=== PATIENT | female | born 1970 | race Caucasian/White ===

== ENCOUNTER 2017-01-21 06:34 | Inpatient (IN) | payer OTHER ==
[2017-01-21 07:22] LABS: Anion Gap 15 mmol/L; Blood Urea Nitrogen 7 mg/dL (7-17); Carbon Dioxide 23 mmol/L (22-30); Glucose 177 mg/dL (65-100); Potassium 3.7 mmol/L (3.6-5.0); Sodium 137 mmol/L (137-145)
[2017-01-21 07:29] LABS: Basophils % (Auto) 0.2 % (0.0-1.8); Eosinophils % (Auto) 0.6 % (0.0-4.3); Hematocrit 34.2 % (30.3-42.9); Hemoglobin 11.2 gm/dl (10.1-14.3); Mean Corpuscular HGB Conc 33 % (30-34); Mean Corpuscular Hemoglobin 29 pg (28-32); Mean Corpuscular Volume 87 fl (79-97); Platelet Count 217 K/mm3 (140-440); Red Blood Count 3.93 M/mm3 (3.65-5.03); Red Cell Distribution Width 15.1 % (13.2-15.2); White Blood Count 6.7 K/mm3 (4.5-11.0)
--- NOTE | 2017-01-21 08:41 | Emergency Department Report ---
ED Syncope HPI - General Chief Complaint: Syncope Stated Complaint: EMESIS/DIZZINESS/FAINTING Time Seen by Provider: 01/21/17 08:25 Source: patient, family, EMS, RN notes reviewed Exam Limitations: language barrier - History of Present Illness Initial Comments: 46-year-old female presents to the emergency department via EMS for evaluation of chest pain and syncope. Additional history obtained from family. Patient states since yesterday she has not been feeling well. She reports intermittent pain from her upper abdomen to her upper chest. Pain is described as sharp in nature. She states the pain lasts for approximately 20 minutes and then will spontaneously resolve. Pain returns after approximately 5 minutes. She reports when pain is present, she is having some trouble breathing. Patient states she has passed out several times since yesterday. At this time, patient is denying pain or difficulty breathing. There are no other complaints. Timing/Prior Episodes: multiple episodes today Precipitating Factors: Positive: pain Context: standing Loss of Consciousness: brief (seconds) Current Symptoms: back to normal - Related Data Allergies/Adverse Reactions: Allergies No Known Allergies Allergy (Unverified 01/21/17 06:43) Home Medications: Ambulatory Orders No Known Home Medications [No Reported Home Medications] 01/21/17 ED Review of Systems ROS: Stated complaint: EMESIS/DIZZINESS/FAINTING Other details as noted in HPI Comment: All other systems reviewed and negative Respiratory: shortness of breath Cardiovascular: chest pain, syncope Gastrointestinal: abdominal pain ED Past Medical Hx - Past Medical History Previous Medical History?: Yes Additional medical history: high cholesterol - Surgical History Past Surgical History?: Yes Additional Surgical History: abdominal surgery (liver) - Family History Family history: no significant - Social History Smoking Status: Never Smoker Substance Use Type: None - Medications Home Medications: Home Medications Medication Instructions Recorded Confirmed Last Taken Type No Known Home Medications [No 01/21/17 01/21/17 Unknown History Reported Home Medications] ED Physical Exam - General Limitations: Language Barrier General appearance: alert, in no apparent distress - Head Head exam: Present: atraumatic, normocephalic - Eye Eye exam: Present: normal appearance, PERRL, EOMI - ENT ENT exam: Present: normal exam, normal orophraynx, mucous membranes moist - Neck Neck exam: Present: normal inspection, full ROM. Absent: tenderness - Respiratory Respiratory exam: Present: normal lung sounds bilaterally. Absent: respiratory distress - Cardiovascular Cardiovascular Exam: Present: regular rate, normal rhythm, normal heart sounds - GI/Abdominal GI/Abdominal exam: Present: soft, normal bowel sounds. Absent: distended, tenderness - Extremities Exam Extremities exam: Present: normal inspection, full ROM. Absent: tenderness - Back Exam Back exam: Present: normal inspection, full ROM. Absent: tenderness - Neurological Exam Neurological exam: Present: alert, oriented X3. Absent: motor sensory deficit - Skin Skin exam: Present: warm, dry, intact ED Course Vital Signs 01/21/17 01/21/17 01/21/17 06:43 07:02 07:57 Temperature 98.2 F Pulse Rate 72 72 69 Respiratory 15 23 Rate Blood Pressure 102/49 Blood Pressure 102/54 [Left] O2 Sat by Pulse 96 97 Oximetry 01/21/17 01/21/17 01/21/17 07:59 08:00 08:01 Temperature Pulse Rate 68 68 68 Respiratory 23 23 21 Rate Blood Pressure 102/49 97/56 97/56 Blood Pressure [Left] O2 Sat by Pulse 97 95 96 Oximetry 01/21/17 01/21/17 01/21/17 08:03 08:05 08:07 Temperature Pulse Rate 69 68 68 Respiratory 23 23 23 Rate Blood Pressure 97/56 97/56 97/56 Blood Pressure [Left] O2 Sat by Pulse 96 97 96 Oximetry 01/21/17 01/21/17 01/21/17 08:09 08:11 08:13 Temperature Pulse Rate 70 68 68 Respiratory 25 H 21 22 Rate Blood Pressure 97/56 97/56 97/56 Blood Pressure [Left] O2 Sat by Pulse 96 96 97 Oximetry 01/21/17 01/21/17 01/21/17 08:15 08:17 08:19 Temperature Pulse Rate 69 66 68 Respiratory 23 21 22 Rate Blood Pressure 97/56 97/56 97/56 Blood Pressure [Left] O2 Sat by Pulse 96 95 96 Oximetry 01/21/17 01/21/17 01/21/17 08:21 08:23 08:25 Temperature Pulse Rate 68 69 66 Respiratory 23 23 22 Rate Blood Pressure 97/56 97/56 97/56 Blood Pressure [Left] O2 Sat by Pulse 96 96 96 Oximetry 01/21/17 01/21/17 01/21/17 08:27 08:29 08:30 Temperature Pulse Rate 73 71 72 Respiratory 14 16 13 Rate Blood Pressure 97/56 97/56 99/61 Blood Pressure [Left] O2 Sat by Pulse 98 97 95 Oximetry 01/21/17 01/21/17 01/21/17 08:31 08:33 08:35 Temperature Pulse Rate 66 68 70 Respiratory 11 L 12 13 Rate Blood Pressure 99/61 99/61 99/61 Blood Pressure [Left] O2 Sat by Pulse 98 97 96 Oximetry 01/21/17 01/21/17 01/21/17 08:37 08:39 08:41 Temperature Pulse Rate 69 69 69 Respiratory 11 L 13 13 Rate Blood Pressure 99/61 99/61 99/61 Blood Pressure [Left] O2 Sat by Pulse 97 97 97 Oximetry 01/21/17 01/21/17 01/21/17 08:43 08:45 08:47 Temperature Pulse Rate 64 68 66 Respiratory 10 L 9 L 11 L Rate Blood Pressure 99/61 99/61 99/61 Blood Pressure [Left] O2 Sat by Pulse 97 97 98 Oximetry 01/21/17 01/21/17 01/21/17 08:49 08:51 08:53 Temperature Pulse Rate 69 66 64 Respiratory 10 L 9 L 12 Rate Blood Pressure 99/61 99/61 99/61 Blood Pressure [Left] O2 Sat by Pulse 96 97 96 Oximetry 01/21/17 01/21/17 01/21/17 08:55 08:57 08:59 Temperature Pulse Rate 68 65 67 Respiratory 19 10 L 12 Rate Blood Pressure 99/61 99/61 99/61 Blood Pressure [Left] O2 Sat by Pulse 97 97 97 Oximetry 01/21/17 01/21/17 01/21/17 09:00 09:01 09:03 Temperature Pulse Rate 66 68 66 Respiratory 15 14 12 Rate Blood Pressure 97/50 97/50 97/50 Blood Pressure [Left] O2 Sat by Pulse 96 98 97 Oximetry 01/21/17 01/21/17 01/21/17 09:05 09:07 09:09 Temperature Pulse Rate 73 69 71 Respiratory 8 L 12 16 Rate Blood Pressure 97/50 97/50 97/50 Blood Pressure [Left] O2 Sat by Pulse 98 98 97 Oximetry 01/21/17 01/21/17 01/21/17 09:11 09:13 09:15 Temperature Pulse Rate 64 69 67 Respiratory 11 L 20 12 Rate Blood Pressure 97/50 97/50 97/50 Blood Pressure [Left] O2 Sat by Pulse 97 97 99 Oximetry 01/21/17 01/21/17 01/21/17 09:17 09:19 09:21 Temperature Pulse Rate 68 68 68 Respiratory 17 13 15 Rate Blood Pressure 97/50 97/50 97/50 Blood Pressure [Left] O2 Sat by Pulse 98 97 97 Oximetry 01/21/17 01/21/17 01/21/17 09:23 09:25 11:31 Temperature Pulse Rate 70 70 Respiratory 20 11 L Rate Blood Pressure 97/50 97/50 97/50 Blood Pressure [Left] O2 Sat by Pulse 97 97 99 Oximetry 01/21/17 11:32 Temperature Pulse Rate 66 Respiratory 14 Rate Blood Pressure 98/69 Blood Pressure [Left] O2 Sat by Pulse 97 Oximetry ED Medical Decision Making - Lab Data Result diagrams: 01/21/17 06:49 01/21/17 06:49 - EKG Data -: EKG Interpreted by Sd EKG shows normal: sinus rhythm, axis, intervals, QRS complexes, ST-T waves Rate: normal - EKG Data When compared to previous EKG there are: previous EKG unavailable Interpretation: normal EKG - Radiology Data Radiology results: report reviewed CTA of the chest shows no evidence of pulmonary embolism. There appears to be bilateral dependent pulmonary edema. - Medical Decision Making Lab and imaging results reviewed and discussed with the patient. Elevated LFTs are noted. Patient states that when her gallbladder was removed, there was gangrene at the site. I do not have any previous lab results to compare the current with. Obtaining right upper quadrant ultrasound. Due to the lab abnormalities and multiple syncopal episodes, the patient will be admitted by the hospitalist for further management. - Differential Diagnosis GERD, atypical chest pain, PE Critical care attestation.: If time is entered above; I have spent that time in minutes in the direct care of this critically ill patient, excluding procedure time. ED Disposition Clinical Impression: Syncope and collapse, Elevated LFTs Disposition: OP ADMITTED IP TO THIS HOSP Is pt being admited?: Yes Condition: Stable Instructions: Syncope (ED) Referrals: PRIMARY CARE, [Primary Care Provider] - 3-5 Days Time of Disposition: 13:56
[2017-01-21] MEDS ORDERED: NACL ONE (09:12)
--- NOTE | 2017-01-21 10:12 | Cat Scan Report ---
CT of the chest: Chest pain, syncope There is good opacification of the pulmonary arteries and veins as well as the cardiac chambers and thoracic aorta. No filling defects identified in the pulmonary arteries or cardiac chambers. The thoracic aorta is normal in size and contour. There is no hilar or mediastinal adenopathy appreciated. No pulmonary nodules, infiltrates, or effusions. There is suspicion of mild dependent edema in the posterior lungs raising suspicion that there may be mild fluid overload. Irregular mild enlargement of the right heart chambers. Sections carried into the upper abdomen demonstrates a low density 12 mm nodule in the left adrenal gland consistent with adenoma. Impressions: 1. No pulmonary embolus identified. 2. Suspicion of mild CHF. 3. Small left adrenal adenoma.
[2017-01-21 12:53] LABS: Alanine Aminotransferase 286 units/L (7-56); Albumin 3.7 g/dL (3.9-5); Albumin/Globulin Ratio 1.4 %; Alkaline Phosphatase 83 units/L (35-129); Bilirubin,Direct < 0.2 mg/dL (0-0.2); Bilirubin,Indirect 0.2 mg/dL; Total Protein 6.4 g/dL (6.3-8.2)
--- NOTE | 2017-01-21 13:11 | XRay Report ---
Lumbar spine series: Trauma, pain. Mild spurs are noted anteriorly at the superior margins of L3 and L4. The vertebral height, alignment, and interspaces are preserved. The bones are well-mineralized. The apophyseal joints are aligned and preserved. Impression: No acute or significant findings.
--- NOTE | 2017-01-21 14:04 | Admit Criteria Form ---
Admission Criteria Documentation: SYNCOPE Clinical Indications for Admission to Inpatient Care ( Place 'X' for any and all applicable criteria): Admission is indicated for syncope and ANY ONE of the following (1)(2)(3)(4)(5) (6)(7) : [X ]I. Inpatient admission required rather than observation care (Also use Syncope: Observation Care Criteria as appropriate) because of ANY ONE of the following: [ ]a) Hemodynamic instability that is severe or persistent [ ]b) Cardiac arrhythmias of immediate concern identified or strongly suspected (eg, needs electrophysiologic study) [ ]c) Acute coronary syndrome identified (Also use Myocardial Infarction or Angina Criteria form ) [ ]d) Structural cardiac disorder (eg, aortic stenosis) suspected as cause that requires immediate correction [ ]e) Respiratory symptoms (eg, dyspnea, tachypnea) that are severe or persistent [ ]f) Neurologic signs or symptoms that are severe or persistent ( eg, stroke, seizures, altered mental status) [ ]g) Severe electrolyte abnormalities requiring inpatient care [ ]h) Supplemental oxygen or respiratory treatment for over 24 hrs that are performable only in acute inpatient setting [ ]i) IV fluid to replace significant ongoing (eg, for over 24 hrs ) losses (>3 L/m2 per day) [ ]j) Continuous intravenous infusion of anticoagulation, platelet inhibitor, vasoactive, or antiarrhythmic medication(15)(16) [ ]k) Pulmonary artery catheter monitoring [ ]l) Temporary pacemaker placement(17) [ ]m) Emergent cardioversion(18) [X ]n) Other conditions, treatment or monitoring requiring inpatient admission [ ]II. Suspicion of imminently dangerous cause (eg, rare causes like pericardial tamponade, pulmonary embolism) [ ]III. Syncope causing severe injury requiring hospitalization Extended stay beyond goal length of stay may be needed for(28) [ ]a) Dangerous arrhythmia(15)(23)(27)(29) [ ]b) Myocardial ischemia [ ]c) Seizure disorder [ ]d) Syncope-related injuries The original [employer] content created by [employer] has been revised. The portions of the content which have been revised are identified through the use of italic text or in bold, and [employer] has neither reviewed nor approved the modified material. All other unmodified content is copyright [employer] [facility] [employer]. Please see references footnoted in the original [facility] edition 2016 Admission Criteria Met: Yes
[2017-01-21] MEDS ORDERED: MORPHINE IV ONE (14:38)
[2017-01-21] MEDS ORDERED: ZOFRAN IV ONE (14:38)
[2017-01-21] MEDS ORDERED: ZOFRAN IV PRN (15:03)
[2017-01-21] MEDS ORDERED: DULCOLAX PR PRN (15:03)
[2017-01-21] MEDS ORDERED: TYLENOL PO PRN (15:03)
[2017-01-21] MEDS ORDERED: MILK OF MAGNESIA PO PRN (15:03)
[2017-01-21] MEDS ORDERED: SODIUM CHLORIDE FLUSH SYRINGE 10 ML IV PRN ×2 (15:14→15:16)
--- NOTE | 2017-01-21 15:20 | History and Physical Report ---
History of Present Illness Date of examination: 01/21/17 Date of admission: 01/21/2017 Chief complaint: passed out x2 last night History of present illness: Patient a 46 Years-old female came in to the ED with complains of passing out and chest pain. patient does not speak Citizen [place], but I was able to get history from her daughter. Patient reported that onset of syncope since yesterday since then she is not feeling well. she mentioned that she passed out three times since yesterday. Also she complain sharp intermittent chest pain. Pain that last for 20 minutes and goes away. Patient denies SOB at present time. Pain is 6/10.Intermittent.No Diaphoresis.No palpitations. Past History Past Medical History: hyperlipidemia Past Surgical History: Other (Abd surgery) Medications and Allergies Allergies Allergy/AdvReac Type Severity Reaction Status Date / Time No Known Allergies Allergy Unverified 01/21/17 06:43 Home Medications Medication Instructions Recorded Confirmed Last Taken Type No Known Home Medications [No 01/21/17 01/21/17 Unknown History Reported Home Medications] Active Meds: Active Medications Acetaminophen (Tylenol) 650 mg PO Q4H PRN PRN Reason: Pain MILD(1-3)/Fever >100.5/[place] Bisacodyl (Dulcolax) 10 mg HI QDAY PRN PRN Reason: Constipation unrelieved by MOM Famotidine (Pepcid) 20 mg PO BID TUTU Dextrose/Sodium Chloride (D5ns) 1,000 mls @ 75 mls/hr IV DIRECT TUTU Magnesium Hydroxide (Milk Of Magnesia) 30 ml PO Q4H PRN PRN Reason: Constipation Ondansetron HCl (Zofran) 4 mg IV Q8H PRN PRN Reason: N/V unrelieved by Reglan Sodium Chloride (Sodium Chloride Flush Syringe 10 Ml) 10 ml IV PRN PRN PRN Reason: LINE FLUSH Sodium Chloride (Sodium Chloride Flush Syringe 10 Ml) 10 ml IV PRN PRN PRN Reason: LINE FLUSH Review of Systems All systems: negative Constitutional: no weight loss, no weight gain, no fever, no chills, no sweats, no night sweats Ears, nose, mouth and throat: no dysphagia, no hoarseness, no sore throat Breasts: deferred Cardiovascular: chest pain, syncope, no dyspnea on exertion, no paroxysmal nocturnal dyspnea, no claudication, no phlebitis, no high blood pressure, no leg edema, no decreased exercise tolerance Respiratory: no cough, no cough with sputum, no excessive sputum, no hemoptysis , no shortness of breath, no dyspnea on exertion Gastrointestinal: no abdominal pain, no nausea, no vomiting, no diarrhea, no constipation, no change in bowel habits, no hematemesis, no coffee ground emesis Genitourinary Female: no flank pain, no menorrhagia, no dysuria, no urinary frequency, no urgency Musculoskeletal: no neck stiffness, no neck pain, no shooting arm pain, no arm numbness/tingling, no low back pain, no shooting leg pain, no leg numbness/ tingling, no redness of joints Integumentary: no rash, no pruritis, no redness, no sores, no wounds, no jaundice, no boils, no blisters Neurological: syncope Psychiatric: no anxiety, no memory loss, no change in sleep habits, no sleep disturbances, no insomnia, no hypersomnia, no change in appetite, no change in libido, no suicidal ideation, no disorientation, no hallucinations Endocrine: no cold intolerance, no heat intolerance, no polyphagia, no excessive thirst, no polydipsia, no polyuria, no nocturia, no excessive sweating , no flushing, no weight change Hematologic/Lymphatic: no easy bruising, no easy bleeding Allergic/Immunologic: no urticaria, no allergic rhinitis, no wheezing Exam - Constitutional Vitals: Temp Pulse Resp BP Pulse Ox 98.2 F 64 18 110/64 97 01/21/17 06:43 01/21/17 14:29 01/21/17 14:46 01/21/17 14:31 01/21/17 14:31 General appearance: Present: no acute distress, well-nourished - EENT Eyes: Present: PERRL ENT: hearing intact, clear oral mucosa - Neck Neck: Present: supple, normal ROM - Respiratory Respiratory effort: normal Respiratory: bilateral: CTA - Cardiovascular Heart Sounds: Present: S1 & S2. Absent: rub, click - Extremities Extremities: pulses symmetrical, No edema Peripheral Pulses: within normal limits - Abdominal General gastrointestinal: Present: soft, non-tender, non-distended, normal bowel sounds Female genitourinary: Present: normal - Integumentary Integumentary: Present: clear, warm, dry - Musculoskeletal Musculoskeletal: gait normal, strength equal bilaterally - Psychiatric Psychiatric: appropriate mood/affect, intact judgment & insight - Neurologic Neurologic: CNII-XII intact, moves all extremities Results - Labs CBC & Chem 7: 01/21/17 06:49 01/21/17 06:49 Labs: Laboratory Last Values WBC 6.7 K/mm3 (4.5-11.0) 01/21/17 06:49 RBC 3.93 M/mm3 (3.65-5.03) 01/21/17 06:49 Hgb 11.2 gm/dl (10.1-14.3) 01/21/17 06:49 Hct 34.2 % (30.3-42.9) 01/21/17 06:49 MCV 87 fl (79-97) 01/21/17 06:49 MCH 29 pg (28-32) 01/21/17 06:49 MCHC 33 % (30-34) 01/21/17 06:49 RDW 15.1 % (13.2-15.2) 01/21/17 06:49 Plt Count 217 K/mm3 (140-440) 01/21/17 06:49 Lymph % (Auto) 15.3 % (13.4-35.0) 01/21/17 06:49 [place] % (Auto) 7.7 % (0.0-7.3) H 01/21/17 06:49 Eos % (Auto) 0.6 % (0.0-4.3) 01/21/17 06:49 Baso % (Auto) 0.2 % (0.0-1.8) 01/21/17 06:49 Lymph # 1.0 K/mm3 (1.2-5.4) L 01/21/17 06:49 [place] # 0.5 K/mm3 (0.0-0.8) 01/21/17 06:49 Eos # 0.0 K/mm3 (0.0-0.4) 01/21/17 06:49 Baso # 0.0 K/mm3 (0.0-0.1) 01/21/17 06:49 Seg Neutrophils % 76.2 % (40.0-70.0) H 01/21/17 06:49 Seg Neutrophils # 5.1 K/mm3 (1.8-7.7) 01/21/17 06:49 D-Dimer 576.05 ng/mlDDU (0-234) H 01/21/17 08:34 Sodium 137 mmol/L (137-145) 01/21/17 06:49 Potassium 3.7 mmol/L (3.6-5.0) 01/21/17 06:49 Chloride 103.0 mmol/L (98-107) 01/21/17 06:49 Carbon Dioxide 23 mmol/L (22-30) 01/21/17 06:49 Anion Gap 15 mmol/L 01/21/17 06:49 BUN 7 mg/dL (7-17) 01/21/17 06:49 Creatinine 0.5 mg/dL (0.7-1.2) L 01/21/17 06:49 Estimated GFR > 60 ml/min 01/21/17 06:49 BUN/Creatinine Ratio 14.00 % 01/21/17 06:49 Glucose 177 mg/dL (65-100) H 01/21/17 06:49 Calcium 8.0 mg/dL (8.4-10.2) L 01/21/17 06:49 Total Bilirubin 0.40 mg/dL (0.1-1.2) 01/21/17 08:47 Direct Bilirubin < 0.2 mg/dL (0-0.2) 01/21/17 08:47 Indirect Bilirubin 0.2 mg/dL 01/21/17 08:47 AST 384 units/L (5-40) H 01/21/17 08:47 ALT 286 units/L (7-56) H 01/21/17 08:47 Alkaline Phosphatase 83 units/L (35-129) 01/21/17 08:47 Troponin T < 0.010 ng/mL (0.00-0.029) 01/21/17 08:47 Total Protein 6.4 g/dL (6.3-8.2) 01/21/17 08:47 Albumin 3.7 g/dL (3.9-5) L 01/21/17 08:47 Albumin/Globulin Ratio 1.4 % 01/21/17 08:47 Assessment and Plan Advance Directives: Yes (Full Code) VTE prophylaxis?: Chemical Plan of care discussed with patient/family: Yes - Patient Problems (1) Syncope and collapse Current Visit: Yes Status: Acute Plan to address problem: Syncope w/u including ECHO Carotid duplex scan and stress test (2) Chest pain Current Visit: Yes Status: Acute Qualifiers: Chest pain type: C Ischemic chest pain type: I (3) Chest pain at rest Current Visit: Yes Status: Acute Plan to address problem: Serial cardiac enzymes and Lexiscan in AM (4) Transaminitis Current Visit: Yes Status: Acute Plan to address problem: Check Acute Hepatitis profile (5) DVT prophylaxis Current Visit: Yes Status: Acute Plan to address problem: Lovenox 40 mg sq qd
--- NOTE | 2017-01-21 15:55 | Ultrasound Report ---
Ultrasound of the right upper quadrant. History: Elevated LFTs and right upper quadrant pain. Findings: The abdominal aorta and liver are normal. The gallbladder has been removed. The common bile duct measures 3 .6 mm in diameter which is normal. The right kidney is normal in size and configuration with no evidence of mass or hydronephrosis. The pancreas is not well imaged in the body and tail region due to body habitus and bowel gas. Impression: Normal study status post cholecystectomy.
[2017-01-21] MEDS ORDERED: D5NS 1,000 ML IV SCH (16:00)
[2017-01-21 17:16] LABS: Creatine Kinase MB 2.9 ng/mL (0.0-4.0)
[2017-01-21 17:17] LABS: Creatine Kinase 85 units/L (30-135)
[2017-01-21 21:18] LABS: Creatine Kinase MB 2.6 ng/mL (0.0-4.0)
[2017-01-21 21:19] LABS: Creatine Kinase 98 units/L (30-135)
[2017-01-21] MEDS: PEPCID PO SCH (21:51)
[2017-01-22 07:31] LABS: Basophils % (Auto) 0.4 % (0.0-1.8); Eosinophils % (Auto) 2.1 % (0.0-4.3); Hemoglobin 11.1 gm/dl (10.1-14.3); Mean Corpuscular HGB Conc 33 % (30-34); Mean Corpuscular Hemoglobin 28 pg (28-32); Mean Corpuscular Volume 86 fl (79-97); Platelet Count 227 K/mm3 (140-440); Red Blood Count 3.94 M/mm3 (3.65-5.03); Red Cell Distribution Width 16.1 % (13.2-15.2); White Blood Count 4.5 K/mm3 (4.5-11.0)
[2017-01-22 07:42] LABS: Anion Gap 13 mmol/L; Blood Urea Nitrogen 7 mg/dL (7-17); Calcium 7.9 mg/dL (8.4-10.2); Carbon Dioxide 25 mmol/L (22-30); Chloride 105.7 mmol/L (98-107); Glucose 126 mg/dL (65-100); Sodium 140 mmol/L (137-145)
[2017-01-22] MEDS ORDERED: LEXISCAN IV ONE ×2 (09:21→09:27)
[2017-01-22] MEDS: PEPCID PO SCH (12:00)
--- NOTE | 2017-01-22 13:44 | Progress Note ---
Hospitalist Physical - Constitutional Vitals: Temp Pulse Resp BP Pulse Ox 98.2 F 58 L 20 94/57 97 01/22/17 07:40 01/22/17 12:54 01/22/17 10:00 01/22/17 07:40 01/22/17 10:00 General appearance: Present: no acute distress, well-nourished Results - Labs CBC & Chem 7: 01/22/17 06:33 01/22/17 06:33 Labs: Laboratory Last Values WBC 4.5 K/mm3 (4.5-11.0) 01/22/17 06:33 RBC 3.94 M/mm3 (3.65-5.03) 01/22/17 06:33 Hgb 11.1 gm/dl (10.1-14.3) 01/22/17 06:33 Hct 34.0 % (30.3-42.9) 01/22/17 06:33 MCV 86 fl (79-97) 01/22/17 06:33 MCH 28 pg (28-32) 01/22/17 06:33 MCHC 33 % (30-34) 01/22/17 06:33 RDW 16.1 % (13.2-15.2) H 01/22/17 06:33 Plt Count 227 K/mm3 (140-440) 01/22/17 06:33 Lymph % (Auto) 40.8 % (13.4-35.0) H 01/22/17 06:33 [place] % (Auto) 13.8 % (0.0-7.3) H 01/22/17 06:33 Eos % (Auto) 2.1 % (0.0-4.3) 01/22/17 06:33 Baso % (Auto) 0.4 % (0.0-1.8) 01/22/17 06:33 Lymph # 1.9 K/mm3 (1.2-5.4) 01/22/17 06:33 [place] # 0.6 K/mm3 (0.0-0.8) 01/22/17 06:33 Eos # 0.1 K/mm3 (0.0-0.4) 01/22/17 06:33 Baso # 0.0 K/mm3 (0.0-0.1) 01/22/17 06:33 Seg Neutrophils % 42.9 % (40.0-70.0) 01/22/17 06:33 Seg Neutrophils # 1.9 K/mm3 (1.8-7.7) 01/22/17 06:33 D-Dimer 576.05 ng/mlDDU (0-234) H 01/21/17 08:34 Sodium 140 mmol/L (137-145) 01/22/17 06:33 Potassium 4.0 mmol/L (3.6-5.0) 01/22/17 06:33 Chloride 105.7 mmol/L (98-107) 01/22/17 06:33 Carbon Dioxide 25 mmol/L (22-30) 01/22/17 06:33 Anion Gap 13 mmol/L 01/22/17 06:33 BUN 7 mg/dL (7-17) 01/22/17 06:33 Creatinine 0.5 mg/dL (0.7-1.2) L 01/22/17 06:33 Estimated GFR > 60 ml/min 01/22/17 06:33 BUN/Creatinine Ratio 14.00 % 01/22/17 06:33 Glucose 126 mg/dL (65-100) H 01/22/17 06:33 Calcium 7.9 mg/dL (8.4-10.2) L 01/22/17 06:33 Total Bilirubin 0.40 mg/dL (0.1-1.2) 01/21/17 08:47 Direct Bilirubin < 0.2 mg/dL (0-0.2) 01/21/17 08:47 Indirect Bilirubin 0.2 mg/dL 01/21/17 08:47 AST 384 units/L (5-40) H 01/21/17 08:47 ALT 286 units/L (7-56) H 01/21/17 08:47 Alkaline Phosphatase 83 units/L (35-129) 01/21/17 08:47 Total Creatine Kinase 98 units/L (30-135) 01/21/17 20:38 CK-MB (CK-2) 2.6 ng/mL (0.0-4.0) 01/21/17 20:38 CK-MB (CK-2) Rel Index 2.6 (0-4) 01/21/17 20:38 Troponin T < 0.010 ng/mL (0.00-0.029) 01/21/17 20:38 Total Protein 6.4 g/dL (6.3-8.2) 01/21/17 08:47 Albumin 3.7 g/dL (3.9-5) L 01/21/17 08:47 Albumin/Globulin Ratio 1.4 % 01/21/17 08:47 Hepatitis C Antibody Non-reactive (NonReactive) 01/21/17 20:38
[2017-01-22 13:57] VITALS: BP 116/69
--- NOTE | 2017-01-22 15:11 | Consultation ---
History of Present Illness Consult date: 01/22/17 Consult reason: syncope History of present illness: The patient is a 46-year-old woman who presented to the hospital following a syncopal episode. She reported an upper pain by one to 2 day period, followed by repeated brief syncopal episodes. There was no exertional chest pain or angina, no shortness of breath, no palpitations and no lower extremity edema. On presentation, her ECG is normal sinus rhythm, and no acute changes. Serial cardiac enzymes were negative. A Persantin thallium stress test done today was normal. An echocardiogram done today was normal left ventricle systolic function, ejection fraction 55-60%, no significant valvular lesions. Of note, she associated with her presenting abdominal pain, the patient has elevated liver enzymes with SGOT and SGPT in the 300s. Past History Past Medical History: hyperlipidemia Past Surgical History: Other (Abd surgery) Medications and Allergies Allergies Allergy/AdvReac Type Severity Reaction Status Date / Time No Known Allergies Allergy Unverified 01/21/17 06:43 Home Medications Medication Instructions Recorded Confirmed Last Taken Type No Known Home Medications [No 01/21/17 01/21/17 Unknown History Reported Home Medications] Active Meds: Active Medications Acetaminophen (Tylenol) 650 mg PO Q4H PRN PRN Reason: Pain MILD(1-3)/Fever >100.5/[place] Bisacodyl (Dulcolax) 10 mg SD QDAY PRN PRN Reason: Constipation unrelieved by [facility] [place] Famotidine (Pepcid) 20 mg PO BID TUTU Last Admin: 01/22/17 12:00 Dose: 20 mg Dextrose/Sodium Chloride (D5ns) 1,000 mls @ 75 mls/hr IV DIRECT TUTU Magnesium Hydroxide (Milk Of Magnesia) 30 ml PO Q4H PRN PRN Reason: Constipation Ondansetron HCl (Zofran) 4 mg IV Q8H PRN PRN Reason: N/V unrelieved by Reglan Sodium Chloride (Sodium Chloride Flush Syringe 10 Ml) 10 ml IV PRN PRN PRN Reason: LINE FLUSH Sodium Chloride (Sodium Chloride Flush Syringe 10 Ml) 10 ml IV PRN PRN PRN Reason: LINE FLUSH Review of Systems Cardiovascular: syncope, no chest pain, no orthopnea, no palpitations, no rapid/ irregular heart beat, no edema, no lightheadedness, no shortness of breath Physical Examination Vital Signs Temp Pulse Resp BP Pulse Ox 98.2 F 72 15 102/54 96 01/21/17 06:43 01/21/17 06:43 01/21/17 06:43 01/21/17 06:43 01/21/17 06:43 General appearance: no acute distress HEENT: Positive: PERRL Neck: Positive: neck supple Cardiac: Positive: Reg Rate and Rhythm Lungs: Positive: Normal Exam Neuro: Positive: Grossly Intact Abdomen: Positive: Soft Female genitourinary: deferred Skin: Positive: Clear Extremities: Absent: edema Results 01/22/17 06:33 01/22/17 06:33 Cardiac Enzymes 01/21/17 01/21/17 Range/Units 16:26 20:38 CK-MB (CK-2) 2.9 2.6 (0.0-4.0) ng/mL CBC 01/22/17 Range/Units 06:33 WBC 4.5 (4.5-11.0) K/mm3 RBC 3.94 (3.65-5.03) M/mm3 Hgb 11.1 (10.1-14.3) gm/dl Hct 34.0 (30.3-42.9) % Plt Count 227 (140-440) K/mm3 Lymph # 1.9 (1.2-5.4) K/mm3 Wells # 0.6 (0.0-0.8) K/mm3 Eos # 0.1 (0.0-0.4) K/mm3 Baso # 0.0 (0.0-0.1) K/mm3 Comprehensive Metabolic Panel 01/22/17 Range/Units 06:33 Sodium 140 (137-145) mmol/L Potassium 4.0 (3.6-5.0) mmol/L Chloride 105.7 (98-107) mmol/L Carbon Dioxide 25 (22-30) mmol/L BUN 7 (7-17) mg/dL Creatinine 0.5 L (0.7-1.2) mg/dL Glucose 126 H (65-100) mg/dL Calcium 7.9 L (8.4-10.2) mg/dL EKG interpretations - Telemetry EKG Rhythm: Sinus Rhythm Assessment and Plan - Patient Problems (1) Syncope and collapse Current Visit: Yes Status: Acute Plan to address problem: Cardiac syncope workup is negative, ECG is normal, enzymes are normal, echocardiogram and thallium stress test are both normal.
--- NOTE | 2017-01-22 16:54 | Discharge Summary ---
Providers - Providers Date of Admission: 01/21/17 14:11 Date of discharge: 01/22/17 Attending physician: LAUREN LINO 01/21/17 Consult to Cardiac Rehabilitation [CONS] Routine Reason For Exam: Phase I Consult to Cardiac Rehabilitation [CONS] Routine Reason For Exam: Phase I 01/22/17 08:12 Consult to Physician [CONS] Routine Consulting Provider: MARIE KING Reason For Exam: chest pain, syncope Place consult to:: Dr. King Notified:: Migel ROWE Was contact made?: Yes If yes, spoke with:: Negro Tripp Time called:: 09:31 Primary care physician: IMPROVEMENT INTERN Hospitalization Condition: Stable Disposition: STILL A PATIENT - Discharge Diagnoses (1) Vasovagal syncope Status: Acute (2) Chest pain Status: Acute Qualifiers: Chest pain type: C Ischemic chest pain type: I (3) Elevated LFTs Status: Acute (4) Transaminitis Status: Acute Exam - Constitutional Vitals: Temp Pulse Resp BP Pulse Ox 98.2 F 58 L 20 116/69 97 01/22/17 07:40 01/22/17 12:54 01/22/17 10:00 01/22/17 10:17 01/22/17 10:00 Plan Activity: no restrictions Diet: low fat, low cholesterol, low salt Additional Instructions: 1.Follow up with GI Physician, Dr. Tate in 2 weeks for elevatd LFT. 2.Repeat LFT in 2 weeks. 3.Elevated LFT to be followed by [facility]. 4.Follow with [facility] on 02/05/17. 5.Small left adrenal adenoma [facility] Follow up with: [facility] [Outside] - 02/05/17 1:15 pm PRIMARY CAREMD [Primary Care Provider] - 3-5 Days Prescriptions: Famotidine [Pepcid] 20 mg PO BID #60 tablet HYDROcodone/APAP 5-325 [[place] 5/325] 1 each PO Q6HR PRN #10 tablet PRN Reason: Pain Omeprazole Magnesium [PriLOSEC Otc] 20 mg PO QDAY #30 tablet.
--- NOTE | 2017-01-23 00:04 | Treadmill Report ---
THALLIUM STRESS TEST LEFT VENTRICLE: Left ventricular chamber size is within normal. Perfusion study demonstrates homogeneous uptake of the tracer in all segments, no significant perfusion defects identified. Gated analysis demonstrates normal left ventricular systolic function, ejection fraction greater than 70%. CONCLUSION: Normal myocardial perfusion study. JOB# [id number] CA/NTS
--- NOTE | 2017-01-26 07:05 | Vascular Lab Report ---
CAROTID DUPLEX STUDY: RIGHT PSVEDV CCA PROX:[id number] CCA DIST:11613 ICA PROX: 7425 ICA MID: 9045 ICA DIST: 7934 ECA: [id number] VERT: 58 17 LEFT PSVEDV CCA PROX:[id number] CCA DIST:89249 ICA PROX:71558 ICA MID: 8935 ICA DIST: 7932 ECA: 20453 VERT: 60 17 REASON FOR EXAM: Carotid artery stenosis/syncope. COMMENTS ON THE RIGHT: Doppler frequency analysis is consistent with 16 to 49 percent diameter reduction of the internal carotid artery. Minimal amount of plaque is seen. The common carotid artery is patent. The external carotid artery is patent. The vertebral artery has antegrade flow. COMMENTS ON THE LEFT: Doppler frequency analysis is consistent with 16 to 49 percent diameter reduction of the internal carotid artery. Minimal amount of plaque is seen. The common carotid artery is patent. The external carotid artery is patent. The vertebral artery has antegrade flow. IMPRESSION: Less than 50% diameter reduction in the internal carotid arteries bilaterally. Consider repeat carotid artery duplex in 12 months.
== END 2017-01-22 17:48 | disposition home or self-care (01) | DRG 312 ==
LOC: ED 06:34 → 4A 14:11
PROVIDERS: ADMIT Internal Medicine; ATTEND Internal Medicine
PROC: 4A02XM4 Measurement of Cardiac Total Activity, External Approach (ICD-10-PCS; principal; 2017-01-21)
DX: R55 Syncope and collapse (principal); R07.9 Chest pain, unspecified; E78.5 Hyperlipidemia, unspecified; R74.0 Nonspecific elevation of levels of transaminase and lactic acid dehydrogenase [LDH]; R79.89 Other specified abnormal findings of blood chemistry
CPT/HCPCS: 36415; 71275; 72110; 76705; 78452; 80048; 80074; 82550; 82553; 83690; 84484; 85025; 85379; 93005; 93010; 93017; 93306; 93880; 96374; 96375; A9502; J2270; J2405; J2785; J7042; Q9967

== ENCOUNTER 2021-04-16 11:04 | Inpatient (IN) | payer OTHER, SELFPAY ==
--- NOTE | 2021-04-16 11:22 | Emergency Department Report ---
<HERMAN WOOD - Last Filed: 04/18/21 02:55> ED Shortness of Breath HPI - General Chief Complaint: Dyspnea/Respdistress Stated Complaint: COVID+ Time Seen by Provider: 04/16/21 11:16 Source: patient, EMS Mode of arrival: Ambulatory Limitations: Language Barrier - History of Present Illness Initial Comments: 50-year-old female is unvaccinated for Covid comes in via EMS for difficulty breathing. Patient states that she tested +1-week ago. Patient reports she had a slight fever. Chest pain coughing a lot. Patient denies any history of diabetes or hypertension but does report history of high cholesterol. MD Complaint: shortness of breath Onset/Timin - Related Data Previous Rx's Medication Instructions Recorded Last Taken Type Famotidine [Pepcid] 20 mg PO BID #60 tablet 01/22/17 Unknown Rx HYDROcodone/APAP 5-325 [[place] 1 each PO Q6HR PRN #10 tablet 01/22/17 Unknown Rx 5/325] Omeprazole Magnesium [PriLOSEC Otc] 20 mg PO QDAY #30 tablet. 01/22/17 Unknown Rx Allergies Allergy/AdvReac Type Severity Reaction Status Date / Time No Known Allergies Allergy Unverified 01/21/17 06:43 ED Past Medical Hx - Past Medical History Previous Medical History?: Yes Additional medical history: high cholesterol - Surgical History Past Surgical History?: Yes Additional Surgical History: abdominal surgery (liver) - Social History Smoking Status: Never Smoker - Medications Home Medications: Home Medications Medication Instructions Recorded Confirmed Last Taken Type Famotidine [Pepcid] 20 mg PO BID #60 tablet 01/22/17 Unknown Rx HYDROcodone/APAP 5-325 [[place] 1 each PO Q6HR PRN #10 tablet 01/22/17 Unknown Rx 5/325] Omeprazole Magnesium [PriLOSEC Otc] 20 mg PO QDAY #30 tablet. 01/22/17 Unknown Rx ED Physical Exam - General Limitations: Language Barrier ED Course - Consultations Consultation #1: 04/16/21 13:[address] Dejesus ER attending who recommends patient to be admitted Consultation #2: 04/16/21 13:[address] Palmer hospitalist regarding patient needing admission. He states he will be down to see patient. ED Medical Decision Making - Lab Data Result diagrams: 04/17/21 03:50 04/17/21 15:04 - Radiology Data Radiology results: report reviewed Accession No. [id number] Creator KAVON ASHBY Patient Name/ID SUBHASH SEBASTIAN / [id number] Dictator Study Date 2021-04-16 12:04:20 [place] Sex / Age F / 50Y Currency Counter KAVON ASHBY Institution [facility] Approval Date 2021-04-16 12:55:45 Other Patient ID My Comment(s) Study Comments [facility] [address] [place] [address] XRay Report Signed Patient: ROMULO CULLEN MR#: [id number] : 1970 Acct:[id number] Age/Sex: 50 / F ADM Date: 04/16/21 Loc: ED Attending Dr: Ordering Physician: ISAURA JACK Date of Service: 04/16/21 Procedure(s): XR chest 1V ap Accession Number(s): [id number] cc: ISAURA JACK Fluoro Time In Minutes: CHEST 1 VIEW 04/16/2021 12:04 PM INDICATION / CLINICAL INFORMATION: Covid positive with shortness of breath and hypoxi. COMPARISON: None available. FINDINGS: SUPPORT DEVICES: None. HEART / MEDIASTINUM: No significant abnormality. LUNGS / PLEURA: Bilateral infiltrates predominantly at the mid/lower zones greatest at the left base where changes are relatively dense. Possible small basilar effusions. No pneumothorax. ADDITIONAL FINDINGS: No significant additional findings. IMPRESSION: Bilateral pneumonia greatest at the lung bases left greater than right. Signer Name: Kavon Ashby MD Signed: 04/16/2021 12:24 PM Workstation Name: [id number] Transcribed By: ES Dictated By: Kavon Ashby MD Electronically Authenticated By: Kavon Ashby MD Signed Date/Time: 04/16/21 1224 DD/ 122 TD/TT: - Medical Decision Making 50-year-old female is unvaccinated for Covid comes in via EMS for difficulty breathing. Patient states that she tested +1-week ago. Patient reports she had a slight fever. Chest pain coughing a lot. Patient denies any history of diabetes or hypertension but does report history of high cholesterol. Patient saturations dropped to 87 when patient walked from acute waiting room to room 35. Patient is requiring 3 L of oxygen to maintain a saturation above 92. Chest x-ray ordered Covid labs ordered INT ordered normal saline dexamethasone 10 mg Iv. Acetaminophen 975. An EKG Critical Care Time: Yes (35) ED Disposition Clinical Impression: Acute hypoxemic respiratory failure, Suspected 2019 novel coronavirus infection, Hyperglycemia Pneumonia Qualifiers: Aspiration pneumonia type: unspecified Laterality: unspecified laterality Lung location: unspecified part of lung Disposition: DC-09 OP ADMIT IP TO THIS HOSP Is pt being admited?: No Does the pt Need Aspirin: No Condition: Fair <HARLEY DEJESUS - Last Filed: 04/18/21 15:27> ED Review of Systems ROS: Stated complaint: COVID+ Other details as noted in HPI ED Course Vital Signs 04/16/21 04/16/21 04/16/21 11:10 16:56 19:39 Temperature 99.0 F Pulse Rate 84 73 86 Respiratory 24 23 17 Rate Blood Pressure 149/86 Blood Pressure 131/78 [Left] O2 Sat by Pulse 96 95 92 Oximetry 04/17/21 04/18/21 04/18/21 20:00 00:51 01:00 Temperature Pulse Rate 84 Respiratory 17 Rate Blood Pressure 149/84 149/84 Blood Pressure [Left] O2 Sat by Pulse 93 89 88 Oximetry 04/18/21 04/18/21 04/18/21 02:01 02:31 02:45 Temperature Pulse Rate Respiratory Rate Blood Pressure 145/84 126/76 131/73 Blood Pressure [Left] O2 Sat by Pulse 88 92 90 Oximetry 04/18/21 04/18/21 04/18/21 03:01 03:04 03:15 Temperature Pulse Rate 78 Respiratory 17 Rate Blood Pressure 134/77 134/77 Blood Pressure [Left] O2 Sat by Pulse 93 94 94 Oximetry 04/18/21 04/18/21 04/18/21 03:31 03:45 04:01 Temperature Pulse Rate Respiratory Rate Blood Pressure 146/83 146/83 151/84 Blood Pressure [Left] O2 Sat by Pulse 93 92 94 Oximetry 04/18/21 04/18/21 04/18/21 04:15 04:31 04:45 Temperature Pulse Rate Respiratory Rate Blood Pressure 151/84 143/85 143/85 Blood Pressure [Left] O2 Sat by Pulse 93 92 92 Oximetry 04/18/21 04/18/21 04/18/21 05:01 05:15 05:30 Temperature Pulse Rate Respiratory Rate Blood Pressure 140/82 143/85 140/82 Blood Pressure [Left] O2 Sat by Pulse 92 90 91 Oximetry 04/18/21 04/18/21 04/18/21 05:45 06:01 06:15 Temperature Pulse Rate Respiratory Rate Blood Pressure 150/81 144/81 150/81 Blood Pressure [Left] O2 Sat by Pulse 89 87 90 Oximetry 04/18/21 04/18/21 04/18/21 06:31 06:45 07:01 Temperature Pulse Rate Respiratory Rate Blood Pressure 148/82 148/82 142/76 Blood Pressure [Left] O2 Sat by Pulse 86 89 89 Oximetry 04/18/21 04/18/21 04/18/21 07:15 07:31 07:45 Temperature Pulse Rate Respiratory Rate Blood Pressure 142/76 129/79 129/79 Blood Pressure [Left] O2 Sat by Pulse 88 89 87 Oximetry 04/18/21 04/18/21 04/18/21 07:52 08:00 09:48 Temperature Pulse Rate 84 79 Respiratory 32 H Rate Blood Pressure Blood Pressure 141/81 [Left] O2 Sat by Pulse 90 92 Oximetry 04/18/21 04/18/21 12:35 13:40 Temperature 98.0 F Pulse Rate 80 Respiratory 18 Rate Blood Pressure Blood Pressure 138/78 [Left] O2 Sat by Pulse 92 98 Oximetry ED Medical Decision Making - Lab Data Result diagrams: 04/18/21 05:06 04/18/21 05:06 Critical Care Time: Yes Critical care attestation.: If time is entered above; I have spent that time in minutes in the direct care of this critically ill patient, excluding procedure time. ED Disposition Is pt being admited?: Yes
[2021-04-16 12:38] LABS: Alanine Aminotransferase 23 units/L (7-56); Albumin 3.8 g/dL (3.9-5); Blood Urea Nitrogen 16 mg/dL (7-17); Calcium 10.2 mg/dL (8.4-10.2); Hemolysis Index 1
[2021-04-16 12:39] LABS: C-Reactive Protein 15.2 mg/dL (0.00-1.30)
[2021-04-16 12:41] LABS: BUN/Creatinine Ratio 27
[2021-04-16 12:51] LABS: Basophils % (Auto) 0.2 % (0.0-1.8); Hematocrit 39.4 % (30.3-42.9); Hemoglobin 13.4 gm/dl (10.1-14.3); Lymphocytes # (Auto) 0.8 K/mm3 (1.2-5.4); Lymphocytes % (Auto) 7.8 % (13.4-35.0); Mean Corpuscular HGB Conc 34 % (30-34); Mean Corpuscular Volume 88 fl (79-97); Monocytes # (Auto) 0.4 K/mm3 (0.0-0.8); Monocytes % (Auto) 4.3 % (0.0-7.3); Platelet Count 316 K/mm3 (140-440); Red Blood Count 4.47 M/mm3 (3.65-5.03); Red Cell Distribution Width 16.1 % (13.2-15.2)
--- NOTE | 2021-04-16 12:54 | XRay Report ---
CHEST 1 VIEW 04/16/2021 12:04 PM INDICATION / CLINICAL INFORMATION: Covid positive with shortness of breath and hypoxi. COMPARISON: None available. FINDINGS: SUPPORT DEVICES: None. HEART / MEDIASTINUM: No significant abnormality. LUNGS / PLEURA: Bilateral infiltrates predominantly at the mid/lower zones greatest at the left base where changes are relatively dense. Possible small basilar effusions. No pneumothorax. ADDITIONAL FINDINGS: No significant additional findings. IMPRESSION: Bilateral pneumonia greatest at the lung bases left greater than right. Signer Name: Kavon Ashby MD Signed: 04/16/2021 12:24 PM Workstation Name: [id number]
[2021-04-16] MEDS ORDERED: SODIUM CHLORIDE 0.9% 1000 ML 1,000 ML IV ONE (13:37)
[2021-04-16] MEDS ORDERED: dexAMETHasone 20 MG/5 ML VIAL IV ONE (13:37)
[2021-04-16] MEDS ORDERED: ALBUTEROL 2.5 MG/3 ML NEBU IH PRN (13:39)
--- NOTE | 2021-04-16 13:39 | History and Physical Report ---
History of Present Illness Chief complaint: I cannot breathe History of present illness: 50 YO Female with GERD, Obesity, HLD presents to ED for evaluation. Patient reports "I cannot breathe". Patient states that she has experienced subjective fever, shortness of breath, malaise, body aches, dry cough, and shortness of breath over the past 1 week with progressively worsening symptoms over the same timeframe. EMS was notified and upon arrival the patient was found to be in distress and subsequent transported to [facility] for further care and evaluation of the aforementioned symptoms. The patient was seen and evaluated in the emergency department. All lab and imaging studies reviewed. Patient found to have a pulse oximetry of 86% with exertion on room air which is consistent with acute hypoxemic respiratory failure. Patient with chest x-ray which revealed bilateral pneumonia. Patient admitted to medical floor and initiated him on pneumonia protocol as well as coronavirus protocol. Patient knowledges fever but denies chills, chest pain, palpitation, skin rash, recent ill contacts, or known exposure to COVID-19. Prior admission on 01/21/2017 reviewed. All medication listed at time of admission has been reconciled. Patient is unvaccinated for coronavirus infection. Past History Past Medical History: GERD, hyperlipidemia, other (See HPI) Past Surgical History: Other (Abdominal surgery: Liver) Social history: , lives with family. denies: smoking, alcohol abuse Family history: hypertension Medications and Allergies Allergies Allergy/AdvReac Type Severity Reaction Status Date / Time No Known Allergies Allergy Unverified 01/21/17 06:43 Home Medications Medication Instructions Recorded Confirmed Last Taken Type Famotidine [Pepcid] 20 mg PO BID #60 tablet 01/22/17 Unknown Rx HYDROcodone/APAP 5-325 [[place] 1 each PO Q6HR PRN #10 tablet 01/22/17 Unknown Rx 5/325] Omeprazole Magnesium [PriLOSEC Otc] 20 mg PO QDAY #30 tablet. 01/22/17 Unknown Rx Active Meds: Active Medications Sodium Chloride (Nacl 0.9% 1000 Ml) 1,000 mls @ 999 mls/hr IV BOLUS ONE Stop: 04/16/21 14:37 Review of Systems Constitutional: fever, chills, malaise, lethargy, no weight loss, no weight gain Ears, nose, mouth and throat: no ear pain, no tinnitis, no nose pain, no nasal congestion Breasts: no change in shape, no swelling, no mass Cardiovascular: shortness of breath, no chest pain, no orthopnea, no palpitations Respiratory: cough, cough with sputum, shortness of breath Gastrointestinal: no abdominal pain, no nausea, no vomiting, no change in bowel habits Genitourinary Female: no pelvic pain, no flank pain, no dysuria, no urinary frequency, no urgency Rectal: no pain, no incontinence, no bleeding Musculoskeletal: no neck stiffness, no arm numbness/tingling, no low back pain, no shooting leg pain Integumentary: no rash, no redness, no wounds, no jaundice Neurological: no transient paralysis, no paralysis, no parathesias, no numbness Psychiatric: no anxiety, no memory loss, no sleep disturbances, no insomnia, no hypersomnia Endocrine: no cold intolerance, no excessive thirst, no polyuria, no nocturia Hematologic/Lymphatic: no easy bruising, no easy bleeding Allergic/Immunologic: no urticaria, no allergic rhinitis, no wheezing Exam - Constitutional Vitals: Temp Pulse Resp BP Pulse Ox 99.0 F 84 24 149/86 96 04/16/21 11:10 04/16/21 11:10 04/16/21 11:10 04/16/21 11:10 04/16/21 11:10 General appearance: Absent: no acute distress, mild distress - EENT Eyes: Present: PERRL ENT: hearing intact, clear oral mucosa - Neck Neck: Present: supple, normal ROM - Respiratory Respiratory effort: normal Respiratory: bilateral: CTA - Cardiovascular Heart Sounds: Present: S1 & S2. Absent: rub, click - Extremities Extremities: pulses symmetrical, No edema Peripheral Pulses: within normal limits - Abdominal General gastrointestinal: Present: soft, non-tender, non-distended, normal bowel sounds Female genitourinary: Present: normal - Integumentary Integumentary: Present: clear, warm, dry - Musculoskeletal Musculoskeletal: gait normal, strength equal bilaterally - Psychiatric Psychiatric: appropriate mood/affect, intact judgment & insight - Neurologic Neurologic: CNII-XII intact, moves all extremities Results - Labs CBC & Chem 7: 04/16/21 11:42 04/16/21 11:42 Labs: Abnormal lab results 04/16/21 04/16/21 04/16/21 Range/Units 11:42 11:42 11:42 RDW 16.1 H (13.2-15.2) % Lymph % (Auto) 7.8 L (13.4-35.0) % Lymph # (Auto) 0.8 L (1.2-5.4) K/mm3 Seg Neutrophils % 87.7 H (40.0-70.0) % Seg Neutrophils # 8.5 H (1.8-7.7) K/mm3 D-Dimer 338.70 H (0-234) ng/mlDDU Glucose 194 H (65-100) mg/dL Ferritin (10.0-200.0) ng/mL Lactate Dehydrogenase (91-180) units/L C-Reactive Protein (0.00-1.30) mg/dL Total Protein 8.4 H (6.3-8.2) g/dL Albumin 3.8 L (3.9-5) g/dL 04/16/21 04/16/21 Range/Units 11:42 11:42 RDW (13.2-15.2) % Lymph % (Auto) (13.4-35.0) % Lymph # (Auto) (1.2-5.4) K/mm3 Seg Neutrophils % (40.0-70.0) % Seg Neutrophils # (1.8-7.7) K/mm3 D-Dimer (0-234) ng/mlDDU Glucose 195 H (65-100) mg/dL Ferritin 254.3 H (10.0-200.0) ng/mL Lactate Dehydrogenase 359 H (91-180) units/L C-Reactive Protein 15.20 H (0.00-1.30) mg/dL Total Protein (6.3-8.2) g/dL Albumin (3.9-5) g/dL Assessment and Plan - Patient Problems (1) Acute hypoxemic respiratory failure Current Visit: Yes Status: Acute Plan to address problem: Supplemental oxygen, chest x-ray, pulse oximetry, nebulizer therapy, proposition while in bed, noninvasive positive pressure ventilation as clinically indicated. If patient is unable to maintain pulse oximetry will consider high flow s upplemental oxygen. (2) Pneumonia Current Visit: Yes Status: Acute Plan to address problem: Pneumonia protocol: Chest x-ray, CBC, CMP, IV antibiotic therapy, blood culture. (3) Suspected 2019 novel coronavirus infection Current Visit: Yes Status: Acute Plan to address problem: Coronavirus protocol: IV antibiotic therapy, IV steroid therapy, vitamin C therapy, vitamin D therapy, zinc therapy, prone positioning while in bed, nebulizer therapy, supplemental oxygen, pulse oximetry. Prophylactic anticoagulation (4) Obesity hypoventilation syndrome Current Visit: Yes Status: Acute Plan to address problem: Balanced diet, increase physical activity discharge, outpatient pulmonary follow-up for sleep study. (5) DVT prophylaxis Current Visit: Yes Status: Acute Plan to address problem: SCD to bilateral lower extremities while in bed, prophylactic anticoagulation
[2021-04-16] MEDS: ACETAMINOPHEN 325 MG TAB PO PRN (14:01)
[2021-04-16] MEDS: AZITHROMYCIN/NS 500 MG/250 ML 500 MG/250 ML BAG IV SCH (14:06)
[2021-04-16] MEDS: methylPREDNISolone Sod Succinate 40 MG/1 ML INJ IV SCH (14:06)
[2021-04-16] MEDS: cefTRIAXone/NS 2 GM/100 ML 2 GM/100 ML BAG IV SCH ×2 (15:27→15:40)
[2021-04-17] MEDS: ASCORBIC ACID 250 MG TAB PO SCH ×3 (01:12→23:58)
[2021-04-17] MEDS: ZINC SULFATE 220 MG CAP PO SCH ×3 (01:12→23:58)
[2021-04-17] MEDS: methylPREDNISolone Sod Succinate 40 MG/1 ML INJ IV SCH ×4 (01:13→23:58)
[2021-04-17] MEDS: FAMOTIDINE 20 MG TAB PO SCH ×3 (01:14→22:41)
[2021-04-17] MEDS: HEPARIN 5,000 UNIT/1 ML VIAL SUB-Q SCH ×3 (01:18→22:42)
[2021-04-17 05:41] LABS: Hematocrit 36.6 % (30.3-42.9); Hemoglobin 12.3 gm/dl (10.1-14.3); Lymphocytes # (Auto) 0.6 K/mm3 (1.2-5.4); Lymphocytes % (Auto) 7.7 % (13.4-35.0); Mean Corpuscular HGB Conc 34 % (30-34); Mean Corpuscular Volume 88 fl (79-97); Monocytes # (Auto) 0.2 K/mm3 (0.0-0.8); Monocytes % (Auto) 2.5 % (0.0-7.3); Platelet Count 295 K/mm3 (140-440); Red Blood Count 4.15 M/mm3 (3.65-5.03)
[2021-04-17 06:18] LABS: Alanine Aminotransferase 26 units/L (7-56); Albumin 3.2 g/dL (3.9-5); Blood Urea Nitrogen 20 mg/dL (7-17); Calcium 8.7 mg/dL (8.4-10.2); Hemolysis Index 1
[2021-04-17 06:23] LABS: BUN/Creatinine Ratio 40
[2021-04-17 09:12] LABS: C-Reactive Protein 17.2 mg/dL (0.00-1.30)
[2021-04-17] MEDS: CHOLECALCIFEROL (VIT D3) 1000 UNIT (25 mcg) TAB PO SCH (11:02)
--- NOTE | 2021-04-17 13:56 | Progress Note ---
Assessment and Plan Assessment and plan: 50 YO Female with GERD, Obesity, HLD presents to ED for evaluation. Patient reports "I cannot breathe". Patient states that she has experienced subjective fever, shortness of breath, malaise, body aches, dry cough, and shortness of breath over the past 1 week with progressively worsening symptoms over the same timeframe. EMS was notified and upon arrival the patient was found to be in distress and subsequent transported to [facility] for further care and evaluation of the aforementioned symptoms. The patient was seen and evaluated in the emergency department. All lab and imaging studies reviewed. Patient found to have a pulse oximetry of 86% with exertion on room air which is consistent with acute hypoxemic respiratory failure. Patient with chest x-ray which revealed bilateral pneumonia. Patient admitted to medical floor and initiated him on pneumonia protocol as well as coronavirus protocol. Patient knowledges fever but denies chills, chest pain, palpitation, skin rash, recent ill contacts, or known exposure to COVID-19. Prior admission on 01/21/2017 reviewed. All medication listed at time of admission has been reconciled. Patient is unvaccinated for coronavirus infection. CXR: Bilateral Pneumonia 04/17: Patient seen and examined, still uncomfortable with Hypoxic respiratory failure and on oxygen, will continue to steroids therapy, start patient on Remdesivir, ID consulted, Pulmonary consult placed. (1) Acute hypoxemic respiratory failure Current Visit: Yes Status: Acute Plan to address problem: Supplemental oxygen, chest x-ray, pulse oximetry, nebulizer therapy, proposition while in bed, noninvasive positive pressure ventilation as clinically indicated. If patient is unable to maintain pulse oximetry will consider high flow supplemental oxygen. (2) Pneumonia Current Visit: Yes Status: Acute Plan to address problem: Pneumonia protocol: Chest x-ray, CBC, CMP, IV antibiotic therapy, blood culture. (3) Suspected 2019 novel coronavirus infection Current Visit: Yes Status: Acute Plan to address problem: Coronavirus protocol: IV antibiotic therapy, IV steroid therapy, vitamin C th erapy, vitamin D therapy, zinc therapy, prone positioning while in bed, nebulizer therapy, supplemental oxygen, pulse oximetry. Prophylactic anticoagulation (4) Obesity hypoventilation syndrome Current Visit: Yes Status: Acute Plan to address problem: Balanced diet, increase physical activity discharge, outpatient pulmonary follow-up for sleep study. (5) DVT prophylaxis Current Visit: Yes Status: Acute Plan to address problem: SCD to bilateral lower extremities while in bed, prophylactic anticoagulation History Interval history: Patient is seen and examined, still with shortness of breath, uncomfortable Hospitalist Physical - Physical exam Narrative exam: General appearance: Absent: mild distress, appears uncomfortable - EENT Eyes: Present: PERRL ENT: hearing intact, clear oral mucosa - Neck Neck: Present: supple, normal ROM - Respiratory Respiratory effort: normal Respiratory: bilateral: Diminished - Cardiovascular Heart Sounds: Present: S1 & S2. Absent: rub, click - Extremities Extremities: pulses symmetrical, No edema Peripheral Pulses: within normal limits - Abdominal General gastrointestinal: Present: soft, non-tender, non-distended, normal bowel sounds Female genitourinary: Present: normal - Integumentary Integumentary: Present: clear, warm, dry - Musculoskeletal Musculoskeletal: gait normal, strength equal bilaterally - Psychiatric Psychiatric: appropriate mood/affect, intact judgment & insight - Neurologic Neurologic: CNII-XII intact, moves all extremities - Constitutional Vitals: Temp Pulse Resp BP Pulse Ox 99.0 F 73 23 131/78 96 04/16/21 11:10 04/16/21 16:56 04/16/21 16:56 04/16/21 16:56 04/16/21 16:56 General appearance: Absent: no acute distress, mild distress Results - Labs CBC & Chem 7: 04/17/21 03:50 04/17/21 08:26 Labs: Laboratory Last Values WBC 7.5 K/mm3 (4.5-11.0) 04/17/21 03:50 RBC 4.15 M/mm3 (3.65-5.03) 04/17/21 03:50 Hgb 12.3 gm/dl (10.1-14.3) 04/17/21 03:50 Hct 36.6 % (30.3-42.9) 04/17/21 03:50 MCV 88 fl (79-97) 04/17/21 03:50 MCH 30 pg (28-32) 04/17/21 03:50 MCHC 34 % (30-34) 04/17/21 03:50 RDW 16.0 % (13.2-15.2) H 04/17/21 03:50 Plt Count 295 K/mm3 (140-440) 04/17/21 03:50 Lymph % (Auto) 7.7 % (13.4-35.0) L 04/17/21 03:50 [place] % (Auto) 2.5 % (0.0-7.3) 04/17/21 03:50 Eos % (Auto) 0.0 % (0.0-4.3) 04/17/21 03:50 Baso % (Auto) 0.0 % (0.0-1.8) 04/17/21 03:50 Lymph # (Auto) 0.6 K/mm3 (1.2-5.4) L 04/17/21 03:50 [place] # (Auto) 0.2 K/mm3 (0.0-0.8) 04/17/21 03:50 Eos # (Auto) 0.0 K/mm3 (0.0-0.4) 04/17/21 03:50 Baso # (Auto) 0.0 K/mm3 (0.0-0.1) 04/17/21 03:50 Seg Neutrophils % 89.8 % (40.0-70.0) H 04/17/21 03:50 Seg Neutrophils # 6.7 K/mm3 (1.8-7.7) 04/17/21 03:50 D-Dimer 262.48 ng/mlDDU (0-234) H 04/17/21 08:26 Sodium 137 mmol/L (137-145) 04/17/21 03:50 Potassium 4.4 mmol/L (3.6-5.0) 04/17/21 03:50 Chloride 101.7 mmol/L (98-107) 04/17/21 03:50 Carbon Dioxide 22 mmol/L (22-30) 04/17/21 03:50 Anion Gap 18 mmol/L 04/17/21 03:50 BUN 20 mg/dL (7-17) H 04/17/21 03:50 Creatinine 0.5 mg/dL (0.6-1.2) L 04/17/21 03:50 Estimated GFR > 60 ml/min 04/17/21 03:50 BUN/Creatinine Ratio 40 % 04/17/21 03:50 Glucose 225 mg/dL (65-100) H 04/17/21 08:26 Calcium 8.7 mg/dL (8.4-10.2) 04/17/21 03:50 Ferritin 392.0 ng/mL (10.0-200.0) H 04/17/21 08:26 Total Bilirubin 0.20 mg/dL (0.1-1.2) 04/17/21 03:50 AST 26 units/L (5-40) 04/17/21 03:50 ALT 26 units/L (7-56) 04/17/21 03:50 Alkaline Phosphatase 56 units/L (35-129) 04/17/21 03:50 Lactate Dehydrogenase 338 units/L (91-180) H 04/17/21 08:26 C-Reactive Protein 17.20 mg/dL (0.00-1.30) H 04/17/21 08:26 Total Protein 8.0 g/dL (6.3-8.2) 04/17/21 03:50 Albumin 3.2 g/dL (3.9-5) L 04/17/21 03:50 Albumin/Globulin Ratio 0.7 % 04/17/21 03:50 Procalcitonin < 0.05 ng/mL (<0.15) 04/16/21 11:42 Active Medications - Current Medications Current Medications: Generic Name Dose Route Start Last Admin Trade Name Freq PRN Reason Stop Dose Admin Acetaminophen 650 mg 04/16/21 14:00 04/16/21 14:01 Acetaminophen 325 Mg Tab PO 650 mg Q4H PRN Administration Pain MILD(1-3)/Fever >100.5/[place] Albuterol 2.5 mg 04/16/21 13:39 Albuterol 2.5 Mg/3 Ml Nebu IH Q4HRT PRN Shortness Of Breath Ascorbic Acid 250 mg 04/16/21 22:00 04/17/21 11:02 Ascorbic Acid 250 Mg Tab PO 250 mg BID TUTU Administration Cholecalciferol 1,000 unit 04/17/21 10:00 04/17/21 11:02 Cholecalciferol (Vit D3) 1000 Unit (25 Mcg) Tab PO 1,000 unit QDAY TUTU Administration Famotidine 20 mg 04/16/21 22:00 04/17/21 11:01 Famotidine 20 Mg Tab PO 20 mg BID TUTU Administration Heparin Sodium (Porcine) 5,000 unit 04/16/21 22:00 04/17/21 11:01 Heparin 5,000 Unit/1 Ml Vial SUB-Q 5,000 unit Q12HR TUTU Administration Hydromorphone HCl 0.5 mg 04/16/21 14:00 Hydromorphone 1 Mg/1 Ml Inj IV Q12H PRN Pain , Severe (7-10) Ceftriaxone Sodium 2 gm in 100 mls @ 200 mls/hr 04/16/21 16:00 04/16/21 15:40 Rocephin/Ns 2 Gm/100 Ml IV Not Given Q24H TUTU Protocol Azithromycin 500 mg in 250 mls @ 250 mls/hr 04/16/21 14:00 04/16/21 14:06 Zithromax/Ns IV 250 mls/hr Q24H TUTU Administration Protocol Methylprednisolone Sodium Succinate 40 mg 04/16/21 14:00 04/17/21 11:01 Methylprednisolone Sod Succinate 40 Mg/1 Ml Inj IV 40 mg Q8HR TUTU Administration Ondansetron HCl 4 mg 04/16/21 14:00 Ondansetron 4 Mg/2 Ml Inj IV Q8H PRN Nausea And Vomiting Oxycodone/Acetaminophen 1 tab 04/16/21 14:00 Oxycodone /Acetaminophen 5-325mg Tab PO Q12H PRN Pain, Moderate (4-6) Sodium Chloride 10 ml 04/16/21 22:00 04/17/21 11:02 Sodium Chloride 0.9% 10 Ml Flush Syringe IV 10 ml BID TUTU Administration Sodium Chloride 10 ml 04/16/21 13:39 Sodium Chloride 0.9% 10 Ml Flush Syringe IV PRN PRN LINE FLUSH Zinc Sulfate 220 mg 04/16/21 22:00 04/17/21 11:02 Zinc Sulfate 220 Mg Cap PO 220 mg BID TUTU Administration
[2021-04-17 15:38] LABS: Alanine Aminotransferase 26 units/L (7-56); Albumin 3.1 g/dL (3.9-5); BUN/Creatinine Ratio 40; Blood Urea Nitrogen 20 mg/dL (7-17); Calcium 9.1 mg/dL (8.4-10.2); Hemolysis Index 59
--- NOTE | 2021-04-17 16:19 | Consultation ---
History of Present Illness - Reason for Consult Consult date: 04/17/21 - History of Present Illness 50-year-old female past medical history obesity, GERD, hyperlipidemia brought to the hospital due to shortness of breath, fevers, malaise, typical Covid symptoms. It began approximate 1 week prior to admission and was progressively worse since onset. She is found to have saturations of 86% on presentation. Afebrile since admission with a white count 7.5. Covid positive. Normal renal function. Normal procalcitonin. Currently on ceftriaxone azithromycin with methylprednisolone and remdesivir. Imaging personally reviewed: Chest x-ray: Bilateral pneumonia Review of systems: Deferred to reduce to the risk of transmission of COVID-19 Past History Past Medical History: GERD, hyperlipidemia, other (See HPI) Past Surgical History: Other (Abdominal surgery: Liver) Social history: , lives with family. denies: smoking, alcohol abuse Family history: hypertension Medications and Allergies Allergies Allergy/AdvReac Type Severity Reaction Status Date / Time No Known Allergies Allergy Unverified 01/21/17 06:43 Home Medications Medication Instructions Recorded Confirmed Last Taken Type Famotidine [Pepcid] 20 mg PO BID #60 tablet 01/22/17 Unknown Rx HYDROcodone/APAP 5-325 [[place] 1 each PO Q6HR PRN #10 tablet 01/22/17 Unknown Rx 5/325] Omeprazole Magnesium [PriLOSEC Otc] 20 mg PO QDAY #30 tablet. 01/22/17 Unknown Rx Active Meds: Active Medications Acetaminophen (Acetaminophen 325 Mg Tab) 650 mg PO Q4H PRN PRN Reason: Pain MILD(1-3)/Fever >100.5/[place] Last Admin: 04/16/21 14:01 Dose: 650 mg Documented by: Albuterol (Albuterol 2.5 Mg/3 Ml Nebu) 2.5 mg IH Q4HRT PRN PRN Reason: Shortness Of Breath Ascorbic Acid (Ascorbic Acid 250 Mg Tab) 250 mg PO BID [facility] Last Admin: 04/17/21 11:02 Dose: 250 mg Documented by: Cholecalciferol (Cholecalciferol (Vit D3) 1000 Unit (25 Mcg) Tab) 1,000 unit PO QDAY [facility] Last Admin: 04/17/21 11:02 Dose: 1,000 unit Documented by: Famotidine (Famotidine 20 Mg Tab) 20 mg PO BID [facility] Last Admin: 04/17/21 11:01 Dose: 20 mg Documented by: Heparin Sodium (Porcine) (Heparin 5,000 Unit/1 Ml Vial) 5,000 unit SUB-Q Q12HR [facility] Last Admin: 04/17/21 11:01 Dose: 5,000 unit Documented by: Hydromorphone HCl (Hydromorphone 1 Mg/1 Ml Inj) 0.5 mg IV Q12H PRN PRN Reason: Pain , Severe (7-10) Ceftriaxone Sodium (Rocephin/Ns 2 Gm/100 Ml) 2 gm in 100 mls @ 200 mls/hr IV Q24H [facility]; Protocol Last Admin: 04/16/21 15:40 Dose: Not Given Documented by: Azithromycin (Zithromax/Ns) 500 mg in 250 mls @ 250 mls/hr IV Q24H [facility]; Protocol Last Admin: 04/16/21 14:06 Dose: 250 mls/hr Documented by: REMDESIVIR 200 mg/ Sodium (Chloride) 250 mls @ 500 mls/hr IV ONCE ONE Stop: 04/17/21 17:29 REMDESIVIR 100 mg/ Sodium (Chloride) 250 mls @ 500 mls/hr IV Q24HR@2100 [facility]U Stop: 04/21/21 21:29 Methylprednisolone Sodium Succinate (Methylprednisolone Sod Succinate 40 Mg/1 Ml Inj) 40 mg IV Q8HR [facility] Last Admin: 04/17/21 11:01 Dose: 40 mg Documented by: Ondansetron HCl (Ondansetron 4 Mg/2 Ml Inj) 4 mg IV Q8H PRN PRN Reason: Nausea And Vomiting Oxycodone/Acetaminophen (Oxycodone /Acetaminophen 5-325mg Tab) 1 tab PO Q12H PRN PRN Reason: Pain, Moderate (4-6) Sodium Chloride (Sodium Chloride 0.9% 10 Ml Flush Syringe) 10 ml IV BID [facility] Last Admin: 04/17/21 11:02 Dose: 10 ml Documented by: Sodium Chloride (Sodium Chloride 0.9% 10 Ml Flush Syringe) 10 ml IV PRN PRN PRN Reason: LINE FLUSH Sodium Chloride (Sodium Chloride 0.9% 50 Ml Ivpb) 50 ml IV Q24HR@2100 [facility]U Stop: 04/21/21 21:01 Zinc Sulfate (Zinc Sulfate 220 Mg Cap) 220 mg PO BID [facility] Last Admin: 04/17/21 11:02 Dose: 220 mg Documented by: Physical Examination - Physical Exam Narrative exam: Physical exam deferred to reduce risk of transmission of COVID-19. Please refer to primary team's note. - Constitutional Vitals: Vital Signs Temp Pulse Resp BP Pulse Ox 99.0 F 73 23 131/78 96 04/16/21 11:10 04/16/21 16:56 04/16/21 16:56 04/16/21 16:56 04/16/21 16:56 Results - Labs CBC & Chem 7: 04/17/21 03:50 04/17/21 15:04 Labs: Abnormal lab results 04/17/21 04/17/21 04/17/21 Range/Units 03:50 03:50 08:26 RDW 16.0 H (13.2-15.2) % Lymph % (Auto) 7.7 L (13.4-35.0) % Lymph # (Auto) 0.6 L (1.2-5.4) K/mm3 Seg Neutrophils % 89.8 H (40.0-70.0) % D-Dimer 262.48 H (0-234) ng/mlDDU BUN 20 H (7-17) mg/dL Creatinine 0.5 L (0.6-1.2) mg/dL Glucose 249 H (65-100) mg/dL Ferritin (10.0-200.0) ng/mL Lactate Dehydrogenase (91-180) units/L C-Reactive Protein (0.00-1.30) mg/dL Total Protein (6.3-8.2) g/dL Albumin 3.2 L (3.9-5) g/dL Coronavirus (PCR) (Negative) 04/17/21 04/17/21 04/17/21 Range/Units 08:26 08:26 15:04 RDW (13.2-15.2) % Lymph % (Auto) (13.4-35.0) % Lymph # (Auto) (1.2-5.4) K/mm3 Seg Neutrophils % (40.0-70.0) % D-Dimer (0-234) ng/mlDDU BUN 20 H (7-17) mg/dL Creatinine 0.5 L (0.6-1.2) mg/dL Glucose 225 H 246 H (65-100) mg/dL Ferritin 392.0 H (10.0-200.0) ng/mL Lactate Dehydrogenase 338 H (91-180) units/L C-Reactive Protein 17.20 H (0.00-1.30) mg/dL Total Protein 8.3 H (6.3-8.2) g/dL Albumin 3.1 L (3.9-5) g/dL Coronavirus (PCR) (Negative) 04/17/21 Range/Units Unknown RDW (13.2-15.2) % Lymph % (Auto) (13.4-35.0) % Lymph # (Auto) (1.2-5.4) K/mm3 Seg Neutrophils % (40.0-70.0) % D-Dimer (0-234) ng/mlDDU BUN (7-17) mg/dL Creatinine (0.6-1.2) mg/dL Glucose (65-100) mg/dL Ferritin (10.0-200.0) ng/mL Lactate Dehydrogenase (91-180) units/L C-Reactive Protein (0.00-1.30) mg/dL Total Protein (6.3-8.2) g/dL Albumin (3.9-5) g/dL Coronavirus (PCR) Positive A (Negative) Assessment and Plan Cultures: Blood culture no growth so far Covid PCR: Pending A/P: 50-year-old female past medical history obesity, GERD, hyperlipidemia presents with COVID-19 pneumonia #Severe COVID-19 pneumonia: Patient presented with a week of symptoms, chest x- ray with diffuse bilateral infiltrates, admission O2 sats on room air. Inflammatory markers elevated #Acute hypoxemic respiratory failure: Likely secondary to COVID-19 infection. Currently on nasal cannula #Obesity Recs: -Methylprednisolone, steroids per primary. Complete 10 days. -Remdesivir 200 mg IV q day x 1 followed by 100 mg IV q day x 4 days -Obtain q48-72h inflammatory markers - ferritin, Ddimer, CRP, LDH -Stopped antibiotics due to normal procalcitonin -Anticoagulation per hospital protocol -Proning as able Thank you for the consult, we will continue to follow. MD Meera [facility] O: [phone] F: [phone]
[2021-04-17] MEDS: AZITHROMYCIN/NS 500 MG/250 ML 500 MG/250 ML BAG IV SCH (16:34)
[2021-04-17] MEDS: oxyCODONE /ACETAMINOPHEN 5-325MG TAB PO PRN (16:55)
[2021-04-17] MEDS ORDERED: REMDESIVIR 200 MG in SODIUM CHLORIDE 0.9% 250ML 250 ML IV ONE (17:00)
[2021-04-17] MEDS: cefTRIAXone/NS 2 GM/100 ML 2 GM/100 ML BAG IV SCH (17:43)
[2021-04-18 06:23] LABS: Hematocrit 35.9 % (30.3-42.9); Hemoglobin 11.9 gm/dl (10.1-14.3); Mean Corpuscular HGB Conc 33 % (30-34); Mean Corpuscular Volume 89 fl (79-97); Platelet Count 313 K/mm3 (140-440); Red Blood Count 4.02 M/mm3 (3.65-5.03); Red Cell Distribution Width 16.1 % (13.2-15.2)
[2021-04-18 06:49] LABS: Alanine Aminotransferase 25 units/L (7-56); Albumin 3.3 g/dL (3.9-5); Blood Urea Nitrogen 22 mg/dL (7-17); Calcium 9.1 mg/dL (8.4-10.2); Hemolysis Index 11
[2021-04-18 06:57] LABS: BUN/Creatinine Ratio 44
[2021-04-18] MEDS ORDERED: DEXTROSE 50% IN WATER (25GM) 50 ML SYRINGE IV PRN (07:30)
--- NOTE | 2021-04-18 10:58 | Consultation ---
History of Present Illness Consult date: 04/18/21 Requesting physician: JOSE CERVANTES History of present illness: 50 YO Female with GERD, Obesity, HLD presents to ED for evaluation. Patient reports "I cannot breathe". Patient states that she has experienced subjective fever, shortness of breath, malaise, body aches, dry cough, and shortness of breath over the past 1 week with progressively worsening symptoms over the same timeframe. EMS was notified and upon arrival the patient was found to be in distress and subsequent transported to [facility] for further care and evaluation of the aforementioned symptoms. The patient was seen and evaluated in the emergency department. All lab and imaging studies reviewed. Patient found to have a pulse oximetry of 86% with exertion on room air which is consistent with acute hypoxemic respiratory failure. Patient with chest x-ray which revealed bilateral pneumonia. Patient admitted to medical floor and initiated him on pneumonia protocol as well as coronavirus protocol. Patient knowledges fever but denies chills, chest pain, palpitation, skin rash, recent ill contacts, or known exposure to COVID-19. Prior admission on 01/21/2017 reviewed. All medication listed at time of admission has been reconciled. Patient is unvaccinated for coronavirus infection. Past History Past Medical History: GERD, hyperlipidemia, other (See HPI) Past Surgical History: Other (Abdominal surgery: Liver) Social history: , lives with family. denies: smoking, alcohol abuse Family history: hypertension Medications and Allergies Allergies Allergy/AdvReac Type Severity Reaction Status Date / Time No Known Allergies Allergy Unverified 01/21/17 06:43 Home Medications Medication Instructions Recorded Confirmed Last Taken Type Famotidine [Pepcid] 20 mg PO BID #60 tablet 01/22/17 Unknown Rx HYDROcodone/APAP 5-325 [[place] 1 each PO Q6HR PRN #10 tablet 01/22/17 Unknown Rx 5/325] Omeprazole Magnesium [PriLOSEC Otc] 20 mg PO QDAY #30 tablet. 01/22/17 Unknown Rx Active Meds: Active Medications Acetaminophen (Acetaminophen 325 Mg Tab) 650 mg PO Q4H PRN PRN Reason: Pain MILD(1-3)/Fever >100.5/[place] Last Admin: 04/16/21 14:01 Dose: 650 mg Documented by: Albuterol (Albuterol 2.5 Mg/3 Ml Nebu) 2.5 mg IH Q4HRT PRN PRN Reason: Shortness Of Breath Ascorbic Acid (Ascorbic Acid 250 Mg Tab) 250 mg PO BID [facility] Last Admin: 04/17/21 23:58 Dose: 250 mg Documented by: Cholecalciferol (Cholecalciferol (Vit D3) 1000 Unit (25 Mcg) Tab) 1,000 unit PO QDAY [facility] Last Admin: 04/17/21 11:02 Dose: 1,000 unit Documented by: Dexamethasone (Dexamethasone 4 Mg/Ml Vial) 8 mg IV DAILY [facility] Dextrose (Dextrose 50% In Water (25gm) 50 Ml Syringe) 50 ml IV Q30MIN PRN; Protocol PRN Reason: Hypoglycemia Famotidine (Famotidine 20 Mg Tab) 20 mg PO BID [facility] Last Admin: 04/17/21 22:41 Dose: 20 mg Documented by: Heparin Sodium (Porcine) (Heparin 5,000 Unit/1 Ml Vial) 5,000 unit SUB-Q Q12HR [facility] Last Admin: 04/17/21 22:42 Dose: 5,000 unit Documented by: Hydromorphone HCl (Hydromorphone 1 Mg/1 Ml Inj) 0.5 mg IV Q12H PRN PRN Reason: Pain , Severe (7-10) Ceftriaxone Sodium (Rocephin/Ns 2 Gm/100 Ml) 2 gm in 100 mls @ 200 mls/hr IV Q24H [facility]; Protocol Last Admin: 04/17/21 17:43 Dose: 200 mls/hr Documented by: Azithromycin (Zithromax/Ns) 500 mg in 250 mls @ 250 mls/hr IV Q24H [facility]; Protocol Last Admin: 04/17/21 16:34 Dose: 250 mls/hr Documented by: REMDESIVIR 100 mg/ Sodium (Chloride) 250 mls @ 500 mls/hr IV Q24HR@2100 TUTU Stop: 04/21/21 21:29 Insulin Human Lispro (Insulin Lispro 100 Unit/Ml) 0 unit SUB-Q ACHS [facility]; Protocol Ondansetron HCl (Ondansetron 4 Mg/2 Ml Inj) 4 mg IV Q8H PRN PRN Reason: Nausea And Vomiting Oxycodone/Acetaminophen (Oxycodone /Acetaminophen 5-325mg Tab) 1 tab PO Q12H PRN PRN Reason: Pain, Moderate (4-6) Last Admin: 04/17/21 16:55 Dose: 1 tab Documented by: Sodium Chloride (Sodium Chloride 0.9% 10 Ml Flush Syringe) 10 ml IV BID [facility] Last Admin: 04/17/21 22:35 Dose: 10 ml Documented by: Sodium Chloride (Sodium Chloride 0.9% 10 Ml Flush Syringe) 10 ml IV PRN PRN PRN Reason: LINE FLUSH Sodium Chloride (Sodium Chloride 0.9% 50 Ml Ivpb) 50 ml IV Q24HR@2100 [facility] Stop: 04/21/21 21:01 Zinc Sulfate (Zinc Sulfate 220 Mg Cap) 220 mg PO BID [facility] Last Admin: 04/17/21 23:58 Dose: 220 mg Documented by: Review of Systems All systems: negative Physical Examination Vital signs: Vital Signs Temp Pulse Resp BP Pulse Ox 99.0 F 84 24 149/86 96 04/16/21 11:10 04/16/21 11:10 04/16/21 11:10 04/16/21 11:10 04/16/21 11:10 General appearance: no acute distress, other Eyes: non-icteric Ascultation: Bilateral: diminished breath sounds Results - Laboratory Findings CBC and BMP: 04/19/21 04:19 04/19/21 04:19 PT/INR, D-dimer D-Dimer 262.48 ng/mlDDU (0-234) H 04/17/21 08:26 Abnormal lab findings: Abnormal Labs 04/16/21 04/16/21 04/16/21 11:42 11:42 11:42 WBC RDW 16.1 H Lymph % (Auto) 7.8 L Lymph # (Auto) 0.8 L Seg Neutrophils % 87.7 H Seg Neutrophils # 8.5 H D-Dimer 338.70 H Potassium BUN Creatinine Glucose 194 H Hemoglobin A1c Ferritin Lactate Dehydrogenase C-Reactive Protein Total Protein 8.4 H Albumin 3.8 L Coronavirus (PCR) 04/16/21 04/16/21 04/17/21 11:42 11:42 03:50 WBC RDW 16.0 H Lymph % (Auto) 7.7 L Lymph # (Auto) 0.6 L Seg Neutrophils % 89.8 H Seg Neutrophils # D-Dimer Potassium BUN Creatinine Glucose 195 H Hemoglobin A1c Ferritin 254.3 H Lactate Dehydrogenase 359 H C-Reactive Protein 15.20 H Total Protein Albumin Coronavirus (PCR) 04/17/21 04/17/21 04/17/21 03:50 08:26 08:26 WBC RDW Lymph % (Auto) Lymph # (Auto) Seg Neutrophils % Seg Neutrophils # D-Dimer 262.48 H Potassium BUN 20 H Creatinine 0.5 L Glucose 249 H 225 H Hemoglobin A1c Ferritin Lactate Dehydrogenase 338 H C-Reactive Protein 17.20 H Total Protein Albumin 3.2 L Coronavirus (PCR) 04/17/21 04/17/21 04/17/21 08:26 15:04 Unknown WBC RDW Lymph % (Auto) Lymph # (Auto) Seg Neutrophils % Seg Neutrophils # D-Dimer Potassium BUN 20 H Creatinine 0.5 L Glucose 246 H Hemoglobin A1c Ferritin 392.0 H Lactate Dehydrogenase C-Reactive Protein Total Protein 8.3 H Albumin 3.1 L Coronavirus (PCR) Positive A 04/18/21 04/18/21 04/18/21 05:06 05:06 07:36 WBC 11.6 H RDW 16.1 H Lymph % (Auto) Lymph # (Auto) Seg Neutrophils % Seg Neutrophils # D-Dimer Potassium 5.2 H BUN 22 H Creatinine 0.5 L Glucose 315 H Hemoglobin A1c 8.5 H Ferritin Lactate Dehydrogenase C-Reactive Protein Total Protein Albumin 3.3 L Coronavirus (PCR) - Diagnostic Findings Chest x-ray: image reviewed Assessment and Plan 50 y/o female with acute respiratory failure secondary to COVID19 pneumonia. 1. Daily net negative state 2. Prone if possible 3. IV remdesivir. 4. Should be a candidate for Actemra 5. IV steroids 6. Guarded Prognosis
[2021-04-18] MEDS: SODIUM CHLORIDE 0.9% 50 ML IVPB IV SCH (11:12)
[2021-04-18] MEDS ORDERED: methylPREDNISolone Sod Succinate 125 MG/2 ML INJ ONE (11:26)
[2021-04-18] MEDS: HEPARIN 5,000 UNIT/1 ML VIAL SUB-Q SCH ×2 (11:52→23:39)
[2021-04-18] MEDS: dexAMETHasone 4 MG/ML VIAL IV SCH (11:52)
[2021-04-18] MEDS: ZINC SULFATE 220 MG CAP PO SCH ×2 (11:53→23:26)
[2021-04-18] MEDS: FAMOTIDINE 20 MG TAB PO SCH ×2 (11:53→23:25)
[2021-04-18] MEDS: INSULIN LISPRO 100 UNIT/ML SUB-Q SCH ×4 (11:55→23:30)
[2021-04-18] MEDS: CHOLECALCIFEROL (VIT D3) 1000 UNIT (25 mcg) TAB PO SCH (12:15)
[2021-04-18] MEDS: ACETAMINOPHEN 325 MG TAB PO PRN (12:15)
[2021-04-18] MEDS: ASCORBIC ACID 250 MG TAB PO SCH ×2 (12:15→23:26)
[2021-04-18] MEDS: methylPREDNISolone Sod Succinate 40 MG/1 ML INJ IV SCH (12:21)
[2021-04-18] MEDS ORDERED: FUROSEMIDE 40 MG/4 ML INJ IV ONE (13:05)
--- NOTE | 2021-04-18 13:05 | Progress Note ---
Assessment and Plan Assessment and plan: 50 YO Female with GERD, Obesity, HLD presents to ED for evaluation. Patient reports "I cannot breathe". Patient states that she has experienced subjective fever, shortness of breath, malaise, body aches, dry cough, and shortness of breath over the past 1 week with progressively worsening symptoms over the same timeframe. EMS was notified and upon arrival the patient was found to be in distress and subsequent transported to [facility] for further care and evaluation of the aforementioned symptoms. The patient was seen and evaluated in the emergency department. All lab and imaging studies reviewed. Patient found to have a pulse oximetry of 86% with exertion on room air which is consistent with acute hypoxemic respiratory failure. Patient with chest x-ray which revealed bilateral pneumonia. Patient admitted to medical floor and initiated him on pneumonia protocol as well as coronavirus protocol. Patient knowledges fever but denies chills, chest pain, palpitation, skin rash, recent ill contacts, or known exposure to COVID-19. Prior admission on 01/21/2017 reviewed. All medication listed at time of admission has been reconciled. Patient is unvaccinated for coronavirus infection. CXR: Bilateral Pneumonia 04/17: Patient seen and examined, still uncomfortable with Hypoxic respiratory failure and on oxygen, will continue to steroids therapy, start patient on Remdesivir, ID consulted, Pulmonary consult placed. 04/18: Patient seen and examined, she is currently being changed to High flow NC due to worsening HYPOXIA, will transfer to IMCU, Pulmonary and ID following. Will also give a dose of Lasix today. Monitor Inflammatory markers. (1) Acute hypoxemic respiratory failure Current Visit: Yes Status: Acute Plan to address problem: Supplemental oxygen, chest x-ray, pulse oximetry, nebulizer therapy, proposition while in bed, noninvasive positive pressure ventilation as clinically indicated. If patient is unable to maintain pulse oximetry will consider high flow supplemental oxygen. (2) Pneumonia Current Visit: Yes Status: Acute Plan to address problem: Pneumonia protocol: Chest x-ray, CBC, CMP, IV antibiotic therapy, blood culture. (3) Suspected 2019 novel coronavirus infection Current Visit: Yes Status: Acute Plan to address problem: Coronavirus protocol: IV antibiotic therapy, IV steroid therapy, vitamin C therapy, vitamin D therapy, zinc therapy, prone positioning while in bed, ne bulizer therapy, supplemental oxygen, pulse oximetry. Prophylactic anticoagulation (4) Obesity hypoventilation syndrome Current Visit: Yes Status: Acute Plan to address problem: Balanced diet, increase physical activity discharge, outpatient pulmonary follow-up for sleep study. (5) DVT prophylaxis Current Visit: Yes Status: Acute Plan to address problem: SCD to bilateral lower extremities while in bed, prophylactic anticoagulation The high probability of a clinically significant, sudden or life threatening deterioration of the [Pulmonary] system(s) required my full and direct attention, intervention and personal management. The aggregate critical care time was [35] minutes. This time is in addition to time spent performing reported procedures but includes the following: [x] Data Review and interpretation [x] Patient assessment and monitoring of vital signs [x] Documentation [x] Medication orders and management History Interval history: Patient is seen and examined, still with shortness of breath, uncomfortable Hospitalist Physical - Physical exam Narrative exam: General appearance: Absent: mild distress, appears uncomfortable - EENT Eyes: Present: PERRL ENT: hearing intact, clear oral mucosa - Neck Neck: Present: supple, normal ROM - Respiratory Respiratory effort: normal Respiratory: bilateral: Diminished - Cardiovascular Heart Sounds: Present: S1 & S2. Absent: rub, click - Extremities Extremities: pulses symmetrical, No edema Peripheral Pulses: within normal limits - Abdominal General gastrointestinal: Present: soft, non-tender, non-distended, normal bowel sounds Female genitourinary: Present: normal - Integumentary Integumentary: Present: clear, warm, dry - Musculoskeletal Musculoskeletal: gait normal, strength equal bilaterally - Psychiatric Psychiatric: appropriate mood/affect, intact judgment & insight - Neurologic Neurologic: CNII-XII intact, moves all extremities - Constitutional Vitals: Temp Pulse Resp BP Pulse Ox 98.0 F 80 18 138/78 92 04/18/21 12:35 04/18/21 12:35 04/18/21 12:35 04/18/21 12:35 04/18/21 12:35 General appearance: Absent: no acute distress, mild distress Results - Labs CBC & Chem 7: 04/18/21 05:06 04/18/21 05:06 Labs: Laboratory Last Values WBC 11.6 K/mm3 (4.5-11.0) H 04/18/21 05:06 RBC 4.02 M/mm3 (3.65-5.03) 04/18/21 05:06 Hgb 11.9 gm/dl (10.1-14.3) 04/18/21 05:06 Hct 35.9 % (30.3-42.9) 04/18/21 05:06 MCV 89 fl (79-97) 04/18/21 05:06 MCH 30 pg (28-32) 04/18/21 05:06 MCHC 33 % (30-34) 04/18/21 05:06 RDW 16.1 % (13.2-15.2) H 04/18/21 05:06 Plt Count 313 K/mm3 (140-440) 04/18/21 05:06 Lymph % (Auto) 7.7 % (13.4-35.0) L 04/17/21 03:50 [place] % (Auto) 2.5 % (0.0-7.3) 04/17/21 03:50 Eos % (Auto) 0.0 % (0.0-4.3) 04/17/21 03:50 Baso % (Auto) 0.0 % (0.0-1.8) 04/17/21 03:50 Lymph # (Auto) 0.6 K/mm3 (1.2-5.4) L 04/17/21 03:50 [place] # (Auto) 0.2 K/mm3 (0.0-0.8) 04/17/21 03:50 Eos # (Auto) 0.0 K/mm3 (0.0-0.4) 04/17/21 03:50 Baso # (Auto) 0.0 K/mm3 (0.0-0.1) 04/17/21 03:50 Seg Neutrophils % 89.8 % (40.0-70.0) H 04/17/21 03:50 Seg Neutrophils # 6.7 K/mm3 (1.8-7.7) 04/17/21 03:50 D-Dimer 262.48 ng/mlDDU (0-234) H 04/17/21 08:26 Sodium 139 mmol/L (137-145) 04/18/21 05:06 Potassium 5.2 mmol/L (3.6-5.0) H 04/18/21 05:06 Chloride 100.5 mmol/L (98-107) 04/18/21 05:06 Carbon Dioxide 24 mmol/L (22-30) 04/18/21 05:06 Anion Gap 20 mmol/L 04/18/21 05:06 BUN 22 mg/dL (7-17) H 04/18/21 05:06 Creatinine 0.5 mg/dL (0.6-1.2) L 04/18/21 05:06 Estimated GFR > 60 ml/min 04/18/21 05:06 BUN/Creatinine Ratio 44 % 04/18/21 05:06 Glucose 315 mg/dL (65-100) H 04/18/21 05:06 POC Glucose 284 mg/dL (70-105) H 04/18/21 11:59 Hemoglobin A1c 8.5 % (4-6) H 04/18/21 07:36 Calcium 9.1 mg/dL (8.4-10.2) 04/18/21 05:06 Ferritin 392.0 ng/mL (10.0-200.0) H 04/17/21 08:26 Total Bilirubin 0.20 mg/dL (0.1-1.2) 04/18/21 05:06 AST 28 units/L (5-40) 04/18/21 05:06 ALT 25 units/L (7-56) 04/18/21 05:06 Alkaline Phosphatase 55 units/L (35-129) 04/18/21 05:06 Lactate Dehydrogenase 338 units/L (91-180) H 04/17/21 08:26 C-Reactive Protein 17.20 mg/dL (0.00-1.30) H 04/17/21 08:26 Total Protein 6.6 g/dL (6.3-8.2) D 04/18/21 05:06 Albumin 3.3 g/dL (3.9-5) L 04/18/21 05:06 Albumin/Globulin Ratio 1.0 % 04/18/21 05:06 Procalcitonin < 0.05 ng/mL (<0.15) 04/17/21 08:26 Coronavirus (PCR) Positive (Negative) A 04/17/21 Unknown Active Medications - Current Medications Current Medications: Generic Name Dose Route Start Last Admin Trade Name Freq PRN Reason Stop Dose Admin Acetaminophen 650 mg 04/16/21 14:00 04/18/21 12:15 Acetaminophen 325 Mg Tab PO 650 mg Q4H PRN Administration Pain MILD(1-3)/Fever >100.5/[place] Albuterol 2.5 mg 04/16/21 13:39 Albuterol 2.5 Mg/3 Ml Nebu IH Q4HRT PRN Shortness Of Breath Ascorbic Acid 250 mg 04/16/21 22:00 04/18/21 12:15 Ascorbic Acid 250 Mg Tab PO 250 mg BID TUTU Administration Cholecalciferol 1,000 unit 04/17/21 10:00 04/18/21 12:15 Cholecalciferol (Vit D3) 1000 Unit (25 Mcg) Tab PO 1,000 unit QDAY TUTU Administration Dexamethasone 8 mg 04/18/21 10:00 04/18/21 11:52 Dexamethasone 4 Mg/Ml Vial IV 04/27/21 10:01 8 mg DAILY TUTU Administration Dextrose 50 ml 04/18/21 07:30 Dextrose 50% In Water (25gm) 50 Ml Syringe IV Q30MIN PRN Hypoglycemia Protocol Famotidine 20 mg 04/16/21 22:00 04/18/21 11:53 Famotidine 20 Mg Tab PO 20 mg BID TUTU Administration Heparin Sodium (Porcine) 5,000 unit 04/16/21 22:00 04/18/21 11:52 Heparin 5,000 Unit/1 Ml Vial SUB-Q 5,000 unit Q12HR TUTU Administration Hydromorphone HCl 0.5 mg 04/16/21 14:00 Hydromorphone 1 Mg/1 Ml Inj IV Q12H PRN Pain , Severe (7-10) REMDESIVIR 100 mg/ Sodium 250 mls @ 500 mls/hr 04/18/21 21:00 Chloride IV 04/21/21 21:29 Q24HR@2100 [facility] Insulin Human Lispro 0 unit 04/18/21 08:00 04/18/21 12:17 Insulin Lispro 100 Unit/Ml SUB-Q 6 unit ACHS [facility] Administration Protocol Ondansetron HCl 4 mg 04/16/21 14:00 Ondansetron 4 Mg/2 Ml Inj IV Q8H PRN Nausea And Vomiting Oxycodone/Acetaminophen 1 tab 04/16/21 14:00 04/17/21 16:55 Oxycodone /Acetaminophen 5-325mg Tab PO 1 tab Q12H PRN Administration Pain, Moderate (4-6) Sodium Chloride 10 ml 04/16/21 22:00 04/18/21 11:53 Sodium Chloride 0.9% 10 Ml Flush Syringe IV 10 ml BID TUTU Administration Sodium Chloride 10 ml 04/16/21 13:39 Sodium Chloride 0.9% 10 Ml Flush Syringe IV PRN PRN LINE FLUSH Sodium Chloride 50 ml 04/17/21 17:00 04/18/21 11:12 Sodium Chloride 0.9% 50 Ml Ivpb IV 04/21/21 21:01 Not Given Q24HR@2100 TUTU Zinc Sulfate 220 mg 04/16/21 22:00 04/18/21 11:53 Zinc Sulfate 220 Mg Cap PO 220 mg BID TUTU Administration
--- NOTE | 2021-04-18 13:30 | Progress Note ---
Assessment and Plan Cultures: Blood culture no growth so far Covid PCR: Pending A/P: 50-year-old female past medical history obesity, GERD, hyperlipidemia pre sents with COVID-19 pneumonia #Severe COVID-19 pneumonia: Patient presented with a week of symptoms, chest x- ray with diffuse bilateral infiltrates, admission O2 sats on room air. Inflammatory markers elevated #Acute hypoxemic respiratory failure: Likely secondary to COVID-19 infection. Currently on high flow nasal cannula #Obesity Recs: -Methylprednisolone, steroids per primary. Complete 10 days. -Remdesivir 200 mg IV q day x 1 followed by 100 mg IV q day x 4 days -Obtain q48-72h inflammatory markers - ferritin, Ddimer, CRP, LDH -Ordered Actemra once given high flow nasal cannula and elevated CRP -Anticoagulation per hospital protocol -Proning as able Thank you for the consult, we will continue to follow. Nina Winkler MD [facility] ([facility]) O: [phone] F: [phone] Subjective Date of service: 04/18/21 Interval history: Afebrile, white count 11.6. Now in IMCU hold. On high flow nasal cannula. Objective - Exam Narrative Exam: Physical exam deferred to reduce risk of transmission of COVID-19. Please refer to primary team's note. - Constitutional Vitals: Vital Signs Temp Pulse Resp BP Pulse Ox 98.0 F 80 18 138/78 92 04/18/21 12:35 04/18/21 12:35 04/18/21 12:35 04/18/21 12:35 04/18/21 12:35 Temperature -Last 24 Hours Temperature 98.0 F - Labs CBC & Chem 7: 04/18/21 05:06 04/18/21 05:06 Labs: Abnormal lab results 04/17/21 04/17/21 04/18/21 Range/Units 15:04 Unknown 05:06 WBC (4.5-11.0) K/mm3 RDW (13.2-15.2) % Potassium 5.2 H (3.6-5.0) mmol/L BUN 20 H 22 H (7-17) mg/dL Creatinine 0.5 L 0.5 L (0.6-1.2) mg/dL Glucose 246 H 315 H (65-100) mg/dL POC Glucose (70-105) mg/dL Hemoglobin A1c (4-6) % Total Protein 8.3 H (6.3-8.2) g/dL Albumin 3.1 L 3.3 L (3.9-5) g/dL Coronavirus (PCR) Positive A (Negative) 04/18/21 04/18/21 04/18/21 Range/Units 05:06 07:36 11:59 WBC 11.6 H (4.5-11.0) K/mm3 RDW 16.1 H (13.2-15.2) % Potassium (3.6-5.0) mmol/L BUN (7-17) mg/dL Creatinine (0.6-1.2) mg/dL Glucose (65-100) mg/dL POC Glucose 284 H (70-105) mg/dL Hemoglobin A1c 8.5 H (4-6) % Total Protein (6.3-8.2) g/dL Albumin (3.9-5) g/dL Coronavirus (PCR) (Negative)
[2021-04-18] MEDS ORDERED: TOCILIZUMAB 600 MG in SODIUM CHLORIDE 0.9% 100 ML IV ONE (14:30)
[2021-04-18] MEDS ORDERED: LORazepam 2 MG/ML VIAL IV ONE (21:20)
[2021-04-18] MEDS: REMDESIVIR 100 MG in SODIUM CHLORIDE 0.9% 250ML 250 ML IV SCH (21:31)
[2021-04-19] MEDS: SODIUM CHLORIDE 0.9% 50 ML IVPB IV SCH (00:34)
[2021-04-19 05:15] LABS: Alanine Aminotransferase 21 units/L (7-56); Albumin 3.1 g/dL (3.9-5); Blood Urea Nitrogen 27 mg/dL (7-17); Calcium 9.1 mg/dL (8.4-10.2); Hemolysis Index 0
[2021-04-19 05:31] LABS: BUN/Creatinine Ratio 68
[2021-04-19 05:43] LABS: Hematocrit 36.2 % (30.3-42.9); Hemoglobin 12.3 gm/dl (10.1-14.3); Mean Corpuscular HGB Conc 34 % (30-34); Mean Corpuscular Volume 88 fl (79-97); Platelet Count 320 K/mm3 (140-440); Red Blood Count 4.11 M/mm3 (3.65-5.03); Red Cell Distribution Width 15.7 % (13.2-15.2)
[2021-04-19] MEDS: INSULIN LISPRO 100 UNIT/ML SUB-Q SCH ×4 (08:12→22:35)
[2021-04-19] MEDS ORDERED: ASCORBIC ACID 250 MG TAB PO SCH (10:00)
--- NOTE | 2021-04-19 10:11 | Progress Note ---
Assessment and Plan Cultures: Blood culture no growth so far Covid PCR: Pending A/P: 50-year-old female past medical history obesity, GERD, hyperlipidemia pre sents with COVID-19 pneumonia #Severe COVID-19 pneumonia: Patient presented with a week of symptoms, chest x- ray with diffuse bilateral infiltrates, admission O2 sats on room air. Inflammatory markers elevated #Acute hypoxemic respiratory failure: Likely secondary to COVID-19 infection. Currently on high flow nasal cannula #Obesity Recs: -Methylprednisolone, steroids per primary. Complete 10 days. -Remdesivir 200 mg IV q day x 1 followed by 100 mg IV q day x 4 days -Obtain q48-72h inflammatory markers - ferritin, Ddimer, CRP, LDH -s/p Actemra once -Anticoagulation per hospital protocol -Proning as able Thank you for the consult, we will continue to follow. Nina Winkler MD [facility] ([facility]) O: [phone] F: [phone] Subjective Date of service: 04/19/21 Interval history: Afebrile, normal white count. On high flow nasal cannula. Objective - Exam Narrative Exam: Physical exam deferred to reduce risk of transmission of COVID-19. Please refer to primary team's note. - Constitutional Vitals: Vital Signs Temp Pulse Resp BP Pulse Ox 98.0 F 64 32 H 119/69 94 04/18/21 12:35 04/19/21 08:31 04/19/21 08:31 04/19/21 08:31 04/19/21 08:55 Temperature -Last 24 Hours Temperature 98.0 F - Labs CBC & Chem 7: 04/19/21 04:19 04/19/21 04:19 Labs: Abnormal lab results 04/18/21 04/18/21 04/18/21 Range/Units 11:59 16:43 23:24 RDW (13.2-15.2) % BUN (7-17) mg/dL Creatinine (0.6-1.2) mg/dL Glucose (65-100) mg/dL POC Glucose 284 H 273 H 290 H (70-105) mg/dL Albumin (3.9-5) g/dL 04/19/21 04/19/21 04/19/21 Range/Units 04:19 04:19 08:10 RDW 15.7 H (13.2-15.2) % BUN 27 H (7-17) mg/dL Creatinine 0.4 L (0.6-1.2) mg/dL Glucose 184 H (65-100) mg/dL POC Glucose 194 H (70-105) mg/dL Albumin 3.1 L (3.9-5) g/dL
[2021-04-19] MEDS: dexAMETHasone 4 MG/ML VIAL IV SCH (10:36)
[2021-04-19] MEDS: FAMOTIDINE 20 MG TAB PO SCH ×2 (10:36→22:34)
[2021-04-19] MEDS: HEPARIN 5,000 UNIT/1 ML VIAL SUB-Q SCH ×2 (10:36→22:35)
[2021-04-19] MEDS: CHOLECALCIFEROL (VIT D3) 1000 UNIT (25 mcg) TAB PO SCH (10:37)
[2021-04-19] MEDS ORDERED: FUROSEMIDE 20 MG/2 ML INJ IV NR (10:37)
[2021-04-19] MEDS: ASCORBIC ACID 250 MG TAB PO SCH (10:37)
[2021-04-19] MEDS: oxyCODONE /ACETAMINOPHEN 5-325MG TAB PO PRN ×2 (10:38→22:34)
[2021-04-19] MEDS: ZINC SULFATE 220 MG CAP PO SCH ×2 (10:38→22:34)
--- NOTE | 2021-04-19 10:40 | Progress Note ---
Assessment and Plan 50 y/o female with acute respiratory failure secondary to COVID19 pneumonia. 04/19/21: Prone as tolerated during the day and sleep prone at night. Continue IV remdesivir and steroids. Did get actemra. Guarded prognosis. 1. Daily net negative state 2. Prone if possible 3. IV remdesivir. 4. Should be a candidate for Actemra 5. IV steroids 6. Guarded Prognosis Subjective Date of service: 04/19/21 Interval history: REmains in ED awaiting step down bed. Still on HFNC at 35 and 100 Objective Vital Signs - 12hr 04/18/21 04/18/21 04/19/21 23:01 23:31 00:01 Pulse Rate 76 Respiratory 27 H Rate Blood Pressure 122/72 121/79 123/76 O2 Sat by Pulse 84 89 96 Oximetry 04/19/21 04/19/21 04/19/21 00:31 01:01 02:00 Pulse Rate 69 68 Respiratory 37 H 46 H Rate Blood Pressure 119/67 105/59 O2 Sat by Pulse 88 96 Oximetry 04/19/21 04/19/21 04/19/21 02:01 02:31 03:00 Pulse Rate 61 70 58 L Respiratory 30 H 33 H 25 H Rate Blood Pressure 104/59 114/65 121/79 O2 Sat by Pulse 96 93 93 Oximetry 04/19/21 04/19/21 04/19/21 03:31 04:01 04:31 Pulse Rate 61 76 62 Respiratory 35 H 43 H 36 H Rate Blood Pressure 108/52 98/55 123/61 O2 Sat by Pulse 93 89 89 Oximetry 04/19/21 04/19/21 04/19/21 05:01 05:31 06:01 Pulse Rate 54 L 55 L 69 Respiratory 35 H 36 H 35 H Rate Blood Pressure 116/53 96/61 112/54 O2 Sat by Pulse 93 92 76 L Oximetry 04/19/21 04/19/21 04/19/21 06:31 07:01 07:31 Pulse Rate 60 59 L 60 Respiratory 18 35 H 33 H Rate Blood Pressure 104/54 104/54 97/59 O2 Sat by Pulse 92 92 88 Oximetry 04/19/21 04/19/21 04/19/21 08:01 08:31 08:55 Pulse Rate 58 L 64 Respiratory 32 H 32 H Rate Blood Pressure 95/59 119/69 O2 Sat by Pulse 90 91 94 Oximetry Constitutional: no acute distress, other Eyes: non-icteric Ascultation: Bilateral: diminished breath sounds CBC and BMP: 04/19/21 04:19 04/19/21 04:19 ABG, PT/INR, D-dimer: PT/INR, D-dimer D-Dimer 262.48 ng/mlDDU (0-234) H 04/17/21 08:26 Abnormal lab findings: Abnormal Labs 04/16/21 04/16/21 04/16/21 11:42 11:42 11:42 WBC RDW 16.1 H Lymph % (Auto) 7.8 L Lymph # (Auto) 0.8 L Seg Neutrophils % 87.7 H Seg Neutrophils # 8.5 H D-Dimer 338.70 H Potassium BUN Creatinine Glucose 194 H POC Glucose Hemoglobin A1c Ferritin Lactate Dehydrogenase C-Reactive Protein Total Protein 8.4 H Albumin 3.8 L Coronavirus (PCR) 04/16/21 04/16/21 04/17/21 11:42 11:42 03:50 WBC RDW 16.0 H Lymph % (Auto) 7.7 L Lymph # (Auto) 0.6 L Seg Neutrophils % 89.8 H Seg Neutrophils # D-Dimer Potassium BUN Creatinine Glucose 195 H POC Glucose Hemoglobin A1c Ferritin 254.3 H Lactate Dehydrogenase 359 H C-Reactive Protein 15.20 H Total Protein Albumin Coronavirus (PCR) 04/17/21 04/17/21 04/17/21 03:50 08:26 08:26 WBC RDW Lymph % (Auto) Lymph # (Auto) Seg Neutrophils % Seg Neutrophils # D-Dimer 262.48 H Potassium BUN 20 H Creatinine 0.5 L Glucose 249 H 225 H POC Glucose Hemoglobin A1c Ferritin Lactate Dehydrogenase 338 H C-Reactive Protein 17.20 H Total Protein Albumin 3.2 L Coronavirus (PCR) 04/17/21 04/17/21 04/17/21 08:26 15:04 Unknown WBC RDW Lymph % (Auto) Lymph # (Auto) Seg Neutrophils % Seg Neutrophils # D-Dimer Potassium BUN 20 H Creatinine 0.5 L Glucose 246 H POC Glucose Hemoglobin A1c Ferritin 392.0 H Lactate Dehydrogenase C-Reactive Protein Total Protein 8.3 H Albumin 3.1 L Coronavirus (PCR) Positive A 04/18/21 04/18/21 04/18/21 05:06 05:06 07:36 WBC 11.6 H RDW 16.1 H Lymph % (Auto) Lymph # (Auto) Seg Neutrophils % Seg Neutrophils # D-Dimer Potassium 5.2 H BUN 22 H Creatinine 0.5 L Glucose 315 H POC Glucose Hemoglobin A1c 8.5 H Ferritin Lactate Dehydrogenase C-Reactive Protein Total Protein Albumin 3.3 L Coronavirus (PCR) 04/18/21 04/18/21 04/18/21 11:59 16:43 23:24 WBC RDW Lymph % (Auto) Lymph # (Auto) Seg Neutrophils % Seg Neutrophils # D-Dimer Potassium BUN Creatinine Glucose POC Glucose 284 H 273 H 290 H Hemoglobin A1c Ferritin Lactate Dehydrogenase C-Reactive Protein Total Protein Albumin Coronavirus (PCR) 04/19/21 04/19/21 04/19/21 04:19 04:19 08:10 WBC RDW 15.7 H Lymph % (Auto) Lymph # (Auto) Seg Neutrophils % Seg Neutrophils # D-Dimer Potassium BUN 27 H Creatinine 0.4 L Glucose 184 H POC Glucose 194 H Hemoglobin A1c Ferritin Lactate Dehydrogenase C-Reactive Protein Total Protein Albumin 3.1 L Coronavirus (PCR)
--- NOTE | 2021-04-19 12:24 | Progress Note ---
Assessment and Plan Assessment and plan: 50 YO Female with GERD, Obesity, HLD presents to ED for evaluation. Patient reports "I cannot breathe". Patient states that she has experienced subjective fever, shortness of breath, malaise, body aches, dry cough, and shortness of breath over the past 1 week with progressively worsening symptoms over the same timeframe. EMS was notified and upon arrival the patient was found to be in distress and subsequent transported to [facility] for further care and evaluation of the aforementioned symptoms. The patient was seen and evaluated in the emergency department. All lab and imaging studies reviewed. Patient found to have a pulse oximetry of 86% with exertion on room air which is consistent with acute hypoxemic respiratory failure. Patient with chest x-ray which revealed bilateral pneumonia. Patient admitted to medical floor and initiated him on pneumonia protocol as well as coronavirus protocol. Patient knowledges fever but denies chills, chest pain, palpitation, skin rash, recent ill contacts, or known exposure to COVID-19. Prior admission on 01/21/2017 reviewed. All medication listed at time of admission has been reconciled. Patient is unvaccinated for coronavirus infection. CXR: Bilateral Pneumonia 04/17: Patient seen and examined, still uncomfortable with Hypoxic respiratory failure and on oxygen, will continue to steroids therapy, start patient on Remdesivir, ID consulted, Pulmonary consult placed. 04/18: Patient seen and examined, she is currently being changed to High flow NC due to worsening HYPOXIA, will transfer to IMCU, Pulmonary and ID following. Will also give a dose of Lasix today. Monitor Inflammatory markers. 04/19: Patient seen and examined still on high flow due to hypoxia. Appears a bit more comfortable today than yesterday. Cough has decreased in frequency. We will continue high dose Dexameathasone to complete 10 days. continue on Remdesivir 200 mg IV q day x 1 followed by 100 mg IV q day x 4 days -Obtain q48-72h inflammatory markers - ferritin, Ddimer, CRP, LDH Will also give lasix daily for the next 3 days and monitor renal function. Family updated. Continue prone positioning as tolerated (1) Acute hypoxemic respiratory failure Current Visit: Yes Status: Acute Plan to address problem: Supplemental oxygen, chest x-ray, pulse oximetry, nebulizer therapy, proposition while in bed, noninvasive positive pressure ventilation as clinically indicated. If patient is unable to maintain pulse oximetry will consider high flow supplemental oxygen. (2) Pneumonia Current Visit: Yes Status: Acute Plan to address problem: Pneumonia protocol: Chest x-ray, CBC, CMP, IV antibiotic therapy, blood culture. (3) 2019 novel coronavirus infection Current Visit: Yes Status: Acute Plan to address problem: Coronavirus protocol: IV antibiotic therapy, IV steroid therapy, vitamin C therapy, vitamin D therapy, zinc therapy, prone positioning while in bed, nebulizer therapy, supplemental oxygen, pulse oximetry. Prophylactic anticoagulation (4) Obesity hypoventilation syndrome Current Visit: Yes Status: Acute Plan to address problem: Balanced diet, increase physical activity discharge, outpatient pulmonary follow-up for sleep study. (5) DVT prophylaxis Current Visit: Yes Status: Acute Plan to address problem: SCD to bilateral lower extremities while in bed, prophylactic anticoagulation The high probability of a clinically significant, sudden or life threatening deterioration of the [Pulmonary] system(s) required my full and direct attention, intervention and personal management. The aggregate critical care time was [35] minutes. This time is in addition to time spent performing reported procedures but includes the following: [x] Data Review and interpretation [x] Patient assessment and monitoring of vital signs [x] Documentation [x] Medication orders and management History Interval history: Patient is seen and examined, still with shortness of breath, Remains on High flow Hospitalist Physical - Physical exam Narrative exam: General appearance: Absent: mild distress, Continues on high flow, shallow breathing - EENT Eyes: Present: PERRL ENT: hearing intact, clear oral mucosa - Neck Neck: Present: supple, normal ROM - Respiratory Respiratory effort: normal Respiratory: bilateral: Diminished - Cardiovascular Heart Sounds: Present: S1 & S2. Absent: rub, click - Extremities Extremities: pulses symmetrical, No edema Peripheral Pulses: within normal limits - Abdominal General gastrointestinal: Present: soft, non-tender, non-distended, normal bowel sounds Female genitourinary: Present: normal - Integumentary Integumentary: Present: clear, warm, dry - Musculoskeletal Musculoskeletal: gait normal, strength equal bilaterally - Psychiatric Psychiatric: appropriate mood/affect, intact judgment & insight - Neurologic Neurologic: CNII-XII intact, moves all extremities - Constitutional Vitals: Temp Pulse Resp BP Pulse Ox 98.0 F 76 28 H 131/82 93 04/18/21 12:35 04/19/21 11:00 04/19/21 11:38 04/19/21 11:00 04/19/21 11:00 General appearance: Absent: no acute distress, mild distress Results - Labs CBC & Chem 7: 04/19/21 04:19 04/19/21 04:19 Labs: Laboratory Last Values WBC 9.1 K/mm3 (4.5-11.0) 04/19/21 04:19 RBC 4.11 M/mm3 (3.65-5.03) 04/19/21 04:19 Hgb 12.3 gm/dl (10.1-14.3) 04/19/21 04:19 Hct 36.2 % (30.3-42.9) 04/19/21 04:19 MCV 88 fl (79-97) 04/19/21 04:19 MCH 30 pg (28-32) 04/19/21 04:19 MCHC 34 % (30-34) 04/19/21 04:19 RDW 15.7 % (13.2-15.2) H 04/19/21 04:19 Plt Count 320 K/mm3 (140-440) 04/19/21 04:19 Lymph % (Auto) 7.7 % (13.4-35.0) L 04/17/21 03:50 [place] % (Auto) 2.5 % (0.0-7.3) 04/17/21 03:50 Eos % (Auto) 0.0 % (0.0-4.3) 04/17/21 03:50 Baso % (Auto) 0.0 % (0.0-1.8) 04/17/21 03:50 Lymph # (Auto) 0.6 K/mm3 (1.2-5.4) L 04/17/21 03:50 [place] # (Auto) 0.2 K/mm3 (0.0-0.8) 04/17/21 03:50 Eos # (Auto) 0.0 K/mm3 (0.0-0.4) 04/17/21 03:50 Baso # (Auto) 0.0 K/mm3 (0.0-0.1) 04/17/21 03:50 Seg Neutrophils % 89.8 % (40.0-70.0) H 04/17/21 03:50 Seg Neutrophils # 6.7 K/mm3 (1.8-7.7) 04/17/21 03:50 D-Dimer 262.48 ng/mlDDU (0-234) H 04/17/21 08:26 Sodium 143 mmol/L (137-145) 04/19/21 04:19 Potassium 4.4 mmol/L (3.6-5.0) 04/19/21 04:19 Chloride 103.9 mmol/L (98-107) 04/19/21 04:19 Carbon Dioxide 30 mmol/L (22-30) 04/19/21 04:19 Anion Gap 14 mmol/L 04/19/21 04:19 BUN 27 mg/dL (7-17) H 04/19/21 04:19 Creatinine 0.4 mg/dL (0.6-1.2) L 04/19/21 04:19 Estimated GFR > 60 ml/min 04/19/21 04:19 BUN/Creatinine Ratio 68 % 04/19/21 04:19 Glucose 184 mg/dL (65-100) H 04/19/21 04:19 POC Glucose 224 mg/dL (70-105) H 04/19/21 11:38 Hemoglobin A1c 8.5 % (4-6) H 04/18/21 07:36 Calcium 9.1 mg/dL (8.4-10.2) 04/19/21 04:19 Ferritin 392.0 ng/mL (10.0-200.0) H 04/17/21 08:26 Total Bilirubin 0.20 mg/dL (0.1-1.2) 04/19/21 04:19 AST 21 units/L (5-40) 04/19/21 04:19 ALT 21 units/L (7-56) 04/19/21 04:19 Alkaline Phosphatase 50 units/L (35-129) 04/19/21 04:19 Lactate Dehydrogenase 338 units/L (91-180) H 04/17/21 08:26 C-Reactive Protein 17.20 mg/dL (0.00-1.30) H 04/17/21 08:26 Total Protein 6.4 g/dL (6.3-8.2) 04/19/21 04:19 Albumin 3.1 g/dL (3.9-5) L 04/19/21 04:19 Albumin/Globulin Ratio 0.9 % 04/19/21 04:19 Procalcitonin < 0.05 ng/mL (<0.15) 04/17/21 08:26 Coronavirus (PCR) Positive (Negative) A 04/17/21 Unknown Active Medications - Current Medications Current Medications: Generic Name Dose Route Start Last Admin Trade Name Freq PRN Reason Stop Dose Admin Acetaminophen 650 mg 04/16/21 14:00 04/18/21 12:15 Acetaminophen 325 Mg Tab PO 650 mg Q4H PRN Administration Pain MILD(1-3)/Fever >100.5/[place] Albuterol 2.5 mg 04/16/21 13:39 Albuterol 2.5 Mg/3 Ml Nebu IH Q4HRT PRN Shortness Of Breath Ascorbic Acid 250 mg 04/16/21 22:00 04/19/21 10:37 Ascorbic Acid 250 Mg Tab PO 250 mg BID TUTU Administration Cholecalciferol 1,000 unit 04/17/21 10:00 04/19/21 10:37 Cholecalciferol (Vit D3) 1000 Unit (25 Mcg) Tab PO 1,000 unit QDAY TUTU Administration Dexamethasone 8 mg 04/18/21 10:00 04/19/21 10:36 Dexamethasone 4 Mg/Ml Vial IV 04/27/21 10:01 8 mg DAILY TUTU Administration Dextrose 50 ml 04/18/21 07:30 Dextrose 50% In Water (25gm) 50 Ml Syringe IV Q30MIN PRN Hypoglycemia Protocol Famotidine 20 mg 04/16/21 22:00 04/19/21 10:36 Famotidine 20 Mg Tab PO 20 mg BID TUTU Administration Furosemide 40 mg 04/19/21 13:00 Furosemide 40 Mg/4 Ml Inj IV 04/21/21 10:01 QDAY TUTU Heparin Sodium (Porcine) 5,000 unit 04/16/21 22:00 04/19/21 10:36 Heparin 5,000 Unit/1 Ml Vial SUB-Q 5,000 unit Q12HR TUTU Administration Hydromorphone HCl 0.5 mg 04/16/21 14:00 Hydromorphone 1 Mg/1 Ml Inj IV Q12H PRN Pain , Severe (7-10) REMDESIVIR 100 mg/ Sodium 250 mls @ 500 mls/hr 04/18/21 21:00 04/18/21 21:31 Chloride IV 04/21/21 21:29 500 mls/hr Q24HR@2100 TUTU Administration Insulin Glargine 20 units 04/19/21 22:00 Insulin Glargine 100 Units/Ml SUB-Q QHS TUTU Insulin Human Lispro 0 unit 04/18/21 08:00 04/19/21 11:42 Insulin Lispro 100 Unit/Ml SUB-Q 4 unit ACHS TUTU Administration Protocol Ondansetron HCl 4 mg 04/16/21 14:00 Ondansetron 4 Mg/2 Ml Inj IV Q8H PRN Nausea And Vomiting Oxycodone/Acetaminophen 1 tab 04/16/21 14:00 04/19/21 10:38 Oxycodone /Acetaminophen 5-325mg Tab PO 1 tab Q12H PRN Administration Pain, Moderate (4-6) Sodium Chloride 10 ml 04/16/21 22:00 04/19/21 10:37 Sodium Chloride 0.9% 10 Ml Flush Syringe IV 10 ml BID TUTU Administration Sodium Chloride 10 ml 04/16/21 13:39 Sodium Chloride 0.9% 10 Ml Flush Syringe IV PRN PRN LINE FLUSH Sodium Chloride 50 ml 04/17/21 17:00 04/19/21 00:34 Sodium Chloride 0.9% 50 Ml Ivpb IV 04/21/21 21:01 50 ml Q24HR@2100 TUTU Administration Zinc Sulfate 220 mg 04/16/21 22:00 04/19/21 10:38 Zinc Sulfate 220 Mg Cap PO 220 mg BID TUTU Administration
[2021-04-19] MEDS: FUROSEMIDE 40 MG/4 ML INJ IV SCH (13:13)
[2021-04-19] MEDS: REMDESIVIR 100 MG in SODIUM CHLORIDE 0.9% 250ML 250 ML IV SCH (22:33)
[2021-04-20] MEDS: ASCORBIC ACID 500 MG TAB PO SCH ×2 (00:05→11:45)
[2021-04-20] MEDS: INSULIN GLARGINE 100 UNITS/ML SUB-Q SCH ×2 (00:06→23:32)
[2021-04-20] MEDS: ASCORBIC ACID 250 MG TAB PO SCH ×3 (00:11→22:00)
[2021-04-20] MEDS: SODIUM CHLORIDE 0.9% 50 ML IVPB IV SCH ×2 (01:02→23:32)
[2021-04-20 06:19] LABS: Alanine Aminotransferase 22 units/L (7-56); Blood Urea Nitrogen 27 mg/dL (7-17); Calcium 8.9 mg/dL (8.4-10.2); Hemolysis Index 25
[2021-04-20 06:20] LABS: BUN/Creatinine Ratio 45
[2021-04-20] MEDS: FUROSEMIDE 40 MG/4 ML INJ IV SCH (08:30)
[2021-04-20] MEDS: HYDROmorphone 1 MG/1 ML INJ IV PRN ×2 (08:40→19:48)
[2021-04-20] MEDS: INSULIN LISPRO 100 UNIT/ML SUB-Q SCH ×4 (08:55→22:47)
--- NOTE | 2021-04-20 09:23 | Progress Note ---
Assessment and Plan - Patient Problems (1) Pneumonia due to SARS-associated coronavirus Current Visit: Yes Status: Acute (2) Acute hypoxemic respiratory failure Current Visit: Yes Status: Acute (3) Obesity hypoventilation syndrome Current Visit: Yes Status: Acute (4) Pneumonia Current Visit: Yes Status: Acute Qualifiers: Aspiration pneumonia type: unspecified Laterality: unspecified laterality Lung location: unspecified part of lung (5) Transaminitis Current Visit: No Status: Acute Subjective Interval history: feels better still on hiflo o2 Objective Vital Signs - 12hr 04/19/21 04/19/21 04/19/21 21:31 21:41 21:51 Pulse Rate 74 71 71 Respiratory 32 H 24 25 H Rate Blood Pressure 116/77 116/77 116/77 O2 Sat by Pulse 92 92 Oximetry 04/19/21 04/19/21 04/19/21 22:01 22:11 22:21 Pulse Rate 77 79 79 Respiratory 28 H 29 H 28 H Rate Blood Pressure 118/77 118/77 118/77 O2 Sat by Pulse Oximetry 04/19/21 04/19/21 04/19/21 22:31 22:34 22:41 Pulse Rate 77 81 Respiratory 27 H 18 25 H Rate Blood Pressure 110/65 110/65 O2 Sat by Pulse 91 Oximetry 04/19/21 04/19/21 04/19/21 22:51 23:01 23:11 Pulse Rate 69 66 64 Respiratory 24 24 26 H Rate Blood Pressure 110/65 112/67 112/67 O2 Sat by Pulse 90 92 93 Oximetry 04/19/21 04/19/21 04/19/21 23:21 23:31 23:34 Pulse Rate 55 L 54 L Respiratory 24 24 18 Rate Blood Pressure 112/67 105/61 O2 Sat by Pulse 94 96 Oximetry 04/19/21 04/19/21 04/20/21 23:41 23:51 00:01 Pulse Rate 54 L 55 L 50 L Respiratory 22 22 22 Rate Blood Pressure 105/61 105/61 100/47 O2 Sat by Pulse 95 95 97 Oximetry 04/20/21 04/20/21 04/20/21 00:21 00:31 00:41 Pulse Rate 57 L 56 L 56 L Respiratory 25 H 23 24 Rate Blood Pressure 100/47 100/47 100/47 O2 Sat by Pulse 92 92 91 Oximetry 08/04/0304/20/21 04/20/21 00:51 01:01 01:11 Pulse Rate 57 L 57 L 63 Respiratory 25 H 22 24 Rate Blood Pressure 100/47 111/64 111/64 O2 Sat by Pulse 90 Oximetry 04/20/21 04/20/21 04/20/21 01:21 01:31 01:41 Pulse Rate 60 59 L 54 L Respiratory 24 24 21 Rate Blood Pressure 111/64 108/60 108/60 O2 Sat by Pulse 90 90 Oximetry 04/20/21 04/20/21 04/20/21 01:51 02:01 02:51 Pulse Rate 57 L 56 L 55 L Respiratory 25 H 25 H 27 H Rate Blood Pressure 108/60 104/68 104/68 O2 Sat by Pulse 93 92 90 Oximetry 04/20/21 04/20/21 04/20/21 03:01 03:11 03:21 Pulse Rate 57 L 55 L 53 L Respiratory 25 H 27 H 25 H Rate Blood Pressure 104/68 104/68 104/68 O2 Sat by Pulse 92 93 92 Oximetry 04/20/21 04/20/21 04/20/21 03:31 03:40 03:41 Pulse Rate 56 L 59 L Respiratory 24 26 H Rate Blood Pressure 105/66 105/66 O2 Sat by Pulse 93 90 94 Oximetry 04/20/21 04/20/21 04/20/21 03:51 04:01 04:11 Pulse Rate 67 62 56 L Respiratory 28 H 23 24 Rate Blood Pressure 105/66 105/66 105/66 O2 Sat by Pulse Oximetry 04/20/21 04/20/21 04/20/21 04:21 04:31 04:32 Pulse Rate 68 60 60 Respiratory 29 H 28 H 24 Rate Blood Pressure 105/66 120/78 120/78 O2 Sat by Pulse 98 96 98 Oximetry 04/20/21 04/20/21 04/20/21 04:41 04:51 05:01 Pulse Rate 57 L 57 L 55 L Respiratory 29 H 28 H Rate Blood Pressure 120/78 120/78 117/78 O2 Sat by Pulse 97 97 97 Oximetry 04/20/21 04/20/21 04/20/21 05:11 05:21 05:31 Pulse Rate 52 L 50 L 55 L Respiratory 27 H 28 H 28 H Rate Blood Pressure 117/78 117/78 115/72 O2 Sat by Pulse 98 98 99 Oximetry 04/20/21 04/20/21 04/20/21 05:41 05:51 06:01 Pulse Rate 66 57 L 61 Respiratory Rate Blood Pressure 117/78 117/78 111/49 O2 Sat by Pulse 96 97 98 Oximetry 04/20/21 04/20/21 04/20/21 06:11 06:21 06:31 Pulse Rate 56 L 53 L 60 Respiratory 28 H 28 H 26 H Rate Blood Pressure 111/49 111/49 104/60 O2 Sat by Pulse 97 98 98 Oximetry 04/20/21 04/20/21 04/20/21 06:41 07:01 08:58 Pulse Rate 54 L 55 L 65 Respiratory 27 H 29 H 35 H Rate Blood Pressure 104/60 116/65 113/61 O2 Sat by Pulse 98 98 99 Oximetry Constitutional: no acute distress, other (on hiflo 100%) Eyes: non-icteric Ascultation: Bilateral: diminished breath sounds Cardiovascular: regular rate and rhythm Gastrointestinal: normoactive bowel sounds, soft, non-tender, non-distended Extremities: no cyanosis Psychiatric: anxious CBC and BMP: 04/19/21 04:19 04/20/21 05:28 ABG, PT/INR, D-dimer: PT/INR, D-dimer D-Dimer 262.48 ng/mlDDU (0-234) H 04/17/21 08:26 Abnormal lab findings: Abnormal Labs 04/16/21 04/16/21 04/16/21 11:42 11:42 11:42 WBC RDW 16.1 H Lymph % (Auto) 7.8 L Lymph # (Auto) 0.8 L Seg Neutrophils % 87.7 H Seg Neutrophils # 8.5 H D-Dimer 338.70 H Potassium BUN Creatinine Glucose 194 H POC Glucose Hemoglobin A1c Ferritin Lactate Dehydrogenase C-Reactive Protein Total Protein 8.4 H Albumin 3.8 L Coronavirus (PCR) 04/16/21 04/16/21 04/17/21 11:42 11:42 03:50 WBC RDW 16.0 H Lymph % (Auto) 7.7 L Lymph # (Auto) 0.6 L Seg Neutrophils % 89.8 H Seg Neutrophils # D-Dimer Potassium BUN Creatinine Glucose 195 H POC Glucose Hemoglobin A1c Ferritin 254.3 H Lactate Dehydrogenase 359 H C-Reactive Protein 15.20 H Total Protein Albumin Coronavirus (PCR) 04/17/21 04/17/21 04/17/21 03:50 08:26 08:26 WBC RDW Lymph % (Auto) Lymph # (Auto) Seg Neutrophils % Seg Neutrophils # D-Dimer 262.48 H Potassium BUN 20 H Creatinine 0.5 L Glucose 249 H 225 H POC Glucose Hemoglobin A1c Ferritin Lactate Dehydrogenase 338 H C-Reactive Protein 17.20 H Total Protein Albumin 3.2 L Coronavirus (PCR) 04/17/21 04/17/21 04/17/21 08:26 15:04 Unknown WBC RDW Lymph % (Auto) Lymph # (Auto) Seg Neutrophils % Seg Neutrophils # D-Dimer Potassium BUN 20 H Creatinine 0.5 L Glucose 246 H POC Glucose Hemoglobin A1c Ferritin 392.0 H Lactate Dehydrogenase C-Reactive Protein Total Protein 8.3 H Albumin 3.1 L Coronavirus (PCR) Positive A 04/18/21 04/18/21 04/18/21 05:06 05:06 07:36 WBC 11.6 H RDW 16.1 H Lymph % (Auto) Lymph # (Auto) Seg Neutrophils % Seg Neutrophils # D-Dimer Potassium 5.2 H BUN 22 H Creatinine 0.5 L Glucose 315 H POC Glucose Hemoglobin A1c 8.5 H Ferritin Lactate Dehydrogenase C-Reactive Protein Total Protein Albumin 3.3 L Coronavirus (PCR) 04/18/21 04/18/21 04/18/21 11:59 16:43 23:24 WBC RDW Lymph % (Auto) Lymph # (Auto) Seg Neutrophils % Seg Neutrophils # D-Dimer Potassium BUN Creatinine Glucose POC Glucose 284 H 273 H 290 H Hemoglobin A1c Ferritin Lactate Dehydrogenase C-Reactive Protein Total Protein Albumin Coronavirus (PCR) 04/19/21 04/19/21 04/19/21 04:19 04:19 08:10 WBC RDW 15.7 H Lymph % (Auto) Lymph # (Auto) Seg Neutrophils % Seg Neutrophils # D-Dimer Potassium BUN 27 H Creatinine 0.4 L Glucose 184 H POC Glucose 194 H Hemoglobin A1c Ferritin Lactate Dehydrogenase C-Reactive Protein Total Protein Albumin 3.1 L Coronavirus (PCR) 04/19/21 04/19/21 04/19/21 11:38 16:25 22:04 WBC RDW Lymph % (Auto) Lymph # (Auto) Seg Neutrophils % Seg Neutrophils # D-Dimer Potassium BUN Creatinine Glucose POC Glucose 224 H 297 H 251 H Hemoglobin A1c Ferritin Lactate Dehydrogenase C-Reactive Protein Total Protein Albumin Coronavirus (PCR) 04/20/21 04/20/21 05:28 08:43 WBC RDW Lymph % (Auto) Lymph # (Auto) Seg Neutrophils % Seg Neutrophils # D-Dimer Potassium BUN 27 H Creatinine Glucose 192 H POC Glucose 173 H Hemoglobin A1c Ferritin Lactate Dehydrogenase C-Reactive Protein Total Protein Albumin 3.0 L Coronavirus (PCR)
[2021-04-20] MEDS: dexAMETHasone 4 MG/ML VIAL IV SCH (09:45)
[2021-04-20] MEDS: FAMOTIDINE 20 MG TAB PO SCH ×2 (09:45→22:00)
[2021-04-20] MEDS: ZINC SULFATE 220 MG CAP PO SCH ×2 (09:45→22:00)
[2021-04-20] MEDS: HEPARIN 5,000 UNIT/1 ML VIAL SUB-Q SCH ×2 (09:45→22:00)
[2021-04-20] MEDS: CHOLECALCIFEROL (VIT D3) 1000 UNIT (25 mcg) TAB PO SCH (11:45)
--- NOTE | 2021-04-20 12:52 | Progress Note ---
Assessment and Plan Assessment and plan: 50 YO Female with GERD, Obesity, HLD presents to ED for evaluation. Patient reports "I cannot breathe". Patient states that she has experienced subjective fever, shortness of breath, malaise, body aches, dry cough, and shortness of breath over the past 1 week with progressively worsening symptoms over the same timeframe. EMS was notified and upon arrival the patient was found to be in distress and subsequent transported to [facility] for further care and evaluation of the aforementioned symptoms. The patient was seen and evaluated in the emergency department. All lab and imaging studies reviewed. Patient found to have a pulse oximetry of 86% with exertion on room air which is consistent with acute hypoxemic respiratory failure. Patient with chest x-ray which revealed bilateral pneumonia. Patient admitted to medical floor and initiated him on pneumonia protocol as well as coronavirus protocol. Patient knowledges fever but denies chills, chest pain, palpitation, skin rash, recent ill contacts, or known exposure to COVID-19. Prior admission on 01/21/2017 reviewed. All medication listed at time of admission has been reconciled. Patient is unvaccinated for coronavirus infection. CXR: Bilateral Pneumonia 04/17: Patient seen and examined, still uncomfortable with Hypoxic respiratory failure and on oxygen, will continue to steroids therapy, start patient on Remdesivir, ID consulted, Pulmonary consult placed. 04/18: Patient seen and examined, she is currently being changed to High flow NC due to worsening HYPOXIA, will transfer to IMCU, Pulmonary and ID following. Will also give a dose of Lasix today. Monitor Inflammatory markers. 04/19: Patient seen and examined still on high flow due to hypoxia. Appears a bit more comfortable today than yesterday. Cough has decreased in frequency. We will continue high dose Dexameathasone to complete 10 days. continue on Remdesivir 200 mg IV q day x 1 followed by 100 mg IV q day x 4 days -Obtain q48-72h inflammatory markers - ferritin, Ddimer, CRP, LDH Will also give lasix daily for the next 3 days and monitor renal function. Family updated. Continue prone positioning as tolerated 04/20: Patient has some desaturation episodes yesterday was placed on BiPAP. Discussed with ICU team for bed availability for patient to be transferred up. Continue prone position as tolerated. (1) Acute hypoxemic respiratory failure Current Visit: Yes Status: Acute Plan to address problem: Supplemental oxygen, chest x-ray, pulse oximetry, nebulizer therapy, proposition while in bed, noninvasive positive pressure ventilation as clinically indicated. If patient is unable to maintain pulse oximetry will consider high flow supplemental oxygen. (2) Pneumonia Current Visit: Yes Status: Acute Plan to address problem: Pneumonia protocol: Chest x-ray, CBC, CMP, IV antibiotic therapy, blood culture. (3) 2019 novel coronavirus infection Current Visit: Yes Status: Acute Plan to address problem: Coronavirus protocol: IV antibiotic therapy, IV steroid therapy, vitamin C therapy, vitamin D therapy, zinc therapy, prone positioning while in bed, nebulizer therapy, supplemental oxygen, pulse oximetry. Prophylactic anticoagulation (4) Obesity hypoventilation syndrome Current Visit: Yes Status: Acute Plan to address problem: Balanced diet, increase physical activity discharge, outpatient pulmonary follow-up for sleep study. (5) DVT prophylaxis Current Visit: Yes Status: Acute Plan to address problem: SCD to bilateral lower extremities while in bed, prophylactic anticoagulation The high probability of a clinically significant, sudden or life threatening deterioration of the [Pulmonary] system(s) required my full and direct attention, intervention and personal management. The aggregate critical care time was [35] minutes. This time is in addition to time spent performing reported procedures but includes the following: [x] Data Review and interpretation [x] Patient assessment and monitoring of vital signs [x] Documentation [x] Medication orders and management History Interval history: Patient is seen and examined, still with shortness of breath, Remains on High flow had to be changed to BiPAP due to desaturation. Hospitalist Physical - Physical exam Narrative exam: General appearance: Absent: mild distress, Continues on high flow, shallow breathing - EENT Eyes: Present: PERRL ENT: hearing intact, clear oral mucosa - Neck Neck: Present: supple, normal ROM - Respiratory Respiratory effort: normal Respiratory: bilateral: Diminished - Cardiovascular Heart Sounds: Present: S1 & S2. Absent: rub, click - Extremities Extremities: pulses symmetrical, No edema Peripheral Pulses: within normal limits - Abdominal General gastrointestinal: Present: soft, non-tender, non-distended, normal bowel sounds Female genitourinary: Present: normal - Integumentary Integumentary: Present: clear, warm, dry - Musculoskeletal Musculoskeletal: gait normal, strength equal bilaterally - Psychiatric Psychiatric: appropriate mood/affect, intact judgment & insight - Neurologic Neurologic: CNII-XII intact, moves all extremities - Constitutional Vitals: Temp Pulse Resp BP Pulse Ox 97.7 F 57 L 29 H 108/63 100 04/19/21 19:30 04/20/21 10:11 04/20/21 10:11 04/20/21 12:11 04/20/21 10:11 General appearance: Absent: no acute distress, mild distress Results - Labs CBC & Chem 7: 04/19/21 04:19 04/20/21 05:28 Labs: Laboratory Last Values WBC 9.1 K/mm3 (4.5-11.0) 04/19/21 04:19 RBC 4.11 M/mm3 (3.65-5.03) 04/19/21 04:19 Hgb 12.3 gm/dl (10.1-14.3) 04/19/21 04:19 Hct 36.2 % (30.3-42.9) 04/19/21 04:19 MCV 88 fl (79-97) 04/19/21 04:19 MCH 30 pg (28-32) 04/19/21 04:19 MCHC 34 % (30-34) 04/19/21 04:19 RDW 15.7 % (13.2-15.2) H 04/19/21 04:19 Plt Count 320 K/mm3 (140-440) 04/19/21 04:19 Lymph % (Auto) 7.7 % (13.4-35.0) L 04/17/21 03:50 [place] % (Auto) 2.5 % (0.0-7.3) 04/17/21 03:50 Eos % (Auto) 0.0 % (0.0-4.3) 04/17/21 03:50 Baso % (Auto) 0.0 % (0.0-1.8) 04/17/21 03:50 Lymph # (Auto) 0.6 K/mm3 (1.2-5.4) L 04/17/21 03:50 [place] # (Auto) 0.2 K/mm3 (0.0-0.8) 04/17/21 03:50 Eos # (Auto) 0.0 K/mm3 (0.0-0.4) 04/17/21 03:50 Baso # (Auto) 0.0 K/mm3 (0.0-0.1) 04/17/21 03:50 Seg Neutrophils % 89.8 % (40.0-70.0) H 04/17/21 03:50 Seg Neutrophils # 6.7 K/mm3 (1.8-7.7) 04/17/21 03:50 D-Dimer 262.48 ng/mlDDU (0-234) H 04/17/21 08:26 Sodium 139 mmol/L (137-145) 04/20/21 05:28 Potassium 5.0 mmol/L (3.6-5.0) 04/20/21 05:28 Chloride 100.2 mmol/L (98-107) 04/20/21 05:28 Carbon Dioxide 29 mmol/L (22-30) 04/20/21 05:28 Anion Gap 15 mmol/L 04/20/21 05:28 BUN 27 mg/dL (7-17) H 04/20/21 05:28 Creatinine 0.6 mg/dL (0.6-1.2) 04/20/21 05:28 Estimated GFR > 60 ml/min 04/20/21 05:28 BUN/Creatinine Ratio 45 % 04/20/21 05:28 Glucose 192 mg/dL (65-100) H 04/20/21 05:28 POC Glucose 173 mg/dL (70-105) H 04/20/21 08:43 Hemoglobin A1c 8.5 % (4-6) H 04/18/21 07:36 Calcium 8.9 mg/dL (8.4-10.2) 04/20/21 05:28 Ferritin 392.0 ng/mL (10.0-200.0) H 04/17/21 08:26 Total Bilirubin 0.30 mg/dL (0.1-1.2) 04/20/21 05:28 AST 21 units/L (5-40) 04/20/21 05:28 ALT 22 units/L (7-56) 04/20/21 05:28 Alkaline Phosphatase 52 units/L (35-129) 04/20/21 05:28 Lactate Dehydrogenase 338 units/L (91-180) H 04/17/21 08:26 C-Reactive Protein 17.20 mg/dL (0.00-1.30) H 04/17/21 08:26 Total Protein 7.5 g/dL (6.3-8.2) 04/20/21 05:28 Albumin 3.0 g/dL (3.9-5) L 04/20/21 05:28 Albumin/Globulin Ratio 0.7 % 04/20/21 05:28 Procalcitonin < 0.05 ng/mL (<0.15) 04/17/21 08:26 Coronavirus (PCR) Positive (Negative) A 04/17/21 Unknown Active Medications - Current Medications Current Medications: Generic Name Dose Route Start Last Admin Trade Name Freq PRN Reason Stop Dose Admin Acetaminophen 650 mg 04/16/21 14:00 04/18/21 12:15 Acetaminophen 325 Mg Tab PO 650 mg Q4H PRN Administration Pain MILD(1-3)/Fever >100.5/[place] Albuterol 2.5 mg 04/16/21 13:39 Albuterol 2.5 Mg/3 Ml Nebu IH Q4HRT PRN Shortness Of Breath Ascorbic Acid 250 mg 04/20/21 10:00 04/20/21 11:46 Ascorbic Acid 250 Mg Tab PO 250 mg BID TUTU Administration Cholecalciferol 1,000 unit 04/17/21 10:00 04/20/21 11:45 Cholecalciferol (Vit D3) 1000 Unit (25 Mcg) Tab PO 1,000 unit QDAY TUTU Administration Dexamethasone 8 mg 04/18/21 10:00 04/20/21 09:45 Dexamethasone 4 Mg/Ml Vial IV 04/27/21 10:01 8 mg DAILY TUTU Administration Dextrose 50 ml 04/18/21 07:30 Dextrose 50% In Water (25gm) 50 Ml Syringe IV Q30MIN PRN Hypoglycemia Protocol Famotidine 20 mg 04/16/21 22:00 04/20/21 09:45 Famotidine 20 Mg Tab PO 20 mg BID TUTU Administration Furosemide 40 mg 04/19/21 13:00 04/20/21 08:30 Furosemide 40 Mg/4 Ml Inj IV 04/21/21 06:01 Not Given DAILY@0600 TUTU Heparin Sodium (Porcine) 5,000 unit 04/16/21 22:00 04/20/21 09:45 Heparin 5,000 Unit/1 Ml Vial SUB-Q 5,000 unit Q12HR TUTU Administration Hydromorphone HCl 0.5 mg 04/16/21 14:00 Hydromorphone 1 Mg/1 Ml Inj IV Q12H PRN Pain , Severe (7-10) REMDESIVIR 100 mg/ Sodium 250 mls @ 500 mls/hr 04/18/21 21:00 04/19/21 22:33 Chloride IV 04/21/21 21:29 500 mls/hr Q24HR@2100 TUTU Administration Insulin Glargine 20 units 04/19/21 22:00 04/20/21 00:06 Insulin Glargine 100 Units/Ml SUB-Q 20 units QHS TUTU Administration Insulin Human Lispro 0 unit 04/18/21 08:00 04/20/21 08:55 Insulin Lispro 100 Unit/Ml SUB-Q 3 unit ACHS TUTU Administration Protocol Ondansetron HCl 4 mg 04/16/21 14:00 Ondansetron 4 Mg/2 Ml Inj IV Q8H PRN Nausea And Vomiting Oxycodone/Acetaminophen 1 tab 04/16/21 14:00 04/19/21 22:34 Oxycodone /Acetaminophen 5-325mg Tab PO 1 tab Q12H PRN Administration Pain, Moderate (4-6) Sodium Chloride 10 ml 04/16/21 22:00 04/20/21 09:39 Sodium Chloride 0.9% 10 Ml Flush Syringe IV 10 ml BID TUTU Administration Sodium Chloride 10 ml 04/16/21 13:39 Sodium Chloride 0.9% 10 Ml Flush Syringe IV PRN PRN LINE FLUSH Sodium Chloride 50 ml 04/17/21 17:00 04/20/21 01:02 Sodium Chloride 0.9% 50 Ml Ivpb IV 04/21/21 21:01 50 ml Q24HR@2100 TUTU Administration Zinc Sulfate 220 mg 04/16/21 22:00 04/20/21 09:45 Zinc Sulfate 220 Mg Cap PO 220 mg BID TUTU Administration
[2021-04-20] MEDS: oxyCODONE /ACETAMINOPHEN 5-325MG TAB PO PRN (22:01)
[2021-04-20] MEDS: REMDESIVIR 100 MG in SODIUM CHLORIDE 0.9% 250ML 250 ML IV SCH (23:32)
[2021-04-21] MEDS: FUROSEMIDE 40 MG/4 ML INJ IV SCH (06:07)
[2021-04-21] MEDS: INSULIN LISPRO 100 UNIT/ML SUB-Q SCH ×4 (08:01→22:19)
--- NOTE | 2021-04-21 08:16 | Progress Note ---
Assessment and Plan Assessment and plan: 50 YO Female with GERD, Obesity, HLD presents to ED for evaluation. Patient reports "I cannot breathe". Patient states that she has experienced subjective fever, shortness of breath, malaise, body aches, dry cough, and shortness of breath over the past 1 week with progressively worsening symptoms over the same timeframe. EMS was notified and upon arrival the patient was found to be in distress and subsequent transported to [facility] for further care and evaluation of the aforementioned symptoms. The patient was seen and evaluated in the emergency department. All lab and imaging studies reviewed. Patient found to have a pulse oximetry of 86% with exertion on room air which is consistent with acute hypoxemic respiratory failure. Patient with chest x-ray which revealed bilateral pneumonia. Patient admitted to medical floor and initiated him on pneumonia protocol as well as coronavirus protocol. Patient knowledges fever but denies chills, chest pain, palpitation, skin rash, recent ill contacts, or known exposure to COVID-19. Prior admission on 01/21/2017 reviewed. All medication listed at time of admission has been reconciled. Patient is unvaccinated for coronavirus infection. CXR: Bilateral Pneumonia 04/17: Patient seen and examined, still uncomfortable with Hypoxic respiratory failure and on oxygen, will continue to steroids therapy, start patient on Remdesivir, ID consulted, Pulmonary consult placed. 04/18: Patient seen and examined, she is currently being changed to High flow NC due to worsening HYPOXIA, will transfer to IMCU, Pulmonary and ID following. Will also give a dose of Lasix today. Monitor Inflammatory markers. 04/19: Patient seen and examined still on high flow due to hypoxia. Appears a bit more comfortable today than yesterday. Cough has decreased in frequency. We will continue high dose Dexameathasone to complete 10 days. continue on Remdesivir 200 mg IV q day x 1 followed by 100 mg IV q day x 4 days -Obtain q48-72h inflammatory markers - ferritin, Ddimer, CRP, LDH Will also give lasix daily for the next 3 days and monitor renal function. Family updated. Continue prone positioning as tolerated 04/20: Patient has some desaturation episodes yesterday was placed on BiPAP. Discussed with ICU team for bed availability for patient to be transferred up. Continue prone position as tolerated. 04/21: Patient remains with profound hypoxia secondary to COVID pneumonia. -Continue steroids -Continue remedesir -S/P Actmera (1) Acute hypoxemic respiratory failure Current Visit: Yes Status: Acute Plan to address problem: Supplemental oxygen, chest x-ray, pulse oximetry, nebulizer therapy, proposition while in bed, noninvasive positive pressure ventilation as clinically indicated. If patient is unable to maintain pulse oximetry will consider high flow s upplemental oxygen. (2) Pneumonia Current Visit: Yes Status: Acute Plan to address problem: Pneumonia protocol: Chest x-ray, CBC, CMP, IV antibiotic therapy, blood culture. (3) 2019 novel coronavirus infection Current Visit: Yes Status: Acute Plan to address problem: Coronavirus protocol: IV antibiotic therapy, IV steroid therapy, vitamin C therapy, vitamin D therapy, zinc therapy, prone positioning while in bed, nebulizer therapy, supplemental oxygen, pulse oximetry. Prophylactic anticoagulation (4) Obesity hypoventilation syndrome Current Visit: Yes Status: Acute Plan to address problem: Balanced diet, increase physical activity discharge, outpatient pulmonary follow-up for sleep study. (5) DVT prophylaxis Current Visit: Yes Status: Acute Plan to address problem: SCD to bilateral lower extremities while in bed, prophylactic anticoagulation The high probability of a clinically significant, sudden or life threatening deterioration of the [Pulmonary] system(s) required my full and direct attention, intervention and personal management. The aggregate critical care time was [35] minutes. This time is in addition to time spent performing reported procedures but includes the following: [x] Data Review and interpretation [x] Patient assessment and monitoring of vital signs [x] Documentation [x] Medication orders and management History Interval history: Patient is seen and examined, still with shortness of breath, remains on high flow Hospitalist Physical - Physical exam Narrative exam: General appearance: Absent: mild distress, Continues on high flow, shallow breathing - EENT Eyes: Present: PERRL ENT: hearing intact, clear oral mucosa - Neck Neck: Present: supple, normal ROM - Respiratory Respiratory effort: normal Respiratory: bilateral: Diminished - Cardiovascular Heart Sounds: Present: S1 & S2. Absent: rub, click - Extremities Extremities: pulses symmetrical, No edema Peripheral Pulses: within normal limits - Abdominal General gastrointestinal: Present: soft, non-tender, non-distended, normal bowel sounds Female genitourinary: Present: normal - Integumentary Integumentary: Present: clear, warm, dry - Musculoskeletal Musculoskeletal: gait normal, strength equal bilaterally - Psychiatric Psychiatric: appropriate mood/affect, intact judgment & insight - Neurologic Neurologic: CNII-XII intact, moves all extremities - Constitutional Vitals: Temp Pulse Resp BP Pulse Ox 97.7 F 81 31 H 112/70 92 04/19/21 19:30 04/21/21 06:46 04/21/21 06:46 04/21/21 06:46 04/21/21 06:46 General appearance: Absent: no acute distress, mild distress Results - Labs CBC & Chem 7: 04/19/21 04:19 04/20/21 05:28 Labs: Laboratory Last Values WBC 9.1 K/mm3 (4.5-11.0) 04/19/21 04:19 RBC 4.11 M/mm3 (3.65-5.03) 04/19/21 04:19 Hgb 12.3 gm/dl (10.1-14.3) 04/19/21 04:19 Hct 36.2 % (30.3-42.9) 04/19/21 04:19 MCV 88 fl (79-97) 04/19/21 04:19 MCH 30 pg (28-32) 04/19/21 04:19 MCHC 34 % (30-34) 04/19/21 04:19 RDW 15.7 % (13.2-15.2) H 04/19/21 04:19 Plt Count 320 K/mm3 (140-440) 04/19/21 04:19 Lymph % (Auto) 7.7 % (13.4-35.0) L 04/17/21 03:50 [place] % (Auto) 2.5 % (0.0-7.3) 04/17/21 03:50 Eos % (Auto) 0.0 % (0.0-4.3) 04/17/21 03:50 Baso % (Auto) 0.0 % (0.0-1.8) 04/17/21 03:50 Lymph # (Auto) 0.6 K/mm3 (1.2-5.4) L 04/17/21 03:50 [place] # (Auto) 0.2 K/mm3 (0.0-0.8) 04/17/21 03:50 Eos # (Auto) 0.0 K/mm3 (0.0-0.4) 04/17/21 03:50 Baso # (Auto) 0.0 K/mm3 (0.0-0.1) 04/17/21 03:50 Seg Neutrophils % 89.8 % (40.0-70.0) H 04/17/21 03:50 Seg Neutrophils # 6.7 K/mm3 (1.8-7.7) 04/17/21 03:50 D-Dimer 262.48 ng/mlDDU (0-234) H 04/17/21 08:26 Sodium 139 mmol/L (137-145) 04/20/21 05:28 Potassium 5.0 mmol/L (3.6-5.0) 04/20/21 05:28 Chloride 100.2 mmol/L (98-107) 04/20/21 05:28 Carbon Dioxide 29 mmol/L (22-30) 04/20/21 05:28 Anion Gap 15 mmol/L 04/20/21 05:28 BUN 27 mg/dL (7-17) H 04/20/21 05:28 Creatinine 0.6 mg/dL (0.6-1.2) 04/20/21 05:28 Estimated GFR > 60 ml/min 04/20/21 05:28 BUN/Creatinine Ratio 45 % 04/20/21 05:28 Glucose 192 mg/dL (65-100) H 04/20/21 05:28 POC Glucose 140 mg/dL (70-105) H 04/21/21 07:58 Hemoglobin A1c 8.5 % (4-6) H 04/18/21 07:36 Calcium 8.9 mg/dL (8.4-10.2) 04/20/21 05:28 Ferritin 392.0 ng/mL (10.0-200.0) H 04/17/21 08:26 Total Bilirubin 0.30 mg/dL (0.1-1.2) 04/20/21 05:28 AST 21 units/L (5-40) 04/20/21 05:28 ALT 22 units/L (7-56) 04/20/21 05:28 Alkaline Phosphatase 52 units/L (35-129) 04/20/21 05:28 Lactate Dehydrogenase 338 units/L (91-180) H 04/17/21 08:26 C-Reactive Protein 17.20 mg/dL (0.00-1.30) H 04/17/21 08:26 Total Protein 7.5 g/dL (6.3-8.2) 04/20/21 05:28 Albumin 3.0 g/dL (3.9-5) L 04/20/21 05:28 Albumin/Globulin Ratio 0.7 % 04/20/21 05:28 Procalcitonin < 0.05 ng/mL (<0.15) 04/17/21 08:26 Coronavirus (PCR) Positive (Negative) A 04/17/21 Unknown Active Medications - Current Medications Current Medications: Generic Name Dose Route Start Last Admin Trade Name Freq PRN Reason Stop Dose Admin Acetaminophen 650 mg 04/16/21 14:00 04/18/21 12:15 Acetaminophen 325 Mg Tab PO 650 mg Q4H PRN Administration Pain MILD(1-3)/Fever >100.5/[place] Albuterol 2.5 mg 04/16/21 13:39 Albuterol 2.5 Mg/3 Ml Nebu IH Q4HRT PRN Shortness Of Breath Ascorbic Acid 250 mg 04/20/21 10:00 04/20/21 22:00 Ascorbic Acid 250 Mg Tab PO 250 mg BID TUTU Administration Cholecalciferol 1,000 unit 04/17/21 10:00 04/20/21 11:45 Cholecalciferol (Vit D3) 1000 Unit (25 Mcg) Tab PO 1,000 unit QDAY TUTU Administration Dexamethasone 8 mg 04/18/21 10:00 04/20/21 09:45 Dexamethasone 4 Mg/Ml Vial IV 04/27/21 10:01 8 mg DAILY TUTU Administration Dextrose 50 ml 04/18/21 07:30 Dextrose 50% In Water (25gm) 50 Ml Syringe IV Q30MIN PRN Hypoglycemia Protocol Famotidine 20 mg 04/16/21 22:00 04/20/21 22:00 Famotidine 20 Mg Tab PO 20 mg BID TUTU Administration Heparin Sodium (Porcine) 5,000 unit 04/16/21 22:00 04/20/21 22:00 Heparin 5,000 Unit/1 Ml Vial SUB-Q 5,000 unit Q12HR TUTU Administration Hydromorphone HCl 0.5 mg 04/16/21 14:00 04/20/21 19:48 Hydromorphone 1 Mg/1 Ml Inj IV 0.5 mg Q12H PRN Administration Pain , Severe (7-10) REMDESIVIR 100 mg/ Sodium 250 mls @ 500 mls/hr 04/18/21 21:00 04/20/21 23:32 Chloride IV 04/21/21 21:29 500 mls/hr Q24HR@2100 TUTU Administration Insulin Glargine 20 units 04/19/21 22:00 04/20/21 23:32 Insulin Glargine 100 Units/Ml SUB-Q 20 units QHS TUTU Administration Insulin Human Lispro 0 unit 04/18/21 08:00 04/21/21 08:01 Insulin Lispro 100 Unit/Ml SUB-Q Not Given ACHS [facility] Protocol Ondansetron HCl 4 mg 04/16/21 14:00 Ondansetron 4 Mg/2 Ml Inj IV Q8H PRN Nausea And Vomiting Oxycodone/Acetaminophen 1 tab 04/16/21 14:00 04/20/21 22:01 Oxycodone /Acetaminophen 5-325mg Tab PO 1 tab Q12H PRN Administration Pain, Moderate (4-6) Sodium Chloride 10 ml 04/16/21 22:00 04/20/21 21:32 Sodium Chloride 0.9% 10 Ml Flush Syringe IV 10 ml BID TUTU Administration Sodium Chloride 10 ml 04/16/21 13:39 Sodium Chloride 0.9% 10 Ml Flush Syringe IV PRN PRN LINE FLUSH Sodium Chloride 50 ml 04/17/21 17:00 04/20/21 23:32 Sodium Chloride 0.9% 50 Ml Ivpb IV 04/21/21 21:01 50 ml Q24HR@2100 TUTU Administration Zinc Sulfate 220 mg 04/16/21 22:00 04/20/21 22:00 Zinc Sulfate 220 Mg Cap PO 220 mg BID TUTU Administration
[2021-04-21] MEDS: HEPARIN 5,000 UNIT/1 ML VIAL SUB-Q SCH ×2 (09:57→22:16)
[2021-04-21] MEDS: ZINC SULFATE 220 MG CAP PO SCH ×2 (09:58→22:16)
[2021-04-21] MEDS: FAMOTIDINE 20 MG TAB PO SCH ×2 (09:58→22:15)
[2021-04-21] MEDS: dexAMETHasone 4 MG/ML VIAL IV SCH (09:58)
[2021-04-21] MEDS: ASCORBIC ACID 250 MG TAB PO SCH ×2 (09:59→22:16)
[2021-04-21] MEDS: CHOLECALCIFEROL (VIT D3) 1000 UNIT (25 mcg) TAB PO SCH (09:59)
--- NOTE | 2021-04-21 10:24 | Progress Note ---
Assessment and Plan - Patient Problems (1) Pneumonia due to SARS-associated coronavirus Current Visit: Yes Status: Acute (2) Acute hypoxemic respiratory failure Current Visit: Yes Status: Acute (3) Obesity hypoventilation syndrome Current Visit: Yes Status: Acute (4) Pneumonia Current Visit: Yes Status: Acute Qualifiers: Aspiration pneumonia type: unspecified Laterality: unspecified laterality Lung location: unspecified part of lung (5) Transaminitis Current Visit: No Status: Acute (6) Oral thrush Current Visit: Yes Status: Acute Subjective Interval history: mouth pain less sob Objective Vital Signs - 12hr 04/20/21 04/20/21 04/20/21 22:25 22:30 22:36 Pulse Rate 62 60 55 L Respiratory 26 H 24 21 Rate Blood Pressure 116/66 118/70 116/66 Blood Pressure [Left] O2 Sat by Pulse 98 97 96 Oximetry 04/20/21 04/20/21 04/20/21 22:40 22:46 22:50 Pulse Rate 54 L 54 L 54 L Respiratory 21 22 20 Rate Blood Pressure 116/66 Blood Pressure [Left] O2 Sat by Pulse 98 97 96 Oximetry 04/20/21 04/20/21 04/20/21 22:56 23:00 23:06 Pulse Rate 55 L 56 L 53 L Respiratory 22 20 21 Rate Blood Pressure 107/61 107/61 107/61 Blood Pressure [Left] O2 Sat by Pulse 98 97 97 Oximetry 04/20/21 04/20/21 04/20/21 23:08 23:10 23:16 Pulse Rate 55 L 56 L 52 L Respiratory 23 20 20 Rate Blood Pressure 107/61 107/61 107/61 Blood Pressure [Left] O2 Sat by Pulse 97 96 97 Oximetry 04/20/21 04/20/21 04/20/21 23:20 23:26 23:30 Pulse Rate 52 L 52 L 49 L Respiratory 19 20 20 Rate Blood Pressure 107/61 98/57 98/57 Blood Pressure [Left] O2 Sat by Pulse 96 97 96 Oximetry 04/20/21 04/20/21 04/20/21 23:36 23:40 23:46 Pulse Rate 52 L 51 L 56 L Respiratory 20 19 18 Rate Blood Pressure 98/57 98/57 98/57 Blood Pressure [Left] O2 Sat by Pulse 97 97 96 Oximetry 04/20/21 04/20/21 04/21/21 23:50 23:56 00:00 Pulse Rate 54 L 52 L 52 L Respiratory 20 20 20 Rate Blood Pressure 98/57 93/58 93/58 Blood Pressure [Left] O2 Sat by Pulse 96 98 95 Oximetry 04/21/21 04/21/21 04/21/21 00:06 00:10 00:16 Pulse Rate 53 L 53 L 56 L Respiratory 20 19 24 Rate Blood Pressure 93/58 93/58 93/58 Blood Pressure [Left] O2 Sat by Pulse 96 95 94 Oximetry 04/21/21 04/21/21 04/21/21 00:20 00:26 00:30 Pulse Rate 53 L 65 60 Respiratory 22 32 H 24 Rate Blood Pressure 93/58 107/65 107/65 Blood Pressure [Left] O2 Sat by Pulse 96 96 94 Oximetry 04/21/21 04/21/21 04/21/21 00:36 00:40 00:46 Pulse Rate 60 58 L 56 L Respiratory 23 20 20 Rate Blood Pressure 107/65 107/65 107/65 Blood Pressure [Left] O2 Sat by Pulse 93 94 95 Oximetry 04/21/21 04/21/21 04/21/21 00:50 00:56 01:00 Pulse Rate 73 70 66 Respiratory 36 H 22 23 Rate Blood Pressure 107/65 112/64 112/64 Blood Pressure [Left] O2 Sat by Pulse 91 92 Oximetry 04/21/21 04/21/21 04/21/21 01:06 01:10 01:16 Pulse Rate 56 L 57 L 64 Respiratory 22 24 24 Rate Blood Pressure 112/64 112/64 112/64 Blood Pressure [Left] O2 Sat by Pulse 94 94 94 Oximetry 04/21/21 04/21/21 04/21/21 01:20 01:26 01:30 Pulse Rate 63 58 L 54 L Respiratory 25 H 23 19 Rate Blood Pressure 112/64 117/67 117/67 Blood Pressure [Left] O2 Sat by Pulse 93 92 94 Oximetry 04/21/21 04/21/21 04/21/21 01:36 01:40 01:46 Pulse Rate 54 L 52 L 52 L Respiratory 22 22 21 Rate Blood Pressure 117/67 117/67 117/67 Blood Pressure [Left] O2 Sat by Pulse 95 94 96 Oximetry 04/21/21 04/21/21 04/21/21 01:50 01:56 02:00 Pulse Rate 54 L 53 L 52 L Respiratory 21 20 20 Rate Blood Pressure 117/67 110/63 110/63 Blood Pressure [Left] O2 Sat by Pulse 93 95 94 Oximetry 04/21/21 04/21/21 04/21/21 02:06 02:10 02:16 Pulse Rate 55 L 53 L 57 L Respiratory 21 22 22 Rate Blood Pressure 110/63 110/63 110/63 Blood Pressure [Left] O2 Sat by Pulse 96 95 94 Oximetry 04/21/21 04/21/21 04/21/21 02:20 02:26 02:30 Pulse Rate 59 L 57 L 48 L Respiratory 23 21 16 Rate Blood Pressure 110/63 109/67 110/63 Blood Pressure [Left] O2 Sat by Pulse 95 95 96 Oximetry 04/21/21 04/21/21 04/21/21 02:36 02:40 02:46 Pulse Rate 55 L 53 L 55 L Respiratory 26 H 20 21 Rate Blood Pressure 110/63 110/63 110/63 Blood Pressure [Left] O2 Sat by Pulse 97 96 96 Oximetry 04/21/21 04/21/21 04/21/21 02:50 02:56 03:00 Pulse Rate 56 L 55 L 54 L Respiratory 26 H 21 24 Rate Blood Pressure 110/63 113/65 113/65 Blood Pressure [Left] O2 Sat by Pulse 95 95 95 Oximetry 04/21/21 04/21/21 04/21/21 03:06 03:10 03:16 Pulse Rate 54 L 58 L 54 L Respiratory 21 20 23 Rate Blood Pressure 113/65 113/65 113/65 Blood Pressure [Left] O2 Sat by Pulse 95 95 97 Oximetry 04/21/21 04/21/21 04/21/21 03:20 03:26 03:30 Pulse Rate 57 L 74 69 Respiratory 18 30 H 24 Rate Blood Pressure 113/65 123/69 123/69 Blood Pressure [Left] O2 Sat by Pulse 96 92 92 Oximetry 04/21/21 04/21/21 04/21/21 03:36 03:40 03:46 Pulse Rate 74 69 67 Respiratory 30 H 22 24 Rate Blood Pressure 123/69 123/69 123/69 Blood Pressure [Left] O2 Sat by Pulse 90 93 94 Oximetry 04/21/21 04/21/21 04/21/21 03:50 03:56 04:00 Pulse Rate 66 78 69 Respiratory 23 27 H 24 Rate Blood Pressure 123/69 117/76 117/76 Blood Pressure [Left] O2 Sat by Pulse 93 88 90 Oximetry 04/21/21 04/21/21 04/21/21 04:06 04:10 04:16 Pulse Rate 67 60 56 L Respiratory 26 H 25 H 26 H Rate Blood Pressure 117/76 117/76 117/76 Blood Pressure [Left] O2 Sat by Pulse 93 94 95 Oximetry 04/21/21 04/21/21 04/21/21 04:20 04:26 04:30 Pulse Rate 58 L 55 L 55 L Respiratory 23 23 23 Rate Blood Pressure 117/76 110/64 110/64 Blood Pressure [Left] O2 Sat by Pulse 95 95 95 Oximetry 04/21/21 04/21/21 04/21/21 04:36 04:40 04:46 Pulse Rate 64 58 L 56 L Respiratory 23 24 24 Rate Blood Pressure 110/64 110/64 110/64 Blood Pressure [Left] O2 Sat by Pulse 96 94 95 Oximetry 04/21/21 04/21/21 04/21/21 04:50 04:56 05:00 Pulse Rate 56 L 56 L 58 L Respiratory 25 H 25 H 25 H Rate Blood Pressure 110/64 110/67 110/67 Blood Pressure [Left] O2 Sat by Pulse 96 95 96 Oximetry 04/21/21 04/21/21 04/21/21 05:06 05:10 05:16 Pulse Rate 59 L 57 L 59 L Respiratory 25 H 23 24 Rate Blood Pressure 110/67 110/67 110/67 Blood Pressure [Left] O2 Sat by Pulse 95 95 95 Oximetry 04/21/21 04/21/21 04/21/21 05:20 05:26 05:30 Pulse Rate 55 L 55 L 55 L Respiratory 24 25 H 25 H Rate Blood Pressure 110/67 112/64 112/64 Blood Pressure [Left] O2 Sat by Pulse 96 95 95 Oximetry 04/21/21 04/21/21 04/21/21 05:36 05:40 05:46 Pulse Rate 54 L 62 69 Respiratory 26 H 16 25 H Rate Blood Pressure 110/67 110/67 110/67 Blood Pressure [Left] O2 Sat by Pulse 95 95 93 Oximetry 04/21/21 04/21/21 04/21/21 05:50 05:56 06:00 Pulse Rate 76 67 59 L Respiratory 26 H 25 H 20 Rate Blood Pressure 110/67 123/76 123/76 Blood Pressure [Left] O2 Sat by Pulse 90 93 93 Oximetry 04/21/21 04/21/21 04/21/21 06:06 06:10 06:16 Pulse Rate 55 L 51 L 58 L Respiratory 22 25 H 23 Rate Blood Pressure 123/76 123/76 123/76 Blood Pressure [Left] O2 Sat by Pulse 94 94 95 Oximetry 04/21/21 04/21/21 04/21/21 06:20 06:26 06:30 Pulse Rate 60 62 58 L Respiratory 25 H 24 25 H Rate Blood Pressure 123/76 112/70 112/70 Blood Pressure [Left] O2 Sat by Pulse 93 94 93 Oximetry 04/21/21 04/21/21 04/21/21 06:36 06:40 06:46 Pulse Rate 62 76 81 Respiratory 25 H 27 H 31 H Rate Blood Pressure 112/70 112/70 112/70 Blood Pressure [Left] O2 Sat by Pulse 93 88 92 Oximetry 04/21/21 04/21/21 04/21/21 07:15 08:47 09:05 Pulse Rate 95 H Respiratory 22 22 Rate Blood Pressure Blood Pressure 125/74 [Left] O2 Sat by Pulse 94 90 91 Oximetry Constitutional: no acute distress, other (on hiflo 100%) Eyes: non-icteric, other (sl injected) ENT: oropharynx moist, other (white plaques on tongue) Ascultation: Bilateral: diminished breath sounds Cardiovascular: regular rate and rhythm Gastrointestinal: normoactive bowel sounds, soft, non-tender, non-distended Extremities: no cyanosis Psychiatric: anxious CBC and BMP: 04/19/21 04:19 04/20/21 05:28 ABG, PT/INR, D-dimer: PT/INR, D-dimer D-Dimer 262.48 ng/mlDDU (0-234) H 04/17/21 08:26 Abnormal lab findings: Abnormal Labs 04/16/21 04/16/21 04/16/21 11:42 11:42 11:42 WBC RDW 16.1 H Lymph % (Auto) 7.8 L Lymph # (Auto) 0.8 L Seg Neutrophils % 87.7 H Seg Neutrophils # 8.5 H D-Dimer 338.70 H Potassium BUN Creatinine Glucose 194 H POC Glucose Hemoglobin A1c Ferritin Lactate Dehydrogenase C-Reactive Protein Total Protein 8.4 H Albumin 3.8 L Coronavirus (PCR) 04/16/21 04/16/21 04/17/21 11:42 11:42 03:50 WBC RDW 16.0 H Lymph % (Auto) 7.7 L Lymph # (Auto) 0.6 L Seg Neutrophils % 89.8 H Seg Neutrophils # D-Dimer Potassium BUN Creatinine Glucose 195 H POC Glucose Hemoglobin A1c Ferritin 254.3 H Lactate Dehydrogenase 359 H C-Reactive Protein 15.20 H Total Protein Albumin Coronavirus (PCR) 04/17/21 04/17/21 04/17/21 03:50 08:26 08:26 WBC RDW Lymph % (Auto) Lymph # (Auto) Seg Neutrophils % Seg Neutrophils # D-Dimer 262.48 H Potassium BUN 20 H Creatinine 0.5 L Glucose 249 H 225 H POC Glucose Hemoglobin A1c Ferritin Lactate Dehydrogenase 338 H C-Reactive Protein 17.20 H Total Protein Albumin 3.2 L Coronavirus (PCR) 04/17/21 04/17/21 04/17/21 08:26 15:04 Unknown WBC RDW Lymph % (Auto) Lymph # (Auto) Seg Neutrophils % Seg Neutrophils # D-Dimer Potassium BUN 20 H Creatinine 0.5 L Glucose 246 H POC Glucose Hemoglobin A1c Ferritin 392.0 H Lactate Dehydrogenase C-Reactive Protein Total Protein 8.3 H Albumin 3.1 L Coronavirus (PCR) Positive A 04/18/21 04/18/21 04/18/21 05:06 05:06 07:36 WBC 11.6 H RDW 16.1 H Lymph % (Auto) Lymph # (Auto) Seg Neutrophils % Seg Neutrophils # D-Dimer Potassium 5.2 H BUN 22 H Creatinine 0.5 L Glucose 315 H POC Glucose Hemoglobin A1c 8.5 H Ferritin Lactate Dehydrogenase C-Reactive Protein Total Protein Albumin 3.3 L Coronavirus (PCR) 04/18/21 04/18/21 04/18/21 11:59 16:43 23:24 WBC RDW Lymph % (Auto) Lymph # (Auto) Seg Neutrophils % Seg Neutrophils # D-Dimer Potassium BUN Creatinine Glucose POC Glucose 284 H 273 H 290 H Hemoglobin A1c Ferritin Lactate Dehydrogenase C-Reactive Protein Total Protein Albumin Coronavirus (PCR) 04/19/21 04/19/21 04/19/21 04:19 04:19 08:10 WBC RDW 15.7 H Lymph % (Auto) Lymph # (Auto) Seg Neutrophils % Seg Neutrophils # D-Dimer Potassium BUN 27 H Creatinine 0.4 L Glucose 184 H POC Glucose 194 H Hemoglobin A1c Ferritin Lactate Dehydrogenase C-Reactive Protein Total Protein Albumin 3.1 L Coronavirus (PCR) 04/19/21 04/19/21 04/19/21 11:38 16:25 22:04 WBC RDW Lymph % (Auto) Lymph # (Auto) Seg Neutrophils % Seg Neutrophils # D-Dimer Potassium BUN Creatinine Glucose POC Glucose 224 H 297 H 251 H Hemoglobin A1c Ferritin Lactate Dehydrogenase C-Reactive Protein Total Protein Albumin Coronavirus (PCR) 04/20/21 04/20/21 04/20/21 05:28 08:43 16:21 WBC RDW Lymph % (Auto) Lymph # (Auto) Seg Neutrophils % Seg Neutrophils # D-Dimer Potassium BUN 27 H Creatinine Glucose 192 H POC Glucose 173 H 253 H Hemoglobin A1c Ferritin Lactate Dehydrogenase C-Reactive Protein Total Protein Albumin 3.0 L Coronavirus (PCR) 04/21/21 07:58 WBC RDW Lymph % (Auto) Lymph # (Auto) Seg Neutrophils % Seg Neutrophils # D-Dimer Potassium BUN Creatinine Glucose POC Glucose 140 H Hemoglobin A1c Ferritin Lactate Dehydrogenase C-Reactive Protein Total Protein Albumin Coronavirus (PCR)
[2021-04-21] MEDS: NYSTATIN 500,000 UNIT/5 ML ORAL LIQD PO SCH ×3 (13:34→22:15)
[2021-04-21] MEDS: REMDESIVIR 100 MG in SODIUM CHLORIDE 0.9% 250ML 250 ML IV SCH (21:47)
[2021-04-21] MEDS: INSULIN GLARGINE 100 UNITS/ML SUB-Q SCH (22:38)
[2021-04-21] MEDS: SODIUM CHLORIDE 0.9% 50 ML IVPB IV SCH (22:40)
[2021-04-22] MEDS: INSULIN LISPRO 100 UNIT/ML SUB-Q SCH ×4 (07:45→22:34)
--- NOTE | 2021-04-22 08:08 | Progress Note ---
Assessment and Plan - Patient Problems (1) Pneumonia due to SARS-associated coronavirus Current Visit: Yes Status: Acute (2) Acute hypoxemic respiratory failure Current Visit: Yes Status: Acute (3) Obesity hypoventilation syndrome Current Visit: Yes Status: Acute (4) Pneumonia Current Visit: Yes Status: Acute Qualifiers: Aspiration pneumonia type: unspecified Laterality: unspecified laterality Lung location: unspecified part of lung (5) Transaminitis Current Visit: No Status: Acute (6) Oral thrush Current Visit: Yes Status: Acute Subjective Interval history: awake , ftill on high flow o2 Objective Vital Signs - 12hr 04/21/21 04/21/21 04/21/21 20:41 20:42 21:00 Pulse Rate 67 Pulse Rate [ 78 Bilateral] Respiratory 25 H Rate Respiratory 27 H Rate [Bilateral ] Blood Pressure 109/67 Blood Pressure [Left] O2 Sat by Pulse 88 86 Oximetry 04/21/21 04/21/21 04/21/21 22:00 23:00 23:26 Pulse Rate 69 67 63 Pulse Rate [ Bilateral] Respiratory 29 H 32 H 26 H Rate Respiratory Rate [Bilateral ] Blood Pressure 104/65 109/61 109/61 Blood Pressure [Left] O2 Sat by Pulse 93 94 91 Oximetry 04/22/21 04/22/21 04/22/21 00:00 01:00 02:00 Pulse Rate 68 64 60 Pulse Rate [ Bilateral] Respiratory 27 H 26 H 23 Rate Respiratory Rate [Bilateral ] Blood Pressure 117/61 103/60 98/60 Blood Pressure [Left] O2 Sat by Pulse 93 97 98 Oximetry 04/22/21 04/22/21 04/22/21 03:00 04:00 05:00 Pulse Rate 87 63 72 Pulse Rate [ Bilateral] Respiratory 33 H 25 H 29 H Rate Respiratory Rate [Bilateral ] Blood Pressure 98/58 101/66 95/62 Blood Pressure [Left] O2 Sat by Pulse 84 92 93 Oximetry 04/22/21 04/22/21 06:59 07:40 Pulse Rate 65 Pulse Rate [ Bilateral] Respiratory 25 H Rate Respiratory Rate [Bilateral ] Blood Pressure Blood Pressure 100/59 [Left] O2 Sat by Pulse 93 93 Oximetry Constitutional: no acute distress, other (on hiflo 100%) Eyes: non-icteric, other (sl injected) ENT: oropharynx moist, other (white plaques on tongue) Ascultation: Bilateral: diminished breath sounds Cardiovascular: regular rate and rhythm Gastrointestinal: normoactive bowel sounds, soft, non-tender, non-distended Extremities: no cyanosis Psychiatric: anxious CBC and BMP: 04/19/21 04:19 04/20/21 05:28 ABG, PT/INR, D-dimer: PT/INR, D-dimer D-Dimer 262.48 ng/mlDDU (0-234) H 04/17/21 08:26 Abnormal lab findings: Abnormal Labs 04/16/21 04/16/21 04/16/21 11:42 11:42 11:42 WBC RDW 16.1 H Lymph % (Auto) 7.8 L Lymph # (Auto) 0.8 L Seg Neutrophils % 87.7 H Seg Neutrophils # 8.5 H D-Dimer 338.70 H Potassium BUN Creatinine Glucose 194 H POC Glucose Hemoglobin A1c Ferritin Lactate Dehydrogenase C-Reactive Protein Total Protein 8.4 H Albumin 3.8 L Coronavirus (PCR) 04/16/21 04/16/21 04/17/21 11:42 11:42 03:50 WBC RDW 16.0 H Lymph % (Auto) 7.7 L Lymph # (Auto) 0.6 L Seg Neutrophils % 89.8 H Seg Neutrophils # D-Dimer Potassium BUN Creatinine Glucose 195 H POC Glucose Hemoglobin A1c Ferritin 254.3 H Lactate Dehydrogenase 359 H C-Reactive Protein 15.20 H Total Protein Albumin Coronavirus (PCR) 04/17/21 04/17/21 04/17/21 03:50 08:26 08:26 WBC RDW Lymph % (Auto) Lymph # (Auto) Seg Neutrophils % Seg Neutrophils # D-Dimer 262.48 H Potassium BUN 20 H Creatinine 0.5 L Glucose 249 H 225 H POC Glucose Hemoglobin A1c Ferritin Lactate Dehydrogenase 338 H C-Reactive Protein 17.20 H Total Protein Albumin 3.2 L Coronavirus (PCR) 04/17/21 04/17/21 04/17/21 08:26 15:04 Unknown WBC RDW Lymph % (Auto) Lymph # (Auto) Seg Neutrophils % Seg Neutrophils # D-Dimer Potassium BUN 20 H Creatinine 0.5 L Glucose 246 H POC Glucose Hemoglobin A1c Ferritin 392.0 H Lactate Dehydrogenase C-Reactive Protein Total Protein 8.3 H Albumin 3.1 L Coronavirus (PCR) Positive A 04/18/21 04/18/21 04/18/21 05:06 05:06 07:36 WBC 11.6 H RDW 16.1 H Lymph % (Auto) Lymph # (Auto) Seg Neutrophils % Seg Neutrophils # D-Dimer Potassium 5.2 H BUN 22 H Creatinine 0.5 L Glucose 315 H POC Glucose Hemoglobin A1c 8.5 H Ferritin Lactate Dehydrogenase C-Reactive Protein Total Protein Albumin 3.3 L Coronavirus (PCR) 04/18/21 04/18/21 04/18/21 11:59 16:43 23:24 WBC RDW Lymph % (Auto) Lymph # (Auto) Seg Neutrophils % Seg Neutrophils # D-Dimer Potassium BUN Creatinine Glucose POC Glucose 284 H 273 H 290 H Hemoglobin A1c Ferritin Lactate Dehydrogenase C-Reactive Protein Total Protein Albumin Coronavirus (PCR) 04/19/21 04/19/21 04/19/21 04:19 04:19 08:10 WBC RDW 15.7 H Lymph % (Auto) Lymph # (Auto) Seg Neutrophils % Seg Neutrophils # D-Dimer Potassium BUN 27 H Creatinine 0.4 L Glucose 184 H POC Glucose 194 H Hemoglobin A1c Ferritin Lactate Dehydrogenase C-Reactive Protein Total Protein Albumin 3.1 L Coronavirus (PCR) 04/19/21 04/19/21 04/19/21 11:38 16:25 22:04 WBC RDW Lymph % (Auto) Lymph # (Auto) Seg Neutrophils % Seg Neutrophils # D-Dimer Potassium BUN Creatinine Glucose POC Glucose 224 H 297 H 251 H Hemoglobin A1c Ferritin Lactate Dehydrogenase C-Reactive Protein Total Protein Albumin Coronavirus (PCR) 04/20/21 04/20/21 04/20/21 05:28 08:43 16:21 WBC RDW Lymph % (Auto) Lymph # (Auto) Seg Neutrophils % Seg Neutrophils # D-Dimer Potassium BUN 27 H Creatinine Glucose 192 H POC Glucose 173 H 253 H Hemoglobin A1c Ferritin Lactate Dehydrogenase C-Reactive Protein Total Protein Albumin 3.0 L Coronavirus (PCR) 04/21/21 04/21/21 04/21/21 07:58 12:05 16:08 WBC RDW Lymph % (Auto) Lymph # (Auto) Seg Neutrophils % Seg Neutrophils # D-Dimer Potassium BUN Creatinine Glucose POC Glucose 140 H 252 H 214 H Hemoglobin A1c Ferritin Lactate Dehydrogenase C-Reactive Protein Total Protein Albumin Coronavirus (PCR) 04/21/21 21:42 WBC RDW Lymph % (Auto) Lymph # (Auto) Seg Neutrophils % Seg Neutrophils # D-Dimer Potassium BUN Creatinine Glucose POC Glucose 162 H Hemoglobin A1c Ferritin Lactate Dehydrogenase C-Reactive Protein Total Protein Albumin Coronavirus (PCR)
[2021-04-22] MEDS: HEPARIN 5,000 UNIT/1 ML VIAL SUB-Q SCH ×2 (09:52→22:24)
[2021-04-22] MEDS: dexAMETHasone 4 MG/ML VIAL IV SCH (09:53)
[2021-04-22] MEDS: ASCORBIC ACID 250 MG TAB PO SCH ×2 (09:53→22:25)
[2021-04-22] MEDS: ZINC SULFATE 220 MG CAP PO SCH ×2 (09:53→22:26)
[2021-04-22] MEDS: FAMOTIDINE 20 MG TAB PO SCH ×2 (09:53→22:26)
[2021-04-22] MEDS: CHOLECALCIFEROL (VIT D3) 1000 UNIT (25 mcg) TAB PO SCH (09:53)
[2021-04-22] MEDS: NYSTATIN 500,000 UNIT/5 ML ORAL LIQD PO SCH ×4 (09:53→22:26)
--- NOTE | 2021-04-22 14:27 | Progress Note ---
Assessment and Plan Assessment and plan: 50 YO Female with GERD, Obesity, HLD presents to ED for evaluation. Patient reports "I cannot breathe". Patient states that she has experienced subjective fever, shortness of breath, malaise, body aches, dry cough, and shortness of breath over the past 1 week with progressively worsening symptoms over the same timeframe. EMS was notified and upon arrival the patient was found to be in distress and subsequent transported to [facility] for further care and evaluation of the aforementioned symptoms. The patient was seen and evaluated in the emergency department. All lab and imaging studies reviewed. Patient found to have a pulse oximetry of 86% with exertion on room air which is consistent with acute hypoxemic respiratory failure. Patient with chest x-ray which revealed bilateral pneumonia. Patient admitted to medical floor and initiated him on pneumonia protocol as well as coronavirus protocol. Patient knowledges fever but denies chills, chest pain, palpitation, skin rash, recent ill contacts, or known exposure to COVID-19. Prior admission on 01/21/2017 reviewed. All medication listed at time of admission has been reconciled. Patient is unvaccinated for coronavirus infection. CXR: Bilateral Pneumonia 04/17: Patient seen and examined, still uncomfortable with Hypoxic respiratory failure and on oxygen, will continue to steroids therapy, start patient on Remdesivir, ID consulted, Pulmonary consult placed. 04/18: Patient seen and examined, she is currently being changed to High flow NC due to worsening HYPOXIA, will transfer to IMCU, Pulmonary and ID following. Will also give a dose of Lasix today. Monitor Inflammatory markers. 04/19: Patient seen and examined still on high flow due to hypoxia. Appears a bit more comfortable today than yesterday. Cough has decreased in frequency. We will continue high dose Dexameathasone to complete 10 days. continue on Remdesivir 200 mg IV q day x 1 followed by 100 mg IV q day x 4 days -Obtain q48-72h inflammatory markers - ferritin, Ddimer, CRP, LDH Will also give lasix daily for the next 3 days and monitor renal function. Family updated. Continue prone positioning as tolerated 04/20: Patient has some desaturation episodes yesterday was placed on BiPAP. Discussed with ICU team for bed availability for patient to be transferred up. Continue prone position as tolerated. 04/21: Patient remains with profound hypoxia secondary to COVID pneumonia. -Continue steroids -Continue remedesir -S/P Actmera 04/22: Patient remains on steroids and remdesivir. ABG shows persistent hypoxia. We will continue current management additional trial of Lasix for the next few days to see if any improvement. Monitor inflammatory markers as needed. Prognosis is guarded remains on high flow (1) Acute hypoxemic respiratory failure Current Visit: Yes Status: Acute Plan to address problem: Supplemental oxygen, chest x-ray, pulse oximetry, nebulizer therapy, proposition while in bed, noninvasive positive pressure ventilation as clinically indicated. If patient is unable to maintain pulse oximetry will consider high flow supplemental oxygen. (2) Pneumonia Current Visit: Yes Status: Acute Plan to address problem: Pneumonia protocol: Chest x-ray, CBC, CMP, IV antibiotic therapy, blood culture. (3) 2019 novel coronavirus infection Current Visit: Yes Status: Acute Plan to address problem: Coronavirus protocol: IV antibiotic therapy, IV steroid therapy, vitamin C therapy, vitamin D therapy, zinc therapy, prone positioning while in bed, nebulizer therapy, supplemental oxygen, pulse oximetry. Prophylactic anticoagulation (4) Obesity hypoventilation syndrome Current Visit: Yes Status: Acute Plan to address problem: Balanced diet, increase physical activity discharge, outpatient pulmonary follow-up for sleep study. (5) DVT prophylaxis Current Visit: Yes Status: Acute Plan to address problem: SCD to bilateral lower extremities while in bed, prophylactic anticoagulation The high probability of a clinically significant, sudden or life threatening deterioration of the [Pulmonary] system(s) required my full and direct attention, intervention and personal management. The aggregate critical care time was [35] minutes. This time is in addition to time spent performing reported procedures but includes the following: [x] Data Review and interpretation [x] Patient assessment and monitoring of vital signs [x] Documentation [x] Medication orders and management History Interval history: Patient is seen and examined, still with shortness of breath, remains on high flow unfortunately not showing improvement Hospitalist Physical - Physical exam Narrative exam: General appearance: Absent: mild distress, Continues on high flow, shallow breathing - EENT Eyes: Present: PERRL ENT: hearing intact, clear oral mucosa - Neck Neck: Present: supple, normal ROM - Respiratory Respiratory effort: normal Respiratory: bilateral: Diminished - Cardiovascular Heart Sounds: Present: S1 & S2. Absent: rub, click - Extremities Extremities: pulses symmetrical, No edema Peripheral Pulses: within normal limits - Abdominal General gastrointestinal: Present: soft, non-tender, non-distended, normal bowel sounds Female genitourinary: Present: normal - Integumentary Integumentary: Present: clear, warm, dry - Musculoskeletal Musculoskeletal: gait normal, strength equal bilaterally - Psychiatric Psychiatric: appropriate mood/affect, intact judgment & insight - Neurologic Neurologic: CNII-XII intact, moves all extremities - Constitutional Vitals: Temp Pulse Resp BP Pulse Ox 98.9 F 89 22 113/59 94 04/22/21 12:29 04/22/21 12:29 04/22/21 12:29 04/22/21 12:29 04/22/21 14:00 General appearance: Absent: no acute distress, mild distress Results - Labs CBC & Chem 7: 04/19/21 04:19 04/20/21 05:28 Labs: Laboratory Last Values WBC 9.1 K/mm3 (4.5-11.0) 04/19/21 04:19 RBC 4.11 M/mm3 (3.65-5.03) 04/19/21 04:19 Hgb 12.3 gm/dl (10.1-14.3) 04/19/21 04:19 Hct 36.2 % (30.3-42.9) 04/19/21 04:19 MCV 88 fl (79-97) 04/19/21 04:19 MCH 30 pg (28-32) 04/19/21 04:19 MCHC 34 % (30-34) 04/19/21 04:19 RDW 15.7 % (13.2-15.2) H 04/19/21 04:19 Plt Count 320 K/mm3 (140-440) 04/19/21 04:19 Lymph % (Auto) 7.7 % (13.4-35.0) L 04/17/21 03:50 [place] % (Auto) 2.5 % (0.0-7.3) 04/17/21 03:50 Eos % (Auto) 0.0 % (0.0-4.3) 04/17/21 03:50 Baso % (Auto) 0.0 % (0.0-1.8) 04/17/21 03:50 Lymph # (Auto) 0.6 K/mm3 (1.2-5.4) L 04/17/21 03:50 [place] # (Auto) 0.2 K/mm3 (0.0-0.8) 04/17/21 03:50 Eos # (Auto) 0.0 K/mm3 (0.0-0.4) 04/17/21 03:50 Baso # (Auto) 0.0 K/mm3 (0.0-0.1) 04/17/21 03:50 Seg Neutrophils % 89.8 % (40.0-70.0) H 04/17/21 03:50 Seg Neutrophils # 6.7 K/mm3 (1.8-7.7) 04/17/21 03:50 D-Dimer 262.48 ng/mlDDU (0-234) H 04/17/21 08:26 ABG pH 7.457 (7.320-7.450) H 04/22/21 08:37 POC ABG pCO2 40.7 mmHg (32.0-48.0) 04/22/21 08:37 POC ABG pO2 49.4 mmHg (83-108) L 04/22/21 08:37 POC ABG HCO3 28.1 04/22/21 08:37 ABG O2 Saturation 85.9 (0-100) 04/22/21 08:37 POC ABG Base Excess 3.9 04/22/21 08:37 ABG Hemoglobin 14.5 (12.0-17.5) 04/22/21 08:37 ABG Oxyhemoglobin 85.6 (94-98) L 04/22/21 08:37 ABG Methemoglobin 0 (0.0-1.5) 04/22/21 08:37 ABG Sodium 138.6 mmol/L (136.0-145.0) 04/22/21 08:37 ABG Potassium 3.8 mmol/L (3.40-4.50) 04/22/21 08:37 ABG Chloride 102.0 mmol/L (98-107) 04/22/21 08:37 ABG Glucose 121 mg/dL (65-95) H 04/22/21 08:37 Carboxyhemoglobin 0.3 (0.5-1.5) L 04/22/21 08:37 FiO2 % 100.0 04/22/21 08:37 Sodium 139 mmol/L (137-145) 04/20/21 05:28 Potassium 5.0 mmol/L (3.6-5.0) 04/20/21 05:28 Chloride 100.2 mmol/L (98-107) 04/20/21 05:28 Carbon Dioxide 29 mmol/L (22-30) 04/20/21 05:28 Anion Gap 15 mmol/L 04/20/21 05:28 BUN 27 mg/dL (7-17) H 04/20/21 05:28 Creatinine 0.6 mg/dL (0.6-1.2) 04/20/21 05:28 Estimated GFR > 60 ml/min 04/20/21 05:28 BUN/Creatinine Ratio 45 % 04/20/21 05:28 Glucose 192 mg/dL (65-100) H 04/20/21 05:28 POC Glucose 227 mg/dL (70-105) H 04/22/21 12:01 Hemoglobin A1c 8.5 % (4-6) H 04/18/21 07:36 Calcium 8.9 mg/dL (8.4-10.2) 04/20/21 05:28 Ferritin 392.0 ng/mL (10.0-200.0) H 04/17/21 08:26 Total Bilirubin 0.30 mg/dL (0.1-1.2) 04/20/21 05:28 AST 21 units/L (5-40) 04/20/21 05:28 ALT 22 units/L (7-56) 04/20/21 05:28 Alkaline Phosphatase 52 units/L (35-129) 04/20/21 05:28 Lactate Dehydrogenase 338 units/L (91-180) H 04/17/21 08:26 C-Reactive Protein 17.20 mg/dL (0.00-1.30) H 04/17/21 08:26 Total Protein 7.5 g/dL (6.3-8.2) 04/20/21 05:28 Albumin 3.0 g/dL (3.9-5) L 04/20/21 05:28 Albumin/Globulin Ratio 0.7 % 04/20/21 05:28 Procalcitonin < 0.05 ng/mL (<0.15) 04/17/21 08:26 Arterial Blood Glucose 121 mg/dL (65-95) H 04/22/21 08:37 Coronavirus (PCR) Positive (Negative) A 04/17/21 Unknown Active Medications - Current Medications Current Medications: Generic Name Dose Route Start Last Admin Trade Name Freq PRN Reason Stop Dose Admin Acetaminophen 650 mg 04/16/21 14:00 04/18/21 12:15 Acetaminophen 325 Mg Tab PO 650 mg Q4H PRN Administration Pain MILD(1-3)/Fever >100.5/[place] Albuterol 2.5 mg 04/16/21 13:39 04/21/21 20:39 Albuterol 2.5 Mg/3 Ml Nebu IH 2.5 mg Q4HRT PRN Administration Shortness Of Breath Ascorbic Acid 250 mg 04/20/21 10:00 04/22/21 09:53 Ascorbic Acid 250 Mg Tab PO 250 mg BID TUTU Administration Cholecalciferol 1,000 unit 04/17/21 10:00 04/22/21 09:53 Cholecalciferol (Vit D3) 1000 Unit (25 Mcg) Tab PO 1,000 unit QDAY TUTU Administration Dexamethasone 8 mg 04/18/21 10:00 04/22/21 09:53 Dexamethasone 4 Mg/Ml Vial IV 04/27/21 10:01 8 mg DAILY TUTU Administration Dextrose 50 ml 04/18/21 07:30 Dextrose 50% In Water (25gm) 50 Ml Syringe IV Q30MIN PRN Hypoglycemia Protocol Famotidine 20 mg 04/16/21 22:00 04/22/21 09:53 Famotidine 20 Mg Tab PO 20 mg BID TUTU Administration Heparin Sodium (Porcine) 5,000 unit 04/16/21 22:00 04/22/21 09:52 Heparin 5,000 Unit/1 Ml Vial SUB-Q 5,000 unit Q12HR TUTU Administration Hydromorphone HCl 0.5 mg 04/16/21 14:00 04/20/21 19:48 Hydromorphone 1 Mg/1 Ml Inj IV 0.5 mg Q12H PRN Administration Pain , Severe (7-10) Insulin Glargine 20 units 04/19/21 22:00 04/21/21 22:38 Insulin Glargine 100 Units/Ml SUB-Q 20 units QHS TUTU Administration Insulin Human Lispro 0 unit 04/18/21 08:00 04/22/21 12:16 Insulin Lispro 100 Unit/Ml SUB-Q 4 unit ACHS TUTU Administration Protocol Nystatin 500,000 unit 04/21/21 14:00 04/22/21 14:11 Nystatin 500,000 Unit/5 Ml Oral Liqd PO 500,000 unit QID TUTU Administration Ondansetron HCl 4 mg 04/16/21 14:00 Ondansetron 4 Mg/2 Ml Inj IV Q8H PRN Nausea And Vomiting Oxycodone/Acetaminophen 1 tab 04/16/21 14:00 04/20/21 22:01 Oxycodone /Acetaminophen 5-325mg Tab PO 1 tab Q12H PRN Administration Pain, Moderate (4-6) Sodium Chloride 10 ml 04/16/21 22:00 04/22/21 09:53 Sodium Chloride 0.9% 10 Ml Flush Syringe IV 10 ml BID TUTU Administration Sodium Chloride 10 ml 04/16/21 13:39 Sodium Chloride 0.9% 10 Ml Flush Syringe IV PRN PRN LINE FLUSH Zinc Sulfate 220 mg 04/16/21 22:00 04/22/21 09:53 Zinc Sulfate 220 Mg Cap PO 220 mg BID TUTU Administration
--- NOTE | 2021-04-22 14:29 | Electrocardiograph Report ---
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
--- NOTE | 2021-04-22 16:31 | Progress Note ---
Assessment and Plan Cultures: Blood culture no growth so far Covid PCR: Positive A/P: 50-year-old female past medical history obesity, GERD, hyperlipidemia pr esents with COVID-19 pneumonia #Severe COVID-19 pneumonia: Patient presented with a week of symptoms, chest x- ray with diffuse bilateral infiltrates, admission O2 sats on room air. Inflammatory markers elevated #Acute hypoxemic respiratory failure: Likely secondary to COVID-19 infection. Currently on high flow nasal cannula #Obesity Recs: -Methylprednisolone, steroids per primary. Complete 10 days. -Remdesivir 200 mg IV q day x 1 followed by 100 mg IV q day x 4 days -Obtain q48-72h inflammatory markers - ferritin, Ddimer, CRP, LDH -s/p Actemra once -Anticoagulation per hospital protocol -Proning as able Thank you for the consult, we will continue to follow. Nina Winkler MD [facility] O: [phone] F: [phone] Subjective Date of service: 04/22/21 Interval history: Afebrile, no acute change. Currently on high flow nasal cannula. Objective - Exam Narrative Exam: Physical exam deferred to reduce risk of transmission of COVID-19. Please refer to primary team's note. - Constitutional Vitals: Vital Signs Temp Pulse Resp BP Pulse Ox 98.9 F 89 22 113/59 94 04/22/21 12:29 04/22/21 12:29 04/22/21 12:29 04/22/21 12:29 04/22/21 14:00 Temperature -Last 24 Hours Temperature 98.9 F Temperature 98.2 F Temperature 98.7 F - Labs CBC & Chem 7: 04/19/21 04:19 04/20/21 05:28 Labs: Abnormal lab results 04/21/21 04/21/21 04/22/21 Range/Units 16:08 21:42 08:37 ABG pH 7.457 H (7.320-7.450) POC ABG pO2 49.4 L (83-108) mmHg ABG Oxyhemoglobin 85.6 L (94-98) ABG Glucose 121 H (65-95) mg/dL Carboxyhemoglobin 0.3 L (0.5-1.5) POC Glucose 214 H 162 H (70-105) mg/dL Arterial Blood Glucose 121 H (65-95) mg/dL 04/22/21 Range/Units 12:01 ABG pH (7.320-7.450) POC ABG pO2 (83-108) mmHg ABG Oxyhemoglobin (94-98) ABG Glucose (65-95) mg/dL Carboxyhemoglobin (0.5-1.5) POC Glucose 227 H (70-105) mg/dL Arterial Blood Glucose (65-95) mg/dL
[2021-04-22] MEDS: INSULIN GLARGINE 100 UNITS/ML SUB-Q SCH (23:12)
[2021-04-23 05:20] LABS: Hematocrit 42.5 % (30.3-42.9); Hemoglobin 14.2 gm/dl (10.1-14.3); Mean Corpuscular HGB Conc 33 % (30-34); Mean Corpuscular Volume 88 fl (79-97); Platelet Count 405 K/mm3 (140-440); Red Blood Count 4.84 M/mm3 (3.65-5.03); Red Cell Distribution Width 15.7 % (13.2-15.2)
[2021-04-23 05:35] LABS: Alanine Aminotransferase 44 units/L (7-56); Albumin 3.3 g/dL (3.9-5); Blood Urea Nitrogen 23 mg/dL (7-17); Calcium 8.7 mg/dL (8.4-10.2); Hemolysis Index 12
[2021-04-23 05:36] LABS: BUN/Creatinine Ratio 33
[2021-04-23] MEDS ORDERED: SODIUM CHLORIDE 0.9% 1000 ML 1,000 ML IV ONE (06:31)
[2021-04-23] MEDS: INSULIN LISPRO 100 UNIT/ML SUB-Q SCH ×4 (07:53→23:14)
--- NOTE | 2021-04-23 11:10 | Progress Note ---
Assessment and Plan 50 y/o female with acute respiratory failure secondary to COVID19 pneumonia. 04/23/21: Prone as tolerated. No lasix today. Continue decadron. Guarded prognosis. High risk for intubation and high mortality with intubation. 04/19/21: Prone as tolerated during the day and sleep prone at night. Continue IV remdesivir and steroids. Did get actemra. Guarded prognosis. 1. Daily net negative state 2. Prone if possible 3. IV remdesivir. 4. Should be a candidate for Actemra 5. IV steroids 6. Guarded Prognosis Subjective Date of service: 04/23/21 Interval history: Still boarding in the ED as no Unit beds available. Patient remains on HFNC with NRB mask sats only in the mid 90's. Objective Vital Signs - 12hr 04/23/21 04/23/21 04/23/21 00:09 00:15 00:31 Pulse Rate 69 68 75 Respiratory 26 H 28 H 24 Rate Blood Pressure 98/64 98/64 105/66 O2 Sat by Pulse 91 91 Oximetry 04/23/21 04/23/21 04/23/21 01:01 01:15 01:31 Pulse Rate 68 62 68 Respiratory 25 H 28 H 29 H Rate Blood Pressure 94/53 94/53 90/48 O2 Sat by Pulse 93 94 94 Oximetry 04/23/21 04/23/21 04/23/21 01:45 02:01 02:10 Pulse Rate 68 74 Respiratory 27 H 24 Rate Blood Pressure 90/48 107/64 O2 Sat by Pulse 95 90 93 Oximetry 04/23/21 04/23/21 04/23/21 02:45 03:01 03:11 Pulse Rate 68 67 68 Respiratory 27 H 24 25 H Rate Blood Pressure 112/68 98/64 98/64 O2 Sat by Pulse 93 93 90 Oximetry 04/23/21 04/23/21 04/23/21 03:21 03:41 03:51 Pulse Rate 65 68 67 Respiratory 25 H 25 H 25 H Rate Blood Pressure 98/64 98/64 98/64 O2 Sat by Pulse 92 92 94 Oximetry 04/23/21 04/23/21 04/23/21 04:01 04:11 04:21 Pulse Rate 67 66 69 Respiratory 24 21 24 Rate Blood Pressure 101/60 105/63 105/63 O2 Sat by Pulse 93 92 94 Oximetry 04/23/21 04/23/21 04/23/21 04:31 04:41 04:51 Pulse Rate 72 68 66 Respiratory 21 23 25 H Rate Blood Pressure 103/59 101/60 101/60 O2 Sat by Pulse 91 93 94 Oximetry 04/23/21 04/23/21 04/23/21 05:01 05:51 06:11 Pulse Rate 76 67 67 Respiratory 32 H 25 H 26 H Rate Blood Pressure 101/60 94/56 98/62 O2 Sat by Pulse 93 92 90 Oximetry 04/23/21 04/23/21 04/23/21 06:21 06:31 06:41 Pulse Rate 70 84 91 H Respiratory 26 H 28 H 22 Rate Blood Pressure 98/62 97/63 104/69 O2 Sat by Pulse 91 90 91 Oximetry 04/23/21 07:01 Pulse Rate 67 Respiratory Rate Blood Pressure 104/56 O2 Sat by Pulse 93 Oximetry Constitutional: no acute distress, other (on hiflo 100%) Eyes: non-icteric, other (sl injected) ENT: oropharynx moist, other (white plaques on tongue) Ascultation: Bilateral: diminished breath sounds Cardiovascular: regular rate and rhythm Gastrointestinal: normoactive bowel sounds, soft, non-tender, non-distended Extremities: no cyanosis Psychiatric: anxious CBC and BMP: 04/23/21 04:52 04/23/21 04:52 ABG, PT/INR, D-dimer: ABG ABG pH 7.457 (7.320-7.450) H 04/22/21 08:37 POC ABG pCO2 40.7 mmHg (32.0-48.0) 04/22/21 08:37 POC ABG pO2 49.4 mmHg (83-108) L 04/22/21 08:37 POC ABG HCO3 28.1 04/22/21 08:37 ABG O2 Saturation 85.9 (0-100) 04/22/21 08:37 PT/INR, D-dimer D-Dimer 262.48 ng/mlDDU (0-234) H 04/17/21 08:26 Abnormal lab findings: Abnormal Labs 04/16/21 04/16/21 04/16/21 11:42 11:42 11:42 WBC RDW 16.1 H Lymph % (Auto) 7.8 L Lymph # (Auto) 0.8 L Seg Neutrophils % 87.7 H Seg Neutrophils # 8.5 H D-Dimer 338.70 H ABG pH POC ABG pO2 ABG Oxyhemoglobin ABG Glucose Carboxyhemoglobin Sodium Potassium Chloride BUN Creatinine Glucose 194 H POC Glucose Hemoglobin A1c Ferritin AST Lactate Dehydrogenase C-Reactive Protein Total Protein 8.4 H Albumin 3.8 L Arterial Blood Glucose Coronavirus (PCR) 04/16/21 04/16/21 04/17/21 11:42 11:42 03:50 WBC RDW 16.0 H Lymph % (Auto) 7.7 L Lymph # (Auto) 0.6 L Seg Neutrophils % 89.8 H Seg Neutrophils # D-Dimer ABG pH POC ABG pO2 ABG Oxyhemoglobin ABG Glucose Carboxyhemoglobin Sodium Potassium Chloride BUN Creatinine Glucose 195 H POC Glucose Hemoglobin A1c Ferritin 254.3 H AST Lactate Dehydrogenase 359 H C-Reactive Protein 15.20 H Total Protein Albumin Arterial Blood Glucose Coronavirus (PCR) 04/17/21 04/17/21 04/17/21 03:50 08:26 08:26 WBC RDW Lymph % (Auto) Lymph # (Auto) Seg Neutrophils % Seg Neutrophils # D-Dimer 262.48 H ABG pH POC ABG pO2 ABG Oxyhemoglobin ABG Glucose Carboxyhemoglobin Sodium Potassium Chloride BUN 20 H Creatinine 0.5 L Glucose 249 H 225 H POC Glucose Hemoglobin A1c Ferritin AST Lactate Dehydrogenase 338 H C-Reactive Protein 17.20 H Total Protein Albumin 3.2 L Arterial Blood Glucose Coronavirus (PCR) 04/17/21 04/17/21 04/17/21 08:26 15:04 Unknown WBC RDW Lymph % (Auto) Lymph # (Auto) Seg Neutrophils % Seg Neutrophils # D-Dimer ABG pH POC ABG pO2 ABG Oxyhemoglobin ABG Glucose Carboxyhemoglobin Sodium Potassium Chloride BUN 20 H Creatinine 0.5 L Glucose 246 H POC Glucose Hemoglobin A1c Ferritin 392.0 H AST Lactate Dehydrogenase C-Reactive Protein Total Protein 8.3 H Albumin 3.1 L Arterial Blood Glucose Coronavirus (PCR) Positive A 04/18/21 04/18/21 04/18/21 05:06 05:06 07:36 WBC 11.6 H RDW 16.1 H Lymph % (Auto) Lymph # (Auto) Seg Neutrophils % Seg Neutrophils # D-Dimer ABG pH POC ABG pO2 ABG Oxyhemoglobin ABG Glucose Carboxyhemoglobin Sodium Potassium 5.2 H Chloride BUN 22 H Creatinine 0.5 L Glucose 315 H POC Glucose Hemoglobin A1c 8.5 H Ferritin AST Lactate Dehydrogenase C-Reactive Protein Total Protein Albumin 3.3 L Arterial Blood Glucose Coronavirus (PCR) 04/18/21 04/18/21 04/18/21 11:59 16:43 23:24 WBC RDW Lymph % (Auto) Lymph # (Auto) Seg Neutrophils % Seg Neutrophils # D-Dimer ABG pH POC ABG pO2 ABG Oxyhemoglobin ABG Glucose Carboxyhemoglobin Sodium Potassium Chloride BUN Creatinine Glucose POC Glucose 284 H 273 H 290 H Hemoglobin A1c Ferritin AST Lactate Dehydrogenase C-Reactive Protein Total Protein Albumin Arterial Blood Glucose Coronavirus (PCR) 04/19/21 04/19/21 04/19/21 04:19 04:19 08:10 WBC RDW 15.7 H Lymph % (Auto) Lymph # (Auto) Seg Neutrophils % Seg Neutrophils # D-Dimer ABG pH POC ABG pO2 ABG Oxyhemoglobin ABG Glucose Carboxyhemoglobin Sodium Potassium Chloride BUN 27 H Creatinine 0.4 L Glucose 184 H POC Glucose 194 H Hemoglobin A1c Ferritin AST Lactate Dehydrogenase C-Reactive Protein Total Protein Albumin 3.1 L Arterial Blood Glucose Coronavirus (PCR) 04/19/21 04/19/21 04/19/21 11:38 16:25 22:04 WBC RDW Lymph % (Auto) Lymph # (Auto) Seg Neutrophils % Seg Neutrophils # D-Dimer ABG pH POC ABG pO2 ABG Oxyhemoglobin ABG Glucose Carboxyhemoglobin Sodium Potassium Chloride BUN Creatinine Glucose POC Glucose 224 H 297 H 251 H Hemoglobin A1c Ferritin AST Lactate Dehydrogenase C-Reactive Protein Total Protein Albumin Arterial Blood Glucose Coronavirus (PCR) 04/20/21 04/20/21 04/20/21 05:28 08:43 16:21 WBC RDW Lymph % (Auto) Lymph # (Auto) Seg Neutrophils % Seg Neutrophils # D-Dimer ABG pH POC ABG pO2 ABG Oxyhemoglobin ABG Glucose Carboxyhemoglobin Sodium Potassium Chloride BUN 27 H Creatinine Glucose 192 H POC Glucose 173 H 253 H Hemoglobin A1c Ferritin AST Lactate Dehydrogenase C-Reactive Protein Total Protein Albumin 3.0 L Arterial Blood Glucose Coronavirus (PCR) 04/21/21 04/21/21 04/21/21 07:58 12:05 16:08 WBC RDW Lymph % (Auto) Lymph # (Auto) Seg Neutrophils % Seg Neutrophils # D-Dimer ABG pH POC ABG pO2 ABG Oxyhemoglobin ABG Glucose Carboxyhemoglobin Sodium Potassium Chloride BUN Creatinine Glucose POC Glucose 140 H 252 H 214 H Hemoglobin A1c Ferritin AST Lactate Dehydrogenase C-Reactive Protein Total Protein Albumin Arterial Blood Glucose Coronavirus (PCR) 04/21/21 04/22/21 04/22/21 21:42 08:37 12:01 WBC RDW Lymph % (Auto) Lymph # (Auto) Seg Neutrophils % Seg Neutrophils # D-Dimer ABG pH 7.457 H POC ABG pO2 49.4 L ABG Oxyhemoglobin 85.6 L ABG Glucose 121 H Carboxyhemoglobin 0.3 L Sodium Potassium Chloride BUN Creatinine Glucose POC Glucose 162 H 227 H Hemoglobin A1c Ferritin AST Lactate Dehydrogenase C-Reactive Protein Total Protein Albumin Arterial Blood Glucose 121 H Coronavirus (PCR) 04/22/21 04/22/21 04/23/21 16:26 22:23 04:52 WBC RDW 15.7 H Lymph % (Auto) Lymph # (Auto) Seg Neutrophils % Seg Neutrophils # D-Dimer ABG pH POC ABG pO2 ABG Oxyhemoglobin ABG Glucose Carboxyhemoglobin Sodium Potassium Chloride BUN Creatinine Glucose POC Glucose 200 H 136 H Hemoglobin A1c Ferritin AST Lactate Dehydrogenase C-Reactive Protein Total Protein Albumin Arterial Blood Glucose Coronavirus (PCR) 04/23/21 04:52 WBC RDW Lymph % (Auto) Lymph # (Auto) Seg Neutrophils % Seg Neutrophils # D-Dimer ABG pH POC ABG pO2 ABG Oxyhemoglobin ABG Glucose Carboxyhemoglobin Sodium 136 L Potassium Chloride 97.7 L BUN 23 H Creatinine Glucose 101 H POC Glucose Hemoglobin A1c Ferritin AST 46 H Lactate Dehydrogenase C-Reactive Protein Total Protein Albumin 3.3 L Arterial Blood Glucose Coronavirus (PCR)
[2021-04-23] MEDS: dexAMETHasone 4 MG/ML VIAL IV SCH (11:24)
[2021-04-23] MEDS: CHOLECALCIFEROL (VIT D3) 1000 UNIT (25 mcg) TAB PO SCH (11:25)
[2021-04-23] MEDS: ASCORBIC ACID 250 MG TAB PO SCH ×2 (11:25→23:18)
[2021-04-23] MEDS: HEPARIN 5,000 UNIT/1 ML VIAL SUB-Q SCH ×2 (11:25→22:35)
[2021-04-23] MEDS: NYSTATIN 500,000 UNIT/5 ML ORAL LIQD PO SCH ×4 (11:25→22:35)
[2021-04-23] MEDS: ZINC SULFATE 220 MG CAP PO SCH ×2 (11:25→22:35)
[2021-04-23] MEDS: FAMOTIDINE 20 MG TAB PO SCH ×2 (11:25→22:35)
--- NOTE | 2021-04-23 14:46 | Progress Note ---
Assessment and Plan Cultures: Blood culture no growth so far Covid PCR: Positive A/P: 50-year-old female past medical history obesity, GERD, hyperlipidemia pr esents with COVID-19 pneumonia #Severe COVID-19 pneumonia: Patient presented with a week of symptoms, chest x- ray with diffuse bilateral infiltrates, admission O2 sats on room air. Inflammatory markers elevated #Acute hypoxemic respiratory failure: Likely secondary to COVID-19 infection. Currently on high flow nasal cannula #Obesity Recs: -Methylprednisolone, steroids per primary. Complete 10 days. -Remdesivir 200 mg IV q day x 1 followed by 100 mg IV q day x 4 days -Obtain q48-72h inflammatory markers - ferritin, Ddimer, CRP, LDH -s/p Actemra once -Anticoagulation per hospital protocol -Proning as able Thank you for the consult, we will continue to follow. Nina Winkler MD [facility] O: [phone] F: [phone] Subjective Date of service: 04/23/21 Interval history: Remains on high flow nasal cannula. No acute change. Objective - Exam Narrative Exam: Physical exam deferred to reduce risk of transmission of COVID-19. Please refer to primary team's note. - Constitutional Vitals: Vital Signs Temp Pulse Resp BP Pulse Ox 98.9 F 81 22 114/61 89 04/23/21 07:00 04/23/21 12:51 04/23/21 12:52 04/23/21 12:51 04/23/21 13:12 Temperature -Last 24 Hours Temperature 98.9 F Temperature 98.1 F Temperature 98.8 F - Labs CBC & Chem 7: 04/23/21 04:52 04/23/21 04:52 Labs: Abnormal lab results 04/22/21 04/22/21 04/23/21 Range/Units 16:26 22:23 04:52 RDW 15.7 H (13.2-15.2) % Sodium (137-145) mmol/L Chloride (98-107) mmol/L BUN (7-17) mg/dL Glucose (65-100) mg/dL POC Glucose 200 H 136 H (70-105) mg/dL AST (5-40) units/L Albumin (3.9-5) g/dL 04/23/21 04/23/21 Range/Units 04:52 12:06 RDW (13.2-15.2) % Sodium 136 L (137-145) mmol/L Chloride 97.7 L (98-107) mmol/L BUN 23 H (7-17) mg/dL Glucose 101 H (65-100) mg/dL POC Glucose 202 H (70-105) mg/dL AST 46 H (5-40) units/L Albumin 3.3 L (3.9-5) g/dL
--- NOTE | 2021-04-23 15:02 | Progress Note ---
Assessment and Plan Assessment and plan: 50 YO Female with GERD, Obesity, HLD presents to ED for evaluation. Patient reports "I cannot breathe". Patient states that she has experienced subjective fever, shortness of breath, malaise, body aches, dry cough, and shortness of breath over the past 1 week with progressively worsening symptoms over the same timeframe. EMS was notified and upon arrival the patient was found to be in distress and subsequent transported to [facility] for further care and evaluation of the aforementioned symptoms. The patient was seen and evaluated in the emergency department. All lab and imaging studies reviewed. Patient found to have a pulse oximetry of 86% with exertion on room air which is consistent with acute hypoxemic respiratory failure. Patient with chest x-ray which revealed bilateral pneumonia. Patient admitted to medical floor and initiated him on pneumonia protocol as well as coronavirus protocol. Patient knowledges fever but denies chills, chest pain, palpitation, skin rash, recent ill contacts, or known exposure to COVID-19. Prior admission on 01/21/2017 reviewed. All medication listed at time of admission has been reconciled. Patient is unvaccinated for coronavirus infection. CXR: Bilateral Pneumonia 04/17: Patient seen and examined, still uncomfortable with Hypoxic respiratory tolu lure and on oxygen, will continue to steroids therapy, start patient on Remdesivir, ID consulted, Pulmonary consult placed. 04/18: Patient seen and examined, she is currently being changed to High flow NC due to worsening HYPOXIA, will transfer to IMCU, Pulmonary and ID following. Will also give a dose of Lasix today. Monitor Inflammatory markers. 04/19: Patient seen and examined still on high flow due to hypoxia. Appears a bit more comfortable today than yesterday. Cough has decreased in frequency. We will continue high dose Dexameathasone to complete 10 days. continue on Remdesivir 200 mg IV q day x 1 followed by 100 mg IV q day x 4 days -Obtain q48-72h inflammatory markers - ferritin, Ddimer, CRP, LDH Will also give lasix daily for the next 3 days and monitor renal function. Family updated. Continue prone positioning as tolerated 04/20: Patient has some desaturation episodes yesterday was placed on BiPAP. Discussed with ICU team for bed availability for patient to be transferred up. Continue prone position as tolerated. 04/21: Patient remains with profound hypoxia secondary to COVID pneumonia. -Continue steroids -Continue remedesir -S/P Actmera 04/22: Patient remains on steroids and remdesivir. ABG shows persistent hypoxia. We will continue current management additional trial of Lasix for the next few days to see if any improvement. Monitor inflammatory markers as needed. Prognosis is guarded remains on high flow 04/23; patient was treated with remdesivir and Actemra. Continue steroid. Patient's prognosis is guarded. (1) Acute hypoxemic respiratory failure Current Visit: Yes Status: Acute Plan to address problem: Supplemental oxygen, chest x-ray, pulse oximetry, nebulizer therapy, proposition while in bed, noninvasive positive pressure ventilation as clinically indicated. If patient is unable to maintain pulse oximetry will consider high flow supplemental oxygen. (2) Pneumonia Current Visit: Yes Status: Acute Plan to address problem: Pneumonia protocol: Chest x-ray, CBC, CMP, IV antibiotic therapy, blood culture. (3) 2019 novel coronavirus infection Current Visit: Yes Status: Acute Plan to address problem: Coronavirus protocol: IV antibiotic therapy, IV steroid therapy, vitamin C therapy, vitamin D therapy, zinc therapy, prone positioning while in bed, nebulizer therapy, supplemental oxygen, pulse oximetry. Prophylactic anticoagulation (4) Obesity hypoventilation syndrome Current Visit: Yes Status: Acute Plan to address problem: Balanced diet, increase physical activity discharge, outpatient pulmonary follow-up for sleep study. (5) DVT prophylaxis Current Visit: Yes Status: Acute Plan to address problem: SCD to bilateral lower extremities while in bed, prophylactic anticoagulation The high probability of a clinically significant, sudden or life threatening deterioration of the [Pulmonary] system(s) required my full and direct attention, intervention and personal management. The aggregate critical care time was [35] minutes. This time is in addition to time spent performing reported procedures but includes the following: [x] Data Review and interpretation [x] Patient assessment and monitoring of vital signs [x] Documentation [x] Medication orders and management History Interval history: Patient was seen and evaluated this morning, patient was on 15 L of high flow oxygen via nasal cannula and 15 L of nonrebreather mask. Patient was saturating in the low 90s Hospitalist Physical - Physical exam Narrative exam: Patient is in respiratory distress. Patient is on 15 L of high flow oxygen and 15 L via nonrebreather mask The patient appeared well nourished and normally developed. Vital signs as documented. Head exam is unremarkable. No scleral icterus . Neck is without jugular venous distension, thyromegaly, or carotid bruits. Lungs decreased air entry. Cardiac exam reveals regular rate and Rhythm. Abdominal exam reveals normal bowel sounds, nontender, no organomegaly. Extremities are nonedematous and both femoral and pedal pulses are normal. [employer]: Alert and oriented 3. No focal weakness. - Constitutional Vitals: Temp Pulse Resp BP Pulse Ox 98.9 F 81 22 114/61 89 04/23/21 07:00 04/23/21 12:51 04/23/21 12:52 04/23/21 12:51 04/23/21 13:12 General appearance: Absent: no acute distress, mild distress Results - Labs CBC & Chem 7: 04/23/21 04:52 04/23/21 04:52 Labs: Laboratory Last Values WBC 9.9 K/mm3 (4.5-11.0) 04/23/21 04:52 RBC 4.84 M/mm3 (3.65-5.03) 04/23/21 04:52 Hgb 14.2 gm/dl (10.1-14.3) 04/23/21 04:52 Hct 42.5 % (30.3-42.9) 04/23/21 04:52 MCV 88 fl (79-97) 04/23/21 04:52 MCH 29 pg (28-32) 04/23/21 04:52 MCHC 33 % (30-34) 04/23/21 04:52 RDW 15.7 % (13.2-15.2) H 04/23/21 04:52 Plt Count 405 K/mm3 (140-440) 04/23/21 04:52 Lymph % (Auto) 7.7 % (13.4-35.0) L 04/17/21 03:50 [place] % (Auto) 2.5 % (0.0-7.3) 04/17/21 03:50 Eos % (Auto) 0.0 % (0.0-4.3) 04/17/21 03:50 Baso % (Auto) 0.0 % (0.0-1.8) 04/17/21 03:50 Lymph # (Auto) 0.6 K/mm3 (1.2-5.4) L 04/17/21 03:50 [place] # (Auto) 0.2 K/mm3 (0.0-0.8) 04/17/21 03:50 Eos # (Auto) 0.0 K/mm3 (0.0-0.4) 04/17/21 03:50 Baso # (Auto) 0.0 K/mm3 (0.0-0.1) 04/17/21 03:50 Seg Neutrophils % 89.8 % (40.0-70.0) H 04/17/21 03:50 Seg Neutrophils # 6.7 K/mm3 (1.8-7.7) 04/17/21 03:50 D-Dimer 262.48 ng/mlDDU (0-234) H 04/17/21 08:26 ABG pH 7.457 (7.320-7.450) H 04/22/21 08:37 POC ABG pCO2 40.7 mmHg (32.0-48.0) 04/22/21 08:37 POC ABG pO2 49.4 mmHg (83-108) L 04/22/21 08:37 POC ABG HCO3 28.1 04/22/21 08:37 ABG O2 Saturation 85.9 (0-100) 04/22/21 08:37 POC ABG Base Excess 3.9 04/22/21 08:37 ABG Hemoglobin 14.5 (12.0-17.5) 04/22/21 08:37 ABG Oxyhemoglobin 85.6 (94-98) L 04/22/21 08:37 ABG Methemoglobin 0 (0.0-1.5) 04/22/21 08:37 ABG Sodium 138.6 mmol/L (136.0-145.0) 04/22/21 08:37 ABG Potassium 3.8 mmol/L (3.40-4.50) 04/22/21 08:37 ABG Chloride 102.0 mmol/L (98-107) 04/22/21 08:37 ABG Glucose 121 mg/dL (65-95) H 04/22/21 08:37 Carboxyhemoglobin 0.3 (0.5-1.5) L 04/22/21 08:37 FiO2 % 100.0 04/22/21 08:37 Sodium 136 mmol/L (137-145) L 04/23/21 04:52 Potassium 4.7 mmol/L (3.6-5.0) 04/23/21 04:52 Chloride 97.7 mmol/L (98-107) L 04/23/21 04:52 Carbon Dioxide 30 mmol/L (22-30) 04/23/21 04:52 Anion Gap 13 mmol/L 04/23/21 04:52 BUN 23 mg/dL (7-17) H 04/23/21 04:52 Creatinine 0.7 mg/dL (0.6-1.2) 04/23/21 04:52 Estimated GFR > 60 ml/min 04/23/21 04:52 BUN/Creatinine Ratio 33 % 04/23/21 04:52 Glucose 101 mg/dL (65-100) H 04/23/21 04:52 POC Glucose 202 mg/dL (70-105) H 04/23/21 12:06 Hemoglobin A1c 8.5 % (4-6) H 04/18/21 07:36 Calcium 8.7 mg/dL (8.4-10.2) 04/23/21 04:52 Ferritin 392.0 ng/mL (10.0-200.0) H 04/17/21 08:26 Total Bilirubin 0.40 mg/dL (0.1-1.2) 04/23/21 04:52 AST 46 units/L (5-40) H 04/23/21 04:52 ALT 44 units/L (7-56) 04/23/21 04:52 Alkaline Phosphatase 58 units/L (35-129) 04/23/21 04:52 Lactate Dehydrogenase 338 units/L (91-180) H 04/17/21 08:26 C-Reactive Protein 17.20 mg/dL (0.00-1.30) H 04/17/21 08:26 Total Protein 6.5 g/dL (6.3-8.2) 04/23/21 04:52 Albumin 3.3 g/dL (3.9-5) L 04/23/21 04:52 Albumin/Globulin Ratio 1.0 % 04/23/21 04:52 Procalcitonin < 0.05 ng/mL (<0.15) 04/17/21 08:26 Arterial Blood Glucose 121 mg/dL (65-95) H 04/22/21 08:37 Coronavirus (PCR) Positive (Negative) A 04/17/21 Unknown Active Medications - Current Medications Current Medications: Generic Name Dose Route Start Last Admin Trade Name Freeleuterio PRN Reason Stop Dose Admin Acetaminophen 650 mg 04/16/21 14:00 04/18/21 12:15 Acetaminophen 325 Mg Tab PO 650 mg Q4H PRN Administration Pain MILD(1-3)/Fever >100.5/[place] Albuterol 2.5 mg 04/16/21 13:39 04/21/21 20:39 Albuterol 2.5 Mg/3 Ml Nebu IH 2.5 mg Q4HRT PRN Administration Shortness Of Breath Ascorbic Acid 250 mg 04/20/21 10:00 04/23/21 11:25 Ascorbic Acid 250 Mg Tab PO 250 mg BID TUTU Administration Cholecalciferol 1,000 unit 04/17/21 10:00 04/23/21 11:25 Cholecalciferol (Vit D3) 1000 Unit (25 Mcg) Tab PO 1,000 unit QDAY TUTU Administration Dexamethasone 8 mg 04/18/21 10:00 04/23/21 11:24 Dexamethasone 4 Mg/Ml Vial IV 04/27/21 10:01 8 mg DAILY TUTU Administration Dextrose 50 ml 04/18/21 07:30 Dextrose 50% In Water (25gm) 50 Ml Syringe IV Q30MIN PRN Hypoglycemia Protocol Famotidine 20 mg 04/16/21 22:00 04/23/21 11:25 Famotidine 20 Mg Tab PO 20 mg BID TUTU Administration Heparin Sodium (Porcine) 5,000 unit 04/16/21 22:00 04/23/21 11:25 Heparin 5,000 Unit/1 Ml Vial SUB-Q 5,000 unit Q12HR TUTU Administration Hydromorphone HCl 0.5 mg 04/16/21 14:00 04/20/21 19:48 Hydromorphone 1 Mg/1 Ml Inj IV 0.5 mg Q12H PRN Administration Pain , Severe (7-10) Insulin Glargine 20 units 04/19/21 22:00 04/22/21 23:12 Insulin Glargine 100 Units/Ml SUB-Q 20 units QHS TUTU Administration Insulin Human Lispro 0 unit 04/18/21 08:00 04/23/21 12:12 Insulin Lispro 100 Unit/Ml SUB-Q 4 unit ACHS TUTU Administration Protocol Nystatin 500,000 unit 04/21/21 14:00 04/23/21 14:05 Nystatin 500,000 Unit/5 Ml Oral Liqd PO 04/28/21 10:01 500,000 unit QID TUTU Administration Ondansetron HCl 4 mg 04/16/21 14:00 Ondansetron 4 Mg/2 Ml Inj IV Q8H PRN Nausea And Vomiting Oxycodone/Acetaminophen 1 tab 04/16/21 14:00 04/20/21 22:01 Oxycodone /Acetaminophen 5-325mg Tab PO 1 tab Q12H PRN Administration Pain, Moderate (4-6) Sodium Chloride 10 ml 04/16/21 22:00 04/23/21 11:25 Sodium Chloride 0.9% 10 Ml Flush Syringe IV 10 ml BID TUTU Administration Sodium Chloride 10 ml 04/16/21 13:39 Sodium Chloride 0.9% 10 Ml Flush Syringe IV PRN PRN LINE FLUSH Zinc Sulfate 220 mg 04/16/21 22:00 04/23/21 11:25 Zinc Sulfate 220 Mg Cap PO 220 mg BID TUTU Administration Nutrition/Malnutrition Assess - Dietary Evaluation Nutrition/Malnutrition Findings: Nutrition Notes Start: 04/23/21 07:41 Freq: Status: Active Protocol: Document 04/23/21 07:41 FABIAN (Rec: 04/23/21 07:43 FABIAN [id number]) Nutrition Notes Need for Assessment generated from: LOS Initial or Follow up Brief Note Current Diagnosis Respiratory Failure Other Pertinent Diagnosis pneu, COVID-19, hyperglycemia Labs/Tests A1c 8.5 Subjective/Other Information Screen for LOS. Pt on hold in ED. No intakes in chart. Nutrition Intervention Follow-Up By: 04/24/21 Additional Comments F/u: placement and intakes
[2021-04-23] MEDS: INSULIN GLARGINE 100 UNITS/ML SUB-Q SCH (23:17)
[2021-04-24] MEDS: oxyCODONE /ACETAMINOPHEN 5-325MG TAB PO PRN (01:41)
[2021-04-24] MEDS: dexAMETHasone 4 MG/ML VIAL IV SCH (09:27)
[2021-04-24] MEDS: INSULIN LISPRO 100 UNIT/ML SUB-Q SCH ×4 (09:27→23:02)
[2021-04-24] MEDS: HEPARIN 5,000 UNIT/1 ML VIAL SUB-Q SCH ×2 (09:28→23:24)
[2021-04-24] MEDS: ZINC SULFATE 220 MG CAP PO SCH ×2 (09:28→23:24)
[2021-04-24] MEDS: FAMOTIDINE 20 MG TAB PO SCH ×2 (09:28→23:24)
[2021-04-24] MEDS: CHOLECALCIFEROL (VIT D3) 1000 UNIT (25 mcg) TAB PO SCH (09:28)
[2021-04-24] MEDS: ASCORBIC ACID 500 MG TAB PO SCH (09:29)
--- NOTE | 2021-04-24 09:59 | Progress Note ---
Assessment and Plan Assessment and plan: 50 YO Female with GERD, Obesity, HLD presents to ED for evaluation. Patient reports "I cannot breathe". Patient states that she has experienced subjective fever, shortness of breath, malaise, body aches, dry cough, and shortness of breath over the past 1 week with progressively worsening symptoms over the same timeframe. EMS was notified and upon arrival the patient was found to be in distress and subsequent transported to [facility] for further care and evaluation of the aforementioned symptoms. The patient was seen and evaluated in the emergency department. All lab and imaging studies reviewed. Patient found to have a pulse oximetry of 86% with exertion on room air which is consistent with acute hypoxemic respiratory failure. Patient with chest x-ray which revealed bilateral pneumonia. Patient admitted to medical floor and initiated him on pneumonia protocol as well as coronavirus protocol. Patient knowledges fever but denies chills, chest pain, palpitation, skin rash, recent ill contacts, or known exposure to COVID-19. Prior admission on 01/21/2017 reviewed. All medication listed at time of admission has been reconciled. Patient is unvaccinated for coronavirus infection. CXR: Bilateral Pneumonia 04/17: Patient seen and examined, still uncomfortable with Hypoxic respiratory tolu lure and on oxygen, will continue to steroids therapy, start patient on Remdesivir, ID consulted, Pulmonary consult placed. 04/18: Patient seen and examined, she is currently being changed to High flow NC due to worsening HYPOXIA, will transfer to IMCU, Pulmonary and ID following. Will also give a dose of Lasix today. Monitor Inflammatory markers. 04/19: Patient seen and examined still on high flow due to hypoxia. Appears a bit more comfortable today than yesterday. Cough has decreased in frequency. We will continue high dose Dexameathasone to complete 10 days. continue on Remdesivir 200 mg IV q day x 1 followed by 100 mg IV q day x 4 days -Obtain q48-72h inflammatory markers - ferritin, Ddimer, CRP, LDH Will also give lasix daily for the next 3 days and monitor renal function. Family updated. Continue prone positioning as tolerated 04/20: Patient has some desaturation episodes yesterday was placed on BiPAP. Discussed with ICU team for bed availability for patient to be transferred up. Continue prone position as tolerated. 04/21: Patient remains with profound hypoxia secondary to COVID pneumonia. -Continue steroids -Continue remedesir -S/P Actmera 04/22: Patient remains on steroids and remdesivir. ABG shows persistent hypoxia. We will continue current management additional trial of Lasix for the next few days to see if any improvement. Monitor inflammatory markers as needed. Prognosis is guarded remains on high flow 04/23; patient was treated with remdesivir and Actemra. Continue steroid. Patient's prognosis is guarded. 04/24; patient is on steroid. Patient is currently on BiPAP. Prognosis is guarded. Pulmonary is following. Patient was given Lasix and Ativan. (1) Acute hypoxemic respiratory failure Current Visit: Yes Status: Acute Plan to address problem: Supplemental oxygen, chest x-ray, pulse oximetry, nebulizer therapy, proposition while in bed, noninvasive positive pressure ventilation as clinically indicated. If patient is unable to maintain pulse oximetry will consider high flow supplemental oxygen. (2) Pneumonia Current Visit: Yes Status: Acute Plan to address problem: Pneumonia protocol: Chest x-ray, CBC, CMP, IV antibiotic therapy, blood culture. (3) 2019 novel coronavirus infection Current Visit: Yes Status: Acute Plan to address problem: Coronavirus protocol: IV antibiotic therapy, IV steroid therapy, vitamin C therapy, vitamin D therapy, zinc therapy, prone positioning while in bed, nebulizer therapy, supplemental oxygen, pulse oximetry. Prophylactic anticoagulation (4) Obesity hypoventilation syndrome Current Visit: Yes Status: Acute Plan to address problem: Balanced diet, increase physical activity discharge, outpatient pulmonary follow-up for sleep study. (5) DVT prophylaxis Current Visit: Yes Status: Acute Plan to address problem: SCD to bilateral lower extremities while in bed, prophylactic anticoagulation The high probability of a clinically significant, sudden or life threatening deterioration of the [Pulmonary] system(s) required my full and direct attention, intervention and personal management. The aggregate critical care time was [35] minutes. This time is in addition to time spent performing reported procedures but includes the following: [x] Data Review and interpretation [x] Patient assessment and monitoring of vital signs [x] Documentation [x] Medication orders and management History Interval history: Patient was on BiPAP Hospitalist Physical - Physical exam Narrative exam: Patient is in respiratory distress. Patient is on 15 L of high flow oxygen and 15 L via nonrebreather mask The patient appeared well nourished and normally developed. Vital signs as documented. Head exam is unremarkable. No scleral icterus . Neck is without jugular venous distension, thyromegaly, or carotid bruits. Lungs decreased air entry. Cardiac exam reveals regular rate and Rhythm. Abdominal exam reveals normal bowel sounds, nontender, no organomegaly. Extremities are nonedematous and both femoral and pedal pulses are normal. 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 No focal weakness. - Constitutional Vitals: Temp Pulse Resp BP Pulse Ox 99.5 F 95 H 45 H 114/57 96 04/24/21 04:00 04/24/21 08:37 04/24/21 08:37 04/24/21 08:37 04/24/21 08:37 General appearance: Absent: no acute distress, mild distress Results - Labs CBC & Chem 7: 04/23/21 04:52 04/23/21 04:52 Labs: Laboratory Last Values WBC 9.9 K/mm3 (4.5-11.0) 04/23/21 04:52 RBC 4.84 M/mm3 (3.65-5.03) 04/23/21 04:52 Hgb 14.2 gm/dl (10.1-14.3) 04/23/21 04:52 Hct 42.5 % (30.3-42.9) 04/23/21 04:52 MCV 88 fl (79-97) 04/23/21 04:52 MCH 29 pg (28-32) 04/23/21 04:52 MCHC 33 % (30-34) 04/23/21 04:52 RDW 15.7 % (13.2-15.2) H 04/23/21 04:52 Plt Count 405 K/mm3 (140-440) 04/23/21 04:52 Lymph % (Auto) 7.7 % (13.4-35.0) L 04/17/21 03:50 [place] % (Auto) 2.5 % (0.0-7.3) 04/17/21 03:50 Eos % (Auto) 0.0 % (0.0-4.3) 04/17/21 03:50 Baso % (Auto) 0.0 % (0.0-1.8) 04/17/21 03:50 Lymph # (Auto) 0.6 K/mm3 (1.2-5.4) L 04/17/21 03:50 [place] # (Auto) 0.2 K/mm3 (0.0-0.8) 04/17/21 03:50 Eos # (Auto) 0.0 K/mm3 (0.0-0.4) 04/17/21 03:50 Baso # (Auto) 0.0 K/mm3 (0.0-0.1) 04/17/21 03:50 Seg Neutrophils % 89.8 % (40.0-70.0) H 04/17/21 03:50 Seg Neutrophils # 6.7 K/mm3 (1.8-7.7) 04/17/21 03:50 D-Dimer 262.48 ng/mlDDU (0-234) H 04/17/21 08:26 ABG pH 7.457 (7.320-7.450) H 04/22/21 08:37 POC ABG pCO2 40.7 mmHg (32.0-48.0) 04/22/21 08:37 POC ABG pO2 49.4 mmHg (83-108) L 04/22/21 08:37 POC ABG HCO3 28.1 04/22/21 08:37 ABG O2 Saturation 85.9 (0-100) 04/22/21 08:37 POC ABG Base Excess 3.9 04/22/21 08:37 ABG Hemoglobin 14.5 (12.0-17.5) 04/22/21 08:37 ABG Oxyhemoglobin 85.6 (94-98) L 04/22/21 08:37 ABG Methemoglobin 0 (0.0-1.5) 04/22/21 08:37 ABG Sodium 138.6 mmol/L (136.0-145.0) 04/22/21 08:37 ABG Potassium 3.8 mmol/L (3.40-4.50) 04/22/21 08:37 ABG Chloride 102.0 mmol/L (98-107) 04/22/21 08:37 ABG Glucose 121 mg/dL (65-95) H 04/22/21 08:37 Carboxyhemoglobin 0.3 (0.5-1.5) L 04/22/21 08:37 FiO2 % 100.0 04/22/21 08:37 Sodium 136 mmol/L (137-145) L 04/23/21 04:52 Potassium 4.7 mmol/L (3.6-5.0) 04/23/21 04:52 Chloride 97.7 mmol/L (98-107) L 04/23/21 04:52 Carbon Dioxide 30 mmol/L (22-30) 04/23/21 04:52 Anion Gap 13 mmol/L 04/23/21 04:52 BUN 23 mg/dL (7-17) H 04/23/21 04:52 Creatinine 0.7 mg/dL (0.6-1.2) 04/23/21 04:52 Estimated GFR > 60 ml/min 04/23/21 04:52 BUN/Creatinine Ratio 33 % 04/23/21 04:52 Glucose 101 mg/dL (65-100) H 04/23/21 04:52 POC Glucose 126 mg/dL (70-105) H 04/24/21 08:38 Hemoglobin A1c 8.5 % (4-6) H 04/18/21 07:36 Calcium 8.7 mg/dL (8.4-10.2) 04/23/21 04:52 Ferritin 392.0 ng/mL (10.0-200.0) H 04/17/21 08:26 Total Bilirubin 0.40 mg/dL (0.1-1.2) 04/23/21 04:52 AST 46 units/L (5-40) H 04/23/21 04:52 ALT 44 units/L (7-56) 04/23/21 04:52 Alkaline Phosphatase 58 units/L (35-129) 04/23/21 04:52 Lactate Dehydrogenase 338 units/L (91-180) H 04/17/21 08:26 C-Reactive Protein 17.20 mg/dL (0.00-1.30) H 04/17/21 08:26 Total Protein 6.5 g/dL (6.3-8.2) 04/23/21 04:52 Albumin 3.3 g/dL (3.9-5) L 04/23/21 04:52 Albumin/Globulin Ratio 1.0 % 04/23/21 04:52 Procalcitonin < 0.05 ng/mL (<0.15) 04/17/21 08:26 Arterial Blood Glucose 121 mg/dL (65-95) H 04/22/21 08:37 Coronavirus (PCR) Positive (Negative) A 04/17/21 Unknown Active Medications - Current Medications Current Medications: Generic Name Dose Route Start Last Admin Trade Name Freq PRN Reason Stop Dose Admin Acetaminophen 650 mg 04/16/21 14:00 04/18/21 12:15 Acetaminophen 325 Mg Tab PO 650 mg Q4H PRN Administration Pain MILD(1-3)/Fever >100.5/CAROLNIA Albuterol 2.5 mg 04/16/21 13:39 04/21/21 20:39 Albuterol 2.5 Mg/3 Ml Nebu IH 2.5 mg Q4HRT PRN Administration Shortness Of Breath Ascorbic Acid 500 mg 04/24/21 10:00 04/24/21 09:29 Ascorbic Acid 500 Mg Tab PO 500 mg QDAY TUTU Administration Cholecalciferol 1,000 unit 04/17/21 10:00 04/24/21 09:28 Cholecalciferol (Vit D3) 1000 Unit (25 Mcg) Tab PO 1,000 unit QDAY TUTU Administration Dexamethasone 8 mg 04/18/21 10:00 04/24/21 09:27 Dexamethasone 4 Mg/Ml Vial IV 04/27/21 10:01 8 mg DAILY TUTU Administration Dextrose 50 ml 04/18/21 07:30 Dextrose 50% In Water (25gm) 50 Ml Syringe IV Q30MIN PRN Hypoglycemia Protocol Famotidine 20 mg 04/16/21 22:00 04/24/21 09:28 Famotidine 20 Mg Tab PO 20 mg BID TUTU Administration Heparin Sodium (Porcine) 5,000 unit 04/16/21 22:00 04/24/21 09:28 Heparin 5,000 Unit/1 Ml Vial SUB-Q 5,000 unit Q12HR TUTU Administration Hydromorphone HCl 0.5 mg 04/16/21 14:00 04/20/21 19:48 Hydromorphone 1 Mg/1 Ml Inj IV 0.5 mg Q12H PRN Administration Pain , Severe (7-10) Insulin Glargine 5 units 04/24/21 22:00 Insulin Glargine 100 Units/Ml SUB-Q QHS TUTU Insulin Human Lispro 0 unit 04/18/21 08:00 04/24/21 09:27 Insulin Lispro 100 Unit/Ml SUB-Q Not Given ACHS TUTU Protocol Nystatin 500,000 unit 04/21/21 14:00 04/23/21 22:35 Nystatin 500,000 Unit/5 Ml Oral Liqd PO 04/28/21 10:01 500,000 unit QID TUTU Administration Ondansetron HCl 4 mg 04/16/21 14:00 Ondansetron 4 Mg/2 Ml Inj IV Q8H PRN Nausea And Vomiting Oxycodone/Acetaminophen 1 tab 04/16/21 14:00 04/24/21 01:41 Oxycodone /Acetaminophen 5-325mg Tab PO 1 tab Q12H PRN Administration Pain, Moderate (4-6) Sodium Chloride 10 ml 04/16/21 22:00 04/24/21 09:28 Sodium Chloride 0.9% 10 Ml Flush Syringe IV 10 ml BID TUTU Administration Sodium Chloride 10 ml 04/16/21 13:39 Sodium Chloride 0.9% 10 Ml Flush Syringe IV PRN PRN LINE FLUSH Zinc Sulfate 220 mg 04/16/21 22:00 04/24/21 09:28 Zinc Sulfate 220 Mg Cap PO 220 mg BID TUTU Administration Nutrition/Malnutrition Assess - Dietary Evaluation Nutrition/Malnutrition Findings: Nutrition Notes Start: 04/23/21 07:41 Freq: Status: Active Protocol: Document 04/23/21 07:41 FABIAN (Rec: 04/23/21 07:43 FABIAN [id number]) Nutrition Notes Need for Assessment generated from: LOS Initial or Follow up Brief Note Current Diagnosis Respiratory Failure Other Pertinent Diagnosis pneu, COVID-19, hyperglycemia Labs/Tests A1c 8.5 Subjective/Other Information Screen for LOS. Pt on hold in ED. No intakes in chart. Nutrition Intervention Follow-Up By: 04/24/21 Additional Comments F/u: placement and intakes
--- NOTE | 2021-04-24 11:38 | Progress Note ---
Assessment and Plan 50 y/o female with acute respiratory failure secondary to COVID19 pneumonia. 04/24/21: Lasix today. Will also start patient on low dose PRN ativan. If this does not help will then try precedex. Guarded prognosis. 04/23/21: Prone as tolerated. No lasix today. Continue decadron. Guarded prognosis. High risk for intubation and high mortality with intubation. 04/19/21: Prone as tolerated during the day and sleep prone at night. Continue IV remdesivir and steroids. Did get actemra. Guarded prognosis. 1. Daily net negative state 2. Prone if possible 3. IV remdesivir. 4. Should be a candidate for Actemra 5. IV steroids 6. Guarded Prognosis Subjective Date of service: 04/24/21 Interval history: Finally moved up to unit, IMCU but In CCU bed. awake and alert on bipap. Very anxious. Family translates over the phone for us. Urine output is good. Objective Vital Signs - 12hr 04/24/21 04/24/21 04/24/21 00:01 01:01 02:00 Temperature Pulse Rate 80 87 75 Pulse Rate [ From Monitor] Pulse Rate [ Left] Pulse Rate [ Right] Respiratory 29 H 39 H 26 H Rate Blood Pressure 106/60 109/64 Blood Pressure [Left] O2 Sat by Pulse 90 86 94 Oximetry 04/24/21 04/24/21 04/24/21 02:01 02:58 03:01 Temperature Pulse Rate 80 74 Pulse Rate [ From Monitor] Pulse Rate [ Left] Pulse Rate [ Right] Respiratory 35 H 39 H Rate Blood Pressure 126/39 97/54 Blood Pressure 126/70 [Left] O2 Sat by Pulse 90 95 Oximetry 04/24/21 04/24/21 04/24/21 03:15 03:31 03:45 Temperature Pulse Rate 76 73 77 Pulse Rate [ From Monitor] Pulse Rate [ Left] Pulse Rate [ Right] Respiratory 41 H 41 H 42 H Rate Blood Pressure 107/58 98/47 113/58 Blood Pressure [Left] O2 Sat by Pulse 95 97 95 Oximetry 04/24/21 04/24/21 04/24/21 03:50 04:00 05:02 Temperature 99.5 F Pulse Rate 76 Pulse Rate [ 74 From Monitor] Pulse Rate [ 74 Left] Pulse Rate [ 74 Right] Respiratory 43 H 38 H Rate Blood Pressure 113/58 Blood Pressure [Left] O2 Sat by Pulse 95 97 Oximetry 04/24/21 04/24/21 08:00 08:37 Temperature Pulse Rate 95 H Pulse Rate [ 90 From Monitor] Pulse Rate [ Left] Pulse Rate [ Right] Respiratory 32 H 45 H Rate Blood Pressure 114/57 Blood Pressure [Left] O2 Sat by Pulse 95 96 Oximetry Constitutional: no acute distress, other (on hiflo 100%) Eyes: non-icteric, other (sl injected) ENT: oropharynx moist, other (white plaques on tongue) Ascultation: Bilateral: diminished breath sounds Cardiovascular: regular rate and rhythm Gastrointestinal: normoactive bowel sounds, soft, non-tender, non-distended Extremities: no cyanosis Psychiatric: anxious CBC and BMP: 04/23/21 04:52 04/23/21 04:52 ABG, PT/INR, D-dimer: ABG ABG pH 7.457 (7.320-7.450) H 04/22/21 08:37 POC ABG pCO2 40.7 mmHg (32.0-48.0) 04/22/21 08:37 POC ABG pO2 49.4 mmHg (83-108) L 04/22/21 08:37 POC ABG HCO3 28.1 04/22/21 08:37 ABG O2 Saturation 85.9 (0-100) 04/22/21 08:37 PT/INR, D-dimer D-Dimer 262.48 ng/mlDDU (0-234) H 04/17/21 08:26 Abnormal lab findings: Abnormal Labs 04/16/21 04/16/21 04/16/21 11:42 11:42 11:42 WBC RDW 16.1 H Lymph % (Auto) 7.8 L Lymph # (Auto) 0.8 L Seg Neutrophils % 87.7 H Seg Neutrophils # 8.5 H D-Dimer 338.70 H ABG pH POC ABG pO2 ABG Oxyhemoglobin ABG Glucose Carboxyhemoglobin Sodium Potassium Chloride BUN Creatinine Glucose 194 H POC Glucose Hemoglobin A1c Ferritin AST Lactate Dehydrogenase C-Reactive Protein Total Protein 8.4 H Albumin 3.8 L Arterial Blood Glucose Coronavirus (PCR) 04/16/21 04/16/21 04/17/21 11:42 11:42 03:50 WBC RDW 16.0 H Lymph % (Auto) 7.7 L Lymph # (Auto) 0.6 L Seg Neutrophils % 89.8 H Seg Neutrophils # D-Dimer ABG pH POC ABG pO2 ABG Oxyhemoglobin ABG Glucose Carboxyhemoglobin Sodium Potassium Chloride BUN Creatinine Glucose 195 H POC Glucose Hemoglobin A1c Ferritin 254.3 H AST Lactate Dehydrogenase 359 H C-Reactive Protein 15.20 H Total Protein Albumin Arterial Blood Glucose Coronavirus (PCR) 04/17/21 04/17/21 04/17/21 03:50 08:26 08:26 WBC RDW Lymph % (Auto) Lymph # (Auto) Seg Neutrophils % Seg Neutrophils # D-Dimer 262.48 H ABG pH POC ABG pO2 ABG Oxyhemoglobin ABG Glucose Carboxyhemoglobin Sodium Potassium Chloride BUN 20 H Creatinine 0.5 L Glucose 249 H 225 H POC Glucose Hemoglobin A1c Ferritin AST Lactate Dehydrogenase 338 H C-Reactive Protein 17.20 H Total Protein Albumin 3.2 L Arterial Blood Glucose Coronavirus (PCR) 04/17/21 04/17/21 04/17/21 08:26 15:04 Unknown WBC RDW Lymph % (Auto) Lymph # (Auto) Seg Neutrophils % Seg Neutrophils # D-Dimer ABG pH POC ABG pO2 ABG Oxyhemoglobin ABG Glucose Carboxyhemoglobin Sodium Potassium Chloride BUN 20 H Creatinine 0.5 L Glucose 246 H POC Glucose Hemoglobin A1c Ferritin 392.0 H AST Lactate Dehydrogenase C-Reactive Protein Total Protein 8.3 H Albumin 3.1 L Arterial Blood Glucose Coronavirus (PCR) Positive A 04/18/21 04/18/21 04/18/21 05:06 05:06 07:36 WBC 11.6 H RDW 16.1 H Lymph % (Auto) Lymph # (Auto) Seg Neutrophils % Seg Neutrophils # D-Dimer ABG pH POC ABG pO2 ABG Oxyhemoglobin ABG Glucose Carboxyhemoglobin Sodium Potassium 5.2 H Chloride BUN 22 H Creatinine 0.5 L Glucose 315 H POC Glucose Hemoglobin A1c 8.5 H Ferritin AST Lactate Dehydrogenase C-Reactive Protein Total Protein Albumin 3.3 L Arterial Blood Glucose Coronavirus (PCR) 04/18/21 04/18/21 04/18/21 11:59 16:43 23:24 WBC RDW Lymph % (Auto) Lymph # (Auto) Seg Neutrophils % Seg Neutrophils # D-Dimer ABG pH POC ABG pO2 ABG Oxyhemoglobin ABG Glucose Carboxyhemoglobin Sodium Potassium Chloride BUN Creatinine Glucose POC Glucose 284 H 273 H 290 H Hemoglobin A1c Ferritin AST Lactate Dehydrogenase C-Reactive Protein Total Protein Albumin Arterial Blood Glucose Coronavirus (PCR) 04/19/21 04/19/21 04/19/21 04:19 04:19 08:10 WBC RDW 15.7 H Lymph % (Auto) Lymph # (Auto) Seg Neutrophils % Seg Neutrophils # D-Dimer ABG pH POC ABG pO2 ABG Oxyhemoglobin ABG Glucose Carboxyhemoglobin Sodium Potassium Chloride BUN 27 H Creatinine 0.4 L Glucose 184 H POC Glucose 194 H Hemoglobin A1c Ferritin AST Lactate Dehydrogenase C-Reactive Protein Total Protein Albumin 3.1 L Arterial Blood Glucose Coronavirus (PCR) 04/19/21 04/19/21 04/19/21 11:38 16:25 22:04 WBC RDW Lymph % (Auto) Lymph # (Auto) Seg Neutrophils % Seg Neutrophils # D-Dimer ABG pH POC ABG pO2 ABG Oxyhemoglobin ABG Glucose Carboxyhemoglobin Sodium Potassium Chloride BUN Creatinine Glucose POC Glucose 224 H 297 H 251 H Hemoglobin A1c Ferritin AST Lactate Dehydrogenase C-Reactive Protein Total Protein Albumin Arterial Blood Glucose Coronavirus (PCR) 04/20/21 04/20/21 04/20/21 05:28 08:43 16:21 WBC RDW Lymph % (Auto) Lymph # (Auto) Seg Neutrophils % Seg Neutrophils # D-Dimer ABG pH POC ABG pO2 ABG Oxyhemoglobin ABG Glucose Carboxyhemoglobin Sodium Potassium Chloride BUN 27 H Creatinine Glucose 192 H POC Glucose 173 H 253 H Hemoglobin A1c Ferritin AST Lactate Dehydrogenase C-Reactive Protein Total Protein Albumin 3.0 L Arterial Blood Glucose Coronavirus (PCR) 04/21/21 04/21/21 04/21/21 07:58 12:05 16:08 WBC RDW Lymph % (Auto) Lymph # (Auto) Seg Neutrophils % Seg Neutrophils # D-Dimer ABG pH POC ABG pO2 ABG Oxyhemoglobin ABG Glucose Carboxyhemoglobin Sodium Potassium Chloride BUN Creatinine Glucose POC Glucose 140 H 252 H 214 H Hemoglobin A1c Ferritin AST Lactate Dehydrogenase C-Reactive Protein Total Protein Albumin Arterial Blood Glucose Coronavirus (PCR) 04/21/21 04/22/21 04/22/21 21:42 08:37 12:01 WBC RDW Lymph % (Auto) Lymph # (Auto) Seg Neutrophils % Seg Neutrophils # D-Dimer ABG pH 7.457 H POC ABG pO2 49.4 L ABG Oxyhemoglobin 85.6 L ABG Glucose 121 H Carboxyhemoglobin 0.3 L Sodium Potassium Chloride BUN Creatinine Glucose POC Glucose 162 H 227 H Hemoglobin A1c Ferritin AST Lactate Dehydrogenase C-Reactive Protein Total Protein Albumin Arterial Blood Glucose 121 H Coronavirus (PCR) 04/22/21 04/22/21 04/23/21 16:26 22:23 04:52 WBC RDW 15.7 H Lymph % (Auto) Lymph # (Auto) Seg Neutrophils % Seg Neutrophils # D-Dimer ABG pH POC ABG pO2 ABG Oxyhemoglobin ABG Glucose Carboxyhemoglobin Sodium Potassium Chloride BUN Creatinine Glucose POC Glucose 200 H 136 H Hemoglobin A1c Ferritin AST Lactate Dehydrogenase C-Reactive Protein Total Protein Albumin Arterial Blood Glucose Coronavirus (PCR) 04/23/21 04/23/21 04/23/21 04:52 12:06 17:41 WBC RDW Lymph % (Auto) Lymph # (Auto) Seg Neutrophils % Seg Neutrophils # D-Dimer ABG pH POC ABG pO2 ABG Oxyhemoglobin ABG Glucose Carboxyhemoglobin Sodium 136 L Potassium Chloride 97.7 L BUN 23 H Creatinine Glucose 101 H POC Glucose 202 H 169 H Hemoglobin A1c Ferritin AST 46 H Lactate Dehydrogenase C-Reactive Protein Total Protein Albumin 3.3 L Arterial Blood Glucose Coronavirus (PCR) 04/23/21 04/24/21 04/24/21 23:08 05:17 08:38 WBC RDW Lymph % (Auto) Lymph # (Auto) Seg Neutrophils % Seg Neutrophils # D-Dimer ABG pH POC ABG pO2 ABG Oxyhemoglobin ABG Glucose Carboxyhemoglobin Sodium Potassium Chloride BUN Creatinine Glucose POC Glucose 111 H 108 H 126 H Hemoglobin A1c Ferritin AST Lactate Dehydrogenase C-Reactive Protein Total Protein Albumin Arterial Blood Glucose Coronavirus (PCR)
[2021-04-24] MEDS: NYSTATIN 500,000 UNIT/5 ML ORAL LIQD PO SCH ×4 (11:50→23:19)
[2021-04-24] MEDS ORDERED: FUROSEMIDE 20 MG/2 ML INJ IV ONE (12:00)
--- NOTE | 2021-04-24 16:35 | Progress Note ---
Assessment and Plan Cultures: Blood culture no growth so far Covid PCR: Positive A/P: 50-year-old female past medical history obesity, GERD, hyperlipidemia pr esents with COVID-19 pneumonia #Severe COVID-19 pneumonia: Patient presented with a week of symptoms, chest x- ray with diffuse bilateral infiltrates, admission O2 sats on room air. Inflammatory markers elevated #Acute hypoxemic respiratory failure: Likely secondary to COVID-19 infection. Currently on high flow nasal cannula/BiPAP #Obesity Recs: -Methylprednisolone, steroids per primary. Complete 10 days. -Completed Remdesivir -Obtain q48-72h inflammatory markers - ferritin, Ddimer, CRP, LDH -s/p Actemra once -Anticoagulation per hospital protocol -Proning as able Thank you for the consult, we will continue to follow. Nina Winkler MD [facility] O: [phone] F: [phone] Subjective Date of service: 04/24/21 Interval history: Afebrile, normal white count. Now in ICU on high flow nasal cannula with occasional BiPAP. Objective - Exam Narrative Exam: Physical exam deferred to reduce risk of transmission of COVID-19. Please refer to primary team's note. - Constitutional Vitals: Vital Signs Temp Pulse Resp BP Pulse Ox 99.5 F 84 31 H 114/57 90 04/24/21 04:00 04/24/21 16:00 04/24/21 16:00 04/24/21 08:37 04/24/21 16:00 Temperature -Last 24 Hours Temperature 99.5 F - Labs CBC & Chem 7: 04/23/21 04:52 04/23/21 04:52 Labs: Abnormal lab results 04/23/21 04/23/21 04/24/21 Range/Units 17:41 23:08 05:17 POC Glucose 169 H 111 H 108 H (70-105) mg/dL 04/24/21 04/24/21 Range/Units 08:38 11:54 POC Glucose 126 H 147 H (70-105) mg/dL
[2021-04-24] MEDS: INSULIN GLARGINE 100 UNITS/ML SUB-Q SCH (23:24)
[2021-04-24] MEDS: HYDROmorphone 1 MG/1 ML INJ IV PRN (23:30)
[2021-04-25] MEDS: INSULIN LISPRO 100 UNIT/ML SUB-Q SCH ×4 (08:20→21:25)
--- NOTE | 2021-04-25 09:35 | Progress Note ---
Assessment and Plan Assessment and plan: 50 YO Female with GERD, Obesity, HLD presents to ED for evaluation. Patient reports "I cannot breathe". Patient states that she has experienced subjective fever, shortness of breath, malaise, body aches, dry cough, and shortness of breath over the past 1 week with progressively worsening symptoms over the same timeframe. EMS was notified and upon arrival the patient was found to be in distress and subsequent transported to [facility] for further care and evaluation of the aforementioned symptoms. The patient was seen and evaluated in the emergency department. All lab and imaging studies reviewed. Patient found to have a pulse oximetry of 86% with exertion on room air which is consistent with acute hypoxemic respiratory failure. Patient with chest x-ray which revealed bilateral pneumonia. Patient admitted to medical floor and initiated him on pneumonia protocol as well as coronavirus protocol. Patient knowledges fever but denies chills, chest pain, palpitation, skin rash, recent ill contacts, or known exposure to COVID-19. Prior admission on 01/21/2017 reviewed. All medication listed at time of admission has been reconciled. Patient is unvaccinated for coronavirus infection. CXR: Bilateral Pneumonia 04/17: Patient seen and examined, still uncomfortable with Hypoxic respiratory tolu lure and on oxygen, will continue to steroids therapy, start patient on Remdesivir, ID consulted, Pulmonary consult placed. 04/18: Patient seen and examined, she is currently being changed to High flow NC due to worsening HYPOXIA, will transfer to IMCU, Pulmonary and ID following. Will also give a dose of Lasix today. Monitor Inflammatory markers. 04/19: Patient seen and examined still on high flow due to hypoxia. Appears a bit more comfortable today than yesterday. Cough has decreased in frequency. We will continue high dose Dexameathasone to complete 10 days. continue on Remdesivir 200 mg IV q day x 1 followed by 100 mg IV q day x 4 days -Obtain q48-72h inflammatory markers - ferritin, Ddimer, CRP, LDH Will also give lasix daily for the next 3 days and monitor renal function. Family updated. Continue prone positioning as tolerated 04/20: Patient has some desaturation episodes yesterday was placed on BiPAP. Discussed with ICU team for bed availability for patient to be transferred up. Continue prone position as tolerated. 04/21: Patient remains with profound hypoxia secondary to COVID pneumonia. -Continue steroids -Continue remedesir -S/P Actmera 04/22: Patient remains on steroids and remdesivir. ABG shows persistent hypoxia. We will continue current management additional trial of Lasix for the next few days to see if any improvement. Monitor inflammatory markers as needed. Prognosis is guarded remains on high flow 04/23; patient was treated with remdesivir and Actemra. Continue steroid. Patient's prognosis is guarded. 04/24; patient is on steroid. Patient is currently on BiPAP. Prognosis is guarded. Pulmonary is following. Patient was given Lasix and Ativan. 04/25; continue steroid. Patient was on 40 L of high flow oxygen with saturation was 88%. Pulmonary is following. Prognosis is guarded. Patient was given lasix and ativan. (1) Acute hypoxemic respiratory failure Current Visit: Yes Status: Acute Plan to address problem: Supplemental oxygen, chest x-ray, pulse oximetry, nebulizer therapy, proposition while in bed, noninvasive positive pressure ventilation as clinically indicated. If patient is unable to maintain pulse oximetry will consider high flow supplemental oxygen. (2) Pneumonia Current Visit: Yes Status: Acute Plan to address problem: Pneumonia protocol: Chest x-ray, CBC, CMP, IV antibiotic therapy, blood culture. (3) 2019 novel coronavirus infection Current Visit: Yes Status: Acute Plan to address problem: Coronavirus protocol: IV antibiotic therapy, IV steroid therapy, vitamin C therapy, vitamin D therapy, zinc therapy, prone positioning while in bed, nebulizer therapy, supplemental oxygen, pulse oximetry. Prophylactic anticoagulation (4) Obesity hypoventilation syndrome Current Visit: Yes Status: Acute Plan to address problem: Balanced diet, increase physical activity discharge, outpatient pulmonary follow-up for sleep study. (5) DVT prophylaxis Current Visit: Yes Status: Acute Plan to address problem: SCD to bilateral lower extremities while in bed, prophylactic anticoagulation The high probability of a clinically significant, sudden or life threatening deterioration of the [Pulmonary] system(s) required my full and direct attenti on, intervention and personal management. The aggregate critical care time was [35] minutes. This time is in addition to time spent performing reported procedures but includes the following: [x] Data Review and interpretation [x] Patient assessment and monitoring of vital signs [x] Documentation [x] Medication orders and management History Interval history: Was on 4 L of high flow oxygen and O2 sat were 88% Hospitalist Physical - Physical exam Narrative exam: Patient is in respiratory distress. Patient is on 15 L of high flow oxygen and 15 L via nonrebreather mask The patient appeared well nourished and normally developed. Vital signs as documented. Head exam is unremarkable. No scleral icterus . Neck is without jugular venous distension, thyromegaly, or carotid bruits. Lungs decreased air entry. Cardiac exam reveals regular rate and Rhythm. Abdominal exam reveals normal bowel sounds, nontender, no organomegaly. Extremities are nonedematous and both femoral and pedal pulses are normal. SHOP COORDINATOR: Alert and oriented 3. No focal weakness. - Constitutional Vitals: Temp Pulse Resp BP Pulse Ox 98.1 F 97 H 32 H 100/53 86 04/25/21 07:12 04/25/21 08:15 04/25/21 08:15 04/25/21 08:15 04/25/21 08:15 General appearance: Absent: no acute distress, mild distress Results - Labs CBC & Chem 7: 04/23/21 04:52 04/23/21 04:52 Labs: Laboratory Last Values WBC 9.9 K/mm3 (4.5-11.0) 04/23/21 04:52 RBC 4.84 M/mm3 (3.65-5.03) 04/23/21 04:52 Hgb 14.2 gm/dl (10.1-14.3) 04/23/21 04:52 Hct 42.5 % (30.3-42.9) 04/23/21 04:52 MCV 88 fl (79-97) 04/23/21 04:52 MCH 29 pg (28-32) 04/23/21 04:52 MCHC 33 % (30-34) 04/23/21 04:52 RDW 15.7 % (13.2-15.2) H 04/23/21 04:52 Plt Count 405 K/mm3 (140-440) 04/23/21 04:52 Lymph % (Auto) 7.7 % (13.4-35.0) L 04/17/21 03:50 [place] % (Auto) 2.5 % (0.0-7.3) 04/17/21 03:50 Eos % (Auto) 0.0 % (0.0-4.3) 04/17/21 03:50 Baso % (Auto) 0.0 % (0.0-1.8) 04/17/21 03:50 Lymph # (Auto) 0.6 K/mm3 (1.2-5.4) L 04/17/21 03:50 [place] # (Auto) 0.2 K/mm3 (0.0-0.8) 04/17/21 03:50 Eos # (Auto) 0.0 K/mm3 (0.0-0.4) 04/17/21 03:50 Baso # (Auto) 0.0 K/mm3 (0.0-0.1) 04/17/21 03:50 Seg Neutrophils % 89.8 % (40.0-70.0) H 04/17/21 03:50 Seg Neutrophils # 6.7 K/mm3 (1.8-7.7) 04/17/21 03:50 D-Dimer 262.48 ng/mlDDU (0-234) H 04/17/21 08:26 ABG pH 7.457 (7.320-7.450) H 04/22/21 08:37 POC ABG pCO2 40.7 mmHg (32.0-48.0) 04/22/21 08:37 POC ABG pO2 49.4 mmHg (83-108) L 04/22/21 08:37 POC ABG HCO3 28.1 04/22/21 08:37 ABG O2 Saturation 85.9 (0-100) 04/22/21 08:37 POC ABG Base Excess 3.9 04/22/21 08:37 ABG Hemoglobin 14.5 (12.0-17.5) 04/22/21 08:37 ABG Oxyhemoglobin 85.6 (94-98) L 04/22/21 08:37 ABG Methemoglobin 0 (0.0-1.5) 04/22/21 08:37 ABG Sodium 138.6 mmol/L (136.0-145.0) 04/22/21 08:37 ABG Potassium 3.8 mmol/L (3.40-4.50) 04/22/21 08:37 ABG Chloride 102.0 mmol/L (98-107) 04/22/21 08:37 ABG Glucose 121 mg/dL (65-95) H 04/22/21 08:37 Carboxyhemoglobin 0.3 (0.5-1.5) L 04/22/21 08:37 FiO2 % 100.0 04/22/21 08:37 Sodium 136 mmol/L (137-145) L 04/23/21 04:52 Potassium 4.7 mmol/L (3.6-5.0) 04/23/21 04:52 Chloride 97.7 mmol/L (98-107) L 04/23/21 04:52 Carbon Dioxide 30 mmol/L (22-30) 04/23/21 04:52 Anion Gap 13 mmol/L 04/23/21 04:52 BUN 23 mg/dL (7-17) H 04/23/21 04:52 Creatinine 0.7 mg/dL (0.6-1.2) 04/23/21 04:52 Estimated GFR > 60 ml/min 04/23/21 04:52 BUN/Creatinine Ratio 33 % 04/23/21 04:52 Glucose 101 mg/dL (65-100) H 04/23/21 04:52 POC Glucose 147 mg/dL (70-105) H 04/25/21 07:06 Hemoglobin A1c 8.5 % (4-6) H 04/18/21 07:36 Calcium 8.7 mg/dL (8.4-10.2) 04/23/21 04:52 Ferritin 392.0 ng/mL (10.0-200.0) H 04/17/21 08:26 Total Bilirubin 0.40 mg/dL (0.1-1.2) 04/23/21 04:52 AST 46 units/L (5-40) H 04/23/21 04:52 ALT 44 units/L (7-56) 04/23/21 04:52 Alkaline Phosphatase 58 units/L (35-129) 04/23/21 04:52 Lactate Dehydrogenase 338 units/L (91-180) H 04/17/21 08:26 C-Reactive Protein 17.20 mg/dL (0.00-1.30) H 04/17/21 08:26 Total Protein 6.5 g/dL (6.3-8.2) 04/23/21 04:52 Albumin 3.3 g/dL (3.9-5) L 04/23/21 04:52 Albumin/Globulin Ratio 1.0 % 04/23/21 04:52 Procalcitonin < 0.05 ng/mL (<0.15) 04/17/21 08:26 Arterial Blood Glucose 121 mg/dL (65-95) H 04/22/21 08:37 Coronavirus (PCR) Positive (Negative) A 04/17/21 Unknown Amos/IV: Voiding Method External Female Catheter Active Medications - Current Medications Current Medications: Generic Name Dose Route Start Last Admin Trade Name Freq PRN Reason Stop Dose Admin Acetaminophen 650 mg 04/16/21 14:00 04/18/21 12:15 Acetaminophen 325 Mg Tab PO 650 mg Q4H PRN Administration Pain MILD(1-3)/Fever >100.5/[place] Albuterol 2.5 mg 04/16/21 13:39 04/21/21 20:39 Albuterol 2.5 Mg/3 Ml Nebu IH 2.5 mg Q4HRT PRN Administration Shortness Of Breath Ascorbic Acid 500 mg 04/24/21 10:00 04/24/21 09:29 Ascorbic Acid 500 Mg Tab PO 500 mg QDAY TUTU Administration Cholecalciferol 1,000 unit 04/17/21 10:00 04/24/21 09:28 Cholecalciferol (Vit D3) 1000 Unit (25 Mcg) Tab PO 1,000 unit QDAY TUTU Administration Dexamethasone 8 mg 04/18/21 10:00 04/24/21 09:27 Dexamethasone 4 Mg/Ml Vial IV 04/27/21 10:01 8 mg DAILY TUTU Administration Dextrose 50 ml 04/18/21 07:30 Dextrose 50% In Water (25gm) 50 Ml Syringe IV Q30MIN PRN Hypoglycemia Protocol Famotidine 20 mg 04/16/21 22:00 04/24/21 23:24 Famotidine 20 Mg Tab PO 20 mg BID TUTU Administration Heparin Sodium (Porcine) 5,000 unit 04/16/21 22:00 04/24/21 23:24 Heparin 5,000 Unit/1 Ml Vial SUB-Q 5,000 unit Q12HR TUTU Administration Hydromorphone HCl 0.5 mg 04/16/21 14:00 04/24/21 23:30 Hydromorphone 1 Mg/1 Ml Inj IV 0.5 mg Q12H PRN Administration Pain , Severe (7-10) Insulin Glargine 5 units 04/24/21 22:00 04/24/21 23:24 Insulin Glargine 100 Units/Ml SUB-Q 5 units QHS TUTU Administration Insulin Human Lispro 0 unit 04/18/21 08:00 04/25/21 08:20 Insulin Lispro 100 Unit/Ml SUB-Q Not Given ACHS [facility] Protocol Lorazepam 0.5 mg 04/24/21 10:37 Lorazepam 2 Mg/Ml Vial IV Q4H PRN Agitation Nystatin 500,000 unit 04/21/21 14:00 04/24/21 23:19 Nystatin 500,000 Unit/5 Ml Oral Liqd PO 04/28/21 10:01 500,000 unit QID TUTU Administration Ondansetron HCl 4 mg 04/16/21 14:00 Ondansetron 4 Mg/2 Ml Inj IV Q8H PRN Nausea And Vomiting Oxycodone/Acetaminophen 1 tab 04/16/21 14:00 04/24/21 01:41 Oxycodone /Acetaminophen 5-325mg Tab PO 1 tab Q12H PRN Administration Pain, Moderate (4-6) Sodium Chloride 10 ml 04/16/21 22:00 04/24/21 23:24 Sodium Chloride 0.9% 10 Ml Flush Syringe IV 10 ml BID TUTU Administration Sodium Chloride 10 ml 04/16/21 13:39 Sodium Chloride 0.9% 10 Ml Flush Syringe IV PRN PRN LINE FLUSH Zinc Sulfate 220 mg 04/16/21 22:00 04/24/21 23:24 Zinc Sulfate 220 Mg Cap PO 220 mg BID TUTU Administration Nutrition/Malnutrition Assess - Dietary Evaluation Nutrition/Malnutrition Findings: Nutrition Notes Start: 04/23/21 07:41 Freq: Status: Active Protocol: Document 04/24/21 11:00 (Rec: 04/24/21 11:05 [email or web address]) Nutrition Notes Initial or Follow up Assessment Current Diagnosis Respiratory Failure Other Pertinent Diagnosis pneu, COVID-19, hyperglycemia Current Diet Cardiac, Consistent CHO Labs/Tests POC BG 101-202 Pertinent Medications Decadron Height 5 ft Weight 69.3 kg [place] Body Weight (kg) 45.45 BMI 29.8 Weight Status Overweight Subjective/Other Information Follow up for intakes. Pt on bipap and unable to consume PO . Burn Absent Trauma Absent Current % PO Negligible Minimum of two criteria No physical signs of malnutrition #1 Nutrition Diagnosis Inadequate oral intake Etiology ARF As Evidenced by Signs and Symptoms pt on bipap and unable to consume PO Is patient on ventilator? No Is Patient Ambulatory and/or Out of Bed No REE-([facility]-confined to bed) [phone] Additional Notes Protein: (0.8-1g/kg) 55-69g Fluid: 1 ml/kcal Nutrition Intervention Change Diet Order: continue as able Goal #1 Meet needs as best as possible Anticipated Discharge Needs: Cardiac, consistent CHO Follow-Up By: 04/26/21 Additional Comments F/u: respiratory status, intakes
[2021-04-25] MEDS: HEPARIN 5,000 UNIT/1 ML VIAL SUB-Q SCH ×2 (09:54→21:24)
[2021-04-25] MEDS: dexAMETHasone 4 MG/ML VIAL IV SCH (09:54)
[2021-04-25] MEDS: NYSTATIN 500,000 UNIT/5 ML ORAL LIQD PO SCH ×4 (09:55→21:24)
[2021-04-25] MEDS: CHOLECALCIFEROL (VIT D3) 1000 UNIT (25 mcg) TAB PO SCH (09:56)
[2021-04-25] MEDS: ZINC SULFATE 220 MG CAP PO SCH ×2 (09:56→23:54)
[2021-04-25] MEDS: ASCORBIC ACID 500 MG TAB PO SCH (09:56)
[2021-04-25] MEDS: FAMOTIDINE 20 MG TAB PO SCH ×2 (09:56→21:26)
[2021-04-25] MEDS ORDERED: FUROSEMIDE 20 MG/2 ML INJ IV ONE (11:55)
--- NOTE | 2021-04-25 12:02 | Progress Note ---
Assessment and Plan 50 y/o female with acute respiratory failure secondary to COVID19 pneumonia. 04/25/21: Lasix again today. Keep PRN ativan for now. Hold on precedex for now. Guarded prognosis. Labs ordered for tomorrow. 04/24/21: Lasix today. Will also start patient on low dose PRN ativan. If this does not help will then try precedex. Guarded prognosis. 04/23/21: Prone as tolerated. No lasix today. Continue decadron. Guarded prognosis. High risk for intubation and high mortality with intubation. 04/19/21: Prone as tolerated during the day and sleep prone at night. Continue IV remdesivir and steroids. Did get actemra. Guarded prognosis. 1. Daily net negative state 2. Prone if possible 3. IV remdesivir. 4. Should be a candidate for Actemra 5. IV steroids 6. Guarded Prognosis Subjective Date of service: 04/25/21 Interval history: No acute events. Didn't get any ativan on yesterday. Sats are stable. Now on HFNC and NRB. Objective Vital Signs - 12hr 04/25/21 04/25/21 04/25/21 00:00 00:21 00:30 Temperature 98.7 F Pulse Rate 77 80 Pulse Rate [ From Monitor] Respiratory 29 H 27 H Rate Blood Pressure 107/53 104/59 O2 Sat by Pulse 88 88 Oximetry 04/25/21 04/25/21 04/25/21 01:00 01:15 01:30 Temperature Pulse Rate 81 80 76 Pulse Rate [ From Monitor] Respiratory 30 H 29 H 31 H Rate Blood Pressure 100/53 104/52 94/44 O2 Sat by Pulse 88 89 89 Oximetry 04/25/21 04/25/21 04/25/21 01:45 02:00 02:15 Temperature Pulse Rate 73 71 75 Pulse Rate [ From Monitor] Respiratory 29 H 27 H 32 H Rate Blood Pressure 102/47 98/47 104/40 O2 Sat by Pulse 89 90 88 Oximetry 04/25/21 04/25/21 04/25/21 02:30 02:45 03:00 Temperature Pulse Rate 76 73 76 Pulse Rate [ From Monitor] Respiratory 31 H 31 H 32 H Rate Blood Pressure 99/48 99/50 91/45 O2 Sat by Pulse 88 87 89 Oximetry 04/25/21 04/25/21 04/25/21 03:15 03:30 03:35 Temperature 98.9 F Pulse Rate 73 75 Pulse Rate [ From Monitor] Respiratory 29 H 30 H Rate Blood Pressure 97/46 87/52 O2 Sat by Pulse 90 91 Oximetry 04/25/21 04/25/21 04/25/21 03:45 04:00 04:15 Temperature Pulse Rate 77 73 72 Pulse Rate [ From Monitor] Respiratory 30 H 31 H 31 H Rate Blood Pressure 101/52 93/45 97/49 O2 Sat by Pulse 91 90 91 Oximetry 04/25/21 04/25/21 04/25/21 04:30 04:45 05:00 Temperature Pulse Rate 74 86 82 Pulse Rate [ From Monitor] Respiratory 31 H 28 H 25 H Rate Blood Pressure 87/45 104/59 107/53 O2 Sat by Pulse 90 90 92 Oximetry 04/25/21 04/25/21 04/25/21 05:15 05:30 05:45 Temperature Pulse Rate 100 H 83 95 H Pulse Rate [ From Monitor] Respiratory 28 H 35 H 34 H Rate Blood Pressure 102/60 102/54 102/54 O2 Sat by Pulse 92 92 89 Oximetry 04/25/21 04/25/21 04/25/21 06:00 06:15 06:30 Temperature Pulse Rate 96 H 82 83 Pulse Rate [ From Monitor] Respiratory 32 H 29 H 27 H Rate Blood Pressure 116/59 97/63 117/66 O2 Sat by Pulse 86 91 92 Oximetry 04/25/21 04/25/21 04/25/21 06:45 07:00 07:12 Temperature 98.1 F Pulse Rate 77 81 Pulse Rate [ From Monitor] Respiratory 35 H 32 H Rate Blood Pressure 107/57 101/52 O2 Sat by Pulse 92 91 Oximetry 04/25/21 04/25/21 04/25/21 07:15 07:30 07:45 Temperature Pulse Rate 77 76 76 Pulse Rate [ From Monitor] Respiratory 32 H 31 H 31 H Rate Blood Pressure 93/52 112/53 95/54 O2 Sat by Pulse 90 88 89 Oximetry 04/25/21 04/25/21 04/25/21 08:00 08:01 08:15 Temperature Pulse Rate 76 87 97 H Pulse Rate [ 76 From Monitor] Respiratory 26 H 35 H 32 H Rate Blood Pressure 58/12 100/53 O2 Sat by Pulse 88 86 86 Oximetry 04/25/21 04/25/21 04/25/21 08:30 08:45 09:00 Temperature Pulse Rate 87 83 85 Pulse Rate [ From Monitor] Respiratory 36 H 38 H 34 H Rate Blood Pressure 102/49 91/50 104/49 O2 Sat by Pulse 90 90 89 Oximetry 04/25/21 04/25/21 04/25/21 09:15 09:30 09:45 Temperature Pulse Rate 81 87 86 Pulse Rate [ From Monitor] Respiratory 32 H 33 H 32 H Rate Blood Pressure 94/52 98/54 98/54 O2 Sat by Pulse 88 87 90 Oximetry 04/25/21 04/25/21 10:01 10:15 Temperature Pulse Rate 92 H 87 Pulse Rate [ From Monitor] Respiratory 45 H 32 H Rate Blood Pressure 103/57 103/57 O2 Sat by Pulse 87 90 Oximetry Constitutional: no acute distress, other (on hiflo 100%) Eyes: non-icteric, other (sl injected) ENT: oropharynx moist, other (white plaques on tongue) Ascultation: Bilateral: diminished breath sounds Cardiovascular: regular rate and rhythm Gastrointestinal: normoactive bowel sounds, soft, non-tender, non-distended Extremities: no cyanosis Psychiatric: anxious CBC and BMP: 04/23/21 04:52 04/23/21 04:52 ABG, PT/INR, D-dimer: ABG ABG pH 7.457 (7.320-7.450) H 04/22/21 08:37 POC ABG pCO2 40.7 mmHg (32.0-48.0) 04/22/21 08:37 POC ABG pO2 49.4 mmHg (83-108) L 04/22/21 08:37 POC ABG HCO3 28.1 04/22/21 08:37 ABG O2 Saturation 85.9 (0-100) 04/22/21 08:37 PT/INR, D-dimer D-Dimer 262.48 ng/mlDDU (0-234) H 04/17/21 08:26 Abnormal lab findings: Abnormal Labs 04/16/21 04/16/21 04/16/21 11:42 11:42 11:42 WBC RDW 16.1 H Lymph % (Auto) 7.8 L Lymph # (Auto) 0.8 L Seg Neutrophils % 87.7 H Seg Neutrophils # 8.5 H D-Dimer 338.70 H ABG pH POC ABG pO2 ABG Oxyhemoglobin ABG Glucose Carboxyhemoglobin Sodium Potassium Chloride BUN Creatinine Glucose 194 H POC Glucose Hemoglobin A1c Ferritin AST Lactate Dehydrogenase C-Reactive Protein Total Protein 8.4 H Albumin 3.8 L Arterial Blood Glucose Coronavirus (PCR) 04/16/21 04/16/21 04/17/21 11:42 11:42 03:50 WBC RDW 16.0 H Lymph % (Auto) 7.7 L Lymph # (Auto) 0.6 L Seg Neutrophils % 89.8 H Seg Neutrophils # D-Dimer ABG pH POC ABG pO2 ABG Oxyhemoglobin ABG Glucose Carboxyhemoglobin Sodium Potassium Chloride BUN Creatinine Glucose 195 H POC Glucose Hemoglobin A1c Ferritin 254.3 H AST Lactate Dehydrogenase 359 H C-Reactive Protein 15.20 H Total Protein Albumin Arterial Blood Glucose Coronavirus (PCR) 04/17/21 04/17/21 04/17/21 03:50 08:26 08:26 WBC RDW Lymph % (Auto) Lymph # (Auto) Seg Neutrophils % Seg Neutrophils # D-Dimer 262.48 H ABG pH POC ABG pO2 ABG Oxyhemoglobin ABG Glucose Carboxyhemoglobin Sodium Potassium Chloride BUN 20 H Creatinine 0.5 L Glucose 249 H 225 H POC Glucose Hemoglobin A1c Ferritin AST Lactate Dehydrogenase 338 H C-Reactive Protein 17.20 H Total Protein Albumin 3.2 L Arterial Blood Glucose Coronavirus (PCR) 04/17/21 04/17/21 04/17/21 08:26 15:04 Unknown WBC RDW Lymph % (Auto) Lymph # (Auto) Seg Neutrophils % Seg Neutrophils # D-Dimer ABG pH POC ABG pO2 ABG Oxyhemoglobin ABG Glucose Carboxyhemoglobin Sodium Potassium Chloride BUN 20 H Creatinine 0.5 L Glucose 246 H POC Glucose Hemoglobin A1c Ferritin 392.0 H AST Lactate Dehydrogenase C-Reactive Protein Total Protein 8.3 H Albumin 3.1 L Arterial Blood Glucose Coronavirus (PCR) Positive A 04/18/21 04/18/21 04/18/21 05:06 05:06 07:36 WBC 11.6 H RDW 16.1 H Lymph % (Auto) Lymph # (Auto) Seg Neutrophils % Seg Neutrophils # D-Dimer ABG pH POC ABG pO2 ABG Oxyhemoglobin ABG Glucose Carboxyhemoglobin Sodium Potassium 5.2 H Chloride BUN 22 H Creatinine 0.5 L Glucose 315 H POC Glucose Hemoglobin A1c 8.5 H Ferritin AST Lactate Dehydrogenase C-Reactive Protein Total Protein Albumin 3.3 L Arterial Blood Glucose Coronavirus (PCR) 04/18/21 04/18/21 04/18/21 11:59 16:43 23:24 WBC RDW Lymph % (Auto) Lymph # (Auto) Seg Neutrophils % Seg Neutrophils # D-Dimer ABG pH POC ABG pO2 ABG Oxyhemoglobin ABG Glucose Carboxyhemoglobin Sodium Potassium Chloride BUN Creatinine Glucose POC Glucose 284 H 273 H 290 H Hemoglobin A1c Ferritin AST Lactate Dehydrogenase C-Reactive Protein Total Protein Albumin Arterial Blood Glucose Coronavirus (PCR) 04/19/21 04/19/21 04/19/21 04:19 04:19 08:10 WBC RDW 15.7 H Lymph % (Auto) Lymph # (Auto) Seg Neutrophils % Seg Neutrophils # D-Dimer ABG pH POC ABG pO2 ABG Oxyhemoglobin ABG Glucose Carboxyhemoglobin Sodium Potassium Chloride BUN 27 H Creatinine 0.4 L Glucose 184 H POC Glucose 194 H Hemoglobin A1c Ferritin AST Lactate Dehydrogenase C-Reactive Protein Total Protein Albumin 3.1 L Arterial Blood Glucose Coronavirus (PCR) 04/19/21 04/19/21 04/19/21 11:38 16:25 22:04 WBC RDW Lymph % (Auto) Lymph # (Auto) Seg Neutrophils % Seg Neutrophils # D-Dimer ABG pH POC ABG pO2 ABG Oxyhemoglobin ABG Glucose Carboxyhemoglobin Sodium Potassium Chloride BUN Creatinine Glucose POC Glucose 224 H 297 H 251 H Hemoglobin A1c Ferritin AST Lactate Dehydrogenase C-Reactive Protein Total Protein Albumin Arterial Blood Glucose Coronavirus (PCR) 04/20/21 04/20/21 04/20/21 05:28 08:43 16:21 WBC RDW Lymph % (Auto) Lymph # (Auto) Seg Neutrophils % Seg Neutrophils # D-Dimer ABG pH POC ABG pO2 ABG Oxyhemoglobin ABG Glucose Carboxyhemoglobin Sodium Potassium Chloride BUN 27 H Creatinine Glucose 192 H POC Glucose 173 H 253 H Hemoglobin A1c Ferritin AST Lactate Dehydrogenase C-Reactive Protein Total Protein Albumin 3.0 L Arterial Blood Glucose Coronavirus (PCR) 04/21/21 04/21/21 04/21/21 07:58 12:05 16:08 WBC RDW Lymph % (Auto) Lymph # (Auto) Seg Neutrophils % Seg Neutrophils # D-Dimer ABG pH POC ABG pO2 ABG Oxyhemoglobin ABG Glucose Carboxyhemoglobin Sodium Potassium Chloride BUN Creatinine Glucose POC Glucose 140 H 252 H 214 H Hemoglobin A1c Ferritin AST Lactate Dehydrogenase C-Reactive Protein Total Protein Albumin Arterial Blood Glucose Coronavirus (PCR) 04/21/21 04/22/21 04/22/21 21:42 08:37 12:01 WBC RDW Lymph % (Auto) Lymph # (Auto) Seg Neutrophils % Seg Neutrophils # D-Dimer ABG pH 7.457 H POC ABG pO2 49.4 L ABG Oxyhemoglobin 85.6 L ABG Glucose 121 H Carboxyhemoglobin 0.3 L Sodium Potassium Chloride BUN Creatinine Glucose POC Glucose 162 H 227 H Hemoglobin A1c Ferritin AST Lactate Dehydrogenase C-Reactive Protein Total Protein Albumin Arterial Blood Glucose 121 H Coronavirus (PCR) 04/22/21 04/22/21 04/23/21 16:26 22:23 04:52 WBC RDW 15.7 H Lymph % (Auto) Lymph # (Auto) Seg Neutrophils % Seg Neutrophils # D-Dimer ABG pH POC ABG pO2 ABG Oxyhemoglobin ABG Glucose Carboxyhemoglobin Sodium Potassium Chloride BUN Creatinine Glucose POC Glucose 200 H 136 H Hemoglobin A1c Ferritin AST Lactate Dehydrogenase C-Reactive Protein Total Protein Albumin Arterial Blood Glucose Coronavirus (PCR) 04/23/21 04/23/21 04/23/21 04:52 12:06 17:41 WBC RDW Lymph % (Auto) Lymph # (Auto) Seg Neutrophils % Seg Neutrophils # D-Dimer ABG pH POC ABG pO2 ABG Oxyhemoglobin ABG Glucose Carboxyhemoglobin Sodium 136 L Potassium Chloride 97.7 L BUN 23 H Creatinine Glucose 101 H POC Glucose 202 H 169 H Hemoglobin A1c Ferritin AST 46 H Lactate Dehydrogenase C-Reactive Protein Total Protein Albumin 3.3 L Arterial Blood Glucose Coronavirus (PCR) 04/23/21 04/24/21 04/24/21 23:08 05:17 08:38 WBC RDW Lymph % (Auto) Lymph # (Auto) Seg Neutrophils % Seg Neutrophils # D-Dimer ABG pH POC ABG pO2 ABG Oxyhemoglobin ABG Glucose Carboxyhemoglobin Sodium Potassium Chloride BUN Creatinine Glucose POC Glucose 111 H 108 H 126 H Hemoglobin A1c Ferritin AST Lactate Dehydrogenase C-Reactive Protein Total Protein Albumin Arterial Blood Glucose Coronavirus (PCR) 04/24/21 04/24/21 04/24/21 11:54 17:57 21:23 WBC RDW Lymph % (Auto) Lymph # (Auto) Seg Neutrophils % Seg Neutrophils # D-Dimer ABG pH POC ABG pO2 ABG Oxyhemoglobin ABG Glucose Carboxyhemoglobin Sodium Potassium Chloride BUN Creatinine Glucose POC Glucose 147 H 177 H 138 H Hemoglobin A1c Ferritin AST Lactate Dehydrogenase C-Reactive Protein Total Protein Albumin Arterial Blood Glucose Coronavirus (PCR) 04/25/21 04/25/21 07:06 11:23 WBC RDW Lymph % (Auto) Lymph # (Auto) Seg Neutrophils % Seg Neutrophils # D-Dimer ABG pH POC ABG pO2 ABG Oxyhemoglobin ABG Glucose Carboxyhemoglobin Sodium Potassium Chloride BUN Creatinine Glucose POC Glucose 147 H 169 H Hemoglobin A1c Ferritin AST Lactate Dehydrogenase C-Reactive Protein Total Protein Albumin Arterial Blood Glucose Coronavirus (PCR)
--- NOTE | 2021-04-25 17:32 | Progress Note ---
Assessment and Plan Cultures: Blood culture no growth so far Covid PCR: Positive A/P: 50-year-old female past medical history obesity, GERD, hyperlipidemia pr esents with COVID-19 pneumonia #Severe COVID-19 pneumonia: Patient presented with a week of symptoms, chest x- ray with diffuse bilateral infiltrates, admission O2 sats on room air. Inflammatory markers elevated #Acute hypoxemic respiratory failure: Likely secondary to COVID-19 infection. Currently on high flow nasal cannula/BiPAP #Obesity Recs: -Methylprednisolone, steroids per primary. Complete 10 days. -Completed Remdesivir -Obtain q48-72h inflammatory markers - ferritin, Ddimer, CRP, LDH -s/p Actemra once -Anticoagulation per hospital protocol -Proning as able Thank you for the consult, we will continue to follow. Nina Winkler MD [facility], [facility] ([facility]) O: [phone] F: [phone] Subjective Date of service: 04/25/21 Interval history: Afebrile, normal white count. On high flow nasal cannula 40 L/min Objective - Exam Narrative Exam: Physical exam deferred to reduce risk of transmission of COVID-19. Please refer to primary team's note. - Constitutional Vitals: Vital Signs Temp Pulse Resp BP Pulse Ox 98.7 F 85 31 H 98/61 90 04/25/21 15:53 04/25/21 15:45 04/25/21 15:45 04/25/21 15:45 04/25/21 15:45 Temperature -Last 24 Hours Temperature 98.7 F Temperature 98.7 F Temperature 98.1 F Temperature 98.9 F Temperature 98.7 F Temperature 98.0 F Temperature 98.0 F - Labs CBC & Chem 7: 04/23/21 04:52 04/23/21 04:52 Labs: Abnormal lab results 04/24/21 04/24/21 04/25/21 Range/Units 17:57 21:23 07:06 POC Glucose 177 H 138 H 147 H (70-105) mg/dL 04/25/21 04/25/21 Range/Units 11:23 15:43 POC Glucose 169 H 227 H (70-105) mg/dL
[2021-04-25] MEDS ORDERED: FUROSEMIDE 40 MG/4 ML INJ ONE (17:49)
[2021-04-25] MEDS: LORazepam 2 MG/ML VIAL IV PRN (21:25)
[2021-04-25] MEDS: INSULIN GLARGINE 100 UNITS/ML SUB-Q SCH (21:26)
[2021-04-26] MEDS: LORazepam 2 MG/ML VIAL IV PRN (02:37)
[2021-04-26 06:13] LABS: Blood Urea Nitrogen 20 mg/dL (7-17); Calcium 9.3 mg/dL (8.4-10.2); Hemolysis Index 76
[2021-04-26 06:23] LABS: BUN/Creatinine Ratio 33
[2021-04-26] MEDS: INSULIN LISPRO 100 UNIT/ML SUB-Q SCH ×4 (08:30→21:07)
[2021-04-26] MEDS: HEPARIN 5,000 UNIT/1 ML VIAL SUB-Q SCH ×2 (09:26→21:31)
[2021-04-26] MEDS: dexAMETHasone 4 MG/ML VIAL IV SCH (09:26)
[2021-04-26] MEDS: CHOLECALCIFEROL (VIT D3) 1000 UNIT (25 mcg) TAB PO SCH (09:27)
[2021-04-26] MEDS: ZINC SULFATE 220 MG CAP PO SCH ×2 (09:27→21:33)
[2021-04-26] MEDS: NYSTATIN 500,000 UNIT/5 ML ORAL LIQD PO SCH ×4 (09:27→21:26)
[2021-04-26] MEDS: ASCORBIC ACID 500 MG TAB PO SCH (09:27)
[2021-04-26] MEDS: FAMOTIDINE 20 MG TAB PO SCH ×2 (09:27→21:28)
--- NOTE | 2021-04-26 10:15 | Progress Note ---
Assessment and Plan Assessment and plan: 50 YO Female with GERD, Obesity, HLD presents to ED for evaluation. Patient reports "I cannot breathe". Patient states that she has experienced subjective fever, shortness of breath, malaise, body aches, dry cough, and shortness of breath over the past 1 week with progressively worsening symptoms over the same timeframe. EMS was notified and upon arrival the patient was found to be in distress and subsequent transported to [facility] for further care and evaluation of the aforementioned symptoms. The patient was seen and evaluated in the emergency department. All lab and imaging studies reviewed. Patient found to have a pulse oximetry of 86% with exertion on room air which is consistent with acute hypoxemic respiratory failure. Patient with chest x-ray which revealed bilateral pneumonia. Patient admitted to medical floor and initiated him on pneumonia protocol as well as coronavirus protocol. Patient knowledges fever but denies chills, chest pain, palpitation, skin rash, recent ill contacts, or known exposure to COVID-19. Prior admission on 01/21/2017 reviewed. All medication listed at time of admission has been reconciled. Patient is unvaccinated for coronavirus infection. CXR: Bilateral Pneumonia 04/17: Patient seen and examined, still uncomfortable with Hypoxic respiratory tolu lure and on oxygen, will continue to steroids therapy, start patient on Remdesivir, ID consulted, Pulmonary consult placed. 04/18: Patient seen and examined, she is currently being changed to High flow NC due to worsening HYPOXIA, will transfer to IMCU, Pulmonary and ID following. Will also give a dose of Lasix today. Monitor Inflammatory markers. 04/19: Patient seen and examined still on high flow due to hypoxia. Appears a bit more comfortable today than yesterday. Cough has decreased in frequency. We will continue high dose Dexameathasone to complete 10 days. continue on Remdesivir 200 mg IV q day x 1 followed by 100 mg IV q day x 4 days -Obtain q48-72h inflammatory markers - ferritin, Ddimer, CRP, LDH Will also give lasix daily for the next 3 days and monitor renal function. Family updated. Continue prone positioning as tolerated 04/20: Patient has some desaturation episodes yesterday was placed on BiPAP. Discussed with ICU team for bed availability for patient to be transferred up. Continue prone position as tolerated. 04/21: Patient remains with profound hypoxia secondary to COVID pneumonia. -Continue steroids -Continue remedesir -S/P Actmera 04/22: Patient remains on steroids and remdesivir. ABG shows persistent hypoxia. We will continue current management additional trial of Lasix for the next few days to see if any improvement. Monitor inflammatory markers as needed. Prognosis is guarded remains on high flow 04/23; patient was treated with remdesivir and Actemra. Continue steroid. Patient's prognosis is guarded. 04/24; patient is on steroid. Patient is currently on BiPAP. Prognosis is guarded. Pulmonary is following. Patient was given Lasix and Ativan. 04/25; continue steroid. Patient was on 40 L of high flow oxygen with saturation was 88%. Pulmonary is following. Prognosis is guarded. Patient was given lasix and ativan. 04/26; patient is on BiPAP and Precedex. Prognosis is guarded. (1) Acute hypoxemic respiratory failure Current Visit: Yes Status: Acute Plan to address problem: Supplemental oxygen, chest x-ray, pulse oximetry, nebulizer therapy, proposition while in bed, noninvasive positive pressure ventilation as clinically indicated. If patient is unable to maintain pulse oximetry will consider high flow supplemental oxygen. (2) Pneumonia Current Visit: Yes Status: Acute Plan to address problem: Pneumonia protocol: Chest x-ray, CBC, CMP, IV antibiotic therapy, blood culture. (3) 2019 novel coronavirus infection Current Visit: Yes Status: Acute Plan to address problem: Coronavirus protocol: IV antibiotic therapy, IV steroid therapy, vitamin C therapy, vitamin D therapy, zinc therapy, prone positioning while in bed, nebulizer therapy, supplemental oxygen, pulse oximetry. Prophylactic anticoagulation (4) Obesity hypoventilation syndrome Current Visit: Yes Status: Acute Plan to address problem: Balanced diet, increase physical activity discharge, outpatient pulmonary follow-up for sleep study. (5) DVT prophylaxis Current Visit: Yes Status: Acute Plan to address problem: SCD to bilateral lower extremities while in bed, prophylactic anticoagulation The high probability of a clinically significant, sudden or life threatening deterioration of the [Pulmonary] system(s) required my full and direct attention, intervention and personal management. The aggregate critical care time was [35] minutes. This time is in addition to time spent performing reported procedures but includes the following: [x] Data Review and interpretation [x] Patient assessment and monitoring of vital signs [x] Documentation [x] Medication orders and management History Interval history: Patient was seen and evaluated Patient was on BiPAP Hospitalist Physical - Physical exam Narrative exam: Patient is in respiratory distress. Patient is on 15 L of high flow oxygen and 15 L via nonrebreather mask The patient appeared well nourished and normally developed. Vital signs as documented. Head exam is unremarkable. No scleral icterus . Neck is without jugular venous distension, thyromegaly, or carotid bruits. Lungs decreased air entry. Cardiac exam reveals regular rate and Rhythm. Abdominal exam reveals normal bowel sounds, nontender, no organomegaly. Extremities are nonedematous and both femoral and pedal pulses are normal. [employer]: Alert and oriented 3. No focal weakness. - Constitutional Vitals: Temp Pulse Resp BP Pulse Ox 98.4 F 78 40 H 98/51 92 04/26/21 07:24 04/26/21 08:15 04/26/21 08:15 04/26/21 08:15 04/26/21 08:15 General appearance: Absent: no acute distress, mild distress Results - Labs CBC & Chem 7: 04/23/21 04:52 04/26/21 05:15 Labs: Laboratory Last Values WBC 9.9 K/mm3 (4.5-11.0) 04/23/21 04:52 RBC 4.84 M/mm3 (3.65-5.03) 04/23/21 04:52 Hgb 14.2 gm/dl (10.1-14.3) 04/23/21 04:52 Hct 42.5 % (30.3-42.9) 04/23/21 04:52 MCV 88 fl (79-97) 04/23/21 04:52 MCH 29 pg (28-32) 04/23/21 04:52 MCHC 33 % (30-34) 04/23/21 04:52 RDW 15.7 % (13.2-15.2) H 04/23/21 04:52 Plt Count 405 K/mm3 (140-440) 04/23/21 04:52 Lymph % (Auto) 7.7 % (13.4-35.0) L 04/17/21 03:50 Hanson % (Auto) 2.5 % (0.0-7.3) 04/17/21 03:50 Eos % (Auto) 0.0 % (0.0-4.3) 04/17/21 03:50 Baso % (Auto) 0.0 % (0.0-1.8) 04/17/21 03:50 Lymph # (Auto) 0.6 K/mm3 (1.2-5.4) L 04/17/21 03:50 Hanson # (Auto) 0.2 K/mm3 (0.0-0.8) 04/17/21 03:50 Eos # (Auto) 0.0 K/mm3 (0.0-0.4) 04/17/21 03:50 Baso # (Auto) 0.0 K/mm3 (0.0-0.1) 04/17/21 03:50 Seg Neutrophils % 89.8 % (40.0-70.0) H 04/17/21 03:50 Seg Neutrophils # 6.7 K/mm3 (1.8-7.7) 04/17/21 03:50 D-Dimer 262.48 ng/mlDDU (0-234) H 04/17/21 08:26 ABG pH 7.417 (7.320-7.450) 04/26/21 02:45 POC ABG pCO2 45.5 mmHg (32.0-48.0) 04/26/21 02:45 POC ABG pO2 70.7 mmHg (83-108) L 04/26/21 02:45 POC ABG HCO3 28.7 04/26/21 02:45 ABG O2 Saturation 93.9 (0-100) 04/26/21 02:45 POC ABG Base Excess 3.4 04/26/21 02:45 ABG Hemoglobin 15.1 (12.0-17.5) 04/26/21 02:45 ABG Oxyhemoglobin 93.0 (94-98) L 04/26/21 02:45 ABG Methemoglobin 0.3 (0.0-1.5) 04/26/21 02:45 ABG Sodium 132.7 mmol/L (136.0-145.0) L 04/26/21 02:45 ABG Potassium 3.8 mmol/L (3.40-4.50) 04/26/21 02:45 ABG Chloride 98.0 mmol/L (98-107) 04/26/21 02:45 ABG Glucose 115 mg/dL (65-95) H 04/26/21 02:45 Carboxyhemoglobin 0.7 (0.5-1.5) 04/26/21 02:45 FiO2 % 100.0 04/26/21 02:45 Sodium 137 mmol/L (137-145) 04/26/21 05:15 Potassium 4.3 mmol/L (3.6-5.0) 04/26/21 05:15 Chloride 95.8 mmol/L (98-107) L 04/26/21 05:15 Carbon Dioxide 32 mmol/L (22-30) H 04/26/21 05:15 Anion Gap 14 mmol/L 04/26/21 05:15 BUN 20 mg/dL (7-17) H 04/26/21 05:15 Creatinine 0.6 mg/dL (0.6-1.2) 04/26/21 05:15 Estimated GFR > 60 ml/min 04/26/21 05:15 BUN/Creatinine Ratio 33 % 04/26/21 05:15 Glucose 102 mg/dL (65-100) H 04/26/21 05:15 POC Glucose 196 mg/dL (70-105) H 04/25/21 21:22 Hemoglobin A1c 8.5 % (4-6) H 04/18/21 07:36 Calcium 9.3 mg/dL (8.4-10.2) 04/26/21 05:15 Phosphorus 3.50 mg/dL (2.5-4.5) 04/26/21 05:15 Magnesium 2.10 mg/dL (1.7-2.3) 04/26/21 05:15 Ferritin 392.0 ng/mL (10.0-200.0) H 04/17/21 08:26 Total Bilirubin 0.40 mg/dL (0.1-1.2) 04/23/21 04:52 AST 46 units/L (5-40) H 04/23/21 04:52 ALT 44 units/L (7-56) 04/23/21 04:52 Alkaline Phosphatase 58 units/L (35-129) 04/23/21 04:52 Lactate Dehydrogenase 338 units/L (91-180) H 04/17/21 08:26 C-Reactive Protein 17.20 mg/dL (0.00-1.30) H 04/17/21 08:26 Total Protein 6.5 g/dL (6.3-8.2) 04/23/21 04:52 Albumin 3.3 g/dL (3.9-5) L 04/23/21 04:52 Albumin/Globulin Ratio 1.0 % 04/23/21 04:52 Procalcitonin < 0.05 ng/mL (<0.15) 04/17/21 08:26 Arterial Blood Glucose 115 mg/dL (65-95) H 04/26/21 02:45 Arterial Blood Ionized Calcium 4.6 mg/dL (4.6-5.3) 04/26/21 02:45 Coronavirus (PCR) Positive (Negative) A 04/17/21 Unknown Amos/IV: Voiding Method External Female Catheter Active Medications - Current Medications Current Medications: Generic Name Dose Route Start Last Admin Trade Name Freq PRN Reason Stop Dose Admin Acetaminophen 650 mg 04/16/21 14:00 04/18/21 12:15 Acetaminophen 325 Mg Tab PO 650 mg Q4H PRN Administration Pain MILD(1-3)/Fever >100.5/[place] Albuterol 2.5 mg 04/16/21 13:39 04/21/21 20:39 Albuterol 2.5 Mg/3 Ml Nebu IH 2.5 mg Q4HRT PRN Administration Shortness Of Breath Ascorbic Acid 500 mg 04/24/21 10:00 04/26/21 09:27 Ascorbic Acid 500 Mg Tab PO 500 mg QDAY TUTU Administration Cholecalciferol 1,000 unit 04/17/21 10:00 04/26/21 09:27 Cholecalciferol (Vit D3) 1000 Unit (25 Mcg) Tab PO 1,000 unit QDAY TUTU Administration Dexamethasone 8 mg 04/18/21 10:00 04/26/21 09:26 Dexamethasone 4 Mg/Ml Vial IV 04/27/21 10:01 8 mg DAILY TUTU Administration Dextrose 50 ml 04/18/21 07:30 Dextrose 50% In Water (25gm) 50 Ml Syringe IV Q30MIN PRN Hypoglycemia Protocol Famotidine 20 mg 04/16/21 22:00 04/26/21 09:27 Famotidine 20 Mg Tab PO 20 mg BID TUTU Administration Heparin Sodium (Porcine) 5,000 unit 04/16/21 22:00 04/26/21 09:26 Heparin 5,000 Unit/1 Ml Vial SUB-Q 5,000 unit Q12HR TUTU Administration Hydromorphone HCl 0.5 mg 04/16/21 14:00 04/24/21 23:30 Hydromorphone 1 Mg/1 Ml Inj IV 0.5 mg Q12H PRN Administration Pain , Severe (7-10) Dexmedetomidine HCl 400 mcg/ 104 mls @ 3.604 mls/hr 04/26/21 04:00 04/26/21 04:59 Sodium Chloride IV 0.2 mcg/kg/hr TITRATE TUTU 3.604 mls/hr Administration Protocol 0.2 MCG/KG/HR Insulin Glargine 5 units 04/24/21 22:00 04/25/21 21:26 Insulin Glargine 100 Units/Ml SUB-Q 5 units QHS TUTU Administration Insulin Human Lispro 0 unit 04/18/21 08:00 04/26/21 08:30 Insulin Lispro 100 Unit/Ml SUB-Q Not Given [facility] Protocol Lorazepam 0.5 mg 04/24/21 10:37 04/26/21 02:37 Lorazepam 2 Mg/Ml Vial IV 0.5 mg Q4H PRN Administration Agitation Nystatin 500,000 unit 04/21/21 14:00 04/26/21 09:27 Nystatin 500,000 Unit/5 Ml Oral Liqd PO 04/28/21 10:01 500,000 unit QID TUTU Administration Ondansetron HCl 4 mg 04/16/21 14:00 Ondansetron 4 Mg/2 Ml Inj IV Q8H PRN Nausea And Vomiting Oxycodone/Acetaminophen 1 tab 04/16/21 14:00 04/24/21 01:41 Oxycodone /Acetaminophen 5-325mg Tab PO 1 tab Q12H PRN Administration Pain, Moderate (4-6) Sodium Chloride 10 ml 04/16/21 22:00 04/26/21 09:27 Sodium Chloride 0.9% 10 Ml Flush Syringe IV 10 ml BID TUTU Administration Sodium Chloride 10 ml 04/16/21 13:39 Sodium Chloride 0.9% 10 Ml Flush Syringe IV PRN PRN LINE FLUSH Zinc Sulfate 220 mg 04/16/21 22:00 04/26/21 09:27 Zinc Sulfate 220 Mg Cap PO 220 mg BID TUTU Administration Nutrition/Malnutrition Assess - Dietary Evaluation Nutrition/Malnutrition Findings: Nutrition Notes Start: 04/23/21 07:41 Freq: Status: Active Protocol: Document 04/24/21 11:00 (Rec: 04/24/21 11:05 [email or web address]) Nutrition Notes Initial or Follow up Assessment Current Diagnosis Respiratory Failure Other Pertinent Diagnosis pneu, COVID-19, hyperglycemia Current Diet Cardiac, Consistent CHO Labs/Tests POC BG 101-202 Pertinent Medications Decadron Height 5 ft Weight 69.3 kg [place] Body Weight (kg) 45.45 BMI 29.8 Weight Status Overweight Subjective/Other Information Follow up for intakes. Pt on bipap and unable to consume PO . Burn Absent Trauma Absent Current % PO Negligible Minimum of two criteria No physical signs of malnutrition #1 Nutrition Diagnosis Inadequate oral intake Etiology ARF As Evidenced by Signs and Symptoms pt on bipap and unable to consume PO Is patient on ventilator? No Is Patient Ambulatory and/or Out of Bed No REE-([facility]-confined to bed) 7819.220 Additional Notes Protein: (0.8-1g/kg) 55-69g Fluid: 1 ml/kcal Nutrition Intervention Change Diet Order: continue as able Goal #1 Meet needs as best as possible Anticipated Discharge Needs: Cardiac, consistent CHO Follow-Up By: 04/26/21 Additional Comments F/u: respiratory status, intakes
[2021-04-26] MEDS ORDERED: SODIUM CHLORIDE 0.9% 500 ML 500 ML IV ONE (11:30)
--- NOTE | 2021-04-26 15:20 | Progress Note ---
Assessment and Plan 50 y/o female with acute respiratory failure secondary to COVID19 pneumonia. 04/26/21: Hypotension today, most likely from precedex use and diuresis that I did the last several days. Will bolus again today. Consider midodrine if BP does not respond. 04/25/21: Lasix again today. Keep PRN ativan for now. Hold on precedex for now. Guarded prognosis. Labs ordered for tomorrow. 04/24/21: Lasix today. Will also start patient on low dose PRN ativan. If this does not help will then try precedex. Guarded prognosis. 04/23/21: Prone as tolerated. No lasix today. Continue decadron. Guarded prognosis. High risk for intubation and high mortality with intubation. 04/19/21: Prone as tolerated during the day and sleep prone at night. Continue IV remdesivir and steroids. Did get actemra. Guarded prognosis. 1. Daily net negative state 2. Prone if possible 3. IV remdesivir. 4. Should be a candidate for Actemra 5. IV steroids 6. Guarded Prognosis Subjective Date of service: 04/26/21 Interval history: Last night, called secondary to hypoxemia most likely from anxiety and pulling off mask out of anxiety. Objective Vital Signs - 12hr 04/26/21 04/26/21 04/26/21 03:30 03:33 03:45 Temperature 99 F Pulse Rate 77 77 Pulse Rate [ From Monitor] Respiratory 38 H 33 H Rate Blood Pressure 98/56 88/56 O2 Sat by Pulse 95 92 Oximetry 04/26/21 04/26/21 04/26/21 04:00 04:15 04:30 Temperature Pulse Rate 77 74 74 Pulse Rate [ From Monitor] Respiratory 28 H 35 H 33 H Rate Blood Pressure 100/59 91/53 96/57 O2 Sat by Pulse 94 95 96 Oximetry 04/26/21 04/26/21 04/26/21 04:45 05:01 05:15 Temperature Pulse Rate 74 73 73 Pulse Rate [ From Monitor] Respiratory 32 H 43 H 37 H Rate Blood Pressure 88/40 90/51 89/46 O2 Sat by Pulse 97 94 90 Oximetry 04/26/21 04/26/21 04/26/21 05:30 05:45 06:00 Temperature Pulse Rate 73 71 68 Pulse Rate [ From Monitor] Respiratory 37 H 36 H 35 H Rate Blood Pressure 99/54 97/54 99/49 O2 Sat by Pulse 93 93 95 Oximetry 04/26/21 04/26/21 04/26/21 06:15 06:30 06:45 Temperature Pulse Rate 73 72 74 Pulse Rate [ From Monitor] Respiratory 38 H 36 H 39 H Rate Blood Pressure 102/58 105/55 99/53 O2 Sat by Pulse 91 93 93 Oximetry 04/26/21 04/26/21 04/26/21 07:00 07:15 07:24 Temperature 98.4 F Pulse Rate 77 75 Pulse Rate [ From Monitor] Respiratory 47 H 42 H Rate Blood Pressure 107/60 91/37 O2 Sat by Pulse 95 92 Oximetry 04/26/21 04/26/21 04/26/21 07:30 07:45 08:00 Temperature Pulse Rate 71 75 72 Pulse Rate [ 74 From Monitor] Respiratory 34 H 38 H 35 H Rate Blood Pressure 84/43 101/51 103/54 O2 Sat by Pulse 93 91 94 Oximetry 04/26/21 04/26/21 04/26/21 08:15 08:30 08:40 Temperature Pulse Rate 78 69 Pulse Rate [ From Monitor] Respiratory 40 H 35 H Rate Blood Pressure 98/51 91/51 O2 Sat by Pulse 92 93 84 Oximetry 04/26/21 04/26/21 04/26/21 08:45 09:00 09:15 Temperature Pulse Rate 68 67 64 Pulse Rate [ From Monitor] Respiratory 36 H 36 H 37 H Rate Blood Pressure 85/49 83/46 80/47 O2 Sat by Pulse 93 94 93 Oximetry 04/26/21 04/26/21 04/26/21 09:31 09:45 10:01 Temperature Pulse Rate 70 72 65 Pulse Rate [ From Monitor] Respiratory 53 H 52 H 33 H Rate Blood Pressure 80/47 79/47 79/47 O2 Sat by Pulse 87 83 L 92 Oximetry 04/26/21 04/26/21 04/26/21 10:15 10:31 10:45 Temperature Pulse Rate 67 70 74 Pulse Rate [ From Monitor] Respiratory 36 H 34 H 35 H Rate Blood Pressure 79/47 102/31 102/31 O2 Sat by Pulse 95 96 95 Oximetry 04/26/21 04/26/21 04/26/21 11:00 11:15 11:30 Temperature Pulse Rate 78 75 76 Pulse Rate [ From Monitor] Respiratory 40 H 36 H 34 H Rate Blood Pressure 99/54 97/49 94/52 O2 Sat by Pulse 92 91 93 Oximetry 04/26/21 04/26/21 04/26/21 11:45 12:00 12:22 Temperature 98.1 F Pulse Rate 76 70 Pulse Rate [ 70 From Monitor] Respiratory 38 H 35 H Rate Blood Pressure 105/45 97/47 O2 Sat by Pulse 93 96 Oximetry Constitutional: no acute distress, other (on hiflo 100%) Eyes: non-icteric, other (sl injected) ENT: oropharynx moist, other (white plaques on tongue) Ascultation: Bilateral: diminished breath sounds Cardiovascular: regular rate and rhythm Gastrointestinal: normoactive bowel sounds, soft, non-tender, non-distended Extremities: no cyanosis Psychiatric: anxious CBC and BMP: 04/23/21 04:52 04/26/21 05:15 ABG, PT/INR, D-dimer: ABG ABG pH 7.417 (7.320-7.450) 04/26/21 02:45 POC ABG pCO2 45.5 mmHg (32.0-48.0) 04/26/21 02:45 POC ABG pO2 70.7 mmHg (83-108) L 04/26/21 02:45 POC ABG HCO3 28.7 04/26/21 02:45 ABG O2 Saturation 93.9 (0-100) 04/26/21 02:45 PT/INR, D-dimer D-Dimer 262.48 ng/mlDDU (0-234) H 04/17/21 08:26 Abnormal lab findings: Abnormal Labs 04/16/21 04/16/21 04/16/21 11:42 11:42 11:42 WBC RDW 16.1 H Lymph % (Auto) 7.8 L Lymph # (Auto) 0.8 L Seg Neutrophils % 87.7 H Seg Neutrophils # 8.5 H D-Dimer 338.70 H ABG pH POC ABG pO2 ABG Oxyhemoglobin ABG Sodium ABG Glucose Carboxyhemoglobin Sodium Potassium Chloride Carbon Dioxide BUN Creatinine Glucose 194 H POC Glucose Hemoglobin A1c Ferritin AST Lactate Dehydrogenase C-Reactive Protein Total Protein 8.4 H Albumin 3.8 L Arterial Blood Glucose Coronavirus (PCR) 04/16/21 04/16/21 04/17/21 11:42 11:42 03:50 WBC RDW 16.0 H Lymph % (Auto) 7.7 L Lymph # (Auto) 0.6 L Seg Neutrophils % 89.8 H Seg Neutrophils # D-Dimer ABG pH POC ABG pO2 ABG Oxyhemoglobin ABG Sodium ABG Glucose Carboxyhemoglobin Sodium Potassium Chloride Carbon Dioxide BUN Creatinine Glucose 195 H POC Glucose Hemoglobin A1c Ferritin 254.3 H AST Lactate Dehydrogenase 359 H C-Reactive Protein 15.20 H Total Protein Albumin Arterial Blood Glucose Coronavirus (PCR) 04/17/21 04/17/21 04/17/21 03:50 08:26 08:26 WBC RDW Lymph % (Auto) Lymph # (Auto) Seg Neutrophils % Seg Neutrophils # D-Dimer 262.48 H ABG pH POC ABG pO2 ABG Oxyhemoglobin ABG Sodium ABG Glucose Carboxyhemoglobin Sodium Potassium Chloride Carbon Dioxide BUN 20 H Creatinine 0.5 L Glucose 249 H 225 H POC Glucose Hemoglobin A1c Ferritin AST Lactate Dehydrogenase 338 H C-Reactive Protein 17.20 H Total Protein Albumin 3.2 L Arterial Blood Glucose Coronavirus (PCR) 04/17/21 04/17/21 04/17/21 08:26 15:04 Unknown WBC RDW Lymph % (Auto) Lymph # (Auto) Seg Neutrophils % Seg Neutrophils # D-Dimer ABG pH POC ABG pO2 ABG Oxyhemoglobin ABG Sodium ABG Glucose Carboxyhemoglobin Sodium Potassium Chloride Carbon Dioxide BUN 20 H Creatinine 0.5 L Glucose 246 H POC Glucose Hemoglobin A1c Ferritin 392.0 H AST Lactate Dehydrogenase C-Reactive Protein Total Protein 8.3 H Albumin 3.1 L Arterial Blood Glucose Coronavirus (PCR) Positive A 04/18/21 04/18/21 04/18/21 05:06 05:06 07:36 WBC 11.6 H RDW 16.1 H Lymph % (Auto) Lymph # (Auto) Seg Neutrophils % Seg Neutrophils # D-Dimer ABG pH POC ABG pO2 ABG Oxyhemoglobin ABG Sodium ABG Glucose Carboxyhemoglobin Sodium Potassium 5.2 H Chloride Carbon Dioxide BUN 22 H Creatinine 0.5 L Glucose 315 H POC Glucose Hemoglobin A1c 8.5 H Ferritin AST Lactate Dehydrogenase C-Reactive Protein Total Protein Albumin 3.3 L Arterial Blood Glucose Coronavirus (PCR) 04/18/21 04/18/21 04/18/21 11:59 16:43 23:24 WBC RDW Lymph % (Auto) Lymph # (Auto) Seg Neutrophils % Seg Neutrophils # D-Dimer ABG pH POC ABG pO2 ABG Oxyhemoglobin ABG Sodium ABG Glucose Carboxyhemoglobin Sodium Potassium Chloride Carbon Dioxide BUN Creatinine Glucose POC Glucose 284 H 273 H 290 H Hemoglobin A1c Ferritin AST Lactate Dehydrogenase C-Reactive Protein Total Protein Albumin Arterial Blood Glucose Coronavirus (PCR) 04/19/21 04/19/21 04/19/21 04:19 04:19 08:10 WBC RDW 15.7 H Lymph % (Auto) Lymph # (Auto) Seg Neutrophils % Seg Neutrophils # D-Dimer ABG pH POC ABG pO2 ABG Oxyhemoglobin ABG Sodium ABG Glucose Carboxyhemoglobin Sodium Potassium Chloride Carbon Dioxide BUN 27 H Creatinine 0.4 L Glucose 184 H POC Glucose 194 H Hemoglobin A1c Ferritin AST Lactate Dehydrogenase C-Reactive Protein Total Protein Albumin 3.1 L Arterial Blood Glucose Coronavirus (PCR) 04/19/21 04/19/21 04/19/21 11:38 16:25 22:04 WBC RDW Lymph % (Auto) Lymph # (Auto) Seg Neutrophils % Seg Neutrophils # D-Dimer ABG pH POC ABG pO2 ABG Oxyhemoglobin ABG Sodium ABG Glucose Carboxyhemoglobin Sodium Potassium Chloride Carbon Dioxide BUN Creatinine Glucose POC Glucose 224 H 297 H 251 H Hemoglobin A1c Ferritin AST Lactate Dehydrogenase C-Reactive Protein Total Protein Albumin Arterial Blood Glucose Coronavirus (PCR) 04/20/21 04/20/21 04/20/21 05:28 08:43 16:21 WBC RDW Lymph % (Auto) Lymph # (Auto) Seg Neutrophils % Seg Neutrophils # D-Dimer ABG pH POC ABG pO2 ABG Oxyhemoglobin ABG Sodium ABG Glucose Carboxyhemoglobin Sodium Potassium Chloride Carbon Dioxide BUN 27 H Creatinine Glucose 192 H POC Glucose 173 H 253 H Hemoglobin A1c Ferritin AST Lactate Dehydrogenase C-Reactive Protein Total Protein Albumin 3.0 L Arterial Blood Glucose Coronavirus (PCR) 04/21/21 04/21/21 04/21/21 07:58 12:05 16:08 WBC RDW Lymph % (Auto) Lymph # (Auto) Seg Neutrophils % Seg Neutrophils # D-Dimer ABG pH POC ABG pO2 ABG Oxyhemoglobin ABG Sodium ABG Glucose Carboxyhemoglobin Sodium Potassium Chloride Carbon Dioxide BUN Creatinine Glucose POC Glucose 140 H 252 H 214 H Hemoglobin A1c Ferritin AST Lactate Dehydrogenase C-Reactive Protein Total Protein Albumin Arterial Blood Glucose Coronavirus (PCR) 04/21/21 04/22/21 04/22/21 21:42 08:37 12:01 WBC RDW Lymph % (Auto) Lymph # (Auto) Seg Neutrophils % Seg Neutrophils # D-Dimer ABG pH 7.457 H POC ABG pO2 49.4 L ABG Oxyhemoglobin 85.6 L ABG Sodium ABG Glucose 121 H Carboxyhemoglobin 0.3 L Sodium Potassium Chloride Carbon Dioxide BUN Creatinine Glucose POC Glucose 162 H 227 H Hemoglobin A1c Ferritin AST Lactate Dehydrogenase C-Reactive Protein Total Protein Albumin Arterial Blood Glucose 121 H Coronavirus (PCR) 04/22/21 04/22/21 04/23/21 16:26 22:23 04:52 WBC RDW 15.7 H Lymph % (Auto) Lymph # (Auto) Seg Neutrophils % Seg Neutrophils # D-Dimer ABG pH POC ABG pO2 ABG Oxyhemoglobin ABG Sodium ABG Glucose Carboxyhemoglobin Sodium Potassium Chloride Carbon Dioxide BUN Creatinine Glucose POC Glucose 200 H 136 H Hemoglobin A1c Ferritin AST Lactate Dehydrogenase C-Reactive Protein Total Protein Albumin Arterial Blood Glucose Coronavirus (PCR) 04/23/21 04/23/21 04/23/21 04:52 12:06 17:41 WBC RDW Lymph % (Auto) Lymph # (Auto) Seg Neutrophils % Seg Neutrophils # D-Dimer ABG pH POC ABG pO2 ABG Oxyhemoglobin ABG Sodium ABG Glucose Carboxyhemoglobin Sodium 136 L Potassium Chloride 97.7 L Carbon Dioxide BUN 23 H Creatinine Glucose 101 H POC Glucose 202 H 169 H Hemoglobin A1c Ferritin AST 46 H Lactate Dehydrogenase C-Reactive Protein Total Protein Albumin 3.3 L Arterial Blood Glucose Coronavirus (PCR) 04/23/21 04/24/21 04/24/21 23:08 05:17 08:38 WBC RDW Lymph % (Auto) Lymph # (Auto) Seg Neutrophils % Seg Neutrophils # D-Dimer ABG pH POC ABG pO2 ABG Oxyhemoglobin ABG Sodium ABG Glucose Carboxyhemoglobin Sodium Potassium Chloride Carbon Dioxide BUN Creatinine Glucose POC Glucose 111 H 108 H 126 H Hemoglobin A1c Ferritin AST Lactate Dehydrogenase C-Reactive Protein Total Protein Albumin Arterial Blood Glucose Coronavirus (PCR) 04/24/21 04/24/21 04/24/21 11:54 17:57 21:23 WBC RDW Lymph % (Auto) Lymph # (Auto) Seg Neutrophils % Seg Neutrophils # D-Dimer ABG pH POC ABG pO2 ABG Oxyhemoglobin ABG Sodium ABG Glucose Carboxyhemoglobin Sodium Potassium Chloride Carbon Dioxide BUN Creatinine Glucose POC Glucose 147 H 177 H 138 H Hemoglobin A1c Ferritin AST Lactate Dehydrogenase C-Reactive Protein Total Protein Albumin Arterial Blood Glucose Coronavirus (PCR) 04/25/21 04/25/21 04/25/21 07:06 11:23 15:43 WBC RDW Lymph % (Auto) Lymph # (Auto) Seg Neutrophils % Seg Neutrophils # D-Dimer ABG pH POC ABG pO2 ABG Oxyhemoglobin ABG Sodium ABG Glucose Carboxyhemoglobin Sodium Potassium Chloride Carbon Dioxide BUN Creatinine Glucose POC Glucose 147 H 169 H 227 H Hemoglobin A1c Ferritin AST Lactate Dehydrogenase C-Reactive Protein Total Protein Albumin Arterial Blood Glucose Coronavirus (PCR) 04/25/21 04/26/21 04/26/21 21:22 02:45 05:15 WBC RDW Lymph % (Auto) Lymph # (Auto) Seg Neutrophils % Seg Neutrophils # D-Dimer ABG pH POC ABG pO2 70.7 L ABG Oxyhemoglobin 93.0 L ABG Sodium 132.7 L ABG Glucose 115 H Carboxyhemoglobin Sodium Potassium Chloride 95.8 L Carbon Dioxide 32 H BUN 20 H Creatinine Glucose 102 H POC Glucose 196 H Hemoglobin A1c Ferritin AST Lactate Dehydrogenase C-Reactive Protein Total Protein Albumin Arterial Blood Glucose 115 H Coronavirus (PCR) 04/26/21 11:49 WBC RDW Lymph % (Auto) Lymph # (Auto) Seg Neutrophils % Seg Neutrophils # D-Dimer ABG pH POC ABG pO2 ABG Oxyhemoglobin ABG Sodium ABG Glucose Carboxyhemoglobin Sodium Potassium Chloride Carbon Dioxide BUN Creatinine Glucose POC Glucose 114 H Hemoglobin A1c Ferritin AST Lactate Dehydrogenase C-Reactive Protein Total Protein Albumin Arterial Blood Glucose Coronavirus (PCR)
[2021-04-26] MEDS ORDERED: SODIUM CHLORIDE 0.9% 1000 ML 1,000 ML IV ONE ×2 (16:07→19:30)
--- NOTE | 2021-04-26 17:25 | Progress Note ---
Assessment and Plan Cultures: Blood culture no growth so far Covid PCR: Positive A/P: 50-year-old female past medical history obesity, GERD, hyperlipidemia pr esents with COVID-19 pneumonia #Severe COVID-19 pneumonia: Patient presented with a week of symptoms, chest x- ray with diffuse bilateral infiltrates, admission O2 sats on room air. Inflammatory markers elevated #Acute hypoxemic respiratory failure: Likely secondary to COVID-19 infection. Currently on high flow nasal cannula/BiPAP #Obesity Recs: -Methylprednisolone, steroids per primary. Complete 10 days. -Completed Remdesivir -Obtain q48-72h inflammatory markers - ferritin, Ddimer, CRP, LDH -s/p Actemra once -Anticoagulation per hospital protocol -Proning as able Thank you for the consult, we will sign off. Please call with questions. Nina Winkler MD [facility] ([facility]) O: [phone] F: [phone] Subjective Date of service: 04/26/21 Interval history: Afebrile, remains in the ICU. Requiring BiPAP and high flow nasal cannula. Objective - Exam Narrative Exam: Physical exam deferred to reduce risk of transmission of COVID-19. Please refer to primary team's note. - Constitutional Vitals: Vital Signs Temp Pulse Resp BP Pulse Ox 98.1 F 64 37 H 89/40 94 04/26/21 16:35 04/26/21 16:00 04/26/21 16:00 04/26/21 16:00 04/26/21 16:00 Temperature -Last 24 Hours Temperature 98.1 F Temperature 98.1 F Temperature 98.4 F Temperature 99 F Temperature 98.4 F Temperature 98 F - Labs CBC & Chem 7: 04/23/21 04:52 04/26/21 05:15 Labs: Abnormal lab results 04/25/21 04/26/21 04/26/21 Range/Units 21:22 02:45 05:15 POC ABG pO2 70.7 L (83-108) mmHg ABG Oxyhemoglobin 93.0 L (94-98) ABG Sodium 132.7 L (136.0-145.0) mmol/L ABG Glucose 115 H (65-95) mg/dL Chloride 95.8 L (98-107) mmol/L Carbon Dioxide 32 H (22-30) mmol/L BUN 20 H (7-17) mg/dL Glucose 102 H (65-100) mg/dL POC Glucose 196 H (70-105) mg/dL Arterial Blood Glucose 115 H (65-95) mg/dL 04/26/21 04/26/21 Range/Units 11:49 16:09 POC ABG pO2 (83-108) mmHg ABG Oxyhemoglobin (94-98) ABG Sodium (136.0-145.0) mmol/L ABG Glucose (65-95) mg/dL Chloride (98-107) mmol/L Carbon Dioxide (22-30) mmol/L BUN (7-17) mg/dL Glucose (65-100) mg/dL POC Glucose 114 H 188 H (70-105) mg/dL Arterial Blood Glucose (65-95) mg/dL
[2021-04-26] MEDS: INSULIN GLARGINE 100 UNITS/ML SUB-Q SCH (21:27)
--- NOTE | 2021-04-27 02:35 | Progress Note ---
Assessment and Plan 50 y/o female with acute respiratory failure secondary to COVID19 pneumonia. 04/27/21: Hypotension improving/improved. Hold on any further lasix dosing. Continue precedex to help with anxeity. later today please attempt HFNC with NRB if needed. Attempt to feed if possible. Steroids end today, please order solumedrol 40q8 to start tomorrow (04/28/21). guarded prognosis. 04/26/21: Hypotension today, most likely from precedex use and diuresis that I did the last several days. Will bolus again today. Consider midodrine if BP does not respond. 04/25/21: Lasix again today. Keep PRN ativan for now. Hold on precedex for now. Guarded prognosis. Labs ordered for tomorrow. 04/24/21: Lasix today. Will also start patient on low dose PRN ativan. If this does not help will then try precedex. Guarded prognosis. 04/23/21: Prone as tolerated. No lasix today. Continue decadron. Guarded prognosis. High risk for intubation and high mortality with intubation. 04/19/21: Prone as tolerated during the day and sleep prone at night. Continue IV remdesivir and steroids. Did get actemra. Guarded prognosis. 1. Daily net negative state 2. Prone if possible 3. IV remdesivir. 4. Should be a candidate for Actemra 5. IV steroids 6. Guarded Prognosis Subjective Date of service: 04/27/21 Interval history: BP better after third bolus earlier this evening. Satting in the 90's. Asleep. Objective Vital Signs - 12hr 04/26/21 04/26/21 04/26/21 14:45 15:00 15:15 Temperature Pulse Rate 62 63 63 Pulse Rate [ From Monitor] Respiratory 34 H 36 H 38 H Rate Blood Pressure 93/44 86/40 88/49 O2 Sat by Pulse 91 90 92 Oximetry 04/26/21 04/26/21 04/26/21 15:30 15:45 16:00 Temperature Pulse Rate 61 62 65 Pulse Rate [ 64 From Monitor] Respiratory 37 H 36 H 38 H Rate Blood Pressure 88/49 95/40 89/40 O2 Sat by Pulse 93 92 93 Oximetry 04/26/21 04/26/21 04/26/21 16:15 16:31 16:35 Temperature 98.1 F Pulse Rate 64 64 Pulse Rate [ From Monitor] Respiratory 36 H 38 H Rate Blood Pressure 99/42 100/46 O2 Sat by Pulse 91 91 Oximetry 04/26/21 04/26/21 04/26/21 16:45 17:00 17:15 Temperature Pulse Rate 66 66 81 Pulse Rate [ From Monitor] Respiratory 40 H 40 H 27 H Rate Blood Pressure 100/46 100/46 95/50 O2 Sat by Pulse 90 92 88 Oximetry 04/26/21 04/26/21 04/26/21 17:30 17:45 18:00 Temperature Pulse Rate 66 59 L 55 L Pulse Rate [ From Monitor] Respiratory 41 H 35 H 32 H Rate Blood Pressure 92/39 82/39 86/36 O2 Sat by Pulse 88 89 90 Oximetry 04/26/21 04/26/21 04/26/21 18:15 18:30 18:34 Temperature Pulse Rate 60 60 62 Pulse Rate [ From Monitor] Respiratory 40 H 32 H 45 H Rate Blood Pressure 94/44 95/44 94/44 O2 Sat by Pulse 91 91 93 Oximetry 04/26/21 04/26/21 04/26/21 18:45 19:00 19:15 Temperature Pulse Rate 58 L 56 L 61 Pulse Rate [ 64 From Monitor] Respiratory 33 H 32 H 38 H Rate Blood Pressure 96/42 88/38 95/45 O2 Sat by Pulse 92 91 90 Oximetry 04/26/21 04/26/21 04/26/21 19:31 19:38 19:45 Temperature 98.9 F Pulse Rate 58 L 59 L Pulse Rate [ From Monitor] Respiratory 39 H 34 H Rate Blood Pressure 94/42 108/58 O2 Sat by Pulse 90 92 Oximetry 04/26/21 04/26/21 04/26/21 19:58 20:00 20:01 Temperature Pulse Rate 58 L 60 Pulse Rate [ From Monitor] Respiratory 29 H 28 H Rate Blood Pressure 108/58 111/50 O2 Sat by Pulse 95 92 95 Oximetry 04/26/21 04/26/21 04/26/21 20:15 20:30 20:45 Temperature Pulse Rate 62 65 57 L Pulse Rate [ From Monitor] Respiratory 32 H 41 H 31 H Rate Blood Pressure 104/54 105/42 103/43 O2 Sat by Pulse 90 88 89 Oximetry 04/26/21 04/26/2121 21:00 21:15 21:31 Temperature Pulse Rate 60 60 59 L Pulse Rate [ From Monitor] Respiratory 36 H 36 H 33 H Rate Blood Pressure 102/51 99/52 93/45 O2 Sat by Pulse 90 88 91 Oximetry 04/26/21 04/26/21 04/26/21 21:45 22:00 22:15 Temperature Pulse Rate 58 L 58 L 57 L Pulse Rate [ From Monitor] Respiratory 35 H 39 H 37 H Rate Blood Pressure 92/50 103/50 110/53 O2 Sat by Pulse 89 89 90 Oximetry 04/26/21 04/26/21 04/26/21 22:22 22:30 22:45 Temperature Pulse Rate 57 L 56 L 54 L Pulse Rate [ 64 From Monitor] Respiratory 36 H 37 H 30 H Rate Blood Pressure 114/56 110/50 O2 Sat by Pulse 94 89 90 Oximetry 04/26/21 04/26/21 04/26/21 23:00 23:15 23:30 Temperature Pulse Rate 53 L 53 L 54 L Pulse Rate [ 50 L From Monitor] Respiratory 28 H 28 H 29 H Rate Blood Pressure 109/54 110/54 99/52 O2 Sat by Pulse 91 91 95 Oximetry 04/26/21 04/27/21 04/27/21 23:45 00:00 00:01 Temperature 97.8 F Pulse Rate 51 L 50 L Pulse Rate [ 50 L From Monitor] Respiratory 29 H 29 H Rate Blood Pressure 101/52 107/55 O2 Sat by Pulse 91 94 Oximetry 04/27/21 04/27/21 04/27/21 00:15 00:30 00:45 Temperature Pulse Rate 52 L 52 L 54 L Pulse Rate [ From Monitor] Respiratory 30 H 30 H 31 H Rate Blood Pressure 105/53 110/56 104/63 O2 Sat by Pulse 90 91 91 Oximetry 04/27/21 04/27/21 01:00 02:00 Temperature Pulse Rate 52 L Pulse Rate [ From Monitor] Respiratory 31 H Rate Blood Pressure 111/54 O2 Sat by Pulse 89 93 Oximetry Constitutional: no acute distress, other (on hiflo 100%) Eyes: non-icteric, other (sl injected) ENT: oropharynx moist, other (white plaques on tongue) Ascultation: Bilateral: diminished breath sounds Cardiovascular: regular rate and rhythm Gastrointestinal: normoactive bowel sounds, soft, non-tender, non-distended Extremities: no cyanosis Psychiatric: anxious CBC and BMP: 04/23/21 04:52 04/26/21 05:15 ABG, PT/INR, D-dimer: ABG ABG pH 7.417 (7.320-7.450) 04/26/21 02:45 POC ABG pCO2 45.5 mmHg (32.0-48.0) 04/26/21 02:45 POC ABG pO2 70.7 mmHg (83-108) L 04/26/21 02:45 POC ABG HCO3 28.7 04/26/21 02:45 ABG O2 Saturation 93.9 (0-100) 04/26/21 02:45 PT/INR, D-dimer D-Dimer 262.48 ng/mlDDU (0-234) H 04/17/21 08:26 Abnormal lab findings: Abnormal Labs 04/16/21 04/16/21 04/16/21 11:42 11:42 11:42 WBC RDW 16.1 H Lymph % (Auto) 7.8 L Lymph # (Auto) 0.8 L Seg Neutrophils % 87.7 H Seg Neutrophils # 8.5 H D-Dimer 338.70 H ABG pH POC ABG pO2 ABG Oxyhemoglobin ABG Sodium ABG Glucose Carboxyhemoglobin Sodium Potassium Chloride Carbon Dioxide BUN Creatinine Glucose 194 H POC Glucose Hemoglobin A1c Ferritin AST Lactate Dehydrogenase C-Reactive Protein Total Protein 8.4 H Albumin 3.8 L Arterial Blood Glucose Coronavirus (PCR) 04/16/21 04/16/21 04/17/21 11:42 11:42 03:50 WBC RDW 16.0 H Lymph % (Auto) 7.7 L Lymph # (Auto) 0.6 L Seg Neutrophils % 89.8 H Seg Neutrophils # D-Dimer ABG pH POC ABG pO2 ABG Oxyhemoglobin ABG Sodium ABG Glucose Carboxyhemoglobin Sodium Potassium Chloride Carbon Dioxide BUN Creatinine Glucose 195 H POC Glucose Hemoglobin A1c Ferritin 254.3 H AST Lactate Dehydrogenase 359 H C-Reactive Protein 15.20 H Total Protein Albumin Arterial Blood Glucose Coronavirus (PCR) 04/17/21 04/17/21 04/17/21 03:50 08:26 08:26 WBC RDW Lymph % (Auto) Lymph # (Auto) Seg Neutrophils % Seg Neutrophils # D-Dimer 262.48 H ABG pH POC ABG pO2 ABG Oxyhemoglobin ABG Sodium ABG Glucose Carboxyhemoglobin Sodium Potassium Chloride Carbon Dioxide BUN 20 H Creatinine 0.5 L Glucose 249 H 225 H POC Glucose Hemoglobin A1c Ferritin AST Lactate Dehydrogenase 338 H C-Reactive Protein 17.20 H Total Protein Albumin 3.2 L Arterial Blood Glucose Coronavirus (PCR) 04/17/21 04/17/21 04/17/21 08:26 15:04 Unknown WBC RDW Lymph % (Auto) Lymph # (Auto) Seg Neutrophils % Seg Neutrophils # D-Dimer ABG pH POC ABG pO2 ABG Oxyhemoglobin ABG Sodium ABG Glucose Carboxyhemoglobin Sodium Potassium Chloride Carbon Dioxide BUN 20 H Creatinine 0.5 L Glucose 246 H POC Glucose Hemoglobin A1c Ferritin 392.0 H AST Lactate Dehydrogenase C-Reactive Protein Total Protein 8.3 H Albumin 3.1 L Arterial Blood Glucose Coronavirus (PCR) Positive A 04/18/21 04/18/21 04/18/21 05:06 05:06 07:36 WBC 11.6 H RDW 16.1 H Lymph % (Auto) Lymph # (Auto) Seg Neutrophils % Seg Neutrophils # D-Dimer ABG pH POC ABG pO2 ABG Oxyhemoglobin ABG Sodium ABG Glucose Carboxyhemoglobin Sodium Potassium 5.2 H Chloride Carbon Dioxide BUN 22 H Creatinine 0.5 L Glucose 315 H POC Glucose Hemoglobin A1c 8.5 H Ferritin AST Lactate Dehydrogenase C-Reactive Protein Total Protein Albumin 3.3 L Arterial Blood Glucose Coronavirus (PCR) 04/18/21 04/18/21 04/18/21 11:59 16:43 23:24 WBC RDW Lymph % (Auto) Lymph # (Auto) Seg Neutrophils % Seg Neutrophils # D-Dimer ABG pH POC ABG pO2 ABG Oxyhemoglobin ABG Sodium ABG Glucose Carboxyhemoglobin Sodium Potassium Chloride Carbon Dioxide BUN Creatinine Glucose POC Glucose 284 H 273 H 290 H Hemoglobin A1c Ferritin AST Lactate Dehydrogenase C-Reactive Protein Total Protein Albumin Arterial Blood Glucose Coronavirus (PCR) 04/19/21 04/19/21 04/19/21 04:19 04:19 08:10 WBC RDW 15.7 H Lymph % (Auto) Lymph # (Auto) Seg Neutrophils % Seg Neutrophils # D-Dimer ABG pH POC ABG pO2 ABG Oxyhemoglobin ABG Sodium ABG Glucose Carboxyhemoglobin Sodium Potassium Chloride Carbon Dioxide BUN 27 H Creatinine 0.4 L Glucose 184 H POC Glucose 194 H Hemoglobin A1c Ferritin AST Lactate Dehydrogenase C-Reactive Protein Total Protein Albumin 3.1 L Arterial Blood Glucose Coronavirus (PCR) 04/19/21 04/19/21 04/19/21 11:38 16:25 22:04 WBC RDW Lymph % (Auto) Lymph # (Auto) Seg Neutrophils % Seg Neutrophils # D-Dimer ABG pH POC ABG pO2 ABG Oxyhemoglobin ABG Sodium ABG Glucose Carboxyhemoglobin Sodium Potassium Chloride Carbon Dioxide BUN Creatinine Glucose POC Glucose 224 H 297 H 251 H Hemoglobin A1c Ferritin AST Lactate Dehydrogenase C-Reactive Protein Total Protein Albumin Arterial Blood Glucose Coronavirus (PCR) 04/20/21 04/20/21 04/20/21 05:28 08:43 16:21 WBC RDW Lymph % (Auto) Lymph # (Auto) Seg Neutrophils % Seg Neutrophils # D-Dimer ABG pH POC ABG pO2 ABG Oxyhemoglobin ABG Sodium ABG Glucose Carboxyhemoglobin Sodium Potassium Chloride Carbon Dioxide BUN 27 H Creatinine Glucose 192 H POC Glucose 173 H 253 H Hemoglobin A1c Ferritin AST Lactate Dehydrogenase C-Reactive Protein Total Protein Albumin 3.0 L Arterial Blood Glucose Coronavirus (PCR) 04/21/21 04/21/21 04/21/21 07:58 12:05 16:08 WBC RDW Lymph % (Auto) Lymph # (Auto) Seg Neutrophils % Seg Neutrophils # D-Dimer ABG pH POC ABG pO2 ABG Oxyhemoglobin ABG Sodium ABG Glucose Carboxyhemoglobin Sodium Potassium Chloride Carbon Dioxide BUN Creatinine Glucose POC Glucose 140 H 252 H 214 H Hemoglobin A1c Ferritin AST Lactate Dehydrogenase C-Reactive Protein Total Protein Albumin Arterial Blood Glucose Coronavirus (PCR) 04/21/21 04/22/21 04/22/21 21:42 08:37 12:01 WBC RDW Lymph % (Auto) Lymph # (Auto) Seg Neutrophils % Seg Neutrophils # D-Dimer ABG pH 7.457 H POC ABG pO2 49.4 L ABG Oxyhemoglobin 85.6 L ABG Sodium ABG Glucose 121 H Carboxyhemoglobin 0.3 L Sodium Potassium Chloride Carbon Dioxide BUN Creatinine Glucose POC Glucose 162 H 227 H Hemoglobin A1c Ferritin AST Lactate Dehydrogenase C-Reactive Protein Total Protein Albumin Arterial Blood Glucose 121 H Coronavirus (PCR) 04/22/21 04/22/21 04/23/21 16:26 22:23 04:52 WBC RDW 15.7 H Lymph % (Auto) Lymph # (Auto) Seg Neutrophils % Seg Neutrophils # D-Dimer ABG pH POC ABG pO2 ABG Oxyhemoglobin ABG Sodium ABG Glucose Carboxyhemoglobin Sodium Potassium Chloride Carbon Dioxide BUN Creatinine Glucose POC Glucose 200 H 136 H Hemoglobin A1c Ferritin AST Lactate Dehydrogenase C-Reactive Protein Total Protein Albumin Arterial Blood Glucose Coronavirus (PCR) 04/23/21 04/23/21 04/23/21 04:52 12:06 17:41 WBC RDW Lymph % (Auto) Lymph # (Auto) Seg Neutrophils % Seg Neutrophils # D-Dimer ABG pH POC ABG pO2 ABG Oxyhemoglobin ABG Sodium ABG Glucose Carboxyhemoglobin Sodium 136 L Potassium Chloride 97.7 L Carbon Dioxide BUN 23 H Creatinine Glucose 101 H POC Glucose 202 H 169 H Hemoglobin A1c Ferritin AST 46 H Lactate Dehydrogenase C-Reactive Protein Total Protein Albumin 3.3 L Arterial Blood Glucose Coronavirus (PCR) 04/23/21 04/24/21 04/24/21 23:08 05:17 08:38 WBC RDW Lymph % (Auto) Lymph # (Auto) Seg Neutrophils % Seg Neutrophils # D-Dimer ABG pH POC ABG pO2 ABG Oxyhemoglobin ABG Sodium ABG Glucose Carboxyhemoglobin Sodium Potassium Chloride Carbon Dioxide BUN Creatinine Glucose POC Glucose 111 H 108 H 126 H Hemoglobin A1c Ferritin AST Lactate Dehydrogenase C-Reactive Protein Total Protein Albumin Arterial Blood Glucose Coronavirus (PCR) 04/24/21 04/24/21 04/24/21 11:54 17:57 21:23 WBC RDW Lymph % (Auto) Lymph # (Auto) Seg Neutrophils % Seg Neutrophils # D-Dimer ABG pH POC ABG pO2 ABG Oxyhemoglobin ABG Sodium ABG Glucose Carboxyhemoglobin Sodium Potassium Chloride Carbon Dioxide BUN Creatinine Glucose POC Glucose 147 H 177 H 138 H Hemoglobin A1c Ferritin AST Lactate Dehydrogenase C-Reactive Protein Total Protein Albumin Arterial Blood Glucose Coronavirus (PCR) 04/25/21 04/25/21 04/25/21 07:06 11:23 15:43 WBC RDW Lymph % (Auto) Lymph # (Auto) Seg Neutrophils % Seg Neutrophils # D-Dimer ABG pH POC ABG pO2 ABG Oxyhemoglobin ABG Sodium ABG Glucose Carboxyhemoglobin Sodium Potassium Chloride Carbon Dioxide BUN Creatinine Glucose POC Glucose 147 H 169 H 227 H Hemoglobin A1c Ferritin AST Lactate Dehydrogenase C-Reactive Protein Total Protein Albumin Arterial Blood Glucose Coronavirus (PCR) 04/25/21 04/26/21 04/26/21 21:22 02:45 05:15 WBC RDW Lymph % (Auto) Lymph # (Auto) Seg Neutrophils % Seg Neutrophils # D-Dimer ABG pH POC ABG pO2 70.7 L ABG Oxyhemoglobin 93.0 L ABG Sodium 132.7 L ABG Glucose 115 H Carboxyhemoglobin Sodium Potassium Chloride 95.8 L Carbon Dioxide 32 H BUN 20 H Creatinine Glucose 102 H POC Glucose 196 H Hemoglobin A1c Ferritin AST Lactate Dehydrogenase C-Reactive Protein Total Protein Albumin Arterial Blood Glucose 115 H Coronavirus (PCR) 04/26/21 04/26/21 04/26/21 11:49 16:09 21:07 WBC RDW Lymph % (Auto) Lymph # (Auto) Seg Neutrophils % Seg Neutrophils # D-Dimer ABG pH POC ABG pO2 ABG Oxyhemoglobin ABG Sodium ABG Glucose Carboxyhemoglobin Sodium Potassium Chloride Carbon Dioxide BUN Creatinine Glucose POC Glucose 114 H 188 H 136 H Hemoglobin A1c Ferritin AST Lactate Dehydrogenase C-Reactive Protein Total Protein Albumin Arterial Blood Glucose Coronavirus (PCR)
--- NOTE | 2021-04-27 10:15 | Progress Note ---
Assessment and Plan Assessment and plan: 50 YO Female with GERD, Obesity, HLD presents to ED for evaluation. Patient reports "I cannot breathe". Patient states that she has experienced subjective fever, shortness of breath, malaise, body aches, dry cough, and shortness of breath over the past 1 week with progressively worsening symptoms over the same timeframe. EMS was notified and upon arrival the patient was found to be in distress and subsequent transported to [facility] for further care and evaluation of the aforementioned symptoms. The patient was seen and evaluated in the emergency department. All lab and imaging studies reviewed. Patient found to have a pulse oximetry of 86% with exertion on room air which is consistent with acute hypoxemic respiratory failure. Patient with chest x-ray which revealed bilateral pneumonia. Patient admitted to medical floor and initiated him on pneumonia protocol as well as coronavirus protocol. Patient knowledges fever but denies chills, chest pain, palpitation, skin rash, recent ill contacts, or known exposure to COVID-19. Prior admission on 01/21/2017 reviewed. All medication listed at time of admission has been reconciled. Patient is unvaccinated for coronavirus infection. CXR: Bilateral Pneumonia 04/17: Patient seen and examined, still uncomfortable with Hypoxic respiratory tolu lure and on oxygen, will continue to steroids therapy, start patient on Remdesivir, ID consulted, Pulmonary consult placed. 04/18: Patient seen and examined, she is currently being changed to High flow NC due to worsening HYPOXIA, will transfer to IMCU, Pulmonary and ID following. Will also give a dose of Lasix today. Monitor Inflammatory markers. 04/19: Patient seen and examined still on high flow due to hypoxia. Appears a bit more comfortable today than yesterday. Cough has decreased in frequency. We will continue high dose Dexameathasone to complete 10 days. continue on Remdesivir 200 mg IV q day x 1 followed by 100 mg IV q day x 4 days -Obtain q48-72h inflammatory markers - ferritin, Ddimer, CRP, LDH Will also give lasix daily for the next 3 days and monitor renal function. Family updated. Continue prone positioning as tolerated 04/20: Patient has some desaturation episodes yesterday was placed on BiPAP. Discussed with ICU team for bed availability for patient to be transferred up. Continue prone position as tolerated. 04/21: Patient remains with profound hypoxia secondary to COVID pneumonia. -Continue steroids -Continue remedesir -S/P Actmera 04/22: Patient remains on steroids and remdesivir. ABG shows persistent hypoxia. We will continue current management additional trial of Lasix for the next few days to see if any improvement. Monitor inflammatory markers as needed. Prognosis is guarded remains on high flow 04/23; patient was treated with remdesivir and Actemra. Continue steroid. Patient's prognosis is guarded. 04/24; patient is on steroid. Patient is currently on BiPAP. Prognosis is guarded. Pulmonary is following. Patient was given Lasix and Ativan. 04/25; continue steroid. Patient was on 40 L of high flow oxygen with saturation was 88%. Pulmonary is following. Prognosis is guarded. Patient was given lasix and ativan. 04/26; patient is on BiPAP and Precedex. Prognosis is guarded. 04/27; patient is on BiPAP and Precedex. Patient will finish steroid today and will start on Solu-Medrol tomorrow. Prognosis is guarded. Blood pressure is be tter today. Hold Lasix. (1) Acute hypoxemic respiratory failure Current Visit: Yes Status: Acute Plan to address problem: Supplemental oxygen, chest x-ray, pulse oximetry, nebulizer therapy, proposition while in bed, noninvasive positive pressure ventilation as clinically indicated. If patient is unable to maintain pulse oximetry will consider high flow supplemental oxygen. (2) Pneumonia Current Visit: Yes Status: Acute Plan to address problem: Pneumonia protocol: Chest x-ray, CBC, CMP, IV antibiotic therapy, blood culture. (3) 2019 novel coronavirus infection Current Visit: Yes Status: Acute Plan to address problem: Coronavirus protocol: IV antibiotic therapy, IV steroid therapy, vitamin C therapy, vitamin D therapy, zinc therapy, prone positioning while in bed, nebulizer therapy, supplemental oxygen, pulse oximetry. Prophylactic anticoagulation (4) Obesity hypoventilation syndrome Current Visit: Yes Status: Acute Plan to address problem: Balanced diet, increase physical activity discharge, outpatient pulmonary follow-up for sleep study. (5) DVT prophylaxis Current Visit: Yes Status: Acute Plan to address problem: SCD to bilateral lower extremities while in bed, prophylactic anticoagulation The high probability of a clinically significant, sudden or life threatening deterioration of the [Pulmonary] system(s) required my full and direct attention, intervention and personal management. The aggregate critical care time was [35] minutes. This time is in addition to time spent performing report ed procedures but includes the following: [x] Data Review and interpretation [x] Patient assessment and monitoring of vital signs [x] Documentation [x] Medication orders and management History Interval history: Patient was seen and evaluated Patient was on BiPAP Hospitalist Physical - Physical exam Narrative exam: Patient is in respiratory distress. Patient is on 15 L of high flow oxygen and 15 L via nonrebreather mask The patient appeared well nourished and normally developed. Vital signs as documented. Head exam is unremarkable. No scleral icterus . Neck is without jugular venous distension, thyromegaly, or carotid bruits. Lungs decreased air entry. Cardiac exam reveals regular rate and Rhythm. Abdominal exam reveals normal bowel sounds, nontender, no organomegaly. Extremities are nonedematous and both femoral and pedal pulses are normal. MOBILE QA TESTER: Alert and oriented 3. No focal weakness. - Constitutional Vitals: Temp Pulse Resp BP Pulse Ox 98.9 F 50 L 31 H 100/54 90 04/27/21 02:56 04/27/21 09:30 04/27/21 09:30 04/27/21 09:30 04/27/21 09:30 General appearance: Absent: no acute distress, mild distress Results - Labs CBC & Chem 7: 04/23/21 04:52 04/26/21 05:15 Labs: Laboratory Last Values WBC 9.9 K/mm3 (4.5-11.0) 04/23/21 04:52 RBC 4.84 M/mm3 (3.65-5.03) 04/23/21 04:52 Hgb 14.2 gm/dl (10.1-14.3) 04/23/21 04:52 Hct 42.5 % (30.3-42.9) 04/23/21 04:52 MCV 88 fl (79-97) 04/23/21 04:52 MCH 29 pg (28-32) 04/23/21 04:52 MCHC 33 % (30-34) 04/23/21 04:52 RDW 15.7 % (13.2-15.2) H 04/23/21 04:52 Plt Count 405 K/mm3 (140-440) 04/23/21 04:52 Lymph % (Auto) 7.7 % (13.4-35.0) L 04/17/21 03:50 [place] % (Auto) 2.5 % (0.0-7.3) 04/17/21 03:50 Eos % (Auto) 0.0 % (0.0-4.3) 04/17/21 03:50 Baso % (Auto) 0.0 % (0.0-1.8) 04/17/21 03:50 Lymph # (Auto) 0.6 K/mm3 (1.2-5.4) L 04/17/21 03:50 [place] # (Auto) 0.2 K/mm3 (0.0-0.8) 04/17/21 03:50 Eos # (Auto) 0.0 K/mm3 (0.0-0.4) 04/17/21 03:50 Baso # (Auto) 0.0 K/mm3 (0.0-0.1) 04/17/21 03:50 Seg Neutrophils % 89.8 % (40.0-70.0) H 04/17/21 03:50 Seg Neutrophils # 6.7 K/mm3 (1.8-7.7) 04/17/21 03:50 D-Dimer 262.48 ng/mlDDU (0-234) H 04/17/21 08:26 ABG pH 7.417 (7.320-7.450) 04/26/21 02:45 POC ABG pCO2 45.5 mmHg (32.0-48.0) 04/26/21 02:45 POC ABG pO2 70.7 mmHg (83-108) L 04/26/21 02:45 POC ABG HCO3 28.7 04/26/21 02:45 ABG O2 Saturation 93.9 (0-100) 04/26/21 02:45 POC ABG Base Excess 3.4 04/26/21 02:45 ABG Hemoglobin 15.1 (12.0-17.5) 04/26/21 02:45 ABG Oxyhemoglobin 93.0 (94-98) L 04/26/21 02:45 ABG Methemoglobin 0.3 (0.0-1.5) 04/26/21 02:45 ABG Sodium 132.7 mmol/L (136.0-145.0) L 04/26/21 02:45 ABG Potassium 3.8 mmol/L (3.40-4.50) 04/26/21 02:45 ABG Chloride 98.0 mmol/L (98-107) 04/26/21 02:45 ABG Glucose 115 mg/dL (65-95) H 04/26/21 02:45 Carboxyhemoglobin 0.7 (0.5-1.5) 04/26/21 02:45 FiO2 % 100.0 04/26/21 02:45 Sodium 137 mmol/L (137-145) 04/26/21 05:15 Potassium 4.3 mmol/L (3.6-5.0) 04/26/21 05:15 Chloride 95.8 mmol/L (98-107) L 04/26/21 05:15 Carbon Dioxide 32 mmol/L (22-30) H 04/26/21 05:15 Anion Gap 14 mmol/L 04/26/21 05:15 BUN 20 mg/dL (7-17) H 04/26/21 05:15 Creatinine 0.6 mg/dL (0.6-1.2) 04/26/21 05:15 Estimated GFR > 60 ml/min 04/26/21 05:15 BUN/Creatinine Ratio 33 % 04/26/21 05:15 Glucose 102 mg/dL (65-100) H 04/26/21 05:15 POC Glucose 74 mg/dL (70-105) 04/27/21 08:48 Hemoglobin A1c 8.5 % (4-6) H 04/18/21 07:36 Calcium 9.3 mg/dL (8.4-10.2) 04/26/21 05:15 Phosphorus 3.50 mg/dL (2.5-4.5) 04/26/21 05:15 Magnesium 2.10 mg/dL (1.7-2.3) 04/26/21 05:15 Ferritin 392.0 ng/mL (10.0-200.0) H 04/17/21 08:26 Total Bilirubin 0.40 mg/dL (0.1-1.2) 04/23/21 04:52 AST 46 units/L (5-40) H 04/23/21 04:52 ALT 44 units/L (7-56) 04/23/21 04:52 Alkaline Phosphatase 58 units/L (35-129) 04/23/21 04:52 Lactate Dehydrogenase 338 units/L (91-180) H 04/17/21 08:26 C-Reactive Protein 17.20 mg/dL (0.00-1.30) H 04/17/21 08:26 Total Protein 6.5 g/dL (6.3-8.2) 04/23/21 04:52 Albumin 3.3 g/dL (3.9-5) L 04/23/21 04:52 Albumin/Globulin Ratio 1.0 % 04/23/21 04:52 Procalcitonin < 0.05 ng/mL (<0.15) 04/17/21 08:26 Arterial Blood Glucose 115 mg/dL (65-95) H 04/26/21 02:45 Arterial Blood Ionized Calcium 4.6 mg/dL (4.6-5.3) 04/26/21 02:45 Coronavirus (PCR) Positive (Negative) A 04/17/21 Unknown Amos/IV: Voiding Method External Female Catheter Active Medications - Current Medications Current Medications: Generic Name Dose Route Start Last Admin Trade Name Freq PRN Reason Stop Dose Admin Acetaminophen 650 mg 04/16/21 14:00 04/18/21 12:15 Acetaminophen 325 Mg Tab PO 650 mg Q4H PRN Administration Pain MILD(1-3)/Fever >100.5/[place] Albuterol 2.5 mg 04/16/21 13:39 04/21/21 20:39 Albuterol 2.5 Mg/3 Ml Nebu IH 2.5 mg Q4HRT PRN Administration Shortness Of Breath Ascorbic Acid 500 mg 04/24/21 10:00 04/26/21 09:27 Ascorbic Acid 500 Mg Tab PO 500 mg QDAY TUTU Administration Cholecalciferol 1,000 unit 04/17/21 10:00 04/26/21 09:27 Cholecalciferol (Vit D3) 1000 Unit (25 Mcg) Tab PO 1,000 unit QDAY TUTU Administration Dextrose 50 ml 04/18/21 07:30 Dextrose 50% In Water (25gm) 50 Ml Syringe IV Q30MIN PRN Hypoglycemia Protocol Famotidine 20 mg 04/16/21 22:00 04/26/21 21:28 Famotidine 20 Mg Tab PO Not Given BID TUTU Heparin Sodium (Porcine) 5,000 unit 04/16/21 22:00 04/26/21 21:31 Heparin 5,000 Unit/1 Ml Vial SUB-Q 5,000 unit Q12HR TUTU Administration Hydromorphone HCl 0.5 mg 04/16/21 14:00 04/24/21 23:30 Hydromorphone 1 Mg/1 Ml Inj IV 0.5 mg Q12H PRN Administration Pain , Severe (7-10) Dexmedetomidine HCl 400 mcg/ 104 mls @ 3.604 mls/hr 04/26/21 04:00 04/26/21 19:56 Sodium Chloride IV 0.2 mcg/kg/hr TITRATE TUTU 3.604 mls/hr Administration Protocol 0.2 MCG/KG/HR Insulin Glargine 5 units 04/24/21 22:00 04/26/21 21:27 Insulin Glargine 100 Units/Ml SUB-Q Not Given QHS [facility] Insulin Human Lispro 0 unit 04/18/21 08:00 04/26/21 21:07 Insulin Lispro 100 Unit/Ml SUB-Q Not Given ACHS [facility] Protocol Nystatin 500,000 unit 04/21/21 14:00 04/26/21 21:26 Nystatin 500,000 Unit/5 Ml Oral Liqd PO 04/28/21 10:01 Not Given QID [facility] Ondansetron HCl 4 mg 04/16/21 14:00 Ondansetron 4 Mg/2 Ml Inj IV Q8H PRN Nausea And Vomiting Oxycodone/Acetaminophen 1 tab 04/16/21 14:00 04/24/21 01:41 Oxycodone /Acetaminophen 5-325mg Tab PO 1 tab Q12H PRN Administration Pain, Moderate (4-6) Sodium Chloride 10 ml 04/16/21 22:00 04/26/21 21:31 Sodium Chloride 0.9% 10 Ml Flush Syringe IV 10 ml BID TUTU Administration Sodium Chloride 10 ml 04/16/21 13:39 Sodium Chloride 0.9% 10 Ml Flush Syringe IV PRN PRN LINE FLUSH Zinc Sulfate 220 mg 04/16/21 22:00 04/26/21 21:33 Zinc Sulfate 220 Mg Cap PO Not Given BID [facility] Nutrition/Malnutrition Assess - Dietary Evaluation Nutrition/Malnutrition Findings: Nutrition Notes Start: 04/23/21 07:41 Freq: Status: Active Protocol: Document 04/26/21 11:14 (Rec: 04/26/21 11:17 [id number]) Nutrition Notes Initial or Follow up Reassessment Current Diagnosis Respiratory Failure Other Pertinent Diagnosis pneu, COVID-19, hyperglycemia Current Diet Cardiac, Consistent CHO Labs/Tests reviewed Pertinent Medications Decadron Height 5 ft Weight 69.3 kg Usual Body Weight 74.843 kg [place] Body Weight (kg) 45.45 BMI 29.8 Weight change and time frame 7% wt loss in 2 weeks Weight Status Overweight Subjective/Other Information Pt was off bipap for brief period and drank a few sips of water. Pt back on bipap and unable to consume PO. PPN is recommended if unable to start TF and pt remains on bipap. Burn Absent Trauma Absent Current % PO Negligible Minimum of two criteria Yes Energy Intake (severe) < or equal to 50% Estimated Energy Requirement > or equal to 5 days Interpretation of Weight Loss (severe) >5% in 1 month #2 Nutrition Diagnosis Malnutrition Etiology acute illness As Evidenced by Signs and Symptoms <50% EER in >5 days, >5% wt loss in 1 month #1 Nutrition Diagnosis Inadequate oral intake Diagnosis Progress(for reassessment Continues documentation) Is patient on ventilator? No Is Patient Ambulatory and/or Out of Bed No REE-([facility]-confined to bed) 6819.923 Additional Notes Protein: (1.2-1.5g/kg) 83-104g Fluid: 1 ml/kcal Nutrition Intervention Change Diet Order: continue as able Goal #1 Meet needs as best as possible Anticipated Discharge Needs: Cardiac, consistent CHO Follow-Up By: 04/29/21 Additional Comments F/u: respiratory status, intakes, POC
[2021-04-27] MEDS: INSULIN LISPRO 100 UNIT/ML SUB-Q SCH ×4 (10:50→22:19)
[2021-04-27] MEDS: NYSTATIN 500,000 UNIT/5 ML ORAL LIQD PO SCH ×4 (10:50→21:56)
[2021-04-27] MEDS: ASCORBIC ACID 500 MG TAB PO SCH (10:51)
[2021-04-27] MEDS: ZINC SULFATE 220 MG CAP PO SCH ×2 (10:51→21:55)
[2021-04-27] MEDS: CHOLECALCIFEROL (VIT D3) 1000 UNIT (25 mcg) TAB PO SCH (10:51)
[2021-04-27] MEDS: FAMOTIDINE 20 MG TAB PO SCH ×2 (10:51→21:56)
[2021-04-27] MEDS: dexAMETHasone 4 MG/ML VIAL IV SCH (11:02)
[2021-04-27] MEDS: HEPARIN 5,000 UNIT/1 ML VIAL SUB-Q SCH ×2 (11:02→21:56)
[2021-04-27] MEDS: ONDANSETRON 4 MG/2 ML INJ IV PRN (14:33)
[2021-04-27] MEDS: ACETAMINOPHEN 325 MG TAB PO PRN (18:58)
[2021-04-27] MEDS: INSULIN GLARGINE 100 UNITS/ML SUB-Q SCH (22:19)
[2021-04-27] MEDS ORDERED: SODIUM CHLORIDE 0.9% 1000 ML 1,000 ML IV ONE (22:20)
[2021-04-28] MEDS: INSULIN LISPRO 100 UNIT/ML SUB-Q SCH ×4 (09:14→22:29)
[2021-04-28] MEDS: HEPARIN 5,000 UNIT/1 ML VIAL SUB-Q SCH ×2 (10:00→23:13)
[2021-04-28] MEDS: NYSTATIN 500,000 UNIT/5 ML ORAL LIQD PO SCH (10:00)
[2021-04-28] MEDS: ZINC SULFATE 220 MG CAP PO SCH ×2 (10:01→22:29)
[2021-04-28] MEDS: CHOLECALCIFEROL (VIT D3) 1000 UNIT (25 mcg) TAB PO SCH (10:01)
[2021-04-28] MEDS: ASCORBIC ACID 500 MG TAB PO SCH (10:02)
[2021-04-28] MEDS ORDERED: LACTATED RINGERS 1,000 ML IV ONE (12:00)
--- NOTE | 2021-04-28 13:31 | Progress Note ---
Assessment and Plan 50 y/o female with acute respiratory failure secondary to COVID19 pneumonia. 04/28/21: Continue Precedex. Picc team attempting to place line now. Stable on Bipap. Ordered steroids IV solumedrol to start today. Prognosis remains guarded, still at very high risk for intubation. 04/27/21: Hypotension improving/improved. Hold on any further lasix dosing. Continue precedex to help with anxeity. later today please attempt HFNC with NRB if needed. Attempt to feed if possible. Steroids end today, please order solumedrol 40q8 to start tomorrow (04/28/21). guarded prognosis. 04/26/21: Hypotension today, most likely from precedex use and diuresis that I did the last several days. Will bolus again today. Consider midodrine if BP does not respond. 04/25/21: Lasix again today. Keep PRN ativan for now. Hold on precedex for no w. Guarded prognosis. Labs ordered for tomorrow. 04/24/21: Lasix today. Will also start patient on low dose PRN ativan. If this does not help will then try precedex. Guarded prognosis. 04/23/21: Prone as tolerated. No lasix today. Continue decadron. Guarded prognosis. High risk for intubation and high mortality with intubation. 04/19/21: Prone as tolerated during the day and sleep prone at night. Continue IV remdesivir and steroids. Did get actemra. Guarded prognosis. 1. Daily net negative state 2. Prone if possible 3. IV remdesivir. 4. Should be a candidate for Actemra 5. IV steroids 6. Guarded Prognosis Subjective Date of service: 04/28/21 Interval history: Still on bipap. BP soft but stable. needs central access. Objective Vital Signs - 12hr 04/28/21 04/28/21 04/28/21 01:30 01:33 01:45 Temperature Pulse Rate 52 L 52 L 50 L Pulse Rate [ 54 L From Monitor] Respiratory 34 H 34 H 30 H Rate Blood Pressure 93/48 90/45 O2 Sat by Pulse 92 91 91 Oximetry 04/28/21 04/28/21 04/28/21 02:00 02:15 02:30 Temperature Pulse Rate 51 L 50 L 53 L Pulse Rate [ From Monitor] Respiratory 26 H 28 H 38 H Rate Blood Pressure 95/55 94/49 97/46 O2 Sat by Pulse 94 93 93 Oximetry 04/28/21 04/28/21 04/28/21 02:45 03:00 03:15 Temperature Pulse Rate 49 L 50 L 49 L Pulse Rate [ From Monitor] Respiratory 25 H 25 H 27 H Rate Blood Pressure 86/45 89/47 91/47 O2 Sat by Pulse 94 96 96 Oximetry 04/28/21 04/28/21 04/28/21 03:30 03:42 03:45 Temperature 98.8 F Pulse Rate 48 L 49 L Pulse Rate [ From Monitor] Respiratory 27 H 27 H Rate Blood Pressure 90/47 91/44 O2 Sat by Pulse 96 96 Oximetry 04/28/21 04/28/21 04/28/21 04:00 04:15 04:30 Temperature Pulse Rate 49 L 47 L 47 L Pulse Rate [ From Monitor] Respiratory 26 H 27 H 29 H Rate Blood Pressure 92/50 87/51 88/49 O2 Sat by Pulse 95 95 94 Oximetry 04/28/21 04/28/21 04/28/21 04:45 04:50 04:55 Temperature Pulse Rate 47 L 47 L 50 L Pulse Rate [ 54 L From Monitor] Respiratory 28 H 34 H 31 H Rate Blood Pressure 97/50 97/58 O2 Sat by Pulse 94 91 95 Oximetry 04/28/21 04/28/21 04/28/21 05:00 05:15 05:30 Temperature Pulse Rate 49 L 50 L 50 L Pulse Rate [ From Monitor] Respiratory 30 H 32 H 31 H Rate Blood Pressure 97/45 94/45 93/47 O2 Sat by Pulse 95 95 95 Oximetry 04/28/21 04/28/21 04/28/21 05:45 06:00 06:15 Temperature Pulse Rate 51 L 51 L 54 L Pulse Rate [ From Monitor] Respiratory 32 H 32 H 34 H Rate Blood Pressure 89/47 89/40 99/52 O2 Sat by Pulse 94 94 96 Oximetry 04/28/21 04/28/21 04/28/21 06:30 06:45 07:00 Temperature Pulse Rate 60 53 L 55 L Pulse Rate [ From Monitor] Respiratory 37 H 34 H 27 H Rate Blood Pressure 93/50 88/43 93/48 O2 Sat by Pulse 93 93 93 Oximetry 04/28/21 04/28/2121 07:15 07:30 07:45 Temperature Pulse Rate 60 55 L 55 L Pulse Rate [ From Monitor] Respiratory 37 H 35 H 30 H Rate Blood Pressure 94/48 87/44 94/49 O2 Sat by Pulse 94 92 96 Oximetry 04/28/21 04/28/21 04/28/21 07:46 08:00 08:15 Temperature Pulse Rate 55 L 52 L 69 Pulse Rate [ From Monitor] Respiratory 29 H 30 H 36 H Rate Blood Pressure 87/44 92/43 104/63 O2 Sat by Pulse 96 95 94 Oximetry 04/28/21 04/28/21 04/28/21 08:30 08:45 09:00 Temperature Pulse Rate 70 76 82 Pulse Rate [ From Monitor] Respiratory 42 H 45 H 49 H Rate Blood Pressure 99/48 92/40 94/47 O2 Sat by Pulse 94 93 93 Oximetry 04/28/21 04/28/21 04/28/21 09:15 09:30 09:45 Temperature Pulse Rate 84 84 89 Pulse Rate [ From Monitor] Respiratory 45 H 46 H 45 H Rate Blood Pressure 104/53 104/45 104/38 O2 Sat by Pulse 89 90 92 Oximetry 04/28/21 04/28/21 04/28/21 10:00 10:15 10:30 Temperature Pulse Rate 86 81 75 Pulse Rate [ From Monitor] Respiratory 49 H 43 H 42 H Rate Blood Pressure 96/39 100/52 99/48 O2 Sat by Pulse 91 92 Oximetry 04/28/21 04/28/21 04/28/21 10:45 11:00 11:15 Temperature Pulse Rate 76 68 74 Pulse Rate [ From Monitor] Respiratory 39 H 35 H 36 H Rate Blood Pressure 90/48 92/40 100/50 O2 Sat by Pulse 94 95 95 Oximetry Constitutional: no acute distress, other (on hiflo 100%) Eyes: non-icteric, other (sl injected) ENT: oropharynx moist, other (white plaques on tongue) Ascultation: Bilateral: diminished breath sounds Cardiovascular: regular rate and rhythm Gastrointestinal: normoactive bowel sounds, soft, non-tender, non-distended Extremities: no cyanosis Psychiatric: anxious CBC and BMP: 04/23/21 04:52 04/26/21 05:15 ABG, PT/INR, D-dimer: ABG ABG pH 7.417 (7.320-7.450) 04/26/21 02:45 POC ABG pCO2 45.5 mmHg (32.0-48.0) 04/26/21 02:45 POC ABG pO2 70.7 mmHg (83-108) L 04/26/21 02:45 POC ABG HCO3 28.7 04/26/21 02:45 ABG O2 Saturation 93.9 (0-100) 04/26/21 02:45 PT/INR, D-dimer D-Dimer 262.48 ng/mlDDU (0-234) H 04/17/21 08:26 Abnormal lab findings: Abnormal Labs 04/16/21 04/16/21 04/16/21 11:42 11:42 11:42 WBC RDW 16.1 H Lymph % (Auto) 7.8 L Lymph # (Auto) 0.8 L Seg Neutrophils % 87.7 H Seg Neutrophils # 8.5 H D-Dimer 338.70 H ABG pH POC ABG pO2 ABG Oxyhemoglobin ABG Sodium ABG Glucose Carboxyhemoglobin Sodium Potassium Chloride Carbon Dioxide BUN Creatinine Glucose 194 H POC Glucose Hemoglobin A1c Ferritin AST Lactate Dehydrogenase C-Reactive Protein Total Protein 8.4 H Albumin 3.8 L Arterial Blood Glucose Coronavirus (PCR) 04/16/21 04/16/21 04/17/21 11:42 11:42 03:50 WBC RDW 16.0 H Lymph % (Auto) 7.7 L Lymph # (Auto) 0.6 L Seg Neutrophils % 89.8 H Seg Neutrophils # D-Dimer ABG pH POC ABG pO2 ABG Oxyhemoglobin ABG Sodium ABG Glucose Carboxyhemoglobin Sodium Potassium Chloride Carbon Dioxide BUN Creatinine Glucose 195 H POC Glucose Hemoglobin A1c Ferritin 254.3 H AST Lactate Dehydrogenase 359 H C-Reactive Protein 15.20 H Total Protein Albumin Arterial Blood Glucose Coronavirus (PCR) 04/17/21 04/17/21 04/17/21 03:50 08:26 08:26 WBC RDW Lymph % (Auto) Lymph # (Auto) Seg Neutrophils % Seg Neutrophils # D-Dimer 262.48 H ABG pH POC ABG pO2 ABG Oxyhemoglobin ABG Sodium ABG Glucose Carboxyhemoglobin Sodium Potassium Chloride Carbon Dioxide BUN 20 H Creatinine 0.5 L Glucose 249 H 225 H POC Glucose Hemoglobin A1c Ferritin AST Lactate Dehydrogenase 338 H C-Reactive Protein 17.20 H Total Protein Albumin 3.2 L Arterial Blood Glucose Coronavirus (PCR) 04/17/21 04/17/21 04/17/21 08:26 15:04 Unknown WBC RDW Lymph % (Auto) Lymph # (Auto) Seg Neutrophils % Seg Neutrophils # D-Dimer ABG pH POC ABG pO2 ABG Oxyhemoglobin ABG Sodium ABG Glucose Carboxyhemoglobin Sodium Potassium Chloride Carbon Dioxide BUN 20 H Creatinine 0.5 L Glucose 246 H POC Glucose Hemoglobin A1c Ferritin 392.0 H AST Lactate Dehydrogenase C-Reactive Protein Total Protein 8.3 H Albumin 3.1 L Arterial Blood Glucose Coronavirus (PCR) Positive A 04/18/21 04/18/21 04/18/21 05:06 05:06 07:36 WBC 11.6 H RDW 16.1 H Lymph % (Auto) Lymph # (Auto) Seg Neutrophils % Seg Neutrophils # D-Dimer ABG pH POC ABG pO2 ABG Oxyhemoglobin ABG Sodium ABG Glucose Carboxyhemoglobin Sodium Potassium 5.2 H Chloride Carbon Dioxide BUN 22 H Creatinine 0.5 L Glucose 315 H POC Glucose Hemoglobin A1c 8.5 H Ferritin AST Lactate Dehydrogenase C-Reactive Protein Total Protein Albumin 3.3 L Arterial Blood Glucose Coronavirus (PCR) 04/18/21 04/18/21 04/18/21 11:59 16:43 23:24 WBC RDW Lymph % (Auto) Lymph # (Auto) Seg Neutrophils % Seg Neutrophils # D-Dimer ABG pH POC ABG pO2 ABG Oxyhemoglobin ABG Sodium ABG Glucose Carboxyhemoglobin Sodium Potassium Chloride Carbon Dioxide BUN Creatinine Glucose POC Glucose 284 H 273 H 290 H Hemoglobin A1c Ferritin AST Lactate Dehydrogenase C-Reactive Protein Total Protein Albumin Arterial Blood Glucose Coronavirus (PCR) 04/19/21 04/19/21 04/19/21 04:19 04:19 08:10 WBC RDW 15.7 H Lymph % (Auto) Lymph # (Auto) Seg Neutrophils % Seg Neutrophils # D-Dimer ABG pH POC ABG pO2 ABG Oxyhemoglobin ABG Sodium ABG Glucose Carboxyhemoglobin Sodium Potassium Chloride Carbon Dioxide BUN 27 H Creatinine 0.4 L Glucose 184 H POC Glucose 194 H Hemoglobin A1c Ferritin AST Lactate Dehydrogenase C-Reactive Protein Total Protein Albumin 3.1 L Arterial Blood Glucose Coronavirus (PCR) 04/19/21 04/19/21 04/19/21 11:38 16:25 22:04 WBC RDW Lymph % (Auto) Lymph # (Auto) Seg Neutrophils % Seg Neutrophils # D-Dimer ABG pH POC ABG pO2 ABG Oxyhemoglobin ABG Sodium ABG Glucose Carboxyhemoglobin Sodium Potassium Chloride Carbon Dioxide BUN Creatinine Glucose POC Glucose 224 H 297 H 251 H Hemoglobin A1c Ferritin AST Lactate Dehydrogenase C-Reactive Protein Total Protein Albumin Arterial Blood Glucose Coronavirus (PCR) 04/20/21 04/20/21 04/20/21 05:28 08:43 16:21 WBC RDW Lymph % (Auto) Lymph # (Auto) Seg Neutrophils % Seg Neutrophils # D-Dimer ABG pH POC ABG pO2 ABG Oxyhemoglobin ABG Sodium ABG Glucose Carboxyhemoglobin Sodium Potassium Chloride Carbon Dioxide BUN 27 H Creatinine Glucose 192 H POC Glucose 173 H 253 H Hemoglobin A1c Ferritin AST Lactate Dehydrogenase C-Reactive Protein Total Protein Albumin 3.0 L Arterial Blood Glucose Coronavirus (PCR) 04/21/21 04/21/21 04/21/21 07:58 12:05 16:08 WBC RDW Lymph % (Auto) Lymph # (Auto) Seg Neutrophils % Seg Neutrophils # D-Dimer ABG pH POC ABG pO2 ABG Oxyhemoglobin ABG Sodium ABG Glucose Carboxyhemoglobin Sodium Potassium Chloride Carbon Dioxide BUN Creatinine Glucose POC Glucose 140 H 252 H 214 H Hemoglobin A1c Ferritin AST Lactate Dehydrogenase C-Reactive Protein Total Protein Albumin Arterial Blood Glucose Coronavirus (PCR) 04/21/21 04/22/21 04/22/21 21:42 08:37 12:01 WBC RDW Lymph % (Auto) Lymph # (Auto) Seg Neutrophils % Seg Neutrophils # D-Dimer ABG pH 7.457 H POC ABG pO2 49.4 L ABG Oxyhemoglobin 85.6 L ABG Sodium ABG Glucose 121 H Carboxyhemoglobin 0.3 L Sodium Potassium Chloride Carbon Dioxide BUN Creatinine Glucose POC Glucose 162 H 227 H Hemoglobin A1c Ferritin AST Lactate Dehydrogenase C-Reactive Protein Total Protein Albumin Arterial Blood Glucose 121 H Coronavirus (PCR) 04/22/21 04/22/21 04/23/21 16:26 22:23 04:52 WBC RDW 15.7 H Lymph % (Auto) Lymph # (Auto) Seg Neutrophils % Seg Neutrophils # D-Dimer ABG pH POC ABG pO2 ABG Oxyhemoglobin ABG Sodium ABG Glucose Carboxyhemoglobin Sodium Potassium Chloride Carbon Dioxide BUN Creatinine Glucose POC Glucose 200 H 136 H Hemoglobin A1c Ferritin AST Lactate Dehydrogenase C-Reactive Protein Total Protein Albumin Arterial Blood Glucose Coronavirus (PCR) 04/23/21 04/23/21 04/23/21 04:52 12:06 17:41 WBC RDW Lymph % (Auto) Lymph # (Auto) Seg Neutrophils % Seg Neutrophils # D-Dimer ABG pH POC ABG pO2 ABG Oxyhemoglobin ABG Sodium ABG Glucose Carboxyhemoglobin Sodium 136 L Potassium Chloride 97.7 L Carbon Dioxide BUN 23 H Creatinine Glucose 101 H POC Glucose 202 H 169 H Hemoglobin A1c Ferritin AST 46 H Lactate Dehydrogenase C-Reactive Protein Total Protein Albumin 3.3 L Arterial Blood Glucose Coronavirus (PCR) 04/23/21 04/24/21 04/24/21 23:08 05:17 08:38 WBC RDW Lymph % (Auto) Lymph # (Auto) Seg Neutrophils % Seg Neutrophils # D-Dimer ABG pH POC ABG pO2 ABG Oxyhemoglobin ABG Sodium ABG Glucose Carboxyhemoglobin Sodium Potassium Chloride Carbon Dioxide BUN Creatinine Glucose POC Glucose 111 H 108 H 126 H Hemoglobin A1c Ferritin AST Lactate Dehydrogenase C-Reactive Protein Total Protein Albumin Arterial Blood Glucose Coronavirus (PCR) 04/24/21 04/24/21 04/24/21 11:54 17:57 21:23 WBC RDW Lymph % (Auto) Lymph # (Auto) Seg Neutrophils % Seg Neutrophils # D-Dimer ABG pH POC ABG pO2 ABG Oxyhemoglobin ABG Sodium ABG Glucose Carboxyhemoglobin Sodium Potassium Chloride Carbon Dioxide BUN Creatinine Glucose POC Glucose 147 H 177 H 138 H Hemoglobin A1c Ferritin AST Lactate Dehydrogenase C-Reactive Protein Total Protein Albumin Arterial Blood Glucose Coronavirus (PCR) 04/25/21 04/25/21 04/25/21 07:06 11:23 15:43 WBC RDW Lymph % (Auto) Lymph # (Auto) Seg Neutrophils % Seg Neutrophils # D-Dimer ABG pH POC ABG pO2 ABG Oxyhemoglobin ABG Sodium ABG Glucose Carboxyhemoglobin Sodium Potassium Chloride Carbon Dioxide BUN Creatinine Glucose POC Glucose 147 H 169 H 227 H Hemoglobin A1c Ferritin AST Lactate Dehydrogenase C-Reactive Protein Total Protein Albumin Arterial Blood Glucose Coronavirus (PCR) 04/25/21 04/26/21 04/26/21 21:22 02:45 05:15 WBC RDW Lymph % (Auto) Lymph # (Auto) Seg Neutrophils % Seg Neutrophils # D-Dimer ABG pH POC ABG pO2 70.7 L ABG Oxyhemoglobin 93.0 L ABG Sodium 132.7 L ABG Glucose 115 H Carboxyhemoglobin Sodium Potassium Chloride 95.8 L Carbon Dioxide 32 H BUN 20 H Creatinine Glucose 102 H POC Glucose 196 H Hemoglobin A1c Ferritin AST Lactate Dehydrogenase C-Reactive Protein Total Protein Albumin Arterial Blood Glucose 115 H Coronavirus (PCR) 04/26/21 04/26/21 04/26/21 11:49 16:09 21:07 WBC RDW Lymph % (Auto) Lymph # (Auto) Seg Neutrophils % Seg Neutrophils # D-Dimer ABG pH POC ABG pO2 ABG Oxyhemoglobin ABG Sodium ABG Glucose Carboxyhemoglobin Sodium Potassium Chloride Carbon Dioxide BUN Creatinine Glucose POC Glucose 114 H 188 H 136 H Hemoglobin A1c Ferritin AST Lactate Dehydrogenase C-Reactive Protein Total Protein Albumin Arterial Blood Glucose Coronavirus (PCR) 04/27/21 04/27/21 04/28/21 17:34 22:12 08:26 WBC RDW Lymph % (Auto) Lymph # (Auto) Seg Neutrophils % Seg Neutrophils # D-Dimer ABG pH POC ABG pO2 ABG Oxyhemoglobin ABG Sodium ABG Glucose Carboxyhemoglobin Sodium Potassium Chloride Carbon Dioxide BUN Creatinine Glucose POC Glucose 128 H 159 H 69 L Hemoglobin A1c Ferritin AST Lactate Dehydrogenase C-Reactive Protein Total Protein Albumin Arterial Blood Glucose Coronavirus (PCR) 04/28/21 12:22 WBC RDW Lymph % (Auto) Lymph # (Auto) Seg Neutrophils % Seg Neutrophils # D-Dimer ABG pH POC ABG pO2 ABG Oxyhemoglobin ABG Sodium ABG Glucose Carboxyhemoglobin Sodium Potassium Chloride Carbon Dioxide BUN Creatinine Glucose POC Glucose 141 H Hemoglobin A1c Ferritin AST Lactate Dehydrogenase C-Reactive Protein Total Protein Albumin Arterial Blood Glucose Coronavirus (PCR)
--- NOTE | 2021-04-28 14:03 | Progress Note ---
Subjective Date of service: 04/28/21 Interval history: Assessment and plan: 50 YO Female with GERD, Obesity, HLD presents to ED for evaluation. Patient reports "I cannot breathe". Patient states that she has experienced subjective fever, shortness of breath, malaise, body aches, dry cough, and shortness of breath over the past 1 week with progressively worsening symptoms over the same timeframe. EMS was notified and upon arrival the patient was found to be in distress and subsequent transported to [facility] for further care and evaluation of the aforementioned symptoms. The patient was seen and evaluated in the emergency department. All lab and imaging studies reviewed. Patient found to have a pulse oximetry of 86% with exertion on room air which is consistent with acute hypoxemic respiratory failure. Patient with chest x-ray which revealed bilateral pneumonia. Patient admitted to medical floor and initiated him on pneumonia protocol as well as coronavirus protocol. Patient knowledges fever but denies chills, chest pain, palpitation, skin rash, recent ill contacts, or known exposure to COVID-19. Prior admission on 01/21/2017 reviewed. All medication listed at time of admission has been reconciled. Patient is unvaccinated for coronavirus infection. CXR: Bilateral Pneumonia 04/17: Patient seen and examined, still uncomfortable with Hypoxic respiratory failure and on oxygen, will continue to steroids therapy, start patient on Remdesivir, ID consulted, Pulmonary consult placed. 04/18: Patient seen and examined, she is currently being changed to High flow NC due to worsening HYPOXIA, will transfer to IMCU, Pulmonary and ID following. Will also give a dose of Lasix today. Monitor Inflammatory markers. 04/19: Patient seen and examined still on high flow due to hypoxia. Appears a bit more comfortable today than yesterday. Cough has decreased in frequency. We wi ll continue high dose Dexameathasone to complete 10 days. continue on Remdesivir 200 mg IV q day x 1 followed by 100 mg IV q day x 4 days -Obtain q48-72h inflammatory markers - ferritin, Ddimer, CRP, LDH Will also give lasix daily for the next 3 days and monitor renal function. Family updated. Continue prone positioning as tolerated 04/20: Patient has some desaturation episodes yesterday was placed on BiPAP. Discussed with ICU team for bed availability for patient to be transferred up. Continue prone position as tolerated. 04/21: Patient remains with profound hypoxia secondary to COVID pneumonia. -Continue steroids -Continue remedesir -S/P Actmera 04/22: Patient remains on steroids and remdesivir. ABG shows persistent hypoxia. We will continue current management additional trial of Lasix for the next few days to see if any improvement. Monitor inflammatory markers as needed. Prognosis is guarded remains on high flow 04/23; patient was treated with remdesivir and Actemra. Continue steroid. Patient's prognosis is guarded. 04/24; patient is on steroid. Patient is currently on BiPAP. Prognosis is guarded. Pulmonary is following. Patient was given Lasix and Ativan. 04/25; continue steroid. Patient was on 40 L of high flow oxygen with saturation was 88%. Pulmonary is following. Prognosis is guarded. Patient was given lasix and ativan. 04/26; patient is on BiPAP and Precedex. Prognosis is guarded. 04/27; patient is on BiPAP and Precedex. Patient will finish steroid today and will start on Solu-Medrol tomorrow. Prognosis is guarded. Blood pressure is better today. Hold Lasix. 04/28 patient is on 100 Fio2 via BIPAP. moderately dyspneic, pulmonary note reviewed, lab results reviewed (1) Acute hypoxemic respiratory failure Current Visit: Yes Status: Acute Plan to address problem: pulmonary note reviewed and appreciated cont. BIPAP at 100 % Fio2 Started on IV solumedrol cont. precedex (2) 2019 novel coronavirus infection Current Visit: Yes Status: Acute Plan to address problem: completed remdesivir therapy cont. DVT prophylaxis (4) Obesity hypoventilation syndrome Current Visit: Yes Status: Acute Plan to address problem: Balanced diet, increase physical activity discharge, outpatient pulmonary follow-up for sleep study. Hypotension: s/p IV NS bolus improved (5) DVT prophylaxis Current Visit: Yes Status: Acute Plan to address problem: SCD to bilateral lower extremities while in bed, prophylactic anticoagulation Objective - Constitutional Vitals: Vital Signs - 12hr 04/28/21 04/28/21 04/28/21 02:15 02:30 02:45 Temperature Pulse Rate 50 L 53 L 49 L Pulse Rate [ From Monitor] Respiratory 28 H 38 H 25 H Rate Blood Pressure 94/49 97/46 86/45 O2 Sat by Pulse 93 93 94 Oximetry 0804/28/21 04/28/21 03:00 03:15 03:30 Temperature Pulse Rate 50 L 49 L 48 L Pulse Rate [ From Monitor] Respiratory 25 H 27 H 27 H Rate Blood Pressure 89/47 91/47 90/47 O2 Sat by Pulse 96 96 96 Oximetry 04/28/21 04/28/21 04/28/21 03:42 03:45 04:00 Temperature 98.8 F Pulse Rate 49 L 49 L Pulse Rate [ From Monitor] Respiratory 27 H 26 H Rate Blood Pressure 91/44 92/50 O2 Sat by Pulse 96 95 Oximetry 04/28/21 04/28/21 04/28/21 04:15 04:30 04:45 Temperature Pulse Rate 47 L 47 L 47 L Pulse Rate [ From Monitor] Respiratory 27 H 29 H 28 H Rate Blood Pressure 87/51 88/49 97/50 O2 Sat by Pulse 95 94 94 Oximetry 04/28/21 04/28/21 04/28/21 04:50 04:55 05:00 Temperature Pulse Rate 47 L 50 L 49 L Pulse Rate [ 54 L From Monitor] Respiratory 34 H 31 H 30 H Rate Blood Pressure 97/58 97/45 O2 Sat by Pulse 91 95 95 Oximetry 04/28/21 04/28/21 04/28/21 05:15 05:30 05:45 Temperature Pulse Rate 50 L 50 L 51 L Pulse Rate [ From Monitor] Respiratory 32 H 31 H 32 H Rate Blood Pressure 94/45 93/47 89/47 O2 Sat by Pulse 95 95 94 Oximetry 04/28/21 04/28/21 04/28/21 06:00 06:15 06:30 Temperature Pulse Rate 51 L 54 L 60 Pulse Rate [ From Monitor] Respiratory 32 H 34 H 37 H Rate Blood Pressure 89/40 99/52 93/50 O2 Sat by Pulse 94 96 93 Oximetry 04/28/21 04/28/21 04/28/21 06:45 07:00 07:15 Temperature Pulse Rate 53 L 55 L 60 Pulse Rate [ From Monitor] Respiratory 34 H 27 H 37 H Rate Blood Pressure 88/43 93/48 94/48 O2 Sat by Pulse 93 93 94 Oximetry 04/28/21 04/28/21 04/28/21 07:30 07:45 07:46 Temperature Pulse Rate 55 L 55 L 55 L Pulse Rate [ From Monitor] Respiratory 35 H 30 H 29 H Rate Blood Pressure 87/44 94/49 87/44 O2 Sat by Pulse 92 96 96 Oximetry 04/28/21 04/28/21 04/28/21 08:00 08:15 08:30 Temperature Pulse Rate 52 L 69 70 Pulse Rate [ From Monitor] Respiratory 30 H 36 H 42 H Rate Blood Pressure 92/43 104/63 99/48 O2 Sat by Pulse 95 94 94 Oximetry 04/28/21 04/28/21 04/28/21 08:45 09:00 09:15 Temperature Pulse Rate 76 82 84 Pulse Rate [ From Monitor] Respiratory 45 H 49 H 45 H Rate Blood Pressure 92/40 94/47 104/53 O2 Sat by Pulse 93 93 89 Oximetry 04/28/21 04/28/21 04/28/21 09:30 09:45 10:00 Temperature Pulse Rate 84 89 86 Pulse Rate [ From Monitor] Respiratory 46 H 45 H 49 H Rate Blood Pressure 104/45 104/38 96/39 O2 Sat by Pulse 90 92 91 Oximetry 04/28/21 04/28/21 04/28/21 10:15 10:30 10:45 Temperature Pulse Rate 81 75 76 Pulse Rate [ From Monitor] Respiratory 43 H 42 H 39 H Rate Blood Pressure 100/52 99/48 90/48 O2 Sat by Pulse 92 94 Oximetry 04/28/21 04/28/21 11:00 11:15 Temperature Pulse Rate 68 74 Pulse Rate [ From Monitor] Respiratory 35 H 36 H Rate Blood Pressure 92/40 100/50 O2 Sat by Pulse 95 95 Oximetry General appearance: Present: mild distress - EENT Eyes: PERRL, EOM intact ENT: hearing intact - Neck Neck: supple, normal ROM - Respiratory Respiratory effort: accessory muscle use Respiratory: bilateral: diminished, rales - Cardiovascular Rhythm: regular Heart Sounds: Present: S1 & S2 Extremities: No edema - Gastrointestinal General gastrointestinal: Present: soft, non-tender - Integumentary Integumentary: clear - Musculoskeletal Musculoskeletal: generalized weakness - Neurologic Neurologic: moves all extremities - Labs CBC & Chem 7: 04/23/21 04:52 04/26/21 05:15 Labs: Abnormal lab results 04/27/21 04/27/21 04/28/21 Range/Units 17:34 22:12 08:26 POC Glucose 128 H 159 H 69 L (70-105) mg/dL 04/28/21 Range/Units 12:22 POC Glucose 141 H (70-105) mg/dL
[2021-04-28] MEDS: FAMOTIDINE 20 MG TAB PO SCH ×2 (14:33→22:29)
[2021-04-28] MEDS: methylPREDNISolone Sod Succinate 40 MG/1 ML INJ IV SCH ×2 (16:01→23:13)
[2021-04-28] MEDS: HYPROMELLOSE 0.5% OPHTH SOLN 15 ML OU PRN (19:07)
[2021-04-28] MEDS: HYDROmorphone 1 MG/1 ML INJ IV PRN (22:22)
[2021-04-28] MEDS: INSULIN GLARGINE 100 UNITS/ML SUB-Q SCH (22:29)
[2021-04-29] MEDS ORDERED: SODIUM CHLORIDE 0.9% 1000 ML 1,000 ML IV ONE (02:01)
[2021-04-29] MEDS: methylPREDNISolone Sod Succinate 40 MG/1 ML INJ IV SCH ×3 (06:12→22:31)
[2021-04-29 07:16] LABS: Hematocrit 38.5 % (30.3-42.9); Hemoglobin 13.3 gm/dl (10.1-14.3); Mean Corpuscular HGB Conc 35 % (30-34); Mean Corpuscular Volume 88 fl (79-97); Platelet Count 265 K/mm3 (140-440); Red Cell Distribution Width 15.9 % (13.2-15.2)
[2021-04-29 07:35] LABS: Blood Urea Nitrogen 11 mg/dL (7-17); Calcium 8.7 mg/dL (8.4-10.2); Hemolysis Index 3
[2021-04-29 07:56] LABS: BUN/Creatinine Ratio 55
[2021-04-29] MEDS: CHOLECALCIFEROL (VIT D3) 1000 UNIT (25 mcg) TAB PO SCH (09:09)
[2021-04-29] MEDS: ZINC SULFATE 220 MG CAP PO SCH ×2 (09:09→22:31)
[2021-04-29] MEDS: FAMOTIDINE 20 MG TAB PO SCH ×2 (09:09→22:31)
[2021-04-29] MEDS: ASCORBIC ACID 500 MG TAB PO SCH (09:10)
[2021-04-29] MEDS: HEPARIN 5,000 UNIT/1 ML VIAL SUB-Q SCH ×2 (09:10→22:30)
[2021-04-29] MEDS: INSULIN LISPRO 100 UNIT/ML SUB-Q SCH ×4 (09:10→22:31)
--- NOTE | 2021-04-29 10:25 | Progress Note ---
<ATTILA ORTIZ Seun - Last Filed: 04/29/21 17:09> Assessment and Plan Assessment and plan: NEURO- acute pain PRN tylenol dex for comfort PRN pain meds gambian speaking right eye- viral conjunctivitis vs subconjunctival hemorrhage continue to monitor family updated on plan of care CV- ST SR-ST off pressors Resp- acute hypoxic resp failure due to covid19 bipap see RT notes remains high risk for intubation ABG noted albuterol PRN xray chest ordered for AM GI- nap cardiac diet when rested of bipap poor intake nutrition consult aspiration precautions consider TF if not taking po to meet needs bowel reg pepcid - volume overload net pos 1.5L over 24 hours remains positive today given lasix 20 mg IV this afternoon vit D replacement AM labs ordered Heme- coagulopahty of covid VTE SQH trend WBC hgb goal over 7 no bleeding on exam [id number] pna zinc/vitC methylpred ID following completed actemra and remdesovir afebrile WBC 10 trend temp and WBC curve follow culture data Endo- hyperglycemia; obesity glargine HS SSI AC/HS 50 YO Female with GERD, Obesity, HLD presents to ED for evaluation. Patient reports "I cannot breathe". Patient states that she has experienced subjective fever, shortness of breath, malaise, body aches, dry cough, and shortness of breath over the past 1 week with progressively worsening symptoms over the same timeframe. EMS was notified and upon arrival the patient was found to be in distress and subsequent transported to [facility] for further care and evaluation of the aforementioned symptoms. The patient was seen and evaluated in the emergency department. All lab and imaging studies reviewed. Patient found to have a pulse oximetry of 86% with exertion on room air which is consistent with acute hypoxemic respiratory failure. Patient with chest x-ray which revealed bilateral pneumonia. Patient admitted to medical floor and initiated him on pneumonia protocol as well as coronavirus protocol. Patient knowledges fever but denies chills, chest pain, palpitation, skin rash, recent ill contacts, or known exposure to COVID-19. Prior admission on 01/21/2017 reviewed. All medication listed at time of admission has been reconciled. Patient is unvaccinated for coronavirus infection. CXR: Bilateral Pneumonia 04/17: Patient seen and examined, still uncomfortable with Hypoxic respiratory failure and on oxygen, will continue to steroids therapy, start patient on Remdesivir, ID consulted, Pulmonary consult placed. 04/18: Patient seen and examined, she is currently being changed to High flow NC due to worsening HYPOXIA, will transfer to IMCU, Pulmonary and ID following. Will also give a dose of Lasix today. Monitor Inflammatory markers. 04/19: Patient seen and examined still on high flow due to hypoxia. Appears a bit more comfortable today than yesterday. Cough has decreased in frequency. We will continue high dose Dexameathasone to complete 10 days. continue on Remdesivir 200 mg IV q day x 1 followed by 100 mg IV q day x 4 days -Obtain q48-72h inflammatory markers - ferritin, Ddimer, CRP, LDH Will also give lasix daily for the next 3 days and monitor renal function. Family updated. Continue prone positioning as tolerated 04/20: Patient has some desaturation episodes yesterday was placed on BiPAP. Discussed with ICU team for bed availability for patient to be transferred up. Continue prone position as tolerated. 04/21: Patient remains with profound hypoxia secondary to COVID pneumonia. -Continue steroids -Continue remedesir -S/P Actmera 04/22: Patient remains on steroids and remdesivir. ABG shows persistent hypoxia. We will continue current management additional trial of Lasix for the next few days to see if any improvement. Monitor inflammatory markers as needed. Prognosis is guarded remains on high flow 04/23; patient was treated with remdesivir and Actemra. Continue steroid. Patient's prognosis is guarded. 04/24; patient is on steroid. Patient is currently on BiPAP. Prognosis is guarded. Pulmonary is following. Patient was given Lasix and Ativan. 04/25; continue steroid. Patient was on 40 L of high flow oxygen with saturation was 88%. Pulmonary is following. Prognosis is guarded. Patient was given lasix and ativan. 04/26; patient is on BiPAP and Precedex. Prognosis is guarded. 04/27; patient is on BiPAP and Precedex. Patient will finish steroid today and will start on Solu-Medrol tomorrow. Prognosis is guarded. Blood pressure is better today. Hold Lasix. 04/28 patient is on 100 Fio2 via BIPAP. moderately dyspneic, pulmonary note reviewed, lab results reviewed 04/29 no acute events The high probability of a clinically significant, sudden or life threatening deterioration of the [Pulmonary] system(s) required my full and direct attention, intervention and personal management. The aggregate critical care time was [60] minutes. This time is in addition to time spent performing reported procedures but includes the following: [x] Data Review and interpretation [x] Patient assessment and monitoring of vital signs [x] Documentation [x] Medication orders and management Disposition Plan: ICU/dispo tbd Total Time Spent with Patient (Minutes): 60 History Interval history: no acute events Hospitalist Physical - Constitutional Vitals: Temp Pulse Resp BP Pulse Ox 98.0 F 98 H 37 H 109/48 86 04/29/21 07:00 04/29/21 09:00 04/29/21 09:00 04/29/21 09:00 04/29/21 08:45 General appearance: Present: mild distress - EENT Eyes: Present: PERRL ENT: clear oral mucosa - Neck Neck: Present: supple - Respiratory Respiratory effort: normal - Cardiovascular Rhythm: regular Heart Sounds: Present: S1 & S2 - Extremities Extremities: no ischemia Peripheral Pulses: within normal limits - Abdominal General gastrointestinal: soft - Integumentary Integumentary: Present: clear, warm - Psychiatric Psychiatric: appropriate mood/affect - Allied Health Allied health notes reviewed: nursing, RT, social work, case management Results - Labs CBC & Chem 7: 04/29/21 06:05 04/29/21 06:05 Labs: Laboratory Last Values WBC 10.3 K/mm3 (4.5-11.0) 04/29/21 06:05 RBC 4.40 M/mm3 (3.65-5.03) 04/29/21 06:05 Hgb 13.3 gm/dl (10.1-14.3) 04/29/21 06:05 Hct 38.5 % (30.3-42.9) 04/29/21 06:05 MCV 88 fl (79-97) 04/29/21 06:05 MCH 30 pg (28-32) 04/29/21 06:05 MCHC 35 % (30-34) H 04/29/21 06:05 RDW 15.9 % (13.2-15.2) H 04/29/21 06:05 Plt Count 265 K/mm3 (140-440) 04/29/21 06:05 Lymph % (Auto) 7.7 % (13.4-35.0) L 04/17/21 03:50 [place] % (Auto) 2.5 % (0.0-7.3) 04/17/21 03:50 Eos % (Auto) 0.0 % (0.0-4.3) 04/17/21 03:50 Baso % (Auto) 0.0 % (0.0-1.8) 04/17/21 03:50 Lymph # (Auto) 0.6 K/mm3 (1.2-5.4) L 04/17/21 03:50 [place] # (Auto) 0.2 K/mm3 (0.0-0.8) 04/17/21 03:50 Eos # (Auto) 0.0 K/mm3 (0.0-0.4) 04/17/21 03:50 Baso # (Auto) 0.0 K/mm3 (0.0-0.1) 04/17/21 03:50 Seg Neutrophils % 89.8 % (40.0-70.0) H 04/17/21 03:50 Seg Neutrophils # 6.7 K/mm3 (1.8-7.7) 04/17/21 03:50 D-Dimer 262.48 ng/mlDDU (0-234) H 04/17/21 08:26 ABG pH 7.417 (7.320-7.450) 04/26/21 02:45 POC ABG pCO2 45.5 mmHg (32.0-48.0) 04/26/21 02:45 POC ABG pO2 70.7 mmHg (83-108) L 04/26/21 02:45 POC ABG HCO3 28.7 04/26/21 02:45 ABG O2 Saturation 93.9 (0-100) 04/26/21 02:45 POC ABG Base Excess 3.4 04/26/21 02:45 ABG Hemoglobin 15.1 (12.0-17.5) 04/26/21 02:45 ABG Oxyhemoglobin 93.0 (94-98) L 04/26/21 02:45 ABG Methemoglobin 0.3 (0.0-1.5) 04/26/21 02:45 ABG Sodium 132.7 mmol/L (136.0-145.0) L 04/26/21 02:45 ABG Potassium 3.8 mmol/L (3.40-4.50) 04/26/21 02:45 ABG Chloride 98.0 mmol/L (98-107) 04/26/21 02:45 ABG Glucose 115 mg/dL (65-95) H 04/26/21 02:45 Carboxyhemoglobin 0.7 (0.5-1.5) 04/26/21 02:45 FiO2 % 100.0 04/26/21 02:45 Sodium 132 mmol/L (137-145) L 04/29/21 06:05 Potassium 4.8 mmol/L (3.6-5.0) 04/29/21 06:05 Chloride 94.4 mmol/L (98-107) L 04/29/21 06:05 Carbon Dioxide 27 mmol/L (22-30) 04/29/21 06:05 Anion Gap 15 mmol/L 04/29/21 06:05 BUN 11 mg/dL (7-17) 04/29/21 06:05 Creatinine 0.2 mg/dL (0.6-1.2) L D 04/29/21 06:05 Estimated GFR > 60 ml/min 04/29/21 06:05 BUN/Creatinine Ratio 55 % 04/29/21 06:05 Glucose 140 mg/dL (65-100) H 04/29/21 06:05 POC Glucose 141 mg/dL (70-105) H 04/29/21 07:24 Hemoglobin A1c 8.5 % (4-6) H 04/18/21 07:36 Calcium 8.7 mg/dL (8.4-10.2) 04/29/21 06:05 Phosphorus 4.30 mg/dL (2.5-4.5) 04/29/21 06:05 Magnesium 1.70 mg/dL (1.7-2.3) 04/29/21 06:05 Ferritin 392.0 ng/mL (10.0-200.0) H 04/17/21 08:26 Total Bilirubin 0.40 mg/dL (0.1-1.2) 04/23/21 04:52 AST 46 units/L (5-40) H 04/23/21 04:52 ALT 44 units/L (7-56) 04/23/21 04:52 Alkaline Phosphatase 58 units/L (35-129) 04/23/21 04:52 Lactate Dehydrogenase 338 units/L (91-180) H 04/17/21 08:26 C-Reactive Protein 17.20 mg/dL (0.00-1.30) H 04/17/21 08:26 Total Protein 6.5 g/dL (6.3-8.2) 04/23/21 04:52 Albumin 3.3 g/dL (3.9-5) L 04/23/21 04:52 Albumin/Globulin Ratio 1.0 % 04/23/21 04:52 Procalcitonin < 0.05 ng/mL (<0.15) 04/17/21 08:26 Arterial Blood Glucose 115 mg/dL (65-95) H 04/26/21 02:45 Arterial Blood Ionized Calcium 4.6 mg/dL (4.6-5.3) 04/26/21 02:45 Coronavirus (PCR) Positive (Negative) A 04/17/21 Unknown Amos/IV: Voiding Method External Female Catheter Active Medications - Current Medications Current Medications: Generic Name Dose Route Start Last Admin Trade Name Freq PRN Reason Stop Dose Admin Acetaminophen 650 mg 04/16/21 14:00 04/27/21 18:58 Acetaminophen 325 Mg Tab PO 650 mg Q4H PRN Administration Pain MILD(1-3)/Fever >100.5/[place] Albuterol 2.5 mg 04/16/21 13:39 04/21/21 20:39 Albuterol 2.5 Mg/3 Ml Nebu IH 2.5 mg Q4HRT PRN Administration Shortness Of Breath Artificial Tears 2 drops 04/28/21 18:15 04/28/21 19:07 Hypromellose 0.5% Ophth Soln 15 Ml OU 2 drops Q4H PRN Administration Dry Eye(s) Ascorbic Acid 500 mg 04/24/21 10:00 04/29/21 09:10 Ascorbic Acid 500 Mg Tab PO 500 mg QDAY TUTU Administration Cholecalciferol 1,000 unit 04/17/21 10:00 04/29/21 09:09 Cholecalciferol (Vit D3) 1000 Unit (25 Mcg) Tab PO 1,000 unit QDAY TUTU Administration Dextrose 50 ml 04/18/21 07:30 04/28/21 09:59 Dextrose 50% In Water (25gm) 50 Ml Syringe IV 50 ml Q30MIN PRN Administration Hypoglycemia Protocol Famotidine 20 mg 04/16/21 22:00 04/29/21 09:09 Famotidine 20 Mg Tab PO 20 mg BID TUTU Administration Heparin Sodium (Porcine) 5,000 unit 04/16/21 22:00 04/29/21 09:10 Heparin 5,000 Unit/1 Ml Vial SUB-Q 5,000 unit Q12HR TUTU Administration Hydromorphone HCl 0.5 mg 04/16/21 14:00 04/28/21 22:22 Hydromorphone 1 Mg/1 Ml Inj IV 0.5 mg Q12H PRN Administration Pain , Severe (7-10) Dexmedetomidine HCl 400 mcg/ 104 mls @ 3.604 mls/hr 04/26/21 04:00 04/29/21 07:55 Sodium Chloride IV 0.2 mcg/kg/hr TITRATE TUTU 3.604 mls/hr Administration Protocol 0.2 MCG/KG/HR Insulin Glargine 5 units 04/24/21 22:00 04/28/21 22:29 Insulin Glargine 100 Units/Ml SUB-Q Not Given QHS [facility]1983 Insulin Human Lispro 0 unit 04/18/21 08:00 04/29/21 09:10 Insulin Lispro 100 Unit/Ml SUB-Q Not Given ACHS [facility]1983 Protocol Methylprednisolone Sodium Succinate 40 mg 04/28/21 14:00 04/29/21 06:12 Methylprednisolone Sod Succinate 40 Mg/1 Ml Inj IV 40 mg Q8HR TUTU Administration Ondansetron HCl 4 mg 04/16/21 14:00 04/27/21 14:33 Ondansetron 4 Mg/2 Ml Inj IV 4 mg Q8H PRN Administration Nausea And Vomiting Oxycodone/Acetaminophen 1 tab 04/16/21 14:00 04/24/21 01:41 Oxycodone /Acetaminophen 5-325mg Tab PO 1 tab Q12H PRN Administration Pain, Moderate (4-6) Sodium Chloride 10 ml 04/16/21 22:00 04/29/21 09:10 Sodium Chloride 0.9% 10 Ml Flush Syringe IV 10 ml BID TUTU Administration Sodium Chloride 10 ml 04/16/21 13:39 Sodium Chloride 0.9% 10 Ml Flush Syringe IV PRN PRN LINE FLUSH Zinc Sulfate 220 mg 04/16/21 22:00 04/29/21 09:09 Zinc Sulfate 220 Mg Cap PO 220 mg BID TUTU Administration Nutrition/Malnutrition Assess - Dietary Evaluation Nutrition/Malnutrition Findings: Nutrition Notes Start: 04/23/21 07:41 Freq: Status: Active Protocol: Document 04/26/21 11:14 (Rec: 04/26/21 11:17 [id number]) Nutrition Notes Initial or Follow up Reassessment Current Diagnosis Respiratory Failure Other Pertinent Diagnosis pneu, COVID-19, hyperglycemia Current Diet Cardiac, Consistent CHO Labs/Tests reviewed Pertinent Medications Decadron Height 5 ft Weight 69.3 kg Usual Body Weight 74.843 kg [place] Body Weight (kg) 45.45 BMI 29.8 Weight change and time frame 7% wt loss in 2 weeks Weight Status Overweight Subjective/Other Information Pt was off bipap for brief period and drank a few sips of water. Pt back on bipap and unable to consume PO. PPN is recommended if unable to start TF and pt remains on bipap. Burn Absent Trauma Absent Current % PO Negligible Minimum of two criteria Yes Energy Intake (severe) < or equal to 50% Estimated Energy Requirement > or equal to 5 days Interpretation of Weight Loss (severe) >5% in 1 month #2 Nutrition Diagnosis Malnutrition Etiology acute illness As Evidenced by Signs and Symptoms <50% EER in >5 days, >5% wt loss in 1 month #1 Nutrition Diagnosis Inadequate oral intake Diagnosis Progress(for reassessment Continues documentation) Is patient on ventilator? No Is Patient Ambulatory and/or Out of Bed No REE-([facility]-confined to bed) [phone] Additional Notes Protein: (1.2-1.5g/kg) 83-104g Fluid: 1 ml/kcal Nutrition Intervention Change Diet Order: continue as able Goal #1 Meet needs as best as possible Anticipated Discharge Needs: Cardiac, consistent CHO Follow-Up By: 04/29/21 Additional Comments F/u: respiratory status, intakes, POC - Attestation Statement I have reviewed and agreed w/ Malnutrition eval & tx plan: Yes <JOSE CERVANTES - Last Filed: 04/30/21 10:01> Assessment and Plan Assessment and plan: I saw and evaluated the patient. I agree with the findings and the plan of care as documented in the Nurse Practitioner's~note, with the following corrections and additions. Hospitalist Physical - Constitutional Vitals: Temp Pulse Resp BP Pulse Ox 98.0 F 48 L 16 112/54 100 04/30/21 07:21 04/30/21 09:15 04/30/21 09:15 04/30/21 09:15 04/30/21 09:15 Results - Labs CBC & Chem 7: 04/30/21 08:00 04/30/21 08:00 Labs: Laboratory Last Values WBC 10.2 K/mm3 (4.5-11.0) 04/30/21 08:00 RBC 4.57 M/mm3 (3.65-5.03) 04/30/21 08:00 Hgb 13.3 gm/dl (10.1-14.3) 04/30/21 08:00 Hct 40.3 % (30.3-42.9) 04/30/21 08:00 MCV 88 fl (79-97) 04/30/21 08:00 MCH 29 pg (28-32) 04/30/21 08:00 MCHC 33 % (30-34) 04/30/21 08:00 RDW 16.1 % (13.2-15.2) H 04/30/21 08:00 Plt Count 251 K/mm3 (140-440) 04/30/21 08:00 Lymph % (Auto) 7.7 % (13.4-35.0) L 04/17/21 03:50 [place] % (Auto) 2.5 % (0.0-7.3) 04/17/21 03:50 Eos % (Auto) 0.0 % (0.0-4.3) 04/17/21 03:50 Baso % (Auto) 0.0 % (0.0-1.8) 04/17/21 03:50 Lymph # (Auto) 0.6 K/mm3 (1.2-5.4) L 04/17/21 03:50 [place] # (Auto) 0.2 K/mm3 (0.0-0.8) 04/17/21 03:50 Eos # (Auto) 0.0 K/mm3 (0.0-0.4) 04/17/21 03:50 Baso # (Auto) 0.0 K/mm3 (0.0-0.1) 04/17/21 03:50 Seg Neutrophils % 89.8 % (40.0-70.0) H 04/17/21 03:50 Seg Neutrophils # 6.7 K/mm3 (1.8-7.7) 04/17/21 03:50 D-Dimer 1796.87 ng/mlDDU (0-234) H 04/30/21 08:00 ABG pH 7.407 pH Units (7.350-7.450) 04/29/21 14:23 POC ABG pCO2 45.5 mmHg (32.0-48.0) 04/26/21 02:45 ABG pCO2 42.2 mm Hg 04/29/21 14:23 POC ABG pO2 70.7 mmHg (83-108) L 04/26/21 02:45 ABG pO2 52.6 mm Hg (80.0-90.0) L 04/29/21 14:23 POC ABG HCO3 28.7 04/26/21 02:45 ABG HCO3 26.0 mmol/L (20.0-26.0) 04/29/21 14:23 ABG O2 Saturation 86.4 % (95.0-99.0) L 04/29/21 14:23 ABG O2 Content 18.1 (0.0-44) 04/29/21 14:23 POC ABG Base Excess 3.4 04/26/21 02:45 ABG Base Excess 1.1 mmol/L (-2.0-3.0) 04/29/21 14:23 ABG Hemoglobin 15.3 gm/dl (12.0-16.0) 04/29/21 14:23 ABG Oxyhemoglobin 93.0 (94-98) L 04/26/21 02:45 ABG Carboxyhemoglobin 1.5 % (0.0-5.0) 04/29/21 14:23 ABG Methemoglobin 0.6 % (0.0-1.5) 04/29/21 14:23 ABG Sodium 132.7 mmol/L (136.0-145.0) L 04/26/21 02:45 ABG Potassium 3.8 mmol/L (3.40-4.50) 04/26/21 02:45 ABG Chloride 98.0 mmol/L (98-107) 04/26/21 02:45 ABG Glucose 115 mg/dL (65-95) H 04/26/21 02:45 Oxyhemoglobin 84.6 % (95.0-99.0) L 04/29/21 14:23 Carboxyhemoglobin 0.7 (0.5-1.5) 04/26/21 02:45 FiO2 100 % 04/29/21 14:23 FiO2 % 100.0 04/26/21 02:45 Sodium 135 mmol/L (137-145) L 04/30/21 08:00 Potassium 4.3 mmol/L (3.6-5.0) 04/30/21 08:00 Chloride 96.3 mmol/L (98-107) L 04/30/21 08:00 Carbon Dioxide 29 mmol/L (22-30) 04/30/21 08:00 Anion Gap 14 mmol/L 04/30/21 08:00 BUN 17 mg/dL (7-17) 04/30/21 08:00 Creatinine 0.2 mg/dL (0.6-1.2) L 04/30/21 08:00 Estimated GFR > 60 ml/min 04/30/21 08:00 BUN/Creatinine Ratio 85 % 04/30/21 08:00 Glucose 153 mg/dL (65-100) H 04/30/21 08:00 POC Glucose 175 mg/dL (70-105) H 04/30/21 07:16 Hemoglobin A1c 8.5 % (4-6) H 04/18/21 07:36 Calcium 9.2 mg/dL (8.4-10.2) 04/30/21 08:00 Phosphorus 2.90 mg/dL (2.5-4.5) D 04/30/21 08:00 Magnesium 1.80 mg/dL (1.7-2.3) 04/30/21 08:00 Ferritin 392.0 ng/mL (10.0-200.0) H 04/17/21 08:26 Total Bilirubin 0.30 mg/dL (0.1-1.2) 04/30/21 08:00 AST 41 units/L (5-40) H 04/30/21 08:00 ALT 76 units/L (7-56) H 04/30/21 08:00 Alkaline Phosphatase 160 units/L (35-129) H 04/30/21 08:00 Lactate Dehydrogenase 522 units/L (91-180) H 04/30/21 08:00 C-Reactive Protein 0.50 mg/dL (0.00-1.30) 04/30/21 08:00 Total Protein 6.1 g/dL (6.3-8.2) L 04/30/21 08:00 Albumin 3.1 g/dL (3.9-5) L 04/30/21 08:00 Albumin/Globulin Ratio 1.0 % 04/30/21 08:00 Procalcitonin < 0.05 ng/mL (<0.15) 04/17/21 08:26 Arterial Blood Glucose 115 mg/dL (65-95) H 04/26/21 02:45 Arterial Blood Ionized Calcium 4.6 mg/dL (4.6-5.3) 04/26/21 02:45 Coronavirus (PCR) Positive (Negative) A 04/17/21 Unknown Amos/IV: Voiding Method External Female Catheter Active Medications - Current Medications Current Medications: Generic Name Dose Route Start Last Admin Trade Name Freq PRN Reason Stop Dose Admin Acetaminophen 650 mg 04/16/21 14:00 04/27/21 18:58 Acetaminophen 325 Mg Tab PO 650 mg Q4H PRN Administration Pain MILD(1-3)/Fever >100.5/[place] Albuterol 2.5 mg 04/16/21 13:39 04/21/21 20:39 Albuterol 2.5 Mg/3 Ml Nebu IH 2.5 mg Q4HRT PRN Administration Shortness Of Breath Artificial Tears 2 drops 04/28/21 18:15 04/28/21 19:07 Hypromellose 0.5% Ophth Soln 15 Ml OU 2 drops Q4H PRN Administration Dry Eye(s) Ascorbic Acid 500 mg 04/24/21 10:00 04/30/21 09:19 Ascorbic Acid 500 Mg Tab PO 500 mg QDAY TUTU Administration Cholecalciferol 1,000 unit 04/17/21 10:00 04/30/21 09:19 Cholecalciferol (Vit D3) 1000 Unit (25 Mcg) Tab PO 1,000 unit QDAY TUTU Administration Dextrose 50 ml 04/18/21 07:30 04/28/21 09:59 Dextrose 50% In Water (25gm) 50 Ml Syringe IV 50 ml Q30MIN PRN Administration Hypoglycemia Protocol Docusate Sodium 100 mg 04/30/21 10:00 04/30/21 09:28 Docusate Sodium 100 Mg Cap PO Not Given BID TUTU Famotidine 20 mg 04/16/21 22:00 04/30/21 09:19 Famotidine 20 Mg Tab PO 20 mg BID TUTU Administration Heparin Sodium (Porcine) 5,000 unit 04/16/21 22:00 04/30/21 09:20 Heparin 5,000 Unit/1 Ml Vial SUB-Q 5,000 unit Q12HR TUTU Administration Hydromorphone HCl 0.5 mg 04/16/21 14:00 04/30/21 07:40 Hydromorphone 1 Mg/1 Ml Inj IV 0.5 mg Q12H PRN Administration Pain , Severe (7-10) Dexmedetomidine HCl 400 mcg/ 104 mls @ 3.604 mls/hr 04/26/21 04:00 04/30/21 07:38 Sodium Chloride IV 0.3 mcg/kg/hr TITRATE TUTU 5.405 mls/hr Titration Protocol 0.2 MCG/KG/HR Amino Acids 2,000 mls @ 84 mls/hr 04/30/21 20:00 Clinimix 4.25%-10% Solution IV 05/01/21 19:59 ONCE TUTU Potassium Chloride 20 meq in 100 mls @ 100 mls/hr 04/30/21 09:25 Kcl 20meq/100ml IV Q1H PRN Potassium 3-3.5 mEq/L Potassium Chloride 20 meq in 100 mls @ 100 mls/hr 04/30/21 09:25 Kcl 20meq/100ml IV Q1H PRN Potassium 2.6-2.9 mEq/L Magnesium Sulfate 1 gm/ Sodium 52 mls @ 26 mls/hr 04/30/21 09:25 Chloride IV Q2H PRN Magnesium level 1.8-2 mg/dL Magnesium Sulfate 2 gm in 50 mls @ 25 mls/hr 04/30/21 09:25 Magnesium Sulfate 2gm/50ml IV Q2H PRN Magnesium level 1.5-1.7 mg/dL Magnesium Sulfate 4 gm in 100 mls @ 25 mls/hr 04/30/21 09:25 Magnesium Sulfate 4gm/100ml IV Q4H PRN Magnesium level < 1.4 mg/dL Sodium Phosphate 15 mmol/ 155 mls @ 40 mls/hr 04/30/21 09:25 Sodium Chloride IV Q4H PRN Phosphorous level 1.2-2.5 mg/d Sodium Phosphate 30 mmol/ 260 mls @ 40 mls/hr 04/30/21 09:25 Sodium Chloride IV Q6H PRN Phosphorous level < 1.2 mg/dL Magnesium Sulfate 2 gm in 50 mls @ 25 mls/hr 04/30/21 10:00 Magnesium Sulfate 2gm/50ml IV 04/30/21 11:59 ONCE ONE Insulin Glargine 5 units 04/24/21 22:00 04/29/21 22:31 Insulin Glargine 100 Units/Ml SUB-Q 5 units QHS TUTU Administration Insulin Human Lispro 0 unit 04/18/21 08:00 04/30/21 09:20 Insulin Lispro 100 Unit/Ml SUB-Q 3 unit ACHS TUTU Administration Protocol Methylprednisolone Sodium Succinate 40 mg 04/28/21 14:00 04/30/21 07:26 Methylprednisolone Sod Succinate 40 Mg/1 Ml Inj IV 40 mg Q8HR TUTU Administration Ondansetron HCl 4 mg 04/16/21 14:00 04/27/21 14:33 Ondansetron 4 Mg/2 Ml Inj IV 4 mg Q8H PRN Administration Nausea And Vomiting Sodium Chloride 10 ml 04/16/21 22:00 04/30/21 09:31 Sodium Chloride 0.9% 10 Ml Flush Syringe IV 10 ml BID TUTU Administration Sodium Chloride 10 ml 04/16/21 13:39 Sodium Chloride 0.9% 10 Ml Flush Syringe IV PRN PRN LINE FLUSH Zinc Sulfate 220 mg 04/16/21 22:00 04/30/21 09:19 Zinc Sulfate 220 Mg Cap PO 220 mg BID TUTU Administration Nutrition/Malnutrition Assess - Dietary Evaluation Nutrition/Malnutrition Findings: Nutrition Notes Start: 04/23/21 07:41 Freq: Status: Active Protocol: Document 04/29/21 14:10 TITUS (Rec: 04/29/21 14:14 [email or web address] [email or web address]) Nutrition Notes Initial or Follow up Reassessment Current Diagnosis Respiratory Failure Other Pertinent Diagnosis COVID-19 pneu Current Diet Cardiac/Consistent CHO Labs/Tests Na 132 Pertinent Medications Solumedrol Height 5 ft Weight 68.4 kg [place] Body Weight (kg) 45.45 BMI 29.4 Weight change and time frame 2# wt loss x 3 days Weight Status Overweight Subjective/Other Information Spoke with pt's RN via phone at 13:56. Pt consumed 100% of breakfast this am. She remains on BiPap support. PICC line placed yesterday. Burn Absent Trauma Absent #2 Nutrition Diagnosis Malnutrition Diagnosis Progress(for reassessment Continues documentation) #1 Nutrition Diagnosis Inadequate oral intake As Evidenced by Signs and Symptoms pt consumed 100% breakfast this am Diagnosis Progress(for reassessment Improved documentation) Is patient on ventilator? No Is Patient Ambulatory and/or Out of Bed No REE-([facility]-confined to bed) [phone] Additional Notes Pro needs 1.2-2g/k-137g/ day Fluid needs 1ml/kcal Nutrition Intervention Change Diet Order: Continue current diet as tolerated Goal #1 PO tolerance Goal #2 PO intakes to meet nutrient needs as best possible Follow-Up By: 05/02/21 Additional Comments F/U: intakes, resp status
--- NOTE | 2021-04-29 11:10 | Progress Note ---
Assessment and Plan 50 y/o female with acute respiratory failure secondary to COVID19 pneumonia. 04/29/21: Continue precedex. Continue IV solumedrol. Prone if able. Guarded prognosis. 04/28/21: Continue Precedex. Picc team attempting to place line now. Stable on Bipap. Ordered steroids IV solumedrol to start today. Prognosis remains guarded, still at very high risk for intubation. 04/27/21: Hypotension improving/improved. Hold on any further lasix dosing. Continue precedex to help with anxeity. later today please attempt HFNC with NRB if needed. Attempt to feed if possible. Steroids end today, please order solumedrol 40q8 to start tomorrow (04/28/21). guarded prognosis. 04/26/21: Hypotension today, most likely from precedex use and diuresis that I did the last several days. Will bolus again today. Consider midodrine if BP does not respond. 04/25/21: Lasix again today. Keep PRN ativan for now. Hold on precedex for now. Guarded prognosis. Labs ordered for tomorrow. 04/24/21: Lasix today. Will also start patient on low dose PRN ativan. If this does not help will then try precedex. Guarded prognosis. 04/23/21: Prone as tolerated. No lasix today. Continue decadron. Guarded prognosis. High risk for intubation and high mortality with intubation. 04/19/21: Prone as tolerated during the day and sleep prone at night. Continue IV remdesivir and steroids. Did get actemra. Guarded prognosis. 1. Daily net negative state 2. Prone if possible 3. IV remdesivir. 4. Should be a candidate for Actemra 5. IV steroids 6. Guarded Prognosis Subjective Date of service: 04/29/21 Interval history: Back on Bipap now, was briefly on HFNC and NRB combo. Picc placed on yesterday. Objective Vital Signs - 12hr 04/28/21 04/28/21 04/28/21 23:15 23:30 23:45 Temperature Pulse Rate 69 58 L 58 L Respiratory 35 H 26 H 26 H Rate Blood Pressure 99/47 97/36 96/34 O2 Sat by Pulse 92 92 92 Oximetry 04/28/21 04/29/21 04/29/21 23:57 00:00 00:15 Temperature 98.9 F Pulse Rate 65 61 Respiratory 29 H 25 H Rate Blood Pressure 92/44 83/41 O2 Sat by Pulse 91 90 Oximetry 04/29/21 04/29/21 04/29/21 00:30 00:45 01:00 Temperature Pulse Rate 63 65 63 Respiratory 26 H 27 H 27 H Rate Blood Pressure 91/46 96/40 97/45 O2 Sat by Pulse 91 91 91 Oximetry 04/29/21 04/29/21 04/29/21 01:15 01:30 01:45 Temperature Pulse Rate 62 59 L 57 L Respiratory 26 H 24 23 Rate Blood Pressure 90/44 102/44 95/43 O2 Sat by Pulse 91 90 90 Oximetry 04/29/21 04/29/21 04/29/21 02:00 02:15 02:30 Temperature Pulse Rate 57 L 59 L 56 L Respiratory 25 H 24 23 Rate Blood Pressure 101/50 93/47 97/46 O2 Sat by Pulse 94 89 92 Oximetry 04/29/21 04/29/21 04/29/21 02:45 03:01 03:15 Temperature Pulse Rate 59 L 59 L 60 Respiratory 21 21 21 Rate Blood Pressure 98/51 112/52 111/59 O2 Sat by Pulse 91 96 95 Oximetry 04/29/21 04/29/21 04/29/21 03:23 03:30 03:45 Temperature 98.8 F Pulse Rate 55 L 56 L Respiratory 21 22 Rate Blood Pressure 106/56 106/58 O2 Sat by Pulse 95 95 Oximetry 04/29/21 04/29/21 04/29/21 03:49 04:00 04:15 Temperature Pulse Rate 56 L 53 L 56 L Respiratory 21 20 24 Rate Blood Pressure 106/58 103/56 100/56 O2 Sat by Pulse 94 94 91 Oximetry 04/29/21 04/29/21 04/29/21 04:30 04:45 05:00 Temperature Pulse Rate 54 L 53 L 55 L Respiratory 22 21 22 Rate Blood Pressure 106/55 104/58 107/56 O2 Sat by Pulse 94 93 93 Oximetry 04/29/21 04/29/21 04/29/21 05:15 05:30 05:45 Temperature Pulse Rate 63 63 69 Respiratory 28 H 28 H 28 H Rate Blood Pressure 107/63 106/51 105/59 O2 Sat by Pulse 96 92 92 Oximetry 04/29/21 04/29/21 04/29/21 06:00 06:15 06:30 Temperature Pulse Rate 61 78 78 Respiratory 27 H 31 H 38 H Rate Blood Pressure 99/51 115/52 102/50 O2 Sat by Pulse 93 92 91 Oximetry 04/29/21 04/29/21 04/29/21 06:45 07:00 07:15 Temperature 98.0 F Pulse Rate 69 68 62 Respiratory 34 H 30 H 30 H Rate Blood Pressure 105/48 109/50 101/51 O2 Sat by Pulse 91 92 94 Oximetry 04/29/21 04/29/21 04/29/21 07:30 07:45 08:00 Temperature Pulse Rate 63 61 69 Respiratory 28 H 31 H 35 H Rate Blood Pressure 105/55 108/56 112/51 O2 Sat by Pulse 93 94 93 Oximetry 04/29/21 04/29/21 04/29/21 08:15 08:23 08:30 Temperature Pulse Rate 64 68 81 Respiratory 33 H 29 H 33 H Rate Blood Pressure 111/52 111/52 115/55 O2 Sat by Pulse 95 93 89 Oximetry 04/29/21 04/29/21 04/29/21 08:33 08:45 09:00 Temperature Pulse Rate 90 98 H Respiratory 34 H 37 H Rate Blood Pressure 102/46 109/48 O2 Sat by Pulse 92 86 Oximetry 04/29/21 04/29/21 04/29/21 09:15 09:31 09:45 Temperature Pulse Rate 99 H 102 H 101 H Respiratory 40 H 48 H 42 H Rate Blood Pressure 98/47 105/61 103/46 O2 Sat by Pulse 84 86 85 Oximetry 04/29/21 04/29/21 04/29/21 10:01 10:15 10:31 Temperature Pulse Rate 95 H 78 68 Respiratory 47 H 40 H 29 H Rate Blood Pressure 103/46 105/61 O2 Sat by Pulse 85 97 98 Oximetry Constitutional: no acute distress, other (on hiflo 100%) Eyes: non-icteric, other (sl injected) ENT: oropharynx moist, other (white plaques on tongue) Ascultation: Bilateral: diminished breath sounds Cardiovascular: regular rate and rhythm Gastrointestinal: normoactive bowel sounds, soft, non-tender, non-distended Extremities: no cyanosis Psychiatric: anxious CBC and BMP: 04/29/21 06:05 08/16/21 06:05 ABG, PT/INR, D-dimer: ABG ABG pH 7.417 (7.320-7.450) 04/26/21 02:45 POC ABG pCO2 45.5 mmHg (32.0-48.0) 04/26/21 02:45 POC ABG pO2 70.7 mmHg (83-108) L 04/26/21 02:45 POC ABG HCO3 28.7 04/26/21 02:45 ABG O2 Saturation 93.9 (0-100) 04/26/21 02:45 PT/INR, D-dimer D-Dimer 262.48 ng/mlDDU (0-234) H 04/17/21 08:26 Abnormal lab findings: Abnormal Labs 04/16/21 04/16/21 04/16/21 11:42 11:42 11:42 WBC MCHC RDW 16.1 H Lymph % (Auto) 7.8 L Lymph # (Auto) 0.8 L Seg Neutrophils % 87.7 H Seg Neutrophils # 8.5 H D-Dimer 338.70 H ABG pH POC ABG pO2 ABG Oxyhemoglobin ABG Sodium ABG Glucose Carboxyhemoglobin Sodium Potassium Chloride Carbon Dioxide BUN Creatinine Glucose 194 H POC Glucose Hemoglobin A1c Ferritin AST Lactate Dehydrogenase C-Reactive Protein Total Protein 8.4 H Albumin 3.8 L Arterial Blood Glucose Coronavirus (PCR) 04/16/21 04/16/21 04/17/21 11:42 11:42 03:50 WBC MCHC RDW 16.0 H Lymph % (Auto) 7.7 L Lymph # (Auto) 0.6 L Seg Neutrophils % 89.8 H Seg Neutrophils # D-Dimer ABG pH POC ABG pO2 ABG Oxyhemoglobin ABG Sodium ABG Glucose Carboxyhemoglobin Sodium Potassium Chloride Carbon Dioxide BUN Creatinine Glucose 195 H POC Glucose Hemoglobin A1c Ferritin 254.3 H AST Lactate Dehydrogenase 359 H C-Reactive Protein 15.20 H Total Protein Albumin Arterial Blood Glucose Coronavirus (PCR) 04/17/21 04/17/21 04/17/21 03:50 08:26 08:26 WBC MCHC RDW Lymph % (Auto) Lymph # (Auto) Seg Neutrophils % Seg Neutrophils # D-Dimer 262.48 H ABG pH POC ABG pO2 ABG Oxyhemoglobin ABG Sodium ABG Glucose Carboxyhemoglobin Sodium Potassium Chloride Carbon Dioxide BUN 20 H Creatinine 0.5 L Glucose 249 H 225 H POC Glucose Hemoglobin A1c Ferritin AST Lactate Dehydrogenase 338 H C-Reactive Protein 17.20 H Total Protein Albumin 3.2 L Arterial Blood Glucose Coronavirus (PCR) 04/17/21 04/17/21 04/17/21 08:26 15:04 Unknown WBC MCHC RDW Lymph % (Auto) Lymph # (Auto) Seg Neutrophils % Seg Neutrophils # D-Dimer ABG pH POC ABG pO2 ABG Oxyhemoglobin ABG Sodium ABG Glucose Carboxyhemoglobin Sodium Potassium Chloride Carbon Dioxide BUN 20 H Creatinine 0.5 L Glucose 246 H POC Glucose Hemoglobin A1c Ferritin 392.0 H AST Lactate Dehydrogenase C-Reactive Protein Total Protein 8.3 H Albumin 3.1 L Arterial Blood Glucose Coronavirus (PCR) Positive A 04/18/21 04/18/21 04/18/21 05:06 05:06 07:36 WBC 11.6 H MCHC RDW 16.1 H Lymph % (Auto) Lymph # (Auto) Seg Neutrophils % Seg Neutrophils # D-Dimer ABG pH POC ABG pO2 ABG Oxyhemoglobin ABG Sodium ABG Glucose Carboxyhemoglobin Sodium Potassium 5.2 H Chloride Carbon Dioxide BUN 22 H Creatinine 0.5 L Glucose 315 H POC Glucose Hemoglobin A1c 8.5 H Ferritin AST Lactate Dehydrogenase C-Reactive Protein Total Protein Albumin 3.3 L Arterial Blood Glucose Coronavirus (PCR) 04/18/21 04/18/21 04/18/21 11:59 16:43 23:24 WBC MCHC RDW Lymph % (Auto) Lymph # (Auto) Seg Neutrophils % Seg Neutrophils # D-Dimer ABG pH POC ABG pO2 ABG Oxyhemoglobin ABG Sodium ABG Glucose Carboxyhemoglobin Sodium Potassium Chloride Carbon Dioxide BUN Creatinine Glucose POC Glucose 284 H 273 H 290 H Hemoglobin A1c Ferritin AST Lactate Dehydrogenase C-Reactive Protein Total Protein Albumin Arterial Blood Glucose Coronavirus (PCR) 04/19/21 04/19/21 04/19/21 04:19 04:19 08:10 WBC MCHC RDW 15.7 H Lymph % (Auto) Lymph # (Auto) Seg Neutrophils % Seg Neutrophils # D-Dimer ABG pH POC ABG pO2 ABG Oxyhemoglobin ABG Sodium ABG Glucose Carboxyhemoglobin Sodium Potassium Chloride Carbon Dioxide BUN 27 H Creatinine 0.4 L Glucose 184 H POC Glucose 194 H Hemoglobin A1c Ferritin AST Lactate Dehydrogenase C-Reactive Protein Total Protein Albumin 3.1 L Arterial Blood Glucose Coronavirus (PCR) 04/19/21 04/19/21 04/19/21 11:38 16:25 22:04 WBC MCHC RDW Lymph % (Auto) Lymph # (Auto) Seg Neutrophils % Seg Neutrophils # D-Dimer ABG pH POC ABG pO2 ABG Oxyhemoglobin ABG Sodium ABG Glucose Carboxyhemoglobin Sodium Potassium Chloride Carbon Dioxide BUN Creatinine Glucose POC Glucose 224 H 297 H 251 H Hemoglobin A1c Ferritin AST Lactate Dehydrogenase C-Reactive Protein Total Protein Albumin Arterial Blood Glucose Coronavirus (PCR) 04/20/21 04/20/21 04/20/21 05:28 08:43 16:21 WBC MCHC RDW Lymph % (Auto) Lymph # (Auto) Seg Neutrophils % Seg Neutrophils # D-Dimer ABG pH POC ABG pO2 ABG Oxyhemoglobin ABG Sodium ABG Glucose Carboxyhemoglobin Sodium Potassium Chloride Carbon Dioxide BUN 27 H Creatinine Glucose 192 H POC Glucose 173 H 253 H Hemoglobin A1c Ferritin AST Lactate Dehydrogenase C-Reactive Protein Total Protein Albumin 3.0 L Arterial Blood Glucose Coronavirus (PCR) 04/21/21 04/21/21 04/21/21 07:58 12:05 16:08 WBC MCHC RDW Lymph % (Auto) Lymph # (Auto) Seg Neutrophils % Seg Neutrophils # D-Dimer ABG pH POC ABG pO2 ABG Oxyhemoglobin ABG Sodium ABG Glucose Carboxyhemoglobin Sodium Potassium Chloride Carbon Dioxide BUN Creatinine Glucose POC Glucose 140 H 252 H 214 H Hemoglobin A1c Ferritin AST Lactate Dehydrogenase C-Reactive Protein Total Protein Albumin Arterial Blood Glucose Coronavirus (PCR) 04/21/21 04/22/21 04/22/21 21:42 08:37 12:01 WBC MCHC RDW Lymph % (Auto) Lymph # (Auto) Seg Neutrophils % Seg Neutrophils # D-Dimer ABG pH 7.457 H POC ABG pO2 49.4 L ABG Oxyhemoglobin 85.6 L ABG Sodium ABG Glucose 121 H Carboxyhemoglobin 0.3 L Sodium Potassium Chloride Carbon Dioxide BUN Creatinine Glucose POC Glucose 162 H 227 H Hemoglobin A1c Ferritin AST Lactate Dehydrogenase C-Reactive Protein Total Protein Albumin Arterial Blood Glucose 121 H Coronavirus (PCR) 04/22/21 04/22/21 04/23/21 16:26 22:23 04:52 WBC MCHC RDW 15.7 H Lymph % (Auto) Lymph # (Auto) Seg Neutrophils % Seg Neutrophils # D-Dimer ABG pH POC ABG pO2 ABG Oxyhemoglobin ABG Sodium ABG Glucose Carboxyhemoglobin Sodium Potassium Chloride Carbon Dioxide BUN Creatinine Glucose POC Glucose 200 H 136 H Hemoglobin A1c Ferritin AST Lactate Dehydrogenase C-Reactive Protein Total Protein Albumin Arterial Blood Glucose Coronavirus (PCR) 04/23/21 04/23/21 04/23/21 04:52 12:06 17:41 WBC MCHC RDW Lymph % (Auto) Lymph # (Auto) Seg Neutrophils % Seg Neutrophils # D-Dimer ABG pH POC ABG pO2 ABG Oxyhemoglobin ABG Sodium ABG Glucose Carboxyhemoglobin Sodium 136 L Potassium Chloride 97.7 L Carbon Dioxide BUN 23 H Creatinine Glucose 101 H POC Glucose 202 H 169 H Hemoglobin A1c Ferritin AST 46 H Lactate Dehydrogenase C-Reactive Protein Total Protein Albumin 3.3 L Arterial Blood Glucose Coronavirus (PCR) 04/23/21 04/24/21 04/24/21 23:08 05:17 08:38 WBC MCHC RDW Lymph % (Auto) Lymph # (Auto) Seg Neutrophils % Seg Neutrophils # D-Dimer ABG pH POC ABG pO2 ABG Oxyhemoglobin ABG Sodium ABG Glucose Carboxyhemoglobin Sodium Potassium Chloride Carbon Dioxide BUN Creatinine Glucose POC Glucose 111 H 108 H 126 H Hemoglobin A1c Ferritin AST Lactate Dehydrogenase C-Reactive Protein Total Protein Albumin Arterial Blood Glucose Coronavirus (PCR) 04/24/21 04/24/21 04/24/21 11:54 17:57 21:23 WBC MCHC RDW Lymph % (Auto) Lymph # (Auto) Seg Neutrophils % Seg Neutrophils # D-Dimer ABG pH POC ABG pO2 ABG Oxyhemoglobin ABG Sodium ABG Glucose Carboxyhemoglobin Sodium Potassium Chloride Carbon Dioxide BUN Creatinine Glucose POC Glucose 147 H 177 H 138 H Hemoglobin A1c Ferritin AST Lactate Dehydrogenase C-Reactive Protein Total Protein Albumin Arterial Blood Glucose Coronavirus (PCR) 04/25/21 04/25/21 04/25/21 07:06 11:23 15:43 WBC MCHC RDW Lymph % (Auto) Lymph # (Auto) Seg Neutrophils % Seg Neutrophils # D-Dimer ABG pH POC ABG pO2 ABG Oxyhemoglobin ABG Sodium ABG Glucose Carboxyhemoglobin Sodium Potassium Chloride Carbon Dioxide BUN Creatinine Glucose POC Glucose 147 H 169 H 227 H Hemoglobin A1c Ferritin AST Lactate Dehydrogenase C-Reactive Protein Total Protein Albumin Arterial Blood Glucose Coronavirus (PCR) 04/25/21 04/26/21 04/26/21 21:22 02:45 05:15 WBC MCHC RDW Lymph % (Auto) Lymph # (Auto) Seg Neutrophils % Seg Neutrophils # D-Dimer ABG pH POC ABG pO2 70.7 L ABG Oxyhemoglobin 93.0 L ABG Sodium 132.7 L ABG Glucose 115 H Carboxyhemoglobin Sodium Potassium Chloride 95.8 L Carbon Dioxide 32 H BUN 20 H Creatinine Glucose 102 H POC Glucose 196 H Hemoglobin A1c Ferritin AST Lactate Dehydrogenase C-Reactive Protein Total Protein Albumin Arterial Blood Glucose 115 H Coronavirus (PCR) 04/26/21 04/26/21 04/26/21 11:49 16:09 21:07 WBC MCHC RDW Lymph % (Auto) Lymph # (Auto) Seg Neutrophils % Seg Neutrophils # D-Dimer ABG pH POC ABG pO2 ABG Oxyhemoglobin ABG Sodium ABG Glucose Carboxyhemoglobin Sodium Potassium Chloride Carbon Dioxide BUN Creatinine Glucose POC Glucose 114 H 188 H 136 H Hemoglobin A1c Ferritin AST Lactate Dehydrogenase C-Reactive Protein Total Protein Albumin Arterial Blood Glucose Coronavirus (PCR) 04/27/21 04/27/21 04/28/21 17:34 22:12 08:26 WBC MCHC RDW Lymph % (Auto) Lymph # (Auto) Seg Neutrophils % Seg Neutrophils # D-Dimer ABG pH POC ABG pO2 ABG Oxyhemoglobin ABG Sodium ABG Glucose Carboxyhemoglobin Sodium Potassium Chloride Carbon Dioxide BUN Creatinine Glucose POC Glucose 128 H 159 H 69 L Hemoglobin A1c Ferritin AST Lactate Dehydrogenase C-Reactive Protein Total Protein Albumin Arterial Blood Glucose Coronavirus (PCR) 04/28/21 04/28/21 04/29/21 12:22 21:11 06:05 WBC MCHC RDW Lymph % (Auto) Lymph # (Auto) Seg Neutrophils % Seg Neutrophils # D-Dimer ABG pH POC ABG pO2 ABG Oxyhemoglobin ABG Sodium ABG Glucose Carboxyhemoglobin Sodium 132 L Potassium Chloride 94.4 L Carbon Dioxide BUN Creatinine 0.2 L D Glucose 140 H POC Glucose 141 H 171 H Hemoglobin A1c Ferritin AST Lactate Dehydrogenase C-Reactive Protein Total Protein Albumin Arterial Blood Glucose Coronavirus (PCR) 04/29/21 04/29/21 06:05 07:24 WBC MCHC 35 H RDW 15.9 H Lymph % (Auto) Lymph # (Auto) Seg Neutrophils % Seg Neutrophils # D-Dimer ABG pH POC ABG pO2 ABG Oxyhemoglobin ABG Sodium ABG Glucose Carboxyhemoglobin Sodium Potassium Chloride Carbon Dioxide BUN Creatinine Glucose POC Glucose 141 H Hemoglobin A1c Ferritin AST Lactate Dehydrogenase C-Reactive Protein Total Protein Albumin Arterial Blood Glucose Coronavirus (PCR)
--- NOTE | 2021-04-29 12:38 | Progress Note ---
Assessment and Plan Cultures: Blood culture no growth so far Covid PCR: Positive A/P: 50-year-old female past medical history obesity, GERD, hyperlipidemia presents with COVID-19 pneumonia #Severe COVID-19 pneumonia #Acute hypoxemic respiratory failure: secondary to COVID-19 infection. Currently on high flow nasal cannula/BiPAP #Obesity Recs: -Methylprednisolone/steroids per primary. Complete 10 days. -Completed Remdesivir, s/p Actemra once -monitor q48-72h inflammatory markers - ferritin, Ddimer, CRP -Anticoagulation per hospital protocol Chandni Dominguez MD, FACP [facility] ([facility] O: [phone] F: [phone] Subjective Date of service: 04/29/21 Interval history: No fever. On BiPAP. Objective - Exam Narrative Exam: Physical Exam (reviewed in chart to minimize risk of transmission) Constitutional: deferred Head, Ears, Nose: deferred Eyes: deferred Neck: deferred Oral: deferred Cardiovascular: deferred Respiratory: deferred GI: deferred Musculoskeletal: deferred Skin: deferred Hem/Lymphatic: deferred Psych: deferred Neurological: deferred - Constitutional Vitals: Vital Signs Temp Pulse Resp BP Pulse Ox 99.0 F 68 29 H 105/61 98 04/29/21 12:00 04/29/21 10:31 04/29/21 10:31 04/29/21 10:15 04/29/21 10:31 Temperature -Last 24 Hours Temperature 99.0 F Temperature 98.0 F Temperature 98.8 F Temperature 98.9 F Temperature 99.9 F - Labs CBC & Chem 7: 04/29/21 06:05 04/29/21 06:05 Labs: Abnormal lab results 04/28/21 04/29/21 04/29/21 Range/Units 21:11 06:05 06:05 MCHC 35 H (30-34) % RDW 15.9 H (13.2-15.2) % Sodium 132 L (137-145) mmol/L Chloride 94.4 L (98-107) mmol/L Creatinine 0.2 L D (0.6-1.2) mg/dL Glucose 140 H (65-100) mg/dL POC Glucose 171 H (70-105) mg/dL 04/29/21 04/29/21 Range/Units 07:24 11:36 MCHC (30-34) % RDW (13.2-15.2) % Sodium (137-145) mmol/L Chloride (98-107) mmol/L Creatinine (0.6-1.2) mg/dL Glucose (65-100) mg/dL POC Glucose 141 H 220 H (70-105) mg/dL
[2021-04-29 15:35] LABS: ABG Base Excess 1.1 mmol/L (-2.0-3.0); ABG Methemoglobin 0.6 % (0.0-1.5); ABG Oxygen Saturation 86.4 % (95.0-99.0); ABG PCO2 42.2 mm Hg; ABG PH 7.407 pH Units (7.350-7.450); ABG PO2 52.6 mm Hg (80.0-90.0)
[2021-04-29] MEDS: HYDROmorphone 1 MG/1 ML INJ IV PRN ×2 (15:43→22:45)
[2021-04-29] MEDS ORDERED: FUROSEMIDE 20 MG/2 ML INJ IV STA (17:08)
[2021-04-29] MEDS: INSULIN GLARGINE 100 UNITS/ML SUB-Q SCH (22:31)
--- NOTE | 2021-04-30 03:24 | XRay Report ---
CHEST 1 VIEW 04/30/2021 1:57 AM INDICATION / CLINICAL INFORMATION: sob. COMPARISON: 04/16/2021 FINDINGS: SUPPORT DEVICES: New right PICC line has tip in SVC. HEART / MEDIASTINUM: Moderate pneumomediastinum has developed. Stable cardiomegaly. LUNGS / PLEURA: Bilateral parenchymal disease has slightly worsened. No pneumothorax. ADDITIONAL FINDINGS: No significant additional findings. IMPRESSION: 1. Worsening bilateral pneumonia with new pneumomediastinum Signer Name: Choco Wolff MD Signed: 04/30/2021 3:20 AM Workstation Name: [id number]
[2021-04-30] MEDS: DOCUSATE SODIUM 100 MG/10 ML ORAL LIQD PO SCH ×2 (07:26→09:19)
[2021-04-30] MEDS: methylPREDNISolone Sod Succinate 40 MG/1 ML INJ IV SCH ×3 (07:26→21:31)
[2021-04-30] MEDS: HYDROmorphone 1 MG/1 ML INJ IV PRN ×2 (07:40→22:16)
[2021-04-30 09:14] LABS: Alanine Aminotransferase 76 units/L (7-56); Albumin 3.1 g/dL (3.9-5); Blood Urea Nitrogen 17 mg/dL (7-17); Calcium 9.2 mg/dL (8.4-10.2); Hemolysis Index 4
--- NOTE | 2021-04-30 09:14 | Progress Note ---
Assessment and Plan 50 y/o female with acute respiratory failure secondary to COVID19 pneumonia. 04/30/21: Will start CLinimix today for nutritional support, without electrolytes. Check labs in am. Prone if able. Continue precedx for anxiety. Very very guarded prognosis. Attempting our best to not intubate. 04/29/21: Continue precedex. Continue IV solumedrol. Prone if able. Guarded prognosis. 04/28/21: Continue Precedex. Picc team attempting to place line now. Stable on Bipap. Ordered steroids IV solumedrol to start today. Prognosis remains guarded, still at very high risk for intubation. 04/27/21: Hypotension improving/improved. Hold on any further lasix dosing. Continue precedex to help with anxeity. later today please attempt HFNC with NRB if needed. Attempt to feed if possible. Steroids end today, please order solumedrol 40q8 to start tomorrow (04/28/21). guarded prognosis. 04/26/21: Hypotension today, most likely from precedex use and diuresis that I did the last several days. Will bolus again today. Consider midodrine if BP does not respond. 04/25/21: Lasix again today. Keep PRN ativan for now. Hold on precedex for now. Guarded prognosis. Labs ordered for tomorrow. 04/24/21: Lasix today. Will also start patient on low dose PRN ativan. If this does not help will then try precedex. Guarded prognosis. 04/23/21: Prone as tolerated. No lasix today. Continue decadron. Guarded prognosis. High risk for intubation and high mortality with intubation. 04/19/21: Prone as tolerated during the day and sleep prone at night. Continue IV remdesivir and steroids. Did get actemra. Guarded prognosis. 1. Daily net negative state 2. Prone if possible 3. IV remdesivir. 4. Should be a candidate for Actemra 5. IV steroids 6. Guarded Prognosis Subjective Date of service: 04/30/21 Interval history: Currently on bipap but sat is reading 100%. Awake. Objective Vital Signs - 12hr 04/29/21 04/29/21 04/29/21 21:15 21:30 21:45 Temperature Pulse Rate 66 73 66 Respiratory 26 H 29 H 28 H Rate Blood Pressure 101/47 103/49 105/53 O2 Sat by Pulse 99 98 98 Oximetry 04/29/21 04/29/21 04/29/21 22:00 22:15 22:31 Temperature Pulse Rate 62 64 79 Respiratory 29 H 34 H 32 H Rate Blood Pressure 97/52 94/53 112/52 O2 Sat by Pulse 99 99 97 Oximetry 04/29/21 04/29/21 04/29/21 22:45 23:00 23:05 Temperature Pulse Rate 69 60 58 L Respiratory 32 H 24 23 Rate Blood Pressure 108/60 108/60 94/41 O2 Sat by Pulse 98 100 100 Oximetry 04/29/21 04/29/21 04/29/21 23:15 23:30 23:45 Temperature Pulse Rate 56 L 59 L 56 L Respiratory 23 24 24 Rate Blood Pressure 95/46 94/53 94/51 O2 Sat by Pulse 99 100 100 Oximetry 04/30/21 04/30/21 04/30/21 00:00 00:15 00:30 Temperature 98.8 F Pulse Rate 55 L 56 L 57 L Respiratory 21 22 22 Rate Blood Pressure 90/49 95/50 95/52 O2 Sat by Pulse 100 100 100 Oximetry 04/30/21 04/30/21 04/30/21 00:45 01:00 01:15 Temperature Pulse Rate 64 58 L 55 L Respiratory 26 H 28 H 21 Rate Blood Pressure 101/51 95/51 89/51 O2 Sat by Pulse 98 98 100 Oximetry 04/30/21 04/30/21 04/30/21 01:30 01:45 02:00 Temperature Pulse Rate 55 L 54 L 58 L Respiratory 20 24 24 Rate Blood Pressure 99/50 94/49 94/53 O2 Sat by Pulse 100 100 99 Oximetry 04/30/21 04/30/21 04/30/21 02:15 02:30 02:34 Temperature Pulse Rate 64 53 L 55 L Respiratory 32 H 19 25 H Rate Blood Pressure 111/52 96/46 96/66 O2 Sat by Pulse 99 99 96 Oximetry 04/30/21 04/30/21 04/30/21 02:45 03:00 03:15 Temperature Pulse Rate 54 L 52 L 55 L Respiratory 23 25 H 24 Rate Blood Pressure 98/47 93/44 100/43 O2 Sat by Pulse 99 100 99 Oximetry 04/30/21 04/30/21 04/30/21 03:25 03:30 03:45 Temperature 98.8 F Pulse Rate 53 L 54 L Respiratory 21 24 Rate Blood Pressure 97/44 99/55 O2 Sat by Pulse 99 100 Oximetry 04/30/21 04/30/21 04/30/21 04:00 04:15 04:30 Temperature Pulse Rate 54 L 61 58 L Respiratory 22 25 H 21 Rate Blood Pressure 94/52 106/52 103/46 O2 Sat by Pulse 99 99 100 Oximetry 04/30/21 04/30/21 04/30/21 04:45 05:00 05:15 Temperature Pulse Rate 56 L 53 L 56 L Respiratory 23 24 25 H Rate Blood Pressure 98/53 96/51 94/45 O2 Sat by Pulse 100 100 100 Oximetry 04/30/21 04/30/21 04/30/21 05:30 05:45 06:00 Temperature Pulse Rate 52 L 67 52 L Respiratory 24 31 H 22 Rate Blood Pressure 101/46 98/53 97/43 O2 Sat by Pulse 99 95 100 Oximetry 04/30/21 04/30/21 04/30/21 06:15 06:31 06:45 Temperature Pulse Rate 62 69 73 Respiratory 29 H 33 H 36 H Rate Blood Pressure 104/56 104/56 106/47 O2 Sat by Pulse 97 96 96 Oximetry 04/30/21 04/30/21 04/30/21 07:00 07:15 07:21 Temperature 98.0 F Pulse Rate 62 60 Respiratory 26 H 27 H Rate Blood Pressure 106/54 98/53 O2 Sat by Pulse 100 100 Oximetry 04/30/21 04/30/21 07:30 08:06 Temperature Pulse Rate 65 54 L Respiratory 32 H 19 Rate Blood Pressure 117/63 108/50 O2 Sat by Pulse 100 99 Oximetry Constitutional: no acute distress, other (on hiflo 100%) Eyes: non-icteric, other (sl injected) ENT: oropharynx moist, other (white plaques on tongue) Ascultation: Bilateral: diminished breath sounds Cardiovascular: regular rate and rhythm Gastrointestinal: normoactive bowel sounds, soft, non-tender, non-distended Extremities: no cyanosis Psychiatric: anxious CBC and BMP: 04/29/21 06:05 04/29/21 06:05 ABG, PT/INR, D-dimer: ABG ABG pH 7.407 pH Units (7.350-7.450) 04/29/21 14:23 POC ABG pCO2 45.5 mmHg (32.0-48.0) 04/26/21 02:45 ABG pCO2 42.2 mm Hg 04/29/21 14:23 POC ABG pO2 70.7 mmHg (83-108) L 04/26/21 02:45 ABG pO2 52.6 mm Hg (80.0-90.0) L 04/29/21 14:23 POC ABG HCO3 28.7 04/26/21 02:45 ABG O2 Saturation 86.4 % (95.0-99.0) L 04/29/21 14:23 PT/INR, D-dimer D-Dimer 262.48 ng/mlDDU (0-234) H 04/17/21 08:26 Abnormal lab findings: Abnormal Labs 04/16/21 04/16/21 04/16/21 11:42 11:42 11:42 WBC MCHC RDW 16.1 H Lymph % (Auto) 7.8 L Lymph # (Auto) 0.8 L Seg Neutrophils % 87.7 H Seg Neutrophils # 8.5 H D-Dimer 338.70 H ABG pH POC ABG pO2 ABG pO2 ABG O2 Saturation ABG Oxyhemoglobin ABG Sodium ABG Glucose Oxyhemoglobin Carboxyhemoglobin Sodium Potassium Chloride Carbon Dioxide BUN Creatinine Glucose 194 H POC Glucose Hemoglobin A1c Ferritin AST Lactate Dehydrogenase C-Reactive Protein Total Protein 8.4 H Albumin 3.8 L Arterial Blood Glucose Coronavirus (PCR) 04/16/21 04/16/21 04/17/21 11:42 11:42 03:50 WBC MCHC RDW 16.0 H Lymph % (Auto) 7.7 L Lymph # (Auto) 0.6 L Seg Neutrophils % 89.8 H Seg Neutrophils # D-Dimer ABG pH POC ABG pO2 ABG pO2 ABG O2 Saturation ABG Oxyhemoglobin ABG Sodium ABG Glucose Oxyhemoglobin Carboxyhemoglobin Sodium Potassium Chloride Carbon Dioxide BUN Creatinine Glucose 195 H POC Glucose Hemoglobin A1c Ferritin 254.3 H AST Lactate Dehydrogenase 359 H C-Reactive Protein 15.20 H Total Protein Albumin Arterial Blood Glucose Coronavirus (PCR) 04/17/21 04/17/21 04/17/21 03:50 08:26 08:26 WBC MCHC RDW Lymph % (Auto) Lymph # (Auto) Seg Neutrophils % Seg Neutrophils # D-Dimer 262.48 H ABG pH POC ABG pO2 ABG pO2 ABG O2 Saturation ABG Oxyhemoglobin ABG Sodium ABG Glucose Oxyhemoglobin Carboxyhemoglobin Sodium Potassium Chloride Carbon Dioxide BUN 20 H Creatinine 0.5 L Glucose 249 H 225 H POC Glucose Hemoglobin A1c Ferritin AST Lactate Dehydrogenase 338 H C-Reactive Protein 17.20 H Total Protein Albumin 3.2 L Arterial Blood Glucose Coronavirus (PCR) 04/17/21 04/17/21 04/17/21 08:26 15:04 Unknown WBC MCHC RDW Lymph % (Auto) Lymph # (Auto) Seg Neutrophils % Seg Neutrophils # D-Dimer ABG pH POC ABG pO2 ABG pO2 ABG O2 Saturation ABG Oxyhemoglobin ABG Sodium ABG Glucose Oxyhemoglobin Carboxyhemoglobin Sodium Potassium Chloride Carbon Dioxide BUN 20 H Creatinine 0.5 L Glucose 246 H POC Glucose Hemoglobin A1c Ferritin 392.0 H AST Lactate Dehydrogenase C-Reactive Protein Total Protein 8.3 H Albumin 3.1 L Arterial Blood Glucose Coronavirus (PCR) Positive A 04/18/21 04/18/21 04/18/21 05:06 05:06 07:36 WBC 11.6 H MCHC RDW 16.1 H Lymph % (Auto) Lymph # (Auto) Seg Neutrophils % Seg Neutrophils # D-Dimer ABG pH POC ABG pO2 ABG pO2 ABG O2 Saturation ABG Oxyhemoglobin ABG Sodium ABG Glucose Oxyhemoglobin Carboxyhemoglobin Sodium Potassium 5.2 H Chloride Carbon Dioxide BUN 22 H Creatinine 0.5 L Glucose 315 H POC Glucose Hemoglobin A1c 8.5 H Ferritin AST Lactate Dehydrogenase C-Reactive Protein Total Protein Albumin 3.3 L Arterial Blood Glucose Coronavirus (PCR) 04/18/21 04/18/21 04/18/21 11:59 16:43 23:24 WBC MCHC RDW Lymph % (Auto) Lymph # (Auto) Seg Neutrophils % Seg Neutrophils # D-Dimer ABG pH POC ABG pO2 ABG pO2 ABG O2 Saturation ABG Oxyhemoglobin ABG Sodium ABG Glucose Oxyhemoglobin Carboxyhemoglobin Sodium Potassium Chloride Carbon Dioxide BUN Creatinine Glucose POC Glucose 284 H 273 H 290 H Hemoglobin A1c Ferritin AST Lactate Dehydrogenase C-Reactive Protein Total Protein Albumin Arterial Blood Glucose Coronavirus (PCR) 04/19/21 04/19/21 04/19/21 04:19 04:19 08:10 WBC MCHC RDW 15.7 H Lymph % (Auto) Lymph # (Auto) Seg Neutrophils % Seg Neutrophils # D-Dimer ABG pH POC ABG pO2 ABG pO2 ABG O2 Saturation ABG Oxyhemoglobin ABG Sodium ABG Glucose Oxyhemoglobin Carboxyhemoglobin Sodium Potassium Chloride Carbon Dioxide BUN 27 H Creatinine 0.4 L Glucose 184 H POC Glucose 194 H Hemoglobin A1c Ferritin AST Lactate Dehydrogenase C-Reactive Protein Total Protein Albumin 3.1 L Arterial Blood Glucose Coronavirus (PCR) 04/19/21 04/19/21 04/19/21 11:38 16:25 22:04 WBC MCHC RDW Lymph % (Auto) Lymph # (Auto) Seg Neutrophils % Seg Neutrophils # D-Dimer ABG pH POC ABG pO2 ABG pO2 ABG O2 Saturation ABG Oxyhemoglobin ABG Sodium ABG Glucose Oxyhemoglobin Carboxyhemoglobin Sodium Potassium Chloride Carbon Dioxide BUN Creatinine Glucose POC Glucose 224 H 297 H 251 H Hemoglobin A1c Ferritin AST Lactate Dehydrogenase C-Reactive Protein Total Protein Albumin Arterial Blood Glucose Coronavirus (PCR) 04/20/21 04/20/21 04/20/21 05:28 08:43 16:21 WBC MCHC RDW Lymph % (Auto) Lymph # (Auto) Seg Neutrophils % Seg Neutrophils # D-Dimer ABG pH POC ABG pO2 ABG pO2 ABG O2 Saturation ABG Oxyhemoglobin ABG Sodium ABG Glucose Oxyhemoglobin Carboxyhemoglobin Sodium Potassium Chloride Carbon Dioxide BUN 27 H Creatinine Glucose 192 H POC Glucose 173 H 253 H Hemoglobin A1c Ferritin AST Lactate Dehydrogenase C-Reactive Protein Total Protein Albumin 3.0 L Arterial Blood Glucose Coronavirus (PCR) 04/21/21 04/21/21 04/21/21 07:58 12:05 16:08 WBC MCHC RDW Lymph % (Auto) Lymph # (Auto) Seg Neutrophils % Seg Neutrophils # D-Dimer ABG pH POC ABG pO2 ABG pO2 ABG O2 Saturation ABG Oxyhemoglobin ABG Sodium ABG Glucose Oxyhemoglobin Carboxyhemoglobin Sodium Potassium Chloride Carbon Dioxide BUN Creatinine Glucose POC Glucose 140 H 252 H 214 H Hemoglobin A1c Ferritin AST Lactate Dehydrogenase C-Reactive Protein Total Protein Albumin Arterial Blood Glucose Coronavirus (PCR) 04/21/21 04/22/21 04/22/21 21:42 08:37 12:01 WBC MCHC RDW Lymph % (Auto) Lymph # (Auto) Seg Neutrophils % Seg Neutrophils # D-Dimer ABG pH 7.457 H POC ABG pO2 49.4 L ABG pO2 ABG O2 Saturation ABG Oxyhemoglobin 85.6 L ABG Sodium ABG Glucose 121 H Oxyhemoglobin Carboxyhemoglobin 0.3 L Sodium Potassium Chloride Carbon Dioxide BUN Creatinine Glucose POC Glucose 162 H 227 H Hemoglobin A1c Ferritin AST Lactate Dehydrogenase C-Reactive Protein Total Protein Albumin Arterial Blood Glucose 121 H Coronavirus (PCR) 04/22/21 04/22/21 04/23/21 16:26 22:23 04:52 WBC MCHC RDW 15.7 H Lymph % (Auto) Lymph # (Auto) Seg Neutrophils % Seg Neutrophils # D-Dimer ABG pH POC ABG pO2 ABG pO2 ABG O2 Saturation ABG Oxyhemoglobin ABG Sodium ABG Glucose Oxyhemoglobin Carboxyhemoglobin Sodium Potassium Chloride Carbon Dioxide BUN Creatinine Glucose POC Glucose 200 H 136 H Hemoglobin A1c Ferritin AST Lactate Dehydrogenase C-Reactive Protein Total Protein Albumin Arterial Blood Glucose Coronavirus (PCR) 04/23/21 04/23/21 04/23/21 04:52 12:06 17:41 WBC MCHC RDW Lymph % (Auto) Lymph # (Auto) Seg Neutrophils % Seg Neutrophils # D-Dimer ABG pH POC ABG pO2 ABG pO2 ABG O2 Saturation ABG Oxyhemoglobin ABG Sodium ABG Glucose Oxyhemoglobin Carboxyhemoglobin Sodium 136 L Potassium Chloride 97.7 L Carbon Dioxide BUN 23 H Creatinine Glucose 101 H POC Glucose 202 H 169 H Hemoglobin A1c Ferritin AST 46 H Lactate Dehydrogenase C-Reactive Protein Total Protein Albumin 3.3 L Arterial Blood Glucose Coronavirus (PCR) 04/23/21 04/24/21 04/24/21 23:08 05:17 08:38 WBC MCHC RDW Lymph % (Auto) Lymph # (Auto) Seg Neutrophils % Seg Neutrophils # D-Dimer ABG pH POC ABG pO2 ABG pO2 ABG O2 Saturation ABG Oxyhemoglobin ABG Sodium ABG Glucose Oxyhemoglobin Carboxyhemoglobin Sodium Potassium Chloride Carbon Dioxide BUN Creatinine Glucose POC Glucose 111 H 108 H 126 H Hemoglobin A1c Ferritin AST Lactate Dehydrogenase C-Reactive Protein Total Protein Albumin Arterial Blood Glucose Coronavirus (PCR) 04/24/21 04/24/21 04/24/21 11:54 17:57 21:23 WBC MCHC RDW Lymph % (Auto) Lymph # (Auto) Seg Neutrophils % Seg Neutrophils # D-Dimer ABG pH POC ABG pO2 ABG pO2 ABG O2 Saturation ABG Oxyhemoglobin ABG Sodium ABG Glucose Oxyhemoglobin Carboxyhemoglobin Sodium Potassium Chloride Carbon Dioxide BUN Creatinine Glucose POC Glucose 147 H 177 H 138 H Hemoglobin A1c Ferritin AST Lactate Dehydrogenase C-Reactive Protein Total Protein Albumin Arterial Blood Glucose Coronavirus (PCR) 04/25/21 04/25/21 04/25/21 07:06 11:23 15:43 WBC MCHC RDW Lymph % (Auto) Lymph # (Auto) Seg Neutrophils % Seg Neutrophils # D-Dimer ABG pH POC ABG pO2 ABG pO2 ABG O2 Saturation ABG Oxyhemoglobin ABG Sodium ABG Glucose Oxyhemoglobin Carboxyhemoglobin Sodium Potassium Chloride Carbon Dioxide BUN Creatinine Glucose POC Glucose 147 H 169 H 227 H Hemoglobin A1c Ferritin AST Lactate Dehydrogenase C-Reactive Protein Total Protein Albumin Arterial Blood Glucose Coronavirus (PCR) 04/25/21 04/26/21 04/26/21 21:22 02:45 05:15 WBC MCHC RDW Lymph % (Auto) Lymph # (Auto) Seg Neutrophils % Seg Neutrophils # D-Dimer ABG pH POC ABG pO2 70.7 L ABG pO2 ABG O2 Saturation ABG Oxyhemoglobin 93.0 L ABG Sodium 132.7 L ABG Glucose 115 H Oxyhemoglobin Carboxyhemoglobin Sodium Potassium Chloride 95.8 L Carbon Dioxide 32 H BUN 20 H Creatinine Glucose 102 H POC Glucose 196 H Hemoglobin A1c Ferritin AST Lactate Dehydrogenase C-Reactive Protein Total Protein Albumin Arterial Blood Glucose 115 H Coronavirus (PCR) 04/26/21 04/26/21 04/26/21 11:49 16:09 21:07 WBC MCHC RDW Lymph % (Auto) Lymph # (Auto) Seg Neutrophils % Seg Neutrophils # D-Dimer ABG pH POC ABG pO2 ABG pO2 ABG O2 Saturation ABG Oxyhemoglobin ABG Sodium ABG Glucose Oxyhemoglobin Carboxyhemoglobin Sodium Potassium Chloride Carbon Dioxide BUN Creatinine Glucose POC Glucose 114 H 188 H 136 H Hemoglobin A1c Ferritin AST Lactate Dehydrogenase C-Reactive Protein Total Protein Albumin Arterial Blood Glucose Coronavirus (PCR) 04/27/21 04/27/21 04/28/21 17:34 22:12 08:26 WBC MCHC RDW Lymph % (Auto) Lymph # (Auto) Seg Neutrophils % Seg Neutrophils # D-Dimer ABG pH POC ABG pO2 ABG pO2 ABG O2 Saturation ABG Oxyhemoglobin ABG Sodium ABG Glucose Oxyhemoglobin Carboxyhemoglobin Sodium Potassium Chloride Carbon Dioxide BUN Creatinine Glucose POC Glucose 128 H 159 H 69 L Hemoglobin A1c Ferritin AST Lactate Dehydrogenase C-Reactive Protein Total Protein Albumin Arterial Blood Glucose Coronavirus (PCR) 04/28/21 04/28/21 04/29/21 12:22 21:11 06:05 WBC MCHC RDW Lymph % (Auto) Lymph # (Auto) Seg Neutrophils % Seg Neutrophils # D-Dimer ABG pH POC ABG pO2 ABG pO2 ABG O2 Saturation ABG Oxyhemoglobin ABG Sodium ABG Glucose Oxyhemoglobin Carboxyhemoglobin Sodium 132 L Potassium Chloride 94.4 L Carbon Dioxide BUN Creatinine 0.2 L D Glucose 140 H POC Glucose 141 H 171 H Hemoglobin A1c Ferritin AST Lactate Dehydrogenase C-Reactive Protein Total Protein Albumin Arterial Blood Glucose Coronavirus (PCR) 04/29/21 04/29/21 04/29/21 06:05 07:24 11:36 WBC MCHC 35 H RDW 15.9 H Lymph % (Auto) Lymph # (Auto) Seg Neutrophils % Seg Neutrophils # D-Dimer ABG pH POC ABG pO2 ABG pO2 ABG O2 Saturation ABG Oxyhemoglobin ABG Sodium ABG Glucose Oxyhemoglobin Carboxyhemoglobin Sodium Potassium Chloride Carbon Dioxide BUN Creatinine Glucose POC Glucose 141 H 220 H Hemoglobin A1c Ferritin AST Lactate Dehydrogenase C-Reactive Protein Total Protein Albumin Arterial Blood Glucose Coronavirus (PCR) 04/29/21 04/29/21 04/29/21 14:23 15:30 17:06 WBC MCHC RDW Lymph % (Auto) Lymph # (Auto) Seg Neutrophils % Seg Neutrophils # D-Dimer ABG pH POC ABG pO2 ABG pO2 52.6 L ABG O2 Saturation 86.4 L ABG Oxyhemoglobin ABG Sodium ABG Glucose Oxyhemoglobin 84.6 L Carboxyhemoglobin Sodium Potassium Chloride Carbon Dioxide BUN Creatinine Glucose POC Glucose 173 H 158 H Hemoglobin A1c Ferritin AST Lactate Dehydrogenase C-Reactive Protein Total Protein Albumin Arterial Blood Glucose Coronavirus (PCR) 04/29/21 04/30/21 21:27 07:16 WBC MCHC RDW Lymph % (Auto) Lymph # (Auto) Seg Neutrophils % Seg Neutrophils # D-Dimer ABG pH POC ABG pO2 ABG pO2 ABG O2 Saturation ABG Oxyhemoglobin ABG Sodium ABG Glucose Oxyhemoglobin Carboxyhemoglobin Sodium Potassium Chloride Carbon Dioxide BUN Creatinine Glucose POC Glucose 244 H 175 H Hemoglobin A1c Ferritin AST Lactate Dehydrogenase C-Reactive Protein Total Protein Albumin Arterial Blood Glucose Coronavirus (PCR)
[2021-04-30 09:15] LABS: BUN/Creatinine Ratio 85
[2021-04-30] MEDS: ASCORBIC ACID 500 MG TAB PO SCH (09:19)
[2021-04-30] MEDS: CHOLECALCIFEROL (VIT D3) 1000 UNIT (25 mcg) TAB PO SCH (09:19)
[2021-04-30] MEDS: ZINC SULFATE 220 MG CAP PO SCH ×2 (09:19→21:41)
[2021-04-30] MEDS: FAMOTIDINE 20 MG TAB PO SCH ×2 (09:19→21:41)
[2021-04-30] MEDS: INSULIN LISPRO 100 UNIT/ML SUB-Q SCH ×4 (09:20→22:22)
[2021-04-30] MEDS: HEPARIN 5,000 UNIT/1 ML VIAL SUB-Q SCH ×2 (09:20→21:42)
[2021-04-30] MEDS ORDERED: MAGNESIUM SULFATE 1 GM in SODIUM CHLORIDE 0.9% 50 ML IV PRN (09:25)
[2021-04-30] MEDS ORDERED: SODIUM PHOSPHATE 15 MMOL in SODIUM CHLORIDE 0.9% 250ML 150 ML IV PRN (09:25)
[2021-04-30] MEDS ORDERED: SODIUM PHOSPHATE 30 MMOL in SODIUM CHLORIDE 0.9% 500 ML 250 ML IV PRN (09:25)
[2021-04-30] MEDS ORDERED: MAGNESIUM SULFATE 2 GM/50 ML BAG IV PRN (09:25)
[2021-04-30] MEDS ORDERED: POTASSIUM CHLORIDE 20 MEQ 20 MEQ/100 ML BAG IV PRN ×2 (09:25)
[2021-04-30] MEDS ORDERED: MAGNESIUM SULFATE 4 GM/100 ML BAG IV PRN (09:25)
[2021-04-30] MEDS: DOCUSATE SODIUM 100 MG CAP PO SCH ×2 (09:28→21:41)
[2021-04-30 09:46] LABS: Hematocrit 40.3 % (30.3-42.9); Hemoglobin 13.3 gm/dl (10.1-14.3); Mean Corpuscular HGB Conc 33 % (30-34); Mean Corpuscular Volume 88 fl (79-97); Platelet Count 251 K/mm3 (140-440); Red Blood Count 4.57 M/mm3 (3.65-5.03); Red Cell Distribution Width 16.1 % (13.2-15.2)
[2021-04-30] MEDS ORDERED: MAGNESIUM SULFATE 2 GM/50 ML BAG IV ONE (10:00)
--- NOTE | 2021-04-30 11:41 | Progress Note ---
<ATTILA ORTIZ Seun - Last Filed: 04/30/21 11:41> Assessment and Plan Assessment and plan: NEURO- acute pain PRN tylenol dex for comfort PRN pain meds [place] speaking right eye- viral conjunctivitis vs subconjunctival hemorrhage continue to monitor family updated on plan of care CV- ST SR-ST off pressors Resp- acute hypoxic resp failure due to covid19 bipap tolerating airvo this AM; taking sips of clears only see RT notes remains high risk for intubation ABG noted albuterol PRN xray chest ordered for AM GI- nap nutrition consult for TPN has had poor intake given bipap pt has a PICC aspiration precautions bowel reg pepcid - volume overload; hypoMg net neg 165 ml over 24 hours lasix 20 mg IV today Mg replaced vit D replacement AM labs ordered Heme- coagulopahty of covid VTE SQH trend WBC hgb goal over 7 no bleeding on exam [id number] pna zinc/vitC methylpred ID following completed actemra and remdesovir afebrile trend temp and WBC curve follow culture data Endo- hyperglycemia; obesity glargine HS SSI AC/HS 50 YO Female with GERD, Obesity, HLD presents to ED for evaluation. Patient reports "I cannot breathe". Patient states that she has experienced subjective fever, shortness of breath, malaise, body aches, dry cough, and shortness of breath over the past 1 week with progressively worsening symptoms over the same timeframe. EMS was notified and upon arrival the patient was found to be in distress and subsequent transported to [facility] for further care and evaluation of the aforementioned symptoms. The patient was seen and evaluated in the emergency department. All lab and imaging studies reviewed. Patient found to have a pulse oximetry of 86% with exertion on room air which is consistent with acute hypoxemic respiratory failure. Patient with chest x-ray which revealed bilateral pneumonia. Patient admitted to medical floor and initiated him on pneumonia protocol as well as coronavirus protocol. Patient knowledges fever but denies chills, chest pain, palpitation, skin rash, recent ill contacts, or known exposure to COVID-19. Prior admission on 01/21/2017 reviewed. All medication listed at time of admission has been reconciled. Patient is unvaccinated for coronavirus infection. CXR: Bilateral Pneumonia 04/17: Patient seen and examined, still uncomfortable with Hypoxic respiratory failure and on oxygen, will continue to steroids therapy, start patient on Remdesivir, ID consulted, Pulmonary consult placed. 04/18: Patient seen and examined, she is currently being changed to High flow NC due to worsening HYPOXIA, will transfer to IMCU, Pulmonary and ID following. Will also give a dose of Lasix today. Monitor Inflammatory markers. 04/19: Patient seen and examined still on high flow due to hypoxia. Appears a bit more comfortable today than yesterday. Cough has decreased in frequency. We will continue high dose Dexameathasone to complete 10 days. continue on Remdesivir 200 mg IV q day x 1 followed by 100 mg IV q day x 4 days -Obtain q48-72h inflammatory markers - ferritin, Ddimer, CRP, LDH Will also give lasix daily for the next 3 days and monitor renal function. Family updated. Continue prone positioning as tolerated 04/20: Patient has some desaturation episodes yesterday was placed on BiPAP. Discussed with ICU team for bed availability for patient to be transferred up. Continue prone position as tolerated. 04/21: Patient remains with profound hypoxia secondary to COVID pneumonia. -Continue steroids -Continue remedesir -S/P Actmera 04/22: Patient remains on steroids and remdesivir. ABG shows persistent hypoxia. We will continue current management additional trial of Lasix for the next few days to see if any improvement. Monitor inflammatory markers as needed. Prognosis is guarded remains on high flow 04/23; patient was treated with remdesivir and Actemra. Continue steroid. Patient's prognosis is guarded. 04/24; patient is on steroid. Patient is currently on BiPAP. Prognosis is guarded. Pulmonary is following. Patient was given Lasix and Ativan. 04/25; continue steroid. Patient was on 40 L of high flow oxygen with saturation was 88%. Pulmonary is following. Prognosis is guarded. Patient was given lasix and ativan. 04/26; patient is on BiPAP and Precedex. Prognosis is guarded. 04/27; patient is on BiPAP and Precedex. Patient will finish steroid today and will start on Solu-Medrol tomorrow. Prognosis is guarded. Blood pressure is better today. Hold Lasix. 04/28 patient is on 100 Fio2 via BIPAP. moderately dyspneic, pulmonary note reviewed, lab results reviewed 04/29 no acute events 04/30 no acute events overnight The high probability of a clinically significant, sudden or life threatening deterioration of the [Pulmonary] system(s) required my full and direct attention, intervention and personal management. The aggregate critical care time was [60] minutes. This time is in addition to time spent performing reported procedures but includes the following: [x] Data Review and interpretation [x] Patient assessment and monitoring of vital signs [x] Documentation [x] Medication orders and management Disposition Plan: icu Total Time Spent with Patient (Minutes): 60 History Interval history: no acute events Hospitalist Physical - Constitutional Vitals: Temp Pulse Resp BP Pulse Ox 98.0 F 66 19 97/51 85 04/30/21 07:21 04/30/21 11:30 04/30/21 11:30 04/30/21 11:30 04/30/21 11:30 General appearance: Present: mild distress - EENT Eyes: Present: EOM intact ENT: clear oral mucosa - Neck Neck: Present: supple, normal ROM - Respiratory Respiratory effort: normal - Cardiovascular Rhythm: regular Heart Sounds: Present: S1 & S2 Peripheral Pulses: within normal limits - Abdominal General gastrointestinal: soft - Integumentary Integumentary: Present: clear, warm, dry - Psychiatric Psychiatric: appropriate mood/affect - Allied Health Allied health notes reviewed: nursing, RT, social work, case management Results - Labs CBC & Chem 7: 04/30/21 08:00 04/30/21 08:00 Labs: Laboratory Last Values WBC 10.2 K/mm3 (4.5-11.0) 04/30/21 08:00 RBC 4.57 M/mm3 (3.65-5.03) 04/30/21 08:00 Hgb 13.3 gm/dl (10.1-14.3) 04/30/21 08:00 Hct 40.3 % (30.3-42.9) 04/30/21 08:00 MCV 88 fl (79-97) 04/30/21 08:00 MCH 29 pg (28-32) 04/30/21 08:00 MCHC 33 % (30-34) 04/30/21 08:00 RDW 16.1 % (13.2-15.2) H 04/30/21 08:00 Plt Count 251 K/mm3 (140-440) 04/30/21 08:00 Lymph % (Auto) 7.7 % (13.4-35.0) L 04/17/21 03:50 [place] % (Auto) 2.5 % (0.0-7.3) 04/17/21 03:50 Eos % (Auto) 0.0 % (0.0-4.3) 04/17/21 03:50 Baso % (Auto) 0.0 % (0.0-1.8) 04/17/21 03:50 Lymph # (Auto) 0.6 K/mm3 (1.2-5.4) L 04/17/21 03:50 [place] # (Auto) 0.2 K/mm3 (0.0-0.8) 04/17/21 03:50 Eos # (Auto) 0.0 K/mm3 (0.0-0.4) 04/17/21 03:50 Baso # (Auto) 0.0 K/mm3 (0.0-0.1) 04/17/21 03:50 Seg Neutrophils % 89.8 % (40.0-70.0) H 04/17/21 03:50 Seg Neutrophils # 6.7 K/mm3 (1.8-7.7) 04/17/21 03:50 D-Dimer 1796.87 ng/mlDDU (0-234) H 04/30/21 08:00 ABG pH 7.407 pH Units (7.350-7.450) 04/29/21 14:23 POC ABG pCO2 45.5 mmHg (32.0-48.0) 04/26/21 02:45 ABG pCO2 42.2 mm Hg 04/29/21 14:23 POC ABG pO2 70.7 mmHg (83-108) L 04/26/21 02:45 ABG pO2 52.6 mm Hg (80.0-90.0) L 04/29/21 14:23 POC ABG HCO3 28.7 04/26/21 02:45 ABG HCO3 26.0 mmol/L (20.0-26.0) 04/29/21 14:23 ABG O2 Saturation 86.4 % (95.0-99.0) L 04/29/21 14:23 ABG O2 Content 18.1 (0.0-44) 04/29/21 14:23 POC ABG Base Excess 3.4 04/26/21 02:45 ABG Base Excess 1.1 mmol/L (-2.0-3.0) 04/29/21 14:23 ABG Hemoglobin 15.3 gm/dl (12.0-16.0) 04/29/21 14:23 ABG Oxyhemoglobin 93.0 (94-98) L 04/26/21 02:45 ABG Carboxyhemoglobin 1.5 % (0.0-5.0) 04/29/21 14:23 ABG Methemoglobin 0.6 % (0.0-1.5) 04/29/21 14:23 ABG Sodium 132.7 mmol/L (136.0-145.0) L 04/26/21 02:45 ABG Potassium 3.8 mmol/L (3.40-4.50) 04/26/21 02:45 ABG Chloride 98.0 mmol/L (98-107) 04/26/21 02:45 ABG Glucose 115 mg/dL (65-95) H 04/26/21 02:45 Oxyhemoglobin 84.6 % (95.0-99.0) L 04/29/21 14:23 Carboxyhemoglobin 0.7 (0.5-1.5) 04/26/21 02:45 FiO2 100 % 04/29/21 14:23 FiO2 % 100.0 04/26/21 02:45 Sodium 135 mmol/L (137-145) L 04/30/21 08:00 Potassium 4.3 mmol/L (3.6-5.0) 04/30/21 08:00 Chloride 96.3 mmol/L (98-107) L 04/30/21 08:00 Carbon Dioxide 29 mmol/L (22-30) 04/30/21 08:00 Anion Gap 14 mmol/L 04/30/21 08:00 BUN 17 mg/dL (7-17) 04/30/21 08:00 Creatinine 0.2 mg/dL (0.6-1.2) L 04/30/21 08:00 Estimated GFR > 60 ml/min 04/30/21 08:00 BUN/Creatinine Ratio 85 % 04/30/21 08:00 Glucose 153 mg/dL (65-100) H 04/30/21 08:00 POC Glucose 183 mg/dL (70-105) H 04/30/21 11:03 Hemoglobin A1c 8.5 % (4-6) H 04/18/21 07:36 Calcium 9.2 mg/dL (8.4-10.2) 04/30/21 08:00 Phosphorus 2.90 mg/dL (2.5-4.5) D 04/30/21 08:00 Magnesium 1.80 mg/dL (1.7-2.3) 04/30/21 08:00 Ferritin 392.0 ng/mL (10.0-200.0) H 04/17/21 08:26 Total Bilirubin 0.30 mg/dL (0.1-1.2) 04/30/21 08:00 AST 41 units/L (5-40) H 04/30/21 08:00 ALT 76 units/L (7-56) H 04/30/21 08:00 Alkaline Phosphatase 160 units/L (35-129) H 04/30/21 08:00 Lactate Dehydrogenase 522 units/L (91-180) H 04/30/21 08:00 C-Reactive Protein 0.50 mg/dL (0.00-1.30) 04/30/21 08:00 Total Protein 6.1 g/dL (6.3-8.2) L 04/30/21 08:00 Albumin 3.1 g/dL (3.9-5) L 04/30/21 08:00 Albumin/Globulin Ratio 1.0 % 04/30/21 08:00 Procalcitonin < 0.05 ng/mL (<0.15) 04/17/21 08:26 Arterial Blood Glucose 115 mg/dL (65-95) H 04/26/21 02:45 Arterial Blood Ionized Calcium 4.6 mg/dL (4.6-5.3) 04/26/21 02:45 Coronavirus (PCR) Positive (Negative) A 04/17/21 Unknown Amos/IV: Voiding Method External Female Catheter Active Medications - Current Medications Current Medications: Generic Name Dose Route Start Last Admin Trade Name Freq PRN Reason Stop Dose Admin Acetaminophen 650 mg 04/16/21 14:00 04/27/21 18:58 Acetaminophen 325 Mg Tab PO 650 mg Q4H PRN Administration Pain MILD(1-3)/Fever >100.5/[place] Albuterol 2.5 mg 04/16/21 13:39 04/21/21 20:39 Albuterol 2.5 Mg/3 Ml Nebu IH 2.5 mg Q4HRT PRN Administration Shortness Of Breath Artificial Tears 2 drops 04/28/21 18:15 04/28/21 19:07 Hypromellose 0.5% Ophth Soln 15 Ml OU 2 drops Q4H PRN Administration Dry Eye(s) Ascorbic Acid 500 mg 04/24/21 10:00 04/30/21 09:19 Ascorbic Acid 500 Mg Tab PO 500 mg QDAY TUTU Administration Cholecalciferol 1,000 unit 04/17/21 10:00 04/30/21 09:19 Cholecalciferol (Vit D3) 1000 Unit (25 Mcg) Tab PO 1,000 unit QDAY TUTU Administration Dextrose 50 ml 04/18/21 07:30 04/28/21 09:59 Dextrose 50% In Water (25gm) 50 Ml Syringe IV 50 ml Q30MIN PRN Administration Hypoglycemia Protocol Docusate Sodium 100 mg 04/30/21 10:00 04/30/21 09:28 Docusate Sodium 100 Mg Cap PO Not Given BID TUTU Famotidine 20 mg 04/16/21 22:00 04/30/21 09:19 Famotidine 20 Mg Tab PO 20 mg BID TUTU Administration Heparin Sodium (Porcine) 5,000 unit 04/16/21 22:00 04/30/21 09:20 Heparin 5,000 Unit/1 Ml Vial SUB-Q 5,000 unit Q12HR TUTU Administration Hydromorphone HCl 0.5 mg 04/16/21 14:00 04/30/21 07:40 Hydromorphone 1 Mg/1 Ml Inj IV 0.5 mg Q12H PRN Administration Pain , Severe (7-10) Dexmedetomidine HCl 400 mcg/ 104 mls @ 3.604 mls/hr 04/26/21 04:00 04/30/21 07:38 Sodium Chloride IV 0.3 mcg/kg/hr TITRATE TUTU 5.405 mls/hr Titration Protocol 0.2 MCG/KG/HR Amino Acids 2,000 mls @ 84 mls/hr 04/30/21 20:00 Clinimix 4.25%-10% Solution IV 05/01/21 19:59 ONCE TUTU Potassium Chloride 20 meq in 100 mls @ 100 mls/hr 04/30/21 09:25 Kcl 20meq/100ml IV Q1H PRN Potassium 3-3.5 mEq/L Potassium Chloride 20 meq in 100 mls @ 100 mls/hr 04/30/21 09:25 Kcl 20meq/100ml IV Q1H PRN Potassium 2.6-2.9 mEq/L Magnesium Sulfate 1 gm/ Sodium 52 mls @ 26 mls/hr 04/30/21 09:25 Chloride IV Q2H PRN Magnesium level 1.8-2 mg/dL Magnesium Sulfate 2 gm in 50 mls @ 25 mls/hr 04/30/21 09:25 Magnesium Sulfate 2gm/50ml IV Q2H PRN Magnesium level 1.5-1.7 mg/dL Magnesium Sulfate 4 gm in 100 mls @ 25 mls/hr 04/30/21 09:25 Magnesium Sulfate 4gm/100ml IV Q4H PRN Magnesium level < 1.4 mg/dL Sodium Phosphate 15 mmol/ 155 mls @ 40 mls/hr 04/30/21 09:25 Sodium Chloride IV Q4H PRN Phosphorous level 1.2-2.5 mg/d Sodium Phosphate 30 mmol/ 260 mls @ 40 mls/hr 04/30/21 09:25 Sodium Chloride IV Q6H PRN Phosphorous level < 1.2 mg/dL Magnesium Sulfate 2 gm in 50 mls @ 25 mls/hr 04/30/21 10:00 04/30/21 10:45 Magnesium Sulfate 2gm/50ml IV 04/30/21 11:59 25 mls/hr ONCE ONE Administration Insulin Glargine 5 units 04/24/21 22:00 04/29/21 22:31 Insulin Glargine 100 Units/Ml SUB-Q 5 units QHS TUTU Administration Insulin Human Lispro 0 unit 04/18/21 08:00 04/30/21 09:20 Insulin Lispro 100 Unit/Ml SUB-Q 3 unit ACHS TUTU Administration Protocol Methylprednisolone Sodium Succinate 40 mg 04/28/21 14:00 04/30/21 07:26 Methylprednisolone Sod Succinate 40 Mg/1 Ml Inj IV 40 mg Q8HR TUTU Administration Ondansetron HCl 4 mg 04/16/21 14:00 04/27/21 14:33 Ondansetron 4 Mg/2 Ml Inj IV 4 mg Q8H PRN Administration Nausea And Vomiting Sodium Chloride 10 ml 04/16/21 22:00 04/30/21 09:31 Sodium Chloride 0.9% 10 Ml Flush Syringe IV 10 ml BID TUTU Administration Sodium Chloride 10 ml 04/16/21 13:39 Sodium Chloride 0.9% 10 Ml Flush Syringe IV PRN PRN LINE FLUSH Zinc Sulfate 220 mg 04/16/21 22:00 04/30/21 09:19 Zinc Sulfate 220 Mg Cap PO 220 mg BID TUTU Administration Nutrition/Malnutrition Assess - Dietary Evaluation Nutrition/Malnutrition Findings: Nutrition Notes Start: 04/23/21 07: 41 Freq: Status: Active Protocol: Document 04/29/21 14:10 TITUS (Rec: 04/29/21 14:14 TITUS [id number]) Nutrition Notes Initial or Follow up Reassessment Current Diagnosis Respiratory Failure Other Pertinent Diagnosis COVID-19 pneu Current Diet Cardiac/Consistent CHO Labs/Tests Na 132 Pertinent Medications Solumedrol Height 5 ft Weight 68.4 kg [place] Body Weight (kg) 45.45 BMI 29.4 Weight change and time frame 2# wt loss x 3 days Weight Status Overweight Subjective/Other Information Spoke with pt's RN via phone at 13:56. Pt consumed 100% of breakfast this am. She remains on BiPap support. PICC line placed yesterday. Burn Absent Trauma Absent #2 Nutrition Diagnosis Malnutrition Diagnosis Progress(for reassessment Continues documentation) #1 Nutrition Diagnosis Inadequate oral intake As Evidenced by Signs and Symptoms pt consumed 100% breakfast this am Diagnosis Progress(for reassessment Improved documentation) Is patient on ventilator? No Is Patient Ambulatory and/or Out of Bed No REE-([facility]-confined to bed) [phone] Additional Notes Pro needs 1.2-2g/k-137g/ day Fluid needs 1ml/kcal Nutrition Intervention Change Diet Order: Continue current diet as tolerated Goal #1 PO tolerance Goal #2 PO intakes to meet nutrient needs as best possible Follow-Up By: 05/02/21 Additional Comments F/U: intakes, resp status - Attestation Statement I have reviewed and agreed w/ Malnutrition eval & tx plan: Yes <JOSE CERVANTES - Last Filed: 05/01/21 06:59> Assessment and Plan Assessment and plan: I saw and evaluated the patient. I agree with the findings and the plan of care as documented in the Nurse Practitioner's~note, with the following corrections and additions. Hospitalist Physical - Constitutional Vitals: Temp Pulse Resp BP Pulse Ox 98.8 F 59 L 23 108/52 98 05/01/21 03:17 05/01/21 06:00 05/01/21 06:00 05/01/21 06:00 05/01/21 06:00 Results - Labs CBC & Chem 7: 05/01/21 05:39 05/01/21 05:39 Labs: Laboratory Last Values WBC 10.5 K/mm3 (4.5-11.0) 05/01/21 05:39 RBC 4.62 M/mm3 (3.65-5.03) 05/01/21 05:39 Hgb 13.5 gm/dl (10.1-14.3) 05/01/21 05:39 Hct 41.1 % (30.3-42.9) 05/01/21 05:39 MCV 89 fl (79-97) 05/01/21 05:39 MCH 29 pg (28-32) 05/01/21 05:39 MCHC 33 % (30-34) 05/01/21 05:39 RDW 16.0 % (13.2-15.2) H 05/01/21 05:39 Plt Count 231 K/mm3 (140-440) 05/01/21 05:39 Lymph % (Auto) 7.7 % (13.4-35.0) L 04/17/21 03:50 [place] % (Auto) 2.5 % (0.0-7.3) 04/17/21 03:50 Eos % (Auto) 0.0 % (0.0-4.3) 04/17/21 03:50 Baso % (Auto) 0.0 % (0.0-1.8) 04/17/21 03:50 Lymph # (Auto) 0.6 K/mm3 (1.2-5.4) L 04/17/21 03:50 [place] # (Auto) 0.2 K/mm3 (0.0-0.8) 04/17/21 03:50 Eos # (Auto) 0.0 K/mm3 (0.0-0.4) 04/17/21 03:50 Baso # (Auto) 0.0 K/mm3 (0.0-0.1) 04/17/21 03:50 Seg Neutrophils % 89.8 % (40.0-70.0) H 04/17/21 03:50 Seg Neutrophils # 6.7 K/mm3 (1.8-7.7) 04/17/21 03:50 D-Dimer 3984.95 ng/mlDDU (0-234) H 05/01/21 05:39 ABG pH 7.407 pH Units (7.350-7.450) 04/29/21 14:23 POC ABG pCO2 45.5 mmHg (32.0-48.0) 04/26/21 02:45 ABG pCO2 42.2 mm Hg 04/29/21 14:23 POC ABG pO2 70.7 mmHg (83-108) L 04/26/21 02:45 ABG pO2 52.6 mm Hg (80.0-90.0) L 04/29/21 14:23 POC ABG HCO3 28.7 04/26/21 02:45 ABG HCO3 26.0 mmol/L (20.0-26.0) 04/29/21 14:23 ABG O2 Saturation 86.4 % (95.0-99.0) L 04/29/21 14:23 ABG O2 Content 18.1 (0.0-44) 04/29/21 14:23 POC ABG Base Excess 3.4 04/26/21 02:45 ABG Base Excess 1.1 mmol/L (-2.0-3.0) 04/29/21 14:23 ABG Hemoglobin 15.3 gm/dl (12.0-16.0) 04/29/21 14:23 ABG Oxyhemoglobin 93.0 (94-98) L 04/26/21 02:45 ABG Carboxyhemoglobin 1.5 % (0.0-5.0) 04/29/21 14:23 ABG Methemoglobin 0.6 % (0.0-1.5) 04/29/21 14:23 ABG Sodium 132.7 mmol/L (136.0-145.0) L 04/26/21 02:45 ABG Potassium 3.8 mmol/L (3.40-4.50) 04/26/21 02:45 ABG Chloride 98.0 mmol/L (98-107) 04/26/21 02:45 ABG Glucose 115 mg/dL (65-95) H 04/26/21 02:45 Oxyhemoglobin 84.6 % (95.0-99.0) L 04/29/21 14:23 Carboxyhemoglobin 0.7 (0.5-1.5) 04/26/21 02:45 FiO2 100 % 04/29/21 14:23 FiO2 % 100.0 04/26/21 02:45 Sodium 133 mmol/L (137-145) L 05/01/21 05:39 Potassium 4.3 mmol/L (3.6-5.0) 04/30/21 08:00 Chloride 92.1 mmol/L (98-107) L 05/01/21 05:39 Carbon Dioxide 30 mmol/L (22-30) 05/01/21 05:39 Anion Gap 16 mmol/L 05/01/21 05:39 BUN 24 mg/dL (7-17) H 05/01/21 05:39 Creatinine 0.2 mg/dL (0.6-1.2) L 04/30/21 08:00 Estimated GFR > 60 ml/min 04/30/21 08:00 BUN/Creatinine Ratio 85 % 04/30/21 08:00 Glucose 269 mg/dL (65-100) H 05/01/21 05:39 POC Glucose 208 mg/dL (70-105) H 04/30/21 22:17 Hemoglobin A1c 8.5 % (4-6) H 04/18/21 07:36 Calcium 9.3 mg/dL (8.4-10.2) 05/01/21 05:39 Phosphorus 3.40 mg/dL (2.5-4.5) 05/01/21 05:39 Magnesium 2.10 mg/dL (1.7-2.3) 05/01/21 05:39 Ferritin 392.0 ng/mL (10.0-200.0) H 04/17/21 08:26 Total Bilirubin 0.30 mg/dL (0.1-1.2) 05/01/21 05:39 AST 33 units/L (5-40) 05/01/21 05:39 ALT 66 units/L (7-56) H 05/01/21 05:39 Alkaline Phosphatase 142 units/L (35-129) H 05/01/21 05:39 Lactate Dehydrogenase 522 units/L (91-180) H 04/30/21 08:00 C-Reactive Protein 0.50 mg/dL (0.00-1.30) 04/30/21 08:00 Total Protein 6.3 g/dL (6.3-8.2) 05/01/21 05:39 Albumin 3.2 g/dL (3.9-5) L 05/01/21 05:39 Albumin/Globulin Ratio 1.0 % 05/01/21 05:39 Procalcitonin < 0.05 ng/mL (<0.15) 04/17/21 08:26 Arterial Blood Glucose 115 mg/dL (65-95) H 04/26/21 02:45 Arterial Blood Ionized Calcium 4.6 mg/dL (4.6-5.3) 04/26/21 02:45 Coronavirus (PCR) Positive (Negative) A 04/17/21 Unknown Amos/IV: Voiding Method External Female Catheter Active Medications - Current Medications Current Medications: Generic Name Dose Route Start Last Admin Trade Name Freq PRN Reason Stop Dose Admin Acetaminophen 650 mg 04/16/21 14:00 04/27/21 18:58 Acetaminophen 325 Mg Tab PO 650 mg Q4H PRN Administration Pain MILD(1-3)/Fever >100.5/[place] Albuterol 2.5 mg 04/16/21 13:39 04/21/21 20:39 Albuterol 2.5 Mg/3 Ml Nebu IH 2.5 mg Q4HRT PRN Administration Shortness Of Breath Artificial Tears 2 drops 04/28/21 18:15 04/28/21 19:07 Hypromellose 0.5% Ophth Soln 15 Ml OU 2 drops Q4H PRN Administration Dry Eye(s) Ascorbic Acid 500 mg 04/24/21 10:00 04/30/21 09:19 Ascorbic Acid 500 Mg Tab PO 500 mg QDAY TUTU Administration Cholecalciferol 1,000 unit 04/17/21 10:00 04/30/21 09:19 Cholecalciferol (Vit D3) 1000 Unit (25 Mcg) Tab PO 1,000 unit QDAY TUTU Administration Dextrose 50 ml 04/18/21 07:30 04/28/21 09:59 Dextrose 50% In Water (25gm) 50 Ml Syringe IV 50 ml Q30MIN PRN Administration Hypoglycemia Protocol Docusate Sodium 100 mg 04/30/21 10:00 04/30/21 21:41 Docusate Sodium 100 Mg Cap PO 100 mg BID TUTU Administration Famotidine 20 mg 04/16/21 22:00 04/30/21 21:41 Famotidine 20 Mg Tab PO 20 mg BID TUTU Administration Furosemide 20 mg 04/30/21 18:00 05/01/21 05:16 Furosemide 20 Mg/2 Ml Inj IV 20 mg 0600,1800 TUTU Administration Heparin Sodium (Porcine) 5,000 unit 04/16/21 22:00 04/30/21 21:42 Heparin 5,000 Unit/1 Ml Vial SUB-Q 5,000 unit Q12HR TUTU Administration Hydromorphone HCl 0.5 mg 04/16/21 14:00 04/30/21 22:16 Hydromorphone 1 Mg/1 Ml Inj IV 0.5 mg Q12H PRN Administration Pain , Severe (7-10) Dexmedetomidine HCl 400 mcg/ 104 mls @ 3.604 mls/hr 04/26/21 04:00 04/30/21 11:50 Sodium Chloride IV 0.3 mcg/kg/hr TITRATE TUTU 5.405 mls/hr Administration Protocol 0.2 MCG/KG/HR Amino Acids 2,000 mls @ 84 mls/hr 04/30/21 20:00 04/30/21 21:08 Clinimix 4.25%-10% Solution IV 05/01/21 19:59 84 mls/hr ONCE TUTU Administration Potassium Chloride 20 meq in 100 mls @ 100 mls/hr 04/30/21 09:25 Kcl 20meq/100ml IV Q1H PRN Potassium 3-3.5 mEq/L Potassium Chloride 20 meq in 100 mls @ 100 mls/hr 04/30/21 09:25 Kcl 20meq/100ml IV Q1H PRN Potassium 2.6-2.9 mEq/L Magnesium Sulfate 1 gm/ Sodium 52 mls @ 26 mls/hr 04/30/21 09:25 Chloride IV Q2H PRN Magnesium level 1.8-2 mg/dL Magnesium Sulfate 2 gm in 50 mls @ 25 mls/hr 04/30/21 09:25 Magnesium Sulfate 2gm/50ml IV Q2H PRN Magnesium level 1.5-1.7 mg/dL Magnesium Sulfate 4 gm in 100 mls @ 25 mls/hr 04/30/21 09:25 Magnesium Sulfate 4gm/100ml IV Q4H PRN Magnesium level < 1.4 mg/dL Sodium Phosphate 15 mmol/ 155 mls @ 40 mls/hr 04/30/21 09:25 Sodium Chloride IV Q4H PRN Phosphorous level 1.2-2.5 mg/d Sodium Phosphate 30 mmol/ 260 mls @ 40 mls/hr 04/30/21 09:25 Sodium Chloride IV Q6H PRN Phosphorous level < 1.2 mg/dL Insulin Glargine 5 units 04/24/21 22:00 04/30/21 21:42 Insulin Glargine 100 Units/Ml SUB-Q 5 units QHS TUTU Administration Insulin Human Lispro 0 unit 04/18/21 08:00 04/30/21 22:22 Insulin Lispro 100 Unit/Ml SUB-Q 4 unit ACHS TUTU Administration Protocol Methylprednisolone Sodium Succinate 40 mg 04/28/21 14:00 05/01/21 05:16 Methylprednisolone Sod Succinate 40 Mg/1 Ml Inj IV 40 mg Q8HR TUTU Administration Ondansetron HCl 4 mg 04/16/21 14:00 04/27/21 14:33 Ondansetron 4 Mg/2 Ml Inj IV 4 mg Q8H PRN Administration Nausea And Vomiting Sodium Chloride 10 ml 04/16/21 22:00 04/30/21 21:43 Sodium Chloride 0.9% 10 Ml Flush Syringe IV 10 ml BID TUTU Administration Sodium Chloride 10 ml 04/16/21 13:39 Sodium Chloride 0.9% 10 Ml Flush Syringe IV PRN PRN LINE FLUSH Zinc Sulfate 220 mg 04/16/21 22:00 04/30/21 21:41 Zinc Sulfate 220 Mg Cap PO 220 mg BID TUTU Administration Nutrition/Malnutrition Assess - Dietary Evaluation Nutrition/Malnutrition Findings: Nutrition Notes Start: 04/23/21 07:41 Freq: Status: Active Protocol: Document 04/30/21 17:14 EB (Rec: 08/17/21 17:20 EB [id number]) Nutrition Notes Need for Assessment generated from: MD Order Initial or Follow up Reassessment Current Diagnosis Respiratory Failure Other Pertinent Diagnosis COVID-19 pneu Current Diet Cardiac/Consistent CHO Labs/Tests Na 135 Glu 153 Pertinent Medications Vit. C Vit. D Height 4 ft 11.84 in Weight 68.4 kg Kinsey Body Weight (kg) 45.09 BMI 29.6 Weight change and time frame Wt stable from yesterday Subjective/Other Information RD consulted again for Malnutrition. Pt consumed 100% of breakfast this am. She remains on BiPap support. PICC line placed yesterday. Burn Absent Trauma Absent Minimum of two criteria Yes Energy Intake (severe) < or equal to 50% Estimated Energy Requirement > or equal to 5 days Interpretation of Weight Loss (severe) >5% in 1 month #2 Nutrition Diagnosis Malnutrition Diagnosis Progress(for reassessment Continues documentation) #1 Nutrition Diagnosis Inadequate oral intake Diagnosis Progress(for reassessment Continues documentation) Is patient on ventilator? No Is Patient Ambulatory and/or Out of Bed No REE-([facility]-confined to bed) [phone] Additional Notes Pro needs 1.2-2g/k-137g/ day Fluid needs 1ml/kcal Nutrition Intervention Change Diet Order: Continue current diet as tolerated Goal #1 PO tolerance Goal #2 PO intakes to meet nutrient needs as best possible Follow-Up By: 05/02/21 Additional Comments F/U: intakes, resp status
--- NOTE | 2021-04-30 12:53 | Progress Note ---
Assessment and Plan Cultures: Blood culture no growth so far Covid PCR: Positive A/P: 50-year-old female past medical history obesity, GERD, hyperlipidemia presents with COVID-19 pneumonia #Severe COVID-19 pneumonia #Acute hypoxemic respiratory failure: secondary to COVID-19 infection. Currently on high flow nasal cannula/BiPAP #Obesity Recs: -Methylprednisolone/steroids per primary. Complete 10 days. -Completed Remdesivir, s/p Actemra once -D-dimer 1796, CRP 0.5. Anticoagulation per hospital protocol based on d-dimer, if continues to rise, may warrant VTE evaluation. Chandni Dominguez MD, FACP [facility] ([facility] O: [phone] F: [phone] Subjective Date of service: 04/30/21 Interval history: Afebrile. Remains on BiPAP. D-dimer 1796, CRP 0.5. Objective - Exam Narrative Exam: Physical Exam (reviewed in chart to minimize risk of transmission) Constitutional: deferred Head, Ears, Nose: deferred Eyes: deferred Neck: deferred Oral: deferred Cardiovascular: deferred Respiratory: deferred GI: deferred Musculoskeletal: deferred Skin: deferred Hem/Lymphatic: deferred Psych: deferred Neurological: deferred - Constitutional Vitals: Vital Signs Temp Pulse Resp BP Pulse Ox 97.3 F L 47 L 16 96/47 100 04/30/21 12:00 04/30/21 12:45 04/30/21 12:45 04/30/21 12:45 04/30/21 12:45 Temperature -Last 24 Hours Temperature 97.3 F Temperature 98.0 F Temperature 98.8 F Temperature 98.8 F Temperature 98.5 F Temperature 98.5 F - Labs CBC & Chem 7: 04/30/21 08:00 04/30/21 08:00 Labs: Abnormal lab results 04/29/21 04/29/21 04/29/21 Range/Units 14:23 15:30 17:06 RDW (13.2-15.2) % D-Dimer (0-234) ng/mlDDU ABG pO2 52.6 L (80.0-90.0) mm Hg ABG O2 Saturation 86.4 L (95.0-99.0) % Oxyhemoglobin 84.6 L (95.0-99.0) % Sodium (137-145) mmol/L Chloride (98-107) mmol/L Creatinine (0.6-1.2) mg/dL Glucose (65-100) mg/dL POC Glucose 173 H 158 H (70-105) mg/dL AST (5-40) units/L ALT (7-56) units/L Alkaline Phosphatase (35-129) units/L Lactate Dehydrogenase (91-180) units/L Total Protein (6.3-8.2) g/dL Albumin (3.9-5) g/dL 04/29/21 04/30/21 04/30/21 Range/Units 21:27 07:16 08:00 RDW 16.1 H (13.2-15.2) % D-Dimer (0-234) ng/mlDDU ABG pO2 (80.0-90.0) mm Hg ABG O2 Saturation (95.0-99.0) % Oxyhemoglobin (95.0-99.0) % Sodium (137-145) mmol/L Chloride (98-107) mmol/L Creatinine (0.6-1.2) mg/dL Glucose (65-100) mg/dL POC Glucose 244 H 175 H (70-105) mg/dL AST (5-40) units/L ALT (7-56) units/L Alkaline Phosphatase (35-129) units/L Lactate Dehydrogenase (91-180) units/L Total Protein (6.3-8.2) g/dL Albumin (3.9-5) g/dL 04/30/21 04/30/21 04/30/21 Range/Units 08:00 08:00 11:03 RDW (13.2-15.2) % D-Dimer 1796.87 H (0-234) ng/mlDDU ABG pO2 (80.0-90.0) mm Hg ABG O2 Saturation (95.0-99.0) % Oxyhemoglobin (95.0-99.0) % Sodium 135 L (137-145) mmol/L Chloride 96.3 L (98-107) mmol/L Creatinine 0.2 L (0.6-1.2) mg/dL Glucose 153 H (65-100) mg/dL POC Glucose 183 H (70-105) mg/dL AST 41 H (5-40) units/L ALT 76 H (7-56) units/L Alkaline Phosphatase 160 H (35-129) units/L Lactate Dehydrogenase 522 H (91-180) units/L Total Protein 6.1 L (6.3-8.2) g/dL Albumin 3.1 L (3.9-5) g/dL
[2021-04-30] MEDS: FUROSEMIDE 20 MG/2 ML INJ IV SCH (19:02)
[2021-04-30] MEDS ORDERED: AMINO ACIDS 4.25%/DEXTROSE 10% 2,000 ML IV SCH (20:00)
[2021-04-30] MEDS: INSULIN GLARGINE 100 UNITS/ML SUB-Q SCH (21:42)
[2021-05-01] MEDS: FUROSEMIDE 20 MG/2 ML INJ IV SCH (05:16)
[2021-05-01] MEDS: methylPREDNISolone Sod Succinate 40 MG/1 ML INJ IV SCH ×2 (05:16→14:43)
[2021-05-01 06:28] LABS: Hematocrit 41.1 % (30.3-42.9); Hemoglobin 13.5 gm/dl (10.1-14.3); Mean Corpuscular HGB Conc 33 % (30-34); Mean Corpuscular Volume 89 fl (79-97); Platelet Count 231 K/mm3 (140-440); Red Blood Count 4.62 M/mm3 (3.65-5.03)
[2021-05-01 06:53] LABS: Alanine Aminotransferase 66 units/L (7-56); Albumin 3.2 g/dL (3.9-5); Blood Urea Nitrogen 24 mg/dL (7-17); Calcium 9.3 mg/dL (8.4-10.2); Hemolysis Index 28
[2021-05-01 07:08] LABS: BUN/Creatinine Ratio 60
[2021-05-01] MEDS ORDERED: INSULIN LISPRO 100 UNIT/ML SUB-Q ONE (08:09)
--- NOTE | 2021-05-01 10:57 | Progress Note ---
<ATTILA ORTIZ Seun - Last Filed: 05/01/21 12:30> Assessment and Plan Assessment and plan: NEURO- acute pain; anxiety PRN tylenol dex for comfort follows commands and RAY PRN pain meds maltese speaking right eye- viral conjunctivitis vs subconjunctival hemorrhage continue to monitor family updated on plan of care CV- ST SR-ST off pressors MAP goal 65 MAP has been in 70's Resp- acute hypoxic resp failure due to covid19 tolerating airvo 90%/40L today- conversant and texting on her cell phone see RT notes remains high risk for intubation ABG noted [id number] albuterol PRN no chest xray today GI- risk for protein gisella malnutrition given inc metabolic demand with resp insufficiency TPN started yesterday clears OK with aspiration precautions nutrition following bowel reg- colace BM 04/29 pepcid - volume overload; hypona net neg 856 ml over 24 hours lasix 20 mg IV yesterday Cr .2 to .4; no lasix this AM vit D replacement AM labs ordered Heme- coagulopathy of covid; on AC VTE SQH trend CBC hgb goal over 7 no bleeding on exam -D-dimer continues to inc - [id number] today on SQH BLE US ordered consider CT ro PE [email or web address] pna; sepsis zinc/vitC/D methylpred 40m gQ8 continues ID following completed actemra and remdesovir afebrile trend temp and WBC curve follow culture data Endo- hyperglycemia; obesity glargine HS SSI AC/HS 50 YO Female with GERD, Obesity, HLD presents to ED for evaluation. Patient reports "I cannot breathe". Patient states that she has experienced subjective fever, shortness of breath, malaise, body aches, dry cough, and shortness of breath over the past 1 week with progressively worsening symptoms over the same timeframe. EMS was notified and upon arrival the patient was found to be in distress and subsequent transported to [facility] for further care and evaluation of the aforementioned symptoms. The patient was seen and evaluated in the emergency department. All lab and imaging studies reviewed. Patient found to have a pulse oximetry of 86% with exertion on room air which is consistent with acute hypoxemic respiratory failure. Patient with chest x-ray which revealed bilateral pneumonia. Patient admitted to medical floor and initiated him on pneumonia protocol as well as coronavirus protocol. Patient knowledges fever but denies chills, chest pain, palpitation, skin rash, recent ill contacts, or known exposure to COVID-19. Prior admission on 01/21/2017 reviewed. All medication listed at time of admission has been reconciled. Patient is unvaccinated for coronavirus infection. CXR: Bilateral Pneumonia 04/17: Patient seen and examined, still uncomfortable with Hypoxic respiratory failure and on oxygen, will continue to steroids therapy, start patient on Remdesivir, ID consulted, Pulmonary consult placed. 04/18: Patient seen and examined, she is currently being changed to High flow NC due to worsening HYPOXIA, will transfer to IMCU, Pulmonary and ID following. Will also give a dose of Lasix today. Monitor Inflammatory markers. 04/19: Patient seen and examined still on high flow due to hypoxia. Appears a bit more comfortable today than yesterday. Cough has decreased in frequency. We will continue high dose Dexameathasone to complete 10 days. continue on Remdesivir 200 mg IV q day x 1 followed by 100 mg IV q day x 4 days -Obtain q48-72h inflammatory markers - ferritin, Ddimer, CRP, LDH Will also give lasix daily for the next 3 days and monitor renal function. Family updated. Continue prone positioning as tolerated 04/20: Patient has some desaturation episodes yesterday was placed on BiPAP. Discussed with ICU team for bed availability for patient to be transferred up. Continue prone position as tolerated. 04/21: Patient remains with profound hypoxia secondary to COVID pneumonia. -Continue steroids -Continue remedesir -S/P Actmera 04/22: Patient remains on steroids and remdesivir. ABG shows persistent hypoxia. We will continue current management additional trial of Lasix for the next few days to see if any improvement. Monitor inflammatory markers as needed. Prognosis is guarded remains on high flow 04/23; patient was treated with remdesivir and Actemra. Continue steroid. Patient's prognosis is guarded. 04/24; patient is on steroid. Patient is currently on BiPAP. Prognosis is guarded. Pulmonary is following. Patient was given Lasix and Ativan. 04/25; continue steroid. Patient was on 40 L of high flow oxygen with saturation was 88%. Pulmonary is following. Prognosis is guarded. Patient was given lasix and ativan. 04/26; patient is on BiPAP and Precedex. Prognosis is guarded. 04/27; patient is on BiPAP and Precedex. Patient will finish steroid today and w ill start on Solu-Medrol tomorrow. Prognosis is guarded. Blood pressure is better today. Hold Lasix. 04/28 patient is on 100 Fio2 via BIPAP. moderately dyspneic, pulmonary note reviewed, lab results reviewed 04/29 no acute events- see systems review above 04/30 no acute events overnight - on airvo today- TPN started -see systems review above 05-01 no acute events overnight- tolerating airvo- see systems review above The high probability of a clinically significant, sudden or life threatening deterioration of the [Pulmonary] system(s) required my full and direct attention, intervention and personal management. The aggregate critical care time was [60] minutes. This time is in addition to time spent performing reported procedures but includes the following: [x] Data Review and interpretation [x] Patient assessment and monitoring of vital signs [x] Documentation [x] Medication orders and management Disposition Plan: icu Total Time Spent with Patient (Minutes): 60 History Interval history: no acute events overnight tolerating airvo today Hospitalist Physical - Constitutional Vitals: Temp Pulse Resp BP Pulse Ox 98.4 F 59 L 23 108/52 98 05/01/21 09:09 05/01/21 06:00 05/01/21 06:00 05/01/21 06:00 05/01/21 06:00 General appearance: Present: mild distress - EENT Eyes: Present: PERRL ENT: clear oral mucosa - Neck Neck: Present: supple - Respiratory Respiratory effort: normal - Cardiovascular Rhythm: regular Peripheral Pulses: within normal limits - Abdominal General gastrointestinal: soft - Integumentary Integumentary: Present: clear, warm, dry - Psychiatric Psychiatric: appropriate mood/affect - Neurologic Neurologic: CNII-XII intact - Allied Health Allied health notes reviewed: nursing, RT, social work, case management Results - Labs CBC & Chem 7: 05/01/21 05:39 05/01/21 05:39 Labs: Laboratory Last Values WBC 10.5 K/mm3 (4.5-11.0) 05/01/21 05:39 RBC 4.62 M/mm3 (3.65-5.03) 05/01/21 05:39 Hgb 13.5 gm/dl (10.1-14.3) 05/01/21 05:39 Hct 41.1 % (30.3-42.9) 05/01/21 05:39 MCV 89 fl (79-97) 05/01/21 05:39 MCH 29 pg (28-32) 05/01/21 05:39 MCHC 33 % (30-34) 05/01/21 05:39 RDW 16.0 % (13.2-15.2) H 05/01/21 05:39 Plt Count 231 K/mm3 (140-440) 05/01/21 05:39 Lymph % (Auto) 7.7 % (13.4-35.0) L 04/17/21 03:50 [place] % (Auto) 2.5 % (0.0-7.3) 04/17/21 03:50 Eos % (Auto) 0.0 % (0.0-4.3) 04/17/21 03:50 Baso % (Auto) 0.0 % (0.0-1.8) 04/17/21 03:50 Lymph # (Auto) 0.6 K/mm3 (1.2-5.4) L 04/17/21 03:50 [place] # (Auto) 0.2 K/mm3 (0.0-0.8) 04/17/21 03:50 Eos # (Auto) 0.0 K/mm3 (0.0-0.4) 04/17/21 03:50 Baso # (Auto) 0.0 K/mm3 (0.0-0.1) 04/17/21 03:50 Seg Neutrophils % 89.8 % (40.0-70.0) H 04/17/21 03:50 Seg Neutrophils # 6.7 K/mm3 (1.8-7.7) 04/17/21 03:50 D-Dimer 3984.95 ng/mlDDU (0-234) H 05/01/21 05:39 ABG pH 7.407 pH Units (7.350-7.450) 04/29/21 14:23 POC ABG pCO2 45.5 mmHg (32.0-48.0) 04/26/21 02:45 ABG pCO2 42.2 mm Hg 04/29/21 14:23 POC ABG pO2 70.7 mmHg (83-108) L 04/26/21 02:45 ABG pO2 52.6 mm Hg (80.0-90.0) L 04/29/21 14:23 POC ABG HCO3 28.7 04/26/21 02:45 ABG HCO3 26.0 mmol/L (20.0-26.0) 04/29/21 14:23 ABG O2 Saturation 86.4 % (95.0-99.0) L 04/29/21 14:23 ABG O2 Content 18.1 (0.0-44) 04/29/21 14:23 POC ABG Base Excess 3.4 04/26/21 02:45 ABG Base Excess 1.1 mmol/L (-2.0-3.0) 04/29/21 14:23 ABG Hemoglobin 15.3 gm/dl (12.0-16.0) 04/29/21 14:23 ABG Oxyhemoglobin 93.0 (94-98) L 04/26/21 02:45 ABG Carboxyhemoglobin 1.5 % (0.0-5.0) 04/29/21 14:23 ABG Methemoglobin 0.6 % (0.0-1.5) 04/29/21 14:23 ABG Sodium 132.7 mmol/L (136.0-145.0) L 04/26/21 02:45 ABG Potassium 3.8 mmol/L (3.40-4.50) 04/26/21 02:45 ABG Chloride 98.0 mmol/L (98-107) 04/26/21 02:45 ABG Glucose 115 mg/dL (65-95) H 04/26/21 02:45 Oxyhemoglobin 84.6 % (95.0-99.0) L 04/29/21 14:23 Carboxyhemoglobin 0.7 (0.5-1.5) 04/26/21 02:45 FiO2 100 % 04/29/21 14:23 FiO2 % 100.0 04/26/21 02:45 Sodium 133 mmol/L (137-145) L 05/01/21 05:39 Potassium 4.9 mmol/L (3.6-5.0) 05/01/21 05:39 Chloride 92.1 mmol/L (98-107) L 05/01/21 05:39 Carbon Dioxide 30 mmol/L (22-30) 05/01/21 05:39 Anion Gap 16 mmol/L 05/01/21 05:39 BUN 24 mg/dL (7-17) H 05/01/21 05:39 Creatinine 0.4 mg/dL (0.6-1.2) L D 05/01/21 05:39 Estimated GFR > 60 ml/min 05/01/21 05:39 BUN/Creatinine Ratio 60 % 05/01/21 05:39 Glucose 269 mg/dL (65-100) H 05/01/21 05:39 POC Glucose 229 mg/dL (70-105) H 05/01/21 07:45 Hemoglobin A1c 8.5 % (4-6) H 04/18/21 07:36 Calcium 9.3 mg/dL (8.4-10.2) 05/01/21 05:39 Phosphorus 3.40 mg/dL (2.5-4.5) 05/01/21 05:39 Magnesium 2.10 mg/dL (1.7-2.3) 05/01/21 05:39 Ferritin 392.0 ng/mL (10.0-200.0) H 04/17/21 08:26 Total Bilirubin 0.30 mg/dL (0.1-1.2) 05/01/21 05:39 AST 33 units/L (5-40) 05/01/21 05:39 ALT 66 units/L (7-56) H 05/01/21 05:39 Alkaline Phosphatase 142 units/L (35-129) H 05/01/21 05:39 Lactate Dehydrogenase 522 units/L (91-180) H 04/30/21 08:00 C-Reactive Protein 0.50 mg/dL (0.00-1.30) 04/30/21 08:00 Total Protein 6.3 g/dL (6.3-8.2) 05/01/21 05:39 Albumin 3.2 g/dL (3.9-5) L 05/01/21 05:39 Albumin/Globulin Ratio 1.0 % 05/01/21 05:39 Procalcitonin < 0.05 ng/mL (<0.15) 04/17/21 08:26 Arterial Blood Glucose 115 mg/dL (65-95) H 04/26/21 02:45 Arterial Blood Ionized Calcium 4.6 mg/dL (4.6-5.3) 04/26/21 02:45 Coronavirus (PCR) Positive (Negative) A 04/17/21 Unknown Amos/IV: Voiding Method External Female Catheter Active Medications - Current Medications Current Medications: Generic Name Dose Route Start Last Admin Trade Name Freq PRN Reason Stop Dose Admin Acetaminophen 650 mg 04/16/21 14:00 04/27/21 18:58 Acetaminophen 325 Mg Tab PO 650 mg Q4H PRN Administration Pain MILD(1-3)/Fever >100.5/[place] Albuterol 2.5 mg 04/16/21 13:39 04/21/21 20:39 Albuterol 2.5 Mg/3 Ml Nebu IH 2.5 mg Q4HRT PRN Administration Shortness Of Breath Artificial Tears 2 drops 04/28/21 18:15 04/28/21 19:07 Hypromellose 0.5% Ophth Soln 15 Ml OU 2 drops Q4H PRN Administration Dry Eye(s) Ascorbic Acid 500 mg 04/24/21 10:00 04/30/21 09:19 Ascorbic Acid 500 Mg Tab PO 500 mg QDAY TUTU Administration Cholecalciferol 1,000 unit 04/17/21 10:00 04/30/21 09:19 Cholecalciferol (Vit D3) 1000 Unit (25 Mcg) Tab PO 1,000 unit QDAY TUTU Administration Dextrose 50 ml 04/18/21 07:30 04/28/21 09:59 Dextrose 50% In Water (25gm) 50 Ml Syringe IV 50 ml Q30MIN PRN Administration Hypoglycemia Protocol Docusate Sodium 100 mg 04/30/21 10:00 04/30/21 21:41 Docusate Sodium 100 Mg Cap PO 100 mg BID TUTU Administration Famotidine 20 mg 04/16/21 22:00 04/30/21 21:41 Famotidine 20 Mg Tab PO 20 mg BID TUTU Administration Heparin Sodium (Porcine) 5,000 unit 04/16/21 22:00 04/30/21 21:42 Heparin 5,000 Unit/1 Ml Vial SUB-Q 5,000 unit Q12HR TUTU Administration Hydromorphone HCl 0.5 mg 04/16/21 14:00 04/30/21 22:16 Hydromorphone 1 Mg/1 Ml Inj IV 0.5 mg Q12H PRN Administration Pain , Severe (7-10) Dexmedetomidine HCl 400 mcg/ 104 mls @ 3.604 mls/hr 04/26/21 04:00 04/30/21 11:50 Sodium Chloride IV 0.3 mcg/kg/hr TITRATE TUTU 5.405 mls/hr Administration Protocol 0.2 MCG/KG/HR Amino Acids 2,000 mls @ 84 mls/hr 04/30/21 20:00 04/30/21 21:08 Clinimix 4.25%-10% Solution IV 05/01/21 19:59 84 mls/hr ONCE TUTU Administration Potassium Chloride 20 meq in 100 mls @ 100 mls/hr 04/30/21 09:25 Kcl 20meq/100ml IV Q1H PRN Potassium 3-3.5 mEq/L Potassium Chloride 20 meq in 100 mls @ 100 mls/hr 04/30/21 09:25 Kcl 20meq/100ml IV Q1H PRN Potassium 2.6-2.9 mEq/L Magnesium Sulfate 1 gm/ Sodium 52 mls @ 26 mls/hr 04/30/21 09:25 Chloride IV Q2H PRN Magnesium level 1.8-2 mg/dL Magnesium Sulfate 2 gm in 50 mls @ 25 mls/hr 04/30/21 09:25 Magnesium Sulfate 2gm/50ml IV Q2H PRN Magnesium level 1.5-1.7 mg/dL Magnesium Sulfate 4 gm in 100 mls @ 25 mls/hr 04/30/21 09:25 Magnesium Sulfate 4gm/100ml IV Q4H PRN Magnesium level < 1.4 mg/dL Sodium Phosphate 15 mmol/ 155 mls @ 40 mls/hr 04/30/21 09:25 Sodium Chloride IV Q4H PRN Phosphorous level 1.2-2.5 mg/d Sodium Phosphate 30 mmol/ 260 mls @ 40 mls/hr 04/30/21 09:25 Sodium Chloride IV Q6H PRN Phosphorous level < 1.2 mg/dL Insulin Glargine 15 units 05/01/21 10:00 Insulin Glargine 100 Units/Ml SUB-Q DAILY TUTU Insulin Human Lispro 0 unit 05/01/21 12:00 Insulin Lispro 100 Unit/Ml SUB-Q Q6HR [facility] Protocol Methylprednisolone Sodium Succinate 40 mg 04/28/21 14:00 05/01/21 05:16 Methylprednisolone Sod Succinate 40 Mg/1 Ml Inj IV 40 mg Q8HR TUTU Administration Ondansetron HCl 4 mg 04/16/21 14:00 04/27/21 14:33 Ondansetron 4 Mg/2 Ml Inj IV 4 mg Q8H PRN Administration Nausea And Vomiting Sodium Chloride 10 ml 04/16/21 22:00 04/30/21 21:43 Sodium Chloride 0.9% 10 Ml Flush Syringe IV 10 ml BID TUTU Administration Sodium Chloride 10 ml 04/16/21 13:39 Sodium Chloride 0.9% 10 Ml Flush Syringe IV PRN PRN LINE FLUSH Zinc Sulfate 220 mg 04/16/21 22:00 04/30/21 21:41 Zinc Sulfate 220 Mg Cap PO 220 mg BID TUTU Administration Nutrition/Malnutrition Assess - Dietary Evaluation Nutrition/Malnutrition Findings: Nutrition Notes Start: 04/23/21 07:41 Freq: Status: Active Protocol: Document 04/30/21 17:14 EB (Rec: 04/30/21 17:20 [id number]) Nutrition Notes Need for Assessment generated from: MD Order Initial or Follow up Reassessment Current Diagnosis Respiratory Failure Other Pertinent Diagnosis COVID-19 pneu Current Diet Cardiac/Consistent CHO Labs/Tests Na 135 Glu 153 Pertinent Medications Vit. C Vit. D Height 4 ft 11.84 in Weight 68.4 kg [place] Body Weight (kg) 45.09 BMI 29.6 Weight change and time frame Wt stable from yesterday Subjective/Other Information RD consulted again for Malnutrition. Pt consumed 100% of breakfast this am. She remains on BiPap support. PICC line placed yesterday. Burn Absent Trauma Absent Minimum of two criteria Yes Energy Intake (severe) < or equal to 50% Estimated Energy Requirement > or equal to 5 days Interpretation of Weight Loss (severe) >5% in 1 month #2 Nutrition Diagnosis Malnutrition Diagnosis Progress(for reassessment Continues documentation) #1 Nutrition Diagnosis Inadequate oral intake Diagnosis Progress(for reassessment Continues documentation) Is patient on ventilator? No Is Patient Ambulatory and/or Out of Bed No REE-([facility] [place]conf[place] bed) [phone] Additional Notes Pro needs 1.2-2g/k-137g/ day Fluid needs 1ml/kcal Nutrition Intervention Change Diet Order: Continue current diet as tolerated Goal #1 PO tolerance Goal #2 PO intakes to meet nutrient needs as best possible Follow-Up By: 05/02/21 Additional Comments F/U: intakes, resp status - Attestation Statement I have reviewed and agreed w/ Malnutrition eval & tx plan: Yes <JOSE CERVANTES - Last Filed: 05/01/21 18:58> Assessment and Plan Assessment and plan: I saw and evaluated the patient. I agree with the findings and the plan of care as documented in the Nurse Practitioner's~note, with the following corrections and additions. Hospitalist Physical - Constitutional Vitals: Temp Pulse Resp BP Pulse Ox 98.2 F 96 H 30 H 119/69 88 05/01/21 13:00 05/01/21 18:30 05/01/21 18:30 05/01/21 18:30 05/01/21 18:30 Results - Labs CBC & Chem 7: 05/01/21 05:39 05/01/21 05:39 Labs: Laboratory Last Values WBC 10.5 K/mm3 (4.5-11.0) 05/01/21 05:39 RBC 4.62 M/mm3 (3.65-5.03) 05/01/21 05:39 Hgb 13.5 gm/dl (10.1-14.3) 05/01/21 05:39 Hct 41.1 % (30.3-42.9) 05/01/21 05:39 MCV 89 fl (79-97) 05/01/21 05:39 MCH 29 pg (28-32) 05/01/21 05:39 MCHC 33 % (30-34) 05/01/21 05:39 RDW 16.0 % (13.2-15.2) H 05/01/21 05:39 Plt Count 231 K/mm3 (140-440) 05/01/21 05:39 Lymph % (Auto) 7.7 % (13.4-35.0) L 04/17/21 03:50 [place] % (Auto) 2.5 % (0.0-7.3) 04/17/21 03:50 Eos % (Auto) 0.0 % (0.0-4.3) 04/17/21 03:50 Baso % (Auto) 0.0 % (0.0-1.8) 04/17/21 03:50 Lymph # (Auto) 0.6 K/mm3 (1.2-5.4) L 04/17/21 03:50 [place] # (Auto) 0.2 K/mm3 (0.0-0.8) 04/17/21 03:50 Eos # (Auto) 0.0 K/mm3 (0.0-0.4) 04/17/21 03:50 Baso # (Auto) 0.0 K/mm3 (0.0-0.1) 04/17/21 03:50 Seg Neutrophils % 89.8 % (40.0-70.0) H 04/17/21 03:50 Seg Neutrophils # 6.7 K/mm3 (1.8-7.7) 04/17/21 03:50 D-Dimer 3984.95 ng/mlDDU (0-234) H 05/01/21 05:39 ABG pH 7.407 pH Units (7.350-7.450) 04/29/21 14:23 POC ABG pCO2 45.5 mmHg (32.0-48.0) 04/26/21 02:45 ABG pCO2 42.2 mm Hg 04/29/21 14:23 POC ABG pO2 70.7 mmHg (83-108) L 04/26/21 02:45 ABG pO2 52.6 mm Hg (80.0-90.0) L 04/29/21 14:23 POC ABG HCO3 28.7 04/26/21 02:45 ABG HCO3 26.0 mmol/L (20.0-26.0) 04/29/21 14:23 ABG O2 Saturation 86.4 % (95.0-99.0) L 04/29/21 14:23 ABG O2 Content 18.1 (0.0-44) 04/29/21 14:23 POC ABG Base Excess 3.4 04/26/21 02:45 ABG Base Excess 1.1 mmol/L (-2.0-3.0) 04/29/21 14:23 ABG Hemoglobin 15.3 gm/dl (12.0-16.0) 04/29/21 14:23 ABG Oxyhemoglobin 93.0 (94-98) L 04/26/21 02:45 ABG Carboxyhemoglobin 1.5 % (0.0-5.0) 04/29/21 14:23 ABG Methemoglobin 0.6 % (0.0-1.5) 04/29/21 14:23 ABG Sodium 132.7 mmol/L (136.0-145.0) L 04/26/21 02:45 ABG Potassium 3.8 mmol/L (3.40-4.50) 04/26/21 02:45 ABG Chloride 98.0 mmol/L (98-107) 04/26/21 02:45 ABG Glucose 115 mg/dL (65-95) H 04/26/21 02:45 Oxyhemoglobin 84.6 % (95.0-99.0) L 04/29/21 14:23 Carboxyhemoglobin 0.7 (0.5-1.5) 04/26/21 02:45 FiO2 100 % 04/29/21 14:23 FiO2 % 100.0 04/26/21 02:45 Sodium 133 mmol/L (137-145) L 05/01/21 05:39 Potassium 4.9 mmol/L (3.6-5.0) 05/01/21 05:39 Chloride 92.1 mmol/L (98-107) L 05/01/21 05:39 Carbon Dioxide 30 mmol/L (22-30) 05/01/21 05:39 Anion Gap 16 mmol/L 05/01/21 05:39 BUN 24 mg/dL (7-17) H 05/01/21 05:39 Creatinine 0.4 mg/dL (0.6-1.2) L D 05/01/21 05:39 Estimated GFR > 60 ml/min 05/01/21 05:39 BUN/Creatinine Ratio 60 % 05/01/21 05:39 Glucose 269 mg/dL (65-100) H 05/01/21 05:39 POC Glucose 279 mg/dL (70-105) H 05/01/21 15:46 Hemoglobin A1c 8.5 % (4-6) H 04/18/21 07:36 Calcium 9.3 mg/dL (8.4-10.2) 05/01/21 05:39 Phosphorus 3.40 mg/dL (2.5-4.5) 05/01/21 05:39 Magnesium 2.10 mg/dL (1.7-2.3) 05/01/21 05:39 Ferritin 392.0 ng/mL (10.0-200.0) H 04/17/21 08:26 Total Bilirubin 0.30 mg/dL (0.1-1.2) 05/01/21 05:39 AST 33 units/L (5-40) 05/01/21 05:39 ALT 66 units/L (7-56) H 05/01/21 05:39 Alkaline Phosphatase 142 units/L (35-129) H 05/01/21 05:39 Lactate Dehydrogenase 522 units/L (91-180) H 04/30/21 08:00 C-Reactive Protein 0.50 mg/dL (0.00-1.30) 04/30/21 08:00 Total Protein 6.3 g/dL (6.3-8.2) 05/01/21 05:39 Albumin 3.2 g/dL (3.9-5) L 05/01/21 05:39 Albumin/Globulin Ratio 1.0 % 05/01/21 05:39 Procalcitonin < 0.05 ng/mL (<0.15) 04/17/21 08:26 Arterial Blood Glucose 115 mg/dL (65-95) H 04/26/21 02:45 Arterial Blood Ionized Calcium 4.6 mg/dL (4.6-5.3) 04/26/21 02:45 Coronavirus (PCR) Positive (Negative) A 04/17/21 Unknown Amos/IV: Voiding Method External Female Catheter Active Medications - Current Medications Current Medications: Generic Name Dose Route Start Last Admin Trade Name Freq PRN Reason Stop Dose Admin Acetaminophen 650 mg 04/16/21 14:00 04/27/21 18:58 Acetaminophen 325 Mg Tab PO 650 mg Q4H PRN Administration Pain MILD(1-3)/Fever >100.5/[place] Albuterol 2.5 mg 04/16/21 13:39 04/21/21 20:39 Albuterol 2.5 Mg/3 Ml Nebu IH 2.5 mg Q4HRT PRN Administration Shortness Of Breath Artificial Tears 2 drops 04/28/21 18:15 05/01/21 11:29 Hypromellose 0.5% Ophth Soln 15 Ml OU 2 drops Q4H PRN Administration Dry Eye(s) Ascorbic Acid 500 mg 04/24/21 10:00 05/01/21 11:14 Ascorbic Acid 500 Mg Tab PO 500 mg QDAY TUTU Administration Cholecalciferol 1,000 unit 04/17/21 10:00 05/01/21 11:15 Cholecalciferol (Vit D3) 1000 Unit (25 Mcg) Tab PO 1,000 unit QDAY TUTU Administration Dextrose 50 ml 04/18/21 07:30 04/28/21 09:59 Dextrose 50% In Water (25gm) 50 Ml Syringe IV 50 ml Q30MIN PRN Administration Hypoglycemia Protocol Docusate Sodium 100 mg 04/30/21 10:00 05/01/21 11:15 Docusate Sodium 100 Mg Cap PO 100 mg BID TUTU Administration Famotidine 20 mg 04/16/21 22:00 05/01/21 11:15 Famotidine 20 Mg Tab PO 20 mg BID TUTU Administration Heparin Sodium (Porcine) 5,000 unit 04/16/21 22:00 05/01/21 11:15 Heparin 5,000 Unit/1 Ml Vial SUB-Q 5,000 unit Q12HR TUTU Administration Hydromorphone HCl 0.5 mg 04/16/21 14:00 05/01/21 11:30 Hydromorphone 1 Mg/1 Ml Inj IV 0.5 mg Q12H PRN Administration Pain , Severe (7-10) Dexmedetomidine HCl 400 mcg/ 104 mls @ 3.604 mls/hr 04/26/21 04:00 05/01/21 15:26 Sodium Chloride IV 0.3 mcg/kg/hr TITRATE TUTU 5.405 mls/hr Administration Protocol 0.2 MCG/KG/HR Amino Acids 2,000 mls @ 84 mls/hr 04/30/21 20:00 04/30/21 21:08 Clinimix 4.25%-10% Solution IV 05/01/21 19:59 84 mls/hr ONCE TUTU Administration Potassium Chloride 20 meq in 100 mls @ 100 mls/hr 04/30/21 09:25 Kcl 20meq/100ml IV Q1H PRN Potassium 3-3.5 mEq/L Potassium Chloride 20 meq in 100 mls @ 100 mls/hr 04/30/21 09:25 Kcl 20meq/100ml IV Q1H PRN Potassium 2.6-2.9 mEq/L Magnesium Sulfate 1 gm/ Sodium 52 mls @ 26 mls/hr 04/30/21 09:25 Chloride IV Q2H PRN Magnesium level 1.8-2 mg/dL Magnesium Sulfate 2 gm in 50 mls @ 25 mls/hr 04/30/21 09:25 Magnesium Sulfate 2gm/50ml IV Q2H PRN Magnesium level 1.5-1.7 mg/dL Magnesium Sulfate 4 gm in 100 mls @ 25 mls/hr 04/30/21 09:25 Magnesium Sulfate 4gm/100ml IV Q4H PRN Magnesium level < 1.4 mg/dL Sodium Phosphate 15 mmol/ 155 mls @ 40 mls/hr 04/30/21 09:25 Sodium Chloride IV Q4H PRN Phosphorous level 1.2-2.5 mg/d Sodium Phosphate 30 mmol/ 260 mls @ 40 mls/hr 04/30/21 09:25 Sodium Chloride IV Q6H PRN Phosphorous level < 1.2 mg/dL Amino Acids 2,000 mls @ 84 mls/hr 05/01/21 20:00 Clinimix 4.25%-10% Solution IV 05/02/21 19:59 ONCE TUTU Insulin Glargine 15 units 05/01/21 10:00 05/01/21 11:35 Insulin Glargine 100 Units/Ml SUB-Q 15 units DAILY TUTU Administration Insulin Human Lispro 0 unit 05/01/21 12:00 05/01/21 12:53 Insulin Lispro 100 Unit/Ml SUB-Q 6 unit Q6HR TUTU Administration Protocol Methylprednisolone Sodium Succinate 40 mg 04/28/21 14:00 05/01/21 14:43 Methylprednisolone Sod Succinate 40 Mg/1 Ml Inj IV 40 mg Q8HR TUTU Administration Ondansetron HCl 4 mg 04/16/21 14:00 04/27/21 14:33 Ondansetron 4 Mg/2 Ml Inj IV 4 mg Q8H PRN Administration Nausea And Vomiting Sodium Chloride 10 ml 04/16/21 22:00 05/01/21 11:17 Sodium Chloride 0.9% 10 Ml Flush Syringe IV 10 ml BID TUTU Administration Sodium Chloride 10 ml 04/16/21 13:39 Sodium Chloride 0.9% 10 Ml Flush Syringe IV PRN PRN LINE FLUSH Zinc Sulfate 220 mg 04/16/21 22:00 05/01/21 11:15 Zinc Sulfate 220 Mg Cap PO 220 mg BID TUTU Administration Nutrition/Malnutrition Assess - Dietary Evaluation Nutrition/Malnutrition Findings: Nutrition Notes Start: 04/23/21 07:41 Freq: Status: Active Protocol: Document 04/30/21 17:14 EB (Rec: 04/30/21 17:20 [id number]) Nutrition Notes Need for Assessment generated from: MD Order Initial or Follow up Reassessment Current Diagnosis Respiratory Failure Other Pertinent Diagnosis COVID-19 pneu Current Diet Cardiac/Consistent CHO Labs/Tests Na 135 Glu 153 Pertinent Medications Vit. C Vit. D Height 4 ft 11.84 in Weight 68.4 kg [place] Body Weight (kg) 45.09 BMI 29.6 Weight change and time frame Wt stable from yesterday Subjective/Other Information RD consulted again for Malnutrition. Pt consumed 100% of breakfast this am. She remains on BiPap support. PICC line placed yesterday. Burn Absent Trauma Absent Minimum of two criteria Yes Energy Intake (severe) < or equal to 50% Estimated Energy Requirement > or equal to 5 days Interpretation of Weight Loss (severe) >5% in 1 month #2 Nutrition Diagnosis Malnutrition Diagnosis Progress(for reassessment Continues documentation) #1 Nutrition Diagnosis Inadequate oral intake Diagnosis Progress(for reassessment Continues documentation) Is patient on ventilator? No Is Patient Ambulatory and/or Out of Bed No REE-([facility] [place]conf[place] bed) [phone] Additional Notes Pro needs 1.2-2g/k-137g/ day Fluid needs 1ml/kcal Nutrition Intervention Change Diet Order: Continue current diet as tolerated Goal #1 PO tolerance Goal #2 PO intakes to meet nutrient needs as best possible Follow-Up By: 05/02/21 Additional Comments F/U: intakes, resp status
[2021-05-01] MEDS: ASCORBIC ACID 500 MG TAB PO SCH (11:14)
[2021-05-01] MEDS: ZINC SULFATE 220 MG CAP PO SCH (11:15)
[2021-05-01] MEDS: HEPARIN 5,000 UNIT/1 ML VIAL SUB-Q SCH (11:15)
[2021-05-01] MEDS: FAMOTIDINE 20 MG TAB PO SCH (11:15)
[2021-05-01] MEDS: DOCUSATE SODIUM 100 MG CAP PO SCH (11:15)
[2021-05-01] MEDS: CHOLECALCIFEROL (VIT D3) 1000 UNIT (25 mcg) TAB PO SCH (11:15)
[2021-05-01] MEDS: HYPROMELLOSE 0.5% OPHTH SOLN 15 ML OU PRN (11:29)
[2021-05-01] MEDS: HYDROmorphone 1 MG/1 ML INJ IV PRN (11:30)
--- NOTE | 2021-05-01 11:33 | Progress Note ---
Assessment and Plan 50 y/o female with acute respiratory failure secondary to COVID19 pneumonia. 05/01/21: Continue to wean FiO2 for sats >88%. A sat of 90 is more than acceptable and oxygen should not be increased for this unless patient desats and remains at a sat lower than 88. Bipap at night to give some form of relief and HFNC during the day. Currently on just this alone which is improvement. Ok with daily diuresis but must monitor renal function and BP closely. She was over diuresed last week and we ended up giving fluid back. Prognosis remains guarded. 04/30/21: Will start CLinimix today for nutritional support, without electrolytes. Check labs in am. Prone if able. Continue precedx for anxiety. Very very guarded prognosis. Attempting our best to not intubate. 04/29/21: Continue precedex. Continue IV solumedrol. Prone if able. Guarded prognosis. 04/28/21: Continue Precedex. Picc team attempting to place line now. Stable on Bipap. Ordered steroids IV solumedrol to start today. Prognosis remains guarded, still at very high risk for intubation. 04/27/21: Hypotension improving/improved. Hold on any further lasix dosing. Continue precedex to help with anxeity. later today please attempt HFNC with NRB if needed. Attempt to feed if possible. Steroids end today, please order solumedrol 40q8 to start tomorrow (04/28/21). guarded prognosis. 04/26/21: Hypotension today, most likely from precedex use and diuresis that I did the last several days. Will bolus again today. Consider midodrine if BP does not respond. 04/25/21: Lasix again today. Keep PRN ativan for now. Hold on precedex for now. Guarded prognosis. Labs ordered for tomorrow. 04/24/21: Lasix today. Will also start patient on low dose PRN ativan. If this does not help will then try precedex. Guarded prognosis. 04/23/21: Prone as tolerated. No lasix today. Continue decadron. Guarded prognosis. High risk for intubation and high mortality with intubation. 04/19/21: Prone as tolerated during the day and sleep prone at night. Continue IV remdesivir and steroids. Did get actemra. Guarded prognosis. 1. Daily net negative state 2. Prone if possible 3. IV remdesivir. 4. Should be a candidate for Actemra 5. IV steroids 6. Guarded Prognosis Subjective Date of service: 05/01/21 Interval history: Doing better today. Tolerating HFNC much easier than previous day. Objective Vital Signs - 12hr 04/30/21 04/30/21 04/30/21 23:30 23:39 23:45 Temperature Pulse Rate 48 L 59 L 49 L Respiratory 19 18 Rate Blood Pressure 88/44 101/56 O2 Sat by Pulse 99 99 Oximetry 04/30/21 05/01/21 05/01/21 23:53 00:00 00:15 Temperature 98.3 F Pulse Rate 48 L 46 L 47 L Respiratory 19 18 19 Rate Blood Pressure 101/56 90/48 98/51 O2 Sat by Pulse 100 99 98 Oximetry 05/01/21 05/01/21 05/01/21 00:30 00:45 01:00 Temperature Pulse Rate 48 L 47 L 48 L Respiratory 19 20 22 Rate Blood Pressure 102/54 95/52 101/58 O2 Sat by Pulse 100 99 99 Oximetry 05/01/21 05/01/21 05/01/21 01:15 01:30 01:45 Temperature Pulse Rate 48 L 48 L 48 L Respiratory 23 21 24 Rate Blood Pressure 97/56 90/51 95/52 O2 Sat by Pulse 98 99 99 Oximetry 05/01/21 05/01/21 05/01/21 02:00 02:15 02:30 Temperature Pulse Rate 51 L 71 77 Respiratory 20 23 27 H Rate Blood Pressure 95/52 109/62 122/65 O2 Sat by Pulse 100 97 96 Oximetry 05/01/21 05/01/21 05/01/21 02:45 03:00 03:15 Temperature Pulse Rate 67 57 L 47 L Respiratory 28 H 26 H 21 Rate Blood Pressure 109/59 100/47 94/56 O2 Sat by Pulse 97 98 99 Oximetry 05/01/21 05/01/21 05/01/21 03:17 03:31 03:45 Temperature 98.8 F Pulse Rate 74 49 L Respiratory 38 H 26 H Rate Blood Pressure 107/50 97/53 O2 Sat by Pulse 95 96 Oximetry 05/01/21 05/01/21 05/01/21 03:50 04:00 04:15 Temperature Pulse Rate 49 L 48 L Respiratory 23 21 Rate Blood Pressure 99/52 96/52 O2 Sat by Pulse 94 94 100 Oximetry 05/01/21 05/01/21 05/01/21 04:30 04:45 05:00 Temperature Pulse Rate 49 L 48 L 49 L Respiratory 18 20 21 Rate Blood Pressure 103/57 101/57 97/58 O2 Sat by Pulse 100 100 100 Oximetry 05/01/21 05/01/21 05/01/21 05:15 05:30 05:45 Temperature Pulse Rate 49 L 53 L 60 Respiratory 20 28 H 25 H Rate Blood Pressure 101/58 102/57 102/57 O2 Sat by Pulse 100 100 98 Oximetry 05/01/21 05/01/21 06:00 09:09 Temperature 98.4 F Pulse Rate 59 L Respiratory 23 Rate Blood Pressure 108/52 O2 Sat by Pulse 98 Oximetry Constitutional: no acute distress, other (on hiflo 100%) Eyes: non-icteric, other (sl injected) ENT: oropharynx moist, other (white plaques on tongue) Ascultation: Bilateral: diminished breath sounds Cardiovascular: regular rate and rhythm Gastrointestinal: normoactive bowel sounds, soft, non-tender, non-distended Extremities: no cyanosis Psychiatric: anxious CBC and BMP: 05/01/21 05:39 05/01/21 05:39 ABG, PT/INR, D-dimer: ABG ABG pH 7.407 pH Units (7.350-7.450) 04/29/21 14:23 POC ABG pCO2 45.5 mmHg (32.0-48.0) 04/26/21 02:45 ABG pCO2 42.2 mm Hg 04/29/21 14:23 POC ABG pO2 70.7 mmHg (83-108) L 04/26/21 02:45 ABG pO2 52.6 mm Hg (80.0-90.0) L 04/29/21 14:23 POC ABG HCO3 28.7 04/26/21 02:45 ABG O2 Saturation 86.4 % (95.0-99.0) L 04/29/21 14:23 PT/INR, D-dimer D-Dimer 3984.95 ng/mlDDU (0-234) H 05/01/21 05:39 Abnormal lab findings: Abnormal Labs 04/16/21 04/16/21 04/16/21 11:42 11:42 11:42 WBC MCHC RDW 16.1 H Lymph % (Auto) 7.8 L Lymph # (Auto) 0.8 L Seg Neutrophils % 87.7 H Seg Neutrophils # 8.5 H D-Dimer 338.70 H ABG pH POC ABG pO2 ABG pO2 ABG O2 Saturation ABG Oxyhemoglobin ABG Sodium ABG Glucose Oxyhemoglobin Carboxyhemoglobin Sodium Potassium Chloride Carbon Dioxide BUN Creatinine Glucose 194 H POC Glucose Hemoglobin A1c Ferritin AST ALT Alkaline Phosphatase Lactate Dehydrogenase C-Reactive Protein Total Protein 8.4 H Albumin 3.8 L Arterial Blood Glucose Coronavirus (PCR) 04/16/21 04/16/21 04/17/21 11:42 11:42 03:50 WBC MCHC RDW 16.0 H Lymph % (Auto) 7.7 L Lymph # (Auto) 0.6 L Seg Neutrophils % 89.8 H Seg Neutrophils # D-Dimer ABG pH POC ABG pO2 ABG pO2 ABG O2 Saturation ABG Oxyhemoglobin ABG Sodium ABG Glucose Oxyhemoglobin Carboxyhemoglobin Sodium Potassium Chloride Carbon Dioxide BUN Creatinine Glucose 195 H POC Glucose Hemoglobin A1c Ferritin 254.3 H AST ALT Alkaline Phosphatase Lactate Dehydrogenase 359 H C-Reactive Protein 15.20 H Total Protein Albumin Arterial Blood Glucose Coronavirus (PCR) 04/17/21 04/17/21 04/17/21 03:50 08:26 08:26 WBC MCHC RDW Lymph % (Auto) Lymph # (Auto) Seg Neutrophils % Seg Neutrophils # D-Dimer 262.48 H ABG pH POC ABG pO2 ABG pO2 ABG O2 Saturation ABG Oxyhemoglobin ABG Sodium ABG Glucose Oxyhemoglobin Carboxyhemoglobin Sodium Potassium Chloride Carbon Dioxide BUN 20 H Creatinine 0.5 L Glucose 249 H 225 H POC Glucose Hemoglobin A1c Ferritin AST ALT Alkaline Phosphatase Lactate Dehydrogenase 338 H C-Reactive Protein 17.20 H Total Protein Albumin 3.2 L Arterial Blood Glucose Coronavirus (PCR) 04/17/21 04/17/21 04/17/21 08:26 15:04 Unknown WBC MCHC RDW Lymph % (Auto) Lymph # (Auto) Seg Neutrophils % Seg Neutrophils # D-Dimer ABG pH POC ABG pO2 ABG pO2 ABG O2 Saturation ABG Oxyhemoglobin ABG Sodium ABG Glucose Oxyhemoglobin Carboxyhemoglobin Sodium Potassium Chloride Carbon Dioxide BUN 20 H Creatinine 0.5 L Glucose 246 H POC Glucose Hemoglobin A1c Ferritin 392.0 H AST ALT Alkaline Phosphatase Lactate Dehydrogenase C-Reactive Protein Total Protein 8.3 H Albumin 3.1 L Arterial Blood Glucose Coronavirus (PCR) Positive A 04/18/21 04/18/21 04/18/21 05:06 05:06 07:36 WBC 11.6 H MCHC RDW 16.1 H Lymph % (Auto) Lymph # (Auto) Seg Neutrophils % Seg Neutrophils # D-Dimer ABG pH POC ABG pO2 ABG pO2 ABG O2 Saturation ABG Oxyhemoglobin ABG Sodium ABG Glucose Oxyhemoglobin Carboxyhemoglobin Sodium Potassium 5.2 H Chloride Carbon Dioxide BUN 22 H Creatinine 0.5 L Glucose 315 H POC Glucose Hemoglobin A1c 8.5 H Ferritin AST ALT Alkaline Phosphatase Lactate Dehydrogenase C-Reactive Protein Total Protein Albumin 3.3 L Arterial Blood Glucose Coronavirus (PCR) 04/18/21 04/18/21 04/18/21 11:59 16:43 23:24 WBC MCHC RDW Lymph % (Auto) Lymph # (Auto) Seg Neutrophils % Seg Neutrophils # D-Dimer ABG pH POC ABG pO2 ABG pO2 ABG O2 Saturation ABG Oxyhemoglobin ABG Sodium ABG Glucose Oxyhemoglobin Carboxyhemoglobin Sodium Potassium Chloride Carbon Dioxide BUN Creatinine Glucose POC Glucose 284 H 273 H 290 H Hemoglobin A1c Ferritin AST ALT Alkaline Phosphatase Lactate Dehydrogenase C-Reactive Protein Total Protein Albumin Arterial Blood Glucose Coronavirus (PCR) 04/19/21 04/19/21 04/19/21 04:19 04:19 08:10 WBC MCHC RDW 15.7 H Lymph % (Auto) Lymph # (Auto) Seg Neutrophils % Seg Neutrophils # D-Dimer ABG pH POC ABG pO2 ABG pO2 ABG O2 Saturation ABG Oxyhemoglobin ABG Sodium ABG Glucose Oxyhemoglobin Carboxyhemoglobin Sodium Potassium Chloride Carbon Dioxide BUN 27 H Creatinine 0.4 L Glucose 184 H POC Glucose 194 H Hemoglobin A1c Ferritin AST ALT Alkaline Phosphatase Lactate Dehydrogenase C-Reactive Protein Total Protein Albumin 3.1 L Arterial Blood Glucose Coronavirus (PCR) 04/19/21 04/19/21 04/19/21 11:38 16:25 22:04 WBC MCHC RDW Lymph % (Auto) Lymph # (Auto) Seg Neutrophils % Seg Neutrophils # D-Dimer ABG pH POC ABG pO2 ABG pO2 ABG O2 Saturation ABG Oxyhemoglobin ABG Sodium ABG Glucose Oxyhemoglobin Carboxyhemoglobin Sodium Potassium Chloride Carbon Dioxide BUN Creatinine Glucose POC Glucose 224 H 297 H 251 H Hemoglobin A1c Ferritin AST ALT Alkaline Phosphatase Lactate Dehydrogenase C-Reactive Protein Total Protein Albumin Arterial Blood Glucose Coronavirus (PCR) 04/20/21 04/20/21 04/20/21 05:28 08:43 16:21 WBC MCHC RDW Lymph % (Auto) Lymph # (Auto) Seg Neutrophils % Seg Neutrophils # D-Dimer ABG pH POC ABG pO2 ABG pO2 ABG O2 Saturation ABG Oxyhemoglobin ABG Sodium ABG Glucose Oxyhemoglobin Carboxyhemoglobin Sodium Potassium Chloride Carbon Dioxide BUN 27 H Creatinine Glucose 192 H POC Glucose 173 H 253 H Hemoglobin A1c Ferritin AST ALT Alkaline Phosphatase Lactate Dehydrogenase C-Reactive Protein Total Protein Albumin 3.0 L Arterial Blood Glucose Coronavirus (PCR) 04/21/21 04/21/21 04/21/21 07:58 12:05 16:08 WBC MCHC RDW Lymph % (Auto) Lymph # (Auto) Seg Neutrophils % Seg Neutrophils # D-Dimer ABG pH POC ABG pO2 ABG pO2 ABG O2 Saturation ABG Oxyhemoglobin ABG Sodium ABG Glucose Oxyhemoglobin Carboxyhemoglobin Sodium Potassium Chloride Carbon Dioxide BUN Creatinine Glucose POC Glucose 140 H 252 H 214 H Hemoglobin A1c Ferritin AST ALT Alkaline Phosphatase Lactate Dehydrogenase C-Reactive Protein Total Protein Albumin Arterial Blood Glucose Coronavirus (PCR) 04/21/21 04/22/21 04/22/21 21:42 08:37 12:01 WBC MCHC RDW Lymph % (Auto) Lymph # (Auto) Seg Neutrophils % Seg Neutrophils # D-Dimer ABG pH 7.457 H POC ABG pO2 49.4 L ABG pO2 ABG O2 Saturation ABG Oxyhemoglobin 85.6 L ABG Sodium ABG Glucose 121 H Oxyhemoglobin Carboxyhemoglobin 0.3 L Sodium Potassium Chloride Carbon Dioxide BUN Creatinine Glucose POC Glucose 162 H 227 H Hemoglobin A1c Ferritin AST ALT Alkaline Phosphatase Lactate Dehydrogenase C-Reactive Protein Total Protein Albumin Arterial Blood Glucose 121 H Coronavirus (PCR) 04/22/21 04/22/21 04/23/21 16:26 22:23 04:52 WBC MCHC RDW 15.7 H Lymph % (Auto) Lymph # (Auto) Seg Neutrophils % Seg Neutrophils # D-Dimer ABG pH POC ABG pO2 ABG pO2 ABG O2 Saturation ABG Oxyhemoglobin ABG Sodium ABG Glucose Oxyhemoglobin Carboxyhemoglobin Sodium Potassium Chloride Carbon Dioxide BUN Creatinine Glucose POC Glucose 200 H 136 H Hemoglobin A1c Ferritin AST ALT Alkaline Phosphatase Lactate Dehydrogenase C-Reactive Protein Total Protein Albumin Arterial Blood Glucose Coronavirus (PCR) 04/23/21 04/23/21 04/23/21 04:52 12:06 17:41 WBC MCHC RDW Lymph % (Auto) Lymph # (Auto) Seg Neutrophils % Seg Neutrophils # D-Dimer ABG pH POC ABG pO2 ABG pO2 ABG O2 Saturation ABG Oxyhemoglobin ABG Sodium ABG Glucose Oxyhemoglobin Carboxyhemoglobin Sodium 136 L Potassium Chloride 97.7 L Carbon Dioxide BUN 23 H Creatinine Glucose 101 H POC Glucose 202 H 169 H Hemoglobin A1c Ferritin AST 46 H ALT Alkaline Phosphatase Lactate Dehydrogenase C-Reactive Protein Total Protein Albumin 3.3 L Arterial Blood Glucose Coronavirus (PCR) 04/23/21 04/24/21 04/24/21 23:08 05:17 08:38 WBC MCHC RDW Lymph % (Auto) Lymph # (Auto) Seg Neutrophils % Seg Neutrophils # D-Dimer ABG pH POC ABG pO2 ABG pO2 ABG O2 Saturation ABG Oxyhemoglobin ABG Sodium ABG Glucose Oxyhemoglobin Carboxyhemoglobin Sodium Potassium Chloride Carbon Dioxide BUN Creatinine Glucose POC Glucose 111 H 108 H 126 H Hemoglobin A1c Ferritin AST ALT Alkaline Phosphatase Lactate Dehydrogenase C-Reactive Protein Total Protein Albumin Arterial Blood Glucose Coronavirus (PCR) 04/24/21 04/24/21 04/24/21 11:54 17:57 21:23 WBC MCHC RDW Lymph % (Auto) Lymph # (Auto) Seg Neutrophils % Seg Neutrophils # D-Dimer ABG pH POC ABG pO2 ABG pO2 ABG O2 Saturation ABG Oxyhemoglobin ABG Sodium ABG Glucose Oxyhemoglobin Carboxyhemoglobin Sodium Potassium Chloride Carbon Dioxide BUN Creatinine Glucose POC Glucose 147 H 177 H 138 H Hemoglobin A1c Ferritin AST ALT Alkaline Phosphatase Lactate Dehydrogenase C-Reactive Protein Total Protein Albumin Arterial Blood Glucose Coronavirus (PCR) 04/25/21 04/25/21 04/25/21 07:06 11:23 15:43 WBC MCHC RDW Lymph % (Auto) Lymph # (Auto) Seg Neutrophils % Seg Neutrophils # D-Dimer ABG pH POC ABG pO2 ABG pO2 ABG O2 Saturation ABG Oxyhemoglobin ABG Sodium ABG Glucose Oxyhemoglobin Carboxyhemoglobin Sodium Potassium Chloride Carbon Dioxide BUN Creatinine Glucose POC Glucose 147 H 169 H 227 H Hemoglobin A1c Ferritin AST ALT Alkaline Phosphatase Lactate Dehydrogenase C-Reactive Protein Total Protein Albumin Arterial Blood Glucose Coronavirus (PCR) 04/25/21 04/26/21 04/26/21 21:22 02:45 05:15 WBC MCHC RDW Lymph % (Auto) Lymph # (Auto) Seg Neutrophils % Seg Neutrophils # D-Dimer ABG pH POC ABG pO2 70.7 L ABG pO2 ABG O2 Saturation ABG Oxyhemoglobin 93.0 L ABG Sodium 132.7 L ABG Glucose 115 H Oxyhemoglobin Carboxyhemoglobin Sodium Potassium Chloride 95.8 L Carbon Dioxide 32 H BUN 20 H Creatinine Glucose 102 H POC Glucose 196 H Hemoglobin A1c Ferritin AST ALT Alkaline Phosphatase Lactate Dehydrogenase C-Reactive Protein Total Protein Albumin Arterial Blood Glucose 115 H Coronavirus (PCR) 04/26/21 04/26/21 04/26/21 11:49 16:09 21:07 WBC MCHC RDW Lymph % (Auto) Lymph # (Auto) Seg Neutrophils % Seg Neutrophils # D-Dimer ABG pH POC ABG pO2 ABG pO2 ABG O2 Saturation ABG Oxyhemoglobin ABG Sodium ABG Glucose Oxyhemoglobin Carboxyhemoglobin Sodium Potassium Chloride Carbon Dioxide BUN Creatinine Glucose POC Glucose 114 H 188 H 136 H Hemoglobin A1c Ferritin AST ALT Alkaline Phosphatase Lactate Dehydrogenase C-Reactive Protein Total Protein Albumin Arterial Blood Glucose Coronavirus (PCR) 04/27/21 04/27/21 04/28/21 17:34 22:12 08:26 WBC MCHC RDW Lymph % (Auto) Lymph # (Auto) Seg Neutrophils % Seg Neutrophils # D-Dimer ABG pH POC ABG pO2 ABG pO2 ABG O2 Saturation ABG Oxyhemoglobin ABG Sodium ABG Glucose Oxyhemoglobin Carboxyhemoglobin Sodium Potassium Chloride Carbon Dioxide BUN Creatinine Glucose POC Glucose 128 H 159 H 69 L Hemoglobin A1c Ferritin AST ALT Alkaline Phosphatase Lactate Dehydrogenase C-Reactive Protein Total Protein Albumin Arterial Blood Glucose Coronavirus (PCR) 04/28/21 04/28/21 04/29/21 12:22 21:11 06:05 WBC MCHC RDW Lymph % (Auto) Lymph # (Auto) Seg Neutrophils % Seg Neutrophils # D-Dimer ABG pH POC ABG pO2 ABG pO2 ABG O2 Saturation ABG Oxyhemoglobin ABG Sodium ABG Glucose Oxyhemoglobin Carboxyhemoglobin Sodium 132 L Potassium Chloride 94.4 L Carbon Dioxide BUN Creatinine 0.2 L D Glucose 140 H POC Glucose 141 H 171 H Hemoglobin A1c Ferritin AST ALT Alkaline Phosphatase Lactate Dehydrogenase C-Reactive Protein Total Protein Albumin Arterial Blood Glucose Coronavirus (PCR) 04/29/21 04/29/21 04/29/21 06:05 07:24 11:36 WBC MCHC 35 H RDW 15.9 H Lymph % (Auto) Lymph # (Auto) Seg Neutrophils % Seg Neutrophils # D-Dimer ABG pH POC ABG pO2 ABG pO2 ABG O2 Saturation ABG Oxyhemoglobin ABG Sodium ABG Glucose Oxyhemoglobin Carboxyhemoglobin Sodium Potassium Chloride Carbon Dioxide BUN Creatinine Glucose POC Glucose 141 H 220 H Hemoglobin A1c Ferritin AST ALT Alkaline Phosphatase Lactate Dehydrogenase C-Reactive Protein Total Protein Albumin Arterial Blood Glucose Coronavirus (PCR) 04/29/21 04/29/21 04/29/21 14:23 15:30 17:06 WBC MCHC RDW Lymph % (Auto) Lymph # (Auto) Seg Neutrophils % Seg Neutrophils # D-Dimer ABG pH POC ABG pO2 ABG pO2 52.6 L ABG O2 Saturation 86.4 L ABG Oxyhemoglobin ABG Sodium ABG Glucose Oxyhemoglobin 84.6 L Carboxyhemoglobin Sodium Potassium Chloride Carbon Dioxide BUN Creatinine Glucose POC Glucose 173 H 158 H Hemoglobin A1c Ferritin AST ALT Alkaline Phosphatase Lactate Dehydrogenase C-Reactive Protein Total Protein Albumin Arterial Blood Glucose Coronavirus (PCR) 04/29/21 04/30/21 04/30/21 21:27 07:16 08:00 WBC MCHC RDW 16.1 H Lymph % (Auto) Lymph # (Auto) Seg Neutrophils % Seg Neutrophils # D-Dimer ABG pH POC ABG pO2 ABG pO2 ABG O2 Saturation ABG Oxyhemoglobin ABG Sodium ABG Glucose Oxyhemoglobin Carboxyhemoglobin Sodium Potassium Chloride Carbon Dioxide BUN Creatinine Glucose POC Glucose 244 H 175 H Hemoglobin A1c Ferritin AST ALT Alkaline Phosphatase Lactate Dehydrogenase C-Reactive Protein Total Protein Albumin Arterial Blood Glucose Coronavirus (PCR) 04/30/21 04/30/21 04/30/21 08:00 08:00 11:03 WBC MCHC RDW Lymph % (Auto) Lymph # (Auto) Seg Neutrophils % Seg Neutrophils # D-Dimer 1796.87 H ABG pH POC ABG pO2 ABG pO2 ABG O2 Saturation ABG Oxyhemoglobin ABG Sodium ABG Glucose Oxyhemoglobin Carboxyhemoglobin Sodium 135 L Potassium Chloride 96.3 L Carbon Dioxide BUN Creatinine 0.2 L Glucose 153 H POC Glucose 183 H Hemoglobin A1c Ferritin AST 41 H ALT 76 H Alkaline Phosphatase 160 H Lactate Dehydrogenase 522 H C-Reactive Protein Total Protein 6.1 L Albumin 3.1 L Arterial Blood Glucose Coronavirus (PCR) 04/30/21 04/30/21 05/01/21 17:04 22:17 05:39 WBC MCHC RDW Lymph % (Auto) Lymph # (Auto) Seg Neutrophils % Seg Neutrophils # D-Dimer ABG pH POC ABG pO2 ABG pO2 ABG O2 Saturation ABG Oxyhemoglobin ABG Sodium ABG Glucose Oxyhemoglobin Carboxyhemoglobin Sodium 133 L Potassium Chloride 92.1 L Carbon Dioxide BUN 24 H Creatinine 0.4 L D Glucose 269 H POC Glucose 167 H 208 H Hemoglobin A1c Ferritin AST ALT 66 H Alkaline Phosphatase 142 H Lactate Dehydrogenase C-Reactive Protein Total Protein Albumin 3.2 L Arterial Blood Glucose Coronavirus (PCR) 05/01/21 05/01/21 05/01/21 05:39 05:39 07:45 WBC MCHC RDW 16.0 H Lymph % (Auto) Lymph # (Auto) Seg Neutrophils % Seg Neutrophils # D-Dimer 3984.95 H ABG pH POC ABG pO2 ABG pO2 ABG O2 Saturation ABG Oxyhemoglobin ABG Sodium ABG Glucose Oxyhemoglobin Carboxyhemoglobin Sodium Potassium Chloride Carbon Dioxide BUN Creatinine Glucose POC Glucose 229 H Hemoglobin A1c Ferritin AST ALT Alkaline Phosphatase Lactate Dehydrogenase C-Reactive Protein Total Protein Albumin Arterial Blood Glucose Coronavirus (PCR)
[2021-05-01] MEDS: INSULIN GLARGINE 100 UNITS/ML SUB-Q SCH (11:35)
--- NOTE | 2021-05-01 12:25 | Progress Note ---
Assessment and Plan Cultures: Blood culture no growth so far Covid PCR: Positive A/P: 50-year-old female past medical history obesity, GERD, hyperlipidemia presents with COVID-19 pneumonia #Severe COVID-19 pneumonia #Acute hypoxemic respiratory failure: secondary to COVID-19 infection. Currently on high flow nasal cannula/BiPAP #Obesity Recs: -Methylprednisolone/steroids per ICU team -Completed Remdesivir, s/p Actemra once -D-dimer up to 3984. Anticoagulation per hospital protocol, consider VTE evaluation -guarded prognosis Chandni Dominguez MD, FACP [facility] ([facility] O: [phone] F: [phone] Subjective Date of service: 05/01/21 Interval history: Afebrile. On BiPAP/high flow nasal cannula. D-dimer up to 3984. Objective - Exam Narrative Exam: Physical Exam (reviewed in chart to minimize risk of transmission) Constitutional: deferred Head, Ears, Nose: deferred Eyes: deferred Neck: deferred Oral: deferred Cardiovascular: deferred Respiratory: deferred GI: deferred Musculoskeletal: deferred Skin: deferred Hem/Lymphatic: deferred Psych: deferred Neurological: deferred - Constitutional Vitals: Vital Signs Temp Pulse Resp BP Pulse Ox 98.4 F 56 L 20 102/48 98 05/01/21 09:09 05/01/21 12:00 05/01/21 12:00 05/01/21 12:00 05/01/21 12:00 Temperature -Last 24 Hours Temperature 98.4 F Temperature 98.8 F Temperature 98.3 F Temperature 97.3 F Temperature 98.3 F - Labs CBC & Chem 7: 05/01/21 05:39 05/01/21 05:39 Labs: Abnormal lab results 04/30/21 04/30/21 05/01/21 Range/Units 17:04 22:17 05:39 RDW (13.2-15.2) % D-Dimer (0-234) ng/mlDDU Sodium 133 L (137-145) mmol/L Chloride 92.1 L (98-107) mmol/L BUN 24 H (7-17) mg/dL Creatinine 0.4 L D (0.6-1.2) mg/dL Glucose 269 H (65-100) mg/dL POC Glucose 167 H 208 H (70-105) mg/dL ALT 66 H (7-56) units/L Alkaline Phosphatase 142 H (35-129) units/L Albumin 3.2 L (3.9-5) g/dL 05/01/21 05/01/21 05/01/21 Range/Units 05:39 05:39 07:45 RDW 16.0 H (13.2-15.2) % D-Dimer 3984.95 H (0-234) ng/mlDDU Sodium (137-145) mmol/L Chloride (98-107) mmol/L BUN (7-17) mg/dL Creatinine (0.6-1.2) mg/dL Glucose (65-100) mg/dL POC Glucose 229 H (70-105) mg/dL ALT (7-56) units/L Alkaline Phosphatase (35-129) units/L Albumin (3.9-5) g/dL 05/01/21 Range/Units 12:10 RDW (13.2-15.2) % D-Dimer (0-234) ng/mlDDU Sodium (137-145) mmol/L Chloride (98-107) mmol/L BUN (7-17) mg/dL Creatinine (0.6-1.2) mg/dL Glucose (65-100) mg/dL POC Glucose 296 H (70-105) mg/dL ALT (7-56) units/L Alkaline Phosphatase (35-129) units/L Albumin (3.9-5) g/dL
[2021-05-01] MEDS: INSULIN LISPRO 100 UNIT/ML SUB-Q SCH ×2 (12:53→19:07)
--- NOTE | 2021-05-01 14:42 | Vascular Lab Report ---
DUPLEX DOPPLER LOWER EXTREMITY VEINS, BILATERAL INDICATION: ble swelling; ro dvt. TECHNIQUE: Duplex doppler imaging was performed through the veins of both lower extremities using ve nous compression and other maneuvers. COMPARISON: No relevant prior imaging study available. FINDINGS: Right Common femoral vein: Negative. Right Superficial femoral vein: Negative. Right Popliteal vein: Negative. Right Calf veins: Negative. Left Common femoral vein: Negative. Left Superficial femoral vein: Negative. Left Popliteal vein: Negative. Left Calf veins: Negative. Additional findings: None. IMPRESSION: No sonographic evidence for DVT in either lower extremity. Signer Name: Josh Santoyo Jr, MD Signed: 05/01/2021 2:38 PM Workstation Name: [id number]
[2021-05-01] MEDS ORDERED: AMINO ACIDS 4.25%/DEXTROSE 10% 2,000 ML IV SCH (20:00)
[2021-05-02 05:37] LABS: Hematocrit 40.6 % (30.3-42.9); Hemoglobin 13.5 gm/dl (10.1-14.3); Mean Corpuscular HGB Conc 33 % (30-34); Mean Corpuscular Volume 89 fl (79-97); Platelet Count 191 K/mm3 (140-440); Red Blood Count 4.55 M/mm3 (3.65-5.03); Red Cell Distribution Width 16.1 % (13.2-15.2)
[2021-05-02 05:54] LABS: Alanine Aminotransferase 45 units/L (7-56); Albumin 3.1 g/dL (3.9-5); Blood Urea Nitrogen 20 mg/dL (7-17); Calcium 9.1 mg/dL (8.4-10.2); Hemolysis Index 4
[2021-05-02 05:56] LABS: BUN/Creatinine Ratio 67
[2021-05-02] MEDS ORDERED: LORazepam 2 MG/ML VIAL IV ONE (06:30)
--- NOTE | 2021-05-02 08:29 | Progress Note ---
Assessment and Plan 50 y/o female with acute respiratory failure secondary to COVID19 pneumonia. 05/02/21: Continue to wean FiO2 as tolerated for sats >88%. Will continue bipap at night. Patient has no funding so not a candidate for LTACH. Given that she has been stable and not requiring the combo of HFNC and NRB, will consider moving to COVID floor. 05/01/21: Continue to wean FiO2 for sats >88%. A sat of 90 is more than acceptable and oxygen should not be increased for this unless patient desats and remains at a sat lower than 88. Bipap at night to give some form of relief and HFNC during the day. Currently on just this alone which is improvement. Ok with daily diuresis but must monitor renal function and BP closely. She was over diuresed last week and we ended up giving fluid back. Prognosis remains guarded. 04/30/21: Will start CLinimix today for nutritional support, without electrolytes. Check labs in am. Prone if able. Continue precedx for anxiety. Very very guarded prognosis. Attempting our best to not intubate. 04/29/21: Continue precedex. Continue IV solumedrol. Prone if able. Guarded prognosis. 04/28/21: Continue Precedex. Picc team attempting to place line now. Stable on Bipap. Ordered steroids IV solumedrol to start today. Prognosis remains guarded, still at very high risk for intubation. 04/27/21: Hypotension improving/improved. Hold on any further lasix dosing. Continue precedex to help with anxeity. later today please attempt HFNC with NRB if needed. Attempt to feed if possible. Steroids end today, please order solumedrol 40q8 to start tomorrow (04/28/21). guarded prognosis. 04/26/21: Hypotension today, most likely from precedex use and diuresis that I did the last several days. Will bolus again today. Consider midodrine if BP does not respond. 04/25/21: Lasix again today. Keep PRN ativan for now. Hold on precedex for now. Guarded prognosis. Labs ordered for tomorrow. 04/24/21: Lasix today. Will also start patient on low dose PRN ativan. If this does not help will then try precedex. Guarded prognosis. 04/23/21: Prone as tolerated. No lasix today. Continue decadron. Guarded prognosis. High risk for intubation and high mortality with intubation. 04/19/21: Prone as tolerated during the day and sleep prone at night. Continue IV remdesivir and steroids. Did get actemra. Guarded prognosis. 1. Daily net negative state 2. Prone if possible 3. IV remdesivir. 4. Should be a candidate for Actemra 5. IV steroids 6. Guarded Prognosis Subjective Date of service: 05/02/21 Interval history: Back on 40 and 100. Did wear bipap therapy last night. Appears calm and comfortable in the bed. BP stable Objective Vital Signs - 12hr 05/01/21 05/01/21 05/01/21 20:30 20:45 20:49 Temperature Pulse Rate 90 76 Pulse Rate [ From Monitor] Respiratory 25 H 29 H Rate Blood Pressure 109/67 103/53 O2 Sat by Pulse 94 96 95 Oximetry 05/01/21 05/01/21 05/01/21 21:00 21:15 21:30 Temperature Pulse Rate 74 68 72 Pulse Rate [ From Monitor] Respiratory 27 H 25 H 28 H Rate Blood Pressure 104/51 105/62 105/59 O2 Sat by Pulse 96 97 94 Oximetry 05/01/21 05/01/21 05/01/21 21:45 22:00 22:15 Temperature Pulse Rate 62 61 59 L Pulse Rate [ From Monitor] Respiratory 21 21 21 Rate Blood Pressure 101/51 97/48 95/52 O2 Sat by Pulse 97 95 97 Oximetry 05/01/21 05/01/21 05/01/21 22:30 22:45 23:00 Temperature Pulse Rate 57 L 74 71 Pulse Rate [ From Monitor] Respiratory 21 27 H 27 H Rate Blood Pressure 102/50 101/63 112/58 O2 Sat by Pulse 96 92 92 Oximetry 05/01/21 05/01/21 05/01/21 23:15 23:30 23:45 Temperature Pulse Rate 60 56 L 56 L Pulse Rate [ From Monitor] Respiratory 26 H 22 21 Rate Blood Pressure 101/53 94/47 102/55 O2 Sat by Pulse 95 95 97 Oximetry 05/02/21 05/02/21 05/02/21 00:00 00:15 00:30 Temperature 98.0 F Pulse Rate 54 L 58 L 57 L Pulse Rate [ 74 From Monitor] Respiratory 23 22 21 Rate Blood Pressure 95/48 92/52 95/50 O2 Sat by Pulse 96 97 97 Oximetry 05/02/21 05/02/21 05/02/21 00:45 01:00 01:15 Temperature Pulse Rate 56 L 56 L 79 Pulse Rate [ From Monitor] Respiratory 20 22 24 Rate Blood Pressure 100/51 96/53 116/67 O2 Sat by Pulse 95 98 88 Oximetry 05/02/21 05/02/21 05/02/21 01:30 01:45 02:00 Temperature Pulse Rate 66 58 L 56 L Pulse Rate [ From Monitor] Respiratory 27 H 21 24 Rate Blood Pressure 105/50 96/53 99/54 O2 Sat by Pulse 97 96 94 Oximetry 05/02/21 05/02/21 05/02/21 02:06 02:15 02:30 Temperature Pulse Rate 56 L 56 L Pulse Rate [ From Monitor] Respiratory 22 21 Rate Blood Pressure 94/54 98/52 O2 Sat by Pulse 95 96 97 Oximetry 05/02/21 05/02/21 05/02/21 02:45 03:00 03:15 Temperature Pulse Rate 57 L 57 L 57 L Pulse Rate [ From Monitor] Respiratory 20 22 22 Rate Blood Pressure 90/51 98/53 92/51 O2 Sat by Pulse 97 97 97 Oximetry 05/02/21 05/02/21 05/02/21 03:30 03:36 03:45 Temperature 98.7 F Pulse Rate 56 L 57 L Pulse Rate [ From Monitor] Respiratory 21 21 Rate Blood Pressure 101/52 96/49 O2 Sat by Pulse 98 98 Oximetry 05/02/21 05/02/21 05/02/21 04:00 04:15 04:30 Temperature Pulse Rate 56 L 57 L 55 L Pulse Rate [ 74 From Monitor] Respiratory 21 23 22 Rate Blood Pressure 102/50 101/50 95/51 O2 Sat by Pulse 97 99 97 Oximetry 05/02/21 05/02/21 05/02/21 04:45 05:00 05:15 Temperature Pulse Rate 56 L 55 L 55 L Pulse Rate [ From Monitor] Respiratory 21 22 22 Rate Blood Pressure 92/50 100/58 97/48 O2 Sat by Pulse 99 98 97 Oximetry 05/02/21 05/02/21 05/02/21 05:30 05:45 06:00 Temperature Pulse Rate 57 L 56 L 111 H Pulse Rate [ From Monitor] Respiratory 21 21 31 H Rate Blood Pressure 100/55 100/56 125/80 O2 Sat by Pulse 98 99 60 L Oximetry 05/02/21 05/02/21 05/02/21 06:15 06:30 06:46 Temperature Pulse Rate 100 H 115 H 112 H Pulse Rate [ From Monitor] Respiratory 30 H 31 H 44 H Rate Blood Pressure 133/75 138/79 133/82 O2 Sat by Pulse 84 90 94 Oximetry 05/02/21 05/02/21 05/02/21 07:00 07:15 07:30 Temperature Pulse Rate 89 82 84 Pulse Rate [ From Monitor] Respiratory 33 H 37 H 39 H Rate Blood Pressure 103/49 107/58 117/51 O2 Sat by Pulse 97 98 99 Oximetry 05/02/21 08:00 Temperature Pulse Rate Pulse Rate [ From Monitor] Respiratory Rate Blood Pressure O2 Sat by Pulse 92 Oximetry Constitutional: no acute distress, other (on hiflo 100%) Eyes: non-icteric, other (sl injected) ENT: oropharynx moist, other (white plaques on tongue) Ascultation: Bilateral: diminished breath sounds Cardiovascular: regular rate and rhythm Gastrointestinal: normoactive bowel sounds, soft, non-tender, non-distended Extremities: no cyanosis Psychiatric: anxious CBC and BMP: 05/02/21 04:55 05/02/21 04:55 ABG, PT/INR, D-dimer: ABG ABG pH 7.407 pH Units (7.350-7.450) 04/29/21 14:23 POC ABG pCO2 45.5 mmHg (32.0-48.0) 04/26/21 02:45 ABG pCO2 42.2 mm Hg 04/29/21 14:23 POC ABG pO2 70.7 mmHg (83-108) L 04/26/21 02:45 ABG pO2 52.6 mm Hg (80.0-90.0) L 04/29/21 14:23 POC ABG HCO3 28.7 04/26/21 02:45 ABG O2 Saturation 86.4 % (95.0-99.0) L 04/29/21 14:23 PT/INR, D-dimer D-Dimer 1401.08 ng/mlDDU (0-234) H 05/02/21 04:55 Abnormal lab findings: Abnormal Labs 04/16/21 04/16/21 04/16/21 11:42 11:42 11:42 WBC MCHC RDW 16.1 H Lymph % (Auto) 7.8 L Lymph # (Auto) 0.8 L Seg Neutrophils % 87.7 H Seg Neutrophils # 8.5 H D-Dimer 338.70 H ABG pH POC ABG pO2 ABG pO2 ABG O2 Saturation ABG Oxyhemoglobin ABG Sodium ABG Glucose Oxyhemoglobin Carboxyhemoglobin Sodium Potassium Chloride Carbon Dioxide BUN Creatinine Glucose 194 H POC Glucose Hemoglobin A1c Ferritin AST ALT Alkaline Phosphatase Lactate Dehydrogenase C-Reactive Protein Total Protein 8.4 H Albumin 3.8 L Arterial Blood Glucose Coronavirus (PCR) 04/16/21 04/16/21 04/17/21 11:42 11:42 03:50 WBC MCHC RDW 16.0 H Lymph % (Auto) 7.7 L Lymph # (Auto) 0.6 L Seg Neutrophils % 89.8 H Seg Neutrophils # D-Dimer ABG pH POC ABG pO2 ABG pO2 ABG O2 Saturation ABG Oxyhemoglobin ABG Sodium ABG Glucose Oxyhemoglobin Carboxyhemoglobin Sodium Potassium Chloride Carbon Dioxide BUN Creatinine Glucose 195 H POC Glucose Hemoglobin A1c Ferritin 254.3 H AST ALT Alkaline Phosphatase Lactate Dehydrogenase 359 H C-Reactive Protein 15.20 H Total Protein Albumin Arterial Blood Glucose Coronavirus (PCR) 04/17/21 04/17/21 04/17/21 03:50 08:26 08:26 WBC MCHC RDW Lymph % (Auto) Lymph # (Auto) Seg Neutrophils % Seg Neutrophils # D-Dimer 262.48 H ABG pH POC ABG pO2 ABG pO2 ABG O2 Saturation ABG Oxyhemoglobin ABG Sodium ABG Glucose Oxyhemoglobin Carboxyhemoglobin Sodium Potassium Chloride Carbon Dioxide BUN 20 H Creatinine 0.5 L Glucose 249 H 225 H POC Glucose Hemoglobin A1c Ferritin AST ALT Alkaline Phosphatase Lactate Dehydrogenase 338 H C-Reactive Protein 17.20 H Total Protein Albumin 3.2 L Arterial Blood Glucose Coronavirus (PCR) 04/17/21 04/17/21 04/17/21 08:26 15:04 Unknown WBC MCHC RDW Lymph % (Auto) Lymph # (Auto) Seg Neutrophils % Seg Neutrophils # D-Dimer ABG pH POC ABG pO2 ABG pO2 ABG O2 Saturation ABG Oxyhemoglobin ABG Sodium ABG Glucose Oxyhemoglobin Carboxyhemoglobin Sodium Potassium Chloride Carbon Dioxide BUN 20 H Creatinine 0.5 L Glucose 246 H POC Glucose Hemoglobin A1c Ferritin 392.0 H AST ALT Alkaline Phosphatase Lactate Dehydrogenase C-Reactive Protein Total Protein 8.3 H Albumin 3.1 L Arterial Blood Glucose Coronavirus (PCR) Positive A 04/18/21 04/18/21 04/18/21 05:06 05:06 07:36 WBC 11.6 H MCHC RDW 16.1 H Lymph % (Auto) Lymph # (Auto) Seg Neutrophils % Seg Neutrophils # D-Dimer ABG pH POC ABG pO2 ABG pO2 ABG O2 Saturation ABG Oxyhemoglobin ABG Sodium ABG Glucose Oxyhemoglobin Carboxyhemoglobin Sodium Potassium 5.2 H Chloride Carbon Dioxide BUN 22 H Creatinine 0.5 L Glucose 315 H POC Glucose Hemoglobin A1c 8.5 H Ferritin AST ALT Alkaline Phosphatase Lactate Dehydrogenase C-Reactive Protein Total Protein Albumin 3.3 L Arterial Blood Glucose Coronavirus (PCR) 04/18/21 04/18/21 04/18/21 11:59 16:43 23:24 WBC MCHC RDW Lymph % (Auto) Lymph # (Auto) Seg Neutrophils % Seg Neutrophils # D-Dimer ABG pH POC ABG pO2 ABG pO2 ABG O2 Saturation ABG Oxyhemoglobin ABG Sodium ABG Glucose Oxyhemoglobin Carboxyhemoglobin Sodium Potassium Chloride Carbon Dioxide BUN Creatinine Glucose POC Glucose 284 H 273 H 290 H Hemoglobin A1c Ferritin AST ALT Alkaline Phosphatase Lactate Dehydrogenase C-Reactive Protein Total Protein Albumin Arterial Blood Glucose Coronavirus (PCR) 04/19/21 04/19/21 04/19/21 04:19 04:19 08:10 WBC MCHC RDW 15.7 H Lymph % (Auto) Lymph # (Auto) Seg Neutrophils % Seg Neutrophils # D-Dimer ABG pH POC ABG pO2 ABG pO2 ABG O2 Saturation ABG Oxyhemoglobin ABG Sodium ABG Glucose Oxyhemoglobin Carboxyhemoglobin Sodium Potassium Chloride Carbon Dioxide BUN 27 H Creatinine 0.4 L Glucose 184 H POC Glucose 194 H Hemoglobin A1c Ferritin AST ALT Alkaline Phosphatase Lactate Dehydrogenase C-Reactive Protein Total Protein Albumin 3.1 L Arterial Blood Glucose Coronavirus (PCR) 04/19/21 04/19/21 04/19/21 11:38 16:25 22:04 WBC MCHC RDW Lymph % (Auto) Lymph # (Auto) Seg Neutrophils % Seg Neutrophils # D-Dimer ABG pH POC ABG pO2 ABG pO2 ABG O2 Saturation ABG Oxyhemoglobin ABG Sodium ABG Glucose Oxyhemoglobin Carboxyhemoglobin Sodium Potassium Chloride Carbon Dioxide BUN Creatinine Glucose POC Glucose 224 H 297 H 251 H Hemoglobin A1c Ferritin AST ALT Alkaline Phosphatase Lactate Dehydrogenase C-Reactive Protein Total Protein Albumin Arterial Blood Glucose Coronavirus (PCR) 04/20/21 04/20/21 04/20/21 05:28 08:43 16:21 WBC MCHC RDW Lymph % (Auto) Lymph # (Auto) Seg Neutrophils % Seg Neutrophils # D-Dimer ABG pH POC ABG pO2 ABG pO2 ABG O2 Saturation ABG Oxyhemoglobin ABG Sodium ABG Glucose Oxyhemoglobin Carboxyhemoglobin Sodium Potassium Chloride Carbon Dioxide BUN 27 H Creatinine Glucose 192 H POC Glucose 173 H 253 H Hemoglobin A1c Ferritin AST ALT Alkaline Phosphatase Lactate Dehydrogenase C-Reactive Protein Total Protein Albumin 3.0 L Arterial Blood Glucose Coronavirus (PCR) 04/21/21 04/21/21 04/21/21 07:58 12:05 16:08 WBC MCHC RDW Lymph % (Auto) Lymph # (Auto) Seg Neutrophils % Seg Neutrophils # D-Dimer ABG pH POC ABG pO2 ABG pO2 ABG O2 Saturation ABG Oxyhemoglobin ABG Sodium ABG Glucose Oxyhemoglobin Carboxyhemoglobin Sodium Potassium Chloride Carbon Dioxide BUN Creatinine Glucose POC Glucose 140 H 252 H 214 H Hemoglobin A1c Ferritin AST ALT Alkaline Phosphatase Lactate Dehydrogenase C-Reactive Protein Total Protein Albumin Arterial Blood Glucose Coronavirus (PCR) 04/21/21 04/22/21 04/22/21 21:42 08:37 12:01 WBC MCHC RDW Lymph % (Auto) Lymph # (Auto) Seg Neutrophils % Seg Neutrophils # D-Dimer ABG pH 7.457 H POC ABG pO2 49.4 L ABG pO2 ABG O2 Saturation ABG Oxyhemoglobin 85.6 L ABG Sodium ABG Glucose 121 H Oxyhemoglobin Carboxyhemoglobin 0.3 L Sodium Potassium Chloride Carbon Dioxide BUN Creatinine Glucose POC Glucose 162 H 227 H Hemoglobin A1c Ferritin AST ALT Alkaline Phosphatase Lactate Dehydrogenase C-Reactive Protein Total Protein Albumin Arterial Blood Glucose 121 H Coronavirus (PCR) 04/22/21 04/22/21 04/23/21 16:26 22:23 04:52 WBC MCHC RDW 15.7 H Lymph % (Auto) Lymph # (Auto) Seg Neutrophils % Seg Neutrophils # D-Dimer ABG pH POC ABG pO2 ABG pO2 ABG O2 Saturation ABG Oxyhemoglobin ABG Sodium ABG Glucose Oxyhemoglobin Carboxyhemoglobin Sodium Potassium Chloride Carbon Dioxide BUN Creatinine Glucose POC Glucose 200 H 136 H Hemoglobin A1c Ferritin AST ALT Alkaline Phosphatase Lactate Dehydrogenase C-Reactive Protein Total Protein Albumin Arterial Blood Glucose Coronavirus (PCR) 04/23/21 04/23/21 04/23/21 04:52 12:06 17:41 WBC MCHC RDW Lymph % (Auto) Lymph # (Auto) Seg Neutrophils % Seg Neutrophils # D-Dimer ABG pH POC ABG pO2 ABG pO2 ABG O2 Saturation ABG Oxyhemoglobin ABG Sodium ABG Glucose Oxyhemoglobin Carboxyhemoglobin Sodium 136 L Potassium Chloride 97.7 L Carbon Dioxide BUN 23 H Creatinine Glucose 101 H POC Glucose 202 H 169 H Hemoglobin A1c Ferritin AST 46 H ALT Alkaline Phosphatase Lactate Dehydrogenase C-Reactive Protein Total Protein Albumin 3.3 L Arterial Blood Glucose Coronavirus (PCR) 04/23/21 04/24/21 04/24/21 23:08 05:17 08:38 WBC MCHC RDW Lymph % (Auto) Lymph # (Auto) Seg Neutrophils % Seg Neutrophils # D-Dimer ABG pH POC ABG pO2 ABG pO2 ABG O2 Saturation ABG Oxyhemoglobin ABG Sodium ABG Glucose Oxyhemoglobin Carboxyhemoglobin Sodium Potassium Chloride Carbon Dioxide BUN Creatinine Glucose POC Glucose 111 H 108 H 126 H Hemoglobin A1c Ferritin AST ALT Alkaline Phosphatase Lactate Dehydrogenase C-Reactive Protein Total Protein Albumin Arterial Blood Glucose Coronavirus (PCR) 04/24/21 04/24/21 04/24/21 11:54 17:57 21:23 WBC MCHC RDW Lymph % (Auto) Lymph # (Auto) Seg Neutrophils % Seg Neutrophils # D-Dimer ABG pH POC ABG pO2 ABG pO2 ABG O2 Saturation ABG Oxyhemoglobin ABG Sodium ABG Glucose Oxyhemoglobin Carboxyhemoglobin Sodium Potassium Chloride Carbon Dioxide BUN Creatinine Glucose POC Glucose 147 H 177 H 138 H Hemoglobin A1c Ferritin AST ALT Alkaline Phosphatase Lactate Dehydrogenase C-Reactive Protein Total Protein Albumin Arterial Blood Glucose Coronavirus (PCR) 04/25/21 04/25/21 04/25/21 07:06 11:23 15:43 WBC MCHC RDW Lymph % (Auto) Lymph # (Auto) Seg Neutrophils % Seg Neutrophils # D-Dimer ABG pH POC ABG pO2 ABG pO2 ABG O2 Saturation ABG Oxyhemoglobin ABG Sodium ABG Glucose Oxyhemoglobin Carboxyhemoglobin Sodium Potassium Chloride Carbon Dioxide BUN Creatinine Glucose POC Glucose 147 H 169 H 227 H Hemoglobin A1c Ferritin AST ALT Alkaline Phosphatase Lactate Dehydrogenase C-Reactive Protein Total Protein Albumin Arterial Blood Glucose Coronavirus (PCR) 04/25/21 04/26/21 04/26/21 21:22 02:45 05:15 WBC MCHC RDW Lymph % (Auto) Lymph # (Auto) Seg Neutrophils % Seg Neutrophils # D-Dimer ABG pH POC ABG pO2 70.7 L ABG pO2 ABG O2 Saturation ABG Oxyhemoglobin 93.0 L ABG Sodium 132.7 L ABG Glucose 115 H Oxyhemoglobin Carboxyhemoglobin Sodium Potassium Chloride 95.8 L Carbon Dioxide 32 H BUN 20 H Creatinine Glucose 102 H POC Glucose 196 H Hemoglobin A1c Ferritin AST ALT Alkaline Phosphatase Lactate Dehydrogenase C-Reactive Protein Total Protein Albumin Arterial Blood Glucose 115 H Coronavirus (PCR) 04/26/21 04/26/21 04/26/21 11:49 16:09 21:07 WBC MCHC RDW Lymph % (Auto) Lymph # (Auto) Seg Neutrophils % Seg Neutrophils # D-Dimer ABG pH POC ABG pO2 ABG pO2 ABG O2 Saturation ABG Oxyhemoglobin ABG Sodium ABG Glucose Oxyhemoglobin Carboxyhemoglobin Sodium Potassium Chloride Carbon Dioxide BUN Creatinine Glucose POC Glucose 114 H 188 H 136 H Hemoglobin A1c Ferritin AST ALT Alkaline Phosphatase Lactate Dehydrogenase C-Reactive Protein Total Protein Albumin Arterial Blood Glucose Coronavirus (PCR) 04/27/21 04/27/21 04/28/21 17:34 22:12 08:26 WBC MCHC RDW Lymph % (Auto) Lymph # (Auto) Seg Neutrophils % Seg Neutrophils # D-Dimer ABG pH POC ABG pO2 ABG pO2 ABG O2 Saturation ABG Oxyhemoglobin ABG Sodium ABG Glucose Oxyhemoglobin Carboxyhemoglobin Sodium Potassium Chloride Carbon Dioxide BUN Creatinine Glucose POC Glucose 128 H 159 H 69 L Hemoglobin A1c Ferritin AST ALT Alkaline Phosphatase Lactate Dehydrogenase C-Reactive Protein Total Protein Albumin Arterial Blood Glucose Coronavirus (PCR) 04/28/21 04/28/21 04/29/21 12:22 21:11 06:05 WBC MCHC RDW Lymph % (Auto) Lymph # (Auto) Seg Neutrophils % Seg Neutrophils # D-Dimer ABG pH POC ABG pO2 ABG pO2 ABG O2 Saturation ABG Oxyhemoglobin ABG Sodium ABG Glucose Oxyhemoglobin Carboxyhemoglobin Sodium 132 L Potassium Chloride 94.4 L Carbon Dioxide BUN Creatinine 0.2 L D Glucose 140 H POC Glucose 141 H 171 H Hemoglobin A1c Ferritin AST ALT Alkaline Phosphatase Lactate Dehydrogenase C-Reactive Protein Total Protein Albumin Arterial Blood Glucose Coronavirus (PCR) 04/29/21 04/29/21 04/29/21 06:05 07:24 11:36 WBC MCHC 35 H RDW 15.9 H Lymph % (Auto) Lymph # (Auto) Seg Neutrophils % Seg Neutrophils # D-Dimer ABG pH POC ABG pO2 ABG pO2 ABG O2 Saturation ABG Oxyhemoglobin ABG Sodium ABG Glucose Oxyhemoglobin Carboxyhemoglobin Sodium Potassium Chloride Carbon Dioxide BUN Creatinine Glucose POC Glucose 141 H 220 H Hemoglobin A1c Ferritin AST ALT Alkaline Phosphatase Lactate Dehydrogenase C-Reactive Protein Total Protein Albumin Arterial Blood Glucose Coronavirus (PCR) 04/29/21 04/29/21 04/29/21 14:23 15:30 17:06 WBC MCHC RDW Lymph % (Auto) Lymph # (Auto) Seg Neutrophils % Seg Neutrophils # D-Dimer ABG pH POC ABG pO2 ABG pO2 52.6 L ABG O2 Saturation 86.4 L ABG Oxyhemoglobin ABG Sodium ABG Glucose Oxyhemoglobin 84.6 L Carboxyhemoglobin Sodium Potassium Chloride Carbon Dioxide BUN Creatinine Glucose POC Glucose 173 H 158 H Hemoglobin A1c Ferritin AST ALT Alkaline Phosphatase Lactate Dehydrogenase C-Reactive Protein Total Protein Albumin Arterial Blood Glucose Coronavirus (PCR) 04/29/21 04/30/21 04/30/21 21:27 07:16 08:00 WBC MCHC RDW 16.1 H Lymph % (Auto) Lymph # (Auto) Seg Neutrophils % Seg Neutrophils # D-Dimer ABG pH POC ABG pO2 ABG pO2 ABG O2 Saturation ABG Oxyhemoglobin ABG Sodium ABG Glucose Oxyhemoglobin Carboxyhemoglobin Sodium Potassium Chloride Carbon Dioxide BUN Creatinine Glucose POC Glucose 244 H 175 H Hemoglobin A1c Ferritin AST ALT Alkaline Phosphatase Lactate Dehydrogenase C-Reactive Protein Total Protein Albumin Arterial Blood Glucose Coronavirus (PCR) 04/30/21 04/30/21 04/30/21 08:00 08:00 11:03 WBC MCHC RDW Lymph % (Auto) Lymph # (Auto) Seg Neutrophils % Seg Neutrophils # D-Dimer 1796.87 H ABG pH POC ABG pO2 ABG pO2 ABG O2 Saturation ABG Oxyhemoglobin ABG Sodium ABG Glucose Oxyhemoglobin Carboxyhemoglobin Sodium 135 L Potassium Chloride 96.3 L Carbon Dioxide BUN Creatinine 0.2 L Glucose 153 H POC Glucose 183 H Hemoglobin A1c Ferritin AST 41 H ALT 76 H Alkaline Phosphatase 160 H Lactate Dehydrogenase 522 H C-Reactive Protein Total Protein 6.1 L Albumin 3.1 L Arterial Blood Glucose Coronavirus (PCR) 04/30/21 04/30/21 05/01/21 17:04 22:17 05:39 WBC MCHC RDW Lymph % (Auto) Lymph # (Auto) Seg Neutrophils % Seg Neutrophils # D-Dimer ABG pH POC ABG pO2 ABG pO2 ABG O2 Saturation ABG Oxyhemoglobin ABG Sodium ABG Glucose Oxyhemoglobin Carboxyhemoglobin Sodium 133 L Potassium Chloride 92.1 L Carbon Dioxide BUN 24 H Creatinine 0.4 L D Glucose 269 H POC Glucose 167 H 208 H Hemoglobin A1c Ferritin AST ALT 66 H Alkaline Phosphatase 142 H Lactate Dehydrogenase C-Reactive Protein Total Protein Albumin 3.2 L Arterial Blood Glucose Coronavirus (PCR) 05/01/21 05/01/21 05/01/21 05:39 05:39 07:45 WBC MCHC RDW 16.0 H Lymph % (Auto) Lymph # (Auto) Seg Neutrophils % Seg Neutrophils # D-Dimer 3984.95 H ABG pH POC ABG pO2 ABG pO2 ABG O2 Saturation ABG Oxyhemoglobin ABG Sodium ABG Glucose Oxyhemoglobin Carboxyhemoglobin Sodium Potassium Chloride Carbon Dioxide BUN Creatinine Glucose POC Glucose 229 H Hemoglobin A1c Ferritin AST ALT Alkaline Phosphatase Lactate Dehydrogenase C-Reactive Protein Total Protein Albumin Arterial Blood Glucose Coronavirus (PCR) 05/01/21 05/01/21 05/01/21 12:10 15:46 21:06 WBC MCHC RDW Lymph % (Auto) Lymph # (Auto) Seg Neutrophils % Seg Neutrophils # D-Dimer ABG pH POC ABG pO2 ABG pO2 ABG O2 Saturation ABG Oxyhemoglobin ABG Sodium ABG Glucose Oxyhemoglobin Carboxyhemoglobin Sodium Potassium Chloride Carbon Dioxide BUN Creatinine Glucose POC Glucose 296 H 279 H 232 H Hemoglobin A1c Ferritin AST ALT Alkaline Phosphatase Lactate Dehydrogenase C-Reactive Protein Total Protein Albumin Arterial Blood Glucose Coronavirus (PCR) 05/02/21 05/02/21 05/02/21 04:55 04:55 04:55 WBC MCHC RDW 16.1 H Lymph % (Auto) Lymph # (Auto) Seg Neutrophils % Seg Neutrophils # D-Dimer 1401.08 H ABG pH POC ABG pO2 ABG pO2 ABG O2 Saturation ABG Oxyhemoglobin ABG Sodium ABG Glucose Oxyhemoglobin Carboxyhemoglobin Sodium 131 L Potassium Chloride 95.5 L Carbon Dioxide BUN 20 H Creatinine 0.3 L Glucose 288 H POC Glucose Hemoglobin A1c Ferritin AST ALT Alkaline Phosphatase Lactate Dehydrogenase C-Reactive Protein Total Protein 6.0 L Albumin 3.1 L Arterial Blood Glucose Coronavirus (PCR) 05/02/21 07:53 WBC MCHC RDW Lymph % (Auto) Lymph # (Auto) Seg Neutrophils % Seg Neutrophils # D-Dimer ABG pH POC ABG pO2 ABG pO2 ABG O2 Saturation ABG Oxyhemoglobin ABG Sodium ABG Glucose Oxyhemoglobin Carboxyhemoglobin Sodium Potassium Chloride Carbon Dioxide BUN Creatinine Glucose POC Glucose 180 H Hemoglobin A1c Ferritin AST ALT Alkaline Phosphatase Lactate Dehydrogenase C-Reactive Protein Total Protein Albumin Arterial Blood Glucose Coronavirus (PCR)
[2021-05-02] MEDS: HEPARIN 5,000 UNIT/1 ML VIAL SUB-Q SCH ×3 (09:58→22:34)
[2021-05-02] MEDS: FAMOTIDINE 20 MG TAB PO SCH ×2 (09:58→22:26)
[2021-05-02] MEDS: ZINC SULFATE 220 MG CAP PO SCH ×3 (09:59→22:34)
[2021-05-02] MEDS: DOCUSATE SODIUM 100 MG CAP PO SCH ×3 (09:59→22:34)
[2021-05-02] MEDS: ASCORBIC ACID 500 MG TAB PO SCH (09:59)
[2021-05-02] MEDS: INSULIN GLARGINE 100 UNITS/ML SUB-Q SCH (09:59)
[2021-05-02] MEDS: CHOLECALCIFEROL (VIT D3) 1000 UNIT (25 mcg) TAB PO SCH (09:59)
[2021-05-02] MEDS ORDERED: MULTIVITAMIN / MINERAL ORAL LIQUID 15 ML PO SCH (10:00)
[2021-05-02] MEDS: LORazepam 2 MG/ML VIAL IV PRN ×3 (10:10→22:41)
[2021-05-02] MEDS: methylPREDNISolone Sod Succinate 40 MG/1 ML INJ IV SCH ×4 (10:17→22:34)
[2021-05-02] MEDS: INSULIN LISPRO 100 UNIT/ML SUB-Q SCH ×3 (10:18→18:31)
--- NOTE | 2021-05-02 10:19 | Progress Note ---
Assessment and Plan Assessment and plan: NEURO- acute pain; anxiety PRN tylenol dex for comfort- off follows commands and RAY PRN pain meds citizen of [place] speaking right eye- viral conjunctivitis vs subconjunctival hemorrhage continue to monitor started on ofloxacin x 5 days artificial tears has not provided relief note that when pt is on bipap she co ringing in her ears family updated on plan of care CV- ST SR-ST off pressors MAP goal 65 MAP has been in 70's no echo on record Resp- acute hypoxic resp failure due to covid19 tolerating airvo 90%/40L today- conversant and texting on her cell phone see RT notes remains high risk for intubation ABG noted albuterol PRN trend xray findings GI- risk for protein gisella malnutrition given inc metabolic demand with resp insufficiency TPN started to poor po intake while on bipap d/c when taking adequate cals to meet metabolic need (given resp status) clears OK with aspiration precautions nutrition following bowel reg- colace BM 04/29 bowel reg. inc to include senna and miralax pepcid - volume overload; hypona; hypoMg net neg 276 ml over 24 hours trend cr replace electrolytes as needed follw Na vit D replacement AM labs ordered Heme- coagulopathy of covid; on AC VTE SQH trend CBC hgb goal over 7 no bleeding on exam BLE u/s neg for DVT has not had CT ro PE [id number] pna; sepsis; viral conjunctivitis right eye zinc/vitC/D methylpred 40m gQ8 continues wean as appropriate pharmacy following ID following completed actemra and remdesovir afebrile trend temp and WBC curve follow culture data r eye conjunctival redness- started ofloxacin x 5 d Endo- hyperglycemia; obesity glargine HS SSI AC/HS Admit 04/16 from ER 50 YO Female with GERD, Obesity, HLD presents to ED for evaluation. Patient reports "I cannot breathe". Patient states that she has experienced subjective fever, shortness of breath, malaise, body aches, dry cough, and shortness of breath over the past 1 week with progressively worsening symptoms over the same timeframe. EMS was notified and upon arrival the patient was found to be in distress and subsequent transported to [facility] for further care and evaluation of the aforementioned symptoms. The patient was seen and evaluated in the emergency department. All lab and imaging studies reviewed. Patient found to have a pulse oximetry of 86% with exertion on room air which is consistent with acute hypoxemic respiratory failure. Patient with chest x-ray which revealed bilateral pneumonia. Patient admitted to medical floor and initiated him on pneumonia protocol as well as coronavirus protocol. Patient knowledges fever but denies chills, chest pain, palpitation, skin rash, recent ill contacts, or known exposure to COVID-19. Prior admission on 01/21/2017 reviewed. All medication listed at time of admission has been reconciled. Patient is unvaccinated for coronavirus infection. CXR: Bilateral Pneumonia 04/17: Patient seen and examined, still uncomfortable with Hypoxic respiratory failure and on oxygen, will continue to steroids therapy, start patient on Remdesivir, ID consulted, Pulmonary consult placed. 04/18: Patient seen and examined, she is currently being changed to High flow NC due to worsening HYPOXIA, will transfer to IMCU, Pulmonary and ID following. Will also give a dose of Lasix today. Monitor Inflammatory markers. 04/19: Patient seen and examined still on high flow due to hypoxia. Appears a bit more comfortable today than yesterday. Cough has decreased in frequency. We will continue high dose Dexameathasone to complete 10 days. continue on Remdesivir 200 mg IV q day x 1 followed by 100 mg IV q day x 4 days -Obtain q48-72h inflammatory markers - ferritin, Ddimer, CRP, LDH Will also give lasix daily for the next 3 days and monitor renal function. Family updated. Continue prone positioning as tolerated 04/20: Patient has some desaturation episodes yesterday was placed on BiPAP. Discussed with ICU team for bed availability for patient to be transferred up. Continue prone position as tolerated. 04/21: Patient remains with profound hypoxia secondary to COVID pneumonia. -Continue steroids -Continue remedesir -S/P Actmera 04/22: Patient remains on steroids and remdesivir. ABG shows persistent hypoxia. We will continue current management additional trial of Lasix for the next few days to see if any improvement. Monitor inflammatory markers as needed. Prognosis is guarded remains on high flow 04/23; patient was treated with remdesivir and Actemra. Continue steroid. Patient's prognosis is guarded. 04/24; patient is on steroid. Patient is currently on BiPAP. Prognosis is guarded. Pulmonary is following. Patient was given Lasix and Ativan. 04/25; continue steroid. Patient was on 40 L of high flow oxygen with saturation was 88%. Pulmonary is following. Prognosis is guarded. Patient was given lasix and ativan. 04/26; patient is on BiPAP and Precedex. Prognosis is guarded. 04/27; patient is on BiPAP and Precedex. Patient will finish steroid today and will start on Solu-Medrol tomorrow. Prognosis is guarded. Blood pressure is better today. Hold Lasix. 04/28 patient is on 100 Fio2 via BIPAP. moderately dyspneic, pulmonary note reviewed, lab results reviewed 04/29 no acute events- see systems review above 04/30 no acute events overnight - on airvo today- TPN started -see systems review above 05-01 no acute events overnight- tolerating airvo- see systems review above 05-02 no acute events overnight; tolerating airvo this AM- see systems review above 30 MINUTES NON CRITICAL CARE PLAN TRANSFER TO FLOOR TODAY Disposition Plan: TRANSFER TO FLOOR TODAY Total Time Spent with Patient (Minutes): 30 NON CRITICAL CARE History Interval history: no acute events overnight tolerating airvo today Hospitalist Physical - Constitutional Vitals: Temp Pulse Resp BP Pulse Ox 97.9 F 84 39 H 117/51 92 05/02/21 08:00 05/02/21 07:30 05/02/21 07:30 05/02/21 07:30 05/02/21 08:00 General appearance: Present: mild distress - EENT Eyes: Present: PERRL, EOM intact ENT: clear oral mucosa - Neck Neck: Present: supple, normal ROM - Respiratory Respiratory effort: normal - Cardiovascular Rhythm: regular Heart Sounds: Present: S1 & S2 Peripheral Pulses: within normal limits - Abdominal General gastrointestinal: soft, non-tender - Integumentary Integumentary: Present: clear, warm, dry - Psychiatric Psychiatric: appropriate mood/affect - Neurologic Neurologic: CNII-XII intact - Allied Health Allied health notes reviewed: nursing, social work, case management Results - Labs CBC & Chem 7: 05/02/21 04:55 05/02/21 04:55 Labs: Laboratory Last Values WBC 7.7 K/mm3 (4.5-11.0) 05/02/21 04:55 RBC 4.55 M/mm3 (3.65-5.03) 05/02/21 04:55 Hgb 13.5 gm/dl (10.1-14.3) 05/02/21 04:55 Hct 40.6 % (30.3-42.9) 05/02/21 04:55 MCV 89 fl (79-97) 05/02/21 04:55 MCH 30 pg (28-32) 05/02/21 04:55 MCHC 33 % (30-34) 05/02/21 04:55 RDW 16.1 % (13.2-15.2) H 05/02/21 04:55 Plt Count 191 K/mm3 (140-440) 05/02/21 04:55 Lymph % (Auto) 7.7 % (13.4-35.0) L 04/17/21 03:50 [place] % (Auto) 2.5 % (0.0-7.3) 04/17/21 03:50 Eos % (Auto) 0.0 % (0.0-4.3) 04/17/21 03:50 Baso % (Auto) 0.0 % (0.0-1.8) 04/17/21 03:50 Lymph # (Auto) 0.6 K/mm3 (1.2-5.4) L 04/17/21 03:50 [place] # (Auto) 0.2 K/mm3 (0.0-0.8) 04/17/21 03:50 Eos # (Auto) 0.0 K/mm3 (0.0-0.4) 04/17/21 03:50 Baso # (Auto) 0.0 K/mm3 (0.0-0.1) 04/17/21 03:50 Seg Neutrophils % 89.8 % (40.0-70.0) H 04/17/21 03:50 Seg Neutrophils # 6.7 K/mm3 (1.8-7.7) 04/17/21 03:50 D-Dimer 1401.08 ng/mlDDU (0-234) H 05/02/21 04:55 ABG pH 7.407 pH Units (7.350-7.450) 04/29/21 14:23 POC ABG pCO2 45.5 mmHg (32.0-48.0) 04/26/21 02:45 ABG pCO2 42.2 mm Hg 04/29/21 14:23 POC ABG pO2 70.7 mmHg (83-108) L 04/26/21 02:45 ABG pO2 52.6 mm Hg (80.0-90.0) L 04/29/21 14:23 POC ABG HCO3 28.7 04/26/21 02:45 ABG HCO3 26.0 mmol/L (20.0-26.0) 04/29/21 14:23 ABG O2 Saturation 86.4 % (95.0-99.0) L 04/29/21 14:23 ABG O2 Content 18.1 (0.0-44) 04/29/21 14:23 POC ABG Base Excess 3.4 04/26/21 02:45 ABG Base Excess 1.1 mmol/L (-2.0-3.0) 04/29/21 14:23 ABG Hemoglobin 15.3 gm/dl (12.0-16.0) 04/29/21 14:23 ABG Oxyhemoglobin 93.0 (94-98) L 04/26/21 02:45 ABG Carboxyhemoglobin 1.5 % (0.0-5.0) 04/29/21 14:23 ABG Methemoglobin 0.6 % (0.0-1.5) 04/29/21 14:23 ABG Sodium 132.7 mmol/L (136.0-145.0) L 04/26/21 02:45 ABG Potassium 3.8 mmol/L (3.40-4.50) 04/26/21 02:45 ABG Chloride 98.0 mmol/L (98-107) 04/26/21 02:45 ABG Glucose 115 mg/dL (65-95) H 04/26/21 02:45 Oxyhemoglobin 84.6 % (95.0-99.0) L 04/29/21 14:23 Carboxyhemoglobin 0.7 (0.5-1.5) 04/26/21 02:45 FiO2 100 % 04/29/21 14:23 FiO2 % 100.0 04/26/21 02:45 Sodium 131 mmol/L (137-145) L 05/02/21 04:55 Potassium 3.9 mmol/L (3.6-5.0) D 05/02/21 04:55 Chloride 95.5 mmol/L (98-107) L 05/02/21 04:55 Carbon Dioxide 27 mmol/L (22-30) 05/02/21 04:55 Anion Gap 12 mmol/L 05/02/21 04:55 BUN 20 mg/dL (7-17) H 05/02/21 04:55 Creatinine 0.3 mg/dL (0.6-1.2) L 05/02/21 04:55 Estimated GFR > 60 ml/min 05/02/21 04:55 BUN/Creatinine Ratio 67 % 05/02/21 04:55 Glucose 288 mg/dL (65-100) H 05/02/21 04:55 POC Glucose 180 mg/dL (70-105) H 05/02/21 07:53 Hemoglobin A1c 8.5 % (4-6) H 04/18/21 07:36 Calcium 9.1 mg/dL (8.4-10.2) 05/02/21 04:55 Phosphorus 2.50 mg/dL (2.5-4.5) D 05/02/21 04:55 Magnesium 1.90 mg/dL (1.7-2.3) 05/02/21 04:55 Ferritin 392.0 ng/mL (10.0-200.0) H 04/17/21 08:26 Total Bilirubin 0.30 mg/dL (0.1-1.2) 05/02/21 04:55 AST 20 units/L (5-40) 05/02/21 04:55 ALT 45 units/L (7-56) 05/02/21 04:55 Alkaline Phosphatase 121 units/L (35-129) 05/02/21 04:55 Lactate Dehydrogenase 522 units/L (91-180) H 04/30/21 08:00 C-Reactive Protein 0.10 mg/dL (0.00-1.30) 05/02/21 04:55 Total Protein 6.0 g/dL (6.3-8.2) L 05/02/21 04:55 Albumin 3.1 g/dL (3.9-5) L 05/02/21 04:55 Albumin/Globulin Ratio 1.1 % 05/02/21 04:55 Procalcitonin < 0.05 ng/mL (<0.15) 04/17/21 08:26 Arterial Blood Glucose 115 mg/dL (65-95) H 04/26/21 02:45 Arterial Blood Ionized Calcium 4.6 mg/dL (4.6-5.3) 04/26/21 02:45 Coronavirus (PCR) Positive (Negative) A 04/17/21 Unknown Amos/IV: Voiding Method External Female Catheter Active Medications - Current Medications Current Medications: Generic Name Dose Route Start Last Admin Trade Name Freq PRN Reason Stop Dose Admin Acetaminophen 650 mg 04/16/21 14:00 04/27/21 18:58 Acetaminophen 325 Mg Tab PO 650 mg Q4H PRN Administration Pain MILD(1-3)/Fever >100.5/[place] Albuterol 2.5 mg 04/16/21 13:39 04/21/21 20:39 Albuterol 2.5 Mg/3 Ml Nebu IH 2.5 mg Q4HRT PRN Administration Shortness Of Breath Artificial Tears 2 drops 04/28/21 18:15 05/01/21 11:29 Hypromellose 0.5% Ophth Soln 15 Ml OU 2 drops Q4H PRN Administration Dry Eye(s) Ascorbic Acid 500 mg 04/24/21 10:00 05/02/21 09:59 Ascorbic Acid 500 Mg Tab PO 500 mg QDAY TUTU Administration Cholecalciferol 1,000 unit 04/17/21 10:00 05/02/21 09:59 Cholecalciferol (Vit D3) 1000 Unit (25 Mcg) Tab PO 1,000 unit QDAY TUTU Administration Dextrose 50 ml 04/18/21 07:30 04/28/21 09:59 Dextrose 50% In Water (25gm) 50 Ml Syringe IV 50 ml Q30MIN PRN Administration Hypoglycemia Protocol Docusate Sodium 100 mg 04/30/21 10:00 05/02/21 09:59 Docusate Sodium 100 Mg Cap PO 100 mg BID TUTU Administration Famotidine 20 mg 04/16/21 22:00 05/02/21 09:58 Famotidine 20 Mg Tab PO 20 mg BID TUTU Administration Heparin Sodium (Porcine) 5,000 unit 04/16/21 22:00 05/02/21 09:58 Heparin 5,000 Unit/1 Ml Vial SUB-Q 5,000 unit Q12HR TUTU Administration Dexmedetomidine HCl 400 mcg/ 104 mls @ 3.604 mls/hr 04/26/21 04:00 05/02/21 10:18 Sodium Chloride IV 0 mcg/kg/hr TITRATE TUTU 0 mls/hr Titration Protocol 0.2 MCG/KG/HR Potassium Chloride 20 meq in 100 mls @ 100 mls/hr 04/30/21 09:25 Kcl 20meq/100ml IV Q1H PRN Potassium 3-3.5 mEq/L Potassium Chloride 20 meq in 100 mls @ 100 mls/hr 04/30/21 09:25 Kcl 20meq/100ml IV Q1H PRN Potassium 2.6-2.9 mEq/L Magnesium Sulfate 1 gm/ Sodium 52 mls @ 26 mls/hr 04/30/21 09:25 Chloride IV Q2H PRN Magnesium level 1.8-2 mg/dL Magnesium Sulfate 2 gm in 50 mls @ 25 mls/hr 04/30/21 09:25 Magnesium Sulfate 2gm/50ml IV Q2H PRN Magnesium level 1.5-1.7 mg/dL Magnesium Sulfate 4 gm in 100 mls @ 25 mls/hr 04/30/21 09:25 Magnesium Sulfate 4gm/100ml IV Q4H PRN Magnesium level < 1.4 mg/dL Sodium Phosphate 15 mmol/ 155 mls @ 40 mls/hr 04/30/21 09:25 Sodium Chloride IV Q4H PRN Phosphorous level 1.2-2.5 mg/d Sodium Phosphate 30 mmol/ 260 mls @ 40 mls/hr 04/30/21 09:25 Sodium Chloride IV Q6H PRN Phosphorous level < 1.2 mg/dL Amino Acids 2,000 mls @ 84 mls/hr 05/01/21 20:00 Clinimix 4.25%-10% Solution IV 05/02/21 19:59 ONCE TUTU Insulin Glargine 15 units 05/01/21 10:00 05/02/21 09:59 Insulin Glargine 100 Units/Ml SUB-Q 15 units DAILY TUTU Administration Insulin Human Lispro 0 unit 05/01/21 12:00 05/02/21 10:18 Insulin Lispro 100 Unit/Ml SUB-Q Not Given Q6HR TUTU Protocol Lorazepam 1 mg 05/02/21 08:56 05/02/21 10:10 Lorazepam 2 Mg/Ml Vial IV 1 mg Q4H PRN Administration Anxiety Methylprednisolone Sodium Succinate 40 mg 04/28/21 14:00 05/02/21 10:17 Methylprednisolone Sod Succinate 40 Mg/1 Ml Inj IV Not Given Q8HR TUTU Ofloxacin 2 drops 05/02/21 12:00 Ofloxacin 0.3% Ophth Soln 5 Ml OU 05/07/21 11:59 Q6HR TUTU Ondansetron HCl 4 mg 04/16/21 14:00 04/27/21 14:33 Ondansetron 4 Mg/2 Ml Inj IV 4 mg Q8H PRN Administration Nausea And Vomiting Sodium Chloride 10 ml 04/16/21 22:00 05/02/21 09:59 Sodium Chloride 0.9% 10 Ml Flush Syringe IV 10 ml BID TUTU Administration Sodium Chloride 10 ml 04/16/21 13:39 Sodium Chloride 0.9% 10 Ml Flush Syringe IV PRN PRN LINE FLUSH Zinc Sulfate 220 mg 04/16/21 22:00 05/02/21 09:59 Zinc Sulfate 220 Mg Cap PO 220 mg BID TUTU Administration Nutrition/Malnutrition Assess - Dietary Evaluation Nutrition/Malnutrition Findings: Nutrition Notes Start: 04/23/21 07:41 Freq: Status: Active Protocol: Document 04/30/21 17:14 EB (Rec: 04/30/21 17:20 [email or web address]) Nutrition Notes Need for Assessment generated from: MD Order Initial or Follow up Reassessment Current Diagnosis Respiratory Failure Other Pertinent Diagnosis COVID-19 pneu Current Diet Cardiac/Consistent CHO Labs/Tests Na 135 Glu 153 Pertinent Medications Vit. C Vit. D Height 4 ft 11.84 in Weight 68.4 kg [place] Body Weight (kg) 45.09 BMI 29.6 Weight change and time frame Wt stable from yesterday Subjective/Other Information RD consulted again for Malnutrition. Pt consumed 100% of breakfast this am. She remains on BiPap support. PICC line placed yesterday. Burn Absent Trauma Absent Minimum of two criteria Yes Energy Intake (severe) < or equal to 50% Estimated Energy Requirement > or equal to 5 days Interpretation of Weight Loss (severe) >5% in 1 month #2 Nutrition Diagnosis Malnutrition Diagnosis Progress(for reassessment Continues documentation) #1 Nutrition Diagnosis Inadequate oral intake Diagnosis Progress(for reassessment Continues documentation) Is patient on ventilator? No Is Patient Ambulatory and/or Out of Bed No REE-([place]-[facility]-confined to bed) [phone] Additional Notes Pro needs 1.2-2g/k-137g/ day Fluid needs 1ml/kcal Nutrition Intervention Change Diet Order: Continue current diet as tolerated Goal #1 PO tolerance Goal #2 PO intakes to meet nutrient needs as best possible Follow-Up By: 05/02/21 Additional Comments F/U: intakes, resp status - Attestation Statement I have reviewed and agreed w/ Malnutrition eval & tx plan: Yes
--- NOTE | 2021-05-02 12:37 | Progress Note ---
Assessment and Plan Cultures: Covid PCR: Positive A/P: 50-year-old female past medical history obesity, GERD, hyperlipidemia presents with COVID-19 pneumonia #Severe COVID-19 pneumonia #Acute hypoxemic respiratory failure: secondary to COVID-19 infection. Currently on high flow nasal cannula/BiPAP #Obesity #Elevated d-dimer: DVT scan negative. Recs: -Methylprednisolone/steroids per ICU team -Completed Remdesivir, s/p Actemra once -anticoag dosing per protocol. DVT scan negative -guarded prognosis Chandni Dominguez MD, FACP [facility] O: [phone] F: [phone] Subjective Date of service: 05/02/21 Interval history: Afebrile. Remains on high flow nasal cannula. D-dimer 1401, CRP 0.1. DVT scan negative in lower extremities. Objective - Exam Narrative Exam: Physical Exam (reviewed in chart to minimize risk of transmission) Constitutional: deferred Head, Ears, Nose: deferred Eyes: deferred Neck: deferred Oral: deferred Cardiovascular: deferred Respiratory: deferred GI: deferred Musculoskeletal: deferred Skin: deferred Hem/Lymphatic: deferred Psych: deferred Neurological: deferred - Constitutional Vitals: Vital Signs Temp Pulse Resp BP Pulse Ox 97.9 F 92 H 35 H 101/53 95 05/02/21 08:00 05/02/21 11:15 05/02/21 11:15 05/02/21 11:15 05/02/21 11:15 Temperature -Last 24 Hours Temperature 97.9 F Temperature 98.7 F Temperature 98.0 F Temperature 97.3 F Temperature 98.2 F - Labs CBC & Chem 7: 05/02/21 04:55 05/02/21 04:55 Labs: Abnormal lab results 05/01/21 05/01/21 05/02/21 Range/Units 15:46 21:06 04:55 RDW (13.2-15.2) % D-Dimer (0-234) ng/mlDDU Sodium 131 L (137-145) mmol/L Chloride 95.5 L (98-107) mmol/L BUN 20 H (7-17) mg/dL Creatinine 0.3 L (0.6-1.2) mg/dL Glucose 288 H (65-100) mg/dL POC Glucose 279 H 232 H (70-105) mg/dL Total Protein 6.0 L (6.3-8.2) g/dL Albumin 3.1 L (3.9-5) g/dL 05/02/21 05/02/21 05/02/21 Range/Units 04:55 04:55 07:53 RDW 16.1 H (13.2-15.2) % D-Dimer 1401.08 H (0-234) ng/mlDDU Sodium (137-145) mmol/L Chloride (98-107) mmol/L BUN (7-17) mg/dL Creatinine (0.6-1.2) mg/dL Glucose (65-100) mg/dL POC Glucose 180 H (70-105) mg/dL Total Protein (6.3-8.2) g/dL Albumin (3.9-5) g/dL 05/02/21 Range/Units 11:45 RDW (13.2-15.2) % D-Dimer (0-234) ng/mlDDU Sodium (137-145) mmol/L Chloride (98-107) mmol/L BUN (7-17) mg/dL Creatinine (0.6-1.2) mg/dL Glucose (65-100) mg/dL POC Glucose 228 H (70-105) mg/dL Total Protein (6.3-8.2) g/dL Albumin (3.9-5) g/dL
[2021-05-02] MEDS: OFLOXACIN 0.3% OPHTH SOLN 5 ML OU SCH ×2 (12:51→18:30)
[2021-05-02] MEDS: POLYETHYLENE GLYCOL 3350 17 GM POWDER PO SCH (15:40)
[2021-05-02] MEDS ORDERED: AMINO ACIDS 4.25%/DEXTROSE 10% 2,000 ML IV SCH (20:00)
[2021-05-02] MEDS: SENNOSIDES 8.6 MG TAB PO SCH (22:35)
[2021-05-03] MEDS: OFLOXACIN 0.3% OPHTH SOLN 5 ML OU SCH ×5 (00:46→23:30)
[2021-05-03] MEDS: INSULIN LISPRO 100 UNIT/ML SUB-Q SCH ×5 (00:46→23:31)
[2021-05-03] MEDS: FAMOTIDINE 20 MG TAB PO SCH (06:19)
[2021-05-03] MEDS: methylPREDNISolone Sod Succinate 40 MG/1 ML INJ IV SCH ×3 (06:20→21:59)
[2021-05-03 06:41] LABS: Alanine Aminotransferase 75 units/L (7-56); Albumin 3.6 g/dL (3.9-5); Blood Urea Nitrogen 20 mg/dL (7-17); Calcium 9.2 mg/dL (8.4-10.2); Hemolysis Index 7
[2021-05-03 06:45] LABS: BUN/Creatinine Ratio 40
--- NOTE | 2021-05-03 07:22 | Progress Note ---
Assessment and Plan 50 y/o female with acute respiratory failure secondary to COVID19 pneumonia. 05/03/21: Set back last night from yesterday. Continue bipap therapy for now and attempt HFNC maybe later this afternoon. Continue to use PRN ativan but may need to schedule as she likely took off mask from anxiety. Continue IV steroids. Hold on transfer to COVID Floor. 05/02/21: Continue to wean FiO2 as tolerated for sats >88%. Will continue bipap at night. Patient has no funding so not a candidate for LTACH. Given that she has been stable and not requiring the combo of HFNC and NRB, will consider moving to COVID floor. 05/01/21: Continue to wean FiO2 for sats >88%. A sat of 90 is more than acceptable and oxygen should not be increased for this unless patient desats and remains at a sat lower than 88. Bipap at night to give some form of relief and HFNC during the day. Currently on just this alone which is improvement. Ok with daily diuresis but must monitor renal function and BP closely. She was over diuresed last week and we ended up giving fluid back. Prognosis remains guarded. 04/30/21: Will start CLinimix today for nutritional support, without electrolytes. Check labs in am. Prone if able. Continue precedx for anxiety. Very very guarded prognosis. Attempting our best to not intubate. 04/29/21: Continue precedex. Continue IV solumedrol. Prone if able. Guarded prognosis. 04/28/21: Continue Precedex. Picc team attempting to place line now. Stable on Bipap. Ordered steroids IV solumedrol to start today. Prognosis remains guarded, still at very high risk for intubation. 04/27/21: Hypotension improving/improved. Hold on any further lasix dosing. Continue precedex to help with anxeity. later today please attempt HFNC with NRB if needed. Attempt to feed if possible. Steroids end today, please order solumedrol 40q8 to start tomorrow (04/28/21). guarded prognosis. 04/26/21: Hypotension today, most likely from precedex use and diuresis that I did the last several days. Will bolus again today. Consider midodrine if BP does not respond. 04/25/21: Lasix again today. Keep PRN ativan for now. Hold on precedex for now. Guarded prognosis. Labs ordered for tomorrow. 04/24/21: Lasix today. Will also start patient on low dose PRN ativan. If this does not help will then try precedex. Guarded prognosis. 04/23/21: Prone as tolerated. No lasix today. Continue decadron. Guarded prognosis. High risk for intubation and high mortality with intubation. 04/19/21: Prone as tolerated during the day and sleep prone at night. Continue IV remdesivir and steroids. Did get actemra. Guarded prognosis. 1. Daily net negative state 2. Prone if possible 3. IV remdesivir. 4. Should be a candidate for Actemra 5. IV steroids 6. Guarded Prognosis Subjective Date of service: 05/03/21 Interval history: Patient had a good day overall and then last night around 0400 she took off her bipap and desatted into the 60's. Took a significant amount of time to recover. Back on bipap now with good sats but at 100%. Precedex is still off. Objective Vital Signs - 12hr 05/02/21 05/02/21 05/02/21 19:27 19:30 19:45 Temperature 98.5 F Pulse Rate 106 H 100 H Respiratory 46 H 43 H Rate Blood Pressure 127/68 120/65 O2 Sat by Pulse 100 100 Oximetry 05/02/21 05/02/21 05/02/21 19:50 20:00 20:15 Temperature Pulse Rate 108 H 109 H 114 H Respiratory 37 H 44 H 43 H Rate Blood Pressure 120/65 137/62 127/68 O2 Sat by Pulse 96 94 96 Oximetry 05/02/21 05/02/21 05/02/21 20:30 20:45 21:00 Temperature Pulse Rate 99 H 100 H 98 H Respiratory 40 H 44 H 40 H Rate Blood Pressure 119/61 114/70 113/78 O2 Sat by Pulse 100 99 98 Oximetry 05/02/21 05/02/21 05/02/21 21:15 21:30 21:45 Temperature Pulse Rate 103 H 97 H 97 H Respiratory 40 H 39 H 39 H Rate Blood Pressure 108/61 119/64 115/63 O2 Sat by Pulse Oximetry 05/02/21 05/02/21 05/02/21 22:01 22:15 22:30 Temperature Pulse Rate 118 H 109 H 113 H Respiratory 37 H 44 H 42 H Rate Blood Pressure 115/63 129/79 121/68 O2 Sat by Pulse 99 98 Oximetry 05/02/21 05/02/21 05/02/21 22:45 23:00 23:15 Temperature Pulse Rate 101 H 100 H 95 H Respiratory 41 H 41 H 36 H Rate Blood Pressure 123/74 120/69 120/69 O2 Sat by Pulse 99 100 100 Oximetry 05/02/21 05/02/21 05/02/21 23:24 23:30 23:45 Temperature 98.8 F Pulse Rate 94 H 90 Respiratory 37 H 34 H Rate Blood Pressure 114/63 113/66 O2 Sat by Pulse 100 100 Oximetry 05/03/21 05/03/21 05/03/21 00:00 00:15 00:21 Temperature Pulse Rate 96 H 97 H 91 H Respiratory 39 H 41 H 34 H Rate Blood Pressure 132/98 125/65 125/65 O2 Sat by Pulse 99 100 100 Oximetry 05/03/21 05/03/21 05/03/21 00:30 00:45 01:00 Temperature Pulse Rate 90 88 86 Respiratory 36 H 34 H 34 H Rate Blood Pressure 114/76 113/65 110/67 O2 Sat by Pulse 100 100 100 Oximetry 05/03/21 05/03/21 05/03/21 01:15 01:30 02:00 Temperature Pulse Rate 87 85 Respiratory 35 H 33 H Rate Blood Pressure 112/69 109/66 O2 Sat by Pulse 100 100 98 Oximetry 05/03/21 05/03/21 05/03/21 03:25 03:57 07:14 Temperature 98.9 F 98.1 F Pulse Rate 82 Respiratory 32 H Rate Blood Pressure 113/70 O2 Sat by Pulse 98 Oximetry Constitutional: no acute distress, other (on hiflo 100%) Eyes: non-icteric, other (sl injected) ENT: oropharynx moist, other (white plaques on tongue) Ascultation: Bilateral: diminished breath sounds Cardiovascular: regular rate and rhythm Gastrointestinal: normoactive bowel sounds, soft, non-tender, non-distended Extremities: no cyanosis Psychiatric: anxious CBC and BMP: 05/02/21 04:55 05/03/21 04:30 ABG, PT/INR, D-dimer: ABG ABG pH 7.229 (7.320-7.450) L 05/03/21 04:49 POC ABG pCO2 45.4 mmHg (32.0-48.0) 05/03/21 04:49 ABG pCO2 42.2 mm Hg 04/29/21 14:23 POC ABG pO2 65.3 mmHg (83-108) L 05/03/21 04:49 ABG pO2 52.6 mm Hg (80.0-90.0) L 04/29/21 14:23 POC ABG HCO3 18.5 05/03/21 04:49 ABG O2 Saturation 88.4 (0-100) 05/03/21 04:49 PT/INR, D-dimer D-Dimer 1401.08 ng/mlDDU (0-234) H 05/02/21 04:55 Abnormal lab findings: Abnormal Labs 04/16/21 04/16/21 04/16/21 11:42 11:42 11:42 WBC MCHC RDW 16.1 H Lymph % (Auto) 7.8 L Lymph # (Auto) 0.8 L Seg Neutrophils % 87.7 H Seg Neutrophils # 8.5 H D-Dimer 338.70 H ABG pH POC ABG pO2 ABG pO2 ABG O2 Saturation ABG Oxyhemoglobin ABG Sodium ABG Chloride ABG Glucose Oxyhemoglobin Carboxyhemoglobin Sodium Potassium Chloride Carbon Dioxide BUN Creatinine Glucose 194 H POC Glucose Hemoglobin A1c Ferritin AST ALT Alkaline Phosphatase Lactate Dehydrogenase C-Reactive Protein Total Protein 8.4 H Albumin 3.8 L Arterial Blood Glucose Coronavirus (PCR) 04/16/21 04/16/21 04/17/21 11:42 11:42 03:50 WBC MCHC RDW 16.0 H Lymph % (Auto) 7.7 L Lymph # (Auto) 0.6 L Seg Neutrophils % 89.8 H Seg Neutrophils # D-Dimer ABG pH POC ABG pO2 ABG pO2 ABG O2 Saturation ABG Oxyhemoglobin ABG Sodium ABG Chloride ABG Glucose Oxyhemoglobin Carboxyhemoglobin Sodium Potassium Chloride Carbon Dioxide BUN Creatinine Glucose 195 H POC Glucose Hemoglobin A1c Ferritin 254.3 H AST ALT Alkaline Phosphatase Lactate Dehydrogenase 359 H C-Reactive Protein 15.20 H Total Protein Albumin Arterial Blood Glucose Coronavirus (PCR) 04/17/21 04/17/21 04/17/21 03:50 08:26 08:26 WBC MCHC RDW Lymph % (Auto) Lymph # (Auto) Seg Neutrophils % Seg Neutrophils # D-Dimer 262.48 H ABG pH POC ABG pO2 ABG pO2 ABG O2 Saturation ABG Oxyhemoglobin ABG Sodium ABG Chloride ABG Glucose Oxyhemoglobin Carboxyhemoglobin Sodium Potassium Chloride Carbon Dioxide BUN 20 H Creatinine 0.5 L Glucose 249 H 225 H POC Glucose Hemoglobin A1c Ferritin AST ALT Alkaline Phosphatase Lactate Dehydrogenase 338 H C-Reactive Protein 17.20 H Total Protein Albumin 3.2 L Arterial Blood Glucose Coronavirus (PCR) 04/17/21 04/17/21 04/17/21 08:26 15:04 Unknown WBC MCHC RDW Lymph % (Auto) Lymph # (Auto) Seg Neutrophils % Seg Neutrophils # D-Dimer ABG pH POC ABG pO2 ABG pO2 ABG O2 Saturation ABG Oxyhemoglobin ABG Sodium ABG Chloride ABG Glucose Oxyhemoglobin Carboxyhemoglobin Sodium Potassium Chloride Carbon Dioxide BUN 20 H Creatinine 0.5 L Glucose 246 H POC Glucose Hemoglobin A1c Ferritin 392.0 H AST ALT Alkaline Phosphatase Lactate Dehydrogenase C-Reactive Protein Total Protein 8.3 H Albumin 3.1 L Arterial Blood Glucose Coronavirus (PCR) Positive A 04/18/21 04/18/21 04/18/21 05:06 05:06 07:36 WBC 11.6 H MCHC RDW 16.1 H Lymph % (Auto) Lymph # (Auto) Seg Neutrophils % Seg Neutrophils # D-Dimer ABG pH POC ABG pO2 ABG pO2 ABG O2 Saturation ABG Oxyhemoglobin ABG Sodium ABG Chloride ABG Glucose Oxyhemoglobin Carboxyhemoglobin Sodium Potassium 5.2 H Chloride Carbon Dioxide BUN 22 H Creatinine 0.5 L Glucose 315 H POC Glucose Hemoglobin A1c 8.5 H Ferritin AST ALT Alkaline Phosphatase Lactate Dehydrogenase C-Reactive Protein Total Protein Albumin 3.3 L Arterial Blood Glucose Coronavirus (PCR) 04/18/21 04/18/21 04/18/21 11:59 16:43 23:24 WBC MCHC RDW Lymph % (Auto) Lymph # (Auto) Seg Neutrophils % Seg Neutrophils # D-Dimer ABG pH POC ABG pO2 ABG pO2 ABG O2 Saturation ABG Oxyhemoglobin ABG Sodium ABG Chloride ABG Glucose Oxyhemoglobin Carboxyhemoglobin Sodium Potassium Chloride Carbon Dioxide BUN Creatinine Glucose POC Glucose 284 H 273 H 290 H Hemoglobin A1c Ferritin AST ALT Alkaline Phosphatase Lactate Dehydrogenase C-Reactive Protein Total Protein Albumin Arterial Blood Glucose Coronavirus (PCR) 04/19/21 04/19/21 04/19/21 04:19 04:19 08:10 WBC MCHC RDW 15.7 H Lymph % (Auto) Lymph # (Auto) Seg Neutrophils % Seg Neutrophils # D-Dimer ABG pH POC ABG pO2 ABG pO2 ABG O2 Saturation ABG Oxyhemoglobin ABG Sodium ABG Chloride ABG Glucose Oxyhemoglobin Carboxyhemoglobin Sodium Potassium Chloride Carbon Dioxide BUN 27 H Creatinine 0.4 L Glucose 184 H POC Glucose 194 H Hemoglobin A1c Ferritin AST ALT Alkaline Phosphatase Lactate Dehydrogenase C-Reactive Protein Total Protein Albumin 3.1 L Arterial Blood Glucose Coronavirus (PCR) 04/19/21 04/19/21 04/19/21 11:38 16:25 22:04 WBC MCHC RDW Lymph % (Auto) Lymph # (Auto) Seg Neutrophils % Seg Neutrophils # D-Dimer ABG pH POC ABG pO2 ABG pO2 ABG O2 Saturation ABG Oxyhemoglobin ABG Sodium ABG Chloride ABG Glucose Oxyhemoglobin Carboxyhemoglobin Sodium Potassium Chloride Carbon Dioxide BUN Creatinine Glucose POC Glucose 224 H 297 H 251 H Hemoglobin A1c Ferritin AST ALT Alkaline Phosphatase Lactate Dehydrogenase C-Reactive Protein Total Protein Albumin Arterial Blood Glucose Coronavirus (PCR) 04/20/21 04/20/21 04/20/21 05:28 08:43 16:21 WBC MCHC RDW Lymph % (Auto) Lymph # (Auto) Seg Neutrophils % Seg Neutrophils # D-Dimer ABG pH POC ABG pO2 ABG pO2 ABG O2 Saturation ABG Oxyhemoglobin ABG Sodium ABG Chloride ABG Glucose Oxyhemoglobin Carboxyhemoglobin Sodium Potassium Chloride Carbon Dioxide BUN 27 H Creatinine Glucose 192 H POC Glucose 173 H 253 H Hemoglobin A1c Ferritin AST ALT Alkaline Phosphatase Lactate Dehydrogenase C-Reactive Protein Total Protein Albumin 3.0 L Arterial Blood Glucose Coronavirus (PCR) 04/21/21 04/21/21 04/21/21 07:58 12:05 16:08 WBC MCHC RDW Lymph % (Auto) Lymph # (Auto) Seg Neutrophils % Seg Neutrophils # D-Dimer ABG pH POC ABG pO2 ABG pO2 ABG O2 Saturation ABG Oxyhemoglobin ABG Sodium ABG Chloride ABG Glucose Oxyhemoglobin Carboxyhemoglobin Sodium Potassium Chloride Carbon Dioxide BUN Creatinine Glucose POC Glucose 140 H 252 H 214 H Hemoglobin A1c Ferritin AST ALT Alkaline Phosphatase Lactate Dehydrogenase C-Reactive Protein Total Protein Albumin Arterial Blood Glucose Coronavirus (PCR) 04/21/21 04/22/21 04/22/21 21:42 08:37 12:01 WBC MCHC RDW Lymph % (Auto) Lymph # (Auto) Seg Neutrophils % Seg Neutrophils # D-Dimer ABG pH 7.457 H POC ABG pO2 49.4 L ABG pO2 ABG O2 Saturation ABG Oxyhemoglobin 85.6 L ABG Sodium ABG Chloride ABG Glucose 121 H Oxyhemoglobin Carboxyhemoglobin 0.3 L Sodium Potassium Chloride Carbon Dioxide BUN Creatinine Glucose POC Glucose 162 H 227 H Hemoglobin A1c Ferritin AST ALT Alkaline Phosphatase Lactate Dehydrogenase C-Reactive Protein Total Protein Albumin Arterial Blood Glucose 121 H Coronavirus (PCR) 04/22/21 04/22/21 04/23/21 16:26 22:23 04:52 WBC MCHC RDW 15.7 H Lymph % (Auto) Lymph # (Auto) Seg Neutrophils % Seg Neutrophils # D-Dimer ABG pH POC ABG pO2 ABG pO2 ABG O2 Saturation ABG Oxyhemoglobin ABG Sodium ABG Chloride ABG Glucose Oxyhemoglobin Carboxyhemoglobin Sodium Potassium Chloride Carbon Dioxide BUN Creatinine Glucose POC Glucose 200 H 136 H Hemoglobin A1c Ferritin AST ALT Alkaline Phosphatase Lactate Dehydrogenase C-Reactive Protein Total Protein Albumin Arterial Blood Glucose Coronavirus (PCR) 04/23/21 04/23/21 04/23/21 04:52 12:06 17:41 WBC MCHC RDW Lymph % (Auto) Lymph # (Auto) Seg Neutrophils % Seg Neutrophils # D-Dimer ABG pH POC ABG pO2 ABG pO2 ABG O2 Saturation ABG Oxyhemoglobin ABG Sodium ABG Chloride ABG Glucose Oxyhemoglobin Carboxyhemoglobin Sodium 136 L Potassium Chloride 97.7 L Carbon Dioxide BUN 23 H Creatinine Glucose 101 H POC Glucose 202 H 169 H Hemoglobin A1c Ferritin AST 46 H ALT Alkaline Phosphatase Lactate Dehydrogenase C-Reactive Protein Total Protein Albumin 3.3 L Arterial Blood Glucose Coronavirus (PCR) 04/23/21 04/24/21 04/24/21 23:08 05:17 08:38 WBC MCHC RDW Lymph % (Auto) Lymph # (Auto) Seg Neutrophils % Seg Neutrophils # D-Dimer ABG pH POC ABG pO2 ABG pO2 ABG O2 Saturation ABG Oxyhemoglobin ABG Sodium ABG Chloride ABG Glucose Oxyhemoglobin Carboxyhemoglobin Sodium Potassium Chloride Carbon Dioxide BUN Creatinine Glucose POC Glucose 111 H 108 H 126 H Hemoglobin A1c Ferritin AST ALT Alkaline Phosphatase Lactate Dehydrogenase C-Reactive Protein Total Protein Albumin Arterial Blood Glucose Coronavirus (PCR) 04/24/21 04/24/21 04/24/21 11:54 17:57 21:23 WBC MCHC RDW Lymph % (Auto) Lymph # (Auto) Seg Neutrophils % Seg Neutrophils # D-Dimer ABG pH POC ABG pO2 ABG pO2 ABG O2 Saturation ABG Oxyhemoglobin ABG Sodium ABG Chloride ABG Glucose Oxyhemoglobin Carboxyhemoglobin Sodium Potassium Chloride Carbon Dioxide BUN Creatinine Glucose POC Glucose 147 H 177 H 138 H Hemoglobin A1c Ferritin AST ALT Alkaline Phosphatase Lactate Dehydrogenase C-Reactive Protein Total Protein Albumin Arterial Blood Glucose Coronavirus (PCR) 04/25/21 04/25/21 04/25/21 07:06 11:23 15:43 WBC MCHC RDW Lymph % (Auto) Lymph # (Auto) Seg Neutrophils % Seg Neutrophils # D-Dimer ABG pH POC ABG pO2 ABG pO2 ABG O2 Saturation ABG Oxyhemoglobin ABG Sodium ABG Chloride ABG Glucose Oxyhemoglobin Carboxyhemoglobin Sodium Potassium Chloride Carbon Dioxide BUN Creatinine Glucose POC Glucose 147 H 169 H 227 H Hemoglobin A1c Ferritin AST ALT Alkaline Phosphatase Lactate Dehydrogenase C-Reactive Protein Total Protein Albumin Arterial Blood Glucose Coronavirus (PCR) 04/25/21 04/26/21 04/26/21 21:22 02:45 05:15 WBC MCHC RDW Lymph % (Auto) Lymph # (Auto) Seg Neutrophils % Seg Neutrophils # D-Dimer ABG pH POC ABG pO2 70.7 L ABG pO2 ABG O2 Saturation ABG Oxyhemoglobin 93.0 L ABG Sodium 132.7 L ABG Chloride ABG Glucose 115 H Oxyhemoglobin Carboxyhemoglobin Sodium Potassium Chloride 95.8 L Carbon Dioxide 32 H BUN 20 H Creatinine Glucose 102 H POC Glucose 196 H Hemoglobin A1c Ferritin AST ALT Alkaline Phosphatase Lactate Dehydrogenase C-Reactive Protein Total Protein Albumin Arterial Blood Glucose 115 H Coronavirus (PCR) 04/26/21 04/26/21 04/26/21 11:49 16:09 21:07 WBC MCHC RDW Lymph % (Auto) Lymph # (Auto) Seg Neutrophils % Seg Neutrophils # D-Dimer ABG pH POC ABG pO2 ABG pO2 ABG O2 Saturation ABG Oxyhemoglobin ABG Sodium ABG Chloride ABG Glucose Oxyhemoglobin Carboxyhemoglobin Sodium Potassium Chloride Carbon Dioxide BUN Creatinine Glucose POC Glucose 114 H 188 H 136 H Hemoglobin A1c Ferritin AST ALT Alkaline Phosphatase Lactate Dehydrogenase C-Reactive Protein Total Protein Albumin Arterial Blood Glucose Coronavirus (PCR) 04/27/21 04/27/21 04/28/21 17:34 22:12 08:26 WBC MCHC RDW Lymph % (Auto) Lymph # (Auto) Seg Neutrophils % Seg Neutrophils # D-Dimer ABG pH POC ABG pO2 ABG pO2 ABG O2 Saturation ABG Oxyhemoglobin ABG Sodium ABG Chloride ABG Glucose Oxyhemoglobin Carboxyhemoglobin Sodium Potassium Chloride Carbon Dioxide BUN Creatinine Glucose POC Glucose 128 H 159 H 69 L Hemoglobin A1c Ferritin AST ALT Alkaline Phosphatase Lactate Dehydrogenase C-Reactive Protein Total Protein Albumin Arterial Blood Glucose Coronavirus (PCR) 04/28/21 04/28/21 04/29/21 12:22 21:11 06:05 WBC MCHC RDW Lymph % (Auto) Lymph # (Auto) Seg Neutrophils % Seg Neutrophils # D-Dimer ABG pH POC ABG pO2 ABG pO2 ABG O2 Saturation ABG Oxyhemoglobin ABG Sodium ABG Chloride ABG Glucose Oxyhemoglobin Carboxyhemoglobin Sodium 132 L Potassium Chloride 94.4 L Carbon Dioxide BUN Creatinine 0.2 L D Glucose 140 H POC Glucose 141 H 171 H Hemoglobin A1c Ferritin AST ALT Alkaline Phosphatase Lactate Dehydrogenase C-Reactive Protein Total Protein Albumin Arterial Blood Glucose Coronavirus (PCR) 04/29/21 04/29/21 04/29/21 06:05 07:24 11:36 WBC MCHC 35 H RDW 15.9 H Lymph % (Auto) Lymph # (Auto) Seg Neutrophils % Seg Neutrophils # D-Dimer ABG pH POC ABG pO2 ABG pO2 ABG O2 Saturation ABG Oxyhemoglobin ABG Sodium ABG Chloride ABG Glucose Oxyhemoglobin Carboxyhemoglobin Sodium Potassium Chloride Carbon Dioxide BUN Creatinine Glucose POC Glucose 141 H 220 H Hemoglobin A1c Ferritin AST ALT Alkaline Phosphatase Lactate Dehydrogenase C-Reactive Protein Total Protein Albumin Arterial Blood Glucose Coronavirus (PCR) 04/29/21 04/29/21 04/29/21 14:23 15:30 17:06 WBC MCHC RDW Lymph % (Auto) Lymph # (Auto) Seg Neutrophils % Seg Neutrophils # D-Dimer ABG pH POC ABG pO2 ABG pO2 52.6 L ABG O2 Saturation 86.4 L ABG Oxyhemoglobin ABG Sodium ABG Chloride ABG Glucose Oxyhemoglobin 84.6 L Carboxyhemoglobin Sodium Potassium Chloride Carbon Dioxide BUN Creatinine Glucose POC Glucose 173 H 158 H Hemoglobin A1c Ferritin AST ALT Alkaline Phosphatase Lactate Dehydrogenase C-Reactive Protein Total Protein Albumin Arterial Blood Glucose Coronavirus (PCR) 04/29/21 04/30/21 04/30/21 21:27 07:16 08:00 WBC MCHC RDW 16.1 H Lymph % (Auto) Lymph # (Auto) Seg Neutrophils % Seg Neutrophils # D-Dimer ABG pH POC ABG pO2 ABG pO2 ABG O2 Saturation ABG Oxyhemoglobin ABG Sodium ABG Chloride ABG Glucose Oxyhemoglobin Carboxyhemoglobin Sodium Potassium Chloride Carbon Dioxide BUN Creatinine Glucose POC Glucose 244 H 175 H Hemoglobin A1c Ferritin AST ALT Alkaline Phosphatase Lactate Dehydrogenase C-Reactive Protein Total Protein Albumin Arterial Blood Glucose Coronavirus (PCR) 04/30/21 04/30/21 04/30/21 08:00 08:00 11:03 WBC MCHC RDW Lymph % (Auto) Lymph # (Auto) Seg Neutrophils % Seg Neutrophils # D-Dimer 1796.87 H ABG pH POC ABG pO2 ABG pO2 ABG O2 Saturation ABG Oxyhemoglobin ABG Sodium ABG Chloride ABG Glucose Oxyhemoglobin Carboxyhemoglobin Sodium 135 L Potassium Chloride 96.3 L Carbon Dioxide BUN Creatinine 0.2 L Glucose 153 H POC Glucose 183 H Hemoglobin A1c Ferritin AST 41 H ALT 76 H Alkaline Phosphatase 160 H Lactate Dehydrogenase 522 H C-Reactive Protein Total Protein 6.1 L Albumin 3.1 L Arterial Blood Glucose Coronavirus (PCR) 04/30/21 04/30/21 05/01/21 17:04 22:17 05:39 WBC MCHC RDW Lymph % (Auto) Lymph # (Auto) Seg Neutrophils % Seg Neutrophils # D-Dimer ABG pH POC ABG pO2 ABG pO2 ABG O2 Saturation ABG Oxyhemoglobin ABG Sodium ABG Chloride ABG Glucose Oxyhemoglobin Carboxyhemoglobin Sodium 133 L Potassium Chloride 92.1 L Carbon Dioxide BUN 24 H Creatinine 0.4 L D Glucose 269 H POC Glucose 167 H 208 H Hemoglobin A1c Ferritin AST ALT 66 H Alkaline Phosphatase 142 H Lactate Dehydrogenase C-Reactive Protein Total Protein Albumin 3.2 L Arterial Blood Glucose Coronavirus (PCR) 05/01/21 05/01/21 05/01/21 05:39 05:39 07:45 WBC MCHC RDW 16.0 H Lymph % (Auto) Lymph # (Auto) Seg Neutrophils % Seg Neutrophils # D-Dimer 3984.95 H ABG pH POC ABG pO2 ABG pO2 ABG O2 Saturation ABG Oxyhemoglobin ABG Sodium ABG Chloride ABG Glucose Oxyhemoglobin Carboxyhemoglobin Sodium Potassium Chloride Carbon Dioxide BUN Creatinine Glucose POC Glucose 229 H Hemoglobin A1c Ferritin AST ALT Alkaline Phosphatase Lactate Dehydrogenase C-Reactive Protein Total Protein Albumin Arterial Blood Glucose Coronavirus (PCR) 05/01/21 05/01/21 05/01/21 12:10 15:46 21:06 WBC MCHC RDW Lymph % (Auto) Lymph # (Auto) Seg Neutrophils % Seg Neutrophils # D-Dimer ABG pH POC ABG pO2 ABG pO2 ABG O2 Saturation ABG Oxyhemoglobin ABG Sodium ABG Chloride ABG Glucose Oxyhemoglobin Carboxyhemoglobin Sodium Potassium Chloride Carbon Dioxide BUN Creatinine Glucose POC Glucose 296 H 279 H 232 H Hemoglobin A1c Ferritin AST ALT Alkaline Phosphatase Lactate Dehydrogenase C-Reactive Protein Total Protein Albumin Arterial Blood Glucose Coronavirus (PCR) 05/02/21 05/02/21 05/02/21 04:55 04:55 04:55 WBC MCHC RDW 16.1 H Lymph % (Auto) Lymph # (Auto) Seg Neutrophils % Seg Neutrophils # D-Dimer 1401.08 H ABG pH POC ABG pO2 ABG pO2 ABG O2 Saturation ABG Oxyhemoglobin ABG Sodium ABG Chloride ABG Glucose Oxyhemoglobin Carboxyhemoglobin Sodium 131 L Potassium Chloride 95.5 L Carbon Dioxide BUN 20 H Creatinine 0.3 L Glucose 288 H POC Glucose Hemoglobin A1c Ferritin AST ALT Alkaline Phosphatase Lactate Dehydrogenase C-Reactive Protein Total Protein 6.0 L Albumin 3.1 L Arterial Blood Glucose Coronavirus (PCR) 05/02/21 05/02/21 05/02/21 07:53 11:45 15:25 WBC MCHC RDW Lymph % (Auto) Lymph # (Auto) Seg Neutrophils % Seg Neutrophils # D-Dimer ABG pH POC ABG pO2 ABG pO2 ABG O2 Saturation ABG Oxyhemoglobin ABG Sodium ABG Chloride ABG Glucose Oxyhemoglobin Carboxyhemoglobin Sodium Potassium Chloride Carbon Dioxide BUN Creatinine Glucose POC Glucose 180 H 228 H 275 H Hemoglobin A1c Ferritin AST ALT Alkaline Phosphatase Lactate Dehydrogenase C-Reactive Protein Total Protein Albumin Arterial Blood Glucose Coronavirus (PCR) 05/02/21 05/03/21 05/03/21 22:56 04:30 04:49 WBC MCHC RDW Lymph % (Auto) Lymph # (Auto) Seg Neutrophils % Seg Neutrophils # D-Dimer ABG pH 7.229 L POC ABG pO2 65.3 L ABG pO2 ABG O2 Saturation ABG Oxyhemoglobin 87.8 L ABG Sodium 133.0 L ABG Chloride 97.0 L ABG Glucose 403 H Oxyhemoglobin Carboxyhemoglobin Sodium 130 L Potassium Chloride 94.9 L Carbon Dioxide BUN 20 H Creatinine 0.5 L D Glucose 359 H POC Glucose 293 H Hemoglobin A1c Ferritin AST 54 H ALT 75 H Alkaline Phosphatase 138 H Lactate Dehydrogenase C-Reactive Protein Total Protein Albumin 3.6 L Arterial Blood Glucose 403 H Coronavirus (PCR) 05/03/21 05:27 WBC MCHC RDW Lymph % (Auto) Lymph # (Auto) Seg Neutrophils % Seg Neutrophils # D-Dimer ABG pH POC ABG pO2 ABG pO2 ABG O2 Saturation ABG Oxyhemoglobin ABG Sodium ABG Chloride ABG Glucose Oxyhemoglobin Carboxyhemoglobin Sodium Potassium Chloride Carbon Dioxide BUN Creatinine Glucose POC Glucose 361 H Hemoglobin A1c Ferritin AST ALT Alkaline Phosphatase Lactate Dehydrogenase C-Reactive Protein Total Protein Albumin Arterial Blood Glucose Coronavirus (PCR)
[2021-05-03] MEDS: INSULIN GLARGINE 100 UNITS/ML SUB-Q SCH (09:59)
[2021-05-03] MEDS: HEPARIN 5,000 UNIT/1 ML VIAL SUB-Q SCH ×2 (09:59→21:59)
[2021-05-03] MEDS ORDERED: INSULIN GLARGINE 100 UNITS/ML SUB-Q ONE (10:00)
[2021-05-03] MEDS: FAMOTIDINE 20 MG/2 ML INJ IV SCH ×2 (10:10→21:58)
--- NOTE | 2021-05-03 11:58 | Progress Note ---
Assessment and Plan Cultures: Covid PCR: Positive A/P: 50-year-old female past medical history obesity, GERD, hyperlipidemia presents with COVID-19 pneumonia #Severe COVID-19 pneumonia #Acute hypoxemic respiratory failure: secondary to COVID-19 infection. Currently on high flow nasal cannula/BiPAP #Obesity #Elevated d-dimer: DVT scan negative. Recs: -Methylprednisolone/steroids per ICU team -Completed Remdesivir, s/p Actemra -anticoag dosing per protocol. DVT scan negative -guarded prognosis -remains off abx ID will sign off. Please call back with any questions or new concerns. Chandni Dominguez MD, FACP [facility] ([facility] O: [phone] F: [phone] Subjective Date of service: 05/03/21 Interval history: Afebrile. Remains on BiPAP. D-dimer 1401. Objective - Exam Narrative Exam: Physical Exam (reviewed in chart to minimize risk of transmission) Constitutional: deferred Head, Ears, Nose: deferred Eyes: deferred Neck: deferred Oral: deferred Cardiovascular: deferred Respiratory: deferred GI: deferred Musculoskeletal: deferred Skin: deferred Hem/Lymphatic: deferred Psych: deferred Neurological: deferred - Constitutional Vitals: Vital Signs Temp Pulse Resp BP Pulse Ox 97.9 F 91 H 33 H 111/72 99 05/03/21 11:56 05/03/21 09:00 05/03/21 09:00 05/03/21 09:00 05/03/21 09:00 Temperature -Last 24 Hours Temperature 97.9 F Temperature 98.1 F Temperature 98.9 F Temperature 98.8 F Temperature 98.5 F Temperature 98.4 F - Labs CBC & Chem 7: 05/02/21 04:55 05/03/21 04:30 Labs: Abnormal lab results 05/02/21 05/02/21 05/03/21 Range/Units 15:25 22:56 04:30 ABG pH (7.320-7.450) POC ABG pO2 (83-108) mmHg ABG Oxyhemoglobin (94-98) ABG Sodium (136.0-145.0) mmol/L ABG Chloride (98-107) mmol/L ABG Glucose (65-95) mg/dL Sodium 130 L (137-145) mmol/L Chloride 94.9 L (98-107) mmol/L BUN 20 H (7-17) mg/dL Creatinine 0.5 L D (0.6-1.2) mg/dL Glucose 359 H (65-100) mg/dL POC Glucose 275 H 293 H (70-105) mg/dL AST 54 H (5-40) units/L ALT 75 H (7-56) units/L Alkaline Phosphatase 138 H (35-129) units/L Albumin 3.6 L (3.9-5) g/dL Arterial Blood Glucose (65-95) mg/dL 05/03/21 05/03/21 05/03/21 Range/Units 04:49 05:27 11:26 ABG pH 7.229 L (7.320-7.450) POC ABG pO2 65.3 L (83-108) mmHg ABG Oxyhemoglobin 87.8 L (94-98) ABG Sodium 133.0 L (136.0-145.0) mmol/L ABG Chloride 97.0 L (98-107) mmol/L ABG Glucose 403 H (65-95) mg/dL Sodium (137-145) mmol/L Chloride (98-107) mmol/L BUN (7-17) mg/dL Creatinine (0.6-1.2) mg/dL Glucose (65-100) mg/dL POC Glucose 361 H 297 H (70-105) mg/dL AST (5-40) units/L ALT (7-56) units/L Alkaline Phosphatase (35-129) units/L Albumin (3.9-5) g/dL Arterial Blood Glucose 403 H (65-95) mg/dL
[2021-05-03] MEDS: ONDANSETRON 4 MG/2 ML INJ IV PRN (13:19)
[2021-05-03] MEDS: DOCUSATE SODIUM 100 MG CAP PO SCH ×2 (13:34→21:58)
[2021-05-03] MEDS: POLYETHYLENE GLYCOL 3350 17 GM POWDER PO SCH (13:34)
[2021-05-03] MEDS: ASCORBIC ACID 500 MG TAB PO SCH (13:34)
[2021-05-03] MEDS: CHOLECALCIFEROL (VIT D3) 1000 UNIT (25 mcg) TAB PO SCH (13:34)
[2021-05-03] MEDS: ZINC SULFATE 220 MG CAP PO SCH ×2 (13:34→23:30)
--- NOTE | 2021-05-03 14:59 | Progress Note ---
Assessment and Plan Assessment and plan: NEURO- acute pain; anxiety PRN tylenol dex for comfort- off follows commands and RAY PRN pain meds [place] island[place] speaking right eye- viral conjunctivitis vs subconjunctival hemorrhage continue to monitor started on ofloxacin ou x 5 days artificial tears has not provided relief note that when pt is on bipap she co ringing in her ears family updated on plan of care CV- ST SR-ST off pressors MAP goal 65 MAP has been in 70's no echo on record Resp- acute hypoxic resp failure due to covid19 tolerating airvo 100%/40L today- conversant on her cell phone see RT notes remains high risk for intubation ABG noted albuterol PRN trend xray findings GI- risk for protein gisella malnutrition given inc metabolic demand with resp insufficiency TPN started to poor po intake while on bipap d/c when taking adequate cals to meet metabolic need (given resp status) clears OK with aspiration precautions nutrition following bowel reg- colace BM 04/29 bowel reg. inc to include senna and miralax pepcid - volume overload; hypona; hypoMg net neg 297 ml over 24 hours trend cr replace electrolytes as needed follw Na vit D replacement AM labs ordered Heme- coagulopathy of covid; on AC VTE SQH trend CBC hgb goal over 7 no bleeding on exam BLE u/s neg for DVT has not had CT ro PE [id number] pna; sepsis; viral conjunctivitis right eye zinc/vitC/D methylpred 40m gQ8 continues wean as appropriate pharmacy following ID following completed actemra and remdesovir afebrile trend temp and WBC curve follow culture data r eye conjunctival redness- started ofloxacin x 5 d Endo- hyperglycemia; obesity glargine HS SSI AC/HS History Interval history: Admit 04/16 from ER 50 YO Female with GERD, Obesity, HLD presents to ED for evaluation. Patient reports "I cannot breathe". Patient states that she has experienced subjective fever, shortness of breath, malaise, body aches, dry cough, and shortness of breath over the past 1 week with progressively worsening symptoms over the same timeframe. EMS was notified and upon arrival the patient was found to be in distress and subsequent transported to [facility] for further care and evaluation of the aforementioned symptoms. The patient was seen and evaluated in the emergency department. All lab and imaging studies reviewed. Patient found to have a pulse oximetry of 86% with exertion on room air which is consistent with acute hypoxemic respiratory failure. Patient with chest x-ray which revealed bilateral pneumonia. Patient admitted to medical floor and initiated him on pneumonia protocol as well as coronavirus protocol. Patient knowledges fever but denies chills, chest pain, palpitation, skin rash, recent ill contacts, or known exposure to COVID-19. Prior admission on 01/21/2017 reviewed. All medication listed at time of admission has been reconciled. Patient is unvaccinated for coronavirus infection. CXR: Bilateral Pneumonia 04/17: Patient seen and examined, still uncomfortable with Hypoxic respiratory failure and on oxygen, will continue to steroids therapy, start patient on Remdesivir, ID consulted, Pulmonary consult placed. 04/18: Patient seen and examined, she is currently being changed to High flow NC due to worsening HYPOXIA, will transfer to IMCU, Pulmonary and ID following. Will also give a dose of Lasix today. Monitor Inflammatory markers. 04/19: Patient seen and examined still on high flow due to hypoxia. Appears a bit more comfortable today than yesterday. Cough has decreased in frequency. We will continue high dose Dexameathasone to complete 10 days. continue on Remdesivir 200 mg IV q day x 1 followed by 100 mg IV q day x 4 days -Obtain q48-72h inflammatory markers - ferritin, Ddimer, CRP, LDH Will also give lasix daily for the next 3 days and monitor renal function. Family updated. Continue prone positioning as tolerated 04/20: Patient has some desaturation episodes yesterday was placed on BiPAP. Discussed with ICU team for bed availability for patient to be transferred up. Continue prone position as tolerated. 04/21: Patient remains with profound hypoxia secondary to COVID pneumonia. -Continue steroids -Continue remedesir -S/P Actmera 04/22: Patient remains on steroids and remdesivir. ABG shows persistent hypoxia. We will continue current management additional trial of Lasix for the next few days to see if any improvement. Monitor inflammatory markers as needed. Prognosis is guarded remains on high flow 04/23; patient was treated with remdesivir and Actemra. Continue steroid. Patient's prognosis is guarded. 04/24; patient is on steroid. Patient is currently on BiPAP. Prognosis is guarded. Pulmonary is following. Patient was given Lasix and Ativan. 04/25; continue steroid. Patient was on 40 L of high flow oxygen with saturation was 88%. Pulmonary is following. Prognosis is guarded. Patient was given lasix and ativan. 04/26; patient is on BiPAP and Precedex. Prognosis is guarded. 04/27; patient is on BiPAP and Precedex. Patient will finish steroid today and will start on Solu-Medrol tomorrow. Prognosis is guarded. Blood pressure is better today. Hold Lasix. 04/28 patient is on 100 Fio2 via BIPAP. moderately dyspneic, pulmonary note reviewed, lab results reviewed 04/29 no acute events- see systems review above 04/30 no acute events overnight - on airvo today- TPN started -see systems review above 05-01 no acute events overnight- tolerating airvo- see systems review above 05-02 no acute events overnight; tolerating airvo this AM- see systems review above 05/03: Patient remains on full high flow oxygen. No acute events overnight Hospitalist Physical - Physical exam Narrative exam: General appearance: Absent: mild distress, Continues on high flow, calm - EENT Eyes: Present: PERRL ENT: hearing intact, clear oral mucosa - Neck Neck: Present: supple, normal ROM - Respiratory Respiratory effort: normal Respiratory: bilateral: Diminished - Cardiovascular Heart Sounds: Present: S1 & S2. Absent: rub, click - Extremities Extremities: pulses symmetrical, No edema Peripheral Pulses: within normal limits - Abdominal General gastrointestinal: Present: soft, non-tender, non-distended, normal bowel sounds Female genitourinary: Present: normal - Integumentary Integumentary: Present: clear, warm, dry - Musculoskeletal Musculoskeletal: gait normal, strength equal bilaterally - Psychiatric Psychiatric: appropriate mood/affect, intact judgment & insight - Neurologic Neurologic: CNII-XII intact, moves all extremities - Constitutional Vitals: Temp Pulse Resp BP Pulse Ox 97.9 F 91 H 33 H 111/72 95 05/03/21 11:56 05/03/21 09:00 05/03/21 09:00 05/03/21 09:00 05/03/21 14:00 General appearance: Present: mild distress Results - Labs CBC & Chem 7: 05/02/21 04:55 05/03/21 04:30 Labs: Laboratory Last Values WBC 7.7 K/mm3 (4.5-11.0) 05/02/21 04:55 RBC 4.55 M/mm3 (3.65-5.03) 05/02/21 04:55 Hgb 13.5 gm/dl (10.1-14.3) 05/02/21 04:55 Hct 40.6 % (30.3-42.9) 05/02/21 04:55 MCV 89 fl (79-97) 05/02/21 04:55 MCH 30 pg (28-32) 05/02/21 04:55 MCHC 33 % (30-34) 05/02/21 04:55 RDW 16.1 % (13.2-15.2) H 05/02/21 04:55 Plt Count 191 K/mm3 (140-440) 05/02/21 04:55 Lymph % (Auto) 7.7 % (13.4-35.0) L 04/17/21 03:50 [place] % (Auto) 2.5 % (0.0-7.3) 04/17/21 03:50 Eos % (Auto) 0.0 % (0.0-4.3) 04/17/21 03:50 Baso % (Auto) 0.0 % (0.0-1.8) 04/17/21 03:50 Lymph # (Auto) 0.6 K/mm3 (1.2-5.4) L 04/17/21 03:50 [place] # (Auto) 0.2 K/mm3 (0.0-0.8) 04/17/21 03:50 Eos # (Auto) 0.0 K/mm3 (0.0-0.4) 04/17/21 03:50 Baso # (Auto) 0.0 K/mm3 (0.0-0.1) 04/17/21 03:50 Seg Neutrophils % 89.8 % (40.0-70.0) H 04/17/21 03:50 Seg Neutrophils # 6.7 K/mm3 (1.8-7.7) 04/17/21 03:50 D-Dimer 1401.08 ng/mlDDU (0-234) H 05/02/21 04:55 ABG pH 7.229 (7.320-7.450) L 05/03/21 04:49 POC ABG pCO2 45.4 mmHg (32.0-48.0) 05/03/21 04:49 ABG pCO2 42.2 mm Hg 04/29/21 14:23 POC ABG pO2 65.3 mmHg (83-108) L 05/03/21 04:49 ABG pO2 52.6 mm Hg (80.0-90.0) L 04/29/21 14:23 POC ABG HCO3 18.5 05/03/21 04:49 ABG HCO3 26.0 mmol/L (20.0-26.0) 04/29/21 14:23 ABG O2 Saturation 88.4 (0-100) 05/03/21 04:49 ABG O2 Content 18.1 (0.0-44) 04/29/21 14:23 POC ABG Base Excess -8.9 05/03/21 04:49 ABG Base Excess 1.1 mmol/L (-2.0-3.0) 04/29/21 14:23 ABG Hemoglobin 15.8 (12.0-17.5) 05/03/21 04:49 ABG Oxyhemoglobin 87.8 (94-98) L 05/03/21 04:49 ABG Carboxyhemoglobin 1.5 % (0.0-5.0) 04/29/21 14:23 ABG Methemoglobin 0.1 (0.0-1.5) 05/03/21 04:49 ABG Sodium 133.0 mmol/L (136.0-145.0) L 05/03/21 04:49 ABG Potassium 3.9 mmol/L (3.40-4.50) 05/03/21 04:49 ABG Chloride 97.0 mmol/L (98-107) L 05/03/21 04:49 ABG Glucose 403 mg/dL (65-95) H 05/03/21 04:49 Oxyhemoglobin 84.6 % (95.0-99.0) L 04/29/21 14:23 Carboxyhemoglobin 0.6 (0.5-1.5) 05/03/21 04:49 FiO2 100 % 04/29/21 14:23 FiO2 % 100.0 05/03/21 04:49 Sodium 130 mmol/L (137-145) L 05/03/21 04:30 Potassium 3.9 mmol/L (3.6-5.0) 05/03/21 04:30 Chloride 94.9 mmol/L (98-107) L 05/03/21 04:30 Carbon Dioxide 22 mmol/L (22-30) 05/03/21 04:30 Anion Gap 17 mmol/L 05/03/21 04:30 BUN 20 mg/dL (7-17) H 05/03/21 04:30 Creatinine 0.5 mg/dL (0.6-1.2) L D 05/03/21 04:30 Estimated GFR > 60 ml/min 05/03/21 04:30 BUN/Creatinine Ratio 40 % 05/03/21 04:30 Glucose 359 mg/dL (65-100) H 05/03/21 04:30 POC Glucose 297 mg/dL (70-105) H 05/03/21 11:26 Hemoglobin A1c 8.5 % (4-6) H 04/18/21 07:36 Calcium 9.2 mg/dL (8.4-10.2) 05/03/21 04:30 Phosphorus 4.00 mg/dL (2.5-4.5) D 05/03/21 04:30 Magnesium 1.90 mg/dL (1.7-2.3) 05/03/21 04:30 Ferritin 392.0 ng/mL (10.0-200.0) H 04/17/21 08:26 Total Bilirubin 0.50 mg/dL (0.1-1.2) 05/03/21 04:30 AST 54 units/L (5-40) H 05/03/21 04:30 ALT 75 units/L (7-56) H 05/03/21 04:30 Alkaline Phosphatase 138 units/L (35-129) H 05/03/21 04:30 Lactate Dehydrogenase 522 units/L (91-180) H 04/30/21 08:00 C-Reactive Protein 0.10 mg/dL (0.00-1.30) 05/02/21 04:55 Total Protein 6.8 g/dL (6.3-8.2) 05/03/21 04:30 Albumin 3.6 g/dL (3.9-5) L 05/03/21 04:30 Albumin/Globulin Ratio 1.1 % 05/03/21 04:30 Triglycerides < 9 mg/dL (2-149) 05/03/21 04:30 Procalcitonin < 0.05 ng/mL (<0.15) 04/17/21 08:26 Arterial Blood Glucose 403 mg/dL (65-95) H 05/03/21 04:49 Arterial Blood Ionized Calcium 4.9 mg/dL (4.6-5.3) 05/03/21 04:49 Coronavirus (PCR) Positive (Negative) A 04/17/21 Unknown Amos/IV: Voiding Method External Female Catheter Active Medications - Current Medications Current Medications: Generic Name Dose Route Start Last Admin Trade Name Freq PRN Reason Stop Dose Admin Acetaminophen 650 mg 04/16/21 14:00 04/27/21 18:58 Acetaminophen 325 Mg Tab PO 650 mg Q4H PRN Administration Pain MILD(1-3)/Fever >100.5/[place] Albuterol 2.5 mg 04/16/21 13:39 04/21/21 20:39 Albuterol 2.5 Mg/3 Ml Nebu IH 2.5 mg Q4HRT PRN Administration Shortness Of Breath Artificial Tears 2 drops 04/28/21 18:15 05/01/21 11:29 Hypromellose 0.5% Ophth Soln 15 Ml OU 2 drops Q4H PRN Administration Dry Eye(s) Ascorbic Acid 500 mg 04/24/21 10:00 05/03/21 13:34 Ascorbic Acid 500 Mg Tab PO Not Given QDAY TUTU Cholecalciferol 1,000 unit 04/17/21 10:00 05/03/21 13:34 Cholecalciferol (Vit D3) 1000 Unit (25 Mcg) Tab PO Not Given QDAY TUTU Dextrose 50 ml 04/18/21 07:30 04/28/21 09:59 Dextrose 50% In Water (25gm) 50 Ml Syringe IV 50 ml Q30MIN PRN Administration Hypoglycemia Protocol Docusate Sodium 100 mg 04/30/21 10:00 05/03/21 13:34 Docusate Sodium 100 Mg Cap PO Not Given BID TUTU Famotidine 20 mg 05/03/21 11:00 05/03/21 10:10 Famotidine 20 Mg/2 Ml Inj IV 20 mg BID TUTU Administration Heparin Sodium (Porcine) 5,000 unit 04/16/21 22:00 05/03/21 09:59 Heparin 5,000 Unit/1 Ml Vial SUB-Q 5,000 unit Q12HR TUTU Administration Dexmedetomidine HCl 400 mcg/ 104 mls @ 3.604 mls/hr 04/26/21 04:00 05/02/21 10:18 Sodium Chloride IV 0 mcg/kg/hr TITRATE TUTU 0 mls/hr Titration Protocol 0.2 MCG/KG/HR Potassium Chloride 20 meq in 100 mls @ 100 mls/hr 04/30/21 09:25 Kcl 20meq/100ml IV Q1H PRN Potassium 3-3.5 mEq/L Potassium Chloride 20 meq in 100 mls @ 100 mls/hr 04/30/21 09:25 Kcl 20meq/100ml IV Q1H PRN Potassium 2.6-2.9 mEq/L Magnesium Sulfate 1 gm/ Sodium 52 mls @ 26 mls/hr 04/30/21 09:25 Chloride IV Q2H PRN Magnesium level 1.8-2 mg/dL Magnesium Sulfate 2 gm in 50 mls @ 25 mls/hr 04/30/21 09:25 Magnesium Sulfate 2gm/50ml IV Q2H PRN Magnesium level 1.5-1.7 mg/dL Magnesium Sulfate 4 gm in 100 mls @ 25 mls/hr 04/30/21 09:25 Magnesium Sulfate 4gm/100ml IV Q4H PRN Magnesium level < 1.4 mg/dL Sodium Phosphate 15 mmol/ 155 mls @ 40 mls/hr 04/30/21 09:25 Sodium Chloride IV Q4H PRN Phosphorous level 1.2-2.5 mg/d Sodium Phosphate 30 mmol/ 260 mls @ 40 mls/hr 04/30/21 09:25 Sodium Chloride IV Q6H PRN Phosphorous level < 1.2 mg/dL Amino Acids 2,000 mls @ 84 mls/hr 05/02/21 20:00 05/02/21 20:00 Clinimix 4.25%-10% Solution IV 05/03/21 19:59 84 mls/hr ONCE TUTU Administration Amino Acids/Electrolytes/Dextrose 1,440 mls @ 60 mls/hr 05/03/21 20:00 Tpn Adult IV 05/04/21 19:59 DAILY@1999 TUTU Protocol Fat Emulsion Intravenous 250 mls @ 21 mls/hr 05/03/21 20:00 Intralipid 20% IV 05/04/21 08:00 DAILY@1999 [facility] Insulin Glargine 15 units 05/01/21 10:00 05/03/21 09:59 Insulin Glargine 100 Units/Ml SUB-Q 15 units DAILY TUTU Administration Insulin Human Lispro 0 unit 05/01/21 12:00 05/03/21 13:27 Insulin Lispro 100 Unit/Ml SUB-Q 6 unit Q6HR [facility] Administration Protocol Lorazepam 1 mg 05/02/21 08:56 05/02/21 22:41 Lorazepam 2 Mg/Ml Vial IV 1 mg Q4H PRN Administration Anxiety Methylprednisolone Sodium Succinate 40 mg 04/28/21 14:00 05/03/21 13:27 Methylprednisolone Sod Succinate 40 Mg/1 Ml Inj IV 40 mg Q8HR TUTU Administration Ofloxacin 2 drops 05/02/21 12:00 05/03/21 13:27 Ofloxacin 0.3% Ophth Soln 5 Ml OU 05/07/21 11:59 2 drops Q6HR TUTU Administration Ondansetron HCl 4 mg 04/16/21 14:00 05/03/21 13:19 Ondansetron 4 Mg/2 Ml Inj IV 4 mg Q8H PRN Administration Nausea And Vomiting Polyethylene Glycol 17 gm 05/02/21 16:00 05/03/21 13:34 Polyethylene Glycol 3350 17 Gm Powder PO Not Given QDAY [facility] Senna 17.2 mg 05/02/21 22:00 05/02/21 22:35 Sennosides 8.6 Mg Tab PO 17.2 mg QHS UTTU Administration Sodium Chloride 10 ml 04/16/21 22:00 05/03/21 09:59 Sodium Chloride 0.9% 10 Ml Flush Syringe IV 10 ml BID TUTU Administration Sodium Chloride 10 ml 04/16/21 13:39 Sodium Chloride 0.9% 10 Ml Flush Syringe IV PRN PRN LINE FLUSH Zinc Sulfate 220 mg 04/16/21 22:00 05/03/21 13:34 Zinc Sulfate 220 Mg Cap PO Not Given BID [facility] Nutrition/Malnutrition Assess - Dietary Evaluation Nutrition/Malnutrition Findings: Nutrition Notes Start: 04/23/21 07:41 Freq: Status: Active Protocol: Document 05/02/21 14:22 EB (Rec: 05/02/21 14:34 EB [id number]) Nutrition Notes Initial or Follow up Reassessment Current Diagnosis Respiratory Failure Other Pertinent Diagnosis COVID-19 pneu Current Diet Clinimix 4.5%/10% Labs/Tests Na 131 Glu 288 Pertinent Medications Vit. C Vit. D Height 4 ft 11.84 in Weight 68.4 kg [place] Body Weight (kg) 45.09 BMI 29.6 Weight change and time frame Wt stable Weight Status Overweight Subjective/Other Information Pt has been receiving Clinimix TPN; this is Day 3. We are monitoring labs; noted changes in phos and K. Currently this clinimix is adequate for pt but RD will follow daily for need for custom TPN based on labs. Burn Absent Trauma Absent Current % PO Poor (25-49%) Minimum of two criteria Yes #2 Nutrition Diagnosis Malnutrition Diagnosis Progress(for reassessment Continues documentation) #1 Nutrition Diagnosis Inadequate oral intake Diagnosis Progress(for reassessment Continues documentation) Is patient on ventilator? No Is Patient Ambulatory and/or Out of Bed No REE-([facility]-confined to bed) 1477.488 Kcal/Kg value to use for calculation 25 Approximate Energy Requirements Using 1710 kcal/Kg Calculation Used for Recommendations [facility] Additional Notes Pro needs 1.2-2g/k-137g/ day Fluid needs 1ml/kcal Nutrition Intervention Change Diet Order: Continue Clinimix. Continue clear liquid diet. Kcal 510 Protein (gm) 42 Carbohydrates (gm) 100 Fat (gm) 0 Fluid (mL) 2,016 Fiber (gm) 0 Add Supplement/Snack (indicate name/kcal Ensure Clear TID /protein ) Provides kCal: 540 Provides Protein (gm) 24 Goal #1 PO tolerance Goal #2 Meet at least 75% gisella and pro needs via PO and Clinimix Anticipated Discharge Needs: Unable to determine at this time Follow-Up By: 05/03/21 Additional Comments F/u: BMP, Mag, Phos, K and need for custom TPN.
[2021-05-03] MEDS ORDERED: TOTAL PARENTERAL NUTRITION 1,440 ML IV SCH (20:00)
[2021-05-03] MEDS ORDERED: FAT EMULSIONS 20% 250 ML IV SCH (20:00)
[2021-05-03] MEDS: LORazepam 2 MG/ML VIAL IV PRN (21:58)
[2021-05-03] MEDS: SENNOSIDES 8.6 MG TAB PO SCH (21:58)
[2021-05-04] MEDS: INSULIN LISPRO 100 UNIT/ML SUB-Q SCH ×3 (05:46→17:01)
[2021-05-04] MEDS: OFLOXACIN 0.3% OPHTH SOLN 5 ML OU SCH ×3 (05:46→17:08)
[2021-05-04] MEDS: methylPREDNISolone Sod Succinate 40 MG/1 ML INJ IV SCH ×3 (05:46→22:12)
[2021-05-04] MEDS: INSULIN GLARGINE 100 UNITS/ML SUB-Q SCH (09:06)
[2021-05-04] MEDS: POLYETHYLENE GLYCOL 3350 17 GM POWDER PO SCH (09:06)
[2021-05-04] MEDS: CHOLECALCIFEROL (VIT D3) 1000 UNIT (25 mcg) TAB PO SCH (09:07)
[2021-05-04] MEDS: DOCUSATE SODIUM 100 MG CAP PO SCH ×2 (09:07→22:14)
[2021-05-04] MEDS: HEPARIN 5,000 UNIT/1 ML VIAL SUB-Q SCH ×2 (09:07→22:12)
[2021-05-04] MEDS: FAMOTIDINE 20 MG/2 ML INJ IV SCH ×2 (09:07→22:12)
[2021-05-04] MEDS: ASCORBIC ACID 500 MG TAB PO SCH (09:07)
[2021-05-04] MEDS: ZINC SULFATE 220 MG CAP PO SCH (09:07)
[2021-05-04 09:49] LABS: Alanine Aminotransferase 56 units/L (7-56); Albumin 3.2 g/dL (3.9-5); Blood Urea Nitrogen 20 mg/dL (7-17); Calcium 9.3 mg/dL (8.4-10.2); Hemolysis Index 15
[2021-05-04 09:50] LABS: BUN/Creatinine Ratio 67
[2021-05-04] MEDS ORDERED: INSULIN GLARGINE 100 UNITS/ML SUB-Q ONE (10:00)
--- NOTE | 2021-05-04 13:22 | Progress Note ---
Assessment and Plan Assessment and plan: NEURO- acute pain; anxiety PRN tylenol dex for comfort- off follows commands and RAY PRN pain meds bermudian speaking right eye- viral conjunctivitis vs subconjunctival hemorrhage continue to monitor started on ofloxacin ou x 5 days artificial tears has not provided relief note that when pt is on bipap she co ringing in her ears family updated on plan of care CV- ST SR-ST off pressors MAP goal 65 MAP has been in 70's no echo on record Resp- acute hypoxic resp failure due to covid19 Was initially on arrival 100% on 40 L this morning she is on BiPAP. see RT notes remains high risk for intubation ABG noted albuterol PRN trend xray findings GI- risk for protein gisella malnutrition given inc metabolic demand with resp insufficiency TPN started to poor po intake while on bipap d/c when taking adequate cals to meet metabolic need (given resp status) clears OK with aspiration precautions nutrition following bowel reg- colace BM 04/29 bowel reg. inc to include senna and miralax pepcid - volume overload; hypona; hypoMg net neg 297 ml over 24 hours trend cr replace electrolytes as needed follw Na vit D replacement AM labs ordered Heme- coagulopathy of covid; on AC VTE SQH trend CBC hgb goal over 7 no bleeding on exam BLE u/s neg for DVT has not had CT ro PE [id number] pna; sepsis; viral conjunctivitis right eye zinc/vitC/D methylpred 40m gQ8 continues wean as appropriate pharmacy following ID following completed actemra and remdesovir afebrile trend temp and WBC curve follow culture data r eye conjunctival redness- started ofloxacin x 5 d Endo- hyperglycemia; obesity glargine HS SSI AC/HS History Interval history: Admit 04/16 from ER 50 YO Female with GERD, Obesity, HLD presents to ED for evaluation. Patient rep orts "I cannot breathe". Patient states that she has experienced subjective fever, shortness of breath, malaise, body aches, dry cough, and shortness of breath over the past 1 week with progressively worsening symptoms over the same timeframe. EMS was notified and upon arrival the patient was found to be in distress and subsequent transported to [facility] for further care and evaluation of the aforementioned symptoms. The patient was seen and evaluated in the emergency department. All lab and imaging studies reviewed. Patient found to have a pulse oximetry of 86% with exertion on room air which is consistent with acute hypoxemic respiratory failure. Patient with chest x-ray which revealed bi lateral pneumonia. Patient admitted to medical floor and initiated him on pneumonia protocol as well as coronavirus protocol. Patient knowledges fever but denies chills, chest pain, palpitation, skin rash, recent ill contacts, or known exposure to COVID-19. Prior admission on 01/21/2017 reviewed. All medication listed at time of admission has been reconciled. Patient is unvaccinated for coronavirus infection. CXR: Bilateral Pneumonia 04/17: Patient seen and examined, still uncomfortable with Hypoxic respiratory failure and on oxygen, will continue to steroids therapy, start patient on Remd esivir, ID consulted, Pulmonary consult placed. 04/18: Patient seen and examined, she is currently being changed to High flow NC due to worsening HYPOXIA, will transfer to IMCU, Pulmonary and ID following. Will also give a dose of Lasix today. Monitor Inflammatory markers. 04/19: Patient seen and examined still on high flow due to hypoxia. Appears a bit more comfortable today than yesterday. Cough has decreased in frequency. We will continue high dose Dexameathasone to complete 10 days. continue on Remdesivir 200 mg IV q day x 1 followed by 100 mg IV q day x 4 days -Obtain q48-72h inflammatory markers - ferritin, Ddimer, CRP, LDH Will also give lasix daily for the next 3 days and monitor renal function. Family updated. Continue prone positioning as tolerated 04/20: Patient has some desaturation episodes yesterday was placed on BiPAP. Discussed with ICU team for bed availability for patient to be transferred up. Continue prone position as tolerated. 04/21: Patient remains with profound hypoxia secondary to COVID pneumonia. -Continue steroids -Continue remedesir -S/P Actmera 04/22: Patient remains on steroids and remdesivir. ABG shows persistent hypoxia. We will continue current management additional trial of Lasix for the next few days to see if any improvement. Monitor inflammatory markers as needed. Prognosis is guarded remains on high flow 04/23; patient was treated with remdesivir and Actemra. Continue steroid. Patient's prognosis is guarded. 04/24; patient is on steroid. Patient is currently on BiPAP. Prognosis is guarded. Pulmonary is following. Patient was given Lasix and Ativan. 04/25; continue steroid. Patient was on 40 L of high flow oxygen with saturation was 88%. Pulmonary is following. Prognosis is guarded. Patient was given lasix and ativan. 04/26; patient is on BiPAP and Precedex. Prognosis is guarded. 04/27; patient is on BiPAP and Precedex. Patient will finish steroid today and will start on Solu-Medrol tomorrow. Prognosis is guarded. Blood pressure is better today. Hold Lasix. 04/28 patient is on 100 Fio2 via BIPAP. moderately dyspneic, pulmonary note reviewed, lab results reviewed 04/29 no acute events- see systems review above 04/30 no acute events overnight - on airvo today- TPN started -see systems review above 05-01 no acute events overnight- tolerating airvo- see systems review above 05-02 no acute events overnight; tolerating airvo this AM- see systems review above 05/03: Patient remains on full high flow oxygen. No acute events overnight 05/04: Patient remains on BiPAP this morning at 70%. Hospitalist Physical - Physical exam Narrative exam: General appearance: Absent: mild distress, Continues on BiPAP - EENT Eyes: Present: PERRL ENT: hearing intact, clear oral mucosa - Neck Neck: Present: supple, normal ROM - Respiratory Respiratory effort: normal Respiratory: bilateral: Diminished - Cardiovascular Heart Sounds: Present: S1 & S2. Absent: rub, click - Extremities Extremities: pulses symmetrical, No edema Peripheral Pulses: within normal limits - Abdominal General gastrointestinal: Present: soft, non-tender, non-distended, normal bowel sounds Female genitourinary: Present: normal - Integumentary Integumentary: Present: clear, warm, dry - Musculoskeletal Musculoskeletal: gait normal, strength equal bilaterally - Psychiatric Psychiatric: appropriate mood/affect, intact judgment & insight - Neurologic Neurologic: CNII-XII intact, moves all extremities - Constitutional Vitals: Temp Pulse Resp BP Pulse Ox 97.7 F 102 H 27 H 100/48 96 05/04/21 12:06 05/04/21 08:00 05/04/21 08:00 05/04/21 08:00 05/04/21 13:14 General appearance: Present: mild distress Results - Labs CBC & Chem 7: 05/02/21 04:55 05/04/21 08:58 Labs: Laboratory Last Values WBC 7.7 K/mm3 (4.5-11.0) 05/02/21 04:55 RBC 4.55 M/mm3 (3.65-5.03) 05/02/21 04:55 Hgb 13.5 gm/dl (10.1-14.3) 05/02/21 04:55 Hct 40.6 % (30.3-42.9) 05/02/21 04:55 MCV 89 fl (79-97) 05/02/21 04:55 MCH 30 pg (28-32) 05/02/21 04:55 MCHC 33 % (30-34) 05/02/21 04:55 RDW 16.1 % (13.2-15.2) H 05/02/21 04:55 Plt Count 191 K/mm3 (140-440) 05/02/21 04:55 Lymph % (Auto) 7.7 % (13.4-35.0) L 04/17/21 03:50 [place] % (Auto) 2.5 % (0.0-7.3) 04/17/21 03:50 Eos % (Auto) 0.0 % (0.0-4.3) 04/17/21 03:50 Baso % (Auto) 0.0 % (0.0-1.8) 04/17/21 03:50 Lymph # (Auto) 0.6 K/mm3 (1.2-5.4) L 04/17/21 03:50 [place] # (Auto) 0.2 K/mm3 (0.0-0.8) 04/17/21 03:50 Eos # (Auto) 0.0 K/mm3 (0.0-0.4) 04/17/21 03:50 Baso # (Auto) 0.0 K/mm3 (0.0-0.1) 04/17/21 03:50 Seg Neutrophils % 89.8 % (40.0-70.0) H 04/17/21 03:50 Seg Neutrophils # 6.7 K/mm3 (1.8-7.7) 04/17/21 03:50 D-Dimer 1401.08 ng/mlDDU (0-234) H 05/02/21 04:55 ABG pH 7.229 (7.320-7.450) L 05/03/21 04:49 POC ABG pCO2 45.4 mmHg (32.0-48.0) 05/03/21 04:49 ABG pCO2 42.2 mm Hg 04/29/21 14:23 POC ABG pO2 65.3 mmHg (83-108) L 05/03/21 04:49 ABG pO2 52.6 mm Hg (80.0-90.0) L 04/29/21 14:23 POC ABG HCO3 18.5 05/03/21 04:49 ABG HCO3 26.0 mmol/L (20.0-26.0) 04/29/21 14:23 ABG O2 Saturation 88.4 (0-100) 05/03/21 04:49 ABG O2 Content 18.1 (0.0-44) 04/29/21 14:23 POC ABG Base Excess -8.9 05/03/21 04:49 ABG Base Excess 1.1 mmol/L (-2.0-3.0) 04/29/21 14:23 ABG Hemoglobin 15.8 (12.0-17.5) 05/03/21 04:49 ABG Oxyhemoglobin 87.8 (94-98) L 05/03/21 04:49 ABG Carboxyhemoglobin 1.5 % (0.0-5.0) 04/29/21 14:23 ABG Methemoglobin 0.1 (0.0-1.5) 05/03/21 04:49 ABG Sodium 133.0 mmol/L (136.0-145.0) L 05/03/21 04:49 ABG Potassium 3.9 mmol/L (3.40-4.50) 05/03/21 04:49 ABG Chloride 97.0 mmol/L (98-107) L 05/03/21 04:49 ABG Glucose 403 mg/dL (65-95) H 05/03/21 04:49 Oxyhemoglobin 84.6 % (95.0-99.0) L 04/29/21 14:23 Carboxyhemoglobin 0.6 (0.5-1.5) 05/03/21 04:49 FiO2 100 % 04/29/21 14:23 FiO2 % 100.0 05/03/21 04:49 Sodium 134 mmol/L (137-145) L 05/04/21 08:58 Potassium 4.5 mmol/L (3.6-5.0) 05/04/21 08:58 Chloride 98.8 mmol/L (98-107) 05/04/21 08:58 Carbon Dioxide 27 mmol/L (22-30) 05/04/21 08:58 Anion Gap 13 mmol/L 05/04/21 08:58 BUN 20 mg/dL (7-17) H 05/04/21 08:58 Creatinine 0.3 mg/dL (0.6-1.2) L 05/04/21 08:58 Estimated GFR > 60 ml/min 05/04/21 08:58 BUN/Creatinine Ratio 67 % 05/04/21 08:58 Glucose 267 mg/dL (65-100) H 05/04/21 08:58 POC Glucose 244 mg/dL (70-105) H 05/04/21 11:45 Hemoglobin A1c 8.5 % (4-6) H 04/18/21 07:36 Calcium 9.3 mg/dL (8.4-10.2) 05/04/21 08:58 Phosphorus 2.70 mg/dL (2.5-4.5) D 05/04/21 08:58 Magnesium 2.10 mg/dL (1.7-2.3) 05/04/21 08:58 Ferritin 392.0 ng/mL (10.0-200.0) H 04/17/21 08:26 Total Bilirubin 0.30 mg/dL (0.1-1.2) 05/04/21 08:58 AST 32 units/L (5-40) 05/04/21 08:58 ALT 56 units/L (7-56) 05/04/21 08:58 Alkaline Phosphatase 101 units/L (35-129) 05/04/21 08:58 Lactate Dehydrogenase 522 units/L (91-180) H 04/30/21 08:00 C-Reactive Protein 0.10 mg/dL (0.00-1.30) 05/02/21 04:55 Total Protein 6.0 g/dL (6.3-8.2) L 05/04/21 08:58 Albumin 3.2 g/dL (3.9-5) L 05/04/21 08:58 Albumin/Globulin Ratio 1.1 % 05/04/21 08:58 Triglycerides < 9 mg/dL (2-149) 05/03/21 04:30 Procalcitonin < 0.05 ng/mL (<0.15) 04/17/21 08:26 Arterial Blood Glucose 403 mg/dL (65-95) H 05/03/21 04:49 Arterial Blood Ionized Calcium 4.9 mg/dL (4.6-5.3) 05/03/21 04:49 Coronavirus (PCR) Positive (Negative) A 04/17/21 Unknown Amos/IV: Voiding Method External Female Catheter Active Medications - Current Medications Current Medications: Generic Name Dose Route Start Last Admin Trade Name Freq PRN Reason Stop Dose Admin Acetaminophen 650 mg 04/16/21 14:00 04/27/21 18:58 Acetaminophen 325 Mg Tab PO 650 mg Q4H PRN Administration Pain MILD(1-3)/Fever >100.5/[place] Albuterol 2.5 mg 04/16/21 13:39 04/21/21 20:39 Albuterol 2.5 Mg/3 Ml Nebu IH 2.5 mg Q4HRT PRN Administration Shortness Of Breath Artificial Tears 2 drops 04/28/21 18:15 05/01/21 11:29 Hypromellose 0.5% Ophth Soln 15 Ml OU 2 drops Q4H PRN Administration Dry Eye(s) Ascorbic Acid 500 mg 04/24/21 10:00 05/04/21 09:07 Ascorbic Acid 500 Mg Tab PO 500 mg QDAY TUTU Administration Cholecalciferol 1,000 unit 04/17/21 10:00 05/04/21 09:07 Cholecalciferol (Vit D3) 1000 Unit (25 Mcg) Tab PO 1,000 unit QDAY TUTU Administration Dextrose 50 ml 04/18/21 07:30 04/28/21 09:59 Dextrose 50% In Water (25gm) 50 Ml Syringe IV 50 ml Q30MIN PRN Administration Hypoglycemia Protocol Docusate Sodium 100 mg 04/30/21 10:00 05/04/21 09:07 Docusate Sodium 100 Mg Cap PO 100 mg BID TUTU Administration Famotidine 20 mg 05/03/21 11:00 05/04/21 09:07 Famotidine 20 Mg/2 Ml Inj IV 20 mg BID TUTU Administration Heparin Sodium (Porcine) 5,000 unit 04/16/21 22:00 05/04/21 09:07 Heparin 5,000 Unit/1 Ml Vial SUB-Q 5,000 unit Q12HR TUTU Administration Dexmedetomidine HCl 400 mcg/ 104 mls @ 3.604 mls/hr 04/26/21 04:00 05/02/21 10:18 Sodium Chloride IV 0 mcg/kg/hr TITRATE TUTU 0 mls/hr Titration Protocol 0.2 MCG/KG/HR Potassium Chloride 20 meq in 100 mls @ 100 mls/hr 04/30/21 09:25 Kcl 20meq/100ml IV Q1H PRN Potassium 3-3.5 mEq/L Potassium Chloride 20 meq in 100 mls @ 100 mls/hr 04/30/21 09:25 Kcl 20meq/100ml IV Q1H PRN Potassium 2.6-2.9 mEq/L Magnesium Sulfate 1 gm/ Sodium 52 mls @ 26 mls/hr 04/30/21 09:25 Chloride IV Q2H PRN Magnesium level 1.8-2 mg/dL Magnesium Sulfate 2 gm in 50 mls @ 25 mls/hr 04/30/21 09:25 Magnesium Sulfate 2gm/50ml IV Q2H PRN Magnesium level 1.5-1.7 mg/dL Magnesium Sulfate 4 gm in 100 mls @ 25 mls/hr 04/30/21 09:25 Magnesium Sulfate 4gm/100ml IV Q4H PRN Magnesium level < 1.4 mg/dL Sodium Phosphate 15 mmol/ 155 mls @ 40 mls/hr 04/30/21 09:25 Sodium Chloride IV Q4H PRN Phosphorous level 1.2-2.5 mg/d Sodium Phosphate 30 mmol/ 260 mls @ 40 mls/hr 04/30/21 09:25 Sodium Chloride IV Q6H PRN Phosphorous level < 1.2 mg/dL Amino Acids/Electrolytes/Dextrose 1,440 mls @ 60 mls/hr 05/03/21 20:00 05/03/21 20:12 Tpn Adult IV 05/04/21 19:59 60 mls/hr DAILY@2000 TUTU Administration Protocol Amino Acids/Electrolytes/Dextrose 1,440 mls @ 60 mls/hr 05/04/21 20:00 Tpn Adult IV 05/05/21 19:59 DAILY@2000 [facility] Protocol Insulin Glargine 25 units 05/04/21 11:05 Insulin Glargine 100 Units/Ml SUB-Q DAILY [facility] Insulin Human Lispro 0 unit 05/01/21 12:00 05/04/21 12:10 Insulin Lispro 100 Unit/Ml SUB-Q 4 unit Q6HR TUTU Administration Protocol Lorazepam 1 mg 05/02/21 08:56 05/03/21 21:58 Lorazepam 2 Mg/Ml Vial IV 1 mg Q4H PRN Administration Anxiety Methylprednisolone Sodium Succinate 40 mg 04/28/21 14:00 05/04/21 05:46 Methylprednisolone Sod Succinate 40 Mg/1 Ml Inj IV 40 mg Q8HR [facility] Administration Ofloxacin 2 drops 05/02/21 12:00 05/04/21 05:46 Ofloxacin 0.3% Ophth Soln 5 Ml OU 05/07/21 11:59 2 drops Q6HR TUTU Administration Ondansetron HCl 4 mg 04/16/21 14:00 05/03/21 13:19 Ondansetron 4 Mg/2 Ml Inj IV 4 mg Q8H PRN Administration Nausea And Vomiting Polyethylene Glycol 17 gm 05/02/21 16:00 05/04/21 09:06 Polyethylene Glycol 3350 17 Gm Powder PO 17 gm QDAY TUTU Administration Senna 17.2 mg 05/02/21 22:00 05/03/21 21:58 Sennosides 8.6 Mg Tab PO 17.2 mg QHS TUTU Administration Sodium Chloride 10 ml 04/16/21 22:00 05/04/21 09:08 Sodium Chloride 0.9% 10 Ml Flush Syringe IV 10 ml BID TUTU Administration Sodium Chloride 10 ml 04/16/21 13:39 Sodium Chloride 0.9% 10 Ml Flush Syringe IV PRN PRN LINE FLUSH Zinc Sulfate 220 mg 04/16/21 22:00 05/04/21 09:07 Zinc Sulfate 220 Mg Cap PO 220 mg BID TUTU Administration Nutrition/Malnutrition Assess - Dietary Evaluation Nutrition/Malnutrition Findings: Nutrition Notes Start: 04/23/21 07:41 Freq: Status: Active Protocol: Document 05/04/21 10:25 CW (Rec: 05/04/21 11:21 CW [id number]) Nutrition Notes Initial or Follow up Reassessment Current Diagnosis Respiratory Failure Other Pertinent Diagnosis oral thrush, COVID-19 pneu Current Diet cl liq diet Labs/Tests Na 134 BUN 20 BG 267 Pertinent Medications Colace Miralax Lantus Solumedrol Humalog [place] Height 4 ft 11.84 in Weight 67.9 kg [place] Body Weight (kg) 45.09 BMI 29.4 Weight change and time frame weight change noted Weight Status Overweight Subjective/Other Information TPN day 5. Pt now on cl liq. Pt has PIC line placement. Will cotninue to CPN. TPN to continue until at least 75% of EER is met via PO intake Percent of energy/protein needs met: 76%/85% Burn Absent Trauma Absent Current % PO Poor (25-49%) Minimum of two criteria Yes Energy Intake (severe) < or equal to 50% Estimated Energy Requirement > or equal to 5 days Interpretation of Weight Loss (severe) >5% in 1 month #2 Nutrition Diagnosis Malnutrition Diagnosis Progress(for reassessment Continues documentation) #1 Nutrition Diagnosis Inadequate oral intake Diagnosis Progress(for reassessment Continues documentation) Is patient on ventilator? No Is Patient Ambulatory and/or Out of Bed No REE-([facility]-confined to bed) 1471.488 Kcal/Kg value to use for calculation 25 Approximate Energy Requirements Using 1698 kcal/Kg Calculation Used for Recommendations [facility] Additional Notes Pro needs 1.2-2g/k-137g/ day Fluid needs 1ml/kcal Nutrition Intervention Change Diet Order: Advance as tolerated Change to CPN Nutrition Support: TPN via PICC at 60 ml/h Osm: 1048 mOsm; 6.9% D, 5.7% AA; MVI, 58 mEq Na, 30 mEq K, 7 mEq Mg, 10 mmol P, Cl/Acetate 75/25 Kcal 668 Protein (gm) 82 Carbohydrates (gm) 100 Fat (gm) 0 Fluid (mL) 1,440 Fiber (gm) 0 Add Supplement/Snack (indicate name/kcal Ensure Clear TID /protein ) Provides kCal: 540 Provides Protein (gm) 24 Goal #1 PO tolerance Goal #2 Meet at least 75% gisella and pro needs via PO and TPN Goal #3 diet advancement as medically feasible Anticipated Discharge Needs: Unable to determine at this time Follow-Up By: 05/05/21 Additional Comments F/U BMP, Mg, phos in AM
--- NOTE | 2021-05-04 17:10 | Progress Note ---
Assessment and Plan Imp: 1. Covid-19 2. Viral pneumonia 3. Acute respiratory failure, hypoxia Rec: 1. S/p Remdesivir, Actemra 2. Cont. Solumedrol IV 3. SubQ heparin; D-dimer improving 4. Proning 5. Wean HFNC to keep sats 88% or > Subjective Date of service: 05/04/21 Principal diagnosis: Covid-19 Interval history: No events. Awake, alert. On 40LPM and 80% FiO2 HFNC. + SOB and cough. Active Medications Acetaminophen (Acetaminophen 325 Mg Tab) 650 mg PO Q4H PRN PRN Reason: Pain MILD(1-3)/Fever >100.5/[place] Last Admin: 04/27/21 18:58 Dose: 650 mg Documented by: Albuterol (Albuterol 2.5 Mg/3 Ml Nebu) 2.5 mg IH Q4HRT PRN PRN Reason: Shortness Of Breath Last Admin: 04/21/21 20:39 Dose: 2.5 mg Documented by: Artificial Tears (Hypromellose 0.5% Ophth Soln 15 Ml) 2 drops OU Q4H PRN PRN Reason: Dry Eye(s) Last Admin: 05/01/21 11:29 Dose: 2 drops Documented by: Ascorbic Acid (Ascorbic Acid 500 Mg Tab) 500 mg PO QDAY [facility] Last Admin: 05/04/21 09:07 Dose: 500 mg Documented by: Cholecalciferol (Cholecalciferol (Vit D3) 1000 Unit (25 Mcg) Tab) 1,000 unit PO QDAY [facility] Last Admin: 05/04/21 09:07 Dose: 1,000 unit Documented by: Dextrose (Dextrose 50% In Water (25gm) 50 Ml Syringe) 50 ml IV Q30MIN PRN; Protocol PRN Reason: Hypoglycemia Last Admin: 04/28/21 09:59 Dose: 50 ml Documented by: Docusate Sodium (Docusate Sodium 100 Mg Cap) 100 mg PO BID [facility] Last Admin: 05/04/21 09:07 Dose: 100 mg Documented by: Famotidine (Famotidine 20 Mg/2 Ml Inj) 20 mg IV BID [facility] Last Admin: 05/04/21 09:07 Dose: 20 mg Documented by: Heparin Sodium (Porcine) (Heparin 5,000 Unit/1 Ml Vial) 5,000 unit SUB-Q Q12HR [facility] Last Admin: 05/04/21 09:07 Dose: 5,000 unit Documented by: Dexmedetomidine HCl 400 mcg/ (Sodium Chloride) 104 mls @ 3.604 mls/hr IV TITRATE TUTU; Protocol Last Titration: 05/02/21 10:18 Dose: 0 mcg/kg/hr, 0 mls/hr Documented by: Potassium Chloride (Kcl 20meq/100ml) 20 meq in 100 mls @ 100 mls/hr IV Q1H PRN PRN Reason: Potassium 3-3.5 mEq/L Potassium Chloride (Kcl 20meq/100ml) 20 meq in 100 mls @ 100 mls/hr IV Q1H PRN PRN Reason: Potassium 2.6-2.9 mEq/L Magnesium Sulfate 1 gm/ Sodium (Chloride) 52 mls @ 26 mls/hr IV Q2H PRN PRN Reason: Magnesium level 1.8-2 mg/dL Magnesium Sulfate (Magnesium Sulfate 2gm/50ml) 2 gm in 50 mls @ 25 mls/hr IV Q2H PRN PRN Reason: Magnesium level 1.5-1.7 mg/dL Magnesium Sulfate (Magnesium Sulfate 4gm/100ml) 4 gm in 100 mls @ 25 mls/hr IV Q4H PRN PRN Reason: Magnesium level < 1.4 mg/dL Sodium Phosphate 15 mmol/ (Sodium Chloride) 155 mls @ 40 mls/hr IV Q4H PRN PRN Reason: Phosphorous level 1.2-2.5 mg/d Sodium Phosphate 30 mmol/ (Sodium Chloride) 260 mls @ 40 mls/hr IV Q6H PRN PRN Reason: Phosphorous level < 1.2 mg/dL Amino Acids/Electrolytes/Dextrose (Tpn Adult) 1,440 mls @ 60 mls/hr IV DAILY@1999 [facility]; Protocol Stop: 05/04/21 19:59 Last Admin: 05/03/21 20:12 Dose: 60 mls/hr Documented by: Amino Acids/Electrolytes/Dextrose (Tpn Adult) 1,440 mls @ 60 mls/hr IV DAILY@1999 [facility]; Protocol Stop: 05/05/21 19:59 Insulin Glargine (Insulin Glargine 100 Units/Ml) 25 units SUB-Q DAILY [facility] Insulin Human Lispro (Insulin Lispro 100 Unit/Ml) 0 unit SUB-Q Q6HR [facility]; Protocol Last Admin: 05/04/21 17:01 Dose: 6 unit Documented by: Lorazepam (Lorazepam 2 Mg/Ml Vial) 1 mg IV Q4H PRN PRN Reason: Anxiety Last Admin: 05/03/21 21:58 Dose: 1 mg Documented by: Methylprednisolone Sodium Succinate (Methylprednisolone Sod Succinate 40 Mg/1 Ml Inj) 40 mg IV Q8HR [facility] Last Admin: 05/04/21 14:46 Dose: 40 mg Documented by: Ofloxacin (Ofloxacin 0.3% Ophth Soln 5 Ml) 2 drops OU Q6HR [facility] Stop: 05/07/21 11:59 Last Admin: 05/04/21 17:08 Dose: 2 drops Documented by: Ondansetron HCl (Ondansetron 4 Mg/2 Ml Inj) 4 mg IV Q8H PRN PRN Reason: Nausea And Vomiting Last Admin: 05/03/21 13:19 Dose: 4 mg Documented by: Polyethylene Glycol (Polyethylene Glycol 3350 17 Gm Powder) 17 gm PO QDAY [facility] Last Admin: 05/04/21 09:06 Dose: 17 gm Documented by: Senna (Sennosides 8.6 Mg Tab) 17.2 mg PO QHS [facility] Last Admin: 05/03/21 21:58 Dose: 17.2 mg Documented by: Sodium Chloride (Sodium Chloride 0.9% 10 Ml Flush Syringe) 10 ml IV BID [facility] Last Admin: 05/04/21 09:08 Dose: 10 ml Documented by: Sodium Chloride (Sodium Chloride 0.9% 10 Ml Flush Syringe) 10 ml IV PRN PRN PRN Reason: LINE FLUSH Zinc Sulfate (Zinc Sulfate 220 Mg Cap) 220 mg PO BID [facility] Last Admin: 05/04/21 09:07 Dose: 220 mg Documented by: Objective Vital Signs - 12hr 05/04/21 05/04/21 05/04/21 06:00 07:19 08:00 Temperature 98.3 F Pulse Rate 74 102 H Respiratory 23 27 H Rate Blood Pressure 89/46 100/48 O2 Sat by Pulse 95 98 Oximetry 05/04/21 05/04/21 05/04/21 08:05 08:10 10:00 Temperature Pulse Rate 84 Respiratory 31 H Rate Blood Pressure 100/48 O2 Sat by Pulse 98 95 98 Oximetry 05/04/21 05/04/2105/04/21 12:00 12:06 13:14 Temperature 97.7 F Pulse Rate 92 H Respiratory 24 Rate Blood Pressure 97/44 O2 Sat by Pulse 96 96 Oximetry 05/04/21 05/04/21 05/04/21 14:00 16:12 16:55 Temperature 98.3 F Pulse Rate 114 H Respiratory 38 H Rate Blood Pressure 100/46 O2 Sat by Pulse 84 94 Oximetry Constitutional: no acute distress, alert Eyes: non-icteric ENT: oropharynx moist Neck: supple Effort: normal Ascultation: Bilateral: diminished breath sounds Cardiovascular: regular rate and rhythm Gastrointestinal: normoactive bowel sounds, soft, non-tender, non-distended Integumentary: normal Extremities: no cyanosis, no edema, pink and warm Neurologic: normal mental status, non-focal exam, pupils equal and round, CN II- XII normal Psychiatric: mood appropriate, affect normal CBC and BMP: 05/02/21 04:55 05/04/21 08:58 ABG, PT/INR, D-dimer: ABG ABG pH 7.229 (7.320-7.450) L 05/03/21 04:49 POC ABG pCO2 45.4 mmHg (32.0-48.0) 05/03/21 04:49 ABG pCO2 42.2 mm Hg 04/29/21 14:23 POC ABG pO2 65.3 mmHg (83-108) L 05/03/21 04:49 ABG pO2 52.6 mm Hg (80.0-90.0) L 04/29/21 14:23 POC ABG HCO3 18.5 05/03/21 04:49 ABG O2 Saturation 88.4 (0-100) 05/03/21 04:49 PT/INR, D-dimer D-Dimer 1401.08 ng/mlDDU (0-234) H 05/02/21 04:55 Abnormal lab findings: Abnormal Labs 04/16/21 04/16/21 04/16/21 11:42 11:42 11:42 WBC MCHC RDW 16.1 H Lymph % (Auto) 7.8 L Lymph # (Auto) 0.8 L Seg Neutrophils % 87.7 H Seg Neutrophils # 8.5 H D-Dimer 338.70 H ABG pH POC ABG pO2 ABG pO2 ABG O2 Saturation ABG Oxyhemoglobin ABG Sodium ABG Chloride ABG Glucose Oxyhemoglobin Carboxyhemoglobin Sodium Potassium Chloride Carbon Dioxide BUN Creatinine Glucose 194 H POC Glucose Hemoglobin A1c Ferritin AST ALT Alkaline Phosphatase Lactate Dehydrogenase C-Reactive Protein Total Protein 8.4 H Albumin 3.8 L Arterial Blood Glucose Coronavirus (PCR) 04/16/21 04/16/21 04/17/21 11:42 11:42 03:50 WBC MCHC RDW 16.0 H Lymph % (Auto) 7.7 L Lymph # (Auto) 0.6 L Seg Neutrophils % 89.8 H Seg Neutrophils # D-Dimer ABG pH POC ABG pO2 ABG pO2 ABG O2 Saturation ABG Oxyhemoglobin ABG Sodium ABG Chloride ABG Glucose Oxyhemoglobin Carboxyhemoglobin Sodium Potassium Chloride Carbon Dioxide BUN Creatinine Glucose 195 H POC Glucose Hemoglobin A1c Ferritin 254.3 H AST ALT Alkaline Phosphatase Lactate Dehydrogenase 359 H C-Reactive Protein 15.20 H Total Protein Albumin Arterial Blood Glucose Coronavirus (PCR) 04/17/21 04/17/21 04/17/21 03:50 08:26 08:26 WBC MCHC RDW Lymph % (Auto) Lymph # (Auto) Seg Neutrophils % Seg Neutrophils # D-Dimer 262.48 H ABG pH POC ABG pO2 ABG pO2 ABG O2 Saturation ABG Oxyhemoglobin ABG Sodium ABG Chloride ABG Glucose Oxyhemoglobin Carboxyhemoglobin Sodium Potassium Chloride Carbon Dioxide BUN 20 H Creatinine 0.5 L Glucose 249 H 225 H POC Glucose Hemoglobin A1c Ferritin AST ALT Alkaline Phosphatase Lactate Dehydrogenase 338 H C-Reactive Protein 17.20 H Total Protein Albumin 3.2 L Arterial Blood Glucose Coronavirus (PCR) 04/17/21 04/17/21 04/17/21 08:26 15:04 Unknown WBC MCHC RDW Lymph % (Auto) Lymph # (Auto) Seg Neutrophils % Seg Neutrophils # D-Dimer ABG pH POC ABG pO2 ABG pO2 ABG O2 Saturation ABG Oxyhemoglobin ABG Sodium ABG Chloride ABG Glucose Oxyhemoglobin Carboxyhemoglobin Sodium Potassium Chloride Carbon Dioxide BUN 20 H Creatinine 0.5 L Glucose 246 H POC Glucose Hemoglobin A1c Ferritin 392.0 H AST ALT Alkaline Phosphatase Lactate Dehydrogenase C-Reactive Protein Total Protein 8.3 H Albumin 3.1 L Arterial Blood Glucose Coronavirus (PCR) Positive A 04/18/21 04/18/21 04/18/21 05:06 05:06 07:36 WBC 11.6 H MCHC RDW 16.1 H Lymph % (Auto) Lymph # (Auto) Seg Neutrophils % Seg Neutrophils # D-Dimer ABG pH POC ABG pO2 ABG pO2 ABG O2 Saturation ABG Oxyhemoglobin ABG Sodium ABG Chloride ABG Glucose Oxyhemoglobin Carboxyhemoglobin Sodium Potassium 5.2 H Chloride Carbon Dioxide BUN 22 H Creatinine 0.5 L Glucose 315 H POC Glucose Hemoglobin A1c 8.5 H Ferritin AST ALT Alkaline Phosphatase Lactate Dehydrogenase C-Reactive Protein Total Protein Albumin 3.3 L Arterial Blood Glucose Coronavirus (PCR) 04/18/21 04/18/21 04/18/21 11:59 16:43 23:24 WBC MCHC RDW Lymph % (Auto) Lymph # (Auto) Seg Neutrophils % Seg Neutrophils # D-Dimer ABG pH POC ABG pO2 ABG pO2 ABG O2 Saturation ABG Oxyhemoglobin ABG Sodium ABG Chloride ABG Glucose Oxyhemoglobin Carboxyhemoglobin Sodium Potassium Chloride Carbon Dioxide BUN Creatinine Glucose POC Glucose 284 H 273 H 290 H Hemoglobin A1c Ferritin AST ALT Alkaline Phosphatase Lactate Dehydrogenase C-Reactive Protein Total Protein Albumin Arterial Blood Glucose Coronavirus (PCR) 04/19/21 04/19/21 04/19/21 04:19 04:19 08:10 WBC MCHC RDW 15.7 H Lymph % (Auto) Lymph # (Auto) Seg Neutrophils % Seg Neutrophils # D-Dimer ABG pH POC ABG pO2 ABG pO2 ABG O2 Saturation ABG Oxyhemoglobin ABG Sodium ABG Chloride ABG Glucose Oxyhemoglobin Carboxyhemoglobin Sodium Potassium Chloride Carbon Dioxide BUN 27 H Creatinine 0.4 L Glucose 184 H POC Glucose 194 H Hemoglobin A1c Ferritin AST ALT Alkaline Phosphatase Lactate Dehydrogenase C-Reactive Protein Total Protein Albumin 3.1 L Arterial Blood Glucose Coronavirus (PCR) 04/19/21 04/19/21 04/19/21 11:38 16:25 22:04 WBC MCHC RDW Lymph % (Auto) Lymph # (Auto) Seg Neutrophils % Seg Neutrophils # D-Dimer ABG pH POC ABG pO2 ABG pO2 ABG O2 Saturation ABG Oxyhemoglobin ABG Sodium ABG Chloride ABG Glucose Oxyhemoglobin Carboxyhemoglobin Sodium Potassium Chloride Carbon Dioxide BUN Creatinine Glucose POC Glucose 224 H 297 H 251 H Hemoglobin A1c Ferritin AST ALT Alkaline Phosphatase Lactate Dehydrogenase C-Reactive Protein Total Protein Albumin Arterial Blood Glucose Coronavirus (PCR) 04/20/21 04/20/21 04/20/21 05:28 08:43 16:21 WBC MCHC RDW Lymph % (Auto) Lymph # (Auto) Seg Neutrophils % Seg Neutrophils # D-Dimer ABG pH POC ABG pO2 ABG pO2 ABG O2 Saturation ABG Oxyhemoglobin ABG Sodium ABG Chloride ABG Glucose Oxyhemoglobin Carboxyhemoglobin Sodium Potassium Chloride Carbon Dioxide BUN 27 H Creatinine Glucose 192 H POC Glucose 173 H 253 H Hemoglobin A1c Ferritin AST ALT Alkaline Phosphatase Lactate Dehydrogenase C-Reactive Protein Total Protein Albumin 3.0 L Arterial Blood Glucose Coronavirus (PCR) 04/21/21 04/21/21 04/21/21 07:58 12:05 16:08 WBC MCHC RDW Lymph % (Auto) Lymph # (Auto) Seg Neutrophils % Seg Neutrophils # D-Dimer ABG pH POC ABG pO2 ABG pO2 ABG O2 Saturation ABG Oxyhemoglobin ABG Sodium ABG Chloride ABG Glucose Oxyhemoglobin Carboxyhemoglobin Sodium Potassium Chloride Carbon Dioxide BUN Creatinine Glucose POC Glucose 140 H 252 H 214 H Hemoglobin A1c Ferritin AST ALT Alkaline Phosphatase Lactate Dehydrogenase C-Reactive Protein Total Protein Albumin Arterial Blood Glucose Coronavirus (PCR) 04/21/21 04/22/21 04/22/21 21:42 08:37 12:01 WBC MCHC RDW Lymph % (Auto) Lymph # (Auto) Seg Neutrophils % Seg Neutrophils # D-Dimer ABG pH 7.457 H POC ABG pO2 49.4 L ABG pO2 ABG O2 Saturation ABG Oxyhemoglobin 85.6 L ABG Sodium ABG Chloride ABG Glucose 121 H Oxyhemoglobin Carboxyhemoglobin 0.3 L Sodium Potassium Chloride Carbon Dioxide BUN Creatinine Glucose POC Glucose 162 H 227 H Hemoglobin A1c Ferritin AST ALT Alkaline Phosphatase Lactate Dehydrogenase C-Reactive Protein Total Protein Albumin Arterial Blood Glucose 121 H Coronavirus (PCR) 04/22/21 04/22/21 04/23/21 16:26 22:23 04:52 WBC MCHC RDW 15.7 H Lymph % (Auto) Lymph # (Auto) Seg Neutrophils % Seg Neutrophils # D-Dimer ABG pH POC ABG pO2 ABG pO2 ABG O2 Saturation ABG Oxyhemoglobin ABG Sodium ABG Chloride ABG Glucose Oxyhemoglobin Carboxyhemoglobin Sodium Potassium Chloride Carbon Dioxide BUN Creatinine Glucose POC Glucose 200 H 136 H Hemoglobin A1c Ferritin AST ALT Alkaline Phosphatase Lactate Dehydrogenase C-Reactive Protein Total Protein Albumin Arterial Blood Glucose Coronavirus (PCR) 04/23/21 04/23/21 04/23/21 04:52 12:06 17:41 WBC MCHC RDW Lymph % (Auto) Lymph # (Auto) Seg Neutrophils % Seg Neutrophils # D-Dimer ABG pH POC ABG pO2 ABG pO2 ABG O2 Saturation ABG Oxyhemoglobin ABG Sodium ABG Chloride ABG Glucose Oxyhemoglobin Carboxyhemoglobin Sodium 136 L Potassium Chloride 97.7 L Carbon Dioxide BUN 23 H Creatinine Glucose 101 H POC Glucose 202 H 169 H Hemoglobin A1c Ferritin AST 46 H ALT Alkaline Phosphatase Lactate Dehydrogenase C-Reactive Protein Total Protein Albumin 3.3 L Arterial Blood Glucose Coronavirus (PCR) 04/23/21 04/24/21 04/24/21 23:08 05:17 08:38 WBC MCHC RDW Lymph % (Auto) Lymph # (Auto) Seg Neutrophils % Seg Neutrophils # D-Dimer ABG pH POC ABG pO2 ABG pO2 ABG O2 Saturation ABG Oxyhemoglobin ABG Sodium ABG Chloride ABG Glucose Oxyhemoglobin Carboxyhemoglobin Sodium Potassium Chloride Carbon Dioxide BUN Creatinine Glucose POC Glucose 111 H 108 H 126 H Hemoglobin A1c Ferritin AST ALT Alkaline Phosphatase Lactate Dehydrogenase C-Reactive Protein Total Protein Albumin Arterial Blood Glucose Coronavirus (PCR) 04/24/21 04/24/21 04/24/21 11:54 17:57 21:23 WBC MCHC RDW Lymph % (Auto) Lymph # (Auto) Seg Neutrophils % Seg Neutrophils # D-Dimer ABG pH POC ABG pO2 ABG pO2 ABG O2 Saturation ABG Oxyhemoglobin ABG Sodium ABG Chloride ABG Glucose Oxyhemoglobin Carboxyhemoglobin Sodium Potassium Chloride Carbon Dioxide BUN Creatinine Glucose POC Glucose 147 H 177 H 138 H Hemoglobin A1c Ferritin AST ALT Alkaline Phosphatase Lactate Dehydrogenase C-Reactive Protein Total Protein Albumin Arterial Blood Glucose Coronavirus (PCR) 04/25/21 04/25/21 04/25/21 07:06 11:23 15:43 WBC MCHC RDW Lymph % (Auto) Lymph # (Auto) Seg Neutrophils % Seg Neutrophils # D-Dimer ABG pH POC ABG pO2 ABG pO2 ABG O2 Saturation ABG Oxyhemoglobin ABG Sodium ABG Chloride ABG Glucose Oxyhemoglobin Carboxyhemoglobin Sodium Potassium Chloride Carbon Dioxide BUN Creatinine Glucose POC Glucose 147 H 169 H 227 H Hemoglobin A1c Ferritin AST ALT Alkaline Phosphatase Lactate Dehydrogenase C-Reactive Protein Total Protein Albumin Arterial Blood Glucose Coronavirus (PCR) 04/25/21 04/26/21 04/26/21 21:22 02:45 05:15 WBC MCHC RDW Lymph % (Auto) Lymph # (Auto) Seg Neutrophils % Seg Neutrophils # D-Dimer ABG pH POC ABG pO2 70.7 L ABG pO2 ABG O2 Saturation ABG Oxyhemoglobin 93.0 L ABG Sodium 132.7 L ABG Chloride ABG Glucose 115 H Oxyhemoglobin Carboxyhemoglobin Sodium Potassium Chloride 95.8 L Carbon Dioxide 32 H BUN 20 H Creatinine Glucose 102 H POC Glucose 196 H Hemoglobin A1c Ferritin AST ALT Alkaline Phosphatase Lactate Dehydrogenase C-Reactive Protein Total Protein Albumin Arterial Blood Glucose 115 H Coronavirus (PCR) 04/26/21 04/26/21 04/26/21 11:49 16:09 21:07 WBC MCHC RDW Lymph % (Auto) Lymph # (Auto) Seg Neutrophils % Seg Neutrophils # D-Dimer ABG pH POC ABG pO2 ABG pO2 ABG O2 Saturation ABG Oxyhemoglobin ABG Sodium ABG Chloride ABG Glucose Oxyhemoglobin Carboxyhemoglobin Sodium Potassium Chloride Carbon Dioxide BUN Creatinine Glucose POC Glucose 114 H 188 H 136 H Hemoglobin A1c Ferritin AST ALT Alkaline Phosphatase Lactate Dehydrogenase C-Reactive Protein Total Protein Albumin Arterial Blood Glucose Coronavirus (PCR) 04/27/21 04/27/21 04/28/21 17:34 22:12 08:26 WBC MCHC RDW Lymph % (Auto) Lymph # (Auto) Seg Neutrophils % Seg Neutrophils # D-Dimer ABG pH POC ABG pO2 ABG pO2 ABG O2 Saturation ABG Oxyhemoglobin ABG Sodium ABG Chloride ABG Glucose Oxyhemoglobin Carboxyhemoglobin Sodium Potassium Chloride Carbon Dioxide BUN Creatinine Glucose POC Glucose 128 H 159 H 69 L Hemoglobin A1c Ferritin AST ALT Alkaline Phosphatase Lactate Dehydrogenase C-Reactive Protein Total Protein Albumin Arterial Blood Glucose Coronavirus (PCR) 04/28/21 04/28/21 04/29/21 12:22 21:11 06:05 WBC MCHC RDW Lymph % (Auto) Lymph # (Auto) Seg Neutrophils % Seg Neutrophils # D-Dimer ABG pH POC ABG pO2 ABG pO2 ABG O2 Saturation ABG Oxyhemoglobin ABG Sodium ABG Chloride ABG Glucose Oxyhemoglobin Carboxyhemoglobin Sodium 132 L Potassium Chloride 94.4 L Carbon Dioxide BUN Creatinine 0.2 L D Glucose 140 H POC Glucose 141 H 171 H Hemoglobin A1c Ferritin AST ALT Alkaline Phosphatase Lactate Dehydrogenase C-Reactive Protein Total Protein Albumin Arterial Blood Glucose Coronavirus (PCR) 04/29/21 04/29/21 04/29/21 06:05 07:24 11:36 WBC MCHC 35 H RDW 15.9 H Lymph % (Auto) Lymph # (Auto) Seg Neutrophils % Seg Neutrophils # D-Dimer ABG pH POC ABG pO2 ABG pO2 ABG O2 Saturation ABG Oxyhemoglobin ABG Sodium ABG Chloride ABG Glucose Oxyhemoglobin Carboxyhemoglobin Sodium Potassium Chloride Carbon Dioxide BUN Creatinine Glucose POC Glucose 141 H 220 H Hemoglobin A1c Ferritin AST ALT Alkaline Phosphatase Lactate Dehydrogenase C-Reactive Protein Total Protein Albumin Arterial Blood Glucose Coronavirus (PCR) 04/29/21 04/29/21 04/29/21 14:23 15:30 17:06 WBC MCHC RDW Lymph % (Auto) Lymph # (Auto) Seg Neutrophils % Seg Neutrophils # D-Dimer ABG pH POC ABG pO2 ABG pO2 52.6 L ABG O2 Saturation 86.4 L ABG Oxyhemoglobin ABG Sodium ABG Chloride ABG Glucose Oxyhemoglobin 84.6 L Carboxyhemoglobin Sodium Potassium Chloride Carbon Dioxide BUN Creatinine Glucose POC Glucose 173 H 158 H Hemoglobin A1c Ferritin AST ALT Alkaline Phosphatase Lactate Dehydrogenase C-Reactive Protein Total Protein Albumin Arterial Blood Glucose Coronavirus (PCR) 04/29/21 04/30/21 04/30/21 21:27 07:16 08:00 WBC MCHC RDW 16.1 H Lymph % (Auto) Lymph # (Auto) Seg Neutrophils % Seg Neutrophils # D-Dimer ABG pH POC ABG pO2 ABG pO2 ABG O2 Saturation ABG Oxyhemoglobin ABG Sodium ABG Chloride ABG Glucose Oxyhemoglobin Carboxyhemoglobin Sodium Potassium Chloride Carbon Dioxide BUN Creatinine Glucose POC Glucose 244 H 175 H Hemoglobin A1c Ferritin AST ALT Alkaline Phosphatase Lactate Dehydrogenase C-Reactive Protein Total Protein Albumin Arterial Blood Glucose Coronavirus (PCR) 04/30/21 04/30/21 04/30/21 08:00 08:00 11:03 WBC MCHC RDW Lymph % (Auto) Lymph # (Auto) Seg Neutrophils % Seg Neutrophils # D-Dimer 1796.87 H ABG pH POC ABG pO2 ABG pO2 ABG O2 Saturation ABG Oxyhemoglobin ABG Sodium ABG Chloride ABG Glucose Oxyhemoglobin Carboxyhemoglobin Sodium 135 L Potassium Chloride 96.3 L Carbon Dioxide BUN Creatinine 0.2 L Glucose 153 H POC Glucose 183 H Hemoglobin A1c Ferritin AST 41 H ALT 76 H Alkaline Phosphatase 160 H Lactate Dehydrogenase 522 H C-Reactive Protein Total Protein 6.1 L Albumin 3.1 L Arterial Blood Glucose Coronavirus (PCR) 04/30/21 04/30/21 05/01/21 17:04 22:17 05:39 WBC MCHC RDW Lymph % (Auto) Lymph # (Auto) Seg Neutrophils % Seg Neutrophils # D-Dimer ABG pH POC ABG pO2 ABG pO2 ABG O2 Saturation ABG Oxyhemoglobin ABG Sodium ABG Chloride ABG Glucose Oxyhemoglobin Carboxyhemoglobin Sodium 133 L Potassium Chloride 92.1 L Carbon Dioxide BUN 24 H Creatinine 0.4 L D Glucose 269 H POC Glucose 167 H 208 H Hemoglobin A1c Ferritin AST ALT 66 H Alkaline Phosphatase 142 H Lactate Dehydrogenase C-Reactive Protein Total Protein Albumin 3.2 L Arterial Blood Glucose Coronavirus (PCR) 05/01/21 05/01/21 05/01/21 05:39 05:39 07:45 WBC MCHC RDW 16.0 H Lymph % (Auto) Lymph # (Auto) Seg Neutrophils % Seg Neutrophils # D-Dimer 3984.95 H ABG pH POC ABG pO2 ABG pO2 ABG O2 Saturation ABG Oxyhemoglobin ABG Sodium ABG Chloride ABG Glucose Oxyhemoglobin Carboxyhemoglobin Sodium Potassium Chloride Carbon Dioxide BUN Creatinine Glucose POC Glucose 229 H Hemoglobin A1c Ferritin AST ALT Alkaline Phosphatase Lactate Dehydrogenase C-Reactive Protein Total Protein Albumin Arterial Blood Glucose Coronavirus (PCR) 05/01/21 05/01/21 05/01/21 12:10 15:46 21:06 WBC MCHC RDW Lymph % (Auto) Lymph # (Auto) Seg Neutrophils % Seg Neutrophils # D-Dimer ABG pH POC ABG pO2 ABG pO2 ABG O2 Saturation ABG Oxyhemoglobin ABG Sodium ABG Chloride ABG Glucose Oxyhemoglobin Carboxyhemoglobin Sodium Potassium Chloride Carbon Dioxide BUN Creatinine Glucose POC Glucose 296 H 279 H 232 H Hemoglobin A1c Ferritin AST ALT Alkaline Phosphatase Lactate Dehydrogenase C-Reactive Protein Total Protein Albumin Arterial Blood Glucose Coronavirus (PCR) 05/02/21 05/02/21 05/02/21 04:55 04:55 04:55 WBC MCHC RDW 16.1 H Lymph % (Auto) Lymph # (Auto) Seg Neutrophils % Seg Neutrophils # D-Dimer 1401.08 H ABG pH POC ABG pO2 ABG pO2 ABG O2 Saturation ABG Oxyhemoglobin ABG Sodium ABG Chloride ABG Glucose Oxyhemoglobin Carboxyhemoglobin Sodium 131 L Potassium Chloride 95.5 L Carbon Dioxide BUN 20 H Creatinine 0.3 L Glucose 288 H POC Glucose Hemoglobin A1c Ferritin AST ALT Alkaline Phosphatase Lactate Dehydrogenase C-Reactive Protein Total Protein 6.0 L Albumin 3.1 L Arterial Blood Glucose Coronavirus (PCR) 05/02/21 05/02/21 05/02/21 07:53 11:45 15:25 WBC MCHC RDW Lymph % (Auto) Lymph # (Auto) Seg Neutrophils % Seg Neutrophils # D-Dimer ABG pH POC ABG pO2 ABG pO2 ABG O2 Saturation ABG Oxyhemoglobin ABG Sodium ABG Chloride ABG Glucose Oxyhemoglobin Carboxyhemoglobin Sodium Potassium Chloride Carbon Dioxide BUN Creatinine Glucose POC Glucose 180 H 228 H 275 H Hemoglobin A1c Ferritin AST ALT Alkaline Phosphatase Lactate Dehydrogenase C-Reactive Protein Total Protein Albumin Arterial Blood Glucose Coronavirus (PCR) 05/02/21 05/03/21 05/03/21 22:56 04:30 04:49 WBC MCHC RDW Lymph % (Auto) Lymph # (Auto) Seg Neutrophils % Seg Neutrophils # D-Dimer ABG pH 7.229 L POC ABG pO2 65.3 L ABG pO2 ABG O2 Saturation ABG Oxyhemoglobin 87.8 L ABG Sodium 133.0 L ABG Chloride 97.0 L ABG Glucose 403 H Oxyhemoglobin Carboxyhemoglobin Sodium 130 L Potassium Chloride 94.9 L Carbon Dioxide BUN 20 H Creatinine 0.5 L D Glucose 359 H POC Glucose 293 H Hemoglobin A1c Ferritin AST 54 H ALT 75 H Alkaline Phosphatase 138 H Lactate Dehydrogenase C-Reactive Protein Total Protein Albumin 3.6 L Arterial Blood Glucose 403 H Coronavirus (PCR) 05/03/21 05/03/21 05/03/21 05:27 11:26 17:57 WBC MCHC RDW Lymph % (Auto) Lymph # (Auto) Seg Neutrophils % Seg Neutrophils # D-Dimer ABG pH POC ABG pO2 ABG pO2 ABG O2 Saturation ABG Oxyhemoglobin ABG Sodium ABG Chloride ABG Glucose Oxyhemoglobin Carboxyhemoglobin Sodium Potassium Chloride Carbon Dioxide BUN Creatinine Glucose POC Glucose 361 H 297 H 226 H Hemoglobin A1c Ferritin AST ALT Alkaline Phosphatase Lactate Dehydrogenase C-Reactive Protein Total Protein Albumin Arterial Blood Glucose Coronavirus (PCR) 05/03/21 05/04/21 05/04/21 23:12 05:12 07:30 WBC MCHC RDW Lymph % (Auto) Lymph # (Auto) Seg Neutrophils % Seg Neutrophils # D-Dimer ABG pH POC ABG pO2 ABG pO2 ABG O2 Saturation ABG Oxyhemoglobin ABG Sodium ABG Chloride ABG Glucose Oxyhemoglobin Carboxyhemoglobin Sodium Potassium Chloride Carbon Dioxide BUN Creatinine Glucose POC Glucose 282 H 285 H 254 H Hemoglobin A1c Ferritin AST ALT Alkaline Phosphatase Lactate Dehydrogenase C-Reactive Protein Total Protein Albumin Arterial Blood Glucose Coronavirus (PCR) 05/04/21 05/04/21 05/04/21 08:58 11:45 16:07 WBC MCHC RDW Lymph % (Auto) Lymph # (Auto) Seg Neutrophils % Seg Neutrophils # D-Dimer ABG pH POC ABG pO2 ABG pO2 ABG O2 Saturation ABG Oxyhemoglobin ABG Sodium ABG Chloride ABG Glucose Oxyhemoglobin Carboxyhemoglobin Sodium 134 L Potassium Chloride Carbon Dioxide BUN 20 H Creatinine 0.3 L Glucose 267 H POC Glucose 244 H 297 H Hemoglobin A1c Ferritin AST ALT Alkaline Phosphatase Lactate Dehydrogenase C-Reactive Protein Total Protein 6.0 L Albumin 3.2 L Arterial Blood Glucose Coronavirus (PCR) Chest x-ray: report reviewed, image reviewed
[2021-05-04] MEDS ORDERED: DEXTROSE 10% IN WATER 1,000 ML IV SCH (18:00)
[2021-05-04] MEDS ORDERED: TOTAL PARENTERAL NUTRITION 1,440 ML IV SCH (20:00)
[2021-05-04] MEDS: LORazepam 2 MG/ML VIAL IV PRN (22:13)
[2021-05-04] MEDS: SENNOSIDES 8.6 MG TAB PO SCH (22:13)
[2021-05-05] MEDS: OFLOXACIN 0.3% OPHTH SOLN 5 ML OU SCH ×4 (03:42→17:56)
[2021-05-05] MEDS: ZINC SULFATE 220 MG CAP PO SCH ×3 (04:05→22:18)
[2021-05-05 05:19] LABS: Alanine Aminotransferase 67 units/L (7-56); Albumin 3.2 g/dL (3.9-5); Blood Urea Nitrogen 22 mg/dL (7-17); Calcium 9.3 mg/dL (8.4-10.2); Hemolysis Index 2
[2021-05-05 05:33] LABS: BUN/Creatinine Ratio 73
[2021-05-05] MEDS: methylPREDNISolone Sod Succinate 40 MG/1 ML INJ IV SCH ×3 (05:56→22:18)
[2021-05-05] MEDS: INSULIN LISPRO 100 UNIT/ML SUB-Q SCH ×4 (05:57→17:56)
[2021-05-05] MEDS: HEPARIN 5,000 UNIT/1 ML VIAL SUB-Q SCH ×2 (09:20→22:18)
[2021-05-05] MEDS: INSULIN GLARGINE 100 UNITS/ML SUB-Q SCH (09:20)
[2021-05-05] MEDS: FAMOTIDINE 20 MG/2 ML INJ IV SCH ×2 (09:20→22:18)
[2021-05-05] MEDS: ASCORBIC ACID 500 MG TAB PO SCH (09:21)
[2021-05-05] MEDS: CHOLECALCIFEROL (VIT D3) 1000 UNIT (25 mcg) TAB PO SCH (09:21)
[2021-05-05] MEDS: DOCUSATE SODIUM 100 MG CAP PO SCH ×2 (09:21→22:18)
[2021-05-05] MEDS: POLYETHYLENE GLYCOL 3350 17 GM POWDER PO SCH (09:22)
--- NOTE | 2021-05-05 10:47 | Progress Note ---
Assessment and Plan Assessment and plan: Assessment and Plan Assessment and plan: 65 YO Male HTN, [place], CAD S/P Stent placement, DM, Obesity Hypoventilation Syndrome, CHF, currently on therapeutic anticoagulation with xarelto for unknown condition presents to ED for evaluation. Patient is confused with diminished cognition and provides minimal history. Patient history taken from EMS staff, ED staff, as well as law enforcement. Patient reports "I was just with the police today". Staff reports that patient was found down lying in the grass. Patient was also confused. EMS was notified and upon arrival the patient was found to be in distress and subsequently transported to [facility] for further care and evaluation of the aforementioned symptoms. Patient was seen and evaluated in the emergency department. All lab and imaging studies reviewed. Patient was found to have a pulse oximetry of 79% on room air in the emergency department which is consistent with acute hypoxemic respiratory failure. Chest x-ray revealed pneumonia. Patient admitted to medical floor and initiated on pneumonia protocol as well as coronavirus protocol. No additional history is obtainable. Patient has diminished cognition but has a positive gag reflex and is able to protect his airway without difficulty. Advanced care planning conducted in ED. No prior admission for review. All medication listed at time of admission has been reconciled. Acute hypoxic respiratory failure Patient is on 15 L oxygen Pulmonary note reviewed and appreciated Continue Decadron Bilateral pneumonia/COVID-19 pneumonia Completed remdesivir therapy Sepsis. Patient meets criteria given the altered mentation, tachypnea and diagnosis of bilateral pneumonia Toxic metabolic encephalopathy. Significant improvement he is alert and oriented although noncompliant with keeping his oxygen and also giving hard time to take his medications Patient is restrained as he is not keeping his oxygen I had a long discussion with the patient and he agrees to keep the oxygen on and also agrees to take medications and in fact he took medications in front of me Acute kidney injury Resolved Nephrology following EtOH dependence with possible withdrawal and DTs Resolving CHF exacerbation Fluid restriction History of chronic pain syndrome States he has pain in the shoulder and back and legs and states he takes morphine and oxycodone at home Continue Percocet as needed 04/21/2021. Await echocardiogram to assess for systolic or diastolic dysfunction. Follow-up Covid PCR. Continue to trend inflammatory markers. Consider ID and cardiology consultations. 04/22/2021. COVID-19 PCR positive on 04/21/2021. Patient currently requiring high flow nasal cannula at 15 L. Start dexamethasone 6 mg IV daily. Await ID recommendations regarding remdesivir. Unfortunately, patient with renal insufficiency. However, creatinine has improved from 3.7-2.1. We do not have a baseline creatinine to compare. Check renal ultrasound. We may be able to start remdesivir if creatinine continues to improve. Nephrology consultation. Patient remains encephalopathic requiring four-point restraints. Continue to treat underlying causes of sepsis/pneumonia/acute kidney injury. 04/23; patient is on 15 L of high flow oxygen with FiO2 of 60%. Patient is on dexamethasone and remdesivir. RIGO resolved, creatinine this morning was 1.2. ID consult appreciated. Patient is on restraints due to metabolic encephalopathy. 04/24; patient is on 15L of high flow oxygen. Patient is on dexamethasone and remdesivir. 04/25; patient was on 15 L of high flow oxygen. Continue with remdesivir and Decadron. Patient is encephalopathic. Patient has hypokalemia this morning and repleted according to electrolyte replacement protocol. Blood sugar is uncontrolled and I increase Lantus to 30 units and Humalog AC insulin to 10 units. Monitor blood sugar. Blood pressure is uncontrolled and I put him on as needed hydralazine and amlodipine. Monitor blood pressure. Prognosis is guarded. 04/26; patient is on 15 L of oxygen, continue remdesivir and Decadron. Patient is still confused, on four-point restraints. Patient has hypernatremia and I put him on D5W at 75 mL/h. I adjusted his insulin. We'll give him Lasix and will check chest x-ray. 04/27; patient is on 15 L of oxygen, on four-point restraints. Morning labs are pending. Chest x-ray reviewed. Pulmonary and ID consult appreciated. 04/28 patient is alert and oriented, he has soft wrist restraints, secondary to not keeping his oxygen. Lab results reviewed. Pulmonary and nephrology notes reviewed. Overall patient offers no specific complaints. Denies chest pain or shortness of breath. Denies fever or chills 04/29: Patient remains on restraints due to taking his oxygen off and patricia aturating. Remains on 15 L asked team to see how much we can wean him today. Pulmonary input noted continues on Lasix and steroid therapy. We will start him on CIWA protocol, some vitamins for possible underlying DTs. Monitor for aspiration precautions. 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 Not much tremors noted today. We will continue CIWA protocol. We will try to wean oxygen today further to see how he tolerates it. Agree with Lasix. Plan discussed with nursing staff and patient. 05/01: Patient's mental status is improved. No further DTs noted. He continues to show some improvement he is off restraints at this time. And has been on for 24 hours. He did have episode of desaturation yesterday to 88% and required to go back up to 12 L. We will try to wean him back down to 10 L today. 05/02: Patient saturation continues to fluctuate was 89% this morning on 12 L. It did show some improvement to 92%. We will continue to monitor mental status slowly improving. Sometimes he has the same question twice. Multiple evidence of DTs. Will discontinue IV thiamine at this time. Patient has completed remdesivir and will continue on steroids. Repeat chest x-ray shows persistent bilateral infiltrates. No new fever. Patient will likely need LTAC placement for slow weaning of oxygen. 05/03: Patient has shown remarkable improvement, weaned down to 3 L and satting 95%. Will attempt to walk test today in anticipation for discharge tomorrow. Discussed with PT team to walk the patient today also. 05/04: Patient appears to have had a decline he was down to 3 L satting 95% with anticipation for discharge today but desatted down to 85% on room air and only 88% on 5 L he is now back at 8 L. I encourage incentive spirometer. While he is on Xarelto and has completed the severe steroids which was subsequently changed to Solu-Medrol I will go ahead and order a CTA to make sure that there is not a failure of Xarelto. We will continue to wean as tolerated discussed with nursing staff at bedside. 05/05/21 Patient is on 40 L of oxygen with 80% FiO2. Patient is encouraged to turn to the side more frequently. Patient is denied any shortness of breath and coughing. No other complaints. Follow the CT scan of the chest. Status post remdesivir and Actemra.Solu-Medrol 40 mg IV every 8 hours. Continue current management. Pulmonary follow-up. History Interval history: Patient is seen and examined. Lab and medication is reviewed. Patient shortness of breath is improving. No coughing. Patient is on 40 L of oxygen with 80% FiO2. Patient is encouraged to turn to the side more frequently. No other complaints Hospitalist Physical - Constitutional Vitals: Temp Pulse Resp BP Pulse Ox 98.0 F 80 24 93/44 99 05/05/21 07:17 05/05/21 08:00 05/05/21 08:00 05/05/21 08:00 05/05/21 08:00 General appearance: Present: mild distress - EENT Eyes: Present: PERRL, EOM intact ENT: hearing intact, clear oral mucosa, dentition normal - Neck Neck: Present: supple, normal ROM - Respiratory Respiratory effort: normal Respiratory: bilateral: diminished - Cardiovascular Rhythm: regular Heart Sounds: Present: S1 & S2 - Extremities Extremities: no ischemia, No edema Peripheral Pulses: within normal limits - Abdominal General gastrointestinal: soft, non-tender, non-distended, normal bowel sounds - Integumentary Integumentary: Present: clear, warm, dry, erythema - Psychiatric Psychiatric: appropriate mood/affect, intact judgment & insight - Neurologic Neurologic: CNII-XII intact, moves all extremities - Allied Health Allied health notes reviewed: nursing, case management Results - Labs CBC & Chem 7: 05/02/21 04:55 05/05/21 05:00 Labs: Laboratory Last Values WBC 7.7 K/mm3 (4.5-11.0) 05/02/21 04:55 RBC 4.55 M/mm3 (3.65-5.03) 05/02/21 04:55 Hgb 13.5 gm/dl (10.1-14.3) 05/02/21 04:55 Hct 40.6 % (30.3-42.9) 05/02/21 04:55 MCV 89 fl (79-97) 05/02/21 04:55 MCH 30 pg (28-32) 05/02/21 04:55 MCHC 33 % (30-34) 05/02/21 04:55 RDW 16.1 % (13.2-15.2) H 05/02/21 04:55 Plt Count 191 K/mm3 (140-440) 05/02/21 04:55 Lymph % (Auto) 7.7 % (13.4-35.0) L 04/17/21 03:50 [place] % (Auto) 2.5 % (0.0-7.3) 04/17/21 03:50 Eos % (Auto) 0.0 % (0.0-4.3) 04/17/21 03:50 Baso % (Auto) 0.0 % (0.0-1.8) 04/17/21 03:50 Lymph # (Auto) 0.6 K/mm3 (1.2-5.4) L 04/17/21 03:50 [place] # (Auto) 0.2 K/mm3 (0.0-0.8) 04/17/21 03:50 Eos # (Auto) 0.0 K/mm3 (0.0-0.4) 04/17/21 03:50 Baso # (Auto) 0.0 K/mm3 (0.0-0.1) 04/17/21 03:50 Seg Neutrophils % 89.8 % (40.0-70.0) H 04/17/21 03:50 Seg Neutrophils # 6.7 K/mm3 (1.8-7.7) 04/17/21 03:50 D-Dimer 1401.08 ng/mlDDU (0-234) H 05/02/21 04:55 ABG pH 7.229 (7.320-7.450) L 05/03/21 04:49 POC ABG pCO2 45.4 mmHg (32.0-48.0) 05/03/21 04:49 ABG pCO2 42.2 mm Hg 04/29/21 14:23 POC ABG pO2 65.3 mmHg (83-108) L 05/03/21 04:49 ABG pO2 52.6 mm Hg (80.0-90.0) L 04/29/21 14:23 POC ABG HCO3 18.5 05/03/21 04:49 ABG HCO3 26.0 mmol/L (20.0-26.0) 04/29/21 14:23 ABG O2 Saturation 88.4 (0-100) 05/03/21 04:49 ABG O2 Content 18.1 (0.0-44) 04/29/21 14:23 POC ABG Base Excess -8.9 05/03/21 04:49 ABG Base Excess 1.1 mmol/L (-2.0-3.0) 04/29/21 14:23 ABG Hemoglobin 15.8 (12.0-17.5) 05/03/21 04:49 ABG Oxyhemoglobin 87.8 (94-98) L 05/03/21 04:49 ABG Carboxyhemoglobin 1.5 % (0.0-5.0) 04/29/21 14:23 ABG Methemoglobin 0.1 (0.0-1.5) 05/03/21 04:49 ABG Sodium 133.0 mmol/L (136.0-145.0) L 05/03/21 04:49 ABG Potassium 3.9 mmol/L (3.40-4.50) 05/03/21 04:49 ABG Chloride 97.0 mmol/L (98-107) L 05/03/21 04:49 ABG Glucose 403 mg/dL (65-95) H 05/03/21 04:49 Oxyhemoglobin 84.6 % (95.0-99.0) L 04/29/21 14:23 Carboxyhemoglobin 0.6 (0.5-1.5) 05/03/21 04:49 FiO2 100 % 04/29/21 14:23 FiO2 % 100.0 05/03/21 04:49 Sodium 132 mmol/L (137-145) L 05/05/21 05:00 Potassium 4.2 mmol/L (3.6-5.0) 05/05/21 05:00 Chloride 96.4 mmol/L (98-107) L 05/05/21 05:00 Carbon Dioxide 27 mmol/L (22-30) 05/05/21 05:00 Anion Gap 13 mmol/L 05/05/21 05:00 BUN 22 mg/dL (7-17) H 05/05/21 05:00 Creatinine 0.3 mg/dL (0.6-1.2) L 05/05/21 05:00 Estimated GFR > 60 ml/min 05/05/21 05:00 BUN/Creatinine Ratio 73 % 05/05/21 05:00 Glucose 228 mg/dL (65-100) H 05/05/21 05:00 POC Glucose 260 mg/dL (70-105) H 05/05/21 05:13 Hemoglobin A1c 8.5 % (4-6) H 04/18/21 07:36 Calcium 9.3 mg/dL (8.4-10.2) 05/05/21 05:00 Phosphorus 4.00 mg/dL (2.5-4.5) D 05/05/21 05:00 Magnesium 2.00 mg/dL (1.7-2.3) 05/05/21 05:00 Ferritin 392.0 ng/mL (10.0-200.0) H 04/17/21 08:26 Total Bilirubin 0.40 mg/dL (0.1-1.2) 05/05/21 05:00 AST 35 units/L (5-40) 05/05/21 05:00 ALT 67 units/L (7-56) H 05/05/21 05:00 Alkaline Phosphatase 105 units/L (35-129) 05/05/21 05:00 Lactate Dehydrogenase 522 units/L (91-180) H 04/30/21 08:00 C-Reactive Protein 0.10 mg/dL (0.00-1.30) 05/02/21 04:55 Total Protein 6.1 g/dL (6.3-8.2) L 05/05/21 05:00 Albumin 3.2 g/dL (3.9-5) L 05/05/21 05:00 Albumin/Globulin Ratio 1.1 % 05/05/21 05:00 Triglycerides < 9 mg/dL (2-149) 05/03/21 04:30 Procalcitonin < 0.05 ng/mL (<0.15) 04/17/21 08:26 Arterial Blood Glucose 403 mg/dL (65-95) H 05/03/21 04:49 Arterial Blood Ionized Calcium 4.9 mg/dL (4.6-5.3) 05/03/21 04:49 Coronavirus (PCR) Positive (Negative) A 04/17/21 Unknown - Imaging and Cardiology CT scan - chest: pending Amos/IV: Voiding Method External Female Catheter Active Medications - Current Medications Current Medications: Generic Name Dose Route Start Last Admin Trade Name Freq PRN Reason Stop Dose Admin Acetaminophen 650 mg 04/16/21 14:00 04/27/21 18:58 Acetaminophen 325 Mg Tab PO 650 mg Q4H PRN Administration Pain MILD(1-3)/Fever >100.5/[place] Albuterol 2.5 mg 04/16/21 13:39 04/21/21 20:39 Albuterol 2.5 Mg/3 Ml Nebu IH 2.5 mg Q4HRT PRN Administration Shortness Of Breath Artificial Tears 2 drops 04/28/21 18:15 05/01/21 11:29 Hypromellose 0.5% Ophth Soln 15 Ml OU 2 drops Q4H PRN Administration Dry Eye(s) Ascorbic Acid 500 mg 04/24/21 10:00 05/05/21 09:21 Ascorbic Acid 500 Mg Tab PO 500 mg QDAY TUTU Administration Cholecalciferol 1,000 unit 04/17/21 10:00 05/05/21 09:21 Cholecalciferol (Vit D3) 1000 Unit (25 Mcg) Tab PO 1,000 unit QDAY TUTU Administration Dextrose 50 ml 04/18/21 07:30 04/28/21 09:59 Dextrose 50% In Water (25gm) 50 Ml Syringe IV 50 ml Q30MIN PRN Administration Hypoglycemia Protocol Docusate Sodium 100 mg 04/30/21 10:00 05/05/21 09:21 Docusate Sodium 100 Mg Cap PO 100 mg BID TUTU Administration Famotidine 20 mg 05/03/21 11:00 05/05/21 09:20 Famotidine 20 Mg/2 Ml Inj IV 20 mg BID TUTU Administration Heparin Sodium (Porcine) 5,000 unit 04/16/21 22:00 05/05/21 09:20 Heparin 5,000 Unit/1 Ml Vial SUB-Q 5,000 unit Q12HR TUTU Administration Dexmedetomidine HCl 400 mcg/ 104 mls @ 3.604 mls/hr 04/26/21 04:00 05/02/21 10:18 Sodium Chloride IV 0 mcg/kg/hr TITRATE TUTU 0 mls/hr Titration Protocol 0.2 MCG/KG/HR Potassium Chloride 20 meq in 100 mls @ 100 mls/hr 04/30/21 09:25 Kcl 20meq/100ml IV Q1H PRN Potassium 3-3.5 mEq/L Potassium Chloride 20 meq in 100 mls @ 100 mls/hr 04/30/21 09:25 Kcl 20meq/100ml IV Q1H PRN Potassium 2.6-2.9 mEq/L Magnesium Sulfate 1 gm/ Sodium 52 mls @ 26 mls/hr 04/30/21 09:25 Chloride IV Q2H PRN Magnesium level 1.8-2 mg/dL Magnesium Sulfate 2 gm in 50 mls @ 25 mls/hr 04/30/21 09:25 Magnesium Sulfate 2gm/50ml IV Q2H PRN Magnesium level 1.5-1.7 mg/dL Magnesium Sulfate 4 gm in 100 mls @ 25 mls/hr 04/30/21 09:25 Magnesium Sulfate 4gm/100ml IV Q4H PRN Magnesium level < 1.4 mg/dL Sodium Phosphate 15 mmol/ 155 mls @ 40 mls/hr 04/30/21 09:25 Sodium Chloride IV Q4H PRN Phosphorous level 1.2-2.5 mg/d Sodium Phosphate 30 mmol/ 260 mls @ 40 mls/hr 04/30/21 09:25 Sodium Chloride IV Q6H PRN Phosphorous level < 1.2 mg/dL Amino Acids/Electrolytes/Dextrose 1,440 mls @ 60 mls/hr 05/04/21 20:00 05/04/21 20:33 Tpn Adult IV 05/05/21 19:59 60 mls/hr DAILY@2000 TUTU Administration Protocol Insulin Glargine 25 units 05/04/21 11:05 05/05/21 09:20 Insulin Glargine 100 Units/Ml SUB-Q 25 units DAILY TUTU Administration Insulin Human Lispro 0 unit 05/01/21 12:00 05/05/21 05:57 Insulin Lispro 100 Unit/Ml SUB-Q 6 unit Q6HR TUTU Administration Protocol Lorazepam 1 mg 05/02/21 08:56 05/04/21 22:13 Lorazepam 2 Mg/Ml Vial IV 1 mg Q4H PRN Administration Anxiety Methylprednisolone Sodium Succinate 40 mg 04/28/21 14:00 05/05/21 05:56 Methylprednisolone Sod Succinate 40 Mg/1 Ml Inj IV 40 mg Q8HR TUTU Administration Ofloxacin 2 drops 05/02/21 12:00 05/05/21 05:56 Ofloxacin 0.3% Ophth Soln 5 Ml OU 05/07/21 11:59 2 drops Q6HR TUTU Administration Ondansetron HCl 4 mg 04/16/21 14:00 08/20/21 13:19 Ondansetron 4 Mg/2 Ml Inj IV 4 mg Q8H PRN Administration Nausea And Vomiting Polyethylene Glycol 17 gm 05/02/21 16:00 05/05/21 09:22 Polyethylene Glycol 3350 17 Gm Powder PO Not Given QDAY TUTU Senna 17.2 mg 05/02/21 22:00 05/04/21 22:13 Sennosides 8.6 Mg Tab PO 17.2 mg QHS TUTU Administration Sodium Chloride 10 ml 04/16/21 22:00 05/05/21 09:22 Sodium Chloride 0.9% 10 Ml Flush Syringe IV 10 ml BID TUTU Administration Sodium Chloride 10 ml 04/16/21 13:39 Sodium Chloride 0.9% 10 Ml Flush Syringe IV PRN PRN LINE FLUSH Zinc Sulfate 220 mg 04/16/21 22:00 05/05/21 09:21 Zinc Sulfate 220 Mg Cap PO 220 mg BID TUTU Administration Nutrition/Malnutrition Assess - Dietary Evaluation Nutrition/Malnutrition Findings: Nutrition Notes Start: 04/23/21 07:41 Freq: Status: Active Protocol: Document 05/04/21 10:25 CW (Rec: 05/04/21 11:21 CW [email or web address]) Nutrition Notes Initial or Follow up Reassessment Current Diagnosis Respiratory Failure Other Pertinent Diagnosis oral thrush, COVID-19 pneu Current Diet cl liq diet Labs/Tests Na 134 BUN 20 BG 267 Pertinent Medications Colace Miralax Lantus Solumedrol Humalog Senokot Zofran Height 4 ft 11.84 in Weight 67.9 kg [place] Body Weight (kg) 45.09 BMI 29.4 Weight change and time frame weight change noted Weight Status Overweight Subjective/Other Information TPN day 5. Pt now on cl liq. Pt has PIC line placement. Will cotninue to CPN. TPN to continue until at least 75% of EER is met via PO intake Percent of energy/protein needs met: 76%/85% Burn Absent Trauma Absent Current % PO Poor (25-49%) Minimum of two criteria Yes Energy Intake (severe) < or equal to 50% Estimated Energy Requirement > or equal to 5 days Interpretation of Weight Loss (severe) >5% in 1 month #2 Nutrition Diagnosis Malnutrition Diagnosis Progress(for reassessment Continues documentation) #1 Nutrition Diagnosis Inadequate oral intake Diagnosis Progress(for reassessment Continues documentation) Is patient on ventilator? No Is Patient Ambulatory and/or Out of Bed No REE-([facility]-confined to bed) 1471.488 Kcal/Kg value to use for calculation 25 Approximate Energy Requirements Using 1698 kcal/Kg Calculation Used for Recommendations [facility] Additional Notes Pro needs 1.2-2g/k-137g/ day Fluid needs 1ml/kcal Nutrition Intervention Change Diet Order: Advance as tolerated Change to CPN Nutrition Support: TPN via PICC at 60 ml/h Osm: 1048 mOsm; 6.9% D, 5.7% AA; MVI, 58 mEq Na, 30 mEq K, 7 mEq Mg, 10 mmol P, Cl/Acetate 75/25 Kcal 668 Protein (gm) 82 Carbohydrates (gm) 100 Fat (gm) 0 Fluid (mL) 1,440 Fiber (gm) 0 Add Supplement/Snack (indicate name/kcal Ensure Clear TID /protein ) Provides kCal: 540 Provides Protein (gm) 24 Goal #1 PO tolerance Goal #2 Meet at least 75% gisella and pro needs via PO and TPN Goal #3 diet advancement as medically feasible Anticipated Discharge Needs: Unable to determine at this time Follow-Up By: 05/05/21 Additional Comments F/U BMP, Mg, phos in AM - Malnutrition Assessment Minimum of two criteria: No physical signs of malnutrition - Attestation Statement I have reviewed and agreed w/ Malnutrition eval & tx plan: Yes
--- NOTE | 2021-05-05 17:06 | Progress Note ---
Assessment and Plan Imp: 1. Covid-19 2. Viral pneumonia 3. Acute respiratory failure, hypoxia Rec: 1. S/p Remdesivir, Actemra 2. Cont. Solumedrol IV 3. SubQ heparin; D-dimer improving 4. Proning 5. Wean HFNC to keep sats 88% or > Subjective Date of service: 05/05/21 Principal diagnosis: Covid-19 Interval history: No events. Awake, alert. On 40LPM and 80% FiO2 HFNC. + SOB and cough. Active Medications Acetaminophen (Acetaminophen 325 Mg Tab) 650 mg PO Q4H PRN PRN Reason: Pain MILD(1-3)/Fever >100.5/[place] Last Admin: 04/27/21 18:58 Dose: 650 mg Documented by: Albuterol (Albuterol 2.5 Mg/3 Ml Nebu) 2.5 mg IH Q4HRT PRN PRN Reason: Shortness Of Breath Last Admin: 04/21/21 20:39 Dose: 2.5 mg Documented by: Artificial Tears (Hypromellose 0.5% Ophth Soln 15 Ml) 2 drops OU Q4H PRN PRN Reason: Dry Eye(s) Last Admin: 05/01/21 11:29 Dose: 2 drops Documented by: Ascorbic Acid (Ascorbic Acid 500 Mg Tab) 500 mg PO QDAY [facility] Last Admin: 05/05/21 09:21 Dose: 500 mg Documented by: Cholecalciferol (Cholecalciferol (Vit D3) 1000 Unit (25 Mcg) Tab) 1,000 unit PO QDAY [facility] Last Admin: 05/05/21 09:21 Dose: 1,000 unit Documented by: Dextrose (Dextrose 50% In Water (25gm) 50 Ml Syringe) 50 ml IV Q30MIN PRN; Protocol PRN Reason: Hypoglycemia Last Admin: 04/28/21 09:59 Dose: 50 ml Documented by: Docusate Sodium (Docusate Sodium 100 Mg Cap) 100 mg PO BID [facility] Last Admin: 05/05/21 09:21 Dose: 100 mg Documented by: Famotidine (Famotidine 20 Mg/2 Ml Inj) 20 mg IV BID [facility] Last Admin: 05/05/21 09:20 Dose: 20 mg Documented by: Heparin Sodium (Porcine) (Heparin 5,000 Unit/1 Ml Vial) 5,000 unit SUB-Q Q12HR [facility] Last Admin: 05/05/21 09:20 Dose: 5,000 unit Documented by: Dexmedetomidine HCl 400 mcg/ (Sodium Chloride) 104 mls @ 3.604 mls/hr IV TITRATE [facility]; Protocol Last Titration: 05/02/21 10:18 Dose: 0 mcg/kg/hr, 0 mls/hr Documented by: Potassium Chloride (Kcl 20meq/100ml) 20 meq in 100 mls @ 100 mls/hr IV Q1H PRN PRN Reason: Potassium 3-3.5 mEq/L Potassium Chloride (Kcl 20meq/100ml) 20 meq in 100 mls @ 100 mls/hr IV Q1H PRN PRN Reason: Potassium 2.6-2.9 mEq/L Magnesium Sulfate 1 gm/ Sodium (Chloride) 52 mls @ 26 mls/hr IV Q2H PRN PRN Reason: Magnesium level 1.8-2 mg/dL Magnesium Sulfate (Magnesium Sulfate 2gm/50ml) 2 gm in 50 mls @ 25 mls/hr IV Q2H PRN PRN Reason: Magnesium level 1.5-1.7 mg/dL Magnesium Sulfate (Magnesium Sulfate 4gm/100ml) 4 gm in 100 mls @ 25 mls/hr IV Q4H PRN PRN Reason: Magnesium level < 1.4 mg/dL Sodium Phosphate 15 mmol/ (Sodium Chloride) 155 mls @ 40 mls/hr IV Q4H PRN PRN Reason: Phosphorous level 1.2-2.5 mg/d Sodium Phosphate 30 mmol/ (Sodium Chloride) 260 mls @ 40 mls/hr IV Q6H PRN PRN Reason: Phosphorous level < 1.2 mg/dL Amino Acids/Electrolytes/Dextrose (Tpn Adult) 1,440 mls @ 60 mls/hr IV DAILY@1999 [facility]; Protocol Stop: 05/05/21 19:59 Last Admin: 05/04/21 20:33 Dose: 60 mls/hr Documented by: Amino Acids/Electrolytes/Dextrose (Tpn Adult) 1,440 mls @ 60 mls/hr IV DAILY@1999 [facility]; Protocol Stop: 05/06/21 19:59 Insulin Glargine (Insulin Glargine 100 Units/Ml) 25 units SUB-Q DAILY [facility] Last Admin: 05/05/21 09:20 Dose: 25 units Documented by: Insulin Human Lispro (Insulin Lispro 100 Unit/Ml) 0 unit SUB-Q Q6HR [facility]; Protocol Last Admin: 05/05/21 13:00 Dose: 6 unit Documented by: Lorazepam (Lorazepam 2 Mg/Ml Vial) 1 mg IV Q4H PRN PRN Reason: Anxiety Last Admin: 05/04/21 22:13 Dose: 1 mg Documented by: Methylprednisolone Sodium Succinate (Methylprednisolone Sod Succinate 40 Mg/1 Ml Inj) 40 mg IV Q8HR [facility] Last Admin: 05/05/21 13:00 Dose: 40 mg Documented by: Ofloxacin (Ofloxacin 0.3% Ophth Soln 5 Ml) 2 drops OU Q6HR [facility] Stop: 05/07/21 11:59 Last Admin: 05/05/21 13:18 Dose: 2 drops Documented by: Ondansetron HCl (Ondansetron 4 Mg/2 Ml Inj) 4 mg IV Q8H PRN PRN Reason: Nausea And Vomiting Last Admin: 05/03/21 13:19 Dose: 4 mg Documented by: Polyethylene Glycol (Polyethylene Glycol 3350 17 Gm Powder) 17 gm PO QDAY [facility] Last Admin: 05/05/21 09:22 Dose: Not Given Documented by: Senna (Sennosides 8.6 Mg Tab) 17.2 mg PO QHS [facility] Last Admin: 05/04/21 22:13 Dose: 17.2 mg Documented by: Sodium Chloride (Sodium Chloride 0.9% 10 Ml Flush Syringe) 10 ml IV BID [facility] Last Admin: 05/05/21 09:22 Dose: 10 ml Documented by: Sodium Chloride (Sodium Chloride 0.9% 10 Ml Flush Syringe) 10 ml IV PRN PRN PRN Reason: LINE FLUSH Zinc Sulfate (Zinc Sulfate 220 Mg Cap) 220 mg PO BID [facility] Last Admin: 05/05/21 09:21 Dose: 220 mg Documented by: Objective - Exam Narrative Exam: Deferred to reduce Covid-19 transmission and preserve PPE Vital Signs - 12hr 05/05/21 05/05/21 05/05/21 06:00 07:17 08:00 Temperature 98.0 F Pulse Rate 85 80 Respiratory 35 H 24 Rate Blood Pressure 105/45 93/44 O2 Sat by Pulse 98 98 Oximetry 05/05/21 05/05/21 05/05/21 10:00 12:00 12:33 Temperature 98.1 F Pulse Rate 85 79 Respiratory 35 H 33 H Rate Blood Pressure 103/55 120/69 O2 Sat by Pulse 96 96 Oximetry 05/05/21 05/05/21 14:00 16:56 Temperature 98.4 F Pulse Rate 89 Respiratory 26 H Rate Blood Pressure 120/69 O2 Sat by Pulse 92 Oximetry CBC and BMP: 05/02/21 04:55 05/05/21 05:00 ABG, PT/INR, D-dimer: ABG ABG pH 7.229 (7.320-7.450) L 05/03/21 04:49 POC ABG pCO2 45.4 mmHg (32.0-48.0) 05/03/21 04:49 ABG pCO2 42.2 mm Hg 04/29/21 14:23 POC ABG pO2 65.3 mmHg (83-108) L 05/03/21 04:49 ABG pO2 52.6 mm Hg (80.0-90.0) L 04/29/21 14:23 POC ABG HCO3 18.5 05/03/21 04:49 ABG O2 Saturation 88.4 (0-100) 05/03/21 04:49 PT/INR, D-dimer D-Dimer 1401.08 ng/mlDDU (0-234) H 05/02/21 04:55 Abnormal lab findings: Abnormal Labs 04/16/21 04/16/21 04/16/21 11:42 11:42 11:42 WBC MCHC RDW 16.1 H Lymph % (Auto) 7.8 L Lymph # (Auto) 0.8 L Seg Neutrophils % 87.7 H Seg Neutrophils # 8.5 H D-Dimer 338.70 H ABG pH POC ABG pO2 ABG pO2 ABG O2 Saturation ABG Oxyhemoglobin ABG Sodium ABG Chloride ABG Glucose Oxyhemoglobin Carboxyhemoglobin Sodium Potassium Chloride Carbon Dioxide BUN Creatinine Glucose 194 H POC Glucose Hemoglobin A1c Ferritin AST ALT Alkaline Phosphatase Lactate Dehydrogenase C-Reactive Protein Total Protein 8.4 H Albumin 3.8 L Arterial Blood Glucose Coronavirus (PCR) 04/16/21 04/16/21 04/17/21 11:42 11:42 03:50 WBC MCHC RDW 16.0 H Lymph % (Auto) 7.7 L Lymph # (Auto) 0.6 L Seg Neutrophils % 89.8 H Seg Neutrophils # D-Dimer ABG pH POC ABG pO2 ABG pO2 ABG O2 Saturation ABG Oxyhemoglobin ABG Sodium ABG Chloride ABG Glucose Oxyhemoglobin Carboxyhemoglobin Sodium Potassium Chloride Carbon Dioxide BUN Creatinine Glucose 195 H POC Glucose Hemoglobin A1c Ferritin 254.3 H AST ALT Alkaline Phosphatase Lactate Dehydrogenase 359 H C-Reactive Protein 15.20 H Total Protein Albumin Arterial Blood Glucose Coronavirus (PCR) 04/17/21 04/17/21 04/17/21 03:50 08:26 08:26 WBC MCHC RDW Lymph % (Auto) Lymph # (Auto) Seg Neutrophils % Seg Neutrophils # D-Dimer 262.48 H ABG pH POC ABG pO2 ABG pO2 ABG O2 Saturation ABG Oxyhemoglobin ABG Sodium ABG Chloride ABG Glucose Oxyhemoglobin Carboxyhemoglobin Sodium Potassium Chloride Carbon Dioxide BUN 20 H Creatinine 0.5 L Glucose 249 H 225 H POC Glucose Hemoglobin A1c Ferritin AST ALT Alkaline Phosphatase Lactate Dehydrogenase 338 H C-Reactive Protein 17.20 H Total Protein Albumin 3.2 L Arterial Blood Glucose Coronavirus (PCR) 04/17/21 04/17/21 04/17/21 08:26 15:04 Unknown WBC MCHC RDW Lymph % (Auto) Lymph # (Auto) Seg Neutrophils % Seg Neutrophils # D-Dimer ABG pH POC ABG pO2 ABG pO2 ABG O2 Saturation ABG Oxyhemoglobin ABG Sodium ABG Chloride ABG Glucose Oxyhemoglobin Carboxyhemoglobin Sodium Potassium Chloride Carbon Dioxide BUN 20 H Creatinine 0.5 L Glucose 246 H POC Glucose Hemoglobin A1c Ferritin 392.0 H AST ALT Alkaline Phosphatase Lactate Dehydrogenase C-Reactive Protein Total Protein 8.3 H Albumin 3.1 L Arterial Blood Glucose Coronavirus (PCR) Positive A 04/18/21 04/18/21 04/18/21 05:06 05:06 07:36 WBC 11.6 H MCHC RDW 16.1 H Lymph % (Auto) Lymph # (Auto) Seg Neutrophils % Seg Neutrophils # D-Dimer ABG pH POC ABG pO2 ABG pO2 ABG O2 Saturation ABG Oxyhemoglobin ABG Sodium ABG Chloride ABG Glucose Oxyhemoglobin Carboxyhemoglobin Sodium Potassium 5.2 H Chloride Carbon Dioxide BUN 22 H Creatinine 0.5 L Glucose 315 H POC Glucose Hemoglobin A1c 8.5 H Ferritin AST ALT Alkaline Phosphatase Lactate Dehydrogenase C-Reactive Protein Total Protein Albumin 3.3 L Arterial Blood Glucose Coronavirus (PCR) 04/18/21 04/18/21 04/18/21 11:59 16:43 23:24 WBC MCHC RDW Lymph % (Auto) Lymph # (Auto) Seg Neutrophils % Seg Neutrophils # D-Dimer ABG pH POC ABG pO2 ABG pO2 ABG O2 Saturation ABG Oxyhemoglobin ABG Sodium ABG Chloride ABG Glucose Oxyhemoglobin Carboxyhemoglobin Sodium Potassium Chloride Carbon Dioxide BUN Creatinine Glucose POC Glucose 284 H 273 H 290 H Hemoglobin A1c Ferritin AST ALT Alkaline Phosphatase Lactate Dehydrogenase C-Reactive Protein Total Protein Albumin Arterial Blood Glucose Coronavirus (PCR) 04/19/21 04/19/21 04/19/21 04:19 04:19 08:10 WBC MCHC RDW 15.7 H Lymph % (Auto) Lymph # (Auto) Seg Neutrophils % Seg Neutrophils # D-Dimer ABG pH POC ABG pO2 ABG pO2 ABG O2 Saturation ABG Oxyhemoglobin ABG Sodium ABG Chloride ABG Glucose Oxyhemoglobin Carboxyhemoglobin Sodium Potassium Chloride Carbon Dioxide BUN 27 H Creatinine 0.4 L Glucose 184 H POC Glucose 194 H Hemoglobin A1c Ferritin AST ALT Alkaline Phosphatase Lactate Dehydrogenase C-Reactive Protein Total Protein Albumin 3.1 L Arterial Blood Glucose Coronavirus (PCR) 04/19/21 04/19/21 04/19/21 11:38 16:25 22:04 WBC MCHC RDW Lymph % (Auto) Lymph # (Auto) Seg Neutrophils % Seg Neutrophils # D-Dimer ABG pH POC ABG pO2 ABG pO2 ABG O2 Saturation ABG Oxyhemoglobin ABG Sodium ABG Chloride ABG Glucose Oxyhemoglobin Carboxyhemoglobin Sodium Potassium Chloride Carbon Dioxide BUN Creatinine Glucose POC Glucose 224 H 297 H 251 H Hemoglobin A1c Ferritin AST ALT Alkaline Phosphatase Lactate Dehydrogenase C-Reactive Protein Total Protein Albumin Arterial Blood Glucose Coronavirus (PCR) 04/20/21 04/20/21 04/20/21 05:28 08:43 16:21 WBC MCHC RDW Lymph % (Auto) Lymph # (Auto) Seg Neutrophils % Seg Neutrophils # D-Dimer ABG pH POC ABG pO2 ABG pO2 ABG O2 Saturation ABG Oxyhemoglobin ABG Sodium ABG Chloride ABG Glucose Oxyhemoglobin Carboxyhemoglobin Sodium Potassium Chloride Carbon Dioxide BUN 27 H Creatinine Glucose 192 H POC Glucose 173 H 253 H Hemoglobin A1c Ferritin AST ALT Alkaline Phosphatase Lactate Dehydrogenase C-Reactive Protein Total Protein Albumin 3.0 L Arterial Blood Glucose Coronavirus (PCR) 04/21/21 04/21/21 04/21/21 07:58 12:05 16:08 WBC MCHC RDW Lymph % (Auto) Lymph # (Auto) Seg Neutrophils % Seg Neutrophils # D-Dimer ABG pH POC ABG pO2 ABG pO2 ABG O2 Saturation ABG Oxyhemoglobin ABG Sodium ABG Chloride ABG Glucose Oxyhemoglobin Carboxyhemoglobin Sodium Potassium Chloride Carbon Dioxide BUN Creatinine Glucose POC Glucose 140 H 252 H 214 H Hemoglobin A1c Ferritin AST ALT Alkaline Phosphatase Lactate Dehydrogenase C-Reactive Protein Total Protein Albumin Arterial Blood Glucose Coronavirus (PCR) 04/21/21 04/22/21 04/22/21 21:42 08:37 12:01 WBC MCHC RDW Lymph % (Auto) Lymph # (Auto) Seg Neutrophils % Seg Neutrophils # D-Dimer ABG pH 7.457 H POC ABG pO2 49.4 L ABG pO2 ABG O2 Saturation ABG Oxyhemoglobin 85.6 L ABG Sodium ABG Chloride ABG Glucose 121 H Oxyhemoglobin Carboxyhemoglobin 0.3 L Sodium Potassium Chloride Carbon Dioxide BUN Creatinine Glucose POC Glucose 162 H 227 H Hemoglobin A1c Ferritin AST ALT Alkaline Phosphatase Lactate Dehydrogenase C-Reactive Protein Total Protein Albumin Arterial Blood Glucose 121 H Coronavirus (PCR) 04/22/21 04/22/21 04/23/21 16:26 22:23 04:52 WBC MCHC RDW 15.7 H Lymph % (Auto) Lymph # (Auto) Seg Neutrophils % Seg Neutrophils # D-Dimer ABG pH POC ABG pO2 ABG pO2 ABG O2 Saturation ABG Oxyhemoglobin ABG Sodium ABG Chloride ABG Glucose Oxyhemoglobin Carboxyhemoglobin Sodium Potassium Chloride Carbon Dioxide BUN Creatinine Glucose POC Glucose 200 H 136 H Hemoglobin A1c Ferritin AST ALT Alkaline Phosphatase Lactate Dehydrogenase C-Reactive Protein Total Protein Albumin Arterial Blood Glucose Coronavirus (PCR) 04/23/21 04/23/21 04/23/21 04:52 12:06 17:41 WBC MCHC RDW Lymph % (Auto) Lymph # (Auto) Seg Neutrophils % Seg Neutrophils # D-Dimer ABG pH POC ABG pO2 ABG pO2 ABG O2 Saturation ABG Oxyhemoglobin ABG Sodium ABG Chloride ABG Glucose Oxyhemoglobin Carboxyhemoglobin Sodium 136 L Potassium Chloride 97.7 L Carbon Dioxide BUN 23 H Creatinine Glucose 101 H POC Glucose 202 H 169 H Hemoglobin A1c Ferritin AST 46 H ALT Alkaline Phosphatase Lactate Dehydrogenase C-Reactive Protein Total Protein Albumin 3.3 L Arterial Blood Glucose Coronavirus (PCR) 04/23/21 04/24/21 04/24/21 23:08 05:17 08:38 WBC MCHC RDW Lymph % (Auto) Lymph # (Auto) Seg Neutrophils % Seg Neutrophils # D-Dimer ABG pH POC ABG pO2 ABG pO2 ABG O2 Saturation ABG Oxyhemoglobin ABG Sodium ABG Chloride ABG Glucose Oxyhemoglobin Carboxyhemoglobin Sodium Potassium Chloride Carbon Dioxide BUN Creatinine Glucose POC Glucose 111 H 108 H 126 H Hemoglobin A1c Ferritin AST ALT Alkaline Phosphatase Lactate Dehydrogenase C-Reactive Protein Total Protein Albumin Arterial Blood Glucose Coronavirus (PCR) 04/24/21 04/24/21 04/24/21 11:54 17:57 21:23 WBC MCHC RDW Lymph % (Auto) Lymph # (Auto) Seg Neutrophils % Seg Neutrophils # D-Dimer ABG pH POC ABG pO2 ABG pO2 ABG O2 Saturation ABG Oxyhemoglobin ABG Sodium ABG Chloride ABG Glucose Oxyhemoglobin Carboxyhemoglobin Sodium Potassium Chloride Carbon Dioxide BUN Creatinine Glucose POC Glucose 147 H 177 H 138 H Hemoglobin A1c Ferritin AST ALT Alkaline Phosphatase Lactate Dehydrogenase C-Reactive Protein Total Protein Albumin Arterial Blood Glucose Coronavirus (PCR) 04/25/21 04/25/21 04/25/21 07:06 11:23 15:43 WBC MCHC RDW Lymph % (Auto) Lymph # (Auto) Seg Neutrophils % Seg Neutrophils # D-Dimer ABG pH POC ABG pO2 ABG pO2 ABG O2 Saturation ABG Oxyhemoglobin ABG Sodium ABG Chloride ABG Glucose Oxyhemoglobin Carboxyhemoglobin Sodium Potassium Chloride Carbon Dioxide BUN Creatinine Glucose POC Glucose 147 H 169 H 227 H Hemoglobin A1c Ferritin AST ALT Alkaline Phosphatase Lactate Dehydrogenase C-Reactive Protein Total Protein Albumin Arterial Blood Glucose Coronavirus (PCR) 04/25/21 04/26/21 04/26/21 21:22 02:45 05:15 WBC MCHC RDW Lymph % (Auto) Lymph # (Auto) Seg Neutrophils % Seg Neutrophils # D-Dimer ABG pH POC ABG pO2 70.7 L ABG pO2 ABG O2 Saturation ABG Oxyhemoglobin 93.0 L ABG Sodium 132.7 L ABG Chloride ABG Glucose 115 H Oxyhemoglobin Carboxyhemoglobin Sodium Potassium Chloride 95.8 L Carbon Dioxide 32 H BUN 20 H Creatinine Glucose 102 H POC Glucose 196 H Hemoglobin A1c Ferritin AST ALT Alkaline Phosphatase Lactate Dehydrogenase C-Reactive Protein Total Protein Albumin Arterial Blood Glucose 115 H Coronavirus (PCR) 04/26/21 04/26/21 04/26/21 11:49 16:09 21:07 WBC MCHC RDW Lymph % (Auto) Lymph # (Auto) Seg Neutrophils % Seg Neutrophils # D-Dimer ABG pH POC ABG pO2 ABG pO2 ABG O2 Saturation ABG Oxyhemoglobin ABG Sodium ABG Chloride ABG Glucose Oxyhemoglobin Carboxyhemoglobin Sodium Potassium Chloride Carbon Dioxide BUN Creatinine Glucose POC Glucose 114 H 188 H 136 H Hemoglobin A1c Ferritin AST ALT Alkaline Phosphatase Lactate Dehydrogenase C-Reactive Protein Total Protein Albumin Arterial Blood Glucose Coronavirus (PCR) 04/27/21 04/27/21 04/28/21 17:34 22:12 08:26 WBC MCHC RDW Lymph % (Auto) Lymph # (Auto) Seg Neutrophils % Seg Neutrophils # D-Dimer ABG pH POC ABG pO2 ABG pO2 ABG O2 Saturation ABG Oxyhemoglobin ABG Sodium ABG Chloride ABG Glucose Oxyhemoglobin Carboxyhemoglobin Sodium Potassium Chloride Carbon Dioxide BUN Creatinine Glucose POC Glucose 128 H 159 H 69 L Hemoglobin A1c Ferritin AST ALT Alkaline Phosphatase Lactate Dehydrogenase C-Reactive Protein Total Protein Albumin Arterial Blood Glucose Coronavirus (PCR) 04/28/21 04/28/21 04/29/21 12:22 21:11 06:05 WBC MCHC RDW Lymph % (Auto) Lymph # (Auto) Seg Neutrophils % Seg Neutrophils # D-Dimer ABG pH POC ABG pO2 ABG pO2 ABG O2 Saturation ABG Oxyhemoglobin ABG Sodium ABG Chloride ABG Glucose Oxyhemoglobin Carboxyhemoglobin Sodium 132 L Potassium Chloride 94.4 L Carbon Dioxide BUN Creatinine 0.2 L D Glucose 140 H POC Glucose 141 H 171 H Hemoglobin A1c Ferritin AST ALT Alkaline Phosphatase Lactate Dehydrogenase C-Reactive Protein Total Protein Albumin Arterial Blood Glucose Coronavirus (PCR) 04/29/21 04/29/21 04/29/21 06:05 07:24 11:36 WBC MCHC 35 H RDW 15.9 H Lymph % (Auto) Lymph # (Auto) Seg Neutrophils % Seg Neutrophils # D-Dimer ABG pH POC ABG pO2 ABG pO2 ABG O2 Saturation ABG Oxyhemoglobin ABG Sodium ABG Chloride ABG Glucose Oxyhemoglobin Carboxyhemoglobin Sodium Potassium Chloride Carbon Dioxide BUN Creatinine Glucose POC Glucose 141 H 220 H Hemoglobin A1c Ferritin AST ALT Alkaline Phosphatase Lactate Dehydrogenase C-Reactive Protein Total Protein Albumin Arterial Blood Glucose Coronavirus (PCR) 04/29/21 04/29/21 04/29/21 14:23 15:30 17:06 WBC MCHC RDW Lymph % (Auto) Lymph # (Auto) Seg Neutrophils % Seg Neutrophils # D-Dimer ABG pH POC ABG pO2 ABG pO2 52.6 L ABG O2 Saturation 86.4 L ABG Oxyhemoglobin ABG Sodium ABG Chloride ABG Glucose Oxyhemoglobin 84.6 L Carboxyhemoglobin Sodium Potassium Chloride Carbon Dioxide BUN Creatinine Glucose POC Glucose 173 H 158 H Hemoglobin A1c Ferritin AST ALT Alkaline Phosphatase Lactate Dehydrogenase C-Reactive Protein Total Protein Albumin Arterial Blood Glucose Coronavirus (PCR) 04/29/21 04/30/21 04/30/21 21:27 07:16 08:00 WBC MCHC RDW 16.1 H Lymph % (Auto) Lymph # (Auto) Seg Neutrophils % Seg Neutrophils # D-Dimer ABG pH POC ABG pO2 ABG pO2 ABG O2 Saturation ABG Oxyhemoglobin ABG Sodium ABG Chloride ABG Glucose Oxyhemoglobin Carboxyhemoglobin Sodium Potassium Chloride Carbon Dioxide BUN Creatinine Glucose POC Glucose 244 H 175 H Hemoglobin A1c Ferritin AST ALT Alkaline Phosphatase Lactate Dehydrogenase C-Reactive Protein Total Protein Albumin Arterial Blood Glucose Coronavirus (PCR) 04/30/21 04/30/21 04/30/21 08:00 08:00 11:03 WBC MCHC RDW Lymph % (Auto) Lymph # (Auto) Seg Neutrophils % Seg Neutrophils # D-Dimer 1796.87 H ABG pH POC ABG pO2 ABG pO2 ABG O2 Saturation ABG Oxyhemoglobin ABG Sodium ABG Chloride ABG Glucose Oxyhemoglobin Carboxyhemoglobin Sodium 135 L Potassium Chloride 96.3 L Carbon Dioxide BUN Creatinine 0.2 L Glucose 153 H POC Glucose 183 H Hemoglobin A1c Ferritin AST 41 H ALT 76 H Alkaline Phosphatase 160 H Lactate Dehydrogenase 522 H C-Reactive Protein Total Protein 6.1 L Albumin 3.1 L Arterial Blood Glucose Coronavirus (PCR) 04/30/21 04/30/21 05/01/21 17:04 22:17 05:39 WBC MCHC RDW Lymph % (Auto) Lymph # (Auto) Seg Neutrophils % Seg Neutrophils # D-Dimer ABG pH POC ABG pO2 ABG pO2 ABG O2 Saturation ABG Oxyhemoglobin ABG Sodium ABG Chloride ABG Glucose Oxyhemoglobin Carboxyhemoglobin Sodium 133 L Potassium Chloride 92.1 L Carbon Dioxide BUN 24 H Creatinine 0.4 L D Glucose 269 H POC Glucose 167 H 208 H Hemoglobin A1c Ferritin AST ALT 66 H Alkaline Phosphatase 142 H Lactate Dehydrogenase C-Reactive Protein Total Protein Albumin 3.2 L Arterial Blood Glucose Coronavirus (PCR) 05/01/21 05/01/21 05/01/21 05:39 05:39 07:45 WBC MCHC RDW 16.0 H Lymph % (Auto) Lymph # (Auto) Seg Neutrophils % Seg Neutrophils # D-Dimer 3984.95 H ABG pH POC ABG pO2 ABG pO2 ABG O2 Saturation ABG Oxyhemoglobin ABG Sodium ABG Chloride ABG Glucose Oxyhemoglobin Carboxyhemoglobin Sodium Potassium Chloride Carbon Dioxide BUN Creatinine Glucose POC Glucose 229 H Hemoglobin A1c Ferritin AST ALT Alkaline Phosphatase Lactate Dehydrogenase C-Reactive Protein Total Protein Albumin Arterial Blood Glucose Coronavirus (PCR) 05/01/21 05/01/21 05/01/21 12:10 15:46 21:06 WBC MCHC RDW Lymph % (Auto) Lymph # (Auto) Seg Neutrophils % Seg Neutrophils # D-Dimer ABG pH POC ABG pO2 ABG pO2 ABG O2 Saturation ABG Oxyhemoglobin ABG Sodium ABG Chloride ABG Glucose Oxyhemoglobin Carboxyhemoglobin Sodium Potassium Chloride Carbon Dioxide BUN Creatinine Glucose POC Glucose 296 H 279 H 232 H Hemoglobin A1c Ferritin AST ALT Alkaline Phosphatase Lactate Dehydrogenase C-Reactive Protein Total Protein Albumin Arterial Blood Glucose Coronavirus (PCR) 05/02/21 05/02/21 05/02/21 04:55 04:55 04:55 WBC MCHC RDW 16.1 H Lymph % (Auto) Lymph # (Auto) Seg Neutrophils % Seg Neutrophils # D-Dimer 1401.08 H ABG pH POC ABG pO2 ABG pO2 ABG O2 Saturation ABG Oxyhemoglobin ABG Sodium ABG Chloride ABG Glucose Oxyhemoglobin Carboxyhemoglobin Sodium 131 L Potassium Chloride 95.5 L Carbon Dioxide BUN 20 H Creatinine 0.3 L Glucose 288 H POC Glucose Hemoglobin A1c Ferritin AST ALT Alkaline Phosphatase Lactate Dehydrogenase C-Reactive Protein Total Protein 6.0 L Albumin 3.1 L Arterial Blood Glucose Coronavirus (PCR) 05/02/21 05/02/21 05/02/21 07:53 11:45 15:25 WBC MCHC RDW Lymph % (Auto) Lymph # (Auto) Seg Neutrophils % Seg Neutrophils # D-Dimer ABG pH POC ABG pO2 ABG pO2 ABG O2 Saturation ABG Oxyhemoglobin ABG Sodium ABG Chloride ABG Glucose Oxyhemoglobin Carboxyhemoglobin Sodium Potassium Chloride Carbon Dioxide BUN Creatinine Glucose POC Glucose 180 H 228 H 275 H Hemoglobin A1c Ferritin AST ALT Alkaline Phosphatase Lactate Dehydrogenase C-Reactive Protein Total Protein Albumin Arterial Blood Glucose Coronavirus (PCR) 05/02/21 05/03/21 05/03/21 22:56 04:30 04:49 WBC MCHC RDW Lymph % (Auto) Lymph # (Auto) Seg Neutrophils % Seg Neutrophils # D-Dimer ABG pH 7.229 L POC ABG pO2 65.3 L ABG pO2 ABG O2 Saturation ABG Oxyhemoglobin 87.8 L ABG Sodium 133.0 L ABG Chloride 97.0 L ABG Glucose 403 H Oxyhemoglobin Carboxyhemoglobin Sodium 130 L Potassium Chloride 94.9 L Carbon Dioxide BUN 20 H Creatinine 0.5 L D Glucose 359 H POC Glucose 293 H Hemoglobin A1c Ferritin AST 54 H ALT 75 H Alkaline Phosphatase 138 H Lactate Dehydrogenase C-Reactive Protein Total Protein Albumin 3.6 L Arterial Blood Glucose 403 H Coronavirus (PCR) 05/03/21 05/03/21 05/03/21 05:27 11:26 17:57 WBC MCHC RDW Lymph % (Auto) Lymph # (Auto) Seg Neutrophils % Seg Neutrophils # D-Dimer ABG pH POC ABG pO2 ABG pO2 ABG O2 Saturation ABG Oxyhemoglobin ABG Sodium ABG Chloride ABG Glucose Oxyhemoglobin Carboxyhemoglobin Sodium Potassium Chloride Carbon Dioxide BUN Creatinine Glucose POC Glucose 361 H 297 H 226 H Hemoglobin A1c Ferritin AST ALT Alkaline Phosphatase Lactate Dehydrogenase C-Reactive Protein Total Protein Albumin Arterial Blood Glucose Coronavirus (PCR) 05/03/21 05/04/21 05/04/21 23:12 05:12 07:30 WBC MCHC RDW Lymph % (Auto) Lymph # (Auto) Seg Neutrophils % Seg Neutrophils # D-Dimer ABG pH POC ABG pO2 ABG pO2 ABG O2 Saturation ABG Oxyhemoglobin ABG Sodium ABG Chloride ABG Glucose Oxyhemoglobin Carboxyhemoglobin Sodium Potassium Chloride Carbon Dioxide BUN Creatinine Glucose POC Glucose 282 H 285 H 254 H Hemoglobin A1c Ferritin AST ALT Alkaline Phosphatase Lactate Dehydrogenase C-Reactive Protein Total Protein Albumin Arterial Blood Glucose Coronavirus (PCR) 05/04/21 05/04/21 05/04/21 08:58 11:45 16:07 WBC MCHC RDW Lymph % (Auto) Lymph # (Auto) Seg Neutrophils % Seg Neutrophils # D-Dimer ABG pH POC ABG pO2 ABG pO2 ABG O2 Saturation ABG Oxyhemoglobin ABG Sodium ABG Chloride ABG Glucose Oxyhemoglobin Carboxyhemoglobin Sodium 134 L Potassium Chloride Carbon Dioxide BUN 20 H Creatinine 0.3 L Glucose 267 H POC Glucose 244 H 297 H Hemoglobin A1c Ferritin AST ALT Alkaline Phosphatase Lactate Dehydrogenase C-Reactive Protein Total Protein 6.0 L Albumin 3.2 L Arterial Blood Glucose Coronavirus (PCR) 05/04/21 05/05/21 05/05/21 23:32 05:00 05:13 WBC MCHC RDW Lymph % (Auto) Lymph # (Auto) Seg Neutrophils % Seg Neutrophils # D-Dimer ABG pH POC ABG pO2 ABG pO2 ABG O2 Saturation ABG Oxyhemoglobin ABG Sodium ABG Chloride ABG Glucose Oxyhemoglobin Carboxyhemoglobin Sodium 132 L Potassium Chloride 96.4 L Carbon Dioxide BUN 22 H Creatinine 0.3 L Glucose 228 H POC Glucose 154 H 260 H Hemoglobin A1c Ferritin AST ALT 67 H Alkaline Phosphatase Lactate Dehydrogenase C-Reactive Protein Total Protein 6.1 L Albumin 3.2 L Arterial Blood Glucose Coronavirus (PCR) 05/05/21 11:32 WBC MCHC RDW Lymph % (Auto) Lymph # (Auto) Seg Neutrophils % Seg Neutrophils # D-Dimer ABG pH POC ABG pO2 ABG pO2 ABG O2 Saturation ABG Oxyhemoglobin ABG Sodium ABG Chloride ABG Glucose Oxyhemoglobin Carboxyhemoglobin Sodium Potassium Chloride Carbon Dioxide BUN Creatinine Glucose POC Glucose 279 H Hemoglobin A1c Ferritin AST ALT Alkaline Phosphatase Lactate Dehydrogenase C-Reactive Protein Total Protein Albumin Arterial Blood Glucose Coronavirus (PCR) Chest x-ray: report reviewed, image reviewed
[2021-05-05] MEDS ORDERED: TOTAL PARENTERAL NUTRITION 1,440 ML IV SCH (20:00)
[2021-05-05] MEDS: SENNOSIDES 8.6 MG TAB PO SCH (22:18)
[2021-05-06] MEDS: OFLOXACIN 0.3% OPHTH SOLN 5 ML OU SCH ×5 (05:35→23:00)
[2021-05-06] MEDS: methylPREDNISolone Sod Succinate 40 MG/1 ML INJ IV SCH ×2 (05:35→13:01)
[2021-05-06] MEDS: INSULIN LISPRO 100 UNIT/ML SUB-Q SCH ×4 (05:35→18:15)
[2021-05-06 06:08] LABS: Hematocrit 40.7 % (30.3-42.9); Hemoglobin 13.9 gm/dl (10.1-14.3); Mean Corpuscular HGB Conc 34 % (30-34); Mean Corpuscular Volume 89 fl (79-97); Platelet Count 169 K/mm3 (140-440); Red Blood Count 4.57 M/mm3 (3.65-5.03); Red Cell Distribution Width 16.8 % (13.2-15.2)
[2021-05-06 06:27] LABS: Alanine Aminotransferase 52 units/L (7-56); Albumin 3.2 g/dL (3.9-5); Blood Urea Nitrogen 21 mg/dL (7-17); Calcium 8.4 mg/dL (8.4-10.2); Hemolysis Index 8
[2021-05-06 06:28] LABS: BUN/Creatinine Ratio 70
[2021-05-06] MEDS: ASCORBIC ACID 500 MG TAB PO SCH (10:46)
[2021-05-06] MEDS: INSULIN GLARGINE 100 UNITS/ML SUB-Q SCH ×2 (10:46→22:32)
[2021-05-06] MEDS: CHOLECALCIFEROL (VIT D3) 1000 UNIT (25 mcg) TAB PO SCH (10:46)
[2021-05-06] MEDS: FAMOTIDINE 20 MG/2 ML INJ IV SCH ×2 (10:46→22:34)
[2021-05-06] MEDS: ZINC SULFATE 220 MG CAP PO SCH ×2 (10:46→22:35)
[2021-05-06] MEDS: POLYETHYLENE GLYCOL 3350 17 GM POWDER PO SCH (10:46)
[2021-05-06] MEDS: DOCUSATE SODIUM 100 MG CAP PO SCH ×2 (10:46→22:35)
[2021-05-06] MEDS: HEPARIN 5,000 UNIT/1 ML VIAL SUB-Q SCH ×2 (10:46→22:33)
--- NOTE | 2021-05-06 12:56 | Progress Note ---
Assessment and Plan 50 y/o female with acute respiratory failure secondary to COVID19 pneumonia. 05/06/21: Continue to wean FiO2 and flow for sats >88%. Tolerating diet now so will stop PPN. Continue anxiety control. Continue IV steroids. Would not object to transfer to [facility] if bed available. Not sure why she was titrated back up to 100% from 85 as all sats documented in the RT's notes were acceptable. Same for under vital signs as well. 05/03/21: Set back last night from yesterday. Continue bipap therapy for now and attempt HFNC maybe later this afternoon. Continue to use PRN ativan but may need to schedule as she likely took off mask from anxiety. Continue IV steroids. Hold on transfer to [facility]. 05/02/21: Continue to wean FiO2 as tolerated for sats >88%. Will continue bipap at night. Patient has no funding so not a candidate for LTACH. Given that she has been stable and not requiring the combo of HFNC and NRB, will consider moving to [facility]. 05/01/21: Continue to wean FiO2 for sats >88%. A sat of 90 is more than acceptable and oxygen should not be increased for this unless patient desats and remains at a sat lower than 88. Bipap at night to give some form of relief and HFNC during the day. Currently on just this alone which is improvement. Ok with daily diuresis but must monitor renal function and BP closely. She was over diuresed last week and we ended up giving fluid back. Prognosis remains guarded. 04/30/21: Will start CLinimix today for nutritional support, without electrolytes. Check labs in am. Prone if able. Continue precedx for anxiety. Very very guarded prognosis. Attempting our best to not intubate. 04/29/21: Continue precedex. Continue IV solumedrol. Prone if able. Guarded prognosis. 04/28/21: Continue Precedex. Picc team attempting to place line now. Stable on Bipap. Ordered steroids IV solumedrol to start today. Prognosis remains guarded, still at very high risk for intubation. 04/27/21: Hypotension improving/improved. Hold on any further lasix dosing. Continue precedex to help with anxeity. later today please attempt HFNC with NRB if needed. Attempt to feed if possible. Steroids end today, please order solumedrol 40q8 to start tomorrow (04/28/21). guarded prognosis. 04/26/21: Hypotension today, most likely from precedex use and diuresis that I did the last several days. Will bolus again today. Consider midodrine if BP does not respond. 04/25/21: Lasix again today. Keep PRN ativan for now. Hold on precedex for now. Guarded prognosis. Labs ordered for tomorrow. 04/24/21: Lasix today. Will also start patient on low dose PRN ativan. If this does not help will then try precedex. Guarded prognosis. 04/23/21: Prone as tolerated. No lasix today. Continue decadron. Guarded prognosis. High risk for intubation and high mortality with intubation. 04/19/21: Prone as tolerated during the day and sleep prone at night. Continue IV remdesivir and steroids. Did get actemra. Guarded prognosis. 1. Daily net negative state 2. Prone if possible 3. IV remdesivir. 4. Should be a candidate for Actemra 5. IV steroids 6. Guarded Prognosis Subjective Date of service: 05/06/21 Principal diagnosis: Covid-19 Interval history: Remains on HFNC. Good sat at 97% this am. Objective Vital Signs - 12hr 05/06/21 05/06/21 05/06/21 02:00 04:00 04:19 Temperature 98.8 F Pulse Rate 72 74 Pulse Rate [ From Monitor] Respiratory 26 H 23 Rate Blood Pressure 98/50 94/50 O2 Sat by Pulse 99 100 100 Oximetry 05/06/21 05/06/21 05/06/21 06:00 07:37 08:00 Temperature 98.1 F Pulse Rate 79 85 Pulse Rate [ 93 H From Monitor] Respiratory 31 H 33 H Rate Blood Pressure 98/43 92/47 O2 Sat by Pulse 99 95 Oximetry 05/06/21 05/06/21 05/06/21 10:00 12:00 12:06 Temperature 98.2 F Pulse Rate 94 H 87 Pulse Rate [ From Monitor] Respiratory 34 H 36 H Rate Blood Pressure 117/64 111/51 O2 Sat by Pulse 96 98 Oximetry Constitutional: no acute distress, alert Eyes: non-icteric ENT: oropharynx moist Neck: supple Effort: normal Ascultation: Bilateral: diminished breath sounds Cardiovascular: regular rate and rhythm Gastrointestinal: normoactive bowel sounds, soft, non-tender, non-distended Integumentary: normal Extremities: no cyanosis, no edema, pink and warm Neurologic: normal mental status, non-focal exam, pupils equal and round, CN II- XII normal Psychiatric: mood appropriate, affect normal CBC and BMP: 05/06/21 05:00 05/06/21 05:00 ABG, PT/INR, D-dimer: ABG ABG pH 7.229 (7.320-7.450) L 05/03/21 04:49 POC ABG pCO2 45.4 mmHg (32.0-48.0) 05/03/21 04:49 ABG pCO2 42.2 mm Hg 04/29/21 14:23 POC ABG pO2 65.3 mmHg (83-108) L 05/03/21 04:49 ABG pO2 52.6 mm Hg (80.0-90.0) L 04/29/21 14:23 POC ABG HCO3 18.5 05/03/21 04:49 ABG O2 Saturation 88.4 (0-100) 05/03/21 04:49 PT/INR, D-dimer D-Dimer 1401.08 ng/mlDDU (0-234) H 05/02/21 04:55 Abnormal lab findings: Abnormal Labs 04/16/21 04/16/21 04/16/21 11:42 11:42 11:42 WBC MCHC RDW 16.1 H Lymph % (Auto) 7.8 L Lymph # (Auto) 0.8 L Seg Neutrophils % 87.7 H Seg Neutrophils # 8.5 H D-Dimer 338.70 H ABG pH POC ABG pO2 ABG pO2 ABG O2 Saturation ABG Oxyhemoglobin ABG Sodium ABG Chloride ABG Glucose Oxyhemoglobin Carboxyhemoglobin Sodium Potassium Chloride Carbon Dioxide BUN Creatinine Glucose 194 H POC Glucose Hemoglobin A1c Ferritin AST ALT Alkaline Phosphatase Lactate Dehydrogenase C-Reactive Protein Total Protein 8.4 H Albumin 3.8 L Arterial Blood Glucose Coronavirus (PCR) 04/16/21 04/16/21 04/17/21 11:42 11:42 03:50 WBC MCHC RDW 16.0 H Lymph % (Auto) 7.7 L Lymph # (Auto) 0.6 L Seg Neutrophils % 89.8 H Seg Neutrophils # D-Dimer ABG pH POC ABG pO2 ABG pO2 ABG O2 Saturation ABG Oxyhemoglobin ABG Sodium ABG Chloride ABG Glucose Oxyhemoglobin Carboxyhemoglobin Sodium Potassium Chloride Carbon Dioxide BUN Creatinine Glucose 195 H POC Glucose Hemoglobin A1c Ferritin 254.3 H AST ALT Alkaline Phosphatase Lactate Dehydrogenase 359 H C-Reactive Protein 15.20 H Total Protein Albumin Arterial Blood Glucose Coronavirus (PCR) 04/17/21 04/17/21 04/17/21 03:50 08:26 08:26 WBC MCHC RDW Lymph % (Auto) Lymph # (Auto) Seg Neutrophils % Seg Neutrophils # D-Dimer 262.48 H ABG pH POC ABG pO2 ABG pO2 ABG O2 Saturation ABG Oxyhemoglobin ABG Sodium ABG Chloride ABG Glucose Oxyhemoglobin Carboxyhemoglobin Sodium Potassium Chloride Carbon Dioxide BUN 20 H Creatinine 0.5 L Glucose 249 H 225 H POC Glucose Hemoglobin A1c Ferritin AST ALT Alkaline Phosphatase Lactate Dehydrogenase 338 H C-Reactive Protein 17.20 H Total Protein Albumin 3.2 L Arterial Blood Glucose Coronavirus (PCR) 04/17/21 04/17/21 04/17/21 08:26 15:04 Unknown WBC MCHC RDW Lymph % (Auto) Lymph # (Auto) Seg Neutrophils % Seg Neutrophils # D-Dimer ABG pH POC ABG pO2 ABG pO2 ABG O2 Saturation ABG Oxyhemoglobin ABG Sodium ABG Chloride ABG Glucose Oxyhemoglobin Carboxyhemoglobin Sodium Potassium Chloride Carbon Dioxide BUN 20 H Creatinine 0.5 L Glucose 246 H POC Glucose Hemoglobin A1c Ferritin 392.0 H AST ALT Alkaline Phosphatase Lactate Dehydrogenase C-Reactive Protein Total Protein 8.3 H Albumin 3.1 L Arterial Blood Glucose Coronavirus (PCR) Positive A 04/18/21 04/18/21 04/18/21 05:06 05:06 07:36 WBC 11.6 H MCHC RDW 16.1 H Lymph % (Auto) Lymph # (Auto) Seg Neutrophils % Seg Neutrophils # D-Dimer ABG pH POC ABG pO2 ABG pO2 ABG O2 Saturation ABG Oxyhemoglobin ABG Sodium ABG Chloride ABG Glucose Oxyhemoglobin Carboxyhemoglobin Sodium Potassium 5.2 H Chloride Carbon Dioxide BUN 22 H Creatinine 0.5 L Glucose 315 H POC Glucose Hemoglobin A1c 8.5 H Ferritin AST ALT Alkaline Phosphatase Lactate Dehydrogenase C-Reactive Protein Total Protein Albumin 3.3 L Arterial Blood Glucose Coronavirus (PCR) 04/18/21 04/18/21 04/18/21 11:59 16:43 23:24 WBC MCHC RDW Lymph % (Auto) Lymph # (Auto) Seg Neutrophils % Seg Neutrophils # D-Dimer ABG pH POC ABG pO2 ABG pO2 ABG O2 Saturation ABG Oxyhemoglobin ABG Sodium ABG Chloride ABG Glucose Oxyhemoglobin Carboxyhemoglobin Sodium Potassium Chloride Carbon Dioxide BUN Creatinine Glucose POC Glucose 284 H 273 H 290 H Hemoglobin A1c Ferritin AST ALT Alkaline Phosphatase Lactate Dehydrogenase C-Reactive Protein Total Protein Albumin Arterial Blood Glucose Coronavirus (PCR) 04/19/21 04/19/21 04/19/21 04:19 04:19 08:10 WBC MCHC RDW 15.7 H Lymph % (Auto) Lymph # (Auto) Seg Neutrophils % Seg Neutrophils # D-Dimer ABG pH POC ABG pO2 ABG pO2 ABG O2 Saturation ABG Oxyhemoglobin ABG Sodium ABG Chloride ABG Glucose Oxyhemoglobin Carboxyhemoglobin Sodium Potassium Chloride Carbon Dioxide BUN 27 H Creatinine 0.4 L Glucose 184 H POC Glucose 194 H Hemoglobin A1c Ferritin AST ALT Alkaline Phosphatase Lactate Dehydrogenase C-Reactive Protein Total Protein Albumin 3.1 L Arterial Blood Glucose Coronavirus (PCR) 04/19/21 04/19/21 04/19/21 11:38 16:25 22:04 WBC MCHC RDW Lymph % (Auto) Lymph # (Auto) Seg Neutrophils % Seg Neutrophils # D-Dimer ABG pH POC ABG pO2 ABG pO2 ABG O2 Saturation ABG Oxyhemoglobin ABG Sodium ABG Chloride ABG Glucose Oxyhemoglobin Carboxyhemoglobin Sodium Potassium Chloride Carbon Dioxide BUN Creatinine Glucose POC Glucose 224 H 297 H 251 H Hemoglobin A1c Ferritin AST ALT Alkaline Phosphatase Lactate Dehydrogenase C-Reactive Protein Total Protein Albumin Arterial Blood Glucose Coronavirus (PCR) 04/20/21 04/20/21 04/20/21 05:28 08:43 16:21 WBC MCHC RDW Lymph % (Auto) Lymph # (Auto) Seg Neutrophils % Seg Neutrophils # D-Dimer ABG pH POC ABG pO2 ABG pO2 ABG O2 Saturation ABG Oxyhemoglobin ABG Sodium ABG Chloride ABG Glucose Oxyhemoglobin Carboxyhemoglobin Sodium Potassium Chloride Carbon Dioxide BUN 27 H Creatinine Glucose 192 H POC Glucose 173 H 253 H Hemoglobin A1c Ferritin AST ALT Alkaline Phosphatase Lactate Dehydrogenase C-Reactive Protein Total Protein Albumin 3.0 L Arterial Blood Glucose Coronavirus (PCR) 04/21/21 04/21/21 04/21/21 07:58 12:05 16:08 WBC MCHC RDW Lymph % (Auto) Lymph # (Auto) Seg Neutrophils % Seg Neutrophils # D-Dimer ABG pH POC ABG pO2 ABG pO2 ABG O2 Saturation ABG Oxyhemoglobin ABG Sodium ABG Chloride ABG Glucose Oxyhemoglobin Carboxyhemoglobin Sodium Potassium Chloride Carbon Dioxide BUN Creatinine Glucose POC Glucose 140 H 252 H 214 H Hemoglobin A1c Ferritin AST ALT Alkaline Phosphatase Lactate Dehydrogenase C-Reactive Protein Total Protein Albumin Arterial Blood Glucose Coronavirus (PCR) 04/21/21 04/22/21 04/22/21 21:42 08:37 12:01 WBC MCHC RDW Lymph % (Auto) Lymph # (Auto) Seg Neutrophils % Seg Neutrophils # D-Dimer ABG pH 7.457 H POC ABG pO2 49.4 L ABG pO2 ABG O2 Saturation ABG Oxyhemoglobin 85.6 L ABG Sodium ABG Chloride ABG Glucose 121 H Oxyhemoglobin Carboxyhemoglobin 0.3 L Sodium Potassium Chloride Carbon Dioxide BUN Creatinine Glucose POC Glucose 162 H 227 H Hemoglobin A1c Ferritin AST ALT Alkaline Phosphatase Lactate Dehydrogenase C-Reactive Protein Total Protein Albumin Arterial Blood Glucose 121 H Coronavirus (PCR) 04/22/21 04/22/21 04/23/21 16:26 22:23 04:52 WBC MCHC RDW 15.7 H Lymph % (Auto) Lymph # (Auto) Seg Neutrophils % Seg Neutrophils # D-Dimer ABG pH POC ABG pO2 ABG pO2 ABG O2 Saturation ABG Oxyhemoglobin ABG Sodium ABG Chloride ABG Glucose Oxyhemoglobin Carboxyhemoglobin Sodium Potassium Chloride Carbon Dioxide BUN Creatinine Glucose POC Glucose 200 H 136 H Hemoglobin A1c Ferritin AST ALT Alkaline Phosphatase Lactate Dehydrogenase C-Reactive Protein Total Protein Albumin Arterial Blood Glucose Coronavirus (PCR) 04/23/21 04/23/21 04/23/21 04:52 12:06 17:41 WBC MCHC RDW Lymph % (Auto) Lymph # (Auto) Seg Neutrophils % Seg Neutrophils # D-Dimer ABG pH POC ABG pO2 ABG pO2 ABG O2 Saturation ABG Oxyhemoglobin ABG Sodium ABG Chloride ABG Glucose Oxyhemoglobin Carboxyhemoglobin Sodium 136 L Potassium Chloride 97.7 L Carbon Dioxide BUN 23 H Creatinine Glucose 101 H POC Glucose 202 H 169 H Hemoglobin A1c Ferritin AST 46 H ALT Alkaline Phosphatase Lactate Dehydrogenase C-Reactive Protein Total Protein Albumin 3.3 L Arterial Blood Glucose Coronavirus (PCR) 04/23/21 04/24/21 04/24/21 23:08 05:17 08:38 WBC MCHC RDW Lymph % (Auto) Lymph # (Auto) Seg Neutrophils % Seg Neutrophils # D-Dimer ABG pH POC ABG pO2 ABG pO2 ABG O2 Saturation ABG Oxyhemoglobin ABG Sodium ABG Chloride ABG Glucose Oxyhemoglobin Carboxyhemoglobin Sodium Potassium Chloride Carbon Dioxide BUN Creatinine Glucose POC Glucose 111 H 108 H 126 H Hemoglobin A1c Ferritin AST ALT Alkaline Phosphatase Lactate Dehydrogenase C-Reactive Protein Total Protein Albumin Arterial Blood Glucose Coronavirus (PCR) 04/24/21 04/24/21 04/24/21 11:54 17:57 21:23 WBC MCHC RDW Lymph % (Auto) Lymph # (Auto) Seg Neutrophils % Seg Neutrophils # D-Dimer ABG pH POC ABG pO2 ABG pO2 ABG O2 Saturation ABG Oxyhemoglobin ABG Sodium ABG Chloride ABG Glucose Oxyhemoglobin Carboxyhemoglobin Sodium Potassium Chloride Carbon Dioxide BUN Creatinine Glucose POC Glucose 147 H 177 H 138 H Hemoglobin A1c Ferritin AST ALT Alkaline Phosphatase Lactate Dehydrogenase C-Reactive Protein Total Protein Albumin Arterial Blood Glucose Coronavirus (PCR) 04/25/21 04/25/21 04/25/21 07:06 11:23 15:43 WBC MCHC RDW Lymph % (Auto) Lymph # (Auto) Seg Neutrophils % Seg Neutrophils # D-Dimer ABG pH POC ABG pO2 ABG pO2 ABG O2 Saturation ABG Oxyhemoglobin ABG Sodium ABG Chloride ABG Glucose Oxyhemoglobin Carboxyhemoglobin Sodium Potassium Chloride Carbon Dioxide BUN Creatinine Glucose POC Glucose 147 H 169 H 227 H Hemoglobin A1c Ferritin AST ALT Alkaline Phosphatase Lactate Dehydrogenase C-Reactive Protein Total Protein Albumin Arterial Blood Glucose Coronavirus (PCR) 04/25/21 04/26/21 04/26/21 21:22 02:45 05:15 WBC MCHC RDW Lymph % (Auto) Lymph # (Auto) Seg Neutrophils % Seg Neutrophils # D-Dimer ABG pH POC ABG pO2 70.7 L ABG pO2 ABG O2 Saturation ABG Oxyhemoglobin 93.0 L ABG Sodium 132.7 L ABG Chloride ABG Glucose 115 H Oxyhemoglobin Carboxyhemoglobin Sodium Potassium Chloride 95.8 L Carbon Dioxide 32 H BUN 20 H Creatinine Glucose 102 H POC Glucose 196 H Hemoglobin A1c Ferritin AST ALT Alkaline Phosphatase Lactate Dehydrogenase C-Reactive Protein Total Protein Albumin Arterial Blood Glucose 115 H Coronavirus (PCR) 04/26/21 04/26/21 04/26/21 11:49 16:09 21:07 WBC MCHC RDW Lymph % (Auto) Lymph # (Auto) Seg Neutrophils % Seg Neutrophils # D-Dimer ABG pH POC ABG pO2 ABG pO2 ABG O2 Saturation ABG Oxyhemoglobin ABG Sodium ABG Chloride ABG Glucose Oxyhemoglobin Carboxyhemoglobin Sodium Potassium Chloride Carbon Dioxide BUN Creatinine Glucose POC Glucose 114 H 188 H 136 H Hemoglobin A1c Ferritin AST ALT Alkaline Phosphatase Lactate Dehydrogenase C-Reactive Protein Total Protein Albumin Arterial Blood Glucose Coronavirus (PCR) 04/27/21 04/27/21 04/28/21 17:34 22:12 08:26 WBC MCHC RDW Lymph % (Auto) Lymph # (Auto) Seg Neutrophils % Seg Neutrophils # D-Dimer ABG pH POC ABG pO2 ABG pO2 ABG O2 Saturation ABG Oxyhemoglobin ABG Sodium ABG Chloride ABG Glucose Oxyhemoglobin Carboxyhemoglobin Sodium Potassium Chloride Carbon Dioxide BUN Creatinine Glucose POC Glucose 128 H 159 H 69 L Hemoglobin A1c Ferritin AST ALT Alkaline Phosphatase Lactate Dehydrogenase C-Reactive Protein Total Protein Albumin Arterial Blood Glucose Coronavirus (PCR) 04/28/21 04/28/21 04/29/21 12:22 21:11 06:05 WBC MCHC RDW Lymph % (Auto) Lymph # (Auto) Seg Neutrophils % Seg Neutrophils # D-Dimer ABG pH POC ABG pO2 ABG pO2 ABG O2 Saturation ABG Oxyhemoglobin ABG Sodium ABG Chloride ABG Glucose Oxyhemoglobin Carboxyhemoglobin Sodium 132 L Potassium Chloride 94.4 L Carbon Dioxide BUN Creatinine 0.2 L D Glucose 140 H POC Glucose 141 H 171 H Hemoglobin A1c Ferritin AST ALT Alkaline Phosphatase Lactate Dehydrogenase C-Reactive Protein Total Protein Albumin Arterial Blood Glucose Coronavirus (PCR) 04/29/21 04/29/21 04/29/21 06:05 07:24 11:36 WBC MCHC 35 H RDW 15.9 H Lymph % (Auto) Lymph # (Auto) Seg Neutrophils % Seg Neutrophils # D-Dimer ABG pH POC ABG pO2 ABG pO2 ABG O2 Saturation ABG Oxyhemoglobin ABG Sodium ABG Chloride ABG Glucose Oxyhemoglobin Carboxyhemoglobin Sodium Potassium Chloride Carbon Dioxide BUN Creatinine Glucose POC Glucose 141 H 220 H Hemoglobin A1c Ferritin AST ALT Alkaline Phosphatase Lactate Dehydrogenase C-Reactive Protein Total Protein Albumin Arterial Blood Glucose Coronavirus (PCR) 04/29/21 04/29/21 04/29/21 14:23 15:30 17:06 WBC MCHC RDW Lymph % (Auto) Lymph # (Auto) Seg Neutrophils % Seg Neutrophils # D-Dimer ABG pH POC ABG pO2 ABG pO2 52.6 L ABG O2 Saturation 86.4 L ABG Oxyhemoglobin ABG Sodium ABG Chloride ABG Glucose Oxyhemoglobin 84.6 L Carboxyhemoglobin Sodium Potassium Chloride Carbon Dioxide BUN Creatinine Glucose POC Glucose 173 H 158 H Hemoglobin A1c Ferritin AST ALT Alkaline Phosphatase Lactate Dehydrogenase C-Reactive Protein Total Protein Albumin Arterial Blood Glucose Coronavirus (PCR) 04/29/21 04/30/21 04/30/21 21:27 07:16 08:00 WBC MCHC RDW 16.1 H Lymph % (Auto) Lymph # (Auto) Seg Neutrophils % Seg Neutrophils # D-Dimer ABG pH POC ABG pO2 ABG pO2 ABG O2 Saturation ABG Oxyhemoglobin ABG Sodium ABG Chloride ABG Glucose Oxyhemoglobin Carboxyhemoglobin Sodium Potassium Chloride Carbon Dioxide BUN Creatinine Glucose POC Glucose 244 H 175 H Hemoglobin A1c Ferritin AST ALT Alkaline Phosphatase Lactate Dehydrogenase C-Reactive Protein Total Protein Albumin Arterial Blood Glucose Coronavirus (PCR) 04/30/21 04/30/21 04/30/21 08:00 08:00 11:03 WBC MCHC RDW Lymph % (Auto) Lymph # (Auto) Seg Neutrophils % Seg Neutrophils # D-Dimer 1796.87 H ABG pH POC ABG pO2 ABG pO2 ABG O2 Saturation ABG Oxyhemoglobin ABG Sodium ABG Chloride ABG Glucose Oxyhemoglobin Carboxyhemoglobin Sodium 135 L Potassium Chloride 96.3 L Carbon Dioxide BUN Creatinine 0.2 L Glucose 153 H POC Glucose 183 H Hemoglobin A1c Ferritin AST 41 H ALT 76 H Alkaline Phosphatase 160 H Lactate Dehydrogenase 522 H C-Reactive Protein Total Protein 6.1 L Albumin 3.1 L Arterial Blood Glucose Coronavirus (PCR) 04/30/21 04/30/21 05/01/21 17:04 22:17 05:39 WBC MCHC RDW Lymph % (Auto) Lymph # (Auto) Seg Neutrophils % Seg Neutrophils # D-Dimer ABG pH POC ABG pO2 ABG pO2 ABG O2 Saturation ABG Oxyhemoglobin ABG Sodium ABG Chloride ABG Glucose Oxyhemoglobin Carboxyhemoglobin Sodium 133 L Potassium Chloride 92.1 L Carbon Dioxide BUN 24 H Creatinine 0.4 L D Glucose 269 H POC Glucose 167 H 208 H Hemoglobin A1c Ferritin AST ALT 66 H Alkaline Phosphatase 142 H Lactate Dehydrogenase C-Reactive Protein Total Protein Albumin 3.2 L Arterial Blood Glucose Coronavirus (PCR) 05/01/21 05/01/21 05/01/21 05:39 05:39 07:45 WBC MCHC RDW 16.0 H Lymph % (Auto) Lymph # (Auto) Seg Neutrophils % Seg Neutrophils # D-Dimer 3984.95 H ABG pH POC ABG pO2 ABG pO2 ABG O2 Saturation ABG Oxyhemoglobin ABG Sodium ABG Chloride ABG Glucose Oxyhemoglobin Carboxyhemoglobin Sodium Potassium Chloride Carbon Dioxide BUN Creatinine Glucose POC Glucose 229 H Hemoglobin A1c Ferritin AST ALT Alkaline Phosphatase Lactate Dehydrogenase C-Reactive Protein Total Protein Albumin Arterial Blood Glucose Coronavirus (PCR) 05/01/21 05/01/21 05/01/21 12:10 15:46 21:06 WBC MCHC RDW Lymph % (Auto) Lymph # (Auto) Seg Neutrophils % Seg Neutrophils # D-Dimer ABG pH POC ABG pO2 ABG pO2 ABG O2 Saturation ABG Oxyhemoglobin ABG Sodium ABG Chloride ABG Glucose Oxyhemoglobin Carboxyhemoglobin Sodium Potassium Chloride Carbon Dioxide BUN Creatinine Glucose POC Glucose 296 H 279 H 232 H Hemoglobin A1c Ferritin AST ALT Alkaline Phosphatase Lactate Dehydrogenase C-Reactive Protein Total Protein Albumin Arterial Blood Glucose Coronavirus (PCR) 05/02/21 05/02/21 05/02/21 04:55 04:55 04:55 WBC MCHC RDW 16.1 H Lymph % (Auto) Lymph # (Auto) Seg Neutrophils % Seg Neutrophils # D-Dimer 1401.08 H ABG pH POC ABG pO2 ABG pO2 ABG O2 Saturation ABG Oxyhemoglobin ABG Sodium ABG Chloride ABG Glucose Oxyhemoglobin Carboxyhemoglobin Sodium 131 L Potassium Chloride 95.5 L Carbon Dioxide BUN 20 H Creatinine 0.3 L Glucose 288 H POC Glucose Hemoglobin A1c Ferritin AST ALT Alkaline Phosphatase Lactate Dehydrogenase C-Reactive Protein Total Protein 6.0 L Albumin 3.1 L Arterial Blood Glucose Coronavirus (PCR) 05/02/21 05/02/21 05/02/21 07:53 11:45 15:25 WBC MCHC RDW Lymph % (Auto) Lymph # (Auto) Seg Neutrophils % Seg Neutrophils # D-Dimer ABG pH POC ABG pO2 ABG pO2 ABG O2 Saturation ABG Oxyhemoglobin ABG Sodium ABG Chloride ABG Glucose Oxyhemoglobin Carboxyhemoglobin Sodium Potassium Chloride Carbon Dioxide BUN Creatinine Glucose POC Glucose 180 H 228 H 275 H Hemoglobin A1c Ferritin AST ALT Alkaline Phosphatase Lactate Dehydrogenase C-Reactive Protein Total Protein Albumin Arterial Blood Glucose Coronavirus (PCR) 05/02/21 05/03/21 05/03/21 22:56 04:30 04:49 WBC MCHC RDW Lymph % (Auto) Lymph # (Auto) Seg Neutrophils % Seg Neutrophils # D-Dimer ABG pH 7.229 L POC ABG pO2 65.3 L ABG pO2 ABG O2 Saturation ABG Oxyhemoglobin 87.8 L ABG Sodium 133.0 L ABG Chloride 97.0 L ABG Glucose 403 H Oxyhemoglobin Carboxyhemoglobin Sodium 130 L Potassium Chloride 94.9 L Carbon Dioxide BUN 20 H Creatinine 0.5 L D Glucose 359 H POC Glucose 293 H Hemoglobin A1c Ferritin AST 54 H ALT 75 H Alkaline Phosphatase 138 H Lactate Dehydrogenase C-Reactive Protein Total Protein Albumin 3.6 L Arterial Blood Glucose 403 H Coronavirus (PCR) 05/03/21 05/03/21 05/03/21 05:27 11:26 17:57 WBC MCHC RDW Lymph % (Auto) Lymph # (Auto) Seg Neutrophils % Seg Neutrophils # D-Dimer ABG pH POC ABG pO2 ABG pO2 ABG O2 Saturation ABG Oxyhemoglobin ABG Sodium ABG Chloride ABG Glucose Oxyhemoglobin Carboxyhemoglobin Sodium Potassium Chloride Carbon Dioxide BUN Creatinine Glucose POC Glucose 361 H 297 H 226 H Hemoglobin A1c Ferritin AST ALT Alkaline Phosphatase Lactate Dehydrogenase C-Reactive Protein Total Protein Albumin Arterial Blood Glucose Coronavirus (PCR) 05/03/21 05/04/21 05/04/21 23:12 05:12 07:30 WBC MCHC RDW Lymph % (Auto) Lymph # (Auto) Seg Neutrophils % Seg Neutrophils # D-Dimer ABG pH POC ABG pO2 ABG pO2 ABG O2 Saturation ABG Oxyhemoglobin ABG Sodium ABG Chloride ABG Glucose Oxyhemoglobin Carboxyhemoglobin Sodium Potassium Chloride Carbon Dioxide BUN Creatinine Glucose POC Glucose 282 H 285 H 254 H Hemoglobin A1c Ferritin AST ALT Alkaline Phosphatase Lactate Dehydrogenase C-Reactive Protein Total Protein Albumin Arterial Blood Glucose Coronavirus (PCR) 05/04/21 05/04/21 05/04/21 08:58 11:45 16:07 WBC MCHC RDW Lymph % (Auto) Lymph # (Auto) Seg Neutrophils % Seg Neutrophils # D-Dimer ABG pH POC ABG pO2 ABG pO2 ABG O2 Saturation ABG Oxyhemoglobin ABG Sodium ABG Chloride ABG Glucose Oxyhemoglobin Carboxyhemoglobin Sodium 134 L Potassium Chloride Carbon Dioxide BUN 20 H Creatinine 0.3 L Glucose 267 H POC Glucose 244 H 297 H Hemoglobin A1c Ferritin AST ALT Alkaline Phosphatase Lactate Dehydrogenase C-Reactive Protein Total Protein 6.0 L Albumin 3.2 L Arterial Blood Glucose Coronavirus (PCR) 05/04/21 05/05/21 05/05/21 23:32 05:00 05:13 WBC MCHC RDW Lymph % (Auto) Lymph # (Auto) Seg Neutrophils % Seg Neutrophils # D-Dimer ABG pH POC ABG pO2 ABG pO2 ABG O2 Saturation ABG Oxyhemoglobin ABG Sodium ABG Chloride ABG Glucose Oxyhemoglobin Carboxyhemoglobin Sodium 132 L Potassium Chloride 96.4 L Carbon Dioxide BUN 22 H Creatinine 0.3 L Glucose 228 H POC Glucose 154 H 260 H Hemoglobin A1c Ferritin AST ALT 67 H Alkaline Phosphatase Lactate Dehydrogenase C-Reactive Protein Total Protein 6.1 L Albumin 3.2 L Arterial Blood Glucose Coronavirus (PCR) 05/05/21 05/05/21 05/05/21 11:32 17:49 23:07 WBC MCHC RDW Lymph % (Auto) Lymph # (Auto) Seg Neutrophils % Seg Neutrophils # D-Dimer ABG pH POC ABG pO2 ABG pO2 ABG O2 Saturation ABG Oxyhemoglobin ABG Sodium ABG Chloride ABG Glucose Oxyhemoglobin Carboxyhemoglobin Sodium Potassium Chloride Carbon Dioxide BUN Creatinine Glucose POC Glucose 279 H 308 H 213 H Hemoglobin A1c Ferritin AST ALT Alkaline Phosphatase Lactate Dehydrogenase C-Reactive Protein Total Protein Albumin Arterial Blood Glucose Coronavirus (PCR) 05/06/21 05/06/21 05/06/21 05:00 05:00 05:20 WBC MCHC RDW 16.8 H Lymph % (Auto) Lymph # (Auto) Seg Neutrophils % Seg Neutrophils # D-Dimer ABG pH POC ABG pO2 ABG pO2 ABG O2 Saturation ABG Oxyhemoglobin ABG Sodium ABG Chloride ABG Glucose Oxyhemoglobin Carboxyhemoglobin Sodium 133 L Potassium Chloride Carbon Dioxide BUN 21 H Creatinine 0.3 L Glucose 259 H POC Glucose 308 H Hemoglobin A1c Ferritin AST ALT Alkaline Phosphatase Lactate Dehydrogenase C-Reactive Protein Total Protein Albumin 3.2 L Arterial Blood Glucose Coronavirus (PCR) 05/06/21 11:24 WBC MCHC RDW Lymph % (Auto) Lymph # (Auto) Seg Neutrophils % Seg Neutrophils # D-Dimer ABG pH POC ABG pO2 ABG pO2 ABG O2 Saturation ABG Oxyhemoglobin ABG Sodium ABG Chloride ABG Glucose Oxyhemoglobin Carboxyhemoglobin Sodium Potassium Chloride Carbon Dioxide BUN Creatinine Glucose POC Glucose 262 H Hemoglobin A1c Ferritin AST ALT Alkaline Phosphatase Lactate Dehydrogenase C-Reactive Protein Total Protein Albumin Arterial Blood Glucose Coronavirus (PCR)
[2021-05-06] MEDS: INSULIN REGULAR, HUMAN 100 UNITS/1 ML SUB-Q SCH ×2 (12:59→18:15)
[2021-05-06 15:10] LABS: Total Cells Counted 100
[2021-05-06 15:11] LABS: Platelet Estimate Consistent w Auto; RBC Morphology Normal
--- NOTE | 2021-05-06 20:49 | Progress Note ---
Assessment and Plan Assessment and plan: This is a 50-year-old female with GERD, obesity, hyperlipidemia admitted as a COVID-19 PUI to the medical floor who was subsequently transferred to [facility]. Assessment and plan: NEURO- acute pain; anxiety -PRN tylenol -S/p dexamethasone for comfort -Follows commands and RAY -PRN pain meds -Patient is [place]-speaking -Right eye- viral conjunctivitis vs subconjunctival hemorrhage continue to monitor started on ofloxacin ou x 5 days artificial tears has not provided relief note that when pt is on bipap she co ringing in her ears -Family updated on plan of care CV- ST -SR-ST -S/p pressors -MAP goal 65 -Pressure monitor per protocol Resp- acute hypoxic resp failure due to covid19 -S/p BiPAP -Currently on high per nasal cannula -See RT notes for titration -Albuterol as needed -Pulmonary hygiene -CCM consulted, appreciate recommendations GI- risk for protein gisella malnutrition given inc metabolic demand with resp insufficiency -TPN started to poor po intake while on bipap however patient is currently on hyper nasal cannula we will discontinue TPN today -Patient on a GI soft diet with aspiration precautions -Nutrition following -Bowel regimen: Colace, senna, MiraLAX -PPI - volume overload; hyponatremia -Last 24 hours -125 -Trend BMP -Replace electrolytes as needed -Monitor intake and output Heme- coagulopathy of covid; on AC -Subcu heparin -Trend CBC -Transfuse for hemoglobin less than 7 -Bilateral lower extremity Doppler ultrasounds negative for DVT ; no CTA or VQ scan to rule out PE ID-covid19 pna; sepsis; viral conjunctivitis right eye -zinc/vitC/D -methylpred 40m every 8; wean as appropriate -Infectious disease consulted, patient recommendations -S/p Actemra and remdesivir -Trend temperature and WBC curve -Follow culture data -Right eye conjunctival redness-> ofloxacin x 5 d Endo- hyperglycemia; obesity -glargine HS -SSI AC/HS -Avoid hypoglycemia The high probability of a clinically significant, sudden or life threatening deterioration of the [resp] system(s) required my full and direct attention, intervention and personal management. The aggregate critical care time was [60] minutes. This time is in addition to time spent performing reported procedures but includes the following: [x] Data Review and interpretation [x] Patient assessment and monitoring of vital signs [x] Documentation [x] Medication orders and management Disposition Plan: transfer to floor Total Time Spent with Patient (Minutes): 60 History Interval history: This is a 50-year-old female with GERD, obesity, HLD who presented to emergency department on 04/16 with complaints of "I cannot breathe" stating that she experienced subjective fever, shortness of breath, malaise, body aches, and dry cough over the past week via EMS. In the emergency department patient was found to have a pulse ox of 86% on room air with exertion. CXR revealed bilateral pneumonia. Patient was admitted to the hospital service to the floor with acute hypoxic respiratory failure and because of COVID-19 PUI. Of note patient is unvaccinated for coronavirus. 04/17: Patient seen and examined, still uncomfortable with Hypoxic respiratory failure and on oxygen, will continue to steroids therapy, start patient on Remdesivir, ID consulted, Pulmonary consult placed. 04/18: Patient seen and examined, she is currently being changed to High flow NC due to worsening HYPOXIA, will transfer to IMCU, Pulmonary and ID following. Will also give a dose of Lasix today. Monitor Inflammatory markers. 04/19: Patient seen and examined still on high flow due to hypoxia. Appears a bit more comfortable today than yesterday. Cough has decreased in frequency. We will continue high dose Dexameathasone to complete 10 days. continue on Remdesivir 200 mg IV q day x 1 followed by 100 mg IV q day x 4 days -Obtain q48-72h inflammatory markers - ferritin, Ddimer, CRP, LDH Will also give lasix daily for the next 3 days and monitor renal function. Family updated. Continue prone positioning as tolerated 04/20: Patient has some desaturation episodes yesterday was placed on BiPAP. Discussed with ICU team for bed availability for patient to be transferred up. Continue prone position as tolerated. 04/21: Patient remains with profound hypoxia secondary to COVID pneumonia. -Continue steroids -Continue remedesir -S/P Actmera 04/22: Patient remains on steroids and remdesivir. ABG shows persistent hypoxia. We will continue current management additional trial of Lasix for the next few days to see if any improvement. Monitor inflammatory markers as needed. Prognosis is guarded remains on high flow 04/23; patient was treated with remdesivir and Actemra. Continue steroid. Patient's prognosis is guarded. 04/24; patient is on steroid. Patient is currently on BiPAP. Prognosis is guarded. Pulmonary is following. Patient was given Lasix and Ativan. 04/25; continue steroid. Patient was on 40 L of high flow oxygen with saturation was 88%. Pulmonary is following. Prognosis is guarded. Patient was given lasix and ativan. 04/26; patient is on BiPAP and Precedex. Prognosis is guarded. 04/27; patient is on BiPAP and Precedex. Patient will finish steroid today and will start on Solu-Medrol tomorrow. Prognosis is guarded. Blood pressure is better today. Hold Lasix. 04/28 patient is on 100 Fio2 via BIPAP. moderately dyspneic, pulmonary note reviewed, lab results reviewed 04/29 no acute events- see systems review above 04/30 no acute events overnight - on airvo today- TPN started -see systems review above 05-01 no acute events overnight- tolerating airvo- see systems review above 05-02 no acute events overnight; tolerating airvo this AM- see systems review above 05/03: Patient has shown remarkable improvement, weaned down to 3 L and satting 95%. Will attempt to walk test today in anticipation for discharge tomorrow. Discussed with PT team to walk the patient today also. 05/04: Patient appears to have had a decline he was down to 3 L satting 95% with anticipation for discharge today but desatted down to 85% on room air and only 88% on 5 L he is now back at 8 L. I encourage incentive spirometer. While he is on Xarelto and has completed the severe steroids which was subsequently changed to Solu-Medrol I will go ahead and order a CTA to make sure that there is not a failure of Xarelto. We will continue to wean as tolerated discussed with nursing staff at bedside. 05/05/21 Patient is on 40 L of oxygen with 80% FiO2. Patient is encouraged to turn to the side more frequently. Patient is denied any shortness of breath and coughing. No other complaints. Follow the CT scan of the chest. Status post remdesivir and Actemra.Solu-Medrol 40 mg IV every 8 hours. Continue current management. Pulmonary follow-up. 8/23: Patient remains on high flow nasal cannula but states that she feels slightly better with the help of translation from her cousin Aspen. Patient is still awaiting a bed on the floor. Patient diet is being tolerated now so we will stop TPN will be stopped tonight. Hospitalist Physical - Constitutional Vitals: Temp Pulse Resp BP Pulse Ox 98.1 F 108 H 37 H 133/55 99 05/06/21 19:44 05/06/21 18:00 05/06/21 18:00 05/06/21 18:00 05/06/21 20:40 General appearance: Present: mild distress - EENT Eyes: Present: PERRL, EOM intact ENT: hearing intact, clear oral mucosa, dentition normal - Neck Neck: Present: normal ROM - Respiratory Respiratory effort: normal Respiratory: bilateral: diminished - Cardiovascular Rhythm: regular Heart Sounds: Present: S1 & S2. Absent: systolic murmur - Extremities Extremities: no ischemia, pulses intact, pulses symmetrical, No edema, normal temperature, normal color, Full ROM Peripheral Pulses: within normal limits - Abdominal General gastrointestinal: soft, non-tender, non-distended, normal bowel sounds - Integumentary Integumentary: Present: warm, dry - Psychiatric Psychiatric: appropriate mood/affect, cooperative - Neurologic Neurologic: CNII-XII intact, no focal deficits, moves all extremities - Allied Health Allied health notes reviewed: nursing, RT, social work, case management Results - Labs CBC & Chem 7: 05/06/21 05:00 05/06/21 05:00 Labs: Laboratory Last Values WBC 11.0 K/mm3 (4.5-11.0) 05/06/21 05:00 RBC 4.57 M/mm3 (3.65-5.03) 05/06/21 05:00 Hgb 13.9 gm/dl (10.1-14.3) 05/06/21 05:00 Hct 40.7 % (30.3-42.9) 05/06/21 05:00 MCV 89 fl (79-97) 05/06/21 05:00 MCH 31 pg (28-32) 05/06/21 05:00 MCHC 34 % (30-34) 05/06/21 05:00 RDW 16.8 % (13.2-15.2) H 05/06/21 05:00 Plt Count 169 K/mm3 (140-440) 05/06/21 05:00 Lymph % (Auto) 7.7 % (13.4-35.0) L 04/17/21 03:50 [place] % (Auto) 2.5 % (0.0-7.3) 04/17/21 03:50 Eos % (Auto) 0.0 % (0.0-4.3) 04/17/21 03:50 Baso % (Auto) 0.0 % (0.0-1.8) 04/17/21 03:50 Lymph # (Auto) 0.6 K/mm3 (1.2-5.4) L 04/17/21 03:50 [place] # (Auto) 0.2 K/mm3 (0.0-0.8) 04/17/21 03:50 Eos # (Auto) 0.0 K/mm3 (0.0-0.4) 04/17/21 03:50 Baso # (Auto) 0.0 K/mm3 (0.0-0.1) 04/17/21 03:50 Add Manual Diff Complete 05/06/21 05:00 Total Counted 100 05/06/21 05:00 Seg Neutrophils % 89.8 % (40.0-70.0) H 04/17/21 03:50 Seg Neuts % (Manual) 99.0 % (40.0-70.0) H 05/06/21 05:00 Monocytes % (Manual) 1.0 % (0.0-7.3) 05/06/21 05:00 Nucleated RBC % Not Reportable 05/06/21 05:00 Seg Neutrophils # 6.7 K/mm3 (1.8-7.7) 04/17/21 03:50 Seg Neutrophils # Man 10.9 K/mm3 (1.8-7.7) H 05/06/21 05:00 Band Neutrophils # 0.0 K/mm3 05/06/21 05:00 Lymphocytes # (Manual) 0.0 K/mm3 (1.2-5.4) L 05/06/21 05:00 Abs React Lymphs (Man) 0.0 K/mm3 05/06/21 05:00 Monocytes # (Manual) 0.1 K/mm3 (0.0-0.8) 05/06/21 05:00 Eosinophils # (Manual) 0.0 K/mm3 (0.0-0.4) 05/06/21 05:00 Basophils # (Manual) 0.0 K/mm3 (0.0-0.1) 05/06/21 05:00 Metamyelocytes # 0.0 K/mm3 05/06/21 05:00 Myelocytes # 0.0 K/mm3 05/06/21 05:00 Promyelocytes # 0.0 K/mm3 05/06/21 05:00 Blast Cells # 0.0 K/mm3 05/06/21 05:00 WBC Morphology Not Reportable 05/06/21 05:00 Hypersegmented Neuts Not Reportable 05/06/21 05:00 Hyposegmented Neuts Not Reportable 05/06/21 05:00 Hypogranular Neuts Not Reportable 05/06/21 05:00 Smudge Cells Not Reportable 05/06/21 05:00 Toxic Granulation Not Reportable 05/06/21 05:00 Toxic Vacuolation Not Reportable 05/06/21 05:00 Dohle Bodies Not Reportable 05/06/21 05:00 Pelger-Huet Anomaly Not Reportable 05/06/21 05:00 Janelle Rods Not Reportable 05/06/21 05:00 Platelet Estimate Consistent w auto 05/06/21 05:00 Clumped Platelets Not Reportable 05/06/21 05:00 Plt Clumps, EDTA Not Reportable 05/06/21 05:00 Large Platelets Not Reportable 05/06/21 05:00 Giant Platelets Not Reportable 05/06/21 05:00 Platelet Satelliting Not Reportable 05/06/21 05:00 Plt Morphology Comment Not Reportable 05/06/21 05:00 RBC Morphology Normal 05/06/21 05:00 Dimorphic RBCs Not Reportable 05/06/21 05:00 Polychromasia Not Reportable 05/06/21 05:00 Hypochromasia Not Reportable 05/06/21 05:00 Poikilocytosis Not Reportable 05/06/21 05:00 Anisocytosis Not Reportable 05/06/21 05:00 Microcytosis Not Reportable 05/06/21 05:00 Macrocytosis Not Reportable 05/06/21 05:00 Spherocytes Not Reportable 05/06/21 05:00 Pappenheimer Bodies Not Reportable 05/06/21 05:00 Sickle Cells Not Reportable 05/06/21 05:00 Target Cells Not Reportable 05/06/21 05:00 Tear Drop Cells Not Reportable 05/06/21 05:00 Ovalocytes Not Reportable 05/06/21 05:00 Helmet Cells Not Reportable 05/06/21 05:00 [place] Bodies Not Reportable 05/06/21 05:00 [place] Rings Not Reportable 05/06/21 05:00 [place] Cells Not Reportable 05/06/21 05:00 Bite Cells Not Reportable 05/06/21 05:00 Crenated Cell Not Reportable 05/06/21 05:00 Elliptocytes Not Reportable 05/06/21 05:00 Acanthocytes (Spur) Not Reportable 05/06/21 05:00 Rouleaux Not Reportable 05/06/21 05:00 Hemoglobin C Crystals Not Reportable 05/06/21 05:00 Schistocytes Not Reportable 05/06/21 05:00 Malaria parasites Not Reportable 05/06/21 05:00 Justin Bodies Not Reportable 05/06/21 05:00 Hem Pathologist Commnt No 05/06/21 05:00 D-Dimer 1401.08 ng/mlDDU (0-234) H 05/02/21 04:55 ABG pH 7.229 (7.320-7.450) L 05/03/21 04:49 POC ABG pCO2 45.4 mmHg (32.0-48.0) 05/03/21 04:49 ABG pCO2 42.2 mm Hg 04/29/21 14:23 POC ABG pO2 65.3 mmHg (83-108) L 05/03/21 04:49 ABG pO2 52.6 mm Hg (80.0-90.0) L 04/29/21 14:23 POC ABG HCO3 18.5 05/03/21 04:49 ABG HCO3 26.0 mmol/L (20.0-26.0) 04/29/21 14:23 ABG O2 Saturation 88.4 (0-100) 05/03/21 04:49 ABG O2 Content 18.1 (0.0-44) 04/29/21 14:23 POC ABG Base Excess -8.9 05/03/21 04:49 ABG Base Excess 1.1 mmol/L (-2.0-3.0) 04/29/21 14:23 ABG Hemoglobin 15.8 (12.0-17.5) 05/03/21 04:49 ABG Oxyhemoglobin 87.8 (94-98) L 05/03/21 04:49 ABG Carboxyhemoglobin 1.5 % (0.0-5.0) 04/29/21 14:23 ABG Methemoglobin 0.1 (0.0-1.5) 05/03/21 04:49 ABG Sodium 133.0 mmol/L (136.0-145.0) L 05/03/21 04:49 ABG Potassium 3.9 mmol/L (3.40-4.50) 05/03/21 04:49 ABG Chloride 97.0 mmol/L (98-107) L 05/03/21 04:49 ABG Glucose 403 mg/dL (65-95) H 05/03/21 04:49 Oxyhemoglobin 84.6 % (95.0-99.0) L 04/29/21 14:23 Carboxyhemoglobin 0.6 (0.5-1.5) 05/03/21 04:49 FiO2 100 % 04/29/21 14:23 FiO2 % 100.0 05/03/21 04:49 Sodium 133 mmol/L (137-145) L 05/06/21 05:00 Potassium 4.4 mmol/L (3.6-5.0) 05/06/21 05:00 Chloride 100.0 mmol/L (98-107) 05/06/21 05:00 Carbon Dioxide 25 mmol/L (22-30) 05/06/21 05:00 Anion Gap 12 mmol/L 05/06/21 05:00 BUN 21 mg/dL (7-17) H 05/06/21 05:00 Creatinine 0.3 mg/dL (0.6-1.2) L 05/06/21 05:00 Estimated GFR > 60 ml/min 05/06/21 05:00 BUN/Creatinine Ratio 70 % 05/06/21 05:00 Glucose 259 mg/dL (65-100) H 05/06/21 05:00 POC Glucose 124 mg/dL (70-105) H 05/06/21 17:54 Hemoglobin A1c 8.5 % (4-6) H 04/18/21 07:36 Calcium 8.4 mg/dL (8.4-10.2) 05/06/21 05:00 Phosphorus 3.60 mg/dL (2.5-4.5) 05/06/21 05:00 Magnesium 2.00 mg/dL (1.7-2.3) 05/06/21 05:00 Ferritin 392.0 ng/mL (10.0-200.0) H 04/17/21 08:26 Total Bilirubin 0.30 mg/dL (0.1-1.2) 05/06/21 05:00 AST 24 units/L (5-40) 05/06/21 05:00 ALT 52 units/L (7-56) 05/06/21 05:00 Alkaline Phosphatase 105 units/L (35-129) 05/06/21 05:00 Lactate Dehydrogenase 522 units/L (91-180) H 04/30/21 08:00 C-Reactive Protein 0.10 mg/dL (0.00-1.30) 05/02/21 04:55 Total Protein 6.4 g/dL (6.3-8.2) 05/06/21 05:00 Albumin 3.2 g/dL (3.9-5) L 05/06/21 05:00 Albumin/Globulin Ratio 1.0 % 05/06/21 05:00 Triglycerides < 9 mg/dL (2-149) 05/03/21 04:30 Procalcitonin < 0.05 ng/mL (<0.15) 04/17/21 08:26 Arterial Blood Glucose 403 mg/dL (65-95) H 05/03/21 04:49 Arterial Blood Ionized Calcium 4.9 mg/dL (4.6-5.3) 05/03/21 04:49 Coronavirus (PCR) Positive (Negative) A 04/17/21 Unknown Amos/IV: Voiding Method External Female Catheter Active Medications - Current Medications Current Medications: Generic Name Dose Route Start Last Admin Trade Name Freq PRN Reason Stop Dose Admin Acetaminophen 650 mg 04/16/21 14:00 04/27/21 18:58 Acetaminophen 325 Mg Tab PO 650 mg Q4H PRN Administration Pain MILD(1-3)/Fever >100.5/[place] Albuterol 2.5 mg 04/16/21 13:39 04/21/21 20:39 Albuterol 2.5 Mg/3 Ml Nebu IH 2.5 mg Q4HRT PRN Administration Shortness Of Breath Artificial Tears 2 drops 04/28/21 18:15 05/01/21 11:29 Hypromellose 0.5% Ophth Soln 15 Ml OU 2 drops Q4H PRN Administration Dry Eye(s) Ascorbic Acid 500 mg 04/24/21 10:00 05/06/21 10:46 Ascorbic Acid 500 Mg Tab PO 500 mg QDAY TUTU Administration Cholecalciferol 1,000 unit 04/17/21 10:00 05/06/21 10:46 Cholecalciferol (Vit D3) 1000 Unit (25 Mcg) Tab PO 1,000 unit QDAY TUTU Administration Dextrose 50 ml 04/18/21 07:30 04/28/21 09:59 Dextrose 50% In Water (25gm) 50 Ml Syringe IV 50 ml Q30MIN PRN Administration Hypoglycemia Protocol Docusate Sodium 100 mg 04/30/21 10:00 05/06/21 10:46 Docusate Sodium 100 Mg Cap PO 100 mg BID TUTU Administration Famotidine 20 mg 05/03/21 11:00 05/06/21 10:46 Famotidine 20 Mg/2 Ml Inj IV 20 mg BID TUTU Administration Heparin Sodium (Porcine) 5,000 unit 04/16/21 22:00 05/06/21 10:46 Heparin 5,000 Unit/1 Ml Vial SUB-Q 5,000 unit Q12HR TUTU Administration Dexmedetomidine HCl 400 mcg/ 104 mls @ 3.604 mls/hr 04/26/21 04:00 05/02/21 10:18 Sodium Chloride IV 0 mcg/kg/hr TITRATE TUTU 0 mls/hr Titration Protocol 0.2 MCG/KG/HR Potassium Chloride 20 meq in 100 mls @ 100 mls/hr 04/30/21 09:25 Kcl 20meq/100ml IV Q1H PRN Potassium 3-3.5 mEq/L Potassium Chloride 20 meq in 100 mls @ 100 mls/hr 04/30/21 09:25 Kcl 20meq/100ml IV Q1H PRN Potassium 2.6-2.9 mEq/L Magnesium Sulfate 1 gm/ Sodium 52 mls @ 26 mls/hr 04/30/21 09:25 Chloride IV Q2H PRN Magnesium level 1.8-2 mg/dL Magnesium Sulfate 2 gm in 50 mls @ 25 mls/hr 04/30/21 09:25 Magnesium Sulfate 2gm/50ml IV Q2H PRN Magnesium level 1.5-1.7 mg/dL Magnesium Sulfate 4 gm in 100 mls @ 25 mls/hr 04/30/21 09:25 Magnesium Sulfate 4gm/100ml IV Q4H PRN Magnesium level < 1.4 mg/dL Sodium Phosphate 15 mmol/ 155 mls @ 40 mls/hr 04/30/21 09:25 Sodium Chloride IV Q4H PRN Phosphorous level 1.2-2.5 mg/d Sodium Phosphate 30 mmol/ 260 mls @ 40 mls/hr 04/30/21 09:25 Sodium Chloride IV Q6H PRN Phosphorous level < 1.2 mg/dL Insulin Glargine 25 units 05/04/21 11:05 05/06/21 10:46 Insulin Glargine 100 Units/Ml SUB-Q 25 units DAILY TUTU Administration Insulin Glargine 10 units 05/06/21 22:00 Insulin Glargine 100 Units/Ml SUB-Q QHS [facility] Insulin Human Lispro 0 unit 05/01/21 12:00 05/06/21 18:15 Insulin Lispro 100 Unit/Ml SUB-Q Not Given Q6HR [facility] Protocol Insulin Human Regular 6 units 05/06/21 12:00 05/06/21 18:15 Insulin Regular, Human 100 Units/1 Ml SUB-Q 6 units Q6HR TUTU Administration Lorazepam 1 mg 05/02/21 08:56 05/04/21 22:13 Lorazepam 2 Mg/Ml Vial IV 1 mg Q4H PRN Administration Anxiety Methylprednisolone Sodium Succinate 40 mg 04/28/21 14:00 05/06/21 13:01 Methylprednisolone Sod Succinate 40 Mg/1 Ml Inj IV 40 mg Q8HR TUTU Administration Ofloxacin 2 drops 05/02/21 12:00 05/06/21 18:15 Ofloxacin 0.3% Ophth Soln 5 Ml OU 05/07/21 11:59 2 drops Q6HR TUTU Administration Ondansetron HCl 4 mg 04/16/21 14:00 05/03/21 13:19 Ondansetron 4 Mg/2 Ml Inj IV 4 mg Q8H PRN Administration Nausea And Vomiting Polyethylene Glycol 17 gm 05/02/21 16:00 05/06/21 10:46 Polyethylene Glycol 3350 17 Gm Powder PO 17 gm QDAY TUTU Administration Senna 17.2 mg 05/02/21 22:00 05/05/21 22:18 Sennosides 8.6 Mg Tab PO 17.2 mg QHS TUTU Administration Sodium Chloride 10 ml 04/16/21 22:00 05/06/21 10:47 Sodium Chloride 0.9% 10 Ml Flush Syringe IV 10 ml BID TUTU Administration Sodium Chloride 10 ml 04/16/21 13:39 Sodium Chloride 0.9% 10 Ml Flush Syringe IV PRN PRN LINE FLUSH Zinc Sulfate 220 mg 04/16/21 22:00 05/06/21 10:46 Zinc Sulfate 220 Mg Cap PO 220 mg BID TUTU Administration Nutrition/Malnutrition Assess - Dietary Evaluation Nutrition/Malnutrition Findings: Nutrition Notes Start: 04/23/21 07:41 Freq: Status: Active Protocol: Document 05/06/21 09:07 (Rec: 05/06/21 10:55 [id number]) Nutrition Notes Initial or Follow up Reassessment Current Diagnosis Respiratory Failure Other Pertinent Diagnosis oral thrush, COVID-19 pneu Current Diet cl liq diet Labs/Tests Na 133 BUN 22 Cr 0.3 BG 259 Pertinent Medications Reviewed Height 4 ft 11.84 in Weight 68.1 kg [place] Body Weight (kg) 45.09 BMI 29.5 Weight Status Overweight Subjective/Other Information TPN d/c by MD Merida and diet will be advanced to GI soft. Burn Absent Trauma Absent Current % PO Poor (25-49%) Minimum of two criteria Yes Energy Intake (severe) < or equal to 50% Estimated Energy Requirement > or equal to 5 days Interpretation of Weight Loss (severe) >5% in 1 month #2 Nutrition Diagnosis Malnutrition Diagnosis Progress(for reassessment Continues documentation) #1 Nutrition Diagnosis Inadequate oral intake Diagnosis Progress(for reassessment Continues documentation) Is patient on ventilator? No Is Patient Ambulatory and/or Out of Bed No REE-([facility]-confined to bed) 1473.888 Kcal/Kg value to use for calculation 25 Approximate Energy Requirements Using 1703 kcal/Kg Calculation Used for Recommendations [place] Additional Notes Pro needs 1.2-2g/k-137g/ day Fluid needs 1ml/kcal Nutrition Intervention Nutrition Support: D/c Add Supplement/Snack (indicate name/kcal Ensure Enlive BID when diet /protein ) advanced Provides kCal: 700 Provides Protein (gm) 40 Goal #1 PO tolerance Goal #2 Meet at least 75% gisella and pro needs via PO Anticipated Discharge Needs: Unable to determine at this time Follow-Up By: 05/07/21 Additional Comments F/u: intakes and PO tolerance
[2021-05-06] MEDS: methylPREDNISolone Sod Succinate 125 MG/2 ML INJ IV SCH (22:31)
[2021-05-06] MEDS: SENNOSIDES 8.6 MG TAB PO SCH (22:34)
[2021-05-07 06:57] LABS: Alanine Aminotransferase 40 units/L (7-56); Blood Urea Nitrogen 23 mg/dL (7-17); Calcium 8.6 mg/dL (8.4-10.2); Hemolysis Index 7
[2021-05-07 07:07] LABS: BUN/Creatinine Ratio 77
--- NOTE | 2021-05-07 07:59 | Progress Note ---
Assessment and Plan Assessment and plan: This is a 50-year-old female with GERD, obesity, HLD who presented to emergency department on 04/16 with complaints of "I cannot breathe" stating that she experienced subjective fever, shortness of breath, malaise, body aches, and dry cough over the past week via EMS. In the emergency department patient was found to have a pulse ox of 86% on room air with exertion. CXR revealed bilateral pneumonia. Patient was admitted to the hospital service to the floor with acute hypoxic respiratory failure and because of COVID-19 PUI. Of note patient is unvaccinated for coronavirus. Now subsequently transferred to medical floor from [facility].. Assessment and plan: NEURO- acute pain; anxiety -PRN tylenol -S/p dexamethasone for comfort -Follows commands and RAY -PRN pain meds -Patient is Turkmen-speaking -Right eye- viral conjunctivitis vs subconjunctival hemorrhage continue to monitor started on ofloxacin ou x 5 days artificial tears has not provided relief Discussed with daughter regarding eyedrops. She states that she will look into finding eyedrops that patient takes at home. -Family updated on plan of care discussed with daughter over phone. CV- ST -SR-ST -S/p pressors now discontinued -MAP goal 65 -Pressure monitor per protocol Resp- acute hypoxic resp failure due to covid19 -S/p BiPAP, now discontinued -Currently on high per nasal cannula at flow rate 40 L/min, FiO2 90% -See RT notes for titration -Albuterol as needed -Pulmonary hygiene -Pulmonology following CTA chest ordered, patient could not tolerate today will reattempt tomorrow. GI- risk for protein gisella malnutrition given inc metabolic demand with resp insufficiency -TPN earlier in hospital admission due to BiPAP however now patient is tolerating p.o. -Patient on a GI soft diet with aspiration precautions -Nutrition following -Bowel regimen: Colace, senna, MiraLAX -PPI - volume overload; hyponatremia -Last 24 hours -125 -Trend BMP -Replace electrolytes as needed -Monitor intake and output Heme- coagulopathy of covid; on AC -Subcu heparin -Trend CBC -Transfuse for hemoglobin less than 7 -Bilateral lower extremity Doppler ultrasounds negative for DVT ; no CTA or VQ scan to rule out PE ID-covid19 pna; sepsis; viral conjunctivitis right eye: Oral candidiasis -zinc/vitC/D -methylpred 40m every 8; wean as appropriate -Infectious disease consulted, patient recommendations -S/p Actemra and remdesivir -Trend temperature and WBC curve -Follow culture data -Right eye conjunctival redness-> ofloxacin x 5 d. Will obtain eyedrop info daughter that patient takes at home. Nystatin solution ordered. Endo- hyperglycemia; obesity -glargine HS -SSI AC/HS -Avoid hypoglycemia Hospital course to date: 04/17: Patient seen and examined, still uncomfortable with Hypoxic respiratory failure and on oxygen, will continue to steroids therapy, start patient on Remdesivir, ID consulted, Pulmonary consult placed. 04/18: Patient seen and examined, she is currently being changed to High flow NC due to worsening HYPOXIA, will transfer to IMCU, Pulmonary and ID following. Will also give a dose of Lasix today. Monitor Inflammatory markers. 04/19: Patient seen and examined still on high flow due to hypoxia. Appears a bit more comfortable today than yesterday. Cough has decreased in frequency. We will continue high dose Dexameathasone to complete 10 days. continue on Remdesiv ir 200 mg IV q day x 1 followed by 100 mg IV q day x 4 days -Obtain q48-72h inflammatory markers - ferritin, Ddimer, CRP, LDH Will also give lasix daily for the next 3 days and monitor renal function. Family updated. Continue prone positioning as tolerated 04/20: Patient has some desaturation episodes yesterday was placed on BiPAP. Discussed with ICU team for bed availability for patient to be transferred up. Continue prone position as tolerated. 04/21: Patient remains with profound hypoxia secondary to COVID pneumonia. -Continue steroids -Continue remedesir -S/P Actmera 04/22: Patient remains on steroids and remdesivir. ABG shows persistent hypoxia. We will continue current management additional trial of Lasix for the next few days to see if any improvement. Monitor inflammatory markers as needed. Prognosis is guarded remains on high flow 04/23; patient was treated with remdesivir and Actemra. Continue steroid. Patient's prognosis is guarded. 04/24; patient is on steroid. Patient is currently on BiPAP. Prognosis is guarded. Pulmonary is following. Patient was given Lasix and Ativan. 04/25; continue steroid. Patient was on 40 L of high flow oxygen with saturation was 88%. Pulmonary is following. Prognosis is guarded. Patient was given lasix and ativan. 04/26; patient is on BiPAP and Precedex. Prognosis is guarded. 04/27; patient is on BiPAP and Precedex. Patient will finish steroid today and will start on Solu-Medrol tomorrow. Prognosis is guarded. Blood pressure is better today. Hold Lasix. 04/28 patient is on 100 Fio2 via BIPAP. moderately dyspneic, pulmonary note reviewed, lab results reviewed 04/29 no acute events- see systems review above 04/30 no acute events overnight - on airvo today- TPN started -see systems review above 05-01 no acute events overnight- tolerating airvo- see systems review above 05-02 no acute events overnight; tolerating airvo this AM- see systems review above 05/03: Patient has shown remarkable improvement, weaned down to 3 L and satting 95%. Will attempt to walk test today in anticipation for discharge tomorrow. Discussed with PT team to walk the patient today also. 05/04: Patient appears to have had a decline he was down to 3 L satting 95% with anticipation for discharge today but desatted down to 85% on room air and only 88% on 5 L he is now back at 8 L. I encourage incentive spirometer. While he is on Xarelto and has completed the severe steroids which was subsequently changed to Solu-Medrol I will go ahead and order a CTA to make sure that there is not a failure of Xarelto. We will continue to wean as tolerated discussed with nursing staff at bedside. 05/05/21 Patient is on 40 L of oxygen with 80% FiO2. Patient is encouraged to turn to the side more frequently. Patient is denied any shortness of breath and coughing. No other complaints. Follow the CT scan of the chest. Status post remdesivir and Actemra.Solu-Medrol 40 mg IV every 8 hours. Continue current management. Pulmonary follow-up. 05/06: Patient remains on high flow nasal cannula but states that she feels slightly better with the help of translation from her cousin Aspen. Patient is still awaiting a bed on the floor. Patient diet is being tolerated now so we will stop TPN will be stopped tonight. 05/07/2021: Patient remains on 40 L/min oxygen at 90% FiO2. Attempt made for CTA chest to rule out pulmonary embolism however patient desatted while at CT. Study was aborted, will reattempt again tomorrow. will follow along with renetta bertrand. Discussed/updated patient and patient's daughter over phone regarding any active clinical issues. Patient only complaint is oral pain from oral candidiasis noted on exam. Nystatin oral solution ordered. Daughter also voiced concern over patient eye drops which she stated that patient needed to restart from home. However she did not remember name of drops. advised daughter to call our hospital with drop name and dosing and we will restart. History Interval history: No acute overnight events. This morning patient attempted to go to CT scanner and could not tolerate without desaturating. Will reattempt CTA chest tomorrow. Patient only complaint is oral pain and dysphagia. Upon examination there appears to be candidiasis in oral mucosa. Discussed appropriate inhaler technique as this appears to be the cause of oral candidiasis. Hospitalist Physical - Physical exam Narrative exam: Constitutional: no acute distress, alert, on hi flow nasal cannula Eyes: non-icteric, right eye erythematous ENT: dry, patchy white plaques noted Neck: supple Effort: normal Ascultation: Bilateral: diminished breath sounds Cardiovascular: regular rate and rhythm Gastrointestinal: normoactive bowel sounds, soft, non-tender, non-distended Integumentary: normal Extremities: no cyanosis, no edema, pink and warm Neurologic: normal mental status, non-focal exam, pupils equal and round, CN II- XII normal Psychiatric: mood appropriate, affect normal - Constitutional Vitals: Temp Pulse Resp BP Pulse Ox 98.8 F 92 H 29 H 122/58 100 05/07/21 03:31 05/07/21 06:00 05/07/21 06:00 05/07/21 06:00 05/07/21 04:00 General appearance: Present: mild distress Results - Labs CBC & Chem 7: 05/06/21 05:00 05/07/21 04:54 Labs: Laboratory Last Values WBC 11.0 K/mm3 (4.5-11.0) 05/06/21 05:00 RBC 4.57 M/mm3 (3.65-5.03) 05/06/21 05:00 Hgb 13.9 gm/dl (10.1-14.3) 05/06/21 05:00 Hct 40.7 % (30.3-42.9) 05/06/21 05:00 MCV 89 fl (79-97) 05/06/21 05:00 MCH 31 pg (28-32) 05/06/21 05:00 MCHC 34 % (30-34) 05/06/21 05:00 RDW 16.8 % (13.2-15.2) H 05/06/21 05:00 Plt Count 169 K/mm3 (140-440) 05/06/21 05:00 Lymph % (Auto) 7.7 % (13.4-35.0) L 04/17/21 03:50 Pepin % (Auto) 2.5 % (0.0-7.3) 04/17/21 03:50 Eos % (Auto) 0.0 % (0.0-4.3) 04/17/21 03:50 Baso % (Auto) 0.0 % (0.0-1.8) 04/17/21 03:50 Lymph # (Auto) 0.6 K/mm3 (1.2-5.4) L 04/17/21 03:50 Pepin # (Auto) 0.2 K/mm3 (0.0-0.8) 04/17/21 03:50 Eos # (Auto) 0.0 K/mm3 (0.0-0.4) 04/17/21 03:50 Baso # (Auto) 0.0 K/mm3 (0.0-0.1) 04/17/21 03:50 Add Manual Diff Complete 05/06/21 05:00 Total Counted 100 05/06/21 05:00 Seg Neutrophils % 89.8 % (40.0-70.0) H 04/17/21 03:50 Seg Neuts % (Manual) 99.0 % (40.0-70.0) H 05/06/21 05:00 Monocytes % (Manual) 1.0 % (0.0-7.3) 05/06/21 05:00 Nucleated RBC % Not Reportable 05/06/21 05:00 Seg Neutrophils # 6.7 K/mm3 (1.8-7.7) 04/17/21 03:50 Seg Neutrophils # Man 10.9 K/mm3 (1.8-7.7) H 05/06/21 05:00 Band Neutrophils # 0.0 K/mm3 05/06/21 05:00 Lymphocytes # (Manual) 0.0 K/mm3 (1.2-5.4) L 05/06/21 05:00 Abs React Lymphs (Man) 0.0 K/mm3 05/06/21 05:00 Monocytes # (Manual) 0.1 K/mm3 (0.0-0.8) 05/06/21 05:00 Eosinophils # (Manual) 0.0 K/mm3 (0.0-0.4) 05/06/21 05:00 Basophils # (Manual) 0.0 K/mm3 (0.0-0.1) 05/06/21 05:00 Metamyelocytes # 0.0 K/mm3 05/06/21 05:00 Myelocytes # 0.0 K/mm3 05/06/21 05:00 Promyelocytes # 0.0 K/mm3 05/06/21 05:00 Blast Cells # 0.0 K/mm3 05/06/21 05:00 WBC Morphology Not Reportable 05/06/21 05:00 Hypersegmented Neuts Not Reportable 05/06/21 05:00 Hyposegmented Neuts Not Reportable 05/06/21 05:00 Hypogranular Neuts Not Reportable 05/06/21 05:00 Smudge Cells Not Reportable 05/06/21 05:00 Toxic Granulation Not Reportable 05/06/21 05:00 Toxic Vacuolation Not Reportable 05/06/21 05:00 Dohle Bodies Not Reportable 05/06/21 05:00 Pelger-Huet Anomaly Not Reportable 05/06/21 05:00 Janelle Rods Not Reportable 05/06/21 05:00 Platelet Estimate Consistent w auto 05/06/21 05:00 Clumped Platelets Not Reportable 05/06/21 05:00 Plt Clumps, EDTA Not Reportable 05/06/21 05:00 Large Platelets Not Reportable 05/06/21 05:00 Giant Platelets Not Reportable 05/06/21 05:00 Platelet Satelliting Not Reportable 05/06/21 05:00 Plt Morphology Comment Not Reportable 05/06/21 05:00 RBC Morphology Normal 05/06/21 05:00 Dimorphic RBCs Not Reportable 05/06/21 05:00 Polychromasia Not Reportable 05/06/21 05:00 Hypochromasia Not Reportable 05/06/21 05:00 Poikilocytosis Not Reportable 05/06/21 05:00 Anisocytosis Not Reportable 05/06/21 05:00 Microcytosis Not Reportable 05/06/21 05:00 Macrocytosis Not Reportable 05/06/21 05:00 Spherocytes Not Reportable 05/06/21 05:00 Pappenheimer Bodies Not Reportable 05/06/21 05:00 Sickle Cells Not Reportable 05/06/21 05:00 Target Cells Not Reportable 05/06/21 05:00 Tear Drop Cells Not Reportable 05/06/21 05:00 Ovalocytes Not Reportable 05/06/21 05:00 Helmet Cells Not Reportable 05/06/21 05:00 [place] Bodies Not Reportable 05/06/21 05:00 [place] Rings Not Reportable 05/06/21 05:00 [place] Cells Not Reportable 05/06/21 05:00 Bite Cells Not Reportable 05/06/21 05:00 Crenated Cell Not Reportable 05/06/21 05:00 Elliptocytes Not Reportable 05/06/21 05:00 Acanthocytes (Spur) Not Reportable 05/06/21 05:00 Rouleaux Not Reportable 05/06/21 05:00 Hemoglobin C Crystals Not Reportable 05/06/21 05:00 Schistocytes Not Reportable 05/06/21 05:00 Malaria parasites Not Reportable 05/06/21 05:00 Justin Bodies Not Reportable 05/06/21 05:00 Hem Pathologist Commnt No 05/06/21 05:00 D-Dimer 1609.28 ng/mlDDU (0-234) H 05/07/21 04:54 ABG pH 7.229 (7.320-7.450) L 05/03/21 04:49 POC ABG pCO2 45.4 mmHg (32.0-48.0) 05/03/21 04:49 ABG pCO2 42.2 mm Hg 04/29/21 14:23 POC ABG pO2 65.3 mmHg (83-108) L 05/03/21 04:49 ABG pO2 52.6 mm Hg (80.0-90.0) L 04/29/21 14:23 POC ABG HCO3 18.5 05/03/21 04:49 ABG HCO3 26.0 mmol/L (20.0-26.0) 04/29/21 14:23 ABG O2 Saturation 88.4 (0-100) 05/03/21 04:49 ABG O2 Content 18.1 (0.0-44) 04/29/21 14:23 POC ABG Base Excess -8.9 05/03/21 04:49 ABG Base Excess 1.1 mmol/L (-2.0-3.0) 04/29/21 14:23 ABG Hemoglobin 15.8 (12.0-17.5) 05/03/21 04:49 ABG Oxyhemoglobin 87.8 (94-98) L 05/03/21 04:49 ABG Carboxyhemoglobin 1.5 % (0.0-5.0) 04/29/21 14:23 ABG Methemoglobin 0.1 (0.0-1.5) 05/03/21 04:49 ABG Sodium 133.0 mmol/L (136.0-145.0) L 05/03/21 04:49 ABG Potassium 3.9 mmol/L (3.40-4.50) 05/03/21 04:49 ABG Chloride 97.0 mmol/L (98-107) L 05/03/21 04:49 ABG Glucose 403 mg/dL (65-95) H 05/03/21 04:49 Oxyhemoglobin 84.6 % (95.0-99.0) L 04/29/21 14:23 Carboxyhemoglobin 0.6 (0.5-1.5) 05/03/21 04:49 FiO2 100 % 04/29/21 14:23 FiO2 % 100.0 05/03/21 04:49 Sodium 136 mmol/L (137-145) L 05/07/21 04:54 Potassium 4.1 mmol/L (3.6-5.0) 05/07/21 04:54 Chloride 100.6 mmol/L (98-107) 05/07/21 04:54 Carbon Dioxide 25 mmol/L (22-30) 05/07/21 04:54 Anion Gap 15 mmol/L 05/07/21 04:54 BUN 23 mg/dL (7-17) H 05/07/21 04:54 Creatinine 0.3 mg/dL (0.6-1.2) L 05/07/21 04:54 Estimated GFR > 60 ml/min 05/07/21 04:54 BUN/Creatinine Ratio 77 % 05/07/21 04:54 Glucose 110 mg/dL (65-100) H 05/07/21 04:54 POC Glucose 249 mg/dL (70-105) H 05/06/21 23:10 Hemoglobin A1c 8.5 % (4-6) H 04/18/21 07:36 Calcium 8.6 mg/dL (8.4-10.2) 05/07/21 04:54 Phosphorus 3.60 mg/dL (2.5-4.5) 05/06/21 05:00 Magnesium 2.00 mg/dL (1.7-2.3) 05/06/21 05:00 Ferritin 392.0 ng/mL (10.0-200.0) H 04/17/21 08:26 Total Bilirubin 0.30 mg/dL (0.1-1.2) 05/07/21 04:54 AST 25 units/L (5-40) 05/07/21 04:54 ALT 40 units/L (7-56) 05/07/21 04:54 Alkaline Phosphatase 99 units/L (35-129) 05/07/21 04:54 Lactate Dehydrogenase 522 units/L (91-180) H 04/30/21 08:00 C-Reactive Protein 0.10 mg/dL (0.00-1.30) 05/02/21 04:55 Total Protein 6.2 g/dL (6.3-8.2) L 05/07/21 04:54 Albumin 3.0 g/dL (3.9-5) L 05/07/21 04:54 Albumin/Globulin Ratio 0.9 % 05/07/21 04:54 Triglycerides < 9 mg/dL (2-149) 05/03/21 04:30 Procalcitonin < 0.05 ng/mL (<0.15) 04/17/21 08:26 Arterial Blood Glucose 403 mg/dL (65-95) H 05/03/21 04:49 Arterial Blood Ionized Calcium 4.9 mg/dL (4.6-5.3) 05/03/21 04:49 Coronavirus (PCR) Positive (Negative) A 04/17/21 Unknown Amos/IV: Voiding Method External Female Catheter Active Medications - Current Medications Current Medications: Generic Name Dose Route Start Last Admin Trade Name Freq PRN Reason Stop Dose Admin Acetaminophen 650 mg 04/16/21 14:00 04/27/21 18:58 Acetaminophen 325 Mg Tab PO 650 mg Q4H PRN Administration Pain MILD(1-3)/Fever >100.5/[place] Albuterol 2.5 mg 04/16/21 13:39 04/21/21 20:39 Albuterol 2.5 Mg/3 Ml Nebu IH 2.5 mg Q4HRT PRN Administration Shortness Of Breath Artificial Tears 2 drops 04/28/21 18:15 05/01/21 11:29 Hypromellose 0.5% Ophth Soln 15 Ml OU 2 drops Q4H PRN Administration Dry Eye(s) Ascorbic Acid 500 mg 04/24/21 10:00 05/06/21 10:46 Ascorbic Acid 500 Mg Tab PO 500 mg QDAY TUTU Administration Cholecalciferol 1,000 unit 04/17/21 10:00 05/06/21 10:46 Cholecalciferol (Vit D3) 1000 Unit (25 Mcg) Tab PO 1,000 unit QDAY TUTU Administration Dextrose 50 ml 04/18/21 07:30 04/28/21 09:59 Dextrose 50% In Water (25gm) 50 Ml Syringe IV 50 ml Q30MIN PRN Administration Hypoglycemia Protocol Docusate Sodium 100 mg 04/30/21 10:00 05/06/21 22:35 Docusate Sodium 100 Mg Cap PO 100 mg BID TUTU Administration Famotidine 20 mg 05/03/21 11:00 05/06/21 22:34 Famotidine 20 Mg/2 Ml Inj IV 20 mg BID TUTU Administration Heparin Sodium (Porcine) 5,000 unit 04/16/21 22:00 05/06/21 22:33 Heparin 5,000 Unit/1 Ml Vial SUB-Q 5,000 unit Q12HR TUTU Administration Potassium Chloride 20 meq in 100 mls @ 100 mls/hr 04/30/21 09:25 Kcl 20meq/100ml IV Q1H PRN Potassium 3-3.5 mEq/L Potassium Chloride 20 meq in 100 mls @ 100 mls/hr 04/30/21 09:25 Kcl 20meq/100ml IV Q1H PRN Potassium 2.6-2.9 mEq/L Magnesium Sulfate 1 gm/ Sodium 52 mls @ 26 mls/hr 04/30/21 09:25 Chloride IV Q2H PRN Magnesium level 1.8-2 mg/dL Magnesium Sulfate 2 gm in 50 mls @ 25 mls/hr 04/30/21 09:25 Magnesium Sulfate 2gm/50ml IV Q2H PRN Magnesium level 1.5-1.7 mg/dL Magnesium Sulfate 4 gm in 100 mls @ 25 mls/hr 04/30/21 09:25 Magnesium Sulfate 4gm/100ml IV Q4H PRN Magnesium level < 1.4 mg/dL Sodium Phosphate 15 mmol/ 155 mls @ 40 mls/hr 04/30/21 09:25 Sodium Chloride IV Q4H PRN Phosphorous level 1.2-2.5 mg/d Sodium Phosphate 30 mmol/ 260 mls @ 40 mls/hr 04/30/21 09:25 Sodium Chloride IV Q6H PRN Phosphorous level < 1.2 mg/dL Insulin Glargine 25 units 05/04/21 11:05 05/06/21 10:46 Insulin Glargine 100 Units/Ml SUB-Q 25 units DAILY TUTU Administration Insulin Glargine 10 units 05/06/21 22:00 05/06/21 22:32 Insulin Glargine 100 Units/Ml SUB-Q 10 units QHS TUTU Administration Insulin Human Lispro 0 unit 05/01/21 12:00 05/07/21 00:00 Insulin Lispro 100 Unit/Ml SUB-Q Not Given Q6HR [facility] Protocol Insulin Human Regular 6 units 05/06/21 12:00 05/07/21 00:00 Insulin Regular, Human 100 Units/1 Ml SUB-Q Not Given Q6HR [facility] Lorazepam 1 mg 05/02/21 08:56 05/04/21 22:13 Lorazepam 2 Mg/Ml Vial IV 1 mg Q4H PRN Administration Anxiety Methylprednisolone Sodium Succinate 40 mg 05/06/21 22:00 05/06/21 22:31 Methylprednisolone Sod Succinate 125 Mg/2 Ml Inj IV 40 mg Q8HR TUTU Administration Ofloxacin 2 drops 05/02/21 12:00 05/06/21 23:00 Ofloxacin 0.3% Ophth Soln 5 Ml OU 05/07/21 11:59 2 drops Q6HR TUTU Administration Ondansetron HCl 4 mg 04/16/21 14:00 05/03/21 13:19 Ondansetron 4 Mg/2 Ml Inj IV 4 mg Q8H PRN Administration Nausea And Vomiting Polyethylene Glycol 17 gm 05/02/21 16:00 05/06/21 10:46 Polyethylene Glycol 3350 17 Gm Powder PO 17 gm QDAY TUTU Administration Senna 17.2 mg 05/02/21 22:00 05/06/21 22:34 Sennosides 8.6 Mg Tab PO 17.2 mg QHS TUTU Administration Sodium Chloride 10 ml 04/16/21 22:00 05/06/21 22:35 Sodium Chloride 0.9% 10 Ml Flush Syringe IV 10 ml BID TUTU Administration Sodium Chloride 10 ml 04/16/21 13:39 Sodium Chloride 0.9% 10 Ml Flush Syringe IV PRN PRN LINE FLUSH Zinc Sulfate 220 mg 04/16/21 22:00 05/06/21 22:35 Zinc Sulfate 220 Mg Cap PO 220 mg BID TUTU Administration Nutrition/Malnutrition Assess - Dietary Evaluation Nutrition/Malnutrition Findings: Nutrition Notes Start: 04/23/21 07:41 Freq: Status: Active Protocol: Document 05/06/21 09:07 (Rec: 05/06/21 10:55 [id number]) Nutrition Notes Initial or Follow up Reassessment Current Diagnosis Respiratory Failure Other Pertinent Diagnosis oral thrush, COVID-19 pneu Current Diet cl liq diet Labs/Tests Na 133 BUN 22 Cr 0.3 BG 259 Pertinent Medications Reviewed Height 4 ft 11.84 in Weight 68.1 kg [place] Body Weight (kg) 45.09 BMI 29.5 Weight Status Overweight Subjective/Other Information TPN d/c by MD Merida and diet will be advanced to GI soft. Burn Absent Trauma Absent Current % PO Poor (25-49%) Minimum of two criteria Yes Energy Intake (severe) < or equal to 50% Estimated Energy Requirement > or equal to 5 days Interpretation of Weight Loss (severe) >5% in 1 month #2 Nutrition Diagnosis Malnutrition Diagnosis Progress(for reassessment Continues documentation) #1 Nutrition Diagnosis Inadequate oral intake Diagnosis Progress(for reassessment Continues documentation) Is patient on ventilator? No Is Patient Ambulatory and/or Out of Bed No REE-([facility]-confined to bed) 1473.888 Kcal/Kg value to use for calculation 25 Approximate Energy Requirements Using 1703 kcal/Kg Calculation Used for Recommendations [facility] Additional Notes Pro needs 1.2-2g/k-137g/ day Fluid needs 1ml/kcal Nutrition Intervention Nutrition Support: D/c Add Supplement/Snack (indicate name/kcal Ensure Enlive BID when diet /protein ) advanced Provides kCal: 700 Provides Protein (gm) 40 Goal #1 PO tolerance Goal #2 Meet at least 75% gisella and pro needs via PO Anticipated Discharge Needs: Unable to determine at this time Follow-Up By: 05/07/21 Additional Comments F/u: intakes and PO tolerance
--- NOTE | 2021-05-07 08:58 | Progress Note ---
Assessment and Plan 50 y/o female with acute respiratory failure secondary to COVID19 pneumonia. 05/07/21: Spoke with IMS, not opposed to full dose anticoagulation. If patient goes back on NRB HFNC combo may need to consider restarting PPN again. Encourage proning. Guarded prognosis. 05/06/21: Continue to wean FiO2 and flow for sats >88%. Tolerating diet now so will stop PPN. Continue anxiety control. Continue IV steroids. Would not object to transfer to [facility] floor if bed available. Not sure why she was titrated back up to 100% from 85 as all sats documented in the RT's notes were acceptable. Same for under vital signs as well. 05/03/21: Set back last night from yesterday. Continue bipap therapy for now and attempt HFNC maybe later this afternoon. Continue to use PRN ativan but may need to schedule as she likely took off mask from anxiety. Continue IV steroids. Hold on transfer to [facility] Floor. 05/02/21: Continue to wean FiO2 as tolerated for sats >88%. Will continue bipap at night. Patient has no funding so not a candidate for LTACH. Given that she has been stable and not requiring the combo of HFNC and NRB, will consider moving to [facility] floor. 05/01/21: Continue to wean FiO2 for sats >88%. A sat of 90 is more than acceptable and oxygen should not be increased for this unless patient desats and remains at a sat lower than 88. Bipap at night to give some form of relief and HFNC during the day. Currently on just this alone which is improvement. Ok with daily diuresis but must monitor renal function and BP closely. She was over diuresed last week and we ended up giving fluid back. Prognosis remains guarded. 04/30/21: Will start CLinimix today for nutritional support, without electrolytes. Check labs in am. Prone if able. Continue precedx for anxiety. Very very guarded prognosis. Attempting our best to not intubate. 04/29/21: Continue precedex. Continue IV solumedrol. Prone if able. Guarded prognosis. 04/28/21: Continue Precedex. Picc team attempting to place line now. Stable on Bipap. Ordered steroids IV solumedrol to start today. Prognosis remains guarded, still at very high risk for intubation. 04/27/21: Hypotension improving/improved. Hold on any further lasix dosing. Continue precedex to help with anxeity. later today please attempt HFNC with NRB if needed. Attempt to feed if possible. Steroids end today, please order solumedrol 40q8 to start tomorrow (04/28/21). guarded prognosis. 04/26/21: Hypotension today, most likely from precedex use and diuresis that I did the last several days. Will bolus again today. Consider midodrine if BP does not respond. 04/25/21: Lasix again today. Keep PRN ativan for now. Hold on precedex for now. Guarded prognosis. Labs ordered for tomorrow. 04/24/21: Lasix today. Will also start patient on low dose PRN ativan. If this does not help will then try precedex. Guarded prognosis. 04/23/21: Prone as tolerated. No lasix today. Continue decadron. Guarded prognosis. High risk for intubation and high mortality with intubation. 04/19/21: Prone as tolerated during the day and sleep prone at night. Continue IV remdesivir and steroids. Did get actemra. Guarded prognosis. 1. Daily net negative state 2. Prone if possible 3. IV remdesivir. 4. Should be a candidate for Actemra 5. IV steroids 6. Guarded Prognosis Subjective Date of service: 05/07/21 Principal diagnosis: Covid-19 Interval history: transferred out of unit secondary to lack of staffing Objective Vital Signs - 12hr 05/06/21 05/06/21 05/06/21 21:00 22:00 22:01 Temperature Pulse Rate 74 74 Respiratory 32 H 30 H 28 H Rate Blood Pressure 111/68 111/68 O2 Sat by Pulse 100 100 100 Oximetry 05/06/21 05/06/21 05/07/21 22:27 23:57 00:00 Temperature 98 F Pulse Rate 71 Respiratory 34 H 26 H Rate Blood Pressure 102/54 O2 Sat by Pulse 96 99 Oximetry 05/07/21 05/07/21 05/07/21 01:08 02:00 03:31 Temperature 98.8 F Pulse Rate 77 Respiratory 28 H Rate Blood Pressure 121/69 O2 Sat by Pulse 98 99 Oximetry 05/07/21 05/07/21 04:00 06:00 Temperature Pulse Rate 72 92 H Respiratory 23 29 H Rate Blood Pressure 107/59 122/58 O2 Sat by Pulse 100 Oximetry Constitutional: no acute distress, alert Eyes: non-icteric ENT: oropharynx moist Neck: supple Effort: normal Ascultation: Bilateral: diminished breath sounds Cardiovascular: regular rate and rhythm Gastrointestinal: normoactive bowel sounds, soft, non-tender, non-distended Integumentary: normal Extremities: no cyanosis, no edema, pink and warm Neurologic: normal mental status, non-focal exam, pupils equal and round, CN II- XII normal Psychiatric: mood appropriate, affect normal CBC and BMP: 05/06/21 05:00 05/07/21 04:54 ABG, PT/INR, D-dimer: ABG ABG pH 7.229 (7.320-7.450) L 05/03/21 04:49 POC ABG pCO2 45.4 mmHg (32.0-48.0) 05/03/21 04:49 ABG pCO2 42.2 mm Hg 04/29/21 14:23 POC ABG pO2 65.3 mmHg (83-108) L 05/03/21 04:49 ABG pO2 52.6 mm Hg (80.0-90.0) L 04/29/21 14:23 POC ABG HCO3 18.5 05/03/21 04:49 ABG O2 Saturation 88.4 (0-100) 05/03/21 04:49 PT/INR, D-dimer D-Dimer 1609.28 ng/mlDDU (0-234) H 05/07/21 04:54 Abnormal lab findings: Abnormal Labs 04/16/21 04/16/21 04/16/21 11:42 11:42 11:42 WBC MCHC RDW 16.1 H Lymph % (Auto) 7.8 L Lymph # (Auto) 0.8 L Seg Neutrophils % 87.7 H Seg Neuts % (Manual) Seg Neutrophils # 8.5 H Seg Neutrophils # Man Lymphocytes # (Manual) D-Dimer 338.70 H ABG pH POC ABG pO2 ABG pO2 ABG O2 Saturation ABG Oxyhemoglobin ABG Sodium ABG Chloride ABG Glucose Oxyhemoglobin Carboxyhemoglobin Sodium Potassium Chloride Carbon Dioxide BUN Creatinine Glucose 194 H POC Glucose Hemoglobin A1c Ferritin AST ALT Alkaline Phosphatase Lactate Dehydrogenase C-Reactive Protein Total Protein 8.4 H Albumin 3.8 L Arterial Blood Glucose Coronavirus (PCR) 04/16/21 04/16/21 04/17/21 11:42 11:42 03:50 WBC MCHC RDW 16.0 H Lymph % (Auto) 7.7 L Lymph # (Auto) 0.6 L Seg Neutrophils % 89.8 H Seg Neuts % (Manual) Seg Neutrophils # Seg Neutrophils # Man Lymphocytes # (Manual) D-Dimer ABG pH POC ABG pO2 ABG pO2 ABG O2 Saturation ABG Oxyhemoglobin ABG Sodium ABG Chloride ABG Glucose Oxyhemoglobin Carboxyhemoglobin Sodium Potassium Chloride Carbon Dioxide BUN Creatinine Glucose 195 H POC Glucose Hemoglobin A1c Ferritin 254.3 H AST ALT Alkaline Phosphatase Lactate Dehydrogenase 359 H C-Reactive Protein 15.20 H Total Protein Albumin Arterial Blood Glucose Coronavirus (PCR) 04/17/21 04/17/21 04/17/21 03:50 08:26 08:26 WBC MCHC RDW Lymph % (Auto) Lymph # (Auto) Seg Neutrophils % Seg Neuts % (Manual) Seg Neutrophils # Seg Neutrophils # Man Lymphocytes # (Manual) D-Dimer 262.48 H ABG pH POC ABG pO2 ABG pO2 ABG O2 Saturation ABG Oxyhemoglobin ABG Sodium ABG Chloride ABG Glucose Oxyhemoglobin Carboxyhemoglobin Sodium Potassium Chloride Carbon Dioxide BUN 20 H Creatinine 0.5 L Glucose 249 H 225 H POC Glucose Hemoglobin A1c Ferritin AST ALT Alkaline Phosphatase Lactate Dehydrogenase 338 H C-Reactive Protein 17.20 H Total Protein Albumin 3.2 L Arterial Blood Glucose Coronavirus (PCR) 04/17/21 04/17/21 04/17/21 08:26 15:04 Unknown WBC MCHC RDW Lymph % (Auto) Lymph # (Auto) Seg Neutrophils % Seg Neuts % (Manual) Seg Neutrophils # Seg Neutrophils # Man Lymphocytes # (Manual) D-Dimer ABG pH POC ABG pO2 ABG pO2 ABG O2 Saturation ABG Oxyhemoglobin ABG Sodium ABG Chloride ABG Glucose Oxyhemoglobin Carboxyhemoglobin Sodium Potassium Chloride Carbon Dioxide BUN 20 H Creatinine 0.5 L Glucose 246 H POC Glucose Hemoglobin A1c Ferritin 392.0 H AST ALT Alkaline Phosphatase Lactate Dehydrogenase C-Reactive Protein Total Protein 8.3 H Albumin 3.1 L Arterial Blood Glucose Coronavirus (PCR) Positive A 04/18/21 04/18/21 04/18/21 05:06 05:06 07:36 WBC 11.6 H MCHC RDW 16.1 H Lymph % (Auto) Lymph # (Auto) Seg Neutrophils % Seg Neuts % (Manual) Seg Neutrophils # Seg Neutrophils # Man Lymphocytes # (Manual) D-Dimer ABG pH POC ABG pO2 ABG pO2 ABG O2 Saturation ABG Oxyhemoglobin ABG Sodium ABG Chloride ABG Glucose Oxyhemoglobin Carboxyhemoglobin Sodium Potassium 5.2 H Chloride Carbon Dioxide BUN 22 H Creatinine 0.5 L Glucose 315 H POC Glucose Hemoglobin A1c 8.5 H Ferritin AST ALT Alkaline Phosphatase Lactate Dehydrogenase C-Reactive Protein Total Protein Albumin 3.3 L Arterial Blood Glucose Coronavirus (PCR) 04/18/21 04/18/21 04/18/21 11:59 16:43 23:24 WBC MCHC RDW Lymph % (Auto) Lymph # (Auto) Seg Neutrophils % Seg Neuts % (Manual) Seg Neutrophils # Seg Neutrophils # Man Lymphocytes # (Manual) D-Dimer ABG pH POC ABG pO2 ABG pO2 ABG O2 Saturation ABG Oxyhemoglobin ABG Sodium ABG Chloride ABG Glucose Oxyhemoglobin Carboxyhemoglobin Sodium Potassium Chloride Carbon Dioxide BUN Creatinine Glucose POC Glucose 284 H 273 H 290 H Hemoglobin A1c Ferritin AST ALT Alkaline Phosphatase Lactate Dehydrogenase C-Reactive Protein Total Protein Albumin Arterial Blood Glucose Coronavirus (PCR) 04/19/21 04/19/21 04/19/21 04:19 04:19 08:10 WBC MCHC RDW 15.7 H Lymph % (Auto) Lymph # (Auto) Seg Neutrophils % Seg Neuts % (Manual) Seg Neutrophils # Seg Neutrophils # Man Lymphocytes # (Manual) D-Dimer ABG pH POC ABG pO2 ABG pO2 ABG O2 Saturation ABG Oxyhemoglobin ABG Sodium ABG Chloride ABG Glucose Oxyhemoglobin Carboxyhemoglobin Sodium Potassium Chloride Carbon Dioxide BUN 27 H Creatinine 0.4 L Glucose 184 H POC Glucose 194 H Hemoglobin A1c Ferritin AST ALT Alkaline Phosphatase Lactate Dehydrogenase C-Reactive Protein Total Protein Albumin 3.1 L Arterial Blood Glucose Coronavirus (PCR) 04/19/21 04/19/21 04/19/21 11:38 16:25 22:04 WBC MCHC RDW Lymph % (Auto) Lymph # (Auto) Seg Neutrophils % Seg Neuts % (Manual) Seg Neutrophils # Seg Neutrophils # Man Lymphocytes # (Manual) D-Dimer ABG pH POC ABG pO2 ABG pO2 ABG O2 Saturation ABG Oxyhemoglobin ABG Sodium ABG Chloride ABG Glucose Oxyhemoglobin Carboxyhemoglobin Sodium Potassium Chloride Carbon Dioxide BUN Creatinine Glucose POC Glucose 224 H 297 H 251 H Hemoglobin A1c Ferritin AST ALT Alkaline Phosphatase Lactate Dehydrogenase C-Reactive Protein Total Protein Albumin Arterial Blood Glucose Coronavirus (PCR) 04/20/21 04/20/21 04/20/21 05:28 08:43 16:21 WBC MCHC RDW Lymph % (Auto) Lymph # (Auto) Seg Neutrophils % Seg Neuts % (Manual) Seg Neutrophils # Seg Neutrophils # Man Lymphocytes # (Manual) D-Dimer ABG pH POC ABG pO2 ABG pO2 ABG O2 Saturation ABG Oxyhemoglobin ABG Sodium ABG Chloride ABG Glucose Oxyhemoglobin Carboxyhemoglobin Sodium Potassium Chloride Carbon Dioxide BUN 27 H Creatinine Glucose 192 H POC Glucose 173 H 253 H Hemoglobin A1c Ferritin AST ALT Alkaline Phosphatase Lactate Dehydrogenase C-Reactive Protein Total Protein Albumin 3.0 L Arterial Blood Glucose Coronavirus (PCR) 04/21/21 04/21/21 04/21/21 07:58 12:05 16:08 WBC MCHC RDW Lymph % (Auto) Lymph # (Auto) Seg Neutrophils % Seg Neuts % (Manual) Seg Neutrophils # Seg Neutrophils # Man Lymphocytes # (Manual) D-Dimer ABG pH POC ABG pO2 ABG pO2 ABG O2 Saturation ABG Oxyhemoglobin ABG Sodium ABG Chloride ABG Glucose Oxyhemoglobin Carboxyhemoglobin Sodium Potassium Chloride Carbon Dioxide BUN Creatinine Glucose POC Glucose 140 H 252 H 214 H Hemoglobin A1c Ferritin AST ALT Alkaline Phosphatase Lactate Dehydrogenase C-Reactive Protein Total Protein Albumin Arterial Blood Glucose Coronavirus (PCR) 04/21/21 04/22/21 04/22/21 21:42 08:37 12:01 WBC MCHC RDW Lymph % (Auto) Lymph # (Auto) Seg Neutrophils % Seg Neuts % (Manual) Seg Neutrophils # Seg Neutrophils # Man Lymphocytes # (Manual) D-Dimer ABG pH 7.457 H POC ABG pO2 49.4 L ABG pO2 ABG O2 Saturation ABG Oxyhemoglobin 85.6 L ABG Sodium ABG Chloride ABG Glucose 121 H Oxyhemoglobin Carboxyhemoglobin 0.3 L Sodium Potassium Chloride Carbon Dioxide BUN Creatinine Glucose POC Glucose 162 H 227 H Hemoglobin A1c Ferritin AST ALT Alkaline Phosphatase Lactate Dehydrogenase C-Reactive Protein Total Protein Albumin Arterial Blood Glucose 121 H Coronavirus (PCR) 04/22/21 04/22/21 04/23/21 16:26 22:23 04:52 WBC MCHC RDW 15.7 H Lymph % (Auto) Lymph # (Auto) Seg Neutrophils % Seg Neuts % (Manual) Seg Neutrophils # Seg Neutrophils # Man Lymphocytes # (Manual) D-Dimer ABG pH POC ABG pO2 ABG pO2 ABG O2 Saturation ABG Oxyhemoglobin ABG Sodium ABG Chloride ABG Glucose Oxyhemoglobin Carboxyhemoglobin Sodium Potassium Chloride Carbon Dioxide BUN Creatinine Glucose POC Glucose 200 H 136 H Hemoglobin A1c Ferritin AST ALT Alkaline Phosphatase Lactate Dehydrogenase C-Reactive Protein Total Protein Albumin Arterial Blood Glucose Coronavirus (PCR) 04/23/21 04/23/21 04/23/21 04:52 12:06 17:41 WBC MCHC RDW Lymph % (Auto) Lymph # (Auto) Seg Neutrophils % Seg Neuts % (Manual) Seg Neutrophils # Seg Neutrophils # Man Lymphocytes # (Manual) D-Dimer ABG pH POC ABG pO2 ABG pO2 ABG O2 Saturation ABG Oxyhemoglobin ABG Sodium ABG Chloride ABG Glucose Oxyhemoglobin Carboxyhemoglobin Sodium 136 L Potassium Chloride 97.7 L Carbon Dioxide BUN 23 H Creatinine Glucose 101 H POC Glucose 202 H 169 H Hemoglobin A1c Ferritin AST 46 H ALT Alkaline Phosphatase Lactate Dehydrogenase C-Reactive Protein Total Protein Albumin 3.3 L Arterial Blood Glucose Coronavirus (PCR) 04/23/21 04/24/21 04/24/21 23:08 05:17 08:38 WBC MCHC RDW Lymph % (Auto) Lymph # (Auto) Seg Neutrophils % Seg Neuts % (Manual) Seg Neutrophils # Seg Neutrophils # Man Lymphocytes # (Manual) D-Dimer ABG pH POC ABG pO2 ABG pO2 ABG O2 Saturation ABG Oxyhemoglobin ABG Sodium ABG Chloride ABG Glucose Oxyhemoglobin Carboxyhemoglobin Sodium Potassium Chloride Carbon Dioxide BUN Creatinine Glucose POC Glucose 111 H 108 H 126 H Hemoglobin A1c Ferritin AST ALT Alkaline Phosphatase Lactate Dehydrogenase C-Reactive Protein Total Protein Albumin Arterial Blood Glucose Coronavirus (PCR) 04/24/21 04/24/21 04/24/21 11:54 17:57 21:23 WBC MCHC RDW Lymph % (Auto) Lymph # (Auto) Seg Neutrophils % Seg Neuts % (Manual) Seg Neutrophils # Seg Neutrophils # Man Lymphocytes # (Manual) D-Dimer ABG pH POC ABG pO2 ABG pO2 ABG O2 Saturation ABG Oxyhemoglobin ABG Sodium ABG Chloride ABG Glucose Oxyhemoglobin Carboxyhemoglobin Sodium Potassium Chloride Carbon Dioxide BUN Creatinine Glucose POC Glucose 147 H 177 H 138 H Hemoglobin A1c Ferritin AST ALT Alkaline Phosphatase Lactate Dehydrogenase C-Reactive Protein Total Protein Albumin Arterial Blood Glucose Coronavirus (PCR) 04/25/21 04/25/21 04/25/21 07:06 11:23 15:43 WBC MCHC RDW Lymph % (Auto) Lymph # (Auto) Seg Neutrophils % Seg Neuts % (Manual) Seg Neutrophils # Seg Neutrophils # Man Lymphocytes # (Manual) D-Dimer ABG pH POC ABG pO2 ABG pO2 ABG O2 Saturation ABG Oxyhemoglobin ABG Sodium ABG Chloride ABG Glucose Oxyhemoglobin Carboxyhemoglobin Sodium Potassium Chloride Carbon Dioxide BUN Creatinine Glucose POC Glucose 147 H 169 H 227 H Hemoglobin A1c Ferritin AST ALT Alkaline Phosphatase Lactate Dehydrogenase C-Reactive Protein Total Protein Albumin Arterial Blood Glucose Coronavirus (PCR) 04/25/21 04/26/21 04/26/21 21:22 02:45 05:15 WBC MCHC RDW Lymph % (Auto) Lymph # (Auto) Seg Neutrophils % Seg Neuts % (Manual) Seg Neutrophils # Seg Neutrophils # Man Lymphocytes # (Manual) D-Dimer ABG pH POC ABG pO2 70.7 L ABG pO2 ABG O2 Saturation ABG Oxyhemoglobin 93.0 L ABG Sodium 132.7 L ABG Chloride ABG Glucose 115 H Oxyhemoglobin Carboxyhemoglobin Sodium Potassium Chloride 95.8 L Carbon Dioxide 32 H BUN 20 H Creatinine Glucose 102 H POC Glucose 196 H Hemoglobin A1c Ferritin AST ALT Alkaline Phosphatase Lactate Dehydrogenase C-Reactive Protein Total Protein Albumin Arterial Blood Glucose 115 H Coronavirus (PCR) 04/26/21 04/26/21 04/26/21 11:49 16:09 21:07 WBC MCHC RDW Lymph % (Auto) Lymph # (Auto) Seg Neutrophils % Seg Neuts % (Manual) Seg Neutrophils # Seg Neutrophils # Man Lymphocytes # (Manual) D-Dimer ABG pH POC ABG pO2 ABG pO2 ABG O2 Saturation ABG Oxyhemoglobin ABG Sodium ABG Chloride ABG Glucose Oxyhemoglobin Carboxyhemoglobin Sodium Potassium Chloride Carbon Dioxide BUN Creatinine Glucose POC Glucose 114 H 188 H 136 H Hemoglobin A1c Ferritin AST ALT Alkaline Phosphatase Lactate Dehydrogenase C-Reactive Protein Total Protein Albumin Arterial Blood Glucose Coronavirus (PCR) 04/27/21 04/27/21 04/28/21 17:34 22:12 08:26 WBC MCHC RDW Lymph % (Auto) Lymph # (Auto) Seg Neutrophils % Seg Neuts % (Manual) Seg Neutrophils # Seg Neutrophils # Man Lymphocytes # (Manual) D-Dimer ABG pH POC ABG pO2 ABG pO2 ABG O2 Saturation ABG Oxyhemoglobin ABG Sodium ABG Chloride ABG Glucose Oxyhemoglobin Carboxyhemoglobin Sodium Potassium Chloride Carbon Dioxide BUN Creatinine Glucose POC Glucose 128 H 159 H 69 L Hemoglobin A1c Ferritin AST ALT Alkaline Phosphatase Lactate Dehydrogenase C-Reactive Protein Total Protein Albumin Arterial Blood Glucose Coronavirus (PCR) 04/28/21 04/28/21 04/29/21 12:22 21:11 06:05 WBC MCHC RDW Lymph % (Auto) Lymph # (Auto) Seg Neutrophils % Seg Neuts % (Manual) Seg Neutrophils # Seg Neutrophils # Man Lymphocytes # (Manual) D-Dimer ABG pH POC ABG pO2 ABG pO2 ABG O2 Saturation ABG Oxyhemoglobin ABG Sodium ABG Chloride ABG Glucose Oxyhemoglobin Carboxyhemoglobin Sodium 132 L Potassium Chloride 94.4 L Carbon Dioxide BUN Creatinine 0.2 L D Glucose 140 H POC Glucose 141 H 171 H Hemoglobin A1c Ferritin AST ALT Alkaline Phosphatase Lactate Dehydrogenase C-Reactive Protein Total Protein Albumin Arterial Blood Glucose Coronavirus (PCR) 04/29/21 04/29/21 04/29/21 06:05 07:24 11:36 WBC MCHC 35 H RDW 15.9 H Lymph % (Auto) Lymph # (Auto) Seg Neutrophils % Seg Neuts % (Manual) Seg Neutrophils # Seg Neutrophils # Man Lymphocytes # (Manual) D-Dimer ABG pH POC ABG pO2 ABG pO2 ABG O2 Saturation ABG Oxyhemoglobin ABG Sodium ABG Chloride ABG Glucose Oxyhemoglobin Carboxyhemoglobin Sodium Potassium Chloride Carbon Dioxide BUN Creatinine Glucose POC Glucose 141 H 220 H Hemoglobin A1c Ferritin AST ALT Alkaline Phosphatase Lactate Dehydrogenase C-Reactive Protein Total Protein Albumin Arterial Blood Glucose Coronavirus (PCR) 04/29/21 04/29/21 04/29/21 14:23 15:30 17:06 WBC MCHC RDW Lymph % (Auto) Lymph # (Auto) Seg Neutrophils % Seg Neuts % (Manual) Seg Neutrophils # Seg Neutrophils # Man Lymphocytes # (Manual) D-Dimer ABG pH POC ABG pO2 ABG pO2 52.6 L ABG O2 Saturation 86.4 L ABG Oxyhemoglobin ABG Sodium ABG Chloride ABG Glucose Oxyhemoglobin 84.6 L Carboxyhemoglobin Sodium Potassium Chloride Carbon Dioxide BUN Creatinine Glucose POC Glucose 173 H 158 H Hemoglobin A1c Ferritin AST ALT Alkaline Phosphatase Lactate Dehydrogenase C-Reactive Protein Total Protein Albumin Arterial Blood Glucose Coronavirus (PCR) 04/29/21 04/30/21 04/30/21 21:27 07:16 08:00 WBC MCHC RDW 16.1 H Lymph % (Auto) Lymph # (Auto) Seg Neutrophils % Seg Neuts % (Manual) Seg Neutrophils # Seg Neutrophils # Man Lymphocytes # (Manual) D-Dimer ABG pH POC ABG pO2 ABG pO2 ABG O2 Saturation ABG Oxyhemoglobin ABG Sodium ABG Chloride ABG Glucose Oxyhemoglobin Carboxyhemoglobin Sodium Potassium Chloride Carbon Dioxide BUN Creatinine Glucose POC Glucose 244 H 175 H Hemoglobin A1c Ferritin AST ALT Alkaline Phosphatase Lactate Dehydrogenase C-Reactive Protein Total Protein Albumin Arterial Blood Glucose Coronavirus (PCR) 04/30/21 04/30/21 04/30/21 08:00 08:00 11:03 WBC MCHC RDW Lymph % (Auto) Lymph # (Auto) Seg Neutrophils % Seg Neuts % (Manual) Seg Neutrophils # Seg Neutrophils # Man Lymphocytes # (Manual) D-Dimer 1796.87 H ABG pH POC ABG pO2 ABG pO2 ABG O2 Saturation ABG Oxyhemoglobin ABG Sodium ABG Chloride ABG Glucose Oxyhemoglobin Carboxyhemoglobin Sodium 135 L Potassium Chloride 96.3 L Carbon Dioxide BUN Creatinine 0.2 L Glucose 153 H POC Glucose 183 H Hemoglobin A1c Ferritin AST 41 H ALT 76 H Alkaline Phosphatase 160 H Lactate Dehydrogenase 522 H C-Reactive Protein Total Protein 6.1 L Albumin 3.1 L Arterial Blood Glucose Coronavirus (PCR) 04/30/21 04/30/21 05/01/21 17:04 22:17 05:39 WBC MCHC RDW Lymph % (Auto) Lymph # (Auto) Seg Neutrophils % Seg Neuts % (Manual) Seg Neutrophils # Seg Neutrophils # Man Lymphocytes # (Manual) D-Dimer ABG pH POC ABG pO2 ABG pO2 ABG O2 Saturation ABG Oxyhemoglobin ABG Sodium ABG Chloride ABG Glucose Oxyhemoglobin Carboxyhemoglobin Sodium 133 L Potassium Chloride 92.1 L Carbon Dioxide BUN 24 H Creatinine 0.4 L D Glucose 269 H POC Glucose 167 H 208 H Hemoglobin A1c Ferritin AST ALT 66 H Alkaline Phosphatase 142 H Lactate Dehydrogenase C-Reactive Protein Total Protein Albumin 3.2 L Arterial Blood Glucose Coronavirus (PCR) 05/01/21 05/01/21 05/01/21 05:39 05:39 07:45 WBC MCHC RDW 16.0 H Lymph % (Auto) Lymph # (Auto) Seg Neutrophils % Seg Neuts % (Manual) Seg Neutrophils # Seg Neutrophils # Man Lymphocytes # (Manual) D-Dimer 3984.95 H ABG pH POC ABG pO2 ABG pO2 ABG O2 Saturation ABG Oxyhemoglobin ABG Sodium ABG Chloride ABG Glucose Oxyhemoglobin Carboxyhemoglobin Sodium Potassium Chloride Carbon Dioxide BUN Creatinine Glucose POC Glucose 229 H Hemoglobin A1c Ferritin AST ALT Alkaline Phosphatase Lactate Dehydrogenase C-Reactive Protein Total Protein Albumin Arterial Blood Glucose Coronavirus (PCR) 05/01/21 05/01/21 05/01/21 12:10 15:46 21:06 WBC MCHC RDW Lymph % (Auto) Lymph # (Auto) Seg Neutrophils % Seg Neuts % (Manual) Seg Neutrophils # Seg Neutrophils # Man Lymphocytes # (Manual) D-Dimer ABG pH POC ABG pO2 ABG pO2 ABG O2 Saturation ABG Oxyhemoglobin ABG Sodium ABG Chloride ABG Glucose Oxyhemoglobin Carboxyhemoglobin Sodium Potassium Chloride Carbon Dioxide BUN Creatinine Glucose POC Glucose 296 H 279 H 232 H Hemoglobin A1c Ferritin AST ALT Alkaline Phosphatase Lactate Dehydrogenase C-Reactive Protein Total Protein Albumin Arterial Blood Glucose Coronavirus (PCR) 05/02/21 05/02/21 05/02/21 04:55 04:55 04:55 WBC MCHC RDW 16.1 H Lymph % (Auto) Lymph # (Auto) Seg Neutrophils % Seg Neuts % (Manual) Seg Neutrophils # Seg Neutrophils # Man Lymphocytes # (Manual) D-Dimer 1401.08 H ABG pH POC ABG pO2 ABG pO2 ABG O2 Saturation ABG Oxyhemoglobin ABG Sodium ABG Chloride ABG Glucose Oxyhemoglobin Carboxyhemoglobin Sodium 131 L Potassium Chloride 95.5 L Carbon Dioxide BUN 20 H Creatinine 0.3 L Glucose 288 H POC Glucose Hemoglobin A1c Ferritin AST ALT Alkaline Phosphatase Lactate Dehydrogenase C-Reactive Protein Total Protein 6.0 L Albumin 3.1 L Arterial Blood Glucose Coronavirus (PCR) 05/02/21 05/02/21 05/02/21 07:53 11:45 15:25 WBC MCHC RDW Lymph % (Auto) Lymph # (Auto) Seg Neutrophils % Seg Neuts % (Manual) Seg Neutrophils # Seg Neutrophils # Man Lymphocytes # (Manual) D-Dimer ABG pH POC ABG pO2 ABG pO2 ABG O2 Saturation ABG Oxyhemoglobin ABG Sodium ABG Chloride ABG Glucose Oxyhemoglobin Carboxyhemoglobin Sodium Potassium Chloride Carbon Dioxide BUN Creatinine Glucose POC Glucose 180 H 228 H 275 H Hemoglobin A1c Ferritin AST ALT Alkaline Phosphatase Lactate Dehydrogenase C-Reactive Protein Total Protein Albumin Arterial Blood Glucose Coronavirus (PCR) 05/02/21 05/03/21 05/03/21 22:56 04:30 04:49 WBC MCHC RDW Lymph % (Auto) Lymph # (Auto) Seg Neutrophils % Seg Neuts % (Manual) Seg Neutrophils # Seg Neutrophils # Man Lymphocytes # (Manual) D-Dimer ABG pH 7.229 L POC ABG pO2 65.3 L ABG pO2 ABG O2 Saturation ABG Oxyhemoglobin 87.8 L ABG Sodium 133.0 L ABG Chloride 97.0 L ABG Glucose 403 H Oxyhemoglobin Carboxyhemoglobin Sodium 130 L Potassium Chloride 94.9 L Carbon Dioxide BUN 20 H Creatinine 0.5 L D Glucose 359 H POC Glucose 293 H Hemoglobin A1c Ferritin AST 54 H ALT 75 H Alkaline Phosphatase 138 H Lactate Dehydrogenase C-Reactive Protein Total Protein Albumin 3.6 L Arterial Blood Glucose 403 H Coronavirus (PCR) 05/03/21 05/03/21 05/03/21 05:27 11:26 17:57 WBC MCHC RDW Lymph % (Auto) Lymph # (Auto) Seg Neutrophils % Seg Neuts % (Manual) Seg Neutrophils # Seg Neutrophils # Man Lymphocytes # (Manual) D-Dimer ABG pH POC ABG pO2 ABG pO2 ABG O2 Saturation ABG Oxyhemoglobin ABG Sodium ABG Chloride ABG Glucose Oxyhemoglobin Carboxyhemoglobin Sodium Potassium Chloride Carbon Dioxide BUN Creatinine Glucose POC Glucose 361 H 297 H 226 H Hemoglobin A1c Ferritin AST ALT Alkaline Phosphatase Lactate Dehydrogenase C-Reactive Protein Total Protein Albumin Arterial Blood Glucose Coronavirus (PCR) 05/03/21 05/04/21 05/04/21 23:12 05:12 07:30 WBC MCHC RDW Lymph % (Auto) Lymph # (Auto) Seg Neutrophils % Seg Neuts % (Manual) Seg Neutrophils # Seg Neutrophils # Man Lymphocytes # (Manual) D-Dimer ABG pH POC ABG pO2 ABG pO2 ABG O2 Saturation ABG Oxyhemoglobin ABG Sodium ABG Chloride ABG Glucose Oxyhemoglobin Carboxyhemoglobin Sodium Potassium Chloride Carbon Dioxide BUN Creatinine Glucose POC Glucose 282 H 285 H 254 H Hemoglobin A1c Ferritin AST ALT Alkaline Phosphatase Lactate Dehydrogenase C-Reactive Protein Total Protein Albumin Arterial Blood Glucose Coronavirus (PCR) 05/04/21 05/04/21 05/04/21 08:58 11:45 16:07 WBC MCHC RDW Lymph % (Auto) Lymph # (Auto) Seg Neutrophils % Seg Neuts % (Manual) Seg Neutrophils # Seg Neutrophils # Man Lymphocytes # (Manual) D-Dimer ABG pH POC ABG pO2 ABG pO2 ABG O2 Saturation ABG Oxyhemoglobin ABG Sodium ABG Chloride ABG Glucose Oxyhemoglobin Carboxyhemoglobin Sodium 134 L Potassium Chloride Carbon Dioxide BUN 20 H Creatinine 0.3 L Glucose 267 H POC Glucose 244 H 297 H Hemoglobin A1c Ferritin AST ALT Alkaline Phosphatase Lactate Dehydrogenase C-Reactive Protein Total Protein 6.0 L Albumin 3.2 L Arterial Blood Glucose Coronavirus (PCR) 05/04/21 05/05/21 05/05/21 23:32 05:00 05:13 WBC MCHC RDW Lymph % (Auto) Lymph # (Auto) Seg Neutrophils % Seg Neuts % (Manual) Seg Neutrophils # Seg Neutrophils # Man Lymphocytes # (Manual) D-Dimer ABG pH POC ABG pO2 ABG pO2 ABG O2 Saturation ABG Oxyhemoglobin ABG Sodium ABG Chloride ABG Glucose Oxyhemoglobin Carboxyhemoglobin Sodium 132 L Potassium Chloride 96.4 L Carbon Dioxide BUN 22 H Creatinine 0.3 L Glucose 228 H POC Glucose 154 H 260 H Hemoglobin A1c Ferritin AST ALT 67 H Alkaline Phosphatase Lactate Dehydrogenase C-Reactive Protein Total Protein 6.1 L Albumin 3.2 L Arterial Blood Glucose Coronavirus (PCR) 05/05/21 05/05/21 05/05/21 11:32 17:49 23:07 WBC MCHC RDW Lymph % (Auto) Lymph # (Auto) Seg Neutrophils % Seg Neuts % (Manual) Seg Neutrophils # Seg Neutrophils # Man Lymphocytes # (Manual) D-Dimer ABG pH POC ABG pO2 ABG pO2 ABG O2 Saturation ABG Oxyhemoglobin ABG Sodium ABG Chloride ABG Glucose Oxyhemoglobin Carboxyhemoglobin Sodium Potassium Chloride Carbon Dioxide BUN Creatinine Glucose POC Glucose 279 H 308 H 213 H Hemoglobin A1c Ferritin AST ALT Alkaline Phosphatase Lactate Dehydrogenase C-Reactive Protein Total Protein Albumin Arterial Blood Glucose Coronavirus (PCR) 05/06/21 05/06/21 05/06/21 05:00 05:00 05:20 WBC MCHC RDW 16.8 H Lymph % (Auto) Lymph # (Auto) Seg Neutrophils % Seg Neuts % (Manual) 99.0 H Seg Neutrophils # Seg Neutrophils # Man 10.9 H Lymphocytes # (Manual) 0.0 L D-Dimer ABG pH POC ABG pO2 ABG pO2 ABG O2 Saturation ABG Oxyhemoglobin ABG Sodium ABG Chloride ABG Glucose Oxyhemoglobin Carboxyhemoglobin Sodium 133 L Potassium Chloride Carbon Dioxide BUN 21 H Creatinine 0.3 L Glucose 259 H POC Glucose 308 H Hemoglobin A1c Ferritin AST ALT Alkaline Phosphatase Lactate Dehydrogenase C-Reactive Protein Total Protein Albumin 3.2 L Arterial Blood Glucose Coronavirus (PCR) 05/06/21 05/06/21 05/06/21 11:24 17:54 21:32 WBC MCHC RDW Lymph % (Auto) Lymph # (Auto) Seg Neutrophils % Seg Neuts % (Manual) Seg Neutrophils # Seg Neutrophils # Man Lymphocytes # (Manual) D-Dimer ABG pH POC ABG pO2 ABG pO2 ABG O2 Saturation ABG Oxyhemoglobin ABG Sodium ABG Chloride ABG Glucose Oxyhemoglobin Carboxyhemoglobin Sodium Potassium Chloride Carbon Dioxide BUN Creatinine Glucose POC Glucose 262 H 124 H 246 H Hemoglobin A1c Ferritin AST ALT Alkaline Phosphatase Lactate Dehydrogenase C-Reactive Protein Total Protein Albumin Arterial Blood Glucose Coronavirus (PCR) 05/06/21 05/07/21 05/07/21 23:10 04:54 04:54 WBC MCHC RDW Lymph % (Auto) Lymph # (Auto) Seg Neutrophils % Seg Neuts % (Manual) Seg Neutrophils # Seg Neutrophils # Man Lymphocytes # (Manual) D-Dimer 1609.28 H ABG pH POC ABG pO2 ABG pO2 ABG O2 Saturation ABG Oxyhemoglobin ABG Sodium ABG Chloride ABG Glucose Oxyhemoglobin Carboxyhemoglobin Sodium 136 L Potassium Chloride Carbon Dioxide BUN 23 H Creatinine 0.3 L Glucose 110 H POC Glucose 249 H Hemoglobin A1c Ferritin AST ALT Alkaline Phosphatase Lactate Dehydrogenase C-Reactive Protein Total Protein 6.2 L Albumin 3.0 L Arterial Blood Glucose Coronavirus (PCR)
[2021-05-07 09:18] LABS: C-Reactive Protein 0.3 mg/dL (0.00-1.30)
[2021-05-07] MEDS: INSULIN GLARGINE 100 UNITS/ML SUB-Q SCH (10:00)
[2021-05-07] MEDS: CHOLECALCIFEROL (VIT D3) 1000 UNIT (25 mcg) TAB PO SCH (10:34)
[2021-05-07] MEDS: DOCUSATE SODIUM 100 MG CAP PO SCH ×2 (10:34→23:31)
[2021-05-07] MEDS: ZINC SULFATE 220 MG CAP PO SCH ×2 (10:34→23:35)
[2021-05-07] MEDS: ASCORBIC ACID 500 MG TAB PO SCH (10:34)
[2021-05-07] MEDS: FAMOTIDINE 20 MG/2 ML INJ IV SCH (10:34)
[2021-05-07] MEDS: POLYETHYLENE GLYCOL 3350 17 GM POWDER PO SCH (10:35)
[2021-05-07] MEDS: HEPARIN 5,000 UNIT/1 ML VIAL SUB-Q SCH (10:35)
[2021-05-07] MEDS: INSULIN REGULAR, HUMAN 100 UNITS/1 ML SUB-Q SCH ×2 (12:00)
[2021-05-07] MEDS: INSULIN LISPRO 100 UNIT/ML SUB-Q SCH ×2 (12:00)
[2021-05-07] MEDS: methylPREDNISolone Sod Succinate 125 MG/2 ML INJ IV SCH ×2 (14:00→23:30)
[2021-05-07] MEDS ORDERED: ENOXAPARIN 100 MG/1 ML INJ SUB-Q SCH (16:00)
[2021-05-07] MEDS: NYSTATIN 500,000 UNIT/5 ML ORAL LIQD PO SCH ×2 (17:22→23:34)
[2021-05-07] MEDS ORDERED: ENOXAPARIN 80 MG/0.8 ML INJ SUB-Q SCH (18:00)
[2021-05-07] MEDS: OFLOXACIN 0.3% OPHTH SOLN 5 ML OU SCH (23:29)
[2021-05-07] MEDS: SENNOSIDES 8.6 MG TAB PO SCH (23:35)
[2021-05-07] MEDS: FAMOTIDINE 20 MG TAB PO SCH (23:35)
[2021-05-08] MEDS: methylPREDNISolone Sod Succinate 125 MG/2 ML INJ IV SCH ×4 (00:52→21:53)
[2021-05-08] MEDS: INSULIN LISPRO 100 UNIT/ML SUB-Q SCH ×6 (01:19→17:24)
[2021-05-08] MEDS: INSULIN REGULAR, HUMAN 100 UNITS/1 ML SUB-Q SCH ×5 (01:20→17:25)
[2021-05-08] MEDS: INSULIN GLARGINE 100 UNITS/ML SUB-Q SCH ×3 (01:41→22:00)
[2021-05-08] MEDS: ENOXAPARIN 80 MG/0.8 ML INJ SUB-Q SCH (07:02)
--- NOTE | 2021-05-08 08:04 | Progress Note ---
Assessment and Plan This is a 50-year-old female with GERD, obesity, HLD who presented to emergency department on 04/16 with complaints of "I cannot breathe" stating that she experienced subjective fever, shortness of breath, malaise, body aches, and dry cough over the past week via EMS. In the emergency department patient was found to have a pulse ox of 86% on room air with exertion. CXR revealed bilateral pneumonia. Patient was admitted to the hospital service to the floor with acute hypoxic respiratory failure and because of COVID-19 PUI. Of note patient is unvaccinated for coronavirus. Now subsequently transferred to medical floor from [facility].. Assessment and plan: NEURO- acute pain; anxiety -PRN tylenol -S/p dexamethasone for comfort -Follows commands and RAY -PRN pain meds -Patient is [place]-speaking -Right eye- viral conjunctivitis vs subconjunctival hemorrhage continue to monitor started on ofloxacin ou x 5 days artificial tears has not provided relief Discussed with daughter regarding eyedrops. She states that she will look into finding eyedrops that patient takes at home. -Family updated on plan of care discussed with daughter over phone. CV- ST -SR-ST -S/p pressors now discontinued -MAP goal 65 -Pressure monitor per protocol Resp- acute hypoxic resp failure due to covid19 -S/p BiPAP, now discontinued -Currently on high per nasal cannula at flow rate 40 L/min, FiO2 90% -See RT notes for titration -Albuterol as needed -Pulmonary hygiene -Pulmonology following CTA chest ordered, patient could not tolerate today will reattempt tomorrow. GI- risk for protein gisella malnutrition given inc metabolic demand with resp insuf ficiency -TPN earlier in hospital admission due to BiPAP however now patient is tolerat ing p.o. -Patient on a GI soft diet with aspiration precautions -Nutrition following -Bowel regimen: Colace, senna, MiraLAX -PPI - volume overload; hyponatremia -Last 24 hours -125 -Trend BMP -Replace electrolytes as needed -Monitor intake and output Heme- coagulopathy of covid; on AC -Subcu heparin -Trend CBC -Transfuse for hemoglobin less than 7 -Bilateral lower extremity Doppler ultrasounds negative for DVT ; no CTA or VQ scan to rule out PE ID-covid19 pna; sepsis; viral conjunctivitis right eye: Oral candidiasis -zinc/vitC/D -methylpred 40m every 8; wean as appropriate -Infectious disease consulted, patient recommendations -S/p Actemra and remdesivir -Trend temperature and WBC curve -Follow culture data -Right eye conjunctival redness-> ofloxacin x 5 d. Will obtain eyedrop info daughter that patient takes at home. Nystatin solution ordered. Endo- hyperglycemia; obesity -glargine HS -SSI AC/HS -Avoid hypoglycemia Hospital course to date: 04/17: Patient seen and examined, still uncomfortable with Hypoxic respiratory failure and on oxygen, will continue to steroids therapy, start patient on Remdesivir, ID consulted, Pulmonary consult placed. 04/18: Patient seen and examined, she is currently being changed to High flow NC due to worsening HYPOXIA, will transfer to IMCU, Pulmonary and ID following. Will also give a dose of Lasix today. Monitor Inflammatory markers. 04/19: Patient seen and examined still on high flow due to hypoxia. Appears a bit more comfortable today than yesterday. Cough has decreased in frequency. We will continue high dose Dexameathasone to complete 10 days. continue on Remdesivir 200 mg IV q day x 1 followed by 100 mg IV q day x 4 days -Obtain q48-72h inflammatory markers - ferritin, Ddimer, CRP, LDH Will also give lasix daily for the next 3 days and monitor renal function. Family updated. Continue prone positioning as tolerated 04/20: Patient has some desaturation episodes yesterday was placed on BiPAP. Discussed with ICU team for bed availability for patient to be transferred up. Continue prone position as tolerated. 04/21: Patient remains with profound hypoxia secondary to COVID pneumonia. -Continue steroids -Continue remedesir -S/P Actmera 04/22: Patient remains on steroids and remdesivir. ABG shows persistent hypoxia. We will continue current management additional trial of Lasix for the next few days to see if any improvement. Monitor inflammatory markers as needed. Prognosis is guarded remains on high flow 04/23; patient was treated with remdesivir and Actemra. Continue steroid. Patibobby nt's prognosis is guarded. 04/24; patient is on steroid. Patient is currently on BiPAP. Prognosis is guarded. Pulmonary is following. Patient was given Lasix and Ativan. 04/25; continue steroid. Patient was on 40 L of high flow oxygen with saturation was 88%. Pulmonary is following. Prognosis is guarded. Patient was given lasix and ativan. 04/26; patient is on BiPAP and Precedex. Prognosis is guarded. 04/27; patient is on BiPAP and Precedex. Patient will finish steroid today and will start on Solu-Medrol tomorrow. Prognosis is guarded. Blood pressure is better today. Hold Lasix. 04/28 patient is on 100 Fio2 via BIPAP. moderately dyspneic, pulmonary note reviewed, lab results reviewed 04/29 no acute events- see systems review above 04/30 no acute events overnight - on airvo today- TPN started -see systems review above 05-01 no acute events overnight- tolerating airvo- see systems review above - no acute events overnight; tolerating airvo this AM- see systems review a carlos alberto 05/03: Patient has shown remarkable improvement, weaned down to 3 L and satting 95%. Will attempt to walk test today in anticipation for discharge tomorrow. Discussed with PT team to walk the patient today also. 05/04: Patient appears to have had a decline he was down to 3 L satting 95% with anticipation for discharge today but desatted down to 85% on room air and only 88% on 5 L he is now back at 8 L. I encourage incentive spirometer. While he is on Xarelto and has completed the severe steroids which was subsequently changed to Solu-Medrol I will go ahead and order a CTA to make sure that there is not a failure of Xarelto. We will continue to wean as tolerated discussed with nursing staff at bedside. 05/05/21 Patient is on 40 L of oxygen with 80% FiO2. Patient is encouraged to turn to the side more frequently. Patient is denied any shortness of breath and coughing. No other complaints. Follow the CT scan of the chest. Status post remdesivir and Actemra.Solu-Medrol 40 mg IV every 8 hours. Continue current management. Pulmonary follow-up. 05/06: Patient remains on high flow nasal cannula but states that she feels slightly better with the help of translation from her cousin Aspen. Patient is still awaiting a bed on the floor. Patient diet is being tolerated now so we will stop TPN will be stopped tonight. 05/07/2021: Patient remains on 40 L/min oxygen at 90% FiO2. Attempt made for CTA chest to rule out pulmonary embolism however patient desatted while at CT. Study was aborted, will reattempt again tomorrow. will follow along with renetta bertrand. Discussed/updated patient and patient's daughter over phone regarding any active clinical issues. Patient only complaint is oral pain from oral candidiasis noted on exam. Nystatin oral solution ordered. Daughter also voiced concern over patient eye drops which she stated that patient needed to restart from home. However she did not remember name of drops. advised daughter to call our hospital with drop name and dosing and we will restart. 05/08/2021: Started anticoagulation with Lovenox yesterday. Awaiting CTA chest completion. Will attempt to de-escalate oxygen as patient tolerates Subjective Date of service: 05/08/21 Principal diagnosis: Covid-19 Interval history: No overnight events. No acute complaints on encounter. Still requiring high flow nasal cannula. Objective - Exam Narrative Exam: Constitutional: no acute distress, alert, on hi flow nasal cannula Eyes: non-icteric, right eye erythematous ENT: dry, patchy white plaques noted Neck: supple Effort: normal Ascultation: Bilateral: diminished breath sounds Cardiovascular: regular rate and rhythm Gastrointestinal: normoactive bowel sounds, soft, non-tender, non-distended Integumentary: normal Extremities: no cyanosis, no edema, pink and warm Neurologic: normal mental status, non-focal exam, pupils equal and round, CN II- XII normal Psychiatric: mood appropriate, affect normal - Constitutional Vitals: Vital Signs - 12hr 05/07/21 05/07/21 05/08/21 21:50 22:42 04:33 Temperature 98.2 F 97.8 F Pulse Rate 91 H 86 Respiratory 20 20 Rate Blood Pressure 112/70 Blood Pressure 119/64 [Left] O2 Sat by Pulse 99 99 90 Oximetry - Labs CBC & Chem 7: 05/06/21 05:00 05/07/21 04:54 Labs: Abnormal lab results 05/07/21 05/07/21 05/07/21 Range/Units 04:54 04:54 11:41 POC Glucose 118 H (70-105) mg/dL Ferritin 296.1 H (10.0-200.0) ng/mL Lactate Dehydrogenase 724 H (91-180) units/L 05/07/21 05/07/21 05/08/21 Range/Units 16:43 22:34 06:44 POC Glucose 159 H 233 H 235 H (70-105) mg/dL Ferritin (10.0-200.0) ng/mL Lactate Dehydrogenase (91-180) units/L 05/08/21 Range/Units 07:49 POC Glucose 219 H (70-105) mg/dL Ferritin (10.0-200.0) ng/mL Lactate Dehydrogenase (91-180) units/L
[2021-05-08] MEDS: POLYETHYLENE GLYCOL 3350 17 GM POWDER PO SCH (12:08)
[2021-05-08] MEDS: NYSTATIN 500,000 UNIT/5 ML ORAL LIQD PO SCH ×4 (12:09→21:53)
[2021-05-08] MEDS: ZINC SULFATE 220 MG CAP PO SCH ×2 (12:09→21:53)
[2021-05-08] MEDS: FAMOTIDINE 20 MG TAB PO SCH ×2 (12:09→21:53)
[2021-05-08] MEDS: DOCUSATE SODIUM 100 MG CAP PO SCH ×2 (12:09→21:53)
[2021-05-08] MEDS: CHOLECALCIFEROL (VIT D3) 1000 UNIT (25 mcg) TAB PO SCH (12:12)
[2021-05-08] MEDS: ASCORBIC ACID 500 MG TAB PO SCH (12:12)
--- NOTE | 2021-05-08 16:50 | Progress Note ---
Assessment and Plan 50 y/o female with acute respiratory failure secondary to COVID19 pneumonia. 05/08/21: Continue anticoagulation and steroids. Prone if possible. Anxiety control. No objection to CTA if this can happen. Very very guarded prognosis. 05/07/21: Spoke with IMS, not opposed to full dose anticoagulation. If patient goes back on NRB HFNC combo may need to consider restarting PPN again. Encourage proning. Guarded prognosis. 05/06/21: Continue to wean FiO2 and flow for sats >88%. Tolerating diet now so will stop PPN. Continue anxiety control. Continue IV steroids. Would not object to transfer to [facility] if bed available. Not sure why she was titrated back up to 100% from 85 as all sats documented in the RT's notes were acceptable. Same for under vital signs as well. 05/03/21: Set back last night from yesterday. Continue bipap therapy for now and attempt HFNC maybe later this afternoon. Continue to use PRN ativan but may need to schedule as she likely took off mask from anxiety. Continue IV steroids. Hold on transfer to [facility] Floor. 05/02/21: Continue to wean FiO2 as tolerated for sats >88%. Will continue bipap at night. Patient has no funding so not a candidate for LTACH. Given that she has been stable and not requiring the combo of HFNC and NRB, will consider moving to [facility] floor. 05/01/21: Continue to wean FiO2 for sats >88%. A sat of 90 is more than acceptable and oxygen should not be increased for this unless patient desats and remains at a sat lower than 88. Bipap at night to give some form of relief and HFNC during the day. Currently on just this alone which is improvement. Ok wi th daily diuresis but must monitor renal function and BP closely. She was over diuresed last week and we ended up giving fluid back. Prognosis remains guarded. 04/30/21: Will start CLinimix today for nutritional support, without electrolytes. Check labs in am. Prone if able. Continue precedx for anxiety. Very very guarded prognosis. Attempting our best to not intubate. 04/29/21: Continue precedex. Continue IV solumedrol. Prone if able. Guarded prognosis. 04/28/21: Continue Precedex. Picc team attempting to place line now. Stable on Bipap. Ordered steroids IV solumedrol to start today. Prognosis remains guarded, still at very high risk for intubation. 04/27/21: Hypotension improving/improved. Hold on any further lasix dosing. Continue precedex to help with anxeity. later today please attempt HFNC with NRB if needed. Attempt to feed if possible. Steroids end today, please order solumedrol 40q8 to start tomorrow (04/28/21). guarded prognosis. 04/26/21: Hypotension today, most likely from precedex use and diuresis that I did the last several days. Will bolus again today. Consider midodrine if BP does not respond. 04/25/21: Lasix again today. Keep PRN ativan for now. Hold on precedex for now. Guarded prognosis. Labs ordered for tomorrow. 04/24/21: Lasix today. Will also start patient on low dose PRN ativan. If this does not help will then try precedex. Guarded prognosis. 04/23/21: Prone as tolerated. No lasix today. Continue decadron. Guarded prognosis. High risk for intubation and high mortality with intubation. 04/19/21: Prone as tolerated during the day and sleep prone at night. Continue IV remdesivir and steroids. Did get actemra. Guarded prognosis. 1. Daily net negative state 2. Prone if possible 3. IV remdesivir. 4. Should be a candidate for Actemra 5. IV steroids 6. Guarded Prognosis Subjective Date of service: 05/08/21 Principal diagnosis: Covid-19 Interval history: Awaiting CTA, now on HFNC and NRB combo again. Last documented sat was 95% Objective Vital Signs - 12hr 05/08/21 05/08/21 05/08/21 11:09 11:32 15:35 Pulse Rate 99 H O2 Sat by Pulse 95 96 95 Oximetry Constitutional: no acute distress, alert Eyes: non-icteric ENT: oropharynx moist Neck: supple Effort: normal Ascultation: Bilateral: diminished breath sounds Cardiovascular: regular rate and rhythm Gastrointestinal: normoactive bowel sounds, soft, non-tender, non-distended Integumentary: normal Extremities: no cyanosis, no edema, pink and warm Neurologic: normal mental status, non-focal exam, pupils equal and round, CN II- XII normal Psychiatric: mood appropriate, affect normal CBC and BMP: 05/06/21 05:00 05/07/21 04:54 ABG, PT/INR, D-dimer: ABG ABG pH 7.229 (7.320-7.450) L 05/03/21 04:49 POC ABG pCO2 45.4 mmHg (32.0-48.0) 05/03/21 04:49 ABG pCO2 42.2 mm Hg 04/29/21 14:23 POC ABG pO2 65.3 mmHg (83-108) L 05/03/21 04:49 ABG pO2 52.6 mm Hg (80.0-90.0) L 04/29/21 14:23 POC ABG HCO3 18.5 05/03/21 04:49 ABG O2 Saturation 88.4 (0-100) 05/03/21 04:49 PT/INR, D-dimer D-Dimer 1609.28 ng/mlDDU (0-234) H 05/07/21 04:54 Abnormal lab findings: Abnormal Labs 04/16/21 04/16/21 04/16/21 11:42 11:42 11:42 WBC MCHC RDW 16.1 H Lymph % (Auto) 7.8 L Lymph # (Auto) 0.8 L Seg Neutrophils % 87.7 H Seg Neuts % (Manual) Seg Neutrophils # 8.5 H Seg Neutrophils # Man Lymphocytes # (Manual) D-Dimer 338.70 H ABG pH POC ABG pO2 ABG pO2 ABG O2 Saturation ABG Oxyhemoglobin ABG Sodium ABG Chloride ABG Glucose Oxyhemoglobin Carboxyhemoglobin Sodium Potassium Chloride Carbon Dioxide BUN Creatinine Glucose 194 H POC Glucose Hemoglobin A1c Ferritin AST ALT Alkaline Phosphatase Lactate Dehydrogenase C-Reactive Protein Total Protein 8.4 H Albumin 3.8 L Arterial Blood Glucose Coronavirus (PCR) 04/16/21 04/16/21 04/17/21 11:42 11:42 03:50 WBC MCHC RDW 16.0 H Lymph % (Auto) 7.7 L Lymph # (Auto) 0.6 L Seg Neutrophils % 89.8 H Seg Neuts % (Manual) Seg Neutrophils # Seg Neutrophils # Man Lymphocytes # (Manual) D-Dimer ABG pH POC ABG pO2 ABG pO2 ABG O2 Saturation ABG Oxyhemoglobin ABG Sodium ABG Chloride ABG Glucose Oxyhemoglobin Carboxyhemoglobin Sodium Potassium Chloride Carbon Dioxide BUN Creatinine Glucose 195 H POC Glucose Hemoglobin A1c Ferritin 254.3 H AST ALT Alkaline Phosphatase Lactate Dehydrogenase 359 H C-Reactive Protein 15.20 H Total Protein Albumin Arterial Blood Glucose Coronavirus (PCR) 04/17/21 04/17/21 04/17/21 03:50 08:26 08:26 WBC MCHC RDW Lymph % (Auto) Lymph # (Auto) Seg Neutrophils % Seg Neuts % (Manual) Seg Neutrophils # Seg Neutrophils # Man Lymphocytes # (Manual) D-Dimer 262.48 H ABG pH POC ABG pO2 ABG pO2 ABG O2 Saturation ABG Oxyhemoglobin ABG Sodium ABG Chloride ABG Glucose Oxyhemoglobin Carboxyhemoglobin Sodium Potassium Chloride Carbon Dioxide BUN 20 H Creatinine 0.5 L Glucose 249 H 225 H POC Glucose Hemoglobin A1c Ferritin AST ALT Alkaline Phosphatase Lactate Dehydrogenase 338 H C-Reactive Protein 17.20 H Total Protein Albumin 3.2 L Arterial Blood Glucose Coronavirus (PCR) 04/17/21 04/17/21 04/17/21 08:26 15:04 Unknown WBC MCHC RDW Lymph % (Auto) Lymph # (Auto) Seg Neutrophils % Seg Neuts % (Manual) Seg Neutrophils # Seg Neutrophils # Man Lymphocytes # (Manual) D-Dimer ABG pH POC ABG pO2 ABG pO2 ABG O2 Saturation ABG Oxyhemoglobin ABG Sodium ABG Chloride ABG Glucose Oxyhemoglobin Carboxyhemoglobin Sodium Potassium Chloride Carbon Dioxide BUN 20 H Creatinine 0.5 L Glucose 246 H POC Glucose Hemoglobin A1c Ferritin 392.0 H AST ALT Alkaline Phosphatase Lactate Dehydrogenase C-Reactive Protein Total Protein 8.3 H Albumin 3.1 L Arterial Blood Glucose Coronavirus (PCR) Positive A 04/18/21 04/18/21 04/18/21 05:06 05:06 07:36 WBC 11.6 H MCHC RDW 16.1 H Lymph % (Auto) Lymph # (Auto) Seg Neutrophils % Seg Neuts % (Manual) Seg Neutrophils # Seg Neutrophils # Man Lymphocytes # (Manual) D-Dimer ABG pH POC ABG pO2 ABG pO2 ABG O2 Saturation ABG Oxyhemoglobin ABG Sodium ABG Chloride ABG Glucose Oxyhemoglobin Carboxyhemoglobin Sodium Potassium 5.2 H Chloride Carbon Dioxide BUN 22 H Creatinine 0.5 L Glucose 315 H POC Glucose Hemoglobin A1c 8.5 H Ferritin AST ALT Alkaline Phosphatase Lactate Dehydrogenase C-Reactive Protein Total Protein Albumin 3.3 L Arterial Blood Glucose Coronavirus (PCR) 04/18/21 04/18/21 04/18/21 11:59 16:43 23:24 WBC MCHC RDW Lymph % (Auto) Lymph # (Auto) Seg Neutrophils % Seg Neuts % (Manual) Seg Neutrophils # Seg Neutrophils # Man Lymphocytes # (Manual) D-Dimer ABG pH POC ABG pO2 ABG pO2 ABG O2 Saturation ABG Oxyhemoglobin ABG Sodium ABG Chloride ABG Glucose Oxyhemoglobin Carboxyhemoglobin Sodium Potassium Chloride Carbon Dioxide BUN Creatinine Glucose POC Glucose 284 H 273 H 290 H Hemoglobin A1c Ferritin AST ALT Alkaline Phosphatase Lactate Dehydrogenase C-Reactive Protein Total Protein Albumin Arterial Blood Glucose Coronavirus (PCR) 04/19/21 04/19/21 04/19/21 04:19 04:19 08:10 WBC MCHC RDW 15.7 H Lymph % (Auto) Lymph # (Auto) Seg Neutrophils % Seg Neuts % (Manual) Seg Neutrophils # Seg Neutrophils # Man Lymphocytes # (Manual) D-Dimer ABG pH POC ABG pO2 ABG pO2 ABG O2 Saturation ABG Oxyhemoglobin ABG Sodium ABG Chloride ABG Glucose Oxyhemoglobin Carboxyhemoglobin Sodium Potassium Chloride Carbon Dioxide BUN 27 H Creatinine 0.4 L Glucose 184 H POC Glucose 194 H Hemoglobin A1c Ferritin AST ALT Alkaline Phosphatase Lactate Dehydrogenase C-Reactive Protein Total Protein Albumin 3.1 L Arterial Blood Glucose Coronavirus (PCR) 04/19/21 04/19/21 04/19/21 11:38 16:25 22:04 WBC MCHC RDW Lymph % (Auto) Lymph # (Auto) Seg Neutrophils % Seg Neuts % (Manual) Seg Neutrophils # Seg Neutrophils # Man Lymphocytes # (Manual) D-Dimer ABG pH POC ABG pO2 ABG pO2 ABG O2 Saturation ABG Oxyhemoglobin ABG Sodium ABG Chloride ABG Glucose Oxyhemoglobin Carboxyhemoglobin Sodium Potassium Chloride Carbon Dioxide BUN Creatinine Glucose POC Glucose 224 H 297 H 251 H Hemoglobin A1c Ferritin AST ALT Alkaline Phosphatase Lactate Dehydrogenase C-Reactive Protein Total Protein Albumin Arterial Blood Glucose Coronavirus (PCR) 04/20/21 04/20/21 04/20/21 05:28 08:43 16:21 WBC MCHC RDW Lymph % (Auto) Lymph # (Auto) Seg Neutrophils % Seg Neuts % (Manual) Seg Neutrophils # Seg Neutrophils # Man Lymphocytes # (Manual) D-Dimer ABG pH POC ABG pO2 ABG pO2 ABG O2 Saturation ABG Oxyhemoglobin ABG Sodium ABG Chloride ABG Glucose Oxyhemoglobin Carboxyhemoglobin Sodium Potassium Chloride Carbon Dioxide BUN 27 H Creatinine Glucose 192 H POC Glucose 173 H 253 H Hemoglobin A1c Ferritin AST ALT Alkaline Phosphatase Lactate Dehydrogenase C-Reactive Protein Total Protein Albumin 3.0 L Arterial Blood Glucose Coronavirus (PCR) 04/21/21 04/21/21 04/21/21 07:58 12:05 16:08 WBC MCHC RDW Lymph % (Auto) Lymph # (Auto) Seg Neutrophils % Seg Neuts % (Manual) Seg Neutrophils # Seg Neutrophils # Man Lymphocytes # (Manual) D-Dimer ABG pH POC ABG pO2 ABG pO2 ABG O2 Saturation ABG Oxyhemoglobin ABG Sodium ABG Chloride ABG Glucose Oxyhemoglobin Carboxyhemoglobin Sodium Potassium Chloride Carbon Dioxide BUN Creatinine Glucose POC Glucose 140 H 252 H 214 H Hemoglobin A1c Ferritin AST ALT Alkaline Phosphatase Lactate Dehydrogenase C-Reactive Protein Total Protein Albumin Arterial Blood Glucose Coronavirus (PCR) 04/21/21 04/22/21 04/22/21 21:42 08:37 12:01 WBC MCHC RDW Lymph % (Auto) Lymph # (Auto) Seg Neutrophils % Seg Neuts % (Manual) Seg Neutrophils # Seg Neutrophils # Man Lymphocytes # (Manual) D-Dimer ABG pH 7.457 H POC ABG pO2 49.4 L ABG pO2 ABG O2 Saturation ABG Oxyhemoglobin 85.6 L ABG Sodium ABG Chloride ABG Glucose 121 H Oxyhemoglobin Carboxyhemoglobin 0.3 L Sodium Potassium Chloride Carbon Dioxide BUN Creatinine Glucose POC Glucose 162 H 227 H Hemoglobin A1c Ferritin AST ALT Alkaline Phosphatase Lactate Dehydrogenase C-Reactive Protein Total Protein Albumin Arterial Blood Glucose 121 H Coronavirus (PCR) 04/22/21 04/22/21 04/23/21 16:26 22:23 04:52 WBC MCHC RDW 15.7 H Lymph % (Auto) Lymph # (Auto) Seg Neutrophils % Seg Neuts % (Manual) Seg Neutrophils # Seg Neutrophils # Man Lymphocytes # (Manual) D-Dimer ABG pH POC ABG pO2 ABG pO2 ABG O2 Saturation ABG Oxyhemoglobin ABG Sodium ABG Chloride ABG Glucose Oxyhemoglobin Carboxyhemoglobin Sodium Potassium Chloride Carbon Dioxide BUN Creatinine Glucose POC Glucose 200 H 136 H Hemoglobin A1c Ferritin AST ALT Alkaline Phosphatase Lactate Dehydrogenase C-Reactive Protein Total Protein Albumin Arterial Blood Glucose Coronavirus (PCR) 04/23/21 04/23/21 04/23/21 04:52 12:06 17:41 WBC MCHC RDW Lymph % (Auto) Lymph # (Auto) Seg Neutrophils % Seg Neuts % (Manual) Seg Neutrophils # Seg Neutrophils # Man Lymphocytes # (Manual) D-Dimer ABG pH POC ABG pO2 ABG pO2 ABG O2 Saturation ABG Oxyhemoglobin ABG Sodium ABG Chloride ABG Glucose Oxyhemoglobin Carboxyhemoglobin Sodium 136 L Potassium Chloride 97.7 L Carbon Dioxide BUN 23 H Creatinine Glucose 101 H POC Glucose 202 H 169 H Hemoglobin A1c Ferritin AST 46 H ALT Alkaline Phosphatase Lactate Dehydrogenase C-Reactive Protein Total Protein Albumin 3.3 L Arterial Blood Glucose Coronavirus (PCR) 04/23/21 04/24/21 04/24/21 23:08 05:17 08:38 WBC MCHC RDW Lymph % (Auto) Lymph # (Auto) Seg Neutrophils % Seg Neuts % (Manual) Seg Neutrophils # Seg Neutrophils # Man Lymphocytes # (Manual) D-Dimer ABG pH POC ABG pO2 ABG pO2 ABG O2 Saturation ABG Oxyhemoglobin ABG Sodium ABG Chloride ABG Glucose Oxyhemoglobin Carboxyhemoglobin Sodium Potassium Chloride Carbon Dioxide BUN Creatinine Glucose POC Glucose 111 H 108 H 126 H Hemoglobin A1c Ferritin AST ALT Alkaline Phosphatase Lactate Dehydrogenase C-Reactive Protein Total Protein Albumin Arterial Blood Glucose Coronavirus (PCR) 04/24/21 04/24/21 04/24/21 11:54 17:57 21:23 WBC MCHC RDW Lymph % (Auto) Lymph # (Auto) Seg Neutrophils % Seg Neuts % (Manual) Seg Neutrophils # Seg Neutrophils # Man Lymphocytes # (Manual) D-Dimer ABG pH POC ABG pO2 ABG pO2 ABG O2 Saturation ABG Oxyhemoglobin ABG Sodium ABG Chloride ABG Glucose Oxyhemoglobin Carboxyhemoglobin Sodium Potassium Chloride Carbon Dioxide BUN Creatinine Glucose POC Glucose 147 H 177 H 138 H Hemoglobin A1c Ferritin AST ALT Alkaline Phosphatase Lactate Dehydrogenase C-Reactive Protein Total Protein Albumin Arterial Blood Glucose Coronavirus (PCR) 04/25/21 04/25/21 04/25/21 07:06 11:23 15:43 WBC MCHC RDW Lymph % (Auto) Lymph # (Auto) Seg Neutrophils % Seg Neuts % (Manual) Seg Neutrophils # Seg Neutrophils # Man Lymphocytes # (Manual) D-Dimer ABG pH POC ABG pO2 ABG pO2 ABG O2 Saturation ABG Oxyhemoglobin ABG Sodium ABG Chloride ABG Glucose Oxyhemoglobin Carboxyhemoglobin Sodium Potassium Chloride Carbon Dioxide BUN Creatinine Glucose POC Glucose 147 H 169 H 227 H Hemoglobin A1c Ferritin AST ALT Alkaline Phosphatase Lactate Dehydrogenase C-Reactive Protein Total Protein Albumin Arterial Blood Glucose Coronavirus (PCR) 04/25/21 04/26/21 04/26/21 21:22 02:45 05:15 WBC MCHC RDW Lymph % (Auto) Lymph # (Auto) Seg Neutrophils % Seg Neuts % (Manual) Seg Neutrophils # Seg Neutrophils # Man Lymphocytes # (Manual) D-Dimer ABG pH POC ABG pO2 70.7 L ABG pO2 ABG O2 Saturation ABG Oxyhemoglobin 93.0 L ABG Sodium 132.7 L ABG Chloride ABG Glucose 115 H Oxyhemoglobin Carboxyhemoglobin Sodium Potassium Chloride 95.8 L Carbon Dioxide 32 H BUN 20 H Creatinine Glucose 102 H POC Glucose 196 H Hemoglobin A1c Ferritin AST ALT Alkaline Phosphatase Lactate Dehydrogenase C-Reactive Protein Total Protein Albumin Arterial Blood Glucose 115 H Coronavirus (PCR) 04/26/21 04/26/21 04/26/21 11:49 16:09 21:07 WBC MCHC RDW Lymph % (Auto) Lymph # (Auto) Seg Neutrophils % Seg Neuts % (Manual) Seg Neutrophils # Seg Neutrophils # Man Lymphocytes # (Manual) D-Dimer ABG pH POC ABG pO2 ABG pO2 ABG O2 Saturation ABG Oxyhemoglobin ABG Sodium ABG Chloride ABG Glucose Oxyhemoglobin Carboxyhemoglobin Sodium Potassium Chloride Carbon Dioxide BUN Creatinine Glucose POC Glucose 114 H 188 H 136 H Hemoglobin A1c Ferritin AST ALT Alkaline Phosphatase Lactate Dehydrogenase C-Reactive Protein Total Protein Albumin Arterial Blood Glucose Coronavirus (PCR) 04/27/21 04/27/21 04/28/21 17:34 22:12 08:26 WBC MCHC RDW Lymph % (Auto) Lymph # (Auto) Seg Neutrophils % Seg Neuts % (Manual) Seg Neutrophils # Seg Neutrophils # Man Lymphocytes # (Manual) D-Dimer ABG pH POC ABG pO2 ABG pO2 ABG O2 Saturation ABG Oxyhemoglobin ABG Sodium ABG Chloride ABG Glucose Oxyhemoglobin Carboxyhemoglobin Sodium Potassium Chloride Carbon Dioxide BUN Creatinine Glucose POC Glucose 128 H 159 H 69 L Hemoglobin A1c Ferritin AST ALT Alkaline Phosphatase Lactate Dehydrogenase C-Reactive Protein Total Protein Albumin Arterial Blood Glucose Coronavirus (PCR) 04/28/21 04/28/21 04/29/21 12:22 21:11 06:05 WBC MCHC RDW Lymph % (Auto) Lymph # (Auto) Seg Neutrophils % Seg Neuts % (Manual) Seg Neutrophils # Seg Neutrophils # Man Lymphocytes # (Manual) D-Dimer ABG pH POC ABG pO2 ABG pO2 ABG O2 Saturation ABG Oxyhemoglobin ABG Sodium ABG Chloride ABG Glucose Oxyhemoglobin Carboxyhemoglobin Sodium 132 L Potassium Chloride 94.4 L Carbon Dioxide BUN Creatinine 0.2 L D Glucose 140 H POC Glucose 141 H 171 H Hemoglobin A1c Ferritin AST ALT Alkaline Phosphatase Lactate Dehydrogenase C-Reactive Protein Total Protein Albumin Arterial Blood Glucose Coronavirus (PCR) 04/29/21 04/29/21 04/29/21 06:05 07:24 11:36 WBC MCHC 35 H RDW 15.9 H Lymph % (Auto) Lymph # (Auto) Seg Neutrophils % Seg Neuts % (Manual) Seg Neutrophils # Seg Neutrophils # Man Lymphocytes # (Manual) D-Dimer ABG pH POC ABG pO2 ABG pO2 ABG O2 Saturation ABG Oxyhemoglobin ABG Sodium ABG Chloride ABG Glucose Oxyhemoglobin Carboxyhemoglobin Sodium Potassium Chloride Carbon Dioxide BUN Creatinine Glucose POC Glucose 141 H 220 H Hemoglobin A1c Ferritin AST ALT Alkaline Phosphatase Lactate Dehydrogenase C-Reactive Protein Total Protein Albumin Arterial Blood Glucose Coronavirus (PCR) 04/29/21 04/29/21 04/29/21 14:23 15:30 17:06 WBC MCHC RDW Lymph % (Auto) Lymph # (Auto) Seg Neutrophils % Seg Neuts % (Manual) Seg Neutrophils # Seg Neutrophils # Man Lymphocytes # (Manual) D-Dimer ABG pH POC ABG pO2 ABG pO2 52.6 L ABG O2 Saturation 86.4 L ABG Oxyhemoglobin ABG Sodium ABG Chloride ABG Glucose Oxyhemoglobin 84.6 L Carboxyhemoglobin Sodium Potassium Chloride Carbon Dioxide BUN Creatinine Glucose POC Glucose 173 H 158 H Hemoglobin A1c Ferritin AST ALT Alkaline Phosphatase Lactate Dehydrogenase C-Reactive Protein Total Protein Albumin Arterial Blood Glucose Coronavirus (PCR) 04/29/21 04/30/21 04/30/21 21:27 07:16 08:00 WBC MCHC RDW 16.1 H Lymph % (Auto) Lymph # (Auto) Seg Neutrophils % Seg Neuts % (Manual) Seg Neutrophils # Seg Neutrophils # Man Lymphocytes # (Manual) D-Dimer ABG pH POC ABG pO2 ABG pO2 ABG O2 Saturation ABG Oxyhemoglobin ABG Sodium ABG Chloride ABG Glucose Oxyhemoglobin Carboxyhemoglobin Sodium Potassium Chloride Carbon Dioxide BUN Creatinine Glucose POC Glucose 244 H 175 H Hemoglobin A1c Ferritin AST ALT Alkaline Phosphatase Lactate Dehydrogenase C-Reactive Protein Total Protein Albumin Arterial Blood Glucose Coronavirus (PCR) 04/30/21 04/30/21 04/30/21 08:00 08:00 11:03 WBC MCHC RDW Lymph % (Auto) Lymph # (Auto) Seg Neutrophils % Seg Neuts % (Manual) Seg Neutrophils # Seg Neutrophils # Man Lymphocytes # (Manual) D-Dimer 1796.87 H ABG pH POC ABG pO2 ABG pO2 ABG O2 Saturation ABG Oxyhemoglobin ABG Sodium ABG Chloride ABG Glucose Oxyhemoglobin Carboxyhemoglobin Sodium 135 L Potassium Chloride 96.3 L Carbon Dioxide BUN Creatinine 0.2 L Glucose 153 H POC Glucose 183 H Hemoglobin A1c Ferritin AST 41 H ALT 76 H Alkaline Phosphatase 160 H Lactate Dehydrogenase 522 H C-Reactive Protein Total Protein 6.1 L Albumin 3.1 L Arterial Blood Glucose Coronavirus (PCR) 04/30/21 04/30/21 05/01/21 17:04 22:17 05:39 WBC MCHC RDW Lymph % (Auto) Lymph # (Auto) Seg Neutrophils % Seg Neuts % (Manual) Seg Neutrophils # Seg Neutrophils # Man Lymphocytes # (Manual) D-Dimer ABG pH POC ABG pO2 ABG pO2 ABG O2 Saturation ABG Oxyhemoglobin ABG Sodium ABG Chloride ABG Glucose Oxyhemoglobin Carboxyhemoglobin Sodium 133 L Potassium Chloride 92.1 L Carbon Dioxide BUN 24 H Creatinine 0.4 L D Glucose 269 H POC Glucose 167 H 208 H Hemoglobin A1c Ferritin AST ALT 66 H Alkaline Phosphatase 142 H Lactate Dehydrogenase C-Reactive Protein Total Protein Albumin 3.2 L Arterial Blood Glucose Coronavirus (PCR) 05/01/21 05/01/21 05/01/21 05:39 05:39 07:45 WBC MCHC RDW 16.0 H Lymph % (Auto) Lymph # (Auto) Seg Neutrophils % Seg Neuts % (Manual) Seg Neutrophils # Seg Neutrophils # Man Lymphocytes # (Manual) D-Dimer 3984.95 H ABG pH POC ABG pO2 ABG pO2 ABG O2 Saturation ABG Oxyhemoglobin ABG Sodium ABG Chloride ABG Glucose Oxyhemoglobin Carboxyhemoglobin Sodium Potassium Chloride Carbon Dioxide BUN Creatinine Glucose POC Glucose 229 H Hemoglobin A1c Ferritin AST ALT Alkaline Phosphatase Lactate Dehydrogenase C-Reactive Protein Total Protein Albumin Arterial Blood Glucose Coronavirus (PCR) 05/01/21 05/01/21 05/01/21 12:10 15:46 21:06 WBC MCHC RDW Lymph % (Auto) Lymph # (Auto) Seg Neutrophils % Seg Neuts % (Manual) Seg Neutrophils # Seg Neutrophils # Man Lymphocytes # (Manual) D-Dimer ABG pH POC ABG pO2 ABG pO2 ABG O2 Saturation ABG Oxyhemoglobin ABG Sodium ABG Chloride ABG Glucose Oxyhemoglobin Carboxyhemoglobin Sodium Potassium Chloride Carbon Dioxide BUN Creatinine Glucose POC Glucose 296 H 279 H 232 H Hemoglobin A1c Ferritin AST ALT Alkaline Phosphatase Lactate Dehydrogenase C-Reactive Protein Total Protein Albumin Arterial Blood Glucose Coronavirus (PCR) 05/02/21 05/02/21 05/02/21 04:55 04:55 04:55 WBC MCHC RDW 16.1 H Lymph % (Auto) Lymph # (Auto) Seg Neutrophils % Seg Neuts % (Manual) Seg Neutrophils # Seg Neutrophils # Man Lymphocytes # (Manual) D-Dimer 1401.08 H ABG pH POC ABG pO2 ABG pO2 ABG O2 Saturation ABG Oxyhemoglobin ABG Sodium ABG Chloride ABG Glucose Oxyhemoglobin Carboxyhemoglobin Sodium 131 L Potassium Chloride 95.5 L Carbon Dioxide BUN 20 H Creatinine 0.3 L Glucose 288 H POC Glucose Hemoglobin A1c Ferritin AST ALT Alkaline Phosphatase Lactate Dehydrogenase C-Reactive Protein Total Protein 6.0 L Albumin 3.1 L Arterial Blood Glucose Coronavirus (PCR) 05/02/21 05/02/21 05/02/21 07:53 11:45 15:25 WBC MCHC RDW Lymph % (Auto) Lymph # (Auto) Seg Neutrophils % Seg Neuts % (Manual) Seg Neutrophils # Seg Neutrophils # Man Lymphocytes # (Manual) D-Dimer ABG pH POC ABG pO2 ABG pO2 ABG O2 Saturation ABG Oxyhemoglobin ABG Sodium ABG Chloride ABG Glucose Oxyhemoglobin Carboxyhemoglobin Sodium Potassium Chloride Carbon Dioxide BUN Creatinine Glucose POC Glucose 180 H 228 H 275 H Hemoglobin A1c Ferritin AST ALT Alkaline Phosphatase Lactate Dehydrogenase C-Reactive Protein Total Protein Albumin Arterial Blood Glucose Coronavirus (PCR) 05/02/21 05/03/21 05/03/21 22:56 04:30 04:49 WBC MCHC RDW Lymph % (Auto) Lymph # (Auto) Seg Neutrophils % Seg Neuts % (Manual) Seg Neutrophils # Seg Neutrophils # Man Lymphocytes # (Manual) D-Dimer ABG pH 7.229 L POC ABG pO2 65.3 L ABG pO2 ABG O2 Saturation ABG Oxyhemoglobin 87.8 L ABG Sodium 133.0 L ABG Chloride 97.0 L ABG Glucose 403 H Oxyhemoglobin Carboxyhemoglobin Sodium 130 L Potassium Chloride 94.9 L Carbon Dioxide BUN 20 H Creatinine 0.5 L D Glucose 359 H POC Glucose 293 H Hemoglobin A1c Ferritin AST 54 H ALT 75 H Alkaline Phosphatase 138 H Lactate Dehydrogenase C-Reactive Protein Total Protein Albumin 3.6 L Arterial Blood Glucose 403 H Coronavirus (PCR) 05/03/21 05/03/21 05/03/21 05:27 11:26 17:57 WBC MCHC RDW Lymph % (Auto) Lymph # (Auto) Seg Neutrophils % Seg Neuts % (Manual) Seg Neutrophils # Seg Neutrophils # Man Lymphocytes # (Manual) D-Dimer ABG pH POC ABG pO2 ABG pO2 ABG O2 Saturation ABG Oxyhemoglobin ABG Sodium ABG Chloride ABG Glucose Oxyhemoglobin Carboxyhemoglobin Sodium Potassium Chloride Carbon Dioxide BUN Creatinine Glucose POC Glucose 361 H 297 H 226 H Hemoglobin A1c Ferritin AST ALT Alkaline Phosphatase Lactate Dehydrogenase C-Reactive Protein Total Protein Albumin Arterial Blood Glucose Coronavirus (PCR) 05/03/21 05/04/21 05/04/21 23:12 05:12 07:30 WBC MCHC RDW Lymph % (Auto) Lymph # (Auto) Seg Neutrophils % Seg Neuts % (Manual) Seg Neutrophils # Seg Neutrophils # Man Lymphocytes # (Manual) D-Dimer ABG pH POC ABG pO2 ABG pO2 ABG O2 Saturation ABG Oxyhemoglobin ABG Sodium ABG Chloride ABG Glucose Oxyhemoglobin Carboxyhemoglobin Sodium Potassium Chloride Carbon Dioxide BUN Creatinine Glucose POC Glucose 282 H 285 H 254 H Hemoglobin A1c Ferritin AST ALT Alkaline Phosphatase Lactate Dehydrogenase C-Reactive Protein Total Protein Albumin Arterial Blood Glucose Coronavirus (PCR) 08/05/04/21 05/04/21 08:58 11:45 16:07 WBC MCHC RDW Lymph % (Auto) Lymph # (Auto) Seg Neutrophils % Seg Neuts % (Manual) Seg Neutrophils # Seg Neutrophils # Man Lymphocytes # (Manual) D-Dimer ABG pH POC ABG pO2 ABG pO2 ABG O2 Saturation ABG Oxyhemoglobin ABG Sodium ABG Chloride ABG Glucose Oxyhemoglobin Carboxyhemoglobin Sodium 134 L Potassium Chloride Carbon Dioxide BUN 20 H Creatinine 0.3 L Glucose 267 H POC Glucose 244 H 297 H Hemoglobin A1c Ferritin AST ALT Alkaline Phosphatase Lactate Dehydrogenase C-Reactive Protein Total Protein 6.0 L Albumin 3.2 L Arterial Blood Glucose Coronavirus (PCR) 05/04/21 05/05/21 05/05/21 23:32 05:00 05:13 WBC MCHC RDW Lymph % (Auto) Lymph # (Auto) Seg Neutrophils % Seg Neuts % (Manual) Seg Neutrophils # Seg Neutrophils # Man Lymphocytes # (Manual) D-Dimer ABG pH POC ABG pO2 ABG pO2 ABG O2 Saturation ABG Oxyhemoglobin ABG Sodium ABG Chloride ABG Glucose Oxyhemoglobin Carboxyhemoglobin Sodium 132 L Potassium Chloride 96.4 L Carbon Dioxide BUN 22 H Creatinine 0.3 L Glucose 228 H POC Glucose 154 H 260 H Hemoglobin A1c Ferritin AST ALT 67 H Alkaline Phosphatase Lactate Dehydrogenase C-Reactive Protein Total Protein 6.1 L Albumin 3.2 L Arterial Blood Glucose Coronavirus (PCR) 05/05/21 05/05/21 05/05/21 11:32 17:49 23:07 WBC MCHC RDW Lymph % (Auto) Lymph # (Auto) Seg Neutrophils % Seg Neuts % (Manual) Seg Neutrophils # Seg Neutrophils # Man Lymphocytes # (Manual) D-Dimer ABG pH POC ABG pO2 ABG pO2 ABG O2 Saturation ABG Oxyhemoglobin ABG Sodium ABG Chloride ABG Glucose Oxyhemoglobin Carboxyhemoglobin Sodium Potassium Chloride Carbon Dioxide BUN Creatinine Glucose POC Glucose 279 H 308 H 213 H Hemoglobin A1c Ferritin AST ALT Alkaline Phosphatase Lactate Dehydrogenase C-Reactive Protein Total Protein Albumin Arterial Blood Glucose Coronavirus (PCR) 05/06/21 05/06/21 05/06/21 05:00 05:00 05:20 WBC MCHC RDW 16.8 H Lymph % (Auto) Lymph # (Auto) Seg Neutrophils % Seg Neuts % (Manual) 99.0 H Seg Neutrophils # Seg Neutrophils # Man 10.9 H Lymphocytes # (Manual) 0.0 L D-Dimer ABG pH POC ABG pO2 ABG pO2 ABG O2 Saturation ABG Oxyhemoglobin ABG Sodium ABG Chloride ABG Glucose Oxyhemoglobin Carboxyhemoglobin Sodium 133 L Potassium Chloride Carbon Dioxide BUN 21 H Creatinine 0.3 L Glucose 259 H POC Glucose 308 H Hemoglobin A1c Ferritin AST ALT Alkaline Phosphatase Lactate Dehydrogenase C-Reactive Protein Total Protein Albumin 3.2 L Arterial Blood Glucose Coronavirus (PCR) 05/06/21 05/06/21 05/06/21 11:24 17:54 21:32 WBC MCHC RDW Lymph % (Auto) Lymph # (Auto) Seg Neutrophils % Seg Neuts % (Manual) Seg Neutrophils # Seg Neutrophils # Man Lymphocytes # (Manual) D-Dimer ABG pH POC ABG pO2 ABG pO2 ABG O2 Saturation ABG Oxyhemoglobin ABG Sodium ABG Chloride ABG Glucose Oxyhemoglobin Carboxyhemoglobin Sodium Potassium Chloride Carbon Dioxide BUN Creatinine Glucose POC Glucose 262 H 124 H 246 H Hemoglobin A1c Ferritin AST ALT Alkaline Phosphatase Lactate Dehydrogenase C-Reactive Protein Total Protein Albumin Arterial Blood Glucose Coronavirus (PCR) 05/06/21 05/07/21 05/07/21 23:10 04:54 04:54 WBC MCHC RDW Lymph % (Auto) Lymph # (Auto) Seg Neutrophils % Seg Neuts % (Manual) Seg Neutrophils # Seg Neutrophils # Man Lymphocytes # (Manual) D-Dimer 1609.28 H ABG pH POC ABG pO2 ABG pO2 ABG O2 Saturation ABG Oxyhemoglobin ABG Sodium ABG Chloride ABG Glucose Oxyhemoglobin Carboxyhemoglobin Sodium 136 L Potassium Chloride Carbon Dioxide BUN 23 H Creatinine 0.3 L Glucose 110 H POC Glucose 249 H Hemoglobin A1c Ferritin AST ALT Alkaline Phosphatase Lactate Dehydrogenase C-Reactive Protein Total Protein 6.2 L Albumin 3.0 L Arterial Blood Glucose Coronavirus (PCR) 05/07/21 05/07/21 05/07/21 04:54 04:54 11:41 WBC MCHC RDW Lymph % (Auto) Lymph # (Auto) Seg Neutrophils % Seg Neuts % (Manual) Seg Neutrophils # Seg Neutrophils # Man Lymphocytes # (Manual) D-Dimer ABG pH POC ABG pO2 ABG pO2 ABG O2 Saturation ABG Oxyhemoglobin ABG Sodium ABG Chloride ABG Glucose Oxyhemoglobin Carboxyhemoglobin Sodium Potassium Chloride Carbon Dioxide BUN Creatinine Glucose POC Glucose 118 H Hemoglobin A1c Ferritin 296.1 H AST ALT Alkaline Phosphatase Lactate Dehydrogenase 724 H C-Reactive Protein Total Protein Albumin Arterial Blood Glucose Coronavirus (PCR) 05/07/21 05/07/21 05/08/21 16:43 22:34 06:44 WBC MCHC RDW Lymph % (Auto) Lymph # (Auto) Seg Neutrophils % Seg Neuts % (Manual) Seg Neutrophils # Seg Neutrophils # Man Lymphocytes # (Manual) D-Dimer ABG pH POC ABG pO2 ABG pO2 ABG O2 Saturation ABG Oxyhemoglobin ABG Sodium ABG Chloride ABG Glucose Oxyhemoglobin Carboxyhemoglobin Sodium Potassium Chloride Carbon Dioxide BUN Creatinine Glucose POC Glucose 159 H 233 H 235 H Hemoglobin A1c Ferritin AST ALT Alkaline Phosphatase Lactate Dehydrogenase C-Reactive Protein Total Protein Albumin Arterial Blood Glucose Coronavirus (PCR) 05/08/21 05/08/21 07:49 11:56 WBC MCHC RDW Lymph % (Auto) Lymph # (Auto) Seg Neutrophils % Seg Neuts % (Manual) Seg Neutrophils # Seg Neutrophils # Man Lymphocytes # (Manual) D-Dimer ABG pH POC ABG pO2 ABG pO2 ABG O2 Saturation ABG Oxyhemoglobin ABG Sodium ABG Chloride ABG Glucose Oxyhemoglobin Carboxyhemoglobin Sodium Potassium Chloride Carbon Dioxide BUN Creatinine Glucose POC Glucose 219 H 184 H Hemoglobin A1c Ferritin AST ALT Alkaline Phosphatase Lactate Dehydrogenase C-Reactive Protein Total Protein Albumin Arterial Blood Glucose Coronavirus (PCR)
[2021-05-08] MEDS: SENNOSIDES 8.6 MG TAB PO SCH (21:58)
[2021-05-09] MEDS: INSULIN REGULAR, HUMAN 100 UNITS/1 ML SUB-Q SCH ×4 (02:02→17:53)
[2021-05-09] MEDS: INSULIN LISPRO 100 UNIT/ML SUB-Q SCH ×4 (02:04→17:53)
[2021-05-09] MEDS: ENOXAPARIN 80 MG/0.8 ML INJ SUB-Q SCH ×2 (05:28→12:08)
[2021-05-09] MEDS: methylPREDNISolone Sod Succinate 125 MG/2 ML INJ IV SCH ×2 (05:29→15:38)
[2021-05-09 06:03] LABS: C-Reactive Protein 2.4 mg/dL (0.00-1.30)
--- NOTE | 2021-05-09 07:52 | Progress Note ---
Assessment and Plan This is a 50-year-old female with GERD, obesity, HLD who presented to emergency department on 04/16 with complaints of "I cannot breathe" stating that she experienced subjective fever, shortness of breath, malaise, body aches, and dry cough over the past week via EMS. In the emergency department patient was found to have a pulse ox of 86% on room air with exertion. CXR revealed bilateral pneumonia. Patient was admitted to the hospital service to the floor with acute hypoxic respiratory failure and because of COVID-19 PUI. Of note patient is unvaccinated for coronavirus. Now subsequently transferred to medical floor from [facility].. Assessment and plan: NEURO- acute pain; anxiety -PRN tylenol -S/p dexamethasone for comfort -Follows commands and RAY -PRN pain meds -Patient is Swazi-speaking -Right eye- viral conjunctivitis vs subconjunctival hemorrhage continue to monitor started on ofloxacin ou x 5 days artificial tears has not provided relief Discussed with daughter regarding eyedrops. She states that she will look into finding eyedrops that patient takes at home. -Family updated on plan of care discussed with daughter over phone. CV- ST -SR-ST -S/p pressors now discontinued -MAP goal 65 -Pressure monitor per protocol Resp- acute hypoxic resp failure due to covid19 -S/p BiPAP, now discontinued -Currently on high per nasal cannula at flow rate 40 L/min, FiO2 90% -See RT notes for titration -Albuterol as needed -Pulmonary hygiene -Pulmonology following CTA chest ordered, patient could not tolerate today will reattempt tomorrow. GI- risk for protein gisella malnutrition given inc metabolic demand with resp insuf ficiency -TPN earlier in hospital admission due to BiPAP however now patient is tolerat ing p.o. -Patient on a GI soft diet with aspiration precautions -Nutrition following -Bowel regimen: Colace, senna, MiraLAX -PPI - volume overload; hyponatremia -Last 24 hours -125 -Trend BMP -Replace electrolytes as needed -Monitor intake and output Heme- coagulopathy of covid; on AC -Subcu heparin -Trend CBC -Transfuse for hemoglobin less than 7 -Bilateral lower extremity Doppler ultrasounds negative for DVT ; no CTA or VQ scan to rule out PE ID-covid19 pna; sepsis; viral conjunctivitis right eye: Oral candidiasis -zinc/vitC/D -methylpred 40m every 8; wean as appropriate -Infectious disease consulted, patient recommendations -S/p Actemra and remdesivir -Trend temperature and WBC curve -Follow culture data -Right eye conjunctival redness-> ofloxacin x 5 d. Will obtain eyedrop info daughter that patient takes at home. Nystatin solution ordered. Endo- hyperglycemia; obesity -glargine HS -SSI AC/HS -Avoid hypoglycemia Hospital course to date: 04/17: Patient seen and examined, still uncomfortable with Hypoxic respiratory failure and on oxygen, will continue to steroids therapy, start patient on Remdesivir, ID consulted, Pulmonary consult placed. 04/18: Patient seen and examined, she is currently being changed to High flow NC due to worsening HYPOXIA, will transfer to IMCU, Pulmonary and ID following. Will also give a dose of Lasix today. Monitor Inflammatory markers. 04/19: Patient seen and examined still on high flow due to hypoxia. Appears a bit more comfortable today than yesterday. Cough has decreased in frequency. We will continue high dose Dexameathasone to complete 10 days. continue on Remdesivir 200 mg IV q day x 1 followed by 100 mg IV q day x 4 days -Obtain q48-72h inflammatory markers - ferritin, Ddimer, CRP, LDH Will also give lasix daily for the next 3 days and monitor renal function. Family updated. Continue prone positioning as tolerated 04/20: Patient has some desaturation episodes yesterday was placed on BiPAP. Discussed with ICU team for bed availability for patient to be transferred up. Continue prone position as tolerated. 04/21: Patient remains with profound hypoxia secondary to COVID pneumonia. -Continue steroids -Continue remedesir -S/P Actmera 04/22: Patient remains on steroids and remdesivir. ABG shows persistent hypoxia. We will continue current management additional trial of Lasix for the next few days to see if any improvement. Monitor inflammatory markers as needed. Prognosis is guarded remains on high flow 04/23; patient was treated with remdesivir and Actemra. Continue steroid. Patibobby nt's prognosis is guarded. 04/24; patient is on steroid. Patient is currently on BiPAP. Prognosis is guarded. Pulmonary is following. Patient was given Lasix and Ativan. 04/25; continue steroid. Patient was on 40 L of high flow oxygen with saturation was 88%. Pulmonary is following. Prognosis is guarded. Patient was given lasix and ativan. 04/26; patient is on BiPAP and Precedex. Prognosis is guarded. 04/27; patient is on BiPAP and Precedex. Patient will finish steroid today and will start on Solu-Medrol tomorrow. Prognosis is guarded. Blood pressure is better today. Hold Lasix. 04/28 patient is on 100 Fio2 via BIPAP. moderately dyspneic, pulmonary note reviewed, lab results reviewed 04/29 no acute events- see systems review above 04/30 no acute events overnight - on airvo today- TPN started -see systems review above 05-01 no acute events overnight- tolerating airvo- see systems review above - no acute events overnight; tolerating airvo this AM- see systems review a carlos alberto 05/03: Patient has shown remarkable improvement, weaned down to 3 L and satting 95%. Will attempt to walk test today in anticipation for discharge tomorrow. Discussed with PT team to walk the patient today also. 05/04: Patient appears to have had a decline he was down to 3 L satting 95% with anticipation for discharge today but desatted down to 85% on room air and only 88% on 5 L he is now back at 8 L. I encourage incentive spirometer. While he is on Xarelto and has completed the severe steroids which was subsequently changed to Solu-Medrol I will go ahead and order a CTA to make sure that there is not a failure of Xarelto. We will continue to wean as tolerated discussed with nursing staff at bedside. 05/05/21 Patient is on 40 L of oxygen with 80% FiO2. Patient is encouraged to turn to the side more frequently. Patient is denied any shortness of breath and coughing. No other complaints. Follow the CT scan of the chest. Status post remdesivir and Actemra.Solu-Medrol 40 mg IV every 8 hours. Continue current management. Pulmonary follow-up. 05/06: Patient remains on high flow nasal cannula but states that she feels slightly better with the help of translation from her cousin Aspen. Patient is still awaiting a bed on the floor. Patient diet is being tolerated now so we will stop TPN will be stopped tonight. 05/07/2021: Patient remains on 40 L/min oxygen at 90% FiO2. Attempt made for CTA chest to rule out pulmonary embolism however patient desatted while at CT. Study was aborted, will reattempt again tomorrow. will follow along with renetta bertrand. Discussed/updated patient and patient's daughter over phone regarding any active clinical issues. Patient only complaint is oral pain from oral candidiasis noted on exam. Nystatin oral solution ordered. Daughter also voiced concern over patient eye drops which she stated that patient needed to restart from home. However she did not remember name of drops. advised daughter to call our hospital with drop name and dosing and we will restart. 05/08/2021: Started anticoagulation with Lovenox yesterday. Awaiting CTA chest completion. Will attempt to de-escalate oxygen as patient tolerates 05/09/2021: Continues to have high O2 requirements. CTA chest aborted due to patient not being able to tolerate transport to and from scanner. Will follow pulmonology recommendations Subjective Principal diagnosis: Covid-19 Interval history: Patient continues to desaturate when attempting to go to the CT. On encounter she is resting with minimal discomfort. She states that her right eye still giving her trouble. The Cipro drops did not help. Regarding her respiratory status she still remains on hiflo 40 L/min and 95% FiO2 Objective - Exam Narrative Exam: Constitutional: no acute distress, alert, on hi flow nasal cannula Eyes: non-icteric, right eye erythematous ENT: dry, patchy white plaques noted Neck: supple Effort: normal Ascultation: Bilateral: diminished breath sounds Cardiovascular: regular rate and rhythm Gastrointestinal: normoactive bowel sounds, soft, non-tender, non-distended Integumentary: normal Extremities: no cyanosis, no edema, pink and warm Neurologic: normal mental status, non-focal exam, pupils equal and round, CN II- XII normal Psychiatric: mood appropriate, affect normal - Constitutional Vitals: Vital Signs - 12hr 05/08/21 05/08/21 05/08/21 21:04 21:29 22:00 Temperature 97.3 F L Pulse Rate 74 Respiratory 18 26 H Rate Blood Pressure 109/73 O2 Sat by Pulse 96 96 93 Oximetry 05/09/21 04:40 Temperature 98.3 F Pulse Rate 77 Respiratory 18 Rate Blood Pressure 124/76 O2 Sat by Pulse 95 Oximetry - Labs CBC & Chem 7: 05/06/21 05:00 05/07/21 04:54 Labs: Abnormal lab results 05/08/21 05/08/21 05/08/21 Range/Units 07:49 11:56 17:13 D-Dimer (0-234) ng/mlDDU POC Glucose 219 H 184 H 182 H (70-105) mg/dL Ferritin (10.0-200.0) ng/mL Lactate Dehydrogenase (91-180) units/L C-Reactive Protein (0.00-1.30) mg/dL 05/08/21 05/09/21 05/09/21 Range/Units 23:35 05:20 05:20 D-Dimer 1003.87 H (0-234) ng/mlDDU POC Glucose 198 H (70-105) mg/dL Ferritin 378.7 H (10.0-200.0) ng/mL Lactate Dehydrogenase (91-180) units/L C-Reactive Protein (0.00-1.30) mg/dL 05/09/21 05/09/21 Range/Units 05:20 06:04 D-Dimer (0-234) ng/mlDDU POC Glucose 159 H (70-105) mg/dL Ferritin (10.0-200.0) ng/mL Lactate Dehydrogenase 558 H (91-180) units/L C-Reactive Protein 2.40 H (0.00-1.30) mg/dL
--- NOTE | 2021-05-09 09:45 | XRay Report ---
. XR chest 1V ap INDICATION / CLINICAL INFORMATION: covid 19 pna. COMPARISON: 04/30/2021 FINDINGS: SUPPORT DEVICES: Right upper extremity PICC is unchanged. HEART /PULMONARY VASCULATURE: Unchanged. LUNGS / PLEURA: Diffuse pulmonary airspace opacities appear unchanged. No pneumothorax. Additional findings: Pneumomediastinum is improved. IMPRESSION: 1. No significant interval change. Signer Name: Jonathan Simeon MD Signed: 05/09/2021 9:40 AM Workstation Name: [id number]
[2021-05-09] MEDS: DOCUSATE SODIUM 100 MG CAP PO SCH (12:09)
[2021-05-09] MEDS: NYSTATIN 500,000 UNIT/5 ML ORAL LIQD PO SCH ×2 (12:09→15:38)
[2021-05-09] MEDS: CHOLECALCIFEROL (VIT D3) 1000 UNIT (25 mcg) TAB PO SCH (12:09)
[2021-05-09] MEDS: FAMOTIDINE 20 MG TAB PO SCH (12:09)
[2021-05-09] MEDS: INSULIN GLARGINE 100 UNITS/ML SUB-Q SCH (12:10)
[2021-05-09] MEDS: POLYETHYLENE GLYCOL 3350 17 GM POWDER PO SCH (12:12)
[2021-05-09] MEDS: ASCORBIC ACID 500 MG TAB PO SCH (12:13)
[2021-05-09] MEDS: ZINC SULFATE 220 MG CAP PO SCH (12:18)
--- NOTE | 2021-05-09 14:54 | Progress Note ---
Assessment and Plan 50 y/o female with acute respiratory failure secondary to COVID19 pneumonia. 05/09/21: Going to consider increasing steroids to 125q8, maybe as early as tomorrow. continue full dose anticoagulation. 05/08/21: Continue anticoagulation and steroids. Prone if possible. Anxiety control. No objection to CTA if this can happen. Very very guarded prognosis. 05/07/21: Spoke with IMS, not opposed to full dose anticoagulation. If patient goes back on NRB HFNC combo may need to consider restarting PPN again. Encourage proning. Guarded prognosis. 05/06/21: Continue to wean FiO2 and flow for sats >88%. Tolerating diet now so will stop PPN. Continue anxiety control. Continue IV steroids. Would not object to transfer to [facility] floor if bed available. Not sure why she was titrated back up to 100% from 85 as all sats documented in the RT's notes were acceptable. Same for under vital signs as well. 05/03/21: Set back last night from yesterday. Continue bipap therapy for now and attempt HFNC maybe later this afternoon. Continue to use PRN ativan but may need to schedule as she likely took off mask from anxiety. Continue IV steroids. Hold on transfer to [facility] Floor. 05/02/21: Continue to wean FiO2 as tolerated for sats >88%. Will continue bipap at night. Patient has no funding so not a candidate for LTACH. Given that she has been stable and not requiring the combo of HFNC and NRB, will consider moving to [facility] floor. 05/01/21: Continue to wean FiO2 for sats >88%. A sat of 90 is more than acceptable and oxygen should not be increased for this unless patient desats and remains at a sat lower than 88. Bipap at night to give some form of relief and HFNC during the day. Currently on just this alone which is improvement. Ok with daily diuresis but must monitor renal function and BP closely. She was o keyanna diuresed last week and we ended up giving fluid back. Prognosis remains guarded. 04/30/21: Will start CLinimix today for nutritional support, without electrolytes. Check labs in am. Prone if able. Continue precedx for anxiety. Very very guarded prognosis. Attempting our best to not intubate. 04/29/21: Continue precedex. Continue IV solumedrol. Prone if able. Guarded prognosis. 04/28/21: Continue Precedex. Picc team attempting to place line now. Stable on Bipap. Ordered steroids IV solumedrol to start today. Prognosis remains guarded, still at very high risk for intubation. 04/27/21: Hypotension improving/improved. Hold on any further lasix dosing. Continue precedex to help with anxeity. later today please attempt HFNC with NRB if needed. Attempt to feed if possible. Steroids end today, please order solumedrol 40q8 to start tomorrow (04/28/21). guarded prognosis. 04/26/21: Hypotension today, most likely from precedex use and diuresis that I did the last several days. Will bolus again today. Consider midodrine if BP does not respond. 04/25/21: Lasix again today. Keep PRN ativan for now. Hold on precedex for now. Guarded prognosis. Labs ordered for tomorrow. 04/24/21: Lasix today. Will also start patient on low dose PRN ativan. If this does not help will then try precedex. Guarded prognosis. 04/23/21: Prone as tolerated. No lasix today. Continue decadron. Guarded prognosis. High risk for intubation and high mortality with intubation. 04/19/21: Prone as tolerated during the day and sleep prone at night. Continue IV remdesivir and steroids. Did get actemra. Guarded prognosis. 1. Daily net negative state 2. Prone if possible 3. IV remdesivir. 4. Should be a candidate for Actemra 5. IV steroids 6. Guarded Prognosis Subjective Date of service: 05/09/21 Principal diagnosis: Covid-19 Interval history: No acute events. Still on HFNC. Objective Vital Signs - 12hr 05/09/21 05/09/21 04:40 08:00 Temperature 98.3 F Pulse Rate 77 Respiratory 18 Rate Blood Pressure 124/76 O2 Sat by Pulse 95 97 Oximetry Constitutional: no acute distress, alert Eyes: non-icteric ENT: oropharynx moist Neck: supple Effort: normal Ascultation: Bilateral: diminished breath sounds Cardiovascular: regular rate and rhythm Gastrointestinal: normoactive bowel sounds, soft, non-tender, non-distended Integumentary: normal Extremities: no cyanosis, no edema, pink and warm Neurologic: normal mental status, non-focal exam, pupils equal and round, CN II- XII normal Psychiatric: mood appropriate, affect normal CBC and BMP: 05/06/21 05:00 05/07/21 04:54 ABG, PT/INR, D-dimer: ABG ABG pH 7.229 (7.320-7.450) L 05/03/21 04:49 POC ABG pCO2 45.4 mmHg (32.0-48.0) 05/03/21 04:49 ABG pCO2 42.2 mm Hg 04/29/21 14:23 POC ABG pO2 65.3 mmHg (83-108) L 05/03/21 04:49 ABG pO2 52.6 mm Hg (80.0-90.0) L 04/29/21 14:23 POC ABG HCO3 18.5 05/03/21 04:49 ABG O2 Saturation 88.4 (0-100) 05/03/21 04:49 PT/INR, D-dimer D-Dimer 1003.87 ng/mlDDU (0-234) H 05/09/21 05:20 Abnormal lab findings: Abnormal Labs 04/16/21 04/16/21 04/16/21 11:42 11:42 11:42 WBC MCHC RDW 16.1 H Lymph % (Auto) 7.8 L Lymph # (Auto) 0.8 L Seg Neutrophils % 87.7 H Seg Neuts % (Manual) Seg Neutrophils # 8.5 H Seg Neutrophils # Man Lymphocytes # (Manual) D-Dimer 338.70 H ABG pH POC ABG pO2 ABG pO2 ABG O2 Saturation ABG Oxyhemoglobin ABG Sodium ABG Chloride ABG Glucose Oxyhemoglobin Carboxyhemoglobin Sodium Potassium Chloride Carbon Dioxide BUN Creatinine Glucose 194 H POC Glucose Hemoglobin A1c Ferritin AST ALT Alkaline Phosphatase Lactate Dehydrogenase C-Reactive Protein Total Protein 8.4 H Albumin 3.8 L Arterial Blood Glucose Coronavirus (PCR) 04/16/21 04/16/21 04/17/21 11:42 11:42 03:50 WBC MCHC RDW 16.0 H Lymph % (Auto) 7.7 L Lymph # (Auto) 0.6 L Seg Neutrophils % 89.8 H Seg Neuts % (Manual) Seg Neutrophils # Seg Neutrophils # Man Lymphocytes # (Manual) D-Dimer ABG pH POC ABG pO2 ABG pO2 ABG O2 Saturation ABG Oxyhemoglobin ABG Sodium ABG Chloride ABG Glucose Oxyhemoglobin Carboxyhemoglobin Sodium Potassium Chloride Carbon Dioxide BUN Creatinine Glucose 195 H POC Glucose Hemoglobin A1c Ferritin 254.3 H AST ALT Alkaline Phosphatase Lactate Dehydrogenase 359 H C-Reactive Protein 15.20 H Total Protein Albumin Arterial Blood Glucose Coronavirus (PCR) 04/17/21 04/17/21 04/17/21 03:50 08:26 08:26 WBC MCHC RDW Lymph % (Auto) Lymph # (Auto) Seg Neutrophils % Seg Neuts % (Manual) Seg Neutrophils # Seg Neutrophils # Man Lymphocytes # (Manual) D-Dimer 262.48 H ABG pH POC ABG pO2 ABG pO2 ABG O2 Saturation ABG Oxyhemoglobin ABG Sodium ABG Chloride ABG Glucose Oxyhemoglobin Carboxyhemoglobin Sodium Potassium Chloride Carbon Dioxide BUN 20 H Creatinine 0.5 L Glucose 249 H 225 H POC Glucose Hemoglobin A1c Ferritin AST ALT Alkaline Phosphatase Lactate Dehydrogenase 338 H C-Reactive Protein 17.20 H Total Protein Albumin 3.2 L Arterial Blood Glucose Coronavirus (PCR) 04/17/21 04/17/21 04/17/21 08:26 15:04 Unknown WBC MCHC RDW Lymph % (Auto) Lymph # (Auto) Seg Neutrophils % Seg Neuts % (Manual) Seg Neutrophils # Seg Neutrophils # Man Lymphocytes # (Manual) D-Dimer ABG pH POC ABG pO2 ABG pO2 ABG O2 Saturation ABG Oxyhemoglobin ABG Sodium ABG Chloride ABG Glucose Oxyhemoglobin Carboxyhemoglobin Sodium Potassium Chloride Carbon Dioxide BUN 20 H Creatinine 0.5 L Glucose 246 H POC Glucose Hemoglobin A1c Ferritin 392.0 H AST ALT Alkaline Phosphatase Lactate Dehydrogenase C-Reactive Protein Total Protein 8.3 H Albumin 3.1 L Arterial Blood Glucose Coronavirus (PCR) Positive A 04/18/21 04/18/21 04/18/21 05:06 05:06 07:36 WBC 11.6 H MCHC RDW 16.1 H Lymph % (Auto) Lymph # (Auto) Seg Neutrophils % Seg Neuts % (Manual) Seg Neutrophils # Seg Neutrophils # Man Lymphocytes # (Manual) D-Dimer ABG pH POC ABG pO2 ABG pO2 ABG O2 Saturation ABG Oxyhemoglobin ABG Sodium ABG Chloride ABG Glucose Oxyhemoglobin Carboxyhemoglobin Sodium Potassium 5.2 H Chloride Carbon Dioxide BUN 22 H Creatinine 0.5 L Glucose 315 H POC Glucose Hemoglobin A1c 8.5 H Ferritin AST ALT Alkaline Phosphatase Lactate Dehydrogenase C-Reactive Protein Total Protein Albumin 3.3 L Arterial Blood Glucose Coronavirus (PCR) 04/18/21 04/18/21 04/18/21 11:59 16:43 23:24 WBC MCHC RDW Lymph % (Auto) Lymph # (Auto) Seg Neutrophils % Seg Neuts % (Manual) Seg Neutrophils # Seg Neutrophils # Man Lymphocytes # (Manual) D-Dimer ABG pH POC ABG pO2 ABG pO2 ABG O2 Saturation ABG Oxyhemoglobin ABG Sodium ABG Chloride ABG Glucose Oxyhemoglobin Carboxyhemoglobin Sodium Potassium Chloride Carbon Dioxide BUN Creatinine Glucose POC Glucose 284 H 273 H 290 H Hemoglobin A1c Ferritin AST ALT Alkaline Phosphatase Lactate Dehydrogenase C-Reactive Protein Total Protein Albumin Arterial Blood Glucose Coronavirus (PCR) 04/19/21 04/19/21 04/19/21 04:19 04:19 08:10 WBC MCHC RDW 15.7 H Lymph % (Auto) Lymph # (Auto) Seg Neutrophils % Seg Neuts % (Manual) Seg Neutrophils # Seg Neutrophils # Man Lymphocytes # (Manual) D-Dimer ABG pH POC ABG pO2 ABG pO2 ABG O2 Saturation ABG Oxyhemoglobin ABG Sodium ABG Chloride ABG Glucose Oxyhemoglobin Carboxyhemoglobin Sodium Potassium Chloride Carbon Dioxide BUN 27 H Creatinine 0.4 L Glucose 184 H POC Glucose 194 H Hemoglobin A1c Ferritin AST ALT Alkaline Phosphatase Lactate Dehydrogenase C-Reactive Protein Total Protein Albumin 3.1 L Arterial Blood Glucose Coronavirus (PCR) 04/19/21 04/19/21 04/19/21 11:38 16:25 22:04 WBC MCHC RDW Lymph % (Auto) Lymph # (Auto) Seg Neutrophils % Seg Neuts % (Manual) Seg Neutrophils # Seg Neutrophils # Man Lymphocytes # (Manual) D-Dimer ABG pH POC ABG pO2 ABG pO2 ABG O2 Saturation ABG Oxyhemoglobin ABG Sodium ABG Chloride ABG Glucose Oxyhemoglobin Carboxyhemoglobin Sodium Potassium Chloride Carbon Dioxide BUN Creatinine Glucose POC Glucose 224 H 297 H 251 H Hemoglobin A1c Ferritin AST ALT Alkaline Phosphatase Lactate Dehydrogenase C-Reactive Protein Total Protein Albumin Arterial Blood Glucose Coronavirus (PCR) 04/20/21 04/20/21 04/20/21 05:28 08:43 16:21 WBC MCHC RDW Lymph % (Auto) Lymph # (Auto) Seg Neutrophils % Seg Neuts % (Manual) Seg Neutrophils # Seg Neutrophils # Man Lymphocytes # (Manual) D-Dimer ABG pH POC ABG pO2 ABG pO2 ABG O2 Saturation ABG Oxyhemoglobin ABG Sodium ABG Chloride ABG Glucose Oxyhemoglobin Carboxyhemoglobin Sodium Potassium Chloride Carbon Dioxide BUN 27 H Creatinine Glucose 192 H POC Glucose 173 H 253 H Hemoglobin A1c Ferritin AST ALT Alkaline Phosphatase Lactate Dehydrogenase C-Reactive Protein Total Protein Albumin 3.0 L Arterial Blood Glucose Coronavirus (PCR) 04/21/21 04/21/21 04/21/21 07:58 12:05 16:08 WBC MCHC RDW Lymph % (Auto) Lymph # (Auto) Seg Neutrophils % Seg Neuts % (Manual) Seg Neutrophils # Seg Neutrophils # Man Lymphocytes # (Manual) D-Dimer ABG pH POC ABG pO2 ABG pO2 ABG O2 Saturation ABG Oxyhemoglobin ABG Sodium ABG Chloride ABG Glucose Oxyhemoglobin Carboxyhemoglobin Sodium Potassium Chloride Carbon Dioxide BUN Creatinine Glucose POC Glucose 140 H 252 H 214 H Hemoglobin A1c Ferritin AST ALT Alkaline Phosphatase Lactate Dehydrogenase C-Reactive Protein Total Protein Albumin Arterial Blood Glucose Coronavirus (PCR) 04/21/21 04/22/21 04/22/21 21:42 08:37 12:01 WBC MCHC RDW Lymph % (Auto) Lymph # (Auto) Seg Neutrophils % Seg Neuts % (Manual) Seg Neutrophils # Seg Neutrophils # Man Lymphocytes # (Manual) D-Dimer ABG pH 7.457 H POC ABG pO2 49.4 L ABG pO2 ABG O2 Saturation ABG Oxyhemoglobin 85.6 L ABG Sodium ABG Chloride ABG Glucose 121 H Oxyhemoglobin Carboxyhemoglobin 0.3 L Sodium Potassium Chloride Carbon Dioxide BUN Creatinine Glucose POC Glucose 162 H 227 H Hemoglobin A1c Ferritin AST ALT Alkaline Phosphatase Lactate Dehydrogenase C-Reactive Protein Total Protein Albumin Arterial Blood Glucose 121 H Coronavirus (PCR) 04/22/21 04/22/21 04/23/21 16:26 22:23 04:52 WBC MCHC RDW 15.7 H Lymph % (Auto) Lymph # (Auto) Seg Neutrophils % Seg Neuts % (Manual) Seg Neutrophils # Seg Neutrophils # Man Lymphocytes # (Manual) D-Dimer ABG pH POC ABG pO2 ABG pO2 ABG O2 Saturation ABG Oxyhemoglobin ABG Sodium ABG Chloride ABG Glucose Oxyhemoglobin Carboxyhemoglobin Sodium Potassium Chloride Carbon Dioxide BUN Creatinine Glucose POC Glucose 200 H 136 H Hemoglobin A1c Ferritin AST ALT Alkaline Phosphatase Lactate Dehydrogenase C-Reactive Protein Total Protein Albumin Arterial Blood Glucose Coronavirus (PCR) 04/23/21 04/23/21 04/23/21 04:52 12:06 17:41 WBC MCHC RDW Lymph % (Auto) Lymph # (Auto) Seg Neutrophils % Seg Neuts % (Manual) Seg Neutrophils # Seg Neutrophils # Man Lymphocytes # (Manual) D-Dimer ABG pH POC ABG pO2 ABG pO2 ABG O2 Saturation ABG Oxyhemoglobin ABG Sodium ABG Chloride ABG Glucose Oxyhemoglobin Carboxyhemoglobin Sodium 136 L Potassium Chloride 97.7 L Carbon Dioxide BUN 23 H Creatinine Glucose 101 H POC Glucose 202 H 169 H Hemoglobin A1c Ferritin AST 46 H ALT Alkaline Phosphatase Lactate Dehydrogenase C-Reactive Protein Total Protein Albumin 3.3 L Arterial Blood Glucose Coronavirus (PCR) 04/23/21 04/24/21 04/24/21 23:08 05:17 08:38 WBC MCHC RDW Lymph % (Auto) Lymph # (Auto) Seg Neutrophils % Seg Neuts % (Manual) Seg Neutrophils # Seg Neutrophils # Man Lymphocytes # (Manual) D-Dimer ABG pH POC ABG pO2 ABG pO2 ABG O2 Saturation ABG Oxyhemoglobin ABG Sodium ABG Chloride ABG Glucose Oxyhemoglobin Carboxyhemoglobin Sodium Potassium Chloride Carbon Dioxide BUN Creatinine Glucose POC Glucose 111 H 108 H 126 H Hemoglobin A1c Ferritin AST ALT Alkaline Phosphatase Lactate Dehydrogenase C-Reactive Protein Total Protein Albumin Arterial Blood Glucose Coronavirus (PCR) 04/24/21 04/24/21 04/24/21 11:54 17:57 21:23 WBC MCHC RDW Lymph % (Auto) Lymph # (Auto) Seg Neutrophils % Seg Neuts % (Manual) Seg Neutrophils # Seg Neutrophils # Man Lymphocytes # (Manual) D-Dimer ABG pH POC ABG pO2 ABG pO2 ABG O2 Saturation ABG Oxyhemoglobin ABG Sodium ABG Chloride ABG Glucose Oxyhemoglobin Carboxyhemoglobin Sodium Potassium Chloride Carbon Dioxide BUN Creatinine Glucose POC Glucose 147 H 177 H 138 H Hemoglobin A1c Ferritin AST ALT Alkaline Phosphatase Lactate Dehydrogenase C-Reactive Protein Total Protein Albumin Arterial Blood Glucose Coronavirus (PCR) 04/25/21 04/25/2104/25/21 07:06 11:23 15:43 WBC MCHC RDW Lymph % (Auto) Lymph # (Auto) Seg Neutrophils % Seg Neuts % (Manual) Seg Neutrophils # Seg Neutrophils # Man Lymphocytes # (Manual) D-Dimer ABG pH POC ABG pO2 ABG pO2 ABG O2 Saturation ABG Oxyhemoglobin ABG Sodium ABG Chloride ABG Glucose Oxyhemoglobin Carboxyhemoglobin Sodium Potassium Chloride Carbon Dioxide BUN Creatinine Glucose POC Glucose 147 H 169 H 227 H Hemoglobin A1c Ferritin AST ALT Alkaline Phosphatase Lactate Dehydrogenase C-Reactive Protein Total Protein Albumin Arterial Blood Glucose Coronavirus (PCR) 04/25/21 04/26/21 04/26/21 21:22 02:45 05:15 WBC MCHC RDW Lymph % (Auto) Lymph # (Auto) Seg Neutrophils % Seg Neuts % (Manual) Seg Neutrophils # Seg Neutrophils # Man Lymphocytes # (Manual) D-Dimer ABG pH POC ABG pO2 70.7 L ABG pO2 ABG O2 Saturation ABG Oxyhemoglobin 93.0 L ABG Sodium 132.7 L ABG Chloride ABG Glucose 115 H Oxyhemoglobin Carboxyhemoglobin Sodium Potassium Chloride 95.8 L Carbon Dioxide 32 H BUN 20 H Creatinine Glucose 102 H POC Glucose 196 H Hemoglobin A1c Ferritin AST ALT Alkaline Phosphatase Lactate Dehydrogenase C-Reactive Protein Total Protein Albumin Arterial Blood Glucose 115 H Coronavirus (PCR) 04/26/21 04/26/21 04/26/21 11:49 16:09 21:07 WBC MCHC RDW Lymph % (Auto) Lymph # (Auto) Seg Neutrophils % Seg Neuts % (Manual) Seg Neutrophils # Seg Neutrophils # Man Lymphocytes # (Manual) D-Dimer ABG pH POC ABG pO2 ABG pO2 ABG O2 Saturation ABG Oxyhemoglobin ABG Sodium ABG Chloride ABG Glucose Oxyhemoglobin Carboxyhemoglobin Sodium Potassium Chloride Carbon Dioxide BUN Creatinine Glucose POC Glucose 114 H 188 H 136 H Hemoglobin A1c Ferritin AST ALT Alkaline Phosphatase Lactate Dehydrogenase C-Reactive Protein Total Protein Albumin Arterial Blood Glucose Coronavirus (PCR) 04/27/21 04/27/21 04/28/21 17:34 22:12 08:26 WBC MCHC RDW Lymph % (Auto) Lymph # (Auto) Seg Neutrophils % Seg Neuts % (Manual) Seg Neutrophils # Seg Neutrophils # Man Lymphocytes # (Manual) D-Dimer ABG pH POC ABG pO2 ABG pO2 ABG O2 Saturation ABG Oxyhemoglobin ABG Sodium ABG Chloride ABG Glucose Oxyhemoglobin Carboxyhemoglobin Sodium Potassium Chloride Carbon Dioxide BUN Creatinine Glucose POC Glucose 128 H 159 H 69 L Hemoglobin A1c Ferritin AST ALT Alkaline Phosphatase Lactate Dehydrogenase C-Reactive Protein Total Protein Albumin Arterial Blood Glucose Coronavirus (PCR) 04/28/21 04/28/21 04/29/21 12:22 21:11 06:05 WBC MCHC RDW Lymph % (Auto) Lymph # (Auto) Seg Neutrophils % Seg Neuts % (Manual) Seg Neutrophils # Seg Neutrophils # Man Lymphocytes # (Manual) D-Dimer ABG pH POC ABG pO2 ABG pO2 ABG O2 Saturation ABG Oxyhemoglobin ABG Sodium ABG Chloride ABG Glucose Oxyhemoglobin Carboxyhemoglobin Sodium 132 L Potassium Chloride 94.4 L Carbon Dioxide BUN Creatinine 0.2 L D Glucose 140 H POC Glucose 141 H 171 H Hemoglobin A1c Ferritin AST ALT Alkaline Phosphatase Lactate Dehydrogenase C-Reactive Protein Total Protein Albumin Arterial Blood Glucose Coronavirus (PCR) 04/29/21 04/29/21 04/29/21 06:05 07:24 11:36 WBC MCHC 35 H RDW 15.9 H Lymph % (Auto) Lymph # (Auto) Seg Neutrophils % Seg Neuts % (Manual) Seg Neutrophils # Seg Neutrophils # Man Lymphocytes # (Manual) D-Dimer ABG pH POC ABG pO2 ABG pO2 ABG O2 Saturation ABG Oxyhemoglobin ABG Sodium ABG Chloride ABG Glucose Oxyhemoglobin Carboxyhemoglobin Sodium Potassium Chloride Carbon Dioxide BUN Creatinine Glucose POC Glucose 141 H 220 H Hemoglobin A1c Ferritin AST ALT Alkaline Phosphatase Lactate Dehydrogenase C-Reactive Protein Total Protein Albumin Arterial Blood Glucose Coronavirus (PCR) 04/29/21 04/29/21 04/29/21 14:23 15:30 17:06 WBC MCHC RDW Lymph % (Auto) Lymph # (Auto) Seg Neutrophils % Seg Neuts % (Manual) Seg Neutrophils # Seg Neutrophils # Man Lymphocytes # (Manual) D-Dimer ABG pH POC ABG pO2 ABG pO2 52.6 L ABG O2 Saturation 86.4 L ABG Oxyhemoglobin ABG Sodium ABG Chloride ABG Glucose Oxyhemoglobin 84.6 L Carboxyhemoglobin Sodium Potassium Chloride Carbon Dioxide BUN Creatinine Glucose POC Glucose 173 H 158 H Hemoglobin A1c Ferritin AST ALT Alkaline Phosphatase Lactate Dehydrogenase C-Reactive Protein Total Protein Albumin Arterial Blood Glucose Coronavirus (PCR) 04/29/21 04/30/21 04/30/21 21:27 07:16 08:00 WBC MCHC RDW 16.1 H Lymph % (Auto) Lymph # (Auto) Seg Neutrophils % Seg Neuts % (Manual) Seg Neutrophils # Seg Neutrophils # Man Lymphocytes # (Manual) D-Dimer ABG pH POC ABG pO2 ABG pO2 ABG O2 Saturation ABG Oxyhemoglobin ABG Sodium ABG Chloride ABG Glucose Oxyhemoglobin Carboxyhemoglobin Sodium Potassium Chloride Carbon Dioxide BUN Creatinine Glucose POC Glucose 244 H 175 H Hemoglobin A1c Ferritin AST ALT Alkaline Phosphatase Lactate Dehydrogenase C-Reactive Protein Total Protein Albumin Arterial Blood Glucose Coronavirus (PCR) 04/30/21 04/30/21 04/30/21 08:00 08:00 11:03 WBC MCHC RDW Lymph % (Auto) Lymph # (Auto) Seg Neutrophils % Seg Neuts % (Manual) Seg Neutrophils # Seg Neutrophils # Man Lymphocytes # (Manual) D-Dimer 1796.87 H ABG pH POC ABG pO2 ABG pO2 ABG O2 Saturation ABG Oxyhemoglobin ABG Sodium ABG Chloride ABG Glucose Oxyhemoglobin Carboxyhemoglobin Sodium 135 L Potassium Chloride 96.3 L Carbon Dioxide BUN Creatinine 0.2 L Glucose 153 H POC Glucose 183 H Hemoglobin A1c Ferritin AST 41 H ALT 76 H Alkaline Phosphatase 160 H Lactate Dehydrogenase 522 H C-Reactive Protein Total Protein 6.1 L Albumin 3.1 L Arterial Blood Glucose Coronavirus (PCR) 04/30/21 04/30/21 05/01/21 17:04 22:17 05:39 WBC MCHC RDW Lymph % (Auto) Lymph # (Auto) Seg Neutrophils % Seg Neuts % (Manual) Seg Neutrophils # Seg Neutrophils # Man Lymphocytes # (Manual) D-Dimer ABG pH POC ABG pO2 ABG pO2 ABG O2 Saturation ABG Oxyhemoglobin ABG Sodium ABG Chloride ABG Glucose Oxyhemoglobin Carboxyhemoglobin Sodium 133 L Potassium Chloride 92.1 L Carbon Dioxide BUN 24 H Creatinine 0.4 L D Glucose 269 H POC Glucose 167 H 208 H Hemoglobin A1c Ferritin AST ALT 66 H Alkaline Phosphatase 142 H Lactate Dehydrogenase C-Reactive Protein Total Protein Albumin 3.2 L Arterial Blood Glucose Coronavirus (PCR) 05/01/21 05/01/21 05/01/21 05:39 05:39 07:45 WBC MCHC RDW 16.0 H Lymph % (Auto) Lymph # (Auto) Seg Neutrophils % Seg Neuts % (Manual) Seg Neutrophils # Seg Neutrophils # Man Lymphocytes # (Manual) D-Dimer 3984.95 H ABG pH POC ABG pO2 ABG pO2 ABG O2 Saturation ABG Oxyhemoglobin ABG Sodium ABG Chloride ABG Glucose Oxyhemoglobin Carboxyhemoglobin Sodium Potassium Chloride Carbon Dioxide BUN Creatinine Glucose POC Glucose 229 H Hemoglobin A1c Ferritin AST ALT Alkaline Phosphatase Lactate Dehydrogenase C-Reactive Protein Total Protein Albumin Arterial Blood Glucose Coronavirus (PCR) 05/01/21 05/01/21 05/01/21 12:10 15:46 21:06 WBC MCHC RDW Lymph % (Auto) Lymph # (Auto) Seg Neutrophils % Seg Neuts % (Manual) Seg Neutrophils # Seg Neutrophils # Man Lymphocytes # (Manual) D-Dimer ABG pH POC ABG pO2 ABG pO2 ABG O2 Saturation ABG Oxyhemoglobin ABG Sodium ABG Chloride ABG Glucose Oxyhemoglobin Carboxyhemoglobin Sodium Potassium Chloride Carbon Dioxide BUN Creatinine Glucose POC Glucose 296 H 279 H 232 H Hemoglobin A1c Ferritin AST ALT Alkaline Phosphatase Lactate Dehydrogenase C-Reactive Protein Total Protein Albumin Arterial Blood Glucose Coronavirus (PCR) 05/02/21 05/02/21 05/02/21 04:55 04:55 04:55 WBC MCHC RDW 16.1 H Lymph % (Auto) Lymph # (Auto) Seg Neutrophils % Seg Neuts % (Manual) Seg Neutrophils # Seg Neutrophils # Man Lymphocytes # (Manual) D-Dimer 1401.08 H ABG pH POC ABG pO2 ABG pO2 ABG O2 Saturation ABG Oxyhemoglobin ABG Sodium ABG Chloride ABG Glucose Oxyhemoglobin Carboxyhemoglobin Sodium 131 L Potassium Chloride 95.5 L Carbon Dioxide BUN 20 H Creatinine 0.3 L Glucose 288 H POC Glucose Hemoglobin A1c Ferritin AST ALT Alkaline Phosphatase Lactate Dehydrogenase C-Reactive Protein Total Protein 6.0 L Albumin 3.1 L Arterial Blood Glucose Coronavirus (PCR) 05/02/21 05/02/21 05/02/21 07:53 11:45 15:25 WBC MCHC RDW Lymph % (Auto) Lymph # (Auto) Seg Neutrophils % Seg Neuts % (Manual) Seg Neutrophils # Seg Neutrophils # Man Lymphocytes # (Manual) D-Dimer ABG pH POC ABG pO2 ABG pO2 ABG O2 Saturation ABG Oxyhemoglobin ABG Sodium ABG Chloride ABG Glucose Oxyhemoglobin Carboxyhemoglobin Sodium Potassium Chloride Carbon Dioxide BUN Creatinine Glucose POC Glucose 180 H 228 H 275 H Hemoglobin A1c Ferritin AST ALT Alkaline Phosphatase Lactate Dehydrogenase C-Reactive Protein Total Protein Albumin Arterial Blood Glucose Coronavirus (PCR) 05/02/21 05/03/21 05/03/21 22:56 04:30 04:49 WBC MCHC RDW Lymph % (Auto) Lymph # (Auto) Seg Neutrophils % Seg Neuts % (Manual) Seg Neutrophils # Seg Neutrophils # Man Lymphocytes # (Manual) D-Dimer ABG pH 7.229 L POC ABG pO2 65.3 L ABG pO2 ABG O2 Saturation ABG Oxyhemoglobin 87.8 L ABG Sodium 133.0 L ABG Chloride 97.0 L ABG Glucose 403 H Oxyhemoglobin Carboxyhemoglobin Sodium 130 L Potassium Chloride 94.9 L Carbon Dioxide BUN 20 H Creatinine 0.5 L D Glucose 359 H POC Glucose 293 H Hemoglobin A1c Ferritin AST 54 H ALT 75 H Alkaline Phosphatase 138 H Lactate Dehydrogenase C-Reactive Protein Total Protein Albumin 3.6 L Arterial Blood Glucose 403 H Coronavirus (PCR) 05/03/21 05/03/21 05/03/21 05:27 11:26 17:57 WBC MCHC RDW Lymph % (Auto) Lymph # (Auto) Seg Neutrophils % Seg Neuts % (Manual) Seg Neutrophils # Seg Neutrophils # Man Lymphocytes # (Manual) D-Dimer ABG pH POC ABG pO2 ABG pO2 ABG O2 Saturation ABG Oxyhemoglobin ABG Sodium ABG Chloride ABG Glucose Oxyhemoglobin Carboxyhemoglobin Sodium Potassium Chloride Carbon Dioxide BUN Creatinine Glucose POC Glucose 361 H 297 H 226 H Hemoglobin A1c Ferritin AST ALT Alkaline Phosphatase Lactate Dehydrogenase C-Reactive Protein Total Protein Albumin Arterial Blood Glucose Coronavirus (PCR) 05/03/21 05/04/21 05/04/21 23:12 05:12 07:30 WBC MCHC RDW Lymph % (Auto) Lymph # (Auto) Seg Neutrophils % Seg Neuts % (Manual) Seg Neutrophils # Seg Neutrophils # Man Lymphocytes # (Manual) D-Dimer ABG pH POC ABG pO2 ABG pO2 ABG O2 Saturation ABG Oxyhemoglobin ABG Sodium ABG Chloride ABG Glucose Oxyhemoglobin Carboxyhemoglobin Sodium Potassium Chloride Carbon Dioxide BUN Creatinine Glucose POC Glucose 282 H 285 H 254 H Hemoglobin A1c Ferritin AST ALT Alkaline Phosphatase Lactate Dehydrogenase C-Reactive Protein Total Protein Albumin Arterial Blood Glucose Coronavirus (PCR) 05/04/21 05/04/21 05/04/21 08:58 11:45 16:07 WBC MCHC RDW Lymph % (Auto) Lymph # (Auto) Seg Neutrophils % Seg Neuts % (Manual) Seg Neutrophils # Seg Neutrophils # Man Lymphocytes # (Manual) D-Dimer ABG pH POC ABG pO2 ABG pO2 ABG O2 Saturation ABG Oxyhemoglobin ABG Sodium ABG Chloride ABG Glucose Oxyhemoglobin Carboxyhemoglobin Sodium 134 L Potassium Chloride Carbon Dioxide BUN 20 H Creatinine 0.3 L Glucose 267 H POC Glucose 244 H 297 H Hemoglobin A1c Ferritin AST ALT Alkaline Phosphatase Lactate Dehydrogenase C-Reactive Protein Total Protein 6.0 L Albumin 3.2 L Arterial Blood Glucose Coronavirus (PCR) 05/04/21 05/05/21 05/05/21 23:32 05:00 05:13 WBC MCHC RDW Lymph % (Auto) Lymph # (Auto) Seg Neutrophils % Seg Neuts % (Manual) Seg Neutrophils # Seg Neutrophils # Man Lymphocytes # (Manual) D-Dimer ABG pH POC ABG pO2 ABG pO2 ABG O2 Saturation ABG Oxyhemoglobin ABG Sodium ABG Chloride ABG Glucose Oxyhemoglobin Carboxyhemoglobin Sodium 132 L Potassium Chloride 96.4 L Carbon Dioxide BUN 22 H Creatinine 0.3 L Glucose 228 H POC Glucose 154 H 260 H Hemoglobin A1c Ferritin AST ALT 67 H Alkaline Phosphatase Lactate Dehydrogenase C-Reactive Protein Total Protein 6.1 L Albumin 3.2 L Arterial Blood Glucose Coronavirus (PCR) 05/05/21 05/05/21 05/05/21 11:32 17:49 23:07 WBC MCHC RDW Lymph % (Auto) Lymph # (Auto) Seg Neutrophils % Seg Neuts % (Manual) Seg Neutrophils # Seg Neutrophils # Man Lymphocytes # (Manual) D-Dimer ABG pH POC ABG pO2 ABG pO2 ABG O2 Saturation ABG Oxyhemoglobin ABG Sodium ABG Chloride ABG Glucose Oxyhemoglobin Carboxyhemoglobin Sodium Potassium Chloride Carbon Dioxide BUN Creatinine Glucose POC Glucose 279 H 308 H 213 H Hemoglobin A1c Ferritin AST ALT Alkaline Phosphatase Lactate Dehydrogenase C-Reactive Protein Total Protein Albumin Arterial Blood Glucose Coronavirus (PCR) 05/06/21 05/06/21 05/06/21 05:00 05:00 05:20 WBC MCHC RDW 16.8 H Lymph % (Auto) Lymph # (Auto) Seg Neutrophils % Seg Neuts % (Manual) 99.0 H Seg Neutrophils # Seg Neutrophils # Man 10.9 H Lymphocytes # (Manual) 0.0 L D-Dimer ABG pH POC ABG pO2 ABG pO2 ABG O2 Saturation ABG Oxyhemoglobin ABG Sodium ABG Chloride ABG Glucose Oxyhemoglobin Carboxyhemoglobin Sodium 133 L Potassium Chloride Carbon Dioxide BUN 21 H Creatinine 0.3 L Glucose 259 H POC Glucose 308 H Hemoglobin A1c Ferritin AST ALT Alkaline Phosphatase Lactate Dehydrogenase C-Reactive Protein Total Protein Albumin 3.2 L Arterial Blood Glucose Coronavirus (PCR) 05/06/21 05/06/21 05/06/21 11:24 17:54 21:32 WBC MCHC RDW Lymph % (Auto) Lymph # (Auto) Seg Neutrophils % Seg Neuts % (Manual) Seg Neutrophils # Seg Neutrophils # Man Lymphocytes # (Manual) D-Dimer ABG pH POC ABG pO2 ABG pO2 ABG O2 Saturation ABG Oxyhemoglobin ABG Sodium ABG Chloride ABG Glucose Oxyhemoglobin Carboxyhemoglobin Sodium Potassium Chloride Carbon Dioxide BUN Creatinine Glucose POC Glucose 262 H 124 H 246 H Hemoglobin A1c Ferritin AST ALT Alkaline Phosphatase Lactate Dehydrogenase C-Reactive Protein Total Protein Albumin Arterial Blood Glucose Coronavirus (PCR) 05/06/21 05/07/21 05/07/21 23:10 04:54 04:54 WBC MCHC RDW Lymph % (Auto) Lymph # (Auto) Seg Neutrophils % Seg Neuts % (Manual) Seg Neutrophils # Seg Neutrophils # Man Lymphocytes # (Manual) D-Dimer 1609.28 H ABG pH POC ABG pO2 ABG pO2 ABG O2 Saturation ABG Oxyhemoglobin ABG Sodium ABG Chloride ABG Glucose Oxyhemoglobin Carboxyhemoglobin Sodium 136 L Potassium Chloride Carbon Dioxide BUN 23 H Creatinine 0.3 L Glucose 110 H POC Glucose 249 H Hemoglobin A1c Ferritin AST ALT Alkaline Phosphatase Lactate Dehydrogenase C-Reactive Protein Total Protein 6.2 L Albumin 3.0 L Arterial Blood Glucose Coronavirus (PCR) 05/07/21 05/07/21 05/07/21 04:54 04:54 11:41 WBC MCHC RDW Lymph % (Auto) Lymph # (Auto) Seg Neutrophils % Seg Neuts % (Manual) Seg Neutrophils # Seg Neutrophils # Man Lymphocytes # (Manual) D-Dimer ABG pH POC ABG pO2 ABG pO2 ABG O2 Saturation ABG Oxyhemoglobin ABG Sodium ABG Chloride ABG Glucose Oxyhemoglobin Carboxyhemoglobin Sodium Potassium Chloride Carbon Dioxide BUN Creatinine Glucose POC Glucose 118 H Hemoglobin A1c Ferritin 296.1 H AST ALT Alkaline Phosphatase Lactate Dehydrogenase 724 H C-Reactive Protein Total Protein Albumin Arterial Blood Glucose Coronavirus (PCR) 05/07/21 05/07/21 05/08/21 16:43 22:34 06:44 WBC MCHC RDW Lymph % (Auto) Lymph # (Auto) Seg Neutrophils % Seg Neuts % (Manual) Seg Neutrophils # Seg Neutrophils # Man Lymphocytes # (Manual) D-Dimer ABG pH POC ABG pO2 ABG pO2 ABG O2 Saturation ABG Oxyhemoglobin ABG Sodium ABG Chloride ABG Glucose Oxyhemoglobin Carboxyhemoglobin Sodium Potassium Chloride Carbon Dioxide BUN Creatinine Glucose POC Glucose 159 H 233 H 235 H Hemoglobin A1c Ferritin AST ALT Alkaline Phosphatase Lactate Dehydrogenase C-Reactive Protein Total Protein Albumin Arterial Blood Glucose Coronavirus (PCR) 05/08/21 05/08/21 05/08/21 07:49 11:56 17:13 WBC MCHC RDW Lymph % (Auto) Lymph # (Auto) Seg Neutrophils % Seg Neuts % (Manual) Seg Neutrophils # Seg Neutrophils # Man Lymphocytes # (Manual) D-Dimer ABG pH POC ABG pO2 ABG pO2 ABG O2 Saturation ABG Oxyhemoglobin ABG Sodium ABG Chloride ABG Glucose Oxyhemoglobin Carboxyhemoglobin Sodium Potassium Chloride Carbon Dioxide BUN Creatinine Glucose POC Glucose 219 H 184 H 182 H Hemoglobin A1c Ferritin AST ALT Alkaline Phosphatase Lactate Dehydrogenase C-Reactive Protein Total Protein Albumin Arterial Blood Glucose Coronavirus (PCR) 05/08/21 05/09/21 05/09/21 23:35 05:20 05:20 WBC MCHC RDW Lymph % (Auto) Lymph # (Auto) Seg Neutrophils % Seg Neuts % (Manual) Seg Neutrophils # Seg Neutrophils # Man Lymphocytes # (Manual) D-Dimer 1003.87 H ABG pH POC ABG pO2 ABG pO2 ABG O2 Saturation ABG Oxyhemoglobin ABG Sodium ABG Chloride ABG Glucose Oxyhemoglobin Carboxyhemoglobin Sodium Potassium Chloride Carbon Dioxide BUN Creatinine Glucose POC Glucose 198 H Hemoglobin A1c Ferritin 378.7 H AST ALT Alkaline Phosphatase Lactate Dehydrogenase C-Reactive Protein Total Protein Albumin Arterial Blood Glucose Coronavirus (PCR) 05/09/21 05/09/21 05/09/21 05:20 06:04 12:53 WBC MCHC RDW Lymph % (Auto) Lymph # (Auto) Seg Neutrophils % Seg Neuts % (Manual) Seg Neutrophils # Seg Neutrophils # Man Lymphocytes # (Manual) D-Dimer ABG pH POC ABG pO2 ABG pO2 ABG O2 Saturation ABG Oxyhemoglobin ABG Sodium ABG Chloride ABG Glucose Oxyhemoglobin Carboxyhemoglobin Sodium Potassium Chloride Carbon Dioxide BUN Creatinine Glucose POC Glucose 159 H 180 H Hemoglobin A1c Ferritin AST ALT Alkaline Phosphatase Lactate Dehydrogenase 558 H C-Reactive Protein 2.40 H Total Protein Albumin Arterial Blood Glucose Coronavirus (PCR)
--- NOTE | 2021-05-09 16:13 | Progress Note ---
Assessment and Plan This is a 50-year-old female with GERD, obesity, HLD who presented to emergency department on 04/16 with complaints of "I cannot breathe" stating that she experienced subjective fever, shortness of breath, malaise, body aches, and dry cough over the past week via EMS. In the emergency department patient was found to have a pulse ox of 86% on room air with exertion. CXR revealed bilateral pneumonia. Patient was admitted to the hospital service to the floor with acute hypoxic respiratory failure and because of COVID-19 PUI. Of note patient is unvaccinated for coronavirus. Now subsequently transferred to medical floor from [facility].. Assessment and plan: NEURO- acute pain; anxiety -PRN tylenol -S/p dexamethasone for comfort -Follows commands and RAY -PRN pain meds -Patient is Samoan-speaking -Right eye- viral conjunctivitis vs subconjunctival hemorrhage continue to monitor started on ofloxacin ou x 5 days, completed therapy artificial tears has not provided relief Discussed with patient regarding eyedrops. She does not use prescription eyedrops at home. -Family updated on plan of care discussed with daughter over phone. CV- ST -SR-ST -S/p pressors now discontinued -MAP goal 65 -Pressure monitor per protocol Resp- acute hypoxic resp failure due to covid19 -S/p BiPAP, now discontinued -Currently on high per nasal cannula at flow rate 40 L/min, FiO2 90% -See RT notes for titration -Albuterol as needed -Pulmonary hygiene -Pulmonology following CTA chest canceled after 3 attempts. GI- risk for protein gisella malnutrition given inc metabolic demand with resp insufficiency -TPN earlier in hospital admission due to BiPAP however now patient is tolerating p.o. -Patient on a GI soft diet with aspiration precautions -Nutrition following -Bowel regimen: Colace, senna, MiraLAX -PPI - volume overload; hyponatremia -Last 24 hours -125 -Trend BMP -Replace electrolytes as needed -Monitor intake and output Heme- coagulopathy of covid; on AC -Subcu heparin -Trend CBC -Transfuse for hemoglobin less than 7 -Bilateral lower extremity Doppler ultrasounds negative for DVT ; no CTA or VQ scan to rule out PE ID-covid19 pna; sepsis; viral conjunctivitis right eye: Oral candidiasis -zinc/vitC/D -methylpred 40m every 8; wean as appropriate -Infectious disease consulted, patient recommendations -S/p Actemra and remdesivir -Trend temperature and WBC curve -Follow culture data -Right eye conjunctival redness-> ofloxacin x 5 d. Will obtain eyedrop info daughter that patient takes at home. Nystatin solution ordered. Endo- hyperglycemia; obesity -glargine HS -SSI AC/HS -Avoid hypoglycemia Hospital course to date: 04/17: Patient seen and examined, still uncomfortable with Hypoxic respiratory failure and on oxygen, will continue to steroids therapy, start patient on Remdesivir, ID consulted, Pulmonary consult placed. 04/18: Patient seen and examined, she is currently being changed to High flow NC due to worsening HYPOXIA, will transfer to IMCU, Pulmonary and ID following. Will also give a dose of Lasix today. Monitor Inflammatory markers. 04/19: Patient seen and examined still on high flow due to hypoxia. Appears a bit more comfortable today than yesterday. Cough has decreased in frequency. We will continue high dose Dexameathasone to complete 10 days. continue on Remdesivir 200 mg IV q day x 1 followed by 100 mg IV q day x 4 days -Obtain q48-72h inflammatory markers - ferritin, Ddimer, CRP, LDH Will also give lasix daily for the next 3 days and monitor renal function. Family updated. Continue prone positioning as tolerated 04/20: Patient has some desaturation episodes yesterday was placed on BiPAP. Discussed with ICU team for bed availability for patient to be transferred up. Continue prone position as tolerated. 04/21: Patient remains with profound hypoxia secondary to COVID pneumonia. -Continue steroids -Continue remedesir -S/P Actmera 04/22: Patient remains on steroids and remdesivir. ABG shows persistent hypoxia. We will continue current management additional trial of Lasix for the next few days to see if any improvement. Monitor inflammatory markers as needed. Prognosis is guarded remains on high flow 04/23; patient was treated with remdesivir and Actemra. Continue steroid. Patient's prognosis is guarded. 04/24; patient is on steroid. Patient is currently on BiPAP. Prognosis is guarded. Pulmonary is following. Patient was given Lasix and Ativan. 04/25; continue steroid. Patient was on 40 L of high flow oxygen with saturation was 88%. Pulmonary is following. Prognosis is guarded. Patient was given lasix and ativan. 04/26; patient is on BiPAP and Precedex. Prognosis is guarded. 04/27; patient is on BiPAP and Precedex. Patient will finish steroid today and will start on Solu-Medrol tomorrow. Prognosis is guarded. Blood pressure is better today. Hold Lasix. 04/28 patient is on 100 Fio2 via BIPAP. moderately dyspneic, pulmonary note reviewed, lab results reviewed 04/29 no acute events- see systems review above 04/30 no acute events overnight - on airvo today- TPN started -see systems review above 05-01 no acute events overnight- tolerating airvo- see systems review above 05-02 no acute events overnight; tolerating airvo this AM- see systems review above 05/03: Patient has shown remarkable improvement, weaned down to 3 L and satting 95%. Will attempt to walk test today in anticipation for discharge tomorrow. Discussed with PT team to walk the patient today also. 05/04: Patient appears to have had a decline he was down to 3 L satting 95% with anticipation for discharge today but desatted down to 85% on room air and only 88% on 5 L he is now back at 8 L. I encourage incentive spirometer. While he is on Xarelto and has completed the severe steroids which was subsequently changed to Solu-Medrol I will go ahead and order a CTA to make sure that there is not a failure of Xarelto. We will continue to wean as tolerated discussed with nursing staff at bedside. 05/05/21 Patient is on 40 L of oxygen with 80% FiO2. Patient is encouraged to turn to the side more frequently. Patient is denied any shortness of breath and coughing. No other complaints. Follow the CT scan of the chest. Status post remdesivir and Actemra.Solu-Medrol 40 mg IV every 8 hours. Continue current management. Pulmonary follow-up. 05/06: Patient remains on high flow nasal cannula but states that she feels sl ightly better with the help of translation from her cousin [place]. Patient is still awaiting a bed on the floor. Patient diet is being tolerated now so we will stop TPN will be stopped tonight. 05/07/2021: Patient remains on 40 L/min oxygen at 90% FiO2. Attempt made for CTA chest to rule out pulmonary embolism however patient desatted while at CT. Study was aborted, will reattempt again tomorrow. will follow along with pulphil bertrand. Discussed/updated patient and patient's daughter over phone regarding any active clinical issues. Patient only complaint is oral pain from oral candidiasis noted on exam. Nystatin oral solution ordered. Daughter also voiced concern over patient eye drops which she stated that patient needed to restart from home. However she did not remember name of drops. advised daughter to call our hospital with drop name and dosing and we will restart. 05/08/2021: Started anticoagulation with Lovenox yesterday. Awaiting CTA chest completion. Will attempt to de-escalate oxygen as patient tolerates 05/09/2021: Patient still remains on high flow nasal cannula. Very difficult to wean off. Patient could not get CTA chest on third attempt today. We will cancel for now and reattempt in the future. Continue anticoagulation for presumed pulmonary embolism. Increase steroid dosage to 125 mg every 8 hour per pulmonology recommendations. Subjective Principal diagnosis: Covid-19 Interval history: Patient continues to desaturate when attempting to go to the CT. we will cancel CT. On encounter she is resting with minimal discomfort. She states that her right eye still giving her trouble. Clarified if patient was on drops prior to admission. Patient states that she was not. Objective - Exam Narrative Exam: Constitutional: no acute distress, alert, on hi flow nasal cannula Eyes: non-icteric, right eye erythematous ENT: dry, patchy white plaques noted Neck: supple Effort: normal Ascultation: Bilateral: diminished breath sounds Cardiovascular: regular rate and rhythm Gastrointestinal: normoactive bowel sounds, soft, non-tender, non-distended Integumentary: normal Extremities: no cyanosis, no edema, pink and warm Neurologic: normal mental status, non-focal exam, pupils equal and round, CN II- XII normal Psychiatric: mood appropriate, affect normal - Constitutional Vitals: Vital Signs - 12hr 05/09/21 05/09/21 05/09/21 04:40 08:00 14:00 Temperature 98.3 F Pulse Rate 77 Respiratory 18 Rate Blood Pressure 124/76 O2 Sat by Pulse 95 97 97 Oximetry - Labs CBC & Chem 7: 05/06/21 05:00 05/07/21 04:54 Labs: Abnormal lab results 05/08/21 05/08/21 05/09/21 Range/Units 17:13 23:35 05:20 D-Dimer 1003.87 H (0-234) ng/mlDDU POC Glucose 182 H 198 H (70-105) mg/dL Ferritin (10.0-200.0) ng/mL Lactate Dehydrogenase (91-180) units/L C-Reactive Protein (0.00-1.30) mg/dL 05/09/21 05/09/21 05/09/21 Range/Units 05:20 05:20 06:04 D-Dimer (0-234) ng/mlDDU POC Glucose 159 H (70-105) mg/dL Ferritin 378.7 H (10.0-200.0) ng/mL Lactate Dehydrogenase 558 H (91-180) units/L C-Reactive Protein 2.40 H (0.00-1.30) mg/dL 05/09/21 Range/Units 12:53 D-Dimer (0-234) ng/mlDDU POC Glucose 180 H (70-105) mg/dL Ferritin (10.0-200.0) ng/mL Lactate Dehydrogenase (91-180) units/L C-Reactive Protein (0.00-1.30) mg/dL
[2021-05-10] MEDS: DOCUSATE SODIUM 100 MG CAP PO SCH ×3 (01:23→22:57)
[2021-05-10] MEDS: INSULIN GLARGINE 100 UNITS/ML SUB-Q SCH ×3 (01:23→22:57)
[2021-05-10] MEDS: FAMOTIDINE 20 MG TAB PO SCH ×3 (01:24→22:58)
[2021-05-10] MEDS: SENNOSIDES 8.6 MG TAB PO SCH ×2 (01:24→22:58)
[2021-05-10] MEDS: ZINC SULFATE 220 MG CAP PO SCH ×3 (01:25→22:58)
[2021-05-10] MEDS: methylPREDNISolone Sod Succinate 125 MG/2 ML INJ IV SCH ×4 (01:25→22:58)
[2021-05-10] MEDS: NYSTATIN 500,000 UNIT/5 ML ORAL LIQD PO SCH ×6 (01:31→22:58)
[2021-05-10] MEDS: INSULIN LISPRO 100 UNIT/ML SUB-Q SCH ×4 (01:42→18:02)
[2021-05-10] MEDS: INSULIN REGULAR, HUMAN 100 UNITS/1 ML SUB-Q SCH ×4 (01:43→18:02)
[2021-05-10] MEDS: POLYETHYLENE GLYCOL 3350 17 GM POWDER PO SCH (10:08)
[2021-05-10] MEDS: ASCORBIC ACID 500 MG TAB PO SCH (10:09)
[2021-05-10] MEDS: CHOLECALCIFEROL (VIT D3) 1000 UNIT (25 mcg) TAB PO SCH (10:09)
[2021-05-10] MEDS: ENOXAPARIN 80 MG/0.8 ML INJ SUB-Q SCH ×2 (10:19→18:03)
--- NOTE | 2021-05-10 12:56 | Progress Note ---
Assessment and Plan Assessment and plan: This is a 50-year-old female with GERD, obesity, HLD who presented to emergency department on 04/16 with complaints of "I cannot breathe" stating that she experienced subjective fever, shortness of breath, malaise, body aches, and dry cough over the past week via EMS. In the emergency department patient was found to have a pulse ox of 86% on room air with exertion. CXR revealed bilateral pneumonia. Patient was admitted to the hospital service to the floor with acute hypoxic respiratory failure and because of COVID-19 PUI. Of note patient is unvaccinated for coronavirus. Now subsequently transferred to medical floor from [facility].. Assessment and plan: NEURO- acute pain; anxiety -PRN tylenol -S/p dexamethasone for comfort -Follows commands and RAY -PRN pain meds -Patient is Italian-speaking -Right eye- viral conjunctivitis vs subconjunctival hemorrhage continue to monitor started on ofloxacin ou x 5 days artificial tears has not provided relief Discussed with daughter regarding eyedrops. She states that she will look into finding eyedrops that patient takes at home. -Family updated on plan of care discussed with daughter over phone. CV- ST -SR-ST -S/p pressors now discontinued -MAP goal 65 -Pressure monitor per protocol Resp- acute hypoxic resp failure due to covid19 -S/p BiPAP, now discontinued -Currently on high per nasal cannula at flow rate 40 L/min, FiO2 90% -See RT notes for titration -Albuterol as needed -Pulmonary hygiene -Pulmonology following CTA chest ordered, patient could not tolerate today will reattempt tomorrow. GI- risk for protein gisella malnutrition given inc metabolic demand with resp insufficiency -TPN earlier in hospital admission due to BiPAP however now patient is tolerating p.o. -Patient on a GI soft diet with aspiration precautions -Nutrition following -Bowel regimen: Colace, senna, MiraLAX -PPI - volume overload; hyponatremia -Last 24 hours -125 -Trend BMP -Replace electrolytes as needed -Monitor intake and output Heme- coagulopathy of covid; on AC -Subcu heparin -Trend CBC -Transfuse for hemoglobin less than 7 -Bilateral lower extremity Doppler ultrasounds negative for DVT ; no CTA or VQ scan to rule out PE ID-covid19 pna; sepsis; viral conjunctivitis right eye: Oral candidiasis -zinc/vitC/D -methylpred 125 mg every 8; wean as appropriate -Infectious disease consulted, patient recommendations -S/p Actemra and remdesivir -Trend temperature and WBC curve -Follow culture data -Right eye conjunctival redness-> ofloxacin x 5 d. Will obtain eyedrop info daughter that patient takes at home. Nystatin solution ordered. Endo- hyperglycemia; obesity -glargine HS -SSI AC/HS -Avoid hypoglycemia Hospital course to date: 04/17: Patient seen and examined, still uncomfortable with Hypoxic respiratory failure and on oxygen, will continue to steroids therapy, start patient on Remdesivir, ID consulted, Pulmonary consult placed. 04/18: Patient seen and examined, she is currently being changed to High flow NC due to worsening HYPOXIA, will transfer to IMCU, Pulmonary and ID following. Will also give a dose of Lasix today. Monitor Inflammatory markers. 04/19: Patient seen and examined still on high flow due to hypoxia. Appears a bit more comfortable today than yesterday. Cough has decreased in frequency. We will continue high dose Dexameathasone to complete 10 days. continue on Remd esivir 200 mg IV q day x 1 followed by 100 mg IV q day x 4 days -Obtain q48-72h inflammatory markers - ferritin, Ddimer, CRP, LDH Will also give lasix daily for the next 3 days and monitor renal function. Family updated. Continue prone positioning as tolerated 04/20: Patient has some desaturation episodes yesterday was placed on BiPAP. Discussed with ICU team for bed availability for patient to be transferred up. Continue prone position as tolerated. 04/21: Patient remains with profound hypoxia secondary to COVID pneumonia. -Continue steroids -Continue remedesir -S/P Actmera 04/22: Patient remains on steroids and remdesivir. ABG shows persistent hypoxia. We will continue current management additional trial of Lasix for the next few days to see if any improvement. Monitor inflammatory markers as needed. Prognosis is guarded remains on high flow 04/23; patient was treated with remdesivir and Actemra. Continue steroid. Patient's prognosis is guarded. 04/24; patient is on steroid. Patient is currently on BiPAP. Prognosis is guarded. Pulmonary is following. Patient was given Lasix and Ativan. 04/25; continue steroid. Patient was on 40 L of high flow oxygen with saturation was 88%. Pulmonary is following. Prognosis is guarded. Patient was given lasix and ativan. 04/26; patient is on BiPAP and Precedex. Prognosis is guarded. 04/27; patient is on BiPAP and Precedex. Patient will finish steroid today and will start on Solu-Medrol tomorrow. Prognosis is guarded. Blood pressure is better today. Hold Lasix. 04/28 patient is on 100 Fio2 via BIPAP. moderately dyspneic, pulmonary note reviewed, lab results reviewed 04/29 no acute events- see systems review above 04/30 no acute events overnight - on airvo today- TPN started -see systems review above 05-01 no acute events overnight- tolerating airvo- see systems review above 05-02 no acute events overnight; tolerating airvo this AM- see systems review above 05/03: Patient has shown remarkable improvement, weaned down to 3 L and satting 95%. Will attempt to walk test today in anticipation for discharge tomorrow. Discussed with PT team to walk the patient today also. 05/04: Patient appears to have had a decline he was down to 3 L satting 95% with anticipation for discharge today but desatted down to 85% on room air and only 88% on 5 L he is now back at 8 L. I encourage incentive spirometer. While he i s on Xarelto and has completed the severe steroids which was subsequently changed to Solu-Medrol I will go ahead and order a CTA to make sure that there is not a failure of Xarelto. We will continue to wean as tolerated discussed with nursing staff at bedside. 05/05/21 Patient is on 40 L of oxygen with 80% FiO2. Patient is encouraged to turn to the side more frequently. Patient is denied any shortness of breath and coughing. No other complaints. Follow the CT scan of the chest. Status post remdesivir and Actemra.Solu-Medrol 40 mg IV every 8 hours. Continue current management. Pulmonary follow-up. 05/06: Patient remains on high flow nasal cannula but states that she feels slightly better with the help of translation from her cousin Aspen. Patient is still awaiting a bed on the floor. Patient diet is being tolerated now so we will stop TPN will be stopped tonight. 05/07/2021: Patient remains on 40 L/min oxygen at 90% FiO2. Attempt made for CTA chest to rule out pulmonary embolism however patient desatted while at CT. Study was aborted, will reattempt again tomorrow. will follow along with renetta bertrand. Discussed/updated patient and patient's daughter over phone regarding any active clinical issues. Patient only complaint is oral pain from oral candidiasis noted on exam. Nystatin oral solution ordered. Daughter also voiced concern over patient eye drops which she stated that patient needed to restart from home. However she did not remember name of drops. advised daughter to call our hospital with drop name and dosing and we will restart. 05/08/2021: Started anticoagulation with Lovenox yesterday. Awaiting CTA chest completion. Will attempt to de-escalate oxygen as patient tolerates 05/09/2021: Continues to have high O2 requirements. CTA chest aborted due to patient not being able to tolerate transport to and from scanner. Will follow pulmonology recommendations 05/10/2021: Steroids increased yesterday to 125 mg every 8 hour. Continuing full dose anticoagulation. Respiratory status still remains challenging as it is difficult to wean patient off of hifnc. Minimal improvement compared to last few days. Plan to prone patient today. Otherwise: Some improvement in eye symptoms compared to yesterday. Will order more lubricating eye drops Hospitalist Physical - Physical exam Narrative exam: Constitutional: no acute distress, alert, on hi flow nasal cannula Eyes: non-icteric, right eye erythematous some improvement noted ENT: dry, patchy white plaques noted Neck: supple Effort: normal Ascultation: Bilateral: diminished breath sounds Cardiovascular: regular rate and rhythm Gastrointestinal: normoactive bowel sounds, soft, non-tender, non-distended Integumentary: normal Extremities: no cyanosis, no edema, pink and warm Neurologic: normal mental status, non-focal exam, pupils equal and round, CN II- XII normal Psychiatric: mood appropriate, affect normal - Constitutional Vitals: Temp Pulse Resp BP Pulse Ox 97.7 F 61 16 122/67 93 05/10/21 03:22 05/10/21 03:22 05/10/21 03:22 05/10/21 03:22 05/10/21 10:19 General appearance: Present: mild distress Results - Labs CBC & Chem 7: 05/06/21 05:00 05/07/21 04:54 Labs: Laboratory Last Values WBC 11.0 K/mm3 (4.5-11.0) 05/06/21 05:00 RBC 4.57 M/mm3 (3.65-5.03) 05/06/21 05:00 Hgb 13.9 gm/dl (10.1-14.3) 05/06/21 05:00 Hct 40.7 % (30.3-42.9) 05/06/21 05:00 MCV 89 fl (79-97) 05/06/21 05:00 MCH 31 pg (28-32) 05/06/21 05:00 MCHC 34 % (30-34) 05/06/21 05:00 RDW 16.8 % (13.2-15.2) H 05/06/21 05:00 Plt Count 169 K/mm3 (140-440) 05/06/21 05:00 Lymph % (Auto) 7.7 % (13.4-35.0) L 04/17/21 03:50 [place] % (Auto) 2.5 % (0.0-7.3) 04/17/21 03:50 Eos % (Auto) 0.0 % (0.0-4.3) 04/17/21 03:50 Baso % (Auto) 0.0 % (0.0-1.8) 04/17/21 03:50 Lymph # (Auto) 0.6 K/mm3 (1.2-5.4) L 04/17/21 03:50 [facility] # (Auto) 0.2 K/mm3 (0.0-0.8) 04/17/21 03:50 Eos # (Auto) 0.0 K/mm3 (0.0-0.4) 04/17/21 03:50 Baso # (Auto) 0.0 K/mm3 (0.0-0.1) 04/17/21 03:50 Add Manual Diff Complete 05/06/21 05:00 Total Counted 100 05/06/21 05:00 Seg Neutrophils % 89.8 % (40.0-70.0) H 04/17/21 03:50 Seg Neuts % (Manual) 99.0 % (40.0-70.0) H 05/06/21 05:00 Monocytes % (Manual) 1.0 % (0.0-7.3) 05/06/21 05:00 Nucleated RBC % Not Reportable 05/06/21 05:00 Seg Neutrophils # 6.7 K/mm3 (1.8-7.7) 04/17/21 03:50 Seg Neutrophils # Man 10.9 K/mm3 (1.8-7.7) H 05/06/21 05:00 Band Neutrophils # 0.0 K/mm3 05/06/21 05:00 Lymphocytes # (Manual) 0.0 K/mm3 (1.2-5.4) L 05/06/21 05:00 Abs React Lymphs (Man) 0.0 K/mm3 05/06/21 05:00 Monocytes # (Manual) 0.1 K/mm3 (0.0-0.8) 05/06/21 05:00 Eosinophils # (Manual) 0.0 K/mm3 (0.0-0.4) 05/06/21 05:00 Basophils # (Manual) 0.0 K/mm3 (0.0-0.1) 05/06/21 05:00 Metamyelocytes # 0.0 K/mm3 05/06/21 05:00 Myelocytes # 0.0 K/mm3 05/06/21 05:00 Promyelocytes # 0.0 K/mm3 05/06/21 05:00 Blast Cells # 0.0 K/mm3 05/06/21 05:00 WBC Morphology Not Reportable 05/06/21 05:00 Hypersegmented Neuts Not Reportable 05/06/21 05:00 Hyposegmented Neuts Not Reportable 05/06/21 05:00 Hypogranular Neuts Not Reportable 05/06/21 05:00 Smudge Cells Not Reportable 05/06/21 05:00 Toxic Granulation Not Reportable 05/06/21 05:00 Toxic Vacuolation Not Reportable 05/06/21 05:00 Dohle Bodies Not Reportable 05/06/21 05:00 Pelger-Huet Anomaly Not Reportable 05/06/21 05:00 Janelle Rods Not Reportable 05/06/21 05:00 Platelet Estimate Consistent w auto 05/06/21 05:00 Clumped Platelets Not Reportable 05/06/21 05:00 Plt Clumps, EDTA Not Reportable 05/06/21 05:00 Large Platelets Not Reportable 05/06/21 05:00 Giant Platelets Not Reportable 05/06/21 05:00 Platelet Satelliting Not Reportable 05/06/21 05:00 Plt Morphology Comment Not Reportable 05/06/21 05:00 RBC Morphology Normal 05/06/21 05:00 Dimorphic RBCs Not Reportable 05/06/21 05:00 Polychromasia Not Reportable 05/06/21 05:00 Hypochromasia Not Reportable 05/06/21 05:00 Poikilocytosis Not Reportable 05/06/21 05:00 Anisocytosis Not Reportable 05/06/21 05:00 Microcytosis Not Reportable 05/06/21 05:00 Macrocytosis Not Reportable 05/06/21 05:00 Spherocytes Not Reportable 05/06/21 05:00 Pappenheimer Bodies Not Reportable 05/06/21 05:00 Sickle Cells Not Reportable 05/06/21 05:00 Target Cells Not Reportable 05/06/21 05:00 Tear Drop Cells Not Reportable 05/06/21 05:00 Ovalocytes Not Reportable 05/06/21 05:00 Helmet Cells Not Reportable 05/06/21 05:00 Ahuja-Rochelle Bodies Not Reportable 05/06/21 05:00 [place] Rings Not Reportable 05/06/21 05:00 Shirley Cells Not Reportable 05/06/21 05:00 Bite Cells Not Reportable 05/06/21 05:00 Crenated Cell Not Reportable 05/06/21 05:00 Elliptocytes Not Reportable 05/06/21 05:00 Acanthocytes (Spur) Not Reportable 05/06/21 05:00 Rouleaux Not Reportable 05/06/21 05:00 Hemoglobin C Crystals Not Reportable 05/06/21 05:00 Schistocytes Not Reportable 05/06/21 05:00 Malaria parasites Not Reportable 05/06/21 05:00 Justin Bodies Not Reportable 05/06/21 05:00 Hem Pathologist Commnt No 05/06/21 05:00 D-Dimer 1003.87 ng/mlDDU (0-234) H 05/09/21 05:20 ABG pH 7.229 (7.320-7.450) L 05/03/21 04:49 POC ABG pCO2 45.4 mmHg (32.0-48.0) 05/03/21 04:49 ABG pCO2 42.2 mm Hg 04/29/21 14:23 POC ABG pO2 65.3 mmHg (83-108) L 05/03/21 04:49 ABG pO2 52.6 mm Hg (80.0-90.0) L 04/29/21 14:23 POC ABG HCO3 18.5 05/03/21 04:49 ABG HCO3 26.0 mmol/L (20.0-26.0) 04/29/21 14:23 ABG O2 Saturation 88.4 (0-100) 05/03/21 04:49 ABG O2 Content 18.1 (0.0-44) 04/29/21 14:23 POC ABG Base Excess -8.9 05/03/21 04:49 ABG Base Excess 1.1 mmol/L (-2.0-3.0) 04/29/21 14:23 ABG Hemoglobin 15.8 (12.0-17.5) 05/03/21 04:49 ABG Oxyhemoglobin 87.8 (94-98) L 05/03/21 04:49 ABG Carboxyhemoglobin 1.5 % (0.0-5.0) 04/29/21 14:23 ABG Methemoglobin 0.1 (0.0-1.5) 05/03/21 04:49 ABG Sodium 133.0 mmol/L (136.0-145.0) L 05/03/21 04:49 ABG Potassium 3.9 mmol/L (3.40-4.50) 05/03/21 04:49 ABG Chloride 97.0 mmol/L (98-107) L 05/03/21 04:49 ABG Glucose 403 mg/dL (65-95) H 05/03/21 04:49 Oxyhemoglobin 84.6 % (95.0-99.0) L 04/29/21 14:23 Carboxyhemoglobin 0.6 (0.5-1.5) 05/03/21 04:49 FiO2 100 % 04/29/21 14:23 FiO2 % 100.0 05/03/21 04:49 Sodium 136 mmol/L (137-145) L 05/07/21 04:54 Potassium 4.1 mmol/L (3.6-5.0) 05/07/21 04:54 Chloride 100.6 mmol/L (98-107) 05/07/21 04:54 Carbon Dioxide 25 mmol/L (22-30) 05/07/21 04:54 Anion Gap 15 mmol/L 05/07/21 04:54 BUN 23 mg/dL (7-17) H 05/07/21 04:54 Creatinine 0.3 mg/dL (0.6-1.2) L 05/07/21 04:54 Estimated GFR > 60 ml/min 05/07/21 04:54 BUN/Creatinine Ratio 77 % 05/07/21 04:54 Glucose 110 mg/dL (65-100) H 05/07/21 04:54 POC Glucose 261 mg/dL (70-105) H 05/10/21 10:18 Hemoglobin A1c 8.5 % (4-6) H 04/18/21 07:36 Calcium 8.6 mg/dL (8.4-10.2) 05/07/21 04:54 Phosphorus 3.60 mg/dL (2.5-4.5) 05/06/21 05:00 Magnesium 2.00 mg/dL (1.7-2.3) 05/06/21 05:00 Ferritin 378.7 ng/mL (10.0-200.0) H 05/09/21 05:20 Total Bilirubin 0.30 mg/dL (0.1-1.2) 05/07/21 04:54 AST 25 units/L (5-40) 05/07/21 04:54 ALT 40 units/L (7-56) 05/07/21 04:54 Alkaline Phosphatase 99 units/L (35-129) 05/07/21 04:54 Lactate Dehydrogenase 558 units/L (91-180) H 05/09/21 05:20 C-Reactive Protein 2.40 mg/dL (0.00-1.30) H 05/09/21 05:20 Total Protein 6.2 g/dL (6.3-8.2) L 05/07/21 04:54 Albumin 3.0 g/dL (3.9-5) L 05/07/21 04:54 Albumin/Globulin Ratio 0.9 % 05/07/21 04:54 Triglycerides < 9 mg/dL (2-149) 05/03/21 04:30 Procalcitonin < 0.05 ng/mL (<0.15) 04/17/21 08:26 Arterial Blood Glucose 403 mg/dL (65-95) H 05/03/21 04:49 Arterial Blood Ionized Calcium 4.9 mg/dL (4.6-5.3) 05/03/21 04:49 Coronavirus (PCR) Positive (Negative) A 04/17/21 Unknown Amos/IV: Voiding Method External Female Catheter Active Medications - Current Medications Current Medications: Generic Name Dose Route Start Last Admin Trade Name Freq PRN Reason Stop Dose Admin Acetaminophen 650 mg 04/16/21 14:00 04/27/21 18:58 Acetaminophen 325 Mg Tab PO 650 mg Q4H PRN Administration Pain MILD(1-3)/Fever >100.5/[place] Albuterol 2.5 mg 04/16/21 13:39 04/21/21 20:39 Albuterol 2.5 Mg/3 Ml Nebu IH 2.5 mg Q4HRT PRN Administration Shortness Of Breath Artificial Tears 2 drops 04/28/21 18:15 05/01/21 11:29 Hypromellose 0.5% Ophth Soln 15 Ml OU 2 drops Q4H PRN Administration Dry Eye(s) Ascorbic Acid 500 mg 04/24/21 10:00 05/10/21 10:09 Ascorbic Acid 500 Mg Tab PO 500 mg QDAY TUTU Administration Cholecalciferol 1,000 unit 04/17/21 10:00 05/10/21 10:09 Cholecalciferol (Vit D3) 1000 Unit (25 Mcg) Tab PO 1,000 unit QDAY TUTU Administration Dextrose 50 ml 04/18/21 07:30 04/28/21 09:59 Dextrose 50% In Water (25gm) 50 Ml Syringe IV 50 ml Q30MIN PRN Administration Hypoglycemia Protocol Docusate Sodium 100 mg 04/30/21 10:00 05/10/21 10:09 Docusate Sodium 100 Mg Cap PO 100 mg BID TUTU Administration Enoxaparin Sodium 70 mg 05/08/21 06:00 05/10/21 10:19 Enoxaparin 80 Mg/0.8 Ml Inj SUB-Q 70 mg Q12H TUTU Administration Famotidine 20 mg 05/07/21 22:00 05/10/21 10:09 Famotidine 20 Mg Tab PO 20 mg BID TUTU Administration Potassium Chloride 20 meq in 100 mls @ 100 mls/hr 04/30/21 09:25 Kcl 20meq/100ml IV Q1H PRN Potassium 3-3.5 mEq/L Potassium Chloride 20 meq in 100 mls @ 100 mls/hr 04/30/21 09:25 Kcl 20meq/100ml IV Q1H PRN Potassium 2.6-2.9 mEq/L Magnesium Sulfate 1 gm/ Sodium 52 mls @ 26 mls/hr 04/30/21 09:25 Chloride IV Q2H PRN Magnesium level 1.8-2 mg/dL Magnesium Sulfate 2 gm in 50 mls @ 25 mls/hr 04/30/21 09:25 Magnesium Sulfate 2gm/50ml IV Q2H PRN Magnesium level 1.5-1.7 mg/dL Magnesium Sulfate 4 gm in 100 mls @ 25 mls/hr 04/30/21 09:25 Magnesium Sulfate 4gm/100ml IV Q4H PRN Magnesium level < 1.4 mg/dL Sodium Phosphate 15 mmol/ 155 mls @ 40 mls/hr 04/30/21 09:25 Sodium Chloride IV Q4H PRN Phosphorous level 1.2-2.5 mg/d Sodium Phosphate 30 mmol/ 260 mls @ 40 mls/hr 04/30/21 09:25 Sodium Chloride IV Q6H PRN Phosphorous level < 1.2 mg/dL Insulin Glargine 25 units 05/04/21 11:05 05/10/21 10:23 Insulin Glargine 100 Units/Ml SUB-Q 25 units DAILY TUTU Administration Insulin Glargine 10 units 05/06/21 22:00 05/10/21 01:23 Insulin Glargine 100 Units/Ml SUB-Q 10 units QHS TUTU Administration Insulin Human Lispro 0 unit 05/01/21 12:00 05/10/21 11:51 Insulin Lispro 100 Unit/Ml SUB-Q 6 unit Q6HR TUTU Administration Protocol Insulin Human Regular 6 units 05/07/21 12:00 05/10/21 11:50 Insulin Regular, Human 100 Units/1 Ml SUB-Q 6 units Q6HR TUTU Administration Lorazepam 1 mg 05/02/21 08:56 05/04/21 22:13 Lorazepam 2 Mg/Ml Vial IV 1 mg Q4H PRN Administration Anxiety Methylprednisolone Sodium Succinate 125 mg 05/09/21 16:13 05/10/21 06:59 Methylprednisolone Sod Succinate 125 Mg/2 Ml Inj IV 125 mg Q8HR TUTU Administration Nystatin 500,000 unit 05/07/21 18:00 05/10/21 10:19 Nystatin 500,000 Unit/5 Ml Oral Liqd PO 500,000 unit QID TUTU Administration Ondansetron HCl 4 mg 04/16/21 14:00 05/03/21 13:19 Ondansetron 4 Mg/2 Ml Inj IV 4 mg Q8H PRN Administration Nausea And Vomiting Polyethylene Glycol 17 gm 05/02/21 16:00 05/10/21 10:08 Polyethylene Glycol 3350 17 Gm Powder PO 17 gm QDAY TUTU Administration Senna 17.2 mg 05/02/21 22:00 05/10/21 01:24 Sennosides 8.6 Mg Tab PO 17.2 mg QHS TUTU Administration Sodium Chloride 10 ml 04/16/21 22:00 05/10/21 10:09 Sodium Chloride 0.9% 10 Ml Flush Syringe IV 10 ml BID TUTU Administration Sodium Chloride 10 ml 04/16/21 13:39 Sodium Chloride 0.9% 10 Ml Flush Syringe IV PRN PRN LINE FLUSH Zinc Sulfate 220 mg 04/16/21 22:00 05/10/21 10:09 Zinc Sulfate 220 Mg Cap PO 220 mg BID TUTU Administration Nutrition/Malnutrition Assess - Dietary Evaluation Nutrition/Malnutrition Findings: Nutrition Notes Start: 04/23/21 07:41 Freq: Status: Active Protocol: Document 05/07/21 10:58 (Rec: 05/07/21 11:08 [id number]) Nutrition Notes Initial or Follow up Reassessment Current Diagnosis Respiratory Failure Other Pertinent Diagnosis oral thrush, COVID-19 pneu Current Diet GI soft Labs/Tests Na 136 BG 110-249 Pertinent Medications Miralax Height 4 ft 11.84 in Weight 68.1 kg [place] Body Weight (kg) 45.09 BMI 29.5 Weight Status Overweight Subjective/Other Information Pt eating 75% of meals and tolerating. Unsure of ONS intakes. Percent of energy/protein needs met: 88%/89% Burn Absent Trauma Absent Current % PO Good (75-100%) Minimum of two criteria Yes Energy Intake (severe) < or equal to 50% Estimated Energy Requirement > or equal to 5 days Interpretation of Weight Loss (severe) >5% in 1 month #2 Nutrition Diagnosis Malnutrition Diagnosis Progress(for reassessment Continues documentation) #1 Nutrition Diagnosis Inadequate oral intake Diagnosis Progress(for reassessment Continues documentation) Is patient on ventilator? No Is Patient Ambulatory and/or Out of Bed No REE-([facility]-confined to bed) 1473.888 Kcal/Kg value to use for calculation 25 Approximate Energy Requirements Using 1703 kcal/Kg Calculation [facility] or Additional Notes Pro needs 1.2-2g/k-137g/ day Fluid needs 1ml/kcal Nutrition Intervention Add Supplement/Snack (indicate name/kcal Glucerna BID /protein ) Provides kCal: 440 Provides Protein (gm) 20 Goal #1 Continue to meet at least 75% of protein and energy needs Anticipated Discharge Needs: Consistent CHO Follow-Up By: 05/10/21 Additional Comments F/u: stable intakes
--- NOTE | 2021-05-10 14:07 | Progress Note ---
Assessment and Plan 50 y/o female with acute respiratory failure secondary to COVID19 pneumonia. 05/10/21: Will continue this dose of steroid at least through the weekend and assess for improvement. will speak with RT about aggressive weaning. Full dose anticoagulation continues. Very very guarded to poor prognosis. 05/09/21: Going to consider increasing steroids to 125q8, maybe as early as tomorrow. continue full dose anticoagulation. 05/08/21: Continue anticoagulation and steroids. Prone if possible. Anxiety control. No objection to CTA if this can happen. Very very guarded prognosis. 05/07/21: Spoke with IMS, not opposed to full dose anticoagulation. If patient goes back on NRB HFNC combo may need to consider restarting PPN again. E ncourage proning. Guarded prognosis. 05/06/21: Continue to wean FiO2 and flow for sats >88%. Tolerating diet now so will stop PPN. Continue anxiety control. Continue IV steroids. Would not object to transfer to [facility] floor if bed available. Not sure why she was titrated back up to 100% from 85 as all sats documented in the RT's notes were acceptable. Same for under vital signs as well. 05/03/21: Set back last night from yesterday. Continue bipap therapy for now and attempt HFNC maybe later this afternoon. Continue to use PRN ativan but may need to schedule as she likely took off mask from anxiety. Continue IV steroids. Hold on transfer to COVID Floor. 05/02/21: Continue to wean FiO2 as tolerated for sats >88%. Will continue bipap at night. Patient has no funding so not a candidate for LTACH. Given that she has been stable and not requiring the combo of HFNC and NRB, will consider moving to COVID floor. 05/01/21: Continue to wean FiO2 for sats >88%. A sat of 90 is more than acceptable and oxygen should not be increased for this unless patient desats and remains at a sat lower than 88. Bipap at night to give some form of relief and HFNC during the day. Currently on just this alone which is improvement. Ok with daily diuresis but must monitor renal function and BP closely. She was over diuresed last week and we ended up giving fluid back. Prognosis remains guarded. 04/30/21: Will start CLinimix today for nutritional support, without electrolytes. Check labs in am. Prone if able. Continue precedx for anxiety. Very very guarded prognosis. Attempting our best to not intubate. 04/29/21: Continue precedex. Continue IV solumedrol. Prone if able. Guarded prognosis. 04/28/21: Continue Precedex. Picc team attempting to place line now. Stable on Bipap. Ordered steroids IV solumedrol to start today. Prognosis remains guarded, still at very high risk for intubation. 04/27/21: Hypotension improving/improved. Hold on any further lasix dosing. Continue precedex to help with anxeity. later today please attempt HFNC with NRB if needed. Attempt to feed if possible. Steroids end today, please order solumedrol 40q8 to start tomorrow (04/28/21). guarded prognosis. 04/26/21: Hypotension today, most likely from precedex use and diuresis that I did the last several days. Will bolus again today. Consider midodrine if BP does not respond. 04/25/21: Lasix again today. Keep PRN ativan for now. Hold on precedex for now. Guarded prognosis. Labs ordered for tomorrow. 04/24/21: Lasix today. Will also start patient on low dose PRN ativan. If this does not help will then try precedex. Guarded prognosis. 04/23/21: Prone as tolerated. No lasix today. Continue decadron. Guarded prognosis. High risk for intubation and high mortality with intubation. 04/19/21: Prone as tolerated during the day and sleep prone at night. Continue IV remdesivir and steroids. Did get actemra. Guarded prognosis. 1. Daily net negative state 2. Prone if possible 3. IV remdesivir. 4. Should be a candidate for Actemra 5. IV steroids 6. Guarded Prognosis Subjective Date of service: 05/10/21 Principal diagnosis: Covid-19 Interval history: Back on HFNC with NRB combo. Sats still marginal. On high dose steroids. Objective Vital Signs - 12hr 05/10/21 05/10/21 05/10/21 03:22 10:19 10:37 Temperature 97.7 F 98.8 F Pulse Rate 61 102 H Respiratory 16 24 Rate Blood Pressure 122/67 126/82 O2 Sat by Pulse 99 93 93 Oximetry Constitutional: no acute distress, alert Eyes: non-icteric ENT: oropharynx moist Neck: supple Effort: normal Ascultation: Bilateral: diminished breath sounds Cardiovascular: regular rate and rhythm Gastrointestinal: normoactive bowel sounds, soft, non-tender, non-distended Integumentary: normal Extremities: no cyanosis, no edema, pink and warm Neurologic: normal mental status, non-focal exam, pupils equal and round, CN II- XII normal Psychiatric: mood appropriate, affect normal CBC and BMP: 05/06/21 05:00 05/07/21 04:54 ABG, PT/INR, D-dimer: ABG ABG pH 7.229 (7.320-7.450) L 05/03/21 04:49 POC ABG pCO2 45.4 mmHg (32.0-48.0) 05/03/21 04:49 ABG pCO2 42.2 mm Hg 04/29/21 14:23 POC ABG pO2 65.3 mmHg (83-108) L 05/03/21 04:49 ABG pO2 52.6 mm Hg (80.0-90.0) L 04/29/21 14:23 POC ABG HCO3 18.5 05/03/21 04:49 ABG O2 Saturation 88.4 (0-100) 05/03/21 04:49 PT/INR, D-dimer D-Dimer 1003.87 ng/mlDDU (0-234) H 05/09/21 05:20 Abnormal lab findings: Abnormal Labs 04/16/21 04/16/21 04/16/21 11:42 11:42 11:42 WBC MCHC RDW 16.1 H Lymph % (Auto) 7.8 L Lymph # (Auto) 0.8 L Seg Neutrophils % 87.7 H Seg Neuts % (Manual) Seg Neutrophils # 8.5 H Seg Neutrophils # Man Lymphocytes # (Manual) D-Dimer 338.70 H ABG pH POC ABG pO2 ABG pO2 ABG O2 Saturation ABG Oxyhemoglobin ABG Sodium ABG Chloride ABG Glucose Oxyhemoglobin Carboxyhemoglobin Sodium Potassium Chloride Carbon Dioxide BUN Creatinine Glucose 194 H POC Glucose Hemoglobin A1c Ferritin AST ALT Alkaline Phosphatase Lactate Dehydrogenase C-Reactive Protein Total Protein 8.4 H Albumin 3.8 L Arterial Blood Glucose Coronavirus (PCR) 04/16/21 04/16/21 04/17/21 11:42 11:42 03:50 WBC MCHC RDW 16.0 H Lymph % (Auto) 7.7 L Lymph # (Auto) 0.6 L Seg Neutrophils % 89.8 H Seg Neuts % (Manual) Seg Neutrophils # Seg Neutrophils # Man Lymphocytes # (Manual) D-Dimer ABG pH POC ABG pO2 ABG pO2 ABG O2 Saturation ABG Oxyhemoglobin ABG Sodium ABG Chloride ABG Glucose Oxyhemoglobin Carboxyhemoglobin Sodium Potassium Chloride Carbon Dioxide BUN Creatinine Glucose 195 H POC Glucose Hemoglobin A1c Ferritin 254.3 H AST ALT Alkaline Phosphatase Lactate Dehydrogenase 359 H C-Reactive Protein 15.20 H Total Protein Albumin Arterial Blood Glucose Coronavirus (PCR) 04/17/21 04/17/21 04/17/21 03:50 08:26 08:26 WBC MCHC RDW Lymph % (Auto) Lymph # (Auto) Seg Neutrophils % Seg Neuts % (Manual) Seg Neutrophils # Seg Neutrophils # Man Lymphocytes # (Manual) D-Dimer 262.48 H ABG pH POC ABG pO2 ABG pO2 ABG O2 Saturation ABG Oxyhemoglobin ABG Sodium ABG Chloride ABG Glucose Oxyhemoglobin Carboxyhemoglobin Sodium Potassium Chloride Carbon Dioxide BUN 20 H Creatinine 0.5 L Glucose 249 H 225 H POC Glucose Hemoglobin A1c Ferritin AST ALT Alkaline Phosphatase Lactate Dehydrogenase 338 H C-Reactive Protein 17.20 H Total Protein Albumin 3.2 L Arterial Blood Glucose Coronavirus (PCR) 04/17/21 04/17/21 04/17/21 08:26 15:04 Unknown WBC MCHC RDW Lymph % (Auto) Lymph # (Auto) Seg Neutrophils % Seg Neuts % (Manual) Seg Neutrophils # Seg Neutrophils # Man Lymphocytes # (Manual) D-Dimer ABG pH POC ABG pO2 ABG pO2 ABG O2 Saturation ABG Oxyhemoglobin ABG Sodium ABG Chloride ABG Glucose Oxyhemoglobin Carboxyhemoglobin Sodium Potassium Chloride Carbon Dioxide BUN 20 H Creatinine 0.5 L Glucose 246 H POC Glucose Hemoglobin A1c Ferritin 392.0 H AST ALT Alkaline Phosphatase Lactate Dehydrogenase C-Reactive Protein Total Protein 8.3 H Albumin 3.1 L Arterial Blood Glucose Coronavirus (PCR) Positive A 04/18/21 04/18/21 04/18/21 05:06 05:06 07:36 WBC 11.6 H MCHC RDW 16.1 H Lymph % (Auto) Lymph # (Auto) Seg Neutrophils % Seg Neuts % (Manual) Seg Neutrophils # Seg Neutrophils # Man Lymphocytes # (Manual) D-Dimer ABG pH POC ABG pO2 ABG pO2 ABG O2 Saturation ABG Oxyhemoglobin ABG Sodium ABG Chloride ABG Glucose Oxyhemoglobin Carboxyhemoglobin Sodium Potassium 5.2 H Chloride Carbon Dioxide BUN 22 H Creatinine 0.5 L Glucose 315 H POC Glucose Hemoglobin A1c 8.5 H Ferritin AST ALT Alkaline Phosphatase Lactate Dehydrogenase C-Reactive Protein Total Protein Albumin 3.3 L Arterial Blood Glucose Coronavirus (PCR) 04/18/21 04/18/21 04/18/21 11:59 16:43 23:24 WBC MCHC RDW Lymph % (Auto) Lymph # (Auto) Seg Neutrophils % Seg Neuts % (Manual) Seg Neutrophils # Seg Neutrophils # Man Lymphocytes # (Manual) D-Dimer ABG pH POC ABG pO2 ABG pO2 ABG O2 Saturation ABG Oxyhemoglobin ABG Sodium ABG Chloride ABG Glucose Oxyhemoglobin Carboxyhemoglobin Sodium Potassium Chloride Carbon Dioxide BUN Creatinine Glucose POC Glucose 284 H 273 H 290 H Hemoglobin A1c Ferritin AST ALT Alkaline Phosphatase Lactate Dehydrogenase C-Reactive Protein Total Protein Albumin Arterial Blood Glucose Coronavirus (PCR) 04/19/21 04/19/21 04/19/21 04:19 04:19 08:10 WBC MCHC RDW 15.7 H Lymph % (Auto) Lymph # (Auto) Seg Neutrophils % Seg Neuts % (Manual) Seg Neutrophils # Seg Neutrophils # Man Lymphocytes # (Manual) D-Dimer ABG pH POC ABG pO2 ABG pO2 ABG O2 Saturation ABG Oxyhemoglobin ABG Sodium ABG Chloride ABG Glucose Oxyhemoglobin Carboxyhemoglobin Sodium Potassium Chloride Carbon Dioxide BUN 27 H Creatinine 0.4 L Glucose 184 H POC Glucose 194 H Hemoglobin A1c Ferritin AST ALT Alkaline Phosphatase Lactate Dehydrogenase C-Reactive Protein Total Protein Albumin 3.1 L Arterial Blood Glucose Coronavirus (PCR) 04/19/21 04/19/21 04/19/21 11:38 16:25 22:04 WBC MCHC RDW Lymph % (Auto) Lymph # (Auto) Seg Neutrophils % Seg Neuts % (Manual) Seg Neutrophils # Seg Neutrophils # Man Lymphocytes # (Manual) D-Dimer ABG pH POC ABG pO2 ABG pO2 ABG O2 Saturation ABG Oxyhemoglobin ABG Sodium ABG Chloride ABG Glucose Oxyhemoglobin Carboxyhemoglobin Sodium Potassium Chloride Carbon Dioxide BUN Creatinine Glucose POC Glucose 224 H 297 H 251 H Hemoglobin A1c Ferritin AST ALT Alkaline Phosphatase Lactate Dehydrogenase C-Reactive Protein Total Protein Albumin Arterial Blood Glucose Coronavirus (PCR) 04/20/21 04/20/21 04/20/21 05:28 08:43 16:21 WBC MCHC RDW Lymph % (Auto) Lymph # (Auto) Seg Neutrophils % Seg Neuts % (Manual) Seg Neutrophils # Seg Neutrophils # Man Lymphocytes # (Manual) D-Dimer ABG pH POC ABG pO2 ABG pO2 ABG O2 Saturation ABG Oxyhemoglobin ABG Sodium ABG Chloride ABG Glucose Oxyhemoglobin Carboxyhemoglobin Sodium Potassium Chloride Carbon Dioxide BUN 27 H Creatinine Glucose 192 H POC Glucose 173 H 253 H Hemoglobin A1c Ferritin AST ALT Alkaline Phosphatase Lactate Dehydrogenase C-Reactive Protein Total Protein Albumin 3.0 L Arterial Blood Glucose Coronavirus (PCR) 04/21/21 04/21/21 04/21/21 07:58 12:05 16:08 WBC MCHC RDW Lymph % (Auto) Lymph # (Auto) Seg Neutrophils % Seg Neuts % (Manual) Seg Neutrophils # Seg Neutrophils # Man Lymphocytes # (Manual) D-Dimer ABG pH POC ABG pO2 ABG pO2 ABG O2 Saturation ABG Oxyhemoglobin ABG Sodium ABG Chloride ABG Glucose Oxyhemoglobin Carboxyhemoglobin Sodium Potassium Chloride Carbon Dioxide BUN Creatinine Glucose POC Glucose 140 H 252 H 214 H Hemoglobin A1c Ferritin AST ALT Alkaline Phosphatase Lactate Dehydrogenase C-Reactive Protein Total Protein Albumin Arterial Blood Glucose Coronavirus (PCR) 04/21/21 04/22/21 04/22/21 21:42 08:37 12:01 WBC MCHC RDW Lymph % (Auto) Lymph # (Auto) Seg Neutrophils % Seg Neuts % (Manual) Seg Neutrophils # Seg Neutrophils # Man Lymphocytes # (Manual) D-Dimer ABG pH 7.457 H POC ABG pO2 49.4 L ABG pO2 ABG O2 Saturation ABG Oxyhemoglobin 85.6 L ABG Sodium ABG Chloride ABG Glucose 121 H Oxyhemoglobin Carboxyhemoglobin 0.3 L Sodium Potassium Chloride Carbon Dioxide BUN Creatinine Glucose POC Glucose 162 H 227 H Hemoglobin A1c Ferritin AST ALT Alkaline Phosphatase Lactate Dehydrogenase C-Reactive Protein Total Protein Albumin Arterial Blood Glucose 121 H Coronavirus (PCR) 04/22/21 04/22/21 04/23/21 16:26 22:23 04:52 WBC MCHC RDW 15.7 H Lymph % (Auto) Lymph # (Auto) Seg Neutrophils % Seg Neuts % (Manual) Seg Neutrophils # Seg Neutrophils # Man Lymphocytes # (Manual) D-Dimer ABG pH POC ABG pO2 ABG pO2 ABG O2 Saturation ABG Oxyhemoglobin ABG Sodium ABG Chloride ABG Glucose Oxyhemoglobin Carboxyhemoglobin Sodium Potassium Chloride Carbon Dioxide BUN Creatinine Glucose POC Glucose 200 H 136 H Hemoglobin A1c Ferritin AST ALT Alkaline Phosphatase Lactate Dehydrogenase C-Reactive Protein Total Protein Albumin Arterial Blood Glucose Coronavirus (PCR) 04/23/21 04/23/21 04/23/21 04:52 12:06 17:41 WBC MCHC RDW Lymph % (Auto) Lymph # (Auto) Seg Neutrophils % Seg Neuts % (Manual) Seg Neutrophils # Seg Neutrophils # Man Lymphocytes # (Manual) D-Dimer ABG pH POC ABG pO2 ABG pO2 ABG O2 Saturation ABG Oxyhemoglobin ABG Sodium ABG Chloride ABG Glucose Oxyhemoglobin Carboxyhemoglobin Sodium 136 L Potassium Chloride 97.7 L Carbon Dioxide BUN 23 H Creatinine Glucose 101 H POC Glucose 202 H 169 H Hemoglobin A1c Ferritin AST 46 H ALT Alkaline Phosphatase Lactate Dehydrogenase C-Reactive Protein Total Protein Albumin 3.3 L Arterial Blood Glucose Coronavirus (PCR) 04/23/21 04/24/21 04/24/21 23:08 05:17 08:38 WBC MCHC RDW Lymph % (Auto) Lymph # (Auto) Seg Neutrophils % Seg Neuts % (Manual) Seg Neutrophils # Seg Neutrophils # Man Lymphocytes # (Manual) D-Dimer ABG pH POC ABG pO2 ABG pO2 ABG O2 Saturation ABG Oxyhemoglobin ABG Sodium ABG Chloride ABG Glucose Oxyhemoglobin Carboxyhemoglobin Sodium Potassium Chloride Carbon Dioxide BUN Creatinine Glucose POC Glucose 111 H 108 H 126 H Hemoglobin A1c Ferritin AST ALT Alkaline Phosphatase Lactate Dehydrogenase C-Reactive Protein Total Protein Albumin Arterial Blood Glucose Coronavirus (PCR) 04/24/21 04/24/21 04/24/21 11:54 17:57 21:23 WBC MCHC RDW Lymph % (Auto) Lymph # (Auto) Seg Neutrophils % Seg Neuts % (Manual) Seg Neutrophils # Seg Neutrophils # Man Lymphocytes # (Manual) D-Dimer ABG pH POC ABG pO2 ABG pO2 ABG O2 Saturation ABG Oxyhemoglobin ABG Sodium ABG Chloride ABG Glucose Oxyhemoglobin Carboxyhemoglobin Sodium Potassium Chloride Carbon Dioxide BUN Creatinine Glucose POC Glucose 147 H 177 H 138 H Hemoglobin A1c Ferritin AST ALT Alkaline Phosphatase Lactate Dehydrogenase C-Reactive Protein Total Protein Albumin Arterial Blood Glucose Coronavirus (PCR) 04/25/21 04/25/21 04/25/21 07:06 11:23 15:43 WBC MCHC RDW Lymph % (Auto) Lymph # (Auto) Seg Neutrophils % Seg Neuts % (Manual) Seg Neutrophils # Seg Neutrophils # Man Lymphocytes # (Manual) D-Dimer ABG pH POC ABG pO2 ABG pO2 ABG O2 Saturation ABG Oxyhemoglobin ABG Sodium ABG Chloride ABG Glucose Oxyhemoglobin Carboxyhemoglobin Sodium Potassium Chloride Carbon Dioxide BUN Creatinine Glucose POC Glucose 147 H 169 H 227 H Hemoglobin A1c Ferritin AST ALT Alkaline Phosphatase Lactate Dehydrogenase C-Reactive Protein Total Protein Albumin Arterial Blood Glucose Coronavirus (PCR) 04/25/21 04/26/21 04/26/21 21:22 02:45 05:15 WBC MCHC RDW Lymph % (Auto) Lymph # (Auto) Seg Neutrophils % Seg Neuts % (Manual) Seg Neutrophils # Seg Neutrophils # Man Lymphocytes # (Manual) D-Dimer ABG pH POC ABG pO2 70.7 L ABG pO2 ABG O2 Saturation ABG Oxyhemoglobin 93.0 L ABG Sodium 132.7 L ABG Chloride ABG Glucose 115 H Oxyhemoglobin Carboxyhemoglobin Sodium Potassium Chloride 95.8 L Carbon Dioxide 32 H BUN 20 H Creatinine Glucose 102 H POC Glucose 196 H Hemoglobin A1c Ferritin AST ALT Alkaline Phosphatase Lactate Dehydrogenase C-Reactive Protein Total Protein Albumin Arterial Blood Glucose 115 H Coronavirus (PCR) 04/26/21 04/26/21 04/26/21 11:49 16:09 21:07 WBC MCHC RDW Lymph % (Auto) Lymph # (Auto) Seg Neutrophils % Seg Neuts % (Manual) Seg Neutrophils # Seg Neutrophils # Man Lymphocytes # (Manual) D-Dimer ABG pH POC ABG pO2 ABG pO2 ABG O2 Saturation ABG Oxyhemoglobin ABG Sodium ABG Chloride ABG Glucose Oxyhemoglobin Carboxyhemoglobin Sodium Potassium Chloride Carbon Dioxide BUN Creatinine Glucose POC Glucose 114 H 188 H 136 H Hemoglobin A1c Ferritin AST ALT Alkaline Phosphatase Lactate Dehydrogenase C-Reactive Protein Total Protein Albumin Arterial Blood Glucose Coronavirus (PCR) 04/27/21 04/27/21 04/28/21 17:34 22:12 08:26 WBC MCHC RDW Lymph % (Auto) Lymph # (Auto) Seg Neutrophils % Seg Neuts % (Manual) Seg Neutrophils # Seg Neutrophils # Man Lymphocytes # (Manual) D-Dimer ABG pH POC ABG pO2 ABG pO2 ABG O2 Saturation ABG Oxyhemoglobin ABG Sodium ABG Chloride ABG Glucose Oxyhemoglobin Carboxyhemoglobin Sodium Potassium Chloride Carbon Dioxide BUN Creatinine Glucose POC Glucose 128 H 159 H 69 L Hemoglobin A1c Ferritin AST ALT Alkaline Phosphatase Lactate Dehydrogenase C-Reactive Protein Total Protein Albumin Arterial Blood Glucose Coronavirus (PCR) 04/28/21 04/28/21 04/29/21 12:22 21:11 06:05 WBC MCHC RDW Lymph % (Auto) Lymph # (Auto) Seg Neutrophils % Seg Neuts % (Manual) Seg Neutrophils # Seg Neutrophils # Man Lymphocytes # (Manual) D-Dimer ABG pH POC ABG pO2 ABG pO2 ABG O2 Saturation ABG Oxyhemoglobin ABG Sodium ABG Chloride ABG Glucose Oxyhemoglobin Carboxyhemoglobin Sodium 132 L Potassium Chloride 94.4 L Carbon Dioxide BUN Creatinine 0.2 L D Glucose 140 H POC Glucose 141 H 171 H Hemoglobin A1c Ferritin AST ALT Alkaline Phosphatase Lactate Dehydrogenase C-Reactive Protein Total Protein Albumin Arterial Blood Glucose Coronavirus (PCR) 04/29/21 04/29/21 04/29/21 06:05 07:24 11:36 WBC MCHC 35 H RDW 15.9 H Lymph % (Auto) Lymph # (Auto) Seg Neutrophils % Seg Neuts % (Manual) Seg Neutrophils # Seg Neutrophils # Man Lymphocytes # (Manual) D-Dimer ABG pH POC ABG pO2 ABG pO2 ABG O2 Saturation ABG Oxyhemoglobin ABG Sodium ABG Chloride ABG Glucose Oxyhemoglobin Carboxyhemoglobin Sodium Potassium Chloride Carbon Dioxide BUN Creatinine Glucose POC Glucose 141 H 220 H Hemoglobin A1c Ferritin AST ALT Alkaline Phosphatase Lactate Dehydrogenase C-Reactive Protein Total Protein Albumin Arterial Blood Glucose Coronavirus (PCR) 04/29/21 04/29/21 04/29/21 14:23 15:30 17:06 WBC MCHC RDW Lymph % (Auto) Lymph # (Auto) Seg Neutrophils % Seg Neuts % (Manual) Seg Neutrophils # Seg Neutrophils # Man Lymphocytes # (Manual) D-Dimer ABG pH POC ABG pO2 ABG pO2 52.6 L ABG O2 Saturation 86.4 L ABG Oxyhemoglobin ABG Sodium ABG Chloride ABG Glucose Oxyhemoglobin 84.6 L Carboxyhemoglobin Sodium Potassium Chloride Carbon Dioxide BUN Creatinine Glucose POC Glucose 173 H 158 H Hemoglobin A1c Ferritin AST ALT Alkaline Phosphatase Lactate Dehydrogenase C-Reactive Protein Total Protein Albumin Arterial Blood Glucose Coronavirus (PCR) 04/29/21 04/30/21 04/30/21 21:27 07:16 08:00 WBC MCHC RDW 16.1 H Lymph % (Auto) Lymph # (Auto) Seg Neutrophils % Seg Neuts % (Manual) Seg Neutrophils # Seg Neutrophils # Man Lymphocytes # (Manual) D-Dimer ABG pH POC ABG pO2 ABG pO2 ABG O2 Saturation ABG Oxyhemoglobin ABG Sodium ABG Chloride ABG Glucose Oxyhemoglobin Carboxyhemoglobin Sodium Potassium Chloride Carbon Dioxide BUN Creatinine Glucose POC Glucose 244 H 175 H Hemoglobin A1c Ferritin AST ALT Alkaline Phosphatase Lactate Dehydrogenase C-Reactive Protein Total Protein Albumin Arterial Blood Glucose Coronavirus (PCR) 04/30/21 04/30/21 04/30/21 08:00 08:00 11:03 WBC MCHC RDW Lymph % (Auto) Lymph # (Auto) Seg Neutrophils % Seg Neuts % (Manual) Seg Neutrophils # Seg Neutrophils # Man Lymphocytes # (Manual) D-Dimer 1796.87 H ABG pH POC ABG pO2 ABG pO2 ABG O2 Saturation ABG Oxyhemoglobin ABG Sodium ABG Chloride ABG Glucose Oxyhemoglobin Carboxyhemoglobin Sodium 135 L Potassium Chloride 96.3 L Carbon Dioxide BUN Creatinine 0.2 L Glucose 153 H POC Glucose 183 H Hemoglobin A1c Ferritin AST 41 H ALT 76 H Alkaline Phosphatase 160 H Lactate Dehydrogenase 522 H C-Reactive Protein Total Protein 6.1 L Albumin 3.1 L Arterial Blood Glucose Coronavirus (PCR) 04/30/21 04/30/21 05/01/21 17:04 22:17 05:39 WBC MCHC RDW Lymph % (Auto) Lymph # (Auto) Seg Neutrophils % Seg Neuts % (Manual) Seg Neutrophils # Seg Neutrophils # Man Lymphocytes # (Manual) D-Dimer ABG pH POC ABG pO2 ABG pO2 ABG O2 Saturation ABG Oxyhemoglobin ABG Sodium ABG Chloride ABG Glucose Oxyhemoglobin Carboxyhemoglobin Sodium 133 L Potassium Chloride 92.1 L Carbon Dioxide BUN 24 H Creatinine 0.4 L D Glucose 269 H POC Glucose 167 H 208 H Hemoglobin A1c Ferritin AST ALT 66 H Alkaline Phosphatase 142 H Lactate Dehydrogenase C-Reactive Protein Total Protein Albumin 3.2 L Arterial Blood Glucose Coronavirus (PCR) 05/01/21 05/01/21 05/01/21 05:39 05:39 07:45 WBC MCHC RDW 16.0 H Lymph % (Auto) Lymph # (Auto) Seg Neutrophils % Seg Neuts % (Manual) Seg Neutrophils # Seg Neutrophils # Man Lymphocytes # (Manual) D-Dimer 3984.95 H ABG pH POC ABG pO2 ABG pO2 ABG O2 Saturation ABG Oxyhemoglobin ABG Sodium ABG Chloride ABG Glucose Oxyhemoglobin Carboxyhemoglobin Sodium Potassium Chloride Carbon Dioxide BUN Creatinine Glucose POC Glucose 229 H Hemoglobin A1c Ferritin AST ALT Alkaline Phosphatase Lactate Dehydrogenase C-Reactive Protein Total Protein Albumin Arterial Blood Glucose Coronavirus (PCR) 05/01/21 05/01/21 05/01/21 12:10 15:46 21:06 WBC MCHC RDW Lymph % (Auto) Lymph # (Auto) Seg Neutrophils % Seg Neuts % (Manual) Seg Neutrophils # Seg Neutrophils # Man Lymphocytes # (Manual) D-Dimer ABG pH POC ABG pO2 ABG pO2 ABG O2 Saturation ABG Oxyhemoglobin ABG Sodium ABG Chloride ABG Glucose Oxyhemoglobin Carboxyhemoglobin Sodium Potassium Chloride Carbon Dioxide BUN Creatinine Glucose POC Glucose 296 H 279 H 232 H Hemoglobin A1c Ferritin AST ALT Alkaline Phosphatase Lactate Dehydrogenase C-Reactive Protein Total Protein Albumin Arterial Blood Glucose Coronavirus (PCR) 05/02/21 05/02/21 05/02/21 04:55 04:55 04:55 WBC MCHC RDW 16.1 H Lymph % (Auto) Lymph # (Auto) Seg Neutrophils % Seg Neuts % (Manual) Seg Neutrophils # Seg Neutrophils # Man Lymphocytes # (Manual) D-Dimer 1401.08 H ABG pH POC ABG pO2 ABG pO2 ABG O2 Saturation ABG Oxyhemoglobin ABG Sodium ABG Chloride ABG Glucose Oxyhemoglobin Carboxyhemoglobin Sodium 131 L Potassium Chloride 95.5 L Carbon Dioxide BUN 20 H Creatinine 0.3 L Glucose 288 H POC Glucose Hemoglobin A1c Ferritin AST ALT Alkaline Phosphatase Lactate Dehydrogenase C-Reactive Protein Total Protein 6.0 L Albumin 3.1 L Arterial Blood Glucose Coronavirus (PCR) 05/02/21 05/02/2121 07:53 11:45 15:25 WBC MCHC RDW Lymph % (Auto) Lymph # (Auto) Seg Neutrophils % Seg Neuts % (Manual) Seg Neutrophils # Seg Neutrophils # Man Lymphocytes # (Manual) D-Dimer ABG pH POC ABG pO2 ABG pO2 ABG O2 Saturation ABG Oxyhemoglobin ABG Sodium ABG Chloride ABG Glucose Oxyhemoglobin Carboxyhemoglobin Sodium Potassium Chloride Carbon Dioxide BUN Creatinine Glucose POC Glucose 180 H 228 H 275 H Hemoglobin A1c Ferritin AST ALT Alkaline Phosphatase Lactate Dehydrogenase C-Reactive Protein Total Protein Albumin Arterial Blood Glucose Coronavirus (PCR) 05/02/21 05/03/21 05/03/21 22:56 04:30 04:49 WBC MCHC RDW Lymph % (Auto) Lymph # (Auto) Seg Neutrophils % Seg Neuts % (Manual) Seg Neutrophils # Seg Neutrophils # Man Lymphocytes # (Manual) D-Dimer ABG pH 7.229 L POC ABG pO2 65.3 L ABG pO2 ABG O2 Saturation ABG Oxyhemoglobin 87.8 L ABG Sodium 133.0 L ABG Chloride 97.0 L ABG Glucose 403 H Oxyhemoglobin Carboxyhemoglobin Sodium 130 L Potassium Chloride 94.9 L Carbon Dioxide BUN 20 H Creatinine 0.5 L D Glucose 359 H POC Glucose 293 H Hemoglobin A1c Ferritin AST 54 H ALT 75 H Alkaline Phosphatase 138 H Lactate Dehydrogenase C-Reactive Protein Total Protein Albumin 3.6 L Arterial Blood Glucose 403 H Coronavirus (PCR) 05/03/21 05/03/21 05/03/21 05:27 11:26 17:57 WBC MCHC RDW Lymph % (Auto) Lymph # (Auto) Seg Neutrophils % Seg Neuts % (Manual) Seg Neutrophils # Seg Neutrophils # Man Lymphocytes # (Manual) D-Dimer ABG pH POC ABG pO2 ABG pO2 ABG O2 Saturation ABG Oxyhemoglobin ABG Sodium ABG Chloride ABG Glucose Oxyhemoglobin Carboxyhemoglobin Sodium Potassium Chloride Carbon Dioxide BUN Creatinine Glucose POC Glucose 361 H 297 H 226 H Hemoglobin A1c Ferritin AST ALT Alkaline Phosphatase Lactate Dehydrogenase C-Reactive Protein Total Protein Albumin Arterial Blood Glucose Coronavirus (PCR) 05/03/21 05/04/21 05/04/21 23:12 05:12 07:30 WBC MCHC RDW Lymph % (Auto) Lymph # (Auto) Seg Neutrophils % Seg Neuts % (Manual) Seg Neutrophils # Seg Neutrophils # Man Lymphocytes # (Manual) D-Dimer ABG pH POC ABG pO2 ABG pO2 ABG O2 Saturation ABG Oxyhemoglobin ABG Sodium ABG Chloride ABG Glucose Oxyhemoglobin Carboxyhemoglobin Sodium Potassium Chloride Carbon Dioxide BUN Creatinine Glucose POC Glucose 282 H 285 H 254 H Hemoglobin A1c Ferritin AST ALT Alkaline Phosphatase Lactate Dehydrogenase C-Reactive Protein Total Protein Albumin Arterial Blood Glucose Coronavirus (PCR) 05/04/21 05/04/21 05/04/21 08:58 11:45 16:07 WBC MCHC RDW Lymph % (Auto) Lymph # (Auto) Seg Neutrophils % Seg Neuts % (Manual) Seg Neutrophils # Seg Neutrophils # Man Lymphocytes # (Manual) D-Dimer ABG pH POC ABG pO2 ABG pO2 ABG O2 Saturation ABG Oxyhemoglobin ABG Sodium ABG Chloride ABG Glucose Oxyhemoglobin Carboxyhemoglobin Sodium 134 L Potassium Chloride Carbon Dioxide BUN 20 H Creatinine 0.3 L Glucose 267 H POC Glucose 244 H 297 H Hemoglobin A1c Ferritin AST ALT Alkaline Phosphatase Lactate Dehydrogenase C-Reactive Protein Total Protein 6.0 L Albumin 3.2 L Arterial Blood Glucose Coronavirus (PCR) 05/04/21 05/05/21 05/05/21 23:32 05:00 05:13 WBC MCHC RDW Lymph % (Auto) Lymph # (Auto) Seg Neutrophils % Seg Neuts % (Manual) Seg Neutrophils # Seg Neutrophils # Man Lymphocytes # (Manual) D-Dimer ABG pH POC ABG pO2 ABG pO2 ABG O2 Saturation ABG Oxyhemoglobin ABG Sodium ABG Chloride ABG Glucose Oxyhemoglobin Carboxyhemoglobin Sodium 132 L Potassium Chloride 96.4 L Carbon Dioxide BUN 22 H Creatinine 0.3 L Glucose 228 H POC Glucose 154 H 260 H Hemoglobin A1c Ferritin AST ALT 67 H Alkaline Phosphatase Lactate Dehydrogenase C-Reactive Protein Total Protein 6.1 L Albumin 3.2 L Arterial Blood Glucose Coronavirus (PCR) 05/05/21 05/05/21 05/05/21 11:32 17:49 23:07 WBC MCHC RDW Lymph % (Auto) Lymph # (Auto) Seg Neutrophils % Seg Neuts % (Manual) Seg Neutrophils # Seg Neutrophils # Man Lymphocytes # (Manual) D-Dimer ABG pH POC ABG pO2 ABG pO2 ABG O2 Saturation ABG Oxyhemoglobin ABG Sodium ABG Chloride ABG Glucose Oxyhemoglobin Carboxyhemoglobin Sodium Potassium Chloride Carbon Dioxide BUN Creatinine Glucose POC Glucose 279 H 308 H 213 H Hemoglobin A1c Ferritin AST ALT Alkaline Phosphatase Lactate Dehydrogenase C-Reactive Protein Total Protein Albumin Arterial Blood Glucose Coronavirus (PCR) 05/06/21 05/06/21 05/06/21 05:00 05:00 05:20 WBC MCHC RDW 16.8 H Lymph % (Auto) Lymph # (Auto) Seg Neutrophils % Seg Neuts % (Manual) 99.0 H Seg Neutrophils # Seg Neutrophils # Man 10.9 H Lymphocytes # (Manual) 0.0 L D-Dimer ABG pH POC ABG pO2 ABG pO2 ABG O2 Saturation ABG Oxyhemoglobin ABG Sodium ABG Chloride ABG Glucose Oxyhemoglobin Carboxyhemoglobin Sodium 133 L Potassium Chloride Carbon Dioxide BUN 21 H Creatinine 0.3 L Glucose 259 H POC Glucose 308 H Hemoglobin A1c Ferritin AST ALT Alkaline Phosphatase Lactate Dehydrogenase C-Reactive Protein Total Protein Albumin 3.2 L Arterial Blood Glucose Coronavirus (PCR) 05/06/21 05/06/21 05/06/21 11:24 17:54 21:32 WBC MCHC RDW Lymph % (Auto) Lymph # (Auto) Seg Neutrophils % Seg Neuts % (Manual) Seg Neutrophils # Seg Neutrophils # Man Lymphocytes # (Manual) D-Dimer ABG pH POC ABG pO2 ABG pO2 ABG O2 Saturation ABG Oxyhemoglobin ABG Sodium ABG Chloride ABG Glucose Oxyhemoglobin Carboxyhemoglobin Sodium Potassium Chloride Carbon Dioxide BUN Creatinine Glucose POC Glucose 262 H 124 H 246 H Hemoglobin A1c Ferritin AST ALT Alkaline Phosphatase Lactate Dehydrogenase C-Reactive Protein Total Protein Albumin Arterial Blood Glucose Coronavirus (PCR) 05/06/21 05/07/21 05/07/21 23:10 04:54 04:54 WBC MCHC RDW Lymph % (Auto) Lymph # (Auto) Seg Neutrophils % Seg Neuts % (Manual) Seg Neutrophils # Seg Neutrophils # Man Lymphocytes # (Manual) D-Dimer 1609.28 H ABG pH POC ABG pO2 ABG pO2 ABG O2 Saturation ABG Oxyhemoglobin ABG Sodium ABG Chloride ABG Glucose Oxyhemoglobin Carboxyhemoglobin Sodium 136 L Potassium Chloride Carbon Dioxide BUN 23 H Creatinine 0.3 L Glucose 110 H POC Glucose 249 H Hemoglobin A1c Ferritin AST ALT Alkaline Phosphatase Lactate Dehydrogenase C-Reactive Protein Total Protein 6.2 L Albumin 3.0 L Arterial Blood Glucose Coronavirus (PCR) 05/07/21 05/07/21 05/07/21 04:54 04:54 11:41 WBC MCHC RDW Lymph % (Auto) Lymph # (Auto) Seg Neutrophils % Seg Neuts % (Manual) Seg Neutrophils # Seg Neutrophils # Man Lymphocytes # (Manual) D-Dimer ABG pH POC ABG pO2 ABG pO2 ABG O2 Saturation ABG Oxyhemoglobin ABG Sodium ABG Chloride ABG Glucose Oxyhemoglobin Carboxyhemoglobin Sodium Potassium Chloride Carbon Dioxide BUN Creatinine Glucose POC Glucose 118 H Hemoglobin A1c Ferritin 296.1 H AST ALT Alkaline Phosphatase Lactate Dehydrogenase 724 H C-Reactive Protein Total Protein Albumin Arterial Blood Glucose Coronavirus (PCR) 05/07/21 05/07/21 05/08/21 16:43 22:34 06:44 WBC MCHC RDW Lymph % (Auto) Lymph # (Auto) Seg Neutrophils % Seg Neuts % (Manual) Seg Neutrophils # Seg Neutrophils # Man Lymphocytes # (Manual) D-Dimer ABG pH POC ABG pO2 ABG pO2 ABG O2 Saturation ABG Oxyhemoglobin ABG Sodium ABG Chloride ABG Glucose Oxyhemoglobin Carboxyhemoglobin Sodium Potassium Chloride Carbon Dioxide BUN Creatinine Glucose POC Glucose 159 H 233 H 235 H Hemoglobin A1c Ferritin AST ALT Alkaline Phosphatase Lactate Dehydrogenase C-Reactive Protein Total Protein Albumin Arterial Blood Glucose Coronavirus (PCR) 05/08/21 05/08/21 05/08/21 07:49 11:56 17:13 WBC MCHC RDW Lymph % (Auto) Lymph # (Auto) Seg Neutrophils % Seg Neuts % (Manual) Seg Neutrophils # Seg Neutrophils # Man Lymphocytes # (Manual) D-Dimer ABG pH POC ABG pO2 ABG pO2 ABG O2 Saturation ABG Oxyhemoglobin ABG Sodium ABG Chloride ABG Glucose Oxyhemoglobin Carboxyhemoglobin Sodium Potassium Chloride Carbon Dioxide BUN Creatinine Glucose POC Glucose 219 H 184 H 182 H Hemoglobin A1c Ferritin AST ALT Alkaline Phosphatase Lactate Dehydrogenase C-Reactive Protein Total Protein Albumin Arterial Blood Glucose Coronavirus (PCR) 05/08/21 05/09/21 05/09/21 23:35 05:20 05:20 WBC MCHC RDW Lymph % (Auto) Lymph # (Auto) Seg Neutrophils % Seg Neuts % (Manual) Seg Neutrophils # Seg Neutrophils # Man Lymphocytes # (Manual) D-Dimer 1003.87 H ABG pH POC ABG pO2 ABG pO2 ABG O2 Saturation ABG Oxyhemoglobin ABG Sodium ABG Chloride ABG Glucose Oxyhemoglobin Carboxyhemoglobin Sodium Potassium Chloride Carbon Dioxide BUN Creatinine Glucose POC Glucose 198 H Hemoglobin A1c Ferritin 378.7 H AST ALT Alkaline Phosphatase Lactate Dehydrogenase C-Reactive Protein Total Protein Albumin Arterial Blood Glucose Coronavirus (PCR) 05/09/21 05/09/21 05/09/21 05:20 06:04 12:53 WBC MCHC RDW Lymph % (Auto) Lymph # (Auto) Seg Neutrophils % Seg Neuts % (Manual) Seg Neutrophils # Seg Neutrophils # Man Lymphocytes # (Manual) D-Dimer ABG pH POC ABG pO2 ABG pO2 ABG O2 Saturation ABG Oxyhemoglobin ABG Sodium ABG Chloride ABG Glucose Oxyhemoglobin Carboxyhemoglobin Sodium Potassium Chloride Carbon Dioxide BUN Creatinine Glucose POC Glucose 159 H 180 H Hemoglobin A1c Ferritin AST ALT Alkaline Phosphatase Lactate Dehydrogenase 558 H C-Reactive Protein 2.40 H Total Protein Albumin Arterial Blood Glucose Coronavirus (PCR) 05/09/21 05/09/21 05/10/21 16:43 21:27 10:18 WBC MCHC RDW Lymph % (Auto) Lymph # (Auto) Seg Neutrophils % Seg Neuts % (Manual) Seg Neutrophils # Seg Neutrophils # Man Lymphocytes # (Manual) D-Dimer ABG pH POC ABG pO2 ABG pO2 ABG O2 Saturation ABG Oxyhemoglobin ABG Sodium ABG Chloride ABG Glucose Oxyhemoglobin Carboxyhemoglobin Sodium Potassium Chloride Carbon Dioxide BUN Creatinine Glucose POC Glucose 212 H 285 H 261 H Hemoglobin A1c Ferritin AST ALT Alkaline Phosphatase Lactate Dehydrogenase C-Reactive Protein Total Protein Albumin Arterial Blood Glucose Coronavirus (PCR)
[2021-05-10] MEDS: MINERAL OIL/PETROLATUM, WHITE OPHTH OINT 3.5 GM OU SCH ×2 (15:30→22:57)
[2021-05-10] MEDS: HYPROMELLOSE 0.5% OPHTH SOLN 15 ML OU PRN (22:56)
[2021-05-11] MEDS: INSULIN REGULAR, HUMAN 100 UNITS/1 ML SUB-Q SCH ×4 (01:20→17:51)
[2021-05-11] MEDS: INSULIN LISPRO 100 UNIT/ML SUB-Q SCH ×5 (01:20→23:06)
--- NOTE | 2021-05-11 07:43 | Progress Note ---
Assessment and Plan Assessment and plan: This is a 50-year-old female with GERD, obesity, HLD who presented to emergency department on 04/16 with complaints of "I cannot breathe" stating that she experienced subjective fever, shortness of breath, malaise, body aches, and dry cough over the past week via EMS. In the emergency department patient was found to have a pulse ox of 86% on room air with exertion. CXR revealed bilateral pneumonia. Patient was admitted to the hospital service to the floor with acute hypoxic respiratory failure and because of COVID-19 PUI. Of note patient is unvaccinated for coronavirus. Now subsequently transferred to medical floor from [facility].. Assessment and plan: NEURO- acute pain; anxiety -PRN tylenol -S/p dexamethasone for comfort -Follows commands and RAY -PRN pain meds -Patient is Tajik-speaking -Right eye- s/p 5 d course of cipro drops. suspect viral conjunctivitis. lubricating eye drops. supportive management. -Family updated on plan of care discussed with daughter over phone. CV- ST -SR-ST -S/p pressors now discontinued -MAP goal 65 -Pressure monitor per protocol Resp- acute hypoxic resp failure due to covid19 -S/p BiPAP, now discontinued -Currently on high per nasal cannula at flow rate 40 L/min, FiO2 90% -See RT notes for titration -Albuterol as needed -Pulmonary hygiene -Pulmonology following CTA chest ordered, patient could not tolerate today will reattempt tomorrow. GI- risk for protein gisella malnutrition given inc metabolic demand with resp insufficiency -TPN earlier in hospital admission due to BiPAP however now patient is tolerating p.o. -Patient on a GI soft diet with aspiration precautions -Nutrition following -Bowel regimen: Colace, senna, MiraLAX -PPI - volume overload; hyponatremia -Last 24 hours -125 -Trend BMP -Replace electrolytes as needed -Monitor intake and output Heme- coagulopathy of covid; on AC -Subcu heparin -Trend CBC -Transfuse for hemoglobin less than 7 -Bilateral lower extremity Doppler ultrasounds negative for DVT ; no CTA or VQ scan to rule out PE ID-covid19 pna; sepsis; viral conjunctivitis right eye: Oral candidiasis -zinc/vitC/D -methylpred 125 mg every 8; wean as appropriate -Infectious disease consulted, patient recommendations -S/p Actemra and remdesivir -Trend temperature and WBC curve -Follow culture data Nystatin solution ordered. Endo- hyperglycemia; obesity -glargine HS -SSI AC/HS -Avoid hypoglycemia Hospital course to date: 04/17: Patient seen and examined, still uncomfortable with Hypoxic respiratory failure and on oxygen, will continue to steroids therapy, start patient on Remdesivir, ID consulted, Pulmonary consult placed. 04/18: Patient seen and examined, she is currently being changed to High flow NC due to worsening HYPOXIA, will transfer to IMCU, Pulmonary and ID following. Will also give a dose of Lasix today. Monitor Inflammatory markers. 04/19: Patient seen and examined still on high flow due to hypoxia. Appears a bit more comfortable today than yesterday. Cough has decreased in frequency. We will continue high dose Dexameathasone to complete 10 days. continue on Remdesivir 200 mg IV q day x 1 followed by 100 mg IV q day x 4 days -Obtain q48-72h inflammatory markers - ferritin, Ddimer, CRP, LDH Will also give lasix daily for the next 3 days and monitor renal function. Family updated. Continue prone positioning as tolerated 04/20: Patient has some desaturation episodes yesterday was placed on BiPAP. Discussed with ICU team for bed availability for patient to be transferred up. Continue prone position as tolerated. 04/21: Patient remains with profound hypoxia secondary to COVID pneumonia. -Continue steroids -Continue remedesir -S/P Actmera 04/22: Patient remains on steroids and remdesivir. ABG shows persistent hypoxia. We will continue current management additional trial of Lasix for the next few days to see if any improvement. Monitor inflammatory markers as needed. Prognosis is guarded remains on high flow 04/23; patient was treated with remdesivir and Actemra. Continue steroid. Patient's prognosis is guarded. 04/24; patient is on steroid. Patient is currently on BiPAP. Prognosis is guarded. Pulmonary is following. Patient was given Lasix and Ativan. 04/25; continue steroid. Patient was on 40 L of high flow oxygen with saturation was 88%. Pulmonary is following. Prognosis is guarded. Patient was given lasix and ativan. 04/26; patient is on BiPAP and Precedex. Prognosis is guarded. 04/27; patient is on BiPAP and Precedex. Patient will finish steroid today and will start on Solu-Medrol tomorrow. Prognosis is guarded. Blood pressure is better today. Hold Lasix. 04/28 patient is on 100 Fio2 via BIPAP. moderately dyspneic, pulmonary note reviewed, lab results reviewed 04/29 no acute events- see systems review above 04/30 no acute events overnight - on airvo today- TPN started -see systems review above 05-01 no acute events overnight- tolerating airvo- see systems review above 05-02 no acute events overnight; tolerating airvo this AM- see systems review above 05/03: Patient has shown remarkable improvement, weaned down to 3 L and satting 95%. Will attempt to walk test today in anticipation for discharge tomorrow. Discussed with PT team to walk the patient today also. 05/04: Patient appears to have had a decline he was down to 3 L satting 95% with anticipation for discharge today but desatted down to 85% on room air and only 88% on 5 L he is now back at 8 L. I encourage incentive spirometer. While he is on Xarelto and has completed the severe steroids which was subsequently changed to Solu-Medrol I will go ahead and order a CTA to make sure that there is not a failure of Xarelto. We will continue to wean as tolerated discussed with nursing staff at bedside. 05/05/21 Patient is on 40 L of oxygen with 80% FiO2. Patient is encouraged to turn to the side more frequently. Patient is denied any shortness of breath and coughing. No other complaints. Follow the CT scan of the chest. Status post remdesivir and Actemra.Solu-Medrol 40 mg IV every 8 hours. Continue current management. Pulmonary follow-up. 05/06: Patient remains on high flow nasal cannula but states that she feels slightly better with the help of translation from her cousin Aspen. Patient is still awaiting a bed on the floor. Patient diet is being tolerated now so we will stop TPN will be stopped tonight. 05/07/2021: Patient remains on 40 L/min oxygen at 90% FiO2. Attempt made for CTA chest to rule out pulmonary embolism however patient desatted while at CT. Study was aborted, will reattempt again tomorrow. will follow along with ernetta bertrand. Discussed/updated patient and patient's daughter over phone regarding any active clinical issues. Patient only complaint is oral pain from oral candidia sis noted on exam. Nystatin oral solution ordered. Daughter also voiced concern over patient eye drops which she stated that patient needed to restart from home. However she did not remember name of drops. advised daughter to call our hospital with drop name and dosing and we will restart. 05/08/2021: Started anticoagulation with Lovenox yesterday. Awaiting CTA chest completion. Will attempt to de-escalate oxygen as patient tolerates 05/09/2021: Continues to have high O2 requirements. CTA chest aborted due to patient not being able to tolerate transport to and from scanner. Will follow pulmonology recommendations 05/10/2021: Steroids increased yesterday to 125 mg every 8 hour. Continuing full dose anticoagulation. Respiratory status still remains challenging as it is difficult to wean patient off of hifnc. Minimal improvement compared to last few days. Plan to prone patient today. Otherwise: Some improvement in eye symptoms compared to yesterday. Will order more lubricating eye drops 05/11/2021: Still requires high flow nasal cannula, FiO2 de-escalated to 85%.. Encourage continued proning, patient care team aware. Continue with steroids, anticoagulation, antibiotics. History Interval history: Understandably frustrated with current hospitalization. We communicated to patient that she is sick and cannot go home until respiratory status improves. Hospitalist Physical - Physical exam Narrative exam: Constitutional: no acute distress, alert, on hi flow nasal cannula Eyes: non-icteric, right eye erythematous some improvement noted ENT: dry, patchy white plaques noted Neck: supple Effort: normal Ascultation: Bilateral: diminished breath sounds Cardiovascular: regular rate and rhythm Gastrointestinal: normoactive bowel sounds, soft, non-tender, non-distended Integumentary: normal Extremities: no cyanosis, no edema, pink and warm Neurologic: normal mental status, non-focal exam, pupils equal and round, CN II- XII normal Psychiatric: mood appropriate, affect normal - Constitutional Vitals: Temp Pulse Resp BP Pulse Ox 98.2 F 69 18 111/63 95 05/11/21 04:55 05/11/21 04:55 05/11/21 04:55 05/11/21 04:55 05/11/21 04:55 General appearance: Present: mild distress Results - Labs CBC & Chem 7: 05/06/21 05:00 05/07/21 04:54 Labs: Laboratory Last Values WBC 11.0 K/mm3 (4.5-11.0) 05/06/21 05:00 RBC 4.57 M/mm3 (3.65-5.03) 05/06/21 05:00 Hgb 13.9 gm/dl (10.1-14.3) 05/06/21 05:00 Hct 40.7 % (30.3-42.9) 05/06/21 05:00 MCV 89 fl (79-97) 05/06/21 05:00 MCH 31 pg (28-32) 05/06/21 05:00 MCHC 34 % (30-34) 05/06/21 05:00 RDW 16.8 % (13.2-15.2) H 05/06/21 05:00 Plt Count 169 K/mm3 (140-440) 05/06/21 05:00 Lymph % (Auto) 7.7 % (13.4-35.0) L 04/17/21 03:50 [place]wey % (Auto) 2.5 % (0.0-7.3) 04/17/21 03:50 Eos % (Auto) 0.0 % (0.0-4.3) 04/17/21 03:50 Baso % (Auto) 0.0 % (0.0-1.8) 04/17/21 03:50 Lymph # (Auto) 0.6 K/mm3 (1.2-5.4) L 04/17/21 03:50 Dewey # (Auto) 0.2 K/mm3 (0.0-0.8) 04/17/21 03:50 Eos # (Auto) 0.0 K/mm3 (0.0-0.4) 04/17/21 03:50 Baso # (Auto) 0.0 K/mm3 (0.0-0.1) 04/17/21 03:50 Add Manual Diff Complete 05/06/21 05:00 Total Counted 100 05/06/21 05:00 Seg Neutrophils % 89.8 % (40.0-70.0) H 04/17/21 03:50 Seg Neuts % (Manual) 99.0 % (40.0-70.0) H 05/06/21 05:00 Monocytes % (Manual) 1.0 % (0.0-7.3) 05/06/21 05:00 Nucleated RBC % Not Reportable 05/06/21 05:00 Seg Neutrophils # 6.7 K/mm3 (1.8-7.7) 04/17/21 03:50 Seg Neutrophils # Man 10.9 K/mm3 (1.8-7.7) H 05/06/21 05:00 Band Neutrophils # 0.0 K/mm3 05/06/21 05:00 Lymphocytes # (Manual) 0.0 K/mm3 (1.2-5.4) L 05/06/21 05:00 Abs React Lymphs (Man) 0.0 K/mm3 05/06/21 05:00 Monocytes # (Manual) 0.1 K/mm3 (0.0-0.8) 05/06/21 05:00 Eosinophils # (Manual) 0.0 K/mm3 (0.0-0.4) 05/06/21 05:00 Basophils # (Manual) 0.0 K/mm3 (0.0-0.1) 05/06/21 05:00 Metamyelocytes # 0.0 K/mm3 05/06/21 05:00 Myelocytes # 0.0 K/mm3 05/06/21 05:00 Promyelocytes # 0.0 K/mm3 05/06/21 05:00 Blast Cells # 0.0 K/mm3 05/06/21 05:00 WBC Morphology Not Reportable 05/06/21 05:00 Hypersegmented Neuts Not Reportable 05/06/21 05:00 Hyposegmented Neuts Not Reportable 05/06/21 05:00 Hypogranular Neuts Not Reportable 05/06/21 05:00 Smudge Cells Not Reportable 05/06/21 05:00 Toxic Granulation Not Reportable 05/06/21 05:00 Toxic Vacuolation Not Reportable 05/06/21 05:00 Dohle Bodies Not Reportable 05/06/21 05:00 Pelger-Huet Anomaly Not Reportable 05/06/21 05:00 Janelle Rods Not Reportable 05/06/21 05:00 Platelet Estimate Consistent w auto 05/06/21 05:00 Clumped Platelets Not Reportable 05/06/21 05:00 Plt Clumps, EDTA Not Reportable 05/06/21 05:00 Large Platelets Not Reportable 05/06/21 05:00 Giant Platelets Not Reportable 05/06/21 05:00 Platelet Satelliting Not Reportable 05/06/21 05:00 Plt Morphology Comment Not Reportable 05/06/21 05:00 RBC Morphology Normal 05/06/21 05:00 Dimorphic RBCs Not Reportable 05/06/21 05:00 Polychromasia Not Reportable 05/06/21 05:00 Hypochromasia Not Reportable 05/06/21 05:00 Poikilocytosis Not Reportable 05/06/21 05:00 Anisocytosis Not Reportable 05/06/21 05:00 Microcytosis Not Reportable 05/06/21 05:00 Macrocytosis Not Reportable 05/06/21 05:00 Spherocytes Not Reportable 05/06/21 05:00 Pappenheimer Bodies Not Reportable 05/06/21 05:00 Sickle Cells Not Reportable 05/06/21 05:00 Target Cells Not Reportable 05/06/21 05:00 Tear Drop Cells Not Reportable 05/06/21 05:00 Ovalocytes Not Reportable 05/06/21 05:00 Helmet Cells Not Reportable 05/06/21 05:00 Ahu[place] Bodies Not Reportable 05/06/21 05:00 [place] Rings Not Reportable 05/06/21 05:00 Crow Cells Not Reportable 05/06/21 05:00 Bite Cells Not Reportable 05/06/21 05:00 Crenated Cell Not Reportable 05/06/21 05:00 Elliptocytes Not Reportable 05/06/21 05:00 Acanthocytes (Spur) Not Reportable 05/06/21 05:00 Rouleaux Not Reportable 05/06/21 05:00 Hemoglobin C Crystals Not Reportable 05/06/21 05:00 Schistocytes Not Reportable 05/06/21 05:00 Malaria parasites Not Reportable 05/06/21 05:00 Justin Bodies Not Reportable 05/06/21 05:00 Hem Pathologist Commnt No 05/06/21 05:00 D-Dimer 1003.87 ng/mlDDU (0-234) H 05/09/21 05:20 ABG pH 7.229 (7.320-7.450) L 05/03/21 04:49 POC ABG pCO2 45.4 mmHg (32.0-48.0) 05/03/21 04:49 ABG pCO2 42.2 mm Hg 04/29/21 14:23 POC ABG pO2 65.3 mmHg (83-108) L 05/03/21 04:49 ABG pO2 52.6 mm Hg (80.0-90.0) L 04/29/21 14: POC ABG HCO3 18.5 05/03/21 04:49 ABG HCO3 26.0 mmol/L (20.0-26.0) 04/29/21 14:23 ABG O2 Saturation 88.4 (0-100) 05/03/21 04:49 ABG O2 Content 18.1 (0.0-44) 04/29/21 14:23 POC ABG Base Excess -8.9 05/03/21 04:49 ABG Base Excess 1.1 mmol/L (-2.0-3.0) 04/29/21 14:23 ABG Hemoglobin 15.8 (12.0-17.5) 05/03/21 04:49 ABG Oxyhemoglobin 87.8 (94-98) L 05/03/21 04:49 ABG Carboxyhemoglobin 1.5 % (0.0-5.0) 04/29/21 14:23 ABG Methemoglobin 0.1 (0.0-1.5) 05/03/21 04:49 ABG Sodium 133.0 mmol/L (136.0-145.0) L 05/03/21 04:49 ABG Potassium 3.9 mmol/L (3.40-4.50) 05/03/21 04:49 ABG Chloride 97.0 mmol/L (98-107) L 05/03/21 04:49 ABG Glucose 403 mg/dL (65-95) H 05/03/21 04:49 Oxyhemoglobin 84.6 % (95.0-99.0) L 04/29/21 14:23 Carboxyhemoglobin 0.6 (0.5-1.5) 05/03/21 04:49 FiO2 100 % 04/29/21 14:23 FiO2 % 100.0 05/03/21 04:49 Sodium 136 mmol/L (137-145) L 05/07/21 04:54 Potassium 4.1 mmol/L (3.6-5.0) 05/07/21 04:54 Chloride 100.6 mmol/L (98-107) 05/07/21 04:54 Carbon Dioxide 25 mmol/L (22-30) 05/07/21 04:54 Anion Gap 15 mmol/L 05/07/21 04:54 BUN 23 mg/dL (7-17) H 05/07/21 04:54 Creatinine 0.3 mg/dL (0.6-1.2) L 05/07/21 04:54 Estimated GFR > 60 ml/min 05/07/21 04:54 BUN/Creatinine Ratio 77 % 05/07/21 04:54 Glucose 110 mg/dL (65-100) H 05/07/21 04:54 POC Glucose 162 mg/dL (70-105) H 05/11/21 05:22 Hemoglobin A1c 8.5 % (4-6) H 04/18/21 07:36 Calcium 8.6 mg/dL (8.4-10.2) 05/07/21 04:54 Phosphorus 3.60 mg/dL (2.5-4.5) 05/06/21 05:00 Magnesium 2.00 mg/dL (1.7-2.3) 05/06/21 05:00 Ferritin 378.7 ng/mL (10.0-200.0) H 05/09/21 05:20 Total Bilirubin 0.30 mg/dL (0.1-1.2) 05/07/21 04:54 AST 25 units/L (5-40) 05/07/21 04:54 ALT 40 units/L (7-56) 05/07/21 04:54 Alkaline Phosphatase 99 units/L (35-129) 05/07/21 04:54 Lactate Dehydrogenase 558 units/L (91-180) H 05/09/21 05:20 C-Reactive Protein 2.40 mg/dL (0.00-1.30) H 05/09/21 05:20 Total Protein 6.2 g/dL (6.3-8.2) L 05/07/21 04:54 Albumin 3.0 g/dL (3.9-5) L 05/07/21 04:54 Albumin/Globulin Ratio 0.9 % 05/07/21 04:54 Triglycerides < 9 mg/dL (2-149) 05/03/21 04:30 Procalcitonin < 0.05 ng/mL (<0.15) 04/17/21 08:26 Arterial Blood Glucose 403 mg/dL (65-95) H 05/03/21 04:49 Arterial Blood Ionized Calcium 4.9 mg/dL (4.6-5.3) 05/03/21 04:49 Coronavirus (PCR) Positive (Negative) A 04/17/21 Unknown Amos/IV: Voiding Method External Female Catheter Active Medications - Current Medications Current Medications: Generic Name Dose Route Start Last Admin Trade Name Freq PRN Reason Stop Dose Admin Acetaminophen 650 mg 04/16/21 14:00 04/27/21 18:58 Acetaminophen 325 Mg Tab PO 650 mg Q4H PRN Administration Pain MILD(1-3)/Fever >100.5/[place] Albuterol 2.5 mg 04/16/21 13:39 04/21/21 20:39 Albuterol 2.5 Mg/3 Ml Nebu IH 2.5 mg Q4HRT PRN Administration Shortness Of Breath Artificial Tears 2 drops 04/28/21 18:15 05/10/21 22:56 Hypromellose 0.5% Ophth Soln 15 Ml OU 2 drops Q4H PRN Administration Dry Eye(s) Ascorbic Acid 500 mg 04/24/21 10:00 05/10/21 10:09 Ascorbic Acid 500 Mg Tab PO 500 mg QDAY TUTU Administration Cholecalciferol 1,000 unit 04/17/21 10:00 05/10/21 10:09 Cholecalciferol (Vit D3) 1000 Unit (25 Mcg) Tab PO 1,000 unit QDAY TUTU Administration Dextrose 50 ml 04/18/21 07:30 04/28/21 09:59 Dextrose 50% In Water (25gm) 50 Ml Syringe IV 50 ml Q30MIN PRN Administration Hypoglycemia Protocol Docusate Sodium 100 mg 04/30/21 10:00 05/10/21 22:57 Docusate Sodium 100 Mg Cap PO 100 mg BID TUTU Administration Enoxaparin Sodium 70 mg 05/08/21 06:00 05/10/21 18:03 Enoxaparin 80 Mg/0.8 Ml Inj SUB-Q 70 mg Q12H TUTU Administration Famotidine 20 mg 05/07/21 22:00 05/10/21 22:58 Famotidine 20 Mg Tab PO 20 mg BID TUTU Administration Potassium Chloride 20 meq in 100 mls @ 100 mls/hr 04/30/21 09:25 Kcl 20meq/100ml IV Q1H PRN Potassium 3-3.5 mEq/L Potassium Chloride 20 meq in 100 mls @ 100 mls/hr 04/30/21 09:25 Kcl 20meq/100ml IV Q1H PRN Potassium 2.6-2.9 mEq/L Magnesium Sulfate 1 gm/ Sodium 52 mls @ 26 mls/hr 04/30/21 09:25 Chloride IV Q2H PRN Magnesium level 1.8-2 mg/dL Magnesium Sulfate 2 gm in 50 mls @ 25 mls/hr 04/30/21 09:25 Magnesium Sulfate 2gm/50ml IV Q2H PRN Magnesium level 1.5-1.7 mg/dL Magnesium Sulfate 4 gm in 100 mls @ 25 mls/hr 04/30/21 09:25 Magnesium Sulfate 4gm/100ml IV Q4H PRN Magnesium level < 1.4 mg/dL Sodium Phosphate 15 mmol/ 155 mls @ 40 mls/hr 04/30/21 09:25 Sodium Chloride IV Q4H PRN Phosphorous level 1.2-2.5 mg/d Sodium Phosphate 30 mmol/ 260 mls @ 40 mls/hr 04/30/21 09:25 Sodium Chloride IV Q6H PRN Phosphorous level < 1.2 mg/dL Insulin Glargine 25 units 05/04/21 11:05 05/10/21 10:23 Insulin Glargine 100 Units/Ml SUB-Q 25 units DAILY TUTU Administration Insulin Glargine 10 units 05/06/21 22:00 05/10/21 22:57 Insulin Glargine 100 Units/Ml SUB-Q 10 units QHS TUTU Administration Insulin Human Lispro 0 unit 05/01/21 12:00 05/11/21 01:20 Insulin Lispro 100 Unit/Ml SUB-Q Not Given Q6HR [facility] Protocol Insulin Human Regular 6 units 05/07/21 12:00 05/11/21 01:20 Insulin Regular, Human 100 Units/1 Ml SUB-Q Not Given Q6HR [facility] Lorazepam 1 mg 05/02/21 08:56 05/04/21 22:13 Lorazepam 2 Mg/Ml Vial IV 1 mg Q4H PRN Administration Anxiety Methylprednisolone Sodium Succinate 125 mg 05/09/21 16:13 05/10/21 22:58 Methylprednisolone Sod Succinate 125 Mg/2 Ml Inj IV 125 mg Q8HR TUTU Administration Multi-Ingred Cream/Lotion/Oil/Oint 1 applic 05/10/21 14:00 05/10/21 22:57 Mineral Oil/Petrolatum, White Ophth Oint 3.5 Gm OU 1 applic Q8HR TUTU Administration Nystatin 500,000 unit 05/07/21 18:00 05/10/21 22:58 Nystatin 500,000 Unit/5 Ml Oral Liqd PO 500,000 unit QID TUTU Administration Ondansetron HCl 4 mg 04/16/21 14:00 05/03/21 13:19 Ondansetron 4 Mg/2 Ml Inj IV 4 mg Q8H PRN Administration Nausea And Vomiting Polyethylene Glycol 17 gm 05/02/21 16:00 05/10/21 10:08 Polyethylene Glycol 3350 17 Gm Powder PO 17 gm QDAY TUTU Administration Senna 17.2 mg 05/02/21 22:00 05/10/21 22:58 Sennosides 8.6 Mg Tab PO 17.2 mg QHS TUTU Administration Sodium Chloride 10 ml 04/16/21 22:00 05/10/21 22:58 Sodium Chloride 0.9% 10 Ml Flush Syringe IV 10 ml BID TUTU Administration Sodium Chloride 10 ml 04/16/21 13:39 Sodium Chloride 0.9% 10 Ml Flush Syringe IV PRN PRN LINE FLUSH Zinc Sulfate 220 mg 04/16/21 22:00 05/10/21 22:58 Zinc Sulfate 220 Mg Cap PO 220 mg BID TUTU Administration Nutrition/Malnutrition Assess - Dietary Evaluation Nutrition/Malnutrition Findings: Nutrition Notes Start: 04/23/21 07:41 Freq: Status: Active Protocol: Document 05/10/21 13:31 (Rec: 05/10/21 13:33 [id number]) Nutrition Notes Initial or Follow up Reassessment Current Diagnosis Respiratory Failure Other Pertinent Diagnosis oral thrush, COVID-19 pneu Current Diet GI soft Labs/Tests POC BG 285-94 Pertinent Medications Reviewed Height 4 ft 11.84 in Weight 68.1 kg [place] Body Weight (kg) 45.09 BMI 29.5 Weight Status Overweight Subjective/Other Information Pt eating 100% of meals, per RN. Percent of energy/protein needs met: 100%/100% Burn Absent Trauma Absent Current % PO Good (75-100%) Minimum of two criteria Yes Energy Intake (severe) < or equal to 50% Estimated Energy Requirement > or equal to 5 days Interpretation of Weight Loss (severe) >5% in 1 month #2 Nutrition Diagnosis Malnutrition Diagnosis Progress(for reassessment Continues documentation) #1 Nutrition Diagnosis Inadequate oral intake As Evidenced by Signs and Symptoms pt meeting 100%/100% of kcal/ protein needs Diagnosis Progress(for reassessment Improved documentation) Is patient on ventilator? No Is Patient Ambulatory and/or Out of Bed No REE-([facility]-confined to bed) 1473.888 Kcal/Kg value to use for calculation 25 Approximate Energy Requirements Using 1703 kcal/Kg Calculation Used for Recommendations [facility] Additional Notes Pro needs 1.2-2g/k-137g/ day Fluid needs 1ml/kcal Nutrition Intervention Add Supplement/Snack (indicate name/kcal Glucerna BID /protein ) Provides kCal: 440 Provides Protein (gm) 20 Goal #1 Continue to meet at least 75% of protein and energy needs Anticipated Discharge Needs: Consistent CHO Follow-Up By: 05/17/21 Additional Comments F/u: stable intakes
[2021-05-11] MEDS: MINERAL OIL/PETROLATUM, WHITE OPHTH OINT 3.5 GM OU SCH ×3 (08:59→22:19)
[2021-05-11] MEDS: ASCORBIC ACID 500 MG TAB PO SCH (09:40)
[2021-05-11] MEDS: CHOLECALCIFEROL (VIT D3) 1000 UNIT (25 mcg) TAB PO SCH (09:40)
[2021-05-11] MEDS: DOCUSATE SODIUM 100 MG CAP PO SCH ×2 (09:40→22:18)
[2021-05-11] MEDS: FAMOTIDINE 20 MG TAB PO SCH ×2 (09:40→22:18)
[2021-05-11] MEDS: NYSTATIN 500,000 UNIT/5 ML ORAL LIQD PO SCH ×4 (09:40→22:18)
[2021-05-11] MEDS: ZINC SULFATE 220 MG CAP PO SCH ×2 (09:41→22:18)
[2021-05-11] MEDS: POLYETHYLENE GLYCOL 3350 17 GM POWDER PO SCH (09:41)
[2021-05-11] MEDS: ENOXAPARIN 80 MG/0.8 ML INJ SUB-Q SCH ×2 (09:44→18:11)
[2021-05-11] MEDS: INSULIN GLARGINE 100 UNITS/ML SUB-Q SCH ×2 (11:43→22:18)
--- NOTE | 2021-05-11 11:52 | Progress Note ---
Assessment and Plan 50 y/o female with acute respiratory failure secondary to COVID19 pneumonia. 05/11/21: Continue high doses of steroids and continue to wean for sats >88%. Please encourage proning. 05/10/21: Will continue this dose of steroid at least through the weekend and assess for improvement. will speak with RT about aggressive weaning. Full dose anticoagulation continues. Very very guarded to poor prognosis. 05/09/21: Going to consider increasing steroids to 125q8, maybe as early as tomorrow. continue full dose anticoagulation. 05/08/21: Continue anticoagulation and steroids. Prone if possible. Anxiety control. No objection to CTA if this can happen. Very very guarded prognosis. 05/07/21: Spoke with IMS, not opposed to full dose anticoagulation. If patient goes back on NRB HFNC combo may need to consider restarting PPN again. Encourage proning. Guarded prognosis. 05/06/21: Continue to wean FiO2 and flow for sats >88%. Tolerating diet now so will stop PPN. Continue anxiety control. Continue IV steroids. Would not object to transfer to [facility] if bed available. Not sure why she was titrated back up to 100% from 85 as all sats documented in the RT's notes were acceptable. Same for under vital signs as well. 05/03/21: Set back last night from yesterday. Continue bipap therapy for now and attempt HFNC maybe later this afternoon. Continue to use PRN ativan but may need to schedule as she likely took off mask from anxiety. Continue IV steroids. Hold on transfer to COVID Floor. 05/02/21: Continue to wean FiO2 as tolerated for sats >88%. Will continue bipap at night. Patient has no funding so not a candidate for LTACH. Given that she has been stable and not requiring the combo of HFNC and NRB, will consider moving to COVID floor. 05/01/21: Continue to wean FiO2 for sats >88%. A sat of 90 is more than acceptable and oxygen should not be increased for this unless patient desats and remains at a sat lower than 88. Bipap at night to give some form of relief and HFNC during the day. Currently on just this alone which is improvement. Ok with daily diuresis but must monitor renal function and BP closely. She was over diuresed last week and we ended up giving fluid back. Prognosis remains guarded. 04/30/21: Will start CLinimix today for nutritional support, without electrolytes. Check labs in am. Prone if able. Continue precedx for anxiety. Very very guarded prognosis. Attempting our best to not intubate. 04/29/21: Continue precedex. Continue IV solumedrol. Prone if able. Guarded prognosis. 04/28/21: Continue Precedex. Picc team attempting to place line now. Stable on Bipap. Ordered steroids IV solumedrol to start today. Prognosis remains guarded, still at very high risk for intubation. 04/27/21: Hypotension improving/improved. Hold on any further lasix dosing. Continue precedex to help with anxeity. later today please attempt HFNC with NRB if needed. Attempt to feed if possible. Steroids end today, please order solumedrol 40q8 to start tomorrow (04/28/21). guarded prognosis. 04/26/21: Hypotension today, most likely from precedex use and diuresis that I did the last several days. Will bolus again today. Consider midodrine if BP does not respond. 04/25/21: Lasix again today. Keep PRN ativan for now. Hold on precedex for now. Guarded prognosis. Labs ordered for tomorrow. 04/24/21: Lasix today. Will also start patient on low dose PRN ativan. If this does not help will then try precedex. Guarded prognosis. 04/23/21: Prone as tolerated. No lasix today. Continue decadron. Guarded prognosis. High risk for intubation and high mortality with intubation. 04/19/21: Prone as tolerated during the day and sleep prone at night. Continue IV remdesivir and steroids. Did get actemra. Guarded prognosis. 1. Daily net negative state 2. Prone if possible 3. IV remdesivir. 4. Should be a candidate for Actemra 5. IV steroids 6. Guarded Prognosis Subjective Date of service: 05/11/21 Principal diagnosis: Covid-19 Interval history: Dropped to 85 on the HFNC. Good sats. Tolerating higher doses of steroids. Objective Vital Signs - 12hr 05/11/21 05/11/21 05/11/21 00:28 02:00 04:55 Temperature 98.2 F Pulse Rate 69 Respiratory 18 Rate Blood Pressure 111/63 O2 Sat by Pulse 99 97 95 Oximetry 05/11/21 08:00 Temperature Pulse Rate 69 Respiratory 18 Rate Blood Pressure 111/63 O2 Sat by Pulse 99 Oximetry Constitutional: no acute distress, alert Eyes: non-icteric ENT: oropharynx moist Neck: supple Effort: normal Ascultation: Bilateral: diminished breath sounds Cardiovascular: regular rate and rhythm Gastrointestinal: normoactive bowel sounds, soft, non-tender, non-distended Integumentary: normal Extremities: no cyanosis, no edema, pink and warm Neurologic: normal mental status, non-focal exam, pupils equal and round, CN II- XII normal Psychiatric: mood appropriate, affect normal CBC and BMP: 05/06/21 05:00 05/07/21 04:54 ABG, PT/INR, D-dimer: ABG ABG pH 7.229 (7.320-7.450) L 05/03/21 04:49 POC ABG pCO2 45.4 mmHg (32.0-48.0) 05/03/21 04:49 ABG pCO2 42.2 mm Hg 04/29/21 14:23 POC ABG pO2 65.3 mmHg (83-108) L 05/03/21 04:49 ABG pO2 52.6 mm Hg (80.0-90.0) L 04/29/21 14:23 POC ABG HCO3 18.5 05/03/21 04:49 ABG O2 Saturation 88.4 (0-100) 05/03/21 04:49 PT/INR, D-dimer D-Dimer 1003.87 ng/mlDDU (0-234) H 05/09/21 05:20 Abnormal lab findings: Abnormal Labs 04/16/21 04/16/21 04/16/21 11:42 11:42 11:42 WBC MCHC RDW 16.1 H Lymph % (Auto) 7.8 L Lymph # (Auto) 0.8 L Seg Neutrophils % 87.7 H Seg Neuts % (Manual) Seg Neutrophils # 8.5 H Seg Neutrophils # Man Lymphocytes # (Manual) D-Dimer 338.70 H ABG pH POC ABG pO2 ABG pO2 ABG O2 Saturation ABG Oxyhemoglobin ABG Sodium ABG Chloride ABG Glucose Oxyhemoglobin Carboxyhemoglobin Sodium Potassium Chloride Carbon Dioxide BUN Creatinine Glucose 194 H POC Glucose Hemoglobin A1c Ferritin AST ALT Alkaline Phosphatase Lactate Dehydrogenase C-Reactive Protein Total Protein 8.4 H Albumin 3.8 L Arterial Blood Glucose Coronavirus (PCR) 04/16/21 04/16/21 04/17/21 11:42 11:42 03:50 WBC MCHC RDW 16.0 H Lymph % (Auto) 7.7 L Lymph # (Auto) 0.6 L Seg Neutrophils % 89.8 H Seg Neuts % (Manual) Seg Neutrophils # Seg Neutrophils # Man Lymphocytes # (Manual) D-Dimer ABG pH POC ABG pO2 ABG pO2 ABG O2 Saturation ABG Oxyhemoglobin ABG Sodium ABG Chloride ABG Glucose Oxyhemoglobin Carboxyhemoglobin Sodium Potassium Chloride Carbon Dioxide BUN Creatinine Glucose 195 H POC Glucose Hemoglobin A1c Ferritin 254.3 H AST ALT Alkaline Phosphatase Lactate Dehydrogenase 359 H C-Reactive Protein 15.20 H Total Protein Albumin Arterial Blood Glucose Coronavirus (PCR) 04/17/21 04/17/21 04/17/21 03:50 08:26 08:26 WBC MCHC RDW Lymph % (Auto) Lymph # (Auto) Seg Neutrophils % Seg Neuts % (Manual) Seg Neutrophils # Seg Neutrophils # Man Lymphocytes # (Manual) D-Dimer 262.48 H ABG pH POC ABG pO2 ABG pO2 ABG O2 Saturation ABG Oxyhemoglobin ABG Sodium ABG Chloride ABG Glucose Oxyhemoglobin Carboxyhemoglobin Sodium Potassium Chloride Carbon Dioxide BUN 20 H Creatinine 0.5 L Glucose 249 H 225 H POC Glucose Hemoglobin A1c Ferritin AST ALT Alkaline Phosphatase Lactate Dehydrogenase 338 H C-Reactive Protein 17.20 H Total Protein Albumin 3.2 L Arterial Blood Glucose Coronavirus (PCR) 04/17/21 04/17/21 04/17/21 08:26 15:04 Unknown WBC MCHC RDW Lymph % (Auto) Lymph # (Auto) Seg Neutrophils % Seg Neuts % (Manual) Seg Neutrophils # Seg Neutrophils # Man Lymphocytes # (Manual) D-Dimer ABG pH POC ABG pO2 ABG pO2 ABG O2 Saturation ABG Oxyhemoglobin ABG Sodium ABG Chloride ABG Glucose Oxyhemoglobin Carboxyhemoglobin Sodium Potassium Chloride Carbon Dioxide BUN 20 H Creatinine 0.5 L Glucose 246 H POC Glucose Hemoglobin A1c Ferritin 392.0 H AST ALT Alkaline Phosphatase Lactate Dehydrogenase C-Reactive Protein Total Protein 8.3 H Albumin 3.1 L Arterial Blood Glucose Coronavirus (PCR) Positive A 04/18/21 04/18/21 04/18/21 05:06 05:06 07:36 WBC 11.6 H MCHC RDW 16.1 H Lymph % (Auto) Lymph # (Auto) Seg Neutrophils % Seg Neuts % (Manual) Seg Neutrophils # Seg Neutrophils # Man Lymphocytes # (Manual) D-Dimer ABG pH POC ABG pO2 ABG pO2 ABG O2 Saturation ABG Oxyhemoglobin ABG Sodium ABG Chloride ABG Glucose Oxyhemoglobin Carboxyhemoglobin Sodium Potassium 5.2 H Chloride Carbon Dioxide BUN 22 H Creatinine 0.5 L Glucose 315 H POC Glucose Hemoglobin A1c 8.5 H Ferritin AST ALT Alkaline Phosphatase Lactate Dehydrogenase C-Reactive Protein Total Protein Albumin 3.3 L Arterial Blood Glucose Coronavirus (PCR) 04/18/21 04/18/21 04/18/21 11:59 16:43 23:24 WBC MCHC RDW Lymph % (Auto) Lymph # (Auto) Seg Neutrophils % Seg Neuts % (Manual) Seg Neutrophils # Seg Neutrophils # Man Lymphocytes # (Manual) D-Dimer ABG pH POC ABG pO2 ABG pO2 ABG O2 Saturation ABG Oxyhemoglobin ABG Sodium ABG Chloride ABG Glucose Oxyhemoglobin Carboxyhemoglobin Sodium Potassium Chloride Carbon Dioxide BUN Creatinine Glucose POC Glucose 284 H 273 H 290 H Hemoglobin A1c Ferritin AST ALT Alkaline Phosphatase Lactate Dehydrogenase C-Reactive Protein Total Protein Albumin Arterial Blood Glucose Coronavirus (PCR) 04/19/21 04/19/21 04/19/21 04:19 04:19 08:10 WBC MCHC RDW 15.7 H Lymph % (Auto) Lymph # (Auto) Seg Neutrophils % Seg Neuts % (Manual) Seg Neutrophils # Seg Neutrophils # Man Lymphocytes # (Manual) D-Dimer ABG pH POC ABG pO2 ABG pO2 ABG O2 Saturation ABG Oxyhemoglobin ABG Sodium ABG Chloride ABG Glucose Oxyhemoglobin Carboxyhemoglobin Sodium Potassium Chloride Carbon Dioxide BUN 27 H Creatinine 0.4 L Glucose 184 H POC Glucose 194 H Hemoglobin A1c Ferritin AST ALT Alkaline Phosphatase Lactate Dehydrogenase C-Reactive Protein Total Protein Albumin 3.1 L Arterial Blood Glucose Coronavirus (PCR) 04/19/21 04/19/21 04/19/21 11:38 16:25 22:04 WBC MCHC RDW Lymph % (Auto) Lymph # (Auto) Seg Neutrophils % Seg Neuts % (Manual) Seg Neutrophils # Seg Neutrophils # Man Lymphocytes # (Manual) D-Dimer ABG pH POC ABG pO2 ABG pO2 ABG O2 Saturation ABG Oxyhemoglobin ABG Sodium ABG Chloride ABG Glucose Oxyhemoglobin Carboxyhemoglobin Sodium Potassium Chloride Carbon Dioxide BUN Creatinine Glucose POC Glucose 224 H 297 H 251 H Hemoglobin A1c Ferritin AST ALT Alkaline Phosphatase Lactate Dehydrogenase C-Reactive Protein Total Protein Albumin Arterial Blood Glucose Coronavirus (PCR) 04/20/21 04/20/21 04/20/21 05:28 08:43 16:21 WBC MCHC RDW Lymph % (Auto) Lymph # (Auto) Seg Neutrophils % Seg Neuts % (Manual) Seg Neutrophils # Seg Neutrophils # Man Lymphocytes # (Manual) D-Dimer ABG pH POC ABG pO2 ABG pO2 ABG O2 Saturation ABG Oxyhemoglobin ABG Sodium ABG Chloride ABG Glucose Oxyhemoglobin Carboxyhemoglobin Sodium Potassium Chloride Carbon Dioxide BUN 27 H Creatinine Glucose 192 H POC Glucose 173 H 253 H Hemoglobin A1c Ferritin AST ALT Alkaline Phosphatase Lactate Dehydrogenase C-Reactive Protein Total Protein Albumin 3.0 L Arterial Blood Glucose Coronavirus (PCR) 04/21/21 04/21/21 04/21/21 07:58 12:05 16:08 WBC MCHC RDW Lymph % (Auto) Lymph # (Auto) Seg Neutrophils % Seg Neuts % (Manual) Seg Neutrophils # Seg Neutrophils # Man Lymphocytes # (Manual) D-Dimer ABG pH POC ABG pO2 ABG pO2 ABG O2 Saturation ABG Oxyhemoglobin ABG Sodium ABG Chloride ABG Glucose Oxyhemoglobin Carboxyhemoglobin Sodium Potassium Chloride Carbon Dioxide BUN Creatinine Glucose POC Glucose 140 H 252 H 214 H Hemoglobin A1c Ferritin AST ALT Alkaline Phosphatase Lactate Dehydrogenase C-Reactive Protein Total Protein Albumin Arterial Blood Glucose Coronavirus (PCR) 04/21/21 04/22/21 04/22/21 21:42 08:37 12:01 WBC MCHC RDW Lymph % (Auto) Lymph # (Auto) Seg Neutrophils % Seg Neuts % (Manual) Seg Neutrophils # Seg Neutrophils # Man Lymphocytes # (Manual) D-Dimer ABG pH 7.457 H POC ABG pO2 49.4 L ABG pO2 ABG O2 Saturation ABG Oxyhemoglobin 85.6 L ABG Sodium ABG Chloride ABG Glucose 121 H Oxyhemoglobin Carboxyhemoglobin 0.3 L Sodium Potassium Chloride Carbon Dioxide BUN Creatinine Glucose POC Glucose 162 H 227 H Hemoglobin A1c Ferritin AST ALT Alkaline Phosphatase Lactate Dehydrogenase C-Reactive Protein Total Protein Albumin Arterial Blood Glucose 121 H Coronavirus (PCR) 04/22/21 04/22/21 04/23/21 16:26 22:23 04:52 WBC MCHC RDW 15.7 H Lymph % (Auto) Lymph # (Auto) Seg Neutrophils % Seg Neuts % (Manual) Seg Neutrophils # Seg Neutrophils # Man Lymphocytes # (Manual) D-Dimer ABG pH POC ABG pO2 ABG pO2 ABG O2 Saturation ABG Oxyhemoglobin ABG Sodium ABG Chloride ABG Glucose Oxyhemoglobin Carboxyhemoglobin Sodium Potassium Chloride Carbon Dioxide BUN Creatinine Glucose POC Glucose 200 H 136 H Hemoglobin A1c Ferritin AST ALT Alkaline Phosphatase Lactate Dehydrogenase C-Reactive Protein Total Protein Albumin Arterial Blood Glucose Coronavirus (PCR) 04/23/21 04/23/21 04/23/21 04:52 12:06 17:41 WBC MCHC RDW Lymph % (Auto) Lymph # (Auto) Seg Neutrophils % Seg Neuts % (Manual) Seg Neutrophils # Seg Neutrophils # Man Lymphocytes # (Manual) D-Dimer ABG pH POC ABG pO2 ABG pO2 ABG O2 Saturation ABG Oxyhemoglobin ABG Sodium ABG Chloride ABG Glucose Oxyhemoglobin Carboxyhemoglobin Sodium 136 L Potassium Chloride 97.7 L Carbon Dioxide BUN 23 H Creatinine Glucose 101 H POC Glucose 202 H 169 H Hemoglobin A1c Ferritin AST 46 H ALT Alkaline Phosphatase Lactate Dehydrogenase C-Reactive Protein Total Protein Albumin 3.3 L Arterial Blood Glucose Coronavirus (PCR) 04/23/21 04/24/21 04/24/21 23:08 05:17 08:38 WBC MCHC RDW Lymph % (Auto) Lymph # (Auto) Seg Neutrophils % Seg Neuts % (Manual) Seg Neutrophils # Seg Neutrophils # Man Lymphocytes # (Manual) D-Dimer ABG pH POC ABG pO2 ABG pO2 ABG O2 Saturation ABG Oxyhemoglobin ABG Sodium ABG Chloride ABG Glucose Oxyhemoglobin Carboxyhemoglobin Sodium Potassium Chloride Carbon Dioxide BUN Creatinine Glucose POC Glucose 111 H 108 H 126 H Hemoglobin A1c Ferritin AST ALT Alkaline Phosphatase Lactate Dehydrogenase C-Reactive Protein Total Protein Albumin Arterial Blood Glucose Coronavirus (PCR) 04/24/21 04/24/21 04/24/21 11:54 17:57 21:23 WBC MCHC RDW Lymph % (Auto) Lymph # (Auto) Seg Neutrophils % Seg Neuts % (Manual) Seg Neutrophils # Seg Neutrophils # Man Lymphocytes # (Manual) D-Dimer ABG pH POC ABG pO2 ABG pO2 ABG O2 Saturation ABG Oxyhemoglobin ABG Sodium ABG Chloride ABG Glucose Oxyhemoglobin Carboxyhemoglobin Sodium Potassium Chloride Carbon Dioxide BUN Creatinine Glucose POC Glucose 147 H 177 H 138 H Hemoglobin A1c Ferritin AST ALT Alkaline Phosphatase Lactate Dehydrogenase C-Reactive Protein Total Protein Albumin Arterial Blood Glucose Coronavirus (PCR) 04/25/21 04/25/21 04/25/21 07:06 11:23 15:43 WBC MCHC RDW Lymph % (Auto) Lymph # (Auto) Seg Neutrophils % Seg Neuts % (Manual) Seg Neutrophils # Seg Neutrophils # Man Lymphocytes # (Manual) D-Dimer ABG pH POC ABG pO2 ABG pO2 ABG O2 Saturation ABG Oxyhemoglobin ABG Sodium ABG Chloride ABG Glucose Oxyhemoglobin Carboxyhemoglobin Sodium Potassium Chloride Carbon Dioxide BUN Creatinine Glucose POC Glucose 147 H 169 H 227 H Hemoglobin A1c Ferritin AST ALT Alkaline Phosphatase Lactate Dehydrogenase C-Reactive Protein Total Protein Albumin Arterial Blood Glucose Coronavirus (PCR) 04/25/21 04/26/21 04/26/21 21:22 02:45 05:15 WBC MCHC RDW Lymph % (Auto) Lymph # (Auto) Seg Neutrophils % Seg Neuts % (Manual) Seg Neutrophils # Seg Neutrophils # Man Lymphocytes # (Manual) D-Dimer ABG pH POC ABG pO2 70.7 L ABG pO2 ABG O2 Saturation ABG Oxyhemoglobin 93.0 L ABG Sodium 132.7 L ABG Chloride ABG Glucose 115 H Oxyhemoglobin Carboxyhemoglobin Sodium Potassium Chloride 95.8 L Carbon Dioxide 32 H BUN 20 H Creatinine Glucose 102 H POC Glucose 196 H Hemoglobin A1c Ferritin AST ALT Alkaline Phosphatase Lactate Dehydrogenase C-Reactive Protein Total Protein Albumin Arterial Blood Glucose 115 H Coronavirus (PCR) 04/26/21 04/26/21 04/26/21 11:49 16:09 21:07 WBC MCHC RDW Lymph % (Auto) Lymph # (Auto) Seg Neutrophils % Seg Neuts % (Manual) Seg Neutrophils # Seg Neutrophils # Man Lymphocytes # (Manual) D-Dimer ABG pH POC ABG pO2 ABG pO2 ABG O2 Saturation ABG Oxyhemoglobin ABG Sodium ABG Chloride ABG Glucose Oxyhemoglobin Carboxyhemoglobin Sodium Potassium Chloride Carbon Dioxide BUN Creatinine Glucose POC Glucose 114 H 188 H 136 H Hemoglobin A1c Ferritin AST ALT Alkaline Phosphatase Lactate Dehydrogenase C-Reactive Protein Total Protein Albumin Arterial Blood Glucose Coronavirus (PCR) 04/27/21 04/27/21 04/28/21 17:34 22:12 08:26 WBC MCHC RDW Lymph % (Auto) Lymph # (Auto) Seg Neutrophils % Seg Neuts % (Manual) Seg Neutrophils # Seg Neutrophils # Man Lymphocytes # (Manual) D-Dimer ABG pH POC ABG pO2 ABG pO2 ABG O2 Saturation ABG Oxyhemoglobin ABG Sodium ABG Chloride ABG Glucose Oxyhemoglobin Carboxyhemoglobin Sodium Potassium Chloride Carbon Dioxide BUN Creatinine Glucose POC Glucose 128 H 159 H 69 L Hemoglobin A1c Ferritin AST ALT Alkaline Phosphatase Lactate Dehydrogenase C-Reactive Protein Total Protein Albumin Arterial Blood Glucose Coronavirus (PCR) 04/28/21 04/28/21 04/29/21 12:22 21:11 06:05 WBC MCHC RDW Lymph % (Auto) Lymph # (Auto) Seg Neutrophils % Seg Neuts % (Manual) Seg Neutrophils # Seg Neutrophils # Man Lymphocytes # (Manual) D-Dimer ABG pH POC ABG pO2 ABG pO2 ABG O2 Saturation ABG Oxyhemoglobin ABG Sodium ABG Chloride ABG Glucose Oxyhemoglobin Carboxyhemoglobin Sodium 132 L Potassium Chloride 94.4 L Carbon Dioxide BUN Creatinine 0.2 L D Glucose 140 H POC Glucose 141 H 171 H Hemoglobin A1c Ferritin AST ALT Alkaline Phosphatase Lactate Dehydrogenase C-Reactive Protein Total Protein Albumin Arterial Blood Glucose Coronavirus (PCR) 04/29/21 04/29/21 04/29/21 06:05 07:24 11:36 WBC MCHC 35 H RDW 15.9 H Lymph % (Auto) Lymph # (Auto) Seg Neutrophils % Seg Neuts % (Manual) Seg Neutrophils # Seg Neutrophils # Man Lymphocytes # (Manual) D-Dimer ABG pH POC ABG pO2 ABG pO2 ABG O2 Saturation ABG Oxyhemoglobin ABG Sodium ABG Chloride ABG Glucose Oxyhemoglobin Carboxyhemoglobin Sodium Potassium Chloride Carbon Dioxide BUN Creatinine Glucose POC Glucose 141 H 220 H Hemoglobin A1c Ferritin AST ALT Alkaline Phosphatase Lactate Dehydrogenase C-Reactive Protein Total Protein Albumin Arterial Blood Glucose Coronavirus (PCR) 04/29/21 04/29/21 04/29/21 14:23 15:30 17:06 WBC MCHC RDW Lymph % (Auto) Lymph # (Auto) Seg Neutrophils % Seg Neuts % (Manual) Seg Neutrophils # Seg Neutrophils # Man Lymphocytes # (Manual) D-Dimer ABG pH POC ABG pO2 ABG pO2 52.6 L ABG O2 Saturation 86.4 L ABG Oxyhemoglobin ABG Sodium ABG Chloride ABG Glucose Oxyhemoglobin 84.6 L Carboxyhemoglobin Sodium Potassium Chloride Carbon Dioxide BUN Creatinine Glucose POC Glucose 173 H 158 H Hemoglobin A1c Ferritin AST ALT Alkaline Phosphatase Lactate Dehydrogenase C-Reactive Protein Total Protein Albumin Arterial Blood Glucose Coronavirus (PCR) 04/29/21 04/30/21 04/30/21 21:27 07:16 08:00 WBC MCHC RDW 16.1 H Lymph % (Auto) Lymph # (Auto) Seg Neutrophils % Seg Neuts % (Manual) Seg Neutrophils # Seg Neutrophils # Man Lymphocytes # (Manual) D-Dimer ABG pH POC ABG pO2 ABG pO2 ABG O2 Saturation ABG Oxyhemoglobin ABG Sodium ABG Chloride ABG Glucose Oxyhemoglobin Carboxyhemoglobin Sodium Potassium Chloride Carbon Dioxide BUN Creatinine Glucose POC Glucose 244 H 175 H Hemoglobin A1c Ferritin AST ALT Alkaline Phosphatase Lactate Dehydrogenase C-Reactive Protein Total Protein Albumin Arterial Blood Glucose Coronavirus (PCR) 04/30/21 04/30/21 04/30/21 08:00 08:00 11:03 WBC MCHC RDW Lymph % (Auto) Lymph # (Auto) Seg Neutrophils % Seg Neuts % (Manual) Seg Neutrophils # Seg Neutrophils # Man Lymphocytes # (Manual) D-Dimer 1796.87 H ABG pH POC ABG pO2 ABG pO2 ABG O2 Saturation ABG Oxyhemoglobin ABG Sodium ABG Chloride ABG Glucose Oxyhemoglobin Carboxyhemoglobin Sodium 135 L Potassium Chloride 96.3 L Carbon Dioxide BUN Creatinine 0.2 L Glucose 153 H POC Glucose 183 H Hemoglobin A1c Ferritin AST 41 H ALT 76 H Alkaline Phosphatase 160 H Lactate Dehydrogenase 522 H C-Reactive Protein Total Protein 6.1 L Albumin 3.1 L Arterial Blood Glucose Coronavirus (PCR) 04/30/21 04/30/21 05/01/21 17:04 22:17 05:39 WBC MCHC RDW Lymph % (Auto) Lymph # (Auto) Seg Neutrophils % Seg Neuts % (Manual) Seg Neutrophils # Seg Neutrophils # Man Lymphocytes # (Manual) D-Dimer ABG pH POC ABG pO2 ABG pO2 ABG O2 Saturation ABG Oxyhemoglobin ABG Sodium ABG Chloride ABG Glucose Oxyhemoglobin Carboxyhemoglobin Sodium 133 L Potassium Chloride 92.1 L Carbon Dioxide BUN 24 H Creatinine 0.4 L D Glucose 269 H POC Glucose 167 H 208 H Hemoglobin A1c Ferritin AST ALT 66 H Alkaline Phosphatase 142 H Lactate Dehydrogenase C-Reactive Protein Total Protein Albumin 3.2 L Arterial Blood Glucose Coronavirus (PCR) 05/01/21 05/01/21 05/01/21 05:39 05:39 07:45 WBC MCHC RDW 16.0 H Lymph % (Auto) Lymph # (Auto) Seg Neutrophils % Seg Neuts % (Manual) Seg Neutrophils # Seg Neutrophils # Man Lymphocytes # (Manual) D-Dimer 3984.95 H ABG pH POC ABG pO2 ABG pO2 ABG O2 Saturation ABG Oxyhemoglobin ABG Sodium ABG Chloride ABG Glucose Oxyhemoglobin Carboxyhemoglobin Sodium Potassium Chloride Carbon Dioxide BUN Creatinine Glucose POC Glucose 229 H Hemoglobin A1c Ferritin AST ALT Alkaline Phosphatase Lactate Dehydrogenase C-Reactive Protein Total Protein Albumin Arterial Blood Glucose Coronavirus (PCR) 05/01/21 05/01/21 05/01/21 12:10 15:46 21:06 WBC MCHC RDW Lymph % (Auto) Lymph # (Auto) Seg Neutrophils % Seg Neuts % (Manual) Seg Neutrophils # Seg Neutrophils # Man Lymphocytes # (Manual) D-Dimer ABG pH POC ABG pO2 ABG pO2 ABG O2 Saturation ABG Oxyhemoglobin ABG Sodium ABG Chloride ABG Glucose Oxyhemoglobin Carboxyhemoglobin Sodium Potassium Chloride Carbon Dioxide BUN Creatinine Glucose POC Glucose 296 H 279 H 232 H Hemoglobin A1c Ferritin AST ALT Alkaline Phosphatase Lactate Dehydrogenase C-Reactive Protein Total Protein Albumin Arterial Blood Glucose Coronavirus (PCR) 05/02/21 05/02/21 05/02/21 04:55 04:55 04:55 WBC MCHC RDW 16.1 H Lymph % (Auto) Lymph # (Auto) Seg Neutrophils % Seg Neuts % (Manual) Seg Neutrophils # Seg Neutrophils # Man Lymphocytes # (Manual) D-Dimer 1401.08 H ABG pH POC ABG pO2 ABG pO2 ABG O2 Saturation ABG Oxyhemoglobin ABG Sodium ABG Chloride ABG Glucose Oxyhemoglobin Carboxyhemoglobin Sodium 131 L Potassium Chloride 95.5 L Carbon Dioxide BUN 20 H Creatinine 0.3 L Glucose 288 H POC Glucose Hemoglobin A1c Ferritin AST ALT Alkaline Phosphatase Lactate Dehydrogenase C-Reactive Protein Total Protein 6.0 L Albumin 3.1 L Arterial Blood Glucose Coronavirus (PCR) 05/02/21 05/02/21 05/02/21 07:53 11:45 15:25 WBC MCHC RDW Lymph % (Auto) Lymph # (Auto) Seg Neutrophils % Seg Neuts % (Manual) Seg Neutrophils # Seg Neutrophils # Man Lymphocytes # (Manual) D-Dimer ABG pH POC ABG pO2 ABG pO2 ABG O2 Saturation ABG Oxyhemoglobin ABG Sodium ABG Chloride ABG Glucose Oxyhemoglobin Carboxyhemoglobin Sodium Potassium Chloride Carbon Dioxide BUN Creatinine Glucose POC Glucose 180 H 228 H 275 H Hemoglobin A1c Ferritin AST ALT Alkaline Phosphatase Lactate Dehydrogenase C-Reactive Protein Total Protein Albumin Arterial Blood Glucose Coronavirus (PCR) 05/02/21 05/03/21 05/03/21 22:56 04:30 04:49 WBC MCHC RDW Lymph % (Auto) Lymph # (Auto) Seg Neutrophils % Seg Neuts % (Manual) Seg Neutrophils # Seg Neutrophils # Man Lymphocytes # (Manual) D-Dimer ABG pH 7.229 L POC ABG pO2 65.3 L ABG pO2 ABG O2 Saturation ABG Oxyhemoglobin 87.8 L ABG Sodium 133.0 L ABG Chloride 97.0 L ABG Glucose 403 H Oxyhemoglobin Carboxyhemoglobin Sodium 130 L Potassium Chloride 94.9 L Carbon Dioxide BUN 20 H Creatinine 0.5 L D Glucose 359 H POC Glucose 293 H Hemoglobin A1c Ferritin AST 54 H ALT 75 H Alkaline Phosphatase 138 H Lactate Dehydrogenase C-Reactive Protein Total Protein Albumin 3.6 L Arterial Blood Glucose 403 H Coronavirus (PCR) 05/03/21 05/03/21 05/03/21 05:27 11:26 17:57 WBC MCHC RDW Lymph % (Auto) Lymph # (Auto) Seg Neutrophils % Seg Neuts % (Manual) Seg Neutrophils # Seg Neutrophils # Man Lymphocytes # (Manual) D-Dimer ABG pH POC ABG pO2 ABG pO2 ABG O2 Saturation ABG Oxyhemoglobin ABG Sodium ABG Chloride ABG Glucose Oxyhemoglobin Carboxyhemoglobin Sodium Potassium Chloride Carbon Dioxide BUN Creatinine Glucose POC Glucose 361 H 297 H 226 H Hemoglobin A1c Ferritin AST ALT Alkaline Phosphatase Lactate Dehydrogenase C-Reactive Protein Total Protein Albumin Arterial Blood Glucose Coronavirus (PCR) 05/03/21 05/04/21 05/04/21 23:12 05:12 07:30 WBC MCHC RDW Lymph % (Auto) Lymph # (Auto) Seg Neutrophils % Seg Neuts % (Manual) Seg Neutrophils # Seg Neutrophils # Man Lymphocytes # (Manual) D-Dimer ABG pH POC ABG pO2 ABG pO2 ABG O2 Saturation ABG Oxyhemoglobin ABG Sodium ABG Chloride ABG Glucose Oxyhemoglobin Carboxyhemoglobin Sodium Potassium Chloride Carbon Dioxide BUN Creatinine Glucose POC Glucose 282 H 285 H 254 H Hemoglobin A1c Ferritin AST ALT Alkaline Phosphatase Lactate Dehydrogenase C-Reactive Protein Total Protein Albumin Arterial Blood Glucose Coronavirus (PCR) 05/04/21 05/04/21 05/04/21 08:58 11:45 16:07 WBC MCHC RDW Lymph % (Auto) Lymph # (Auto) Seg Neutrophils % Seg Neuts % (Manual) Seg Neutrophils # Seg Neutrophils # Man Lymphocytes # (Manual) D-Dimer ABG pH POC ABG pO2 ABG pO2 ABG O2 Saturation ABG Oxyhemoglobin ABG Sodium ABG Chloride ABG Glucose Oxyhemoglobin Carboxyhemoglobin Sodium 134 L Potassium Chloride Carbon Dioxide BUN 20 H Creatinine 0.3 L Glucose 267 H POC Glucose 244 H 297 H Hemoglobin A1c Ferritin AST ALT Alkaline Phosphatase Lactate Dehydrogenase C-Reactive Protein Total Protein 6.0 L Albumin 3.2 L Arterial Blood Glucose Coronavirus (PCR) 05/04/21 05/05/21 05/05/21 23:32 05:00 05:13 WBC MCHC RDW Lymph % (Auto) Lymph # (Auto) Seg Neutrophils % Seg Neuts % (Manual) Seg Neutrophils # Seg Neutrophils # Man Lymphocytes # (Manual) D-Dimer ABG pH POC ABG pO2 ABG pO2 ABG O2 Saturation ABG Oxyhemoglobin ABG Sodium ABG Chloride ABG Glucose Oxyhemoglobin Carboxyhemoglobin Sodium 132 L Potassium Chloride 96.4 L Carbon Dioxide BUN 22 H Creatinine 0.3 L Glucose 228 H POC Glucose 154 H 260 H Hemoglobin A1c Ferritin AST ALT 67 H Alkaline Phosphatase Lactate Dehydrogenase C-Reactive Protein Total Protein 6.1 L Albumin 3.2 L Arterial Blood Glucose Coronavirus (PCR) 05/05/21 05/05/21 05/05/21 11:32 17:49 23:07 WBC MCHC RDW Lymph % (Auto) Lymph # (Auto) Seg Neutrophils % Seg Neuts % (Manual) Seg Neutrophils # Seg Neutrophils # Man Lymphocytes # (Manual) D-Dimer ABG pH POC ABG pO2 ABG pO2 ABG O2 Saturation ABG Oxyhemoglobin ABG Sodium ABG Chloride ABG Glucose Oxyhemoglobin Carboxyhemoglobin Sodium Potassium Chloride Carbon Dioxide BUN Creatinine Glucose POC Glucose 279 H 308 H 213 H Hemoglobin A1c Ferritin AST ALT Alkaline Phosphatase Lactate Dehydrogenase C-Reactive Protein Total Protein Albumin Arterial Blood Glucose Coronavirus (PCR) 05/06/21 05/06/21 05/06/21 05:00 05:00 05:20 WBC MCHC RDW 16.8 H Lymph % (Auto) Lymph # (Auto) Seg Neutrophils % Seg Neuts % (Manual) 99.0 H Seg Neutrophils # Seg Neutrophils # Man 10.9 H Lymphocytes # (Manual) 0.0 L D-Dimer ABG pH POC ABG pO2 ABG pO2 ABG O2 Saturation ABG Oxyhemoglobin ABG Sodium ABG Chloride ABG Glucose Oxyhemoglobin Carboxyhemoglobin Sodium 133 L Potassium Chloride Carbon Dioxide BUN 21 H Creatinine 0.3 L Glucose 259 H POC Glucose 308 H Hemoglobin A1c Ferritin AST ALT Alkaline Phosphatase Lactate Dehydrogenase C-Reactive Protein Total Protein Albumin 3.2 L Arterial Blood Glucose Coronavirus (PCR) 05/06/21 05/06/21 05/06/21 11:24 17:54 21:32 WBC MCHC RDW Lymph % (Auto) Lymph # (Auto) Seg Neutrophils % Seg Neuts % (Manual) Seg Neutrophils # Seg Neutrophils # Man Lymphocytes # (Manual) D-Dimer ABG pH POC ABG pO2 ABG pO2 ABG O2 Saturation ABG Oxyhemoglobin ABG Sodium ABG Chloride ABG Glucose Oxyhemoglobin Carboxyhemoglobin Sodium Potassium Chloride Carbon Dioxide BUN Creatinine Glucose POC Glucose 262 H 124 H 246 H Hemoglobin A1c Ferritin AST ALT Alkaline Phosphatase Lactate Dehydrogenase C-Reactive Protein Total Protein Albumin Arterial Blood Glucose Coronavirus (PCR) 05/06/21 05/07/21 05/07/21 23:10 04:54 04:54 WBC MCHC RDW Lymph % (Auto) Lymph # (Auto) Seg Neutrophils % Seg Neuts % (Manual) Seg Neutrophils # Seg Neutrophils # Man Lymphocytes # (Manual) D-Dimer 1609.28 H ABG pH POC ABG pO2 ABG pO2 ABG O2 Saturation ABG Oxyhemoglobin ABG Sodium ABG Chloride ABG Glucose Oxyhemoglobin Carboxyhemoglobin Sodium 136 L Potassium Chloride Carbon Dioxide BUN 23 H Creatinine 0.3 L Glucose 110 H POC Glucose 249 H Hemoglobin A1c Ferritin AST ALT Alkaline Phosphatase Lactate Dehydrogenase C-Reactive Protein Total Protein 6.2 L Albumin 3.0 L Arterial Blood Glucose Coronavirus (PCR) 05/07/21 05/07/21 05/07/21 04:54 04:54 11:41 WBC MCHC RDW Lymph % (Auto) Lymph # (Auto) Seg Neutrophils % Seg Neuts % (Manual) Seg Neutrophils # Seg Neutrophils # Man Lymphocytes # (Manual) D-Dimer ABG pH POC ABG pO2 ABG pO2 ABG O2 Saturation ABG Oxyhemoglobin ABG Sodium ABG Chloride ABG Glucose Oxyhemoglobin Carboxyhemoglobin Sodium Potassium Chloride Carbon Dioxide BUN Creatinine Glucose POC Glucose 118 H Hemoglobin A1c Ferritin 296.1 H AST ALT Alkaline Phosphatase Lactate Dehydrogenase 724 H C-Reactive Protein Total Protein Albumin Arterial Blood Glucose Coronavirus (PCR) 05/07/21 05/07/21 05/08/21 16:43 22:34 06:44 WBC MCHC RDW Lymph % (Auto) Lymph # (Auto) Seg Neutrophils % Seg Neuts % (Manual) Seg Neutrophils # Seg Neutrophils # Man Lymphocytes # (Manual) D-Dimer ABG pH POC ABG pO2 ABG pO2 ABG O2 Saturation ABG Oxyhemoglobin ABG Sodium ABG Chloride ABG Glucose Oxyhemoglobin Carboxyhemoglobin Sodium Potassium Chloride Carbon Dioxide BUN Creatinine Glucose POC Glucose 159 H 233 H 235 H Hemoglobin A1c Ferritin AST ALT Alkaline Phosphatase Lactate Dehydrogenase C-Reactive Protein Total Protein Albumin Arterial Blood Glucose Coronavirus (PCR) 05/08/21 05/08/21 05/08/21 07:49 11:56 17:13 WBC MCHC RDW Lymph % (Auto) Lymph # (Auto) Seg Neutrophils % Seg Neuts % (Manual) Seg Neutrophils # Seg Neutrophils # Man Lymphocytes # (Manual) D-Dimer ABG pH POC ABG pO2 ABG pO2 ABG O2 Saturation ABG Oxyhemoglobin ABG Sodium ABG Chloride ABG Glucose Oxyhemoglobin Carboxyhemoglobin Sodium Potassium Chloride Carbon Dioxide BUN Creatinine Glucose POC Glucose 219 H 184 H 182 H Hemoglobin A1c Ferritin AST ALT Alkaline Phosphatase Lactate Dehydrogenase C-Reactive Protein Total Protein Albumin Arterial Blood Glucose Coronavirus (PCR) 05/08/21 05/09/21 05/09/21 23:35 05:20 05:20 WBC MCHC RDW Lymph % (Auto) Lymph # (Auto) Seg Neutrophils % Seg Neuts % (Manual) Seg Neutrophils # Seg Neutrophils # Man Lymphocytes # (Manual) D-Dimer 1003.87 H ABG pH POC ABG pO2 ABG pO2 ABG O2 Saturation ABG Oxyhemoglobin ABG Sodium ABG Chloride ABG Glucose Oxyhemoglobin Carboxyhemoglobin Sodium Potassium Chloride Carbon Dioxide BUN Creatinine Glucose POC Glucose 198 H Hemoglobin A1c Ferritin 378.7 H AST ALT Alkaline Phosphatase Lactate Dehydrogenase C-Reactive Protein Total Protein Albumin Arterial Blood Glucose Coronavirus (PCR) 05/09/21 05/09/21 05/09/21 05:20 06:04 12:53 WBC MCHC RDW Lymph % (Auto) Lymph # (Auto) Seg Neutrophils % Seg Neuts % (Manual) Seg Neutrophils # Seg Neutrophils # Man Lymphocytes # (Manual) D-Dimer ABG pH POC ABG pO2 ABG pO2 ABG O2 Saturation ABG Oxyhemoglobin ABG Sodium ABG Chloride ABG Glucose Oxyhemoglobin Carboxyhemoglobin Sodium Potassium Chloride Carbon Dioxide BUN Creatinine Glucose POC Glucose 159 H 180 H Hemoglobin A1c Ferritin AST ALT Alkaline Phosphatase Lactate Dehydrogenase 558 H C-Reactive Protein 2.40 H Total Protein Albumin Arterial Blood Glucose Coronavirus (PCR) 05/09/21 05/09/21 05/10/21 16:43 21:27 10:18 WBC MCHC RDW Lymph % (Auto) Lymph # (Auto) Seg Neutrophils % Seg Neuts % (Manual) Seg Neutrophils # Seg Neutrophils # Man Lymphocytes # (Manual) D-Dimer ABG pH POC ABG pO2 ABG pO2 ABG O2 Saturation ABG Oxyhemoglobin ABG Sodium ABG Chloride ABG Glucose Oxyhemoglobin Carboxyhemoglobin Sodium Potassium Chloride Carbon Dioxide BUN Creatinine Glucose POC Glucose 212 H 285 H 261 H Hemoglobin A1c Ferritin AST ALT Alkaline Phosphatase Lactate Dehydrogenase C-Reactive Protein Total Protein Albumin Arterial Blood Glucose Coronavirus (PCR) 05/10/21 05/10/21 05/11/21 17:58 18:02 00:29 WBC MCHC RDW Lymph % (Auto) Lymph # (Auto) Seg Neutrophils % Seg Neuts % (Manual) Seg Neutrophils # Seg Neutrophils # Man Lymphocytes # (Manual) D-Dimer ABG pH POC ABG pO2 ABG pO2 ABG O2 Saturation ABG Oxyhemoglobin ABG Sodium ABG Chloride ABG Glucose Oxyhemoglobin Carboxyhemoglobin Sodium Potassium Chloride Carbon Dioxide BUN Creatinine Glucose POC Glucose 213 H 179 H 149 H Hemoglobin A1c Ferritin AST ALT Alkaline Phosphatase Lactate Dehydrogenase C-Reactive Protein Total Protein Albumin Arterial Blood Glucose Coronavirus (PCR) 05/11/21 05/11/21 05:22 11:32 WBC MCHC RDW Lymph % (Auto) Lymph # (Auto) Seg Neutrophils % Seg Neuts % (Manual) Seg Neutrophils # Seg Neutrophils # Man Lymphocytes # (Manual) D-Dimer ABG pH POC ABG pO2 ABG pO2 ABG O2 Saturation ABG Oxyhemoglobin ABG Sodium ABG Chloride ABG Glucose Oxyhemoglobin Carboxyhemoglobin Sodium Potassium Chloride Carbon Dioxide BUN Creatinine Glucose POC Glucose 162 H 179 H Hemoglobin A1c Ferritin AST ALT Alkaline Phosphatase Lactate Dehydrogenase C-Reactive Protein Total Protein Albumin Arterial Blood Glucose Coronavirus (PCR)
[2021-05-11] MEDS: methylPREDNISolone Sod Succinate 125 MG/2 ML INJ IV SCH ×3 (14:51→22:18)
[2021-05-11 17:34] LABS: Alanine Aminotransferase 60 units/L (7-56); Albumin 3.1 g/dL (3.9-5); Blood Urea Nitrogen 21 mg/dL (7-17); Hemolysis Index 12
[2021-05-11 17:39] LABS: BUN/Creatinine Ratio 70
[2021-05-11 18:21] LABS: Basophils # (Auto) 0.2 K/mm3 (0.0-0.1); Basophils % (Auto) 1.4 % (0.0-1.8); Eosinophils # (Auto) 0.1 K/mm3 (0.0-0.4); Eosinophils % (Auto) 0.4 % (0.0-4.3); Hematocrit 41.8 % (30.3-42.9); Hemoglobin 13.8 gm/dl (10.1-14.3); Lymphocytes # (Auto) 0.7 K/mm3 (1.2-5.4); Lymphocytes % (Auto) 4.9 % (13.4-35.0); Mean Corpuscular HGB Conc 33 % (30-34); Mean Corpuscular Volume 90 fl (79-97); Monocytes # (Auto) 0.5 K/mm3 (0.0-0.8); Monocytes % (Auto) 3.6 % (0.0-7.3); Platelet Count 244 K/mm3 (140-440); Red Blood Count 4.64 M/mm3 (3.65-5.03); Red Cell Distribution Width 18.9 % (13.2-15.2)
[2021-05-11] MEDS: HYPROMELLOSE 0.5% OPHTH SOLN 15 ML OU PRN (22:17)
[2021-05-11] MEDS: SENNOSIDES 8.6 MG TAB PO SCH (22:18)
[2021-05-11] MEDS: ACETAMINOPHEN 325 MG TAB PO PRN (23:06)
[2021-05-12] MEDS: INSULIN REGULAR, HUMAN 100 UNITS/1 ML SUB-Q SCH ×4 (02:27→17:49)
[2021-05-12 05:17] LABS: Hematocrit 38.8 % (30.3-42.9); Hemoglobin 13.1 gm/dl (10.1-14.3); Mean Corpuscular HGB Conc 34 % (30-34); Mean Corpuscular Volume 92 fl (79-97); Platelet Count 164 K/mm3 (140-440); Red Blood Count 4.24 M/mm3 (3.65-5.03); Red Cell Distribution Width 18.4 % (13.2-15.2)
[2021-05-12] MEDS: methylPREDNISolone Sod Succinate 125 MG/2 ML INJ IV SCH ×2 (05:17→13:39)
[2021-05-12] MEDS: INSULIN LISPRO 100 UNIT/ML SUB-Q SCH ×3 (05:20→17:49)
[2021-05-12] MEDS: ENOXAPARIN 80 MG/0.8 ML INJ SUB-Q SCH ×2 (05:22→17:31)
[2021-05-12] MEDS: MINERAL OIL/PETROLATUM, WHITE OPHTH OINT 3.5 GM OU SCH ×2 (05:25→13:39)
[2021-05-12 05:36] LABS: Alanine Aminotransferase 54 units/L (7-56); Blood Urea Nitrogen 18 mg/dL (7-17); Calcium 9.1 mg/dL (8.4-10.2); Hemolysis Index 5
[2021-05-12 07:05] LABS: BUN/Creatinine Ratio 90
--- NOTE | 2021-05-12 07:52 | Progress Note ---
Assessment and Plan Assessment and plan: This is a 50-year-old female with GERD, obesity, HLD who presented to emergency department on 04/16 with complaints of "I cannot breathe" stating that she experienced subjective fever, shortness of breath, malaise, body aches, and dry cough over the past week via EMS. In the emergency department patient was found to have a pulse ox of 86% on room air with exertion. CXR revealed bilateral pneumonia. Patient was admitted to the hospital service to the floor with acute hypoxic respiratory failure and because of COVID-19 PUI. Of note patient is unvaccinated for coronavirus. Now subsequently transferred to medical floor from [facility].. Assessment and plan: NEURO- acute pain; anxiety -PRN tylenol -S/p dexamethasone for comfort -Follows commands and RAY -PRN pain meds -Patient is Kiswahili-speaking -Right eye- s/p 5 d course of cipro drops. suspect viral conjunctivitis. lubricating eye drops. supportive management. -Family updated on plan of care discussed with daughter over phone. CV- ST -SR-ST -S/p pressors now discontinued -MAP goal 65 -Pressure monitor per protocol Resp- acute hypoxic resp failure due to covid19 -S/p BiPAP, now discontinued -Currently on high per nasal cannula at flow rate 40 L/min, FiO2 90% -See RT notes for titration -Albuterol as needed -Pulmonary hygiene -Pulmonology following CTA chest ordered, patient could not tolerate today will reattempt tomorrow. GI- risk for protein gisella malnutrition given inc metabolic demand with resp insufficiency -TPN earlier in hospital admission due to BiPAP however now patient is tolerating p.o. -Patient on a GI soft diet with aspiration precautions -Nutrition following -Bowel regimen: Colace, senna, MiraLAX -PPI - volume overload; hyponatremia -Last 24 hours -125 -Trend BMP -Replace electrolytes as needed -Monitor intake and output Heme- coagulopathy of covid; on AC -Subcu heparin -Trend CBC -Transfuse for hemoglobin less than 7 -Bilateral lower extremity Doppler ultrasounds negative for DVT ; no CTA or VQ scan to rule out PE ID-covid19 pna; sepsis; viral conjunctivitis right eye: Oral candidiasis -zinc/vitC/D -methylpred 125 mg every 8; wean as appropriate -Infectious disease consulted, patient recommendations -S/p Actemra and remdesivir -Trend temperature and WBC curve -Follow culture data Nystatin solution ordered. Endo- hyperglycemia; obesity -glargine HS -SSI AC/HS -Avoid hypoglycemia Hospital course to date: 04/17: Patient seen and examined, still uncomfortable with Hypoxic respiratory failure and on oxygen, will continue to steroids therapy, start patient on Remdesivir, ID consulted, Pulmonary consult placed. 04/18: Patient seen and examined, she is currently being changed to High flow NC due to worsening HYPOXIA, will transfer to IMCU, Pulmonary and ID following. Will also give a dose of Lasix today. Monitor Inflammatory markers. 04/19: Patient seen and examined still on high flow due to hypoxia. Appears a bit more comfortable today than yesterday. Cough has decreased in frequency. We will continue high dose Dexameathasone to complete 10 days. continue on Remdesivir 200 mg IV q day x 1 followed by 100 mg IV q day x 4 days -Obtain q48-72h inflammatory markers - ferritin, Ddimer, CRP, LDH Will also give lasix daily for the next 3 days and monitor renal function. Family updated. Continue prone positioning as tolerated 04/20: Patient has some desaturation episodes yesterday was placed on BiPAP. Discussed with ICU team for bed availability for patient to be transferred up. Continue prone position as tolerated. 04/21: Patient remains with profound hypoxia secondary to COVID pneumonia. -Continue steroids -Continue remedesir -S/P Actmera 04/22: Patient remains on steroids and remdesivir. ABG shows persistent hypoxia. We will continue current management additional trial of Lasix for the next few days to see if any improvement. Monitor inflammatory markers as needed. Prognosis is guarded remains on high flow 04/23; patient was treated with remdesivir and Actemra. Continue steroid. Patient's prognosis is guarded. 04/24; patient is on steroid. Patient is currently on BiPAP. Prognosis is guarded. Pulmonary is following. Patient was given Lasix and Ativan. 04/25; continue steroid. Patient was on 40 L of high flow oxygen with saturation was 88%. Pulmonary is following. Prognosis is guarded. Patient was given lasix and ativan. 04/26; patient is on BiPAP and Precedex. Prognosis is guarded. 04/27; patient is on BiPAP and Precedex. Patient will finish steroid today and will start on Solu-Medrol tomorrow. Prognosis is guarded. Blood pressure is better today. Hold Lasix. 04/28 patient is on 100 Fio2 via BIPAP. moderately dyspneic, pulmonary note reviewed, lab results reviewed 04/29 no acute events- see systems review above 04/30 no acute events overnight - on airvo today- TPN started -see systems review above 05-01 no acute events overnight- tolerating airvo- see systems review above 05-02 no acute events overnight; tolerating airvo this AM- see systems review above 05/03: Patient has shown remarkable improvement, weaned down to 3 L and satting 95%. Will attempt to walk test today in anticipation for discharge tomorrow. Discussed with PT team to walk the patient today also. 05/04: Patient appears to have had a decline he was down to 3 L satting 95% with anticipation for discharge today but desatted down to 85% on room air and only 88% on 5 L he is now back at 8 L. I encourage incentive spirometer. While he is on Xarelto and has completed the severe steroids which was subsequently changed to Solu-Medrol I will go ahead and order a CTA to make sure that there is not a failure of Xarelto. We will continue to wean as tolerated discussed with nursing staff at bedside. 05/05/21 Patient is on 40 L of oxygen with 80% FiO2. Patient is encouraged to turn to the side more frequently. Patient is denied any shortness of breath and coughing. No other complaints. Follow the CT scan of the chest. Status post remdesivir and Actemra.Solu-Medrol 40 mg IV every 8 hours. Continue current management. Pulmonary follow-up. 05/06: Patient remains on high flow nasal cannula but states that she feels slightly better with the help of translation from her cousin Aspen. Patient is still awaiting a bed on the floor. Patient diet is being tolerated now so we will stop TPN will be stopped tonight. 05/07/2021: Patient remains on 40 L/min oxygen at 90% FiO2. Attempt made for CTA chest to rule out pulmonary embolism however patient desatted while at CT. Study was aborted, will reattempt again tomorrow. will follow along with renetta bertrand. Discussed/updated patient and patient's daughter over phone regarding any active clinical issues. Patient only complaint is oral pain from oral candidia sis noted on exam. Nystatin oral solution ordered. Daughter also voiced concern over patient eye drops which she stated that patient needed to restart from home. However she did not remember name of drops. advised daughter to call our hospital with drop name and dosing and we will restart. 05/08/2021: Started anticoagulation with Lovenox yesterday. Awaiting CTA chest completion. Will attempt to de-escalate oxygen as patient tolerates 05/09/2021: Continues to have high O2 requirements. CTA chest aborted due to patient not being able to tolerate transport to and from scanner. Will follow pulmonology recommendations 05/10/2021: Steroids increased yesterday to 125 mg every 8 hour. Continuing full dose anticoagulation. Respiratory status still remains challenging as it is difficult to wean patient off of hifnc. Minimal improvement compared to last few days. Plan to prone patient today. Otherwise: Some improvement in eye symptoms compared to yesterday. Will order more lubricating eye drops 05/11/2021: Still requires high flow nasal cannula, FiO2 de-escalated to 85%.. Encourage continued proning, patient care team aware. Continue with steroids, anticoagulation, antibiotics. 05/12/2021: High flow nasal cannula remains at flow rate 35 L/min and FiO2 of 85%. Patient appears more comfortable today. Started insulin regimen due to hyperglycemia likely multifactorial in the setting of underlying diabetes and high-dose steroids. Continue to encourage patient to prone. Discussed with pulmonology regarding patient underlying anxiety. We both agreed that low-dose BuSpar might be beneficial for the patient. History Interval history: Updated patient on labs and clinical progression. Appears more comfortable on my encounter. Encourage the patient to continue self proning and discussed with balance staff staker to continue to attempt de-escalation of O2 requirements. Hospitalist Physical - Physical exam Narrative exam: Constitutional: no acute distress, alert, on hi flow nasal cannula Eyes: non-icteric, right eye erythematous some improvement noted ENT: dry, patchy white plaques noted Neck: supple Effort: normal Ascultation: Bilateral: diminished breath sounds Cardiovascular: regular rate and rhythm Gastrointestinal: normoactive bowel sounds, soft, non-tender, non-distended Integumentary: normal Extremities: no cyanosis, no edema, pink and warm Neurologic: normal mental status, non-focal exam, pupils equal and round, CN II- XII normal Psychiatric: mood appropriate, affect normal - Constitutional Vitals: Temp Pulse Resp BP Pulse Ox 98.0 F 70 22 126/78 98 05/12/21 06:20 05/12/21 06:20 05/12/21 06:20 05/12/21 06:20 05/12/21 06:20 General appearance: Present: mild distress Results - Labs CBC & Chem 7: 05/12/21 04:05 05/12/21 04:05 Labs: Laboratory Last Values WBC 6.8 K/mm3 (4.5-11.0) 05/12/21 04:05 RBC 4.24 M/mm3 (3.65-5.03) 05/12/21 04:05 Hgb 13.1 gm/dl (10.1-14.3) 05/12/21 04:05 Hct 38.8 % (30.3-42.9) 05/12/21 04:05 MCV 92 fl (79-97) 05/12/21 04:05 MCH 31 pg (28-32) 05/12/21 04:05 MCHC 34 % (30-34) 05/12/21 04:05 RDW 18.4 % (13.2-15.2) H 05/12/21 04:05 Plt Count 164 K/mm3 (140-440) 05/12/21 04:05 Lymph % (Auto) 4.9 % (13.4-35.0) L 05/11/21 17:00 Sullivan % (Auto) 3.6 % (0.0-7.3) 05/11/21 17:00 Eos % (Auto) 0.4 % (0.0-4.3) 05/11/21 17:00 Baso % (Auto) 1.4 % (0.0-1.8) 05/11/21 17:00 Lymph # (Auto) 0.7 K/mm3 (1.2-5.4) L 05/11/21 17:00 Sullivan # (Auto) 0.5 K/mm3 (0.0-0.8) 05/11/21 17:00 Eos # (Auto) 0.1 K/mm3 (0.0-0.4) 05/11/21 17:00 Baso # (Auto) 0.2 K/mm3 (0.0-0.1) H 05/11/21 17:00 Add Manual Diff Complete 05/06/21 05:00 Total Counted 100 05/06/21 05:00 Seg Neutrophils % Tuck Pointer Helper 05/12/21 04:05 Seg Neuts % (Manual) 99.0 % (40.0-70.0) H 05/06/21 05:00 Monocytes % (Manual) 1.0 % (0.0-7.3) 05/06/21 05:00 Nucleated RBC % Not Reportable 05/06/21 05:00 Seg Neutrophils # 13.3 K/mm3 (1.8-7.7) H 05/11/21 17:00 Seg Neutrophils # Man 10.9 K/mm3 (1.8-7.7) H 05/06/21 05:00 Band Neutrophils # 0.0 K/mm3 05/06/21 05:00 Lymphocytes # (Manual) 0.0 K/mm3 (1.2-5.4) L 05/06/21 05:00 Abs React Lymphs (Man) 0.0 K/mm3 05/06/21 05:00 Monocytes # (Manual) 0.1 K/mm3 (0.0-0.8) 05/06/21 05:00 Eosinophils # (Manual) 0.0 K/mm3 (0.0-0.4) 05/06/21 05:00 Basophils # (Manual) 0.0 K/mm3 (0.0-0.1) 05/06/21 05:00 Metamyelocytes # 0.0 K/mm3 05/06/21 05:00 Myelocytes # 0.0 K/mm3 05/06/21 05:00 Promyelocytes # 0.0 K/mm3 05/06/21 05:00 Blast Cells # 0.0 K/mm3 05/06/21 05:00 WBC Morphology Not Reportable 05/06/21 05:00 Hypersegmented Neuts Not Reportable 05/06/21 05:00 Hyposegmented Neuts Not Reportable 05/06/21 05:00 Hypogranular Neuts Not Reportable 05/06/21 05:00 Smudge Cells Not Reportable 05/06/21 05:00 Toxic Granulation Not Reportable 05/06/21 05:00 Toxic Vacuolation Not Reportable 05/06/21 05:00 Dohle Bodies Not Reportable 05/06/21 05:00 Pelger-Huet Anomaly Not Reportable 05/06/21 05:00 Janelle Rods Not Reportable 05/06/21 05:00 Platelet Estimate Consistent w auto 05/06/21 05:00 Clumped Platelets Not Reportable 05/06/21 05:00 Plt Clumps, EDTA Not Reportable 05/06/21 05:00 Large Platelets Not Reportable 05/06/21 05:00 Giant Platelets Not Reportable 05/06/21 05:00 Platelet Satelliting Not Reportable 05/06/21 05:00 Plt Morphology Comment Not Reportable 05/06/21 05:00 RBC Morphology Normal 05/06/21 05:00 Dimorphic RBCs Not Reportable 05/06/21 05:00 Polychromasia Not Reportable 05/06/21 05:00 Hypochromasia Not Reportable 05/06/21 05:00 Poikilocytosis Not Reportable 05/06/21 05:00 Anisocytosis Not Reportable 05/06/21 05:00 Microcytosis Not Reportable 05/06/21 05:00 Macrocytosis Not Reportable 05/06/21 05:00 Spherocytes Not Reportable 05/06/21 05:00 Pappenheimer Bodies Not Reportable 05/06/21 05:00 Sickle Cells Not Reportable 05/06/21 05:00 Target Cells Not Reportable 05/06/21 05:00 Tear Drop Cells Not Reportable 05/06/21 05:00 Ovalocytes Not Reportable 05/06/21 05:00 Helmet Cells Not Reportable 05/06/21 05:00 Ahuja-Albert Bodies Not Reportable 05/06/21 05:00 [place] Rings Not Reportable 05/06/21 05:00 Warrens Cells Not Reportable 05/06/21 05:00 Bite Cells Not Reportable 05/06/21 05:00 Crenated Cell Not Reportable 05/06/21 05:00 Elliptocytes Not Reportable 05/06/21 05:00 Acanthocytes (Spur) Not Reportable 05/06/21 05:00 Rouleaux Not Reportable 05/06/21 05:00 Hemoglobin C Crystals Not Reportable 05/06/21 05:00 Schistocytes Not Reportable 05/06/21 05:00 Malaria parasites Not Reportable 05/06/21 05:00 Justin Bodies Not Reportable 05/06/21 05:00 Hem Pathologist Commnt No 05/06/21 05:00 D-Dimer 190.77 ng/mlDDU (0-234) 05/12/21 04:05 ABG pH 7.229 (7.320-7.450) L 05/03/21 04:49 POC ABG pCO2 45.4 mmHg (32.0-48.0) 05/03/21 04:49 ABG pCO2 42.2 mm Hg 04/29/21 14:23 POC ABG pO2 65.3 mmHg (83-108) L 05/03/21 04:49 ABG pO2 52.6 mm Hg (80.0-90.0) L 04/29/21 14:23 POC ABG HCO3 18.5 05/03/21 04:49 ABG HCO3 26.0 mmol/L (20.0-26.0) 04/29/21 14:23 ABG O2 Saturation 88.4 (0-100) 05/03/21 04:49 ABG O2 Content 18.1 (0.0-44) 04/29/21 14:23 POC ABG Base Excess -8.9 05/03/21 04:49 ABG Base Excess 1.1 mmol/L (-2.0-3.0) 04/29/21 14:23 ABG Hemoglobin 15.8 (12.0-17.5) 05/03/21 04:49 ABG Oxyhemoglobin 87.8 (94-98) L 05/03/21 04:49 ABG Carboxyhemoglobin 1.5 % (0.0-5.0) 04/29/21 14:23 ABG Methemoglobin 0.1 (0.0-1.5) 05/03/21 04:49 ABG Sodium 133.0 mmol/L (136.0-145.0) L 05/03/21 04:49 ABG Potassium 3.9 mmol/L (3.40-4.50) 05/03/21 04:49 ABG Chloride 97.0 mmol/L (98-107) L 05/03/21 04:49 ABG Glucose 403 mg/dL (65-95) H 05/03/21 04:49 Oxyhemoglobin 84.6 % (95.0-99.0) L 04/29/21 14:23 Carboxyhemoglobin 0.6 (0.5-1.5) 05/03/21 04:49 FiO2 100 % 04/29/21 14:23 FiO2 % 100.0 05/03/21 04:49 Sodium 136 mmol/L (137-145) L 05/12/21 04:05 Potassium 4.2 mmol/L (3.6-5.0) 05/12/21 04:05 Chloride 99.5 mmol/L (98-107) 05/12/21 04:05 Carbon Dioxide 29 mmol/L (22-30) 05/12/21 04:05 Anion Gap 12 mmol/L 05/12/21 04:05 BUN 18 mg/dL (7-17) H 05/12/21 04:05 Creatinine 0.2 mg/dL (0.6-1.2) L 05/12/21 04:05 Estimated GFR > 60 ml/min 05/12/21 04:05 BUN/Creatinine Ratio 90 % 05/12/21 04:05 Glucose 142 mg/dL (65-100) H 05/12/21 04:05 POC Glucose 152 mg/dL (70-105) H 05/12/21 05:11 Hemoglobin A1c 8.5 % (4-6) H 04/18/21 07:36 Calcium 9.1 mg/dL (8.4-10.2) 05/12/21 04:05 Phosphorus 3.60 mg/dL (2.5-4.5) 05/06/21 05:00 Magnesium 2.00 mg/dL (1.7-2.3) 05/06/21 05:00 Ferritin 350.7 ng/mL (10.0-200.0) H 05/12/21 04:05 Total Bilirubin 0.30 mg/dL (0.1-1.2) 05/12/21 04:05 AST 28 units/L (5-40) 05/12/21 04:05 ALT 54 units/L (7-56) 05/12/21 04:05 Alkaline Phosphatase 78 units/L (35-129) 05/12/21 04:05 Lactate Dehydrogenase 546 units/L (91-180) H 05/12/21 04:05 C-Reactive Protein 0.40 mg/dL (0.00-1.30) 05/12/21 04:05 Total Protein 6.1 g/dL (6.3-8.2) L 05/12/21 04:05 Albumin 3.0 g/dL (3.9-5) L 05/12/21 04:05 Albumin/Globulin Ratio 1.0 % 05/12/21 04:05 Triglycerides < 9 mg/dL (2-149) 05/03/21 04:30 Procalcitonin < 0.05 ng/mL (<0.15) 04/17/21 08:26 Arterial Blood Glucose 403 mg/dL (65-95) H 05/03/21 04:49 Arterial Blood Ionized Calcium 4.9 mg/dL (4.6-5.3) 05/03/21 04:49 Coronavirus (PCR) Positive (Negative) A 04/17/21 Unknown Amos/IV: Voiding Method External Female Catheter Active Medications - Current Medications Current Medications: Generic Name Dose Route Start Last Admin Trade Name Freq PRN Reason Stop Dose Admin Acetaminophen 650 mg 04/16/21 14:00 05/11/21 23:06 Acetaminophen 325 Mg Tab PO 650 mg Q4H PRN Administration Pain MILD(1-3)/Fever >100.5/[place] Albuterol 2.5 mg 04/16/21 13:39 04/21/21 20:39 Albuterol 2.5 Mg/3 Ml Nebu IH 2.5 mg Q4HRT PRN Administration Shortness Of Breath Artificial Tears 2 drops 04/28/21 18:15 05/11/21 22:17 Hypromellose 0.5% Ophth Soln 15 Ml OU 2 drops Q4H PRN Administration Dry Eye(s) Ascorbic Acid 500 mg 04/24/21 10:00 05/11/21 09:40 Ascorbic Acid 500 Mg Tab PO 500 mg QDAY TUTU Administration Cholecalciferol 1,000 unit 04/17/21 10:00 05/11/21 09:40 Cholecalciferol (Vit D3) 1000 Unit (25 Mcg) Tab PO 1,000 unit QDAY TUTU Administration Dextrose 50 ml 04/18/21 07:30 04/28/21 09:59 Dextrose 50% In Water (25gm) 50 Ml Syringe IV 50 ml Q30MIN PRN Administration Hypoglycemia Protocol Docusate Sodium 100 mg 04/30/21 10:00 05/11/21 22:18 Docusate Sodium 100 Mg Cap PO 100 mg BID TUTU Administration Enoxaparin Sodium 70 mg 05/08/21 06:00 05/12/21 05:22 Enoxaparin 80 Mg/0.8 Ml Inj SUB-Q 70 mg Q12H TUTU Administration Famotidine 20 mg 05/07/21 22:00 05/11/21 22:18 Famotidine 20 Mg Tab PO 20 mg BID TUTU Administration Potassium Chloride 20 meq in 100 mls @ 100 mls/hr 04/30/21 09:25 Kcl 20meq/100ml IV Q1H PRN Potassium 3-3.5 mEq/L Potassium Chloride 20 meq in 100 mls @ 100 mls/hr 04/30/21 09:25 Kcl 20meq/100ml IV Q1H PRN Potassium 2.6-2.9 mEq/L Magnesium Sulfate 1 gm/ Sodium 52 mls @ 26 mls/hr 04/30/21 09:25 Chloride IV Q2H PRN Magnesium level 1.8-2 mg/dL Magnesium Sulfate 2 gm in 50 mls @ 25 mls/hr 04/30/21 09:25 Magnesium Sulfate 2gm/50ml IV Q2H PRN Magnesium level 1.5-1.7 mg/dL Magnesium Sulfate 4 gm in 100 mls @ 25 mls/hr 04/30/21 09:25 Magnesium Sulfate 4gm/100ml IV Q4H PRN Magnesium level < 1.4 mg/dL Sodium Phosphate 15 mmol/ 155 mls @ 40 mls/hr 04/30/21 09:25 Sodium Chloride IV Q4H PRN Phosphorous level 1.2-2.5 mg/d Sodium Phosphate 30 mmol/ 260 mls @ 40 mls/hr 04/30/21 09:25 Sodium Chloride IV Q6H PRN Phosphorous level < 1.2 mg/dL Insulin Glargine 25 units 05/04/21 11:05 05/11/21 11:43 Insulin Glargine 100 Units/Ml SUB-Q 25 units DAILY TUTU Administration Insulin Glargine 10 units 05/06/21 22:00 05/11/21 22:18 Insulin Glargine 100 Units/Ml SUB-Q 10 units QHS TUTU Administration Insulin Human Lispro 0 unit 05/01/21 12:00 05/12/21 05:20 Insulin Lispro 100 Unit/Ml SUB-Q 3 unit Q6HR TUTU Administration Protocol Insulin Human Regular 6 units 05/07/21 12:00 05/12/21 02:27 Insulin Regular, Human 100 Units/1 Ml SUB-Q Not Given Q6HR TUTU Lorazepam 1 mg 05/02/21 08:56 05/04/21 22:13 Lorazepam 2 Mg/Ml Vial IV 1 mg Q4H PRN Administration Anxiety Methylprednisolone Sodium Succinate 125 mg 05/09/21 16:13 05/12/21 05:17 Methylprednisolone Sod Succinate 125 Mg/2 Ml Inj IV 125 mg Q8HR TUTU Administration Multi-Ingred Cream/Lotion/Oil/Oint 1 applic 05/10/21 14:00 05/12/21 05:25 Mineral Oil/Petrolatum, White Ophth Oint 3.5 Gm OU 1 applic Q8HR TUTU Administration Nystatin 500,000 unit 05/07/21 18:00 05/11/21 22:18 Nystatin 500,000 Unit/5 Ml Oral Liqd PO 500,000 unit QID TUTU Administration Ondansetron HCl 4 mg 04/16/21 14:00 05/03/21 13:19 Ondansetron 4 Mg/2 Ml Inj IV 4 mg Q8H PRN Administration Nausea And Vomiting Polyethylene Glycol 17 gm 05/02/21 16:00 05/11/21 09:41 Polyethylene Glycol 3350 17 Gm Powder PO 17 gm QDAY TUTU Administration Senna 17.2 mg 05/02/21 22:00 05/11/21 22:18 Sennosides 8.6 Mg Tab PO 17.2 mg QHS TUTU Administration Sodium Chloride 10 ml 04/16/21 22:00 05/11/21 22:19 Sodium Chloride 0.9% 10 Ml Flush Syringe IV 10 ml BID TUTU Administration Sodium Chloride 10 ml 04/16/21 13:39 Sodium Chloride 0.9% 10 Ml Flush Syringe IV PRN PRN LINE FLUSH Zinc Sulfate 220 mg 04/16/21 22:00 05/11/21 22:18 Zinc Sulfate 220 Mg Cap PO 220 mg BID TUTU Administration Nutrition/Malnutrition Assess - Dietary Evaluation Nutrition/Malnutrition Findings: Nutrition Notes Start: 04/23/21 07:41 Freq: Status: Active Protocol: Document 05/10/21 13:31 FABIAN (Rec: 05/10/21 13:33 FABIAN [id number]) Nutrition Notes Initial or Follow up Reassessment Current Diagnosis Respiratory Failure Other Pertinent Diagnosis oral thrush, COVID-19 pneu Current Diet GI soft Labs/Tests POC BG 285-94 Pertinent Medications Reviewed Height 4 ft 11.84 in Weight 68.1 kg [place] Body Weight (kg) 45.09 BMI 29.5 Weight Status Overweight Subjective/Other Information Pt eating 100% of meals, per RN. Percent of energy/protein needs met: 100%/100% Burn Absent Trauma Absent Current % PO Good (75-100%) Minimum of two criteria Yes Energy Intake (severe) < or equal to 50% Estimated Energy Requirement > or equal to 5 days Interpretation of Weight Loss (severe) >5% in 1 month #2 Nutrition Diagnosis Malnutrition Diagnosis Progress(for reassessment Continues documentation) #1 Nutrition Diagnosis Inadequate oral intake As Evidenced by Signs and Symptoms pt meeting 100%/100% of kcal/ protein needs Diagnosis Progress(for reassessment Improved documentation) Is patient on ventilator? No Is Patient Ambulatory and/or Out of Bed No REE-([facility]-confined to bed) 1473.888 Kcal/Kg value to use for calculation 25 Approximate Energy Requirements Using 1703 kcal/Kg Calculation Used for Recommendations [facility] Additional Notes Pro needs 1.2-2g/k-137g/ day Fluid needs 1ml/kcal Nutrition Intervention Add Supplement/Snack (indicate name/kcal Glucerna BID /protein ) Provides kCal: 440 Provides Protein (gm) 20 Goal #1 Continue to meet at least 75% of protein and energy needs Anticipated Discharge Needs: Consistent CHO Follow-Up By: 05/17/21 Additional Comments F/u: stable intakes
[2021-05-12 09:15] LABS: Band Neutrophils # (Manual) 0.1 K/mm3; Platelet Estimate Consistent w Auto; RBC Morphology Normal; Total Cells Counted 100
[2021-05-12] MEDS: DOCUSATE SODIUM 100 MG CAP PO SCH ×2 (09:19→23:59)
[2021-05-12] MEDS: FAMOTIDINE 20 MG TAB PO SCH (09:19)
[2021-05-12] MEDS: CHOLECALCIFEROL (VIT D3) 1000 UNIT (25 mcg) TAB PO SCH (09:19)
[2021-05-12] MEDS: ZINC SULFATE 220 MG CAP PO SCH ×2 (09:19→23:59)
[2021-05-12] MEDS: ASCORBIC ACID 500 MG TAB PO SCH (09:19)
[2021-05-12] MEDS: NYSTATIN 500,000 UNIT/5 ML ORAL LIQD PO SCH ×3 (09:20→17:49)
[2021-05-12] MEDS: POLYETHYLENE GLYCOL 3350 17 GM POWDER PO SCH (09:20)
--- NOTE | 2021-05-12 09:47 | Progress Note ---
Assessment and Plan 50 y/o female with acute respiratory failure secondary to COVID19 pneumonia. 05/12/21: Patient may need something longer acting for anxiety. Per chart has not gotten any ativan in days. Would be ok with either buspar or low dose klonopin bid. COntinue higher doses of steroids as patient seems to be responding. Prone if possible. 05/11/21: Continue high doses of steroids and continue to wean for sats >88%. Please encourage proning. 05/10/21: Will continue this dose of steroid at least through the weekend and assess for improvement. will speak with RT about aggressive weaning. Full dose anticoagulation continues. Very very guarded to poor prognosis. 05/09/21: Going to consider increasing steroids to 125q8, maybe as early as tomorrow. continue full dose anticoagulation. 05/08/21: Continue anticoagulation and steroids. Prone if possible. Anxiety control. No objection to CTA if this can happen. Very very guarded prognosis. 05/07/21: Spoke with IMS, not opposed to full dose anticoagulation. If patient goes back on NRB HFNC combo may need to consider restarting PPN again. Encourage proning. Guarded prognosis. 05/06/21: Continue to wean FiO2 and flow for sats >88%. Tolerating diet now so will stop PPN. Continue anxiety control. Continue IV steroids. Would not object to transfer to COVID floor if bed available. Not sure why she was titrated back up to 100% from 85 as all sats documented in the RT's notes were acceptable. Same for under vital signs as well. 05/03/21: Set back last night from yesterday. Continue bipap therapy for now and attempt HFNC maybe later this afternoon. Continue to use PRN ativan but may need to schedule as she likely took off mask from anxiety. Continue IV steroids . Hold on transfer to COVID Floor. 05/02/21: Continue to wean FiO2 as tolerated for sats >88%. Will continue bipap at night. Patient has no funding so not a candidate for LTACH. Given that she has been stable and not requiring the combo of HFNC and NRB, will consider moving to COVID floor. 05/01/21: Continue to wean FiO2 for sats >88%. A sat of 90 is more than acceptable and oxygen should not be increased for this unless patient desats and remains at a sat lower than 88. Bipap at night to give some form of relief and HFNC during the day. Currently on just this alone which is improvement. Ok with daily diuresis but must monitor renal function and BP closely. She was over diuresed last week and we ended up giving fluid back. Prognosis remains guarded. 04/30/21: Will start CLinimix today for nutritional support, without electrolytes. Check labs in am. Prone if able. Continue precedx for anxiety. Very very guarded prognosis. Attempting our best to not intubate. 04/29/21: Continue precedex. Continue IV solumedrol. Prone if able. Guarded prognosis. 04/28/21: Continue Precedex. Picc team attempting to place line now. Stable on Bipap. Ordered steroids IV solumedrol to start today. Prognosis remains guarded, still at very high risk for intubation. 04/27/21: Hypotension improving/improved. Hold on any further lasix dosing. Continue precedex to help with anxeity. later today please attempt HFNC with NRB if needed. Attempt to feed if possible. Steroids end today, please order solumedrol 40q8 to start tomorrow (04/28/21). guarded prognosis. 04/26/21: Hypotension today, most likely from precedex use and diuresis that I did the last several days. Will bolus again today. Consider midodrine if BP does not respond. 04/25/21: Lasix again today. Keep PRN ativan for now. Hold on precedex for now. Guarded prognosis. Labs ordered for tomorrow. 04/24/21: Lasix today. Will also start patient on low dose PRN ativan. If this does not help will then try precedex. Guarded prognosis. 04/23/21: Prone as tolerated. No lasix today. Continue decadron. Guarded prognosis. High risk for intubation and high mortality with intubation. 04/19/21: Prone as tolerated during the day and sleep prone at night. Continue IV remdesivir and steroids. Did get actemra. Guarded prognosis. 1. Daily net negative state 2. Prone if possible 3. IV remdesivir. 4. Should be a candidate for Actemra 5. IV steroids 6. Guarded Prognosis Subjective Date of service: 05/12/21 Principal diagnosis: Covid-19 Interval history: Patient was satting fine on HFNC at 35 and 80 and requested NRB be placed back on so RT did it. Otherwise no issues. Objective Vital Signs - 12hr 05/11/21 05/11/21 05/12/21 21:56 22:00 02:00 Temperature 97.8 F Pulse Rate 90 Pulse Rate [ 90 Left Radial] Respiratory 22 22 Rate Blood Pressure 108/59 O2 Sat by Pulse 92 92 92 Oximetry 05/12/21 06:20 Temperature 98.0 F Pulse Rate 70 Pulse Rate [ Left Radial] Respiratory 22 Rate Blood Pressure 126/78 O2 Sat by Pulse 98 Oximetry Constitutional: no acute distress, alert Eyes: non-icteric ENT: oropharynx moist Neck: supple Effort: normal Ascultation: Bilateral: diminished breath sounds Cardiovascular: regular rate and rhythm Gastrointestinal: normoactive bowel sounds, soft, non-tender, non-distended Integumentary: normal Extremities: no cyanosis, no edema, pink and warm Neurologic: normal mental status, non-focal exam, pupils equal and round, CN II- XII normal Psychiatric: mood appropriate, affect normal CBC and BMP: 05/12/21 04:05 05/12/21 04:05 ABG, PT/INR, D-dimer: ABG ABG pH 7.229 (7.320-7.450) L 05/03/21 04:49 POC ABG pCO2 45.4 mmHg (32.0-48.0) 05/03/21 04:49 ABG pCO2 42.2 mm Hg 04/29/21 14:23 POC ABG pO2 65.3 mmHg (83-108) L 05/03/21 04:49 ABG pO2 52.6 mm Hg (80.0-90.0) L 04/29/21 14:23 POC ABG HCO3 18.5 05/03/21 04:49 ABG O2 Saturation 88.4 (0-100) 05/03/21 04:49 PT/INR, D-dimer D-Dimer 190.77 ng/mlDDU (0-234) 05/12/21 04:05 Abnormal lab findings: Abnormal Labs 04/16/21 04/16/21 04/16/21 11:42 11:42 11:42 WBC MCHC RDW 16.1 H Lymph % (Auto) 7.8 L Lymph # (Auto) 0.8 L Baso # (Auto) Seg Neutrophils % 87.7 H Seg Neuts % (Manual) Lymphocytes % (Manual) Seg Neutrophils # 8.5 H Seg Neutrophils # Man Lymphocytes # (Manual) D-Dimer 338.70 H ABG pH POC ABG pO2 ABG pO2 ABG O2 Saturation ABG Oxyhemoglobin ABG Sodium ABG Chloride ABG Glucose Oxyhemoglobin Carboxyhemoglobin Sodium Potassium Chloride Carbon Dioxide BUN Creatinine Glucose 194 H POC Glucose Hemoglobin A1c Ferritin AST ALT Alkaline Phosphatase Lactate Dehydrogenase C-Reactive Protein Total Protein 8.4 H Albumin 3.8 L Arterial Blood Glucose Coronavirus (PCR) 04/16/21 04/16/21 04/17/21 11:42 11:42 03:50 WBC MCHC RDW 16.0 H Lymph % (Auto) 7.7 L Lymph # (Auto) 0.6 L Baso # (Auto) Seg Neutrophils % 89.8 H Seg Neuts % (Manual) Lymphocytes % (Manual) Seg Neutrophils # Seg Neutrophils # Man Lymphocytes # (Manual) D-Dimer ABG pH POC ABG pO2 ABG pO2 ABG O2 Saturation ABG Oxyhemoglobin ABG Sodium ABG Chloride ABG Glucose Oxyhemoglobin Carboxyhemoglobin Sodium Potassium Chloride Carbon Dioxide BUN Creatinine Glucose 195 H POC Glucose Hemoglobin A1c Ferritin 254.3 H AST ALT Alkaline Phosphatase Lactate Dehydrogenase 359 H C-Reactive Protein 15.20 H Total Protein Albumin Arterial Blood Glucose Coronavirus (PCR) 04/17/21 04/17/21 04/17/21 03:50 08:26 08:26 WBC MCHC RDW Lymph % (Auto) Lymph # (Auto) Baso # (Auto) Seg Neutrophils % Seg Neuts % (Manual) Lymphocytes % (Manual) Seg Neutrophils # Seg Neutrophils # Man Lymphocytes # (Manual) D-Dimer 262.48 H ABG pH POC ABG pO2 ABG pO2 ABG O2 Saturation ABG Oxyhemoglobin ABG Sodium ABG Chloride ABG Glucose Oxyhemoglobin Carboxyhemoglobin Sodium Potassium Chloride Carbon Dioxide BUN 20 H Creatinine 0.5 L Glucose 249 H 225 H POC Glucose Hemoglobin A1c Ferritin AST ALT Alkaline Phosphatase Lactate Dehydrogenase 338 H C-Reactive Protein 17.20 H Total Protein Albumin 3.2 L Arterial Blood Glucose Coronavirus (PCR) 04/17/21 04/17/21 04/17/21 08:26 15:04 Unknown WBC MCHC RDW Lymph % (Auto) Lymph # (Auto) Baso # (Auto) Seg Neutrophils % Seg Neuts % (Manual) Lymphocytes % (Manual) Seg Neutrophils # Seg Neutrophils # Man Lymphocytes # (Manual) D-Dimer ABG pH POC ABG pO2 ABG pO2 ABG O2 Saturation ABG Oxyhemoglobin ABG Sodium ABG Chloride ABG Glucose Oxyhemoglobin Carboxyhemoglobin Sodium Potassium Chloride Carbon Dioxide BUN 20 H Creatinine 0.5 L Glucose 246 H POC Glucose Hemoglobin A1c Ferritin 392.0 H AST ALT Alkaline Phosphatase Lactate Dehydrogenase C-Reactive Protein Total Protein 8.3 H Albumin 3.1 L Arterial Blood Glucose Coronavirus (PCR) Positive A 04/18/21 04/18/21 04/18/21 05:06 05:06 07:36 WBC 11.6 H MCHC RDW 16.1 H Lymph % (Auto) Lymph # (Auto) Baso # (Auto) Seg Neutrophils % Seg Neuts % (Manual) Lymphocytes % (Manual) Seg Neutrophils # Seg Neutrophils # Man Lymphocytes # (Manual) D-Dimer ABG pH POC ABG pO2 ABG pO2 ABG O2 Saturation ABG Oxyhemoglobin ABG Sodium ABG Chloride ABG Glucose Oxyhemoglobin Carboxyhemoglobin Sodium Potassium 5.2 H Chloride Carbon Dioxide BUN 22 H Creatinine 0.5 L Glucose 315 H POC Glucose Hemoglobin A1c 8.5 H Ferritin AST ALT Alkaline Phosphatase Lactate Dehydrogenase C-Reactive Protein Total Protein Albumin 3.3 L Arterial Blood Glucose Coronavirus (PCR) 04/18/21 04/18/21 04/18/21 11:59 16:43 23:24 WBC MCHC RDW Lymph % (Auto) Lymph # (Auto) Baso # (Auto) Seg Neutrophils % Seg Neuts % (Manual) Lymphocytes % (Manual) Seg Neutrophils # Seg Neutrophils # Man Lymphocytes # (Manual) D-Dimer ABG pH POC ABG pO2 ABG pO2 ABG O2 Saturation ABG Oxyhemoglobin ABG Sodium ABG Chloride ABG Glucose Oxyhemoglobin Carboxyhemoglobin Sodium Potassium Chloride Carbon Dioxide BUN Creatinine Glucose POC Glucose 284 H 273 H 290 H Hemoglobin A1c Ferritin AST ALT Alkaline Phosphatase Lactate Dehydrogenase C-Reactive Protein Total Protein Albumin Arterial Blood Glucose Coronavirus (PCR) 04/19/21 04/19/21 04/19/21 04:19 04:19 08:10 WBC MCHC RDW 15.7 H Lymph % (Auto) Lymph # (Auto) Baso # (Auto) Seg Neutrophils % Seg Neuts % (Manual) Lymphocytes % (Manual) Seg Neutrophils # Seg Neutrophils # Man Lymphocytes # (Manual) D-Dimer ABG pH POC ABG pO2 ABG pO2 ABG O2 Saturation ABG Oxyhemoglobin ABG Sodium ABG Chloride ABG Glucose Oxyhemoglobin Carboxyhemoglobin Sodium Potassium Chloride Carbon Dioxide BUN 27 H Creatinine 0.4 L Glucose 184 H POC Glucose 194 H Hemoglobin A1c Ferritin AST ALT Alkaline Phosphatase Lactate Dehydrogenase C-Reactive Protein Total Protein Albumin 3.1 L Arterial Blood Glucose Coronavirus (PCR) 04/19/21 04/19/21 04/19/21 11:38 16:25 22:04 WBC MCHC RDW Lymph % (Auto) Lymph # (Auto) Baso # (Auto) Seg Neutrophils % Seg Neuts % (Manual) Lymphocytes % (Manual) Seg Neutrophils # Seg Neutrophils # Man Lymphocytes # (Manual) D-Dimer ABG pH POC ABG pO2 ABG pO2 ABG O2 Saturation ABG Oxyhemoglobin ABG Sodium ABG Chloride ABG Glucose Oxyhemoglobin Carboxyhemoglobin Sodium Potassium Chloride Carbon Dioxide BUN Creatinine Glucose POC Glucose 224 H 297 H 251 H Hemoglobin A1c Ferritin AST ALT Alkaline Phosphatase Lactate Dehydrogenase C-Reactive Protein Total Protein Albumin Arterial Blood Glucose Coronavirus (PCR) 04/20/21 04/20/21 04/20/21 05:28 08:43 16:21 WBC MCHC RDW Lymph % (Auto) Lymph # (Auto) Baso # (Auto) Seg Neutrophils % Seg Neuts % (Manual) Lymphocytes % (Manual) Seg Neutrophils # Seg Neutrophils # Man Lymphocytes # (Manual) D-Dimer ABG pH POC ABG pO2 ABG pO2 ABG O2 Saturation ABG Oxyhemoglobin ABG Sodium ABG Chloride ABG Glucose Oxyhemoglobin Carboxyhemoglobin Sodium Potassium Chloride Carbon Dioxide BUN 27 H Creatinine Glucose 192 H POC Glucose 173 H 253 H Hemoglobin A1c Ferritin AST ALT Alkaline Phosphatase Lactate Dehydrogenase C-Reactive Protein Total Protein Albumin 3.0 L Arterial Blood Glucose Coronavirus (PCR) 04/21/21 04/21/21 04/21/21 07:58 12:05 16:08 WBC MCHC RDW Lymph % (Auto) Lymph # (Auto) Baso # (Auto) Seg Neutrophils % Seg Neuts % (Manual) Lymphocytes % (Manual) Seg Neutrophils # Seg Neutrophils # Man Lymphocytes # (Manual) D-Dimer ABG pH POC ABG pO2 ABG pO2 ABG O2 Saturation ABG Oxyhemoglobin ABG Sodium ABG Chloride ABG Glucose Oxyhemoglobin Carboxyhemoglobin Sodium Potassium Chloride Carbon Dioxide BUN Creatinine Glucose POC Glucose 140 H 252 H 214 H Hemoglobin A1c Ferritin AST ALT Alkaline Phosphatase Lactate Dehydrogenase C-Reactive Protein Total Protein Albumin Arterial Blood Glucose Coronavirus (PCR) 04/21/21 04/22/21 04/22/21 21:42 08:37 12:01 WBC MCHC RDW Lymph % (Auto) Lymph # (Auto) Baso # (Auto) Seg Neutrophils % Seg Neuts % (Manual) Lymphocytes % (Manual) Seg Neutrophils # Seg Neutrophils # Man Lymphocytes # (Manual) D-Dimer ABG pH 7.457 H POC ABG pO2 49.4 L ABG pO2 ABG O2 Saturation ABG Oxyhemoglobin 85.6 L ABG Sodium ABG Chloride ABG Glucose 121 H Oxyhemoglobin Carboxyhemoglobin 0.3 L Sodium Potassium Chloride Carbon Dioxide BUN Creatinine Glucose POC Glucose 162 H 227 H Hemoglobin A1c Ferritin AST ALT Alkaline Phosphatase Lactate Dehydrogenase C-Reactive Protein Total Protein Albumin Arterial Blood Glucose 121 H Coronavirus (PCR) 04/22/21 04/22/21 04/23/21 16:26 22:23 04:52 WBC MCHC RDW 15.7 H Lymph % (Auto) Lymph # (Auto) Baso # (Auto) Seg Neutrophils % Seg Neuts % (Manual) Lymphocytes % (Manual) Seg Neutrophils # Seg Neutrophils # Man Lymphocytes # (Manual) D-Dimer ABG pH POC ABG pO2 ABG pO2 ABG O2 Saturation ABG Oxyhemoglobin ABG Sodium ABG Chloride ABG Glucose Oxyhemoglobin Carboxyhemoglobin Sodium Potassium Chloride Carbon Dioxide BUN Creatinine Glucose POC Glucose 200 H 136 H Hemoglobin A1c Ferritin AST ALT Alkaline Phosphatase Lactate Dehydrogenase C-Reactive Protein Total Protein Albumin Arterial Blood Glucose Coronavirus (PCR) 04/23/21 04/23/21 04/23/21 04:52 12:06 17:41 WBC MCHC RDW Lymph % (Auto) Lymph # (Auto) Baso # (Auto) Seg Neutrophils % Seg Neuts % (Manual) Lymphocytes % (Manual) Seg Neutrophils # Seg Neutrophils # Man Lymphocytes # (Manual) D-Dimer ABG pH POC ABG pO2 ABG pO2 ABG O2 Saturation ABG Oxyhemoglobin ABG Sodium ABG Chloride ABG Glucose Oxyhemoglobin Carboxyhemoglobin Sodium 136 L Potassium Chloride 97.7 L Carbon Dioxide BUN 23 H Creatinine Glucose 101 H POC Glucose 202 H 169 H Hemoglobin A1c Ferritin AST 46 H ALT Alkaline Phosphatase Lactate Dehydrogenase C-Reactive Protein Total Protein Albumin 3.3 L Arterial Blood Glucose Coronavirus (PCR) 04/23/21 04/24/21 04/24/21 23:08 05:17 08:38 WBC MCHC RDW Lymph % (Auto) Lymph # (Auto) Baso # (Auto) Seg Neutrophils % Seg Neuts % (Manual) Lymphocytes % (Manual) Seg Neutrophils # Seg Neutrophils # Man Lymphocytes # (Manual) D-Dimer ABG pH POC ABG pO2 ABG pO2 ABG O2 Saturation ABG Oxyhemoglobin ABG Sodium ABG Chloride ABG Glucose Oxyhemoglobin Carboxyhemoglobin Sodium Potassium Chloride Carbon Dioxide BUN Creatinine Glucose POC Glucose 111 H 108 H 126 H Hemoglobin A1c Ferritin AST ALT Alkaline Phosphatase Lactate Dehydrogenase C-Reactive Protein Total Protein Albumin Arterial Blood Glucose Coronavirus (PCR) 04/24/21 04/24/21 04/24/21 11:54 17:57 21:23 WBC MCHC RDW Lymph % (Auto) Lymph # (Auto) Baso # (Auto) Seg Neutrophils % Seg Neuts % (Manual) Lymphocytes % (Manual) Seg Neutrophils # Seg Neutrophils # Man Lymphocytes # (Manual) D-Dimer ABG pH POC ABG pO2 ABG pO2 ABG O2 Saturation ABG Oxyhemoglobin ABG Sodium ABG Chloride ABG Glucose Oxyhemoglobin Carboxyhemoglobin Sodium Potassium Chloride Carbon Dioxide BUN Creatinine Glucose POC Glucose 147 H 177 H 138 H Hemoglobin A1c Ferritin AST ALT Alkaline Phosphatase Lactate Dehydrogenase C-Reactive Protein Total Protein Albumin Arterial Blood Glucose Coronavirus (PCR) 04/25/21 04/25/21 04/25/21 07:06 11:23 15:43 WBC MCHC RDW Lymph % (Auto) Lymph # (Auto) Baso # (Auto) Seg Neutrophils % Seg Neuts % (Manual) Lymphocytes % (Manual) Seg Neutrophils # Seg Neutrophils # Man Lymphocytes # (Manual) D-Dimer ABG pH POC ABG pO2 ABG pO2 ABG O2 Saturation ABG Oxyhemoglobin ABG Sodium ABG Chloride ABG Glucose Oxyhemoglobin Carboxyhemoglobin Sodium Potassium Chloride Carbon Dioxide BUN Creatinine Glucose POC Glucose 147 H 169 H 227 H Hemoglobin A1c Ferritin AST ALT Alkaline Phosphatase Lactate Dehydrogenase C-Reactive Protein Total Protein Albumin Arterial Blood Glucose Coronavirus (PCR) 04/25/21 04/26/21 04/26/21 21:22 02:45 05:15 WBC MCHC RDW Lymph % (Auto) Lymph # (Auto) Baso # (Auto) Seg Neutrophils % Seg Neuts % (Manual) Lymphocytes % (Manual) Seg Neutrophils # Seg Neutrophils # Man Lymphocytes # (Manual) D-Dimer ABG pH POC ABG pO2 70.7 L ABG pO2 ABG O2 Saturation ABG Oxyhemoglobin 93.0 L ABG Sodium 132.7 L ABG Chloride ABG Glucose 115 H Oxyhemoglobin Carboxyhemoglobin Sodium Potassium Chloride 95.8 L Carbon Dioxide 32 H BUN 20 H Creatinine Glucose 102 H POC Glucose 196 H Hemoglobin A1c Ferritin AST ALT Alkaline Phosphatase Lactate Dehydrogenase C-Reactive Protein Total Protein Albumin Arterial Blood Glucose 115 H Coronavirus (PCR) 04/26/21 04/26/21 04/26/21 11:49 16:09 21:07 WBC MCHC RDW Lymph % (Auto) Lymph # (Auto) Baso # (Auto) Seg Neutrophils % Seg Neuts % (Manual) Lymphocytes % (Manual) Seg Neutrophils # Seg Neutrophils # Man Lymphocytes # (Manual) D-Dimer ABG pH POC ABG pO2 ABG pO2 ABG O2 Saturation ABG Oxyhemoglobin ABG Sodium ABG Chloride ABG Glucose Oxyhemoglobin Carboxyhemoglobin Sodium Potassium Chloride Carbon Dioxide BUN Creatinine Glucose POC Glucose 114 H 188 H 136 H Hemoglobin A1c Ferritin AST ALT Alkaline Phosphatase Lactate Dehydrogenase C-Reactive Protein Total Protein Albumin Arterial Blood Glucose Coronavirus (PCR) 04/27/21 04/27/21 04/28/21 17:34 22:12 08:26 WBC MCHC RDW Lymph % (Auto) Lymph # (Auto) Baso # (Auto) Seg Neutrophils % Seg Neuts % (Manual) Lymphocytes % (Manual) Seg Neutrophils # Seg Neutrophils # Man Lymphocytes # (Manual) D-Dimer ABG pH POC ABG pO2 ABG pO2 ABG O2 Saturation ABG Oxyhemoglobin ABG Sodium ABG Chloride ABG Glucose Oxyhemoglobin Carboxyhemoglobin Sodium Potassium Chloride Carbon Dioxide BUN Creatinine Glucose POC Glucose 128 H 159 H 69 L Hemoglobin A1c Ferritin AST ALT Alkaline Phosphatase Lactate Dehydrogenase C-Reactive Protein Total Protein Albumin Arterial Blood Glucose Coronavirus (PCR) 04/28/21 04/28/21 04/29/21 12:22 21:11 06:05 WBC MCHC RDW Lymph % (Auto) Lymph # (Auto) Baso # (Auto) Seg Neutrophils % Seg Neuts % (Manual) Lymphocytes % (Manual) Seg Neutrophils # Seg Neutrophils # Man Lymphocytes # (Manual) D-Dimer ABG pH POC ABG pO2 ABG pO2 ABG O2 Saturation ABG Oxyhemoglobin ABG Sodium ABG Chloride ABG Glucose Oxyhemoglobin Carboxyhemoglobin Sodium 132 L Potassium Chloride 94.4 L Carbon Dioxide BUN Creatinine 0.2 L D Glucose 140 H POC Glucose 141 H 171 H Hemoglobin A1c Ferritin AST ALT Alkaline Phosphatase Lactate Dehydrogenase C-Reactive Protein Total Protein Albumin Arterial Blood Glucose Coronavirus (PCR) 04/29/21 04/29/21 04/29/21 06:05 07:24 11:36 WBC MCHC 35 H RDW 15.9 H Lymph % (Auto) Lymph # (Auto) Baso # (Auto) Seg Neutrophils % Seg Neuts % (Manual) Lymphocytes % (Manual) Seg Neutrophils # Seg Neutrophils # Man Lymphocytes # (Manual) D-Dimer ABG pH POC ABG pO2 ABG pO2 ABG O2 Saturation ABG Oxyhemoglobin ABG Sodium ABG Chloride ABG Glucose Oxyhemoglobin Carboxyhemoglobin Sodium Potassium Chloride Carbon Dioxide BUN Creatinine Glucose POC Glucose 141 H 220 H Hemoglobin A1c Ferritin AST ALT Alkaline Phosphatase Lactate Dehydrogenase C-Reactive Protein Total Protein Albumin Arterial Blood Glucose Coronavirus (PCR) 04/29/21 04/29/21 04/29/21 14:23 15:30 17:06 WBC MCHC RDW Lymph % (Auto) Lymph # (Auto) Baso # (Auto) Seg Neutrophils % Seg Neuts % (Manual) Lymphocytes % (Manual) Seg Neutrophils # Seg Neutrophils # Man Lymphocytes # (Manual) D-Dimer ABG pH POC ABG pO2 ABG pO2 52.6 L ABG O2 Saturation 86.4 L ABG Oxyhemoglobin ABG Sodium ABG Chloride ABG Glucose Oxyhemoglobin 84.6 L Carboxyhemoglobin Sodium Potassium Chloride Carbon Dioxide BUN Creatinine Glucose POC Glucose 173 H 158 H Hemoglobin A1c Ferritin AST ALT Alkaline Phosphatase Lactate Dehydrogenase C-Reactive Protein Total Protein Albumin Arterial Blood Glucose Coronavirus (PCR) 04/29/21 04/30/21 04/30/21 21:27 07:16 08:00 WBC MCHC RDW 16.1 H Lymph % (Auto) Lymph # (Auto) Baso # (Auto) Seg Neutrophils % Seg Neuts % (Manual) Lymphocytes % (Manual) Seg Neutrophils # Seg Neutrophils # Man Lymphocytes # (Manual) D-Dimer ABG pH POC ABG pO2 ABG pO2 ABG O2 Saturation ABG Oxyhemoglobin ABG Sodium ABG Chloride ABG Glucose Oxyhemoglobin Carboxyhemoglobin Sodium Potassium Chloride Carbon Dioxide BUN Creatinine Glucose POC Glucose 244 H 175 H Hemoglobin A1c Ferritin AST ALT Alkaline Phosphatase Lactate Dehydrogenase C-Reactive Protein Total Protein Albumin Arterial Blood Glucose Coronavirus (PCR) 04/30/21 04/30/21 04/30/21 08:00 08:00 11:03 WBC MCHC RDW Lymph % (Auto) Lymph # (Auto) Baso # (Auto) Seg Neutrophils % Seg Neuts % (Manual) Lymphocytes % (Manual) Seg Neutrophils # Seg Neutrophils # Man Lymphocytes # (Manual) D-Dimer 1796.87 H ABG pH POC ABG pO2 ABG pO2 ABG O2 Saturation ABG Oxyhemoglobin ABG Sodium ABG Chloride ABG Glucose Oxyhemoglobin Carboxyhemoglobin Sodium 135 L Potassium Chloride 96.3 L Carbon Dioxide BUN Creatinine 0.2 L Glucose 153 H POC Glucose 183 H Hemoglobin A1c Ferritin AST 41 H ALT 76 H Alkaline Phosphatase 160 H Lactate Dehydrogenase 522 H C-Reactive Protein Total Protein 6.1 L Albumin 3.1 L Arterial Blood Glucose Coronavirus (PCR) 04/30/21 04/30/21 05/01/21 17:04 22:17 05:39 WBC MCHC RDW Lymph % (Auto) Lymph # (Auto) Baso # (Auto) Seg Neutrophils % Seg Neuts % (Manual) Lymphocytes % (Manual) Seg Neutrophils # Seg Neutrophils # Man Lymphocytes # (Manual) D-Dimer ABG pH POC ABG pO2 ABG pO2 ABG O2 Saturation ABG Oxyhemoglobin ABG Sodium ABG Chloride ABG Glucose Oxyhemoglobin Carboxyhemoglobin Sodium 133 L Potassium Chloride 92.1 L Carbon Dioxide BUN 24 H Creatinine 0.4 L D Glucose 269 H POC Glucose 167 H 208 H Hemoglobin A1c Ferritin AST ALT 66 H Alkaline Phosphatase 142 H Lactate Dehydrogenase C-Reactive Protein Total Protein Albumin 3.2 L Arterial Blood Glucose Coronavirus (PCR) 05/01/21 05/01/21 05/01/21 05:39 05:39 07:45 WBC MCHC RDW 16.0 H Lymph % (Auto) Lymph # (Auto) Baso # (Auto) Seg Neutrophils % Seg Neuts % (Manual) Lymphocytes % (Manual) Seg Neutrophils # Seg Neutrophils # Man Lymphocytes # (Manual) D-Dimer 3984.95 H ABG pH POC ABG pO2 ABG pO2 ABG O2 Saturation ABG Oxyhemoglobin ABG Sodium ABG Chloride ABG Glucose Oxyhemoglobin Carboxyhemoglobin Sodium Potassium Chloride Carbon Dioxide BUN Creatinine Glucose POC Glucose 229 H Hemoglobin A1c Ferritin AST ALT Alkaline Phosphatase Lactate Dehydrogenase C-Reactive Protein Total Protein Albumin Arterial Blood Glucose Coronavirus (PCR) 05/01/21 05/01/21 05/01/21 12:10 15:46 21:06 WBC MCHC RDW Lymph % (Auto) Lymph # (Auto) Baso # (Auto) Seg Neutrophils % Seg Neuts % (Manual) Lymphocytes % (Manual) Seg Neutrophils # Seg Neutrophils # Man Lymphocytes # (Manual) D-Dimer ABG pH POC ABG pO2 ABG pO2 ABG O2 Saturation ABG Oxyhemoglobin ABG Sodium ABG Chloride ABG Glucose Oxyhemoglobin Carboxyhemoglobin Sodium Potassium Chloride Carbon Dioxide BUN Creatinine Glucose POC Glucose 296 H 279 H 232 H Hemoglobin A1c Ferritin AST ALT Alkaline Phosphatase Lactate Dehydrogenase C-Reactive Protein Total Protein Albumin Arterial Blood Glucose Coronavirus (PCR) 05/02/21 05/02/21 05/02/21 04:55 04:55 04:55 WBC MCHC RDW 16.1 H Lymph % (Auto) Lymph # (Auto) Baso # (Auto) Seg Neutrophils % Seg Neuts % (Manual) Lymphocytes % (Manual) Seg Neutrophils # Seg Neutrophils # Man Lymphocytes # (Manual) D-Dimer 1401.08 H ABG pH POC ABG pO2 ABG pO2 ABG O2 Saturation ABG Oxyhemoglobin ABG Sodium ABG Chloride ABG Glucose Oxyhemoglobin Carboxyhemoglobin Sodium 131 L Potassium Chloride 95.5 L Carbon Dioxide BUN 20 H Creatinine 0.3 L Glucose 288 H POC Glucose Hemoglobin A1c Ferritin AST ALT Alkaline Phosphatase Lactate Dehydrogenase C-Reactive Protein Total Protein 6.0 L Albumin 3.1 L Arterial Blood Glucose Coronavirus (PCR) 05/02/21 05/02/21 05/02/21 07:53 11:45 15:25 WBC MCHC RDW Lymph % (Auto) Lymph # (Auto) Baso # (Auto) Seg Neutrophils % Seg Neuts % (Manual) Lymphocytes % (Manual) Seg Neutrophils # Seg Neutrophils # Man Lymphocytes # (Manual) D-Dimer ABG pH POC ABG pO2 ABG pO2 ABG O2 Saturation ABG Oxyhemoglobin ABG Sodium ABG Chloride ABG Glucose Oxyhemoglobin Carboxyhemoglobin Sodium Potassium Chloride Carbon Dioxide BUN Creatinine Glucose POC Glucose 180 H 228 H 275 H Hemoglobin A1c Ferritin AST ALT Alkaline Phosphatase Lactate Dehydrogenase C-Reactive Protein Total Protein Albumin Arterial Blood Glucose Coronavirus (PCR) 05/02/21 05/03/21 05/03/21 22:56 04:30 04:49 WBC MCHC RDW Lymph % (Auto) Lymph # (Auto) Baso # (Auto) Seg Neutrophils % Seg Neuts % (Manual) Lymphocytes % (Manual) Seg Neutrophils # Seg Neutrophils # Man Lymphocytes # (Manual) D-Dimer ABG pH 7.229 L POC ABG pO2 65.3 L ABG pO2 ABG O2 Saturation ABG Oxyhemoglobin 87.8 L ABG Sodium 133.0 L ABG Chloride 97.0 L ABG Glucose 403 H Oxyhemoglobin Carboxyhemoglobin Sodium 130 L Potassium Chloride 94.9 L Carbon Dioxide BUN 20 H Creatinine 0.5 L D Glucose 359 H POC Glucose 293 H Hemoglobin A1c Ferritin AST 54 H ALT 75 H Alkaline Phosphatase 138 H Lactate Dehydrogenase C-Reactive Protein Total Protein Albumin 3.6 L Arterial Blood Glucose 403 H Coronavirus (PCR) 05/03/21 05/03/21 05/03/21 05:27 11:26 17:57 WBC MCHC RDW Lymph % (Auto) Lymph # (Auto) Baso # (Auto) Seg Neutrophils % Seg Neuts % (Manual) Lymphocytes % (Manual) Seg Neutrophils # Seg Neutrophils # Man Lymphocytes # (Manual) D-Dimer ABG pH POC ABG pO2 ABG pO2 ABG O2 Saturation ABG Oxyhemoglobin ABG Sodium ABG Chloride ABG Glucose Oxyhemoglobin Carboxyhemoglobin Sodium Potassium Chloride Carbon Dioxide BUN Creatinine Glucose POC Glucose 361 H 297 H 226 H Hemoglobin A1c Ferritin AST ALT Alkaline Phosphatase Lactate Dehydrogenase C-Reactive Protein Total Protein Albumin Arterial Blood Glucose Coronavirus (PCR) 05/03/21 05/04/21 05/04/21 23:12 05:12 07:30 WBC MCHC RDW Lymph % (Auto) Lymph # (Auto) Baso # (Auto) Seg Neutrophils % Seg Neuts % (Manual) Lymphocytes % (Manual) Seg Neutrophils # Seg Neutrophils # Man Lymphocytes # (Manual) D-Dimer ABG pH POC ABG pO2 ABG pO2 ABG O2 Saturation ABG Oxyhemoglobin ABG Sodium ABG Chloride ABG Glucose Oxyhemoglobin Carboxyhemoglobin Sodium Potassium Chloride Carbon Dioxide BUN Creatinine Glucose POC Glucose 282 H 285 H 254 H Hemoglobin A1c Ferritin AST ALT Alkaline Phosphatase Lactate Dehydrogenase C-Reactive Protein Total Protein Albumin Arterial Blood Glucose Coronavirus (PCR) 05/04/21 05/04/21 05/04/21 08:58 11:45 16:07 WBC MCHC RDW Lymph % (Auto) Lymph # (Auto) Baso # (Auto) Seg Neutrophils % Seg Neuts % (Manual) Lymphocytes % (Manual) Seg Neutrophils # Seg Neutrophils # Man Lymphocytes # (Manual) D-Dimer ABG pH POC ABG pO2 ABG pO2 ABG O2 Saturation ABG Oxyhemoglobin ABG Sodium ABG Chloride ABG Glucose Oxyhemoglobin Carboxyhemoglobin Sodium 134 L Potassium Chloride Carbon Dioxide BUN 20 H Creatinine 0.3 L Glucose 267 H POC Glucose 244 H 297 H Hemoglobin A1c Ferritin AST ALT Alkaline Phosphatase Lactate Dehydrogenase C-Reactive Protein Total Protein 6.0 L Albumin 3.2 L Arterial Blood Glucose Coronavirus (PCR) 05/04/21 05/05/21 05/05/21 23:32 05:00 05:13 WBC MCHC RDW Lymph % (Auto) Lymph # (Auto) Baso # (Auto) Seg Neutrophils % Seg Neuts % (Manual) Lymphocytes % (Manual) Seg Neutrophils # Seg Neutrophils # Man Lymphocytes # (Manual) D-Dimer ABG pH POC ABG pO2 ABG pO2 ABG O2 Saturation ABG Oxyhemoglobin ABG Sodium ABG Chloride ABG Glucose Oxyhemoglobin Carboxyhemoglobin Sodium 132 L Potassium Chloride 96.4 L Carbon Dioxide BUN 22 H Creatinine 0.3 L Glucose 228 H POC Glucose 154 H 260 H Hemoglobin A1c Ferritin AST ALT 67 H Alkaline Phosphatase Lactate Dehydrogenase C-Reactive Protein Total Protein 6.1 L Albumin 3.2 L Arterial Blood Glucose Coronavirus (PCR) 05/05/21 05/05/21 05/05/21 11:32 17:49 23:07 WBC MCHC RDW Lymph % (Auto) Lymph # (Auto) Baso # (Auto) Seg Neutrophils % Seg Neuts % (Manual) Lymphocytes % (Manual) Seg Neutrophils # Seg Neutrophils # Man Lymphocytes # (Manual) D-Dimer ABG pH POC ABG pO2 ABG pO2 ABG O2 Saturation ABG Oxyhemoglobin ABG Sodium ABG Chloride ABG Glucose Oxyhemoglobin Carboxyhemoglobin Sodium Potassium Chloride Carbon Dioxide BUN Creatinine Glucose POC Glucose 279 H 308 H 213 H Hemoglobin A1c Ferritin AST ALT Alkaline Phosphatase Lactate Dehydrogenase C-Reactive Protein Total Protein Albumin Arterial Blood Glucose Coronavirus (PCR) 05/06/21 05/06/21 05/06/21 05:00 05:00 05:20 WBC MCHC RDW 16.8 H Lymph % (Auto) Lymph # (Auto) Baso # (Auto) Seg Neutrophils % Seg Neuts % (Manual) 99.0 H Lymphocytes % (Manual) Seg Neutrophils # Seg Neutrophils # Man 10.9 H Lymphocytes # (Manual) 0.0 L D-Dimer ABG pH POC ABG pO2 ABG pO2 ABG O2 Saturation ABG Oxyhemoglobin ABG Sodium ABG Chloride ABG Glucose Oxyhemoglobin Carboxyhemoglobin Sodium 133 L Potassium Chloride Carbon Dioxide BUN 21 H Creatinine 0.3 L Glucose 259 H POC Glucose 308 H Hemoglobin A1c Ferritin AST ALT Alkaline Phosphatase Lactate Dehydrogenase C-Reactive Protein Total Protein Albumin 3.2 L Arterial Blood Glucose Coronavirus (PCR) 05/06/21 05/06/21 05/06/21 11:24 17:54 21:32 WBC MCHC RDW Lymph % (Auto) Lymph # (Auto) Baso # (Auto) Seg Neutrophils % Seg Neuts % (Manual) Lymphocytes % (Manual) Seg Neutrophils # Seg Neutrophils # Man Lymphocytes # (Manual) D-Dimer ABG pH POC ABG pO2 ABG pO2 ABG O2 Saturation ABG Oxyhemoglobin ABG Sodium ABG Chloride ABG Glucose Oxyhemoglobin Carboxyhemoglobin Sodium Potassium Chloride Carbon Dioxide BUN Creatinine Glucose POC Glucose 262 H 124 H 246 H Hemoglobin A1c Ferritin AST ALT Alkaline Phosphatase Lactate Dehydrogenase C-Reactive Protein Total Protein Albumin Arterial Blood Glucose Coronavirus (PCR) 05/06/21 05/07/21 05/07/21 23:10 04:54 04:54 WBC MCHC RDW Lymph % (Auto) Lymph # (Auto) Baso # (Auto) Seg Neutrophils % Seg Neuts % (Manual) Lymphocytes % (Manual) Seg Neutrophils # Seg Neutrophils # Man Lymphocytes # (Manual) D-Dimer 1609.28 H ABG pH POC ABG pO2 ABG pO2 ABG O2 Saturation ABG Oxyhemoglobin ABG Sodium ABG Chloride ABG Glucose Oxyhemoglobin Carboxyhemoglobin Sodium 136 L Potassium Chloride Carbon Dioxide BUN 23 H Creatinine 0.3 L Glucose 110 H POC Glucose 249 H Hemoglobin A1c Ferritin AST ALT Alkaline Phosphatase Lactate Dehydrogenase C-Reactive Protein Total Protein 6.2 L Albumin 3.0 L Arterial Blood Glucose Coronavirus (PCR) 05/07/21 05/07/21 05/07/21 04:54 04:54 11:41 WBC MCHC RDW Lymph % (Auto) Lymph # (Auto) Baso # (Auto) Seg Neutrophils % Seg Neuts % (Manual) Lymphocytes % (Manual) Seg Neutrophils # Seg Neutrophils # Man Lymphocytes # (Manual) D-Dimer ABG pH POC ABG pO2 ABG pO2 ABG O2 Saturation ABG Oxyhemoglobin ABG Sodium ABG Chloride ABG Glucose Oxyhemoglobin Carboxyhemoglobin Sodium Potassium Chloride Carbon Dioxide BUN Creatinine Glucose POC Glucose 118 H Hemoglobin A1c Ferritin 296.1 H AST ALT Alkaline Phosphatase Lactate Dehydrogenase 724 H C-Reactive Protein Total Protein Albumin Arterial Blood Glucose Coronavirus (PCR) 05/07/21 05/07/21 05/08/21 16:43 22:34 06:44 WBC MCHC RDW Lymph % (Auto) Lymph # (Auto) Baso # (Auto) Seg Neutrophils % Seg Neuts % (Manual) Lymphocytes % (Manual) Seg Neutrophils # Seg Neutrophils # Man Lymphocytes # (Manual) D-Dimer ABG pH POC ABG pO2 ABG pO2 ABG O2 Saturation ABG Oxyhemoglobin ABG Sodium ABG Chloride ABG Glucose Oxyhemoglobin Carboxyhemoglobin Sodium Potassium Chloride Carbon Dioxide BUN Creatinine Glucose POC Glucose 159 H 233 H 235 H Hemoglobin A1c Ferritin AST ALT Alkaline Phosphatase Lactate Dehydrogenase C-Reactive Protein Total Protein Albumin Arterial Blood Glucose Coronavirus (PCR) 05/08/21 05/08/21 05/08/21 07:49 11:56 17:13 WBC MCHC RDW Lymph % (Auto) Lymph # (Auto) Baso # (Auto) Seg Neutrophils % Seg Neuts % (Manual) Lymphocytes % (Manual) Seg Neutrophils # Seg Neutrophils # Man Lymphocytes # (Manual) D-Dimer ABG pH POC ABG pO2 ABG pO2 ABG O2 Saturation ABG Oxyhemoglobin ABG Sodium ABG Chloride ABG Glucose Oxyhemoglobin Carboxyhemoglobin Sodium Potassium Chloride Carbon Dioxide BUN Creatinine Glucose POC Glucose 219 H 184 H 182 H Hemoglobin A1c Ferritin AST ALT Alkaline Phosphatase Lactate Dehydrogenase C-Reactive Protein Total Protein Albumin Arterial Blood Glucose Coronavirus (PCR) 05/08/21 05/09/2121 23:35 05:20 05:20 WBC MCHC RDW Lymph % (Auto) Lymph # (Auto) Baso # (Auto) Seg Neutrophils % Seg Neuts % (Manual) Lymphocytes % (Manual) Seg Neutrophils # Seg Neutrophils # Man Lymphocytes # (Manual) D-Dimer 1003.87 H ABG pH POC ABG pO2 ABG pO2 ABG O2 Saturation ABG Oxyhemoglobin ABG Sodium ABG Chloride ABG Glucose Oxyhemoglobin Carboxyhemoglobin Sodium Potassium Chloride Carbon Dioxide BUN Creatinine Glucose POC Glucose 198 H Hemoglobin A1c Ferritin 378.7 H AST ALT Alkaline Phosphatase Lactate Dehydrogenase C-Reactive Protein Total Protein Albumin Arterial Blood Glucose Coronavirus (PCR) 05/09/21 05/09/21 05/09/21 05:20 06:04 12:53 WBC MCHC RDW Lymph % (Auto) Lymph # (Auto) Baso # (Auto) Seg Neutrophils % Seg Neuts % (Manual) Lymphocytes % (Manual) Seg Neutrophils # Seg Neutrophils # Man Lymphocytes # (Manual) D-Dimer ABG pH POC ABG pO2 ABG pO2 ABG O2 Saturation ABG Oxyhemoglobin ABG Sodium ABG Chloride ABG Glucose Oxyhemoglobin Carboxyhemoglobin Sodium Potassium Chloride Carbon Dioxide BUN Creatinine Glucose POC Glucose 159 H 180 H Hemoglobin A1c Ferritin AST ALT Alkaline Phosphatase Lactate Dehydrogenase 558 H C-Reactive Protein 2.40 H Total Protein Albumin Arterial Blood Glucose Coronavirus (PCR) 05/09/21 05/09/21 05/10/21 16:43 21:27 10:18 WBC MCHC RDW Lymph % (Auto) Lymph # (Auto) Baso # (Auto) Seg Neutrophils % Seg Neuts % (Manual) Lymphocytes % (Manual) Seg Neutrophils # Seg Neutrophils # Man Lymphocytes # (Manual) D-Dimer ABG pH POC ABG pO2 ABG pO2 ABG O2 Saturation ABG Oxyhemoglobin ABG Sodium ABG Chloride ABG Glucose Oxyhemoglobin Carboxyhemoglobin Sodium Potassium Chloride Carbon Dioxide BUN Creatinine Glucose POC Glucose 212 H 285 H 261 H Hemoglobin A1c Ferritin AST ALT Alkaline Phosphatase Lactate Dehydrogenase C-Reactive Protein Total Protein Albumin Arterial Blood Glucose Coronavirus (PCR) 05/10/21 05/10/21 05/11/21 17:58 18:02 00:29 WBC MCHC RDW Lymph % (Auto) Lymph # (Auto) Baso # (Auto) Seg Neutrophils % Seg Neuts % (Manual) Lymphocytes % (Manual) Seg Neutrophils # Seg Neutrophils # Man Lymphocytes # (Manual) D-Dimer ABG pH POC ABG pO2 ABG pO2 ABG O2 Saturation ABG Oxyhemoglobin ABG Sodium ABG Chloride ABG Glucose Oxyhemoglobin Carboxyhemoglobin Sodium Potassium Chloride Carbon Dioxide BUN Creatinine Glucose POC Glucose 213 H 179 H 149 H Hemoglobin A1c Ferritin AST ALT Alkaline Phosphatase Lactate Dehydrogenase C-Reactive Protein Total Protein Albumin Arterial Blood Glucose Coronavirus (PCR) 05/11/21 05/11/21 05/11/21 05:22 11:32 17:00 WBC 14.9 H MCHC RDW 18.9 H Lymph % (Auto) 4.9 L Lymph # (Auto) 0.7 L Baso # (Auto) 0.2 H Seg Neutrophils % Seg Neuts % (Manual) Lymphocytes % (Manual) Seg Neutrophils # 13.3 H Seg Neutrophils # Man Lymphocytes # (Manual) D-Dimer ABG pH POC ABG pO2 ABG pO2 ABG O2 Saturation ABG Oxyhemoglobin ABG Sodium ABG Chloride ABG Glucose Oxyhemoglobin Carboxyhemoglobin Sodium Potassium Chloride Carbon Dioxide BUN Creatinine Glucose POC Glucose 162 H 179 H Hemoglobin A1c Ferritin AST ALT Alkaline Phosphatase Lactate Dehydrogenase C-Reactive Protein Total Protein Albumin Arterial Blood Glucose Coronavirus (PCR) 05/11/21 05/11/21 05/11/21 17:00 17:33 22:03 WBC MCHC RDW Lymph % (Auto) Lymph # (Auto) Baso # (Auto) Seg Neutrophils % Seg Neuts % (Manual) Lymphocytes % (Manual) Seg Neutrophils # Seg Neutrophils # Man Lymphocytes # (Manual) D-Dimer ABG pH POC ABG pO2 ABG pO2 ABG O2 Saturation ABG Oxyhemoglobin ABG Sodium ABG Chloride ABG Glucose Oxyhemoglobin Carboxyhemoglobin Sodium 135 L Potassium Chloride 97.3 L Carbon Dioxide BUN 21 H Creatinine 0.3 L Glucose 133 H POC Glucose 140 H 282 H Hemoglobin A1c Ferritin AST ALT 60 H Alkaline Phosphatase Lactate Dehydrogenase C-Reactive Protein Total Protein Albumin 3.1 L Arterial Blood Glucose Coronavirus (PCR) 05/12/21 05/12/21 05/12/21 04:05 04:05 04:05 WBC MCHC RDW 18.4 H Lymph % (Auto) Lymph # (Auto) Baso # (Auto) Seg Neutrophils % Seg Neuts % (Manual) 94.0 H Lymphocytes % (Manual) 4.0 L Seg Neutrophils # Seg Neutrophils # Man Lymphocytes # (Manual) 0.3 L D-Dimer ABG pH POC ABG pO2 ABG pO2 ABG O2 Saturation ABG Oxyhemoglobin ABG Sodium ABG Chloride ABG Glucose Oxyhemoglobin Carboxyhemoglobin Sodium 136 L Potassium Chloride Carbon Dioxide BUN 18 H Creatinine 0.2 L Glucose 142 H POC Glucose Hemoglobin A1c Ferritin 350.7 H AST ALT Alkaline Phosphatase Lactate Dehydrogenase 546 H C-Reactive Protein Total Protein 6.1 L Albumin 3.0 L Arterial Blood Glucose Coronavirus (PCR) 05/12/21 05:11 WBC MCHC RDW Lymph % (Auto) Lymph # (Auto) Baso # (Auto) Seg Neutrophils % Seg Neuts % (Manual) Lymphocytes % (Manual) Seg Neutrophils # Seg Neutrophils # Man Lymphocytes # (Manual) D-Dimer ABG pH POC ABG pO2 ABG pO2 ABG O2 Saturation ABG Oxyhemoglobin ABG Sodium ABG Chloride ABG Glucose Oxyhemoglobin Carboxyhemoglobin Sodium Potassium Chloride Carbon Dioxide BUN Creatinine Glucose POC Glucose 152 H Hemoglobin A1c Ferritin AST ALT Alkaline Phosphatase Lactate Dehydrogenase C-Reactive Protein Total Protein Albumin Arterial Blood Glucose Coronavirus (PCR)
[2021-05-12] MEDS: INSULIN GLARGINE 100 UNITS/ML SUB-Q SCH (10:21)
--- NOTE | 2021-05-12 10:24 | XRay Report ---
CHEST 1 VIEW 05/12/2021 9:16 AM INDICATION / CLINICAL INFORMATION: covid 19 pneumonia. COMPARISON: 05/09/21 FINDINGS: SUPPORT DEVICES: Right PICC is unchanged. HEART / MEDIASTINUM: Stable. LUNGS / PLEURA: Bilateral pulmonary opacities are unchanged. No pneumothorax. ADDITIONAL FINDINGS: No significant additional findings. IMPRESSION: 1. No significant change. Signer Name: Jimmie Ramos MD Signed: 05/12/2021 10:20 AM Workstation Name: [id number]
[2021-05-12] MEDS: SENNOSIDES 8.6 MG TAB PO SCH (23:59)
[2021-05-13] MEDS: INSULIN LISPRO 100 UNIT/ML SUB-Q SCH ×4 (00:06→18:00)
[2021-05-13] MEDS: INSULIN REGULAR, HUMAN 100 UNITS/1 ML SUB-Q SCH ×5 (00:07→18:06)
[2021-05-13] MEDS: INSULIN GLARGINE 100 UNITS/ML SUB-Q SCH ×3 (00:09→22:48)
[2021-05-13] MEDS: methylPREDNISolone Sod Succinate 125 MG/2 ML INJ IV SCH ×4 (00:11→22:44)
[2021-05-13] MEDS: HYPROMELLOSE 0.5% OPHTH SOLN 15 ML OU PRN ×3 (00:21→07:09)
[2021-05-13] MEDS: MINERAL OIL/PETROLATUM, WHITE OPHTH OINT 3.5 GM OU SCH ×4 (00:25→22:43)
[2021-05-13] MEDS: ENOXAPARIN 80 MG/0.8 ML INJ SUB-Q SCH ×2 (07:08→19:06)
[2021-05-13] MEDS: POLYETHYLENE GLYCOL 3350 17 GM POWDER PO SCH (10:56)
[2021-05-13] MEDS: ASCORBIC ACID 500 MG TAB PO SCH (10:56)
[2021-05-13] MEDS: NYSTATIN 500,000 UNIT/5 ML ORAL LIQD PO SCH ×5 (10:56→22:44)
[2021-05-13] MEDS: CHOLECALCIFEROL (VIT D3) 1000 UNIT (25 mcg) TAB PO SCH (10:56)
[2021-05-13] MEDS: DOCUSATE SODIUM 100 MG CAP PO SCH ×2 (10:56→22:45)
[2021-05-13] MEDS: FAMOTIDINE 20 MG TAB PO SCH ×3 (10:56→22:43)
[2021-05-13] MEDS: ZINC SULFATE 220 MG CAP PO SCH ×2 (10:57→22:45)
[2021-05-13] MEDS: DEXTROSE 5% IN WATER 1,000 ML IV SCH (11:31)
--- NOTE | 2021-05-13 14:39 | Progress Note ---
Assessment and Plan 50 y/o female with acute respiratory failure secondary to COVID19 pneumonia. 05/13/21: Ordered buspar 10 BID to start with to help with anxiety. Please continue to wean FiO2 as tolerated. Will remind nurse that there is PRN ativan available. Continue higher doses of steroids. Prone if able. 05/12/21: Patient may need something longer acting for anxiety. Per chart has not gotten any ativan in days. Would be ok with either buspar or low dose klonopin bid. COntinue higher doses of steroids as patient seems to be responding. Prone if possible. 05/11/21: Continue high doses of steroids and continue to wean for sats >88%. Please encourage proning. 05/10/21: Will continue this dose of steroid at least through the weekend and assess for improvement. will speak with RT about aggressive weaning. Full dose anticoagulation continues. Very very guarded to poor prognosis. 05/09/21: Going to consider increasing steroids to 125q8, maybe as early as tomorrow. continue full dose anticoagulation. 05/08/21: Continue anticoagulation and steroids. Prone if possible. Anxiety control. No objection to CTA if this can happen. Very very guarded prognosis. 05/07/21: Spoke with IMS, not opposed to full dose anticoagulation. If patient goes back on NRB HFNC combo may need to consider restarting PPN again. Encourage proning. Guarded prognosis. 05/06/21: Continue to wean FiO2 and flow for sats >88%. Tolerating diet now so will stop PPN. Continue anxiety control. Continue IV steroids. Would not object to transfer to COVID floor if bed available. Not sure why she was titrated back up to 100% from 85 as all sats documented in the RT's notes were acceptable. Same for under vital signs as well. 05/03/21: Set back last night from yesterday. Continue bipap therapy for now and attempt HFNC maybe later this afternoon. Continue to use PRN ativan but may need to schedule as she likely took off mask from anxiety. Continue IV steroids. Hold on transfer to COVID Floor. 05/02/21: Continue to wean FiO2 as tolerated for sats >88%. Will continue bipap at night. Patient has no funding so not a candidate for LTACH. Given that she has been stable and not requiring the combo of HFNC and NRB, will consider moving to COVID floor. 05/01/21: Continue to wean FiO2 for sats >88%. A sat of 90 is more than acceptable and oxygen should not be increased for this unless patient desats and remains at a sat lower than 88. Bipap at night to give some form of relief and HFNC during the day. Currently on just this alone which is improvement. Ok with daily diuresis but must monitor renal function and BP closely. She was over diuresed last week and we ended up giving fluid back. Prognosis remains guarded. 04/30/21: Will start CLinimix today for nutritional support, without electrolytes. Check labs in am. Prone if able. Continue precedx for anxiety. Very very guarded prognosis. Attempting our best to not intubate. 04/29/21: Continue precedex. Continue IV solumedrol. Prone if able. Guarded prognosis. 04/28/21: Continue Precedex. Picc team attempting to place line now. Stable on Bipap. Ordered steroids IV solumedrol to start today. Prognosis remains guarded, still at very high risk for intubation. 04/27/21: Hypotension improving/improved. Hold on any further lasix dosing. Continue precedex to help with anxeity. later today please attempt HFNC with NRB if needed. Attempt to feed if possible. Steroids end today, please order solumedrol 40q8 to start tomorrow (04/28/21). guarded prognosis. 04/26/21: Hypotension today, most likely from precedex use and diuresis that I did the last several days. Will bolus again today. Consider midodrine if BP does not respond. 04/25/21: Lasix again today. Keep PRN ativan for now. Hold on precedex for now. Guarded prognosis. Labs ordered for tomorrow. 04/24/21: Lasix today. Will also start patient on low dose PRN ativan. If this does not help will then try precedex. Guarded prognosis. 04/23/21: Prone as tolerated. No lasix today. Continue decadron. Guarded prognosis. High risk for intubation and high mortality with intubation. 04/19/21: Prone as tolerated during the day and sleep prone at night. Continue IV remdesivir and steroids. Did get actemra. Guarded prognosis. 1. Daily net negative state 2. Prone if possible 3. IV remdesivir. 4. Should be a candidate for Actemra 5. IV steroids 6. Guarded Prognosis Subjective Date of service: 05/13/21 Principal diagnosis: Covid-19 Interval history: No acute events. Patient requested again for the NRB despite having good sats. This happened in the middle of the night again. Objective Vital Signs - 12hr 05/13/21 05:18 Temperature 98.3 F Pulse Rate 76 Respiratory 16 Rate Blood Pressure 114/64 O2 Sat by Pulse 99 Oximetry Constitutional: no acute distress, alert Eyes: non-icteric ENT: oropharynx moist Neck: supple Effort: normal Ascultation: Bilateral: diminished breath sounds Cardiovascular: regular rate and rhythm Gastrointestinal: normoactive bowel sounds, soft, non-tender, non-distended Integumentary: normal Extremities: no cyanosis, no edema, pink and warm Neurologic: normal mental status, non-focal exam, pupils equal and round, CN II- XII normal Psychiatric: mood appropriate, affect normal CBC and BMP: 05/12/21 04:05 05/12/21 04:05 ABG, PT/INR, D-dimer: ABG ABG pH 7.229 (7.320-7.450) L 05/03/21 04:49 POC ABG pCO2 45.4 mmHg (32.0-48.0) 05/03/21 04:49 ABG pCO2 42.2 mm Hg 04/29/21 14:23 POC ABG pO2 65.3 mmHg (83-108) L 05/03/21 04:49 ABG pO2 52.6 mm Hg (80.0-90.0) L 04/29/21 14:23 POC ABG HCO3 18.5 05/03/21 04:49 ABG O2 Saturation 88.4 (0-100) 05/03/21 04:49 PT/INR, D-dimer D-Dimer 190.77 ng/mlDDU (0-234) 05/12/21 04:05 Abnormal lab findings: Abnormal Labs 04/16/21 04/16/21 04/16/21 11:42 11:42 11:42 WBC MCHC RDW 16.1 H Lymph % (Auto) 7.8 L Lymph # (Auto) 0.8 L Baso # (Auto) Seg Neutrophils % 87.7 H Seg Neuts % (Manual) Lymphocytes % (Manual) Seg Neutrophils # 8.5 H Seg Neutrophils # Man Lymphocytes # (Manual) D-Dimer 338.70 H ABG pH POC ABG pO2 ABG pO2 ABG O2 Saturation ABG Oxyhemoglobin ABG Sodium ABG Chloride ABG Glucose Oxyhemoglobin Carboxyhemoglobin Sodium Potassium Chloride Carbon Dioxide BUN Creatinine Glucose 194 H POC Glucose Hemoglobin A1c Ferritin AST ALT Alkaline Phosphatase Lactate Dehydrogenase C-Reactive Protein Total Protein 8.4 H Albumin 3.8 L Arterial Blood Glucose Coronavirus (PCR) 04/16/21 04/16/21 04/17/21 11:42 11:42 03:50 WBC MCHC RDW 16.0 H Lymph % (Auto) 7.7 L Lymph # (Auto) 0.6 L Baso # (Auto) Seg Neutrophils % 89.8 H Seg Neuts % (Manual) Lymphocytes % (Manual) Seg Neutrophils # Seg Neutrophils # Man Lymphocytes # (Manual) D-Dimer ABG pH POC ABG pO2 ABG pO2 ABG O2 Saturation ABG Oxyhemoglobin ABG Sodium ABG Chloride ABG Glucose Oxyhemoglobin Carboxyhemoglobin Sodium Potassium Chloride Carbon Dioxide BUN Creatinine Glucose 195 H POC Glucose Hemoglobin A1c Ferritin 254.3 H AST ALT Alkaline Phosphatase Lactate Dehydrogenase 359 H C-Reactive Protein 15.20 H Total Protein Albumin Arterial Blood Glucose Coronavirus (PCR) 04/17/21 04/17/21 04/17/21 03:50 08:26 08:26 WBC MCHC RDW Lymph % (Auto) Lymph # (Auto) Baso # (Auto) Seg Neutrophils % Seg Neuts % (Manual) Lymphocytes % (Manual) Seg Neutrophils # Seg Neutrophils # Man Lymphocytes # (Manual) D-Dimer 262.48 H ABG pH POC ABG pO2 ABG pO2 ABG O2 Saturation ABG Oxyhemoglobin ABG Sodium ABG Chloride ABG Glucose Oxyhemoglobin Carboxyhemoglobin Sodium Potassium Chloride Carbon Dioxide BUN 20 H Creatinine 0.5 L Glucose 249 H 225 H POC Glucose Hemoglobin A1c Ferritin AST ALT Alkaline Phosphatase Lactate Dehydrogenase 338 H C-Reactive Protein 17.20 H Total Protein Albumin 3.2 L Arterial Blood Glucose Coronavirus (PCR) 04/17/21 04/17/21 04/17/21 08:26 15:04 Unknown WBC MCHC RDW Lymph % (Auto) Lymph # (Auto) Baso # (Auto) Seg Neutrophils % Seg Neuts % (Manual) Lymphocytes % (Manual) Seg Neutrophils # Seg Neutrophils # Man Lymphocytes # (Manual) D-Dimer ABG pH POC ABG pO2 ABG pO2 ABG O2 Saturation ABG Oxyhemoglobin ABG Sodium ABG Chloride ABG Glucose Oxyhemoglobin Carboxyhemoglobin Sodium Potassium Chloride Carbon Dioxide BUN 20 H Creatinine 0.5 L Glucose 246 H POC Glucose Hemoglobin A1c Ferritin 392.0 H AST ALT Alkaline Phosphatase Lactate Dehydrogenase C-Reactive Protein Total Protein 8.3 H Albumin 3.1 L Arterial Blood Glucose Coronavirus (PCR) Positive A 04/18/21 04/18/21 04/18/21 05:06 05:06 07:36 WBC 11.6 H MCHC RDW 16.1 H Lymph % (Auto) Lymph # (Auto) Baso # (Auto) Seg Neutrophils % Seg Neuts % (Manual) Lymphocytes % (Manual) Seg Neutrophils # Seg Neutrophils # Man Lymphocytes # (Manual) D-Dimer ABG pH POC ABG pO2 ABG pO2 ABG O2 Saturation ABG Oxyhemoglobin ABG Sodium ABG Chloride ABG Glucose Oxyhemoglobin Carboxyhemoglobin Sodium Potassium 5.2 H Chloride Carbon Dioxide BUN 22 H Creatinine 0.5 L Glucose 315 H POC Glucose Hemoglobin A1c 8.5 H Ferritin AST ALT Alkaline Phosphatase Lactate Dehydrogenase C-Reactive Protein Total Protein Albumin 3.3 L Arterial Blood Glucose Coronavirus (PCR) 04/18/21 04/18/21 04/18/21 11:59 16:43 23:24 WBC MCHC RDW Lymph % (Auto) Lymph # (Auto) Baso # (Auto) Seg Neutrophils % Seg Neuts % (Manual) Lymphocytes % (Manual) Seg Neutrophils # Seg Neutrophils # Man Lymphocytes # (Manual) D-Dimer ABG pH POC ABG pO2 ABG pO2 ABG O2 Saturation ABG Oxyhemoglobin ABG Sodium ABG Chloride ABG Glucose Oxyhemoglobin Carboxyhemoglobin Sodium Potassium Chloride Carbon Dioxide BUN Creatinine Glucose POC Glucose 284 H 273 H 290 H Hemoglobin A1c Ferritin AST ALT Alkaline Phosphatase Lactate Dehydrogenase C-Reactive Protein Total Protein Albumin Arterial Blood Glucose Coronavirus (PCR) 04/19/21 04/19/21 04/19/21 04:19 04:19 08:10 WBC MCHC RDW 15.7 H Lymph % (Auto) Lymph # (Auto) Baso # (Auto) Seg Neutrophils % Seg Neuts % (Manual) Lymphocytes % (Manual) Seg Neutrophils # Seg Neutrophils # Man Lymphocytes # (Manual) D-Dimer ABG pH POC ABG pO2 ABG pO2 ABG O2 Saturation ABG Oxyhemoglobin ABG Sodium ABG Chloride ABG Glucose Oxyhemoglobin Carboxyhemoglobin Sodium Potassium Chloride Carbon Dioxide BUN 27 H Creatinine 0.4 L Glucose 184 H POC Glucose 194 H Hemoglobin A1c Ferritin AST ALT Alkaline Phosphatase Lactate Dehydrogenase C-Reactive Protein Total Protein Albumin 3.1 L Arterial Blood Glucose Coronavirus (PCR) 04/19/21 04/19/21 04/19/21 11:38 16:25 22:04 WBC MCHC RDW Lymph % (Auto) Lymph # (Auto) Baso # (Auto) Seg Neutrophils % Seg Neuts % (Manual) Lymphocytes % (Manual) Seg Neutrophils # Seg Neutrophils # Man Lymphocytes # (Manual) D-Dimer ABG pH POC ABG pO2 ABG pO2 ABG O2 Saturation ABG Oxyhemoglobin ABG Sodium ABG Chloride ABG Glucose Oxyhemoglobin Carboxyhemoglobin Sodium Potassium Chloride Carbon Dioxide BUN Creatinine Glucose POC Glucose 224 H 297 H 251 H Hemoglobin A1c Ferritin AST ALT Alkaline Phosphatase Lactate Dehydrogenase C-Reactive Protein Total Protein Albumin Arterial Blood Glucose Coronavirus (PCR) 04/20/21 04/20/21 04/20/21 05:28 08:43 16:21 WBC MCHC RDW Lymph % (Auto) Lymph # (Auto) Baso # (Auto) Seg Neutrophils % Seg Neuts % (Manual) Lymphocytes % (Manual) Seg Neutrophils # Seg Neutrophils # Man Lymphocytes # (Manual) D-Dimer ABG pH POC ABG pO2 ABG pO2 ABG O2 Saturation ABG Oxyhemoglobin ABG Sodium ABG Chloride ABG Glucose Oxyhemoglobin Carboxyhemoglobin Sodium Potassium Chloride Carbon Dioxide BUN 27 H Creatinine Glucose 192 H POC Glucose 173 H 253 H Hemoglobin A1c Ferritin AST ALT Alkaline Phosphatase Lactate Dehydrogenase C-Reactive Protein Total Protein Albumin 3.0 L Arterial Blood Glucose Coronavirus (PCR) 04/21/21 04/21/21 04/21/21 07:58 12:05 16:08 WBC MCHC RDW Lymph % (Auto) Lymph # (Auto) Baso # (Auto) Seg Neutrophils % Seg Neuts % (Manual) Lymphocytes % (Manual) Seg Neutrophils # Seg Neutrophils # Man Lymphocytes # (Manual) D-Dimer ABG pH POC ABG pO2 ABG pO2 ABG O2 Saturation ABG Oxyhemoglobin ABG Sodium ABG Chloride ABG Glucose Oxyhemoglobin Carboxyhemoglobin Sodium Potassium Chloride Carbon Dioxide BUN Creatinine Glucose POC Glucose 140 H 252 H 214 H Hemoglobin A1c Ferritin AST ALT Alkaline Phosphatase Lactate Dehydrogenase C-Reactive Protein Total Protein Albumin Arterial Blood Glucose Coronavirus (PCR) 04/21/21 04/22/21 04/22/21 21:42 08:37 12:01 WBC MCHC RDW Lymph % (Auto) Lymph # (Auto) Baso # (Auto) Seg Neutrophils % Seg Neuts % (Manual) Lymphocytes % (Manual) Seg Neutrophils # Seg Neutrophils # Man Lymphocytes # (Manual) D-Dimer ABG pH 7.457 H POC ABG pO2 49.4 L ABG pO2 ABG O2 Saturation ABG Oxyhemoglobin 85.6 L ABG Sodium ABG Chloride ABG Glucose 121 H Oxyhemoglobin Carboxyhemoglobin 0.3 L Sodium Potassium Chloride Carbon Dioxide BUN Creatinine Glucose POC Glucose 162 H 227 H Hemoglobin A1c Ferritin AST ALT Alkaline Phosphatase Lactate Dehydrogenase C-Reactive Protein Total Protein Albumin Arterial Blood Glucose 121 H Coronavirus (PCR) 04/22/21 04/22/21 04/23/21 16:26 22:23 04:52 WBC MCHC RDW 15.7 H Lymph % (Auto) Lymph # (Auto) Baso # (Auto) Seg Neutrophils % Seg Neuts % (Manual) Lymphocytes % (Manual) Seg Neutrophils # Seg Neutrophils # Man Lymphocytes # (Manual) D-Dimer ABG pH POC ABG pO2 ABG pO2 ABG O2 Saturation ABG Oxyhemoglobin ABG Sodium ABG Chloride ABG Glucose Oxyhemoglobin Carboxyhemoglobin Sodium Potassium Chloride Carbon Dioxide BUN Creatinine Glucose POC Glucose 200 H 136 H Hemoglobin A1c Ferritin AST ALT Alkaline Phosphatase Lactate Dehydrogenase C-Reactive Protein Total Protein Albumin Arterial Blood Glucose Coronavirus (PCR) 04/23/21 04/23/21 04/23/21 04:52 12:06 17:41 WBC MCHC RDW Lymph % (Auto) Lymph # (Auto) Baso # (Auto) Seg Neutrophils % Seg Neuts % (Manual) Lymphocytes % (Manual) Seg Neutrophils # Seg Neutrophils # Man Lymphocytes # (Manual) D-Dimer ABG pH POC ABG pO2 ABG pO2 ABG O2 Saturation ABG Oxyhemoglobin ABG Sodium ABG Chloride ABG Glucose Oxyhemoglobin Carboxyhemoglobin Sodium 136 L Potassium Chloride 97.7 L Carbon Dioxide BUN 23 H Creatinine Glucose 101 H POC Glucose 202 H 169 H Hemoglobin A1c Ferritin AST 46 H ALT Alkaline Phosphatase Lactate Dehydrogenase C-Reactive Protein Total Protein Albumin 3.3 L Arterial Blood Glucose Coronavirus (PCR) 04/23/21 04/24/21 04/24/21 23:08 05:17 08:38 WBC MCHC RDW Lymph % (Auto) Lymph # (Auto) Baso # (Auto) Seg Neutrophils % Seg Neuts % (Manual) Lymphocytes % (Manual) Seg Neutrophils # Seg Neutrophils # Man Lymphocytes # (Manual) D-Dimer ABG pH POC ABG pO2 ABG pO2 ABG O2 Saturation ABG Oxyhemoglobin ABG Sodium ABG Chloride ABG Glucose Oxyhemoglobin Carboxyhemoglobin Sodium Potassium Chloride Carbon Dioxide BUN Creatinine Glucose POC Glucose 111 H 108 H 126 H Hemoglobin A1c Ferritin AST ALT Alkaline Phosphatase Lactate Dehydrogenase C-Reactive Protein Total Protein Albumin Arterial Blood Glucose Coronavirus (PCR) 04/24/21 04/24/21 04/24/21 11:54 17:57 21:23 WBC MCHC RDW Lymph % (Auto) Lymph # (Auto) Baso # (Auto) Seg Neutrophils % Seg Neuts % (Manual) Lymphocytes % (Manual) Seg Neutrophils # Seg Neutrophils # Man Lymphocytes # (Manual) D-Dimer ABG pH POC ABG pO2 ABG pO2 ABG O2 Saturation ABG Oxyhemoglobin ABG Sodium ABG Chloride ABG Glucose Oxyhemoglobin Carboxyhemoglobin Sodium Potassium Chloride Carbon Dioxide BUN Creatinine Glucose POC Glucose 147 H 177 H 138 H Hemoglobin A1c Ferritin AST ALT Alkaline Phosphatase Lactate Dehydrogenase C-Reactive Protein Total Protein Albumin Arterial Blood Glucose Coronavirus (PCR) 04/25/21 04/25/21 04/25/21 07:06 11:23 15:43 WBC MCHC RDW Lymph % (Auto) Lymph # (Auto) Baso # (Auto) Seg Neutrophils % Seg Neuts % (Manual) Lymphocytes % (Manual) Seg Neutrophils # Seg Neutrophils # Man Lymphocytes # (Manual) D-Dimer ABG pH POC ABG pO2 ABG pO2 ABG O2 Saturation ABG Oxyhemoglobin ABG Sodium ABG Chloride ABG Glucose Oxyhemoglobin Carboxyhemoglobin Sodium Potassium Chloride Carbon Dioxide BUN Creatinine Glucose POC Glucose 147 H 169 H 227 H Hemoglobin A1c Ferritin AST ALT Alkaline Phosphatase Lactate Dehydrogenase C-Reactive Protein Total Protein Albumin Arterial Blood Glucose Coronavirus (PCR) 04/25/21 04/26/21 04/26/21 21:22 02:45 05:15 WBC MCHC RDW Lymph % (Auto) Lymph # (Auto) Baso # (Auto) Seg Neutrophils % Seg Neuts % (Manual) Lymphocytes % (Manual) Seg Neutrophils # Seg Neutrophils # Man Lymphocytes # (Manual) D-Dimer ABG pH POC ABG pO2 70.7 L ABG pO2 ABG O2 Saturation ABG Oxyhemoglobin 93.0 L ABG Sodium 132.7 L ABG Chloride ABG Glucose 115 H Oxyhemoglobin Carboxyhemoglobin Sodium Potassium Chloride 95.8 L Carbon Dioxide 32 H BUN 20 H Creatinine Glucose 102 H POC Glucose 196 H Hemoglobin A1c Ferritin AST ALT Alkaline Phosphatase Lactate Dehydrogenase C-Reactive Protein Total Protein Albumin Arterial Blood Glucose 115 H Coronavirus (PCR) 04/26/21 04/26/21 04/26/21 11:49 16:09 21:07 WBC MCHC RDW Lymph % (Auto) Lymph # (Auto) Baso # (Auto) Seg Neutrophils % Seg Neuts % (Manual) Lymphocytes % (Manual) Seg Neutrophils # Seg Neutrophils # Man Lymphocytes # (Manual) D-Dimer ABG pH POC ABG pO2 ABG pO2 ABG O2 Saturation ABG Oxyhemoglobin ABG Sodium ABG Chloride ABG Glucose Oxyhemoglobin Carboxyhemoglobin Sodium Potassium Chloride Carbon Dioxide BUN Creatinine Glucose POC Glucose 114 H 188 H 136 H Hemoglobin A1c Ferritin AST ALT Alkaline Phosphatase Lactate Dehydrogenase C-Reactive Protein Total Protein Albumin Arterial Blood Glucose Coronavirus (PCR) 04/27/21 04/27/21 04/28/21 17:34 22:12 08:26 WBC MCHC RDW Lymph % (Auto) Lymph # (Auto) Baso # (Auto) Seg Neutrophils % Seg Neuts % (Manual) Lymphocytes % (Manual) Seg Neutrophils # Seg Neutrophils # Man Lymphocytes # (Manual) D-Dimer ABG pH POC ABG pO2 ABG pO2 ABG O2 Saturation ABG Oxyhemoglobin ABG Sodium ABG Chloride ABG Glucose Oxyhemoglobin Carboxyhemoglobin Sodium Potassium Chloride Carbon Dioxide BUN Creatinine Glucose POC Glucose 128 H 159 H 69 L Hemoglobin A1c Ferritin AST ALT Alkaline Phosphatase Lactate Dehydrogenase C-Reactive Protein Total Protein Albumin Arterial Blood Glucose Coronavirus (PCR) 04/28/21 04/28/21 04/29/21 12:22 21:11 06:05 WBC MCHC RDW Lymph % (Auto) Lymph # (Auto) Baso # (Auto) Seg Neutrophils % Seg Neuts % (Manual) Lymphocytes % (Manual) Seg Neutrophils # Seg Neutrophils # Man Lymphocytes # (Manual) D-Dimer ABG pH POC ABG pO2 ABG pO2 ABG O2 Saturation ABG Oxyhemoglobin ABG Sodium ABG Chloride ABG Glucose Oxyhemoglobin Carboxyhemoglobin Sodium 132 L Potassium Chloride 94.4 L Carbon Dioxide BUN Creatinine 0.2 L D Glucose 140 H POC Glucose 141 H 171 H Hemoglobin A1c Ferritin AST ALT Alkaline Phosphatase Lactate Dehydrogenase C-Reactive Protein Total Protein Albumin Arterial Blood Glucose Coronavirus (PCR) 04/29/21 04/29/21 04/29/21 06:05 07:24 11:36 WBC MCHC 35 H RDW 15.9 H Lymph % (Auto) Lymph # (Auto) Baso # (Auto) Seg Neutrophils % Seg Neuts % (Manual) Lymphocytes % (Manual) Seg Neutrophils # Seg Neutrophils # Man Lymphocytes # (Manual) D-Dimer ABG pH POC ABG pO2 ABG pO2 ABG O2 Saturation ABG Oxyhemoglobin ABG Sodium ABG Chloride ABG Glucose Oxyhemoglobin Carboxyhemoglobin Sodium Potassium Chloride Carbon Dioxide BUN Creatinine Glucose POC Glucose 141 H 220 H Hemoglobin A1c Ferritin AST ALT Alkaline Phosphatase Lactate Dehydrogenase C-Reactive Protein Total Protein Albumin Arterial Blood Glucose Coronavirus (PCR) 04/29/21 04/29/21 04/29/21 14:23 15:30 17:06 WBC MCHC RDW Lymph % (Auto) Lymph # (Auto) Baso # (Auto) Seg Neutrophils % Seg Neuts % (Manual) Lymphocytes % (Manual) Seg Neutrophils # Seg Neutrophils # Man Lymphocytes # (Manual) D-Dimer ABG pH POC ABG pO2 ABG pO2 52.6 L ABG O2 Saturation 86.4 L ABG Oxyhemoglobin ABG Sodium ABG Chloride ABG Glucose Oxyhemoglobin 84.6 L Carboxyhemoglobin Sodium Potassium Chloride Carbon Dioxide BUN Creatinine Glucose POC Glucose 173 H 158 H Hemoglobin A1c Ferritin AST ALT Alkaline Phosphatase Lactate Dehydrogenase C-Reactive Protein Total Protein Albumin Arterial Blood Glucose Coronavirus (PCR) 04/29/21 04/30/21 04/30/21 21:27 07:16 08:00 WBC MCHC RDW 16.1 H Lymph % (Auto) Lymph # (Auto) Baso # (Auto) Seg Neutrophils % Seg Neuts % (Manual) Lymphocytes % (Manual) Seg Neutrophils # Seg Neutrophils # Man Lymphocytes # (Manual) D-Dimer ABG pH POC ABG pO2 ABG pO2 ABG O2 Saturation ABG Oxyhemoglobin ABG Sodium ABG Chloride ABG Glucose Oxyhemoglobin Carboxyhemoglobin Sodium Potassium Chloride Carbon Dioxide BUN Creatinine Glucose POC Glucose 244 H 175 H Hemoglobin A1c Ferritin AST ALT Alkaline Phosphatase Lactate Dehydrogenase C-Reactive Protein Total Protein Albumin Arterial Blood Glucose Coronavirus (PCR) 04/30/21 04/30/21 04/30/21 08:00 08:00 11:03 WBC MCHC RDW Lymph % (Auto) Lymph # (Auto) Baso # (Auto) Seg Neutrophils % Seg Neuts % (Manual) Lymphocytes % (Manual) Seg Neutrophils # Seg Neutrophils # Man Lymphocytes # (Manual) D-Dimer 1796.87 H ABG pH POC ABG pO2 ABG pO2 ABG O2 Saturation ABG Oxyhemoglobin ABG Sodium ABG Chloride ABG Glucose Oxyhemoglobin Carboxyhemoglobin Sodium 135 L Potassium Chloride 96.3 L Carbon Dioxide BUN Creatinine 0.2 L Glucose 153 H POC Glucose 183 H Hemoglobin A1c Ferritin AST 41 H ALT 76 H Alkaline Phosphatase 160 H Lactate Dehydrogenase 522 H C-Reactive Protein Total Protein 6.1 L Albumin 3.1 L Arterial Blood Glucose Coronavirus (PCR) 04/30/21 04/30/21 05/01/21 17:04 22:17 05:39 WBC MCHC RDW Lymph % (Auto) Lymph # (Auto) Baso # (Auto) Seg Neutrophils % Seg Neuts % (Manual) Lymphocytes % (Manual) Seg Neutrophils # Seg Neutrophils # Man Lymphocytes # (Manual) D-Dimer ABG pH POC ABG pO2 ABG pO2 ABG O2 Saturation ABG Oxyhemoglobin ABG Sodium ABG Chloride ABG Glucose Oxyhemoglobin Carboxyhemoglobin Sodium 133 L Potassium Chloride 92.1 L Carbon Dioxide BUN 24 H Creatinine 0.4 L D Glucose 269 H POC Glucose 167 H 208 H Hemoglobin A1c Ferritin AST ALT 66 H Alkaline Phosphatase 142 H Lactate Dehydrogenase C-Reactive Protein Total Protein Albumin 3.2 L Arterial Blood Glucose Coronavirus (PCR) 05/01/21 05/01/21 05/01/21 05:39 05:39 07:45 WBC MCHC RDW 16.0 H Lymph % (Auto) Lymph # (Auto) Baso # (Auto) Seg Neutrophils % Seg Neuts % (Manual) Lymphocytes % (Manual) Seg Neutrophils # Seg Neutrophils # Man Lymphocytes # (Manual) D-Dimer 3984.95 H ABG pH POC ABG pO2 ABG pO2 ABG O2 Saturation ABG Oxyhemoglobin ABG Sodium ABG Chloride ABG Glucose Oxyhemoglobin Carboxyhemoglobin Sodium Potassium Chloride Carbon Dioxide BUN Creatinine Glucose POC Glucose 229 H Hemoglobin A1c Ferritin AST ALT Alkaline Phosphatase Lactate Dehydrogenase C-Reactive Protein Total Protein Albumin Arterial Blood Glucose Coronavirus (PCR) 05/01/21 05/01/21 05/01/21 12:10 15:46 21:06 WBC MCHC RDW Lymph % (Auto) Lymph # (Auto) Baso # (Auto) Seg Neutrophils % Seg Neuts % (Manual) Lymphocytes % (Manual) Seg Neutrophils # Seg Neutrophils # Man Lymphocytes # (Manual) D-Dimer ABG pH POC ABG pO2 ABG pO2 ABG O2 Saturation ABG Oxyhemoglobin ABG Sodium ABG Chloride ABG Glucose Oxyhemoglobin Carboxyhemoglobin Sodium Potassium Chloride Carbon Dioxide BUN Creatinine Glucose POC Glucose 296 H 279 H 232 H Hemoglobin A1c Ferritin AST ALT Alkaline Phosphatase Lactate Dehydrogenase C-Reactive Protein Total Protein Albumin Arterial Blood Glucose Coronavirus (PCR) 05/02/21 05/02/21 05/02/21 04:55 04:55 04:55 WBC MCHC RDW 16.1 H Lymph % (Auto) Lymph # (Auto) Baso # (Auto) Seg Neutrophils % Seg Neuts % (Manual) Lymphocytes % (Manual) Seg Neutrophils # Seg Neutrophils # Man Lymphocytes # (Manual) D-Dimer 1401.08 H ABG pH POC ABG pO2 ABG pO2 ABG O2 Saturation ABG Oxyhemoglobin ABG Sodium ABG Chloride ABG Glucose Oxyhemoglobin Carboxyhemoglobin Sodium 131 L Potassium Chloride 95.5 L Carbon Dioxide BUN 20 H Creatinine 0.3 L Glucose 288 H POC Glucose Hemoglobin A1c Ferritin AST ALT Alkaline Phosphatase Lactate Dehydrogenase C-Reactive Protein Total Protein 6.0 L Albumin 3.1 L Arterial Blood Glucose Coronavirus (PCR) 05/02/21 05/02/21 05/02/21 07:53 11:45 15:25 WBC MCHC RDW Lymph % (Auto) Lymph # (Auto) Baso # (Auto) Seg Neutrophils % Seg Neuts % (Manual) Lymphocytes % (Manual) Seg Neutrophils # Seg Neutrophils # Man Lymphocytes # (Manual) D-Dimer ABG pH POC ABG pO2 ABG pO2 ABG O2 Saturation ABG Oxyhemoglobin ABG Sodium ABG Chloride ABG Glucose Oxyhemoglobin Carboxyhemoglobin Sodium Potassium Chloride Carbon Dioxide BUN Creatinine Glucose POC Glucose 180 H 228 H 275 H Hemoglobin A1c Ferritin AST ALT Alkaline Phosphatase Lactate Dehydrogenase C-Reactive Protein Total Protein Albumin Arterial Blood Glucose Coronavirus (PCR) 05/02/21 05/03/21 05/03/21 22:56 04:30 04:49 WBC MCHC RDW Lymph % (Auto) Lymph # (Auto) Baso # (Auto) Seg Neutrophils % Seg Neuts % (Manual) Lymphocytes % (Manual) Seg Neutrophils # Seg Neutrophils # Man Lymphocytes # (Manual) D-Dimer ABG pH 7.229 L POC ABG pO2 65.3 L ABG pO2 ABG O2 Saturation ABG Oxyhemoglobin 87.8 L ABG Sodium 133.0 L ABG Chloride 97.0 L ABG Glucose 403 H Oxyhemoglobin Carboxyhemoglobin Sodium 130 L Potassium Chloride 94.9 L Carbon Dioxide BUN 20 H Creatinine 0.5 L D Glucose 359 H POC Glucose 293 H Hemoglobin A1c Ferritin AST 54 H ALT 75 H Alkaline Phosphatase 138 H Lactate Dehydrogenase C-Reactive Protein Total Protein Albumin 3.6 L Arterial Blood Glucose 403 H Coronavirus (PCR) 05/03/21 05/03/21 05/03/21 05:27 11:26 17:57 WBC MCHC RDW Lymph % (Auto) Lymph # (Auto) Baso # (Auto) Seg Neutrophils % Seg Neuts % (Manual) Lymphocytes % (Manual) Seg Neutrophils # Seg Neutrophils # Man Lymphocytes # (Manual) D-Dimer ABG pH POC ABG pO2 ABG pO2 ABG O2 Saturation ABG Oxyhemoglobin ABG Sodium ABG Chloride ABG Glucose Oxyhemoglobin Carboxyhemoglobin Sodium Potassium Chloride Carbon Dioxide BUN Creatinine Glucose POC Glucose 361 H 297 H 226 H Hemoglobin A1c Ferritin AST ALT Alkaline Phosphatase Lactate Dehydrogenase C-Reactive Protein Total Protein Albumin Arterial Blood Glucose Coronavirus (PCR) 05/03/21 05/04/21 05/04/21 23:12 05:12 07:30 WBC MCHC RDW Lymph % (Auto) Lymph # (Auto) Baso # (Auto) Seg Neutrophils % Seg Neuts % (Manual) Lymphocytes % (Manual) Seg Neutrophils # Seg Neutrophils # Man Lymphocytes # (Manual) D-Dimer ABG pH POC ABG pO2 ABG pO2 ABG O2 Saturation ABG Oxyhemoglobin ABG Sodium ABG Chloride ABG Glucose Oxyhemoglobin Carboxyhemoglobin Sodium Potassium Chloride Carbon Dioxide BUN Creatinine Glucose POC Glucose 282 H 285 H 254 H Hemoglobin A1c Ferritin AST ALT Alkaline Phosphatase Lactate Dehydrogenase C-Reactive Protein Total Protein Albumin Arterial Blood Glucose Coronavirus (PCR) 05/04/21 05/04/21 05/04/21 08:58 11:45 16:07 WBC MCHC RDW Lymph % (Auto) Lymph # (Auto) Baso # (Auto) Seg Neutrophils % Seg Neuts % (Manual) Lymphocytes % (Manual) Seg Neutrophils # Seg Neutrophils # Man Lymphocytes # (Manual) D-Dimer ABG pH POC ABG pO2 ABG pO2 ABG O2 Saturation ABG Oxyhemoglobin ABG Sodium ABG Chloride ABG Glucose Oxyhemoglobin Carboxyhemoglobin Sodium 134 L Potassium Chloride Carbon Dioxide BUN 20 H Creatinine 0.3 L Glucose 267 H POC Glucose 244 H 297 H Hemoglobin A1c Ferritin AST ALT Alkaline Phosphatase Lactate Dehydrogenase C-Reactive Protein Total Protein 6.0 L Albumin 3.2 L Arterial Blood Glucose Coronavirus (PCR) 05/04/21 05/05/21 05/05/21 23:32 05:00 05:13 WBC MCHC RDW Lymph % (Auto) Lymph # (Auto) Baso # (Auto) Seg Neutrophils % Seg Neuts % (Manual) Lymphocytes % (Manual) Seg Neutrophils # Seg Neutrophils # Man Lymphocytes # (Manual) D-Dimer ABG pH POC ABG pO2 ABG pO2 ABG O2 Saturation ABG Oxyhemoglobin ABG Sodium ABG Chloride ABG Glucose Oxyhemoglobin Carboxyhemoglobin Sodium 132 L Potassium Chloride 96.4 L Carbon Dioxide BUN 22 H Creatinine 0.3 L Glucose 228 H POC Glucose 154 H 260 H Hemoglobin A1c Ferritin AST ALT 67 H Alkaline Phosphatase Lactate Dehydrogenase C-Reactive Protein Total Protein 6.1 L Albumin 3.2 L Arterial Blood Glucose Coronavirus (PCR) 05/05/21 05/05/21 05/05/21 11:32 17:49 23:07 WBC MCHC RDW Lymph % (Auto) Lymph # (Auto) Baso # (Auto) Seg Neutrophils % Seg Neuts % (Manual) Lymphocytes % (Manual) Seg Neutrophils # Seg Neutrophils # Man Lymphocytes # (Manual) D-Dimer ABG pH POC ABG pO2 ABG pO2 ABG O2 Saturation ABG Oxyhemoglobin ABG Sodium ABG Chloride ABG Glucose Oxyhemoglobin Carboxyhemoglobin Sodium Potassium Chloride Carbon Dioxide BUN Creatinine Glucose POC Glucose 279 H 308 H 213 H Hemoglobin A1c Ferritin AST ALT Alkaline Phosphatase Lactate Dehydrogenase C-Reactive Protein Total Protein Albumin Arterial Blood Glucose Coronavirus (PCR) 05/06/21 05/06/21 05/06/21 05:00 05:00 05:20 WBC MCHC RDW 16.8 H Lymph % (Auto) Lymph # (Auto) Baso # (Auto) Seg Neutrophils % Seg Neuts % (Manual) 99.0 H Lymphocytes % (Manual) Seg Neutrophils # Seg Neutrophils # Man 10.9 H Lymphocytes # (Manual) 0.0 L D-Dimer ABG pH POC ABG pO2 ABG pO2 ABG O2 Saturation ABG Oxyhemoglobin ABG Sodium ABG Chloride ABG Glucose Oxyhemoglobin Carboxyhemoglobin Sodium 133 L Potassium Chloride Carbon Dioxide BUN 21 H Creatinine 0.3 L Glucose 259 H POC Glucose 308 H Hemoglobin A1c Ferritin AST ALT Alkaline Phosphatase Lactate Dehydrogenase C-Reactive Protein Total Protein Albumin 3.2 L Arterial Blood Glucose Coronavirus (PCR) 05/06/21 05/06/21 05/06/21 11:24 17:54 21:32 WBC MCHC RDW Lymph % (Auto) Lymph # (Auto) Baso # (Auto) Seg Neutrophils % Seg Neuts % (Manual) Lymphocytes % (Manual) Seg Neutrophils # Seg Neutrophils # Man Lymphocytes # (Manual) D-Dimer ABG pH POC ABG pO2 ABG pO2 ABG O2 Saturation ABG Oxyhemoglobin ABG Sodium ABG Chloride ABG Glucose Oxyhemoglobin Carboxyhemoglobin Sodium Potassium Chloride Carbon Dioxide BUN Creatinine Glucose POC Glucose 262 H 124 H 246 H Hemoglobin A1c Ferritin AST ALT Alkaline Phosphatase Lactate Dehydrogenase C-Reactive Protein Total Protein Albumin Arterial Blood Glucose Coronavirus (PCR) 05/06/21 05/07/21 05/07/21 23:10 04:54 04:54 WBC MCHC RDW Lymph % (Auto) Lymph # (Auto) Baso # (Auto) Seg Neutrophils % Seg Neuts % (Manual) Lymphocytes % (Manual) Seg Neutrophils # Seg Neutrophils # Man Lymphocytes # (Manual) D-Dimer 1609.28 H ABG pH POC ABG pO2 ABG pO2 ABG O2 Saturation ABG Oxyhemoglobin ABG Sodium ABG Chloride ABG Glucose Oxyhemoglobin Carboxyhemoglobin Sodium 136 L Potassium Chloride Carbon Dioxide BUN 23 H Creatinine 0.3 L Glucose 110 H POC Glucose 249 H Hemoglobin A1c Ferritin AST ALT Alkaline Phosphatase Lactate Dehydrogenase C-Reactive Protein Total Protein 6.2 L Albumin 3.0 L Arterial Blood Glucose Coronavirus (PCR) 05/07/21 05/07/21 05/07/21 04:54 04:54 11:41 WBC MCHC RDW Lymph % (Auto) Lymph # (Auto) Baso # (Auto) Seg Neutrophils % Seg Neuts % (Manual) Lymphocytes % (Manual) Seg Neutrophils # Seg Neutrophils # Man Lymphocytes # (Manual) D-Dimer ABG pH POC ABG pO2 ABG pO2 ABG O2 Saturation ABG Oxyhemoglobin ABG Sodium ABG Chloride ABG Glucose Oxyhemoglobin Carboxyhemoglobin Sodium Potassium Chloride Carbon Dioxide BUN Creatinine Glucose POC Glucose 118 H Hemoglobin A1c Ferritin 296.1 H AST ALT Alkaline Phosphatase Lactate Dehydrogenase 724 H C-Reactive Protein Total Protein Albumin Arterial Blood Glucose Coronavirus (PCR) 05/07/21 05/07/21 05/08/21 16:43 22:34 06:44 WBC MCHC RDW Lymph % (Auto) Lymph # (Auto) Baso # (Auto) Seg Neutrophils % Seg Neuts % (Manual) Lymphocytes % (Manual) Seg Neutrophils # Seg Neutrophils # Man Lymphocytes # (Manual) D-Dimer ABG pH POC ABG pO2 ABG pO2 ABG O2 Saturation ABG Oxyhemoglobin ABG Sodium ABG Chloride ABG Glucose Oxyhemoglobin Carboxyhemoglobin Sodium Potassium Chloride Carbon Dioxide BUN Creatinine Glucose POC Glucose 159 H 233 H 235 H Hemoglobin A1c Ferritin AST ALT Alkaline Phosphatase Lactate Dehydrogenase C-Reactive Protein Total Protein Albumin Arterial Blood Glucose Coronavirus (PCR) 05/08/21 05/08/21 05/08/21 07:49 11:56 17:13 WBC MCHC RDW Lymph % (Auto) Lymph # (Auto) Baso # (Auto) Seg Neutrophils % Seg Neuts % (Manual) Lymphocytes % (Manual) Seg Neutrophils # Seg Neutrophils # Man Lymphocytes # (Manual) D-Dimer ABG pH POC ABG pO2 ABG pO2 ABG O2 Saturation ABG Oxyhemoglobin ABG Sodium ABG Chloride ABG Glucose Oxyhemoglobin Carboxyhemoglobin Sodium Potassium Chloride Carbon Dioxide BUN Creatinine Glucose POC Glucose 219 H 184 H 182 H Hemoglobin A1c Ferritin AST ALT Alkaline Phosphatase Lactate Dehydrogenase C-Reactive Protein Total Protein Albumin Arterial Blood Glucose Coronavirus (PCR) 05/08/21 05/09/21 05/09/21 23:35 05:20 05:20 WBC MCHC RDW Lymph % (Auto) Lymph # (Auto) Baso # (Auto) Seg Neutrophils % Seg Neuts % (Manual) Lymphocytes % (Manual) Seg Neutrophils # Seg Neutrophils # Man Lymphocytes # (Manual) D-Dimer 1003.87 H ABG pH POC ABG pO2 ABG pO2 ABG O2 Saturation ABG Oxyhemoglobin ABG Sodium ABG Chloride ABG Glucose Oxyhemoglobin Carboxyhemoglobin Sodium Potassium Chloride Carbon Dioxide BUN Creatinine Glucose POC Glucose 198 H Hemoglobin A1c Ferritin 378.7 H AST ALT Alkaline Phosphatase Lactate Dehydrogenase C-Reactive Protein Total Protein Albumin Arterial Blood Glucose Coronavirus (PCR) 05/09/21 05/09/21 05/09/21 05:20 06:04 12:53 WBC MCHC RDW Lymph % (Auto) Lymph # (Auto) Baso # (Auto) Seg Neutrophils % Seg Neuts % (Manual) Lymphocytes % (Manual) Seg Neutrophils # Seg Neutrophils # Man Lymphocytes # (Manual) D-Dimer ABG pH POC ABG pO2 ABG pO2 ABG O2 Saturation ABG Oxyhemoglobin ABG Sodium ABG Chloride ABG Glucose Oxyhemoglobin Carboxyhemoglobin Sodium Potassium Chloride Carbon Dioxide BUN Creatinine Glucose POC Glucose 159 H 180 H Hemoglobin A1c Ferritin AST ALT Alkaline Phosphatase Lactate Dehydrogenase 558 H C-Reactive Protein 2.40 H Total Protein Albumin Arterial Blood Glucose Coronavirus (PCR) 05/09/21 05/09/21 05/10/21 16:43 21:27 10:18 WBC MCHC RDW Lymph % (Auto) Lymph # (Auto) Baso # (Auto) Seg Neutrophils % Seg Neuts % (Manual) Lymphocytes % (Manual) Seg Neutrophils # Seg Neutrophils # Man Lymphocytes # (Manual) D-Dimer ABG pH POC ABG pO2 ABG pO2 ABG O2 Saturation ABG Oxyhemoglobin ABG Sodium ABG Chloride ABG Glucose Oxyhemoglobin Carboxyhemoglobin Sodium Potassium Chloride Carbon Dioxide BUN Creatinine Glucose POC Glucose 212 H 285 H 261 H Hemoglobin A1c Ferritin AST ALT Alkaline Phosphatase Lactate Dehydrogenase C-Reactive Protein Total Protein Albumin Arterial Blood Glucose Coronavirus (PCR) 05/10/21 05/10/21 05/11/21 17:58 18:02 00:29 WBC MCHC RDW Lymph % (Auto) Lymph # (Auto) Baso # (Auto) Seg Neutrophils % Seg Neuts % (Manual) Lymphocytes % (Manual) Seg Neutrophils # Seg Neutrophils # Man Lymphocytes # (Manual) D-Dimer ABG pH POC ABG pO2 ABG pO2 ABG O2 Saturation ABG Oxyhemoglobin ABG Sodium ABG Chloride ABG Glucose Oxyhemoglobin Carboxyhemoglobin Sodium Potassium Chloride Carbon Dioxide BUN Creatinine Glucose POC Glucose 213 H 179 H 149 H Hemoglobin A1c Ferritin AST ALT Alkaline Phosphatase Lactate Dehydrogenase C-Reactive Protein Total Protein Albumin Arterial Blood Glucose Coronavirus (PCR) 05/11/21 05/11/21 05/11/21 05:22 11:32 17:00 WBC 14.9 H MCHC RDW 18.9 H Lymph % (Auto) 4.9 L Lymph # (Auto) 0.7 L Baso # (Auto) 0.2 H Seg Neutrophils % Seg Neuts % (Manual) Lymphocytes % (Manual) Seg Neutrophils # 13.3 H Seg Neutrophils # Man Lymphocytes # (Manual) D-Dimer ABG pH POC ABG pO2 ABG pO2 ABG O2 Saturation ABG Oxyhemoglobin ABG Sodium ABG Chloride ABG Glucose Oxyhemoglobin Carboxyhemoglobin Sodium Potassium Chloride Carbon Dioxide BUN Creatinine Glucose POC Glucose 162 H 179 H Hemoglobin A1c Ferritin AST ALT Alkaline Phosphatase Lactate Dehydrogenase C-Reactive Protein Total Protein Albumin Arterial Blood Glucose Coronavirus (PCR) 05/11/21 05/11/21 05/11/21 17:00 17:33 22:03 WBC MCHC RDW Lymph % (Auto) Lymph # (Auto) Baso # (Auto) Seg Neutrophils % Seg Neuts % (Manual) Lymphocytes % (Manual) Seg Neutrophils # Seg Neutrophils # Man Lymphocytes # (Manual) D-Dimer ABG pH POC ABG pO2 ABG pO2 ABG O2 Saturation ABG Oxyhemoglobin ABG Sodium ABG Chloride ABG Glucose Oxyhemoglobin Carboxyhemoglobin Sodium 135 L Potassium Chloride 97.3 L Carbon Dioxide BUN 21 H Creatinine 0.3 L Glucose 133 H POC Glucose 140 H 282 H Hemoglobin A1c Ferritin AST ALT 60 H Alkaline Phosphatase Lactate Dehydrogenase C-Reactive Protein Total Protein Albumin 3.1 L Arterial Blood Glucose Coronavirus (PCR) 05/12/21 05/12/21 05/12/21 04:05 04:05 04:05 WBC MCHC RDW 18.4 H Lymph % (Auto) Lymph # (Auto) Baso # (Auto) Seg Neutrophils % Seg Neuts % (Manual) 94.0 H Lymphocytes % (Manual) 4.0 L Seg Neutrophils # Seg Neutrophils # Man Lymphocytes # (Manual) 0.3 L D-Dimer ABG pH POC ABG pO2 ABG pO2 ABG O2 Saturation ABG Oxyhemoglobin ABG Sodium ABG Chloride ABG Glucose Oxyhemoglobin Carboxyhemoglobin Sodium 136 L Potassium Chloride Carbon Dioxide BUN 18 H Creatinine 0.2 L Glucose 142 H POC Glucose Hemoglobin A1c Ferritin 350.7 H AST ALT Alkaline Phosphatase Lactate Dehydrogenase 546 H C-Reactive Protein Total Protein 6.1 L Albumin 3.0 L Arterial Blood Glucose Coronavirus (PCR) 05/12/21 05/12/21 05/12/21 05:11 11:17 16:27 WBC MCHC RDW Lymph % (Auto) Lymph # (Auto) Baso # (Auto) Seg Neutrophils % Seg Neuts % (Manual) Lymphocytes % (Manual) Seg Neutrophils # Seg Neutrophils # Man Lymphocytes # (Manual) D-Dimer ABG pH POC ABG pO2 ABG pO2 ABG O2 Saturation ABG Oxyhemoglobin ABG Sodium ABG Chloride ABG Glucose Oxyhemoglobin Carboxyhemoglobin Sodium Potassium Chloride Carbon Dioxide BUN Creatinine Glucose POC Glucose 152 H 190 H 261 H Hemoglobin A1c Ferritin AST ALT Alkaline Phosphatase Lactate Dehydrogenase C-Reactive Protein Total Protein Albumin Arterial Blood Glucose Coronavirus (PCR) 05/12/21 05/13/21 20:55 11:08 WBC MCHC RDW Lymph % (Auto) Lymph # (Auto) Baso # (Auto) Seg Neutrophils % Seg Neuts % (Manual) Lymphocytes % (Manual) Seg Neutrophils # Seg Neutrophils # Man Lymphocytes # (Manual) D-Dimer ABG pH POC ABG pO2 ABG pO2 ABG O2 Saturation ABG Oxyhemoglobin ABG Sodium ABG Chloride ABG Glucose Oxyhemoglobin Carboxyhemoglobin Sodium Potassium Chloride Carbon Dioxide BUN Creatinine Glucose POC Glucose 231 H 106 H Hemoglobin A1c Ferritin AST ALT Alkaline Phosphatase Lactate Dehydrogenase C-Reactive Protein Total Protein Albumin Arterial Blood Glucose Coronavirus (PCR)
[2021-05-13] MEDS: busPIRone 10 MG TAB PO SCH ×2 (16:13→22:44)
--- NOTE | 2021-05-13 16:47 | Progress Note ---
Assessment and Plan Assessment and plan: This is a 50-year-old female with GERD, obesity, HLD who presented to emergency department on 04/16 with complaints of "I cannot breathe" stating that she experienced subjective fever, shortness of breath, malaise, body aches, and dry cough over the past week via EMS. In the emergency department patient was found to have a pulse ox of 86% on room air with exertion. CXR revealed bilateral pneumonia. Patient was admitted to the hospital service to the floor with acute hypoxic respiratory failure and because of COVID-19 PUI. Of note patient is unvaccinated for coronavirus. Now subsequently transferred to medical floor from [facility].. Assessment and plan: NEURO- acute pain; anxiety -PRN tylenol -S/p dexamethasone for comfort -Follows commands and RAY -PRN pain meds -Patient is Mongolian-speaking -Right eye- s/p 5 d course of cipro drops. suspect viral conjunctivitis. lubricating eye drops. supportive management. -Family updated on plan of care discussed with daughter over phone. CV- ST -SR-ST -S/p pressors now discontinued -MAP goal 65 -Pressure monitor per protocol Resp- acute hypoxic resp failure due to covid19 -S/p BiPAP, now discontinued -Currently on high per nasal cannula at flow rate 40 L/min, FiO2 90% -See RT notes for titration -Albuterol as needed -Pulmonary hygiene -Pulmonology following CTA chest ordered, patient could not tolerate today will reattempt tomorrow. GI- risk for protein gisella malnutrition given inc metabolic demand with resp insufficiency -TPN earlier in hospital admission due to BiPAP however now patient is tolerating p.o. -Patient on a GI soft diet with aspiration precautions -Nutrition following -Bowel regimen: Colace, senna, MiraLAX -PPI - volume overload; hyponatremia -Last 24 hours -125 -Trend BMP -Replace electrolytes as needed -Monitor intake and output Heme- coagulopathy of covid; on AC -Subcu heparin -Trend CBC -Transfuse for hemoglobin less than 7 -Bilateral lower extremity Doppler ultrasounds negative for DVT ; no CTA or VQ scan to rule out PE ID-covid19 pna; sepsis; viral conjunctivitis right eye: Oral candidiasis -zinc/vitC/D -methylpred 125 mg every 8; wean as appropriate -Infectious disease consulted, patient recommendations -S/p Actemra and remdesivir -Trend temperature and WBC curve -Follow culture data Nystatin solution ordered. Endo- hyperglycemia; obesity -glargine HS -SSI AC/HS -Avoid hypoglycemia Hospital course to date: 04/17: Patient seen and examined, still uncomfortable with Hypoxic respiratory failure and on oxygen, will continue to steroids therapy, start patient on Remdesivir, ID consulted, Pulmonary consult placed. 04/18: Patient seen and examined, she is currently being changed to High flow NC due to worsening HYPOXIA, will transfer to IMCU, Pulmonary and ID following. Will also give a dose of Lasix today. Monitor Inflammatory markers. 04/19: Patient seen and examined still on high flow due to hypoxia. Appears a bit more comfortable today than yesterday. Cough has decreased in frequency. We will continue high dose Dexameathasone to complete 10 days. continue on Remdesivir 200 mg IV q day x 1 followed by 100 mg IV q day x 4 days -Obtain q48-72h inflammatory markers - ferritin, Ddimer, CRP, LDH Will also give lasix daily for the next 3 days and monitor renal function. Family updated. Continue prone positioning as tolerated 04/20: Patient has some desaturation episodes yesterday was placed on BiPAP. Discussed with ICU team for bed availability for patient to be transferred up. Continue prone position as tolerated. 04/21: Patient remains with profound hypoxia secondary to COVID pneumonia. -Continue steroids -Continue remedesir -S/P Actmera 04/22: Patient remains on steroids and remdesivir. ABG shows persistent hypoxia. We will continue current management additional trial of Lasix for the next few days to see if any improvement. Monitor inflammatory markers as needed. Prognosis is guarded remains on high flow 04/23; patient was treated with remdesivir and Actemra. Continue steroid. Patient's prognosis is guarded. 04/24; patient is on steroid. Patient is currently on BiPAP. Prognosis is guarded. Pulmonary is following. Patient was given Lasix and Ativan. 04/25; continue steroid. Patient was on 40 L of high flow oxygen with saturation was 88%. Pulmonary is following. Prognosis is guarded. Patient was given lasix and ativan. 04/26; patient is on BiPAP and Precedex. Prognosis is guarded. 04/27; patient is on BiPAP and Precedex. Patient will finish steroid today and will start on Solu-Medrol tomorrow. Prognosis is guarded. Blood pressure is better today. Hold Lasix. 04/28 patient is on 100 Fio2 via BIPAP. moderately dyspneic, pulmonary note reviewed, lab results reviewed 04/29 no acute events- see systems review above 04/30 no acute events overnight - on airvo today- TPN started -see systems review above 05-01 no acute events overnight- tolerating airvo- see systems review above 05-02 no acute events overnight; tolerating airvo this AM- see systems review above 05/03: Patient has shown remarkable improvement, weaned down to 3 L and satting 95%. Will attempt to walk test today in anticipation for discharge tomorrow. Discussed with PT team to walk the patient today also. 05/04: Patient appears to have had a decline he was down to 3 L satting 95% with anticipation for discharge today but desatted down to 85% on room air and only 88% on 5 L he is now back at 8 L. I encourage incentive spirometer. While he is on Xarelto and has completed the severe steroids which was subsequently changed to Solu-Medrol I will go ahead and order a CTA to make sure that there is not a failure of Xarelto. We will continue to wean as tolerated discussed with nursing staff at bedside. 05/05/21 Patient is on 40 L of oxygen with 80% FiO2. Patient is encouraged to turn to the side more frequently. Patient is denied any shortness of breath and coughing. No other complaints. Follow the CT scan of the chest. Status post remdesivir and Actemra.Solu-Medrol 40 mg IV every 8 hours. Continue current management. Pulmonary follow-up. 05/06: Patient remains on high flow nasal cannula but states that she feels slightly better with the help of translation from her cousin Aspen. Patient is still awaiting a bed on the floor. Patient diet is being tolerated now so we will stop TPN will be stopped tonight. 05/07/2021: Patient remains on 40 L/min oxygen at 90% FiO2. Attempt made for CTA chest to rule out pulmonary embolism however patient desatted while at CT. Study was aborted, will reattempt again tomorrow. will follow along with renetta bertrand. Discussed/updated patient and patient's daughter over phone regarding any active clinical issues. Patient only complaint is oral pain from oral candidia sis noted on exam. Nystatin oral solution ordered. Daughter also voiced concern over patient eye drops which she stated that patient needed to restart from home. However she did not remember name of drops. advised daughter to call our hospital with drop name and dosing and we will restart. 05/08/2021: Started anticoagulation with Lovenox yesterday. Awaiting CTA chest completion. Will attempt to de-escalate oxygen as patient tolerates 05/09/2021: Continues to have high O2 requirements. CTA chest aborted due to patient not being able to tolerate transport to and from scanner. Will follow pulmonology recommendations 05/10/2021: Steroids increased yesterday to 125 mg every 8 hour. Continuing full dose anticoagulation. Respiratory status still remains challenging as it is difficult to wean patient off of hifnc. Minimal improvement compared to last few days. Plan to prone patient today. Otherwise: Some improvement in eye symptoms compared to yesterday. Will order more lubricating eye drops 05/11/2021: Still requires high flow nasal cannula, FiO2 de-escalated to 85%.. Encourage continued proning, patient care team aware. Continue with steroids, anticoagulation, antibiotics. 05/12/2021: High flow nasal cannula remains at flow rate 35 L/min and FiO2 of 85%. Patient appears more comfortable today. Started insulin regimen due to hyperglycemia likely multifactorial in the setting of underlying diabetes and high-dose steroids. Continue to encourage patient to prone. Discussed with pulmonology regarding patient underlying anxiety. We both agreed that low-dose BuSpar might be beneficial for the patient. 05/13/2020: hypoxic resp distress overnight. cpap ordered. Current settings on encounter 30/04 at 100% FIO2. Advised care (RN, RT, PT) team to continue to aggressively work with patient as far as proning. Patient can sit at side of bed and rest on bedside tray w/ pillow in "Rodin's thinker pose". continue high dose steroids, PRN ativan for anxiety, Buspar noted in pulm recs. History Interval history: Hypoxic overnight requiring CPAP. Patient was on CPAP machine on my encounter and appeared comfortable however disappointed that she is not improving. Spoke with her family regarding her clinical picture. Hospitalist Physical - Physical exam Narrative exam: Constitutional: no acute distress, alert, on CPAP machine Eyes: non-icteric, right eye erythematous some improvement noted ENT: dry, patchy white plaques noted Neck: supple Effort: normal Ascultation: Bilateral: diminished breath sounds Cardiovascular: regular rate and rhythm Gastrointestinal: normoactive bowel sounds, soft, non-tender, non-distended Integumentary: normal Extremities: no cyanosis, no edema, pink and warm Neurologic: normal mental status, non-focal exam, pupils equal and round, CN II- XII normal Psychiatric: mood appropriate, affect normal - Constitutional Vitals: Temp Pulse Resp BP Pulse Ox 98.3 F 76 16 114/64 99 05/13/21 05:18 05/13/21 05:18 05/13/21 05:18 05/13/21 05:18 05/13/21 05:18 General appearance: Present: mild distress Results - Labs CBC & Chem 7: 05/12/21 04:05 05/12/21 04:05 Labs: Laboratory Last Values WBC 6.8 K/mm3 (4.5-11.0) 05/12/21 04:05 RBC 4.24 M/mm3 (3.65-5.03) 05/12/21 04:05 Hgb 13.1 gm/dl (10.1-14.3) 05/12/21 04:05 Hct 38.8 % (30.3-42.9) 05/12/21 04:05 MCV 92 fl (79-97) 05/12/21 04:05 MCH 31 pg (28-32) 05/12/21 04:05 MCHC 34 % (30-34) 05/12/21 04:05 RDW 18.4 % (13.2-15.2) H 05/12/21 04:05 Plt Count 164 K/mm3 (140-440) 05/12/21 04:05 Lymph % (Auto) 4.9 % (13.4-35.0) L 05/11/21 17:00 Glynn % (Auto) 3.6 % (0.0-7.3) 05/11/21 17:00 Eos % (Auto) 0.4 % (0.0-4.3) 05/11/21 17:00 Baso % (Auto) 1.4 % (0.0-1.8) 05/11/21 17:00 Lymph # (Auto) 0.7 K/mm3 (1.2-5.4) L 05/11/21 17:00 Glynn # (Auto) 0.5 K/mm3 (0.0-0.8) 05/11/21 17:00 Eos # (Auto) 0.1 K/mm3 (0.0-0.4) 05/11/21 17:00 Baso # (Auto) 0.2 K/mm3 (0.0-0.1) H 05/11/21 17:00 Add Manual Diff Complete 05/12/21 04:05 Total Counted 100 05/12/21 04:05 Seg Neutrophils % Utilization Supervisor 05/12/21 04:05 Seg Neuts % (Manual) 94.0 % (40.0-70.0) H 05/12/21 04:05 Band Neutrophils % 1.0 % 05/12/21 04:05 Lymphocytes % (Manual) 4.0 % (13.4-35.0) L 05/12/21 04:05 Monocytes % (Manual) 1.0 % (0.0-7.3) 05/12/21 04:05 Nucleated RBC % Not Reportable 05/12/21 04:05 Seg Neutrophils # 13.3 K/mm3 (1.8-7.7) H 05/11/21 17:00 Seg Neutrophils # Man 6.4 K/mm3 (1.8-7.7) 05/12/21 04:05 Band Neutrophils # 0.1 K/mm3 05/12/21 04:05 Lymphocytes # (Manual) 0.3 K/mm3 (1.2-5.4) L 05/12/21 04:05 Abs React Lymphs (Man) 0.0 K/mm3 05/12/21 04:05 Monocytes # (Manual) 0.1 K/mm3 (0.0-0.8) 05/12/21 04:05 Eosinophils # (Manual) 0.0 K/mm3 (0.0-0.4) 05/12/21 04:05 Basophils # (Manual) 0.0 K/mm3 (0.0-0.1) 05/12/21 04:05 Metamyelocytes # 0.0 K/mm3 05/12/21 04:05 Myelocytes # 0.0 K/mm3 05/12/21 04:05 Promyelocytes # 0.0 K/mm3 05/12/21 04:05 Blast Cells # 0.0 K/mm3 05/12/21 04:05 WBC Morphology Not Reportable 05/12/21 04:05 Hypersegmented Neuts Not Reportable 05/12/21 04:05 Hyposegmented Neuts Not Reportable 05/12/21 04:05 Hypogranular Neuts Not Reportable 05/12/21 04:05 Smudge Cells Not Reportable 05/12/21 04:05 Toxic Granulation Not Reportable 05/12/21 04:05 Toxic Vacuolation Not Reportable 05/12/21 04:05 Dohle Bodies Not Reportable 05/12/21 04:05 Pelger-Huet Anomaly Not Reportable 05/12/21 04:05 Janelle Rods Not Reportable 05/12/21 04:05 Platelet Estimate Consistent w auto 05/12/21 04:05 Clumped Platelets Not Reportable 05/12/21 04:05 Plt Clumps, EDTA Not Reportable 05/12/21 04:05 Large Platelets Not Reportable 05/12/21 04:05 Giant Platelets Not Reportable 05/12/21 04:05 Platelet Satelliting Not Reportable 05/12/21 04:05 Plt Morphology Comment Not Reportable 05/12/21 04:05 RBC Morphology Normal 05/12/21 04:05 Dimorphic RBCs Not Reportable 05/12/21 04:05 Polychromasia Not Reportable 05/12/21 04:05 Hypochromasia Not Reportable 05/12/21 04:05 Poikilocytosis Not Reportable 05/12/21 04:05 Anisocytosis Not Reportable 05/12/21 04:05 Microcytosis Not Reportable 05/12/21 04:05 Macrocytosis Not Reportable 05/12/21 04:05 Spherocytes Not Reportable 05/12/21 04:05 Pappenheimer Bodies Not Reportable 05/12/21 04:05 Sickle Cells Not Reportable 05/12/21 04:05 Target Cells Not Reportable 05/12/21 04:05 Tear Drop Cells Not Reportable 05/12/21 04:05 Ovalocytes Not Reportable 05/12/21 04:05 Helmet Cells Not Reportable 05/12/21 04:05 Ahuja-Folcroft Bodies Not Reportable 05/12/21 04:05 [place] Rings Not Reportable 05/12/21 04:05 Rosamond Cells Not Reportable 05/12/21 04:05 Bite Cells Not Reportable 05/12/21 04:05 Crenated Cell Not Reportable 05/12/21 04:05 Elliptocytes Not Reportable 05/12/21 04:05 Acanthocytes (Spur) Not Reportable 05/12/21 04:05 Rouleaux Not Reportable 05/12/21 04:05 Hemoglobin C Crystals Not Reportable 05/12/21 04:05 Schistocytes Not Reportable 05/12/21 04:05 Malaria parasites Not Reportable 05/12/21 04:05 Justin Bodies Not Reportable 05/12/21 04:05 Hem Pathologist Commnt No 05/12/21 04:05 D-Dimer 190.77 ng/mlDDU (0-234) 05/12/21 04:05 ABG pH 7.229 (7.320-7.450) L 05/03/21 04:49 POC ABG pCO2 45.4 mmHg (32.0-48.0) 05/03/21 04:49 ABG pCO2 42.2 mm Hg 04/29/21 14:23 POC ABG pO2 65.3 mmHg (83-108) L 05/03/21 04:49 ABG pO2 52.6 mm Hg (80.0-90.0) L 04/29/21 14:23 POC ABG HCO3 18.5 05/03/21 04:49 ABG HCO3 26.0 mmol/L (20.0-26.0) 04/29/21 14:23 ABG O2 Saturation 88.4 (0-100) 05/03/21 04:49 ABG O2 Content 18.1 (0.0-44) 04/29/21 14:23 POC ABG Base Excess -8.9 05/03/21 04:49 ABG Base Excess 1.1 mmol/L (-2.0-3.0) 04/29/21 14:23 ABG Hemoglobin 15.8 (12.0-17.5) 05/03/21 04:49 ABG Oxyhemoglobin 87.8 (94-98) L 05/03/21 04:49 ABG Carboxyhemoglobin 1.5 % (0.0-5.0) 04/29/21 14:23 ABG Methemoglobin 0.1 (0.0-1.5) 05/03/21 04:49 ABG Sodium 133.0 mmol/L (136.0-145.0) L 05/03/21 04:49 ABG Potassium 3.9 mmol/L (3.40-4.50) 05/03/21 04:49 ABG Chloride 97.0 mmol/L (98-107) L 05/03/21 04:49 ABG Glucose 403 mg/dL (65-95) H 05/03/21 04:49 Oxyhemoglobin 84.6 % (95.0-99.0) L 04/29/21 14:23 Carboxyhemoglobin 0.6 (0.5-1.5) 05/03/21 04:49 FiO2 100 % 04/29/21 14:23 FiO2 % 100.0 05/03/21 04:49 Sodium 136 mmol/L (137-145) L 05/12/21 04:05 Potassium 4.2 mmol/L (3.6-5.0) 05/12/21 04:05 Chloride 99.5 mmol/L (98-107) 05/12/21 04:05 Carbon Dioxide 29 mmol/L (22-30) 05/12/21 04:05 Anion Gap 12 mmol/L 05/12/21 04:05 BUN 18 mg/dL (7-17) H 05/12/21 04:05 Creatinine 0.2 mg/dL (0.6-1.2) L 05/12/21 04:05 Estimated GFR > 60 ml/min 05/12/21 04:05 BUN/Creatinine Ratio 90 % 05/12/21 04:05 Glucose 142 mg/dL (65-100) H 05/12/21 04:05 POC Glucose 103 mg/dL (70-105) 05/13/21 16:22 Hemoglobin A1c 8.5 % (4-6) H 04/18/21 07:36 Calcium 9.1 mg/dL (8.4-10.2) 05/12/21 04:05 Phosphorus 3.60 mg/dL (2.5-4.5) 05/06/21 05:00 Magnesium 2.00 mg/dL (1.7-2.3) 05/06/21 05:00 Ferritin 350.7 ng/mL (10.0-200.0) H 05/12/21 04:05 Total Bilirubin 0.30 mg/dL (0.1-1.2) 05/12/21 04:05 AST 28 units/L (5-40) 05/12/21 04:05 ALT 54 units/L (7-56) 05/12/21 04:05 Alkaline Phosphatase 78 units/L (35-129) 05/12/21 04:05 Lactate Dehydrogenase 546 units/L (91-180) H 05/12/21 04:05 C-Reactive Protein 0.40 mg/dL (0.00-1.30) 05/12/21 04:05 Total Protein 6.1 g/dL (6.3-8.2) L 05/12/21 04:05 Albumin 3.0 g/dL (3.9-5) L 05/12/21 04:05 Albumin/Globulin Ratio 1.0 % 05/12/21 04:05 Triglycerides < 9 mg/dL (2-149) 05/03/21 04:30 Procalcitonin < 0.05 ng/mL (<0.15) 04/17/21 08:26 Arterial Blood Glucose 403 mg/dL (65-95) H 05/03/21 04:49 Arterial Blood Ionized Calcium 4.9 mg/dL (4.6-5.3) 05/03/21 04:49 Coronavirus (PCR) Positive (Negative) A 04/17/21 Unknown Amos/IV: Voiding Method External Female Catheter Active Medications - Current Medications Current Medications: Generic Name Dose Route Start Last Admin Trade Name Freq PRN Reason Stop Dose Admin Acetaminophen 650 mg 04/16/21 14:00 05/11/21 23:06 Acetaminophen 325 Mg Tab PO 650 mg Q4H PRN Administration Pain MILD(1-3)/Fever >100.5/[place] Albuterol 2.5 mg 04/16/21 13:39 04/21/21 20:39 Albuterol 2.5 Mg/3 Ml Nebu IH 2.5 mg Q4HRT PRN Administration Shortness Of Breath Artificial Tears 2 drops 04/28/21 18:15 05/13/21 07:09 Hypromellose 0.5% Ophth Soln 15 Ml OU 2 drops Q4H PRN Administration Dry Eye(s) Ascorbic Acid 500 mg 04/24/21 10:00 05/13/21 10:56 Ascorbic Acid 500 Mg Tab PO Not Given QDAY TUTU Buspirone HCl 10 mg 05/13/21 15:00 05/13/21 16:13 Buspirone 10 Mg Tab PO Not Given BID TUTU Cholecalciferol 1,000 unit 04/17/21 10:00 05/13/21 10:56 Cholecalciferol (Vit D3) 1000 Unit (25 Mcg) Tab PO Not Given QDAY TUTU Dextrose 50 ml 04/18/21 07:30 04/28/21 09:59 Dextrose 50% In Water (25gm) 50 Ml Syringe IV 50 ml Q30MIN PRN Administration Hypoglycemia Protocol Docusate Sodium 100 mg 04/30/21 10:00 05/13/21 10:56 Docusate Sodium 100 Mg Cap PO Not Given BID TUTU Enoxaparin Sodium 70 mg 05/08/21 06:00 05/13/21 07:08 Enoxaparin 80 Mg/0.8 Ml Inj SUB-Q 70 mg Q12H TUTU Administration Famotidine 20 mg 05/07/21 22:00 05/13/21 10:56 Famotidine 20 Mg Tab PO Not Given BID TUTU Dextrose 1,000 mls @ 75 mls/hr 05/13/21 11:00 05/13/21 11:31 D5w IV 75 mls/hr DIRECT TUTU Administration Insulin Glargine 25 units 05/04/21 11:05 05/13/21 10:00 Insulin Glargine 100 Units/Ml SUB-Q Not Given DAILY [facility] Insulin Glargine 10 units 05/06/21 22:00 05/13/21 00:09 Insulin Glargine 100 Units/Ml SUB-Q 10 units QHS TUTU Administration Insulin Human Lispro 0 unit 05/01/21 12:00 05/13/21 12:43 Insulin Lispro 100 Unit/Ml SUB-Q Not Given Q6HR [facility] Protocol Insulin Human Regular 6 units 05/07/21 12:00 05/13/21 11:30 Insulin Regular, Human 100 Units/1 Ml SUB-Q 6 units Q6HR TUTU Administration Lorazepam 1 mg 05/02/21 08:56 05/04/21 22:13 Lorazepam 2 Mg/Ml Vial IV 1 mg Q4H PRN Administration Anxiety Methylprednisolone Sodium Succinate 125 mg 05/09/21 16:13 05/13/21 16:14 Methylprednisolone Sod Succinate 125 Mg/2 Ml Inj IV 125 mg Q8HR TUTU Administration Multi-Ingred Cream/Lotion/Oil/Oint 1 applic 05/10/21 14:00 05/13/21 16:15 Mineral Oil/Petrolatum, White Ophth Oint 3.5 Gm OU 1 applic Q8HR TUTU Administration Nystatin 500,000 unit 05/07/21 18:00 05/13/21 15:58 Nystatin 500,000 Unit/5 Ml Oral Liqd PO Not Given QID TUTU Ondansetron HCl 4 mg 04/16/21 14:00 05/03/21 13:19 Ondansetron 4 Mg/2 Ml Inj IV 4 mg Q8H PRN Administration Nausea And Vomiting Polyethylene Glycol 17 gm 05/02/21 16:00 05/13/21 10:56 Polyethylene Glycol 3350 17 Gm Powder PO Not Given QDAY TUTU Senna 17.2 mg 05/02/21 22:00 05/12/21 23:59 Sennosides 8.6 Mg Tab PO 17.2 mg QHS TUTU Administration Sodium Chloride 10 ml 04/16/21 22:00 05/13/21 10:55 Sodium Chloride 0.9% 10 Ml Flush Syringe IV 10 ml BID TUTU Administration Sodium Chloride 10 ml 04/16/21 13:39 Sodium Chloride 0.9% 10 Ml Flush Syringe IV PRN PRN LINE FLUSH Zinc Sulfate 220 mg 04/16/21 22:00 05/13/21 10:57 Zinc Sulfate 220 Mg Cap PO Not Given BID TUTU Nutrition/Malnutrition Assess - Dietary Evaluation Nutrition/Malnutrition Findings: Nutrition Notes Start: 04/23/21 07:41 Freq: Status: Active Protocol: Document 05/10/21 13:31 FABIAN (Rec: 05/10/21 13:33 FABIAN [id number]) Nutrition Notes Initial or Follow up Reassessment Current Diagnosis Respiratory Failure Other Pertinent Diagnosis oral thrush, COVID-19 pneu Current Diet GI soft Labs/Tests POC BG 285-94 Pertinent Medications Reviewed Height 4 ft 11.84 in Weight 68.1 kg [place] Body Weight (kg) 45.09 BMI 29.5 Weight Status Overweight Subjective/Other Information Pt eating 100% of meals, per RN. Percent of energy/protein needs met: 100%/100% Burn Absent Trauma Absent Current % PO Good (75-100%) Minimum of two criteria Yes Energy Intake (severe) < or equal to 50% Estimated Energy Requirement > or equal to 5 days Interpretation of Weight Loss (severe) >5% in 1 month #2 Nutrition Diagnosis Malnutrition Diagnosis Progress(for reassessment Continues documentation) #1 Nutrition Diagnosis Inadequate oral intake As Evidenced by Signs and Symptoms pt meeting 100%/100% of kcal/ protein needs Diagnosis Progress(for reassessment Improved documentation) Is patient on ventilator? No Is Patient Ambulatory and/or Out of Bed No REE-([place] Je[place]-confined to bed) 1473.888 Kcal/Kg value to use for calculation 25 Approximate Energy Requirements Using 1703 kcal/Kg Calculation Used for Recommendations [place] Je[facility] Additional Notes Pro needs 1.2-2g/k-137g/ day Fluid needs 1ml/kcal Nutrition Intervention Add Supplement/Snack (indicate name/kcal Glucerna BID /protein ) Provides kCal: 440 Provides Protein (gm) 20 Goal #1 Continue to meet at least 75% of protein and energy needs Anticipated Discharge Needs: Consistent CHO Follow-Up By: 05/17/21 Additional Comments F/u: stable intakes
[2021-05-13] MEDS: SENNOSIDES 8.6 MG TAB PO SCH (22:45)
[2021-05-14] MEDS: INSULIN REGULAR, HUMAN 100 UNITS/1 ML SUB-Q SCH ×4 (01:22→18:11)
[2021-05-14] MEDS: INSULIN LISPRO 100 UNIT/ML SUB-Q SCH ×4 (01:23→18:10)
[2021-05-14 02:39] LABS: ABG Base Excess 4.9 mmol/L (-2.0-3.0); ABG HCO3 30.6 mmol/L (20.0-26.0); ABG Methemoglobin 0.6 % (0.0-1.5); ABG Oxygen Saturation 98.5 % (95.0-99.0); ABG PCO2 50.2 mm Hg; ABG PH 7.403 pH Units (7.350-7.450); ABG PO2 130.3 mm Hg (80.0-90.0)
[2021-05-14] MEDS: methylPREDNISolone Sod Succinate 125 MG/2 ML INJ IV SCH ×3 (05:50→22:28)
[2021-05-14] MEDS: DEXTROSE 5% IN WATER 1,000 ML IV SCH (05:50)
[2021-05-14] MEDS: ENOXAPARIN 80 MG/0.8 ML INJ SUB-Q SCH ×2 (05:50→18:11)
[2021-05-14] MEDS: MINERAL OIL/PETROLATUM, WHITE OPHTH OINT 3.5 GM OU SCH ×3 (05:54→22:32)
[2021-05-14 08:29] LABS: Alanine Aminotransferase 63 units/L (7-56); Blood Urea Nitrogen 15 mg/dL (7-17); Hemolysis Index 9
[2021-05-14 08:37] LABS: BUN/Creatinine Ratio 75
[2021-05-14] MEDS: POLYETHYLENE GLYCOL 3350 17 GM POWDER PO SCH ×2 (09:19→14:29)
[2021-05-14] MEDS: busPIRone 10 MG TAB PO SCH (09:19)
[2021-05-14] MEDS: DOCUSATE SODIUM 100 MG CAP PO SCH ×3 (09:19→22:28)
[2021-05-14] MEDS: INSULIN GLARGINE 100 UNITS/ML SUB-Q SCH ×2 (09:19→22:28)
[2021-05-14] MEDS: NYSTATIN 500,000 UNIT/5 ML ORAL LIQD PO SCH ×4 (09:20→22:27)
--- NOTE | 2021-05-14 11:22 | Progress Note ---
Assessment and Plan 50 y/o female with acute respiratory failure secondary to COVID19 pneumonia. 05/14/21: Will discontinue the buspar and make the ativan scheduled but will do q6 as oppose to q4 and attempt to leave parameters for nursing when not to give. If anxiety could be controlled, feel that patient could be weaned further. She has no funding so she is not a candidate for LTACH. Prone if possible. Guarded prognosis. This is her day. 05/13/21: Ordered buspar 10 BID to start with to help with anxiety. Please continue to wean FiO2 as tolerated. Will remind nurse that there is PRN ativan available. Continue higher doses of steroids. Prone if able. 05/12/21: Patient may need something longer acting for anxiety. Per chart has not gotten any ativan in days. Would be ok with either buspar or low dose klonopin bid. COntinue higher doses of steroids as patient seems to be responding. Prone if possible. 05/11/21: Continue high doses of steroids and continue to wean for sats >88%. Please encourage proning. 05/10/21: Will continue this dose of steroid at least through the weekend and assess for improvement. will speak with RT about aggressive weaning. Full dose anticoagulation continues. Very very guarded to poor prognosis. 05/09/21: Going to consider increasing steroids to 125q8, maybe as early as tomorrow. continue full dose anticoagulation. 05/08/21: Continue anticoagulation and steroids. Prone if possible. Anxiety control. No objection to CTA if this can happen. Very very guarded prognosis. 05/07/21: Spoke with IMS, not opposed to full dose anticoagulation. If patient goes back on NRB HFNC combo may need to consider restarting PPN again. Encourage proning. Guarded prognosis. 05/06/21: Continue to wean FiO2 and flow for sats >88%. Tolerating diet now so will stop PPN. Continue anxiety control. Continue IV steroids. Would not object to transfer to COVID floor if bed available. Not sure why she was titrated back up to 100% from 85 as all sats documented in the RT's notes were acceptable. Same for under vital signs as well. 05/03/21: Set back last night from yesterday. Continue bipap therapy for now and attempt HFNC maybe later this afternoon. Continue to use PRN ativan but may need to schedule as she likely took off mask from anxiety. Continue IV steroids. Hold on transfer to COVID Floor. 05/02/21: Continue to wean FiO2 as tolerated for sats >88%. Will continue bipap at night. Patient has no funding so not a candidate for LTACH. Given that she has been stable and not requiring the combo of HFNC and NRB, will consider moving to COVID floor. 05/01/21: Continue to wean FiO2 for sats >88%. A sat of 90 is more than acceptable and oxygen should not be increased for this unless patient desats and remains at a sat lower than 88. Bipap at night to give some form of relief and HFNC during the day. Currently on just this alone which is improvement. Ok with daily diuresis but must monitor renal function and BP closely. She was over diuresed last week and we ended up giving fluid back. Prognosis remains guarded. 04/30/21: Will start CLinimix today for nutritional support, without electrolytes. Check labs in am. Prone if able. Continue precedx for anxiety. Very very guarded prognosis. Attempting our best to not intubate. 04/29/21: Continue precedex. Continue IV solumedrol. Prone if able. Guarded prognosis. 04/28/21: Continue Precedex. Picc team attempting to place line now. Stable on Bipap. Ordered steroids IV solumedrol to start today. Prognosis remains guarded, still at very high risk for intubation. 04/27/21: Hypotension improving/improved. Hold on any further lasix dosing. Continue precedex to help with anxeity. later today please attempt HFNC with NRB if needed. Attempt to feed if possible. Steroids end today, please order solumedrol 40q8 to start tomorrow (04/28/21). guarded prognosis. 04/26/21: Hypotension today, most likely from precedex use and diuresis that I did the last several days. Will bolus again today. Consider midodrine if BP does not respond. 04/25/21: Lasix again today. Keep PRN ativan for now. Hold on precedex for now. Guarded prognosis. Labs ordered for tomorrow. 04/24/21: Lasix today. Will also start patient on low dose PRN ativan. If this does not help will then try precedex. Guarded prognosis. 04/23/21: Prone as tolerated. No lasix today. Continue decadron. Guarded prognosis. High risk for intubation and high mortality with intubation. 04/19/21: Prone as tolerated during the day and sleep prone at night. Continue IV remdesivir and steroids. Did get actemra. Guarded prognosis. 1. Daily net negative state 2. Prone if possible 3. IV remdesivir. 4. Should be a candidate for Actemra 5. IV steroids 6. Guarded Prognosis Subjective Date of service: 05/14/21 Principal diagnosis: Covid-19 Interval history: Patient not given the buspar but also not being given the PRN ativan to help with anxiety. Back on HFNC at 100% and NRB at 100% Objective Vital Signs - 12hr 05/14/21 05/14/21 05/14/21 02:00 02:44 04:31 Temperature 97.8 F Pulse Rate 55 L 56 L Respiratory 19 22 Rate Blood Pressure 104/58 O2 Sat by Pulse 98 98 100 Oximetry 05/14/21 05/14/21 07:40 09:14 Temperature Pulse Rate Respiratory Rate Blood Pressure O2 Sat by Pulse 94 97 Oximetry Constitutional: no acute distress, alert Eyes: non-icteric ENT: oropharynx moist Neck: supple Effort: normal Ascultation: Bilateral: diminished breath sounds Cardiovascular: regular rate and rhythm Gastrointestinal: normoactive bowel sounds, soft, non-tender, non-distended Integumentary: normal Extremities: no cyanosis, no edema, pink and warm Neurologic: normal mental status, non-focal exam, pupils equal and round, CN II- XII normal Psychiatric: mood appropriate, affect normal CBC and BMP: 05/12/21 04:05 05/14/21 07:13 ABG, PT/INR, D-dimer: ABG ABG pH 7.403 pH Units (7.350-7.450) 05/14/21 02:23 POC ABG pCO2 45.4 mmHg (32.0-48.0) 05/03/21 04:49 ABG pCO2 50.2 mm Hg 05/14/21 02:23 POC ABG pO2 65.3 mmHg (83-108) L 05/03/21 04:49 ABG pO2 130.3 mm Hg (80.0-90.0) H 05/14/21 02:23 POC ABG HCO3 18.5 05/03/21 04:49 ABG O2 Saturation 98.5 % (95.0-99.0) 05/14/21 02:23 PT/INR, D-dimer D-Dimer 712.80 ng/mlDDU (0-234) H 05/14/21 07:13 Abnormal lab findings: Abnormal Labs 04/16/21 04/16/21 04/16/21 11:42 11:42 11:42 WBC MCHC RDW 16.1 H Lymph % (Auto) 7.8 L Lymph # (Auto) 0.8 L Baso # (Auto) Seg Neutrophils % 87.7 H Seg Neuts % (Manual) Lymphocytes % (Manual) Seg Neutrophils # 8.5 H Seg Neutrophils # Man Lymphocytes # (Manual) D-Dimer 338.70 H ABG pH POC ABG pO2 ABG pO2 ABG HCO3 ABG O2 Saturation ABG Base Excess ABG Oxyhemoglobin ABG Sodium ABG Chloride ABG Glucose Oxyhemoglobin Carboxyhemoglobin Sodium Potassium Chloride Carbon Dioxide BUN Creatinine Glucose 194 H POC Glucose Hemoglobin A1c Ferritin AST ALT Alkaline Phosphatase Lactate Dehydrogenase C-Reactive Protein Total Protein 8.4 H Albumin 3.8 L Arterial Blood Glucose Coronavirus (PCR) 04/16/21 04/16/21 04/17/21 11:42 11:42 03:50 WBC MCHC RDW 16.0 H Lymph % (Auto) 7.7 L Lymph # (Auto) 0.6 L Baso # (Auto) Seg Neutrophils % 89.8 H Seg Neuts % (Manual) Lymphocytes % (Manual) Seg Neutrophils # Seg Neutrophils # Man Lymphocytes # (Manual) D-Dimer ABG pH POC ABG pO2 ABG pO2 ABG HCO3 ABG O2 Saturation ABG Base Excess ABG Oxyhemoglobin ABG Sodium ABG Chloride ABG Glucose Oxyhemoglobin Carboxyhemoglobin Sodium Potassium Chloride Carbon Dioxide BUN Creatinine Glucose 195 H POC Glucose Hemoglobin A1c Ferritin 254.3 H AST ALT Alkaline Phosphatase Lactate Dehydrogenase 359 H C-Reactive Protein 15.20 H Total Protein Albumin Arterial Blood Glucose Coronavirus (PCR) 04/17/21 04/17/21 04/17/21 03:50 08:26 08:26 WBC MCHC RDW Lymph % (Auto) Lymph # (Auto) Baso # (Auto) Seg Neutrophils % Seg Neuts % (Manual) Lymphocytes % (Manual) Seg Neutrophils # Seg Neutrophils # Man Lymphocytes # (Manual) D-Dimer 262.48 H ABG pH POC ABG pO2 ABG pO2 ABG HCO3 ABG O2 Saturation ABG Base Excess ABG Oxyhemoglobin ABG Sodium ABG Chloride ABG Glucose Oxyhemoglobin Carboxyhemoglobin Sodium Potassium Chloride Carbon Dioxide BUN 20 H Creatinine 0.5 L Glucose 249 H 225 H POC Glucose Hemoglobin A1c Ferritin AST ALT Alkaline Phosphatase Lactate Dehydrogenase 338 H C-Reactive Protein 17.20 H Total Protein Albumin 3.2 L Arterial Blood Glucose Coronavirus (PCR) 04/17/21 04/17/21 04/17/21 08:26 15:04 Unknown WBC MCHC RDW Lymph % (Auto) Lymph # (Auto) Baso # (Auto) Seg Neutrophils % Seg Neuts % (Manual) Lymphocytes % (Manual) Seg Neutrophils # Seg Neutrophils # Man Lymphocytes # (Manual) D-Dimer ABG pH POC ABG pO2 ABG pO2 ABG HCO3 ABG O2 Saturation ABG Base Excess ABG Oxyhemoglobin ABG Sodium ABG Chloride ABG Glucose Oxyhemoglobin Carboxyhemoglobin Sodium Potassium Chloride Carbon Dioxide BUN 20 H Creatinine 0.5 L Glucose 246 H POC Glucose Hemoglobin A1c Ferritin 392.0 H AST ALT Alkaline Phosphatase Lactate Dehydrogenase C-Reactive Protein Total Protein 8.3 H Albumin 3.1 L Arterial Blood Glucose Coronavirus (PCR) Positive A 04/18/21 04/18/21 04/18/21 05:06 05:06 07:36 WBC 11.6 H MCHC RDW 16.1 H Lymph % (Auto) Lymph # (Auto) Baso # (Auto) Seg Neutrophils % Seg Neuts % (Manual) Lymphocytes % (Manual) Seg Neutrophils # Seg Neutrophils # Man Lymphocytes # (Manual) D-Dimer ABG pH POC ABG pO2 ABG pO2 ABG HCO3 ABG O2 Saturation ABG Base Excess ABG Oxyhemoglobin ABG Sodium ABG Chloride ABG Glucose Oxyhemoglobin Carboxyhemoglobin Sodium Potassium 5.2 H Chloride Carbon Dioxide BUN 22 H Creatinine 0.5 L Glucose 315 H POC Glucose Hemoglobin A1c 8.5 H Ferritin AST ALT Alkaline Phosphatase Lactate Dehydrogenase C-Reactive Protein Total Protein Albumin 3.3 L Arterial Blood Glucose Coronavirus (PCR) 04/18/21 04/18/21 04/18/21 11:59 16:43 23:24 WBC MCHC RDW Lymph % (Auto) Lymph # (Auto) Baso # (Auto) Seg Neutrophils % Seg Neuts % (Manual) Lymphocytes % (Manual) Seg Neutrophils # Seg Neutrophils # Man Lymphocytes # (Manual) D-Dimer ABG pH POC ABG pO2 ABG pO2 ABG HCO3 ABG O2 Saturation ABG Base Excess ABG Oxyhemoglobin ABG Sodium ABG Chloride ABG Glucose Oxyhemoglobin Carboxyhemoglobin Sodium Potassium Chloride Carbon Dioxide BUN Creatinine Glucose POC Glucose 284 H 273 H 290 H Hemoglobin A1c Ferritin AST ALT Alkaline Phosphatase Lactate Dehydrogenase C-Reactive Protein Total Protein Albumin Arterial Blood Glucose Coronavirus (PCR) 04/19/21 04/19/21 04/19/21 04:19 04:19 08:10 WBC MCHC RDW 15.7 H Lymph % (Auto) Lymph # (Auto) Baso # (Auto) Seg Neutrophils % Seg Neuts % (Manual) Lymphocytes % (Manual) Seg Neutrophils # Seg Neutrophils # Man Lymphocytes # (Manual) D-Dimer ABG pH POC ABG pO2 ABG pO2 ABG HCO3 ABG O2 Saturation ABG Base Excess ABG Oxyhemoglobin ABG Sodium ABG Chloride ABG Glucose Oxyhemoglobin Carboxyhemoglobin Sodium Potassium Chloride Carbon Dioxide BUN 27 H Creatinine 0.4 L Glucose 184 H POC Glucose 194 H Hemoglobin A1c Ferritin AST ALT Alkaline Phosphatase Lactate Dehydrogenase C-Reactive Protein Total Protein Albumin 3.1 L Arterial Blood Glucose Coronavirus (PCR) 04/19/21 04/19/21 04/19/21 11:38 16:25 22:04 WBC MCHC RDW Lymph % (Auto) Lymph # (Auto) Baso # (Auto) Seg Neutrophils % Seg Neuts % (Manual) Lymphocytes % (Manual) Seg Neutrophils # Seg Neutrophils # Man Lymphocytes # (Manual) D-Dimer ABG pH POC ABG pO2 ABG pO2 ABG HCO3 ABG O2 Saturation ABG Base Excess ABG Oxyhemoglobin ABG Sodium ABG Chloride ABG Glucose Oxyhemoglobin Carboxyhemoglobin Sodium Potassium Chloride Carbon Dioxide BUN Creatinine Glucose POC Glucose 224 H 297 H 251 H Hemoglobin A1c Ferritin AST ALT Alkaline Phosphatase Lactate Dehydrogenase C-Reactive Protein Total Protein Albumin Arterial Blood Glucose Coronavirus (PCR) 04/20/21 04/20/21 04/20/21 05:28 08:43 16:21 WBC MCHC RDW Lymph % (Auto) Lymph # (Auto) Baso # (Auto) Seg Neutrophils % Seg Neuts % (Manual) Lymphocytes % (Manual) Seg Neutrophils # Seg Neutrophils # Man Lymphocytes # (Manual) D-Dimer ABG pH POC ABG pO2 ABG pO2 ABG HCO3 ABG O2 Saturation ABG Base Excess ABG Oxyhemoglobin ABG Sodium ABG Chloride ABG Glucose Oxyhemoglobin Carboxyhemoglobin Sodium Potassium Chloride Carbon Dioxide BUN 27 H Creatinine Glucose 192 H POC Glucose 173 H 253 H Hemoglobin A1c Ferritin AST ALT Alkaline Phosphatase Lactate Dehydrogenase C-Reactive Protein Total Protein Albumin 3.0 L Arterial Blood Glucose Coronavirus (PCR) 04/21/21 04/21/21 04/21/21 07:58 12:05 16:08 WBC MCHC RDW Lymph % (Auto) Lymph # (Auto) Baso # (Auto) Seg Neutrophils % Seg Neuts % (Manual) Lymphocytes % (Manual) Seg Neutrophils # Seg Neutrophils # Man Lymphocytes # (Manual) D-Dimer ABG pH POC ABG pO2 ABG pO2 ABG HCO3 ABG O2 Saturation ABG Base Excess ABG Oxyhemoglobin ABG Sodium ABG Chloride ABG Glucose Oxyhemoglobin Carboxyhemoglobin Sodium Potassium Chloride Carbon Dioxide BUN Creatinine Glucose POC Glucose 140 H 252 H 214 H Hemoglobin A1c Ferritin AST ALT Alkaline Phosphatase Lactate Dehydrogenase C-Reactive Protein Total Protein Albumin Arterial Blood Glucose Coronavirus (PCR) 04/21/21 04/22/21 04/22/21 21:42 08:37 12:01 WBC MCHC RDW Lymph % (Auto) Lymph # (Auto) Baso # (Auto) Seg Neutrophils % Seg Neuts % (Manual) Lymphocytes % (Manual) Seg Neutrophils # Seg Neutrophils # Man Lymphocytes # (Manual) D-Dimer ABG pH 7.457 H POC ABG pO2 49.4 L ABG pO2 ABG HCO3 ABG O2 Saturation ABG Base Excess ABG Oxyhemoglobin 85.6 L ABG Sodium ABG Chloride ABG Glucose 121 H Oxyhemoglobin Carboxyhemoglobin 0.3 L Sodium Potassium Chloride Carbon Dioxide BUN Creatinine Glucose POC Glucose 162 H 227 H Hemoglobin A1c Ferritin AST ALT Alkaline Phosphatase Lactate Dehydrogenase C-Reactive Protein Total Protein Albumin Arterial Blood Glucose 121 H Coronavirus (PCR) 04/22/21 04/22/21 04/23/21 16:26 22:23 04:52 WBC MCHC RDW 15.7 H Lymph % (Auto) Lymph # (Auto) Baso # (Auto) Seg Neutrophils % Seg Neuts % (Manual) Lymphocytes % (Manual) Seg Neutrophils # Seg Neutrophils # Man Lymphocytes # (Manual) D-Dimer ABG pH POC ABG pO2 ABG pO2 ABG HCO3 ABG O2 Saturation ABG Base Excess ABG Oxyhemoglobin ABG Sodium ABG Chloride ABG Glucose Oxyhemoglobin Carboxyhemoglobin Sodium Potassium Chloride Carbon Dioxide BUN Creatinine Glucose POC Glucose 200 H 136 H Hemoglobin A1c Ferritin AST ALT Alkaline Phosphatase Lactate Dehydrogenase C-Reactive Protein Total Protein Albumin Arterial Blood Glucose Coronavirus (PCR) 04/23/21 04/23/21 04/23/21 04:52 12:06 17:41 WBC MCHC RDW Lymph % (Auto) Lymph # (Auto) Baso # (Auto) Seg Neutrophils % Seg Neuts % (Manual) Lymphocytes % (Manual) Seg Neutrophils # Seg Neutrophils # Man Lymphocytes # (Manual) D-Dimer ABG pH POC ABG pO2 ABG pO2 ABG HCO3 ABG O2 Saturation ABG Base Excess ABG Oxyhemoglobin ABG Sodium ABG Chloride ABG Glucose Oxyhemoglobin Carboxyhemoglobin Sodium 136 L Potassium Chloride 97.7 L Carbon Dioxide BUN 23 H Creatinine Glucose 101 H POC Glucose 202 H 169 H Hemoglobin A1c Ferritin AST 46 H ALT Alkaline Phosphatase Lactate Dehydrogenase C-Reactive Protein Total Protein Albumin 3.3 L Arterial Blood Glucose Coronavirus (PCR) 04/23/21 04/24/21 04/24/21 23:08 05:17 08:38 WBC MCHC RDW Lymph % (Auto) Lymph # (Auto) Baso # (Auto) Seg Neutrophils % Seg Neuts % (Manual) Lymphocytes % (Manual) Seg Neutrophils # Seg Neutrophils # Man Lymphocytes # (Manual) D-Dimer ABG pH POC ABG pO2 ABG pO2 ABG HCO3 ABG O2 Saturation ABG Base Excess ABG Oxyhemoglobin ABG Sodium ABG Chloride ABG Glucose Oxyhemoglobin Carboxyhemoglobin Sodium Potassium Chloride Carbon Dioxide BUN Creatinine Glucose POC Glucose 111 H 108 H 126 H Hemoglobin A1c Ferritin AST ALT Alkaline Phosphatase Lactate Dehydrogenase C-Reactive Protein Total Protein Albumin Arterial Blood Glucose Coronavirus (PCR) 04/24/21 04/24/21 04/24/21 11:54 17:57 21:23 WBC MCHC RDW Lymph % (Auto) Lymph # (Auto) Baso # (Auto) Seg Neutrophils % Seg Neuts % (Manual) Lymphocytes % (Manual) Seg Neutrophils # Seg Neutrophils # Man Lymphocytes # (Manual) D-Dimer ABG pH POC ABG pO2 ABG pO2 ABG HCO3 ABG O2 Saturation ABG Base Excess ABG Oxyhemoglobin ABG Sodium ABG Chloride ABG Glucose Oxyhemoglobin Carboxyhemoglobin Sodium Potassium Chloride Carbon Dioxide BUN Creatinine Glucose POC Glucose 147 H 177 H 138 H Hemoglobin A1c Ferritin AST ALT Alkaline Phosphatase Lactate Dehydrogenase C-Reactive Protein Total Protein Albumin Arterial Blood Glucose Coronavirus (PCR) 04/25/21 04/25/21 04/25/21 07:06 11:23 15:43 WBC MCHC RDW Lymph % (Auto) Lymph # (Auto) Baso # (Auto) Seg Neutrophils % Seg Neuts % (Manual) Lymphocytes % (Manual) Seg Neutrophils # Seg Neutrophils # Man Lymphocytes # (Manual) D-Dimer ABG pH POC ABG pO2 ABG pO2 ABG HCO3 ABG O2 Saturation ABG Base Excess ABG Oxyhemoglobin ABG Sodium ABG Chloride ABG Glucose Oxyhemoglobin Carboxyhemoglobin Sodium Potassium Chloride Carbon Dioxide BUN Creatinine Glucose POC Glucose 147 H 169 H 227 H Hemoglobin A1c Ferritin AST ALT Alkaline Phosphatase Lactate Dehydrogenase C-Reactive Protein Total Protein Albumin Arterial Blood Glucose Coronavirus (PCR) 04/25/21 04/26/21 04/26/21 21:22 02:45 05:15 WBC MCHC RDW Lymph % (Auto) Lymph # (Auto) Baso # (Auto) Seg Neutrophils % Seg Neuts % (Manual) Lymphocytes % (Manual) Seg Neutrophils # Seg Neutrophils # Man Lymphocytes # (Manual) D-Dimer ABG pH POC ABG pO2 70.7 L ABG pO2 ABG HCO3 ABG O2 Saturation ABG Base Excess ABG Oxyhemoglobin 93.0 L ABG Sodium 132.7 L ABG Chloride ABG Glucose 115 H Oxyhemoglobin Carboxyhemoglobin Sodium Potassium Chloride 95.8 L Carbon Dioxide 32 H BUN 20 H Creatinine Glucose 102 H POC Glucose 196 H Hemoglobin A1c Ferritin AST ALT Alkaline Phosphatase Lactate Dehydrogenase C-Reactive Protein Total Protein Albumin Arterial Blood Glucose 115 H Coronavirus (PCR) 04/26/21 04/26/21 04/26/21 11:49 16:09 21:07 WBC MCHC RDW Lymph % (Auto) Lymph # (Auto) Baso # (Auto) Seg Neutrophils % Seg Neuts % (Manual) Lymphocytes % (Manual) Seg Neutrophils # Seg Neutrophils # Man Lymphocytes # (Manual) D-Dimer ABG pH POC ABG pO2 ABG pO2 ABG HCO3 ABG O2 Saturation ABG Base Excess ABG Oxyhemoglobin ABG Sodium ABG Chloride ABG Glucose Oxyhemoglobin Carboxyhemoglobin Sodium Potassium Chloride Carbon Dioxide BUN Creatinine Glucose POC Glucose 114 H 188 H 136 H Hemoglobin A1c Ferritin AST ALT Alkaline Phosphatase Lactate Dehydrogenase C-Reactive Protein Total Protein Albumin Arterial Blood Glucose Coronavirus (PCR) 04/27/21 04/27/21 04/28/21 17:34 22:12 08:26 WBC MCHC RDW Lymph % (Auto) Lymph # (Auto) Baso # (Auto) Seg Neutrophils % Seg Neuts % (Manual) Lymphocytes % (Manual) Seg Neutrophils # Seg Neutrophils # Man Lymphocytes # (Manual) D-Dimer ABG pH POC ABG pO2 ABG pO2 ABG HCO3 ABG O2 Saturation ABG Base Excess ABG Oxyhemoglobin ABG Sodium ABG Chloride ABG Glucose Oxyhemoglobin Carboxyhemoglobin Sodium Potassium Chloride Carbon Dioxide BUN Creatinine Glucose POC Glucose 128 H 159 H 69 L Hemoglobin A1c Ferritin AST ALT Alkaline Phosphatase Lactate Dehydrogenase C-Reactive Protein Total Protein Albumin Arterial Blood Glucose Coronavirus (PCR) 04/28/21 04/28/21 04/29/21 12:22 21:11 06:05 WBC MCHC RDW Lymph % (Auto) Lymph # (Auto) Baso # (Auto) Seg Neutrophils % Seg Neuts % (Manual) Lymphocytes % (Manual) Seg Neutrophils # Seg Neutrophils # Man Lymphocytes # (Manual) D-Dimer ABG pH POC ABG pO2 ABG pO2 ABG HCO3 ABG O2 Saturation ABG Base Excess ABG Oxyhemoglobin ABG Sodium ABG Chloride ABG Glucose Oxyhemoglobin Carboxyhemoglobin Sodium 132 L Potassium Chloride 94.4 L Carbon Dioxide BUN Creatinine 0.2 L D Glucose 140 H POC Glucose 141 H 171 H Hemoglobin A1c Ferritin AST ALT Alkaline Phosphatase Lactate Dehydrogenase C-Reactive Protein Total Protein Albumin Arterial Blood Glucose Coronavirus (PCR) 04/29/21 04/29/21 04/29/21 06:05 07:24 11:36 WBC MCHC 35 H RDW 15.9 H Lymph % (Auto) Lymph # (Auto) Baso # (Auto) Seg Neutrophils % Seg Neuts % (Manual) Lymphocytes % (Manual) Seg Neutrophils # Seg Neutrophils # Man Lymphocytes # (Manual) D-Dimer ABG pH POC ABG pO2 ABG pO2 ABG HCO3 ABG O2 Saturation ABG Base Excess ABG Oxyhemoglobin ABG Sodium ABG Chloride ABG Glucose Oxyhemoglobin Carboxyhemoglobin Sodium Potassium Chloride Carbon Dioxide BUN Creatinine Glucose POC Glucose 141 H 220 H Hemoglobin A1c Ferritin AST ALT Alkaline Phosphatase Lactate Dehydrogenase C-Reactive Protein Total Protein Albumin Arterial Blood Glucose Coronavirus (PCR) 04/29/21 04/29/21 04/29/21 14:23 15:30 17:06 WBC MCHC RDW Lymph % (Auto) Lymph # (Auto) Baso # (Auto) Seg Neutrophils % Seg Neuts % (Manual) Lymphocytes % (Manual) Seg Neutrophils # Seg Neutrophils # Man Lymphocytes # (Manual) D-Dimer ABG pH POC ABG pO2 ABG pO2 52.6 L ABG HCO3 ABG O2 Saturation 86.4 L ABG Base Excess ABG Oxyhemoglobin ABG Sodium ABG Chloride ABG Glucose Oxyhemoglobin 84.6 L Carboxyhemoglobin Sodium Potassium Chloride Carbon Dioxide BUN Creatinine Glucose POC Glucose 173 H 158 H Hemoglobin A1c Ferritin AST ALT Alkaline Phosphatase Lactate Dehydrogenase C-Reactive Protein Total Protein Albumin Arterial Blood Glucose Coronavirus (PCR) 04/29/21 04/30/21 04/30/21 21:27 07:16 08:00 WBC MCHC RDW 16.1 H Lymph % (Auto) Lymph # (Auto) Baso # (Auto) Seg Neutrophils % Seg Neuts % (Manual) Lymphocytes % (Manual) Seg Neutrophils # Seg Neutrophils # Man Lymphocytes # (Manual) D-Dimer ABG pH POC ABG pO2 ABG pO2 ABG HCO3 ABG O2 Saturation ABG Base Excess ABG Oxyhemoglobin ABG Sodium ABG Chloride ABG Glucose Oxyhemoglobin Carboxyhemoglobin Sodium Potassium Chloride Carbon Dioxide BUN Creatinine Glucose POC Glucose 244 H 175 H Hemoglobin A1c Ferritin AST ALT Alkaline Phosphatase Lactate Dehydrogenase C-Reactive Protein Total Protein Albumin Arterial Blood Glucose Coronavirus (PCR) 04/30/21 04/30/21 04/30/21 08:00 08:00 11:03 WBC MCHC RDW Lymph % (Auto) Lymph # (Auto) Baso # (Auto) Seg Neutrophils % Seg Neuts % (Manual) Lymphocytes % (Manual) Seg Neutrophils # Seg Neutrophils # Man Lymphocytes # (Manual) D-Dimer 1796.87 H ABG pH POC ABG pO2 ABG pO2 ABG HCO3 ABG O2 Saturation ABG Base Excess ABG Oxyhemoglobin ABG Sodium ABG Chloride ABG Glucose Oxyhemoglobin Carboxyhemoglobin Sodium 135 L Potassium Chloride 96.3 L Carbon Dioxide BUN Creatinine 0.2 L Glucose 153 H POC Glucose 183 H Hemoglobin A1c Ferritin AST 41 H ALT 76 H Alkaline Phosphatase 160 H Lactate Dehydrogenase 522 H C-Reactive Protein Total Protein 6.1 L Albumin 3.1 L Arterial Blood Glucose Coronavirus (PCR) 04/30/21 04/30/21 05/01/21 17:04 22:17 05:39 WBC MCHC RDW Lymph % (Auto) Lymph # (Auto) Baso # (Auto) Seg Neutrophils % Seg Neuts % (Manual) Lymphocytes % (Manual) Seg Neutrophils # Seg Neutrophils # Man Lymphocytes # (Manual) D-Dimer ABG pH POC ABG pO2 ABG pO2 ABG HCO3 ABG O2 Saturation ABG Base Excess ABG Oxyhemoglobin ABG Sodium ABG Chloride ABG Glucose Oxyhemoglobin Carboxyhemoglobin Sodium 133 L Potassium Chloride 92.1 L Carbon Dioxide BUN 24 H Creatinine 0.4 L D Glucose 269 H POC Glucose 167 H 208 H Hemoglobin A1c Ferritin AST ALT 66 H Alkaline Phosphatase 142 H Lactate Dehydrogenase C-Reactive Protein Total Protein Albumin 3.2 L Arterial Blood Glucose Coronavirus (PCR) 05/01/21 05/01/21 05/01/21 05:39 05:39 07:45 WBC MCHC RDW 16.0 H Lymph % (Auto) Lymph # (Auto) Baso # (Auto) Seg Neutrophils % Seg Neuts % (Manual) Lymphocytes % (Manual) Seg Neutrophils # Seg Neutrophils # Man Lymphocytes # (Manual) D-Dimer 3984.95 H ABG pH POC ABG pO2 ABG pO2 ABG HCO3 ABG O2 Saturation ABG Base Excess ABG Oxyhemoglobin ABG Sodium ABG Chloride ABG Glucose Oxyhemoglobin Carboxyhemoglobin Sodium Potassium Chloride Carbon Dioxide BUN Creatinine Glucose POC Glucose 229 H Hemoglobin A1c Ferritin AST ALT Alkaline Phosphatase Lactate Dehydrogenase C-Reactive Protein Total Protein Albumin Arterial Blood Glucose Coronavirus (PCR) 05/01/21 05/01/21 05/01/21 12:10 15:46 21:06 WBC MCHC RDW Lymph % (Auto) Lymph # (Auto) Baso # (Auto) Seg Neutrophils % Seg Neuts % (Manual) Lymphocytes % (Manual) Seg Neutrophils # Seg Neutrophils # Man Lymphocytes # (Manual) D-Dimer ABG pH POC ABG pO2 ABG pO2 ABG HCO3 ABG O2 Saturation ABG Base Excess ABG Oxyhemoglobin ABG Sodium ABG Chloride ABG Glucose Oxyhemoglobin Carboxyhemoglobin Sodium Potassium Chloride Carbon Dioxide BUN Creatinine Glucose POC Glucose 296 H 279 H 232 H Hemoglobin A1c Ferritin AST ALT Alkaline Phosphatase Lactate Dehydrogenase C-Reactive Protein Total Protein Albumin Arterial Blood Glucose Coronavirus (PCR) 05/02/21 05/02/21 05/02/21 04:55 04:55 04:55 WBC MCHC RDW 16.1 H Lymph % (Auto) Lymph # (Auto) Baso # (Auto) Seg Neutrophils % Seg Neuts % (Manual) Lymphocytes % (Manual) Seg Neutrophils # Seg Neutrophils # Man Lymphocytes # (Manual) D-Dimer 1401.08 H ABG pH POC ABG pO2 ABG pO2 ABG HCO3 ABG O2 Saturation ABG Base Excess ABG Oxyhemoglobin ABG Sodium ABG Chloride ABG Glucose Oxyhemoglobin Carboxyhemoglobin Sodium 131 L Potassium Chloride 95.5 L Carbon Dioxide BUN 20 H Creatinine 0.3 L Glucose 288 H POC Glucose Hemoglobin A1c Ferritin AST ALT Alkaline Phosphatase Lactate Dehydrogenase C-Reactive Protein Total Protein 6.0 L Albumin 3.1 L Arterial Blood Glucose Coronavirus (PCR) 05/02/21 05/02/21 05/02/21 07:53 11:45 15:25 WBC MCHC RDW Lymph % (Auto) Lymph # (Auto) Baso # (Auto) Seg Neutrophils % Seg Neuts % (Manual) Lymphocytes % (Manual) Seg Neutrophils # Seg Neutrophils # Man Lymphocytes # (Manual) D-Dimer ABG pH POC ABG pO2 ABG pO2 ABG HCO3 ABG O2 Saturation ABG Base Excess ABG Oxyhemoglobin ABG Sodium ABG Chloride ABG Glucose Oxyhemoglobin Carboxyhemoglobin Sodium Potassium Chloride Carbon Dioxide BUN Creatinine Glucose POC Glucose 180 H 228 H 275 H Hemoglobin A1c Ferritin AST ALT Alkaline Phosphatase Lactate Dehydrogenase C-Reactive Protein Total Protein Albumin Arterial Blood Glucose Coronavirus (PCR) 05/02/21 05/03/21 05/03/21 22:56 04:30 04:49 WBC MCHC RDW Lymph % (Auto) Lymph # (Auto) Baso # (Auto) Seg Neutrophils % Seg Neuts % (Manual) Lymphocytes % (Manual) Seg Neutrophils # Seg Neutrophils # Man Lymphocytes # (Manual) D-Dimer ABG pH 7.229 L POC ABG pO2 65.3 L ABG pO2 ABG HCO3 ABG O2 Saturation ABG Base Excess ABG Oxyhemoglobin 87.8 L ABG Sodium 133.0 L ABG Chloride 97.0 L ABG Glucose 403 H Oxyhemoglobin Carboxyhemoglobin Sodium 130 L Potassium Chloride 94.9 L Carbon Dioxide BUN 20 H Creatinine 0.5 L D Glucose 359 H POC Glucose 293 H Hemoglobin A1c Ferritin AST 54 H ALT 75 H Alkaline Phosphatase 138 H Lactate Dehydrogenase C-Reactive Protein Total Protein Albumin 3.6 L Arterial Blood Glucose 403 H Coronavirus (PCR) 05/03/21 05/03/21 05/03/21 05:27 11:26 17:57 WBC MCHC RDW Lymph % (Auto) Lymph # (Auto) Baso # (Auto) Seg Neutrophils % Seg Neuts % (Manual) Lymphocytes % (Manual) Seg Neutrophils # Seg Neutrophils # Man Lymphocytes # (Manual) D-Dimer ABG pH POC ABG pO2 ABG pO2 ABG HCO3 ABG O2 Saturation ABG Base Excess ABG Oxyhemoglobin ABG Sodium ABG Chloride ABG Glucose Oxyhemoglobin Carboxyhemoglobin Sodium Potassium Chloride Carbon Dioxide BUN Creatinine Glucose POC Glucose 361 H 297 H 226 H Hemoglobin A1c Ferritin AST ALT Alkaline Phosphatase Lactate Dehydrogenase C-Reactive Protein Total Protein Albumin Arterial Blood Glucose Coronavirus (PCR) 05/03/21 05/04/21 05/04/21 23:12 05:12 07:30 WBC MCHC RDW Lymph % (Auto) Lymph # (Auto) Baso # (Auto) Seg Neutrophils % Seg Neuts % (Manual) Lymphocytes % (Manual) Seg Neutrophils # Seg Neutrophils # Man Lymphocytes # (Manual) D-Dimer ABG pH POC ABG pO2 ABG pO2 ABG HCO3 ABG O2 Saturation ABG Base Excess ABG Oxyhemoglobin ABG Sodium ABG Chloride ABG Glucose Oxyhemoglobin Carboxyhemoglobin Sodium Potassium Chloride Carbon Dioxide BUN Creatinine Glucose POC Glucose 282 H 285 H 254 H Hemoglobin A1c Ferritin AST ALT Alkaline Phosphatase Lactate Dehydrogenase C-Reactive Protein Total Protein Albumin Arterial Blood Glucose Coronavirus (PCR) 05/04/21 05/04/21 05/04/21 08:58 11:45 16:07 WBC MCHC RDW Lymph % (Auto) Lymph # (Auto) Baso # (Auto) Seg Neutrophils % Seg Neuts % (Manual) Lymphocytes % (Manual) Seg Neutrophils # Seg Neutrophils # Man Lymphocytes # (Manual) D-Dimer ABG pH POC ABG pO2 ABG pO2 ABG HCO3 ABG O2 Saturation ABG Base Excess ABG Oxyhemoglobin ABG Sodium ABG Chloride ABG Glucose Oxyhemoglobin Carboxyhemoglobin Sodium 134 L Potassium Chloride Carbon Dioxide BUN 20 H Creatinine 0.3 L Glucose 267 H POC Glucose 244 H 297 H Hemoglobin A1c Ferritin AST ALT Alkaline Phosphatase Lactate Dehydrogenase C-Reactive Protein Total Protein 6.0 L Albumin 3.2 L Arterial Blood Glucose Coronavirus (PCR) 05/04/21 05/05/21 05/05/21 23:32 05:00 05:13 WBC MCHC RDW Lymph % (Auto) Lymph # (Auto) Baso # (Auto) Seg Neutrophils % Seg Neuts % (Manual) Lymphocytes % (Manual) Seg Neutrophils # Seg Neutrophils # Man Lymphocytes # (Manual) D-Dimer ABG pH POC ABG pO2 ABG pO2 ABG HCO3 ABG O2 Saturation ABG Base Excess ABG Oxyhemoglobin ABG Sodium ABG Chloride ABG Glucose Oxyhemoglobin Carboxyhemoglobin Sodium 132 L Potassium Chloride 96.4 L Carbon Dioxide BUN 22 H Creatinine 0.3 L Glucose 228 H POC Glucose 154 H 260 H Hemoglobin A1c Ferritin AST ALT 67 H Alkaline Phosphatase Lactate Dehydrogenase C-Reactive Protein Total Protein 6.1 L Albumin 3.2 L Arterial Blood Glucose Coronavirus (PCR) 05/05/21 05/05/21 05/05/21 11:32 17:49 23:07 WBC MCHC RDW Lymph % (Auto) Lymph # (Auto) Baso # (Auto) Seg Neutrophils % Seg Neuts % (Manual) Lymphocytes % (Manual) Seg Neutrophils # Seg Neutrophils # Man Lymphocytes # (Manual) D-Dimer ABG pH POC ABG pO2 ABG pO2 ABG HCO3 ABG O2 Saturation ABG Base Excess ABG Oxyhemoglobin ABG Sodium ABG Chloride ABG Glucose Oxyhemoglobin Carboxyhemoglobin Sodium Potassium Chloride Carbon Dioxide BUN Creatinine Glucose POC Glucose 279 H 308 H 213 H Hemoglobin A1c Ferritin AST ALT Alkaline Phosphatase Lactate Dehydrogenase C-Reactive Protein Total Protein Albumin Arterial Blood Glucose Coronavirus (PCR) 05/06/21 05/06/21 05/06/21 05:00 05:00 05:20 WBC MCHC RDW 16.8 H Lymph % (Auto) Lymph # (Auto) Baso # (Auto) Seg Neutrophils % Seg Neuts % (Manual) 99.0 H Lymphocytes % (Manual) Seg Neutrophils # Seg Neutrophils # Man 10.9 H Lymphocytes # (Manual) 0.0 L D-Dimer ABG pH POC ABG pO2 ABG pO2 ABG HCO3 ABG O2 Saturation ABG Base Excess ABG Oxyhemoglobin ABG Sodium ABG Chloride ABG Glucose Oxyhemoglobin Carboxyhemoglobin Sodium 133 L Potassium Chloride Carbon Dioxide BUN 21 H Creatinine 0.3 L Glucose 259 H POC Glucose 308 H Hemoglobin A1c Ferritin AST ALT Alkaline Phosphatase Lactate Dehydrogenase C-Reactive Protein Total Protein Albumin 3.2 L Arterial Blood Glucose Coronavirus (PCR) 05/06/21 05/06/21 05/06/21 11:24 17:54 21:32 WBC MCHC RDW Lymph % (Auto) Lymph # (Auto) Baso # (Auto) Seg Neutrophils % Seg Neuts % (Manual) Lymphocytes % (Manual) Seg Neutrophils # Seg Neutrophils # Man Lymphocytes # (Manual) D-Dimer ABG pH POC ABG pO2 ABG pO2 ABG HCO3 ABG O2 Saturation ABG Base Excess ABG Oxyhemoglobin ABG Sodium ABG Chloride ABG Glucose Oxyhemoglobin Carboxyhemoglobin Sodium Potassium Chloride Carbon Dioxide BUN Creatinine Glucose POC Glucose 262 H 124 H 246 H Hemoglobin A1c Ferritin AST ALT Alkaline Phosphatase Lactate Dehydrogenase C-Reactive Protein Total Protein Albumin Arterial Blood Glucose Coronavirus (PCR) 05/06/21 05/07/21 05/07/21 23:10 04:54 04:54 WBC MCHC RDW Lymph % (Auto) Lymph # (Auto) Baso # (Auto) Seg Neutrophils % Seg Neuts % (Manual) Lymphocytes % (Manual) Seg Neutrophils # Seg Neutrophils # Man Lymphocytes # (Manual) D-Dimer 1609.28 H ABG pH POC ABG pO2 ABG pO2 ABG HCO3 ABG O2 Saturation ABG Base Excess ABG Oxyhemoglobin ABG Sodium ABG Chloride ABG Glucose Oxyhemoglobin Carboxyhemoglobin Sodium 136 L Potassium Chloride Carbon Dioxide BUN 23 H Creatinine 0.3 L Glucose 110 H POC Glucose 249 H Hemoglobin A1c Ferritin AST ALT Alkaline Phosphatase Lactate Dehydrogenase C-Reactive Protein Total Protein 6.2 L Albumin 3.0 L Arterial Blood Glucose Coronavirus (PCR) 05/07/21 05/07/21 05/07/21 04:54 04:54 11:41 WBC MCHC RDW Lymph % (Auto) Lymph # (Auto) Baso # (Auto) Seg Neutrophils % Seg Neuts % (Manual) Lymphocytes % (Manual) Seg Neutrophils # Seg Neutrophils # Man Lymphocytes # (Manual) D-Dimer ABG pH POC ABG pO2 ABG pO2 ABG HCO3 ABG O2 Saturation ABG Base Excess ABG Oxyhemoglobin ABG Sodium ABG Chloride ABG Glucose Oxyhemoglobin Carboxyhemoglobin Sodium Potassium Chloride Carbon Dioxide BUN Creatinine Glucose POC Glucose 118 H Hemoglobin A1c Ferritin 296.1 H AST ALT Alkaline Phosphatase Lactate Dehydrogenase 724 H C-Reactive Protein Total Protein Albumin Arterial Blood Glucose Coronavirus (PCR) 05/07/21 05/07/21 05/08/21 16:43 22:34 06:44 WBC MCHC RDW Lymph % (Auto) Lymph # (Auto) Baso # (Auto) Seg Neutrophils % Seg Neuts % (Manual) Lymphocytes % (Manual) Seg Neutrophils # Seg Neutrophils # Man Lymphocytes # (Manual) D-Dimer ABG pH POC ABG pO2 ABG pO2 ABG HCO3 ABG O2 Saturation ABG Base Excess ABG Oxyhemoglobin ABG Sodium ABG Chloride ABG Glucose Oxyhemoglobin Carboxyhemoglobin Sodium Potassium Chloride Carbon Dioxide BUN Creatinine Glucose POC Glucose 159 H 233 H 235 H Hemoglobin A1c Ferritin AST ALT Alkaline Phosphatase Lactate Dehydrogenase C-Reactive Protein Total Protein Albumin Arterial Blood Glucose Coronavirus (PCR) 05/08/21 05/08/21 05/08/21 07:49 11:56 17:13 WBC MCHC RDW Lymph % (Auto) Lymph # (Auto) Baso # (Auto) Seg Neutrophils % Seg Neuts % (Manual) Lymphocytes % (Manual) Seg Neutrophils # Seg Neutrophils # Man Lymphocytes # (Manual) D-Dimer ABG pH POC ABG pO2 ABG pO2 ABG HCO3 ABG O2 Saturation ABG Base Excess ABG Oxyhemoglobin ABG Sodium ABG Chloride ABG Glucose Oxyhemoglobin Carboxyhemoglobin Sodium Potassium Chloride Carbon Dioxide BUN Creatinine Glucose POC Glucose 219 H 184 H 182 H Hemoglobin A1c Ferritin AST ALT Alkaline Phosphatase Lactate Dehydrogenase C-Reactive Protein Total Protein Albumin Arterial Blood Glucose Coronavirus (PCR) 05/08/21 05/09/21 05/09/21 23:35 05:20 05:20 WBC MCHC RDW Lymph % (Auto) Lymph # (Auto) Baso # (Auto) Seg Neutrophils % Seg Neuts % (Manual) Lymphocytes % (Manual) Seg Neutrophils # Seg Neutrophils # Man Lymphocytes # (Manual) D-Dimer 1003.87 H ABG pH POC ABG pO2 ABG pO2 ABG HCO3 ABG O2 Saturation ABG Base Excess ABG Oxyhemoglobin ABG Sodium ABG Chloride ABG Glucose Oxyhemoglobin Carboxyhemoglobin Sodium Potassium Chloride Carbon Dioxide BUN Creatinine Glucose POC Glucose 198 H Hemoglobin A1c Ferritin 378.7 H AST ALT Alkaline Phosphatase Lactate Dehydrogenase C-Reactive Protein Total Protein Albumin Arterial Blood Glucose Coronavirus (PCR) 05/09/21 05/09/21 05/09/21 05:20 06:04 12:53 WBC MCHC RDW Lymph % (Auto) Lymph # (Auto) Baso # (Auto) Seg Neutrophils % Seg Neuts % (Manual) Lymphocytes % (Manual) Seg Neutrophils # Seg Neutrophils # Man Lymphocytes # (Manual) D-Dimer ABG pH POC ABG pO2 ABG pO2 ABG HCO3 ABG O2 Saturation ABG Base Excess ABG Oxyhemoglobin ABG Sodium ABG Chloride ABG Glucose Oxyhemoglobin Carboxyhemoglobin Sodium Potassium Chloride Carbon Dioxide BUN Creatinine Glucose POC Glucose 159 H 180 H Hemoglobin A1c Ferritin AST ALT Alkaline Phosphatase Lactate Dehydrogenase 558 H C-Reactive Protein 2.40 H Total Protein Albumin Arterial Blood Glucose Coronavirus (PCR) 05/09/21 05/09/21 05/10/21 16:43 21:27 10:18 WBC MCHC RDW Lymph % (Auto) Lymph # (Auto) Baso # (Auto) Seg Neutrophils % Seg Neuts % (Manual) Lymphocytes % (Manual) Seg Neutrophils # Seg Neutrophils # Man Lymphocytes # (Manual) D-Dimer ABG pH POC ABG pO2 ABG pO2 ABG HCO3 ABG O2 Saturation ABG Base Excess ABG Oxyhemoglobin ABG Sodium ABG Chloride ABG Glucose Oxyhemoglobin Carboxyhemoglobin Sodium Potassium Chloride Carbon Dioxide BUN Creatinine Glucose POC Glucose 212 H 285 H 261 H Hemoglobin A1c Ferritin AST ALT Alkaline Phosphatase Lactate Dehydrogenase C-Reactive Protein Total Protein Albumin Arterial Blood Glucose Coronavirus (PCR) 05/10/21 05/10/21 05/11/21 17:58 18:02 00:29 WBC MCHC RDW Lymph % (Auto) Lymph # (Auto) Baso # (Auto) Seg Neutrophils % Seg Neuts % (Manual) Lymphocytes % (Manual) Seg Neutrophils # Seg Neutrophils # Man Lymphocytes # (Manual) D-Dimer ABG pH POC ABG pO2 ABG pO2 ABG HCO3 ABG O2 Saturation ABG Base Excess ABG Oxyhemoglobin ABG Sodium ABG Chloride ABG Glucose Oxyhemoglobin Carboxyhemoglobin Sodium Potassium Chloride Carbon Dioxide BUN Creatinine Glucose POC Glucose 213 H 179 H 149 H Hemoglobin A1c Ferritin AST ALT Alkaline Phosphatase Lactate Dehydrogenase C-Reactive Protein Total Protein Albumin Arterial Blood Glucose Coronavirus (PCR) 05/11/21 05/11/21 05/11/21 05:22 11:32 17:00 WBC 14.9 H MCHC RDW 18.9 H Lymph % (Auto) 4.9 L Lymph # (Auto) 0.7 L Baso # (Auto) 0.2 H Seg Neutrophils % Seg Neuts % (Manual) Lymphocytes % (Manual) Seg Neutrophils # 13.3 H Seg Neutrophils # Man Lymphocytes # (Manual) D-Dimer ABG pH POC ABG pO2 ABG pO2 ABG HCO3 ABG O2 Saturation ABG Base Excess ABG Oxyhemoglobin ABG Sodium ABG Chloride ABG Glucose Oxyhemoglobin Carboxyhemoglobin Sodium Potassium Chloride Carbon Dioxide BUN Creatinine Glucose POC Glucose 162 H 179 H Hemoglobin A1c Ferritin AST ALT Alkaline Phosphatase Lactate Dehydrogenase C-Reactive Protein Total Protein Albumin Arterial Blood Glucose Coronavirus (PCR) 05/11/21 05/11/21 05/11/21 17:00 17:33 22:03 WBC MCHC RDW Lymph % (Auto) Lymph # (Auto) Baso # (Auto) Seg Neutrophils % Seg Neuts % (Manual) Lymphocytes % (Manual) Seg Neutrophils # Seg Neutrophils # Man Lymphocytes # (Manual) D-Dimer ABG pH POC ABG pO2 ABG pO2 ABG HCO3 ABG O2 Saturation ABG Base Excess ABG Oxyhemoglobin ABG Sodium ABG Chloride ABG Glucose Oxyhemoglobin Carboxyhemoglobin Sodium 135 L Potassium Chloride 97.3 L Carbon Dioxide BUN 21 H Creatinine 0.3 L Glucose 133 H POC Glucose 140 H 282 H Hemoglobin A1c Ferritin AST ALT 60 H Alkaline Phosphatase Lactate Dehydrogenase C-Reactive Protein Total Protein Albumin 3.1 L Arterial Blood Glucose Coronavirus (PCR) 05/12/21 05/12/21 05/12/21 04:05 04:05 04:05 WBC MCHC RDW 18.4 H Lymph % (Auto) Lymph # (Auto) Baso # (Auto) Seg Neutrophils % Seg Neuts % (Manual) 94.0 H Lymphocytes % (Manual) 4.0 L Seg Neutrophils # Seg Neutrophils # Man Lymphocytes # (Manual) 0.3 L D-Dimer ABG pH POC ABG pO2 ABG pO2 ABG HCO3 ABG O2 Saturation ABG Base Excess ABG Oxyhemoglobin ABG Sodium ABG Chloride ABG Glucose Oxyhemoglobin Carboxyhemoglobin Sodium 136 L Potassium Chloride Carbon Dioxide BUN 18 H Creatinine 0.2 L Glucose 142 H POC Glucose Hemoglobin A1c Ferritin 350.7 H AST ALT Alkaline Phosphatase Lactate Dehydrogenase 546 H C-Reactive Protein Total Protein 6.1 L Albumin 3.0 L Arterial Blood Glucose Coronavirus (PCR) 05/12/21 05/12/21 05/12/21 05:11 11:17 16:27 WBC MCHC RDW Lymph % (Auto) Lymph # (Auto) Baso # (Auto) Seg Neutrophils % Seg Neuts % (Manual) Lymphocytes % (Manual) Seg Neutrophils # Seg Neutrophils # Man Lymphocytes # (Manual) D-Dimer ABG pH POC ABG pO2 ABG pO2 ABG HCO3 ABG O2 Saturation ABG Base Excess ABG Oxyhemoglobin ABG Sodium ABG Chloride ABG Glucose Oxyhemoglobin Carboxyhemoglobin Sodium Potassium Chloride Carbon Dioxide BUN Creatinine Glucose POC Glucose 152 H 190 H 261 H Hemoglobin A1c Ferritin AST ALT Alkaline Phosphatase Lactate Dehydrogenase C-Reactive Protein Total Protein Albumin Arterial Blood Glucose Coronavirus (PCR) 05/12/21 05/13/21 05/13/21 20:55 11:08 21:41 WBC MCHC RDW Lymph % (Auto) Lymph # (Auto) Baso # (Auto) Seg Neutrophils % Seg Neuts % (Manual) Lymphocytes % (Manual) Seg Neutrophils # Seg Neutrophils # Man Lymphocytes # (Manual) D-Dimer ABG pH POC ABG pO2 ABG pO2 ABG HCO3 ABG O2 Saturation ABG Base Excess ABG Oxyhemoglobin ABG Sodium ABG Chloride ABG Glucose Oxyhemoglobin Carboxyhemoglobin Sodium Potassium Chloride Carbon Dioxide BUN Creatinine Glucose POC Glucose 231 H 106 H 174 H Hemoglobin A1c Ferritin AST ALT Alkaline Phosphatase Lactate Dehydrogenase C-Reactive Protein Total Protein Albumin Arterial Blood Glucose Coronavirus (PCR) 05/14/21 05/14/21 05/14/21 00:53 02:23 06:06 WBC MCHC RDW Lymph % (Auto) Lymph # (Auto) Baso # (Auto) Seg Neutrophils % Seg Neuts % (Manual) Lymphocytes % (Manual) Seg Neutrophils # Seg Neutrophils # Man Lymphocytes # (Manual) D-Dimer ABG pH POC ABG pO2 ABG pO2 130.3 H ABG HCO3 30.6 H ABG O2 Saturation ABG Base Excess 4.9 H ABG Oxyhemoglobin ABG Sodium ABG Chloride ABG Glucose Oxyhemoglobin Carboxyhemoglobin Sodium Potassium Chloride Carbon Dioxide BUN Creatinine Glucose POC Glucose 229 H 119 H Hemoglobin A1c Ferritin AST ALT Alkaline Phosphatase Lactate Dehydrogenase C-Reactive Protein Total Protein Albumin Arterial Blood Glucose Coronavirus (PCR) 05/14/21 05/14/21 05/14/21 07:13 07:13 07:13 WBC MCHC RDW Lymph % (Auto) Lymph # (Auto) Baso # (Auto) Seg Neutrophils % Seg Neuts % (Manual) Lymphocytes % (Manual) Seg Neutrophils # Seg Neutrophils # Man Lymphocytes # (Manual) D-Dimer 712.80 H ABG pH POC ABG pO2 ABG pO2 ABG HCO3 ABG O2 Saturation ABG Base Excess ABG Oxyhemoglobin ABG Sodium ABG Chloride ABG Glucose Oxyhemoglobin Carboxyhemoglobin Sodium 133 L Potassium Chloride 95.5 L Carbon Dioxide 32 H BUN Creatinine 0.2 L Glucose 137 H POC Glucose Hemoglobin A1c Ferritin 283.5 H AST ALT 63 H Alkaline Phosphatase Lactate Dehydrogenase 563 H C-Reactive Protein Total Protein 6.1 L Albumin 3.0 L Arterial Blood Glucose Coronavirus (PCR)
[2021-05-14] MEDS: LORazepam 2 MG/ML VIAL IV SCH ×2 (12:33→18:05)
[2021-05-14] MEDS: FAMOTIDINE 20 MG TAB PO SCH ×2 (14:23→22:28)
[2021-05-14] MEDS: ASCORBIC ACID 500 MG TAB PO SCH (14:24)
[2021-05-14] MEDS: ZINC SULFATE 220 MG CAP PO SCH ×2 (14:27→22:28)
[2021-05-14] MEDS: CHOLECALCIFEROL (VIT D3) 1000 UNIT (25 mcg) TAB PO SCH (14:27)
[2021-05-14] MEDS: ACETAMINOPHEN 325 MG TAB PO PRN (14:35)
[2021-05-14] MEDS: ONDANSETRON 4 MG/2 ML INJ IV PRN (14:35)
--- NOTE | 2021-05-14 15:29 | Progress Note ---
Assessment and Plan 50-year-old female past medical history obesity, GERD, hyperlipidemia brought to the hospital due to shortness of breath, fevers, malaise, typical Covid symptoms for approximate 1 week prior to admission and was progressively worse since on set. She is found to have saturations of 86% on presentation. Afebrile since admission with a white count 7.5. Covid test was positive positive along with normal renal function and normal procalcitonin. Chest x-ray: Bilateral pneumonia. Patient initiated on Covid protocol, ID and pulmonary care following Assessment and plan: --Acute hypoxic resp failure due to covid19 -S/p BiPAP, now discontinued -Currently on high per nasal cannula at flow rate 40 L/min along with nonrebreather -See RT notes for titration -Albuterol as needed -Pulmonary hygiene -Pulmonology following CTA chest ordered, patient could not tolerate --covid19 pna; sepsis; -zinc/vitC/D -methylpred 125 mg every 8; wean as appropriate -Infectious disease consulted, -S/p Actemra and remdesivir -Trend temperature and WBC curve -Follow culture data --Oral candidiasis Nystatin solution ordered. -- hyponatremia -Last 24 hours -125 -Trend BMP -Replace electrolytes as needed -Monitor intake and output -- coagulopathy of covid; on AC -Subcu heparin -Trend CBC -Transfuse for hemoglobin less than 7 -Bilateral lower extremity Doppler ultrasounds negative for DVT ; no CTA or VQ scan to rule out PE -- hyperglycemia; obesity -glargine HS -SSI AC/HS -Avoid hypoglycemia -- risk for protein gisella malnutrition given inc metabolic demand with resp insufficiency -TPN earlier in hospital admission due to BiPAP however now patient is tolerating p.o. -Patient on a GI soft diet with aspiration precautions -Nutrition following -Bowel regimen: Colace, senna, MiraLAX -PPI --Anxiety Likely due to severe hypoxia -Follows commands and RAY -PRN pain and anxiety meds -Patient is Latvian-speaking but understands Belarusian --viral conjunctivitis right eye: -Right eye- s/p 5 d course of cipro drops. suspect viral conjunctivitis. lubricating eye drops. supportive management. --Septic shock -S/p pressors now discontinued -MAP goal 65 -Pressure monitor per protocol --DVT prophylaxis, per hospital protocol Hospital course to date: 04/17: Patient seen and examined, still uncomfortable with Hypoxic respiratory failure and on oxygen, will continue to steroids therapy, start patient on Remdesivir, ID consulted, Pulmonary consult placed. 04/18: Patient seen and examined, she is currently being changed to High flow NC due to worsening HYPOXIA, will transfer to IMCU, Pulmonary and ID following. Will also give a dose of Lasix today. Monitor Inflammatory markers. 04/19: Patient seen and examined still on high flow due to hypoxia. Appears a bit more comfortable today than yesterday. Cough has decreased in frequency. We will continue high dose Dexameathasone to complete 10 days. continue on Remdesivir 200 mg IV q day x 1 followed by 100 mg IV q day x 4 days -Obtain q48-72h inflammatory markers - ferritin, Ddimer, CRP, LDH Will also give lasix daily for the next 3 days and monitor renal function. Family updated. Continue prone positioning as tolerated 04/20: Patient has some desaturation episodes yesterday was placed on BiPAP. Discussed with ICU team for bed availability for patient to be transferred up. Continue prone position as tolerated. 04/21: Patient remains with profound hypoxia secondary to COVID pneumonia. -Continue steroids -Continue remedesir -S/P Actmera 04/22: Patient remains on steroids and remdesivir. ABG shows persistent hypoxia. We will continue current management additional trial of Lasix for the next few days to see if any improvement. Monitor inflammatory markers as needed. Prognosis is guarded remains on high flow 04/23; patient was treated with remdesivir and Actemra. Continue steroid. Patient's prognosis is guarded. 04/24; patient is on steroid. Patient is currently on BiPAP. Prognosis is guarded. Pulmonary is following. Patient was given Lasix and Ativan. 04/25; continue steroid. Patient was on 40 L of high flow oxygen with saturation was 88%. Pulmonary is following. Prognosis is guarded. Patient was given lasix and ativan. 04/26; patient is on BiPAP and Precedex. Prognosis is guarded. 04/27; patient is on BiPAP and Precedex. Patient will finish steroid today and will start on Solu-Medrol tomorrow. Prognosis is guarded. Blood pressure is better today. Hold Lasix. 04/28 patient is on 100 Fio2 via BIPAP. moderately dyspneic, pulmonary note reviewed, lab results reviewed 04/29 no acute events- see systems review above 04/30 no acute events overnight - on airvo today- TPN started -see systems review above 05-01 no acute events overnight- tolerating airvo- see systems review above 05-02 no acute events overnight; tolerating airvo this AM- see systems review above 05/03: Patient has shown remarkable improvement, weaned down to 3 L and satting 95%. Will attempt to walk test today in anticipation for discharge tomorrow. Discussed with PT team to walk the patient today also. 05/04: Patient appears to have had a decline he was down to 3 L satting 95% with anticipation for discharge today but desatted down to 85% on room air and only 88% on 5 L he is now back at 8 L. I encourage incentive spirometer. While he is on Xarelto and has completed the severe steroids which was subsequently changed to Solu-Medrol I will go ahead and order a CTA to make sure that there is not a failure of Xarelto. We will continue to wean as tolerated discussed with nursing staff at bedside. 05/05/21 Patient is on 40 L of oxygen with 80% FiO2. Patient is encouraged to turn to the side more frequently. Patient is denied any shortness of breath and coughing. No other complaints. Follow the CT scan of the chest. Status post remdesivir and Actemra.Solu-Medrol 40 mg IV every 8 hours. Continue current management. Pulmonary follow-up. 05/06: Patient remains on high flow nasal cannula but states that she feels slightly better with the help of translation from her cousin Aspen. Patient is still awaiting a bed on the floor. Patient diet is being tolerated now so we will stop TPN will be stopped tonight. 05/07/2021: Patient remains on 40 L/min oxygen at 90% FiO2. Attempt made for CTA chest to rule out pulmonary embolism however patient desatted while at CT. Study was aborted, will reattempt again tomorrow. will follow along with renetta bertrand. Discussed/updated patient and patient's daughter over phone regarding any active clinical issues. Patient only complaint is oral pain from oral candidiasis noted on exam. Nystatin oral solution ordered. Daughter also voiced concern over patient eye drops which she stated that patient needed to restart from home. However she did not remember name of drops. advised daughter to call our hospital with drop name and dosing and we will restart. 05/08/2021: Started anticoagulation with Lovenox yesterday. Awaiting CTA chest completion. Will attempt to de-escalate oxygen as patient tolerates 05/09/2021: Continues to have high O2 requirements. CTA chest aborted due to patient not being able to tolerate transport to and from scanner. Will follow pulmonology recommendations 05/10/2021: Steroids increased yesterday to 125 mg every 8 hour. Continuing full dose anticoagulation. Respiratory status still remains challenging as it is difficult to wean patient off of hifnc. Minimal improvement compared to last few days. Plan to prone patient today. Otherwise: Some improvement in eye symptoms compared to yesterday. Will order more lubricating eye drops 05/11/2021: Still requires high flow nasal cannula, FiO2 de-escalated to 85%.. Encourage continued proning, patient care team aware. Continue with steroids, anticoagulation, antibiotics. 05/12/2021: High flow nasal cannula remains at flow rate 35 L/min and FiO2 of 85%. Patient appears more comfortable today. Started insulin regimen due to hyperglycemia likely multifactorial in the setting of underlying diabetes and high-dose steroids. Continue to encourage patient to prone. Discussed with pulmonology regarding patient underlying anxiety. We both agreed that low-dose BuSpar might be beneficial for the patient. 05/13/2020: hypoxic resp distress overnight. cpap ordered. Current settings on encounter 17 at 100% FIO2. Advised care (RN, RT, PT) team to continue to aggressively work with patient as far as proning. Patient can sit at side of bed and rest on bedside tray w/ pillow in "Rodin's thinker pose". continue high dose steroids, PRN ativan for anxiety, Buspar noted in pulm recs. 05/14/21: Patient remains on 100% O2 with high flow along with nonrebreather. Follow inflammatory markers, wean FiO2 as tolerated, guarded prognosis. Subjective Date of service: 05/14/21 Principal diagnosis: Covid-19 Interval history: Patient seen and examined. Medical records and medication list reviewed. No acute event overnight noted by the RN. Patient remains on high flow O2 along with nonrebreather. Patient is tolerating diet. Discussed plan of care at bedside with patient. Objective - Exam Narrative Exam: Limited physical exam due to COVID-19 pandemic to minimize transmission of the disease and to preserve PPE. Vital reviewed and stable. GENERAL: well-developed well-nourished lying on bed appeared to be in no discomfort. HEENT: Normocephalic. Atraumatic. Right eye congestion NECK: Supple. CHEST/LUNGS: breathing on high flow O2 with nonrebreather HEART/CARDIOVASCULAR: Heart rate stable on telemetry ABDOMEN: Visibly not distended SKIN: There is no rash NEURO: No focal motor deficit. Follows command. MUSCULOSKELETAL: No joint effusion EXTRIMITY: No swelling, no cyanosis or clubbing. PSYCH: Cooperative. - Constitutional Vitals: Vital Signs - 12hr 05/14/21 05/14/21 05/14/21 04:31 07:40 09:14 Temperature 97.8 F Pulse Rate 56 L Respiratory 22 Rate Blood Pressure 104/58 O2 Sat by Pulse 100 94 97 Oximetry 05/14/21 12:43 Temperature Pulse Rate Respiratory Rate Blood Pressure O2 Sat by Pulse 95 Oximetry - Labs CBC & Chem 7: 05/17/21 06:20 05/17/21 06:20 Labs: Abnormal lab results 05/13/21 05/14/21 05/14/21 Range/Units 21:41 00:53 02:23 D-Dimer (0-234) ng/mlDDU ABG pO2 130.3 H (80.0-90.0) mm Hg ABG HCO3 30.6 H (20.0-26.0) mmol/L ABG Base Excess 4.9 H (-2.0-3.0) mmol/L Sodium (137-145) mmol/L Chloride (98-107) mmol/L Carbon Dioxide (22-30) mmol/L Creatinine (0.6-1.2) mg/dL Glucose (65-100) mg/dL POC Glucose 174 H 229 H (70-105) mg/dL Ferritin (10.0-200.0) ng/mL ALT (7-56) units/L Lactate Dehydrogenase (91-180) units/L Total Protein (6.3-8.2) g/dL Albumin (3.9-5) g/dL 05/14/21 05/14/21 05/14/21 Range/Units 06:06 07:13 07:13 D-Dimer 712.80 H (0-234) ng/mlDDU ABG pO2 (80.0-90.0) mm Hg ABG HCO3 (20.0-26.0) mmol/L ABG Base Excess (-2.0-3.0) mmol/L Sodium 133 L (137-145) mmol/L Chloride 95.5 L (98-107) mmol/L Carbon Dioxide 32 H (22-30) mmol/L Creatinine 0.2 L (0.6-1.2) mg/dL Glucose 137 H (65-100) mg/dL POC Glucose 119 H (70-105) mg/dL Ferritin (10.0-200.0) ng/mL ALT 63 H (7-56) units/L Lactate Dehydrogenase 563 H (91-180) units/L Total Protein 6.1 L (6.3-8.2) g/dL Albumin 3.0 L (3.9-5) g/dL 05/14/21 05/14/21 Range/Units 07:13 12:21 D-Dimer (0-234) ng/mlDDU ABG pO2 (80.0-90.0) mm Hg ABG HCO3 (20.0-26.0) mmol/L ABG Base Excess (-2.0-3.0) mmol/L Sodium (137-145) mmol/L Chloride (98-107) mmol/L Carbon Dioxide (22-30) mmol/L Creatinine (0.6-1.2) mg/dL Glucose (65-100) mg/dL POC Glucose 143 H (70-105) mg/dL Ferritin 283.5 H (10.0-200.0) ng/mL ALT (7-56) units/L Lactate Dehydrogenase (91-180) units/L Total Protein (6.3-8.2) g/dL Albumin (3.9-5) g/dL
[2021-05-14] MEDS: SENNOSIDES 8.6 MG TAB PO SCH (22:28)
[2021-05-14] MEDS: HYPROMELLOSE 0.5% OPHTH SOLN 15 ML OU PRN (22:30)
[2021-05-15] MEDS: LORazepam 2 MG/ML VIAL IV SCH ×4 (00:41→18:03)
[2021-05-15] MEDS: INSULIN LISPRO 100 UNIT/ML SUB-Q SCH ×3 (00:41→12:33)
[2021-05-15] MEDS: INSULIN REGULAR, HUMAN 100 UNITS/1 ML SUB-Q SCH ×4 (00:42→18:18)
[2021-05-15] MEDS: ENOXAPARIN 80 MG/0.8 ML INJ SUB-Q SCH ×2 (05:58→18:02)
[2021-05-15] MEDS: methylPREDNISolone Sod Succinate 125 MG/2 ML INJ IV SCH ×3 (05:58→21:38)
[2021-05-15] MEDS: MINERAL OIL/PETROLATUM, WHITE OPHTH OINT 3.5 GM OU SCH ×3 (06:00→21:46)
[2021-05-15] MEDS: NYSTATIN 500,000 UNIT/5 ML ORAL LIQD PO SCH ×4 (09:31→21:38)
[2021-05-15] MEDS: CHOLECALCIFEROL (VIT D3) 1000 UNIT (25 mcg) TAB PO SCH (09:31)
[2021-05-15] MEDS: FAMOTIDINE 20 MG TAB PO SCH ×2 (09:31→21:38)
[2021-05-15] MEDS: POLYETHYLENE GLYCOL 3350 17 GM POWDER PO SCH (09:32)
[2021-05-15] MEDS: ZINC SULFATE 220 MG CAP PO SCH ×2 (09:32→21:38)
[2021-05-15] MEDS: DOCUSATE SODIUM 100 MG CAP PO SCH ×2 (09:32→21:38)
[2021-05-15] MEDS: ASCORBIC ACID 500 MG TAB PO SCH (09:32)
[2021-05-15] MEDS: INSULIN GLARGINE 100 UNITS/ML SUB-Q SCH ×2 (12:32→21:41)
--- NOTE | 2021-05-15 15:17 | Progress Note ---
Assessment and Plan 50 y/o female with acute respiratory failure secondary to COVID19 pneumonia. 05/15/21: Not sure if MAR is accurate but may have only gotten one dose of scheduled anixolytic therapy. Continue proning as tolerated, and wean FiO2 and flow for sats >88%. Prognosi remains very very guarded to poor. 05/14/21: Will discontinue the buspar and make the ativan scheduled but will do q6 as oppose to q4 and attempt to leave parameters for nursing when not to give. If anxiety could be controlled, feel that patient could be weaned further. She has no funding so she is not a candidate for LTACH. Prone if possible. Guarded prognosis. This is her 28 day. 05/13/21: Ordered buspar 10 BID to start with to help with anxiety. Please continue to wean FiO2 as tolerated. Will remind nurse that there is PRN ativan available. Continue higher doses of steroids. Prone if able. 05/12/21: Patient may need something longer acting for anxiety. Per chart has not gotten any ativan in days. Would be ok with either buspar or low dose klonopin bid. COntinue higher doses of steroids as patient seems to be responding. Prone if possible. 05/11/21: Continue high doses of steroids and continue to wean for sats >88%. Please encourage proning. 05/10/21: Will continue this dose of steroid at least through the weekend and assess for improvement. will speak with RT about aggressive weaning. Full dose anticoagulation continues. Very very guarded to poor prognosis. 05/09/21: Going to consider increasing steroids to 125q8, maybe as early as tomorrow. continue full dose anticoagulation. 05/08/21: Continue anticoagulation and steroids. Prone if possible. Anxiety control. No objection to CTA if this can happen. Very very guarded prognosis. 05/07/21: Spoke with IMS, not opposed to full dose anticoagulation. If patient goes back on NRB HFNC combo may need to consider restarting PPN again. Encourage proning. Guarded prognosis. 05/06/21: Continue to wean FiO2 and flow for sats >88%. Tolerating diet now so will stop PPN. Continue anxiety control. Continue IV steroids. Would not object to transfer to [facility] floor if bed available. Not sure why she was titrated back up to 100% from 85 as all sats documented in the RT's notes were acceptable. Same for under vital signs as well. 05/03/21: Set back last night from yesterday. Continue bipap therapy for now and attempt HFNC maybe later this afternoon. Continue to use PRN ativan but may need to schedule as she likely took off mask from anxiety. Continue IV steroids. Hold on transfer to COVID Floor. 05/02/21: Continue to wean FiO2 as tolerated for sats >88%. Will continue bipap at night. Patient has no funding so not a candidate for LTACH. Given that she has been stable and not requiring the combo of HFNC and NRB, will consider moving to COVID floor. 05/01/21: Continue to wean FiO2 for sats >88%. A sat of 90 is more than acceptable and oxygen should not be increased for this unless patient desats and remains at a sat lower than 88. Bipap at night to give some form of relief and HFNC during the day. Currently on just this alone which is improvement. Ok with daily diuresis but must monitor renal function and BP closely. She was over diuresed last week and we ended up giving fluid back. Prognosis remains guarded. 04/30/21: Will start CLinimix today for nutritional support, without electrolytes. Check labs in am. Prone if able. Continue precedx for anxiety. Very very guarded prognosis. Attempting our best to not intubate. 04/29/21: Continue precedex. Continue IV solumedrol. Prone if able. Guarded prognosis. 04/28/21: Continue Precedex. Picc team attempting to place line now. Stable on Bipap. Ordered steroids IV solumedrol to start today. Prognosis remains guarded, still at very high risk for intubation. 04/27/21: Hypotension improving/improved. Hold on any further lasix dosing. Continue precedex to help with anxeity. later today please attempt HFNC with NRB if needed. Attempt to feed if possible. Steroids end today, please order solumedrol 40q8 to start tomorrow (04/28/21). guarded prognosis. 04/26/21: Hypotension today, most likely from precedex use and diuresis that I did the last several days. Will bolus again today. Consider midodrine if BP does not respond. 04/25/21: Lasix again today. Keep PRN ativan for now. Hold on precedex for now. Guarded prognosis. Labs ordered for tomorrow. 04/24/21: Lasix today. Will also start patient on low dose PRN ativan. If this does not help will then try precedex. Guarded prognosis. 04/23/21: Prone as tolerated. No lasix today. Continue decadron. Guarded prognosis. High risk for intubation and high mortality with intubation. 04/19/21: Prone as tolerated during the day and sleep prone at night. Continue IV remdesivir and steroids. Did get actemra. Guarded prognosis. 1. Daily net negative state 2. Prone if possible 3. IV remdesivir. 4. Should be a candidate for Actemra 5. IV steroids 6. Guarded Prognosis Subjective Date of service: 05/15/21 Principal diagnosis: Covid-19 Interval history: Patient did prone some this am. Back on NRB and HFNC combo Objective Vital Signs - 12hr 05/15/21 05/15/21 05/15/21 05:04 08:00 10:00 Temperature 97.7 F Pulse Rate 64 Respiratory 20 Rate Blood Pressure 98/56 O2 Sat by Pulse 97 91 94 Oximetry 05/15/21 13:28 Temperature Pulse Rate Respiratory Rate Blood Pressure O2 Sat by Pulse 91 Oximetry Constitutional: no acute distress, alert Eyes: non-icteric ENT: oropharynx moist Neck: supple Effort: normal Ascultation: Bilateral: diminished breath sounds Cardiovascular: regular rate and rhythm Gastrointestinal: normoactive bowel sounds, soft, non-tender, non-distended Integumentary: normal Extremities: no cyanosis, no edema, pink and warm Neurologic: normal mental status, non-focal exam, pupils equal and round, CN II- XII normal Psychiatric: mood appropriate, affect normal CBC and BMP: 05/12/21 04:05 05/14/21 07:13 ABG, PT/INR, D-dimer: ABG ABG pH 7.403 pH Units (7.350-7.450) 05/14/21 02:23 POC ABG pCO2 45.4 mmHg (32.0-48.0) 05/03/21 04:49 ABG pCO2 50.2 mm Hg 05/14/21 02:23 POC ABG pO2 65.3 mmHg (83-108) L 05/03/21 04:49 ABG pO2 130.3 mm Hg (80.0-90.0) H 05/14/21 02:23 POC ABG HCO3 18.5 05/03/21 04:49 ABG O2 Saturation 98.5 % (95.0-99.0) 05/14/21 02:23 PT/INR, D-dimer D-Dimer 712.80 ng/mlDDU (0-234) H 05/14/21 07:13 Abnormal lab findings: Abnormal Labs 04/16/21 04/16/21 04/16/21 11:42 11:42 11:42 WBC MCHC RDW 16.1 H Lymph % (Auto) 7.8 L Lymph # (Auto) 0.8 L Baso # (Auto) Seg Neutrophils % 87.7 H Seg Neuts % (Manual) Lymphocytes % (Manual) Seg Neutrophils # 8.5 H Seg Neutrophils # Man Lymphocytes # (Manual) D-Dimer 338.70 H ABG pH POC ABG pO2 ABG pO2 ABG HCO3 ABG O2 Saturation ABG Base Excess ABG Oxyhemoglobin ABG Sodium ABG Chloride ABG Glucose Oxyhemoglobin Carboxyhemoglobin Sodium Potassium Chloride Carbon Dioxide BUN Creatinine Glucose 194 H POC Glucose Hemoglobin A1c Ferritin AST ALT Alkaline Phosphatase Lactate Dehydrogenase C-Reactive Protein Total Protein 8.4 H Albumin 3.8 L Arterial Blood Glucose Coronavirus (PCR) 04/16/21 04/16/21 04/17/21 11:42 11:42 03:50 WBC MCHC RDW 16.0 H Lymph % (Auto) 7.7 L Lymph # (Auto) 0.6 L Baso # (Auto) Seg Neutrophils % 89.8 H Seg Neuts % (Manual) Lymphocytes % (Manual) Seg Neutrophils # Seg Neutrophils # Man Lymphocytes # (Manual) D-Dimer ABG pH POC ABG pO2 ABG pO2 ABG HCO3 ABG O2 Saturation ABG Base Excess ABG Oxyhemoglobin ABG Sodium ABG Chloride ABG Glucose Oxyhemoglobin Carboxyhemoglobin Sodium Potassium Chloride Carbon Dioxide BUN Creatinine Glucose 195 H POC Glucose Hemoglobin A1c Ferritin 254.3 H AST ALT Alkaline Phosphatase Lactate Dehydrogenase 359 H C-Reactive Protein 15.20 H Total Protein Albumin Arterial Blood Glucose Coronavirus (PCR) 04/17/21 04/17/21 04/17/21 03:50 08:26 08:26 WBC MCHC RDW Lymph % (Auto) Lymph # (Auto) Baso # (Auto) Seg Neutrophils % Seg Neuts % (Manual) Lymphocytes % (Manual) Seg Neutrophils # Seg Neutrophils # Man Lymphocytes # (Manual) D-Dimer 262.48 H ABG pH POC ABG pO2 ABG pO2 ABG HCO3 ABG O2 Saturation ABG Base Excess ABG Oxyhemoglobin ABG Sodium ABG Chloride ABG Glucose Oxyhemoglobin Carboxyhemoglobin Sodium Potassium Chloride Carbon Dioxide BUN 20 H Creatinine 0.5 L Glucose 249 H 225 H POC Glucose Hemoglobin A1c Ferritin AST ALT Alkaline Phosphatase Lactate Dehydrogenase 338 H C-Reactive Protein 17.20 H Total Protein Albumin 3.2 L Arterial Blood Glucose Coronavirus (PCR) 04/17/21 04/17/21 04/17/21 08:26 15:04 Unknown WBC MCHC RDW Lymph % (Auto) Lymph # (Auto) Baso # (Auto) Seg Neutrophils % Seg Neuts % (Manual) Lymphocytes % (Manual) Seg Neutrophils # Seg Neutrophils # Man Lymphocytes # (Manual) D-Dimer ABG pH POC ABG pO2 ABG pO2 ABG HCO3 ABG O2 Saturation ABG Base Excess ABG Oxyhemoglobin ABG Sodium ABG Chloride ABG Glucose Oxyhemoglobin Carboxyhemoglobin Sodium Potassium Chloride Carbon Dioxide BUN 20 H Creatinine 0.5 L Glucose 246 H POC Glucose Hemoglobin A1c Ferritin 392.0 H AST ALT Alkaline Phosphatase Lactate Dehydrogenase C-Reactive Protein Total Protein 8.3 H Albumin 3.1 L Arterial Blood Glucose Coronavirus (PCR) Positive A 04/18/21 04/18/21 04/18/21 05:06 05:06 07:36 WBC 11.6 H MCHC RDW 16.1 H Lymph % (Auto) Lymph # (Auto) Baso # (Auto) Seg Neutrophils % Seg Neuts % (Manual) Lymphocytes % (Manual) Seg Neutrophils # Seg Neutrophils # Man Lymphocytes # (Manual) D-Dimer ABG pH POC ABG pO2 ABG pO2 ABG HCO3 ABG O2 Saturation ABG Base Excess ABG Oxyhemoglobin ABG Sodium ABG Chloride ABG Glucose Oxyhemoglobin Carboxyhemoglobin Sodium Potassium 5.2 H Chloride Carbon Dioxide BUN 22 H Creatinine 0.5 L Glucose 315 H POC Glucose Hemoglobin A1c 8.5 H Ferritin AST ALT Alkaline Phosphatase Lactate Dehydrogenase C-Reactive Protein Total Protein Albumin 3.3 L Arterial Blood Glucose Coronavirus (PCR) 04/18/21 04/18/21 04/18/21 11:59 16:43 23:24 WBC MCHC RDW Lymph % (Auto) Lymph # (Auto) Baso # (Auto) Seg Neutrophils % Seg Neuts % (Manual) Lymphocytes % (Manual) Seg Neutrophils # Seg Neutrophils # Man Lymphocytes # (Manual) D-Dimer ABG pH POC ABG pO2 ABG pO2 ABG HCO3 ABG O2 Saturation ABG Base Excess ABG Oxyhemoglobin ABG Sodium ABG Chloride ABG Glucose Oxyhemoglobin Carboxyhemoglobin Sodium Potassium Chloride Carbon Dioxide BUN Creatinine Glucose POC Glucose 284 H 273 H 290 H Hemoglobin A1c Ferritin AST ALT Alkaline Phosphatase Lactate Dehydrogenase C-Reactive Protein Total Protein Albumin Arterial Blood Glucose Coronavirus (PCR) 04/19/21 04/19/21 04/19/21 04:19 04:19 08:10 WBC MCHC RDW 15.7 H Lymph % (Auto) Lymph # (Auto) Baso # (Auto) Seg Neutrophils % Seg Neuts % (Manual) Lymphocytes % (Manual) Seg Neutrophils # Seg Neutrophils # Man Lymphocytes # (Manual) D-Dimer ABG pH POC ABG pO2 ABG pO2 ABG HCO3 ABG O2 Saturation ABG Base Excess ABG Oxyhemoglobin ABG Sodium ABG Chloride ABG Glucose Oxyhemoglobin Carboxyhemoglobin Sodium Potassium Chloride Carbon Dioxide BUN 27 H Creatinine 0.4 L Glucose 184 H POC Glucose 194 H Hemoglobin A1c Ferritin AST ALT Alkaline Phosphatase Lactate Dehydrogenase C-Reactive Protein Total Protein Albumin 3.1 L Arterial Blood Glucose Coronavirus (PCR) 04/19/21 04/19/21 04/19/21 11:38 16:25 22:04 WBC MCHC RDW Lymph % (Auto) Lymph # (Auto) Baso # (Auto) Seg Neutrophils % Seg Neuts % (Manual) Lymphocytes % (Manual) Seg Neutrophils # Seg Neutrophils # Man Lymphocytes # (Manual) D-Dimer ABG pH POC ABG pO2 ABG pO2 ABG HCO3 ABG O2 Saturation ABG Base Excess ABG Oxyhemoglobin ABG Sodium ABG Chloride ABG Glucose Oxyhemoglobin Carboxyhemoglobin Sodium Potassium Chloride Carbon Dioxide BUN Creatinine Glucose POC Glucose 224 H 297 H 251 H Hemoglobin A1c Ferritin AST ALT Alkaline Phosphatase Lactate Dehydrogenase C-Reactive Protein Total Protein Albumin Arterial Blood Glucose Coronavirus (PCR) 04/20/21 04/20/21 04/20/21 05:28 08:43 16:21 WBC MCHC RDW Lymph % (Auto) Lymph # (Auto) Baso # (Auto) Seg Neutrophils % Seg Neuts % (Manual) Lymphocytes % (Manual) Seg Neutrophils # Seg Neutrophils # Man Lymphocytes # (Manual) D-Dimer ABG pH POC ABG pO2 ABG pO2 ABG HCO3 ABG O2 Saturation ABG Base Excess ABG Oxyhemoglobin ABG Sodium ABG Chloride ABG Glucose Oxyhemoglobin Carboxyhemoglobin Sodium Potassium Chloride Carbon Dioxide BUN 27 H Creatinine Glucose 192 H POC Glucose 173 H 253 H Hemoglobin A1c Ferritin AST ALT Alkaline Phosphatase Lactate Dehydrogenase C-Reactive Protein Total Protein Albumin 3.0 L Arterial Blood Glucose Coronavirus (PCR) 04/21/21 04/21/21 04/21/21 07:58 12:05 16:08 WBC MCHC RDW Lymph % (Auto) Lymph # (Auto) Baso # (Auto) Seg Neutrophils % Seg Neuts % (Manual) Lymphocytes % (Manual) Seg Neutrophils # Seg Neutrophils # Man Lymphocytes # (Manual) D-Dimer ABG pH POC ABG pO2 ABG pO2 ABG HCO3 ABG O2 Saturation ABG Base Excess ABG Oxyhemoglobin ABG Sodium ABG Chloride ABG Glucose Oxyhemoglobin Carboxyhemoglobin Sodium Potassium Chloride Carbon Dioxide BUN Creatinine Glucose POC Glucose 140 H 252 H 214 H Hemoglobin A1c Ferritin AST ALT Alkaline Phosphatase Lactate Dehydrogenase C-Reactive Protein Total Protein Albumin Arterial Blood Glucose Coronavirus (PCR) 04/21/21 04/22/21 04/22/21 21:42 08:37 12:01 WBC MCHC RDW Lymph % (Auto) Lymph # (Auto) Baso # (Auto) Seg Neutrophils % Seg Neuts % (Manual) Lymphocytes % (Manual) Seg Neutrophils # Seg Neutrophils # Man Lymphocytes # (Manual) D-Dimer ABG pH 7.457 H POC ABG pO2 49.4 L ABG pO2 ABG HCO3 ABG O2 Saturation ABG Base Excess ABG Oxyhemoglobin 85.6 L ABG Sodium ABG Chloride ABG Glucose 121 H Oxyhemoglobin Carboxyhemoglobin 0.3 L Sodium Potassium Chloride Carbon Dioxide BUN Creatinine Glucose POC Glucose 162 H 227 H Hemoglobin A1c Ferritin AST ALT Alkaline Phosphatase Lactate Dehydrogenase C-Reactive Protein Total Protein Albumin Arterial Blood Glucose 121 H Coronavirus (PCR) 08/09/21 08/09/21 08/10/21 16:26 22:23 04:52 WBC MCHC RDW 15.7 H Lymph % (Auto) Lymph # (Auto) Baso # (Auto) Seg Neutrophils % Seg Neuts % (Manual) Lymphocytes % (Manual) Seg Neutrophils # Seg Neutrophils # Man Lymphocytes # (Manual) D-Dimer ABG pH POC ABG pO2 ABG pO2 ABG HCO3 ABG O2 Saturation ABG Base Excess ABG Oxyhemoglobin ABG Sodium ABG Chloride ABG Glucose Oxyhemoglobin Carboxyhemoglobin Sodium Potassium Chloride Carbon Dioxide BUN Creatinine Glucose POC Glucose 200 H 136 H Hemoglobin A1c Ferritin AST ALT Alkaline Phosphatase Lactate Dehydrogenase C-Reactive Protein Total Protein Albumin Arterial Blood Glucose Coronavirus (PCR) 04/23/21 04/23/21 04/23/21 04:52 12:06 17:41 WBC MCHC RDW Lymph % (Auto) Lymph # (Auto) Baso # (Auto) Seg Neutrophils % Seg Neuts % (Manual) Lymphocytes % (Manual) Seg Neutrophils # Seg Neutrophils # Man Lymphocytes # (Manual) D-Dimer ABG pH POC ABG pO2 ABG pO2 ABG HCO3 ABG O2 Saturation ABG Base Excess ABG Oxyhemoglobin ABG Sodium ABG Chloride ABG Glucose Oxyhemoglobin Carboxyhemoglobin Sodium 136 L Potassium Chloride 97.7 L Carbon Dioxide BUN 23 H Creatinine Glucose 101 H POC Glucose 202 H 169 H Hemoglobin A1c Ferritin AST 46 H ALT Alkaline Phosphatase Lactate Dehydrogenase C-Reactive Protein Total Protein Albumin 3.3 L Arterial Blood Glucose Coronavirus (PCR) 04/23/21 04/24/21 04/24/21 23:08 05:17 08:38 WBC MCHC RDW Lymph % (Auto) Lymph # (Auto) Baso # (Auto) Seg Neutrophils % Seg Neuts % (Manual) Lymphocytes % (Manual) Seg Neutrophils # Seg Neutrophils # Man Lymphocytes # (Manual) D-Dimer ABG pH POC ABG pO2 ABG pO2 ABG HCO3 ABG O2 Saturation ABG Base Excess ABG Oxyhemoglobin ABG Sodium ABG Chloride ABG Glucose Oxyhemoglobin Carboxyhemoglobin Sodium Potassium Chloride Carbon Dioxide BUN Creatinine Glucose POC Glucose 111 H 108 H 126 H Hemoglobin A1c Ferritin AST ALT Alkaline Phosphatase Lactate Dehydrogenase C-Reactive Protein Total Protein Albumin Arterial Blood Glucose Coronavirus (PCR) 04/24/21 04/24/21 04/24/21 11:54 17:57 21:23 WBC MCHC RDW Lymph % (Auto) Lymph # (Auto) Baso # (Auto) Seg Neutrophils % Seg Neuts % (Manual) Lymphocytes % (Manual) Seg Neutrophils # Seg Neutrophils # Man Lymphocytes # (Manual) D-Dimer ABG pH POC ABG pO2 ABG pO2 ABG HCO3 ABG O2 Saturation ABG Base Excess ABG Oxyhemoglobin ABG Sodium ABG Chloride ABG Glucose Oxyhemoglobin Carboxyhemoglobin Sodium Potassium Chloride Carbon Dioxide BUN Creatinine Glucose POC Glucose 147 H 177 H 138 H Hemoglobin A1c Ferritin AST ALT Alkaline Phosphatase Lactate Dehydrogenase C-Reactive Protein Total Protein Albumin Arterial Blood Glucose Coronavirus (PCR) 04/25/21 04/25/21 04/25/21 07:06 11:23 15:43 WBC MCHC RDW Lymph % (Auto) Lymph # (Auto) Baso # (Auto) Seg Neutrophils % Seg Neuts % (Manual) Lymphocytes % (Manual) Seg Neutrophils # Seg Neutrophils # Man Lymphocytes # (Manual) D-Dimer ABG pH POC ABG pO2 ABG pO2 ABG HCO3 ABG O2 Saturation ABG Base Excess ABG Oxyhemoglobin ABG Sodium ABG Chloride ABG Glucose Oxyhemoglobin Carboxyhemoglobin Sodium Potassium Chloride Carbon Dioxide BUN Creatinine Glucose POC Glucose 147 H 169 H 227 H Hemoglobin A1c Ferritin AST ALT Alkaline Phosphatase Lactate Dehydrogenase C-Reactive Protein Total Protein Albumin Arterial Blood Glucose Coronavirus (PCR) 04/25/21 04/26/21 04/26/21 21:22 02:45 05:15 WBC MCHC RDW Lymph % (Auto) Lymph # (Auto) Baso # (Auto) Seg Neutrophils % Seg Neuts % (Manual) Lymphocytes % (Manual) Seg Neutrophils # Seg Neutrophils # Man Lymphocytes # (Manual) D-Dimer ABG pH POC ABG pO2 70.7 L ABG pO2 ABG HCO3 ABG O2 Saturation ABG Base Excess ABG Oxyhemoglobin 93.0 L ABG Sodium 132.7 L ABG Chloride ABG Glucose 115 H Oxyhemoglobin Carboxyhemoglobin Sodium Potassium Chloride 95.8 L Carbon Dioxide 32 H BUN 20 H Creatinine Glucose 102 H POC Glucose 196 H Hemoglobin A1c Ferritin AST ALT Alkaline Phosphatase Lactate Dehydrogenase C-Reactive Protein Total Protein Albumin Arterial Blood Glucose 115 H Coronavirus (PCR) 04/26/21 04/26/21 04/26/21 11:49 16:09 21:07 WBC MCHC RDW Lymph % (Auto) Lymph # (Auto) Baso # (Auto) Seg Neutrophils % Seg Neuts % (Manual) Lymphocytes % (Manual) Seg Neutrophils # Seg Neutrophils # Man Lymphocytes # (Manual) D-Dimer ABG pH POC ABG pO2 ABG pO2 ABG HCO3 ABG O2 Saturation ABG Base Excess ABG Oxyhemoglobin ABG Sodium ABG Chloride ABG Glucose Oxyhemoglobin Carboxyhemoglobin Sodium Potassium Chloride Carbon Dioxide BUN Creatinine Glucose POC Glucose 114 H 188 H 136 H Hemoglobin A1c Ferritin AST ALT Alkaline Phosphatase Lactate Dehydrogenase C-Reactive Protein Total Protein Albumin Arterial Blood Glucose Coronavirus (PCR) 04/27/21 04/27/21 04/28/21 17:34 22:12 08:26 WBC MCHC RDW Lymph % (Auto) Lymph # (Auto) Baso # (Auto) Seg Neutrophils % Seg Neuts % (Manual) Lymphocytes % (Manual) Seg Neutrophils # Seg Neutrophils # Man Lymphocytes # (Manual) D-Dimer ABG pH POC ABG pO2 ABG pO2 ABG HCO3 ABG O2 Saturation ABG Base Excess ABG Oxyhemoglobin ABG Sodium ABG Chloride ABG Glucose Oxyhemoglobin Carboxyhemoglobin Sodium Potassium Chloride Carbon Dioxide BUN Creatinine Glucose POC Glucose 128 H 159 H 69 L Hemoglobin A1c Ferritin AST ALT Alkaline Phosphatase Lactate Dehydrogenase C-Reactive Protein Total Protein Albumin Arterial Blood Glucose Coronavirus (PCR) 04/28/21 04/28/21 04/29/21 12:22 21:11 06:05 WBC MCHC RDW Lymph % (Auto) Lymph # (Auto) Baso # (Auto) Seg Neutrophils % Seg Neuts % (Manual) Lymphocytes % (Manual) Seg Neutrophils # Seg Neutrophils # Man Lymphocytes # (Manual) D-Dimer ABG pH POC ABG pO2 ABG pO2 ABG HCO3 ABG O2 Saturation ABG Base Excess ABG Oxyhemoglobin ABG Sodium ABG Chloride ABG Glucose Oxyhemoglobin Carboxyhemoglobin Sodium 132 L Potassium Chloride 94.4 L Carbon Dioxide BUN Creatinine 0.2 L D Glucose 140 H POC Glucose 141 H 171 H Hemoglobin A1c Ferritin AST ALT Alkaline Phosphatase Lactate Dehydrogenase C-Reactive Protein Total Protein Albumin Arterial Blood Glucose Coronavirus (PCR) 04/29/21 04/29/21 04/29/21 06:05 07:24 11:36 WBC MCHC 35 H RDW 15.9 H Lymph % (Auto) Lymph # (Auto) Baso # (Auto) Seg Neutrophils % Seg Neuts % (Manual) Lymphocytes % (Manual) Seg Neutrophils # Seg Neutrophils # Man Lymphocytes # (Manual) D-Dimer ABG pH POC ABG pO2 ABG pO2 ABG HCO3 ABG O2 Saturation ABG Base Excess ABG Oxyhemoglobin ABG Sodium ABG Chloride ABG Glucose Oxyhemoglobin Carboxyhemoglobin Sodium Potassium Chloride Carbon Dioxide BUN Creatinine Glucose POC Glucose 141 H 220 H Hemoglobin A1c Ferritin AST ALT Alkaline Phosphatase Lactate Dehydrogenase C-Reactive Protein Total Protein Albumin Arterial Blood Glucose Coronavirus (PCR) 04/29/21 04/29/21 04/29/21 14:23 15:30 17:06 WBC MCHC RDW Lymph % (Auto) Lymph # (Auto) Baso # (Auto) Seg Neutrophils % Seg Neuts % (Manual) Lymphocytes % (Manual) Seg Neutrophils # Seg Neutrophils # Man Lymphocytes # (Manual) D-Dimer ABG pH POC ABG pO2 ABG pO2 52.6 L ABG HCO3 ABG O2 Saturation 86.4 L ABG Base Excess ABG Oxyhemoglobin ABG Sodium ABG Chloride ABG Glucose Oxyhemoglobin 84.6 L Carboxyhemoglobin Sodium Potassium Chloride Carbon Dioxide BUN Creatinine Glucose POC Glucose 173 H 158 H Hemoglobin A1c Ferritin AST ALT Alkaline Phosphatase Lactate Dehydrogenase C-Reactive Protein Total Protein Albumin Arterial Blood Glucose Coronavirus (PCR) 04/29/21 04/30/21 04/30/21 21:27 07:16 08:00 WBC MCHC RDW 16.1 H Lymph % (Auto) Lymph # (Auto) Baso # (Auto) Seg Neutrophils % Seg Neuts % (Manual) Lymphocytes % (Manual) Seg Neutrophils # Seg Neutrophils # Man Lymphocytes # (Manual) D-Dimer ABG pH POC ABG pO2 ABG pO2 ABG HCO3 ABG O2 Saturation ABG Base Excess ABG Oxyhemoglobin ABG Sodium ABG Chloride ABG Glucose Oxyhemoglobin Carboxyhemoglobin Sodium Potassium Chloride Carbon Dioxide BUN Creatinine Glucose POC Glucose 244 H 175 H Hemoglobin A1c Ferritin AST ALT Alkaline Phosphatase Lactate Dehydrogenase C-Reactive Protein Total Protein Albumin Arterial Blood Glucose Coronavirus (PCR) 04/30/21 04/30/21 04/30/21 08:00 08:00 11:03 WBC MCHC RDW Lymph % (Auto) Lymph # (Auto) Baso # (Auto) Seg Neutrophils % Seg Neuts % (Manual) Lymphocytes % (Manual) Seg Neutrophils # Seg Neutrophils # Man Lymphocytes # (Manual) D-Dimer 1796.87 H ABG pH POC ABG pO2 ABG pO2 ABG HCO3 ABG O2 Saturation ABG Base Excess ABG Oxyhemoglobin ABG Sodium ABG Chloride ABG Glucose Oxyhemoglobin Carboxyhemoglobin Sodium 135 L Potassium Chloride 96.3 L Carbon Dioxide BUN Creatinine 0.2 L Glucose 153 H POC Glucose 183 H Hemoglobin A1c Ferritin AST 41 H ALT 76 H Alkaline Phosphatase 160 H Lactate Dehydrogenase 522 H C-Reactive Protein Total Protein 6.1 L Albumin 3.1 L Arterial Blood Glucose Coronavirus (PCR) 04/30/21 04/30/21 05/01/21 17:04 22:17 05:39 WBC MCHC RDW Lymph % (Auto) Lymph # (Auto) Baso # (Auto) Seg Neutrophils % Seg Neuts % (Manual) Lymphocytes % (Manual) Seg Neutrophils # Seg Neutrophils # Man Lymphocytes # (Manual) D-Dimer ABG pH POC ABG pO2 ABG pO2 ABG HCO3 ABG O2 Saturation ABG Base Excess ABG Oxyhemoglobin ABG Sodium ABG Chloride ABG Glucose Oxyhemoglobin Carboxyhemoglobin Sodium 133 L Potassium Chloride 92.1 L Carbon Dioxide BUN 24 H Creatinine 0.4 L D Glucose 269 H POC Glucose 167 H 208 H Hemoglobin A1c Ferritin AST ALT 66 H Alkaline Phosphatase 142 H Lactate Dehydrogenase C-Reactive Protein Total Protein Albumin 3.2 L Arterial Blood Glucose Coronavirus (PCR) 05/01/21 05/01/21 05/01/21 05:39 05:39 07:45 WBC MCHC RDW 16.0 H Lymph % (Auto) Lymph # (Auto) Baso # (Auto) Seg Neutrophils % Seg Neuts % (Manual) Lymphocytes % (Manual) Seg Neutrophils # Seg Neutrophils # Man Lymphocytes # (Manual) D-Dimer 3984.95 H ABG pH POC ABG pO2 ABG pO2 ABG HCO3 ABG O2 Saturation ABG Base Excess ABG Oxyhemoglobin ABG Sodium ABG Chloride ABG Glucose Oxyhemoglobin Carboxyhemoglobin Sodium Potassium Chloride Carbon Dioxide BUN Creatinine Glucose POC Glucose 229 H Hemoglobin A1c Ferritin AST ALT Alkaline Phosphatase Lactate Dehydrogenase C-Reactive Protein Total Protein Albumin Arterial Blood Glucose Coronavirus (PCR) 05/01/21 05/01/21 05/01/21 12:10 15:46 21:06 WBC MCHC RDW Lymph % (Auto) Lymph # (Auto) Baso # (Auto) Seg Neutrophils % Seg Neuts % (Manual) Lymphocytes % (Manual) Seg Neutrophils # Seg Neutrophils # Man Lymphocytes # (Manual) D-Dimer ABG pH POC ABG pO2 ABG pO2 ABG HCO3 ABG O2 Saturation ABG Base Excess ABG Oxyhemoglobin ABG Sodium ABG Chloride ABG Glucose Oxyhemoglobin Carboxyhemoglobin Sodium Potassium Chloride Carbon Dioxide BUN Creatinine Glucose POC Glucose 296 H 279 H 232 H Hemoglobin A1c Ferritin AST ALT Alkaline Phosphatase Lactate Dehydrogenase C-Reactive Protein Total Protein Albumin Arterial Blood Glucose Coronavirus (PCR) 05/02/21 05/02/21 05/02/21 04:55 04:55 04:55 WBC MCHC RDW 16.1 H Lymph % (Auto) Lymph # (Auto) Baso # (Auto) Seg Neutrophils % Seg Neuts % (Manual) Lymphocytes % (Manual) Seg Neutrophils # Seg Neutrophils # Man Lymphocytes # (Manual) D-Dimer 1401.08 H ABG pH POC ABG pO2 ABG pO2 ABG HCO3 ABG O2 Saturation ABG Base Excess ABG Oxyhemoglobin ABG Sodium ABG Chloride ABG Glucose Oxyhemoglobin Carboxyhemoglobin Sodium 131 L Potassium Chloride 95.5 L Carbon Dioxide BUN 20 H Creatinine 0.3 L Glucose 288 H POC Glucose Hemoglobin A1c Ferritin AST ALT Alkaline Phosphatase Lactate Dehydrogenase C-Reactive Protein Total Protein 6.0 L Albumin 3.1 L Arterial Blood Glucose Coronavirus (PCR) 05/02/21 05/02/21 05/02/21 07:53 11:45 15:25 WBC MCHC RDW Lymph % (Auto) Lymph # (Auto) Baso # (Auto) Seg Neutrophils % Seg Neuts % (Manual) Lymphocytes % (Manual) Seg Neutrophils # Seg Neutrophils # Man Lymphocytes # (Manual) D-Dimer ABG pH POC ABG pO2 ABG pO2 ABG HCO3 ABG O2 Saturation ABG Base Excess ABG Oxyhemoglobin ABG Sodium ABG Chloride ABG Glucose Oxyhemoglobin Carboxyhemoglobin Sodium Potassium Chloride Carbon Dioxide BUN Creatinine Glucose POC Glucose 180 H 228 H 275 H Hemoglobin A1c Ferritin AST ALT Alkaline Phosphatase Lactate Dehydrogenase C-Reactive Protein Total Protein Albumin Arterial Blood Glucose Coronavirus (PCR) 05/02/21 05/03/21 05/03/21 22:56 04:30 04:49 WBC MCHC RDW Lymph % (Auto) Lymph # (Auto) Baso # (Auto) Seg Neutrophils % Seg Neuts % (Manual) Lymphocytes % (Manual) Seg Neutrophils # Seg Neutrophils # Man Lymphocytes # (Manual) D-Dimer ABG pH 7.229 L POC ABG pO2 65.3 L ABG pO2 ABG HCO3 ABG O2 Saturation ABG Base Excess ABG Oxyhemoglobin 87.8 L ABG Sodium 133.0 L ABG Chloride 97.0 L ABG Glucose 403 H Oxyhemoglobin Carboxyhemoglobin Sodium 130 L Potassium Chloride 94.9 L Carbon Dioxide BUN 20 H Creatinine 0.5 L D Glucose 359 H POC Glucose 293 H Hemoglobin A1c Ferritin AST 54 H ALT 75 H Alkaline Phosphatase 138 H Lactate Dehydrogenase C-Reactive Protein Total Protein Albumin 3.6 L Arterial Blood Glucose 403 H Coronavirus (PCR) 05/03/21 05/03/21 05/03/21 05:27 11:26 17:57 WBC MCHC RDW Lymph % (Auto) Lymph # (Auto) Baso # (Auto) Seg Neutrophils % Seg Neuts % (Manual) Lymphocytes % (Manual) Seg Neutrophils # Seg Neutrophils # Man Lymphocytes # (Manual) D-Dimer ABG pH POC ABG pO2 ABG pO2 ABG HCO3 ABG O2 Saturation ABG Base Excess ABG Oxyhemoglobin ABG Sodium ABG Chloride ABG Glucose Oxyhemoglobin Carboxyhemoglobin Sodium Potassium Chloride Carbon Dioxide BUN Creatinine Glucose POC Glucose 361 H 297 H 226 H Hemoglobin A1c Ferritin AST ALT Alkaline Phosphatase Lactate Dehydrogenase C-Reactive Protein Total Protein Albumin Arterial Blood Glucose Coronavirus (PCR) 05/03/21 05/04/21 05/04/21 23:12 05:12 07:30 WBC MCHC RDW Lymph % (Auto) Lymph # (Auto) Baso # (Auto) Seg Neutrophils % Seg Neuts % (Manual) Lymphocytes % (Manual) Seg Neutrophils # Seg Neutrophils # Man Lymphocytes # (Manual) D-Dimer ABG pH POC ABG pO2 ABG pO2 ABG HCO3 ABG O2 Saturation ABG Base Excess ABG Oxyhemoglobin ABG Sodium ABG Chloride ABG Glucose Oxyhemoglobin Carboxyhemoglobin Sodium Potassium Chloride Carbon Dioxide BUN Creatinine Glucose POC Glucose 282 H 285 H 254 H Hemoglobin A1c Ferritin AST ALT Alkaline Phosphatase Lactate Dehydrogenase C-Reactive Protein Total Protein Albumin Arterial Blood Glucose Coronavirus (PCR) 05/04/21 05/04/21 05/04/21 08:58 11:45 16:07 WBC MCHC RDW Lymph % (Auto) Lymph # (Auto) Baso # (Auto) Seg Neutrophils % Seg Neuts % (Manual) Lymphocytes % (Manual) Seg Neutrophils # Seg Neutrophils # Man Lymphocytes # (Manual) D-Dimer ABG pH POC ABG pO2 ABG pO2 ABG HCO3 ABG O2 Saturation ABG Base Excess ABG Oxyhemoglobin ABG Sodium ABG Chloride ABG Glucose Oxyhemoglobin Carboxyhemoglobin Sodium 134 L Potassium Chloride Carbon Dioxide BUN 20 H Creatinine 0.3 L Glucose 267 H POC Glucose 244 H 297 H Hemoglobin A1c Ferritin AST ALT Alkaline Phosphatase Lactate Dehydrogenase C-Reactive Protein Total Protein 6.0 L Albumin 3.2 L Arterial Blood Glucose Coronavirus (PCR) 05/04/21 05/05/21 05/05/21 23:32 05:00 05:13 WBC MCHC RDW Lymph % (Auto) Lymph # (Auto) Baso # (Auto) Seg Neutrophils % Seg Neuts % (Manual) Lymphocytes % (Manual) Seg Neutrophils # Seg Neutrophils # Man Lymphocytes # (Manual) D-Dimer ABG pH POC ABG pO2 ABG pO2 ABG HCO3 ABG O2 Saturation ABG Base Excess ABG Oxyhemoglobin ABG Sodium ABG Chloride ABG Glucose Oxyhemoglobin Carboxyhemoglobin Sodium 132 L Potassium Chloride 96.4 L Carbon Dioxide BUN 22 H Creatinine 0.3 L Glucose 228 H POC Glucose 154 H 260 H Hemoglobin A1c Ferritin AST ALT 67 H Alkaline Phosphatase Lactate Dehydrogenase C-Reactive Protein Total Protein 6.1 L Albumin 3.2 L Arterial Blood Glucose Coronavirus (PCR) 05/05/21 05/05/21 05/05/21 11:32 17:49 23:07 WBC MCHC RDW Lymph % (Auto) Lymph # (Auto) Baso # (Auto) Seg Neutrophils % Seg Neuts % (Manual) Lymphocytes % (Manual) Seg Neutrophils # Seg Neutrophils # Man Lymphocytes # (Manual) D-Dimer ABG pH POC ABG pO2 ABG pO2 ABG HCO3 ABG O2 Saturation ABG Base Excess ABG Oxyhemoglobin ABG Sodium ABG Chloride ABG Glucose Oxyhemoglobin Carboxyhemoglobin Sodium Potassium Chloride Carbon Dioxide BUN Creatinine Glucose POC Glucose 279 H 308 H 213 H Hemoglobin A1c Ferritin AST ALT Alkaline Phosphatase Lactate Dehydrogenase C-Reactive Protein Total Protein Albumin Arterial Blood Glucose Coronavirus (PCR) 05/06/21 05/06/21 05/06/21 05:00 05:00 05:20 WBC MCHC RDW 16.8 H Lymph % (Auto) Lymph # (Auto) Baso # (Auto) Seg Neutrophils % Seg Neuts % (Manual) 99.0 H Lymphocytes % (Manual) Seg Neutrophils # Seg Neutrophils # Man 10.9 H Lymphocytes # (Manual) 0.0 L D-Dimer ABG pH POC ABG pO2 ABG pO2 ABG HCO3 ABG O2 Saturation ABG Base Excess ABG Oxyhemoglobin ABG Sodium ABG Chloride ABG Glucose Oxyhemoglobin Carboxyhemoglobin Sodium 133 L Potassium Chloride Carbon Dioxide BUN 21 H Creatinine 0.3 L Glucose 259 H POC Glucose 308 H Hemoglobin A1c Ferritin AST ALT Alkaline Phosphatase Lactate Dehydrogenase C-Reactive Protein Total Protein Albumin 3.2 L Arterial Blood Glucose Coronavirus (PCR) 05/06/21 05/06/21 05/06/21 11:24 17:54 21:32 WBC MCHC RDW Lymph % (Auto) Lymph # (Auto) Baso # (Auto) Seg Neutrophils % Seg Neuts % (Manual) Lymphocytes % (Manual) Seg Neutrophils # Seg Neutrophils # Man Lymphocytes # (Manual) D-Dimer ABG pH POC ABG pO2 ABG pO2 ABG HCO3 ABG O2 Saturation ABG Base Excess ABG Oxyhemoglobin ABG Sodium ABG Chloride ABG Glucose Oxyhemoglobin Carboxyhemoglobin Sodium Potassium Chloride Carbon Dioxide BUN Creatinine Glucose POC Glucose 262 H 124 H 246 H Hemoglobin A1c Ferritin AST ALT Alkaline Phosphatase Lactate Dehydrogenase C-Reactive Protein Total Protein Albumin Arterial Blood Glucose Coronavirus (PCR) 05/06/21 05/07/21 05/07/21 23:10 04:54 04:54 WBC MCHC RDW Lymph % (Auto) Lymph # (Auto) Baso # (Auto) Seg Neutrophils % Seg Neuts % (Manual) Lymphocytes % (Manual) Seg Neutrophils # Seg Neutrophils # Man Lymphocytes # (Manual) D-Dimer 1609.28 H ABG pH POC ABG pO2 ABG pO2 ABG HCO3 ABG O2 Saturation ABG Base Excess ABG Oxyhemoglobin ABG Sodium ABG Chloride ABG Glucose Oxyhemoglobin Carboxyhemoglobin Sodium 136 L Potassium Chloride Carbon Dioxide BUN 23 H Creatinine 0.3 L Glucose 110 H POC Glucose 249 H Hemoglobin A1c Ferritin AST ALT Alkaline Phosphatase Lactate Dehydrogenase C-Reactive Protein Total Protein 6.2 L Albumin 3.0 L Arterial Blood Glucose Coronavirus (PCR) 05/07/21 05/07/21 05/07/21 04:54 04:54 11:41 WBC MCHC RDW Lymph % (Auto) Lymph # (Auto) Baso # (Auto) Seg Neutrophils % Seg Neuts % (Manual) Lymphocytes % (Manual) Seg Neutrophils # Seg Neutrophils # Man Lymphocytes # (Manual) D-Dimer ABG pH POC ABG pO2 ABG pO2 ABG HCO3 ABG O2 Saturation ABG Base Excess ABG Oxyhemoglobin ABG Sodium ABG Chloride ABG Glucose Oxyhemoglobin Carboxyhemoglobin Sodium Potassium Chloride Carbon Dioxide BUN Creatinine Glucose POC Glucose 118 H Hemoglobin A1c Ferritin 296.1 H AST ALT Alkaline Phosphatase Lactate Dehydrogenase 724 H C-Reactive Protein Total Protein Albumin Arterial Blood Glucose Coronavirus (PCR) 05/07/21 05/07/21 05/08/21 16:43 22:34 06:44 WBC MCHC RDW Lymph % (Auto) Lymph # (Auto) Baso # (Auto) Seg Neutrophils % Seg Neuts % (Manual) Lymphocytes % (Manual) Seg Neutrophils # Seg Neutrophils # Man Lymphocytes # (Manual) D-Dimer ABG pH POC ABG pO2 ABG pO2 ABG HCO3 ABG O2 Saturation ABG Base Excess ABG Oxyhemoglobin ABG Sodium ABG Chloride ABG Glucose Oxyhemoglobin Carboxyhemoglobin Sodium Potassium Chloride Carbon Dioxide BUN Creatinine Glucose POC Glucose 159 H 233 H 235 H Hemoglobin A1c Ferritin AST ALT Alkaline Phosphatase Lactate Dehydrogenase C-Reactive Protein Total Protein Albumin Arterial Blood Glucose Coronavirus (PCR) 05/08/21 05/08/21 05/08/21 07:49 11:56 17:13 WBC MCHC RDW Lymph % (Auto) Lymph # (Auto) Baso # (Auto) Seg Neutrophils % Seg Neuts % (Manual) Lymphocytes % (Manual) Seg Neutrophils # Seg Neutrophils # Man Lymphocytes # (Manual) D-Dimer ABG pH POC ABG pO2 ABG pO2 ABG HCO3 ABG O2 Saturation ABG Base Excess ABG Oxyhemoglobin ABG Sodium ABG Chloride ABG Glucose Oxyhemoglobin Carboxyhemoglobin Sodium Potassium Chloride Carbon Dioxide BUN Creatinine Glucose POC Glucose 219 H 184 H 182 H Hemoglobin A1c Ferritin AST ALT Alkaline Phosphatase Lactate Dehydrogenase C-Reactive Protein Total Protein Albumin Arterial Blood Glucose Coronavirus (PCR) 05/08/21 05/09/21 05/09/21 23:35 05:20 05:20 WBC MCHC RDW Lymph % (Auto) Lymph # (Auto) Baso # (Auto) Seg Neutrophils % Seg Neuts % (Manual) Lymphocytes % (Manual) Seg Neutrophils # Seg Neutrophils # Man Lymphocytes # (Manual) D-Dimer 1003.87 H ABG pH POC ABG pO2 ABG pO2 ABG HCO3 ABG O2 Saturation ABG Base Excess ABG Oxyhemoglobin ABG Sodium ABG Chloride ABG Glucose Oxyhemoglobin Carboxyhemoglobin Sodium Potassium Chloride Carbon Dioxide BUN Creatinine Glucose POC Glucose 198 H Hemoglobin A1c Ferritin 378.7 H AST ALT Alkaline Phosphatase Lactate Dehydrogenase C-Reactive Protein Total Protein Albumin Arterial Blood Glucose Coronavirus (PCR) 05/09/21 05/09/21 05/09/21 05:20 06:04 12:53 WBC MCHC RDW Lymph % (Auto) Lymph # (Auto) Baso # (Auto) Seg Neutrophils % Seg Neuts % (Manual) Lymphocytes % (Manual) Seg Neutrophils # Seg Neutrophils # Man Lymphocytes # (Manual) D-Dimer ABG pH POC ABG pO2 ABG pO2 ABG HCO3 ABG O2 Saturation ABG Base Excess ABG Oxyhemoglobin ABG Sodium ABG Chloride ABG Glucose Oxyhemoglobin Carboxyhemoglobin Sodium Potassium Chloride Carbon Dioxide BUN Creatinine Glucose POC Glucose 159 H 180 H Hemoglobin A1c Ferritin AST ALT Alkaline Phosphatase Lactate Dehydrogenase 558 H C-Reactive Protein 2.40 H Total Protein Albumin Arterial Blood Glucose Coronavirus (PCR) 05/09/21 05/09/21 05/10/21 16:43 21:27 10:18 WBC MCHC RDW Lymph % (Auto) Lymph # (Auto) Baso # (Auto) Seg Neutrophils % Seg Neuts % (Manual) Lymphocytes % (Manual) Seg Neutrophils # Seg Neutrophils # Man Lymphocytes # (Manual) D-Dimer ABG pH POC ABG pO2 ABG pO2 ABG HCO3 ABG O2 Saturation ABG Base Excess ABG Oxyhemoglobin ABG Sodium ABG Chloride ABG Glucose Oxyhemoglobin Carboxyhemoglobin Sodium Potassium Chloride Carbon Dioxide BUN Creatinine Glucose POC Glucose 212 H 285 H 261 H Hemoglobin A1c Ferritin AST ALT Alkaline Phosphatase Lactate Dehydrogenase C-Reactive Protein Total Protein Albumin Arterial Blood Glucose Coronavirus (PCR) 05/10/21 05/10/21 05/11/21 17:58 18:02 00:29 WBC MCHC RDW Lymph % (Auto) Lymph # (Auto) Baso # (Auto) Seg Neutrophils % Seg Neuts % (Manual) Lymphocytes % (Manual) Seg Neutrophils # Seg Neutrophils # Man Lymphocytes # (Manual) D-Dimer ABG pH POC ABG pO2 ABG pO2 ABG HCO3 ABG O2 Saturation ABG Base Excess ABG Oxyhemoglobin ABG Sodium ABG Chloride ABG Glucose Oxyhemoglobin Carboxyhemoglobin Sodium Potassium Chloride Carbon Dioxide BUN Creatinine Glucose POC Glucose 213 H 179 H 149 H Hemoglobin A1c Ferritin AST ALT Alkaline Phosphatase Lactate Dehydrogenase C-Reactive Protein Total Protein Albumin Arterial Blood Glucose Coronavirus (PCR) 05/11/21 05/11/21 05/11/21 05:22 11:32 17:00 WBC 14.9 H MCHC RDW 18.9 H Lymph % (Auto) 4.9 L Lymph # (Auto) 0.7 L Baso # (Auto) 0.2 H Seg Neutrophils % Seg Neuts % (Manual) Lymphocytes % (Manual) Seg Neutrophils # 13.3 H Seg Neutrophils # Man Lymphocytes # (Manual) D-Dimer ABG pH POC ABG pO2 ABG pO2 ABG HCO3 ABG O2 Saturation ABG Base Excess ABG Oxyhemoglobin ABG Sodium ABG Chloride ABG Glucose Oxyhemoglobin Carboxyhemoglobin Sodium Potassium Chloride Carbon Dioxide BUN Creatinine Glucose POC Glucose 162 H 179 H Hemoglobin A1c Ferritin AST ALT Alkaline Phosphatase Lactate Dehydrogenase C-Reactive Protein Total Protein Albumin Arterial Blood Glucose Coronavirus (PCR) 05/11/21 05/11/21 05/11/21 17:00 17:33 22:03 WBC MCHC RDW Lymph % (Auto) Lymph # (Auto) Baso # (Auto) Seg Neutrophils % Seg Neuts % (Manual) Lymphocytes % (Manual) Seg Neutrophils # Seg Neutrophils # Man Lymphocytes # (Manual) D-Dimer ABG pH POC ABG pO2 ABG pO2 ABG HCO3 ABG O2 Saturation ABG Base Excess ABG Oxyhemoglobin ABG Sodium ABG Chloride ABG Glucose Oxyhemoglobin Carboxyhemoglobin Sodium 135 L Potassium Chloride 97.3 L Carbon Dioxide BUN 21 H Creatinine 0.3 L Glucose 133 H POC Glucose 140 H 282 H Hemoglobin A1c Ferritin AST ALT 60 H Alkaline Phosphatase Lactate Dehydrogenase C-Reactive Protein Total Protein Albumin 3.1 L Arterial Blood Glucose Coronavirus (PCR) 05/12/21 05/12/21 05/12/21 04:05 04:05 04:05 WBC MCHC RDW 18.4 H Lymph % (Auto) Lymph # (Auto) Baso # (Auto) Seg Neutrophils % Seg Neuts % (Manual) 94.0 H Lymphocytes % (Manual) 4.0 L Seg Neutrophils # Seg Neutrophils # Man Lymphocytes # (Manual) 0.3 L D-Dimer ABG pH POC ABG pO2 ABG pO2 ABG HCO3 ABG O2 Saturation ABG Base Excess ABG Oxyhemoglobin ABG Sodium ABG Chloride ABG Glucose Oxyhemoglobin Carboxyhemoglobin Sodium 136 L Potassium Chloride Carbon Dioxide BUN 18 H Creatinine 0.2 L Glucose 142 H POC Glucose Hemoglobin A1c Ferritin 350.7 H AST ALT Alkaline Phosphatase Lactate Dehydrogenase 546 H C-Reactive Protein Total Protein 6.1 L Albumin 3.0 L Arterial Blood Glucose Coronavirus (PCR) 05/12/21 05/12/21 05/12/21 05:11 11:17 16:27 WBC MCHC RDW Lymph % (Auto) Lymph # (Auto) Baso # (Auto) Seg Neutrophils % Seg Neuts % (Manual) Lymphocytes % (Manual) Seg Neutrophils # Seg Neutrophils # Man Lymphocytes # (Manual) D-Dimer ABG pH POC ABG pO2 ABG pO2 ABG HCO3 ABG O2 Saturation ABG Base Excess ABG Oxyhemoglobin ABG Sodium ABG Chloride ABG Glucose Oxyhemoglobin Carboxyhemoglobin Sodium Potassium Chloride Carbon Dioxide BUN Creatinine Glucose POC Glucose 152 H 190 H 261 H Hemoglobin A1c Ferritin AST ALT Alkaline Phosphatase Lactate Dehydrogenase C-Reactive Protein Total Protein Albumin Arterial Blood Glucose Coronavirus (PCR) 05/12/21 05/13/21 05/13/21 20:55 11:08 21:41 WBC MCHC RDW Lymph % (Auto) Lymph # (Auto) Baso # (Auto) Seg Neutrophils % Seg Neuts % (Manual) Lymphocytes % (Manual) Seg Neutrophils # Seg Neutrophils # Man Lymphocytes # (Manual) D-Dimer ABG pH POC ABG pO2 ABG pO2 ABG HCO3 ABG O2 Saturation ABG Base Excess ABG Oxyhemoglobin ABG Sodium ABG Chloride ABG Glucose Oxyhemoglobin Carboxyhemoglobin Sodium Potassium Chloride Carbon Dioxide BUN Creatinine Glucose POC Glucose 231 H 106 H 174 H Hemoglobin A1c Ferritin AST ALT Alkaline Phosphatase Lactate Dehydrogenase C-Reactive Protein Total Protein Albumin Arterial Blood Glucose Coronavirus (PCR) 05/14/21 05/14/21 05/14/21 00:53 02:23 06:06 WBC MCHC RDW Lymph % (Auto) Lymph # (Auto) Baso # (Auto) Seg Neutrophils % Seg Neuts % (Manual) Lymphocytes % (Manual) Seg Neutrophils # Seg Neutrophils # Man Lymphocytes # (Manual) D-Dimer ABG pH POC ABG pO2 ABG pO2 130.3 H ABG HCO3 30.6 H ABG O2 Saturation ABG Base Excess 4.9 H ABG Oxyhemoglobin ABG Sodium ABG Chloride ABG Glucose Oxyhemoglobin Carboxyhemoglobin Sodium Potassium Chloride Carbon Dioxide BUN Creatinine Glucose POC Glucose 229 H 119 H Hemoglobin A1c Ferritin AST ALT Alkaline Phosphatase Lactate Dehydrogenase C-Reactive Protein Total Protein Albumin Arterial Blood Glucose Coronavirus (PCR) 05/14/21 05/14/21 05/14/21 07:13 07:13 07:13 WBC MCHC RDW Lymph % (Auto) Lymph # (Auto) Baso # (Auto) Seg Neutrophils % Seg Neuts % (Manual) Lymphocytes % (Manual) Seg Neutrophils # Seg Neutrophils # Man Lymphocytes # (Manual) D-Dimer 712.80 H ABG pH POC ABG pO2 ABG pO2 ABG HCO3 ABG O2 Saturation ABG Base Excess ABG Oxyhemoglobin ABG Sodium ABG Chloride ABG Glucose Oxyhemoglobin Carboxyhemoglobin Sodium 133 L Potassium Chloride 95.5 L Carbon Dioxide 32 H BUN Creatinine 0.2 L Glucose 137 H POC Glucose Hemoglobin A1c Ferritin 283.5 H AST ALT 63 H Alkaline Phosphatase Lactate Dehydrogenase 563 H C-Reactive Protein Total Protein 6.1 L Albumin 3.0 L Arterial Blood Glucose Coronavirus (PCR) 05/14/21 05/14/21 05/14/21 12:21 15:33 21:50 WBC MCHC RDW Lymph % (Auto) Lymph # (Auto) Baso # (Auto) Seg Neutrophils % Seg Neuts % (Manual) Lymphocytes % (Manual) Seg Neutrophils # Seg Neutrophils # Man Lymphocytes # (Manual) D-Dimer ABG pH POC ABG pO2 ABG pO2 ABG HCO3 ABG O2 Saturation ABG Base Excess ABG Oxyhemoglobin ABG Sodium ABG Chloride ABG Glucose Oxyhemoglobin Carboxyhemoglobin Sodium Potassium Chloride Carbon Dioxide BUN Creatinine Glucose POC Glucose 143 H 204 H 202 H Hemoglobin A1c Ferritin AST ALT Alkaline Phosphatase Lactate Dehydrogenase C-Reactive Protein Total Protein Albumin Arterial Blood Glucose Coronavirus (PCR) 05/15/21 05/15/21 05:05 11:12 WBC MCHC RDW Lymph % (Auto) Lymph # (Auto) Baso # (Auto) Seg Neutrophils % Seg Neuts % (Manual) Lymphocytes % (Manual) Seg Neutrophils # Seg Neutrophils # Man Lymphocytes # (Manual) D-Dimer ABG pH POC ABG pO2 ABG pO2 ABG HCO3 ABG O2 Saturation ABG Base Excess ABG Oxyhemoglobin ABG Sodium ABG Chloride ABG Glucose Oxyhemoglobin Carboxyhemoglobin Sodium Potassium Chloride Carbon Dioxide BUN Creatinine Glucose POC Glucose 125 H 201 H Hemoglobin A1c Ferritin AST ALT Alkaline Phosphatase Lactate Dehydrogenase C-Reactive Protein Total Protein Albumin Arterial Blood Glucose Coronavirus (PCR)
--- NOTE | 2021-05-15 15:30 | Progress Note ---
Assessment and Plan 50-year-old female past medical history obesity, GERD, hyperlipidemia brought to the hospital due to shortness of breath, fevers, malaise, typical Covid symptoms for approximate 1 week prior to admission and was progressively worse since on set. She is found to have saturations of 86% on presentation. Afebrile since admission with a white count 7.5. Covid test was positive positive along with normal renal function and normal procalcitonin. Chest x-ray: Bilateral pneumonia. Patient initiated on Covid protocol, ID and pulmonary care following Assessment and plan: --Acute hypoxic resp failure due to covid19 -S/p BiPAP, now discontinued -Currently on high per nasal cannula at flow rate 40 L/min along with nonrebreather -See RT notes for titration -Albuterol as needed -Pulmonary hygiene -Pulmonology following CTA chest ordered, patient could not tolerate --covid19 pna; sepsis; -zinc/vitC/D -methylpred 125 mg every 8; wean as appropriate -Infectious disease consulted, -S/p Actemra and remdesivir -Trend temperature and WBC curve -Follow culture data --Oral candidiasis Nystatin solution ordered. -- hyponatremia -Last 24 hours -125 -Trend BMP -Replace electrolytes as needed -Monitor intake and output -- coagulopathy of covid; on AC -Subcu heparin -Trend CBC -Transfuse for hemoglobin less than 7 -Bilateral lower extremity Doppler ultrasounds negative for DVT ; no CTA or VQ scan to rule out PE -- hyperglycemia; obesity -glargine HS -SSI AC/HS -Avoid hypoglycemia -- risk for protein gisella malnutrition given inc metabolic demand with resp insufficiency -TPN earlier in hospital admission due to BiPAP however now patient is tolerating p.o. -Patient on a GI soft diet with aspiration precautions -Nutrition following -Bowel regimen: Colace, senna, MiraLAX -PPI --Anxiety Likely due to severe hypoxia -Follows commands and RAY -PRN pain and anxiety meds -Patient is Arabic-speaking but understands Spanish --viral conjunctivitis right eye: -Right eye- s/p 5 d course of cipro drops. suspect viral conjunctivitis. lubricating eye drops. supportive management. --Septic shock -S/p pressors now discontinued -MAP goal 65 -Pressure monitor per protocol --DVT prophylaxis, per hospital protocol Hospital course to date: 04/17: Patient seen and examined, still uncomfortable with Hypoxic respiratory failure and on oxygen, will continue to steroids therapy, start patient on Remdesivir, ID consulted, Pulmonary consult placed. 04/18: Patient seen and examined, she is currently being changed to High flow NC due to worsening HYPOXIA, will transfer to IMCU, Pulmonary and ID following. Will also give a dose of Lasix today. Monitor Inflammatory markers. 04/19: Patient seen and examined still on high flow due to hypoxia. Appears a bit more comfortable today than yesterday. Cough has decreased in frequency. We will continue high dose Dexameathasone to complete 10 days. continue on Remdesivir 200 mg IV q day x 1 followed by 100 mg IV q day x 4 days -Obtain q48-72h inflammatory markers - ferritin, Ddimer, CRP, LDH Will also give lasix daily for the next 3 days and monitor renal function. Family updated. Continue prone positioning as tolerated 04/20: Patient has some desaturation episodes yesterday was placed on BiPAP. Discussed with ICU team for bed availability for patient to be transferred up. Continue prone position as tolerated. 04/21: Patient remains with profound hypoxia secondary to COVID pneumonia. -Continue steroids -Continue remedesir -S/P Actmera 04/22: Patient remains on steroids and remdesivir. ABG shows persistent hypoxia. We will continue current management additional trial of Lasix for the next few days to see if any improvement. Monitor inflammatory markers as needed. Prognosis is guarded remains on high flow 04/23; patient was treated with remdesivir and Actemra. Continue steroid. Patient's prognosis is guarded. 04/24; patient is on steroid. Patient is currently on BiPAP. Prognosis is guarded. Pulmonary is following. Patient was given Lasix and Ativan. 04/25; continue steroid. Patient was on 40 L of high flow oxygen with saturation was 88%. Pulmonary is following. Prognosis is guarded. Patient was given lasix and ativan. 04/26; patient is on BiPAP and Precedex. Prognosis is guarded. 04/27; patient is on BiPAP and Precedex. Patient will finish steroid today and will start on Solu-Medrol tomorrow. Prognosis is guarded. Blood pressure is better today. Hold Lasix. 04/28 patient is on 100 Fio2 via BIPAP. moderately dyspneic, pulmonary note reviewed, lab results reviewed 04/29 no acute events- see systems review above 04/30 no acute events overnight - on airvo today- TPN started -see systems review above 05-01 no acute events overnight- tolerating airvo- see systems review above 05-02 no acute events overnight; tolerating airvo this AM- see systems review above 05/03: Patient has shown remarkable improvement, weaned down to 3 L and satting 95%. Will attempt to walk test today in anticipation for discharge tomorrow. Discussed with PT team to walk the patient today also. 05/04: Patient appears to have had a decline he was down to 3 L satting 95% with anticipation for discharge today but desatted down to 85% on room air and only 88% on 5 L he is now back at 8 L. I encourage incentive spirometer. While he is on Xarelto and has completed the severe steroids which was subsequently changed to Solu-Medrol I will go ahead and order a CTA to make sure that there is not a failure of Xarelto. We will continue to wean as tolerated discussed with nursing staff at bedside. 05/05/21 Patient is on 40 L of oxygen with 80% FiO2. Patient is encouraged to turn to the side more frequently. Patient is denied any shortness of breath and coughing. No other complaints. Follow the CT scan of the chest. Status post remdesivir and Actemra.Solu-Medrol 40 mg IV every 8 hours. Continue current management. Pulmonary follow-up. 05/06: Patient remains on high flow nasal cannula but states that she feels slightly better with the help of translation from her cousin Aspen. Patient is still awaiting a bed on the floor. Patient diet is being tolerated now so we will stop TPN will be stopped tonight. 05/07/2021: Patient remains on 40 L/min oxygen at 90% FiO2. Attempt made for CTA chest to rule out pulmonary embolism however patient desatted while at CT. Study was aborted, will reattempt again tomorrow. will follow along with renetta bertrand. Discussed/updated patient and patient's daughter over phone regarding any active clinical issues. Patient only complaint is oral pain from oral candidiasis noted on exam. Nystatin oral solution ordered. Daughter also voiced concern over patient eye drops which she stated that patient needed to restart from home. However she did not remember name of drops. advised daughter to call our hospital with drop name and dosing and we will restart. 05/08/2021: Started anticoagulation with Lovenox yesterday. Awaiting CTA chest completion. Will attempt to de-escalate oxygen as patient tolerates 05/09/2021: Continues to have high O2 requirements. CTA chest aborted due to patient not being able to tolerate transport to and from scanner. Will follow pulmonology recommendations 05/10/2021: Steroids increased yesterday to 125 mg every 8 hour. Continuing full dose anticoagulation. Respiratory status still remains challenging as it is difficult to wean patient off of hifnc. Minimal improvement compared to last few days. Plan to prone patient today. Otherwise: Some improvement in eye symptoms compared to yesterday. Will order more lubricating eye drops 05/11/2021: Still requires high flow nasal cannula, FiO2 de-escalated to 85%.. Encourage continued proning, patient care team aware. Continue with steroids, anticoagulation, antibiotics. 05/12/2021: High flow nasal cannula remains at flow rate 35 L/min and FiO2 of 85%. Patient appears more comfortable today. Started insulin regimen due to hyperglycemia likely multifactorial in the setting of underlying diabetes and high-dose steroids. Continue to encourage patient to prone. Discussed with pulmonology regarding patient underlying anxiety. We both agreed that low-dose BuSpar might be beneficial for the patient. 05/13/2020: hypoxic resp distress overnight. cpap ordered. Current settings on encounter 30/04 at 100% FIO2. Advised care (RN, RT, PT) team to continue to aggressively work with patient as far as proning. Patient can sit at side of bed and rest on bedside tray w/ pillow in "Rodin's thinker pose". continue high dose steroids, PRN ativan for anxiety, Buspar noted in pulm recs. 05/14/21: Patient remains on 100% O2 with high flow. Follow inflammatory markers, wean FiO2 as tolerated, guarded prognosis 05/15: Patient on 40 L high flow O2 today-requiring nonrebreather intermittently, continue to follow inflammatory markers and wean off O2 as shaan ated, guarded prognosis. Subjective Date of service: 05/15/21 Principal diagnosis: Covid-19 Interval history: Patient seen and examined. Medical records and medication list reviewed. No acute event overnight noted by the RN. Patient remains on high flow O2 along with nonrebreather. Patient is tolerating diet. Discussed plan of care at bedside with patient. Objective - Exam Narrative Exam: Limited physical exam due to COVID-19 pandemic to minimize transmission of the disease and to preserve PPE. Vital reviewed and stable. GENERAL: well-developed well-nourished lying on bed appeared to be in no discomfort. HEENT: Normocephalic. Atraumatic. Right eye congestion NECK: Supple. CHEST/LUNGS: breathing on high flow O2 with nonrebreather HEART/CARDIOVASCULAR: Heart rate stable on telemetry ABDOMEN: Visibly not distended SKIN: There is no rash NEURO: No focal motor deficit. Follows command. MUSCULOSKELETAL: No joint effusion EXTRIMITY: No swelling, no cyanosis or clubbing. PSYCH: Cooperative. - Constitutional Vitals: Vital Signs - 12hr 05/15/21 05/15/21 05/15/21 05:04 08:00 10:00 Temperature 97.7 F Pulse Rate 64 Respiratory 20 Rate Blood Pressure 98/56 O2 Sat by Pulse 97 91 94 Oximetry 05/15/21 13:28 Temperature Pulse Rate Respiratory Rate Blood Pressure O2 Sat by Pulse 91 Oximetry - Labs CBC & Chem 7: 05/17/21 06:20 05/17/21 06:20 Labs: Abnormal lab results 05/14/21 05/14/21 05/15/21 Range/Units 15:33 21:50 05:05 POC Glucose 204 H 202 H 125 H (70-105) mg/dL 05/15/21 Range/Units 11:12 POC Glucose 201 H (70-105) mg/dL
[2021-05-15] MEDS: ACETAMINOPHEN 325 MG TAB PO PRN (18:23)
[2021-05-15] MEDS: SENNOSIDES 8.6 MG TAB PO SCH (21:38)
[2021-05-16] MEDS: INSULIN LISPRO 100 UNIT/ML SUB-Q SCH ×4 (00:25→18:25)
[2021-05-16] MEDS: LORazepam 2 MG/ML VIAL IV SCH ×4 (00:49→18:14)
[2021-05-16] MEDS: INSULIN REGULAR, HUMAN 100 UNITS/1 ML SUB-Q SCH ×4 (00:49→18:27)
[2021-05-16] MEDS: ACETAMINOPHEN 325 MG TAB PO PRN ×2 (00:51→10:53)
[2021-05-16] MEDS: ENOXAPARIN 80 MG/0.8 ML INJ SUB-Q SCH ×2 (06:42→18:17)
[2021-05-16] MEDS: methylPREDNISolone Sod Succinate 125 MG/2 ML INJ IV SCH ×3 (06:52→22:42)
[2021-05-16] MEDS: MINERAL OIL/PETROLATUM, WHITE OPHTH OINT 3.5 GM OU SCH ×3 (06:52→22:44)
--- NOTE | 2021-05-16 09:51 | Progress Note ---
Assessment and Plan 50 y/o female with acute respiratory failure secondary to COVID19 pneumonia. 05/16/21: Prone if willing. Wean FIO2 if patient will allow. Anxiety control. Prognosis still remains very guarded. 05/15/21: Not sure if MAR is accurate but may have only gotten one dose of scheduled anixolytic therapy. Continue proning as tolerated, and wean FiO2 and flow for sats >88%. Prognosi remains very very guarded to poor. 05/14/21: Will discontinue the buspar and make the ativan scheduled but will do q6 as oppose to q4 and attempt to leave parameters for nursing when not to give. If anxiety could be controlled, feel that patient could be weaned further. She has no funding so she is not a candidate for LTACH. Prone if possible. Guarded prognosis. This is her day. 05/13/21: Ordered buspar 10 BID to start with to help with anxiety. Please continue to wean FiO2 as tolerated. Will remind nurse that there is PRN ativan available. Continue higher doses of steroids. Prone if able. 05/12/21: Patient may need something longer acting for anxiety. Per chart has not gotten any ativan in days. Would be ok with either buspar or low dose klonopin bid. COntinue higher doses of steroids as patient seems to be responding. Prone if possible. 05/11/21: Continue high doses of steroids and continue to wean for sats >88%. Please encourage proning. 05/10/21: Will continue this dose of steroid at least through the weekend and assess for improvement. will speak with RT about aggressive weaning. Full dose anticoagulation continues. Very very guarded to poor prognosis. 05/09/21: Going to consider increasing steroids to 125q8, maybe as early as tomorrow. continue full dose anticoagulation. 05/08/21: Continue anticoagulation and steroids. Prone if possible. Anxiety control. No objection to CTA if this can happen. Very very guarded prognosis. 05/07/21: Spoke with IMS, not opposed to full dose anticoagulation. If patient goes back on NRB HFNC combo may need to consider restarting PPN again. Encourage proning. Guarded prognosis. 05/06/21: Continue to wean FiO2 and flow for sats >88%. Tolerating diet now so will stop PPN. Continue anxiety control. Continue IV steroids. Would not object to transfer to COVID floor if bed available. Not sure why she was titrated back up to 100% from 85 as all sats documented in the RT's notes were acceptable. Same for under vital signs as well. 05/03/21: Set back last night from yesterday. Continue bipap therapy for now and attempt HFNC maybe later this afternoon. Continue to use PRN ativan but may need to schedule as she likely took off mask from anxiety. Continue IV steroids. Hold on transfer to COVID Floor. 05/02/21: Continue to wean FiO2 as tolerated for sats >88%. Will continue bipap at night. Patient has no funding so not a candidate for LTACH. Given that she has been stable and not requiring the combo of HFNC and NRB, will consider moving to COVID floor. 05/01/21: Continue to wean FiO2 for sats >88%. A sat of 90 is more than acceptable and oxygen should not be increased for this unless patient desats and remains at a sat lower than 88. Bipap at night to give some form of relief and HFNC during the day. Currently on just this alone which is improvement. Ok with daily diuresis but must monitor renal function and BP closely. She was over diuresed last week and we ended up giving fluid back. Prognosis remains guarded. 04/30/21: Will start CLinimix today for nutritional support, without electrolytes. Check labs in am. Prone if able. Continue precedx for anxiety. Very very guarded prognosis. Attempting our best to not intubate. 04/29/21: Continue precedex. Continue IV solumedrol. Prone if able. Guarded prognosis. 04/28/21: Continue Precedex. Picc team attempting to place line now. Stable on Bipap. Ordered steroids IV solumedrol to start today. Prognosis remains guarded, still at very high risk for intubation. 04/27/21: Hypotension improving/improved. Hold on any further lasix dosing. Continue precedex to help with anxeity. later today please attempt HFNC with NRB if needed. Attempt to feed if possible. Steroids end today, please order solumedrol 40q8 to start tomorrow (04/28/21). guarded prognosis. 04/26/21: Hypotension today, most likely from precedex use and diuresis that I did the last several days. Will bolus again today. Consider midodrine if BP does not respond. 04/25/21: Lasix again today. Keep PRN ativan for now. Hold on precedex for now. Guarded prognosis. Labs ordered for tomorrow. 04/24/21: Lasix today. Will also start patient on low dose PRN ativan. If this does not help will then try precedex. Guarded prognosis. 04/23/21: Prone as tolerated. No lasix today. Continue decadron. Guarded prognosis. High risk for intubation and high mortality with intubation. 04/19/21: Prone as tolerated during the day and sleep prone at night. Continue IV remdesivir and steroids. Did get actemra. Guarded prognosis. 1. Daily net negative state 2. Prone if possible 3. IV remdesivir. 4. Should be a candidate for Actemra 5. IV steroids 6. Guarded Prognosis Subjective Date of service: 05/16/21 Principal diagnosis: Covid-19 Interval history: No change Objective Vital Signs - 12hr 05/15/21 05/16/21 05/16/21 22:00 00:51 01:51 Temperature Pulse Rate Respiratory 20 20 Rate Blood Pressure O2 Sat by Pulse 94 Oximetry 05/16/21 05/16/21 02:00 05:07 Temperature 98.3 F Pulse Rate 68 Respiratory 22 Rate Blood Pressure 108/68 O2 Sat by Pulse 98 98 Oximetry Constitutional: no acute distress, alert Eyes: non-icteric ENT: oropharynx moist Neck: supple Effort: normal Ascultation: Bilateral: diminished breath sounds Cardiovascular: regular rate and rhythm Gastrointestinal: normoactive bowel sounds, soft, non-tender, non-distended Integumentary: normal Extremities: no cyanosis, no edema, pink and warm Neurologic: normal mental status, non-focal exam, pupils equal and round, CN II- XII normal Psychiatric: mood appropriate, affect normal CBC and BMP: 05/12/21 04:05 05/14/21 07:13 ABG, PT/INR, D-dimer: ABG ABG pH 7.403 pH Units (7.350-7.450) 05/14/21 02:23 POC ABG pCO2 45.4 mmHg (32.0-48.0) 05/03/21 04:49 ABG pCO2 50.2 mm Hg 05/14/21 02:23 POC ABG pO2 65.3 mmHg (83-108) L 05/03/21 04:49 ABG pO2 130.3 mm Hg (80.0-90.0) H 05/14/21 02:23 POC ABG HCO3 18.5 05/03/21 04:49 ABG O2 Saturation 98.5 % (95.0-99.0) 05/14/21 02:23 PT/INR, D-dimer D-Dimer 712.80 ng/mlDDU (0-234) H 05/14/21 07:13 Abnormal lab findings: Abnormal Labs 04/16/21 04/16/21 04/16/21 11:42 11:42 11:42 WBC MCHC RDW 16.1 H Lymph % (Auto) 7.8 L Lymph # (Auto) 0.8 L Baso # (Auto) Seg Neutrophils % 87.7 H Seg Neuts % (Manual) Lymphocytes % (Manual) Seg Neutrophils # 8.5 H Seg Neutrophils # Man Lymphocytes # (Manual) D-Dimer 338.70 H ABG pH POC ABG pO2 ABG pO2 ABG HCO3 ABG O2 Saturation ABG Base Excess ABG Oxyhemoglobin ABG Sodium ABG Chloride ABG Glucose Oxyhemoglobin Carboxyhemoglobin Sodium Potassium Chloride Carbon Dioxide BUN Creatinine Glucose 194 H POC Glucose Hemoglobin A1c Ferritin AST ALT Alkaline Phosphatase Lactate Dehydrogenase C-Reactive Protein Total Protein 8.4 H Albumin 3.8 L Arterial Blood Glucose Coronavirus (PCR) 04/16/21 04/16/21 04/17/21 11:42 11:42 03:50 WBC MCHC RDW 16.0 H Lymph % (Auto) 7.7 L Lymph # (Auto) 0.6 L Baso # (Auto) Seg Neutrophils % 89.8 H Seg Neuts % (Manual) Lymphocytes % (Manual) Seg Neutrophils # Seg Neutrophils # Man Lymphocytes # (Manual) D-Dimer ABG pH POC ABG pO2 ABG pO2 ABG HCO3 ABG O2 Saturation ABG Base Excess ABG Oxyhemoglobin ABG Sodium ABG Chloride ABG Glucose Oxyhemoglobin Carboxyhemoglobin Sodium Potassium Chloride Carbon Dioxide BUN Creatinine Glucose 195 H POC Glucose Hemoglobin A1c Ferritin 254.3 H AST ALT Alkaline Phosphatase Lactate Dehydrogenase 359 H C-Reactive Protein 15.20 H Total Protein Albumin Arterial Blood Glucose Coronavirus (PCR) 04/17/21 04/17/21 04/17/21 03:50 08:26 08:26 WBC MCHC RDW Lymph % (Auto) Lymph # (Auto) Baso # (Auto) Seg Neutrophils % Seg Neuts % (Manual) Lymphocytes % (Manual) Seg Neutrophils # Seg Neutrophils # Man Lymphocytes # (Manual) D-Dimer 262.48 H ABG pH POC ABG pO2 ABG pO2 ABG HCO3 ABG O2 Saturation ABG Base Excess ABG Oxyhemoglobin ABG Sodium ABG Chloride ABG Glucose Oxyhemoglobin Carboxyhemoglobin Sodium Potassium Chloride Carbon Dioxide BUN 20 H Creatinine 0.5 L Glucose 249 H 225 H POC Glucose Hemoglobin A1c Ferritin AST ALT Alkaline Phosphatase Lactate Dehydrogenase 338 H C-Reactive Protein 17.20 H Total Protein Albumin 3.2 L Arterial Blood Glucose Coronavirus (PCR) 04/17/21 04/17/21 04/17/21 08:26 15:04 Unknown WBC MCHC RDW Lymph % (Auto) Lymph # (Auto) Baso # (Auto) Seg Neutrophils % Seg Neuts % (Manual) Lymphocytes % (Manual) Seg Neutrophils # Seg Neutrophils # Man Lymphocytes # (Manual) D-Dimer ABG pH POC ABG pO2 ABG pO2 ABG HCO3 ABG O2 Saturation ABG Base Excess ABG Oxyhemoglobin ABG Sodium ABG Chloride ABG Glucose Oxyhemoglobin Carboxyhemoglobin Sodium Potassium Chloride Carbon Dioxide BUN 20 H Creatinine 0.5 L Glucose 246 H POC Glucose Hemoglobin A1c Ferritin 392.0 H AST ALT Alkaline Phosphatase Lactate Dehydrogenase C-Reactive Protein Total Protein 8.3 H Albumin 3.1 L Arterial Blood Glucose Coronavirus (PCR) Positive A 04/18/21 04/18/21 04/18/21 05:06 05:06 07:36 WBC 11.6 H MCHC RDW 16.1 H Lymph % (Auto) Lymph # (Auto) Baso # (Auto) Seg Neutrophils % Seg Neuts % (Manual) Lymphocytes % (Manual) Seg Neutrophils # Seg Neutrophils # Man Lymphocytes # (Manual) D-Dimer ABG pH POC ABG pO2 ABG pO2 ABG HCO3 ABG O2 Saturation ABG Base Excess ABG Oxyhemoglobin ABG Sodium ABG Chloride ABG Glucose Oxyhemoglobin Carboxyhemoglobin Sodium Potassium 5.2 H Chloride Carbon Dioxide BUN 22 H Creatinine 0.5 L Glucose 315 H POC Glucose Hemoglobin A1c 8.5 H Ferritin AST ALT Alkaline Phosphatase Lactate Dehydrogenase C-Reactive Protein Total Protein Albumin 3.3 L Arterial Blood Glucose Coronavirus (PCR) 04/18/21 04/18/21 04/18/21 11:59 16:43 23:24 WBC MCHC RDW Lymph % (Auto) Lymph # (Auto) Baso # (Auto) Seg Neutrophils % Seg Neuts % (Manual) Lymphocytes % (Manual) Seg Neutrophils # Seg Neutrophils # Man Lymphocytes # (Manual) D-Dimer ABG pH POC ABG pO2 ABG pO2 ABG HCO3 ABG O2 Saturation ABG Base Excess ABG Oxyhemoglobin ABG Sodium ABG Chloride ABG Glucose Oxyhemoglobin Carboxyhemoglobin Sodium Potassium Chloride Carbon Dioxide BUN Creatinine Glucose POC Glucose 284 H 273 H 290 H Hemoglobin A1c Ferritin AST ALT Alkaline Phosphatase Lactate Dehydrogenase C-Reactive Protein Total Protein Albumin Arterial Blood Glucose Coronavirus (PCR) 04/19/21 04/19/21 04/19/21 04:19 04:19 08:10 WBC MCHC RDW 15.7 H Lymph % (Auto) Lymph # (Auto) Baso # (Auto) Seg Neutrophils % Seg Neuts % (Manual) Lymphocytes % (Manual) Seg Neutrophils # Seg Neutrophils # Man Lymphocytes # (Manual) D-Dimer ABG pH POC ABG pO2 ABG pO2 ABG HCO3 ABG O2 Saturation ABG Base Excess ABG Oxyhemoglobin ABG Sodium ABG Chloride ABG Glucose Oxyhemoglobin Carboxyhemoglobin Sodium Potassium Chloride Carbon Dioxide BUN 27 H Creatinine 0.4 L Glucose 184 H POC Glucose 194 H Hemoglobin A1c Ferritin AST ALT Alkaline Phosphatase Lactate Dehydrogenase C-Reactive Protein Total Protein Albumin 3.1 L Arterial Blood Glucose Coronavirus (PCR) 04/19/21 04/19/21 04/19/21 11:38 16:25 22:04 WBC MCHC RDW Lymph % (Auto) Lymph # (Auto) Baso # (Auto) Seg Neutrophils % Seg Neuts % (Manual) Lymphocytes % (Manual) Seg Neutrophils # Seg Neutrophils # Man Lymphocytes # (Manual) D-Dimer ABG pH POC ABG pO2 ABG pO2 ABG HCO3 ABG O2 Saturation ABG Base Excess ABG Oxyhemoglobin ABG Sodium ABG Chloride ABG Glucose Oxyhemoglobin Carboxyhemoglobin Sodium Potassium Chloride Carbon Dioxide BUN Creatinine Glucose POC Glucose 224 H 297 H 251 H Hemoglobin A1c Ferritin AST ALT Alkaline Phosphatase Lactate Dehydrogenase C-Reactive Protein Total Protein Albumin Arterial Blood Glucose Coronavirus (PCR) 04/20/21 04/20/21 04/20/21 05:28 08:43 16:21 WBC MCHC RDW Lymph % (Auto) Lymph # (Auto) Baso # (Auto) Seg Neutrophils % Seg Neuts % (Manual) Lymphocytes % (Manual) Seg Neutrophils # Seg Neutrophils # Man Lymphocytes # (Manual) D-Dimer ABG pH POC ABG pO2 ABG pO2 ABG HCO3 ABG O2 Saturation ABG Base Excess ABG Oxyhemoglobin ABG Sodium ABG Chloride ABG Glucose Oxyhemoglobin Carboxyhemoglobin Sodium Potassium Chloride Carbon Dioxide BUN 27 H Creatinine Glucose 192 H POC Glucose 173 H 253 H Hemoglobin A1c Ferritin AST ALT Alkaline Phosphatase Lactate Dehydrogenase C-Reactive Protein Total Protein Albumin 3.0 L Arterial Blood Glucose Coronavirus (PCR) 04/21/21 04/21/21 04/21/21 07:58 12:05 16:08 WBC MCHC RDW Lymph % (Auto) Lymph # (Auto) Baso # (Auto) Seg Neutrophils % Seg Neuts % (Manual) Lymphocytes % (Manual) Seg Neutrophils # Seg Neutrophils # Man Lymphocytes # (Manual) D-Dimer ABG pH POC ABG pO2 ABG pO2 ABG HCO3 ABG O2 Saturation ABG Base Excess ABG Oxyhemoglobin ABG Sodium ABG Chloride ABG Glucose Oxyhemoglobin Carboxyhemoglobin Sodium Potassium Chloride Carbon Dioxide BUN Creatinine Glucose POC Glucose 140 H 252 H 214 H Hemoglobin A1c Ferritin AST ALT Alkaline Phosphatase Lactate Dehydrogenase C-Reactive Protein Total Protein Albumin Arterial Blood Glucose Coronavirus (PCR) 04/21/21 04/22/21 04/22/21 21:42 08:37 12:01 WBC MCHC RDW Lymph % (Auto) Lymph # (Auto) Baso # (Auto) Seg Neutrophils % Seg Neuts % (Manual) Lymphocytes % (Manual) Seg Neutrophils # Seg Neutrophils # Man Lymphocytes # (Manual) D-Dimer ABG pH 7.457 H POC ABG pO2 49.4 L ABG pO2 ABG HCO3 ABG O2 Saturation ABG Base Excess ABG Oxyhemoglobin 85.6 L ABG Sodium ABG Chloride ABG Glucose 121 H Oxyhemoglobin Carboxyhemoglobin 0.3 L Sodium Potassium Chloride Carbon Dioxide BUN Creatinine Glucose POC Glucose 162 H 227 H Hemoglobin A1c Ferritin AST ALT Alkaline Phosphatase Lactate Dehydrogenase C-Reactive Protein Total Protein Albumin Arterial Blood Glucose 121 H Coronavirus (PCR) 04/22/21 04/22/21 04/23/21 16:26 22:23 04:52 WBC MCHC RDW 15.7 H Lymph % (Auto) Lymph # (Auto) Baso # (Auto) Seg Neutrophils % Seg Neuts % (Manual) Lymphocytes % (Manual) Seg Neutrophils # Seg Neutrophils # Man Lymphocytes # (Manual) D-Dimer ABG pH POC ABG pO2 ABG pO2 ABG HCO3 ABG O2 Saturation ABG Base Excess ABG Oxyhemoglobin ABG Sodium ABG Chloride ABG Glucose Oxyhemoglobin Carboxyhemoglobin Sodium Potassium Chloride Carbon Dioxide BUN Creatinine Glucose POC Glucose 200 H 136 H Hemoglobin A1c Ferritin AST ALT Alkaline Phosphatase Lactate Dehydrogenase C-Reactive Protein Total Protein Albumin Arterial Blood Glucose Coronavirus (PCR) 04/23/21 04/23/21 04/23/21 04:52 12:06 17:41 WBC MCHC RDW Lymph % (Auto) Lymph # (Auto) Baso # (Auto) Seg Neutrophils % Seg Neuts % (Manual) Lymphocytes % (Manual) Seg Neutrophils # Seg Neutrophils # Man Lymphocytes # (Manual) D-Dimer ABG pH POC ABG pO2 ABG pO2 ABG HCO3 ABG O2 Saturation ABG Base Excess ABG Oxyhemoglobin ABG Sodium ABG Chloride ABG Glucose Oxyhemoglobin Carboxyhemoglobin Sodium 136 L Potassium Chloride 97.7 L Carbon Dioxide BUN 23 H Creatinine Glucose 101 H POC Glucose 202 H 169 H Hemoglobin A1c Ferritin AST 46 H ALT Alkaline Phosphatase Lactate Dehydrogenase C-Reactive Protein Total Protein Albumin 3.3 L Arterial Blood Glucose Coronavirus (PCR) 04/23/21 04/24/21 04/24/21 23:08 05:17 08:38 WBC MCHC RDW Lymph % (Auto) Lymph # (Auto) Baso # (Auto) Seg Neutrophils % Seg Neuts % (Manual) Lymphocytes % (Manual) Seg Neutrophils # Seg Neutrophils # Man Lymphocytes # (Manual) D-Dimer ABG pH POC ABG pO2 ABG pO2 ABG HCO3 ABG O2 Saturation ABG Base Excess ABG Oxyhemoglobin ABG Sodium ABG Chloride ABG Glucose Oxyhemoglobin Carboxyhemoglobin Sodium Potassium Chloride Carbon Dioxide BUN Creatinine Glucose POC Glucose 111 H 108 H 126 H Hemoglobin A1c Ferritin AST ALT Alkaline Phosphatase Lactate Dehydrogenase C-Reactive Protein Total Protein Albumin Arterial Blood Glucose Coronavirus (PCR) 04/24/21 04/24/21 04/24/21 11:54 17:57 21:23 WBC MCHC RDW Lymph % (Auto) Lymph # (Auto) Baso # (Auto) Seg Neutrophils % Seg Neuts % (Manual) Lymphocytes % (Manual) Seg Neutrophils # Seg Neutrophils # Man Lymphocytes # (Manual) D-Dimer ABG pH POC ABG pO2 ABG pO2 ABG HCO3 ABG O2 Saturation ABG Base Excess ABG Oxyhemoglobin ABG Sodium ABG Chloride ABG Glucose Oxyhemoglobin Carboxyhemoglobin Sodium Potassium Chloride Carbon Dioxide BUN Creatinine Glucose POC Glucose 147 H 177 H 138 H Hemoglobin A1c Ferritin AST ALT Alkaline Phosphatase Lactate Dehydrogenase C-Reactive Protein Total Protein Albumin Arterial Blood Glucose Coronavirus (PCR) 04/25/21 04/25/21 04/25/21 07:06 11:23 15:43 WBC MCHC RDW Lymph % (Auto) Lymph # (Auto) Baso # (Auto) Seg Neutrophils % Seg Neuts % (Manual) Lymphocytes % (Manual) Seg Neutrophils # Seg Neutrophils # Man Lymphocytes # (Manual) D-Dimer ABG pH POC ABG pO2 ABG pO2 ABG HCO3 ABG O2 Saturation ABG Base Excess ABG Oxyhemoglobin ABG Sodium ABG Chloride ABG Glucose Oxyhemoglobin Carboxyhemoglobin Sodium Potassium Chloride Carbon Dioxide BUN Creatinine Glucose POC Glucose 147 H 169 H 227 H Hemoglobin A1c Ferritin AST ALT Alkaline Phosphatase Lactate Dehydrogenase C-Reactive Protein Total Protein Albumin Arterial Blood Glucose Coronavirus (PCR) 04/25/21 04/26/21 04/26/21 21:22 02:45 05:15 WBC MCHC RDW Lymph % (Auto) Lymph # (Auto) Baso # (Auto) Seg Neutrophils % Seg Neuts % (Manual) Lymphocytes % (Manual) Seg Neutrophils # Seg Neutrophils # Man Lymphocytes # (Manual) D-Dimer ABG pH POC ABG pO2 70.7 L ABG pO2 ABG HCO3 ABG O2 Saturation ABG Base Excess ABG Oxyhemoglobin 93.0 L ABG Sodium 132.7 L ABG Chloride ABG Glucose 115 H Oxyhemoglobin Carboxyhemoglobin Sodium Potassium Chloride 95.8 L Carbon Dioxide 32 H BUN 20 H Creatinine Glucose 102 H POC Glucose 196 H Hemoglobin A1c Ferritin AST ALT Alkaline Phosphatase Lactate Dehydrogenase C-Reactive Protein Total Protein Albumin Arterial Blood Glucose 115 H Coronavirus (PCR) 04/26/21 04/26/21 04/26/21 11:49 16:09 21:07 WBC MCHC RDW Lymph % (Auto) Lymph # (Auto) Baso # (Auto) Seg Neutrophils % Seg Neuts % (Manual) Lymphocytes % (Manual) Seg Neutrophils # Seg Neutrophils # Man Lymphocytes # (Manual) D-Dimer ABG pH POC ABG pO2 ABG pO2 ABG HCO3 ABG O2 Saturation ABG Base Excess ABG Oxyhemoglobin ABG Sodium ABG Chloride ABG Glucose Oxyhemoglobin Carboxyhemoglobin Sodium Potassium Chloride Carbon Dioxide BUN Creatinine Glucose POC Glucose 114 H 188 H 136 H Hemoglobin A1c Ferritin AST ALT Alkaline Phosphatase Lactate Dehydrogenase C-Reactive Protein Total Protein Albumin Arterial Blood Glucose Coronavirus (PCR) 04/27/21 04/27/21 04/28/21 17:34 22:12 08:26 WBC MCHC RDW Lymph % (Auto) Lymph # (Auto) Baso # (Auto) Seg Neutrophils % Seg Neuts % (Manual) Lymphocytes % (Manual) Seg Neutrophils # Seg Neutrophils # Man Lymphocytes # (Manual) D-Dimer ABG pH POC ABG pO2 ABG pO2 ABG HCO3 ABG O2 Saturation ABG Base Excess ABG Oxyhemoglobin ABG Sodium ABG Chloride ABG Glucose Oxyhemoglobin Carboxyhemoglobin Sodium Potassium Chloride Carbon Dioxide BUN Creatinine Glucose POC Glucose 128 H 159 H 69 L Hemoglobin A1c Ferritin AST ALT Alkaline Phosphatase Lactate Dehydrogenase C-Reactive Protein Total Protein Albumin Arterial Blood Glucose Coronavirus (PCR) 04/28/21 04/28/21 04/29/21 12:22 21:11 06:05 WBC MCHC RDW Lymph % (Auto) Lymph # (Auto) Baso # (Auto) Seg Neutrophils % Seg Neuts % (Manual) Lymphocytes % (Manual) Seg Neutrophils # Seg Neutrophils # Man Lymphocytes # (Manual) D-Dimer ABG pH POC ABG pO2 ABG pO2 ABG HCO3 ABG O2 Saturation ABG Base Excess ABG Oxyhemoglobin ABG Sodium ABG Chloride ABG Glucose Oxyhemoglobin Carboxyhemoglobin Sodium 132 L Potassium Chloride 94.4 L Carbon Dioxide BUN Creatinine 0.2 L D Glucose 140 H POC Glucose 141 H 171 H Hemoglobin A1c Ferritin AST ALT Alkaline Phosphatase Lactate Dehydrogenase C-Reactive Protein Total Protein Albumin Arterial Blood Glucose Coronavirus (PCR) 04/29/21 04/29/21 04/29/21 06:05 07:24 11:36 WBC MCHC 35 H RDW 15.9 H Lymph % (Auto) Lymph # (Auto) Baso # (Auto) Seg Neutrophils % Seg Neuts % (Manual) Lymphocytes % (Manual) Seg Neutrophils # Seg Neutrophils # Man Lymphocytes # (Manual) D-Dimer ABG pH POC ABG pO2 ABG pO2 ABG HCO3 ABG O2 Saturation ABG Base Excess ABG Oxyhemoglobin ABG Sodium ABG Chloride ABG Glucose Oxyhemoglobin Carboxyhemoglobin Sodium Potassium Chloride Carbon Dioxide BUN Creatinine Glucose POC Glucose 141 H 220 H Hemoglobin A1c Ferritin AST ALT Alkaline Phosphatase Lactate Dehydrogenase C-Reactive Protein Total Protein Albumin Arterial Blood Glucose Coronavirus (PCR) 04/29/21 04/29/21 04/29/21 14:23 15:30 17:06 WBC MCHC RDW Lymph % (Auto) Lymph # (Auto) Baso # (Auto) Seg Neutrophils % Seg Neuts % (Manual) Lymphocytes % (Manual) Seg Neutrophils # Seg Neutrophils # Man Lymphocytes # (Manual) D-Dimer ABG pH POC ABG pO2 ABG pO2 52.6 L ABG HCO3 ABG O2 Saturation 86.4 L ABG Base Excess ABG Oxyhemoglobin ABG Sodium ABG Chloride ABG Glucose Oxyhemoglobin 84.6 L Carboxyhemoglobin Sodium Potassium Chloride Carbon Dioxide BUN Creatinine Glucose POC Glucose 173 H 158 H Hemoglobin A1c Ferritin AST ALT Alkaline Phosphatase Lactate Dehydrogenase C-Reactive Protein Total Protein Albumin Arterial Blood Glucose Coronavirus (PCR) 04/29/21 04/30/21 04/30/21 21:27 07:16 08:00 WBC MCHC RDW 16.1 H Lymph % (Auto) Lymph # (Auto) Baso # (Auto) Seg Neutrophils % Seg Neuts % (Manual) Lymphocytes % (Manual) Seg Neutrophils # Seg Neutrophils # Man Lymphocytes # (Manual) D-Dimer ABG pH POC ABG pO2 ABG pO2 ABG HCO3 ABG O2 Saturation ABG Base Excess ABG Oxyhemoglobin ABG Sodium ABG Chloride ABG Glucose Oxyhemoglobin Carboxyhemoglobin Sodium Potassium Chloride Carbon Dioxide BUN Creatinine Glucose POC Glucose 244 H 175 H Hemoglobin A1c Ferritin AST ALT Alkaline Phosphatase Lactate Dehydrogenase C-Reactive Protein Total Protein Albumin Arterial Blood Glucose Coronavirus (PCR) 04/30/21 04/30/21 04/30/21 08:00 08:00 11:03 WBC MCHC RDW Lymph % (Auto) Lymph # (Auto) Baso # (Auto) Seg Neutrophils % Seg Neuts % (Manual) Lymphocytes % (Manual) Seg Neutrophils # Seg Neutrophils # Man Lymphocytes # (Manual) D-Dimer 1796.87 H ABG pH POC ABG pO2 ABG pO2 ABG HCO3 ABG O2 Saturation ABG Base Excess ABG Oxyhemoglobin ABG Sodium ABG Chloride ABG Glucose Oxyhemoglobin Carboxyhemoglobin Sodium 135 L Potassium Chloride 96.3 L Carbon Dioxide BUN Creatinine 0.2 L Glucose 153 H POC Glucose 183 H Hemoglobin A1c Ferritin AST 41 H ALT 76 H Alkaline Phosphatase 160 H Lactate Dehydrogenase 522 H C-Reactive Protein Total Protein 6.1 L Albumin 3.1 L Arterial Blood Glucose Coronavirus (PCR) 04/30/21 04/30/21 05/01/21 17:04 22:17 05:39 WBC MCHC RDW Lymph % (Auto) Lymph # (Auto) Baso # (Auto) Seg Neutrophils % Seg Neuts % (Manual) Lymphocytes % (Manual) Seg Neutrophils # Seg Neutrophils # Man Lymphocytes # (Manual) D-Dimer ABG pH POC ABG pO2 ABG pO2 ABG HCO3 ABG O2 Saturation ABG Base Excess ABG Oxyhemoglobin ABG Sodium ABG Chloride ABG Glucose Oxyhemoglobin Carboxyhemoglobin Sodium 133 L Potassium Chloride 92.1 L Carbon Dioxide BUN 24 H Creatinine 0.4 L D Glucose 269 H POC Glucose 167 H 208 H Hemoglobin A1c Ferritin AST ALT 66 H Alkaline Phosphatase 142 H Lactate Dehydrogenase C-Reactive Protein Total Protein Albumin 3.2 L Arterial Blood Glucose Coronavirus (PCR) 05/01/21 05/01/21 05/01/21 05:39 05:39 07:45 WBC MCHC RDW 16.0 H Lymph % (Auto) Lymph # (Auto) Baso # (Auto) Seg Neutrophils % Seg Neuts % (Manual) Lymphocytes % (Manual) Seg Neutrophils # Seg Neutrophils # Man Lymphocytes # (Manual) D-Dimer 3984.95 H ABG pH POC ABG pO2 ABG pO2 ABG HCO3 ABG O2 Saturation ABG Base Excess ABG Oxyhemoglobin ABG Sodium ABG Chloride ABG Glucose Oxyhemoglobin Carboxyhemoglobin Sodium Potassium Chloride Carbon Dioxide BUN Creatinine Glucose POC Glucose 229 H Hemoglobin A1c Ferritin AST ALT Alkaline Phosphatase Lactate Dehydrogenase C-Reactive Protein Total Protein Albumin Arterial Blood Glucose Coronavirus (PCR) 05/01/21 05/01/21 05/01/21 12:10 15:46 21:06 WBC MCHC RDW Lymph % (Auto) Lymph # (Auto) Baso # (Auto) Seg Neutrophils % Seg Neuts % (Manual) Lymphocytes % (Manual) Seg Neutrophils # Seg Neutrophils # Man Lymphocytes # (Manual) D-Dimer ABG pH POC ABG pO2 ABG pO2 ABG HCO3 ABG O2 Saturation ABG Base Excess ABG Oxyhemoglobin ABG Sodium ABG Chloride ABG Glucose Oxyhemoglobin Carboxyhemoglobin Sodium Potassium Chloride Carbon Dioxide BUN Creatinine Glucose POC Glucose 296 H 279 H 232 H Hemoglobin A1c Ferritin AST ALT Alkaline Phosphatase Lactate Dehydrogenase C-Reactive Protein Total Protein Albumin Arterial Blood Glucose Coronavirus (PCR) 05/02/21 05/02/21 05/02/21 04:55 04:55 04:55 WBC MCHC RDW 16.1 H Lymph % (Auto) Lymph # (Auto) Baso # (Auto) Seg Neutrophils % Seg Neuts % (Manual) Lymphocytes % (Manual) Seg Neutrophils # Seg Neutrophils # Man Lymphocytes # (Manual) D-Dimer 1401.08 H ABG pH POC ABG pO2 ABG pO2 ABG HCO3 ABG O2 Saturation ABG Base Excess ABG Oxyhemoglobin ABG Sodium ABG Chloride ABG Glucose Oxyhemoglobin Carboxyhemoglobin Sodium 131 L Potassium Chloride 95.5 L Carbon Dioxide BUN 20 H Creatinine 0.3 L Glucose 288 H POC Glucose Hemoglobin A1c Ferritin AST ALT Alkaline Phosphatase Lactate Dehydrogenase C-Reactive Protein Total Protein 6.0 L Albumin 3.1 L Arterial Blood Glucose Coronavirus (PCR) 05/02/21 05/02/21 05/02/21 07:53 11:45 15:25 WBC MCHC RDW Lymph % (Auto) Lymph # (Auto) Baso # (Auto) Seg Neutrophils % Seg Neuts % (Manual) Lymphocytes % (Manual) Seg Neutrophils # Seg Neutrophils # Man Lymphocytes # (Manual) D-Dimer ABG pH POC ABG pO2 ABG pO2 ABG HCO3 ABG O2 Saturation ABG Base Excess ABG Oxyhemoglobin ABG Sodium ABG Chloride ABG Glucose Oxyhemoglobin Carboxyhemoglobin Sodium Potassium Chloride Carbon Dioxide BUN Creatinine Glucose POC Glucose 180 H 228 H 275 H Hemoglobin A1c Ferritin AST ALT Alkaline Phosphatase Lactate Dehydrogenase C-Reactive Protein Total Protein Albumin Arterial Blood Glucose Coronavirus (PCR) 05/02/21 05/03/21 05/03/21 22:56 04:30 04:49 WBC MCHC RDW Lymph % (Auto) Lymph # (Auto) Baso # (Auto) Seg Neutrophils % Seg Neuts % (Manual) Lymphocytes % (Manual) Seg Neutrophils # Seg Neutrophils # Man Lymphocytes # (Manual) D-Dimer ABG pH 7.229 L POC ABG pO2 65.3 L ABG pO2 ABG HCO3 ABG O2 Saturation ABG Base Excess ABG Oxyhemoglobin 87.8 L ABG Sodium 133.0 L ABG Chloride 97.0 L ABG Glucose 403 H Oxyhemoglobin Carboxyhemoglobin Sodium 130 L Potassium Chloride 94.9 L Carbon Dioxide BUN 20 H Creatinine 0.5 L D Glucose 359 H POC Glucose 293 H Hemoglobin A1c Ferritin AST 54 H ALT 75 H Alkaline Phosphatase 138 H Lactate Dehydrogenase C-Reactive Protein Total Protein Albumin 3.6 L Arterial Blood Glucose 403 H Coronavirus (PCR) 05/03/21 05/03/21 05/03/21 05:27 11:26 17:57 WBC MCHC RDW Lymph % (Auto) Lymph # (Auto) Baso # (Auto) Seg Neutrophils % Seg Neuts % (Manual) Lymphocytes % (Manual) Seg Neutrophils # Seg Neutrophils # Man Lymphocytes # (Manual) D-Dimer ABG pH POC ABG pO2 ABG pO2 ABG HCO3 ABG O2 Saturation ABG Base Excess ABG Oxyhemoglobin ABG Sodium ABG Chloride ABG Glucose Oxyhemoglobin Carboxyhemoglobin Sodium Potassium Chloride Carbon Dioxide BUN Creatinine Glucose POC Glucose 361 H 297 H 226 H Hemoglobin A1c Ferritin AST ALT Alkaline Phosphatase Lactate Dehydrogenase C-Reactive Protein Total Protein Albumin Arterial Blood Glucose Coronavirus (PCR) 05/03/21 05/04/21 05/04/21 23:12 05:12 07:30 WBC MCHC RDW Lymph % (Auto) Lymph # (Auto) Baso # (Auto) Seg Neutrophils % Seg Neuts % (Manual) Lymphocytes % (Manual) Seg Neutrophils # Seg Neutrophils # Man Lymphocytes # (Manual) D-Dimer ABG pH POC ABG pO2 ABG pO2 ABG HCO3 ABG O2 Saturation ABG Base Excess ABG Oxyhemoglobin ABG Sodium ABG Chloride ABG Glucose Oxyhemoglobin Carboxyhemoglobin Sodium Potassium Chloride Carbon Dioxide BUN Creatinine Glucose POC Glucose 282 H 285 H 254 H Hemoglobin A1c Ferritin AST ALT Alkaline Phosphatase Lactate Dehydrogenase C-Reactive Protein Total Protein Albumin Arterial Blood Glucose Coronavirus (PCR) 05/04/21 05/04/21 05/04/21 08:58 11:45 16:07 WBC MCHC RDW Lymph % (Auto) Lymph # (Auto) Baso # (Auto) Seg Neutrophils % Seg Neuts % (Manual) Lymphocytes % (Manual) Seg Neutrophils # Seg Neutrophils # Man Lymphocytes # (Manual) D-Dimer ABG pH POC ABG pO2 ABG pO2 ABG HCO3 ABG O2 Saturation ABG Base Excess ABG Oxyhemoglobin ABG Sodium ABG Chloride ABG Glucose Oxyhemoglobin Carboxyhemoglobin Sodium 134 L Potassium Chloride Carbon Dioxide BUN 20 H Creatinine 0.3 L Glucose 267 H POC Glucose 244 H 297 H Hemoglobin A1c Ferritin AST ALT Alkaline Phosphatase Lactate Dehydrogenase C-Reactive Protein Total Protein 6.0 L Albumin 3.2 L Arterial Blood Glucose Coronavirus (PCR) 05/04/21 05/05/21 05/05/21 23:32 05:00 05:13 WBC MCHC RDW Lymph % (Auto) Lymph # (Auto) Baso # (Auto) Seg Neutrophils % Seg Neuts % (Manual) Lymphocytes % (Manual) Seg Neutrophils # Seg Neutrophils # Man Lymphocytes # (Manual) D-Dimer ABG pH POC ABG pO2 ABG pO2 ABG HCO3 ABG O2 Saturation ABG Base Excess ABG Oxyhemoglobin ABG Sodium ABG Chloride ABG Glucose Oxyhemoglobin Carboxyhemoglobin Sodium 132 L Potassium Chloride 96.4 L Carbon Dioxide BUN 22 H Creatinine 0.3 L Glucose 228 H POC Glucose 154 H 260 H Hemoglobin A1c Ferritin AST ALT 67 H Alkaline Phosphatase Lactate Dehydrogenase C-Reactive Protein Total Protein 6.1 L Albumin 3.2 L Arterial Blood Glucose Coronavirus (PCR) 05/05/21 05/05/21 05/05/21 11:32 17:49 23:07 WBC MCHC RDW Lymph % (Auto) Lymph # (Auto) Baso # (Auto) Seg Neutrophils % Seg Neuts % (Manual) Lymphocytes % (Manual) Seg Neutrophils # Seg Neutrophils # Man Lymphocytes # (Manual) D-Dimer ABG pH POC ABG pO2 ABG pO2 ABG HCO3 ABG O2 Saturation ABG Base Excess ABG Oxyhemoglobin ABG Sodium ABG Chloride ABG Glucose Oxyhemoglobin Carboxyhemoglobin Sodium Potassium Chloride Carbon Dioxide BUN Creatinine Glucose POC Glucose 279 H 308 H 213 H Hemoglobin A1c Ferritin AST ALT Alkaline Phosphatase Lactate Dehydrogenase C-Reactive Protein Total Protein Albumin Arterial Blood Glucose Coronavirus (PCR) 05/06/21 05/06/21 05/06/21 05:00 05:00 05:20 WBC MCHC RDW 16.8 H Lymph % (Auto) Lymph # (Auto) Baso # (Auto) Seg Neutrophils % Seg Neuts % (Manual) 99.0 H Lymphocytes % (Manual) Seg Neutrophils # Seg Neutrophils # Man 10.9 H Lymphocytes # (Manual) 0.0 L D-Dimer ABG pH POC ABG pO2 ABG pO2 ABG HCO3 ABG O2 Saturation ABG Base Excess ABG Oxyhemoglobin ABG Sodium ABG Chloride ABG Glucose Oxyhemoglobin Carboxyhemoglobin Sodium 133 L Potassium Chloride Carbon Dioxide BUN 21 H Creatinine 0.3 L Glucose 259 H POC Glucose 308 H Hemoglobin A1c Ferritin AST ALT Alkaline Phosphatase Lactate Dehydrogenase C-Reactive Protein Total Protein Albumin 3.2 L Arterial Blood Glucose Coronavirus (PCR) 05/06/21 05/06/21 05/06/21 11:24 17:54 21:32 WBC MCHC RDW Lymph % (Auto) Lymph # (Auto) Baso # (Auto) Seg Neutrophils % Seg Neuts % (Manual) Lymphocytes % (Manual) Seg Neutrophils # Seg Neutrophils # Man Lymphocytes # (Manual) D-Dimer ABG pH POC ABG pO2 ABG pO2 ABG HCO3 ABG O2 Saturation ABG Base Excess ABG Oxyhemoglobin ABG Sodium ABG Chloride ABG Glucose Oxyhemoglobin Carboxyhemoglobin Sodium Potassium Chloride Carbon Dioxide BUN Creatinine Glucose POC Glucose 262 H 124 H 246 H Hemoglobin A1c Ferritin AST ALT Alkaline Phosphatase Lactate Dehydrogenase C-Reactive Protein Total Protein Albumin Arterial Blood Glucose Coronavirus (PCR) 05/06/21 05/07/21 05/07/21 23:10 04:54 04:54 WBC MCHC RDW Lymph % (Auto) Lymph # (Auto) Baso # (Auto) Seg Neutrophils % Seg Neuts % (Manual) Lymphocytes % (Manual) Seg Neutrophils # Seg Neutrophils # Man Lymphocytes # (Manual) D-Dimer 1609.28 H ABG pH POC ABG pO2 ABG pO2 ABG HCO3 ABG O2 Saturation ABG Base Excess ABG Oxyhemoglobin ABG Sodium ABG Chloride ABG Glucose Oxyhemoglobin Carboxyhemoglobin Sodium 136 L Potassium Chloride Carbon Dioxide BUN 23 H Creatinine 0.3 L Glucose 110 H POC Glucose 249 H Hemoglobin A1c Ferritin AST ALT Alkaline Phosphatase Lactate Dehydrogenase C-Reactive Protein Total Protein 6.2 L Albumin 3.0 L Arterial Blood Glucose Coronavirus (PCR) 05/07/21 05/07/21 05/07/21 04:54 04:54 11:41 WBC MCHC RDW Lymph % (Auto) Lymph # (Auto) Baso # (Auto) Seg Neutrophils % Seg Neuts % (Manual) Lymphocytes % (Manual) Seg Neutrophils # Seg Neutrophils # Man Lymphocytes # (Manual) D-Dimer ABG pH POC ABG pO2 ABG pO2 ABG HCO3 ABG O2 Saturation ABG Base Excess ABG Oxyhemoglobin ABG Sodium ABG Chloride ABG Glucose Oxyhemoglobin Carboxyhemoglobin Sodium Potassium Chloride Carbon Dioxide BUN Creatinine Glucose POC Glucose 118 H Hemoglobin A1c Ferritin 296.1 H AST ALT Alkaline Phosphatase Lactate Dehydrogenase 724 H C-Reactive Protein Total Protein Albumin Arterial Blood Glucose Coronavirus (PCR) 05/07/21 05/07/21 05/08/21 16:43 22:34 06:44 WBC MCHC RDW Lymph % (Auto) Lymph # (Auto) Baso # (Auto) Seg Neutrophils % Seg Neuts % (Manual) Lymphocytes % (Manual) Seg Neutrophils # Seg Neutrophils # Man Lymphocytes # (Manual) D-Dimer ABG pH POC ABG pO2 ABG pO2 ABG HCO3 ABG O2 Saturation ABG Base Excess ABG Oxyhemoglobin ABG Sodium ABG Chloride ABG Glucose Oxyhemoglobin Carboxyhemoglobin Sodium Potassium Chloride Carbon Dioxide BUN Creatinine Glucose POC Glucose 159 H 233 H 235 H Hemoglobin A1c Ferritin AST ALT Alkaline Phosphatase Lactate Dehydrogenase C-Reactive Protein Total Protein Albumin Arterial Blood Glucose Coronavirus (PCR) 05/08/21 05/08/21 05/08/21 07:49 11:56 17:13 WBC MCHC RDW Lymph % (Auto) Lymph # (Auto) Baso # (Auto) Seg Neutrophils % Seg Neuts % (Manual) Lymphocytes % (Manual) Seg Neutrophils # Seg Neutrophils # Man Lymphocytes # (Manual) D-Dimer ABG pH POC ABG pO2 ABG pO2 ABG HCO3 ABG O2 Saturation ABG Base Excess ABG Oxyhemoglobin ABG Sodium ABG Chloride ABG Glucose Oxyhemoglobin Carboxyhemoglobin Sodium Potassium Chloride Carbon Dioxide BUN Creatinine Glucose POC Glucose 219 H 184 H 182 H Hemoglobin A1c Ferritin AST ALT Alkaline Phosphatase Lactate Dehydrogenase C-Reactive Protein Total Protein Albumin Arterial Blood Glucose Coronavirus (PCR) 05/08/21 05/09/21 05/09/21 23:35 05:20 05:20 WBC MCHC RDW Lymph % (Auto) Lymph # (Auto) Baso # (Auto) Seg Neutrophils % Seg Neuts % (Manual) Lymphocytes % (Manual) Seg Neutrophils # Seg Neutrophils # Man Lymphocytes # (Manual) D-Dimer 1003.87 H ABG pH POC ABG pO2 ABG pO2 ABG HCO3 ABG O2 Saturation ABG Base Excess ABG Oxyhemoglobin ABG Sodium ABG Chloride ABG Glucose Oxyhemoglobin Carboxyhemoglobin Sodium Potassium Chloride Carbon Dioxide BUN Creatinine Glucose POC Glucose 198 H Hemoglobin A1c Ferritin 378.7 H AST ALT Alkaline Phosphatase Lactate Dehydrogenase C-Reactive Protein Total Protein Albumin Arterial Blood Glucose Coronavirus (PCR) 05/09/21 05/09/21 05/09/21 05:20 06:04 12:53 WBC MCHC RDW Lymph % (Auto) Lymph # (Auto) Baso # (Auto) Seg Neutrophils % Seg Neuts % (Manual) Lymphocytes % (Manual) Seg Neutrophils # Seg Neutrophils # Man Lymphocytes # (Manual) D-Dimer ABG pH POC ABG pO2 ABG pO2 ABG HCO3 ABG O2 Saturation ABG Base Excess ABG Oxyhemoglobin ABG Sodium ABG Chloride ABG Glucose Oxyhemoglobin Carboxyhemoglobin Sodium Potassium Chloride Carbon Dioxide BUN Creatinine Glucose POC Glucose 159 H 180 H Hemoglobin A1c Ferritin AST ALT Alkaline Phosphatase Lactate Dehydrogenase 558 H C-Reactive Protein 2.40 H Total Protein Albumin Arterial Blood Glucose Coronavirus (PCR) 05/09/21 05/09/21 05/10/21 16:43 21:27 10:18 WBC MCHC RDW Lymph % (Auto) Lymph # (Auto) Baso # (Auto) Seg Neutrophils % Seg Neuts % (Manual) Lymphocytes % (Manual) Seg Neutrophils # Seg Neutrophils # Man Lymphocytes # (Manual) D-Dimer ABG pH POC ABG pO2 ABG pO2 ABG HCO3 ABG O2 Saturation ABG Base Excess ABG Oxyhemoglobin ABG Sodium ABG Chloride ABG Glucose Oxyhemoglobin Carboxyhemoglobin Sodium Potassium Chloride Carbon Dioxide BUN Creatinine Glucose POC Glucose 212 H 285 H 261 H Hemoglobin A1c Ferritin AST ALT Alkaline Phosphatase Lactate Dehydrogenase C-Reactive Protein Total Protein Albumin Arterial Blood Glucose Coronavirus (PCR) 05/10/21 05/10/21 05/11/21 17:58 18:02 00:29 WBC MCHC RDW Lymph % (Auto) Lymph # (Auto) Baso # (Auto) Seg Neutrophils % Seg Neuts % (Manual) Lymphocytes % (Manual) Seg Neutrophils # Seg Neutrophils # Man Lymphocytes # (Manual) D-Dimer ABG pH POC ABG pO2 ABG pO2 ABG HCO3 ABG O2 Saturation ABG Base Excess ABG Oxyhemoglobin ABG Sodium ABG Chloride ABG Glucose Oxyhemoglobin Carboxyhemoglobin Sodium Potassium Chloride Carbon Dioxide BUN Creatinine Glucose POC Glucose 213 H 179 H 149 H Hemoglobin A1c Ferritin AST ALT Alkaline Phosphatase Lactate Dehydrogenase C-Reactive Protein Total Protein Albumin Arterial Blood Glucose Coronavirus (PCR) 05/11/21 05/11/21 05/11/21 05:22 11:32 17:00 WBC 14.9 H MCHC RDW 18.9 H Lymph % (Auto) 4.9 L Lymph # (Auto) 0.7 L Baso # (Auto) 0.2 H Seg Neutrophils % Seg Neuts % (Manual) Lymphocytes % (Manual) Seg Neutrophils # 13.3 H Seg Neutrophils # Man Lymphocytes # (Manual) D-Dimer ABG pH POC ABG pO2 ABG pO2 ABG HCO3 ABG O2 Saturation ABG Base Excess ABG Oxyhemoglobin ABG Sodium ABG Chloride ABG Glucose Oxyhemoglobin Carboxyhemoglobin Sodium Potassium Chloride Carbon Dioxide BUN Creatinine Glucose POC Glucose 162 H 179 H Hemoglobin A1c Ferritin AST ALT Alkaline Phosphatase Lactate Dehydrogenase C-Reactive Protein Total Protein Albumin Arterial Blood Glucose Coronavirus (PCR) 05/11/21 05/11/21 05/11/21 17:00 17:33 22:03 WBC MCHC RDW Lymph % (Auto) Lymph # (Auto) Baso # (Auto) Seg Neutrophils % Seg Neuts % (Manual) Lymphocytes % (Manual) Seg Neutrophils # Seg Neutrophils # Man Lymphocytes # (Manual) D-Dimer ABG pH POC ABG pO2 ABG pO2 ABG HCO3 ABG O2 Saturation ABG Base Excess ABG Oxyhemoglobin ABG Sodium ABG Chloride ABG Glucose Oxyhemoglobin Carboxyhemoglobin Sodium 135 L Potassium Chloride 97.3 L Carbon Dioxide BUN 21 H Creatinine 0.3 L Glucose 133 H POC Glucose 140 H 282 H Hemoglobin A1c Ferritin AST ALT 60 H Alkaline Phosphatase Lactate Dehydrogenase C-Reactive Protein Total Protein Albumin 3.1 L Arterial Blood Glucose Coronavirus (PCR) 05/12/21 05/12/21 05/12/21 04:05 04:05 04:05 WBC MCHC RDW 18.4 H Lymph % (Auto) Lymph # (Auto) Baso # (Auto) Seg Neutrophils % Seg Neuts % (Manual) 94.0 H Lymphocytes % (Manual) 4.0 L Seg Neutrophils # Seg Neutrophils # Man Lymphocytes # (Manual) 0.3 L D-Dimer ABG pH POC ABG pO2 ABG pO2 ABG HCO3 ABG O2 Saturation ABG Base Excess ABG Oxyhemoglobin ABG Sodium ABG Chloride ABG Glucose Oxyhemoglobin Carboxyhemoglobin Sodium 136 L Potassium Chloride Carbon Dioxide BUN 18 H Creatinine 0.2 L Glucose 142 H POC Glucose Hemoglobin A1c Ferritin 350.7 H AST ALT Alkaline Phosphatase Lactate Dehydrogenase 546 H C-Reactive Protein Total Protein 6.1 L Albumin 3.0 L Arterial Blood Glucose Coronavirus (PCR) 05/12/21 05/12/21 05/12/21 05:11 11:17 16:27 WBC MCHC RDW Lymph % (Auto) Lymph # (Auto) Baso # (Auto) Seg Neutrophils % Seg Neuts % (Manual) Lymphocytes % (Manual) Seg Neutrophils # Seg Neutrophils # Man Lymphocytes # (Manual) D-Dimer ABG pH POC ABG pO2 ABG pO2 ABG HCO3 ABG O2 Saturation ABG Base Excess ABG Oxyhemoglobin ABG Sodium ABG Chloride ABG Glucose Oxyhemoglobin Carboxyhemoglobin Sodium Potassium Chloride Carbon Dioxide BUN Creatinine Glucose POC Glucose 152 H 190 H 261 H Hemoglobin A1c Ferritin AST ALT Alkaline Phosphatase Lactate Dehydrogenase C-Reactive Protein Total Protein Albumin Arterial Blood Glucose Coronavirus (PCR) 05/12/21 05/13/21 05/13/21 20:55 11:08 21:41 WBC MCHC RDW Lymph % (Auto) Lymph # (Auto) Baso # (Auto) Seg Neutrophils % Seg Neuts % (Manual) Lymphocytes % (Manual) Seg Neutrophils # Seg Neutrophils # Man Lymphocytes # (Manual) D-Dimer ABG pH POC ABG pO2 ABG pO2 ABG HCO3 ABG O2 Saturation ABG Base Excess ABG Oxyhemoglobin ABG Sodium ABG Chloride ABG Glucose Oxyhemoglobin Carboxyhemoglobin Sodium Potassium Chloride Carbon Dioxide BUN Creatinine Glucose POC Glucose 231 H 106 H 174 H Hemoglobin A1c Ferritin AST ALT Alkaline Phosphatase Lactate Dehydrogenase C-Reactive Protein Total Protein Albumin Arterial Blood Glucose Coronavirus (PCR) 05/14/21 05/14/21 05/14/21 00:53 02:23 06:06 WBC MCHC RDW Lymph % (Auto) Lymph # (Auto) Baso # (Auto) Seg Neutrophils % Seg Neuts % (Manual) Lymphocytes % (Manual) Seg Neutrophils # Seg Neutrophils # Man Lymphocytes # (Manual) D-Dimer ABG pH POC ABG pO2 ABG pO2 130.3 H ABG HCO3 30.6 H ABG O2 Saturation ABG Base Excess 4.9 H ABG Oxyhemoglobin ABG Sodium ABG Chloride ABG Glucose Oxyhemoglobin Carboxyhemoglobin Sodium Potassium Chloride Carbon Dioxide BUN Creatinine Glucose POC Glucose 229 H 119 H Hemoglobin A1c Ferritin AST ALT Alkaline Phosphatase Lactate Dehydrogenase C-Reactive Protein Total Protein Albumin Arterial Blood Glucose Coronavirus (PCR) 05/14/21 05/14/21 05/14/21 07:13 07:13 07:13 WBC MCHC RDW Lymph % (Auto) Lymph # (Auto) Baso # (Auto) Seg Neutrophils % Seg Neuts % (Manual) Lymphocytes % (Manual) Seg Neutrophils # Seg Neutrophils # Man Lymphocytes # (Manual) D-Dimer 712.80 H ABG pH POC ABG pO2 ABG pO2 ABG HCO3 ABG O2 Saturation ABG Base Excess ABG Oxyhemoglobin ABG Sodium ABG Chloride ABG Glucose Oxyhemoglobin Carboxyhemoglobin Sodium 133 L Potassium Chloride 95.5 L Carbon Dioxide 32 H BUN Creatinine 0.2 L Glucose 137 H POC Glucose Hemoglobin A1c Ferritin 283.5 H AST ALT 63 H Alkaline Phosphatase Lactate Dehydrogenase 563 H C-Reactive Protein Total Protein 6.1 L Albumin 3.0 L Arterial Blood Glucose Coronavirus (PCR) 05/14/21 05/14/21 05/14/21 12:21 15:33 21:50 WBC MCHC RDW Lymph % (Auto) Lymph # (Auto) Baso # (Auto) Seg Neutrophils % Seg Neuts % (Manual) Lymphocytes % (Manual) Seg Neutrophils # Seg Neutrophils # Man Lymphocytes # (Manual) D-Dimer ABG pH POC ABG pO2 ABG pO2 ABG HCO3 ABG O2 Saturation ABG Base Excess ABG Oxyhemoglobin ABG Sodium ABG Chloride ABG Glucose Oxyhemoglobin Carboxyhemoglobin Sodium Potassium Chloride Carbon Dioxide BUN Creatinine Glucose POC Glucose 143 H 204 H 202 H Hemoglobin A1c Ferritin AST ALT Alkaline Phosphatase Lactate Dehydrogenase C-Reactive Protein Total Protein Albumin Arterial Blood Glucose Coronavirus (PCR) 05/15/21 05/15/21 05/15/21 05:05 11:12 16:39 WBC MCHC RDW Lymph % (Auto) Lymph # (Auto) Baso # (Auto) Seg Neutrophils % Seg Neuts % (Manual) Lymphocytes % (Manual) Seg Neutrophils # Seg Neutrophils # Man Lymphocytes # (Manual) D-Dimer ABG pH POC ABG pO2 ABG pO2 ABG HCO3 ABG O2 Saturation ABG Base Excess ABG Oxyhemoglobin ABG Sodium ABG Chloride ABG Glucose Oxyhemoglobin Carboxyhemoglobin Sodium Potassium Chloride Carbon Dioxide BUN Creatinine Glucose POC Glucose 125 H 201 H 241 H Hemoglobin A1c Ferritin AST ALT Alkaline Phosphatase Lactate Dehydrogenase C-Reactive Protein Total Protein Albumin Arterial Blood Glucose Coronavirus (PCR) 05/15/21 05/16/21 21:31 05:04 WBC MCHC RDW Lymph % (Auto) Lymph # (Auto) Baso # (Auto) Seg Neutrophils % Seg Neuts % (Manual) Lymphocytes % (Manual) Seg Neutrophils # Seg Neutrophils # Man Lymphocytes # (Manual) D-Dimer ABG pH POC ABG pO2 ABG pO2 ABG HCO3 ABG O2 Saturation ABG Base Excess ABG Oxyhemoglobin ABG Sodium ABG Chloride ABG Glucose Oxyhemoglobin Carboxyhemoglobin Sodium Potassium Chloride Carbon Dioxide BUN Creatinine Glucose POC Glucose 234 H 123 H Hemoglobin A1c Ferritin AST ALT Alkaline Phosphatase Lactate Dehydrogenase C-Reactive Protein Total Protein Albumin Arterial Blood Glucose Coronavirus (PCR)
[2021-05-16] MEDS: FAMOTIDINE 20 MG TAB PO SCH ×2 (10:27→22:42)
[2021-05-16] MEDS: CHOLECALCIFEROL (VIT D3) 1000 UNIT (25 mcg) TAB PO SCH (10:27)
[2021-05-16] MEDS: NYSTATIN 500,000 UNIT/5 ML ORAL LIQD PO SCH ×4 (10:27→22:42)
[2021-05-16] MEDS: DOCUSATE SODIUM 100 MG CAP PO SCH ×2 (10:27→22:42)
[2021-05-16] MEDS: ASCORBIC ACID 500 MG TAB PO SCH (10:27)
[2021-05-16] MEDS: POLYETHYLENE GLYCOL 3350 17 GM POWDER PO SCH (10:27)
[2021-05-16] MEDS: ZINC SULFATE 220 MG CAP PO SCH ×2 (10:28→22:42)
[2021-05-16] MEDS: INSULIN GLARGINE 100 UNITS/ML SUB-Q SCH ×2 (10:29→22:42)
--- NOTE | 2021-05-16 15:58 | Progress Note ---
Assessment and Plan 50-year-old female past medical history obesity, GERD, hyperlipidemia brought to the hospital due to shortness of breath, fevers, malaise, typical Covid symptoms for approximate 1 week prior to admission and was progressively worse since on set. She is found to have saturations of 86% on presentation. Afebrile since admission with a white count 7.5. Covid test was positive positive along with normal renal function and normal procalcitonin. Chest x-ray: Bilateral pneumonia. Patient initiated on Covid protocol, ID and pulmonary care following Assessment and plan: --Acute hypoxic resp failure due to covid19 -S/p BiPAP, now discontinued -Currently on high per nasal cannula at flow rate 40 L/min along with nonrebreather -See RT notes for titration -Albuterol as needed -Pulmonary hygiene -Pulmonology following CTA chest ordered, patient could not tolerate --covid19 pna; sepsis; -zinc/vitC/D -methylpred 125 mg every 8; wean as appropriate -Infectious disease consulted, -S/p Actemra and remdesivir -Trend temperature and WBC curve -Follow culture data --Oral candidiasis Nystatin solution ordered. -- hyponatremia -Last 24 hours -125 -Trend BMP -Replace electrolytes as needed -Monitor intake and output -- coagulopathy of covid; on AC -Subcu heparin -Trend CBC -Transfuse for hemoglobin less than 7 -Bilateral lower extremity Doppler ultrasounds negative for DVT ; no CTA or VQ scan to rule out PE -- hyperglycemia; obesity -glargine HS -SSI AC/HS -Avoid hypoglycemia -- risk for protein gisella malnutrition given inc metabolic demand with resp insufficiency -TPN earlier in hospital admission due to BiPAP however now patient is tolerating p.o. -Patient on a GI soft diet with aspiration precautions -Nutrition following -Bowel regimen: Colace, senna, MiraLAX -PPI --Anxiety Likely due to severe hypoxia -Follows commands and RAY -PRN pain and anxiety meds -Patient is Maltese-speaking but understands Greek --viral conjunctivitis right eye: -Right eye- s/p 5 d course of cipro drops. suspect viral conjunctivitis. lubricating eye drops. supportive management. --Septic shock -S/p pressors now discontinued -MAP goal 65 -Pressure monitor per protocol --DVT prophylaxis, per hospital protocol Hospital course to date: 04/17: Patient seen and examined, still uncomfortable with Hypoxic respiratory failure and on oxygen, will continue to steroids therapy, start patient on Remdesivir, ID consulted, Pulmonary consult placed. 04/18: Patient seen and examined, she is currently being changed to High flow NC due to worsening HYPOXIA, will transfer to IMCU, Pulmonary and ID following. Will also give a dose of Lasix today. Monitor Inflammatory markers. 04/19: Patient seen and examined still on high flow due to hypoxia. Appears a bit more comfortable today than yesterday. Cough has decreased in frequency. We will continue high dose Dexameathasone to complete 10 days. continue on Remdesivir 200 mg IV q day x 1 followed by 100 mg IV q day x 4 days -Obtain q48-72h inflammatory markers - ferritin, Ddimer, CRP, LDH Will also give lasix daily for the next 3 days and monitor renal function. Family updated. Continue prone positioning as tolerated 04/20: Patient has some desaturation episodes yesterday was placed on BiPAP. Discussed with ICU team for bed availability for patient to be transferred up. Continue prone position as tolerated. 04/21: Patient remains with profound hypoxia secondary to COVID pneumonia. -Continue steroids -Continue remedesir -S/P Actmera 04/22: Patient remains on steroids and remdesivir. ABG shows persistent hypoxia. We will continue current management additional trial of Lasix for the next few days to see if any improvement. Monitor inflammatory markers as needed. Prognosis is guarded remains on high flow 04/23; patient was treated with remdesivir and Actemra. Continue steroid. Patient's prognosis is guarded. 04/24; patient is on steroid. Patient is currently on BiPAP. Prognosis is guarded. Pulmonary is following. Patient was given Lasix and Ativan. 04/25; continue steroid. Patient was on 40 L of high flow oxygen with saturation was 88%. Pulmonary is following. Prognosis is guarded. Patient was given lasix and ativan. 04/26; patient is on BiPAP and Precedex. Prognosis is guarded. 04/27; patient is on BiPAP and Precedex. Patient will finish steroid today and will start on Solu-Medrol tomorrow. Prognosis is guarded. Blood pressure is better today. Hold Lasix. 04/28 patient is on 100 Fio2 via BIPAP. moderately dyspneic, pulmonary note reviewed, lab results reviewed 04/29 no acute events- see systems review above 04/30 no acute events overnight - on airvo today- TPN started -see systems review above 05-01 no acute events overnight- tolerating airvo- see systems review above 05-02 no acute events overnight; tolerating airvo this AM- see systems review above 05/03: Patient has shown remarkable improvement, weaned down to 3 L and satting 95%. Will attempt to walk test today in anticipation for discharge tomorrow. Discussed with PT team to walk the patient today also. 05/04: Patient appears to have had a decline he was down to 3 L satting 95% with anticipation for discharge today but desatted down to 85% on room air and only 88% on 5 L he is now back at 8 L. I encourage incentive spirometer. While he is on Xarelto and has completed the severe steroids which was subsequently changed to Solu-Medrol I will go ahead and order a CTA to make sure that there is not a failure of Xarelto. We will continue to wean as tolerated discussed with nursing staff at bedside. 05/05/21 Patient is on 40 L of oxygen with 80% FiO2. Patient is encouraged to turn to the side more frequently. Patient is denied any shortness of breath and coughing. No other complaints. Follow the CT scan of the chest. Status post remdesivir and Actemra.Solu-Medrol 40 mg IV every 8 hours. Continue current management. Pulmonary follow-up. 05/06: Patient remains on high flow nasal cannula but states that she feels slightly better with the help of translation from her cousin Aspen. Patient is still awaiting a bed on the floor. Patient diet is being tolerated now so we will stop TPN will be stopped tonight. 05/07/2021: Patient remains on 40 L/min oxygen at 90% FiO2. Attempt made for CTA chest to rule out pulmonary embolism however patient desatted while at CT. Study was aborted, will reattempt again tomorrow. will follow along with renetta bertrand. Discussed/updated patient and patient's daughter over phone regarding any active clinical issues. Patient only complaint is oral pain from oral candidiasis noted on exam. Nystatin oral solution ordered. Daughter also voiced concern over patient eye drops which she stated that patient needed to restart from home. However she did not remember name of drops. advised daughter to call our hospital with drop name and dosing and we will restart. 05/08/2021: Started anticoagulation with Lovenox yesterday. Awaiting CTA chest completion. Will attempt to de-escalate oxygen as patient tolerates 05/09/2021: Continues to have high O2 requirements. CTA chest aborted due to patient not being able to tolerate transport to and from scanner. Will follow pulmonology recommendations 05/10/2021: Steroids increased yesterday to 125 mg every 8 hour. Continuing full dose anticoagulation. Respiratory status still remains challenging as it is difficult to wean patient off of hifnc. Minimal improvement compared to last few days. Plan to prone patient today. Otherwise: Some improvement in eye symptoms compared to yesterday. Will order more lubricating eye drops 05/11/2021: Still requires high flow nasal cannula, FiO2 de-escalated to 85%.. Encourage continued proning, patient care team aware. Continue with steroids, anticoagulation, antibiotics. 05/12/2021: High flow nasal cannula remains at flow rate 35 L/min and FiO2 of 85%. Patient appears more comfortable today. Started insulin regimen due to hyperglycemia likely multifactorial in the setting of underlying diabetes and high-dose steroids. Continue to encourage patient to prone. Discussed with pulmonology regarding patient underlying anxiety. We both agreed that low-dose BuSpar might be beneficial for the patient. 05/13/2020: hypoxic resp distress overnight. cpap ordered. Current settings on encounter 30/04 at 100% FIO2. Advised care (RN, RT, PT) team to continue to aggressively work with patient as far as proning. Patient can sit at side of bed and rest on bedside tray w/ pillow in "Rodin's thinker pose". continue high dose steroids, PRN ativan for anxiety, Buspar noted in pulm recs. 05/14/21: Patient remains on 100% O2 with high flow. Follow inflammatory markers, wean FiO2 as tolerated, guarded prognosis 05/15: Patient on 40 L high flow O2 today-requiring nonrebreather intermittently, continue to follow inflammatory markers and wean off O2 as shaan ated, guarded prognosis. 05/16:-Remains on high flow O2 along with nonrebreather, continue to follow inflammatory markers and wean off O2 as tolerated, pulmonary and ID following. Guarded prognosis, patient requiring higher concentration of O2 and unable to wean off. Subjective Date of service: 05/16/21 Principal diagnosis: Covid-19 Interval history: Patient seen and examined. Medical records and medication list reviewed. No acute event overnight noted by the RN. Patient remains on high flow O2 along with nonrebreather. Patient is tolerating diet. Discussed plan of care at bedside with patient. Objective - Exam Narrative Exam: Limited physical exam due to COVID-19 pandemic to minimize transmission of the disease and to preserve PPE. Vital reviewed and stable. GENERAL: well-developed well-nourished lying on bed appeared to be in no discomfort. HEENT: Normocephalic. Atraumatic. Right eye congestion NECK: Supple. CHEST/LUNGS: breathing on high flow O2 with nonrebreather HEART/CARDIOVASCULAR: Heart rate stable on telemetry ABDOMEN: Visibly not distended SKIN: There is no rash NEURO: No focal motor deficit. Follows command. MUSCULOSKELETAL: No joint effusion EXTRIMITY: No swelling, no cyanosis or clubbing. PSYCH: Cooperative. - Constitutional Vitals: Vital Signs - 12hr 05/16/21 05/16/21 05/16/21 05:07 10:43 10:55 Temperature 98.3 F 97.4 F L Pulse Rate 68 95 H Respiratory 22 23 Rate Blood Pressure 108/68 110/63 O2 Sat by Pulse 98 96 96 Oximetry - Labs CBC & Chem 7: 05/17/21 06:20 05/17/21 06:20 Labs: Abnormal lab results 05/15/21 05/15/21 05/16/21 Range/Units 16:39 21:31 05:04 POC Glucose 241 H 234 H 123 H (70-105) mg/dL 05/16/21 Range/Units 10:40 POC Glucose 231 H (70-105) mg/dL
[2021-05-16] MEDS: HYPROMELLOSE 0.5% OPHTH SOLN 15 ML OU PRN (18:09)
[2021-05-16] MEDS: SENNOSIDES 8.6 MG TAB PO SCH (22:41)
[2021-05-17] MEDS: ACETAMINOPHEN 325 MG TAB PO PRN ×3 (00:16→22:08)
[2021-05-17] MEDS: INSULIN LISPRO 100 UNIT/ML SUB-Q SCH ×5 (00:17→23:40)
[2021-05-17] MEDS: INSULIN REGULAR, HUMAN 100 UNITS/1 ML SUB-Q SCH ×5 (00:18→23:39)
[2021-05-17] MEDS: LORazepam 2 MG/ML VIAL IV SCH ×5 (00:19→23:40)
[2021-05-17] MEDS: ENOXAPARIN 80 MG/0.8 ML INJ SUB-Q SCH ×2 (06:08→18:27)
[2021-05-17] MEDS: methylPREDNISolone Sod Succinate 125 MG/2 ML INJ IV SCH ×3 (06:08→21:51)
[2021-05-17] MEDS: MINERAL OIL/PETROLATUM, WHITE OPHTH OINT 3.5 GM OU SCH ×3 (06:08→21:56)
[2021-05-17 07:00] LABS: Basophils % (Auto) 0.3 % (0.0-1.8); Hematocrit 36.1 % (30.3-42.9); Hemoglobin 12.1 gm/dl (10.1-14.3); Lymphocytes # (Auto) 0.8 K/mm3 (1.2-5.4); Lymphocytes % (Auto) 10.2 % (13.4-35.0); Mean Corpuscular HGB Conc 34 % (30-34); Mean Corpuscular Volume 90 fl (79-97); Monocytes # (Auto) 0.3 K/mm3 (0.0-0.8); Monocytes % (Auto) 3.7 % (0.0-7.3); Platelet Count 257 K/mm3 (140-440); Red Blood Count 3.99 M/mm3 (3.65-5.03); Red Cell Distribution Width 18.8 % (13.2-15.2)
[2021-05-17 07:24] LABS: Blood Urea Nitrogen 15 mg/dL (7-17); Hemolysis Index 2
[2021-05-17 07:47] LABS: BUN/Creatinine Ratio 75
[2021-05-17] MEDS: ASCORBIC ACID 500 MG TAB PO SCH (09:50)
[2021-05-17] MEDS: ZINC SULFATE 220 MG CAP PO SCH ×2 (09:50→21:51)
[2021-05-17] MEDS: DOCUSATE SODIUM 100 MG CAP PO SCH ×2 (09:50→21:51)
[2021-05-17] MEDS: NYSTATIN 500,000 UNIT/5 ML ORAL LIQD PO SCH ×2 (09:50→15:37)
[2021-05-17] MEDS: CHOLECALCIFEROL (VIT D3) 1000 UNIT (25 mcg) TAB PO SCH (09:50)
[2021-05-17] MEDS: FAMOTIDINE 20 MG TAB PO SCH ×2 (09:50→21:50)
[2021-05-17] MEDS: POLYETHYLENE GLYCOL 3350 17 GM POWDER PO SCH (09:51)
[2021-05-17] MEDS: INSULIN GLARGINE 100 UNITS/ML SUB-Q SCH ×2 (09:52→21:54)
--- NOTE | 2021-05-17 11:57 | Progress Note ---
Assessment and Plan 50 y/o female with acute respiratory failure secondary to COVID19 pneumonia. 05/17/21: Prone if possible. Wean FiO2 for sats >88%. COntinue scheduled ativan. Prognosis is very very guarded. Unfunded so not a candidate for LTACH 05/16/21: Prone if willing. Wean FIO2 if patient will allow. Anxiety control. Prognosis still remains very guarded. 05/15/21: Not sure if MAR is accurate but may have only gotten one dose of scheduled anixolytic therapy. Continue proning as tolerated, and wean FiO2 and flow for sats >88%. Prognosi remains very very guarded to poor. 05/14/21: Will discontinue the buspar and make the ativan scheduled but will do q6 as oppose to q4 and attempt to leave parameters for nursing when not to give. If anxiety could be controlled, feel that patient could be weaned further. She has no funding so she is not a candidate for LTACH. Prone if possible. Guarded prognosis. This is her day. 05/13/21: Ordered buspar 10 BID to start with to help with anxiety. Please continue to wean FiO2 as tolerated. Will remind nurse that there is PRN ativan available. Continue higher doses of steroids. Prone if able. 05/12/21: Patient may need something longer acting for anxiety. Per chart has not gotten any ativan in days. Would be ok with either buspar or low dose klonopin bid. COntinue higher doses of steroids as patient seems to be responding. Prone if possible. 05/11/21: Continue high doses of steroids and continue to wean for sats >88%. Please encourage proning. 05/10/21: Will continue this dose of steroid at least through the weekend and assess for improvement. will speak with RT about aggressive weaning. Full dose anticoagulation continues. Very very guarded to poor prognosis. 05/09/21: Going to consider increasing steroids to 125q8, maybe as early as tomorrow. continue full dose anticoagulation. 05/08/21: Continue anticoagulation and steroids. Prone if possible. Anxiety control. No objection to CTA if this can happen. Very very guarded prognosis. 05/07/21: Spoke with IMS, not opposed to full dose anticoagulation. If patient goes back on NRB HFNC combo may need to consider restarting PPN again. Encourage proning. Guarded prognosis. 05/06/21: Continue to wean FiO2 and flow for sats >88%. Tolerating diet now so will stop PPN. Continue anxiety control. Continue IV steroids. Would not object to transfer to COVID floor if bed available. Not sure why she was titrated back up to 100% from 85 as all sats documented in the RT's notes were acceptable. Same for under vital signs as well. 05/03/21: Set back last night from yesterday. Continue bipap therapy for now and attempt HFNC maybe later this afternoon. Continue to use PRN ativan but may need to schedule as she likely took off mask from anxiety. Continue IV steroids. Hold on transfer to COVID Floor. 05/02/21: Continue to wean FiO2 as tolerated for sats >88%. Will continue bipap at night. Patient has no funding so not a candidate for LTACH. Given that she has been stable and not requiring the combo of HFNC and NRB, will consider moving to COVID floor. 05/01/21: Continue to wean FiO2 for sats >88%. A sat of 90 is more than acceptable and oxygen should not be increased for this unless patient desats and remains at a sat lower than 88. Bipap at night to give some form of relief and HFNC during the day. Currently on just this alone which is improvement. Ok with daily diuresis but must monitor renal function and BP closely. She was over diuresed last week and we ended up giving fluid back. Prognosis remains guarded. 04/30/21: Will start CLinimix today for nutritional support, without electrolytes. Check labs in am. Prone if able. Continue precedx for anxiety. Very very guarded prognosis. Attempting our best to not intubate. 04/29/21: Continue precedex. Continue IV solumedrol. Prone if able. Guarded prognosis. 04/28/21: Continue Precedex. Picc team attempting to place line now. Stable on Bipap. Ordered steroids IV solumedrol to start today. Prognosis remains guarded, still at very high risk for intubation. 04/27/21: Hypotension improving/improved. Hold on any further lasix dosing. Continue precedex to help with anxeity. later today please attempt HFNC with NRB if needed. Attempt to feed if possible. Steroids end today, please order solumedrol 40q8 to start tomorrow (04/28/21). guarded prognosis. 04/26/21: Hypotension today, most likely from precedex use and diuresis that I did the last several days. Will bolus again today. Consider midodrine if BP does not respond. 04/25/21: Lasix again today. Keep PRN ativan for now. Hold on precedex for now. Guarded prognosis. Labs ordered for tomorrow. 04/24/21: Lasix today. Will also start patient on low dose PRN ativan. If this does not help will then try precedex. Guarded prognosis. 04/23/21: Prone as tolerated. No lasix today. Continue decadron. Guarded prognosis. High risk for intubation and high mortality with intubation. 04/19/21: Prone as tolerated during the day and sleep prone at night. Continue IV remdesivir and steroids. Did get actemra. Guarded prognosis. 1. Daily net negative state 2. Prone if possible 3. IV remdesivir. 4. Should be a candidate for Actemra 5. IV steroids 6. Guarded Prognosis Subjective Date of service: 05/17/21 Principal diagnosis: Covid-19 Interval history: No acute events. Still on combo therapy. Objective Vital Signs - 12hr 05/17/21 05/17/21 05/17/21 00:16 01:16 02:00 Temperature Pulse Rate Respiratory 21 20 Rate Blood Pressure O2 Sat by Pulse 95 Oximetry 05/17/21 05/17/21 05:29 11:34 Temperature 98.2 F Pulse Rate 74 Respiratory 20 Rate Blood Pressure 105/66 O2 Sat by Pulse 97 94 Oximetry Constitutional: no acute distress, alert Eyes: non-icteric ENT: oropharynx moist Neck: supple Effort: normal Ascultation: Bilateral: diminished breath sounds Cardiovascular: regular rate and rhythm Gastrointestinal: normoactive bowel sounds, soft, non-tender, non-distended Integumentary: normal Extremities: no cyanosis, no edema, pink and warm Neurologic: normal mental status, non-focal exam, pupils equal and round, CN II- XII normal Psychiatric: mood appropriate, affect normal CBC and BMP: 05/17/21 06:20 05/17/21 06:20 ABG, PT/INR, D-dimer: ABG ABG pH 7.403 pH Units (7.350-7.450) 05/14/21 02:23 POC ABG pCO2 45.4 mmHg (32.0-48.0) 05/03/21 04:49 ABG pCO2 50.2 mm Hg 05/14/21 02:23 POC ABG pO2 65.3 mmHg (83-108) L 05/03/21 04:49 ABG pO2 130.3 mm Hg (80.0-90.0) H 05/14/21 02:23 POC ABG HCO3 18.5 05/03/21 04:49 ABG O2 Saturation 98.5 % (95.0-99.0) 05/14/21 02:23 PT/INR, D-dimer D-Dimer 712.80 ng/mlDDU (0-234) H 05/14/21 07:13 Abnormal lab findings: Abnormal Labs 04/16/21 04/16/21 04/16/21 11:42 11:42 11:42 WBC MCHC RDW 16.1 H Lymph % (Auto) 7.8 L Lymph # (Auto) 0.8 L Baso # (Auto) Seg Neutrophils % 87.7 H Seg Neuts % (Manual) Lymphocytes % (Manual) Seg Neutrophils # 8.5 H Seg Neutrophils # Man Lymphocytes # (Manual) D-Dimer 338.70 H ABG pH POC ABG pO2 ABG pO2 ABG HCO3 ABG O2 Saturation ABG Base Excess ABG Oxyhemoglobin ABG Sodium ABG Chloride ABG Glucose Oxyhemoglobin Carboxyhemoglobin Sodium Potassium Chloride Carbon Dioxide BUN Creatinine Glucose 194 H POC Glucose Hemoglobin A1c Ferritin AST ALT Alkaline Phosphatase Lactate Dehydrogenase C-Reactive Protein Total Protein 8.4 H Albumin 3.8 L Arterial Blood Glucose Coronavirus (PCR) 04/16/21 04/16/21 04/17/21 11:42 11:42 03:50 WBC MCHC RDW 16.0 H Lymph % (Auto) 7.7 L Lymph # (Auto) 0.6 L Baso # (Auto) Seg Neutrophils % 89.8 H Seg Neuts % (Manual) Lymphocytes % (Manual) Seg Neutrophils # Seg Neutrophils # Man Lymphocytes # (Manual) D-Dimer ABG pH POC ABG pO2 ABG pO2 ABG HCO3 ABG O2 Saturation ABG Base Excess ABG Oxyhemoglobin ABG Sodium ABG Chloride ABG Glucose Oxyhemoglobin Carboxyhemoglobin Sodium Potassium Chloride Carbon Dioxide BUN Creatinine Glucose 195 H POC Glucose Hemoglobin A1c Ferritin 254.3 H AST ALT Alkaline Phosphatase Lactate Dehydrogenase 359 H C-Reactive Protein 15.20 H Total Protein Albumin Arterial Blood Glucose Coronavirus (PCR) 04/17/21 04/17/21 04/17/21 03:50 08:26 08:26 WBC MCHC RDW Lymph % (Auto) Lymph # (Auto) Baso # (Auto) Seg Neutrophils % Seg Neuts % (Manual) Lymphocytes % (Manual) Seg Neutrophils # Seg Neutrophils # Man Lymphocytes # (Manual) D-Dimer 262.48 H ABG pH POC ABG pO2 ABG pO2 ABG HCO3 ABG O2 Saturation ABG Base Excess ABG Oxyhemoglobin ABG Sodium ABG Chloride ABG Glucose Oxyhemoglobin Carboxyhemoglobin Sodium Potassium Chloride Carbon Dioxide BUN 20 H Creatinine 0.5 L Glucose 249 H 225 H POC Glucose Hemoglobin A1c Ferritin AST ALT Alkaline Phosphatase Lactate Dehydrogenase 338 H C-Reactive Protein 17.20 H Total Protein Albumin 3.2 L Arterial Blood Glucose Coronavirus (PCR) 04/17/21 04/17/21 04/17/21 08:26 15:04 Unknown WBC MCHC RDW Lymph % (Auto) Lymph # (Auto) Baso # (Auto) Seg Neutrophils % Seg Neuts % (Manual) Lymphocytes % (Manual) Seg Neutrophils # Seg Neutrophils # Man Lymphocytes # (Manual) D-Dimer ABG pH POC ABG pO2 ABG pO2 ABG HCO3 ABG O2 Saturation ABG Base Excess ABG Oxyhemoglobin ABG Sodium ABG Chloride ABG Glucose Oxyhemoglobin Carboxyhemoglobin Sodium Potassium Chloride Carbon Dioxide BUN 20 H Creatinine 0.5 L Glucose 246 H POC Glucose Hemoglobin A1c Ferritin 392.0 H AST ALT Alkaline Phosphatase Lactate Dehydrogenase C-Reactive Protein Total Protein 8.3 H Albumin 3.1 L Arterial Blood Glucose Coronavirus (PCR) Positive A 04/18/21 04/18/21 04/18/21 05:06 05:06 07:36 WBC 11.6 H MCHC RDW 16.1 H Lymph % (Auto) Lymph # (Auto) Baso # (Auto) Seg Neutrophils % Seg Neuts % (Manual) Lymphocytes % (Manual) Seg Neutrophils # Seg Neutrophils # Man Lymphocytes # (Manual) D-Dimer ABG pH POC ABG pO2 ABG pO2 ABG HCO3 ABG O2 Saturation ABG Base Excess ABG Oxyhemoglobin ABG Sodium ABG Chloride ABG Glucose Oxyhemoglobin Carboxyhemoglobin Sodium Potassium 5.2 H Chloride Carbon Dioxide BUN 22 H Creatinine 0.5 L Glucose 315 H POC Glucose Hemoglobin A1c 8.5 H Ferritin AST ALT Alkaline Phosphatase Lactate Dehydrogenase C-Reactive Protein Total Protein Albumin 3.3 L Arterial Blood Glucose Coronavirus (PCR) 04/18/21 04/18/21 04/18/21 11:59 16:43 23:24 WBC MCHC RDW Lymph % (Auto) Lymph # (Auto) Baso # (Auto) Seg Neutrophils % Seg Neuts % (Manual) Lymphocytes % (Manual) Seg Neutrophils # Seg Neutrophils # Man Lymphocytes # (Manual) D-Dimer ABG pH POC ABG pO2 ABG pO2 ABG HCO3 ABG O2 Saturation ABG Base Excess ABG Oxyhemoglobin ABG Sodium ABG Chloride ABG Glucose Oxyhemoglobin Carboxyhemoglobin Sodium Potassium Chloride Carbon Dioxide BUN Creatinine Glucose POC Glucose 284 H 273 H 290 H Hemoglobin A1c Ferritin AST ALT Alkaline Phosphatase Lactate Dehydrogenase C-Reactive Protein Total Protein Albumin Arterial Blood Glucose Coronavirus (PCR) 04/19/21 04/19/21 04/19/21 04:19 04:19 08:10 WBC MCHC RDW 15.7 H Lymph % (Auto) Lymph # (Auto) Baso # (Auto) Seg Neutrophils % Seg Neuts % (Manual) Lymphocytes % (Manual) Seg Neutrophils # Seg Neutrophils # Man Lymphocytes # (Manual) D-Dimer ABG pH POC ABG pO2 ABG pO2 ABG HCO3 ABG O2 Saturation ABG Base Excess ABG Oxyhemoglobin ABG Sodium ABG Chloride ABG Glucose Oxyhemoglobin Carboxyhemoglobin Sodium Potassium Chloride Carbon Dioxide BUN 27 H Creatinine 0.4 L Glucose 184 H POC Glucose 194 H Hemoglobin A1c Ferritin AST ALT Alkaline Phosphatase Lactate Dehydrogenase C-Reactive Protein Total Protein Albumin 3.1 L Arterial Blood Glucose Coronavirus (PCR) 04/19/21 04/19/21 04/19/21 11:38 16:25 22:04 WBC MCHC RDW Lymph % (Auto) Lymph # (Auto) Baso # (Auto) Seg Neutrophils % Seg Neuts % (Manual) Lymphocytes % (Manual) Seg Neutrophils # Seg Neutrophils # Man Lymphocytes # (Manual) D-Dimer ABG pH POC ABG pO2 ABG pO2 ABG HCO3 ABG O2 Saturation ABG Base Excess ABG Oxyhemoglobin ABG Sodium ABG Chloride ABG Glucose Oxyhemoglobin Carboxyhemoglobin Sodium Potassium Chloride Carbon Dioxide BUN Creatinine Glucose POC Glucose 224 H 297 H 251 H Hemoglobin A1c Ferritin AST ALT Alkaline Phosphatase Lactate Dehydrogenase C-Reactive Protein Total Protein Albumin Arterial Blood Glucose Coronavirus (PCR) 04/20/21 04/20/21 04/20/21 05:28 08:43 16:21 WBC MCHC RDW Lymph % (Auto) Lymph # (Auto) Baso # (Auto) Seg Neutrophils % Seg Neuts % (Manual) Lymphocytes % (Manual) Seg Neutrophils # Seg Neutrophils # Man Lymphocytes # (Manual) D-Dimer ABG pH POC ABG pO2 ABG pO2 ABG HCO3 ABG O2 Saturation ABG Base Excess ABG Oxyhemoglobin ABG Sodium ABG Chloride ABG Glucose Oxyhemoglobin Carboxyhemoglobin Sodium Potassium Chloride Carbon Dioxide BUN 27 H Creatinine Glucose 192 H POC Glucose 173 H 253 H Hemoglobin A1c Ferritin AST ALT Alkaline Phosphatase Lactate Dehydrogenase C-Reactive Protein Total Protein Albumin 3.0 L Arterial Blood Glucose Coronavirus (PCR) 04/21/21 04/21/21 04/21/21 07:58 12:05 16:08 WBC MCHC RDW Lymph % (Auto) Lymph # (Auto) Baso # (Auto) Seg Neutrophils % Seg Neuts % (Manual) Lymphocytes % (Manual) Seg Neutrophils # Seg Neutrophils # Man Lymphocytes # (Manual) D-Dimer ABG pH POC ABG pO2 ABG pO2 ABG HCO3 ABG O2 Saturation ABG Base Excess ABG Oxyhemoglobin ABG Sodium ABG Chloride ABG Glucose Oxyhemoglobin Carboxyhemoglobin Sodium Potassium Chloride Carbon Dioxide BUN Creatinine Glucose POC Glucose 140 H 252 H 214 H Hemoglobin A1c Ferritin AST ALT Alkaline Phosphatase Lactate Dehydrogenase C-Reactive Protein Total Protein Albumin Arterial Blood Glucose Coronavirus (PCR) 04/21/21 04/22/21 04/22/21 21:42 08:37 12:01 WBC MCHC RDW Lymph % (Auto) Lymph # (Auto) Baso # (Auto) Seg Neutrophils % Seg Neuts % (Manual) Lymphocytes % (Manual) Seg Neutrophils # Seg Neutrophils # Man Lymphocytes # (Manual) D-Dimer ABG pH 7.457 H POC ABG pO2 49.4 L ABG pO2 ABG HCO3 ABG O2 Saturation ABG Base Excess ABG Oxyhemoglobin 85.6 L ABG Sodium ABG Chloride ABG Glucose 121 H Oxyhemoglobin Carboxyhemoglobin 0.3 L Sodium Potassium Chloride Carbon Dioxide BUN Creatinine Glucose POC Glucose 162 H 227 H Hemoglobin A1c Ferritin AST ALT Alkaline Phosphatase Lactate Dehydrogenase C-Reactive Protein Total Protein Albumin Arterial Blood Glucose 121 H Coronavirus (PCR) 04/22/21 04/22/21 04/23/21 16:26 22:23 04:52 WBC MCHC RDW 15.7 H Lymph % (Auto) Lymph # (Auto) Baso # (Auto) Seg Neutrophils % Seg Neuts % (Manual) Lymphocytes % (Manual) Seg Neutrophils # Seg Neutrophils # Man Lymphocytes # (Manual) D-Dimer ABG pH POC ABG pO2 ABG pO2 ABG HCO3 ABG O2 Saturation ABG Base Excess ABG Oxyhemoglobin ABG Sodium ABG Chloride ABG Glucose Oxyhemoglobin Carboxyhemoglobin Sodium Potassium Chloride Carbon Dioxide BUN Creatinine Glucose POC Glucose 200 H 136 H Hemoglobin A1c Ferritin AST ALT Alkaline Phosphatase Lactate Dehydrogenase C-Reactive Protein Total Protein Albumin Arterial Blood Glucose Coronavirus (PCR) 04/23/21 04/23/21 04/23/21 04:52 12:06 17:41 WBC MCHC RDW Lymph % (Auto) Lymph # (Auto) Baso # (Auto) Seg Neutrophils % Seg Neuts % (Manual) Lymphocytes % (Manual) Seg Neutrophils # Seg Neutrophils # Man Lymphocytes # (Manual) D-Dimer ABG pH POC ABG pO2 ABG pO2 ABG HCO3 ABG O2 Saturation ABG Base Excess ABG Oxyhemoglobin ABG Sodium ABG Chloride ABG Glucose Oxyhemoglobin Carboxyhemoglobin Sodium 136 L Potassium Chloride 97.7 L Carbon Dioxide BUN 23 H Creatinine Glucose 101 H POC Glucose 202 H 169 H Hemoglobin A1c Ferritin AST 46 H ALT Alkaline Phosphatase Lactate Dehydrogenase C-Reactive Protein Total Protein Albumin 3.3 L Arterial Blood Glucose Coronavirus (PCR) 04/23/21 04/24/21 04/24/21 23:08 05:17 08:38 WBC MCHC RDW Lymph % (Auto) Lymph # (Auto) Baso # (Auto) Seg Neutrophils % Seg Neuts % (Manual) Lymphocytes % (Manual) Seg Neutrophils # Seg Neutrophils # Man Lymphocytes # (Manual) D-Dimer ABG pH POC ABG pO2 ABG pO2 ABG HCO3 ABG O2 Saturation ABG Base Excess ABG Oxyhemoglobin ABG Sodium ABG Chloride ABG Glucose Oxyhemoglobin Carboxyhemoglobin Sodium Potassium Chloride Carbon Dioxide BUN Creatinine Glucose POC Glucose 111 H 108 H 126 H Hemoglobin A1c Ferritin AST ALT Alkaline Phosphatase Lactate Dehydrogenase C-Reactive Protein Total Protein Albumin Arterial Blood Glucose Coronavirus (PCR) 04/24/21 04/24/21 04/24/21 11:54 17:57 21:23 WBC MCHC RDW Lymph % (Auto) Lymph # (Auto) Baso # (Auto) Seg Neutrophils % Seg Neuts % (Manual) Lymphocytes % (Manual) Seg Neutrophils # Seg Neutrophils # Man Lymphocytes # (Manual) D-Dimer ABG pH POC ABG pO2 ABG pO2 ABG HCO3 ABG O2 Saturation ABG Base Excess ABG Oxyhemoglobin ABG Sodium ABG Chloride ABG Glucose Oxyhemoglobin Carboxyhemoglobin Sodium Potassium Chloride Carbon Dioxide BUN Creatinine Glucose POC Glucose 147 H 177 H 138 H Hemoglobin A1c Ferritin AST ALT Alkaline Phosphatase Lactate Dehydrogenase C-Reactive Protein Total Protein Albumin Arterial Blood Glucose Coronavirus (PCR) 04/25/21 04/25/21 04/25/21 07:06 11:23 15:43 WBC MCHC RDW Lymph % (Auto) Lymph # (Auto) Baso # (Auto) Seg Neutrophils % Seg Neuts % (Manual) Lymphocytes % (Manual) Seg Neutrophils # Seg Neutrophils # Man Lymphocytes # (Manual) D-Dimer ABG pH POC ABG pO2 ABG pO2 ABG HCO3 ABG O2 Saturation ABG Base Excess ABG Oxyhemoglobin ABG Sodium ABG Chloride ABG Glucose Oxyhemoglobin Carboxyhemoglobin Sodium Potassium Chloride Carbon Dioxide BUN Creatinine Glucose POC Glucose 147 H 169 H 227 H Hemoglobin A1c Ferritin AST ALT Alkaline Phosphatase Lactate Dehydrogenase C-Reactive Protein Total Protein Albumin Arterial Blood Glucose Coronavirus (PCR) 04/25/21 04/26/21 04/26/21 21:22 02:45 05:15 WBC MCHC RDW Lymph % (Auto) Lymph # (Auto) Baso # (Auto) Seg Neutrophils % Seg Neuts % (Manual) Lymphocytes % (Manual) Seg Neutrophils # Seg Neutrophils # Man Lymphocytes # (Manual) D-Dimer ABG pH POC ABG pO2 70.7 L ABG pO2 ABG HCO3 ABG O2 Saturation ABG Base Excess ABG Oxyhemoglobin 93.0 L ABG Sodium 132.7 L ABG Chloride ABG Glucose 115 H Oxyhemoglobin Carboxyhemoglobin Sodium Potassium Chloride 95.8 L Carbon Dioxide 32 H BUN 20 H Creatinine Glucose 102 H POC Glucose 196 H Hemoglobin A1c Ferritin AST ALT Alkaline Phosphatase Lactate Dehydrogenase C-Reactive Protein Total Protein Albumin Arterial Blood Glucose 115 H Coronavirus (PCR) 04/26/21 04/26/21 04/26/21 11:49 16:09 21:07 WBC MCHC RDW Lymph % (Auto) Lymph # (Auto) Baso # (Auto) Seg Neutrophils % Seg Neuts % (Manual) Lymphocytes % (Manual) Seg Neutrophils # Seg Neutrophils # Man Lymphocytes # (Manual) D-Dimer ABG pH POC ABG pO2 ABG pO2 ABG HCO3 ABG O2 Saturation ABG Base Excess ABG Oxyhemoglobin ABG Sodium ABG Chloride ABG Glucose Oxyhemoglobin Carboxyhemoglobin Sodium Potassium Chloride Carbon Dioxide BUN Creatinine Glucose POC Glucose 114 H 188 H 136 H Hemoglobin A1c Ferritin AST ALT Alkaline Phosphatase Lactate Dehydrogenase C-Reactive Protein Total Protein Albumin Arterial Blood Glucose Coronavirus (PCR) 04/27/21 04/27/21 04/28/21 17:34 22:12 08:26 WBC MCHC RDW Lymph % (Auto) Lymph # (Auto) Baso # (Auto) Seg Neutrophils % Seg Neuts % (Manual) Lymphocytes % (Manual) Seg Neutrophils # Seg Neutrophils # Man Lymphocytes # (Manual) D-Dimer ABG pH POC ABG pO2 ABG pO2 ABG HCO3 ABG O2 Saturation ABG Base Excess ABG Oxyhemoglobin ABG Sodium ABG Chloride ABG Glucose Oxyhemoglobin Carboxyhemoglobin Sodium Potassium Chloride Carbon Dioxide BUN Creatinine Glucose POC Glucose 128 H 159 H 69 L Hemoglobin A1c Ferritin AST ALT Alkaline Phosphatase Lactate Dehydrogenase C-Reactive Protein Total Protein Albumin Arterial Blood Glucose Coronavirus (PCR) 04/28/21 04/28/21 04/29/21 12:22 21:11 06:05 WBC MCHC RDW Lymph % (Auto) Lymph # (Auto) Baso # (Auto) Seg Neutrophils % Seg Neuts % (Manual) Lymphocytes % (Manual) Seg Neutrophils # Seg Neutrophils # Man Lymphocytes # (Manual) D-Dimer ABG pH POC ABG pO2 ABG pO2 ABG HCO3 ABG O2 Saturation ABG Base Excess ABG Oxyhemoglobin ABG Sodium ABG Chloride ABG Glucose Oxyhemoglobin Carboxyhemoglobin Sodium 132 L Potassium Chloride 94.4 L Carbon Dioxide BUN Creatinine 0.2 L D Glucose 140 H POC Glucose 141 H 171 H Hemoglobin A1c Ferritin AST ALT Alkaline Phosphatase Lactate Dehydrogenase C-Reactive Protein Total Protein Albumin Arterial Blood Glucose Coronavirus (PCR) 04/29/21 04/29/21 04/29/21 06:05 07:24 11:36 WBC MCHC 35 H RDW 15.9 H Lymph % (Auto) Lymph # (Auto) Baso # (Auto) Seg Neutrophils % Seg Neuts % (Manual) Lymphocytes % (Manual) Seg Neutrophils # Seg Neutrophils # Man Lymphocytes # (Manual) D-Dimer ABG pH POC ABG pO2 ABG pO2 ABG HCO3 ABG O2 Saturation ABG Base Excess ABG Oxyhemoglobin ABG Sodium ABG Chloride ABG Glucose Oxyhemoglobin Carboxyhemoglobin Sodium Potassium Chloride Carbon Dioxide BUN Creatinine Glucose POC Glucose 141 H 220 H Hemoglobin A1c Ferritin AST ALT Alkaline Phosphatase Lactate Dehydrogenase C-Reactive Protein Total Protein Albumin Arterial Blood Glucose Coronavirus (PCR) 04/29/21 04/29/21 04/29/21 14:23 15:30 17:06 WBC MCHC RDW Lymph % (Auto) Lymph # (Auto) Baso # (Auto) Seg Neutrophils % Seg Neuts % (Manual) Lymphocytes % (Manual) Seg Neutrophils # Seg Neutrophils # Man Lymphocytes # (Manual) D-Dimer ABG pH POC ABG pO2 ABG pO2 52.6 L ABG HCO3 ABG O2 Saturation 86.4 L ABG Base Excess ABG Oxyhemoglobin ABG Sodium ABG Chloride ABG Glucose Oxyhemoglobin 84.6 L Carboxyhemoglobin Sodium Potassium Chloride Carbon Dioxide BUN Creatinine Glucose POC Glucose 173 H 158 H Hemoglobin A1c Ferritin AST ALT Alkaline Phosphatase Lactate Dehydrogenase C-Reactive Protein Total Protein Albumin Arterial Blood Glucose Coronavirus (PCR) 04/29/21 04/30/21 04/30/21 21:27 07:16 08:00 WBC MCHC RDW 16.1 H Lymph % (Auto) Lymph # (Auto) Baso # (Auto) Seg Neutrophils % Seg Neuts % (Manual) Lymphocytes % (Manual) Seg Neutrophils # Seg Neutrophils # Man Lymphocytes # (Manual) D-Dimer ABG pH POC ABG pO2 ABG pO2 ABG HCO3 ABG O2 Saturation ABG Base Excess ABG Oxyhemoglobin ABG Sodium ABG Chloride ABG Glucose Oxyhemoglobin Carboxyhemoglobin Sodium Potassium Chloride Carbon Dioxide BUN Creatinine Glucose POC Glucose 244 H 175 H Hemoglobin A1c Ferritin AST ALT Alkaline Phosphatase Lactate Dehydrogenase C-Reactive Protein Total Protein Albumin Arterial Blood Glucose Coronavirus (PCR) 04/30/21 04/30/21 04/30/21 08:00 08:00 11:03 WBC MCHC RDW Lymph % (Auto) Lymph # (Auto) Baso # (Auto) Seg Neutrophils % Seg Neuts % (Manual) Lymphocytes % (Manual) Seg Neutrophils # Seg Neutrophils # Man Lymphocytes # (Manual) D-Dimer 1796.87 H ABG pH POC ABG pO2 ABG pO2 ABG HCO3 ABG O2 Saturation ABG Base Excess ABG Oxyhemoglobin ABG Sodium ABG Chloride ABG Glucose Oxyhemoglobin Carboxyhemoglobin Sodium 135 L Potassium Chloride 96.3 L Carbon Dioxide BUN Creatinine 0.2 L Glucose 153 H POC Glucose 183 H Hemoglobin A1c Ferritin AST 41 H ALT 76 H Alkaline Phosphatase 160 H Lactate Dehydrogenase 522 H C-Reactive Protein Total Protein 6.1 L Albumin 3.1 L Arterial Blood Glucose Coronavirus (PCR) 04/30/21 04/30/21 05/01/21 17:04 22:17 05:39 WBC MCHC RDW Lymph % (Auto) Lymph # (Auto) Baso # (Auto) Seg Neutrophils % Seg Neuts % (Manual) Lymphocytes % (Manual) Seg Neutrophils # Seg Neutrophils # Man Lymphocytes # (Manual) D-Dimer ABG pH POC ABG pO2 ABG pO2 ABG HCO3 ABG O2 Saturation ABG Base Excess ABG Oxyhemoglobin ABG Sodium ABG Chloride ABG Glucose Oxyhemoglobin Carboxyhemoglobin Sodium 133 L Potassium Chloride 92.1 L Carbon Dioxide BUN 24 H Creatinine 0.4 L D Glucose 269 H POC Glucose 167 H 208 H Hemoglobin A1c Ferritin AST ALT 66 H Alkaline Phosphatase 142 H Lactate Dehydrogenase C-Reactive Protein Total Protein Albumin 3.2 L Arterial Blood Glucose Coronavirus (PCR) 05/01/21 05/01/21 05/01/21 05:39 05:39 07:45 WBC MCHC RDW 16.0 H Lymph % (Auto) Lymph # (Auto) Baso # (Auto) Seg Neutrophils % Seg Neuts % (Manual) Lymphocytes % (Manual) Seg Neutrophils # Seg Neutrophils # Man Lymphocytes # (Manual) D-Dimer 3984.95 H ABG pH POC ABG pO2 ABG pO2 ABG HCO3 ABG O2 Saturation ABG Base Excess ABG Oxyhemoglobin ABG Sodium ABG Chloride ABG Glucose Oxyhemoglobin Carboxyhemoglobin Sodium Potassium Chloride Carbon Dioxide BUN Creatinine Glucose POC Glucose 229 H Hemoglobin A1c Ferritin AST ALT Alkaline Phosphatase Lactate Dehydrogenase C-Reactive Protein Total Protein Albumin Arterial Blood Glucose Coronavirus (PCR) 05/01/21 05/01/21 05/01/21 12:10 15:46 21:06 WBC MCHC RDW Lymph % (Auto) Lymph # (Auto) Baso # (Auto) Seg Neutrophils % Seg Neuts % (Manual) Lymphocytes % (Manual) Seg Neutrophils # Seg Neutrophils # Man Lymphocytes # (Manual) D-Dimer ABG pH POC ABG pO2 ABG pO2 ABG HCO3 ABG O2 Saturation ABG Base Excess ABG Oxyhemoglobin ABG Sodium ABG Chloride ABG Glucose Oxyhemoglobin Carboxyhemoglobin Sodium Potassium Chloride Carbon Dioxide BUN Creatinine Glucose POC Glucose 296 H 279 H 232 H Hemoglobin A1c Ferritin AST ALT Alkaline Phosphatase Lactate Dehydrogenase C-Reactive Protein Total Protein Albumin Arterial Blood Glucose Coronavirus (PCR) 05/02/21 05/02/21 05/02/21 04:55 04:55 04:55 WBC MCHC RDW 16.1 H Lymph % (Auto) Lymph # (Auto) Baso # (Auto) Seg Neutrophils % Seg Neuts % (Manual) Lymphocytes % (Manual) Seg Neutrophils # Seg Neutrophils # Man Lymphocytes # (Manual) D-Dimer 1401.08 H ABG pH POC ABG pO2 ABG pO2 ABG HCO3 ABG O2 Saturation ABG Base Excess ABG Oxyhemoglobin ABG Sodium ABG Chloride ABG Glucose Oxyhemoglobin Carboxyhemoglobin Sodium 131 L Potassium Chloride 95.5 L Carbon Dioxide BUN 20 H Creatinine 0.3 L Glucose 288 H POC Glucose Hemoglobin A1c Ferritin AST ALT Alkaline Phosphatase Lactate Dehydrogenase C-Reactive Protein Total Protein 6.0 L Albumin 3.1 L Arterial Blood Glucose Coronavirus (PCR) 05/02/21 05/02/21 05/02/21 07:53 11:45 15:25 WBC MCHC RDW Lymph % (Auto) Lymph # (Auto) Baso # (Auto) Seg Neutrophils % Seg Neuts % (Manual) Lymphocytes % (Manual) Seg Neutrophils # Seg Neutrophils # Man Lymphocytes # (Manual) D-Dimer ABG pH POC ABG pO2 ABG pO2 ABG HCO3 ABG O2 Saturation ABG Base Excess ABG Oxyhemoglobin ABG Sodium ABG Chloride ABG Glucose Oxyhemoglobin Carboxyhemoglobin Sodium Potassium Chloride Carbon Dioxide BUN Creatinine Glucose POC Glucose 180 H 228 H 275 H Hemoglobin A1c Ferritin AST ALT Alkaline Phosphatase Lactate Dehydrogenase C-Reactive Protein Total Protein Albumin Arterial Blood Glucose Coronavirus (PCR) 05/02/21 05/03/21 05/03/21 22:56 04:30 04:49 WBC MCHC RDW Lymph % (Auto) Lymph # (Auto) Baso # (Auto) Seg Neutrophils % Seg Neuts % (Manual) Lymphocytes % (Manual) Seg Neutrophils # Seg Neutrophils # Man Lymphocytes # (Manual) D-Dimer ABG pH 7.229 L POC ABG pO2 65.3 L ABG pO2 ABG HCO3 ABG O2 Saturation ABG Base Excess ABG Oxyhemoglobin 87.8 L ABG Sodium 133.0 L ABG Chloride 97.0 L ABG Glucose 403 H Oxyhemoglobin Carboxyhemoglobin Sodium 130 L Potassium Chloride 94.9 L Carbon Dioxide BUN 20 H Creatinine 0.5 L D Glucose 359 H POC Glucose 293 H Hemoglobin A1c Ferritin AST 54 H ALT 75 H Alkaline Phosphatase 138 H Lactate Dehydrogenase C-Reactive Protein Total Protein Albumin 3.6 L Arterial Blood Glucose 403 H Coronavirus (PCR) 05/03/21 05/03/21 05/03/21 05:27 11:26 17:57 WBC MCHC RDW Lymph % (Auto) Lymph # (Auto) Baso # (Auto) Seg Neutrophils % Seg Neuts % (Manual) Lymphocytes % (Manual) Seg Neutrophils # Seg Neutrophils # Man Lymphocytes # (Manual) D-Dimer ABG pH POC ABG pO2 ABG pO2 ABG HCO3 ABG O2 Saturation ABG Base Excess ABG Oxyhemoglobin ABG Sodium ABG Chloride ABG Glucose Oxyhemoglobin Carboxyhemoglobin Sodium Potassium Chloride Carbon Dioxide BUN Creatinine Glucose POC Glucose 361 H 297 H 226 H Hemoglobin A1c Ferritin AST ALT Alkaline Phosphatase Lactate Dehydrogenase C-Reactive Protein Total Protein Albumin Arterial Blood Glucose Coronavirus (PCR) 05/03/21 05/04/21 05/04/21 23:12 05:12 07:30 WBC MCHC RDW Lymph % (Auto) Lymph # (Auto) Baso # (Auto) Seg Neutrophils % Seg Neuts % (Manual) Lymphocytes % (Manual) Seg Neutrophils # Seg Neutrophils # Man Lymphocytes # (Manual) D-Dimer ABG pH POC ABG pO2 ABG pO2 ABG HCO3 ABG O2 Saturation ABG Base Excess ABG Oxyhemoglobin ABG Sodium ABG Chloride ABG Glucose Oxyhemoglobin Carboxyhemoglobin Sodium Potassium Chloride Carbon Dioxide BUN Creatinine Glucose POC Glucose 282 H 285 H 254 H Hemoglobin A1c Ferritin AST ALT Alkaline Phosphatase Lactate Dehydrogenase C-Reactive Protein Total Protein Albumin Arterial Blood Glucose Coronavirus (PCR) 05/04/21 05/04/21 05/04/21 08:58 11:45 16:07 WBC MCHC RDW Lymph % (Auto) Lymph # (Auto) Baso # (Auto) Seg Neutrophils % Seg Neuts % (Manual) Lymphocytes % (Manual) Seg Neutrophils # Seg Neutrophils # Man Lymphocytes # (Manual) D-Dimer ABG pH POC ABG pO2 ABG pO2 ABG HCO3 ABG O2 Saturation ABG Base Excess ABG Oxyhemoglobin ABG Sodium ABG Chloride ABG Glucose Oxyhemoglobin Carboxyhemoglobin Sodium 134 L Potassium Chloride Carbon Dioxide BUN 20 H Creatinine 0.3 L Glucose 267 H POC Glucose 244 H 297 H Hemoglobin A1c Ferritin AST ALT Alkaline Phosphatase Lactate Dehydrogenase C-Reactive Protein Total Protein 6.0 L Albumin 3.2 L Arterial Blood Glucose Coronavirus (PCR) 05/04/21 05/05/21 05/05/21 23:32 05:00 05:13 WBC MCHC RDW Lymph % (Auto) Lymph # (Auto) Baso # (Auto) Seg Neutrophils % Seg Neuts % (Manual) Lymphocytes % (Manual) Seg Neutrophils # Seg Neutrophils # Man Lymphocytes # (Manual) D-Dimer ABG pH POC ABG pO2 ABG pO2 ABG HCO3 ABG O2 Saturation ABG Base Excess ABG Oxyhemoglobin ABG Sodium ABG Chloride ABG Glucose Oxyhemoglobin Carboxyhemoglobin Sodium 132 L Potassium Chloride 96.4 L Carbon Dioxide BUN 22 H Creatinine 0.3 L Glucose 228 H POC Glucose 154 H 260 H Hemoglobin A1c Ferritin AST ALT 67 H Alkaline Phosphatase Lactate Dehydrogenase C-Reactive Protein Total Protein 6.1 L Albumin 3.2 L Arterial Blood Glucose Coronavirus (PCR) 05/05/21 05/05/21 05/05/21 11:32 17:49 23:07 WBC MCHC RDW Lymph % (Auto) Lymph # (Auto) Baso # (Auto) Seg Neutrophils % Seg Neuts % (Manual) Lymphocytes % (Manual) Seg Neutrophils # Seg Neutrophils # Man Lymphocytes # (Manual) D-Dimer ABG pH POC ABG pO2 ABG pO2 ABG HCO3 ABG O2 Saturation ABG Base Excess ABG Oxyhemoglobin ABG Sodium ABG Chloride ABG Glucose Oxyhemoglobin Carboxyhemoglobin Sodium Potassium Chloride Carbon Dioxide BUN Creatinine Glucose POC Glucose 279 H 308 H 213 H Hemoglobin A1c Ferritin AST ALT Alkaline Phosphatase Lactate Dehydrogenase C-Reactive Protein Total Protein Albumin Arterial Blood Glucose Coronavirus (PCR) 05/06/21 05/06/21 05/06/21 05:00 05:00 05:20 WBC MCHC RDW 16.8 H Lymph % (Auto) Lymph # (Auto) Baso # (Auto) Seg Neutrophils % Seg Neuts % (Manual) 99.0 H Lymphocytes % (Manual) Seg Neutrophils # Seg Neutrophils # Man 10.9 H Lymphocytes # (Manual) 0.0 L D-Dimer ABG pH POC ABG pO2 ABG pO2 ABG HCO3 ABG O2 Saturation ABG Base Excess ABG Oxyhemoglobin ABG Sodium ABG Chloride ABG Glucose Oxyhemoglobin Carboxyhemoglobin Sodium 133 L Potassium Chloride Carbon Dioxide BUN 21 H Creatinine 0.3 L Glucose 259 H POC Glucose 308 H Hemoglobin A1c Ferritin AST ALT Alkaline Phosphatase Lactate Dehydrogenase C-Reactive Protein Total Protein Albumin 3.2 L Arterial Blood Glucose Coronavirus (PCR) 05/06/21 05/06/21 05/06/21 11:24 17:54 21:32 WBC MCHC RDW Lymph % (Auto) Lymph # (Auto) Baso # (Auto) Seg Neutrophils % Seg Neuts % (Manual) Lymphocytes % (Manual) Seg Neutrophils # Seg Neutrophils # Man Lymphocytes # (Manual) D-Dimer ABG pH POC ABG pO2 ABG pO2 ABG HCO3 ABG O2 Saturation ABG Base Excess ABG Oxyhemoglobin ABG Sodium ABG Chloride ABG Glucose Oxyhemoglobin Carboxyhemoglobin Sodium Potassium Chloride Carbon Dioxide BUN Creatinine Glucose POC Glucose 262 H 124 H 246 H Hemoglobin A1c Ferritin AST ALT Alkaline Phosphatase Lactate Dehydrogenase C-Reactive Protein Total Protein Albumin Arterial Blood Glucose Coronavirus (PCR) 05/06/21 05/07/21 05/07/21 23:10 04:54 04:54 WBC MCHC RDW Lymph % (Auto) Lymph # (Auto) Baso # (Auto) Seg Neutrophils % Seg Neuts % (Manual) Lymphocytes % (Manual) Seg Neutrophils # Seg Neutrophils # Man Lymphocytes # (Manual) D-Dimer 1609.28 H ABG pH POC ABG pO2 ABG pO2 ABG HCO3 ABG O2 Saturation ABG Base Excess ABG Oxyhemoglobin ABG Sodium ABG Chloride ABG Glucose Oxyhemoglobin Carboxyhemoglobin Sodium 136 L Potassium Chloride Carbon Dioxide BUN 23 H Creatinine 0.3 L Glucose 110 H POC Glucose 249 H Hemoglobin A1c Ferritin AST ALT Alkaline Phosphatase Lactate Dehydrogenase C-Reactive Protein Total Protein 6.2 L Albumin 3.0 L Arterial Blood Glucose Coronavirus (PCR) 05/07/21 05/07/21 05/07/21 04:54 04:54 11:41 WBC MCHC RDW Lymph % (Auto) Lymph # (Auto) Baso # (Auto) Seg Neutrophils % Seg Neuts % (Manual) Lymphocytes % (Manual) Seg Neutrophils # Seg Neutrophils # Man Lymphocytes # (Manual) D-Dimer ABG pH POC ABG pO2 ABG pO2 ABG HCO3 ABG O2 Saturation ABG Base Excess ABG Oxyhemoglobin ABG Sodium ABG Chloride ABG Glucose Oxyhemoglobin Carboxyhemoglobin Sodium Potassium Chloride Carbon Dioxide BUN Creatinine Glucose POC Glucose 118 H Hemoglobin A1c Ferritin 296.1 H AST ALT Alkaline Phosphatase Lactate Dehydrogenase 724 H C-Reactive Protein Total Protein Albumin Arterial Blood Glucose Coronavirus (PCR) 05/07/21 05/07/21 05/08/21 16:43 22:34 06:44 WBC MCHC RDW Lymph % (Auto) Lymph # (Auto) Baso # (Auto) Seg Neutrophils % Seg Neuts % (Manual) Lymphocytes % (Manual) Seg Neutrophils # Seg Neutrophils # Man Lymphocytes # (Manual) D-Dimer ABG pH POC ABG pO2 ABG pO2 ABG HCO3 ABG O2 Saturation ABG Base Excess ABG Oxyhemoglobin ABG Sodium ABG Chloride ABG Glucose Oxyhemoglobin Carboxyhemoglobin Sodium Potassium Chloride Carbon Dioxide BUN Creatinine Glucose POC Glucose 159 H 233 H 235 H Hemoglobin A1c Ferritin AST ALT Alkaline Phosphatase Lactate Dehydrogenase C-Reactive Protein Total Protein Albumin Arterial Blood Glucose Coronavirus (PCR) 05/08/21 05/08/21 05/08/21 07:49 11:56 17:13 WBC MCHC RDW Lymph % (Auto) Lymph # (Auto) Baso # (Auto) Seg Neutrophils % Seg Neuts % (Manual) Lymphocytes % (Manual) Seg Neutrophils # Seg Neutrophils # Man Lymphocytes # (Manual) D-Dimer ABG pH POC ABG pO2 ABG pO2 ABG HCO3 ABG O2 Saturation ABG Base Excess ABG Oxyhemoglobin ABG Sodium ABG Chloride ABG Glucose Oxyhemoglobin Carboxyhemoglobin Sodium Potassium Chloride Carbon Dioxide BUN Creatinine Glucose POC Glucose 219 H 184 H 182 H Hemoglobin A1c Ferritin AST ALT Alkaline Phosphatase Lactate Dehydrogenase C-Reactive Protein Total Protein Albumin Arterial Blood Glucose Coronavirus (PCR) 05/08/21 05/09/21 05/09/21 23:35 05:20 05:20 WBC MCHC RDW Lymph % (Auto) Lymph # (Auto) Baso # (Auto) Seg Neutrophils % Seg Neuts % (Manual) Lymphocytes % (Manual) Seg Neutrophils # Seg Neutrophils # Man Lymphocytes # (Manual) D-Dimer 1003.87 H ABG pH POC ABG pO2 ABG pO2 ABG HCO3 ABG O2 Saturation ABG Base Excess ABG Oxyhemoglobin ABG Sodium ABG Chloride ABG Glucose Oxyhemoglobin Carboxyhemoglobin Sodium Potassium Chloride Carbon Dioxide BUN Creatinine Glucose POC Glucose 198 H Hemoglobin A1c Ferritin 378.7 H AST ALT Alkaline Phosphatase Lactate Dehydrogenase C-Reactive Protein Total Protein Albumin Arterial Blood Glucose Coronavirus (PCR) 05/09/21 05/09/21 05/09/21 05:20 06:04 12:53 WBC MCHC RDW Lymph % (Auto) Lymph # (Auto) Baso # (Auto) Seg Neutrophils % Seg Neuts % (Manual) Lymphocytes % (Manual) Seg Neutrophils # Seg Neutrophils # Man Lymphocytes # (Manual) D-Dimer ABG pH POC ABG pO2 ABG pO2 ABG HCO3 ABG O2 Saturation ABG Base Excess ABG Oxyhemoglobin ABG Sodium ABG Chloride ABG Glucose Oxyhemoglobin Carboxyhemoglobin Sodium Potassium Chloride Carbon Dioxide BUN Creatinine Glucose POC Glucose 159 H 180 H Hemoglobin A1c Ferritin AST ALT Alkaline Phosphatase Lactate Dehydrogenase 558 H C-Reactive Protein 2.40 H Total Protein Albumin Arterial Blood Glucose Coronavirus (PCR) 05/09/21 05/09/21 05/10/21 16:43 21:27 10:18 WBC MCHC RDW Lymph % (Auto) Lymph # (Auto) Baso # (Auto) Seg Neutrophils % Seg Neuts % (Manual) Lymphocytes % (Manual) Seg Neutrophils # Seg Neutrophils # Man Lymphocytes # (Manual) D-Dimer ABG pH POC ABG pO2 ABG pO2 ABG HCO3 ABG O2 Saturation ABG Base Excess ABG Oxyhemoglobin ABG Sodium ABG Chloride ABG Glucose Oxyhemoglobin Carboxyhemoglobin Sodium Potassium Chloride Carbon Dioxide BUN Creatinine Glucose POC Glucose 212 H 285 H 261 H Hemoglobin A1c Ferritin AST ALT Alkaline Phosphatase Lactate Dehydrogenase C-Reactive Protein Total Protein Albumin Arterial Blood Glucose Coronavirus (PCR) 05/10/21 05/10/21 05/11/21 17:58 18:02 00:29 WBC MCHC RDW Lymph % (Auto) Lymph # (Auto) Baso # (Auto) Seg Neutrophils % Seg Neuts % (Manual) Lymphocytes % (Manual) Seg Neutrophils # Seg Neutrophils # Man Lymphocytes # (Manual) D-Dimer ABG pH POC ABG pO2 ABG pO2 ABG HCO3 ABG O2 Saturation ABG Base Excess ABG Oxyhemoglobin ABG Sodium ABG Chloride ABG Glucose Oxyhemoglobin Carboxyhemoglobin Sodium Potassium Chloride Carbon Dioxide BUN Creatinine Glucose POC Glucose 213 H 179 H 149 H Hemoglobin A1c Ferritin AST ALT Alkaline Phosphatase Lactate Dehydrogenase C-Reactive Protein Total Protein Albumin Arterial Blood Glucose Coronavirus (PCR) 05/11/21 05/11/21 05/11/21 05:22 11:32 17:00 WBC 14.9 H MCHC RDW 18.9 H Lymph % (Auto) 4.9 L Lymph # (Auto) 0.7 L Baso # (Auto) 0.2 H Seg Neutrophils % Seg Neuts % (Manual) Lymphocytes % (Manual) Seg Neutrophils # 13.3 H Seg Neutrophils # Man Lymphocytes # (Manual) D-Dimer ABG pH POC ABG pO2 ABG pO2 ABG HCO3 ABG O2 Saturation ABG Base Excess ABG Oxyhemoglobin ABG Sodium ABG Chloride ABG Glucose Oxyhemoglobin Carboxyhemoglobin Sodium Potassium Chloride Carbon Dioxide BUN Creatinine Glucose POC Glucose 162 H 179 H Hemoglobin A1c Ferritin AST ALT Alkaline Phosphatase Lactate Dehydrogenase C-Reactive Protein Total Protein Albumin Arterial Blood Glucose Coronavirus (PCR) 05/11/21 05/11/21 05/11/21 17:00 17:33 22:03 WBC MCHC RDW Lymph % (Auto) Lymph # (Auto) Baso # (Auto) Seg Neutrophils % Seg Neuts % (Manual) Lymphocytes % (Manual) Seg Neutrophils # Seg Neutrophils # Man Lymphocytes # (Manual) D-Dimer ABG pH POC ABG pO2 ABG pO2 ABG HCO3 ABG O2 Saturation ABG Base Excess ABG Oxyhemoglobin ABG Sodium ABG Chloride ABG Glucose Oxyhemoglobin Carboxyhemoglobin Sodium 135 L Potassium Chloride 97.3 L Carbon Dioxide BUN 21 H Creatinine 0.3 L Glucose 133 H POC Glucose 140 H 282 H Hemoglobin A1c Ferritin AST ALT 60 H Alkaline Phosphatase Lactate Dehydrogenase C-Reactive Protein Total Protein Albumin 3.1 L Arterial Blood Glucose Coronavirus (PCR) 05/12/21 05/12/21 05/12/21 04:05 04:05 04:05 WBC MCHC RDW 18.4 H Lymph % (Auto) Lymph # (Auto) Baso # (Auto) Seg Neutrophils % Seg Neuts % (Manual) 94.0 H Lymphocytes % (Manual) 4.0 L Seg Neutrophils # Seg Neutrophils # Man Lymphocytes # (Manual) 0.3 L D-Dimer ABG pH POC ABG pO2 ABG pO2 ABG HCO3 ABG O2 Saturation ABG Base Excess ABG Oxyhemoglobin ABG Sodium ABG Chloride ABG Glucose Oxyhemoglobin Carboxyhemoglobin Sodium 136 L Potassium Chloride Carbon Dioxide BUN 18 H Creatinine 0.2 L Glucose 142 H POC Glucose Hemoglobin A1c Ferritin 350.7 H AST ALT Alkaline Phosphatase Lactate Dehydrogenase 546 H C-Reactive Protein Total Protein 6.1 L Albumin 3.0 L Arterial Blood Glucose Coronavirus (PCR) 05/12/21 05/12/21 05/12/21 05:11 11:17 16:27 WBC MCHC RDW Lymph % (Auto) Lymph # (Auto) Baso # (Auto) Seg Neutrophils % Seg Neuts % (Manual) Lymphocytes % (Manual) Seg Neutrophils # Seg Neutrophils # Man Lymphocytes # (Manual) D-Dimer ABG pH POC ABG pO2 ABG pO2 ABG HCO3 ABG O2 Saturation ABG Base Excess ABG Oxyhemoglobin ABG Sodium ABG Chloride ABG Glucose Oxyhemoglobin Carboxyhemoglobin Sodium Potassium Chloride Carbon Dioxide BUN Creatinine Glucose POC Glucose 152 H 190 H 261 H Hemoglobin A1c Ferritin AST ALT Alkaline Phosphatase Lactate Dehydrogenase C-Reactive Protein Total Protein Albumin Arterial Blood Glucose Coronavirus (PCR) 05/12/21 05/13/21 05/13/21 20:55 11:08 21:41 WBC MCHC RDW Lymph % (Auto) Lymph # (Auto) Baso # (Auto) Seg Neutrophils % Seg Neuts % (Manual) Lymphocytes % (Manual) Seg Neutrophils # Seg Neutrophils # Man Lymphocytes # (Manual) D-Dimer ABG pH POC ABG pO2 ABG pO2 ABG HCO3 ABG O2 Saturation ABG Base Excess ABG Oxyhemoglobin ABG Sodium ABG Chloride ABG Glucose Oxyhemoglobin Carboxyhemoglobin Sodium Potassium Chloride Carbon Dioxide BUN Creatinine Glucose POC Glucose 231 H 106 H 174 H Hemoglobin A1c Ferritin AST ALT Alkaline Phosphatase Lactate Dehydrogenase C-Reactive Protein Total Protein Albumin Arterial Blood Glucose Coronavirus (PCR) 05/14/21 05/14/21 05/14/21 00:53 02:23 06:06 WBC MCHC RDW Lymph % (Auto) Lymph # (Auto) Baso # (Auto) Seg Neutrophils % Seg Neuts % (Manual) Lymphocytes % (Manual) Seg Neutrophils # Seg Neutrophils # Man Lymphocytes # (Manual) D-Dimer ABG pH POC ABG pO2 ABG pO2 130.3 H ABG HCO3 30.6 H ABG O2 Saturation ABG Base Excess 4.9 H ABG Oxyhemoglobin ABG Sodium ABG Chloride ABG Glucose Oxyhemoglobin Carboxyhemoglobin Sodium Potassium Chloride Carbon Dioxide BUN Creatinine Glucose POC Glucose 229 H 119 H Hemoglobin A1c Ferritin AST ALT Alkaline Phosphatase Lactate Dehydrogenase C-Reactive Protein Total Protein Albumin Arterial Blood Glucose Coronavirus (PCR) 05/14/21 05/14/21 05/14/21 07:13 07:13 07:13 WBC MCHC RDW Lymph % (Auto) Lymph # (Auto) Baso # (Auto) Seg Neutrophils % Seg Neuts % (Manual) Lymphocytes % (Manual) Seg Neutrophils # Seg Neutrophils # Man Lymphocytes # (Manual) D-Dimer 712.80 H ABG pH POC ABG pO2 ABG pO2 ABG HCO3 ABG O2 Saturation ABG Base Excess ABG Oxyhemoglobin ABG Sodium ABG Chloride ABG Glucose Oxyhemoglobin Carboxyhemoglobin Sodium 133 L Potassium Chloride 95.5 L Carbon Dioxide 32 H BUN Creatinine 0.2 L Glucose 137 H POC Glucose Hemoglobin A1c Ferritin 283.5 H AST ALT 63 H Alkaline Phosphatase Lactate Dehydrogenase 563 H C-Reactive Protein Total Protein 6.1 L Albumin 3.0 L Arterial Blood Glucose Coronavirus (PCR) 05/14/21 05/14/21 05/14/21 12:21 15:33 21:50 WBC MCHC RDW Lymph % (Auto) Lymph # (Auto) Baso # (Auto) Seg Neutrophils % Seg Neuts % (Manual) Lymphocytes % (Manual) Seg Neutrophils # Seg Neutrophils # Man Lymphocytes # (Manual) D-Dimer ABG pH POC ABG pO2 ABG pO2 ABG HCO3 ABG O2 Saturation ABG Base Excess ABG Oxyhemoglobin ABG Sodium ABG Chloride ABG Glucose Oxyhemoglobin Carboxyhemoglobin Sodium Potassium Chloride Carbon Dioxide BUN Creatinine Glucose POC Glucose 143 H 204 H 202 H Hemoglobin A1c Ferritin AST ALT Alkaline Phosphatase Lactate Dehydrogenase C-Reactive Protein Total Protein Albumin Arterial Blood Glucose Coronavirus (PCR) 05/15/21 05/15/21 05/15/21 05:05 11:12 16:39 WBC MCHC RDW Lymph % (Auto) Lymph # (Auto) Baso # (Auto) Seg Neutrophils % Seg Neuts % (Manual) Lymphocytes % (Manual) Seg Neutrophils # Seg Neutrophils # Man Lymphocytes # (Manual) D-Dimer ABG pH POC ABG pO2 ABG pO2 ABG HCO3 ABG O2 Saturation ABG Base Excess ABG Oxyhemoglobin ABG Sodium ABG Chloride ABG Glucose Oxyhemoglobin Carboxyhemoglobin Sodium Potassium Chloride Carbon Dioxide BUN Creatinine Glucose POC Glucose 125 H 201 H 241 H Hemoglobin A1c Ferritin AST ALT Alkaline Phosphatase Lactate Dehydrogenase C-Reactive Protein Total Protein Albumin Arterial Blood Glucose Coronavirus (PCR) 05/15/21 05/16/21 05/16/21 21:31 05:04 10:40 WBC MCHC RDW Lymph % (Auto) Lymph # (Auto) Baso # (Auto) Seg Neutrophils % Seg Neuts % (Manual) Lymphocytes % (Manual) Seg Neutrophils # Seg Neutrophils # Man Lymphocytes # (Manual) D-Dimer ABG pH POC ABG pO2 ABG pO2 ABG HCO3 ABG O2 Saturation ABG Base Excess ABG Oxyhemoglobin ABG Sodium ABG Chloride ABG Glucose Oxyhemoglobin Carboxyhemoglobin Sodium Potassium Chloride Carbon Dioxide BUN Creatinine Glucose POC Glucose 234 H 123 H 231 H Hemoglobin A1c Ferritin AST ALT Alkaline Phosphatase Lactate Dehydrogenase C-Reactive Protein Total Protein Albumin Arterial Blood Glucose Coronavirus (PCR) 05/16/21 05/16/21 05/17/21 18:23 21:29 06:20 WBC MCHC RDW 18.8 H Lymph % (Auto) 10.2 L Lymph # (Auto) 0.8 L Baso # (Auto) Seg Neutrophils % 85.8 H Seg Neuts % (Manual) Lymphocytes % (Manual) Seg Neutrophils # Seg Neutrophils # Man Lymphocytes # (Manual) D-Dimer ABG pH POC ABG pO2 ABG pO2 ABG HCO3 ABG O2 Saturation ABG Base Excess ABG Oxyhemoglobin ABG Sodium ABG Chloride ABG Glucose Oxyhemoglobin Carboxyhemoglobin Sodium Potassium Chloride Carbon Dioxide BUN Creatinine Glucose POC Glucose 266 H 234 H Hemoglobin A1c Ferritin AST ALT Alkaline Phosphatase Lactate Dehydrogenase C-Reactive Protein Total Protein Albumin Arterial Blood Glucose Coronavirus (PCR) 05/17/21 05/17/21 06:20 11:06 WBC MCHC RDW Lymph % (Auto) Lymph # (Auto) Baso # (Auto) Seg Neutrophils % Seg Neuts % (Manual) Lymphocytes % (Manual) Seg Neutrophils # Seg Neutrophils # Man Lymphocytes # (Manual) D-Dimer ABG pH POC ABG pO2 ABG pO2 ABG HCO3 ABG O2 Saturation ABG Base Excess ABG Oxyhemoglobin ABG Sodium ABG Chloride ABG Glucose Oxyhemoglobin Carboxyhemoglobin Sodium Potassium Chloride Carbon Dioxide 33 H BUN Creatinine 0.2 L Glucose 101 H POC Glucose 209 H Hemoglobin A1c Ferritin AST ALT Alkaline Phosphatase Lactate Dehydrogenase C-Reactive Protein Total Protein Albumin Arterial Blood Glucose Coronavirus (PCR)
[2021-05-17] MEDS: HYPROMELLOSE 0.5% OPHTH SOLN 15 ML OU PRN (15:38)
--- NOTE | 2021-05-17 16:38 | Progress Note ---
Assessment and Plan 50-year-old female past medical history obesity, GERD, hyperlipidemia brought to the hospital due to shortness of breath, fevers, malaise, typical Covid symptoms for approximate 1 week prior to admission and was progressively worse since on set. She is found to have saturations of 86% on presentation. Afebrile since admission with a white count 7.5. Covid test was positive positive along with normal renal function and normal procalcitonin. Chest x-ray: Bilateral pneumonia. Patient initiated on Covid protocol, ID and pulmonary care following Assessment and plan: --Acute hypoxic resp failure due to covid19 -S/p BiPAP, now discontinued -Currently on high per nasal cannula at flow rate 40 L/min along with nonrebreather -See RT notes for titration -Albuterol as needed -Pulmonary hygiene -Pulmonology following CTA chest ordered, patient could not tolerate --covid19 pna; sepsis; -zinc/vitC/D -methylpred 125 mg every 8; wean as appropriate -Infectious disease consulted, -S/p Actemra and remdesivir -Trend temperature and WBC curve -Follow culture data --Oral candidiasis Nystatin solution ordered. -- hyponatremia -Last 24 hours -125 -Trend BMP -Replace electrolytes as needed -Monitor intake and output -- coagulopathy of covid; on AC -Subcu heparin -Trend CBC -Transfuse for hemoglobin less than 7 -Bilateral lower extremity Doppler ultrasounds negative for DVT ; no CTA or VQ scan to rule out PE -- hyperglycemia; obesity -glargine HS -SSI AC/HS -Avoid hypoglycemia -- risk for protein gisella malnutrition given inc metabolic demand with resp insufficiency -TPN earlier in hospital admission due to BiPAP however now patient is tolerating p.o. -Patient on a GI soft diet with aspiration precautions -Nutrition following -Bowel regimen: Colace, senna, MiraLAX -PPI --Anxiety Likely due to severe hypoxia -Follows commands and RAY -PRN pain and anxiety meds -Patient is Hebrew-speaking but understands Sinhala --viral conjunctivitis right eye: -Right eye- s/p 5 d course of cipro drops. suspect viral conjunctivitis. lubricating eye drops. supportive management. --Septic shock -S/p pressors now discontinued -MAP goal 65 -Pressure monitor per protocol --DVT prophylaxis, per hospital protocol Hospital course to date: 04/17: Patient seen and examined, still uncomfortable with Hypoxic respiratory failure and on oxygen, will continue to steroids therapy, start patient on Remdesivir, ID consulted, Pulmonary consult placed. 04/18: Patient seen and examined, she is currently being changed to High flow NC due to worsening HYPOXIA, will transfer to IMCU, Pulmonary and ID following. Will also give a dose of Lasix today. Monitor Inflammatory markers. 04/19: Patient seen and examined still on high flow due to hypoxia. Appears a bit more comfortable today than yesterday. Cough has decreased in frequency. We will continue high dose Dexameathasone to complete 10 days. continue on Remdesivir 200 mg IV q day x 1 followed by 100 mg IV q day x 4 days -Obtain q48-72h inflammatory markers - ferritin, Ddimer, CRP, LDH Will also give lasix daily for the next 3 days and monitor renal function. Family updated. Continue prone positioning as tolerated 04/20: Patient has some desaturation episodes yesterday was placed on BiPAP. Discussed with ICU team for bed availability for patient to be transferred up. Continue prone position as tolerated. 04/21: Patient remains with profound hypoxia secondary to COVID pneumonia. -Continue steroids -Continue remedesir -S/P Actmera 04/22: Patient remains on steroids and remdesivir. ABG shows persistent hypoxia. We will continue current management additional trial of Lasix for the next few days to see if any improvement. Monitor inflammatory markers as needed. Prognosis is guarded remains on high flow 04/23; patient was treated with remdesivir and Actemra. Continue steroid. Patient's prognosis is guarded. 04/24; patient is on steroid. Patient is currently on BiPAP. Prognosis is guarded. Pulmonary is following. Patient was given Lasix and Ativan. 04/25; continue steroid. Patient was on 40 L of high flow oxygen with saturation was 88%. Pulmonary is following. Prognosis is guarded. Patient was given lasix and ativan. 04/26; patient is on BiPAP and Precedex. Prognosis is guarded. 04/27; patient is on BiPAP and Precedex. Patient will finish steroid today and will start on Solu-Medrol tomorrow. Prognosis is guarded. Blood pressure is better today. Hold Lasix. 04/28 patient is on 100 Fio2 via BIPAP. moderately dyspneic, pulmonary note reviewed, lab results reviewed 04/29 no acute events- see systems review above 04/30 no acute events overnight - on airvo today- TPN started -see systems review above 05-01 no acute events overnight- tolerating airvo- see systems review above 05-02 no acute events overnight; tolerating airvo this AM- see systems review above 05/03: Patient has shown remarkable improvement, weaned down to 3 L and satting 95%. Will attempt to walk test today in anticipation for discharge tomorrow. Discussed with PT team to walk the patient today also. 05/04: Patient appears to have had a decline he was down to 3 L satting 95% with anticipation for discharge today but desatted down to 85% on room air and only 88% on 5 L he is now back at 8 L. I encourage incentive spirometer. While he is on Xarelto and has completed the severe steroids which was subsequently changed to Solu-Medrol I will go ahead and order a CTA to make sure that there is not a failure of Xarelto. We will continue to wean as tolerated discussed with nursing staff at bedside. 05/05/21 Patient is on 40 L of oxygen with 80% FiO2. Patient is encouraged to turn to the side more frequently. Patient is denied any shortness of breath and coughing. No other complaints. Follow the CT scan of the chest. Status post remdesivir and Actemra.Solu-Medrol 40 mg IV every 8 hours. Continue current management. Pulmonary follow-up. 05/06: Patient remains on high flow nasal cannula but states that she feels slightly better with the help of translation from her cousin Aspen. Patient is still awaiting a bed on the floor. Patient diet is being tolerated now so we will stop TPN will be stopped tonight. 05/07/2021: Patient remains on 40 L/min oxygen at 90% FiO2. Attempt made for CTA chest to rule out pulmonary embolism however patient desatted while at CT. Study was aborted, will reattempt again tomorrow. will follow along with renetta bertrand. Discussed/updated patient and patient's daughter over phone regarding any active clinical issues. Patient only complaint is oral pain from oral candidiasis noted on exam. Nystatin oral solution ordered. Daughter also voiced concern over patient eye drops which she stated that patient needed to restart from home. However she did not remember name of drops. advised daughter to call our hospital with drop name and dosing and we will restart. 05/08/2021: Started anticoagulation with Lovenox yesterday. Awaiting CTA chest completion. Will attempt to de-escalate oxygen as patient tolerates 05/09/2021: Continues to have high O2 requirements. CTA chest aborted due to patient not being able to tolerate transport to and from scanner. Will follow pulmonology recommendations 05/10/2021: Steroids increased yesterday to 125 mg every 8 hour. Continuing full dose anticoagulation. Respiratory status still remains challenging as it is difficult to wean patient off of hifnc. Minimal improvement compared to last few days. Plan to prone patient today. Otherwise: Some improvement in eye symptoms compared to yesterday. Will order more lubricating eye drops 05/11/2021: Still requires high flow nasal cannula, FiO2 de-escalated to 85%.. Encourage continued proning, patient care team aware. Continue with steroids, anticoagulation, antibiotics. 05/12/2021: High flow nasal cannula remains at flow rate 35 L/min and FiO2 of 85%. Patient appears more comfortable today. Started insulin regimen due to hyperglycemia likely multifactorial in the setting of underlying diabetes and high-dose steroids. Continue to encourage patient to prone. Discussed with pulmonology regarding patient underlying anxiety. We both agreed that low-dose BuSpar might be beneficial for the patient. 05/13/2020: hypoxic resp distress overnight. cpap ordered. Current settings on encounter 30/04 at 100% FIO2. Advised care (RN, RT, PT) team to continue to aggressively work with patient as far as proning. Patient can sit at side of bed and rest on bedside tray w/ pillow in "Rodin's thinker pose". continue high dose steroids, PRN ativan for anxiety, Buspar noted in pulm recs. 05/14/21: Patient remains on 100% O2 with high flow. Follow inflammatory markers, wean FiO2 as tolerated, guarded prognosis 05/15: Patient on 40 L high flow O2 today-requiring nonrebreather intermittently, continue to follow inflammatory markers and wean off O2 as shaan ated, guarded prognosis. 05/16:-Remains on high flow O2 along with nonrebreather, continue to follow inflammatory markers and wean off O2 as tolerated, pulmonary and ID following. Guarded prognosis, patient requiring higher concentration of O2 and unable to wean off. 05/17: Persistently recurring higher concentration O2. Patient on both high flow oxygen and nonrebreather. Poor prognosis, continue to follow inflammatory markers. ID and pulmonary care following. Updated family. Subjective Date of service: 05/17/21 Principal diagnosis: Covid-19 Interval history: Patient seen and examined. Medical records and medication list reviewed. No acute event overnight noted by the RN. Patient remains on high flow O2 along with nonrebreather. Patient is tolerating diet. Discussed plan of care at bedside with patient. Objective - Exam Narrative Exam: Limited physical exam due to COVID-19 pandemic to minimize transmission of the disease and to preserve PPE. Vital reviewed and stable. GENERAL: well-developed well-nourished lying on bed appeared to be in no discomfort. HEENT: Normocephalic. Atraumatic. Right eye congestion NECK: Supple. CHEST/LUNGS: breathing on high flow O2 with nonrebreather HEART/CARDIOVASCULAR: Heart rate stable on telemetry ABDOMEN: Visibly not distended SKIN: There is no rash NEURO: No focal motor deficit. Follows command. MUSCULOSKELETAL: No joint effusion EXTRIMITY: No swelling, no cyanosis or clubbing. PSYCH: Cooperative. - Constitutional Vitals: Vital Signs - 12hr 05/17/21 05/17/21 05/17/21 05:29 10:43 11:34 Temperature 98.2 F 98.5 F Pulse Rate 74 81 Respiratory 20 18 Rate Blood Pressure 105/66 105/61 O2 Sat by Pulse 97 94 94 Oximetry 05/17/21 12:09 Temperature Pulse Rate Respiratory 18 Rate Blood Pressure O2 Sat by Pulse Oximetry - Labs CBC & Chem 7: 05/17/21 06:20 05/17/21 06:20 Labs: Abnormal lab results 05/16/21 05/16/21 05/17/21 Range/Units 18:23 21:29 06:20 RDW 18.8 H (13.2-15.2) % Lymph % (Auto) 10.2 L (13.4-35.0) % Lymph # (Auto) 0.8 L (1.2-5.4) K/mm3 Seg Neutrophils % 85.8 H (40.0-70.0) % Carbon Dioxide (22-30) mmol/L Creatinine (0.6-1.2) mg/dL Glucose (65-100) mg/dL POC Glucose 266 H 234 H (70-105) mg/dL 05/17/21 05/17/21 Range/Units 06:20 11:06 RDW (13.2-15.2) % Lymph % (Auto) (13.4-35.0) % Lymph # (Auto) (1.2-5.4) K/mm3 Seg Neutrophils % (40.0-70.0) % Carbon Dioxide 33 H (22-30) mmol/L Creatinine 0.2 L (0.6-1.2) mg/dL Glucose 101 H (65-100) mg/dL POC Glucose 209 H (70-105) mg/dL
[2021-05-17] MEDS: SENNOSIDES 8.6 MG TAB PO SCH (21:50)
[2021-05-18] MEDS: methylPREDNISolone Sod Succinate 125 MG/2 ML INJ IV SCH ×3 (05:36→22:18)
[2021-05-18] MEDS: ENOXAPARIN 80 MG/0.8 ML INJ SUB-Q SCH ×2 (05:36→18:42)
[2021-05-18] MEDS: LORazepam 2 MG/ML VIAL IV SCH ×3 (05:36→18:35)
[2021-05-18] MEDS: MINERAL OIL/PETROLATUM, WHITE OPHTH OINT 3.5 GM OU SCH ×3 (05:37→22:19)
[2021-05-18] MEDS: INSULIN LISPRO 100 UNIT/ML SUB-Q SCH ×5 (05:37→22:19)
[2021-05-18] MEDS: INSULIN REGULAR, HUMAN 100 UNITS/1 ML SUB-Q SCH ×2 (05:38→16:55)
[2021-05-18] MEDS: ZINC SULFATE 220 MG CAP PO SCH ×2 (10:22→22:18)
[2021-05-18] MEDS: POLYETHYLENE GLYCOL 3350 17 GM POWDER PO SCH (10:22)
[2021-05-18] MEDS: DOCUSATE SODIUM 100 MG CAP PO SCH ×2 (10:22→22:18)
[2021-05-18] MEDS: ASCORBIC ACID 500 MG TAB PO SCH (10:22)
[2021-05-18] MEDS: FAMOTIDINE 20 MG TAB PO SCH ×2 (10:22→22:18)
[2021-05-18] MEDS: INSULIN GLARGINE 100 UNITS/ML SUB-Q SCH ×2 (10:23→22:17)
[2021-05-18] MEDS: CHOLECALCIFEROL (VIT D3) 1000 UNIT (25 mcg) TAB PO SCH (10:25)
--- NOTE | 2021-05-18 14:31 | Progress Note ---
Assessment and Plan 50-year-old female past medical history obesity, GERD, hyperlipidemia brought to the hospital due to shortness of breath, fevers, malaise, typical Covid symptoms for approximate 1 week prior to admission and was progressively worse since on set. She is found to have saturations of 86% on presentation. Afebrile since admission with a white count 7.5. Covid test was positive positive along with normal renal function and normal procalcitonin. Chest x-ray: Bilateral pneumonia. Patient initiated on Covid protocol, ID and pulmonary care following Assessment and plan: --Acute hypoxic resp failure due to covid19 -S/p BiPAP, now discontinued -Currently on high per nasal cannula at flow rate 40 L/min along with nonrebreather -See RT notes for titration -Albuterol as needed -Pulmonary hygiene -Pulmonology following CTA chest ordered, patient could not tolerate --covid19 pna; sepsis; -zinc/vitC/D -methylpred 125 mg every 8; wean as appropriate -Infectious disease consulted, -S/p Actemra and remdesivir -Trend temperature and WBC curve -Follow culture data --Oral candidiasis Nystatin solution ordered. -- hyponatremia -Last 24 hours -125 -Trend BMP -Replace electrolytes as needed -Monitor intake and output -- coagulopathy of covid; on AC -Subcu heparin -Trend CBC -Transfuse for hemoglobin less than 7 -Bilateral lower extremity Doppler ultrasounds negative for DVT ; no CTA or VQ scan to rule out PE -- hyperglycemia; obesity -glargine HS -SSI AC/HS -Avoid hypoglycemia -- risk for protein gisella malnutrition given inc metabolic demand with resp insufficiency -TPN earlier in hospital admission due to BiPAP however now patient is tolerating p.o. -Patient on a GI soft diet with aspiration precautions -Nutrition following -Bowel regimen: Colace, senna, MiraLAX -PPI --Anxiety Likely due to severe hypoxia -Follows commands and RAY -PRN pain and anxiety meds -Patient is French-speaking but understands Kinyarwanda --viral conjunctivitis right eye: -Right eye- s/p 5 d course of cipro drops. suspect viral conjunctivitis. lubricating eye drops. supportive management. --Septic shock -S/p pressors now discontinued -MAP goal 65 -Pressure monitor per protocol --DVT prophylaxis, per hospital protocol Hospital course to date: 04/17: Patient seen and examined, still uncomfortable with Hypoxic respiratory failure and on oxygen, will continue to steroids therapy, start patient on Remdesivir, ID consulted, Pulmonary consult placed. 04/18: Patient seen and examined, she is currently being changed to High flow NC due to worsening HYPOXIA, will transfer to IMCU, Pulmonary and ID following. Will also give a dose of Lasix today. Monitor Inflammatory markers. 04/19: Patient seen and examined still on high flow due to hypoxia. Appears a bit more comfortable today than yesterday. Cough has decreased in frequency. We will continue high dose Dexameathasone to complete 10 days. continue on Remdesivir 200 mg IV q day x 1 followed by 100 mg IV q day x 4 days -Obtain q48-72h inflammatory markers - ferritin, Ddimer, CRP, LDH Will also give lasix daily for the next 3 days and monitor renal function. Family updated. Continue prone positioning as tolerated 04/20: Patient has some desaturation episodes yesterday was placed on BiPAP. Discussed with ICU team for bed availability for patient to be transferred up. Continue prone position as tolerated. 04/21: Patient remains with profound hypoxia secondary to COVID pneumonia. -Continue steroids -Continue remedesir -S/P Actmera 04/22: Patient remains on steroids and remdesivir. ABG shows persistent hypoxia. We will continue current management additional trial of Lasix for the next few days to see if any improvement. Monitor inflammatory markers as needed. Prognosis is guarded remains on high flow 04/23; patient was treated with remdesivir and Actemra. Continue steroid. Patient's prognosis is guarded. 04/24; patient is on steroid. Patient is currently on BiPAP. Prognosis is guarded. Pulmonary is following. Patient was given Lasix and Ativan. 04/25; continue steroid. Patient was on 40 L of high flow oxygen with saturation was 88%. Pulmonary is following. Prognosis is guarded. Patient was given lasix and ativan. 04/26; patient is on BiPAP and Precedex. Prognosis is guarded. 04/27; patient is on BiPAP and Precedex. Patient will finish steroid today and will start on Solu-Medrol tomorrow. Prognosis is guarded. Blood pressure is better today. Hold Lasix. 04/28 patient is on 100 Fio2 via BIPAP. moderately dyspneic, pulmonary note reviewed, lab results reviewed 04/29 no acute events- see systems review above 04/30 no acute events overnight - on airvo today- TPN started -see systems review above 05-01 no acute events overnight- tolerating airvo- see systems review above 05-02 no acute events overnight; tolerating airvo this AM- see systems review above 05/03: Patient has shown remarkable improvement, weaned down to 3 L and satting 95%. Will attempt to walk test today in anticipation for discharge tomorrow. Discussed with PT team to walk the patient today also. 05/04: Patient appears to have had a decline he was down to 3 L satting 95% with anticipation for discharge today but desatted down to 85% on room air and only 88% on 5 L he is now back at 8 L. I encourage incentive spirometer. While he is on Xarelto and has completed the severe steroids which was subsequently changed to Solu-Medrol I will go ahead and order a CTA to make sure that there is not a failure of Xarelto. We will continue to wean as tolerated discussed with nursing staff at bedside. 05/05/21 Patient is on 40 L of oxygen with 80% FiO2. Patient is encouraged to turn to the side more frequently. Patient is denied any shortness of breath and coughing. No other complaints. Follow the CT scan of the chest. Status post remdesivir and Actemra.Solu-Medrol 40 mg IV every 8 hours. Continue current management. Pulmonary follow-up. 05/06: Patient remains on high flow nasal cannula but states that she feels slightly better with the help of translation from her cousin Aspen. Patient is still awaiting a bed on the floor. Patient diet is being tolerated now so we will stop TPN will be stopped tonight. 05/07/2021: Patient remains on 40 L/min oxygen at 90% FiO2. Attempt made for CTA chest to rule out pulmonary embolism however patient desatted while at CT. Study was aborted, will reattempt again tomorrow. will follow along with renetta bertrand. Discussed/updated patient and patient's daughter over phone regarding any active clinical issues. Patient only complaint is oral pain from oral candidiasis noted on exam. Nystatin oral solution ordered. Daughter also voiced concern over patient eye drops which she stated that patient needed to restart from home. However she did not remember name of drops. advised daughter to call our hospital with drop name and dosing and we will restart. 05/08/2021: Started anticoagulation with Lovenox yesterday. Awaiting CTA chest completion. Will attempt to de-escalate oxygen as patient tolerates 05/09/2021: Continues to have high O2 requirements. CTA chest aborted due to patient not being able to tolerate transport to and from scanner. Will follow pulmonology recommendations 05/10/2021: Steroids increased yesterday to 125 mg every 8 hour. Continuing full dose anticoagulation. Respiratory status still remains challenging as it is difficult to wean patient off of hifnc. Minimal improvement compared to last few days. Plan to prone patient today. Otherwise: Some improvement in eye symptoms compared to yesterday. Will order more lubricating eye drops 05/11/2021: Still requires high flow nasal cannula, FiO2 de-escalated to 85%.. Encourage continued proning, patient care team aware. Continue with steroids, anticoagulation, antibiotics. 05/12/2021: High flow nasal cannula remains at flow rate 35 L/min and FiO2 of 85%. Patient appears more comfortable today. Started insulin regimen due to hyperglycemia likely multifactorial in the setting of underlying diabetes and high-dose steroids. Continue to encourage patient to prone. Discussed with pulmonology regarding patient underlying anxiety. We both agreed that low-dose BuSpar might be beneficial for the patient. 05/13/2020: hypoxic resp distress overnight. cpap ordered. Current settings on encounter 30/04 at 100% FIO2. Advised care (RN, RT, PT) team to continue to aggressively work with patient as far as proning. Patient can sit at side of bed and rest on bedside tray w/ pillow in "Rodin's thinker pose". continue high dose steroids, PRN ativan for anxiety, Buspar noted in pulm recs. 05/14/21: Patient remains on 100% O2 with high flow. Follow inflammatory markers, wean FiO2 as tolerated, guarded prognosis 05/15: Patient on 40 L high flow O2 today-requiring nonrebreather intermittently, continue to follow inflammatory markers and wean off O2 as shaan ated, guarded prognosis. 05/16:-Remains on high flow O2 along with nonrebreather, continue to follow inflammatory markers and wean off O2 as tolerated, pulmonary and ID following. Guarded prognosis, patient requiring higher concentration of O2 and unable to wean off. 05/17: Persistently recurring higher concentration O2. Patient on both high flow oxygen and nonrebreather. Poor prognosis, continue to follow inflammatory markers. ID and pulmonary care following. Updated family. 05/18: Patient remains on nonrebreather and high flow O2, Prone if possible. Wean FiO2 for sats >88%. Prognosis is very very guarded. Follow inflammatory markers. Subjective Date of service: 05/18/21 Principal diagnosis: Covid-19 Interval history: Patient seen and examined. Medical records and medication list reviewed. No acute event overnight noted by the RN. Patient remains on high flow O2 along with nonrebreather. Patient is tolerating diet. Discussed plan of care at bedside with patient. Objective - Exam Narrative Exam: Limited physical exam due to COVID-19 pandemic to minimize transmission of the disease and to preserve PPE. Vital reviewed and stable. GENERAL: well-developed well-nourished lying on bed appeared to be in no discomfort. HEENT: Normocephalic. Atraumatic. Right eye congestion NECK: Supple. CHEST/LUNGS: breathing on high flow O2 with nonrebreather HEART/CARDIOVASCULAR: Heart rate stable on telemetry ABDOMEN: Visibly not distended SKIN: There is no rash NEURO: No focal motor deficit. Follows command. MUSCULOSKELETAL: No joint effusion EXTRIMITY: No swelling, no cyanosis or clubbing. PSYCH: Cooperative. - Constitutional Vitals: Vital Signs - 12hr 05/18/21 05/18/21 05/18/21 09:04 11:30 14:07 Temperature 97.7 F Pulse Rate 96 H Respiratory 18 Rate Blood Pressure 118/61 [Left] O2 Sat by Pulse 88 97 95 Oximetry - Labs CBC & Chem 7: 05/17/21 06:20 05/17/21 06:20 Labs: Abnormal lab results 05/17/21 05/17/21 05/18/21 Range/Units 16:36 21:06 12:00 POC Glucose 180 H 256 H 139 H (70-105) mg/dL
[2021-05-18] MEDS: SENNOSIDES 8.6 MG TAB PO SCH (22:18)
[2021-05-19] MEDS: ACETAMINOPHEN 325 MG TAB PO PRN ×2 (00:47→20:35)
[2021-05-19] MEDS: LORazepam 2 MG/ML VIAL IV SCH ×4 (00:47→18:41)
[2021-05-19] MEDS: methylPREDNISolone Sod Succinate 125 MG/2 ML INJ IV SCH ×3 (06:47→22:18)
[2021-05-19] MEDS: ENOXAPARIN 80 MG/0.8 ML INJ SUB-Q SCH (06:47)
[2021-05-19] MEDS: MINERAL OIL/PETROLATUM, WHITE OPHTH OINT 3.5 GM OU SCH ×3 (06:48→23:00)
[2021-05-19] MEDS: INSULIN LISPRO 100 UNIT/ML SUB-Q SCH ×5 (07:30→22:19)
[2021-05-19] MEDS: INSULIN GLARGINE 100 UNITS/ML SUB-Q SCH ×3 (08:53→22:35)
[2021-05-19] MEDS: POLYETHYLENE GLYCOL 3350 17 GM POWDER PO SCH ×2 (08:53→17:08)
[2021-05-19] MEDS: FAMOTIDINE 20 MG TAB PO SCH ×3 (08:54→22:18)
[2021-05-19] MEDS: ASCORBIC ACID 500 MG TAB PO SCH ×2 (08:54→17:08)
[2021-05-19] MEDS: DOCUSATE SODIUM 100 MG CAP PO SCH ×3 (08:54→22:18)
[2021-05-19] MEDS: CHOLECALCIFEROL (VIT D3) 1000 UNIT (25 mcg) TAB PO SCH ×2 (08:54→17:08)
[2021-05-19] MEDS: ZINC SULFATE 220 MG CAP PO SCH ×2 (11:51→22:18)
--- NOTE | 2021-05-19 12:03 | Progress Note ---
Assessment and Plan 50 y/o female with acute respiratory failure secondary to COVID19 pneumonia. 05/19/2021: No significant change remain on high flow nasal cannula., Sleeping prone. Wean FiO2 as tolerated. 05/16/21: Prone if willing. Wean FIO2 if patient will allow. Anxiety control. Prognosis still remains very guarded. 05/15/21: Not sure if MAR is accurate but may have only gotten one dose of scheduled anixolytic therapy. Continue proning as tolerated, and wean FiO2 and flow for sats >88%. Prognosi remains very very guarded to poor. 05/14/21: Will discontinue the buspar and make the ativan scheduled but will do q6 as oppose to q4 and attempt to leave parameters for nursing when not to give. If anxiety could be controlled, feel that patient could be weaned further. She has no funding so she is not a candidate for LTACH. Prone if possible. Guarded prognosis. This is her 28th day. 05/13/21: Ordered buspar 10 BID to start with to help with anxiety. Please continue to wean FiO2 as tolerated. Will remind nurse that there is PRN ativan available. Continue higher doses of steroids. Prone if able. 05/12/21: Patient may need something longer acting for anxiety. Per chart has not gotten any ativan in days. Would be ok with either buspar or low dose klonopin bid. COntinue higher doses of steroids as patient seems to be responding. Prone if possible. 05/11/21: Continue high doses of steroids and continue to wean for sats >88%. Please encourage proning. 05/10/21: Will continue this dose of steroid at least through the weekend and assess for improvement. will speak with RT about aggressive weaning. Full dose anticoagulation continues. Very very guarded to poor prognosis. 05/09/21: Going to consider increasing steroids to 125q8, maybe as early as tomorrow. continue full dose anticoagulation. 05/08/21: Continue anticoagulation and steroids. Prone if possible. Anxiety control. No objection to CTA if this can happen. Very very guarded prognosis. 05/07/21: Spoke with IMS, not opposed to full dose anticoagulation. If patient goes back on NRB HFNC combo may need to consider restarting PPN again. Encourage proning. Guarded prognosis. 05/06/21: Continue to wean FiO2 and flow for sats >88%. Tolerating diet now so will stop PPN. Continue anxiety control. Continue IV steroids. Would not object to transfer to COVID floor if bed available. Not sure why she was titrated back up to 100% from 85 as all sats documented in the RT's notes were acceptable. Same for under vital signs as well. 05/03/21: Set back last night from yesterday. Continue bipap therapy for now and attempt HFNC maybe later this afternoon. Continue to use PRN ativan but may need to schedule as she likely took off mask from anxiety. Continue IV steroids. Hold on transfer to COVID Floor. 05/02/21: Continue to wean FiO2 as tolerated for sats >88%. Will continue bipap at night. Patient has no funding so not a candidate for LTACH. Given that she has been stable and not requiring the combo of HFNC and NRB, will consider moving to COVID floor. 05/01/21: Continue to wean FiO2 for sats >88%. A sat of 90 is more than acceptable and oxygen should not be increased for this unless patient desats and remains at a sat lower than 88. Bipap at night to give some form of relief and HFNC during the day. Currently on just this alone which is improvement. Ok with daily diuresis but must monitor renal function and BP closely. She was over diuresed last week and we ended up giving fluid back. Prognosis remains guarded. 04/30/21: Will start CLinimix today for nutritional support, without e lectrolytes. Check labs in am. Prone if able. Continue precedx for anxiety. Very very guarded prognosis. Attempting our best to not intubate. 04/29/21: Continue precedex. Continue IV solumedrol. Prone if able. Guarded prognosis. 04/28/21: Continue Precedex. Picc team attempting to place line now. Stable on Bipap. Ordered steroids IV solumedrol to start today. Prognosis remains guarded, still at very high risk for intubation. 04/27/21: Hypotension improving/improved. Hold on any further lasix dosing. Continue precedex to help with anxeity. later today please attempt HFNC with NRB if needed. Attempt to feed if possible. Steroids end today, please order solumedrol 40q8 to start tomorrow (8/15/21). guarded prognosis. 04/26/21: Hypotension today, most likely from precedex use and diuresis that I did the last several days. Will bolus again today. Consider midodrine if BP does not respond. 04/25/21: Lasix again today. Keep PRN ativan for now. Hold on precedex for no w. Guarded prognosis. Labs ordered for tomorrow. 04/24/21: Lasix today. Will also start patient on low dose PRN ativan. If this does not help will then try precedex. Guarded prognosis. 04/23/21: Prone as tolerated. No lasix today. Continue decadron. Guarded prognosis. High risk for intubation and high mortality with intubation. 04/19/21: Prone as tolerated during the day and sleep prone at night. Continue IV remdesivir and steroids. Did get actemra. Guarded prognosis. 1. Daily net negative state 2. Prone if possible 3. IV remdesivir. 4. Should be a candidate for Actemra 5. IV steroids 6. Guarded Prognosis Subjective Date of service: 05/19/21 Principal diagnosis: Covid-19 Interval history: Patient sleeping in prone position. Patient on high flow nasal cannula with FiO2 80% at 40 L flow. Objective - Exam Narrative Exam: Limited physical exam due to COVID-19 pandemic to minimize transmission of the disease and to preserve PPE. Vital reviewed and stable. GENERAL: well-developed well-nourished lying on bed appeared to be in no discomfort. HEENT: Normocephalic. Atraumatic. Right eye congestion NECK: Supple. CHEST/LUNGS: breathing on high flow O2 with nonrebreather HEART/CARDIOVASCULAR: Heart rate stable on telemetry ABDOMEN: Visibly not distended SKIN: There is no rash NEURO: No focal motor deficit. Follows command. MUSCULOSKELETAL: No joint effusion EXTRIMITY: No swelling, no cyanosis or clubbing. PSYCH: Cooperative. Vital Signs - 12hr 05/19/21 05/19/21 05/19/21 00:47 01:47 02:17 Temperature Pulse Rate Respiratory 20 20 Rate Blood Pressure O2 Sat by Pulse 95 Oximetry 05/19/21 05/19/21 05/19/21 05:40 08:00 08:10 Temperature 97.9 F Pulse Rate 67 Respiratory 22 Rate Blood Pressure 99/57 O2 Sat by Pulse 97 96 96 Oximetry Constitutional: no acute distress, alert Eyes: non-icteric ENT: oropharynx moist Neck: supple Effort: normal Ascultation: Bilateral: diminished breath sounds Cardiovascular: regular rate and rhythm Gastrointestinal: normoactive bowel sounds, soft, non-tender, non-distended Integumentary: normal Extremities: no cyanosis, no edema, pink and warm Neurologic: normal mental status, non-focal exam, pupils equal and round, CN II- XII normal Psychiatric: mood appropriate, affect normal CBC and BMP: 05/17/21 06:20 05/17/21 06:20 ABG, PT/INR, D-dimer: ABG ABG pH 7.403 pH Units (7.350-7.450) 05/14/21 02:23 POC ABG pCO2 45.4 mmHg (32.0-48.0) 05/03/21 04:49 ABG pCO2 50.2 mm Hg 05/14/21 02:23 POC ABG pO2 65.3 mmHg (83-108) L 05/03/21 04:49 ABG pO2 130.3 mm Hg (80.0-90.0) H 05/14/21 02:23 POC ABG HCO3 18.5 05/03/21 04:49 ABG O2 Saturation 98.5 % (95.0-99.0) 05/14/21 02:23 PT/INR, D-dimer D-Dimer 874.02 ng/mlDDU (0-234) H 05/18/21 15:06 Abnormal lab findings: Abnormal Labs 04/16/21 04/16/21 04/16/21 11:42 11:42 11:42 WBC MCHC RDW 16.1 H Lymph % (Auto) 7.8 L Lymph # (Auto) 0.8 L Baso # (Auto) Seg Neutrophils % 87.7 H Seg Neuts % (Manual) Lymphocytes % (Manual) Seg Neutrophils # 8.5 H Seg Neutrophils # Man Lymphocytes # (Manual) D-Dimer 338.70 H ABG pH POC ABG pO2 ABG pO2 ABG HCO3 ABG O2 Saturation ABG Base Excess ABG Oxyhemoglobin ABG Sodium ABG Chloride ABG Glucose Oxyhemoglobin Carboxyhemoglobin Sodium Potassium Chloride Carbon Dioxide BUN Creatinine Glucose 194 H POC Glucose Hemoglobin A1c Ferritin AST ALT Alkaline Phosphatase Lactate Dehydrogenase C-Reactive Protein Total Protein 8.4 H Albumin 3.8 L Arterial Blood Glucose Coronavirus (PCR) 04/16/21 04/16/21 04/17/21 11:42 11:42 03:50 WBC MCHC RDW 16.0 H Lymph % (Auto) 7.7 L Lymph # (Auto) 0.6 L Baso # (Auto) Seg Neutrophils % 89.8 H Seg Neuts % (Manual) Lymphocytes % (Manual) Seg Neutrophils # Seg Neutrophils # Man Lymphocytes # (Manual) D-Dimer ABG pH POC ABG pO2 ABG pO2 ABG HCO3 ABG O2 Saturation ABG Base Excess ABG Oxyhemoglobin ABG Sodium ABG Chloride ABG Glucose Oxyhemoglobin Carboxyhemoglobin Sodium Potassium Chloride Carbon Dioxide BUN Creatinine Glucose 195 H POC Glucose Hemoglobin A1c Ferritin 254.3 H AST ALT Alkaline Phosphatase Lactate Dehydrogenase 359 H C-Reactive Protein 15.20 H Total Protein Albumin Arterial Blood Glucose Coronavirus (PCR) 04/17/21 04/17/21 04/17/21 03:50 08:26 08:26 WBC MCHC RDW Lymph % (Auto) Lymph # (Auto) Baso # (Auto) Seg Neutrophils % Seg Neuts % (Manual) Lymphocytes % (Manual) Seg Neutrophils # Seg Neutrophils # Man Lymphocytes # (Manual) D-Dimer 262.48 H ABG pH POC ABG pO2 ABG pO2 ABG HCO3 ABG O2 Saturation ABG Base Excess ABG Oxyhemoglobin ABG Sodium ABG Chloride ABG Glucose Oxyhemoglobin Carboxyhemoglobin Sodium Potassium Chloride Carbon Dioxide BUN 20 H Creatinine 0.5 L Glucose 249 H 225 H POC Glucose Hemoglobin A1c Ferritin AST ALT Alkaline Phosphatase Lactate Dehydrogenase 338 H C-Reactive Protein 17.20 H Total Protein Albumin 3.2 L Arterial Blood Glucose Coronavirus (PCR) 04/17/21 04/17/21 04/17/21 08:26 15:04 Unknown WBC MCHC RDW Lymph % (Auto) Lymph # (Auto) Baso # (Auto) Seg Neutrophils % Seg Neuts % (Manual) Lymphocytes % (Manual) Seg Neutrophils # Seg Neutrophils # Man Lymphocytes # (Manual) D-Dimer ABG pH POC ABG pO2 ABG pO2 ABG HCO3 ABG O2 Saturation ABG Base Excess ABG Oxyhemoglobin ABG Sodium ABG Chloride ABG Glucose Oxyhemoglobin Carboxyhemoglobin Sodium Potassium Chloride Carbon Dioxide BUN 20 H Creatinine 0.5 L Glucose 246 H POC Glucose Hemoglobin A1c Ferritin 392.0 H AST ALT Alkaline Phosphatase Lactate Dehydrogenase C-Reactive Protein Total Protein 8.3 H Albumin 3.1 L Arterial Blood Glucose Coronavirus (PCR) Positive A 04/18/21 04/18/21 04/18/21 05:06 05:06 07:36 WBC 11.6 H MCHC RDW 16.1 H Lymph % (Auto) Lymph # (Auto) Baso # (Auto) Seg Neutrophils % Seg Neuts % (Manual) Lymphocytes % (Manual) Seg Neutrophils # Seg Neutrophils # Man Lymphocytes # (Manual) D-Dimer ABG pH POC ABG pO2 ABG pO2 ABG HCO3 ABG O2 Saturation ABG Base Excess ABG Oxyhemoglobin ABG Sodium ABG Chloride ABG Glucose Oxyhemoglobin Carboxyhemoglobin Sodium Potassium 5.2 H Chloride Carbon Dioxide BUN 22 H Creatinine 0.5 L Glucose 315 H POC Glucose Hemoglobin A1c 8.5 H Ferritin AST ALT Alkaline Phosphatase Lactate Dehydrogenase C-Reactive Protein Total Protein Albumin 3.3 L Arterial Blood Glucose Coronavirus (PCR) 04/18/21 04/18/21 04/18/21 11:59 16:43 23:24 WBC MCHC RDW Lymph % (Auto) Lymph # (Auto) Baso # (Auto) Seg Neutrophils % Seg Neuts % (Manual) Lymphocytes % (Manual) Seg Neutrophils # Seg Neutrophils # Man Lymphocytes # (Manual) D-Dimer ABG pH POC ABG pO2 ABG pO2 ABG HCO3 ABG O2 Saturation ABG Base Excess ABG Oxyhemoglobin ABG Sodium ABG Chloride ABG Glucose Oxyhemoglobin Carboxyhemoglobin Sodium Potassium Chloride Carbon Dioxide BUN Creatinine Glucose POC Glucose 284 H 273 H 290 H Hemoglobin A1c Ferritin AST ALT Alkaline Phosphatase Lactate Dehydrogenase C-Reactive Protein Total Protein Albumin Arterial Blood Glucose Coronavirus (PCR) 04/19/21 04/19/21 04/19/21 04:19 04:19 08:10 WBC MCHC RDW 15.7 H Lymph % (Auto) Lymph # (Auto) Baso # (Auto) Seg Neutrophils % Seg Neuts % (Manual) Lymphocytes % (Manual) Seg Neutrophils # Seg Neutrophils # Man Lymphocytes # (Manual) D-Dimer ABG pH POC ABG pO2 ABG pO2 ABG HCO3 ABG O2 Saturation ABG Base Excess ABG Oxyhemoglobin ABG Sodium ABG Chloride ABG Glucose Oxyhemoglobin Carboxyhemoglobin Sodium Potassium Chloride Carbon Dioxide BUN 27 H Creatinine 0.4 L Glucose 184 H POC Glucose 194 H Hemoglobin A1c Ferritin AST ALT Alkaline Phosphatase Lactate Dehydrogenase C-Reactive Protein Total Protein Albumin 3.1 L Arterial Blood Glucose Coronavirus (PCR) 04/19/21 04/19/21 04/19/21 11:38 16:25 22:04 WBC MCHC RDW Lymph % (Auto) Lymph # (Auto) Baso # (Auto) Seg Neutrophils % Seg Neuts % (Manual) Lymphocytes % (Manual) Seg Neutrophils # Seg Neutrophils # Man Lymphocytes # (Manual) D-Dimer ABG pH POC ABG pO2 ABG pO2 ABG HCO3 ABG O2 Saturation ABG Base Excess ABG Oxyhemoglobin ABG Sodium ABG Chloride ABG Glucose Oxyhemoglobin Carboxyhemoglobin Sodium Potassium Chloride Carbon Dioxide BUN Creatinine Glucose POC Glucose 224 H 297 H 251 H Hemoglobin A1c Ferritin AST ALT Alkaline Phosphatase Lactate Dehydrogenase C-Reactive Protein Total Protein Albumin Arterial Blood Glucose Coronavirus (PCR) 04/20/21 04/20/21 04/20/21 05:28 08:43 16:21 WBC MCHC RDW Lymph % (Auto) Lymph # (Auto) Baso # (Auto) Seg Neutrophils % Seg Neuts % (Manual) Lymphocytes % (Manual) Seg Neutrophils # Seg Neutrophils # Man Lymphocytes # (Manual) D-Dimer ABG pH POC ABG pO2 ABG pO2 ABG HCO3 ABG O2 Saturation ABG Base Excess ABG Oxyhemoglobin ABG Sodium ABG Chloride ABG Glucose Oxyhemoglobin Carboxyhemoglobin Sodium Potassium Chloride Carbon Dioxide BUN 27 H Creatinine Glucose 192 H POC Glucose 173 H 253 H Hemoglobin A1c Ferritin AST ALT Alkaline Phosphatase Lactate Dehydrogenase C-Reactive Protein Total Protein Albumin 3.0 L Arterial Blood Glucose Coronavirus (PCR) 04/21/21 04/21/21 04/21/21 07:58 12:05 16:08 WBC MCHC RDW Lymph % (Auto) Lymph # (Auto) Baso # (Auto) Seg Neutrophils % Seg Neuts % (Manual) Lymphocytes % (Manual) Seg Neutrophils # Seg Neutrophils # Man Lymphocytes # (Manual) D-Dimer ABG pH POC ABG pO2 ABG pO2 ABG HCO3 ABG O2 Saturation ABG Base Excess ABG Oxyhemoglobin ABG Sodium ABG Chloride ABG Glucose Oxyhemoglobin Carboxyhemoglobin Sodium Potassium Chloride Carbon Dioxide BUN Creatinine Glucose POC Glucose 140 H 252 H 214 H Hemoglobin A1c Ferritin AST ALT Alkaline Phosphatase Lactate Dehydrogenase C-Reactive Protein Total Protein Albumin Arterial Blood Glucose Coronavirus (PCR) 04/21/21 04/22/21 04/22/21 21:42 08:37 12:01 WBC MCHC RDW Lymph % (Auto) Lymph # (Auto) Baso # (Auto) Seg Neutrophils % Seg Neuts % (Manual) Lymphocytes % (Manual) Seg Neutrophils # Seg Neutrophils # Man Lymphocytes # (Manual) D-Dimer ABG pH 7.457 H POC ABG pO2 49.4 L ABG pO2 ABG HCO3 ABG O2 Saturation ABG Base Excess ABG Oxyhemoglobin 85.6 L ABG Sodium ABG Chloride ABG Glucose 121 H Oxyhemoglobin Carboxyhemoglobin 0.3 L Sodium Potassium Chloride Carbon Dioxide BUN Creatinine Glucose POC Glucose 162 H 227 H Hemoglobin A1c Ferritin AST ALT Alkaline Phosphatase Lactate Dehydrogenase C-Reactive Protein Total Protein Albumin Arterial Blood Glucose 121 H Coronavirus (PCR) 04/22/21 04/22/21 04/23/21 16:26 22:23 04:52 WBC MCHC RDW 15.7 H Lymph % (Auto) Lymph # (Auto) Baso # (Auto) Seg Neutrophils % Seg Neuts % (Manual) Lymphocytes % (Manual) Seg Neutrophils # Seg Neutrophils # Man Lymphocytes # (Manual) D-Dimer ABG pH POC ABG pO2 ABG pO2 ABG HCO3 ABG O2 Saturation ABG Base Excess ABG Oxyhemoglobin ABG Sodium ABG Chloride ABG Glucose Oxyhemoglobin Carboxyhemoglobin Sodium Potassium Chloride Carbon Dioxide BUN Creatinine Glucose POC Glucose 200 H 136 H Hemoglobin A1c Ferritin AST ALT Alkaline Phosphatase Lactate Dehydrogenase C-Reactive Protein Total Protein Albumin Arterial Blood Glucose Coronavirus (PCR) 04/23/21 04/23/21 04/23/21 04:52 12:06 17:41 WBC MCHC RDW Lymph % (Auto) Lymph # (Auto) Baso # (Auto) Seg Neutrophils % Seg Neuts % (Manual) Lymphocytes % (Manual) Seg Neutrophils # Seg Neutrophils # Man Lymphocytes # (Manual) D-Dimer ABG pH POC ABG pO2 ABG pO2 ABG HCO3 ABG O2 Saturation ABG Base Excess ABG Oxyhemoglobin ABG Sodium ABG Chloride ABG Glucose Oxyhemoglobin Carboxyhemoglobin Sodium 136 L Potassium Chloride 97.7 L Carbon Dioxide BUN 23 H Creatinine Glucose 101 H POC Glucose 202 H 169 H Hemoglobin A1c Ferritin AST 46 H ALT Alkaline Phosphatase Lactate Dehydrogenase C-Reactive Protein Total Protein Albumin 3.3 L Arterial Blood Glucose Coronavirus (PCR) 04/23/21 04/24/21 04/24/21 23:08 05:17 08:38 WBC MCHC RDW Lymph % (Auto) Lymph # (Auto) Baso # (Auto) Seg Neutrophils % Seg Neuts % (Manual) Lymphocytes % (Manual) Seg Neutrophils # Seg Neutrophils # Man Lymphocytes # (Manual) D-Dimer ABG pH POC ABG pO2 ABG pO2 ABG HCO3 ABG O2 Saturation ABG Base Excess ABG Oxyhemoglobin ABG Sodium ABG Chloride ABG Glucose Oxyhemoglobin Carboxyhemoglobin Sodium Potassium Chloride Carbon Dioxide BUN Creatinine Glucose POC Glucose 111 H 108 H 126 H Hemoglobin A1c Ferritin AST ALT Alkaline Phosphatase Lactate Dehydrogenase C-Reactive Protein Total Protein Albumin Arterial Blood Glucose Coronavirus (PCR) 04/24/21 04/24/21 04/24/21 11:54 17:57 21:23 WBC MCHC RDW Lymph % (Auto) Lymph # (Auto) Baso # (Auto) Seg Neutrophils % Seg Neuts % (Manual) Lymphocytes % (Manual) Seg Neutrophils # Seg Neutrophils # Man Lymphocytes # (Manual) D-Dimer ABG pH POC ABG pO2 ABG pO2 ABG HCO3 ABG O2 Saturation ABG Base Excess ABG Oxyhemoglobin ABG Sodium ABG Chloride ABG Glucose Oxyhemoglobin Carboxyhemoglobin Sodium Potassium Chloride Carbon Dioxide BUN Creatinine Glucose POC Glucose 147 H 177 H 138 H Hemoglobin A1c Ferritin AST ALT Alkaline Phosphatase Lactate Dehydrogenase C-Reactive Protein Total Protein Albumin Arterial Blood Glucose Coronavirus (PCR) 04/25/21 04/25/21 04/25/21 07:06 11:23 15:43 WBC MCHC RDW Lymph % (Auto) Lymph # (Auto) Baso # (Auto) Seg Neutrophils % Seg Neuts % (Manual) Lymphocytes % (Manual) Seg Neutrophils # Seg Neutrophils # Man Lymphocytes # (Manual) D-Dimer ABG pH POC ABG pO2 ABG pO2 ABG HCO3 ABG O2 Saturation ABG Base Excess ABG Oxyhemoglobin ABG Sodium ABG Chloride ABG Glucose Oxyhemoglobin Carboxyhemoglobin Sodium Potassium Chloride Carbon Dioxide BUN Creatinine Glucose POC Glucose 147 H 169 H 227 H Hemoglobin A1c Ferritin AST ALT Alkaline Phosphatase Lactate Dehydrogenase C-Reactive Protein Total Protein Albumin Arterial Blood Glucose Coronavirus (PCR) 04/25/21 04/26/21 04/26/21 21:22 02:45 05:15 WBC MCHC RDW Lymph % (Auto) Lymph # (Auto) Baso # (Auto) Seg Neutrophils % Seg Neuts % (Manual) Lymphocytes % (Manual) Seg Neutrophils # Seg Neutrophils # Man Lymphocytes # (Manual) D-Dimer ABG pH POC ABG pO2 70.7 L ABG pO2 ABG HCO3 ABG O2 Saturation ABG Base Excess ABG Oxyhemoglobin 93.0 L ABG Sodium 132.7 L ABG Chloride ABG Glucose 115 H Oxyhemoglobin Carboxyhemoglobin Sodium Potassium Chloride 95.8 L Carbon Dioxide 32 H BUN 20 H Creatinine Glucose 102 H POC Glucose 196 H Hemoglobin A1c Ferritin AST ALT Alkaline Phosphatase Lactate Dehydrogenase C-Reactive Protein Total Protein Albumin Arterial Blood Glucose 115 H Coronavirus (PCR) 04/26/21 04/26/21 04/26/21 11:49 16:09 21:07 WBC MCHC RDW Lymph % (Auto) Lymph # (Auto) Baso # (Auto) Seg Neutrophils % Seg Neuts % (Manual) Lymphocytes % (Manual) Seg Neutrophils # Seg Neutrophils # Man Lymphocytes # (Manual) D-Dimer ABG pH POC ABG pO2 ABG pO2 ABG HCO3 ABG O2 Saturation ABG Base Excess ABG Oxyhemoglobin ABG Sodium ABG Chloride ABG Glucose Oxyhemoglobin Carboxyhemoglobin Sodium Potassium Chloride Carbon Dioxide BUN Creatinine Glucose POC Glucose 114 H 188 H 136 H Hemoglobin A1c Ferritin AST ALT Alkaline Phosphatase Lactate Dehydrogenase C-Reactive Protein Total Protein Albumin Arterial Blood Glucose Coronavirus (PCR) 04/27/21 04/27/21 04/28/21 17:34 22:12 08:26 WBC MCHC RDW Lymph % (Auto) Lymph # (Auto) Baso # (Auto) Seg Neutrophils % Seg Neuts % (Manual) Lymphocytes % (Manual) Seg Neutrophils # Seg Neutrophils # Man Lymphocytes # (Manual) D-Dimer ABG pH POC ABG pO2 ABG pO2 ABG HCO3 ABG O2 Saturation ABG Base Excess ABG Oxyhemoglobin ABG Sodium ABG Chloride ABG Glucose Oxyhemoglobin Carboxyhemoglobin Sodium Potassium Chloride Carbon Dioxide BUN Creatinine Glucose POC Glucose 128 H 159 H 69 L Hemoglobin A1c Ferritin AST ALT Alkaline Phosphatase Lactate Dehydrogenase C-Reactive Protein Total Protein Albumin Arterial Blood Glucose Coronavirus (PCR) 04/28/21 04/28/21 04/29/21 12:22 21:11 06:05 WBC MCHC RDW Lymph % (Auto) Lymph # (Auto) Baso # (Auto) Seg Neutrophils % Seg Neuts % (Manual) Lymphocytes % (Manual) Seg Neutrophils # Seg Neutrophils # Man Lymphocytes # (Manual) D-Dimer ABG pH POC ABG pO2 ABG pO2 ABG HCO3 ABG O2 Saturation ABG Base Excess ABG Oxyhemoglobin ABG Sodium ABG Chloride ABG Glucose Oxyhemoglobin Carboxyhemoglobin Sodium 132 L Potassium Chloride 94.4 L Carbon Dioxide BUN Creatinine 0.2 L D Glucose 140 H POC Glucose 141 H 171 H Hemoglobin A1c Ferritin AST ALT Alkaline Phosphatase Lactate Dehydrogenase C-Reactive Protein Total Protein Albumin Arterial Blood Glucose Coronavirus (PCR) 04/29/21 04/29/21 04/29/21 06:05 07:24 11:36 WBC MCHC 35 H RDW 15.9 H Lymph % (Auto) Lymph # (Auto) Baso # (Auto) Seg Neutrophils % Seg Neuts % (Manual) Lymphocytes % (Manual) Seg Neutrophils # Seg Neutrophils # Man Lymphocytes # (Manual) D-Dimer ABG pH POC ABG pO2 ABG pO2 ABG HCO3 ABG O2 Saturation ABG Base Excess ABG Oxyhemoglobin ABG Sodium ABG Chloride ABG Glucose Oxyhemoglobin Carboxyhemoglobin Sodium Potassium Chloride Carbon Dioxide BUN Creatinine Glucose POC Glucose 141 H 220 H Hemoglobin A1c Ferritin AST ALT Alkaline Phosphatase Lactate Dehydrogenase C-Reactive Protein Total Protein Albumin Arterial Blood Glucose Coronavirus (PCR) 04/29/21 04/29/21 04/29/21 14:23 15:30 17:06 WBC MCHC RDW Lymph % (Auto) Lymph # (Auto) Baso # (Auto) Seg Neutrophils % Seg Neuts % (Manual) Lymphocytes % (Manual) Seg Neutrophils # Seg Neutrophils # Man Lymphocytes # (Manual) D-Dimer ABG pH POC ABG pO2 ABG pO2 52.6 L ABG HCO3 ABG O2 Saturation 86.4 L ABG Base Excess ABG Oxyhemoglobin ABG Sodium ABG Chloride ABG Glucose Oxyhemoglobin 84.6 L Carboxyhemoglobin Sodium Potassium Chloride Carbon Dioxide BUN Creatinine Glucose POC Glucose 173 H 158 H Hemoglobin A1c Ferritin AST ALT Alkaline Phosphatase Lactate Dehydrogenase C-Reactive Protein Total Protein Albumin Arterial Blood Glucose Coronavirus (PCR) 08/16/21 08/17/21 08/17/21 21:27 07:16 08:00 WBC MCHC RDW 16.1 H Lymph % (Auto) Lymph # (Auto) Baso # (Auto) Seg Neutrophils % Seg Neuts % (Manual) Lymphocytes % (Manual) Seg Neutrophils # Seg Neutrophils # Man Lymphocytes # (Manual) D-Dimer ABG pH POC ABG pO2 ABG pO2 ABG HCO3 ABG O2 Saturation ABG Base Excess ABG Oxyhemoglobin ABG Sodium ABG Chloride ABG Glucose Oxyhemoglobin Carboxyhemoglobin Sodium Potassium Chloride Carbon Dioxide BUN Creatinine Glucose POC Glucose 244 H 175 H Hemoglobin A1c Ferritin AST ALT Alkaline Phosphatase Lactate Dehydrogenase C-Reactive Protein Total Protein Albumin Arterial Blood Glucose Coronavirus (PCR) 04/30/21 04/30/21 04/30/21 08:00 08:00 11:03 WBC MCHC RDW Lymph % (Auto) Lymph # (Auto) Baso # (Auto) Seg Neutrophils % Seg Neuts % (Manual) Lymphocytes % (Manual) Seg Neutrophils # Seg Neutrophils # Man Lymphocytes # (Manual) D-Dimer 1796.87 H ABG pH POC ABG pO2 ABG pO2 ABG HCO3 ABG O2 Saturation ABG Base Excess ABG Oxyhemoglobin ABG Sodium ABG Chloride ABG Glucose Oxyhemoglobin Carboxyhemoglobin Sodium 135 L Potassium Chloride 96.3 L Carbon Dioxide BUN Creatinine 0.2 L Glucose 153 H POC Glucose 183 H Hemoglobin A1c Ferritin AST 41 H ALT 76 H Alkaline Phosphatase 160 H Lactate Dehydrogenase 522 H C-Reactive Protein Total Protein 6.1 L Albumin 3.1 L Arterial Blood Glucose Coronavirus (PCR) 04/30/21 04/30/21 05/01/21 17:04 22:17 05:39 WBC MCHC RDW Lymph % (Auto) Lymph # (Auto) Baso # (Auto) Seg Neutrophils % Seg Neuts % (Manual) Lymphocytes % (Manual) Seg Neutrophils # Seg Neutrophils # Man Lymphocytes # (Manual) D-Dimer ABG pH POC ABG pO2 ABG pO2 ABG HCO3 ABG O2 Saturation ABG Base Excess ABG Oxyhemoglobin ABG Sodium ABG Chloride ABG Glucose Oxyhemoglobin Carboxyhemoglobin Sodium 133 L Potassium Chloride 92.1 L Carbon Dioxide BUN 24 H Creatinine 0.4 L D Glucose 269 H POC Glucose 167 H 208 H Hemoglobin A1c Ferritin AST ALT 66 H Alkaline Phosphatase 142 H Lactate Dehydrogenase C-Reactive Protein Total Protein Albumin 3.2 L Arterial Blood Glucose Coronavirus (PCR) 05/01/21 05/01/21 05/01/21 05:39 05:39 07:45 WBC MCHC RDW 16.0 H Lymph % (Auto) Lymph # (Auto) Baso # (Auto) Seg Neutrophils % Seg Neuts % (Manual) Lymphocytes % (Manual) Seg Neutrophils # Seg Neutrophils # Man Lymphocytes # (Manual) D-Dimer 3984.95 H ABG pH POC ABG pO2 ABG pO2 ABG HCO3 ABG O2 Saturation ABG Base Excess ABG Oxyhemoglobin ABG Sodium ABG Chloride ABG Glucose Oxyhemoglobin Carboxyhemoglobin Sodium Potassium Chloride Carbon Dioxide BUN Creatinine Glucose POC Glucose 229 H Hemoglobin A1c Ferritin AST ALT Alkaline Phosphatase Lactate Dehydrogenase C-Reactive Protein Total Protein Albumin Arterial Blood Glucose Coronavirus (PCR) 05/01/21 05/01/21 05/01/21 12:10 15:46 21:06 WBC MCHC RDW Lymph % (Auto) Lymph # (Auto) Baso # (Auto) Seg Neutrophils % Seg Neuts % (Manual) Lymphocytes % (Manual) Seg Neutrophils # Seg Neutrophils # Man Lymphocytes # (Manual) D-Dimer ABG pH POC ABG pO2 ABG pO2 ABG HCO3 ABG O2 Saturation ABG Base Excess ABG Oxyhemoglobin ABG Sodium ABG Chloride ABG Glucose Oxyhemoglobin Carboxyhemoglobin Sodium Potassium Chloride Carbon Dioxide BUN Creatinine Glucose POC Glucose 296 H 279 H 232 H Hemoglobin A1c Ferritin AST ALT Alkaline Phosphatase Lactate Dehydrogenase C-Reactive Protein Total Protein Albumin Arterial Blood Glucose Coronavirus (PCR) 05/02/21 05/02/21 05/02/21 04:55 04:55 04:55 WBC MCHC RDW 16.1 H Lymph % (Auto) Lymph # (Auto) Baso # (Auto) Seg Neutrophils % Seg Neuts % (Manual) Lymphocytes % (Manual) Seg Neutrophils # Seg Neutrophils # Man Lymphocytes # (Manual) D-Dimer 1401.08 H ABG pH POC ABG pO2 ABG pO2 ABG HCO3 ABG O2 Saturation ABG Base Excess ABG Oxyhemoglobin ABG Sodium ABG Chloride ABG Glucose Oxyhemoglobin Carboxyhemoglobin Sodium 131 L Potassium Chloride 95.5 L Carbon Dioxide BUN 20 H Creatinine 0.3 L Glucose 288 H POC Glucose Hemoglobin A1c Ferritin AST ALT Alkaline Phosphatase Lactate Dehydrogenase C-Reactive Protein Total Protein 6.0 L Albumin 3.1 L Arterial Blood Glucose Coronavirus (PCR) 05/02/21 05/02/21 05/02/21 07:53 11:45 15:25 WBC MCHC RDW Lymph % (Auto) Lymph # (Auto) Baso # (Auto) Seg Neutrophils % Seg Neuts % (Manual) Lymphocytes % (Manual) Seg Neutrophils # Seg Neutrophils # Man Lymphocytes # (Manual) D-Dimer ABG pH POC ABG pO2 ABG pO2 ABG HCO3 ABG O2 Saturation ABG Base Excess ABG Oxyhemoglobin ABG Sodium ABG Chloride ABG Glucose Oxyhemoglobin Carboxyhemoglobin Sodium Potassium Chloride Carbon Dioxide BUN Creatinine Glucose POC Glucose 180 H 228 H 275 H Hemoglobin A1c Ferritin AST ALT Alkaline Phosphatase Lactate Dehydrogenase C-Reactive Protein Total Protein Albumin Arterial Blood Glucose Coronavirus (PCR) 05/02/21 05/03/21 05/03/21 22:56 04:30 04:49 WBC MCHC RDW Lymph % (Auto) Lymph # (Auto) Baso # (Auto) Seg Neutrophils % Seg Neuts % (Manual) Lymphocytes % (Manual) Seg Neutrophils # Seg Neutrophils # Man Lymphocytes # (Manual) D-Dimer ABG pH 7.229 L POC ABG pO2 65.3 L ABG pO2 ABG HCO3 ABG O2 Saturation ABG Base Excess ABG Oxyhemoglobin 87.8 L ABG Sodium 133.0 L ABG Chloride 97.0 L ABG Glucose 403 H Oxyhemoglobin Carboxyhemoglobin Sodium 130 L Potassium Chloride 94.9 L Carbon Dioxide BUN 20 H Creatinine 0.5 L D Glucose 359 H POC Glucose 293 H Hemoglobin A1c Ferritin AST 54 H ALT 75 H Alkaline Phosphatase 138 H Lactate Dehydrogenase C-Reactive Protein Total Protein Albumin 3.6 L Arterial Blood Glucose 403 H Coronavirus (PCR) 05/03/21 05/03/21 05/03/21 05:27 11:26 17:57 WBC MCHC RDW Lymph % (Auto) Lymph # (Auto) Baso # (Auto) Seg Neutrophils % Seg Neuts % (Manual) Lymphocytes % (Manual) Seg Neutrophils # Seg Neutrophils # Man Lymphocytes # (Manual) D-Dimer ABG pH POC ABG pO2 ABG pO2 ABG HCO3 ABG O2 Saturation ABG Base Excess ABG Oxyhemoglobin ABG Sodium ABG Chloride ABG Glucose Oxyhemoglobin Carboxyhemoglobin Sodium Potassium Chloride Carbon Dioxide BUN Creatinine Glucose POC Glucose 361 H 297 H 226 H Hemoglobin A1c Ferritin AST ALT Alkaline Phosphatase Lactate Dehydrogenase C-Reactive Protein Total Protein Albumin Arterial Blood Glucose Coronavirus (PCR) 05/03/21 05/04/21 05/04/21 23:12 05:12 07:30 WBC MCHC RDW Lymph % (Auto) Lymph # (Auto) Baso # (Auto) Seg Neutrophils % Seg Neuts % (Manual) Lymphocytes % (Manual) Seg Neutrophils # Seg Neutrophils # Man Lymphocytes # (Manual) D-Dimer ABG pH POC ABG pO2 ABG pO2 ABG HCO3 ABG O2 Saturation ABG Base Excess ABG Oxyhemoglobin ABG Sodium ABG Chloride ABG Glucose Oxyhemoglobin Carboxyhemoglobin Sodium Potassium Chloride Carbon Dioxide BUN Creatinine Glucose POC Glucose 282 H 285 H 254 H Hemoglobin A1c Ferritin AST ALT Alkaline Phosphatase Lactate Dehydrogenase C-Reactive Protein Total Protein Albumin Arterial Blood Glucose Coronavirus (PCR) 05/04/21 05/04/21 05/04/21 08:58 11:45 16:07 WBC MCHC RDW Lymph % (Auto) Lymph # (Auto) Baso # (Auto) Seg Neutrophils % Seg Neuts % (Manual) Lymphocytes % (Manual) Seg Neutrophils # Seg Neutrophils # Man Lymphocytes # (Manual) D-Dimer ABG pH POC ABG pO2 ABG pO2 ABG HCO3 ABG O2 Saturation ABG Base Excess ABG Oxyhemoglobin ABG Sodium ABG Chloride ABG Glucose Oxyhemoglobin Carboxyhemoglobin Sodium 134 L Potassium Chloride Carbon Dioxide BUN 20 H Creatinine 0.3 L Glucose 267 H POC Glucose 244 H 297 H Hemoglobin A1c Ferritin AST ALT Alkaline Phosphatase Lactate Dehydrogenase C-Reactive Protein Total Protein 6.0 L Albumin 3.2 L Arterial Blood Glucose Coronavirus (PCR) 05/04/21 05/05/21 05/05/21 23:32 05:00 05:13 WBC MCHC RDW Lymph % (Auto) Lymph # (Auto) Baso # (Auto) Seg Neutrophils % Seg Neuts % (Manual) Lymphocytes % (Manual) Seg Neutrophils # Seg Neutrophils # Man Lymphocytes # (Manual) D-Dimer ABG pH POC ABG pO2 ABG pO2 ABG HCO3 ABG O2 Saturation ABG Base Excess ABG Oxyhemoglobin ABG Sodium ABG Chloride ABG Glucose Oxyhemoglobin Carboxyhemoglobin Sodium 132 L Potassium Chloride 96.4 L Carbon Dioxide BUN 22 H Creatinine 0.3 L Glucose 228 H POC Glucose 154 H 260 H Hemoglobin A1c Ferritin AST ALT 67 H Alkaline Phosphatase Lactate Dehydrogenase C-Reactive Protein Total Protein 6.1 L Albumin 3.2 L Arterial Blood Glucose Coronavirus (PCR) 05/05/21 05/05/21 05/05/21 11:32 17:49 23:07 WBC MCHC RDW Lymph % (Auto) Lymph # (Auto) Baso # (Auto) Seg Neutrophils % Seg Neuts % (Manual) Lymphocytes % (Manual) Seg Neutrophils # Seg Neutrophils # Man Lymphocytes # (Manual) D-Dimer ABG pH POC ABG pO2 ABG pO2 ABG HCO3 ABG O2 Saturation ABG Base Excess ABG Oxyhemoglobin ABG Sodium ABG Chloride ABG Glucose Oxyhemoglobin Carboxyhemoglobin Sodium Potassium Chloride Carbon Dioxide BUN Creatinine Glucose POC Glucose 279 H 308 H 213 H Hemoglobin A1c Ferritin AST ALT Alkaline Phosphatase Lactate Dehydrogenase C-Reactive Protein Total Protein Albumin Arterial Blood Glucose Coronavirus (PCR) 05/06/21 05/06/21 05/06/21 05:00 05:00 05:20 WBC MCHC RDW 16.8 H Lymph % (Auto) Lymph # (Auto) Baso # (Auto) Seg Neutrophils % Seg Neuts % (Manual) 99.0 H Lymphocytes % (Manual) Seg Neutrophils # Seg Neutrophils # Man 10.9 H Lymphocytes # (Manual) 0.0 L D-Dimer ABG pH POC ABG pO2 ABG pO2 ABG HCO3 ABG O2 Saturation ABG Base Excess ABG Oxyhemoglobin ABG Sodium ABG Chloride ABG Glucose Oxyhemoglobin Carboxyhemoglobin Sodium 133 L Potassium Chloride Carbon Dioxide BUN 21 H Creatinine 0.3 L Glucose 259 H POC Glucose 308 H Hemoglobin A1c Ferritin AST ALT Alkaline Phosphatase Lactate Dehydrogenase C-Reactive Protein Total Protein Albumin 3.2 L Arterial Blood Glucose Coronavirus (PCR) 05/06/21 05/06/21 05/06/21 11:24 17:54 21:32 WBC MCHC RDW Lymph % (Auto) Lymph # (Auto) Baso # (Auto) Seg Neutrophils % Seg Neuts % (Manual) Lymphocytes % (Manual) Seg Neutrophils # Seg Neutrophils # Man Lymphocytes # (Manual) D-Dimer ABG pH POC ABG pO2 ABG pO2 ABG HCO3 ABG O2 Saturation ABG Base Excess ABG Oxyhemoglobin ABG Sodium ABG Chloride ABG Glucose Oxyhemoglobin Carboxyhemoglobin Sodium Potassium Chloride Carbon Dioxide BUN Creatinine Glucose POC Glucose 262 H 124 H 246 H Hemoglobin A1c Ferritin AST ALT Alkaline Phosphatase Lactate Dehydrogenase C-Reactive Protein Total Protein Albumin Arterial Blood Glucose Coronavirus (PCR) 05/06/21 05/07/21 05/07/21 23:10 04:54 04:54 WBC MCHC RDW Lymph % (Auto) Lymph # (Auto) Baso # (Auto) Seg Neutrophils % Seg Neuts % (Manual) Lymphocytes % (Manual) Seg Neutrophils # Seg Neutrophils # Man Lymphocytes # (Manual) D-Dimer 1609.28 H ABG pH POC ABG pO2 ABG pO2 ABG HCO3 ABG O2 Saturation ABG Base Excess ABG Oxyhemoglobin ABG Sodium ABG Chloride ABG Glucose Oxyhemoglobin Carboxyhemoglobin Sodium 136 L Potassium Chloride Carbon Dioxide BUN 23 H Creatinine 0.3 L Glucose 110 H POC Glucose 249 H Hemoglobin A1c Ferritin AST ALT Alkaline Phosphatase Lactate Dehydrogenase C-Reactive Protein Total Protein 6.2 L Albumin 3.0 L Arterial Blood Glucose Coronavirus (PCR) 05/07/21 05/07/21 05/07/21 04:54 04:54 11:41 WBC MCHC RDW Lymph % (Auto) Lymph # (Auto) Baso # (Auto) Seg Neutrophils % Seg Neuts % (Manual) Lymphocytes % (Manual) Seg Neutrophils # Seg Neutrophils # Man Lymphocytes # (Manual) D-Dimer ABG pH POC ABG pO2 ABG pO2 ABG HCO3 ABG O2 Saturation ABG Base Excess ABG Oxyhemoglobin ABG Sodium ABG Chloride ABG Glucose Oxyhemoglobin Carboxyhemoglobin Sodium Potassium Chloride Carbon Dioxide BUN Creatinine Glucose POC Glucose 118 H Hemoglobin A1c Ferritin 296.1 H AST ALT Alkaline Phosphatase Lactate Dehydrogenase 724 H C-Reactive Protein Total Protein Albumin Arterial Blood Glucose Coronavirus (PCR) 05/07/21 05/07/21 05/08/21 16:43 22:34 06:44 WBC MCHC RDW Lymph % (Auto) Lymph # (Auto) Baso # (Auto) Seg Neutrophils % Seg Neuts % (Manual) Lymphocytes % (Manual) Seg Neutrophils # Seg Neutrophils # Man Lymphocytes # (Manual) D-Dimer ABG pH POC ABG pO2 ABG pO2 ABG HCO3 ABG O2 Saturation ABG Base Excess ABG Oxyhemoglobin ABG Sodium ABG Chloride ABG Glucose Oxyhemoglobin Carboxyhemoglobin Sodium Potassium Chloride Carbon Dioxide BUN Creatinine Glucose POC Glucose 159 H 233 H 235 H Hemoglobin A1c Ferritin AST ALT Alkaline Phosphatase Lactate Dehydrogenase C-Reactive Protein Total Protein Albumin Arterial Blood Glucose Coronavirus (PCR) 05/08/21 05/08/21 05/08/21 07:49 11:56 17:13 WBC MCHC RDW Lymph % (Auto) Lymph # (Auto) Baso # (Auto) Seg Neutrophils % Seg Neuts % (Manual) Lymphocytes % (Manual) Seg Neutrophils # Seg Neutrophils # Man Lymphocytes # (Manual) D-Dimer ABG pH POC ABG pO2 ABG pO2 ABG HCO3 ABG O2 Saturation ABG Base Excess ABG Oxyhemoglobin ABG Sodium ABG Chloride ABG Glucose Oxyhemoglobin Carboxyhemoglobin Sodium Potassium Chloride Carbon Dioxide BUN Creatinine Glucose POC Glucose 219 H 184 H 182 H Hemoglobin A1c Ferritin AST ALT Alkaline Phosphatase Lactate Dehydrogenase C-Reactive Protein Total Protein Albumin Arterial Blood Glucose Coronavirus (PCR) 05/08/21 05/09/21 05/09/21 23:35 05:20 05:20 WBC MCHC RDW Lymph % (Auto) Lymph # (Auto) Baso # (Auto) Seg Neutrophils % Seg Neuts % (Manual) Lymphocytes % (Manual) Seg Neutrophils # Seg Neutrophils # Man Lymphocytes # (Manual) D-Dimer 1003.87 H ABG pH POC ABG pO2 ABG pO2 ABG HCO3 ABG O2 Saturation ABG Base Excess ABG Oxyhemoglobin ABG Sodium ABG Chloride ABG Glucose Oxyhemoglobin Carboxyhemoglobin Sodium Potassium Chloride Carbon Dioxide BUN Creatinine Glucose POC Glucose 198 H Hemoglobin A1c Ferritin 378.7 H AST ALT Alkaline Phosphatase Lactate Dehydrogenase C-Reactive Protein Total Protein Albumin Arterial Blood Glucose Coronavirus (PCR) 05/09/21 05/09/21 05/09/21 05:20 06:04 12:53 WBC MCHC RDW Lymph % (Auto) Lymph # (Auto) Baso # (Auto) Seg Neutrophils % Seg Neuts % (Manual) Lymphocytes % (Manual) Seg Neutrophils # Seg Neutrophils # Man Lymphocytes # (Manual) D-Dimer ABG pH POC ABG pO2 ABG pO2 ABG HCO3 ABG O2 Saturation ABG Base Excess ABG Oxyhemoglobin ABG Sodium ABG Chloride ABG Glucose Oxyhemoglobin Carboxyhemoglobin Sodium Potassium Chloride Carbon Dioxide BUN Creatinine Glucose POC Glucose 159 H 180 H Hemoglobin A1c Ferritin AST ALT Alkaline Phosphatase Lactate Dehydrogenase 558 H C-Reactive Protein 2.40 H Total Protein Albumin Arterial Blood Glucose Coronavirus (PCR) 08/26/21 08/26/21 08/27/21 16:43 21:27 10:18 WBC MCHC RDW Lymph % (Auto) Lymph # (Auto) Baso # (Auto) Seg Neutrophils % Seg Neuts % (Manual) Lymphocytes % (Manual) Seg Neutrophils # Seg Neutrophils # Man Lymphocytes # (Manual) D-Dimer ABG pH POC ABG pO2 ABG pO2 ABG HCO3 ABG O2 Saturation ABG Base Excess ABG Oxyhemoglobin ABG Sodium ABG Chloride ABG Glucose Oxyhemoglobin Carboxyhemoglobin Sodium Potassium Chloride Carbon Dioxide BUN Creatinine Glucose POC Glucose 212 H 285 H 261 H Hemoglobin A1c Ferritin AST ALT Alkaline Phosphatase Lactate Dehydrogenase C-Reactive Protein Total Protein Albumin Arterial Blood Glucose Coronavirus (PCR) 05/10/21 05/10/21 05/11/21 17:58 18:02 00:29 WBC MCHC RDW Lymph % (Auto) Lymph # (Auto) Baso # (Auto) Seg Neutrophils % Seg Neuts % (Manual) Lymphocytes % (Manual) Seg Neutrophils # Seg Neutrophils # Man Lymphocytes # (Manual) D-Dimer ABG pH POC ABG pO2 ABG pO2 ABG HCO3 ABG O2 Saturation ABG Base Excess ABG Oxyhemoglobin ABG Sodium ABG Chloride ABG Glucose Oxyhemoglobin Carboxyhemoglobin Sodium Potassium Chloride Carbon Dioxide BUN Creatinine Glucose POC Glucose 213 H 179 H 149 H Hemoglobin A1c Ferritin AST ALT Alkaline Phosphatase Lactate Dehydrogenase C-Reactive Protein Total Protein Albumin Arterial Blood Glucose Coronavirus (PCR) 05/11/21 05/11/21 05/11/21 05:22 11:32 17:00 WBC 14.9 H MCHC RDW 18.9 H Lymph % (Auto) 4.9 L Lymph # (Auto) 0.7 L Baso # (Auto) 0.2 H Seg Neutrophils % Seg Neuts % (Manual) Lymphocytes % (Manual) Seg Neutrophils # 13.3 H Seg Neutrophils # Man Lymphocytes # (Manual) D-Dimer ABG pH POC ABG pO2 ABG pO2 ABG HCO3 ABG O2 Saturation ABG Base Excess ABG Oxyhemoglobin ABG Sodium ABG Chloride ABG Glucose Oxyhemoglobin Carboxyhemoglobin Sodium Potassium Chloride Carbon Dioxide BUN Creatinine Glucose POC Glucose 162 H 179 H Hemoglobin A1c Ferritin AST ALT Alkaline Phosphatase Lactate Dehydrogenase C-Reactive Protein Total Protein Albumin Arterial Blood Glucose Coronavirus (PCR) 05/11/21 05/11/21 05/11/21 17:00 17:33 22:03 WBC MCHC RDW Lymph % (Auto) Lymph # (Auto) Baso # (Auto) Seg Neutrophils % Seg Neuts % (Manual) Lymphocytes % (Manual) Seg Neutrophils # Seg Neutrophils # Man Lymphocytes # (Manual) D-Dimer ABG pH POC ABG pO2 ABG pO2 ABG HCO3 ABG O2 Saturation ABG Base Excess ABG Oxyhemoglobin ABG Sodium ABG Chloride ABG Glucose Oxyhemoglobin Carboxyhemoglobin Sodium 135 L Potassium Chloride 97.3 L Carbon Dioxide BUN 21 H Creatinine 0.3 L Glucose 133 H POC Glucose 140 H 282 H Hemoglobin A1c Ferritin AST ALT 60 H Alkaline Phosphatase Lactate Dehydrogenase C-Reactive Protein Total Protein Albumin 3.1 L Arterial Blood Glucose Coronavirus (PCR) 05/12/21 05/12/21 05/12/21 04:05 04:05 04:05 WBC MCHC RDW 18.4 H Lymph % (Auto) Lymph # (Auto) Baso # (Auto) Seg Neutrophils % Seg Neuts % (Manual) 94.0 H Lymphocytes % (Manual) 4.0 L Seg Neutrophils # Seg Neutrophils # Man Lymphocytes # (Manual) 0.3 L D-Dimer ABG pH POC ABG pO2 ABG pO2 ABG HCO3 ABG O2 Saturation ABG Base Excess ABG Oxyhemoglobin ABG Sodium ABG Chloride ABG Glucose Oxyhemoglobin Carboxyhemoglobin Sodium 136 L Potassium Chloride Carbon Dioxide BUN 18 H Creatinine 0.2 L Glucose 142 H POC Glucose Hemoglobin A1c Ferritin 350.7 H AST ALT Alkaline Phosphatase Lactate Dehydrogenase 546 H C-Reactive Protein Total Protein 6.1 L Albumin 3.0 L Arterial Blood Glucose Coronavirus (PCR) 05/12/21 05/12/21 05/12/21 05:11 11:17 16:27 WBC MCHC RDW Lymph % (Auto) Lymph # (Auto) Baso # (Auto) Seg Neutrophils % Seg Neuts % (Manual) Lymphocytes % (Manual) Seg Neutrophils # Seg Neutrophils # Man Lymphocytes # (Manual) D-Dimer ABG pH POC ABG pO2 ABG pO2 ABG HCO3 ABG O2 Saturation ABG Base Excess ABG Oxyhemoglobin ABG Sodium ABG Chloride ABG Glucose Oxyhemoglobin Carboxyhemoglobin Sodium Potassium Chloride Carbon Dioxide BUN Creatinine Glucose POC Glucose 152 H 190 H 261 H Hemoglobin A1c Ferritin AST ALT Alkaline Phosphatase Lactate Dehydrogenase C-Reactive Protein Total Protein Albumin Arterial Blood Glucose Coronavirus (PCR) 05/12/21 05/13/2121 20:55 11:08 21:41 WBC MCHC RDW Lymph % (Auto) Lymph # (Auto) Baso # (Auto) Seg Neutrophils % Seg Neuts % (Manual) Lymphocytes % (Manual) Seg Neutrophils # Seg Neutrophils # Man Lymphocytes # (Manual) D-Dimer ABG pH POC ABG pO2 ABG pO2 ABG HCO3 ABG O2 Saturation ABG Base Excess ABG Oxyhemoglobin ABG Sodium ABG Chloride ABG Glucose Oxyhemoglobin Carboxyhemoglobin Sodium Potassium Chloride Carbon Dioxide BUN Creatinine Glucose POC Glucose 231 H 106 H 174 H Hemoglobin A1c Ferritin AST ALT Alkaline Phosphatase Lactate Dehydrogenase C-Reactive Protein Total Protein Albumin Arterial Blood Glucose Coronavirus (PCR) 05/14/21 05/14/21 05/14/21 00:53 02:23 06:06 WBC MCHC RDW Lymph % (Auto) Lymph # (Auto) Baso # (Auto) Seg Neutrophils % Seg Neuts % (Manual) Lymphocytes % (Manual) Seg Neutrophils # Seg Neutrophils # Man Lymphocytes # (Manual) D-Dimer ABG pH POC ABG pO2 ABG pO2 130.3 H ABG HCO3 30.6 H ABG O2 Saturation ABG Base Excess 4.9 H ABG Oxyhemoglobin ABG Sodium ABG Chloride ABG Glucose Oxyhemoglobin Carboxyhemoglobin Sodium Potassium Chloride Carbon Dioxide BUN Creatinine Glucose POC Glucose 229 H 119 H Hemoglobin A1c Ferritin AST ALT Alkaline Phosphatase Lactate Dehydrogenase C-Reactive Protein Total Protein Albumin Arterial Blood Glucose Coronavirus (PCR) 05/14/21 05/14/21 05/14/21 07:13 07:13 07:13 WBC MCHC RDW Lymph % (Auto) Lymph # (Auto) Baso # (Auto) Seg Neutrophils % Seg Neuts % (Manual) Lymphocytes % (Manual) Seg Neutrophils # Seg Neutrophils # Man Lymphocytes # (Manual) D-Dimer 712.80 H ABG pH POC ABG pO2 ABG pO2 ABG HCO3 ABG O2 Saturation ABG Base Excess ABG Oxyhemoglobin ABG Sodium ABG Chloride ABG Glucose Oxyhemoglobin Carboxyhemoglobin Sodium 133 L Potassium Chloride 95.5 L Carbon Dioxide 32 H BUN Creatinine 0.2 L Glucose 137 H POC Glucose Hemoglobin A1c Ferritin 283.5 H AST ALT 63 H Alkaline Phosphatase Lactate Dehydrogenase 563 H C-Reactive Protein Total Protein 6.1 L Albumin 3.0 L Arterial Blood Glucose Coronavirus (PCR) 05/14/21 05/14/21 05/14/21 12:21 15:33 21:50 WBC MCHC RDW Lymph % (Auto) Lymph # (Auto) Baso # (Auto) Seg Neutrophils % Seg Neuts % (Manual) Lymphocytes % (Manual) Seg Neutrophils # Seg Neutrophils # Man Lymphocytes # (Manual) D-Dimer ABG pH POC ABG pO2 ABG pO2 ABG HCO3 ABG O2 Saturation ABG Base Excess ABG Oxyhemoglobin ABG Sodium ABG Chloride ABG Glucose Oxyhemoglobin Carboxyhemoglobin Sodium Potassium Chloride Carbon Dioxide BUN Creatinine Glucose POC Glucose 143 H 204 H 202 H Hemoglobin A1c Ferritin AST ALT Alkaline Phosphatase Lactate Dehydrogenase C-Reactive Protein Total Protein Albumin Arterial Blood Glucose Coronavirus (PCR) 05/15/21 05/15/21 05/15/21 05:05 11:12 16:39 WBC MCHC RDW Lymph % (Auto) Lymph # (Auto) Baso # (Auto) Seg Neutrophils % Seg Neuts % (Manual) Lymphocytes % (Manual) Seg Neutrophils # Seg Neutrophils # Man Lymphocytes # (Manual) D-Dimer ABG pH POC ABG pO2 ABG pO2 ABG HCO3 ABG O2 Saturation ABG Base Excess ABG Oxyhemoglobin ABG Sodium ABG Chloride ABG Glucose Oxyhemoglobin Carboxyhemoglobin Sodium Potassium Chloride Carbon Dioxide BUN Creatinine Glucose POC Glucose 125 H 201 H 241 H Hemoglobin A1c Ferritin AST ALT Alkaline Phosphatase Lactate Dehydrogenase C-Reactive Protein Total Protein Albumin Arterial Blood Glucose Coronavirus (PCR) 05/15/21 05/16/21 05/16/21 21:31 05:04 10:40 WBC MCHC RDW Lymph % (Auto) Lymph # (Auto) Baso # (Auto) Seg Neutrophils % Seg Neuts % (Manual) Lymphocytes % (Manual) Seg Neutrophils # Seg Neutrophils # Man Lymphocytes # (Manual) D-Dimer ABG pH POC ABG pO2 ABG pO2 ABG HCO3 ABG O2 Saturation ABG Base Excess ABG Oxyhemoglobin ABG Sodium ABG Chloride ABG Glucose Oxyhemoglobin Carboxyhemoglobin Sodium Potassium Chloride Carbon Dioxide BUN Creatinine Glucose POC Glucose 234 H 123 H 231 H Hemoglobin A1c Ferritin AST ALT Alkaline Phosphatase Lactate Dehydrogenase C-Reactive Protein Total Protein Albumin Arterial Blood Glucose Coronavirus (PCR) 05/16/21 05/16/21 05/17/21 18:23 21:29 06:20 WBC MCHC RDW 18.8 H Lymph % (Auto) 10.2 L Lymph # (Auto) 0.8 L Baso # (Auto) Seg Neutrophils % 85.8 H Seg Neuts % (Manual) Lymphocytes % (Manual) Seg Neutrophils # Seg Neutrophils # Man Lymphocytes # (Manual) D-Dimer ABG pH POC ABG pO2 ABG pO2 ABG HCO3 ABG O2 Saturation ABG Base Excess ABG Oxyhemoglobin ABG Sodium ABG Chloride ABG Glucose Oxyhemoglobin Carboxyhemoglobin Sodium Potassium Chloride Carbon Dioxide BUN Creatinine Glucose POC Glucose 266 H 234 H Hemoglobin A1c Ferritin AST ALT Alkaline Phosphatase Lactate Dehydrogenase C-Reactive Protein Total Protein Albumin Arterial Blood Glucose Coronavirus (PCR) 05/17/21 05/17/21 05/17/21 06:20 11:06 16:36 WBC MCHC RDW Lymph % (Auto) Lymph # (Auto) Baso # (Auto) Seg Neutrophils % Seg Neuts % (Manual) Lymphocytes % (Manual) Seg Neutrophils # Seg Neutrophils # Man Lymphocytes # (Manual) D-Dimer ABG pH POC ABG pO2 ABG pO2 ABG HCO3 ABG O2 Saturation ABG Base Excess ABG Oxyhemoglobin ABG Sodium ABG Chloride ABG Glucose Oxyhemoglobin Carboxyhemoglobin Sodium Potassium Chloride Carbon Dioxide 33 H BUN Creatinine 0.2 L Glucose 101 H POC Glucose 209 H 180 H Hemoglobin A1c Ferritin AST ALT Alkaline Phosphatase Lactate Dehydrogenase C-Reactive Protein Total Protein Albumin Arterial Blood Glucose Coronavirus (PCR) 05/17/21 05/18/21 05/18/21 21:06 12:00 15:06 WBC MCHC RDW Lymph % (Auto) Lymph # (Auto) Baso # (Auto) Seg Neutrophils % Seg Neuts % (Manual) Lymphocytes % (Manual) Seg Neutrophils # Seg Neutrophils # Man Lymphocytes # (Manual) D-Dimer 874.02 H ABG pH POC ABG pO2 ABG pO2 ABG HCO3 ABG O2 Saturation ABG Base Excess ABG Oxyhemoglobin ABG Sodium ABG Chloride ABG Glucose Oxyhemoglobin Carboxyhemoglobin Sodium Potassium Chloride Carbon Dioxide BUN Creatinine Glucose POC Glucose 256 H 139 H Hemoglobin A1c Ferritin AST ALT Alkaline Phosphatase Lactate Dehydrogenase C-Reactive Protein Total Protein Albumin Arterial Blood Glucose Coronavirus (PCR) 05/18/21 05/18/21 05/18/21 15:06 15:06 16:08 WBC MCHC RDW Lymph % (Auto) Lymph # (Auto) Baso # (Auto) Seg Neutrophils % Seg Neuts % (Manual) Lymphocytes % (Manual) Seg Neutrophils # Seg Neutrophils # Man Lymphocytes # (Manual) D-Dimer ABG pH POC ABG pO2 ABG pO2 ABG HCO3 ABG O2 Saturation ABG Base Excess ABG Oxyhemoglobin ABG Sodium ABG Chloride ABG Glucose Oxyhemoglobin Carboxyhemoglobin Sodium Potassium Chloride Carbon Dioxide BUN Creatinine Glucose POC Glucose 178 H Hemoglobin A1c Ferritin 289.6 H AST ALT Alkaline Phosphatase Lactate Dehydrogenase 605 H C-Reactive Protein Total Protein Albumin Arterial Blood Glucose Coronavirus (PCR) 05/18/21 05/19/21 21:22 11:57 WBC MCHC RDW Lymph % (Auto) Lymph # (Auto) Baso # (Auto) Seg Neutrophils % Seg Neuts % (Manual) Lymphocytes % (Manual) Seg Neutrophils # Seg Neutrophils # Man Lymphocytes # (Manual) D-Dimer ABG pH POC ABG pO2 ABG pO2 ABG HCO3 ABG O2 Saturation ABG Base Excess ABG Oxyhemoglobin ABG Sodium ABG Chloride ABG Glucose Oxyhemoglobin Carboxyhemoglobin Sodium Potassium Chloride Carbon Dioxide BUN Creatinine Glucose POC Glucose 241 H 201 H Hemoglobin A1c Ferritin AST ALT Alkaline Phosphatase Lactate Dehydrogenase C-Reactive Protein Total Protein Albumin Arterial Blood Glucose Coronavirus (PCR)
--- NOTE | 2021-05-19 12:42 | Progress Note ---
Assessment and Plan 50-year-old female past medical history obesity, GERD, hyperlipidemia brought to the hospital due to shortness of breath, fevers, malaise, typical Covid symptoms for approximate 1 week prior to admission and was progressively worse since on set. She is found to have saturations of 86% on presentation. Afebrile since admission with a white count 7.5. Covid test was positive positive along with normal renal function and normal procalcitonin. Chest x-ray: Bilateral pneumonia. Patient initiated on Covid protocol, ID and pulmonary care following Assessment and plan: --Acute hypoxic resp failure due to covid19 -S/p BiPAP, now discontinued -Currently on high per nasal cannula at flow rate 40 L/min along with nonrebreather -See RT notes for titration -Albuterol as needed -Pulmonary hygiene -Pulmonology following CTA chest ordered, patient could not tolerate --covid19 pna; sepsis; -zinc/vitC/D -methylpred 125 mg every 8; wean as appropriate -Infectious disease consulted, -S/p Actemra and remdesivir -Trend temperature and WBC curve -Follow culture data --Oral candidiasis Nystatin solution ordered. -- hyponatremia -Last 24 hours -125 -Trend BMP -Replace electrolytes as needed -Monitor intake and output -- coagulopathy of covid; on AC -Subcu heparin -Trend CBC -Transfuse for hemoglobin less than 7 -Bilateral lower extremity Doppler ultrasounds negative for DVT ; no CTA or VQ scan to rule out PE -- hyperglycemia; obesity -glargine HS -SSI AC/HS -Avoid hypoglycemia -- risk for protein gisella malnutrition given inc metabolic demand with resp insufficiency -TPN earlier in hospital admission due to BiPAP however now patient is tolerating p.o. -Patient on a GI soft diet with aspiration precautions -Nutrition following -Bowel regimen: Colace, senna, MiraLAX -PPI --Anxiety Likely due to severe hypoxia -Follows commands and RAY -PRN pain and anxiety meds -Patient is [place]ian-speaking but understands Croatian --viral conjunctivitis right eye: -Right eye- s/p 5 d course of cipro drops. suspect viral conjunctivitis. lubricating eye drops. supportive management. --Septic shock -S/p pressors now discontinued -MAP goal 65 -Pressure monitor per protocol --DVT prophylaxis, per hospital protocol Hospital course to date: 04/17: Patient seen and examined, still uncomfortable with Hypoxic respiratory failure and on oxygen, will continue to steroids therapy, start patient on Remdesivir, ID consulted, Pulmonary consult placed. 04/18: Patient seen and examined, she is currently being changed to High flow NC due to worsening HYPOXIA, will transfer to IMCU, Pulmonary and ID following. Will also give a dose of Lasix today. Monitor Inflammatory markers. 04/19: Patient seen and examined still on high flow due to hypoxia. Appears a bit more comfortable today than yesterday. Cough has decreased in frequency. We will continue high dose Dexameathasone to complete 10 days. continue on Remdesivir 200 mg IV q day x 1 followed by 100 mg IV q day x 4 days -Obtain q48-72h inflammatory markers - ferritin, Ddimer, CRP, LDH Will also give lasix daily for the next 3 days and monitor renal function. Family updated. Continue prone positioning as tolerated 04/20: Patient has some desaturation episodes yesterday was placed on BiPAP. Discussed with ICU team for bed availability for patient to be transferred up. Continue prone position as tolerated. 04/21: Patient remains with profound hypoxia secondary to COVID pneumonia. -Continue steroids -Continue remedesir -S/P Actmera 04/22: Patient remains on steroids and remdesivir. ABG shows persistent hypoxia. We will continue current management additional trial of Lasix for the next few days to see if any improvement. Monitor inflammatory markers as needed. Prognosis is guarded remains on high flow 04/23; patient was treated with remdesivir and Actemra. Continue steroid. Patient's prognosis is guarded. 04/24; patient is on steroid. Patient is currently on BiPAP. Prognosis is guarded. Pulmonary is following. Patient was given Lasix and Ativan. 04/25; continue steroid. Patient was on 40 L of high flow oxygen with saturation was 88%. Pulmonary is following. Prognosis is guarded. Patient was given lasix and ativan. 04/26; patient is on BiPAP and Precedex. Prognosis is guarded. 04/27; patient is on BiPAP and Precedex. Patient will finish steroid today and will start on Solu-Medrol tomorrow. Prognosis is guarded. Blood pressure is better today. Hold Lasix. 04/28 patient is on 100 Fio2 via BIPAP. moderately dyspneic, pulmonary note reviewed, lab results reviewed 04/29 no acute events- see systems review above 04/30 no acute events overnight - on airvo today- TPN started -see systems review above 05-01 no acute events overnight- tolerating airvo- see systems review above 05-02 no acute events overnight; tolerating airvo this AM- see systems review above 05/03: Patient has shown remarkable improvement, weaned down to 3 L and satting 95%. Will attempt to walk test today in anticipation for discharge tomorrow. Discussed with PT team to walk the patient today also. 05/04: Patient appears to have had a decline he was down to 3 L satting 95% with anticipation for discharge today but desatted down to 85% on room air and only 88% on 5 L he is now back at 8 L. I encourage incentive spirometer. While he is on Xarelto and has completed the severe steroids which was subsequently changed to Solu-Medrol I will go ahead and order a CTA to make sure that there is not a failure of Xarelto. We will continue to wean as tolerated discussed with nursing staff at bedside. 05/05/21 Patient is on 40 L of oxygen with 80% FiO2. Patient is encouraged to turn to the side more frequently. Patient is denied any shortness of breath and coughing. No other complaints. Follow the CT scan of the chest. Status post remdesivir and Actemra.Solu-Medrol 40 mg IV every 8 hours. Continue current management. Pulmonary follow-up. 05/06: Patient remains on high flow nasal cannula but states that she feels slightly better with the help of translation from her cousin Aspen. Patient is still awaiting a bed on the floor. Patient diet is being tolerated now so we will stop TPN will be stopped tonight. 05/07/2021: Patient remains on 40 L/min oxygen at 90% FiO2. Attempt made for CTA chest to rule out pulmonary embolism however patient desatted while at CT. Study was aborted, will reattempt again tomorrow. will follow along with renetta bertrand. Discussed/updated patient and patient's daughter over phone regarding any active clinical issues. Patient only complaint is oral pain from oral candidiasis noted on exam. Nystatin oral solution ordered. Daughter also voiced concern over patient eye drops which she stated that patient needed to restart from home. However she did not remember name of drops. advised daughter to call our hospital with drop name and dosing and we will restart. 05/08/2021: Started anticoagulation with Lovenox yesterday. Awaiting CTA chest completion. Will attempt to de-escalate oxygen as patient tolerates 05/09/2021: Continues to have high O2 requirements. CTA chest aborted due to patient not being able to tolerate transport to and from scanner. Will follow pulmonology recommendations 05/10/2021: Steroids increased yesterday to 125 mg every 8 hour. Continuing full dose anticoagulation. Respiratory status still remains challenging as it is difficult to wean patient off of hifnc. Minimal improvement compared to last few days. Plan to prone patient today. Otherwise: Some improvement in eye symptoms compared to yesterday. Will order more lubricating eye drops 05/11/2021: Still requires high flow nasal cannula, FiO2 de-escalated to 85%.. Encourage continued proning, patient care team aware. Continue with steroids, anticoagulation, antibiotics. 05/12/2021: High flow nasal cannula remains at flow rate 35 L/min and FiO2 of 85%. Patient appears more comfortable today. Started insulin regimen due to hyperglycemia likely multifactorial in the setting of underlying diabetes and high-dose steroids. Continue to encourage patient to prone. Discussed with pulmonology regarding patient underlying anxiety. We both agreed that low-dose BuSpar might be beneficial for the patient. 05/13/2020: hypoxic resp distress overnight. cpap ordered. Current settings on encounter 30/04 at 100% FIO2. Advised care (RN, RT, PT) team to continue to aggressively work with patient as far as proning. Patient can sit at side of bed and rest on bedside tray w/ pillow in "Rodin's thinker pose". continue high dose steroids, PRN ativan for anxiety, Buspar noted in pulm recs. 05/14/21: Patient remains on 100% O2 with high flow. Follow inflammatory markers, wean FiO2 as tolerated, guarded prognosis 05/15: Patient on 40 L high flow O2 today-requiring nonrebreather intermittently, continue to follow inflammatory markers and wean off O2 as shaan ated, guarded prognosis. 05/16:-Remains on high flow O2 along with nonrebreather, continue to follow inflammatory markers and wean off O2 as tolerated, pulmonary and ID following. Guarded prognosis, patient requiring higher concentration of O2 and unable to wean off. 05/17: Persistently recurring higher concentration O2. Patient on both high flow oxygen and nonrebreather. Poor prognosis, continue to follow inflammatory markers. ID and pulmonary care following. Updated family. 05/18: Patient remains on nonrebreather and high flow O2, Prone if possible. Wean FiO2 for sats >88%. Prognosis is very very guarded. Follow inflammatory markers. 05/19: Wean FiO2 for sats >88%. Patient remains on nonrebreather and high flow O2, Prone if possible. Follow inflammatory markers. Prognosis is very very guarded. Subjective Date of service: 05/19/21 Principal diagnosis: Covid-19 Interval history: Patient seen and examined. Medical records and medication list reviewed. No acute event overnight noted by the RN. Patient remains on high flow O2 along with nonrebreather. Patient is tolerating diet. Discussed plan of care at bedside with patient. Objective - Exam Narrative Exam: Limited physical exam due to COVID-19 pandemic to minimize transmission of the disease and to preserve PPE. Vital reviewed and stable. GENERAL: well-developed well-nourished lying on bed appeared to be in no discomfort. HEENT: Normocephalic. Atraumatic. Right eye congestion NECK: Supple. CHEST/LUNGS: breathing on high flow O2 with nonrebreather HEART/CARDIOVASCULAR: Heart rate stable on telemetry ABDOMEN: Visibly not distended SKIN: There is no rash NEURO: No focal motor deficit. Follows command. MUSCULOSKELETAL: No joint effusion EXTRIMITY: No swelling, no cyanosis or clubbing. PSYCH: Cooperative. - Constitutional Vitals: Vital Signs - 12hr 05/19/21 05/19/21 05/19/21 00:47 01:47 02:17 Temperature Pulse Rate Respiratory 20 20 Rate Blood Pressure O2 Sat by Pulse 95 Oximetry 05/19/21 05/19/21 05/19/21 05:40 08:00 08:10 Temperature 97.9 F Pulse Rate 67 Respiratory 22 Rate Blood Pressure 99/57 O2 Sat by Pulse 97 96 96 Oximetry - Labs CBC & Chem 7: 05/20/21 08:01 05/20/21 08:01 Labs: Abnormal lab results 05/18/21 05/18/21 05/18/21 Range/Units 15:06 15:06 15:06 D-Dimer 874.02 H (0-234) ng/mlDDU POC Glucose (70-105) mg/dL Ferritin 289.6 H (10.0-200.0) ng/mL Lactate Dehydrogenase 605 H (91-180) units/L 05/18/21 05/18/21 05/19/21 Range/Units 16:08 21:22 11:57 D-Dimer (0-234) ng/mlDDU POC Glucose 178 H 241 H 201 H (70-105) mg/dL Ferritin (10.0-200.0) ng/mL Lactate Dehydrogenase (91-180) units/L
[2021-05-19] MEDS: SENNOSIDES 8.6 MG TAB PO SCH (22:18)
[2021-05-19] MEDS: ENOXAPARIN 40 MG/0.4 ML INJ SUB-Q SCH (22:18)
[2021-05-20] MEDS: LORazepam 2 MG/ML VIAL IV SCH ×3 (04:52→13:24)
[2021-05-20] MEDS: MINERAL OIL/PETROLATUM, WHITE OPHTH OINT 3.5 GM OU SCH ×3 (06:12→22:04)
[2021-05-20] MEDS: methylPREDNISolone Sod Succinate 125 MG/2 ML INJ IV SCH ×3 (06:12→21:23)
[2021-05-20] MEDS: INSULIN LISPRO 100 UNIT/ML SUB-Q SCH ×4 (08:06→21:27)
--- NOTE | 2021-05-20 09:06 | Progress Note ---
Assessment and Plan 50-year-old female past medical history obesity, GERD, hyperlipidemia brought to the hospital due to shortness of breath, fevers, malaise, typical Covid symptoms for approximate 1 week prior to admission and was progressively worse since on set. She is found to have saturations of 86% on presentation. Afebrile since admission with a white count 7.5. Covid test was positive positive along with normal renal function and normal procalcitonin. Chest x-ray: Bilateral pneumonia. Patient initiated on Covid protocol, ID and pulmonary care following Assessment and plan: --Acute hypoxic resp failure due to covid19 -S/p BiPAP, now discontinued -Currently on high per nasal cannula at flow rate 40 L/min along with nonrebreather -See RT notes for titration -Albuterol as needed -Pulmonary hygiene -Pulmonology following CTA chest ordered, patient could not tolerate --covid19 pna; sepsis; -zinc/vitC/D -methylpred 125 mg every 8; wean as appropriate -Infectious disease consulted, -S/p Actemra and remdesivir -Trend temperature and WBC curve -Follow culture data --Oral candidiasis Nystatin solution ordered. -- hyponatremia -Last 24 hours -125 -Trend BMP -Replace electrolytes as needed -Monitor intake and output -- coagulopathy of covid; on AC -Subcu heparin -Trend CBC -Transfuse for hemoglobin less than 7 -Bilateral lower extremity Doppler ultrasounds negative for DVT ; no CTA or VQ scan to rule out PE -- hyperglycemia; obesity -glargine HS -SSI AC/HS -Avoid hypoglycemia -- risk for protein gisella malnutrition given inc metabolic demand with resp insufficiency -TPN earlier in hospital admission due to BiPAP however now patient is tolerating p.o. -Patient on a GI soft diet with aspiration precautions -Nutrition following -Bowel regimen: Colace, senna, MiraLAX -PPI --Anxiety Likely due to severe hypoxia -Follows commands and RAY -PRN pain and anxiety meds -Patient is Indonesian-speaking but understands Portuguese --viral conjunctivitis right eye: -Right eye- s/p 5 d course of cipro drops. suspect viral conjunctivitis. lubricating eye drops. supportive management. --Septic shock -S/p pressors now discontinued -MAP goal 65 -Pressure monitor per protocol --DVT prophylaxis, per hospital protocol Hospital course to date: 04/17: Patient seen and examined, still uncomfortable with Hypoxic respiratory failure and on oxygen, will continue to steroids therapy, start patient on Remdesivir, ID consulted, Pulmonary consult placed. 04/18: Patient seen and examined, she is currently being changed to High flow NC due to worsening HYPOXIA, will transfer to IMCU, Pulmonary and ID following. Will also give a dose of Lasix today. Monitor Inflammatory markers. 04/19: Patient seen and examined still on high flow due to hypoxia. Appears a bit more comfortable today than yesterday. Cough has decreased in frequency. We will continue high dose Dexameathasone to complete 10 days. continue on Remdesivir 200 mg IV q day x 1 followed by 100 mg IV q day x 4 days -Obtain q48-72h inflammatory markers - ferritin, Ddimer, CRP, LDH Will also give lasix daily for the next 3 days and monitor renal function. Family updated. Continue prone positioning as tolerated 04/20: Patient has some desaturation episodes yesterday was placed on BiPAP. Discussed with ICU team for bed availability for patient to be transferred up. Continue prone position as tolerated. 04/21: Patient remains with profound hypoxia secondary to COVID pneumonia. -Continue steroids -Continue remedesir -S/P Actmera 04/22: Patient remains on steroids and remdesivir. ABG shows persistent hypoxia. We will continue current management additional trial of Lasix for the next few days to see if any improvement. Monitor inflammatory markers as needed. Prognosis is guarded remains on high flow 04/23; patient was treated with remdesivir and Actemra. Continue steroid. Patient's prognosis is guarded. 04/24; patient is on steroid. Patient is currently on BiPAP. Prognosis is guarded. Pulmonary is following. Patient was given Lasix and Ativan. 04/25; continue steroid. Patient was on 40 L of high flow oxygen with saturation was 88%. Pulmonary is following. Prognosis is guarded. Patient was given lasix and ativan. 04/26; patient is on BiPAP and Precedex. Prognosis is guarded. 04/27; patient is on BiPAP and Precedex. Patient will finish steroid today and will start on Solu-Medrol tomorrow. Prognosis is guarded. Blood pressure is better today. Hold Lasix. 04/28 patient is on 100 Fio2 via BIPAP. moderately dyspneic, pulmonary note reviewed, lab results reviewed 04/29 no acute events- see systems review above 04/30 no acute events overnight - on airvo today- TPN started -see systems review above 05-01 no acute events overnight- tolerating airvo- see systems review above 05-02 no acute events overnight; tolerating airvo this AM- see systems review above 05/03: Patient has shown remarkable improvement, weaned down to 3 L and satting 95%. Will attempt to walk test today in anticipation for discharge tomorrow. Discussed with PT team to walk the patient today also. 05/04: Patient appears to have had a decline he was down to 3 L satting 95% with anticipation for discharge today but desatted down to 85% on room air and only 88% on 5 L he is now back at 8 L. I encourage incentive spirometer. While he is on Xarelto and has completed the severe steroids which was subsequently changed to Solu-Medrol I will go ahead and order a CTA to make sure that there is not a failure of Xarelto. We will continue to wean as tolerated discussed with nursing staff at bedside. 05/05/21 Patient is on 40 L of oxygen with 80% FiO2. Patient is encouraged to turn to the side more frequently. Patient is denied any shortness of breath and coughing. No other complaints. Follow the CT scan of the chest. Status post remdesivir and Actemra.Solu-Medrol 40 mg IV every 8 hours. Continue current management. Pulmonary follow-up. 05/06: Patient remains on high flow nasal cannula but states that she feels slightly better with the help of translation from her cousin Aspen. Patient is still awaiting a bed on the floor. Patient diet is being tolerated now so we will stop TPN will be stopped tonight. 05/07/2021: Patient remains on 40 L/min oxygen at 90% FiO2. Attempt made for CTA chest to rule out pulmonary embolism however patient desatted while at CT. Study was aborted, will reattempt again tomorrow. will follow along with renetta bertrand. Discussed/updated patient and patient's daughter over phone regarding any active clinical issues. Patient only complaint is oral pain from oral candidiasis noted on exam. Nystatin oral solution ordered. Daughter also voiced concern over patient eye drops which she stated that patient needed to restart from home. However she did not remember name of drops. advised daughter to call our hospital with drop name and dosing and we will restart. 05/08/2021: Started anticoagulation with Lovenox yesterday. Awaiting CTA chest completion. Will attempt to de-escalate oxygen as patient tolerates 05/09/2021: Continues to have high O2 requirements. CTA chest aborted due to patient not being able to tolerate transport to and from scanner. Will follow pulmonology recommendations 05/10/2021: Steroids increased yesterday to 125 mg every 8 hour. Continuing full dose anticoagulation. Respiratory status still remains challenging as it is difficult to wean patient off of hifnc. Minimal improvement compared to last few days. Plan to prone patient today. Otherwise: Some improvement in eye symptoms compared to yesterday. Will order more lubricating eye drops 05/11/2021: Still requires high flow nasal cannula, FiO2 de-escalated to 85%.. Encourage continued proning, patient care team aware. Continue with steroids, anticoagulation, antibiotics. 05/12/2021: High flow nasal cannula remains at flow rate 35 L/min and FiO2 of 85%. Patient appears more comfortable today. Started insulin regimen due to hyperglycemia likely multifactorial in the setting of underlying diabetes and high-dose steroids. Continue to encourage patient to prone. Discussed with pulmonology regarding patient underlying anxiety. We both agreed that low-dose BuSpar might be beneficial for the patient. 05/13/2020: hypoxic resp distress overnight. cpap ordered. Current settings on encounter 30/04 at 100% FIO2. Advised care (RN, RT, PT) team to continue to aggressively work with patient as far as proning. Patient can sit at side of bed and rest on bedside tray w/ pillow in "Rodin's thinker pose". continue high dose steroids, PRN ativan for anxiety, Buspar noted in pulm recs. 05/14/21: Patient remains on 100% O2 with high flow. Follow inflammatory markers, wean FiO2 as tolerated, guarded prognosis 05/15: Patient on 40 L high flow O2 today-requiring nonrebreather intermittently, continue to follow inflammatory markers and wean off O2 as shaan ated, guarded prognosis. 05/16:-Remains on high flow O2 along with nonrebreather, continue to follow inflammatory markers and wean off O2 as tolerated, pulmonary and ID following. Guarded prognosis, patient requiring higher concentration of O2 and unable to wean off. 05/17: Persistently recurring higher concentration O2. Patient on both high flow oxygen and nonrebreather. Poor prognosis, continue to follow inflammatory markers. ID and pulmonary care following. Updated family. 05/18: Patient remains on nonrebreather and high flow O2, Prone if possible. Wean FiO2 for sats >88%. Prognosis is very very guarded. Follow inflammatory markers. 05/19: Wean FiO2 for sats >88%. Patient remains on nonrebreather and high flow O2, Prone if possible. Follow inflammatory markers. Prognosis is very very guarded. 05/20: Patient remains on high flow O2 along with nonrebreather. Guarded prognosis. Wean off O2 as tolerated. Pulmonary and ID following Subjective Date of service: 05/20/21 Principal diagnosis: Covid-19 Interval history: Patient seen and examined. Medical records and medication list reviewed. No acute event overnight noted by the RN. Patient remains on high flow O2 along with nonrebreather. Patient is tolerating diet. Discussed plan of care at bedside with patient. Objective - Exam Narrative Exam: Limited physical exam due to COVID-19 pandemic to minimize transmission of the disease and to preserve PPE. Vital reviewed and stable. GENERAL: well-developed well-nourished lying on bed appeared to be in no discomfort. HEENT: Normocephalic. Atraumatic. Right eye congestion NECK: Supple. CHEST/LUNGS: breathing on high flow O2 with nonrebreather HEART/CARDIOVASCULAR: Heart rate stable on telemetry ABDOMEN: Visibly not distended SKIN: There is no rash NEURO: No focal motor deficit. Follows command. MUSCULOSKELETAL: No joint effusion EXTRIMITY: No swelling, no cyanosis or clubbing. PSYCH: Cooperative. - Constitutional Vitals: Vital Signs - 12hr 05/19/21 05/19/21 05/19/21 21:30 21:35 22:00 Temperature Pulse Rate Respiratory 17 Rate Blood Pressure Blood Pressure [Left] O2 Sat by Pulse 98 96 Oximetry 05/19/21 05/19/21 05/20/21 23:30 23:32 02:05 Temperature 97.3 F L 97.3 F L Pulse Rate 67 68 Respiratory 20 21 Rate Blood Pressure 102/62 Blood Pressure 102/62 [Left] O2 Sat by Pulse 97 97 95 Oximetry 05/20/21 04:46 Temperature 97.5 F L Pulse Rate 67 Respiratory 22 Rate Blood Pressure 109/64 Blood Pressure [Left] O2 Sat by Pulse 100 Oximetry - Labs CBC & Chem 7: 05/20/21 08:01 05/20/21 08:01 Labs: Abnormal lab results 05/19/21 05/19/21 05/19/21 Range/Units 11:57 15:26 20:59 POC Glucose 201 H 209 H 226 H (70-105) mg/dL 05/20/21 Range/Units 07:38 POC Glucose 130 H (70-105) mg/dL
[2021-05-20 09:31] LABS: Blood Urea Nitrogen 18 mg/dL (7-17); Calcium 9.1 mg/dL (8.4-10.2); Hemolysis Index 29
[2021-05-20 09:44] LABS: BUN/Creatinine Ratio 90
[2021-05-20 09:49] LABS: Basophils % (Auto) 0.1 % (0.0-1.8); Hemoglobin 13.5 gm/dl (10.1-14.3); Lymphocytes # (Auto) 0.8 K/mm3 (1.2-5.4); Lymphocytes % (Auto) 8.3 % (13.4-35.0); Mean Corpuscular HGB Conc 34 % (30-34); Mean Corpuscular Volume 92 fl (79-97); Monocytes # (Auto) 0.3 K/mm3 (0.0-0.8); Platelet Count 265 K/mm3 (140-440); Red Blood Count 4.34 M/mm3 (3.65-5.03); Red Cell Distribution Width 19.7 % (13.2-15.2)
[2021-05-20] MEDS: POLYETHYLENE GLYCOL 3350 17 GM POWDER PO SCH (10:17)
[2021-05-20] MEDS: ZINC SULFATE 220 MG CAP PO SCH ×2 (10:17→21:23)
[2021-05-20] MEDS: FAMOTIDINE 20 MG TAB PO SCH ×2 (10:17→21:24)
[2021-05-20] MEDS: CHOLECALCIFEROL (VIT D3) 1000 UNIT (25 mcg) TAB PO SCH (10:17)
[2021-05-20] MEDS: DOCUSATE SODIUM 100 MG CAP PO SCH ×2 (10:17→22:05)
[2021-05-20] MEDS: ASCORBIC ACID 500 MG TAB PO SCH (10:17)
[2021-05-20] MEDS: INSULIN GLARGINE 100 UNITS/ML SUB-Q SCH ×2 (10:20→21:29)
--- NOTE | 2021-05-20 10:56 | Progress Note ---
Assessment and Plan 50 y/o female with acute respiratory failure secondary to COVID19 pneumonia. 05/18/21: COntinue current level of care. 05/17/21: Prone if possible. Wean FiO2 for sats >88%. COntinue scheduled ativan. Prognosis is very very guarded. Unfunded so not a candidate for LTACH 05/16/21: Prone if willing. Wean FIO2 if patient will allow. Anxiety control. Prognosis still remains very guarded. 05/15/21: Not sure if MAR is accurate but may have only gotten one dose of scheduled anixolytic therapy. Continue proning as tolerated, and wean FiO2 and flow for sats >88%. Prognosi remains very very guarded to poor. 05/14/21: Will discontinue the buspar and make the ativan scheduled but will do q6 as oppose to q4 and attempt to leave parameters for nursing when not to give. If anxiety could be controlled, feel that patient could be weaned further. She has no funding so she is not a candidate for LTACH. Prone if possible. Guarded prognosis. This is her day. 05/13/21: Ordered buspar 10 BID to start with to help with anxiety. Please continue to wean FiO2 as tolerated. Will remind nurse that there is PRN ativan available. Continue higher doses of steroids. Prone if able. 05/12/21: Patient may need something longer acting for anxiety. Per chart has not gotten any ativan in days. Would be ok with either buspar or low dose klonopin bid. COntinue higher doses of steroids as patient seems to be responding. Prone if possible. 05/11/21: Continue high doses of steroids and continue to wean for sats >88%. Please encourage proning. 05/10/21: Will continue this dose of steroid at least through the weekend and assess for improvement. will speak with RT about aggressive weaning. Full dose anticoagulation continues. Very very guarded to poor prognosis. 05/09/21: Going to consider increasing steroids to 125q8, maybe as early as tomorrow. continue full dose anticoagulation. 05/08/21: Continue anticoagulation and steroids. Prone if possible. Anxiety control. No objection to CTA if this can happen. Very very guarded prognosis. 05/07/21: Spoke with IMS, not opposed to full dose anticoagulation. If patient goes back on NRB HFNC combo may need to consider restarting PPN again. Encourage proning. Guarded prognosis. 05/06/21: Continue to wean FiO2 and flow for sats >88%. Tolerating diet now so will stop PPN. Continue anxiety control. Continue IV steroids. Would not object to transfer to COVID floor if bed available. Not sure why she was titrated back up to 100% from 85 as all sats documented in the RT's notes were acceptable. Same for under vital signs as well. 05/03/21: Set back last night from yesterday. Continue bipap therapy for now and attempt HFNC maybe later this afternoon. Continue to use PRN ativan but may need to schedule as she likely took off mask from anxiety. Continue IV steroids. Hold on transfer to COVID Floor. 05/02/21: Continue to wean FiO2 as tolerated for sats >88%. Will continue bipap at night. Patient has no funding so not a candidate for LTACH. Given that she has been stable and not requiring the combo of HFNC and NRB, will consider moving to COVID floor. 05/01/21: Continue to wean FiO2 for sats >88%. A sat of 90 is more than acceptable and oxygen should not be increased for this unless patient desats and remains at a sat lower than 88. Bipap at night to give some form of relief and HFNC during the day. Currently on just this alone which is improvement. Ok with daily diuresis but must monitor renal function and BP closely. She was over diuresed last week and we ended up giving fluid back. Prognosis remains guarded. 04/30/21: Will start CLinimix today for nutritional support, without electrolytes. Check labs in am. Prone if able. Continue precedx for anxiety. Very very guarded prognosis. Attempting our best to not intubate. 04/29/21: Continue precedex. Continue IV solumedrol. Prone if able. Guarded prognosis. 04/28/21: Continue Precedex. Picc team attempting to place line now. Stable on Bipap. Ordered steroids IV solumedrol to start today. Prognosis remains guarded, still at very high risk for intubation. 04/27/21: Hypotension improving/improved. Hold on any further lasix dosing. Continue precedex to help with anxeity. later today please attempt HFNC with NRB if needed. Attempt to feed if possible. Steroids end today, please order solumedrol 40q8 to start tomorrow (04/28/21). guarded prognosis. 04/26/21: Hypotension today, most likely from precedex use and diuresis that I did the last several days. Will bolus again today. Consider midodrine if BP does not respond. 04/25/21: Lasix again today. Keep PRN ativan for now. Hold on precedex for now. Guarded prognosis. Labs ordered for tomorrow. 04/24/21: Lasix today. Will also start patient on low dose PRN ativan. If this does not help will then try precedex. Guarded prognosis. 04/23/21: Prone as tolerated. No lasix today. Continue decadron. Guarded prognosis. High risk for intubation and high mortality with intubation. 04/19/21: Prone as tolerated during the day and sleep prone at night. Continue IV remdesivir and steroids. Did get actemra. Guarded prognosis. 1. Daily net negative state 2. Prone if possible 3. IV remdesivir. 4. Should be a candidate for Actemra 5. IV steroids 6. Guarded Prognosis Subjective Date of service: 05/20/21 Principal diagnosis: Covid-19 Interval history: No real change clinically. Objective Vital Signs - 12hr 05/19/21 05/19/21 05/20/21 23:30 23:32 02:05 Temperature 97.3 F L 97.3 F L Pulse Rate 67 68 Respiratory 20 21 Rate Blood Pressure 102/62 Blood Pressure 102/62 [Left] O2 Sat by Pulse 97 97 95 Oximetry 05/20/21 04:46 Temperature 97.5 F L Pulse Rate 67 Respiratory 22 Rate Blood Pressure 109/64 Blood Pressure [Left] O2 Sat by Pulse 100 Oximetry Constitutional: no acute distress, alert Eyes: non-icteric ENT: oropharynx moist Neck: supple Effort: normal Ascultation: Bilateral: diminished breath sounds Cardiovascular: regular rate and rhythm Gastrointestinal: normoactive bowel sounds, soft, non-tender, non-distended Integumentary: normal Extremities: no cyanosis, no edema, pink and warm Neurologic: normal mental status, non-focal exam, pupils equal and round, CN II- XII normal Psychiatric: mood appropriate, affect normal CBC and BMP: 05/20/21 08:01 05/20/21 08:01 ABG, PT/INR, D-dimer: ABG ABG pH 7.403 pH Units (7.350-7.450) 05/14/21 02:23 POC ABG pCO2 45.4 mmHg (32.0-48.0) 05/03/21 04:49 ABG pCO2 50.2 mm Hg 05/14/21 02:23 POC ABG pO2 65.3 mmHg (83-108) L 05/03/21 04:49 ABG pO2 130.3 mm Hg (80.0-90.0) H 05/14/21 02:23 POC ABG HCO3 18.5 05/03/21 04:49 ABG O2 Saturation 98.5 % (95.0-99.0) 05/14/21 02:23 PT/INR, D-dimer D-Dimer 874.02 ng/mlDDU (0-234) H 05/18/21 15:06 Abnormal lab findings: Abnormal Labs 04/16/21 04/16/21 04/16/21 11:42 11:42 11:42 WBC MCHC RDW 16.1 H Lymph % (Auto) 7.8 L Lymph # (Auto) 0.8 L Baso # (Auto) Seg Neutrophils % 87.7 H Seg Neuts % (Manual) Lymphocytes % (Manual) Seg Neutrophils # 8.5 H Seg Neutrophils # Man Lymphocytes # (Manual) D-Dimer 338.70 H ABG pH POC ABG pO2 ABG pO2 ABG HCO3 ABG O2 Saturation ABG Base Excess ABG Oxyhemoglobin ABG Sodium ABG Chloride ABG Glucose Oxyhemoglobin Carboxyhemoglobin Sodium Potassium Chloride Carbon Dioxide BUN Creatinine Glucose 194 H POC Glucose Hemoglobin A1c Ferritin AST ALT Alkaline Phosphatase Lactate Dehydrogenase C-Reactive Protein Total Protein 8.4 H Albumin 3.8 L Arterial Blood Glucose Coronavirus (PCR) 04/16/21 04/16/21 04/17/21 11:42 11:42 03:50 WBC MCHC RDW 16.0 H Lymph % (Auto) 7.7 L Lymph # (Auto) 0.6 L Baso # (Auto) Seg Neutrophils % 89.8 H Seg Neuts % (Manual) Lymphocytes % (Manual) Seg Neutrophils # Seg Neutrophils # Man Lymphocytes # (Manual) D-Dimer ABG pH POC ABG pO2 ABG pO2 ABG HCO3 ABG O2 Saturation ABG Base Excess ABG Oxyhemoglobin ABG Sodium ABG Chloride ABG Glucose Oxyhemoglobin Carboxyhemoglobin Sodium Potassium Chloride Carbon Dioxide BUN Creatinine Glucose 195 H POC Glucose Hemoglobin A1c Ferritin 254.3 H AST ALT Alkaline Phosphatase Lactate Dehydrogenase 359 H C-Reactive Protein 15.20 H Total Protein Albumin Arterial Blood Glucose Coronavirus (PCR) 04/17/21 04/17/21 04/17/21 03:50 08:26 08:26 WBC MCHC RDW Lymph % (Auto) Lymph # (Auto) Baso # (Auto) Seg Neutrophils % Seg Neuts % (Manual) Lymphocytes % (Manual) Seg Neutrophils # Seg Neutrophils # Man Lymphocytes # (Manual) D-Dimer 262.48 H ABG pH POC ABG pO2 ABG pO2 ABG HCO3 ABG O2 Saturation ABG Base Excess ABG Oxyhemoglobin ABG Sodium ABG Chloride ABG Glucose Oxyhemoglobin Carboxyhemoglobin Sodium Potassium Chloride Carbon Dioxide BUN 20 H Creatinine 0.5 L Glucose 249 H 225 H POC Glucose Hemoglobin A1c Ferritin AST ALT Alkaline Phosphatase Lactate Dehydrogenase 338 H C-Reactive Protein 17.20 H Total Protein Albumin 3.2 L Arterial Blood Glucose Coronavirus (PCR) 04/17/21 04/17/21 04/17/21 08:26 15:04 Unknown WBC MCHC RDW Lymph % (Auto) Lymph # (Auto) Baso # (Auto) Seg Neutrophils % Seg Neuts % (Manual) Lymphocytes % (Manual) Seg Neutrophils # Seg Neutrophils # Man Lymphocytes # (Manual) D-Dimer ABG pH POC ABG pO2 ABG pO2 ABG HCO3 ABG O2 Saturation ABG Base Excess ABG Oxyhemoglobin ABG Sodium ABG Chloride ABG Glucose Oxyhemoglobin Carboxyhemoglobin Sodium Potassium Chloride Carbon Dioxide BUN 20 H Creatinine 0.5 L Glucose 246 H POC Glucose Hemoglobin A1c Ferritin 392.0 H AST ALT Alkaline Phosphatase Lactate Dehydrogenase C-Reactive Protein Total Protein 8.3 H Albumin 3.1 L Arterial Blood Glucose Coronavirus (PCR) Positive A 04/18/21 04/18/21 04/18/21 05:06 05:06 07:36 WBC 11.6 H MCHC RDW 16.1 H Lymph % (Auto) Lymph # (Auto) Baso # (Auto) Seg Neutrophils % Seg Neuts % (Manual) Lymphocytes % (Manual) Seg Neutrophils # Seg Neutrophils # Man Lymphocytes # (Manual) D-Dimer ABG pH POC ABG pO2 ABG pO2 ABG HCO3 ABG O2 Saturation ABG Base Excess ABG Oxyhemoglobin ABG Sodium ABG Chloride ABG Glucose Oxyhemoglobin Carboxyhemoglobin Sodium Potassium 5.2 H Chloride Carbon Dioxide BUN 22 H Creatinine 0.5 L Glucose 315 H POC Glucose Hemoglobin A1c 8.5 H Ferritin AST ALT Alkaline Phosphatase Lactate Dehydrogenase C-Reactive Protein Total Protein Albumin 3.3 L Arterial Blood Glucose Coronavirus (PCR) 04/18/21 04/18/21 04/18/21 11:59 16:43 23:24 WBC MCHC RDW Lymph % (Auto) Lymph # (Auto) Baso # (Auto) Seg Neutrophils % Seg Neuts % (Manual) Lymphocytes % (Manual) Seg Neutrophils # Seg Neutrophils # Man Lymphocytes # (Manual) D-Dimer ABG pH POC ABG pO2 ABG pO2 ABG HCO3 ABG O2 Saturation ABG Base Excess ABG Oxyhemoglobin ABG Sodium ABG Chloride ABG Glucose Oxyhemoglobin Carboxyhemoglobin Sodium Potassium Chloride Carbon Dioxide BUN Creatinine Glucose POC Glucose 284 H 273 H 290 H Hemoglobin A1c Ferritin AST ALT Alkaline Phosphatase Lactate Dehydrogenase C-Reactive Protein Total Protein Albumin Arterial Blood Glucose Coronavirus (PCR) 04/19/21 04/19/21 04/19/21 04:19 04:19 08:10 WBC MCHC RDW 15.7 H Lymph % (Auto) Lymph # (Auto) Baso # (Auto) Seg Neutrophils % Seg Neuts % (Manual) Lymphocytes % (Manual) Seg Neutrophils # Seg Neutrophils # Man Lymphocytes # (Manual) D-Dimer ABG pH POC ABG pO2 ABG pO2 ABG HCO3 ABG O2 Saturation ABG Base Excess ABG Oxyhemoglobin ABG Sodium ABG Chloride ABG Glucose Oxyhemoglobin Carboxyhemoglobin Sodium Potassium Chloride Carbon Dioxide BUN 27 H Creatinine 0.4 L Glucose 184 H POC Glucose 194 H Hemoglobin A1c Ferritin AST ALT Alkaline Phosphatase Lactate Dehydrogenase C-Reactive Protein Total Protein Albumin 3.1 L Arterial Blood Glucose Coronavirus (PCR) 04/19/21 04/19/21 04/19/21 11:38 16:25 22:04 WBC MCHC RDW Lymph % (Auto) Lymph # (Auto) Baso # (Auto) Seg Neutrophils % Seg Neuts % (Manual) Lymphocytes % (Manual) Seg Neutrophils # Seg Neutrophils # Man Lymphocytes # (Manual) D-Dimer ABG pH POC ABG pO2 ABG pO2 ABG HCO3 ABG O2 Saturation ABG Base Excess ABG Oxyhemoglobin ABG Sodium ABG Chloride ABG Glucose Oxyhemoglobin Carboxyhemoglobin Sodium Potassium Chloride Carbon Dioxide BUN Creatinine Glucose POC Glucose 224 H 297 H 251 H Hemoglobin A1c Ferritin AST ALT Alkaline Phosphatase Lactate Dehydrogenase C-Reactive Protein Total Protein Albumin Arterial Blood Glucose Coronavirus (PCR) 04/20/21 04/20/21 04/20/21 05:28 08:43 16:21 WBC MCHC RDW Lymph % (Auto) Lymph # (Auto) Baso # (Auto) Seg Neutrophils % Seg Neuts % (Manual) Lymphocytes % (Manual) Seg Neutrophils # Seg Neutrophils # Man Lymphocytes # (Manual) D-Dimer ABG pH POC ABG pO2 ABG pO2 ABG HCO3 ABG O2 Saturation ABG Base Excess ABG Oxyhemoglobin ABG Sodium ABG Chloride ABG Glucose Oxyhemoglobin Carboxyhemoglobin Sodium Potassium Chloride Carbon Dioxide BUN 27 H Creatinine Glucose 192 H POC Glucose 173 H 253 H Hemoglobin A1c Ferritin AST ALT Alkaline Phosphatase Lactate Dehydrogenase C-Reactive Protein Total Protein Albumin 3.0 L Arterial Blood Glucose Coronavirus (PCR) 04/21/21 04/21/21 04/21/21 07:58 12:05 16:08 WBC MCHC RDW Lymph % (Auto) Lymph # (Auto) Baso # (Auto) Seg Neutrophils % Seg Neuts % (Manual) Lymphocytes % (Manual) Seg Neutrophils # Seg Neutrophils # Man Lymphocytes # (Manual) D-Dimer ABG pH POC ABG pO2 ABG pO2 ABG HCO3 ABG O2 Saturation ABG Base Excess ABG Oxyhemoglobin ABG Sodium ABG Chloride ABG Glucose Oxyhemoglobin Carboxyhemoglobin Sodium Potassium Chloride Carbon Dioxide BUN Creatinine Glucose POC Glucose 140 H 252 H 214 H Hemoglobin A1c Ferritin AST ALT Alkaline Phosphatase Lactate Dehydrogenase C-Reactive Protein Total Protein Albumin Arterial Blood Glucose Coronavirus (PCR) 04/21/21 04/22/21 04/22/21 21:42 08:37 12:01 WBC MCHC RDW Lymph % (Auto) Lymph # (Auto) Baso # (Auto) Seg Neutrophils % Seg Neuts % (Manual) Lymphocytes % (Manual) Seg Neutrophils # Seg Neutrophils # Man Lymphocytes # (Manual) D-Dimer ABG pH 7.457 H POC ABG pO2 49.4 L ABG pO2 ABG HCO3 ABG O2 Saturation ABG Base Excess ABG Oxyhemoglobin 85.6 L ABG Sodium ABG Chloride ABG Glucose 121 H Oxyhemoglobin Carboxyhemoglobin 0.3 L Sodium Potassium Chloride Carbon Dioxide BUN Creatinine Glucose POC Glucose 162 H 227 H Hemoglobin A1c Ferritin AST ALT Alkaline Phosphatase Lactate Dehydrogenase C-Reactive Protein Total Protein Albumin Arterial Blood Glucose 121 H Coronavirus (PCR) 04/22/21 04/22/21 04/23/21 16:26 22:23 04:52 WBC MCHC RDW 15.7 H Lymph % (Auto) Lymph # (Auto) Baso # (Auto) Seg Neutrophils % Seg Neuts % (Manual) Lymphocytes % (Manual) Seg Neutrophils # Seg Neutrophils # Man Lymphocytes # (Manual) D-Dimer ABG pH POC ABG pO2 ABG pO2 ABG HCO3 ABG O2 Saturation ABG Base Excess ABG Oxyhemoglobin ABG Sodium ABG Chloride ABG Glucose Oxyhemoglobin Carboxyhemoglobin Sodium Potassium Chloride Carbon Dioxide BUN Creatinine Glucose POC Glucose 200 H 136 H Hemoglobin A1c Ferritin AST ALT Alkaline Phosphatase Lactate Dehydrogenase C-Reactive Protein Total Protein Albumin Arterial Blood Glucose Coronavirus (PCR) 04/23/21 04/23/21 04/23/21 04:52 12:06 17:41 WBC MCHC RDW Lymph % (Auto) Lymph # (Auto) Baso # (Auto) Seg Neutrophils % Seg Neuts % (Manual) Lymphocytes % (Manual) Seg Neutrophils # Seg Neutrophils # Man Lymphocytes # (Manual) D-Dimer ABG pH POC ABG pO2 ABG pO2 ABG HCO3 ABG O2 Saturation ABG Base Excess ABG Oxyhemoglobin ABG Sodium ABG Chloride ABG Glucose Oxyhemoglobin Carboxyhemoglobin Sodium 136 L Potassium Chloride 97.7 L Carbon Dioxide BUN 23 H Creatinine Glucose 101 H POC Glucose 202 H 169 H Hemoglobin A1c Ferritin AST 46 H ALT Alkaline Phosphatase Lactate Dehydrogenase C-Reactive Protein Total Protein Albumin 3.3 L Arterial Blood Glucose Coronavirus (PCR) 04/23/21 04/24/21 04/24/21 23:08 05:17 08:38 WBC MCHC RDW Lymph % (Auto) Lymph # (Auto) Baso # (Auto) Seg Neutrophils % Seg Neuts % (Manual) Lymphocytes % (Manual) Seg Neutrophils # Seg Neutrophils # Man Lymphocytes # (Manual) D-Dimer ABG pH POC ABG pO2 ABG pO2 ABG HCO3 ABG O2 Saturation ABG Base Excess ABG Oxyhemoglobin ABG Sodium ABG Chloride ABG Glucose Oxyhemoglobin Carboxyhemoglobin Sodium Potassium Chloride Carbon Dioxide BUN Creatinine Glucose POC Glucose 111 H 108 H 126 H Hemoglobin A1c Ferritin AST ALT Alkaline Phosphatase Lactate Dehydrogenase C-Reactive Protein Total Protein Albumin Arterial Blood Glucose Coronavirus (PCR) 04/24/21 04/24/21 04/24/21 11:54 17:57 21:23 WBC MCHC RDW Lymph % (Auto) Lymph # (Auto) Baso # (Auto) Seg Neutrophils % Seg Neuts % (Manual) Lymphocytes % (Manual) Seg Neutrophils # Seg Neutrophils # Man Lymphocytes # (Manual) D-Dimer ABG pH POC ABG pO2 ABG pO2 ABG HCO3 ABG O2 Saturation ABG Base Excess ABG Oxyhemoglobin ABG Sodium ABG Chloride ABG Glucose Oxyhemoglobin Carboxyhemoglobin Sodium Potassium Chloride Carbon Dioxide BUN Creatinine Glucose POC Glucose 147 H 177 H 138 H Hemoglobin A1c Ferritin AST ALT Alkaline Phosphatase Lactate Dehydrogenase C-Reactive Protein Total Protein Albumin Arterial Blood Glucose Coronavirus (PCR) 04/25/21 04/25/21 04/25/21 07:06 11:23 15:43 WBC MCHC RDW Lymph % (Auto) Lymph # (Auto) Baso # (Auto) Seg Neutrophils % Seg Neuts % (Manual) Lymphocytes % (Manual) Seg Neutrophils # Seg Neutrophils # Man Lymphocytes # (Manual) D-Dimer ABG pH POC ABG pO2 ABG pO2 ABG HCO3 ABG O2 Saturation ABG Base Excess ABG Oxyhemoglobin ABG Sodium ABG Chloride ABG Glucose Oxyhemoglobin Carboxyhemoglobin Sodium Potassium Chloride Carbon Dioxide BUN Creatinine Glucose POC Glucose 147 H 169 H 227 H Hemoglobin A1c Ferritin AST ALT Alkaline Phosphatase Lactate Dehydrogenase C-Reactive Protein Total Protein Albumin Arterial Blood Glucose Coronavirus (PCR) 04/25/21 04/26/21 04/26/21 21:22 02:45 05:15 WBC MCHC RDW Lymph % (Auto) Lymph # (Auto) Baso # (Auto) Seg Neutrophils % Seg Neuts % (Manual) Lymphocytes % (Manual) Seg Neutrophils # Seg Neutrophils # Man Lymphocytes # (Manual) D-Dimer ABG pH POC ABG pO2 70.7 L ABG pO2 ABG HCO3 ABG O2 Saturation ABG Base Excess ABG Oxyhemoglobin 93.0 L ABG Sodium 132.7 L ABG Chloride ABG Glucose 115 H Oxyhemoglobin Carboxyhemoglobin Sodium Potassium Chloride 95.8 L Carbon Dioxide 32 H BUN 20 H Creatinine Glucose 102 H POC Glucose 196 H Hemoglobin A1c Ferritin AST ALT Alkaline Phosphatase Lactate Dehydrogenase C-Reactive Protein Total Protein Albumin Arterial Blood Glucose 115 H Coronavirus (PCR) 04/26/21 04/26/21 04/26/21 11:49 16:09 21:07 WBC MCHC RDW Lymph % (Auto) Lymph # (Auto) Baso # (Auto) Seg Neutrophils % Seg Neuts % (Manual) Lymphocytes % (Manual) Seg Neutrophils # Seg Neutrophils # Man Lymphocytes # (Manual) D-Dimer ABG pH POC ABG pO2 ABG pO2 ABG HCO3 ABG O2 Saturation ABG Base Excess ABG Oxyhemoglobin ABG Sodium ABG Chloride ABG Glucose Oxyhemoglobin Carboxyhemoglobin Sodium Potassium Chloride Carbon Dioxide BUN Creatinine Glucose POC Glucose 114 H 188 H 136 H Hemoglobin A1c Ferritin AST ALT Alkaline Phosphatase Lactate Dehydrogenase C-Reactive Protein Total Protein Albumin Arterial Blood Glucose Coronavirus (PCR) 04/27/21 04/27/21 04/28/21 17:34 22:12 08:26 WBC MCHC RDW Lymph % (Auto) Lymph # (Auto) Baso # (Auto) Seg Neutrophils % Seg Neuts % (Manual) Lymphocytes % (Manual) Seg Neutrophils # Seg Neutrophils # Man Lymphocytes # (Manual) D-Dimer ABG pH POC ABG pO2 ABG pO2 ABG HCO3 ABG O2 Saturation ABG Base Excess ABG Oxyhemoglobin ABG Sodium ABG Chloride ABG Glucose Oxyhemoglobin Carboxyhemoglobin Sodium Potassium Chloride Carbon Dioxide BUN Creatinine Glucose POC Glucose 128 H 159 H 69 L Hemoglobin A1c Ferritin AST ALT Alkaline Phosphatase Lactate Dehydrogenase C-Reactive Protein Total Protein Albumin Arterial Blood Glucose Coronavirus (PCR) 04/28/21 04/28/21 04/29/21 12:22 21:11 06:05 WBC MCHC RDW Lymph % (Auto) Lymph # (Auto) Baso # (Auto) Seg Neutrophils % Seg Neuts % (Manual) Lymphocytes % (Manual) Seg Neutrophils # Seg Neutrophils # Man Lymphocytes # (Manual) D-Dimer ABG pH POC ABG pO2 ABG pO2 ABG HCO3 ABG O2 Saturation ABG Base Excess ABG Oxyhemoglobin ABG Sodium ABG Chloride ABG Glucose Oxyhemoglobin Carboxyhemoglobin Sodium 132 L Potassium Chloride 94.4 L Carbon Dioxide BUN Creatinine 0.2 L D Glucose 140 H POC Glucose 141 H 171 H Hemoglobin A1c Ferritin AST ALT Alkaline Phosphatase Lactate Dehydrogenase C-Reactive Protein Total Protein Albumin Arterial Blood Glucose Coronavirus (PCR) 04/29/21 04/29/21 04/29/21 06:05 07:24 11:36 WBC MCHC 35 H RDW 15.9 H Lymph % (Auto) Lymph # (Auto) Baso # (Auto) Seg Neutrophils % Seg Neuts % (Manual) Lymphocytes % (Manual) Seg Neutrophils # Seg Neutrophils # Man Lymphocytes # (Manual) D-Dimer ABG pH POC ABG pO2 ABG pO2 ABG HCO3 ABG O2 Saturation ABG Base Excess ABG Oxyhemoglobin ABG Sodium ABG Chloride ABG Glucose Oxyhemoglobin Carboxyhemoglobin Sodium Potassium Chloride Carbon Dioxide BUN Creatinine Glucose POC Glucose 141 H 220 H Hemoglobin A1c Ferritin AST ALT Alkaline Phosphatase Lactate Dehydrogenase C-Reactive Protein Total Protein Albumin Arterial Blood Glucose Coronavirus (PCR) 04/29/21 04/29/21 04/29/21 14:23 15:30 17:06 WBC MCHC RDW Lymph % (Auto) Lymph # (Auto) Baso # (Auto) Seg Neutrophils % Seg Neuts % (Manual) Lymphocytes % (Manual) Seg Neutrophils # Seg Neutrophils # Man Lymphocytes # (Manual) D-Dimer ABG pH POC ABG pO2 ABG pO2 52.6 L ABG HCO3 ABG O2 Saturation 86.4 L ABG Base Excess ABG Oxyhemoglobin ABG Sodium ABG Chloride ABG Glucose Oxyhemoglobin 84.6 L Carboxyhemoglobin Sodium Potassium Chloride Carbon Dioxide BUN Creatinine Glucose POC Glucose 173 H 158 H Hemoglobin A1c Ferritin AST ALT Alkaline Phosphatase Lactate Dehydrogenase C-Reactive Protein Total Protein Albumin Arterial Blood Glucose Coronavirus (PCR) 04/29/21 04/30/21 04/30/21 21:27 07:16 08:00 WBC MCHC RDW 16.1 H Lymph % (Auto) Lymph # (Auto) Baso # (Auto) Seg Neutrophils % Seg Neuts % (Manual) Lymphocytes % (Manual) Seg Neutrophils # Seg Neutrophils # Man Lymphocytes # (Manual) D-Dimer ABG pH POC ABG pO2 ABG pO2 ABG HCO3 ABG O2 Saturation ABG Base Excess ABG Oxyhemoglobin ABG Sodium ABG Chloride ABG Glucose Oxyhemoglobin Carboxyhemoglobin Sodium Potassium Chloride Carbon Dioxide BUN Creatinine Glucose POC Glucose 244 H 175 H Hemoglobin A1c Ferritin AST ALT Alkaline Phosphatase Lactate Dehydrogenase C-Reactive Protein Total Protein Albumin Arterial Blood Glucose Coronavirus (PCR) 04/30/21 04/30/21 04/30/21 08:00 08:00 11:03 WBC MCHC RDW Lymph % (Auto) Lymph # (Auto) Baso # (Auto) Seg Neutrophils % Seg Neuts % (Manual) Lymphocytes % (Manual) Seg Neutrophils # Seg Neutrophils # Man Lymphocytes # (Manual) D-Dimer 1796.87 H ABG pH POC ABG pO2 ABG pO2 ABG HCO3 ABG O2 Saturation ABG Base Excess ABG Oxyhemoglobin ABG Sodium ABG Chloride ABG Glucose Oxyhemoglobin Carboxyhemoglobin Sodium 135 L Potassium Chloride 96.3 L Carbon Dioxide BUN Creatinine 0.2 L Glucose 153 H POC Glucose 183 H Hemoglobin A1c Ferritin AST 41 H ALT 76 H Alkaline Phosphatase 160 H Lactate Dehydrogenase 522 H C-Reactive Protein Total Protein 6.1 L Albumin 3.1 L Arterial Blood Glucose Coronavirus (PCR) 04/30/21 04/30/21 05/01/21 17:04 22:17 05:39 WBC MCHC RDW Lymph % (Auto) Lymph # (Auto) Baso # (Auto) Seg Neutrophils % Seg Neuts % (Manual) Lymphocytes % (Manual) Seg Neutrophils # Seg Neutrophils # Man Lymphocytes # (Manual) D-Dimer ABG pH POC ABG pO2 ABG pO2 ABG HCO3 ABG O2 Saturation ABG Base Excess ABG Oxyhemoglobin ABG Sodium ABG Chloride ABG Glucose Oxyhemoglobin Carboxyhemoglobin Sodium 133 L Potassium Chloride 92.1 L Carbon Dioxide BUN 24 H Creatinine 0.4 L D Glucose 269 H POC Glucose 167 H 208 H Hemoglobin A1c Ferritin AST ALT 66 H Alkaline Phosphatase 142 H Lactate Dehydrogenase C-Reactive Protein Total Protein Albumin 3.2 L Arterial Blood Glucose Coronavirus (PCR) 05/01/21 05/01/21 05/01/21 05:39 05:39 07:45 WBC MCHC RDW 16.0 H Lymph % (Auto) Lymph # (Auto) Baso # (Auto) Seg Neutrophils % Seg Neuts % (Manual) Lymphocytes % (Manual) Seg Neutrophils # Seg Neutrophils # Man Lymphocytes # (Manual) D-Dimer 3984.95 H ABG pH POC ABG pO2 ABG pO2 ABG HCO3 ABG O2 Saturation ABG Base Excess ABG Oxyhemoglobin ABG Sodium ABG Chloride ABG Glucose Oxyhemoglobin Carboxyhemoglobin Sodium Potassium Chloride Carbon Dioxide BUN Creatinine Glucose POC Glucose 229 H Hemoglobin A1c Ferritin AST ALT Alkaline Phosphatase Lactate Dehydrogenase C-Reactive Protein Total Protein Albumin Arterial Blood Glucose Coronavirus (PCR) 05/01/21 05/01/21 05/01/21 12:10 15:46 21:06 WBC MCHC RDW Lymph % (Auto) Lymph # (Auto) Baso # (Auto) Seg Neutrophils % Seg Neuts % (Manual) Lymphocytes % (Manual) Seg Neutrophils # Seg Neutrophils # Man Lymphocytes # (Manual) D-Dimer ABG pH POC ABG pO2 ABG pO2 ABG HCO3 ABG O2 Saturation ABG Base Excess ABG Oxyhemoglobin ABG Sodium ABG Chloride ABG Glucose Oxyhemoglobin Carboxyhemoglobin Sodium Potassium Chloride Carbon Dioxide BUN Creatinine Glucose POC Glucose 296 H 279 H 232 H Hemoglobin A1c Ferritin AST ALT Alkaline Phosphatase Lactate Dehydrogenase C-Reactive Protein Total Protein Albumin Arterial Blood Glucose Coronavirus (PCR) 05/02/21 05/02/21 05/02/21 04:55 04:55 04:55 WBC MCHC RDW 16.1 H Lymph % (Auto) Lymph # (Auto) Baso # (Auto) Seg Neutrophils % Seg Neuts % (Manual) Lymphocytes % (Manual) Seg Neutrophils # Seg Neutrophils # Man Lymphocytes # (Manual) D-Dimer 1401.08 H ABG pH POC ABG pO2 ABG pO2 ABG HCO3 ABG O2 Saturation ABG Base Excess ABG Oxyhemoglobin ABG Sodium ABG Chloride ABG Glucose Oxyhemoglobin Carboxyhemoglobin Sodium 131 L Potassium Chloride 95.5 L Carbon Dioxide BUN 20 H Creatinine 0.3 L Glucose 288 H POC Glucose Hemoglobin A1c Ferritin AST ALT Alkaline Phosphatase Lactate Dehydrogenase C-Reactive Protein Total Protein 6.0 L Albumin 3.1 L Arterial Blood Glucose Coronavirus (PCR) 05/02/21 05/02/21 05/02/21 07:53 11:45 15:25 WBC MCHC RDW Lymph % (Auto) Lymph # (Auto) Baso # (Auto) Seg Neutrophils % Seg Neuts % (Manual) Lymphocytes % (Manual) Seg Neutrophils # Seg Neutrophils # Man Lymphocytes # (Manual) D-Dimer ABG pH POC ABG pO2 ABG pO2 ABG HCO3 ABG O2 Saturation ABG Base Excess ABG Oxyhemoglobin ABG Sodium ABG Chloride ABG Glucose Oxyhemoglobin Carboxyhemoglobin Sodium Potassium Chloride Carbon Dioxide BUN Creatinine Glucose POC Glucose 180 H 228 H 275 H Hemoglobin A1c Ferritin AST ALT Alkaline Phosphatase Lactate Dehydrogenase C-Reactive Protein Total Protein Albumin Arterial Blood Glucose Coronavirus (PCR) 05/02/21 05/03/21 05/03/21 22:56 04:30 04:49 WBC MCHC RDW Lymph % (Auto) Lymph # (Auto) Baso # (Auto) Seg Neutrophils % Seg Neuts % (Manual) Lymphocytes % (Manual) Seg Neutrophils # Seg Neutrophils # Man Lymphocytes # (Manual) D-Dimer ABG pH 7.229 L POC ABG pO2 65.3 L ABG pO2 ABG HCO3 ABG O2 Saturation ABG Base Excess ABG Oxyhemoglobin 87.8 L ABG Sodium 133.0 L ABG Chloride 97.0 L ABG Glucose 403 H Oxyhemoglobin Carboxyhemoglobin Sodium 130 L Potassium Chloride 94.9 L Carbon Dioxide BUN 20 H Creatinine 0.5 L D Glucose 359 H POC Glucose 293 H Hemoglobin A1c Ferritin AST 54 H ALT 75 H Alkaline Phosphatase 138 H Lactate Dehydrogenase C-Reactive Protein Total Protein Albumin 3.6 L Arterial Blood Glucose 403 H Coronavirus (PCR) 05/03/21 05/03/21 05/03/21 05:27 11:26 17:57 WBC MCHC RDW Lymph % (Auto) Lymph # (Auto) Baso # (Auto) Seg Neutrophils % Seg Neuts % (Manual) Lymphocytes % (Manual) Seg Neutrophils # Seg Neutrophils # Man Lymphocytes # (Manual) D-Dimer ABG pH POC ABG pO2 ABG pO2 ABG HCO3 ABG O2 Saturation ABG Base Excess ABG Oxyhemoglobin ABG Sodium ABG Chloride ABG Glucose Oxyhemoglobin Carboxyhemoglobin Sodium Potassium Chloride Carbon Dioxide BUN Creatinine Glucose POC Glucose 361 H 297 H 226 H Hemoglobin A1c Ferritin AST ALT Alkaline Phosphatase Lactate Dehydrogenase C-Reactive Protein Total Protein Albumin Arterial Blood Glucose Coronavirus (PCR) 05/03/21 05/04/21 05/04/21 23:12 05:12 07:30 WBC MCHC RDW Lymph % (Auto) Lymph # (Auto) Baso # (Auto) Seg Neutrophils % Seg Neuts % (Manual) Lymphocytes % (Manual) Seg Neutrophils # Seg Neutrophils # Man Lymphocytes # (Manual) D-Dimer ABG pH POC ABG pO2 ABG pO2 ABG HCO3 ABG O2 Saturation ABG Base Excess ABG Oxyhemoglobin ABG Sodium ABG Chloride ABG Glucose Oxyhemoglobin Carboxyhemoglobin Sodium Potassium Chloride Carbon Dioxide BUN Creatinine Glucose POC Glucose 282 H 285 H 254 H Hemoglobin A1c Ferritin AST ALT Alkaline Phosphatase Lactate Dehydrogenase C-Reactive Protein Total Protein Albumin Arterial Blood Glucose Coronavirus (PCR) 05/04/21 05/04/21 05/04/21 08:58 11:45 16:07 WBC MCHC RDW Lymph % (Auto) Lymph # (Auto) Baso # (Auto) Seg Neutrophils % Seg Neuts % (Manual) Lymphocytes % (Manual) Seg Neutrophils # Seg Neutrophils # Man Lymphocytes # (Manual) D-Dimer ABG pH POC ABG pO2 ABG pO2 ABG HCO3 ABG O2 Saturation ABG Base Excess ABG Oxyhemoglobin ABG Sodium ABG Chloride ABG Glucose Oxyhemoglobin Carboxyhemoglobin Sodium 134 L Potassium Chloride Carbon Dioxide BUN 20 H Creatinine 0.3 L Glucose 267 H POC Glucose 244 H 297 H Hemoglobin A1c Ferritin AST ALT Alkaline Phosphatase Lactate Dehydrogenase C-Reactive Protein Total Protein 6.0 L Albumin 3.2 L Arterial Blood Glucose Coronavirus (PCR) 05/04/21 05/05/21 05/05/21 23:32 05:00 05:13 WBC MCHC RDW Lymph % (Auto) Lymph # (Auto) Baso # (Auto) Seg Neutrophils % Seg Neuts % (Manual) Lymphocytes % (Manual) Seg Neutrophils # Seg Neutrophils # Man Lymphocytes # (Manual) D-Dimer ABG pH POC ABG pO2 ABG pO2 ABG HCO3 ABG O2 Saturation ABG Base Excess ABG Oxyhemoglobin ABG Sodium ABG Chloride ABG Glucose Oxyhemoglobin Carboxyhemoglobin Sodium 132 L Potassium Chloride 96.4 L Carbon Dioxide BUN 22 H Creatinine 0.3 L Glucose 228 H POC Glucose 154 H 260 H Hemoglobin A1c Ferritin AST ALT 67 H Alkaline Phosphatase Lactate Dehydrogenase C-Reactive Protein Total Protein 6.1 L Albumin 3.2 L Arterial Blood Glucose Coronavirus (PCR) 05/05/21 05/05/21 05/05/21 11:32 17:49 23:07 WBC MCHC RDW Lymph % (Auto) Lymph # (Auto) Baso # (Auto) Seg Neutrophils % Seg Neuts % (Manual) Lymphocytes % (Manual) Seg Neutrophils # Seg Neutrophils # Man Lymphocytes # (Manual) D-Dimer ABG pH POC ABG pO2 ABG pO2 ABG HCO3 ABG O2 Saturation ABG Base Excess ABG Oxyhemoglobin ABG Sodium ABG Chloride ABG Glucose Oxyhemoglobin Carboxyhemoglobin Sodium Potassium Chloride Carbon Dioxide BUN Creatinine Glucose POC Glucose 279 H 308 H 213 H Hemoglobin A1c Ferritin AST ALT Alkaline Phosphatase Lactate Dehydrogenase C-Reactive Protein Total Protein Albumin Arterial Blood Glucose Coronavirus (PCR) 05/06/21 05/06/21 05/06/21 05:00 05:00 05:20 WBC MCHC RDW 16.8 H Lymph % (Auto) Lymph # (Auto) Baso # (Auto) Seg Neutrophils % Seg Neuts % (Manual) 99.0 H Lymphocytes % (Manual) Seg Neutrophils # Seg Neutrophils # Man 10.9 H Lymphocytes # (Manual) 0.0 L D-Dimer ABG pH POC ABG pO2 ABG pO2 ABG HCO3 ABG O2 Saturation ABG Base Excess ABG Oxyhemoglobin ABG Sodium ABG Chloride ABG Glucose Oxyhemoglobin Carboxyhemoglobin Sodium 133 L Potassium Chloride Carbon Dioxide BUN 21 H Creatinine 0.3 L Glucose 259 H POC Glucose 308 H Hemoglobin A1c Ferritin AST ALT Alkaline Phosphatase Lactate Dehydrogenase C-Reactive Protein Total Protein Albumin 3.2 L Arterial Blood Glucose Coronavirus (PCR) 05/06/21 05/06/21 05/06/21 11:24 17:54 21:32 WBC MCHC RDW Lymph % (Auto) Lymph # (Auto) Baso # (Auto) Seg Neutrophils % Seg Neuts % (Manual) Lymphocytes % (Manual) Seg Neutrophils # Seg Neutrophils # Man Lymphocytes # (Manual) D-Dimer ABG pH POC ABG pO2 ABG pO2 ABG HCO3 ABG O2 Saturation ABG Base Excess ABG Oxyhemoglobin ABG Sodium ABG Chloride ABG Glucose Oxyhemoglobin Carboxyhemoglobin Sodium Potassium Chloride Carbon Dioxide BUN Creatinine Glucose POC Glucose 262 H 124 H 246 H Hemoglobin A1c Ferritin AST ALT Alkaline Phosphatase Lactate Dehydrogenase C-Reactive Protein Total Protein Albumin Arterial Blood Glucose Coronavirus (PCR) 05/06/21 05/07/21 05/07/21 23:10 04:54 04:54 WBC MCHC RDW Lymph % (Auto) Lymph # (Auto) Baso # (Auto) Seg Neutrophils % Seg Neuts % (Manual) Lymphocytes % (Manual) Seg Neutrophils # Seg Neutrophils # Man Lymphocytes # (Manual) D-Dimer 1609.28 H ABG pH POC ABG pO2 ABG pO2 ABG HCO3 ABG O2 Saturation ABG Base Excess ABG Oxyhemoglobin ABG Sodium ABG Chloride ABG Glucose Oxyhemoglobin Carboxyhemoglobin Sodium 136 L Potassium Chloride Carbon Dioxide BUN 23 H Creatinine 0.3 L Glucose 110 H POC Glucose 249 H Hemoglobin A1c Ferritin AST ALT Alkaline Phosphatase Lactate Dehydrogenase C-Reactive Protein Total Protein 6.2 L Albumin 3.0 L Arterial Blood Glucose Coronavirus (PCR) 05/07/21 05/07/21 05/07/21 04:54 04:54 11:41 WBC MCHC RDW Lymph % (Auto) Lymph # (Auto) Baso # (Auto) Seg Neutrophils % Seg Neuts % (Manual) Lymphocytes % (Manual) Seg Neutrophils # Seg Neutrophils # Man Lymphocytes # (Manual) D-Dimer ABG pH POC ABG pO2 ABG pO2 ABG HCO3 ABG O2 Saturation ABG Base Excess ABG Oxyhemoglobin ABG Sodium ABG Chloride ABG Glucose Oxyhemoglobin Carboxyhemoglobin Sodium Potassium Chloride Carbon Dioxide BUN Creatinine Glucose POC Glucose 118 H Hemoglobin A1c Ferritin 296.1 H AST ALT Alkaline Phosphatase Lactate Dehydrogenase 724 H C-Reactive Protein Total Protein Albumin Arterial Blood Glucose Coronavirus (PCR) 05/07/21 05/07/21 05/08/21 16:43 22:34 06:44 WBC MCHC RDW Lymph % (Auto) Lymph # (Auto) Baso # (Auto) Seg Neutrophils % Seg Neuts % (Manual) Lymphocytes % (Manual) Seg Neutrophils # Seg Neutrophils # Man Lymphocytes # (Manual) D-Dimer ABG pH POC ABG pO2 ABG pO2 ABG HCO3 ABG O2 Saturation ABG Base Excess ABG Oxyhemoglobin ABG Sodium ABG Chloride ABG Glucose Oxyhemoglobin Carboxyhemoglobin Sodium Potassium Chloride Carbon Dioxide BUN Creatinine Glucose POC Glucose 159 H 233 H 235 H Hemoglobin A1c Ferritin AST ALT Alkaline Phosphatase Lactate Dehydrogenase C-Reactive Protein Total Protein Albumin Arterial Blood Glucose Coronavirus (PCR) 05/08/21 05/08/21 05/08/21 07:49 11:56 17:13 WBC MCHC RDW Lymph % (Auto) Lymph # (Auto) Baso # (Auto) Seg Neutrophils % Seg Neuts % (Manual) Lymphocytes % (Manual) Seg Neutrophils # Seg Neutrophils # Man Lymphocytes # (Manual) D-Dimer ABG pH POC ABG pO2 ABG pO2 ABG HCO3 ABG O2 Saturation ABG Base Excess ABG Oxyhemoglobin ABG Sodium ABG Chloride ABG Glucose Oxyhemoglobin Carboxyhemoglobin Sodium Potassium Chloride Carbon Dioxide BUN Creatinine Glucose POC Glucose 219 H 184 H 182 H Hemoglobin A1c Ferritin AST ALT Alkaline Phosphatase Lactate Dehydrogenase C-Reactive Protein Total Protein Albumin Arterial Blood Glucose Coronavirus (PCR) 05/08/21 05/09/21 05/09/21 23:35 05:20 05:20 WBC MCHC RDW Lymph % (Auto) Lymph # (Auto) Baso # (Auto) Seg Neutrophils % Seg Neuts % (Manual) Lymphocytes % (Manual) Seg Neutrophils # Seg Neutrophils # Man Lymphocytes # (Manual) D-Dimer 1003.87 H ABG pH POC ABG pO2 ABG pO2 ABG HCO3 ABG O2 Saturation ABG Base Excess ABG Oxyhemoglobin ABG Sodium ABG Chloride ABG Glucose Oxyhemoglobin Carboxyhemoglobin Sodium Potassium Chloride Carbon Dioxide BUN Creatinine Glucose POC Glucose 198 H Hemoglobin A1c Ferritin 378.7 H AST ALT Alkaline Phosphatase Lactate Dehydrogenase C-Reactive Protein Total Protein Albumin Arterial Blood Glucose Coronavirus (PCR) 05/09/21 05/09/21 05/09/21 05:20 06:04 12:53 WBC MCHC RDW Lymph % (Auto) Lymph # (Auto) Baso # (Auto) Seg Neutrophils % Seg Neuts % (Manual) Lymphocytes % (Manual) Seg Neutrophils # Seg Neutrophils # Man Lymphocytes # (Manual) D-Dimer ABG pH POC ABG pO2 ABG pO2 ABG HCO3 ABG O2 Saturation ABG Base Excess ABG Oxyhemoglobin ABG Sodium ABG Chloride ABG Glucose Oxyhemoglobin Carboxyhemoglobin Sodium Potassium Chloride Carbon Dioxide BUN Creatinine Glucose POC Glucose 159 H 180 H Hemoglobin A1c Ferritin AST ALT Alkaline Phosphatase Lactate Dehydrogenase 558 H C-Reactive Protein 2.40 H Total Protein Albumin Arterial Blood Glucose Coronavirus (PCR) 05/09/21 05/09/21 05/10/21 16:43 21:27 10:18 WBC MCHC RDW Lymph % (Auto) Lymph # (Auto) Baso # (Auto) Seg Neutrophils % Seg Neuts % (Manual) Lymphocytes % (Manual) Seg Neutrophils # Seg Neutrophils # Man Lymphocytes # (Manual) D-Dimer ABG pH POC ABG pO2 ABG pO2 ABG HCO3 ABG O2 Saturation ABG Base Excess ABG Oxyhemoglobin ABG Sodium ABG Chloride ABG Glucose Oxyhemoglobin Carboxyhemoglobin Sodium Potassium Chloride Carbon Dioxide BUN Creatinine Glucose POC Glucose 212 H 285 H 261 H Hemoglobin A1c Ferritin AST ALT Alkaline Phosphatase Lactate Dehydrogenase C-Reactive Protein Total Protein Albumin Arterial Blood Glucose Coronavirus (PCR) 05/10/21 05/10/21 05/11/21 17:58 18:02 00:29 WBC MCHC RDW Lymph % (Auto) Lymph # (Auto) Baso # (Auto) Seg Neutrophils % Seg Neuts % (Manual) Lymphocytes % (Manual) Seg Neutrophils # Seg Neutrophils # Man Lymphocytes # (Manual) D-Dimer ABG pH POC ABG pO2 ABG pO2 ABG HCO3 ABG O2 Saturation ABG Base Excess ABG Oxyhemoglobin ABG Sodium ABG Chloride ABG Glucose Oxyhemoglobin Carboxyhemoglobin Sodium Potassium Chloride Carbon Dioxide BUN Creatinine Glucose POC Glucose 213 H 179 H 149 H Hemoglobin A1c Ferritin AST ALT Alkaline Phosphatase Lactate Dehydrogenase C-Reactive Protein Total Protein Albumin Arterial Blood Glucose Coronavirus (PCR) 05/11/21 05/11/21 05/11/21 05:22 11:32 17:00 WBC 14.9 H MCHC RDW 18.9 H Lymph % (Auto) 4.9 L Lymph # (Auto) 0.7 L Baso # (Auto) 0.2 H Seg Neutrophils % Seg Neuts % (Manual) Lymphocytes % (Manual) Seg Neutrophils # 13.3 H Seg Neutrophils # Man Lymphocytes # (Manual) D-Dimer ABG pH POC ABG pO2 ABG pO2 ABG HCO3 ABG O2 Saturation ABG Base Excess ABG Oxyhemoglobin ABG Sodium ABG Chloride ABG Glucose Oxyhemoglobin Carboxyhemoglobin Sodium Potassium Chloride Carbon Dioxide BUN Creatinine Glucose POC Glucose 162 H 179 H Hemoglobin A1c Ferritin AST ALT Alkaline Phosphatase Lactate Dehydrogenase C-Reactive Protein Total Protein Albumin Arterial Blood Glucose Coronavirus (PCR) 05/11/21 05/11/21 05/11/21 17:00 17:33 22:03 WBC MCHC RDW Lymph % (Auto) Lymph # (Auto) Baso # (Auto) Seg Neutrophils % Seg Neuts % (Manual) Lymphocytes % (Manual) Seg Neutrophils # Seg Neutrophils # Man Lymphocytes # (Manual) D-Dimer ABG pH POC ABG pO2 ABG pO2 ABG HCO3 ABG O2 Saturation ABG Base Excess ABG Oxyhemoglobin ABG Sodium ABG Chloride ABG Glucose Oxyhemoglobin Carboxyhemoglobin Sodium 135 L Potassium Chloride 97.3 L Carbon Dioxide BUN 21 H Creatinine 0.3 L Glucose 133 H POC Glucose 140 H 282 H Hemoglobin A1c Ferritin AST ALT 60 H Alkaline Phosphatase Lactate Dehydrogenase C-Reactive Protein Total Protein Albumin 3.1 L Arterial Blood Glucose Coronavirus (PCR) 05/12/21 05/12/21 05/12/21 04:05 04:05 04:05 WBC MCHC RDW 18.4 H Lymph % (Auto) Lymph # (Auto) Baso # (Auto) Seg Neutrophils % Seg Neuts % (Manual) 94.0 H Lymphocytes % (Manual) 4.0 L Seg Neutrophils # Seg Neutrophils # Man Lymphocytes # (Manual) 0.3 L D-Dimer ABG pH POC ABG pO2 ABG pO2 ABG HCO3 ABG O2 Saturation ABG Base Excess ABG Oxyhemoglobin ABG Sodium ABG Chloride ABG Glucose Oxyhemoglobin Carboxyhemoglobin Sodium 136 L Potassium Chloride Carbon Dioxide BUN 18 H Creatinine 0.2 L Glucose 142 H POC Glucose Hemoglobin A1c Ferritin 350.7 H AST ALT Alkaline Phosphatase Lactate Dehydrogenase 546 H C-Reactive Protein Total Protein 6.1 L Albumin 3.0 L Arterial Blood Glucose Coronavirus (PCR) 05/12/21 05/12/21 05/12/21 05:11 11:17 16:27 WBC MCHC RDW Lymph % (Auto) Lymph # (Auto) Baso # (Auto) Seg Neutrophils % Seg Neuts % (Manual) Lymphocytes % (Manual) Seg Neutrophils # Seg Neutrophils # Man Lymphocytes # (Manual) D-Dimer ABG pH POC ABG pO2 ABG pO2 ABG HCO3 ABG O2 Saturation ABG Base Excess ABG Oxyhemoglobin ABG Sodium ABG Chloride ABG Glucose Oxyhemoglobin Carboxyhemoglobin Sodium Potassium Chloride Carbon Dioxide BUN Creatinine Glucose POC Glucose 152 H 190 H 261 H Hemoglobin A1c Ferritin AST ALT Alkaline Phosphatase Lactate Dehydrogenase C-Reactive Protein Total Protein Albumin Arterial Blood Glucose Coronavirus (PCR) 05/12/21 05/13/21 05/13/21 20:55 11:08 21:41 WBC MCHC RDW Lymph % (Auto) Lymph # (Auto) Baso # (Auto) Seg Neutrophils % Seg Neuts % (Manual) Lymphocytes % (Manual) Seg Neutrophils # Seg Neutrophils # Man Lymphocytes # (Manual) D-Dimer ABG pH POC ABG pO2 ABG pO2 ABG HCO3 ABG O2 Saturation ABG Base Excess ABG Oxyhemoglobin ABG Sodium ABG Chloride ABG Glucose Oxyhemoglobin Carboxyhemoglobin Sodium Potassium Chloride Carbon Dioxide BUN Creatinine Glucose POC Glucose 231 H 106 H 174 H Hemoglobin A1c Ferritin AST ALT Alkaline Phosphatase Lactate Dehydrogenase C-Reactive Protein Total Protein Albumin Arterial Blood Glucose Coronavirus (PCR) 05/14/21 05/14/21 05/14/21 00:53 02:23 06:06 WBC MCHC RDW Lymph % (Auto) Lymph # (Auto) Baso # (Auto) Seg Neutrophils % Seg Neuts % (Manual) Lymphocytes % (Manual) Seg Neutrophils # Seg Neutrophils # Man Lymphocytes # (Manual) D-Dimer ABG pH POC ABG pO2 ABG pO2 130.3 H ABG HCO3 30.6 H ABG O2 Saturation ABG Base Excess 4.9 H ABG Oxyhemoglobin ABG Sodium ABG Chloride ABG Glucose Oxyhemoglobin Carboxyhemoglobin Sodium Potassium Chloride Carbon Dioxide BUN Creatinine Glucose POC Glucose 229 H 119 H Hemoglobin A1c Ferritin AST ALT Alkaline Phosphatase Lactate Dehydrogenase C-Reactive Protein Total Protein Albumin Arterial Blood Glucose Coronavirus (PCR) 05/14/21 05/14/21 05/14/21 07:13 07:13 07:13 WBC MCHC RDW Lymph % (Auto) Lymph # (Auto) Baso # (Auto) Seg Neutrophils % Seg Neuts % (Manual) Lymphocytes % (Manual) Seg Neutrophils # Seg Neutrophils # Man Lymphocytes # (Manual) D-Dimer 712.80 H ABG pH POC ABG pO2 ABG pO2 ABG HCO3 ABG O2 Saturation ABG Base Excess ABG Oxyhemoglobin ABG Sodium ABG Chloride ABG Glucose Oxyhemoglobin Carboxyhemoglobin Sodium 133 L Potassium Chloride 95.5 L Carbon Dioxide 32 H BUN Creatinine 0.2 L Glucose 137 H POC Glucose Hemoglobin A1c Ferritin 283.5 H AST ALT 63 H Alkaline Phosphatase Lactate Dehydrogenase 563 H C-Reactive Protein Total Protein 6.1 L Albumin 3.0 L Arterial Blood Glucose Coronavirus (PCR) 05/14/21 05/14/21 05/14/21 12:21 15:33 21:50 WBC MCHC RDW Lymph % (Auto) Lymph # (Auto) Baso # (Auto) Seg Neutrophils % Seg Neuts % (Manual) Lymphocytes % (Manual) Seg Neutrophils # Seg Neutrophils # Man Lymphocytes # (Manual) D-Dimer ABG pH POC ABG pO2 ABG pO2 ABG HCO3 ABG O2 Saturation ABG Base Excess ABG Oxyhemoglobin ABG Sodium ABG Chloride ABG Glucose Oxyhemoglobin Carboxyhemoglobin Sodium Potassium Chloride Carbon Dioxide BUN Creatinine Glucose POC Glucose 143 H 204 H 202 H Hemoglobin A1c Ferritin AST ALT Alkaline Phosphatase Lactate Dehydrogenase C-Reactive Protein Total Protein Albumin Arterial Blood Glucose Coronavirus (PCR) 05/15/21 05/15/21 05/15/21 05:05 11:12 16:39 WBC MCHC RDW Lymph % (Auto) Lymph # (Auto) Baso # (Auto) Seg Neutrophils % Seg Neuts % (Manual) Lymphocytes % (Manual) Seg Neutrophils # Seg Neutrophils # Man Lymphocytes # (Manual) D-Dimer ABG pH POC ABG pO2 ABG pO2 ABG HCO3 ABG O2 Saturation ABG Base Excess ABG Oxyhemoglobin ABG Sodium ABG Chloride ABG Glucose Oxyhemoglobin Carboxyhemoglobin Sodium Potassium Chloride Carbon Dioxide BUN Creatinine Glucose POC Glucose 125 H 201 H 241 H Hemoglobin A1c Ferritin AST ALT Alkaline Phosphatase Lactate Dehydrogenase C-Reactive Protein Total Protein Albumin Arterial Blood Glucose Coronavirus (PCR) 05/15/21 05/16/21 05/16/21 21:31 05:04 10:40 WBC MCHC RDW Lymph % (Auto) Lymph # (Auto) Baso # (Auto) Seg Neutrophils % Seg Neuts % (Manual) Lymphocytes % (Manual) Seg Neutrophils # Seg Neutrophils # Man Lymphocytes # (Manual) D-Dimer ABG pH POC ABG pO2 ABG pO2 ABG HCO3 ABG O2 Saturation ABG Base Excess ABG Oxyhemoglobin ABG Sodium ABG Chloride ABG Glucose Oxyhemoglobin Carboxyhemoglobin Sodium Potassium Chloride Carbon Dioxide BUN Creatinine Glucose POC Glucose 234 H 123 H 231 H Hemoglobin A1c Ferritin AST ALT Alkaline Phosphatase Lactate Dehydrogenase C-Reactive Protein Total Protein Albumin Arterial Blood Glucose Coronavirus (PCR) 05/16/21 05/16/21 05/17/21 18:23 21:29 06:20 WBC MCHC RDW 18.8 H Lymph % (Auto) 10.2 L Lymph # (Auto) 0.8 L Baso # (Auto) Seg Neutrophils % 85.8 H Seg Neuts % (Manual) Lymphocytes % (Manual) Seg Neutrophils # Seg Neutrophils # Man Lymphocytes # (Manual) D-Dimer ABG pH POC ABG pO2 ABG pO2 ABG HCO3 ABG O2 Saturation ABG Base Excess ABG Oxyhemoglobin ABG Sodium ABG Chloride ABG Glucose Oxyhemoglobin Carboxyhemoglobin Sodium Potassium Chloride Carbon Dioxide BUN Creatinine Glucose POC Glucose 266 H 234 H Hemoglobin A1c Ferritin AST ALT Alkaline Phosphatase Lactate Dehydrogenase C-Reactive Protein Total Protein Albumin Arterial Blood Glucose Coronavirus (PCR) 05/17/21 05/17/21 05/17/21 06:20 11:06 16:36 WBC MCHC RDW Lymph % (Auto) Lymph # (Auto) Baso # (Auto) Seg Neutrophils % Seg Neuts % (Manual) Lymphocytes % (Manual) Seg Neutrophils # Seg Neutrophils # Man Lymphocytes # (Manual) D-Dimer ABG pH POC ABG pO2 ABG pO2 ABG HCO3 ABG O2 Saturation ABG Base Excess ABG Oxyhemoglobin ABG Sodium ABG Chloride ABG Glucose Oxyhemoglobin Carboxyhemoglobin Sodium Potassium Chloride Carbon Dioxide 33 H BUN Creatinine 0.2 L Glucose 101 H POC Glucose 209 H 180 H Hemoglobin A1c Ferritin AST ALT Alkaline Phosphatase Lactate Dehydrogenase C-Reactive Protein Total Protein Albumin Arterial Blood Glucose Coronavirus (PCR) 05/17/21 05/18/21 05/18/21 21:06 12:00 15:06 WBC MCHC RDW Lymph % (Auto) Lymph # (Auto) Baso # (Auto) Seg Neutrophils % Seg Neuts % (Manual) Lymphocytes % (Manual) Seg Neutrophils # Seg Neutrophils # Man Lymphocytes # (Manual) D-Dimer 874.02 H ABG pH POC ABG pO2 ABG pO2 ABG HCO3 ABG O2 Saturation ABG Base Excess ABG Oxyhemoglobin ABG Sodium ABG Chloride ABG Glucose Oxyhemoglobin Carboxyhemoglobin Sodium Potassium Chloride Carbon Dioxide BUN Creatinine Glucose POC Glucose 256 H 139 H Hemoglobin A1c Ferritin AST ALT Alkaline Phosphatase Lactate Dehydrogenase C-Reactive Protein Total Protein Albumin Arterial Blood Glucose Coronavirus (PCR) 05/18/21 05/18/21 05/18/21 15:06 15:06 16:08 WBC MCHC RDW Lymph % (Auto) Lymph # (Auto) Baso # (Auto) Seg Neutrophils % Seg Neuts % (Manual) Lymphocytes % (Manual) Seg Neutrophils # Seg Neutrophils # Man Lymphocytes # (Manual) D-Dimer ABG pH POC ABG pO2 ABG pO2 ABG HCO3 ABG O2 Saturation ABG Base Excess ABG Oxyhemoglobin ABG Sodium ABG Chloride ABG Glucose Oxyhemoglobin Carboxyhemoglobin Sodium Potassium Chloride Carbon Dioxide BUN Creatinine Glucose POC Glucose 178 H Hemoglobin A1c Ferritin 289.6 H AST ALT Alkaline Phosphatase Lactate Dehydrogenase 605 H C-Reactive Protein Total Protein Albumin Arterial Blood Glucose Coronavirus (PCR) 05/18/21 05/19/21 05/19/21 21:22 11:57 15:26 WBC MCHC RDW Lymph % (Auto) Lymph # (Auto) Baso # (Auto) Seg Neutrophils % Seg Neuts % (Manual) Lymphocytes % (Manual) Seg Neutrophils # Seg Neutrophils # Man Lymphocytes # (Manual) D-Dimer ABG pH POC ABG pO2 ABG pO2 ABG HCO3 ABG O2 Saturation ABG Base Excess ABG Oxyhemoglobin ABG Sodium ABG Chloride ABG Glucose Oxyhemoglobin Carboxyhemoglobin Sodium Potassium Chloride Carbon Dioxide BUN Creatinine Glucose POC Glucose 241 H 201 H 209 H Hemoglobin A1c Ferritin AST ALT Alkaline Phosphatase Lactate Dehydrogenase C-Reactive Protein Total Protein Albumin Arterial Blood Glucose Coronavirus (PCR) 05/19/21 05/20/21 05/20/21 20:59 07:38 08:01 WBC MCHC RDW 19.7 H Lymph % (Auto) 8.3 L Lymph # (Auto) 0.8 L Baso # (Auto) Seg Neutrophils % 88.6 H Seg Neuts % (Manual) Lymphocytes % (Manual) Seg Neutrophils # 8.4 H Seg Neutrophils # Man Lymphocytes # (Manual) D-Dimer ABG pH POC ABG pO2 ABG pO2 ABG HCO3 ABG O2 Saturation ABG Base Excess ABG Oxyhemoglobin ABG Sodium ABG Chloride ABG Glucose Oxyhemoglobin Carboxyhemoglobin Sodium Potassium Chloride Carbon Dioxide BUN Creatinine Glucose POC Glucose 226 H 130 H Hemoglobin A1c Ferritin AST ALT Alkaline Phosphatase Lactate Dehydrogenase C-Reactive Protein Total Protein Albumin Arterial Blood Glucose Coronavirus (PCR) 05/20/21 08:01 WBC MCHC RDW Lymph % (Auto) Lymph # (Auto) Baso # (Auto) Seg Neutrophils % Seg Neuts % (Manual) Lymphocytes % (Manual) Seg Neutrophils # Seg Neutrophils # Man Lymphocytes # (Manual) D-Dimer ABG pH POC ABG pO2 ABG pO2 ABG HCO3 ABG O2 Saturation ABG Base Excess ABG Oxyhemoglobin ABG Sodium ABG Chloride ABG Glucose Oxyhemoglobin Carboxyhemoglobin Sodium Potassium Chloride Carbon Dioxide BUN 18 H Creatinine 0.2 L Glucose 132 H POC Glucose Hemoglobin A1c Ferritin AST ALT Alkaline Phosphatase Lactate Dehydrogenase C-Reactive Protein Total Protein Albumin Arterial Blood Glucose Coronavirus (PCR)
[2021-05-20] MEDS: ACETAMINOPHEN 325 MG TAB PO PRN (14:09)
[2021-05-20] MEDS: ENOXAPARIN 40 MG/0.4 ML INJ SUB-Q SCH (21:24)
[2021-05-20] MEDS: SENNOSIDES 8.6 MG TAB PO SCH (22:05)
[2021-05-21] MEDS: LORazepam 2 MG/ML VIAL IV SCH ×5 (00:18→23:58)
[2021-05-21] MEDS: methylPREDNISolone Sod Succinate 125 MG/2 ML INJ IV SCH ×3 (05:49→23:49)
[2021-05-21] MEDS: MINERAL OIL/PETROLATUM, WHITE OPHTH OINT 3.5 GM OU SCH ×3 (05:49→23:52)
--- NOTE | 2021-05-21 09:13 | Progress Note ---
Assessment and Plan 50 y/o female with acute respiratory failure secondary to COVID19 pneumonia. 05/21/21: Wean as tolerated. Prone if able. Guarded prognosis 05/20/21: COntinue current level of care. 05/17/21: Prone if possible. Wean FiO2 for sats >88%. COntinue scheduled ativan. Prognosis is very very guarded. Unfunded so not a candidate for LTACH 05/16/21: Prone if willing. Wean FIO2 if patient will allow. Anxiety control. Prognosis still remains very guarded. 05/15/21: Not sure if MAR is accurate but may have only gotten one dose of scheduled anixolytic therapy. Continue proning as tolerated, and wean FiO2 and flow for sats >88%. Prognosi remains very very guarded to poor. 05/14/21: Will discontinue the buspar and make the ativan scheduled but will do q6 as oppose to q4 and attempt to leave parameters for nursing when not to give. If anxiety could be controlled, feel that patient could be weaned further. She has no funding so she is not a candidate for LTACH. Prone if possible. Guarded prognosis. This is her 28 day. 05/13/21: Ordered buspar 10 BID to start with to help with anxiety. Please continue to wean FiO2 as tolerated. Will remind nurse that there is PRN ativan available. Continue higher doses of steroids. Prone if able. 05/12/21: Patient may need something longer acting for anxiety. Per chart has not gotten any ativan in days. Would be ok with either buspar or low dose klonopin bid. COntinue higher doses of steroids as patient seems to be responding. Prone if possible. 05/11/21: Continue high doses of steroids and continue to wean for sats >88%. Please encourage proning. 05/10/21: Will continue this dose of steroid at least through the weekend and assess for improvement. will speak with RT about aggressive weaning. Full dose anticoagulation continues. Very very guarded to poor prognosis. 05/09/21: Going to consider increasing steroids to 125q8, maybe as early as tomorrow. continue full dose anticoagulation. 05/08/21: Continue anticoagulation and steroids. Prone if possible. Anxiety control. No objection to CTA if this can happen. Very very guarded prognosis. 05/07/21: Spoke with IMS, not opposed to full dose anticoagulation. If patient goes back on NRB HFNC combo may need to consider restarting PPN again. Encourage proning. Guarded prognosis. 05/06/21: Continue to wean FiO2 and flow for sats >88%. Tolerating diet now so will stop PPN. Continue anxiety control. Continue IV steroids. Would not object to transfer to [facility] floor if bed available. Not sure why she was titrated back up to 100% from 85 as all sats documented in the RT's notes were acceptable. Same for under vital signs as well. 05/03/21: Set back last night from yesterday. Continue bipap therapy for now and attempt HFNC maybe later this afternoon. Continue to use PRN ativan but may need to schedule as she likely took off mask from anxiety. Continue IV steroids. Hold on transfer to [facility] Floor. 05/02/21: Continue to wean FiO2 as tolerated for sats >88%. Will continue bipap at night. Patient has no funding so not a candidate for LTACH. Given that she has been stable and not requiring the combo of HFNC and NRB, will consider moving to [facility] floor. 05/01/21: Continue to wean FiO2 for sats >88%. A sat of 90 is more than acceptable and oxygen should not be increased for this unless patient desats and remains at a sat lower than 88. Bipap at night to give some form of relief and HFNC during the day. Currently on just this alone which is improvement. Ok with daily diuresis but must monitor renal function and BP closely. She was over diuresed last week and we ended up giving fluid back. Prognosis remains guarded. 04/30/21: Will start CLinimix today for nutritional support, without electrolytes. Check labs in am. Prone if able. Continue precedx for anxiety. Very very guarded prognosis. Attempting our best to not intubate. 04/29/21: Continue precedex. Continue IV solumedrol. Prone if able. Guarded prognosis. 04/28/21: Continue Precedex. Picc team attempting to place line now. Stable on Bipap. Ordered steroids IV solumedrol to start today. Prognosis remains guarded, still at very high risk for intubation. 04/27/21: Hypotension improving/improved. Hold on any further lasix dosing. Continue precedex to help with anxeity. later today please attempt HFNC with NRB if needed. Attempt to feed if possible. Steroids end today, please order solumedrol 40q8 to start tomorrow (04/28/21). guarded prognosis. 04/26/21: Hypotension today, most likely from precedex use and diuresis that I did the last several days. Will bolus again today. Consider midodrine if BP does not respond. 04/25/21: Lasix again today. Keep PRN ativan for now. Hold on precedex for now. Guarded prognosis. Labs ordered for tomorrow. 04/24/21: Lasix today. Will also start patient on low dose PRN ativan. If this does not help will then try precedex. Guarded prognosis. 04/23/21: Prone as tolerated. No lasix today. Continue decadron. Guarded prognosis. High risk for intubation and high mortality with intubation. 04/19/21: Prone as tolerated during the day and sleep prone at night. Continue IV remdesivir and steroids. Did get actemra. Guarded prognosis. 1. Daily net negative state 2. Prone if possible 3. IV remdesivir. 4. Should be a candidate for Actemra 5. IV steroids 6. Guarded Prognosis Subjective Date of service: 05/21/21 Principal diagnosis: Covid-19 Interval history: clinically no change Objective Vital Signs - 12hr 05/20/21 05/20/21 05/20/21 21:15 22:00 22:22 Temperature 97.8 F Pulse Rate 76 Respiratory 22 Rate Blood Pressure 106/54 O2 Sat by Pulse 96 96 93 Oximetry 05/21/21 05/21/21 05/21/21 03:10 08:00 08:10 Temperature Pulse Rate Respiratory Rate Blood Pressure O2 Sat by Pulse 97 70 L 95 Oximetry Constitutional: no acute distress, alert Eyes: non-icteric ENT: oropharynx moist Neck: supple Effort: normal Ascultation: Bilateral: diminished breath sounds Cardiovascular: regular rate and rhythm Gastrointestinal: normoactive bowel sounds, soft, non-tender, non-distended Integumentary: normal Extremities: no cyanosis, no edema, pink and warm Neurologic: normal mental status, non-focal exam, pupils equal and round, CN II- XII normal Psychiatric: mood appropriate, affect normal CBC and BMP: 05/20/21 08:01 05/20/21 08:01 ABG, PT/INR, D-dimer: ABG ABG pH 7.403 pH Units (7.350-7.450) 05/14/21 02:23 POC ABG pCO2 45.4 mmHg (32.0-48.0) 05/03/21 04:49 ABG pCO2 50.2 mm Hg 05/14/21 02:23 POC ABG pO2 65.3 mmHg (83-108) L 05/03/21 04:49 ABG pO2 130.3 mm Hg (80.0-90.0) H 05/14/21 02:23 POC ABG HCO3 18.5 05/03/21 04:49 ABG O2 Saturation 98.5 % (95.0-99.0) 05/14/21 02:23 PT/INR, D-dimer D-Dimer 874.02 ng/mlDDU (0-234) H 05/18/21 15:06 Abnormal lab findings: Abnormal Labs 04/16/21 04/16/21 04/16/21 11:42 11:42 11:42 WBC MCHC RDW 16.1 H Lymph % (Auto) 7.8 L Lymph # (Auto) 0.8 L Baso # (Auto) Seg Neutrophils % 87.7 H Seg Neuts % (Manual) Lymphocytes % (Manual) Seg Neutrophils # 8.5 H Seg Neutrophils # Man Lymphocytes # (Manual) D-Dimer 338.70 H ABG pH POC ABG pO2 ABG pO2 ABG HCO3 ABG O2 Saturation ABG Base Excess ABG Oxyhemoglobin ABG Sodium ABG Chloride ABG Glucose Oxyhemoglobin Carboxyhemoglobin Sodium Potassium Chloride Carbon Dioxide BUN Creatinine Glucose 194 H POC Glucose Hemoglobin A1c Ferritin AST ALT Alkaline Phosphatase Lactate Dehydrogenase C-Reactive Protein Total Protein 8.4 H Albumin 3.8 L Arterial Blood Glucose Coronavirus (PCR) 04/16/21 04/16/21 04/17/21 11:42 11:42 03:50 WBC MCHC RDW 16.0 H Lymph % (Auto) 7.7 L Lymph # (Auto) 0.6 L Baso # (Auto) Seg Neutrophils % 89.8 H Seg Neuts % (Manual) Lymphocytes % (Manual) Seg Neutrophils # Seg Neutrophils # Man Lymphocytes # (Manual) D-Dimer ABG pH POC ABG pO2 ABG pO2 ABG HCO3 ABG O2 Saturation ABG Base Excess ABG Oxyhemoglobin ABG Sodium ABG Chloride ABG Glucose Oxyhemoglobin Carboxyhemoglobin Sodium Potassium Chloride Carbon Dioxide BUN Creatinine Glucose 195 H POC Glucose Hemoglobin A1c Ferritin 254.3 H AST ALT Alkaline Phosphatase Lactate Dehydrogenase 359 H C-Reactive Protein 15.20 H Total Protein Albumin Arterial Blood Glucose Coronavirus (PCR) 04/17/21 04/17/21 04/17/21 03:50 08:26 08:26 WBC MCHC RDW Lymph % (Auto) Lymph # (Auto) Baso # (Auto) Seg Neutrophils % Seg Neuts % (Manual) Lymphocytes % (Manual) Seg Neutrophils # Seg Neutrophils # Man Lymphocytes # (Manual) D-Dimer 262.48 H ABG pH POC ABG pO2 ABG pO2 ABG HCO3 ABG O2 Saturation ABG Base Excess ABG Oxyhemoglobin ABG Sodium ABG Chloride ABG Glucose Oxyhemoglobin Carboxyhemoglobin Sodium Potassium Chloride Carbon Dioxide BUN 20 H Creatinine 0.5 L Glucose 249 H 225 H POC Glucose Hemoglobin A1c Ferritin AST ALT Alkaline Phosphatase Lactate Dehydrogenase 338 H C-Reactive Protein 17.20 H Total Protein Albumin 3.2 L Arterial Blood Glucose Coronavirus (PCR) 04/17/21 04/17/21 04/17/21 08:26 15:04 Unknown WBC MCHC RDW Lymph % (Auto) Lymph # (Auto) Baso # (Auto) Seg Neutrophils % Seg Neuts % (Manual) Lymphocytes % (Manual) Seg Neutrophils # Seg Neutrophils # Man Lymphocytes # (Manual) D-Dimer ABG pH POC ABG pO2 ABG pO2 ABG HCO3 ABG O2 Saturation ABG Base Excess ABG Oxyhemoglobin ABG Sodium ABG Chloride ABG Glucose Oxyhemoglobin Carboxyhemoglobin Sodium Potassium Chloride Carbon Dioxide BUN 20 H Creatinine 0.5 L Glucose 246 H POC Glucose Hemoglobin A1c Ferritin 392.0 H AST ALT Alkaline Phosphatase Lactate Dehydrogenase C-Reactive Protein Total Protein 8.3 H Albumin 3.1 L Arterial Blood Glucose Coronavirus (PCR) Positive A 04/18/21 04/18/21 04/18/21 05:06 05:06 07:36 WBC 11.6 H MCHC RDW 16.1 H Lymph % (Auto) Lymph # (Auto) Baso # (Auto) Seg Neutrophils % Seg Neuts % (Manual) Lymphocytes % (Manual) Seg Neutrophils # Seg Neutrophils # Man Lymphocytes # (Manual) D-Dimer ABG pH POC ABG pO2 ABG pO2 ABG HCO3 ABG O2 Saturation ABG Base Excess ABG Oxyhemoglobin ABG Sodium ABG Chloride ABG Glucose Oxyhemoglobin Carboxyhemoglobin Sodium Potassium 5.2 H Chloride Carbon Dioxide BUN 22 H Creatinine 0.5 L Glucose 315 H POC Glucose Hemoglobin A1c 8.5 H Ferritin AST ALT Alkaline Phosphatase Lactate Dehydrogenase C-Reactive Protein Total Protein Albumin 3.3 L Arterial Blood Glucose Coronavirus (PCR) 04/18/21 04/18/21 04/18/21 11:59 16:43 23:24 WBC MCHC RDW Lymph % (Auto) Lymph # (Auto) Baso # (Auto) Seg Neutrophils % Seg Neuts % (Manual) Lymphocytes % (Manual) Seg Neutrophils # Seg Neutrophils # Man Lymphocytes # (Manual) D-Dimer ABG pH POC ABG pO2 ABG pO2 ABG HCO3 ABG O2 Saturation ABG Base Excess ABG Oxyhemoglobin ABG Sodium ABG Chloride ABG Glucose Oxyhemoglobin Carboxyhemoglobin Sodium Potassium Chloride Carbon Dioxide BUN Creatinine Glucose POC Glucose 284 H 273 H 290 H Hemoglobin A1c Ferritin AST ALT Alkaline Phosphatase Lactate Dehydrogenase C-Reactive Protein Total Protein Albumin Arterial Blood Glucose Coronavirus (PCR) 04/19/21 04/19/21 04/19/21 04:19 04:19 08:10 WBC MCHC RDW 15.7 H Lymph % (Auto) Lymph # (Auto) Baso # (Auto) Seg Neutrophils % Seg Neuts % (Manual) Lymphocytes % (Manual) Seg Neutrophils # Seg Neutrophils # Man Lymphocytes # (Manual) D-Dimer ABG pH POC ABG pO2 ABG pO2 ABG HCO3 ABG O2 Saturation ABG Base Excess ABG Oxyhemoglobin ABG Sodium ABG Chloride ABG Glucose Oxyhemoglobin Carboxyhemoglobin Sodium Potassium Chloride Carbon Dioxide BUN 27 H Creatinine 0.4 L Glucose 184 H POC Glucose 194 H Hemoglobin A1c Ferritin AST ALT Alkaline Phosphatase Lactate Dehydrogenase C-Reactive Protein Total Protein Albumin 3.1 L Arterial Blood Glucose Coronavirus (PCR) 04/19/21 04/19/21 04/19/21 11:38 16:25 22:04 WBC MCHC RDW Lymph % (Auto) Lymph # (Auto) Baso # (Auto) Seg Neutrophils % Seg Neuts % (Manual) Lymphocytes % (Manual) Seg Neutrophils # Seg Neutrophils # Man Lymphocytes # (Manual) D-Dimer ABG pH POC ABG pO2 ABG pO2 ABG HCO3 ABG O2 Saturation ABG Base Excess ABG Oxyhemoglobin ABG Sodium ABG Chloride ABG Glucose Oxyhemoglobin Carboxyhemoglobin Sodium Potassium Chloride Carbon Dioxide BUN Creatinine Glucose POC Glucose 224 H 297 H 251 H Hemoglobin A1c Ferritin AST ALT Alkaline Phosphatase Lactate Dehydrogenase C-Reactive Protein Total Protein Albumin Arterial Blood Glucose Coronavirus (PCR) 04/20/21 04/20/21 04/20/21 05:28 08:43 16:21 WBC MCHC RDW Lymph % (Auto) Lymph # (Auto) Baso # (Auto) Seg Neutrophils % Seg Neuts % (Manual) Lymphocytes % (Manual) Seg Neutrophils # Seg Neutrophils # Man Lymphocytes # (Manual) D-Dimer ABG pH POC ABG pO2 ABG pO2 ABG HCO3 ABG O2 Saturation ABG Base Excess ABG Oxyhemoglobin ABG Sodium ABG Chloride ABG Glucose Oxyhemoglobin Carboxyhemoglobin Sodium Potassium Chloride Carbon Dioxide BUN 27 H Creatinine Glucose 192 H POC Glucose 173 H 253 H Hemoglobin A1c Ferritin AST ALT Alkaline Phosphatase Lactate Dehydrogenase C-Reactive Protein Total Protein Albumin 3.0 L Arterial Blood Glucose Coronavirus (PCR) 04/21/21 04/21/21 04/21/21 07:58 12:05 16:08 WBC MCHC RDW Lymph % (Auto) Lymph # (Auto) Baso # (Auto) Seg Neutrophils % Seg Neuts % (Manual) Lymphocytes % (Manual) Seg Neutrophils # Seg Neutrophils # Man Lymphocytes # (Manual) D-Dimer ABG pH POC ABG pO2 ABG pO2 ABG HCO3 ABG O2 Saturation ABG Base Excess ABG Oxyhemoglobin ABG Sodium ABG Chloride ABG Glucose Oxyhemoglobin Carboxyhemoglobin Sodium Potassium Chloride Carbon Dioxide BUN Creatinine Glucose POC Glucose 140 H 252 H 214 H Hemoglobin A1c Ferritin AST ALT Alkaline Phosphatase Lactate Dehydrogenase C-Reactive Protein Total Protein Albumin Arterial Blood Glucose Coronavirus (PCR) 04/21/21 04/22/21 04/22/21 21:42 08:37 12:01 WBC MCHC RDW Lymph % (Auto) Lymph # (Auto) Baso # (Auto) Seg Neutrophils % Seg Neuts % (Manual) Lymphocytes % (Manual) Seg Neutrophils # Seg Neutrophils # Man Lymphocytes # (Manual) D-Dimer ABG pH 7.457 H POC ABG pO2 49.4 L ABG pO2 ABG HCO3 ABG O2 Saturation ABG Base Excess ABG Oxyhemoglobin 85.6 L ABG Sodium ABG Chloride ABG Glucose 121 H Oxyhemoglobin Carboxyhemoglobin 0.3 L Sodium Potassium Chloride Carbon Dioxide BUN Creatinine Glucose POC Glucose 162 H 227 H Hemoglobin A1c Ferritin AST ALT Alkaline Phosphatase Lactate Dehydrogenase C-Reactive Protein Total Protein Albumin Arterial Blood Glucose 121 H Coronavirus (PCR) 04/22/21 04/22/21 04/23/21 16:26 22:23 04:52 WBC MCHC RDW 15.7 H Lymph % (Auto) Lymph # (Auto) Baso # (Auto) Seg Neutrophils % Seg Neuts % (Manual) Lymphocytes % (Manual) Seg Neutrophils # Seg Neutrophils # Man Lymphocytes # (Manual) D-Dimer ABG pH POC ABG pO2 ABG pO2 ABG HCO3 ABG O2 Saturation ABG Base Excess ABG Oxyhemoglobin ABG Sodium ABG Chloride ABG Glucose Oxyhemoglobin Carboxyhemoglobin Sodium Potassium Chloride Carbon Dioxide BUN Creatinine Glucose POC Glucose 200 H 136 H Hemoglobin A1c Ferritin AST ALT Alkaline Phosphatase Lactate Dehydrogenase C-Reactive Protein Total Protein Albumin Arterial Blood Glucose Coronavirus (PCR) 04/23/21 04/23/21 04/23/21 04:52 12:06 17:41 WBC MCHC RDW Lymph % (Auto) Lymph # (Auto) Baso # (Auto) Seg Neutrophils % Seg Neuts % (Manual) Lymphocytes % (Manual) Seg Neutrophils # Seg Neutrophils # Man Lymphocytes # (Manual) D-Dimer ABG pH POC ABG pO2 ABG pO2 ABG HCO3 ABG O2 Saturation ABG Base Excess ABG Oxyhemoglobin ABG Sodium ABG Chloride ABG Glucose Oxyhemoglobin Carboxyhemoglobin Sodium 136 L Potassium Chloride 97.7 L Carbon Dioxide BUN 23 H Creatinine Glucose 101 H POC Glucose 202 H 169 H Hemoglobin A1c Ferritin AST 46 H ALT Alkaline Phosphatase Lactate Dehydrogenase C-Reactive Protein Total Protein Albumin 3.3 L Arterial Blood Glucose Coronavirus (PCR) 04/23/21 04/24/21 04/24/21 23:08 05:17 08:38 WBC MCHC RDW Lymph % (Auto) Lymph # (Auto) Baso # (Auto) Seg Neutrophils % Seg Neuts % (Manual) Lymphocytes % (Manual) Seg Neutrophils # Seg Neutrophils # Man Lymphocytes # (Manual) D-Dimer ABG pH POC ABG pO2 ABG pO2 ABG HCO3 ABG O2 Saturation ABG Base Excess ABG Oxyhemoglobin ABG Sodium ABG Chloride ABG Glucose Oxyhemoglobin Carboxyhemoglobin Sodium Potassium Chloride Carbon Dioxide BUN Creatinine Glucose POC Glucose 111 H 108 H 126 H Hemoglobin A1c Ferritin AST ALT Alkaline Phosphatase Lactate Dehydrogenase C-Reactive Protein Total Protein Albumin Arterial Blood Glucose Coronavirus (PCR) 04/24/21 04/24/21 04/24/21 11:54 17:57 21:23 WBC MCHC RDW Lymph % (Auto) Lymph # (Auto) Baso # (Auto) Seg Neutrophils % Seg Neuts % (Manual) Lymphocytes % (Manual) Seg Neutrophils # Seg Neutrophils # Man Lymphocytes # (Manual) D-Dimer ABG pH POC ABG pO2 ABG pO2 ABG HCO3 ABG O2 Saturation ABG Base Excess ABG Oxyhemoglobin ABG Sodium ABG Chloride ABG Glucose Oxyhemoglobin Carboxyhemoglobin Sodium Potassium Chloride Carbon Dioxide BUN Creatinine Glucose POC Glucose 147 H 177 H 138 H Hemoglobin A1c Ferritin AST ALT Alkaline Phosphatase Lactate Dehydrogenase C-Reactive Protein Total Protein Albumin Arterial Blood Glucose Coronavirus (PCR) 04/25/21 04/25/21 04/25/21 07:06 11:23 15:43 WBC MCHC RDW Lymph % (Auto) Lymph # (Auto) Baso # (Auto) Seg Neutrophils % Seg Neuts % (Manual) Lymphocytes % (Manual) Seg Neutrophils # Seg Neutrophils # Man Lymphocytes # (Manual) D-Dimer ABG pH POC ABG pO2 ABG pO2 ABG HCO3 ABG O2 Saturation ABG Base Excess ABG Oxyhemoglobin ABG Sodium ABG Chloride ABG Glucose Oxyhemoglobin Carboxyhemoglobin Sodium Potassium Chloride Carbon Dioxide BUN Creatinine Glucose POC Glucose 147 H 169 H 227 H Hemoglobin A1c Ferritin AST ALT Alkaline Phosphatase Lactate Dehydrogenase C-Reactive Protein Total Protein Albumin Arterial Blood Glucose Coronavirus (PCR) 04/25/21 04/26/21 04/26/21 21:22 02:45 05:15 WBC MCHC RDW Lymph % (Auto) Lymph # (Auto) Baso # (Auto) Seg Neutrophils % Seg Neuts % (Manual) Lymphocytes % (Manual) Seg Neutrophils # Seg Neutrophils # Man Lymphocytes # (Manual) D-Dimer ABG pH POC ABG pO2 70.7 L ABG pO2 ABG HCO3 ABG O2 Saturation ABG Base Excess ABG Oxyhemoglobin 93.0 L ABG Sodium 132.7 L ABG Chloride ABG Glucose 115 H Oxyhemoglobin Carboxyhemoglobin Sodium Potassium Chloride 95.8 L Carbon Dioxide 32 H BUN 20 H Creatinine Glucose 102 H POC Glucose 196 H Hemoglobin A1c Ferritin AST ALT Alkaline Phosphatase Lactate Dehydrogenase C-Reactive Protein Total Protein Albumin Arterial Blood Glucose 115 H Coronavirus (PCR) 04/26/21 04/26/21 04/26/21 11:49 16:09 21:07 WBC MCHC RDW Lymph % (Auto) Lymph # (Auto) Baso # (Auto) Seg Neutrophils % Seg Neuts % (Manual) Lymphocytes % (Manual) Seg Neutrophils # Seg Neutrophils # Man Lymphocytes # (Manual) D-Dimer ABG pH POC ABG pO2 ABG pO2 ABG HCO3 ABG O2 Saturation ABG Base Excess ABG Oxyhemoglobin ABG Sodium ABG Chloride ABG Glucose Oxyhemoglobin Carboxyhemoglobin Sodium Potassium Chloride Carbon Dioxide BUN Creatinine Glucose POC Glucose 114 H 188 H 136 H Hemoglobin A1c Ferritin AST ALT Alkaline Phosphatase Lactate Dehydrogenase C-Reactive Protein Total Protein Albumin Arterial Blood Glucose Coronavirus (PCR) 04/27/21 04/27/21 04/28/21 17:34 22:12 08:26 WBC MCHC RDW Lymph % (Auto) Lymph # (Auto) Baso # (Auto) Seg Neutrophils % Seg Neuts % (Manual) Lymphocytes % (Manual) Seg Neutrophils # Seg Neutrophils # Man Lymphocytes # (Manual) D-Dimer ABG pH POC ABG pO2 ABG pO2 ABG HCO3 ABG O2 Saturation ABG Base Excess ABG Oxyhemoglobin ABG Sodium ABG Chloride ABG Glucose Oxyhemoglobin Carboxyhemoglobin Sodium Potassium Chloride Carbon Dioxide BUN Creatinine Glucose POC Glucose 128 H 159 H 69 L Hemoglobin A1c Ferritin AST ALT Alkaline Phosphatase Lactate Dehydrogenase C-Reactive Protein Total Protein Albumin Arterial Blood Glucose Coronavirus (PCR) 04/28/21 04/28/21 04/29/21 12:22 21:11 06:05 WBC MCHC RDW Lymph % (Auto) Lymph # (Auto) Baso # (Auto) Seg Neutrophils % Seg Neuts % (Manual) Lymphocytes % (Manual) Seg Neutrophils # Seg Neutrophils # Man Lymphocytes # (Manual) D-Dimer ABG pH POC ABG pO2 ABG pO2 ABG HCO3 ABG O2 Saturation ABG Base Excess ABG Oxyhemoglobin ABG Sodium ABG Chloride ABG Glucose Oxyhemoglobin Carboxyhemoglobin Sodium 132 L Potassium Chloride 94.4 L Carbon Dioxide BUN Creatinine 0.2 L D Glucose 140 H POC Glucose 141 H 171 H Hemoglobin A1c Ferritin AST ALT Alkaline Phosphatase Lactate Dehydrogenase C-Reactive Protein Total Protein Albumin Arterial Blood Glucose Coronavirus (PCR) 04/29/21 04/29/21 04/29/21 06:05 07:24 11:36 WBC MCHC 35 H RDW 15.9 H Lymph % (Auto) Lymph # (Auto) Baso # (Auto) Seg Neutrophils % Seg Neuts % (Manual) Lymphocytes % (Manual) Seg Neutrophils # Seg Neutrophils # Man Lymphocytes # (Manual) D-Dimer ABG pH POC ABG pO2 ABG pO2 ABG HCO3 ABG O2 Saturation ABG Base Excess ABG Oxyhemoglobin ABG Sodium ABG Chloride ABG Glucose Oxyhemoglobin Carboxyhemoglobin Sodium Potassium Chloride Carbon Dioxide BUN Creatinine Glucose POC Glucose 141 H 220 H Hemoglobin A1c Ferritin AST ALT Alkaline Phosphatase Lactate Dehydrogenase C-Reactive Protein Total Protein Albumin Arterial Blood Glucose Coronavirus (PCR) 04/29/21 04/29/21 04/29/21 14:23 15:30 17:06 WBC MCHC RDW Lymph % (Auto) Lymph # (Auto) Baso # (Auto) Seg Neutrophils % Seg Neuts % (Manual) Lymphocytes % (Manual) Seg Neutrophils # Seg Neutrophils # Man Lymphocytes # (Manual) D-Dimer ABG pH POC ABG pO2 ABG pO2 52.6 L ABG HCO3 ABG O2 Saturation 86.4 L ABG Base Excess ABG Oxyhemoglobin ABG Sodium ABG Chloride ABG Glucose Oxyhemoglobin 84.6 L Carboxyhemoglobin Sodium Potassium Chloride Carbon Dioxide BUN Creatinine Glucose POC Glucose 173 H 158 H Hemoglobin A1c Ferritin AST ALT Alkaline Phosphatase Lactate Dehydrogenase C-Reactive Protein Total Protein Albumin Arterial Blood Glucose Coronavirus (PCR) 04/29/21 04/30/21 04/30/21 21:27 07:16 08:00 WBC MCHC RDW 16.1 H Lymph % (Auto) Lymph # (Auto) Baso # (Auto) Seg Neutrophils % Seg Neuts % (Manual) Lymphocytes % (Manual) Seg Neutrophils # Seg Neutrophils # Man Lymphocytes # (Manual) D-Dimer ABG pH POC ABG pO2 ABG pO2 ABG HCO3 ABG O2 Saturation ABG Base Excess ABG Oxyhemoglobin ABG Sodium ABG Chloride ABG Glucose Oxyhemoglobin Carboxyhemoglobin Sodium Potassium Chloride Carbon Dioxide BUN Creatinine Glucose POC Glucose 244 H 175 H Hemoglobin A1c Ferritin AST ALT Alkaline Phosphatase Lactate Dehydrogenase C-Reactive Protein Total Protein Albumin Arterial Blood Glucose Coronavirus (PCR) 04/30/21 04/30/21 04/30/21 08:00 08:00 11:03 WBC MCHC RDW Lymph % (Auto) Lymph # (Auto) Baso # (Auto) Seg Neutrophils % Seg Neuts % (Manual) Lymphocytes % (Manual) Seg Neutrophils # Seg Neutrophils # Man Lymphocytes # (Manual) D-Dimer 1796.87 H ABG pH POC ABG pO2 ABG pO2 ABG HCO3 ABG O2 Saturation ABG Base Excess ABG Oxyhemoglobin ABG Sodium ABG Chloride ABG Glucose Oxyhemoglobin Carboxyhemoglobin Sodium 135 L Potassium Chloride 96.3 L Carbon Dioxide BUN Creatinine 0.2 L Glucose 153 H POC Glucose 183 H Hemoglobin A1c Ferritin AST 41 H ALT 76 H Alkaline Phosphatase 160 H Lactate Dehydrogenase 522 H C-Reactive Protein Total Protein 6.1 L Albumin 3.1 L Arterial Blood Glucose Coronavirus (PCR) 04/30/21 04/30/21 05/01/21 17:04 22:17 05:39 WBC MCHC RDW Lymph % (Auto) Lymph # (Auto) Baso # (Auto) Seg Neutrophils % Seg Neuts % (Manual) Lymphocytes % (Manual) Seg Neutrophils # Seg Neutrophils # Man Lymphocytes # (Manual) D-Dimer ABG pH POC ABG pO2 ABG pO2 ABG HCO3 ABG O2 Saturation ABG Base Excess ABG Oxyhemoglobin ABG Sodium ABG Chloride ABG Glucose Oxyhemoglobin Carboxyhemoglobin Sodium 133 L Potassium Chloride 92.1 L Carbon Dioxide BUN 24 H Creatinine 0.4 L D Glucose 269 H POC Glucose 167 H 208 H Hemoglobin A1c Ferritin AST ALT 66 H Alkaline Phosphatase 142 H Lactate Dehydrogenase C-Reactive Protein Total Protein Albumin 3.2 L Arterial Blood Glucose Coronavirus (PCR) 05/01/21 05/01/21 05/01/21 05:39 05:39 07:45 WBC MCHC RDW 16.0 H Lymph % (Auto) Lymph # (Auto) Baso # (Auto) Seg Neutrophils % Seg Neuts % (Manual) Lymphocytes % (Manual) Seg Neutrophils # Seg Neutrophils # Man Lymphocytes # (Manual) D-Dimer 3984.95 H ABG pH POC ABG pO2 ABG pO2 ABG HCO3 ABG O2 Saturation ABG Base Excess ABG Oxyhemoglobin ABG Sodium ABG Chloride ABG Glucose Oxyhemoglobin Carboxyhemoglobin Sodium Potassium Chloride Carbon Dioxide BUN Creatinine Glucose POC Glucose 229 H Hemoglobin A1c Ferritin AST ALT Alkaline Phosphatase Lactate Dehydrogenase C-Reactive Protein Total Protein Albumin Arterial Blood Glucose Coronavirus (PCR) 05/01/21 05/01/21 05/01/21 12:10 15:46 21:06 WBC MCHC RDW Lymph % (Auto) Lymph # (Auto) Baso # (Auto) Seg Neutrophils % Seg Neuts % (Manual) Lymphocytes % (Manual) Seg Neutrophils # Seg Neutrophils # Man Lymphocytes # (Manual) D-Dimer ABG pH POC ABG pO2 ABG pO2 ABG HCO3 ABG O2 Saturation ABG Base Excess ABG Oxyhemoglobin ABG Sodium ABG Chloride ABG Glucose Oxyhemoglobin Carboxyhemoglobin Sodium Potassium Chloride Carbon Dioxide BUN Creatinine Glucose POC Glucose 296 H 279 H 232 H Hemoglobin A1c Ferritin AST ALT Alkaline Phosphatase Lactate Dehydrogenase C-Reactive Protein Total Protein Albumin Arterial Blood Glucose Coronavirus (PCR) 05/02/21 05/02/21 05/02/21 04:55 04:55 04:55 WBC MCHC RDW 16.1 H Lymph % (Auto) Lymph # (Auto) Baso # (Auto) Seg Neutrophils % Seg Neuts % (Manual) Lymphocytes % (Manual) Seg Neutrophils # Seg Neutrophils # Man Lymphocytes # (Manual) D-Dimer 1401.08 H ABG pH POC ABG pO2 ABG pO2 ABG HCO3 ABG O2 Saturation ABG Base Excess ABG Oxyhemoglobin ABG Sodium ABG Chloride ABG Glucose Oxyhemoglobin Carboxyhemoglobin Sodium 131 L Potassium Chloride 95.5 L Carbon Dioxide BUN 20 H Creatinine 0.3 L Glucose 288 H POC Glucose Hemoglobin A1c Ferritin AST ALT Alkaline Phosphatase Lactate Dehydrogenase C-Reactive Protein Total Protein 6.0 L Albumin 3.1 L Arterial Blood Glucose Coronavirus (PCR) 05/02/21 05/02/21 05/02/21 07:53 11:45 15:25 WBC MCHC RDW Lymph % (Auto) Lymph # (Auto) Baso # (Auto) Seg Neutrophils % Seg Neuts % (Manual) Lymphocytes % (Manual) Seg Neutrophils # Seg Neutrophils # Man Lymphocytes # (Manual) D-Dimer ABG pH POC ABG pO2 ABG pO2 ABG HCO3 ABG O2 Saturation ABG Base Excess ABG Oxyhemoglobin ABG Sodium ABG Chloride ABG Glucose Oxyhemoglobin Carboxyhemoglobin Sodium Potassium Chloride Carbon Dioxide BUN Creatinine Glucose POC Glucose 180 H 228 H 275 H Hemoglobin A1c Ferritin AST ALT Alkaline Phosphatase Lactate Dehydrogenase C-Reactive Protein Total Protein Albumin Arterial Blood Glucose Coronavirus (PCR) 05/02/21 05/03/21 05/03/21 22:56 04:30 04:49 WBC MCHC RDW Lymph % (Auto) Lymph # (Auto) Baso # (Auto) Seg Neutrophils % Seg Neuts % (Manual) Lymphocytes % (Manual) Seg Neutrophils # Seg Neutrophils # Man Lymphocytes # (Manual) D-Dimer ABG pH 7.229 L POC ABG pO2 65.3 L ABG pO2 ABG HCO3 ABG O2 Saturation ABG Base Excess ABG Oxyhemoglobin 87.8 L ABG Sodium 133.0 L ABG Chloride 97.0 L ABG Glucose 403 H Oxyhemoglobin Carboxyhemoglobin Sodium 130 L Potassium Chloride 94.9 L Carbon Dioxide BUN 20 H Creatinine 0.5 L D Glucose 359 H POC Glucose 293 H Hemoglobin A1c Ferritin AST 54 H ALT 75 H Alkaline Phosphatase 138 H Lactate Dehydrogenase C-Reactive Protein Total Protein Albumin 3.6 L Arterial Blood Glucose 403 H Coronavirus (PCR) 05/03/21 05/03/21 05/03/21 05:27 11:26 17:57 WBC MCHC RDW Lymph % (Auto) Lymph # (Auto) Baso # (Auto) Seg Neutrophils % Seg Neuts % (Manual) Lymphocytes % (Manual) Seg Neutrophils # Seg Neutrophils # Man Lymphocytes # (Manual) D-Dimer ABG pH POC ABG pO2 ABG pO2 ABG HCO3 ABG O2 Saturation ABG Base Excess ABG Oxyhemoglobin ABG Sodium ABG Chloride ABG Glucose Oxyhemoglobin Carboxyhemoglobin Sodium Potassium Chloride Carbon Dioxide BUN Creatinine Glucose POC Glucose 361 H 297 H 226 H Hemoglobin A1c Ferritin AST ALT Alkaline Phosphatase Lactate Dehydrogenase C-Reactive Protein Total Protein Albumin Arterial Blood Glucose Coronavirus (PCR) 05/03/21 05/04/21 05/04/21 23:12 05:12 07:30 WBC MCHC RDW Lymph % (Auto) Lymph # (Auto) Baso # (Auto) Seg Neutrophils % Seg Neuts % (Manual) Lymphocytes % (Manual) Seg Neutrophils # Seg Neutrophils # Man Lymphocytes # (Manual) D-Dimer ABG pH POC ABG pO2 ABG pO2 ABG HCO3 ABG O2 Saturation ABG Base Excess ABG Oxyhemoglobin ABG Sodium ABG Chloride ABG Glucose Oxyhemoglobin Carboxyhemoglobin Sodium Potassium Chloride Carbon Dioxide BUN Creatinine Glucose POC Glucose 282 H 285 H 254 H Hemoglobin A1c Ferritin AST ALT Alkaline Phosphatase Lactate Dehydrogenase C-Reactive Protein Total Protein Albumin Arterial Blood Glucose Coronavirus (PCR) 05/04/21 05/04/21 05/04/21 08:58 11:45 16:07 WBC MCHC RDW Lymph % (Auto) Lymph # (Auto) Baso # (Auto) Seg Neutrophils % Seg Neuts % (Manual) Lymphocytes % (Manual) Seg Neutrophils # Seg Neutrophils # Man Lymphocytes # (Manual) D-Dimer ABG pH POC ABG pO2 ABG pO2 ABG HCO3 ABG O2 Saturation ABG Base Excess ABG Oxyhemoglobin ABG Sodium ABG Chloride ABG Glucose Oxyhemoglobin Carboxyhemoglobin Sodium 134 L Potassium Chloride Carbon Dioxide BUN 20 H Creatinine 0.3 L Glucose 267 H POC Glucose 244 H 297 H Hemoglobin A1c Ferritin AST ALT Alkaline Phosphatase Lactate Dehydrogenase C-Reactive Protein Total Protein 6.0 L Albumin 3.2 L Arterial Blood Glucose Coronavirus (PCR) 05/04/21 05/05/21 05/05/21 23:32 05:00 05:13 WBC MCHC RDW Lymph % (Auto) Lymph # (Auto) Baso # (Auto) Seg Neutrophils % Seg Neuts % (Manual) Lymphocytes % (Manual) Seg Neutrophils # Seg Neutrophils # Man Lymphocytes # (Manual) D-Dimer ABG pH POC ABG pO2 ABG pO2 ABG HCO3 ABG O2 Saturation ABG Base Excess ABG Oxyhemoglobin ABG Sodium ABG Chloride ABG Glucose Oxyhemoglobin Carboxyhemoglobin Sodium 132 L Potassium Chloride 96.4 L Carbon Dioxide BUN 22 H Creatinine 0.3 L Glucose 228 H POC Glucose 154 H 260 H Hemoglobin A1c Ferritin AST ALT 67 H Alkaline Phosphatase Lactate Dehydrogenase C-Reactive Protein Total Protein 6.1 L Albumin 3.2 L Arterial Blood Glucose Coronavirus (PCR) 05/05/21 05/05/21 05/05/21 11:32 17:49 23:07 WBC MCHC RDW Lymph % (Auto) Lymph # (Auto) Baso # (Auto) Seg Neutrophils % Seg Neuts % (Manual) Lymphocytes % (Manual) Seg Neutrophils # Seg Neutrophils # Man Lymphocytes # (Manual) D-Dimer ABG pH POC ABG pO2 ABG pO2 ABG HCO3 ABG O2 Saturation ABG Base Excess ABG Oxyhemoglobin ABG Sodium ABG Chloride ABG Glucose Oxyhemoglobin Carboxyhemoglobin Sodium Potassium Chloride Carbon Dioxide BUN Creatinine Glucose POC Glucose 279 H 308 H 213 H Hemoglobin A1c Ferritin AST ALT Alkaline Phosphatase Lactate Dehydrogenase C-Reactive Protein Total Protein Albumin Arterial Blood Glucose Coronavirus (PCR) 05/06/21 05/06/21 05/06/21 05:00 05:00 05:20 WBC MCHC RDW 16.8 H Lymph % (Auto) Lymph # (Auto) Baso # (Auto) Seg Neutrophils % Seg Neuts % (Manual) 99.0 H Lymphocytes % (Manual) Seg Neutrophils # Seg Neutrophils # Man 10.9 H Lymphocytes # (Manual) 0.0 L D-Dimer ABG pH POC ABG pO2 ABG pO2 ABG HCO3 ABG O2 Saturation ABG Base Excess ABG Oxyhemoglobin ABG Sodium ABG Chloride ABG Glucose Oxyhemoglobin Carboxyhemoglobin Sodium 133 L Potassium Chloride Carbon Dioxide BUN 21 H Creatinine 0.3 L Glucose 259 H POC Glucose 308 H Hemoglobin A1c Ferritin AST ALT Alkaline Phosphatase Lactate Dehydrogenase C-Reactive Protein Total Protein Albumin 3.2 L Arterial Blood Glucose Coronavirus (PCR) 05/06/21 05/06/21 05/06/21 11:24 17:54 21:32 WBC MCHC RDW Lymph % (Auto) Lymph # (Auto) Baso # (Auto) Seg Neutrophils % Seg Neuts % (Manual) Lymphocytes % (Manual) Seg Neutrophils # Seg Neutrophils # Man Lymphocytes # (Manual) D-Dimer ABG pH POC ABG pO2 ABG pO2 ABG HCO3 ABG O2 Saturation ABG Base Excess ABG Oxyhemoglobin ABG Sodium ABG Chloride ABG Glucose Oxyhemoglobin Carboxyhemoglobin Sodium Potassium Chloride Carbon Dioxide BUN Creatinine Glucose POC Glucose 262 H 124 H 246 H Hemoglobin A1c Ferritin AST ALT Alkaline Phosphatase Lactate Dehydrogenase C-Reactive Protein Total Protein Albumin Arterial Blood Glucose Coronavirus (PCR) 05/06/21 05/07/21 05/07/21 23:10 04:54 04:54 WBC MCHC RDW Lymph % (Auto) Lymph # (Auto) Baso # (Auto) Seg Neutrophils % Seg Neuts % (Manual) Lymphocytes % (Manual) Seg Neutrophils # Seg Neutrophils # Man Lymphocytes # (Manual) D-Dimer 1609.28 H ABG pH POC ABG pO2 ABG pO2 ABG HCO3 ABG O2 Saturation ABG Base Excess ABG Oxyhemoglobin ABG Sodium ABG Chloride ABG Glucose Oxyhemoglobin Carboxyhemoglobin Sodium 136 L Potassium Chloride Carbon Dioxide BUN 23 H Creatinine 0.3 L Glucose 110 H POC Glucose 249 H Hemoglobin A1c Ferritin AST ALT Alkaline Phosphatase Lactate Dehydrogenase C-Reactive Protein Total Protein 6.2 L Albumin 3.0 L Arterial Blood Glucose Coronavirus (PCR) 05/07/21 05/07/21 05/07/21 04:54 04:54 11:41 WBC MCHC RDW Lymph % (Auto) Lymph # (Auto) Baso # (Auto) Seg Neutrophils % Seg Neuts % (Manual) Lymphocytes % (Manual) Seg Neutrophils # Seg Neutrophils # Man Lymphocytes # (Manual) D-Dimer ABG pH POC ABG pO2 ABG pO2 ABG HCO3 ABG O2 Saturation ABG Base Excess ABG Oxyhemoglobin ABG Sodium ABG Chloride ABG Glucose Oxyhemoglobin Carboxyhemoglobin Sodium Potassium Chloride Carbon Dioxide BUN Creatinine Glucose POC Glucose 118 H Hemoglobin A1c Ferritin 296.1 H AST ALT Alkaline Phosphatase Lactate Dehydrogenase 724 H C-Reactive Protein Total Protein Albumin Arterial Blood Glucose Coronavirus (PCR) 05/07/21 05/07/21 05/08/21 16:43 22:34 06:44 WBC MCHC RDW Lymph % (Auto) Lymph # (Auto) Baso # (Auto) Seg Neutrophils % Seg Neuts % (Manual) Lymphocytes % (Manual) Seg Neutrophils # Seg Neutrophils # Man Lymphocytes # (Manual) D-Dimer ABG pH POC ABG pO2 ABG pO2 ABG HCO3 ABG O2 Saturation ABG Base Excess ABG Oxyhemoglobin ABG Sodium ABG Chloride ABG Glucose Oxyhemoglobin Carboxyhemoglobin Sodium Potassium Chloride Carbon Dioxide BUN Creatinine Glucose POC Glucose 159 H 233 H 235 H Hemoglobin A1c Ferritin AST ALT Alkaline Phosphatase Lactate Dehydrogenase C-Reactive Protein Total Protein Albumin Arterial Blood Glucose Coronavirus (PCR) 05/08/21 05/08/21 05/08/21 07:49 11:56 17:13 WBC MCHC RDW Lymph % (Auto) Lymph # (Auto) Baso # (Auto) Seg Neutrophils % Seg Neuts % (Manual) Lymphocytes % (Manual) Seg Neutrophils # Seg Neutrophils # Man Lymphocytes # (Manual) D-Dimer ABG pH POC ABG pO2 ABG pO2 ABG HCO3 ABG O2 Saturation ABG Base Excess ABG Oxyhemoglobin ABG Sodium ABG Chloride ABG Glucose Oxyhemoglobin Carboxyhemoglobin Sodium Potassium Chloride Carbon Dioxide BUN Creatinine Glucose POC Glucose 219 H 184 H 182 H Hemoglobin A1c Ferritin AST ALT Alkaline Phosphatase Lactate Dehydrogenase C-Reactive Protein Total Protein Albumin Arterial Blood Glucose Coronavirus (PCR) 05/08/21 05/09/21 05/09/21 23:35 05:20 05:20 WBC MCHC RDW Lymph % (Auto) Lymph # (Auto) Baso # (Auto) Seg Neutrophils % Seg Neuts % (Manual) Lymphocytes % (Manual) Seg Neutrophils # Seg Neutrophils # Man Lymphocytes # (Manual) D-Dimer 1003.87 H ABG pH POC ABG pO2 ABG pO2 ABG HCO3 ABG O2 Saturation ABG Base Excess ABG Oxyhemoglobin ABG Sodium ABG Chloride ABG Glucose Oxyhemoglobin Carboxyhemoglobin Sodium Potassium Chloride Carbon Dioxide BUN Creatinine Glucose POC Glucose 198 H Hemoglobin A1c Ferritin 378.7 H AST ALT Alkaline Phosphatase Lactate Dehydrogenase C-Reactive Protein Total Protein Albumin Arterial Blood Glucose Coronavirus (PCR) 05/09/21 05/09/21 05/09/21 05:20 06:04 12:53 WBC MCHC RDW Lymph % (Auto) Lymph # (Auto) Baso # (Auto) Seg Neutrophils % Seg Neuts % (Manual) Lymphocytes % (Manual) Seg Neutrophils # Seg Neutrophils # Man Lymphocytes # (Manual) D-Dimer ABG pH POC ABG pO2 ABG pO2 ABG HCO3 ABG O2 Saturation ABG Base Excess ABG Oxyhemoglobin ABG Sodium ABG Chloride ABG Glucose Oxyhemoglobin Carboxyhemoglobin Sodium Potassium Chloride Carbon Dioxide BUN Creatinine Glucose POC Glucose 159 H 180 H Hemoglobin A1c Ferritin AST ALT Alkaline Phosphatase Lactate Dehydrogenase 558 H C-Reactive Protein 2.40 H Total Protein Albumin Arterial Blood Glucose Coronavirus (PCR) 05/09/21 05/09/21 05/10/21 16:43 21:27 10:18 WBC MCHC RDW Lymph % (Auto) Lymph # (Auto) Baso # (Auto) Seg Neutrophils % Seg Neuts % (Manual) Lymphocytes % (Manual) Seg Neutrophils # Seg Neutrophils # Man Lymphocytes # (Manual) D-Dimer ABG pH POC ABG pO2 ABG pO2 ABG HCO3 ABG O2 Saturation ABG Base Excess ABG Oxyhemoglobin ABG Sodium ABG Chloride ABG Glucose Oxyhemoglobin Carboxyhemoglobin Sodium Potassium Chloride Carbon Dioxide BUN Creatinine Glucose POC Glucose 212 H 285 H 261 H Hemoglobin A1c Ferritin AST ALT Alkaline Phosphatase Lactate Dehydrogenase C-Reactive Protein Total Protein Albumin Arterial Blood Glucose Coronavirus (PCR) 05/10/21 05/10/21 05/11/21 17:58 18:02 00:29 WBC MCHC RDW Lymph % (Auto) Lymph # (Auto) Baso # (Auto) Seg Neutrophils % Seg Neuts % (Manual) Lymphocytes % (Manual) Seg Neutrophils # Seg Neutrophils # Man Lymphocytes # (Manual) D-Dimer ABG pH POC ABG pO2 ABG pO2 ABG HCO3 ABG O2 Saturation ABG Base Excess ABG Oxyhemoglobin ABG Sodium ABG Chloride ABG Glucose Oxyhemoglobin Carboxyhemoglobin Sodium Potassium Chloride Carbon Dioxide BUN Creatinine Glucose POC Glucose 213 H 179 H 149 H Hemoglobin A1c Ferritin AST ALT Alkaline Phosphatase Lactate Dehydrogenase C-Reactive Protein Total Protein Albumin Arterial Blood Glucose Coronavirus (PCR) 05/11/21 05/11/21 05/11/21 05:22 11:32 17:00 WBC 14.9 H MCHC RDW 18.9 H Lymph % (Auto) 4.9 L Lymph # (Auto) 0.7 L Baso # (Auto) 0.2 H Seg Neutrophils % Seg Neuts % (Manual) Lymphocytes % (Manual) Seg Neutrophils # 13.3 H Seg Neutrophils # Man Lymphocytes # (Manual) D-Dimer ABG pH POC ABG pO2 ABG pO2 ABG HCO3 ABG O2 Saturation ABG Base Excess ABG Oxyhemoglobin ABG Sodium ABG Chloride ABG Glucose Oxyhemoglobin Carboxyhemoglobin Sodium Potassium Chloride Carbon Dioxide BUN Creatinine Glucose POC Glucose 162 H 179 H Hemoglobin A1c Ferritin AST ALT Alkaline Phosphatase Lactate Dehydrogenase C-Reactive Protein Total Protein Albumin Arterial Blood Glucose Coronavirus (PCR) 05/11/21 05/11/21 05/11/21 17:00 17:33 22:03 WBC MCHC RDW Lymph % (Auto) Lymph # (Auto) Baso # (Auto) Seg Neutrophils % Seg Neuts % (Manual) Lymphocytes % (Manual) Seg Neutrophils # Seg Neutrophils # Man Lymphocytes # (Manual) D-Dimer ABG pH POC ABG pO2 ABG pO2 ABG HCO3 ABG O2 Saturation ABG Base Excess ABG Oxyhemoglobin ABG Sodium ABG Chloride ABG Glucose Oxyhemoglobin Carboxyhemoglobin Sodium 135 L Potassium Chloride 97.3 L Carbon Dioxide BUN 21 H Creatinine 0.3 L Glucose 133 H POC Glucose 140 H 282 H Hemoglobin A1c Ferritin AST ALT 60 H Alkaline Phosphatase Lactate Dehydrogenase C-Reactive Protein Total Protein Albumin 3.1 L Arterial Blood Glucose Coronavirus (PCR) 05/12/21 05/12/21 05/12/21 04:05 04:05 04:05 WBC MCHC RDW 18.4 H Lymph % (Auto) Lymph # (Auto) Baso # (Auto) Seg Neutrophils % Seg Neuts % (Manual) 94.0 H Lymphocytes % (Manual) 4.0 L Seg Neutrophils # Seg Neutrophils # Man Lymphocytes # (Manual) 0.3 L D-Dimer ABG pH POC ABG pO2 ABG pO2 ABG HCO3 ABG O2 Saturation ABG Base Excess ABG Oxyhemoglobin ABG Sodium ABG Chloride ABG Glucose Oxyhemoglobin Carboxyhemoglobin Sodium 136 L Potassium Chloride Carbon Dioxide BUN 18 H Creatinine 0.2 L Glucose 142 H POC Glucose Hemoglobin A1c Ferritin 350.7 H AST ALT Alkaline Phosphatase Lactate Dehydrogenase 546 H C-Reactive Protein Total Protein 6.1 L Albumin 3.0 L Arterial Blood Glucose Coronavirus (PCR) 05/12/21 05/12/21 05/12/21 05:11 11:17 16:27 WBC MCHC RDW Lymph % (Auto) Lymph # (Auto) Baso # (Auto) Seg Neutrophils % Seg Neuts % (Manual) Lymphocytes % (Manual) Seg Neutrophils # Seg Neutrophils # Man Lymphocytes # (Manual) D-Dimer ABG pH POC ABG pO2 ABG pO2 ABG HCO3 ABG O2 Saturation ABG Base Excess ABG Oxyhemoglobin ABG Sodium ABG Chloride ABG Glucose Oxyhemoglobin Carboxyhemoglobin Sodium Potassium Chloride Carbon Dioxide BUN Creatinine Glucose POC Glucose 152 H 190 H 261 H Hemoglobin A1c Ferritin AST ALT Alkaline Phosphatase Lactate Dehydrogenase C-Reactive Protein Total Protein Albumin Arterial Blood Glucose Coronavirus (PCR) 05/12/21 05/13/21 05/13/21 20:55 11:08 21:41 WBC MCHC RDW Lymph % (Auto) Lymph # (Auto) Baso # (Auto) Seg Neutrophils % Seg Neuts % (Manual) Lymphocytes % (Manual) Seg Neutrophils # Seg Neutrophils # Man Lymphocytes # (Manual) D-Dimer ABG pH POC ABG pO2 ABG pO2 ABG HCO3 ABG O2 Saturation ABG Base Excess ABG Oxyhemoglobin ABG Sodium ABG Chloride ABG Glucose Oxyhemoglobin Carboxyhemoglobin Sodium Potassium Chloride Carbon Dioxide BUN Creatinine Glucose POC Glucose 231 H 106 H 174 H Hemoglobin A1c Ferritin AST ALT Alkaline Phosphatase Lactate Dehydrogenase C-Reactive Protein Total Protein Albumin Arterial Blood Glucose Coronavirus (PCR) 05/14/21 05/14/21 05/14/21 00:53 02:23 06:06 WBC MCHC RDW Lymph % (Auto) Lymph # (Auto) Baso # (Auto) Seg Neutrophils % Seg Neuts % (Manual) Lymphocytes % (Manual) Seg Neutrophils # Seg Neutrophils # Man Lymphocytes # (Manual) D-Dimer ABG pH POC ABG pO2 ABG pO2 130.3 H ABG HCO3 30.6 H ABG O2 Saturation ABG Base Excess 4.9 H ABG Oxyhemoglobin ABG Sodium ABG Chloride ABG Glucose Oxyhemoglobin Carboxyhemoglobin Sodium Potassium Chloride Carbon Dioxide BUN Creatinine Glucose POC Glucose 229 H 119 H Hemoglobin A1c Ferritin AST ALT Alkaline Phosphatase Lactate Dehydrogenase C-Reactive Protein Total Protein Albumin Arterial Blood Glucose Coronavirus (PCR) 05/14/21 05/14/21 05/14/21 07:13 07:13 07:13 WBC MCHC RDW Lymph % (Auto) Lymph # (Auto) Baso # (Auto) Seg Neutrophils % Seg Neuts % (Manual) Lymphocytes % (Manual) Seg Neutrophils # Seg Neutrophils # Man Lymphocytes # (Manual) D-Dimer 712.80 H ABG pH POC ABG pO2 ABG pO2 ABG HCO3 ABG O2 Saturation ABG Base Excess ABG Oxyhemoglobin ABG Sodium ABG Chloride ABG Glucose Oxyhemoglobin Carboxyhemoglobin Sodium 133 L Potassium Chloride 95.5 L Carbon Dioxide 32 H BUN Creatinine 0.2 L Glucose 137 H POC Glucose Hemoglobin A1c Ferritin 283.5 H AST ALT 63 H Alkaline Phosphatase Lactate Dehydrogenase 563 H C-Reactive Protein Total Protein 6.1 L Albumin 3.0 L Arterial Blood Glucose Coronavirus (PCR) 05/14/21 05/14/21 05/14/21 12:21 15:33 21:50 WBC MCHC RDW Lymph % (Auto) Lymph # (Auto) Baso # (Auto) Seg Neutrophils % Seg Neuts % (Manual) Lymphocytes % (Manual) Seg Neutrophils # Seg Neutrophils # Man Lymphocytes # (Manual) D-Dimer ABG pH POC ABG pO2 ABG pO2 ABG HCO3 ABG O2 Saturation ABG Base Excess ABG Oxyhemoglobin ABG Sodium ABG Chloride ABG Glucose Oxyhemoglobin Carboxyhemoglobin Sodium Potassium Chloride Carbon Dioxide BUN Creatinine Glucose POC Glucose 143 H 204 H 202 H Hemoglobin A1c Ferritin AST ALT Alkaline Phosphatase Lactate Dehydrogenase C-Reactive Protein Total Protein Albumin Arterial Blood Glucose Coronavirus (PCR) 05/15/21 05/15/21 05/15/21 05:05 11:12 16:39 WBC MCHC RDW Lymph % (Auto) Lymph # (Auto) Baso # (Auto) Seg Neutrophils % Seg Neuts % (Manual) Lymphocytes % (Manual) Seg Neutrophils # Seg Neutrophils # Man Lymphocytes # (Manual) D-Dimer ABG pH POC ABG pO2 ABG pO2 ABG HCO3 ABG O2 Saturation ABG Base Excess ABG Oxyhemoglobin ABG Sodium ABG Chloride ABG Glucose Oxyhemoglobin Carboxyhemoglobin Sodium Potassium Chloride Carbon Dioxide BUN Creatinine Glucose POC Glucose 125 H 201 H 241 H Hemoglobin A1c Ferritin AST ALT Alkaline Phosphatase Lactate Dehydrogenase C-Reactive Protein Total Protein Albumin Arterial Blood Glucose Coronavirus (PCR) 05/15/21 05/16/21 05/16/21 21:31 05:04 10:40 WBC MCHC RDW Lymph % (Auto) Lymph # (Auto) Baso # (Auto) Seg Neutrophils % Seg Neuts % (Manual) Lymphocytes % (Manual) Seg Neutrophils # Seg Neutrophils # Man Lymphocytes # (Manual) D-Dimer ABG pH POC ABG pO2 ABG pO2 ABG HCO3 ABG O2 Saturation ABG Base Excess ABG Oxyhemoglobin ABG Sodium ABG Chloride ABG Glucose Oxyhemoglobin Carboxyhemoglobin Sodium Potassium Chloride Carbon Dioxide BUN Creatinine Glucose POC Glucose 234 H 123 H 231 H Hemoglobin A1c Ferritin AST ALT Alkaline Phosphatase Lactate Dehydrogenase C-Reactive Protein Total Protein Albumin Arterial Blood Glucose Coronavirus (PCR) 05/16/21 05/16/21 05/17/21 18:23 21:29 06:20 WBC MCHC RDW 18.8 H Lymph % (Auto) 10.2 L Lymph # (Auto) 0.8 L Baso # (Auto) Seg Neutrophils % 85.8 H Seg Neuts % (Manual) Lymphocytes % (Manual) Seg Neutrophils # Seg Neutrophils # Man Lymphocytes # (Manual) D-Dimer ABG pH POC ABG pO2 ABG pO2 ABG HCO3 ABG O2 Saturation ABG Base Excess ABG Oxyhemoglobin ABG Sodium ABG Chloride ABG Glucose Oxyhemoglobin Carboxyhemoglobin Sodium Potassium Chloride Carbon Dioxide BUN Creatinine Glucose POC Glucose 266 H 234 H Hemoglobin A1c Ferritin AST ALT Alkaline Phosphatase Lactate Dehydrogenase C-Reactive Protein Total Protein Albumin Arterial Blood Glucose Coronavirus (PCR) 05/17/21 05/17/21 05/17/21 06:20 11:06 16:36 WBC MCHC RDW Lymph % (Auto) Lymph # (Auto) Baso # (Auto) Seg Neutrophils % Seg Neuts % (Manual) Lymphocytes % (Manual) Seg Neutrophils # Seg Neutrophils # Man Lymphocytes # (Manual) D-Dimer ABG pH POC ABG pO2 ABG pO2 ABG HCO3 ABG O2 Saturation ABG Base Excess ABG Oxyhemoglobin ABG Sodium ABG Chloride ABG Glucose Oxyhemoglobin Carboxyhemoglobin Sodium Potassium Chloride Carbon Dioxide 33 H BUN Creatinine 0.2 L Glucose 101 H POC Glucose 209 H 180 H Hemoglobin A1c Ferritin AST ALT Alkaline Phosphatase Lactate Dehydrogenase C-Reactive Protein Total Protein Albumin Arterial Blood Glucose Coronavirus (PCR) 05/17/21 05/18/21 05/18/21 21:06 12:00 15:06 WBC MCHC RDW Lymph % (Auto) Lymph # (Auto) Baso # (Auto) Seg Neutrophils % Seg Neuts % (Manual) Lymphocytes % (Manual) Seg Neutrophils # Seg Neutrophils # Man Lymphocytes # (Manual) D-Dimer 874.02 H ABG pH POC ABG pO2 ABG pO2 ABG HCO3 ABG O2 Saturation ABG Base Excess ABG Oxyhemoglobin ABG Sodium ABG Chloride ABG Glucose Oxyhemoglobin Carboxyhemoglobin Sodium Potassium Chloride Carbon Dioxide BUN Creatinine Glucose POC Glucose 256 H 139 H Hemoglobin A1c Ferritin AST ALT Alkaline Phosphatase Lactate Dehydrogenase C-Reactive Protein Total Protein Albumin Arterial Blood Glucose Coronavirus (PCR) 05/18/21 05/18/21 05/18/21 15:06 15:06 16:08 WBC MCHC RDW Lymph % (Auto) Lymph # (Auto) Baso # (Auto) Seg Neutrophils % Seg Neuts % (Manual) Lymphocytes % (Manual) Seg Neutrophils # Seg Neutrophils # Man Lymphocytes # (Manual) D-Dimer ABG pH POC ABG pO2 ABG pO2 ABG HCO3 ABG O2 Saturation ABG Base Excess ABG Oxyhemoglobin ABG Sodium ABG Chloride ABG Glucose Oxyhemoglobin Carboxyhemoglobin Sodium Potassium Chloride Carbon Dioxide BUN Creatinine Glucose POC Glucose 178 H Hemoglobin A1c Ferritin 289.6 H AST ALT Alkaline Phosphatase Lactate Dehydrogenase 605 H C-Reactive Protein Total Protein Albumin Arterial Blood Glucose Coronavirus (PCR) 05/18/21 05/19/21 05/19/21 21:22 11:57 15:26 WBC MCHC RDW Lymph % (Auto) Lymph # (Auto) Baso # (Auto) Seg Neutrophils % Seg Neuts % (Manual) Lymphocytes % (Manual) Seg Neutrophils # Seg Neutrophils # Man Lymphocytes # (Manual) D-Dimer ABG pH POC ABG pO2 ABG pO2 ABG HCO3 ABG O2 Saturation ABG Base Excess ABG Oxyhemoglobin ABG Sodium ABG Chloride ABG Glucose Oxyhemoglobin Carboxyhemoglobin Sodium Potassium Chloride Carbon Dioxide BUN Creatinine Glucose POC Glucose 241 H 201 H 209 H Hemoglobin A1c Ferritin AST ALT Alkaline Phosphatase Lactate Dehydrogenase C-Reactive Protein Total Protein Albumin Arterial Blood Glucose Coronavirus (PCR) 05/19/21 05/20/21 05/20/21 20:59 07:38 08:01 WBC MCHC RDW 19.7 H Lymph % (Auto) 8.3 L Lymph # (Auto) 0.8 L Baso # (Auto) Seg Neutrophils % 88.6 H Seg Neuts % (Manual) Lymphocytes % (Manual) Seg Neutrophils # 8.4 H Seg Neutrophils # Man Lymphocytes # (Manual) D-Dimer ABG pH POC ABG pO2 ABG pO2 ABG HCO3 ABG O2 Saturation ABG Base Excess ABG Oxyhemoglobin ABG Sodium ABG Chloride ABG Glucose Oxyhemoglobin Carboxyhemoglobin Sodium Potassium Chloride Carbon Dioxide BUN Creatinine Glucose POC Glucose 226 H 130 H Hemoglobin A1c Ferritin AST ALT Alkaline Phosphatase Lactate Dehydrogenase C-Reactive Protein Total Protein Albumin Arterial Blood Glucose Coronavirus (PCR) 05/20/21 05/20/21 05/20/21 08:01 11:00 16:43 WBC MCHC RDW Lymph % (Auto) Lymph # (Auto) Baso # (Auto) Seg Neutrophils % Seg Neuts % (Manual) Lymphocytes % (Manual) Seg Neutrophils # Seg Neutrophils # Man Lymphocytes # (Manual) D-Dimer ABG pH POC ABG pO2 ABG pO2 ABG HCO3 ABG O2 Saturation ABG Base Excess ABG Oxyhemoglobin ABG Sodium ABG Chloride ABG Glucose Oxyhemoglobin Carboxyhemoglobin Sodium Potassium Chloride Carbon Dioxide BUN 18 H Creatinine 0.2 L Glucose 132 H POC Glucose 237 H 240 H Hemoglobin A1c Ferritin AST ALT Alkaline Phosphatase Lactate Dehydrogenase C-Reactive Protein Total Protein Albumin Arterial Blood Glucose Coronavirus (PCR) 05/20/21 05/21/21 21:21 07:35 WBC MCHC RDW Lymph % (Auto) Lymph # (Auto) Baso # (Auto) Seg Neutrophils % Seg Neuts % (Manual) Lymphocytes % (Manual) Seg Neutrophils # Seg Neutrophils # Man Lymphocytes # (Manual) D-Dimer ABG pH POC ABG pO2 ABG pO2 ABG HCO3 ABG O2 Saturation ABG Base Excess ABG Oxyhemoglobin ABG Sodium ABG Chloride ABG Glucose Oxyhemoglobin Carboxyhemoglobin Sodium Potassium Chloride Carbon Dioxide BUN Creatinine Glucose POC Glucose 241 H 162 H Hemoglobin A1c Ferritin AST ALT Alkaline Phosphatase Lactate Dehydrogenase C-Reactive Protein Total Protein Albumin Arterial Blood Glucose Coronavirus (PCR)
[2021-05-21] MEDS: INSULIN LISPRO 100 UNIT/ML SUB-Q SCH ×4 (10:40→23:50)
[2021-05-21] MEDS: DOCUSATE SODIUM 100 MG CAP PO SCH ×3 (10:41→23:50)
[2021-05-21] MEDS: POLYETHYLENE GLYCOL 3350 17 GM POWDER PO SCH ×2 (10:42→11:02)
[2021-05-21] MEDS: FAMOTIDINE 20 MG TAB PO SCH ×2 (10:43→23:49)
[2021-05-21] MEDS: ASCORBIC ACID 500 MG TAB PO SCH (10:43)
[2021-05-21] MEDS: ZINC SULFATE 220 MG CAP PO SCH (10:44)
[2021-05-21] MEDS: CHOLECALCIFEROL (VIT D3) 1000 UNIT (25 mcg) TAB PO SCH (10:44)
[2021-05-21] MEDS: INSULIN GLARGINE 100 UNITS/ML SUB-Q SCH ×2 (10:46→23:51)
--- NOTE | 2021-05-21 16:23 | Progress Note ---
Assessment and Plan 50-year-old female past medical history obesity, GERD, hyperlipidemia brought to the hospital due to shortness of breath, fevers, malaise, typical Covid symptoms for approximate 1 week prior to admission and was progressively worse since on set. She is found to have saturations of 86% on presentation. Afebrile since admission with a white count 7.5. Covid test was positive positive along with normal renal function and normal procalcitonin. Chest x-ray: Bilateral pneumonia. Patient initiated on Covid protocol, ID and pulmonary care following Assessment and plan: --Acute hypoxic resp failure due to covid19 -S/p BiPAP, now discontinued -Currently on high per nasal cannula at flow rate 35 L/min along with nonrebreather -See RT notes for titration -Albuterol as needed -Pulmonary hygiene -Pulmonology following CTA chest ordered, patient could not tolerate --covid19 pna; sepsis; -zinc/vitC/D -methylpred 125 mg every 8; wean as appropriate -Infectious disease consulted, -S/p Actemra and remdesivir -Trend temperature and WBC curve -Follow culture data --Oral candidiasis Nystatin solution ordered. -- hyponatremia -Last 24 hours -125 -Trend BMP -Replace electrolytes as needed -Monitor intake and output -- coagulopathy of covid; on AC -Subcu heparin -Trend CBC -Transfuse for hemoglobin less than 7 -Bilateral lower extremity Doppler ultrasounds negative for DVT ; no CTA or VQ scan to rule out PE -- hyperglycemia; obesity -glargine HS -SSI AC/HS -Avoid hypoglycemia -- risk for protein gisella malnutrition given inc metabolic demand with resp insufficiency -TPN earlier in hospital admission due to BiPAP however now patient is tolerating p.o. -Patient on a GI soft diet with aspiration precautions -Nutrition following -Bowel regimen: Colace, senna, MiraLAX -PPI --Anxiety Likely due to severe hypoxia -Follows commands and RAY -PRN pain and anxiety meds -Patient is Welsh-speaking but understands Y[place] --viral conjunctivitis right eye: -Right eye- s/p 5 d course of cipro drops. suspect viral conjunctivitis. lubricating eye drops. supportive management. --Septic shock -S/p pressors now discontinued -MAP goal 65 -Pressure monitor per protocol --DVT prophylaxis, per hospital protocol Hospital course to date: 04/17: Patient seen and examined, still uncomfortable with Hypoxic respiratory failure and on oxygen, will continue to steroids therapy, start patient on Remdesivir, ID consulted, Pulmonary consult placed. 04/18: Patient seen and examined, she is currently being changed to High flow NC due to worsening HYPOXIA, will transfer to IMCU, Pulmonary and ID following. Will also give a dose of Lasix today. Monitor Inflammatory markers. 04/19: Patient seen and examined still on high flow due to hypoxia. Appears a bit more comfortable today than yesterday. Cough has decreased in frequency. We will continue high dose Dexameathasone to complete 10 days. continue on Remdesivir 200 mg IV q day x 1 followed by 100 mg IV q day x 4 days -Obtain q48-72h inflammatory markers - ferritin, Ddimer, CRP, LDH Will also give lasix daily for the next 3 days and monitor renal function. Family updated. Continue prone positioning as tolerated 04/20: Patient has some desaturation episodes yesterday was placed on BiPAP. Discussed with ICU team for bed availability for patient to be transferred up. Continue prone position as tolerated. 04/21: Patient remains with profound hypoxia secondary to COVID pneumonia. -Continue steroids -Continue remedesir -S/P Actmera 04/22: Patient remains on steroids and remdesivir. ABG shows persistent hypoxia. We will continue current management additional trial of Lasix for the next few days to see if any improvement. Monitor inflammatory markers as needed. Prognosis is guarded remains on high flow 04/23; patient was treated with remdesivir and Actemra. Continue steroid. Patient's prognosis is guarded. 04/24; patient is on steroid. Patient is currently on BiPAP. Prognosis is guarded. Pulmonary is following. Patient was given Lasix and Ativan. 04/25; continue steroid. Patient was on 40 L of high flow oxygen with saturation was 88%. Pulmonary is following. Prognosis is guarded. Patient was given lasix and ativan. 04/26; patient is on BiPAP and Precedex. Prognosis is guarded. 04/27; patient is on BiPAP and Precedex. Patient will finish steroid today and will start on Solu-Medrol tomorrow. Prognosis is guarded. Blood pressure is better today. Hold Lasix. 04/28 patient is on 100 Fio2 via BIPAP. moderately dyspneic, pulmonary note reviewed, lab results reviewed 04/29 no acute events- see systems review above 04/30 no acute events overnight - on airvo today- TPN started -see systems review above 05-01 no acute events overnight- tolerating airvo- see systems review above 05-02 no acute events overnight; tolerating airvo this AM- see systems review above 05/03: Patient has shown remarkable improvement, weaned down to 3 L and satting 95%. Will attempt to walk test today in anticipation for discharge tomorrow. Discussed with PT team to walk the patient today also. 05/04: Patient appears to have had a decline he was down to 3 L satting 95% with anticipation for discharge today but desatted down to 85% on room air and only 88% on 5 L he is now back at 8 L. I encourage incentive spirometer. While he is on Xarelto and has completed the severe steroids which was subsequently changed to Solu-Medrol I will go ahead and order a CTA to make sure that there is not a failure of Xarelto. We will continue to wean as tolerated discussed with nursing staff at bedside. 05/05/21 Patient is on 40 L of oxygen with 80% FiO2. Patient is encouraged to turn to the side more frequently. Patient is denied any shortness of breath and coughing. No other complaints. Follow the CT scan of the chest. Status post remdesivir and Actemra.Solu-Medrol 40 mg IV every 8 hours. Continue current management. Pulmonary follow-up. 05/06: Patient remains on high flow nasal cannula but states that she feels slightly better with the help of translation from her cousin Aspen. Patient is still awaiting a bed on the floor. Patient diet is being tolerated now so we will stop TPN will be stopped tonight. 05/07/2021: Patient remains on 40 L/min oxygen at 90% FiO2. Attempt made for CTA chest to rule out pulmonary embolism however patient desatted while at CT. Study was aborted, will reattempt again tomorrow. will follow along with renetta bertrand. Discussed/updated patient and patient's daughter over phone regarding any active clinical issues. Patient only complaint is oral pain from oral candidiasis noted on exam. Nystatin oral solution ordered. Daughter also voiced concern over patient eye drops which she stated that patient needed to restart from home. However she did not remember name of drops. advised daughter to call our hospital with drop name and dosing and we will restart. 05/08/2021: Started anticoagulation with Lovenox yesterday. Awaiting CTA chest completion. Will attempt to de-escalate oxygen as patient tolerates 05/09/2021: Continues to have high O2 requirements. CTA chest aborted due to patient not being able to tolerate transport to and from scanner. Will follow pulmonology recommendations 05/10/2021: Steroids increased yesterday to 125 mg every 8 hour. Continuing full dose anticoagulation. Respiratory status still remains challenging as it is difficult to wean patient off of hifnc. Minimal improvement compared to last few days. Plan to prone patient today. Otherwise: Some improvement in eye symptoms compared to yesterday. Will order more lubricating eye drops 05/11/2021: Still requires high flow nasal cannula, FiO2 de-escalated to 85%.. Encourage continued proning, patient care team aware. Continue with steroids, anticoagulation, antibiotics. 05/12/2021: High flow nasal cannula remains at flow rate 35 L/min and FiO2 of 85%. Patient appears more comfortable today. Started insulin regimen due to hyperglycemia likely multifactorial in the setting of underlying diabetes and high-dose steroids. Continue to encourage patient to prone. Discussed with pulmonology regarding patient underlying anxiety. We both agreed that low-dose BuSpar might be beneficial for the patient. 05/13/2020: hypoxic resp distress overnight. cpap ordered. Current settings on encounter 30/04 at 100% FIO2. Advised care (RN, RT, PT) team to continue to aggressively work with patient as far as proning. Patient can sit at side of bed and rest on bedside tray w/ pillow in "Rodin's thinker pose". continue high dose steroids, PRN ativan for anxiety, Buspar noted in pulm recs. 05/14/21: Patient remains on 100% O2 with high flow. Follow inflammatory markers, wean FiO2 as tolerated, guarded prognosis 05/15: Patient on 40 L high flow O2 today-requiring nonrebreather intermittently, continue to follow inflammatory markers and wean off O2 as shaan ated, guarded prognosis. 05/16:-Remains on high flow O2 along with nonrebreather, continue to follow inflammatory markers and wean off O2 as tolerated, pulmonary and ID following. Guarded prognosis, patient requiring higher concentration of O2 and unable to wean off. 05/17: Persistently recurring higher concentration O2. Patient on both high flow oxygen and nonrebreather. Poor prognosis, continue to follow inflammatory markers. ID and pulmonary care following. Updated family. 05/18: Patient remains on nonrebreather and high flow O2, Prone if possible. Wean FiO2 for sats >88%. Prognosis is very very guarded. Follow inflammatory markers. 05/19: Wean FiO2 for sats >88%. Patient remains on nonrebreather and high flow O2, Prone if possible. Follow inflammatory markers. Prognosis is very very guarded. 05/20: Patient remains on high flow O2 along with nonrebreather. Guarded prognosis. Wean off O2 as tolerated. Pulmonary and ID following 05/21: Clinically very poor prognosis. Patient continuously requiring high flow O2 along with nonrebreather. Updated daughter with all clinical details. Follow BMP, follow inflammatory markers. Wean off O2 as tolerated. Subjective Date of service: 05/21/21 Principal diagnosis: Covid-19 Interval history: Patient seen and examined. Medical records and medication list reviewed. No acute event overnight noted by the RN. Patient remains on high flow O2 along with nonrebreather. Patient is tolerating diet. Discussed plan of care at bedside with patient. Objective - Exam Narrative Exam: Limited physical exam due to COVID-19 pandemic to minimize transmission of the disease and to preserve PPE. Vital reviewed and stable. GENERAL: well-developed well-nourished lying on bed appeared to be in no discomfort. HEENT: Normocephalic. Atraumatic. Right eye congestion NECK: Supple. CHEST/LUNGS: breathing on high flow O2 with nonrebreather HEART/CARDIOVASCULAR: Heart rate stable on telemetry ABDOMEN: Visibly not distended SKIN: There is no rash NEURO: No focal motor deficit. Follows command. MUSCULOSKELETAL: No joint effusion EXTRIMITY: No swelling, no cyanosis or clubbing. PSYCH: Cooperative. - Constitutional Vitals: Vital Signs - 12hr 05/21/21 05/21/21 05/21/21 08:00 08:10 11:32 Temperature 98.3 F Pulse Rate 83 Respiratory 20 Rate Blood Pressure 115/70 O2 Sat by Pulse 70 L 95 95 Oximetry 05/21/21 14:00 Temperature Pulse Rate Respiratory Rate Blood Pressure O2 Sat by Pulse 99 Oximetry - Labs CBC & Chem 7: 05/20/21 08:01 05/20/21 08:01 Labs: Abnormal lab results 05/20/21 05/20/21 05/21/21 Range/Units 16:43 21:21 07:35 POC Glucose 240 H 241 H 162 H (70-105) mg/dL 05/21/21 Range/Units 11:32 POC Glucose 171 H (70-105) mg/dL
[2021-05-21] MEDS: ACETAMINOPHEN 325 MG TAB PO PRN (18:48)
[2021-05-21] MEDS: SENNOSIDES 8.6 MG TAB PO SCH (23:49)
[2021-05-21] MEDS: ENOXAPARIN 40 MG/0.4 ML INJ SUB-Q SCH (23:49)
[2021-05-22] MEDS: LORazepam 2 MG/ML VIAL IV SCH ×4 (00:01→17:03)
[2021-05-22] MEDS: ZINC SULFATE 220 MG CAP PO SCH ×3 (00:02→22:47)
[2021-05-22] MEDS: methylPREDNISolone Sod Succinate 125 MG/2 ML INJ IV SCH ×3 (06:37→22:47)
[2021-05-22] MEDS: MINERAL OIL/PETROLATUM, WHITE OPHTH OINT 3.5 GM OU SCH ×3 (06:37→22:49)
[2021-05-22] MEDS: INSULIN LISPRO 100 UNIT/ML SUB-Q SCH ×4 (10:41→22:48)
[2021-05-22] MEDS: INSULIN GLARGINE 100 UNITS/ML SUB-Q SCH ×2 (10:52→22:48)
[2021-05-22] MEDS: DOCUSATE SODIUM 100 MG CAP PO SCH ×2 (10:53→22:51)
[2021-05-22] MEDS: CHOLECALCIFEROL (VIT D3) 1000 UNIT (25 mcg) TAB PO SCH (10:53)
[2021-05-22] MEDS: ASCORBIC ACID 500 MG TAB PO SCH (10:53)
[2021-05-22] MEDS: FAMOTIDINE 20 MG TAB PO SCH ×2 (10:53→22:47)
[2021-05-22] MEDS: POLYETHYLENE GLYCOL 3350 17 GM POWDER PO SCH (11:08)
[2021-05-22] MEDS: ACETAMINOPHEN 325 MG TAB PO PRN ×2 (15:44→23:00)
--- NOTE | 2021-05-22 16:29 | Progress Note ---
Assessment and Plan 50 y/o female with acute respiratory failure secondary to COVID19 pneumonia. 05/22/21: No new recs for today. Prognosis remains guarded. 05/21/21: Wean as tolerated. Prone if able. Guarded prognosis 05/20/21: COntinue current level of care. 05/17/21: Prone if possible. Wean FiO2 for sats >88%. COntinue scheduled ativan. Prognosis is very very guarded. Unfunded so not a candidate for LTACH 05/16/21: Prone if willing. Wean FIO2 if patient will allow. Anxiety control. Prognosis still remains very guarded. 05/15/21: Not sure if MAR is accurate but may have only gotten one dose of scheduled anixolytic therapy. Continue proning as tolerated, and wean FiO2 and flow for sats >88%. Prognosi remains very very guarded to poor. 05/14/21: Will discontinue the buspar and make the ativan scheduled but will do q6 as oppose to q4 and attempt to leave parameters for nursing when not to give. If anxiety could be controlled, feel that patient could be weaned further. She has no funding so she is not a candidate for LTACH. Prone if possible. Guarded prognosis. This is her 28 day. 05/13/21: Ordered buspar 10 BID to start with to help with anxiety. Please continue to wean FiO2 as tolerated. Will remind nurse that there is PRN ativan available. Continue higher doses of steroids. Prone if able. 05/12/21: Patient may need something longer acting for anxiety. Per chart has not gotten any ativan in days. Would be ok with either buspar or low dose klonopin bid. COntinue higher doses of steroids as patient seems to be responding. Prone if possible. 05/11/21: Continue high doses of steroids and continue to wean for sats >88%. Please encourage proning. 05/10/21: Will continue this dose of steroid at least through the weekend and assess for improvement. will speak with RT about aggressive weaning. Full dose anticoagulation continues. Very very guarded to poor prognosis. 05/09/21: Going to consider increasing steroids to 125q8, maybe as early as tomorrow. continue full dose anticoagulation. 05/08/21: Continue anticoagulation and steroids. Prone if possible. Anxiety control. No objection to CTA if this can happen. Very very guarded prognosis. 05/07/21: Spoke with IMS, not opposed to full dose anticoagulation. If patient goes back on NRB HFNC combo may need to consider restarting PPN again. Encourage proning. Guarded prognosis. 05/06/21: Continue to wean FiO2 and flow for sats >88%. Tolerating diet now so will stop PPN. Continue anxiety control. Continue IV steroids. Would not obje ct to transfer to [facility] floor if bed available. Not sure why she was titrated back up to 100% from 85 as all sats documented in the RT's notes were acceptable. Same for under vital signs as well. 05/03/21: Set back last night from yesterday. Continue bipap therapy for now and attempt HFNC maybe later this afternoon. Continue to use PRN ativan but may need to schedule as she likely took off mask from anxiety. Continue IV steroids. Hold on transfer to [facility] Floor. 05/02/21: Continue to wean FiO2 as tolerated for sats >88%. Will continue bipap at night. Patient has no funding so not a candidate for LTACH. Given that she has been stable and not requiring the combo of HFNC and NRB, will consider moving to [facility] floor. 05/01/21: Continue to wean FiO2 for sats >88%. A sat of 90 is more than acceptable and oxygen should not be increased for this unless patient desats and remains at a sat lower than 88. Bipap at night to give some form of relief and HFNC during the day. Currently on just this alone which is improvement. Ok with daily diuresis but must monitor renal function and BP closely. She was over diuresed last week and we ended up giving fluid back. Prognosis remains guarded. 04/30/21: Will start CLinimix today for nutritional support, without electrolytes. Check labs in am. Prone if able. Continue precedx for anxiety. Very very guarded prognosis. Attempting our best to not intubate. 04/29/21: Continue precedex. Continue IV solumedrol. Prone if able. Guarded prognosis. 04/28/21: Continue Precedex. Picc team attempting to place line now. Stable on Bipap. Ordered steroids IV solumedrol to start today. Prognosis remains guarded, still at very high risk for intubation. 04/27/21: Hypotension improving/improved. Hold on any further lasix dosing. Continue precedex to help with anxeity. later today please attempt HFNC with NRB if needed. Attempt to feed if possible. Steroids end today, please order solumedrol 40q8 to start tomorrow (04/28/21). guarded prognosis. 04/26/21: Hypotension today, most likely from precedex use and diuresis that I did the last several days. Will bolus again today. Consider midodrine if BP does not respond. 04/25/21: Lasix again today. Keep PRN ativan for now. Hold on precedex for now. Guarded prognosis. Labs ordered for tomorrow. 04/24/21: Lasix today. Will also start patient on low dose PRN ativan. If this does not help will then try precedex. Guarded prognosis. 04/23/21: Prone as tolerated. No lasix today. Continue decadron. Guarded prognosis. High risk for intubation and high mortality with intubation. 04/19/21: Prone as tolerated during the day and sleep prone at night. Continue IV remdesivir and steroids. Did get actemra. Guarded prognosis. 1. Daily net negative state 2. Prone if possible 3. IV remdesivir. 4. Should be a candidate for Actemra 5. IV steroids 6. Guarded Prognosis Subjective Date of service: 05/22/21 Principal diagnosis: Covid-19 Interval history: No acute events. remains on HFNC Objective Vital Signs - 12hr 05/22/21 05/22/21 05/22/21 05:12 11:52 11:53 Temperature 98.2 F 98.5 F Pulse Rate 65 98 H Respiratory 18 28 H Rate Blood Pressure 105/65 124/67 O2 Sat by Pulse 98 97 97 Oximetry 05/22/21 16:20 Temperature 98.9 F Pulse Rate 80 Respiratory 24 Rate Blood Pressure 110/54 O2 Sat by Pulse 96 Oximetry Constitutional: no acute distress, alert Eyes: non-icteric ENT: oropharynx moist Neck: supple Effort: normal Ascultation: Bilateral: diminished breath sounds Cardiovascular: regular rate and rhythm Gastrointestinal: normoactive bowel sounds, soft, non-tender, non-distended Integumentary: normal Extremities: no cyanosis, no edema, pink and warm Neurologic: normal mental status, non-focal exam, pupils equal and round, CN II- XII normal Psychiatric: mood appropriate, affect normal CBC and BMP: 05/20/21 08:01 05/20/21 08:01 ABG, PT/INR, D-dimer: ABG ABG pH 7.403 pH Units (7.350-7.450) 05/14/21 02:23 POC ABG pCO2 45.4 mmHg (32.0-48.0) 05/03/21 04:49 ABG pCO2 50.2 mm Hg 05/14/21 02:23 POC ABG pO2 65.3 mmHg (83-108) L 05/03/21 04:49 ABG pO2 130.3 mm Hg (80.0-90.0) H 05/14/21 02:23 POC ABG HCO3 18.5 05/03/21 04:49 ABG O2 Saturation 98.5 % (95.0-99.0) 05/14/21 02:23 PT/INR, D-dimer D-Dimer 874.02 ng/mlDDU (0-234) H 05/18/21 15:06 Abnormal lab findings: Abnormal Labs 04/16/21 04/16/21 04/16/21 11:42 11:42 11:42 WBC MCHC RDW 16.1 H Lymph % (Auto) 7.8 L Lymph # (Auto) 0.8 L Baso # (Auto) Seg Neutrophils % 87.7 H Seg Neuts % (Manual) Lymphocytes % (Manual) Seg Neutrophils # 8.5 H Seg Neutrophils # Man Lymphocytes # (Manual) D-Dimer 338.70 H ABG pH POC ABG pO2 ABG pO2 ABG HCO3 ABG O2 Saturation ABG Base Excess ABG Oxyhemoglobin ABG Sodium ABG Chloride ABG Glucose Oxyhemoglobin Carboxyhemoglobin Sodium Potassium Chloride Carbon Dioxide BUN Creatinine Glucose 194 H POC Glucose Hemoglobin A1c Ferritin AST ALT Alkaline Phosphatase Lactate Dehydrogenase C-Reactive Protein Total Protein 8.4 H Albumin 3.8 L Arterial Blood Glucose Coronavirus (PCR) 04/16/21 04/16/21 04/17/21 11:42 11:42 03:50 WBC MCHC RDW 16.0 H Lymph % (Auto) 7.7 L Lymph # (Auto) 0.6 L Baso # (Auto) Seg Neutrophils % 89.8 H Seg Neuts % (Manual) Lymphocytes % (Manual) Seg Neutrophils # Seg Neutrophils # Man Lymphocytes # (Manual) D-Dimer ABG pH POC ABG pO2 ABG pO2 ABG HCO3 ABG O2 Saturation ABG Base Excess ABG Oxyhemoglobin ABG Sodium ABG Chloride ABG Glucose Oxyhemoglobin Carboxyhemoglobin Sodium Potassium Chloride Carbon Dioxide BUN Creatinine Glucose 195 H POC Glucose Hemoglobin A1c Ferritin 254.3 H AST ALT Alkaline Phosphatase Lactate Dehydrogenase 359 H C-Reactive Protein 15.20 H Total Protein Albumin Arterial Blood Glucose Coronavirus (PCR) 04/17/21 04/17/21 04/17/21 03:50 08:26 08:26 WBC MCHC RDW Lymph % (Auto) Lymph # (Auto) Baso # (Auto) Seg Neutrophils % Seg Neuts % (Manual) Lymphocytes % (Manual) Seg Neutrophils # Seg Neutrophils # Man Lymphocytes # (Manual) D-Dimer 262.48 H ABG pH POC ABG pO2 ABG pO2 ABG HCO3 ABG O2 Saturation ABG Base Excess ABG Oxyhemoglobin ABG Sodium ABG Chloride ABG Glucose Oxyhemoglobin Carboxyhemoglobin Sodium Potassium Chloride Carbon Dioxide BUN 20 H Creatinine 0.5 L Glucose 249 H 225 H POC Glucose Hemoglobin A1c Ferritin AST ALT Alkaline Phosphatase Lactate Dehydrogenase 338 H C-Reactive Protein 17.20 H Total Protein Albumin 3.2 L Arterial Blood Glucose Coronavirus (PCR) 04/17/21 04/17/21 04/17/21 08:26 15:04 Unknown WBC MCHC RDW Lymph % (Auto) Lymph # (Auto) Baso # (Auto) Seg Neutrophils % Seg Neuts % (Manual) Lymphocytes % (Manual) Seg Neutrophils # Seg Neutrophils # Man Lymphocytes # (Manual) D-Dimer ABG pH POC ABG pO2 ABG pO2 ABG HCO3 ABG O2 Saturation ABG Base Excess ABG Oxyhemoglobin ABG Sodium ABG Chloride ABG Glucose Oxyhemoglobin Carboxyhemoglobin Sodium Potassium Chloride Carbon Dioxide BUN 20 H Creatinine 0.5 L Glucose 246 H POC Glucose Hemoglobin A1c Ferritin 392.0 H AST ALT Alkaline Phosphatase Lactate Dehydrogenase C-Reactive Protein Total Protein 8.3 H Albumin 3.1 L Arterial Blood Glucose Coronavirus (PCR) Positive A 04/18/21 04/18/21 04/18/21 05:06 05:06 07:36 WBC 11.6 H MCHC RDW 16.1 H Lymph % (Auto) Lymph # (Auto) Baso # (Auto) Seg Neutrophils % Seg Neuts % (Manual) Lymphocytes % (Manual) Seg Neutrophils # Seg Neutrophils # Man Lymphocytes # (Manual) D-Dimer ABG pH POC ABG pO2 ABG pO2 ABG HCO3 ABG O2 Saturation ABG Base Excess ABG Oxyhemoglobin ABG Sodium ABG Chloride ABG Glucose Oxyhemoglobin Carboxyhemoglobin Sodium Potassium 5.2 H Chloride Carbon Dioxide BUN 22 H Creatinine 0.5 L Glucose 315 H POC Glucose Hemoglobin A1c 8.5 H Ferritin AST ALT Alkaline Phosphatase Lactate Dehydrogenase C-Reactive Protein Total Protein Albumin 3.3 L Arterial Blood Glucose Coronavirus (PCR) 04/18/21 04/18/21 04/18/21 11:59 16:43 23:24 WBC MCHC RDW Lymph % (Auto) Lymph # (Auto) Baso # (Auto) Seg Neutrophils % Seg Neuts % (Manual) Lymphocytes % (Manual) Seg Neutrophils # Seg Neutrophils # Man Lymphocytes # (Manual) D-Dimer ABG pH POC ABG pO2 ABG pO2 ABG HCO3 ABG O2 Saturation ABG Base Excess ABG Oxyhemoglobin ABG Sodium ABG Chloride ABG Glucose Oxyhemoglobin Carboxyhemoglobin Sodium Potassium Chloride Carbon Dioxide BUN Creatinine Glucose POC Glucose 284 H 273 H 290 H Hemoglobin A1c Ferritin AST ALT Alkaline Phosphatase Lactate Dehydrogenase C-Reactive Protein Total Protein Albumin Arterial Blood Glucose Coronavirus (PCR) 04/19/21 04/19/21 04/19/21 04:19 04:19 08:10 WBC MCHC RDW 15.7 H Lymph % (Auto) Lymph # (Auto) Baso # (Auto) Seg Neutrophils % Seg Neuts % (Manual) Lymphocytes % (Manual) Seg Neutrophils # Seg Neutrophils # Man Lymphocytes # (Manual) D-Dimer ABG pH POC ABG pO2 ABG pO2 ABG HCO3 ABG O2 Saturation ABG Base Excess ABG Oxyhemoglobin ABG Sodium ABG Chloride ABG Glucose Oxyhemoglobin Carboxyhemoglobin Sodium Potassium Chloride Carbon Dioxide BUN 27 H Creatinine 0.4 L Glucose 184 H POC Glucose 194 H Hemoglobin A1c Ferritin AST ALT Alkaline Phosphatase Lactate Dehydrogenase C-Reactive Protein Total Protein Albumin 3.1 L Arterial Blood Glucose Coronavirus (PCR) 04/19/21 04/19/21 04/19/21 11:38 16:25 22:04 WBC MCHC RDW Lymph % (Auto) Lymph # (Auto) Baso # (Auto) Seg Neutrophils % Seg Neuts % (Manual) Lymphocytes % (Manual) Seg Neutrophils # Seg Neutrophils # Man Lymphocytes # (Manual) D-Dimer ABG pH POC ABG pO2 ABG pO2 ABG HCO3 ABG O2 Saturation ABG Base Excess ABG Oxyhemoglobin ABG Sodium ABG Chloride ABG Glucose Oxyhemoglobin Carboxyhemoglobin Sodium Potassium Chloride Carbon Dioxide BUN Creatinine Glucose POC Glucose 224 H 297 H 251 H Hemoglobin A1c Ferritin AST ALT Alkaline Phosphatase Lactate Dehydrogenase C-Reactive Protein Total Protein Albumin Arterial Blood Glucose Coronavirus (PCR) 04/20/21 04/20/21 04/20/21 05:28 08:43 16:21 WBC MCHC RDW Lymph % (Auto) Lymph # (Auto) Baso # (Auto) Seg Neutrophils % Seg Neuts % (Manual) Lymphocytes % (Manual) Seg Neutrophils # Seg Neutrophils # Man Lymphocytes # (Manual) D-Dimer ABG pH POC ABG pO2 ABG pO2 ABG HCO3 ABG O2 Saturation ABG Base Excess ABG Oxyhemoglobin ABG Sodium ABG Chloride ABG Glucose Oxyhemoglobin Carboxyhemoglobin Sodium Potassium Chloride Carbon Dioxide BUN 27 H Creatinine Glucose 192 H POC Glucose 173 H 253 H Hemoglobin A1c Ferritin AST ALT Alkaline Phosphatase Lactate Dehydrogenase C-Reactive Protein Total Protein Albumin 3.0 L Arterial Blood Glucose Coronavirus (PCR) 04/21/21 04/21/21 04/21/21 07:58 12:05 16:08 WBC MCHC RDW Lymph % (Auto) Lymph # (Auto) Baso # (Auto) Seg Neutrophils % Seg Neuts % (Manual) Lymphocytes % (Manual) Seg Neutrophils # Seg Neutrophils # Man Lymphocytes # (Manual) D-Dimer ABG pH POC ABG pO2 ABG pO2 ABG HCO3 ABG O2 Saturation ABG Base Excess ABG Oxyhemoglobin ABG Sodium ABG Chloride ABG Glucose Oxyhemoglobin Carboxyhemoglobin Sodium Potassium Chloride Carbon Dioxide BUN Creatinine Glucose POC Glucose 140 H 252 H 214 H Hemoglobin A1c Ferritin AST ALT Alkaline Phosphatase Lactate Dehydrogenase C-Reactive Protein Total Protein Albumin Arterial Blood Glucose Coronavirus (PCR) 04/21/21 04/22/21 04/22/21 21:42 08:37 12:01 WBC MCHC RDW Lymph % (Auto) Lymph # (Auto) Baso # (Auto) Seg Neutrophils % Seg Neuts % (Manual) Lymphocytes % (Manual) Seg Neutrophils # Seg Neutrophils # Man Lymphocytes # (Manual) D-Dimer ABG pH 7.457 H POC ABG pO2 49.4 L ABG pO2 ABG HCO3 ABG O2 Saturation ABG Base Excess ABG Oxyhemoglobin 85.6 L ABG Sodium ABG Chloride ABG Glucose 121 H Oxyhemoglobin Carboxyhemoglobin 0.3 L Sodium Potassium Chloride Carbon Dioxide BUN Creatinine Glucose POC Glucose 162 H 227 H Hemoglobin A1c Ferritin AST ALT Alkaline Phosphatase Lactate Dehydrogenase C-Reactive Protein Total Protein Albumin Arterial Blood Glucose 121 H Coronavirus (PCR) 04/22/21 04/22/21 04/23/21 16:26 22:23 04:52 WBC MCHC RDW 15.7 H Lymph % (Auto) Lymph # (Auto) Baso # (Auto) Seg Neutrophils % Seg Neuts % (Manual) Lymphocytes % (Manual) Seg Neutrophils # Seg Neutrophils # Man Lymphocytes # (Manual) D-Dimer ABG pH POC ABG pO2 ABG pO2 ABG HCO3 ABG O2 Saturation ABG Base Excess ABG Oxyhemoglobin ABG Sodium ABG Chloride ABG Glucose Oxyhemoglobin Carboxyhemoglobin Sodium Potassium Chloride Carbon Dioxide BUN Creatinine Glucose POC Glucose 200 H 136 H Hemoglobin A1c Ferritin AST ALT Alkaline Phosphatase Lactate Dehydrogenase C-Reactive Protein Total Protein Albumin Arterial Blood Glucose Coronavirus (PCR) 04/23/21 04/23/21 04/23/21 04:52 12:06 17:41 WBC MCHC RDW Lymph % (Auto) Lymph # (Auto) Baso # (Auto) Seg Neutrophils % Seg Neuts % (Manual) Lymphocytes % (Manual) Seg Neutrophils # Seg Neutrophils # Man Lymphocytes # (Manual) D-Dimer ABG pH POC ABG pO2 ABG pO2 ABG HCO3 ABG O2 Saturation ABG Base Excess ABG Oxyhemoglobin ABG Sodium ABG Chloride ABG Glucose Oxyhemoglobin Carboxyhemoglobin Sodium 136 L Potassium Chloride 97.7 L Carbon Dioxide BUN 23 H Creatinine Glucose 101 H POC Glucose 202 H 169 H Hemoglobin A1c Ferritin AST 46 H ALT Alkaline Phosphatase Lactate Dehydrogenase C-Reactive Protein Total Protein Albumin 3.3 L Arterial Blood Glucose Coronavirus (PCR) 04/23/21 04/24/21 04/24/21 23:08 05:17 08:38 WBC MCHC RDW Lymph % (Auto) Lymph # (Auto) Baso # (Auto) Seg Neutrophils % Seg Neuts % (Manual) Lymphocytes % (Manual) Seg Neutrophils # Seg Neutrophils # Man Lymphocytes # (Manual) D-Dimer ABG pH POC ABG pO2 ABG pO2 ABG HCO3 ABG O2 Saturation ABG Base Excess ABG Oxyhemoglobin ABG Sodium ABG Chloride ABG Glucose Oxyhemoglobin Carboxyhemoglobin Sodium Potassium Chloride Carbon Dioxide BUN Creatinine Glucose POC Glucose 111 H 108 H 126 H Hemoglobin A1c Ferritin AST ALT Alkaline Phosphatase Lactate Dehydrogenase C-Reactive Protein Total Protein Albumin Arterial Blood Glucose Coronavirus (PCR) 04/24/21 04/24/21 04/24/21 11:54 17:57 21:23 WBC MCHC RDW Lymph % (Auto) Lymph # (Auto) Baso # (Auto) Seg Neutrophils % Seg Neuts % (Manual) Lymphocytes % (Manual) Seg Neutrophils # Seg Neutrophils # Man Lymphocytes # (Manual) D-Dimer ABG pH POC ABG pO2 ABG pO2 ABG HCO3 ABG O2 Saturation ABG Base Excess ABG Oxyhemoglobin ABG Sodium ABG Chloride ABG Glucose Oxyhemoglobin Carboxyhemoglobin Sodium Potassium Chloride Carbon Dioxide BUN Creatinine Glucose POC Glucose 147 H 177 H 138 H Hemoglobin A1c Ferritin AST ALT Alkaline Phosphatase Lactate Dehydrogenase C-Reactive Protein Total Protein Albumin Arterial Blood Glucose Coronavirus (PCR) 04/25/21 04/25/21 04/25/21 07:06 11:23 15:43 WBC MCHC RDW Lymph % (Auto) Lymph # (Auto) Baso # (Auto) Seg Neutrophils % Seg Neuts % (Manual) Lymphocytes % (Manual) Seg Neutrophils # Seg Neutrophils # Man Lymphocytes # (Manual) D-Dimer ABG pH POC ABG pO2 ABG pO2 ABG HCO3 ABG O2 Saturation ABG Base Excess ABG Oxyhemoglobin ABG Sodium ABG Chloride ABG Glucose Oxyhemoglobin Carboxyhemoglobin Sodium Potassium Chloride Carbon Dioxide BUN Creatinine Glucose POC Glucose 147 H 169 H 227 H Hemoglobin A1c Ferritin AST ALT Alkaline Phosphatase Lactate Dehydrogenase C-Reactive Protein Total Protein Albumin Arterial Blood Glucose Coronavirus (PCR) 04/25/21 04/26/21 04/26/21 21:22 02:45 05:15 WBC MCHC RDW Lymph % (Auto) Lymph # (Auto) Baso # (Auto) Seg Neutrophils % Seg Neuts % (Manual) Lymphocytes % (Manual) Seg Neutrophils # Seg Neutrophils # Man Lymphocytes # (Manual) D-Dimer ABG pH POC ABG pO2 70.7 L ABG pO2 ABG HCO3 ABG O2 Saturation ABG Base Excess ABG Oxyhemoglobin 93.0 L ABG Sodium 132.7 L ABG Chloride ABG Glucose 115 H Oxyhemoglobin Carboxyhemoglobin Sodium Potassium Chloride 95.8 L Carbon Dioxide 32 H BUN 20 H Creatinine Glucose 102 H POC Glucose 196 H Hemoglobin A1c Ferritin AST ALT Alkaline Phosphatase Lactate Dehydrogenase C-Reactive Protein Total Protein Albumin Arterial Blood Glucose 115 H Coronavirus (PCR) 04/26/21 04/26/21 04/26/21 11:49 16:09 21:07 WBC MCHC RDW Lymph % (Auto) Lymph # (Auto) Baso # (Auto) Seg Neutrophils % Seg Neuts % (Manual) Lymphocytes % (Manual) Seg Neutrophils # Seg Neutrophils # Man Lymphocytes # (Manual) D-Dimer ABG pH POC ABG pO2 ABG pO2 ABG HCO3 ABG O2 Saturation ABG Base Excess ABG Oxyhemoglobin ABG Sodium ABG Chloride ABG Glucose Oxyhemoglobin Carboxyhemoglobin Sodium Potassium Chloride Carbon Dioxide BUN Creatinine Glucose POC Glucose 114 H 188 H 136 H Hemoglobin A1c Ferritin AST ALT Alkaline Phosphatase Lactate Dehydrogenase C-Reactive Protein Total Protein Albumin Arterial Blood Glucose Coronavirus (PCR) 04/27/21 04/27/21 04/28/21 17:34 22:12 08:26 WBC MCHC RDW Lymph % (Auto) Lymph # (Auto) Baso # (Auto) Seg Neutrophils % Seg Neuts % (Manual) Lymphocytes % (Manual) Seg Neutrophils # Seg Neutrophils # Man Lymphocytes # (Manual) D-Dimer ABG pH POC ABG pO2 ABG pO2 ABG HCO3 ABG O2 Saturation ABG Base Excess ABG Oxyhemoglobin ABG Sodium ABG Chloride ABG Glucose Oxyhemoglobin Carboxyhemoglobin Sodium Potassium Chloride Carbon Dioxide BUN Creatinine Glucose POC Glucose 128 H 159 H 69 L Hemoglobin A1c Ferritin AST ALT Alkaline Phosphatase Lactate Dehydrogenase C-Reactive Protein Total Protein Albumin Arterial Blood Glucose Coronavirus (PCR) 04/28/21 04/28/21 04/29/21 12:22 21:11 06:05 WBC MCHC RDW Lymph % (Auto) Lymph # (Auto) Baso # (Auto) Seg Neutrophils % Seg Neuts % (Manual) Lymphocytes % (Manual) Seg Neutrophils # Seg Neutrophils # Man Lymphocytes # (Manual) D-Dimer ABG pH POC ABG pO2 ABG pO2 ABG HCO3 ABG O2 Saturation ABG Base Excess ABG Oxyhemoglobin ABG Sodium ABG Chloride ABG Glucose Oxyhemoglobin Carboxyhemoglobin Sodium 132 L Potassium Chloride 94.4 L Carbon Dioxide BUN Creatinine 0.2 L D Glucose 140 H POC Glucose 141 H 171 H Hemoglobin A1c Ferritin AST ALT Alkaline Phosphatase Lactate Dehydrogenase C-Reactive Protein Total Protein Albumin Arterial Blood Glucose Coronavirus (PCR) 04/29/21 04/29/21 04/29/21 06:05 07:24 11:36 WBC MCHC 35 H RDW 15.9 H Lymph % (Auto) Lymph # (Auto) Baso # (Auto) Seg Neutrophils % Seg Neuts % (Manual) Lymphocytes % (Manual) Seg Neutrophils # Seg Neutrophils # Man Lymphocytes # (Manual) D-Dimer ABG pH POC ABG pO2 ABG pO2 ABG HCO3 ABG O2 Saturation ABG Base Excess ABG Oxyhemoglobin ABG Sodium ABG Chloride ABG Glucose Oxyhemoglobin Carboxyhemoglobin Sodium Potassium Chloride Carbon Dioxide BUN Creatinine Glucose POC Glucose 141 H 220 H Hemoglobin A1c Ferritin AST ALT Alkaline Phosphatase Lactate Dehydrogenase C-Reactive Protein Total Protein Albumin Arterial Blood Glucose Coronavirus (PCR) 04/29/21 04/29/21 04/29/21 14:23 15:30 17:06 WBC MCHC RDW Lymph % (Auto) Lymph # (Auto) Baso # (Auto) Seg Neutrophils % Seg Neuts % (Manual) Lymphocytes % (Manual) Seg Neutrophils # Seg Neutrophils # Man Lymphocytes # (Manual) D-Dimer ABG pH POC ABG pO2 ABG pO2 52.6 L ABG HCO3 ABG O2 Saturation 86.4 L ABG Base Excess ABG Oxyhemoglobin ABG Sodium ABG Chloride ABG Glucose Oxyhemoglobin 84.6 L Carboxyhemoglobin Sodium Potassium Chloride Carbon Dioxide BUN Creatinine Glucose POC Glucose 173 H 158 H Hemoglobin A1c Ferritin AST ALT Alkaline Phosphatase Lactate Dehydrogenase C-Reactive Protein Total Protein Albumin Arterial Blood Glucose Coronavirus (PCR) 04/29/21 04/30/21 04/30/21 21:27 07:16 08:00 WBC MCHC RDW 16.1 H Lymph % (Auto) Lymph # (Auto) Baso # (Auto) Seg Neutrophils % Seg Neuts % (Manual) Lymphocytes % (Manual) Seg Neutrophils # Seg Neutrophils # Man Lymphocytes # (Manual) D-Dimer ABG pH POC ABG pO2 ABG pO2 ABG HCO3 ABG O2 Saturation ABG Base Excess ABG Oxyhemoglobin ABG Sodium ABG Chloride ABG Glucose Oxyhemoglobin Carboxyhemoglobin Sodium Potassium Chloride Carbon Dioxide BUN Creatinine Glucose POC Glucose 244 H 175 H Hemoglobin A1c Ferritin AST ALT Alkaline Phosphatase Lactate Dehydrogenase C-Reactive Protein Total Protein Albumin Arterial Blood Glucose Coronavirus (PCR) 04/30/21 04/30/21 04/30/21 08:00 08:00 11:03 WBC MCHC RDW Lymph % (Auto) Lymph # (Auto) Baso # (Auto) Seg Neutrophils % Seg Neuts % (Manual) Lymphocytes % (Manual) Seg Neutrophils # Seg Neutrophils # Man Lymphocytes # (Manual) D-Dimer 1796.87 H ABG pH POC ABG pO2 ABG pO2 ABG HCO3 ABG O2 Saturation ABG Base Excess ABG Oxyhemoglobin ABG Sodium ABG Chloride ABG Glucose Oxyhemoglobin Carboxyhemoglobin Sodium 135 L Potassium Chloride 96.3 L Carbon Dioxide BUN Creatinine 0.2 L Glucose 153 H POC Glucose 183 H Hemoglobin A1c Ferritin AST 41 H ALT 76 H Alkaline Phosphatase 160 H Lactate Dehydrogenase 522 H C-Reactive Protein Total Protein 6.1 L Albumin 3.1 L Arterial Blood Glucose Coronavirus (PCR) 04/30/21 04/30/21 05/01/21 17:04 22:17 05:39 WBC MCHC RDW Lymph % (Auto) Lymph # (Auto) Baso # (Auto) Seg Neutrophils % Seg Neuts % (Manual) Lymphocytes % (Manual) Seg Neutrophils # Seg Neutrophils # Man Lymphocytes # (Manual) D-Dimer ABG pH POC ABG pO2 ABG pO2 ABG HCO3 ABG O2 Saturation ABG Base Excess ABG Oxyhemoglobin ABG Sodium ABG Chloride ABG Glucose Oxyhemoglobin Carboxyhemoglobin Sodium 133 L Potassium Chloride 92.1 L Carbon Dioxide BUN 24 H Creatinine 0.4 L D Glucose 269 H POC Glucose 167 H 208 H Hemoglobin A1c Ferritin AST ALT 66 H Alkaline Phosphatase 142 H Lactate Dehydrogenase C-Reactive Protein Total Protein Albumin 3.2 L Arterial Blood Glucose Coronavirus (PCR) 05/01/21 05/01/21 05/01/21 05:39 05:39 07:45 WBC MCHC RDW 16.0 H Lymph % (Auto) Lymph # (Auto) Baso # (Auto) Seg Neutrophils % Seg Neuts % (Manual) Lymphocytes % (Manual) Seg Neutrophils # Seg Neutrophils # Man Lymphocytes # (Manual) D-Dimer 3984.95 H ABG pH POC ABG pO2 ABG pO2 ABG HCO3 ABG O2 Saturation ABG Base Excess ABG Oxyhemoglobin ABG Sodium ABG Chloride ABG Glucose Oxyhemoglobin Carboxyhemoglobin Sodium Potassium Chloride Carbon Dioxide BUN Creatinine Glucose POC Glucose 229 H Hemoglobin A1c Ferritin AST ALT Alkaline Phosphatase Lactate Dehydrogenase C-Reactive Protein Total Protein Albumin Arterial Blood Glucose Coronavirus (PCR) 05/01/21 05/01/21 05/01/21 12:10 15:46 21:06 WBC MCHC RDW Lymph % (Auto) Lymph # (Auto) Baso # (Auto) Seg Neutrophils % Seg Neuts % (Manual) Lymphocytes % (Manual) Seg Neutrophils # Seg Neutrophils # Man Lymphocytes # (Manual) D-Dimer ABG pH POC ABG pO2 ABG pO2 ABG HCO3 ABG O2 Saturation ABG Base Excess ABG Oxyhemoglobin ABG Sodium ABG Chloride ABG Glucose Oxyhemoglobin Carboxyhemoglobin Sodium Potassium Chloride Carbon Dioxide BUN Creatinine Glucose POC Glucose 296 H 279 H 232 H Hemoglobin A1c Ferritin AST ALT Alkaline Phosphatase Lactate Dehydrogenase C-Reactive Protein Total Protein Albumin Arterial Blood Glucose Coronavirus (PCR) 05/02/21 05/02/21 05/02/21 04:55 04:55 04:55 WBC MCHC RDW 16.1 H Lymph % (Auto) Lymph # (Auto) Baso # (Auto) Seg Neutrophils % Seg Neuts % (Manual) Lymphocytes % (Manual) Seg Neutrophils # Seg Neutrophils # Man Lymphocytes # (Manual) D-Dimer 1401.08 H ABG pH POC ABG pO2 ABG pO2 ABG HCO3 ABG O2 Saturation ABG Base Excess ABG Oxyhemoglobin ABG Sodium ABG Chloride ABG Glucose Oxyhemoglobin Carboxyhemoglobin Sodium 131 L Potassium Chloride 95.5 L Carbon Dioxide BUN 20 H Creatinine 0.3 L Glucose 288 H POC Glucose Hemoglobin A1c Ferritin AST ALT Alkaline Phosphatase Lactate Dehydrogenase C-Reactive Protein Total Protein 6.0 L Albumin 3.1 L Arterial Blood Glucose Coronavirus (PCR) 05/02/21 05/02/21 05/02/21 07:53 11:45 15:25 WBC MCHC RDW Lymph % (Auto) Lymph # (Auto) Baso # (Auto) Seg Neutrophils % Seg Neuts % (Manual) Lymphocytes % (Manual) Seg Neutrophils # Seg Neutrophils # Man Lymphocytes # (Manual) D-Dimer ABG pH POC ABG pO2 ABG pO2 ABG HCO3 ABG O2 Saturation ABG Base Excess ABG Oxyhemoglobin ABG Sodium ABG Chloride ABG Glucose Oxyhemoglobin Carboxyhemoglobin Sodium Potassium Chloride Carbon Dioxide BUN Creatinine Glucose POC Glucose 180 H 228 H 275 H Hemoglobin A1c Ferritin AST ALT Alkaline Phosphatase Lactate Dehydrogenase C-Reactive Protein Total Protein Albumin Arterial Blood Glucose Coronavirus (PCR) 05/02/21 05/03/21 05/03/21 22:56 04:30 04:49 WBC MCHC RDW Lymph % (Auto) Lymph # (Auto) Baso # (Auto) Seg Neutrophils % Seg Neuts % (Manual) Lymphocytes % (Manual) Seg Neutrophils # Seg Neutrophils # Man Lymphocytes # (Manual) D-Dimer ABG pH 7.229 L POC ABG pO2 65.3 L ABG pO2 ABG HCO3 ABG O2 Saturation ABG Base Excess ABG Oxyhemoglobin 87.8 L ABG Sodium 133.0 L ABG Chloride 97.0 L ABG Glucose 403 H Oxyhemoglobin Carboxyhemoglobin Sodium 130 L Potassium Chloride 94.9 L Carbon Dioxide BUN 20 H Creatinine 0.5 L D Glucose 359 H POC Glucose 293 H Hemoglobin A1c Ferritin AST 54 H ALT 75 H Alkaline Phosphatase 138 H Lactate Dehydrogenase C-Reactive Protein Total Protein Albumin 3.6 L Arterial Blood Glucose 403 H Coronavirus (PCR) 05/03/21 05/03/21 05/03/21 05:27 11:26 17:57 WBC MCHC RDW Lymph % (Auto) Lymph # (Auto) Baso # (Auto) Seg Neutrophils % Seg Neuts % (Manual) Lymphocytes % (Manual) Seg Neutrophils # Seg Neutrophils # Man Lymphocytes # (Manual) D-Dimer ABG pH POC ABG pO2 ABG pO2 ABG HCO3 ABG O2 Saturation ABG Base Excess ABG Oxyhemoglobin ABG Sodium ABG Chloride ABG Glucose Oxyhemoglobin Carboxyhemoglobin Sodium Potassium Chloride Carbon Dioxide BUN Creatinine Glucose POC Glucose 361 H 297 H 226 H Hemoglobin A1c Ferritin AST ALT Alkaline Phosphatase Lactate Dehydrogenase C-Reactive Protein Total Protein Albumin Arterial Blood Glucose Coronavirus (PCR) 05/03/21 05/04/21 05/04/21 23:12 05:12 07:30 WBC MCHC RDW Lymph % (Auto) Lymph # (Auto) Baso # (Auto) Seg Neutrophils % Seg Neuts % (Manual) Lymphocytes % (Manual) Seg Neutrophils # Seg Neutrophils # Man Lymphocytes # (Manual) D-Dimer ABG pH POC ABG pO2 ABG pO2 ABG HCO3 ABG O2 Saturation ABG Base Excess ABG Oxyhemoglobin ABG Sodium ABG Chloride ABG Glucose Oxyhemoglobin Carboxyhemoglobin Sodium Potassium Chloride Carbon Dioxide BUN Creatinine Glucose POC Glucose 282 H 285 H 254 H Hemoglobin A1c Ferritin AST ALT Alkaline Phosphatase Lactate Dehydrogenase C-Reactive Protein Total Protein Albumin Arterial Blood Glucose Coronavirus (PCR) 05/04/21 05/04/21 05/04/21 08:58 11:45 16:07 WBC MCHC RDW Lymph % (Auto) Lymph # (Auto) Baso # (Auto) Seg Neutrophils % Seg Neuts % (Manual) Lymphocytes % (Manual) Seg Neutrophils # Seg Neutrophils # Man Lymphocytes # (Manual) D-Dimer ABG pH POC ABG pO2 ABG pO2 ABG HCO3 ABG O2 Saturation ABG Base Excess ABG Oxyhemoglobin ABG Sodium ABG Chloride ABG Glucose Oxyhemoglobin Carboxyhemoglobin Sodium 134 L Potassium Chloride Carbon Dioxide BUN 20 H Creatinine 0.3 L Glucose 267 H POC Glucose 244 H 297 H Hemoglobin A1c Ferritin AST ALT Alkaline Phosphatase Lactate Dehydrogenase C-Reactive Protein Total Protein 6.0 L Albumin 3.2 L Arterial Blood Glucose Coronavirus (PCR) 05/04/21 05/05/21 05/05/21 23:32 05:00 05:13 WBC MCHC RDW Lymph % (Auto) Lymph # (Auto) Baso # (Auto) Seg Neutrophils % Seg Neuts % (Manual) Lymphocytes % (Manual) Seg Neutrophils # Seg Neutrophils # Man Lymphocytes # (Manual) D-Dimer ABG pH POC ABG pO2 ABG pO2 ABG HCO3 ABG O2 Saturation ABG Base Excess ABG Oxyhemoglobin ABG Sodium ABG Chloride ABG Glucose Oxyhemoglobin Carboxyhemoglobin Sodium 132 L Potassium Chloride 96.4 L Carbon Dioxide BUN 22 H Creatinine 0.3 L Glucose 228 H POC Glucose 154 H 260 H Hemoglobin A1c Ferritin AST ALT 67 H Alkaline Phosphatase Lactate Dehydrogenase C-Reactive Protein Total Protein 6.1 L Albumin 3.2 L Arterial Blood Glucose Coronavirus (PCR) 05/05/21 05/05/21 05/05/21 11:32 17:49 23:07 WBC MCHC RDW Lymph % (Auto) Lymph # (Auto) Baso # (Auto) Seg Neutrophils % Seg Neuts % (Manual) Lymphocytes % (Manual) Seg Neutrophils # Seg Neutrophils # Man Lymphocytes # (Manual) D-Dimer ABG pH POC ABG pO2 ABG pO2 ABG HCO3 ABG O2 Saturation ABG Base Excess ABG Oxyhemoglobin ABG Sodium ABG Chloride ABG Glucose Oxyhemoglobin Carboxyhemoglobin Sodium Potassium Chloride Carbon Dioxide BUN Creatinine Glucose POC Glucose 279 H 308 H 213 H Hemoglobin A1c Ferritin AST ALT Alkaline Phosphatase Lactate Dehydrogenase C-Reactive Protein Total Protein Albumin Arterial Blood Glucose Coronavirus (PCR) 05/06/21 05/06/21 05/06/21 05:00 05:00 05:20 WBC MCHC RDW 16.8 H Lymph % (Auto) Lymph # (Auto) Baso # (Auto) Seg Neutrophils % Seg Neuts % (Manual) 99.0 H Lymphocytes % (Manual) Seg Neutrophils # Seg Neutrophils # Man 10.9 H Lymphocytes # (Manual) 0.0 L D-Dimer ABG pH POC ABG pO2 ABG pO2 ABG HCO3 ABG O2 Saturation ABG Base Excess ABG Oxyhemoglobin ABG Sodium ABG Chloride ABG Glucose Oxyhemoglobin Carboxyhemoglobin Sodium 133 L Potassium Chloride Carbon Dioxide BUN 21 H Creatinine 0.3 L Glucose 259 H POC Glucose 308 H Hemoglobin A1c Ferritin AST ALT Alkaline Phosphatase Lactate Dehydrogenase C-Reactive Protein Total Protein Albumin 3.2 L Arterial Blood Glucose Coronavirus (PCR) 05/06/21 05/06/21 05/06/21 11:24 17:54 21:32 WBC MCHC RDW Lymph % (Auto) Lymph # (Auto) Baso # (Auto) Seg Neutrophils % Seg Neuts % (Manual) Lymphocytes % (Manual) Seg Neutrophils # Seg Neutrophils # Man Lymphocytes # (Manual) D-Dimer ABG pH POC ABG pO2 ABG pO2 ABG HCO3 ABG O2 Saturation ABG Base Excess ABG Oxyhemoglobin ABG Sodium ABG Chloride ABG Glucose Oxyhemoglobin Carboxyhemoglobin Sodium Potassium Chloride Carbon Dioxide BUN Creatinine Glucose POC Glucose 262 H 124 H 246 H Hemoglobin A1c Ferritin AST ALT Alkaline Phosphatase Lactate Dehydrogenase C-Reactive Protein Total Protein Albumin Arterial Blood Glucose Coronavirus (PCR) 05/06/21 05/07/21 05/07/21 23:10 04:54 04:54 WBC MCHC RDW Lymph % (Auto) Lymph # (Auto) Baso # (Auto) Seg Neutrophils % Seg Neuts % (Manual) Lymphocytes % (Manual) Seg Neutrophils # Seg Neutrophils # Man Lymphocytes # (Manual) D-Dimer 1609.28 H ABG pH POC ABG pO2 ABG pO2 ABG HCO3 ABG O2 Saturation ABG Base Excess ABG Oxyhemoglobin ABG Sodium ABG Chloride ABG Glucose Oxyhemoglobin Carboxyhemoglobin Sodium 136 L Potassium Chloride Carbon Dioxide BUN 23 H Creatinine 0.3 L Glucose 110 H POC Glucose 249 H Hemoglobin A1c Ferritin AST ALT Alkaline Phosphatase Lactate Dehydrogenase C-Reactive Protein Total Protein 6.2 L Albumin 3.0 L Arterial Blood Glucose Coronavirus (PCR) 05/07/21 05/07/21 05/07/21 04:54 04:54 11:41 WBC MCHC RDW Lymph % (Auto) Lymph # (Auto) Baso # (Auto) Seg Neutrophils % Seg Neuts % (Manual) Lymphocytes % (Manual) Seg Neutrophils # Seg Neutrophils # Man Lymphocytes # (Manual) D-Dimer ABG pH POC ABG pO2 ABG pO2 ABG HCO3 ABG O2 Saturation ABG Base Excess ABG Oxyhemoglobin ABG Sodium ABG Chloride ABG Glucose Oxyhemoglobin Carboxyhemoglobin Sodium Potassium Chloride Carbon Dioxide BUN Creatinine Glucose POC Glucose 118 H Hemoglobin A1c Ferritin 296.1 H AST ALT Alkaline Phosphatase Lactate Dehydrogenase 724 H C-Reactive Protein Total Protein Albumin Arterial Blood Glucose Coronavirus (PCR) 05/07/21 05/07/21 05/08/21 16:43 22:34 06:44 WBC MCHC RDW Lymph % (Auto) Lymph # (Auto) Baso # (Auto) Seg Neutrophils % Seg Neuts % (Manual) Lymphocytes % (Manual) Seg Neutrophils # Seg Neutrophils # Man Lymphocytes # (Manual) D-Dimer ABG pH POC ABG pO2 ABG pO2 ABG HCO3 ABG O2 Saturation ABG Base Excess ABG Oxyhemoglobin ABG Sodium ABG Chloride ABG Glucose Oxyhemoglobin Carboxyhemoglobin Sodium Potassium Chloride Carbon Dioxide BUN Creatinine Glucose POC Glucose 159 H 233 H 235 H Hemoglobin A1c Ferritin AST ALT Alkaline Phosphatase Lactate Dehydrogenase C-Reactive Protein Total Protein Albumin Arterial Blood Glucose Coronavirus (PCR) 05/08/21 05/08/21 05/08/21 07:49 11:56 17:13 WBC MCHC RDW Lymph % (Auto) Lymph # (Auto) Baso # (Auto) Seg Neutrophils % Seg Neuts % (Manual) Lymphocytes % (Manual) Seg Neutrophils # Seg Neutrophils # Man Lymphocytes # (Manual) D-Dimer ABG pH POC ABG pO2 ABG pO2 ABG HCO3 ABG O2 Saturation ABG Base Excess ABG Oxyhemoglobin ABG Sodium ABG Chloride ABG Glucose Oxyhemoglobin Carboxyhemoglobin Sodium Potassium Chloride Carbon Dioxide BUN Creatinine Glucose POC Glucose 219 H 184 H 182 H Hemoglobin A1c Ferritin AST ALT Alkaline Phosphatase Lactate Dehydrogenase C-Reactive Protein Total Protein Albumin Arterial Blood Glucose Coronavirus (PCR) 05/08/21 05/09/21 05/09/21 23:35 05:20 05:20 WBC MCHC RDW Lymph % (Auto) Lymph # (Auto) Baso # (Auto) Seg Neutrophils % Seg Neuts % (Manual) Lymphocytes % (Manual) Seg Neutrophils # Seg Neutrophils # Man Lymphocytes # (Manual) D-Dimer 1003.87 H ABG pH POC ABG pO2 ABG pO2 ABG HCO3 ABG O2 Saturation ABG Base Excess ABG Oxyhemoglobin ABG Sodium ABG Chloride ABG Glucose Oxyhemoglobin Carboxyhemoglobin Sodium Potassium Chloride Carbon Dioxide BUN Creatinine Glucose POC Glucose 198 H Hemoglobin A1c Ferritin 378.7 H AST ALT Alkaline Phosphatase Lactate Dehydrogenase C-Reactive Protein Total Protein Albumin Arterial Blood Glucose Coronavirus (PCR) 05/09/21 05/09/21 05/09/21 05:20 06:04 12:53 WBC MCHC RDW Lymph % (Auto) Lymph # (Auto) Baso # (Auto) Seg Neutrophils % Seg Neuts % (Manual) Lymphocytes % (Manual) Seg Neutrophils # Seg Neutrophils # Man Lymphocytes # (Manual) D-Dimer ABG pH POC ABG pO2 ABG pO2 ABG HCO3 ABG O2 Saturation ABG Base Excess ABG Oxyhemoglobin ABG Sodium ABG Chloride ABG Glucose Oxyhemoglobin Carboxyhemoglobin Sodium Potassium Chloride Carbon Dioxide BUN Creatinine Glucose POC Glucose 159 H 180 H Hemoglobin A1c Ferritin AST ALT Alkaline Phosphatase Lactate Dehydrogenase 558 H C-Reactive Protein 2.40 H Total Protein Albumin Arterial Blood Glucose Coronavirus (PCR) 05/09/21 05/09/21 05/10/21 16:43 21:27 10:18 WBC MCHC RDW Lymph % (Auto) Lymph # (Auto) Baso # (Auto) Seg Neutrophils % Seg Neuts % (Manual) Lymphocytes % (Manual) Seg Neutrophils # Seg Neutrophils # Man Lymphocytes # (Manual) D-Dimer ABG pH POC ABG pO2 ABG pO2 ABG HCO3 ABG O2 Saturation ABG Base Excess ABG Oxyhemoglobin ABG Sodium ABG Chloride ABG Glucose Oxyhemoglobin Carboxyhemoglobin Sodium Potassium Chloride Carbon Dioxide BUN Creatinine Glucose POC Glucose 212 H 285 H 261 H Hemoglobin A1c Ferritin AST ALT Alkaline Phosphatase Lactate Dehydrogenase C-Reactive Protein Total Protein Albumin Arterial Blood Glucose Coronavirus (PCR) 05/10/21 05/10/21 05/11/21 17:58 18:02 00:29 WBC MCHC RDW Lymph % (Auto) Lymph # (Auto) Baso # (Auto) Seg Neutrophils % Seg Neuts % (Manual) Lymphocytes % (Manual) Seg Neutrophils # Seg Neutrophils # Man Lymphocytes # (Manual) D-Dimer ABG pH POC ABG pO2 ABG pO2 ABG HCO3 ABG O2 Saturation ABG Base Excess ABG Oxyhemoglobin ABG Sodium ABG Chloride ABG Glucose Oxyhemoglobin Carboxyhemoglobin Sodium Potassium Chloride Carbon Dioxide BUN Creatinine Glucose POC Glucose 213 H 179 H 149 H Hemoglobin A1c Ferritin AST ALT Alkaline Phosphatase Lactate Dehydrogenase C-Reactive Protein Total Protein Albumin Arterial Blood Glucose Coronavirus (PCR) 05/11/21 05/11/21 05/11/21 05:22 11:32 17:00 WBC 14.9 H MCHC RDW 18.9 H Lymph % (Auto) 4.9 L Lymph # (Auto) 0.7 L Baso # (Auto) 0.2 H Seg Neutrophils % Seg Neuts % (Manual) Lymphocytes % (Manual) Seg Neutrophils # 13.3 H Seg Neutrophils # Man Lymphocytes # (Manual) D-Dimer ABG pH POC ABG pO2 ABG pO2 ABG HCO3 ABG O2 Saturation ABG Base Excess ABG Oxyhemoglobin ABG Sodium ABG Chloride ABG Glucose Oxyhemoglobin Carboxyhemoglobin Sodium Potassium Chloride Carbon Dioxide BUN Creatinine Glucose POC Glucose 162 H 179 H Hemoglobin A1c Ferritin AST ALT Alkaline Phosphatase Lactate Dehydrogenase C-Reactive Protein Total Protein Albumin Arterial Blood Glucose Coronavirus (PCR) 05/11/21 05/11/21 05/11/21 17:00 17:33 22:03 WBC MCHC RDW Lymph % (Auto) Lymph # (Auto) Baso # (Auto) Seg Neutrophils % Seg Neuts % (Manual) Lymphocytes % (Manual) Seg Neutrophils # Seg Neutrophils # Man Lymphocytes # (Manual) D-Dimer ABG pH POC ABG pO2 ABG pO2 ABG HCO3 ABG O2 Saturation ABG Base Excess ABG Oxyhemoglobin ABG Sodium ABG Chloride ABG Glucose Oxyhemoglobin Carboxyhemoglobin Sodium 135 L Potassium Chloride 97.3 L Carbon Dioxide BUN 21 H Creatinine 0.3 L Glucose 133 H POC Glucose 140 H 282 H Hemoglobin A1c Ferritin AST ALT 60 H Alkaline Phosphatase Lactate Dehydrogenase C-Reactive Protein Total Protein Albumin 3.1 L Arterial Blood Glucose Coronavirus (PCR) 05/12/21 05/12/21 05/12/21 04:05 04:05 04:05 WBC MCHC RDW 18.4 H Lymph % (Auto) Lymph # (Auto) Baso # (Auto) Seg Neutrophils % Seg Neuts % (Manual) 94.0 H Lymphocytes % (Manual) 4.0 L Seg Neutrophils # Seg Neutrophils # Man Lymphocytes # (Manual) 0.3 L D-Dimer ABG pH POC ABG pO2 ABG pO2 ABG HCO3 ABG O2 Saturation ABG Base Excess ABG Oxyhemoglobin ABG Sodium ABG Chloride ABG Glucose Oxyhemoglobin Carboxyhemoglobin Sodium 136 L Potassium Chloride Carbon Dioxide BUN 18 H Creatinine 0.2 L Glucose 142 H POC Glucose Hemoglobin A1c Ferritin 350.7 H AST ALT Alkaline Phosphatase Lactate Dehydrogenase 546 H C-Reactive Protein Total Protein 6.1 L Albumin 3.0 L Arterial Blood Glucose Coronavirus (PCR) 05/12/21 05/12/21 05/12/21 05:11 11:17 16:27 WBC MCHC RDW Lymph % (Auto) Lymph # (Auto) Baso # (Auto) Seg Neutrophils % Seg Neuts % (Manual) Lymphocytes % (Manual) Seg Neutrophils # Seg Neutrophils # Man Lymphocytes # (Manual) D-Dimer ABG pH POC ABG pO2 ABG pO2 ABG HCO3 ABG O2 Saturation ABG Base Excess ABG Oxyhemoglobin ABG Sodium ABG Chloride ABG Glucose Oxyhemoglobin Carboxyhemoglobin Sodium Potassium Chloride Carbon Dioxide BUN Creatinine Glucose POC Glucose 152 H 190 H 261 H Hemoglobin A1c Ferritin AST ALT Alkaline Phosphatase Lactate Dehydrogenase C-Reactive Protein Total Protein Albumin Arterial Blood Glucose Coronavirus (PCR) 05/12/21 05/13/21 05/13/21 20:55 11:08 21:41 WBC MCHC RDW Lymph % (Auto) Lymph # (Auto) Baso # (Auto) Seg Neutrophils % Seg Neuts % (Manual) Lymphocytes % (Manual) Seg Neutrophils # Seg Neutrophils # Man Lymphocytes # (Manual) D-Dimer ABG pH POC ABG pO2 ABG pO2 ABG HCO3 ABG O2 Saturation ABG Base Excess ABG Oxyhemoglobin ABG Sodium ABG Chloride ABG Glucose Oxyhemoglobin Carboxyhemoglobin Sodium Potassium Chloride Carbon Dioxide BUN Creatinine Glucose POC Glucose 231 H 106 H 174 H Hemoglobin A1c Ferritin AST ALT Alkaline Phosphatase Lactate Dehydrogenase C-Reactive Protein Total Protein Albumin Arterial Blood Glucose Coronavirus (PCR) 05/14/21 05/14/21 05/14/21 00:53 02:23 06:06 WBC MCHC RDW Lymph % (Auto) Lymph # (Auto) Baso # (Auto) Seg Neutrophils % Seg Neuts % (Manual) Lymphocytes % (Manual) Seg Neutrophils # Seg Neutrophils # Man Lymphocytes # (Manual) D-Dimer ABG pH POC ABG pO2 ABG pO2 130.3 H ABG HCO3 30.6 H ABG O2 Saturation ABG Base Excess 4.9 H ABG Oxyhemoglobin ABG Sodium ABG Chloride ABG Glucose Oxyhemoglobin Carboxyhemoglobin Sodium Potassium Chloride Carbon Dioxide BUN Creatinine Glucose POC Glucose 229 H 119 H Hemoglobin A1c Ferritin AST ALT Alkaline Phosphatase Lactate Dehydrogenase C-Reactive Protein Total Protein Albumin Arterial Blood Glucose Coronavirus (PCR) 05/14/21 05/14/21 05/14/21 07:13 07:13 07:13 WBC MCHC RDW Lymph % (Auto) Lymph # (Auto) Baso # (Auto) Seg Neutrophils % Seg Neuts % (Manual) Lymphocytes % (Manual) Seg Neutrophils # Seg Neutrophils # Man Lymphocytes # (Manual) D-Dimer 712.80 H ABG pH POC ABG pO2 ABG pO2 ABG HCO3 ABG O2 Saturation ABG Base Excess ABG Oxyhemoglobin ABG Sodium ABG Chloride ABG Glucose Oxyhemoglobin Carboxyhemoglobin Sodium 133 L Potassium Chloride 95.5 L Carbon Dioxide 32 H BUN Creatinine 0.2 L Glucose 137 H POC Glucose Hemoglobin A1c Ferritin 283.5 H AST ALT 63 H Alkaline Phosphatase Lactate Dehydrogenase 563 H C-Reactive Protein Total Protein 6.1 L Albumin 3.0 L Arterial Blood Glucose Coronavirus (PCR) 05/14/21 05/14/21 05/14/21 12:21 15:33 21:50 WBC MCHC RDW Lymph % (Auto) Lymph # (Auto) Baso # (Auto) Seg Neutrophils % Seg Neuts % (Manual) Lymphocytes % (Manual) Seg Neutrophils # Seg Neutrophils # Man Lymphocytes # (Manual) D-Dimer ABG pH POC ABG pO2 ABG pO2 ABG HCO3 ABG O2 Saturation ABG Base Excess ABG Oxyhemoglobin ABG Sodium ABG Chloride ABG Glucose Oxyhemoglobin Carboxyhemoglobin Sodium Potassium Chloride Carbon Dioxide BUN Creatinine Glucose POC Glucose 143 H 204 H 202 H Hemoglobin A1c Ferritin AST ALT Alkaline Phosphatase Lactate Dehydrogenase C-Reactive Protein Total Protein Albumin Arterial Blood Glucose Coronavirus (PCR) 05/15/21 05/15/21 05/15/21 05:05 11:12 16:39 WBC MCHC RDW Lymph % (Auto) Lymph # (Auto) Baso # (Auto) Seg Neutrophils % Seg Neuts % (Manual) Lymphocytes % (Manual) Seg Neutrophils # Seg Neutrophils # Man Lymphocytes # (Manual) D-Dimer ABG pH POC ABG pO2 ABG pO2 ABG HCO3 ABG O2 Saturation ABG Base Excess ABG Oxyhemoglobin ABG Sodium ABG Chloride ABG Glucose Oxyhemoglobin Carboxyhemoglobin Sodium Potassium Chloride Carbon Dioxide BUN Creatinine Glucose POC Glucose 125 H 201 H 241 H Hemoglobin A1c Ferritin AST ALT Alkaline Phosphatase Lactate Dehydrogenase C-Reactive Protein Total Protein Albumin Arterial Blood Glucose Coronavirus (PCR) 05/15/21 05/16/21 05/16/21 21:31 05:04 10:40 WBC MCHC RDW Lymph % (Auto) Lymph # (Auto) Baso # (Auto) Seg Neutrophils % Seg Neuts % (Manual) Lymphocytes % (Manual) Seg Neutrophils # Seg Neutrophils # Man Lymphocytes # (Manual) D-Dimer ABG pH POC ABG pO2 ABG pO2 ABG HCO3 ABG O2 Saturation ABG Base Excess ABG Oxyhemoglobin ABG Sodium ABG Chloride ABG Glucose Oxyhemoglobin Carboxyhemoglobin Sodium Potassium Chloride Carbon Dioxide BUN Creatinine Glucose POC Glucose 234 H 123 H 231 H Hemoglobin A1c Ferritin AST ALT Alkaline Phosphatase Lactate Dehydrogenase C-Reactive Protein Total Protein Albumin Arterial Blood Glucose Coronavirus (PCR) 05/16/21 05/16/21 05/17/21 18:23 21:29 06:20 WBC MCHC RDW 18.8 H Lymph % (Auto) 10.2 L Lymph # (Auto) 0.8 L Baso # (Auto) Seg Neutrophils % 85.8 H Seg Neuts % (Manual) Lymphocytes % (Manual) Seg Neutrophils # Seg Neutrophils # Man Lymphocytes # (Manual) D-Dimer ABG pH POC ABG pO2 ABG pO2 ABG HCO3 ABG O2 Saturation ABG Base Excess ABG Oxyhemoglobin ABG Sodium ABG Chloride ABG Glucose Oxyhemoglobin Carboxyhemoglobin Sodium Potassium Chloride Carbon Dioxide BUN Creatinine Glucose POC Glucose 266 H 234 H Hemoglobin A1c Ferritin AST ALT Alkaline Phosphatase Lactate Dehydrogenase C-Reactive Protein Total Protein Albumin Arterial Blood Glucose Coronavirus (PCR) 05/17/21 05/17/21 05/17/21 06:20 11:06 16:36 WBC MCHC RDW Lymph % (Auto) Lymph # (Auto) Baso # (Auto) Seg Neutrophils % Seg Neuts % (Manual) Lymphocytes % (Manual) Seg Neutrophils # Seg Neutrophils # Man Lymphocytes # (Manual) D-Dimer ABG pH POC ABG pO2 ABG pO2 ABG HCO3 ABG O2 Saturation ABG Base Excess ABG Oxyhemoglobin ABG Sodium ABG Chloride ABG Glucose Oxyhemoglobin Carboxyhemoglobin Sodium Potassium Chloride Carbon Dioxide 33 H BUN Creatinine 0.2 L Glucose 101 H POC Glucose 209 H 180 H Hemoglobin A1c Ferritin AST ALT Alkaline Phosphatase Lactate Dehydrogenase C-Reactive Protein Total Protein Albumin Arterial Blood Glucose Coronavirus (PCR) 05/17/21 05/18/21 05/18/21 21:06 12:00 15:06 WBC MCHC RDW Lymph % (Auto) Lymph # (Auto) Baso # (Auto) Seg Neutrophils % Seg Neuts % (Manual) Lymphocytes % (Manual) Seg Neutrophils # Seg Neutrophils # Man Lymphocytes # (Manual) D-Dimer 874.02 H ABG pH POC ABG pO2 ABG pO2 ABG HCO3 ABG O2 Saturation ABG Base Excess ABG Oxyhemoglobin ABG Sodium ABG Chloride ABG Glucose Oxyhemoglobin Carboxyhemoglobin Sodium Potassium Chloride Carbon Dioxide BUN Creatinine Glucose POC Glucose 256 H 139 H Hemoglobin A1c Ferritin AST ALT Alkaline Phosphatase Lactate Dehydrogenase C-Reactive Protein Total Protein Albumin Arterial Blood Glucose Coronavirus (PCR) 05/18/21 05/18/21 05/18/21 15:06 15:06 16:08 WBC MCHC RDW Lymph % (Auto) Lymph # (Auto) Baso # (Auto) Seg Neutrophils % Seg Neuts % (Manual) Lymphocytes % (Manual) Seg Neutrophils # Seg Neutrophils # Man Lymphocytes # (Manual) D-Dimer ABG pH POC ABG pO2 ABG pO2 ABG HCO3 ABG O2 Saturation ABG Base Excess ABG Oxyhemoglobin ABG Sodium ABG Chloride ABG Glucose Oxyhemoglobin Carboxyhemoglobin Sodium Potassium Chloride Carbon Dioxide BUN Creatinine Glucose POC Glucose 178 H Hemoglobin A1c Ferritin 289.6 H AST ALT Alkaline Phosphatase Lactate Dehydrogenase 605 H C-Reactive Protein Total Protein Albumin Arterial Blood Glucose Coronavirus (PCR) 05/18/21 05/19/21 05/19/21 21:22 11:57 15:26 WBC MCHC RDW Lymph % (Auto) Lymph # (Auto) Baso # (Auto) Seg Neutrophils % Seg Neuts % (Manual) Lymphocytes % (Manual) Seg Neutrophils # Seg Neutrophils # Man Lymphocytes # (Manual) D-Dimer ABG pH POC ABG pO2 ABG pO2 ABG HCO3 ABG O2 Saturation ABG Base Excess ABG Oxyhemoglobin ABG Sodium ABG Chloride ABG Glucose Oxyhemoglobin Carboxyhemoglobin Sodium Potassium Chloride Carbon Dioxide BUN Creatinine Glucose POC Glucose 241 H 201 H 209 H Hemoglobin A1c Ferritin AST ALT Alkaline Phosphatase Lactate Dehydrogenase C-Reactive Protein Total Protein Albumin Arterial Blood Glucose Coronavirus (PCR) 05/19/21 05/20/21 05/20/21 20:59 07:38 08:01 WBC MCHC RDW 19.7 H Lymph % (Auto) 8.3 L Lymph # (Auto) 0.8 L Baso # (Auto) Seg Neutrophils % 88.6 H Seg Neuts % (Manual) Lymphocytes % (Manual) Seg Neutrophils # 8.4 H Seg Neutrophils # Man Lymphocytes # (Manual) D-Dimer ABG pH POC ABG pO2 ABG pO2 ABG HCO3 ABG O2 Saturation ABG Base Excess ABG Oxyhemoglobin ABG Sodium ABG Chloride ABG Glucose Oxyhemoglobin Carboxyhemoglobin Sodium Potassium Chloride Carbon Dioxide BUN Creatinine Glucose POC Glucose 226 H 130 H Hemoglobin A1c Ferritin AST ALT Alkaline Phosphatase Lactate Dehydrogenase C-Reactive Protein Total Protein Albumin Arterial Blood Glucose Coronavirus (PCR) 05/20/21 05/20/21 05/20/21 08:01 11:00 16:43 WBC MCHC RDW Lymph % (Auto) Lymph # (Auto) Baso # (Auto) Seg Neutrophils % Seg Neuts % (Manual) Lymphocytes % (Manual) Seg Neutrophils # Seg Neutrophils # Man Lymphocytes # (Manual) D-Dimer ABG pH POC ABG pO2 ABG pO2 ABG HCO3 ABG O2 Saturation ABG Base Excess ABG Oxyhemoglobin ABG Sodium ABG Chloride ABG Glucose Oxyhemoglobin Carboxyhemoglobin Sodium Potassium Chloride Carbon Dioxide BUN 18 H Creatinine 0.2 L Glucose 132 H POC Glucose 237 H 240 H Hemoglobin A1c Ferritin AST ALT Alkaline Phosphatase Lactate Dehydrogenase C-Reactive Protein Total Protein Albumin Arterial Blood Glucose Coronavirus (PCR) 05/20/21 05/21/21 05/21/21 21:21 07:35 11:32 WBC MCHC RDW Lymph % (Auto) Lymph # (Auto) Baso # (Auto) Seg Neutrophils % Seg Neuts % (Manual) Lymphocytes % (Manual) Seg Neutrophils # Seg Neutrophils # Man Lymphocytes # (Manual) D-Dimer ABG pH POC ABG pO2 ABG pO2 ABG HCO3 ABG O2 Saturation ABG Base Excess ABG Oxyhemoglobin ABG Sodium ABG Chloride ABG Glucose Oxyhemoglobin Carboxyhemoglobin Sodium Potassium Chloride Carbon Dioxide BUN Creatinine Glucose POC Glucose 241 H 162 H 171 H Hemoglobin A1c Ferritin AST ALT Alkaline Phosphatase Lactate Dehydrogenase C-Reactive Protein Total Protein Albumin Arterial Blood Glucose Coronavirus (PCR) 05/21/21 05/21/21 05/22/21 16:22 20:43 05:14 WBC MCHC RDW Lymph % (Auto) Lymph # (Auto) Baso # (Auto) Seg Neutrophils % Seg Neuts % (Manual) Lymphocytes % (Manual) Seg Neutrophils # Seg Neutrophils # Man Lymphocytes # (Manual) D-Dimer ABG pH POC ABG pO2 ABG pO2 ABG HCO3 ABG O2 Saturation ABG Base Excess ABG Oxyhemoglobin ABG Sodium ABG Chloride ABG Glucose Oxyhemoglobin Carboxyhemoglobin Sodium Potassium Chloride Carbon Dioxide BUN Creatinine Glucose POC Glucose 244 H 299 H 140 H Hemoglobin A1c Ferritin AST ALT Alkaline Phosphatase Lactate Dehydrogenase C-Reactive Protein Total Protein Albumin Arterial Blood Glucose Coronavirus (PCR) 05/22/21 05/22/21 08:45 11:54 WBC MCHC RDW Lymph % (Auto) Lymph # (Auto) Baso # (Auto) Seg Neutrophils % Seg Neuts % (Manual) Lymphocytes % (Manual) Seg Neutrophils # Seg Neutrophils # Man Lymphocytes # (Manual) D-Dimer ABG pH POC ABG pO2 ABG pO2 ABG HCO3 ABG O2 Saturation ABG Base Excess ABG Oxyhemoglobin ABG Sodium ABG Chloride ABG Glucose Oxyhemoglobin Carboxyhemoglobin Sodium Potassium Chloride Carbon Dioxide BUN Creatinine Glucose POC Glucose 133 H 265 H Hemoglobin A1c Ferritin AST ALT Alkaline Phosphatase Lactate Dehydrogenase C-Reactive Protein Total Protein Albumin Arterial Blood Glucose Coronavirus (PCR)
--- NOTE | 2021-05-22 16:35 | Progress Note ---
Assessment and Plan 50-year-old female past medical history obesity, GERD, hyperlipidemia brought to the hospital due to shortness of breath, fevers, malaise, typical Covid symptoms for approximate 1 week prior to admission and was progressively worse since on set. She is found to have saturations of 86% on presentation. Afebrile since admission with a white count 7.5. Covid test was positive positive along with normal renal function and normal procalcitonin. Chest x-ray: Bilateral pneumonia. Patient initiated on Covid protocol, ID and pulmonary care following Assessment and plan: --Acute hypoxic resp failure due to covid19 -S/p BiPAP, now discontinued -Currently on high per nasal cannula at flow rate 40 L/min along with nonrebreather -See RT notes for titration -Albuterol as needed -Pulmonary hygiene -Pulmonology following CTA chest ordered, patient could not tolerate --covid19 pna; sepsis; -zinc/vitC/D -methylpred 125 mg every 8; wean as appropriate -Infectious disease consulted, -S/p Actemra and remdesivir -Trend temperature and WBC curve -Follow culture data --Oral candidiasis Nystatin solution ordered. -- hyponatremia -Trend BMP -Replace electrolytes as needed -Monitor intake and output -- coagulopathy of covid; on AC -Subcu heparin -Trend CBC -Transfuse for hemoglobin less than 7 -Bilateral lower extremity Doppler ultrasounds negative for DVT ; no CTA or VQ scan to rule out PE -- hyperglycemia; obesity -glargine HS -SSI AC/HS -Avoid hypoglycemia -- risk for protein gisella malnutrition given inc metabolic demand with resp insufficiency -TPN earlier in hospital admission due to BiPAP however now patient is tolerating p.o. -Patient on a GI soft diet with aspiration precautions -Nutrition following -Bowel regimen: Colace, senna, MiraLAX -PPI --Anxiety Likely due to severe hypoxia -Follows commands and RAY -PRN pain and anxiety meds -Patient is Kiswahili-speaking but understands Faroese --viral conjunctivitis right eye: -Right eye- s/p 5 d course of cipro drops. suspect viral conjunctivitis. lubricating eye drops. supportive management. --Septic shock -S/p pressors now discontinued -MAP goal 65 -Pressure monitor per protocol --DVT prophylaxis, per hospital protocol Hospital course to date: 04/17: Patient seen and examined, still uncomfortable with Hypoxic respiratory failure and on oxygen, will continue to steroids therapy, start patient on Remdesivir, ID consulted, Pulmonary consult placed. 04/18: Patient seen and examined, she is currently being changed to High flow NC due to worsening HYPOXIA, will transfer to IMCU, Pulmonary and ID following. Will also give a dose of Lasix today. Monitor Inflammatory markers. 04/19: Patient seen and examined still on high flow due to hypoxia. Appears a bit more comfortable today than yesterday. Cough has decreased in frequency. We will continue high dose Dexameathasone to complete 10 days. continue on Remdesivir 200 mg IV q day x 1 followed by 100 mg IV q day x 4 days -Obtain q48-72h inflammatory markers - ferritin, Ddimer, CRP, LDH Will also give lasix daily for the next 3 days and monitor renal function. Family updated. Continue prone positioning as tolerated 04/20: Patient has some desaturation episodes yesterday was placed on BiPAP. Discussed with ICU team for bed availability for patient to be transferred up. Continue prone position as tolerated. 04/21: Patient remains with profound hypoxia secondary to COVID pneumonia. -Continue steroids -Continue remedesir -S/P Actmera 04/22: Patient remains on steroids and remdesivir. ABG shows persistent hypoxia. We will continue current management additional trial of Lasix for the next few days to see if any improvement. Monitor inflammatory markers as needed. Prognosis is guarded remains on high flow 04/23; patient was treated with remdesivir and Actemra. Continue steroid. Patient's prognosis is guarded. 04/24; patient is on steroid. Patient is currently on BiPAP. Prognosis is guarded. Pulmonary is following. Patient was given Lasix and Ativan. 04/25; continue steroid. Patient was on 40 L of high flow oxygen with saturation was 88%. Pulmonary is following. Prognosis is guarded. Patient was given lasix and ativan. 04/26; patient is on BiPAP and Precedex. Prognosis is guarded. 04/27; patient is on BiPAP and Precedex. Patient will finish steroid today and will start on Solu-Medrol tomorrow. Prognosis is guarded. Blood pressure is better today. Hold Lasix. 04/28 patient is on 100 Fio2 via BIPAP. moderately dyspneic, pulmonary note reviewed, lab results reviewed 04/29 no acute events- see systems review above 04/30 no acute events overnight - on airvo today- TPN started -see systems review above - no acute events overnight- tolerating airvo- see systems review above 05-02 no acute events overnight; tolerating airvo this AM- see systems review above 05/03: Patient has shown remarkable improvement, weaned down to 3 L and satting 95%. Will attempt to walk test today in anticipation for discharge tomorrow. Discussed with PT team to walk the patient today also. 05/04: Patient appears to have had a decline he was down to 3 L satting 95% with anticipation for discharge today but desatted down to 85% on room air and only 88% on 5 L he is now back at 8 L. I encourage incentive spirometer. While he is on Xarelto and has completed the severe steroids which was subsequently changed to Solu-Medrol I will go ahead and order a CTA to make sure that there is not a failure of Xarelto. We will continue to wean as tolerated discussed with nursing staff at bedside. 05/05/21 Patient is on 40 L of oxygen with 80% FiO2. Patient is encouraged to turn to the side more frequently. Patient is denied any shortness of breath and coughing. No other complaints. Follow the CT scan of the chest. Status post remdesivir and Actemra.Solu-Medrol 40 mg IV every 8 hours. Continue current management. Pulmonary follow-up. 05/06: Patient remains on high flow nasal cannula but states that she feels slightly better with the help of translation from her cousin Aspen. Patient is still awaiting a bed on the floor. Patient diet is being tolerated now so we will stop TPN will be stopped tonight. 05/07/2021: Patient remains on 40 L/min oxygen at 90% FiO2. Attempt made for CTA chest to rule out pulmonary embolism however patient desatted while at CT. Study was aborted, will reattempt again tomorrow. will follow along with renetta bertrand. Discussed/updated patient and patient's daughter over phone regarding any active clinical issues. Patient only complaint is oral pain from oral candidia sis noted on exam. Nystatin oral solution ordered. Daughter also voiced concern over patient eye drops which she stated that patient needed to restart from home. However she did not remember name of drops. advised daughter to call our hospital with drop name and dosing and we will restart. 05/08/2021: Started anticoagulation with Lovenox yesterday. Awaiting CTA chest completion. Will attempt to de-escalate oxygen as patient tolerates 05/09/2021: Continues to have high O2 requirements. CTA chest aborted due to patient not being able to tolerate transport to and from scanner. Will follow pulmonology recommendations 05/10/2021: Steroids increased yesterday to 125 mg every 8 hour. Continuing full dose anticoagulation. Respiratory status still remains challenging as it is difficult to wean patient off of hifnc. Minimal improvement compared to last few days. Plan to prone patient today. Otherwise: Some improvement in eye symptoms compared to yesterday. Will order more lubricating eye drops 05/11/2021: Still requires high flow nasal cannula, FiO2 de-escalated to 85%.. Encourage continued proning, patient care team aware. Continue with steroids, anticoagulation, antibiotics. 05/12/2021: High flow nasal cannula remains at flow rate 35 L/min and FiO2 of 85%. Patient appears more comfortable today. Started insulin regimen due to hyperglycemia likely multifactorial in the setting of underlying diabetes and high-dose steroids. Continue to encourage patient to prone. Discussed with pulmonology regarding patient underlying anxiety. We both agreed that low-dose BuSpar might be beneficial for the patient. 05/13/2020: hypoxic resp distress overnight. cpap ordered. Current settings on encounter 30/04 at 100% FIO2. Advised care (RN, RT, PT) team to continue to aggressively work with patient as far as proning. Patient can sit at side of bed and rest on bedside tray w/ pillow in "Rodin's thinker pose". continue high dose steroids, PRN ativan for anxiety, Buspar noted in pulm recs. 05/14/21: Patient remains on 100% O2 with high flow. Follow inflammatory markers, wean FiO2 as tolerated, guarded prognosis 05/15: Patient on 40 L high flow O2 today-requiring nonrebreather intermittently, continue to follow inflammatory markers and wean off O2 as tolerated, guarded prognosis. 05/16:-Remains on high flow O2 along with nonrebreather, continue to follow inflammatory markers and wean off O2 as tolerated, pulmonary and ID following. Guarded prognosis, patient requiring higher concentration of O2 and unable to wean off. 05/17: Persistently recurring higher concentration O2. Patient on both high flow oxygen and nonrebreather. Poor prognosis, continue to follow inflammatory markers. ID and pulmonary care following. Updated family. 05/18: Patient remains on nonrebreather and high flow O2, Prone if possible. Wean FiO2 for sats >88%. Prognosis is very very guarded. Follow inflammatory markers. 05/19: Wean FiO2 for sats >88%. Patient remains on nonrebreather and high flow O2, Prone if possible. Follow inflammatory markers. Prognosis is very very guarded. 05/20: Patient remains on high flow O2 along with nonrebreather. Guarded prognosis. Wean off O2 as tolerated. Pulmonary and ID following 05/21: Clinically very poor prognosis. Patient continuously requiring high flow O2 along with nonrebreather. Updated daughter with all clinical details. Foll ow BMP, follow inflammatory markers. Wean off O2 as tolerated. 05/22: Remains on nonrebreather and high flow O2. Continue to monitor clinically, guarded prognosis. Continue to follow inflammatory markers. ID and pulmonary also following. Subjective Date of service: 05/22/21 Principal diagnosis: Covid-19 Interval history: Patient seen and examined. Medical records and medication list reviewed. No acute event overnight noted by the RN. Patient remains on high flow O2 along with nonrebreather. Patient is tolerating diet. Discussed plan of care at bedside with patient. Objective - Exam Narrative Exam: Limited physical exam due to COVID-19 pandemic to minimize transmission of the disease and to preserve PPE. Vital reviewed and stable. GENERAL: well-developed well-nourished lying on bed appeared to be in no discomfort. HEENT: Normocephalic. Atraumatic. Right eye congestion NECK: Supple. CHEST/LUNGS: breathing on high flow O2 with nonrebreather HEART/CARDIOVASCULAR: Heart rate stable on telemetry ABDOMEN: Visibly not distended SKIN: There is no rash NEURO: No focal motor deficit. Follows command. MUSCULOSKELETAL: No joint effusion EXTRIMITY: No swelling, no cyanosis or clubbing. PSYCH: Cooperative. - Constitutional Vitals: Vital Signs - 12hr 05/22/21 05/22/21 05/22/21 05:12 11:52 11:53 Temperature 98.2 F 98.5 F Pulse Rate 65 98 H Respiratory 18 28 H Rate Blood Pressure 105/65 124/67 O2 Sat by Pulse 98 97 97 Oximetry 05/22/21 16:20 Temperature 98.9 F Pulse Rate 80 Respiratory 24 Rate Blood Pressure 110/54 O2 Sat by Pulse 96 Oximetry - Labs CBC & Chem 7: 05/20/21 08:01 05/20/21 08:01 Labs: Abnormal lab results 05/21/21 05/22/21 05/22/21 Range/Units 20:43 05:14 08:45 POC Glucose 299 H 140 H 133 H (70-105) mg/dL 05/22/21 Range/Units 11:54 POC Glucose 265 H (70-105) mg/dL
[2021-05-22] MEDS: ENOXAPARIN 40 MG/0.4 ML INJ SUB-Q SCH (22:46)
[2021-05-22] MEDS: SENNOSIDES 8.6 MG TAB PO SCH (22:47)
[2021-05-23] MEDS: LORazepam 2 MG/ML VIAL IV SCH ×4 (05:35→17:40)
[2021-05-23] MEDS: methylPREDNISolone Sod Succinate 125 MG/2 ML INJ IV SCH ×2 (05:51→16:41)
--- NOTE | 2021-05-23 08:11 | Progress Note ---
Assessment and Plan -Acute hypoxic resp failure due to covid19 -S/p BiPAP, now discontinued -Currently on high per nasal cannula at flow rate 30L/min along with nonrebreather I think we can titrate more aggressively. -See RT notes for titration -Albuterol as needed -Pulmonary hygiene -Pulmonology following CTA chest ordered, patient could not tolerate --covid19 pna; sepsis; -zinc/vitC/D -methylpred 125 mg every 8; wean as appropriate -Infectious disease consulted, -S/p Actemra and remdesivir -Trend temperature and WBC curve -Follow culture data --Oral candidiasis Nystatin solution ordered. Resolving. -- hyponatremia -Last 24 hours -125 -Trend BMP -Replace electrolytes as needed Follow-up labs replace today. -Monitor intake and output -- coagulopathy of covid; on AC -Subcu heparin -Trend CBC -Transfuse for hemoglobin less than 7 -Bilateral lower extremity Doppler ultrasounds negative for DVT ; no CTA or VQ scan to rule out PE -- hyperglycemia; obesity -glargine HS -SSI AC/HS -Avoid hypoglycemia -- risk for protein gisella malnutrition given inc metabolic demand with resp insufficiency -TPN earlier in hospital admission due to BiPAP however now patient is tolerating p.o. -Patient on a GI soft diet with aspiration precautions -Nutrition following -Bowel regimen: Colace, senna, MiraLAX -PPI --Anxiety Likely due to severe hypoxia -Follows commands and RAY -PRN pain and anxiety meds -Patient is Armenian-speaking but understands [place] Zealander --viral conjunctivitis right eye: Resolved -Right eye- s/p 5 d course of cipro drops. suspect viral conjunctivitis. lubricating eye drops. supportive management. --Septic shock- resolved -S/p pressors now discontinued -MAP goal 65 -Pressure monitor per protocol Subjective Date of service: 05/23/21 Principal diagnosis: Covid-19 Interval history: Assessment and Plan 50-year-old female past medical history obesity, GERD, hyperlipidemia brought to the hospital due to shortness of breath, fevers, malaise, typical Covid symptoms for approximate 1 week prior to admission and was progressively worse since onset. She is found to have saturations of 86% on presentation. Afebrile since admission with a white count 7.5. Covid test was positive positive along with normal renal function and normal procalcitonin. Chest x-ray: Bilateral pneumonia. Patient initiated on Covid protocol, ID and pulmonary care following 04/17: Patient seen and examined, still uncomfortable with Hypoxic respiratory failure and on oxygen, will continue to steroids therapy, start patient on Remdesivir, ID consulted, Pulmonary consult placed. 04/18: Patient seen and examined, she is currently being changed to High flow NC due to worsening HYPOXIA, will transfer to IMCU, Pulmonary and ID following. Will also give a dose of Lasix today. Monitor Inflammatory markers. 04/19: Patient seen and examined still on high flow due to hypoxia. Appears a bit more comfortable today than yesterday. Cough has decreased in frequency. We will continue high dose Dexameathasone to complete 10 days. continue on Remdesivir 200 mg IV q day x 1 followed by 100 mg IV q day x 4 days -Obtain q48-72h inflammatory markers - ferritin, Ddimer, CRP, LDH Will also give lasix daily for the next 3 days and monitor renal function. Family updated. Continue prone positioning as tolerated 04/20: Patient has some desaturation episodes yesterday was placed on BiPAP. Discussed with ICU team for bed availability for patient to be transferred up. Continue prone position as tolerated. 04/21: Patient remains with profound hypoxia secondary to COVID pneumonia. -Continue steroids -Continue remedesir -S/P Actmera 04/22: Patient remains on steroids and remdesivir. ABG shows persistent hypoxia. We will continue current management additional trial of Lasix for the next few days to see if any improvement. Monitor inflammatory markers as needed. Prognosis is guarded remains on high flow 04/23; patient was treated with remdesivir and Actemra. Continue steroid. Patient's prognosis is guarded. 04/24; patient is on steroid. Patient is currently on BiPAP. Prognosis is guarded. Pulmonary is following. Patient was given Lasix and Ativan. 04/25; continue steroid. Patient was on 40 L of high flow oxygen with saturation was 88%. Pulmonary is following. Prognosis is guarded. Patient was given lasix and ativan. 04/26; patient is on BiPAP and Precedex. Prognosis is guarded. 04/27; patient is on BiPAP and Precedex. Patient will finish steroid today and will start on Solu-Medrol tomorrow. Prognosis is guarded. Blood pressure is better today. Hold Lasix. 04/28 patient is on 100 Fio2 via BIPAP. moderately dyspneic, pulmonary note reviewed, lab results reviewed 04/29 no acute events- see systems review above 04/30 no acute events overnight - on airvo today- TPN started -see systems review above 05-01 no acute events overnight- tolerating airvo- see systems review above 05-02 no acute events overnight; tolerating airvo this AM- see systems review above 05/03: Patient has shown remarkable improvement, weaned down to 3 L and satting 95%. Will attempt to walk test today in anticipation for discharge tomorrow. Discussed with PT team to walk the patient today also. 05/04: Patient appears to have had a decline he was down to 3 L satting 95% with anticipation for discharge today but desatted down to 85% on room air and only 88% on 5 L he is now back at 8 L. I encourage incentive spirometer. While he is on Xarelto and has completed the severe steroids which was subsequently changed to Solu-Medrol I will go ahead and order a CTA to make sure that there is not a failure of Xarelto. We will continue to wean as tolerated discussed with nursing staff at bedside. 05/05/21 Patient is on 40 L of oxygen with 80% FiO2. Patient is encouraged to turn to the side more frequently. Patient is denied any shortness of breath and coughing. No other complaints. Follow the CT scan of the chest. Status post remdesivir and Actemra.Solu-Medrol 40 mg IV every 8 hours. Continue current m anagement. Pulmonary follow-up. 05/06: Patient remains on high flow nasal cannula but states that she feels slightly better with the help of translation from her cousin Aspen. Patient is still awaiting a bed on the floor. Patient diet is being tolerated now so we will stop TPN will be stopped tonight. 05/07/2021: Patient remains on 40 L/min oxygen at 90% FiO2. Attempt made for CTA chest to rule out pulmonary embolism however patient desatted while at CT. Study was aborted, will reattempt again tomorrow. will follow along with pulphil bertrand. Discussed/updated patient and patient's daughter over phone regarding any active clinical issues. Patient only complaint is oral pain from oral ortiz diasis noted on exam. Nystatin oral solution ordered. Daughter also voiced concern over patient eye drops which she stated that patient needed to restart from home. However she did not remember name of drops. advised daughter to call our hospital with drop name and dosing and we will restart. 05/08/2021: Started anticoagulation with Lovenox yesterday. Awaiting CTA chest completion. Will attempt to de-escalate oxygen as patient tolerates 05/09/2021: Continues to have high O2 requirements. CTA chest aborted due to patient not being able to tolerate transport to and from scanner. Will follow p ulmonology recommendations 05/10/2021: Steroids increased yesterday to 125 mg every 8 hour. Continuing full dose anticoagulation. Respiratory status still remains challenging as it is difficult to wean patient off of hifnc. Minimal improvement compared to last few days. Plan to prone patient today. Otherwise: Some improvement in eye symptoms compared to yesterday. Will order more lubricating eye drops 05/11/2021: Still requires high flow nasal cannula, FiO2 de-escalated to 85%.. Encourage continued proning, patient care team aware. Continue with steroids, anticoagulation, antibiotics. 05/12/2021: High flow nasal cannula remains at flow rate 35 L/min and FiO2 of 85%. Patient appears more comfortable today. Started insulin regimen due to hyperglycemia likely multifactorial in the setting of underlying diabetes and high-dose steroids. Continue to encourage patient to prone. Discussed with pulmonology regarding patient underlying anxiety. We both agreed that low-dose BuSpar might be beneficial for the patient. 05/13/2020: hypoxic resp distress overnight. cpap ordered. Current settings on encounter 30/04 at 100% FIO2. Advised care (RN, RT, PT) team to continue to aggressively work with patient as far as proning. Patient can sit at side of bed and rest on bedside tray w/ pillow in "Rodin's thinker pose". continue high dose steroids, PRN ativan for anxiety, Buspar noted in pulm recs. 05/14/21: Patient remains on 100% O2 with high flow. Follow inflammatory markers, wean FiO2 as tolerated, guarded prognosis 05/15: Patient on 40 L high flow O2 today-requiring nonrebreather intermittently, continue to follow inflammatory markers and wean off O2 as tolerated, guarded prognosis. 05/16:-Remains on high flow O2 along with nonrebreather, continue to follow inflammatory markers and wean off O2 as tolerated, pulmonary and ID following. Guarded prognosis, patient requiring higher concentration of O2 and unable to wean off. 05/17: Persistently recurring higher concentration O2. Patient on both high flow oxygen and nonrebreather. Poor prognosis, continue to follow inflammatory markers. ID and pulmonary care following. Updated family. 05/18: Patient remains on nonrebreather and high flow O2, Prone if possible. Wean FiO2 for sats >88%. Prognosis is very very guarded. Follow inflammatory markers. 05/19: Wean FiO2 for sats >88%. Patient remains on nonrebreather and high flow O2, Prone if possible. Follow inflammatory markers. Prognosis is very very guarded. 05/20: Patient remains on high flow O2 along with nonrebreather. Guarded prognosis. Wean off O2 as tolerated. Pulmonary and ID following 05/20 patient remains on high flow O2 with nonrebreather. Was not able to tolerate weaning today. Prognosis remains poor. 05/23. Patient remains on high flow O2 with nasal cannula at this time. Did not try to wean patient at all today. Patient was talking on the phone with traffic supervisor and myself in full sentences without hypoxemia. Complained of some n brian stiffness and soreness from laying in bed too long. All questions and concerns answered to patient's satisfaction Objective - Constitutional Vitals: Vital Signs - 12hr 05/22/21 05/22/21 05/23/21 20:51 22:00 02:00 Temperature 98.2 F Pulse Rate 81 Respiratory 22 Rate Blood Pressure 102/46 O2 Sat by Pulse 97 96 99 Oximetry 05/23/21 04:37 Temperature 97.5 F L Pulse Rate 72 Respiratory 24 Rate Blood Pressure 113/65 O2 Sat by Pulse 99 Oximetry General appearance: Present: mild distress - EENT Eyes: PERRL, EOM intact ENT: hearing intact, clear oral mucosa Ears: bilateral: normal - Neck Neck: supple, normal ROM - Respiratory Respiratory effort: normal Respiratory: bilateral: diminished, rales - Breasts Breasts: normal - Cardiovascular Rhythm: regular Heart Sounds: Present: S1 & S2. Absent: gallop, rub Extremities: pulses intact, No edema, normal color, Full ROM - Gastrointestinal General gastrointestinal: Present: soft, non-tender, non-distended, normal bowel sounds - Genitourinary Female genitourinary: normal - Integumentary Integumentary: clear, warm, dry - Musculoskeletal Musculoskeletal: 1, strength equal bilaterally - Neurologic Neurologic: moves all extremities - Psychiatric Psychiatric: memory intact, appropriate mood/affect, intact judgment & insight - Labs CBC & Chem 7: 05/20/21 08:01 05/20/21 08:01 Labs: Abnormal lab results 05/22/21 05/22/21 05/22/21 Range/Units 08:45 11:54 16:15 POC Glucose 133 H 265 H 221 H (70-105) mg/dL 05/22/21 Range/Units 21:43 POC Glucose 262 H (70-105) mg/dL
[2021-05-23] MEDS: INSULIN LISPRO 100 UNIT/ML SUB-Q SCH ×3 (08:52→17:59)
[2021-05-23] MEDS: CHOLECALCIFEROL (VIT D3) 1000 UNIT (25 mcg) TAB PO SCH (10:10)
[2021-05-23] MEDS: DOCUSATE SODIUM 100 MG CAP PO SCH (10:10)
[2021-05-23] MEDS: ZINC SULFATE 220 MG CAP PO SCH (10:10)
[2021-05-23] MEDS: FAMOTIDINE 20 MG TAB PO SCH (10:10)
[2021-05-23] MEDS: ASCORBIC ACID 500 MG TAB PO SCH (10:10)
[2021-05-23] MEDS: POLYETHYLENE GLYCOL 3350 17 GM POWDER PO SCH (10:11)
[2021-05-23] MEDS: INSULIN GLARGINE 100 UNITS/ML SUB-Q SCH (10:11)
[2021-05-23 10:57] LABS: C-Reactive Protein 0.1 mg/dL (0.00-1.30)
[2021-05-23] MEDS: MINERAL OIL/PETROLATUM, WHITE OPHTH OINT 3.5 GM OU SCH (15:59)
[2021-05-24] MEDS: FAMOTIDINE 20 MG TAB PO SCH ×2 (00:21→09:24)
[2021-05-24] MEDS: ENOXAPARIN 40 MG/0.4 ML INJ SUB-Q SCH (00:21)
[2021-05-24] MEDS: INSULIN GLARGINE 100 UNITS/ML SUB-Q SCH ×2 (00:22→13:40)
[2021-05-24] MEDS: SENNOSIDES 8.6 MG TAB PO SCH (00:23)
[2021-05-24] MEDS: DOCUSATE SODIUM 100 MG CAP PO SCH ×2 (00:23→09:23)
[2021-05-24] MEDS: methylPREDNISolone Sod Succinate 125 MG/2 ML INJ IV SCH ×3 (00:23→17:50)
[2021-05-24] MEDS: ZINC SULFATE 220 MG CAP PO SCH ×2 (00:23→09:23)
[2021-05-24] MEDS: INSULIN LISPRO 100 UNIT/ML SUB-Q SCH ×4 (00:24→18:00)
[2021-05-24] MEDS: LORazepam 2 MG/ML VIAL IV SCH ×4 (00:25→18:06)
[2021-05-24] MEDS: MINERAL OIL/PETROLATUM, WHITE OPHTH OINT 3.5 GM OU SCH ×4 (00:26→17:49)
[2021-05-24] MEDS: HYPROMELLOSE 0.5% OPHTH SOLN 15 ML OU PRN (00:33)
[2021-05-24] MEDS: ASCORBIC ACID 500 MG TAB PO SCH (09:24)
[2021-05-24] MEDS: POLYETHYLENE GLYCOL 3350 17 GM POWDER PO SCH (09:24)
[2021-05-24] MEDS: CHOLECALCIFEROL (VIT D3) 1000 UNIT (25 mcg) TAB PO SCH (09:24)
--- NOTE | 2021-05-24 13:38 | Progress Note ---
Assessment and Plan -Acute hypoxic resp failure due to covid19 -S/p BiPAP, now discontinued -Currently on high per nasal cannula at flow rate 30L/min along with nonrebreather I think we can titrate more aggressively. -See RT notes for titration -Albuterol as needed -Pulmonary hygiene -Pulmonology following CTA chest ordered, patient could not tolerate --covid19 pna; sepsis; -zinc/vitC/D -methylpred 125 mg every 8; wean as appropriate -Infectious disease consulted, -S/p Actemra and remdesivir -Trend temperature and WBC curve -Follow culture data --Oral candidiasis Nystatin solution ordered. Resolving. -- hyponatremia -Last 24 hours -125 -Trend BMP -Replace electrolytes as needed Follow-up labs replace today. -Monitor intake and output -- coagulopathy of covid; on AC -Subcu heparin -Trend CBC-no need for transfusion. -Transfuse for hemoglobin less than 7 -Bilateral lower extremity Doppler ultrasounds negative for DVT ; no CTA or VQ scan to rule out PE -- hyperglycemia; [id number] stable at this time. -glargine HS -SSI AC/HS -Avoid hypoglycemia -- risk for protein gisella malnutrition given inc metabolic demand with resp insuff iciency -TPN earlier in hospital admission due to BiPAP however now patient is tolerating p.o. -Patient on a GI soft diet with aspiration precautions -Nutrition following -Bowel regimen: Colace, senna, MiraLAX -PPI --Anxiety Likely due to severe hypoxia Has shown some signs of improvement over the past 24 hours able to wean oxygen some. -Follows commands and RAY -PRN pain and anxiety meds -Patient is Monegasque-speaking but understands Bengali --viral conjunctivitis right eye: Resolved would like drops for her eyes again. States eyes are dry. -Right eye- s/p 5 d course of cipro drops. suspect viral conjunctivitis. lubricating eye drops. supportive management. --Septic shock- resolved -S/p pressors now discontinued -MAP goal 65 -Pressure monitor per protocol Subjective Date of service: 05/24/21 Principal diagnosis: Covid-19 Interval history: Assessment and Plan 50-year-old female past medical history obesity, GERD, hyperlipidemia brought to the hospital due to shortness of breath, fevers, malaise, typical Covid symptoms for approximate 1 week prior to admission and was progressively worse since onset. She is found to have saturations of 86% on presentation. Afebrile since admission with a white count 7.5. Covid test was positive positive along with normal renal function and normal procalcitonin. Chest x-ray: Bilateral pneumonia. Patient initiated on Covid protocol, ID and pulmonary care following 04/17: Patient seen and examined, still uncomfortable with Hypoxic respiratory failure and on oxygen, will continue to steroids therapy, start patient on Remdesivir, ID consulted, Pulmonary consult placed. 04/18: Patient seen and examined, she is currently being changed to High flow NC due to worsening HYPOXIA, will transfer to IMCU, Pulmonary and ID following. Will also give a dose of Lasix today. Monitor Inflammatory markers. 04/19: Patient seen and examined still on high flow due to hypoxia. Appears a bit more comfortable today than yesterday. Cough has decreased in frequency. We will continue high dose Dexameathasone to complete 10 days. continue on Remdesivir 200 mg IV q day x 1 followed by 100 mg IV q day x 4 days -Obtain q48-72h inflammatory markers - ferritin, Ddimer, CRP, LDH Will also give lasix daily for the next 3 days and monitor renal function. Family updated. Continue prone positioning as tolerated 04/20: Patient has some desaturation episodes yesterday was placed on BiPAP. Discussed with ICU team for bed availability for patient to be transferred up. Continue prone position as tolerated. 04/21: Patient remains with profound hypoxia secondary to COVID pneumonia. -Continue steroids -Continue remedesir -S/P Actmera 04/22: Patient remains on steroids and remdesivir. ABG shows persistent hypoxia. We will continue current management additional trial of Lasix for the next few days to see if any improvement. Monitor inflammatory markers as needed. Prognosis is guarded remains on high flow 04/23; patient was treated with remdesivir and Actemra. Continue steroid. Patient's prognosis is guarded. 04/24; patient is on steroid. Patient is currently on BiPAP. Prognosis is guarded. Pulmonary is following. Patient was given Lasix and Ativan. 04/25; continue steroid. Patient was on 40 L of high flow oxygen with saturation was 88%. Pulmonary is following. Prognosis is guarded. Patient was given lasix and ativan. 04/26; patient is on BiPAP and Precedex. Prognosis is guarded. 04/27; patient is on BiPAP and Precedex. Patient will finish steroid today and will start on Solu-Medrol tomorrow. Prognosis is guarded. Blood pressure is better today. Hold Lasix. 04/28 patient is on 100 Fio2 via BIPAP. moderately dyspneic, pulmonary note reviewed, lab results reviewed 04/29 no acute events- see systems review above 04/30 no acute events overnight - on airvo today- TPN started -see systems review above - no acute events overnight- tolerating airvo- see systems review above - no acute events overnight; tolerating airvo this AM- see systems review above 05/03: Patient has shown remarkable improvement, weaned down to 3 L and satting 95%. Will attempt to walk test today in anticipation for discharge tomorrow. Discussed with PT team to walk the patient today also. 05/04: Patient appears to have had a decline he was down to 3 L satting 95% with anticipation for discharge today but desatted down to 85% on room air and only 88% on 5 L he is now back at 8 L. I encourage incentive spirometer. While he is on Xarelto and has completed the severe steroids which was subsequently changed to Solu-Medrol I will go ahead and order a CTA to make sure that there is not a failure of Xarelto. We will continue to wean as tolerated discussed with nursing staff at bedside. 05/05/21 Patient is on 40 L of oxygen with 80% FiO2. Patient is encouraged to turn to the side more frequently. Patient is denied any shortness of breath and coughing. No other complaints. Follow the CT scan of the chest. Status post remdesivir and Actemra.Solu-Medrol 40 mg IV every 8 hours. Continue current management. Pulmonary follow-up. 05/06: Patient remains on high flow nasal cannula but states that she feels slightly better with the help of translation from her cousin Aspen. Patient is still awaiting a bed on the floor. Patient diet is being tolerated now so we will stop TPN will be stopped tonight. 05/07/2021: Patient remains on 40 L/min oxygen at 90% FiO2. Attempt made for CTA chest to rule out pulmonary embolism however patient desatted while at CT. Study was aborted, will reattempt again tomorrow. will follow along with pulm recs. Discussed/updated patient and patient's daughter over phone regarding any active clinical issues. Patient only complaint is oral pain from oral cand idiasis noted on exam. Nystatin oral solution ordered. Daughter also voiced concern over patient eye drops which she stated that patient needed to restart from home. However she did not remember name of drops. advised daughter to call our hospital with drop name and dosing and we will restart. 05/08/2021: Started anticoagulation with Lovenox yesterday. Awaiting CTA chest completion. Will attempt to de-escalate oxygen as patient tolerates 05/09/2021: Continues to have high O2 requirements. CTA chest aborted due to patient not being able to tolerate transport to and from scanner. Will follow pulmonology recommendations 05/10/2021: Steroids increased yesterday to 125 mg every 8 hour. Continuing full dose anticoagulation. Respiratory status still remains challenging as it is difficult to wean patient off of hifnc. Minimal improvement compared to last few days. Plan to prone patient today. Otherwise: Some improvement in eye symptoms compared to yesterday. Will order more lubricating eye drops 05/11/2021: Still requires high flow nasal cannula, FiO2 de-escalated to 85%.. Encourage continued proning, patient care team aware. Continue with steroids, anticoagulation, antibiotics. 05/12/2021: High flow nasal cannula remains at flow rate 35 L/min and FiO2 of 85%. Patient appears more comfortable today. Started insulin regimen due to hyperglycemia likely multifactorial in the setting of underlying diabetes and high-dose steroids. Continue to encourage patient to prone. Discussed with pulmonology regarding patient underlying anxiety. We both agreed that low-dose BuSpar might be beneficial for the patient. 05/13/2020: hypoxic resp distress overnight. cpap ordered. Current settings on encounter 30/04 at 100% FIO2. Advised care (RN, RT, PT) team to continue to aggressively work with patient as far as proning. Patient can sit at side of bed and rest on bedside tray w/ pillow in "Rodin's thinker pose". continue high dose steroids, PRN ativan for anxiety, Buspar noted in pulm recs. 05/14/21: Patient remains on 100% O2 with high flow. Follow inflammatory markers, wean FiO2 as tolerated, guarded prognosis 05/15: Patient on 40 L high flow O2 today-requiring nonrebreather intermittently, continue to follow inflammatory markers and wean off O2 as tolerated, guarded prognosis. 05/16:-Remains on high flow O2 along with nonrebreather, continue to follow inflammatory markers and wean off O2 as tolerated, pulmonary and ID following. Guarded prognosis, patient requiring higher concentration of O2 and unable to wean off. 05/17: Persistently recurring higher concentration O2. Patient on both high flow oxygen and nonrebreather. Poor prognosis, continue to follow inflammatory markers. ID and pulmonary care following. Updated family. 05/18: Patient remains on nonrebreather and high flow O2, Prone if possible. Wean FiO2 for sats >88%. Prognosis is very very guarded. Follow inflammatory markers. 05/19: Wean FiO2 for sats >88%. Patient remains on nonrebreather and high flow O2, Prone if possible. Follow inflammatory markers. Prognosis is very very guarded. 05/20: Patient remains on high flow O2 along with nonrebreather. Guarded prognosis. Wean off O2 as tolerated. Pulmonary and ID following 05/20 patient remains on high flow O2 with nonrebreather. Was not able to tolerate weaning today. Prognosis remains poor. 05/23. Patient remains on high flow O2 with nasal cannula at this time. Did not try to wean patient at all today. Patient was talking on the phone with sound assistant and myself in full sentences without hypoxemia. Complained of some neck stiffness and soreness from laying in bed too long. All questions and concerns answered to patient's satisfaction 05/24/2021. Patient was able to decrease from 30 L to 25 L today. Tolerated dec rease without any difficulty. Patient feels well today. Better today. Tolerated physical therapy today. Spoke with family member through translation. Did not need much because of Monegasque and language. Objective - Constitutional Vitals: Vital Signs - 12hr 05/24/21 05/24/21 05/24/21 02:00 05:14 09:23 Temperature 97.8 F Pulse Rate 72 Respiratory 24 Rate Blood Pressure 104/70 O2 Sat by Pulse 99 96 96 Oximetry General appearance: Present: no acute distress, well-nourished - Labs CBC & Chem 7: 05/20/21 08:01 05/20/21 08:01 Labs: Abnormal lab results 05/23/21 05/23/21 05/24/21 Range/Units 17:24 21:52 07:44 POC Glucose 197 H 289 H 161 H (70-105) mg/dL 05/24/21 Range/Units 11:17 POC Glucose 308 H (70-105) mg/dL
[2021-05-24] MEDS: ACETAMINOPHEN 325 MG TAB PO PRN (13:52)
--- NOTE | 2021-05-24 14:18 | Progress Note ---
Assessment and Plan 50 y/o female with acute respiratory failure secondary to COVID19 pneumonia. 05/24/21: No new recs again for today. Will see as needed over the weekend but follow chart peripherally for changes. 05/22/21: No new recs for today. Prognosis remains guarded. 05/21/21: Wean as tolerated. Prone if able. Guarded prognosis 05/20/21: COntinue current level of care. 05/17/21: Prone if possible. Wean FiO2 for sats >88%. COntinue scheduled ativan. Prognosis is very very guarded. Unfunded so not a candidate for LTACH 05/16/21: Prone if willing. Wean FIO2 if patient will allow. Anxiety control. Prognosis still remains very guarded. 05/15/21: Not sure if MAR is accurate but may have only gotten one dose of scheduled anixolytic therapy. Continue proning as tolerated, and wean FiO2 and flow for sats >88%. Prognosi remains very very guarded to poor. 05/14/21: Will discontinue the buspar and make the ativan scheduled but will do q6 as oppose to q4 and attempt to leave parameters for nursing when not to give. If anxiety could be controlled, feel that patient could be weaned further. She has no funding so she is not a candidate for LTACH. Prone if possible. Guarded prognosis. This is her day. 05/13/21: Ordered buspar 10 BID to start with to help with anxiety. Please continue to wean FiO2 as tolerated. Will remind nurse that there is PRN ativan available. Continue higher doses of steroids. Prone if able. 05/12/21: Patient may need something longer acting for anxiety. Per chart has not gotten any ativan in days. Would be ok with either buspar or low dose klonopin bid. COntinue higher doses of steroids as patient seems to be responding. Prone if possible. 05/11/21: Continue high doses of steroids and continue to wean for sats >88%. Please encourage proning. 05/10/21: Will continue this dose of steroid at least through the weekend and assess for improvement. will speak with RT about aggressive weaning. Full dose anticoagulation continues. Very very guarded to poor prognosis. 05/09/21: Going to consider increasing steroids to 125q8, maybe as early as tomorrow. continue full dose anticoagulation. 05/08/21: Continue anticoagulation and steroids. Prone if possible. Anxiety control. No objection to CTA if this can happen. Very very guarded prognosis. 05/07/21: Spoke with IMS, not opposed to full dose anticoagulation. If patient goes back on NRB HFNC combo may need to consider restarting PPN again. Encourage proning. Guarded prognosis. 05/06/21: Continue to wean FiO2 and flow for sats >88%. Tolerating diet now so will stop PPN. Continue anxiety control. Continue IV steroids. Would not object to transfer to COVID floor if bed available. Not sure why she was titrated back up to 100% from 85 as all sats documented in the RT's notes were acceptable. Same for under vital signs as well. 05/03/21: Set back last night from yesterday. Continue bipap therapy for now and attempt HFNC maybe later this afternoon. Continue to use PRN ativan but may need to schedule as she likely took off mask from anxiety. Continue IV steroids. Hold on transfer to [facility] Floor. 05/02/21: Continue to wean FiO2 as tolerated for sats >88%. Will continue bipap at night. Patient has no funding so not a candidate for LTACH. Given that she has been stable and not requiring the combo of HFNC and NRB, will consider moving to [facility] floor. 05/01/21: Continue to wean FiO2 for sats >88%. A sat of 90 is more than acceptable and oxygen should not be increased for this unless patient desats and remains at a sat lower than 88. Bipap at night to give some form of relief and HFNC during the day. Currently on just this alone which is improvement. Ok with daily diuresis but must monitor renal function and BP closely. She was over diuresed last week and we ended up giving fluid back. Prognosis remains guarded. 04/30/21: Will start CLinimix today for nutritional support, without electrolytes. Check labs in am. Prone if able. Continue precedx for anxiety. Very very guarded prognosis. Attempting our best to not intubate. 04/29/21: Continue precedex. Continue IV solumedrol. Prone if able. Guarded prognosis. 04/28/21: Continue Precedex. Picc team attempting to place line now. Stable on Bipap. Ordered steroids IV solumedrol to start today. Prognosis remains gua rded, still at very high risk for intubation. 04/27/21: Hypotension improving/improved. Hold on any further lasix dosing. Continue precedex to help with anxeity. later today please attempt HFNC with NRB if needed. Attempt to feed if possible. Steroids end today, please order solumedrol 40q8 to start tomorrow (04/28/21). guarded prognosis. 04/26/21: Hypotension today, most likely from precedex use and diuresis that I did the last several days. Will bolus again today. Consider midodrine if BP does not respond. 04/25/21: Lasix again today. Keep PRN ativan for now. Hold on precedex for now. Guarded prognosis. Labs ordered for tomorrow. 04/24/21: Lasix today. Will also start patient on low dose PRN ativan. If this does not help will then try precedex. Guarded prognosis. 04/23/21: Prone as tolerated. No lasix today. Continue decadron. Guarded prognosis. High risk for intubation and high mortality with intubation. 04/19/21: Prone as tolerated during the day and sleep prone at night. Continue IV remdesivir and steroids. Did get actemra. Guarded prognosis. 1. Daily net negative state 2. Prone if possible 3. IV remdesivir. 4. Should be a candidate for Actemra 5. IV steroids 6. Guarded Prognosis Subjective Date of service: 05/24/21 Principal diagnosis: Covid-19 Interval history: Clinically no change Objective Vital Signs - 12hr 05/24/21 05/24/21 05:14 09:23 Temperature 97.8 F Pulse Rate 72 Respiratory 24 Rate Blood Pressure 104/70 O2 Sat by Pulse 96 96 Oximetry Constitutional: no acute distress, alert Eyes: non-icteric ENT: oropharynx moist Neck: supple Effort: normal Ascultation: Bilateral: diminished breath sounds Cardiovascular: regular rate and rhythm Gastrointestinal: normoactive bowel sounds, soft, non-tender, non-distended Integumentary: normal Extremities: no cyanosis, no edema, pink and warm Neurologic: normal mental status, non-focal exam, pupils equal and round, CN II- XII normal Psychiatric: mood appropriate, affect normal CBC and BMP: 05/20/21 08:01 05/20/21 08:01 ABG, PT/INR, D-dimer: ABG ABG pH 7.403 pH Units (7.350-7.450) 05/14/21 02:23 POC ABG pCO2 45.4 mmHg (32.0-48.0) 05/03/21 04:49 ABG pCO2 50.2 mm Hg 05/14/21 02:23 POC ABG pO2 65.3 mmHg (83-108) L 05/03/21 04:49 ABG pO2 130.3 mm Hg (80.0-90.0) H 05/14/21 02:23 POC ABG HCO3 18.5 05/03/21 04:49 ABG O2 Saturation 98.5 % (95.0-99.0) 05/14/21 02:23 PT/INR, D-dimer D-Dimer 910.38 ng/mlDDU (0-234) H 05/23/21 09:50 Abnormal lab findings: Abnormal Labs 04/16/21 04/16/21 04/16/21 11:42 11:42 11:42 WBC MCHC RDW 16.1 H Lymph % (Auto) 7.8 L Lymph # (Auto) 0.8 L Baso # (Auto) Seg Neutrophils % 87.7 H Seg Neuts % (Manual) Lymphocytes % (Manual) Seg Neutrophils # 8.5 H Seg Neutrophils # Man Lymphocytes # (Manual) D-Dimer 338.70 H ABG pH POC ABG pO2 ABG pO2 ABG HCO3 ABG O2 Saturation ABG Base Excess ABG Oxyhemoglobin ABG Sodium ABG Chloride ABG Glucose Oxyhemoglobin Carboxyhemoglobin Sodium Potassium Chloride Carbon Dioxide BUN Creatinine Glucose 194 H POC Glucose Hemoglobin A1c Ferritin AST ALT Alkaline Phosphatase Lactate Dehydrogenase C-Reactive Protein Total Protein 8.4 H Albumin 3.8 L Arterial Blood Glucose Coronavirus (PCR) 04/16/21 04/16/21 04/17/21 11:42 11:42 03:50 WBC MCHC RDW 16.0 H Lymph % (Auto) 7.7 L Lymph # (Auto) 0.6 L Baso # (Auto) Seg Neutrophils % 89.8 H Seg Neuts % (Manual) Lymphocytes % (Manual) Seg Neutrophils # Seg Neutrophils # Man Lymphocytes # (Manual) D-Dimer ABG pH POC ABG pO2 ABG pO2 ABG HCO3 ABG O2 Saturation ABG Base Excess ABG Oxyhemoglobin ABG Sodium ABG Chloride ABG Glucose Oxyhemoglobin Carboxyhemoglobin Sodium Potassium Chloride Carbon Dioxide BUN Creatinine Glucose 195 H POC Glucose Hemoglobin A1c Ferritin 254.3 H AST ALT Alkaline Phosphatase Lactate Dehydrogenase 359 H C-Reactive Protein 15.20 H Total Protein Albumin Arterial Blood Glucose Coronavirus (PCR) 04/17/21 04/17/21 04/17/21 03:50 08:26 08:26 WBC MCHC RDW Lymph % (Auto) Lymph # (Auto) Baso # (Auto) Seg Neutrophils % Seg Neuts % (Manual) Lymphocytes % (Manual) Seg Neutrophils # Seg Neutrophils # Man Lymphocytes # (Manual) D-Dimer 262.48 H ABG pH POC ABG pO2 ABG pO2 ABG HCO3 ABG O2 Saturation ABG Base Excess ABG Oxyhemoglobin ABG Sodium ABG Chloride ABG Glucose Oxyhemoglobin Carboxyhemoglobin Sodium Potassium Chloride Carbon Dioxide BUN 20 H Creatinine 0.5 L Glucose 249 H 225 H POC Glucose Hemoglobin A1c Ferritin AST ALT Alkaline Phosphatase Lactate Dehydrogenase 338 H C-Reactive Protein 17.20 H Total Protein Albumin 3.2 L Arterial Blood Glucose Coronavirus (PCR) 04/17/21 04/17/21 04/17/21 08:26 15:04 Unknown WBC MCHC RDW Lymph % (Auto) Lymph # (Auto) Baso # (Auto) Seg Neutrophils % Seg Neuts % (Manual) Lymphocytes % (Manual) Seg Neutrophils # Seg Neutrophils # Man Lymphocytes # (Manual) D-Dimer ABG pH POC ABG pO2 ABG pO2 ABG HCO3 ABG O2 Saturation ABG Base Excess ABG Oxyhemoglobin ABG Sodium ABG Chloride ABG Glucose Oxyhemoglobin Carboxyhemoglobin Sodium Potassium Chloride Carbon Dioxide BUN 20 H Creatinine 0.5 L Glucose 246 H POC Glucose Hemoglobin A1c Ferritin 392.0 H AST ALT Alkaline Phosphatase Lactate Dehydrogenase C-Reactive Protein Total Protein 8.3 H Albumin 3.1 L Arterial Blood Glucose Coronavirus (PCR) Positive A 04/18/21 04/18/21 04/18/21 05:06 05:06 07:36 WBC 11.6 H MCHC RDW 16.1 H Lymph % (Auto) Lymph # (Auto) Baso # (Auto) Seg Neutrophils % Seg Neuts % (Manual) Lymphocytes % (Manual) Seg Neutrophils # Seg Neutrophils # Man Lymphocytes # (Manual) D-Dimer ABG pH POC ABG pO2 ABG pO2 ABG HCO3 ABG O2 Saturation ABG Base Excess ABG Oxyhemoglobin ABG Sodium ABG Chloride ABG Glucose Oxyhemoglobin Carboxyhemoglobin Sodium Potassium 5.2 H Chloride Carbon Dioxide BUN 22 H Creatinine 0.5 L Glucose 315 H POC Glucose Hemoglobin A1c 8.5 H Ferritin AST ALT Alkaline Phosphatase Lactate Dehydrogenase C-Reactive Protein Total Protein Albumin 3.3 L Arterial Blood Glucose Coronavirus (PCR) 04/18/21 04/18/21 04/18/21 11:59 16:43 23:24 WBC MCHC RDW Lymph % (Auto) Lymph # (Auto) Baso # (Auto) Seg Neutrophils % Seg Neuts % (Manual) Lymphocytes % (Manual) Seg Neutrophils # Seg Neutrophils # Man Lymphocytes # (Manual) D-Dimer ABG pH POC ABG pO2 ABG pO2 ABG HCO3 ABG O2 Saturation ABG Base Excess ABG Oxyhemoglobin ABG Sodium ABG Chloride ABG Glucose Oxyhemoglobin Carboxyhemoglobin Sodium Potassium Chloride Carbon Dioxide BUN Creatinine Glucose POC Glucose 284 H 273 H 290 H Hemoglobin A1c Ferritin AST ALT Alkaline Phosphatase Lactate Dehydrogenase C-Reactive Protein Total Protein Albumin Arterial Blood Glucose Coronavirus (PCR) 04/19/21 04/19/21 04/19/21 04:19 04:19 08:10 WBC MCHC RDW 15.7 H Lymph % (Auto) Lymph # (Auto) Baso # (Auto) Seg Neutrophils % Seg Neuts % (Manual) Lymphocytes % (Manual) Seg Neutrophils # Seg Neutrophils # Man Lymphocytes # (Manual) D-Dimer ABG pH POC ABG pO2 ABG pO2 ABG HCO3 ABG O2 Saturation ABG Base Excess ABG Oxyhemoglobin ABG Sodium ABG Chloride ABG Glucose Oxyhemoglobin Carboxyhemoglobin Sodium Potassium Chloride Carbon Dioxide BUN 27 H Creatinine 0.4 L Glucose 184 H POC Glucose 194 H Hemoglobin A1c Ferritin AST ALT Alkaline Phosphatase Lactate Dehydrogenase C-Reactive Protein Total Protein Albumin 3.1 L Arterial Blood Glucose Coronavirus (PCR) 04/19/21 04/19/21 04/19/21 11:38 16:25 22:04 WBC MCHC RDW Lymph % (Auto) Lymph # (Auto) Baso # (Auto) Seg Neutrophils % Seg Neuts % (Manual) Lymphocytes % (Manual) Seg Neutrophils # Seg Neutrophils # Man Lymphocytes # (Manual) D-Dimer ABG pH POC ABG pO2 ABG pO2 ABG HCO3 ABG O2 Saturation ABG Base Excess ABG Oxyhemoglobin ABG Sodium ABG Chloride ABG Glucose Oxyhemoglobin Carboxyhemoglobin Sodium Potassium Chloride Carbon Dioxide BUN Creatinine Glucose POC Glucose 224 H 297 H 251 H Hemoglobin A1c Ferritin AST ALT Alkaline Phosphatase Lactate Dehydrogenase C-Reactive Protein Total Protein Albumin Arterial Blood Glucose Coronavirus (PCR) 04/20/21 04/20/21 04/20/21 05:28 08:43 16:21 WBC MCHC RDW Lymph % (Auto) Lymph # (Auto) Baso # (Auto) Seg Neutrophils % Seg Neuts % (Manual) Lymphocytes % (Manual) Seg Neutrophils # Seg Neutrophils # Man Lymphocytes # (Manual) D-Dimer ABG pH POC ABG pO2 ABG pO2 ABG HCO3 ABG O2 Saturation ABG Base Excess ABG Oxyhemoglobin ABG Sodium ABG Chloride ABG Glucose Oxyhemoglobin Carboxyhemoglobin Sodium Potassium Chloride Carbon Dioxide BUN 27 H Creatinine Glucose 192 H POC Glucose 173 H 253 H Hemoglobin A1c Ferritin AST ALT Alkaline Phosphatase Lactate Dehydrogenase C-Reactive Protein Total Protein Albumin 3.0 L Arterial Blood Glucose Coronavirus (PCR) 04/21/21 04/21/21 04/21/21 07:58 12:05 16:08 WBC MCHC RDW Lymph % (Auto) Lymph # (Auto) Baso # (Auto) Seg Neutrophils % Seg Neuts % (Manual) Lymphocytes % (Manual) Seg Neutrophils # Seg Neutrophils # Man Lymphocytes # (Manual) D-Dimer ABG pH POC ABG pO2 ABG pO2 ABG HCO3 ABG O2 Saturation ABG Base Excess ABG Oxyhemoglobin ABG Sodium ABG Chloride ABG Glucose Oxyhemoglobin Carboxyhemoglobin Sodium Potassium Chloride Carbon Dioxide BUN Creatinine Glucose POC Glucose 140 H 252 H 214 H Hemoglobin A1c Ferritin AST ALT Alkaline Phosphatase Lactate Dehydrogenase C-Reactive Protein Total Protein Albumin Arterial Blood Glucose Coronavirus (PCR) 04/21/21 04/22/21 04/22/21 21:42 08:37 12:01 WBC MCHC RDW Lymph % (Auto) Lymph # (Auto) Baso # (Auto) Seg Neutrophils % Seg Neuts % (Manual) Lymphocytes % (Manual) Seg Neutrophils # Seg Neutrophils # Man Lymphocytes # (Manual) D-Dimer ABG pH 7.457 H POC ABG pO2 49.4 L ABG pO2 ABG HCO3 ABG O2 Saturation ABG Base Excess ABG Oxyhemoglobin 85.6 L ABG Sodium ABG Chloride ABG Glucose 121 H Oxyhemoglobin Carboxyhemoglobin 0.3 L Sodium Potassium Chloride Carbon Dioxide BUN Creatinine Glucose POC Glucose 162 H 227 H Hemoglobin A1c Ferritin AST ALT Alkaline Phosphatase Lactate Dehydrogenase C-Reactive Protein Total Protein Albumin Arterial Blood Glucose 121 H Coronavirus (PCR) 04/22/21 04/22/21 04/23/21 16:26 22:23 04:52 WBC MCHC RDW 15.7 H Lymph % (Auto) Lymph # (Auto) Baso # (Auto) Seg Neutrophils % Seg Neuts % (Manual) Lymphocytes % (Manual) Seg Neutrophils # Seg Neutrophils # Man Lymphocytes # (Manual) D-Dimer ABG pH POC ABG pO2 ABG pO2 ABG HCO3 ABG O2 Saturation ABG Base Excess ABG Oxyhemoglobin ABG Sodium ABG Chloride ABG Glucose Oxyhemoglobin Carboxyhemoglobin Sodium Potassium Chloride Carbon Dioxide BUN Creatinine Glucose POC Glucose 200 H 136 H Hemoglobin A1c Ferritin AST ALT Alkaline Phosphatase Lactate Dehydrogenase C-Reactive Protein Total Protein Albumin Arterial Blood Glucose Coronavirus (PCR) 04/23/21 04/23/21 04/23/21 04:52 12:06 17:41 WBC MCHC RDW Lymph % (Auto) Lymph # (Auto) Baso # (Auto) Seg Neutrophils % Seg Neuts % (Manual) Lymphocytes % (Manual) Seg Neutrophils # Seg Neutrophils # Man Lymphocytes # (Manual) D-Dimer ABG pH POC ABG pO2 ABG pO2 ABG HCO3 ABG O2 Saturation ABG Base Excess ABG Oxyhemoglobin ABG Sodium ABG Chloride ABG Glucose Oxyhemoglobin Carboxyhemoglobin Sodium 136 L Potassium Chloride 97.7 L Carbon Dioxide BUN 23 H Creatinine Glucose 101 H POC Glucose 202 H 169 H Hemoglobin A1c Ferritin AST 46 H ALT Alkaline Phosphatase Lactate Dehydrogenase C-Reactive Protein Total Protein Albumin 3.3 L Arterial Blood Glucose Coronavirus (PCR) 04/23/21 04/24/21 04/24/21 23:08 05:17 08:38 WBC MCHC RDW Lymph % (Auto) Lymph # (Auto) Baso # (Auto) Seg Neutrophils % Seg Neuts % (Manual) Lymphocytes % (Manual) Seg Neutrophils # Seg Neutrophils # Man Lymphocytes # (Manual) D-Dimer ABG pH POC ABG pO2 ABG pO2 ABG HCO3 ABG O2 Saturation ABG Base Excess ABG Oxyhemoglobin ABG Sodium ABG Chloride ABG Glucose Oxyhemoglobin Carboxyhemoglobin Sodium Potassium Chloride Carbon Dioxide BUN Creatinine Glucose POC Glucose 111 H 108 H 126 H Hemoglobin A1c Ferritin AST ALT Alkaline Phosphatase Lactate Dehydrogenase C-Reactive Protein Total Protein Albumin Arterial Blood Glucose Coronavirus (PCR) 04/24/21 04/24/21 04/24/21 11:54 17:57 21:23 WBC MCHC RDW Lymph % (Auto) Lymph # (Auto) Baso # (Auto) Seg Neutrophils % Seg Neuts % (Manual) Lymphocytes % (Manual) Seg Neutrophils # Seg Neutrophils # Man Lymphocytes # (Manual) D-Dimer ABG pH POC ABG pO2 ABG pO2 ABG HCO3 ABG O2 Saturation ABG Base Excess ABG Oxyhemoglobin ABG Sodium ABG Chloride ABG Glucose Oxyhemoglobin Carboxyhemoglobin Sodium Potassium Chloride Carbon Dioxide BUN Creatinine Glucose POC Glucose 147 H 177 H 138 H Hemoglobin A1c Ferritin AST ALT Alkaline Phosphatase Lactate Dehydrogenase C-Reactive Protein Total Protein Albumin Arterial Blood Glucose Coronavirus (PCR) 04/25/21 04/25/21 04/25/21 07:06 11:23 15:43 WBC MCHC RDW Lymph % (Auto) Lymph # (Auto) Baso # (Auto) Seg Neutrophils % Seg Neuts % (Manual) Lymphocytes % (Manual) Seg Neutrophils # Seg Neutrophils # Man Lymphocytes # (Manual) D-Dimer ABG pH POC ABG pO2 ABG pO2 ABG HCO3 ABG O2 Saturation ABG Base Excess ABG Oxyhemoglobin ABG Sodium ABG Chloride ABG Glucose Oxyhemoglobin Carboxyhemoglobin Sodium Potassium Chloride Carbon Dioxide BUN Creatinine Glucose POC Glucose 147 H 169 H 227 H Hemoglobin A1c Ferritin AST ALT Alkaline Phosphatase Lactate Dehydrogenase C-Reactive Protein Total Protein Albumin Arterial Blood Glucose Coronavirus (PCR) 04/25/21 04/26/21 04/26/21 21:22 02:45 05:15 WBC MCHC RDW Lymph % (Auto) Lymph # (Auto) Baso # (Auto) Seg Neutrophils % Seg Neuts % (Manual) Lymphocytes % (Manual) Seg Neutrophils # Seg Neutrophils # Man Lymphocytes # (Manual) D-Dimer ABG pH POC ABG pO2 70.7 L ABG pO2 ABG HCO3 ABG O2 Saturation ABG Base Excess ABG Oxyhemoglobin 93.0 L ABG Sodium 132.7 L ABG Chloride ABG Glucose 115 H Oxyhemoglobin Carboxyhemoglobin Sodium Potassium Chloride 95.8 L Carbon Dioxide 32 H BUN 20 H Creatinine Glucose 102 H POC Glucose 196 H Hemoglobin A1c Ferritin AST ALT Alkaline Phosphatase Lactate Dehydrogenase C-Reactive Protein Total Protein Albumin Arterial Blood Glucose 115 H Coronavirus (PCR) 04/26/21 04/26/21 04/26/21 11:49 16:09 21:07 WBC MCHC RDW Lymph % (Auto) Lymph # (Auto) Baso # (Auto) Seg Neutrophils % Seg Neuts % (Manual) Lymphocytes % (Manual) Seg Neutrophils # Seg Neutrophils # Man Lymphocytes # (Manual) D-Dimer ABG pH POC ABG pO2 ABG pO2 ABG HCO3 ABG O2 Saturation ABG Base Excess ABG Oxyhemoglobin ABG Sodium ABG Chloride ABG Glucose Oxyhemoglobin Carboxyhemoglobin Sodium Potassium Chloride Carbon Dioxide BUN Creatinine Glucose POC Glucose 114 H 188 H 136 H Hemoglobin A1c Ferritin AST ALT Alkaline Phosphatase Lactate Dehydrogenase C-Reactive Protein Total Protein Albumin Arterial Blood Glucose Coronavirus (PCR) 04/27/21 04/27/21 04/28/21 17:34 22:12 08:26 WBC MCHC RDW Lymph % (Auto) Lymph # (Auto) Baso # (Auto) Seg Neutrophils % Seg Neuts % (Manual) Lymphocytes % (Manual) Seg Neutrophils # Seg Neutrophils # Man Lymphocytes # (Manual) D-Dimer ABG pH POC ABG pO2 ABG pO2 ABG HCO3 ABG O2 Saturation ABG Base Excess ABG Oxyhemoglobin ABG Sodium ABG Chloride ABG Glucose Oxyhemoglobin Carboxyhemoglobin Sodium Potassium Chloride Carbon Dioxide BUN Creatinine Glucose POC Glucose 128 H 159 H 69 L Hemoglobin A1c Ferritin AST ALT Alkaline Phosphatase Lactate Dehydrogenase C-Reactive Protein Total Protein Albumin Arterial Blood Glucose Coronavirus (PCR) 04/28/21 04/28/21 04/29/21 12:22 21:11 06:05 WBC MCHC RDW Lymph % (Auto) Lymph # (Auto) Baso # (Auto) Seg Neutrophils % Seg Neuts % (Manual) Lymphocytes % (Manual) Seg Neutrophils # Seg Neutrophils # Man Lymphocytes # (Manual) D-Dimer ABG pH POC ABG pO2 ABG pO2 ABG HCO3 ABG O2 Saturation ABG Base Excess ABG Oxyhemoglobin ABG Sodium ABG Chloride ABG Glucose Oxyhemoglobin Carboxyhemoglobin Sodium 132 L Potassium Chloride 94.4 L Carbon Dioxide BUN Creatinine 0.2 L D Glucose 140 H POC Glucose 141 H 171 H Hemoglobin A1c Ferritin AST ALT Alkaline Phosphatase Lactate Dehydrogenase C-Reactive Protein Total Protein Albumin Arterial Blood Glucose Coronavirus (PCR) 04/29/21 04/29/21 04/29/21 06:05 07:24 11:36 WBC MCHC 35 H RDW 15.9 H Lymph % (Auto) Lymph # (Auto) Baso # (Auto) Seg Neutrophils % Seg Neuts % (Manual) Lymphocytes % (Manual) Seg Neutrophils # Seg Neutrophils # Man Lymphocytes # (Manual) D-Dimer ABG pH POC ABG pO2 ABG pO2 ABG HCO3 ABG O2 Saturation ABG Base Excess ABG Oxyhemoglobin ABG Sodium ABG Chloride ABG Glucose Oxyhemoglobin Carboxyhemoglobin Sodium Potassium Chloride Carbon Dioxide BUN Creatinine Glucose POC Glucose 141 H 220 H Hemoglobin A1c Ferritin AST ALT Alkaline Phosphatase Lactate Dehydrogenase C-Reactive Protein Total Protein Albumin Arterial Blood Glucose Coronavirus (PCR) 04/29/21 04/29/21 04/29/21 14:23 15:30 17:06 WBC MCHC RDW Lymph % (Auto) Lymph # (Auto) Baso # (Auto) Seg Neutrophils % Seg Neuts % (Manual) Lymphocytes % (Manual) Seg Neutrophils # Seg Neutrophils # Man Lymphocytes # (Manual) D-Dimer ABG pH POC ABG pO2 ABG pO2 52.6 L ABG HCO3 ABG O2 Saturation 86.4 L ABG Base Excess ABG Oxyhemoglobin ABG Sodium ABG Chloride ABG Glucose Oxyhemoglobin 84.6 L Carboxyhemoglobin Sodium Potassium Chloride Carbon Dioxide BUN Creatinine Glucose POC Glucose 173 H 158 H Hemoglobin A1c Ferritin AST ALT Alkaline Phosphatase Lactate Dehydrogenase C-Reactive Protein Total Protein Albumin Arterial Blood Glucose Coronavirus (PCR) 04/29/21 04/30/21 04/30/21 21:27 07:16 08:00 WBC MCHC RDW 16.1 H Lymph % (Auto) Lymph # (Auto) Baso # (Auto) Seg Neutrophils % Seg Neuts % (Manual) Lymphocytes % (Manual) Seg Neutrophils # Seg Neutrophils # Man Lymphocytes # (Manual) D-Dimer ABG pH POC ABG pO2 ABG pO2 ABG HCO3 ABG O2 Saturation ABG Base Excess ABG Oxyhemoglobin ABG Sodium ABG Chloride ABG Glucose Oxyhemoglobin Carboxyhemoglobin Sodium Potassium Chloride Carbon Dioxide BUN Creatinine Glucose POC Glucose 244 H 175 H Hemoglobin A1c Ferritin AST ALT Alkaline Phosphatase Lactate Dehydrogenase C-Reactive Protein Total Protein Albumin Arterial Blood Glucose Coronavirus (PCR) 04/30/21 04/30/21 04/30/21 08:00 08:00 11:03 WBC MCHC RDW Lymph % (Auto) Lymph # (Auto) Baso # (Auto) Seg Neutrophils % Seg Neuts % (Manual) Lymphocytes % (Manual) Seg Neutrophils # Seg Neutrophils # Man Lymphocytes # (Manual) D-Dimer 1796.87 H ABG pH POC ABG pO2 ABG pO2 ABG HCO3 ABG O2 Saturation ABG Base Excess ABG Oxyhemoglobin ABG Sodium ABG Chloride ABG Glucose Oxyhemoglobin Carboxyhemoglobin Sodium 135 L Potassium Chloride 96.3 L Carbon Dioxide BUN Creatinine 0.2 L Glucose 153 H POC Glucose 183 H Hemoglobin A1c Ferritin AST 41 H ALT 76 H Alkaline Phosphatase 160 H Lactate Dehydrogenase 522 H C-Reactive Protein Total Protein 6.1 L Albumin 3.1 L Arterial Blood Glucose Coronavirus (PCR) 04/30/21 04/30/21 05/01/21 17:04 22:17 05:39 WBC MCHC RDW Lymph % (Auto) Lymph # (Auto) Baso # (Auto) Seg Neutrophils % Seg Neuts % (Manual) Lymphocytes % (Manual) Seg Neutrophils # Seg Neutrophils # Man Lymphocytes # (Manual) D-Dimer ABG pH POC ABG pO2 ABG pO2 ABG HCO3 ABG O2 Saturation ABG Base Excess ABG Oxyhemoglobin ABG Sodium ABG Chloride ABG Glucose Oxyhemoglobin Carboxyhemoglobin Sodium 133 L Potassium Chloride 92.1 L Carbon Dioxide BUN 24 H Creatinine 0.4 L D Glucose 269 H POC Glucose 167 H 208 H Hemoglobin A1c Ferritin AST ALT 66 H Alkaline Phosphatase 142 H Lactate Dehydrogenase C-Reactive Protein Total Protein Albumin 3.2 L Arterial Blood Glucose Coronavirus (PCR) 05/01/21 05/01/21 05/01/21 05:39 05:39 07:45 WBC MCHC RDW 16.0 H Lymph % (Auto) Lymph # (Auto) Baso # (Auto) Seg Neutrophils % Seg Neuts % (Manual) Lymphocytes % (Manual) Seg Neutrophils # Seg Neutrophils # Man Lymphocytes # (Manual) D-Dimer 3984.95 H ABG pH POC ABG pO2 ABG pO2 ABG HCO3 ABG O2 Saturation ABG Base Excess ABG Oxyhemoglobin ABG Sodium ABG Chloride ABG Glucose Oxyhemoglobin Carboxyhemoglobin Sodium Potassium Chloride Carbon Dioxide BUN Creatinine Glucose POC Glucose 229 H Hemoglobin A1c Ferritin AST ALT Alkaline Phosphatase Lactate Dehydrogenase C-Reactive Protein Total Protein Albumin Arterial Blood Glucose Coronavirus (PCR) 05/01/21 05/01/21 05/01/21 12:10 15:46 21:06 WBC MCHC RDW Lymph % (Auto) Lymph # (Auto) Baso # (Auto) Seg Neutrophils % Seg Neuts % (Manual) Lymphocytes % (Manual) Seg Neutrophils # Seg Neutrophils # Man Lymphocytes # (Manual) D-Dimer ABG pH POC ABG pO2 ABG pO2 ABG HCO3 ABG O2 Saturation ABG Base Excess ABG Oxyhemoglobin ABG Sodium ABG Chloride ABG Glucose Oxyhemoglobin Carboxyhemoglobin Sodium Potassium Chloride Carbon Dioxide BUN Creatinine Glucose POC Glucose 296 H 279 H 232 H Hemoglobin A1c Ferritin AST ALT Alkaline Phosphatase Lactate Dehydrogenase C-Reactive Protein Total Protein Albumin Arterial Blood Glucose Coronavirus (PCR) 05/02/21 05/02/21 05/02/21 04:55 04:55 04:55 WBC MCHC RDW 16.1 H Lymph % (Auto) Lymph # (Auto) Baso # (Auto) Seg Neutrophils % Seg Neuts % (Manual) Lymphocytes % (Manual) Seg Neutrophils # Seg Neutrophils # Man Lymphocytes # (Manual) D-Dimer 1401.08 H ABG pH POC ABG pO2 ABG pO2 ABG HCO3 ABG O2 Saturation ABG Base Excess ABG Oxyhemoglobin ABG Sodium ABG Chloride ABG Glucose Oxyhemoglobin Carboxyhemoglobin Sodium 131 L Potassium Chloride 95.5 L Carbon Dioxide BUN 20 H Creatinine 0.3 L Glucose 288 H POC Glucose Hemoglobin A1c Ferritin AST ALT Alkaline Phosphatase Lactate Dehydrogenase C-Reactive Protein Total Protein 6.0 L Albumin 3.1 L Arterial Blood Glucose Coronavirus (PCR) 05/02/21 05/02/21 05/02/21 07:53 11:45 15:25 WBC MCHC RDW Lymph % (Auto) Lymph # (Auto) Baso # (Auto) Seg Neutrophils % Seg Neuts % (Manual) Lymphocytes % (Manual) Seg Neutrophils # Seg Neutrophils # Man Lymphocytes # (Manual) D-Dimer ABG pH POC ABG pO2 ABG pO2 ABG HCO3 ABG O2 Saturation ABG Base Excess ABG Oxyhemoglobin ABG Sodium ABG Chloride ABG Glucose Oxyhemoglobin Carboxyhemoglobin Sodium Potassium Chloride Carbon Dioxide BUN Creatinine Glucose POC Glucose 180 H 228 H 275 H Hemoglobin A1c Ferritin AST ALT Alkaline Phosphatase Lactate Dehydrogenase C-Reactive Protein Total Protein Albumin Arterial Blood Glucose Coronavirus (PCR) 05/02/21 05/03/21 05/03/21 22:56 04:30 04:49 WBC MCHC RDW Lymph % (Auto) Lymph # (Auto) Baso # (Auto) Seg Neutrophils % Seg Neuts % (Manual) Lymphocytes % (Manual) Seg Neutrophils # Seg Neutrophils # Man Lymphocytes # (Manual) D-Dimer ABG pH 7.229 L POC ABG pO2 65.3 L ABG pO2 ABG HCO3 ABG O2 Saturation ABG Base Excess ABG Oxyhemoglobin 87.8 L ABG Sodium 133.0 L ABG Chloride 97.0 L ABG Glucose 403 H Oxyhemoglobin Carboxyhemoglobin Sodium 130 L Potassium Chloride 94.9 L Carbon Dioxide BUN 20 H Creatinine 0.5 L D Glucose 359 H POC Glucose 293 H Hemoglobin A1c Ferritin AST 54 H ALT 75 H Alkaline Phosphatase 138 H Lactate Dehydrogenase C-Reactive Protein Total Protein Albumin 3.6 L Arterial Blood Glucose 403 H Coronavirus (PCR) 05/03/21 05/03/21 05/03/21 05:27 11:26 17:57 WBC MCHC RDW Lymph % (Auto) Lymph # (Auto) Baso # (Auto) Seg Neutrophils % Seg Neuts % (Manual) Lymphocytes % (Manual) Seg Neutrophils # Seg Neutrophils # Man Lymphocytes # (Manual) D-Dimer ABG pH POC ABG pO2 ABG pO2 ABG HCO3 ABG O2 Saturation ABG Base Excess ABG Oxyhemoglobin ABG Sodium ABG Chloride ABG Glucose Oxyhemoglobin Carboxyhemoglobin Sodium Potassium Chloride Carbon Dioxide BUN Creatinine Glucose POC Glucose 361 H 297 H 226 H Hemoglobin A1c Ferritin AST ALT Alkaline Phosphatase Lactate Dehydrogenase C-Reactive Protein Total Protein Albumin Arterial Blood Glucose Coronavirus (PCR) 05/03/21 05/04/21 05/04/21 23:12 05:12 07:30 WBC MCHC RDW Lymph % (Auto) Lymph # (Auto) Baso # (Auto) Seg Neutrophils % Seg Neuts % (Manual) Lymphocytes % (Manual) Seg Neutrophils # Seg Neutrophils # Man Lymphocytes # (Manual) D-Dimer ABG pH POC ABG pO2 ABG pO2 ABG HCO3 ABG O2 Saturation ABG Base Excess ABG Oxyhemoglobin ABG Sodium ABG Chloride ABG Glucose Oxyhemoglobin Carboxyhemoglobin Sodium Potassium Chloride Carbon Dioxide BUN Creatinine Glucose POC Glucose 282 H 285 H 254 H Hemoglobin A1c Ferritin AST ALT Alkaline Phosphatase Lactate Dehydrogenase C-Reactive Protein Total Protein Albumin Arterial Blood Glucose Coronavirus (PCR) 05/04/21 05/04/21 05/04/21 08:58 11:45 16:07 WBC MCHC RDW Lymph % (Auto) Lymph # (Auto) Baso # (Auto) Seg Neutrophils % Seg Neuts % (Manual) Lymphocytes % (Manual) Seg Neutrophils # Seg Neutrophils # Man Lymphocytes # (Manual) D-Dimer ABG pH POC ABG pO2 ABG pO2 ABG HCO3 ABG O2 Saturation ABG Base Excess ABG Oxyhemoglobin ABG Sodium ABG Chloride ABG Glucose Oxyhemoglobin Carboxyhemoglobin Sodium 134 L Potassium Chloride Carbon Dioxide BUN 20 H Creatinine 0.3 L Glucose 267 H POC Glucose 244 H 297 H Hemoglobin A1c Ferritin AST ALT Alkaline Phosphatase Lactate Dehydrogenase C-Reactive Protein Total Protein 6.0 L Albumin 3.2 L Arterial Blood Glucose Coronavirus (PCR) 05/04/21 05/05/21 05/05/21 23:32 05:00 05:13 WBC MCHC RDW Lymph % (Auto) Lymph # (Auto) Baso # (Auto) Seg Neutrophils % Seg Neuts % (Manual) Lymphocytes % (Manual) Seg Neutrophils # Seg Neutrophils # Man Lymphocytes # (Manual) D-Dimer ABG pH POC ABG pO2 ABG pO2 ABG HCO3 ABG O2 Saturation ABG Base Excess ABG Oxyhemoglobin ABG Sodium ABG Chloride ABG Glucose Oxyhemoglobin Carboxyhemoglobin Sodium 132 L Potassium Chloride 96.4 L Carbon Dioxide BUN 22 H Creatinine 0.3 L Glucose 228 H POC Glucose 154 H 260 H Hemoglobin A1c Ferritin AST ALT 67 H Alkaline Phosphatase Lactate Dehydrogenase C-Reactive Protein Total Protein 6.1 L Albumin 3.2 L Arterial Blood Glucose Coronavirus (PCR) 05/05/21 05/05/21 05/05/21 11:32 17:49 23:07 WBC MCHC RDW Lymph % (Auto) Lymph # (Auto) Baso # (Auto) Seg Neutrophils % Seg Neuts % (Manual) Lymphocytes % (Manual) Seg Neutrophils # Seg Neutrophils # Man Lymphocytes # (Manual) D-Dimer ABG pH POC ABG pO2 ABG pO2 ABG HCO3 ABG O2 Saturation ABG Base Excess ABG Oxyhemoglobin ABG Sodium ABG Chloride ABG Glucose Oxyhemoglobin Carboxyhemoglobin Sodium Potassium Chloride Carbon Dioxide BUN Creatinine Glucose POC Glucose 279 H 308 H 213 H Hemoglobin A1c Ferritin AST ALT Alkaline Phosphatase Lactate Dehydrogenase C-Reactive Protein Total Protein Albumin Arterial Blood Glucose Coronavirus (PCR) 05/06/21 05/06/21 05/06/21 05:00 05:00 05:20 WBC MCHC RDW 16.8 H Lymph % (Auto) Lymph # (Auto) Baso # (Auto) Seg Neutrophils % Seg Neuts % (Manual) 99.0 H Lymphocytes % (Manual) Seg Neutrophils # Seg Neutrophils # Man 10.9 H Lymphocytes # (Manual) 0.0 L D-Dimer ABG pH POC ABG pO2 ABG pO2 ABG HCO3 ABG O2 Saturation ABG Base Excess ABG Oxyhemoglobin ABG Sodium ABG Chloride ABG Glucose Oxyhemoglobin Carboxyhemoglobin Sodium 133 L Potassium Chloride Carbon Dioxide BUN 21 H Creatinine 0.3 L Glucose 259 H POC Glucose 308 H Hemoglobin A1c Ferritin AST ALT Alkaline Phosphatase Lactate Dehydrogenase C-Reactive Protein Total Protein Albumin 3.2 L Arterial Blood Glucose Coronavirus (PCR) 05/06/21 05/06/21 05/06/21 11:24 17:54 21:32 WBC MCHC RDW Lymph % (Auto) Lymph # (Auto) Baso # (Auto) Seg Neutrophils % Seg Neuts % (Manual) Lymphocytes % (Manual) Seg Neutrophils # Seg Neutrophils # Man Lymphocytes # (Manual) D-Dimer ABG pH POC ABG pO2 ABG pO2 ABG HCO3 ABG O2 Saturation ABG Base Excess ABG Oxyhemoglobin ABG Sodium ABG Chloride ABG Glucose Oxyhemoglobin Carboxyhemoglobin Sodium Potassium Chloride Carbon Dioxide BUN Creatinine Glucose POC Glucose 262 H 124 H 246 H Hemoglobin A1c Ferritin AST ALT Alkaline Phosphatase Lactate Dehydrogenase C-Reactive Protein Total Protein Albumin Arterial Blood Glucose Coronavirus (PCR) 05/06/21 05/07/21 05/07/21 23:10 04:54 04:54 WBC MCHC RDW Lymph % (Auto) Lymph # (Auto) Baso # (Auto) Seg Neutrophils % Seg Neuts % (Manual) Lymphocytes % (Manual) Seg Neutrophils # Seg Neutrophils # Man Lymphocytes # (Manual) D-Dimer 1609.28 H ABG pH POC ABG pO2 ABG pO2 ABG HCO3 ABG O2 Saturation ABG Base Excess ABG Oxyhemoglobin ABG Sodium ABG Chloride ABG Glucose Oxyhemoglobin Carboxyhemoglobin Sodium 136 L Potassium Chloride Carbon Dioxide BUN 23 H Creatinine 0.3 L Glucose 110 H POC Glucose 249 H Hemoglobin A1c Ferritin AST ALT Alkaline Phosphatase Lactate Dehydrogenase C-Reactive Protein Total Protein 6.2 L Albumin 3.0 L Arterial Blood Glucose Coronavirus (PCR) 05/07/21 05/07/21 05/07/21 04:54 04:54 11:41 WBC MCHC RDW Lymph % (Auto) Lymph # (Auto) Baso # (Auto) Seg Neutrophils % Seg Neuts % (Manual) Lymphocytes % (Manual) Seg Neutrophils # Seg Neutrophils # Man Lymphocytes # (Manual) D-Dimer ABG pH POC ABG pO2 ABG pO2 ABG HCO3 ABG O2 Saturation ABG Base Excess ABG Oxyhemoglobin ABG Sodium ABG Chloride ABG Glucose Oxyhemoglobin Carboxyhemoglobin Sodium Potassium Chloride Carbon Dioxide BUN Creatinine Glucose POC Glucose 118 H Hemoglobin A1c Ferritin 296.1 H AST ALT Alkaline Phosphatase Lactate Dehydrogenase 724 H C-Reactive Protein Total Protein Albumin Arterial Blood Glucose Coronavirus (PCR) 05/07/21 05/07/21 05/08/21 16:43 22:34 06:44 WBC MCHC RDW Lymph % (Auto) Lymph # (Auto) Baso # (Auto) Seg Neutrophils % Seg Neuts % (Manual) Lymphocytes % (Manual) Seg Neutrophils # Seg Neutrophils # Man Lymphocytes # (Manual) D-Dimer ABG pH POC ABG pO2 ABG pO2 ABG HCO3 ABG O2 Saturation ABG Base Excess ABG Oxyhemoglobin ABG Sodium ABG Chloride ABG Glucose Oxyhemoglobin Carboxyhemoglobin Sodium Potassium Chloride Carbon Dioxide BUN Creatinine Glucose POC Glucose 159 H 233 H 235 H Hemoglobin A1c Ferritin AST ALT Alkaline Phosphatase Lactate Dehydrogenase C-Reactive Protein Total Protein Albumin Arterial Blood Glucose Coronavirus (PCR) 05/08/21 05/08/21 05/08/21 07:49 11:56 17:13 WBC MCHC RDW Lymph % (Auto) Lymph # (Auto) Baso # (Auto) Seg Neutrophils % Seg Neuts % (Manual) Lymphocytes % (Manual) Seg Neutrophils # Seg Neutrophils # Man Lymphocytes # (Manual) D-Dimer ABG pH POC ABG pO2 ABG pO2 ABG HCO3 ABG O2 Saturation ABG Base Excess ABG Oxyhemoglobin ABG Sodium ABG Chloride ABG Glucose Oxyhemoglobin Carboxyhemoglobin Sodium Potassium Chloride Carbon Dioxide BUN Creatinine Glucose POC Glucose 219 H 184 H 182 H Hemoglobin A1c Ferritin AST ALT Alkaline Phosphatase Lactate Dehydrogenase C-Reactive Protein Total Protein Albumin Arterial Blood Glucose Coronavirus (PCR) 05/08/21 05/09/21 05/09/21 23:35 05:20 05:20 WBC MCHC RDW Lymph % (Auto) Lymph # (Auto) Baso # (Auto) Seg Neutrophils % Seg Neuts % (Manual) Lymphocytes % (Manual) Seg Neutrophils # Seg Neutrophils # Man Lymphocytes # (Manual) D-Dimer 1003.87 H ABG pH POC ABG pO2 ABG pO2 ABG HCO3 ABG O2 Saturation ABG Base Excess ABG Oxyhemoglobin ABG Sodium ABG Chloride ABG Glucose Oxyhemoglobin Carboxyhemoglobin Sodium Potassium Chloride Carbon Dioxide BUN Creatinine Glucose POC Glucose 198 H Hemoglobin A1c Ferritin 378.7 H AST ALT Alkaline Phosphatase Lactate Dehydrogenase C-Reactive Protein Total Protein Albumin Arterial Blood Glucose Coronavirus (PCR) 05/09/21 05/09/21 05/09/21 05:20 06:04 12:53 WBC MCHC RDW Lymph % (Auto) Lymph # (Auto) Baso # (Auto) Seg Neutrophils % Seg Neuts % (Manual) Lymphocytes % (Manual) Seg Neutrophils # Seg Neutrophils # Man Lymphocytes # (Manual) D-Dimer ABG pH POC ABG pO2 ABG pO2 ABG HCO3 ABG O2 Saturation ABG Base Excess ABG Oxyhemoglobin ABG Sodium ABG Chloride ABG Glucose Oxyhemoglobin Carboxyhemoglobin Sodium Potassium Chloride Carbon Dioxide BUN Creatinine Glucose POC Glucose 159 H 180 H Hemoglobin A1c Ferritin AST ALT Alkaline Phosphatase Lactate Dehydrogenase 558 H C-Reactive Protein 2.40 H Total Protein Albumin Arterial Blood Glucose Coronavirus (PCR) 05/09/21 05/09/21 05/10/21 16:43 21:27 10:18 WBC MCHC RDW Lymph % (Auto) Lymph # (Auto) Baso # (Auto) Seg Neutrophils % Seg Neuts % (Manual) Lymphocytes % (Manual) Seg Neutrophils # Seg Neutrophils # Man Lymphocytes # (Manual) D-Dimer ABG pH POC ABG pO2 ABG pO2 ABG HCO3 ABG O2 Saturation ABG Base Excess ABG Oxyhemoglobin ABG Sodium ABG Chloride ABG Glucose Oxyhemoglobin Carboxyhemoglobin Sodium Potassium Chloride Carbon Dioxide BUN Creatinine Glucose POC Glucose 212 H 285 H 261 H Hemoglobin A1c Ferritin AST ALT Alkaline Phosphatase Lactate Dehydrogenase C-Reactive Protein Total Protein Albumin Arterial Blood Glucose Coronavirus (PCR) 05/10/21 05/10/21 05/11/21 17:58 18:02 00:29 WBC MCHC RDW Lymph % (Auto) Lymph # (Auto) Baso # (Auto) Seg Neutrophils % Seg Neuts % (Manual) Lymphocytes % (Manual) Seg Neutrophils # Seg Neutrophils # Man Lymphocytes # (Manual) D-Dimer ABG pH POC ABG pO2 ABG pO2 ABG HCO3 ABG O2 Saturation ABG Base Excess ABG Oxyhemoglobin ABG Sodium ABG Chloride ABG Glucose Oxyhemoglobin Carboxyhemoglobin Sodium Potassium Chloride Carbon Dioxide BUN Creatinine Glucose POC Glucose 213 H 179 H 149 H Hemoglobin A1c Ferritin AST ALT Alkaline Phosphatase Lactate Dehydrogenase C-Reactive Protein Total Protein Albumin Arterial Blood Glucose Coronavirus (PCR) 05/11/21 05/11/21 05/11/21 05:22 11:32 17:00 WBC 14.9 H MCHC RDW 18.9 H Lymph % (Auto) 4.9 L Lymph # (Auto) 0.7 L Baso # (Auto) 0.2 H Seg Neutrophils % Seg Neuts % (Manual) Lymphocytes % (Manual) Seg Neutrophils # 13.3 H Seg Neutrophils # Man Lymphocytes # (Manual) D-Dimer ABG pH POC ABG pO2 ABG pO2 ABG HCO3 ABG O2 Saturation ABG Base Excess ABG Oxyhemoglobin ABG Sodium ABG Chloride ABG Glucose Oxyhemoglobin Carboxyhemoglobin Sodium Potassium Chloride Carbon Dioxide BUN Creatinine Glucose POC Glucose 162 H 179 H Hemoglobin A1c Ferritin AST ALT Alkaline Phosphatase Lactate Dehydrogenase C-Reactive Protein Total Protein Albumin Arterial Blood Glucose Coronavirus (PCR) 05/11/21 05/11/21 05/11/21 17:00 17:33 22:03 WBC MCHC RDW Lymph % (Auto) Lymph # (Auto) Baso # (Auto) Seg Neutrophils % Seg Neuts % (Manual) Lymphocytes % (Manual) Seg Neutrophils # Seg Neutrophils # Man Lymphocytes # (Manual) D-Dimer ABG pH POC ABG pO2 ABG pO2 ABG HCO3 ABG O2 Saturation ABG Base Excess ABG Oxyhemoglobin ABG Sodium ABG Chloride ABG Glucose Oxyhemoglobin Carboxyhemoglobin Sodium 135 L Potassium Chloride 97.3 L Carbon Dioxide BUN 21 H Creatinine 0.3 L Glucose 133 H POC Glucose 140 H 282 H Hemoglobin A1c Ferritin AST ALT 60 H Alkaline Phosphatase Lactate Dehydrogenase C-Reactive Protein Total Protein Albumin 3.1 L Arterial Blood Glucose Coronavirus (PCR) 05/12/21 05/12/21 05/12/21 04:05 04:05 04:05 WBC MCHC RDW 18.4 H Lymph % (Auto) Lymph # (Auto) Baso # (Auto) Seg Neutrophils % Seg Neuts % (Manual) 94.0 H Lymphocytes % (Manual) 4.0 L Seg Neutrophils # Seg Neutrophils # Man Lymphocytes # (Manual) 0.3 L D-Dimer ABG pH POC ABG pO2 ABG pO2 ABG HCO3 ABG O2 Saturation ABG Base Excess ABG Oxyhemoglobin ABG Sodium ABG Chloride ABG Glucose Oxyhemoglobin Carboxyhemoglobin Sodium 136 L Potassium Chloride Carbon Dioxide BUN 18 H Creatinine 0.2 L Glucose 142 H POC Glucose Hemoglobin A1c Ferritin 350.7 H AST ALT Alkaline Phosphatase Lactate Dehydrogenase 546 H C-Reactive Protein Total Protein 6.1 L Albumin 3.0 L Arterial Blood Glucose Coronavirus (PCR) 05/12/21 05/12/21 05/12/21 05:11 11:17 16:27 WBC MCHC RDW Lymph % (Auto) Lymph # (Auto) Baso # (Auto) Seg Neutrophils % Seg Neuts % (Manual) Lymphocytes % (Manual) Seg Neutrophils # Seg Neutrophils # Man Lymphocytes # (Manual) D-Dimer ABG pH POC ABG pO2 ABG pO2 ABG HCO3 ABG O2 Saturation ABG Base Excess ABG Oxyhemoglobin ABG Sodium ABG Chloride ABG Glucose Oxyhemoglobin Carboxyhemoglobin Sodium Potassium Chloride Carbon Dioxide BUN Creatinine Glucose POC Glucose 152 H 190 H 261 H Hemoglobin A1c Ferritin AST ALT Alkaline Phosphatase Lactate Dehydrogenase C-Reactive Protein Total Protein Albumin Arterial Blood Glucose Coronavirus (PCR) 05/12/21 05/13/21 05/13/21 20:55 11:08 21:41 WBC MCHC RDW Lymph % (Auto) Lymph # (Auto) Baso # (Auto) Seg Neutrophils % Seg Neuts % (Manual) Lymphocytes % (Manual) Seg Neutrophils # Seg Neutrophils # Man Lymphocytes # (Manual) D-Dimer ABG pH POC ABG pO2 ABG pO2 ABG HCO3 ABG O2 Saturation ABG Base Excess ABG Oxyhemoglobin ABG Sodium ABG Chloride ABG Glucose Oxyhemoglobin Carboxyhemoglobin Sodium Potassium Chloride Carbon Dioxide BUN Creatinine Glucose POC Glucose 231 H 106 H 174 H Hemoglobin A1c Ferritin AST ALT Alkaline Phosphatase Lactate Dehydrogenase C-Reactive Protein Total Protein Albumin Arterial Blood Glucose Coronavirus (PCR) 05/14/21 05/14/21 05/14/21 00:53 02:23 06:06 WBC MCHC RDW Lymph % (Auto) Lymph # (Auto) Baso # (Auto) Seg Neutrophils % Seg Neuts % (Manual) Lymphocytes % (Manual) Seg Neutrophils # Seg Neutrophils # Man Lymphocytes # (Manual) D-Dimer ABG pH POC ABG pO2 ABG pO2 130.3 H ABG HCO3 30.6 H ABG O2 Saturation ABG Base Excess 4.9 H ABG Oxyhemoglobin ABG Sodium ABG Chloride ABG Glucose Oxyhemoglobin Carboxyhemoglobin Sodium Potassium Chloride Carbon Dioxide BUN Creatinine Glucose POC Glucose 229 H 119 H Hemoglobin A1c Ferritin AST ALT Alkaline Phosphatase Lactate Dehydrogenase C-Reactive Protein Total Protein Albumin Arterial Blood Glucose Coronavirus (PCR) 05/14/21 05/14/21 05/14/21 07:13 07:13 07:13 WBC MCHC RDW Lymph % (Auto) Lymph # (Auto) Baso # (Auto) Seg Neutrophils % Seg Neuts % (Manual) Lymphocytes % (Manual) Seg Neutrophils # Seg Neutrophils # Man Lymphocytes # (Manual) D-Dimer 712.80 H ABG pH POC ABG pO2 ABG pO2 ABG HCO3 ABG O2 Saturation ABG Base Excess ABG Oxyhemoglobin ABG Sodium ABG Chloride ABG Glucose Oxyhemoglobin Carboxyhemoglobin Sodium 133 L Potassium Chloride 95.5 L Carbon Dioxide 32 H BUN Creatinine 0.2 L Glucose 137 H POC Glucose Hemoglobin A1c Ferritin 283.5 H AST ALT 63 H Alkaline Phosphatase Lactate Dehydrogenase 563 H C-Reactive Protein Total Protein 6.1 L Albumin 3.0 L Arterial Blood Glucose Coronavirus (PCR) 05/14/21 05/14/21 05/14/21 12:21 15:33 21:50 WBC MCHC RDW Lymph % (Auto) Lymph # (Auto) Baso # (Auto) Seg Neutrophils % Seg Neuts % (Manual) Lymphocytes % (Manual) Seg Neutrophils # Seg Neutrophils # Man Lymphocytes # (Manual) D-Dimer ABG pH POC ABG pO2 ABG pO2 ABG HCO3 ABG O2 Saturation ABG Base Excess ABG Oxyhemoglobin ABG Sodium ABG Chloride ABG Glucose Oxyhemoglobin Carboxyhemoglobin Sodium Potassium Chloride Carbon Dioxide BUN Creatinine Glucose POC Glucose 143 H 204 H 202 H Hemoglobin A1c Ferritin AST ALT Alkaline Phosphatase Lactate Dehydrogenase C-Reactive Protein Total Protein Albumin Arterial Blood Glucose Coronavirus (PCR) 05/15/21 05/15/21 05/15/21 05:05 11:12 16:39 WBC MCHC RDW Lymph % (Auto) Lymph # (Auto) Baso # (Auto) Seg Neutrophils % Seg Neuts % (Manual) Lymphocytes % (Manual) Seg Neutrophils # Seg Neutrophils # Man Lymphocytes # (Manual) D-Dimer ABG pH POC ABG pO2 ABG pO2 ABG HCO3 ABG O2 Saturation ABG Base Excess ABG Oxyhemoglobin ABG Sodium ABG Chloride ABG Glucose Oxyhemoglobin Carboxyhemoglobin Sodium Potassium Chloride Carbon Dioxide BUN Creatinine Glucose POC Glucose 125 H 201 H 241 H Hemoglobin A1c Ferritin AST ALT Alkaline Phosphatase Lactate Dehydrogenase C-Reactive Protein Total Protein Albumin Arterial Blood Glucose Coronavirus (PCR) 05/15/21 05/16/21 05/16/21 21:31 05:04 10:40 WBC MCHC RDW Lymph % (Auto) Lymph # (Auto) Baso # (Auto) Seg Neutrophils % Seg Neuts % (Manual) Lymphocytes % (Manual) Seg Neutrophils # Seg Neutrophils # Man Lymphocytes # (Manual) D-Dimer ABG pH POC ABG pO2 ABG pO2 ABG HCO3 ABG O2 Saturation ABG Base Excess ABG Oxyhemoglobin ABG Sodium ABG Chloride ABG Glucose Oxyhemoglobin Carboxyhemoglobin Sodium Potassium Chloride Carbon Dioxide BUN Creatinine Glucose POC Glucose 234 H 123 H 231 H Hemoglobin A1c Ferritin AST ALT Alkaline Phosphatase Lactate Dehydrogenase C-Reactive Protein Total Protein Albumin Arterial Blood Glucose Coronavirus (PCR) 05/16/21 05/16/21 05/17/21 18:23 21:29 06:20 WBC MCHC RDW 18.8 H Lymph % (Auto) 10.2 L Lymph # (Auto) 0.8 L Baso # (Auto) Seg Neutrophils % 85.8 H Seg Neuts % (Manual) Lymphocytes % (Manual) Seg Neutrophils # Seg Neutrophils # Man Lymphocytes # (Manual) D-Dimer ABG pH POC ABG pO2 ABG pO2 ABG HCO3 ABG O2 Saturation ABG Base Excess ABG Oxyhemoglobin ABG Sodium ABG Chloride ABG Glucose Oxyhemoglobin Carboxyhemoglobin Sodium Potassium Chloride Carbon Dioxide BUN Creatinine Glucose POC Glucose 266 H 234 H Hemoglobin A1c Ferritin AST ALT Alkaline Phosphatase Lactate Dehydrogenase C-Reactive Protein Total Protein Albumin Arterial Blood Glucose Coronavirus (PCR) 05/17/21 05/17/21 05/17/21 06:20 11:06 16:36 WBC MCHC RDW Lymph % (Auto) Lymph # (Auto) Baso # (Auto) Seg Neutrophils % Seg Neuts % (Manual) Lymphocytes % (Manual) Seg Neutrophils # Seg Neutrophils # Man Lymphocytes # (Manual) D-Dimer ABG pH POC ABG pO2 ABG pO2 ABG HCO3 ABG O2 Saturation ABG Base Excess ABG Oxyhemoglobin ABG Sodium ABG Chloride ABG Glucose Oxyhemoglobin Carboxyhemoglobin Sodium Potassium Chloride Carbon Dioxide 33 H BUN Creatinine 0.2 L Glucose 101 H POC Glucose 209 H 180 H Hemoglobin A1c Ferritin AST ALT Alkaline Phosphatase Lactate Dehydrogenase C-Reactive Protein Total Protein Albumin Arterial Blood Glucose Coronavirus (PCR) 05/17/21 05/18/21 05/18/21 21:06 12:00 15:06 WBC MCHC RDW Lymph % (Auto) Lymph # (Auto) Baso # (Auto) Seg Neutrophils % Seg Neuts % (Manual) Lymphocytes % (Manual) Seg Neutrophils # Seg Neutrophils # Man Lymphocytes # (Manual) D-Dimer 874.02 H ABG pH POC ABG pO2 ABG pO2 ABG HCO3 ABG O2 Saturation ABG Base Excess ABG Oxyhemoglobin ABG Sodium ABG Chloride ABG Glucose Oxyhemoglobin Carboxyhemoglobin Sodium Potassium Chloride Carbon Dioxide BUN Creatinine Glucose POC Glucose 256 H 139 H Hemoglobin A1c Ferritin AST ALT Alkaline Phosphatase Lactate Dehydrogenase C-Reactive Protein Total Protein Albumin Arterial Blood Glucose Coronavirus (PCR) 05/18/21 05/18/21 05/18/21 15:06 15:06 16:08 WBC MCHC RDW Lymph % (Auto) Lymph # (Auto) Baso # (Auto) Seg Neutrophils % Seg Neuts % (Manual) Lymphocytes % (Manual) Seg Neutrophils # Seg Neutrophils # Man Lymphocytes # (Manual) D-Dimer ABG pH POC ABG pO2 ABG pO2 ABG HCO3 ABG O2 Saturation ABG Base Excess ABG Oxyhemoglobin ABG Sodium ABG Chloride ABG Glucose Oxyhemoglobin Carboxyhemoglobin Sodium Potassium Chloride Carbon Dioxide BUN Creatinine Glucose POC Glucose 178 H Hemoglobin A1c Ferritin 289.6 H AST ALT Alkaline Phosphatase Lactate Dehydrogenase 605 H C-Reactive Protein Total Protein Albumin Arterial Blood Glucose Coronavirus (PCR) 05/18/21 05/19/21 05/19/21 21:22 11:57 15:26 WBC MCHC RDW Lymph % (Auto) Lymph # (Auto) Baso # (Auto) Seg Neutrophils % Seg Neuts % (Manual) Lymphocytes % (Manual) Seg Neutrophils # Seg Neutrophils # Man Lymphocytes # (Manual) D-Dimer ABG pH POC ABG pO2 ABG pO2 ABG HCO3 ABG O2 Saturation ABG Base Excess ABG Oxyhemoglobin ABG Sodium ABG Chloride ABG Glucose Oxyhemoglobin Carboxyhemoglobin Sodium Potassium Chloride Carbon Dioxide BUN Creatinine Glucose POC Glucose 241 H 201 H 209 H Hemoglobin A1c Ferritin AST ALT Alkaline Phosphatase Lactate Dehydrogenase C-Reactive Protein Total Protein Albumin Arterial Blood Glucose Coronavirus (PCR) 05/19/21 05/20/21 05/20/21 20:59 07:38 08:01 WBC MCHC RDW 19.7 H Lymph % (Auto) 8.3 L Lymph # (Auto) 0.8 L Baso # (Auto) Seg Neutrophils % 88.6 H Seg Neuts % (Manual) Lymphocytes % (Manual) Seg Neutrophils # 8.4 H Seg Neutrophils # Man Lymphocytes # (Manual) D-Dimer ABG pH POC ABG pO2 ABG pO2 ABG HCO3 ABG O2 Saturation ABG Base Excess ABG Oxyhemoglobin ABG Sodium ABG Chloride ABG Glucose Oxyhemoglobin Carboxyhemoglobin Sodium Potassium Chloride Carbon Dioxide BUN Creatinine Glucose POC Glucose 226 H 130 H Hemoglobin A1c Ferritin AST ALT Alkaline Phosphatase Lactate Dehydrogenase C-Reactive Protein Total Protein Albumin Arterial Blood Glucose Coronavirus (PCR) 05/20/21 05/20/21 05/20/21 08:01 11:00 16:43 WBC MCHC RDW Lymph % (Auto) Lymph # (Auto) Baso # (Auto) Seg Neutrophils % Seg Neuts % (Manual) Lymphocytes % (Manual) Seg Neutrophils # Seg Neutrophils # Man Lymphocytes # (Manual) D-Dimer ABG pH POC ABG pO2 ABG pO2 ABG HCO3 ABG O2 Saturation ABG Base Excess ABG Oxyhemoglobin ABG Sodium ABG Chloride ABG Glucose Oxyhemoglobin Carboxyhemoglobin Sodium Potassium Chloride Carbon Dioxide BUN 18 H Creatinine 0.2 L Glucose 132 H POC Glucose 237 H 240 H Hemoglobin A1c Ferritin AST ALT Alkaline Phosphatase Lactate Dehydrogenase C-Reactive Protein Total Protein Albumin Arterial Blood Glucose Coronavirus (PCR) 05/20/21 05/21/21 05/21/21 21:21 07:35 11:32 WBC MCHC RDW Lymph % (Auto) Lymph # (Auto) Baso # (Auto) Seg Neutrophils % Seg Neuts % (Manual) Lymphocytes % (Manual) Seg Neutrophils # Seg Neutrophils # Man Lymphocytes # (Manual) D-Dimer ABG pH POC ABG pO2 ABG pO2 ABG HCO3 ABG O2 Saturation ABG Base Excess ABG Oxyhemoglobin ABG Sodium ABG Chloride ABG Glucose Oxyhemoglobin Carboxyhemoglobin Sodium Potassium Chloride Carbon Dioxide BUN Creatinine Glucose POC Glucose 241 H 162 H 171 H Hemoglobin A1c Ferritin AST ALT Alkaline Phosphatase Lactate Dehydrogenase C-Reactive Protein Total Protein Albumin Arterial Blood Glucose Coronavirus (PCR) 05/21/21 05/21/21 05/22/21 16:22 20:43 05:14 WBC MCHC RDW Lymph % (Auto) Lymph # (Auto) Baso # (Auto) Seg Neutrophils % Seg Neuts % (Manual) Lymphocytes % (Manual) Seg Neutrophils # Seg Neutrophils # Man Lymphocytes # (Manual) D-Dimer ABG pH POC ABG pO2 ABG pO2 ABG HCO3 ABG O2 Saturation ABG Base Excess ABG Oxyhemoglobin ABG Sodium ABG Chloride ABG Glucose Oxyhemoglobin Carboxyhemoglobin Sodium Potassium Chloride Carbon Dioxide BUN Creatinine Glucose POC Glucose 244 H 299 H 140 H Hemoglobin A1c Ferritin AST ALT Alkaline Phosphatase Lactate Dehydrogenase C-Reactive Protein Total Protein Albumin Arterial Blood Glucose Coronavirus (PCR) 05/22/21 05/22/21 05/22/21 08:45 11:54 16:15 WBC MCHC RDW Lymph % (Auto) Lymph # (Auto) Baso # (Auto) Seg Neutrophils % Seg Neuts % (Manual) Lymphocytes % (Manual) Seg Neutrophils # Seg Neutrophils # Man Lymphocytes # (Manual) D-Dimer ABG pH POC ABG pO2 ABG pO2 ABG HCO3 ABG O2 Saturation ABG Base Excess ABG Oxyhemoglobin ABG Sodium ABG Chloride ABG Glucose Oxyhemoglobin Carboxyhemoglobin Sodium Potassium Chloride Carbon Dioxide BUN Creatinine Glucose POC Glucose 133 H 265 H 221 H Hemoglobin A1c Ferritin AST ALT Alkaline Phosphatase Lactate Dehydrogenase C-Reactive Protein Total Protein Albumin Arterial Blood Glucose Coronavirus (PCR) 05/22/21 05/23/21 05/23/21 21:43 08:20 09:50 WBC MCHC RDW Lymph % (Auto) Lymph # (Auto) Baso # (Auto) Seg Neutrophils % Seg Neuts % (Manual) Lymphocytes % (Manual) Seg Neutrophils # Seg Neutrophils # Man Lymphocytes # (Manual) D-Dimer 910.38 H ABG pH POC ABG pO2 ABG pO2 ABG HCO3 ABG O2 Saturation ABG Base Excess ABG Oxyhemoglobin ABG Sodium ABG Chloride ABG Glucose Oxyhemoglobin Carboxyhemoglobin Sodium Potassium Chloride Carbon Dioxide BUN Creatinine Glucose POC Glucose 262 H 140 H Hemoglobin A1c Ferritin AST ALT Alkaline Phosphatase Lactate Dehydrogenase C-Reactive Protein Total Protein Albumin Arterial Blood Glucose Coronavirus (PCR) 05/23/21 05/23/21 05/23/21 09:50 09:50 10:52 WBC MCHC RDW Lymph % (Auto) Lymph # (Auto) Baso # (Auto) Seg Neutrophils % Seg Neuts % (Manual) Lymphocytes % (Manual) Seg Neutrophils # Seg Neutrophils # Man Lymphocytes # (Manual) D-Dimer ABG pH POC ABG pO2 ABG pO2 ABG HCO3 ABG O2 Saturation ABG Base Excess ABG Oxyhemoglobin ABG Sodium ABG Chloride ABG Glucose Oxyhemoglobin Carboxyhemoglobin Sodium Potassium Chloride Carbon Dioxide BUN Creatinine Glucose POC Glucose 241 H Hemoglobin A1c Ferritin 244.9 H AST ALT Alkaline Phosphatase Lactate Dehydrogenase 584 H C-Reactive Protein Total Protein Albumin Arterial Blood Glucose Coronavirus (PCR) 05/23/21 05/23/21 05/24/21 17:24 21:52 07:44 WBC MCHC RDW Lymph % (Auto) Lymph # (Auto) Baso # (Auto) Seg Neutrophils % Seg Neuts % (Manual) Lymphocytes % (Manual) Seg Neutrophils # Seg Neutrophils # Man Lymphocytes # (Manual) D-Dimer ABG pH POC ABG pO2 ABG pO2 ABG HCO3 ABG O2 Saturation ABG Base Excess ABG Oxyhemoglobin ABG Sodium ABG Chloride ABG Glucose Oxyhemoglobin Carboxyhemoglobin Sodium Potassium Chloride Carbon Dioxide BUN Creatinine Glucose POC Glucose 197 H 289 H 161 H Hemoglobin A1c Ferritin AST ALT Alkaline Phosphatase Lactate Dehydrogenase C-Reactive Protein Total Protein Albumin Arterial Blood Glucose Coronavirus (PCR) 05/24/21 11:17 WBC MCHC RDW Lymph % (Auto) Lymph # (Auto) Baso # (Auto) Seg Neutrophils % Seg Neuts % (Manual) Lymphocytes % (Manual) Seg Neutrophils # Seg Neutrophils # Man Lymphocytes # (Manual) D-Dimer ABG pH POC ABG pO2 ABG pO2 ABG HCO3 ABG O2 Saturation ABG Base Excess ABG Oxyhemoglobin ABG Sodium ABG Chloride ABG Glucose Oxyhemoglobin Carboxyhemoglobin Sodium Potassium Chloride Carbon Dioxide BUN Creatinine Glucose POC Glucose 308 H Hemoglobin A1c Ferritin AST ALT Alkaline Phosphatase Lactate Dehydrogenase C-Reactive Protein Total Protein Albumin Arterial Blood Glucose Coronavirus (PCR)
[2021-05-24] MEDS: MOXIFLOXACIN 0.5% OPHTH SOLN 3ML OU SCH (17:49)
[2021-05-25] MEDS: LORazepam 2 MG/ML VIAL IV SCH ×4 (01:36→14:39)
[2021-05-25] MEDS: MINERAL OIL/PETROLATUM, WHITE OPHTH OINT 3.5 GM OU SCH ×5 (01:52→22:58)
[2021-05-25] MEDS: DOCUSATE SODIUM 100 MG CAP PO SCH ×3 (01:53→22:59)
[2021-05-25] MEDS: ENOXAPARIN 40 MG/0.4 ML INJ SUB-Q SCH ×2 (01:53→22:59)
[2021-05-25] MEDS: MOXIFLOXACIN 0.5% OPHTH SOLN 3ML OU SCH ×4 (01:54→23:01)
[2021-05-25] MEDS: SENNOSIDES 8.6 MG TAB PO SCH ×2 (01:56→23:02)
[2021-05-25] MEDS: methylPREDNISolone Sod Succinate 125 MG/2 ML INJ IV SCH ×4 (01:58→23:04)
[2021-05-25] MEDS: FAMOTIDINE 20 MG TAB PO SCH ×3 (01:59→23:02)
[2021-05-25] MEDS: ZINC SULFATE 220 MG CAP PO SCH ×3 (01:59→23:03)
[2021-05-25] MEDS: INSULIN GLARGINE 100 UNITS/ML SUB-Q SCH ×3 (02:02→23:01)
[2021-05-25] MEDS: INSULIN LISPRO 100 UNIT/ML SUB-Q SCH ×4 (02:21→18:10)
[2021-05-25] MEDS: ACETAMINOPHEN 325 MG TAB PO PRN (05:17)
--- NOTE | 2021-05-25 09:56 | Progress Note ---
Assessment and Plan -Acute hypoxic resp failure due to covid19 -S/p BiPAP, now discontinued tolerated decrease oxygen 25 L. -Currently on high per nasal cannula at flow rate 25L/min along with nonrebreather I think we can titrate more aggressively. -See RT notes for titration -Albuterol as needed -Pulmonary hygiene -Pulmonology following CTA chest ordered, patient could not tolerate --covid19 pna; sepsis; -zinc/vitC/D -methylpred 125 mg every 8; wean as appropriate -Infectious disease consulted, -S/p Actemra and remdesivir -Trend temperature and WBC curve -Follow culture data --Oral candidiasis Nystatin solution ordered. Resolving. -- hyponatremia -Last 24 hours -125 -Trend BMP -Replace electrolytes as needed Follow-up labs replace today. -Monitor intake and output -- coagulopathy of covid; on AC -Subcu heparin -Trend CBC-no need for transfusion. -Transfuse for hemoglobin less than 7 -Bilateral lower extremity Doppler ultrasounds negative for DVT ; no CTA or VQ scan to rule out PE -- hyperglycemia; [id number] stable at this time. -glargine HS -SSI AC/HS -Avoid hypoglycemia -- risk for protein gisella malnutrition given inc metabolic demand with resp insufficiency -TPN earlier in hospital admission due to BiPAP however now patient is tolerating p.o. -Patient on a GI soft diet with aspiration precautions -Nutrition following -Bowel regimen: Colace, senna, MiraLAX -PPI --Anxiety Likely due to severe hypoxia Has shown some signs of improvement over the past 24 hours able to wean oxygen some. -Follows commands and RAY -PRN pain and anxiety meds -Patient is [place]-speaking but understands Greek --viral conjunctivitis right eye: Resolved would like drops for her eyes again. States eyes are dry. -Right eye- s/p 5 d course of cipro drops. suspect viral conjunctivitis. lubricating eye drops. supportive management. --Septic shock- resolved -S/p pressors now discontinued -MAP goal 65 -Pressure monitor per protocol Subjective Date of service: 05/25/21 Principal diagnosis: Covid-19 Interval history: Assessment and Plan 50-year-old female past medical history obesity, GERD, hyperlipidemia brought to the hospital due to shortness of breath, fevers, malaise, typical Covid symptoms for approximate 1 week prior to admission and was progressively worse since onset. She is found to have saturations of 86% on presentation. Afebrile since admission with a white count 7.5. Covid test was positive positive along with normal renal function and normal procalcitonin. Chest x-ray: Bilateral pneumonia. Patient initiated on Covid protocol, ID and pulmonary care following 04/17: Patient seen and examined, still uncomfortable with Hypoxic respiratory failure and on oxygen, will continue to steroids therapy, start patient on Remdesivir, ID consulted, Pulmonary consult placed. 04/18: Patient seen and examined, she is currently being changed to High flow NC due to worsening HYPOXIA, will transfer to IMCU, Pulmonary and ID following. Will also give a dose of Lasix today. Monitor Inflammatory markers. 04/19: Patient seen and examined still on high flow due to hypoxia. Appears a bit more comfortable today than yesterday. Cough has decreased in frequency. We will continue high dose Dexameathasone to complete 10 days. continue on Remdesivir 200 mg IV q day x 1 followed by 100 mg IV q day x 4 days -Obtain q48-72h inflammatory markers - ferritin, Ddimer, CRP, LDH Will also give lasix daily for the next 3 days and monitor renal function. Family updated. Continue prone positioning as tolerated 04/20: Patient has some desaturation episodes yesterday was placed on BiPAP. Discussed with ICU team for bed availability for patient to be transferred up. Continue prone position as tolerated. 04/21: Patient remains with profound hypoxia secondary to COVID pneumonia. -Continue steroids -Continue remedesir -S/P Actmera 04/22: Patient remains on steroids and remdesivir. ABG shows persistent hypoxia. We will continue current management additional trial of Lasix for the next few days to see if any improvement. Monitor inflammatory markers as needed. Prognosis is guarded remains on high flow 04/23; patient was treated with remdesivir and Actemra. Continue steroid. Patient's prognosis is guarded. 04/24; patient is on steroid. Patient is currently on BiPAP. Prognosis is guarded. Pulmonary is following. Patient was given Lasix and Ativan. 04/25; continue steroid. Patient was on 40 L of high flow oxygen with saturation was 88%. Pulmonary is following. Prognosis is guarded. Patient was given lasix and ativan. 04/26; patient is on BiPAP and Precedex. Prognosis is guarded. 04/27; patient is on BiPAP and Precedex. Patient will finish steroid today and will start on Solu-Medrol tomorrow. Prognosis is guarded. Blood pressure is better today. Hold Lasix. 04/28 patient is on 100 Fio2 via BIPAP. moderately dyspneic, pulmonary note reviewed, lab results reviewed 04/29 no acute events- see systems review above 04/30 no acute events overnight - on airvo today- TPN started -see systems review above 05-01 no acute events overnight- tolerating airvo- see systems review above 05-02 no acute events overnight; tolerating airvo this AM- see systems review above 05/03: Patient has shown remarkable improvement, weaned down to 3 L and satting 95%. Will attempt to walk test today in anticipation for discharge tomorrow. Discussed with PT team to walk the patient today also. 05/04: Patient appears to have had a decline he was down to 3 L satting 95% with anticipation for discharge today but desatted down to 85% on room air and only 88% on 5 L he is now back at 8 L. I encourage incentive spirometer. While he is on Xarelto and has completed the severe steroids which was subsequently changed to Solu-Medrol I will go ahead and order a CTA to make sure that there is not a failure of Xarelto. We will continue to wean as tolerated discussed with nursing staff at bedside. 05/05/21 Patient is on 40 L of oxygen with 80% FiO2. Patient is encouraged to turn to the side more frequently. Patient is denied any shortness of breath and coughing. No other complaints. Follow the CT scan of the chest. Status post remdesivir and Actemra.Solu-Medrol 40 mg IV every 8 hours. Continue current management. Pulmonary follow-up. 05/06: Patient remains on high flow nasal cannula but states that she feels slightly better with the help of translation from her cousin [place]. Patient is still awaiting a bed on the floor. Patient diet is being tolerated now so we will stop TPN will be stopped tonight. 05/07/2021: Patient remains on 40 L/min oxygen at 90% FiO2. Attempt made for CTA chest to rule out pulmonary embolism however patient desatted while at CT. [place] dy was aborted, will reattempt again tomorrow. will follow along with pulm recs. Discussed/updated patient and patient's daughter over phone regarding any active clinical issues. Patient only complaint is oral pain from oral candidiasis noted on exam. Nystatin oral solution ordered. Daughter also voiced concern over patient eye drops which she stated that patient needed to restart from home. However she did not remember name of drops. advised daughter to call our hospital with drop name and dosing and we will restart. 05/08/2021: Started anticoagulation with Lovenox yesterday. Awaiting CTA chest completion. Will attempt to de-escalate oxygen as patient tolerates 05/09/2021: Continues to have high O2 requirements. CTA chest aborted due to patient not being able to tolerate transport to and from scanner. Will follow pulmonology recommendations 05/10/2021: Steroids increased yesterday to 125 mg every 8 hour. Continuing full dose anticoagulation. Respiratory status still remains challenging as it is difficult to wean patient off of hifnc. Minimal improvement compared to last few days. Plan to prone patient today. Otherwise: Some improvement in eye symptoms compared to yesterday. Will order more lubricating eye drops 05/11/2021: Still requires high flow nasal cannula, FiO2 de-escalated to 85%.. Encourage continued proning, patient care team aware. Continue with steroids, anticoagulation, antibiotics. 05/12/2021: High flow nasal cannula remains at flow rate 35 L/min and FiO2 of 85%. Patient appears more comfortable today. Started insulin regimen due to hyperglycemia likely multifactorial in the setting of underlying diabetes and high-dose steroids. Continue to encourage patient to prone. Discussed with pulmonology regarding patient underlying anxiety. We both agreed that low-dose BuSpar might be beneficial for the patient. 05/13/2020: hypoxic resp distress overnight. cpap ordered. Current settings on encounter 30/04 at 100% FIO2. Advised care (RN, RT, PT) team to continue to aggressively work with patient as far as proning. Patient can sit at side of bed and rest on bedside tray w/ pillow in "Rodin's thinker pose". continue high dose steroids, PRN ativan for anxiety, Buspar noted in pulm recs. 05/14/21: Patient remains on 100% O2 with high flow. Follow inflammatory markers, wean FiO2 as tolerated, guarded prognosis 05/15: Patient on 40 L high flow O2 today-requiring nonrebreather intermittently, continue to follow inflammatory markers and wean off O2 as tolerated, guarded prognosis. 05/16:-Remains on high flow O2 along with nonrebreather, continue to follow inflammatory markers and wean off O2 as tolerated, pulmonary and ID following. Guarded prognosis, patient requiring higher concentration of O2 and unable to wean off. 05/17: Persistently recurring higher concentration O2. Patient on both high flow oxygen and nonrebreather. Poor prognosis, continue to follow inflammatory markers. ID and pulmonary care following. Updated family. 05/18: Patient remains on nonrebreather and high flow O2, Prone if possible. Wean FiO2 for sats >88%. Prognosis is very very guarded. Follow inflammatory markers. 05/19: Wean FiO2 for sats >88%. Patient remains on nonrebreather and high flow O2, Prone if possible. Follow inflammatory markers. Prognosis is very very guarded. 05/20: Patient remains on high flow O2 along with nonrebreather. Guarded prognosis. Wean off O2 as tolerated. Pulmonary and ID following 05/20 patient remains on high flow O2 with nonrebreather. Was not able to tolerate weaning today. Prognosis remains poor. 05/23. Patient remains on high flow O2 with nasal cannula at this time. Did not try to wean patient at all today. Patient was talking on the phone with director wholesale and myself in full sentences without hypoxemia. Complained of some neck stiffness and soreness from laying in bed too long. All questions and concerns answered to patient's satisfaction 05/24/2021. Patient was able to decrease from 30 L to 25 L today. Tolerated decrease without any difficulty. Patient feels well today. Better today. Tolerated physical therapy today. Spoke with family member through translation. Did not need much because of [place] and language. 05/25/2021. No new changes patient tolerated decrease in high flow O2 from 30 to 25 L. Will decrease to 20 L today. Patient actively doing physical therapy tod ay tolerated well. All questions and concerns answered through director wholesale. Objective - Constitutional Vitals: Vital Signs - 12hr 05/24/21 05/25/21 05/25/21 23:05 02:00 04:59 Temperature 97.5 F L 97.5 F L Pulse Rate 82 103 H Respiratory 18 18 Rate Blood Pressure 113/65 131/64 O2 Sat by Pulse 94 96 89 Oximetry General appearance: Present: no acute distress - EENT Eyes: PERRL, EOM intact ENT: hearing intact, clear oral mucosa - Respiratory Respiratory: bilateral: diminished, rales - Cardiovascular Rhythm: regular Heart Sounds: Present: S1 & S2. Absent: gallop, rub - Gastrointestinal General gastrointestinal: Present: soft, non-tender, non-distended, normal bowel sounds - Neurologic Neurologic: CNII-XII intact, moves all extremities - Psychiatric Psychiatric: memory intact, appropriate mood/affect, intact judgment & insight - Labs CBC & Chem 7: 05/20/21 08:01 05/20/21 08:01 Labs: Abnormal lab results 05/24/21 05/24/21 05/24/21 Range/Units 11:17 17:51 21:26 POC Glucose 308 H 175 H 198 H (70-105) mg/dL 05/25/21 Range/Units 08:14 POC Glucose 203 H (70-105) mg/dL
[2021-05-25] MEDS: ASCORBIC ACID 500 MG TAB PO SCH (10:17)
[2021-05-25] MEDS: CHOLECALCIFEROL (VIT D3) 1000 UNIT (25 mcg) TAB PO SCH (10:17)
[2021-05-25] MEDS: POLYETHYLENE GLYCOL 3350 17 GM POWDER PO SCH (10:17)
[2021-05-26] MEDS: INSULIN LISPRO 100 UNIT/ML SUB-Q SCH ×4 (00:12→17:15)
[2021-05-26] MEDS: methylPREDNISolone Sod Succinate 125 MG/2 ML INJ IV SCH ×3 (06:52→23:45)
[2021-05-26] MEDS: MINERAL OIL/PETROLATUM, WHITE OPHTH OINT 3.5 GM OU SCH ×3 (06:56→23:43)
[2021-05-26] MEDS: MOXIFLOXACIN 0.5% OPHTH SOLN 3ML OU SCH ×3 (06:56→23:44)
--- NOTE | 2021-05-26 08:59 | Progress Note ---
Assessment and Plan -Acute hypoxic resp failure due to covid19 -S/p BiPAP, now discontinued tolerated decrease oxygen 25 L. -Currently on high per nasal cannula at flow rate 25L/min along with nonrebreather I think we can titrate more aggressively. -See RT notes for titration -Albuterol as needed -Pulmonary hygiene -Pulmonology following CTA chest ordered, patient could not tolerate --covid19 pna; sepsis; -zinc/vitC/D -methylpred 125 mg every 8; wean as appropriate -Infectious disease consulted, -S/p Actemra and remdesivir -Trend temperature and WBC curve -Follow culture data --Oral candidiasis Nystatin solution ordered. Resolving. -- hyponatremia -Last 24 hours -125 -Trend BMP-repeat BMP today. Does not need 1 every day -Replace electrolytes as needed Follow-up labs replace today. -Monitor intake and output -- coagulopathy of covid; on AC -Subcu heparin -Trend CBC-no need for transfusion. -Transfuse for hemoglobin less than 7 -Bilateral lower extremity Doppler ultrasounds negative for DVT ; no CTA or VQ scan to rule out PE -- hyperglycemia; pttnpqg-Dolc-Prhnw stable at this time. -glargine HS -SSI AC/HS -Avoid hypoglycemia -- risk for protein gisella malnutrition given inc metabolic demand with resp insufficiency -TPN earlier in hospital admission due to BiPAP however now patient is tolerating p.o. -Patient on a GI soft diet with aspiration precautions -Nutrition following -Bowel regimen: Colace, senna, MiraLAX -PPI --Anxiety Likely due to severe hypoxia Has shown some signs of improvement over the past 24 hours able to wean oxygen some. -Follows commands and RAY -PRN pain and anxiety meds -Patient is Kinyar[place]-speaking but understands Jamaican Added Ambien for insomnia. --viral conjunctivitis right eye: Resolved would like drops for her eyes again. States eyes are dry. -Right eye- s/p 5 d course of cipro drops. suspect viral conjunctivitis. lubricating eye drops. supportive management. Erythema has resolved --Septic shock- resolved -S/p pressors now discontinued -MAP goal 65 -Pressure monitor per protocol Subjective Date of service: 05/26/21 Principal diagnosis: Covid-19 Interval history: Assessment and Plan 50-year-old female past medical history obesity, GERD, hyperlipidemia brought to the hospital due to shortness of breath, fevers, malaise, typical Covid symptoms for approximate 1 week prior to admission and was progressively worse since onset. She is found to have saturations of 86% on presentation. Afebrile since admission with a white count 7.5. Covid test was positive positive along with normal renal function and normal procalcitonin. Chest x-ray: Bilateral pneumonia. Patient initiated on Covid protocol, ID and pulmonary care following 04/17: Patient seen and examined, still uncomfortable with Hypoxic respiratory failure and on oxygen, will continue to steroids therapy, start patient on Remdesivir, ID consulted, Pulmonary consult placed. 04/18: Patient seen and examined, she is currently being changed to High flow NC due to worsening HYPOXIA, will transfer to IMCU, Pulmonary and ID following. Will also give a dose of Lasix today. Monitor Inflammatory markers. 04/19: Patient seen and examined still on high flow due to hypoxia. Appears a bit more comfortable today than yesterday. Cough has decreased in frequency. We will continue high dose Dexameathasone to complete 10 days. continue on Remdesivir 200 mg IV q day x 1 followed by 100 mg IV q day x 4 days -Obtain q48-72h inflammatory markers - ferritin, Ddimer, CRP, LDH Will also give lasix daily for the next 3 days and monitor renal function. Family updated. Continue prone positioning as tolerated 04/20: Patient has some desaturation episodes yesterday was placed on BiPAP. Discussed with ICU team for bed availability for patient to be transferred up. Continue prone position as tolerated. 04/21: Patient remains with profound hypoxia secondary to COVID pneumonia. -Continue steroids -Continue remedesir -S/P Actmera 04/22: Patient remains on steroids and remdesivir. ABG shows persistent hypoxia. We will continue current management additional trial of Lasix for the next few days to see if any improvement. Monitor inflammatory markers as needed. Prognosis is guarded remains on high flow 04/23; patient was treated with remdesivir and Actemra. Continue steroid. Patient's prognosis is guarded. 04/24; patient is on steroid. Patient is currently on BiPAP. Prognosis is guarded. Pulmonary is following. Patient was given Lasix and Ativan. 04/25; continue steroid. Patient was on 40 L of high flow oxygen with saturation was 88%. Pulmonary is following. Prognosis is guarded. Patient was given lasix and ativan. 04/26; patient is on BiPAP and Precedex. Prognosis is guarded. 04/27; patient is on BiPAP and Precedex. Patient will finish steroid today and will start on Solu-Medrol tomorrow. Prognosis is guarded. Blood pressure is better today. Hold Lasix. 04/28 patient is on 100 Fio2 via BIPAP. moderately dyspneic, pulmonary note reviewed, lab results reviewed 04/29 no acute events- see systems review above 04/30 no acute events overnight - on airvo today- TPN started -see systems review above 05-01 no acute events overnight- tolerating airvo- see systems review above 05-02 no acute events overnight; tolerating airvo this AM- see systems review above 05/03: Patient has shown remarkable improvement, weaned down to 3 L and satting 95%. Will attempt to walk test today in anticipation for discharge tomorrow. Discussed with PT team to walk the patient today also. 05/04: Patient appears to have had a decline he was down to 3 L satting 95% with anticipation for discharge today but desatted down to 85% on room air and only 88% on 5 L he is now back at 8 L. I encourage incentive spirometer. While he is on Xarelto and has completed the severe steroids which was subsequently changed to Solu-Medrol I will go ahead and order a CTA to make sure that there is not a failure of Xarelto. We will continue to wean as tolerated discussed with nursing staff at bedside. 05/05/21 Patient is on 40 L of oxygen with 80% FiO2. Patient is encouraged to turn to the side more frequently. Patient is denied any shortness of breath and coughing. No other complaints. Follow the CT scan of the chest. Status post remdesivir and Actemra.Solu-Medrol 40 mg IV every 8 hours. Continue current management. Pulmonary follow-up. 05/06: Patient remains on high flow nasal cannula but states that she feels slightly better with the help of translation from her cousin [place]en. Patient is still awaiting a bed on the floor. Patient diet is being tolerated now so we will stop TPN will be stopped tonight. 05/07/2021: Patient remains on 40 L/min oxygen at 90% FiO2. Attempt made for CTA chest to rule out pulmonary embolism however patient desatted while at CT. Study was aborted, will reattempt again tomorrow. will follow along with pulm recs. Discussed/updated patient and patient's daughter over phone regarding any active clinical issues. Patient only complaint is oral pain from oral candidiasis noted on exam. Nystatin oral solution ordered. Daughter also voiced concern over patient eye drops which she stated that patient needed to restart from home. However she did not remember name of drops. advised daughter to call our hospital with drop name and dosing and we will restart. 05/08/2021: Started anticoagulation with Lovenox yesterday. Awaiting CTA chest completion. Will attempt to de-escalate oxygen as patient tolerates 05/09/2021: Continues to have high O2 requirements. CTA chest aborted due to patient not being able to tolerate transport to and from scanner. Will follow pulmonology recommendations 05/10/2021: Steroids increased yesterday to 125 mg every 8 hour. Continuing full dose anticoagulation. Respiratory status still remains challenging as it is difficult to wean patient off of hifnc. Minimal improvement compared to last few days. Plan to prone patient today. Otherwise: Some improvement in eye symptoms compared to yesterday. Will order more lubricating eye drops 05/11/2021: Still requires high flow nasal cannula, FiO2 de-escalated to 85%.. Encourage continued proning, patient care team aware. Continue with steroids, anticoagulation, antibiotics. 05/12/2021: High flow nasal cannula remains at flow rate 35 L/min and FiO2 of 85%. Patient appears more comfortable today. Started insulin regimen due to hyperglycemia likely multifactorial in the setting of underlying diabetes and high-dose steroids. Continue to encourage patient to prone. Discussed with pulmonology regarding patient underlying anxiety. We both agreed that low-dose BuSpar might be beneficial for the patient. 05/13/2020: hypoxic resp distress overnight. cpap ordered. Current settings on encounter 30/04 at 100% FIO2. Advised care (RN, RT, PT) team to continue to aggressively work with patient as far as proning. Patient can sit at side of bed and rest on bedside tray w/ pillow in "Rodin's thinker pose". continue high dose steroids, PRN ativan for anxiety, Buspar noted in pulm recs. 05/14/21: Patient remains on 100% O2 with high flow. Follow inflammatory markers, wean FiO2 as tolerated, guarded prognosis 05/15: Patient on 40 L high flow O2 today-requiring nonrebreather intermittently, continue to follow inflammatory markers and wean off O2 as tolerated, guarded prognosis. 05/16:-Remains on high flow O2 along with nonrebreather, continue to follow inflammatory markers and wean off O2 as tolerated, pulmonary and ID following. Guarded prognosis, patient requiring higher concentration of O2 and unable to wean off. 05/17: Persistently recurring higher concentration O2. Patient on both high flow oxygen and nonrebreather. Poor prognosis, continue to follow inflammatory markers. ID and pulmonary care following. Updated family. 05/18: Patient remains on nonrebreather and high flow O2, Prone if possible. Wean FiO2 for sats >88%. Prognosis is very very guarded. Follow inflammatory markers. 05/19: Wean FiO2 for sats >88%. Patient remains on nonrebreather and high flow O2, Prone if possible. Follow inflammatory markers. Prognosis is very very guarded. 05/20: Patient remains on high flow O2 along with nonrebreather. Guarded prognosis. Wean off O2 as tolerated. Pulmonary and ID following 05/20 patient remains on high flow O2 with nonrebreather. Was not able to tolerate weaning today. Prognosis remains poor. 05/23. Patient remains on high flow O2 with nasal cannula at this time. Did not try to wean patient at all today. Patient was talking on the phone with director of special events and myself in full sentences without hypoxemia. Complained of some neck stiffness and soreness from laying in bed too long. All questions and concerns answered to patient's satisfaction 05/24/2021. Patient was able to decrease from 30 L to 25 L today. Tolerated decrease without any difficulty. Patient feels well today. Better today. T olerated physical therapy today. Spoke with family member through translation. Did not need much because of Kiny[place] and language. 05/25/2021. No new changes patient tolerated decrease in high flow O2 from 30 to 25 L. Will decrease to 20 L today. Patient actively doing physical therapy today tolerated well. All questions and concerns answered through director of special events. 05/26/2021. Patient tolerated change from 30 high flow O2 to 25 L high flow O2. Will decrease to 20 today. Hospital course complicated by complaints of insomnia. Objective - Constitutional Vitals: Vital Signs - 12hr 05/25/21 05/25/21 05/25/21 21:34 22:03 22:09 Temperature 97.4 F L Pulse Rate 89 56 L Respiratory 18 Rate Blood Pressure 104/68 O2 Sat by Pulse 95 96 95 Oximetry 05/26/21 05/26/21 04:01 05:08 Temperature 98.2 F Pulse Rate 86 Respiratory 18 Rate Blood Pressure 132/72 O2 Sat by Pulse 98 94 Oximetry General appearance: Present: no acute distress - EENT Eyes: PERRL, EOM intact ENT: hearing intact, clear oral mucosa - Respiratory Respiratory: bilateral: diminished, rhonchi - Cardiovascular Rhythm: regular Heart Sounds: Present: S1 & S2. Absent: gallop, rub Extremities: pulses intact, No edema, normal color, Full ROM - Musculoskeletal Musculoskeletal: generalized weakness - Neurologic Neurologic: other (Debility) - Psychiatric Psychiatric: memory intact, appropriate mood/affect, intact judgment & insight - Labs CBC & Chem 7: 05/20/21 08:01 05/20/21 08:01 Labs: Abnormal lab results 05/25/21 05/25/21 05/25/21 Range/Units 11:13 17:13 21:03 POC Glucose 339 H 235 H 263 H (70-105) mg/dL 05/26/21 Range/Units 07:33 POC Glucose 156 H (70-105) mg/dL
[2021-05-26] MEDS: FAMOTIDINE 20 MG TAB PO SCH ×2 (09:38→23:45)
[2021-05-26] MEDS: ASCORBIC ACID 500 MG TAB PO SCH (09:38)
[2021-05-26] MEDS: CHOLECALCIFEROL (VIT D3) 1000 UNIT (25 mcg) TAB PO SCH (09:38)
[2021-05-26] MEDS: ZINC SULFATE 220 MG CAP PO SCH ×2 (09:38→23:46)
[2021-05-26] MEDS: DOCUSATE SODIUM 100 MG CAP PO SCH ×2 (09:38→23:43)
[2021-05-26] MEDS: POLYETHYLENE GLYCOL 3350 17 GM POWDER PO SCH (09:39)
[2021-05-26] MEDS: INSULIN GLARGINE 100 UNITS/ML SUB-Q SCH ×2 (10:15→23:44)
[2021-05-26] MEDS: LORazepam 2 MG/ML VIAL IV PRN (12:27)
[2021-05-26] MEDS: ENOXAPARIN 40 MG/0.4 ML INJ SUB-Q SCH (23:43)
[2021-05-26] MEDS: SENNOSIDES 8.6 MG TAB PO SCH (23:45)
[2021-05-27] MEDS: INSULIN LISPRO 100 UNIT/ML SUB-Q SCH ×5 (00:07→23:55)
[2021-05-27] MEDS: ZOLPIDEM 5 MG TAB PO PRN ×2 (00:08→23:57)
[2021-05-27] MEDS: methylPREDNISolone Sod Succinate 125 MG/2 ML INJ IV SCH ×3 (06:45→23:56)
[2021-05-27] MEDS: MOXIFLOXACIN 0.5% OPHTH SOLN 3ML OU SCH ×3 (06:46→23:58)
[2021-05-27] MEDS: MINERAL OIL/PETROLATUM, WHITE OPHTH OINT 3.5 GM OU SCH ×3 (06:47→23:57)
--- NOTE | 2021-05-27 08:12 | Progress Note ---
Assessment and Plan -Acute hypoxic resp failure due to covid19 -S/p BiPAP, now discontinued tolerated decrease oxygen 20 L. Tolerated well now only on nasal cannula. -Currently on high per nasal cannula at flow rate 20. Discontinue nonrebreather. I think we can titrate more aggressively. -See RT notes for titration -Albuterol as needed -Pulmonary hygiene -Pulmonology following CTA chest ordered, patient could not tolerate --covid19 pna; sepsis; -zinc/vitC/D -methylpred 125 mg every 8; wean as appropriate -Infectious disease consulted, -S/p Actemra and remdesivir -Trend temperature and WBC curve -Follow culture data --Oral candidiasis Nystatin solution ordered. Resolving. -- hyponatremia -Last 24 hours -125 -Trend BMP-repeat BMP today. Does not need 1 every day -Replace electrolytes as needed Follow-up labs replace today. -Monitor intake and output -- coagulopathy of covid; on AC -Subcu heparin -Trend CBC-no need for transfusion. -Transfuse for hemoglobin less than 7 -Bilateral lower extremity Doppler ultrasounds negative for DVT ; no CTA or VQ scan to rule out PE -- hyperglycemia; qszsszo-Zohc-Arjtv stable at this time. -glargine HS -SSI AC/HS -Avoid hypoglycemia -- risk for protein gisella malnutrition given inc metabolic demand with resp insufficiency -TPN earlier in hospital admission due to BiPAP however now patient is t olerating p.o. -Patient on a GI soft diet with aspiration precautions -Nutrition following -Bowel regimen: Colace, senna, MiraLAX -PPI --Anxiety Likely due to severe hypoxia Has shown some signs of improvement over the past 24 hours able to wean oxygen some. -Follows commands and RAY -PRN pain and anxiety meds -Patient is [place]ic-speaking but understands P[place]dein[place] Added Ambien for insomnia. --viral conjunctivitis right eye: Resolved would like drops for her eyes again. States eyes are dry. -Right eye- s/p 5 d course of cipro drops. suspect viral conjunctivitis. lubricating eye drops. supportive management. Erythema has resolved --Septic shock- resolved -S/p pressors now discontinued -MAP goal 65 -Pressure monitor per protocol Subjective Date of service: 05/27/21 Principal diagnosis: Covid-19 Interval history: Assessment and Plan 50-year-old female past medical history obesity, GERD, hyperlipidemia brought to the hospital due to shortness of breath, fevers, malaise, typical Covid symptoms for approximate 1 week prior to admission and was progressively worse since onset. She is found to have saturations of 86% on presentation. Afebrile since admission with a white count 7.5. Covid test was positive positive along with normal renal function and normal procalcitonin. Chest x-ray: Bilateral pneumonia. Patient initiated on Covid protocol, ID and pulmonary care following 04/17: Patient seen and examined, still uncomfortable with Hypoxic respiratory tolu lure and on oxygen, will continue to steroids therapy, start patient on Remdesivir, ID consulted, Pulmonary consult placed. 04/18: Patient seen and examined, she is currently being changed to High flow NC due to worsening HYPOXIA, will transfer to IMCU, Pulmonary and ID following. Will also give a dose of Lasix today. Monitor Inflammatory markers. 04/19: Patient seen and examined still on high flow due to hypoxia. Appears a bit more comfortable today than yesterday. Cough has decreased in frequency. We will continue high dose Dexameathasone to complete 10 days. continue on Remdesivir 200 mg IV q day x 1 followed by 100 mg IV q day x 4 days -Obtain q48-72h inflammatory markers - ferritin, Ddimer, CRP, LDH Will also give lasix daily for the next 3 days and monitor renal function. Family updated. Continue prone positioning as tolerated 04/20: Patient has some desaturation episodes yesterday was placed on BiPAP. Discussed with ICU team for bed availability for patient to be transferred up. Continue prone position as tolerated. 04/21: Patient remains with profound hypoxia secondary to COVID pneumonia. -Continue steroids -Continue remedesir -S/P Actmera 04/22: Patient remains on steroids and remdesivir. ABG shows persistent hypoxia. We will continue current management additional trial of Lasix for the next few days to see if any improvement. Monitor inflammatory markers as needed. Prognosis is guarded remains on high flow 04/23; patient was treated with remdesivir and Actemra. Continue steroid. Patient's prognosis is guarded. 04/24; patient is on steroid. Patient is currently on BiPAP. Prognosis is guarded. Pulmonary is following. Patient was given Lasix and Ativan. 04/25; continue steroid. Patient was on 40 L of high flow oxygen with saturation was 88%. Pulmonary is following. Prognosis is guarded. Patient was given lasix and ativan. 04/26; patient is on BiPAP and Precedex. Prognosis is guarded. 04/27; patient is on BiPAP and Precedex. Patient will finish steroid today and will start on Solu-Medrol tomorrow. Prognosis is guarded. Blood pressure is be tter today. Hold Lasix. 04/28 patient is on 100 Fio2 via BIPAP. moderately dyspneic, pulmonary note reviewed, lab results reviewed 04/29 no acute events- see systems review above 04/30 no acute events overnight - on airvo today- TPN started -see systems review above 05-01 no acute events overnight- tolerating airvo- see systems review above 05-02 no acute events overnight; tolerating airvo this AM- see systems review above 05/03: Patient has shown remarkable improvement, weaned down to 3 L and satting 95%. Will attempt to walk test today in anticipation for discharge tomorrow. Discussed with PT team to walk the patient today also. 05/04: Patient appears to have had a decline he was down to 3 L satting 95% with anticipation for discharge today but desatted down to 85% on room air and only 88% on 5 L he is now back at 8 L. I encourage incentive spirometer. While he is on Xarelto and has completed the severe steroids which was subsequently changed to Solu-Medrol I will go ahead and order a CTA to make sure that there is not a failure of Xarelto. We will continue to wean as tolerated discussed with nursing staff at bedside. 05/05/21 Patient is on 40 L of oxygen with 80% FiO2. Patient is encouraged to turn to the side more frequently. Patient is denied any shortness of breath and coughing. No other complaints. Follow the CT scan of the chest. Status post remdesivir and Actemra.Solu-Medrol 40 mg IV every 8 hours. Continue current management. Pulmonary follow-up. 05/06: Patient remains on high flow nasal cannula but states that she feels slightly better with the help of translation from her cousin Aspen. Patient is still awaiting a bed on the floor. Patient diet is being tolerated now so we will stop TPN will be stopped tonight. 05/07/2021: Patient remains on 40 L/min oxygen at 90% FiO2. Attempt made for CTA chest to rule out pulmonary embolism however patient desatted while at CT. Study was aborted, will reattempt again tomorrow. will follow along with pulphil bertrand. Discussed/updated patient and patient's daughter over phone regarding any active clinical issues. Patient only complaint is oral pain from oral candidiasis noted on exam. Nystatin oral solution ordered. Daughter also voiced concern over patient eye drops which she stated that patient needed to restart from home. However she did not remember name of drops. advised daughter to call our hospital with drop name and dosing and we will restart. 05/08/2021: Started anticoagulation with Lovenox yesterday. Awaiting CTA chest completion. Will attempt to de-escalate oxygen as patient tolerates 05/09/2021: Continues to have high O2 requirements. CTA chest aborted due to patient not being able to tolerate transport to and from scanner. Will follow pulmonology recommendations 05/10/2021: Steroids increased yesterday to 125 mg every 8 hour. Continuing full dose anticoagulation. Respiratory status still remains challenging as it is difficult to wean patient off of hifnc. Minimal improvement compared to last few days. Plan to prone patient today. Otherwise: Some improvement in eye symptoms compared to yesterday. Will order more lubricating eye drops 05/11/2021: Still requires high flow nasal cannula, FiO2 de-escalated to 85%.. Encourage continued proning, patient care team aware. Continue with steroids, anticoagulation, antibiotics. 05/12/2021: High flow nasal cannula remains at flow rate 35 L/min and FiO2 of 85%. Patient appears more comfortable today. Started insulin regimen due to hyperglycemia likely multifactorial in the setting of underlying diabetes and high-dose steroids. Continue to encourage patient to prone. Discussed with pulmonology regarding patient underlying anxiety. We both agreed that low-dose BuSpar might be beneficial for the patient. 05/13/2020: hypoxic resp distress overnight. cpap ordered. Current settings on encounter 30/04 at 100% FIO2. Advised care (RN, RT, PT) team to continue to aggressively work with patient as far as proning. Patient can sit at side of bed and rest on bedside tray w/ pillow in "Rodin's thinker pose". continue high dose steroids, PRN ativan for anxiety, Buspar noted in pulm recs. 05/14/21: Patient remains on 100% O2 with high flow. Follow inflammatory markers, wean FiO2 as tolerated, guarded prognosis 05/15: Patient on 40 L high flow O2 today-requiring nonrebreather intermittently, continue to follow inflammatory markers and wean off O2 as tolerated, guarded prognosis. 05/16:-Remains on high flow O2 along with nonrebreather, continue to follow inflammatory markers and wean off O2 as tolerated, pulmonary and ID following. Guarded prognosis, patient requiring higher concentration of O2 and unable to wean off. 05/17: Persistently recurring higher concentration O2. Patient on both high flow oxygen and nonrebreather. Poor prognosis, continue to follow inflammatory markers. ID and pulmonary care following. Updated family. 05/18: Patient remains on nonrebreather and high flow O2, Prone if possible. Wean FiO2 for sats >88%. Prognosis is very very guarded. Follow inflammatory markers. 05/19: Wean FiO2 for sats >88%. Patient remains on nonrebreather and high flow O2, Prone if possible. Follow inflammatory markers. Prognosis is very very guarded. 05/20: Patient remains on high flow O2 along with nonrebreather. Guarded prognosis. Wean off O2 as tolerated. Pulmonary and ID following 05/20 patient remains on high flow O2 with nonrebreather. Was not able to tolerate weaning today. Prognosis remains poor. 05/23. Patient remains on high flow O2 with nasal cannula at this time. Did not try to wean patient at all today. Patient was talking on the phone with table top tile setter and myself in full sentences without hypoxemia. Complained of some neck stiffness and soreness from laying in bed too long. All questions and concerns answered to patient's satisfaction 05/24/2021. Patient was able to decrease from 30 L to 25 L today. Tolerated decrease without any difficulty. Patient feels well today. Better today. Tolerated physical therapy today. Spoke with family member through translation. Did not need much because of [place]ic and language. 05/25/2021. No new changes patient tolerated decrease in high flow O2 from 30 to 25 L. Will decrease to 20 L today. Patient actively doing physical therapy today tolerated well. All questions and concerns answered through table top tile setter. 05/26/2021. Patient tolerated change from 30 high flow O2 to 25 L high flow O2. Will decrease to 20 today. Hospital course complicated by complaints of insomnia. 05/28/2021. No new concerns today. Patient tolerated decrease in O2 from 25-20. Continue to wean as tolerated. Insomnia better with Ambien. Patient was able to stop nonrebreather yesterday and now only on nasal cannula. Objective - Constitutional Vitals: Vital Signs - 12hr 05/26/21 05/26/21 05/26/21 20:59 21:01 22:00 Temperature 98.0 F 98.0 F Pulse Rate 107 H 103 H Respiratory 18 18 Rate Blood Pressure 126/68 O2 Sat by Pulse 92 92 97 Oximetry 05/27/21 02:00 Temperature Pulse Rate Respiratory Rate Blood Pressure O2 Sat by Pulse 97 Oximetry General appearance: Present: no acute distress - EENT Eyes: PERRL, EOM intact ENT: hearing intact, clear oral mucosa - Respiratory Respiratory: bilateral: diminished, rhonchi - Cardiovascular Rhythm: regular Extremities: pulses intact, No edema, normal color, Full ROM - Integumentary Integumentary: clear, warm, dry - Musculoskeletal Musculoskeletal: generalized weakness - Neurologic Neurologic: moves all extremities - Psychiatric Psychiatric: memory intact, appropriate mood/affect, intact judgment & insight - Labs CBC & Chem 7: 05/20/21 08:01 05/20/21 08:01 Labs: Abnormal lab results 05/26/21 05/26/21 05/26/21 Range/Units 11:19 16:26 20:55 POC Glucose 288 H 286 H 293 H (70-105) mg/dL 05/27/21 Range/Units 07:38 POC Glucose 115 H (70-105) mg/dL
[2021-05-27] MEDS: ZINC SULFATE 220 MG CAP PO SCH ×2 (10:24→23:56)
[2021-05-27] MEDS: FAMOTIDINE 20 MG TAB PO SCH ×2 (10:24→23:57)
[2021-05-27] MEDS: CHOLECALCIFEROL (VIT D3) 1000 UNIT (25 mcg) TAB PO SCH (10:24)
[2021-05-27] MEDS: DOCUSATE SODIUM 100 MG CAP PO SCH ×2 (10:24→23:57)
[2021-05-27] MEDS: POLYETHYLENE GLYCOL 3350 17 GM POWDER PO SCH ×2 (10:24→10:49)
[2021-05-27] MEDS: ASCORBIC ACID 500 MG TAB PO SCH (10:24)
[2021-05-27] MEDS: INSULIN GLARGINE 100 UNITS/ML SUB-Q SCH ×2 (11:58→23:54)
[2021-05-27] MEDS: SENNOSIDES 8.6 MG TAB PO SCH (23:55)
[2021-05-27] MEDS: ENOXAPARIN 40 MG/0.4 ML INJ SUB-Q SCH (23:55)
[2021-05-28] MEDS: ACETAMINOPHEN 325 MG TAB PO PRN ×2 (00:12→22:57)
[2021-05-28] MEDS: MINERAL OIL/PETROLATUM, WHITE OPHTH OINT 3.5 GM OU SCH ×3 (06:00→23:05)
[2021-05-28] MEDS: MOXIFLOXACIN 0.5% OPHTH SOLN 3ML OU SCH ×3 (06:00→23:05)
[2021-05-28] MEDS: methylPREDNISolone Sod Succinate 125 MG/2 ML INJ IV SCH ×3 (06:00→22:58)
[2021-05-28] MEDS: INSULIN LISPRO 100 UNIT/ML SUB-Q SCH ×4 (07:30→22:55)
--- NOTE | 2021-05-28 08:14 | Progress Note ---
Assessment and Plan -Acute hypoxic resp failure due to covid19 -S/p BiPAP, now discontinued tolerated decrease oxygen 20 L. Tolerated well now only on nasal cannula. -Currently on high per nasal cannula at flow rate 20. Discontinue nonrebreather. I think we can titrate more aggressively. -See RT notes for titration -Albuterol as needed -Pulmonary hygiene -Pulmonology following CTA chest ordered, patient could not tolerate --covid19 pna; sepsis; -zinc/vitC/D -methylpred 125 mg every 8; wean as appropriate -Infectious disease consulted, -S/p Actemra and remdesivir -Trend temperature and WBC curve -Follow culture data --Oral candidiasis Nystatin solution ordered. Resolving. -- hyponatremia -Last 24 hours -125 -Trend BMP-repeat BMP today. Does not need 1 every day -Replace electrolytes as needed Follow-up labs replace today. -Monitor intake and output -- coagulopathy of covid; on AC -Subcu heparin -Trend CBC-no need for transfusion. -Transfuse for hemoglobin less than 7 -Bilateral lower extremity Doppler ultrasounds negative for DVT ; no CTA or VQ scan to rule out PE -- hyperglycemia; bjnhmew-[id number]-Wzlre stable at this time. -glargine HS -SSI AC/HS -Avoid hypoglycemia -- risk for protein gisella malnutrition given inc metabolic demand with resp insufficiency -TPN earlier in hospital admission due to BiPAP however now patient is t olerating p.o. -Patient on a GI soft diet with aspiration precautions -Nutrition following -Bowel regimen: Colace, senna, MiraLAX -PPI --Anxiety Likely due to severe hypoxia Has shown some signs of improvement over the past 24 hours able to wean oxygen some. -Follows commands and RAY -PRN pain and anxiety meds -Patient is Turkish-speaking but understands [place] Added Ambien for insomnia. Anxiety resolving. --viral conjunctivitis right eye: Resolved would like drops for her eyes again. States eyes are dry. -Right eye- s/p 5 d course of cipro drops. suspect viral conjunctivitis. lubricating eye drops. supportive management. Erythema has resolved --Septic shock- resolved -S/p pressors now discontinued -MAP goal 65 -Pressure monitor per protocol Subjective Date of service: 05/28/21 Principal diagnosis: Covid-19 Interval history: Assessment and Plan 50-year-old female past medical history obesity, GERD, hyperlipidemia brought to the hospital due to shortness of breath, fevers, malaise, typical Covid symptoms for approximate 1 week prior to admission and was progressively worse since onset. She is found to have saturations of 86% on presentation. Afebrile since admission with a white count 7.5. Covid test was positive positive along with normal renal function and normal procalcitonin. Chest x-ray: Bilateral pneumonia. Patient initiated on Covid protocol, ID and pulmonary care following 04/17: Patient seen and examined, still uncomfortable with Hypoxic respiratory failure and on oxygen, will continue to steroids therapy, start patient on Remdesivir, ID consulted, Pulmonary consult placed. 04/18: Patient seen and examined, she is currently being changed to High flow NC due to worsening HYPOXIA, will transfer to IMCU, Pulmonary and ID following. Will also give a dose of Lasix today. Monitor Inflammatory markers. 04/19: Patient seen and examined still on high flow due to hypoxia. Appears a bit more comfortable today than yesterday. Cough has decreased in frequency. We will continue high dose Dexameathasone to complete 10 days. continue on Remdesivir 200 mg IV q day x 1 followed by 100 mg IV q day x 4 days -Obtain q48-72h inflammatory markers - ferritin, Ddimer, CRP, LDH Will also give lasix daily for the next 3 days and monitor renal function. Family updated. Continue prone positioning as tolerated 04/20: Patient has some desaturation episodes yesterday was placed on BiPAP. Discussed with ICU team for bed availability for patient to be transferred up. Continue prone position as tolerated. 04/21: Patient remains with profound hypoxia secondary to COVID pneumonia. -Continue steroids -Continue remedesir -S/P Actmera 04/22: Patient remains on steroids and remdesivir. ABG shows persistent hypoxia. We will continue current management additional trial of Lasix for the next few days to see if any improvement. Monitor inflammatory markers as needed. Prognosis is guarded remains on high flow 04/23; patient was treated with remdesivir and Actemra. Continue steroid. Patient's prognosis is guarded. 04/24; patient is on steroid. Patient is currently on BiPAP. Prognosis is guarded. Pulmonary is following. Patient was given Lasix and Ativan. 04/25; continue steroid. Patient was on 40 L of high flow oxygen with saturation was 88%. Pulmonary is following. Prognosis is guarded. Patient was given lasix and ativan. 04/26; patient is on BiPAP and Precedex. Prognosis is guarded. 04/27; patient is on BiPAP and Precedex. Patient will finish steroid today and will start on Solu-Medrol tomorrow. Prognosis is guarded. Blood pressure is better today. Hold Lasix. 04/28 patient is on 100 Fio2 via BIPAP. moderately dyspneic, pulmonary note reviewed, lab results reviewed 04/29 no acute events- see systems review above 04/30 no acute events overnight - on airvo today- TPN started -see systems review above 05-01 no acute events overnight- tolerating airvo- see systems review above 05-02 no acute events overnight; tolerating airvo this AM- see systems review above 05/03: Patient has shown remarkable improvement, weaned down to 3 L and satting 95%. Will attempt to walk test today in anticipation for discharge tomorrow. Discussed with PT team to walk the patient today also. 05/04: Patient appears to have had a decline he was down to 3 L satting 95% with anticipation for discharge today but desatted down to 85% on room air and only 88% on 5 L he is now back at 8 L. I encourage incentive spirometer. While he is on Xarelto and has completed the severe steroids which was subsequently changed to Solu-Medrol I will go ahead and order a CTA to make sure that there is not a failure of Xarelto. We will continue to wean as tolerated discussed with nursing staff at bedside. 05/05/21 Patient is on 40 L of oxygen with 80% FiO2. Patient is encouraged to turn to the side more frequently. Patient is denied any shortness of breath and coughing. No other complaints. Follow the CT scan of the chest. Status post remdesivir and Actemra.Solu-Medrol 40 mg IV every 8 hours. Continue current management. Pulmonary follow-up. 05/06: Patient remains on high flow nasal cannula but states that she feels sli ghtly better with the help of translation from her cousin Aspen. Patient is still awaiting a bed on the floor. Patient diet is being tolerated now so we will stop TPN will be stopped tonight. 05/07/2021: Patient remains on 40 L/min oxygen at 90% FiO2. Attempt made for CTA chest to rule out pulmonary embolism however patient desatted while at CT. Study was aborted, will reattempt again tomorrow. will follow along with pulphil bertrand. Discussed/updated patient and patient's daughter over phone regarding any active clinical issues. Patient only complaint is oral pain from oral candidiasis noted on exam. Nystatin oral solution ordered. Daughter also voiced concern over patient eye drops which she stated that patient needed to restart from home. However she did not remember name of drops. advised daughter to call our hospital with drop name and dosing and we will restart. 05/08/2021: Started anticoagulation with Lovenox yesterday. Awaiting CTA chest completion. Will attempt to de-escalate oxygen as patient tolerates 05/09/2021: Continues to have high O2 requirements. CTA chest aborted due to patient not being able to tolerate transport to and from scanner. Will follow pulmonology recommendations 05/10/2021: Steroids increased yesterday to 125 mg every 8 hour. Continuing full dose anticoagulation. Respiratory status still remains challenging as it is difficult to wean patient off of hifnc. Minimal improvement compared to last few days. Plan to prone patient today. Otherwise: Some improvement in eye symptoms compared to yesterday. Will order more lubricating eye drops 05/11/2021: Still requires high flow nasal cannula, FiO2 de-escalated to 85%.. Encourage continued proning, patient care team aware. Continue with steroids, anticoagulation, antibiotics. 05/12/2021: High flow nasal cannula remains at flow rate 35 L/min and FiO2 of 85%. Patient appears more comfortable today. Started insulin regimen due to hyperglycemia likely multifactorial in the setting of underlying diabetes and high-dose steroids. Continue to encourage patient to prone. Discussed with pu lmonology regarding patient underlying anxiety. We both agreed that low-dose BuSpar might be beneficial for the patient. 05/13/2020: hypoxic resp distress overnight. cpap ordered. Current settings on encounter 30/04 at 100% FIO2. Advised care (RN, RT, PT) team to continue to aggressively work with patient as far as proning. Patient can sit at side of bed and rest on bedside tray w/ pillow in "Rodin's thinker pose". continue high dose steroids, PRN ativan for anxiety, Buspar noted in pulm recs. 05/14/21: Patient remains on 100% O2 with high flow. Follow inflammatory markers, wean FiO2 as tolerated, guarded prognosis 05/15: Patient on 40 L high flow O2 today-requiring nonrebreather intermitt ently, continue to follow inflammatory markers and wean off O2 as tolerated, guarded prognosis. 05/16:-Remains on high flow O2 along with nonrebreather, continue to follow inflammatory markers and wean off O2 as tolerated, pulmonary and ID following. Guarded prognosis, patient requiring higher concentration of O2 and unable to wean off. 05/17: Persistently recurring higher concentration O2. Patient on both high flow oxygen and nonrebreather. Poor prognosis, continue to follow inflammatory markers. ID and pulmonary care following. Updated family. 05/18: Patient remains on nonrebreather and high flow O2, Prone if possible. Wean FiO2 for sats >88%. Prognosis is very very guarded. Follow inflammatory markers. 05/19: Wean FiO2 for sats >88%. Patient remains on nonrebreather and high flow O2, Prone if possible. Follow inflammatory markers. Prognosis is very very guarded. 05/20: Patient remains on high flow O2 along with nonrebreather. Guarded prognosis. Wean off O2 as tolerated. Pulmonary and ID following 05/20 patient remains on high flow O2 with nonrebreather. Was not able to tolerate weaning today. Prognosis remains poor. 05/23. Patient remains on high flow O2 with nasal cannula at this time. Did not try to wean patient at all today. Patient was talking on the phone with knitting demonstrator and myself in full sentences without hypoxemia. Complained of some neck stiffness and soreness from laying in bed too long. All questions and concerns answered to patient's satisfaction 05/24/2021. Patient was able to decrease from 30 L to 25 L today. Tolerated decrease without any difficulty. Patient feels well today. Better today. Tolerated physical therapy today. Spoke with family member through translation. Did not need much because of Turkish and language. 05/25/2021. No new changes patient tolerated decrease in high flow O2 from 30 to 25 L. Will decrease to 20 L today. Patient actively doing physical therapy today tolerated well. All questions and concerns answered through knitting demonstrator. 05/26/2021. Patient tolerated change from 30 high flow O2 to 25 L high flow O2. Will decrease to 20 today. Hospital course complicated by complaints of insomnia. 05/27/2021. No new concerns today. Patient tolerated decrease in O2 from 25-20. Continue to wean as tolerated. Insomnia better with Ambien. Patient was able to stop nonrebreather yesterday and now only on nasal cannula. 05/28/2021. No significant improvement over p.m. still able to wean to 25%. Did not tolerate 20% yesterday we'll attempt to wean again today. Steroids have been tapered. Encourage proning. Objective - Constitutional Vitals: Vital Signs - 12hr 05/27/21 05/27/21 05/27/21 22:00 22:40 23:12 Temperature 98.1 F Pulse Rate 87 Respiratory 18 Rate Blood Pressure 119/66 O2 Sat by Pulse 96 97 89 Oximetry 05/28/21 05/28/21 02:55 05:26 Temperature 97.8 F Pulse Rate 80 Respiratory 18 Rate Blood Pressure 120/65 O2 Sat by Pulse 94 93 Oximetry General appearance: Present: no acute distress, well-nourished - EENT Eyes: PERRL, EOM intact ENT: hearing intact, clear oral mucosa Ears: bilateral: normal - Neck Neck: supple, normal ROM - Respiratory Respiratory effort: normal Respiratory: bilateral: CTA, diminished, rhonchi - Breasts Breasts: normal - Cardiovascular Rhythm: regular Heart Sounds: Present: S1 & S2. Absent: gallop, rub Extremities: pulses intact, No edema, normal color, Full ROM - Gastrointestinal General gastrointestinal: Present: soft, non-tender, non-distended, normal bowel sounds - Genitourinary Female genitourinary: normal - Integumentary Integumentary: clear, warm, dry - Musculoskeletal Musculoskeletal: 1, strength equal bilaterally - Neurologic Neurologic: moves all extremities - Psychiatric Psychiatric: memory intact, appropriate mood/affect, intact judgment & insight - Labs CBC & Chem 7: 05/20/21 08:01 05/20/21 08:01 Labs: Abnormal lab results 05/27/21 05/27/21 05/27/21 Range/Units 11:46 15:58 21:02 POC Glucose 260 H 318 H 246 H (70-105) mg/dL 05/28/21 Range/Units 07:34 POC Glucose 185 H (70-105) mg/dL
[2021-05-28] MEDS: INSULIN GLARGINE 100 UNITS/ML SUB-Q SCH ×3 (08:51→22:55)
[2021-05-28] MEDS: DOCUSATE SODIUM 100 MG CAP PO SCH ×2 (11:05→23:05)
[2021-05-28] MEDS: CHOLECALCIFEROL (VIT D3) 1000 UNIT (25 mcg) TAB PO SCH (11:05)
[2021-05-28] MEDS: POLYETHYLENE GLYCOL 3350 17 GM POWDER PO SCH (11:05)
[2021-05-28] MEDS: FAMOTIDINE 20 MG TAB PO SCH ×2 (11:05→22:57)
[2021-05-28] MEDS: ZINC SULFATE 220 MG CAP PO SCH ×2 (11:05→22:56)
[2021-05-28] MEDS: ASCORBIC ACID 500 MG TAB PO SCH (11:06)
[2021-05-28] MEDS: ENOXAPARIN 40 MG/0.4 ML INJ SUB-Q SCH (22:56)
[2021-05-28] MEDS: ZOLPIDEM 5 MG TAB PO PRN (22:56)
[2021-05-28] MEDS: SENNOSIDES 8.6 MG TAB PO SCH (23:05)
[2021-05-29] MEDS: MOXIFLOXACIN 0.5% OPHTH SOLN 3ML OU SCH ×3 (06:00→23:09)
[2021-05-29] MEDS: MINERAL OIL/PETROLATUM, WHITE OPHTH OINT 3.5 GM OU SCH ×3 (06:00→23:09)
[2021-05-29] MEDS: methylPREDNISolone Sod Succinate 125 MG/2 ML INJ IV SCH ×3 (06:17→23:03)
[2021-05-29] MEDS: INSULIN LISPRO 100 UNIT/ML SUB-Q SCH ×4 (07:30→23:01)
--- NOTE | 2021-05-29 08:07 | Progress Note ---
Assessment and Plan -Acute hypoxic resp failure due to covid19 -S/p BiPAP, now discontinued tolerated decrease oxygen 20 L. Tolerated well now only on nasal cannula. -Currently on high per nasal cannula at flow rate 40 Discontinue nonrebreather. --Attempt to titrate more aggressively led to patient increasing high flow O2 back to 30%. -See RT notes for titration -Albuterol as needed -Pulmonary hygiene -Pulmonology following CTA chest ordered, patient could not tolerate --covid19 pna; sepsis; -zinc/vitC/D -methylpred 125 mg every 8; wean as appropriate -Infectious disease consulted, -S/p Actemra and remdesivir -Trend temperature and WBC curve -Follow culture data --Oral candidiasis Nystatin solution ordered. Resolving. -- hyponatremia -Last 24 hours -125 -Trend BMP-repeat BMP today. Does not need 1 every day -Replace electrolytes as needed Follow-up labs replace today. -Monitor intake and output -- coagulopathy of covid; on AC -Subcu heparin -Trend CBC-no need for transfusion. -Transfuse for hemoglobin less than 7 -Bilateral lower extremity Doppler ultrasounds negative for DVT ; no CTA or VQ scan to rule out PE -- hyperglycemia; [id number]-Tlhpt stable at this time. -glargine HS -SSI AC/HS -Avoid hypoglycemia -- risk for protein gisella malnutrition given inc metabolic demand with resp insufficiency -TPN earlier in hospital admission due to BiPAP however now patient is tolerating p.o. -Patient on a GI soft diet with aspiration precautions -Nutrition following -Bowel regimen: Colace, senna, MiraLAX -PPI --Anxiety Likely due to severe hypoxia Has shown some signs of improvement over the past 24 hours able to wean oxygen some. -Follows commands and RAY -PRN pain and anxiety meds -Patient is [place]-speaking but understands Croatian Added Ambien for insomnia. Anxiety resolving. add klonipin for anxiety --viral conjunctivitis right eye: Resolved would like drops for her eyes again. States eyes are dry. -Right eye- s/p 5 d course of cipro drops. suspect viral conjunctivitis. lubricating eye drops. supportive management. Erythema has resolved --Septic shock- resolved -S/p pressors now discontinued -MAP goal 65 -Pressure monitor per protocol Subjective Date of service: 05/29/21 Principal diagnosis: Covid-19 Interval history: Assessment and Plan 50-year-old female past medical history obesity, GERD, hyperlipidemia brought to the hospital due to shortness of breath, fevers, malaise, typical Covid symptoms for approximate 1 week prior to admission and was progressively worse since onse t. She is found to have saturations of 86% on presentation. Afebrile since admission with a white count 7.5. Covid test was positive positive along with normal renal function and normal procalcitonin. Chest x-ray: Bilateral pneumonia. Patient initiated on Covid protocol, ID and pulmonary care following 04/17: Patient seen and examined, still uncomfortable with Hypoxic respiratory failure and on oxygen, will continue to steroids therapy, start patient on Remdesivir, ID consulted, Pulmonary consult placed. 04/18: Patient seen and examined, she is currently being changed to High flow NC due to worsening HYPOXIA, will transfer to IMCU, Pulmonary and ID following. Will also give a dose of Lasix today. Monitor Inflammatory markers. 04/19: Patient seen and examined still on high flow due to hypoxia. Appears a bit more comfortable today than yesterday. Cough has decreased in frequency. We will continue high dose Dexameathasone to complete 10 days. continue on Remdesivir 200 mg IV q day x 1 followed by 100 mg IV q day x 4 days -Obtain q48-72h inflammatory markers - ferritin, Ddimer, CRP, LDH Will also give lasix daily for the next 3 days and monitor renal function. Family updated. Continue prone positioning as tolerated 04/20: Patient has some desaturation episodes yesterday was placed on BiPAP. Discussed with ICU team for bed availability for patient to be transferred up. Continue prone position as tolerated. 04/21: Patient remains with profound hypoxia secondary to COVID pneumonia. -Continue steroids -Continue remedesir -S/P Actmera 04/22: Patient remains on steroids and remdesivir. ABG shows persistent hypoxia. We will continue current management additional trial of Lasix for the next few days to see if any improvement. Monitor inflammatory markers as needed. Progn osis is guarded remains on high flow 04/23; patient was treated with remdesivir and Actemra. Continue steroid. Patient's prognosis is guarded. 04/24; patient is on steroid. Patient is currently on BiPAP. Prognosis is guarded. Pulmonary is following. Patient was given Lasix and Ativan. 04/25; continue steroid. Patient was on 40 L of high flow oxygen with saturation was 88%. Pulmonary is following. Prognosis is guarded. Patient was given lasix and ativan. 04/26; patient is on BiPAP and Precedex. Prognosis is guarded. 04/27; patient is on BiPAP and Precedex. Patient will finish steroid today and will start on Solu-Medrol tomorrow. Prognosis is guarded. Blood pressure is better today. Hold Lasix. 04/28 patient is on 100 Fio2 via BIPAP. moderately dyspneic, pulmonary note reviewed, lab results reviewed 04/29 no acute events- see systems review above 04/30 no acute events overnight - on airvo today- TPN started -see systems review above 05-01 no acute events overnight- tolerating airvo- see systems review above 05-02 no acute events overnight; tolerating airvo this AM- see systems review above 05/03: Patient has shown remarkable improvement, weaned down to 3 L and satting 95%. Will attempt to walk test today in anticipation for discharge tomorrow. Discussed with PT team to walk the patient today also. 05/04: Patient appears to have had a decline he was down to 3 L satting 95% with anticipation for discharge today but desatted down to 85% on room air and only 8 8% on 5 L he is now back at 8 L. I encourage incentive spirometer. While he is on Xarelto and has completed the severe steroids which was subsequently changed to Solu-Medrol I will go ahead and order a CTA to make sure that there is not a failure of Xarelto. We will continue to wean as tolerated discussed with nursing staff at bedside. 05/05/21 Patient is on 40 L of oxygen with 80% FiO2. Patient is encouraged to turn to the side more frequently. Patient is denied any shortness of breath and coughing. No other complaints. Follow the CT scan of the chest. Status post remdesivir and Actemra.Solu-Medrol 40 mg IV every 8 hours. Continue current management. Pulmonary follow-up. 05/06: Patient remains on high flow nasal cannula but states that she feels slightly better with the help of translation from her cousin Aspen. Patient is still awaiting a bed on the floor. Patient diet is being tolerated now so we will stop TPN will be stopped tonight. 05/07/2021: Patient remains on 40 L/min oxygen at 90% FiO2. Attempt made for CTA chest to rule out pulmonary embolism however patient desatted while at CT. Study was aborted, will reattempt again tomorrow. will follow along with pulphil bertrand. Discussed/updated patient and patient's daughter over phone regarding any active clinical issues. Patient only complaint is oral pain from oral candidiasis noted on exam. Nystatin oral solution ordered. Daughter also voiced concern over patient eye drops which she stated that patient needed to restart from home. However she did not remember name of drops. advised daughter to call our hospital with drop name and dosing and we will restart. 05/08/2021: Started anticoagulation with Lovenox yesterday. Awaiting CTA chest completion. Will attempt to de-escalate oxygen as patient tolerates 05/09/2021: Continues to have high O2 requirements. CTA chest aborted due to patient not being able to tolerate transport to and from scanner. Will follow pulmonology recommendations 05/10/2021: Steroids increased yesterday to 125 mg every 8 hour. Continuing full dose anticoagulation. Respiratory status still remains challenging as it is difficult to wean patient off of hifnc. Minimal improvement compared to last few days. Plan to prone patient today. Otherwise: Some improvement in eye symptoms compared to yesterday. Will order more lubricating eye drops 05/11/2021: Still requires high flow nasal cannula, FiO2 de-escalated to 85%.. Encourage continued proning, patient care team aware. Continue with steroids, anticoagulation, antibiotics. 05/12/2021: High flow nasal cannula remains at flow rate 35 L/min and FiO2 of 85%. Patient appears more comfortable today. Started insulin regimen due to hyperglycemia likely multifactorial in the setting of underlying diabetes and high-dose steroids. Continue to encourage patient to prone. Discussed with pulmonology regarding patient underlying anxiety. We both agreed that low-dose BuSpar might be beneficial for the patient. 05/13/2020: hypoxic resp distress overnight. cpap ordered. Current settings on encounter 30/04 at 100% FIO2. Advised care (RN, RT, PT) team to continue to aggressively work with patient as far as proning. Patient can sit at side of bed and rest on bedside tray w/ pillow in "Rodin's thinker pose". continue high dose steroids, PRN ativan for anxiety, Buspar noted in pulm recs. 05/14/21: Patient remains on 100% O2 with high flow. Follow inflammatory markers, wean FiO2 as tolerated, guarded prognosis 05/15: Patient on 40 L high flow O2 today-requiring nonrebreather intermittently, continue to follow inflammatory markers and wean off O2 as tolerated, guarded prognosis. 05/16:-Remains on high flow O2 along with nonrebreather, continue to follow inflammatory markers and wean off O2 as tolerated, pulmonary and ID following. Guarded prognosis, patient requiring higher concentration of O2 and unable to wean off. 05/17: Persistently recurring higher concentration O2. Patient on both high flow oxygen and nonrebreather. Poor prognosis, continue to follow inflammatory markers. ID and pulmonary care following. Updated family. 05/18: Patient remains on nonrebreather and high flow O2, Prone if possible. Wean FiO2 for sats >88%. Prognosis is very very guarded. Follow inflammatory markers. 05/19: Wean FiO2 for sats >88%. Patient remains on nonrebreather and high flow O2, Prone if possible. Follow inflammatory markers. Prognosis is very very guarded. 05/20: Patient remains on high flow O2 along with nonrebreather. Guarded prognosis. Wean off O2 as tolerated. Pulmonary and ID following 05/20 patient remains on high flow O2 with nonrebreather. Was not able to tolerate weaning today. Prognosis remains poor. 05/23. Patient remains on high flow O2 with nasal cannula at this time. Did not try to wean patient at all today. Patient was talking on the phone with dictating transcribing machine servicer and myself in full sentences without hypoxemia. Complained of some neck stiffness and soreness from laying in bed too long. All questions and concerns answered to patient's satisfaction 05/24/2021. Patient was able to decrease from 30 L to 25 L today. Tolerated decrease without any difficulty. Patient feels well today. Better today. Tolerated physical therapy today. Spoke with family member through translation. Did not need much because of E[place]an and language. 05/25/2021. No new changes patient tolerated decrease in high flow O2 from 30 to 25 L. Will decrease to 20 L today. Patient actively doing physical therapy today tolerated well. All questions and concerns answered through dictating transcribing machine servicer. 05/26/2021. Patient tolerated change from 30 high flow O2 to 25 L high flow O2. Will decrease to 20 today. Hospital course complicated by complaints of insomnia. 05/27/2021. No new concerns today. Patient tolerated decrease in O2 from 25-20. Continue to wean as tolerated. Insomnia better with Ambien. Patient was able to stop nonrebreather yesterday and now only on nasal cannula. 05/28/2021. No significant improvement over p.m. still able to wean to 25%. Did not tolerate 20% yesterday we'll attempt to wean again today. Steroids have been tapered. Encourage proning. 05/29/2021. Encourage proning again in E[place]rean. Patient up to 35% high flow O2 nasal cannula. Did not tolerate wean over p.m. Overall prognosis remains guarded. Objective - Constitutional Vitals: Vital Signs - 12hr 05/28/21 05/28/21 05/28/21 20:40 22:00 23:05 Temperature 97.8 F Pulse Rate 96 H Respiratory 18 Rate Blood Pressure 115/58 O2 Sat by Pulse 92 92 92 Oximetry 05/29/21 05/29/21 03:57 05:10 Temperature 98.2 F Pulse Rate 78 Respiratory 18 Rate Blood Pressure 106/64 O2 Sat by Pulse 97 95 Oximetry General appearance: Present: no acute distress, well-nourished - EENT Eyes: PERRL, EOM intact ENT: hearing intact, clear oral mucosa, other (Oxygen via nasal cannula high flow O2. 35%) Ears: bilateral: normal - Neck Neck: supple, normal ROM - Respiratory Respiratory effort: normal Respiratory: bilateral: diminished, rhonchi - Breasts Breasts: normal - Cardiovascular Rhythm: regular Heart Sounds: Present: S1 & S2. Absent: gallop, rub Extremities: pulses intact, No edema, normal color, Full ROM - Gastrointestinal General gastrointestinal: Present: soft, non-tender, non-distended, normal bowel sounds - Genitourinary Female genitourinary: normal - Integumentary Integumentary: clear, warm, dry - Musculoskeletal Musculoskeletal: strength equal bilaterally, generalized weakness, other (Debility secondary to prolonged hospital stay. Atrophy bilateral lower e xtremities.) - Neurologic Neurologic: moves all extremities - Psychiatric Psychiatric: memory intact, appropriate mood/affect, intact judgment & insight - Labs CBC & Chem 7: 05/20/21 08:01 05/20/21 08:01 Labs: Abnormal lab results 05/28/21 05/28/21 05/28/21 Range/Units 11:31 16:36 21:19 POC Glucose 297 H 183 H 274 H (70-105) mg/dL 05/29/21 Range/Units 07:34 POC Glucose 139 H (70-105) mg/dL
[2021-05-29] MEDS: FAMOTIDINE 20 MG TAB PO SCH ×2 (10:32→23:00)
[2021-05-29] MEDS: POLYETHYLENE GLYCOL 3350 17 GM POWDER PO SCH (10:33)
[2021-05-29] MEDS: CHOLECALCIFEROL (VIT D3) 1000 UNIT (25 mcg) TAB PO SCH (10:33)
[2021-05-29] MEDS: ASCORBIC ACID 500 MG TAB PO SCH (10:33)
[2021-05-29] MEDS: DOCUSATE SODIUM 100 MG CAP PO SCH ×2 (10:33→23:00)
[2021-05-29] MEDS: ZINC SULFATE 220 MG CAP PO SCH ×2 (10:37→23:00)
[2021-05-29] MEDS: INSULIN GLARGINE 100 UNITS/ML SUB-Q SCH ×2 (10:37→23:00)
--- NOTE | 2021-05-29 12:31 | Progress Note ---
Assessment and Plan 50 y/o female with acute respiratory failure secondary to COVID19 pneumonia. 05/29/21: No acute changes clinically. Still on HFNC but not really able to wean. Continue to encourage proning. Will drop steroids further on Thursday. 05/27/21: No improvement over the weekend but also no worsening. No other strategies to offer. Please continue to encourage patient to prone. I dropped steroids on yesterday. Will wean more later in the week. 05/24/21: No new recs again for today. Will see as needed over the weekend but follow chart peripherally for changes. 05/22/21: No new recs for today. Prognosis remains guarded. 05/21/21: Wean as tolerated. Prone if able. Guarded prognosis 05/20/21: COntinue current level of care. 05/17/21: Prone if possible. Wean FiO2 for sats >88%. Continue scheduled ativan. Prognosis is very very guarded. Unfunded so not a candidate for LTACH 05/16/21: Prone if willing. Wean FIO2 if patient will allow. Anxiety control. Prognosis still remains very guarded. 05/15/21: Not sure if MAR is accurate but may have only gotten one dose of scheduled anixolytic therapy. Continue proning as tolerated, and wean FiO2 and flow for sats >88%. Prognosi remains very very guarded to poor. 05/14/21: Will discontinue the buspar and make the ativan scheduled but will do q6 as oppose to q4 and attempt to leave parameters for nursing when not to give. If anxiety could be controlled, feel that patient could be weaned further. She has no funding so she is not a candidate for LTACH. Prone if possible. Guarded prognosis. This is her day. 05/13/21: Ordered buspar 10 BID to start with to help with anxiety. Please continue to wean FiO2 as tolerated. Will remind nurse that there is PRN ativan available. Continue higher doses of steroids. Prone if able. 05/12/21: Patient may need something longer acting for anxiety. Per chart has not gotten any ativan in days. Would be ok with either buspar or low dose klonopin bid. COntinue higher doses of steroids as patient seems to be respondi ng. Prone if possible. 05/11/21: Continue high doses of steroids and continue to wean for sats >88%. Please encourage proning. 05/10/21: Will continue this dose of steroid at least through the weekend and assess for improvement. will speak with RT about aggressive weaning. Full dose anticoagulation continues. Very very guarded to poor prognosis. 05/09/21: Going to consider increasing steroids to 125q8, maybe as early as tomorrow. continue full dose anticoagulation. 05/08/21: Continue anticoagulation and steroids. Prone if possible. Anxiety control. No objection to CTA if this can happen. Very very guarded prognosis. 05/07/21: Spoke with IMS, not opposed to full dose anticoagulation. If patient goes back on NRB HFNC combo may need to consider restarting PPN again. Encourage proning. Guarded prognosis. 05/06/21: Continue to wean FiO2 and flow for sats >88%. Tolerating diet now so will stop PPN. Continue anxiety control. Continue IV steroids. Would not object to transfer to COVID floor if bed available. Not sure why she was titrated back up to 100% from 85 as all sats documented in the RT's notes were acceptable. Same for under vital signs as well. 05/03/21: Set back last night from yesterday. Continue bipap therapy for now and attempt HFNC maybe later this afternoon. Continue to use PRN ativan but may need to schedule as she likely took off mask from anxiety. Continue IV steroids. Hold on transfer to COVID Floor. 05/02/21: Continue to wean FiO2 as tolerated for sats >88%. Will continue bipap at night. Patient has no funding so not a candidate for LTACH. Given that she has been stable and not requiring the combo of HFNC and NRB, will consider moving to COVID floor. 05/01/21: Continue to wean FiO2 for sats >88%. A sat of 90 is more than acceptable and oxygen should not be increased for this unless patient desats and remains at a sat lower than 88. Bipap at night to give some form of relief and HFNC during the day. Currently on just this alone which is improvement. Ok with daily diuresis but must monitor renal function and BP closely. She was over diuresed last week and we ended up giving fluid back. Prognosis remains guarded. 04/30/21: Will start CLinimix today for nutritional support, without electrolytes. Check labs in am. Prone if able. Continue precedx for anxiety. Very very guarded prognosis. Attempting our best to not intubate. 04/29/21: Continue precedex. Continue IV solumedrol. Prone if able. Guarded prognosis. 04/28/21: Continue Precedex. Picc team attempting to place line now. Stable on Bipap. Ordered steroids IV solumedrol to start today. Prognosis remains guarded, still at very high risk for intubation. 04/27/21: Hypotension improving/improved. Hold on any further lasix dosing. Continue precedex to help with anxeity. later today please attempt HFNC with NRB if needed. Attempt to feed if possible. Steroids end today, please order solumedrol 40q8 to start tomorrow (04/28/21). guarded prognosis. 04/26/21: Hypotension today, most likely from precedex use and diuresis that I did the last several days. Will bolus again today. Consider midodrine if BP does not respond. 04/25/21: Lasix again today. Keep PRN ativan for now. Hold on precedex for now. Guarded prognosis. Labs ordered for tomorrow. 04/24/21: Lasix today. Will also start patient on low dose PRN ativan. If this does not help will then try precedex. Guarded prognosis. 04/23/21: Prone as tolerated. No lasix today. Continue decadron. Guarded prognosis. High risk for intubation and high mortality with intubation. 04/19/21: Prone as tolerated during the day and sleep prone at night. Continue IV remdesivir and steroids. Did get actemra. Guarded prognosis. 1. Daily net negative state 2. Prone if possible 3. IV remdesivir. 4. Should be a candidate for Actemra 5. IV steroids 6. Guarded Prognosis Subjective Date of service: 05/29/21 Principal diagnosis: Covid-19 Interval history: No acute changes clinically. Objective Vital Signs - 12hr 05/29/21 05/29/21 05/29/21 03:57 05:10 09:52 Temperature 98.2 F Pulse Rate 78 Respiratory 18 Rate Blood Pressure 106/64 O2 Sat by Pulse 97 95 94 Oximetry Constitutional: no acute distress, alert Eyes: non-icteric ENT: oropharynx moist Neck: supple Effort: normal Ascultation: Bilateral: diminished breath sounds Cardiovascular: regular rate and rhythm Gastrointestinal: normoactive bowel sounds, soft, non-tender, non-distended Integumentary: normal Extremities: no cyanosis, no edema, pink and warm Neurologic: normal mental status, non-focal exam, pupils equal and round, CN II- XII normal Psychiatric: mood appropriate, affect normal CBC and BMP: 05/20/21 08:01 05/20/21 08:01 ABG, PT/INR, D-dimer: ABG ABG pH 7.403 pH Units (7.350-7.450) 05/14/21 02:23 POC ABG pCO2 45.4 mmHg (32.0-48.0) 05/03/21 04:49 ABG pCO2 50.2 mm Hg 05/14/21 02:23 POC ABG pO2 65.3 mmHg (83-108) L 05/03/21 04:49 ABG pO2 130.3 mm Hg (80.0-90.0) H 05/14/21 02:23 POC ABG HCO3 18.5 05/03/21 04:49 ABG O2 Saturation 98.5 % (95.0-99.0) 05/14/21 02:23 PT/INR, D-dimer D-Dimer 910.38 ng/mlDDU (0-234) H 05/23/21 09:50 Abnormal lab findings: Abnormal Labs 04/16/21 04/16/21 04/16/21 11:42 11:42 11:42 WBC MCHC RDW 16.1 H Lymph % (Auto) 7.8 L Lymph # (Auto) 0.8 L Baso # (Auto) Seg Neutrophils % 87.7 H Seg Neuts % (Manual) Lymphocytes % (Manual) Seg Neutrophils # 8.5 H Seg Neutrophils # Man Lymphocytes # (Manual) D-Dimer 338.70 H ABG pH POC ABG pO2 ABG pO2 ABG HCO3 ABG O2 Saturation ABG Base Excess ABG Oxyhemoglobin ABG Sodium ABG Chloride ABG Glucose Oxyhemoglobin Carboxyhemoglobin Sodium Potassium Chloride Carbon Dioxide BUN Creatinine Glucose 194 H POC Glucose Hemoglobin A1c Ferritin AST ALT Alkaline Phosphatase Lactate Dehydrogenase C-Reactive Protein Total Protein 8.4 H Albumin 3.8 L Arterial Blood Glucose Coronavirus (PCR) 08/03/21 08/03/21 08/04/21 11:42 11:42 03:50 WBC MCHC RDW 16.0 H Lymph % (Auto) 7.7 L Lymph # (Auto) 0.6 L Baso # (Auto) Seg Neutrophils % 89.8 H Seg Neuts % (Manual) Lymphocytes % (Manual) Seg Neutrophils # Seg Neutrophils # Man Lymphocytes # (Manual) D-Dimer ABG pH POC ABG pO2 ABG pO2 ABG HCO3 ABG O2 Saturation ABG Base Excess ABG Oxyhemoglobin ABG Sodium ABG Chloride ABG Glucose Oxyhemoglobin Carboxyhemoglobin Sodium Potassium Chloride Carbon Dioxide BUN Creatinine Glucose 195 H POC Glucose Hemoglobin A1c Ferritin 254.3 H AST ALT Alkaline Phosphatase Lactate Dehydrogenase 359 H C-Reactive Protein 15.20 H Total Protein Albumin Arterial Blood Glucose Coronavirus (PCR) 04/17/21 04/17/21 04/17/21 03:50 08:26 08:26 WBC MCHC RDW Lymph % (Auto) Lymph # (Auto) Baso # (Auto) Seg Neutrophils % Seg Neuts % (Manual) Lymphocytes % (Manual) Seg Neutrophils # Seg Neutrophils # Man Lymphocytes # (Manual) D-Dimer 262.48 H ABG pH POC ABG pO2 ABG pO2 ABG HCO3 ABG O2 Saturation ABG Base Excess ABG Oxyhemoglobin ABG Sodium ABG Chloride ABG Glucose Oxyhemoglobin Carboxyhemoglobin Sodium Potassium Chloride Carbon Dioxide BUN 20 H Creatinine 0.5 L Glucose 249 H 225 H POC Glucose Hemoglobin A1c Ferritin AST ALT Alkaline Phosphatase Lactate Dehydrogenase 338 H C-Reactive Protein 17.20 H Total Protein Albumin 3.2 L Arterial Blood Glucose Coronavirus (PCR) 04/17/21 04/17/21 04/17/21 08:26 15:04 Unknown WBC MCHC RDW Lymph % (Auto) Lymph # (Auto) Baso # (Auto) Seg Neutrophils % Seg Neuts % (Manual) Lymphocytes % (Manual) Seg Neutrophils # Seg Neutrophils # Man Lymphocytes # (Manual) D-Dimer ABG pH POC ABG pO2 ABG pO2 ABG HCO3 ABG O2 Saturation ABG Base Excess ABG Oxyhemoglobin ABG Sodium ABG Chloride ABG Glucose Oxyhemoglobin Carboxyhemoglobin Sodium Potassium Chloride Carbon Dioxide BUN 20 H Creatinine 0.5 L Glucose 246 H POC Glucose Hemoglobin A1c Ferritin 392.0 H AST ALT Alkaline Phosphatase Lactate Dehydrogenase C-Reactive Protein Total Protein 8.3 H Albumin 3.1 L Arterial Blood Glucose Coronavirus (PCR) Positive A 04/18/21 04/18/21 04/18/21 05:06 05:06 07:36 WBC 11.6 H MCHC RDW 16.1 H Lymph % (Auto) Lymph # (Auto) Baso # (Auto) Seg Neutrophils % Seg Neuts % (Manual) Lymphocytes % (Manual) Seg Neutrophils # Seg Neutrophils # Man Lymphocytes # (Manual) D-Dimer ABG pH POC ABG pO2 ABG pO2 ABG HCO3 ABG O2 Saturation ABG Base Excess ABG Oxyhemoglobin ABG Sodium ABG Chloride ABG Glucose Oxyhemoglobin Carboxyhemoglobin Sodium Potassium 5.2 H Chloride Carbon Dioxide BUN 22 H Creatinine 0.5 L Glucose 315 H POC Glucose Hemoglobin A1c 8.5 H Ferritin AST ALT Alkaline Phosphatase Lactate Dehydrogenase C-Reactive Protein Total Protein Albumin 3.3 L Arterial Blood Glucose Coronavirus (PCR) 04/18/21 04/18/21 04/18/21 11:59 16:43 23:24 WBC MCHC RDW Lymph % (Auto) Lymph # (Auto) Baso # (Auto) Seg Neutrophils % Seg Neuts % (Manual) Lymphocytes % (Manual) Seg Neutrophils # Seg Neutrophils # Man Lymphocytes # (Manual) D-Dimer ABG pH POC ABG pO2 ABG pO2 ABG HCO3 ABG O2 Saturation ABG Base Excess ABG Oxyhemoglobin ABG Sodium ABG Chloride ABG Glucose Oxyhemoglobin Carboxyhemoglobin Sodium Potassium Chloride Carbon Dioxide BUN Creatinine Glucose POC Glucose 284 H 273 H 290 H Hemoglobin A1c Ferritin AST ALT Alkaline Phosphatase Lactate Dehydrogenase C-Reactive Protein Total Protein Albumin Arterial Blood Glucose Coronavirus (PCR) 04/19/21 04/19/21 04/19/21 04:19 04:19 08:10 WBC MCHC RDW 15.7 H Lymph % (Auto) Lymph # (Auto) Baso # (Auto) Seg Neutrophils % Seg Neuts % (Manual) Lymphocytes % (Manual) Seg Neutrophils # Seg Neutrophils # Man Lymphocytes # (Manual) D-Dimer ABG pH POC ABG pO2 ABG pO2 ABG HCO3 ABG O2 Saturation ABG Base Excess ABG Oxyhemoglobin ABG Sodium ABG Chloride ABG Glucose Oxyhemoglobin Carboxyhemoglobin Sodium Potassium Chloride Carbon Dioxide BUN 27 H Creatinine 0.4 L Glucose 184 H POC Glucose 194 H Hemoglobin A1c Ferritin AST ALT Alkaline Phosphatase Lactate Dehydrogenase C-Reactive Protein Total Protein Albumin 3.1 L Arterial Blood Glucose Coronavirus (PCR) 04/19/21 04/19/21 04/19/21 11:38 16:25 22:04 WBC MCHC RDW Lymph % (Auto) Lymph # (Auto) Baso # (Auto) Seg Neutrophils % Seg Neuts % (Manual) Lymphocytes % (Manual) Seg Neutrophils # Seg Neutrophils # Man Lymphocytes # (Manual) D-Dimer ABG pH POC ABG pO2 ABG pO2 ABG HCO3 ABG O2 Saturation ABG Base Excess ABG Oxyhemoglobin ABG Sodium ABG Chloride ABG Glucose Oxyhemoglobin Carboxyhemoglobin Sodium Potassium Chloride Carbon Dioxide BUN Creatinine Glucose POC Glucose 224 H 297 H 251 H Hemoglobin A1c Ferritin AST ALT Alkaline Phosphatase Lactate Dehydrogenase C-Reactive Protein Total Protein Albumin Arterial Blood Glucose Coronavirus (PCR) 04/20/21 04/20/21 04/20/21 05:28 08:43 16:21 WBC MCHC RDW Lymph % (Auto) Lymph # (Auto) Baso # (Auto) Seg Neutrophils % Seg Neuts % (Manual) Lymphocytes % (Manual) Seg Neutrophils # Seg Neutrophils # Man Lymphocytes # (Manual) D-Dimer ABG pH POC ABG pO2 ABG pO2 ABG HCO3 ABG O2 Saturation ABG Base Excess ABG Oxyhemoglobin ABG Sodium ABG Chloride ABG Glucose Oxyhemoglobin Carboxyhemoglobin Sodium Potassium Chloride Carbon Dioxide BUN 27 H Creatinine Glucose 192 H POC Glucose 173 H 253 H Hemoglobin A1c Ferritin AST ALT Alkaline Phosphatase Lactate Dehydrogenase C-Reactive Protein Total Protein Albumin 3.0 L Arterial Blood Glucose Coronavirus (PCR) 04/21/21 04/21/21 04/21/21 07:58 12:05 16:08 WBC MCHC RDW Lymph % (Auto) Lymph # (Auto) Baso # (Auto) Seg Neutrophils % Seg Neuts % (Manual) Lymphocytes % (Manual) Seg Neutrophils # Seg Neutrophils # Man Lymphocytes # (Manual) D-Dimer ABG pH POC ABG pO2 ABG pO2 ABG HCO3 ABG O2 Saturation ABG Base Excess ABG Oxyhemoglobin ABG Sodium ABG Chloride ABG Glucose Oxyhemoglobin Carboxyhemoglobin Sodium Potassium Chloride Carbon Dioxide BUN Creatinine Glucose POC Glucose 140 H 252 H 214 H Hemoglobin A1c Ferritin AST ALT Alkaline Phosphatase Lactate Dehydrogenase C-Reactive Protein Total Protein Albumin Arterial Blood Glucose Coronavirus (PCR) 04/21/21 04/22/21 04/22/21 21:42 08:37 12:01 WBC MCHC RDW Lymph % (Auto) Lymph # (Auto) Baso # (Auto) Seg Neutrophils % Seg Neuts % (Manual) Lymphocytes % (Manual) Seg Neutrophils # Seg Neutrophils # Man Lymphocytes # (Manual) D-Dimer ABG pH 7.457 H POC ABG pO2 49.4 L ABG pO2 ABG HCO3 ABG O2 Saturation ABG Base Excess ABG Oxyhemoglobin 85.6 L ABG Sodium ABG Chloride ABG Glucose 121 H Oxyhemoglobin Carboxyhemoglobin 0.3 L Sodium Potassium Chloride Carbon Dioxide BUN Creatinine Glucose POC Glucose 162 H 227 H Hemoglobin A1c Ferritin AST ALT Alkaline Phosphatase Lactate Dehydrogenase C-Reactive Protein Total Protein Albumin Arterial Blood Glucose 121 H Coronavirus (PCR) 04/22/21 04/22/21 04/23/21 16:26 22:23 04:52 WBC MCHC RDW 15.7 H Lymph % (Auto) Lymph # (Auto) Baso # (Auto) Seg Neutrophils % Seg Neuts % (Manual) Lymphocytes % (Manual) Seg Neutrophils # Seg Neutrophils # Man Lymphocytes # (Manual) D-Dimer ABG pH POC ABG pO2 ABG pO2 ABG HCO3 ABG O2 Saturation ABG Base Excess ABG Oxyhemoglobin ABG Sodium ABG Chloride ABG Glucose Oxyhemoglobin Carboxyhemoglobin Sodium Potassium Chloride Carbon Dioxide BUN Creatinine Glucose POC Glucose 200 H 136 H Hemoglobin A1c Ferritin AST ALT Alkaline Phosphatase Lactate Dehydrogenase C-Reactive Protein Total Protein Albumin Arterial Blood Glucose Coronavirus (PCR) 04/23/21 04/23/21 04/23/21 04:52 12:06 17:41 WBC MCHC RDW Lymph % (Auto) Lymph # (Auto) Baso # (Auto) Seg Neutrophils % Seg Neuts % (Manual) Lymphocytes % (Manual) Seg Neutrophils # Seg Neutrophils # Man Lymphocytes # (Manual) D-Dimer ABG pH POC ABG pO2 ABG pO2 ABG HCO3 ABG O2 Saturation ABG Base Excess ABG Oxyhemoglobin ABG Sodium ABG Chloride ABG Glucose Oxyhemoglobin Carboxyhemoglobin Sodium 136 L Potassium Chloride 97.7 L Carbon Dioxide BUN 23 H Creatinine Glucose 101 H POC Glucose 202 H 169 H Hemoglobin A1c Ferritin AST 46 H ALT Alkaline Phosphatase Lactate Dehydrogenase C-Reactive Protein Total Protein Albumin 3.3 L Arterial Blood Glucose Coronavirus (PCR) 04/23/21 04/24/21 04/24/21 23:08 05:17 08:38 WBC MCHC RDW Lymph % (Auto) Lymph # (Auto) Baso # (Auto) Seg Neutrophils % Seg Neuts % (Manual) Lymphocytes % (Manual) Seg Neutrophils # Seg Neutrophils # Man Lymphocytes # (Manual) D-Dimer ABG pH POC ABG pO2 ABG pO2 ABG HCO3 ABG O2 Saturation ABG Base Excess ABG Oxyhemoglobin ABG Sodium ABG Chloride ABG Glucose Oxyhemoglobin Carboxyhemoglobin Sodium Potassium Chloride Carbon Dioxide BUN Creatinine Glucose POC Glucose 111 H 108 H 126 H Hemoglobin A1c Ferritin AST ALT Alkaline Phosphatase Lactate Dehydrogenase C-Reactive Protein Total Protein Albumin Arterial Blood Glucose Coronavirus (PCR) 04/24/21 04/24/21 04/24/21 11:54 17:57 21:23 WBC MCHC RDW Lymph % (Auto) Lymph # (Auto) Baso # (Auto) Seg Neutrophils % Seg Neuts % (Manual) Lymphocytes % (Manual) Seg Neutrophils # Seg Neutrophils # Man Lymphocytes # (Manual) D-Dimer ABG pH POC ABG pO2 ABG pO2 ABG HCO3 ABG O2 Saturation ABG Base Excess ABG Oxyhemoglobin ABG Sodium ABG Chloride ABG Glucose Oxyhemoglobin Carboxyhemoglobin Sodium Potassium Chloride Carbon Dioxide BUN Creatinine Glucose POC Glucose 147 H 177 H 138 H Hemoglobin A1c Ferritin AST ALT Alkaline Phosphatase Lactate Dehydrogenase C-Reactive Protein Total Protein Albumin Arterial Blood Glucose Coronavirus (PCR) 04/25/21 04/25/21 04/25/21 07:06 11:23 15:43 WBC MCHC RDW Lymph % (Auto) Lymph # (Auto) Baso # (Auto) Seg Neutrophils % Seg Neuts % (Manual) Lymphocytes % (Manual) Seg Neutrophils # Seg Neutrophils # Man Lymphocytes # (Manual) D-Dimer ABG pH POC ABG pO2 ABG pO2 ABG HCO3 ABG O2 Saturation ABG Base Excess ABG Oxyhemoglobin ABG Sodium ABG Chloride ABG Glucose Oxyhemoglobin Carboxyhemoglobin Sodium Potassium Chloride Carbon Dioxide BUN Creatinine Glucose POC Glucose 147 H 169 H 227 H Hemoglobin A1c Ferritin AST ALT Alkaline Phosphatase Lactate Dehydrogenase C-Reactive Protein Total Protein Albumin Arterial Blood Glucose Coronavirus (PCR) 04/25/21 04/26/21 04/26/21 21:22 02:45 05:15 WBC MCHC RDW Lymph % (Auto) Lymph # (Auto) Baso # (Auto) Seg Neutrophils % Seg Neuts % (Manual) Lymphocytes % (Manual) Seg Neutrophils # Seg Neutrophils # Man Lymphocytes # (Manual) D-Dimer ABG pH POC ABG pO2 70.7 L ABG pO2 ABG HCO3 ABG O2 Saturation ABG Base Excess ABG Oxyhemoglobin 93.0 L ABG Sodium 132.7 L ABG Chloride ABG Glucose 115 H Oxyhemoglobin Carboxyhemoglobin Sodium Potassium Chloride 95.8 L Carbon Dioxide 32 H BUN 20 H Creatinine Glucose 102 H POC Glucose 196 H Hemoglobin A1c Ferritin AST ALT Alkaline Phosphatase Lactate Dehydrogenase C-Reactive Protein Total Protein Albumin Arterial Blood Glucose 115 H Coronavirus (PCR) 04/26/21 04/26/21 04/26/21 11:49 16:09 21:07 WBC MCHC RDW Lymph % (Auto) Lymph # (Auto) Baso # (Auto) Seg Neutrophils % Seg Neuts % (Manual) Lymphocytes % (Manual) Seg Neutrophils # Seg Neutrophils # Man Lymphocytes # (Manual) D-Dimer ABG pH POC ABG pO2 ABG pO2 ABG HCO3 ABG O2 Saturation ABG Base Excess ABG Oxyhemoglobin ABG Sodium ABG Chloride ABG Glucose Oxyhemoglobin Carboxyhemoglobin Sodium Potassium Chloride Carbon Dioxide BUN Creatinine Glucose POC Glucose 114 H 188 H 136 H Hemoglobin A1c Ferritin AST ALT Alkaline Phosphatase Lactate Dehydrogenase C-Reactive Protein Total Protein Albumin Arterial Blood Glucose Coronavirus (PCR) 04/27/21 04/27/21 04/28/21 17:34 22:12 08:26 WBC MCHC RDW Lymph % (Auto) Lymph # (Auto) Baso # (Auto) Seg Neutrophils % Seg Neuts % (Manual) Lymphocytes % (Manual) Seg Neutrophils # Seg Neutrophils # Man Lymphocytes # (Manual) D-Dimer ABG pH POC ABG pO2 ABG pO2 ABG HCO3 ABG O2 Saturation ABG Base Excess ABG Oxyhemoglobin ABG Sodium ABG Chloride ABG Glucose Oxyhemoglobin Carboxyhemoglobin Sodium Potassium Chloride Carbon Dioxide BUN Creatinine Glucose POC Glucose 128 H 159 H 69 L Hemoglobin A1c Ferritin AST ALT Alkaline Phosphatase Lactate Dehydrogenase C-Reactive Protein Total Protein Albumin Arterial Blood Glucose Coronavirus (PCR) 04/28/21 04/28/21 04/29/21 12:22 21:11 06:05 WBC MCHC RDW Lymph % (Auto) Lymph # (Auto) Baso # (Auto) Seg Neutrophils % Seg Neuts % (Manual) Lymphocytes % (Manual) Seg Neutrophils # Seg Neutrophils # Man Lymphocytes # (Manual) D-Dimer ABG pH POC ABG pO2 ABG pO2 ABG HCO3 ABG O2 Saturation ABG Base Excess ABG Oxyhemoglobin ABG Sodium ABG Chloride ABG Glucose Oxyhemoglobin Carboxyhemoglobin Sodium 132 L Potassium Chloride 94.4 L Carbon Dioxide BUN Creatinine 0.2 L D Glucose 140 H POC Glucose 141 H 171 H Hemoglobin A1c Ferritin AST ALT Alkaline Phosphatase Lactate Dehydrogenase C-Reactive Protein Total Protein Albumin Arterial Blood Glucose Coronavirus (PCR) 04/29/21 04/29/21 04/29/21 06:05 07:24 11:36 WBC MCHC 35 H RDW 15.9 H Lymph % (Auto) Lymph # (Auto) Baso # (Auto) Seg Neutrophils % Seg Neuts % (Manual) Lymphocytes % (Manual) Seg Neutrophils # Seg Neutrophils # Man Lymphocytes # (Manual) D-Dimer ABG pH POC ABG pO2 ABG pO2 ABG HCO3 ABG O2 Saturation ABG Base Excess ABG Oxyhemoglobin ABG Sodium ABG Chloride ABG Glucose Oxyhemoglobin Carboxyhemoglobin Sodium Potassium Chloride Carbon Dioxide BUN Creatinine Glucose POC Glucose 141 H 220 H Hemoglobin A1c Ferritin AST ALT Alkaline Phosphatase Lactate Dehydrogenase C-Reactive Protein Total Protein Albumin Arterial Blood Glucose Coronavirus (PCR) 04/29/21 04/29/21 04/29/21 14:23 15:30 17:06 WBC MCHC RDW Lymph % (Auto) Lymph # (Auto) Baso # (Auto) Seg Neutrophils % Seg Neuts % (Manual) Lymphocytes % (Manual) Seg Neutrophils # Seg Neutrophils # Man Lymphocytes # (Manual) D-Dimer ABG pH POC ABG pO2 ABG pO2 52.6 L ABG HCO3 ABG O2 Saturation 86.4 L ABG Base Excess ABG Oxyhemoglobin ABG Sodium ABG Chloride ABG Glucose Oxyhemoglobin 84.6 L Carboxyhemoglobin Sodium Potassium Chloride Carbon Dioxide BUN Creatinine Glucose POC Glucose 173 H 158 H Hemoglobin A1c Ferritin AST ALT Alkaline Phosphatase Lactate Dehydrogenase C-Reactive Protein Total Protein Albumin Arterial Blood Glucose Coronavirus (PCR) 04/29/21 04/30/21 04/30/21 21:27 07:16 08:00 WBC MCHC RDW 16.1 H Lymph % (Auto) Lymph # (Auto) Baso # (Auto) Seg Neutrophils % Seg Neuts % (Manual) Lymphocytes % (Manual) Seg Neutrophils # Seg Neutrophils # Man Lymphocytes # (Manual) D-Dimer ABG pH POC ABG pO2 ABG pO2 ABG HCO3 ABG O2 Saturation ABG Base Excess ABG Oxyhemoglobin ABG Sodium ABG Chloride ABG Glucose Oxyhemoglobin Carboxyhemoglobin Sodium Potassium Chloride Carbon Dioxide BUN Creatinine Glucose POC Glucose 244 H 175 H Hemoglobin A1c Ferritin AST ALT Alkaline Phosphatase Lactate Dehydrogenase C-Reactive Protein Total Protein Albumin Arterial Blood Glucose Coronavirus (PCR) 04/30/21 04/30/21 04/30/21 08:00 08:00 11:03 WBC MCHC RDW Lymph % (Auto) Lymph # (Auto) Baso # (Auto) Seg Neutrophils % Seg Neuts % (Manual) Lymphocytes % (Manual) Seg Neutrophils # Seg Neutrophils # Man Lymphocytes # (Manual) D-Dimer 1796.87 H ABG pH POC ABG pO2 ABG pO2 ABG HCO3 ABG O2 Saturation ABG Base Excess ABG Oxyhemoglobin ABG Sodium ABG Chloride ABG Glucose Oxyhemoglobin Carboxyhemoglobin Sodium 135 L Potassium Chloride 96.3 L Carbon Dioxide BUN Creatinine 0.2 L Glucose 153 H POC Glucose 183 H Hemoglobin A1c Ferritin AST 41 H ALT 76 H Alkaline Phosphatase 160 H Lactate Dehydrogenase 522 H C-Reactive Protein Total Protein 6.1 L Albumin 3.1 L Arterial Blood Glucose Coronavirus (PCR) 04/30/21 04/30/21 05/01/21 17:04 22:17 05:39 WBC MCHC RDW Lymph % (Auto) Lymph # (Auto) Baso # (Auto) Seg Neutrophils % Seg Neuts % (Manual) Lymphocytes % (Manual) Seg Neutrophils # Seg Neutrophils # Man Lymphocytes # (Manual) D-Dimer ABG pH POC ABG pO2 ABG pO2 ABG HCO3 ABG O2 Saturation ABG Base Excess ABG Oxyhemoglobin ABG Sodium ABG Chloride ABG Glucose Oxyhemoglobin Carboxyhemoglobin Sodium 133 L Potassium Chloride 92.1 L Carbon Dioxide BUN 24 H Creatinine 0.4 L D Glucose 269 H POC Glucose 167 H 208 H Hemoglobin A1c Ferritin AST ALT 66 H Alkaline Phosphatase 142 H Lactate Dehydrogenase C-Reactive Protein Total Protein Albumin 3.2 L Arterial Blood Glucose Coronavirus (PCR) 05/01/21 05/01/21 05/01/21 05:39 05:39 07:45 WBC MCHC RDW 16.0 H Lymph % (Auto) Lymph # (Auto) Baso # (Auto) Seg Neutrophils % Seg Neuts % (Manual) Lymphocytes % (Manual) Seg Neutrophils # Seg Neutrophils # Man Lymphocytes # (Manual) D-Dimer 3984.95 H ABG pH POC ABG pO2 ABG pO2 ABG HCO3 ABG O2 Saturation ABG Base Excess ABG Oxyhemoglobin ABG Sodium ABG Chloride ABG Glucose Oxyhemoglobin Carboxyhemoglobin Sodium Potassium Chloride Carbon Dioxide BUN Creatinine Glucose POC Glucose 229 H Hemoglobin A1c Ferritin AST ALT Alkaline Phosphatase Lactate Dehydrogenase C-Reactive Protein Total Protein Albumin Arterial Blood Glucose Coronavirus (PCR) 05/01/21 05/01/21 05/01/21 12:10 15:46 21:06 WBC MCHC RDW Lymph % (Auto) Lymph # (Auto) Baso # (Auto) Seg Neutrophils % Seg Neuts % (Manual) Lymphocytes % (Manual) Seg Neutrophils # Seg Neutrophils # Man Lymphocytes # (Manual) D-Dimer ABG pH POC ABG pO2 ABG pO2 ABG HCO3 ABG O2 Saturation ABG Base Excess ABG Oxyhemoglobin ABG Sodium ABG Chloride ABG Glucose Oxyhemoglobin Carboxyhemoglobin Sodium Potassium Chloride Carbon Dioxide BUN Creatinine Glucose POC Glucose 296 H 279 H 232 H Hemoglobin A1c Ferritin AST ALT Alkaline Phosphatase Lactate Dehydrogenase C-Reactive Protein Total Protein Albumin Arterial Blood Glucose Coronavirus (PCR) 05/02/21 05/02/21 05/02/21 04:55 04:55 04:55 WBC MCHC RDW 16.1 H Lymph % (Auto) Lymph # (Auto) Baso # (Auto) Seg Neutrophils % Seg Neuts % (Manual) Lymphocytes % (Manual) Seg Neutrophils # Seg Neutrophils # Man Lymphocytes # (Manual) D-Dimer 1401.08 H ABG pH POC ABG pO2 ABG pO2 ABG HCO3 ABG O2 Saturation ABG Base Excess ABG Oxyhemoglobin ABG Sodium ABG Chloride ABG Glucose Oxyhemoglobin Carboxyhemoglobin Sodium 131 L Potassium Chloride 95.5 L Carbon Dioxide BUN 20 H Creatinine 0.3 L Glucose 288 H POC Glucose Hemoglobin A1c Ferritin AST ALT Alkaline Phosphatase Lactate Dehydrogenase C-Reactive Protein Total Protein 6.0 L Albumin 3.1 L Arterial Blood Glucose Coronavirus (PCR) 05/02/21 05/02/21 05/02/21 07:53 11:45 15:25 WBC MCHC RDW Lymph % (Auto) Lymph # (Auto) Baso # (Auto) Seg Neutrophils % Seg Neuts % (Manual) Lymphocytes % (Manual) Seg Neutrophils # Seg Neutrophils # Man Lymphocytes # (Manual) D-Dimer ABG pH POC ABG pO2 ABG pO2 ABG HCO3 ABG O2 Saturation ABG Base Excess ABG Oxyhemoglobin ABG Sodium ABG Chloride ABG Glucose Oxyhemoglobin Carboxyhemoglobin Sodium Potassium Chloride Carbon Dioxide BUN Creatinine Glucose POC Glucose 180 H 228 H 275 H Hemoglobin A1c Ferritin AST ALT Alkaline Phosphatase Lactate Dehydrogenase C-Reactive Protein Total Protein Albumin Arterial Blood Glucose Coronavirus (PCR) 05/02/21 05/03/21 05/03/21 22:56 04:30 04:49 WBC MCHC RDW Lymph % (Auto) Lymph # (Auto) Baso # (Auto) Seg Neutrophils % Seg Neuts % (Manual) Lymphocytes % (Manual) Seg Neutrophils # Seg Neutrophils # Man Lymphocytes # (Manual) D-Dimer ABG pH 7.229 L POC ABG pO2 65.3 L ABG pO2 ABG HCO3 ABG O2 Saturation ABG Base Excess ABG Oxyhemoglobin 87.8 L ABG Sodium 133.0 L ABG Chloride 97.0 L ABG Glucose 403 H Oxyhemoglobin Carboxyhemoglobin Sodium 130 L Potassium Chloride 94.9 L Carbon Dioxide BUN 20 H Creatinine 0.5 L D Glucose 359 H POC Glucose 293 H Hemoglobin A1c Ferritin AST 54 H ALT 75 H Alkaline Phosphatase 138 H Lactate Dehydrogenase C-Reactive Protein Total Protein Albumin 3.6 L Arterial Blood Glucose 403 H Coronavirus (PCR) 05/03/21 05/03/21 05/03/21 05:27 11:26 17:57 WBC MCHC RDW Lymph % (Auto) Lymph # (Auto) Baso # (Auto) Seg Neutrophils % Seg Neuts % (Manual) Lymphocytes % (Manual) Seg Neutrophils # Seg Neutrophils # Man Lymphocytes # (Manual) D-Dimer ABG pH POC ABG pO2 ABG pO2 ABG HCO3 ABG O2 Saturation ABG Base Excess ABG Oxyhemoglobin ABG Sodium ABG Chloride ABG Glucose Oxyhemoglobin Carboxyhemoglobin Sodium Potassium Chloride Carbon Dioxide BUN Creatinine Glucose POC Glucose 361 H 297 H 226 H Hemoglobin A1c Ferritin AST ALT Alkaline Phosphatase Lactate Dehydrogenase C-Reactive Protein Total Protein Albumin Arterial Blood Glucose Coronavirus (PCR) 05/03/21 05/04/21 05/04/21 23:12 05:12 07:30 WBC MCHC RDW Lymph % (Auto) Lymph # (Auto) Baso # (Auto) Seg Neutrophils % Seg Neuts % (Manual) Lymphocytes % (Manual) Seg Neutrophils # Seg Neutrophils # Man Lymphocytes # (Manual) D-Dimer ABG pH POC ABG pO2 ABG pO2 ABG HCO3 ABG O2 Saturation ABG Base Excess ABG Oxyhemoglobin ABG Sodium ABG Chloride ABG Glucose Oxyhemoglobin Carboxyhemoglobin Sodium Potassium Chloride Carbon Dioxide BUN Creatinine Glucose POC Glucose 282 H 285 H 254 H Hemoglobin A1c Ferritin AST ALT Alkaline Phosphatase Lactate Dehydrogenase C-Reactive Protein Total Protein Albumin Arterial Blood Glucose Coronavirus (PCR) 05/04/21 05/04/21 05/04/21 08:58 11:45 16:07 WBC MCHC RDW Lymph % (Auto) Lymph # (Auto) Baso # (Auto) Seg Neutrophils % Seg Neuts % (Manual) Lymphocytes % (Manual) Seg Neutrophils # Seg Neutrophils # Man Lymphocytes # (Manual) D-Dimer ABG pH POC ABG pO2 ABG pO2 ABG HCO3 ABG O2 Saturation ABG Base Excess ABG Oxyhemoglobin ABG Sodium ABG Chloride ABG Glucose Oxyhemoglobin Carboxyhemoglobin Sodium 134 L Potassium Chloride Carbon Dioxide BUN 20 H Creatinine 0.3 L Glucose 267 H POC Glucose 244 H 297 H Hemoglobin A1c Ferritin AST ALT Alkaline Phosphatase Lactate Dehydrogenase C-Reactive Protein Total Protein 6.0 L Albumin 3.2 L Arterial Blood Glucose Coronavirus (PCR) 05/04/21 05/05/21 05/05/21 23:32 05:00 05:13 WBC MCHC RDW Lymph % (Auto) Lymph # (Auto) Baso # (Auto) Seg Neutrophils % Seg Neuts % (Manual) Lymphocytes % (Manual) Seg Neutrophils # Seg Neutrophils # Man Lymphocytes # (Manual) D-Dimer ABG pH POC ABG pO2 ABG pO2 ABG HCO3 ABG O2 Saturation ABG Base Excess ABG Oxyhemoglobin ABG Sodium ABG Chloride ABG Glucose Oxyhemoglobin Carboxyhemoglobin Sodium 132 L Potassium Chloride 96.4 L Carbon Dioxide BUN 22 H Creatinine 0.3 L Glucose 228 H POC Glucose 154 H 260 H Hemoglobin A1c Ferritin AST ALT 67 H Alkaline Phosphatase Lactate Dehydrogenase C-Reactive Protein Total Protein 6.1 L Albumin 3.2 L Arterial Blood Glucose Coronavirus (PCR) 08/05/05/21 05/05/21 11:32 17:49 23:07 WBC MCHC RDW Lymph % (Auto) Lymph # (Auto) Baso # (Auto) Seg Neutrophils % Seg Neuts % (Manual) Lymphocytes % (Manual) Seg Neutrophils # Seg Neutrophils # Man Lymphocytes # (Manual) D-Dimer ABG pH POC ABG pO2 ABG pO2 ABG HCO3 ABG O2 Saturation ABG Base Excess ABG Oxyhemoglobin ABG Sodium ABG Chloride ABG Glucose Oxyhemoglobin Carboxyhemoglobin Sodium Potassium Chloride Carbon Dioxide BUN Creatinine Glucose POC Glucose 279 H 308 H 213 H Hemoglobin A1c Ferritin AST ALT Alkaline Phosphatase Lactate Dehydrogenase C-Reactive Protein Total Protein Albumin Arterial Blood Glucose Coronavirus (PCR) 05/06/21 05/06/21 05/06/21 05:00 05:00 05:20 WBC MCHC RDW 16.8 H Lymph % (Auto) Lymph # (Auto) Baso # (Auto) Seg Neutrophils % Seg Neuts % (Manual) 99.0 H Lymphocytes % (Manual) Seg Neutrophils # Seg Neutrophils # Man 10.9 H Lymphocytes # (Manual) 0.0 L D-Dimer ABG pH POC ABG pO2 ABG pO2 ABG HCO3 ABG O2 Saturation ABG Base Excess ABG Oxyhemoglobin ABG Sodium ABG Chloride ABG Glucose Oxyhemoglobin Carboxyhemoglobin Sodium 133 L Potassium Chloride Carbon Dioxide BUN 21 H Creatinine 0.3 L Glucose 259 H POC Glucose 308 H Hemoglobin A1c Ferritin AST ALT Alkaline Phosphatase Lactate Dehydrogenase C-Reactive Protein Total Protein Albumin 3.2 L Arterial Blood Glucose Coronavirus (PCR) 05/06/21 05/06/21 05/06/21 11:24 17:54 21:32 WBC MCHC RDW Lymph % (Auto) Lymph # (Auto) Baso # (Auto) Seg Neutrophils % Seg Neuts % (Manual) Lymphocytes % (Manual) Seg Neutrophils # Seg Neutrophils # Man Lymphocytes # (Manual) D-Dimer ABG pH POC ABG pO2 ABG pO2 ABG HCO3 ABG O2 Saturation ABG Base Excess ABG Oxyhemoglobin ABG Sodium ABG Chloride ABG Glucose Oxyhemoglobin Carboxyhemoglobin Sodium Potassium Chloride Carbon Dioxide BUN Creatinine Glucose POC Glucose 262 H 124 H 246 H Hemoglobin A1c Ferritin AST ALT Alkaline Phosphatase Lactate Dehydrogenase C-Reactive Protein Total Protein Albumin Arterial Blood Glucose Coronavirus (PCR) 05/06/21 05/07/21 05/07/21 23:10 04:54 04:54 WBC MCHC RDW Lymph % (Auto) Lymph # (Auto) Baso # (Auto) Seg Neutrophils % Seg Neuts % (Manual) Lymphocytes % (Manual) Seg Neutrophils # Seg Neutrophils # Man Lymphocytes # (Manual) D-Dimer 1609.28 H ABG pH POC ABG pO2 ABG pO2 ABG HCO3 ABG O2 Saturation ABG Base Excess ABG Oxyhemoglobin ABG Sodium ABG Chloride ABG Glucose Oxyhemoglobin Carboxyhemoglobin Sodium 136 L Potassium Chloride Carbon Dioxide BUN 23 H Creatinine 0.3 L Glucose 110 H POC Glucose 249 H Hemoglobin A1c Ferritin AST ALT Alkaline Phosphatase Lactate Dehydrogenase C-Reactive Protein Total Protein 6.2 L Albumin 3.0 L Arterial Blood Glucose Coronavirus (PCR) 05/07/21 05/07/21 05/07/21 04:54 04:54 11:41 WBC MCHC RDW Lymph % (Auto) Lymph # (Auto) Baso # (Auto) Seg Neutrophils % Seg Neuts % (Manual) Lymphocytes % (Manual) Seg Neutrophils # Seg Neutrophils # Man Lymphocytes # (Manual) D-Dimer ABG pH POC ABG pO2 ABG pO2 ABG HCO3 ABG O2 Saturation ABG Base Excess ABG Oxyhemoglobin ABG Sodium ABG Chloride ABG Glucose Oxyhemoglobin Carboxyhemoglobin Sodium Potassium Chloride Carbon Dioxide BUN Creatinine Glucose POC Glucose 118 H Hemoglobin A1c Ferritin 296.1 H AST ALT Alkaline Phosphatase Lactate Dehydrogenase 724 H C-Reactive Protein Total Protein Albumin Arterial Blood Glucose Coronavirus (PCR) 05/07/21 05/07/21 05/08/21 16:43 22:34 06:44 WBC MCHC RDW Lymph % (Auto) Lymph # (Auto) Baso # (Auto) Seg Neutrophils % Seg Neuts % (Manual) Lymphocytes % (Manual) Seg Neutrophils # Seg Neutrophils # Man Lymphocytes # (Manual) D-Dimer ABG pH POC ABG pO2 ABG pO2 ABG HCO3 ABG O2 Saturation ABG Base Excess ABG Oxyhemoglobin ABG Sodium ABG Chloride ABG Glucose Oxyhemoglobin Carboxyhemoglobin Sodium Potassium Chloride Carbon Dioxide BUN Creatinine Glucose POC Glucose 159 H 233 H 235 H Hemoglobin A1c Ferritin AST ALT Alkaline Phosphatase Lactate Dehydrogenase C-Reactive Protein Total Protein Albumin Arterial Blood Glucose Coronavirus (PCR) 05/08/21 05/08/21 05/08/21 07:49 11:56 17:13 WBC MCHC RDW Lymph % (Auto) Lymph # (Auto) Baso # (Auto) Seg Neutrophils % Seg Neuts % (Manual) Lymphocytes % (Manual) Seg Neutrophils # Seg Neutrophils # Man Lymphocytes # (Manual) D-Dimer ABG pH POC ABG pO2 ABG pO2 ABG HCO3 ABG O2 Saturation ABG Base Excess ABG Oxyhemoglobin ABG Sodium ABG Chloride ABG Glucose Oxyhemoglobin Carboxyhemoglobin Sodium Potassium Chloride Carbon Dioxide BUN Creatinine Glucose POC Glucose 219 H 184 H 182 H Hemoglobin A1c Ferritin AST ALT Alkaline Phosphatase Lactate Dehydrogenase C-Reactive Protein Total Protein Albumin Arterial Blood Glucose Coronavirus (PCR) 05/08/21 05/09/21 05/09/21 23:35 05:20 05:20 WBC MCHC RDW Lymph % (Auto) Lymph # (Auto) Baso # (Auto) Seg Neutrophils % Seg Neuts % (Manual) Lymphocytes % (Manual) Seg Neutrophils # Seg Neutrophils # Man Lymphocytes # (Manual) D-Dimer 1003.87 H ABG pH POC ABG pO2 ABG pO2 ABG HCO3 ABG O2 Saturation ABG Base Excess ABG Oxyhemoglobin ABG Sodium ABG Chloride ABG Glucose Oxyhemoglobin Carboxyhemoglobin Sodium Potassium Chloride Carbon Dioxide BUN Creatinine Glucose POC Glucose 198 H Hemoglobin A1c Ferritin 378.7 H AST ALT Alkaline Phosphatase Lactate Dehydrogenase C-Reactive Protein Total Protein Albumin Arterial Blood Glucose Coronavirus (PCR) 05/09/21 05/09/21 05/09/21 05:20 06:04 12:53 WBC MCHC RDW Lymph % (Auto) Lymph # (Auto) Baso # (Auto) Seg Neutrophils % Seg Neuts % (Manual) Lymphocytes % (Manual) Seg Neutrophils # Seg Neutrophils # Man Lymphocytes # (Manual) D-Dimer ABG pH POC ABG pO2 ABG pO2 ABG HCO3 ABG O2 Saturation ABG Base Excess ABG Oxyhemoglobin ABG Sodium ABG Chloride ABG Glucose Oxyhemoglobin Carboxyhemoglobin Sodium Potassium Chloride Carbon Dioxide BUN Creatinine Glucose POC Glucose 159 H 180 H Hemoglobin A1c Ferritin AST ALT Alkaline Phosphatase Lactate Dehydrogenase 558 H C-Reactive Protein 2.40 H Total Protein Albumin Arterial Blood Glucose Coronavirus (PCR) 05/09/21 05/09/21 05/10/21 16:43 21:27 10:18 WBC MCHC RDW Lymph % (Auto) Lymph # (Auto) Baso # (Auto) Seg Neutrophils % Seg Neuts % (Manual) Lymphocytes % (Manual) Seg Neutrophils # Seg Neutrophils # Man Lymphocytes # (Manual) D-Dimer ABG pH POC ABG pO2 ABG pO2 ABG HCO3 ABG O2 Saturation ABG Base Excess ABG Oxyhemoglobin ABG Sodium ABG Chloride ABG Glucose Oxyhemoglobin Carboxyhemoglobin Sodium Potassium Chloride Carbon Dioxide BUN Creatinine Glucose POC Glucose 212 H 285 H 261 H Hemoglobin A1c Ferritin AST ALT Alkaline Phosphatase Lactate Dehydrogenase C-Reactive Protein Total Protein Albumin Arterial Blood Glucose Coronavirus (PCR) 05/10/21 05/10/21 05/11/21 17:58 18:02 00:29 WBC MCHC RDW Lymph % (Auto) Lymph # (Auto) Baso # (Auto) Seg Neutrophils % Seg Neuts % (Manual) Lymphocytes % (Manual) Seg Neutrophils # Seg Neutrophils # Man Lymphocytes # (Manual) D-Dimer ABG pH POC ABG pO2 ABG pO2 ABG HCO3 ABG O2 Saturation ABG Base Excess ABG Oxyhemoglobin ABG Sodium ABG Chloride ABG Glucose Oxyhemoglobin Carboxyhemoglobin Sodium Potassium Chloride Carbon Dioxide BUN Creatinine Glucose POC Glucose 213 H 179 H 149 H Hemoglobin A1c Ferritin AST ALT Alkaline Phosphatase Lactate Dehydrogenase C-Reactive Protein Total Protein Albumin Arterial Blood Glucose Coronavirus (PCR) 05/11/21 05/11/21 05/11/21 05:22 11:32 17:00 WBC 14.9 H MCHC RDW 18.9 H Lymph % (Auto) 4.9 L Lymph # (Auto) 0.7 L Baso # (Auto) 0.2 H Seg Neutrophils % Seg Neuts % (Manual) Lymphocytes % (Manual) Seg Neutrophils # 13.3 H Seg Neutrophils # Man Lymphocytes # (Manual) D-Dimer ABG pH POC ABG pO2 ABG pO2 ABG HCO3 ABG O2 Saturation ABG Base Excess ABG Oxyhemoglobin ABG Sodium ABG Chloride ABG Glucose Oxyhemoglobin Carboxyhemoglobin Sodium Potassium Chloride Carbon Dioxide BUN Creatinine Glucose POC Glucose 162 H 179 H Hemoglobin A1c Ferritin AST ALT Alkaline Phosphatase Lactate Dehydrogenase C-Reactive Protein Total Protein Albumin Arterial Blood Glucose Coronavirus (PCR) 05/11/21 05/11/21 05/11/21 17:00 17:33 22:03 WBC MCHC RDW Lymph % (Auto) Lymph # (Auto) Baso # (Auto) Seg Neutrophils % Seg Neuts % (Manual) Lymphocytes % (Manual) Seg Neutrophils # Seg Neutrophils # Man Lymphocytes # (Manual) D-Dimer ABG pH POC ABG pO2 ABG pO2 ABG HCO3 ABG O2 Saturation ABG Base Excess ABG Oxyhemoglobin ABG Sodium ABG Chloride ABG Glucose Oxyhemoglobin Carboxyhemoglobin Sodium 135 L Potassium Chloride 97.3 L Carbon Dioxide BUN 21 H Creatinine 0.3 L Glucose 133 H POC Glucose 140 H 282 H Hemoglobin A1c Ferritin AST ALT 60 H Alkaline Phosphatase Lactate Dehydrogenase C-Reactive Protein Total Protein Albumin 3.1 L Arterial Blood Glucose Coronavirus (PCR) 05/12/21 05/12/21 05/12/21 04:05 04:05 04:05 WBC MCHC RDW 18.4 H Lymph % (Auto) Lymph # (Auto) Baso # (Auto) Seg Neutrophils % Seg Neuts % (Manual) 94.0 H Lymphocytes % (Manual) 4.0 L Seg Neutrophils # Seg Neutrophils # Man Lymphocytes # (Manual) 0.3 L D-Dimer ABG pH POC ABG pO2 ABG pO2 ABG HCO3 ABG O2 Saturation ABG Base Excess ABG Oxyhemoglobin ABG Sodium ABG Chloride ABG Glucose Oxyhemoglobin Carboxyhemoglobin Sodium 136 L Potassium Chloride Carbon Dioxide BUN 18 H Creatinine 0.2 L Glucose 142 H POC Glucose Hemoglobin A1c Ferritin 350.7 H AST ALT Alkaline Phosphatase Lactate Dehydrogenase 546 H C-Reactive Protein Total Protein 6.1 L Albumin 3.0 L Arterial Blood Glucose Coronavirus (PCR) 05/12/21 05/12/21 05/12/21 05:11 11:17 16:27 WBC MCHC RDW Lymph % (Auto) Lymph # (Auto) Baso # (Auto) Seg Neutrophils % Seg Neuts % (Manual) Lymphocytes % (Manual) Seg Neutrophils # Seg Neutrophils # Man Lymphocytes # (Manual) D-Dimer ABG pH POC ABG pO2 ABG pO2 ABG HCO3 ABG O2 Saturation ABG Base Excess ABG Oxyhemoglobin ABG Sodium ABG Chloride ABG Glucose Oxyhemoglobin Carboxyhemoglobin Sodium Potassium Chloride Carbon Dioxide BUN Creatinine Glucose POC Glucose 152 H 190 H 261 H Hemoglobin A1c Ferritin AST ALT Alkaline Phosphatase Lactate Dehydrogenase C-Reactive Protein Total Protein Albumin Arterial Blood Glucose Coronavirus (PCR) 05/12/21 05/13/21 05/13/21 20:55 11:08 21:41 WBC MCHC RDW Lymph % (Auto) Lymph # (Auto) Baso # (Auto) Seg Neutrophils % Seg Neuts % (Manual) Lymphocytes % (Manual) Seg Neutrophils # Seg Neutrophils # Man Lymphocytes # (Manual) D-Dimer ABG pH POC ABG pO2 ABG pO2 ABG HCO3 ABG O2 Saturation ABG Base Excess ABG Oxyhemoglobin ABG Sodium ABG Chloride ABG Glucose Oxyhemoglobin Carboxyhemoglobin Sodium Potassium Chloride Carbon Dioxide BUN Creatinine Glucose POC Glucose 231 H 106 H 174 H Hemoglobin A1c Ferritin AST ALT Alkaline Phosphatase Lactate Dehydrogenase C-Reactive Protein Total Protein Albumin Arterial Blood Glucose Coronavirus (PCR) 05/14/21 05/14/21 05/14/21 00:53 02:23 06:06 WBC MCHC RDW Lymph % (Auto) Lymph # (Auto) Baso # (Auto) Seg Neutrophils % Seg Neuts % (Manual) Lymphocytes % (Manual) Seg Neutrophils # Seg Neutrophils # Man Lymphocytes # (Manual) D-Dimer ABG pH POC ABG pO2 ABG pO2 130.3 H ABG HCO3 30.6 H ABG O2 Saturation ABG Base Excess 4.9 H ABG Oxyhemoglobin ABG Sodium ABG Chloride ABG Glucose Oxyhemoglobin Carboxyhemoglobin Sodium Potassium Chloride Carbon Dioxide BUN Creatinine Glucose POC Glucose 229 H 119 H Hemoglobin A1c Ferritin AST ALT Alkaline Phosphatase Lactate Dehydrogenase C-Reactive Protein Total Protein Albumin Arterial Blood Glucose Coronavirus (PCR) 05/14/21 05/14/21 05/14/21 07:13 07:13 07:13 WBC MCHC RDW Lymph % (Auto) Lymph # (Auto) Baso # (Auto) Seg Neutrophils % Seg Neuts % (Manual) Lymphocytes % (Manual) Seg Neutrophils # Seg Neutrophils # Man Lymphocytes # (Manual) D-Dimer 712.80 H ABG pH POC ABG pO2 ABG pO2 ABG HCO3 ABG O2 Saturation ABG Base Excess ABG Oxyhemoglobin ABG Sodium ABG Chloride ABG Glucose Oxyhemoglobin Carboxyhemoglobin Sodium 133 L Potassium Chloride 95.5 L Carbon Dioxide 32 H BUN Creatinine 0.2 L Glucose 137 H POC Glucose Hemoglobin A1c Ferritin 283.5 H AST ALT 63 H Alkaline Phosphatase Lactate Dehydrogenase 563 H C-Reactive Protein Total Protein 6.1 L Albumin 3.0 L Arterial Blood Glucose Coronavirus (PCR) 05/14/21 05/14/21 05/14/21 12:21 15:33 21:50 WBC MCHC RDW Lymph % (Auto) Lymph # (Auto) Baso # (Auto) Seg Neutrophils % Seg Neuts % (Manual) Lymphocytes % (Manual) Seg Neutrophils # Seg Neutrophils # Man Lymphocytes # (Manual) D-Dimer ABG pH POC ABG pO2 ABG pO2 ABG HCO3 ABG O2 Saturation ABG Base Excess ABG Oxyhemoglobin ABG Sodium ABG Chloride ABG Glucose Oxyhemoglobin Carboxyhemoglobin Sodium Potassium Chloride Carbon Dioxide BUN Creatinine Glucose POC Glucose 143 H 204 H 202 H Hemoglobin A1c Ferritin AST ALT Alkaline Phosphatase Lactate Dehydrogenase C-Reactive Protein Total Protein Albumin Arterial Blood Glucose Coronavirus (PCR) 05/15/21 05/15/21 05/15/21 05:05 11:12 16:39 WBC MCHC RDW Lymph % (Auto) Lymph # (Auto) Baso # (Auto) Seg Neutrophils % Seg Neuts % (Manual) Lymphocytes % (Manual) Seg Neutrophils # Seg Neutrophils # Man Lymphocytes # (Manual) D-Dimer ABG pH POC ABG pO2 ABG pO2 ABG HCO3 ABG O2 Saturation ABG Base Excess ABG Oxyhemoglobin ABG Sodium ABG Chloride ABG Glucose Oxyhemoglobin Carboxyhemoglobin Sodium Potassium Chloride Carbon Dioxide BUN Creatinine Glucose POC Glucose 125 H 201 H 241 H Hemoglobin A1c Ferritin AST ALT Alkaline Phosphatase Lactate Dehydrogenase C-Reactive Protein Total Protein Albumin Arterial Blood Glucose Coronavirus (PCR) 05/15/21 05/16/21 05/16/21 21:31 05:04 10:40 WBC MCHC RDW Lymph % (Auto) Lymph # (Auto) Baso # (Auto) Seg Neutrophils % Seg Neuts % (Manual) Lymphocytes % (Manual) Seg Neutrophils # Seg Neutrophils # Man Lymphocytes # (Manual) D-Dimer ABG pH POC ABG pO2 ABG pO2 ABG HCO3 ABG O2 Saturation ABG Base Excess ABG Oxyhemoglobin ABG Sodium ABG Chloride ABG Glucose Oxyhemoglobin Carboxyhemoglobin Sodium Potassium Chloride Carbon Dioxide BUN Creatinine Glucose POC Glucose 234 H 123 H 231 H Hemoglobin A1c Ferritin AST ALT Alkaline Phosphatase Lactate Dehydrogenase C-Reactive Protein Total Protein Albumin Arterial Blood Glucose Coronavirus (PCR) 05/16/21 05/16/21 05/17/21 18:23 21:29 06:20 WBC MCHC RDW 18.8 H Lymph % (Auto) 10.2 L Lymph # (Auto) 0.8 L Baso # (Auto) Seg Neutrophils % 85.8 H Seg Neuts % (Manual) Lymphocytes % (Manual) Seg Neutrophils # Seg Neutrophils # Man Lymphocytes # (Manual) D-Dimer ABG pH POC ABG pO2 ABG pO2 ABG HCO3 ABG O2 Saturation ABG Base Excess ABG Oxyhemoglobin ABG Sodium ABG Chloride ABG Glucose Oxyhemoglobin Carboxyhemoglobin Sodium Potassium Chloride Carbon Dioxide BUN Creatinine Glucose POC Glucose 266 H 234 H Hemoglobin A1c Ferritin AST ALT Alkaline Phosphatase Lactate Dehydrogenase C-Reactive Protein Total Protein Albumin Arterial Blood Glucose Coronavirus (PCR) 05/17/21 05/17/21 05/17/21 06:20 11:06 16:36 WBC MCHC RDW Lymph % (Auto) Lymph # (Auto) Baso # (Auto) Seg Neutrophils % Seg Neuts % (Manual) Lymphocytes % (Manual) Seg Neutrophils # Seg Neutrophils # Man Lymphocytes # (Manual) D-Dimer ABG pH POC ABG pO2 ABG pO2 ABG HCO3 ABG O2 Saturation ABG Base Excess ABG Oxyhemoglobin ABG Sodium ABG Chloride ABG Glucose Oxyhemoglobin Carboxyhemoglobin Sodium Potassium Chloride Carbon Dioxide 33 H BUN Creatinine 0.2 L Glucose 101 H POC Glucose 209 H 180 H Hemoglobin A1c Ferritin AST ALT Alkaline Phosphatase Lactate Dehydrogenase C-Reactive Protein Total Protein Albumin Arterial Blood Glucose Coronavirus (PCR) 05/17/21 05/18/21 05/18/21 21:06 12:00 15:06 WBC MCHC RDW Lymph % (Auto) Lymph # (Auto) Baso # (Auto) Seg Neutrophils % Seg Neuts % (Manual) Lymphocytes % (Manual) Seg Neutrophils # Seg Neutrophils # Man Lymphocytes # (Manual) D-Dimer 874.02 H ABG pH POC ABG pO2 ABG pO2 ABG HCO3 ABG O2 Saturation ABG Base Excess ABG Oxyhemoglobin ABG Sodium ABG Chloride ABG Glucose Oxyhemoglobin Carboxyhemoglobin Sodium Potassium Chloride Carbon Dioxide BUN Creatinine Glucose POC Glucose 256 H 139 H Hemoglobin A1c Ferritin AST ALT Alkaline Phosphatase Lactate Dehydrogenase C-Reactive Protein Total Protein Albumin Arterial Blood Glucose Coronavirus (PCR) 05/18/21 05/18/21 05/18/21 15:06 15:06 16:08 WBC MCHC RDW Lymph % (Auto) Lymph # (Auto) Baso # (Auto) Seg Neutrophils % Seg Neuts % (Manual) Lymphocytes % (Manual) Seg Neutrophils # Seg Neutrophils # Man Lymphocytes # (Manual) D-Dimer ABG pH POC ABG pO2 ABG pO2 ABG HCO3 ABG O2 Saturation ABG Base Excess ABG Oxyhemoglobin ABG Sodium ABG Chloride ABG Glucose Oxyhemoglobin Carboxyhemoglobin Sodium Potassium Chloride Carbon Dioxide BUN Creatinine Glucose POC Glucose 178 H Hemoglobin A1c Ferritin 289.6 H AST ALT Alkaline Phosphatase Lactate Dehydrogenase 605 H C-Reactive Protein Total Protein Albumin Arterial Blood Glucose Coronavirus (PCR) 05/18/21 05/19/21 05/19/21 21:22 11:57 15:26 WBC MCHC RDW Lymph % (Auto) Lymph # (Auto) Baso # (Auto) Seg Neutrophils % Seg Neuts % (Manual) Lymphocytes % (Manual) Seg Neutrophils # Seg Neutrophils # Man Lymphocytes # (Manual) D-Dimer ABG pH POC ABG pO2 ABG pO2 ABG HCO3 ABG O2 Saturation ABG Base Excess ABG Oxyhemoglobin ABG Sodium ABG Chloride ABG Glucose Oxyhemoglobin Carboxyhemoglobin Sodium Potassium Chloride Carbon Dioxide BUN Creatinine Glucose POC Glucose 241 H 201 H 209 H Hemoglobin A1c Ferritin AST ALT Alkaline Phosphatase Lactate Dehydrogenase C-Reactive Protein Total Protein Albumin Arterial Blood Glucose Coronavirus (PCR) 05/19/21 05/20/21 05/20/21 20:59 07:38 08:01 WBC MCHC RDW 19.7 H Lymph % (Auto) 8.3 L Lymph # (Auto) 0.8 L Baso # (Auto) Seg Neutrophils % 88.6 H Seg Neuts % (Manual) Lymphocytes % (Manual) Seg Neutrophils # 8.4 H Seg Neutrophils # Man Lymphocytes # (Manual) D-Dimer ABG pH POC ABG pO2 ABG pO2 ABG HCO3 ABG O2 Saturation ABG Base Excess ABG Oxyhemoglobin ABG Sodium ABG Chloride ABG Glucose Oxyhemoglobin Carboxyhemoglobin Sodium Potassium Chloride Carbon Dioxide BUN Creatinine Glucose POC Glucose 226 H 130 H Hemoglobin A1c Ferritin AST ALT Alkaline Phosphatase Lactate Dehydrogenase C-Reactive Protein Total Protein Albumin Arterial Blood Glucose Coronavirus (PCR) 05/20/21 05/20/21 05/20/21 08:01 11:00 16:43 WBC MCHC RDW Lymph % (Auto) Lymph # (Auto) Baso # (Auto) Seg Neutrophils % Seg Neuts % (Manual) Lymphocytes % (Manual) Seg Neutrophils # Seg Neutrophils # Man Lymphocytes # (Manual) D-Dimer ABG pH POC ABG pO2 ABG pO2 ABG HCO3 ABG O2 Saturation ABG Base Excess ABG Oxyhemoglobin ABG Sodium ABG Chloride ABG Glucose Oxyhemoglobin Carboxyhemoglobin Sodium Potassium Chloride Carbon Dioxide BUN 18 H Creatinine 0.2 L Glucose 132 H POC Glucose 237 H 240 H Hemoglobin A1c Ferritin AST ALT Alkaline Phosphatase Lactate Dehydrogenase C-Reactive Protein Total Protein Albumin Arterial Blood Glucose Coronavirus (PCR) 05/20/21 05/21/21 05/21/21 21:21 07:35 11:32 WBC MCHC RDW Lymph % (Auto) Lymph # (Auto) Baso # (Auto) Seg Neutrophils % Seg Neuts % (Manual) Lymphocytes % (Manual) Seg Neutrophils # Seg Neutrophils # Man Lymphocytes # (Manual) D-Dimer ABG pH POC ABG pO2 ABG pO2 ABG HCO3 ABG O2 Saturation ABG Base Excess ABG Oxyhemoglobin ABG Sodium ABG Chloride ABG Glucose Oxyhemoglobin Carboxyhemoglobin Sodium Potassium Chloride Carbon Dioxide BUN Creatinine Glucose POC Glucose 241 H 162 H 171 H Hemoglobin A1c Ferritin AST ALT Alkaline Phosphatase Lactate Dehydrogenase C-Reactive Protein Total Protein Albumin Arterial Blood Glucose Coronavirus (PCR) 05/21/21 05/21/21 05/22/21 16:22 20:43 05:14 WBC MCHC RDW Lymph % (Auto) Lymph # (Auto) Baso # (Auto) Seg Neutrophils % Seg Neuts % (Manual) Lymphocytes % (Manual) Seg Neutrophils # Seg Neutrophils # Man Lymphocytes # (Manual) D-Dimer ABG pH POC ABG pO2 ABG pO2 ABG HCO3 ABG O2 Saturation ABG Base Excess ABG Oxyhemoglobin ABG Sodium ABG Chloride ABG Glucose Oxyhemoglobin Carboxyhemoglobin Sodium Potassium Chloride Carbon Dioxide BUN Creatinine Glucose POC Glucose 244 H 299 H 140 H Hemoglobin A1c Ferritin AST ALT Alkaline Phosphatase Lactate Dehydrogenase C-Reactive Protein Total Protein Albumin Arterial Blood Glucose Coronavirus (PCR) 05/22/21 05/22/21 05/22/21 08:45 11:54 16:15 WBC MCHC RDW Lymph % (Auto) Lymph # (Auto) Baso # (Auto) Seg Neutrophils % Seg Neuts % (Manual) Lymphocytes % (Manual) Seg Neutrophils # Seg Neutrophils # Man Lymphocytes # (Manual) D-Dimer ABG pH POC ABG pO2 ABG pO2 ABG HCO3 ABG O2 Saturation ABG Base Excess ABG Oxyhemoglobin ABG Sodium ABG Chloride ABG Glucose Oxyhemoglobin Carboxyhemoglobin Sodium Potassium Chloride Carbon Dioxide BUN Creatinine Glucose POC Glucose 133 H 265 H 221 H Hemoglobin A1c Ferritin AST ALT Alkaline Phosphatase Lactate Dehydrogenase C-Reactive Protein Total Protein Albumin Arterial Blood Glucose Coronavirus (PCR) 05/22/21 05/23/21 05/23/21 21:43 08:20 09:50 WBC MCHC RDW Lymph % (Auto) Lymph # (Auto) Baso # (Auto) Seg Neutrophils % Seg Neuts % (Manual) Lymphocytes % (Manual) Seg Neutrophils # Seg Neutrophils # Man Lymphocytes # (Manual) D-Dimer 910.38 H ABG pH POC ABG pO2 ABG pO2 ABG HCO3 ABG O2 Saturation ABG Base Excess ABG Oxyhemoglobin ABG Sodium ABG Chloride ABG Glucose Oxyhemoglobin Carboxyhemoglobin Sodium Potassium Chloride Carbon Dioxide BUN Creatinine Glucose POC Glucose 262 H 140 H Hemoglobin A1c Ferritin AST ALT Alkaline Phosphatase Lactate Dehydrogenase C-Reactive Protein Total Protein Albumin Arterial Blood Glucose Coronavirus (PCR) 05/23/21 05/23/21 05/23/21 09:50 09:50 10:52 WBC MCHC RDW Lymph % (Auto) Lymph # (Auto) Baso # (Auto) Seg Neutrophils % Seg Neuts % (Manual) Lymphocytes % (Manual) Seg Neutrophils # Seg Neutrophils # Man Lymphocytes # (Manual) D-Dimer ABG pH POC ABG pO2 ABG pO2 ABG HCO3 ABG O2 Saturation ABG Base Excess ABG Oxyhemoglobin ABG Sodium ABG Chloride ABG Glucose Oxyhemoglobin Carboxyhemoglobin Sodium Potassium Chloride Carbon Dioxide BUN Creatinine Glucose POC Glucose 241 H Hemoglobin A1c Ferritin 244.9 H AST ALT Alkaline Phosphatase Lactate Dehydrogenase 584 H C-Reactive Protein Total Protein Albumin Arterial Blood Glucose Coronavirus (PCR) 05/23/21 05/23/21 05/24/21 17:24 21:52 07:44 WBC MCHC RDW Lymph % (Auto) Lymph # (Auto) Baso # (Auto) Seg Neutrophils % Seg Neuts % (Manual) Lymphocytes % (Manual) Seg Neutrophils # Seg Neutrophils # Man Lymphocytes # (Manual) D-Dimer ABG pH POC ABG pO2 ABG pO2 ABG HCO3 ABG O2 Saturation ABG Base Excess ABG Oxyhemoglobin ABG Sodium ABG Chloride ABG Glucose Oxyhemoglobin Carboxyhemoglobin Sodium Potassium Chloride Carbon Dioxide BUN Creatinine Glucose POC Glucose 197 H 289 H 161 H Hemoglobin A1c Ferritin AST ALT Alkaline Phosphatase Lactate Dehydrogenase C-Reactive Protein Total Protein Albumin Arterial Blood Glucose Coronavirus (PCR) 05/24/21 05/24/21 05/24/21 11:17 17:51 21:26 WBC MCHC RDW Lymph % (Auto) Lymph # (Auto) Baso # (Auto) Seg Neutrophils % Seg Neuts % (Manual) Lymphocytes % (Manual) Seg Neutrophils # Seg Neutrophils # Man Lymphocytes # (Manual) D-Dimer ABG pH POC ABG pO2 ABG pO2 ABG HCO3 ABG O2 Saturation ABG Base Excess ABG Oxyhemoglobin ABG Sodium ABG Chloride ABG Glucose Oxyhemoglobin Carboxyhemoglobin Sodium Potassium Chloride Carbon Dioxide BUN Creatinine Glucose POC Glucose 308 H 175 H 198 H Hemoglobin A1c Ferritin AST ALT Alkaline Phosphatase Lactate Dehydrogenase C-Reactive Protein Total Protein Albumin Arterial Blood Glucose Coronavirus (PCR) 05/25/21 05/25/21 05/25/21 08:14 11:13 17:13 WBC MCHC RDW Lymph % (Auto) Lymph # (Auto) Baso # (Auto) Seg Neutrophils % Seg Neuts % (Manual) Lymphocytes % (Manual) Seg Neutrophils # Seg Neutrophils # Man Lymphocytes # (Manual) D-Dimer ABG pH POC ABG pO2 ABG pO2 ABG HCO3 ABG O2 Saturation ABG Base Excess ABG Oxyhemoglobin ABG Sodium ABG Chloride ABG Glucose Oxyhemoglobin Carboxyhemoglobin Sodium Potassium Chloride Carbon Dioxide BUN Creatinine Glucose POC Glucose 203 H 339 H 235 H Hemoglobin A1c Ferritin AST ALT Alkaline Phosphatase Lactate Dehydrogenase C-Reactive Protein Total Protein Albumin Arterial Blood Glucose Coronavirus (PCR) 05/25/21 05/26/21 05/26/21 21:03 07:33 11:19 WBC MCHC RDW Lymph % (Auto) Lymph # (Auto) Baso # (Auto) Seg Neutrophils % Seg Neuts % (Manual) Lymphocytes % (Manual) Seg Neutrophils # Seg Neutrophils # Man Lymphocytes # (Manual) D-Dimer ABG pH POC ABG pO2 ABG pO2 ABG HCO3 ABG O2 Saturation ABG Base Excess ABG Oxyhemoglobin ABG Sodium ABG Chloride ABG Glucose Oxyhemoglobin Carboxyhemoglobin Sodium Potassium Chloride Carbon Dioxide BUN Creatinine Glucose POC Glucose 263 H 156 H 288 H Hemoglobin A1c Ferritin AST ALT Alkaline Phosphatase Lactate Dehydrogenase C-Reactive Protein Total Protein Albumin Arterial Blood Glucose Coronavirus (PCR) 09/09/0305/26/21 05/27/21 16:26 20:55 07:38 WBC MCHC RDW Lymph % (Auto) Lymph # (Auto) Baso # (Auto) Seg Neutrophils % Seg Neuts % (Manual) Lymphocytes % (Manual) Seg Neutrophils # Seg Neutrophils # Man Lymphocytes # (Manual) D-Dimer ABG pH POC ABG pO2 ABG pO2 ABG HCO3 ABG O2 Saturation ABG Base Excess ABG Oxyhemoglobin ABG Sodium ABG Chloride ABG Glucose Oxyhemoglobin Carboxyhemoglobin Sodium Potassium Chloride Carbon Dioxide BUN Creatinine Glucose POC Glucose 286 H 293 H 115 H Hemoglobin A1c Ferritin AST ALT Alkaline Phosphatase Lactate Dehydrogenase C-Reactive Protein Total Protein Albumin Arterial Blood Glucose Coronavirus (PCR) 05/27/21 05/27/21 05/27/21 11:46 15:58 21:02 WBC MCHC RDW Lymph % (Auto) Lymph # (Auto) Baso # (Auto) Seg Neutrophils % Seg Neuts % (Manual) Lymphocytes % (Manual) Seg Neutrophils # Seg Neutrophils # Man Lymphocytes # (Manual) D-Dimer ABG pH POC ABG pO2 ABG pO2 ABG HCO3 ABG O2 Saturation ABG Base Excess ABG Oxyhemoglobin ABG Sodium ABG Chloride ABG Glucose Oxyhemoglobin Carboxyhemoglobin Sodium Potassium Chloride Carbon Dioxide BUN Creatinine Glucose POC Glucose 260 H 318 H 246 H Hemoglobin A1c Ferritin AST ALT Alkaline Phosphatase Lactate Dehydrogenase C-Reactive Protein Total Protein Albumin Arterial Blood Glucose Coronavirus (PCR) 05/28/21 05/28/21 05/28/21 07:34 11:31 16:36 WBC MCHC RDW Lymph % (Auto) Lymph # (Auto) Baso # (Auto) Seg Neutrophils % Seg Neuts % (Manual) Lymphocytes % (Manual) Seg Neutrophils # Seg Neutrophils # Man Lymphocytes # (Manual) D-Dimer ABG pH POC ABG pO2 ABG pO2 ABG HCO3 ABG O2 Saturation ABG Base Excess ABG Oxyhemoglobin ABG Sodium ABG Chloride ABG Glucose Oxyhemoglobin Carboxyhemoglobin Sodium Potassium Chloride Carbon Dioxide BUN Creatinine Glucose POC Glucose 185 H 297 H 183 H Hemoglobin A1c Ferritin AST ALT Alkaline Phosphatase Lactate Dehydrogenase C-Reactive Protein Total Protein Albumin Arterial Blood Glucose Coronavirus (PCR) 05/28/21 05/29/21 05/29/21 21:19 07:34 11:19 WBC MCHC RDW Lymph % (Auto) Lymph # (Auto) Baso # (Auto) Seg Neutrophils % Seg Neuts % (Manual) Lymphocytes % (Manual) Seg Neutrophils # Seg Neutrophils # Man Lymphocytes # (Manual) D-Dimer ABG pH POC ABG pO2 ABG pO2 ABG HCO3 ABG O2 Saturation ABG Base Excess ABG Oxyhemoglobin ABG Sodium ABG Chloride ABG Glucose Oxyhemoglobin Carboxyhemoglobin Sodium Potassium Chloride Carbon Dioxide BUN Creatinine Glucose POC Glucose 274 H 139 H 293 H Hemoglobin A1c Ferritin AST ALT Alkaline Phosphatase Lactate Dehydrogenase C-Reactive Protein Total Protein Albumin Arterial Blood Glucose Coronavirus (PCR)
[2021-05-29] MEDS: HYPROMELLOSE 0.5% OPHTH SOLN 15 ML OU PRN (13:25)
[2021-05-29] MEDS: ACETAMINOPHEN 325 MG TAB PO PRN (22:58)
[2021-05-29] MEDS: ENOXAPARIN 40 MG/0.4 ML INJ SUB-Q SCH (22:58)
[2021-05-29] MEDS: SENNOSIDES 8.6 MG TAB PO SCH (23:00)
[2021-05-30] MEDS: methylPREDNISolone Sod Succinate 125 MG/2 ML INJ IV SCH ×3 (05:51→21:37)
[2021-05-30 06:27] LABS: Basophils % (Auto) 0.2 % (0.0-1.8); Eosinophils % (Auto) 0.1 % (0.0-4.3); Hematocrit 37.3 % (30.3-42.9); Hemoglobin 12.6 gm/dl (10.1-14.3); Lymphocytes # (Auto) 0.6 K/mm3 (1.2-5.4); Mean Corpuscular HGB Conc 34 % (30-34); Mean Corpuscular Volume 93 fl (79-97); Monocytes # (Auto) 0.2 K/mm3 (0.0-0.8); Monocytes % (Auto) 3.1 % (0.0-7.3); Platelet Count 198 K/mm3 (140-440); Red Blood Count 4.02 M/mm3 (3.65-5.03)
[2021-05-30 06:42] LABS: Red Cell Distribution Width 21.3 % (13.2-15.2)
[2021-05-30 08:03] LABS: Blood Urea Nitrogen 19 mg/dL (7-17); Calcium 9.6 mg/dL (8.4-10.2); Hemolysis Index 8
[2021-05-30 08:09] LABS: BUN/Creatinine Ratio 95
[2021-05-30] MEDS: INSULIN LISPRO 100 UNIT/ML SUB-Q SCH ×4 (08:20→22:00)
[2021-05-30] MEDS: MINERAL OIL/PETROLATUM, WHITE OPHTH OINT 3.5 GM OU SCH ×3 (08:37→21:35)
[2021-05-30] MEDS: MOXIFLOXACIN 0.5% OPHTH SOLN 3ML OU SCH ×3 (08:37→21:36)
[2021-05-30] MEDS: CHOLECALCIFEROL (VIT D3) 1000 UNIT (25 mcg) TAB PO SCH (09:14)
[2021-05-30] MEDS: ASCORBIC ACID 500 MG TAB PO SCH (09:14)
[2021-05-30] MEDS: ZINC SULFATE 220 MG CAP PO SCH ×2 (09:14→21:37)
[2021-05-30] MEDS: POLYETHYLENE GLYCOL 3350 17 GM POWDER PO SCH (09:14)
[2021-05-30] MEDS: DOCUSATE SODIUM 100 MG CAP PO SCH ×2 (09:14→21:35)
[2021-05-30] MEDS: FAMOTIDINE 20 MG TAB PO SCH ×2 (09:14→21:37)
--- NOTE | 2021-05-30 09:16 | Progress Note ---
Assessment and Plan Assessment and plan: -Acute hypoxic resp failure due to covid19 -S/p BiPAP, now discontinued tolerated decrease oxygen 20 L. Tolerated well now only on nasal cannula. -Currently on high per nasal cannula at flow rate 40 Discontinue nonrebreather. --Attempt to titrate more aggressively led to patient increasing high flow O2 back to 30%. -See RT notes for titration -Albuterol as needed -Pulmonary hygiene -Pulmonology following CTA chest ordered, patient could not tolerate --covid19 pna; sepsis; -zinc/vitC/D -methylpred 125 mg every 8; wean as appropriate -Infectious disease consulted, -S/p Actemra and remdesivir -Trend temperature and WBC curve -Follow culture data --Oral candidiasis Nystatin solution ordered. Resolving. -- hyponatremia -Last 24 hours -125 -Trend BMP-repeat BMP today. Does not need 1 every day -Replace electrolytes as needed Follow-up labs replace today. -Monitor intake and output -- coagulopathy of covid; on AC -Subcu heparin -Trend CBC-no need for transfusion. -Transfuse for hemoglobin less than 7 -Bilateral lower extremity Doppler ultrasounds negative for DVT ; no CTA or VQ scan to rule out PE -- hyperglycemia; [id number]-Agdif stable at this time. -glargine HS -SSI AC/HS -Avoid hypoglycemia -- risk for protein gisella malnutrition given inc metabolic demand with resp ins ufficiency -TPN earlier in hospital admission due to BiPAP however now patient is tolerating p.o. -Patient on a GI soft diet with aspiration precautions -Nutrition following -Bowel regimen: Colace, senna, MiraLAX -PPI --Anxiety Likely due to severe hypoxia Has shown some signs of improvement over the past 24 hours able to wean oxygen some. -Follows commands and RAY -PRN pain and anxiety meds -Patient is Armenian-speaking but understands Greek Added Ambien for insomnia. Anxiety resolving. add klonipin for anxiety --viral conjunctivitis right eye: Resolved would like drops for her eyes again. States eyes are dry. -Right eye- s/p 5 d course of cipro drops. suspect viral conjunctivitis. l ubricating eye drops. supportive management. Erythema has resolved --Septic shock- resolved -S/p pressors now discontinued -MAP goal 65 -Pressure monitor per protocol Subjective Date of service: 05/29/21 Principal diagnosis: Covid-19 Interval history: Assessment and Plan 50-year-old female past medical history obesity, GERD, hyperlipidemia brought to the hospital due to shortness of breath, fevers, malaise, typical Covid symptoms for approximate 1 week prior to admission and was progressively worse since onset. She is found to have saturations of 86% on presentation. Afebrile since admission with a white count 7.5. Covid test was positive positive along with normal renal function and normal procalcitonin. Chest x-ray: Bilateral pneumonia. Patient initiated on Covid protocol, ID and pulmonary care following 04/17: Patient seen and examined, still uncomfortable with Hypoxic respiratory failure and on oxygen, will continue to steroids therapy, start patient on Remdesivir, ID consulted, Pulmonary consult placed. 04/18: Patient seen and examined, she is currently being changed to High flow NC due to worsening HYPOXIA, will transfer to IMCU, Pulmonary and ID following. Will also give a dose of Lasix today. Monitor Inflammatory markers. 04/19: Patient seen and examined still on high flow due to hypoxia. Appears a bit more comfortable today than yesterday. Cough has decreased in frequency. We will continue high dose Dexameathasone to complete 10 days. continue on Remdesivir 200 mg IV q day x 1 followed by 100 mg IV q day x 4 days -Obtain q48-72h inflammatory markers - ferritin, Ddimer, CRP, LDH Will also give lasix daily for the next 3 days and monitor renal function. Family updated. Continue prone positioning as tolerated 04/20: Patient has some desaturation episodes yesterday was placed on BiPAP. Discussed with ICU team for bed availability for patient to be transferred up. Continue prone position as tolerated. 04/21: Patient remains with profound hypoxia secondary to COVID pneumonia. -Continue steroids -Continue remedesir -S/P Actmera 04/22: Patient remains on steroids and remdesivir. ABG shows persistent hypoxia. We will continue current management additional trial of Lasix for the next few days to see if any improvement. Monitor inflammatory markers as needed. Prognosis is guarded remains on high flow 04/23; patient was treated with remdesivir and Actemra. Continue steroid. Patient's prognosis is guarded. 04/24; patient is on steroid. Patient is currently on BiPAP. Prognosis is guarded. Pulmonary is following. Patient was given Lasix and Ativan. 04/25; continue steroid. Patient was on 40 L of high flow oxygen with saturation was 88%. Pulmonary is following. Prognosis is guarded. Patient was given lasix and ativan. 04/26; patient is on BiPAP and Precedex. Prognosis is guarded. 04/27; patient is on BiPAP and Precedex. Patient will finish steroid today and will start on Solu-Medrol tomorrow. Prognosis is guarded. Blood pressure is better today. Hold Lasix. 04/28 patient is on 100 Fio2 via BIPAP. moderately dyspneic, pulmonary note reviewed, lab results reviewed 04/29 no acute events- see systems review above 04/30 no acute events overnight - on airvo today- TPN started -see systems review above 05-01 no acute events overnight- tolerating airvo- see systems review above 05-02 no acute events overnight; tolerating airvo this AM- see systems review above 05/03: Patient has shown remarkable improvement, weaned down to 3 L and satting 95%. Will attempt to walk test today in anticipation for discharge tomorrow. Discussed with PT team to walk the patient today also. 05/04: Patient appears to have had a decline he was down to 3 L satting 95% with anticipation for discharge today but desatted down to 85% on room air and only 88% on 5 L he is now back at 8 L. I encourage incentive spirometer. While he is on Xarelto and has completed the severe steroids which was subsequently changed to Solu-Medrol I will go ahead and order a CTA to make sure that there is not a failure of Xarelto. We will continue to wean as tolerated discussed with nursing staff at bedside. 05/05/21 Patient is on 40 L of oxygen with 80% FiO2. Patient is encouraged to turn to the side more frequently. Patient is denied any shortness of breath and coughing. No other complaints. Follow the CT scan of the chest. Status post remdesivir and Actemra.Solu-Medrol 40 mg IV every 8 hours. Continue current ma nagement. Pulmonary follow-up. 05/06: Patient remains on high flow nasal cannula but states that she feels slightly better with the help of translation from her cousin Aspen. Patient is still awaiting a bed on the floor. Patient diet is being tolerated now so we will stop TPN will be stopped tonight. 05/07/2021: Patient remains on 40 L/min oxygen at 90% FiO2. Attempt made for CTA chest to rule out pulmonary embolism however patient desatted while at CT. Study was aborted, will reattempt again tomorrow. will follow along with pulphil bertrand. Discussed/updated patient and patient's daughter over phone regarding any active clinical issues. Patient only complaint is oral pain from oral candid iasis noted on exam. Nystatin oral solution ordered. Daughter also voiced concern over patient eye drops which she stated that patient needed to restart from home. However she did not remember name of drops. advised daughter to call our hospital with drop name and dosing and we will restart. 05/08/2021: Started anticoagulation with Lovenox yesterday. Awaiting CTA chest completion. Will attempt to de-escalate oxygen as patient tolerates 05/09/2021: Continues to have high O2 requirements. CTA chest aborted due to patient not being able to tolerate transport to and from scanner. Will follow pu lmonology recommendations 05/10/2021: Steroids increased yesterday to 125 mg every 8 hour. Continuing full dose anticoagulation. Respiratory status still remains challenging as it is difficult to wean patient off of hifnc. Minimal improvement compared to last few days. Plan to prone patient today. Otherwise: Some improvement in eye symptoms compared to yesterday. Will order more lubricating eye drops 05/11/2021: Still requires high flow nasal cannula, FiO2 de-escalated to 85%.. Encourage continued proning, patient care team aware. Continue with steroids, anticoagulation, antibiotics. 05/12/2021: High flow nasal cannula remains at flow rate 35 L/min and FiO2 of 85%. Patient appears more comfortable today. Started insulin regimen due to hyperglycemia likely multifactorial in the setting of underlying diabetes and high-dose steroids. Continue to encourage patient to prone. Discussed with pulmonology regarding patient underlying anxiety. We both agreed that low-dose BuSpar might be beneficial for the patient. 05/13/2020: hypoxic resp distress overnight. cpap ordered. Current settings on encounter 30/04 at 100% FIO2. Advised care (RN, RT, PT) team to continue to aggressively work with patient as far as proning. Patient can sit at side of bed and rest on bedside tray w/ pillow in "Rodin's thinker pose". continue high dose steroids, PRN ativan for anxiety, Buspar noted in pulm recs. 05/14/21: Patient remains on 100% O2 with high flow. Follow inflammatory markers, wean FiO2 as tolerated, guarded prognosis 05/15: Patient on 40 L high flow O2 today-requiring nonrebreather intermittently, continue to follow inflammatory markers and wean off O2 as tolerated, guarded prognosis. 05/16:-Remains on high flow O2 along with nonrebreather, continue to follow inflammatory markers and wean off O2 as tolerated, pulmonary and ID following. Guarded prognosis, patient requiring higher concentration of O2 and unable to wean off. 05/17: Persistently recurring higher concentration O2. Patient on both high flow oxygen and nonrebreather. Poor prognosis, continue to follow inflammatory markers. ID and pulmonary care following. Updated family. 05/18: Patient remains on nonrebreather and high flow O2, Prone if possible. Wean FiO2 for sats >88%. Prognosis is very very guarded. Follow inflammatory markers. 05/19: Wean FiO2 for sats >88%. Patient remains on nonrebreather and high flow O2, Prone if possible. Follow inflammatory markers. Prognosis is very very guarded. 05/20: Patient remains on high flow O2 along with nonrebreather. Guarded prognosis. Wean off O2 as tolerated. Pulmonary and ID following 05/20 patient remains on high flow O2 with nonrebreather. Was not able to tolerate weaning today. Prognosis remains poor. 05/23. Patient remains on high flow O2 with nasal cannula at this time. Did not try to wean patient at all today. Patient was talking on the phone with liquid center assembler and myself in full sentences without hypoxemia. Complained of some neck stiffness and soreness from laying in bed too long. All questions and concerns answered to patient's satisfaction 05/24/2021. Patient was able to decrease from 30 L to 25 L today. Tolerated decrease without any difficulty. Patient feels well today. Better today. Tolerated physical therapy today. Spoke with family member through translation. Did not need much because of Armenian and language. 05/25/2021. No new changes patient tolerated decrease in high flow O2 from 30 to 25 L. Will decrease to 20 L today. Patient actively doing physical therapy today tolerated well. All questions and concerns answered through liquid center assembler. 05/26/2021. Patient tolerated change from 30 high flow O2 to 25 L high flow O2. Will decrease to 20 today. Hospital course complicated by complaints of ins omnia. 05/27/2021. No new concerns today. Patient tolerated decrease in O2 from 25-20. Continue to wean as tolerated. Insomnia better with Ambien. Patient was able to stop nonrebreather yesterday and now only on nasal cannula. 05/28/2021. No significant improvement over p.m. still able to wean to 25%. Did not tolerate 20% yesterday we'll attempt to wean again today. Steroids have been tapered. Encourage proning. 05/29/2021. Encourage proning again in Armenian. Patient up to 35% high flow O2 nasal cannula. Did not tolerate wean over p.m. Overall prognosis remains guarded. 05/30/2021. Patient remains on 35L high flow with FiO2 of 75%. Overall prognosis remains guarded. Continue to encourage proning. Pulmonary following. History Interval history: No new issues overnight Hospitalist Physical - Constitutional Vitals: Temp Pulse Resp BP Pulse Ox 98.2 F 75 20 108/70 95 05/29/21 22:46 05/29/21 22:46 05/29/21 22:46 05/29/21 22:46 05/30/21 03:19 General appearance: Present: no acute distress, well-nourished - EENT Eyes: Present: PERRL, EOM intact ENT: hearing intact, clear oral mucosa, dentition normal - Neck Neck: Present: supple, normal ROM - Respiratory Respiratory effort: normal Respiratory: bilateral: CTA - Cardiovascular Rhythm: regular Heart Sounds: Present: S1 & S2. Absent: gallop, rub - Extremities Extremities: no ischemia, No edema, Full ROM - Abdominal General gastrointestinal: soft, non-tender, non-distended, normal bowel sounds - Integumentary Integumentary: Present: clear, warm, dry - Neurologic Neurologic: CNII-XII intact, moves all extremities Results - Labs CBC & Chem 7: 05/30/21 05:55 05/30/21 05:55 Labs: Laboratory Last Values WBC 7.1 K/mm3 (4.5-11.0) 05/30/21 05:55 RBC 4.02 M/mm3 (3.65-5.03) 05/30/21 05:55 Hgb 12.6 gm/dl (10.1-14.3) 05/30/21 05:55 Hct 37.3 % (30.3-42.9) 05/30/21 05:55 MCV 93 fl (79-97) 05/30/21 05:55 MCH 31 pg (28-32) 05/30/21 05:55 MCHC 34 % (30-34) 05/30/21 05:55 RDW 21.3 % (13.2-15.2) H 05/30/21 05:55 Plt Count 198 K/mm3 (140-440) 05/30/21 05:55 Lymph % (Auto) 8.0 % (13.4-35.0) L 05/30/21 05:55 [place] % (Auto) 3.1 % (0.0-7.3) 05/30/21 05:55 Eos % (Auto) 0.1 % (0.0-4.3) 05/30/21 05:55 Baso % (Auto) 0.2 % (0.0-1.8) 05/30/21 05:55 Lymph # (Auto) 0.6 K/mm3 (1.2-5.4) L 05/30/21 05:55 [place] # (Auto) 0.2 K/mm3 (0.0-0.8) 05/30/21 05:55 Eos # (Auto) 0.0 K/mm3 (0.0-0.4) 05/30/21 05:55 Baso # (Auto) 0.0 K/mm3 (0.0-0.1) 05/30/21 05:55 Add Manual Diff Complete 05/12/21 04:05 Total Counted 100 05/12/21 04:05 Seg Neutrophils % 88.6 % (40.0-70.0) H 05/30/21 05:55 Seg Neuts % (Manual) 94.0 % (40.0-70.0) H 05/12/21 04:05 Band Neutrophils % 1.0 % 05/12/21 04:05 Lymphocytes % (Manual) 4.0 % (13.4-35.0) L 05/12/21 04:05 Monocytes % (Manual) 1.0 % (0.0-7.3) 05/12/21 04:05 Nucleated RBC % Not Reportable 05/12/21 04:05 Seg Neutrophils # 6.3 K/mm3 (1.8-7.7) 05/30/21 05:55 Seg Neutrophils # Man 6.4 K/mm3 (1.8-7.7) 05/12/21 04:05 Band Neutrophils # 0.1 K/mm3 05/12/21 04:05 Lymphocytes # (Manual) 0.3 K/mm3 (1.2-5.4) L 05/12/21 04:05 Abs React Lymphs (Man) 0.0 K/mm3 05/12/21 04:05 Monocytes # (Manual) 0.1 K/mm3 (0.0-0.8) 05/12/21 04:05 Eosinophils # (Manual) 0.0 K/mm3 (0.0-0.4) 05/12/21 04:05 Basophils # (Manual) 0.0 K/mm3 (0.0-0.1) 05/12/21 04:05 Metamyelocytes # 0.0 K/mm3 05/12/21 04:05 Myelocytes # 0.0 K/mm3 05/12/21 04:05 Promyelocytes # 0.0 K/mm3 05/12/21 04:05 Blast Cells # 0.0 K/mm3 05/12/21 04:05 WBC Morphology Not Reportable 05/12/21 04:05 Hypersegmented Neuts Not Reportable 05/12/21 04:05 Hyposegmented Neuts Not Reportable 05/12/21 04:05 Hypogranular Neuts Not Reportable 05/12/21 04:05 Smudge Cells Not Reportable 05/12/21 04:05 Toxic Granulation Not Reportable 05/12/21 04:05 Toxic Vacuolation Not Reportable 05/12/21 04:05 Dohle Bodies Not Reportable 05/12/21 04:05 Pelger-Huet Anomaly Not Reportable 05/12/21 04:05 Janelle Rods Not Reportable 05/12/21 04:05 Platelet Estimate Consistent w auto 05/12/21 04:05 Clumped Platelets Not Reportable 05/12/21 04:05 Plt Clumps, EDTA Not Reportable 05/12/21 04:05 Large Platelets Not Reportable 05/12/21 04:05 Giant Platelets Not Reportable 05/12/21 04:05 Platelet Satelliting Not Reportable 05/12/21 04:05 Plt Morphology Comment Not Reportable 05/12/21 04:05 RBC Morphology Normal 05/12/21 04:05 Dimorphic RBCs Not Reportable 05/12/21 04:05 Polychromasia Not Reportable 05/12/21 04:05 Hypochromasia Not Reportable 05/12/21 04:05 Poikilocytosis Not Reportable 05/12/21 04:05 Anisocytosis Not Reportable 05/12/21 04:05 Microcytosis Not Reportable 05/12/21 04:05 Macrocytosis Not Reportable 05/12/21 04:05 Spherocytes Not Reportable 05/12/21 04:05 Pappenheimer Bodies Not Reportable 05/12/21 04:05 Sickle Cells Not Reportable 05/12/21 04:05 Target Cells Not Reportable 05/12/21 04:05 Tear Drop Cells Not Reportable 05/12/21 04:05 Ovalocytes Not Reportable 05/12/21 04:05 Helmet Cells Not Reportable 05/12/21 04:05 Ahuja-High [place]man[place] Bodies Not Reportable 05/12/21 04:05 [place] Rings Not Reportable 05/12/21 04:05 Rcow Cells Not Reportable 05/12/21 04:05 Bite Cells Not Reportable 05/12/21 04:05 Crenated Cell Not Reportable 05/12/21 04:05 Elliptocytes Not Reportable 05/12/21 04:05 Acanthocytes (Spur) Not Reportable 05/12/21 04:05 Rouleaux Not Reportable 05/12/21 04:05 Hemoglobin C Crystals Not Reportable 05/12/21 04:05 Schistocytes Not Reportable 05/12/21 04:05 Malaria parasites Not Reportable 05/12/21 04:05 Justin Bodies Not Reportable 05/12/21 04:05 Hem Pathologist Commnt No 05/12/21 04:05 D-Dimer 910.38 ng/mlDDU (0-234) H 05/23/21 09:50 ABG pH 7.403 pH Units (7.350-7.450) 05/14/21 02:23 POC ABG pCO2 45.4 mmHg (32.0-48.0) 05/03/21 04:49 ABG pCO2 50.2 mm Hg 05/14/21 02:23 POC ABG pO2 65.3 mmHg (83-108) L 05/03/21 04:49 ABG pO2 130.3 mm Hg (80.0-90.0) H 05/14/21 02:23 POC ABG HCO3 18.5 05/03/21 04:49 ABG HCO3 30.6 mmol/L (20.0-26.0) H 05/14/21 02:23 ABG O2 Saturation 98.5 % (95.0-99.0) 05/14/21 02:23 ABG O2 Content 17.9 (0.0-44) 05/14/21 02:23 POC ABG Base Excess -8.9 05/03/21 04:49 ABG Base Excess 4.9 mmol/L (-2.0-3.0) H 05/14/21 02:23 ABG Hemoglobin 13.0 gm/dl (12.0-16.0) 05/14/21 02:23 ABG Oxyhemoglobin 87.8 (94-98) L 05/03/21 04:49 ABG Carboxyhemoglobin 1.4 % (0.0-5.0) 05/14/21 02:23 ABG Methemoglobin 0.6 % (0.0-1.5) 05/14/21 02:23 ABG Sodium 133.0 mmol/L (136.0-145.0) L 05/03/21 04:49 ABG Potassium 3.9 mmol/L (3.40-4.50) 05/03/21 04:49 ABG Chloride 97.0 mmol/L (98-107) L 05/03/21 04:49 ABG Glucose 403 mg/dL (65-95) H 05/03/21 04:49 Oxyhemoglobin 96.5 % (95.0-99.0) 05/14/21 02:23 Carboxyhemoglobin 0.6 (0.5-1.5) 05/03/21 04:49 FiO2 90 % 05/14/21 02:23 FiO2 % 100.0 05/03/21 04:49 Sodium 142 mmol/L (137-145) 05/30/21 05:55 Potassium 4.5 mmol/L (3.6-5.0) 05/30/21 05:55 Chloride 101.6 mmol/L (98-107) 05/30/21 05:55 Carbon Dioxide 25 mmol/L (22-30) 05/30/21 05:55 Anion Gap 20 mmol/L 05/30/21 05:55 BUN 19 mg/dL (7-17) H 05/30/21 05:55 Creatinine 0.2 mg/dL (0.6-1.2) L 05/30/21 05:55 Estimated GFR > 60 ml/min 05/30/21 05:55 BUN/Creatinine Ratio 95 % 05/30/21 05:55 Glucose 209 mg/dL (65-100) H 05/30/21 05:55 POC Glucose 157 mg/dL (70-105) H 05/30/21 08:04 Hemoglobin A1c 8.5 % (4-6) H 04/18/21 07:36 Calcium 9.6 mg/dL (8.4-10.2) 05/30/21 05:55 Phosphorus 3.60 mg/dL (2.5-4.5) 05/06/21 05:00 Magnesium 2.00 mg/dL (1.7-2.3) 05/06/21 05:00 Ferritin 244.9 ng/mL (10.0-200.0) H 05/23/21 09:50 Total Bilirubin 0.30 mg/dL (0.1-1.2) 05/14/21 07:13 AST 29 units/L (5-40) 05/14/21 07:13 ALT 63 units/L (7-56) H 05/14/21 07:13 Alkaline Phosphatase 72 units/L (35-129) 05/14/21 07:13 Lactate Dehydrogenase 584 units/L (91-180) H 05/23/21 09:50 C-Reactive Protein 0.10 mg/dL (0.00-1.30) 05/23/21 09:50 Total Protein 6.1 g/dL (6.3-8.2) L 05/14/21 07:13 Albumin 3.0 g/dL (3.9-5) L 05/14/21 07:13 Albumin/Globulin Ratio 1.0 % 05/14/21 07:13 Triglycerides < 9 mg/dL (2-149) 05/03/21 04:30 Procalcitonin < 0.05 ng/mL (<0.15) 05/23/21 09:50 Arterial Blood Glucose 403 mg/dL (65-95) H 05/03/21 04:49 Arterial Blood Ionized Calcium 4.9 mg/dL (4.6-5.3) 05/03/21 04:49 Coronavirus (PCR) Negative (Negative) 05/21/21 09:00 Amos/IV: Voiding Method Bedpan Active Medications - Current Medications Current Medications: Generic Name Dose Route Start Last Admin Trade Name Freq PRN Reason Stop Dose Admin Acetaminophen 650 mg 04/16/21 14:00 05/29/21 22:58 Acetaminophen 325 Mg Tab PO 650 mg Q4H PRN Administration Pain MILD(1-3)/Fever >100.5/[place] Albuterol 2.5 mg 04/16/21 13:39 04/21/21 20:39 Albuterol 2.5 Mg/3 Ml Nebu IH 2.5 mg Q4HRT PRN Administration Shortness Of Breath Artificial Tears 2 drops 04/28/21 18:15 05/29/21 13:25 Hypromellose 0.5% Ophth Soln 15 Ml OU 2 drops Q4H PRN Administration Dry Eye(s) Ascorbic Acid 500 mg 04/24/21 10:00 05/29/21 10:33 Ascorbic Acid 500 Mg Tab PO 500 mg QDAY TUTU Administration Cholecalciferol 1,000 unit 04/17/21 10:00 05/29/21 10:33 Cholecalciferol (Vit D3) 1000 Unit (25 Mcg) Tab PO 1,000 unit QDAY TUTU Administration Clonazepam 1 mg 05/29/21 08:06 Clonazepam 0.5 Mg Tab PO Q8H PRN Anxiety Dextrose 50 ml 04/18/21 07:30 04/28/21 09:59 Dextrose 50% In Water (25gm) 50 Ml Syringe IV 50 ml Q30MIN PRN Administration Hypoglycemia Protocol Docusate Sodium 100 mg 04/30/21 10:00 05/29/21 23:00 Docusate Sodium 100 Mg Cap PO 100 mg BID TUTU Administration Enoxaparin Sodium 40 mg 05/19/21 22:00 05/29/21 22:58 Enoxaparin 40 Mg/0.4 Ml Inj SUB-Q 40 mg QDAY@2200 [facility] Administration Protocol Famotidine 20 mg 05/07/21 22:00 05/29/21 23:00 Famotidine 20 Mg Tab PO 20 mg BID TUTU Administration Insulin Glargine 25 units 05/04/21 11:05 05/29/21 10:37 Insulin Glargine 100 Units/Ml SUB-Q 25 units DAILY TUTU Administration Insulin Glargine 10 units 05/06/21 22:00 05/29/21 23:00 Insulin Glargine 100 Units/Ml SUB-Q 10 units QHS [facility] Administration Insulin Human Lispro 0 unit 05/18/21 12:00 05/30/21 08:20 Insulin Lispro 100 Unit/Ml SUB-Q 1 unit ACHS [facility] Administration Protocol Lorazepam 1 mg 05/25/21 14:40 05/26/21 12:27 Lorazepam 2 Mg/Ml Vial IV 1 mg Q6H PRN Administration Agitation Methylprednisolone Sodium Succinate 60 mg 05/26/21 14:00 05/30/21 05:51 Methylprednisolone Sod Succinate 125 Mg/2 Ml Inj IV 60 mg Q8HR [facility] Administration Moxifloxacin HCl 1 drops 05/24/21 14:00 05/30/21 08:37 Moxifloxacin 0.5% Ophth Soln 3ml OU 05/31/21 06:01 Not Given Q8HR [facility] Multi-Ingred Cream/Lotion/Oil/Oint 1 applic 05/10/21 14:00 05/30/21 08:37 Mineral Oil/Petrolatum, White Ophth Oint 3.5 Gm OU Not Given Q8HR [facility] Ondansetron HCl 4 mg 04/16/21 14:00 05/14/21 14:35 Ondansetron 4 Mg/2 Ml Inj IV 4 mg Q8H PRN Administration Nausea And Vomiting Polyethylene Glycol 17 gm 05/02/21 16:00 05/29/21 10:33 Polyethylene Glycol 3350 17 Gm Powder PO Not Given QDAY [facility] Senna 17.2 mg 05/02/21 22:00 05/29/21 23:00 Sennosides 8.6 Mg Tab PO 17.2 mg QHS [facility] Administration Sodium Chloride 10 ml 04/16/21 22:00 05/29/21 23:01 Sodium Chloride 0.9% 10 Ml Flush Syringe IV 10 ml BID TUTU Administration Sodium Chloride 10 ml 04/16/21 13:39 05/22/21 15:21 Sodium Chloride 0.9% 10 Ml Flush Syringe IV 10 ml PRN PRN Administration LINE FLUSH Zinc Sulfate 220 mg 04/16/21 22:00 05/29/21 23:00 Zinc Sulfate 220 Mg Cap PO 220 mg BID TUTU Administration Zolpidem Tartrate 10 mg 05/26/21 08:56 05/28/21 22:56 Zolpidem 5 Mg Tab PO 10 mg QHS PRN Administration Insomnia Nutrition/Malnutrition Assess - Dietary Evaluation Nutrition/Malnutrition Findings: Nutrition Notes Start: 04/23/21 07:41 Freq: Status: Active Protocol: Document 05/28/21 11:56 (Rec: 05/28/21 11:58 [email or web address]) Nutrition Notes Initial or Follow up Reassessment Current Diagnosis Respiratory Failure Other Pertinent Diagnosis oral thrush, COVID-19 pneu Current Diet GI soft Labs/Tests POC BG 115-318 Pertinent Medications Solu Medrol Miralax Height 4 ft 11.84 in Weight 63.4 kg [place] Body Weight (kg) 45.09 BMI 27.4 Weight Status Overweight Subjective/Other Information Pt continues to eat 75-100% of meals. Percent of energy/protein needs met: 100%/93% Burn Absent Trauma Absent Current % PO Good (75-100%) Minimum of two criteria Yes Energy Intake (severe) < or equal to 50% Estimated Energy Requirement > or equal to 5 days Interpretation of Weight Loss (severe) >5% in 1 month #2 Nutrition Diagnosis Malnutrition Diagnosis Progress(for reassessment Continues documentation) #1 Nutrition Diagnosis Inadequate oral intake As Evidenced by Signs and Symptoms pt continues to meet 100%/93% of kcal/protein needs Diagnosis Progress(for reassessment Resolved documentation) Is patient on ventilator? No Is Patient Ambulatory and/or Out of Bed No [facility] 1417.464 Kcal/Kg value to use for calculation 25 Approximate Energy Requirements Using 1585 kcal/Kg Calculation Used for Recommendations [facility] Additional Notes Pro needs 1.2-2g/k-137g/ day Fluid needs 1ml/kcal Nutrition Intervention Change Diet Order: contiue Add Supplement/Snack (indicate name/kcal Glucerna BID /protein ) Provides kCal: 440 Provides Protein (gm) 20 Goal #1 Meet at least 75% of protein and energy needs Anticipated Discharge Needs: Consistent CHO Follow-Up By: 06/04/21 Additional Comments F/u: stable intakes
[2021-05-30] MEDS: INSULIN GLARGINE 100 UNITS/ML SUB-Q SCH ×2 (09:54→23:45)
[2021-05-30] MEDS: ONDANSETRON 4 MG/2 ML INJ IV PRN (10:07)
[2021-05-30] MEDS: ENOXAPARIN 40 MG/0.4 ML INJ SUB-Q SCH (21:36)
[2021-05-30] MEDS: ACETAMINOPHEN 325 MG TAB PO PRN (21:44)
[2021-05-30] MEDS: SENNOSIDES 8.6 MG TAB PO SCH (22:00)
[2021-05-31] MEDS: methylPREDNISolone Sod Succinate 125 MG/2 ML INJ IV SCH ×3 (05:58→21:58)
[2021-05-31] MEDS: INSULIN LISPRO 100 UNIT/ML SUB-Q SCH ×4 (08:22→21:56)
--- NOTE | 2021-05-31 08:26 | Progress Note ---
Assessment and Plan Assessment and plan: -Acute hypoxic resp failure due to covid19 -S/p BiPAP, now discontinued tolerated decrease oxygen 20 L. Tolerated well now only on nasal cannula. -Currently on high per nasal cannula at flow rate 40 Discontinue nonrebreather. --Attempt to titrate more aggressively led to patient increasing high flow O2 back to 30%. -See RT notes for titration -Albuterol as needed -Pulmonary hygiene -Pulmonology following CTA chest ordered, patient could not tolerate --covid19 pna; sepsis; -zinc/vitC/D -methylpred 125 mg every 8; wean as appropriate -Infectious disease consulted, -S/p Actemra and remdesivir -Trend temperature and WBC curve -Follow culture data --Oral candidiasis Nystatin solution ordered. Resolving. -- hyponatremia -Last 24 hours -125 -Trend BMP-repeat BMP today. Does not need 1 every day -Replace electrolytes as needed Follow-up labs replace today. -Monitor intake and output -- coagulopathy of covid; on AC -Subcu heparin -Trend CBC-no need for transfusion. -Transfuse for hemoglobin less than 7 -Bilateral lower extremity Doppler ultrasounds negative for DVT ; no CTA or VQ scan to rule out PE -- hyperglycemia; [id number] stable at this time. -glargine HS -SSI AC/HS -Avoid hypoglycemia -- risk for protein gisella malnutrition given inc metabolic demand with resp ins ufficiency -TPN earlier in hospital admission due to BiPAP however now patient is tolerating p.o. -Patient on a GI soft diet with aspiration precautions -Nutrition following -Bowel regimen: Colace, senna, MiraLAX -PPI --Anxiety Likely due to severe hypoxia Has shown some signs of improvement over the past 24 hours able to wean oxygen some. -Follows commands and RAY -PRN pain and anxiety meds -Patient is [place]-speaking but understands [place] Added Ambien for insomnia. Anxiety resolving. add klonipin for anxiety --viral conjunctivitis right eye: Resolved would like drops for her eyes again. States eyes are dry. -Right eye- s/p 5 d course of cipro drops. suspect viral conjunctivitis. l ubricating eye drops. supportive management. Erythema has resolved --Septic shock- resolved -S/p pressors now discontinued -MAP goal 65 -Pressure monitor per protocol Subjective Date of service: 05/29/21 Principal diagnosis: Covid-19 Interval history: Assessment and Plan 50-year-old female past medical history obesity, GERD, hyperlipidemia brought to the hospital due to shortness of breath, fevers, malaise, typical Covid symptoms for approximate 1 week prior to admission and was progressively worse since onset. She is found to have saturations of 86% on presentation. Afebrile since admission with a white count 7.5. Covid test was positive positive along with normal renal function and normal procalcitonin. Chest x-ray: Bilateral pneumonia. Patient initiated on Covid protocol, ID and pulmonary care following 04/17: Patient seen and examined, still uncomfortable with Hypoxic respiratory failure and on oxygen, will continue to steroids therapy, start patient on Remdesivir, ID consulted, Pulmonary consult placed. 04/18: Patient seen and examined, she is currently being changed to High flow NC due to worsening HYPOXIA, will transfer to IMCU, Pulmonary and ID following. Will also give a dose of Lasix today. Monitor Inflammatory markers. 04/19: Patient seen and examined still on high flow due to hypoxia. Appears a bit more comfortable today than yesterday. Cough has decreased in frequency. We will continue high dose Dexameathasone to complete 10 days. continue on Remdesivir 200 mg IV q day x 1 followed by 100 mg IV q day x 4 days -Obtain q48-72h inflammatory markers - ferritin, Ddimer, CRP, LDH Will also give lasix daily for the next 3 days and monitor renal function. Family updated. Continue prone positioning as tolerated 04/20: Patient has some desaturation episodes yesterday was placed on BiPAP. Discussed with ICU team for bed availability for patient to be transferred up. Continue prone position as tolerated. 04/21: Patient remains with profound hypoxia secondary to COVID pneumonia. -Continue steroids -Continue remedesir -S/P Actmera 04/22: Patient remains on steroids and remdesivir. ABG shows persistent hypoxia. We will continue current management additional trial of Lasix for the next few days to see if any improvement. Monitor inflammatory markers as needed. Prognosis is guarded remains on high flow 04/23; patient was treated with remdesivir and Actemra. Continue steroid. Patient's prognosis is guarded. 04/24; patient is on steroid. Patient is currently on BiPAP. Prognosis is guarded. Pulmonary is following. Patient was given Lasix and Ativan. 04/25; continue steroid. Patient was on 40 L of high flow oxygen with saturation was 88%. Pulmonary is following. Prognosis is guarded. Patient was given lasix and ativan. 04/26; patient is on BiPAP and Precedex. Prognosis is guarded. 04/27; patient is on BiPAP and Precedex. Patient will finish steroid today and will start on Solu-Medrol tomorrow. Prognosis is guarded. Blood pressure is better today. Hold Lasix. 04/28 patient is on 100 Fio2 via BIPAP. moderately dyspneic, pulmonary note reviewed, lab results reviewed 04/29 no acute events- see systems review above 04/30 no acute events overnight - on airvo today- TPN started -see systems review above 05-01 no acute events overnight- tolerating airvo- see systems review above 05-02 no acute events overnight; tolerating airvo this AM- see systems review above 05/03: Patient has shown remarkable improvement, weaned down to 3 L and satting 95%. Will attempt to walk test today in anticipation for discharge tomorrow. Discussed with PT team to walk the patient today also. 05/04: Patient appears to have had a decline he was down to 3 L satting 95% with anticipation for discharge today but desatted down to 85% on room air and only 88% on 5 L he is now back at 8 L. I encourage incentive spirometer. While he is on Xarelto and has completed the severe steroids which was subsequently changed to Solu-Medrol I will go ahead and order a CTA to make sure that there is not a failure of Xarelto. We will continue to wean as tolerated discussed with nursing staff at bedside. 05/05/21 Patient is on 40 L of oxygen with 80% FiO2. Patient is encouraged to turn to the side more frequently. Patient is denied any shortness of breath and coughing. No other complaints. Follow the CT scan of the chest. Status post remdesivir and Actemra.Solu-Medrol 40 mg IV every 8 hours. Continue current ma nagement. Pulmonary follow-up. 05/06: Patient remains on high flow nasal cannula but states that she feels slightly better with the help of translation from her cousin [place]. Patient is still awaiting a bed on the floor. Patient diet is being tolerated now so we will stop TPN will be stopped tonight. 05/07/2021: Patient remains on 40 L/min oxygen at 90% FiO2. Attempt made for CTA chest to rule out pulmonary embolism however patient desatted while at CT. Study was aborted, will reattempt again tomorrow. will follow along with pulphil bertrand. Discussed/updated patient and patient's daughter over phone regarding any active clinical issues. Patient only complaint is oral pain from oral candid iasis noted on exam. Nystatin oral solution ordered. Daughter also voiced concern over patient eye drops which she stated that patient needed to restart from home. However she did not remember name of drops. advised daughter to call our hospital with drop name and dosing and we will restart. 05/08/2021: Started anticoagulation with Lovenox yesterday. Awaiting CTA chest completion. Will attempt to de-escalate oxygen as patient tolerates 05/09/2021: Continues to have high O2 requirements. CTA chest aborted due to patient not being able to tolerate transport to and from scanner. Will follow pu lmonology recommendations 05/10/2021: Steroids increased yesterday to 125 mg every 8 hour. Continuing full dose anticoagulation. Respiratory status still remains challenging as it is difficult to wean patient off of hifnc. Minimal improvement compared to last few days. Plan to prone patient today. Otherwise: Some improvement in eye symptoms compared to yesterday. Will order more lubricating eye drops 05/11/2021: Still requires high flow nasal cannula, FiO2 de-escalated to 85%.. Encourage continued proning, patient care team aware. Continue with steroids, anticoagulation, antibiotics. 05/12/2021: High flow nasal cannula remains at flow rate 35 L/min and FiO2 of 85%. Patient appears more comfortable today. Started insulin regimen due to hyperglycemia likely multifactorial in the setting of underlying diabetes and high-dose steroids. Continue to encourage patient to prone. Discussed with pulmonology regarding patient underlying anxiety. We both agreed that low-dose BuSpar might be beneficial for the patient. 05/13/2020: hypoxic resp distress overnight. cpap ordered. Current settings on encounter 30/04 at 100% FIO2. Advised care (RN, RT, PT) team to continue to aggressively work with patient as far as proning. Patient can sit at side of bed and rest on bedside tray w/ pillow in "Rodin's thinker pose". continue high dose steroids, PRN ativan for anxiety, Buspar noted in pulm recs. 05/14/21: Patient remains on 100% O2 with high flow. Follow inflammatory markers, wean FiO2 as tolerated, guarded prognosis 05/15: Patient on 40 L high flow O2 today-requiring nonrebreather intermittently, continue to follow inflammatory markers and wean off O2 as tolerated, guarded prognosis. 05/16:-Remains on high flow O2 along with nonrebreather, continue to follow inflammatory markers and wean off O2 as tolerated, pulmonary and ID following. Guarded prognosis, patient requiring higher concentration of O2 and unable to wean off. 05/17: Persistently recurring higher concentration O2. Patient on both high flow oxygen and nonrebreather. Poor prognosis, continue to follow inflammatory markers. ID and pulmonary care following. Updated family. 05/18: Patient remains on nonrebreather and high flow O2, Prone if possible. Wean FiO2 for sats >88%. Prognosis is very very guarded. Follow inflammatory markers. 05/19: Wean FiO2 for sats >88%. Patient remains on nonrebreather and high flow O2, Prone if possible. Follow inflammatory markers. Prognosis is very very guarded. 05/20: Patient remains on high flow O2 along with nonrebreather. Guarded prognosis. Wean off O2 as tolerated. Pulmonary and ID following 05/20 patient remains on high flow O2 with nonrebreather. Was not able to tolerate weaning today. Prognosis remains poor. 05/23. Patient remains on high flow O2 with nasal cannula at this time. Did not try to wean patient at all today. Patient was talking on the phone with application project leader and myself in full sentences without hypoxemia. Complained of some neck stiffness and soreness from laying in bed too long. All questions and concerns answered to patient's satisfaction 05/24/2021. Patient was able to decrease from 30 L to 25 L today. Tolerated decrease without any difficulty. Patient feels well today. Better today. Tolerated physical therapy today. Spoke with family member through translation. Did not need much because of [place] and language. 05/25/2021. No new changes patient tolerated decrease in high flow O2 from 30 to 25 L. Will decrease to 20 L today. Patient actively doing physical therapy today tolerated well. All questions and concerns answered through application project leader. 05/26/2021. Patient tolerated change from 30 high flow O2 to 25 L high flow O2. Will decrease to 20 today. Hospital course complicated by complaints of ins omnia. 05/27/2021. No new concerns today. Patient tolerated decrease in O2 from 25-20. Continue to wean as tolerated. Insomnia better with Ambien. Patient was able to stop nonrebreather yesterday and now only on nasal cannula. 05/28/2021. No significant improvement over p.m. still able to wean to 25%. Did not tolerate 20% yesterday we'll attempt to wean again today. Steroids have been tapered. Encourage proning. 05/29/2021. Encourage proning again in [place]. Patient up to 35% high flow O2 nasal cannula. Did not tolerate wean over p.m. Overall prognosis remains guarded. 05/30/2021. Patient remains on 35L high flow with FiO2 of 75%. Overall prognosis remains guarded. Continue to encourage proning. Pulmonary following. 05/31/2021. Patient remains on HFNC 35 L with FiO2 now 85%. Overall prognosis remains guarded. Continue to encourage proning. Pulmonary following. Continue steroids 60 mg IV every 8 hours. Continue long-acting insulin of Lantus and SSRI. History Interval history: No new issues overnight Hospitalist Physical - Constitutional Vitals: Temp Pulse Resp BP Pulse Ox 98.4 F 74 20 114/65 97 05/31/21 04:22 05/31/21 04:22 05/31/21 04:22 05/31/21 04:22 05/31/21 04:22 General appearance: Present: no acute distress, well-nourished - EENT Eyes: Present: PERRL, EOM intact ENT: hearing intact, clear oral mucosa, dentition normal - Neck Neck: Present: supple, normal ROM - Respiratory Respiratory effort: normal Respiratory: bilateral: CTA - Cardiovascular Rhythm: regular Heart Sounds: Present: S1 & S2. Absent: gallop, rub - Extremities Extremities: no ischemia, No edema, Full ROM - Abdominal General gastrointestinal: soft, non-tender, non-distended, normal bowel sounds - Integumentary Integumentary: Present: clear, warm, dry - Neurologic Neurologic: CNII-XII intact, moves all extremities Results - Labs CBC & Chem 7: 05/30/21 05:55 05/30/21 05:55 Labs: Laboratory Last Values WBC 7.1 K/mm3 (4.5-11.0) 05/30/21 05:55 RBC 4.02 M/mm3 (3.65-5.03) 05/30/21 05:55 Hgb 12.6 gm/dl (10.1-14.3) 05/30/21 05:55 Hct 37.3 % (30.3-42.9) 05/30/21 05:55 MCV 93 fl (79-97) 05/30/21 05:55 MCH 31 pg (28-32) 05/30/21 05:55 MCHC 34 % (30-34) 05/30/21 05:55 RDW 21.3 % (13.2-15.2) H 05/30/21 05:55 Plt Count 198 K/mm3 (140-440) 05/30/21 05:55 Lymph % (Auto) 8.0 % (13.4-35.0) L 05/30/21 05:55 [place] % (Auto) 3.1 % (0.0-7.3) 05/30/21 05:55 Eos % (Auto) 0.1 % (0.0-4.3) 05/30/21 05:55 Baso % (Auto) 0.2 % (0.0-1.8) 05/30/21 05:55 Lymph # (Auto) 0.6 K/mm3 (1.2-5.4) L 05/30/21 05:55 [place] # (Auto) 0.2 K/mm3 (0.0-0.8) 05/30/21 05:55 Eos # (Auto) 0.0 K/mm3 (0.0-0.4) 05/30/21 05:55 Baso # (Auto) 0.0 K/mm3 (0.0-0.1) 05/30/21 05:55 Add Manual Diff Complete 05/12/21 04:05 Total Counted 100 05/12/21 04:05 Seg Neutrophils % 88.6 % (40.0-70.0) H 05/30/21 05:55 Seg Neuts % (Manual) 94.0 % (40.0-70.0) H 05/12/21 04:05 Band Neutrophils % 1.0 % 05/12/21 04:05 Lymphocytes % (Manual) 4.0 % (13.4-35.0) L 05/12/21 04:05 Monocytes % (Manual) 1.0 % (0.0-7.3) 05/12/21 04:05 Nucleated RBC % Not Reportable 05/12/21 04:05 Seg Neutrophils # 6.3 K/mm3 (1.8-7.7) 05/30/21 05:55 Seg Neutrophils # Man 6.4 K/mm3 (1.8-7.7) 05/12/21 04:05 Band Neutrophils # 0.1 K/mm3 05/12/21 04:05 Lymphocytes # (Manual) 0.3 K/mm3 (1.2-5.4) L 05/12/21 04:05 Abs React Lymphs (Man) 0.0 K/mm3 05/12/21 04:05 Monocytes # (Manual) 0.1 K/mm3 (0.0-0.8) 05/12/21 04:05 Eosinophils # (Manual) 0.0 K/mm3 (0.0-0.4) 05/12/21 04:05 Basophils # (Manual) 0.0 K/mm3 (0.0-0.1) 05/12/21 04:05 Metamyelocytes # 0.0 K/mm3 05/12/21 04:05 Myelocytes # 0.0 K/mm3 05/12/21 04:05 Promyelocytes # 0.0 K/mm3 05/12/21 04:05 Blast Cells # 0.0 K/mm3 05/12/21 04:05 WBC Morphology Not Reportable 05/12/21 04:05 Hypersegmented Neuts Not Reportable 05/12/21 04:05 Hyposegmented Neuts Not Reportable 05/12/21 04:05 Hypogranular Neuts Not Reportable 05/12/21 04:05 Smudge Cells Not Reportable 05/12/21 04:05 Toxic Granulation Not Reportable 05/12/21 04:05 Toxic Vacuolation Not Reportable 05/12/21 04:05 Dohle Bodies Not Reportable 05/12/21 04:05 Pelger-Huet Anomaly Not Reportable 05/12/21 04:05 Janelle Rods Not Reportable 05/12/21 04:05 Platelet Estimate Consistent w auto 05/12/21 04:05 Clumped Platelets Not Reportable 05/12/21 04:05 Plt Clumps, EDTA Not Reportable 05/12/21 04:05 Large Platelets Not Reportable 05/12/21 04:05 Giant Platelets Not Reportable 05/12/21 04:05 Platelet Satelliting Not Reportable 05/12/21 04:05 Plt Morphology Comment Not Reportable 05/12/21 04:05 RBC Morphology Normal 05/12/21 04:05 Dimorphic RBCs Not Reportable 05/12/21 04:05 Polychromasia Not Reportable 05/12/21 04:05 Hypochromasia Not Reportable 05/12/21 04:05 Poikilocytosis Not Reportable 05/12/21 04:05 Anisocytosis Not Reportable 05/12/21 04:05 Microcytosis Not Reportable 05/12/21 04:05 Macrocytosis Not Reportable 05/12/21 04:05 Spherocytes Not Reportable 05/12/21 04:05 Pappenheimer Bodies Not Reportable 05/12/21 04:05 Sickle Cells Not Reportable 05/12/21 04:05 Target Cells Not Reportable 05/12/21 04:05 Tear Drop Cells Not Reportable 05/12/21 04:05 Ovalocytes Not Reportable 05/12/21 04:05 Helmet Cells Not Reportable 05/12/21 04:05 [place] Bodies Not Reportable 05/12/21 04:05 [place] Rings Not Reportable 05/12/21 04:05 [place] Cells Not Reportable 05/12/21 04:05 Bite Cells Not Reportable 05/12/21 04:05 Crenated Cell Not Reportable 05/12/21 04:05 Elliptocytes Not Reportable 05/12/21 04:05 Acanthocytes (Spur) Not Reportable 05/12/21 04:05 Rouleaux Not Reportable 05/12/21 04:05 Hemoglobin C Crystals Not Reportable 05/12/21 04:05 Schistocytes Not Reportable 05/12/21 04:05 Malaria parasites Not Reportable 05/12/21 04:05 Justin Bodies Not Reportable 05/12/21 04:05 Hem Pathologist Commnt No 05/12/21 04:05 D-Dimer 910.38 ng/mlDDU (0-234) H 05/23/21 09:50 ABG pH 7.403 pH Units (7.350-7.450) 05/14/21 02:23 POC ABG pCO2 45.4 mmHg (32.0-48.0) 05/03/21 04:49 ABG pCO2 50.2 mm Hg 05/14/21 02:23 POC ABG pO2 65.3 mmHg (83-108) L 05/03/21 04:49 ABG pO2 130.3 mm Hg (80.0-90.0) H 05/14/21 02:23 POC ABG HCO3 18.5 05/03/21 04:49 ABG HCO3 30.6 mmol/L (20.0-26.0) H 05/14/21 02:23 ABG O2 Saturation 98.5 % (95.0-99.0) 05/14/21 02:23 ABG O2 Content 17.9 (0.0-44) 05/14/21 02:23 POC ABG Base Excess -8.9 05/03/21 04:49 ABG Base Excess 4.9 mmol/L (-2.0-3.0) H 05/14/21 02:23 ABG Hemoglobin 13.0 gm/dl (12.0-16.0) 05/14/21 02:23 ABG Oxyhemoglobin 87.8 (94-98) L 05/03/21 04:49 ABG Carboxyhemoglobin 1.4 % (0.0-5.0) 05/14/21 02:23 ABG Methemoglobin 0.6 % (0.0-1.5) 05/14/21 02:23 ABG Sodium 133.0 mmol/L (136.0-145.0) L 05/03/21 04:49 ABG Potassium 3.9 mmol/L (3.40-4.50) 05/03/21 04:49 ABG Chloride 97.0 mmol/L (98-107) L 05/03/21 04:49 ABG Glucose 403 mg/dL (65-95) H 05/03/21 04:49 Oxyhemoglobin 96.5 % (95.0-99.0) 05/14/21 02:23 Carboxyhemoglobin 0.6 (0.5-1.5) 05/03/21 04:49 FiO2 90 % 05/14/21 02:23 FiO2 % 100.0 05/03/21 04:49 Sodium 142 mmol/L (137-145) 05/30/21 05:55 Potassium 4.5 mmol/L (3.6-5.0) 05/30/21 05:55 Chloride 101.6 mmol/L (98-107) 05/30/21 05:55 Carbon Dioxide 25 mmol/L (22-30) 05/30/21 05:55 Anion Gap 20 mmol/L 05/30/21 05:55 BUN 19 mg/dL (7-17) H 05/30/21 05:55 Creatinine 0.2 mg/dL (0.6-1.2) L 05/30/21 05:55 Estimated GFR > 60 ml/min 05/30/21 05:55 BUN/Creatinine Ratio 95 % 05/30/21 05:55 Glucose 209 mg/dL (65-100) H 05/30/21 05:55 POC Glucose 138 mg/dL (70-105) H 05/31/21 07:36 Hemoglobin A1c 8.5 % (4-6) H 04/18/21 07:36 Calcium 9.6 mg/dL (8.4-10.2) 05/30/21 05:55 Phosphorus 3.60 mg/dL (2.5-4.5) 05/06/21 05:00 Magnesium 2.00 mg/dL (1.7-2.3) 05/06/21 05:00 Ferritin 244.9 ng/mL (10.0-200.0) H 05/23/21 09:50 Total Bilirubin 0.30 mg/dL (0.1-1.2) 05/14/21 07:13 AST 29 units/L (5-40) 05/14/21 07:13 ALT 63 units/L (7-56) H 05/14/21 07:13 Alkaline Phosphatase 72 units/L (35-129) 05/14/21 07:13 Lactate Dehydrogenase 584 units/L (91-180) H 05/23/21 09:50 C-Reactive Protein 0.10 mg/dL (0.00-1.30) 05/23/21 09:50 Total Protein 6.1 g/dL (6.3-8.2) L 05/14/21 07:13 Albumin 3.0 g/dL (3.9-5) L 05/14/21 07:13 Albumin/Globulin Ratio 1.0 % 05/14/21 07:13 Triglycerides < 9 mg/dL (2-149) 05/03/21 04:30 Procalcitonin < 0.05 ng/mL (<0.15) 05/23/21 09:50 Arterial Blood Glucose 403 mg/dL (65-95) H 05/03/21 04:49 Arterial Blood Ionized Calcium 4.9 mg/dL (4.6-5.3) 05/03/21 04:49 Coronavirus (PCR) Negative (Negative) 05/21/21 09:00 Amos/IV: Voiding Method Bedpan Active Medications - Current Medications Current Medications: Generic Name Dose Route Start Last Admin Trade Name Freq PRN Reason Stop Dose Admin Acetaminophen 650 mg 04/16/21 14:00 05/30/21 21:44 Acetaminophen 325 Mg Tab PO 650 mg Q4H PRN Administration Pain MILD(1-3)/Fever >100.5/[place] Albuterol 2.5 mg 04/16/21 13:39 04/21/21 20:39 Albuterol 2.5 Mg/3 Ml Nebu IH 2.5 mg Q4HRT PRN Administration Shortness Of Breath Artificial Tears 2 drops 04/28/21 18:15 05/29/21 13:25 Hypromellose 0.5% Ophth Soln 15 Ml OU 2 drops Q4H PRN Administration Dry Eye(s) Ascorbic Acid 500 mg 04/24/21 10:00 05/30/21 09:14 Ascorbic Acid 500 Mg Tab PO 500 mg QDAY TUTU Administration Cholecalciferol 1,000 unit 04/17/21 10:00 05/30/21 09:14 Cholecalciferol (Vit D3) 1000 Unit (25 Mcg) Tab PO 1,000 unit QDAY TUTU Administration Clonazepam 1 mg 05/29/21 08:06 Clonazepam 0.5 Mg Tab PO Q8H PRN Anxiety Dextrose 50 ml 04/18/21 07:30 04/28/21 09:59 Dextrose 50% In Water (25gm) 50 Ml Syringe IV 50 ml Q30MIN PRN Administration Hypoglycemia Protocol Docusate Sodium 100 mg 04/30/21 10:00 05/30/21 21:35 Docusate Sodium 100 Mg Cap PO 100 mg BID [facility] Administration Enoxaparin Sodium 40 mg 05/19/21 22:00 05/30/21 21:36 Enoxaparin 40 Mg/0.4 Ml Inj SUB-Q 40 mg QDAY@2200 TUTU Administration Protocol Famotidine 20 mg 05/07/21 22:00 05/30/21 21:37 Famotidine 20 Mg Tab PO 20 mg BID [facility] Administration Insulin Glargine 25 units 05/04/21 11:05 05/30/21 09:54 Insulin Glargine 100 Units/Ml SUB-Q 25 units DAILY [facility] Administration Insulin Glargine 10 units 05/06/21 22:00 05/30/21 23:45 Insulin Glargine 100 Units/Ml SUB-Q 10 units QHS [facility] Administration Insulin Human Lispro 0 unit 05/18/21 12:00 05/31/21 08:22 Insulin Lispro 100 Unit/Ml SUB-Q Not Given ACHS [facility] Protocol Lorazepam 1 mg 05/25/21 14:40 05/26/21 12:27 Lorazepam 2 Mg/Ml Vial IV 1 mg Q6H PRN Administration Agitation Methylprednisolone Sodium Succinate 60 mg 05/26/21 14:00 05/31/21 05:58 Methylprednisolone Sod Succinate 125 Mg/2 Ml Inj IV 60 mg Q8HR [facility] Administration Multi-Ingred Cream/Lotion/Oil/Oint 1 applic 05/10/21 14:00 05/30/21 21:35 Mineral Oil/Petrolatum, White Ophth Oint 3.5 Gm OU Not Given Q8HR [facility] Ondansetron HCl 4 mg 04/16/21 14:00 05/30/21 10:07 Ondansetron 4 Mg/2 Ml Inj IV 4 mg Q8H PRN Administration Nausea And Vomiting Polyethylene Glycol 17 gm 05/02/21 16:00 05/30/21 09:14 Polyethylene Glycol 3350 17 Gm Powder PO Not Given QDAY TUTU Senna 17.2 mg 05/02/21 22:00 05/30/21 22:00 Sennosides 8.6 Mg Tab PO 17.2 mg QHS [facility] Administration Sodium Chloride 10 ml 04/16/21 22:00 05/30/21 22:00 Sodium Chloride 0.9% 10 Ml Flush Syringe IV 10 ml BID TUTU Administration Sodium Chloride 10 ml 04/16/21 13:39 05/22/21 15:21 Sodium Chloride 0.9% 10 Ml Flush Syringe IV 10 ml PRN PRN Administration LINE FLUSH Zinc Sulfate 220 mg 04/16/21 22:00 05/30/21 21:37 Zinc Sulfate 220 Mg Cap PO 220 mg BID TUTU Administration Zolpidem Tartrate 10 mg 05/26/21 08:56 05/28/21 22:56 Zolpidem 5 Mg Tab PO 10 mg QHS PRN Administration Insomnia Nutrition/Malnutrition Assess - Dietary Evaluation Nutrition/Malnutrition Findings: Nutrition Notes Start: 04/23/21 07:41 Freq: Status: Active Protocol: Document 05/28/21 11:56 (Rec: 05/28/21 11:58 [id number]) Nutrition Notes Initial or Follow up Reassessment Current Diagnosis Respiratory Failure Other Pertinent Diagnosis oral thrush, COVID-19 pneu Current Diet GI soft Labs/Tests POC BG 115-318 Pertinent Medications Solu Medrol Miralax Height 4 ft 11.84 in Weight 63.4 kg Remlap Body Weight (kg) 45.09 BMI 27.4 Weight Status Overweight Subjective/Other Information Pt continues to eat 75-100% of meals. Percent of energy/protein needs met: 100%/93% Burn Absent Trauma Absent Current % PO Good (75-100%) Minimum of two criteria Yes Energy Intake (severe) < or equal to 50% Estimated Energy Requirement > or equal to 5 days Interpretation of Weight Loss (severe) >5% in 1 month #2 Nutrition Diagnosis Malnutrition Diagnosis Progress(for reassessment Continues documentation) #1 Nutrition Diagnosis Inadequate oral intake As Evidenced by Signs and Symptoms pt continues to meet 100%/93% of kcal/protein needs Diagnosis Progress(for reassessment Resolved documentation) Is patient on ventilator? No Is Patient Ambulatory and/or Out of Bed No REE-(Grainger-St. Jeor-confined to bed) 1417.464 Kcal/Kg value to use for calculation 25 Approximate Energy Requirements Using 1585 kcal/Kg Calculation Used for Recommendations Grainger-St Jeor Additional Notes Pro needs 1.2-2g/k-137g/ day Fluid needs 1ml/kcal Nutrition Intervention Change Diet Order: contiue Add Supplement/Snack (indicate name/kcal Glucerna BID /protein ) Provides kCal: 440 Provides Protein (gm) 20 Goal #1 Meet at least 75% of protein and energy needs Anticipated Discharge Needs: Consistent CHO Follow-Up By: 06/04/21 Additional Comments F/u: stable intakes
[2021-05-31] MEDS: DOCUSATE SODIUM 100 MG CAP PO SCH ×2 (10:31→21:56)
[2021-05-31] MEDS: ZINC SULFATE 220 MG CAP PO SCH ×2 (10:31→21:59)
[2021-05-31] MEDS: FAMOTIDINE 20 MG TAB PO SCH ×2 (10:31→21:57)
[2021-05-31] MEDS: ASCORBIC ACID 500 MG TAB PO SCH (10:31)
[2021-05-31] MEDS: CHOLECALCIFEROL (VIT D3) 1000 UNIT (25 mcg) TAB PO SCH (10:31)
[2021-05-31] MEDS: INSULIN GLARGINE 100 UNITS/ML SUB-Q SCH ×2 (10:32→21:57)
[2021-05-31] MEDS: POLYETHYLENE GLYCOL 3350 17 GM POWDER PO SCH (10:32)
--- NOTE | 2021-05-31 11:33 | Progress Note ---
Assessment and Plan 50 y/o female with acute respiratory failure secondary to COVID19 pneumonia. 05/31/21: Clinically no change. Not eligible for LTACH. Encourage Proning. Will drop steroids down to 40 q8 05/29/21: No acute changes clinically. Still on HFNC but not really able to wean. Continue to encourage proning. Will drop steroids further on Thursday. 05/27/21: No improvement over the weekend but also no worsening. No other strategies to offer. Please continue to encourage patient to prone. I dropped steroids on yesterday. Will wean more later in the week. 05/24/21: No new recs again for today. Will see as needed over the weekend but follow chart peripherally for changes. 05/22/21: No new recs for today. Prognosis remains guarded. 05/21/21: Wean as tolerated. Prone if able. Guarded prognosis 05/20/21: COntinue current level of care. 05/17/21: Prone if possible. Wean FiO2 for sats >88%. Continue scheduled ativan. Prognosis is very very guarded. Unfunded so not a candidate for LTACH 05/16/21: Prone if willing. Wean FIO2 if patient will allow. Anxiety control. Prognosis still remains very guarded. 05/15/21: Not sure if MAR is accurate but may have only gotten one dose of scheduled anixolytic therapy. Continue proning as tolerated, and wean FiO2 and flow for sats >88%. Prognosi remains very very guarded to poor. 05/14/21: Will discontinue the buspar and make the ativan scheduled but will do q6 as oppose to q4 and attempt to leave parameters for nursing when not to give. If anxiety could be controlled, feel that patient could be weaned further. She has no funding so she is not a candidate for LTACH. Prone if possible. Guarded prognosis. This is her 28 day. 05/13/21: Ordered buspar 10 BID to start with to help with anxiety. Please continue to wean FiO2 as tolerated. Will remind nurse that there is PRN ativan available. Continue higher doses of steroids. Prone if able. 05/12/21: Patient may need something longer acting for anxiety. Per chart has not gotten any ativan in days. Would be ok with either buspar or low dose klonopin bid. COntinue higher doses of steroids as patient seems to be responding. Prone if possible. 05/11/21: Continue high doses of steroids and continue to wean for sats >88%. Please encourage proning. 05/10/21: Will continue this dose of steroid at least through the weekend and assess for improvement. will speak with RT about aggressive weaning. Full dose anticoagulation continues. Very very guarded to poor prognosis. 05/09/21: Going to consider increasing steroids to 125q8, maybe as early as tomorrow. continue full dose anticoagulation. 05/08/21: Continue anticoagulation and steroids. Prone if possible. Anxiety control. No objection to CTA if this can happen. Very very guarded prognosis. 05/07/21: Spoke with IMS, not opposed to full dose anticoagulation. If patient goes back on NRB HFNC combo may need to consider restarting PPN again. Encourage proning. Guarded prognosis. 05/06/21: Continue to wean FiO2 and flow for sats >88%. Tolerating diet now so will stop PPN. Continue anxiety control. Continue IV steroids. [facility] Not sure why she was titrated back up to 100% from 85 as all sats documented in the RT's notes were acceptable. Same for under vital signs as well. 05/03/21: Set back last night from yesterday. Continue bipap therapy for now and attempt HFNC maybe later this afternoon. Continue to use PRN ativan but may need to schedule as she likely took off mask from anxiety. Continue IV steroids. Hold on transfer to COVID Floor. 05/02/21: Continue to wean FiO2 as tolerated for sats >88%. Will continue bipap at night. Patient has no funding so not a candidate for LTACH. Given that she has been stable and not requiring the combo of HFNC and NRB, will consider moving to COVID floor. 05/01/21: Continue to wean FiO2 for sats >88%. A sat of 90 is more than acceptable and oxygen should not be increased for this unless patient desats and remains at a sat lower than 88. Bipap at night to give some form of relief and HFNC during the day. Currently on just this alone which is improvement. Ok with daily diuresis but must monitor renal function and BP closely. She was over diuresed last week and we ended up giving fluid back. Prognosis remains guarded. 04/30/21: Will start CLinimix today for nutritional support, without electrolytes. Check labs in am. Prone if able. Continue precedx for anxiety. Very very guarded prognosis. Attempting our best to not intubate. 04/29/21: Continue precedex. Continue IV solumedrol. Prone if able. Guarded prognosis. 04/28/21: Continue Precedex. Picc team attempting to place line now. Stable on Bipap. Ordered steroids IV solumedrol to start today. Prognosis remains guarded, still at very high risk for intubation. 04/27/21: Hypotension improving/improved. Hold on any further lasix dosing. Continue precedex to help with anxeity. later today please attempt HFNC with NRB if needed. Attempt to feed if possible. Steroids end today, please order solumedrol 40q8 to start tomorrow (04/28/21). guarded prognosis. 04/26/21: Hypotension today, most likely from precedex use and diuresis that I did the last several days. Will bolus again today. Consider midodrine if BP does not respond. 04/25/21: Lasix again today. Keep PRN ativan for now. Hold on precedex for now. Guarded prognosis. Labs ordered for tomorrow. 04/24/21: Lasix today. Will also start patient on low dose PRN ativan. If this does not help will then try precedex. Guarded prognosis. 04/23/21: Prone as tolerated. No lasix today. Continue decadron. Guarded prognosis. High risk for intubation and high mortality with intubation. 04/19/21: Prone as tolerated during the day and sleep prone at night. Continue IV remdesivir and steroids. Did get actemra. Guarded prognosis. 1. Daily net negative state 2. Prone if possible 3. IV remdesivir. 4. Should be a candidate for Actemra 5. IV steroids 6. Guarded Prognosis Subjective Date of service: 05/31/21 Principal diagnosis: Covid-19 Interval history: No acute events. Still on HFNC. Objective Vital Signs - 12hr 05/31/21 05/31/21 05/31/21 02:00 04:22 08:48 Temperature 98.4 F Pulse Rate 74 Respiratory 20 Rate Blood Pressure 114/65 O2 Sat by Pulse 93 97 96 Oximetry 05/31/21 08:52 Temperature Pulse Rate 74 Respiratory 20 Rate Blood Pressure 114/65 O2 Sat by Pulse 96 Oximetry Constitutional: no acute distress, alert Eyes: non-icteric ENT: oropharynx moist Neck: supple Effort: normal Ascultation: Bilateral: diminished breath sounds Cardiovascular: regular rate and rhythm Gastrointestinal: normoactive bowel sounds, soft, non-tender, non-distended Integumentary: normal Extremities: no cyanosis, no edema, pink and warm Neurologic: normal mental status, non-focal exam, pupils equal and round, CN II- XII normal Psychiatric: mood appropriate, affect normal CBC and BMP: 05/30/21 05:55 05/30/21 05:55 ABG, PT/INR, D-dimer: ABG ABG pH 7.403 pH Units (7.350-7.450) 05/14/21 02:23 POC ABG pCO2 45.4 mmHg (32.0-48.0) 05/03/21 04:49 ABG pCO2 50.2 mm Hg 05/14/21 02:23 POC ABG pO2 65.3 mmHg (83-108) L 05/03/21 04:49 ABG pO2 130.3 mm Hg (80.0-90.0) H 05/14/21 02:23 POC ABG HCO3 18.5 05/03/21 04:49 ABG O2 Saturation 98.5 % (95.0-99.0) 05/14/21 02:23 PT/INR, D-dimer D-Dimer 910.38 ng/mlDDU (0-234) H 05/23/21 09:50 Abnormal lab findings: Abnormal Labs 04/16/21 04/16/21 04/16/21 11:42 11:42 11:42 WBC MCHC RDW 16.1 H Lymph % (Auto) 7.8 L Lymph # (Auto) 0.8 L Baso # (Auto) Seg Neutrophils % 87.7 H Seg Neuts % (Manual) Lymphocytes % (Manual) Seg Neutrophils # 8.5 H Seg Neutrophils # Man Lymphocytes # (Manual) D-Dimer 338.70 H ABG pH POC ABG pO2 ABG pO2 ABG HCO3 ABG O2 Saturation ABG Base Excess ABG Oxyhemoglobin ABG Sodium ABG Chloride ABG Glucose Oxyhemoglobin Carboxyhemoglobin Sodium Potassium Chloride Carbon Dioxide BUN Creatinine Glucose 194 H POC Glucose Hemoglobin A1c Ferritin AST ALT Alkaline Phosphatase Lactate Dehydrogenase C-Reactive Protein Total Protein 8.4 H Albumin 3.8 L Arterial Blood Glucose Coronavirus (PCR) 04/16/21 04/16/21 04/17/21 11:42 11:42 03:50 WBC MCHC RDW 16.0 H Lymph % (Auto) 7.7 L Lymph # (Auto) 0.6 L Baso # (Auto) Seg Neutrophils % 89.8 H Seg Neuts % (Manual) Lymphocytes % (Manual) Seg Neutrophils # Seg Neutrophils # Man Lymphocytes # (Manual) D-Dimer ABG pH POC ABG pO2 ABG pO2 ABG HCO3 ABG O2 Saturation ABG Base Excess ABG Oxyhemoglobin ABG Sodium ABG Chloride ABG Glucose Oxyhemoglobin Carboxyhemoglobin Sodium Potassium Chloride Carbon Dioxide BUN Creatinine Glucose 195 H POC Glucose Hemoglobin A1c Ferritin 254.3 H AST ALT Alkaline Phosphatase Lactate Dehydrogenase 359 H C-Reactive Protein 15.20 H Total Protein Albumin Arterial Blood Glucose Coronavirus (PCR) 04/17/21 04/17/21 04/17/21 03:50 08:26 08:26 WBC MCHC RDW Lymph % (Auto) Lymph # (Auto) Baso # (Auto) Seg Neutrophils % Seg Neuts % (Manual) Lymphocytes % (Manual) Seg Neutrophils # Seg Neutrophils # Man Lymphocytes # (Manual) D-Dimer 262.48 H ABG pH POC ABG pO2 ABG pO2 ABG HCO3 ABG O2 Saturation ABG Base Excess ABG Oxyhemoglobin ABG Sodium ABG Chloride ABG Glucose Oxyhemoglobin Carboxyhemoglobin Sodium Potassium Chloride Carbon Dioxide BUN 20 H Creatinine 0.5 L Glucose 249 H 225 H POC Glucose Hemoglobin A1c Ferritin AST ALT Alkaline Phosphatase Lactate Dehydrogenase 338 H C-Reactive Protein 17.20 H Total Protein Albumin 3.2 L Arterial Blood Glucose Coronavirus (PCR) 04/17/21 04/17/21 04/17/21 08:26 15:04 Unknown WBC MCHC RDW Lymph % (Auto) Lymph # (Auto) Baso # (Auto) Seg Neutrophils % Seg Neuts % (Manual) Lymphocytes % (Manual) Seg Neutrophils # Seg Neutrophils # Man Lymphocytes # (Manual) D-Dimer ABG pH POC ABG pO2 ABG pO2 ABG HCO3 ABG O2 Saturation ABG Base Excess ABG Oxyhemoglobin ABG Sodium ABG Chloride ABG Glucose Oxyhemoglobin Carboxyhemoglobin Sodium Potassium Chloride Carbon Dioxide BUN 20 H Creatinine 0.5 L Glucose 246 H POC Glucose Hemoglobin A1c Ferritin 392.0 H AST ALT Alkaline Phosphatase Lactate Dehydrogenase C-Reactive Protein Total Protein 8.3 H Albumin 3.1 L Arterial Blood Glucose Coronavirus (PCR) Positive A 04/18/21 04/18/21 04/18/21 05:06 05:06 07:36 WBC 11.6 H MCHC RDW 16.1 H Lymph % (Auto) Lymph # (Auto) Baso # (Auto) Seg Neutrophils % Seg Neuts % (Manual) Lymphocytes % (Manual) Seg Neutrophils # Seg Neutrophils # Man Lymphocytes # (Manual) D-Dimer ABG pH POC ABG pO2 ABG pO2 ABG HCO3 ABG O2 Saturation ABG Base Excess ABG Oxyhemoglobin ABG Sodium ABG Chloride ABG Glucose Oxyhemoglobin Carboxyhemoglobin Sodium Potassium 5.2 H Chloride Carbon Dioxide BUN 22 H Creatinine 0.5 L Glucose 315 H POC Glucose Hemoglobin A1c 8.5 H Ferritin AST ALT Alkaline Phosphatase Lactate Dehydrogenase C-Reactive Protein Total Protein Albumin 3.3 L Arterial Blood Glucose Coronavirus (PCR) 04/18/21 04/18/21 04/18/21 11:59 16:43 23:24 WBC MCHC RDW Lymph % (Auto) Lymph # (Auto) Baso # (Auto) Seg Neutrophils % Seg Neuts % (Manual) Lymphocytes % (Manual) Seg Neutrophils # Seg Neutrophils # Man Lymphocytes # (Manual) D-Dimer ABG pH POC ABG pO2 ABG pO2 ABG HCO3 ABG O2 Saturation ABG Base Excess ABG Oxyhemoglobin ABG Sodium ABG Chloride ABG Glucose Oxyhemoglobin Carboxyhemoglobin Sodium Potassium Chloride Carbon Dioxide BUN Creatinine Glucose POC Glucose 284 H 273 H 290 H Hemoglobin A1c Ferritin AST ALT Alkaline Phosphatase Lactate Dehydrogenase C-Reactive Protein Total Protein Albumin Arterial Blood Glucose Coronavirus (PCR) 04/19/21 04/19/21 04/19/21 04:19 04:19 08:10 WBC MCHC RDW 15.7 H Lymph % (Auto) Lymph # (Auto) Baso # (Auto) Seg Neutrophils % Seg Neuts % (Manual) Lymphocytes % (Manual) Seg Neutrophils # Seg Neutrophils # Man Lymphocytes # (Manual) D-Dimer ABG pH POC ABG pO2 ABG pO2 ABG HCO3 ABG O2 Saturation ABG Base Excess ABG Oxyhemoglobin ABG Sodium ABG Chloride ABG Glucose Oxyhemoglobin Carboxyhemoglobin Sodium Potassium Chloride Carbon Dioxide BUN 27 H Creatinine 0.4 L Glucose 184 H POC Glucose 194 H Hemoglobin A1c Ferritin AST ALT Alkaline Phosphatase Lactate Dehydrogenase C-Reactive Protein Total Protein Albumin 3.1 L Arterial Blood Glucose Coronavirus (PCR) 04/19/21 04/19/21 04/19/21 11:38 16:25 22:04 WBC MCHC RDW Lymph % (Auto) Lymph # (Auto) Baso # (Auto) Seg Neutrophils % Seg Neuts % (Manual) Lymphocytes % (Manual) Seg Neutrophils # Seg Neutrophils # Man Lymphocytes # (Manual) D-Dimer ABG pH POC ABG pO2 ABG pO2 ABG HCO3 ABG O2 Saturation ABG Base Excess ABG Oxyhemoglobin ABG Sodium ABG Chloride ABG Glucose Oxyhemoglobin Carboxyhemoglobin Sodium Potassium Chloride Carbon Dioxide BUN Creatinine Glucose POC Glucose 224 H 297 H 251 H Hemoglobin A1c Ferritin AST ALT Alkaline Phosphatase Lactate Dehydrogenase C-Reactive Protein Total Protein Albumin Arterial Blood Glucose Coronavirus (PCR) 04/20/21 04/20/21 04/20/21 05:28 08:43 16:21 WBC MCHC RDW Lymph % (Auto) Lymph # (Auto) Baso # (Auto) Seg Neutrophils % Seg Neuts % (Manual) Lymphocytes % (Manual) Seg Neutrophils # Seg Neutrophils # Man Lymphocytes # (Manual) D-Dimer ABG pH POC ABG pO2 ABG pO2 ABG HCO3 ABG O2 Saturation ABG Base Excess ABG Oxyhemoglobin ABG Sodium ABG Chloride ABG Glucose Oxyhemoglobin Carboxyhemoglobin Sodium Potassium Chloride Carbon Dioxide BUN 27 H Creatinine Glucose 192 H POC Glucose 173 H 253 H Hemoglobin A1c Ferritin AST ALT Alkaline Phosphatase Lactate Dehydrogenase C-Reactive Protein Total Protein Albumin 3.0 L Arterial Blood Glucose Coronavirus (PCR) 04/21/21 04/21/21 04/21/21 07:58 12:05 16:08 WBC MCHC RDW Lymph % (Auto) Lymph # (Auto) Baso # (Auto) Seg Neutrophils % Seg Neuts % (Manual) Lymphocytes % (Manual) Seg Neutrophils # Seg Neutrophils # Man Lymphocytes # (Manual) D-Dimer ABG pH POC ABG pO2 ABG pO2 ABG HCO3 ABG O2 Saturation ABG Base Excess ABG Oxyhemoglobin ABG Sodium ABG Chloride ABG Glucose Oxyhemoglobin Carboxyhemoglobin Sodium Potassium Chloride Carbon Dioxide BUN Creatinine Glucose POC Glucose 140 H 252 H 214 H Hemoglobin A1c Ferritin AST ALT Alkaline Phosphatase Lactate Dehydrogenase C-Reactive Protein Total Protein Albumin Arterial Blood Glucose Coronavirus (PCR) 04/21/21 04/22/21 04/22/21 21:42 08:37 12:01 WBC MCHC RDW Lymph % (Auto) Lymph # (Auto) Baso # (Auto) Seg Neutrophils % Seg Neuts % (Manual) Lymphocytes % (Manual) Seg Neutrophils # Seg Neutrophils # Man Lymphocytes # (Manual) D-Dimer ABG pH 7.457 H POC ABG pO2 49.4 L ABG pO2 ABG HCO3 ABG O2 Saturation ABG Base Excess ABG Oxyhemoglobin 85.6 L ABG Sodium ABG Chloride ABG Glucose 121 H Oxyhemoglobin Carboxyhemoglobin 0.3 L Sodium Potassium Chloride Carbon Dioxide BUN Creatinine Glucose POC Glucose 162 H 227 H Hemoglobin A1c Ferritin AST ALT Alkaline Phosphatase Lactate Dehydrogenase C-Reactive Protein Total Protein Albumin Arterial Blood Glucose 121 H Coronavirus (PCR) 04/22/21 04/22/21 04/23/21 16:26 22:23 04:52 WBC MCHC RDW 15.7 H Lymph % (Auto) Lymph # (Auto) Baso # (Auto) Seg Neutrophils % Seg Neuts % (Manual) Lymphocytes % (Manual) Seg Neutrophils # Seg Neutrophils # Man Lymphocytes # (Manual) D-Dimer ABG pH POC ABG pO2 ABG pO2 ABG HCO3 ABG O2 Saturation ABG Base Excess ABG Oxyhemoglobin ABG Sodium ABG Chloride ABG Glucose Oxyhemoglobin Carboxyhemoglobin Sodium Potassium Chloride Carbon Dioxide BUN Creatinine Glucose POC Glucose 200 H 136 H Hemoglobin A1c Ferritin AST ALT Alkaline Phosphatase Lactate Dehydrogenase C-Reactive Protein Total Protein Albumin Arterial Blood Glucose Coronavirus (PCR) 04/23/21 04/23/21 04/23/21 04:52 12:06 17:41 WBC MCHC RDW Lymph % (Auto) Lymph # (Auto) Baso # (Auto) Seg Neutrophils % Seg Neuts % (Manual) Lymphocytes % (Manual) Seg Neutrophils # Seg Neutrophils # Man Lymphocytes # (Manual) D-Dimer ABG pH POC ABG pO2 ABG pO2 ABG HCO3 ABG O2 Saturation ABG Base Excess ABG Oxyhemoglobin ABG Sodium ABG Chloride ABG Glucose Oxyhemoglobin Carboxyhemoglobin Sodium 136 L Potassium Chloride 97.7 L Carbon Dioxide BUN 23 H Creatinine Glucose 101 H POC Glucose 202 H 169 H Hemoglobin A1c Ferritin AST 46 H ALT Alkaline Phosphatase Lactate Dehydrogenase C-Reactive Protein Total Protein Albumin 3.3 L Arterial Blood Glucose Coronavirus (PCR) 04/23/21 04/24/21 04/24/21 23:08 05:17 08:38 WBC MCHC RDW Lymph % (Auto) Lymph # (Auto) Baso # (Auto) Seg Neutrophils % Seg Neuts % (Manual) Lymphocytes % (Manual) Seg Neutrophils # Seg Neutrophils # Man Lymphocytes # (Manual) D-Dimer ABG pH POC ABG pO2 ABG pO2 ABG HCO3 ABG O2 Saturation ABG Base Excess ABG Oxyhemoglobin ABG Sodium ABG Chloride ABG Glucose Oxyhemoglobin Carboxyhemoglobin Sodium Potassium Chloride Carbon Dioxide BUN Creatinine Glucose POC Glucose 111 H 108 H 126 H Hemoglobin A1c Ferritin AST ALT Alkaline Phosphatase Lactate Dehydrogenase C-Reactive Protein Total Protein Albumin Arterial Blood Glucose Coronavirus (PCR) 04/24/21 04/24/21 04/24/21 11:54 17:57 21:23 WBC MCHC RDW Lymph % (Auto) Lymph # (Auto) Baso # (Auto) Seg Neutrophils % Seg Neuts % (Manual) Lymphocytes % (Manual) Seg Neutrophils # Seg Neutrophils # Man Lymphocytes # (Manual) D-Dimer ABG pH POC ABG pO2 ABG pO2 ABG HCO3 ABG O2 Saturation ABG Base Excess ABG Oxyhemoglobin ABG Sodium ABG Chloride ABG Glucose Oxyhemoglobin Carboxyhemoglobin Sodium Potassium Chloride Carbon Dioxide BUN Creatinine Glucose POC Glucose 147 H 177 H 138 H Hemoglobin A1c Ferritin AST ALT Alkaline Phosphatase Lactate Dehydrogenase C-Reactive Protein Total Protein Albumin Arterial Blood Glucose Coronavirus (PCR) 04/25/21 04/25/21 04/25/21 07:06 11:23 15:43 WBC MCHC RDW Lymph % (Auto) Lymph # (Auto) Baso # (Auto) Seg Neutrophils % Seg Neuts % (Manual) Lymphocytes % (Manual) Seg Neutrophils # Seg Neutrophils # Man Lymphocytes # (Manual) D-Dimer ABG pH POC ABG pO2 ABG pO2 ABG HCO3 ABG O2 Saturation ABG Base Excess ABG Oxyhemoglobin ABG Sodium ABG Chloride ABG Glucose Oxyhemoglobin Carboxyhemoglobin Sodium Potassium Chloride Carbon Dioxide BUN Creatinine Glucose POC Glucose 147 H 169 H 227 H Hemoglobin A1c Ferritin AST ALT Alkaline Phosphatase Lactate Dehydrogenase C-Reactive Protein Total Protein Albumin Arterial Blood Glucose Coronavirus (PCR) 04/25/21 04/26/21 04/26/21 21:22 02:45 05:15 WBC MCHC RDW Lymph % (Auto) Lymph # (Auto) Baso # (Auto) Seg Neutrophils % Seg Neuts % (Manual) Lymphocytes % (Manual) Seg Neutrophils # Seg Neutrophils # Man Lymphocytes # (Manual) D-Dimer ABG pH POC ABG pO2 70.7 L ABG pO2 ABG HCO3 ABG O2 Saturation ABG Base Excess ABG Oxyhemoglobin 93.0 L ABG Sodium 132.7 L ABG Chloride ABG Glucose 115 H Oxyhemoglobin Carboxyhemoglobin Sodium Potassium Chloride 95.8 L Carbon Dioxide 32 H BUN 20 H Creatinine Glucose 102 H POC Glucose 196 H Hemoglobin A1c Ferritin AST ALT Alkaline Phosphatase Lactate Dehydrogenase C-Reactive Protein Total Protein Albumin Arterial Blood Glucose 115 H Coronavirus (PCR) 04/26/21 04/26/21 04/26/21 11:49 16:09 21:07 WBC MCHC RDW Lymph % (Auto) Lymph # (Auto) Baso # (Auto) Seg Neutrophils % Seg Neuts % (Manual) Lymphocytes % (Manual) Seg Neutrophils # Seg Neutrophils # Man Lymphocytes # (Manual) D-Dimer ABG pH POC ABG pO2 ABG pO2 ABG HCO3 ABG O2 Saturation ABG Base Excess ABG Oxyhemoglobin ABG Sodium ABG Chloride ABG Glucose Oxyhemoglobin Carboxyhemoglobin Sodium Potassium Chloride Carbon Dioxide BUN Creatinine Glucose POC Glucose 114 H 188 H 136 H Hemoglobin A1c Ferritin AST ALT Alkaline Phosphatase Lactate Dehydrogenase C-Reactive Protein Total Protein Albumin Arterial Blood Glucose Coronavirus (PCR) 04/27/21 04/27/21 04/28/21 17:34 22:12 08:26 WBC MCHC RDW Lymph % (Auto) Lymph # (Auto) Baso # (Auto) Seg Neutrophils % Seg Neuts % (Manual) Lymphocytes % (Manual) Seg Neutrophils # Seg Neutrophils # Man Lymphocytes # (Manual) D-Dimer ABG pH POC ABG pO2 ABG pO2 ABG HCO3 ABG O2 Saturation ABG Base Excess ABG Oxyhemoglobin ABG Sodium ABG Chloride ABG Glucose Oxyhemoglobin Carboxyhemoglobin Sodium Potassium Chloride Carbon Dioxide BUN Creatinine Glucose POC Glucose 128 H 159 H 69 L Hemoglobin A1c Ferritin AST ALT Alkaline Phosphatase Lactate Dehydrogenase C-Reactive Protein Total Protein Albumin Arterial Blood Glucose Coronavirus (PCR) 04/28/21 04/28/21 04/29/21 12:22 21:11 06:05 WBC MCHC RDW Lymph % (Auto) Lymph # (Auto) Baso # (Auto) Seg Neutrophils % Seg Neuts % (Manual) Lymphocytes % (Manual) Seg Neutrophils # Seg Neutrophils # Man Lymphocytes # (Manual) D-Dimer ABG pH POC ABG pO2 ABG pO2 ABG HCO3 ABG O2 Saturation ABG Base Excess ABG Oxyhemoglobin ABG Sodium ABG Chloride ABG Glucose Oxyhemoglobin Carboxyhemoglobin Sodium 132 L Potassium Chloride 94.4 L Carbon Dioxide BUN Creatinine 0.2 L D Glucose 140 H POC Glucose 141 H 171 H Hemoglobin A1c Ferritin AST ALT Alkaline Phosphatase Lactate Dehydrogenase C-Reactive Protein Total Protein Albumin Arterial Blood Glucose Coronavirus (PCR) 04/29/21 04/29/21 04/29/21 06:05 07:24 11:36 WBC MCHC 35 H RDW 15.9 H Lymph % (Auto) Lymph # (Auto) Baso # (Auto) Seg Neutrophils % Seg Neuts % (Manual) Lymphocytes % (Manual) Seg Neutrophils # Seg Neutrophils # Man Lymphocytes # (Manual) D-Dimer ABG pH POC ABG pO2 ABG pO2 ABG HCO3 ABG O2 Saturation ABG Base Excess ABG Oxyhemoglobin ABG Sodium ABG Chloride ABG Glucose Oxyhemoglobin Carboxyhemoglobin Sodium Potassium Chloride Carbon Dioxide BUN Creatinine Glucose POC Glucose 141 H 220 H Hemoglobin A1c Ferritin AST ALT Alkaline Phosphatase Lactate Dehydrogenase C-Reactive Protein Total Protein Albumin Arterial Blood Glucose Coronavirus (PCR) 04/29/21 04/29/21 04/29/21 14:23 15:30 17:06 WBC MCHC RDW Lymph % (Auto) Lymph # (Auto) Baso # (Auto) Seg Neutrophils % Seg Neuts % (Manual) Lymphocytes % (Manual) Seg Neutrophils # Seg Neutrophils # Man Lymphocytes # (Manual) D-Dimer ABG pH POC ABG pO2 ABG pO2 52.6 L ABG HCO3 ABG O2 Saturation 86.4 L ABG Base Excess ABG Oxyhemoglobin ABG Sodium ABG Chloride ABG Glucose Oxyhemoglobin 84.6 L Carboxyhemoglobin Sodium Potassium Chloride Carbon Dioxide BUN Creatinine Glucose POC Glucose 173 H 158 H Hemoglobin A1c Ferritin AST ALT Alkaline Phosphatase Lactate Dehydrogenase C-Reactive Protein Total Protein Albumin Arterial Blood Glucose Coronavirus (PCR) 04/29/21 04/30/21 04/30/21 21:27 07:16 08:00 WBC MCHC RDW 16.1 H Lymph % (Auto) Lymph # (Auto) Baso # (Auto) Seg Neutrophils % Seg Neuts % (Manual) Lymphocytes % (Manual) Seg Neutrophils # Seg Neutrophils # Man Lymphocytes # (Manual) D-Dimer ABG pH POC ABG pO2 ABG pO2 ABG HCO3 ABG O2 Saturation ABG Base Excess ABG Oxyhemoglobin ABG Sodium ABG Chloride ABG Glucose Oxyhemoglobin Carboxyhemoglobin Sodium Potassium Chloride Carbon Dioxide BUN Creatinine Glucose POC Glucose 244 H 175 H Hemoglobin A1c Ferritin AST ALT Alkaline Phosphatase Lactate Dehydrogenase C-Reactive Protein Total Protein Albumin Arterial Blood Glucose Coronavirus (PCR) 04/30/21 04/30/21 04/30/21 08:00 08:00 11:03 WBC MCHC RDW Lymph % (Auto) Lymph # (Auto) Baso # (Auto) Seg Neutrophils % Seg Neuts % (Manual) Lymphocytes % (Manual) Seg Neutrophils # Seg Neutrophils # Man Lymphocytes # (Manual) D-Dimer 1796.87 H ABG pH POC ABG pO2 ABG pO2 ABG HCO3 ABG O2 Saturation ABG Base Excess ABG Oxyhemoglobin ABG Sodium ABG Chloride ABG Glucose Oxyhemoglobin Carboxyhemoglobin Sodium 135 L Potassium Chloride 96.3 L Carbon Dioxide BUN Creatinine 0.2 L Glucose 153 H POC Glucose 183 H Hemoglobin A1c Ferritin AST 41 H ALT 76 H Alkaline Phosphatase 160 H Lactate Dehydrogenase 522 H C-Reactive Protein Total Protein 6.1 L Albumin 3.1 L Arterial Blood Glucose Coronavirus (PCR) 04/30/21 04/30/21 05/01/21 17:04 22:17 05:39 WBC MCHC RDW Lymph % (Auto) Lymph # (Auto) Baso # (Auto) Seg Neutrophils % Seg Neuts % (Manual) Lymphocytes % (Manual) Seg Neutrophils # Seg Neutrophils # Man Lymphocytes # (Manual) D-Dimer ABG pH POC ABG pO2 ABG pO2 ABG HCO3 ABG O2 Saturation ABG Base Excess ABG Oxyhemoglobin ABG Sodium ABG Chloride ABG Glucose Oxyhemoglobin Carboxyhemoglobin Sodium 133 L Potassium Chloride 92.1 L Carbon Dioxide BUN 24 H Creatinine 0.4 L D Glucose 269 H POC Glucose 167 H 208 H Hemoglobin A1c Ferritin AST ALT 66 H Alkaline Phosphatase 142 H Lactate Dehydrogenase C-Reactive Protein Total Protein Albumin 3.2 L Arterial Blood Glucose Coronavirus (PCR) 05/01/21 05/01/21 05/01/21 05:39 05:39 07:45 WBC MCHC RDW 16.0 H Lymph % (Auto) Lymph # (Auto) Baso # (Auto) Seg Neutrophils % Seg Neuts % (Manual) Lymphocytes % (Manual) Seg Neutrophils # Seg Neutrophils # Man Lymphocytes # (Manual) D-Dimer 3984.95 H ABG pH POC ABG pO2 ABG pO2 ABG HCO3 ABG O2 Saturation ABG Base Excess ABG Oxyhemoglobin ABG Sodium ABG Chloride ABG Glucose Oxyhemoglobin Carboxyhemoglobin Sodium Potassium Chloride Carbon Dioxide BUN Creatinine Glucose POC Glucose 229 H Hemoglobin A1c Ferritin AST ALT Alkaline Phosphatase Lactate Dehydrogenase C-Reactive Protein Total Protein Albumin Arterial Blood Glucose Coronavirus (PCR) 05/01/21 05/01/21 05/01/21 12:10 15:46 21:06 WBC MCHC RDW Lymph % (Auto) Lymph # (Auto) Baso # (Auto) Seg Neutrophils % Seg Neuts % (Manual) Lymphocytes % (Manual) Seg Neutrophils # Seg Neutrophils # Man Lymphocytes # (Manual) D-Dimer ABG pH POC ABG pO2 ABG pO2 ABG HCO3 ABG O2 Saturation ABG Base Excess ABG Oxyhemoglobin ABG Sodium ABG Chloride ABG Glucose Oxyhemoglobin Carboxyhemoglobin Sodium Potassium Chloride Carbon Dioxide BUN Creatinine Glucose POC Glucose 296 H 279 H 232 H Hemoglobin A1c Ferritin AST ALT Alkaline Phosphatase Lactate Dehydrogenase C-Reactive Protein Total Protein Albumin Arterial Blood Glucose Coronavirus (PCR) 05/02/21 05/02/21 05/02/21 04:55 04:55 04:55 WBC MCHC RDW 16.1 H Lymph % (Auto) Lymph # (Auto) Baso # (Auto) Seg Neutrophils % Seg Neuts % (Manual) Lymphocytes % (Manual) Seg Neutrophils # Seg Neutrophils # Man Lymphocytes # (Manual) D-Dimer 1401.08 H ABG pH POC ABG pO2 ABG pO2 ABG HCO3 ABG O2 Saturation ABG Base Excess ABG Oxyhemoglobin ABG Sodium ABG Chloride ABG Glucose Oxyhemoglobin Carboxyhemoglobin Sodium 131 L Potassium Chloride 95.5 L Carbon Dioxide BUN 20 H Creatinine 0.3 L Glucose 288 H POC Glucose Hemoglobin A1c Ferritin AST ALT Alkaline Phosphatase Lactate Dehydrogenase C-Reactive Protein Total Protein 6.0 L Albumin 3.1 L Arterial Blood Glucose Coronavirus (PCR) 05/02/21 05/02/21 05/02/21 07:53 11:45 15:25 WBC MCHC RDW Lymph % (Auto) Lymph # (Auto) Baso # (Auto) Seg Neutrophils % Seg Neuts % (Manual) Lymphocytes % (Manual) Seg Neutrophils # Seg Neutrophils # Man Lymphocytes # (Manual) D-Dimer ABG pH POC ABG pO2 ABG pO2 ABG HCO3 ABG O2 Saturation ABG Base Excess ABG Oxyhemoglobin ABG Sodium ABG Chloride ABG Glucose Oxyhemoglobin Carboxyhemoglobin Sodium Potassium Chloride Carbon Dioxide BUN Creatinine Glucose POC Glucose 180 H 228 H 275 H Hemoglobin A1c Ferritin AST ALT Alkaline Phosphatase Lactate Dehydrogenase C-Reactive Protein Total Protein Albumin Arterial Blood Glucose Coronavirus (PCR) 05/02/21 05/03/21 05/03/21 22:56 04:30 04:49 WBC MCHC RDW Lymph % (Auto) Lymph # (Auto) Baso # (Auto) Seg Neutrophils % Seg Neuts % (Manual) Lymphocytes % (Manual) Seg Neutrophils # Seg Neutrophils # Man Lymphocytes # (Manual) D-Dimer ABG pH 7.229 L POC ABG pO2 65.3 L ABG pO2 ABG HCO3 ABG O2 Saturation ABG Base Excess ABG Oxyhemoglobin 87.8 L ABG Sodium 133.0 L ABG Chloride 97.0 L ABG Glucose 403 H Oxyhemoglobin Carboxyhemoglobin Sodium 130 L Potassium Chloride 94.9 L Carbon Dioxide BUN 20 H Creatinine 0.5 L D Glucose 359 H POC Glucose 293 H Hemoglobin A1c Ferritin AST 54 H ALT 75 H Alkaline Phosphatase 138 H Lactate Dehydrogenase C-Reactive Protein Total Protein Albumin 3.6 L Arterial Blood Glucose 403 H Coronavirus (PCR) 05/03/21 05/03/21 05/03/21 05:27 11:26 17:57 WBC MCHC RDW Lymph % (Auto) Lymph # (Auto) Baso # (Auto) Seg Neutrophils % Seg Neuts % (Manual) Lymphocytes % (Manual) Seg Neutrophils # Seg Neutrophils # Man Lymphocytes # (Manual) D-Dimer ABG pH POC ABG pO2 ABG pO2 ABG HCO3 ABG O2 Saturation ABG Base Excess ABG Oxyhemoglobin ABG Sodium ABG Chloride ABG Glucose Oxyhemoglobin Carboxyhemoglobin Sodium Potassium Chloride Carbon Dioxide BUN Creatinine Glucose POC Glucose 361 H 297 H 226 H Hemoglobin A1c Ferritin AST ALT Alkaline Phosphatase Lactate Dehydrogenase C-Reactive Protein Total Protein Albumin Arterial Blood Glucose Coronavirus (PCR) 05/03/21 05/04/21 05/04/21 23:12 05:12 07:30 WBC MCHC RDW Lymph % (Auto) Lymph # (Auto) Baso # (Auto) Seg Neutrophils % Seg Neuts % (Manual) Lymphocytes % (Manual) Seg Neutrophils # Seg Neutrophils # Man Lymphocytes # (Manual) D-Dimer ABG pH POC ABG pO2 ABG pO2 ABG HCO3 ABG O2 Saturation ABG Base Excess ABG Oxyhemoglobin ABG Sodium ABG Chloride ABG Glucose Oxyhemoglobin Carboxyhemoglobin Sodium Potassium Chloride Carbon Dioxide BUN Creatinine Glucose POC Glucose 282 H 285 H 254 H Hemoglobin A1c Ferritin AST ALT Alkaline Phosphatase Lactate Dehydrogenase C-Reactive Protein Total Protein Albumin Arterial Blood Glucose Coronavirus (PCR) 05/04/21 05/04/21 05/04/21 08:58 11:45 16:07 WBC MCHC RDW Lymph % (Auto) Lymph # (Auto) Baso # (Auto) Seg Neutrophils % Seg Neuts % (Manual) Lymphocytes % (Manual) Seg Neutrophils # Seg Neutrophils # Man Lymphocytes # (Manual) D-Dimer ABG pH POC ABG pO2 ABG pO2 ABG HCO3 ABG O2 Saturation ABG Base Excess ABG Oxyhemoglobin ABG Sodium ABG Chloride ABG Glucose Oxyhemoglobin Carboxyhemoglobin Sodium 134 L Potassium Chloride Carbon Dioxide BUN 20 H Creatinine 0.3 L Glucose 267 H POC Glucose 244 H 297 H Hemoglobin A1c Ferritin AST ALT Alkaline Phosphatase Lactate Dehydrogenase C-Reactive Protein Total Protein 6.0 L Albumin 3.2 L Arterial Blood Glucose Coronavirus (PCR) 05/04/21 05/05/21 05/05/21 23:32 05:00 05:13 WBC MCHC RDW Lymph % (Auto) Lymph # (Auto) Baso # (Auto) Seg Neutrophils % Seg Neuts % (Manual) Lymphocytes % (Manual) Seg Neutrophils # Seg Neutrophils # Man Lymphocytes # (Manual) D-Dimer ABG pH POC ABG pO2 ABG pO2 ABG HCO3 ABG O2 Saturation ABG Base Excess ABG Oxyhemoglobin ABG Sodium ABG Chloride ABG Glucose Oxyhemoglobin Carboxyhemoglobin Sodium 132 L Potassium Chloride 96.4 L Carbon Dioxide BUN 22 H Creatinine 0.3 L Glucose 228 H POC Glucose 154 H 260 H Hemoglobin A1c Ferritin AST ALT 67 H Alkaline Phosphatase Lactate Dehydrogenase C-Reactive Protein Total Protein 6.1 L Albumin 3.2 L Arterial Blood Glucose Coronavirus (PCR) 05/05/21 05/05/21 05/05/21 11:32 17:49 23:07 WBC MCHC RDW Lymph % (Auto) Lymph # (Auto) Baso # (Auto) Seg Neutrophils % Seg Neuts % (Manual) Lymphocytes % (Manual) Seg Neutrophils # Seg Neutrophils # Man Lymphocytes # (Manual) D-Dimer ABG pH POC ABG pO2 ABG pO2 ABG HCO3 ABG O2 Saturation ABG Base Excess ABG Oxyhemoglobin ABG Sodium ABG Chloride ABG Glucose Oxyhemoglobin Carboxyhemoglobin Sodium Potassium Chloride Carbon Dioxide BUN Creatinine Glucose POC Glucose 279 H 308 H 213 H Hemoglobin A1c Ferritin AST ALT Alkaline Phosphatase Lactate Dehydrogenase C-Reactive Protein Total Protein Albumin Arterial Blood Glucose Coronavirus (PCR) 05/06/21 05/06/21 05/06/21 05:00 05:00 05:20 WBC MCHC RDW 16.8 H Lymph % (Auto) Lymph # (Auto) Baso # (Auto) Seg Neutrophils % Seg Neuts % (Manual) 99.0 H Lymphocytes % (Manual) Seg Neutrophils # Seg Neutrophils # Man 10.9 H Lymphocytes # (Manual) 0.0 L D-Dimer ABG pH POC ABG pO2 ABG pO2 ABG HCO3 ABG O2 Saturation ABG Base Excess ABG Oxyhemoglobin ABG Sodium ABG Chloride ABG Glucose Oxyhemoglobin Carboxyhemoglobin Sodium 133 L Potassium Chloride Carbon Dioxide BUN 21 H Creatinine 0.3 L Glucose 259 H POC Glucose 308 H Hemoglobin A1c Ferritin AST ALT Alkaline Phosphatase Lactate Dehydrogenase C-Reactive Protein Total Protein Albumin 3.2 L Arterial Blood Glucose Coronavirus (PCR) 05/06/21 05/06/21 05/06/21 11:24 17:54 21:32 WBC MCHC RDW Lymph % (Auto) Lymph # (Auto) Baso # (Auto) Seg Neutrophils % Seg Neuts % (Manual) Lymphocytes % (Manual) Seg Neutrophils # Seg Neutrophils # Man Lymphocytes # (Manual) D-Dimer ABG pH POC ABG pO2 ABG pO2 ABG HCO3 ABG O2 Saturation ABG Base Excess ABG Oxyhemoglobin ABG Sodium ABG Chloride ABG Glucose Oxyhemoglobin Carboxyhemoglobin Sodium Potassium Chloride Carbon Dioxide BUN Creatinine Glucose POC Glucose 262 H 124 H 246 H Hemoglobin A1c Ferritin AST ALT Alkaline Phosphatase Lactate Dehydrogenase C-Reactive Protein Total Protein Albumin Arterial Blood Glucose Coronavirus (PCR) 05/06/21 05/07/21 05/07/21 23:10 04:54 04:54 WBC MCHC RDW Lymph % (Auto) Lymph # (Auto) Baso # (Auto) Seg Neutrophils % Seg Neuts % (Manual) Lymphocytes % (Manual) Seg Neutrophils # Seg Neutrophils # Man Lymphocytes # (Manual) D-Dimer 1609.28 H ABG pH POC ABG pO2 ABG pO2 ABG HCO3 ABG O2 Saturation ABG Base Excess ABG Oxyhemoglobin ABG Sodium ABG Chloride ABG Glucose Oxyhemoglobin Carboxyhemoglobin Sodium 136 L Potassium Chloride Carbon Dioxide BUN 23 H Creatinine 0.3 L Glucose 110 H POC Glucose 249 H Hemoglobin A1c Ferritin AST ALT Alkaline Phosphatase Lactate Dehydrogenase C-Reactive Protein Total Protein 6.2 L Albumin 3.0 L Arterial Blood Glucose Coronavirus (PCR) 05/07/21 05/07/21 05/07/21 04:54 04:54 11:41 WBC MCHC RDW Lymph % (Auto) Lymph # (Auto) Baso # (Auto) Seg Neutrophils % Seg Neuts % (Manual) Lymphocytes % (Manual) Seg Neutrophils # Seg Neutrophils # Man Lymphocytes # (Manual) D-Dimer ABG pH POC ABG pO2 ABG pO2 ABG HCO3 ABG O2 Saturation ABG Base Excess ABG Oxyhemoglobin ABG Sodium ABG Chloride ABG Glucose Oxyhemoglobin Carboxyhemoglobin Sodium Potassium Chloride Carbon Dioxide BUN Creatinine Glucose POC Glucose 118 H Hemoglobin A1c Ferritin 296.1 H AST ALT Alkaline Phosphatase Lactate Dehydrogenase 724 H C-Reactive Protein Total Protein Albumin Arterial Blood Glucose Coronavirus (PCR) 05/07/21 05/07/21 05/08/21 16:43 22:34 06:44 WBC MCHC RDW Lymph % (Auto) Lymph # (Auto) Baso # (Auto) Seg Neutrophils % Seg Neuts % (Manual) Lymphocytes % (Manual) Seg Neutrophils # Seg Neutrophils # Man Lymphocytes # (Manual) D-Dimer ABG pH POC ABG pO2 ABG pO2 ABG HCO3 ABG O2 Saturation ABG Base Excess ABG Oxyhemoglobin ABG Sodium ABG Chloride ABG Glucose Oxyhemoglobin Carboxyhemoglobin Sodium Potassium Chloride Carbon Dioxide BUN Creatinine Glucose POC Glucose 159 H 233 H 235 H Hemoglobin A1c Ferritin AST ALT Alkaline Phosphatase Lactate Dehydrogenase C-Reactive Protein Total Protein Albumin Arterial Blood Glucose Coronavirus (PCR) 05/08/21 05/08/21 05/08/21 07:49 11:56 17:13 WBC MCHC RDW Lymph % (Auto) Lymph # (Auto) Baso # (Auto) Seg Neutrophils % Seg Neuts % (Manual) Lymphocytes % (Manual) Seg Neutrophils # Seg Neutrophils # Man Lymphocytes # (Manual) D-Dimer ABG pH POC ABG pO2 ABG pO2 ABG HCO3 ABG O2 Saturation ABG Base Excess ABG Oxyhemoglobin ABG Sodium ABG Chloride ABG Glucose Oxyhemoglobin Carboxyhemoglobin Sodium Potassium Chloride Carbon Dioxide BUN Creatinine Glucose POC Glucose 219 H 184 H 182 H Hemoglobin A1c Ferritin AST ALT Alkaline Phosphatase Lactate Dehydrogenase C-Reactive Protein Total Protein Albumin Arterial Blood Glucose Coronavirus (PCR) 05/08/21 05/09/21 05/09/21 23:35 05:20 05:20 WBC MCHC RDW Lymph % (Auto) Lymph # (Auto) Baso # (Auto) Seg Neutrophils % Seg Neuts % (Manual) Lymphocytes % (Manual) Seg Neutrophils # Seg Neutrophils # Man Lymphocytes # (Manual) D-Dimer 1003.87 H ABG pH POC ABG pO2 ABG pO2 ABG HCO3 ABG O2 Saturation ABG Base Excess ABG Oxyhemoglobin ABG Sodium ABG Chloride ABG Glucose Oxyhemoglobin Carboxyhemoglobin Sodium Potassium Chloride Carbon Dioxide BUN Creatinine Glucose POC Glucose 198 H Hemoglobin A1c Ferritin 378.7 H AST ALT Alkaline Phosphatase Lactate Dehydrogenase C-Reactive Protein Total Protein Albumin Arterial Blood Glucose Coronavirus (PCR) 05/09/21 05/09/21 05/09/21 05:20 06:04 12:53 WBC MCHC RDW Lymph % (Auto) Lymph # (Auto) Baso # (Auto) Seg Neutrophils % Seg Neuts % (Manual) Lymphocytes % (Manual) Seg Neutrophils # Seg Neutrophils # Man Lymphocytes # (Manual) D-Dimer ABG pH POC ABG pO2 ABG pO2 ABG HCO3 ABG O2 Saturation ABG Base Excess ABG Oxyhemoglobin ABG Sodium ABG Chloride ABG Glucose Oxyhemoglobin Carboxyhemoglobin Sodium Potassium Chloride Carbon Dioxide BUN Creatinine Glucose POC Glucose 159 H 180 H Hemoglobin A1c Ferritin AST ALT Alkaline Phosphatase Lactate Dehydrogenase 558 H C-Reactive Protein 2.40 H Total Protein Albumin Arterial Blood Glucose Coronavirus (PCR) 05/09/21 05/09/21 05/10/21 16:43 21:27 10:18 WBC MCHC RDW Lymph % (Auto) Lymph # (Auto) Baso # (Auto) Seg Neutrophils % Seg Neuts % (Manual) Lymphocytes % (Manual) Seg Neutrophils # Seg Neutrophils # Man Lymphocytes # (Manual) D-Dimer ABG pH POC ABG pO2 ABG pO2 ABG HCO3 ABG O2 Saturation ABG Base Excess ABG Oxyhemoglobin ABG Sodium ABG Chloride ABG Glucose Oxyhemoglobin Carboxyhemoglobin Sodium Potassium Chloride Carbon Dioxide BUN Creatinine Glucose POC Glucose 212 H 285 H 261 H Hemoglobin A1c Ferritin AST ALT Alkaline Phosphatase Lactate Dehydrogenase C-Reactive Protein Total Protein Albumin Arterial Blood Glucose Coronavirus (PCR) 05/10/21 05/10/21 05/11/21 17:58 18:02 00:29 WBC MCHC RDW Lymph % (Auto) Lymph # (Auto) Baso # (Auto) Seg Neutrophils % Seg Neuts % (Manual) Lymphocytes % (Manual) Seg Neutrophils # Seg Neutrophils # Man Lymphocytes # (Manual) D-Dimer ABG pH POC ABG pO2 ABG pO2 ABG HCO3 ABG O2 Saturation ABG Base Excess ABG Oxyhemoglobin ABG Sodium ABG Chloride ABG Glucose Oxyhemoglobin Carboxyhemoglobin Sodium Potassium Chloride Carbon Dioxide BUN Creatinine Glucose POC Glucose 213 H 179 H 149 H Hemoglobin A1c Ferritin AST ALT Alkaline Phosphatase Lactate Dehydrogenase C-Reactive Protein Total Protein Albumin Arterial Blood Glucose Coronavirus (PCR) 05/11/21 05/11/21 05/11/21 05:22 11:32 17:00 WBC 14.9 H MCHC RDW 18.9 H Lymph % (Auto) 4.9 L Lymph # (Auto) 0.7 L Baso # (Auto) 0.2 H Seg Neutrophils % Seg Neuts % (Manual) Lymphocytes % (Manual) Seg Neutrophils # 13.3 H Seg Neutrophils # Man Lymphocytes # (Manual) D-Dimer ABG pH POC ABG pO2 ABG pO2 ABG HCO3 ABG O2 Saturation ABG Base Excess ABG Oxyhemoglobin ABG Sodium ABG Chloride ABG Glucose Oxyhemoglobin Carboxyhemoglobin Sodium Potassium Chloride Carbon Dioxide BUN Creatinine Glucose POC Glucose 162 H 179 H Hemoglobin A1c Ferritin AST ALT Alkaline Phosphatase Lactate Dehydrogenase C-Reactive Protein Total Protein Albumin Arterial Blood Glucose Coronavirus (PCR) 05/11/21 05/11/21 05/11/21 17:00 17:33 22:03 WBC MCHC RDW Lymph % (Auto) Lymph # (Auto) Baso # (Auto) Seg Neutrophils % Seg Neuts % (Manual) Lymphocytes % (Manual) Seg Neutrophils # Seg Neutrophils # Man Lymphocytes # (Manual) D-Dimer ABG pH POC ABG pO2 ABG pO2 ABG HCO3 ABG O2 Saturation ABG Base Excess ABG Oxyhemoglobin ABG Sodium ABG Chloride ABG Glucose Oxyhemoglobin Carboxyhemoglobin Sodium 135 L Potassium Chloride 97.3 L Carbon Dioxide BUN 21 H Creatinine 0.3 L Glucose 133 H POC Glucose 140 H 282 H Hemoglobin A1c Ferritin AST ALT 60 H Alkaline Phosphatase Lactate Dehydrogenase C-Reactive Protein Total Protein Albumin 3.1 L Arterial Blood Glucose Coronavirus (PCR) 05/12/21 05/12/21 05/12/21 04:05 04:05 04:05 WBC MCHC RDW 18.4 H Lymph % (Auto) Lymph # (Auto) Baso # (Auto) Seg Neutrophils % Seg Neuts % (Manual) 94.0 H Lymphocytes % (Manual) 4.0 L Seg Neutrophils # Seg Neutrophils # Man Lymphocytes # (Manual) 0.3 L D-Dimer ABG pH POC ABG pO2 ABG pO2 ABG HCO3 ABG O2 Saturation ABG Base Excess ABG Oxyhemoglobin ABG Sodium ABG Chloride ABG Glucose Oxyhemoglobin Carboxyhemoglobin Sodium 136 L Potassium Chloride Carbon Dioxide BUN 18 H Creatinine 0.2 L Glucose 142 H POC Glucose Hemoglobin A1c Ferritin 350.7 H AST ALT Alkaline Phosphatase Lactate Dehydrogenase 546 H C-Reactive Protein Total Protein 6.1 L Albumin 3.0 L Arterial Blood Glucose Coronavirus (PCR) 05/12/21 05/12/21 05/12/21 05:11 11:17 16:27 WBC MCHC RDW Lymph % (Auto) Lymph # (Auto) Baso # (Auto) Seg Neutrophils % Seg Neuts % (Manual) Lymphocytes % (Manual) Seg Neutrophils # Seg Neutrophils # Man Lymphocytes # (Manual) D-Dimer ABG pH POC ABG pO2 ABG pO2 ABG HCO3 ABG O2 Saturation ABG Base Excess ABG Oxyhemoglobin ABG Sodium ABG Chloride ABG Glucose Oxyhemoglobin Carboxyhemoglobin Sodium Potassium Chloride Carbon Dioxide BUN Creatinine Glucose POC Glucose 152 H 190 H 261 H Hemoglobin A1c Ferritin AST ALT Alkaline Phosphatase Lactate Dehydrogenase C-Reactive Protein Total Protein Albumin Arterial Blood Glucose Coronavirus (PCR) 05/12/21 05/13/21 05/13/21 20:55 11:08 21:41 WBC MCHC RDW Lymph % (Auto) Lymph # (Auto) Baso # (Auto) Seg Neutrophils % Seg Neuts % (Manual) Lymphocytes % (Manual) Seg Neutrophils # Seg Neutrophils # Man Lymphocytes # (Manual) D-Dimer ABG pH POC ABG pO2 ABG pO2 ABG HCO3 ABG O2 Saturation ABG Base Excess ABG Oxyhemoglobin ABG Sodium ABG Chloride ABG Glucose Oxyhemoglobin Carboxyhemoglobin Sodium Potassium Chloride Carbon Dioxide BUN Creatinine Glucose POC Glucose 231 H 106 H 174 H Hemoglobin A1c Ferritin AST ALT Alkaline Phosphatase Lactate Dehydrogenase C-Reactive Protein Total Protein Albumin Arterial Blood Glucose Coronavirus (PCR) 05/14/21 05/14/21 05/14/21 00:53 02:23 06:06 WBC MCHC RDW Lymph % (Auto) Lymph # (Auto) Baso # (Auto) Seg Neutrophils % Seg Neuts % (Manual) Lymphocytes % (Manual) Seg Neutrophils # Seg Neutrophils # Man Lymphocytes # (Manual) D-Dimer ABG pH POC ABG pO2 ABG pO2 130.3 H ABG HCO3 30.6 H ABG O2 Saturation ABG Base Excess 4.9 H ABG Oxyhemoglobin ABG Sodium ABG Chloride ABG Glucose Oxyhemoglobin Carboxyhemoglobin Sodium Potassium Chloride Carbon Dioxide BUN Creatinine Glucose POC Glucose 229 H 119 H Hemoglobin A1c Ferritin AST ALT Alkaline Phosphatase Lactate Dehydrogenase C-Reactive Protein Total Protein Albumin Arterial Blood Glucose Coronavirus (PCR) 05/14/21 05/14/21 05/14/21 07:13 07:13 07:13 WBC MCHC RDW Lymph % (Auto) Lymph # (Auto) Baso # (Auto) Seg Neutrophils % Seg Neuts % (Manual) Lymphocytes % (Manual) Seg Neutrophils # Seg Neutrophils # Man Lymphocytes # (Manual) D-Dimer 712.80 H ABG pH POC ABG pO2 ABG pO2 ABG HCO3 ABG O2 Saturation ABG Base Excess ABG Oxyhemoglobin ABG Sodium ABG Chloride ABG Glucose Oxyhemoglobin Carboxyhemoglobin Sodium 133 L Potassium Chloride 95.5 L Carbon Dioxide 32 H BUN Creatinine 0.2 L Glucose 137 H POC Glucose Hemoglobin A1c Ferritin 283.5 H AST ALT 63 H Alkaline Phosphatase Lactate Dehydrogenase 563 H C-Reactive Protein Total Protein 6.1 L Albumin 3.0 L Arterial Blood Glucose Coronavirus (PCR) 05/14/21 05/14/21 05/14/21 12:21 15:33 21:50 WBC MCHC RDW Lymph % (Auto) Lymph # (Auto) Baso # (Auto) Seg Neutrophils % Seg Neuts % (Manual) Lymphocytes % (Manual) Seg Neutrophils # Seg Neutrophils # Man Lymphocytes # (Manual) D-Dimer ABG pH POC ABG pO2 ABG pO2 ABG HCO3 ABG O2 Saturation ABG Base Excess ABG Oxyhemoglobin ABG Sodium ABG Chloride ABG Glucose Oxyhemoglobin Carboxyhemoglobin Sodium Potassium Chloride Carbon Dioxide BUN Creatinine Glucose POC Glucose 143 H 204 H 202 H Hemoglobin A1c Ferritin AST ALT Alkaline Phosphatase Lactate Dehydrogenase C-Reactive Protein Total Protein Albumin Arterial Blood Glucose Coronavirus (PCR) 05/15/21 05/15/21 05/15/21 05:05 11:12 16:39 WBC MCHC RDW Lymph % (Auto) Lymph # (Auto) Baso # (Auto) Seg Neutrophils % Seg Neuts % (Manual) Lymphocytes % (Manual) Seg Neutrophils # Seg Neutrophils # Man Lymphocytes # (Manual) D-Dimer ABG pH POC ABG pO2 ABG pO2 ABG HCO3 ABG O2 Saturation ABG Base Excess ABG Oxyhemoglobin ABG Sodium ABG Chloride ABG Glucose Oxyhemoglobin Carboxyhemoglobin Sodium Potassium Chloride Carbon Dioxide BUN Creatinine Glucose POC Glucose 125 H 201 H 241 H Hemoglobin A1c Ferritin AST ALT Alkaline Phosphatase Lactate Dehydrogenase C-Reactive Protein Total Protein Albumin Arterial Blood Glucose Coronavirus (PCR) 05/15/21 05/16/21 05/16/21 21:31 05:04 10:40 WBC MCHC RDW Lymph % (Auto) Lymph # (Auto) Baso # (Auto) Seg Neutrophils % Seg Neuts % (Manual) Lymphocytes % (Manual) Seg Neutrophils # Seg Neutrophils # Man Lymphocytes # (Manual) D-Dimer ABG pH POC ABG pO2 ABG pO2 ABG HCO3 ABG O2 Saturation ABG Base Excess ABG Oxyhemoglobin ABG Sodium ABG Chloride ABG Glucose Oxyhemoglobin Carboxyhemoglobin Sodium Potassium Chloride Carbon Dioxide BUN Creatinine Glucose POC Glucose 234 H 123 H 231 H Hemoglobin A1c Ferritin AST ALT Alkaline Phosphatase Lactate Dehydrogenase C-Reactive Protein Total Protein Albumin Arterial Blood Glucose Coronavirus (PCR) 05/16/21 05/16/21 05/17/21 18:23 21:29 06:20 WBC MCHC RDW 18.8 H Lymph % (Auto) 10.2 L Lymph # (Auto) 0.8 L Baso # (Auto) Seg Neutrophils % 85.8 H Seg Neuts % (Manual) Lymphocytes % (Manual) Seg Neutrophils # Seg Neutrophils # Man Lymphocytes # (Manual) D-Dimer ABG pH POC ABG pO2 ABG pO2 ABG HCO3 ABG O2 Saturation ABG Base Excess ABG Oxyhemoglobin ABG Sodium ABG Chloride ABG Glucose Oxyhemoglobin Carboxyhemoglobin Sodium Potassium Chloride Carbon Dioxide BUN Creatinine Glucose POC Glucose 266 H 234 H Hemoglobin A1c Ferritin AST ALT Alkaline Phosphatase Lactate Dehydrogenase C-Reactive Protein Total Protein Albumin Arterial Blood Glucose Coronavirus (PCR) 05/17/21 05/17/21 05/17/21 06:20 11:06 16:36 WBC MCHC RDW Lymph % (Auto) Lymph # (Auto) Baso # (Auto) Seg Neutrophils % Seg Neuts % (Manual) Lymphocytes % (Manual) Seg Neutrophils # Seg Neutrophils # Man Lymphocytes # (Manual) D-Dimer ABG pH POC ABG pO2 ABG pO2 ABG HCO3 ABG O2 Saturation ABG Base Excess ABG Oxyhemoglobin ABG Sodium ABG Chloride ABG Glucose Oxyhemoglobin Carboxyhemoglobin Sodium Potassium Chloride Carbon Dioxide 33 H BUN Creatinine 0.2 L Glucose 101 H POC Glucose 209 H 180 H Hemoglobin A1c Ferritin AST ALT Alkaline Phosphatase Lactate Dehydrogenase C-Reactive Protein Total Protein Albumin Arterial Blood Glucose Coronavirus (PCR) 05/17/21 05/18/21 05/18/21 21:06 12:00 15:06 WBC MCHC RDW Lymph % (Auto) Lymph # (Auto) Baso # (Auto) Seg Neutrophils % Seg Neuts % (Manual) Lymphocytes % (Manual) Seg Neutrophils # Seg Neutrophils # Man Lymphocytes # (Manual) D-Dimer 874.02 H ABG pH POC ABG pO2 ABG pO2 ABG HCO3 ABG O2 Saturation ABG Base Excess ABG Oxyhemoglobin ABG Sodium ABG Chloride ABG Glucose Oxyhemoglobin Carboxyhemoglobin Sodium Potassium Chloride Carbon Dioxide BUN Creatinine Glucose POC Glucose 256 H 139 H Hemoglobin A1c Ferritin AST ALT Alkaline Phosphatase Lactate Dehydrogenase C-Reactive Protein Total Protein Albumin Arterial Blood Glucose Coronavirus (PCR) 05/18/21 05/18/2121 15:06 15:06 16:08 WBC MCHC RDW Lymph % (Auto) Lymph # (Auto) Baso # (Auto) Seg Neutrophils % Seg Neuts % (Manual) Lymphocytes % (Manual) Seg Neutrophils # Seg Neutrophils # Man Lymphocytes # (Manual) D-Dimer ABG pH POC ABG pO2 ABG pO2 ABG HCO3 ABG O2 Saturation ABG Base Excess ABG Oxyhemoglobin ABG Sodium ABG Chloride ABG Glucose Oxyhemoglobin Carboxyhemoglobin Sodium Potassium Chloride Carbon Dioxide BUN Creatinine Glucose POC Glucose 178 H Hemoglobin A1c Ferritin 289.6 H AST ALT Alkaline Phosphatase Lactate Dehydrogenase 605 H C-Reactive Protein Total Protein Albumin Arterial Blood Glucose Coronavirus (PCR) 05/18/21 05/19/21 05/19/21 21:22 11:57 15:26 WBC MCHC RDW Lymph % (Auto) Lymph # (Auto) Baso # (Auto) Seg Neutrophils % Seg Neuts % (Manual) Lymphocytes % (Manual) Seg Neutrophils # Seg Neutrophils # Man Lymphocytes # (Manual) D-Dimer ABG pH POC ABG pO2 ABG pO2 ABG HCO3 ABG O2 Saturation ABG Base Excess ABG Oxyhemoglobin ABG Sodium ABG Chloride ABG Glucose Oxyhemoglobin Carboxyhemoglobin Sodium Potassium Chloride Carbon Dioxide BUN Creatinine Glucose POC Glucose 241 H 201 H 209 H Hemoglobin A1c Ferritin AST ALT Alkaline Phosphatase Lactate Dehydrogenase C-Reactive Protein Total Protein Albumin Arterial Blood Glucose Coronavirus (PCR) 05/19/21 05/20/21 05/20/21 20:59 07:38 08:01 WBC MCHC RDW 19.7 H Lymph % (Auto) 8.3 L Lymph # (Auto) 0.8 L Baso # (Auto) Seg Neutrophils % 88.6 H Seg Neuts % (Manual) Lymphocytes % (Manual) Seg Neutrophils # 8.4 H Seg Neutrophils # Man Lymphocytes # (Manual) D-Dimer ABG pH POC ABG pO2 ABG pO2 ABG HCO3 ABG O2 Saturation ABG Base Excess ABG Oxyhemoglobin ABG Sodium ABG Chloride ABG Glucose Oxyhemoglobin Carboxyhemoglobin Sodium Potassium Chloride Carbon Dioxide BUN Creatinine Glucose POC Glucose 226 H 130 H Hemoglobin A1c Ferritin AST ALT Alkaline Phosphatase Lactate Dehydrogenase C-Reactive Protein Total Protein Albumin Arterial Blood Glucose Coronavirus (PCR) 05/20/21 05/20/21 05/20/21 08:01 11:00 16:43 WBC MCHC RDW Lymph % (Auto) Lymph # (Auto) Baso # (Auto) Seg Neutrophils % Seg Neuts % (Manual) Lymphocytes % (Manual) Seg Neutrophils # Seg Neutrophils # Man Lymphocytes # (Manual) D-Dimer ABG pH POC ABG pO2 ABG pO2 ABG HCO3 ABG O2 Saturation ABG Base Excess ABG Oxyhemoglobin ABG Sodium ABG Chloride ABG Glucose Oxyhemoglobin Carboxyhemoglobin Sodium Potassium Chloride Carbon Dioxide BUN 18 H Creatinine 0.2 L Glucose 132 H POC Glucose 237 H 240 H Hemoglobin A1c Ferritin AST ALT Alkaline Phosphatase Lactate Dehydrogenase C-Reactive Protein Total Protein Albumin Arterial Blood Glucose Coronavirus (PCR) 05/20/21 05/21/21 05/21/21 21:21 07:35 11:32 WBC MCHC RDW Lymph % (Auto) Lymph # (Auto) Baso # (Auto) Seg Neutrophils % Seg Neuts % (Manual) Lymphocytes % (Manual) Seg Neutrophils # Seg Neutrophils # Man Lymphocytes # (Manual) D-Dimer ABG pH POC ABG pO2 ABG pO2 ABG HCO3 ABG O2 Saturation ABG Base Excess ABG Oxyhemoglobin ABG Sodium ABG Chloride ABG Glucose Oxyhemoglobin Carboxyhemoglobin Sodium Potassium Chloride Carbon Dioxide BUN Creatinine Glucose POC Glucose 241 H 162 H 171 H Hemoglobin A1c Ferritin AST ALT Alkaline Phosphatase Lactate Dehydrogenase C-Reactive Protein Total Protein Albumin Arterial Blood Glucose Coronavirus (PCR) 05/21/21 05/21/21 05/22/21 16:22 20:43 05:14 WBC MCHC RDW Lymph % (Auto) Lymph # (Auto) Baso # (Auto) Seg Neutrophils % Seg Neuts % (Manual) Lymphocytes % (Manual) Seg Neutrophils # Seg Neutrophils # Man Lymphocytes # (Manual) D-Dimer ABG pH POC ABG pO2 ABG pO2 ABG HCO3 ABG O2 Saturation ABG Base Excess ABG Oxyhemoglobin ABG Sodium ABG Chloride ABG Glucose Oxyhemoglobin Carboxyhemoglobin Sodium Potassium Chloride Carbon Dioxide BUN Creatinine Glucose POC Glucose 244 H 299 H 140 H Hemoglobin A1c Ferritin AST ALT Alkaline Phosphatase Lactate Dehydrogenase C-Reactive Protein Total Protein Albumin Arterial Blood Glucose Coronavirus (PCR) 05/22/21 05/22/21 05/22/21 08:45 11:54 16:15 WBC MCHC RDW Lymph % (Auto) Lymph # (Auto) Baso # (Auto) Seg Neutrophils % Seg Neuts % (Manual) Lymphocytes % (Manual) Seg Neutrophils # Seg Neutrophils # Man Lymphocytes # (Manual) D-Dimer ABG pH POC ABG pO2 ABG pO2 ABG HCO3 ABG O2 Saturation ABG Base Excess ABG Oxyhemoglobin ABG Sodium ABG Chloride ABG Glucose Oxyhemoglobin Carboxyhemoglobin Sodium Potassium Chloride Carbon Dioxide BUN Creatinine Glucose POC Glucose 133 H 265 H 221 H Hemoglobin A1c Ferritin AST ALT Alkaline Phosphatase Lactate Dehydrogenase C-Reactive Protein Total Protein Albumin Arterial Blood Glucose Coronavirus (PCR) 05/22/21 05/23/21 05/23/21 21:43 08:20 09:50 WBC MCHC RDW Lymph % (Auto) Lymph # (Auto) Baso # (Auto) Seg Neutrophils % Seg Neuts % (Manual) Lymphocytes % (Manual) Seg Neutrophils # Seg Neutrophils # Man Lymphocytes # (Manual) D-Dimer 910.38 H ABG pH POC ABG pO2 ABG pO2 ABG HCO3 ABG O2 Saturation ABG Base Excess ABG Oxyhemoglobin ABG Sodium ABG Chloride ABG Glucose Oxyhemoglobin Carboxyhemoglobin Sodium Potassium Chloride Carbon Dioxide BUN Creatinine Glucose POC Glucose 262 H 140 H Hemoglobin A1c Ferritin AST ALT Alkaline Phosphatase Lactate Dehydrogenase C-Reactive Protein Total Protein Albumin Arterial Blood Glucose Coronavirus (PCR) 05/23/21 05/23/21 05/23/21 09:50 09:50 10:52 WBC MCHC RDW Lymph % (Auto) Lymph # (Auto) Baso # (Auto) Seg Neutrophils % Seg Neuts % (Manual) Lymphocytes % (Manual) Seg Neutrophils # Seg Neutrophils # Man Lymphocytes # (Manual) D-Dimer ABG pH POC ABG pO2 ABG pO2 ABG HCO3 ABG O2 Saturation ABG Base Excess ABG Oxyhemoglobin ABG Sodium ABG Chloride ABG Glucose Oxyhemoglobin Carboxyhemoglobin Sodium Potassium Chloride Carbon Dioxide BUN Creatinine Glucose POC Glucose 241 H Hemoglobin A1c Ferritin 244.9 H AST ALT Alkaline Phosphatase Lactate Dehydrogenase 584 H C-Reactive Protein Total Protein Albumin Arterial Blood Glucose Coronavirus (PCR) 05/23/21 05/23/21 05/24/21 17:24 21:52 07:44 WBC MCHC RDW Lymph % (Auto) Lymph # (Auto) Baso # (Auto) Seg Neutrophils % Seg Neuts % (Manual) Lymphocytes % (Manual) Seg Neutrophils # Seg Neutrophils # Man Lymphocytes # (Manual) D-Dimer ABG pH POC ABG pO2 ABG pO2 ABG HCO3 ABG O2 Saturation ABG Base Excess ABG Oxyhemoglobin ABG Sodium ABG Chloride ABG Glucose Oxyhemoglobin Carboxyhemoglobin Sodium Potassium Chloride Carbon Dioxide BUN Creatinine Glucose POC Glucose 197 H 289 H 161 H Hemoglobin A1c Ferritin AST ALT Alkaline Phosphatase Lactate Dehydrogenase C-Reactive Protein Total Protein Albumin Arterial Blood Glucose Coronavirus (PCR) 05/24/21 05/24/21 05/24/21 11:17 17:51 21:26 WBC MCHC RDW Lymph % (Auto) Lymph # (Auto) Baso # (Auto) Seg Neutrophils % Seg Neuts % (Manual) Lymphocytes % (Manual) Seg Neutrophils # Seg Neutrophils # Man Lymphocytes # (Manual) D-Dimer ABG pH POC ABG pO2 ABG pO2 ABG HCO3 ABG O2 Saturation ABG Base Excess ABG Oxyhemoglobin ABG Sodium ABG Chloride ABG Glucose Oxyhemoglobin Carboxyhemoglobin Sodium Potassium Chloride Carbon Dioxide BUN Creatinine Glucose POC Glucose 308 H 175 H 198 H Hemoglobin A1c Ferritin AST ALT Alkaline Phosphatase Lactate Dehydrogenase C-Reactive Protein Total Protein Albumin Arterial Blood Glucose Coronavirus (PCR) 05/25/21 05/25/21 05/25/21 08:14 11:13 17:13 WBC MCHC RDW Lymph % (Auto) Lymph # (Auto) Baso # (Auto) Seg Neutrophils % Seg Neuts % (Manual) Lymphocytes % (Manual) Seg Neutrophils # Seg Neutrophils # Man Lymphocytes # (Manual) D-Dimer ABG pH POC ABG pO2 ABG pO2 ABG HCO3 ABG O2 Saturation ABG Base Excess ABG Oxyhemoglobin ABG Sodium ABG Chloride ABG Glucose Oxyhemoglobin Carboxyhemoglobin Sodium Potassium Chloride Carbon Dioxide BUN Creatinine Glucose POC Glucose 203 H 339 H 235 H Hemoglobin A1c Ferritin AST ALT Alkaline Phosphatase Lactate Dehydrogenase C-Reactive Protein Total Protein Albumin Arterial Blood Glucose Coronavirus (PCR) 05/25/21 05/26/21 05/26/21 21:03 07:33 11:19 WBC MCHC RDW Lymph % (Auto) Lymph # (Auto) Baso # (Auto) Seg Neutrophils % Seg Neuts % (Manual) Lymphocytes % (Manual) Seg Neutrophils # Seg Neutrophils # Man Lymphocytes # (Manual) D-Dimer ABG pH POC ABG pO2 ABG pO2 ABG HCO3 ABG O2 Saturation ABG Base Excess ABG Oxyhemoglobin ABG Sodium ABG Chloride ABG Glucose Oxyhemoglobin Carboxyhemoglobin Sodium Potassium Chloride Carbon Dioxide BUN Creatinine Glucose POC Glucose 263 H 156 H 288 H Hemoglobin A1c Ferritin AST ALT Alkaline Phosphatase Lactate Dehydrogenase C-Reactive Protein Total Protein Albumin Arterial Blood Glucose Coronavirus (PCR) 05/26/21 05/26/21 05/27/21 16:26 20:55 07:38 WBC MCHC RDW Lymph % (Auto) Lymph # (Auto) Baso # (Auto) Seg Neutrophils % Seg Neuts % (Manual) Lymphocytes % (Manual) Seg Neutrophils # Seg Neutrophils # Man Lymphocytes # (Manual) D-Dimer ABG pH POC ABG pO2 ABG pO2 ABG HCO3 ABG O2 Saturation ABG Base Excess ABG Oxyhemoglobin ABG Sodium ABG Chloride ABG Glucose Oxyhemoglobin Carboxyhemoglobin Sodium Potassium Chloride Carbon Dioxide BUN Creatinine Glucose POC Glucose 286 H 293 H 115 H Hemoglobin A1c Ferritin AST ALT Alkaline Phosphatase Lactate Dehydrogenase C-Reactive Protein Total Protein Albumin Arterial Blood Glucose Coronavirus (PCR) 05/27/21 05/27/21 05/27/21 11:46 15:58 21:02 WBC MCHC RDW Lymph % (Auto) Lymph # (Auto) Baso # (Auto) Seg Neutrophils % Seg Neuts % (Manual) Lymphocytes % (Manual) Seg Neutrophils # Seg Neutrophils # Man Lymphocytes # (Manual) D-Dimer ABG pH POC ABG pO2 ABG pO2 ABG HCO3 ABG O2 Saturation ABG Base Excess ABG Oxyhemoglobin ABG Sodium ABG Chloride ABG Glucose Oxyhemoglobin Carboxyhemoglobin Sodium Potassium Chloride Carbon Dioxide BUN Creatinine Glucose POC Glucose 260 H 318 H 246 H Hemoglobin A1c Ferritin AST ALT Alkaline Phosphatase Lactate Dehydrogenase C-Reactive Protein Total Protein Albumin Arterial Blood Glucose Coronavirus (PCR) 05/28/21 05/28/21 05/28/21 07:34 11:31 16:36 WBC MCHC RDW Lymph % (Auto) Lymph # (Auto) Baso # (Auto) Seg Neutrophils % Seg Neuts % (Manual) Lymphocytes % (Manual) Seg Neutrophils # Seg Neutrophils # Man Lymphocytes # (Manual) D-Dimer ABG pH POC ABG pO2 ABG pO2 ABG HCO3 ABG O2 Saturation ABG Base Excess ABG Oxyhemoglobin ABG Sodium ABG Chloride ABG Glucose Oxyhemoglobin Carboxyhemoglobin Sodium Potassium Chloride Carbon Dioxide BUN Creatinine Glucose POC Glucose 185 H 297 H 183 H Hemoglobin A1c Ferritin AST ALT Alkaline Phosphatase Lactate Dehydrogenase C-Reactive Protein Total Protein Albumin Arterial Blood Glucose Coronavirus (PCR) 05/28/21 05/29/21 05/29/21 21:19 07:34 11:19 WBC MCHC RDW Lymph % (Auto) Lymph # (Auto) Baso # (Auto) Seg Neutrophils % Seg Neuts % (Manual) Lymphocytes % (Manual) Seg Neutrophils # Seg Neutrophils # Man Lymphocytes # (Manual) D-Dimer ABG pH POC ABG pO2 ABG pO2 ABG HCO3 ABG O2 Saturation ABG Base Excess ABG Oxyhemoglobin ABG Sodium ABG Chloride ABG Glucose Oxyhemoglobin Carboxyhemoglobin Sodium Potassium Chloride Carbon Dioxide BUN Creatinine Glucose POC Glucose 274 H 139 H 293 H Hemoglobin A1c Ferritin AST ALT Alkaline Phosphatase Lactate Dehydrogenase C-Reactive Protein Total Protein Albumin Arterial Blood Glucose Coronavirus (PCR) 05/29/21 05/29/21 05/30/21 16:36 22:44 05:55 WBC MCHC RDW 21.3 H Lymph % (Auto) 8.0 L Lymph # (Auto) 0.6 L Baso # (Auto) Seg Neutrophils % 88.6 H Seg Neuts % (Manual) Lymphocytes % (Manual) Seg Neutrophils # Seg Neutrophils # Man Lymphocytes # (Manual) D-Dimer ABG pH POC ABG pO2 ABG pO2 ABG HCO3 ABG O2 Saturation ABG Base Excess ABG Oxyhemoglobin ABG Sodium ABG Chloride ABG Glucose Oxyhemoglobin Carboxyhemoglobin Sodium Potassium Chloride Carbon Dioxide BUN Creatinine Glucose POC Glucose 299 H 160 H Hemoglobin A1c Ferritin AST ALT Alkaline Phosphatase Lactate Dehydrogenase C-Reactive Protein Total Protein Albumin Arterial Blood Glucose Coronavirus (PCR) 05/30/21 05/30/21 05/30/21 05:55 08:04 11:13 WBC MCHC RDW Lymph % (Auto) Lymph # (Auto) Baso # (Auto) Seg Neutrophils % Seg Neuts % (Manual) Lymphocytes % (Manual) Seg Neutrophils # Seg Neutrophils # Man Lymphocytes # (Manual) D-Dimer ABG pH POC ABG pO2 ABG pO2 ABG HCO3 ABG O2 Saturation ABG Base Excess ABG Oxyhemoglobin ABG Sodium ABG Chloride ABG Glucose Oxyhemoglobin Carboxyhemoglobin Sodium Potassium Chloride Carbon Dioxide BUN 19 H Creatinine 0.2 L Glucose 209 H POC Glucose 157 H 275 H Hemoglobin A1c Ferritin AST ALT Alkaline Phosphatase Lactate Dehydrogenase C-Reactive Protein Total Protein Albumin Arterial Blood Glucose Coronavirus (PCR) 05/30/21 05/30/21 05/31/21 17:08 22:12 07:36 WBC MCHC RDW Lymph % (Auto) Lymph # (Auto) Baso # (Auto) Seg Neutrophils % Seg Neuts % (Manual) Lymphocytes % (Manual) Seg Neutrophils # Seg Neutrophils # Man Lymphocytes # (Manual) D-Dimer ABG pH POC ABG pO2 ABG pO2 ABG HCO3 ABG O2 Saturation ABG Base Excess ABG Oxyhemoglobin ABG Sodium ABG Chloride ABG Glucose Oxyhemoglobin Carboxyhemoglobin Sodium Potassium Chloride Carbon Dioxide BUN Creatinine Glucose POC Glucose 154 H 275 H 138 H Hemoglobin A1c Ferritin AST ALT Alkaline Phosphatase Lactate Dehydrogenase C-Reactive Protein Total Protein Albumin Arterial Blood Glucose Coronavirus (PCR) 05/31/21 11:17 WBC MCHC RDW Lymph % (Auto) Lymph # (Auto) Baso # (Auto) Seg Neutrophils % Seg Neuts % (Manual) Lymphocytes % (Manual) Seg Neutrophils # Seg Neutrophils # Man Lymphocytes # (Manual) D-Dimer ABG pH POC ABG pO2 ABG pO2 ABG HCO3 ABG O2 Saturation ABG Base Excess ABG Oxyhemoglobin ABG Sodium ABG Chloride ABG Glucose Oxyhemoglobin Carboxyhemoglobin Sodium Potassium Chloride Carbon Dioxide BUN Creatinine Glucose POC Glucose 258 H Hemoglobin A1c Ferritin AST ALT Alkaline Phosphatase Lactate Dehydrogenase C-Reactive Protein Total Protein Albumin Arterial Blood Glucose Coronavirus (PCR)
[2021-05-31] MEDS: MINERAL OIL/PETROLATUM, WHITE OPHTH OINT 3.5 GM OU SCH (21:55)
[2021-05-31] MEDS: ENOXAPARIN 40 MG/0.4 ML INJ SUB-Q SCH (21:56)
[2021-05-31] MEDS: SENNOSIDES 8.6 MG TAB PO SCH (21:57)
[2021-05-31] MEDS: ACETAMINOPHEN 325 MG TAB PO PRN (22:14)
[2021-06-01] MEDS: MOXIFLOXACIN 0.5% OPHTH SOLN 3ML OU SCH (05:26)
[2021-06-01] MEDS: MINERAL OIL/PETROLATUM, WHITE OPHTH OINT 3.5 GM OU SCH ×4 (05:26→21:50)
[2021-06-01] MEDS: methylPREDNISolone Sod Succinate 125 MG/2 ML INJ IV SCH ×3 (05:29→21:53)
[2021-06-01] MEDS: INSULIN LISPRO 100 UNIT/ML SUB-Q SCH ×3 (08:15→16:45)
[2021-06-01] MEDS: POLYETHYLENE GLYCOL 3350 17 GM POWDER PO SCH ×2 (10:25→12:53)
[2021-06-01] MEDS: DOCUSATE SODIUM 100 MG CAP PO SCH ×2 (10:25→21:51)
--- NOTE | 2021-06-01 10:26 | Progress Note ---
Assessment and Plan Assessment and Plan Assessment and plan: -Acute hypoxic resp failure due to covid19 -S/p BiPAP, Tolerated well now only on nasal cannula. HFNC o2 35 liters --Attempt to titrate more aggressively led to patient increasing high flow O2 back to 30%. -See RT notes for titration -Albuterol as needed -Pulmonary hygiene -Pulmonology following CTA chest ordered, patient could not tolerate --covid19 pna; --sepsis; -zinc/vitC/D -methylpred 125 mg every 8; wean as appropriate -Infectious disease consulted, -S/p Actemra and remdesivir -Trend temperature and WBC curve -Follow culture data --Oral candidiasis Nystatin solution ordered. Resolving. -- hyponatremia Resolved Sodium is 142 -- coagulopathy of covid; on AC -Subcu heparin -Trend CBC-no need for transfusion. -Transfuse for hemoglobin less than 7 -Bilateral lower extremity Doppler ultrasounds negative for DVT ; no CTA or VQ s can to rule out PE -- hyperglycemia; yerdsit-Fycr-Lukwy stable at this time. -Lantus HS -SSI AC/HS -Avoid hypoglycemia -- risk for protein gisella malnutrition given inc metabolic demand with resp insu fficiency -TPN earlier in hospital admission due to BiPAP however now patient is tolerating p.o. -Patient on a GI soft diet with aspiration precautions -Nutrition following -Bowel regimen: Colace, senna, MiraLAX -PPI --Anxiety Likely due to severe hypoxia Has shown some signs of improvement over the past 24 hours able to wean oxygen some. -Follows commands and RAY -PRN pain and anxiety meds -Patient is Filipino-speaking but understands Panamanian Added Ambien for insomnia. Anxiety resolving. add klonipin for anxiety --viral conjunctivitis right eye: Resolved would like drops for her eyes again. States eyes are dry. -Right eye- s/p 5 d course of cipro drops. suspect viral conjunctivitis. merritt bricating eye drops. supportive management. Erythema has resolved --Septic shock- resolved -S/p pressors now discontinued -MAP goal 65 -Pressure monitor per protocol Subjective Date of service: 06/01/21 Principal diagnosis: Covid-19 Interval history: 50 YO Female with GERD, Obesity, HLD presents to ED for evaluation. Patient reports "I cannot breathe". Patient states that she has experienced subjective fever, shortness of breath, malaise, body aches, dry cough, and shortness of breath over the past 1 week with progressively worsening symptoms over the same timeframe. EMS was notified and upon arrival the patient was found to be in distress and subsequent transported to [facility] for further care and evaluation of the aforementioned symptoms. The patient was seen and evaluated in the emergency department. All lab and imaging studies reviewed. Patient found to have a pulse oximetry of 86% with exertion on room air which is consistent with acute hypoxemic respiratory failure. Patient with chest x-ray which revealed bilateral pneumonia. Patient admitted to medical floor and initiated him on pneumonia protocol as well as coronavirus protocol. Patient knowledges fever but denies chills, chest pain, palpitation, skin rash, recent ill contacts, or known exposure to COVID-19. Prior admission on 01/21/2017 reviewed. All medication listed at time of admission has been reconciled. Patient is unvaccinated for coronavirus infection. 06/01/2021 Patient admitted for acute respiratory failure with hypoxia Weaning in progress Pulmonary consult appreciated COVID-pneumonia On high flow nasal cannula oxygen at 35 L. Otherwise doing well Patient wants a clay stain mixer Objective - Constitutional Vitals: Vital Signs - 12hr 05/31/21 06/01/21 06/01/21 23:07 05:18 09:59 Temperature 97.8 F Pulse Rate 79 Respiratory 18 Rate Blood Pressure 111/66 O2 Sat by Pulse 91 94 94 Oximetry General appearance: Present: mild distress, well-nourished - EENT Eyes: PERRL, EOM intact ENT: hearing intact, clear oral mucosa Ears: bilateral: normal - Neck Neck: supple, normal ROM - Respiratory Respiratory effort: normal Respiratory: bilateral: CTA, rhonchi (Scattered rhonchi) - Breasts Breasts: normal - Cardiovascular Heart rate: 86 Rhythm: regular Heart Sounds: Present: S1 & S2. Absent: gallop, rub Extremities: pulses intact, No edema, normal color, Full ROM - Gastrointestinal General gastrointestinal: Present: soft, non-tender, non-distended, normal bowel sounds - Genitourinary Female genitourinary: normal - Integumentary Integumentary: clear, warm, dry - Musculoskeletal Musculoskeletal: 1, strength equal bilaterally - Neurologic Neurologic: moves all extremities - Psychiatric Psychiatric: memory intact, appropriate mood/affect, intact judgment & insight - Labs CBC & Chem 7: 05/30/21 05:55 05/30/21 05:55 Labs: Abnormal lab results 05/31/21 05/31/21 05/31/21 Range/Units 11:17 16:55 21:25 POC Glucose 258 H 215 H 318 H (70-105) mg/dL 06/01/21 Range/Units 07:23 POC Glucose 157 H (70-105) mg/dL
[2021-06-01] MEDS: INSULIN GLARGINE 100 UNITS/ML SUB-Q SCH ×2 (12:24→22:00)
[2021-06-01] MEDS: CHOLECALCIFEROL (VIT D3) 1000 UNIT (25 mcg) TAB PO SCH (12:27)
[2021-06-01] MEDS: ZINC SULFATE 220 MG CAP PO SCH ×2 (12:27→21:53)
[2021-06-01] MEDS: FAMOTIDINE 20 MG TAB PO SCH ×2 (12:27→21:52)
[2021-06-01] MEDS: ASCORBIC ACID 500 MG TAB PO SCH (12:27)
[2021-06-01] MEDS: SENNOSIDES 8.6 MG TAB PO SCH (21:52)
[2021-06-01] MEDS: ACETAMINOPHEN 325 MG TAB PO PRN (21:54)
[2021-06-01] MEDS: ENOXAPARIN 40 MG/0.4 ML INJ SUB-Q SCH (21:58)
[2021-06-02] MEDS: methylPREDNISolone Sod Succinate 125 MG/2 ML INJ IV SCH ×3 (06:00→21:37)
[2021-06-02] MEDS: MINERAL OIL/PETROLATUM, WHITE OPHTH OINT 3.5 GM OU SCH ×3 (06:00→21:40)
[2021-06-02 06:24] LABS: Basophils % (Auto) 0.3 % (0.0-1.8); Hematocrit 40.5 % (30.3-42.9); Hemoglobin 13.6 gm/dl (10.1-14.3); Lymphocytes # (Auto) 0.6 K/mm3 (1.2-5.4); Lymphocytes % (Auto) 9.6 % (13.4-35.0); Mean Corpuscular HGB Conc 34 % (30-34); Mean Corpuscular Volume 95 fl (79-97); Monocytes # (Auto) 0.2 K/mm3 (0.0-0.8); Monocytes % (Auto) 3.9 % (0.0-7.3); Platelet Count 204 K/mm3 (140-440); Red Blood Count 4.29 M/mm3 (3.65-5.03)
[2021-06-02 06:30] LABS: Alanine Aminotransferase 69 units/L (7-56); Albumin 3.2 g/dL (3.9-5); Blood Urea Nitrogen 16 mg/dL (7-17); Calcium 8.8 mg/dL (8.4-10.2); Hemolysis Index 11
[2021-06-02 06:35] LABS: BUN/Creatinine Ratio 80
[2021-06-02 06:39] LABS: Red Cell Distribution Width 21.3 % (13.2-15.2)
[2021-06-02] MEDS: INSULIN LISPRO 100 UNIT/ML SUB-Q SCH ×5 (08:43→21:40)
[2021-06-02] MEDS: FAMOTIDINE 20 MG TAB PO SCH ×2 (09:01→21:39)
[2021-06-02] MEDS: ASCORBIC ACID 500 MG TAB PO SCH (09:02)
[2021-06-02] MEDS: ZINC SULFATE 220 MG CAP PO SCH ×2 (09:02→21:37)
[2021-06-02] MEDS: DOCUSATE SODIUM 100 MG CAP PO SCH ×2 (09:02→21:39)
[2021-06-02] MEDS: CHOLECALCIFEROL (VIT D3) 1000 UNIT (25 mcg) TAB PO SCH (09:03)
[2021-06-02] MEDS: POLYETHYLENE GLYCOL 3350 17 GM POWDER PO SCH (09:03)
[2021-06-02] MEDS: INSULIN GLARGINE 100 UNITS/ML SUB-Q SCH ×2 (09:06→21:39)
--- NOTE | 2021-06-02 11:47 | Progress Note ---
Assessment and Plan - Patient Problems (1) Pneumonia due to SARS-associated coronavirus Current Visit: Yes Status: Acute (2) Acute hypoxemic respiratory failure Current Visit: Yes Status: Acute (3) Obesity hypoventilation syndrome Current Visit: Yes Status: Acute (4) Pneumonia Current Visit: Yes Status: Acute Qualifiers: Aspiration pneumonia type: unspecified Laterality: unspecified laterality Lung location: unspecified part of lung (5) Transaminitis Current Visit: No Status: Acute (6) Oral thrush Current Visit: Yes Status: Acute Subjective Principal diagnosis: Covid-19 Interval history: awake Objective Vital Signs - 12hr 06/02/21 06/02/21 05:57 08:00 Temperature 97.4 F L Pulse Rate 80 Respiratory 20 Rate Blood Pressure 109/69 O2 Sat by Pulse 97 98 Oximetry Constitutional: no acute distress, alert Eyes: non-icteric ENT: oropharynx moist Neck: supple Effort: normal Ascultation: Bilateral: diminished breath sounds Cardiovascular: regular rate and rhythm Gastrointestinal: normoactive bowel sounds, soft, non-tender, non-distended Integumentary: normal Extremities: no cyanosis, no edema, pink and warm Neurologic: normal mental status, non-focal exam, pupils equal and round, CN II- XII normal Psychiatric: mood appropriate, affect normal CBC and BMP: 06/02/21 05:34 06/02/21 05:34 ABG, PT/INR, D-dimer: ABG ABG pH 7.403 pH Units (7.350-7.450) 05/14/21 02:23 POC ABG pCO2 45.4 mmHg (32.0-48.0) 05/03/21 04:49 ABG pCO2 50.2 mm Hg 05/14/21 02:23 POC ABG pO2 65.3 mmHg (83-108) L 05/03/21 04:49 ABG pO2 130.3 mm Hg (80.0-90.0) H 05/14/21 02:23 POC ABG HCO3 18.5 05/03/21 04:49 ABG O2 Saturation 98.5 % (95.0-99.0) 05/14/21 02:23 PT/INR, D-dimer D-Dimer 910.38 ng/mlDDU (0-234) H 05/23/21 09:50 Abnormal lab findings: Abnormal Labs 04/16/21 04/16/21 04/16/21 11:42 11:42 11:42 WBC MCHC RDW 16.1 H Lymph % (Auto) 7.8 L Lymph # (Auto) 0.8 L Baso # (Auto) Seg Neutrophils % 87.7 H Seg Neuts % (Manual) Lymphocytes % (Manual) Seg Neutrophils # 8.5 H Seg Neutrophils # Man Lymphocytes # (Manual) D-Dimer 338.70 H ABG pH POC ABG pO2 ABG pO2 ABG HCO3 ABG O2 Saturation ABG Base Excess ABG Oxyhemoglobin ABG Sodium ABG Chloride ABG Glucose Oxyhemoglobin Carboxyhemoglobin Sodium Potassium Chloride Carbon Dioxide BUN Creatinine Glucose 194 H POC Glucose Hemoglobin A1c Ferritin AST ALT Alkaline Phosphatase Lactate Dehydrogenase C-Reactive Protein Total Protein 8.4 H Albumin 3.8 L Arterial Blood Glucose Coronavirus (PCR) 04/16/21 04/16/21 04/17/21 11:42 11:42 03:50 WBC MCHC RDW 16.0 H Lymph % (Auto) 7.7 L Lymph # (Auto) 0.6 L Baso # (Auto) Seg Neutrophils % 89.8 H Seg Neuts % (Manual) Lymphocytes % (Manual) Seg Neutrophils # Seg Neutrophils # Man Lymphocytes # (Manual) D-Dimer ABG pH POC ABG pO2 ABG pO2 ABG HCO3 ABG O2 Saturation ABG Base Excess ABG Oxyhemoglobin ABG Sodium ABG Chloride ABG Glucose Oxyhemoglobin Carboxyhemoglobin Sodium Potassium Chloride Carbon Dioxide BUN Creatinine Glucose 195 H POC Glucose Hemoglobin A1c Ferritin 254.3 H AST ALT Alkaline Phosphatase Lactate Dehydrogenase 359 H C-Reactive Protein 15.20 H Total Protein Albumin Arterial Blood Glucose Coronavirus (PCR) 04/17/21 04/17/21 04/17/21 03:50 08:26 08:26 WBC MCHC RDW Lymph % (Auto) Lymph # (Auto) Baso # (Auto) Seg Neutrophils % Seg Neuts % (Manual) Lymphocytes % (Manual) Seg Neutrophils # Seg Neutrophils # Man Lymphocytes # (Manual) D-Dimer 262.48 H ABG pH POC ABG pO2 ABG pO2 ABG HCO3 ABG O2 Saturation ABG Base Excess ABG Oxyhemoglobin ABG Sodium ABG Chloride ABG Glucose Oxyhemoglobin Carboxyhemoglobin Sodium Potassium Chloride Carbon Dioxide BUN 20 H Creatinine 0.5 L Glucose 249 H 225 H POC Glucose Hemoglobin A1c Ferritin AST ALT Alkaline Phosphatase Lactate Dehydrogenase 338 H C-Reactive Protein 17.20 H Total Protein Albumin 3.2 L Arterial Blood Glucose Coronavirus (PCR) 04/17/21 04/17/21 04/17/21 08:26 15:04 Unknown WBC MCHC RDW Lymph % (Auto) Lymph # (Auto) Baso # (Auto) Seg Neutrophils % Seg Neuts % (Manual) Lymphocytes % (Manual) Seg Neutrophils # Seg Neutrophils # Man Lymphocytes # (Manual) D-Dimer ABG pH POC ABG pO2 ABG pO2 ABG HCO3 ABG O2 Saturation ABG Base Excess ABG Oxyhemoglobin ABG Sodium ABG Chloride ABG Glucose Oxyhemoglobin Carboxyhemoglobin Sodium Potassium Chloride Carbon Dioxide BUN 20 H Creatinine 0.5 L Glucose 246 H POC Glucose Hemoglobin A1c Ferritin 392.0 H AST ALT Alkaline Phosphatase Lactate Dehydrogenase C-Reactive Protein Total Protein 8.3 H Albumin 3.1 L Arterial Blood Glucose Coronavirus (PCR) Positive A 04/18/21 04/18/21 04/18/21 05:06 05:06 07:36 WBC 11.6 H MCHC RDW 16.1 H Lymph % (Auto) Lymph # (Auto) Baso # (Auto) Seg Neutrophils % Seg Neuts % (Manual) Lymphocytes % (Manual) Seg Neutrophils # Seg Neutrophils # Man Lymphocytes # (Manual) D-Dimer ABG pH POC ABG pO2 ABG pO2 ABG HCO3 ABG O2 Saturation ABG Base Excess ABG Oxyhemoglobin ABG Sodium ABG Chloride ABG Glucose Oxyhemoglobin Carboxyhemoglobin Sodium Potassium 5.2 H Chloride Carbon Dioxide BUN 22 H Creatinine 0.5 L Glucose 315 H POC Glucose Hemoglobin A1c 8.5 H Ferritin AST ALT Alkaline Phosphatase Lactate Dehydrogenase C-Reactive Protein Total Protein Albumin 3.3 L Arterial Blood Glucose Coronavirus (PCR) 04/18/21 04/18/21 04/18/21 11:59 16:43 23:24 WBC MCHC RDW Lymph % (Auto) Lymph # (Auto) Baso # (Auto) Seg Neutrophils % Seg Neuts % (Manual) Lymphocytes % (Manual) Seg Neutrophils # Seg Neutrophils # Man Lymphocytes # (Manual) D-Dimer ABG pH POC ABG pO2 ABG pO2 ABG HCO3 ABG O2 Saturation ABG Base Excess ABG Oxyhemoglobin ABG Sodium ABG Chloride ABG Glucose Oxyhemoglobin Carboxyhemoglobin Sodium Potassium Chloride Carbon Dioxide BUN Creatinine Glucose POC Glucose 284 H 273 H 290 H Hemoglobin A1c Ferritin AST ALT Alkaline Phosphatase Lactate Dehydrogenase C-Reactive Protein Total Protein Albumin Arterial Blood Glucose Coronavirus (PCR) 04/19/21 04/19/21 04/19/21 04:19 04:19 08:10 WBC MCHC RDW 15.7 H Lymph % (Auto) Lymph # (Auto) Baso # (Auto) Seg Neutrophils % Seg Neuts % (Manual) Lymphocytes % (Manual) Seg Neutrophils # Seg Neutrophils # Man Lymphocytes # (Manual) D-Dimer ABG pH POC ABG pO2 ABG pO2 ABG HCO3 ABG O2 Saturation ABG Base Excess ABG Oxyhemoglobin ABG Sodium ABG Chloride ABG Glucose Oxyhemoglobin Carboxyhemoglobin Sodium Potassium Chloride Carbon Dioxide BUN 27 H Creatinine 0.4 L Glucose 184 H POC Glucose 194 H Hemoglobin A1c Ferritin AST ALT Alkaline Phosphatase Lactate Dehydrogenase C-Reactive Protein Total Protein Albumin 3.1 L Arterial Blood Glucose Coronavirus (PCR) 04/19/21 04/19/21 04/19/21 11:38 16:25 22:04 WBC MCHC RDW Lymph % (Auto) Lymph # (Auto) Baso # (Auto) Seg Neutrophils % Seg Neuts % (Manual) Lymphocytes % (Manual) Seg Neutrophils # Seg Neutrophils # Man Lymphocytes # (Manual) D-Dimer ABG pH POC ABG pO2 ABG pO2 ABG HCO3 ABG O2 Saturation ABG Base Excess ABG Oxyhemoglobin ABG Sodium ABG Chloride ABG Glucose Oxyhemoglobin Carboxyhemoglobin Sodium Potassium Chloride Carbon Dioxide BUN Creatinine Glucose POC Glucose 224 H 297 H 251 H Hemoglobin A1c Ferritin AST ALT Alkaline Phosphatase Lactate Dehydrogenase C-Reactive Protein Total Protein Albumin Arterial Blood Glucose Coronavirus (PCR) 04/20/21 04/20/21 04/20/21 05:28 08:43 16:21 WBC MCHC RDW Lymph % (Auto) Lymph # (Auto) Baso # (Auto) Seg Neutrophils % Seg Neuts % (Manual) Lymphocytes % (Manual) Seg Neutrophils # Seg Neutrophils # Man Lymphocytes # (Manual) D-Dimer ABG pH POC ABG pO2 ABG pO2 ABG HCO3 ABG O2 Saturation ABG Base Excess ABG Oxyhemoglobin ABG Sodium ABG Chloride ABG Glucose Oxyhemoglobin Carboxyhemoglobin Sodium Potassium Chloride Carbon Dioxide BUN 27 H Creatinine Glucose 192 H POC Glucose 173 H 253 H Hemoglobin A1c Ferritin AST ALT Alkaline Phosphatase Lactate Dehydrogenase C-Reactive Protein Total Protein Albumin 3.0 L Arterial Blood Glucose Coronavirus (PCR) 04/21/21 04/21/21 04/21/21 07:58 12:05 16:08 WBC MCHC RDW Lymph % (Auto) Lymph # (Auto) Baso # (Auto) Seg Neutrophils % Seg Neuts % (Manual) Lymphocytes % (Manual) Seg Neutrophils # Seg Neutrophils # Man Lymphocytes # (Manual) D-Dimer ABG pH POC ABG pO2 ABG pO2 ABG HCO3 ABG O2 Saturation ABG Base Excess ABG Oxyhemoglobin ABG Sodium ABG Chloride ABG Glucose Oxyhemoglobin Carboxyhemoglobin Sodium Potassium Chloride Carbon Dioxide BUN Creatinine Glucose POC Glucose 140 H 252 H 214 H Hemoglobin A1c Ferritin AST ALT Alkaline Phosphatase Lactate Dehydrogenase C-Reactive Protein Total Protein Albumin Arterial Blood Glucose Coronavirus (PCR) 04/21/21 04/22/21 04/22/21 21:42 08:37 12:01 WBC MCHC RDW Lymph % (Auto) Lymph # (Auto) Baso # (Auto) Seg Neutrophils % Seg Neuts % (Manual) Lymphocytes % (Manual) Seg Neutrophils # Seg Neutrophils # Man Lymphocytes # (Manual) D-Dimer ABG pH 7.457 H POC ABG pO2 49.4 L ABG pO2 ABG HCO3 ABG O2 Saturation ABG Base Excess ABG Oxyhemoglobin 85.6 L ABG Sodium ABG Chloride ABG Glucose 121 H Oxyhemoglobin Carboxyhemoglobin 0.3 L Sodium Potassium Chloride Carbon Dioxide BUN Creatinine Glucose POC Glucose 162 H 227 H Hemoglobin A1c Ferritin AST ALT Alkaline Phosphatase Lactate Dehydrogenase C-Reactive Protein Total Protein Albumin Arterial Blood Glucose 121 H Coronavirus (PCR) 04/22/21 04/22/21 04/23/21 16:26 22:23 04:52 WBC MCHC RDW 15.7 H Lymph % (Auto) Lymph # (Auto) Baso # (Auto) Seg Neutrophils % Seg Neuts % (Manual) Lymphocytes % (Manual) Seg Neutrophils # Seg Neutrophils # Man Lymphocytes # (Manual) D-Dimer ABG pH POC ABG pO2 ABG pO2 ABG HCO3 ABG O2 Saturation ABG Base Excess ABG Oxyhemoglobin ABG Sodium ABG Chloride ABG Glucose Oxyhemoglobin Carboxyhemoglobin Sodium Potassium Chloride Carbon Dioxide BUN Creatinine Glucose POC Glucose 200 H 136 H Hemoglobin A1c Ferritin AST ALT Alkaline Phosphatase Lactate Dehydrogenase C-Reactive Protein Total Protein Albumin Arterial Blood Glucose Coronavirus (PCR) 04/23/21 04/23/21 04/23/21 04:52 12:06 17:41 WBC MCHC RDW Lymph % (Auto) Lymph # (Auto) Baso # (Auto) Seg Neutrophils % Seg Neuts % (Manual) Lymphocytes % (Manual) Seg Neutrophils # Seg Neutrophils # Man Lymphocytes # (Manual) D-Dimer ABG pH POC ABG pO2 ABG pO2 ABG HCO3 ABG O2 Saturation ABG Base Excess ABG Oxyhemoglobin ABG Sodium ABG Chloride ABG Glucose Oxyhemoglobin Carboxyhemoglobin Sodium 136 L Potassium Chloride 97.7 L Carbon Dioxide BUN 23 H Creatinine Glucose 101 H POC Glucose 202 H 169 H Hemoglobin A1c Ferritin AST 46 H ALT Alkaline Phosphatase Lactate Dehydrogenase C-Reactive Protein Total Protein Albumin 3.3 L Arterial Blood Glucose Coronavirus (PCR) 04/23/21 04/24/21 04/24/21 23:08 05:17 08:38 WBC MCHC RDW Lymph % (Auto) Lymph # (Auto) Baso # (Auto) Seg Neutrophils % Seg Neuts % (Manual) Lymphocytes % (Manual) Seg Neutrophils # Seg Neutrophils # Man Lymphocytes # (Manual) D-Dimer ABG pH POC ABG pO2 ABG pO2 ABG HCO3 ABG O2 Saturation ABG Base Excess ABG Oxyhemoglobin ABG Sodium ABG Chloride ABG Glucose Oxyhemoglobin Carboxyhemoglobin Sodium Potassium Chloride Carbon Dioxide BUN Creatinine Glucose POC Glucose 111 H 108 H 126 H Hemoglobin A1c Ferritin AST ALT Alkaline Phosphatase Lactate Dehydrogenase C-Reactive Protein Total Protein Albumin Arterial Blood Glucose Coronavirus (PCR) 04/24/21 04/24/21 04/24/21 11:54 17:57 21:23 WBC MCHC RDW Lymph % (Auto) Lymph # (Auto) Baso # (Auto) Seg Neutrophils % Seg Neuts % (Manual) Lymphocytes % (Manual) Seg Neutrophils # Seg Neutrophils # Man Lymphocytes # (Manual) D-Dimer ABG pH POC ABG pO2 ABG pO2 ABG HCO3 ABG O2 Saturation ABG Base Excess ABG Oxyhemoglobin ABG Sodium ABG Chloride ABG Glucose Oxyhemoglobin Carboxyhemoglobin Sodium Potassium Chloride Carbon Dioxide BUN Creatinine Glucose POC Glucose 147 H 177 H 138 H Hemoglobin A1c Ferritin AST ALT Alkaline Phosphatase Lactate Dehydrogenase C-Reactive Protein Total Protein Albumin Arterial Blood Glucose Coronavirus (PCR) 0804/25/21 04/25/21 07:06 11:23 15:43 WBC MCHC RDW Lymph % (Auto) Lymph # (Auto) Baso # (Auto) Seg Neutrophils % Seg Neuts % (Manual) Lymphocytes % (Manual) Seg Neutrophils # Seg Neutrophils # Man Lymphocytes # (Manual) D-Dimer ABG pH POC ABG pO2 ABG pO2 ABG HCO3 ABG O2 Saturation ABG Base Excess ABG Oxyhemoglobin ABG Sodium ABG Chloride ABG Glucose Oxyhemoglobin Carboxyhemoglobin Sodium Potassium Chloride Carbon Dioxide BUN Creatinine Glucose POC Glucose 147 H 169 H 227 H Hemoglobin A1c Ferritin AST ALT Alkaline Phosphatase Lactate Dehydrogenase C-Reactive Protein Total Protein Albumin Arterial Blood Glucose Coronavirus (PCR) 04/25/21 04/26/21 04/26/21 21:22 02:45 05:15 WBC MCHC RDW Lymph % (Auto) Lymph # (Auto) Baso # (Auto) Seg Neutrophils % Seg Neuts % (Manual) Lymphocytes % (Manual) Seg Neutrophils # Seg Neutrophils # Man Lymphocytes # (Manual) D-Dimer ABG pH POC ABG pO2 70.7 L ABG pO2 ABG HCO3 ABG O2 Saturation ABG Base Excess ABG Oxyhemoglobin 93.0 L ABG Sodium 132.7 L ABG Chloride ABG Glucose 115 H Oxyhemoglobin Carboxyhemoglobin Sodium Potassium Chloride 95.8 L Carbon Dioxide 32 H BUN 20 H Creatinine Glucose 102 H POC Glucose 196 H Hemoglobin A1c Ferritin AST ALT Alkaline Phosphatase Lactate Dehydrogenase C-Reactive Protein Total Protein Albumin Arterial Blood Glucose 115 H Coronavirus (PCR) 04/26/21 04/26/21 04/26/21 11:49 16:09 21:07 WBC MCHC RDW Lymph % (Auto) Lymph # (Auto) Baso # (Auto) Seg Neutrophils % Seg Neuts % (Manual) Lymphocytes % (Manual) Seg Neutrophils # Seg Neutrophils # Man Lymphocytes # (Manual) D-Dimer ABG pH POC ABG pO2 ABG pO2 ABG HCO3 ABG O2 Saturation ABG Base Excess ABG Oxyhemoglobin ABG Sodium ABG Chloride ABG Glucose Oxyhemoglobin Carboxyhemoglobin Sodium Potassium Chloride Carbon Dioxide BUN Creatinine Glucose POC Glucose 114 H 188 H 136 H Hemoglobin A1c Ferritin AST ALT Alkaline Phosphatase Lactate Dehydrogenase C-Reactive Protein Total Protein Albumin Arterial Blood Glucose Coronavirus (PCR) 04/27/21 04/27/21 04/28/21 17:34 22:12 08:26 WBC MCHC RDW Lymph % (Auto) Lymph # (Auto) Baso # (Auto) Seg Neutrophils % Seg Neuts % (Manual) Lymphocytes % (Manual) Seg Neutrophils # Seg Neutrophils # Man Lymphocytes # (Manual) D-Dimer ABG pH POC ABG pO2 ABG pO2 ABG HCO3 ABG O2 Saturation ABG Base Excess ABG Oxyhemoglobin ABG Sodium ABG Chloride ABG Glucose Oxyhemoglobin Carboxyhemoglobin Sodium Potassium Chloride Carbon Dioxide BUN Creatinine Glucose POC Glucose 128 H 159 H 69 L Hemoglobin A1c Ferritin AST ALT Alkaline Phosphatase Lactate Dehydrogenase C-Reactive Protein Total Protein Albumin Arterial Blood Glucose Coronavirus (PCR) 04/28/21 04/28/21 04/29/21 12:22 21:11 06:05 WBC MCHC RDW Lymph % (Auto) Lymph # (Auto) Baso # (Auto) Seg Neutrophils % Seg Neuts % (Manual) Lymphocytes % (Manual) Seg Neutrophils # Seg Neutrophils # Man Lymphocytes # (Manual) D-Dimer ABG pH POC ABG pO2 ABG pO2 ABG HCO3 ABG O2 Saturation ABG Base Excess ABG Oxyhemoglobin ABG Sodium ABG Chloride ABG Glucose Oxyhemoglobin Carboxyhemoglobin Sodium 132 L Potassium Chloride 94.4 L Carbon Dioxide BUN Creatinine 0.2 L D Glucose 140 H POC Glucose 141 H 171 H Hemoglobin A1c Ferritin AST ALT Alkaline Phosphatase Lactate Dehydrogenase C-Reactive Protein Total Protein Albumin Arterial Blood Glucose Coronavirus (PCR) 04/29/21 04/29/21 04/29/21 06:05 07:24 11:36 WBC MCHC 35 H RDW 15.9 H Lymph % (Auto) Lymph # (Auto) Baso # (Auto) Seg Neutrophils % Seg Neuts % (Manual) Lymphocytes % (Manual) Seg Neutrophils # Seg Neutrophils # Man Lymphocytes # (Manual) D-Dimer ABG pH POC ABG pO2 ABG pO2 ABG HCO3 ABG O2 Saturation ABG Base Excess ABG Oxyhemoglobin ABG Sodium ABG Chloride ABG Glucose Oxyhemoglobin Carboxyhemoglobin Sodium Potassium Chloride Carbon Dioxide BUN Creatinine Glucose POC Glucose 141 H 220 H Hemoglobin A1c Ferritin AST ALT Alkaline Phosphatase Lactate Dehydrogenase C-Reactive Protein Total Protein Albumin Arterial Blood Glucose Coronavirus (PCR) 04/29/21 04/29/21 04/29/21 14:23 15:30 17:06 WBC MCHC RDW Lymph % (Auto) Lymph # (Auto) Baso # (Auto) Seg Neutrophils % Seg Neuts % (Manual) Lymphocytes % (Manual) Seg Neutrophils # Seg Neutrophils # Man Lymphocytes # (Manual) D-Dimer ABG pH POC ABG pO2 ABG pO2 52.6 L ABG HCO3 ABG O2 Saturation 86.4 L ABG Base Excess ABG Oxyhemoglobin ABG Sodium ABG Chloride ABG Glucose Oxyhemoglobin 84.6 L Carboxyhemoglobin Sodium Potassium Chloride Carbon Dioxide BUN Creatinine Glucose POC Glucose 173 H 158 H Hemoglobin A1c Ferritin AST ALT Alkaline Phosphatase Lactate Dehydrogenase C-Reactive Protein Total Protein Albumin Arterial Blood Glucose Coronavirus (PCR) 04/29/21 04/30/21 04/30/21 21:27 07:16 08:00 WBC MCHC RDW 16.1 H Lymph % (Auto) Lymph # (Auto) Baso # (Auto) Seg Neutrophils % Seg Neuts % (Manual) Lymphocytes % (Manual) Seg Neutrophils # Seg Neutrophils # Man Lymphocytes # (Manual) D-Dimer ABG pH POC ABG pO2 ABG pO2 ABG HCO3 ABG O2 Saturation ABG Base Excess ABG Oxyhemoglobin ABG Sodium ABG Chloride ABG Glucose Oxyhemoglobin Carboxyhemoglobin Sodium Potassium Chloride Carbon Dioxide BUN Creatinine Glucose POC Glucose 244 H 175 H Hemoglobin A1c Ferritin AST ALT Alkaline Phosphatase Lactate Dehydrogenase C-Reactive Protein Total Protein Albumin Arterial Blood Glucose Coronavirus (PCR) 04/30/21 04/30/21 04/30/21 08:00 08:00 11:03 WBC MCHC RDW Lymph % (Auto) Lymph # (Auto) Baso # (Auto) Seg Neutrophils % Seg Neuts % (Manual) Lymphocytes % (Manual) Seg Neutrophils # Seg Neutrophils # Man Lymphocytes # (Manual) D-Dimer 1796.87 H ABG pH POC ABG pO2 ABG pO2 ABG HCO3 ABG O2 Saturation ABG Base Excess ABG Oxyhemoglobin ABG Sodium ABG Chloride ABG Glucose Oxyhemoglobin Carboxyhemoglobin Sodium 135 L Potassium Chloride 96.3 L Carbon Dioxide BUN Creatinine 0.2 L Glucose 153 H POC Glucose 183 H Hemoglobin A1c Ferritin AST 41 H ALT 76 H Alkaline Phosphatase 160 H Lactate Dehydrogenase 522 H C-Reactive Protein Total Protein 6.1 L Albumin 3.1 L Arterial Blood Glucose Coronavirus (PCR) 04/30/21 04/30/21 05/01/21 17:04 22:17 05:39 WBC MCHC RDW Lymph % (Auto) Lymph # (Auto) Baso # (Auto) Seg Neutrophils % Seg Neuts % (Manual) Lymphocytes % (Manual) Seg Neutrophils # Seg Neutrophils # Man Lymphocytes # (Manual) D-Dimer ABG pH POC ABG pO2 ABG pO2 ABG HCO3 ABG O2 Saturation ABG Base Excess ABG Oxyhemoglobin ABG Sodium ABG Chloride ABG Glucose Oxyhemoglobin Carboxyhemoglobin Sodium 133 L Potassium Chloride 92.1 L Carbon Dioxide BUN 24 H Creatinine 0.4 L D Glucose 269 H POC Glucose 167 H 208 H Hemoglobin A1c Ferritin AST ALT 66 H Alkaline Phosphatase 142 H Lactate Dehydrogenase C-Reactive Protein Total Protein Albumin 3.2 L Arterial Blood Glucose Coronavirus (PCR) 05/01/21 05/01/21 05/01/21 05:39 05:39 07:45 WBC MCHC RDW 16.0 H Lymph % (Auto) Lymph # (Auto) Baso # (Auto) Seg Neutrophils % Seg Neuts % (Manual) Lymphocytes % (Manual) Seg Neutrophils # Seg Neutrophils # Man Lymphocytes # (Manual) D-Dimer 3984.95 H ABG pH POC ABG pO2 ABG pO2 ABG HCO3 ABG O2 Saturation ABG Base Excess ABG Oxyhemoglobin ABG Sodium ABG Chloride ABG Glucose Oxyhemoglobin Carboxyhemoglobin Sodium Potassium Chloride Carbon Dioxide BUN Creatinine Glucose POC Glucose 229 H Hemoglobin A1c Ferritin AST ALT Alkaline Phosphatase Lactate Dehydrogenase C-Reactive Protein Total Protein Albumin Arterial Blood Glucose Coronavirus (PCR) 05/01/21 05/01/21 05/01/21 12:10 15:46 21:06 WBC MCHC RDW Lymph % (Auto) Lymph # (Auto) Baso # (Auto) Seg Neutrophils % Seg Neuts % (Manual) Lymphocytes % (Manual) Seg Neutrophils # Seg Neutrophils # Man Lymphocytes # (Manual) D-Dimer ABG pH POC ABG pO2 ABG pO2 ABG HCO3 ABG O2 Saturation ABG Base Excess ABG Oxyhemoglobin ABG Sodium ABG Chloride ABG Glucose Oxyhemoglobin Carboxyhemoglobin Sodium Potassium Chloride Carbon Dioxide BUN Creatinine Glucose POC Glucose 296 H 279 H 232 H Hemoglobin A1c Ferritin AST ALT Alkaline Phosphatase Lactate Dehydrogenase C-Reactive Protein Total Protein Albumin Arterial Blood Glucose Coronavirus (PCR) 05/02/21 05/02/21 05/02/21 04:55 04:55 04:55 WBC MCHC RDW 16.1 H Lymph % (Auto) Lymph # (Auto) Baso # (Auto) Seg Neutrophils % Seg Neuts % (Manual) Lymphocytes % (Manual) Seg Neutrophils # Seg Neutrophils # Man Lymphocytes # (Manual) D-Dimer 1401.08 H ABG pH POC ABG pO2 ABG pO2 ABG HCO3 ABG O2 Saturation ABG Base Excess ABG Oxyhemoglobin ABG Sodium ABG Chloride ABG Glucose Oxyhemoglobin Carboxyhemoglobin Sodium 131 L Potassium Chloride 95.5 L Carbon Dioxide BUN 20 H Creatinine 0.3 L Glucose 288 H POC Glucose Hemoglobin A1c Ferritin AST ALT Alkaline Phosphatase Lactate Dehydrogenase C-Reactive Protein Total Protein 6.0 L Albumin 3.1 L Arterial Blood Glucose Coronavirus (PCR) 05/02/21 05/02/21 05/02/21 07:53 11:45 15:25 WBC MCHC RDW Lymph % (Auto) Lymph # (Auto) Baso # (Auto) Seg Neutrophils % Seg Neuts % (Manual) Lymphocytes % (Manual) Seg Neutrophils # Seg Neutrophils # Man Lymphocytes # (Manual) D-Dimer ABG pH POC ABG pO2 ABG pO2 ABG HCO3 ABG O2 Saturation ABG Base Excess ABG Oxyhemoglobin ABG Sodium ABG Chloride ABG Glucose Oxyhemoglobin Carboxyhemoglobin Sodium Potassium Chloride Carbon Dioxide BUN Creatinine Glucose POC Glucose 180 H 228 H 275 H Hemoglobin A1c Ferritin AST ALT Alkaline Phosphatase Lactate Dehydrogenase C-Reactive Protein Total Protein Albumin Arterial Blood Glucose Coronavirus (PCR) 05/02/21 05/03/21 05/03/21 22:56 04:30 04:49 WBC MCHC RDW Lymph % (Auto) Lymph # (Auto) Baso # (Auto) Seg Neutrophils % Seg Neuts % (Manual) Lymphocytes % (Manual) Seg Neutrophils # Seg Neutrophils # Man Lymphocytes # (Manual) D-Dimer ABG pH 7.229 L POC ABG pO2 65.3 L ABG pO2 ABG HCO3 ABG O2 Saturation ABG Base Excess ABG Oxyhemoglobin 87.8 L ABG Sodium 133.0 L ABG Chloride 97.0 L ABG Glucose 403 H Oxyhemoglobin Carboxyhemoglobin Sodium 130 L Potassium Chloride 94.9 L Carbon Dioxide BUN 20 H Creatinine 0.5 L D Glucose 359 H POC Glucose 293 H Hemoglobin A1c Ferritin AST 54 H ALT 75 H Alkaline Phosphatase 138 H Lactate Dehydrogenase C-Reactive Protein Total Protein Albumin 3.6 L Arterial Blood Glucose 403 H Coronavirus (PCR) 05/03/21 05/03/21 05/03/21 05:27 11:26 17:57 WBC MCHC RDW Lymph % (Auto) Lymph # (Auto) Baso # (Auto) Seg Neutrophils % Seg Neuts % (Manual) Lymphocytes % (Manual) Seg Neutrophils # Seg Neutrophils # Man Lymphocytes # (Manual) D-Dimer ABG pH POC ABG pO2 ABG pO2 ABG HCO3 ABG O2 Saturation ABG Base Excess ABG Oxyhemoglobin ABG Sodium ABG Chloride ABG Glucose Oxyhemoglobin Carboxyhemoglobin Sodium Potassium Chloride Carbon Dioxide BUN Creatinine Glucose POC Glucose 361 H 297 H 226 H Hemoglobin A1c Ferritin AST ALT Alkaline Phosphatase Lactate Dehydrogenase C-Reactive Protein Total Protein Albumin Arterial Blood Glucose Coronavirus (PCR) 05/03/21 05/04/21 05/04/21 23:12 05:12 07:30 WBC MCHC RDW Lymph % (Auto) Lymph # (Auto) Baso # (Auto) Seg Neutrophils % Seg Neuts % (Manual) Lymphocytes % (Manual) Seg Neutrophils # Seg Neutrophils # Man Lymphocytes # (Manual) D-Dimer ABG pH POC ABG pO2 ABG pO2 ABG HCO3 ABG O2 Saturation ABG Base Excess ABG Oxyhemoglobin ABG Sodium ABG Chloride ABG Glucose Oxyhemoglobin Carboxyhemoglobin Sodium Potassium Chloride Carbon Dioxide BUN Creatinine Glucose POC Glucose 282 H 285 H 254 H Hemoglobin A1c Ferritin AST ALT Alkaline Phosphatase Lactate Dehydrogenase C-Reactive Protein Total Protein Albumin Arterial Blood Glucose Coronavirus (PCR) 05/04/21 05/04/21 05/04/21 08:58 11:45 16:07 WBC MCHC RDW Lymph % (Auto) Lymph # (Auto) Baso # (Auto) Seg Neutrophils % Seg Neuts % (Manual) Lymphocytes % (Manual) Seg Neutrophils # Seg Neutrophils # Man Lymphocytes # (Manual) D-Dimer ABG pH POC ABG pO2 ABG pO2 ABG HCO3 ABG O2 Saturation ABG Base Excess ABG Oxyhemoglobin ABG Sodium ABG Chloride ABG Glucose Oxyhemoglobin Carboxyhemoglobin Sodium 134 L Potassium Chloride Carbon Dioxide BUN 20 H Creatinine 0.3 L Glucose 267 H POC Glucose 244 H 297 H Hemoglobin A1c Ferritin AST ALT Alkaline Phosphatase Lactate Dehydrogenase C-Reactive Protein Total Protein 6.0 L Albumin 3.2 L Arterial Blood Glucose Coronavirus (PCR) 08/05/05/21 05/05/21 23:32 05:00 05:13 WBC MCHC RDW Lymph % (Auto) Lymph # (Auto) Baso # (Auto) Seg Neutrophils % Seg Neuts % (Manual) Lymphocytes % (Manual) Seg Neutrophils # Seg Neutrophils # Man Lymphocytes # (Manual) D-Dimer ABG pH POC ABG pO2 ABG pO2 ABG HCO3 ABG O2 Saturation ABG Base Excess ABG Oxyhemoglobin ABG Sodium ABG Chloride ABG Glucose Oxyhemoglobin Carboxyhemoglobin Sodium 132 L Potassium Chloride 96.4 L Carbon Dioxide BUN 22 H Creatinine 0.3 L Glucose 228 H POC Glucose 154 H 260 H Hemoglobin A1c Ferritin AST ALT 67 H Alkaline Phosphatase Lactate Dehydrogenase C-Reactive Protein Total Protein 6.1 L Albumin 3.2 L Arterial Blood Glucose Coronavirus (PCR) 05/05/21 05/05/21 05/05/21 11:32 17:49 23:07 WBC MCHC RDW Lymph % (Auto) Lymph # (Auto) Baso # (Auto) Seg Neutrophils % Seg Neuts % (Manual) Lymphocytes % (Manual) Seg Neutrophils # Seg Neutrophils # Man Lymphocytes # (Manual) D-Dimer ABG pH POC ABG pO2 ABG pO2 ABG HCO3 ABG O2 Saturation ABG Base Excess ABG Oxyhemoglobin ABG Sodium ABG Chloride ABG Glucose Oxyhemoglobin Carboxyhemoglobin Sodium Potassium Chloride Carbon Dioxide BUN Creatinine Glucose POC Glucose 279 H 308 H 213 H Hemoglobin A1c Ferritin AST ALT Alkaline Phosphatase Lactate Dehydrogenase C-Reactive Protein Total Protein Albumin Arterial Blood Glucose Coronavirus (PCR) 05/06/21 05/06/21 05/06/21 05:00 05:00 05:20 WBC MCHC RDW 16.8 H Lymph % (Auto) Lymph # (Auto) Baso # (Auto) Seg Neutrophils % Seg Neuts % (Manual) 99.0 H Lymphocytes % (Manual) Seg Neutrophils # Seg Neutrophils # Man 10.9 H Lymphocytes # (Manual) 0.0 L D-Dimer ABG pH POC ABG pO2 ABG pO2 ABG HCO3 ABG O2 Saturation ABG Base Excess ABG Oxyhemoglobin ABG Sodium ABG Chloride ABG Glucose Oxyhemoglobin Carboxyhemoglobin Sodium 133 L Potassium Chloride Carbon Dioxide BUN 21 H Creatinine 0.3 L Glucose 259 H POC Glucose 308 H Hemoglobin A1c Ferritin AST ALT Alkaline Phosphatase Lactate Dehydrogenase C-Reactive Protein Total Protein Albumin 3.2 L Arterial Blood Glucose Coronavirus (PCR) 05/06/21 05/06/21 05/06/21 11:24 17:54 21:32 WBC MCHC RDW Lymph % (Auto) Lymph # (Auto) Baso # (Auto) Seg Neutrophils % Seg Neuts % (Manual) Lymphocytes % (Manual) Seg Neutrophils # Seg Neutrophils # Man Lymphocytes # (Manual) D-Dimer ABG pH POC ABG pO2 ABG pO2 ABG HCO3 ABG O2 Saturation ABG Base Excess ABG Oxyhemoglobin ABG Sodium ABG Chloride ABG Glucose Oxyhemoglobin Carboxyhemoglobin Sodium Potassium Chloride Carbon Dioxide BUN Creatinine Glucose POC Glucose 262 H 124 H 246 H Hemoglobin A1c Ferritin AST ALT Alkaline Phosphatase Lactate Dehydrogenase C-Reactive Protein Total Protein Albumin Arterial Blood Glucose Coronavirus (PCR) 05/06/21 05/07/21 05/07/21 23:10 04:54 04:54 WBC MCHC RDW Lymph % (Auto) Lymph # (Auto) Baso # (Auto) Seg Neutrophils % Seg Neuts % (Manual) Lymphocytes % (Manual) Seg Neutrophils # Seg Neutrophils # Man Lymphocytes # (Manual) D-Dimer 1609.28 H ABG pH POC ABG pO2 ABG pO2 ABG HCO3 ABG O2 Saturation ABG Base Excess ABG Oxyhemoglobin ABG Sodium ABG Chloride ABG Glucose Oxyhemoglobin Carboxyhemoglobin Sodium 136 L Potassium Chloride Carbon Dioxide BUN 23 H Creatinine 0.3 L Glucose 110 H POC Glucose 249 H Hemoglobin A1c Ferritin AST ALT Alkaline Phosphatase Lactate Dehydrogenase C-Reactive Protein Total Protein 6.2 L Albumin 3.0 L Arterial Blood Glucose Coronavirus (PCR) 05/07/21 05/07/21 05/07/21 04:54 04:54 11:41 WBC MCHC RDW Lymph % (Auto) Lymph # (Auto) Baso # (Auto) Seg Neutrophils % Seg Neuts % (Manual) Lymphocytes % (Manual) Seg Neutrophils # Seg Neutrophils # Man Lymphocytes # (Manual) D-Dimer ABG pH POC ABG pO2 ABG pO2 ABG HCO3 ABG O2 Saturation ABG Base Excess ABG Oxyhemoglobin ABG Sodium ABG Chloride ABG Glucose Oxyhemoglobin Carboxyhemoglobin Sodium Potassium Chloride Carbon Dioxide BUN Creatinine Glucose POC Glucose 118 H Hemoglobin A1c Ferritin 296.1 H AST ALT Alkaline Phosphatase Lactate Dehydrogenase 724 H C-Reactive Protein Total Protein Albumin Arterial Blood Glucose Coronavirus (PCR) 05/07/21 05/07/21 05/08/21 16:43 22:34 06:44 WBC MCHC RDW Lymph % (Auto) Lymph # (Auto) Baso # (Auto) Seg Neutrophils % Seg Neuts % (Manual) Lymphocytes % (Manual) Seg Neutrophils # Seg Neutrophils # Man Lymphocytes # (Manual) D-Dimer ABG pH POC ABG pO2 ABG pO2 ABG HCO3 ABG O2 Saturation ABG Base Excess ABG Oxyhemoglobin ABG Sodium ABG Chloride ABG Glucose Oxyhemoglobin Carboxyhemoglobin Sodium Potassium Chloride Carbon Dioxide BUN Creatinine Glucose POC Glucose 159 H 233 H 235 H Hemoglobin A1c Ferritin AST ALT Alkaline Phosphatase Lactate Dehydrogenase C-Reactive Protein Total Protein Albumin Arterial Blood Glucose Coronavirus (PCR) 05/08/21 05/08/21 05/08/21 07:49 11:56 17:13 WBC MCHC RDW Lymph % (Auto) Lymph # (Auto) Baso # (Auto) Seg Neutrophils % Seg Neuts % (Manual) Lymphocytes % (Manual) Seg Neutrophils # Seg Neutrophils # Man Lymphocytes # (Manual) D-Dimer ABG pH POC ABG pO2 ABG pO2 ABG HCO3 ABG O2 Saturation ABG Base Excess ABG Oxyhemoglobin ABG Sodium ABG Chloride ABG Glucose Oxyhemoglobin Carboxyhemoglobin Sodium Potassium Chloride Carbon Dioxide BUN Creatinine Glucose POC Glucose 219 H 184 H 182 H Hemoglobin A1c Ferritin AST ALT Alkaline Phosphatase Lactate Dehydrogenase C-Reactive Protein Total Protein Albumin Arterial Blood Glucose Coronavirus (PCR) 05/08/21 05/09/21 05/09/21 23:35 05:20 05:20 WBC MCHC RDW Lymph % (Auto) Lymph # (Auto) Baso # (Auto) Seg Neutrophils % Seg Neuts % (Manual) Lymphocytes % (Manual) Seg Neutrophils # Seg Neutrophils # Man Lymphocytes # (Manual) D-Dimer 1003.87 H ABG pH POC ABG pO2 ABG pO2 ABG HCO3 ABG O2 Saturation ABG Base Excess ABG Oxyhemoglobin ABG Sodium ABG Chloride ABG Glucose Oxyhemoglobin Carboxyhemoglobin Sodium Potassium Chloride Carbon Dioxide BUN Creatinine Glucose POC Glucose 198 H Hemoglobin A1c Ferritin 378.7 H AST ALT Alkaline Phosphatase Lactate Dehydrogenase C-Reactive Protein Total Protein Albumin Arterial Blood Glucose Coronavirus (PCR) 05/09/21 05/09/21 05/09/21 05:20 06:04 12:53 WBC MCHC RDW Lymph % (Auto) Lymph # (Auto) Baso # (Auto) Seg Neutrophils % Seg Neuts % (Manual) Lymphocytes % (Manual) Seg Neutrophils # Seg Neutrophils # Man Lymphocytes # (Manual) D-Dimer ABG pH POC ABG pO2 ABG pO2 ABG HCO3 ABG O2 Saturation ABG Base Excess ABG Oxyhemoglobin ABG Sodium ABG Chloride ABG Glucose Oxyhemoglobin Carboxyhemoglobin Sodium Potassium Chloride Carbon Dioxide BUN Creatinine Glucose POC Glucose 159 H 180 H Hemoglobin A1c Ferritin AST ALT Alkaline Phosphatase Lactate Dehydrogenase 558 H C-Reactive Protein 2.40 H Total Protein Albumin Arterial Blood Glucose Coronavirus (PCR) 05/09/21 05/09/21 05/10/21 16:43 21:27 10:18 WBC MCHC RDW Lymph % (Auto) Lymph # (Auto) Baso # (Auto) Seg Neutrophils % Seg Neuts % (Manual) Lymphocytes % (Manual) Seg Neutrophils # Seg Neutrophils # Man Lymphocytes # (Manual) D-Dimer ABG pH POC ABG pO2 ABG pO2 ABG HCO3 ABG O2 Saturation ABG Base Excess ABG Oxyhemoglobin ABG Sodium ABG Chloride ABG Glucose Oxyhemoglobin Carboxyhemoglobin Sodium Potassium Chloride Carbon Dioxide BUN Creatinine Glucose POC Glucose 212 H 285 H 261 H Hemoglobin A1c Ferritin AST ALT Alkaline Phosphatase Lactate Dehydrogenase C-Reactive Protein Total Protein Albumin Arterial Blood Glucose Coronavirus (PCR) 05/10/21 05/10/21 05/11/21 17:58 18:02 00:29 WBC MCHC RDW Lymph % (Auto) Lymph # (Auto) Baso # (Auto) Seg Neutrophils % Seg Neuts % (Manual) Lymphocytes % (Manual) Seg Neutrophils # Seg Neutrophils # Man Lymphocytes # (Manual) D-Dimer ABG pH POC ABG pO2 ABG pO2 ABG HCO3 ABG O2 Saturation ABG Base Excess ABG Oxyhemoglobin ABG Sodium ABG Chloride ABG Glucose Oxyhemoglobin Carboxyhemoglobin Sodium Potassium Chloride Carbon Dioxide BUN Creatinine Glucose POC Glucose 213 H 179 H 149 H Hemoglobin A1c Ferritin AST ALT Alkaline Phosphatase Lactate Dehydrogenase C-Reactive Protein Total Protein Albumin Arterial Blood Glucose Coronavirus (PCR) 05/11/21 05/11/21 05/11/21 05:22 11:32 17:00 WBC 14.9 H MCHC RDW 18.9 H Lymph % (Auto) 4.9 L Lymph # (Auto) 0.7 L Baso # (Auto) 0.2 H Seg Neutrophils % Seg Neuts % (Manual) Lymphocytes % (Manual) Seg Neutrophils # 13.3 H Seg Neutrophils # Man Lymphocytes # (Manual) D-Dimer ABG pH POC ABG pO2 ABG pO2 ABG HCO3 ABG O2 Saturation ABG Base Excess ABG Oxyhemoglobin ABG Sodium ABG Chloride ABG Glucose Oxyhemoglobin Carboxyhemoglobin Sodium Potassium Chloride Carbon Dioxide BUN Creatinine Glucose POC Glucose 162 H 179 H Hemoglobin A1c Ferritin AST ALT Alkaline Phosphatase Lactate Dehydrogenase C-Reactive Protein Total Protein Albumin Arterial Blood Glucose Coronavirus (PCR) 05/11/21 05/11/21 05/11/21 17:00 17:33 22:03 WBC MCHC RDW Lymph % (Auto) Lymph # (Auto) Baso # (Auto) Seg Neutrophils % Seg Neuts % (Manual) Lymphocytes % (Manual) Seg Neutrophils # Seg Neutrophils # Man Lymphocytes # (Manual) D-Dimer ABG pH POC ABG pO2 ABG pO2 ABG HCO3 ABG O2 Saturation ABG Base Excess ABG Oxyhemoglobin ABG Sodium ABG Chloride ABG Glucose Oxyhemoglobin Carboxyhemoglobin Sodium 135 L Potassium Chloride 97.3 L Carbon Dioxide BUN 21 H Creatinine 0.3 L Glucose 133 H POC Glucose 140 H 282 H Hemoglobin A1c Ferritin AST ALT 60 H Alkaline Phosphatase Lactate Dehydrogenase C-Reactive Protein Total Protein Albumin 3.1 L Arterial Blood Glucose Coronavirus (PCR) 05/12/21 05/12/21 05/12/21 04:05 04:05 04:05 WBC MCHC RDW 18.4 H Lymph % (Auto) Lymph # (Auto) Baso # (Auto) Seg Neutrophils % Seg Neuts % (Manual) 94.0 H Lymphocytes % (Manual) 4.0 L Seg Neutrophils # Seg Neutrophils # Man Lymphocytes # (Manual) 0.3 L D-Dimer ABG pH POC ABG pO2 ABG pO2 ABG HCO3 ABG O2 Saturation ABG Base Excess ABG Oxyhemoglobin ABG Sodium ABG Chloride ABG Glucose Oxyhemoglobin Carboxyhemoglobin Sodium 136 L Potassium Chloride Carbon Dioxide BUN 18 H Creatinine 0.2 L Glucose 142 H POC Glucose Hemoglobin A1c Ferritin 350.7 H AST ALT Alkaline Phosphatase Lactate Dehydrogenase 546 H C-Reactive Protein Total Protein 6.1 L Albumin 3.0 L Arterial Blood Glucose Coronavirus (PCR) 05/12/21 05/12/21 05/12/21 05:11 11:17 16:27 WBC MCHC RDW Lymph % (Auto) Lymph # (Auto) Baso # (Auto) Seg Neutrophils % Seg Neuts % (Manual) Lymphocytes % (Manual) Seg Neutrophils # Seg Neutrophils # Man Lymphocytes # (Manual) D-Dimer ABG pH POC ABG pO2 ABG pO2 ABG HCO3 ABG O2 Saturation ABG Base Excess ABG Oxyhemoglobin ABG Sodium ABG Chloride ABG Glucose Oxyhemoglobin Carboxyhemoglobin Sodium Potassium Chloride Carbon Dioxide BUN Creatinine Glucose POC Glucose 152 H 190 H 261 H Hemoglobin A1c Ferritin AST ALT Alkaline Phosphatase Lactate Dehydrogenase C-Reactive Protein Total Protein Albumin Arterial Blood Glucose Coronavirus (PCR) 05/12/21 05/13/21 05/13/21 20:55 11:08 21:41 WBC MCHC RDW Lymph % (Auto) Lymph # (Auto) Baso # (Auto) Seg Neutrophils % Seg Neuts % (Manual) Lymphocytes % (Manual) Seg Neutrophils # Seg Neutrophils # Man Lymphocytes # (Manual) D-Dimer ABG pH POC ABG pO2 ABG pO2 ABG HCO3 ABG O2 Saturation ABG Base Excess ABG Oxyhemoglobin ABG Sodium ABG Chloride ABG Glucose Oxyhemoglobin Carboxyhemoglobin Sodium Potassium Chloride Carbon Dioxide BUN Creatinine Glucose POC Glucose 231 H 106 H 174 H Hemoglobin A1c Ferritin AST ALT Alkaline Phosphatase Lactate Dehydrogenase C-Reactive Protein Total Protein Albumin Arterial Blood Glucose Coronavirus (PCR) 05/14/21 05/14/21 05/14/21 00:53 02:23 06:06 WBC MCHC RDW Lymph % (Auto) Lymph # (Auto) Baso # (Auto) Seg Neutrophils % Seg Neuts % (Manual) Lymphocytes % (Manual) Seg Neutrophils # Seg Neutrophils # Man Lymphocytes # (Manual) D-Dimer ABG pH POC ABG pO2 ABG pO2 130.3 H ABG HCO3 30.6 H ABG O2 Saturation ABG Base Excess 4.9 H ABG Oxyhemoglobin ABG Sodium ABG Chloride ABG Glucose Oxyhemoglobin Carboxyhemoglobin Sodium Potassium Chloride Carbon Dioxide BUN Creatinine Glucose POC Glucose 229 H 119 H Hemoglobin A1c Ferritin AST ALT Alkaline Phosphatase Lactate Dehydrogenase C-Reactive Protein Total Protein Albumin Arterial Blood Glucose Coronavirus (PCR) 05/14/21 05/14/21 05/14/21 07:13 07:13 07:13 WBC MCHC RDW Lymph % (Auto) Lymph # (Auto) Baso # (Auto) Seg Neutrophils % Seg Neuts % (Manual) Lymphocytes % (Manual) Seg Neutrophils # Seg Neutrophils # Man Lymphocytes # (Manual) D-Dimer 712.80 H ABG pH POC ABG pO2 ABG pO2 ABG HCO3 ABG O2 Saturation ABG Base Excess ABG Oxyhemoglobin ABG Sodium ABG Chloride ABG Glucose Oxyhemoglobin Carboxyhemoglobin Sodium 133 L Potassium Chloride 95.5 L Carbon Dioxide 32 H BUN Creatinine 0.2 L Glucose 137 H POC Glucose Hemoglobin A1c Ferritin 283.5 H AST ALT 63 H Alkaline Phosphatase Lactate Dehydrogenase 563 H C-Reactive Protein Total Protein 6.1 L Albumin 3.0 L Arterial Blood Glucose Coronavirus (PCR) 05/14/21 05/14/21 05/14/21 12:21 15:33 21:50 WBC MCHC RDW Lymph % (Auto) Lymph # (Auto) Baso # (Auto) Seg Neutrophils % Seg Neuts % (Manual) Lymphocytes % (Manual) Seg Neutrophils # Seg Neutrophils # Man Lymphocytes # (Manual) D-Dimer ABG pH POC ABG pO2 ABG pO2 ABG HCO3 ABG O2 Saturation ABG Base Excess ABG Oxyhemoglobin ABG Sodium ABG Chloride ABG Glucose Oxyhemoglobin Carboxyhemoglobin Sodium Potassium Chloride Carbon Dioxide BUN Creatinine Glucose POC Glucose 143 H 204 H 202 H Hemoglobin A1c Ferritin AST ALT Alkaline Phosphatase Lactate Dehydrogenase C-Reactive Protein Total Protein Albumin Arterial Blood Glucose Coronavirus (PCR) 05/15/21 05/15/21 05/15/21 05:05 11:12 16:39 WBC MCHC RDW Lymph % (Auto) Lymph # (Auto) Baso # (Auto) Seg Neutrophils % Seg Neuts % (Manual) Lymphocytes % (Manual) Seg Neutrophils # Seg Neutrophils # Man Lymphocytes # (Manual) D-Dimer ABG pH POC ABG pO2 ABG pO2 ABG HCO3 ABG O2 Saturation ABG Base Excess ABG Oxyhemoglobin ABG Sodium ABG Chloride ABG Glucose Oxyhemoglobin Carboxyhemoglobin Sodium Potassium Chloride Carbon Dioxide BUN Creatinine Glucose POC Glucose 125 H 201 H 241 H Hemoglobin A1c Ferritin AST ALT Alkaline Phosphatase Lactate Dehydrogenase C-Reactive Protein Total Protein Albumin Arterial Blood Glucose Coronavirus (PCR) 05/15/21 05/16/21 05/16/21 21:31 05:04 10:40 WBC MCHC RDW Lymph % (Auto) Lymph # (Auto) Baso # (Auto) Seg Neutrophils % Seg Neuts % (Manual) Lymphocytes % (Manual) Seg Neutrophils # Seg Neutrophils # Man Lymphocytes # (Manual) D-Dimer ABG pH POC ABG pO2 ABG pO2 ABG HCO3 ABG O2 Saturation ABG Base Excess ABG Oxyhemoglobin ABG Sodium ABG Chloride ABG Glucose Oxyhemoglobin Carboxyhemoglobin Sodium Potassium Chloride Carbon Dioxide BUN Creatinine Glucose POC Glucose 234 H 123 H 231 H Hemoglobin A1c Ferritin AST ALT Alkaline Phosphatase Lactate Dehydrogenase C-Reactive Protein Total Protein Albumin Arterial Blood Glucose Coronavirus (PCR) 05/16/21 05/16/21 05/17/21 18:23 21:29 06:20 WBC MCHC RDW 18.8 H Lymph % (Auto) 10.2 L Lymph # (Auto) 0.8 L Baso # (Auto) Seg Neutrophils % 85.8 H Seg Neuts % (Manual) Lymphocytes % (Manual) Seg Neutrophils # Seg Neutrophils # Man Lymphocytes # (Manual) D-Dimer ABG pH POC ABG pO2 ABG pO2 ABG HCO3 ABG O2 Saturation ABG Base Excess ABG Oxyhemoglobin ABG Sodium ABG Chloride ABG Glucose Oxyhemoglobin Carboxyhemoglobin Sodium Potassium Chloride Carbon Dioxide BUN Creatinine Glucose POC Glucose 266 H 234 H Hemoglobin A1c Ferritin AST ALT Alkaline Phosphatase Lactate Dehydrogenase C-Reactive Protein Total Protein Albumin Arterial Blood Glucose Coronavirus (PCR) 05/17/21 05/17/21 05/17/21 06:20 11:06 16:36 WBC MCHC RDW Lymph % (Auto) Lymph # (Auto) Baso # (Auto) Seg Neutrophils % Seg Neuts % (Manual) Lymphocytes % (Manual) Seg Neutrophils # Seg Neutrophils # Man Lymphocytes # (Manual) D-Dimer ABG pH POC ABG pO2 ABG pO2 ABG HCO3 ABG O2 Saturation ABG Base Excess ABG Oxyhemoglobin ABG Sodium ABG Chloride ABG Glucose Oxyhemoglobin Carboxyhemoglobin Sodium Potassium Chloride Carbon Dioxide 33 H BUN Creatinine 0.2 L Glucose 101 H POC Glucose 209 H 180 H Hemoglobin A1c Ferritin AST ALT Alkaline Phosphatase Lactate Dehydrogenase C-Reactive Protein Total Protein Albumin Arterial Blood Glucose Coronavirus (PCR) 05/17/21 05/18/21 05/18/21 21:06 12:00 15:06 WBC MCHC RDW Lymph % (Auto) Lymph # (Auto) Baso # (Auto) Seg Neutrophils % Seg Neuts % (Manual) Lymphocytes % (Manual) Seg Neutrophils # Seg Neutrophils # Man Lymphocytes # (Manual) D-Dimer 874.02 H ABG pH POC ABG pO2 ABG pO2 ABG HCO3 ABG O2 Saturation ABG Base Excess ABG Oxyhemoglobin ABG Sodium ABG Chloride ABG Glucose Oxyhemoglobin Carboxyhemoglobin Sodium Potassium Chloride Carbon Dioxide BUN Creatinine Glucose POC Glucose 256 H 139 H Hemoglobin A1c Ferritin AST ALT Alkaline Phosphatase Lactate Dehydrogenase C-Reactive Protein Total Protein Albumin Arterial Blood Glucose Coronavirus (PCR) 05/18/21 05/18/21 05/18/21 15:06 15:06 16:08 WBC MCHC RDW Lymph % (Auto) Lymph # (Auto) Baso # (Auto) Seg Neutrophils % Seg Neuts % (Manual) Lymphocytes % (Manual) Seg Neutrophils # Seg Neutrophils # Man Lymphocytes # (Manual) D-Dimer ABG pH POC ABG pO2 ABG pO2 ABG HCO3 ABG O2 Saturation ABG Base Excess ABG Oxyhemoglobin ABG Sodium ABG Chloride ABG Glucose Oxyhemoglobin Carboxyhemoglobin Sodium Potassium Chloride Carbon Dioxide BUN Creatinine Glucose POC Glucose 178 H Hemoglobin A1c Ferritin 289.6 H AST ALT Alkaline Phosphatase Lactate Dehydrogenase 605 H C-Reactive Protein Total Protein Albumin Arterial Blood Glucose Coronavirus (PCR) 05/18/21 05/19/21 05/19/21 21:22 11:57 15:26 WBC MCHC RDW Lymph % (Auto) Lymph # (Auto) Baso # (Auto) Seg Neutrophils % Seg Neuts % (Manual) Lymphocytes % (Manual) Seg Neutrophils # Seg Neutrophils # Man Lymphocytes # (Manual) D-Dimer ABG pH POC ABG pO2 ABG pO2 ABG HCO3 ABG O2 Saturation ABG Base Excess ABG Oxyhemoglobin ABG Sodium ABG Chloride ABG Glucose Oxyhemoglobin Carboxyhemoglobin Sodium Potassium Chloride Carbon Dioxide BUN Creatinine Glucose POC Glucose 241 H 201 H 209 H Hemoglobin A1c Ferritin AST ALT Alkaline Phosphatase Lactate Dehydrogenase C-Reactive Protein Total Protein Albumin Arterial Blood Glucose Coronavirus (PCR) 05/19/21 05/20/21 05/20/21 20:59 07:38 08:01 WBC MCHC RDW 19.7 H Lymph % (Auto) 8.3 L Lymph # (Auto) 0.8 L Baso # (Auto) Seg Neutrophils % 88.6 H Seg Neuts % (Manual) Lymphocytes % (Manual) Seg Neutrophils # 8.4 H Seg Neutrophils # Man Lymphocytes # (Manual) D-Dimer ABG pH POC ABG pO2 ABG pO2 ABG HCO3 ABG O2 Saturation ABG Base Excess ABG Oxyhemoglobin ABG Sodium ABG Chloride ABG Glucose Oxyhemoglobin Carboxyhemoglobin Sodium Potassium Chloride Carbon Dioxide BUN Creatinine Glucose POC Glucose 226 H 130 H Hemoglobin A1c Ferritin AST ALT Alkaline Phosphatase Lactate Dehydrogenase C-Reactive Protein Total Protein Albumin Arterial Blood Glucose Coronavirus (PCR) 05/20/21 05/20/21 05/20/21 08:01 11:00 16:43 WBC MCHC RDW Lymph % (Auto) Lymph # (Auto) Baso # (Auto) Seg Neutrophils % Seg Neuts % (Manual) Lymphocytes % (Manual) Seg Neutrophils # Seg Neutrophils # Man Lymphocytes # (Manual) D-Dimer ABG pH POC ABG pO2 ABG pO2 ABG HCO3 ABG O2 Saturation ABG Base Excess ABG Oxyhemoglobin ABG Sodium ABG Chloride ABG Glucose Oxyhemoglobin Carboxyhemoglobin Sodium Potassium Chloride Carbon Dioxide BUN 18 H Creatinine 0.2 L Glucose 132 H POC Glucose 237 H 240 H Hemoglobin A1c Ferritin AST ALT Alkaline Phosphatase Lactate Dehydrogenase C-Reactive Protein Total Protein Albumin Arterial Blood Glucose Coronavirus (PCR) 05/20/21 05/21/21 05/21/21 21:21 07:35 11:32 WBC MCHC RDW Lymph % (Auto) Lymph # (Auto) Baso # (Auto) Seg Neutrophils % Seg Neuts % (Manual) Lymphocytes % (Manual) Seg Neutrophils # Seg Neutrophils # Man Lymphocytes # (Manual) D-Dimer ABG pH POC ABG pO2 ABG pO2 ABG HCO3 ABG O2 Saturation ABG Base Excess ABG Oxyhemoglobin ABG Sodium ABG Chloride ABG Glucose Oxyhemoglobin Carboxyhemoglobin Sodium Potassium Chloride Carbon Dioxide BUN Creatinine Glucose POC Glucose 241 H 162 H 171 H Hemoglobin A1c Ferritin AST ALT Alkaline Phosphatase Lactate Dehydrogenase C-Reactive Protein Total Protein Albumin Arterial Blood Glucose Coronavirus (PCR) 05/21/21 05/21/21 05/22/21 16:22 20:43 05:14 WBC MCHC RDW Lymph % (Auto) Lymph # (Auto) Baso # (Auto) Seg Neutrophils % Seg Neuts % (Manual) Lymphocytes % (Manual) Seg Neutrophils # Seg Neutrophils # Man Lymphocytes # (Manual) D-Dimer ABG pH POC ABG pO2 ABG pO2 ABG HCO3 ABG O2 Saturation ABG Base Excess ABG Oxyhemoglobin ABG Sodium ABG Chloride ABG Glucose Oxyhemoglobin Carboxyhemoglobin Sodium Potassium Chloride Carbon Dioxide BUN Creatinine Glucose POC Glucose 244 H 299 H 140 H Hemoglobin A1c Ferritin AST ALT Alkaline Phosphatase Lactate Dehydrogenase C-Reactive Protein Total Protein Albumin Arterial Blood Glucose Coronavirus (PCR) 05/22/21 05/22/21 05/22/21 08:45 11:54 16:15 WBC MCHC RDW Lymph % (Auto) Lymph # (Auto) Baso # (Auto) Seg Neutrophils % Seg Neuts % (Manual) Lymphocytes % (Manual) Seg Neutrophils # Seg Neutrophils # Man Lymphocytes # (Manual) D-Dimer ABG pH POC ABG pO2 ABG pO2 ABG HCO3 ABG O2 Saturation ABG Base Excess ABG Oxyhemoglobin ABG Sodium ABG Chloride ABG Glucose Oxyhemoglobin Carboxyhemoglobin Sodium Potassium Chloride Carbon Dioxide BUN Creatinine Glucose POC Glucose 133 H 265 H 221 H Hemoglobin A1c Ferritin AST ALT Alkaline Phosphatase Lactate Dehydrogenase C-Reactive Protein Total Protein Albumin Arterial Blood Glucose Coronavirus (PCR) 05/22/21 05/23/21 05/23/21 21:43 08:20 09:50 WBC MCHC RDW Lymph % (Auto) Lymph # (Auto) Baso # (Auto) Seg Neutrophils % Seg Neuts % (Manual) Lymphocytes % (Manual) Seg Neutrophils # Seg Neutrophils # Man Lymphocytes # (Manual) D-Dimer 910.38 H ABG pH POC ABG pO2 ABG pO2 ABG HCO3 ABG O2 Saturation ABG Base Excess ABG Oxyhemoglobin ABG Sodium ABG Chloride ABG Glucose Oxyhemoglobin Carboxyhemoglobin Sodium Potassium Chloride Carbon Dioxide BUN Creatinine Glucose POC Glucose 262 H 140 H Hemoglobin A1c Ferritin AST ALT Alkaline Phosphatase Lactate Dehydrogenase C-Reactive Protein Total Protein Albumin Arterial Blood Glucose Coronavirus (PCR) 05/23/21 05/23/21 05/23/21 09:50 09:50 10:52 WBC MCHC RDW Lymph % (Auto) Lymph # (Auto) Baso # (Auto) Seg Neutrophils % Seg Neuts % (Manual) Lymphocytes % (Manual) Seg Neutrophils # Seg Neutrophils # Man Lymphocytes # (Manual) D-Dimer ABG pH POC ABG pO2 ABG pO2 ABG HCO3 ABG O2 Saturation ABG Base Excess ABG Oxyhemoglobin ABG Sodium ABG Chloride ABG Glucose Oxyhemoglobin Carboxyhemoglobin Sodium Potassium Chloride Carbon Dioxide BUN Creatinine Glucose POC Glucose 241 H Hemoglobin A1c Ferritin 244.9 H AST ALT Alkaline Phosphatase Lactate Dehydrogenase 584 H C-Reactive Protein Total Protein Albumin Arterial Blood Glucose Coronavirus (PCR) 05/23/21 05/23/21 05/24/21 17:24 21:52 07:44 WBC MCHC RDW Lymph % (Auto) Lymph # (Auto) Baso # (Auto) Seg Neutrophils % Seg Neuts % (Manual) Lymphocytes % (Manual) Seg Neutrophils # Seg Neutrophils # Man Lymphocytes # (Manual) D-Dimer ABG pH POC ABG pO2 ABG pO2 ABG HCO3 ABG O2 Saturation ABG Base Excess ABG Oxyhemoglobin ABG Sodium ABG Chloride ABG Glucose Oxyhemoglobin Carboxyhemoglobin Sodium Potassium Chloride Carbon Dioxide BUN Creatinine Glucose POC Glucose 197 H 289 H 161 H Hemoglobin A1c Ferritin AST ALT Alkaline Phosphatase Lactate Dehydrogenase C-Reactive Protein Total Protein Albumin Arterial Blood Glucose Coronavirus (PCR) 05/24/21 05/24/21 05/24/21 11:17 17:51 21:26 WBC MCHC RDW Lymph % (Auto) Lymph # (Auto) Baso # (Auto) Seg Neutrophils % Seg Neuts % (Manual) Lymphocytes % (Manual) Seg Neutrophils # Seg Neutrophils # Man Lymphocytes # (Manual) D-Dimer ABG pH POC ABG pO2 ABG pO2 ABG HCO3 ABG O2 Saturation ABG Base Excess ABG Oxyhemoglobin ABG Sodium ABG Chloride ABG Glucose Oxyhemoglobin Carboxyhemoglobin Sodium Potassium Chloride Carbon Dioxide BUN Creatinine Glucose POC Glucose 308 H 175 H 198 H Hemoglobin A1c Ferritin AST ALT Alkaline Phosphatase Lactate Dehydrogenase C-Reactive Protein Total Protein Albumin Arterial Blood Glucose Coronavirus (PCR) 05/25/21 05/25/21 05/25/21 08:14 11:13 17:13 WBC MCHC RDW Lymph % (Auto) Lymph # (Auto) Baso # (Auto) Seg Neutrophils % Seg Neuts % (Manual) Lymphocytes % (Manual) Seg Neutrophils # Seg Neutrophils # Man Lymphocytes # (Manual) D-Dimer ABG pH POC ABG pO2 ABG pO2 ABG HCO3 ABG O2 Saturation ABG Base Excess ABG Oxyhemoglobin ABG Sodium ABG Chloride ABG Glucose Oxyhemoglobin Carboxyhemoglobin Sodium Potassium Chloride Carbon Dioxide BUN Creatinine Glucose POC Glucose 203 H 339 H 235 H Hemoglobin A1c Ferritin AST ALT Alkaline Phosphatase Lactate Dehydrogenase C-Reactive Protein Total Protein Albumin Arterial Blood Glucose Coronavirus (PCR) 05/25/21 05/26/21 05/26/21 21:03 07:33 11:19 WBC MCHC RDW Lymph % (Auto) Lymph # (Auto) Baso # (Auto) Seg Neutrophils % Seg Neuts % (Manual) Lymphocytes % (Manual) Seg Neutrophils # Seg Neutrophils # Man Lymphocytes # (Manual) D-Dimer ABG pH POC ABG pO2 ABG pO2 ABG HCO3 ABG O2 Saturation ABG Base Excess ABG Oxyhemoglobin ABG Sodium ABG Chloride ABG Glucose Oxyhemoglobin Carboxyhemoglobin Sodium Potassium Chloride Carbon Dioxide BUN Creatinine Glucose POC Glucose 263 H 156 H 288 H Hemoglobin A1c Ferritin AST ALT Alkaline Phosphatase Lactate Dehydrogenase C-Reactive Protein Total Protein Albumin Arterial Blood Glucose Coronavirus (PCR) 05/26/21 05/26/21 05/27/21 16:26 20:55 07:38 WBC MCHC RDW Lymph % (Auto) Lymph # (Auto) Baso # (Auto) Seg Neutrophils % Seg Neuts % (Manual) Lymphocytes % (Manual) Seg Neutrophils # Seg Neutrophils # Man Lymphocytes # (Manual) D-Dimer ABG pH POC ABG pO2 ABG pO2 ABG HCO3 ABG O2 Saturation ABG Base Excess ABG Oxyhemoglobin ABG Sodium ABG Chloride ABG Glucose Oxyhemoglobin Carboxyhemoglobin Sodium Potassium Chloride Carbon Dioxide BUN Creatinine Glucose POC Glucose 286 H 293 H 115 H Hemoglobin A1c Ferritin AST ALT Alkaline Phosphatase Lactate Dehydrogenase C-Reactive Protein Total Protein Albumin Arterial Blood Glucose Coronavirus (PCR) 05/27/21 05/27/21 05/27/21 11:46 15:58 21:02 WBC MCHC RDW Lymph % (Auto) Lymph # (Auto) Baso # (Auto) Seg Neutrophils % Seg Neuts % (Manual) Lymphocytes % (Manual) Seg Neutrophils # Seg Neutrophils # Man Lymphocytes # (Manual) D-Dimer ABG pH POC ABG pO2 ABG pO2 ABG HCO3 ABG O2 Saturation ABG Base Excess ABG Oxyhemoglobin ABG Sodium ABG Chloride ABG Glucose Oxyhemoglobin Carboxyhemoglobin Sodium Potassium Chloride Carbon Dioxide BUN Creatinine Glucose POC Glucose 260 H 318 H 246 H Hemoglobin A1c Ferritin AST ALT Alkaline Phosphatase Lactate Dehydrogenase C-Reactive Protein Total Protein Albumin Arterial Blood Glucose Coronavirus (PCR) 05/28/21 05/28/21 05/28/21 07:34 11:31 16:36 WBC MCHC RDW Lymph % (Auto) Lymph # (Auto) Baso # (Auto) Seg Neutrophils % Seg Neuts % (Manual) Lymphocytes % (Manual) Seg Neutrophils # Seg Neutrophils # Man Lymphocytes # (Manual) D-Dimer ABG pH POC ABG pO2 ABG pO2 ABG HCO3 ABG O2 Saturation ABG Base Excess ABG Oxyhemoglobin ABG Sodium ABG Chloride ABG Glucose Oxyhemoglobin Carboxyhemoglobin Sodium Potassium Chloride Carbon Dioxide BUN Creatinine Glucose POC Glucose 185 H 297 H 183 H Hemoglobin A1c Ferritin AST ALT Alkaline Phosphatase Lactate Dehydrogenase C-Reactive Protein Total Protein Albumin Arterial Blood Glucose Coronavirus (PCR) 05/28/21 05/29/21 05/29/21 21:19 07:34 11:19 WBC MCHC RDW Lymph % (Auto) Lymph # (Auto) Baso # (Auto) Seg Neutrophils % Seg Neuts % (Manual) Lymphocytes % (Manual) Seg Neutrophils # Seg Neutrophils # Man Lymphocytes # (Manual) D-Dimer ABG pH POC ABG pO2 ABG pO2 ABG HCO3 ABG O2 Saturation ABG Base Excess ABG Oxyhemoglobin ABG Sodium ABG Chloride ABG Glucose Oxyhemoglobin Carboxyhemoglobin Sodium Potassium Chloride Carbon Dioxide BUN Creatinine Glucose POC Glucose 274 H 139 H 293 H Hemoglobin A1c Ferritin AST ALT Alkaline Phosphatase Lactate Dehydrogenase C-Reactive Protein Total Protein Albumin Arterial Blood Glucose Coronavirus (PCR) 05/29/21 05/29/21 05/30/21 16:36 22:44 05:55 WBC MCHC RDW 21.3 H Lymph % (Auto) 8.0 L Lymph # (Auto) 0.6 L Baso # (Auto) Seg Neutrophils % 88.6 H Seg Neuts % (Manual) Lymphocytes % (Manual) Seg Neutrophils # Seg Neutrophils # Man Lymphocytes # (Manual) D-Dimer ABG pH POC ABG pO2 ABG pO2 ABG HCO3 ABG O2 Saturation ABG Base Excess ABG Oxyhemoglobin ABG Sodium ABG Chloride ABG Glucose Oxyhemoglobin Carboxyhemoglobin Sodium Potassium Chloride Carbon Dioxide BUN Creatinine Glucose POC Glucose 299 H 160 H Hemoglobin A1c Ferritin AST ALT Alkaline Phosphatase Lactate Dehydrogenase C-Reactive Protein Total Protein Albumin Arterial Blood Glucose Coronavirus (PCR) 05/30/21 05/30/21 05/30/21 05:55 08:04 11:13 WBC MCHC RDW Lymph % (Auto) Lymph # (Auto) Baso # (Auto) Seg Neutrophils % Seg Neuts % (Manual) Lymphocytes % (Manual) Seg Neutrophils # Seg Neutrophils # Man Lymphocytes # (Manual) D-Dimer ABG pH POC ABG pO2 ABG pO2 ABG HCO3 ABG O2 Saturation ABG Base Excess ABG Oxyhemoglobin ABG Sodium ABG Chloride ABG Glucose Oxyhemoglobin Carboxyhemoglobin Sodium Potassium Chloride Carbon Dioxide BUN 19 H Creatinine 0.2 L Glucose 209 H POC Glucose 157 H 275 H Hemoglobin A1c Ferritin AST ALT Alkaline Phosphatase Lactate Dehydrogenase C-Reactive Protein Total Protein Albumin Arterial Blood Glucose Coronavirus (PCR) 05/30/21 05/30/21 05/31/21 17:08 22:12 07:36 WBC MCHC RDW Lymph % (Auto) Lymph # (Auto) Baso # (Auto) Seg Neutrophils % Seg Neuts % (Manual) Lymphocytes % (Manual) Seg Neutrophils # Seg Neutrophils # Man Lymphocytes # (Manual) D-Dimer ABG pH POC ABG pO2 ABG pO2 ABG HCO3 ABG O2 Saturation ABG Base Excess ABG Oxyhemoglobin ABG Sodium ABG Chloride ABG Glucose Oxyhemoglobin Carboxyhemoglobin Sodium Potassium Chloride Carbon Dioxide BUN Creatinine Glucose POC Glucose 154 H 275 H 138 H Hemoglobin A1c Ferritin AST ALT Alkaline Phosphatase Lactate Dehydrogenase C-Reactive Protein Total Protein Albumin Arterial Blood Glucose Coronavirus (PCR) 05/31/21 05/31/21 05/31/21 11:17 16:55 21:25 WBC MCHC RDW Lymph % (Auto) Lymph # (Auto) Baso # (Auto) Seg Neutrophils % Seg Neuts % (Manual) Lymphocytes % (Manual) Seg Neutrophils # Seg Neutrophils # Man Lymphocytes # (Manual) D-Dimer ABG pH POC ABG pO2 ABG pO2 ABG HCO3 ABG O2 Saturation ABG Base Excess ABG Oxyhemoglobin ABG Sodium ABG Chloride ABG Glucose Oxyhemoglobin Carboxyhemoglobin Sodium Potassium Chloride Carbon Dioxide BUN Creatinine Glucose POC Glucose 258 H 215 H 318 H Hemoglobin A1c Ferritin AST ALT Alkaline Phosphatase Lactate Dehydrogenase C-Reactive Protein Total Protein Albumin Arterial Blood Glucose Coronavirus (PCR) 06/01/21 06/01/21 06/01/21 07:23 11:38 16:52 WBC MCHC RDW Lymph % (Auto) Lymph # (Auto) Baso # (Auto) Seg Neutrophils % Seg Neuts % (Manual) Lymphocytes % (Manual) Seg Neutrophils # Seg Neutrophils # Man Lymphocytes # (Manual) D-Dimer ABG pH POC ABG pO2 ABG pO2 ABG HCO3 ABG O2 Saturation ABG Base Excess ABG Oxyhemoglobin ABG Sodium ABG Chloride ABG Glucose Oxyhemoglobin Carboxyhemoglobin Sodium Potassium Chloride Carbon Dioxide BUN Creatinine Glucose POC Glucose 157 H 259 H 150 H Hemoglobin A1c Ferritin AST ALT Alkaline Phosphatase Lactate Dehydrogenase C-Reactive Protein Total Protein Albumin Arterial Blood Glucose Coronavirus (PCR) 06/01/21 06/02/21 06/02/21 23:16 05:34 05:34 WBC MCHC RDW 21.3 H Lymph % (Auto) 9.6 L Lymph # (Auto) 0.6 L Baso # (Auto) Seg Neutrophils % 86.2 H Seg Neuts % (Manual) Lymphocytes % (Manual) Seg Neutrophils # Seg Neutrophils # Man Lymphocytes # (Manual) D-Dimer ABG pH POC ABG pO2 ABG pO2 ABG HCO3 ABG O2 Saturation ABG Base Excess ABG Oxyhemoglobin ABG Sodium ABG Chloride ABG Glucose Oxyhemoglobin Carboxyhemoglobin Sodium 136 L Potassium Chloride Carbon Dioxide BUN Creatinine 0.2 L Glucose 186 H POC Glucose 247 H Hemoglobin A1c Ferritin AST ALT 69 H Alkaline Phosphatase Lactate Dehydrogenase C-Reactive Protein Total Protein 6.1 L Albumin 3.2 L Arterial Blood Glucose Coronavirus (PCR) 06/02/21 11:25 WBC MCHC RDW Lymph % (Auto) Lymph # (Auto) Baso # (Auto) Seg Neutrophils % Seg Neuts % (Manual) Lymphocytes % (Manual) Seg Neutrophils # Seg Neutrophils # Man Lymphocytes # (Manual) D-Dimer ABG pH POC ABG pO2 ABG pO2 ABG HCO3 ABG O2 Saturation ABG Base Excess ABG Oxyhemoglobin ABG Sodium ABG Chloride ABG Glucose Oxyhemoglobin Carboxyhemoglobin Sodium Potassium Chloride Carbon Dioxide BUN Creatinine Glucose POC Glucose 157 H Hemoglobin A1c Ferritin AST ALT Alkaline Phosphatase Lactate Dehydrogenase C-Reactive Protein Total Protein Albumin Arterial Blood Glucose Coronavirus (PCR)
[2021-06-02] MEDS: clonazePAM 0.5 MG TAB PO PRN (21:36)
[2021-06-02] MEDS: SENNOSIDES 8.6 MG TAB PO SCH (21:37)
[2021-06-02] MEDS: ENOXAPARIN 40 MG/0.4 ML INJ SUB-Q SCH (21:37)
[2021-06-03] MEDS: methylPREDNISolone Sod Succinate 125 MG/2 ML INJ IV SCH ×3 (05:23→21:54)
--- NOTE | 2021-06-03 05:53 | Progress Note ---
Assessment and Plan Assessment and Plan Assessment and plan: -Acute hypoxic resp failure due to covid19 -S/p BiPAP, Tolerated well now only on nasal cannula. HFNC o2 35 liters --Attempt to titrate more aggressively led to patient increasing high flow O2 back to 30%. -See RT notes for titration -Albuterol as needed -Pulmonary hygiene -Pulmonology following CTA chest ordered, patient could not tolerate --covid19 pna; --sepsis; -zinc/vitC/D -methylpred 125 mg every 8; wean as appropriate -Infectious disease consulted, -S/p Actemra and remdesivir -Trend temperature and WBC curve -Follow culture data --Oral candidiasis Nystatin solution ordered. Resolving. -- hyponatremia Resolved Sodium is 142 -- coagulopathy of covid; on AC -Subcu heparin -Trend CBC-no need for transfusion. -Transfuse for hemoglobin less than 7 -Bilateral lower extremity Doppler ultrasounds negative for DVT ; no CTA or VQ s can to rule out PE -- hyperglycemia; [id number] stable at this time. -Lantus HS -SSI AC/HS -Avoid hypoglycemia -- risk for protein gisella malnutrition given inc metabolic demand with resp insu fficiency -TPN earlier in hospital admission due to BiPAP however now patient is tolerating p.o. -Patient on a GI soft diet with aspiration precautions -Nutrition following -Bowel regimen: Colace, senna, MiraLAX -PPI --Anxiety Likely due to severe hypoxia Has shown some signs of improvement over the past 24 hours able to wean oxygen some. -Follows commands and RAY -PRN pain and anxiety meds -Patient is [place]-speaking but understands Spanish Added Ambien for insomnia. Anxiety resolving. add klonipin for anxiety --viral conjunctivitis right eye: Resolved would like drops for her eyes again. States eyes are dry. -Right eye- s/p 5 d course of cipro drops. suspect viral conjunctivitis. merritt bricating eye drops. supportive management. Erythema has resolved --Septic shock- resolved -S/p pressors now discontinued -MAP goal 65 -Pressure monitor per protocol Subjective Date of service: 06/02/21 Principal diagnosis: Covid-19 Interval history: 50 YO Female with GERD, Obesity, HLD presents to ED for evaluation. Patient reports "I cannot breathe". Patient states that she has experienced subjective fever, shortness of breath, malaise, body aches, dry cough, and shortness of breath over the past 1 week with progressively worsening symptoms over the same timeframe. EMS was notified and upon arrival the patient was found to be in distress and subsequent transported to [facility] for further care and evaluation of the aforementioned symptoms. The patient was seen and evaluated in the emergency department. All lab and imaging studies reviewed. Patient found to have a pulse oximetry of 86% with exertion on room air which is consistent with acute hypoxemic respiratory failure. Patient with chest x-ray which revealed bilateral pneumonia. Patient admitted to medical floor and initiated him on pneumonia protocol as well as coronavirus protocol. Patient knowledges fever but denies chills, chest pain, palpitation, skin rash, recent ill contacts, or known exposure to COVID-19. Prior admission on 01/21/2017 reviewed. All medication listed at time of admission has been reconciled. Patient is unvaccinated for coronavirus infection. 06/01/2021 Patient admitted for acute respiratory failure with hypoxia Weaning in progress Pulmonary consult appreciated COVID-pneumonia On high flow nasal cannula oxygen at 35 L. Otherwise doing well Patient wants a campus police officer 06/02/2021 Patient still on high flow nasal cannula oxygen 35 L high flow and 80% Objective - Constitutional Vitals: Vital Signs - 12hr 06/02/21 06/02/21 06/02/21 22:00 22:51 23:11 Temperature 98.1 F Pulse Rate 79 Respiratory 20 Rate Blood Pressure 109/65 O2 Sat by Pulse 95 97 97 Oximetry 06/03/21 03:25 Temperature Pulse Rate Respiratory Rate Blood Pressure O2 Sat by Pulse 94 Oximetry General appearance: Present: severe distress - EENT Eyes: PERRL, EOM intact ENT: hearing intact, clear oral mucosa Ears: bilateral: normal - Neck Neck: supple, normal ROM - Respiratory Respiratory effort: normal Respiratory: bilateral: CTA - Breasts Breasts: normal - Cardiovascular Heart rate: 100 Rhythm: regular Heart Sounds: Present: S1 & S2. Absent: gallop, rub Extremities: pulses intact, No edema, normal color, Full ROM - Gastrointestinal General gastrointestinal: Present: soft, non-tender, non-distended, normal bowel sounds Rectal Exam: deferred - Genitourinary Female genitourinary: normal - Integumentary Integumentary: clear, warm, dry - Musculoskeletal Musculoskeletal: 1, strength equal bilaterally - Neurologic Neurologic: moves all extremities - Psychiatric Psychiatric: memory intact, appropriate mood/affect, intact judgment & insight - Labs CBC & Chem 7: 06/02/21 05:34 06/02/21 05:34 Labs: Abnormal lab results 06/02/21 06/02/21 06/02/21 Range/Units 05:34 05:34 11:25 RDW 21.3 H (13.2-15.2) % Lymph % (Auto) 9.6 L (13.4-35.0) % Lymph # (Auto) 0.6 L (1.2-5.4) K/mm3 Seg Neutrophils % 86.2 H (40.0-70.0) % Sodium 136 L (137-145) mmol/L Creatinine 0.2 L (0.6-1.2) mg/dL Glucose 186 H (65-100) mg/dL POC Glucose 157 H (70-105) mg/dL ALT 69 H (7-56) units/L Total Protein 6.1 L (6.3-8.2) g/dL Albumin 3.2 L (3.9-5) g/dL 06/02/21 06/02/21 Range/Units 18:23 21:32 RDW (13.2-15.2) % Lymph % (Auto) (13.4-35.0) % Lymph # (Auto) (1.2-5.4) K/mm3 Seg Neutrophils % (40.0-70.0) % Sodium (137-145) mmol/L Creatinine (0.6-1.2) mg/dL Glucose (65-100) mg/dL POC Glucose 299 H 246 H (70-105) mg/dL ALT (7-56) units/L Total Protein (6.3-8.2) g/dL Albumin (3.9-5) g/dL
--- NOTE | 2021-06-03 09:58 | Progress Note ---
Assessment and Plan Assessment and plan: --Acute respiratory failure with hypoxia/COVID-19 infection Patient is currently requiring 35 L of high flow nasal cannula oxygen and BiPAP Patient is in mild distress, wean as tolerated Prone positioning, Home O2 evaluation Continue management per COVID-19 guidelines Wean as tolerated, pulmonary hygiene Pulmonary following --Sepsis secondary to COVID-19 pneumonia; Continue zinc sulfate, vitamin C, oral vitamin D3 Patient is on steroid, completed remdesivir and Actemra Prone positioning, home O2 evaluation Follow inflammatory markers ID following --oral candidiasis Continue oral nystatin solution --hyponatremia Resolved, closely monitor electrolytes sodium is 142 --coagulopathy; -Subcu heparin -Trend CBC-no need for transfusion. -Transfuse for hemoglobin less than 7 -Bilateral lower extremity Doppler ultrasounds negative for DVT ; no CTA or VQ scan to rule out PE --hyperglycemia Accu-Cheks stable at this time. -Lantus HS -SSI AC/HS -Avoid hypoglycemia --moderate protein calorie malnutrition -- risk for protein gisella malnutrition given inc metabolic demand with resp insufficiency -TPN earlier in hospital admission due to BiPAP however now patient is tolerating p.o. -Patient on a GI soft diet with aspiration precautions -Nutrition following -Bowel regimen: Colace, senna, MiraLAX -PPI --generalized anxiety Likely due to severe hypoxia Has shown some signs of improvement over the past 24 hours able to wean oxygen some. -Follows commands and RAY -PRN pain and anxiety meds -Patient is Syrian-speaking but understands Greek Added Ambien for insomnia. Anxiety resolving. add klonipin for anxiety --viral conjunctivitis right eye: Resolved would like drops for her eyes again. States eyes are dry. -Right eye- s/p 5 d course of cipro drops. suspect viral conjunctivitis. lubricating eye drops. supportive management. Erythema has resolved --septic shock s/p vasopressors .resolved Blood pressures reasonable level. Continue supportive care --DVT prophylaxis; Subcu Lovenox --DC planning; Per case management, , home O2 evaluation, possible home health upon discharge if needed Subjective Date of service: 06/03/21 Principal diagnosis: Covid-19 Interval history: 50 YO Female with GERD, Obesity, HLD presents to ED for evaluation. Patient reports "I cannot breathe". Patient states that she has experienced subjective fever, shortness of breath, malaise, body aches, dry cough, and shortness of breath over the past 1 week with progressively worsening symptoms over the same timeframe. EMS was notified and upon arrival the patient was found to be in distress and subsequent transported to [facility] for further care and evaluation of the aforementioned symptoms. The patient was seen and evaluated in the emergency department. All lab and imaging studies reviewed. Patient found to have a pulse oximetry of 86% with exertion on room air which is consistent with acute hypoxemic respiratory failure. Patient with chest x-ray which revealed bilateral pneumonia. Patient admitted to medical floor and initiated him on pneumonia protocol as well as coronavirus protocol. Patient knowledges fever but denies chills, chest pain, palpitation, skin rash, recent ill contacts, or known exposure to COVID-19. Prior admission on 01/21/2017 reviewed. All medication listed at time of admission has been reconciled. Patient is unvaccinated for coronavirus infection. 06/01/2021 Patient admitted for acute respiratory failure with hypoxia Weaning in progress Pulmonary consult appreciated COVID-pneumonia On high flow nasal cannula oxygen at 35 L. Otherwise doing well Patient wants a ore grader 06/02/2021 Patient still on high flow nasal cannula oxygen 35 L high flow and 80% 06/03/2021; Patient continues to require high flow nasal cannula oxygen 35 L, BiPAP, wean as tolerated History Interval history: I have seen and examined the patient at the bedside Patient's chart and medications reviewed Patient feels slightly better, continues to be on 35 L of high flow oxygen and BiPAP Patient is in mild distress vital signs reviewed Hospitalist Physical - Constitutional Vitals: Temp Pulse Resp BP Pulse Ox 98.1 F 79 20 109/65 94 06/02/21 23:11 06/02/21 23:11 06/02/21 23:11 06/02/21 23:11 06/03/21 03:25 General appearance: Present: mild distress, obese - EENT Eyes: Present: PERRL, EOM intact - Neck Neck: Present: supple, normal ROM - Respiratory Respiratory effort: normal Respiratory: bilateral: diminished, negative: rales, rhonchi, wheezing - Cardiovascular Rhythm: regular Heart Sounds: Present: S1 & S2 - Extremities Extremities: no ischemia, pulses intact - Abdominal General gastrointestinal: soft, non-tender, non-distended, normal bowel sounds - Integumentary Integumentary: Present: clear, warm - Psychiatric Psychiatric: appropriate mood/affect, cooperative - Neurologic Neurologic: CNII-XII intact, moves all extremities Results - Labs CBC & Chem 7: 06/02/21 05:34 06/02/21 05:34 Labs: Laboratory Last Values WBC 6.2 K/mm3 (4.5-11.0) 06/02/21 05:34 RBC 4.29 M/mm3 (3.65-5.03) 06/02/21 05:34 Hgb 13.6 gm/dl (10.1-14.3) 06/02/21 05:34 Hct 40.5 % (30.3-42.9) 06/02/21 05:34 MCV 95 fl (79-97) 06/02/21 05:34 MCH 32 pg (28-32) 06/02/21 05:34 MCHC 34 % (30-34) 06/02/21 05:34 RDW 21.3 % (13.2-15.2) H 06/02/21 05:34 Plt Count 204 K/mm3 (140-440) 06/02/21 05:34 Lymph % (Auto) 9.6 % (13.4-35.0) L 06/02/21 05:34 [place] % (Auto) 3.9 % (0.0-7.3) 06/02/21 05:34 Eos % (Auto) 0.0 % (0.0-4.3) 06/02/21 05:34 Baso % (Auto) 0.3 % (0.0-1.8) 06/02/21 05:34 Lymph # (Auto) 0.6 K/mm3 (1.2-5.4) L 06/02/21 05:34 [place] # (Auto) 0.2 K/mm3 (0.0-0.8) 06/02/21 05:34 Eos # (Auto) 0.0 K/mm3 (0.0-0.4) 06/02/21 05:34 Baso # (Auto) 0.0 K/mm3 (0.0-0.1) 06/02/21 05:34 Add Manual Diff Complete 05/12/21 04:05 Total Counted 100 05/12/21 04:05 Seg Neutrophils % 86.2 % (40.0-70.0) H 06/02/21 05:34 Seg Neuts % (Manual) 94.0 % (40.0-70.0) H 05/12/21 04:05 Band Neutrophils % 1.0 % 05/12/21 04:05 Lymphocytes % (Manual) 4.0 % (13.4-35.0) L 05/12/21 04:05 Monocytes % (Manual) 1.0 % (0.0-7.3) 05/12/21 04:05 Nucleated RBC % Not Reportable 05/12/21 04:05 Seg Neutrophils # 5.4 K/mm3 (1.8-7.7) 06/02/21 05:34 Seg Neutrophils # Man 6.4 K/mm3 (1.8-7.7) 05/12/21 04:05 Band Neutrophils # 0.1 K/mm3 05/12/21 04:05 Lymphocytes # (Manual) 0.3 K/mm3 (1.2-5.4) L 05/12/21 04:05 Abs React Lymphs (Man) 0.0 K/mm3 05/12/21 04:05 Monocytes # (Manual) 0.1 K/mm3 (0.0-0.8) 05/12/21 04:05 Eosinophils # (Manual) 0.0 K/mm3 (0.0-0.4) 05/12/21 04:05 Basophils # (Manual) 0.0 K/mm3 (0.0-0.1) 05/12/21 04:05 Metamyelocytes # 0.0 K/mm3 05/12/21 04:05 Myelocytes # 0.0 K/mm3 05/12/21 04:05 Promyelocytes # 0.0 K/mm3 05/12/21 04:05 Blast Cells # 0.0 K/mm3 05/12/21 04:05 WBC Morphology Not Reportable 05/12/21 04:05 Hypersegmented Neuts Not Reportable 05/12/21 04:05 Hyposegmented Neuts Not Reportable 05/12/21 04:05 Hypogranular Neuts Not Reportable 05/12/21 04:05 Smudge Cells Not Reportable 05/12/21 04:05 Toxic Granulation Not Reportable 05/12/21 04:05 Toxic Vacuolation Not Reportable 05/12/21 04:05 Dohle Bodies Not Reportable 05/12/21 04:05 Pelger-Huet Anomaly Not Reportable 05/12/21 04:05 Janelle Rods Not Reportable 05/12/21 04:05 Platelet Estimate Consistent w auto 05/12/21 04:05 Clumped Platelets Not Reportable 05/12/21 04:05 Plt Clumps, EDTA Not Reportable 05/12/21 04:05 Large Platelets Not Reportable 05/12/21 04:05 Giant Platelets Not Reportable 05/12/21 04:05 Platelet Satelliting Not Reportable 05/12/21 04:05 Plt Morphology Comment Not Reportable 05/12/21 04:05 RBC Morphology Normal 05/12/21 04:05 Dimorphic RBCs Not Reportable 05/12/21 04:05 Polychromasia Not Reportable 05/12/21 04:05 Hypochromasia Not Reportable 05/12/21 04:05 Poikilocytosis Not Reportable 05/12/21 04:05 Anisocytosis Not Reportable 05/12/21 04:05 Microcytosis Not Reportable 05/12/21 04:05 Macrocytosis Not Reportable 05/12/21 04:05 Spherocytes Not Reportable 05/12/21 04:05 Pappenheimer Bodies Not Reportable 05/12/21 04:05 Sickle Cells Not Reportable 05/12/21 04:05 Target Cells Not Reportable 05/12/21 04:05 Tear Drop Cells Not Reportable 05/12/21 04:05 Ovalocytes Not Reportable 05/12/21 04:05 Helmet Cells Not Reportable 05/12/21 04:05 [place] Bodies Not Reportable 05/12/21 04:05 [place] Rings Not Reportable 05/12/21 04:05 [place] Cells Not Reportable 05/12/21 04:05 Bite Cells Not Reportable 05/12/21 04:05 Crenated Cell Not Reportable 05/12/21 04:05 Elliptocytes Not Reportable 05/12/21 04:05 Acanthocytes (Spur) Not Reportable 05/12/21 04:05 Rouleaux Not Reportable 05/12/21 04:05 Hemoglobin C Crystals Not Reportable 05/12/21 04:05 Schistocytes Not Reportable 05/12/21 04:05 Malaria parasites Not Reportable 05/12/21 04:05 Justin Bodies Not Reportable 05/12/21 04:05 Hem Pathologist Commnt No 05/12/21 04:05 D-Dimer 910.38 ng/mlDDU (0-234) H 05/23/21 09:50 ABG pH 7.403 pH Units (7.350-7.450) 05/14/21 02:23 POC ABG pCO2 45.4 mmHg (32.0-48.0) 05/03/21 04:49 ABG pCO2 50.2 mm Hg 05/14/21 02:23 POC ABG pO2 65.3 mmHg (83-108) L 05/03/21 04:49 ABG pO2 130.3 mm Hg (80.0-90.0) H 05/14/21 02:23 POC ABG HCO3 18.5 05/03/21 04:49 ABG HCO3 30.6 mmol/L (20.0-26.0) H 05/14/21 02:23 ABG O2 Saturation 98.5 % (95.0-99.0) 05/14/21 02:23 ABG O2 Content 17.9 (0.0-44) 05/14/21 02:23 POC ABG Base Excess -8.9 05/03/21 04:49 ABG Base Excess 4.9 mmol/L (-2.0-3.0) H 05/14/21 02:23 ABG Hemoglobin 13.0 gm/dl (12.0-16.0) 05/14/21 02:23 ABG Oxyhemoglobin 87.8 (94-98) L 05/03/21 04:49 ABG Carboxyhemoglobin 1.4 % (0.0-5.0) 05/14/21 02:23 ABG Methemoglobin 0.6 % (0.0-1.5) 05/14/21 02:23 ABG Sodium 133.0 mmol/L (136.0-145.0) L 05/03/21 04:49 ABG Potassium 3.9 mmol/L (3.40-4.50) 05/03/21 04:49 ABG Chloride 97.0 mmol/L (98-107) L 05/03/21 04:49 ABG Glucose 403 mg/dL (65-95) H 05/03/21 04:49 Oxyhemoglobin 96.5 % (95.0-99.0) 05/14/21 02:23 Carboxyhemoglobin 0.6 (0.5-1.5) 05/03/21 04:49 FiO2 90 % 05/14/21 02:23 FiO2 % 100.0 05/03/21 04:49 Sodium 136 mmol/L (137-145) L 06/02/21 05:34 Potassium 4.3 mmol/L (3.6-5.0) 06/02/21 05:34 Chloride 99.0 mmol/L (98-107) 06/02/21 05:34 Carbon Dioxide 29 mmol/L (22-30) 06/02/21 05:34 Anion Gap 12 mmol/L 06/02/21 05:34 BUN 16 mg/dL (7-17) 06/02/21 05:34 Creatinine 0.2 mg/dL (0.6-1.2) L 06/02/21 05:34 Estimated GFR > 60 ml/min 06/02/21 05:34 BUN/Creatinine Ratio 80 % 06/02/21 05:34 Glucose 186 mg/dL (65-100) H 06/02/21 05:34 POC Glucose 153 mg/dL (70-105) H 06/03/21 08:12 Hemoglobin A1c 8.5 % (4-6) H 04/18/21 07:36 Calcium 8.8 mg/dL (8.4-10.2) 06/02/21 05:34 Phosphorus 3.60 mg/dL (2.5-4.5) 05/06/21 05:00 Magnesium 2.00 mg/dL (1.7-2.3) 05/06/21 05:00 Ferritin 244.9 ng/mL (10.0-200.0) H 05/23/21 09:50 Total Bilirubin 0.30 mg/dL (0.1-1.2) 06/02/21 05:34 AST 22 units/L (5-40) 06/02/21 05:34 ALT 69 units/L (7-56) H 06/02/21 05:34 Alkaline Phosphatase 66 units/L (35-129) 06/02/21 05:34 Lactate Dehydrogenase 584 units/L (91-180) H 05/23/21 09:50 C-Reactive Protein 0.10 mg/dL (0.00-1.30) 05/23/21 09:50 Total Protein 6.1 g/dL (6.3-8.2) L 06/02/21 05:34 Albumin 3.2 g/dL (3.9-5) L 06/02/21 05:34 Albumin/Globulin Ratio 1.1 % 06/02/21 05:34 Triglycerides < 9 mg/dL (2-149) 05/03/21 04:30 Procalcitonin < 0.05 ng/mL (<0.15) 05/23/21 09:50 Arterial Blood Glucose 403 mg/dL (65-95) H 05/03/21 04:49 Arterial Blood Ionized Calcium 4.9 mg/dL (4.6-5.3) 05/03/21 04:49 Coronavirus (PCR) Negative (Negative) 05/21/21 09:00 Amos/IV: Voiding Method External Female Catheter Active Medications - Current Medications Current Medications: Generic Name Dose Route Start Last Admin Trade Name Freq PRN Reason Stop Dose Admin Acetaminophen 650 mg 04/16/21 14:00 06/01/21 21:54 Acetaminophen 325 Mg Tab PO 650 mg Q4H PRN Administration Pain MILD(1-3)/Fever >100.5/[place] Albuterol 2.5 mg 04/16/21 13:39 04/21/21 20:39 Albuterol 2.5 Mg/3 Ml Nebu IH 2.5 mg Q4HRT PRN Administration Shortness Of Breath Artificial Tears 2 drops 04/28/21 18:15 05/29/21 13:25 Hypromellose 0.5% Ophth Soln 15 Ml OU 2 drops Q4H PRN Administration Dry Eye(s) Ascorbic Acid 500 mg 04/24/21 10:00 06/02/21 09:02 Ascorbic Acid 500 Mg Tab PO 500 mg QDAY TUTU Administration Cholecalciferol 1,000 unit 04/17/21 10:00 06/02/21 09:03 Cholecalciferol (Vit D3) 1000 Unit (25 Mcg) Tab PO 1,000 unit QDAY TUTU Administration Clonazepam 1 mg 05/29/21 08:06 06/02/21 21:36 Clonazepam 0.5 Mg Tab PO 1 mg Q8H PRN Administration Anxiety Dextrose 50 ml 04/18/21 07:30 04/28/21 09:59 Dextrose 50% In Water (25gm) 50 Ml Syringe IV 50 ml Q30MIN PRN Administration Hypoglycemia Protocol Docusate Sodium 100 mg 04/30/21 10:00 06/02/21 21:39 Docusate Sodium 100 Mg Cap PO 100 mg BID TUTU Administration Enoxaparin Sodium 40 mg 05/19/21 22:00 06/02/21 21:37 Enoxaparin 40 Mg/0.4 Ml Inj SUB-Q 40 mg QDAY@2200 [facility] Administration Protocol Famotidine 20 mg 05/07/21 22:00 06/02/21 21:39 Famotidine 20 Mg Tab PO 20 mg BID TUTU Administration Insulin Glargine 25 units 05/04/21 11:05 06/02/21 09:06 Insulin Glargine 100 Units/Ml SUB-Q 25 units DAILY TUTU Administration Insulin Glargine 10 units 05/06/21 22:00 06/02/21 21:39 Insulin Glargine 100 Units/Ml SUB-Q 10 units QHS [facility] Administration Insulin Human Lispro 0 unit 05/18/21 12:00 06/02/21 21:40 Insulin Lispro 100 Unit/Ml SUB-Q 2 unit ACHS [facility] Administration Protocol Lorazepam 1 mg 05/25/21 14:40 05/26/21 12:27 Lorazepam 2 Mg/Ml Vial IV 1 mg Q6H PRN Administration Agitation Methylprednisolone Sodium Succinate 40 mg 05/31/21 11:32 06/03/21 05:23 Methylprednisolone Sod Succinate 125 Mg/2 Ml Inj IV 40 mg Q8HR [facility] Administration Multi-Ingred Cream/Lotion/Oil/Oint 1 applic 05/10/21 14:00 06/02/21 21:40 Mineral Oil/Petrolatum, White Ophth Oint 3.5 Gm OU Not Given Q8HR [facility] Ondansetron HCl 4 mg 04/16/21 14:00 05/30/21 10:07 Ondansetron 4 Mg/2 Ml Inj IV 4 mg Q8H PRN Administration Nausea And Vomiting Senna 17.2 mg 05/02/21 22:00 06/02/21 21:37 Sennosides 8.6 Mg Tab PO 17.2 mg QHS TUTU Administration Sodium Chloride 10 ml 04/16/21 22:00 06/02/21 21:39 Sodium Chloride 0.9% 10 Ml Flush Syringe IV 10 ml BID TUTU Administration Sodium Chloride 10 ml 04/16/21 13:39 05/22/21 15:21 Sodium Chloride 0.9% 10 Ml Flush Syringe IV 10 ml PRN PRN Administration LINE FLUSH Zinc Sulfate 220 mg 04/16/21 22:00 06/02/21 21:37 Zinc Sulfate 220 Mg Cap PO 220 mg BID TUTU Administration Zolpidem Tartrate 10 mg 05/26/21 08:56 05/28/21 22:56 Zolpidem 5 Mg Tab PO 10 mg QHS PRN Administration Insomnia Nutrition/Malnutrition Assess - Dietary Evaluation Nutrition/Malnutrition Findings: Nutrition Notes Start: 04/23/21 07:41 Freq: Status: Active Protocol: Document 05/28/21 11:56 (Rec: 05/28/21 11:58 [id number]) Nutrition Notes Initial or Follow up Reassessment Current Diagnosis Respiratory Failure Other Pertinent Diagnosis oral thrush, COVID-19 pneu Current Diet GI soft Labs/Tests POC BG 115-318 Pertinent Medications Solu Medrol Miralax Height 4 ft 11.84 in Weight 63.4 kg [place] Body Weight (kg) 45.09 BMI 27.4 Weight Status Overweight Subjective/Other Information Pt continues to eat 75-100% of meals. Percent of energy/protein needs met: 100%/93% Burn Absent Trauma Absent Current % PO Good (75-100%) Minimum of two criteria Yes Energy Intake (severe) < or equal to 50% Estimated Energy Requirement > or equal to 5 days Interpretation of Weight Loss (severe) >5% in 1 month #2 Nutrition Diagnosis Malnutrition Diagnosis Progress(for reassessment Continues documentation) #1 Nutrition Diagnosis Inadequate oral intake As Evidenced by Signs and Symptoms pt continues to meet 100%/93% of kcal/protein needs Diagnosis Progress(for reassessment Resolved documentation) Is patient on ventilator? No Is Patient Ambulatory and/or Out of Bed No REE-([facility]-confined to bed) 1417.464 Kcal/Kg value to use for calculation 25 Approximate Energy Requirements Using 1585 kcal/Kg Calculation Used for Recommendations [facility] Additional Notes Pro needs 1.2-2g/k-137g/ day Fluid needs 1ml/kcal Nutrition Intervention Change Diet Order: contiue Add Supplement/Snack (indicate name/kcal Glucerna BID /protein ) Provides kCal: 440 Provides Protein (gm) 20 Goal #1 Meet at least 75% of protein and energy needs Anticipated Discharge Needs: Consistent CHO Follow-Up By: 06/04/21 Additional Comments F/u: stable intakes
[2021-06-03] MEDS: INSULIN LISPRO 100 UNIT/ML SUB-Q SCH ×4 (10:00→23:02)
[2021-06-03] MEDS: FAMOTIDINE 20 MG TAB PO SCH ×2 (12:11→21:53)
[2021-06-03] MEDS: ASCORBIC ACID 500 MG TAB PO SCH (12:12)
[2021-06-03] MEDS: ZINC SULFATE 220 MG CAP PO SCH ×2 (12:12→21:53)
[2021-06-03] MEDS: CHOLECALCIFEROL (VIT D3) 1000 UNIT (25 mcg) TAB PO SCH (12:12)
[2021-06-03] MEDS: INSULIN GLARGINE 100 UNITS/ML SUB-Q SCH ×2 (12:21→23:01)
[2021-06-03] MEDS: DOCUSATE SODIUM 100 MG CAP PO SCH ×2 (15:05→21:53)
[2021-06-03] MEDS: MINERAL OIL/PETROLATUM, WHITE OPHTH OINT 3.5 GM OU SCH (15:07)
[2021-06-03] MEDS: LORazepam 2 MG/ML VIAL IV PRN (15:32)
[2021-06-03] MEDS: ENOXAPARIN 40 MG/0.4 ML INJ SUB-Q SCH (21:53)
[2021-06-03] MEDS: ZOLPIDEM 5 MG TAB PO PRN (21:56)
[2021-06-03] MEDS: SENNOSIDES 8.6 MG TAB PO SCH (22:01)
[2021-06-04] MEDS: MINERAL OIL/PETROLATUM, WHITE OPHTH OINT 3.5 GM OU SCH ×3 (06:23→13:22)
[2021-06-04] MEDS: methylPREDNISolone Sod Succinate 125 MG/2 ML INJ IV SCH ×3 (06:24→21:11)
[2021-06-04] MEDS: INSULIN LISPRO 100 UNIT/ML SUB-Q SCH ×4 (08:48→21:31)
[2021-06-04] MEDS: FAMOTIDINE 20 MG TAB PO SCH ×2 (09:16→21:12)
[2021-06-04] MEDS: ASCORBIC ACID 500 MG TAB PO SCH (09:16)
[2021-06-04] MEDS: ZINC SULFATE 220 MG CAP PO SCH ×2 (09:16→21:12)
[2021-06-04] MEDS: CHOLECALCIFEROL (VIT D3) 1000 UNIT (25 mcg) TAB PO SCH (09:16)
[2021-06-04] MEDS: DOCUSATE SODIUM 100 MG CAP PO SCH ×2 (09:16→22:45)
[2021-06-04] MEDS: INSULIN GLARGINE 100 UNITS/ML SUB-Q SCH ×2 (09:16→21:31)
--- NOTE | 2021-06-04 10:37 | Progress Note ---
Assessment and Plan 50 y/o female with acute respiratory failure secondary to COVID19 pneumonia. 06/04/21: Clinically no change. Will drop steroids down the end of this week. 05/31/21: Clinically no change. Not eligible for LTACH. Encourage Proning. Wi ll drop steroids down to 40 q8 05/29/21: No acute changes clinically. Still on HFNC but not really able to wean. Continue to encourage proning. Will drop steroids further on Thursday. 05/27/21: No improvement over the weekend but also no worsening. No other strategies to offer. Please continue to encourage patient to prone. I dropped steroids on yesterday. Will wean more later in the week. 05/24/21: No new recs again for today. Will see as needed over the weekend but follow chart peripherally for changes. 05/22/21: No new recs for today. Prognosis remains guarded. 05/21/21: Wean as tolerated. Prone if able. Guarded prognosis 05/20/21: COntinue current level of care. 05/17/21: Prone if possible. Wean FiO2 for sats >88%. Continue scheduled ativan. Prognosis is very very guarded. Unfunded so not a candidate for LTACH 05/16/21: Prone if willing. Wean FIO2 if patient will allow. Anxiety control. Prognosis still remains very guarded. 05/15/21: Not sure if MAR is accurate but may have only gotten one dose of scheduled anixolytic therapy. Continue proning as tolerated, and wean FiO2 and flow for sats >88%. Prognosi remains very very guarded to poor. 05/14/21: Will discontinue the buspar and make the ativan scheduled but will do q6 as oppose to q4 and attempt to leave parameters for nursing when not to give. If anxiety could be controlled, feel that patient could be weaned further. She has no funding so she is not a candidate for LTACH. Prone if possible. Guarded prognosis. This is her day. 05/13/21: Ordered buspar 10 BID to start with to help with anxiety. Please continue to wean FiO2 as tolerated. Will remind nurse that there is PRN ativan available. Continue higher doses of steroids. Prone if able. 05/12/21: Patient may need something longer acting for anxiety. Per chart has not gotten any ativan in days. Would be ok with either buspar or low dose klonopin bid. COntinue higher doses of steroids as patient seems to be responding. Prone if possible. 05/11/21: Continue high doses of steroids and continue to wean for sats >88%. Please encourage proning. 05/10/21: Will continue this dose of steroid at least through the weekend and assess for improvement. will speak with RT about aggressive weaning. Full dose anticoagulation continues. Very very guarded to poor prognosis. 05/09/21: Going to consider increasing steroids to 125q8, maybe as early as tomorrow. continue full dose anticoagulation. 05/08/21: Continue anticoagulation and steroids. Prone if possible. Anxiety control. No objection to CTA if this can happen. Very very guarded prognosis. 05/07/21: Spoke with IMS, not opposed to full dose anticoagulation. If patient goes back on NRB HFNC combo may need to consider restarting PPN again. Encourage proning. Guarded prognosis. 05/06/21: Continue to wean FiO2 and flow for sats >88%. Tolerating diet now so will stop PPN. Continue anxiety control. Continue IV steroids. [facility] Not sure why she was titrated back up to 100% from 85 as all sats documented in the RT's notes were acceptable. Same for under vital signs as well. 05/03/21: Set back last night from yesterday. Continue bipap therapy for now and attempt HFNC maybe later this afternoon. Continue to use PRN ativan but may need to schedule as she likely took off mask from anxiety. Continue IV steroids. Hold on transfer to COVID Floor. 05/02/21: Continue to wean FiO2 as tolerated for sats >88%. Will continue bipap at night. Patient has no funding so not a candidate for LTACH. Given that she has been stable and not requiring the combo of HFNC and NRB, will consider moving to COVID floor. 05/01/21: Continue to wean FiO2 for sats >88%. A sat of 90 is more than accept able and oxygen should not be increased for this unless patient desats and remains at a sat lower than 88. Bipap at night to give some form of relief and HFNC during the day. Currently on just this alone which is improvement. Ok with daily diuresis but must monitor renal function and BP closely. She was over diuresed last week and we ended up giving fluid back. Prognosis remains guarded. 04/30/21: Will start CLinimix today for nutritional support, without electrolytes. Check labs in am. Prone if able. Continue precedx for anxiety. Very very guarded prognosis. Attempting our best to not intubate. 04/29/21: Continue precedex. Continue IV solumedrol. Prone if able. Guarded prognosis. 04/28/21: Continue Precedex. Picc team attempting to place line now. Stable on Bipap. Ordered steroids IV solumedrol to start today. Prognosis remains guarded, still at very high risk for intubation. 04/27/21: Hypotension improving/improved. Hold on any further lasix dosing. Continue precedex to help with anxeity. later today please attempt HFNC with NRB if needed. Attempt to feed if possible. Steroids end today, please order solumedrol 40q8 to start tomorrow (04/28/21). guarded prognosis. 04/26/21: Hypotension today, most likely from precedex use and diuresis that I did the last several days. Will bolus again today. Consider midodrine if BP does not respond. 04/25/21: Lasix again today. Keep PRN ativan for now. Hold on precedex for now. Guarded prognosis. Labs ordered for tomorrow. 04/24/21: Lasix today. Will also start patient on low dose PRN ativan. If this does not help will then try precedex. Guarded prognosis. 04/23/21: Prone as tolerated. No lasix today. Continue decadron. Guarded prognosis. High risk for intubation and high mortality with intubation. 04/19/21: Prone as tolerated during the day and sleep prone at night. Continue IV remdesivir and steroids. Did get actemra. Guarded prognosis. 1. Daily net negative state 2. Prone if possible 3. IV remdesivir. 4. Should be a candidate for Actemra 5. IV steroids 6. Guarded Prognosis Subjective Date of service: 06/04/21 Principal diagnosis: Covid-19 Interval history: No acute events. Still on HFNC. Objective Vital Signs - 12hr 06/04/21 02:00 O2 Sat by Pulse 98 Oximetry Constitutional: no acute distress, alert Eyes: non-icteric ENT: oropharynx moist Neck: supple Effort: normal Ascultation: Bilateral: diminished breath sounds Cardiovascular: regular rate and rhythm Gastrointestinal: normoactive bowel sounds, soft, non-tender, non-distended Integumentary: normal Extremities: no cyanosis, no edema, pink and warm Neurologic: normal mental status, non-focal exam, pupils equal and round, CN II- XII normal Psychiatric: mood appropriate, affect normal CBC and BMP: 06/02/21 05:34 06/02/21 05:34 ABG, PT/INR, D-dimer: ABG ABG pH 7.403 pH Units (7.350-7.450) 05/14/21 02:23 POC ABG pCO2 45.4 mmHg (32.0-48.0) 05/03/21 04:49 ABG pCO2 50.2 mm Hg 05/14/21 02:23 POC ABG pO2 65.3 mmHg (83-108) L 05/03/21 04:49 ABG pO2 130.3 mm Hg (80.0-90.0) H 05/14/21 02:23 POC ABG HCO3 18.5 05/03/21 04:49 ABG O2 Saturation 98.5 % (95.0-99.0) 05/14/21 02:23 PT/INR, D-dimer D-Dimer 910.38 ng/mlDDU (0-234) H 05/23/21 09:50 Abnormal lab findings: Abnormal Labs 04/16/21 04/16/21 04/16/21 11:42 11:42 11:42 WBC MCHC RDW 16.1 H Lymph % (Auto) 7.8 L Lymph # (Auto) 0.8 L Baso # (Auto) Seg Neutrophils % 87.7 H Seg Neuts % (Manual) Lymphocytes % (Manual) Seg Neutrophils # 8.5 H Seg Neutrophils # Man Lymphocytes # (Manual) D-Dimer 338.70 H ABG pH POC ABG pO2 ABG pO2 ABG HCO3 ABG O2 Saturation ABG Base Excess ABG Oxyhemoglobin ABG Sodium ABG Chloride ABG Glucose Oxyhemoglobin Carboxyhemoglobin Sodium Potassium Chloride Carbon Dioxide BUN Creatinine Glucose 194 H POC Glucose Hemoglobin A1c Ferritin AST ALT Alkaline Phosphatase Lactate Dehydrogenase C-Reactive Protein Total Protein 8.4 H Albumin 3.8 L Arterial Blood Glucose Coronavirus (PCR) 04/16/21 04/16/21 04/17/21 11:42 11:42 03:50 WBC MCHC RDW 16.0 H Lymph % (Auto) 7.7 L Lymph # (Auto) 0.6 L Baso # (Auto) Seg Neutrophils % 89.8 H Seg Neuts % (Manual) Lymphocytes % (Manual) Seg Neutrophils # Seg Neutrophils # Man Lymphocytes # (Manual) D-Dimer ABG pH POC ABG pO2 ABG pO2 ABG HCO3 ABG O2 Saturation ABG Base Excess ABG Oxyhemoglobin ABG Sodium ABG Chloride ABG Glucose Oxyhemoglobin Carboxyhemoglobin Sodium Potassium Chloride Carbon Dioxide BUN Creatinine Glucose 195 H POC Glucose Hemoglobin A1c Ferritin 254.3 H AST ALT Alkaline Phosphatase Lactate Dehydrogenase 359 H C-Reactive Protein 15.20 H Total Protein Albumin Arterial Blood Glucose Coronavirus (PCR) 04/17/21 04/17/21 04/17/21 03:50 08:26 08:26 WBC MCHC RDW Lymph % (Auto) Lymph # (Auto) Baso # (Auto) Seg Neutrophils % Seg Neuts % (Manual) Lymphocytes % (Manual) Seg Neutrophils # Seg Neutrophils # Man Lymphocytes # (Manual) D-Dimer 262.48 H ABG pH POC ABG pO2 ABG pO2 ABG HCO3 ABG O2 Saturation ABG Base Excess ABG Oxyhemoglobin ABG Sodium ABG Chloride ABG Glucose Oxyhemoglobin Carboxyhemoglobin Sodium Potassium Chloride Carbon Dioxide BUN 20 H Creatinine 0.5 L Glucose 249 H 225 H POC Glucose Hemoglobin A1c Ferritin AST ALT Alkaline Phosphatase Lactate Dehydrogenase 338 H C-Reactive Protein 17.20 H Total Protein Albumin 3.2 L Arterial Blood Glucose Coronavirus (PCR) 04/17/21 04/17/21 04/17/21 08:26 15:04 Unknown WBC MCHC RDW Lymph % (Auto) Lymph # (Auto) Baso # (Auto) Seg Neutrophils % Seg Neuts % (Manual) Lymphocytes % (Manual) Seg Neutrophils # Seg Neutrophils # Man Lymphocytes # (Manual) D-Dimer ABG pH POC ABG pO2 ABG pO2 ABG HCO3 ABG O2 Saturation ABG Base Excess ABG Oxyhemoglobin ABG Sodium ABG Chloride ABG Glucose Oxyhemoglobin Carboxyhemoglobin Sodium Potassium Chloride Carbon Dioxide BUN 20 H Creatinine 0.5 L Glucose 246 H POC Glucose Hemoglobin A1c Ferritin 392.0 H AST ALT Alkaline Phosphatase Lactate Dehydrogenase C-Reactive Protein Total Protein 8.3 H Albumin 3.1 L Arterial Blood Glucose Coronavirus (PCR) Positive A 04/18/21 04/18/21 04/18/21 05:06 05:06 07:36 WBC 11.6 H MCHC RDW 16.1 H Lymph % (Auto) Lymph # (Auto) Baso # (Auto) Seg Neutrophils % Seg Neuts % (Manual) Lymphocytes % (Manual) Seg Neutrophils # Seg Neutrophils # Man Lymphocytes # (Manual) D-Dimer ABG pH POC ABG pO2 ABG pO2 ABG HCO3 ABG O2 Saturation ABG Base Excess ABG Oxyhemoglobin ABG Sodium ABG Chloride ABG Glucose Oxyhemoglobin Carboxyhemoglobin Sodium Potassium 5.2 H Chloride Carbon Dioxide BUN 22 H Creatinine 0.5 L Glucose 315 H POC Glucose Hemoglobin A1c 8.5 H Ferritin AST ALT Alkaline Phosphatase Lactate Dehydrogenase C-Reactive Protein Total Protein Albumin 3.3 L Arterial Blood Glucose Coronavirus (PCR) 04/18/21 04/18/21 04/18/21 11:59 16:43 23:24 WBC MCHC RDW Lymph % (Auto) Lymph # (Auto) Baso # (Auto) Seg Neutrophils % Seg Neuts % (Manual) Lymphocytes % (Manual) Seg Neutrophils # Seg Neutrophils # Man Lymphocytes # (Manual) D-Dimer ABG pH POC ABG pO2 ABG pO2 ABG HCO3 ABG O2 Saturation ABG Base Excess ABG Oxyhemoglobin ABG Sodium ABG Chloride ABG Glucose Oxyhemoglobin Carboxyhemoglobin Sodium Potassium Chloride Carbon Dioxide BUN Creatinine Glucose POC Glucose 284 H 273 H 290 H Hemoglobin A1c Ferritin AST ALT Alkaline Phosphatase Lactate Dehydrogenase C-Reactive Protein Total Protein Albumin Arterial Blood Glucose Coronavirus (PCR) 04/19/21 04/19/21 04/19/21 04:19 04:19 08:10 WBC MCHC RDW 15.7 H Lymph % (Auto) Lymph # (Auto) Baso # (Auto) Seg Neutrophils % Seg Neuts % (Manual) Lymphocytes % (Manual) Seg Neutrophils # Seg Neutrophils # Man Lymphocytes # (Manual) D-Dimer ABG pH POC ABG pO2 ABG pO2 ABG HCO3 ABG O2 Saturation ABG Base Excess ABG Oxyhemoglobin ABG Sodium ABG Chloride ABG Glucose Oxyhemoglobin Carboxyhemoglobin Sodium Potassium Chloride Carbon Dioxide BUN 27 H Creatinine 0.4 L Glucose 184 H POC Glucose 194 H Hemoglobin A1c Ferritin AST ALT Alkaline Phosphatase Lactate Dehydrogenase C-Reactive Protein Total Protein Albumin 3.1 L Arterial Blood Glucose Coronavirus (PCR) 04/19/21 04/19/21 04/19/21 11:38 16:25 22:04 WBC MCHC RDW Lymph % (Auto) Lymph # (Auto) Baso # (Auto) Seg Neutrophils % Seg Neuts % (Manual) Lymphocytes % (Manual) Seg Neutrophils # Seg Neutrophils # Man Lymphocytes # (Manual) D-Dimer ABG pH POC ABG pO2 ABG pO2 ABG HCO3 ABG O2 Saturation ABG Base Excess ABG Oxyhemoglobin ABG Sodium ABG Chloride ABG Glucose Oxyhemoglobin Carboxyhemoglobin Sodium Potassium Chloride Carbon Dioxide BUN Creatinine Glucose POC Glucose 224 H 297 H 251 H Hemoglobin A1c Ferritin AST ALT Alkaline Phosphatase Lactate Dehydrogenase C-Reactive Protein Total Protein Albumin Arterial Blood Glucose Coronavirus (PCR) 04/20/21 04/20/21 04/20/21 05:28 08:43 16:21 WBC MCHC RDW Lymph % (Auto) Lymph # (Auto) Baso # (Auto) Seg Neutrophils % Seg Neuts % (Manual) Lymphocytes % (Manual) Seg Neutrophils # Seg Neutrophils # Man Lymphocytes # (Manual) D-Dimer ABG pH POC ABG pO2 ABG pO2 ABG HCO3 ABG O2 Saturation ABG Base Excess ABG Oxyhemoglobin ABG Sodium ABG Chloride ABG Glucose Oxyhemoglobin Carboxyhemoglobin Sodium Potassium Chloride Carbon Dioxide BUN 27 H Creatinine Glucose 192 H POC Glucose 173 H 253 H Hemoglobin A1c Ferritin AST ALT Alkaline Phosphatase Lactate Dehydrogenase C-Reactive Protein Total Protein Albumin 3.0 L Arterial Blood Glucose Coronavirus (PCR) 04/21/21 04/21/21 04/21/21 07:58 12:05 16:08 WBC MCHC RDW Lymph % (Auto) Lymph # (Auto) Baso # (Auto) Seg Neutrophils % Seg Neuts % (Manual) Lymphocytes % (Manual) Seg Neutrophils # Seg Neutrophils # Man Lymphocytes # (Manual) D-Dimer ABG pH POC ABG pO2 ABG pO2 ABG HCO3 ABG O2 Saturation ABG Base Excess ABG Oxyhemoglobin ABG Sodium ABG Chloride ABG Glucose Oxyhemoglobin Carboxyhemoglobin Sodium Potassium Chloride Carbon Dioxide BUN Creatinine Glucose POC Glucose 140 H 252 H 214 H Hemoglobin A1c Ferritin AST ALT Alkaline Phosphatase Lactate Dehydrogenase C-Reactive Protein Total Protein Albumin Arterial Blood Glucose Coronavirus (PCR) 04/21/21 04/22/21 04/22/21 21:42 08:37 12:01 WBC MCHC RDW Lymph % (Auto) Lymph # (Auto) Baso # (Auto) Seg Neutrophils % Seg Neuts % (Manual) Lymphocytes % (Manual) Seg Neutrophils # Seg Neutrophils # Man Lymphocytes # (Manual) D-Dimer ABG pH 7.457 H POC ABG pO2 49.4 L ABG pO2 ABG HCO3 ABG O2 Saturation ABG Base Excess ABG Oxyhemoglobin 85.6 L ABG Sodium ABG Chloride ABG Glucose 121 H Oxyhemoglobin Carboxyhemoglobin 0.3 L Sodium Potassium Chloride Carbon Dioxide BUN Creatinine Glucose POC Glucose 162 H 227 H Hemoglobin A1c Ferritin AST ALT Alkaline Phosphatase Lactate Dehydrogenase C-Reactive Protein Total Protein Albumin Arterial Blood Glucose 121 H Coronavirus (PCR) 04/22/21 04/22/21 04/23/21 16:26 22:23 04:52 WBC MCHC RDW 15.7 H Lymph % (Auto) Lymph # (Auto) Baso # (Auto) Seg Neutrophils % Seg Neuts % (Manual) Lymphocytes % (Manual) Seg Neutrophils # Seg Neutrophils # Man Lymphocytes # (Manual) D-Dimer ABG pH POC ABG pO2 ABG pO2 ABG HCO3 ABG O2 Saturation ABG Base Excess ABG Oxyhemoglobin ABG Sodium ABG Chloride ABG Glucose Oxyhemoglobin Carboxyhemoglobin Sodium Potassium Chloride Carbon Dioxide BUN Creatinine Glucose POC Glucose 200 H 136 H Hemoglobin A1c Ferritin AST ALT Alkaline Phosphatase Lactate Dehydrogenase C-Reactive Protein Total Protein Albumin Arterial Blood Glucose Coronavirus (PCR) 04/23/21 04/23/21 04/23/21 04:52 12:06 17:41 WBC MCHC RDW Lymph % (Auto) Lymph # (Auto) Baso # (Auto) Seg Neutrophils % Seg Neuts % (Manual) Lymphocytes % (Manual) Seg Neutrophils # Seg Neutrophils # Man Lymphocytes # (Manual) D-Dimer ABG pH POC ABG pO2 ABG pO2 ABG HCO3 ABG O2 Saturation ABG Base Excess ABG Oxyhemoglobin ABG Sodium ABG Chloride ABG Glucose Oxyhemoglobin Carboxyhemoglobin Sodium 136 L Potassium Chloride 97.7 L Carbon Dioxide BUN 23 H Creatinine Glucose 101 H POC Glucose 202 H 169 H Hemoglobin A1c Ferritin AST 46 H ALT Alkaline Phosphatase Lactate Dehydrogenase C-Reactive Protein Total Protein Albumin 3.3 L Arterial Blood Glucose Coronavirus (PCR) 04/23/21 04/24/21 04/24/21 23:08 05:17 08:38 WBC MCHC RDW Lymph % (Auto) Lymph # (Auto) Baso # (Auto) Seg Neutrophils % Seg Neuts % (Manual) Lymphocytes % (Manual) Seg Neutrophils # Seg Neutrophils # Man Lymphocytes # (Manual) D-Dimer ABG pH POC ABG pO2 ABG pO2 ABG HCO3 ABG O2 Saturation ABG Base Excess ABG Oxyhemoglobin ABG Sodium ABG Chloride ABG Glucose Oxyhemoglobin Carboxyhemoglobin Sodium Potassium Chloride Carbon Dioxide BUN Creatinine Glucose POC Glucose 111 H 108 H 126 H Hemoglobin A1c Ferritin AST ALT Alkaline Phosphatase Lactate Dehydrogenase C-Reactive Protein Total Protein Albumin Arterial Blood Glucose Coronavirus (PCR) 04/24/21 04/24/21 04/24/21 11:54 17:57 21:23 WBC MCHC RDW Lymph % (Auto) Lymph # (Auto) Baso # (Auto) Seg Neutrophils % Seg Neuts % (Manual) Lymphocytes % (Manual) Seg Neutrophils # Seg Neutrophils # Man Lymphocytes # (Manual) D-Dimer ABG pH POC ABG pO2 ABG pO2 ABG HCO3 ABG O2 Saturation ABG Base Excess ABG Oxyhemoglobin ABG Sodium ABG Chloride ABG Glucose Oxyhemoglobin Carboxyhemoglobin Sodium Potassium Chloride Carbon Dioxide BUN Creatinine Glucose POC Glucose 147 H 177 H 138 H Hemoglobin A1c Ferritin AST ALT Alkaline Phosphatase Lactate Dehydrogenase C-Reactive Protein Total Protein Albumin Arterial Blood Glucose Coronavirus (PCR) 04/25/21 04/25/21 04/25/21 07:06 11:23 15:43 WBC MCHC RDW Lymph % (Auto) Lymph # (Auto) Baso # (Auto) Seg Neutrophils % Seg Neuts % (Manual) Lymphocytes % (Manual) Seg Neutrophils # Seg Neutrophils # Man Lymphocytes # (Manual) D-Dimer ABG pH POC ABG pO2 ABG pO2 ABG HCO3 ABG O2 Saturation ABG Base Excess ABG Oxyhemoglobin ABG Sodium ABG Chloride ABG Glucose Oxyhemoglobin Carboxyhemoglobin Sodium Potassium Chloride Carbon Dioxide BUN Creatinine Glucose POC Glucose 147 H 169 H 227 H Hemoglobin A1c Ferritin AST ALT Alkaline Phosphatase Lactate Dehydrogenase C-Reactive Protein Total Protein Albumin Arterial Blood Glucose Coronavirus (PCR) 04/25/21 04/26/21 04/26/21 21:22 02:45 05:15 WBC MCHC RDW Lymph % (Auto) Lymph # (Auto) Baso # (Auto) Seg Neutrophils % Seg Neuts % (Manual) Lymphocytes % (Manual) Seg Neutrophils # Seg Neutrophils # Man Lymphocytes # (Manual) D-Dimer ABG pH POC ABG pO2 70.7 L ABG pO2 ABG HCO3 ABG O2 Saturation ABG Base Excess ABG Oxyhemoglobin 93.0 L ABG Sodium 132.7 L ABG Chloride ABG Glucose 115 H Oxyhemoglobin Carboxyhemoglobin Sodium Potassium Chloride 95.8 L Carbon Dioxide 32 H BUN 20 H Creatinine Glucose 102 H POC Glucose 196 H Hemoglobin A1c Ferritin AST ALT Alkaline Phosphatase Lactate Dehydrogenase C-Reactive Protein Total Protein Albumin Arterial Blood Glucose 115 H Coronavirus (PCR) 04/26/21 04/26/21 04/26/21 11:49 16:09 21:07 WBC MCHC RDW Lymph % (Auto) Lymph # (Auto) Baso # (Auto) Seg Neutrophils % Seg Neuts % (Manual) Lymphocytes % (Manual) Seg Neutrophils # Seg Neutrophils # Man Lymphocytes # (Manual) D-Dimer ABG pH POC ABG pO2 ABG pO2 ABG HCO3 ABG O2 Saturation ABG Base Excess ABG Oxyhemoglobin ABG Sodium ABG Chloride ABG Glucose Oxyhemoglobin Carboxyhemoglobin Sodium Potassium Chloride Carbon Dioxide BUN Creatinine Glucose POC Glucose 114 H 188 H 136 H Hemoglobin A1c Ferritin AST ALT Alkaline Phosphatase Lactate Dehydrogenase C-Reactive Protein Total Protein Albumin Arterial Blood Glucose Coronavirus (PCR) 04/27/21 04/27/21 04/28/21 17:34 22:12 08:26 WBC MCHC RDW Lymph % (Auto) Lymph # (Auto) Baso # (Auto) Seg Neutrophils % Seg Neuts % (Manual) Lymphocytes % (Manual) Seg Neutrophils # Seg Neutrophils # Man Lymphocytes # (Manual) D-Dimer ABG pH POC ABG pO2 ABG pO2 ABG HCO3 ABG O2 Saturation ABG Base Excess ABG Oxyhemoglobin ABG Sodium ABG Chloride ABG Glucose Oxyhemoglobin Carboxyhemoglobin Sodium Potassium Chloride Carbon Dioxide BUN Creatinine Glucose POC Glucose 128 H 159 H 69 L Hemoglobin A1c Ferritin AST ALT Alkaline Phosphatase Lactate Dehydrogenase C-Reactive Protein Total Protein Albumin Arterial Blood Glucose Coronavirus (PCR) 04/28/21 04/28/21 04/29/21 12:22 21:11 06:05 WBC MCHC RDW Lymph % (Auto) Lymph # (Auto) Baso # (Auto) Seg Neutrophils % Seg Neuts % (Manual) Lymphocytes % (Manual) Seg Neutrophils # Seg Neutrophils # Man Lymphocytes # (Manual) D-Dimer ABG pH POC ABG pO2 ABG pO2 ABG HCO3 ABG O2 Saturation ABG Base Excess ABG Oxyhemoglobin ABG Sodium ABG Chloride ABG Glucose Oxyhemoglobin Carboxyhemoglobin Sodium 132 L Potassium Chloride 94.4 L Carbon Dioxide BUN Creatinine 0.2 L D Glucose 140 H POC Glucose 141 H 171 H Hemoglobin A1c Ferritin AST ALT Alkaline Phosphatase Lactate Dehydrogenase C-Reactive Protein Total Protein Albumin Arterial Blood Glucose Coronavirus (PCR) 04/29/21 04/29/21 04/29/21 06:05 07:24 11:36 WBC MCHC 35 H RDW 15.9 H Lymph % (Auto) Lymph # (Auto) Baso # (Auto) Seg Neutrophils % Seg Neuts % (Manual) Lymphocytes % (Manual) Seg Neutrophils # Seg Neutrophils # Man Lymphocytes # (Manual) D-Dimer ABG pH POC ABG pO2 ABG pO2 ABG HCO3 ABG O2 Saturation ABG Base Excess ABG Oxyhemoglobin ABG Sodium ABG Chloride ABG Glucose Oxyhemoglobin Carboxyhemoglobin Sodium Potassium Chloride Carbon Dioxide BUN Creatinine Glucose POC Glucose 141 H 220 H Hemoglobin A1c Ferritin AST ALT Alkaline Phosphatase Lactate Dehydrogenase C-Reactive Protein Total Protein Albumin Arterial Blood Glucose Coronavirus (PCR) 04/29/21 04/29/21 04/29/21 14:23 15:30 17:06 WBC MCHC RDW Lymph % (Auto) Lymph # (Auto) Baso # (Auto) Seg Neutrophils % Seg Neuts % (Manual) Lymphocytes % (Manual) Seg Neutrophils # Seg Neutrophils # Man Lymphocytes # (Manual) D-Dimer ABG pH POC ABG pO2 ABG pO2 52.6 L ABG HCO3 ABG O2 Saturation 86.4 L ABG Base Excess ABG Oxyhemoglobin ABG Sodium ABG Chloride ABG Glucose Oxyhemoglobin 84.6 L Carboxyhemoglobin Sodium Potassium Chloride Carbon Dioxide BUN Creatinine Glucose POC Glucose 173 H 158 H Hemoglobin A1c Ferritin AST ALT Alkaline Phosphatase Lactate Dehydrogenase C-Reactive Protein Total Protein Albumin Arterial Blood Glucose Coronavirus (PCR) 04/29/21 04/30/21 04/30/21 21:27 07:16 08:00 WBC MCHC RDW 16.1 H Lymph % (Auto) Lymph # (Auto) Baso # (Auto) Seg Neutrophils % Seg Neuts % (Manual) Lymphocytes % (Manual) Seg Neutrophils # Seg Neutrophils # Man Lymphocytes # (Manual) D-Dimer ABG pH POC ABG pO2 ABG pO2 ABG HCO3 ABG O2 Saturation ABG Base Excess ABG Oxyhemoglobin ABG Sodium ABG Chloride ABG Glucose Oxyhemoglobin Carboxyhemoglobin Sodium Potassium Chloride Carbon Dioxide BUN Creatinine Glucose POC Glucose 244 H 175 H Hemoglobin A1c Ferritin AST ALT Alkaline Phosphatase Lactate Dehydrogenase C-Reactive Protein Total Protein Albumin Arterial Blood Glucose Coronavirus (PCR) 04/30/21 04/30/21 04/30/21 08:00 08:00 11:03 WBC MCHC RDW Lymph % (Auto) Lymph # (Auto) Baso # (Auto) Seg Neutrophils % Seg Neuts % (Manual) Lymphocytes % (Manual) Seg Neutrophils # Seg Neutrophils # Man Lymphocytes # (Manual) D-Dimer 1796.87 H ABG pH POC ABG pO2 ABG pO2 ABG HCO3 ABG O2 Saturation ABG Base Excess ABG Oxyhemoglobin ABG Sodium ABG Chloride ABG Glucose Oxyhemoglobin Carboxyhemoglobin Sodium 135 L Potassium Chloride 96.3 L Carbon Dioxide BUN Creatinine 0.2 L Glucose 153 H POC Glucose 183 H Hemoglobin A1c Ferritin AST 41 H ALT 76 H Alkaline Phosphatase 160 H Lactate Dehydrogenase 522 H C-Reactive Protein Total Protein 6.1 L Albumin 3.1 L Arterial Blood Glucose Coronavirus (PCR) 04/30/21 04/30/21 05/01/21 17:04 22:17 05:39 WBC MCHC RDW Lymph % (Auto) Lymph # (Auto) Baso # (Auto) Seg Neutrophils % Seg Neuts % (Manual) Lymphocytes % (Manual) Seg Neutrophils # Seg Neutrophils # Man Lymphocytes # (Manual) D-Dimer ABG pH POC ABG pO2 ABG pO2 ABG HCO3 ABG O2 Saturation ABG Base Excess ABG Oxyhemoglobin ABG Sodium ABG Chloride ABG Glucose Oxyhemoglobin Carboxyhemoglobin Sodium 133 L Potassium Chloride 92.1 L Carbon Dioxide BUN 24 H Creatinine 0.4 L D Glucose 269 H POC Glucose 167 H 208 H Hemoglobin A1c Ferritin AST ALT 66 H Alkaline Phosphatase 142 H Lactate Dehydrogenase C-Reactive Protein Total Protein Albumin 3.2 L Arterial Blood Glucose Coronavirus (PCR) 0805/01/21 05/01/21 05:39 05:39 07:45 WBC MCHC RDW 16.0 H Lymph % (Auto) Lymph # (Auto) Baso # (Auto) Seg Neutrophils % Seg Neuts % (Manual) Lymphocytes % (Manual) Seg Neutrophils # Seg Neutrophils # Man Lymphocytes # (Manual) D-Dimer 3984.95 H ABG pH POC ABG pO2 ABG pO2 ABG HCO3 ABG O2 Saturation ABG Base Excess ABG Oxyhemoglobin ABG Sodium ABG Chloride ABG Glucose Oxyhemoglobin Carboxyhemoglobin Sodium Potassium Chloride Carbon Dioxide BUN Creatinine Glucose POC Glucose 229 H Hemoglobin A1c Ferritin AST ALT Alkaline Phosphatase Lactate Dehydrogenase C-Reactive Protein Total Protein Albumin Arterial Blood Glucose Coronavirus (PCR) 05/01/21 05/01/21 05/01/21 12:10 15:46 21:06 WBC MCHC RDW Lymph % (Auto) Lymph # (Auto) Baso # (Auto) Seg Neutrophils % Seg Neuts % (Manual) Lymphocytes % (Manual) Seg Neutrophils # Seg Neutrophils # Man Lymphocytes # (Manual) D-Dimer ABG pH POC ABG pO2 ABG pO2 ABG HCO3 ABG O2 Saturation ABG Base Excess ABG Oxyhemoglobin ABG Sodium ABG Chloride ABG Glucose Oxyhemoglobin Carboxyhemoglobin Sodium Potassium Chloride Carbon Dioxide BUN Creatinine Glucose POC Glucose 296 H 279 H 232 H Hemoglobin A1c Ferritin AST ALT Alkaline Phosphatase Lactate Dehydrogenase C-Reactive Protein Total Protein Albumin Arterial Blood Glucose Coronavirus (PCR) 05/02/21 05/02/21 05/02/21 04:55 04:55 04:55 WBC MCHC RDW 16.1 H Lymph % (Auto) Lymph # (Auto) Baso # (Auto) Seg Neutrophils % Seg Neuts % (Manual) Lymphocytes % (Manual) Seg Neutrophils # Seg Neutrophils # Man Lymphocytes # (Manual) D-Dimer 1401.08 H ABG pH POC ABG pO2 ABG pO2 ABG HCO3 ABG O2 Saturation ABG Base Excess ABG Oxyhemoglobin ABG Sodium ABG Chloride ABG Glucose Oxyhemoglobin Carboxyhemoglobin Sodium 131 L Potassium Chloride 95.5 L Carbon Dioxide BUN 20 H Creatinine 0.3 L Glucose 288 H POC Glucose Hemoglobin A1c Ferritin AST ALT Alkaline Phosphatase Lactate Dehydrogenase C-Reactive Protein Total Protein 6.0 L Albumin 3.1 L Arterial Blood Glucose Coronavirus (PCR) 05/02/21 05/02/2105/02/21 07:53 11:45 15:25 WBC MCHC RDW Lymph % (Auto) Lymph # (Auto) Baso # (Auto) Seg Neutrophils % Seg Neuts % (Manual) Lymphocytes % (Manual) Seg Neutrophils # Seg Neutrophils # Man Lymphocytes # (Manual) D-Dimer ABG pH POC ABG pO2 ABG pO2 ABG HCO3 ABG O2 Saturation ABG Base Excess ABG Oxyhemoglobin ABG Sodium ABG Chloride ABG Glucose Oxyhemoglobin Carboxyhemoglobin Sodium Potassium Chloride Carbon Dioxide BUN Creatinine Glucose POC Glucose 180 H 228 H 275 H Hemoglobin A1c Ferritin AST ALT Alkaline Phosphatase Lactate Dehydrogenase C-Reactive Protein Total Protein Albumin Arterial Blood Glucose Coronavirus (PCR) 05/02/21 05/03/21 05/03/21 22:56 04:30 04:49 WBC MCHC RDW Lymph % (Auto) Lymph # (Auto) Baso # (Auto) Seg Neutrophils % Seg Neuts % (Manual) Lymphocytes % (Manual) Seg Neutrophils # Seg Neutrophils # Man Lymphocytes # (Manual) D-Dimer ABG pH 7.229 L POC ABG pO2 65.3 L ABG pO2 ABG HCO3 ABG O2 Saturation ABG Base Excess ABG Oxyhemoglobin 87.8 L ABG Sodium 133.0 L ABG Chloride 97.0 L ABG Glucose 403 H Oxyhemoglobin Carboxyhemoglobin Sodium 130 L Potassium Chloride 94.9 L Carbon Dioxide BUN 20 H Creatinine 0.5 L D Glucose 359 H POC Glucose 293 H Hemoglobin A1c Ferritin AST 54 H ALT 75 H Alkaline Phosphatase 138 H Lactate Dehydrogenase C-Reactive Protein Total Protein Albumin 3.6 L Arterial Blood Glucose 403 H Coronavirus (PCR) 05/03/21 05/03/21 05/03/21 05:27 11:26 17:57 WBC MCHC RDW Lymph % (Auto) Lymph # (Auto) Baso # (Auto) Seg Neutrophils % Seg Neuts % (Manual) Lymphocytes % (Manual) Seg Neutrophils # Seg Neutrophils # Man Lymphocytes # (Manual) D-Dimer ABG pH POC ABG pO2 ABG pO2 ABG HCO3 ABG O2 Saturation ABG Base Excess ABG Oxyhemoglobin ABG Sodium ABG Chloride ABG Glucose Oxyhemoglobin Carboxyhemoglobin Sodium Potassium Chloride Carbon Dioxide BUN Creatinine Glucose POC Glucose 361 H 297 H 226 H Hemoglobin A1c Ferritin AST ALT Alkaline Phosphatase Lactate Dehydrogenase C-Reactive Protein Total Protein Albumin Arterial Blood Glucose Coronavirus (PCR) 05/03/21 05/04/21 05/04/21 23:12 05:12 07:30 WBC MCHC RDW Lymph % (Auto) Lymph # (Auto) Baso # (Auto) Seg Neutrophils % Seg Neuts % (Manual) Lymphocytes % (Manual) Seg Neutrophils # Seg Neutrophils # Man Lymphocytes # (Manual) D-Dimer ABG pH POC ABG pO2 ABG pO2 ABG HCO3 ABG O2 Saturation ABG Base Excess ABG Oxyhemoglobin ABG Sodium ABG Chloride ABG Glucose Oxyhemoglobin Carboxyhemoglobin Sodium Potassium Chloride Carbon Dioxide BUN Creatinine Glucose POC Glucose 282 H 285 H 254 H Hemoglobin A1c Ferritin AST ALT Alkaline Phosphatase Lactate Dehydrogenase C-Reactive Protein Total Protein Albumin Arterial Blood Glucose Coronavirus (PCR) 05/04/21 05/04/21 05/04/21 08:58 11:45 16:07 WBC MCHC RDW Lymph % (Auto) Lymph # (Auto) Baso # (Auto) Seg Neutrophils % Seg Neuts % (Manual) Lymphocytes % (Manual) Seg Neutrophils # Seg Neutrophils # Man Lymphocytes # (Manual) D-Dimer ABG pH POC ABG pO2 ABG pO2 ABG HCO3 ABG O2 Saturation ABG Base Excess ABG Oxyhemoglobin ABG Sodium ABG Chloride ABG Glucose Oxyhemoglobin Carboxyhemoglobin Sodium 134 L Potassium Chloride Carbon Dioxide BUN 20 H Creatinine 0.3 L Glucose 267 H POC Glucose 244 H 297 H Hemoglobin A1c Ferritin AST ALT Alkaline Phosphatase Lactate Dehydrogenase C-Reactive Protein Total Protein 6.0 L Albumin 3.2 L Arterial Blood Glucose Coronavirus (PCR) 05/04/21 05/05/21 05/05/21 23:32 05:00 05:13 WBC MCHC RDW Lymph % (Auto) Lymph # (Auto) Baso # (Auto) Seg Neutrophils % Seg Neuts % (Manual) Lymphocytes % (Manual) Seg Neutrophils # Seg Neutrophils # Man Lymphocytes # (Manual) D-Dimer ABG pH POC ABG pO2 ABG pO2 ABG HCO3 ABG O2 Saturation ABG Base Excess ABG Oxyhemoglobin ABG Sodium ABG Chloride ABG Glucose Oxyhemoglobin Carboxyhemoglobin Sodium 132 L Potassium Chloride 96.4 L Carbon Dioxide BUN 22 H Creatinine 0.3 L Glucose 228 H POC Glucose 154 H 260 H Hemoglobin A1c Ferritin AST ALT 67 H Alkaline Phosphatase Lactate Dehydrogenase C-Reactive Protein Total Protein 6.1 L Albumin 3.2 L Arterial Blood Glucose Coronavirus (PCR) 05/05/21 05/05/21 05/05/21 11:32 17:49 23:07 WBC MCHC RDW Lymph % (Auto) Lymph # (Auto) Baso # (Auto) Seg Neutrophils % Seg Neuts % (Manual) Lymphocytes % (Manual) Seg Neutrophils # Seg Neutrophils # Man Lymphocytes # (Manual) D-Dimer ABG pH POC ABG pO2 ABG pO2 ABG HCO3 ABG O2 Saturation ABG Base Excess ABG Oxyhemoglobin ABG Sodium ABG Chloride ABG Glucose Oxyhemoglobin Carboxyhemoglobin Sodium Potassium Chloride Carbon Dioxide BUN Creatinine Glucose POC Glucose 279 H 308 H 213 H Hemoglobin A1c Ferritin AST ALT Alkaline Phosphatase Lactate Dehydrogenase C-Reactive Protein Total Protein Albumin Arterial Blood Glucose Coronavirus (PCR) 05/06/21 05/06/21 05/06/21 05:00 05:00 05:20 WBC MCHC RDW 16.8 H Lymph % (Auto) Lymph # (Auto) Baso # (Auto) Seg Neutrophils % Seg Neuts % (Manual) 99.0 H Lymphocytes % (Manual) Seg Neutrophils # Seg Neutrophils # Man 10.9 H Lymphocytes # (Manual) 0.0 L D-Dimer ABG pH POC ABG pO2 ABG pO2 ABG HCO3 ABG O2 Saturation ABG Base Excess ABG Oxyhemoglobin ABG Sodium ABG Chloride ABG Glucose Oxyhemoglobin Carboxyhemoglobin Sodium 133 L Potassium Chloride Carbon Dioxide BUN 21 H Creatinine 0.3 L Glucose 259 H POC Glucose 308 H Hemoglobin A1c Ferritin AST ALT Alkaline Phosphatase Lactate Dehydrogenase C-Reactive Protein Total Protein Albumin 3.2 L Arterial Blood Glucose Coronavirus (PCR) 05/06/21 05/06/21 05/06/21 11:24 17:54 21:32 WBC MCHC RDW Lymph % (Auto) Lymph # (Auto) Baso # (Auto) Seg Neutrophils % Seg Neuts % (Manual) Lymphocytes % (Manual) Seg Neutrophils # Seg Neutrophils # Man Lymphocytes # (Manual) D-Dimer ABG pH POC ABG pO2 ABG pO2 ABG HCO3 ABG O2 Saturation ABG Base Excess ABG Oxyhemoglobin ABG Sodium ABG Chloride ABG Glucose Oxyhemoglobin Carboxyhemoglobin Sodium Potassium Chloride Carbon Dioxide BUN Creatinine Glucose POC Glucose 262 H 124 H 246 H Hemoglobin A1c Ferritin AST ALT Alkaline Phosphatase Lactate Dehydrogenase C-Reactive Protein Total Protein Albumin Arterial Blood Glucose Coronavirus (PCR) 05/06/21 05/07/21 05/07/21 23:10 04:54 04:54 WBC MCHC RDW Lymph % (Auto) Lymph # (Auto) Baso # (Auto) Seg Neutrophils % Seg Neuts % (Manual) Lymphocytes % (Manual) Seg Neutrophils # Seg Neutrophils # Man Lymphocytes # (Manual) D-Dimer 1609.28 H ABG pH POC ABG pO2 ABG pO2 ABG HCO3 ABG O2 Saturation ABG Base Excess ABG Oxyhemoglobin ABG Sodium ABG Chloride ABG Glucose Oxyhemoglobin Carboxyhemoglobin Sodium 136 L Potassium Chloride Carbon Dioxide BUN 23 H Creatinine 0.3 L Glucose 110 H POC Glucose 249 H Hemoglobin A1c Ferritin AST ALT Alkaline Phosphatase Lactate Dehydrogenase C-Reactive Protein Total Protein 6.2 L Albumin 3.0 L Arterial Blood Glucose Coronavirus (PCR) 05/07/21 05/07/21 05/07/21 04:54 04:54 11:41 WBC MCHC RDW Lymph % (Auto) Lymph # (Auto) Baso # (Auto) Seg Neutrophils % Seg Neuts % (Manual) Lymphocytes % (Manual) Seg Neutrophils # Seg Neutrophils # Man Lymphocytes # (Manual) D-Dimer ABG pH POC ABG pO2 ABG pO2 ABG HCO3 ABG O2 Saturation ABG Base Excess ABG Oxyhemoglobin ABG Sodium ABG Chloride ABG Glucose Oxyhemoglobin Carboxyhemoglobin Sodium Potassium Chloride Carbon Dioxide BUN Creatinine Glucose POC Glucose 118 H Hemoglobin A1c Ferritin 296.1 H AST ALT Alkaline Phosphatase Lactate Dehydrogenase 724 H C-Reactive Protein Total Protein Albumin Arterial Blood Glucose Coronavirus (PCR) 05/07/21 05/07/21 05/08/21 16:43 22:34 06:44 WBC MCHC RDW Lymph % (Auto) Lymph # (Auto) Baso # (Auto) Seg Neutrophils % Seg Neuts % (Manual) Lymphocytes % (Manual) Seg Neutrophils # Seg Neutrophils # Man Lymphocytes # (Manual) D-Dimer ABG pH POC ABG pO2 ABG pO2 ABG HCO3 ABG O2 Saturation ABG Base Excess ABG Oxyhemoglobin ABG Sodium ABG Chloride ABG Glucose Oxyhemoglobin Carboxyhemoglobin Sodium Potassium Chloride Carbon Dioxide BUN Creatinine Glucose POC Glucose 159 H 233 H 235 H Hemoglobin A1c Ferritin AST ALT Alkaline Phosphatase Lactate Dehydrogenase C-Reactive Protein Total Protein Albumin Arterial Blood Glucose Coronavirus (PCR) 05/08/21 05/08/21 05/08/21 07:49 11:56 17:13 WBC MCHC RDW Lymph % (Auto) Lymph # (Auto) Baso # (Auto) Seg Neutrophils % Seg Neuts % (Manual) Lymphocytes % (Manual) Seg Neutrophils # Seg Neutrophils # Man Lymphocytes # (Manual) D-Dimer ABG pH POC ABG pO2 ABG pO2 ABG HCO3 ABG O2 Saturation ABG Base Excess ABG Oxyhemoglobin ABG Sodium ABG Chloride ABG Glucose Oxyhemoglobin Carboxyhemoglobin Sodium Potassium Chloride Carbon Dioxide BUN Creatinine Glucose POC Glucose 219 H 184 H 182 H Hemoglobin A1c Ferritin AST ALT Alkaline Phosphatase Lactate Dehydrogenase C-Reactive Protein Total Protein Albumin Arterial Blood Glucose Coronavirus (PCR) 05/08/21 05/09/21 05/09/21 23:35 05:20 05:20 WBC MCHC RDW Lymph % (Auto) Lymph # (Auto) Baso # (Auto) Seg Neutrophils % Seg Neuts % (Manual) Lymphocytes % (Manual) Seg Neutrophils # Seg Neutrophils # Man Lymphocytes # (Manual) D-Dimer 1003.87 H ABG pH POC ABG pO2 ABG pO2 ABG HCO3 ABG O2 Saturation ABG Base Excess ABG Oxyhemoglobin ABG Sodium ABG Chloride ABG Glucose Oxyhemoglobin Carboxyhemoglobin Sodium Potassium Chloride Carbon Dioxide BUN Creatinine Glucose POC Glucose 198 H Hemoglobin A1c Ferritin 378.7 H AST ALT Alkaline Phosphatase Lactate Dehydrogenase C-Reactive Protein Total Protein Albumin Arterial Blood Glucose Coronavirus (PCR) 05/09/21 05/09/21 05/09/21 05:20 06:04 12:53 WBC MCHC RDW Lymph % (Auto) Lymph # (Auto) Baso # (Auto) Seg Neutrophils % Seg Neuts % (Manual) Lymphocytes % (Manual) Seg Neutrophils # Seg Neutrophils # Man Lymphocytes # (Manual) D-Dimer ABG pH POC ABG pO2 ABG pO2 ABG HCO3 ABG O2 Saturation ABG Base Excess ABG Oxyhemoglobin ABG Sodium ABG Chloride ABG Glucose Oxyhemoglobin Carboxyhemoglobin Sodium Potassium Chloride Carbon Dioxide BUN Creatinine Glucose POC Glucose 159 H 180 H Hemoglobin A1c Ferritin AST ALT Alkaline Phosphatase Lactate Dehydrogenase 558 H C-Reactive Protein 2.40 H Total Protein Albumin Arterial Blood Glucose Coronavirus (PCR) 05/09/21 05/09/21 05/10/21 16:43 21:27 10:18 WBC MCHC RDW Lymph % (Auto) Lymph # (Auto) Baso # (Auto) Seg Neutrophils % Seg Neuts % (Manual) Lymphocytes % (Manual) Seg Neutrophils # Seg Neutrophils # Man Lymphocytes # (Manual) D-Dimer ABG pH POC ABG pO2 ABG pO2 ABG HCO3 ABG O2 Saturation ABG Base Excess ABG Oxyhemoglobin ABG Sodium ABG Chloride ABG Glucose Oxyhemoglobin Carboxyhemoglobin Sodium Potassium Chloride Carbon Dioxide BUN Creatinine Glucose POC Glucose 212 H 285 H 261 H Hemoglobin A1c Ferritin AST ALT Alkaline Phosphatase Lactate Dehydrogenase C-Reactive Protein Total Protein Albumin Arterial Blood Glucose Coronavirus (PCR) 05/10/21 05/10/21 05/11/21 17:58 18:02 00:29 WBC MCHC RDW Lymph % (Auto) Lymph # (Auto) Baso # (Auto) Seg Neutrophils % Seg Neuts % (Manual) Lymphocytes % (Manual) Seg Neutrophils # Seg Neutrophils # Man Lymphocytes # (Manual) D-Dimer ABG pH POC ABG pO2 ABG pO2 ABG HCO3 ABG O2 Saturation ABG Base Excess ABG Oxyhemoglobin ABG Sodium ABG Chloride ABG Glucose Oxyhemoglobin Carboxyhemoglobin Sodium Potassium Chloride Carbon Dioxide BUN Creatinine Glucose POC Glucose 213 H 179 H 149 H Hemoglobin A1c Ferritin AST ALT Alkaline Phosphatase Lactate Dehydrogenase C-Reactive Protein Total Protein Albumin Arterial Blood Glucose Coronavirus (PCR) 05/11/21 05/11/21 05/11/21 05:22 11:32 17:00 WBC 14.9 H MCHC RDW 18.9 H Lymph % (Auto) 4.9 L Lymph # (Auto) 0.7 L Baso # (Auto) 0.2 H Seg Neutrophils % Seg Neuts % (Manual) Lymphocytes % (Manual) Seg Neutrophils # 13.3 H Seg Neutrophils # Man Lymphocytes # (Manual) D-Dimer ABG pH POC ABG pO2 ABG pO2 ABG HCO3 ABG O2 Saturation ABG Base Excess ABG Oxyhemoglobin ABG Sodium ABG Chloride ABG Glucose Oxyhemoglobin Carboxyhemoglobin Sodium Potassium Chloride Carbon Dioxide BUN Creatinine Glucose POC Glucose 162 H 179 H Hemoglobin A1c Ferritin AST ALT Alkaline Phosphatase Lactate Dehydrogenase C-Reactive Protein Total Protein Albumin Arterial Blood Glucose Coronavirus (PCR) 05/11/21 05/11/21 05/11/21 17:00 17:33 22:03 WBC MCHC RDW Lymph % (Auto) Lymph # (Auto) Baso # (Auto) Seg Neutrophils % Seg Neuts % (Manual) Lymphocytes % (Manual) Seg Neutrophils # Seg Neutrophils # Man Lymphocytes # (Manual) D-Dimer ABG pH POC ABG pO2 ABG pO2 ABG HCO3 ABG O2 Saturation ABG Base Excess ABG Oxyhemoglobin ABG Sodium ABG Chloride ABG Glucose Oxyhemoglobin Carboxyhemoglobin Sodium 135 L Potassium Chloride 97.3 L Carbon Dioxide BUN 21 H Creatinine 0.3 L Glucose 133 H POC Glucose 140 H 282 H Hemoglobin A1c Ferritin AST ALT 60 H Alkaline Phosphatase Lactate Dehydrogenase C-Reactive Protein Total Protein Albumin 3.1 L Arterial Blood Glucose Coronavirus (PCR) 05/12/21 05/12/21 05/12/21 04:05 04:05 04:05 WBC MCHC RDW 18.4 H Lymph % (Auto) Lymph # (Auto) Baso # (Auto) Seg Neutrophils % Seg Neuts % (Manual) 94.0 H Lymphocytes % (Manual) 4.0 L Seg Neutrophils # Seg Neutrophils # Man Lymphocytes # (Manual) 0.3 L D-Dimer ABG pH POC ABG pO2 ABG pO2 ABG HCO3 ABG O2 Saturation ABG Base Excess ABG Oxyhemoglobin ABG Sodium ABG Chloride ABG Glucose Oxyhemoglobin Carboxyhemoglobin Sodium 136 L Potassium Chloride Carbon Dioxide BUN 18 H Creatinine 0.2 L Glucose 142 H POC Glucose Hemoglobin A1c Ferritin 350.7 H AST ALT Alkaline Phosphatase Lactate Dehydrogenase 546 H C-Reactive Protein Total Protein 6.1 L Albumin 3.0 L Arterial Blood Glucose Coronavirus (PCR) 05/12/21 05/12/21 05/12/21 05:11 11:17 16:27 WBC MCHC RDW Lymph % (Auto) Lymph # (Auto) Baso # (Auto) Seg Neutrophils % Seg Neuts % (Manual) Lymphocytes % (Manual) Seg Neutrophils # Seg Neutrophils # Man Lymphocytes # (Manual) D-Dimer ABG pH POC ABG pO2 ABG pO2 ABG HCO3 ABG O2 Saturation ABG Base Excess ABG Oxyhemoglobin ABG Sodium ABG Chloride ABG Glucose Oxyhemoglobin Carboxyhemoglobin Sodium Potassium Chloride Carbon Dioxide BUN Creatinine Glucose POC Glucose 152 H 190 H 261 H Hemoglobin A1c Ferritin AST ALT Alkaline Phosphatase Lactate Dehydrogenase C-Reactive Protein Total Protein Albumin Arterial Blood Glucose Coronavirus (PCR) 05/12/21 05/13/21 05/13/21 20:55 11:08 21:41 WBC MCHC RDW Lymph % (Auto) Lymph # (Auto) Baso # (Auto) Seg Neutrophils % Seg Neuts % (Manual) Lymphocytes % (Manual) Seg Neutrophils # Seg Neutrophils # Man Lymphocytes # (Manual) D-Dimer ABG pH POC ABG pO2 ABG pO2 ABG HCO3 ABG O2 Saturation ABG Base Excess ABG Oxyhemoglobin ABG Sodium ABG Chloride ABG Glucose Oxyhemoglobin Carboxyhemoglobin Sodium Potassium Chloride Carbon Dioxide BUN Creatinine Glucose POC Glucose 231 H 106 H 174 H Hemoglobin A1c Ferritin AST ALT Alkaline Phosphatase Lactate Dehydrogenase C-Reactive Protein Total Protein Albumin Arterial Blood Glucose Coronavirus (PCR) 05/14/21 05/14/21 05/14/21 00:53 02:23 06:06 WBC MCHC RDW Lymph % (Auto) Lymph # (Auto) Baso # (Auto) Seg Neutrophils % Seg Neuts % (Manual) Lymphocytes % (Manual) Seg Neutrophils # Seg Neutrophils # Man Lymphocytes # (Manual) D-Dimer ABG pH POC ABG pO2 ABG pO2 130.3 H ABG HCO3 30.6 H ABG O2 Saturation ABG Base Excess 4.9 H ABG Oxyhemoglobin ABG Sodium ABG Chloride ABG Glucose Oxyhemoglobin Carboxyhemoglobin Sodium Potassium Chloride Carbon Dioxide BUN Creatinine Glucose POC Glucose 229 H 119 H Hemoglobin A1c Ferritin AST ALT Alkaline Phosphatase Lactate Dehydrogenase C-Reactive Protein Total Protein Albumin Arterial Blood Glucose Coronavirus (PCR) 05/14/21 05/14/21 05/14/21 07:13 07:13 07:13 WBC MCHC RDW Lymph % (Auto) Lymph # (Auto) Baso # (Auto) Seg Neutrophils % Seg Neuts % (Manual) Lymphocytes % (Manual) Seg Neutrophils # Seg Neutrophils # Man Lymphocytes # (Manual) D-Dimer 712.80 H ABG pH POC ABG pO2 ABG pO2 ABG HCO3 ABG O2 Saturation ABG Base Excess ABG Oxyhemoglobin ABG Sodium ABG Chloride ABG Glucose Oxyhemoglobin Carboxyhemoglobin Sodium 133 L Potassium Chloride 95.5 L Carbon Dioxide 32 H BUN Creatinine 0.2 L Glucose 137 H POC Glucose Hemoglobin A1c Ferritin 283.5 H AST ALT 63 H Alkaline Phosphatase Lactate Dehydrogenase 563 H C-Reactive Protein Total Protein 6.1 L Albumin 3.0 L Arterial Blood Glucose Coronavirus (PCR) 05/14/21 05/14/2121 12:21 15:33 21:50 WBC MCHC RDW Lymph % (Auto) Lymph # (Auto) Baso # (Auto) Seg Neutrophils % Seg Neuts % (Manual) Lymphocytes % (Manual) Seg Neutrophils # Seg Neutrophils # Man Lymphocytes # (Manual) D-Dimer ABG pH POC ABG pO2 ABG pO2 ABG HCO3 ABG O2 Saturation ABG Base Excess ABG Oxyhemoglobin ABG Sodium ABG Chloride ABG Glucose Oxyhemoglobin Carboxyhemoglobin Sodium Potassium Chloride Carbon Dioxide BUN Creatinine Glucose POC Glucose 143 H 204 H 202 H Hemoglobin A1c Ferritin AST ALT Alkaline Phosphatase Lactate Dehydrogenase C-Reactive Protein Total Protein Albumin Arterial Blood Glucose Coronavirus (PCR) 05/15/21 05/15/21 05/15/21 05:05 11:12 16:39 WBC MCHC RDW Lymph % (Auto) Lymph # (Auto) Baso # (Auto) Seg Neutrophils % Seg Neuts % (Manual) Lymphocytes % (Manual) Seg Neutrophils # Seg Neutrophils # Man Lymphocytes # (Manual) D-Dimer ABG pH POC ABG pO2 ABG pO2 ABG HCO3 ABG O2 Saturation ABG Base Excess ABG Oxyhemoglobin ABG Sodium ABG Chloride ABG Glucose Oxyhemoglobin Carboxyhemoglobin Sodium Potassium Chloride Carbon Dioxide BUN Creatinine Glucose POC Glucose 125 H 201 H 241 H Hemoglobin A1c Ferritin AST ALT Alkaline Phosphatase Lactate Dehydrogenase C-Reactive Protein Total Protein Albumin Arterial Blood Glucose Coronavirus (PCR) 05/15/21 05/16/21 05/16/21 21:31 05:04 10:40 WBC MCHC RDW Lymph % (Auto) Lymph # (Auto) Baso # (Auto) Seg Neutrophils % Seg Neuts % (Manual) Lymphocytes % (Manual) Seg Neutrophils # Seg Neutrophils # Man Lymphocytes # (Manual) D-Dimer ABG pH POC ABG pO2 ABG pO2 ABG HCO3 ABG O2 Saturation ABG Base Excess ABG Oxyhemoglobin ABG Sodium ABG Chloride ABG Glucose Oxyhemoglobin Carboxyhemoglobin Sodium Potassium Chloride Carbon Dioxide BUN Creatinine Glucose POC Glucose 234 H 123 H 231 H Hemoglobin A1c Ferritin AST ALT Alkaline Phosphatase Lactate Dehydrogenase C-Reactive Protein Total Protein Albumin Arterial Blood Glucose Coronavirus (PCR) 05/16/21 05/16/21 05/17/21 18:23 21:29 06:20 WBC MCHC RDW 18.8 H Lymph % (Auto) 10.2 L Lymph # (Auto) 0.8 L Baso # (Auto) Seg Neutrophils % 85.8 H Seg Neuts % (Manual) Lymphocytes % (Manual) Seg Neutrophils # Seg Neutrophils # Man Lymphocytes # (Manual) D-Dimer ABG pH POC ABG pO2 ABG pO2 ABG HCO3 ABG O2 Saturation ABG Base Excess ABG Oxyhemoglobin ABG Sodium ABG Chloride ABG Glucose Oxyhemoglobin Carboxyhemoglobin Sodium Potassium Chloride Carbon Dioxide BUN Creatinine Glucose POC Glucose 266 H 234 H Hemoglobin A1c Ferritin AST ALT Alkaline Phosphatase Lactate Dehydrogenase C-Reactive Protein Total Protein Albumin Arterial Blood Glucose Coronavirus (PCR) 05/17/21 05/17/21 05/17/21 06:20 11:06 16:36 WBC MCHC RDW Lymph % (Auto) Lymph # (Auto) Baso # (Auto) Seg Neutrophils % Seg Neuts % (Manual) Lymphocytes % (Manual) Seg Neutrophils # Seg Neutrophils # Man Lymphocytes # (Manual) D-Dimer ABG pH POC ABG pO2 ABG pO2 ABG HCO3 ABG O2 Saturation ABG Base Excess ABG Oxyhemoglobin ABG Sodium ABG Chloride ABG Glucose Oxyhemoglobin Carboxyhemoglobin Sodium Potassium Chloride Carbon Dioxide 33 H BUN Creatinine 0.2 L Glucose 101 H POC Glucose 209 H 180 H Hemoglobin A1c Ferritin AST ALT Alkaline Phosphatase Lactate Dehydrogenase C-Reactive Protein Total Protein Albumin Arterial Blood Glucose Coronavirus (PCR) 05/17/21 05/18/21 05/18/21 21:06 12:00 15:06 WBC MCHC RDW Lymph % (Auto) Lymph # (Auto) Baso # (Auto) Seg Neutrophils % Seg Neuts % (Manual) Lymphocytes % (Manual) Seg Neutrophils # Seg Neutrophils # Man Lymphocytes # (Manual) D-Dimer 874.02 H ABG pH POC ABG pO2 ABG pO2 ABG HCO3 ABG O2 Saturation ABG Base Excess ABG Oxyhemoglobin ABG Sodium ABG Chloride ABG Glucose Oxyhemoglobin Carboxyhemoglobin Sodium Potassium Chloride Carbon Dioxide BUN Creatinine Glucose POC Glucose 256 H 139 H Hemoglobin A1c Ferritin AST ALT Alkaline Phosphatase Lactate Dehydrogenase C-Reactive Protein Total Protein Albumin Arterial Blood Glucose Coronavirus (PCR) 05/18/21 05/18/21 05/18/21 15:06 15:06 16:08 WBC MCHC RDW Lymph % (Auto) Lymph # (Auto) Baso # (Auto) Seg Neutrophils % Seg Neuts % (Manual) Lymphocytes % (Manual) Seg Neutrophils # Seg Neutrophils # Man Lymphocytes # (Manual) D-Dimer ABG pH POC ABG pO2 ABG pO2 ABG HCO3 ABG O2 Saturation ABG Base Excess ABG Oxyhemoglobin ABG Sodium ABG Chloride ABG Glucose Oxyhemoglobin Carboxyhemoglobin Sodium Potassium Chloride Carbon Dioxide BUN Creatinine Glucose POC Glucose 178 H Hemoglobin A1c Ferritin 289.6 H AST ALT Alkaline Phosphatase Lactate Dehydrogenase 605 H C-Reactive Protein Total Protein Albumin Arterial Blood Glucose Coronavirus (PCR) 05/18/21 05/19/21 05/19/21 21:22 11:57 15:26 WBC MCHC RDW Lymph % (Auto) Lymph # (Auto) Baso # (Auto) Seg Neutrophils % Seg Neuts % (Manual) Lymphocytes % (Manual) Seg Neutrophils # Seg Neutrophils # Man Lymphocytes # (Manual) D-Dimer ABG pH POC ABG pO2 ABG pO2 ABG HCO3 ABG O2 Saturation ABG Base Excess ABG Oxyhemoglobin ABG Sodium ABG Chloride ABG Glucose Oxyhemoglobin Carboxyhemoglobin Sodium Potassium Chloride Carbon Dioxide BUN Creatinine Glucose POC Glucose 241 H 201 H 209 H Hemoglobin A1c Ferritin AST ALT Alkaline Phosphatase Lactate Dehydrogenase C-Reactive Protein Total Protein Albumin Arterial Blood Glucose Coronavirus (PCR) 05/19/21 05/20/21 05/20/21 20:59 07:38 08:01 WBC MCHC RDW 19.7 H Lymph % (Auto) 8.3 L Lymph # (Auto) 0.8 L Baso # (Auto) Seg Neutrophils % 88.6 H Seg Neuts % (Manual) Lymphocytes % (Manual) Seg Neutrophils # 8.4 H Seg Neutrophils # Man Lymphocytes # (Manual) D-Dimer ABG pH POC ABG pO2 ABG pO2 ABG HCO3 ABG O2 Saturation ABG Base Excess ABG Oxyhemoglobin ABG Sodium ABG Chloride ABG Glucose Oxyhemoglobin Carboxyhemoglobin Sodium Potassium Chloride Carbon Dioxide BUN Creatinine Glucose POC Glucose 226 H 130 H Hemoglobin A1c Ferritin AST ALT Alkaline Phosphatase Lactate Dehydrogenase C-Reactive Protein Total Protein Albumin Arterial Blood Glucose Coronavirus (PCR) 05/20/21 05/20/21 05/20/21 08:01 11:00 16:43 WBC MCHC RDW Lymph % (Auto) Lymph # (Auto) Baso # (Auto) Seg Neutrophils % Seg Neuts % (Manual) Lymphocytes % (Manual) Seg Neutrophils # Seg Neutrophils # Man Lymphocytes # (Manual) D-Dimer ABG pH POC ABG pO2 ABG pO2 ABG HCO3 ABG O2 Saturation ABG Base Excess ABG Oxyhemoglobin ABG Sodium ABG Chloride ABG Glucose Oxyhemoglobin Carboxyhemoglobin Sodium Potassium Chloride Carbon Dioxide BUN 18 H Creatinine 0.2 L Glucose 132 H POC Glucose 237 H 240 H Hemoglobin A1c Ferritin AST ALT Alkaline Phosphatase Lactate Dehydrogenase C-Reactive Protein Total Protein Albumin Arterial Blood Glucose Coronavirus (PCR) 05/20/21 05/21/21 05/21/21 21:21 07:35 11:32 WBC MCHC RDW Lymph % (Auto) Lymph # (Auto) Baso # (Auto) Seg Neutrophils % Seg Neuts % (Manual) Lymphocytes % (Manual) Seg Neutrophils # Seg Neutrophils # Man Lymphocytes # (Manual) D-Dimer ABG pH POC ABG pO2 ABG pO2 ABG HCO3 ABG O2 Saturation ABG Base Excess ABG Oxyhemoglobin ABG Sodium ABG Chloride ABG Glucose Oxyhemoglobin Carboxyhemoglobin Sodium Potassium Chloride Carbon Dioxide BUN Creatinine Glucose POC Glucose 241 H 162 H 171 H Hemoglobin A1c Ferritin AST ALT Alkaline Phosphatase Lactate Dehydrogenase C-Reactive Protein Total Protein Albumin Arterial Blood Glucose Coronavirus (PCR) 05/21/21 05/21/21 05/22/21 16:22 20:43 05:14 WBC MCHC RDW Lymph % (Auto) Lymph # (Auto) Baso # (Auto) Seg Neutrophils % Seg Neuts % (Manual) Lymphocytes % (Manual) Seg Neutrophils # Seg Neutrophils # Man Lymphocytes # (Manual) D-Dimer ABG pH POC ABG pO2 ABG pO2 ABG HCO3 ABG O2 Saturation ABG Base Excess ABG Oxyhemoglobin ABG Sodium ABG Chloride ABG Glucose Oxyhemoglobin Carboxyhemoglobin Sodium Potassium Chloride Carbon Dioxide BUN Creatinine Glucose POC Glucose 244 H 299 H 140 H Hemoglobin A1c Ferritin AST ALT Alkaline Phosphatase Lactate Dehydrogenase C-Reactive Protein Total Protein Albumin Arterial Blood Glucose Coronavirus (PCR) 05/22/21 05/22/21 05/22/21 08:45 11:54 16:15 WBC MCHC RDW Lymph % (Auto) Lymph # (Auto) Baso # (Auto) Seg Neutrophils % Seg Neuts % (Manual) Lymphocytes % (Manual) Seg Neutrophils # Seg Neutrophils # Man Lymphocytes # (Manual) D-Dimer ABG pH POC ABG pO2 ABG pO2 ABG HCO3 ABG O2 Saturation ABG Base Excess ABG Oxyhemoglobin ABG Sodium ABG Chloride ABG Glucose Oxyhemoglobin Carboxyhemoglobin Sodium Potassium Chloride Carbon Dioxide BUN Creatinine Glucose POC Glucose 133 H 265 H 221 H Hemoglobin A1c Ferritin AST ALT Alkaline Phosphatase Lactate Dehydrogenase C-Reactive Protein Total Protein Albumin Arterial Blood Glucose Coronavirus (PCR) 05/22/21 05/23/21 05/23/21 21:43 08:20 09:50 WBC MCHC RDW Lymph % (Auto) Lymph # (Auto) Baso # (Auto) Seg Neutrophils % Seg Neuts % (Manual) Lymphocytes % (Manual) Seg Neutrophils # Seg Neutrophils # Man Lymphocytes # (Manual) D-Dimer 910.38 H ABG pH POC ABG pO2 ABG pO2 ABG HCO3 ABG O2 Saturation ABG Base Excess ABG Oxyhemoglobin ABG Sodium ABG Chloride ABG Glucose Oxyhemoglobin Carboxyhemoglobin Sodium Potassium Chloride Carbon Dioxide BUN Creatinine Glucose POC Glucose 262 H 140 H Hemoglobin A1c Ferritin AST ALT Alkaline Phosphatase Lactate Dehydrogenase C-Reactive Protein Total Protein Albumin Arterial Blood Glucose Coronavirus (PCR) 05/23/21 05/23/21 05/23/21 09:50 09:50 10:52 WBC MCHC RDW Lymph % (Auto) Lymph # (Auto) Baso # (Auto) Seg Neutrophils % Seg Neuts % (Manual) Lymphocytes % (Manual) Seg Neutrophils # Seg Neutrophils # Man Lymphocytes # (Manual) D-Dimer ABG pH POC ABG pO2 ABG pO2 ABG HCO3 ABG O2 Saturation ABG Base Excess ABG Oxyhemoglobin ABG Sodium ABG Chloride ABG Glucose Oxyhemoglobin Carboxyhemoglobin Sodium Potassium Chloride Carbon Dioxide BUN Creatinine Glucose POC Glucose 241 H Hemoglobin A1c Ferritin 244.9 H AST ALT Alkaline Phosphatase Lactate Dehydrogenase 584 H C-Reactive Protein Total Protein Albumin Arterial Blood Glucose Coronavirus (PCR) 05/23/21 05/23/21 05/24/21 17:24 21:52 07:44 WBC MCHC RDW Lymph % (Auto) Lymph # (Auto) Baso # (Auto) Seg Neutrophils % Seg Neuts % (Manual) Lymphocytes % (Manual) Seg Neutrophils # Seg Neutrophils # Man Lymphocytes # (Manual) D-Dimer ABG pH POC ABG pO2 ABG pO2 ABG HCO3 ABG O2 Saturation ABG Base Excess ABG Oxyhemoglobin ABG Sodium ABG Chloride ABG Glucose Oxyhemoglobin Carboxyhemoglobin Sodium Potassium Chloride Carbon Dioxide BUN Creatinine Glucose POC Glucose 197 H 289 H 161 H Hemoglobin A1c Ferritin AST ALT Alkaline Phosphatase Lactate Dehydrogenase C-Reactive Protein Total Protein Albumin Arterial Blood Glucose Coronavirus (PCR) 05/24/21 05/24/21 05/24/21 11:17 17:51 21:26 WBC MCHC RDW Lymph % (Auto) Lymph # (Auto) Baso # (Auto) Seg Neutrophils % Seg Neuts % (Manual) Lymphocytes % (Manual) Seg Neutrophils # Seg Neutrophils # Man Lymphocytes # (Manual) D-Dimer ABG pH POC ABG pO2 ABG pO2 ABG HCO3 ABG O2 Saturation ABG Base Excess ABG Oxyhemoglobin ABG Sodium ABG Chloride ABG Glucose Oxyhemoglobin Carboxyhemoglobin Sodium Potassium Chloride Carbon Dioxide BUN Creatinine Glucose POC Glucose 308 H 175 H 198 H Hemoglobin A1c Ferritin AST ALT Alkaline Phosphatase Lactate Dehydrogenase C-Reactive Protein Total Protein Albumin Arterial Blood Glucose Coronavirus (PCR) 05/25/21 05/25/21 05/25/21 08:14 11:13 17:13 WBC MCHC RDW Lymph % (Auto) Lymph # (Auto) Baso # (Auto) Seg Neutrophils % Seg Neuts % (Manual) Lymphocytes % (Manual) Seg Neutrophils # Seg Neutrophils # Man Lymphocytes # (Manual) D-Dimer ABG pH POC ABG pO2 ABG pO2 ABG HCO3 ABG O2 Saturation ABG Base Excess ABG Oxyhemoglobin ABG Sodium ABG Chloride ABG Glucose Oxyhemoglobin Carboxyhemoglobin Sodium Potassium Chloride Carbon Dioxide BUN Creatinine Glucose POC Glucose 203 H 339 H 235 H Hemoglobin A1c Ferritin AST ALT Alkaline Phosphatase Lactate Dehydrogenase C-Reactive Protein Total Protein Albumin Arterial Blood Glucose Coronavirus (PCR) 05/25/21 05/26/21 05/26/21 21:03 07:33 11:19 WBC MCHC RDW Lymph % (Auto) Lymph # (Auto) Baso # (Auto) Seg Neutrophils % Seg Neuts % (Manual) Lymphocytes % (Manual) Seg Neutrophils # Seg Neutrophils # Man Lymphocytes # (Manual) D-Dimer ABG pH POC ABG pO2 ABG pO2 ABG HCO3 ABG O2 Saturation ABG Base Excess ABG Oxyhemoglobin ABG Sodium ABG Chloride ABG Glucose Oxyhemoglobin Carboxyhemoglobin Sodium Potassium Chloride Carbon Dioxide BUN Creatinine Glucose POC Glucose 263 H 156 H 288 H Hemoglobin A1c Ferritin AST ALT Alkaline Phosphatase Lactate Dehydrogenase C-Reactive Protein Total Protein Albumin Arterial Blood Glucose Coronavirus (PCR) 05/26/21 05/26/21 05/27/21 16:26 20:55 07:38 WBC MCHC RDW Lymph % (Auto) Lymph # (Auto) Baso # (Auto) Seg Neutrophils % Seg Neuts % (Manual) Lymphocytes % (Manual) Seg Neutrophils # Seg Neutrophils # Man Lymphocytes # (Manual) D-Dimer ABG pH POC ABG pO2 ABG pO2 ABG HCO3 ABG O2 Saturation ABG Base Excess ABG Oxyhemoglobin ABG Sodium ABG Chloride ABG Glucose Oxyhemoglobin Carboxyhemoglobin Sodium Potassium Chloride Carbon Dioxide BUN Creatinine Glucose POC Glucose 286 H 293 H 115 H Hemoglobin A1c Ferritin AST ALT Alkaline Phosphatase Lactate Dehydrogenase C-Reactive Protein Total Protein Albumin Arterial Blood Glucose Coronavirus (PCR) 05/27/21 05/27/21 05/27/21 11:46 15:58 21:02 WBC MCHC RDW Lymph % (Auto) Lymph # (Auto) Baso # (Auto) Seg Neutrophils % Seg Neuts % (Manual) Lymphocytes % (Manual) Seg Neutrophils # Seg Neutrophils # Man Lymphocytes # (Manual) D-Dimer ABG pH POC ABG pO2 ABG pO2 ABG HCO3 ABG O2 Saturation ABG Base Excess ABG Oxyhemoglobin ABG Sodium ABG Chloride ABG Glucose Oxyhemoglobin Carboxyhemoglobin Sodium Potassium Chloride Carbon Dioxide BUN Creatinine Glucose POC Glucose 260 H 318 H 246 H Hemoglobin A1c Ferritin AST ALT Alkaline Phosphatase Lactate Dehydrogenase C-Reactive Protein Total Protein Albumin Arterial Blood Glucose Coronavirus (PCR) 05/28/21 05/28/21 05/28/21 07:34 11:31 16:36 WBC MCHC RDW Lymph % (Auto) Lymph # (Auto) Baso # (Auto) Seg Neutrophils % Seg Neuts % (Manual) Lymphocytes % (Manual) Seg Neutrophils # Seg Neutrophils # Man Lymphocytes # (Manual) D-Dimer ABG pH POC ABG pO2 ABG pO2 ABG HCO3 ABG O2 Saturation ABG Base Excess ABG Oxyhemoglobin ABG Sodium ABG Chloride ABG Glucose Oxyhemoglobin Carboxyhemoglobin Sodium Potassium Chloride Carbon Dioxide BUN Creatinine Glucose POC Glucose 185 H 297 H 183 H Hemoglobin A1c Ferritin AST ALT Alkaline Phosphatase Lactate Dehydrogenase C-Reactive Protein Total Protein Albumin Arterial Blood Glucose Coronavirus (PCR) 05/28/21 05/29/21 05/29/21 21:19 07:34 11:19 WBC MCHC RDW Lymph % (Auto) Lymph # (Auto) Baso # (Auto) Seg Neutrophils % Seg Neuts % (Manual) Lymphocytes % (Manual) Seg Neutrophils # Seg Neutrophils # Man Lymphocytes # (Manual) D-Dimer ABG pH POC ABG pO2 ABG pO2 ABG HCO3 ABG O2 Saturation ABG Base Excess ABG Oxyhemoglobin ABG Sodium ABG Chloride ABG Glucose Oxyhemoglobin Carboxyhemoglobin Sodium Potassium Chloride Carbon Dioxide BUN Creatinine Glucose POC Glucose 274 H 139 H 293 H Hemoglobin A1c Ferritin AST ALT Alkaline Phosphatase Lactate Dehydrogenase C-Reactive Protein Total Protein Albumin Arterial Blood Glucose Coronavirus (PCR) 05/29/21 05/29/21 05/30/21 16:36 22:44 05:55 WBC MCHC RDW 21.3 H Lymph % (Auto) 8.0 L Lymph # (Auto) 0.6 L Baso # (Auto) Seg Neutrophils % 88.6 H Seg Neuts % (Manual) Lymphocytes % (Manual) Seg Neutrophils # Seg Neutrophils # Man Lymphocytes # (Manual) D-Dimer ABG pH POC ABG pO2 ABG pO2 ABG HCO3 ABG O2 Saturation ABG Base Excess ABG Oxyhemoglobin ABG Sodium ABG Chloride ABG Glucose Oxyhemoglobin Carboxyhemoglobin Sodium Potassium Chloride Carbon Dioxide BUN Creatinine Glucose POC Glucose 299 H 160 H Hemoglobin A1c Ferritin AST ALT Alkaline Phosphatase Lactate Dehydrogenase C-Reactive Protein Total Protein Albumin Arterial Blood Glucose Coronavirus (PCR) 05/30/21 05/30/21 05/30/21 05:55 08:04 11:13 WBC MCHC RDW Lymph % (Auto) Lymph # (Auto) Baso # (Auto) Seg Neutrophils % Seg Neuts % (Manual) Lymphocytes % (Manual) Seg Neutrophils # Seg Neutrophils # Man Lymphocytes # (Manual) D-Dimer ABG pH POC ABG pO2 ABG pO2 ABG HCO3 ABG O2 Saturation ABG Base Excess ABG Oxyhemoglobin ABG Sodium ABG Chloride ABG Glucose Oxyhemoglobin Carboxyhemoglobin Sodium Potassium Chloride Carbon Dioxide BUN 19 H Creatinine 0.2 L Glucose 209 H POC Glucose 157 H 275 H Hemoglobin A1c Ferritin AST ALT Alkaline Phosphatase Lactate Dehydrogenase C-Reactive Protein Total Protein Albumin Arterial Blood Glucose Coronavirus (PCR) 05/30/21 05/30/21 05/31/21 17:08 22:12 07:36 WBC MCHC RDW Lymph % (Auto) Lymph # (Auto) Baso # (Auto) Seg Neutrophils % Seg Neuts % (Manual) Lymphocytes % (Manual) Seg Neutrophils # Seg Neutrophils # Man Lymphocytes # (Manual) D-Dimer ABG pH POC ABG pO2 ABG pO2 ABG HCO3 ABG O2 Saturation ABG Base Excess ABG Oxyhemoglobin ABG Sodium ABG Chloride ABG Glucose Oxyhemoglobin Carboxyhemoglobin Sodium Potassium Chloride Carbon Dioxide BUN Creatinine Glucose POC Glucose 154 H 275 H 138 H Hemoglobin A1c Ferritin AST ALT Alkaline Phosphatase Lactate Dehydrogenase C-Reactive Protein Total Protein Albumin Arterial Blood Glucose Coronavirus (PCR) 05/31/21 05/31/21 05/31/21 11:17 16:55 21:25 WBC MCHC RDW Lymph % (Auto) Lymph # (Auto) Baso # (Auto) Seg Neutrophils % Seg Neuts % (Manual) Lymphocytes % (Manual) Seg Neutrophils # Seg Neutrophils # Man Lymphocytes # (Manual) D-Dimer ABG pH POC ABG pO2 ABG pO2 ABG HCO3 ABG O2 Saturation ABG Base Excess ABG Oxyhemoglobin ABG Sodium ABG Chloride ABG Glucose Oxyhemoglobin Carboxyhemoglobin Sodium Potassium Chloride Carbon Dioxide BUN Creatinine Glucose POC Glucose 258 H 215 H 318 H Hemoglobin A1c Ferritin AST ALT Alkaline Phosphatase Lactate Dehydrogenase C-Reactive Protein Total Protein Albumin Arterial Blood Glucose Coronavirus (PCR) 06/01/21 06/01/21 06/01/21 07:23 11:38 16:52 WBC MCHC RDW Lymph % (Auto) Lymph # (Auto) Baso # (Auto) Seg Neutrophils % Seg Neuts % (Manual) Lymphocytes % (Manual) Seg Neutrophils # Seg Neutrophils # Man Lymphocytes # (Manual) D-Dimer ABG pH POC ABG pO2 ABG pO2 ABG HCO3 ABG O2 Saturation ABG Base Excess ABG Oxyhemoglobin ABG Sodium ABG Chloride ABG Glucose Oxyhemoglobin Carboxyhemoglobin Sodium Potassium Chloride Carbon Dioxide BUN Creatinine Glucose POC Glucose 157 H 259 H 150 H Hemoglobin A1c Ferritin AST ALT Alkaline Phosphatase Lactate Dehydrogenase C-Reactive Protein Total Protein Albumin Arterial Blood Glucose Coronavirus (PCR) 06/01/21 06/02/21 06/02/21 23:16 05:34 05:34 WBC MCHC RDW 21.3 H Lymph % (Auto) 9.6 L Lymph # (Auto) 0.6 L Baso # (Auto) Seg Neutrophils % 86.2 H Seg Neuts % (Manual) Lymphocytes % (Manual) Seg Neutrophils # Seg Neutrophils # Man Lymphocytes # (Manual) D-Dimer ABG pH POC ABG pO2 ABG pO2 ABG HCO3 ABG O2 Saturation ABG Base Excess ABG Oxyhemoglobin ABG Sodium ABG Chloride ABG Glucose Oxyhemoglobin Carboxyhemoglobin Sodium 136 L Potassium Chloride Carbon Dioxide BUN Creatinine 0.2 L Glucose 186 H POC Glucose 247 H Hemoglobin A1c Ferritin AST ALT 69 H Alkaline Phosphatase Lactate Dehydrogenase C-Reactive Protein Total Protein 6.1 L Albumin 3.2 L Arterial Blood Glucose Coronavirus (PCR) 06/02/21 06/02/21 06/02/21 11:25 18:23 21:32 WBC MCHC RDW Lymph % (Auto) Lymph # (Auto) Baso # (Auto) Seg Neutrophils % Seg Neuts % (Manual) Lymphocytes % (Manual) Seg Neutrophils # Seg Neutrophils # Man Lymphocytes # (Manual) D-Dimer ABG pH POC ABG pO2 ABG pO2 ABG HCO3 ABG O2 Saturation ABG Base Excess ABG Oxyhemoglobin ABG Sodium ABG Chloride ABG Glucose Oxyhemoglobin Carboxyhemoglobin Sodium Potassium Chloride Carbon Dioxide BUN Creatinine Glucose POC Glucose 157 H 299 H 246 H Hemoglobin A1c Ferritin AST ALT Alkaline Phosphatase Lactate Dehydrogenase C-Reactive Protein Total Protein Albumin Arterial Blood Glucose Coronavirus (PCR) 06/03/21 06/03/21 06/03/21 08:12 12:21 17:31 WBC MCHC RDW Lymph % (Auto) Lymph # (Auto) Baso # (Auto) Seg Neutrophils % Seg Neuts % (Manual) Lymphocytes % (Manual) Seg Neutrophils # Seg Neutrophils # Man Lymphocytes # (Manual) D-Dimer ABG pH POC ABG pO2 ABG pO2 ABG HCO3 ABG O2 Saturation ABG Base Excess ABG Oxyhemoglobin ABG Sodium ABG Chloride ABG Glucose Oxyhemoglobin Carboxyhemoglobin Sodium Potassium Chloride Carbon Dioxide BUN Creatinine Glucose POC Glucose 153 H 302 H 252 H Hemoglobin A1c Ferritin AST ALT Alkaline Phosphatase Lactate Dehydrogenase C-Reactive Protein Total Protein Albumin Arterial Blood Glucose Coronavirus (PCR) 06/03/21 22:08 WBC MCHC RDW Lymph % (Auto) Lymph # (Auto) Baso # (Auto) Seg Neutrophils % Seg Neuts % (Manual) Lymphocytes % (Manual) Seg Neutrophils # Seg Neutrophils # Man Lymphocytes # (Manual) D-Dimer ABG pH POC ABG pO2 ABG pO2 ABG HCO3 ABG O2 Saturation ABG Base Excess ABG Oxyhemoglobin ABG Sodium ABG Chloride ABG Glucose Oxyhemoglobin Carboxyhemoglobin Sodium Potassium Chloride Carbon Dioxide BUN Creatinine Glucose POC Glucose 224 H Hemoglobin A1c Ferritin AST ALT Alkaline Phosphatase Lactate Dehydrogenase C-Reactive Protein Total Protein Albumin Arterial Blood Glucose Coronavirus (PCR)
[2021-06-04] MEDS: ACETAMINOPHEN 325 MG TAB PO PRN (15:30)
--- NOTE | 2021-06-04 18:10 | Progress Note ---
Assessment and Plan Assessment and plan: I communicated through a bilingual friend of the patient over her iPhone at the bedside. I explained in detail patient's condition, severe hypoxia, requiring high flow nasal cannula oxygen Treatment plan, prognosis and discharge planning with the friend who translated to Latvian Patient verbalized understanding and asked many questions, I answered all of them with the help of the seasonal warehouse associate[patient's friend] COVID-19 positive 04/17/2021 COVID-19 test - 05/21/2021 Recheck [place] PCR test tomorrow 06/05/2021 --Acute respiratory failure with hypoxia/COVID-19 infection Patient is currently requiring high flow nasal cannula oxygen 35 L/80% FiO2/O2 sats 98% and intermittent BiPAP, patient slightly anxious wean as tolerated, Prone positioning, Home O2 evaluation Continue management per COVID-19 guidelines Pulmonary following --Sepsis secondary to COVID-19 pneumonia; Continue zinc sulfate, vitamin C, oral vitamin D3 Patient is on steroid, completed remdesivir and Actemra Prone positioning, home O2 evaluation Follow inflammatory markers ID following --oral candidiasis Continue oral nystatin solution --hyponatremia Resolved, closely monitor electrolytes sodium is 142 --coagulopathy; -Subcu heparin -Trend CBC-no need for transfusion. -Transfuse for hemoglobin less than 7 -Bilateral lower extremity Doppler ultrasounds negative for DVT ; no CTA or VQ scan to rule out PE --hyperglycemia Accu-Cheks stable at this time. -Lantus HS -SSI AC/HS -Avoid hypoglycemia --moderate protein calorie malnutrition Nutrition supplement, supportive care Nutrition consult if not already done --generalized anxiety Likely due to severe hypoxia Has shown some signs of improvement over the past 24 hours able to wean oxygen some. -Follows commands and RAY -PRN pain and anxiety meds -Patient is Latvian-speaking but understands Hebrew Added Ambien for insomnia. Anxiety resolving. add klonipin for anxiety --viral conjunctivitis right eye: Resolved would like drops for her eyes again. States eyes are dry. -Right eye- s/p 5 d course of cipro drops. suspect viral conjunctivitis. lubricating eye drops. supportive management. Erythema has resolved --septic shock s/p vasopressors .resolved Blood pressures reasonable level. Continue supportive care --DVT prophylaxis; Subcu Lovenox --DC planning; Per case management, , home O2 evaluation, possible home health upon discharge if needed Subjective Date of service: 06/03/21 Principal diagnosis: Covid-19 Interval history: 50 YO Female with GERD, Obesity, HLD presents to ED for evaluation. Patient reports "I cannot breathe". Patient states that she has experienced subjective fever, shortness of breath, malaise, body aches, dry cough, and shortness of breath over the past 1 week with progressively worsening symptoms over the same timeframe. EMS was notified and upon arrival the patient was found to be in distress and subsequent transported to [facility] for further care and evaluation of the aforementioned symptoms. The patient was seen and evaluated in the emergency department. All lab and imaging studies reviewed. Patient found to have a pulse oximetry of 86% with exertion on room air which is consistent with acute hypoxemic respiratory failure. Patient with chest x-ray which revealed bilateral pneumonia. Patient admitted to medical floor and initiated him on pneumonia protocol as well as coronavirus protocol. Patient knowledges fever but denies chills, chest pain, palpitation, skin rash, recent ill contacts, or known exposure to COVID-19. Prior admission on 01/21/2017 reviewed. All medication listed at time of admission has been reconciled. Patient is unvaccinated for coronavirus infection. 06/01/2021 Patient admitted for acute respiratory failure with hypoxia Weaning in progress Pulmonary consult appreciated COVID-pneumonia On high flow nasal cannula oxygen at 35 L. Otherwise doing well Patient wants a staff nurse midwife 06/02/2021 Patient still on high flow nasal cannula oxygen 35 L high flow and 80% 06/03/2021; Patient continues to require high flow nasal cannula oxygen 35 L, BiPAP, wean as tolerated 06/04/2021; Patient is very anxious, remains on high flow nasal cannula oxygen 30 5L/80% FiO2/98% O2 sats Wean as tolerated, pulmonary following, recheck COVID-19 test Prone positioning strongly advised, continue supportive care Worsening D-dimers in the setting of hypoxia, consider CTA chest to rule out PE History Interval history: I communicated with the patient through a bilingual friend on her iPhone at the bedside. I have seen and examined the patient at the bedside this afternoon Patient's chart medications reviewed, patient remains on high flow nasal cannula oxygen 35 L/80% FiO2/98% room air Patient is in mild distress, blood sugars uncontrolled due to steroids Vital signs noted Hospitalist Physical - Constitutional Vitals: Temp Pulse Resp BP Pulse Ox 98.8 F 98 H 20 123/76 94 06/04/21 11:34 06/04/21 11:34 06/04/21 11:34 06/04/21 11:34 06/04/21 14:40 General appearance: Present: mild distress, well-nourished, other (On high flow nasal cannula oxygen 35 L) - EENT Eyes: Present: PERRL, EOM intact - Neck Neck: Present: supple, normal ROM - Respiratory Respiratory effort: normal Respiratory: bilateral: diminished, rhonchi, negative: rales, wheezing - Cardiovascular Rhythm: regular Heart Sounds: Present: S1 & S2 - Extremities Extremities: no ischemia, No edema - Abdominal General gastrointestinal: soft, non-tender, non-distended, normal bowel sounds - Integumentary Integumentary: Present: clear, warm - Psychiatric Psychiatric: appropriate mood/affect, cooperative - Neurologic Neurologic: CNII-XII intact, moves all extremities Results - Labs CBC & Chem 7: 06/02/21 05:34 06/02/21 05:34 Labs: Laboratory Last Values WBC 6.2 K/mm3 (4.5-11.0) 06/02/21 05:34 RBC 4.29 M/mm3 (3.65-5.03) 06/02/21 05:34 Hgb 13.6 gm/dl (10.1-14.3) 06/02/21 05:34 Hct 40.5 % (30.3-42.9) 06/02/21 05:34 MCV 95 fl (79-97) 06/02/21 05:34 MCH 32 pg (28-32) 06/02/21 05:34 MCHC 34 % (30-34) 06/02/21 05:34 RDW 21.3 % (13.2-15.2) H 06/02/21 05:34 Plt Count 204 K/mm3 (140-440) 06/02/21 05:34 Lymph % (Auto) 9.6 % (13.4-35.0) L 06/02/21 05:34 [place]y % (Auto) 3.9 % (0.0-7.3) 06/02/21 05:34 Eos % (Auto) 0.0 % (0.0-4.3) 06/02/21 05:34 Baso % (Auto) 0.3 % (0.0-1.8) 06/02/21 05:34 Lymph # (Auto) 0.6 K/mm3 (1.2-5.4) L 06/02/21 05:34 [place] # (Auto) 0.2 K/mm3 (0.0-0.8) 06/02/21 05:34 Eos # (Auto) 0.0 K/mm3 (0.0-0.4) 06/02/21 05:34 Baso # (Auto) 0.0 K/mm3 (0.0-0.1) 06/02/21 05:34 Add Manual Diff Complete 05/12/21 04:05 Total Counted 100 05/12/21 04:05 Seg Neutrophils % 86.2 % (40.0-70.0) H 06/02/21 05:34 Seg Neuts % (Manual) 94.0 % (40.0-70.0) H 05/12/21 04:05 Band Neutrophils % 1.0 % 05/12/21 04:05 Lymphocytes % (Manual) 4.0 % (13.4-35.0) L 05/12/21 04:05 Monocytes % (Manual) 1.0 % (0.0-7.3) 05/12/21 04:05 Nucleated RBC % Not Reportable 05/12/21 04:05 Seg Neutrophils # 5.4 K/mm3 (1.8-7.7) 06/02/21 05:34 Seg Neutrophils # Man 6.4 K/mm3 (1.8-7.7) 05/12/21 04:05 Band Neutrophils # 0.1 K/mm3 05/12/21 04:05 Lymphocytes # (Manual) 0.3 K/mm3 (1.2-5.4) L 05/12/21 04:05 Abs React Lymphs (Man) 0.0 K/mm3 05/12/21 04:05 Monocytes # (Manual) 0.1 K/mm3 (0.0-0.8) 05/12/21 04:05 Eosinophils # (Manual) 0.0 K/mm3 (0.0-0.4) 05/12/21 04:05 Basophils # (Manual) 0.0 K/mm3 (0.0-0.1) 05/12/21 04:05 Metamyelocytes # 0.0 K/mm3 05/12/21 04:05 Myelocytes # 0.0 K/mm3 05/12/21 04:05 Promyelocytes # 0.0 K/mm3 05/12/21 04:05 Blast Cells # 0.0 K/mm3 05/12/21 04:05 WBC Morphology Not Reportable 05/12/21 04:05 Hypersegmented Neuts Not Reportable 05/12/21 04:05 Hyposegmented Neuts Not Reportable 05/12/21 04:05 Hypogranular Neuts Not Reportable 05/12/21 04:05 Smudge Cells Not Reportable 05/12/21 04:05 Toxic Granulation Not Reportable 05/12/21 04:05 Toxic Vacuolation Not Reportable 05/12/21 04:05 Dohle Bodies Not Reportable 05/12/21 04:05 Pelger-Huet Anomaly Not Reportable 05/12/21 04:05 Janelle Rods Not Reportable 05/12/21 04:05 Platelet Estimate Consistent w auto 05/12/21 04:05 Clumped Platelets Not Reportable 05/12/21 04:05 Plt Clumps, EDTA Not Reportable 05/12/21 04:05 Large Platelets Not Reportable 05/12/21 04:05 Giant Platelets Not Reportable 05/12/21 04:05 Platelet Satelliting Not Reportable 05/12/21 04:05 Plt Morphology Comment Not Reportable 05/12/21 04:05 RBC Morphology Normal 05/12/21 04:05 Dimorphic RBCs Not Reportable 05/12/21 04:05 Polychromasia Not Reportable 05/12/21 04:05 Hypochromasia Not Reportable 05/12/21 04:05 Poikilocytosis Not Reportable 05/12/21 04:05 Anisocytosis Not Reportable 05/12/21 04:05 Microcytosis Not Reportable 05/12/21 04:05 Macrocytosis Not Reportable 05/12/21 04:05 Spherocytes Not Reportable 05/12/21 04:05 Pappenheimer Bodies Not Reportable 05/12/21 04:05 Sickle Cells Not Reportable 05/12/21 04:05 Target Cells Not Reportable 05/12/21 04:05 Tear Drop Cells Not Reportable 05/12/21 04:05 Ovalocytes Not Reportable 05/12/21 04:05 Helmet Cells Not Reportable 05/12/21 04:05 Ahu[place] Bodies Not Reportable 05/12/21 04:05 [place] Rings Not Reportable 05/12/21 04:05 [place] Cells Not Reportable 05/12/21 04:05 Bite Cells Not Reportable 05/12/21 04:05 Crenated Cell Not Reportable 05/12/21 04:05 Elliptocytes Not Reportable 05/12/21 04:05 Acanthocytes (Spur) Not Reportable 05/12/21 04:05 Rouleaux Not Reportable 05/12/21 04:05 Hemoglobin C Crystals Not Reportable 05/12/21 04:05 Schistocytes Not Reportable 05/12/21 04:05 Malaria parasites Not Reportable 05/12/21 04:05 Justin Bodies Not Reportable 05/12/21 04:05 Hem Pathologist Commnt No 05/12/21 04:05 D-Dimer 910.38 ng/mlDDU (0-234) H 05/23/21 09:50 ABG pH 7.403 pH Units (7.350-7.450) 05/14/21 02:23 POC ABG pCO2 45.4 mmHg (32.0-48.0) 05/03/21 04:49 ABG pCO2 50.2 mm Hg 05/14/21 02:23 POC ABG pO2 65.3 mmHg (83-108) L 05/03/21 04:49 ABG pO2 130.3 mm Hg (80.0-90.0) H 05/14/21 02:23 POC ABG HCO3 18.5 05/03/21 04:49 ABG HCO3 30.6 mmol/L (20.0-26.0) H 05/14/21 02:23 ABG O2 Saturation 98.5 % (95.0-99.0) 05/14/21 02:23 ABG O2 Content 17.9 (0.0-44) 05/14/21 02:23 POC ABG Base Excess -8.9 05/03/21 04:49 ABG Base Excess 4.9 mmol/L (-2.0-3.0) H 05/14/21 02:23 ABG Hemoglobin 13.0 gm/dl (12.0-16.0) 05/14/21 02:23 ABG Oxyhemoglobin 87.8 (94-98) L 05/03/21 04:49 ABG Carboxyhemoglobin 1.4 % (0.0-5.0) 05/14/21 02:23 ABG Methemoglobin 0.6 % (0.0-1.5) 05/14/21 02:23 ABG Sodium 133.0 mmol/L (136.0-145.0) L 05/03/21 04:49 ABG Potassium 3.9 mmol/L (3.40-4.50) 05/03/21 04:49 ABG Chloride 97.0 mmol/L (98-107) L 05/03/21 04:49 ABG Glucose 403 mg/dL (65-95) H 05/03/21 04:49 Oxyhemoglobin 96.5 % (95.0-99.0) 05/14/21 02:23 Carboxyhemoglobin 0.6 (0.5-1.5) 05/03/21 04:49 FiO2 90 % 05/14/21 02:23 FiO2 % 100.0 05/03/21 04:49 Sodium 136 mmol/L (137-145) L 06/02/21 05:34 Potassium 4.3 mmol/L (3.6-5.0) 06/02/21 05:34 Chloride 99.0 mmol/L (98-107) 06/02/21 05:34 Carbon Dioxide 29 mmol/L (22-30) 06/02/21 05:34 Anion Gap 12 mmol/L 06/02/21 05:34 BUN 16 mg/dL (7-17) 06/02/21 05:34 Creatinine 0.2 mg/dL (0.6-1.2) L 06/02/21 05:34 Estimated GFR > 60 ml/min 06/02/21 05:34 BUN/Creatinine Ratio 80 % 06/02/21 05:34 Glucose 186 mg/dL (65-100) H 06/02/21 05:34 POC Glucose 238 mg/dL (70-105) H 06/04/21 16:01 Hemoglobin A1c 8.5 % (4-6) H 04/18/21 07:36 Calcium 8.8 mg/dL (8.4-10.2) 06/02/21 05:34 Phosphorus 3.60 mg/dL (2.5-4.5) 05/06/21 05:00 Magnesium 2.00 mg/dL (1.7-2.3) 05/06/21 05:00 Ferritin 244.9 ng/mL (10.0-200.0) H 05/23/21 09:50 Total Bilirubin 0.30 mg/dL (0.1-1.2) 06/02/21 05:34 AST 22 units/L (5-40) 06/02/21 05:34 ALT 69 units/L (7-56) H 06/02/21 05:34 Alkaline Phosphatase 66 units/L (35-129) 06/02/21 05:34 Lactate Dehydrogenase 584 units/L (91-180) H 05/23/21 09:50 C-Reactive Protein 0.10 mg/dL (0.00-1.30) 05/23/21 09:50 Total Protein 6.1 g/dL (6.3-8.2) L 06/02/21 05:34 Albumin 3.2 g/dL (3.9-5) L 06/02/21 05:34 Albumin/Globulin Ratio 1.1 % 06/02/21 05:34 Triglycerides < 9 mg/dL (2-149) 05/03/21 04:30 Procalcitonin < 0.05 ng/mL (<0.15) 05/23/21 09:50 Arterial Blood Glucose 403 mg/dL (65-95) H 05/03/21 04:49 Arterial Blood Ionized Calcium 4.9 mg/dL (4.6-5.3) 05/03/21 04:49 Coronavirus (PCR) Negative (Negative) 05/21/21 09:00 Amos/IV: Voiding Method Bedpan Active Medications - Current Medications Current Medications: Generic Name Dose Route Start Last Admin Trade Name Freq PRN Reason Stop Dose Admin Acetaminophen 650 mg 04/16/21 14:00 06/04/21 15:30 Acetaminophen 325 Mg Tab PO 650 mg Q4H PRN Administration Pain MILD(1-3)/Fever >100.5/[place] Albuterol 2.5 mg 04/16/21 13:39 04/21/21 20:39 Albuterol 2.5 Mg/3 Ml Nebu IH 2.5 mg Q4HRT PRN Administration Shortness Of Breath Artificial Tears 2 drops 04/28/21 18:15 05/29/21 13:25 Hypromellose 0.5% Ophth Soln 15 Ml OU 2 drops Q4H PRN Administration Dry Eye(s) Ascorbic Acid 500 mg 04/24/21 10:00 06/04/21 09:16 Ascorbic Acid 500 Mg Tab PO 500 mg QDAY TUTU Administration Cholecalciferol 1,000 unit 04/17/21 10:00 06/04/21 09:16 Cholecalciferol (Vit D3) 1000 Unit (25 Mcg) Tab PO 1,000 unit QDAY TUTU Administration Clonazepam 1 mg 05/29/21 08:06 06/02/21 21:36 Clonazepam 0.5 Mg Tab PO 1 mg Q8H PRN Administration Anxiety Dextrose 50 ml 04/18/21 07:30 04/28/21 09:59 Dextrose 50% In Water (25gm) 50 Ml Syringe IV 50 ml Q30MIN PRN Administration Hypoglycemia Protocol Docusate Sodium 100 mg 04/30/21 10:00 06/04/21 09:16 Docusate Sodium 100 Mg Cap PO 100 mg BID TUTU Administration Enoxaparin Sodium 40 mg 05/19/21 22:00 06/03/21 21:53 Enoxaparin 40 Mg/0.4 Ml Inj SUB-Q 40 mg QDAY@2200 TUTU Administration Protocol Famotidine 20 mg 05/07/21 22:00 06/04/21 09:16 Famotidine 20 Mg Tab PO 20 mg BID TUTU Administration Insulin Glargine 25 units 05/04/21 11:05 06/04/21 09:16 Insulin Glargine 100 Units/Ml SUB-Q 25 units DAILY TUTU Administration Insulin Glargine 8 units 06/04/21 18:07 Insulin Glargine 100 Units/Ml SUB-Q QHS TUTU Insulin Human Lispro 0 unit 05/18/21 12:00 06/04/21 16:54 Insulin Lispro 100 Unit/Ml SUB-Q 4 unit ACHS TUTU Administration Protocol Lorazepam 1 mg 05/25/21 14:40 06/03/21 15:32 Lorazepam 2 Mg/Ml Vial IV 1 mg Q6H PRN Administration Agitation Methylprednisolone Sodium Succinate 40 mg 05/31/21 11:32 06/04/21 13:23 Methylprednisolone Sod Succinate 125 Mg/2 Ml Inj IV 40 mg Q8HR TUTU Administration Multi-Ingred Cream/Lotion/Oil/Oint 1 applic 05/10/21 14:00 06/04/21 13:22 Mineral Oil/Petrolatum, White Ophth Oint 3.5 Gm OU Not Given Q8HR TUTU Ondansetron HCl 4 mg 04/16/21 14:00 05/30/21 10:07 Ondansetron 4 Mg/2 Ml Inj IV 4 mg Q8H PRN Administration Nausea And Vomiting Senna 17.2 mg 05/02/21 22:00 06/03/21 22:01 Sennosides 8.6 Mg Tab PO Not Given QHS TUTU Sodium Chloride 10 ml 04/16/21 22:00 06/04/21 09:16 Sodium Chloride 0.9% 10 Ml Flush Syringe IV 10 ml BID TUTU Administration Sodium Chloride 10 ml 04/16/21 13:39 05/22/21 15:21 Sodium Chloride 0.9% 10 Ml Flush Syringe IV 10 ml PRN PRN Administration LINE FLUSH Zinc Sulfate 220 mg 04/16/21 22:00 06/04/21 09:16 Zinc Sulfate 220 Mg Cap PO 220 mg BID TUTU Administration Zolpidem Tartrate 10 mg 05/26/21 08:56 06/03/21 21:56 Zolpidem 5 Mg Tab PO 10 mg QHS PRN Administration Insomnia Nutrition/Malnutrition Assess - Dietary Evaluation Nutrition/Malnutrition Findings: Nutrition Notes Start: 04/23/21 07:41 Freq: Status: Active Protocol: Document 06/04/21 11:07 (Rec: 06/04/21 11:07 [id number]) Nutrition Notes Initial or Follow up Brief Note Current Diagnosis Respiratory Failure Other Pertinent Diagnosis oral thrush, COVID-19 pneu Current Diet GI soft Subjective/Other Information Pt continues to eat 75-100% of meals. Nutrition Intervention Revisit per MD consult or patient Sign Off request:
[2021-06-04] MEDS: ZOLPIDEM 5 MG TAB PO PRN (21:12)
[2021-06-04] MEDS: ENOXAPARIN 40 MG/0.4 ML INJ SUB-Q SCH (21:12)
[2021-06-04] MEDS: SENNOSIDES 8.6 MG TAB PO SCH (21:13)
[2021-06-05] MEDS: MINERAL OIL/PETROLATUM, WHITE OPHTH OINT 3.5 GM OU SCH ×2 (06:00→23:28)
[2021-06-05] MEDS: methylPREDNISolone Sod Succinate 125 MG/2 ML INJ IV SCH ×3 (06:22→23:31)
[2021-06-05 06:41] LABS: Blood Urea Nitrogen 17 mg/dL (7-17); Hemolysis Index 10
[2021-06-05 06:59] LABS: BUN/Creatinine Ratio 85
[2021-06-05] MEDS: INSULIN LISPRO 100 UNIT/ML SUB-Q SCH ×4 (07:56→22:00)
[2021-06-05] MEDS: DOCUSATE SODIUM 100 MG CAP PO SCH ×2 (09:08→23:28)
[2021-06-05] MEDS: ZINC SULFATE 220 MG CAP PO SCH ×2 (09:11→23:31)
[2021-06-05] MEDS: CHOLECALCIFEROL (VIT D3) 1000 UNIT (25 mcg) TAB PO SCH (09:11)
[2021-06-05] MEDS: ASCORBIC ACID 500 MG TAB PO SCH (09:11)
[2021-06-05] MEDS: INSULIN GLARGINE 100 UNITS/ML SUB-Q SCH ×2 (09:11→23:49)
[2021-06-05] MEDS: FAMOTIDINE 20 MG TAB PO SCH ×2 (09:11→23:29)
--- NOTE | 2021-06-05 09:12 | Progress Note ---
Assessment and Plan Assessment and plan: Patient remains on high flow nasal cannula oxygen 35 L/70% FiO2/96 O2 sats Will check CTA chest to rule out PE as D-dimers are consistently high Also requested new [place] PCR test today I communicated frequently through a bilingual friend of the patient over her iPhone at the bedside. I explained in detail patient's condition, severe hypoxia, requiring high flow nasal cannula oxygen Treatment plan, prognosis and discharge planning with the friend who translated to Mexican Patient verbalized understanding and asked many questions, I answered all of them with the help of the optical technician[patient's friend] COVID-19 positive 04/17/2021 COVID-19 test - 05/21/2021 Recheck [place] PCR test tomorrow 06/06/2021 --Acute respiratory failure with hypoxia/COVID-19 infection Patient is currently requiring high flow nasal cannula oxygen 35 L/80% FiO2/O2 sats 98% and intermittent BiPAP, patient slightly anxious wean as tolerated, Prone positioning, Home O2 evaluation Continue management per COVID-19 guidelines Pulmonary following --Sepsis secondary to COVID-19 pneumonia; Continue zinc sulfate, vitamin C, oral vitamin D3 Patient is on steroid, completed remdesivir and Actemra Prone positioning, home O2 evaluation Follow inflammatory markers ID following --oral candidiasis Continue oral nystatin solution --hyponatremia Resolved, closely monitor electrolytes sodium is 142 --coagulopathy; -Subcu heparin -Trend CBC-no need for transfusion. -Transfuse for hemoglobin less than 7 -Bilateral lower extremity Doppler ultrasounds negative for DVT ; no CTA or VQ scan to rule out PE --hyperglycemia Accu-Cheks stable at this time. -Lantus HS -SSI AC/HS -Avoid hypoglycemia --moderate protein calorie malnutrition Nutrition supplement, supportive care Nutrition consult if not already done --generalized anxiety Likely due to severe hypoxia Has shown some signs of improvement over the past 24 hours able to wean oxygen some. -Follows commands and RAY -PRN pain and anxiety meds -Patient is Mexican-speaking but understands Lithuanian Added Ambien for insomnia. Anxiety resolving. add klonipin for anxiety --viral conjunctivitis right eye: Resolved would like drops for her eyes again. States eyes are dry. -Right eye- s/p 5 d course of cipro drops. suspect viral conjunctivitis. lubricating eye drops. supportive management. Erythema has resolved --septic shock s/p vasopressors .resolved Blood pressures reasonable level. Continue supportive care --DVT prophylaxis; Subcu Lovenox --DC planning; Per case management, , home O2 evaluation, possible home health upon discharge if needed Subjective Date of service: 06/03/21 Principal diagnosis: Covid-19 Interval history: 50 YO Female with GERD, Obesity, HLD presents to ED for evaluation. Patient reports "I cannot breathe". Patient states that she has experienced subjective fever, shortness of breath, malaise, body aches, dry cough, and shortness of b reath over the past 1 week with progressively worsening symptoms over the same timeframe. EMS was notified and upon arrival the patient was found to be in distress and subsequent transported to [facility] for further care and evaluation of the aforementioned symptoms. The patient was seen and evaluated in the emergency department. All lab and imaging studies reviewed. Patient found to have a pulse oximetry of 86% with exertion on room air which is consistent with acute hypoxemic respiratory failure. Patient with chest x-ray which revealed bilateral pneumonia. Patient admitted to medical floor and initiated him on pneumonia protocol as well as coronavirus protocol. Patient knowledges fever bu t denies chills, chest pain, palpitation, skin rash, recent ill contacts, or known exposure to COVID-19. Prior admission on 01/21/2017 reviewed. All medication listed at time of admission has been reconciled. Patient is unvaccinated for coronavirus infection. 06/01/2021 Patient admitted for acute respiratory failure with hypoxia Weaning in progress Pulmonary consult appreciated COVID-pneumonia On high flow nasal cannula oxygen at 35 L. Otherwise doing well Patient wants a rhia 06/02/2021 Patient still on high flow nasal cannula oxygen 35 L high flow and 80% 06/03/2021; Patient continues to require high flow nasal cannula oxygen 35 L, BiPAP, wean as tolerated 06/04/2021; Patient is very anxious, remains on high flow nasal cannula oxygen 30 5L/80% FiO2/98% O2 sats Wean as tolerated, pulmonary following, recheck COVID-19 test Prone positioning strongly advised, continue supportive care Worsening D-dimers in the setting of hypoxia, consider CTA chest to rule out PE 06/05/2021; COVID-19 test will be repeated tomorrow[did not get proper sample today] Continues to be on high flow oxygen, mild distress Check CTA tomorrow to rule out PE History Interval history: I have seen and examined the patient at the bedside Isolation precautions PPE protocols followed Patient remains on high flow oxygen Patient states she feels slightly better still has shortness of breath Hospitalist Physical - Constitutional Vitals: Temp Pulse Resp BP Pulse Ox 97.9 F 90 20 123/78 96 06/05/21 04:34 06/05/21 04:34 06/05/21 04:34 06/05/21 04:34 06/05/21 05:25 General appearance: Present: mild distress, well-nourished, other (On high flow nasal cannula oxygen 35 L) - EENT Eyes: Present: PERRL, EOM intact - Neck Neck: Present: supple, normal ROM - Respiratory Respiratory effort: labored Respiratory: bilateral: diminished, rhonchi, negative: rales, wheezing - Cardiovascular Rhythm: regular Heart Sounds: Present: S1 & S2 - Extremities Extremities: no ischemia, No edema - Abdominal General gastrointestinal: soft, non-tender, non-distended, normal bowel sounds - Integumentary Integumentary: Present: clear, warm - Psychiatric Psychiatric: appropriate mood/affect, cooperative - Neurologic Neurologic: CNII-XII intact, moves all extremities Results - Labs CBC & Chem 7: 06/02/21 05:34 06/05/21 05:26 Labs: Laboratory Last Values WBC 6.2 K/mm3 (4.5-11.0) 06/02/21 05:34 RBC 4.29 M/mm3 (3.65-5.03) 06/02/21 05:34 Hgb 13.6 gm/dl (10.1-14.3) 06/02/21 05:34 Hct 40.5 % (30.3-42.9) 06/02/21 05:34 MCV 95 fl (79-97) 06/02/21 05:34 MCH 32 pg (28-32) 06/02/21 05:34 MCHC 34 % (30-34) 06/02/21 05:34 RDW 21.3 % (13.2-15.2) H 06/02/21 05:34 Plt Count 204 K/mm3 (140-440) 06/02/21 05:34 Lymph % (Auto) 9.6 % (13.4-35.0) L 06/02/21 05:34 [place] % (Auto) 3.9 % (0.0-7.3) 06/02/21 05:34 Eos % (Auto) 0.0 % (0.0-4.3) 06/02/21 05:34 Baso % (Auto) 0.3 % (0.0-1.8) 06/02/21 05:34 Lymph # (Auto) 0.6 K/mm3 (1.2-5.4) L 06/02/21 05:34 [place] # (Auto) 0.2 K/mm3 (0.0-0.8) 06/02/21 05:34 Eos # (Auto) 0.0 K/mm3 (0.0-0.4) 06/02/21 05:34 Baso # (Auto) 0.0 K/mm3 (0.0-0.1) 06/02/21 05:34 Add Manual Diff Complete 05/12/21 04:05 Total Counted 100 05/12/21 04:05 Seg Neutrophils % 86.2 % (40.0-70.0) H 06/02/21 05:34 Seg Neuts % (Manual) 94.0 % (40.0-70.0) H 05/12/21 04:05 Band Neutrophils % 1.0 % 05/12/21 04:05 Lymphocytes % (Manual) 4.0 % (13.4-35.0) L 05/12/21 04:05 Monocytes % (Manual) 1.0 % (0.0-7.3) 05/12/21 04:05 Nucleated RBC % Not Reportable 05/12/21 04:05 Seg Neutrophils # 5.4 K/mm3 (1.8-7.7) 06/02/21 05:34 Seg Neutrophils # Man 6.4 K/mm3 (1.8-7.7) 05/12/21 04:05 Band Neutrophils # 0.1 K/mm3 05/12/21 04:05 Lymphocytes # (Manual) 0.3 K/mm3 (1.2-5.4) L 05/12/21 04:05 Abs React Lymphs (Man) 0.0 K/mm3 05/12/21 04:05 Monocytes # (Manual) 0.1 K/mm3 (0.0-0.8) 05/12/21 04:05 Eosinophils # (Manual) 0.0 K/mm3 (0.0-0.4) 05/12/21 04:05 Basophils # (Manual) 0.0 K/mm3 (0.0-0.1) 05/12/21 04:05 Metamyelocytes # 0.0 K/mm3 05/12/21 04:05 Myelocytes # 0.0 K/mm3 05/12/21 04:05 Promyelocytes # 0.0 K/mm3 05/12/21 04:05 Blast Cells # 0.0 K/mm3 05/12/21 04:05 WBC Morphology Not Reportable 05/12/21 04:05 Hypersegmented Neuts Not Reportable 05/12/21 04:05 Hyposegmented Neuts Not Reportable 05/12/21 04:05 Hypogranular Neuts Not Reportable 05/12/21 04:05 Smudge Cells Not Reportable 05/12/21 04:05 Toxic Granulation Not Reportable 05/12/21 04:05 Toxic Vacuolation Not Reportable 05/12/21 04:05 Dohle Bodies Not Reportable 05/12/21 04:05 Pelger-Huet Anomaly Not Reportable 05/12/21 04:05 Janelle Rods Not Reportable 05/12/21 04:05 Platelet Estimate Consistent w auto 05/12/21 04:05 Clumped Platelets Not Reportable 05/12/21 04:05 Plt Clumps, EDTA Not Reportable 05/12/21 04:05 Large Platelets Not Reportable 05/12/21 04:05 Giant Platelets Not Reportable 05/12/21 04:05 Platelet Satelliting Not Reportable 05/12/21 04:05 Plt Morphology Comment Not Reportable 05/12/21 04:05 RBC Morphology Normal 05/12/21 04:05 Dimorphic RBCs Not Reportable 05/12/21 04:05 Polychromasia Not Reportable 05/12/21 04:05 Hypochromasia Not Reportable 05/12/21 04:05 Poikilocytosis Not Reportable 05/12/21 04:05 Anisocytosis Not Reportable 05/12/21 04:05 Microcytosis Not Reportable 05/12/21 04:05 Macrocytosis Not Reportable 05/12/21 04:05 Spherocytes Not Reportable 05/12/21 04:05 Pappenheimer Bodies Not Reportable 05/12/21 04:05 Sickle Cells Not Reportable 05/12/21 04:05 Target Cells Not Reportable 05/12/21 04:05 Tear Drop Cells Not Reportable 05/12/21 04:05 Ovalocytes Not Reportable 05/12/21 04:05 Helmet Cells Not Reportable 05/12/21 04:05 [place] Bodies Not Reportable 05/12/21 04:05 [place] Rings Not Reportable 05/12/21 04:05 Crow Cells Not Reportable 05/12/21 04:05 Bite Cells Not Reportable 05/12/21 04:05 Crenated Cell Not Reportable 05/12/21 04:05 Elliptocytes Not Reportable 05/12/21 04:05 Acanthocytes (Spur) Not Reportable 05/12/21 04:05 Rouleaux Not Reportable 05/12/21 04:05 Hemoglobin C Crystals Not Reportable 05/12/21 04:05 Schistocytes Not Reportable 05/12/21 04:05 Malaria parasites Not Reportable 05/12/21 04:05 Justin Bodies Not Reportable 05/12/21 04:05 Hem Pathologist Commnt No 05/12/21 04:05 D-Dimer 488.49 ng/mlDDU (0-234) H 06/05/21 05:26 ABG pH 7.403 pH Units (7.350-7.450) 05/14/21 02:23 POC ABG pCO2 45.4 mmHg (32.0-48.0) 05/03/21 04:49 ABG pCO2 50.2 mm Hg 05/14/21 02:23 POC ABG pO2 65.3 mmHg (83-108) L 05/03/21 04:49 ABG pO2 130.3 mm Hg (80.0-90.0) H 05/14/21 02:23 POC ABG HCO3 18.5 05/03/21 04:49 ABG HCO3 30.6 mmol/L (20.0-26.0) H 05/14/21 02:23 ABG O2 Saturation 98.5 % (95.0-99.0) 05/14/21 02:23 ABG O2 Content 17.9 (0.0-44) 05/14/21 02:23 POC ABG Base Excess -8.9 05/03/21 04:49 ABG Base Excess 4.9 mmol/L (-2.0-3.0) H 05/14/21 02:23 ABG Hemoglobin 13.0 gm/dl (12.0-16.0) 05/14/21 02:23 ABG Oxyhemoglobin 87.8 (94-98) L 05/03/21 04:49 ABG Carboxyhemoglobin 1.4 % (0.0-5.0) 05/14/21 02:23 ABG Methemoglobin 0.6 % (0.0-1.5) 05/14/21 02:23 ABG Sodium 133.0 mmol/L (136.0-145.0) L 05/03/21 04:49 ABG Potassium 3.9 mmol/L (3.40-4.50) 05/03/21 04:49 ABG Chloride 97.0 mmol/L (98-107) L 05/03/21 04:49 ABG Glucose 403 mg/dL (65-95) H 05/03/21 04:49 Oxyhemoglobin 96.5 % (95.0-99.0) 05/14/21 02:23 Carboxyhemoglobin 0.6 (0.5-1.5) 05/03/21 04:49 FiO2 90 % 05/14/21 02:23 FiO2 % 100.0 05/03/21 04:49 Sodium 137 mmol/L (137-145) 06/05/21 05:26 Potassium 4.2 mmol/L (3.6-5.0) 06/05/21 05:26 Chloride 99.5 mmol/L (98-107) 06/05/21 05:26 Carbon Dioxide 27 mmol/L (22-30) 06/05/21 05:26 Anion Gap 15 mmol/L 06/05/21 05:26 BUN 17 mg/dL (7-17) 06/05/21 05:26 Creatinine 0.2 mg/dL (0.6-1.2) L 06/05/21 05:26 Estimated GFR > 60 ml/min 06/05/21 05:26 BUN/Creatinine Ratio 85 % 06/05/21 05:26 Glucose 198 mg/dL (65-100) H 06/05/21 05:26 POC Glucose 146 mg/dL (70-105) H 06/05/21 07:20 Hemoglobin A1c 8.5 % (4-6) H 04/18/21 07:36 Calcium 9.0 mg/dL (8.4-10.2) 06/05/21 05:26 Phosphorus 3.60 mg/dL (2.5-4.5) 05/06/21 05:00 Magnesium 2.00 mg/dL (1.7-2.3) 05/06/21 05:00 Ferritin 187.7 ng/mL (10.0-200.0) 06/05/21 05:26 Total Bilirubin 0.30 mg/dL (0.1-1.2) 06/02/21 05:34 AST 22 units/L (5-40) 06/02/21 05:34 ALT 69 units/L (7-56) H 06/02/21 05:34 Alkaline Phosphatase 66 units/L (35-129) 06/02/21 05:34 Lactate Dehydrogenase 475 units/L (91-180) H 06/05/21 05:26 C-Reactive Protein 0.10 mg/dL (0.00-1.30) 06/05/21 05:26 Total Protein 6.1 g/dL (6.3-8.2) L 06/02/21 05:34 Albumin 3.2 g/dL (3.9-5) L 06/02/21 05:34 Albumin/Globulin Ratio 1.1 % 06/02/21 05:34 Triglycerides < 9 mg/dL (2-149) 05/03/21 04:30 Procalcitonin < 0.05 ng/mL (<0.15) 05/23/21 09:50 Arterial Blood Glucose 403 mg/dL (65-95) H 05/03/21 04:49 Arterial Blood Ionized Calcium 4.9 mg/dL (4.6-5.3) 05/03/21 04:49 Coronavirus (PCR) Negative (Negative) 05/21/21 09:00 Amos/IV: Voiding Method Bedside Commode Active Medications - Current Medications Current Medications: Generic Name Dose Route Start Last Admin Trade Name Freq PRN Reason Stop Dose Admin Acetaminophen 650 mg 04/16/21 14:00 06/04/21 15:30 Acetaminophen 325 Mg Tab PO 650 mg Q4H PRN Administration Pain MILD(1-3)/Fever >100.5/[place] Albuterol 2.5 mg 04/16/21 13:39 04/21/21 20:39 Albuterol 2.5 Mg/3 Ml Nebu IH 2.5 mg Q4HRT PRN Administration Shortness Of Breath Artificial Tears 2 drops 04/28/21 18:15 05/29/21 13:25 Hypromellose 0.5% Ophth Soln 15 Ml OU 2 drops Q4H PRN Administration Dry Eye(s) Ascorbic Acid 500 mg 04/24/21 10:00 06/04/21 09:16 Ascorbic Acid 500 Mg Tab PO 500 mg QDAY TUTU Administration Cholecalciferol 1,000 unit 04/17/21 10:00 06/04/21 09:16 Cholecalciferol (Vit D3) 1000 Unit (25 Mcg) Tab PO 1,000 unit QDAY TUTU Administration Clonazepam 1 mg 05/29/21 08:06 06/02/21 21:36 Clonazepam 0.5 Mg Tab PO 1 mg Q8H PRN Administration Anxiety Dextrose 50 ml 04/18/21 07:30 04/28/21 09:59 Dextrose 50% In Water (25gm) 50 Ml Syringe IV 50 ml Q30MIN PRN Administration Hypoglycemia Protocol Docusate Sodium 100 mg 04/30/21 10:00 06/05/21 09:08 Docusate Sodium 100 Mg Cap PO Not Given BID TUTU Enoxaparin Sodium 40 mg 05/19/21 22:00 06/04/21 21:12 Enoxaparin 40 Mg/0.4 Ml Inj SUB-Q 40 mg QDAY@2200 TUTU Administration Protocol Famotidine 20 mg 05/07/21 22:00 06/04/21 21:12 Famotidine 20 Mg Tab PO 20 mg BID TUTU Administration Insulin Glargine 25 units 05/04/21 11:05 06/04/21 09:16 Insulin Glargine 100 Units/Ml SUB-Q 25 units DAILY TUTU Administration Insulin Glargine 8 units 06/04/21 18:07 06/04/21 21:31 Insulin Glargine 100 Units/Ml SUB-Q 8 units QHS TUTU Administration Insulin Human Lispro 0 unit 05/18/21 12:00 06/05/21 07:56 Insulin Lispro 100 Unit/Ml SUB-Q Not Given ACHS [facility] Protocol Lorazepam 1 mg 05/25/21 14:40 06/03/21 15:32 Lorazepam 2 Mg/Ml Vial IV 1 mg Q6H PRN Administration Agitation Methylprednisolone Sodium Succinate 40 mg 05/31/21 11:32 06/05/21 06:22 Methylprednisolone Sod Succinate 125 Mg/2 Ml Inj IV 40 mg Q8HR TUTU Administration Multi-Ingred Cream/Lotion/Oil/Oint 1 applic 05/10/21 14:00 06/05/21 06:00 Mineral Oil/Petrolatum, White Ophth Oint 3.5 Gm OU Not Given Q8HR [facility] Ondansetron HCl 4 mg 04/16/21 14:00 05/30/21 10:07 Ondansetron 4 Mg/2 Ml Inj IV 4 mg Q8H PRN Administration Nausea And Vomiting Senna 17.2 mg 05/02/21 22:00 06/04/21 21:13 Sennosides 8.6 Mg Tab PO Not Given QHS TUTU Sodium Chloride 10 ml 04/16/21 22:00 06/04/21 21:15 Sodium Chloride 0.9% 10 Ml Flush Syringe IV 10 ml BID TUTU Administration Sodium Chloride 10 ml 04/16/21 13:39 05/22/21 15:21 Sodium Chloride 0.9% 10 Ml Flush Syringe IV 10 ml PRN PRN Administration LINE FLUSH Zinc Sulfate 220 mg 04/16/21 22:00 06/04/21 21:12 Zinc Sulfate 220 Mg Cap PO 220 mg BID TUTU Administration Zolpidem Tartrate 10 mg 05/26/21 08:56 06/04/21 21:12 Zolpidem 5 Mg Tab PO 10 mg QHS PRN Administration Insomnia Nutrition/Malnutrition Assess - Dietary Evaluation Nutrition/Malnutrition Findings: Nutrition Notes Start: 04/23/21 07:41 Freq: Status: Active Protocol: Document 06/04/21 11:07 FABIAN (Rec: 06/04/21 11:07 FABIAN [id number]) Nutrition Notes Initial or Follow up Brief Note Current Diagnosis Respiratory Failure Other Pertinent Diagnosis oral thrush, COVID-19 pneu Current Diet GI soft Subjective/Other Information Pt continues to eat 75-100% of meals. Nutrition Intervention Revisit per MD consult or patient Sign Off request:
[2021-06-05] MEDS: SENNOSIDES 8.6 MG TAB PO SCH ×2 (22:00→23:30)
[2021-06-05] MEDS: ENOXAPARIN 40 MG/0.4 ML INJ SUB-Q SCH (23:27)
[2021-06-05] MEDS: ZOLPIDEM 5 MG TAB PO PRN (23:51)
[2021-06-05] MEDS: ACETAMINOPHEN 325 MG TAB PO PRN (23:51)
[2021-06-06] MEDS: MINERAL OIL/PETROLATUM, WHITE OPHTH OINT 3.5 GM OU SCH ×3 (07:00→22:00)
[2021-06-06] MEDS: methylPREDNISolone Sod Succinate 125 MG/2 ML INJ IV SCH ×3 (07:30→23:20)
--- NOTE | 2021-06-06 08:05 | Progress Note ---
Assessment and Plan 50 y/o female with acute respiratory failure secondary to COVID19 pneumonia. 06/06/21: Continue to wean as tolerated, will drop steroids on tomorrow. 06/04/21: Clinically no change. Will drop steroids down the end of this week. 05/31/21: Clinically no change. Not eligible for LTACH. Encourage Proning. Will drop steroids down to 40 q8 05/29/21: No acute changes clinically. Still on HFNC but not really able to wean. Continue to encourage proning. Will drop steroids further on Thursday. 05/27/21: No improvement over the weekend but also no worsening. No other strategies to offer. Please continue to encourage patient to prone. I dropped steroids on yesterday. Will wean more later in the week. 05/24/21: No new recs again for today. Will see as needed over the weekend but follow chart peripherally for changes. 05/22/21: No new recs for today. Prognosis remains guarded. 05/21/21: Wean as tolerated. Prone if able. Guarded prognosis 05/20/21: COntinue current level of care. 05/17/21: Prone if possible. Wean FiO2 for sats >88%. Continue scheduled ativan. Prognosis is very very guarded. Unfunded so not a candidate for LTACH 05/16/21: Prone if willing. Wean FIO2 if patient will allow. Anxiety control. Prognosis still remains very guarded. 05/15/21: Not sure if MAR is accurate but may have only gotten one dose of scheduled anixolytic therapy. Continue proning as tolerated, and wean FiO2 and flow for sats >88%. Prognosi remains very very guarded to poor. 05/14/21: Will discontinue the buspar and make the ativan scheduled but will do q6 as oppose to q4 and attempt to leave parameters for nursing when not to give. If anxiety could be controlled, feel that patient could be weaned further. She has no funding so she is not a candidate for LTACH. Prone if possible. Guarded prognosis. This is her day. 05/13/21: Ordered buspar 10 BID to start with to help with anxiety. Please continue to wean FiO2 as tolerated. Will remind nurse that there is PRN ativan available. Continue higher doses of steroids. Prone if able. 05/12/21: Patient may need something longer acting for anxiety. Per chart has not gotten any ativan in days. Would be ok with either buspar or low dose klonopin bid. COntinue higher doses of steroids as patient seems to be responding. Prone if possible. 05/11/21: Continue high doses of steroids and continue to wean for sats >88%. Please encourage proning. 05/10/21: Will continue this dose of steroid at least through the weekend and assess for improvement. will speak with RT about aggressive weaning. Full dose anticoagulation continues. Very very guarded to poor prognosis. 05/09/21: Going to consider increasing steroids to 125q8, maybe as early as t omorrow. continue full dose anticoagulation. 05/08/21: Continue anticoagulation and steroids. Prone if possible. Anxiety control. No objection to CTA if this can happen. Very very guarded prognosis. 05/07/21: Spoke with IMS, not opposed to full dose anticoagulation. If patient goes back on NRB HFNC combo may need to consider restarting PPN again. Encourage proning. Guarded prognosis. 05/06/21: Continue to wean FiO2 and flow for sats >88%. Tolerating diet now so will stop PPN. Continue anxiety control. Continue IV steroids. Would not object to transfer to COVID floor if bed available. Not sure why she was titrated back up to 100% from 85 as all sats documented in the RT's notes were acceptable. Same for under vital signs as well. 05/03/21: Set back last night from yesterday. Continue bipap therapy for now and attempt HFNC maybe later this afternoon. Continue to use PRN ativan but may need to schedule as she likely took off mask from anxiety. Continue IV steroids. Hold on transfer to COVID Floor. 05/02/21: Continue to wean FiO2 as tolerated for sats >88%. Will continue bipap at night. Patient has no funding so not a candidate for LTACH. Given that she has been stable and not requiring the combo of HFNC and NRB, will consider moving to COVID floor. 05/01/21: Continue to wean FiO2 for sats >88%. A sat of 90 is more than acceptable and oxygen should not be increased for this unless patient desats and remains at a sat lower than 88. Bipap at night to give some form of relief and HFNC during the day. Currently on just this alone which is improvement. Ok with daily diuresis but must monitor renal function and BP closely. She was over diuresed last week and we ended up giving fluid back. Prognosis remains guarded. 04/30/21: Will start CLinimix today for nutritional support, without electrolytes. Check labs in am. Prone if able. Continue precedx for anxiety. Very very guarded prognosis. Attempting our best to not intubate. 04/29/21: Continue precedex. Continue IV solumedrol. Prone if able. Guarded prognosis. 04/28/21: Continue Precedex. Picc team attempting to place line now. Stable on Bipap. Ordered steroids IV solumedrol to start today. Prognosis remains guarded, still at very high risk for intubation. 04/27/21: Hypotension improving/improved. Hold on any further lasix dosing. Continue precedex to help with anxeity. later today please attempt HFNC with NRB if needed. Attempt to feed if possible. Steroids end today, please order solumedrol 40q8 to start tomorrow (04/28/21). guarded prognosis. 04/26/21: Hypotension today, most likely from precedex use and diuresis that I did the last several days. Will bolus again today. Consider midodrine if BP does not respond. 04/25/21: Lasix again today. Keep PRN ativan for now. Hold on precedex for now. Guarded prognosis. Labs ordered for tomorrow. 04/24/21: Lasix today. Will also start patient on low dose PRN ativan. If this does not help will then try precedex. Guarded prognosis. 04/23/21: Prone as tolerated. No lasix today. Continue decadron. Guarded prognosis. High risk for intubation and high mortality with intubation. 04/19/21: Prone as tolerated during the day and sleep prone at night. Continue IV remdesivir and steroids. Did get actemra. Guarded prognosis. 1. Daily net negative state 2. Prone if possible 3. IV remdesivir. 4. Should be a candidate for Actemra 5. IV steroids 6. Guarded Prognosis Subjective Date of service: 06/06/21 Principal diagnosis: Covid-19 Interval history: No acute events. Down to 70% now. Objective Vital Signs - 12hr 06/05/21 06/05/21 06/05/21 22:00 22:32 23:32 Temperature 98.0 F Pulse Rate 87 Respiratory 20 Rate Blood Pressure 114/73 O2 Sat by Pulse 96 94 96 Oximetry 06/06/21 04:34 Temperature 98.0 F Pulse Rate 75 Respiratory 20 Rate Blood Pressure 110/60 O2 Sat by Pulse 96 Oximetry Constitutional: no acute distress, alert Eyes: non-icteric ENT: oropharynx moist Neck: supple Effort: normal Ascultation: Bilateral: diminished breath sounds Cardiovascular: regular rate and rhythm Gastrointestinal: normoactive bowel sounds, soft, non-tender, non-distended Integumentary: normal Extremities: no cyanosis, no edema, pink and warm Neurologic: normal mental status, non-focal exam, pupils equal and round, CN II- XII normal Psychiatric: mood appropriate, affect normal CBC and BMP: 06/02/21 05:34 06/05/21 05:26 ABG, PT/INR, D-dimer: ABG ABG pH 7.403 pH Units (7.350-7.450) 05/14/21 02:23 POC ABG pCO2 45.4 mmHg (32.0-48.0) 05/03/21 04:49 ABG pCO2 50.2 mm Hg 05/14/21 02:23 POC ABG pO2 65.3 mmHg (83-108) L 05/03/21 04:49 ABG pO2 130.3 mm Hg (80.0-90.0) H 05/14/21 02:23 POC ABG HCO3 18.5 05/03/21 04:49 ABG O2 Saturation 98.5 % (95.0-99.0) 05/14/21 02:23 PT/INR, D-dimer D-Dimer 488.49 ng/mlDDU (0-234) H 06/05/21 05:26 Abnormal lab findings: Abnormal Labs 04/16/21 04/16/21 04/16/21 11:42 11:42 11:42 WBC MCHC RDW 16.1 H Lymph % (Auto) 7.8 L Lymph # (Auto) 0.8 L Baso # (Auto) Seg Neutrophils % 87.7 H Seg Neuts % (Manual) Lymphocytes % (Manual) Seg Neutrophils # 8.5 H Seg Neutrophils # Man Lymphocytes # (Manual) D-Dimer 338.70 H ABG pH POC ABG pO2 ABG pO2 ABG HCO3 ABG O2 Saturation ABG Base Excess ABG Oxyhemoglobin ABG Sodium ABG Chloride ABG Glucose Oxyhemoglobin Carboxyhemoglobin Sodium Potassium Chloride Carbon Dioxide BUN Creatinine Glucose 194 H POC Glucose Hemoglobin A1c Ferritin AST ALT Alkaline Phosphatase Lactate Dehydrogenase C-Reactive Protein Total Protein 8.4 H Albumin 3.8 L Arterial Blood Glucose Coronavirus (PCR) 04/16/21 04/16/21 04/17/21 11:42 11:42 03:50 WBC MCHC RDW 16.0 H Lymph % (Auto) 7.7 L Lymph # (Auto) 0.6 L Baso # (Auto) Seg Neutrophils % 89.8 H Seg Neuts % (Manual) Lymphocytes % (Manual) Seg Neutrophils # Seg Neutrophils # Man Lymphocytes # (Manual) D-Dimer ABG pH POC ABG pO2 ABG pO2 ABG HCO3 ABG O2 Saturation ABG Base Excess ABG Oxyhemoglobin ABG Sodium ABG Chloride ABG Glucose Oxyhemoglobin Carboxyhemoglobin Sodium Potassium Chloride Carbon Dioxide BUN Creatinine Glucose 195 H POC Glucose Hemoglobin A1c Ferritin 254.3 H AST ALT Alkaline Phosphatase Lactate Dehydrogenase 359 H C-Reactive Protein 15.20 H Total Protein Albumin Arterial Blood Glucose Coronavirus (PCR) 04/17/21 04/17/21 04/17/21 03:50 08:26 08:26 WBC MCHC RDW Lymph % (Auto) Lymph # (Auto) Baso # (Auto) Seg Neutrophils % Seg Neuts % (Manual) Lymphocytes % (Manual) Seg Neutrophils # Seg Neutrophils # Man Lymphocytes # (Manual) D-Dimer 262.48 H ABG pH POC ABG pO2 ABG pO2 ABG HCO3 ABG O2 Saturation ABG Base Excess ABG Oxyhemoglobin ABG Sodium ABG Chloride ABG Glucose Oxyhemoglobin Carboxyhemoglobin Sodium Potassium Chloride Carbon Dioxide BUN 20 H Creatinine 0.5 L Glucose 249 H 225 H POC Glucose Hemoglobin A1c Ferritin AST ALT Alkaline Phosphatase Lactate Dehydrogenase 338 H C-Reactive Protein 17.20 H Total Protein Albumin 3.2 L Arterial Blood Glucose Coronavirus (PCR) 04/17/21 04/17/21 04/17/21 08:26 15:04 Unknown WBC MCHC RDW Lymph % (Auto) Lymph # (Auto) Baso # (Auto) Seg Neutrophils % Seg Neuts % (Manual) Lymphocytes % (Manual) Seg Neutrophils # Seg Neutrophils # Man Lymphocytes # (Manual) D-Dimer ABG pH POC ABG pO2 ABG pO2 ABG HCO3 ABG O2 Saturation ABG Base Excess ABG Oxyhemoglobin ABG Sodium ABG Chloride ABG Glucose Oxyhemoglobin Carboxyhemoglobin Sodium Potassium Chloride Carbon Dioxide BUN 20 H Creatinine 0.5 L Glucose 246 H POC Glucose Hemoglobin A1c Ferritin 392.0 H AST ALT Alkaline Phosphatase Lactate Dehydrogenase C-Reactive Protein Total Protein 8.3 H Albumin 3.1 L Arterial Blood Glucose Coronavirus (PCR) Positive A 04/18/21 04/18/21 04/18/21 05:06 05:06 07:36 WBC 11.6 H MCHC RDW 16.1 H Lymph % (Auto) Lymph # (Auto) Baso # (Auto) Seg Neutrophils % Seg Neuts % (Manual) Lymphocytes % (Manual) Seg Neutrophils # Seg Neutrophils # Man Lymphocytes # (Manual) D-Dimer ABG pH POC ABG pO2 ABG pO2 ABG HCO3 ABG O2 Saturation ABG Base Excess ABG Oxyhemoglobin ABG Sodium ABG Chloride ABG Glucose Oxyhemoglobin Carboxyhemoglobin Sodium Potassium 5.2 H Chloride Carbon Dioxide BUN 22 H Creatinine 0.5 L Glucose 315 H POC Glucose Hemoglobin A1c 8.5 H Ferritin AST ALT Alkaline Phosphatase Lactate Dehydrogenase C-Reactive Protein Total Protein Albumin 3.3 L Arterial Blood Glucose Coronavirus (PCR) 04/18/21 04/18/21 04/18/21 11:59 16:43 23:24 WBC MCHC RDW Lymph % (Auto) Lymph # (Auto) Baso # (Auto) Seg Neutrophils % Seg Neuts % (Manual) Lymphocytes % (Manual) Seg Neutrophils # Seg Neutrophils # Man Lymphocytes # (Manual) D-Dimer ABG pH POC ABG pO2 ABG pO2 ABG HCO3 ABG O2 Saturation ABG Base Excess ABG Oxyhemoglobin ABG Sodium ABG Chloride ABG Glucose Oxyhemoglobin Carboxyhemoglobin Sodium Potassium Chloride Carbon Dioxide BUN Creatinine Glucose POC Glucose 284 H 273 H 290 H Hemoglobin A1c Ferritin AST ALT Alkaline Phosphatase Lactate Dehydrogenase C-Reactive Protein Total Protein Albumin Arterial Blood Glucose Coronavirus (PCR) 04/19/21 04/19/21 04/19/21 04:19 04:19 08:10 WBC MCHC RDW 15.7 H Lymph % (Auto) Lymph # (Auto) Baso # (Auto) Seg Neutrophils % Seg Neuts % (Manual) Lymphocytes % (Manual) Seg Neutrophils # Seg Neutrophils # Man Lymphocytes # (Manual) D-Dimer ABG pH POC ABG pO2 ABG pO2 ABG HCO3 ABG O2 Saturation ABG Base Excess ABG Oxyhemoglobin ABG Sodium ABG Chloride ABG Glucose Oxyhemoglobin Carboxyhemoglobin Sodium Potassium Chloride Carbon Dioxide BUN 27 H Creatinine 0.4 L Glucose 184 H POC Glucose 194 H Hemoglobin A1c Ferritin AST ALT Alkaline Phosphatase Lactate Dehydrogenase C-Reactive Protein Total Protein Albumin 3.1 L Arterial Blood Glucose Coronavirus (PCR) 04/19/21 04/19/21 04/19/21 11:38 16:25 22:04 WBC MCHC RDW Lymph % (Auto) Lymph # (Auto) Baso # (Auto) Seg Neutrophils % Seg Neuts % (Manual) Lymphocytes % (Manual) Seg Neutrophils # Seg Neutrophils # Man Lymphocytes # (Manual) D-Dimer ABG pH POC ABG pO2 ABG pO2 ABG HCO3 ABG O2 Saturation ABG Base Excess ABG Oxyhemoglobin ABG Sodium ABG Chloride ABG Glucose Oxyhemoglobin Carboxyhemoglobin Sodium Potassium Chloride Carbon Dioxide BUN Creatinine Glucose POC Glucose 224 H 297 H 251 H Hemoglobin A1c Ferritin AST ALT Alkaline Phosphatase Lactate Dehydrogenase C-Reactive Protein Total Protein Albumin Arterial Blood Glucose Coronavirus (PCR) 04/20/21 04/20/21 04/20/21 05:28 08:43 16:21 WBC MCHC RDW Lymph % (Auto) Lymph # (Auto) Baso # (Auto) Seg Neutrophils % Seg Neuts % (Manual) Lymphocytes % (Manual) Seg Neutrophils # Seg Neutrophils # Man Lymphocytes # (Manual) D-Dimer ABG pH POC ABG pO2 ABG pO2 ABG HCO3 ABG O2 Saturation ABG Base Excess ABG Oxyhemoglobin ABG Sodium ABG Chloride ABG Glucose Oxyhemoglobin Carboxyhemoglobin Sodium Potassium Chloride Carbon Dioxide BUN 27 H Creatinine Glucose 192 H POC Glucose 173 H 253 H Hemoglobin A1c Ferritin AST ALT Alkaline Phosphatase Lactate Dehydrogenase C-Reactive Protein Total Protein Albumin 3.0 L Arterial Blood Glucose Coronavirus (PCR) 04/21/21 04/21/21 04/21/21 07:58 12:05 16:08 WBC MCHC RDW Lymph % (Auto) Lymph # (Auto) Baso # (Auto) Seg Neutrophils % Seg Neuts % (Manual) Lymphocytes % (Manual) Seg Neutrophils # Seg Neutrophils # Man Lymphocytes # (Manual) D-Dimer ABG pH POC ABG pO2 ABG pO2 ABG HCO3 ABG O2 Saturation ABG Base Excess ABG Oxyhemoglobin ABG Sodium ABG Chloride ABG Glucose Oxyhemoglobin Carboxyhemoglobin Sodium Potassium Chloride Carbon Dioxide BUN Creatinine Glucose POC Glucose 140 H 252 H 214 H Hemoglobin A1c Ferritin AST ALT Alkaline Phosphatase Lactate Dehydrogenase C-Reactive Protein Total Protein Albumin Arterial Blood Glucose Coronavirus (PCR) 04/21/21 04/22/21 04/22/21 21:42 08:37 12:01 WBC MCHC RDW Lymph % (Auto) Lymph # (Auto) Baso # (Auto) Seg Neutrophils % Seg Neuts % (Manual) Lymphocytes % (Manual) Seg Neutrophils # Seg Neutrophils # Man Lymphocytes # (Manual) D-Dimer ABG pH 7.457 H POC ABG pO2 49.4 L ABG pO2 ABG HCO3 ABG O2 Saturation ABG Base Excess ABG Oxyhemoglobin 85.6 L ABG Sodium ABG Chloride ABG Glucose 121 H Oxyhemoglobin Carboxyhemoglobin 0.3 L Sodium Potassium Chloride Carbon Dioxide BUN Creatinine Glucose POC Glucose 162 H 227 H Hemoglobin A1c Ferritin AST ALT Alkaline Phosphatase Lactate Dehydrogenase C-Reactive Protein Total Protein Albumin Arterial Blood Glucose 121 H Coronavirus (PCR) 04/22/21 04/22/21 04/23/21 16:26 22:23 04:52 WBC MCHC RDW 15.7 H Lymph % (Auto) Lymph # (Auto) Baso # (Auto) Seg Neutrophils % Seg Neuts % (Manual) Lymphocytes % (Manual) Seg Neutrophils # Seg Neutrophils # Man Lymphocytes # (Manual) D-Dimer ABG pH POC ABG pO2 ABG pO2 ABG HCO3 ABG O2 Saturation ABG Base Excess ABG Oxyhemoglobin ABG Sodium ABG Chloride ABG Glucose Oxyhemoglobin Carboxyhemoglobin Sodium Potassium Chloride Carbon Dioxide BUN Creatinine Glucose POC Glucose 200 H 136 H Hemoglobin A1c Ferritin AST ALT Alkaline Phosphatase Lactate Dehydrogenase C-Reactive Protein Total Protein Albumin Arterial Blood Glucose Coronavirus (PCR) 04/23/21 04/23/21 04/23/21 04:52 12:06 17:41 WBC MCHC RDW Lymph % (Auto) Lymph # (Auto) Baso # (Auto) Seg Neutrophils % Seg Neuts % (Manual) Lymphocytes % (Manual) Seg Neutrophils # Seg Neutrophils # Man Lymphocytes # (Manual) D-Dimer ABG pH POC ABG pO2 ABG pO2 ABG HCO3 ABG O2 Saturation ABG Base Excess ABG Oxyhemoglobin ABG Sodium ABG Chloride ABG Glucose Oxyhemoglobin Carboxyhemoglobin Sodium 136 L Potassium Chloride 97.7 L Carbon Dioxide BUN 23 H Creatinine Glucose 101 H POC Glucose 202 H 169 H Hemoglobin A1c Ferritin AST 46 H ALT Alkaline Phosphatase Lactate Dehydrogenase C-Reactive Protein Total Protein Albumin 3.3 L Arterial Blood Glucose Coronavirus (PCR) 04/23/21 04/24/21 04/24/21 23:08 05:17 08:38 WBC MCHC RDW Lymph % (Auto) Lymph # (Auto) Baso # (Auto) Seg Neutrophils % Seg Neuts % (Manual) Lymphocytes % (Manual) Seg Neutrophils # Seg Neutrophils # Man Lymphocytes # (Manual) D-Dimer ABG pH POC ABG pO2 ABG pO2 ABG HCO3 ABG O2 Saturation ABG Base Excess ABG Oxyhemoglobin ABG Sodium ABG Chloride ABG Glucose Oxyhemoglobin Carboxyhemoglobin Sodium Potassium Chloride Carbon Dioxide BUN Creatinine Glucose POC Glucose 111 H 108 H 126 H Hemoglobin A1c Ferritin AST ALT Alkaline Phosphatase Lactate Dehydrogenase C-Reactive Protein Total Protein Albumin Arterial Blood Glucose Coronavirus (PCR) 04/24/21 04/24/21 04/24/21 11:54 17:57 21:23 WBC MCHC RDW Lymph % (Auto) Lymph # (Auto) Baso # (Auto) Seg Neutrophils % Seg Neuts % (Manual) Lymphocytes % (Manual) Seg Neutrophils # Seg Neutrophils # Man Lymphocytes # (Manual) D-Dimer ABG pH POC ABG pO2 ABG pO2 ABG HCO3 ABG O2 Saturation ABG Base Excess ABG Oxyhemoglobin ABG Sodium ABG Chloride ABG Glucose Oxyhemoglobin Carboxyhemoglobin Sodium Potassium Chloride Carbon Dioxide BUN Creatinine Glucose POC Glucose 147 H 177 H 138 H Hemoglobin A1c Ferritin AST ALT Alkaline Phosphatase Lactate Dehydrogenase C-Reactive Protein Total Protein Albumin Arterial Blood Glucose Coronavirus (PCR) 04/25/21 04/25/21 04/25/21 07:06 11:23 15:43 WBC MCHC RDW Lymph % (Auto) Lymph # (Auto) Baso # (Auto) Seg Neutrophils % Seg Neuts % (Manual) Lymphocytes % (Manual) Seg Neutrophils # Seg Neutrophils # Man Lymphocytes # (Manual) D-Dimer ABG pH POC ABG pO2 ABG pO2 ABG HCO3 ABG O2 Saturation ABG Base Excess ABG Oxyhemoglobin ABG Sodium ABG Chloride ABG Glucose Oxyhemoglobin Carboxyhemoglobin Sodium Potassium Chloride Carbon Dioxide BUN Creatinine Glucose POC Glucose 147 H 169 H 227 H Hemoglobin A1c Ferritin AST ALT Alkaline Phosphatase Lactate Dehydrogenase C-Reactive Protein Total Protein Albumin Arterial Blood Glucose Coronavirus (PCR) 04/25/21 04/26/21 04/26/21 21:22 02:45 05:15 WBC MCHC RDW Lymph % (Auto) Lymph # (Auto) Baso # (Auto) Seg Neutrophils % Seg Neuts % (Manual) Lymphocytes % (Manual) Seg Neutrophils # Seg Neutrophils # Man Lymphocytes # (Manual) D-Dimer ABG pH POC ABG pO2 70.7 L ABG pO2 ABG HCO3 ABG O2 Saturation ABG Base Excess ABG Oxyhemoglobin 93.0 L ABG Sodium 132.7 L ABG Chloride ABG Glucose 115 H Oxyhemoglobin Carboxyhemoglobin Sodium Potassium Chloride 95.8 L Carbon Dioxide 32 H BUN 20 H Creatinine Glucose 102 H POC Glucose 196 H Hemoglobin A1c Ferritin AST ALT Alkaline Phosphatase Lactate Dehydrogenase C-Reactive Protein Total Protein Albumin Arterial Blood Glucose 115 H Coronavirus (PCR) 04/26/21 04/26/21 04/26/21 11:49 16:09 21:07 WBC MCHC RDW Lymph % (Auto) Lymph # (Auto) Baso # (Auto) Seg Neutrophils % Seg Neuts % (Manual) Lymphocytes % (Manual) Seg Neutrophils # Seg Neutrophils # Man Lymphocytes # (Manual) D-Dimer ABG pH POC ABG pO2 ABG pO2 ABG HCO3 ABG O2 Saturation ABG Base Excess ABG Oxyhemoglobin ABG Sodium ABG Chloride ABG Glucose Oxyhemoglobin Carboxyhemoglobin Sodium Potassium Chloride Carbon Dioxide BUN Creatinine Glucose POC Glucose 114 H 188 H 136 H Hemoglobin A1c Ferritin AST ALT Alkaline Phosphatase Lactate Dehydrogenase C-Reactive Protein Total Protein Albumin Arterial Blood Glucose Coronavirus (PCR) 04/27/21 04/27/21 04/28/21 17:34 22:12 08:26 WBC MCHC RDW Lymph % (Auto) Lymph # (Auto) Baso # (Auto) Seg Neutrophils % Seg Neuts % (Manual) Lymphocytes % (Manual) Seg Neutrophils # Seg Neutrophils # Man Lymphocytes # (Manual) D-Dimer ABG pH POC ABG pO2 ABG pO2 ABG HCO3 ABG O2 Saturation ABG Base Excess ABG Oxyhemoglobin ABG Sodium ABG Chloride ABG Glucose Oxyhemoglobin Carboxyhemoglobin Sodium Potassium Chloride Carbon Dioxide BUN Creatinine Glucose POC Glucose 128 H 159 H 69 L Hemoglobin A1c Ferritin AST ALT Alkaline Phosphatase Lactate Dehydrogenase C-Reactive Protein Total Protein Albumin Arterial Blood Glucose Coronavirus (PCR) 04/28/21 04/28/21 04/29/21 12:22 21:11 06:05 WBC MCHC RDW Lymph % (Auto) Lymph # (Auto) Baso # (Auto) Seg Neutrophils % Seg Neuts % (Manual) Lymphocytes % (Manual) Seg Neutrophils # Seg Neutrophils # Man Lymphocytes # (Manual) D-Dimer ABG pH POC ABG pO2 ABG pO2 ABG HCO3 ABG O2 Saturation ABG Base Excess ABG Oxyhemoglobin ABG Sodium ABG Chloride ABG Glucose Oxyhemoglobin Carboxyhemoglobin Sodium 132 L Potassium Chloride 94.4 L Carbon Dioxide BUN Creatinine 0.2 L D Glucose 140 H POC Glucose 141 H 171 H Hemoglobin A1c Ferritin AST ALT Alkaline Phosphatase Lactate Dehydrogenase C-Reactive Protein Total Protein Albumin Arterial Blood Glucose Coronavirus (PCR) 04/29/21 04/29/21 04/29/21 06:05 07:24 11:36 WBC MCHC 35 H RDW 15.9 H Lymph % (Auto) Lymph # (Auto) Baso # (Auto) Seg Neutrophils % Seg Neuts % (Manual) Lymphocytes % (Manual) Seg Neutrophils # Seg Neutrophils # Man Lymphocytes # (Manual) D-Dimer ABG pH POC ABG pO2 ABG pO2 ABG HCO3 ABG O2 Saturation ABG Base Excess ABG Oxyhemoglobin ABG Sodium ABG Chloride ABG Glucose Oxyhemoglobin Carboxyhemoglobin Sodium Potassium Chloride Carbon Dioxide BUN Creatinine Glucose POC Glucose 141 H 220 H Hemoglobin A1c Ferritin AST ALT Alkaline Phosphatase Lactate Dehydrogenase C-Reactive Protein Total Protein Albumin Arterial Blood Glucose Coronavirus (PCR) 04/29/21 04/29/21 04/29/21 14:23 15:30 17:06 WBC MCHC RDW Lymph % (Auto) Lymph # (Auto) Baso # (Auto) Seg Neutrophils % Seg Neuts % (Manual) Lymphocytes % (Manual) Seg Neutrophils # Seg Neutrophils # Man Lymphocytes # (Manual) D-Dimer ABG pH POC ABG pO2 ABG pO2 52.6 L ABG HCO3 ABG O2 Saturation 86.4 L ABG Base Excess ABG Oxyhemoglobin ABG Sodium ABG Chloride ABG Glucose Oxyhemoglobin 84.6 L Carboxyhemoglobin Sodium Potassium Chloride Carbon Dioxide BUN Creatinine Glucose POC Glucose 173 H 158 H Hemoglobin A1c Ferritin AST ALT Alkaline Phosphatase Lactate Dehydrogenase C-Reactive Protein Total Protein Albumin Arterial Blood Glucose Coronavirus (PCR) 04/29/21 04/30/21 04/30/21 21:27 07:16 08:00 WBC MCHC RDW 16.1 H Lymph % (Auto) Lymph # (Auto) Baso # (Auto) Seg Neutrophils % Seg Neuts % (Manual) Lymphocytes % (Manual) Seg Neutrophils # Seg Neutrophils # Man Lymphocytes # (Manual) D-Dimer ABG pH POC ABG pO2 ABG pO2 ABG HCO3 ABG O2 Saturation ABG Base Excess ABG Oxyhemoglobin ABG Sodium ABG Chloride ABG Glucose Oxyhemoglobin Carboxyhemoglobin Sodium Potassium Chloride Carbon Dioxide BUN Creatinine Glucose POC Glucose 244 H 175 H Hemoglobin A1c Ferritin AST ALT Alkaline Phosphatase Lactate Dehydrogenase C-Reactive Protein Total Protein Albumin Arterial Blood Glucose Coronavirus (PCR) 04/30/21 04/30/21 04/30/21 08:00 08:00 11:03 WBC MCHC RDW Lymph % (Auto) Lymph # (Auto) Baso # (Auto) Seg Neutrophils % Seg Neuts % (Manual) Lymphocytes % (Manual) Seg Neutrophils # Seg Neutrophils # Man Lymphocytes # (Manual) D-Dimer 1796.87 H ABG pH POC ABG pO2 ABG pO2 ABG HCO3 ABG O2 Saturation ABG Base Excess ABG Oxyhemoglobin ABG Sodium ABG Chloride ABG Glucose Oxyhemoglobin Carboxyhemoglobin Sodium 135 L Potassium Chloride 96.3 L Carbon Dioxide BUN Creatinine 0.2 L Glucose 153 H POC Glucose 183 H Hemoglobin A1c Ferritin AST 41 H ALT 76 H Alkaline Phosphatase 160 H Lactate Dehydrogenase 522 H C-Reactive Protein Total Protein 6.1 L Albumin 3.1 L Arterial Blood Glucose Coronavirus (PCR) 04/30/21 04/30/21 05/01/21 17:04 22:17 05:39 WBC MCHC RDW Lymph % (Auto) Lymph # (Auto) Baso # (Auto) Seg Neutrophils % Seg Neuts % (Manual) Lymphocytes % (Manual) Seg Neutrophils # Seg Neutrophils # Man Lymphocytes # (Manual) D-Dimer ABG pH POC ABG pO2 ABG pO2 ABG HCO3 ABG O2 Saturation ABG Base Excess ABG Oxyhemoglobin ABG Sodium ABG Chloride ABG Glucose Oxyhemoglobin Carboxyhemoglobin Sodium 133 L Potassium Chloride 92.1 L Carbon Dioxide BUN 24 H Creatinine 0.4 L D Glucose 269 H POC Glucose 167 H 208 H Hemoglobin A1c Ferritin AST ALT 66 H Alkaline Phosphatase 142 H Lactate Dehydrogenase C-Reactive Protein Total Protein Albumin 3.2 L Arterial Blood Glucose Coronavirus (PCR) 05/01/21 05/01/21 05/01/21 05:39 05:39 07:45 WBC MCHC RDW 16.0 H Lymph % (Auto) Lymph # (Auto) Baso # (Auto) Seg Neutrophils % Seg Neuts % (Manual) Lymphocytes % (Manual) Seg Neutrophils # Seg Neutrophils # Man Lymphocytes # (Manual) D-Dimer 3984.95 H ABG pH POC ABG pO2 ABG pO2 ABG HCO3 ABG O2 Saturation ABG Base Excess ABG Oxyhemoglobin ABG Sodium ABG Chloride ABG Glucose Oxyhemoglobin Carboxyhemoglobin Sodium Potassium Chloride Carbon Dioxide BUN Creatinine Glucose POC Glucose 229 H Hemoglobin A1c Ferritin AST ALT Alkaline Phosphatase Lactate Dehydrogenase C-Reactive Protein Total Protein Albumin Arterial Blood Glucose Coronavirus (PCR) 05/01/21 05/01/21 05/01/21 12:10 15:46 21:06 WBC MCHC RDW Lymph % (Auto) Lymph # (Auto) Baso # (Auto) Seg Neutrophils % Seg Neuts % (Manual) Lymphocytes % (Manual) Seg Neutrophils # Seg Neutrophils # Man Lymphocytes # (Manual) D-Dimer ABG pH POC ABG pO2 ABG pO2 ABG HCO3 ABG O2 Saturation ABG Base Excess ABG Oxyhemoglobin ABG Sodium ABG Chloride ABG Glucose Oxyhemoglobin Carboxyhemoglobin Sodium Potassium Chloride Carbon Dioxide BUN Creatinine Glucose POC Glucose 296 H 279 H 232 H Hemoglobin A1c Ferritin AST ALT Alkaline Phosphatase Lactate Dehydrogenase C-Reactive Protein Total Protein Albumin Arterial Blood Glucose Coronavirus (PCR) 05/02/21 05/02/21 05/02/21 04:55 04:55 04:55 WBC MCHC RDW 16.1 H Lymph % (Auto) Lymph # (Auto) Baso # (Auto) Seg Neutrophils % Seg Neuts % (Manual) Lymphocytes % (Manual) Seg Neutrophils # Seg Neutrophils # Man Lymphocytes # (Manual) D-Dimer 1401.08 H ABG pH POC ABG pO2 ABG pO2 ABG HCO3 ABG O2 Saturation ABG Base Excess ABG Oxyhemoglobin ABG Sodium ABG Chloride ABG Glucose Oxyhemoglobin Carboxyhemoglobin Sodium 131 L Potassium Chloride 95.5 L Carbon Dioxide BUN 20 H Creatinine 0.3 L Glucose 288 H POC Glucose Hemoglobin A1c Ferritin AST ALT Alkaline Phosphatase Lactate Dehydrogenase C-Reactive Protein Total Protein 6.0 L Albumin 3.1 L Arterial Blood Glucose Coronavirus (PCR) 05/02/21 05/02/21 05/02/21 07:53 11:45 15:25 WBC MCHC RDW Lymph % (Auto) Lymph # (Auto) Baso # (Auto) Seg Neutrophils % Seg Neuts % (Manual) Lymphocytes % (Manual) Seg Neutrophils # Seg Neutrophils # Man Lymphocytes # (Manual) D-Dimer ABG pH POC ABG pO2 ABG pO2 ABG HCO3 ABG O2 Saturation ABG Base Excess ABG Oxyhemoglobin ABG Sodium ABG Chloride ABG Glucose Oxyhemoglobin Carboxyhemoglobin Sodium Potassium Chloride Carbon Dioxide BUN Creatinine Glucose POC Glucose 180 H 228 H 275 H Hemoglobin A1c Ferritin AST ALT Alkaline Phosphatase Lactate Dehydrogenase C-Reactive Protein Total Protein Albumin Arterial Blood Glucose Coronavirus (PCR) 05/02/21 05/03/21 05/03/21 22:56 04:30 04:49 WBC MCHC RDW Lymph % (Auto) Lymph # (Auto) Baso # (Auto) Seg Neutrophils % Seg Neuts % (Manual) Lymphocytes % (Manual) Seg Neutrophils # Seg Neutrophils # Man Lymphocytes # (Manual) D-Dimer ABG pH 7.229 L POC ABG pO2 65.3 L ABG pO2 ABG HCO3 ABG O2 Saturation ABG Base Excess ABG Oxyhemoglobin 87.8 L ABG Sodium 133.0 L ABG Chloride 97.0 L ABG Glucose 403 H Oxyhemoglobin Carboxyhemoglobin Sodium 130 L Potassium Chloride 94.9 L Carbon Dioxide BUN 20 H Creatinine 0.5 L D Glucose 359 H POC Glucose 293 H Hemoglobin A1c Ferritin AST 54 H ALT 75 H Alkaline Phosphatase 138 H Lactate Dehydrogenase C-Reactive Protein Total Protein Albumin 3.6 L Arterial Blood Glucose 403 H Coronavirus (PCR) 05/03/21 05/03/21 05/03/21 05:27 11:26 17:57 WBC MCHC RDW Lymph % (Auto) Lymph # (Auto) Baso # (Auto) Seg Neutrophils % Seg Neuts % (Manual) Lymphocytes % (Manual) Seg Neutrophils # Seg Neutrophils # Man Lymphocytes # (Manual) D-Dimer ABG pH POC ABG pO2 ABG pO2 ABG HCO3 ABG O2 Saturation ABG Base Excess ABG Oxyhemoglobin ABG Sodium ABG Chloride ABG Glucose Oxyhemoglobin Carboxyhemoglobin Sodium Potassium Chloride Carbon Dioxide BUN Creatinine Glucose POC Glucose 361 H 297 H 226 H Hemoglobin A1c Ferritin AST ALT Alkaline Phosphatase Lactate Dehydrogenase C-Reactive Protein Total Protein Albumin Arterial Blood Glucose Coronavirus (PCR) 05/03/21 05/04/21 05/04/21 23:12 05:12 07:30 WBC MCHC RDW Lymph % (Auto) Lymph # (Auto) Baso # (Auto) Seg Neutrophils % Seg Neuts % (Manual) Lymphocytes % (Manual) Seg Neutrophils # Seg Neutrophils # Man Lymphocytes # (Manual) D-Dimer ABG pH POC ABG pO2 ABG pO2 ABG HCO3 ABG O2 Saturation ABG Base Excess ABG Oxyhemoglobin ABG Sodium ABG Chloride ABG Glucose Oxyhemoglobin Carboxyhemoglobin Sodium Potassium Chloride Carbon Dioxide BUN Creatinine Glucose POC Glucose 282 H 285 H 254 H Hemoglobin A1c Ferritin AST ALT Alkaline Phosphatase Lactate Dehydrogenase C-Reactive Protein Total Protein Albumin Arterial Blood Glucose Coronavirus (PCR) 05/04/21 05/04/21 05/04/21 08:58 11:45 16:07 WBC MCHC RDW Lymph % (Auto) Lymph # (Auto) Baso # (Auto) Seg Neutrophils % Seg Neuts % (Manual) Lymphocytes % (Manual) Seg Neutrophils # Seg Neutrophils # Man Lymphocytes # (Manual) D-Dimer ABG pH POC ABG pO2 ABG pO2 ABG HCO3 ABG O2 Saturation ABG Base Excess ABG Oxyhemoglobin ABG Sodium ABG Chloride ABG Glucose Oxyhemoglobin Carboxyhemoglobin Sodium 134 L Potassium Chloride Carbon Dioxide BUN 20 H Creatinine 0.3 L Glucose 267 H POC Glucose 244 H 297 H Hemoglobin A1c Ferritin AST ALT Alkaline Phosphatase Lactate Dehydrogenase C-Reactive Protein Total Protein 6.0 L Albumin 3.2 L Arterial Blood Glucose Coronavirus (PCR) 05/04/21 05/05/21 05/05/21 23:32 05:00 05:13 WBC MCHC RDW Lymph % (Auto) Lymph # (Auto) Baso # (Auto) Seg Neutrophils % Seg Neuts % (Manual) Lymphocytes % (Manual) Seg Neutrophils # Seg Neutrophils # Man Lymphocytes # (Manual) D-Dimer ABG pH POC ABG pO2 ABG pO2 ABG HCO3 ABG O2 Saturation ABG Base Excess ABG Oxyhemoglobin ABG Sodium ABG Chloride ABG Glucose Oxyhemoglobin Carboxyhemoglobin Sodium 132 L Potassium Chloride 96.4 L Carbon Dioxide BUN 22 H Creatinine 0.3 L Glucose 228 H POC Glucose 154 H 260 H Hemoglobin A1c Ferritin AST ALT 67 H Alkaline Phosphatase Lactate Dehydrogenase C-Reactive Protein Total Protein 6.1 L Albumin 3.2 L Arterial Blood Glucose Coronavirus (PCR) 05/05/21 05/05/21 05/05/21 11:32 17:49 23:07 WBC MCHC RDW Lymph % (Auto) Lymph # (Auto) Baso # (Auto) Seg Neutrophils % Seg Neuts % (Manual) Lymphocytes % (Manual) Seg Neutrophils # Seg Neutrophils # Man Lymphocytes # (Manual) D-Dimer ABG pH POC ABG pO2 ABG pO2 ABG HCO3 ABG O2 Saturation ABG Base Excess ABG Oxyhemoglobin ABG Sodium ABG Chloride ABG Glucose Oxyhemoglobin Carboxyhemoglobin Sodium Potassium Chloride Carbon Dioxide BUN Creatinine Glucose POC Glucose 279 H 308 H 213 H Hemoglobin A1c Ferritin AST ALT Alkaline Phosphatase Lactate Dehydrogenase C-Reactive Protein Total Protein Albumin Arterial Blood Glucose Coronavirus (PCR) 05/06/21 05/06/21 05/06/21 05:00 05:00 05:20 WBC MCHC RDW 16.8 H Lymph % (Auto) Lymph # (Auto) Baso # (Auto) Seg Neutrophils % Seg Neuts % (Manual) 99.0 H Lymphocytes % (Manual) Seg Neutrophils # Seg Neutrophils # Man 10.9 H Lymphocytes # (Manual) 0.0 L D-Dimer ABG pH POC ABG pO2 ABG pO2 ABG HCO3 ABG O2 Saturation ABG Base Excess ABG Oxyhemoglobin ABG Sodium ABG Chloride ABG Glucose Oxyhemoglobin Carboxyhemoglobin Sodium 133 L Potassium Chloride Carbon Dioxide BUN 21 H Creatinine 0.3 L Glucose 259 H POC Glucose 308 H Hemoglobin A1c Ferritin AST ALT Alkaline Phosphatase Lactate Dehydrogenase C-Reactive Protein Total Protein Albumin 3.2 L Arterial Blood Glucose Coronavirus (PCR) 05/06/21 05/06/21 05/06/21 11:24 17:54 21:32 WBC MCHC RDW Lymph % (Auto) Lymph # (Auto) Baso # (Auto) Seg Neutrophils % Seg Neuts % (Manual) Lymphocytes % (Manual) Seg Neutrophils # Seg Neutrophils # Man Lymphocytes # (Manual) D-Dimer ABG pH POC ABG pO2 ABG pO2 ABG HCO3 ABG O2 Saturation ABG Base Excess ABG Oxyhemoglobin ABG Sodium ABG Chloride ABG Glucose Oxyhemoglobin Carboxyhemoglobin Sodium Potassium Chloride Carbon Dioxide BUN Creatinine Glucose POC Glucose 262 H 124 H 246 H Hemoglobin A1c Ferritin AST ALT Alkaline Phosphatase Lactate Dehydrogenase C-Reactive Protein Total Protein Albumin Arterial Blood Glucose Coronavirus (PCR) 05/06/21 05/07/21 05/07/21 23:10 04:54 04:54 WBC MCHC RDW Lymph % (Auto) Lymph # (Auto) Baso # (Auto) Seg Neutrophils % Seg Neuts % (Manual) Lymphocytes % (Manual) Seg Neutrophils # Seg Neutrophils # Man Lymphocytes # (Manual) D-Dimer 1609.28 H ABG pH POC ABG pO2 ABG pO2 ABG HCO3 ABG O2 Saturation ABG Base Excess ABG Oxyhemoglobin ABG Sodium ABG Chloride ABG Glucose Oxyhemoglobin Carboxyhemoglobin Sodium 136 L Potassium Chloride Carbon Dioxide BUN 23 H Creatinine 0.3 L Glucose 110 H POC Glucose 249 H Hemoglobin A1c Ferritin AST ALT Alkaline Phosphatase Lactate Dehydrogenase C-Reactive Protein Total Protein 6.2 L Albumin 3.0 L Arterial Blood Glucose Coronavirus (PCR) 05/07/21 05/07/21 05/07/21 04:54 04:54 11:41 WBC MCHC RDW Lymph % (Auto) Lymph # (Auto) Baso # (Auto) Seg Neutrophils % Seg Neuts % (Manual) Lymphocytes % (Manual) Seg Neutrophils # Seg Neutrophils # Man Lymphocytes # (Manual) D-Dimer ABG pH POC ABG pO2 ABG pO2 ABG HCO3 ABG O2 Saturation ABG Base Excess ABG Oxyhemoglobin ABG Sodium ABG Chloride ABG Glucose Oxyhemoglobin Carboxyhemoglobin Sodium Potassium Chloride Carbon Dioxide BUN Creatinine Glucose POC Glucose 118 H Hemoglobin A1c Ferritin 296.1 H AST ALT Alkaline Phosphatase Lactate Dehydrogenase 724 H C-Reactive Protein Total Protein Albumin Arterial Blood Glucose Coronavirus (PCR) 05/07/21 05/07/21 05/08/21 16:43 22:34 06:44 WBC MCHC RDW Lymph % (Auto) Lymph # (Auto) Baso # (Auto) Seg Neutrophils % Seg Neuts % (Manual) Lymphocytes % (Manual) Seg Neutrophils # Seg Neutrophils # Man Lymphocytes # (Manual) D-Dimer ABG pH POC ABG pO2 ABG pO2 ABG HCO3 ABG O2 Saturation ABG Base Excess ABG Oxyhemoglobin ABG Sodium ABG Chloride ABG Glucose Oxyhemoglobin Carboxyhemoglobin Sodium Potassium Chloride Carbon Dioxide BUN Creatinine Glucose POC Glucose 159 H 233 H 235 H Hemoglobin A1c Ferritin AST ALT Alkaline Phosphatase Lactate Dehydrogenase C-Reactive Protein Total Protein Albumin Arterial Blood Glucose Coronavirus (PCR) 05/08/21 05/08/21 05/08/21 07:49 11:56 17:13 WBC MCHC RDW Lymph % (Auto) Lymph # (Auto) Baso # (Auto) Seg Neutrophils % Seg Neuts % (Manual) Lymphocytes % (Manual) Seg Neutrophils # Seg Neutrophils # Man Lymphocytes # (Manual) D-Dimer ABG pH POC ABG pO2 ABG pO2 ABG HCO3 ABG O2 Saturation ABG Base Excess ABG Oxyhemoglobin ABG Sodium ABG Chloride ABG Glucose Oxyhemoglobin Carboxyhemoglobin Sodium Potassium Chloride Carbon Dioxide BUN Creatinine Glucose POC Glucose 219 H 184 H 182 H Hemoglobin A1c Ferritin AST ALT Alkaline Phosphatase Lactate Dehydrogenase C-Reactive Protein Total Protein Albumin Arterial Blood Glucose Coronavirus (PCR) 05/08/21 05/09/21 05/09/21 23:35 05:20 05:20 WBC MCHC RDW Lymph % (Auto) Lymph # (Auto) Baso # (Auto) Seg Neutrophils % Seg Neuts % (Manual) Lymphocytes % (Manual) Seg Neutrophils # Seg Neutrophils # Man Lymphocytes # (Manual) D-Dimer 1003.87 H ABG pH POC ABG pO2 ABG pO2 ABG HCO3 ABG O2 Saturation ABG Base Excess ABG Oxyhemoglobin ABG Sodium ABG Chloride ABG Glucose Oxyhemoglobin Carboxyhemoglobin Sodium Potassium Chloride Carbon Dioxide BUN Creatinine Glucose POC Glucose 198 H Hemoglobin A1c Ferritin 378.7 H AST ALT Alkaline Phosphatase Lactate Dehydrogenase C-Reactive Protein Total Protein Albumin Arterial Blood Glucose Coronavirus (PCR) 05/09/21 05/09/21 05/09/21 05:20 06:04 12:53 WBC MCHC RDW Lymph % (Auto) Lymph # (Auto) Baso # (Auto) Seg Neutrophils % Seg Neuts % (Manual) Lymphocytes % (Manual) Seg Neutrophils # Seg Neutrophils # Man Lymphocytes # (Manual) D-Dimer ABG pH POC ABG pO2 ABG pO2 ABG HCO3 ABG O2 Saturation ABG Base Excess ABG Oxyhemoglobin ABG Sodium ABG Chloride ABG Glucose Oxyhemoglobin Carboxyhemoglobin Sodium Potassium Chloride Carbon Dioxide BUN Creatinine Glucose POC Glucose 159 H 180 H Hemoglobin A1c Ferritin AST ALT Alkaline Phosphatase Lactate Dehydrogenase 558 H C-Reactive Protein 2.40 H Total Protein Albumin Arterial Blood Glucose Coronavirus (PCR) 05/09/21 05/09/21 05/10/21 16:43 21:27 10:18 WBC MCHC RDW Lymph % (Auto) Lymph # (Auto) Baso # (Auto) Seg Neutrophils % Seg Neuts % (Manual) Lymphocytes % (Manual) Seg Neutrophils # Seg Neutrophils # Man Lymphocytes # (Manual) D-Dimer ABG pH POC ABG pO2 ABG pO2 ABG HCO3 ABG O2 Saturation ABG Base Excess ABG Oxyhemoglobin ABG Sodium ABG Chloride ABG Glucose Oxyhemoglobin Carboxyhemoglobin Sodium Potassium Chloride Carbon Dioxide BUN Creatinine Glucose POC Glucose 212 H 285 H 261 H Hemoglobin A1c Ferritin AST ALT Alkaline Phosphatase Lactate Dehydrogenase C-Reactive Protein Total Protein Albumin Arterial Blood Glucose Coronavirus (PCR) 05/10/21 05/10/21 05/11/21 17:58 18:02 00:29 WBC MCHC RDW Lymph % (Auto) Lymph # (Auto) Baso # (Auto) Seg Neutrophils % Seg Neuts % (Manual) Lymphocytes % (Manual) Seg Neutrophils # Seg Neutrophils # Man Lymphocytes # (Manual) D-Dimer ABG pH POC ABG pO2 ABG pO2 ABG HCO3 ABG O2 Saturation ABG Base Excess ABG Oxyhemoglobin ABG Sodium ABG Chloride ABG Glucose Oxyhemoglobin Carboxyhemoglobin Sodium Potassium Chloride Carbon Dioxide BUN Creatinine Glucose POC Glucose 213 H 179 H 149 H Hemoglobin A1c Ferritin AST ALT Alkaline Phosphatase Lactate Dehydrogenase C-Reactive Protein Total Protein Albumin Arterial Blood Glucose Coronavirus (PCR) 05/11/21 05/11/21 05/11/21 05:22 11:32 17:00 WBC 14.9 H MCHC RDW 18.9 H Lymph % (Auto) 4.9 L Lymph # (Auto) 0.7 L Baso # (Auto) 0.2 H Seg Neutrophils % Seg Neuts % (Manual) Lymphocytes % (Manual) Seg Neutrophils # 13.3 H Seg Neutrophils # Man Lymphocytes # (Manual) D-Dimer ABG pH POC ABG pO2 ABG pO2 ABG HCO3 ABG O2 Saturation ABG Base Excess ABG Oxyhemoglobin ABG Sodium ABG Chloride ABG Glucose Oxyhemoglobin Carboxyhemoglobin Sodium Potassium Chloride Carbon Dioxide BUN Creatinine Glucose POC Glucose 162 H 179 H Hemoglobin A1c Ferritin AST ALT Alkaline Phosphatase Lactate Dehydrogenase C-Reactive Protein Total Protein Albumin Arterial Blood Glucose Coronavirus (PCR) 05/11/21 05/11/21 05/11/21 17:00 17:33 22:03 WBC MCHC RDW Lymph % (Auto) Lymph # (Auto) Baso # (Auto) Seg Neutrophils % Seg Neuts % (Manual) Lymphocytes % (Manual) Seg Neutrophils # Seg Neutrophils # Man Lymphocytes # (Manual) D-Dimer ABG pH POC ABG pO2 ABG pO2 ABG HCO3 ABG O2 Saturation ABG Base Excess ABG Oxyhemoglobin ABG Sodium ABG Chloride ABG Glucose Oxyhemoglobin Carboxyhemoglobin Sodium 135 L Potassium Chloride 97.3 L Carbon Dioxide BUN 21 H Creatinine 0.3 L Glucose 133 H POC Glucose 140 H 282 H Hemoglobin A1c Ferritin AST ALT 60 H Alkaline Phosphatase Lactate Dehydrogenase C-Reactive Protein Total Protein Albumin 3.1 L Arterial Blood Glucose Coronavirus (PCR) 05/12/21 05/12/21 05/12/21 04:05 04:05 04:05 WBC MCHC RDW 18.4 H Lymph % (Auto) Lymph # (Auto) Baso # (Auto) Seg Neutrophils % Seg Neuts % (Manual) 94.0 H Lymphocytes % (Manual) 4.0 L Seg Neutrophils # Seg Neutrophils # Man Lymphocytes # (Manual) 0.3 L D-Dimer ABG pH POC ABG pO2 ABG pO2 ABG HCO3 ABG O2 Saturation ABG Base Excess ABG Oxyhemoglobin ABG Sodium ABG Chloride ABG Glucose Oxyhemoglobin Carboxyhemoglobin Sodium 136 L Potassium Chloride Carbon Dioxide BUN 18 H Creatinine 0.2 L Glucose 142 H POC Glucose Hemoglobin A1c Ferritin 350.7 H AST ALT Alkaline Phosphatase Lactate Dehydrogenase 546 H C-Reactive Protein Total Protein 6.1 L Albumin 3.0 L Arterial Blood Glucose Coronavirus (PCR) 05/12/21 05/12/21 05/12/21 05:11 11:17 16:27 WBC MCHC RDW Lymph % (Auto) Lymph # (Auto) Baso # (Auto) Seg Neutrophils % Seg Neuts % (Manual) Lymphocytes % (Manual) Seg Neutrophils # Seg Neutrophils # Man Lymphocytes # (Manual) D-Dimer ABG pH POC ABG pO2 ABG pO2 ABG HCO3 ABG O2 Saturation ABG Base Excess ABG Oxyhemoglobin ABG Sodium ABG Chloride ABG Glucose Oxyhemoglobin Carboxyhemoglobin Sodium Potassium Chloride Carbon Dioxide BUN Creatinine Glucose POC Glucose 152 H 190 H 261 H Hemoglobin A1c Ferritin AST ALT Alkaline Phosphatase Lactate Dehydrogenase C-Reactive Protein Total Protein Albumin Arterial Blood Glucose Coronavirus (PCR) 05/12/21 05/13/21 05/13/21 20:55 11:08 21:41 WBC MCHC RDW Lymph % (Auto) Lymph # (Auto) Baso # (Auto) Seg Neutrophils % Seg Neuts % (Manual) Lymphocytes % (Manual) Seg Neutrophils # Seg Neutrophils # Man Lymphocytes # (Manual) D-Dimer ABG pH POC ABG pO2 ABG pO2 ABG HCO3 ABG O2 Saturation ABG Base Excess ABG Oxyhemoglobin ABG Sodium ABG Chloride ABG Glucose Oxyhemoglobin Carboxyhemoglobin Sodium Potassium Chloride Carbon Dioxide BUN Creatinine Glucose POC Glucose 231 H 106 H 174 H Hemoglobin A1c Ferritin AST ALT Alkaline Phosphatase Lactate Dehydrogenase C-Reactive Protein Total Protein Albumin Arterial Blood Glucose Coronavirus (PCR) 05/14/21 05/14/21 05/14/21 00:53 02:23 06:06 WBC MCHC RDW Lymph % (Auto) Lymph # (Auto) Baso # (Auto) Seg Neutrophils % Seg Neuts % (Manual) Lymphocytes % (Manual) Seg Neutrophils # Seg Neutrophils # Man Lymphocytes # (Manual) D-Dimer ABG pH POC ABG pO2 ABG pO2 130.3 H ABG HCO3 30.6 H ABG O2 Saturation ABG Base Excess 4.9 H ABG Oxyhemoglobin ABG Sodium ABG Chloride ABG Glucose Oxyhemoglobin Carboxyhemoglobin Sodium Potassium Chloride Carbon Dioxide BUN Creatinine Glucose POC Glucose 229 H 119 H Hemoglobin A1c Ferritin AST ALT Alkaline Phosphatase Lactate Dehydrogenase C-Reactive Protein Total Protein Albumin Arterial Blood Glucose Coronavirus (PCR) 05/14/21 05/14/21 05/14/21 07:13 07:13 07:13 WBC MCHC RDW Lymph % (Auto) Lymph # (Auto) Baso # (Auto) Seg Neutrophils % Seg Neuts % (Manual) Lymphocytes % (Manual) Seg Neutrophils # Seg Neutrophils # Man Lymphocytes # (Manual) D-Dimer 712.80 H ABG pH POC ABG pO2 ABG pO2 ABG HCO3 ABG O2 Saturation ABG Base Excess ABG Oxyhemoglobin ABG Sodium ABG Chloride ABG Glucose Oxyhemoglobin Carboxyhemoglobin Sodium 133 L Potassium Chloride 95.5 L Carbon Dioxide 32 H BUN Creatinine 0.2 L Glucose 137 H POC Glucose Hemoglobin A1c Ferritin 283.5 H AST ALT 63 H Alkaline Phosphatase Lactate Dehydrogenase 563 H C-Reactive Protein Total Protein 6.1 L Albumin 3.0 L Arterial Blood Glucose Coronavirus (PCR) 05/14/21 05/14/21 05/14/21 12:21 15:33 21:50 WBC MCHC RDW Lymph % (Auto) Lymph # (Auto) Baso # (Auto) Seg Neutrophils % Seg Neuts % (Manual) Lymphocytes % (Manual) Seg Neutrophils # Seg Neutrophils # Man Lymphocytes # (Manual) D-Dimer ABG pH POC ABG pO2 ABG pO2 ABG HCO3 ABG O2 Saturation ABG Base Excess ABG Oxyhemoglobin ABG Sodium ABG Chloride ABG Glucose Oxyhemoglobin Carboxyhemoglobin Sodium Potassium Chloride Carbon Dioxide BUN Creatinine Glucose POC Glucose 143 H 204 H 202 H Hemoglobin A1c Ferritin AST ALT Alkaline Phosphatase Lactate Dehydrogenase C-Reactive Protein Total Protein Albumin Arterial Blood Glucose Coronavirus (PCR) 05/15/21 05/15/21 05/15/21 05:05 11:12 16:39 WBC MCHC RDW Lymph % (Auto) Lymph # (Auto) Baso # (Auto) Seg Neutrophils % Seg Neuts % (Manual) Lymphocytes % (Manual) Seg Neutrophils # Seg Neutrophils # Man Lymphocytes # (Manual) D-Dimer ABG pH POC ABG pO2 ABG pO2 ABG HCO3 ABG O2 Saturation ABG Base Excess ABG Oxyhemoglobin ABG Sodium ABG Chloride ABG Glucose Oxyhemoglobin Carboxyhemoglobin Sodium Potassium Chloride Carbon Dioxide BUN Creatinine Glucose POC Glucose 125 H 201 H 241 H Hemoglobin A1c Ferritin AST ALT Alkaline Phosphatase Lactate Dehydrogenase C-Reactive Protein Total Protein Albumin Arterial Blood Glucose Coronavirus (PCR) 05/15/21 05/16/21 05/16/21 21:31 05:04 10:40 WBC MCHC RDW Lymph % (Auto) Lymph # (Auto) Baso # (Auto) Seg Neutrophils % Seg Neuts % (Manual) Lymphocytes % (Manual) Seg Neutrophils # Seg Neutrophils # Man Lymphocytes # (Manual) D-Dimer ABG pH POC ABG pO2 ABG pO2 ABG HCO3 ABG O2 Saturation ABG Base Excess ABG Oxyhemoglobin ABG Sodium ABG Chloride ABG Glucose Oxyhemoglobin Carboxyhemoglobin Sodium Potassium Chloride Carbon Dioxide BUN Creatinine Glucose POC Glucose 234 H 123 H 231 H Hemoglobin A1c Ferritin AST ALT Alkaline Phosphatase Lactate Dehydrogenase C-Reactive Protein Total Protein Albumin Arterial Blood Glucose Coronavirus (PCR) 05/16/21 05/16/21 05/17/21 18:23 21:29 06:20 WBC MCHC RDW 18.8 H Lymph % (Auto) 10.2 L Lymph # (Auto) 0.8 L Baso # (Auto) Seg Neutrophils % 85.8 H Seg Neuts % (Manual) Lymphocytes % (Manual) Seg Neutrophils # Seg Neutrophils # Man Lymphocytes # (Manual) D-Dimer ABG pH POC ABG pO2 ABG pO2 ABG HCO3 ABG O2 Saturation ABG Base Excess ABG Oxyhemoglobin ABG Sodium ABG Chloride ABG Glucose Oxyhemoglobin Carboxyhemoglobin Sodium Potassium Chloride Carbon Dioxide BUN Creatinine Glucose POC Glucose 266 H 234 H Hemoglobin A1c Ferritin AST ALT Alkaline Phosphatase Lactate Dehydrogenase C-Reactive Protein Total Protein Albumin Arterial Blood Glucose Coronavirus (PCR) 05/17/21 05/17/21 05/17/21 06:20 11:06 16:36 WBC MCHC RDW Lymph % (Auto) Lymph # (Auto) Baso # (Auto) Seg Neutrophils % Seg Neuts % (Manual) Lymphocytes % (Manual) Seg Neutrophils # Seg Neutrophils # Man Lymphocytes # (Manual) D-Dimer ABG pH POC ABG pO2 ABG pO2 ABG HCO3 ABG O2 Saturation ABG Base Excess ABG Oxyhemoglobin ABG Sodium ABG Chloride ABG Glucose Oxyhemoglobin Carboxyhemoglobin Sodium Potassium Chloride Carbon Dioxide 33 H BUN Creatinine 0.2 L Glucose 101 H POC Glucose 209 H 180 H Hemoglobin A1c Ferritin AST ALT Alkaline Phosphatase Lactate Dehydrogenase C-Reactive Protein Total Protein Albumin Arterial Blood Glucose Coronavirus (PCR) 05/17/21 05/18/21 05/18/21 21:06 12:00 15:06 WBC MCHC RDW Lymph % (Auto) Lymph # (Auto) Baso # (Auto) Seg Neutrophils % Seg Neuts % (Manual) Lymphocytes % (Manual) Seg Neutrophils # Seg Neutrophils # Man Lymphocytes # (Manual) D-Dimer 874.02 H ABG pH POC ABG pO2 ABG pO2 ABG HCO3 ABG O2 Saturation ABG Base Excess ABG Oxyhemoglobin ABG Sodium ABG Chloride ABG Glucose Oxyhemoglobin Carboxyhemoglobin Sodium Potassium Chloride Carbon Dioxide BUN Creatinine Glucose POC Glucose 256 H 139 H Hemoglobin A1c Ferritin AST ALT Alkaline Phosphatase Lactate Dehydrogenase C-Reactive Protein Total Protein Albumin Arterial Blood Glucose Coronavirus (PCR) 05/18/21 05/18/21 05/18/21 15:06 15:06 16:08 WBC MCHC RDW Lymph % (Auto) Lymph # (Auto) Baso # (Auto) Seg Neutrophils % Seg Neuts % (Manual) Lymphocytes % (Manual) Seg Neutrophils # Seg Neutrophils # Man Lymphocytes # (Manual) D-Dimer ABG pH POC ABG pO2 ABG pO2 ABG HCO3 ABG O2 Saturation ABG Base Excess ABG Oxyhemoglobin ABG Sodium ABG Chloride ABG Glucose Oxyhemoglobin Carboxyhemoglobin Sodium Potassium Chloride Carbon Dioxide BUN Creatinine Glucose POC Glucose 178 H Hemoglobin A1c Ferritin 289.6 H AST ALT Alkaline Phosphatase Lactate Dehydrogenase 605 H C-Reactive Protein Total Protein Albumin Arterial Blood Glucose Coronavirus (PCR) 05/18/21 05/19/21 05/19/21 21:22 11:57 15:26 WBC MCHC RDW Lymph % (Auto) Lymph # (Auto) Baso # (Auto) Seg Neutrophils % Seg Neuts % (Manual) Lymphocytes % (Manual) Seg Neutrophils # Seg Neutrophils # Man Lymphocytes # (Manual) D-Dimer ABG pH POC ABG pO2 ABG pO2 ABG HCO3 ABG O2 Saturation ABG Base Excess ABG Oxyhemoglobin ABG Sodium ABG Chloride ABG Glucose Oxyhemoglobin Carboxyhemoglobin Sodium Potassium Chloride Carbon Dioxide BUN Creatinine Glucose POC Glucose 241 H 201 H 209 H Hemoglobin A1c Ferritin AST ALT Alkaline Phosphatase Lactate Dehydrogenase C-Reactive Protein Total Protein Albumin Arterial Blood Glucose Coronavirus (PCR) 05/19/21 05/20/21 05/20/21 20:59 07:38 08:01 WBC MCHC RDW 19.7 H Lymph % (Auto) 8.3 L Lymph # (Auto) 0.8 L Baso # (Auto) Seg Neutrophils % 88.6 H Seg Neuts % (Manual) Lymphocytes % (Manual) Seg Neutrophils # 8.4 H Seg Neutrophils # Man Lymphocytes # (Manual) D-Dimer ABG pH POC ABG pO2 ABG pO2 ABG HCO3 ABG O2 Saturation ABG Base Excess ABG Oxyhemoglobin ABG Sodium ABG Chloride ABG Glucose Oxyhemoglobin Carboxyhemoglobin Sodium Potassium Chloride Carbon Dioxide BUN Creatinine Glucose POC Glucose 226 H 130 H Hemoglobin A1c Ferritin AST ALT Alkaline Phosphatase Lactate Dehydrogenase C-Reactive Protein Total Protein Albumin Arterial Blood Glucose Coronavirus (PCR) 05/20/21 05/20/21 05/20/21 08:01 11:00 16:43 WBC MCHC RDW Lymph % (Auto) Lymph # (Auto) Baso # (Auto) Seg Neutrophils % Seg Neuts % (Manual) Lymphocytes % (Manual) Seg Neutrophils # Seg Neutrophils # Man Lymphocytes # (Manual) D-Dimer ABG pH POC ABG pO2 ABG pO2 ABG HCO3 ABG O2 Saturation ABG Base Excess ABG Oxyhemoglobin ABG Sodium ABG Chloride ABG Glucose Oxyhemoglobin Carboxyhemoglobin Sodium Potassium Chloride Carbon Dioxide BUN 18 H Creatinine 0.2 L Glucose 132 H POC Glucose 237 H 240 H Hemoglobin A1c Ferritin AST ALT Alkaline Phosphatase Lactate Dehydrogenase C-Reactive Protein Total Protein Albumin Arterial Blood Glucose Coronavirus (PCR) 05/20/21 05/21/21 05/21/21 21:21 07:35 11:32 WBC MCHC RDW Lymph % (Auto) Lymph # (Auto) Baso # (Auto) Seg Neutrophils % Seg Neuts % (Manual) Lymphocytes % (Manual) Seg Neutrophils # Seg Neutrophils # Man Lymphocytes # (Manual) D-Dimer ABG pH POC ABG pO2 ABG pO2 ABG HCO3 ABG O2 Saturation ABG Base Excess ABG Oxyhemoglobin ABG Sodium ABG Chloride ABG Glucose Oxyhemoglobin Carboxyhemoglobin Sodium Potassium Chloride Carbon Dioxide BUN Creatinine Glucose POC Glucose 241 H 162 H 171 H Hemoglobin A1c Ferritin AST ALT Alkaline Phosphatase Lactate Dehydrogenase C-Reactive Protein Total Protein Albumin Arterial Blood Glucose Coronavirus (PCR) 05/21/21 05/21/21 05/22/21 16:22 20:43 05:14 WBC MCHC RDW Lymph % (Auto) Lymph # (Auto) Baso # (Auto) Seg Neutrophils % Seg Neuts % (Manual) Lymphocytes % (Manual) Seg Neutrophils # Seg Neutrophils # Man Lymphocytes # (Manual) D-Dimer ABG pH POC ABG pO2 ABG pO2 ABG HCO3 ABG O2 Saturation ABG Base Excess ABG Oxyhemoglobin ABG Sodium ABG Chloride ABG Glucose Oxyhemoglobin Carboxyhemoglobin Sodium Potassium Chloride Carbon Dioxide BUN Creatinine Glucose POC Glucose 244 H 299 H 140 H Hemoglobin A1c Ferritin AST ALT Alkaline Phosphatase Lactate Dehydrogenase C-Reactive Protein Total Protein Albumin Arterial Blood Glucose Coronavirus (PCR) 05/22/21 05/22/21 05/22/21 08:45 11:54 16:15 WBC MCHC RDW Lymph % (Auto) Lymph # (Auto) Baso # (Auto) Seg Neutrophils % Seg Neuts % (Manual) Lymphocytes % (Manual) Seg Neutrophils # Seg Neutrophils # Man Lymphocytes # (Manual) D-Dimer ABG pH POC ABG pO2 ABG pO2 ABG HCO3 ABG O2 Saturation ABG Base Excess ABG Oxyhemoglobin ABG Sodium ABG Chloride ABG Glucose Oxyhemoglobin Carboxyhemoglobin Sodium Potassium Chloride Carbon Dioxide BUN Creatinine Glucose POC Glucose 133 H 265 H 221 H Hemoglobin A1c Ferritin AST ALT Alkaline Phosphatase Lactate Dehydrogenase C-Reactive Protein Total Protein Albumin Arterial Blood Glucose Coronavirus (PCR) 05/22/21 05/23/21 05/23/21 21:43 08:20 09:50 WBC MCHC RDW Lymph % (Auto) Lymph # (Auto) Baso # (Auto) Seg Neutrophils % Seg Neuts % (Manual) Lymphocytes % (Manual) Seg Neutrophils # Seg Neutrophils # Man Lymphocytes # (Manual) D-Dimer 910.38 H ABG pH POC ABG pO2 ABG pO2 ABG HCO3 ABG O2 Saturation ABG Base Excess ABG Oxyhemoglobin ABG Sodium ABG Chloride ABG Glucose Oxyhemoglobin Carboxyhemoglobin Sodium Potassium Chloride Carbon Dioxide BUN Creatinine Glucose POC Glucose 262 H 140 H Hemoglobin A1c Ferritin AST ALT Alkaline Phosphatase Lactate Dehydrogenase C-Reactive Protein Total Protein Albumin Arterial Blood Glucose Coronavirus (PCR) 05/23/21 05/23/21 05/23/21 09:50 09:50 10:52 WBC MCHC RDW Lymph % (Auto) Lymph # (Auto) Baso # (Auto) Seg Neutrophils % Seg Neuts % (Manual) Lymphocytes % (Manual) Seg Neutrophils # Seg Neutrophils # Man Lymphocytes # (Manual) D-Dimer ABG pH POC ABG pO2 ABG pO2 ABG HCO3 ABG O2 Saturation ABG Base Excess ABG Oxyhemoglobin ABG Sodium ABG Chloride ABG Glucose Oxyhemoglobin Carboxyhemoglobin Sodium Potassium Chloride Carbon Dioxide BUN Creatinine Glucose POC Glucose 241 H Hemoglobin A1c Ferritin 244.9 H AST ALT Alkaline Phosphatase Lactate Dehydrogenase 584 H C-Reactive Protein Total Protein Albumin Arterial Blood Glucose Coronavirus (PCR) 05/23/21 05/23/21 05/24/21 17:24 21:52 07:44 WBC MCHC RDW Lymph % (Auto) Lymph # (Auto) Baso # (Auto) Seg Neutrophils % Seg Neuts % (Manual) Lymphocytes % (Manual) Seg Neutrophils # Seg Neutrophils # Man Lymphocytes # (Manual) D-Dimer ABG pH POC ABG pO2 ABG pO2 ABG HCO3 ABG O2 Saturation ABG Base Excess ABG Oxyhemoglobin ABG Sodium ABG Chloride ABG Glucose Oxyhemoglobin Carboxyhemoglobin Sodium Potassium Chloride Carbon Dioxide BUN Creatinine Glucose POC Glucose 197 H 289 H 161 H Hemoglobin A1c Ferritin AST ALT Alkaline Phosphatase Lactate Dehydrogenase C-Reactive Protein Total Protein Albumin Arterial Blood Glucose Coronavirus (PCR) 05/24/21 05/24/21 05/24/21 11:17 17:51 21:26 WBC MCHC RDW Lymph % (Auto) Lymph # (Auto) Baso # (Auto) Seg Neutrophils % Seg Neuts % (Manual) Lymphocytes % (Manual) Seg Neutrophils # Seg Neutrophils # Man Lymphocytes # (Manual) D-Dimer ABG pH POC ABG pO2 ABG pO2 ABG HCO3 ABG O2 Saturation ABG Base Excess ABG Oxyhemoglobin ABG Sodium ABG Chloride ABG Glucose Oxyhemoglobin Carboxyhemoglobin Sodium Potassium Chloride Carbon Dioxide BUN Creatinine Glucose POC Glucose 308 H 175 H 198 H Hemoglobin A1c Ferritin AST ALT Alkaline Phosphatase Lactate Dehydrogenase C-Reactive Protein Total Protein Albumin Arterial Blood Glucose Coronavirus (PCR) 05/25/21 05/25/21 05/25/21 08:14 11:13 17:13 WBC MCHC RDW Lymph % (Auto) Lymph # (Auto) Baso # (Auto) Seg Neutrophils % Seg Neuts % (Manual) Lymphocytes % (Manual) Seg Neutrophils # Seg Neutrophils # Man Lymphocytes # (Manual) D-Dimer ABG pH POC ABG pO2 ABG pO2 ABG HCO3 ABG O2 Saturation ABG Base Excess ABG Oxyhemoglobin ABG Sodium ABG Chloride ABG Glucose Oxyhemoglobin Carboxyhemoglobin Sodium Potassium Chloride Carbon Dioxide BUN Creatinine Glucose POC Glucose 203 H 339 H 235 H Hemoglobin A1c Ferritin AST ALT Alkaline Phosphatase Lactate Dehydrogenase C-Reactive Protein Total Protein Albumin Arterial Blood Glucose Coronavirus (PCR) 05/25/21 05/26/21 05/26/21 21:03 07:33 11:19 WBC MCHC RDW Lymph % (Auto) Lymph # (Auto) Baso # (Auto) Seg Neutrophils % Seg Neuts % (Manual) Lymphocytes % (Manual) Seg Neutrophils # Seg Neutrophils # Man Lymphocytes # (Manual) D-Dimer ABG pH POC ABG pO2 ABG pO2 ABG HCO3 ABG O2 Saturation ABG Base Excess ABG Oxyhemoglobin ABG Sodium ABG Chloride ABG Glucose Oxyhemoglobin Carboxyhemoglobin Sodium Potassium Chloride Carbon Dioxide BUN Creatinine Glucose POC Glucose 263 H 156 H 288 H Hemoglobin A1c Ferritin AST ALT Alkaline Phosphatase Lactate Dehydrogenase C-Reactive Protein Total Protein Albumin Arterial Blood Glucose Coronavirus (PCR) 05/26/21 05/26/21 05/27/21 16:26 20:55 07:38 WBC MCHC RDW Lymph % (Auto) Lymph # (Auto) Baso # (Auto) Seg Neutrophils % Seg Neuts % (Manual) Lymphocytes % (Manual) Seg Neutrophils # Seg Neutrophils # Man Lymphocytes # (Manual) D-Dimer ABG pH POC ABG pO2 ABG pO2 ABG HCO3 ABG O2 Saturation ABG Base Excess ABG Oxyhemoglobin ABG Sodium ABG Chloride ABG Glucose Oxyhemoglobin Carboxyhemoglobin Sodium Potassium Chloride Carbon Dioxide BUN Creatinine Glucose POC Glucose 286 H 293 H 115 H Hemoglobin A1c Ferritin AST ALT Alkaline Phosphatase Lactate Dehydrogenase C-Reactive Protein Total Protein Albumin Arterial Blood Glucose Coronavirus (PCR) 05/27/21 05/27/21 05/27/21 11:46 15:58 21:02 WBC MCHC RDW Lymph % (Auto) Lymph # (Auto) Baso # (Auto) Seg Neutrophils % Seg Neuts % (Manual) Lymphocytes % (Manual) Seg Neutrophils # Seg Neutrophils # Man Lymphocytes # (Manual) D-Dimer ABG pH POC ABG pO2 ABG pO2 ABG HCO3 ABG O2 Saturation ABG Base Excess ABG Oxyhemoglobin ABG Sodium ABG Chloride ABG Glucose Oxyhemoglobin Carboxyhemoglobin Sodium Potassium Chloride Carbon Dioxide BUN Creatinine Glucose POC Glucose 260 H 318 H 246 H Hemoglobin A1c Ferritin AST ALT Alkaline Phosphatase Lactate Dehydrogenase C-Reactive Protein Total Protein Albumin Arterial Blood Glucose Coronavirus (PCR) 05/28/21 05/28/21 05/28/21 07:34 11:31 16:36 WBC MCHC RDW Lymph % (Auto) Lymph # (Auto) Baso # (Auto) Seg Neutrophils % Seg Neuts % (Manual) Lymphocytes % (Manual) Seg Neutrophils # Seg Neutrophils # Man Lymphocytes # (Manual) D-Dimer ABG pH POC ABG pO2 ABG pO2 ABG HCO3 ABG O2 Saturation ABG Base Excess ABG Oxyhemoglobin ABG Sodium ABG Chloride ABG Glucose Oxyhemoglobin Carboxyhemoglobin Sodium Potassium Chloride Carbon Dioxide BUN Creatinine Glucose POC Glucose 185 H 297 H 183 H Hemoglobin A1c Ferritin AST ALT Alkaline Phosphatase Lactate Dehydrogenase C-Reactive Protein Total Protein Albumin Arterial Blood Glucose Coronavirus (PCR) 05/28/21 05/29/21 05/29/21 21:19 07:34 11:19 WBC MCHC RDW Lymph % (Auto) Lymph # (Auto) Baso # (Auto) Seg Neutrophils % Seg Neuts % (Manual) Lymphocytes % (Manual) Seg Neutrophils # Seg Neutrophils # Man Lymphocytes # (Manual) D-Dimer ABG pH POC ABG pO2 ABG pO2 ABG HCO3 ABG O2 Saturation ABG Base Excess ABG Oxyhemoglobin ABG Sodium ABG Chloride ABG Glucose Oxyhemoglobin Carboxyhemoglobin Sodium Potassium Chloride Carbon Dioxide BUN Creatinine Glucose POC Glucose 274 H 139 H 293 H Hemoglobin A1c Ferritin AST ALT Alkaline Phosphatase Lactate Dehydrogenase C-Reactive Protein Total Protein Albumin Arterial Blood Glucose Coronavirus (PCR) 05/29/21 05/29/21 05/30/21 16:36 22:44 05:55 WBC MCHC RDW 21.3 H Lymph % (Auto) 8.0 L Lymph # (Auto) 0.6 L Baso # (Auto) Seg Neutrophils % 88.6 H Seg Neuts % (Manual) Lymphocytes % (Manual) Seg Neutrophils # Seg Neutrophils # Man Lymphocytes # (Manual) D-Dimer ABG pH POC ABG pO2 ABG pO2 ABG HCO3 ABG O2 Saturation ABG Base Excess ABG Oxyhemoglobin ABG Sodium ABG Chloride ABG Glucose Oxyhemoglobin Carboxyhemoglobin Sodium Potassium Chloride Carbon Dioxide BUN Creatinine Glucose POC Glucose 299 H 160 H Hemoglobin A1c Ferritin AST ALT Alkaline Phosphatase Lactate Dehydrogenase C-Reactive Protein Total Protein Albumin Arterial Blood Glucose Coronavirus (PCR) 05/30/21 05/30/21 05/30/21 05:55 08:04 11:13 WBC MCHC RDW Lymph % (Auto) Lymph # (Auto) Baso # (Auto) Seg Neutrophils % Seg Neuts % (Manual) Lymphocytes % (Manual) Seg Neutrophils # Seg Neutrophils # Man Lymphocytes # (Manual) D-Dimer ABG pH POC ABG pO2 ABG pO2 ABG HCO3 ABG O2 Saturation ABG Base Excess ABG Oxyhemoglobin ABG Sodium ABG Chloride ABG Glucose Oxyhemoglobin Carboxyhemoglobin Sodium Potassium Chloride Carbon Dioxide BUN 19 H Creatinine 0.2 L Glucose 209 H POC Glucose 157 H 275 H Hemoglobin A1c Ferritin AST ALT Alkaline Phosphatase Lactate Dehydrogenase C-Reactive Protein Total Protein Albumin Arterial Blood Glucose Coronavirus (PCR) 05/30/21 05/30/21 05/31/21 17:08 22:12 07:36 WBC MCHC RDW Lymph % (Auto) Lymph # (Auto) Baso # (Auto) Seg Neutrophils % Seg Neuts % (Manual) Lymphocytes % (Manual) Seg Neutrophils # Seg Neutrophils # Man Lymphocytes # (Manual) D-Dimer ABG pH POC ABG pO2 ABG pO2 ABG HCO3 ABG O2 Saturation ABG Base Excess ABG Oxyhemoglobin ABG Sodium ABG Chloride ABG Glucose Oxyhemoglobin Carboxyhemoglobin Sodium Potassium Chloride Carbon Dioxide BUN Creatinine Glucose POC Glucose 154 H 275 H 138 H Hemoglobin A1c Ferritin AST ALT Alkaline Phosphatase Lactate Dehydrogenase C-Reactive Protein Total Protein Albumin Arterial Blood Glucose Coronavirus (PCR) 05/31/21 05/31/21 05/31/21 11:17 16:55 21:25 WBC MCHC RDW Lymph % (Auto) Lymph # (Auto) Baso # (Auto) Seg Neutrophils % Seg Neuts % (Manual) Lymphocytes % (Manual) Seg Neutrophils # Seg Neutrophils # Man Lymphocytes # (Manual) D-Dimer ABG pH POC ABG pO2 ABG pO2 ABG HCO3 ABG O2 Saturation ABG Base Excess ABG Oxyhemoglobin ABG Sodium ABG Chloride ABG Glucose Oxyhemoglobin Carboxyhemoglobin Sodium Potassium Chloride Carbon Dioxide BUN Creatinine Glucose POC Glucose 258 H 215 H 318 H Hemoglobin A1c Ferritin AST ALT Alkaline Phosphatase Lactate Dehydrogenase C-Reactive Protein Total Protein Albumin Arterial Blood Glucose Coronavirus (PCR) 06/01/21 06/01/21 06/01/21 07:23 11:38 16:52 WBC MCHC RDW Lymph % (Auto) Lymph # (Auto) Baso # (Auto) Seg Neutrophils % Seg Neuts % (Manual) Lymphocytes % (Manual) Seg Neutrophils # Seg Neutrophils # Man Lymphocytes # (Manual) D-Dimer ABG pH POC ABG pO2 ABG pO2 ABG HCO3 ABG O2 Saturation ABG Base Excess ABG Oxyhemoglobin ABG Sodium ABG Chloride ABG Glucose Oxyhemoglobin Carboxyhemoglobin Sodium Potassium Chloride Carbon Dioxide BUN Creatinine Glucose POC Glucose 157 H 259 H 150 H Hemoglobin A1c Ferritin AST ALT Alkaline Phosphatase Lactate Dehydrogenase C-Reactive Protein Total Protein Albumin Arterial Blood Glucose Coronavirus (PCR) 06/01/21 06/02/21 06/02/21 23:16 05:34 05:34 WBC MCHC RDW 21.3 H Lymph % (Auto) 9.6 L Lymph # (Auto) 0.6 L Baso # (Auto) Seg Neutrophils % 86.2 H Seg Neuts % (Manual) Lymphocytes % (Manual) Seg Neutrophils # Seg Neutrophils # Man Lymphocytes # (Manual) D-Dimer ABG pH POC ABG pO2 ABG pO2 ABG HCO3 ABG O2 Saturation ABG Base Excess ABG Oxyhemoglobin ABG Sodium ABG Chloride ABG Glucose Oxyhemoglobin Carboxyhemoglobin Sodium 136 L Potassium Chloride Carbon Dioxide BUN Creatinine 0.2 L Glucose 186 H POC Glucose 247 H Hemoglobin A1c Ferritin AST ALT 69 H Alkaline Phosphatase Lactate Dehydrogenase C-Reactive Protein Total Protein 6.1 L Albumin 3.2 L Arterial Blood Glucose Coronavirus (PCR) 06/02/21 06/02/21 06/02/21 11:25 18:23 21:32 WBC MCHC RDW Lymph % (Auto) Lymph # (Auto) Baso # (Auto) Seg Neutrophils % Seg Neuts % (Manual) Lymphocytes % (Manual) Seg Neutrophils # Seg Neutrophils # Man Lymphocytes # (Manual) D-Dimer ABG pH POC ABG pO2 ABG pO2 ABG HCO3 ABG O2 Saturation ABG Base Excess ABG Oxyhemoglobin ABG Sodium ABG Chloride ABG Glucose Oxyhemoglobin Carboxyhemoglobin Sodium Potassium Chloride Carbon Dioxide BUN Creatinine Glucose POC Glucose 157 H 299 H 246 H Hemoglobin A1c Ferritin AST ALT Alkaline Phosphatase Lactate Dehydrogenase C-Reactive Protein Total Protein Albumin Arterial Blood Glucose Coronavirus (PCR) 06/03/21 06/03/21 06/03/21 08:12 12:21 17:31 WBC MCHC RDW Lymph % (Auto) Lymph # (Auto) Baso # (Auto) Seg Neutrophils % Seg Neuts % (Manual) Lymphocytes % (Manual) Seg Neutrophils # Seg Neutrophils # Man Lymphocytes # (Manual) D-Dimer ABG pH POC ABG pO2 ABG pO2 ABG HCO3 ABG O2 Saturation ABG Base Excess ABG Oxyhemoglobin ABG Sodium ABG Chloride ABG Glucose Oxyhemoglobin Carboxyhemoglobin Sodium Potassium Chloride Carbon Dioxide BUN Creatinine Glucose POC Glucose 153 H 302 H 252 H Hemoglobin A1c Ferritin AST ALT Alkaline Phosphatase Lactate Dehydrogenase C-Reactive Protein Total Protein Albumin Arterial Blood Glucose Coronavirus (PCR) 06/03/21 06/04/21 06/04/21 22:08 11:12 16:01 WBC MCHC RDW Lymph % (Auto) Lymph # (Auto) Baso # (Auto) Seg Neutrophils % Seg Neuts % (Manual) Lymphocytes % (Manual) Seg Neutrophils # Seg Neutrophils # Man Lymphocytes # (Manual) D-Dimer ABG pH POC ABG pO2 ABG pO2 ABG HCO3 ABG O2 Saturation ABG Base Excess ABG Oxyhemoglobin ABG Sodium ABG Chloride ABG Glucose Oxyhemoglobin Carboxyhemoglobin Sodium Potassium Chloride Carbon Dioxide BUN Creatinine Glucose POC Glucose 224 H 259 H 238 H Hemoglobin A1c Ferritin AST ALT Alkaline Phosphatase Lactate Dehydrogenase C-Reactive Protein Total Protein Albumin Arterial Blood Glucose Coronavirus (PCR) 06/04/21 06/05/21 06/05/21 21:26 05:26 05:26 WBC MCHC RDW Lymph % (Auto) Lymph # (Auto) Baso # (Auto) Seg Neutrophils % Seg Neuts % (Manual) Lymphocytes % (Manual) Seg Neutrophils # Seg Neutrophils # Man Lymphocytes # (Manual) D-Dimer 488.49 H ABG pH POC ABG pO2 ABG pO2 ABG HCO3 ABG O2 Saturation ABG Base Excess ABG Oxyhemoglobin ABG Sodium ABG Chloride ABG Glucose Oxyhemoglobin Carboxyhemoglobin Sodium Potassium Chloride Carbon Dioxide BUN Creatinine 0.2 L Glucose 198 H POC Glucose 257 H Hemoglobin A1c Ferritin AST ALT Alkaline Phosphatase Lactate Dehydrogenase 475 H C-Reactive Protein Total Protein Albumin Arterial Blood Glucose Coronavirus (PCR) 06/05/21 06/05/21 06/05/21 07:20 08:30 11:00 WBC MCHC RDW Lymph % (Auto) Lymph # (Auto) Baso # (Auto) Seg Neutrophils % Seg Neuts % (Manual) Lymphocytes % (Manual) Seg Neutrophils # Seg Neutrophils # Man Lymphocytes # (Manual) D-Dimer ABG pH POC ABG pO2 ABG pO2 ABG HCO3 ABG O2 Saturation ABG Base Excess ABG Oxyhemoglobin ABG Sodium ABG Chloride ABG Glucose Oxyhemoglobin Carboxyhemoglobin Sodium Potassium Chloride Carbon Dioxide BUN Creatinine Glucose POC Glucose 146 H 246 H Hemoglobin A1c Ferritin AST ALT Alkaline Phosphatase Lactate Dehydrogenase C-Reactive Protein Total Protein Albumin Arterial Blood Glucose Coronavirus (PCR) Positive A 09/06/05/21 06/06/21 16:50 22:30 07:57 WBC MCHC RDW Lymph % (Auto) Lymph # (Auto) Baso # (Auto) Seg Neutrophils % Seg Neuts % (Manual) Lymphocytes % (Manual) Seg Neutrophils # Seg Neutrophils # Man Lymphocytes # (Manual) D-Dimer ABG pH POC ABG pO2 ABG pO2 ABG HCO3 ABG O2 Saturation ABG Base Excess ABG Oxyhemoglobin ABG Sodium ABG Chloride ABG Glucose Oxyhemoglobin Carboxyhemoglobin Sodium Potassium Chloride Carbon Dioxide BUN Creatinine Glucose POC Glucose 240 H 174 H 120 H Hemoglobin A1c Ferritin AST ALT Alkaline Phosphatase Lactate Dehydrogenase C-Reactive Protein Total Protein Albumin Arterial Blood Glucose Coronavirus (PCR)
[2021-06-06] MEDS: INSULIN LISPRO 100 UNIT/ML SUB-Q SCH ×4 (08:47→23:18)
--- NOTE | 2021-06-06 09:43 | Progress Note ---
Assessment and Plan Assessment and plan: COVID-19 positive 04/17/2021 COVID-19 test - 05/21/2021 Gomes 19 test positive 06/05/21 CTA chest today 06/06/2021; no CT evidence of PE, diffuse bilateral groundglass opacities in both lungs that can indicate a combination of edema and/or pneumonia ARDS could also produce this appearance Lower extremity venous Doppler 05/01/2021 - negative for DVT Patient remains on high flow nasal cannula oxygen 35 L/70% FiO2/96 O2 sats I communicated frequently through a bilingual friend of the patient over her iPhone at the bedside. I explained in detail patient's condition, severe hypoxia, requiring high flow nasal cannula oxygen Treatment plan, prognosis and discharge planning with the friend who translated to [place] Patient verbalized understanding and asked many questions, I answered all of them with the help of the facs teacher[patient's friend] --Acute respiratory failure with hypoxia/COVID-19 infection Patient is currently requiring high flow nasal cannula oxygen 35 L/80% FiO2/O2 sats 98% and intermittent BiPAP, patient slightly anxious wean as tolerated, Prone positioning, Home O2 evaluation Continue management per COVID-19 guidelines CTA done 06/06/2021; negative for PE however diffuse bilateral groundglass opacities edema vs ARDS We will treat with low-dose Lasix, pulmonary following --Sepsis secondary to COVID-19 pneumonia; Continue zinc sulfate, vitamin C, oral vitamin D3 Patient is on steroid, completed remdesivir and Actemra Prone positioning, home O2 evaluation Follow inflammatory markers ID following --oral candidiasis Continue oral nystatin solution --hyponatremia Resolved, closely monitor electrolytes sodium is 142 --coagulopathy; -Subcu heparin -Trend CBC-no need for transfusion. -Transfuse for hemoglobin less than 7 -Bilateral lower extremity Doppler ultrasounds negative for DVT ; no CTA or VQ scan to rule out PE --hyperglycemia Accu-Cheks stable at this time. -Lantus HS -SSI AC/HS -Avoid hypoglycemia --moderate protein calorie malnutrition Nutrition supplement, supportive care Nutrition consult if not already done --generalized anxiety Likely due to severe hypoxia Has shown some signs of improvement over the past 24 hours able to wean oxygen some. -Follows commands and RAY -PRN pain and anxiety meds -Patient is [place]-speaking but understands Pakistani Added Ambien for insomnia. Anxiety resolving. add klonipin for anxiety --viral conjunctivitis right eye: Resolved would like drops for her eyes again. States eyes are dry. -Right eye- s/p 5 d course of cipro drops. suspect viral conjunctivitis. lubricating eye drops. supportive management. Erythema has resolved --septic shock s/p vasopressors .resolved Blood pressures reasonable level. Continue supportive care --DVT prophylaxis; Subcu Lovenox --DC planning; Per case management, , home O2 evaluation, possible home health upon discharge if needed Subjective Date of service: 06/03/21 Principal diagnosis: Covid-19 Interval history: 50 YO Female with GERD, Obesity, HLD presents to ED for evaluation. Patient reports "I cannot breathe". Patient states that she has experienced subjective fever, shortness of breath, malaise, body aches, dry cough, and shortness of breath over the past 1 week with progressively worsening symptoms over the same timeframe. EMS was notified and upon arrival the patient was found to be in distress and subsequent transported to [facility] for further care and evaluation of the aforementioned symptoms. The patient was seen and evaluated in the emerg ency department. All lab and imaging studies reviewed. Patient found to have a pulse oximetry of 86% with exertion on room air which is consistent with acute hypoxemic respiratory failure. Patient with chest x-ray which revealed bilateral pneumonia. Patient admitted to medical floor and initiated him on pneumonia protocol as well as coronavirus protocol. Patient knowledges fever but denies chills, chest pain, palpitation, skin rash, recent ill contacts, or known exposure to COVID-19. Prior admission on 01/21/2017 reviewed. All medication listed at time of admission has been reconciled. Patient is unvaccinated for coronavirus infection. 06/01/2021 Patient admitted for acute respiratory failure with hypoxia Weaning in progress Pulmonary consult appreciated COVID-pneumonia On high flow nasal cannula oxygen at 35 L. 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 development director 06/02/2021 Patient still on high flow nasal cannula oxygen 35 L high flow and 80% 06/03/2021; Patient continues to require high flow nasal cannula oxygen 35 L, BiPAP, wean as tolerated 06/04/2021; Patient is very anxious, remains on high flow nasal cannula oxygen 30 5L/80% FiO2/98% O2 sats Wean as tolerated, pulmonary following, recheck COVID-19 test Prone positioning strongly advised, continue supportive care Worsening D-dimers in the setting of hypoxia, consider CTA chest to rule out PE 06/05/2021; COVID-19 test will be repeated tomorrow[did not get proper sample today] Continues to be on high flow oxygen, mild distress 06/06/2021 CTA chest; negative for PE, ARDS-like picture versus edema We will give low-dose daily Lasix, and monitor closely I spoke with patient's daughter bilingual in Pakistani over patient's cell phone at the bedside, and conversed with the patient, She had numerous questions answered all of them, I encouraged her to call back if she has new concerns History Interval history: Patient remains on high flow nasal cannula oxygen 35 L/70% FiO2/96% O2 sats Patient still has shortness of breath, mild anxiety CTA chest edema versus ARDS, negative for PE Hospitalist Physical - Constitutional Vitals: Temp Pulse Resp BP Pulse Ox 98.0 F 75 20 110/60 96 06/06/21 04:34 06/06/21 04:34 06/06/21 04:34 06/06/21 04:34 06/06/21 04:34 General appearance: Present: mild distress, well-nourished, other (On high flow nasal cannula oxygen 35 L) - EENT Eyes: Present: PERRL, EOM intact - Neck Neck: Present: supple, normal ROM - Respiratory Respiratory effort: normal Respiratory: bilateral: diminished, rhonchi, negative: rales, wheezing - Cardiovascular Rhythm: regular Heart Sounds: Present: S1 & S2 - Extremities Extremities: no ischemia, No edema - Abdominal General gastrointestinal: soft, non-tender, non-distended, normal bowel sounds - Integumentary Integumentary: Present: clear, warm - Psychiatric Psychiatric: appropriate mood/affect, other - Neurologic Neurologic: moves all extremities (Anxious) Results - Labs CBC & Chem 7: 06/02/21 05:34 06/05/21 05:26 Labs: Laboratory Last Values WBC 6.2 K/mm3 (4.5-11.0) 06/02/21 05:34 RBC 4.29 M/mm3 (3.65-5.03) 06/02/21 05:34 Hgb 13.6 gm/dl (10.1-14.3) 06/02/21 05:34 Hct 40.5 % (30.3-42.9) 06/02/21 05:34 MCV 95 fl (79-97) 06/02/21 05:34 MCH 32 pg (28-32) 06/02/21 05:34 MCHC 34 % (30-34) 06/02/21 05:34 RDW 21.3 % (13.2-15.2) H 06/02/21 05:34 Plt Count 204 K/mm3 (140-440) 06/02/21 05:34 Lymph % (Auto) 9.6 % (13.4-35.0) L 06/02/21 05:34 Toole % (Auto) 3.9 % (0.0-7.3) 06/02/21 05:34 Eos % (Auto) 0.0 % (0.0-4.3) 06/02/21 05:34 Baso % (Auto) 0.3 % (0.0-1.8) 06/02/21 05:34 Lymph # (Auto) 0.6 K/mm3 (1.2-5.4) L 06/02/21 05:34 Toole # (Auto) 0.2 K/mm3 (0.0-0.8) 06/02/21 05:34 Eos # (Auto) 0.0 K/mm3 (0.0-0.4) 06/02/21 05:34 Baso # (Auto) 0.0 K/mm3 (0.0-0.1) 06/02/21 05:34 Add Manual Diff Complete 05/12/21 04:05 Total Counted 100 05/12/21 04:05 Seg Neutrophils % 86.2 % (40.0-70.0) H 06/02/21 05:34 Seg Neuts % (Manual) 94.0 % (40.0-70.0) H 05/12/21 04:05 Band Neutrophils % 1.0 % 05/12/21 04:05 Lymphocytes % (Manual) 4.0 % (13.4-35.0) L 05/12/21 04:05 Monocytes % (Manual) 1.0 % (0.0-7.3) 05/12/21 04:05 Nucleated RBC % Not Reportable 05/12/21 04:05 Seg Neutrophils # 5.4 K/mm3 (1.8-7.7) 06/02/21 05:34 Seg Neutrophils # Man 6.4 K/mm3 (1.8-7.7) 05/12/21 04:05 Band Neutrophils # 0.1 K/mm3 05/12/21 04:05 Lymphocytes # (Manual) 0.3 K/mm3 (1.2-5.4) L 05/12/21 04:05 Abs React Lymphs (Man) 0.0 K/mm3 05/12/21 04:05 Monocytes # (Manual) 0.1 K/mm3 (0.0-0.8) 05/12/21 04:05 Eosinophils # (Manual) 0.0 K/mm3 (0.0-0.4) 05/12/21 04:05 Basophils # (Manual) 0.0 K/mm3 (0.0-0.1) 05/12/21 04:05 Metamyelocytes # 0.0 K/mm3 05/12/21 04:05 Myelocytes # 0.0 K/mm3 05/12/21 04:05 Promyelocytes # 0.0 K/mm3 05/12/21 04:05 Blast Cells # 0.0 K/mm3 05/12/21 04:05 WBC Morphology Not Reportable 05/12/21 04:05 Hypersegmented Neuts Not Reportable 05/12/21 04:05 Hyposegmented Neuts Not Reportable 05/12/21 04:05 Hypogranular Neuts Not Reportable 05/12/21 04:05 Smudge Cells Not Reportable 05/12/21 04:05 Toxic Granulation Not Reportable 05/12/21 04:05 Toxic Vacuolation Not Reportable 05/12/21 04:05 Dohle Bodies Not Reportable 05/12/21 04:05 Pelger-Huet Anomaly Not Reportable 05/12/21 04:05 Janelle Rods Not Reportable 05/12/21 04:05 Platelet Estimate Consistent w auto 05/12/21 04:05 Clumped Platelets Not Reportable 05/12/21 04:05 Plt Clumps, EDTA Not Reportable 05/12/21 04:05 Large Platelets Not Reportable 05/12/21 04:05 Giant Platelets Not Reportable 05/12/21 04:05 Platelet Satelliting Not Reportable 05/12/21 04:05 Plt Morphology Comment Not Reportable 05/12/21 04:05 RBC Morphology Normal 05/12/21 04:05 Dimorphic RBCs Not Reportable 05/12/21 04:05 Polychromasia Not Reportable 05/12/21 04:05 Hypochromasia Not Reportable 05/12/21 04:05 Poikilocytosis Not Reportable 05/12/21 04:05 Anisocytosis Not Reportable 05/12/21 04:05 Microcytosis Not Reportable 05/12/21 04:05 Macrocytosis Not Reportable 05/12/21 04:05 Spherocytes Not Reportable 05/12/21 04:05 Pappenheimer Bodies Not Reportable 05/12/21 04:05 Sickle Cells Not Reportable 05/12/21 04:05 Target Cells Not Reportable 05/12/21 04:05 Tear Drop Cells Not Reportable 05/12/21 04:05 Ovalocytes Not Reportable 05/12/21 04:05 Helmet Cells Not Reportable 05/12/21 04:05 Ahuja-Elsie Bodies Not Reportable 05/12/21 04:05 Alliance Rings Not Reportable 05/12/21 04:05 Crow Cells Not Reportable 05/12/21 04:05 Bite Cells Not Reportable 05/12/21 04:05 Crenated Cell Not Reportable 05/12/21 04:05 Elliptocytes Not Reportable 05/12/21 04:05 Acanthocytes (Spur) Not Reportable 05/12/21 04:05 Rouleaux Not Reportable 05/12/21 04:05 Hemoglobin C Crystals Not Reportable 05/12/21 04:05 Schistocytes Not Reportable 05/12/21 04:05 Malaria parasites Not Reportable 05/12/21 04:05 Justin Bodies Not Reportable 05/12/21 04:05 Hem Pathologist Commnt No 05/12/21 04:05 D-Dimer 488.49 ng/mlDDU (0-234) H 06/05/21 05:26 ABG pH 7.403 pH Units (7.350-7.450) 05/14/21 02:23 POC ABG pCO2 45.4 mmHg (32.0-48.0) 05/03/21 04:49 ABG pCO2 50.2 mm Hg 05/14/21 02:23 POC ABG pO2 65.3 mmHg (83-108) L 05/03/21 04:49 ABG pO2 130.3 mm Hg (80.0-90.0) H 05/14/21 02:23 POC ABG HCO3 18.5 05/03/21 04:49 ABG HCO3 30.6 mmol/L (20.0-26.0) H 05/14/21 02:23 ABG O2 Saturation 98.5 % (95.0-99.0) 05/14/21 02:23 ABG O2 Content 17.9 (0.0-44) 05/14/21 02:23 POC ABG Base Excess -8.9 05/03/21 04:49 ABG Base Excess 4.9 mmol/L (-2.0-3.0) H 05/14/21 02:23 ABG Hemoglobin 13.0 gm/dl (12.0-16.0) 05/14/21 02:23 ABG Oxyhemoglobin 87.8 (94-98) L 05/03/21 04:49 ABG Carboxyhemoglobin 1.4 % (0.0-5.0) 05/14/21 02:23 ABG Methemoglobin 0.6 % (0.0-1.5) 05/14/21 02:23 ABG Sodium 133.0 mmol/L (136.0-145.0) L 05/03/21 04:49 ABG Potassium 3.9 mmol/L (3.40-4.50) 05/03/21 04:49 ABG Chloride 97.0 mmol/L (98-107) L 05/03/21 04:49 ABG Glucose 403 mg/dL (65-95) H 05/03/21 04:49 Oxyhemoglobin 96.5 % (95.0-99.0) 05/14/21 02:23 Carboxyhemoglobin 0.6 (0.5-1.5) 05/03/21 04:49 FiO2 90 % 05/14/21 02:23 FiO2 % 100.0 05/03/21 04:49 Sodium 137 mmol/L (137-145) 06/05/21 05:26 Potassium 4.2 mmol/L (3.6-5.0) 06/05/21 05:26 Chloride 99.5 mmol/L (98-107) 06/05/21 05:26 Carbon Dioxide 27 mmol/L (22-30) 06/05/21 05:26 Anion Gap 15 mmol/L 06/05/21 05:26 BUN 17 mg/dL (7-17) 06/05/21 05:26 Creatinine 0.2 mg/dL (0.6-1.2) L 06/05/21 05:26 Estimated GFR > 60 ml/min 06/05/21 05:26 BUN/Creatinine Ratio 85 % 06/05/21 05:26 Glucose 198 mg/dL (65-100) H 06/05/21 05:26 POC Glucose 120 mg/dL (70-105) H 06/06/21 07:57 Hemoglobin A1c 8.5 % (4-6) H 04/18/21 07:36 Calcium 9.0 mg/dL (8.4-10.2) 06/05/21 05:26 Phosphorus 3.60 mg/dL (2.5-4.5) 05/06/21 05:00 Magnesium 2.00 mg/dL (1.7-2.3) 05/06/21 05:00 Ferritin 187.7 ng/mL (10.0-200.0) 06/05/21 05:26 Total Bilirubin 0.30 mg/dL (0.1-1.2) 06/02/21 05:34 AST 22 units/L (5-40) 06/02/21 05:34 ALT 69 units/L (7-56) H 06/02/21 05:34 Alkaline Phosphatase 66 units/L (35-129) 06/02/21 05:34 Lactate Dehydrogenase 475 units/L (91-180) H 06/05/21 05:26 C-Reactive Protein 0.10 mg/dL (0.00-1.30) 06/05/21 05:26 Total Protein 6.1 g/dL (6.3-8.2) L 06/02/21 05:34 Albumin 3.2 g/dL (3.9-5) L 06/02/21 05:34 Albumin/Globulin Ratio 1.1 % 06/02/21 05:34 Triglycerides < 9 mg/dL (2-149) 05/03/21 04:30 Procalcitonin < 0.05 ng/mL (<0.15) 05/23/21 09:50 Arterial Blood Glucose 403 mg/dL (65-95) H 05/03/21 04:49 Arterial Blood Ionized Calcium 4.9 mg/dL (4.6-5.3) 05/03/21 04:49 Coronavirus (PCR) Positive (Negative) A 06/05/21 08:30 Amos/IV: Voiding Method Bedpan Active Medications - Current Medications Current Medications: Generic Name Dose Route Start Last Admin Trade Name Freq PRN Reason Stop Dose Admin Acetaminophen 650 mg 04/16/21 14:00 06/05/21 23:51 Acetaminophen 325 Mg Tab PO 650 mg Q4H PRN Administration Pain MILD(1-3)/Fever >100.5/[place] Albuterol 2.5 mg 04/16/21 13:39 04/21/21 20:39 Albuterol 2.5 Mg/3 Ml Nebu IH 2.5 mg Q4HRT PRN Administration Shortness Of Breath Artificial Tears 2 drops 04/28/21 18:15 05/29/21 13:25 Hypromellose 0.5% Ophth Soln 15 Ml OU 2 drops Q4H PRN Administration Dry Eye(s) Ascorbic Acid 500 mg 04/24/21 10:00 06/05/21 09:11 Ascorbic Acid 500 Mg Tab PO 500 mg QDAY TUTU Administration Cholecalciferol 1,000 unit 04/17/21 10:00 06/05/21 09:11 Cholecalciferol (Vit D3) 1000 Unit (25 Mcg) Tab PO 1,000 unit QDAY TUTU Administration Clonazepam 1 mg 05/29/21 08:06 06/02/21 21:36 Clonazepam 0.5 Mg Tab PO 1 mg Q8H PRN Administration Anxiety Dextrose 50 ml 04/18/21 07:30 04/28/21 09:59 Dextrose 50% In Water (25gm) 50 Ml Syringe IV 50 ml Q30MIN PRN Administration Hypoglycemia Protocol Docusate Sodium 100 mg 04/30/21 10:00 06/05/21 23:28 Docusate Sodium 100 Mg Cap PO Not Given BID TUTU Enoxaparin Sodium 40 mg 05/19/21 22:00 06/05/21 23:27 Enoxaparin 40 Mg/0.4 Ml Inj SUB-Q 40 mg QDAY@2200 TUTU Administration Protocol Famotidine 20 mg 05/07/21 22:00 06/05/21 23:29 Famotidine 20 Mg Tab PO 20 mg BID [facility] Administration Insulin Glargine 25 units 05/04/21 11:05 06/05/21 09:11 Insulin Glargine 100 Units/Ml SUB-Q 25 units DAILY TUTU Administration Insulin Glargine 8 units 06/04/21 18:07 06/05/21 23:49 Insulin Glargine 100 Units/Ml SUB-Q 8 units QHS [facility] Administration Insulin Human Lispro 0 unit 05/18/21 12:00 06/06/21 08:47 Insulin Lispro 100 Unit/Ml SUB-Q Not Given ACHS [facility] Protocol Lorazepam 1 mg 05/25/21 14:40 06/03/21 15:32 Lorazepam 2 Mg/Ml Vial IV 1 mg Q6H PRN Administration Agitation Methylprednisolone Sodium Succinate 40 mg 05/31/21 11:32 06/06/21 07:30 Methylprednisolone Sod Succinate 125 Mg/2 Ml Inj IV 40 mg Q8HR [facility] Administration Multi-Ingred Cream/Lotion/Oil/Oint 1 applic 05/10/21 14:00 06/06/21 07:00 Mineral Oil/Petrolatum, White Ophth Oint 3.5 Gm OU Not Given Q8HR [facility] Ondansetron HCl 4 mg 04/16/21 14:00 05/30/21 10:07 Ondansetron 4 Mg/2 Ml Inj IV 4 mg Q8H PRN Administration Nausea And Vomiting Senna 17.2 mg 05/02/21 22:00 06/05/21 22:00 Sennosides 8.6 Mg Tab PO Not Given QHS [facility] Sodium Chloride 10 ml 04/16/21 22:00 06/05/21 23:30 Sodium Chloride 0.9% 10 Ml Flush Syringe IV 10 ml BID TUTU Administration Sodium Chloride 10 ml 04/16/21 13:39 05/22/21 15:21 Sodium Chloride 0.9% 10 Ml Flush Syringe IV 10 ml PRN PRN Administration LINE FLUSH Zinc Sulfate 220 mg 04/16/21 22:00 06/05/21 23:31 Zinc Sulfate 220 Mg Cap PO 220 mg BID [facility] Administration Zolpidem Tartrate 10 mg 05/26/21 08:56 06/05/21 23:51 Zolpidem 5 Mg Tab PO 10 mg QHS PRN Administration Insomnia Nutrition/Malnutrition Assess - Dietary Evaluation Nutrition/Malnutrition Findings: Nutrition Notes Start: 04/23/21 07:41 Freq: Status: Active Protocol: Document 06/04/21 11:07 (Rec: 06/04/21 11:07 [id number]) Nutrition Notes Initial or Follow up Brief Note Current Diagnosis Respiratory Failure Other Pertinent Diagnosis oral thrush, COVID-19 pneu Current Diet GI soft Subjective/Other Information Pt continues to eat 75-100% of meals. Nutrition Intervention Revisit per MD consult or patient Sign Off request:
[2021-06-06] MEDS: CHOLECALCIFEROL (VIT D3) 1000 UNIT (25 mcg) TAB PO SCH (11:17)
[2021-06-06] MEDS: ZINC SULFATE 220 MG CAP PO SCH ×2 (11:17→23:21)
[2021-06-06] MEDS: FAMOTIDINE 20 MG TAB PO SCH ×2 (11:17→23:19)
[2021-06-06] MEDS: ASCORBIC ACID 500 MG TAB PO SCH (11:17)
[2021-06-06] MEDS: INSULIN GLARGINE 100 UNITS/ML SUB-Q SCH ×2 (11:17→23:19)
[2021-06-06] MEDS: DOCUSATE SODIUM 100 MG CAP PO SCH ×2 (11:17→23:18)
--- NOTE | 2021-06-06 12:39 | Cat Scan Report ---
CTA CHEST WITH IV CONTRAST INDICATION: COVID-19/severe hypoxia/elevated D-dimers/r/o PE 100 ML OMNI 350 . TECHNIQUE: Axial CT images were obtained through the chest after injection of 100 mL Omnipaque 350 IV contrast. 3 plane MIP reconstructions were produced. All CT scans at this location are performed using CT dose reduction for ALARA by means of automated exposure control. COMPARISON: None available. FINDINGS: Pulmonary Arteries: No pulmonary emboli. Lungs: There is diffuse bilateral groundglass opacification in both lungs. Trachea and Bronchi: No significant abnormality. Heart and Pericardium: No significant abnormality. Vasculature: No significant abnormality. Lymphatics: No lymphadenopathy. Additional Findings: None. Upper Abdomen: No acute findings. Skeletal Structures: No acute findings or aggressive bone lesions. IMPRESSION: 1. No CT evidence for pulmonary embolism. 2. Diffuse bilateral groundglass opacities in both lungs that can indicate a combination of edema and /or pneumonia. ARDS could also produce this appearance. Signer Name: Luis Clark MD Signed: 06/06/2021 12:34 PM Workstation Name: [id number]
[2021-06-06] MEDS ORDERED: FUROSEMIDE 40 MG/4 ML INJ IV ONE (18:00)
--- NOTE | 2021-06-06 19:10 | Event Note ---
Date: 06/06/21 I spoke with the Khmer speaking patient's daughter over the patient's cell phone at the bedside, and conversed with the patient, She had numerous questions, I answered all of them, I encouraged the daughter to call back if she has any new concerns.
--- NOTE | 2021-06-06 22:08 | Vascular Lab Report ---
DUPLEX DOPPLER LOWER EXTREMITY VEINS, BILATERAL INDICATION / CLINICAL INFORMATION: Covid/hypoxia/high D-dimers/rule out DVT. TECHNIQUE: Duplex doppler imaging was performed through the veins of both lower extremities using hardik ous compression and other maneuvers. COMPARISON: None available. FINDINGS: RIGHT COMMON FEMORAL VEIN: Negative. RIGHT FEMORAL VEIN: Negative. RIGHT POPLITEAL VEIN: Negative. RIGHT CALF VEINS: Negative. LEFT COMMON FEMORAL VEIN: Negative. LEFT FEMORAL VEIN: Negative. LEFT POPLITEAL VEIN: Negative. LEFT CALF VEINS: Negative. ADDITIONAL FINDINGS: None. IMPRESSION: 1. No sonographic evidence for DVT in either lower extremity. Signer Name: Braden Cochran MD Signed: 06/06/2021 10:03 PM Workstation Name: [id number]
[2021-06-06] MEDS: ENOXAPARIN 40 MG/0.4 ML INJ SUB-Q SCH (23:18)
[2021-06-06] MEDS: SENNOSIDES 8.6 MG TAB PO SCH (23:20)
[2021-06-06] MEDS: ZOLPIDEM 5 MG TAB PO PRN (23:25)
[2021-06-06] MEDS: ACETAMINOPHEN 325 MG TAB PO PRN (23:25)
[2021-06-07] MEDS: MINERAL OIL/PETROLATUM, WHITE OPHTH OINT 3.5 GM OU SCH ×3 (06:05→22:00)
[2021-06-07] MEDS: methylPREDNISolone Sod Succinate 125 MG/2 ML INJ IV SCH ×3 (06:15→23:34)
[2021-06-07] MEDS: INSULIN LISPRO 100 UNIT/ML SUB-Q SCH ×4 (07:30→23:33)
[2021-06-07] MEDS: DOCUSATE SODIUM 100 MG CAP PO SCH ×2 (12:44→23:35)
[2021-06-07] MEDS: CHOLECALCIFEROL (VIT D3) 1000 UNIT (25 mcg) TAB PO SCH (12:44)
[2021-06-07] MEDS: ZINC SULFATE 220 MG CAP PO SCH ×2 (12:44→23:35)
[2021-06-07] MEDS: FAMOTIDINE 20 MG TAB PO SCH (12:44)
[2021-06-07] MEDS: ASCORBIC ACID 500 MG TAB PO SCH (12:44)
[2021-06-07] MEDS: FUROSEMIDE 40 MG/4 ML INJ IV SCH (12:45)
[2021-06-07] MEDS: INSULIN GLARGINE 100 UNITS/ML SUB-Q SCH ×2 (13:03→23:33)
--- NOTE | 2021-06-07 15:38 | Progress Note ---
Assessment and Plan Assessment and plan: COVID-19 positive 04/17/2021 COVID-19 test - 05/21/2021 Gomes 19 test positive 06/05/21 CTA chest: 06/06/2021; no CT evidence of PE, diffuse bilateral groundglass opacities in both lungs that can indicate a combination of edema and/or pneumonia ARDS could also produce this appearance Lower extremity venous Doppler: 05/01/2021 - negative for DVT Patient remains on high flow nasal cannula oxygen 35 L/70% FiO2/96 O2 sats I communicated frequently through an German speaking patient's friend over her iPhone at the bedside. And updated patient's condition --Acute respiratory failure with hypoxia/COVID-19 infection Patient is currently requiring high flow nasal cannula oxygen 35 L/80% FiO2/O2 sats 98% and intermittent BiPAP, patient slightly anxious wean as tolerated, Prone positioning, Home O2 evaluation Continue management per COVID-19 guidelines CTA ; negative PE ,however diffuse bilateral groundglass opacities edema vs ARDS We will treat with low-dose Lasix, pulmonary following --Sepsis secondary to COVID-19 pneumonia; Continue zinc sulfate, vitamin C, oral vitamin D3 Patient is on steroid, completed remdesivir and Actemra Prone positioning, home O2 evaluation Follow inflammatory markers ID following --oral candidiasis Continue oral nystatin solution --hyponatremia Resolved, closely monitor electrolytes sodium is 142 --coagulopathy; -Subcu heparin -Trend CBC-no need for transfusion. -Transfuse for hemoglobin less than 7 -Bilateral lower extremity Doppler ultrasounds negative for DVT ; no CTA or VQ scan to rule out PE --hyperglycemia Accu-Cheks stable at this time. -Lantus HS -SSI AC/HS -Avoid hypoglycemia --moderate protein calorie malnutrition Nutrition supplement, supportive care Nutrition consult if not already done --generalized anxiety Likely due to severe hypoxia Has shown some signs of improvement over the past 24 hours able to wean oxygen some. -Follows commands and RAY -PRN pain and anxiety meds -Patient is Amharic-speaking but understands German Added Ambien for insomnia. Anxiety resolving. add klonipin for anxiety --viral conjunctivitis right eye: Resolved would like drops for her eyes again. States eyes are dry. -Right eye- s/p 5 d course of cipro drops. suspect viral conjunctivitis. lubricating eye drops. supportive management. Erythema has resolved --septic shock s/p vasopressors .resolved Blood pressures reasonable level. Continue supportive care --DVT prophylaxis; Subcu Lovenox --DC planning; Per case management, , home O2 evaluation, possible home health upon discharge if needed Subjective Date of service: 06/03/21 Principal diagnosis: Covid-19 Interval history: 50 YO Female with GERD, Obesity, HLD presents to ED for evaluation. Patient reports "I cannot breathe". Patient states that she has experienced subjective fever, shortness of breath, malaise, body aches, dry cough, and shortness of breath over the past 1 week with progressively worsening symptoms over the same timeframe. EMS was notified and upon arrival the patient was found to be in distress and subsequent transported to [facility] for further care and evaluation of the aforementioned symptoms. The patient was seen and evaluated in the emergency department. All lab and imaging studies reviewed. Patient found to have a pulse oximetry of 86% with exertion on room air which is consistent with acute hypoxemic respiratory failure. Patient with chest x-ray which revealed bilateral pneumonia. Patient admitted to medical floor and initiated him on pn eumonia protocol as well as coronavirus protocol. Patient knowledges fever but denies chills, chest pain, palpitation, skin rash, recent ill contacts, or known exposure to COVID-19. Prior admission on 01/21/2017 reviewed. All medication listed at time of admission has been reconciled. Patient is unvaccinated for coronavirus infection. 06/01/2021 Patient admitted for acute respiratory failure with hypoxia Weaning in progress Pulmonary consult appreciated COVID-pneumonia On high flow nasal cannula oxygen at 35 L. Otherwise doing well Patient wants a outreach and education social worker 06/02/2021 Patient still on high flow nasal cannula oxygen 35 L high flow and 80% 06/03/2021; Patient continues to require high flow nasal cannula oxygen 35 L, BiPAP, wean as tolerated 06/04/2021; Patient is very anxious, remains on high flow nasal cannula oxygen 30 5L/80% FiO2/98% O2 sats Wean as tolerated, pulmonary following, recheck COVID-19 test Prone positioning strongly advised, continue supportive care Worsening D-dimers in the setting of hypoxia, consider CTA chest to rule out PE 06/05/2021; COVID-19 test will be repeated tomorrow[did not get proper sample today] Continues to be on high flow oxygen, mild distress 06/06/2021 CTA chest; negative for PE, ARDS-like picture versus edema We will give low-dose daily Lasix, and monitor closely I spoke with patient's daughter bilingual in German over patient's cell phone at the bedside, and conversed with the patient, She had numerous questions answered all of them, I encouraged her to call back if she has new concerns 06/07/2021; patient complains of constipation Continues to be on high flow oxygen 30 L/85% FiO2/95% O2 sats Milk of magnesia and stool softeners I discussed with patient's daughter Ms. Alatorre today and updated patient's condition\\answered all her questions History Interval history: I have seen and examined the patient in the morning Patient's chart and medications reviewed No new complaints, remains on high flow oxygen Complains of constipation Hospitalist Physical - Constitutional Vitals: Temp Pulse Resp BP Pulse Ox 98.2 F 75 18 156/70 98 06/07/21 13:06 06/07/21 13:06 06/07/21 13:06 06/07/21 13:06 06/07/21 13:06 General appearance: Present: mild distress, well-nourished, other (On high flow nasal cannula oxygen 35 L) - EENT Eyes: Present: PERRL, EOM intact - Neck Neck: Present: supple, normal ROM - Respiratory Respiratory effort: normal Respiratory: bilateral: diminished, negative: rales, rhonchi, wheezing - Cardiovascular Rhythm: regular Heart Sounds: Present: S1 & S2 - Extremities Extremities: no ischemia, No edema - Abdominal General gastrointestinal: soft, non-tender, non-distended, normal bowel sounds - Integumentary Integumentary: Present: clear, warm - Psychiatric Psychiatric: appropriate mood/affect, cooperative - Neurologic Neurologic: CNII-XII intact, moves all extremities Results - Labs CBC & Chem 7: 06/02/21 05:34 06/05/21 05:26 Labs: Laboratory Last Values WBC 6.2 K/mm3 (4.5-11.0) 06/02/21 05:34 RBC 4.29 M/mm3 (3.65-5.03) 06/02/21 05:34 Hgb 13.6 gm/dl (10.1-14.3) 06/02/21 05:34 Hct 40.5 % (30.3-42.9) 06/02/21 05:34 MCV 95 fl (79-97) 06/02/21 05:34 MCH 32 pg (28-32) 06/02/21 05:34 MCHC 34 % (30-34) 06/02/21 05:34 RDW 21.3 % (13.2-15.2) H 06/02/21 05:34 Plt Count 204 K/mm3 (140-440) 06/02/21 05:34 Lymph % (Auto) 9.6 % (13.4-35.0) L 06/02/21 05:34 Harlan % (Auto) 3.9 % (0.0-7.3) 06/02/21 05:34 Eos % (Auto) 0.0 % (0.0-4.3) 06/02/21 05:34 Baso % (Auto) 0.3 % (0.0-1.8) 06/02/21 05:34 Lymph # (Auto) 0.6 K/mm3 (1.2-5.4) L 06/02/21 05:34 Harlan # (Auto) 0.2 K/mm3 (0.0-0.8) 06/02/21 05:34 Eos # (Auto) 0.0 K/mm3 (0.0-0.4) 06/02/21 05:34 Baso # (Auto) 0.0 K/mm3 (0.0-0.1) 06/02/21 05:34 Add Manual Diff Complete 05/12/21 04:05 Total Counted 100 05/12/21 04:05 Seg Neutrophils % 86.2 % (40.0-70.0) H 06/02/21 05:34 Seg Neuts % (Manual) 94.0 % (40.0-70.0) H 05/12/21 04:05 Band Neutrophils % 1.0 % 05/12/21 04:05 Lymphocytes % (Manual) 4.0 % (13.4-35.0) L 05/12/21 04:05 Monocytes % (Manual) 1.0 % (0.0-7.3) 05/12/21 04:05 Nucleated RBC % Not Reportable 05/12/21 04:05 Seg Neutrophils # 5.4 K/mm3 (1.8-7.7) 06/02/21 05:34 Seg Neutrophils # Man 6.4 K/mm3 (1.8-7.7) 05/12/21 04:05 Band Neutrophils # 0.1 K/mm3 05/12/21 04:05 Lymphocytes # (Manual) 0.3 K/mm3 (1.2-5.4) L 05/12/21 04:05 Abs React Lymphs (Man) 0.0 K/mm3 05/12/21 04:05 Monocytes # (Manual) 0.1 K/mm3 (0.0-0.8) 05/12/21 04:05 Eosinophils # (Manual) 0.0 K/mm3 (0.0-0.4) 05/12/21 04:05 Basophils # (Manual) 0.0 K/mm3 (0.0-0.1) 05/12/21 04:05 Metamyelocytes # 0.0 K/mm3 05/12/21 04:05 Myelocytes # 0.0 K/mm3 05/12/21 04:05 Promyelocytes # 0.0 K/mm3 05/12/21 04:05 Blast Cells # 0.0 K/mm3 05/12/21 04:05 WBC Morphology Not Reportable 05/12/21 04:05 Hypersegmented Neuts Not Reportable 05/12/21 04:05 Hyposegmented Neuts Not Reportable 05/12/21 04:05 Hypogranular Neuts Not Reportable 05/12/21 04:05 Smudge Cells Not Reportable 05/12/21 04:05 Toxic Granulation Not Reportable 05/12/21 04:05 Toxic Vacuolation Not Reportable 05/12/21 04:05 Dohle Bodies Not Reportable 05/12/21 04:05 Pelger-Huet Anomaly Not Reportable 05/12/21 04:05 Janelle Rods Not Reportable 05/12/21 04:05 Platelet Estimate Consistent w auto 05/12/21 04:05 Clumped Platelets Not Reportable 05/12/21 04:05 Plt Clumps, EDTA Not Reportable 05/12/21 04:05 Large Platelets Not Reportable 05/12/21 04:05 Giant Platelets Not Reportable 05/12/21 04:05 Platelet Satelliting Not Reportable 05/12/21 04:05 Plt Morphology Comment Not Reportable 05/12/21 04:05 RBC Morphology Normal 05/12/21 04:05 Dimorphic RBCs Not Reportable 05/12/21 04:05 Polychromasia Not Reportable 05/12/21 04:05 Hypochromasia Not Reportable 05/12/21 04:05 Poikilocytosis Not Reportable 05/12/21 04:05 Anisocytosis Not Reportable 05/12/21 04:05 Microcytosis Not Reportable 05/12/21 04:05 Macrocytosis Not Reportable 05/12/21 04:05 Spherocytes Not Reportable 05/12/21 04:05 Pappenheimer Bodies Not Reportable 05/12/21 04:05 Sickle Cells Not Reportable 05/12/21 04:05 Target Cells Not Reportable 05/12/21 04:05 Tear Drop Cells Not Reportable 05/12/21 04:05 Ovalocytes Not Reportable 05/12/21 04:05 Helmet Cells Not Reportable 05/12/21 04:05 Ahuja-[place] Bodies Not Reportable 05/12/21 04:05 [place] Rings Not Reportable 05/12/21 04:05 [place] Cells Not Reportable 05/12/21 04:05 Bite Cells Not Reportable 05/12/21 04:05 Crenated Cell Not Reportable 05/12/21 04:05 Elliptocytes Not Reportable 05/12/21 04:05 Acanthocytes (Spur) Not Reportable 05/12/21 04:05 Rouleaux Not Reportable 05/12/21 04:05 Hemoglobin C Crystals Not Reportable 05/12/21 04:05 Schistocytes Not Reportable 05/12/21 04:05 Malaria parasites Not Reportable 05/12/21 04:05 Justin Bodies Not Reportable 05/12/21 04:05 Hem Pathologist Commnt No 05/12/21 04:05 D-Dimer 488.49 ng/mlDDU (0-234) H 06/05/21 05:26 ABG pH 7.403 pH Units (7.350-7.450) 05/14/21 02:23 POC ABG pCO2 45.4 mmHg (32.0-48.0) 05/03/21 04:49 ABG pCO2 50.2 mm Hg 05/14/21 02:23 POC ABG pO2 65.3 mmHg (83-108) L 05/03/21 04:49 ABG pO2 130.3 mm Hg (80.0-90.0) H 05/14/21 02:23 POC ABG HCO3 18.5 05/03/21 04:49 ABG HCO3 30.6 mmol/L (20.0-26.0) H 05/14/21 02:23 ABG O2 Saturation 98.5 % (95.0-99.0) 05/14/21 02:23 ABG O2 Content 17.9 (0.0-44) 05/14/21 02:23 POC ABG Base Excess -8.9 05/03/21 04:49 ABG Base Excess 4.9 mmol/L (-2.0-3.0) H 05/14/21 02:23 ABG Hemoglobin 13.0 gm/dl (12.0-16.0) 05/14/21 02:23 ABG Oxyhemoglobin 87.8 (94-98) L 05/03/21 04:49 ABG Carboxyhemoglobin 1.4 % (0.0-5.0) 05/14/21 02:23 ABG Methemoglobin 0.6 % (0.0-1.5) 05/14/21 02:23 ABG Sodium 133.0 mmol/L (136.0-145.0) L 05/03/21 04:49 ABG Potassium 3.9 mmol/L (3.40-4.50) 05/03/21 04:49 ABG Chloride 97.0 mmol/L (98-107) L 05/03/21 04:49 ABG Glucose 403 mg/dL (65-95) H 05/03/21 04:49 Oxyhemoglobin 96.5 % (95.0-99.0) 05/14/21 02:23 Carboxyhemoglobin 0.6 (0.5-1.5) 05/03/21 04:49 FiO2 90 % 05/14/21 02:23 FiO2 % 100.0 05/03/21 04:49 Sodium 137 mmol/L (137-145) 06/05/21 05:26 Potassium 4.2 mmol/L (3.6-5.0) 06/05/21 05:26 Chloride 99.5 mmol/L (98-107) 06/05/21 05:26 Carbon Dioxide 27 mmol/L (22-30) 06/05/21 05:26 Anion Gap 15 mmol/L 06/05/21 05:26 BUN 17 mg/dL (7-17) 06/05/21 05:26 Creatinine 0.2 mg/dL (0.6-1.2) L 06/05/21 05:26 Estimated GFR > 60 ml/min 06/05/21 05:26 BUN/Creatinine Ratio 85 % 06/05/21 05:26 Glucose 198 mg/dL (65-100) H 06/05/21 05:26 POC Glucose 219 mg/dL (70-105) H 06/07/21 11:58 Hemoglobin A1c 8.5 % (4-6) H 04/18/21 07:36 Calcium 9.0 mg/dL (8.4-10.2) 06/05/21 05:26 Phosphorus 3.60 mg/dL (2.5-4.5) 05/06/21 05:00 Magnesium 2.00 mg/dL (1.7-2.3) 05/06/21 05:00 Ferritin 187.7 ng/mL (10.0-200.0) 06/05/21 05:26 Total Bilirubin 0.30 mg/dL (0.1-1.2) 06/02/21 05:34 AST 22 units/L (5-40) 06/02/21 05:34 ALT 69 units/L (7-56) H 06/02/21 05:34 Alkaline Phosphatase 66 units/L (35-129) 06/02/21 05:34 Lactate Dehydrogenase 475 units/L (91-180) H 06/05/21 05:26 C-Reactive Protein 0.10 mg/dL (0.00-1.30) 06/05/21 05:26 Total Protein 6.1 g/dL (6.3-8.2) L 06/02/21 05:34 Albumin 3.2 g/dL (3.9-5) L 06/02/21 05:34 Albumin/Globulin Ratio 1.1 % 06/02/21 05:34 Triglycerides < 9 mg/dL (2-149) 05/03/21 04:30 Procalcitonin < 0.05 ng/mL (<0.15) 05/23/21 09:50 Arterial Blood Glucose 403 mg/dL (65-95) H 05/03/21 04:49 Arterial Blood Ionized Calcium 4.9 mg/dL (4.6-5.3) 05/03/21 04:49 Coronavirus (PCR) Positive (Negative) A 06/05/21 08:30 Amos/IV: Voiding Method External Female Catheter Active Medications - Current Medications Current Medications: Generic Name Dose Route Start Last Admin Trade Name Freq PRN Reason Stop Dose Admin Acetaminophen 650 mg 04/16/21 14:00 06/06/21 23:25 Acetaminophen 325 Mg Tab PO 650 mg Q4H PRN Administration Pain MILD(1-3)/Fever >100.5/[place] Albuterol 2.5 mg 04/16/21 13:39 04/21/21 20:39 Albuterol 2.5 Mg/3 Ml Nebu IH 2.5 mg Q4HRT PRN Administration Shortness Of Breath Artificial Tears 2 drops 04/28/21 18:15 05/29/21 13:25 Hypromellose 0.5% Ophth Soln 15 Ml OU 2 drops Q4H PRN Administration Dry Eye(s) Ascorbic Acid 500 mg 04/24/21 10:00 06/07/21 12:44 Ascorbic Acid 500 Mg Tab PO 500 mg QDAY TUTU Administration Cholecalciferol 1,000 unit 04/17/21 10:00 06/07/21 12:44 Cholecalciferol (Vit D3) 1000 Unit (25 Mcg) Tab PO 1,000 unit QDAY TUTU Administration Clonazepam 1 mg 05/29/21 08:06 06/02/21 21:36 Clonazepam 0.5 Mg Tab PO 1 mg Q8H PRN Administration Anxiety Dextrose 50 ml 04/18/21 07:30 04/28/21 09:59 Dextrose 50% In Water (25gm) 50 Ml Syringe IV 50 ml Q30MIN PRN Administration Hypoglycemia Protocol Docusate Sodium 100 mg 04/30/21 10:00 06/07/21 12:44 Docusate Sodium 100 Mg Cap PO 100 mg BID TUTU Administration Enoxaparin Sodium 40 mg 05/19/21 22:00 06/06/21 23:18 Enoxaparin 40 Mg/0.4 Ml Inj SUB-Q 40 mg QDAY@2200 TUTU Administration Protocol Famotidine 20 mg 05/07/21 22:00 06/07/21 12:44 Famotidine 20 Mg Tab PO 20 mg BID TUTU Administration Furosemide 40 mg 06/07/21 10:00 06/07/21 12:45 Furosemide 40 Mg/4 Ml Inj IV 40 mg QDAY TUTU Administration Insulin Glargine 25 units 05/04/21 11:05 06/07/21 13:03 Insulin Glargine 100 Units/Ml SUB-Q 25 units DAILY TUTU Administration Insulin Glargine 8 units 06/04/21 18:07 06/06/21 23:19 Insulin Glargine 100 Units/Ml SUB-Q Not Given QHS [facility] Insulin Human Lispro 0 unit 05/18/21 12:00 06/07/21 12:45 Insulin Lispro 100 Unit/Ml SUB-Q 4 unit ACHS [facility] Administration Protocol Lorazepam 1 mg 05/25/21 14:40 06/03/21 15:32 Lorazepam 2 Mg/Ml Vial IV 1 mg Q6H PRN Administration Agitation Methylprednisolone Sodium Succinate 40 mg 05/31/21 11:32 06/07/21 06:15 Methylprednisolone Sod Succinate 125 Mg/2 Ml Inj IV 40 mg Q8HR [facility] Administration Multi-Ingred Cream/Lotion/Oil/Oint 1 applic 05/10/21 14:00 06/07/21 15:06 Mineral Oil/Petrolatum, White Ophth Oint 3.5 Gm OU Not Given Q8HR [facility] Ondansetron HCl 4 mg 04/16/21 14:00 05/30/21 10:07 Ondansetron 4 Mg/2 Ml Inj IV 4 mg Q8H PRN Administration Nausea And Vomiting Senna 17.2 mg 05/02/21 22:00 06/06/21 23:20 Sennosides 8.6 Mg Tab PO Not Given QHS [facility] Sodium Chloride 10 ml 04/16/21 22:00 06/07/21 12:45 Sodium Chloride 0.9% 10 Ml Flush Syringe IV 10 ml BID TUTU Administration Sodium Chloride 10 ml 04/16/21 13:39 05/22/21 15:21 Sodium Chloride 0.9% 10 Ml Flush Syringe IV 10 ml PRN PRN Administration LINE FLUSH Zinc Sulfate 220 mg 04/16/21 22:00 06/07/21 12:44 Zinc Sulfate 220 Mg Cap PO 220 mg BID TUTU Administration Zolpidem Tartrate 10 mg 05/26/21 08:56 06/06/21 23:25 Zolpidem 5 Mg Tab PO 10 mg QHS PRN Administration Insomnia Nutrition/Malnutrition Assess - Dietary Evaluation Nutrition/Malnutrition Findings: Nutrition Notes Start: 04/23/21 07:41 Freq: Status: Active Protocol: Document 06/04/21 11:07 FABIAN (Rec: 06/04/21 11:07 FABIAN [id number]) Nutrition Notes Initial or Follow up Brief Note Current Diagnosis Respiratory Failure Other Pertinent Diagnosis oral thrush, COVID-19 pneu Current Diet GI soft Subjective/Other Information Pt continues to eat 75-100% of meals. Nutrition Intervention Revisit per MD consult or patient Sign Off request:
--- NOTE | 2021-06-07 15:39 | Event Note ---
Date: 06/07/21 I discussed with patient's daughter Ms. Alatorre today and updated patient's condition\answered all her questions
[2021-06-07] MEDS ORDERED: MAGNESIUM HYDROXIDE (MOM) ORAL LIQD UDC PO ONE (17:00)
[2021-06-07] MEDS: ENOXAPARIN 40 MG/0.4 ML INJ SUB-Q SCH (23:31)
[2021-06-07] MEDS: SENNOSIDES 8.6 MG TAB PO SCH (23:33)
[2021-06-07] MEDS: ACETAMINOPHEN 325 MG TAB PO PRN (23:43)
[2021-06-08] MEDS: MINERAL OIL/PETROLATUM, WHITE OPHTH OINT 3.5 GM OU SCH ×4 (06:00→22:01)
[2021-06-08] MEDS: methylPREDNISolone Sod Succinate 125 MG/2 ML INJ IV SCH ×3 (06:40→22:03)
[2021-06-08] MEDS: INSULIN LISPRO 100 UNIT/ML SUB-Q SCH ×4 (07:30→23:35)
[2021-06-08] MEDS: FUROSEMIDE 40 MG/4 ML INJ IV SCH (09:20)
[2021-06-08] MEDS: DOCUSATE SODIUM 100 MG CAP PO SCH ×2 (09:20→22:03)
[2021-06-08] MEDS: ZINC SULFATE 220 MG CAP PO SCH ×2 (09:20→22:03)
[2021-06-08] MEDS: ASCORBIC ACID 500 MG TAB PO SCH (09:20)
[2021-06-08] MEDS: CHOLECALCIFEROL (VIT D3) 1000 UNIT (25 mcg) TAB PO SCH (09:20)
[2021-06-08] MEDS: INSULIN GLARGINE 100 UNITS/ML SUB-Q SCH ×2 (09:25→22:18)
--- NOTE | 2021-06-08 10:49 | Progress Note ---
Assessment and Plan Assessment and plan: COVID-19 positive 04/17/2021 COVID-19 test - 05/21/2021 Gomes 19 test positive 06/05/21 CTA chest: 06/06/2021; no CT evidence of PE, diffuse bilateral groundglass opacities in both lungs that can indicate a combination of edema and/or pneumonia ARDS could also produce this appearance Lower extremity venous Doppler: 05/01/2021 - negative for DVT Patient remains on high flow nasal cannula oxygen 35 L/70% FiO2/96 O2 sats I communicated frequently through an Syriac speaking patient's friend over her iPhone at the bedside. And updated patient's condition --Acute respiratory failure with hypoxia/COVID-19 infection Patient is currently requiring high flow nasal cannula oxygen 35 L/80% FiO2/O2 sats 98% and intermittent BiPAP, patient slightly anxious wean as tolerated, Prone positioning, Home O2 evaluation Continue management per COVID-19 guidelines CTA ; negative PE ,however diffuse bilateral groundglass opacities edema vs ARDS We will treat with low-dose Lasix, pulmonary following --Sepsis secondary to COVID-19 pneumonia; Continue zinc sulfate, vitamin C, oral vitamin D3 Patient is on steroid, completed remdesivir and Actemra Prone positioning, home O2 evaluation Follow inflammatory markers ID following --oral candidiasis Continue oral nystatin solution --hyponatremia Resolved, closely monitor electrolytes sodium is 142 --coagulopathy; -Subcu heparin -Trend CBC-no need for transfusion. -Transfuse for hemoglobin less than 7 -Bilateral lower extremity Doppler ultrasounds negative for DVT ; no CTA or VQ scan to rule out PE --hyperglycemia Accu-Cheks stable at this time. -Lantus HS -SSI AC/HS -Avoid hypoglycemia --moderate protein calorie malnutrition Nutrition supplement, supportive care Nutrition consult if not already done --generalized anxiety Likely due to severe hypoxia Has shown some signs of improvement over the past 24 hours able to wean oxygen some. -Follows commands and RAY -PRN pain and anxiety meds -Patient is Albanian-speaking but understands Syriac Added Ambien for insomnia. Anxiety resolving. add klonipin for anxiety --viral conjunctivitis right eye: Resolved would like drops for her eyes again. States eyes are dry. -Right eye- s/p 5 d course of cipro drops. suspect viral conjunctivitis. lubricating eye drops. supportive management. Erythema has resolved --septic shock s/p vasopressors .resolved Blood pressures reasonable level. Continue supportive care --DVT prophylaxis; Subcu Lovenox --DC planning; Per case management, , home O2 evaluation, possible home health upon discharge if needed Subjective Date of service: 06/03/21 Principal diagnosis: Covid-19 Interval history: 50 YO Female with GERD, Obesity, HLD presents to ED for evaluation. Patient reports "I cannot breathe". Patient states that she has experienced subjective fever, shortness of breath, malaise, body aches, dry cough, and shortness of breath over the past 1 week with progressively worsening symptoms over the same timeframe. EMS was notified and upon arrival the patient was found to be in distress and subsequent transported to [facility] for further care and evaluation of the aforementioned symptoms. The patient was seen and evaluated in the emergency department. All lab and imaging studies reviewed. Patient found to have a pulse oximetry of 86% with exertion on room air which is consistent with acute hypoxemic respiratory failure. Patient with chest x-ray which revealed bilateral pneumonia. Patient admitted to medical floor and initiated him on pn eumonia protocol as well as coronavirus protocol. Patient knowledges fever but denies chills, chest pain, palpitation, skin rash, recent ill contacts, or known exposure to COVID-19. Prior admission on 01/21/2017 reviewed. All medication listed at time of admission has been reconciled. Patient is unvaccinated for coronavirus infection. 06/01/2021 Patient admitted for acute respiratory failure with hypoxia Weaning in progress Pulmonary consult appreciated COVID-pneumonia On high flow nasal cannula oxygen at 35 L. 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 06/02/2021 Patient still on high flow nasal cannula oxygen 35 L high flow and 80% 06/03/2021; Patient continues to require high flow nasal cannula oxygen 35 L, BiPAP, wean as tolerated 06/04/2021; Patient is very anxious, remains on high flow nasal cannula oxygen 30 5L/80% FiO2/98% O2 sats Wean as tolerated, pulmonary following, recheck COVID-19 test Prone positioning strongly advised, continue supportive care Worsening D-dimers in the setting of hypoxia, consider CTA chest to rule out PE 06/05/2021; COVID-19 test will be repeated tomorrow[did not get proper sample today] Continues to be on high flow oxygen, mild distress 06/06/2021 CTA chest; negative for PE, ARDS-like picture versus edema We will give low-dose daily Lasix, and monitor closely I spoke with patient's daughter bilingual in Syriac over patient's cell phone at the bedside, and conversed with the patient, She had numerous questions answered all of them, I encouraged her to call back if she has new concerns 06/07/2021; patient complains of constipation Continues to be on high flow oxygen 30 L/85% FiO2/95% O2 sats Milk of magnesia and stool softeners I discussed with patient's daughter Ms. Alatorre today and updated patient's condition\\answered all her questions 06/08/2021; will continue current management History Interval history: I have seen and examined the patient at the bedside Isolation precautions and PPE protocols followed Patient feels slightly better No new complaints Remains on high flow oxygen Hospitalist Physical - Constitutional Vitals: Temp Pulse Resp BP Pulse Ox 97.2 F L 94 H 18 116/61 95 06/08/21 05:39 06/08/21 05:39 06/08/21 05:39 06/08/21 05:39 06/08/21 05:39 General appearance: Present: mild distress, well-nourished, other (On high flow nasal cannula oxygen 35 L) - EENT Eyes: Present: PERRL, EOM intact - Neck Neck: Present: supple, normal ROM - Respiratory Respiratory effort: normal Respiratory: bilateral: diminished, rhonchi, negative: rales, wheezing - Cardiovascular Rhythm: regular Heart Sounds: Present: S1 & S2 - Extremities Extremities: no ischemia, No edema - Abdominal General gastrointestinal: soft, non-tender, non-distended, normal bowel sounds - Integumentary Integumentary: Present: clear, warm - Psychiatric Psychiatric: appropriate mood/affect, cooperative - Neurologic Neurologic: CNII-XII intact, moves all extremities Results - Labs CBC & Chem 7: 06/02/21 05:34 06/05/21 05:26 Labs: Laboratory Last Values WBC 6.2 K/mm3 (4.5-11.0) 06/02/21 05:34 RBC 4.29 M/mm3 (3.65-5.03) 06/02/21 05:34 Hgb 13.6 gm/dl (10.1-14.3) 06/02/21 05:34 Hct 40.5 % (30.3-42.9) 06/02/21 05:34 MCV 95 fl (79-97) 06/02/21 05:34 MCH 32 pg (28-32) 06/02/21 05:34 MCHC 34 % (30-34) 06/02/21 05:34 RDW 21.3 % (13.2-15.2) H 06/02/21 05:34 Plt Count 204 K/mm3 (140-440) 06/02/21 05:34 Lymph % (Auto) 9.6 % (13.4-35.0) L 06/02/21 05:34 Dale % (Auto) 3.9 % (0.0-7.3) 06/02/21 05:34 Eos % (Auto) 0.0 % (0.0-4.3) 06/02/21 05:34 Baso % (Auto) 0.3 % (0.0-1.8) 06/02/21 05:34 Lymph # (Auto) 0.6 K/mm3 (1.2-5.4) L 06/02/21 05:34 Dale # (Auto) 0.2 K/mm3 (0.0-0.8) 06/02/21 05:34 Eos # (Auto) 0.0 K/mm3 (0.0-0.4) 06/02/21 05:34 Baso # (Auto) 0.0 K/mm3 (0.0-0.1) 06/02/21 05:34 Add Manual Diff Complete 05/12/21 04:05 Total Counted 100 05/12/21 04:05 Seg Neutrophils % 86.2 % (40.0-70.0) H 06/02/21 05:34 Seg Neuts % (Manual) 94.0 % (40.0-70.0) H 05/12/21 04:05 Band Neutrophils % 1.0 % 05/12/21 04:05 Lymphocytes % (Manual) 4.0 % (13.4-35.0) L 05/12/21 04:05 Monocytes % (Manual) 1.0 % (0.0-7.3) 05/12/21 04:05 Nucleated RBC % Not Reportable 05/12/21 04:05 Seg Neutrophils # 5.4 K/mm3 (1.8-7.7) 06/02/21 05:34 Seg Neutrophils # Man 6.4 K/mm3 (1.8-7.7) 05/12/21 04:05 Band Neutrophils # 0.1 K/mm3 05/12/21 04:05 Lymphocytes # (Manual) 0.3 K/mm3 (1.2-5.4) L 05/12/21 04:05 Abs React Lymphs (Man) 0.0 K/mm3 05/12/21 04:05 Monocytes # (Manual) 0.1 K/mm3 (0.0-0.8) 05/12/21 04:05 Eosinophils # (Manual) 0.0 K/mm3 (0.0-0.4) 05/12/21 04:05 Basophils # (Manual) 0.0 K/mm3 (0.0-0.1) 05/12/21 04:05 Metamyelocytes # 0.0 K/mm3 05/12/21 04:05 Myelocytes # 0.0 K/mm3 05/12/21 04:05 Promyelocytes # 0.0 K/mm3 05/12/21 04:05 Blast Cells # 0.0 K/mm3 05/12/21 04:05 WBC Morphology Not Reportable 05/12/21 04:05 Hypersegmented Neuts Not Reportable 05/12/21 04:05 Hyposegmented Neuts Not Reportable 05/12/21 04:05 Hypogranular Neuts Not Reportable 05/12/21 04:05 Smudge Cells Not Reportable 05/12/21 04:05 Toxic Granulation Not Reportable 05/12/21 04:05 Toxic Vacuolation Not Reportable 05/12/21 04:05 Dohle Bodies Not Reportable 05/12/21 04:05 Pelger-Huet Anomaly Not Reportable 05/12/21 04:05 Janelle Rods Not Reportable 05/12/21 04:05 Platelet Estimate Consistent w auto 05/12/21 04:05 Clumped Platelets Not Reportable 05/12/21 04:05 Plt Clumps, EDTA Not Reportable 05/12/21 04:05 Large Platelets Not Reportable 05/12/21 04:05 Giant Platelets Not Reportable 05/12/21 04:05 Platelet Satelliting Not Reportable 05/12/21 04:05 Plt Morphology Comment Not Reportable 05/12/21 04:05 RBC Morphology Normal 05/12/21 04:05 Dimorphic RBCs Not Reportable 05/12/21 04:05 Polychromasia Not Reportable 05/12/21 04:05 Hypochromasia Not Reportable 05/12/21 04:05 Poikilocytosis Not Reportable 05/12/21 04:05 Anisocytosis Not Reportable 05/12/21 04:05 Microcytosis Not Reportable 05/12/21 04:05 Macrocytosis Not Reportable 05/12/21 04:05 Spherocytes Not Reportable 05/12/21 04:05 Pappenheimer Bodies Not Reportable 05/12/21 04:05 Sickle Cells Not Reportable 05/12/21 04:05 Target Cells Not Reportable 05/12/21 04:05 Tear Drop Cells Not Reportable 05/12/21 04:05 Ovalocytes Not Reportable 05/12/21 04:05 Helmet Cells Not Reportable 05/12/21 04:05 Ahuja-Boling Bodies Not Reportable 05/12/21 04:05 Murphy Rings Not Reportable 05/12/21 04:05 [place] Cells Not Reportable 05/12/21 04:05 Bite Cells Not Reportable 05/12/21 04:05 Crenated Cell Not Reportable 05/12/21 04:05 Elliptocytes Not Reportable 05/12/21 04:05 Acanthocytes (Spur) Not Reportable 05/12/21 04:05 Rouleaux Not Reportable 05/12/21 04:05 Hemoglobin C Crystals Not Reportable 05/12/21 04:05 Schistocytes Not Reportable 05/12/21 04:05 Malaria parasites Not Reportable 05/12/21 04:05 Justin Bodies Not Reportable 05/12/21 04:05 Hem Pathologist Commnt No 05/12/21 04:05 D-Dimer 488.49 ng/mlDDU (0-234) H 06/05/21 05:26 ABG pH 7.403 pH Units (7.350-7.450) 05/14/21 02:23 POC ABG pCO2 45.4 mmHg (32.0-48.0) 05/03/21 04:49 ABG pCO2 50.2 mm Hg 05/14/21 02:23 POC ABG pO2 65.3 mmHg (83-108) L 05/03/21 04:49 ABG pO2 130.3 mm Hg (80.0-90.0) H 05/14/21 02:23 POC ABG HCO3 18.5 05/03/21 04:49 ABG HCO3 30.6 mmol/L (20.0-26.0) H 05/14/21 02:23 ABG O2 Saturation 98.5 % (95.0-99.0) 05/14/21 02:23 ABG O2 Content 17.9 (0.0-44) 05/14/21 02:23 POC ABG Base Excess -8.9 05/03/21 04:49 ABG Base Excess 4.9 mmol/L (-2.0-3.0) H 05/14/21 02:23 ABG Hemoglobin 13.0 gm/dl (12.0-16.0) 05/14/21 02:23 ABG Oxyhemoglobin 87.8 (94-98) L 05/03/21 04:49 ABG Carboxyhemoglobin 1.4 % (0.0-5.0) 05/14/21 02:23 ABG Methemoglobin 0.6 % (0.0-1.5) 05/14/21 02:23 ABG Sodium 133.0 mmol/L (136.0-145.0) L 05/03/21 04:49 ABG Potassium 3.9 mmol/L (3.40-4.50) 05/03/21 04:49 ABG Chloride 97.0 mmol/L (98-107) L 05/03/21 04:49 ABG Glucose 403 mg/dL (65-95) H 05/03/21 04:49 Oxyhemoglobin 96.5 % (95.0-99.0) 05/14/21 02:23 Carboxyhemoglobin 0.6 (0.5-1.5) 05/03/21 04:49 FiO2 90 % 05/14/21 02:23 FiO2 % 100.0 05/03/21 04:49 Sodium 137 mmol/L (137-145) 06/05/21 05:26 Potassium 4.2 mmol/L (3.6-5.0) 06/05/21 05:26 Chloride 99.5 mmol/L (98-107) 06/05/21 05:26 Carbon Dioxide 27 mmol/L (22-30) 06/05/21 05:26 Anion Gap 15 mmol/L 06/05/21 05:26 BUN 17 mg/dL (7-17) 06/05/21 05:26 Creatinine 0.2 mg/dL (0.6-1.2) L 06/05/21 05:26 Estimated GFR > 60 ml/min 06/05/21 05:26 BUN/Creatinine Ratio 85 % 06/05/21 05:26 Glucose 198 mg/dL (65-100) H 06/05/21 05:26 POC Glucose 192 mg/dL (70-105) H 06/08/21 07:59 Hemoglobin A1c 8.5 % (4-6) H 04/18/21 07:36 Calcium 9.0 mg/dL (8.4-10.2) 06/05/21 05:26 Phosphorus 3.60 mg/dL (2.5-4.5) 05/06/21 05:00 Magnesium 2.00 mg/dL (1.7-2.3) 05/06/21 05:00 Ferritin 187.7 ng/mL (10.0-200.0) 06/05/21 05:26 Total Bilirubin 0.30 mg/dL (0.1-1.2) 06/02/21 05:34 AST 22 units/L (5-40) 06/02/21 05:34 ALT 69 units/L (7-56) H 06/02/21 05:34 Alkaline Phosphatase 66 units/L (35-129) 06/02/21 05:34 Lactate Dehydrogenase 475 units/L (91-180) H 06/05/21 05:26 C-Reactive Protein 0.10 mg/dL (0.00-1.30) 06/05/21 05:26 Total Protein 6.1 g/dL (6.3-8.2) L 06/02/21 05:34 Albumin 3.2 g/dL (3.9-5) L 06/02/21 05:34 Albumin/Globulin Ratio 1.1 % 06/02/21 05:34 Triglycerides < 9 mg/dL (2-149) 05/03/21 04:30 Procalcitonin < 0.05 ng/mL (<0.15) 05/23/21 09:50 Arterial Blood Glucose 403 mg/dL (65-95) H 05/03/21 04:49 Arterial Blood Ionized Calcium 4.9 mg/dL (4.6-5.3) 05/03/21 04:49 Coronavirus (PCR) Positive (Negative) A 06/05/21 08:30 Amos/IV: Voiding Method External Female Catheter Active Medications - Current Medications Current Medications: Generic Name Dose Route Start Last Admin Trade Name Freq PRN Reason Stop Dose Admin Acetaminophen 650 mg 04/16/21 14:00 06/07/21 23:43 Acetaminophen 325 Mg Tab PO 650 mg Q4H PRN Administration Pain MILD(1-3)/Fever >100.5/[place] Albuterol 2.5 mg 04/16/21 13:39 04/21/21 20:39 Albuterol 2.5 Mg/3 Ml Nebu IH 2.5 mg Q4HRT PRN Administration Shortness Of Breath Artificial Tears 2 drops 04/28/21 18:15 05/29/21 13:25 Hypromellose 0.5% Ophth Soln 15 Ml OU 2 drops Q4H PRN Administration Dry Eye(s) Ascorbic Acid 500 mg 04/24/21 10:00 06/08/21 09:20 Ascorbic Acid 500 Mg Tab PO 500 mg QDAY TUTU Administration Cholecalciferol 1,000 unit 04/17/21 10:00 06/08/21 09:20 Cholecalciferol (Vit D3) 1000 Unit (25 Mcg) Tab PO 1,000 unit QDAY TUTU Administration Clonazepam 1 mg 05/29/21 08:06 06/02/21 21:36 Clonazepam 0.5 Mg Tab PO 1 mg Q8H PRN Administration Anxiety Dextrose 50 ml 04/18/21 07:30 04/28/21 09:59 Dextrose 50% In Water (25gm) 50 Ml Syringe IV 50 ml Q30MIN PRN Administration Hypoglycemia Protocol Docusate Sodium 100 mg 04/30/21 10:00 06/08/21 09:20 Docusate Sodium 100 Mg Cap PO 100 mg BID TUTU Administration Enoxaparin Sodium 40 mg 05/19/21 22:00 06/07/21 23:31 Enoxaparin 40 Mg/0.4 Ml Inj SUB-Q 40 mg QDAY@2200 [facility] [place] Administration Protocol Furosemide 40 mg 06/07/21 10:00 06/08/21 09:20 Furosemide 40 Mg/4 Ml Inj IV 40 mg QDAY TUTU Administration Insulin Glargine 25 units 05/04/21 11:05 06/08/21 09:25 Insulin Glargine 100 Units/Ml SUB-Q 25 units DAILY TUTU Administration Insulin Glargine 8 units 06/04/21 18:07 06/07/21 23:33 Insulin Glargine 100 Units/Ml SUB-Q 8 units QHS [facility] [place] Administration Insulin Human Lispro 0 unit 05/18/21 12:00 06/08/21 07:30 Insulin Lispro 100 Unit/Ml SUB-Q 3 unit ACHS [facility] [place] Administration Protocol Lorazepam 1 mg 05/25/21 14:40 06/03/21 15:32 Lorazepam 2 Mg/Ml Vial IV 1 mg Q6H PRN Administration Agitation Magnesium Hydroxide 30 ml 06/07/21 16:30 Magnesium Hydroxide (Mom) Oral Liqd Udc PO QDAY PRN Constipation Methylprednisolone Sodium Succinate 40 mg 05/31/21 11:32 06/08/21 06:40 Methylprednisolone Sod Succinate 125 Mg/2 Ml Inj IV 40 mg Q8HR [facility] [place] Administration Multi-Ingred Cream/Lotion/Oil/Oint 1 applic 05/10/21 14:00 06/08/21 06:00 Mineral Oil/Petrolatum, White Ophth Oint 3.5 Gm OU Not Given Q8HR [facility] [place] Ondansetron HCl 4 mg 04/16/21 14:00 05/30/21 10:07 Ondansetron 4 Mg/2 Ml Inj IV 4 mg Q8H PRN Administration Nausea And Vomiting Senna 17.2 mg 05/02/21 22:00 06/07/21 23:33 Sennosides 8.6 Mg Tab PO 17.2 mg QHS [facility] [place] Administration Sodium Chloride 10 ml 04/16/21 22:00 06/08/21 09:21 Sodium Chloride 0.9% 10 Ml Flush Syringe IV 10 ml BID TUTU Administration Sodium Chloride 10 ml 04/16/21 13:39 05/22/21 15:21 Sodium Chloride 0.9% 10 Ml Flush Syringe IV 10 ml PRN PRN Administration LINE FLUSH Zinc Sulfate 220 mg 04/16/21 22:00 06/08/21 09:20 Zinc Sulfate 220 Mg Cap PO 220 mg BID TUTU Administration Zolpidem Tartrate 10 mg 05/26/21 08:56 06/06/21 23:25 Zolpidem 5 Mg Tab PO 10 mg QHS PRN Administration Insomnia Nutrition/Malnutrition Assess - Dietary Evaluation Nutrition/Malnutrition Findings: Nutrition Notes Start: 04/23/21 07:41 Freq: Status: Active Protocol: Document 06/04/21 11:07 FABIAN (Rec: 06/04/21 11:07 FABIAN [id number]) Nutrition Notes Initial or Follow up Brief Note Current Diagnosis Respiratory Failure Other Pertinent Diagnosis oral thrush, COVID-19 pneu Current Diet GI soft Subjective/Other Information Pt continues to eat 75-100% of meals. Nutrition Intervention Revisit per MD consult or patient Sign Off request:
[2021-06-08] MEDS ORDERED: MAGNESIUM HYDROXIDE (MOM) ORAL LIQD UDC PO NR (15:00)
--- NOTE | 2021-06-08 19:32 | Progress Note ---
Assessment and Plan Assessment and plan: COVID-19 positive 04/17/2021 COVID-19 test - 05/21/2021 Gomes 19 test positive 06/05/21 --Acute respiratory failure with severe hypoxia/COVID-19 infection Patient is currently requiring high flow nasal cannula oxygen 30 L/80% FiO2/O2 sats 98% wean as tolerated, Prone positioning, Home O2 evaluation Continue management per COVID-19 guidelines CTA ; negative PE ,however diffuse bilateral groundglass opacities edema vs ARDS We will treat with low-dose Lasix, pulmonary following --Severe sepsis secondary to COVID-19 pneumonia; Continue zinc sulfate, vitamin C, oral vitamin D3 Patient is on steroid, completed remdesivir and Actemra Prone positioning, home O2 evaluation Follow inflammatory markers ID following Patient is critically ill, with severe hypoxemia on high flow oxygen for many days With no improvement, very poor prognosis, severe sepsis. Critical care time 61 minutes The high probability of a clinically significant, sudden or life threatening det erioration of the [pulmonary, endocrine, and metabolic] system(s) required my full and direct attention, intervention and personal management. The aggregate critical care time was [61] minutes. This time is in addition to time spent performing reported procedures but includes the following: [x] Data Review and interpretation [x] Patient assessment and monitoring of vital signs [x] Documentation [x] Medication orders and management CTA chest: 06/06/2021; no CT evidence of PE, diffuse bilateral groundglass opacities in both lungs that can indicate a combination of edema and/or pneumonia ARDS could also produce this appearance Lower extremity venous Doppler: 05/01/2021 - negative for DVT I communicated frequently through an Vincentian speaking patient's friend over her iPhone at the bedside. And updated patient's condition --oral candidiasis Continue oral nystatin solution --hyponatremia Resolved, closely monitor electrolytes sodium is 142 --coagulopathy; -Subcu heparin -Trend CBC-no need for transfusion. -Transfuse for hemoglobin less than 7 -Bilateral lower extremity Doppler ultrasounds negative for DVT ; no CTA or VQ scan to rule out PE --hyperglycemia Accu-Cheks stable at this time. -Lantus HS -SSI AC/HS -Avoid hypoglycemia --moderate protein calorie malnutrition Nutrition supplement, supportive care Nutrition consult if not already done --generalized anxiety Likely due to severe hypoxia Has shown some signs of improvement over the past 24 hours able to wean oxygen some. -Follows commands and RAY -PRN pain and anxiety meds -Patient is [place]-speaking but understands Vincentian Added Ambien for insomnia. Anxiety resolving. add klonipin for anxiety --viral conjunctivitis right eye: Resolved would like drops for her eyes again. States eyes are dry. -Right eye- s/p 5 d course of cipro drops. suspect viral conjunctivitis. lubricating eye drops. supportive management. Erythema has resolved --septic shock s/p vasopressors .resolved Blood pressures reasonable level. Continue supportive care --DVT prophylaxis; Subcu Lovenox --DC planning; Per case management, , home O2 evaluation, possible home health upon discharge if needed Critical care time 61 minutes as mentioned above Subjective Date of service: 06/03/21 Principal diagnosis: Covid-19 Interval history: 50 YO Female with GERD, Obesity, HLD presents to ED for evaluation. Patient reports "I cannot breathe". Patient states that she has experienced subjective fever, shortness of breath, malaise, body aches, dry cough, and shortness of breath over the past 1 week with progressively worsening symptoms over the same timeframe. EMS was notified and upon arrival the patient was found to be in distress and subsequent transported to [facility] for further care and evaluation of the aforementioned symptoms. The patient was seen and evaluated in the emerg ency department. All lab and imaging studies reviewed. Patient found to have a pulse oximetry of 86% with exertion on room air which is consistent with acute hypoxemic respiratory failure. Patient with chest x-ray which revealed bilateral pneumonia. Patient admitted to medical floor and initiated him on pneumonia protocol as well as coronavirus protocol. Patient knowledges fever but denies chills, chest pain, palpitation, skin rash, recent ill contacts, or known exposure to COVID-19. Prior admission on 01/21/2017 reviewed. All medication listed at time of admission has been reconciled. Patient is unvaccinated for coronavirus infection. 06/01/2021 Patient admitted for acute respiratory failure with hypoxia Weaning in progress Pulmonary consult appreciated COVID-pneumonia On high flow nasal cannula oxygen at 35 L. 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 06/02/2021 Patient still on high flow nasal cannula oxygen 35 L high flow and 80% 06/03/2021; Patient continues to require high flow nasal cannula oxygen 35 L, BiPAP, wean as tolerated 06/04/2021; Patient is very anxious, remains on high flow nasal cannula oxygen 30 5L/80% FiO2/98% O2 sats Wean as tolerated, pulmonary following, recheck COVID-19 test Prone positioning strongly advised, continue supportive care Worsening D-dimers in the setting of hypoxia, consider CTA chest to rule out PE 06/05/2021; COVID-19 test will be repeated tomorrow[did not get proper sample today] Continues to be on high flow oxygen, mild distress 06/06/2021 CTA chest; negative for PE, ARDS-like picture versus edema We will give low-dose daily Lasix, and monitor closely I spoke with patient's daughter bilingual in Vincentian over patient's cell phone at the bedside, and conversed with the patient, She had numerous questions answered all of them, I encouraged her to call back if she has new concerns 06/07/2021; patient complains of constipation Continues to be on high flow oxygen 30 L/85% FiO2/95% O2 sats Milk of magnesia and stool softeners I discussed with patient's daughter Ms. Alatorre today and updated patient's condition\\answered all her questions 06/08/2021; will continue current management 06/09/2021; remains on high flow nasal cannula oxygen 30 L/80% FiO2/98 O2 sats Home O2 evaluation prior to discharge History Interval history: I have seen and examined the patient at the bedside Patient's chart and medications reviewed Still remains on high flow nasal cannula oxygen 30 L/80% FiO2/90% O2 sats Hospitalist Physical - Constitutional Vitals: Temp Pulse Resp BP Pulse Ox 97.6 F 97 H 19 116/71 97 06/08/21 11:26 06/08/21 16:21 06/08/21 11:26 06/08/21 11:26 06/08/21 16:21 General appearance: Present: mild distress, well-nourished, other (On high flow nasal cannula oxygen 35 L) - EENT Eyes: Present: PERRL, EOM intact - Neck Neck: Present: supple, normal ROM - Respiratory Respiratory effort: normal Respiratory: bilateral: diminished, rhonchi, negative: rales, wheezing - Cardiovascular Rhythm: regular Heart Sounds: Present: S1 & S2 - Extremities Extremities: no ischemia, No edema - Abdominal General gastrointestinal: soft, non-tender, non-distended, normal bowel sounds - Integumentary Integumentary: Present: clear, warm - Psychiatric Psychiatric: appropriate mood/affect, cooperative - Neurologic Neurologic: CNII-XII intact, moves all extremities Results - Labs CBC & Chem 7: 06/02/21 05:34 06/05/21 05:26 Labs: Laboratory Last Values WBC 6.2 K/mm3 (4.5-11.0) 06/02/21 05:34 RBC 4.29 M/mm3 (3.65-5.03) 06/02/21 05:34 Hgb 13.6 gm/dl (10.1-14.3) 06/02/21 05:34 Hct 40.5 % (30.3-42.9) 06/02/21 05:34 MCV 95 fl (79-97) 06/02/21 05:34 MCH 32 pg (28-32) 06/02/21 05:34 MCHC 34 % (30-34) 06/02/21 05:34 RDW 21.3 % (13.2-15.2) H 06/02/21 05:34 Plt Count 204 K/mm3 (140-440) 06/02/21 05:34 Lymph % (Auto) 9.6 % (13.4-35.0) L 06/02/21 05:34 [place] % (Auto) 3.9 % (0.0-7.3) 06/02/21 05:34 Eos % (Auto) 0.0 % (0.0-4.3) 06/02/21 05:34 Baso % (Auto) 0.3 % (0.0-1.8) 06/02/21 05:34 Lymph # (Auto) 0.6 K/mm3 (1.2-5.4) L 06/02/21 05:34 [place] # (Auto) 0.2 K/mm3 (0.0-0.8) 06/02/21 05:34 Eos # (Auto) 0.0 K/mm3 (0.0-0.4) 06/02/21 05:34 Baso # (Auto) 0.0 K/mm3 (0.0-0.1) 06/02/21 05:34 Add Manual Diff Complete 05/12/21 04:05 Total Counted 100 05/12/21 04:05 Seg Neutrophils % 86.2 % (40.0-70.0) H 06/02/21 05:34 Seg Neuts % (Manual) 94.0 % (40.0-70.0) H 05/12/21 04:05 Band Neutrophils % 1.0 % 05/12/21 04:05 Lymphocytes % (Manual) 4.0 % (13.4-35.0) L 05/12/21 04:05 Monocytes % (Manual) 1.0 % (0.0-7.3) 05/12/21 04:05 Nucleated RBC % Not Reportable 05/12/21 04:05 Seg Neutrophils # 5.4 K/mm3 (1.8-7.7) 06/02/21 05:34 Seg Neutrophils # Man 6.4 K/mm3 (1.8-7.7) 05/12/21 04:05 Band Neutrophils # 0.1 K/mm3 05/12/21 04:05 Lymphocytes # (Manual) 0.3 K/mm3 (1.2-5.4) L 05/12/21 04:05 Abs React Lymphs (Man) 0.0 K/mm3 05/12/21 04:05 Monocytes # (Manual) 0.1 K/mm3 (0.0-0.8) 05/12/21 04:05 Eosinophils # (Manual) 0.0 K/mm3 (0.0-0.4) 05/12/21 04:05 Basophils # (Manual) 0.0 K/mm3 (0.0-0.1) 05/12/21 04:05 Metamyelocytes # 0.0 K/mm3 05/12/21 04:05 Myelocytes # 0.0 K/mm3 05/12/21 04:05 Promyelocytes # 0.0 K/mm3 05/12/21 04:05 Blast Cells # 0.0 K/mm3 05/12/21 04:05 WBC Morphology Not Reportable 05/12/21 04:05 Hypersegmented Neuts Not Reportable 05/12/21 04:05 Hyposegmented Neuts Not Reportable 05/12/21 04:05 Hypogranular Neuts Not Reportable 05/12/21 04:05 Smudge Cells Not Reportable 05/12/21 04:05 Toxic Granulation Not Reportable 05/12/21 04:05 Toxic Vacuolation Not Reportable 05/12/21 04:05 Dohle Bodies Not Reportable 05/12/21 04:05 Pelger-Huet Anomaly Not Reportable 05/12/21 04:05 Janelle Rods Not Reportable 05/12/21 04:05 Platelet Estimate Consistent w auto 05/12/21 04:05 Clumped Platelets Not Reportable 05/12/21 04:05 Plt Clumps, EDTA Not Reportable 05/12/21 04:05 Large Platelets Not Reportable 05/12/21 04:05 Giant Platelets Not Reportable 05/12/21 04:05 Platelet Satelliting Not Reportable 05/12/21 04:05 Plt Morphology Comment Not Reportable 05/12/21 04:05 RBC Morphology Normal 05/12/21 04:05 Dimorphic RBCs Not Reportable 05/12/21 04:05 Polychromasia Not Reportable 05/12/21 04:05 Hypochromasia Not Reportable 05/12/21 04:05 Poikilocytosis Not Reportable 05/12/21 04:05 Anisocytosis Not Reportable 05/12/21 04:05 Microcytosis Not Reportable 05/12/21 04:05 Macrocytosis Not Reportable 05/12/21 04:05 Spherocytes Not Reportable 05/12/21 04:05 Pappenheimer Bodies Not Reportable 05/12/21 04:05 Sickle Cells Not Reportable 05/12/21 04:05 Target Cells Not Reportable 05/12/21 04:05 Tear Drop Cells Not Reportable 05/12/21 04:05 Ovalocytes Not Reportable 05/12/21 04:05 Helmet Cells Not Reportable 05/12/21 04:05 [place] Bodies Not Reportable 05/12/21 04:05 [place] Rings Not Reportable 05/12/21 04:05 [place] Cells Not Reportable 05/12/21 04:05 Bite Cells Not Reportable 05/12/21 04:05 Crenated Cell Not Reportable 05/12/21 04:05 Elliptocytes Not Reportable 05/12/21 04:05 Acanthocytes (Spur) Not Reportable 05/12/21 04:05 Rouleaux Not Reportable 05/12/21 04:05 Hemoglobin C Crystals Not Reportable 05/12/21 04:05 Schistocytes Not Reportable 05/12/21 04:05 Malaria parasites Not Reportable 05/12/21 04:05 Justin Bodies Not Reportable 05/12/21 04:05 Hem Pathologist Commnt No 05/12/21 04:05 D-Dimer 488.49 ng/mlDDU (0-234) H 06/05/21 05:26 ABG pH 7.403 pH Units (7.350-7.450) 05/14/21 02:23 POC ABG pCO2 45.4 mmHg (32.0-48.0) 05/03/21 04:49 ABG pCO2 50.2 mm Hg 05/14/21 02:23 POC ABG pO2 65.3 mmHg (83-108) L 05/03/21 04:49 ABG pO2 130.3 mm Hg (80.0-90.0) H 05/14/21 02:23 POC ABG HCO3 18.5 05/03/21 04:49 ABG HCO3 30.6 mmol/L (20.0-26.0) H 05/14/21 02:23 ABG O2 Saturation 98.5 % (95.0-99.0) 05/14/21 02:23 ABG O2 Content 17.9 (0.0-44) 05/14/21 02:23 POC ABG Base Excess -8.9 05/03/21 04:49 ABG Base Excess 4.9 mmol/L (-2.0-3.0) H 05/14/21 02:23 ABG Hemoglobin 13.0 gm/dl (12.0-16.0) 05/14/21 02:23 ABG Oxyhemoglobin 87.8 (94-98) L 05/03/21 04:49 ABG Carboxyhemoglobin 1.4 % (0.0-5.0) 05/14/21 02:23 ABG Methemoglobin 0.6 % (0.0-1.5) 05/14/21 02:23 ABG Sodium 133.0 mmol/L (136.0-145.0) L 05/03/21 04:49 ABG Potassium 3.9 mmol/L (3.40-4.50) 05/03/21 04:49 ABG Chloride 97.0 mmol/L (98-107) L 05/03/21 04:49 ABG Glucose 403 mg/dL (65-95) H 05/03/21 04:49 Oxyhemoglobin 96.5 % (95.0-99.0) 05/14/21 02:23 Carboxyhemoglobin 0.6 (0.5-1.5) 05/03/21 04:49 FiO2 90 % 05/14/21 02:23 FiO2 % 100.0 05/03/21 04:49 Sodium 137 mmol/L (137-145) 06/05/21 05:26 Potassium 4.2 mmol/L (3.6-5.0) 06/05/21 05:26 Chloride 99.5 mmol/L (98-107) 06/05/21 05:26 Carbon Dioxide 27 mmol/L (22-30) 06/05/21 05:26 Anion Gap 15 mmol/L 06/05/21 05:26 BUN 17 mg/dL (7-17) 06/05/21 05:26 Creatinine 0.2 mg/dL (0.6-1.2) L 06/05/21 05:26 Estimated GFR > 60 ml/min 06/05/21 05:26 BUN/Creatinine Ratio 85 % 06/05/21 05:26 Glucose 198 mg/dL (65-100) H 06/05/21 05:26 POC Glucose 307 mg/dL (70-105) H 06/08/21 11:26 Hemoglobin A1c 8.5 % (4-6) H 04/18/21 07:36 Calcium 9.0 mg/dL (8.4-10.2) 06/05/21 05:26 Phosphorus 3.60 mg/dL (2.5-4.5) 05/06/21 05:00 Magnesium 2.00 mg/dL (1.7-2.3) 05/06/21 05:00 Ferritin 187.7 ng/mL (10.0-200.0) 06/05/21 05:26 Total Bilirubin 0.30 mg/dL (0.1-1.2) 06/02/21 05:34 AST 22 units/L (5-40) 06/02/21 05:34 ALT 69 units/L (7-56) H 06/02/21 05:34 Alkaline Phosphatase 66 units/L (35-129) 06/02/21 05:34 Lactate Dehydrogenase 475 units/L (91-180) H 06/05/21 05:26 C-Reactive Protein 0.10 mg/dL (0.00-1.30) 06/05/21 05:26 Total Protein 6.1 g/dL (6.3-8.2) L 06/02/21 05:34 Albumin 3.2 g/dL (3.9-5) L 06/02/21 05:34 Albumin/Globulin Ratio 1.1 % 06/02/21 05:34 Triglycerides < 9 mg/dL (2-149) 05/03/21 04:30 Procalcitonin < 0.05 ng/mL (<0.15) 05/23/21 09:50 Arterial Blood Glucose 403 mg/dL (65-95) H 05/03/21 04:49 Arterial Blood Ionized Calcium 4.9 mg/dL (4.6-5.3) 05/03/21 04:49 Coronavirus (PCR) Positive (Negative) A 06/05/21 08:30 Amos/IV: Voiding Method External Female Catheter Active Medications - Current Medications Current Medications: Generic Name Dose Route Start Last Admin Trade Name Freq PRN Reason Stop Dose Admin Acetaminophen 650 mg 04/16/21 14:00 06/07/21 23:43 Acetaminophen 325 Mg Tab PO 650 mg Q4H PRN Administration Pain MILD(1-3)/Fever >100.5/[place] Albuterol 2.5 mg 04/16/21 13:39 04/21/21 20:39 Albuterol 2.5 Mg/3 Ml Nebu IH 2.5 mg Q4HRT PRN Administration Shortness Of Breath Artificial Tears 2 drops 04/28/21 18:15 05/29/21 13:25 Hypromellose 0.5% Ophth Soln 15 Ml OU 2 drops Q4H PRN Administration Dry Eye(s) Ascorbic Acid 500 mg 04/24/21 10:00 06/08/21 09:20 Ascorbic Acid 500 Mg Tab PO 500 mg QDAY TUTU Administration Cholecalciferol 1,000 unit 04/17/21 10:00 06/08/21 09:20 Cholecalciferol (Vit D3) 1000 Unit (25 Mcg) Tab PO 1,000 unit QDAY TUTU Administration Clonazepam 1 mg 05/29/21 08:06 06/02/21 21:36 Clonazepam 0.5 Mg Tab PO 1 mg Q8H PRN Administration Anxiety Dextrose 50 ml 04/18/21 07:30 04/28/21 09:59 Dextrose 50% In Water (25gm) 50 Ml Syringe IV 50 ml Q30MIN PRN Administration Hypoglycemia Protocol Docusate Sodium 100 mg 04/30/21 10:00 06/08/21 09:20 Docusate Sodium 100 Mg Cap PO 100 mg BID TUTU Administration Enoxaparin Sodium 40 mg 05/19/21 22:00 06/07/21 23:31 Enoxaparin 40 Mg/0.4 Ml Inj SUB-Q 40 mg QDAY@2200 TUTU Administration Protocol Furosemide 40 mg 06/07/21 10:00 06/08/21 09:20 Furosemide 40 Mg/4 Ml Inj IV 40 mg QDAY TUTU Administration Insulin Glargine 25 units 05/04/21 11:05 06/08/21 09:25 Insulin Glargine 100 Units/Ml SUB-Q 25 units DAILY TUTU Administration Insulin Glargine 8 units 06/04/21 18:07 06/07/21 23:33 Insulin Glargine 100 Units/Ml SUB-Q 8 units QHS TUTU Administration Insulin Human Lispro 0 unit 05/18/21 12:00 06/08/21 16:30 Insulin Lispro 100 Unit/Ml SUB-Q 3 unit ACHS TUTU Administration Protocol Lorazepam 1 mg 05/25/21 14:40 06/03/21 15:32 Lorazepam 2 Mg/Ml Vial IV 1 mg Q6H PRN Administration Agitation Magnesium Hydroxide 30 ml 06/07/21 16:30 Magnesium Hydroxide (Mom) Oral Liqd Udc PO QDAY PRN Constipation Methylprednisolone Sodium Succinate 40 mg 05/31/21 11:32 06/08/21 14:29 Methylprednisolone Sod Succinate 125 Mg/2 Ml Inj IV 40 mg Q8HR TUTU Administration Multi-Ingred Cream/Lotion/Oil/Oint 1 applic 05/10/21 14:00 06/08/21 14:00 Mineral Oil/Petrolatum, White Ophth Oint 3.5 Gm OU 1 applic Q8HR TUTU Administration Ondansetron HCl 4 mg 04/16/21 14:00 05/30/21 10:07 Ondansetron 4 Mg/2 Ml Inj IV 4 mg Q8H PRN Administration Nausea And Vomiting Senna 17.2 mg 05/02/21 22:00 06/07/21 23:33 Sennosides 8.6 Mg Tab PO 17.2 mg QHS TUTU Administration Sodium Chloride 10 ml 04/16/21 22:00 06/08/21 09:21 Sodium Chloride 0.9% 10 Ml Flush Syringe IV 10 ml BID TUTU Administration Sodium Chloride 10 ml 04/16/21 13:39 05/22/21 15:21 Sodium Chloride 0.9% 10 Ml Flush Syringe IV 10 ml PRN PRN Administration LINE FLUSH Zinc Sulfate 220 mg 04/16/21 22:00 06/08/21 09:20 Zinc Sulfate 220 Mg Cap PO 220 mg BID TUTU Administration Zolpidem Tartrate 10 mg 05/26/21 08:56 06/06/21 23:25 Zolpidem 5 Mg Tab PO 10 mg QHS PRN Administration Insomnia Nutrition/Malnutrition Assess - Dietary Evaluation Nutrition/Malnutrition Findings: Nutrition Notes Start: 04/23/21 07:41 Freq: Status: Active Protocol: Document 06/04/21 11:07 (Rec: 06/04/21 11:07 [id number]) Nutrition Notes Initial or Follow up Brief Note Current Diagnosis Respiratory Failure Other Pertinent Diagnosis oral thrush, COVID-19 pneu Current Diet GI soft Subjective/Other Information Pt continues to eat 75-100% of meals. Nutrition Intervention Revisit per MD consult or patient Sign Off request:
[2021-06-08] MEDS: ENOXAPARIN 40 MG/0.4 ML INJ SUB-Q SCH (22:04)
[2021-06-08] MEDS: SENNOSIDES 8.6 MG TAB PO SCH (22:08)
[2021-06-08] MEDS: clonazePAM 0.5 MG TAB PO PRN (22:21)
[2021-06-08] MEDS: ACETAMINOPHEN 325 MG TAB PO PRN (22:22)
[2021-06-09] MEDS: MINERAL OIL/PETROLATUM, WHITE OPHTH OINT 3.5 GM OU SCH ×3 (05:51→22:33)
[2021-06-09] MEDS: methylPREDNISolone Sod Succinate 125 MG/2 ML INJ IV SCH ×3 (05:52→21:56)
[2021-06-09] MEDS: INSULIN LISPRO 100 UNIT/ML SUB-Q SCH ×4 (07:30→22:32)
[2021-06-09] MEDS: INSULIN GLARGINE 100 UNITS/ML SUB-Q SCH ×2 (10:10→21:56)
[2021-06-09] MEDS: FUROSEMIDE 40 MG/4 ML INJ IV SCH (10:11)
[2021-06-09] MEDS: ZINC SULFATE 220 MG CAP PO SCH ×2 (10:11→21:55)
[2021-06-09] MEDS: DOCUSATE SODIUM 100 MG CAP PO SCH ×2 (10:11→21:55)
[2021-06-09] MEDS: ASCORBIC ACID 500 MG TAB PO SCH (10:11)
[2021-06-09] MEDS: CHOLECALCIFEROL (VIT D3) 1000 UNIT (25 mcg) TAB PO SCH (10:11)
[2021-06-09] MEDS: SENNOSIDES 8.6 MG TAB PO SCH (21:54)
[2021-06-09] MEDS: ENOXAPARIN 40 MG/0.4 ML INJ SUB-Q SCH (21:55)
[2021-06-09] MEDS: clonazePAM 0.5 MG TAB PO PRN (21:55)
[2021-06-09] MEDS: ACETAMINOPHEN 325 MG TAB PO PRN (22:37)
[2021-06-10] MEDS: methylPREDNISolone Sod Succinate 125 MG/2 ML INJ IV SCH ×3 (05:28→21:49)
[2021-06-10] MEDS: MINERAL OIL/PETROLATUM, WHITE OPHTH OINT 3.5 GM OU SCH (06:49)
[2021-06-10] MEDS: INSULIN LISPRO 100 UNIT/ML SUB-Q SCH ×4 (07:30→21:52)
[2021-06-10] MEDS: INSULIN GLARGINE 100 UNITS/ML SUB-Q SCH ×3 (08:43→21:51)
[2021-06-10] MEDS: ASCORBIC ACID 500 MG TAB PO SCH (10:36)
[2021-06-10] MEDS: FUROSEMIDE 40 MG/4 ML INJ IV SCH (10:37)
[2021-06-10] MEDS: ZINC SULFATE 220 MG CAP PO SCH ×2 (10:37→21:51)
[2021-06-10] MEDS: DOCUSATE SODIUM 100 MG CAP PO SCH ×2 (10:37→21:52)
[2021-06-10] MEDS: CHOLECALCIFEROL (VIT D3) 1000 UNIT (25 mcg) TAB PO SCH (10:37)
[2021-06-10] MEDS: MAGNESIUM HYDROXIDE (MOM) ORAL LIQD UDC PO PRN (10:40)
--- NOTE | 2021-06-10 19:45 | Progress Note ---
Assessment and Plan Assessment and plan: COVID-19 positive 04/17/2021 COVID-19 test - 05/21/2021 Gomes 19 test positive 06/05/21 --Acute respiratory failure with severe hypoxia/COVID-19 infection Patient is currently requiring high flow nasal cannula oxygen 30 L/80% FiO2/O2 sats 98% wean as tolerated, Prone positioning, Home O2 evaluation Continue management per COVID-19 guidelines CTA ; negative PE ,however diffuse bilateral groundglass opacities edema vs ARDS We will treat with low-dose Lasix, pulmonary following --Severe sepsis secondary to COVID-19 pneumonia; Continue zinc sulfate, vitamin C, oral vitamin D3 Patient is on steroid, completed remdesivir and Actemra Prone positioning, home O2 evaluation Follow inflammatory markers ID following CTA chest: 06/06/2021; no CT evidence of PE, diffuse bilateral groundglass opacities in both lungs that can indicate a combination of edema and/or pneumonia ARDS could also produce this appearance Lower extremity venous Doppler: 05/01/2021 - negative for DVT I communicated frequently through an Latvian speaking patient's friend over her iPhone at the bedside. And updated patient's condition --oral candidiasis Continue oral nystatin solution --hyponatremia Resolved, closely monitor electrolytes sodium is 142 --coagulopathy; -Subcu heparin -Trend CBC-no need for transfusion. -Transfuse for hemoglobin less than 7 -Bilateral lower extremity Doppler ultrasounds negative for DVT ; no CTA or VQ scan to rule out PE --hyperglycemia Accu-Cheks stable at this time. -Lantus HS -SSI AC/HS -Avoid hypoglycemia --moderate protein calorie malnutrition Nutrition supplement, supportive care Nutrition consult if not already done --generalized anxiety Likely due to severe hypoxia Has shown some signs of improvement over the past 24 hours able to wean oxygen some. -Follows commands and RAY -PRN pain and anxiety meds -Patient is Malay-speaking but understands Latvian Added Ambien for insomnia. Anxiety resolving. add klonipin for anxiety --viral conjunctivitis right eye: Resolved would like drops for her eyes again. States eyes are dry. -Right eye- s/p 5 d course of cipro drops. suspect viral conjunctivitis. lubricating eye drops. supportive management. Erythema has resolved --septic shock s/p vasopressors .resolved Blood pressures reasonable level. Continue supportive care --DVT prophylaxis; Subcu Lovenox --DC planning; Per case management, , home O2 evaluation, possible home health upon discharge if needed Patient is critically ill, with severe hypoxemia on high flow oxygen for many days With no improvement, very poor prognosis, severe sepsis. Critical care time 61 minutes The high probability of a clinically significant, sudden or life threatening deterioration of the [pulmonary, endocrine, and metabolic] system(s) required my full and direct attention, intervention and personal management. The aggregate critical care time was [45] minutes. This time is in addition to time spent performing reported procedures but includes the following: [x] Data Review and interpretation [x] Patient assessment and monitoring of vital signs [x] Documentation [x] Medication orders and management Critical care time[45] minutes as mentioned above Subjective Date of service: 06/10/21 Principal diagnosis: Covid-19 Interval history: 50 YO Female with GERD, Obesity, HLD presents to ED for evaluation. Patient reports "I cannot breathe". Patient states that she has experienced subjective fever, shortness of breath, malaise, body aches, dry cough, and shortness of breath over the past 1 week with progressively worsening symptoms over the same timeframe. EMS was notified and upon arrival the patient was found to be in distress and subsequent transported to [facility] for further care and evaluation of the aforementioned symptoms. The patient was seen and evaluated in the emergen cy department. All lab and imaging studies reviewed. Patient found to have a pulse oximetry of 86% with exertion on room air which is consistent with acute hypoxemic respiratory failure. Patient with chest x-ray which revealed bilateral pneumonia. Patient admitted to medical floor and initiated him on pneumonia protocol as well as coronavirus protocol. Patient knowledges fever but denies chills, chest pain, palpitation, skin rash, recent ill contacts, or known exposure to COVID-19. Prior admission on 01/21/2017 reviewed. All medication listed at time of admission has been reconciled. Patient is unvaccinated for coronavirus infection. 06/01/2021 Patient admitted for acute respiratory failure with hypoxia Weaning in progress Pulmonary consult appreciated COVID-pneumonia On high flow nasal cannula oxygen at 35 L. 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 06/02/2021 Patient still on high flow nasal cannula oxygen 35 L high flow and 80% 06/03/2021; Patient continues to require high flow nasal cannula oxygen 35 L, BiPAP, wean as tolerated 06/04/2021; Patient is very anxious, remains on high flow nasal cannula oxygen 30 5L/80% FiO2/98% O2 sats Wean as tolerated, pulmonary following, recheck COVID-19 test Prone positioning strongly advised, continue supportive care Worsening D-dimers in the setting of hypoxia, consider CTA chest to rule out PE 06/05/2021; COVID-19 test will be repeated tomorrow[did not get proper sample today] Continues to be on high flow oxygen, mild distress 06/06/2021 CTA chest; negative for PE, ARDS-like picture versus edema We will give low-dose daily Lasix, and monitor closely I spoke with patient's daughter bilingual in Latvian over patient's cell phone at the bedside, and conversed with the patient, She had numerous questions answered all of them, I encouraged her to call back if she has new concerns 06/07/2021; patient complains of constipation Continues to be on high flow oxygen 30 L/85% FiO2/95% O2 sats Milk of magnesia and stool softeners I discussed with patient's daughter Ms. Alatorre today and updated patient's condition\\answered all her questions 06/08/2021; will continue current management 06/09/2021; remains on high flow nasal cannula oxygen 30 L/80% FiO2/98 O2 sats Home O2 evaluation prior to discharge 06/10/2021; HFNC oxygen 30 L; 80% FiO2; 96 O2 sats Patient feels slightly better still complains of generalized weakness and fatigue Wean oxygen as tolerated, discharge when medically stable History Interval history: I have seen and examined the patient at the bedside this morning Patient's chart and medications reviewed No new events reported by the nursing staff Patient continues to be on 30 L of high flow nasal cannula oxygen In mild distress but feels better than yesterday Hospitalist Physical - Constitutional Vitals: Temp Pulse Resp BP Pulse Ox 97.9 F 102 H 18 103/50 95 06/10/21 12:12 06/10/21 12:12 06/10/21 12:12 06/10/21 12:12 06/10/21 12:12 General appearance: Present: mild distress, well-nourished, other (On high flow nasal cannula oxygen 30 L) - EENT Eyes: Present: PERRL, EOM intact - Neck Neck: Present: supple, normal ROM - Respiratory Respiratory effort: normal Respiratory: bilateral: diminished, rhonchi, negative: rales, wheezing - Cardiovascular Rhythm: regular Heart Sounds: Present: S1 & S2 - Extremities Extremities: no ischemia, No edema - Abdominal General gastrointestinal: soft, non-tender, non-distended, normal bowel sounds - Integumentary Integumentary: Present: clear, warm - Psychiatric Psychiatric: appropriate mood/affect, cooperative - Neurologic Neurologic: CNII-XII intact, moves all extremities Results - Labs CBC & Chem 7: 06/02/21 05:34 06/05/21 05:26 Labs: Laboratory Last Values WBC 6.2 K/mm3 (4.5-11.0) 06/02/21 05:34 RBC 4.29 M/mm3 (3.65-5.03) 06/02/21 05:34 Hgb 13.6 gm/dl (10.1-14.3) 06/02/21 05:34 Hct 40.5 % (30.3-42.9) 06/02/21 05:34 MCV 95 fl (79-97) 06/02/21 05:34 MCH 32 pg (28-32) 06/02/21 05:34 MCHC 34 % (30-34) 06/02/21 05:34 RDW 21.3 % (13.2-15.2) H 06/02/21 05:34 Plt Count 204 K/mm3 (140-440) 06/02/21 05:34 Lymph % (Auto) 9.6 % (13.4-35.0) L 06/02/21 05:34 Harrison % (Auto) 3.9 % (0.0-7.3) 06/02/21 05:34 Eos % (Auto) 0.0 % (0.0-4.3) 06/02/21 05:34 Baso % (Auto) 0.3 % (0.0-1.8) 06/02/21 05:34 Lymph # (Auto) 0.6 K/mm3 (1.2-5.4) L 06/02/21 05:34 Harrison # (Auto) 0.2 K/mm3 (0.0-0.8) 06/02/21 05:34 Eos # (Auto) 0.0 K/mm3 (0.0-0.4) 06/02/21 05:34 Baso # (Auto) 0.0 K/mm3 (0.0-0.1) 06/02/21 05:34 Add Manual Diff Complete 05/12/21 04:05 Total Counted 100 05/12/21 04:05 Seg Neutrophils % 86.2 % (40.0-70.0) H 06/02/21 05:34 Seg Neuts % (Manual) 94.0 % (40.0-70.0) H 05/12/21 04:05 Band Neutrophils % 1.0 % 05/12/21 04:05 Lymphocytes % (Manual) 4.0 % (13.4-35.0) L 05/12/21 04:05 Monocytes % (Manual) 1.0 % (0.0-7.3) 05/12/21 04:05 Nucleated RBC % Not Reportable 05/12/21 04:05 Seg Neutrophils # 5.4 K/mm3 (1.8-7.7) 06/02/21 05:34 Seg Neutrophils # Man 6.4 K/mm3 (1.8-7.7) 05/12/21 04:05 Band Neutrophils # 0.1 K/mm3 05/12/21 04:05 Lymphocytes # (Manual) 0.3 K/mm3 (1.2-5.4) L 05/12/21 04:05 Abs React Lymphs (Man) 0.0 K/mm3 05/12/21 04:05 Monocytes # (Manual) 0.1 K/mm3 (0.0-0.8) 05/12/21 04:05 Eosinophils # (Manual) 0.0 K/mm3 (0.0-0.4) 05/12/21 04:05 Basophils # (Manual) 0.0 K/mm3 (0.0-0.1) 05/12/21 04:05 Metamyelocytes # 0.0 K/mm3 05/12/21 04:05 Myelocytes # 0.0 K/mm3 05/12/21 04:05 Promyelocytes # 0.0 K/mm3 05/12/21 04:05 Blast Cells # 0.0 K/mm3 05/12/21 04:05 WBC Morphology Not Reportable 05/12/21 04:05 Hypersegmented Neuts Not Reportable 05/12/21 04:05 Hyposegmented Neuts Not Reportable 05/12/21 04:05 Hypogranular Neuts Not Reportable 05/12/21 04:05 Smudge Cells Not Reportable 05/12/21 04:05 Toxic Granulation Not Reportable 05/12/21 04:05 Toxic Vacuolation Not Reportable 05/12/21 04:05 Dohle Bodies Not Reportable 05/12/21 04:05 Pelger-Huet Anomaly Not Reportable 05/12/21 04:05 Janelle Rods Not Reportable 05/12/21 04:05 Platelet Estimate Consistent w auto 05/12/21 04:05 Clumped Platelets Not Reportable 05/12/21 04:05 Plt Clumps, EDTA Not Reportable 05/12/21 04:05 Large Platelets Not Reportable 05/12/21 04:05 Giant Platelets Not Reportable 05/12/21 04:05 Platelet Satelliting Not Reportable 05/12/21 04:05 Plt Morphology Comment Not Reportable 05/12/21 04:05 RBC Morphology Normal 05/12/21 04:05 Dimorphic RBCs Not Reportable 05/12/21 04:05 Polychromasia Not Reportable 05/12/21 04:05 Hypochromasia Not Reportable 05/12/21 04:05 Poikilocytosis Not Reportable 05/12/21 04:05 Anisocytosis Not Reportable 05/12/21 04:05 Microcytosis Not Reportable 05/12/21 04:05 Macrocytosis Not Reportable 05/12/21 04:05 Spherocytes Not Reportable 05/12/21 04:05 Pappenheimer Bodies Not Reportable 05/12/21 04:05 Sickle Cells Not Reportable 05/12/21 04:05 Target Cells Not Reportable 05/12/21 04:05 Tear Drop Cells Not Reportable 05/12/21 04:05 Ovalocytes Not Reportable 05/12/21 04:05 Helmet Cells Not Reportable 05/12/21 04:05 Ahuja-Gonvick Bodies Not Reportable 05/12/21 04:05 Sawyer Rings Not Reportable 05/12/21 04:05 Oberlin Cells Not Reportable 05/12/21 04:05 Bite Cells Not Reportable 05/12/21 04:05 Crenated Cell Not Reportable 05/12/21 04:05 Elliptocytes Not Reportable 05/12/21 04:05 Acanthocytes (Spur) Not Reportable 05/12/21 04:05 Rouleaux Not Reportable 05/12/21 04:05 Hemoglobin C Crystals Not Reportable 05/12/21 04:05 Schistocytes Not Reportable 05/12/21 04:05 Malaria parasites Not Reportable 05/12/21 04:05 Justin Bodies Not Reportable 05/12/21 04:05 Hem Pathologist Commnt No 05/12/21 04:05 D-Dimer 488.49 ng/mlDDU (0-234) H 06/05/21 05:26 ABG pH 7.403 pH Units (7.350-7.450) 05/14/21 02:23 POC ABG pCO2 45.4 mmHg (32.0-48.0) 05/03/21 04:49 ABG pCO2 50.2 mm Hg 05/14/21 02:23 POC ABG pO2 65.3 mmHg (83-108) L 05/03/21 04:49 ABG pO2 130.3 mm Hg (80.0-90.0) H 05/14/21 02:23 POC ABG HCO3 18.5 05/03/21 04:49 ABG HCO3 30.6 mmol/L (20.0-26.0) H 05/14/21 02:23 ABG O2 Saturation 98.5 % (95.0-99.0) 05/14/21 02:23 ABG O2 Content 17.9 (0.0-44) 05/14/21 02:23 POC ABG Base Excess -8.9 05/03/21 04:49 ABG Base Excess 4.9 mmol/L (-2.0-3.0) H 05/14/21 02:23 ABG Hemoglobin 13.0 gm/dl (12.0-16.0) 05/14/21 02:23 ABG Oxyhemoglobin 87.8 (94-98) L 05/03/21 04:49 ABG Carboxyhemoglobin 1.4 % (0.0-5.0) 05/14/21 02:23 ABG Methemoglobin 0.6 % (0.0-1.5) 05/14/21 02:23 ABG Sodium 133.0 mmol/L (136.0-145.0) L 05/03/21 04:49 ABG Potassium 3.9 mmol/L (3.40-4.50) 05/03/21 04:49 ABG Chloride 97.0 mmol/L (98-107) L 05/03/21 04:49 ABG Glucose 403 mg/dL (65-95) H 05/03/21 04:49 Oxyhemoglobin 96.5 % (95.0-99.0) 05/14/21 02:23 Carboxyhemoglobin 0.6 (0.5-1.5) 05/03/21 04:49 FiO2 90 % 05/14/21 02:23 FiO2 % 100.0 05/03/21 04:49 Sodium 137 mmol/L (137-145) 06/05/21 05:26 Potassium 4.2 mmol/L (3.6-5.0) 06/05/21 05:26 Chloride 99.5 mmol/L (98-107) 06/05/21 05:26 Carbon Dioxide 27 mmol/L (22-30) 06/05/21 05:26 Anion Gap 15 mmol/L 06/05/21 05:26 BUN 17 mg/dL (7-17) 06/05/21 05:26 Creatinine 0.2 mg/dL (0.6-1.2) L 06/05/21 05:26 Estimated GFR > 60 ml/min 06/05/21 05:26 BUN/Creatinine Ratio 85 % 06/05/21 05:26 Glucose 198 mg/dL (65-100) H 06/05/21 05:26 POC Glucose 210 mg/dL (70-105) H 06/10/21 17:45 Hemoglobin A1c 8.5 % (4-6) H 04/18/21 07:36 Calcium 9.0 mg/dL (8.4-10.2) 06/05/21 05:26 Phosphorus 3.60 mg/dL (2.5-4.5) 05/06/21 05:00 Magnesium 2.00 mg/dL (1.7-2.3) 05/06/21 05:00 Ferritin 187.7 ng/mL (10.0-200.0) 06/05/21 05:26 Total Bilirubin 0.30 mg/dL (0.1-1.2) 06/02/21 05:34 AST 22 units/L (5-40) 06/02/21 05:34 ALT 69 units/L (7-56) H 06/02/21 05:34 Alkaline Phosphatase 66 units/L (35-129) 06/02/21 05:34 Lactate Dehydrogenase 475 units/L (91-180) H 06/05/21 05:26 C-Reactive Protein 0.10 mg/dL (0.00-1.30) 06/05/21 05:26 Total Protein 6.1 g/dL (6.3-8.2) L 06/02/21 05:34 Albumin 3.2 g/dL (3.9-5) L 06/02/21 05:34 Albumin/Globulin Ratio 1.1 % 06/02/21 05:34 Triglycerides < 9 mg/dL (2-149) 05/03/21 04:30 Procalcitonin < 0.05 ng/mL (<0.15) 05/23/21 09:50 Arterial Blood Glucose 403 mg/dL (65-95) H 05/03/21 04:49 Arterial Blood Ionized Calcium 4.9 mg/dL (4.6-5.3) 05/03/21 04:49 Coronavirus (PCR) Positive (Negative) A 06/05/21 08:30 Amos/IV: Voiding Method External Female Catheter Active Medications - Current Medications Current Medications: Generic Name Dose Route Start Last Admin Trade Name Freq PRN Reason Stop Dose Admin Acetaminophen 650 mg 04/16/21 14:00 06/09/21 22:37 Acetaminophen 325 Mg Tab PO 650 mg Q4H PRN Administration Pain MILD(1-3)/Fever >100.5/[place] Albuterol 2.5 mg 04/16/21 13:39 04/21/21 20:39 Albuterol 2.5 Mg/3 Ml Nebu IH 2.5 mg Q4HRT PRN Administration Shortness Of Breath Artificial Tears 2 drops 04/28/21 18:15 05/29/21 13:25 Hypromellose 0.5% Ophth Soln 15 Ml OU 2 drops Q4H PRN Administration Dry Eye(s) Ascorbic Acid 500 mg 04/24/21 10:00 06/10/21 10:36 Ascorbic Acid 500 Mg Tab PO 500 mg QDAY TUTU Administration Bisacodyl 10 mg 06/10/21 18:00 Bisacodyl 10 Mg Rect Supp OK QDAY PRN Constipation Cholecalciferol 1,000 unit 04/17/21 10:00 06/10/21 10:37 Cholecalciferol (Vit D3) 1000 Unit (25 Mcg) Tab PO 1,000 unit QDAY TUUT Administration Clonazepam 1 mg 05/29/21 08:06 06/09/21 21:55 Clonazepam 0.5 Mg Tab PO 1 mg Q8H PRN Administration Anxiety Dextrose 50 ml 04/18/21 07:30 04/28/21 09:59 Dextrose 50% In Water (25gm) 50 Ml Syringe IV 50 ml Q30MIN PRN Administration Hypoglycemia Protocol Docusate Sodium 100 mg 04/30/21 10:00 06/10/21 10:37 Docusate Sodium 100 Mg Cap PO 100 mg BID TUTU Administration Enoxaparin Sodium 40 mg 05/19/21 22:00 06/09/21 21:55 Enoxaparin 40 Mg/0.4 Ml Inj SUB-Q 40 mg QDAY@2200 TUTU Administration Protocol Furosemide 40 mg 06/07/21 10:00 06/10/21 10:37 Furosemide 40 Mg/4 Ml Inj IV 40 mg QDAY TUTU Administration Insulin Glargine 25 units 05/04/21 11:05 06/10/21 10:38 Insulin Glargine 100 Units/Ml SUB-Q Not Given DAILY [facility] Insulin Glargine 8 units 06/04/21 18:07 06/09/21 21:56 Insulin Glargine 100 Units/Ml SUB-Q 8 units QHS TUTU Administration Insulin Human Lispro 0 unit 05/18/21 12:00 06/10/21 16:30 Insulin Lispro 100 Unit/Ml SUB-Q 4 unit ACHS TUTU Administration Protocol Lorazepam 1 mg 05/25/21 14:40 06/03/21 15:32 Lorazepam 2 Mg/Ml Vial IV 1 mg Q6H PRN Administration Agitation Magnesium Hydroxide 30 ml 06/07/21 16:30 06/10/21 10:40 Magnesium Hydroxide (Mom) Oral Liqd Udc PO 30 ml QDAY PRN Administration Constipation Methylprednisolone Sodium Succinate 40 mg 05/31/21 11:32 06/10/21 13:49 Methylprednisolone Sod Succinate 125 Mg/2 Ml Inj IV 40 mg Q8HR TUTU Administration Ondansetron HCl 4 mg 04/16/21 14:00 05/30/21 10:07 Ondansetron 4 Mg/2 Ml Inj IV 4 mg Q8H PRN Administration Nausea And Vomiting Senna 17.2 mg 05/02/21 22:00 06/09/21 21:54 Sennosides 8.6 Mg Tab PO 17.2 mg QHS TUTU Administration Sodium Chloride 10 ml 04/16/21 22:00 06/10/21 10:37 Sodium Chloride 0.9% 10 Ml Flush Syringe IV 10 ml BID TUTU Administration Sodium Chloride 10 ml 04/16/21 13:39 05/22/21 15:21 Sodium Chloride 0.9% 10 Ml Flush Syringe IV 10 ml PRN PRN Administration LINE FLUSH Zinc Sulfate 220 mg 04/16/21 22:00 06/10/21 10:37 Zinc Sulfate 220 Mg Cap PO 220 mg BID TUTU Administration Zolpidem Tartrate 10 mg 05/26/21 08:56 06/06/21 23:25 Zolpidem 5 Mg Tab PO 10 mg QHS PRN Administration Insomnia Nutrition/Malnutrition Assess - Dietary Evaluation Nutrition/Malnutrition Findings: Nutrition Notes Start: 04/23/21 07:41 Freq: Status: Active Protocol: Document 06/04/21 11:07 FABIAN (Rec: 06/04/21 11:07 FABIAN [id number]) Nutrition Notes Initial or Follow up Brief Note Current Diagnosis Respiratory Failure Other Pertinent Diagnosis oral thrush, COVID-19 pneu Current Diet GI soft Subjective/Other Information Pt continues to eat 75-100% of meals. Nutrition Intervention Revisit per MD consult or patient Sign Off request:
[2021-06-10] MEDS: ENOXAPARIN 40 MG/0.4 ML INJ SUB-Q SCH (21:49)
[2021-06-10] MEDS: SENNOSIDES 8.6 MG TAB PO SCH (21:51)
[2021-06-10] MEDS: ACETAMINOPHEN 325 MG TAB PO PRN (22:01)
[2021-06-10] MEDS: ZOLPIDEM 5 MG TAB PO PRN (22:01)
[2021-06-11] MEDS: methylPREDNISolone Sod Succinate 125 MG/2 ML INJ IV SCH ×3 (06:03→23:37)
[2021-06-11] MEDS: INSULIN LISPRO 100 UNIT/ML SUB-Q SCH ×4 (07:30→23:40)
[2021-06-11] MEDS: INSULIN GLARGINE 100 UNITS/ML SUB-Q SCH ×3 (08:58→23:38)
--- NOTE | 2021-06-11 09:09 | Progress Note ---
Assessment and Plan 50 y/o female with acute respiratory failure secondary to COVID19 pneumonia. 06/11/21: no new recs, will change to oral steroids tomorrow, continue to prone if able and wean for sats >88% 06/10/21: Will change to oral steroids on Thursday to begin prolonged taper 06/06/21: Continue to wean as tolerated, will drop steroids on tomorrow. 06/04/21: Clinically no change. Will drop steroids down the end of this week. 05/31/21: Clinically no change. Not eligible for LTACH. Encourage Proning. Will drop steroids down to 40 q8 05/29/21: No acute changes clinically. Still on HFNC but not really able to wean. Continue to encourage proning. Will drop steroids further on Thursday. 05/27/21: No improvement over the weekend but also no worsening. No other strategies to offer. Please continue to encourage patient to prone. I dropped steroids on yesterday. Will wean more later in the week. 05/24/21: No new recs again for today. Will see as needed over the weekend but follow chart peripherally for changes. 05/22/21: No new recs for today. Prognosis remains guarded. 05/21/21: Wean as tolerated. Prone if able. Guarded prognosis 05/20/21: COntinue current level of care. 05/17/21: Prone if possible. Wean FiO2 for sats >88%. Continue scheduled ativan. Prognosis is very very guarded. Unfunded so not a candidate for LTACH 05/16/21: Prone if willing. Wean FIO2 if patient will allow. Anxiety control. Prognosis still remains very guarded. 05/15/21: Not sure if MAR is accurate but may have only gotten one dose of scheduled anixolytic therapy. Continue proning as tolerated, and wean FiO2 and flow for sats >88%. Prognosi remains very very guarded to poor. 05/14/21: Will discontinue the buspar and make the ativan scheduled but will do q6 as oppose to q4 and attempt to leave parameters for nursing when not to give. If anxiety could be controlled, feel that patient could be weaned further. She has no funding so she is not a candidate for LTACH. Prone if possible. Guarded prognosis. This is her . 05/13/21: Ordered buspar 10 BID to start with to help with anxiety. Please continue to wean FiO2 as tolerated. Will remind nurse that there is PRN ativan available. Continue higher doses of steroids. Prone if able. 05/12/21: Patient may need something longer acting for anxiety. Per chart has not gotten any ativan in days. Would be ok with either buspar or low dose klonopin bid. COntinue higher doses of steroids as patient seems to be responding. Prone if possible. 05/11/21: Continue high doses of steroids and continue to wean for sats >88%. Please encourage proning. 05/10/21: Will continue this dose of steroid at least through the weekend and assess for improvement. will speak with RT about aggressive weaning. Full dose anticoagulation continues. Very very guarded to poor prognosis. 05/09/21: Going to consider increasing steroids to 125q8, maybe as early as tomorrow. continue full dose anticoagulation. 05/08/21: Continue anticoagulation and steroids. Prone if possible. Anxiety control. No objection to CTA if this can happen. Very very guarded prognosis. 05/07/21: Spoke with IMS, not opposed to full dose anticoagulation. If patient goes back on NRB HFNC combo may need to consider restarting PPN again. Encourage proning. Guarded prognosis. 05/06/21: Continue to wean FiO2 and flow for sats >88%. Tolerating diet now so will stop PPN. Continue anxiety control. Continue IV steroids. Would not object to transfer to COVID floor if bed available. Not sure why she was titrated back up to 100% from 85 as all sats documented in the RT's notes were acceptable. Same for under vital signs as well. 05/03/21: Set back last night from yesterday. Continue bipap therapy for now and attempt HFNC maybe later this afternoon. Continue to use PRN ativan but may need to schedule as she likely took off mask from anxiety. Continue IV steroids. Hold on transfer to COVID Floor. 05/02/21: Continue to wean FiO2 as tolerated for sats >88%. Will continue bipap at night. Patient has no funding so not a candidate for LTACH. Given that she has been stable and not requiring the combo of HFNC and NRB, will consider moving to COVID floor. 05/01/21: Continue to wean FiO2 for sats >88%. A sat of 90 is more than acceptable and oxygen should not be increased for this unless patient desats and remains at a sat lower than 88. Bipap at night to give some form of relief and HFNC during the day. Currently on just this alone which is improvement. Ok with daily diuresis but must monitor renal function and BP closely. She was over diuresed last week and we ended up giving fluid back. Prognosis remains guarded. 04/30/21: Will start CLinimix today for nutritional support, without electrolytes. Check labs in am. Prone if able. Continue precedx for anxiety. Very very guarded prognosis. Attempting our best to not intubate. 04/29/21: Continue precedex. Continue IV solumedrol. Prone if able. Guarded prognosis. 04/28/21: Continue Precedex. Picc team attempting to place line now. Stable on Bipap. Ordered steroids IV solumedrol to start today. Prognosis remains guarded, still at very high risk for intubation. 04/27/21: Hypotension improving/improved. Hold on any further lasix dosing. Continue precedex to help with anxeity. later today please attempt HFNC with NRB if needed. Attempt to feed if possible. Steroids end today, please order solumedrol 40q8 to start tomorrow (04/28/21). guarded prognosis. 04/26/21: Hypotension today, most likely from precedex use and diuresis that I did the last several days. Will bolus again today. Consider midodrine if BP does not respond. 04/25/21: Lasix again today. Keep PRN ativan for now. Hold on precedex for now. Guarded prognosis. Labs ordered for tomorrow. 04/24/21: Lasix today. Will also start patient on low dose PRN ativan. If this does not help will then try precedex. Guarded prognosis. 04/23/21: Prone as tolerated. No lasix today. Continue decadron. Guarded p rognosis. High risk for intubation and high mortality with intubation. 04/19/21: Prone as tolerated during the day and sleep prone at night. Continue IV remdesivir and steroids. Did get actemra. Guarded prognosis. 1. Daily net negative state 2. Prone if possible 3. IV remdesivir. 4. Should be a candidate for Actemra 5. IV steroids 6. Guarded Prognosis Subjective Date of service: 06/11/21 Principal diagnosis: Covid-19 Interval history: Down to 60%, second time this has happened during this hospital stay. Objective Vital Signs - 12hr 06/10/21 06/10/21 06/11/21 22:31 23:35 02:00 Temperature 97.5 F L Pulse Rate 103 H Respiratory 20 Rate Blood Pressure Blood Pressure 108/57 [Left] O2 Sat by Pulse 96 93 97 Oximetry 06/11/21 05:57 Temperature 97.7 F Pulse Rate 75 Respiratory 22 Rate Blood Pressure 105/62 Blood Pressure [Left] O2 Sat by Pulse 93 Oximetry Constitutional: no acute distress, alert Eyes: non-icteric ENT: oropharynx moist Neck: supple Effort: normal Ascultation: Bilateral: diminished breath sounds Cardiovascular: regular rate and rhythm Gastrointestinal: normoactive bowel sounds, soft, non-tender, non-distended Integumentary: normal Extremities: no cyanosis, no edema, pink and warm Neurologic: normal mental status, non-focal exam, pupils equal and round, CN II- XII normal Psychiatric: mood appropriate, affect normal CBC and BMP: 06/02/21 05:34 06/05/21 05:26 ABG, PT/INR, D-dimer: ABG ABG pH 7.403 pH Units (7.350-7.450) 05/14/21 02:23 POC ABG pCO2 45.4 mmHg (32.0-48.0) 05/03/21 04:49 ABG pCO2 50.2 mm Hg 05/14/21 02:23 POC ABG pO2 65.3 mmHg (83-108) L 05/03/21 04:49 ABG pO2 130.3 mm Hg (80.0-90.0) H 05/14/21 02:23 POC ABG HCO3 18.5 05/03/21 04:49 ABG O2 Saturation 98.5 % (95.0-99.0) 05/14/21 02:23 PT/INR, D-dimer D-Dimer 488.49 ng/mlDDU (0-234) H 06/05/21 05:26 Abnormal lab findings: Abnormal Labs 08/12/0204/16/21 04/16/21 11:42 11:42 11:42 WBC MCHC RDW 16.1 H Lymph % (Auto) 7.8 L Lymph # (Auto) 0.8 L Baso # (Auto) Seg Neutrophils % 87.7 H Seg Neuts % (Manual) Lymphocytes % (Manual) Seg Neutrophils # 8.5 H Seg Neutrophils # Man Lymphocytes # (Manual) D-Dimer 338.70 H ABG pH POC ABG pO2 ABG pO2 ABG HCO3 ABG O2 Saturation ABG Base Excess ABG Oxyhemoglobin ABG Sodium ABG Chloride ABG Glucose Oxyhemoglobin Carboxyhemoglobin Sodium Potassium Chloride Carbon Dioxide BUN Creatinine Glucose 194 H POC Glucose Hemoglobin A1c Ferritin AST ALT Alkaline Phosphatase Lactate Dehydrogenase C-Reactive Protein Total Protein 8.4 H Albumin 3.8 L Arterial Blood Glucose Coronavirus (PCR) 04/16/21 04/16/21 04/17/21 11:42 11:42 03:50 WBC MCHC RDW 16.0 H Lymph % (Auto) 7.7 L Lymph # (Auto) 0.6 L Baso # (Auto) Seg Neutrophils % 89.8 H Seg Neuts % (Manual) Lymphocytes % (Manual) Seg Neutrophils # Seg Neutrophils # Man Lymphocytes # (Manual) D-Dimer ABG pH POC ABG pO2 ABG pO2 ABG HCO3 ABG O2 Saturation ABG Base Excess ABG Oxyhemoglobin ABG Sodium ABG Chloride ABG Glucose Oxyhemoglobin Carboxyhemoglobin Sodium Potassium Chloride Carbon Dioxide BUN Creatinine Glucose 195 H POC Glucose Hemoglobin A1c Ferritin 254.3 H AST ALT Alkaline Phosphatase Lactate Dehydrogenase 359 H C-Reactive Protein 15.20 H Total Protein Albumin Arterial Blood Glucose Coronavirus (PCR) 04/17/21 04/17/21 04/17/21 03:50 08:26 08:26 WBC MCHC RDW Lymph % (Auto) Lymph # (Auto) Baso # (Auto) Seg Neutrophils % Seg Neuts % (Manual) Lymphocytes % (Manual) Seg Neutrophils # Seg Neutrophils # Man Lymphocytes # (Manual) D-Dimer 262.48 H ABG pH POC ABG pO2 ABG pO2 ABG HCO3 ABG O2 Saturation ABG Base Excess ABG Oxyhemoglobin ABG Sodium ABG Chloride ABG Glucose Oxyhemoglobin Carboxyhemoglobin Sodium Potassium Chloride Carbon Dioxide BUN 20 H Creatinine 0.5 L Glucose 249 H 225 H POC Glucose Hemoglobin A1c Ferritin AST ALT Alkaline Phosphatase Lactate Dehydrogenase 338 H C-Reactive Protein 17.20 H Total Protein Albumin 3.2 L Arterial Blood Glucose Coronavirus (PCR) 04/17/21 04/17/21 04/17/21 08:26 15:04 Unknown WBC MCHC RDW Lymph % (Auto) Lymph # (Auto) Baso # (Auto) Seg Neutrophils % Seg Neuts % (Manual) Lymphocytes % (Manual) Seg Neutrophils # Seg Neutrophils # Man Lymphocytes # (Manual) D-Dimer ABG pH POC ABG pO2 ABG pO2 ABG HCO3 ABG O2 Saturation ABG Base Excess ABG Oxyhemoglobin ABG Sodium ABG Chloride ABG Glucose Oxyhemoglobin Carboxyhemoglobin Sodium Potassium Chloride Carbon Dioxide BUN 20 H Creatinine 0.5 L Glucose 246 H POC Glucose Hemoglobin A1c Ferritin 392.0 H AST ALT Alkaline Phosphatase Lactate Dehydrogenase C-Reactive Protein Total Protein 8.3 H Albumin 3.1 L Arterial Blood Glucose Coronavirus (PCR) Positive A 04/18/21 04/18/21 04/18/21 05:06 05:06 07:36 WBC 11.6 H MCHC RDW 16.1 H Lymph % (Auto) Lymph # (Auto) Baso # (Auto) Seg Neutrophils % Seg Neuts % (Manual) Lymphocytes % (Manual) Seg Neutrophils # Seg Neutrophils # Man Lymphocytes # (Manual) D-Dimer ABG pH POC ABG pO2 ABG pO2 ABG HCO3 ABG O2 Saturation ABG Base Excess ABG Oxyhemoglobin ABG Sodium ABG Chloride ABG Glucose Oxyhemoglobin Carboxyhemoglobin Sodium Potassium 5.2 H Chloride Carbon Dioxide BUN 22 H Creatinine 0.5 L Glucose 315 H POC Glucose Hemoglobin A1c 8.5 H Ferritin AST ALT Alkaline Phosphatase Lactate Dehydrogenase C-Reactive Protein Total Protein Albumin 3.3 L Arterial Blood Glucose Coronavirus (PCR) 04/18/21 04/18/21 04/18/21 11:59 16:43 23:24 WBC MCHC RDW Lymph % (Auto) Lymph # (Auto) Baso # (Auto) Seg Neutrophils % Seg Neuts % (Manual) Lymphocytes % (Manual) Seg Neutrophils # Seg Neutrophils # Man Lymphocytes # (Manual) D-Dimer ABG pH POC ABG pO2 ABG pO2 ABG HCO3 ABG O2 Saturation ABG Base Excess ABG Oxyhemoglobin ABG Sodium ABG Chloride ABG Glucose Oxyhemoglobin Carboxyhemoglobin Sodium Potassium Chloride Carbon Dioxide BUN Creatinine Glucose POC Glucose 284 H 273 H 290 H Hemoglobin A1c Ferritin AST ALT Alkaline Phosphatase Lactate Dehydrogenase C-Reactive Protein Total Protein Albumin Arterial Blood Glucose Coronavirus (PCR) 04/19/21 04/19/21 04/19/21 04:19 04:19 08:10 WBC MCHC RDW 15.7 H Lymph % (Auto) Lymph # (Auto) Baso # (Auto) Seg Neutrophils % Seg Neuts % (Manual) Lymphocytes % (Manual) Seg Neutrophils # Seg Neutrophils # Man Lymphocytes # (Manual) D-Dimer ABG pH POC ABG pO2 ABG pO2 ABG HCO3 ABG O2 Saturation ABG Base Excess ABG Oxyhemoglobin ABG Sodium ABG Chloride ABG Glucose Oxyhemoglobin Carboxyhemoglobin Sodium Potassium Chloride Carbon Dioxide BUN 27 H Creatinine 0.4 L Glucose 184 H POC Glucose 194 H Hemoglobin A1c Ferritin AST ALT Alkaline Phosphatase Lactate Dehydrogenase C-Reactive Protein Total Protein Albumin 3.1 L Arterial Blood Glucose Coronavirus (PCR) 04/19/21 04/19/21 04/19/21 11:38 16:25 22:04 WBC MCHC RDW Lymph % (Auto) Lymph # (Auto) Baso # (Auto) Seg Neutrophils % Seg Neuts % (Manual) Lymphocytes % (Manual) Seg Neutrophils # Seg Neutrophils # Man Lymphocytes # (Manual) D-Dimer ABG pH POC ABG pO2 ABG pO2 ABG HCO3 ABG O2 Saturation ABG Base Excess ABG Oxyhemoglobin ABG Sodium ABG Chloride ABG Glucose Oxyhemoglobin Carboxyhemoglobin Sodium Potassium Chloride Carbon Dioxide BUN Creatinine Glucose POC Glucose 224 H 297 H 251 H Hemoglobin A1c Ferritin AST ALT Alkaline Phosphatase Lactate Dehydrogenase C-Reactive Protein Total Protein Albumin Arterial Blood Glucose Coronavirus (PCR) 04/20/21 04/20/21 04/20/21 05:28 08:43 16:21 WBC MCHC RDW Lymph % (Auto) Lymph # (Auto) Baso # (Auto) Seg Neutrophils % Seg Neuts % (Manual) Lymphocytes % (Manual) Seg Neutrophils # Seg Neutrophils # Man Lymphocytes # (Manual) D-Dimer ABG pH POC ABG pO2 ABG pO2 ABG HCO3 ABG O2 Saturation ABG Base Excess ABG Oxyhemoglobin ABG Sodium ABG Chloride ABG Glucose Oxyhemoglobin Carboxyhemoglobin Sodium Potassium Chloride Carbon Dioxide BUN 27 H Creatinine Glucose 192 H POC Glucose 173 H 253 H Hemoglobin A1c Ferritin AST ALT Alkaline Phosphatase Lactate Dehydrogenase C-Reactive Protein Total Protein Albumin 3.0 L Arterial Blood Glucose Coronavirus (PCR) 04/21/21 04/21/21 04/21/21 07:58 12:05 16:08 WBC MCHC RDW Lymph % (Auto) Lymph # (Auto) Baso # (Auto) Seg Neutrophils % Seg Neuts % (Manual) Lymphocytes % (Manual) Seg Neutrophils # Seg Neutrophils # Man Lymphocytes # (Manual) D-Dimer ABG pH POC ABG pO2 ABG pO2 ABG HCO3 ABG O2 Saturation ABG Base Excess ABG Oxyhemoglobin ABG Sodium ABG Chloride ABG Glucose Oxyhemoglobin Carboxyhemoglobin Sodium Potassium Chloride Carbon Dioxide BUN Creatinine Glucose POC Glucose 140 H 252 H 214 H Hemoglobin A1c Ferritin AST ALT Alkaline Phosphatase Lactate Dehydrogenase C-Reactive Protein Total Protein Albumin Arterial Blood Glucose Coronavirus (PCR) 04/21/21 04/22/21 04/22/21 21:42 08:37 12:01 WBC MCHC RDW Lymph % (Auto) Lymph # (Auto) Baso # (Auto) Seg Neutrophils % Seg Neuts % (Manual) Lymphocytes % (Manual) Seg Neutrophils # Seg Neutrophils # Man Lymphocytes # (Manual) D-Dimer ABG pH 7.457 H POC ABG pO2 49.4 L ABG pO2 ABG HCO3 ABG O2 Saturation ABG Base Excess ABG Oxyhemoglobin 85.6 L ABG Sodium ABG Chloride ABG Glucose 121 H Oxyhemoglobin Carboxyhemoglobin 0.3 L Sodium Potassium Chloride Carbon Dioxide BUN Creatinine Glucose POC Glucose 162 H 227 H Hemoglobin A1c Ferritin AST ALT Alkaline Phosphatase Lactate Dehydrogenase C-Reactive Protein Total Protein Albumin Arterial Blood Glucose 121 H Coronavirus (PCR) 04/22/21 04/22/21 04/23/21 16:26 22:23 04:52 WBC MCHC RDW 15.7 H Lymph % (Auto) Lymph # (Auto) Baso # (Auto) Seg Neutrophils % Seg Neuts % (Manual) Lymphocytes % (Manual) Seg Neutrophils # Seg Neutrophils # Man Lymphocytes # (Manual) D-Dimer ABG pH POC ABG pO2 ABG pO2 ABG HCO3 ABG O2 Saturation ABG Base Excess ABG Oxyhemoglobin ABG Sodium ABG Chloride ABG Glucose Oxyhemoglobin Carboxyhemoglobin Sodium Potassium Chloride Carbon Dioxide BUN Creatinine Glucose POC Glucose 200 H 136 H Hemoglobin A1c Ferritin AST ALT Alkaline Phosphatase Lactate Dehydrogenase C-Reactive Protein Total Protein Albumin Arterial Blood Glucose Coronavirus (PCR) 04/23/21 04/23/21 04/23/21 04:52 12:06 17:41 WBC MCHC RDW Lymph % (Auto) Lymph # (Auto) Baso # (Auto) Seg Neutrophils % Seg Neuts % (Manual) Lymphocytes % (Manual) Seg Neutrophils # Seg Neutrophils # Man Lymphocytes # (Manual) D-Dimer ABG pH POC ABG pO2 ABG pO2 ABG HCO3 ABG O2 Saturation ABG Base Excess ABG Oxyhemoglobin ABG Sodium ABG Chloride ABG Glucose Oxyhemoglobin Carboxyhemoglobin Sodium 136 L Potassium Chloride 97.7 L Carbon Dioxide BUN 23 H Creatinine Glucose 101 H POC Glucose 202 H 169 H Hemoglobin A1c Ferritin AST 46 H ALT Alkaline Phosphatase Lactate Dehydrogenase C-Reactive Protein Total Protein Albumin 3.3 L Arterial Blood Glucose Coronavirus (PCR) 04/23/21 04/24/21 04/24/21 23:08 05:17 08:38 WBC MCHC RDW Lymph % (Auto) Lymph # (Auto) Baso # (Auto) Seg Neutrophils % Seg Neuts % (Manual) Lymphocytes % (Manual) Seg Neutrophils # Seg Neutrophils # Man Lymphocytes # (Manual) D-Dimer ABG pH POC ABG pO2 ABG pO2 ABG HCO3 ABG O2 Saturation ABG Base Excess ABG Oxyhemoglobin ABG Sodium ABG Chloride ABG Glucose Oxyhemoglobin Carboxyhemoglobin Sodium Potassium Chloride Carbon Dioxide BUN Creatinine Glucose POC Glucose 111 H 108 H 126 H Hemoglobin A1c Ferritin AST ALT Alkaline Phosphatase Lactate Dehydrogenase C-Reactive Protein Total Protein Albumin Arterial Blood Glucose Coronavirus (PCR) 04/24/21 04/24/21 04/24/21 11:54 17:57 21:23 WBC MCHC RDW Lymph % (Auto) Lymph # (Auto) Baso # (Auto) Seg Neutrophils % Seg Neuts % (Manual) Lymphocytes % (Manual) Seg Neutrophils # Seg Neutrophils # Man Lymphocytes # (Manual) D-Dimer ABG pH POC ABG pO2 ABG pO2 ABG HCO3 ABG O2 Saturation ABG Base Excess ABG Oxyhemoglobin ABG Sodium ABG Chloride ABG Glucose Oxyhemoglobin Carboxyhemoglobin Sodium Potassium Chloride Carbon Dioxide BUN Creatinine Glucose POC Glucose 147 H 177 H 138 H Hemoglobin A1c Ferritin AST ALT Alkaline Phosphatase Lactate Dehydrogenase C-Reactive Protein Total Protein Albumin Arterial Blood Glucose Coronavirus (PCR) 04/25/21 04/25/21 04/25/21 07:06 11:23 15:43 WBC MCHC RDW Lymph % (Auto) Lymph # (Auto) Baso # (Auto) Seg Neutrophils % Seg Neuts % (Manual) Lymphocytes % (Manual) Seg Neutrophils # Seg Neutrophils # Man Lymphocytes # (Manual) D-Dimer ABG pH POC ABG pO2 ABG pO2 ABG HCO3 ABG O2 Saturation ABG Base Excess ABG Oxyhemoglobin ABG Sodium ABG Chloride ABG Glucose Oxyhemoglobin Carboxyhemoglobin Sodium Potassium Chloride Carbon Dioxide BUN Creatinine Glucose POC Glucose 147 H 169 H 227 H Hemoglobin A1c Ferritin AST ALT Alkaline Phosphatase Lactate Dehydrogenase C-Reactive Protein Total Protein Albumin Arterial Blood Glucose Coronavirus (PCR) 04/25/21 04/26/21 04/26/21 21:22 02:45 05:15 WBC MCHC RDW Lymph % (Auto) Lymph # (Auto) Baso # (Auto) Seg Neutrophils % Seg Neuts % (Manual) Lymphocytes % (Manual) Seg Neutrophils # Seg Neutrophils # Man Lymphocytes # (Manual) D-Dimer ABG pH POC ABG pO2 70.7 L ABG pO2 ABG HCO3 ABG O2 Saturation ABG Base Excess ABG Oxyhemoglobin 93.0 L ABG Sodium 132.7 L ABG Chloride ABG Glucose 115 H Oxyhemoglobin Carboxyhemoglobin Sodium Potassium Chloride 95.8 L Carbon Dioxide 32 H BUN 20 H Creatinine Glucose 102 H POC Glucose 196 H Hemoglobin A1c Ferritin AST ALT Alkaline Phosphatase Lactate Dehydrogenase C-Reactive Protein Total Protein Albumin Arterial Blood Glucose 115 H Coronavirus (PCR) 04/26/21 04/26/21 04/26/21 11:49 16:09 21:07 WBC MCHC RDW Lymph % (Auto) Lymph # (Auto) Baso # (Auto) Seg Neutrophils % Seg Neuts % (Manual) Lymphocytes % (Manual) Seg Neutrophils # Seg Neutrophils # Man Lymphocytes # (Manual) D-Dimer ABG pH POC ABG pO2 ABG pO2 ABG HCO3 ABG O2 Saturation ABG Base Excess ABG Oxyhemoglobin ABG Sodium ABG Chloride ABG Glucose Oxyhemoglobin Carboxyhemoglobin Sodium Potassium Chloride Carbon Dioxide BUN Creatinine Glucose POC Glucose 114 H 188 H 136 H Hemoglobin A1c Ferritin AST ALT Alkaline Phosphatase Lactate Dehydrogenase C-Reactive Protein Total Protein Albumin Arterial Blood Glucose Coronavirus (PCR) 04/27/21 04/27/21 04/28/21 17:34 22:12 08:26 WBC MCHC RDW Lymph % (Auto) Lymph # (Auto) Baso # (Auto) Seg Neutrophils % Seg Neuts % (Manual) Lymphocytes % (Manual) Seg Neutrophils # Seg Neutrophils # Man Lymphocytes # (Manual) D-Dimer ABG pH POC ABG pO2 ABG pO2 ABG HCO3 ABG O2 Saturation ABG Base Excess ABG Oxyhemoglobin ABG Sodium ABG Chloride ABG Glucose Oxyhemoglobin Carboxyhemoglobin Sodium Potassium Chloride Carbon Dioxide BUN Creatinine Glucose POC Glucose 128 H 159 H 69 L Hemoglobin A1c Ferritin AST ALT Alkaline Phosphatase Lactate Dehydrogenase C-Reactive Protein Total Protein Albumin Arterial Blood Glucose Coronavirus (PCR) 04/28/21 04/28/21 04/29/21 12:22 21:11 06:05 WBC MCHC RDW Lymph % (Auto) Lymph # (Auto) Baso # (Auto) Seg Neutrophils % Seg Neuts % (Manual) Lymphocytes % (Manual) Seg Neutrophils # Seg Neutrophils # Man Lymphocytes # (Manual) D-Dimer ABG pH POC ABG pO2 ABG pO2 ABG HCO3 ABG O2 Saturation ABG Base Excess ABG Oxyhemoglobin ABG Sodium ABG Chloride ABG Glucose Oxyhemoglobin Carboxyhemoglobin Sodium 132 L Potassium Chloride 94.4 L Carbon Dioxide BUN Creatinine 0.2 L D Glucose 140 H POC Glucose 141 H 171 H Hemoglobin A1c Ferritin AST ALT Alkaline Phosphatase Lactate Dehydrogenase C-Reactive Protein Total Protein Albumin Arterial Blood Glucose Coronavirus (PCR) 04/29/21 04/29/21 04/29/21 06:05 07:24 11:36 WBC MCHC 35 H RDW 15.9 H Lymph % (Auto) Lymph # (Auto) Baso # (Auto) Seg Neutrophils % Seg Neuts % (Manual) Lymphocytes % (Manual) Seg Neutrophils # Seg Neutrophils # Man Lymphocytes # (Manual) D-Dimer ABG pH POC ABG pO2 ABG pO2 ABG HCO3 ABG O2 Saturation ABG Base Excess ABG Oxyhemoglobin ABG Sodium ABG Chloride ABG Glucose Oxyhemoglobin Carboxyhemoglobin Sodium Potassium Chloride Carbon Dioxide BUN Creatinine Glucose POC Glucose 141 H 220 H Hemoglobin A1c Ferritin AST ALT Alkaline Phosphatase Lactate Dehydrogenase C-Reactive Protein Total Protein Albumin Arterial Blood Glucose Coronavirus (PCR) 04/29/21 04/29/21 04/29/21 14:23 15:30 17:06 WBC MCHC RDW Lymph % (Auto) Lymph # (Auto) Baso # (Auto) Seg Neutrophils % Seg Neuts % (Manual) Lymphocytes % (Manual) Seg Neutrophils # Seg Neutrophils # Man Lymphocytes # (Manual) D-Dimer ABG pH POC ABG pO2 ABG pO2 52.6 L ABG HCO3 ABG O2 Saturation 86.4 L ABG Base Excess ABG Oxyhemoglobin ABG Sodium ABG Chloride ABG Glucose Oxyhemoglobin 84.6 L Carboxyhemoglobin Sodium Potassium Chloride Carbon Dioxide BUN Creatinine Glucose POC Glucose 173 H 158 H Hemoglobin A1c Ferritin AST ALT Alkaline Phosphatase Lactate Dehydrogenase C-Reactive Protein Total Protein Albumin Arterial Blood Glucose Coronavirus (PCR) 04/29/21 04/30/21 04/30/21 21:27 07:16 08:00 WBC MCHC RDW 16.1 H Lymph % (Auto) Lymph # (Auto) Baso # (Auto) Seg Neutrophils % Seg Neuts % (Manual) Lymphocytes % (Manual) Seg Neutrophils # Seg Neutrophils # Man Lymphocytes # (Manual) D-Dimer ABG pH POC ABG pO2 ABG pO2 ABG HCO3 ABG O2 Saturation ABG Base Excess ABG Oxyhemoglobin ABG Sodium ABG Chloride ABG Glucose Oxyhemoglobin Carboxyhemoglobin Sodium Potassium Chloride Carbon Dioxide BUN Creatinine Glucose POC Glucose 244 H 175 H Hemoglobin A1c Ferritin AST ALT Alkaline Phosphatase Lactate Dehydrogenase C-Reactive Protein Total Protein Albumin Arterial Blood Glucose Coronavirus (PCR) 04/30/21 04/30/21 04/30/21 08:00 08:00 11:03 WBC MCHC RDW Lymph % (Auto) Lymph # (Auto) Baso # (Auto) Seg Neutrophils % Seg Neuts % (Manual) Lymphocytes % (Manual) Seg Neutrophils # Seg Neutrophils # Man Lymphocytes # (Manual) D-Dimer 1796.87 H ABG pH POC ABG pO2 ABG pO2 ABG HCO3 ABG O2 Saturation ABG Base Excess ABG Oxyhemoglobin ABG Sodium ABG Chloride ABG Glucose Oxyhemoglobin Carboxyhemoglobin Sodium 135 L Potassium Chloride 96.3 L Carbon Dioxide BUN Creatinine 0.2 L Glucose 153 H POC Glucose 183 H Hemoglobin A1c Ferritin AST 41 H ALT 76 H Alkaline Phosphatase 160 H Lactate Dehydrogenase 522 H C-Reactive Protein Total Protein 6.1 L Albumin 3.1 L Arterial Blood Glucose Coronavirus (PCR) 04/30/21 04/30/21 05/01/21 17:04 22:17 05:39 WBC MCHC RDW Lymph % (Auto) Lymph # (Auto) Baso # (Auto) Seg Neutrophils % Seg Neuts % (Manual) Lymphocytes % (Manual) Seg Neutrophils # Seg Neutrophils # Man Lymphocytes # (Manual) D-Dimer ABG pH POC ABG pO2 ABG pO2 ABG HCO3 ABG O2 Saturation ABG Base Excess ABG Oxyhemoglobin ABG Sodium ABG Chloride ABG Glucose Oxyhemoglobin Carboxyhemoglobin Sodium 133 L Potassium Chloride 92.1 L Carbon Dioxide BUN 24 H Creatinine 0.4 L D Glucose 269 H POC Glucose 167 H 208 H Hemoglobin A1c Ferritin AST ALT 66 H Alkaline Phosphatase 142 H Lactate Dehydrogenase C-Reactive Protein Total Protein Albumin 3.2 L Arterial Blood Glucose Coronavirus (PCR) 05/01/21 05/01/21 05/01/21 05:39 05:39 07:45 WBC MCHC RDW 16.0 H Lymph % (Auto) Lymph # (Auto) Baso # (Auto) Seg Neutrophils % Seg Neuts % (Manual) Lymphocytes % (Manual) Seg Neutrophils # Seg Neutrophils # Man Lymphocytes # (Manual) D-Dimer 3984.95 H ABG pH POC ABG pO2 ABG pO2 ABG HCO3 ABG O2 Saturation ABG Base Excess ABG Oxyhemoglobin ABG Sodium ABG Chloride ABG Glucose Oxyhemoglobin Carboxyhemoglobin Sodium Potassium Chloride Carbon Dioxide BUN Creatinine Glucose POC Glucose 229 H Hemoglobin A1c Ferritin AST ALT Alkaline Phosphatase Lactate Dehydrogenase C-Reactive Protein Total Protein Albumin Arterial Blood Glucose Coronavirus (PCR) 05/01/21 05/01/21 05/01/21 12:10 15:46 21:06 WBC MCHC RDW Lymph % (Auto) Lymph # (Auto) Baso # (Auto) Seg Neutrophils % Seg Neuts % (Manual) Lymphocytes % (Manual) Seg Neutrophils # Seg Neutrophils # Man Lymphocytes # (Manual) D-Dimer ABG pH POC ABG pO2 ABG pO2 ABG HCO3 ABG O2 Saturation ABG Base Excess ABG Oxyhemoglobin ABG Sodium ABG Chloride ABG Glucose Oxyhemoglobin Carboxyhemoglobin Sodium Potassium Chloride Carbon Dioxide BUN Creatinine Glucose POC Glucose 296 H 279 H 232 H Hemoglobin A1c Ferritin AST ALT Alkaline Phosphatase Lactate Dehydrogenase C-Reactive Protein Total Protein Albumin Arterial Blood Glucose Coronavirus (PCR) 05/02/21 05/02/21 05/02/21 04:55 04:55 04:55 WBC MCHC RDW 16.1 H Lymph % (Auto) Lymph # (Auto) Baso # (Auto) Seg Neutrophils % Seg Neuts % (Manual) Lymphocytes % (Manual) Seg Neutrophils # Seg Neutrophils # Man Lymphocytes # (Manual) D-Dimer 1401.08 H ABG pH POC ABG pO2 ABG pO2 ABG HCO3 ABG O2 Saturation ABG Base Excess ABG Oxyhemoglobin ABG Sodium ABG Chloride ABG Glucose Oxyhemoglobin Carboxyhemoglobin Sodium 131 L Potassium Chloride 95.5 L Carbon Dioxide BUN 20 H Creatinine 0.3 L Glucose 288 H POC Glucose Hemoglobin A1c Ferritin AST ALT Alkaline Phosphatase Lactate Dehydrogenase C-Reactive Protein Total Protein 6.0 L Albumin 3.1 L Arterial Blood Glucose Coronavirus (PCR) 05/02/21 05/02/21 05/02/21 07:53 11:45 15:25 WBC MCHC RDW Lymph % (Auto) Lymph # (Auto) Baso # (Auto) Seg Neutrophils % Seg Neuts % (Manual) Lymphocytes % (Manual) Seg Neutrophils # Seg Neutrophils # Man Lymphocytes # (Manual) D-Dimer ABG pH POC ABG pO2 ABG pO2 ABG HCO3 ABG O2 Saturation ABG Base Excess ABG Oxyhemoglobin ABG Sodium ABG Chloride ABG Glucose Oxyhemoglobin Carboxyhemoglobin Sodium Potassium Chloride Carbon Dioxide BUN Creatinine Glucose POC Glucose 180 H 228 H 275 H Hemoglobin A1c Ferritin AST ALT Alkaline Phosphatase Lactate Dehydrogenase C-Reactive Protein Total Protein Albumin Arterial Blood Glucose Coronavirus (PCR) 05/02/21 05/03/21 05/03/21 22:56 04:30 04:49 WBC MCHC RDW Lymph % (Auto) Lymph # (Auto) Baso # (Auto) Seg Neutrophils % Seg Neuts % (Manual) Lymphocytes % (Manual) Seg Neutrophils # Seg Neutrophils # Man Lymphocytes # (Manual) D-Dimer ABG pH 7.229 L POC ABG pO2 65.3 L ABG pO2 ABG HCO3 ABG O2 Saturation ABG Base Excess ABG Oxyhemoglobin 87.8 L ABG Sodium 133.0 L ABG Chloride 97.0 L ABG Glucose 403 H Oxyhemoglobin Carboxyhemoglobin Sodium 130 L Potassium Chloride 94.9 L Carbon Dioxide BUN 20 H Creatinine 0.5 L D Glucose 359 H POC Glucose 293 H Hemoglobin A1c Ferritin AST 54 H ALT 75 H Alkaline Phosphatase 138 H Lactate Dehydrogenase C-Reactive Protein Total Protein Albumin 3.6 L Arterial Blood Glucose 403 H Coronavirus (PCR) 08/20/21 08/20/21 08/20/21 05:27 11:26 17:57 WBC MCHC RDW Lymph % (Auto) Lymph # (Auto) Baso # (Auto) Seg Neutrophils % Seg Neuts % (Manual) Lymphocytes % (Manual) Seg Neutrophils # Seg Neutrophils # Man Lymphocytes # (Manual) D-Dimer ABG pH POC ABG pO2 ABG pO2 ABG HCO3 ABG O2 Saturation ABG Base Excess ABG Oxyhemoglobin ABG Sodium ABG Chloride ABG Glucose Oxyhemoglobin Carboxyhemoglobin Sodium Potassium Chloride Carbon Dioxide BUN Creatinine Glucose POC Glucose 361 H 297 H 226 H Hemoglobin A1c Ferritin AST ALT Alkaline Phosphatase Lactate Dehydrogenase C-Reactive Protein Total Protein Albumin Arterial Blood Glucose Coronavirus (PCR) 05/03/21 05/04/21 05/04/21 23:12 05:12 07:30 WBC MCHC RDW Lymph % (Auto) Lymph # (Auto) Baso # (Auto) Seg Neutrophils % Seg Neuts % (Manual) Lymphocytes % (Manual) Seg Neutrophils # Seg Neutrophils # Man Lymphocytes # (Manual) D-Dimer ABG pH POC ABG pO2 ABG pO2 ABG HCO3 ABG O2 Saturation ABG Base Excess ABG Oxyhemoglobin ABG Sodium ABG Chloride ABG Glucose Oxyhemoglobin Carboxyhemoglobin Sodium Potassium Chloride Carbon Dioxide BUN Creatinine Glucose POC Glucose 282 H 285 H 254 H Hemoglobin A1c Ferritin AST ALT Alkaline Phosphatase Lactate Dehydrogenase C-Reactive Protein Total Protein Albumin Arterial Blood Glucose Coronavirus (PCR) 05/04/21 05/04/21 05/04/21 08:58 11:45 16:07 WBC MCHC RDW Lymph % (Auto) Lymph # (Auto) Baso # (Auto) Seg Neutrophils % Seg Neuts % (Manual) Lymphocytes % (Manual) Seg Neutrophils # Seg Neutrophils # Man Lymphocytes # (Manual) D-Dimer ABG pH POC ABG pO2 ABG pO2 ABG HCO3 ABG O2 Saturation ABG Base Excess ABG Oxyhemoglobin ABG Sodium ABG Chloride ABG Glucose Oxyhemoglobin Carboxyhemoglobin Sodium 134 L Potassium Chloride Carbon Dioxide BUN 20 H Creatinine 0.3 L Glucose 267 H POC Glucose 244 H 297 H Hemoglobin A1c Ferritin AST ALT Alkaline Phosphatase Lactate Dehydrogenase C-Reactive Protein Total Protein 6.0 L Albumin 3.2 L Arterial Blood Glucose Coronavirus (PCR) 05/04/21 05/05/21 05/05/21 23:32 05:00 05:13 WBC MCHC RDW Lymph % (Auto) Lymph # (Auto) Baso # (Auto) Seg Neutrophils % Seg Neuts % (Manual) Lymphocytes % (Manual) Seg Neutrophils # Seg Neutrophils # Man Lymphocytes # (Manual) D-Dimer ABG pH POC ABG pO2 ABG pO2 ABG HCO3 ABG O2 Saturation ABG Base Excess ABG Oxyhemoglobin ABG Sodium ABG Chloride ABG Glucose Oxyhemoglobin Carboxyhemoglobin Sodium 132 L Potassium Chloride 96.4 L Carbon Dioxide BUN 22 H Creatinine 0.3 L Glucose 228 H POC Glucose 154 H 260 H Hemoglobin A1c Ferritin AST ALT 67 H Alkaline Phosphatase Lactate Dehydrogenase C-Reactive Protein Total Protein 6.1 L Albumin 3.2 L Arterial Blood Glucose Coronavirus (PCR) 05/05/21 05/05/21 05/05/21 11:32 17:49 23:07 WBC MCHC RDW Lymph % (Auto) Lymph # (Auto) Baso # (Auto) Seg Neutrophils % Seg Neuts % (Manual) Lymphocytes % (Manual) Seg Neutrophils # Seg Neutrophils # Man Lymphocytes # (Manual) D-Dimer ABG pH POC ABG pO2 ABG pO2 ABG HCO3 ABG O2 Saturation ABG Base Excess ABG Oxyhemoglobin ABG Sodium ABG Chloride ABG Glucose Oxyhemoglobin Carboxyhemoglobin Sodium Potassium Chloride Carbon Dioxide BUN Creatinine Glucose POC Glucose 279 H 308 H 213 H Hemoglobin A1c Ferritin AST ALT Alkaline Phosphatase Lactate Dehydrogenase C-Reactive Protein Total Protein Albumin Arterial Blood Glucose Coronavirus (PCR) 05/06/21 05/06/21 05/06/21 05:00 05:00 05:20 WBC MCHC RDW 16.8 H Lymph % (Auto) Lymph # (Auto) Baso # (Auto) Seg Neutrophils % Seg Neuts % (Manual) 99.0 H Lymphocytes % (Manual) Seg Neutrophils # Seg Neutrophils # Man 10.9 H Lymphocytes # (Manual) 0.0 L D-Dimer ABG pH POC ABG pO2 ABG pO2 ABG HCO3 ABG O2 Saturation ABG Base Excess ABG Oxyhemoglobin ABG Sodium ABG Chloride ABG Glucose Oxyhemoglobin Carboxyhemoglobin Sodium 133 L Potassium Chloride Carbon Dioxide BUN 21 H Creatinine 0.3 L Glucose 259 H POC Glucose 308 H Hemoglobin A1c Ferritin AST ALT Alkaline Phosphatase Lactate Dehydrogenase C-Reactive Protein Total Protein Albumin 3.2 L Arterial Blood Glucose Coronavirus (PCR) 05/06/21 05/06/21 05/06/21 11:24 17:54 21:32 WBC MCHC RDW Lymph % (Auto) Lymph # (Auto) Baso # (Auto) Seg Neutrophils % Seg Neuts % (Manual) Lymphocytes % (Manual) Seg Neutrophils # Seg Neutrophils # Man Lymphocytes # (Manual) D-Dimer ABG pH POC ABG pO2 ABG pO2 ABG HCO3 ABG O2 Saturation ABG Base Excess ABG Oxyhemoglobin ABG Sodium ABG Chloride ABG Glucose Oxyhemoglobin Carboxyhemoglobin Sodium Potassium Chloride Carbon Dioxide BUN Creatinine Glucose POC Glucose 262 H 124 H 246 H Hemoglobin A1c Ferritin AST ALT Alkaline Phosphatase Lactate Dehydrogenase C-Reactive Protein Total Protein Albumin Arterial Blood Glucose Coronavirus (PCR) 05/06/21 05/07/21 05/07/21 23:10 04:54 04:54 WBC MCHC RDW Lymph % (Auto) Lymph # (Auto) Baso # (Auto) Seg Neutrophils % Seg Neuts % (Manual) Lymphocytes % (Manual) Seg Neutrophils # Seg Neutrophils # Man Lymphocytes # (Manual) D-Dimer 1609.28 H ABG pH POC ABG pO2 ABG pO2 ABG HCO3 ABG O2 Saturation ABG Base Excess ABG Oxyhemoglobin ABG Sodium ABG Chloride ABG Glucose Oxyhemoglobin Carboxyhemoglobin Sodium 136 L Potassium Chloride Carbon Dioxide BUN 23 H Creatinine 0.3 L Glucose 110 H POC Glucose 249 H Hemoglobin A1c Ferritin AST ALT Alkaline Phosphatase Lactate Dehydrogenase C-Reactive Protein Total Protein 6.2 L Albumin 3.0 L Arterial Blood Glucose Coronavirus (PCR) 05/07/21 05/07/21 05/07/21 04:54 04:54 11:41 WBC MCHC RDW Lymph % (Auto) Lymph # (Auto) Baso # (Auto) Seg Neutrophils % Seg Neuts % (Manual) Lymphocytes % (Manual) Seg Neutrophils # Seg Neutrophils # Man Lymphocytes # (Manual) D-Dimer ABG pH POC ABG pO2 ABG pO2 ABG HCO3 ABG O2 Saturation ABG Base Excess ABG Oxyhemoglobin ABG Sodium ABG Chloride ABG Glucose Oxyhemoglobin Carboxyhemoglobin Sodium Potassium Chloride Carbon Dioxide BUN Creatinine Glucose POC Glucose 118 H Hemoglobin A1c Ferritin 296.1 H AST ALT Alkaline Phosphatase Lactate Dehydrogenase 724 H C-Reactive Protein Total Protein Albumin Arterial Blood Glucose Coronavirus (PCR) 0805/07/21 05/08/21 16:43 22:34 06:44 WBC MCHC RDW Lymph % (Auto) Lymph # (Auto) Baso # (Auto) Seg Neutrophils % Seg Neuts % (Manual) Lymphocytes % (Manual) Seg Neutrophils # Seg Neutrophils # Man Lymphocytes # (Manual) D-Dimer ABG pH POC ABG pO2 ABG pO2 ABG HCO3 ABG O2 Saturation ABG Base Excess ABG Oxyhemoglobin ABG Sodium ABG Chloride ABG Glucose Oxyhemoglobin Carboxyhemoglobin Sodium Potassium Chloride Carbon Dioxide BUN Creatinine Glucose POC Glucose 159 H 233 H 235 H Hemoglobin A1c Ferritin AST ALT Alkaline Phosphatase Lactate Dehydrogenase C-Reactive Protein Total Protein Albumin Arterial Blood Glucose Coronavirus (PCR) 05/08/21 05/08/21 05/08/21 07:49 11:56 17:13 WBC MCHC RDW Lymph % (Auto) Lymph # (Auto) Baso # (Auto) Seg Neutrophils % Seg Neuts % (Manual) Lymphocytes % (Manual) Seg Neutrophils # Seg Neutrophils # Man Lymphocytes # (Manual) D-Dimer ABG pH POC ABG pO2 ABG pO2 ABG HCO3 ABG O2 Saturation ABG Base Excess ABG Oxyhemoglobin ABG Sodium ABG Chloride ABG Glucose Oxyhemoglobin Carboxyhemoglobin Sodium Potassium Chloride Carbon Dioxide BUN Creatinine Glucose POC Glucose 219 H 184 H 182 H Hemoglobin A1c Ferritin AST ALT Alkaline Phosphatase Lactate Dehydrogenase C-Reactive Protein Total Protein Albumin Arterial Blood Glucose Coronavirus (PCR) 05/08/21 05/09/21 05/09/21 23:35 05:20 05:20 WBC MCHC RDW Lymph % (Auto) Lymph # (Auto) Baso # (Auto) Seg Neutrophils % Seg Neuts % (Manual) Lymphocytes % (Manual) Seg Neutrophils # Seg Neutrophils # Man Lymphocytes # (Manual) D-Dimer 1003.87 H ABG pH POC ABG pO2 ABG pO2 ABG HCO3 ABG O2 Saturation ABG Base Excess ABG Oxyhemoglobin ABG Sodium ABG Chloride ABG Glucose Oxyhemoglobin Carboxyhemoglobin Sodium Potassium Chloride Carbon Dioxide BUN Creatinine Glucose POC Glucose 198 H Hemoglobin A1c Ferritin 378.7 H AST ALT Alkaline Phosphatase Lactate Dehydrogenase C-Reactive Protein Total Protein Albumin Arterial Blood Glucose Coronavirus (PCR) 05/09/21 05/09/21 05/09/21 05:20 06:04 12:53 WBC MCHC RDW Lymph % (Auto) Lymph # (Auto) Baso # (Auto) Seg Neutrophils % Seg Neuts % (Manual) Lymphocytes % (Manual) Seg Neutrophils # Seg Neutrophils # Man Lymphocytes # (Manual) D-Dimer ABG pH POC ABG pO2 ABG pO2 ABG HCO3 ABG O2 Saturation ABG Base Excess ABG Oxyhemoglobin ABG Sodium ABG Chloride ABG Glucose Oxyhemoglobin Carboxyhemoglobin Sodium Potassium Chloride Carbon Dioxide BUN Creatinine Glucose POC Glucose 159 H 180 H Hemoglobin A1c Ferritin AST ALT Alkaline Phosphatase Lactate Dehydrogenase 558 H C-Reactive Protein 2.40 H Total Protein Albumin Arterial Blood Glucose Coronavirus (PCR) 05/09/21 05/09/21 05/10/21 16:43 21:27 10:18 WBC MCHC RDW Lymph % (Auto) Lymph # (Auto) Baso # (Auto) Seg Neutrophils % Seg Neuts % (Manual) Lymphocytes % (Manual) Seg Neutrophils # Seg Neutrophils # Man Lymphocytes # (Manual) D-Dimer ABG pH POC ABG pO2 ABG pO2 ABG HCO3 ABG O2 Saturation ABG Base Excess ABG Oxyhemoglobin ABG Sodium ABG Chloride ABG Glucose Oxyhemoglobin Carboxyhemoglobin Sodium Potassium Chloride Carbon Dioxide BUN Creatinine Glucose POC Glucose 212 H 285 H 261 H Hemoglobin A1c Ferritin AST ALT Alkaline Phosphatase Lactate Dehydrogenase C-Reactive Protein Total Protein Albumin Arterial Blood Glucose Coronavirus (PCR) 05/10/21 05/10/21 05/11/21 17:58 18:02 00:29 WBC MCHC RDW Lymph % (Auto) Lymph # (Auto) Baso # (Auto) Seg Neutrophils % Seg Neuts % (Manual) Lymphocytes % (Manual) Seg Neutrophils # Seg Neutrophils # Man Lymphocytes # (Manual) D-Dimer ABG pH POC ABG pO2 ABG pO2 ABG HCO3 ABG O2 Saturation ABG Base Excess ABG Oxyhemoglobin ABG Sodium ABG Chloride ABG Glucose Oxyhemoglobin Carboxyhemoglobin Sodium Potassium Chloride Carbon Dioxide BUN Creatinine Glucose POC Glucose 213 H 179 H 149 H Hemoglobin A1c Ferritin AST ALT Alkaline Phosphatase Lactate Dehydrogenase C-Reactive Protein Total Protein Albumin Arterial Blood Glucose Coronavirus (PCR) 05/11/21 05/11/21 05/11/21 05:22 11:32 17:00 WBC 14.9 H MCHC RDW 18.9 H Lymph % (Auto) 4.9 L Lymph # (Auto) 0.7 L Baso # (Auto) 0.2 H Seg Neutrophils % Seg Neuts % (Manual) Lymphocytes % (Manual) Seg Neutrophils # 13.3 H Seg Neutrophils # Man Lymphocytes # (Manual) D-Dimer ABG pH POC ABG pO2 ABG pO2 ABG HCO3 ABG O2 Saturation ABG Base Excess ABG Oxyhemoglobin ABG Sodium ABG Chloride ABG Glucose Oxyhemoglobin Carboxyhemoglobin Sodium Potassium Chloride Carbon Dioxide BUN Creatinine Glucose POC Glucose 162 H 179 H Hemoglobin A1c Ferritin AST ALT Alkaline Phosphatase Lactate Dehydrogenase C-Reactive Protein Total Protein Albumin Arterial Blood Glucose Coronavirus (PCR) 05/11/21 05/11/21 05/11/21 17:00 17:33 22:03 WBC MCHC RDW Lymph % (Auto) Lymph # (Auto) Baso # (Auto) Seg Neutrophils % Seg Neuts % (Manual) Lymphocytes % (Manual) Seg Neutrophils # Seg Neutrophils # Man Lymphocytes # (Manual) D-Dimer ABG pH POC ABG pO2 ABG pO2 ABG HCO3 ABG O2 Saturation ABG Base Excess ABG Oxyhemoglobin ABG Sodium ABG Chloride ABG Glucose Oxyhemoglobin Carboxyhemoglobin Sodium 135 L Potassium Chloride 97.3 L Carbon Dioxide BUN 21 H Creatinine 0.3 L Glucose 133 H POC Glucose 140 H 282 H Hemoglobin A1c Ferritin AST ALT 60 H Alkaline Phosphatase Lactate Dehydrogenase C-Reactive Protein Total Protein Albumin 3.1 L Arterial Blood Glucose Coronavirus (PCR) 05/12/21 05/12/21 05/12/21 04:05 04:05 04:05 WBC MCHC RDW 18.4 H Lymph % (Auto) Lymph # (Auto) Baso # (Auto) Seg Neutrophils % Seg Neuts % (Manual) 94.0 H Lymphocytes % (Manual) 4.0 L Seg Neutrophils # Seg Neutrophils # Man Lymphocytes # (Manual) 0.3 L D-Dimer ABG pH POC ABG pO2 ABG pO2 ABG HCO3 ABG O2 Saturation ABG Base Excess ABG Oxyhemoglobin ABG Sodium ABG Chloride ABG Glucose Oxyhemoglobin Carboxyhemoglobin Sodium 136 L Potassium Chloride Carbon Dioxide BUN 18 H Creatinine 0.2 L Glucose 142 H POC Glucose Hemoglobin A1c Ferritin 350.7 H AST ALT Alkaline Phosphatase Lactate Dehydrogenase 546 H C-Reactive Protein Total Protein 6.1 L Albumin 3.0 L Arterial Blood Glucose Coronavirus (PCR) 05/12/21 05/12/21 05/12/21 05:11 11:17 16:27 WBC MCHC RDW Lymph % (Auto) Lymph # (Auto) Baso # (Auto) Seg Neutrophils % Seg Neuts % (Manual) Lymphocytes % (Manual) Seg Neutrophils # Seg Neutrophils # Man Lymphocytes # (Manual) D-Dimer ABG pH POC ABG pO2 ABG pO2 ABG HCO3 ABG O2 Saturation ABG Base Excess ABG Oxyhemoglobin ABG Sodium ABG Chloride ABG Glucose Oxyhemoglobin Carboxyhemoglobin Sodium Potassium Chloride Carbon Dioxide BUN Creatinine Glucose POC Glucose 152 H 190 H 261 H Hemoglobin A1c Ferritin AST ALT Alkaline Phosphatase Lactate Dehydrogenase C-Reactive Protein Total Protein Albumin Arterial Blood Glucose Coronavirus (PCR) 05/12/21 05/13/21 05/13/21 20:55 11:08 21:41 WBC MCHC RDW Lymph % (Auto) Lymph # (Auto) Baso # (Auto) Seg Neutrophils % Seg Neuts % (Manual) Lymphocytes % (Manual) Seg Neutrophils # Seg Neutrophils # Man Lymphocytes # (Manual) D-Dimer ABG pH POC ABG pO2 ABG pO2 ABG HCO3 ABG O2 Saturation ABG Base Excess ABG Oxyhemoglobin ABG Sodium ABG Chloride ABG Glucose Oxyhemoglobin Carboxyhemoglobin Sodium Potassium Chloride Carbon Dioxide BUN Creatinine Glucose POC Glucose 231 H 106 H 174 H Hemoglobin A1c Ferritin AST ALT Alkaline Phosphatase Lactate Dehydrogenase C-Reactive Protein Total Protein Albumin Arterial Blood Glucose Coronavirus (PCR) 05/14/21 05/14/21 05/14/21 00:53 02:23 06:06 WBC MCHC RDW Lymph % (Auto) Lymph # (Auto) Baso # (Auto) Seg Neutrophils % Seg Neuts % (Manual) Lymphocytes % (Manual) Seg Neutrophils # Seg Neutrophils # Man Lymphocytes # (Manual) D-Dimer ABG pH POC ABG pO2 ABG pO2 130.3 H ABG HCO3 30.6 H ABG O2 Saturation ABG Base Excess 4.9 H ABG Oxyhemoglobin ABG Sodium ABG Chloride ABG Glucose Oxyhemoglobin Carboxyhemoglobin Sodium Potassium Chloride Carbon Dioxide BUN Creatinine Glucose POC Glucose 229 H 119 H Hemoglobin A1c Ferritin AST ALT Alkaline Phosphatase Lactate Dehydrogenase C-Reactive Protein Total Protein Albumin Arterial Blood Glucose Coronavirus (PCR) 05/14/21 05/14/21 05/14/21 07:13 07:13 07:13 WBC MCHC RDW Lymph % (Auto) Lymph # (Auto) Baso # (Auto) Seg Neutrophils % Seg Neuts % (Manual) Lymphocytes % (Manual) Seg Neutrophils # Seg Neutrophils # Man Lymphocytes # (Manual) D-Dimer 712.80 H ABG pH POC ABG pO2 ABG pO2 ABG HCO3 ABG O2 Saturation ABG Base Excess ABG Oxyhemoglobin ABG Sodium ABG Chloride ABG Glucose Oxyhemoglobin Carboxyhemoglobin Sodium 133 L Potassium Chloride 95.5 L Carbon Dioxide 32 H BUN Creatinine 0.2 L Glucose 137 H POC Glucose Hemoglobin A1c Ferritin 283.5 H AST ALT 63 H Alkaline Phosphatase Lactate Dehydrogenase 563 H C-Reactive Protein Total Protein 6.1 L Albumin 3.0 L Arterial Blood Glucose Coronavirus (PCR) 05/14/21 05/14/21 05/14/21 12:21 15:33 21:50 WBC MCHC RDW Lymph % (Auto) Lymph # (Auto) Baso # (Auto) Seg Neutrophils % Seg Neuts % (Manual) Lymphocytes % (Manual) Seg Neutrophils # Seg Neutrophils # Man Lymphocytes # (Manual) D-Dimer ABG pH POC ABG pO2 ABG pO2 ABG HCO3 ABG O2 Saturation ABG Base Excess ABG Oxyhemoglobin ABG Sodium ABG Chloride ABG Glucose Oxyhemoglobin Carboxyhemoglobin Sodium Potassium Chloride Carbon Dioxide BUN Creatinine Glucose POC Glucose 143 H 204 H 202 H Hemoglobin A1c Ferritin AST ALT Alkaline Phosphatase Lactate Dehydrogenase C-Reactive Protein Total Protein Albumin Arterial Blood Glucose Coronavirus (PCR) 05/15/21 05/15/21 05/15/21 05:05 11:12 16:39 WBC MCHC RDW Lymph % (Auto) Lymph # (Auto) Baso # (Auto) Seg Neutrophils % Seg Neuts % (Manual) Lymphocytes % (Manual) Seg Neutrophils # Seg Neutrophils # Man Lymphocytes # (Manual) D-Dimer ABG pH POC ABG pO2 ABG pO2 ABG HCO3 ABG O2 Saturation ABG Base Excess ABG Oxyhemoglobin ABG Sodium ABG Chloride ABG Glucose Oxyhemoglobin Carboxyhemoglobin Sodium Potassium Chloride Carbon Dioxide BUN Creatinine Glucose POC Glucose 125 H 201 H 241 H Hemoglobin A1c Ferritin AST ALT Alkaline Phosphatase Lactate Dehydrogenase C-Reactive Protein Total Protein Albumin Arterial Blood Glucose Coronavirus (PCR) 05/15/21 05/16/21 05/16/21 21:31 05:04 10:40 WBC MCHC RDW Lymph % (Auto) Lymph # (Auto) Baso # (Auto) Seg Neutrophils % Seg Neuts % (Manual) Lymphocytes % (Manual) Seg Neutrophils # Seg Neutrophils # Man Lymphocytes # (Manual) D-Dimer ABG pH POC ABG pO2 ABG pO2 ABG HCO3 ABG O2 Saturation ABG Base Excess ABG Oxyhemoglobin ABG Sodium ABG Chloride ABG Glucose Oxyhemoglobin Carboxyhemoglobin Sodium Potassium Chloride Carbon Dioxide BUN Creatinine Glucose POC Glucose 234 H 123 H 231 H Hemoglobin A1c Ferritin AST ALT Alkaline Phosphatase Lactate Dehydrogenase C-Reactive Protein Total Protein Albumin Arterial Blood Glucose Coronavirus (PCR) 05/16/21 05/16/21 05/17/21 18:23 21:29 06:20 WBC MCHC RDW 18.8 H Lymph % (Auto) 10.2 L Lymph # (Auto) 0.8 L Baso # (Auto) Seg Neutrophils % 85.8 H Seg Neuts % (Manual) Lymphocytes % (Manual) Seg Neutrophils # Seg Neutrophils # Man Lymphocytes # (Manual) D-Dimer ABG pH POC ABG pO2 ABG pO2 ABG HCO3 ABG O2 Saturation ABG Base Excess ABG Oxyhemoglobin ABG Sodium ABG Chloride ABG Glucose Oxyhemoglobin Carboxyhemoglobin Sodium Potassium Chloride Carbon Dioxide BUN Creatinine Glucose POC Glucose 266 H 234 H Hemoglobin A1c Ferritin AST ALT Alkaline Phosphatase Lactate Dehydrogenase C-Reactive Protein Total Protein Albumin Arterial Blood Glucose Coronavirus (PCR) 05/17/21 05/17/21 05/17/21 06:20 11:06 16:36 WBC MCHC RDW Lymph % (Auto) Lymph # (Auto) Baso # (Auto) Seg Neutrophils % Seg Neuts % (Manual) Lymphocytes % (Manual) Seg Neutrophils # Seg Neutrophils # Man Lymphocytes # (Manual) D-Dimer ABG pH POC ABG pO2 ABG pO2 ABG HCO3 ABG O2 Saturation ABG Base Excess ABG Oxyhemoglobin ABG Sodium ABG Chloride ABG Glucose Oxyhemoglobin Carboxyhemoglobin Sodium Potassium Chloride Carbon Dioxide 33 H BUN Creatinine 0.2 L Glucose 101 H POC Glucose 209 H 180 H Hemoglobin A1c Ferritin AST ALT Alkaline Phosphatase Lactate Dehydrogenase C-Reactive Protein Total Protein Albumin Arterial Blood Glucose Coronavirus (PCR) 05/17/21 05/18/21 05/18/21 21:06 12:00 15:06 WBC MCHC RDW Lymph % (Auto) Lymph # (Auto) Baso # (Auto) Seg Neutrophils % Seg Neuts % (Manual) Lymphocytes % (Manual) Seg Neutrophils # Seg Neutrophils # Man Lymphocytes # (Manual) D-Dimer 874.02 H ABG pH POC ABG pO2 ABG pO2 ABG HCO3 ABG O2 Saturation ABG Base Excess ABG Oxyhemoglobin ABG Sodium ABG Chloride ABG Glucose Oxyhemoglobin Carboxyhemoglobin Sodium Potassium Chloride Carbon Dioxide BUN Creatinine Glucose POC Glucose 256 H 139 H Hemoglobin A1c Ferritin AST ALT Alkaline Phosphatase Lactate Dehydrogenase C-Reactive Protein Total Protein Albumin Arterial Blood Glucose Coronavirus (PCR) 05/18/21 05/18/21 05/18/21 15:06 15:06 16:08 WBC MCHC RDW Lymph % (Auto) Lymph # (Auto) Baso # (Auto) Seg Neutrophils % Seg Neuts % (Manual) Lymphocytes % (Manual) Seg Neutrophils # Seg Neutrophils # Man Lymphocytes # (Manual) D-Dimer ABG pH POC ABG pO2 ABG pO2 ABG HCO3 ABG O2 Saturation ABG Base Excess ABG Oxyhemoglobin ABG Sodium ABG Chloride ABG Glucose Oxyhemoglobin Carboxyhemoglobin Sodium Potassium Chloride Carbon Dioxide BUN Creatinine Glucose POC Glucose 178 H Hemoglobin A1c Ferritin 289.6 H AST ALT Alkaline Phosphatase Lactate Dehydrogenase 605 H C-Reactive Protein Total Protein Albumin Arterial Blood Glucose Coronavirus (PCR) 05/18/21 05/19/21 05/19/21 21:22 11:57 15:26 WBC MCHC RDW Lymph % (Auto) Lymph # (Auto) Baso # (Auto) Seg Neutrophils % Seg Neuts % (Manual) Lymphocytes % (Manual) Seg Neutrophils # Seg Neutrophils # Man Lymphocytes # (Manual) D-Dimer ABG pH POC ABG pO2 ABG pO2 ABG HCO3 ABG O2 Saturation ABG Base Excess ABG Oxyhemoglobin ABG Sodium ABG Chloride ABG Glucose Oxyhemoglobin Carboxyhemoglobin Sodium Potassium Chloride Carbon Dioxide BUN Creatinine Glucose POC Glucose 241 H 201 H 209 H Hemoglobin A1c Ferritin AST ALT Alkaline Phosphatase Lactate Dehydrogenase C-Reactive Protein Total Protein Albumin Arterial Blood Glucose Coronavirus (PCR) 05/19/21 05/20/21 05/20/21 20:59 07:38 08:01 WBC MCHC RDW 19.7 H Lymph % (Auto) 8.3 L Lymph # (Auto) 0.8 L Baso # (Auto) Seg Neutrophils % 88.6 H Seg Neuts % (Manual) Lymphocytes % (Manual) Seg Neutrophils # 8.4 H Seg Neutrophils # Man Lymphocytes # (Manual) D-Dimer ABG pH POC ABG pO2 ABG pO2 ABG HCO3 ABG O2 Saturation ABG Base Excess ABG Oxyhemoglobin ABG Sodium ABG Chloride ABG Glucose Oxyhemoglobin Carboxyhemoglobin Sodium Potassium Chloride Carbon Dioxide BUN Creatinine Glucose POC Glucose 226 H 130 H Hemoglobin A1c Ferritin AST ALT Alkaline Phosphatase Lactate Dehydrogenase C-Reactive Protein Total Protein Albumin Arterial Blood Glucose Coronavirus (PCR) 05/20/21 05/20/21 05/20/21 08:01 11:00 16:43 WBC MCHC RDW Lymph % (Auto) Lymph # (Auto) Baso # (Auto) Seg Neutrophils % Seg Neuts % (Manual) Lymphocytes % (Manual) Seg Neutrophils # Seg Neutrophils # Man Lymphocytes # (Manual) D-Dimer ABG pH POC ABG pO2 ABG pO2 ABG HCO3 ABG O2 Saturation ABG Base Excess ABG Oxyhemoglobin ABG Sodium ABG Chloride ABG Glucose Oxyhemoglobin Carboxyhemoglobin Sodium Potassium Chloride Carbon Dioxide BUN 18 H Creatinine 0.2 L Glucose 132 H POC Glucose 237 H 240 H Hemoglobin A1c Ferritin AST ALT Alkaline Phosphatase Lactate Dehydrogenase C-Reactive Protein Total Protein Albumin Arterial Blood Glucose Coronavirus (PCR) 05/20/21 05/21/21 05/21/21 21:21 07:35 11:32 WBC MCHC RDW Lymph % (Auto) Lymph # (Auto) Baso # (Auto) Seg Neutrophils % Seg Neuts % (Manual) Lymphocytes % (Manual) Seg Neutrophils # Seg Neutrophils # Man Lymphocytes # (Manual) D-Dimer ABG pH POC ABG pO2 ABG pO2 ABG HCO3 ABG O2 Saturation ABG Base Excess ABG Oxyhemoglobin ABG Sodium ABG Chloride ABG Glucose Oxyhemoglobin Carboxyhemoglobin Sodium Potassium Chloride Carbon Dioxide BUN Creatinine Glucose POC Glucose 241 H 162 H 171 H Hemoglobin A1c Ferritin AST ALT Alkaline Phosphatase Lactate Dehydrogenase C-Reactive Protein Total Protein Albumin Arterial Blood Glucose Coronavirus (PCR) 05/21/21 05/21/21 05/22/21 16:22 20:43 05:14 WBC MCHC RDW Lymph % (Auto) Lymph # (Auto) Baso # (Auto) Seg Neutrophils % Seg Neuts % (Manual) Lymphocytes % (Manual) Seg Neutrophils # Seg Neutrophils # Man Lymphocytes # (Manual) D-Dimer ABG pH POC ABG pO2 ABG pO2 ABG HCO3 ABG O2 Saturation ABG Base Excess ABG Oxyhemoglobin ABG Sodium ABG Chloride ABG Glucose Oxyhemoglobin Carboxyhemoglobin Sodium Potassium Chloride Carbon Dioxide BUN Creatinine Glucose POC Glucose 244 H 299 H 140 H Hemoglobin A1c Ferritin AST ALT Alkaline Phosphatase Lactate Dehydrogenase C-Reactive Protein Total Protein Albumin Arterial Blood Glucose Coronavirus (PCR) 05/22/21 05/22/21 05/22/21 08:45 11:54 16:15 WBC MCHC RDW Lymph % (Auto) Lymph # (Auto) Baso # (Auto) Seg Neutrophils % Seg Neuts % (Manual) Lymphocytes % (Manual) Seg Neutrophils # Seg Neutrophils # Man Lymphocytes # (Manual) D-Dimer ABG pH POC ABG pO2 ABG pO2 ABG HCO3 ABG O2 Saturation ABG Base Excess ABG Oxyhemoglobin ABG Sodium ABG Chloride ABG Glucose Oxyhemoglobin Carboxyhemoglobin Sodium Potassium Chloride Carbon Dioxide BUN Creatinine Glucose POC Glucose 133 H 265 H 221 H Hemoglobin A1c Ferritin AST ALT Alkaline Phosphatase Lactate Dehydrogenase C-Reactive Protein Total Protein Albumin Arterial Blood Glucose Coronavirus (PCR) 05/22/21 05/23/21 05/23/21 21:43 08:20 09:50 WBC MCHC RDW Lymph % (Auto) Lymph # (Auto) Baso # (Auto) Seg Neutrophils % Seg Neuts % (Manual) Lymphocytes % (Manual) Seg Neutrophils # Seg Neutrophils # Man Lymphocytes # (Manual) D-Dimer 910.38 H ABG pH POC ABG pO2 ABG pO2 ABG HCO3 ABG O2 Saturation ABG Base Excess ABG Oxyhemoglobin ABG Sodium ABG Chloride ABG Glucose Oxyhemoglobin Carboxyhemoglobin Sodium Potassium Chloride Carbon Dioxide BUN Creatinine Glucose POC Glucose 262 H 140 H Hemoglobin A1c Ferritin AST ALT Alkaline Phosphatase Lactate Dehydrogenase C-Reactive Protein Total Protein Albumin Arterial Blood Glucose Coronavirus (PCR) 05/23/21 05/23/21 05/23/21 09:50 09:50 10:52 WBC MCHC RDW Lymph % (Auto) Lymph # (Auto) Baso # (Auto) Seg Neutrophils % Seg Neuts % (Manual) Lymphocytes % (Manual) Seg Neutrophils # Seg Neutrophils # Man Lymphocytes # (Manual) D-Dimer ABG pH POC ABG pO2 ABG pO2 ABG HCO3 ABG O2 Saturation ABG Base Excess ABG Oxyhemoglobin ABG Sodium ABG Chloride ABG Glucose Oxyhemoglobin Carboxyhemoglobin Sodium Potassium Chloride Carbon Dioxide BUN Creatinine Glucose POC Glucose 241 H Hemoglobin A1c Ferritin 244.9 H AST ALT Alkaline Phosphatase Lactate Dehydrogenase 584 H C-Reactive Protein Total Protein Albumin Arterial Blood Glucose Coronavirus (PCR) 05/23/21 05/23/21 05/24/21 17:24 21:52 07:44 WBC MCHC RDW Lymph % (Auto) Lymph # (Auto) Baso # (Auto) Seg Neutrophils % Seg Neuts % (Manual) Lymphocytes % (Manual) Seg Neutrophils # Seg Neutrophils # Man Lymphocytes # (Manual) D-Dimer ABG pH POC ABG pO2 ABG pO2 ABG HCO3 ABG O2 Saturation ABG Base Excess ABG Oxyhemoglobin ABG Sodium ABG Chloride ABG Glucose Oxyhemoglobin Carboxyhemoglobin Sodium Potassium Chloride Carbon Dioxide BUN Creatinine Glucose POC Glucose 197 H 289 H 161 H Hemoglobin A1c Ferritin AST ALT Alkaline Phosphatase Lactate Dehydrogenase C-Reactive Protein Total Protein Albumin Arterial Blood Glucose Coronavirus (PCR) 05/24/21 05/24/21 05/24/21 11:17 17:51 21:26 WBC MCHC RDW Lymph % (Auto) Lymph # (Auto) Baso # (Auto) Seg Neutrophils % Seg Neuts % (Manual) Lymphocytes % (Manual) Seg Neutrophils # Seg Neutrophils # Man Lymphocytes # (Manual) D-Dimer ABG pH POC ABG pO2 ABG pO2 ABG HCO3 ABG O2 Saturation ABG Base Excess ABG Oxyhemoglobin ABG Sodium ABG Chloride ABG Glucose Oxyhemoglobin Carboxyhemoglobin Sodium Potassium Chloride Carbon Dioxide BUN Creatinine Glucose POC Glucose 308 H 175 H 198 H Hemoglobin A1c Ferritin AST ALT Alkaline Phosphatase Lactate Dehydrogenase C-Reactive Protein Total Protein Albumin Arterial Blood Glucose Coronavirus (PCR) 05/25/21 05/25/21 05/25/21 08:14 11:13 17:13 WBC MCHC RDW Lymph % (Auto) Lymph # (Auto) Baso # (Auto) Seg Neutrophils % Seg Neuts % (Manual) Lymphocytes % (Manual) Seg Neutrophils # Seg Neutrophils # Man Lymphocytes # (Manual) D-Dimer ABG pH POC ABG pO2 ABG pO2 ABG HCO3 ABG O2 Saturation ABG Base Excess ABG Oxyhemoglobin ABG Sodium ABG Chloride ABG Glucose Oxyhemoglobin Carboxyhemoglobin Sodium Potassium Chloride Carbon Dioxide BUN Creatinine Glucose POC Glucose 203 H 339 H 235 H Hemoglobin A1c Ferritin AST ALT Alkaline Phosphatase Lactate Dehydrogenase C-Reactive Protein Total Protein Albumin Arterial Blood Glucose Coronavirus (PCR) 05/25/21 05/26/21 05/26/21 21:03 07:33 11:19 WBC MCHC RDW Lymph % (Auto) Lymph # (Auto) Baso # (Auto) Seg Neutrophils % Seg Neuts % (Manual) Lymphocytes % (Manual) Seg Neutrophils # Seg Neutrophils # Man Lymphocytes # (Manual) D-Dimer ABG pH POC ABG pO2 ABG pO2 ABG HCO3 ABG O2 Saturation ABG Base Excess ABG Oxyhemoglobin ABG Sodium ABG Chloride ABG Glucose Oxyhemoglobin Carboxyhemoglobin Sodium Potassium Chloride Carbon Dioxide BUN Creatinine Glucose POC Glucose 263 H 156 H 288 H Hemoglobin A1c Ferritin AST ALT Alkaline Phosphatase Lactate Dehydrogenase C-Reactive Protein Total Protein Albumin Arterial Blood Glucose Coronavirus (PCR) 05/26/21 05/26/21 05/27/21 16:26 20:55 07:38 WBC MCHC RDW Lymph % (Auto) Lymph # (Auto) Baso # (Auto) Seg Neutrophils % Seg Neuts % (Manual) Lymphocytes % (Manual) Seg Neutrophils # Seg Neutrophils # Man Lymphocytes # (Manual) D-Dimer ABG pH POC ABG pO2 ABG pO2 ABG HCO3 ABG O2 Saturation ABG Base Excess ABG Oxyhemoglobin ABG Sodium ABG Chloride ABG Glucose Oxyhemoglobin Carboxyhemoglobin Sodium Potassium Chloride Carbon Dioxide BUN Creatinine Glucose POC Glucose 286 H 293 H 115 H Hemoglobin A1c Ferritin AST ALT Alkaline Phosphatase Lactate Dehydrogenase C-Reactive Protein Total Protein Albumin Arterial Blood Glucose Coronavirus (PCR) 05/27/21 05/27/21 05/27/21 11:46 15:58 21:02 WBC MCHC RDW Lymph % (Auto) Lymph # (Auto) Baso # (Auto) Seg Neutrophils % Seg Neuts % (Manual) Lymphocytes % (Manual) Seg Neutrophils # Seg Neutrophils # Man Lymphocytes # (Manual) D-Dimer ABG pH POC ABG pO2 ABG pO2 ABG HCO3 ABG O2 Saturation ABG Base Excess ABG Oxyhemoglobin ABG Sodium ABG Chloride ABG Glucose Oxyhemoglobin Carboxyhemoglobin Sodium Potassium Chloride Carbon Dioxide BUN Creatinine Glucose POC Glucose 260 H 318 H 246 H Hemoglobin A1c Ferritin AST ALT Alkaline Phosphatase Lactate Dehydrogenase C-Reactive Protein Total Protein Albumin Arterial Blood Glucose Coronavirus (PCR) 05/28/21 05/28/21 05/28/21 07:34 11:31 16:36 WBC MCHC RDW Lymph % (Auto) Lymph # (Auto) Baso # (Auto) Seg Neutrophils % Seg Neuts % (Manual) Lymphocytes % (Manual) Seg Neutrophils # Seg Neutrophils # Man Lymphocytes # (Manual) D-Dimer ABG pH POC ABG pO2 ABG pO2 ABG HCO3 ABG O2 Saturation ABG Base Excess ABG Oxyhemoglobin ABG Sodium ABG Chloride ABG Glucose Oxyhemoglobin Carboxyhemoglobin Sodium Potassium Chloride Carbon Dioxide BUN Creatinine Glucose POC Glucose 185 H 297 H 183 H Hemoglobin A1c Ferritin AST ALT Alkaline Phosphatase Lactate Dehydrogenase C-Reactive Protein Total Protein Albumin Arterial Blood Glucose Coronavirus (PCR) 05/28/21 05/29/21 05/29/21 21:19 07:34 11:19 WBC MCHC RDW Lymph % (Auto) Lymph # (Auto) Baso # (Auto) Seg Neutrophils % Seg Neuts % (Manual) Lymphocytes % (Manual) Seg Neutrophils # Seg Neutrophils # Man Lymphocytes # (Manual) D-Dimer ABG pH POC ABG pO2 ABG pO2 ABG HCO3 ABG O2 Saturation ABG Base Excess ABG Oxyhemoglobin ABG Sodium ABG Chloride ABG Glucose Oxyhemoglobin Carboxyhemoglobin Sodium Potassium Chloride Carbon Dioxide BUN Creatinine Glucose POC Glucose 274 H 139 H 293 H Hemoglobin A1c Ferritin AST ALT Alkaline Phosphatase Lactate Dehydrogenase C-Reactive Protein Total Protein Albumin Arterial Blood Glucose Coronavirus (PCR) 05/29/21 05/29/21 05/30/21 16:36 22:44 05:55 WBC MCHC RDW 21.3 H Lymph % (Auto) 8.0 L Lymph # (Auto) 0.6 L Baso # (Auto) Seg Neutrophils % 88.6 H Seg Neuts % (Manual) Lymphocytes % (Manual) Seg Neutrophils # Seg Neutrophils # Man Lymphocytes # (Manual) D-Dimer ABG pH POC ABG pO2 ABG pO2 ABG HCO3 ABG O2 Saturation ABG Base Excess ABG Oxyhemoglobin ABG Sodium ABG Chloride ABG Glucose Oxyhemoglobin Carboxyhemoglobin Sodium Potassium Chloride Carbon Dioxide BUN Creatinine Glucose POC Glucose 299 H 160 H Hemoglobin A1c Ferritin AST ALT Alkaline Phosphatase Lactate Dehydrogenase C-Reactive Protein Total Protein Albumin Arterial Blood Glucose Coronavirus (PCR) 05/30/21 05/30/21 05/30/21 05:55 08:04 11:13 WBC MCHC RDW Lymph % (Auto) Lymph # (Auto) Baso # (Auto) Seg Neutrophils % Seg Neuts % (Manual) Lymphocytes % (Manual) Seg Neutrophils # Seg Neutrophils # Man Lymphocytes # (Manual) D-Dimer ABG pH POC ABG pO2 ABG pO2 ABG HCO3 ABG O2 Saturation ABG Base Excess ABG Oxyhemoglobin ABG Sodium ABG Chloride ABG Glucose Oxyhemoglobin Carboxyhemoglobin Sodium Potassium Chloride Carbon Dioxide BUN 19 H Creatinine 0.2 L Glucose 209 H POC Glucose 157 H 275 H Hemoglobin A1c Ferritin AST ALT Alkaline Phosphatase Lactate Dehydrogenase C-Reactive Protein Total Protein Albumin Arterial Blood Glucose Coronavirus (PCR) 05/30/21 05/30/21 05/31/21 17:08 22:12 07:36 WBC MCHC RDW Lymph % (Auto) Lymph # (Auto) Baso # (Auto) Seg Neutrophils % Seg Neuts % (Manual) Lymphocytes % (Manual) Seg Neutrophils # Seg Neutrophils # Man Lymphocytes # (Manual) D-Dimer ABG pH POC ABG pO2 ABG pO2 ABG HCO3 ABG O2 Saturation ABG Base Excess ABG Oxyhemoglobin ABG Sodium ABG Chloride ABG Glucose Oxyhemoglobin Carboxyhemoglobin Sodium Potassium Chloride Carbon Dioxide BUN Creatinine Glucose POC Glucose 154 H 275 H 138 H Hemoglobin A1c Ferritin AST ALT Alkaline Phosphatase Lactate Dehydrogenase C-Reactive Protein Total Protein Albumin Arterial Blood Glucose Coronavirus (PCR) 05/31/21 05/31/21 05/31/21 11:17 16:55 21:25 WBC MCHC RDW Lymph % (Auto) Lymph # (Auto) Baso # (Auto) Seg Neutrophils % Seg Neuts % (Manual) Lymphocytes % (Manual) Seg Neutrophils # Seg Neutrophils # Man Lymphocytes # (Manual) D-Dimer ABG pH POC ABG pO2 ABG pO2 ABG HCO3 ABG O2 Saturation ABG Base Excess ABG Oxyhemoglobin ABG Sodium ABG Chloride ABG Glucose Oxyhemoglobin Carboxyhemoglobin Sodium Potassium Chloride Carbon Dioxide BUN Creatinine Glucose POC Glucose 258 H 215 H 318 H Hemoglobin A1c Ferritin AST ALT Alkaline Phosphatase Lactate Dehydrogenase C-Reactive Protein Total Protein Albumin Arterial Blood Glucose Coronavirus (PCR) 06/01/21 06/01/21 06/01/21 07:23 11:38 16:52 WBC MCHC RDW Lymph % (Auto) Lymph # (Auto) Baso # (Auto) Seg Neutrophils % Seg Neuts % (Manual) Lymphocytes % (Manual) Seg Neutrophils # Seg Neutrophils # Man Lymphocytes # (Manual) D-Dimer ABG pH POC ABG pO2 ABG pO2 ABG HCO3 ABG O2 Saturation ABG Base Excess ABG Oxyhemoglobin ABG Sodium ABG Chloride ABG Glucose Oxyhemoglobin Carboxyhemoglobin Sodium Potassium Chloride Carbon Dioxide BUN Creatinine Glucose POC Glucose 157 H 259 H 150 H Hemoglobin A1c Ferritin AST ALT Alkaline Phosphatase Lactate Dehydrogenase C-Reactive Protein Total Protein Albumin Arterial Blood Glucose Coronavirus (PCR) 06/01/21 06/02/21 06/02/21 23:16 05:34 05:34 WBC MCHC RDW 21.3 H Lymph % (Auto) 9.6 L Lymph # (Auto) 0.6 L Baso # (Auto) Seg Neutrophils % 86.2 H Seg Neuts % (Manual) Lymphocytes % (Manual) Seg Neutrophils # Seg Neutrophils # Man Lymphocytes # (Manual) D-Dimer ABG pH POC ABG pO2 ABG pO2 ABG HCO3 ABG O2 Saturation ABG Base Excess ABG Oxyhemoglobin ABG Sodium ABG Chloride ABG Glucose Oxyhemoglobin Carboxyhemoglobin Sodium 136 L Potassium Chloride Carbon Dioxide BUN Creatinine 0.2 L Glucose 186 H POC Glucose 247 H Hemoglobin A1c Ferritin AST ALT 69 H Alkaline Phosphatase Lactate Dehydrogenase C-Reactive Protein Total Protein 6.1 L Albumin 3.2 L Arterial Blood Glucose Coronavirus (PCR) 06/02/21 06/02/21 06/02/21 11:25 18:23 21:32 WBC MCHC RDW Lymph % (Auto) Lymph # (Auto) Baso # (Auto) Seg Neutrophils % Seg Neuts % (Manual) Lymphocytes % (Manual) Seg Neutrophils # Seg Neutrophils # Man Lymphocytes # (Manual) D-Dimer ABG pH POC ABG pO2 ABG pO2 ABG HCO3 ABG O2 Saturation ABG Base Excess ABG Oxyhemoglobin ABG Sodium ABG Chloride ABG Glucose Oxyhemoglobin Carboxyhemoglobin Sodium Potassium Chloride Carbon Dioxide BUN Creatinine Glucose POC Glucose 157 H 299 H 246 H Hemoglobin A1c Ferritin AST ALT Alkaline Phosphatase Lactate Dehydrogenase C-Reactive Protein Total Protein Albumin Arterial Blood Glucose Coronavirus (PCR) 06/03/21 06/03/21 06/03/21 08:12 12:21 17:31 WBC MCHC RDW Lymph % (Auto) Lymph # (Auto) Baso # (Auto) Seg Neutrophils % Seg Neuts % (Manual) Lymphocytes % (Manual) Seg Neutrophils # Seg Neutrophils # Man Lymphocytes # (Manual) D-Dimer ABG pH POC ABG pO2 ABG pO2 ABG HCO3 ABG O2 Saturation ABG Base Excess ABG Oxyhemoglobin ABG Sodium ABG Chloride ABG Glucose Oxyhemoglobin Carboxyhemoglobin Sodium Potassium Chloride Carbon Dioxide BUN Creatinine Glucose POC Glucose 153 H 302 H 252 H Hemoglobin A1c Ferritin AST ALT Alkaline Phosphatase Lactate Dehydrogenase C-Reactive Protein Total Protein Albumin Arterial Blood Glucose Coronavirus (PCR) 06/03/21 06/04/21 06/04/21 22:08 11:12 16:01 WBC MCHC RDW Lymph % (Auto) Lymph # (Auto) Baso # (Auto) Seg Neutrophils % Seg Neuts % (Manual) Lymphocytes % (Manual) Seg Neutrophils # Seg Neutrophils # Man Lymphocytes # (Manual) D-Dimer ABG pH POC ABG pO2 ABG pO2 ABG HCO3 ABG O2 Saturation ABG Base Excess ABG Oxyhemoglobin ABG Sodium ABG Chloride ABG Glucose Oxyhemoglobin Carboxyhemoglobin Sodium Potassium Chloride Carbon Dioxide BUN Creatinine Glucose POC Glucose 224 H 259 H 238 H Hemoglobin A1c Ferritin AST ALT Alkaline Phosphatase Lactate Dehydrogenase C-Reactive Protein Total Protein Albumin Arterial Blood Glucose Coronavirus (PCR) 06/04/21 06/05/21 06/05/21 21:26 05:26 05:26 WBC MCHC RDW Lymph % (Auto) Lymph # (Auto) Baso # (Auto) Seg Neutrophils % Seg Neuts % (Manual) Lymphocytes % (Manual) Seg Neutrophils # Seg Neutrophils # Man Lymphocytes # (Manual) D-Dimer 488.49 H ABG pH POC ABG pO2 ABG pO2 ABG HCO3 ABG O2 Saturation ABG Base Excess ABG Oxyhemoglobin ABG Sodium ABG Chloride ABG Glucose Oxyhemoglobin Carboxyhemoglobin Sodium Potassium Chloride Carbon Dioxide BUN Creatinine 0.2 L Glucose 198 H POC Glucose 257 H Hemoglobin A1c Ferritin AST ALT Alkaline Phosphatase Lactate Dehydrogenase 475 H C-Reactive Protein Total Protein Albumin Arterial Blood Glucose Coronavirus (PCR) 06/05/21 06/05/21 06/05/21 07:20 08:30 11:00 WBC MCHC RDW Lymph % (Auto) Lymph # (Auto) Baso # (Auto) Seg Neutrophils % Seg Neuts % (Manual) Lymphocytes % (Manual) Seg Neutrophils # Seg Neutrophils # Man Lymphocytes # (Manual) D-Dimer ABG pH POC ABG pO2 ABG pO2 ABG HCO3 ABG O2 Saturation ABG Base Excess ABG Oxyhemoglobin ABG Sodium ABG Chloride ABG Glucose Oxyhemoglobin Carboxyhemoglobin Sodium Potassium Chloride Carbon Dioxide BUN Creatinine Glucose POC Glucose 146 H 246 H Hemoglobin A1c Ferritin AST ALT Alkaline Phosphatase Lactate Dehydrogenase C-Reactive Protein Total Protein Albumin Arterial Blood Glucose Coronavirus (PCR) Positive A 06/05/21 06/05/21 06/06/21 16:50 22:30 07:57 WBC MCHC RDW Lymph % (Auto) Lymph # (Auto) Baso # (Auto) Seg Neutrophils % Seg Neuts % (Manual) Lymphocytes % (Manual) Seg Neutrophils # Seg Neutrophils # Man Lymphocytes # (Manual) D-Dimer ABG pH POC ABG pO2 ABG pO2 ABG HCO3 ABG O2 Saturation ABG Base Excess ABG Oxyhemoglobin ABG Sodium ABG Chloride ABG Glucose Oxyhemoglobin Carboxyhemoglobin Sodium Potassium Chloride Carbon Dioxide BUN Creatinine Glucose POC Glucose 240 H 174 H 120 H Hemoglobin A1c Ferritin AST ALT Alkaline Phosphatase Lactate Dehydrogenase C-Reactive Protein Total Protein Albumin Arterial Blood Glucose Coronavirus (PCR) 06/06/21 06/06/21 06/06/21 11:14 16:50 21:11 WBC MCHC RDW Lymph % (Auto) Lymph # (Auto) Baso # (Auto) Seg Neutrophils % Seg Neuts % (Manual) Lymphocytes % (Manual) Seg Neutrophils # Seg Neutrophils # Man Lymphocytes # (Manual) D-Dimer ABG pH POC ABG pO2 ABG pO2 ABG HCO3 ABG O2 Saturation ABG Base Excess ABG Oxyhemoglobin ABG Sodium ABG Chloride ABG Glucose Oxyhemoglobin Carboxyhemoglobin Sodium Potassium Chloride Carbon Dioxide BUN Creatinine Glucose POC Glucose 267 H 218 H 124 H Hemoglobin A1c Ferritin AST ALT Alkaline Phosphatase Lactate Dehydrogenase C-Reactive Protein Total Protein Albumin Arterial Blood Glucose Coronavirus (PCR) 06/07/21 06/07/21 06/08/21 11:58 15:59 07:59 WBC MCHC RDW Lymph % (Auto) Lymph # (Auto) Baso # (Auto) Seg Neutrophils % Seg Neuts % (Manual) Lymphocytes % (Manual) Seg Neutrophils # Seg Neutrophils # Man Lymphocytes # (Manual) D-Dimer ABG pH POC ABG pO2 ABG pO2 ABG HCO3 ABG O2 Saturation ABG Base Excess ABG Oxyhemoglobin ABG Sodium ABG Chloride ABG Glucose Oxyhemoglobin Carboxyhemoglobin Sodium Potassium Chloride Carbon Dioxide BUN Creatinine Glucose POC Glucose 219 H 208 H 192 H Hemoglobin A1c Ferritin AST ALT Alkaline Phosphatase Lactate Dehydrogenase C-Reactive Protein Total Protein Albumin Arterial Blood Glucose Coronavirus (PCR) 06/08/21 06/08/21 06/09/21 11:26 23:28 07:33 WBC MCHC RDW Lymph % (Auto) Lymph # (Auto) Baso # (Auto) Seg Neutrophils % Seg Neuts % (Manual) Lymphocytes % (Manual) Seg Neutrophils # Seg Neutrophils # Man Lymphocytes # (Manual) D-Dimer ABG pH POC ABG pO2 ABG pO2 ABG HCO3 ABG O2 Saturation ABG Base Excess ABG Oxyhemoglobin ABG Sodium ABG Chloride ABG Glucose Oxyhemoglobin Carboxyhemoglobin Sodium Potassium Chloride Carbon Dioxide BUN Creatinine Glucose POC Glucose 307 H 138 H 145 H Hemoglobin A1c Ferritin AST ALT Alkaline Phosphatase Lactate Dehydrogenase C-Reactive Protein Total Protein Albumin Arterial Blood Glucose Coronavirus (PCR) 06/09/21 06/09/21 06/09/21 11:01 15:47 21:43 WBC MCHC RDW Lymph % (Auto) Lymph # (Auto) Baso # (Auto) Seg Neutrophils % Seg Neuts % (Manual) Lymphocytes % (Manual) Seg Neutrophils # Seg Neutrophils # Man Lymphocytes # (Manual) D-Dimer ABG pH POC ABG pO2 ABG pO2 ABG HCO3 ABG O2 Saturation ABG Base Excess ABG Oxyhemoglobin ABG Sodium ABG Chloride ABG Glucose Oxyhemoglobin Carboxyhemoglobin Sodium Potassium Chloride Carbon Dioxide BUN Creatinine Glucose POC Glucose 266 H 305 H 223 H Hemoglobin A1c Ferritin AST ALT Alkaline Phosphatase Lactate Dehydrogenase C-Reactive Protein Total Protein Albumin Arterial Blood Glucose Coronavirus (PCR) 06/10/21 06/10/21 06/10/21 08:27 12:10 17:45 WBC MCHC RDW Lymph % (Auto) Lymph # (Auto) Baso # (Auto) Seg Neutrophils % Seg Neuts % (Manual) Lymphocytes % (Manual) Seg Neutrophils # Seg Neutrophils # Man Lymphocytes # (Manual) D-Dimer ABG pH POC ABG pO2 ABG pO2 ABG HCO3 ABG O2 Saturation ABG Base Excess ABG Oxyhemoglobin ABG Sodium ABG Chloride ABG Glucose Oxyhemoglobin Carboxyhemoglobin Sodium Potassium Chloride Carbon Dioxide BUN Creatinine Glucose POC Glucose 174 H 306 H 210 H Hemoglobin A1c Ferritin AST ALT Alkaline Phosphatase Lactate Dehydrogenase C-Reactive Protein Total Protein Albumin Arterial Blood Glucose Coronavirus (PCR) 06/10/21 21:45 WBC MCHC RDW Lymph % (Auto) Lymph # (Auto) Baso # (Auto) Seg Neutrophils % Seg Neuts % (Manual) Lymphocytes % (Manual) Seg Neutrophils # Seg Neutrophils # Man Lymphocytes # (Manual) D-Dimer ABG pH POC ABG pO2 ABG pO2 ABG HCO3 ABG O2 Saturation ABG Base Excess ABG Oxyhemoglobin ABG Sodium ABG Chloride ABG Glucose Oxyhemoglobin Carboxyhemoglobin Sodium Potassium Chloride Carbon Dioxide BUN Creatinine Glucose POC Glucose 262 H Hemoglobin A1c Ferritin AST ALT Alkaline Phosphatase Lactate Dehydrogenase C-Reactive Protein Total Protein Albumin Arterial Blood Glucose Coronavirus (PCR)
[2021-06-11] MEDS: DOCUSATE SODIUM 100 MG CAP PO SCH ×2 (11:06→23:36)
[2021-06-11] MEDS: MAGNESIUM HYDROXIDE (MOM) ORAL LIQD UDC PO PRN (11:06)
[2021-06-11] MEDS: FUROSEMIDE 40 MG/4 ML INJ IV SCH (11:07)
[2021-06-11] MEDS: CHOLECALCIFEROL (VIT D3) 1000 UNIT (25 mcg) TAB PO SCH (11:07)
[2021-06-11] MEDS: ASCORBIC ACID 500 MG TAB PO SCH (11:07)
[2021-06-11] MEDS: ZINC SULFATE 220 MG CAP PO SCH ×2 (11:07→23:37)
[2021-06-11 11:30] LABS: Hematocrit 39.8 % (30.3-42.9); Hemoglobin 13.4 gm/dl (10.1-14.3); Mean Corpuscular HGB Conc 34 % (30-34); Mean Corpuscular Volume 95 fl (79-97); Platelet Count 204 K/mm3 (140-440)
[2021-06-11 11:42] LABS: Blood Urea Nitrogen 29 mg/dL (7-17); Hemolysis Index 6
[2021-06-11 11:51] LABS: Red Cell Distribution Width 20.9 % (13.2-15.2)
[2021-06-11 11:54] LABS: BUN/Creatinine Ratio 145
--- NOTE | 2021-06-11 15:11 | Progress Note ---
Assessment and Plan 50-year-old female past medical history obesity, GERD, hyperlipidemia brought to the hospital due to shortness of breath, fevers, malaise, typical Covid symptoms for approximate 1 week prior to admission and was progressively worse since on set. She is found to have saturations of 86% on presentation. Afebrile since admission with a white count 7.5. Covid test was positive positive along with normal renal function and normal procalcitonin. Chest x-ray: Bilateral pneumonia. Patient initiated on Covid protocol, ID and pulmonary care following Assessment and plan: --Acute hypoxic resp failure due to covid19 -S/p BiPAP, now discontinued -Currently on high per nasal cannula at flow rate 40 L/min along with nonrebreather -See RT notes for titration -Albuterol as needed -Pulmonary hygiene -Pulmonology following CTA chest ordered, patient could not tolerate --covid19 pna; sepsis; -zinc/vitC/D -methylpred 125 mg every 8; wean as appropriate -Infectious disease consulted, -S/p Actemra and remdesivir -Trend temperature and WBC curve -Follow culture data --Oral candidiasis Nystatin solution ordered. -- hyponatremia -Trend BMP -Replace electrolytes as needed -Monitor intake and output -- coagulopathy of covid; on AC -Subcu heparin -Trend CBC -Transfuse for hemoglobin less than 7 -Bilateral lower extremity Doppler ultrasounds negative for DVT ; no CTA or VQ scan to rule out PE -- hyperglycemia; obesity -glargine HS -SSI AC/HS -Avoid hypoglycemia -- risk for protein gisella malnutrition given inc metabolic demand with resp insufficiency -TPN earlier in hospital admission due to BiPAP however now patient is tolerating p.o. -Patient on a GI soft diet with aspiration precautions -Nutrition following -Bowel regimen: Colace, senna, MiraLAX -PPI --Anxiety Likely due to severe hypoxia -Follows commands and RAY -PRN pain and anxiety meds -Patient is Bulgarian-speaking but understands Welsh --viral conjunctivitis right eye: -Right eye- s/p 5 d course of cipro drops. suspect viral conjunctivitis. lubricating eye drops. supportive management. --Septic shock -S/p pressors now discontinued -MAP goal 65 -Pressure monitor per protocol --DVT prophylaxis, per hospital protocol Hospital course to date: 04/17: Patient seen and examined, still uncomfortable with Hypoxic respiratory failure and on oxygen, will continue to steroids therapy, start patient on Remdesivir, ID consulted, Pulmonary consult placed. 04/18: Patient seen and examined, she is currently being changed to High flow NC due to worsening HYPOXIA, will transfer to IMCU, Pulmonary and ID following. Will also give a dose of Lasix today. Monitor Inflammatory markers. 04/19: Patient seen and examined still on high flow due to hypoxia. Appears a bit more comfortable today than yesterday. Cough has decreased in frequency. We will continue high dose Dexameathasone to complete 10 days. continue on Remdesivir 200 mg IV q day x 1 followed by 100 mg IV q day x 4 days -Obtain q48-72h inflammatory markers - ferritin, Ddimer, CRP, LDH Will also give lasix daily for the next 3 days and monitor renal function. Family updated. Continue prone positioning as tolerated 04/20: Patient has some desaturation episodes yesterday was placed on BiPAP. Discussed with ICU team for bed availability for patient to be transferred up. Continue prone position as tolerated. 04/21: Patient remains with profound hypoxia secondary to COVID pneumonia. -Continue steroids -Continue remedesir -S/P Actmera 04/22: Patient remains on steroids and remdesivir. ABG shows persistent hypoxia. We will continue current management additional trial of Lasix for the next few days to see if any improvement. Monitor inflammatory markers as needed. Prognosis is guarded remains on high flow 04/23; patient was treated with remdesivir and Actemra. Continue steroid. Patient's prognosis is guarded. 04/24; patient is on steroid. Patient is currently on BiPAP. Prognosis is guarded. Pulmonary is following. Patient was given Lasix and Ativan. 04/25; continue steroid. Patient was on 40 L of high flow oxygen with saturation was 88%. Pulmonary is following. Prognosis is guarded. Patient was given lasix and ativan. 04/26; patient is on BiPAP and Precedex. Prognosis is guarded. 04/27; patient is on BiPAP and Precedex. Patient will finish steroid today and will start on Solu-Medrol tomorrow. Prognosis is guarded. Blood pressure is better today. Hold Lasix. 04/28 patient is on 100 Fio2 via BIPAP. moderately dyspneic, pulmonary note reviewed, lab results reviewed 04/29 no acute events- see systems review above 04/30 no acute events overnight - on airvo today- TPN started -see systems review above - no acute events overnight- tolerating airvo- see systems review above 05-02 no acute events overnight; tolerating airvo this AM- see systems review above 05/03: Patient has shown remarkable improvement, weaned down to 3 L and satting 95%. Will attempt to walk test today in anticipation for discharge tomorrow. Discussed with PT team to walk the patient today also. 05/04: Patient appears to have had a decline he was down to 3 L satting 95% with anticipation for discharge today but desatted down to 85% on room air and only 88% on 5 L he is now back at 8 L. I encourage incentive spirometer. While he is on Xarelto and has completed the severe steroids which was subsequently changed to Solu-Medrol I will go ahead and order a CTA to make sure that there is not a failure of Xarelto. We will continue to wean as tolerated discussed with nursing staff at bedside. 05/05/21 Patient is on 40 L of oxygen with 80% FiO2. Patient is encouraged to turn to the side more frequently. Patient is denied any shortness of breath and coughing. No other complaints. Follow the CT scan of the chest. Status post remdesivir and Actemra.Solu-Medrol 40 mg IV every 8 hours. Continue current management. Pulmonary follow-up. 05/06: Patient remains on high flow nasal cannula but states that she feels slightly better with the help of translation from her cousin Aspen. Patient is still awaiting a bed on the floor. Patient diet is being tolerated now so we will stop TPN will be stopped tonight. 05/07/2021: Patient remains on 40 L/min oxygen at 90% FiO2. Attempt made for CTA chest to rule out pulmonary embolism however patient desatted while at CT. Study was aborted, will reattempt again tomorrow. will follow along with renetta bertrand. Discussed/updated patient and patient's daughter over phone regarding any active clinical issues. Patient only complaint is oral pain from oral candidia sis noted on exam. Nystatin oral solution ordered. Daughter also voiced concern over patient eye drops which she stated that patient needed to restart from home. However she did not remember name of drops. advised daughter to call our hospital with drop name and dosing and we will restart. 05/08/2021: Started anticoagulation with Lovenox yesterday. Awaiting CTA chest completion. Will attempt to de-escalate oxygen as patient tolerates 05/09/2021: Continues to have high O2 requirements. CTA chest aborted due to patient not being able to tolerate transport to and from scanner. Will follow pulmonology recommendations 05/10/2021: Steroids increased yesterday to 125 mg every 8 hour. Continuing full dose anticoagulation. Respiratory status still remains challenging as it is difficult to wean patient off of hifnc. Minimal improvement compared to last few days. Plan to prone patient today. Otherwise: Some improvement in eye symptoms compared to yesterday. Will order more lubricating eye drops 05/11/2021: Still requires high flow nasal cannula, FiO2 de-escalated to 85%.. Encourage continued proning, patient care team aware. Continue with steroids, anticoagulation, antibiotics. 05/12/2021: High flow nasal cannula remains at flow rate 35 L/min and FiO2 of 85%. Patient appears more comfortable today. Started insulin regimen due to hyperglycemia likely multifactorial in the setting of underlying diabetes and high-dose steroids. Continue to encourage patient to prone. Discussed with pulmonology regarding patient underlying anxiety. We both agreed that low-dose BuSpar might be beneficial for the patient. 05/13/2020: hypoxic resp distress overnight. cpap ordered. Current settings on encounter 30/04 at 100% FIO2. Advised care (RN, RT, PT) team to continue to aggressively work with patient as far as proning. Patient can sit at side of bed and rest on bedside tray w/ pillow in "Rodin's thinker pose". continue high dose steroids, PRN ativan for anxiety, Buspar noted in pulm recs. 05/14/21: Patient remains on 100% O2 with high flow. Follow inflammatory markers, wean FiO2 as tolerated, guarded prognosis 05/15: Patient on 40 L high flow O2 today-requiring nonrebreather intermittently, continue to follow inflammatory markers and wean off O2 as tolerated, guarded prognosis. 05/16:-Remains on high flow O2 along with nonrebreather, continue to follow inflammatory markers and wean off O2 as tolerated, pulmonary and ID following. Guarded prognosis, patient requiring higher concentration of O2 and unable to wean off. 05/17: Persistently recurring higher concentration O2. Patient on both high flow oxygen and nonrebreather. Poor prognosis, continue to follow inflammatory markers. ID and pulmonary care following. Updated family. 05/18: Patient remains on nonrebreather and high flow O2, Prone if possible. Wean FiO2 for sats >88%. Prognosis is very very guarded. Follow inflammatory markers. 05/19: Wean FiO2 for sats >88%. Patient remains on nonrebreather and high flow O2, Prone if possible. Follow inflammatory markers. Prognosis is very very guarded. 05/20: Patient remains on high flow O2 along with nonrebreather. Guarded prognosis. Wean off O2 as tolerated. Pulmonary and ID following 05/21: Clinically very poor prognosis. Patient continuously requiring high flow O2 along with nonrebreather. Updated daughter with all clinical details. Foll ow BMP, follow inflammatory markers. Wean off O2 as tolerated. 05/22: Remains on nonrebreather and high flow O2. Continue to monitor clinically, guarded prognosis. Continue to follow inflammatory markers. ID and pulmonary also following. 06/11/21: Remains on high flow O2, poor prognosis 06/12/2021 On high flow nasal cannula oxygen Steroids will be tapered Prone position Subjective Date of service: 06/11/21 Principal diagnosis: Covid-19 Interval history: Patient seen and examined. Medical records and medication list reviewed. No acute event overnight noted by the RN. Patient remains on high flow O2. Patient is tolerating diet. Discussed plan of care at bedside with patient. Objective - Exam Narrative Exam: Limited physical exam due to COVID-19 pandemic to minimize transmission of the disease and to preserve PPE. Vital reviewed and stable. GENERAL: well-developed well-nourished lying on bed appeared to be in no discomfort. HEENT: Normocephalic. Atraumatic. Right eye congestion NECK: Supple. CHEST/LUNGS: breathing on high flow O2 with nonrebreather HEART/CARDIOVASCULAR: Heart rate stable on telemetry ABDOMEN: Visibly not distended SKIN: There is no rash NEURO: No focal motor deficit. Follows command. MUSCULOSKELETAL: No joint effusion EXTRIMITY: No swelling, no cyanosis or clubbing. PSYCH: Cooperative. - Constitutional Vitals: Vital Signs - 12hr 06/11/21 05:57 Temperature 97.7 F Pulse Rate 75 Respiratory 22 Rate Blood Pressure 105/62 O2 Sat by Pulse 93 Oximetry - Labs CBC & Chem 7: 06/15/21 08:00 06/15/21 08:00 Labs: Abnormal lab results 06/10/21 06/10/21 06/11/21 Range/Units 17:45 21:45 09:38 RDW 20.9 H (13.2-15.2) % Sodium (137-145) mmol/L Chloride (98-107) mmol/L Carbon Dioxide (22-30) mmol/L BUN (7-17) mg/dL Creatinine (0.6-1.2) mg/dL Glucose (65-100) mg/dL POC Glucose 210 H 262 H (70-105) mg/dL 06/11/21 06/11/21 Range/Units 09:38 11:20 RDW (13.2-15.2) % Sodium 135 L (137-145) mmol/L Chloride 90.8 L (98-107) mmol/L Carbon Dioxide 36 H (22-30) mmol/L BUN 29 H (7-17) mg/dL Creatinine 0.2 L (0.6-1.2) mg/dL Glucose 258 H (65-100) mg/dL POC Glucose 269 H (70-105) mg/dL
[2021-06-11] MEDS: SENNOSIDES 8.6 MG TAB PO SCH (23:36)
[2021-06-11] MEDS: ENOXAPARIN 40 MG/0.4 ML INJ SUB-Q SCH (23:37)
[2021-06-11] MEDS: ACETAMINOPHEN 325 MG TAB PO PRN (23:51)
[2021-06-11] MEDS: LORazepam 2 MG/ML VIAL IV PRN (23:55)
[2021-06-12] MEDS: methylPREDNISolone Sod Succinate 125 MG/2 ML INJ IV SCH ×4 (05:57→22:00)
[2021-06-12] MEDS: INSULIN LISPRO 100 UNIT/ML SUB-Q SCH ×4 (08:33→22:00)
[2021-06-12] MEDS: INSULIN GLARGINE 100 UNITS/ML SUB-Q SCH ×2 (12:46→23:27)
[2021-06-12] MEDS: ASCORBIC ACID 500 MG TAB PO SCH (12:47)
[2021-06-12] MEDS: CHOLECALCIFEROL (VIT D3) 1000 UNIT (25 mcg) TAB PO SCH (12:47)
[2021-06-12] MEDS: FUROSEMIDE 40 MG/4 ML INJ IV SCH (12:47)
[2021-06-12] MEDS: DOCUSATE SODIUM 100 MG CAP PO SCH ×2 (12:47→23:21)
[2021-06-12] MEDS: ZINC SULFATE 220 MG CAP PO SCH ×2 (12:47→23:22)
--- NOTE | 2021-06-12 16:05 | Progress Note ---
Assessment and Plan 50-year-old female past medical history obesity, GERD, hyperlipidemia brought to the hospital due to shortness of breath, fevers, malaise, typical Covid symptoms for approximate 1 week prior to admission and was progressively worse since on set. She is found to have saturations of 86% on presentation. Afebrile since admission with a white count 7.5. Covid test was positive positive along with normal renal function and normal procalcitonin. Chest x-ray: Bilateral pneumonia. Patient initiated on Covid protocol, ID and pulmonary care following Assessment and plan: --Acute hypoxic resp failure due to covid19 -S/p BiPAP, now discontinued -Currently on high per nasal cannula -See RT notes for titration -Albuterol as needed -Pulmonary hygiene -Pulmonology following CTA chest ordered, patient could not tolerate --covid19 pna; sepsis; -zinc/vitC/D - continue empiric steroid; wean as appropriate -Infectious disease consulted, -S/p Actemra and remdesivir -Trend temperature and WBC curve -Follow culture data --Oral candidiasis Nystatin solution ordered. -- hyponatremia -Trend BMP -Replace electrolytes as needed -Monitor intake and output -- coagulopathy of covid; on AC -Subcu heparin -Trend CBC -Transfuse for hemoglobin less than 7 -Bilateral lower extremity Doppler ultrasounds negative for DVT ; no CTA or VQ scan to rule out PE -- hyperglycemia; obesity -glargine HS -SSI AC/HS -Avoid hypoglycemia -- risk for protein gisella malnutrition given inc metabolic demand with resp insufficiency -TPN earlier in hospital admission due to BiPAP however now patient is tolerating p.o. -Patient on a GI soft diet with aspiration precautions -Nutrition following -Bowel regimen: Colace, senna, MiraLAX -PPI --Anxiety Likely due to severe hypoxia -Follows commands and RAY -PRN pain and anxiety meds -Patient is Hebrew-speaking but understands Serbian --viral conjunctivitis right eye: -Right eye- s/p 5 d course of cipro drops. suspect viral conjunctivitis. lubricating eye drops. supportive management. --Septic shock -S/p pressors now discontinued -MAP goal 65 -Pressure monitor per protocol --DVT prophylaxis, per hospital protocol Hospital course to date: 04/17: Patient seen and examined, still uncomfortable with Hypoxic respiratory failure and on oxygen, will continue to steroids therapy, start patient on Remdesivir, ID consulted, Pulmonary consult placed. 04/18: Patient seen and examined, she is currently being changed to High flow NC due to worsening HYPOXIA, will transfer to IMCU, Pulmonary and ID following. Will also give a dose of Lasix today. Monitor Inflammatory markers. 04/19: Patient seen and examined still on high flow due to hypoxia. Appears a bit more comfortable today than yesterday. Cough has decreased in frequency. We will continue high dose Dexameathasone to complete 10 days. continue on Remdesivir 200 mg IV q day x 1 followed by 100 mg IV q day x 4 days -Obtain q48-72h inflammatory markers - ferritin, Ddimer, CRP, LDH Will also give lasix daily for the next 3 days and monitor renal function. Family updated. Continue prone positioning as tolerated 04/20: Patient has some desaturation episodes yesterday was placed on BiPAP. Discussed with ICU team for bed availability for patient to be transferred up. Continue prone position as tolerated. 04/21: Patient remains with profound hypoxia secondary to COVID pneumonia. -Continue steroids -Continue remedesir -S/P Actmera 04/22: Patient remains on steroids and remdesivir. ABG shows persistent hypoxia. We will continue current management additional trial of Lasix for the next few days to see if any improvement. Monitor inflammatory markers as needed. Prognosis is guarded remains on high flow 04/23; patient was treated with remdesivir and Actemra. Continue steroid. Patient's prognosis is guarded. 04/24; patient is on steroid. Patient is currently on BiPAP. Prognosis is guarded. Pulmonary is following. Patient was given Lasix and Ativan. 04/25; continue steroid. Patient was on 40 L of high flow oxygen with saturation was 88%. Pulmonary is following. Prognosis is guarded. Patient was given lasix and ativan. 04/26; patient is on BiPAP and Precedex. Prognosis is guarded. 04/27; patient is on BiPAP and Precedex. Patient will finish steroid today and will start on Solu-Medrol tomorrow. Prognosis is guarded. Blood pressure is better today. Hold Lasix. 04/28 patient is on 100 Fio2 via BIPAP. moderately dyspneic, pulmonary note reviewed, lab results reviewed 04/29 no acute events- see systems review above 04/30 no acute events overnight - on airvo today- TPN started -see systems review above 05-01 no acute events overnight- tolerating airvo- see systems review above 05-02 no acute events overnight; tolerating airvo this AM- see systems review above 05/03: Patient has shown remarkable improvement, weaned down to 3 L and satting 95%. Will attempt to walk test today in anticipation for discharge tomorrow. Discussed with PT team to walk the patient today also. 05/04: Patient appears to have had a decline he was down to 3 L satting 95% with anticipation for discharge today but desatted down to 85% on room air and only 88% on 5 L he is now back at 8 L. I encourage incentive spirometer. While he is on Xarelto and has completed the severe steroids which was subsequently changed to Solu-Medrol I will go ahead and order a CTA to make sure that there is not a failure of Xarelto. We will continue to wean as tolerated discussed w [facility] nursing staff at bedside. 05/05/21 Patient is on 40 L of oxygen with 80% FiO2. Patient is encouraged to turn to the side more frequently. Patient is denied any shortness of breath and coughing. No other complaints. Follow the CT scan of the chest. Status post remdesivir and Actemra.Solu-Medrol 40 mg IV every 8 hours. Continue current management. Pulmonary follow-up. 05/06: Patient remains on high flow nasal cannula but states that she feels slightly better with the help of translation from her cousin Aspen. Patient is still awaiting a bed on the floor. Patient diet is being tolerated now so we will stop TPN will be stopped tonight. 05/07/2021: Patient remains on 40 L/min oxygen at 90% FiO2. Attempt made for CTA chest to rule out pulmonary embolism however patient desatted while at CT. Study was aborted, will reattempt again tomorrow. will follow along with renetta bertrand. Discussed/updated patient and patient's daughter over phone regarding any active clinical issues. Patient only complaint is oral pain from oral candidiasis noted on exam. Nystatin oral solution ordered. Daughter also voiced concern over patient eye drops which she stated that patient needed to restart from home. However she did not remember name of drops. advised daughter to call our hospital with drop name and dosing and we will restart. 05/08/2021: Started anticoagulation with Lovenox yesterday. Awaiting CTA chest completion. Will attempt to de-escalate oxygen as patient tolerates 05/09/2021: Continues to have high O2 requirements. CTA chest aborted due to patient not being able to tolerate transport to and from scanner. Will follow pulmonology recommendations 05/10/2021: Steroids increased yesterday to 125 mg every 8 hour. Continuing full dose anticoagulation. Respiratory status still remains challenging as it is difficult to wean patient off of hifnc. Minimal improvement compared to last few days. Plan to prone patient today. Otherwise: Some improvement in eye symptoms compared to yesterday. Will order more lubricating eye drops 05/11/2021: Still requires high flow nasal cannula, FiO2 de-escalated to 85%.. Encourage continued proning, patient care team aware. Continue with steroids, anticoagulation, antibiotics. 05/12/2021: High flow nasal cannula remains at flow rate 35 L/min and FiO2 of 85%. Patient appears more comfortable today. Started insulin regimen due to hyperglycemia likely multifactorial in the setting of underlying diabetes and high-dose steroids. Continue to encourage patient to prone. Discussed with pulmonology regarding patient underlying anxiety. We both agreed that low-dose BuSpar might be beneficial for the patient. 05/13/2020: hypoxic resp distress overnight. cpap ordered. Current settings on encounter 30/04 at 100% FIO2. Advised care (RN, RT, PT) team to continue to aggressively work with patient as far as proning. Patient can sit at side of bed and rest on bedside tray w/ pillow in "Rodin's thinker pose". continue high dose steroids, PRN ativan for anxiety, Buspar noted in pulm recs. 05/14/21: Patient remains on 100% O2 with high flow. Follow inflammatory markers, wean FiO2 as tolerated, guarded prognosis 05/15: Patient on 40 L high flow O2 today-requiring nonrebreather intermittently, continue to follow inflammatory markers and wean off O2 as tolerated, guarded prognosis. 05/16:-Remains on high flow O2 along with nonrebreather, continue to follow inflammatory markers and wean off O2 as tolerated, pulmonary and ID following. Guarded prognosis, patient requiring higher concentration of O2 and unable to wean off. 05/17: Persistently recurring higher concentration O2. Patient on both high flow oxygen and nonrebreather. Poor prognosis, continue to follow inflammatory markers. ID and pulmonary care following. Updated family. 05/18: Patient remains on nonrebreather and high flow O2, Prone if possible. Wean FiO2 for sats >88%. Prognosis is very very guarded. Follow inflammatory markers. 05/19: Wean FiO2 for sats >88%. Patient remains on nonrebreather and high flow O2, Prone if possible. Follow inflammatory markers. Prognosis is very very guarded. 05/20: Patient remains on high flow O2 along with nonrebreather. Guarded prognosis. Wean off O2 as tolerated. Pulmonary and ID following 05/21: Clinically very poor prognosis. Patient continuously requiring high flow O2 along with nonrebreather. Updated daughter with all clinical details. Follow BMP, follow inflammatory markers. Wean off O2 as tolerated. 05/22: Remains on nonrebreather and high flow O2. Continue to monitor clinically, guarded prognosis. Continue to follow inflammatory markers. ID and pulmonary also following. 06/11/21: Remains on high flow O2, poor prognosis 06/12/21: Remains on high flow O2, wean off O2 as tolerated, pulmonary following Subjective Date of service: 06/12/21 Principal diagnosis: Covid-19 Interval history: Patient seen and examined. Medical records and medication list reviewed. No acute event overnight noted by the RN. Patient remains on high flow O2. Patient is tolerating diet. Discussed plan of care at bedside with patient. Objective - Exam Narrative Exam: Limited physical exam due to COVID-19 pandemic to minimize transmission of the disease and to preserve PPE. Vital reviewed and stable. GENERAL: well-developed well-nourished lying on bed appeared to be in no discomfort. HEENT: Normocephalic. Atraumatic. Right eye congestion NECK: Supple. CHEST/LUNGS: breathing on high flow O2 HEART/CARDIOVASCULAR: Heart rate stable on telemetry ABDOMEN: Visibly not distended SKIN: There is no rash NEURO: No focal motor deficit. Follows command. MUSCULOSKELETAL: No joint effusion EXTRIMITY: No swelling, no cyanosis or clubbing. PSYCH: Cooperative. - Constitutional Vitals: Vital Signs - 12hr 06/12/21 06/12/21 06/12/21 05:28 05:58 09:40 Temperature 98.0 F Pulse Rate 79 Respiratory 18 22 Rate Blood Pressure 106/61 O2 Sat by Pulse 96 96 92 Oximetry 06/12/21 11:26 Temperature 97.9 F Pulse Rate 97 H Respiratory 20 Rate Blood Pressure 111/64 O2 Sat by Pulse 93 Oximetry - Labs CBC & Chem 7: 06/15/21 08:00 06/15/21 08:00 Labs: Abnormal lab results 06/11/21 06/12/21 06/12/21 Range/Units 22:57 08:07 11:24 POC Glucose 211 H 149 H 270 H (70-105) mg/dL
[2021-06-12] MEDS: ENOXAPARIN 40 MG/0.4 ML INJ SUB-Q SCH (23:20)
[2021-06-12] MEDS: ACETAMINOPHEN 325 MG TAB PO PRN (23:20)
[2021-06-12] MEDS: SENNOSIDES 8.6 MG TAB PO SCH (23:21)
[2021-06-13] MEDS: methylPREDNISolone Sod Succinate 125 MG/2 ML INJ IV SCH ×2 (05:49→13:00)
[2021-06-13] MEDS: INSULIN LISPRO 100 UNIT/ML SUB-Q SCH ×4 (07:30→22:09)
[2021-06-13] MEDS: INSULIN GLARGINE 100 UNITS/ML SUB-Q SCH ×2 (09:43→22:12)
[2021-06-13] MEDS: CHOLECALCIFEROL (VIT D3) 1000 UNIT (25 mcg) TAB PO SCH (09:44)
[2021-06-13] MEDS: ZINC SULFATE 220 MG CAP PO SCH ×2 (09:44→22:12)
[2021-06-13] MEDS: DOCUSATE SODIUM 100 MG CAP PO SCH ×2 (09:44→22:12)
[2021-06-13] MEDS: ASCORBIC ACID 500 MG TAB PO SCH (09:44)
[2021-06-13] MEDS: FUROSEMIDE 40 MG/4 ML INJ IV SCH (09:44)
--- NOTE | 2021-06-13 15:28 | Progress Note ---
Assessment and Plan 50-year-old female past medical history obesity, GERD, hyperlipidemia brought to the hospital due to shortness of breath, fevers, malaise, typical Covid symptoms for approximate 1 week prior to admission and was progressively worse since on set. She is found to have saturations of 86% on presentation. Afebrile since admission with a white count 7.5. Covid test was positive positive along with normal renal function and normal procalcitonin. Chest x-ray: Bilateral pneumonia. Patient initiated on Covid protocol, ID and pulmonary care following Assessment and plan: --Acute hypoxic resp failure due to covid19 -S/p BiPAP, now discontinued -Currently on high per nasal cannula -See RT notes for titration -Albuterol as needed -Pulmonary hygiene -Pulmonology following CTA chest ordered, patient could not tolerate --covid19 pna; sepsis; -zinc/vitC/D - on empiric steroid; wean as appropriate -Infectious disease consulted, -S/p Actemra and remdesivir -Trend temperature and WBC curve -Follow culture data --Oral candidiasis Nystatin solution ordered. -- hyponatremia -Trend BMP -Replace electrolytes as needed -Monitor intake and output -- coagulopathy of covid; on AC -Subcu heparin -Trend CBC -Transfuse for hemoglobin less than 7 -Bilateral lower extremity Doppler ultrasounds negative for DVT ; no CTA or VQ scan to rule out PE -- hyperglycemia; obesity -glargine HS -SSI AC/HS -Avoid hypoglycemia -- risk for protein gisella malnutrition given inc metabolic demand with resp insufficiency -TPN earlier in hospital admission due to BiPAP however now patient is tolerating p.o. -Patient on a GI soft diet with aspiration precautions -Nutrition following -Bowel regimen: Colace, senna, MiraLAX -PPI --Anxiety Likely due to severe hypoxia -Follows commands and RAY -PRN pain and anxiety meds -Patient is [place]-speaking but understands Latvian --viral conjunctivitis right eye: -Right eye- s/p 5 d course of cipro drops. suspect viral conjunctivitis. lubricating eye drops. supportive management. --Septic shock -S/p pressors now discontinued -MAP goal 65 -Pressure monitor per protocol --DVT prophylaxis, per hospital protocol Hospital course to date: 04/17: Patient seen and examined, still uncomfortable with Hypoxic respiratory failure and on oxygen, will continue to steroids therapy, start patient on Remdesivir, ID consulted, Pulmonary consult placed. 04/18: Patient seen and examined, she is currently being changed to High flow NC due to worsening HYPOXIA, will transfer to IMCU, Pulmonary and ID following. Will also give a dose of Lasix today. Monitor Inflammatory markers. 04/19: Patient seen and examined still on high flow due to hypoxia. Appears a bit more comfortable today than yesterday. Cough has decreased in frequency. We will continue high dose Dexameathasone to complete 10 days. continue on Remdesivir 200 mg IV q day x 1 followed by 100 mg IV q day x 4 days -Obtain q48-72h inflammatory markers - ferritin, Ddimer, CRP, LDH Will also give lasix daily for the next 3 days and monitor renal function. Family updated. Continue prone positioning as tolerated 04/20: Patient has some desaturation episodes yesterday was placed on BiPAP. Discussed with ICU team for bed availability for patient to be transferred up. Continue prone position as tolerated. 04/21: Patient remains with profound hypoxia secondary to COVID pneumonia. -Continue steroids -Continue remedesir -S/P Actmera 04/22: Patient remains on steroids and remdesivir. ABG shows persistent hypoxia. We will continue current management additional trial of Lasix for the next few days to see if any improvement. Monitor inflammatory markers as needed. Prognosis is guarded remains on high flow 04/23; patient was treated with remdesivir and Actemra. Continue steroid. Sophia ent's prognosis is guarded. 04/24; patient is on steroid. Patient is currently on BiPAP. Prognosis is guarded. Pulmonary is following. Patient was given Lasix and Ativan. 04/25; continue steroid. Patient was on 40 L of high flow oxygen with saturation was 88%. Pulmonary is following. Prognosis is guarded. Patient was given lasix and ativan. 04/26; patient is on BiPAP and Precedex. Prognosis is guarded. 04/27; patient is on BiPAP and Precedex. Patient will finish steroid today and will start on Solu-Medrol tomorrow. Prognosis is guarded. Blood pressure is better today. Hold Lasix. 04/28 patient is on 100 Fio2 via BIPAP. moderately dyspneic, pulmonary note reviewed, lab results reviewed 8/16 no acute events- see systems review above 04/30 no acute events overnight - on airvo today- TPN started -see systems review above -18 no acute events overnight- tolerating airvo- see systems review above - no acute events overnight; tolerating airvo this AM- see systems review above 05/03: Patient has shown remarkable improvement, weaned down to 3 L and satting 95%. Will attempt to walk test today in anticipation for discharge tomorrow. Discussed with PT team to walk the patient today also. 05/04: Patient appears to have had a decline he was down to 3 L satting 95% with anticipation for discharge today but desatted down to 85% on room air and only 88% on 5 L he is now back at 8 L. I encourage incentive spirometer. While he is on Xarelto and has completed the severe steroids which was subsequently changed to Solu-Medrol I will go ahead and order a CTA to make sure that there is not a failure of Xarelto. We will continue to wean as tolerated discussed with nursing staff at bedside. 05/05/21 Patient is on 40 L of oxygen with 80% FiO2. Patient is encouraged to turn to the side more frequently. Patient is denied any shortness of breath and coughing. No other complaints. Follow the CT scan of the chest. Status post remdesivir and Actemra.Solu-Medrol 40 mg IV every 8 hours. Continue current management. Pulmonary follow-up. 05/06: Patient remains on high flow nasal cannula but states that she feels slightly better with the help of translation from her cousin Aspen. Patient is still awaiting a bed on the floor. Patient diet is being tolerated now so we will stop TPN will be stopped tonight. 05/07/2021: Patient remains on 40 L/min oxygen at 90% FiO2. Attempt made for CTA chest to rule out pulmonary embolism however patient desatted while at CT. Study was aborted, will reattempt again tomorrow. will follow along with renetta bertrand. Discussed/updated patient and patient's daughter over phone regarding any active clinical issues. Patient only complaint is oral pain from oral candidiasis noted on exam. Nystatin oral solution ordered. Daughter also voiced concern over patient eye drops which she stated that patient needed to restart f rom home. However she did not remember name of drops. advised daughter to call our hospital with drop name and dosing and we will restart. 05/08/2021: Started anticoagulation with Lovenox yesterday. Awaiting CTA chest completion. Will attempt to de-escalate oxygen as patient tolerates 05/09/2021: Continues to have high O2 requirements. CTA chest aborted due to patient not being able to tolerate transport to and from scanner. Will follow pulmonology recommendations 05/10/2021: Steroids increased yesterday to 125 mg every 8 hour. Continuing full dose anticoagulation. Respiratory status still remains challenging as it is difficult to wean patient off of hifnc. Minimal improvement compared to last few days. Plan to prone patient today. Otherwise: Some improvement in eye symptoms compared to yesterday. Will order more lubricating eye drops 05/11/2021: Still requires high flow nasal cannula, FiO2 de-escalated to 85%.. Encourage continued proning, patient care team aware. Continue with steroids, anticoagulation, antibiotics. 05/12/2021: High flow nasal cannula remains at flow rate 35 L/min and FiO2 of 85%. Patient appears more comfortable today. Started insulin regimen due to h yperglycemia likely multifactorial in the setting of underlying diabetes and high-dose steroids. Continue to encourage patient to prone. Discussed with pulmonology regarding patient underlying anxiety. We both agreed that low-dose BuSpar might be beneficial for the patient. 05/13/2020: hypoxic resp distress overnight. cpap ordered. Current settings on encounter 30/04 at 100% FIO2. Advised care (RN, RT, PT) team to continue to aggressively work with patient as far as proning. Patient can sit at side of bed and rest on bedside tray w/ pillow in "Rodin's thinker pose". continue high dose steroids, PRN ativan for anxiety, Buspar noted in pulm recs. 05/14/21: Patient remains on 100% O2 with high flow. Follow inflammatory markers, wean FiO2 as tolerated, guarded prognosis 05/15: Patient on 40 L high flow O2 today-requiring nonrebreather intermittently, continue to follow inflammatory markers and wean off O2 as tolerated, guarded prognosis. 05/16:-Remains on high flow O2 along with nonrebreather, continue to follow inflammatory markers and wean off O2 as tolerated, pulmonary and ID following. Guarded prognosis, patient requiring higher concentration of O2 and unable to wean off. 05/17: Persistently recurring higher concentration O2. Patient on both high flow oxygen and nonrebreather. Poor prognosis, continue to follow inflammatory markers. ID and pulmonary care following. Updated family. 05/18: Patient remains on nonrebreather and high flow O2, Prone if possible. Wean FiO2 for sats >88%. Prognosis is very very guarded. Follow inflammatory markers. 05/19: Wean FiO2 for sats >88%. Patient remains on nonrebreather and high flow O2, Prone if possible. Follow inflammatory markers. Prognosis is very very guarded. 05/20: Patient remains on high flow O2 along with nonrebreather. Guarded prognosis. Wean off O2 as tolerated. Pulmonary and ID following 05/21: Clinically very poor prognosis. Patient continuously requiring high flow O2 along with nonrebreather. Updated daughter with all clinical details. Follow BMP, follow inflammatory markers. Wean off O2 as tolerated. 05/22: Remains on nonrebreather and high flow O2. Continue to monitor clinically, guarded prognosis. Continue to follow inflammatory markers. ID and pulmonary also following. 06/11/21: Remains on high flow O2, poor prognosis 06/12/21: Remains on high flow O2, wean off O2 as tolerated, pulmonary following 06/13/21: Unable to wean off from high flow O2, follow ID following, guarded pr ognosis Subjective Date of service: 06/13/21 Principal diagnosis: Covid-19 Interval history: Patient seen and examined. Medical records and medication list reviewed. No acute event overnight noted by the RN. Patient remains on high flow O2. Patient is tolerating diet. Discussed plan of care at bedside with patient. Objective - Exam Narrative Exam: Limited physical exam due to COVID-19 pandemic to minimize transmission of the disease and to preserve PPE. Vital reviewed and stable. GENERAL: well-developed well-nourished lying on bed appeared to be in no discomfort. HEENT: Normocephalic. Atraumatic. Right eye congestion NECK: Supple. CHEST/LUNGS: breathing on high flow O2 HEART/CARDIOVASCULAR: Heart rate stable on telemetry ABDOMEN: Visibly not distended SKIN: There is no rash NEURO: No focal motor deficit. Follows command. MUSCULOSKELETAL: No joint effusion EXTRIMITY: No swelling, no cyanosis or clubbing. PSYCH: Cooperative. - Constitutional Vitals: Vital Signs - 12hr 06/13/21 06/13/21 06/13/21 03:37 05:05 05:07 Temperature 97.8 F Pulse Rate 75 Respiratory 18 Rate Blood Pressure 92/55 Blood Pressure [Left] O2 Sat by Pulse 97 98 95 Oximetry 06/13/21 06/13/21 06/13/21 08:24 10:00 13:00 Temperature 97.8 F Pulse Rate 109 H Respiratory 20 Rate Blood Pressure Blood Pressure 123/63 [Left] O2 Sat by Pulse 95 96 90 Oximetry 06/13/21 14:12 Temperature Pulse Rate Respiratory Rate Blood Pressure Blood Pressure [Left] O2 Sat by Pulse 90 Oximetry - Labs CBC & Chem 7: 06/15/21 08:00 06/15/21 08:00 Labs: Abnormal lab results 06/12/21 06/12/21 06/13/21 Range/Units 18:08 20:22 07:50 POC Glucose 166 H 155 H 163 H (70-105) mg/dL 06/13/21 Range/Units 11:18 POC Glucose 293 H (70-105) mg/dL
[2021-06-13] MEDS: ACETAMINOPHEN 325 MG TAB PO PRN (22:12)
[2021-06-13] MEDS: SENNOSIDES 8.6 MG TAB PO SCH (22:12)
[2021-06-13] MEDS: ENOXAPARIN 40 MG/0.4 ML INJ SUB-Q SCH (22:13)
[2021-06-14] MEDS: INSULIN LISPRO 100 UNIT/ML SUB-Q SCH ×4 (07:30→22:56)
[2021-06-14] MEDS: FUROSEMIDE 40 MG/4 ML INJ IV SCH (09:50)
[2021-06-14] MEDS: predniSONE 20 MG TAB PO SCH (09:50)
[2021-06-14] MEDS: DOCUSATE SODIUM 100 MG CAP PO SCH ×2 (09:50→22:56)
[2021-06-14] MEDS: ZINC SULFATE 220 MG CAP PO SCH ×2 (09:50→22:55)
[2021-06-14] MEDS: CHOLECALCIFEROL (VIT D3) 1000 UNIT (25 mcg) TAB PO SCH (09:50)
[2021-06-14] MEDS: ASCORBIC ACID 500 MG TAB PO SCH (09:50)
[2021-06-14] MEDS: INSULIN GLARGINE 100 UNITS/ML SUB-Q SCH ×2 (09:51→22:58)
--- NOTE | 2021-06-14 10:31 | Progress Note ---
Assessment and Plan 50 y/o female with acute respiratory failure secondary to COVID19 pneumonia. 06/14/21: Continue oral steroid therapy. Will do further weaning next week. Wean for sats >88% and prone as tolerated. Will see as needed over the weekend. 06/13/21: Will change to prednisone 60 daily starting tomorrow. Prone if able and wean for sats >88% 06/11/21: no new recs, will change to oral steroids tomorrow, continue to prone if able and wean for sats >88% 06/10/21: Will change to oral steroids on Thursday to begin prolonged taper 06/06/21: Continue to wean as tolerated, will drop steroids on tomorrow. 06/04/21: Clinically no change. Will drop steroids down the end of this week. 05/31/21: Clinically no change. Not eligible for LTACH. Encourage Proning. Will drop steroids down to 40 q8 05/29/21: No acute changes clinically. Still on HFNC but not really able to wean. Continue to encourage proning. Will drop steroids further on Thursday. 05/27/21: No improvement over the weekend but also no worsening. No other strategies to offer. Please continue to encourage patient to prone. I dropped steroids on yesterday. Will wean more later in the week. 05/24/21: No new recs again for today. Will see as needed over the weekend but follow chart peripherally for changes. 05/22/21: No new recs for today. Prognosis remains guarded. 05/21/21: Wean as tolerated. Prone if able. Guarded prognosis 05/20/21: COntinue current level of care. 05/17/21: Prone if possible. Wean FiO2 for sats >88%. Continue scheduled ativan. Prognosis is very very guarded. Unfunded so not a candidate for LTACH 05/16/21: Prone if willing. Wean FIO2 if patient will allow. Anxiety control. Prognosis still remains very guarded. 05/15/21: Not sure if MAR is accurate but may have only gotten one dose of scheduled anixolytic therapy. Continue proning as tolerated, and wean FiO2 and flow for sats >88%. Prognosi remains very very guarded to poor. 05/14/21: Will discontinue the buspar and make the ativan scheduled but will do q6 as oppose to q4 and attempt to leave parameters for nursing when not to give. If anxiety could be controlled, feel that patient could be weaned further. She has no funding so she is not a candidate for LTACH. Prone if possible. Guarded prognosis. This is her day. 05/13/21: Ordered buspar 10 BID to start with to help with anxiety. Please continue to wean FiO2 as tolerated. Will remind nurse that there is PRN ativan available. Continue higher doses of steroids. Prone if able. 05/12/21: Patient may need something longer acting for anxiety. Per chart has not gotten any ativan in days. Would be ok with either buspar or low dose klonopin bid. COntinue higher doses of steroids as patient seems to be responding. Prone if possible. 05/11/21: Continue high doses of steroids and continue to wean for sats >88%. Please encourage proning. 05/10/21: Will continue this dose of steroid at least through the weekend and assess for improvement. will speak with RT about aggressive weaning. Full dose anticoagulation continues. Very very guarded to poor prognosis. 05/09/21: Going to consider increasing steroids to 125q8, maybe as early as tomorrow. continue full dose anticoagulation. 05/08/21: Continue anticoagulation and steroids. Prone if possible. Anxiety control. No objection to CTA if this can happen. Very very guarded prognosis. 05/07/21: Spoke with IMS, not opposed to full dose anticoagulation. If patient goes back on NRB HFNC combo may need to consider restarting PPN again. Encourage proning. Guarded prognosis. 05/06/21: Continue to wean FiO2 and flow for sats >88%. Tolerating diet now so will stop PPN. Continue anxiety control. Continue IV steroids. Would not object to transfer to [facility] if bed available. Not sure why she was titrated back up to 100% from 85 as all sats documented in the RT's notes were acceptable. Same for under vital signs as well. 05/03/21: Set back last night from yesterday. Continue bipap therapy for now and attempt HFNC maybe later this afternoon. Continue to use PRN ativan but may need to schedule as she likely took off mask from anxiety. Continue IV steroids. Hold on transfer to COVID Floor. 05/02/21: Continue to wean FiO2 as tolerated for sats >88%. Will continue bipap at night. Patient has no funding so not a candidate for LTACH. Given that she has been stable and not requiring the combo of HFNC and NRB, will consider moving to COVID floor. 05/01/21: Continue to wean FiO2 for sats >88%. A sat of 90 is more than acceptable and oxygen should not be increased for this unless patient desats and remains at a sat lower than 88. Bipap at night to give some form of relief and HFNC during the day. Currently on just this alone which is improvement. Ok with daily diuresis but must monitor renal function and BP closely. She was over diuresed last week and we ended up giving fluid back. Prognosis remains guarded. 04/30/21: Will start CLinimix today for nutritional support, without electro lytes. Check labs in am. Prone if able. Continue precedx for anxiety. Very very guarded prognosis. Attempting our best to not intubate. 04/29/21: Continue precedex. Continue IV solumedrol. Prone if able. Guarded prognosis. 04/28/21: Continue Precedex. Picc team attempting to place line now. Stable on Bipap. Ordered steroids IV solumedrol to start today. Prognosis remains guarded, still at very high risk for intubation. 04/27/21: Hypotension improving/improved. Hold on any further lasix dosing. Continue precedex to help with anxeity. later today please attempt HFNC with NRB if needed. Attempt to feed if possible. Steroids end today, please order solumedrol 40q8 to start tomorrow (04/28/21). guarded prognosis. 04/26/21: Hypotension today, most likely from precedex use and diuresis that I did the last several days. Will bolus again today. Consider midodrine if BP does not respond. 04/25/21: Lasix again today. Keep PRN ativan for now. Hold on precedex for now. Guarded prognosis. Labs ordered for tomorrow. 04/24/21: Lasix today. Will also start patient on low dose PRN ativan. If this does not help will then try precedex. Guarded prognosis. 04/23/21: Prone as tolerated. No lasix today. Continue decadron. Guarded prognosis. High risk for intubation and high mortality with intubation. 04/19/21: Prone as tolerated during the day and sleep prone at night. Continue IV remdesivir and steroids. Did get actemra. Guarded prognosis. 1. Daily net negative state 2. Prone if possible 3. IV remdesivir. 4. Should be a candidate for Actemra 5. IV steroids 6. Guarded Prognosis Subjective Date of service: 06/14/21 Principal diagnosis: Covid-19 Interval history: Still on 30 and 60 Objective Vital Signs - 12hr 06/13/21 06/14/21 06/14/21 23:47 02:29 03:53 Temperature 97.7 F Pulse Rate 78 Respiratory 21 Rate Blood Pressure 100/59 O2 Sat by Pulse 94 94 94 Oximetry 06/14/21 04:51 Temperature 98.2 F Pulse Rate 77 Respiratory 18 Rate Blood Pressure 103/55 O2 Sat by Pulse 94 Oximetry Constitutional: no acute distress, alert Eyes: non-icteric ENT: oropharynx moist Neck: supple Effort: normal Ascultation: Bilateral: diminished breath sounds Cardiovascular: regular rate and rhythm Gastrointestinal: normoactive bowel sounds, soft, non-tender, non-distended Integumentary: normal Extremities: no cyanosis, no edema, pink and warm Neurologic: normal mental status, non-focal exam, pupils equal and round, CN II- XII normal Psychiatric: mood appropriate, affect normal CBC and BMP: 06/11/21 09:38 06/11/21 09:38 ABG, PT/INR, D-dimer: ABG ABG pH 7.403 pH Units (7.350-7.450) 05/14/21 02:23 POC ABG pCO2 45.4 mmHg (32.0-48.0) 05/03/21 04:49 ABG pCO2 50.2 mm Hg 05/14/21 02:23 POC ABG pO2 65.3 mmHg (83-108) L 05/03/21 04:49 ABG pO2 130.3 mm Hg (80.0-90.0) H 05/14/21 02:23 POC ABG HCO3 18.5 05/03/21 04:49 ABG O2 Saturation 98.5 % (95.0-99.0) 05/14/21 02:23 PT/INR, D-dimer D-Dimer 488.49 ng/mlDDU (0-234) H 06/05/21 05:26 Abnormal lab findings: Abnormal Labs 04/16/21 04/16/21 04/16/21 11:42 11:42 11:42 WBC MCHC RDW 16.1 H Lymph % (Auto) 7.8 L Lymph # (Auto) 0.8 L Baso # (Auto) Seg Neutrophils % 87.7 H Seg Neuts % (Manual) Lymphocytes % (Manual) Seg Neutrophils # 8.5 H Seg Neutrophils # Man Lymphocytes # (Manual) D-Dimer 338.70 H ABG pH POC ABG pO2 ABG pO2 ABG HCO3 ABG O2 Saturation ABG Base Excess ABG Oxyhemoglobin ABG Sodium ABG Chloride ABG Glucose Oxyhemoglobin Carboxyhemoglobin Sodium Potassium Chloride Carbon Dioxide BUN Creatinine Glucose 194 H POC Glucose Hemoglobin A1c Ferritin AST ALT Alkaline Phosphatase Lactate Dehydrogenase C-Reactive Protein Total Protein 8.4 H Albumin 3.8 L Arterial Blood Glucose Coronavirus (PCR) 04/16/21 04/16/21 04/17/21 11:42 11:42 03:50 WBC MCHC RDW 16.0 H Lymph % (Auto) 7.7 L Lymph # (Auto) 0.6 L Baso # (Auto) Seg Neutrophils % 89.8 H Seg Neuts % (Manual) Lymphocytes % (Manual) Seg Neutrophils # Seg Neutrophils # Man Lymphocytes # (Manual) D-Dimer ABG pH POC ABG pO2 ABG pO2 ABG HCO3 ABG O2 Saturation ABG Base Excess ABG Oxyhemoglobin ABG Sodium ABG Chloride ABG Glucose Oxyhemoglobin Carboxyhemoglobin Sodium Potassium Chloride Carbon Dioxide BUN Creatinine Glucose 195 H POC Glucose Hemoglobin A1c Ferritin 254.3 H AST ALT Alkaline Phosphatase Lactate Dehydrogenase 359 H C-Reactive Protein 15.20 H Total Protein Albumin Arterial Blood Glucose Coronavirus (PCR) 04/17/21 04/17/21 04/17/21 03:50 08:26 08:26 WBC MCHC RDW Lymph % (Auto) Lymph # (Auto) Baso # (Auto) Seg Neutrophils % Seg Neuts % (Manual) Lymphocytes % (Manual) Seg Neutrophils # Seg Neutrophils # Man Lymphocytes # (Manual) D-Dimer 262.48 H ABG pH POC ABG pO2 ABG pO2 ABG HCO3 ABG O2 Saturation ABG Base Excess ABG Oxyhemoglobin ABG Sodium ABG Chloride ABG Glucose Oxyhemoglobin Carboxyhemoglobin Sodium Potassium Chloride Carbon Dioxide BUN 20 H Creatinine 0.5 L Glucose 249 H 225 H POC Glucose Hemoglobin A1c Ferritin AST ALT Alkaline Phosphatase Lactate Dehydrogenase 338 H C-Reactive Protein 17.20 H Total Protein Albumin 3.2 L Arterial Blood Glucose Coronavirus (PCR) 04/17/21 04/17/21 04/17/21 08:26 15:04 Unknown WBC MCHC RDW Lymph % (Auto) Lymph # (Auto) Baso # (Auto) Seg Neutrophils % Seg Neuts % (Manual) Lymphocytes % (Manual) Seg Neutrophils # Seg Neutrophils # Man Lymphocytes # (Manual) D-Dimer ABG pH POC ABG pO2 ABG pO2 ABG HCO3 ABG O2 Saturation ABG Base Excess ABG Oxyhemoglobin ABG Sodium ABG Chloride ABG Glucose Oxyhemoglobin Carboxyhemoglobin Sodium Potassium Chloride Carbon Dioxide BUN 20 H Creatinine 0.5 L Glucose 246 H POC Glucose Hemoglobin A1c Ferritin 392.0 H AST ALT Alkaline Phosphatase Lactate Dehydrogenase C-Reactive Protein Total Protein 8.3 H Albumin 3.1 L Arterial Blood Glucose Coronavirus (PCR) Positive A 04/18/21 04/18/21 04/18/21 05:06 05:06 07:36 WBC 11.6 H MCHC RDW 16.1 H Lymph % (Auto) Lymph # (Auto) Baso # (Auto) Seg Neutrophils % Seg Neuts % (Manual) Lymphocytes % (Manual) Seg Neutrophils # Seg Neutrophils # Man Lymphocytes # (Manual) D-Dimer ABG pH POC ABG pO2 ABG pO2 ABG HCO3 ABG O2 Saturation ABG Base Excess ABG Oxyhemoglobin ABG Sodium ABG Chloride ABG Glucose Oxyhemoglobin Carboxyhemoglobin Sodium Potassium 5.2 H Chloride Carbon Dioxide BUN 22 H Creatinine 0.5 L Glucose 315 H POC Glucose Hemoglobin A1c 8.5 H Ferritin AST ALT Alkaline Phosphatase Lactate Dehydrogenase C-Reactive Protein Total Protein Albumin 3.3 L Arterial Blood Glucose Coronavirus (PCR) 04/18/21 04/18/21 04/18/21 11:59 16:43 23:24 WBC MCHC RDW Lymph % (Auto) Lymph # (Auto) Baso # (Auto) Seg Neutrophils % Seg Neuts % (Manual) Lymphocytes % (Manual) Seg Neutrophils # Seg Neutrophils # Man Lymphocytes # (Manual) D-Dimer ABG pH POC ABG pO2 ABG pO2 ABG HCO3 ABG O2 Saturation ABG Base Excess ABG Oxyhemoglobin ABG Sodium ABG Chloride ABG Glucose Oxyhemoglobin Carboxyhemoglobin Sodium Potassium Chloride Carbon Dioxide BUN Creatinine Glucose POC Glucose 284 H 273 H 290 H Hemoglobin A1c Ferritin AST ALT Alkaline Phosphatase Lactate Dehydrogenase C-Reactive Protein Total Protein Albumin Arterial Blood Glucose Coronavirus (PCR) 04/19/21 04/19/21 04/19/21 04:19 04:19 08:10 WBC MCHC RDW 15.7 H Lymph % (Auto) Lymph # (Auto) Baso # (Auto) Seg Neutrophils % Seg Neuts % (Manual) Lymphocytes % (Manual) Seg Neutrophils # Seg Neutrophils # Man Lymphocytes # (Manual) D-Dimer ABG pH POC ABG pO2 ABG pO2 ABG HCO3 ABG O2 Saturation ABG Base Excess ABG Oxyhemoglobin ABG Sodium ABG Chloride ABG Glucose Oxyhemoglobin Carboxyhemoglobin Sodium Potassium Chloride Carbon Dioxide BUN 27 H Creatinine 0.4 L Glucose 184 H POC Glucose 194 H Hemoglobin A1c Ferritin AST ALT Alkaline Phosphatase Lactate Dehydrogenase C-Reactive Protein Total Protein Albumin 3.1 L Arterial Blood Glucose Coronavirus (PCR) 04/19/21 04/19/21 04/19/21 11:38 16:25 22:04 WBC MCHC RDW Lymph % (Auto) Lymph # (Auto) Baso # (Auto) Seg Neutrophils % Seg Neuts % (Manual) Lymphocytes % (Manual) Seg Neutrophils # Seg Neutrophils # Man Lymphocytes # (Manual) D-Dimer ABG pH POC ABG pO2 ABG pO2 ABG HCO3 ABG O2 Saturation ABG Base Excess ABG Oxyhemoglobin ABG Sodium ABG Chloride ABG Glucose Oxyhemoglobin Carboxyhemoglobin Sodium Potassium Chloride Carbon Dioxide BUN Creatinine Glucose POC Glucose 224 H 297 H 251 H Hemoglobin A1c Ferritin AST ALT Alkaline Phosphatase Lactate Dehydrogenase C-Reactive Protein Total Protein Albumin Arterial Blood Glucose Coronavirus (PCR) 04/20/21 04/20/21 04/20/21 05:28 08:43 16:21 WBC MCHC RDW Lymph % (Auto) Lymph # (Auto) Baso # (Auto) Seg Neutrophils % Seg Neuts % (Manual) Lymphocytes % (Manual) Seg Neutrophils # Seg Neutrophils # Man Lymphocytes # (Manual) D-Dimer ABG pH POC ABG pO2 ABG pO2 ABG HCO3 ABG O2 Saturation ABG Base Excess ABG Oxyhemoglobin ABG Sodium ABG Chloride ABG Glucose Oxyhemoglobin Carboxyhemoglobin Sodium Potassium Chloride Carbon Dioxide BUN 27 H Creatinine Glucose 192 H POC Glucose 173 H 253 H Hemoglobin A1c Ferritin AST ALT Alkaline Phosphatase Lactate Dehydrogenase C-Reactive Protein Total Protein Albumin 3.0 L Arterial Blood Glucose Coronavirus (PCR) 04/21/21 04/21/21 04/21/21 07:58 12:05 16:08 WBC MCHC RDW Lymph % (Auto) Lymph # (Auto) Baso # (Auto) Seg Neutrophils % Seg Neuts % (Manual) Lymphocytes % (Manual) Seg Neutrophils # Seg Neutrophils # Man Lymphocytes # (Manual) D-Dimer ABG pH POC ABG pO2 ABG pO2 ABG HCO3 ABG O2 Saturation ABG Base Excess ABG Oxyhemoglobin ABG Sodium ABG Chloride ABG Glucose Oxyhemoglobin Carboxyhemoglobin Sodium Potassium Chloride Carbon Dioxide BUN Creatinine Glucose POC Glucose 140 H 252 H 214 H Hemoglobin A1c Ferritin AST ALT Alkaline Phosphatase Lactate Dehydrogenase C-Reactive Protein Total Protein Albumin Arterial Blood Glucose Coronavirus (PCR) 04/21/21 04/22/21 04/22/21 21:42 08:37 12:01 WBC MCHC RDW Lymph % (Auto) Lymph # (Auto) Baso # (Auto) Seg Neutrophils % Seg Neuts % (Manual) Lymphocytes % (Manual) Seg Neutrophils # Seg Neutrophils # Man Lymphocytes # (Manual) D-Dimer ABG pH 7.457 H POC ABG pO2 49.4 L ABG pO2 ABG HCO3 ABG O2 Saturation ABG Base Excess ABG Oxyhemoglobin 85.6 L ABG Sodium ABG Chloride ABG Glucose 121 H Oxyhemoglobin Carboxyhemoglobin 0.3 L Sodium Potassium Chloride Carbon Dioxide BUN Creatinine Glucose POC Glucose 162 H 227 H Hemoglobin A1c Ferritin AST ALT Alkaline Phosphatase Lactate Dehydrogenase C-Reactive Protein Total Protein Albumin Arterial Blood Glucose 121 H Coronavirus (PCR) 04/22/21 04/22/21 04/23/21 16:26 22:23 04:52 WBC MCHC RDW 15.7 H Lymph % (Auto) Lymph # (Auto) Baso # (Auto) Seg Neutrophils % Seg Neuts % (Manual) Lymphocytes % (Manual) Seg Neutrophils # Seg Neutrophils # Man Lymphocytes # (Manual) D-Dimer ABG pH POC ABG pO2 ABG pO2 ABG HCO3 ABG O2 Saturation ABG Base Excess ABG Oxyhemoglobin ABG Sodium ABG Chloride ABG Glucose Oxyhemoglobin Carboxyhemoglobin Sodium Potassium Chloride Carbon Dioxide BUN Creatinine Glucose POC Glucose 200 H 136 H Hemoglobin A1c Ferritin AST ALT Alkaline Phosphatase Lactate Dehydrogenase C-Reactive Protein Total Protein Albumin Arterial Blood Glucose Coronavirus (PCR) 04/23/21 04/23/21 04/23/21 04:52 12:06 17:41 WBC MCHC RDW Lymph % (Auto) Lymph # (Auto) Baso # (Auto) Seg Neutrophils % Seg Neuts % (Manual) Lymphocytes % (Manual) Seg Neutrophils # Seg Neutrophils # Man Lymphocytes # (Manual) D-Dimer ABG pH POC ABG pO2 ABG pO2 ABG HCO3 ABG O2 Saturation ABG Base Excess ABG Oxyhemoglobin ABG Sodium ABG Chloride ABG Glucose Oxyhemoglobin Carboxyhemoglobin Sodium 136 L Potassium Chloride 97.7 L Carbon Dioxide BUN 23 H Creatinine Glucose 101 H POC Glucose 202 H 169 H Hemoglobin A1c Ferritin AST 46 H ALT Alkaline Phosphatase Lactate Dehydrogenase C-Reactive Protein Total Protein Albumin 3.3 L Arterial Blood Glucose Coronavirus (PCR) 04/23/21 04/24/21 04/24/21 23:08 05:17 08:38 WBC MCHC RDW Lymph % (Auto) Lymph # (Auto) Baso # (Auto) Seg Neutrophils % Seg Neuts % (Manual) Lymphocytes % (Manual) Seg Neutrophils # Seg Neutrophils # Man Lymphocytes # (Manual) D-Dimer ABG pH POC ABG pO2 ABG pO2 ABG HCO3 ABG O2 Saturation ABG Base Excess ABG Oxyhemoglobin ABG Sodium ABG Chloride ABG Glucose Oxyhemoglobin Carboxyhemoglobin Sodium Potassium Chloride Carbon Dioxide BUN Creatinine Glucose POC Glucose 111 H 108 H 126 H Hemoglobin A1c Ferritin AST ALT Alkaline Phosphatase Lactate Dehydrogenase C-Reactive Protein Total Protein Albumin Arterial Blood Glucose Coronavirus (PCR) 04/24/21 04/24/21 04/24/21 11:54 17:57 21:23 WBC MCHC RDW Lymph % (Auto) Lymph # (Auto) Baso # (Auto) Seg Neutrophils % Seg Neuts % (Manual) Lymphocytes % (Manual) Seg Neutrophils # Seg Neutrophils # Man Lymphocytes # (Manual) D-Dimer ABG pH POC ABG pO2 ABG pO2 ABG HCO3 ABG O2 Saturation ABG Base Excess ABG Oxyhemoglobin ABG Sodium ABG Chloride ABG Glucose Oxyhemoglobin Carboxyhemoglobin Sodium Potassium Chloride Carbon Dioxide BUN Creatinine Glucose POC Glucose 147 H 177 H 138 H Hemoglobin A1c Ferritin AST ALT Alkaline Phosphatase Lactate Dehydrogenase C-Reactive Protein Total Protein Albumin Arterial Blood Glucose Coronavirus (PCR) 04/25/21 04/25/21 04/25/21 07:06 11:23 15:43 WBC MCHC RDW Lymph % (Auto) Lymph # (Auto) Baso # (Auto) Seg Neutrophils % Seg Neuts % (Manual) Lymphocytes % (Manual) Seg Neutrophils # Seg Neutrophils # Man Lymphocytes # (Manual) D-Dimer ABG pH POC ABG pO2 ABG pO2 ABG HCO3 ABG O2 Saturation ABG Base Excess ABG Oxyhemoglobin ABG Sodium ABG Chloride ABG Glucose Oxyhemoglobin Carboxyhemoglobin Sodium Potassium Chloride Carbon Dioxide BUN Creatinine Glucose POC Glucose 147 H 169 H 227 H Hemoglobin A1c Ferritin AST ALT Alkaline Phosphatase Lactate Dehydrogenase C-Reactive Protein Total Protein Albumin Arterial Blood Glucose Coronavirus (PCR) 04/25/21 04/26/21 04/26/21 21:22 02:45 05:15 WBC MCHC RDW Lymph % (Auto) Lymph # (Auto) Baso # (Auto) Seg Neutrophils % Seg Neuts % (Manual) Lymphocytes % (Manual) Seg Neutrophils # Seg Neutrophils # Man Lymphocytes # (Manual) D-Dimer ABG pH POC ABG pO2 70.7 L ABG pO2 ABG HCO3 ABG O2 Saturation ABG Base Excess ABG Oxyhemoglobin 93.0 L ABG Sodium 132.7 L ABG Chloride ABG Glucose 115 H Oxyhemoglobin Carboxyhemoglobin Sodium Potassium Chloride 95.8 L Carbon Dioxide 32 H BUN 20 H Creatinine Glucose 102 H POC Glucose 196 H Hemoglobin A1c Ferritin AST ALT Alkaline Phosphatase Lactate Dehydrogenase C-Reactive Protein Total Protein Albumin Arterial Blood Glucose 115 H Coronavirus (PCR) 04/26/21 04/26/21 04/26/21 11:49 16:09 21:07 WBC MCHC RDW Lymph % (Auto) Lymph # (Auto) Baso # (Auto) Seg Neutrophils % Seg Neuts % (Manual) Lymphocytes % (Manual) Seg Neutrophils # Seg Neutrophils # Man Lymphocytes # (Manual) D-Dimer ABG pH POC ABG pO2 ABG pO2 ABG HCO3 ABG O2 Saturation ABG Base Excess ABG Oxyhemoglobin ABG Sodium ABG Chloride ABG Glucose Oxyhemoglobin Carboxyhemoglobin Sodium Potassium Chloride Carbon Dioxide BUN Creatinine Glucose POC Glucose 114 H 188 H 136 H Hemoglobin A1c Ferritin AST ALT Alkaline Phosphatase Lactate Dehydrogenase C-Reactive Protein Total Protein Albumin Arterial Blood Glucose Coronavirus (PCR) 04/27/21 04/27/21 04/28/21 17:34 22:12 08:26 WBC MCHC RDW Lymph % (Auto) Lymph # (Auto) Baso # (Auto) Seg Neutrophils % Seg Neuts % (Manual) Lymphocytes % (Manual) Seg Neutrophils # Seg Neutrophils # Man Lymphocytes # (Manual) D-Dimer ABG pH POC ABG pO2 ABG pO2 ABG HCO3 ABG O2 Saturation ABG Base Excess ABG Oxyhemoglobin ABG Sodium ABG Chloride ABG Glucose Oxyhemoglobin Carboxyhemoglobin Sodium Potassium Chloride Carbon Dioxide BUN Creatinine Glucose POC Glucose 128 H 159 H 69 L Hemoglobin A1c Ferritin AST ALT Alkaline Phosphatase Lactate Dehydrogenase C-Reactive Protein Total Protein Albumin Arterial Blood Glucose Coronavirus (PCR) 04/28/21 04/28/21 04/29/21 12:22 21:11 06:05 WBC MCHC RDW Lymph % (Auto) Lymph # (Auto) Baso # (Auto) Seg Neutrophils % Seg Neuts % (Manual) Lymphocytes % (Manual) Seg Neutrophils # Seg Neutrophils # Man Lymphocytes # (Manual) D-Dimer ABG pH POC ABG pO2 ABG pO2 ABG HCO3 ABG O2 Saturation ABG Base Excess ABG Oxyhemoglobin ABG Sodium ABG Chloride ABG Glucose Oxyhemoglobin Carboxyhemoglobin Sodium 132 L Potassium Chloride 94.4 L Carbon Dioxide BUN Creatinine 0.2 L D Glucose 140 H POC Glucose 141 H 171 H Hemoglobin A1c Ferritin AST ALT Alkaline Phosphatase Lactate Dehydrogenase C-Reactive Protein Total Protein Albumin Arterial Blood Glucose Coronavirus (PCR) 04/29/21 04/29/21 04/29/21 06:05 07:24 11:36 WBC MCHC 35 H RDW 15.9 H Lymph % (Auto) Lymph # (Auto) Baso # (Auto) Seg Neutrophils % Seg Neuts % (Manual) Lymphocytes % (Manual) Seg Neutrophils # Seg Neutrophils # Man Lymphocytes # (Manual) D-Dimer ABG pH POC ABG pO2 ABG pO2 ABG HCO3 ABG O2 Saturation ABG Base Excess ABG Oxyhemoglobin ABG Sodium ABG Chloride ABG Glucose Oxyhemoglobin Carboxyhemoglobin Sodium Potassium Chloride Carbon Dioxide BUN Creatinine Glucose POC Glucose 141 H 220 H Hemoglobin A1c Ferritin AST ALT Alkaline Phosphatase Lactate Dehydrogenase C-Reactive Protein Total Protein Albumin Arterial Blood Glucose Coronavirus (PCR) 04/29/21 04/29/21 04/29/21 14:23 15:30 17:06 WBC MCHC RDW Lymph % (Auto) Lymph # (Auto) Baso # (Auto) Seg Neutrophils % Seg Neuts % (Manual) Lymphocytes % (Manual) Seg Neutrophils # Seg Neutrophils # Man Lymphocytes # (Manual) D-Dimer ABG pH POC ABG pO2 ABG pO2 52.6 L ABG HCO3 ABG O2 Saturation 86.4 L ABG Base Excess ABG Oxyhemoglobin ABG Sodium ABG Chloride ABG Glucose Oxyhemoglobin 84.6 L Carboxyhemoglobin Sodium Potassium Chloride Carbon Dioxide BUN Creatinine Glucose POC Glucose 173 H 158 H Hemoglobin A1c Ferritin AST ALT Alkaline Phosphatase Lactate Dehydrogenase C-Reactive Protein Total Protein Albumin Arterial Blood Glucose Coronavirus (PCR) 04/29/21 04/30/21 04/30/21 21:27 07:16 08:00 WBC MCHC RDW 16.1 H Lymph % (Auto) Lymph # (Auto) Baso # (Auto) Seg Neutrophils % Seg Neuts % (Manual) Lymphocytes % (Manual) Seg Neutrophils # Seg Neutrophils # Man Lymphocytes # (Manual) D-Dimer ABG pH POC ABG pO2 ABG pO2 ABG HCO3 ABG O2 Saturation ABG Base Excess ABG Oxyhemoglobin ABG Sodium ABG Chloride ABG Glucose Oxyhemoglobin Carboxyhemoglobin Sodium Potassium Chloride Carbon Dioxide BUN Creatinine Glucose POC Glucose 244 H 175 H Hemoglobin A1c Ferritin AST ALT Alkaline Phosphatase Lactate Dehydrogenase C-Reactive Protein Total Protein Albumin Arterial Blood Glucose Coronavirus (PCR) 04/30/21 04/30/21 04/30/21 08:00 08:00 11:03 WBC MCHC RDW Lymph % (Auto) Lymph # (Auto) Baso # (Auto) Seg Neutrophils % Seg Neuts % (Manual) Lymphocytes % (Manual) Seg Neutrophils # Seg Neutrophils # Man Lymphocytes # (Manual) D-Dimer 1796.87 H ABG pH POC ABG pO2 ABG pO2 ABG HCO3 ABG O2 Saturation ABG Base Excess ABG Oxyhemoglobin ABG Sodium ABG Chloride ABG Glucose Oxyhemoglobin Carboxyhemoglobin Sodium 135 L Potassium Chloride 96.3 L Carbon Dioxide BUN Creatinine 0.2 L Glucose 153 H POC Glucose 183 H Hemoglobin A1c Ferritin AST 41 H ALT 76 H Alkaline Phosphatase 160 H Lactate Dehydrogenase 522 H C-Reactive Protein Total Protein 6.1 L Albumin 3.1 L Arterial Blood Glucose Coronavirus (PCR) 04/30/21 04/30/21 05/01/21 17:04 22:17 05:39 WBC MCHC RDW Lymph % (Auto) Lymph # (Auto) Baso # (Auto) Seg Neutrophils % Seg Neuts % (Manual) Lymphocytes % (Manual) Seg Neutrophils # Seg Neutrophils # Man Lymphocytes # (Manual) D-Dimer ABG pH POC ABG pO2 ABG pO2 ABG HCO3 ABG O2 Saturation ABG Base Excess ABG Oxyhemoglobin ABG Sodium ABG Chloride ABG Glucose Oxyhemoglobin Carboxyhemoglobin Sodium 133 L Potassium Chloride 92.1 L Carbon Dioxide BUN 24 H Creatinine 0.4 L D Glucose 269 H POC Glucose 167 H 208 H Hemoglobin A1c Ferritin AST ALT 66 H Alkaline Phosphatase 142 H Lactate Dehydrogenase C-Reactive Protein Total Protein Albumin 3.2 L Arterial Blood Glucose Coronavirus (PCR) 05/01/21 05/01/21 05/01/21 05:39 05:39 07:45 WBC MCHC RDW 16.0 H Lymph % (Auto) Lymph # (Auto) Baso # (Auto) Seg Neutrophils % Seg Neuts % (Manual) Lymphocytes % (Manual) Seg Neutrophils # Seg Neutrophils # Man Lymphocytes # (Manual) D-Dimer 3984.95 H ABG pH POC ABG pO2 ABG pO2 ABG HCO3 ABG O2 Saturation ABG Base Excess ABG Oxyhemoglobin ABG Sodium ABG Chloride ABG Glucose Oxyhemoglobin Carboxyhemoglobin Sodium Potassium Chloride Carbon Dioxide BUN Creatinine Glucose POC Glucose 229 H Hemoglobin A1c Ferritin AST ALT Alkaline Phosphatase Lactate Dehydrogenase C-Reactive Protein Total Protein Albumin Arterial Blood Glucose Coronavirus (PCR) 05/01/21 05/01/21 05/01/21 12:10 15:46 21:06 WBC MCHC RDW Lymph % (Auto) Lymph # (Auto) Baso # (Auto) Seg Neutrophils % Seg Neuts % (Manual) Lymphocytes % (Manual) Seg Neutrophils # Seg Neutrophils # Man Lymphocytes # (Manual) D-Dimer ABG pH POC ABG pO2 ABG pO2 ABG HCO3 ABG O2 Saturation ABG Base Excess ABG Oxyhemoglobin ABG Sodium ABG Chloride ABG Glucose Oxyhemoglobin Carboxyhemoglobin Sodium Potassium Chloride Carbon Dioxide BUN Creatinine Glucose POC Glucose 296 H 279 H 232 H Hemoglobin A1c Ferritin AST ALT Alkaline Phosphatase Lactate Dehydrogenase C-Reactive Protein Total Protein Albumin Arterial Blood Glucose Coronavirus (PCR) 05/02/21 05/02/21 05/02/21 04:55 04:55 04:55 WBC MCHC RDW 16.1 H Lymph % (Auto) Lymph # (Auto) Baso # (Auto) Seg Neutrophils % Seg Neuts % (Manual) Lymphocytes % (Manual) Seg Neutrophils # Seg Neutrophils # Man Lymphocytes # (Manual) D-Dimer 1401.08 H ABG pH POC ABG pO2 ABG pO2 ABG HCO3 ABG O2 Saturation ABG Base Excess ABG Oxyhemoglobin ABG Sodium ABG Chloride ABG Glucose Oxyhemoglobin Carboxyhemoglobin Sodium 131 L Potassium Chloride 95.5 L Carbon Dioxide BUN 20 H Creatinine 0.3 L Glucose 288 H POC Glucose Hemoglobin A1c Ferritin AST ALT Alkaline Phosphatase Lactate Dehydrogenase C-Reactive Protein Total Protein 6.0 L Albumin 3.1 L Arterial Blood Glucose Coronavirus (PCR) 05/02/21 05/02/21 05/02/21 07:53 11:45 15:25 WBC MCHC RDW Lymph % (Auto) Lymph # (Auto) Baso # (Auto) Seg Neutrophils % Seg Neuts % (Manual) Lymphocytes % (Manual) Seg Neutrophils # Seg Neutrophils # Man Lymphocytes # (Manual) D-Dimer ABG pH POC ABG pO2 ABG pO2 ABG HCO3 ABG O2 Saturation ABG Base Excess ABG Oxyhemoglobin ABG Sodium ABG Chloride ABG Glucose Oxyhemoglobin Carboxyhemoglobin Sodium Potassium Chloride Carbon Dioxide BUN Creatinine Glucose POC Glucose 180 H 228 H 275 H Hemoglobin A1c Ferritin AST ALT Alkaline Phosphatase Lactate Dehydrogenase C-Reactive Protein Total Protein Albumin Arterial Blood Glucose Coronavirus (PCR) 05/02/21 05/03/21 05/03/21 22:56 04:30 04:49 WBC MCHC RDW Lymph % (Auto) Lymph # (Auto) Baso # (Auto) Seg Neutrophils % Seg Neuts % (Manual) Lymphocytes % (Manual) Seg Neutrophils # Seg Neutrophils # Man Lymphocytes # (Manual) D-Dimer ABG pH 7.229 L POC ABG pO2 65.3 L ABG pO2 ABG HCO3 ABG O2 Saturation ABG Base Excess ABG Oxyhemoglobin 87.8 L ABG Sodium 133.0 L ABG Chloride 97.0 L ABG Glucose 403 H Oxyhemoglobin Carboxyhemoglobin Sodium 130 L Potassium Chloride 94.9 L Carbon Dioxide BUN 20 H Creatinine 0.5 L D Glucose 359 H POC Glucose 293 H Hemoglobin A1c Ferritin AST 54 H ALT 75 H Alkaline Phosphatase 138 H Lactate Dehydrogenase C-Reactive Protein Total Protein Albumin 3.6 L Arterial Blood Glucose 403 H Coronavirus (PCR) 05/03/21 05/03/21 05/03/21 05:27 11:26 17:57 WBC MCHC RDW Lymph % (Auto) Lymph # (Auto) Baso # (Auto) Seg Neutrophils % Seg Neuts % (Manual) Lymphocytes % (Manual) Seg Neutrophils # Seg Neutrophils # Man Lymphocytes # (Manual) D-Dimer ABG pH POC ABG pO2 ABG pO2 ABG HCO3 ABG O2 Saturation ABG Base Excess ABG Oxyhemoglobin ABG Sodium ABG Chloride ABG Glucose Oxyhemoglobin Carboxyhemoglobin Sodium Potassium Chloride Carbon Dioxide BUN Creatinine Glucose POC Glucose 361 H 297 H 226 H Hemoglobin A1c Ferritin AST ALT Alkaline Phosphatase Lactate Dehydrogenase C-Reactive Protein Total Protein Albumin Arterial Blood Glucose Coronavirus (PCR) 05/03/21 05/04/21 05/04/21 23:12 05:12 07:30 WBC MCHC RDW Lymph % (Auto) Lymph # (Auto) Baso # (Auto) Seg Neutrophils % Seg Neuts % (Manual) Lymphocytes % (Manual) Seg Neutrophils # Seg Neutrophils # Man Lymphocytes # (Manual) D-Dimer ABG pH POC ABG pO2 ABG pO2 ABG HCO3 ABG O2 Saturation ABG Base Excess ABG Oxyhemoglobin ABG Sodium ABG Chloride ABG Glucose Oxyhemoglobin Carboxyhemoglobin Sodium Potassium Chloride Carbon Dioxide BUN Creatinine Glucose POC Glucose 282 H 285 H 254 H Hemoglobin A1c Ferritin AST ALT Alkaline Phosphatase Lactate Dehydrogenase C-Reactive Protein Total Protein Albumin Arterial Blood Glucose Coronavirus (PCR) 05/04/21 05/04/21 05/04/21 08:58 11:45 16:07 WBC MCHC RDW Lymph % (Auto) Lymph # (Auto) Baso # (Auto) Seg Neutrophils % Seg Neuts % (Manual) Lymphocytes % (Manual) Seg Neutrophils # Seg Neutrophils # Man Lymphocytes # (Manual) D-Dimer ABG pH POC ABG pO2 ABG pO2 ABG HCO3 ABG O2 Saturation ABG Base Excess ABG Oxyhemoglobin ABG Sodium ABG Chloride ABG Glucose Oxyhemoglobin Carboxyhemoglobin Sodium 134 L Potassium Chloride Carbon Dioxide BUN 20 H Creatinine 0.3 L Glucose 267 H POC Glucose 244 H 297 H Hemoglobin A1c Ferritin AST ALT Alkaline Phosphatase Lactate Dehydrogenase C-Reactive Protein Total Protein 6.0 L Albumin 3.2 L Arterial Blood Glucose Coronavirus (PCR) 05/04/21 05/05/21 05/05/21 23:32 05:00 05:13 WBC MCHC RDW Lymph % (Auto) Lymph # (Auto) Baso # (Auto) Seg Neutrophils % Seg Neuts % (Manual) Lymphocytes % (Manual) Seg Neutrophils # Seg Neutrophils # Man Lymphocytes # (Manual) D-Dimer ABG pH POC ABG pO2 ABG pO2 ABG HCO3 ABG O2 Saturation ABG Base Excess ABG Oxyhemoglobin ABG Sodium ABG Chloride ABG Glucose Oxyhemoglobin Carboxyhemoglobin Sodium 132 L Potassium Chloride 96.4 L Carbon Dioxide BUN 22 H Creatinine 0.3 L Glucose 228 H POC Glucose 154 H 260 H Hemoglobin A1c Ferritin AST ALT 67 H Alkaline Phosphatase Lactate Dehydrogenase C-Reactive Protein Total Protein 6.1 L Albumin 3.2 L Arterial Blood Glucose Coronavirus (PCR) 05/05/21 05/05/21 05/05/21 11:32 17:49 23:07 WBC MCHC RDW Lymph % (Auto) Lymph # (Auto) Baso # (Auto) Seg Neutrophils % Seg Neuts % (Manual) Lymphocytes % (Manual) Seg Neutrophils # Seg Neutrophils # Man Lymphocytes # (Manual) D-Dimer ABG pH POC ABG pO2 ABG pO2 ABG HCO3 ABG O2 Saturation ABG Base Excess ABG Oxyhemoglobin ABG Sodium ABG Chloride ABG Glucose Oxyhemoglobin Carboxyhemoglobin Sodium Potassium Chloride Carbon Dioxide BUN Creatinine Glucose POC Glucose 279 H 308 H 213 H Hemoglobin A1c Ferritin AST ALT Alkaline Phosphatase Lactate Dehydrogenase C-Reactive Protein Total Protein Albumin Arterial Blood Glucose Coronavirus (PCR) 05/06/21 05/06/21 05/06/21 05:00 05:00 05:20 WBC MCHC RDW 16.8 H Lymph % (Auto) Lymph # (Auto) Baso # (Auto) Seg Neutrophils % Seg Neuts % (Manual) 99.0 H Lymphocytes % (Manual) Seg Neutrophils # Seg Neutrophils # Man 10.9 H Lymphocytes # (Manual) 0.0 L D-Dimer ABG pH POC ABG pO2 ABG pO2 ABG HCO3 ABG O2 Saturation ABG Base Excess ABG Oxyhemoglobin ABG Sodium ABG Chloride ABG Glucose Oxyhemoglobin Carboxyhemoglobin Sodium 133 L Potassium Chloride Carbon Dioxide BUN 21 H Creatinine 0.3 L Glucose 259 H POC Glucose 308 H Hemoglobin A1c Ferritin AST ALT Alkaline Phosphatase Lactate Dehydrogenase C-Reactive Protein Total Protein Albumin 3.2 L Arterial Blood Glucose Coronavirus (PCR) 05/06/21 05/06/21 05/06/21 11:24 17:54 21:32 WBC MCHC RDW Lymph % (Auto) Lymph # (Auto) Baso # (Auto) Seg Neutrophils % Seg Neuts % (Manual) Lymphocytes % (Manual) Seg Neutrophils # Seg Neutrophils # Man Lymphocytes # (Manual) D-Dimer ABG pH POC ABG pO2 ABG pO2 ABG HCO3 ABG O2 Saturation ABG Base Excess ABG Oxyhemoglobin ABG Sodium ABG Chloride ABG Glucose Oxyhemoglobin Carboxyhemoglobin Sodium Potassium Chloride Carbon Dioxide BUN Creatinine Glucose POC Glucose 262 H 124 H 246 H Hemoglobin A1c Ferritin AST ALT Alkaline Phosphatase Lactate Dehydrogenase C-Reactive Protein Total Protein Albumin Arterial Blood Glucose Coronavirus (PCR) 05/06/21 05/07/21 05/07/21 23:10 04:54 04:54 WBC MCHC RDW Lymph % (Auto) Lymph # (Auto) Baso # (Auto) Seg Neutrophils % Seg Neuts % (Manual) Lymphocytes % (Manual) Seg Neutrophils # Seg Neutrophils # Man Lymphocytes # (Manual) D-Dimer 1609.28 H ABG pH POC ABG pO2 ABG pO2 ABG HCO3 ABG O2 Saturation ABG Base Excess ABG Oxyhemoglobin ABG Sodium ABG Chloride ABG Glucose Oxyhemoglobin Carboxyhemoglobin Sodium 136 L Potassium Chloride Carbon Dioxide BUN 23 H Creatinine 0.3 L Glucose 110 H POC Glucose 249 H Hemoglobin A1c Ferritin AST ALT Alkaline Phosphatase Lactate Dehydrogenase C-Reactive Protein Total Protein 6.2 L Albumin 3.0 L Arterial Blood Glucose Coronavirus (PCR) 05/07/21 05/07/21 05/07/21 04:54 04:54 11:41 WBC MCHC RDW Lymph % (Auto) Lymph # (Auto) Baso # (Auto) Seg Neutrophils % Seg Neuts % (Manual) Lymphocytes % (Manual) Seg Neutrophils # Seg Neutrophils # Man Lymphocytes # (Manual) D-Dimer ABG pH POC ABG pO2 ABG pO2 ABG HCO3 ABG O2 Saturation ABG Base Excess ABG Oxyhemoglobin ABG Sodium ABG Chloride ABG Glucose Oxyhemoglobin Carboxyhemoglobin Sodium Potassium Chloride Carbon Dioxide BUN Creatinine Glucose POC Glucose 118 H Hemoglobin A1c Ferritin 296.1 H AST ALT Alkaline Phosphatase Lactate Dehydrogenase 724 H C-Reactive Protein Total Protein Albumin Arterial Blood Glucose Coronavirus (PCR) 05/07/21 05/07/21 05/08/21 16:43 22:34 06:44 WBC MCHC RDW Lymph % (Auto) Lymph # (Auto) Baso # (Auto) Seg Neutrophils % Seg Neuts % (Manual) Lymphocytes % (Manual) Seg Neutrophils # Seg Neutrophils # Man Lymphocytes # (Manual) D-Dimer ABG pH POC ABG pO2 ABG pO2 ABG HCO3 ABG O2 Saturation ABG Base Excess ABG Oxyhemoglobin ABG Sodium ABG Chloride ABG Glucose Oxyhemoglobin Carboxyhemoglobin Sodium Potassium Chloride Carbon Dioxide BUN Creatinine Glucose POC Glucose 159 H 233 H 235 H Hemoglobin A1c Ferritin AST ALT Alkaline Phosphatase Lactate Dehydrogenase C-Reactive Protein Total Protein Albumin Arterial Blood Glucose Coronavirus (PCR) 05/08/21 05/08/21 05/08/21 07:49 11:56 17:13 WBC MCHC RDW Lymph % (Auto) Lymph # (Auto) Baso # (Auto) Seg Neutrophils % Seg Neuts % (Manual) Lymphocytes % (Manual) Seg Neutrophils # Seg Neutrophils # Man Lymphocytes # (Manual) D-Dimer ABG pH POC ABG pO2 ABG pO2 ABG HCO3 ABG O2 Saturation ABG Base Excess ABG Oxyhemoglobin ABG Sodium ABG Chloride ABG Glucose Oxyhemoglobin Carboxyhemoglobin Sodium Potassium Chloride Carbon Dioxide BUN Creatinine Glucose POC Glucose 219 H 184 H 182 H Hemoglobin A1c Ferritin AST ALT Alkaline Phosphatase Lactate Dehydrogenase C-Reactive Protein Total Protein Albumin Arterial Blood Glucose Coronavirus (PCR) 05/08/21 05/09/21 05/09/21 23:35 05:20 05:20 WBC MCHC RDW Lymph % (Auto) Lymph # (Auto) Baso # (Auto) Seg Neutrophils % Seg Neuts % (Manual) Lymphocytes % (Manual) Seg Neutrophils # Seg Neutrophils # Man Lymphocytes # (Manual) D-Dimer 1003.87 H ABG pH POC ABG pO2 ABG pO2 ABG HCO3 ABG O2 Saturation ABG Base Excess ABG Oxyhemoglobin ABG Sodium ABG Chloride ABG Glucose Oxyhemoglobin Carboxyhemoglobin Sodium Potassium Chloride Carbon Dioxide BUN Creatinine Glucose POC Glucose 198 H Hemoglobin A1c Ferritin 378.7 H AST ALT Alkaline Phosphatase Lactate Dehydrogenase C-Reactive Protein Total Protein Albumin Arterial Blood Glucose Coronavirus (PCR) 05/09/21 05/09/21 05/09/21 05:20 06:04 12:53 WBC MCHC RDW Lymph % (Auto) Lymph # (Auto) Baso # (Auto) Seg Neutrophils % Seg Neuts % (Manual) Lymphocytes % (Manual) Seg Neutrophils # Seg Neutrophils # Man Lymphocytes # (Manual) D-Dimer ABG pH POC ABG pO2 ABG pO2 ABG HCO3 ABG O2 Saturation ABG Base Excess ABG Oxyhemoglobin ABG Sodium ABG Chloride ABG Glucose Oxyhemoglobin Carboxyhemoglobin Sodium Potassium Chloride Carbon Dioxide BUN Creatinine Glucose POC Glucose 159 H 180 H Hemoglobin A1c Ferritin AST ALT Alkaline Phosphatase Lactate Dehydrogenase 558 H C-Reactive Protein 2.40 H Total Protein Albumin Arterial Blood Glucose Coronavirus (PCR) 05/09/21 05/09/21 05/10/21 16:43 21:27 10:18 WBC MCHC RDW Lymph % (Auto) Lymph # (Auto) Baso # (Auto) Seg Neutrophils % Seg Neuts % (Manual) Lymphocytes % (Manual) Seg Neutrophils # Seg Neutrophils # Man Lymphocytes # (Manual) D-Dimer ABG pH POC ABG pO2 ABG pO2 ABG HCO3 ABG O2 Saturation ABG Base Excess ABG Oxyhemoglobin ABG Sodium ABG Chloride ABG Glucose Oxyhemoglobin Carboxyhemoglobin Sodium Potassium Chloride Carbon Dioxide BUN Creatinine Glucose POC Glucose 212 H 285 H 261 H Hemoglobin A1c Ferritin AST ALT Alkaline Phosphatase Lactate Dehydrogenase C-Reactive Protein Total Protein Albumin Arterial Blood Glucose Coronavirus (PCR) 05/10/21 05/10/21 05/11/21 17:58 18:02 00:29 WBC MCHC RDW Lymph % (Auto) Lymph # (Auto) Baso # (Auto) Seg Neutrophils % Seg Neuts % (Manual) Lymphocytes % (Manual) Seg Neutrophils # Seg Neutrophils # Man Lymphocytes # (Manual) D-Dimer ABG pH POC ABG pO2 ABG pO2 ABG HCO3 ABG O2 Saturation ABG Base Excess ABG Oxyhemoglobin ABG Sodium ABG Chloride ABG Glucose Oxyhemoglobin Carboxyhemoglobin Sodium Potassium Chloride Carbon Dioxide BUN Creatinine Glucose POC Glucose 213 H 179 H 149 H Hemoglobin A1c Ferritin AST ALT Alkaline Phosphatase Lactate Dehydrogenase C-Reactive Protein Total Protein Albumin Arterial Blood Glucose Coronavirus (PCR) 05/11/21 05/11/21 05/11/21 05:22 11:32 17:00 WBC 14.9 H MCHC RDW 18.9 H Lymph % (Auto) 4.9 L Lymph # (Auto) 0.7 L Baso # (Auto) 0.2 H Seg Neutrophils % Seg Neuts % (Manual) Lymphocytes % (Manual) Seg Neutrophils # 13.3 H Seg Neutrophils # Man Lymphocytes # (Manual) D-Dimer ABG pH POC ABG pO2 ABG pO2 ABG HCO3 ABG O2 Saturation ABG Base Excess ABG Oxyhemoglobin ABG Sodium ABG Chloride ABG Glucose Oxyhemoglobin Carboxyhemoglobin Sodium Potassium Chloride Carbon Dioxide BUN Creatinine Glucose POC Glucose 162 H 179 H Hemoglobin A1c Ferritin AST ALT Alkaline Phosphatase Lactate Dehydrogenase C-Reactive Protein Total Protein Albumin Arterial Blood Glucose Coronavirus (PCR) 05/11/21 05/11/21 05/11/21 17:00 17:33 22:03 WBC MCHC RDW Lymph % (Auto) Lymph # (Auto) Baso # (Auto) Seg Neutrophils % Seg Neuts % (Manual) Lymphocytes % (Manual) Seg Neutrophils # Seg Neutrophils # Man Lymphocytes # (Manual) D-Dimer ABG pH POC ABG pO2 ABG pO2 ABG HCO3 ABG O2 Saturation ABG Base Excess ABG Oxyhemoglobin ABG Sodium ABG Chloride ABG Glucose Oxyhemoglobin Carboxyhemoglobin Sodium 135 L Potassium Chloride 97.3 L Carbon Dioxide BUN 21 H Creatinine 0.3 L Glucose 133 H POC Glucose 140 H 282 H Hemoglobin A1c Ferritin AST ALT 60 H Alkaline Phosphatase Lactate Dehydrogenase C-Reactive Protein Total Protein Albumin 3.1 L Arterial Blood Glucose Coronavirus (PCR) 05/12/21 05/12/21 05/12/21 04:05 04:05 04:05 WBC MCHC RDW 18.4 H Lymph % (Auto) Lymph # (Auto) Baso # (Auto) Seg Neutrophils % Seg Neuts % (Manual) 94.0 H Lymphocytes % (Manual) 4.0 L Seg Neutrophils # Seg Neutrophils # Man Lymphocytes # (Manual) 0.3 L D-Dimer ABG pH POC ABG pO2 ABG pO2 ABG HCO3 ABG O2 Saturation ABG Base Excess ABG Oxyhemoglobin ABG Sodium ABG Chloride ABG Glucose Oxyhemoglobin Carboxyhemoglobin Sodium 136 L Potassium Chloride Carbon Dioxide BUN 18 H Creatinine 0.2 L Glucose 142 H POC Glucose Hemoglobin A1c Ferritin 350.7 H AST ALT Alkaline Phosphatase Lactate Dehydrogenase 546 H C-Reactive Protein Total Protein 6.1 L Albumin 3.0 L Arterial Blood Glucose Coronavirus (PCR) 05/12/21 05/12/21 05/12/21 05:11 11:17 16:27 WBC MCHC RDW Lymph % (Auto) Lymph # (Auto) Baso # (Auto) Seg Neutrophils % Seg Neuts % (Manual) Lymphocytes % (Manual) Seg Neutrophils # Seg Neutrophils # Man Lymphocytes # (Manual) D-Dimer ABG pH POC ABG pO2 ABG pO2 ABG HCO3 ABG O2 Saturation ABG Base Excess ABG Oxyhemoglobin ABG Sodium ABG Chloride ABG Glucose Oxyhemoglobin Carboxyhemoglobin Sodium Potassium Chloride Carbon Dioxide BUN Creatinine Glucose POC Glucose 152 H 190 H 261 H Hemoglobin A1c Ferritin AST ALT Alkaline Phosphatase Lactate Dehydrogenase C-Reactive Protein Total Protein Albumin Arterial Blood Glucose Coronavirus (PCR) 05/12/21 05/13/21 05/13/21 20:55 11:08 21:41 WBC MCHC RDW Lymph % (Auto) Lymph # (Auto) Baso # (Auto) Seg Neutrophils % Seg Neuts % (Manual) Lymphocytes % (Manual) Seg Neutrophils # Seg Neutrophils # Man Lymphocytes # (Manual) D-Dimer ABG pH POC ABG pO2 ABG pO2 ABG HCO3 ABG O2 Saturation ABG Base Excess ABG Oxyhemoglobin ABG Sodium ABG Chloride ABG Glucose Oxyhemoglobin Carboxyhemoglobin Sodium Potassium Chloride Carbon Dioxide BUN Creatinine Glucose POC Glucose 231 H 106 H 174 H Hemoglobin A1c Ferritin AST ALT Alkaline Phosphatase Lactate Dehydrogenase C-Reactive Protein Total Protein Albumin Arterial Blood Glucose Coronavirus (PCR) 05/14/21 05/14/21 05/14/21 00:53 02:23 06:06 WBC MCHC RDW Lymph % (Auto) Lymph # (Auto) Baso # (Auto) Seg Neutrophils % Seg Neuts % (Manual) Lymphocytes % (Manual) Seg Neutrophils # Seg Neutrophils # Man Lymphocytes # (Manual) D-Dimer ABG pH POC ABG pO2 ABG pO2 130.3 H ABG HCO3 30.6 H ABG O2 Saturation ABG Base Excess 4.9 H ABG Oxyhemoglobin ABG Sodium ABG Chloride ABG Glucose Oxyhemoglobin Carboxyhemoglobin Sodium Potassium Chloride Carbon Dioxide BUN Creatinine Glucose POC Glucose 229 H 119 H Hemoglobin A1c Ferritin AST ALT Alkaline Phosphatase Lactate Dehydrogenase C-Reactive Protein Total Protein Albumin Arterial Blood Glucose Coronavirus (PCR) 05/14/21 05/14/21 05/14/21 07:13 07:13 07:13 WBC MCHC RDW Lymph % (Auto) Lymph # (Auto) Baso # (Auto) Seg Neutrophils % Seg Neuts % (Manual) Lymphocytes % (Manual) Seg Neutrophils # Seg Neutrophils # Man Lymphocytes # (Manual) D-Dimer 712.80 H ABG pH POC ABG pO2 ABG pO2 ABG HCO3 ABG O2 Saturation ABG Base Excess ABG Oxyhemoglobin ABG Sodium ABG Chloride ABG Glucose Oxyhemoglobin Carboxyhemoglobin Sodium 133 L Potassium Chloride 95.5 L Carbon Dioxide 32 H BUN Creatinine 0.2 L Glucose 137 H POC Glucose Hemoglobin A1c Ferritin 283.5 H AST ALT 63 H Alkaline Phosphatase Lactate Dehydrogenase 563 H C-Reactive Protein Total Protein 6.1 L Albumin 3.0 L Arterial Blood Glucose Coronavirus (PCR) 05/14/21 05/14/21 05/14/21 12:21 15:33 21:50 WBC MCHC RDW Lymph % (Auto) Lymph # (Auto) Baso # (Auto) Seg Neutrophils % Seg Neuts % (Manual) Lymphocytes % (Manual) Seg Neutrophils # Seg Neutrophils # Man Lymphocytes # (Manual) D-Dimer ABG pH POC ABG pO2 ABG pO2 ABG HCO3 ABG O2 Saturation ABG Base Excess ABG Oxyhemoglobin ABG Sodium ABG Chloride ABG Glucose Oxyhemoglobin Carboxyhemoglobin Sodium Potassium Chloride Carbon Dioxide BUN Creatinine Glucose POC Glucose 143 H 204 H 202 H Hemoglobin A1c Ferritin AST ALT Alkaline Phosphatase Lactate Dehydrogenase C-Reactive Protein Total Protein Albumin Arterial Blood Glucose Coronavirus (PCR) 05/15/21 05/15/21 05/15/21 05:05 11:12 16:39 WBC MCHC RDW Lymph % (Auto) Lymph # (Auto) Baso # (Auto) Seg Neutrophils % Seg Neuts % (Manual) Lymphocytes % (Manual) Seg Neutrophils # Seg Neutrophils # Man Lymphocytes # (Manual) D-Dimer ABG pH POC ABG pO2 ABG pO2 ABG HCO3 ABG O2 Saturation ABG Base Excess ABG Oxyhemoglobin ABG Sodium ABG Chloride ABG Glucose Oxyhemoglobin Carboxyhemoglobin Sodium Potassium Chloride Carbon Dioxide BUN Creatinine Glucose POC Glucose 125 H 201 H 241 H Hemoglobin A1c Ferritin AST ALT Alkaline Phosphatase Lactate Dehydrogenase C-Reactive Protein Total Protein Albumin Arterial Blood Glucose Coronavirus (PCR) 05/15/21 05/16/21 05/16/21 21:31 05:04 10:40 WBC MCHC RDW Lymph % (Auto) Lymph # (Auto) Baso # (Auto) Seg Neutrophils % Seg Neuts % (Manual) Lymphocytes % (Manual) Seg Neutrophils # Seg Neutrophils # Man Lymphocytes # (Manual) D-Dimer ABG pH POC ABG pO2 ABG pO2 ABG HCO3 ABG O2 Saturation ABG Base Excess ABG Oxyhemoglobin ABG Sodium ABG Chloride ABG Glucose Oxyhemoglobin Carboxyhemoglobin Sodium Potassium Chloride Carbon Dioxide BUN Creatinine Glucose POC Glucose 234 H 123 H 231 H Hemoglobin A1c Ferritin AST ALT Alkaline Phosphatase Lactate Dehydrogenase C-Reactive Protein Total Protein Albumin Arterial Blood Glucose Coronavirus (PCR) 05/16/21 05/16/21 05/17/21 18:23 21:29 06:20 WBC MCHC RDW 18.8 H Lymph % (Auto) 10.2 L Lymph # (Auto) 0.8 L Baso # (Auto) Seg Neutrophils % 85.8 H Seg Neuts % (Manual) Lymphocytes % (Manual) Seg Neutrophils # Seg Neutrophils # Man Lymphocytes # (Manual) D-Dimer ABG pH POC ABG pO2 ABG pO2 ABG HCO3 ABG O2 Saturation ABG Base Excess ABG Oxyhemoglobin ABG Sodium ABG Chloride ABG Glucose Oxyhemoglobin Carboxyhemoglobin Sodium Potassium Chloride Carbon Dioxide BUN Creatinine Glucose POC Glucose 266 H 234 H Hemoglobin A1c Ferritin AST ALT Alkaline Phosphatase Lactate Dehydrogenase C-Reactive Protein Total Protein Albumin Arterial Blood Glucose Coronavirus (PCR) 05/17/21 05/17/21 05/17/21 06:20 11:06 16:36 WBC MCHC RDW Lymph % (Auto) Lymph # (Auto) Baso # (Auto) Seg Neutrophils % Seg Neuts % (Manual) Lymphocytes % (Manual) Seg Neutrophils # Seg Neutrophils # Man Lymphocytes # (Manual) D-Dimer ABG pH POC ABG pO2 ABG pO2 ABG HCO3 ABG O2 Saturation ABG Base Excess ABG Oxyhemoglobin ABG Sodium ABG Chloride ABG Glucose Oxyhemoglobin Carboxyhemoglobin Sodium Potassium Chloride Carbon Dioxide 33 H BUN Creatinine 0.2 L Glucose 101 H POC Glucose 209 H 180 H Hemoglobin A1c Ferritin AST ALT Alkaline Phosphatase Lactate Dehydrogenase C-Reactive Protein Total Protein Albumin Arterial Blood Glucose Coronavirus (PCR) 05/17/21 05/18/21 05/18/21 21:06 12:00 15:06 WBC MCHC RDW Lymph % (Auto) Lymph # (Auto) Baso # (Auto) Seg Neutrophils % Seg Neuts % (Manual) Lymphocytes % (Manual) Seg Neutrophils # Seg Neutrophils # Man Lymphocytes # (Manual) D-Dimer 874.02 H ABG pH POC ABG pO2 ABG pO2 ABG HCO3 ABG O2 Saturation ABG Base Excess ABG Oxyhemoglobin ABG Sodium ABG Chloride ABG Glucose Oxyhemoglobin Carboxyhemoglobin Sodium Potassium Chloride Carbon Dioxide BUN Creatinine Glucose POC Glucose 256 H 139 H Hemoglobin A1c Ferritin AST ALT Alkaline Phosphatase Lactate Dehydrogenase C-Reactive Protein Total Protein Albumin Arterial Blood Glucose Coronavirus (PCR) 05/18/21 05/18/21 05/18/21 15:06 15:06 16:08 WBC MCHC RDW Lymph % (Auto) Lymph # (Auto) Baso # (Auto) Seg Neutrophils % Seg Neuts % (Manual) Lymphocytes % (Manual) Seg Neutrophils # Seg Neutrophils # Man Lymphocytes # (Manual) D-Dimer ABG pH POC ABG pO2 ABG pO2 ABG HCO3 ABG O2 Saturation ABG Base Excess ABG Oxyhemoglobin ABG Sodium ABG Chloride ABG Glucose Oxyhemoglobin Carboxyhemoglobin Sodium Potassium Chloride Carbon Dioxide BUN Creatinine Glucose POC Glucose 178 H Hemoglobin A1c Ferritin 289.6 H AST ALT Alkaline Phosphatase Lactate Dehydrogenase 605 H C-Reactive Protein Total Protein Albumin Arterial Blood Glucose Coronavirus (PCR) 05/18/21 05/19/21 05/19/21 21:22 11:57 15:26 WBC MCHC RDW Lymph % (Auto) Lymph # (Auto) Baso # (Auto) Seg Neutrophils % Seg Neuts % (Manual) Lymphocytes % (Manual) Seg Neutrophils # Seg Neutrophils # Man Lymphocytes # (Manual) D-Dimer ABG pH POC ABG pO2 ABG pO2 ABG HCO3 ABG O2 Saturation ABG Base Excess ABG Oxyhemoglobin ABG Sodium ABG Chloride ABG Glucose Oxyhemoglobin Carboxyhemoglobin Sodium Potassium Chloride Carbon Dioxide BUN Creatinine Glucose POC Glucose 241 H 201 H 209 H Hemoglobin A1c Ferritin AST ALT Alkaline Phosphatase Lactate Dehydrogenase C-Reactive Protein Total Protein Albumin Arterial Blood Glucose Coronavirus (PCR) 05/19/21 05/20/21 05/20/21 20:59 07:38 08:01 WBC MCHC RDW 19.7 H Lymph % (Auto) 8.3 L Lymph # (Auto) 0.8 L Baso # (Auto) Seg Neutrophils % 88.6 H Seg Neuts % (Manual) Lymphocytes % (Manual) Seg Neutrophils # 8.4 H Seg Neutrophils # Man Lymphocytes # (Manual) D-Dimer ABG pH POC ABG pO2 ABG pO2 ABG HCO3 ABG O2 Saturation ABG Base Excess ABG Oxyhemoglobin ABG Sodium ABG Chloride ABG Glucose Oxyhemoglobin Carboxyhemoglobin Sodium Potassium Chloride Carbon Dioxide BUN Creatinine Glucose POC Glucose 226 H 130 H Hemoglobin A1c Ferritin AST ALT Alkaline Phosphatase Lactate Dehydrogenase C-Reactive Protein Total Protein Albumin Arterial Blood Glucose Coronavirus (PCR) 05/20/21 05/20/21 05/20/21 08:01 11:00 16:43 WBC MCHC RDW Lymph % (Auto) Lymph # (Auto) Baso # (Auto) Seg Neutrophils % Seg Neuts % (Manual) Lymphocytes % (Manual) Seg Neutrophils # Seg Neutrophils # Man Lymphocytes # (Manual) D-Dimer ABG pH POC ABG pO2 ABG pO2 ABG HCO3 ABG O2 Saturation ABG Base Excess ABG Oxyhemoglobin ABG Sodium ABG Chloride ABG Glucose Oxyhemoglobin Carboxyhemoglobin Sodium Potassium Chloride Carbon Dioxide BUN 18 H Creatinine 0.2 L Glucose 132 H POC Glucose 237 H 240 H Hemoglobin A1c Ferritin AST ALT Alkaline Phosphatase Lactate Dehydrogenase C-Reactive Protein Total Protein Albumin Arterial Blood Glucose Coronavirus (PCR) 05/20/21 05/21/21 05/21/21 21:21 07:35 11:32 WBC MCHC RDW Lymph % (Auto) Lymph # (Auto) Baso # (Auto) Seg Neutrophils % Seg Neuts % (Manual) Lymphocytes % (Manual) Seg Neutrophils # Seg Neutrophils # Man Lymphocytes # (Manual) D-Dimer ABG pH POC ABG pO2 ABG pO2 ABG HCO3 ABG O2 Saturation ABG Base Excess ABG Oxyhemoglobin ABG Sodium ABG Chloride ABG Glucose Oxyhemoglobin Carboxyhemoglobin Sodium Potassium Chloride Carbon Dioxide BUN Creatinine Glucose POC Glucose 241 H 162 H 171 H Hemoglobin A1c Ferritin AST ALT Alkaline Phosphatase Lactate Dehydrogenase C-Reactive Protein Total Protein Albumin Arterial Blood Glucose Coronavirus (PCR) 05/21/21 05/21/21 05/22/21 16:22 20:43 05:14 WBC MCHC RDW Lymph % (Auto) Lymph # (Auto) Baso # (Auto) Seg Neutrophils % Seg Neuts % (Manual) Lymphocytes % (Manual) Seg Neutrophils # Seg Neutrophils # Man Lymphocytes # (Manual) D-Dimer ABG pH POC ABG pO2 ABG pO2 ABG HCO3 ABG O2 Saturation ABG Base Excess ABG Oxyhemoglobin ABG Sodium ABG Chloride ABG Glucose Oxyhemoglobin Carboxyhemoglobin Sodium Potassium Chloride Carbon Dioxide BUN Creatinine Glucose POC Glucose 244 H 299 H 140 H Hemoglobin A1c Ferritin AST ALT Alkaline Phosphatase Lactate Dehydrogenase C-Reactive Protein Total Protein Albumin Arterial Blood Glucose Coronavirus (PCR) 05/22/21 05/22/21 05/22/21 08:45 11:54 16:15 WBC MCHC RDW Lymph % (Auto) Lymph # (Auto) Baso # (Auto) Seg Neutrophils % Seg Neuts % (Manual) Lymphocytes % (Manual) Seg Neutrophils # Seg Neutrophils # Man Lymphocytes # (Manual) D-Dimer ABG pH POC ABG pO2 ABG pO2 ABG HCO3 ABG O2 Saturation ABG Base Excess ABG Oxyhemoglobin ABG Sodium ABG Chloride ABG Glucose Oxyhemoglobin Carboxyhemoglobin Sodium Potassium Chloride Carbon Dioxide BUN Creatinine Glucose POC Glucose 133 H 265 H 221 H Hemoglobin A1c Ferritin AST ALT Alkaline Phosphatase Lactate Dehydrogenase C-Reactive Protein Total Protein Albumin Arterial Blood Glucose Coronavirus (PCR) 05/22/21 05/23/21 05/23/21 21:43 08:20 09:50 WBC MCHC RDW Lymph % (Auto) Lymph # (Auto) Baso # (Auto) Seg Neutrophils % Seg Neuts % (Manual) Lymphocytes % (Manual) Seg Neutrophils # Seg Neutrophils # Man Lymphocytes # (Manual) D-Dimer 910.38 H ABG pH POC ABG pO2 ABG pO2 ABG HCO3 ABG O2 Saturation ABG Base Excess ABG Oxyhemoglobin ABG Sodium ABG Chloride ABG Glucose Oxyhemoglobin Carboxyhemoglobin Sodium Potassium Chloride Carbon Dioxide BUN Creatinine Glucose POC Glucose 262 H 140 H Hemoglobin A1c Ferritin AST ALT Alkaline Phosphatase Lactate Dehydrogenase C-Reactive Protein Total Protein Albumin Arterial Blood Glucose Coronavirus (PCR) 05/23/21 05/23/21 05/23/21 09:50 09:50 10:52 WBC MCHC RDW Lymph % (Auto) Lymph # (Auto) Baso # (Auto) Seg Neutrophils % Seg Neuts % (Manual) Lymphocytes % (Manual) Seg Neutrophils # Seg Neutrophils # Man Lymphocytes # (Manual) D-Dimer ABG pH POC ABG pO2 ABG pO2 ABG HCO3 ABG O2 Saturation ABG Base Excess ABG Oxyhemoglobin ABG Sodium ABG Chloride ABG Glucose Oxyhemoglobin Carboxyhemoglobin Sodium Potassium Chloride Carbon Dioxide BUN Creatinine Glucose POC Glucose 241 H Hemoglobin A1c Ferritin 244.9 H AST ALT Alkaline Phosphatase Lactate Dehydrogenase 584 H C-Reactive Protein Total Protein Albumin Arterial Blood Glucose Coronavirus (PCR) 05/23/21 05/23/21 05/24/21 17:24 21:52 07:44 WBC MCHC RDW Lymph % (Auto) Lymph # (Auto) Baso # (Auto) Seg Neutrophils % Seg Neuts % (Manual) Lymphocytes % (Manual) Seg Neutrophils # Seg Neutrophils # Man Lymphocytes # (Manual) D-Dimer ABG pH POC ABG pO2 ABG pO2 ABG HCO3 ABG O2 Saturation ABG Base Excess ABG Oxyhemoglobin ABG Sodium ABG Chloride ABG Glucose Oxyhemoglobin Carboxyhemoglobin Sodium Potassium Chloride Carbon Dioxide BUN Creatinine Glucose POC Glucose 197 H 289 H 161 H Hemoglobin A1c Ferritin AST ALT Alkaline Phosphatase Lactate Dehydrogenase C-Reactive Protein Total Protein Albumin Arterial Blood Glucose Coronavirus (PCR) 05/24/21 05/24/21 05/24/21 11:17 17:51 21:26 WBC MCHC RDW Lymph % (Auto) Lymph # (Auto) Baso # (Auto) Seg Neutrophils % Seg Neuts % (Manual) Lymphocytes % (Manual) Seg Neutrophils # Seg Neutrophils # Man Lymphocytes # (Manual) D-Dimer ABG pH POC ABG pO2 ABG pO2 ABG HCO3 ABG O2 Saturation ABG Base Excess ABG Oxyhemoglobin ABG Sodium ABG Chloride ABG Glucose Oxyhemoglobin Carboxyhemoglobin Sodium Potassium Chloride Carbon Dioxide BUN Creatinine Glucose POC Glucose 308 H 175 H 198 H Hemoglobin A1c Ferritin AST ALT Alkaline Phosphatase Lactate Dehydrogenase C-Reactive Protein Total Protein Albumin Arterial Blood Glucose Coronavirus (PCR) 05/25/21 05/25/21 05/25/21 08:14 11:13 17:13 WBC MCHC RDW Lymph % (Auto) Lymph # (Auto) Baso # (Auto) Seg Neutrophils % Seg Neuts % (Manual) Lymphocytes % (Manual) Seg Neutrophils # Seg Neutrophils # Man Lymphocytes # (Manual) D-Dimer ABG pH POC ABG pO2 ABG pO2 ABG HCO3 ABG O2 Saturation ABG Base Excess ABG Oxyhemoglobin ABG Sodium ABG Chloride ABG Glucose Oxyhemoglobin Carboxyhemoglobin Sodium Potassium Chloride Carbon Dioxide BUN Creatinine Glucose POC Glucose 203 H 339 H 235 H Hemoglobin A1c Ferritin AST ALT Alkaline Phosphatase Lactate Dehydrogenase C-Reactive Protein Total Protein Albumin Arterial Blood Glucose Coronavirus (PCR) 05/25/21 05/26/21 05/26/21 21:03 07:33 11:19 WBC MCHC RDW Lymph % (Auto) Lymph # (Auto) Baso # (Auto) Seg Neutrophils % Seg Neuts % (Manual) Lymphocytes % (Manual) Seg Neutrophils # Seg Neutrophils # Man Lymphocytes # (Manual) D-Dimer ABG pH POC ABG pO2 ABG pO2 ABG HCO3 ABG O2 Saturation ABG Base Excess ABG Oxyhemoglobin ABG Sodium ABG Chloride ABG Glucose Oxyhemoglobin Carboxyhemoglobin Sodium Potassium Chloride Carbon Dioxide BUN Creatinine Glucose POC Glucose 263 H 156 H 288 H Hemoglobin A1c Ferritin AST ALT Alkaline Phosphatase Lactate Dehydrogenase C-Reactive Protein Total Protein Albumin Arterial Blood Glucose Coronavirus (PCR) 05/26/21 05/26/21 05/27/21 16:26 20:55 07:38 WBC MCHC RDW Lymph % (Auto) Lymph # (Auto) Baso # (Auto) Seg Neutrophils % Seg Neuts % (Manual) Lymphocytes % (Manual) Seg Neutrophils # Seg Neutrophils # Man Lymphocytes # (Manual) D-Dimer ABG pH POC ABG pO2 ABG pO2 ABG HCO3 ABG O2 Saturation ABG Base Excess ABG Oxyhemoglobin ABG Sodium ABG Chloride ABG Glucose Oxyhemoglobin Carboxyhemoglobin Sodium Potassium Chloride Carbon Dioxide BUN Creatinine Glucose POC Glucose 286 H 293 H 115 H Hemoglobin A1c Ferritin AST ALT Alkaline Phosphatase Lactate Dehydrogenase C-Reactive Protein Total Protein Albumin Arterial Blood Glucose Coronavirus (PCR) 05/27/21 05/27/21 05/27/21 11:46 15:58 21:02 WBC MCHC RDW Lymph % (Auto) Lymph # (Auto) Baso # (Auto) Seg Neutrophils % Seg Neuts % (Manual) Lymphocytes % (Manual) Seg Neutrophils # Seg Neutrophils # Man Lymphocytes # (Manual) D-Dimer ABG pH POC ABG pO2 ABG pO2 ABG HCO3 ABG O2 Saturation ABG Base Excess ABG Oxyhemoglobin ABG Sodium ABG Chloride ABG Glucose Oxyhemoglobin Carboxyhemoglobin Sodium Potassium Chloride Carbon Dioxide BUN Creatinine Glucose POC Glucose 260 H 318 H 246 H Hemoglobin A1c Ferritin AST ALT Alkaline Phosphatase Lactate Dehydrogenase C-Reactive Protein Total Protein Albumin Arterial Blood Glucose Coronavirus (PCR) 05/28/21 05/28/21 05/28/21 07:34 11:31 16:36 WBC MCHC RDW Lymph % (Auto) Lymph # (Auto) Baso # (Auto) Seg Neutrophils % Seg Neuts % (Manual) Lymphocytes % (Manual) Seg Neutrophils # Seg Neutrophils # Man Lymphocytes # (Manual) D-Dimer ABG pH POC ABG pO2 ABG pO2 ABG HCO3 ABG O2 Saturation ABG Base Excess ABG Oxyhemoglobin ABG Sodium ABG Chloride ABG Glucose Oxyhemoglobin Carboxyhemoglobin Sodium Potassium Chloride Carbon Dioxide BUN Creatinine Glucose POC Glucose 185 H 297 H 183 H Hemoglobin A1c Ferritin AST ALT Alkaline Phosphatase Lactate Dehydrogenase C-Reactive Protein Total Protein Albumin Arterial Blood Glucose Coronavirus (PCR) 05/28/21 05/29/21 05/29/21 21:19 07:34 11:19 WBC MCHC RDW Lymph % (Auto) Lymph # (Auto) Baso # (Auto) Seg Neutrophils % Seg Neuts % (Manual) Lymphocytes % (Manual) Seg Neutrophils # Seg Neutrophils # Man Lymphocytes # (Manual) D-Dimer ABG pH POC ABG pO2 ABG pO2 ABG HCO3 ABG O2 Saturation ABG Base Excess ABG Oxyhemoglobin ABG Sodium ABG Chloride ABG Glucose Oxyhemoglobin Carboxyhemoglobin Sodium Potassium Chloride Carbon Dioxide BUN Creatinine Glucose POC Glucose 274 H 139 H 293 H Hemoglobin A1c Ferritin AST ALT Alkaline Phosphatase Lactate Dehydrogenase C-Reactive Protein Total Protein Albumin Arterial Blood Glucose Coronavirus (PCR) 05/29/21 05/29/21 05/30/21 16:36 22:44 05:55 WBC MCHC RDW 21.3 H Lymph % (Auto) 8.0 L Lymph # (Auto) 0.6 L Baso # (Auto) Seg Neutrophils % 88.6 H Seg Neuts % (Manual) Lymphocytes % (Manual) Seg Neutrophils # Seg Neutrophils # Man Lymphocytes # (Manual) D-Dimer ABG pH POC ABG pO2 ABG pO2 ABG HCO3 ABG O2 Saturation ABG Base Excess ABG Oxyhemoglobin ABG Sodium ABG Chloride ABG Glucose Oxyhemoglobin Carboxyhemoglobin Sodium Potassium Chloride Carbon Dioxide BUN Creatinine Glucose POC Glucose 299 H 160 H Hemoglobin A1c Ferritin AST ALT Alkaline Phosphatase Lactate Dehydrogenase C-Reactive Protein Total Protein Albumin Arterial Blood Glucose Coronavirus (PCR) 05/30/21 05/30/21 05/30/21 05:55 08:04 11:13 WBC MCHC RDW Lymph % (Auto) Lymph # (Auto) Baso # (Auto) Seg Neutrophils % Seg Neuts % (Manual) Lymphocytes % (Manual) Seg Neutrophils # Seg Neutrophils # Man Lymphocytes # (Manual) D-Dimer ABG pH POC ABG pO2 ABG pO2 ABG HCO3 ABG O2 Saturation ABG Base Excess ABG Oxyhemoglobin ABG Sodium ABG Chloride ABG Glucose Oxyhemoglobin Carboxyhemoglobin Sodium Potassium Chloride Carbon Dioxide BUN 19 H Creatinine 0.2 L Glucose 209 H POC Glucose 157 H 275 H Hemoglobin A1c Ferritin AST ALT Alkaline Phosphatase Lactate Dehydrogenase C-Reactive Protein Total Protein Albumin Arterial Blood Glucose Coronavirus (PCR) 05/30/21 05/30/21 05/31/21 17:08 22:12 07:36 WBC MCHC RDW Lymph % (Auto) Lymph # (Auto) Baso # (Auto) Seg Neutrophils % Seg Neuts % (Manual) Lymphocytes % (Manual) Seg Neutrophils # Seg Neutrophils # Man Lymphocytes # (Manual) D-Dimer ABG pH POC ABG pO2 ABG pO2 ABG HCO3 ABG O2 Saturation ABG Base Excess ABG Oxyhemoglobin ABG Sodium ABG Chloride ABG Glucose Oxyhemoglobin Carboxyhemoglobin Sodium Potassium Chloride Carbon Dioxide BUN Creatinine Glucose POC Glucose 154 H 275 H 138 H Hemoglobin A1c Ferritin AST ALT Alkaline Phosphatase Lactate Dehydrogenase C-Reactive Protein Total Protein Albumin Arterial Blood Glucose Coronavirus (PCR) 05/31/21 05/31/21 05/31/21 11:17 16:55 21:25 WBC MCHC RDW Lymph % (Auto) Lymph # (Auto) Baso # (Auto) Seg Neutrophils % Seg Neuts % (Manual) Lymphocytes % (Manual) Seg Neutrophils # Seg Neutrophils # Man Lymphocytes # (Manual) D-Dimer ABG pH POC ABG pO2 ABG pO2 ABG HCO3 ABG O2 Saturation ABG Base Excess ABG Oxyhemoglobin ABG Sodium ABG Chloride ABG Glucose Oxyhemoglobin Carboxyhemoglobin Sodium Potassium Chloride Carbon Dioxide BUN Creatinine Glucose POC Glucose 258 H 215 H 318 H Hemoglobin A1c Ferritin AST ALT Alkaline Phosphatase Lactate Dehydrogenase C-Reactive Protein Total Protein Albumin Arterial Blood Glucose Coronavirus (PCR) 06/01/21 06/01/21 06/01/21 07:23 11:38 16:52 WBC MCHC RDW Lymph % (Auto) Lymph # (Auto) Baso # (Auto) Seg Neutrophils % Seg Neuts % (Manual) Lymphocytes % (Manual) Seg Neutrophils # Seg Neutrophils # Man Lymphocytes # (Manual) D-Dimer ABG pH POC ABG pO2 ABG pO2 ABG HCO3 ABG O2 Saturation ABG Base Excess ABG Oxyhemoglobin ABG Sodium ABG Chloride ABG Glucose Oxyhemoglobin Carboxyhemoglobin Sodium Potassium Chloride Carbon Dioxide BUN Creatinine Glucose POC Glucose 157 H 259 H 150 H Hemoglobin A1c Ferritin AST ALT Alkaline Phosphatase Lactate Dehydrogenase C-Reactive Protein Total Protein Albumin Arterial Blood Glucose Coronavirus (PCR) 06/01/21 06/02/21 06/02/21 23:16 05:34 05:34 WBC MCHC RDW 21.3 H Lymph % (Auto) 9.6 L Lymph # (Auto) 0.6 L Baso # (Auto) Seg Neutrophils % 86.2 H Seg Neuts % (Manual) Lymphocytes % (Manual) Seg Neutrophils # Seg Neutrophils # Man Lymphocytes # (Manual) D-Dimer ABG pH POC ABG pO2 ABG pO2 ABG HCO3 ABG O2 Saturation ABG Base Excess ABG Oxyhemoglobin ABG Sodium ABG Chloride ABG Glucose Oxyhemoglobin Carboxyhemoglobin Sodium 136 L Potassium Chloride Carbon Dioxide BUN Creatinine 0.2 L Glucose 186 H POC Glucose 247 H Hemoglobin A1c Ferritin AST ALT 69 H Alkaline Phosphatase Lactate Dehydrogenase C-Reactive Protein Total Protein 6.1 L Albumin 3.2 L Arterial Blood Glucose Coronavirus (PCR) 06/02/21 06/02/21 06/02/21 11:25 18:23 21:32 WBC MCHC RDW Lymph % (Auto) Lymph # (Auto) Baso # (Auto) Seg Neutrophils % Seg Neuts % (Manual) Lymphocytes % (Manual) Seg Neutrophils # Seg Neutrophils # Man Lymphocytes # (Manual) D-Dimer ABG pH POC ABG pO2 ABG pO2 ABG HCO3 ABG O2 Saturation ABG Base Excess ABG Oxyhemoglobin ABG Sodium ABG Chloride ABG Glucose Oxyhemoglobin Carboxyhemoglobin Sodium Potassium Chloride Carbon Dioxide BUN Creatinine Glucose POC Glucose 157 H 299 H 246 H Hemoglobin A1c Ferritin AST ALT Alkaline Phosphatase Lactate Dehydrogenase C-Reactive Protein Total Protein Albumin Arterial Blood Glucose Coronavirus (PCR) 06/03/21 06/03/21 06/03/21 08:12 12:21 17:31 WBC MCHC RDW Lymph % (Auto) Lymph # (Auto) Baso # (Auto) Seg Neutrophils % Seg Neuts % (Manual) Lymphocytes % (Manual) Seg Neutrophils # Seg Neutrophils # Man Lymphocytes # (Manual) D-Dimer ABG pH POC ABG pO2 ABG pO2 ABG HCO3 ABG O2 Saturation ABG Base Excess ABG Oxyhemoglobin ABG Sodium ABG Chloride ABG Glucose Oxyhemoglobin Carboxyhemoglobin Sodium Potassium Chloride Carbon Dioxide BUN Creatinine Glucose POC Glucose 153 H 302 H 252 H Hemoglobin A1c Ferritin AST ALT Alkaline Phosphatase Lactate Dehydrogenase C-Reactive Protein Total Protein Albumin Arterial Blood Glucose Coronavirus (PCR) 06/03/21 06/04/21 06/04/21 22:08 11:12 16:01 WBC MCHC RDW Lymph % (Auto) Lymph # (Auto) Baso # (Auto) Seg Neutrophils % Seg Neuts % (Manual) Lymphocytes % (Manual) Seg Neutrophils # Seg Neutrophils # Man Lymphocytes # (Manual) D-Dimer ABG pH POC ABG pO2 ABG pO2 ABG HCO3 ABG O2 Saturation ABG Base Excess ABG Oxyhemoglobin ABG Sodium ABG Chloride ABG Glucose Oxyhemoglobin Carboxyhemoglobin Sodium Potassium Chloride Carbon Dioxide BUN Creatinine Glucose POC Glucose 224 H 259 H 238 H Hemoglobin A1c Ferritin AST ALT Alkaline Phosphatase Lactate Dehydrogenase C-Reactive Protein Total Protein Albumin Arterial Blood Glucose Coronavirus (PCR) 06/04/21 06/05/21 06/05/21 21:26 05:26 05:26 WBC MCHC RDW Lymph % (Auto) Lymph # (Auto) Baso # (Auto) Seg Neutrophils % Seg Neuts % (Manual) Lymphocytes % (Manual) Seg Neutrophils # Seg Neutrophils # Man Lymphocytes # (Manual) D-Dimer 488.49 H ABG pH POC ABG pO2 ABG pO2 ABG HCO3 ABG O2 Saturation ABG Base Excess ABG Oxyhemoglobin ABG Sodium ABG Chloride ABG Glucose Oxyhemoglobin Carboxyhemoglobin Sodium Potassium Chloride Carbon Dioxide BUN Creatinine 0.2 L Glucose 198 H POC Glucose 257 H Hemoglobin A1c Ferritin AST ALT Alkaline Phosphatase Lactate Dehydrogenase 475 H C-Reactive Protein Total Protein Albumin Arterial Blood Glucose Coronavirus (PCR) 06/05/21 06/05/21 06/05/21 07:20 08:30 11:00 WBC MCHC RDW Lymph % (Auto) Lymph # (Auto) Baso # (Auto) Seg Neutrophils % Seg Neuts % (Manual) Lymphocytes % (Manual) Seg Neutrophils # Seg Neutrophils # Man Lymphocytes # (Manual) D-Dimer ABG pH POC ABG pO2 ABG pO2 ABG HCO3 ABG O2 Saturation ABG Base Excess ABG Oxyhemoglobin ABG Sodium ABG Chloride ABG Glucose Oxyhemoglobin Carboxyhemoglobin Sodium Potassium Chloride Carbon Dioxide BUN Creatinine Glucose POC Glucose 146 H 246 H Hemoglobin A1c Ferritin AST ALT Alkaline Phosphatase Lactate Dehydrogenase C-Reactive Protein Total Protein Albumin Arterial Blood Glucose Coronavirus (PCR) Positive A 06/05/21 06/05/21 06/06/21 16:50 22:30 07:57 WBC MCHC RDW Lymph % (Auto) Lymph # (Auto) Baso # (Auto) Seg Neutrophils % Seg Neuts % (Manual) Lymphocytes % (Manual) Seg Neutrophils # Seg Neutrophils # Man Lymphocytes # (Manual) D-Dimer ABG pH POC ABG pO2 ABG pO2 ABG HCO3 ABG O2 Saturation ABG Base Excess ABG Oxyhemoglobin ABG Sodium ABG Chloride ABG Glucose Oxyhemoglobin Carboxyhemoglobin Sodium Potassium Chloride Carbon Dioxide BUN Creatinine Glucose POC Glucose 240 H 174 H 120 H Hemoglobin A1c Ferritin AST ALT Alkaline Phosphatase Lactate Dehydrogenase C-Reactive Protein Total Protein Albumin Arterial Blood Glucose Coronavirus (PCR) 06/06/21 06/06/21 06/06/21 11:14 16:50 21:11 WBC MCHC RDW Lymph % (Auto) Lymph # (Auto) Baso # (Auto) Seg Neutrophils % Seg Neuts % (Manual) Lymphocytes % (Manual) Seg Neutrophils # Seg Neutrophils # Man Lymphocytes # (Manual) D-Dimer ABG pH POC ABG pO2 ABG pO2 ABG HCO3 ABG O2 Saturation ABG Base Excess ABG Oxyhemoglobin ABG Sodium ABG Chloride ABG Glucose Oxyhemoglobin Carboxyhemoglobin Sodium Potassium Chloride Carbon Dioxide BUN Creatinine Glucose POC Glucose 267 H 218 H 124 H Hemoglobin A1c Ferritin AST ALT Alkaline Phosphatase Lactate Dehydrogenase C-Reactive Protein Total Protein Albumin Arterial Blood Glucose Coronavirus (PCR) 06/07/21 06/07/21 06/08/21 11:58 15:59 07:59 WBC MCHC RDW Lymph % (Auto) Lymph # (Auto) Baso # (Auto) Seg Neutrophils % Seg Neuts % (Manual) Lymphocytes % (Manual) Seg Neutrophils # Seg Neutrophils # Man Lymphocytes # (Manual) D-Dimer ABG pH POC ABG pO2 ABG pO2 ABG HCO3 ABG O2 Saturation ABG Base Excess ABG Oxyhemoglobin ABG Sodium ABG Chloride ABG Glucose Oxyhemoglobin Carboxyhemoglobin Sodium Potassium Chloride Carbon Dioxide BUN Creatinine Glucose POC Glucose 219 H 208 H 192 H Hemoglobin A1c Ferritin AST ALT Alkaline Phosphatase Lactate Dehydrogenase C-Reactive Protein Total Protein Albumin Arterial Blood Glucose Coronavirus (PCR) 06/08/21 06/08/21 06/09/21 11:26 23:28 07:33 WBC MCHC RDW Lymph % (Auto) Lymph # (Auto) Baso # (Auto) Seg Neutrophils % Seg Neuts % (Manual) Lymphocytes % (Manual) Seg Neutrophils # Seg Neutrophils # Man Lymphocytes # (Manual) D-Dimer ABG pH POC ABG pO2 ABG pO2 ABG HCO3 ABG O2 Saturation ABG Base Excess ABG Oxyhemoglobin ABG Sodium ABG Chloride ABG Glucose Oxyhemoglobin Carboxyhemoglobin Sodium Potassium Chloride Carbon Dioxide BUN Creatinine Glucose POC Glucose 307 H 138 H 145 H Hemoglobin A1c Ferritin AST ALT Alkaline Phosphatase Lactate Dehydrogenase C-Reactive Protein Total Protein Albumin Arterial Blood Glucose Coronavirus (PCR) 06/09/21 06/09/21 06/09/21 11:01 15:47 21:43 WBC MCHC RDW Lymph % (Auto) Lymph # (Auto) Baso # (Auto) Seg Neutrophils % Seg Neuts % (Manual) Lymphocytes % (Manual) Seg Neutrophils # Seg Neutrophils # Man Lymphocytes # (Manual) D-Dimer ABG pH POC ABG pO2 ABG pO2 ABG HCO3 ABG O2 Saturation ABG Base Excess ABG Oxyhemoglobin ABG Sodium ABG Chloride ABG Glucose Oxyhemoglobin Carboxyhemoglobin Sodium Potassium Chloride Carbon Dioxide BUN Creatinine Glucose POC Glucose 266 H 305 H 223 H Hemoglobin A1c Ferritin AST ALT Alkaline Phosphatase Lactate Dehydrogenase C-Reactive Protein Total Protein Albumin Arterial Blood Glucose Coronavirus (PCR) 06/10/21 06/10/21 06/10/21 08:27 12:10 17:45 WBC MCHC RDW Lymph % (Auto) Lymph # (Auto) Baso # (Auto) Seg Neutrophils % Seg Neuts % (Manual) Lymphocytes % (Manual) Seg Neutrophils # Seg Neutrophils # Man Lymphocytes # (Manual) D-Dimer ABG pH POC ABG pO2 ABG pO2 ABG HCO3 ABG O2 Saturation ABG Base Excess ABG Oxyhemoglobin ABG Sodium ABG Chloride ABG Glucose Oxyhemoglobin Carboxyhemoglobin Sodium Potassium Chloride Carbon Dioxide BUN Creatinine Glucose POC Glucose 174 H 306 H 210 H Hemoglobin A1c Ferritin AST ALT Alkaline Phosphatase Lactate Dehydrogenase C-Reactive Protein Total Protein Albumin Arterial Blood Glucose Coronavirus (PCR) 06/10/21 06/11/21 06/11/21 21:45 09:38 09:38 WBC MCHC RDW 20.9 H Lymph % (Auto) Lymph # (Auto) Baso # (Auto) Seg Neutrophils % Seg Neuts % (Manual) Lymphocytes % (Manual) Seg Neutrophils # Seg Neutrophils # Man Lymphocytes # (Manual) D-Dimer ABG pH POC ABG pO2 ABG pO2 ABG HCO3 ABG O2 Saturation ABG Base Excess ABG Oxyhemoglobin ABG Sodium ABG Chloride ABG Glucose Oxyhemoglobin Carboxyhemoglobin Sodium 135 L Potassium Chloride 90.8 L Carbon Dioxide 36 H BUN 29 H Creatinine 0.2 L Glucose 258 H POC Glucose 262 H Hemoglobin A1c Ferritin AST ALT Alkaline Phosphatase Lactate Dehydrogenase C-Reactive Protein Total Protein Albumin Arterial Blood Glucose Coronavirus (PCR) 06/11/21 06/11/21 06/11/21 11:20 15:49 22:57 WBC MCHC RDW Lymph % (Auto) Lymph # (Auto) Baso # (Auto) Seg Neutrophils % Seg Neuts % (Manual) Lymphocytes % (Manual) Seg Neutrophils # Seg Neutrophils # Man Lymphocytes # (Manual) D-Dimer ABG pH POC ABG pO2 ABG pO2 ABG HCO3 ABG O2 Saturation ABG Base Excess ABG Oxyhemoglobin ABG Sodium ABG Chloride ABG Glucose Oxyhemoglobin Carboxyhemoglobin Sodium Potassium Chloride Carbon Dioxide BUN Creatinine Glucose POC Glucose 269 H 206 H 211 H Hemoglobin A1c Ferritin AST ALT Alkaline Phosphatase Lactate Dehydrogenase C-Reactive Protein Total Protein Albumin Arterial Blood Glucose Coronavirus (PCR) 06/12/21 06/12/21 06/12/21 08:07 11:24 18:08 WBC MCHC RDW Lymph % (Auto) Lymph # (Auto) Baso # (Auto) Seg Neutrophils % Seg Neuts % (Manual) Lymphocytes % (Manual) Seg Neutrophils # Seg Neutrophils # Man Lymphocytes # (Manual) D-Dimer ABG pH POC ABG pO2 ABG pO2 ABG HCO3 ABG O2 Saturation ABG Base Excess ABG Oxyhemoglobin ABG Sodium ABG Chloride ABG Glucose Oxyhemoglobin Carboxyhemoglobin Sodium Potassium Chloride Carbon Dioxide BUN Creatinine Glucose POC Glucose 149 H 270 H 166 H Hemoglobin A1c Ferritin AST ALT Alkaline Phosphatase Lactate Dehydrogenase C-Reactive Protein Total Protein Albumin Arterial Blood Glucose Coronavirus (PCR) 06/12/21 06/13/21 06/13/21 20:22 07:50 11:18 WBC MCHC RDW Lymph % (Auto) Lymph # (Auto) Baso # (Auto) Seg Neutrophils % Seg Neuts % (Manual) Lymphocytes % (Manual) Seg Neutrophils # Seg Neutrophils # Man Lymphocytes # (Manual) D-Dimer ABG pH POC ABG pO2 ABG pO2 ABG HCO3 ABG O2 Saturation ABG Base Excess ABG Oxyhemoglobin ABG Sodium ABG Chloride ABG Glucose Oxyhemoglobin Carboxyhemoglobin Sodium Potassium Chloride Carbon Dioxide BUN Creatinine Glucose POC Glucose 155 H 163 H 293 H Hemoglobin A1c Ferritin AST ALT Alkaline Phosphatase Lactate Dehydrogenase C-Reactive Protein Total Protein Albumin Arterial Blood Glucose Coronavirus (PCR) 06/13/21 06/13/21 06/14/21 16:41 21:00 07:41 WBC MCHC RDW Lymph % (Auto) Lymph # (Auto) Baso # (Auto) Seg Neutrophils % Seg Neuts % (Manual) Lymphocytes % (Manual) Seg Neutrophils # Seg Neutrophils # Man Lymphocytes # (Manual) D-Dimer ABG pH POC ABG pO2 ABG pO2 ABG HCO3 ABG O2 Saturation ABG Base Excess ABG Oxyhemoglobin ABG Sodium ABG Chloride ABG Glucose Oxyhemoglobin Carboxyhemoglobin Sodium Potassium Chloride Carbon Dioxide BUN Creatinine Glucose POC Glucose 232 H 183 H 52 L Hemoglobin A1c Ferritin AST ALT Alkaline Phosphatase Lactate Dehydrogenase C-Reactive Protein Total Protein Albumin Arterial Blood Glucose Coronavirus (PCR)
--- NOTE | 2021-06-14 16:30 | Progress Note ---
Assessment and Plan Assessment and Plan -Acute hypoxic resp failure due to covid19 -S/p BiPAP, Tolerated well now only on nasal cannula. HFNC o2 35 liters --Attempt to titrate more aggressively led to patient increasing high flow O2 back to 30%. -See RT notes for titration -Albuterol as needed -Pulmonary hygiene -Pulmonology following Oral prednisone 60 mg initiated --covid19 pna; --sepsis; -zinc/vitC/D -methylpred 125 mg every 8; wean as appropriate -Infectious disease consulted, -S/p Actemra and remdesivir -Trend temperature and WBC curve -Follow culture data --Oral candidiasis Nystatin solution ordered. Resolving. -- hyponatremia Resolved Sodium is 142 -- coagulopathy of covid; on AC -Subcu heparin -Trend CBC-no need for transfusion. -Transfuse for hemoglobin less than 7 -Bilateral lower extremity Doppler ultrasounds negative for DVT ; no CTA or VQ scan to rule out PE -- hyperglycemia; [id number]-Escka stable at this time. -Lantus HS -SSI AC/HS -Avoid hypoglycemia -- risk for protein gisella malnutrition given inc metabolic demand with resp insufficiency -TPN earlier in hospital admission due to BiPAP however now patient is tolerating p.o. -Patient on a GI soft diet with aspiration precautions -Nutrition following -Bowel regimen: Colace, senna, MiraLAX -PPI --Anxiety Likely due to severe hypoxia Has shown some signs of improvement over the past 24 hours able to wean oxygen some. -Follows commands and RAY -PRN pain and anxiety meds -Patient is Chinese-speaking but understands Serbian Added Ambien for insomnia. Anxiety resolving. add klonipin for anxiety --viral conjunctivitis right eye: Resolved would like drops for her eyes again. States eyes are dry. -Right eye- s/p 5 d course of cipro drops. suspect viral conjunctivitis. lubricating eye drops. supportive management. Erythema has resolved --Septic shock- resolved -S/p pressors now discontinued -MAP goal 65 -Pressure monitor per protocol Subjective Date of service: 06/14/21 Principal diagnosis: Covid-19 Interval history: 50 YO Female with GERD, Obesity, HLD presents to ED for evaluation. Patient reports "I cannot breathe". Patient states that she has experienced subjective fever, shortness of breath, malaise, body aches, dry cough, and shortness of breath over the past 1 week with progressively worsening symptoms over the same timeframe. EMS was notified and upon arrival the patient was found to be in distress and subsequent transported to [facility] for further care and evaluation of the aforementioned symptoms. The patient was seen and evaluated in the emergency department. All lab and imaging studies reviewed. Patient found to have a pulse oximetry of 86% with exertion on room air which is consistent with acute hypoxemic respiratory failure. Patient with chest x-ray which revealed bilateral pneumonia. Patient admitted to medical floor and initiated him on pneumonia protocol as well as coronavirus protocol. Patient knowledges fever but denies chills, chest pain, palpitation, skin rash, recent ill contacts, or known exposure to COVID-19. Prior admission on 01/21/2017 reviewed. All medica tion listed at time of admission has been reconciled. Patient is unvaccinated for coronavirus infection. Hospital course to date: 04/17: Patient seen and examined, still uncomfortable with Hypoxic respiratory failure and on oxygen, will continue to steroids therapy, start patient on Remdesivir, ID consulted, Pulmonary consult placed. 04/18: Patient seen and examined, she is currently being changed to High flow NC due to worsening HYPOXIA, will transfer to IMCU, Pulmonary and ID following. Will also give a dose of Lasix today. Monitor Inflammatory markers. 04/19: Patient seen and examined still on high flow due to hypoxia. Appears a bit more comfortable today than yesterday. Cough has decreased in frequency. We will continue high dose Dexameathasone to complete 10 days. continue on Remdesivir 200 mg IV q day x 1 followed by 100 mg IV q day x 4 days -Obtain q48-72h inflammatory markers - ferritin, Ddimer, CRP, LDH Will also give lasix daily for the next 3 days and monitor renal function. Family updated. Continue prone positioning as tolerated 04/20: Patient has some desaturation episodes yesterday was placed on BiPAP. Discussed with ICU team for bed availability for patient to be transferred up. Continue prone position as tolerated. 04/21: Patient remains with profound hypoxia secondary to COVID pneumonia. -Continue steroids -Continue remedesir -S/P Actmera 04/22: Patient remains on steroids and remdesivir. ABG shows persistent hypoxia. We will continue current management additional trial of Lasix for the next few days to see if any improvement. Monitor inflammatory markers as needed. Prognosis is guarded remains on high flow 04/23; patient was treated with remdesivir and Actemra. Continue steroid. Patient's prognosis is guarded. 04/24; patient is on steroid. Patient is currently on BiPAP. Prognosis is guarded. Pulmonary is following. Patient was given Lasix and Ativan. 04/25; continue steroid. Patient was on 40 L of high flow oxygen with saturation was 88%. Pulmonary is following. Prognosis is guarded. Patient was given lasix and ativan. 04/26; patient is on BiPAP and Precedex. Prognosis is guarded. 04/27; patient is on BiPAP and Precedex. Patient will finish steroid today and will start on Solu-Medrol tomorrow. Prognosis is guarded. Blood pressure is better today. Hold Lasix. 04/28 patient is on 100 Fio2 via BIPAP. moderately dyspneic, pulmonary note reviewed, lab results reviewed 04/29 no acute events- see systems review above 04/30 no acute events overnight - on airvo today- TPN started -see systems review above 05-01 no acute events overnight- tolerating airvo- see systems review above - no acute events overnight; tolerating airvo this AM- see systems review above 05/03: Patient has shown remarkable improvement, weaned down to 3 L and satting 95%. Will attempt to walk test today in anticipation for discharge tomorrow. Discussed with PT team to walk the patient today also. 05/04: Patient appears to have had a decline he was down to 3 L satting 95% with anticipation for discharge today but desatted down to 85% on room air and only 88% on 5 L he is now back at 8 L. I encourage incentive spirometer. While he is on Xarelto and has completed the severe steroids which was subsequently changed to Solu-Medrol I will go ahead and order a CTA to make sure that there is not a failure of Xarelto. We will continue to wean as tolerated discussed with nursing staff at bedside. 05/05/21 Patient is on 40 L of oxygen with 80% FiO2. Patient is encouraged to turn to the side more frequently. Patient is denied any shortness of breath and coughing. No other complaints. Follow the CT scan of the chest. Status post remdesivir and Actemra.Solu-Medrol 40 mg IV every 8 hours. Continue current management. Pulmonary follow-up. 05/06: Patient remains on high flow nasal cannula but states that she feels slightly better with the help of translation from her cousin Aspen. Patient is still awaiting a bed on the floor. Patient diet is being tolerated now so we will stop TPN will be stopped tonight. 05/07/2021: Patient remains on 40 L/min oxygen at 90% FiO2. Attempt made for CTA chest to rule out pulmonary embolism however patient desatted while at CT. Study was aborted, will reattempt again tomorrow. will follow along with pulm recs. Discussed/updated patient and patient's daughter over phone regarding any active clinical issues. Patient only complaint is oral pain from oral candidiasis noted on exam. Nystatin oral solution ordered. Daughter also voiced concern over patient eye drops which she stated that patient needed to restart from home. However she did not remember name of drops. advised daughter to call our hospital with drop name and dosing and we will restart. 05/08/2021: Started anticoagulation with Lovenox yesterday. Awaiting CTA chest completion. Will attempt to de-escalate oxygen as patient tolerates 05/09/2021: Continues to have high O2 requirements. CTA chest aborted due to patient not being able to tolerate transport to and from scanner. Will follow pulmonology recommendations 05/10/2021: Steroids increased yesterday to 125 mg every 8 hour. Continuing full dose anticoagulation. Respiratory status still remains challenging as it is difficult to wean patient off of hifnc. Minimal improvement compared to last few days. Plan to prone patient today. Otherwise: Some improvement in eye symptoms compared to yesterday. Will order more lubricating eye drops 05/11/2021: Still requires high flow nasal cannula, FiO2 de-escalated to 85%.. Encourage continued proning, patient care team aware. Continue with steroids, anticoagulation, antibiotics. 05/12/2021: High flow nasal cannula remains at flow rate 35 L/min and FiO2 of 85%. Patient appears more comfortable today. Started insulin regimen due to hyperglycemia likely multifactorial in the setting of underlying diabetes and high-dose steroids. Continue to encourage patient to prone. Discussed with pulmonology regarding patient underlying anxiety. We both agreed that low-dose BuSpar might be beneficial for the patient. 05/13/2020: hypoxic resp distress overnight. cpap ordered. Current settings on encounter 30/04 at 100% FIO2. Advised care (RN, RT, PT) team to continue to aggr essively work with patient as far as proning. Patient can sit at side of bed and rest on bedside tray w/ pillow in "Rodin's thinker pose". continue high dose steroids, PRN ativan for anxiety, Buspar noted in pulm recs. 05/14/21: Patient remains on 100% O2 with high flow. Follow inflammatory markers , wean FiO2 as tolerated, guarded prognosis 05/15: Patient on 40 L high flow O2 today-requiring nonrebreather intermittently, continue to follow inflammatory markers and wean off O2 as tolerated, guarded prognosis. 05/16:-Remains on high flow O2 along with nonrebreather, continue to follow inflammatory markers and wean off O2 as tolerated, pulmonary and ID following. Guarded prognosis, patient requiring higher concentration of O2 and unable to wean off. 05/17: Persistently recurring higher concentration O2. Patient on both high flow oxygen and nonrebreather. Poor prognosis, continue to follow inflammatory markers. ID and pulmonary care following. Updated family. 05/18: Patient remains on nonrebreather and high flow O2, Prone if possible. Wean FiO2 for sats >88%. Prognosis is very very guarded. Follow inflammatory markers. 05/19: Wean FiO2 for sats >88%. Patient remains on nonrebreather and high flow O2, Prone if possible. Follow inflammatory markers. Prognosis is very very guarded. 05/20: Patient remains on high flow O2 along with nonrebreather. Guarded prognosis. Wean off O2 as tolerated. Pulmonary and ID following 05/21: Clinically very poor prognosis. Patient continuously requiring high flow O2 along with nonrebreather. Updated daughter with all clinical details. Follow BMP, follow inflammatory markers. Wean off O2 as tolerated. 05/22: Remains on nonrebreather and high flow O2. Continue to monitor clinically, guarded prognosis. Continue to follow inflammatory markers. ID and pulmonary also following. 06/11/21: Remains on high flow O2, poor prognosis 06/12/2021 On high flow nasal cannula oxygen Steroids will be tapered Prone position 06/13/21:Changed to prednisone 60 daily [id number]/1/21. Prone if able and wean for sats >88% 06/14/21: Continue oral steroid therapy. Weaning of steroids to continue. Proning as tolerated Objective - Constitutional Vitals: Vital Signs - 12hr 06/14/21 06/14/21 06/14/21 04:51 08:00 10:00 Temperature 98.2 F Pulse Rate 77 Respiratory 18 Rate Blood Pressure 103/55 O2 Sat by Pulse 94 93 92 Oximetry 06/14/21 11:46 Temperature 97.9 F Pulse Rate 94 H Respiratory 26 H Rate Blood Pressure 113/71 O2 Sat by Pulse 93 Oximetry General appearance: Present: mild distress, well-nourished - EENT Eyes: PERRL, EOM intact ENT: hearing intact, clear oral mucosa Ears: bilateral: normal - Neck Neck: supple, normal ROM - Respiratory Respiratory effort: normal Respiratory: bilateral: CTA - Breasts Breasts: normal - Cardiovascular Heart rate: 98 Rhythm: regular Heart Sounds: Present: S1 & S2. Absent: gallop, rub Extremities: pulses intact, No edema, normal color, Full ROM - Gastrointestinal General gastrointestinal: Present: soft, non-tender, non-distended, normal bowel sounds - Genitourinary Female genitourinary: normal - Integumentary Integumentary: clear, warm, dry - Musculoskeletal Musculoskeletal: 1, strength equal bilaterally - Neurologic Neurologic: moves all extremities - Psychiatric Psychiatric: memory intact, appropriate mood/affect, intact judgment & insight - Labs CBC & Chem 7: 06/11/21 09:38 06/11/21 09:38 Labs: Abnormal lab results 06/13/21 06/13/21 06/14/21 Range/Units 16:41 21:00 07:41 POC Glucose 232 H 183 H 52 L (70-105) mg/dL 06/14/21 Range/Units 11:44 POC Glucose 205 H (70-105) mg/dL
[2021-06-14] MEDS: ACETAMINOPHEN 325 MG TAB PO PRN ×2 (18:00→23:04)
[2021-06-14] MEDS: ENOXAPARIN 40 MG/0.4 ML INJ SUB-Q SCH (22:55)
[2021-06-14] MEDS: SENNOSIDES 8.6 MG TAB PO SCH (22:55)
[2021-06-14] MEDS: ZOLPIDEM 5 MG TAB PO PRN (23:10)
[2021-06-15] MEDS: INSULIN LISPRO 100 UNIT/ML SUB-Q SCH ×4 (07:30→22:21)
[2021-06-15 08:27] LABS: Basophils % (Auto) 0.5 % (0.0-1.8); Eosinophils # (Auto) 0.1 K/mm3 (0.0-0.4); Eosinophils % (Auto) 0.7 % (0.0-4.3); Hematocrit 40.4 % (30.3-42.9); Hemoglobin 13.9 gm/dl (10.1-14.3); Lymphocytes # (Auto) 2.1 K/mm3 (1.2-5.4); Lymphocytes % (Auto) 25.6 % (13.4-35.0); Mean Corpuscular HGB Conc 35 % (30-34); Mean Corpuscular Volume 94 fl (79-97); Monocytes # (Auto) 0.5 K/mm3 (0.0-0.8); Monocytes % (Auto) 5.7 % (0.0-7.3); Platelet Count 214 K/mm3 (140-440); Red Blood Count 4.29 M/mm3 (3.65-5.03)
[2021-06-15 08:31] LABS: Red Cell Distribution Width 20.3 % (13.2-15.2)
[2021-06-15 08:43] LABS: Blood Urea Nitrogen 23 mg/dL (7-17); Calcium 9.2 mg/dL (8.4-10.2); Hemolysis Index 4
[2021-06-15 08:44] LABS: BUN/Creatinine Ratio 115
[2021-06-15] MEDS: INSULIN GLARGINE 100 UNITS/ML SUB-Q SCH ×2 (10:00→22:22)
[2021-06-15] MEDS: ASCORBIC ACID 500 MG TAB PO SCH (10:44)
[2021-06-15] MEDS: FUROSEMIDE 40 MG/4 ML INJ IV SCH (10:44)
[2021-06-15] MEDS: ZINC SULFATE 220 MG CAP PO SCH ×2 (10:44→22:19)
[2021-06-15] MEDS: DOCUSATE SODIUM 100 MG CAP PO SCH ×2 (10:44→22:19)
[2021-06-15] MEDS: predniSONE 20 MG TAB PO SCH (10:44)
[2021-06-15] MEDS: CHOLECALCIFEROL (VIT D3) 1000 UNIT (25 mcg) TAB PO SCH (10:45)
--- NOTE | 2021-06-15 14:27 | Progress Note ---
Assessment and Plan 50-year-old female past medical history obesity, GERD, hyperlipidemia brought to the hospital due to shortness of breath, fevers, malaise, typical Covid symptoms for approximate 1 week prior to admission and was progressively worse since on set. She is found to have saturations of 86% on presentation. Afebrile since admission with a white count 7.5. Covid test was positive positive along with normal renal function and normal procalcitonin. Chest x-ray: Bilateral pneumonia. Patient initiated on Covid protocol, ID and pulmonary care following Assessment and plan: --Acute hypoxic resp failure due to covid19 -S/p BiPAP, now discontinued -Currently on high per nasal cannula -See RT notes for titration -Albuterol as needed -Pulmonary hygiene -Pulmonology following CTA chest ordered, patient could not tolerate --covid19 pna; sepsis; -zinc/vitC/D - on empiric steroid ; wean as appropriate -Infectious disease consulted, -S/p Actemra and remdesivir -Trend temperature and WBC curve -Follow culture data --Oral candidiasis Nystatin solution ordered. -- hyponatremia -Trend BMP -Replace electrolytes as needed -Monitor intake and output -- coagulopathy of covid; on AC -Subcu heparin -Trend CBC -Transfuse for hemoglobin less than 7 -Bilateral lower extremity Doppler ultrasounds negative for DVT ; no CTA or VQ scan to rule out PE -- hyperglycemia; obesity -glargine HS -SSI AC/HS -Avoid hypoglycemia -- risk for protein gisella malnutrition given inc metabolic demand with resp insufficiency -TPN earlier in hospital admission due to BiPAP however now patient is tolerating p.o. -Patient on a GI soft diet with aspiration precautions -Nutrition following -Bowel regimen: Colace, senna, MiraLAX -PPI --Anxiety Likely due to severe hypoxia -Follows commands and RAY -PRN pain and anxiety meds -Patient is Irish-speaking but understands [place] --viral conjunctivitis right eye: -Right eye- s/p 5 d course of cipro drops. suspect viral conjunctivitis. lubricating eye drops. supportive management. --Septic shock -S/p pressors now discontinued -MAP goal 65 -Pressure monitor per protocol --DVT prophylaxis, per hospital protocol Hospital course to date: 04/17: Patient seen and examined, still uncomfortable with Hypoxic respiratory failure and on oxygen, will continue to steroids therapy, start patient on Remdesivir, ID consulted, Pulmonary consult placed. 04/18: Patient seen and examined, she is currently being changed to High flow NC due to worsening HYPOXIA, will transfer to IMCU, Pulmonary and ID following. Will also give a dose of Lasix today. Monitor Inflammatory markers. 04/19: Patient seen and examined still on high flow due to hypoxia. Appears a bit more comfortable today than yesterday. Cough has decreased in frequency. We will continue high dose Dexameathasone to complete 10 days. continue on Remdesivir 200 mg IV q day x 1 followed by 100 mg IV q day x 4 days -Obtain q48-72h inflammatory markers - ferritin, Ddimer, CRP, LDH Will also give lasix daily for the next 3 days and monitor renal function. Family updated. Continue prone positioning as tolerated 04/20: Patient has some desaturation episodes yesterday was placed on BiPAP. Discussed with ICU team for bed availability for patient to be transferred up. Continue prone position as tolerated. 04/21: Patient remains with profound hypoxia secondary to COVID pneumonia. -Continue steroids -Continue remedesir -S/P Actmera 04/22: Patient remains on steroids and remdesivir. ABG shows persistent hypoxia. We will continue current management additional trial of Lasix for the next few days to see if any improvement. Monitor inflammatory markers as needed. Prognosis is guarded remains on high flow 04/23; patient was treated with remdesivir and Actemra. Continue steroid. Bon blackmon's prognosis is guarded. 04/24; patient is on steroid. Patient is currently on BiPAP. Prognosis is guarded. Pulmonary is following. Patient was given Lasix and Ativan. 04/25; continue steroid. Patient was on 40 L of high flow oxygen with saturation was 88%. Pulmonary is following. Prognosis is guarded. Patient was given lasix and ativan. 04/26; patient is on BiPAP and Precedex. Prognosis is guarded. 04/27; patient is on BiPAP and Precedex. Patient will finish steroid today and will start on Solu-Medrol tomorrow. Prognosis is guarded. Blood pressure is better today. Hold Lasix. 04/28 patient is on 100 Fio2 via BIPAP. moderately dyspneic, pulmonary note reviewed, lab results reviewed 04/29 no acute events- see systems review above 04/30 no acute events overnight - on airvo today- TPN started -see systems review above -18 no acute events overnight- tolerating airvo- see systems review above - no acute events overnight; tolerating airvo this AM- see systems review above 05/03: Patient has shown remarkable improvement, weaned down to 3 L and satting 95%. Will attempt to walk test today in anticipation for discharge tomorrow. Discussed with PT team to walk the patient today also. 05/04: Patient appears to have had a decline he was down to 3 L satting 95% with anticipation for discharge today but desatted down to 85% on room air and only 88% on 5 L he is now back at 8 L. I encourage incentive spirometer. While he is on Xarelto and has completed the severe steroids which was subsequently changed to Solu-Medrol I will go ahead and order a CTA to make sure that there is not a failure of Xarelto. We will continue to wean as tolerated discussed with nursing staff at bedside. 05/05/21 Patient is on 40 L of oxygen with 80% FiO2. Patient is encouraged to turn to the side more frequently. Patient is denied any shortness of breath and coughing. No other complaints. Follow the CT scan of the chest. Status post remdesivir and Actemra.Solu-Medrol 40 mg IV every 8 hours. Continue current management. Pulmonary follow-up. 05/06: Patient remains on high flow nasal cannula but states that she feels slightly better with the help of translation from her cousin Aspen. Patient is still awaiting a bed on the floor. Patient diet is being tolerated now so we will stop TPN will be stopped tonight. 05/07/2021: Patient remains on 40 L/min oxygen at 90% FiO2. Attempt made for CTA chest to rule out pulmonary embolism however patient desatted while at CT. Study was aborted, will reattempt again tomorrow. will follow along with renetta bertrand. Discussed/updated patient and patient's daughter over phone regarding any active clinical issues. Patient only complaint is oral pain from oral candidiasis noted on exam. Nystatin oral solution ordered. Daughter also voiced concern over patient eye drops which she stated that patient needed to restart from home. However she did not remember name of drops. advised daughter to call our hospital with drop name and dosing and we will restart. 05/08/2021: Started anticoagulation with Lovenox yesterday. Awaiting CTA chest completion. Will attempt to de-escalate oxygen as patient tolerates 05/09/2021: Continues to have high O2 requirements. CTA chest aborted due to patient not being able to tolerate transport to and from scanner. Will follow pulmonology recommendations 05/10/2021: Steroids increased yesterday to 125 mg every 8 hour. Continuing full dose anticoagulation. Respiratory status still remains challenging as it is difficult to wean patient off of hifnc. Minimal improvement compared to last few days. Plan to prone patient today. Otherwise: Some improvement in eye symptoms compared to yesterday. Will order more lubricating eye drops 05/11/2021: Still requires high flow nasal cannula, FiO2 de-escalated to 85%.. Encourage continued proning, patient care team aware. Continue with steroids, anticoagulation, antibiotics. 05/12/2021: High flow nasal cannula remains at flow rate 35 L/min and FiO2 of 85%. Patient appears more comfortable today. Started insulin regimen due to hyperglycemia likely multifactorial in the setting of underlying diabetes and high-dose steroids. Continue to encourage patient to prone. Discussed with pulmonology regarding patient underlying anxiety. We both agreed that low-dose BuSpar might be beneficial for the patient. 05/13/2020: hypoxic resp distress overnight. cpap ordered. Current settings on encounter 30/04 at 100% FIO2. Advised care (RN, RT, PT) team to continue to aggressively work with patient as far as proning. Patient can sit at side of bed and rest on bedside tray w/ pillow in "Rodin's thinker pose". continue high dose steroids, PRN ativan for anxiety, Buspar noted in pulm recs. 05/14/21: Patient remains on 100% O2 with high flow. Follow inflammatory markers, wean FiO2 as tolerated, guarded prognosis 05/15: Patient on 40 L high flow O2 today-requiring nonrebreather intermittently, continue to follow inflammatory markers and wean off O2 as tolerated, guarded prognosis. 05/16:-Remains on high flow O2 along with nonrebreather, continue to follow inflammatory markers and wean off O2 as tolerated, pulmonary and ID following. Guarded prognosis, patient requiring higher concentration of O2 and unable to wean off. 05/17: Persistently recurring higher concentration O2. Patient on both high flow oxygen and nonrebreather. Poor prognosis, continue to follow inflammatory markers. ID and pulmonary care following. Updated family. 05/18: Patient remains on nonrebreather and high flow O2, Prone if possible. Wean FiO2 for sats >88%. Prognosis is very very guarded. Follow inflammatory markers. 05/19: Wean FiO2 for sats >88%. Patient remains on nonrebreather and high flow O2, Prone if possible. Follow inflammatory markers. Prognosis is very very guarded. 05/20: Patient remains on high flow O2 along with nonrebreather. Guarded prognosis. Wean off O2 as tolerated. Pulmonary and ID following 05/21: Clinically very poor prognosis. Patient continuously requiring high flow O2 along with nonrebreather. Updated daughter with all clinical details. Follow BMP, follow inflammatory markers. Wean off O2 as tolerated. 05/22: Remains on nonrebreather and high flow O2. Continue to monitor clinically, guarded prognosis. Continue to follow inflammatory markers. ID and pulmonary also following. 06/11/21: Remains on high flow O2, poor prognosis 06/12/2021 On high flow nasal cannula oxygen Steroids will be tapered Prone position 06/13/21:Changed to prednisone 60 daily [id number]/1/21. Prone if able and wean for sats >88% 06/14/21: Continue oral steroid therapy. Weaning of steroids to continue. Proning as tolerated 06/15: Remains on 30 L high flow O2, continue to wean off as tolerated, patient on steroid, guarded prognosis, call patient family for update but the phone number in the chart looks like not in service. Subjective Date of service: 06/15/21 Principal diagnosis: Covid-19 Interval history: Patient seen and examined. Medical records and medication list reviewed. No acute event overnight noted by the RN. Patient remains on high flow O2. Patient is tolerating diet. Discussed plan of care at bedside with patient. Objective - Exam Narrative Exam: Limited physical exam due to COVID-19 pandemic to minimize transmission of the disease and to preserve PPE. Vital reviewed and stable. GENERAL: well-developed well-nourished lying on bed appeared to be in no discomfort. HEENT: Normocephalic. Atraumatic. Right eye congestion NECK: Supple. CHEST/LUNGS: breathing on high flow O2 HEART/CARDIOVASCULAR: Heart rate stable on telemetry ABDOMEN: Visibly not distended SKIN: There is no rash NEURO: No focal motor deficit. Follows command. MUSCULOSKELETAL: No joint effusion EXTRIMITY: No swelling, no cyanosis or clubbing. PSYCH: Cooperative. - Constitutional Vitals: Vital Signs - 12hr 06/15/21 06/15/21 06/15/21 04:30 05:35 10:00 Temperature 98.8 F Pulse Rate 78 Respiratory 20 Rate Blood Pressure 104/66 O2 Sat by Pulse 93 95 94 Oximetry 06/15/21 06/15/21 11:40 12:21 Temperature 98.0 F Pulse Rate 94 H Respiratory 20 Rate Blood Pressure 112/73 O2 Sat by Pulse 94 94 Oximetry - Labs CBC & Chem 7: 06/15/21 08:00 06/15/21 08:00 Labs: Abnormal lab results 06/14/21 06/14/21 06/15/21 Range/Units 17:44 21:44 08:00 MCH 33 H (28-32) pg MCHC 35 H (30-34) % RDW 20.3 H (13.2-15.2) % Potassium (3.6-5.0) mmol/L Chloride (98-107) mmol/L Carbon Dioxide (22-30) mmol/L BUN (7-17) mg/dL Creatinine (0.6-1.2) mg/dL Glucose (65-100) mg/dL POC Glucose 293 H 288 H (70-105) mg/dL 06/15/21 06/15/21 Range/Units 08:00 11:40 MCH (28-32) pg MCHC (30-34) % RDW (13.2-15.2) % Potassium 3.2 L (3.6-5.0) mmol/L Chloride 95.3 L (98-107) mmol/L Carbon Dioxide 32 H (22-30) mmol/L BUN 23 H (7-17) mg/dL Creatinine 0.2 L (0.6-1.2) mg/dL Glucose 103 H (65-100) mg/dL POC Glucose 204 H (70-105) mg/dL
--- NOTE | 2021-06-15 17:31 | Progress Note ---
Assessment and Plan Imp: 1. Covid-19 2. Viral pneumonia 3. Acute respiratory failure, hypoxia Rec: 1. S/p Remdesivir, Actemra 2. Prednisone same 3. SubQ Lovenox; D-dimer improving 4. Proning 5. Wean HFNC to keep sats 88% or > Subjective Date of service: 06/15/21 Principal diagnosis: Covid-19 Interval history: No events. On 30LPM and 60% FiO2 HFNC. + SOB. Active Medications Acetaminophen (Acetaminophen 325 Mg Tab) 650 mg PO Q4H PRN PRN Reason: Pain MILD(1-3)/Fever >100.5/[place] Last Admin: 06/14/21 23:04 Dose: 650 mg Documented by: Albuterol (Albuterol 2.5 Mg/3 Ml Nebu) 2.5 mg IH Q4HRT PRN PRN Reason: Shortness Of Breath Last Admin: 04/21/21 20:39 Dose: 2.5 mg Documented by: Artificial Tears (Hypromellose 0.5% Ophth Soln 15 Ml) 2 drops OU Q4H PRN PRN Reason: Dry Eye(s) Last Admin: 05/29/21 13:25 Dose: 2 drops Documented by: Ascorbic Acid (Ascorbic Acid 500 Mg Tab) 500 mg PO QDAY [facility] Last Admin: 06/15/21 10:44 Dose: 500 mg Documented by: Bisacodyl (Bisacodyl 10 Mg Rect Supp) 10 mg CO QDAY PRN PRN Reason: Constipation Cholecalciferol (Cholecalciferol (Vit D3) 1000 Unit (25 Mcg) Tab) 1,000 unit PO QDAY [facility] Last Admin: 06/15/21 10:45 Dose: 1,000 unit Documented by: Clonazepam (Clonazepam 0.5 Mg Tab) 1 mg PO Q8H PRN PRN Reason: Anxiety Last Admin: 06/09/21 21:55 Dose: 1 mg Documented by: Dextrose (Dextrose 50% In Water (25gm) 50 Ml Syringe) 50 ml IV Q30MIN PRN; Protocol PRN Reason: Hypoglycemia Last Admin: 04/28/21 09:59 Dose: 50 ml Documented by: Docusate Sodium (Docusate Sodium 100 Mg Cap) 100 mg PO BID [facility] Last Admin: 06/15/21 10:44 Dose: 100 mg Documented by: Enoxaparin Sodium (Enoxaparin 40 Mg/0.4 Ml Inj) 40 mg SUB-Q QDAY@2200 [facility]; Protocol Last Admin: 06/14/21 22:55 Dose: 40 mg Documented by: Furosemide (Furosemide 40 Mg/4 Ml Inj) 40 mg IV QDAY [facility] Last Admin: 06/15/21 10:44 Dose: 40 mg Documented by: Insulin Glargine (Insulin Glargine 100 Units/Ml) 25 units SUB-Q DAILY [facility] Last Admin: 06/15/21 10:00 Dose: 25 units Documented by: Insulin Glargine (Insulin Glargine 100 Units/Ml) 8 units SUB-Q QHS [facility] Last Admin: 06/14/21 22:58 Dose: 8 units Documented by: Insulin Human Lispro (Insulin Lispro 100 Unit/Ml) 0 unit SUB-Q ACHS [facility]; Protocol Last Admin: 06/15/21 16:30 Dose: 6 unit Documented by: Lorazepam (Lorazepam 2 Mg/Ml Vial) 1 mg IV Q6H PRN PRN Reason: Agitation Last Admin: 06/11/21 23:55 Dose: 1 mg Documented by: Magnesium Hydroxide (Magnesium Hydroxide (Mom) Oral Liqd Udc) 30 ml PO QDAY PRN PRN Reason: Constipation Last Admin: 06/11/21 11:06 Dose: 30 ml Documented by: Ondansetron HCl (Ondansetron 4 Mg/2 Ml Inj) 4 mg IV Q8H PRN PRN Reason: Nausea And Vomiting Last Admin: 05/30/21 10:07 Dose: 4 mg Documented by: Prednisone (Prednisone 20 Mg Tab) 60 mg PO QDAY [facility] Last Admin: 06/15/21 10:44 Dose: 60 mg Documented by: Senna (Sennosides 8.6 Mg Tab) 17.2 mg PO QHS [facility] Last Admin: 06/14/21 22:55 Dose: 17.2 mg Documented by: Sodium Chloride (Sodium Chloride 0.9% 10 Ml Flush Syringe) 10 ml IV BID [facility] Last Admin: 06/15/21 10:45 Dose: 10 ml Documented by: Sodium Chloride (Sodium Chloride 0.9% 10 Ml Flush Syringe) 10 ml IV PRN PRN PRN Reason: LINE FLUSH Last Admin: 05/22/21 15:21 Dose: 10 ml Documented by: Zinc Sulfate (Zinc Sulfate 220 Mg Cap) 220 mg PO BID [facility] Last Admin: 06/15/21 10:44 Dose: 220 mg Documented by: Zolpidem Tartrate (Zolpidem 5 Mg Tab) 10 mg PO QHS PRN PRN Reason: Insomnia Last Admin: 06/14/21 23:10 Dose: 10 mg Documented by: Objective - Exam Narrative Exam: Exam deferred to preserve PPE and decrease transmission of virus. Reviewed primary team exam. Vital Signs - 12hr 06/15/21 06/15/21 06/15/21 05:35 10:00 11:40 Temperature 98.8 F 98.0 F Pulse Rate 78 94 H Respiratory 20 20 Rate Blood Pressure 104/66 112/73 O2 Sat by Pulse 95 94 94 Oximetry 06/15/21 06/15/21 12:21 15:32 Temperature Pulse Rate Respiratory Rate Blood Pressure O2 Sat by Pulse 94 93 Oximetry CBC and BMP: 06/15/21 08:00 06/15/21 08:00 ABG, PT/INR, D-dimer: ABG ABG pH 7.403 pH Units (7.350-7.450) 05/14/21 02:23 POC ABG pCO2 45.4 mmHg (32.0-48.0) 05/03/21 04:49 ABG pCO2 50.2 mm Hg 05/14/21 02:23 POC ABG pO2 65.3 mmHg (83-108) L 05/03/21 04:49 ABG pO2 130.3 mm Hg (80.0-90.0) H 05/14/21 02:23 POC ABG HCO3 18.5 05/03/21 04:49 ABG O2 Saturation 98.5 % (95.0-99.0) 05/14/21 02:23 PT/INR, D-dimer D-Dimer 488.49 ng/mlDDU (0-234) H 06/05/21 05:26 Abnormal lab findings: Abnormal Labs 04/16/21 04/16/21 04/16/21 11:42 11:42 11:42 WBC MCH MCHC RDW 16.1 H Lymph % (Auto) 7.8 L Lymph # (Auto) 0.8 L Baso # (Auto) Seg Neutrophils % 87.7 H Seg Neuts % (Manual) Lymphocytes % (Manual) Seg Neutrophils # 8.5 H Seg Neutrophils # Man Lymphocytes # (Manual) D-Dimer 338.70 H ABG pH POC ABG pO2 ABG pO2 ABG HCO3 ABG O2 Saturation ABG Base Excess ABG Oxyhemoglobin ABG Sodium ABG Chloride ABG Glucose Oxyhemoglobin Carboxyhemoglobin Sodium Potassium Chloride Carbon Dioxide BUN Creatinine Glucose 194 H POC Glucose Hemoglobin A1c Ferritin AST ALT Alkaline Phosphatase Lactate Dehydrogenase C-Reactive Protein Total Protein 8.4 H Albumin 3.8 L Arterial Blood Glucose Coronavirus (PCR) 04/16/21 04/16/21 04/17/21 11:42 11:42 03:50 WBC MCH MCHC RDW 16.0 H Lymph % (Auto) 7.7 L Lymph # (Auto) 0.6 L Baso # (Auto) Seg Neutrophils % 89.8 H Seg Neuts % (Manual) Lymphocytes % (Manual) Seg Neutrophils # Seg Neutrophils # Man Lymphocytes # (Manual) D-Dimer ABG pH POC ABG pO2 ABG pO2 ABG HCO3 ABG O2 Saturation ABG Base Excess ABG Oxyhemoglobin ABG Sodium ABG Chloride ABG Glucose Oxyhemoglobin Carboxyhemoglobin Sodium Potassium Chloride Carbon Dioxide BUN Creatinine Glucose 195 H POC Glucose Hemoglobin A1c Ferritin 254.3 H AST ALT Alkaline Phosphatase Lactate Dehydrogenase 359 H C-Reactive Protein 15.20 H Total Protein Albumin Arterial Blood Glucose Coronavirus (PCR) 04/17/21 04/17/21 04/17/21 03:50 08:26 08:26 WBC MCH MCHC RDW Lymph % (Auto) Lymph # (Auto) Baso # (Auto) Seg Neutrophils % Seg Neuts % (Manual) Lymphocytes % (Manual) Seg Neutrophils # Seg Neutrophils # Man Lymphocytes # (Manual) D-Dimer 262.48 H ABG pH POC ABG pO2 ABG pO2 ABG HCO3 ABG O2 Saturation ABG Base Excess ABG Oxyhemoglobin ABG Sodium ABG Chloride ABG Glucose Oxyhemoglobin Carboxyhemoglobin Sodium Potassium Chloride Carbon Dioxide BUN 20 H Creatinine 0.5 L Glucose 249 H 225 H POC Glucose Hemoglobin A1c Ferritin AST ALT Alkaline Phosphatase Lactate Dehydrogenase 338 H C-Reactive Protein 17.20 H Total Protein Albumin 3.2 L Arterial Blood Glucose Coronavirus (PCR) 04/17/21 04/17/21 04/17/21 08:26 15:04 Unknown WBC MCH MCHC RDW Lymph % (Auto) Lymph # (Auto) Baso # (Auto) Seg Neutrophils % Seg Neuts % (Manual) Lymphocytes % (Manual) Seg Neutrophils # Seg Neutrophils # Man Lymphocytes # (Manual) D-Dimer ABG pH POC ABG pO2 ABG pO2 ABG HCO3 ABG O2 Saturation ABG Base Excess ABG Oxyhemoglobin ABG Sodium ABG Chloride ABG Glucose Oxyhemoglobin Carboxyhemoglobin Sodium Potassium Chloride Carbon Dioxide BUN 20 H Creatinine 0.5 L Glucose 246 H POC Glucose Hemoglobin A1c Ferritin 392.0 H AST ALT Alkaline Phosphatase Lactate Dehydrogenase C-Reactive Protein Total Protein 8.3 H Albumin 3.1 L Arterial Blood Glucose Coronavirus (PCR) Positive A 04/18/21 04/18/21 04/18/21 05:06 05:06 07:36 WBC 11.6 H MCH MCHC RDW 16.1 H Lymph % (Auto) Lymph # (Auto) Baso # (Auto) Seg Neutrophils % Seg Neuts % (Manual) Lymphocytes % (Manual) Seg Neutrophils # Seg Neutrophils # Man Lymphocytes # (Manual) D-Dimer ABG pH POC ABG pO2 ABG pO2 ABG HCO3 ABG O2 Saturation ABG Base Excess ABG Oxyhemoglobin ABG Sodium ABG Chloride ABG Glucose Oxyhemoglobin Carboxyhemoglobin Sodium Potassium 5.2 H Chloride Carbon Dioxide BUN 22 H Creatinine 0.5 L Glucose 315 H POC Glucose Hemoglobin A1c 8.5 H Ferritin AST ALT Alkaline Phosphatase Lactate Dehydrogenase C-Reactive Protein Total Protein Albumin 3.3 L Arterial Blood Glucose Coronavirus (PCR) 04/18/21 04/18/21 04/18/21 11:59 16:43 23:24 WBC MCH MCHC RDW Lymph % (Auto) Lymph # (Auto) Baso # (Auto) Seg Neutrophils % Seg Neuts % (Manual) Lymphocytes % (Manual) Seg Neutrophils # Seg Neutrophils # Man Lymphocytes # (Manual) D-Dimer ABG pH POC ABG pO2 ABG pO2 ABG HCO3 ABG O2 Saturation ABG Base Excess ABG Oxyhemoglobin ABG Sodium ABG Chloride ABG Glucose Oxyhemoglobin Carboxyhemoglobin Sodium Potassium Chloride Carbon Dioxide BUN Creatinine Glucose POC Glucose 284 H 273 H 290 H Hemoglobin A1c Ferritin AST ALT Alkaline Phosphatase Lactate Dehydrogenase C-Reactive Protein Total Protein Albumin Arterial Blood Glucose Coronavirus (PCR) 04/19/21 04/19/21 04/19/21 04:19 04:19 08:10 WBC MCH MCHC RDW 15.7 H Lymph % (Auto) Lymph # (Auto) Baso # (Auto) Seg Neutrophils % Seg Neuts % (Manual) Lymphocytes % (Manual) Seg Neutrophils # Seg Neutrophils # Man Lymphocytes # (Manual) D-Dimer ABG pH POC ABG pO2 ABG pO2 ABG HCO3 ABG O2 Saturation ABG Base Excess ABG Oxyhemoglobin ABG Sodium ABG Chloride ABG Glucose Oxyhemoglobin Carboxyhemoglobin Sodium Potassium Chloride Carbon Dioxide BUN 27 H Creatinine 0.4 L Glucose 184 H POC Glucose 194 H Hemoglobin A1c Ferritin AST ALT Alkaline Phosphatase Lactate Dehydrogenase C-Reactive Protein Total Protein Albumin 3.1 L Arterial Blood Glucose Coronavirus (PCR) 04/19/21 04/19/21 04/19/21 11:38 16:25 22:04 WBC MCH MCHC RDW Lymph % (Auto) Lymph # (Auto) Baso # (Auto) Seg Neutrophils % Seg Neuts % (Manual) Lymphocytes % (Manual) Seg Neutrophils # Seg Neutrophils # Man Lymphocytes # (Manual) D-Dimer ABG pH POC ABG pO2 ABG pO2 ABG HCO3 ABG O2 Saturation ABG Base Excess ABG Oxyhemoglobin ABG Sodium ABG Chloride ABG Glucose Oxyhemoglobin Carboxyhemoglobin Sodium Potassium Chloride Carbon Dioxide BUN Creatinine Glucose POC Glucose 224 H 297 H 251 H Hemoglobin A1c Ferritin AST ALT Alkaline Phosphatase Lactate Dehydrogenase C-Reactive Protein Total Protein Albumin Arterial Blood Glucose Coronavirus (PCR) 04/20/21 04/20/21 04/20/21 05:28 08:43 16:21 WBC MCH MCHC RDW Lymph % (Auto) Lymph # (Auto) Baso # (Auto) Seg Neutrophils % Seg Neuts % (Manual) Lymphocytes % (Manual) Seg Neutrophils # Seg Neutrophils # Man Lymphocytes # (Manual) D-Dimer ABG pH POC ABG pO2 ABG pO2 ABG HCO3 ABG O2 Saturation ABG Base Excess ABG Oxyhemoglobin ABG Sodium ABG Chloride ABG Glucose Oxyhemoglobin Carboxyhemoglobin Sodium Potassium Chloride Carbon Dioxide BUN 27 H Creatinine Glucose 192 H POC Glucose 173 H 253 H Hemoglobin A1c Ferritin AST ALT Alkaline Phosphatase Lactate Dehydrogenase C-Reactive Protein Total Protein Albumin 3.0 L Arterial Blood Glucose Coronavirus (PCR) 04/21/21 04/21/21 04/21/21 07:58 12:05 16:08 WBC MCH MCHC RDW Lymph % (Auto) Lymph # (Auto) Baso # (Auto) Seg Neutrophils % Seg Neuts % (Manual) Lymphocytes % (Manual) Seg Neutrophils # Seg Neutrophils # Man Lymphocytes # (Manual) D-Dimer ABG pH POC ABG pO2 ABG pO2 ABG HCO3 ABG O2 Saturation ABG Base Excess ABG Oxyhemoglobin ABG Sodium ABG Chloride ABG Glucose Oxyhemoglobin Carboxyhemoglobin Sodium Potassium Chloride Carbon Dioxide BUN Creatinine Glucose POC Glucose 140 H 252 H 214 H Hemoglobin A1c Ferritin AST ALT Alkaline Phosphatase Lactate Dehydrogenase C-Reactive Protein Total Protein Albumin Arterial Blood Glucose Coronavirus (PCR) 04/21/21 04/22/21 04/22/21 21:42 08:37 12:01 WBC MCH MCHC RDW Lymph % (Auto) Lymph # (Auto) Baso # (Auto) Seg Neutrophils % Seg Neuts % (Manual) Lymphocytes % (Manual) Seg Neutrophils # Seg Neutrophils # Man Lymphocytes # (Manual) D-Dimer ABG pH 7.457 H POC ABG pO2 49.4 L ABG pO2 ABG HCO3 ABG O2 Saturation ABG Base Excess ABG Oxyhemoglobin 85.6 L ABG Sodium ABG Chloride ABG Glucose 121 H Oxyhemoglobin Carboxyhemoglobin 0.3 L Sodium Potassium Chloride Carbon Dioxide BUN Creatinine Glucose POC Glucose 162 H 227 H Hemoglobin A1c Ferritin AST ALT Alkaline Phosphatase Lactate Dehydrogenase C-Reactive Protein Total Protein Albumin Arterial Blood Glucose 121 H Coronavirus (PCR) 04/22/21 04/22/21 04/23/21 16:26 22:23 04:52 WBC MCH MCHC RDW 15.7 H Lymph % (Auto) Lymph # (Auto) Baso # (Auto) Seg Neutrophils % Seg Neuts % (Manual) Lymphocytes % (Manual) Seg Neutrophils # Seg Neutrophils # Man Lymphocytes # (Manual) D-Dimer ABG pH POC ABG pO2 ABG pO2 ABG HCO3 ABG O2 Saturation ABG Base Excess ABG Oxyhemoglobin ABG Sodium ABG Chloride ABG Glucose Oxyhemoglobin Carboxyhemoglobin Sodium Potassium Chloride Carbon Dioxide BUN Creatinine Glucose POC Glucose 200 H 136 H Hemoglobin A1c Ferritin AST ALT Alkaline Phosphatase Lactate Dehydrogenase C-Reactive Protein Total Protein Albumin Arterial Blood Glucose Coronavirus (PCR) 04/23/21 04/23/21 04/23/21 04:52 12:06 17:41 WBC MCH MCHC RDW Lymph % (Auto) Lymph # (Auto) Baso # (Auto) Seg Neutrophils % Seg Neuts % (Manual) Lymphocytes % (Manual) Seg Neutrophils # Seg Neutrophils # Man Lymphocytes # (Manual) D-Dimer ABG pH POC ABG pO2 ABG pO2 ABG HCO3 ABG O2 Saturation ABG Base Excess ABG Oxyhemoglobin ABG Sodium ABG Chloride ABG Glucose Oxyhemoglobin Carboxyhemoglobin Sodium 136 L Potassium Chloride 97.7 L Carbon Dioxide BUN 23 H Creatinine Glucose 101 H POC Glucose 202 H 169 H Hemoglobin A1c Ferritin AST 46 H ALT Alkaline Phosphatase Lactate Dehydrogenase C-Reactive Protein Total Protein Albumin 3.3 L Arterial Blood Glucose Coronavirus (PCR) 04/23/21 04/24/21 04/24/21 23:08 05:17 08:38 WBC MCH MCHC RDW Lymph % (Auto) Lymph # (Auto) Baso # (Auto) Seg Neutrophils % Seg Neuts % (Manual) Lymphocytes % (Manual) Seg Neutrophils # Seg Neutrophils # Man Lymphocytes # (Manual) D-Dimer ABG pH POC ABG pO2 ABG pO2 ABG HCO3 ABG O2 Saturation ABG Base Excess ABG Oxyhemoglobin ABG Sodium ABG Chloride ABG Glucose Oxyhemoglobin Carboxyhemoglobin Sodium Potassium Chloride Carbon Dioxide BUN Creatinine Glucose POC Glucose 111 H 108 H 126 H Hemoglobin A1c Ferritin AST ALT Alkaline Phosphatase Lactate Dehydrogenase C-Reactive Protein Total Protein Albumin Arterial Blood Glucose Coronavirus (PCR) 04/24/21 04/24/21 04/24/21 11:54 17:57 21:23 WBC MCH MCHC RDW Lymph % (Auto) Lymph # (Auto) Baso # (Auto) Seg Neutrophils % Seg Neuts % (Manual) Lymphocytes % (Manual) Seg Neutrophils # Seg Neutrophils # Man Lymphocytes # (Manual) D-Dimer ABG pH POC ABG pO2 ABG pO2 ABG HCO3 ABG O2 Saturation ABG Base Excess ABG Oxyhemoglobin ABG Sodium ABG Chloride ABG Glucose Oxyhemoglobin Carboxyhemoglobin Sodium Potassium Chloride Carbon Dioxide BUN Creatinine Glucose POC Glucose 147 H 177 H 138 H Hemoglobin A1c Ferritin AST ALT Alkaline Phosphatase Lactate Dehydrogenase C-Reactive Protein Total Protein Albumin Arterial Blood Glucose Coronavirus (PCR) 04/25/21 04/25/21 04/25/21 07:06 11:23 15:43 WBC MCH MCHC RDW Lymph % (Auto) Lymph # (Auto) Baso # (Auto) Seg Neutrophils % Seg Neuts % (Manual) Lymphocytes % (Manual) Seg Neutrophils # Seg Neutrophils # Man Lymphocytes # (Manual) D-Dimer ABG pH POC ABG pO2 ABG pO2 ABG HCO3 ABG O2 Saturation ABG Base Excess ABG Oxyhemoglobin ABG Sodium ABG Chloride ABG Glucose Oxyhemoglobin Carboxyhemoglobin Sodium Potassium Chloride Carbon Dioxide BUN Creatinine Glucose POC Glucose 147 H 169 H 227 H Hemoglobin A1c Ferritin AST ALT Alkaline Phosphatase Lactate Dehydrogenase C-Reactive Protein Total Protein Albumin Arterial Blood Glucose Coronavirus (PCR) 04/25/21 04/26/21 04/26/21 21:22 02:45 05:15 WBC MCH MCHC RDW Lymph % (Auto) Lymph # (Auto) Baso # (Auto) Seg Neutrophils % Seg Neuts % (Manual) Lymphocytes % (Manual) Seg Neutrophils # Seg Neutrophils # Man Lymphocytes # (Manual) D-Dimer ABG pH POC ABG pO2 70.7 L ABG pO2 ABG HCO3 ABG O2 Saturation ABG Base Excess ABG Oxyhemoglobin 93.0 L ABG Sodium 132.7 L ABG Chloride ABG Glucose 115 H Oxyhemoglobin Carboxyhemoglobin Sodium Potassium Chloride 95.8 L Carbon Dioxide 32 H BUN 20 H Creatinine Glucose 102 H POC Glucose 196 H Hemoglobin A1c Ferritin AST ALT Alkaline Phosphatase Lactate Dehydrogenase C-Reactive Protein Total Protein Albumin Arterial Blood Glucose 115 H Coronavirus (PCR) 04/26/21 04/26/21 04/26/21 11:49 16:09 21:07 WBC MCH MCHC RDW Lymph % (Auto) Lymph # (Auto) Baso # (Auto) Seg Neutrophils % Seg Neuts % (Manual) Lymphocytes % (Manual) Seg Neutrophils # Seg Neutrophils # Man Lymphocytes # (Manual) D-Dimer ABG pH POC ABG pO2 ABG pO2 ABG HCO3 ABG O2 Saturation ABG Base Excess ABG Oxyhemoglobin ABG Sodium ABG Chloride ABG Glucose Oxyhemoglobin Carboxyhemoglobin Sodium Potassium Chloride Carbon Dioxide BUN Creatinine Glucose POC Glucose 114 H 188 H 136 H Hemoglobin A1c Ferritin AST ALT Alkaline Phosphatase Lactate Dehydrogenase C-Reactive Protein Total Protein Albumin Arterial Blood Glucose Coronavirus (PCR) 04/27/21 04/27/21 04/28/21 17:34 22:12 08:26 WBC MCH MCHC RDW Lymph % (Auto) Lymph # (Auto) Baso # (Auto) Seg Neutrophils % Seg Neuts % (Manual) Lymphocytes % (Manual) Seg Neutrophils # Seg Neutrophils # Man Lymphocytes # (Manual) D-Dimer ABG pH POC ABG pO2 ABG pO2 ABG HCO3 ABG O2 Saturation ABG Base Excess ABG Oxyhemoglobin ABG Sodium ABG Chloride ABG Glucose Oxyhemoglobin Carboxyhemoglobin Sodium Potassium Chloride Carbon Dioxide BUN Creatinine Glucose POC Glucose 128 H 159 H 69 L Hemoglobin A1c Ferritin AST ALT Alkaline Phosphatase Lactate Dehydrogenase C-Reactive Protein Total Protein Albumin Arterial Blood Glucose Coronavirus (PCR) 04/28/21 04/28/21 04/29/21 12:22 21:11 06:05 WBC MCH MCHC RDW Lymph % (Auto) Lymph # (Auto) Baso # (Auto) Seg Neutrophils % Seg Neuts % (Manual) Lymphocytes % (Manual) Seg Neutrophils # Seg Neutrophils # Man Lymphocytes # (Manual) D-Dimer ABG pH POC ABG pO2 ABG pO2 ABG HCO3 ABG O2 Saturation ABG Base Excess ABG Oxyhemoglobin ABG Sodium ABG Chloride ABG Glucose Oxyhemoglobin Carboxyhemoglobin Sodium 132 L Potassium Chloride 94.4 L Carbon Dioxide BUN Creatinine 0.2 L D Glucose 140 H POC Glucose 141 H 171 H Hemoglobin A1c Ferritin AST ALT Alkaline Phosphatase Lactate Dehydrogenase C-Reactive Protein Total Protein Albumin Arterial Blood Glucose Coronavirus (PCR) 04/29/21 04/29/21 04/29/21 06:05 07:24 11:36 WBC MCH MCHC 35 H RDW 15.9 H Lymph % (Auto) Lymph # (Auto) Baso # (Auto) Seg Neutrophils % Seg Neuts % (Manual) Lymphocytes % (Manual) Seg Neutrophils # Seg Neutrophils # Man Lymphocytes # (Manual) D-Dimer ABG pH POC ABG pO2 ABG pO2 ABG HCO3 ABG O2 Saturation ABG Base Excess ABG Oxyhemoglobin ABG Sodium ABG Chloride ABG Glucose Oxyhemoglobin Carboxyhemoglobin Sodium Potassium Chloride Carbon Dioxide BUN Creatinine Glucose POC Glucose 141 H 220 H Hemoglobin A1c Ferritin AST ALT Alkaline Phosphatase Lactate Dehydrogenase C-Reactive Protein Total Protein Albumin Arterial Blood Glucose Coronavirus (PCR) 04/29/21 04/29/21 04/29/21 14:23 15:30 17:06 WBC MCH MCHC RDW Lymph % (Auto) Lymph # (Auto) Baso # (Auto) Seg Neutrophils % Seg Neuts % (Manual) Lymphocytes % (Manual) Seg Neutrophils # Seg Neutrophils # Man Lymphocytes # (Manual) D-Dimer ABG pH POC ABG pO2 ABG pO2 52.6 L ABG HCO3 ABG O2 Saturation 86.4 L ABG Base Excess ABG Oxyhemoglobin ABG Sodium ABG Chloride ABG Glucose Oxyhemoglobin 84.6 L Carboxyhemoglobin Sodium Potassium Chloride Carbon Dioxide BUN Creatinine Glucose POC Glucose 173 H 158 H Hemoglobin A1c Ferritin AST ALT Alkaline Phosphatase Lactate Dehydrogenase C-Reactive Protein Total Protein Albumin Arterial Blood Glucose Coronavirus (PCR) 04/29/21 04/30/21 04/30/21 21:27 07:16 08:00 WBC MCH MCHC RDW 16.1 H Lymph % (Auto) Lymph # (Auto) Baso # (Auto) Seg Neutrophils % Seg Neuts % (Manual) Lymphocytes % (Manual) Seg Neutrophils # Seg Neutrophils # Man Lymphocytes # (Manual) D-Dimer ABG pH POC ABG pO2 ABG pO2 ABG HCO3 ABG O2 Saturation ABG Base Excess ABG Oxyhemoglobin ABG Sodium ABG Chloride ABG Glucose Oxyhemoglobin Carboxyhemoglobin Sodium Potassium Chloride Carbon Dioxide BUN Creatinine Glucose POC Glucose 244 H 175 H Hemoglobin A1c Ferritin AST ALT Alkaline Phosphatase Lactate Dehydrogenase C-Reactive Protein Total Protein Albumin Arterial Blood Glucose Coronavirus (PCR) 04/30/21 04/30/21 04/30/21 08:00 08:00 11:03 WBC MCH MCHC RDW Lymph % (Auto) Lymph # (Auto) Baso # (Auto) Seg Neutrophils % Seg Neuts % (Manual) Lymphocytes % (Manual) Seg Neutrophils # Seg Neutrophils # Man Lymphocytes # (Manual) D-Dimer 1796.87 H ABG pH POC ABG pO2 ABG pO2 ABG HCO3 ABG O2 Saturation ABG Base Excess ABG Oxyhemoglobin ABG Sodium ABG Chloride ABG Glucose Oxyhemoglobin Carboxyhemoglobin Sodium 135 L Potassium Chloride 96.3 L Carbon Dioxide BUN Creatinine 0.2 L Glucose 153 H POC Glucose 183 H Hemoglobin A1c Ferritin AST 41 H ALT 76 H Alkaline Phosphatase 160 H Lactate Dehydrogenase 522 H C-Reactive Protein Total Protein 6.1 L Albumin 3.1 L Arterial Blood Glucose Coronavirus (PCR) 04/30/21 04/30/21 05/01/21 17:04 22:17 05:39 WBC MCH MCHC RDW Lymph % (Auto) Lymph # (Auto) Baso # (Auto) Seg Neutrophils % Seg Neuts % (Manual) Lymphocytes % (Manual) Seg Neutrophils # Seg Neutrophils # Man Lymphocytes # (Manual) D-Dimer ABG pH POC ABG pO2 ABG pO2 ABG HCO3 ABG O2 Saturation ABG Base Excess ABG Oxyhemoglobin ABG Sodium ABG Chloride ABG Glucose Oxyhemoglobin Carboxyhemoglobin Sodium 133 L Potassium Chloride 92.1 L Carbon Dioxide BUN 24 H Creatinine 0.4 L D Glucose 269 H POC Glucose 167 H 208 H Hemoglobin A1c Ferritin AST ALT 66 H Alkaline Phosphatase 142 H Lactate Dehydrogenase C-Reactive Protein Total Protein Albumin 3.2 L Arterial Blood Glucose Coronavirus (PCR) 05/01/21 05/01/21 05/01/21 05:39 05:39 07:45 WBC MCH MCHC RDW 16.0 H Lymph % (Auto) Lymph # (Auto) Baso # (Auto) Seg Neutrophils % Seg Neuts % (Manual) Lymphocytes % (Manual) Seg Neutrophils # Seg Neutrophils # Man Lymphocytes # (Manual) D-Dimer 3984.95 H ABG pH POC ABG pO2 ABG pO2 ABG HCO3 ABG O2 Saturation ABG Base Excess ABG Oxyhemoglobin ABG Sodium ABG Chloride ABG Glucose Oxyhemoglobin Carboxyhemoglobin Sodium Potassium Chloride Carbon Dioxide BUN Creatinine Glucose POC Glucose 229 H Hemoglobin A1c Ferritin AST ALT Alkaline Phosphatase Lactate Dehydrogenase C-Reactive Protein Total Protein Albumin Arterial Blood Glucose Coronavirus (PCR) 05/01/21 05/01/21 05/01/21 12:10 15:46 21:06 WBC MCH MCHC RDW Lymph % (Auto) Lymph # (Auto) Baso # (Auto) Seg Neutrophils % Seg Neuts % (Manual) Lymphocytes % (Manual) Seg Neutrophils # Seg Neutrophils # Man Lymphocytes # (Manual) D-Dimer ABG pH POC ABG pO2 ABG pO2 ABG HCO3 ABG O2 Saturation ABG Base Excess ABG Oxyhemoglobin ABG Sodium ABG Chloride ABG Glucose Oxyhemoglobin Carboxyhemoglobin Sodium Potassium Chloride Carbon Dioxide BUN Creatinine Glucose POC Glucose 296 H 279 H 232 H Hemoglobin A1c Ferritin AST ALT Alkaline Phosphatase Lactate Dehydrogenase C-Reactive Protein Total Protein Albumin Arterial Blood Glucose Coronavirus (PCR) 05/02/21 05/02/21 05/02/21 04:55 04:55 04:55 WBC MCH MCHC RDW 16.1 H Lymph % (Auto) Lymph # (Auto) Baso # (Auto) Seg Neutrophils % Seg Neuts % (Manual) Lymphocytes % (Manual) Seg Neutrophils # Seg Neutrophils # Man Lymphocytes # (Manual) D-Dimer 1401.08 H ABG pH POC ABG pO2 ABG pO2 ABG HCO3 ABG O2 Saturation ABG Base Excess ABG Oxyhemoglobin ABG Sodium ABG Chloride ABG Glucose Oxyhemoglobin Carboxyhemoglobin Sodium 131 L Potassium Chloride 95.5 L Carbon Dioxide BUN 20 H Creatinine 0.3 L Glucose 288 H POC Glucose Hemoglobin A1c Ferritin AST ALT Alkaline Phosphatase Lactate Dehydrogenase C-Reactive Protein Total Protein 6.0 L Albumin 3.1 L Arterial Blood Glucose Coronavirus (PCR) 05/02/21 05/02/21 05/02/21 07:53 11:45 15:25 WBC MCH MCHC RDW Lymph % (Auto) Lymph # (Auto) Baso # (Auto) Seg Neutrophils % Seg Neuts % (Manual) Lymphocytes % (Manual) Seg Neutrophils # Seg Neutrophils # Man Lymphocytes # (Manual) D-Dimer ABG pH POC ABG pO2 ABG pO2 ABG HCO3 ABG O2 Saturation ABG Base Excess ABG Oxyhemoglobin ABG Sodium ABG Chloride ABG Glucose Oxyhemoglobin Carboxyhemoglobin Sodium Potassium Chloride Carbon Dioxide BUN Creatinine Glucose POC Glucose 180 H 228 H 275 H Hemoglobin A1c Ferritin AST ALT Alkaline Phosphatase Lactate Dehydrogenase C-Reactive Protein Total Protein Albumin Arterial Blood Glucose Coronavirus (PCR) 05/02/21 05/03/21 05/03/21 22:56 04:30 04:49 WBC MCH MCHC RDW Lymph % (Auto) Lymph # (Auto) Baso # (Auto) Seg Neutrophils % Seg Neuts % (Manual) Lymphocytes % (Manual) Seg Neutrophils # Seg Neutrophils # Man Lymphocytes # (Manual) D-Dimer ABG pH 7.229 L POC ABG pO2 65.3 L ABG pO2 ABG HCO3 ABG O2 Saturation ABG Base Excess ABG Oxyhemoglobin 87.8 L ABG Sodium 133.0 L ABG Chloride 97.0 L ABG Glucose 403 H Oxyhemoglobin Carboxyhemoglobin Sodium 130 L Potassium Chloride 94.9 L Carbon Dioxide BUN 20 H Creatinine 0.5 L D Glucose 359 H POC Glucose 293 H Hemoglobin A1c Ferritin AST 54 H ALT 75 H Alkaline Phosphatase 138 H Lactate Dehydrogenase C-Reactive Protein Total Protein Albumin 3.6 L Arterial Blood Glucose 403 H Coronavirus (PCR) 05/03/21 05/03/21 05/03/21 05:27 11:26 17:57 WBC MCH MCHC RDW Lymph % (Auto) Lymph # (Auto) Baso # (Auto) Seg Neutrophils % Seg Neuts % (Manual) Lymphocytes % (Manual) Seg Neutrophils # Seg Neutrophils # Man Lymphocytes # (Manual) D-Dimer ABG pH POC ABG pO2 ABG pO2 ABG HCO3 ABG O2 Saturation ABG Base Excess ABG Oxyhemoglobin ABG Sodium ABG Chloride ABG Glucose Oxyhemoglobin Carboxyhemoglobin Sodium Potassium Chloride Carbon Dioxide BUN Creatinine Glucose POC Glucose 361 H 297 H 226 H Hemoglobin A1c Ferritin AST ALT Alkaline Phosphatase Lactate Dehydrogenase C-Reactive Protein Total Protein Albumin Arterial Blood Glucose Coronavirus (PCR) 05/03/21 05/04/21 05/04/21 23:12 05:12 07:30 WBC MCH MCHC RDW Lymph % (Auto) Lymph # (Auto) Baso # (Auto) Seg Neutrophils % Seg Neuts % (Manual) Lymphocytes % (Manual) Seg Neutrophils # Seg Neutrophils # Man Lymphocytes # (Manual) D-Dimer ABG pH POC ABG pO2 ABG pO2 ABG HCO3 ABG O2 Saturation ABG Base Excess ABG Oxyhemoglobin ABG Sodium ABG Chloride ABG Glucose Oxyhemoglobin Carboxyhemoglobin Sodium Potassium Chloride Carbon Dioxide BUN Creatinine Glucose POC Glucose 282 H 285 H 254 H Hemoglobin A1c Ferritin AST ALT Alkaline Phosphatase Lactate Dehydrogenase C-Reactive Protein Total Protein Albumin Arterial Blood Glucose Coronavirus (PCR) 05/04/21 05/04/21 05/04/21 08:58 11:45 16:07 WBC MCH MCHC RDW Lymph % (Auto) Lymph # (Auto) Baso # (Auto) Seg Neutrophils % Seg Neuts % (Manual) Lymphocytes % (Manual) Seg Neutrophils # Seg Neutrophils # Man Lymphocytes # (Manual) D-Dimer ABG pH POC ABG pO2 ABG pO2 ABG HCO3 ABG O2 Saturation ABG Base Excess ABG Oxyhemoglobin ABG Sodium ABG Chloride ABG Glucose Oxyhemoglobin Carboxyhemoglobin Sodium 134 L Potassium Chloride Carbon Dioxide BUN 20 H Creatinine 0.3 L Glucose 267 H POC Glucose 244 H 297 H Hemoglobin A1c Ferritin AST ALT Alkaline Phosphatase Lactate Dehydrogenase C-Reactive Protein Total Protein 6.0 L Albumin 3.2 L Arterial Blood Glucose Coronavirus (PCR) 05/04/21 05/05/21 05/05/21 23:32 05:00 05:13 WBC MCH MCHC RDW Lymph % (Auto) Lymph # (Auto) Baso # (Auto) Seg Neutrophils % Seg Neuts % (Manual) Lymphocytes % (Manual) Seg Neutrophils # Seg Neutrophils # Man Lymphocytes # (Manual) D-Dimer ABG pH POC ABG pO2 ABG pO2 ABG HCO3 ABG O2 Saturation ABG Base Excess ABG Oxyhemoglobin ABG Sodium ABG Chloride ABG Glucose Oxyhemoglobin Carboxyhemoglobin Sodium 132 L Potassium Chloride 96.4 L Carbon Dioxide BUN 22 H Creatinine 0.3 L Glucose 228 H POC Glucose 154 H 260 H Hemoglobin A1c Ferritin AST ALT 67 H Alkaline Phosphatase Lactate Dehydrogenase C-Reactive Protein Total Protein 6.1 L Albumin 3.2 L Arterial Blood Glucose Coronavirus (PCR) 05/05/21 05/05/21 05/05/21 11:32 17:49 23:07 WBC MCH MCHC RDW Lymph % (Auto) Lymph # (Auto) Baso # (Auto) Seg Neutrophils % Seg Neuts % (Manual) Lymphocytes % (Manual) Seg Neutrophils # Seg Neutrophils # Man Lymphocytes # (Manual) D-Dimer ABG pH POC ABG pO2 ABG pO2 ABG HCO3 ABG O2 Saturation ABG Base Excess ABG Oxyhemoglobin ABG Sodium ABG Chloride ABG Glucose Oxyhemoglobin Carboxyhemoglobin Sodium Potassium Chloride Carbon Dioxide BUN Creatinine Glucose POC Glucose 279 H 308 H 213 H Hemoglobin A1c Ferritin AST ALT Alkaline Phosphatase Lactate Dehydrogenase C-Reactive Protein Total Protein Albumin Arterial Blood Glucose Coronavirus (PCR) 05/06/21 05/06/21 05/06/21 05:00 05:00 05:20 WBC MCH MCHC RDW 16.8 H Lymph % (Auto) Lymph # (Auto) Baso # (Auto) Seg Neutrophils % Seg Neuts % (Manual) 99.0 H Lymphocytes % (Manual) Seg Neutrophils # Seg Neutrophils # Man 10.9 H Lymphocytes # (Manual) 0.0 L D-Dimer ABG pH POC ABG pO2 ABG pO2 ABG HCO3 ABG O2 Saturation ABG Base Excess ABG Oxyhemoglobin ABG Sodium ABG Chloride ABG Glucose Oxyhemoglobin Carboxyhemoglobin Sodium 133 L Potassium Chloride Carbon Dioxide BUN 21 H Creatinine 0.3 L Glucose 259 H POC Glucose 308 H Hemoglobin A1c Ferritin AST ALT Alkaline Phosphatase Lactate Dehydrogenase C-Reactive Protein Total Protein Albumin 3.2 L Arterial Blood Glucose Coronavirus (PCR) 05/06/21 05/06/21 05/06/21 11:24 17:54 21:32 WBC MCH MCHC RDW Lymph % (Auto) Lymph # (Auto) Baso # (Auto) Seg Neutrophils % Seg Neuts % (Manual) Lymphocytes % (Manual) Seg Neutrophils # Seg Neutrophils # Man Lymphocytes # (Manual) D-Dimer ABG pH POC ABG pO2 ABG pO2 ABG HCO3 ABG O2 Saturation ABG Base Excess ABG Oxyhemoglobin ABG Sodium ABG Chloride ABG Glucose Oxyhemoglobin Carboxyhemoglobin Sodium Potassium Chloride Carbon Dioxide BUN Creatinine Glucose POC Glucose 262 H 124 H 246 H Hemoglobin A1c Ferritin AST ALT Alkaline Phosphatase Lactate Dehydrogenase C-Reactive Protein Total Protein Albumin Arterial Blood Glucose Coronavirus (PCR) 05/06/21 05/07/21 05/07/21 23:10 04:54 04:54 WBC MCH MCHC RDW Lymph % (Auto) Lymph # (Auto) Baso # (Auto) Seg Neutrophils % Seg Neuts % (Manual) Lymphocytes % (Manual) Seg Neutrophils # Seg Neutrophils # Man Lymphocytes # (Manual) D-Dimer 1609.28 H ABG pH POC ABG pO2 ABG pO2 ABG HCO3 ABG O2 Saturation ABG Base Excess ABG Oxyhemoglobin ABG Sodium ABG Chloride ABG Glucose Oxyhemoglobin Carboxyhemoglobin Sodium 136 L Potassium Chloride Carbon Dioxide BUN 23 H Creatinine 0.3 L Glucose 110 H POC Glucose 249 H Hemoglobin A1c Ferritin AST ALT Alkaline Phosphatase Lactate Dehydrogenase C-Reactive Protein Total Protein 6.2 L Albumin 3.0 L Arterial Blood Glucose Coronavirus (PCR) 05/07/21 05/07/21 05/07/21 04:54 04:54 11:41 WBC MCH MCHC RDW Lymph % (Auto) Lymph # (Auto) Baso # (Auto) Seg Neutrophils % Seg Neuts % (Manual) Lymphocytes % (Manual) Seg Neutrophils # Seg Neutrophils # Man Lymphocytes # (Manual) D-Dimer ABG pH POC ABG pO2 ABG pO2 ABG HCO3 ABG O2 Saturation ABG Base Excess ABG Oxyhemoglobin ABG Sodium ABG Chloride ABG Glucose Oxyhemoglobin Carboxyhemoglobin Sodium Potassium Chloride Carbon Dioxide BUN Creatinine Glucose POC Glucose 118 H Hemoglobin A1c Ferritin 296.1 H AST ALT Alkaline Phosphatase Lactate Dehydrogenase 724 H C-Reactive Protein Total Protein Albumin Arterial Blood Glucose Coronavirus (PCR) 05/07/21 05/07/21 05/08/21 16:43 22:34 06:44 WBC MCH MCHC RDW Lymph % (Auto) Lymph # (Auto) Baso # (Auto) Seg Neutrophils % Seg Neuts % (Manual) Lymphocytes % (Manual) Seg Neutrophils # Seg Neutrophils # Man Lymphocytes # (Manual) D-Dimer ABG pH POC ABG pO2 ABG pO2 ABG HCO3 ABG O2 Saturation ABG Base Excess ABG Oxyhemoglobin ABG Sodium ABG Chloride ABG Glucose Oxyhemoglobin Carboxyhemoglobin Sodium Potassium Chloride Carbon Dioxide BUN Creatinine Glucose POC Glucose 159 H 233 H 235 H Hemoglobin A1c Ferritin AST ALT Alkaline Phosphatase Lactate Dehydrogenase C-Reactive Protein Total Protein Albumin Arterial Blood Glucose Coronavirus (PCR) 05/08/21 05/08/21 05/08/21 07:49 11:56 17:13 WBC MCH MCHC RDW Lymph % (Auto) Lymph # (Auto) Baso # (Auto) Seg Neutrophils % Seg Neuts % (Manual) Lymphocytes % (Manual) Seg Neutrophils # Seg Neutrophils # Man Lymphocytes # (Manual) D-Dimer ABG pH POC ABG pO2 ABG pO2 ABG HCO3 ABG O2 Saturation ABG Base Excess ABG Oxyhemoglobin ABG Sodium ABG Chloride ABG Glucose Oxyhemoglobin Carboxyhemoglobin Sodium Potassium Chloride Carbon Dioxide BUN Creatinine Glucose POC Glucose 219 H 184 H 182 H Hemoglobin A1c Ferritin AST ALT Alkaline Phosphatase Lactate Dehydrogenase C-Reactive Protein Total Protein Albumin Arterial Blood Glucose Coronavirus (PCR) 05/08/21 05/09/21 05/09/21 23:35 05:20 05:20 WBC MCH MCHC RDW Lymph % (Auto) Lymph # (Auto) Baso # (Auto) Seg Neutrophils % Seg Neuts % (Manual) Lymphocytes % (Manual) Seg Neutrophils # Seg Neutrophils # Man Lymphocytes # (Manual) D-Dimer 1003.87 H ABG pH POC ABG pO2 ABG pO2 ABG HCO3 ABG O2 Saturation ABG Base Excess ABG Oxyhemoglobin ABG Sodium ABG Chloride ABG Glucose Oxyhemoglobin Carboxyhemoglobin Sodium Potassium Chloride Carbon Dioxide BUN Creatinine Glucose POC Glucose 198 H Hemoglobin A1c Ferritin 378.7 H AST ALT Alkaline Phosphatase Lactate Dehydrogenase C-Reactive Protein Total Protein Albumin Arterial Blood Glucose Coronavirus (PCR) 05/09/21 05/09/21 05/09/21 05:20 06:04 12:53 WBC MCH MCHC RDW Lymph % (Auto) Lymph # (Auto) Baso # (Auto) Seg Neutrophils % Seg Neuts % (Manual) Lymphocytes % (Manual) Seg Neutrophils # Seg Neutrophils # Man Lymphocytes # (Manual) D-Dimer ABG pH POC ABG pO2 ABG pO2 ABG HCO3 ABG O2 Saturation ABG Base Excess ABG Oxyhemoglobin ABG Sodium ABG Chloride ABG Glucose Oxyhemoglobin Carboxyhemoglobin Sodium Potassium Chloride Carbon Dioxide BUN Creatinine Glucose POC Glucose 159 H 180 H Hemoglobin A1c Ferritin AST ALT Alkaline Phosphatase Lactate Dehydrogenase 558 H C-Reactive Protein 2.40 H Total Protein Albumin Arterial Blood Glucose Coronavirus (PCR) 05/09/21 05/09/21 05/10/21 16:43 21:27 10:18 WBC MCH MCHC RDW Lymph % (Auto) Lymph # (Auto) Baso # (Auto) Seg Neutrophils % Seg Neuts % (Manual) Lymphocytes % (Manual) Seg Neutrophils # Seg Neutrophils # Man Lymphocytes # (Manual) D-Dimer ABG pH POC ABG pO2 ABG pO2 ABG HCO3 ABG O2 Saturation ABG Base Excess ABG Oxyhemoglobin ABG Sodium ABG Chloride ABG Glucose Oxyhemoglobin Carboxyhemoglobin Sodium Potassium Chloride Carbon Dioxide BUN Creatinine Glucose POC Glucose 212 H 285 H 261 H Hemoglobin A1c Ferritin AST ALT Alkaline Phosphatase Lactate Dehydrogenase C-Reactive Protein Total Protein Albumin Arterial Blood Glucose Coronavirus (PCR) 05/10/21 05/10/21 05/11/21 17:58 18:02 00:29 WBC MCH MCHC RDW Lymph % (Auto) Lymph # (Auto) Baso # (Auto) Seg Neutrophils % Seg Neuts % (Manual) Lymphocytes % (Manual) Seg Neutrophils # Seg Neutrophils # Man Lymphocytes # (Manual) D-Dimer ABG pH POC ABG pO2 ABG pO2 ABG HCO3 ABG O2 Saturation ABG Base Excess ABG Oxyhemoglobin ABG Sodium ABG Chloride ABG Glucose Oxyhemoglobin Carboxyhemoglobin Sodium Potassium Chloride Carbon Dioxide BUN Creatinine Glucose POC Glucose 213 H 179 H 149 H Hemoglobin A1c Ferritin AST ALT Alkaline Phosphatase Lactate Dehydrogenase C-Reactive Protein Total Protein Albumin Arterial Blood Glucose Coronavirus (PCR) 05/11/21 05/11/21 05/11/21 05:22 11:32 17:00 WBC 14.9 H MCH MCHC RDW 18.9 H Lymph % (Auto) 4.9 L Lymph # (Auto) 0.7 L Baso # (Auto) 0.2 H Seg Neutrophils % Seg Neuts % (Manual) Lymphocytes % (Manual) Seg Neutrophils # 13.3 H Seg Neutrophils # Man Lymphocytes # (Manual) D-Dimer ABG pH POC ABG pO2 ABG pO2 ABG HCO3 ABG O2 Saturation ABG Base Excess ABG Oxyhemoglobin ABG Sodium ABG Chloride ABG Glucose Oxyhemoglobin Carboxyhemoglobin Sodium Potassium Chloride Carbon Dioxide BUN Creatinine Glucose POC Glucose 162 H 179 H Hemoglobin A1c Ferritin AST ALT Alkaline Phosphatase Lactate Dehydrogenase C-Reactive Protein Total Protein Albumin Arterial Blood Glucose Coronavirus (PCR) 05/11/21 05/11/21 05/11/21 17:00 17:33 22:03 WBC MCH MCHC RDW Lymph % (Auto) Lymph # (Auto) Baso # (Auto) Seg Neutrophils % Seg Neuts % (Manual) Lymphocytes % (Manual) Seg Neutrophils # Seg Neutrophils # Man Lymphocytes # (Manual) D-Dimer ABG pH POC ABG pO2 ABG pO2 ABG HCO3 ABG O2 Saturation ABG Base Excess ABG Oxyhemoglobin ABG Sodium ABG Chloride ABG Glucose Oxyhemoglobin Carboxyhemoglobin Sodium 135 L Potassium Chloride 97.3 L Carbon Dioxide BUN 21 H Creatinine 0.3 L Glucose 133 H POC Glucose 140 H 282 H Hemoglobin A1c Ferritin AST ALT 60 H Alkaline Phosphatase Lactate Dehydrogenase C-Reactive Protein Total Protein Albumin 3.1 L Arterial Blood Glucose Coronavirus (PCR) 05/12/21 05/12/21 05/12/21 04:05 04:05 04:05 WBC MCH MCHC RDW 18.4 H Lymph % (Auto) Lymph # (Auto) Baso # (Auto) Seg Neutrophils % Seg Neuts % (Manual) 94.0 H Lymphocytes % (Manual) 4.0 L Seg Neutrophils # Seg Neutrophils # Man Lymphocytes # (Manual) 0.3 L D-Dimer ABG pH POC ABG pO2 ABG pO2 ABG HCO3 ABG O2 Saturation ABG Base Excess ABG Oxyhemoglobin ABG Sodium ABG Chloride ABG Glucose Oxyhemoglobin Carboxyhemoglobin Sodium 136 L Potassium Chloride Carbon Dioxide BUN 18 H Creatinine 0.2 L Glucose 142 H POC Glucose Hemoglobin A1c Ferritin 350.7 H AST ALT Alkaline Phosphatase Lactate Dehydrogenase 546 H C-Reactive Protein Total Protein 6.1 L Albumin 3.0 L Arterial Blood Glucose Coronavirus (PCR) 05/12/21 05/12/21 05/12/21 05:11 11:17 16:27 WBC MCH MCHC RDW Lymph % (Auto) Lymph # (Auto) Baso # (Auto) Seg Neutrophils % Seg Neuts % (Manual) Lymphocytes % (Manual) Seg Neutrophils # Seg Neutrophils # Man Lymphocytes # (Manual) D-Dimer ABG pH POC ABG pO2 ABG pO2 ABG HCO3 ABG O2 Saturation ABG Base Excess ABG Oxyhemoglobin ABG Sodium ABG Chloride ABG Glucose Oxyhemoglobin Carboxyhemoglobin Sodium Potassium Chloride Carbon Dioxide BUN Creatinine Glucose POC Glucose 152 H 190 H 261 H Hemoglobin A1c Ferritin AST ALT Alkaline Phosphatase Lactate Dehydrogenase C-Reactive Protein Total Protein Albumin Arterial Blood Glucose Coronavirus (PCR) 05/12/21 05/13/21 05/13/21 20:55 11:08 21:41 WBC MCH MCHC RDW Lymph % (Auto) Lymph # (Auto) Baso # (Auto) Seg Neutrophils % Seg Neuts % (Manual) Lymphocytes % (Manual) Seg Neutrophils # Seg Neutrophils # Man Lymphocytes # (Manual) D-Dimer ABG pH POC ABG pO2 ABG pO2 ABG HCO3 ABG O2 Saturation ABG Base Excess ABG Oxyhemoglobin ABG Sodium ABG Chloride ABG Glucose Oxyhemoglobin Carboxyhemoglobin Sodium Potassium Chloride Carbon Dioxide BUN Creatinine Glucose POC Glucose 231 H 106 H 174 H Hemoglobin A1c Ferritin AST ALT Alkaline Phosphatase Lactate Dehydrogenase C-Reactive Protein Total Protein Albumin Arterial Blood Glucose Coronavirus (PCR) 05/14/21 05/14/21 05/14/21 00:53 02:23 06:06 WBC MCH MCHC RDW Lymph % (Auto) Lymph # (Auto) Baso # (Auto) Seg Neutrophils % Seg Neuts % (Manual) Lymphocytes % (Manual) Seg Neutrophils # Seg Neutrophils # Man Lymphocytes # (Manual) D-Dimer ABG pH POC ABG pO2 ABG pO2 130.3 H ABG HCO3 30.6 H ABG O2 Saturation ABG Base Excess 4.9 H ABG Oxyhemoglobin ABG Sodium ABG Chloride ABG Glucose Oxyhemoglobin Carboxyhemoglobin Sodium Potassium Chloride Carbon Dioxide BUN Creatinine Glucose POC Glucose 229 H 119 H Hemoglobin A1c Ferritin AST ALT Alkaline Phosphatase Lactate Dehydrogenase C-Reactive Protein Total Protein Albumin Arterial Blood Glucose Coronavirus (PCR) 05/14/21 05/14/21 05/14/21 07:13 07:13 07:13 WBC MCH MCHC RDW Lymph % (Auto) Lymph # (Auto) Baso # (Auto) Seg Neutrophils % Seg Neuts % (Manual) Lymphocytes % (Manual) Seg Neutrophils # Seg Neutrophils # Man Lymphocytes # (Manual) D-Dimer 712.80 H ABG pH POC ABG pO2 ABG pO2 ABG HCO3 ABG O2 Saturation ABG Base Excess ABG Oxyhemoglobin ABG Sodium ABG Chloride ABG Glucose Oxyhemoglobin Carboxyhemoglobin Sodium 133 L Potassium Chloride 95.5 L Carbon Dioxide 32 H BUN Creatinine 0.2 L Glucose 137 H POC Glucose Hemoglobin A1c Ferritin 283.5 H AST ALT 63 H Alkaline Phosphatase Lactate Dehydrogenase 563 H C-Reactive Protein Total Protein 6.1 L Albumin 3.0 L Arterial Blood Glucose Coronavirus (PCR) 05/14/21 05/14/21 05/14/21 12:21 15:33 21:50 WBC MCH MCHC RDW Lymph % (Auto) Lymph # (Auto) Baso # (Auto) Seg Neutrophils % Seg Neuts % (Manual) Lymphocytes % (Manual) Seg Neutrophils # Seg Neutrophils # Man Lymphocytes # (Manual) D-Dimer ABG pH POC ABG pO2 ABG pO2 ABG HCO3 ABG O2 Saturation ABG Base Excess ABG Oxyhemoglobin ABG Sodium ABG Chloride ABG Glucose Oxyhemoglobin Carboxyhemoglobin Sodium Potassium Chloride Carbon Dioxide BUN Creatinine Glucose POC Glucose 143 H 204 H 202 H Hemoglobin A1c Ferritin AST ALT Alkaline Phosphatase Lactate Dehydrogenase C-Reactive Protein Total Protein Albumin Arterial Blood Glucose Coronavirus (PCR) 05/15/21 05/15/21 05/15/21 05:05 11:12 16:39 WBC MCH MCHC RDW Lymph % (Auto) Lymph # (Auto) Baso # (Auto) Seg Neutrophils % Seg Neuts % (Manual) Lymphocytes % (Manual) Seg Neutrophils # Seg Neutrophils # Man Lymphocytes # (Manual) D-Dimer ABG pH POC ABG pO2 ABG pO2 ABG HCO3 ABG O2 Saturation ABG Base Excess ABG Oxyhemoglobin ABG Sodium ABG Chloride ABG Glucose Oxyhemoglobin Carboxyhemoglobin Sodium Potassium Chloride Carbon Dioxide BUN Creatinine Glucose POC Glucose 125 H 201 H 241 H Hemoglobin A1c Ferritin AST ALT Alkaline Phosphatase Lactate Dehydrogenase C-Reactive Protein Total Protein Albumin Arterial Blood Glucose Coronavirus (PCR) 05/15/21 05/16/21 05/16/21 21:31 05:04 10:40 WBC MCH MCHC RDW Lymph % (Auto) Lymph # (Auto) Baso # (Auto) Seg Neutrophils % Seg Neuts % (Manual) Lymphocytes % (Manual) Seg Neutrophils # Seg Neutrophils # Man Lymphocytes # (Manual) D-Dimer ABG pH POC ABG pO2 ABG pO2 ABG HCO3 ABG O2 Saturation ABG Base Excess ABG Oxyhemoglobin ABG Sodium ABG Chloride ABG Glucose Oxyhemoglobin Carboxyhemoglobin Sodium Potassium Chloride Carbon Dioxide BUN Creatinine Glucose POC Glucose 234 H 123 H 231 H Hemoglobin A1c Ferritin AST ALT Alkaline Phosphatase Lactate Dehydrogenase C-Reactive Protein Total Protein Albumin Arterial Blood Glucose Coronavirus (PCR) 05/16/21 05/16/21 05/17/21 18:23 21:29 06:20 WBC MCH MCHC RDW 18.8 H Lymph % (Auto) 10.2 L Lymph # (Auto) 0.8 L Baso # (Auto) Seg Neutrophils % 85.8 H Seg Neuts % (Manual) Lymphocytes % (Manual) Seg Neutrophils # Seg Neutrophils # Man Lymphocytes # (Manual) D-Dimer ABG pH POC ABG pO2 ABG pO2 ABG HCO3 ABG O2 Saturation ABG Base Excess ABG Oxyhemoglobin ABG Sodium ABG Chloride ABG Glucose Oxyhemoglobin Carboxyhemoglobin Sodium Potassium Chloride Carbon Dioxide BUN Creatinine Glucose POC Glucose 266 H 234 H Hemoglobin A1c Ferritin AST ALT Alkaline Phosphatase Lactate Dehydrogenase C-Reactive Protein Total Protein Albumin Arterial Blood Glucose Coronavirus (PCR) 05/17/21 05/17/21 05/17/21 06:20 11:06 16:36 WBC MCH MCHC RDW Lymph % (Auto) Lymph # (Auto) Baso # (Auto) Seg Neutrophils % Seg Neuts % (Manual) Lymphocytes % (Manual) Seg Neutrophils # Seg Neutrophils # Man Lymphocytes # (Manual) D-Dimer ABG pH POC ABG pO2 ABG pO2 ABG HCO3 ABG O2 Saturation ABG Base Excess ABG Oxyhemoglobin ABG Sodium ABG Chloride ABG Glucose Oxyhemoglobin Carboxyhemoglobin Sodium Potassium Chloride Carbon Dioxide 33 H BUN Creatinine 0.2 L Glucose 101 H POC Glucose 209 H 180 H Hemoglobin A1c Ferritin AST ALT Alkaline Phosphatase Lactate Dehydrogenase C-Reactive Protein Total Protein Albumin Arterial Blood Glucose Coronavirus (PCR) 05/17/21 05/18/21 05/18/21 21:06 12:00 15:06 WBC MCH MCHC RDW Lymph % (Auto) Lymph # (Auto) Baso # (Auto) Seg Neutrophils % Seg Neuts % (Manual) Lymphocytes % (Manual) Seg Neutrophils # Seg Neutrophils # Man Lymphocytes # (Manual) D-Dimer 874.02 H ABG pH POC ABG pO2 ABG pO2 ABG HCO3 ABG O2 Saturation ABG Base Excess ABG Oxyhemoglobin ABG Sodium ABG Chloride ABG Glucose Oxyhemoglobin Carboxyhemoglobin Sodium Potassium Chloride Carbon Dioxide BUN Creatinine Glucose POC Glucose 256 H 139 H Hemoglobin A1c Ferritin AST ALT Alkaline Phosphatase Lactate Dehydrogenase C-Reactive Protein Total Protein Albumin Arterial Blood Glucose Coronavirus (PCR) 05/18/21 05/18/21 05/18/21 15:06 15:06 16:08 WBC MCH MCHC RDW Lymph % (Auto) Lymph # (Auto) Baso # (Auto) Seg Neutrophils % Seg Neuts % (Manual) Lymphocytes % (Manual) Seg Neutrophils # Seg Neutrophils # Man Lymphocytes # (Manual) D-Dimer ABG pH POC ABG pO2 ABG pO2 ABG HCO3 ABG O2 Saturation ABG Base Excess ABG Oxyhemoglobin ABG Sodium ABG Chloride ABG Glucose Oxyhemoglobin Carboxyhemoglobin Sodium Potassium Chloride Carbon Dioxide BUN Creatinine Glucose POC Glucose 178 H Hemoglobin A1c Ferritin 289.6 H AST ALT Alkaline Phosphatase Lactate Dehydrogenase 605 H C-Reactive Protein Total Protein Albumin Arterial Blood Glucose Coronavirus (PCR) 05/18/21 05/19/21 05/19/21 21:22 11:57 15:26 WBC MCH MCHC RDW Lymph % (Auto) Lymph # (Auto) Baso # (Auto) Seg Neutrophils % Seg Neuts % (Manual) Lymphocytes % (Manual) Seg Neutrophils # Seg Neutrophils # Man Lymphocytes # (Manual) D-Dimer ABG pH POC ABG pO2 ABG pO2 ABG HCO3 ABG O2 Saturation ABG Base Excess ABG Oxyhemoglobin ABG Sodium ABG Chloride ABG Glucose Oxyhemoglobin Carboxyhemoglobin Sodium Potassium Chloride Carbon Dioxide BUN Creatinine Glucose POC Glucose 241 H 201 H 209 H Hemoglobin A1c Ferritin AST ALT Alkaline Phosphatase Lactate Dehydrogenase C-Reactive Protein Total Protein Albumin Arterial Blood Glucose Coronavirus (PCR) 05/19/21 05/20/21 05/20/21 20:59 07:38 08:01 WBC MCH MCHC RDW 19.7 H Lymph % (Auto) 8.3 L Lymph # (Auto) 0.8 L Baso # (Auto) Seg Neutrophils % 88.6 H Seg Neuts % (Manual) Lymphocytes % (Manual) Seg Neutrophils # 8.4 H Seg Neutrophils # Man Lymphocytes # (Manual) D-Dimer ABG pH POC ABG pO2 ABG pO2 ABG HCO3 ABG O2 Saturation ABG Base Excess ABG Oxyhemoglobin ABG Sodium ABG Chloride ABG Glucose Oxyhemoglobin Carboxyhemoglobin Sodium Potassium Chloride Carbon Dioxide BUN Creatinine Glucose POC Glucose 226 H 130 H Hemoglobin A1c Ferritin AST ALT Alkaline Phosphatase Lactate Dehydrogenase C-Reactive Protein Total Protein Albumin Arterial Blood Glucose Coronavirus (PCR) 05/20/21 05/20/21 05/20/21 08:01 11:00 16:43 WBC MCH MCHC RDW Lymph % (Auto) Lymph # (Auto) Baso # (Auto) Seg Neutrophils % Seg Neuts % (Manual) Lymphocytes % (Manual) Seg Neutrophils # Seg Neutrophils # Man Lymphocytes # (Manual) D-Dimer ABG pH POC ABG pO2 ABG pO2 ABG HCO3 ABG O2 Saturation ABG Base Excess ABG Oxyhemoglobin ABG Sodium ABG Chloride ABG Glucose Oxyhemoglobin Carboxyhemoglobin Sodium Potassium Chloride Carbon Dioxide BUN 18 H Creatinine 0.2 L Glucose 132 H POC Glucose 237 H 240 H Hemoglobin A1c Ferritin AST ALT Alkaline Phosphatase Lactate Dehydrogenase C-Reactive Protein Total Protein Albumin Arterial Blood Glucose Coronavirus (PCR) 05/20/21 05/21/21 05/21/21 21:21 07:35 11:32 WBC MCH MCHC RDW Lymph % (Auto) Lymph # (Auto) Baso # (Auto) Seg Neutrophils % Seg Neuts % (Manual) Lymphocytes % (Manual) Seg Neutrophils # Seg Neutrophils # Man Lymphocytes # (Manual) D-Dimer ABG pH POC ABG pO2 ABG pO2 ABG HCO3 ABG O2 Saturation ABG Base Excess ABG Oxyhemoglobin ABG Sodium ABG Chloride ABG Glucose Oxyhemoglobin Carboxyhemoglobin Sodium Potassium Chloride Carbon Dioxide BUN Creatinine Glucose POC Glucose 241 H 162 H 171 H Hemoglobin A1c Ferritin AST ALT Alkaline Phosphatase Lactate Dehydrogenase C-Reactive Protein Total Protein Albumin Arterial Blood Glucose Coronavirus (PCR) 05/21/21 05/21/21 05/22/21 16:22 20:43 05:14 WBC MCH MCHC RDW Lymph % (Auto) Lymph # (Auto) Baso # (Auto) Seg Neutrophils % Seg Neuts % (Manual) Lymphocytes % (Manual) Seg Neutrophils # Seg Neutrophils # Man Lymphocytes # (Manual) D-Dimer ABG pH POC ABG pO2 ABG pO2 ABG HCO3 ABG O2 Saturation ABG Base Excess ABG Oxyhemoglobin ABG Sodium ABG Chloride ABG Glucose Oxyhemoglobin Carboxyhemoglobin Sodium Potassium Chloride Carbon Dioxide BUN Creatinine Glucose POC Glucose 244 H 299 H 140 H Hemoglobin A1c Ferritin AST ALT Alkaline Phosphatase Lactate Dehydrogenase C-Reactive Protein Total Protein Albumin Arterial Blood Glucose Coronavirus (PCR) 05/22/21 05/22/21 05/22/21 08:45 11:54 16:15 WBC MCH MCHC RDW Lymph % (Auto) Lymph # (Auto) Baso # (Auto) Seg Neutrophils % Seg Neuts % (Manual) Lymphocytes % (Manual) Seg Neutrophils # Seg Neutrophils # Man Lymphocytes # (Manual) D-Dimer ABG pH POC ABG pO2 ABG pO2 ABG HCO3 ABG O2 Saturation ABG Base Excess ABG Oxyhemoglobin ABG Sodium ABG Chloride ABG Glucose Oxyhemoglobin Carboxyhemoglobin Sodium Potassium Chloride Carbon Dioxide BUN Creatinine Glucose POC Glucose 133 H 265 H 221 H Hemoglobin A1c Ferritin AST ALT Alkaline Phosphatase Lactate Dehydrogenase C-Reactive Protein Total Protein Albumin Arterial Blood Glucose Coronavirus (PCR) 05/22/21 05/23/21 05/23/21 21:43 08:20 09:50 WBC MCH MCHC RDW Lymph % (Auto) Lymph # (Auto) Baso # (Auto) Seg Neutrophils % Seg Neuts % (Manual) Lymphocytes % (Manual) Seg Neutrophils # Seg Neutrophils # Man Lymphocytes # (Manual) D-Dimer 910.38 H ABG pH POC ABG pO2 ABG pO2 ABG HCO3 ABG O2 Saturation ABG Base Excess ABG Oxyhemoglobin ABG Sodium ABG Chloride ABG Glucose Oxyhemoglobin Carboxyhemoglobin Sodium Potassium Chloride Carbon Dioxide BUN Creatinine Glucose POC Glucose 262 H 140 H Hemoglobin A1c Ferritin AST ALT Alkaline Phosphatase Lactate Dehydrogenase C-Reactive Protein Total Protein Albumin Arterial Blood Glucose Coronavirus (PCR) 05/23/21 05/23/21 05/23/21 09:50 09:50 10:52 WBC MCH MCHC RDW Lymph % (Auto) Lymph # (Auto) Baso # (Auto) Seg Neutrophils % Seg Neuts % (Manual) Lymphocytes % (Manual) Seg Neutrophils # Seg Neutrophils # Man Lymphocytes # (Manual) D-Dimer ABG pH POC ABG pO2 ABG pO2 ABG HCO3 ABG O2 Saturation ABG Base Excess ABG Oxyhemoglobin ABG Sodium ABG Chloride ABG Glucose Oxyhemoglobin Carboxyhemoglobin Sodium Potassium Chloride Carbon Dioxide BUN Creatinine Glucose POC Glucose 241 H Hemoglobin A1c Ferritin 244.9 H AST ALT Alkaline Phosphatase Lactate Dehydrogenase 584 H C-Reactive Protein Total Protein Albumin Arterial Blood Glucose Coronavirus (PCR) 05/23/21 05/23/21 05/24/21 17:24 21:52 07:44 WBC MCH MCHC RDW Lymph % (Auto) Lymph # (Auto) Baso # (Auto) Seg Neutrophils % Seg Neuts % (Manual) Lymphocytes % (Manual) Seg Neutrophils # Seg Neutrophils # Man Lymphocytes # (Manual) D-Dimer ABG pH POC ABG pO2 ABG pO2 ABG HCO3 ABG O2 Saturation ABG Base Excess ABG Oxyhemoglobin ABG Sodium ABG Chloride ABG Glucose Oxyhemoglobin Carboxyhemoglobin Sodium Potassium Chloride Carbon Dioxide BUN Creatinine Glucose POC Glucose 197 H 289 H 161 H Hemoglobin A1c Ferritin AST ALT Alkaline Phosphatase Lactate Dehydrogenase C-Reactive Protein Total Protein Albumin Arterial Blood Glucose Coronavirus (PCR) 05/24/21 05/24/21 05/24/21 11:17 17:51 21:26 WBC MCH MCHC RDW Lymph % (Auto) Lymph # (Auto) Baso # (Auto) Seg Neutrophils % Seg Neuts % (Manual) Lymphocytes % (Manual) Seg Neutrophils # Seg Neutrophils # Man Lymphocytes # (Manual) D-Dimer ABG pH POC ABG pO2 ABG pO2 ABG HCO3 ABG O2 Saturation ABG Base Excess ABG Oxyhemoglobin ABG Sodium ABG Chloride ABG Glucose Oxyhemoglobin Carboxyhemoglobin Sodium Potassium Chloride Carbon Dioxide BUN Creatinine Glucose POC Glucose 308 H 175 H 198 H Hemoglobin A1c Ferritin AST ALT Alkaline Phosphatase Lactate Dehydrogenase C-Reactive Protein Total Protein Albumin Arterial Blood Glucose Coronavirus (PCR) 05/25/21 05/25/21 05/25/21 08:14 11:13 17:13 WBC MCH MCHC RDW Lymph % (Auto) Lymph # (Auto) Baso # (Auto) Seg Neutrophils % Seg Neuts % (Manual) Lymphocytes % (Manual) Seg Neutrophils # Seg Neutrophils # Man Lymphocytes # (Manual) D-Dimer ABG pH POC ABG pO2 ABG pO2 ABG HCO3 ABG O2 Saturation ABG Base Excess ABG Oxyhemoglobin ABG Sodium ABG Chloride ABG Glucose Oxyhemoglobin Carboxyhemoglobin Sodium Potassium Chloride Carbon Dioxide BUN Creatinine Glucose POC Glucose 203 H 339 H 235 H Hemoglobin A1c Ferritin AST ALT Alkaline Phosphatase Lactate Dehydrogenase C-Reactive Protein Total Protein Albumin Arterial Blood Glucose Coronavirus (PCR) 05/25/21 05/26/21 05/26/21 21:03 07:33 11:19 WBC MCH MCHC RDW Lymph % (Auto) Lymph # (Auto) Baso # (Auto) Seg Neutrophils % Seg Neuts % (Manual) Lymphocytes % (Manual) Seg Neutrophils # Seg Neutrophils # Man Lymphocytes # (Manual) D-Dimer ABG pH POC ABG pO2 ABG pO2 ABG HCO3 ABG O2 Saturation ABG Base Excess ABG Oxyhemoglobin ABG Sodium ABG Chloride ABG Glucose Oxyhemoglobin Carboxyhemoglobin Sodium Potassium Chloride Carbon Dioxide BUN Creatinine Glucose POC Glucose 263 H 156 H 288 H Hemoglobin A1c Ferritin AST ALT Alkaline Phosphatase Lactate Dehydrogenase C-Reactive Protein Total Protein Albumin Arterial Blood Glucose Coronavirus (PCR) 05/26/21 05/26/21 05/27/21 16:26 20:55 07:38 WBC MCH MCHC RDW Lymph % (Auto) Lymph # (Auto) Baso # (Auto) Seg Neutrophils % Seg Neuts % (Manual) Lymphocytes % (Manual) Seg Neutrophils # Seg Neutrophils # Man Lymphocytes # (Manual) D-Dimer ABG pH POC ABG pO2 ABG pO2 ABG HCO3 ABG O2 Saturation ABG Base Excess ABG Oxyhemoglobin ABG Sodium ABG Chloride ABG Glucose Oxyhemoglobin Carboxyhemoglobin Sodium Potassium Chloride Carbon Dioxide BUN Creatinine Glucose POC Glucose 286 H 293 H 115 H Hemoglobin A1c Ferritin AST ALT Alkaline Phosphatase Lactate Dehydrogenase C-Reactive Protein Total Protein Albumin Arterial Blood Glucose Coronavirus (PCR) 05/27/21 05/27/21 05/27/21 11:46 15:58 21:02 WBC MCH MCHC RDW Lymph % (Auto) Lymph # (Auto) Baso # (Auto) Seg Neutrophils % Seg Neuts % (Manual) Lymphocytes % (Manual) Seg Neutrophils # Seg Neutrophils # Man Lymphocytes # (Manual) D-Dimer ABG pH POC ABG pO2 ABG pO2 ABG HCO3 ABG O2 Saturation ABG Base Excess ABG Oxyhemoglobin ABG Sodium ABG Chloride ABG Glucose Oxyhemoglobin Carboxyhemoglobin Sodium Potassium Chloride Carbon Dioxide BUN Creatinine Glucose POC Glucose 260 H 318 H 246 H Hemoglobin A1c Ferritin AST ALT Alkaline Phosphatase Lactate Dehydrogenase C-Reactive Protein Total Protein Albumin Arterial Blood Glucose Coronavirus (PCR) 05/28/21 05/28/21 05/28/21 07:34 11:31 16:36 WBC MCH MCHC RDW Lymph % (Auto) Lymph # (Auto) Baso # (Auto) Seg Neutrophils % Seg Neuts % (Manual) Lymphocytes % (Manual) Seg Neutrophils # Seg Neutrophils # Man Lymphocytes # (Manual) D-Dimer ABG pH POC ABG pO2 ABG pO2 ABG HCO3 ABG O2 Saturation ABG Base Excess ABG Oxyhemoglobin ABG Sodium ABG Chloride ABG Glucose Oxyhemoglobin Carboxyhemoglobin Sodium Potassium Chloride Carbon Dioxide BUN Creatinine Glucose POC Glucose 185 H 297 H 183 H Hemoglobin A1c Ferritin AST ALT Alkaline Phosphatase Lactate Dehydrogenase C-Reactive Protein Total Protein Albumin Arterial Blood Glucose Coronavirus (PCR) 05/28/21 05/29/21 05/29/21 21:19 07:34 11:19 WBC MCH MCHC RDW Lymph % (Auto) Lymph # (Auto) Baso # (Auto) Seg Neutrophils % Seg Neuts % (Manual) Lymphocytes % (Manual) Seg Neutrophils # Seg Neutrophils # Man Lymphocytes # (Manual) D-Dimer ABG pH POC ABG pO2 ABG pO2 ABG HCO3 ABG O2 Saturation ABG Base Excess ABG Oxyhemoglobin ABG Sodium ABG Chloride ABG Glucose Oxyhemoglobin Carboxyhemoglobin Sodium Potassium Chloride Carbon Dioxide BUN Creatinine Glucose POC Glucose 274 H 139 H 293 H Hemoglobin A1c Ferritin AST ALT Alkaline Phosphatase Lactate Dehydrogenase C-Reactive Protein Total Protein Albumin Arterial Blood Glucose Coronavirus (PCR) 05/29/21 05/29/21 05/30/21 16:36 22:44 05:55 WBC MCH MCHC RDW 21.3 H Lymph % (Auto) 8.0 L Lymph # (Auto) 0.6 L Baso # (Auto) Seg Neutrophils % 88.6 H Seg Neuts % (Manual) Lymphocytes % (Manual) Seg Neutrophils # Seg Neutrophils # Man Lymphocytes # (Manual) D-Dimer ABG pH POC ABG pO2 ABG pO2 ABG HCO3 ABG O2 Saturation ABG Base Excess ABG Oxyhemoglobin ABG Sodium ABG Chloride ABG Glucose Oxyhemoglobin Carboxyhemoglobin Sodium Potassium Chloride Carbon Dioxide BUN Creatinine Glucose POC Glucose 299 H 160 H Hemoglobin A1c Ferritin AST ALT Alkaline Phosphatase Lactate Dehydrogenase C-Reactive Protein Total Protein Albumin Arterial Blood Glucose Coronavirus (PCR) 05/30/21 05/30/21 05/30/21 05:55 08:04 11:13 WBC MCH MCHC RDW Lymph % (Auto) Lymph # (Auto) Baso # (Auto) Seg Neutrophils % Seg Neuts % (Manual) Lymphocytes % (Manual) Seg Neutrophils # Seg Neutrophils # Man Lymphocytes # (Manual) D-Dimer ABG pH POC ABG pO2 ABG pO2 ABG HCO3 ABG O2 Saturation ABG Base Excess ABG Oxyhemoglobin ABG Sodium ABG Chloride ABG Glucose Oxyhemoglobin Carboxyhemoglobin Sodium Potassium Chloride Carbon Dioxide BUN 19 H Creatinine 0.2 L Glucose 209 H POC Glucose 157 H 275 H Hemoglobin A1c Ferritin AST ALT Alkaline Phosphatase Lactate Dehydrogenase C-Reactive Protein Total Protein Albumin Arterial Blood Glucose Coronavirus (PCR) 05/30/21 05/30/21 05/31/21 17:08 22:12 07:36 WBC MCH MCHC RDW Lymph % (Auto) Lymph # (Auto) Baso # (Auto) Seg Neutrophils % Seg Neuts % (Manual) Lymphocytes % (Manual) Seg Neutrophils # Seg Neutrophils # Man Lymphocytes # (Manual) D-Dimer ABG pH POC ABG pO2 ABG pO2 ABG HCO3 ABG O2 Saturation ABG Base Excess ABG Oxyhemoglobin ABG Sodium ABG Chloride ABG Glucose Oxyhemoglobin Carboxyhemoglobin Sodium Potassium Chloride Carbon Dioxide BUN Creatinine Glucose POC Glucose 154 H 275 H 138 H Hemoglobin A1c Ferritin AST ALT Alkaline Phosphatase Lactate Dehydrogenase C-Reactive Protein Total Protein Albumin Arterial Blood Glucose Coronavirus (PCR) 05/31/21 05/31/21 05/31/21 11:17 16:55 21:25 WBC MCH MCHC RDW Lymph % (Auto) Lymph # (Auto) Baso # (Auto) Seg Neutrophils % Seg Neuts % (Manual) Lymphocytes % (Manual) Seg Neutrophils # Seg Neutrophils # Man Lymphocytes # (Manual) D-Dimer ABG pH POC ABG pO2 ABG pO2 ABG HCO3 ABG O2 Saturation ABG Base Excess ABG Oxyhemoglobin ABG Sodium ABG Chloride ABG Glucose Oxyhemoglobin Carboxyhemoglobin Sodium Potassium Chloride Carbon Dioxide BUN Creatinine Glucose POC Glucose 258 H 215 H 318 H Hemoglobin A1c Ferritin AST ALT Alkaline Phosphatase Lactate Dehydrogenase C-Reactive Protein Total Protein Albumin Arterial Blood Glucose Coronavirus (PCR) 06/01/21 06/01/21 06/01/21 07:23 11:38 16:52 WBC MCH MCHC RDW Lymph % (Auto) Lymph # (Auto) Baso # (Auto) Seg Neutrophils % Seg Neuts % (Manual) Lymphocytes % (Manual) Seg Neutrophils # Seg Neutrophils # Man Lymphocytes # (Manual) D-Dimer ABG pH POC ABG pO2 ABG pO2 ABG HCO3 ABG O2 Saturation ABG Base Excess ABG Oxyhemoglobin ABG Sodium ABG Chloride ABG Glucose Oxyhemoglobin Carboxyhemoglobin Sodium Potassium Chloride Carbon Dioxide BUN Creatinine Glucose POC Glucose 157 H 259 H 150 H Hemoglobin A1c Ferritin AST ALT Alkaline Phosphatase Lactate Dehydrogenase C-Reactive Protein Total Protein Albumin Arterial Blood Glucose Coronavirus (PCR) 06/01/21 06/02/21 06/02/21 23:16 05:34 05:34 WBC MCH MCHC RDW 21.3 H Lymph % (Auto) 9.6 L Lymph # (Auto) 0.6 L Baso # (Auto) Seg Neutrophils % 86.2 H Seg Neuts % (Manual) Lymphocytes % (Manual) Seg Neutrophils # Seg Neutrophils # Man Lymphocytes # (Manual) D-Dimer ABG pH POC ABG pO2 ABG pO2 ABG HCO3 ABG O2 Saturation ABG Base Excess ABG Oxyhemoglobin ABG Sodium ABG Chloride ABG Glucose Oxyhemoglobin Carboxyhemoglobin Sodium 136 L Potassium Chloride Carbon Dioxide BUN Creatinine 0.2 L Glucose 186 H POC Glucose 247 H Hemoglobin A1c Ferritin AST ALT 69 H Alkaline Phosphatase Lactate Dehydrogenase C-Reactive Protein Total Protein 6.1 L Albumin 3.2 L Arterial Blood Glucose Coronavirus (PCR) 06/02/21 06/02/21 06/02/21 11:25 18:23 21:32 WBC MCH MCHC RDW Lymph % (Auto) Lymph # (Auto) Baso # (Auto) Seg Neutrophils % Seg Neuts % (Manual) Lymphocytes % (Manual) Seg Neutrophils # Seg Neutrophils # Man Lymphocytes # (Manual) D-Dimer ABG pH POC ABG pO2 ABG pO2 ABG HCO3 ABG O2 Saturation ABG Base Excess ABG Oxyhemoglobin ABG Sodium ABG Chloride ABG Glucose Oxyhemoglobin Carboxyhemoglobin Sodium Potassium Chloride Carbon Dioxide BUN Creatinine Glucose POC Glucose 157 H 299 H 246 H Hemoglobin A1c Ferritin AST ALT Alkaline Phosphatase Lactate Dehydrogenase C-Reactive Protein Total Protein Albumin Arterial Blood Glucose Coronavirus (PCR) 06/03/21 06/03/21 06/03/21 08:12 12:21 17:31 WBC MCH MCHC RDW Lymph % (Auto) Lymph # (Auto) Baso # (Auto) Seg Neutrophils % Seg Neuts % (Manual) Lymphocytes % (Manual) Seg Neutrophils # Seg Neutrophils # Man Lymphocytes # (Manual) D-Dimer ABG pH POC ABG pO2 ABG pO2 ABG HCO3 ABG O2 Saturation ABG Base Excess ABG Oxyhemoglobin ABG Sodium ABG Chloride ABG Glucose Oxyhemoglobin Carboxyhemoglobin Sodium Potassium Chloride Carbon Dioxide BUN Creatinine Glucose POC Glucose 153 H 302 H 252 H Hemoglobin A1c Ferritin AST ALT Alkaline Phosphatase Lactate Dehydrogenase C-Reactive Protein Total Protein Albumin Arterial Blood Glucose Coronavirus (PCR) 06/03/21 06/04/21 06/04/21 22:08 11:12 16:01 WBC MCH MCHC RDW Lymph % (Auto) Lymph # (Auto) Baso # (Auto) Seg Neutrophils % Seg Neuts % (Manual) Lymphocytes % (Manual) Seg Neutrophils # Seg Neutrophils # Man Lymphocytes # (Manual) D-Dimer ABG pH POC ABG pO2 ABG pO2 ABG HCO3 ABG O2 Saturation ABG Base Excess ABG Oxyhemoglobin ABG Sodium ABG Chloride ABG Glucose Oxyhemoglobin Carboxyhemoglobin Sodium Potassium Chloride Carbon Dioxide BUN Creatinine Glucose POC Glucose 224 H 259 H 238 H Hemoglobin A1c Ferritin AST ALT Alkaline Phosphatase Lactate Dehydrogenase C-Reactive Protein Total Protein Albumin Arterial Blood Glucose Coronavirus (PCR) 06/04/21 06/05/21 06/05/21 21:26 05:26 05:26 WBC MCH MCHC RDW Lymph % (Auto) Lymph # (Auto) Baso # (Auto) Seg Neutrophils % Seg Neuts % (Manual) Lymphocytes % (Manual) Seg Neutrophils # Seg Neutrophils # Man Lymphocytes # (Manual) D-Dimer 488.49 H ABG pH POC ABG pO2 ABG pO2 ABG HCO3 ABG O2 Saturation ABG Base Excess ABG Oxyhemoglobin ABG Sodium ABG Chloride ABG Glucose Oxyhemoglobin Carboxyhemoglobin Sodium Potassium Chloride Carbon Dioxide BUN Creatinine 0.2 L Glucose 198 H POC Glucose 257 H Hemoglobin A1c Ferritin AST ALT Alkaline Phosphatase Lactate Dehydrogenase 475 H C-Reactive Protein Total Protein Albumin Arterial Blood Glucose Coronavirus (PCR) 06/05/21 06/05/21 06/05/21 07:20 08:30 11:00 WBC MCH MCHC RDW Lymph % (Auto) Lymph # (Auto) Baso # (Auto) Seg Neutrophils % Seg Neuts % (Manual) Lymphocytes % (Manual) Seg Neutrophils # Seg Neutrophils # Man Lymphocytes # (Manual) D-Dimer ABG pH POC ABG pO2 ABG pO2 ABG HCO3 ABG O2 Saturation ABG Base Excess ABG Oxyhemoglobin ABG Sodium ABG Chloride ABG Glucose Oxyhemoglobin Carboxyhemoglobin Sodium Potassium Chloride Carbon Dioxide BUN Creatinine Glucose POC Glucose 146 H 246 H Hemoglobin A1c Ferritin AST ALT Alkaline Phosphatase Lactate Dehydrogenase C-Reactive Protein Total Protein Albumin Arterial Blood Glucose Coronavirus (PCR) Positive A 06/05/21 06/05/21 06/06/21 16:50 22:30 07:57 WBC MCH MCHC RDW Lymph % (Auto) Lymph # (Auto) Baso # (Auto) Seg Neutrophils % Seg Neuts % (Manual) Lymphocytes % (Manual) Seg Neutrophils # Seg Neutrophils # Man Lymphocytes # (Manual) D-Dimer ABG pH POC ABG pO2 ABG pO2 ABG HCO3 ABG O2 Saturation ABG Base Excess ABG Oxyhemoglobin ABG Sodium ABG Chloride ABG Glucose Oxyhemoglobin Carboxyhemoglobin Sodium Potassium Chloride Carbon Dioxide BUN Creatinine Glucose POC Glucose 240 H 174 H 120 H Hemoglobin A1c Ferritin AST ALT Alkaline Phosphatase Lactate Dehydrogenase C-Reactive Protein Total Protein Albumin Arterial Blood Glucose Coronavirus (PCR) 06/06/21 06/06/21 06/06/21 11:14 16:50 21:11 WBC MCH MCHC RDW Lymph % (Auto) Lymph # (Auto) Baso # (Auto) Seg Neutrophils % Seg Neuts % (Manual) Lymphocytes % (Manual) Seg Neutrophils # Seg Neutrophils # Man Lymphocytes # (Manual) D-Dimer ABG pH POC ABG pO2 ABG pO2 ABG HCO3 ABG O2 Saturation ABG Base Excess ABG Oxyhemoglobin ABG Sodium ABG Chloride ABG Glucose Oxyhemoglobin Carboxyhemoglobin Sodium Potassium Chloride Carbon Dioxide BUN Creatinine Glucose POC Glucose 267 H 218 H 124 H Hemoglobin A1c Ferritin AST ALT Alkaline Phosphatase Lactate Dehydrogenase C-Reactive Protein Total Protein Albumin Arterial Blood Glucose Coronavirus (PCR) 06/07/21 06/07/21 06/08/21 11:58 15:59 07:59 WBC MCH MCHC RDW Lymph % (Auto) Lymph # (Auto) Baso # (Auto) Seg Neutrophils % Seg Neuts % (Manual) Lymphocytes % (Manual) Seg Neutrophils # Seg Neutrophils # Man Lymphocytes # (Manual) D-Dimer ABG pH POC ABG pO2 ABG pO2 ABG HCO3 ABG O2 Saturation ABG Base Excess ABG Oxyhemoglobin ABG Sodium ABG Chloride ABG Glucose Oxyhemoglobin Carboxyhemoglobin Sodium Potassium Chloride Carbon Dioxide BUN Creatinine Glucose POC Glucose 219 H 208 H 192 H Hemoglobin A1c Ferritin AST ALT Alkaline Phosphatase Lactate Dehydrogenase C-Reactive Protein Total Protein Albumin Arterial Blood Glucose Coronavirus (PCR) 06/08/21 06/08/21 06/09/21 11:26 23:28 07:33 WBC MCH MCHC RDW Lymph % (Auto) Lymph # (Auto) Baso # (Auto) Seg Neutrophils % Seg Neuts % (Manual) Lymphocytes % (Manual) Seg Neutrophils # Seg Neutrophils # Man Lymphocytes # (Manual) D-Dimer ABG pH POC ABG pO2 ABG pO2 ABG HCO3 ABG O2 Saturation ABG Base Excess ABG Oxyhemoglobin ABG Sodium ABG Chloride ABG Glucose Oxyhemoglobin Carboxyhemoglobin Sodium Potassium Chloride Carbon Dioxide BUN Creatinine Glucose POC Glucose 307 H 138 H 145 H Hemoglobin A1c Ferritin AST ALT Alkaline Phosphatase Lactate Dehydrogenase C-Reactive Protein Total Protein Albumin Arterial Blood Glucose Coronavirus (PCR) 06/09/21 06/09/21 06/09/21 11:01 15:47 21:43 WBC MCH MCHC RDW Lymph % (Auto) Lymph # (Auto) Baso # (Auto) Seg Neutrophils % Seg Neuts % (Manual) Lymphocytes % (Manual) Seg Neutrophils # Seg Neutrophils # Man Lymphocytes # (Manual) D-Dimer ABG pH POC ABG pO2 ABG pO2 ABG HCO3 ABG O2 Saturation ABG Base Excess ABG Oxyhemoglobin ABG Sodium ABG Chloride ABG Glucose Oxyhemoglobin Carboxyhemoglobin Sodium Potassium Chloride Carbon Dioxide BUN Creatinine Glucose POC Glucose 266 H 305 H 223 H Hemoglobin A1c Ferritin AST ALT Alkaline Phosphatase Lactate Dehydrogenase C-Reactive Protein Total Protein Albumin Arterial Blood Glucose Coronavirus (PCR) 06/10/21 06/10/21 06/10/21 08:27 12:10 17:45 WBC MCH MCHC RDW Lymph % (Auto) Lymph # (Auto) Baso # (Auto) Seg Neutrophils % Seg Neuts % (Manual) Lymphocytes % (Manual) Seg Neutrophils # Seg Neutrophils # Man Lymphocytes # (Manual) D-Dimer ABG pH POC ABG pO2 ABG pO2 ABG HCO3 ABG O2 Saturation ABG Base Excess ABG Oxyhemoglobin ABG Sodium ABG Chloride ABG Glucose Oxyhemoglobin Carboxyhemoglobin Sodium Potassium Chloride Carbon Dioxide BUN Creatinine Glucose POC Glucose 174 H 306 H 210 H Hemoglobin A1c Ferritin AST ALT Alkaline Phosphatase Lactate Dehydrogenase C-Reactive Protein Total Protein Albumin Arterial Blood Glucose Coronavirus (PCR) 06/10/21 06/11/21 06/11/21 21:45 09:38 09:38 WBC MCH MCHC RDW 20.9 H Lymph % (Auto) Lymph # (Auto) Baso # (Auto) Seg Neutrophils % Seg Neuts % (Manual) Lymphocytes % (Manual) Seg Neutrophils # Seg Neutrophils # Man Lymphocytes # (Manual) D-Dimer ABG pH POC ABG pO2 ABG pO2 ABG HCO3 ABG O2 Saturation ABG Base Excess ABG Oxyhemoglobin ABG Sodium ABG Chloride ABG Glucose Oxyhemoglobin Carboxyhemoglobin Sodium 135 L Potassium Chloride 90.8 L Carbon Dioxide 36 H BUN 29 H Creatinine 0.2 L Glucose 258 H POC Glucose 262 H Hemoglobin A1c Ferritin AST ALT Alkaline Phosphatase Lactate Dehydrogenase C-Reactive Protein Total Protein Albumin Arterial Blood Glucose Coronavirus (PCR) 06/11/21 06/11/21 06/11/21 11:20 15:49 22:57 WBC MCH MCHC RDW Lymph % (Auto) Lymph # (Auto) Baso # (Auto) Seg Neutrophils % Seg Neuts % (Manual) Lymphocytes % (Manual) Seg Neutrophils # Seg Neutrophils # Man Lymphocytes # (Manual) D-Dimer ABG pH POC ABG pO2 ABG pO2 ABG HCO3 ABG O2 Saturation ABG Base Excess ABG Oxyhemoglobin ABG Sodium ABG Chloride ABG Glucose Oxyhemoglobin Carboxyhemoglobin Sodium Potassium Chloride Carbon Dioxide BUN Creatinine Glucose POC Glucose 269 H 206 H 211 H Hemoglobin A1c Ferritin AST ALT Alkaline Phosphatase Lactate Dehydrogenase C-Reactive Protein Total Protein Albumin Arterial Blood Glucose Coronavirus (PCR) 06/12/21 06/12/21 06/12/21 08:07 11:24 18:08 WBC MCH MCHC RDW Lymph % (Auto) Lymph # (Auto) Baso # (Auto) Seg Neutrophils % Seg Neuts % (Manual) Lymphocytes % (Manual) Seg Neutrophils # Seg Neutrophils # Man Lymphocytes # (Manual) D-Dimer ABG pH POC ABG pO2 ABG pO2 ABG HCO3 ABG O2 Saturation ABG Base Excess ABG Oxyhemoglobin ABG Sodium ABG Chloride ABG Glucose Oxyhemoglobin Carboxyhemoglobin Sodium Potassium Chloride Carbon Dioxide BUN Creatinine Glucose POC Glucose 149 H 270 H 166 H Hemoglobin A1c Ferritin AST ALT Alkaline Phosphatase Lactate Dehydrogenase C-Reactive Protein Total Protein Albumin Arterial Blood Glucose Coronavirus (PCR) 06/12/21 06/13/21 06/13/21 20:22 07:50 11:18 WBC MCH MCHC RDW Lymph % (Auto) Lymph # (Auto) Baso # (Auto) Seg Neutrophils % Seg Neuts % (Manual) Lymphocytes % (Manual) Seg Neutrophils # Seg Neutrophils # Man Lymphocytes # (Manual) D-Dimer ABG pH POC ABG pO2 ABG pO2 ABG HCO3 ABG O2 Saturation ABG Base Excess ABG Oxyhemoglobin ABG Sodium ABG Chloride ABG Glucose Oxyhemoglobin Carboxyhemoglobin Sodium Potassium Chloride Carbon Dioxide BUN Creatinine Glucose POC Glucose 155 H 163 H 293 H Hemoglobin A1c Ferritin AST ALT Alkaline Phosphatase Lactate Dehydrogenase C-Reactive Protein Total Protein Albumin Arterial Blood Glucose Coronavirus (PCR) 06/13/21 06/13/21 06/14/21 16:41 21:00 07:41 WBC MCH MCHC RDW Lymph % (Auto) Lymph # (Auto) Baso # (Auto) Seg Neutrophils % Seg Neuts % (Manual) Lymphocytes % (Manual) Seg Neutrophils # Seg Neutrophils # Man Lymphocytes # (Manual) D-Dimer ABG pH POC ABG pO2 ABG pO2 ABG HCO3 ABG O2 Saturation ABG Base Excess ABG Oxyhemoglobin ABG Sodium ABG Chloride ABG Glucose Oxyhemoglobin Carboxyhemoglobin Sodium Potassium Chloride Carbon Dioxide BUN Creatinine Glucose POC Glucose 232 H 183 H 52 L Hemoglobin A1c Ferritin AST ALT Alkaline Phosphatase Lactate Dehydrogenase C-Reactive Protein Total Protein Albumin Arterial Blood Glucose Coronavirus (PCR) 06/14/21 06/14/21 06/14/21 11:44 17:44 21:44 WBC MCH MCHC RDW Lymph % (Auto) Lymph # (Auto) Baso # (Auto) Seg Neutrophils % Seg Neuts % (Manual) Lymphocytes % (Manual) Seg Neutrophils # Seg Neutrophils # Man Lymphocytes # (Manual) D-Dimer ABG pH POC ABG pO2 ABG pO2 ABG HCO3 ABG O2 Saturation ABG Base Excess ABG Oxyhemoglobin ABG Sodium ABG Chloride ABG Glucose Oxyhemoglobin Carboxyhemoglobin Sodium Potassium Chloride Carbon Dioxide BUN Creatinine Glucose POC Glucose 205 H 293 H 288 H Hemoglobin A1c Ferritin AST ALT Alkaline Phosphatase Lactate Dehydrogenase C-Reactive Protein Total Protein Albumin Arterial Blood Glucose Coronavirus (PCR) 06/15/21 06/15/21 06/15/21 08:00 08:00 11:40 WBC MCH 33 H MCHC 35 H RDW 20.3 H Lymph % (Auto) Lymph # (Auto) Baso # (Auto) Seg Neutrophils % Seg Neuts % (Manual) Lymphocytes % (Manual) Seg Neutrophils # Seg Neutrophils # Man Lymphocytes # (Manual) D-Dimer ABG pH POC ABG pO2 ABG pO2 ABG HCO3 ABG O2 Saturation ABG Base Excess ABG Oxyhemoglobin ABG Sodium ABG Chloride ABG Glucose Oxyhemoglobin Carboxyhemoglobin Sodium Potassium 3.2 L Chloride 95.3 L Carbon Dioxide 32 H BUN 23 H Creatinine 0.2 L Glucose 103 H POC Glucose 204 H Hemoglobin A1c Ferritin AST ALT Alkaline Phosphatase Lactate Dehydrogenase C-Reactive Protein Total Protein Albumin Arterial Blood Glucose Coronavirus (PCR) 06/15/21 16:17 WBC MCH MCHC RDW Lymph % (Auto) Lymph # (Auto) Baso # (Auto) Seg Neutrophils % Seg Neuts % (Manual) Lymphocytes % (Manual) Seg Neutrophils # Seg Neutrophils # Man Lymphocytes # (Manual) D-Dimer ABG pH POC ABG pO2 ABG pO2 ABG HCO3 ABG O2 Saturation ABG Base Excess ABG Oxyhemoglobin ABG Sodium ABG Chloride ABG Glucose Oxyhemoglobin Carboxyhemoglobin Sodium Potassium Chloride Carbon Dioxide BUN Creatinine Glucose POC Glucose 295 H Hemoglobin A1c Ferritin AST ALT Alkaline Phosphatase Lactate Dehydrogenase C-Reactive Protein Total Protein Albumin Arterial Blood Glucose Coronavirus (PCR) Chest x-ray: report reviewed, image reviewed
[2021-06-15] MEDS: ZOLPIDEM 5 MG TAB PO PRN (22:18)
[2021-06-15] MEDS: ENOXAPARIN 40 MG/0.4 ML INJ SUB-Q SCH (22:19)
[2021-06-15] MEDS: SENNOSIDES 8.6 MG TAB PO SCH (22:19)
[2021-06-16] MEDS: INSULIN LISPRO 100 UNIT/ML SUB-Q SCH ×4 (07:30→22:52)
[2021-06-16] MEDS: ACETAMINOPHEN 325 MG TAB PO PRN (09:58)
[2021-06-16] MEDS: FUROSEMIDE 40 MG/4 ML INJ IV SCH (09:58)
[2021-06-16] MEDS: DOCUSATE SODIUM 100 MG CAP PO SCH ×2 (09:58→21:23)
[2021-06-16] MEDS: INSULIN GLARGINE 100 UNITS/ML SUB-Q SCH ×2 (09:59→22:51)
[2021-06-16] MEDS: ZINC SULFATE 220 MG CAP PO SCH ×2 (09:59→21:23)
[2021-06-16] MEDS: ASCORBIC ACID 500 MG TAB PO SCH (09:59)
[2021-06-16] MEDS: predniSONE 20 MG TAB PO SCH (09:59)
[2021-06-16] MEDS: CHOLECALCIFEROL (VIT D3) 1000 UNIT (25 mcg) TAB PO SCH (09:59)
[2021-06-16] MEDS: clonazePAM 0.5 MG TAB PO PRN ×2 (10:12→21:22)
--- NOTE | 2021-06-16 11:08 | Progress Note ---
Assessment and Plan 50-year-old female past medical history obesity, GERD, hyperlipidemia brought to the hospital due to shortness of breath, fevers, malaise, typical Covid symptoms for approximate 1 week prior to admission and was progressively worse since on set. She is found to have saturations of 86% on presentation. Afebrile since admission with a white count 7.5. Covid test was positive positive along with normal renal function and normal procalcitonin. Chest x-ray: Bilateral pneumonia. Patient initiated on Covid protocol, ID and pulmonary care following Assessment and plan: --Acute hypoxic resp failure due to covid19 -S/p BiPAP, now discontinued -Currently on high per nasal cannula -See RT notes for titration -Albuterol as needed -Pulmonary hygiene -Pulmonology following CTA chest ordered, patient could not tolerate --covid19 pna; sepsis; -zinc/vitC/D -cont steroid; wean as appropriate -Infectious disease consulted, -S/p Actemra and remdesivir -Trend temperature and WBC curve -Follow culture data --Oral candidiasis Nystatin solution ordered. -- hyponatremia -Trend BMP -Replace electrolytes as needed -Monitor intake and output -- coagulopathy of covid; on AC -Subcu heparin -Trend CBC -Transfuse for hemoglobin less than 7 -Bilateral lower extremity Doppler ultrasounds negative for DVT ; no CTA or VQ scan to rule out PE -- hyperglycemia; obesity -glargine HS -SSI AC/HS -Avoid hypoglycemia -- risk for protein gisella malnutrition given inc metabolic demand with resp insufficiency -TPN earlier in hospital admission due to BiPAP however now patient is tolerating p.o. -Patient on a GI soft diet with aspiration precautions -Nutrition following -Bowel regimen: Colace, senna, MiraLAX -PPI --Anxiety Likely due to severe hypoxia -Follows commands and RAY -PRN pain and anxiety meds -Patient is Amharic-speaking but understands Spanish --viral conjunctivitis right eye: -Right eye- s/p 5 d course of cipro drops. suspect viral conjunctivitis. lubricating eye drops. supportive management. --Septic shock -S/p pressors now discontinued -MAP goal 65 -Pressure monitor per protocol --DVT prophylaxis, per hospital protocol Hospital course to date: 04/17: Patient seen and examined, still uncomfortable with Hypoxic respiratory failure and on oxygen, will continue to steroids therapy, start patient on Remdesivir, ID consulted, Pulmonary consult placed. 04/18: Patient seen and examined, she is currently being changed to High flow NC due to worsening HYPOXIA, will transfer to IMCU, Pulmonary and ID following. Will also give a dose of Lasix today. Monitor Inflammatory markers. 04/19: Patient seen and examined still on high flow due to hypoxia. Appears a bit more comfortable today than yesterday. Cough has decreased in frequency. We will continue high dose Dexameathasone to complete 10 days. continue on Remdesivir 200 mg IV q day x 1 followed by 100 mg IV q day x 4 days -Obtain q48-72h inflammatory markers - ferritin, Ddimer, CRP, LDH Will also give lasix daily for the next 3 days and monitor renal function. Family updated. Continue prone positioning as tolerated 04/20: Patient has some desaturation episodes yesterday was placed on BiPAP. Discussed with ICU team for bed availability for patient to be transferred up. Continue prone position as tolerated. 04/21: Patient remains with profound hypoxia secondary to COVID pneumonia. -Continue steroids -Continue remedesir -S/P Actmera 04/22: Patient remains on steroids and remdesivir. ABG shows persistent hypoxia. We will continue current management additional trial of Lasix for the next few d ays to see if any improvement. Monitor inflammatory markers as needed. Prognosis is guarded remains on high flow 04/23; patient was treated with remdesivir and Actemra. Continue steroid. Patient's prognosis is guarded. 04/24; patient is on steroid. Patient is currently on BiPAP. Prognosis is gua rded. Pulmonary is following. Patient was given Lasix and Ativan. 04/25; continue steroid. Patient was on 40 L of high flow oxygen with saturation was 88%. Pulmonary is following. Prognosis is guarded. Patient was given lasix and ativan. 04/26; patient is on BiPAP and Precedex. Prognosis is guarded. 04/27; patient is on BiPAP and Precedex. Patient will finish steroid today and will start on Solu-Medrol tomorrow. Prognosis is guarded. Blood pressure is better today. Hold Lasix. 04/28 patient is on 100 Fio2 via BIPAP. moderately dyspneic, pulmonary note reviewed, lab results reviewed 04/29 no acute events- see systems review above 04/30 no acute events overnight - on airvo today- TPN started -see systems review above -18 no acute events overnight- tolerating airvo- see systems review above - no acute events overnight; tolerating airvo this AM- see systems review above 05/03: Patient has shown remarkable improvement, weaned down to 3 L and satting 95%. Will attempt to walk test today in anticipation for discharge tomorrow. Discussed with PT team to walk the patient today also. 05/04: Patient appears to have had a decline he was down to 3 L satting 95% with anticipation for discharge today but desatted down to 85% on room air and only 88% on 5 L he is now back at 8 L. I encourage incentive spirometer. While he is on Xarelto and has completed the severe steroids which was subsequently changed to Solu-Medrol I will go ahead and order a CTA to make sure that there is not a failure of Xarelto. We will continue to wean as tolerated discussed with nursing staff at bedside. 05/05/21 Patient is on 40 L of oxygen with 80% FiO2. Patient is encouraged to turn to the side more frequently. Patient is denied any shortness of breath and coughing. No other complaints. Follow the CT scan of the chest. Status post remdesivir and Actemra.Solu-Medrol 40 mg IV every 8 hours. Continue current management. Pulmonary follow-up. 05/06: Patient remains on high flow nasal cannula but states that she feels slightly better with the help of translation from her cousin Aspen. Patient is still awaiting a bed on the floor. Patient diet is being tolerated now so we will stop TPN will be stopped tonight. 05/07/2021: Patient remains on 40 L/min oxygen at 90% FiO2. Attempt made for CTA chest to rule out pulmonary embolism however patient desatted while at CT. Study was aborted, will reattempt again tomorrow. will follow along with renetta bertrand. Discussed/updated patient and patient's daughter over phone regarding any active clinical issues. Patient only complaint is oral pain from oral candidiasis noted on exam. Nystatin oral solution ordered. Daughter also voiced concern over patient eye drops which she stated that patient needed to restart from home. However she did not remember name of drops. advised daughter to call our hospital with drop name and dosing and we will restart. 05/08/2021: Started anticoagulation with Lovenox yesterday. Awaiting CTA chest completion. Will attempt to de-escalate oxygen as patient tolerates 05/09/2021: Continues to have high O2 requirements. CTA chest aborted due to patient not being able to tolerate transport to and from scanner. Will follow pulmonology recommendations 05/10/2021: Steroids increased yesterday to 125 mg every 8 hour. Continuing full dose anticoagulation. Respiratory status still remains challenging as it is difficult to wean patient off of hifnc. Minimal improvement compared to last few days. Plan to prone patient today. Otherwise: Some improvement in eye symptoms compared to yesterday. Will order more lubricating eye drops 05/11/2021: Still requires high flow nasal cannula, FiO2 de-escalated to 85%.. Encourage continued proning, patient care team aware. Continue with steroids, anticoagulation, antibiotics. 05/12/2021: High flow nasal cannula remains at flow rate 35 L/min and FiO2 of 85%. Patient appears more comfortable today. Started insulin regimen due to hyperglycemia likely multifactorial in the setting of underlying diabetes and high-dose steroids. Continue to encourage patient to prone. Discussed with pulmonology regarding patient underlying anxiety. We both agreed that low-dose BuSpar might be beneficial for the patient. 05/13/2020: hypoxic resp distress overnight. cpap ordered. Current settings on encounter 30/04 at 100% FIO2. Advised care (RN, RT, PT) team to continue to aggressively work with patient as far as proning. Patient can sit at side of bed and rest on bedside tray w/ pillow in "Rodin's thinker pose". continue high dose steroids, PRN ativan for anxiety, Buspar noted in pulm recs. 05/14/21: Patient remains on 100% O2 with high flow. Follow inflammatory markers, wean FiO2 as tolerated, guarded prognosis 05/15: Patient on 40 L high flow O2 today-requiring nonrebreather intermittently, continue to follow inflammatory markers and wean off O2 as tolerated, guarded prognosis. 05/16:-Remains on high flow O2 along with nonrebreather, continue to follow inflammatory markers and wean off O2 as tolerated, pulmonary and ID following. Guarded prognosis, patient requiring higher concentration of O2 and unable to wean off. 05/17: Persistently recurring higher concentration O2. Patient on both high flow oxygen and nonrebreather. Poor prognosis, continue to follow inflammatory markers. ID and pulmonary care following. Updated family. 05/18: Patient remains on nonrebreather and high flow O2, Prone if possible. Wean FiO2 for sats >88%. Prognosis is very very guarded. Follow inflammatory markers. 05/19: Wean FiO2 for sats >88%. Patient remains on nonrebreather and high flow O2, Prone if possible. Follow inflammatory markers. Prognosis is very very guarded. 05/20: Patient remains on high flow O2 along with nonrebreather. Guarded prognosis. Wean off O2 as tolerated. Pulmonary and ID following 05/21: Clinically very poor prognosis. Patient continuously requiring high flow O2 along with nonrebreather. Updated daughter with all clinical details. Follow BMP, follow inflammatory markers. Wean off O2 as tolerated. 05/22: Remains on nonrebreather and high flow O2. Continue to monitor clinically, guarded prognosis. Continue to follow inflammatory markers. ID and pulmonary also following. 06/11/21: Remains on high flow O2, poor prognosis 06/12/2021 On high flow nasal cannula oxygen Steroids will be tapered Prone position 06/13/21:Changed to prednisone 60 daily [id number]/1/21. Prone if able and wean for sats >88% 06/14/21: Continue oral steroid therapy. Weaning of steroids to continue. Proning as tolerated 06/15: Remains on 30 L high flow O2, continue to wean off as tolerated, patient on steroid, guarded prognosis, call patient family for update but the phone number in the chart looks like not in service. 06/16; continue supportive care wean off O2 as tolerated, patient remains on 30 L high flow O2 Subjective Date of service: 06/16/21 Principal diagnosis: Covid-19 Interval history: Patient seen and examined. Medical records and medication list reviewed. No acute event overnight noted by the RN. Patient remains on high flow O2. Patient is tolerating diet. Discussed plan of care at bedside with patient. Objective - Exam Narrative Exam: Limited physical exam due to COVID-19 pandemic to minimize transmission of the disease and to preserve PPE. Vital reviewed and stable. GENERAL: well-developed well-nourished lying on bed appeared to be in no discomfort. HEENT: Normocephalic. Atraumatic. Right eye congestion NECK: Supple. CHEST/LUNGS: breathing on high flow O2 HEART/CARDIOVASCULAR: Heart rate stable on telemetry ABDOMEN: Visibly not distended SKIN: There is no rash NEURO: No focal motor deficit. Follows command. MUSCULOSKELETAL: No joint effusion EXTRIMITY: No swelling, no cyanosis or clubbing. PSYCH: Cooperative. - Constitutional Vitals: Vital Signs - 12hr 06/16/21 06/16/21 06/16/21 05:10 06:13 07:59 Temperature 97.9 F Pulse Rate 97 H Respiratory 18 Rate Blood Pressure 112/80 O2 Sat by Pulse 95 90 94 Oximetry 06/16/21 09:54 Temperature Pulse Rate Respiratory Rate Blood Pressure O2 Sat by Pulse 94 Oximetry - Labs CBC & Chem 7: 06/15/21 08:00 06/15/21 08:00 Labs: Abnormal lab results 06/15/21 06/15/21 06/15/21 Range/Units 11:40 16:17 22:00 POC Glucose 204 H 295 H 233 H (70-105) mg/dL
[2021-06-16] MEDS: ENOXAPARIN 40 MG/0.4 ML INJ SUB-Q SCH (21:22)
[2021-06-16] MEDS: ZOLPIDEM 5 MG TAB PO PRN (21:22)
[2021-06-16] MEDS: SENNOSIDES 8.6 MG TAB PO SCH (21:23)
--- NOTE | 2021-06-16 22:49 | Progress Note ---
Assessment and Plan Imp: 1. Covid-19 2. Viral pneumonia 3. Acute respiratory failure, hypoxia Rec: 1. S/p Remdesivir, Actemra 2. Prednisone same 3. SubQ Lovenox; D-dimer improving 4. Proning 5. Wean HFNC to keep sats 88% or > Subjective Date of service: 06/16/21 Principal diagnosis: Covid-19 Interval history: No events. On 30LPM and 60% FiO2 HFNC. + SOB. Active Medications Acetaminophen (Acetaminophen 325 Mg Tab) 650 mg PO Q4H PRN PRN Reason: Pain MILD(1-3)/Fever >100.5/[place] Last Admin: 06/16/21 09:58 Dose: 650 mg Documented by: Albuterol (Albuterol 2.5 Mg/3 Ml Nebu) 2.5 mg IH Q4HRT PRN PRN Reason: Shortness Of Breath Last Admin: 04/21/21 20:39 Dose: 2.5 mg Documented by: Artificial Tears (Hypromellose 0.5% Ophth Soln 15 Ml) 2 drops OU Q4H PRN PRN Reason: Dry Eye(s) Last Admin: 05/29/21 13:25 Dose: 2 drops Documented by: Ascorbic Acid (Ascorbic Acid 500 Mg Tab) 500 mg PO QDAY [facility] Last Admin: 06/16/21 09:59 Dose: 500 mg Documented by: Bisacodyl (Bisacodyl 10 Mg Rect Supp) 10 mg MN QDAY PRN PRN Reason: Constipation Cholecalciferol (Cholecalciferol (Vit D3) 1000 Unit (25 Mcg) Tab) 1,000 unit PO QDAY [facility] Last Admin: 06/16/21 09:59 Dose: 1,000 unit Documented by: Clonazepam (Clonazepam 0.5 Mg Tab) 1 mg PO Q8H PRN PRN Reason: Anxiety Last Admin: 06/16/21 21:22 Dose: 1 mg Documented by: Dextrose (Dextrose 50% In Water (25gm) 50 Ml Syringe) 50 ml IV Q30MIN PRN; Protocol PRN Reason: Hypoglycemia Last Admin: 04/28/21 09:59 Dose: 50 ml Documented by: Docusate Sodium (Docusate Sodium 100 Mg Cap) 100 mg PO BID [facility] Last Admin: 06/16/21 21:23 Dose: 100 mg Documented by: Enoxaparin Sodium (Enoxaparin 40 Mg/0.4 Ml Inj) 40 mg SUB-Q QDAY@2200 [facility]; Protocol Last Admin: 06/16/21 21:22 Dose: 40 mg Documented by: Furosemide (Furosemide 40 Mg/4 Ml Inj) 40 mg IV QDAY [facility] Last Admin: 06/16/21 09:58 Dose: 40 mg Documented by: Insulin Glargine (Insulin Glargine 100 Units/Ml) 25 units SUB-Q DAILY [facility] Last Admin: 06/16/21 09:59 Dose: 25 units Documented by: Insulin Glargine (Insulin Glargine 100 Units/Ml) 8 units SUB-Q QHS [facility] Last Admin: 06/15/21 22:22 Dose: 8 units Documented by: Insulin Human Lispro (Insulin Lispro 100 Unit/Ml) 0 unit SUB-Q ACHS [facility]; Protocol Last Admin: 06/16/21 16:30 Dose: 4 unit Documented by: Lorazepam (Lorazepam 2 Mg/Ml Vial) 1 mg IV Q6H PRN PRN Reason: Agitation Last Admin: 06/11/21 23:55 Dose: 1 mg Documented by: Magnesium Hydroxide (Magnesium Hydroxide (Mom) Oral Liqd Udc) 30 ml PO QDAY PRN PRN Reason: Constipation Last Admin: 06/11/21 11:06 Dose: 30 ml Documented by: Ondansetron HCl (Ondansetron 4 Mg/2 Ml Inj) 4 mg IV Q8H PRN PRN Reason: Nausea And Vomiting Last Admin: 05/30/21 10:07 Dose: 4 mg Documented by: Prednisone (Prednisone 20 Mg Tab) 60 mg PO QDAY [facility] Last Admin: 06/16/21 09:59 Dose: 60 mg Documented by: Senna (Sennosides 8.6 Mg Tab) 17.2 mg PO QHS [facility] Last Admin: 06/16/21 21:23 Dose: 17.2 mg Documented by: Sodium Chloride (Sodium Chloride 0.9% 10 Ml Flush Syringe) 10 ml IV BID [facility] Last Admin: 06/16/21 10:00 Dose: 10 ml Documented by: Sodium Chloride (Sodium Chloride 0.9% 10 Ml Flush Syringe) 10 ml IV PRN PRN PRN Reason: LINE FLUSH Last Admin: 05/22/21 15:21 Dose: 10 ml Documented by: Zinc Sulfate (Zinc Sulfate 220 Mg Cap) 220 mg PO BID [facility] Last Admin: 06/16/21 21:23 Dose: 220 mg Documented by: Zolpidem Tartrate (Zolpidem 5 Mg Tab) 10 mg PO QHS PRN PRN Reason: Insomnia Last Admin: 06/16/21 21:22 Dose: 10 mg Documented by: Objective - Exam Narrative Exam: Exam deferred to preserve PPE and decrease transmission of virus. Reviewed primary team exam. Vital Signs - 12hr 06/16/21 06/16/21 06/16/21 11:43 13:56 17:21 Temperature 98.0 F 98.1 F Pulse Rate 111 H 107 H Respiratory 22 22 Rate Blood Pressure 124/66 116/62 O2 Sat by Pulse 88 92 91 Oximetry 06/16/21 22:27 Temperature 97.8 F Pulse Rate 101 H Respiratory 16 Rate Blood Pressure 113/63 O2 Sat by Pulse 92 Oximetry CBC and BMP: 06/15/21 08:00 06/15/21 08:00 ABG, PT/INR, D-dimer: ABG ABG pH 7.403 pH Units (7.350-7.450) 05/14/21 02:23 POC ABG pCO2 45.4 mmHg (32.0-48.0) 05/03/21 04:49 ABG pCO2 50.2 mm Hg 05/14/21 02:23 POC ABG pO2 65.3 mmHg (83-108) L 05/03/21 04:49 ABG pO2 130.3 mm Hg (80.0-90.0) H 05/14/21 02:23 POC ABG HCO3 18.5 05/03/21 04:49 ABG O2 Saturation 98.5 % (95.0-99.0) 05/14/21 02:23 PT/INR, D-dimer D-Dimer 488.49 ng/mlDDU (0-234) H 06/05/21 05:26 Abnormal lab findings: Abnormal Labs 04/16/21 04/16/21 04/16/21 11:42 11:42 11:42 WBC MCH MCHC RDW 16.1 H Lymph % (Auto) 7.8 L Lymph # (Auto) 0.8 L Baso # (Auto) Seg Neutrophils % 87.7 H Seg Neuts % (Manual) Lymphocytes % (Manual) Seg Neutrophils # 8.5 H Seg Neutrophils # Man Lymphocytes # (Manual) D-Dimer 338.70 H ABG pH POC ABG pO2 ABG pO2 ABG HCO3 ABG O2 Saturation ABG Base Excess ABG Oxyhemoglobin ABG Sodium ABG Chloride ABG Glucose Oxyhemoglobin Carboxyhemoglobin Sodium Potassium Chloride Carbon Dioxide BUN Creatinine Glucose 194 H POC Glucose Hemoglobin A1c Ferritin AST ALT Alkaline Phosphatase Lactate Dehydrogenase C-Reactive Protein Total Protein 8.4 H Albumin 3.8 L Arterial Blood Glucose Coronavirus (PCR) 04/16/21 04/16/21 04/17/21 11:42 11:42 03:50 WBC MCH MCHC RDW 16.0 H Lymph % (Auto) 7.7 L Lymph # (Auto) 0.6 L Baso # (Auto) Seg Neutrophils % 89.8 H Seg Neuts % (Manual) Lymphocytes % (Manual) Seg Neutrophils # Seg Neutrophils # Man Lymphocytes # (Manual) D-Dimer ABG pH POC ABG pO2 ABG pO2 ABG HCO3 ABG O2 Saturation ABG Base Excess ABG Oxyhemoglobin ABG Sodium ABG Chloride ABG Glucose Oxyhemoglobin Carboxyhemoglobin Sodium Potassium Chloride Carbon Dioxide BUN Creatinine Glucose 195 H POC Glucose Hemoglobin A1c Ferritin 254.3 H AST ALT Alkaline Phosphatase Lactate Dehydrogenase 359 H C-Reactive Protein 15.20 H Total Protein Albumin Arterial Blood Glucose Coronavirus (PCR) 04/17/21 04/17/21 04/17/21 03:50 08:26 08:26 WBC MCH MCHC RDW Lymph % (Auto) Lymph # (Auto) Baso # (Auto) Seg Neutrophils % Seg Neuts % (Manual) Lymphocytes % (Manual) Seg Neutrophils # Seg Neutrophils # Man Lymphocytes # (Manual) D-Dimer 262.48 H ABG pH POC ABG pO2 ABG pO2 ABG HCO3 ABG O2 Saturation ABG Base Excess ABG Oxyhemoglobin ABG Sodium ABG Chloride ABG Glucose Oxyhemoglobin Carboxyhemoglobin Sodium Potassium Chloride Carbon Dioxide BUN 20 H Creatinine 0.5 L Glucose 249 H 225 H POC Glucose Hemoglobin A1c Ferritin AST ALT Alkaline Phosphatase Lactate Dehydrogenase 338 H C-Reactive Protein 17.20 H Total Protein Albumin 3.2 L Arterial Blood Glucose Coronavirus (PCR) 04/17/21 04/17/21 04/17/21 08:26 15:04 Unknown WBC MCH MCHC RDW Lymph % (Auto) Lymph # (Auto) Baso # (Auto) Seg Neutrophils % Seg Neuts % (Manual) Lymphocytes % (Manual) Seg Neutrophils # Seg Neutrophils # Man Lymphocytes # (Manual) D-Dimer ABG pH POC ABG pO2 ABG pO2 ABG HCO3 ABG O2 Saturation ABG Base Excess ABG Oxyhemoglobin ABG Sodium ABG Chloride ABG Glucose Oxyhemoglobin Carboxyhemoglobin Sodium Potassium Chloride Carbon Dioxide BUN 20 H Creatinine 0.5 L Glucose 246 H POC Glucose Hemoglobin A1c Ferritin 392.0 H AST ALT Alkaline Phosphatase Lactate Dehydrogenase C-Reactive Protein Total Protein 8.3 H Albumin 3.1 L Arterial Blood Glucose Coronavirus (PCR) Positive A 04/18/21 04/18/21 04/18/21 05:06 05:06 07:36 WBC 11.6 H MCH MCHC RDW 16.1 H Lymph % (Auto) Lymph # (Auto) Baso # (Auto) Seg Neutrophils % Seg Neuts % (Manual) Lymphocytes % (Manual) Seg Neutrophils # Seg Neutrophils # Man Lymphocytes # (Manual) D-Dimer ABG pH POC ABG pO2 ABG pO2 ABG HCO3 ABG O2 Saturation ABG Base Excess ABG Oxyhemoglobin ABG Sodium ABG Chloride ABG Glucose Oxyhemoglobin Carboxyhemoglobin Sodium Potassium 5.2 H Chloride Carbon Dioxide BUN 22 H Creatinine 0.5 L Glucose 315 H POC Glucose Hemoglobin A1c 8.5 H Ferritin AST ALT Alkaline Phosphatase Lactate Dehydrogenase C-Reactive Protein Total Protein Albumin 3.3 L Arterial Blood Glucose Coronavirus (PCR) 04/18/21 04/18/21 04/18/21 11:59 16:43 23:24 WBC MCH MCHC RDW Lymph % (Auto) Lymph # (Auto) Baso # (Auto) Seg Neutrophils % Seg Neuts % (Manual) Lymphocytes % (Manual) Seg Neutrophils # Seg Neutrophils # Man Lymphocytes # (Manual) D-Dimer ABG pH POC ABG pO2 ABG pO2 ABG HCO3 ABG O2 Saturation ABG Base Excess ABG Oxyhemoglobin ABG Sodium ABG Chloride ABG Glucose Oxyhemoglobin Carboxyhemoglobin Sodium Potassium Chloride Carbon Dioxide BUN Creatinine Glucose POC Glucose 284 H 273 H 290 H Hemoglobin A1c Ferritin AST ALT Alkaline Phosphatase Lactate Dehydrogenase C-Reactive Protein Total Protein Albumin Arterial Blood Glucose Coronavirus (PCR) 04/19/21 04/19/21 04/19/21 04:19 04:19 08:10 WBC MCH MCHC RDW 15.7 H Lymph % (Auto) Lymph # (Auto) Baso # (Auto) Seg Neutrophils % Seg Neuts % (Manual) Lymphocytes % (Manual) Seg Neutrophils # Seg Neutrophils # Man Lymphocytes # (Manual) D-Dimer ABG pH POC ABG pO2 ABG pO2 ABG HCO3 ABG O2 Saturation ABG Base Excess ABG Oxyhemoglobin ABG Sodium ABG Chloride ABG Glucose Oxyhemoglobin Carboxyhemoglobin Sodium Potassium Chloride Carbon Dioxide BUN 27 H Creatinine 0.4 L Glucose 184 H POC Glucose 194 H Hemoglobin A1c Ferritin AST ALT Alkaline Phosphatase Lactate Dehydrogenase C-Reactive Protein Total Protein Albumin 3.1 L Arterial Blood Glucose Coronavirus (PCR) 04/19/21 04/19/21 04/19/21 11:38 16:25 22:04 WBC MCH MCHC RDW Lymph % (Auto) Lymph # (Auto) Baso # (Auto) Seg Neutrophils % Seg Neuts % (Manual) Lymphocytes % (Manual) Seg Neutrophils # Seg Neutrophils # Man Lymphocytes # (Manual) D-Dimer ABG pH POC ABG pO2 ABG pO2 ABG HCO3 ABG O2 Saturation ABG Base Excess ABG Oxyhemoglobin ABG Sodium ABG Chloride ABG Glucose Oxyhemoglobin Carboxyhemoglobin Sodium Potassium Chloride Carbon Dioxide BUN Creatinine Glucose POC Glucose 224 H 297 H 251 H Hemoglobin A1c Ferritin AST ALT Alkaline Phosphatase Lactate Dehydrogenase C-Reactive Protein Total Protein Albumin Arterial Blood Glucose Coronavirus (PCR) 04/20/21 04/20/21 04/20/21 05:28 08:43 16:21 WBC MCH MCHC RDW Lymph % (Auto) Lymph # (Auto) Baso # (Auto) Seg Neutrophils % Seg Neuts % (Manual) Lymphocytes % (Manual) Seg Neutrophils # Seg Neutrophils # Man Lymphocytes # (Manual) D-Dimer ABG pH POC ABG pO2 ABG pO2 ABG HCO3 ABG O2 Saturation ABG Base Excess ABG Oxyhemoglobin ABG Sodium ABG Chloride ABG Glucose Oxyhemoglobin Carboxyhemoglobin Sodium Potassium Chloride Carbon Dioxide BUN 27 H Creatinine Glucose 192 H POC Glucose 173 H 253 H Hemoglobin A1c Ferritin AST ALT Alkaline Phosphatase Lactate Dehydrogenase C-Reactive Protein Total Protein Albumin 3.0 L Arterial Blood Glucose Coronavirus (PCR) 04/21/21 04/21/21 04/21/21 07:58 12:05 16:08 WBC MCH MCHC RDW Lymph % (Auto) Lymph # (Auto) Baso # (Auto) Seg Neutrophils % Seg Neuts % (Manual) Lymphocytes % (Manual) Seg Neutrophils # Seg Neutrophils # Man Lymphocytes # (Manual) D-Dimer ABG pH POC ABG pO2 ABG pO2 ABG HCO3 ABG O2 Saturation ABG Base Excess ABG Oxyhemoglobin ABG Sodium ABG Chloride ABG Glucose Oxyhemoglobin Carboxyhemoglobin Sodium Potassium Chloride Carbon Dioxide BUN Creatinine Glucose POC Glucose 140 H 252 H 214 H Hemoglobin A1c Ferritin AST ALT Alkaline Phosphatase Lactate Dehydrogenase C-Reactive Protein Total Protein Albumin Arterial Blood Glucose Coronavirus (PCR) 04/21/21 04/22/21 04/22/21 21:42 08:37 12:01 WBC MCH MCHC RDW Lymph % (Auto) Lymph # (Auto) Baso # (Auto) Seg Neutrophils % Seg Neuts % (Manual) Lymphocytes % (Manual) Seg Neutrophils # Seg Neutrophils # Man Lymphocytes # (Manual) D-Dimer ABG pH 7.457 H POC ABG pO2 49.4 L ABG pO2 ABG HCO3 ABG O2 Saturation ABG Base Excess ABG Oxyhemoglobin 85.6 L ABG Sodium ABG Chloride ABG Glucose 121 H Oxyhemoglobin Carboxyhemoglobin 0.3 L Sodium Potassium Chloride Carbon Dioxide BUN Creatinine Glucose POC Glucose 162 H 227 H Hemoglobin A1c Ferritin AST ALT Alkaline Phosphatase Lactate Dehydrogenase C-Reactive Protein Total Protein Albumin Arterial Blood Glucose 121 H Coronavirus (PCR) 04/22/21 04/22/21 04/23/21 16:26 22:23 04:52 WBC MCH MCHC RDW 15.7 H Lymph % (Auto) Lymph # (Auto) Baso # (Auto) Seg Neutrophils % Seg Neuts % (Manual) Lymphocytes % (Manual) Seg Neutrophils # Seg Neutrophils # Man Lymphocytes # (Manual) D-Dimer ABG pH POC ABG pO2 ABG pO2 ABG HCO3 ABG O2 Saturation ABG Base Excess ABG Oxyhemoglobin ABG Sodium ABG Chloride ABG Glucose Oxyhemoglobin Carboxyhemoglobin Sodium Potassium Chloride Carbon Dioxide BUN Creatinine Glucose POC Glucose 200 H 136 H Hemoglobin A1c Ferritin AST ALT Alkaline Phosphatase Lactate Dehydrogenase C-Reactive Protein Total Protein Albumin Arterial Blood Glucose Coronavirus (PCR) 04/23/21 04/23/21 04/23/21 04:52 12:06 17:41 WBC MCH MCHC RDW Lymph % (Auto) Lymph # (Auto) Baso # (Auto) Seg Neutrophils % Seg Neuts % (Manual) Lymphocytes % (Manual) Seg Neutrophils # Seg Neutrophils # Man Lymphocytes # (Manual) D-Dimer ABG pH POC ABG pO2 ABG pO2 ABG HCO3 ABG O2 Saturation ABG Base Excess ABG Oxyhemoglobin ABG Sodium ABG Chloride ABG Glucose Oxyhemoglobin Carboxyhemoglobin Sodium 136 L Potassium Chloride 97.7 L Carbon Dioxide BUN 23 H Creatinine Glucose 101 H POC Glucose 202 H 169 H Hemoglobin A1c Ferritin AST 46 H ALT Alkaline Phosphatase Lactate Dehydrogenase C-Reactive Protein Total Protein Albumin 3.3 L Arterial Blood Glucose Coronavirus (PCR) 04/23/21 04/24/21 04/24/21 23:08 05:17 08:38 WBC MCH MCHC RDW Lymph % (Auto) Lymph # (Auto) Baso # (Auto) Seg Neutrophils % Seg Neuts % (Manual) Lymphocytes % (Manual) Seg Neutrophils # Seg Neutrophils # Man Lymphocytes # (Manual) D-Dimer ABG pH POC ABG pO2 ABG pO2 ABG HCO3 ABG O2 Saturation ABG Base Excess ABG Oxyhemoglobin ABG Sodium ABG Chloride ABG Glucose Oxyhemoglobin Carboxyhemoglobin Sodium Potassium Chloride Carbon Dioxide BUN Creatinine Glucose POC Glucose 111 H 108 H 126 H Hemoglobin A1c Ferritin AST ALT Alkaline Phosphatase Lactate Dehydrogenase C-Reactive Protein Total Protein Albumin Arterial Blood Glucose Coronavirus (PCR) 04/24/21 04/24/21 04/24/21 11:54 17:57 21:23 WBC MCH MCHC RDW Lymph % (Auto) Lymph # (Auto) Baso # (Auto) Seg Neutrophils % Seg Neuts % (Manual) Lymphocytes % (Manual) Seg Neutrophils # Seg Neutrophils # Man Lymphocytes # (Manual) D-Dimer ABG pH POC ABG pO2 ABG pO2 ABG HCO3 ABG O2 Saturation ABG Base Excess ABG Oxyhemoglobin ABG Sodium ABG Chloride ABG Glucose Oxyhemoglobin Carboxyhemoglobin Sodium Potassium Chloride Carbon Dioxide BUN Creatinine Glucose POC Glucose 147 H 177 H 138 H Hemoglobin A1c Ferritin AST ALT Alkaline Phosphatase Lactate Dehydrogenase C-Reactive Protein Total Protein Albumin Arterial Blood Glucose Coronavirus (PCR) 04/25/21 04/25/21 04/25/21 07:06 11:23 15:43 WBC MCH MCHC RDW Lymph % (Auto) Lymph # (Auto) Baso # (Auto) Seg Neutrophils % Seg Neuts % (Manual) Lymphocytes % (Manual) Seg Neutrophils # Seg Neutrophils # Man Lymphocytes # (Manual) D-Dimer ABG pH POC ABG pO2 ABG pO2 ABG HCO3 ABG O2 Saturation ABG Base Excess ABG Oxyhemoglobin ABG Sodium ABG Chloride ABG Glucose Oxyhemoglobin Carboxyhemoglobin Sodium Potassium Chloride Carbon Dioxide BUN Creatinine Glucose POC Glucose 147 H 169 H 227 H Hemoglobin A1c Ferritin AST ALT Alkaline Phosphatase Lactate Dehydrogenase C-Reactive Protein Total Protein Albumin Arterial Blood Glucose Coronavirus (PCR) 04/25/21 04/26/21 04/26/21 21:22 02:45 05:15 WBC MCH MCHC RDW Lymph % (Auto) Lymph # (Auto) Baso # (Auto) Seg Neutrophils % Seg Neuts % (Manual) Lymphocytes % (Manual) Seg Neutrophils # Seg Neutrophils # Man Lymphocytes # (Manual) D-Dimer ABG pH POC ABG pO2 70.7 L ABG pO2 ABG HCO3 ABG O2 Saturation ABG Base Excess ABG Oxyhemoglobin 93.0 L ABG Sodium 132.7 L ABG Chloride ABG Glucose 115 H Oxyhemoglobin Carboxyhemoglobin Sodium Potassium Chloride 95.8 L Carbon Dioxide 32 H BUN 20 H Creatinine Glucose 102 H POC Glucose 196 H Hemoglobin A1c Ferritin AST ALT Alkaline Phosphatase Lactate Dehydrogenase C-Reactive Protein Total Protein Albumin Arterial Blood Glucose 115 H Coronavirus (PCR) 04/26/21 04/26/21 04/26/21 11:49 16:09 21:07 WBC MCH MCHC RDW Lymph % (Auto) Lymph # (Auto) Baso # (Auto) Seg Neutrophils % Seg Neuts % (Manual) Lymphocytes % (Manual) Seg Neutrophils # Seg Neutrophils # Man Lymphocytes # (Manual) D-Dimer ABG pH POC ABG pO2 ABG pO2 ABG HCO3 ABG O2 Saturation ABG Base Excess ABG Oxyhemoglobin ABG Sodium ABG Chloride ABG Glucose Oxyhemoglobin Carboxyhemoglobin Sodium Potassium Chloride Carbon Dioxide BUN Creatinine Glucose POC Glucose 114 H 188 H 136 H Hemoglobin A1c Ferritin AST ALT Alkaline Phosphatase Lactate Dehydrogenase C-Reactive Protein Total Protein Albumin Arterial Blood Glucose Coronavirus (PCR) 04/27/21 04/27/21 04/28/21 17:34 22:12 08:26 WBC MCH MCHC RDW Lymph % (Auto) Lymph # (Auto) Baso # (Auto) Seg Neutrophils % Seg Neuts % (Manual) Lymphocytes % (Manual) Seg Neutrophils # Seg Neutrophils # Man Lymphocytes # (Manual) D-Dimer ABG pH POC ABG pO2 ABG pO2 ABG HCO3 ABG O2 Saturation ABG Base Excess ABG Oxyhemoglobin ABG Sodium ABG Chloride ABG Glucose Oxyhemoglobin Carboxyhemoglobin Sodium Potassium Chloride Carbon Dioxide BUN Creatinine Glucose POC Glucose 128 H 159 H 69 L Hemoglobin A1c Ferritin AST ALT Alkaline Phosphatase Lactate Dehydrogenase C-Reactive Protein Total Protein Albumin Arterial Blood Glucose Coronavirus (PCR) 04/28/21 04/28/21 04/29/21 12:22 21:11 06:05 WBC MCH MCHC RDW Lymph % (Auto) Lymph # (Auto) Baso # (Auto) Seg Neutrophils % Seg Neuts % (Manual) Lymphocytes % (Manual) Seg Neutrophils # Seg Neutrophils # Man Lymphocytes # (Manual) D-Dimer ABG pH POC ABG pO2 ABG pO2 ABG HCO3 ABG O2 Saturation ABG Base Excess ABG Oxyhemoglobin ABG Sodium ABG Chloride ABG Glucose Oxyhemoglobin Carboxyhemoglobin Sodium 132 L Potassium Chloride 94.4 L Carbon Dioxide BUN Creatinine 0.2 L D Glucose 140 H POC Glucose 141 H 171 H Hemoglobin A1c Ferritin AST ALT Alkaline Phosphatase Lactate Dehydrogenase C-Reactive Protein Total Protein Albumin Arterial Blood Glucose Coronavirus (PCR) 04/29/21 04/29/21 04/29/21 06:05 07:24 11:36 WBC MCH MCHC 35 H RDW 15.9 H Lymph % (Auto) Lymph # (Auto) Baso # (Auto) Seg Neutrophils % Seg Neuts % (Manual) Lymphocytes % (Manual) Seg Neutrophils # Seg Neutrophils # Man Lymphocytes # (Manual) D-Dimer ABG pH POC ABG pO2 ABG pO2 ABG HCO3 ABG O2 Saturation ABG Base Excess ABG Oxyhemoglobin ABG Sodium ABG Chloride ABG Glucose Oxyhemoglobin Carboxyhemoglobin Sodium Potassium Chloride Carbon Dioxide BUN Creatinine Glucose POC Glucose 141 H 220 H Hemoglobin A1c Ferritin AST ALT Alkaline Phosphatase Lactate Dehydrogenase C-Reactive Protein Total Protein Albumin Arterial Blood Glucose Coronavirus (PCR) 04/29/21 04/29/21 04/29/21 14:23 15:30 17:06 WBC MCH MCHC RDW Lymph % (Auto) Lymph # (Auto) Baso # (Auto) Seg Neutrophils % Seg Neuts % (Manual) Lymphocytes % (Manual) Seg Neutrophils # Seg Neutrophils # Man Lymphocytes # (Manual) D-Dimer ABG pH POC ABG pO2 ABG pO2 52.6 L ABG HCO3 ABG O2 Saturation 86.4 L ABG Base Excess ABG Oxyhemoglobin ABG Sodium ABG Chloride ABG Glucose Oxyhemoglobin 84.6 L Carboxyhemoglobin Sodium Potassium Chloride Carbon Dioxide BUN Creatinine Glucose POC Glucose 173 H 158 H Hemoglobin A1c Ferritin AST ALT Alkaline Phosphatase Lactate Dehydrogenase C-Reactive Protein Total Protein Albumin Arterial Blood Glucose Coronavirus (PCR) 04/29/21 04/30/21 04/30/21 21:27 07:16 08:00 WBC MCH MCHC RDW 16.1 H Lymph % (Auto) Lymph # (Auto) Baso # (Auto) Seg Neutrophils % Seg Neuts % (Manual) Lymphocytes % (Manual) Seg Neutrophils # Seg Neutrophils # Man Lymphocytes # (Manual) D-Dimer ABG pH POC ABG pO2 ABG pO2 ABG HCO3 ABG O2 Saturation ABG Base Excess ABG Oxyhemoglobin ABG Sodium ABG Chloride ABG Glucose Oxyhemoglobin Carboxyhemoglobin Sodium Potassium Chloride Carbon Dioxide BUN Creatinine Glucose POC Glucose 244 H 175 H Hemoglobin A1c Ferritin AST ALT Alkaline Phosphatase Lactate Dehydrogenase C-Reactive Protein Total Protein Albumin Arterial Blood Glucose Coronavirus (PCR) 04/30/21 04/30/21 04/30/21 08:00 08:00 11:03 WBC MCH MCHC RDW Lymph % (Auto) Lymph # (Auto) Baso # (Auto) Seg Neutrophils % Seg Neuts % (Manual) Lymphocytes % (Manual) Seg Neutrophils # Seg Neutrophils # Man Lymphocytes # (Manual) D-Dimer 1796.87 H ABG pH POC ABG pO2 ABG pO2 ABG HCO3 ABG O2 Saturation ABG Base Excess ABG Oxyhemoglobin ABG Sodium ABG Chloride ABG Glucose Oxyhemoglobin Carboxyhemoglobin Sodium 135 L Potassium Chloride 96.3 L Carbon Dioxide BUN Creatinine 0.2 L Glucose 153 H POC Glucose 183 H Hemoglobin A1c Ferritin AST 41 H ALT 76 H Alkaline Phosphatase 160 H Lactate Dehydrogenase 522 H C-Reactive Protein Total Protein 6.1 L Albumin 3.1 L Arterial Blood Glucose Coronavirus (PCR) 04/30/21 04/30/21 05/01/21 17:04 22:17 05:39 WBC MCH MCHC RDW Lymph % (Auto) Lymph # (Auto) Baso # (Auto) Seg Neutrophils % Seg Neuts % (Manual) Lymphocytes % (Manual) Seg Neutrophils # Seg Neutrophils # Man Lymphocytes # (Manual) D-Dimer ABG pH POC ABG pO2 ABG pO2 ABG HCO3 ABG O2 Saturation ABG Base Excess ABG Oxyhemoglobin ABG Sodium ABG Chloride ABG Glucose Oxyhemoglobin Carboxyhemoglobin Sodium 133 L Potassium Chloride 92.1 L Carbon Dioxide BUN 24 H Creatinine 0.4 L D Glucose 269 H POC Glucose 167 H 208 H Hemoglobin A1c Ferritin AST ALT 66 H Alkaline Phosphatase 142 H Lactate Dehydrogenase C-Reactive Protein Total Protein Albumin 3.2 L Arterial Blood Glucose Coronavirus (PCR) 05/01/21 05/01/21 05/01/21 05:39 05:39 07:45 WBC MCH MCHC RDW 16.0 H Lymph % (Auto) Lymph # (Auto) Baso # (Auto) Seg Neutrophils % Seg Neuts % (Manual) Lymphocytes % (Manual) Seg Neutrophils # Seg Neutrophils # Man Lymphocytes # (Manual) D-Dimer 3984.95 H ABG pH POC ABG pO2 ABG pO2 ABG HCO3 ABG O2 Saturation ABG Base Excess ABG Oxyhemoglobin ABG Sodium ABG Chloride ABG Glucose Oxyhemoglobin Carboxyhemoglobin Sodium Potassium Chloride Carbon Dioxide BUN Creatinine Glucose POC Glucose 229 H Hemoglobin A1c Ferritin AST ALT Alkaline Phosphatase Lactate Dehydrogenase C-Reactive Protein Total Protein Albumin Arterial Blood Glucose Coronavirus (PCR) 05/01/21 05/01/21 05/01/21 12:10 15:46 21:06 WBC MCH MCHC RDW Lymph % (Auto) Lymph # (Auto) Baso # (Auto) Seg Neutrophils % Seg Neuts % (Manual) Lymphocytes % (Manual) Seg Neutrophils # Seg Neutrophils # Man Lymphocytes # (Manual) D-Dimer ABG pH POC ABG pO2 ABG pO2 ABG HCO3 ABG O2 Saturation ABG Base Excess ABG Oxyhemoglobin ABG Sodium ABG Chloride ABG Glucose Oxyhemoglobin Carboxyhemoglobin Sodium Potassium Chloride Carbon Dioxide BUN Creatinine Glucose POC Glucose 296 H 279 H 232 H Hemoglobin A1c Ferritin AST ALT Alkaline Phosphatase Lactate Dehydrogenase C-Reactive Protein Total Protein Albumin Arterial Blood Glucose Coronavirus (PCR) 05/02/21 05/02/21 05/02/21 04:55 04:55 04:55 WBC MCH MCHC RDW 16.1 H Lymph % (Auto) Lymph # (Auto) Baso # (Auto) Seg Neutrophils % Seg Neuts % (Manual) Lymphocytes % (Manual) Seg Neutrophils # Seg Neutrophils # Man Lymphocytes # (Manual) D-Dimer 1401.08 H ABG pH POC ABG pO2 ABG pO2 ABG HCO3 ABG O2 Saturation ABG Base Excess ABG Oxyhemoglobin ABG Sodium ABG Chloride ABG Glucose Oxyhemoglobin Carboxyhemoglobin Sodium 131 L Potassium Chloride 95.5 L Carbon Dioxide BUN 20 H Creatinine 0.3 L Glucose 288 H POC Glucose Hemoglobin A1c Ferritin AST ALT Alkaline Phosphatase Lactate Dehydrogenase C-Reactive Protein Total Protein 6.0 L Albumin 3.1 L Arterial Blood Glucose Coronavirus (PCR) 05/02/21 05/02/21 05/02/21 07:53 11:45 15:25 WBC MCH MCHC RDW Lymph % (Auto) Lymph # (Auto) Baso # (Auto) Seg Neutrophils % Seg Neuts % (Manual) Lymphocytes % (Manual) Seg Neutrophils # Seg Neutrophils # Man Lymphocytes # (Manual) D-Dimer ABG pH POC ABG pO2 ABG pO2 ABG HCO3 ABG O2 Saturation ABG Base Excess ABG Oxyhemoglobin ABG Sodium ABG Chloride ABG Glucose Oxyhemoglobin Carboxyhemoglobin Sodium Potassium Chloride Carbon Dioxide BUN Creatinine Glucose POC Glucose 180 H 228 H 275 H Hemoglobin A1c Ferritin AST ALT Alkaline Phosphatase Lactate Dehydrogenase C-Reactive Protein Total Protein Albumin Arterial Blood Glucose Coronavirus (PCR) 05/02/21 05/03/21 05/03/21 22:56 04:30 04:49 WBC MCH MCHC RDW Lymph % (Auto) Lymph # (Auto) Baso # (Auto) Seg Neutrophils % Seg Neuts % (Manual) Lymphocytes % (Manual) Seg Neutrophils # Seg Neutrophils # Man Lymphocytes # (Manual) D-Dimer ABG pH 7.229 L POC ABG pO2 65.3 L ABG pO2 ABG HCO3 ABG O2 Saturation ABG Base Excess ABG Oxyhemoglobin 87.8 L ABG Sodium 133.0 L ABG Chloride 97.0 L ABG Glucose 403 H Oxyhemoglobin Carboxyhemoglobin Sodium 130 L Potassium Chloride 94.9 L Carbon Dioxide BUN 20 H Creatinine 0.5 L D Glucose 359 H POC Glucose 293 H Hemoglobin A1c Ferritin AST 54 H ALT 75 H Alkaline Phosphatase 138 H Lactate Dehydrogenase C-Reactive Protein Total Protein Albumin 3.6 L Arterial Blood Glucose 403 H Coronavirus (PCR) 05/03/21 05/03/21 05/03/21 05:27 11:26 17:57 WBC MCH MCHC RDW Lymph % (Auto) Lymph # (Auto) Baso # (Auto) Seg Neutrophils % Seg Neuts % (Manual) Lymphocytes % (Manual) Seg Neutrophils # Seg Neutrophils # Man Lymphocytes # (Manual) D-Dimer ABG pH POC ABG pO2 ABG pO2 ABG HCO3 ABG O2 Saturation ABG Base Excess ABG Oxyhemoglobin ABG Sodium ABG Chloride ABG Glucose Oxyhemoglobin Carboxyhemoglobin Sodium Potassium Chloride Carbon Dioxide BUN Creatinine Glucose POC Glucose 361 H 297 H 226 H Hemoglobin A1c Ferritin AST ALT Alkaline Phosphatase Lactate Dehydrogenase C-Reactive Protein Total Protein Albumin Arterial Blood Glucose Coronavirus (PCR) 05/03/21 05/04/21 05/04/21 23:12 05:12 07:30 WBC MCH MCHC RDW Lymph % (Auto) Lymph # (Auto) Baso # (Auto) Seg Neutrophils % Seg Neuts % (Manual) Lymphocytes % (Manual) Seg Neutrophils # Seg Neutrophils # Man Lymphocytes # (Manual) D-Dimer ABG pH POC ABG pO2 ABG pO2 ABG HCO3 ABG O2 Saturation ABG Base Excess ABG Oxyhemoglobin ABG Sodium ABG Chloride ABG Glucose Oxyhemoglobin Carboxyhemoglobin Sodium Potassium Chloride Carbon Dioxide BUN Creatinine Glucose POC Glucose 282 H 285 H 254 H Hemoglobin A1c Ferritin AST ALT Alkaline Phosphatase Lactate Dehydrogenase C-Reactive Protein Total Protein Albumin Arterial Blood Glucose Coronavirus (PCR) 05/04/21 05/04/21 05/04/21 08:58 11:45 16:07 WBC MCH MCHC RDW Lymph % (Auto) Lymph # (Auto) Baso # (Auto) Seg Neutrophils % Seg Neuts % (Manual) Lymphocytes % (Manual) Seg Neutrophils # Seg Neutrophils # Man Lymphocytes # (Manual) D-Dimer ABG pH POC ABG pO2 ABG pO2 ABG HCO3 ABG O2 Saturation ABG Base Excess ABG Oxyhemoglobin ABG Sodium ABG Chloride ABG Glucose Oxyhemoglobin Carboxyhemoglobin Sodium 134 L Potassium Chloride Carbon Dioxide BUN 20 H Creatinine 0.3 L Glucose 267 H POC Glucose 244 H 297 H Hemoglobin A1c Ferritin AST ALT Alkaline Phosphatase Lactate Dehydrogenase C-Reactive Protein Total Protein 6.0 L Albumin 3.2 L Arterial Blood Glucose Coronavirus (PCR) 05/04/21 05/05/21 05/05/21 23:32 05:00 05:13 WBC MCH MCHC RDW Lymph % (Auto) Lymph # (Auto) Baso # (Auto) Seg Neutrophils % Seg Neuts % (Manual) Lymphocytes % (Manual) Seg Neutrophils # Seg Neutrophils # Man Lymphocytes # (Manual) D-Dimer ABG pH POC ABG pO2 ABG pO2 ABG HCO3 ABG O2 Saturation ABG Base Excess ABG Oxyhemoglobin ABG Sodium ABG Chloride ABG Glucose Oxyhemoglobin Carboxyhemoglobin Sodium 132 L Potassium Chloride 96.4 L Carbon Dioxide BUN 22 H Creatinine 0.3 L Glucose 228 H POC Glucose 154 H 260 H Hemoglobin A1c Ferritin AST ALT 67 H Alkaline Phosphatase Lactate Dehydrogenase C-Reactive Protein Total Protein 6.1 L Albumin 3.2 L Arterial Blood Glucose Coronavirus (PCR) 05/05/21 05/05/21 05/05/21 11:32 17:49 23:07 WBC MCH MCHC RDW Lymph % (Auto) Lymph # (Auto) Baso # (Auto) Seg Neutrophils % Seg Neuts % (Manual) Lymphocytes % (Manual) Seg Neutrophils # Seg Neutrophils # Man Lymphocytes # (Manual) D-Dimer ABG pH POC ABG pO2 ABG pO2 ABG HCO3 ABG O2 Saturation ABG Base Excess ABG Oxyhemoglobin ABG Sodium ABG Chloride ABG Glucose Oxyhemoglobin Carboxyhemoglobin Sodium Potassium Chloride Carbon Dioxide BUN Creatinine Glucose POC Glucose 279 H 308 H 213 H Hemoglobin A1c Ferritin AST ALT Alkaline Phosphatase Lactate Dehydrogenase C-Reactive Protein Total Protein Albumin Arterial Blood Glucose Coronavirus (PCR) 05/06/21 05/06/21 05/06/21 05:00 05:00 05:20 WBC MCH MCHC RDW 16.8 H Lymph % (Auto) Lymph # (Auto) Baso # (Auto) Seg Neutrophils % Seg Neuts % (Manual) 99.0 H Lymphocytes % (Manual) Seg Neutrophils # Seg Neutrophils # Man 10.9 H Lymphocytes # (Manual) 0.0 L D-Dimer ABG pH POC ABG pO2 ABG pO2 ABG HCO3 ABG O2 Saturation ABG Base Excess ABG Oxyhemoglobin ABG Sodium ABG Chloride ABG Glucose Oxyhemoglobin Carboxyhemoglobin Sodium 133 L Potassium Chloride Carbon Dioxide BUN 21 H Creatinine 0.3 L Glucose 259 H POC Glucose 308 H Hemoglobin A1c Ferritin AST ALT Alkaline Phosphatase Lactate Dehydrogenase C-Reactive Protein Total Protein Albumin 3.2 L Arterial Blood Glucose Coronavirus (PCR) 05/06/21 05/06/21 05/06/21 11:24 17:54 21:32 WBC MCH MCHC RDW Lymph % (Auto) Lymph # (Auto) Baso # (Auto) Seg Neutrophils % Seg Neuts % (Manual) Lymphocytes % (Manual) Seg Neutrophils # Seg Neutrophils # Man Lymphocytes # (Manual) D-Dimer ABG pH POC ABG pO2 ABG pO2 ABG HCO3 ABG O2 Saturation ABG Base Excess ABG Oxyhemoglobin ABG Sodium ABG Chloride ABG Glucose Oxyhemoglobin Carboxyhemoglobin Sodium Potassium Chloride Carbon Dioxide BUN Creatinine Glucose POC Glucose 262 H 124 H 246 H Hemoglobin A1c Ferritin AST ALT Alkaline Phosphatase Lactate Dehydrogenase C-Reactive Protein Total Protein Albumin Arterial Blood Glucose Coronavirus (PCR) 05/06/21 05/07/21 05/07/21 23:10 04:54 04:54 WBC MCH MCHC RDW Lymph % (Auto) Lymph # (Auto) Baso # (Auto) Seg Neutrophils % Seg Neuts % (Manual) Lymphocytes % (Manual) Seg Neutrophils # Seg Neutrophils # Man Lymphocytes # (Manual) D-Dimer 1609.28 H ABG pH POC ABG pO2 ABG pO2 ABG HCO3 ABG O2 Saturation ABG Base Excess ABG Oxyhemoglobin ABG Sodium ABG Chloride ABG Glucose Oxyhemoglobin Carboxyhemoglobin Sodium 136 L Potassium Chloride Carbon Dioxide BUN 23 H Creatinine 0.3 L Glucose 110 H POC Glucose 249 H Hemoglobin A1c Ferritin AST ALT Alkaline Phosphatase Lactate Dehydrogenase C-Reactive Protein Total Protein 6.2 L Albumin 3.0 L Arterial Blood Glucose Coronavirus (PCR) 05/07/21 05/07/21 05/07/21 04:54 04:54 11:41 WBC MCH MCHC RDW Lymph % (Auto) Lymph # (Auto) Baso # (Auto) Seg Neutrophils % Seg Neuts % (Manual) Lymphocytes % (Manual) Seg Neutrophils # Seg Neutrophils # Man Lymphocytes # (Manual) D-Dimer ABG pH POC ABG pO2 ABG pO2 ABG HCO3 ABG O2 Saturation ABG Base Excess ABG Oxyhemoglobin ABG Sodium ABG Chloride ABG Glucose Oxyhemoglobin Carboxyhemoglobin Sodium Potassium Chloride Carbon Dioxide BUN Creatinine Glucose POC Glucose 118 H Hemoglobin A1c Ferritin 296.1 H AST ALT Alkaline Phosphatase Lactate Dehydrogenase 724 H C-Reactive Protein Total Protein Albumin Arterial Blood Glucose Coronavirus (PCR) 05/07/21 05/07/21 05/08/21 16:43 22:34 06:44 WBC MCH MCHC RDW Lymph % (Auto) Lymph # (Auto) Baso # (Auto) Seg Neutrophils % Seg Neuts % (Manual) Lymphocytes % (Manual) Seg Neutrophils # Seg Neutrophils # Man Lymphocytes # (Manual) D-Dimer ABG pH POC ABG pO2 ABG pO2 ABG HCO3 ABG O2 Saturation ABG Base Excess ABG Oxyhemoglobin ABG Sodium ABG Chloride ABG Glucose Oxyhemoglobin Carboxyhemoglobin Sodium Potassium Chloride Carbon Dioxide BUN Creatinine Glucose POC Glucose 159 H 233 H 235 H Hemoglobin A1c Ferritin AST ALT Alkaline Phosphatase Lactate Dehydrogenase C-Reactive Protein Total Protein Albumin Arterial Blood Glucose Coronavirus (PCR) 05/08/21 05/08/21 05/08/21 07:49 11:56 17:13 WBC MCH MCHC RDW Lymph % (Auto) Lymph # (Auto) Baso # (Auto) Seg Neutrophils % Seg Neuts % (Manual) Lymphocytes % (Manual) Seg Neutrophils # Seg Neutrophils # Man Lymphocytes # (Manual) D-Dimer ABG pH POC ABG pO2 ABG pO2 ABG HCO3 ABG O2 Saturation ABG Base Excess ABG Oxyhemoglobin ABG Sodium ABG Chloride ABG Glucose Oxyhemoglobin Carboxyhemoglobin Sodium Potassium Chloride Carbon Dioxide BUN Creatinine Glucose POC Glucose 219 H 184 H 182 H Hemoglobin A1c Ferritin AST ALT Alkaline Phosphatase Lactate Dehydrogenase C-Reactive Protein Total Protein Albumin Arterial Blood Glucose Coronavirus (PCR) 05/08/21 05/09/21 05/09/21 23:35 05:20 05:20 WBC MCH MCHC RDW Lymph % (Auto) Lymph # (Auto) Baso # (Auto) Seg Neutrophils % Seg Neuts % (Manual) Lymphocytes % (Manual) Seg Neutrophils # Seg Neutrophils # Man Lymphocytes # (Manual) D-Dimer 1003.87 H ABG pH POC ABG pO2 ABG pO2 ABG HCO3 ABG O2 Saturation ABG Base Excess ABG Oxyhemoglobin ABG Sodium ABG Chloride ABG Glucose Oxyhemoglobin Carboxyhemoglobin Sodium Potassium Chloride Carbon Dioxide BUN Creatinine Glucose POC Glucose 198 H Hemoglobin A1c Ferritin 378.7 H AST ALT Alkaline Phosphatase Lactate Dehydrogenase C-Reactive Protein Total Protein Albumin Arterial Blood Glucose Coronavirus (PCR) 05/09/21 05/09/21 05/09/21 05:20 06:04 12:53 WBC MCH MCHC RDW Lymph % (Auto) Lymph # (Auto) Baso # (Auto) Seg Neutrophils % Seg Neuts % (Manual) Lymphocytes % (Manual) Seg Neutrophils # Seg Neutrophils # Man Lymphocytes # (Manual) D-Dimer ABG pH POC ABG pO2 ABG pO2 ABG HCO3 ABG O2 Saturation ABG Base Excess ABG Oxyhemoglobin ABG Sodium ABG Chloride ABG Glucose Oxyhemoglobin Carboxyhemoglobin Sodium Potassium Chloride Carbon Dioxide BUN Creatinine Glucose POC Glucose 159 H 180 H Hemoglobin A1c Ferritin AST ALT Alkaline Phosphatase Lactate Dehydrogenase 558 H C-Reactive Protein 2.40 H Total Protein Albumin Arterial Blood Glucose Coronavirus (PCR) 05/09/21 05/09/21 05/10/21 16:43 21:27 10:18 WBC MCH MCHC RDW Lymph % (Auto) Lymph # (Auto) Baso # (Auto) Seg Neutrophils % Seg Neuts % (Manual) Lymphocytes % (Manual) Seg Neutrophils # Seg Neutrophils # Man Lymphocytes # (Manual) D-Dimer ABG pH POC ABG pO2 ABG pO2 ABG HCO3 ABG O2 Saturation ABG Base Excess ABG Oxyhemoglobin ABG Sodium ABG Chloride ABG Glucose Oxyhemoglobin Carboxyhemoglobin Sodium Potassium Chloride Carbon Dioxide BUN Creatinine Glucose POC Glucose 212 H 285 H 261 H Hemoglobin A1c Ferritin AST ALT Alkaline Phosphatase Lactate Dehydrogenase C-Reactive Protein Total Protein Albumin Arterial Blood Glucose Coronavirus (PCR) 05/10/21 05/10/21 05/11/21 17:58 18:02 00:29 WBC MCH MCHC RDW Lymph % (Auto) Lymph # (Auto) Baso # (Auto) Seg Neutrophils % Seg Neuts % (Manual) Lymphocytes % (Manual) Seg Neutrophils # Seg Neutrophils # Man Lymphocytes # (Manual) D-Dimer ABG pH POC ABG pO2 ABG pO2 ABG HCO3 ABG O2 Saturation ABG Base Excess ABG Oxyhemoglobin ABG Sodium ABG Chloride ABG Glucose Oxyhemoglobin Carboxyhemoglobin Sodium Potassium Chloride Carbon Dioxide BUN Creatinine Glucose POC Glucose 213 H 179 H 149 H Hemoglobin A1c Ferritin AST ALT Alkaline Phosphatase Lactate Dehydrogenase C-Reactive Protein Total Protein Albumin Arterial Blood Glucose Coronavirus (PCR) 05/11/21 05/11/21 05/11/21 05:22 11:32 17:00 WBC 14.9 H MCH MCHC RDW 18.9 H Lymph % (Auto) 4.9 L Lymph # (Auto) 0.7 L Baso # (Auto) 0.2 H Seg Neutrophils % Seg Neuts % (Manual) Lymphocytes % (Manual) Seg Neutrophils # 13.3 H Seg Neutrophils # Man Lymphocytes # (Manual) D-Dimer ABG pH POC ABG pO2 ABG pO2 ABG HCO3 ABG O2 Saturation ABG Base Excess ABG Oxyhemoglobin ABG Sodium ABG Chloride ABG Glucose Oxyhemoglobin Carboxyhemoglobin Sodium Potassium Chloride Carbon Dioxide BUN Creatinine Glucose POC Glucose 162 H 179 H Hemoglobin A1c Ferritin AST ALT Alkaline Phosphatase Lactate Dehydrogenase C-Reactive Protein Total Protein Albumin Arterial Blood Glucose Coronavirus (PCR) 05/11/21 05/11/21 05/11/21 17:00 17:33 22:03 WBC MCH MCHC RDW Lymph % (Auto) Lymph # (Auto) Baso # (Auto) Seg Neutrophils % Seg Neuts % (Manual) Lymphocytes % (Manual) Seg Neutrophils # Seg Neutrophils # Man Lymphocytes # (Manual) D-Dimer ABG pH POC ABG pO2 ABG pO2 ABG HCO3 ABG O2 Saturation ABG Base Excess ABG Oxyhemoglobin ABG Sodium ABG Chloride ABG Glucose Oxyhemoglobin Carboxyhemoglobin Sodium 135 L Potassium Chloride 97.3 L Carbon Dioxide BUN 21 H Creatinine 0.3 L Glucose 133 H POC Glucose 140 H 282 H Hemoglobin A1c Ferritin AST ALT 60 H Alkaline Phosphatase Lactate Dehydrogenase C-Reactive Protein Total Protein Albumin 3.1 L Arterial Blood Glucose Coronavirus (PCR) 05/12/21 05/12/21 05/12/21 04:05 04:05 04:05 WBC MCH MCHC RDW 18.4 H Lymph % (Auto) Lymph # (Auto) Baso # (Auto) Seg Neutrophils % Seg Neuts % (Manual) 94.0 H Lymphocytes % (Manual) 4.0 L Seg Neutrophils # Seg Neutrophils # Man Lymphocytes # (Manual) 0.3 L D-Dimer ABG pH POC ABG pO2 ABG pO2 ABG HCO3 ABG O2 Saturation ABG Base Excess ABG Oxyhemoglobin ABG Sodium ABG Chloride ABG Glucose Oxyhemoglobin Carboxyhemoglobin Sodium 136 L Potassium Chloride Carbon Dioxide BUN 18 H Creatinine 0.2 L Glucose 142 H POC Glucose Hemoglobin A1c Ferritin 350.7 H AST ALT Alkaline Phosphatase Lactate Dehydrogenase 546 H C-Reactive Protein Total Protein 6.1 L Albumin 3.0 L Arterial Blood Glucose Coronavirus (PCR) 05/12/21 05/12/21 05/12/21 05:11 11:17 16:27 WBC MCH MCHC RDW Lymph % (Auto) Lymph # (Auto) Baso # (Auto) Seg Neutrophils % Seg Neuts % (Manual) Lymphocytes % (Manual) Seg Neutrophils # Seg Neutrophils # Man Lymphocytes # (Manual) D-Dimer ABG pH POC ABG pO2 ABG pO2 ABG HCO3 ABG O2 Saturation ABG Base Excess ABG Oxyhemoglobin ABG Sodium ABG Chloride ABG Glucose Oxyhemoglobin Carboxyhemoglobin Sodium Potassium Chloride Carbon Dioxide BUN Creatinine Glucose POC Glucose 152 H 190 H 261 H Hemoglobin A1c Ferritin AST ALT Alkaline Phosphatase Lactate Dehydrogenase C-Reactive Protein Total Protein Albumin Arterial Blood Glucose Coronavirus (PCR) 05/12/21 05/13/21 05/13/21 20:55 11:08 21:41 WBC MCH MCHC RDW Lymph % (Auto) Lymph # (Auto) Baso # (Auto) Seg Neutrophils % Seg Neuts % (Manual) Lymphocytes % (Manual) Seg Neutrophils # Seg Neutrophils # Man Lymphocytes # (Manual) D-Dimer ABG pH POC ABG pO2 ABG pO2 ABG HCO3 ABG O2 Saturation ABG Base Excess ABG Oxyhemoglobin ABG Sodium ABG Chloride ABG Glucose Oxyhemoglobin Carboxyhemoglobin Sodium Potassium Chloride Carbon Dioxide BUN Creatinine Glucose POC Glucose 231 H 106 H 174 H Hemoglobin A1c Ferritin AST ALT Alkaline Phosphatase Lactate Dehydrogenase C-Reactive Protein Total Protein Albumin Arterial Blood Glucose Coronavirus (PCR) 05/14/21 05/14/21 05/14/21 00:53 02:23 06:06 WBC MCH MCHC RDW Lymph % (Auto) Lymph # (Auto) Baso # (Auto) Seg Neutrophils % Seg Neuts % (Manual) Lymphocytes % (Manual) Seg Neutrophils # Seg Neutrophils # Man Lymphocytes # (Manual) D-Dimer ABG pH POC ABG pO2 ABG pO2 130.3 H ABG HCO3 30.6 H ABG O2 Saturation ABG Base Excess 4.9 H ABG Oxyhemoglobin ABG Sodium ABG Chloride ABG Glucose Oxyhemoglobin Carboxyhemoglobin Sodium Potassium Chloride Carbon Dioxide BUN Creatinine Glucose POC Glucose 229 H 119 H Hemoglobin A1c Ferritin AST ALT Alkaline Phosphatase Lactate Dehydrogenase C-Reactive Protein Total Protein Albumin Arterial Blood Glucose Coronavirus (PCR) 05/14/21 05/14/21 05/14/21 07:13 07:13 07:13 WBC MCH MCHC RDW Lymph % (Auto) Lymph # (Auto) Baso # (Auto) Seg Neutrophils % Seg Neuts % (Manual) Lymphocytes % (Manual) Seg Neutrophils # Seg Neutrophils # Man Lymphocytes # (Manual) D-Dimer 712.80 H ABG pH POC ABG pO2 ABG pO2 ABG HCO3 ABG O2 Saturation ABG Base Excess ABG Oxyhemoglobin ABG Sodium ABG Chloride ABG Glucose Oxyhemoglobin Carboxyhemoglobin Sodium 133 L Potassium Chloride 95.5 L Carbon Dioxide 32 H BUN Creatinine 0.2 L Glucose 137 H POC Glucose Hemoglobin A1c Ferritin 283.5 H AST ALT 63 H Alkaline Phosphatase Lactate Dehydrogenase 563 H C-Reactive Protein Total Protein 6.1 L Albumin 3.0 L Arterial Blood Glucose Coronavirus (PCR) 05/14/21 05/14/21 05/14/21 12:21 15:33 21:50 WBC MCH MCHC RDW Lymph % (Auto) Lymph # (Auto) Baso # (Auto) Seg Neutrophils % Seg Neuts % (Manual) Lymphocytes % (Manual) Seg Neutrophils # Seg Neutrophils # Man Lymphocytes # (Manual) D-Dimer ABG pH POC ABG pO2 ABG pO2 ABG HCO3 ABG O2 Saturation ABG Base Excess ABG Oxyhemoglobin ABG Sodium ABG Chloride ABG Glucose Oxyhemoglobin Carboxyhemoglobin Sodium Potassium Chloride Carbon Dioxide BUN Creatinine Glucose POC Glucose 143 H 204 H 202 H Hemoglobin A1c Ferritin AST ALT Alkaline Phosphatase Lactate Dehydrogenase C-Reactive Protein Total Protein Albumin Arterial Blood Glucose Coronavirus (PCR) 05/15/21 05/15/21 05/15/21 05:05 11:12 16:39 WBC MCH MCHC RDW Lymph % (Auto) Lymph # (Auto) Baso # (Auto) Seg Neutrophils % Seg Neuts % (Manual) Lymphocytes % (Manual) Seg Neutrophils # Seg Neutrophils # Man Lymphocytes # (Manual) D-Dimer ABG pH POC ABG pO2 ABG pO2 ABG HCO3 ABG O2 Saturation ABG Base Excess ABG Oxyhemoglobin ABG Sodium ABG Chloride ABG Glucose Oxyhemoglobin Carboxyhemoglobin Sodium Potassium Chloride Carbon Dioxide BUN Creatinine Glucose POC Glucose 125 H 201 H 241 H Hemoglobin A1c Ferritin AST ALT Alkaline Phosphatase Lactate Dehydrogenase C-Reactive Protein Total Protein Albumin Arterial Blood Glucose Coronavirus (PCR) 05/15/21 05/16/21 05/16/21 21:31 05:04 10:40 WBC MCH MCHC RDW Lymph % (Auto) Lymph # (Auto) Baso # (Auto) Seg Neutrophils % Seg Neuts % (Manual) Lymphocytes % (Manual) Seg Neutrophils # Seg Neutrophils # Man Lymphocytes # (Manual) D-Dimer ABG pH POC ABG pO2 ABG pO2 ABG HCO3 ABG O2 Saturation ABG Base Excess ABG Oxyhemoglobin ABG Sodium ABG Chloride ABG Glucose Oxyhemoglobin Carboxyhemoglobin Sodium Potassium Chloride Carbon Dioxide BUN Creatinine Glucose POC Glucose 234 H 123 H 231 H Hemoglobin A1c Ferritin AST ALT Alkaline Phosphatase Lactate Dehydrogenase C-Reactive Protein Total Protein Albumin Arterial Blood Glucose Coronavirus (PCR) 05/16/21 05/16/21 05/17/21 18:23 21:29 06:20 WBC MCH MCHC RDW 18.8 H Lymph % (Auto) 10.2 L Lymph # (Auto) 0.8 L Baso # (Auto) Seg Neutrophils % 85.8 H Seg Neuts % (Manual) Lymphocytes % (Manual) Seg Neutrophils # Seg Neutrophils # Man Lymphocytes # (Manual) D-Dimer ABG pH POC ABG pO2 ABG pO2 ABG HCO3 ABG O2 Saturation ABG Base Excess ABG Oxyhemoglobin ABG Sodium ABG Chloride ABG Glucose Oxyhemoglobin Carboxyhemoglobin Sodium Potassium Chloride Carbon Dioxide BUN Creatinine Glucose POC Glucose 266 H 234 H Hemoglobin A1c Ferritin AST ALT Alkaline Phosphatase Lactate Dehydrogenase C-Reactive Protein Total Protein Albumin Arterial Blood Glucose Coronavirus (PCR) 05/17/21 05/17/21 05/17/21 06:20 11:06 16:36 WBC MCH MCHC RDW Lymph % (Auto) Lymph # (Auto) Baso # (Auto) Seg Neutrophils % Seg Neuts % (Manual) Lymphocytes % (Manual) Seg Neutrophils # Seg Neutrophils # Man Lymphocytes # (Manual) D-Dimer ABG pH POC ABG pO2 ABG pO2 ABG HCO3 ABG O2 Saturation ABG Base Excess ABG Oxyhemoglobin ABG Sodium ABG Chloride ABG Glucose Oxyhemoglobin Carboxyhemoglobin Sodium Potassium Chloride Carbon Dioxide 33 H BUN Creatinine 0.2 L Glucose 101 H POC Glucose 209 H 180 H Hemoglobin A1c Ferritin AST ALT Alkaline Phosphatase Lactate Dehydrogenase C-Reactive Protein Total Protein Albumin Arterial Blood Glucose Coronavirus (PCR) 05/17/21 05/18/21 05/18/21 21:06 12:00 15:06 WBC MCH MCHC RDW Lymph % (Auto) Lymph # (Auto) Baso # (Auto) Seg Neutrophils % Seg Neuts % (Manual) Lymphocytes % (Manual) Seg Neutrophils # Seg Neutrophils # Man Lymphocytes # (Manual) D-Dimer 874.02 H ABG pH POC ABG pO2 ABG pO2 ABG HCO3 ABG O2 Saturation ABG Base Excess ABG Oxyhemoglobin ABG Sodium ABG Chloride ABG Glucose Oxyhemoglobin Carboxyhemoglobin Sodium Potassium Chloride Carbon Dioxide BUN Creatinine Glucose POC Glucose 256 H 139 H Hemoglobin A1c Ferritin AST ALT Alkaline Phosphatase Lactate Dehydrogenase C-Reactive Protein Total Protein Albumin Arterial Blood Glucose Coronavirus (PCR) 05/18/21 05/18/21 05/18/21 15:06 15:06 16:08 WBC MCH MCHC RDW Lymph % (Auto) Lymph # (Auto) Baso # (Auto) Seg Neutrophils % Seg Neuts % (Manual) Lymphocytes % (Manual) Seg Neutrophils # Seg Neutrophils # Man Lymphocytes # (Manual) D-Dimer ABG pH POC ABG pO2 ABG pO2 ABG HCO3 ABG O2 Saturation ABG Base Excess ABG Oxyhemoglobin ABG Sodium ABG Chloride ABG Glucose Oxyhemoglobin Carboxyhemoglobin Sodium Potassium Chloride Carbon Dioxide BUN Creatinine Glucose POC Glucose 178 H Hemoglobin A1c Ferritin 289.6 H AST ALT Alkaline Phosphatase Lactate Dehydrogenase 605 H C-Reactive Protein Total Protein Albumin Arterial Blood Glucose Coronavirus (PCR) 05/18/21 05/19/21 05/19/21 21:22 11:57 15:26 WBC MCH MCHC RDW Lymph % (Auto) Lymph # (Auto) Baso # (Auto) Seg Neutrophils % Seg Neuts % (Manual) Lymphocytes % (Manual) Seg Neutrophils # Seg Neutrophils # Man Lymphocytes # (Manual) D-Dimer ABG pH POC ABG pO2 ABG pO2 ABG HCO3 ABG O2 Saturation ABG Base Excess ABG Oxyhemoglobin ABG Sodium ABG Chloride ABG Glucose Oxyhemoglobin Carboxyhemoglobin Sodium Potassium Chloride Carbon Dioxide BUN Creatinine Glucose POC Glucose 241 H 201 H 209 H Hemoglobin A1c Ferritin AST ALT Alkaline Phosphatase Lactate Dehydrogenase C-Reactive Protein Total Protein Albumin Arterial Blood Glucose Coronavirus (PCR) 05/19/21 05/20/21 05/20/21 20:59 07:38 08:01 WBC MCH MCHC RDW 19.7 H Lymph % (Auto) 8.3 L Lymph # (Auto) 0.8 L Baso # (Auto) Seg Neutrophils % 88.6 H Seg Neuts % (Manual) Lymphocytes % (Manual) Seg Neutrophils # 8.4 H Seg Neutrophils # Man Lymphocytes # (Manual) D-Dimer ABG pH POC ABG pO2 ABG pO2 ABG HCO3 ABG O2 Saturation ABG Base Excess ABG Oxyhemoglobin ABG Sodium ABG Chloride ABG Glucose Oxyhemoglobin Carboxyhemoglobin Sodium Potassium Chloride Carbon Dioxide BUN Creatinine Glucose POC Glucose 226 H 130 H Hemoglobin A1c Ferritin AST ALT Alkaline Phosphatase Lactate Dehydrogenase C-Reactive Protein Total Protein Albumin Arterial Blood Glucose Coronavirus (PCR) 05/20/21 05/20/21 05/20/21 08:01 11:00 16:43 WBC MCH MCHC RDW Lymph % (Auto) Lymph # (Auto) Baso # (Auto) Seg Neutrophils % Seg Neuts % (Manual) Lymphocytes % (Manual) Seg Neutrophils # Seg Neutrophils # Man Lymphocytes # (Manual) D-Dimer ABG pH POC ABG pO2 ABG pO2 ABG HCO3 ABG O2 Saturation ABG Base Excess ABG Oxyhemoglobin ABG Sodium ABG Chloride ABG Glucose Oxyhemoglobin Carboxyhemoglobin Sodium Potassium Chloride Carbon Dioxide BUN 18 H Creatinine 0.2 L Glucose 132 H POC Glucose 237 H 240 H Hemoglobin A1c Ferritin AST ALT Alkaline Phosphatase Lactate Dehydrogenase C-Reactive Protein Total Protein Albumin Arterial Blood Glucose Coronavirus (PCR) 05/20/21 05/21/21 05/21/21 21:21 07:35 11:32 WBC MCH MCHC RDW Lymph % (Auto) Lymph # (Auto) Baso # (Auto) Seg Neutrophils % Seg Neuts % (Manual) Lymphocytes % (Manual) Seg Neutrophils # Seg Neutrophils # Man Lymphocytes # (Manual) D-Dimer ABG pH POC ABG pO2 ABG pO2 ABG HCO3 ABG O2 Saturation ABG Base Excess ABG Oxyhemoglobin ABG Sodium ABG Chloride ABG Glucose Oxyhemoglobin Carboxyhemoglobin Sodium Potassium Chloride Carbon Dioxide BUN Creatinine Glucose POC Glucose 241 H 162 H 171 H Hemoglobin A1c Ferritin AST ALT Alkaline Phosphatase Lactate Dehydrogenase C-Reactive Protein Total Protein Albumin Arterial Blood Glucose Coronavirus (PCR) 05/21/21 05/21/21 05/22/21 16:22 20:43 05:14 WBC MCH MCHC RDW Lymph % (Auto) Lymph # (Auto) Baso # (Auto) Seg Neutrophils % Seg Neuts % (Manual) Lymphocytes % (Manual) Seg Neutrophils # Seg Neutrophils # Man Lymphocytes # (Manual) D-Dimer ABG pH POC ABG pO2 ABG pO2 ABG HCO3 ABG O2 Saturation ABG Base Excess ABG Oxyhemoglobin ABG Sodium ABG Chloride ABG Glucose Oxyhemoglobin Carboxyhemoglobin Sodium Potassium Chloride Carbon Dioxide BUN Creatinine Glucose POC Glucose 244 H 299 H 140 H Hemoglobin A1c Ferritin AST ALT Alkaline Phosphatase Lactate Dehydrogenase C-Reactive Protein Total Protein Albumin Arterial Blood Glucose Coronavirus (PCR) 05/22/21 05/22/21 05/22/21 08:45 11:54 16:15 WBC MCH MCHC RDW Lymph % (Auto) Lymph # (Auto) Baso # (Auto) Seg Neutrophils % Seg Neuts % (Manual) Lymphocytes % (Manual) Seg Neutrophils # Seg Neutrophils # Man Lymphocytes # (Manual) D-Dimer ABG pH POC ABG pO2 ABG pO2 ABG HCO3 ABG O2 Saturation ABG Base Excess ABG Oxyhemoglobin ABG Sodium ABG Chloride ABG Glucose Oxyhemoglobin Carboxyhemoglobin Sodium Potassium Chloride Carbon Dioxide BUN Creatinine Glucose POC Glucose 133 H 265 H 221 H Hemoglobin A1c Ferritin AST ALT Alkaline Phosphatase Lactate Dehydrogenase C-Reactive Protein Total Protein Albumin Arterial Blood Glucose Coronavirus (PCR) 05/22/21 05/23/21 05/23/21 21:43 08:20 09:50 WBC MCH MCHC RDW Lymph % (Auto) Lymph # (Auto) Baso # (Auto) Seg Neutrophils % Seg Neuts % (Manual) Lymphocytes % (Manual) Seg Neutrophils # Seg Neutrophils # Man Lymphocytes # (Manual) D-Dimer 910.38 H ABG pH POC ABG pO2 ABG pO2 ABG HCO3 ABG O2 Saturation ABG Base Excess ABG Oxyhemoglobin ABG Sodium ABG Chloride ABG Glucose Oxyhemoglobin Carboxyhemoglobin Sodium Potassium Chloride Carbon Dioxide BUN Creatinine Glucose POC Glucose 262 H 140 H Hemoglobin A1c Ferritin AST ALT Alkaline Phosphatase Lactate Dehydrogenase C-Reactive Protein Total Protein Albumin Arterial Blood Glucose Coronavirus (PCR) 05/23/21 05/23/21 05/23/21 09:50 09:50 10:52 WBC MCH MCHC RDW Lymph % (Auto) Lymph # (Auto) Baso # (Auto) Seg Neutrophils % Seg Neuts % (Manual) Lymphocytes % (Manual) Seg Neutrophils # Seg Neutrophils # Man Lymphocytes # (Manual) D-Dimer ABG pH POC ABG pO2 ABG pO2 ABG HCO3 ABG O2 Saturation ABG Base Excess ABG Oxyhemoglobin ABG Sodium ABG Chloride ABG Glucose Oxyhemoglobin Carboxyhemoglobin Sodium Potassium Chloride Carbon Dioxide BUN Creatinine Glucose POC Glucose 241 H Hemoglobin A1c Ferritin 244.9 H AST ALT Alkaline Phosphatase Lactate Dehydrogenase 584 H C-Reactive Protein Total Protein Albumin Arterial Blood Glucose Coronavirus (PCR) 05/23/21 05/23/21 05/24/21 17:24 21:52 07:44 WBC MCH MCHC RDW Lymph % (Auto) Lymph # (Auto) Baso # (Auto) Seg Neutrophils % Seg Neuts % (Manual) Lymphocytes % (Manual) Seg Neutrophils # Seg Neutrophils # Man Lymphocytes # (Manual) D-Dimer ABG pH POC ABG pO2 ABG pO2 ABG HCO3 ABG O2 Saturation ABG Base Excess ABG Oxyhemoglobin ABG Sodium ABG Chloride ABG Glucose Oxyhemoglobin Carboxyhemoglobin Sodium Potassium Chloride Carbon Dioxide BUN Creatinine Glucose POC Glucose 197 H 289 H 161 H Hemoglobin A1c Ferritin AST ALT Alkaline Phosphatase Lactate Dehydrogenase C-Reactive Protein Total Protein Albumin Arterial Blood Glucose Coronavirus (PCR) 05/24/21 05/24/21 05/24/21 11:17 17:51 21:26 WBC MCH MCHC RDW Lymph % (Auto) Lymph # (Auto) Baso # (Auto) Seg Neutrophils % Seg Neuts % (Manual) Lymphocytes % (Manual) Seg Neutrophils # Seg Neutrophils # Man Lymphocytes # (Manual) D-Dimer ABG pH POC ABG pO2 ABG pO2 ABG HCO3 ABG O2 Saturation ABG Base Excess ABG Oxyhemoglobin ABG Sodium ABG Chloride ABG Glucose Oxyhemoglobin Carboxyhemoglobin Sodium Potassium Chloride Carbon Dioxide BUN Creatinine Glucose POC Glucose 308 H 175 H 198 H Hemoglobin A1c Ferritin AST ALT Alkaline Phosphatase Lactate Dehydrogenase C-Reactive Protein Total Protein Albumin Arterial Blood Glucose Coronavirus (PCR) 05/25/21 05/25/21 05/25/21 08:14 11:13 17:13 WBC MCH MCHC RDW Lymph % (Auto) Lymph # (Auto) Baso # (Auto) Seg Neutrophils % Seg Neuts % (Manual) Lymphocytes % (Manual) Seg Neutrophils # Seg Neutrophils # Man Lymphocytes # (Manual) D-Dimer ABG pH POC ABG pO2 ABG pO2 ABG HCO3 ABG O2 Saturation ABG Base Excess ABG Oxyhemoglobin ABG Sodium ABG Chloride ABG Glucose Oxyhemoglobin Carboxyhemoglobin Sodium Potassium Chloride Carbon Dioxide BUN Creatinine Glucose POC Glucose 203 H 339 H 235 H Hemoglobin A1c Ferritin AST ALT Alkaline Phosphatase Lactate Dehydrogenase C-Reactive Protein Total Protein Albumin Arterial Blood Glucose Coronavirus (PCR) 05/25/21 05/26/21 05/26/21 21:03 07:33 11:19 WBC MCH MCHC RDW Lymph % (Auto) Lymph # (Auto) Baso # (Auto) Seg Neutrophils % Seg Neuts % (Manual) Lymphocytes % (Manual) Seg Neutrophils # Seg Neutrophils # Man Lymphocytes # (Manual) D-Dimer ABG pH POC ABG pO2 ABG pO2 ABG HCO3 ABG O2 Saturation ABG Base Excess ABG Oxyhemoglobin ABG Sodium ABG Chloride ABG Glucose Oxyhemoglobin Carboxyhemoglobin Sodium Potassium Chloride Carbon Dioxide BUN Creatinine Glucose POC Glucose 263 H 156 H 288 H Hemoglobin A1c Ferritin AST ALT Alkaline Phosphatase Lactate Dehydrogenase C-Reactive Protein Total Protein Albumin Arterial Blood Glucose Coronavirus (PCR) 05/26/21 05/26/21 05/27/21 16:26 20:55 07:38 WBC MCH MCHC RDW Lymph % (Auto) Lymph # (Auto) Baso # (Auto) Seg Neutrophils % Seg Neuts % (Manual) Lymphocytes % (Manual) Seg Neutrophils # Seg Neutrophils # Man Lymphocytes # (Manual) D-Dimer ABG pH POC ABG pO2 ABG pO2 ABG HCO3 ABG O2 Saturation ABG Base Excess ABG Oxyhemoglobin ABG Sodium ABG Chloride ABG Glucose Oxyhemoglobin Carboxyhemoglobin Sodium Potassium Chloride Carbon Dioxide BUN Creatinine Glucose POC Glucose 286 H 293 H 115 H Hemoglobin A1c Ferritin AST ALT Alkaline Phosphatase Lactate Dehydrogenase C-Reactive Protein Total Protein Albumin Arterial Blood Glucose Coronavirus (PCR) 05/27/21 05/27/21 05/27/21 11:46 15:58 21:02 WBC MCH MCHC RDW Lymph % (Auto) Lymph # (Auto) Baso # (Auto) Seg Neutrophils % Seg Neuts % (Manual) Lymphocytes % (Manual) Seg Neutrophils # Seg Neutrophils # Man Lymphocytes # (Manual) D-Dimer ABG pH POC ABG pO2 ABG pO2 ABG HCO3 ABG O2 Saturation ABG Base Excess ABG Oxyhemoglobin ABG Sodium ABG Chloride ABG Glucose Oxyhemoglobin Carboxyhemoglobin Sodium Potassium Chloride Carbon Dioxide BUN Creatinine Glucose POC Glucose 260 H 318 H 246 H Hemoglobin A1c Ferritin AST ALT Alkaline Phosphatase Lactate Dehydrogenase C-Reactive Protein Total Protein Albumin Arterial Blood Glucose Coronavirus (PCR) 05/28/21 05/28/21 05/28/21 07:34 11:31 16:36 WBC MCH MCHC RDW Lymph % (Auto) Lymph # (Auto) Baso # (Auto) Seg Neutrophils % Seg Neuts % (Manual) Lymphocytes % (Manual) Seg Neutrophils # Seg Neutrophils # Man Lymphocytes # (Manual) D-Dimer ABG pH POC ABG pO2 ABG pO2 ABG HCO3 ABG O2 Saturation ABG Base Excess ABG Oxyhemoglobin ABG Sodium ABG Chloride ABG Glucose Oxyhemoglobin Carboxyhemoglobin Sodium Potassium Chloride Carbon Dioxide BUN Creatinine Glucose POC Glucose 185 H 297 H 183 H Hemoglobin A1c Ferritin AST ALT Alkaline Phosphatase Lactate Dehydrogenase C-Reactive Protein Total Protein Albumin Arterial Blood Glucose Coronavirus (PCR) 05/28/21 05/29/21 05/29/21 21:19 07:34 11:19 WBC MCH MCHC RDW Lymph % (Auto) Lymph # (Auto) Baso # (Auto) Seg Neutrophils % Seg Neuts % (Manual) Lymphocytes % (Manual) Seg Neutrophils # Seg Neutrophils # Man Lymphocytes # (Manual) D-Dimer ABG pH POC ABG pO2 ABG pO2 ABG HCO3 ABG O2 Saturation ABG Base Excess ABG Oxyhemoglobin ABG Sodium ABG Chloride ABG Glucose Oxyhemoglobin Carboxyhemoglobin Sodium Potassium Chloride Carbon Dioxide BUN Creatinine Glucose POC Glucose 274 H 139 H 293 H Hemoglobin A1c Ferritin AST ALT Alkaline Phosphatase Lactate Dehydrogenase C-Reactive Protein Total Protein Albumin Arterial Blood Glucose Coronavirus (PCR) 05/29/21 05/29/21 05/30/21 16:36 22:44 05:55 WBC MCH MCHC RDW 21.3 H Lymph % (Auto) 8.0 L Lymph # (Auto) 0.6 L Baso # (Auto) Seg Neutrophils % 88.6 H Seg Neuts % (Manual) Lymphocytes % (Manual) Seg Neutrophils # Seg Neutrophils # Man Lymphocytes # (Manual) D-Dimer ABG pH POC ABG pO2 ABG pO2 ABG HCO3 ABG O2 Saturation ABG Base Excess ABG Oxyhemoglobin ABG Sodium ABG Chloride ABG Glucose Oxyhemoglobin Carboxyhemoglobin Sodium Potassium Chloride Carbon Dioxide BUN Creatinine Glucose POC Glucose 299 H 160 H Hemoglobin A1c Ferritin AST ALT Alkaline Phosphatase Lactate Dehydrogenase C-Reactive Protein Total Protein Albumin Arterial Blood Glucose Coronavirus (PCR) 05/30/21 05/30/21 05/30/21 05:55 08:04 11:13 WBC MCH MCHC RDW Lymph % (Auto) Lymph # (Auto) Baso # (Auto) Seg Neutrophils % Seg Neuts % (Manual) Lymphocytes % (Manual) Seg Neutrophils # Seg Neutrophils # Man Lymphocytes # (Manual) D-Dimer ABG pH POC ABG pO2 ABG pO2 ABG HCO3 ABG O2 Saturation ABG Base Excess ABG Oxyhemoglobin ABG Sodium ABG Chloride ABG Glucose Oxyhemoglobin Carboxyhemoglobin Sodium Potassium Chloride Carbon Dioxide BUN 19 H Creatinine 0.2 L Glucose 209 H POC Glucose 157 H 275 H Hemoglobin A1c Ferritin AST ALT Alkaline Phosphatase Lactate Dehydrogenase C-Reactive Protein Total Protein Albumin Arterial Blood Glucose Coronavirus (PCR) 05/30/21 05/30/21 05/31/21 17:08 22:12 07:36 WBC MCH MCHC RDW Lymph % (Auto) Lymph # (Auto) Baso # (Auto) Seg Neutrophils % Seg Neuts % (Manual) Lymphocytes % (Manual) Seg Neutrophils # Seg Neutrophils # Man Lymphocytes # (Manual) D-Dimer ABG pH POC ABG pO2 ABG pO2 ABG HCO3 ABG O2 Saturation ABG Base Excess ABG Oxyhemoglobin ABG Sodium ABG Chloride ABG Glucose Oxyhemoglobin Carboxyhemoglobin Sodium Potassium Chloride Carbon Dioxide BUN Creatinine Glucose POC Glucose 154 H 275 H 138 H Hemoglobin A1c Ferritin AST ALT Alkaline Phosphatase Lactate Dehydrogenase C-Reactive Protein Total Protein Albumin Arterial Blood Glucose Coronavirus (PCR) 05/31/21 05/31/21 05/31/21 11:17 16:55 21:25 WBC MCH MCHC RDW Lymph % (Auto) Lymph # (Auto) Baso # (Auto) Seg Neutrophils % Seg Neuts % (Manual) Lymphocytes % (Manual) Seg Neutrophils # Seg Neutrophils # Man Lymphocytes # (Manual) D-Dimer ABG pH POC ABG pO2 ABG pO2 ABG HCO3 ABG O2 Saturation ABG Base Excess ABG Oxyhemoglobin ABG Sodium ABG Chloride ABG Glucose Oxyhemoglobin Carboxyhemoglobin Sodium Potassium Chloride Carbon Dioxide BUN Creatinine Glucose POC Glucose 258 H 215 H 318 H Hemoglobin A1c Ferritin AST ALT Alkaline Phosphatase Lactate Dehydrogenase C-Reactive Protein Total Protein Albumin Arterial Blood Glucose Coronavirus (PCR) 06/01/21 06/01/21 06/01/21 07:23 11:38 16:52 WBC MCH MCHC RDW Lymph % (Auto) Lymph # (Auto) Baso # (Auto) Seg Neutrophils % Seg Neuts % (Manual) Lymphocytes % (Manual) Seg Neutrophils # Seg Neutrophils # Man Lymphocytes # (Manual) D-Dimer ABG pH POC ABG pO2 ABG pO2 ABG HCO3 ABG O2 Saturation ABG Base Excess ABG Oxyhemoglobin ABG Sodium ABG Chloride ABG Glucose Oxyhemoglobin Carboxyhemoglobin Sodium Potassium Chloride Carbon Dioxide BUN Creatinine Glucose POC Glucose 157 H 259 H 150 H Hemoglobin A1c Ferritin AST ALT Alkaline Phosphatase Lactate Dehydrogenase C-Reactive Protein Total Protein Albumin Arterial Blood Glucose Coronavirus (PCR) 06/01/21 06/02/21 06/02/21 23:16 05:34 05:34 WBC MCH MCHC RDW 21.3 H Lymph % (Auto) 9.6 L Lymph # (Auto) 0.6 L Baso # (Auto) Seg Neutrophils % 86.2 H Seg Neuts % (Manual) Lymphocytes % (Manual) Seg Neutrophils # Seg Neutrophils # Man Lymphocytes # (Manual) D-Dimer ABG pH POC ABG pO2 ABG pO2 ABG HCO3 ABG O2 Saturation ABG Base Excess ABG Oxyhemoglobin ABG Sodium ABG Chloride ABG Glucose Oxyhemoglobin Carboxyhemoglobin Sodium 136 L Potassium Chloride Carbon Dioxide BUN Creatinine 0.2 L Glucose 186 H POC Glucose 247 H Hemoglobin A1c Ferritin AST ALT 69 H Alkaline Phosphatase Lactate Dehydrogenase C-Reactive Protein Total Protein 6.1 L Albumin 3.2 L Arterial Blood Glucose Coronavirus (PCR) 06/02/21 06/02/21 06/02/21 11:25 18:23 21:32 WBC MCH MCHC RDW Lymph % (Auto) Lymph # (Auto) Baso # (Auto) Seg Neutrophils % Seg Neuts % (Manual) Lymphocytes % (Manual) Seg Neutrophils # Seg Neutrophils # Man Lymphocytes # (Manual) D-Dimer ABG pH POC ABG pO2 ABG pO2 ABG HCO3 ABG O2 Saturation ABG Base Excess ABG Oxyhemoglobin ABG Sodium ABG Chloride ABG Glucose Oxyhemoglobin Carboxyhemoglobin Sodium Potassium Chloride Carbon Dioxide BUN Creatinine Glucose POC Glucose 157 H 299 H 246 H Hemoglobin A1c Ferritin AST ALT Alkaline Phosphatase Lactate Dehydrogenase C-Reactive Protein Total Protein Albumin Arterial Blood Glucose Coronavirus (PCR) 06/03/21 06/03/21 06/03/21 08:12 12:21 17:31 WBC MCH MCHC RDW Lymph % (Auto) Lymph # (Auto) Baso # (Auto) Seg Neutrophils % Seg Neuts % (Manual) Lymphocytes % (Manual) Seg Neutrophils # Seg Neutrophils # Man Lymphocytes # (Manual) D-Dimer ABG pH POC ABG pO2 ABG pO2 ABG HCO3 ABG O2 Saturation ABG Base Excess ABG Oxyhemoglobin ABG Sodium ABG Chloride ABG Glucose Oxyhemoglobin Carboxyhemoglobin Sodium Potassium Chloride Carbon Dioxide BUN Creatinine Glucose POC Glucose 153 H 302 H 252 H Hemoglobin A1c Ferritin AST ALT Alkaline Phosphatase Lactate Dehydrogenase C-Reactive Protein Total Protein Albumin Arterial Blood Glucose Coronavirus (PCR) 06/03/21 06/04/21 06/04/21 22:08 11:12 16:01 WBC MCH MCHC RDW Lymph % (Auto) Lymph # (Auto) Baso # (Auto) Seg Neutrophils % Seg Neuts % (Manual) Lymphocytes % (Manual) Seg Neutrophils # Seg Neutrophils # Man Lymphocytes # (Manual) D-Dimer ABG pH POC ABG pO2 ABG pO2 ABG HCO3 ABG O2 Saturation ABG Base Excess ABG Oxyhemoglobin ABG Sodium ABG Chloride ABG Glucose Oxyhemoglobin Carboxyhemoglobin Sodium Potassium Chloride Carbon Dioxide BUN Creatinine Glucose POC Glucose 224 H 259 H 238 H Hemoglobin A1c Ferritin AST ALT Alkaline Phosphatase Lactate Dehydrogenase C-Reactive Protein Total Protein Albumin Arterial Blood Glucose Coronavirus (PCR) 06/04/21 06/05/21 06/05/21 21:26 05:26 05:26 WBC MCH MCHC RDW Lymph % (Auto) Lymph # (Auto) Baso # (Auto) Seg Neutrophils % Seg Neuts % (Manual) Lymphocytes % (Manual) Seg Neutrophils # Seg Neutrophils # Man Lymphocytes # (Manual) D-Dimer 488.49 H ABG pH POC ABG pO2 ABG pO2 ABG HCO3 ABG O2 Saturation ABG Base Excess ABG Oxyhemoglobin ABG Sodium ABG Chloride ABG Glucose Oxyhemoglobin Carboxyhemoglobin Sodium Potassium Chloride Carbon Dioxide BUN Creatinine 0.2 L Glucose 198 H POC Glucose 257 H Hemoglobin A1c Ferritin AST ALT Alkaline Phosphatase Lactate Dehydrogenase 475 H C-Reactive Protein Total Protein Albumin Arterial Blood Glucose Coronavirus (PCR) 06/05/21 06/05/21 06/05/21 07:20 08:30 11:00 WBC MCH MCHC RDW Lymph % (Auto) Lymph # (Auto) Baso # (Auto) Seg Neutrophils % Seg Neuts % (Manual) Lymphocytes % (Manual) Seg Neutrophils # Seg Neutrophils # Man Lymphocytes # (Manual) D-Dimer ABG pH POC ABG pO2 ABG pO2 ABG HCO3 ABG O2 Saturation ABG Base Excess ABG Oxyhemoglobin ABG Sodium ABG Chloride ABG Glucose Oxyhemoglobin Carboxyhemoglobin Sodium Potassium Chloride Carbon Dioxide BUN Creatinine Glucose POC Glucose 146 H 246 H Hemoglobin A1c Ferritin AST ALT Alkaline Phosphatase Lactate Dehydrogenase C-Reactive Protein Total Protein Albumin Arterial Blood Glucose Coronavirus (PCR) Positive A 06/05/21 06/05/21 06/06/21 16:50 22:30 07:57 WBC MCH MCHC RDW Lymph % (Auto) Lymph # (Auto) Baso # (Auto) Seg Neutrophils % Seg Neuts % (Manual) Lymphocytes % (Manual) Seg Neutrophils # Seg Neutrophils # Man Lymphocytes # (Manual) D-Dimer ABG pH POC ABG pO2 ABG pO2 ABG HCO3 ABG O2 Saturation ABG Base Excess ABG Oxyhemoglobin ABG Sodium ABG Chloride ABG Glucose Oxyhemoglobin Carboxyhemoglobin Sodium Potassium Chloride Carbon Dioxide BUN Creatinine Glucose POC Glucose 240 H 174 H 120 H Hemoglobin A1c Ferritin AST ALT Alkaline Phosphatase Lactate Dehydrogenase C-Reactive Protein Total Protein Albumin Arterial Blood Glucose Coronavirus (PCR) 06/06/21 06/06/21 06/06/21 11:14 16:50 21:11 WBC MCH MCHC RDW Lymph % (Auto) Lymph # (Auto) Baso # (Auto) Seg Neutrophils % Seg Neuts % (Manual) Lymphocytes % (Manual) Seg Neutrophils # Seg Neutrophils # Man Lymphocytes # (Manual) D-Dimer ABG pH POC ABG pO2 ABG pO2 ABG HCO3 ABG O2 Saturation ABG Base Excess ABG Oxyhemoglobin ABG Sodium ABG Chloride ABG Glucose Oxyhemoglobin Carboxyhemoglobin Sodium Potassium Chloride Carbon Dioxide BUN Creatinine Glucose POC Glucose 267 H 218 H 124 H Hemoglobin A1c Ferritin AST ALT Alkaline Phosphatase Lactate Dehydrogenase C-Reactive Protein Total Protein Albumin Arterial Blood Glucose Coronavirus (PCR) 06/07/21 06/07/21 06/08/21 11:58 15:59 07:59 WBC MCH MCHC RDW Lymph % (Auto) Lymph # (Auto) Baso # (Auto) Seg Neutrophils % Seg Neuts % (Manual) Lymphocytes % (Manual) Seg Neutrophils # Seg Neutrophils # Man Lymphocytes # (Manual) D-Dimer ABG pH POC ABG pO2 ABG pO2 ABG HCO3 ABG O2 Saturation ABG Base Excess ABG Oxyhemoglobin ABG Sodium ABG Chloride ABG Glucose Oxyhemoglobin Carboxyhemoglobin Sodium Potassium Chloride Carbon Dioxide BUN Creatinine Glucose POC Glucose 219 H 208 H 192 H Hemoglobin A1c Ferritin AST ALT Alkaline Phosphatase Lactate Dehydrogenase C-Reactive Protein Total Protein Albumin Arterial Blood Glucose Coronavirus (PCR) 06/08/21 06/08/21 06/09/21 11:26 23:28 07:33 WBC MCH MCHC RDW Lymph % (Auto) Lymph # (Auto) Baso # (Auto) Seg Neutrophils % Seg Neuts % (Manual) Lymphocytes % (Manual) Seg Neutrophils # Seg Neutrophils # Man Lymphocytes # (Manual) D-Dimer ABG pH POC ABG pO2 ABG pO2 ABG HCO3 ABG O2 Saturation ABG Base Excess ABG Oxyhemoglobin ABG Sodium ABG Chloride ABG Glucose Oxyhemoglobin Carboxyhemoglobin Sodium Potassium Chloride Carbon Dioxide BUN Creatinine Glucose POC Glucose 307 H 138 H 145 H Hemoglobin A1c Ferritin AST ALT Alkaline Phosphatase Lactate Dehydrogenase C-Reactive Protein Total Protein Albumin Arterial Blood Glucose Coronavirus (PCR) 06/09/21 06/09/21 06/09/21 11:01 15:47 21:43 WBC MCH MCHC RDW Lymph % (Auto) Lymph # (Auto) Baso # (Auto) Seg Neutrophils % Seg Neuts % (Manual) Lymphocytes % (Manual) Seg Neutrophils # Seg Neutrophils # Man Lymphocytes # (Manual) D-Dimer ABG pH POC ABG pO2 ABG pO2 ABG HCO3 ABG O2 Saturation ABG Base Excess ABG Oxyhemoglobin ABG Sodium ABG Chloride ABG Glucose Oxyhemoglobin Carboxyhemoglobin Sodium Potassium Chloride Carbon Dioxide BUN Creatinine Glucose POC Glucose 266 H 305 H 223 H Hemoglobin A1c Ferritin AST ALT Alkaline Phosphatase Lactate Dehydrogenase C-Reactive Protein Total Protein Albumin Arterial Blood Glucose Coronavirus (PCR) 06/10/21 06/10/21 06/10/21 08:27 12:10 17:45 WBC MCH MCHC RDW Lymph % (Auto) Lymph # (Auto) Baso # (Auto) Seg Neutrophils % Seg Neuts % (Manual) Lymphocytes % (Manual) Seg Neutrophils # Seg Neutrophils # Man Lymphocytes # (Manual) D-Dimer ABG pH POC ABG pO2 ABG pO2 ABG HCO3 ABG O2 Saturation ABG Base Excess ABG Oxyhemoglobin ABG Sodium ABG Chloride ABG Glucose Oxyhemoglobin Carboxyhemoglobin Sodium Potassium Chloride Carbon Dioxide BUN Creatinine Glucose POC Glucose 174 H 306 H 210 H Hemoglobin A1c Ferritin AST ALT Alkaline Phosphatase Lactate Dehydrogenase C-Reactive Protein Total Protein Albumin Arterial Blood Glucose Coronavirus (PCR) 06/10/21 06/11/21 06/11/21 21:45 09:38 09:38 WBC MCH MCHC RDW 20.9 H Lymph % (Auto) Lymph # (Auto) Baso # (Auto) Seg Neutrophils % Seg Neuts % (Manual) Lymphocytes % (Manual) Seg Neutrophils # Seg Neutrophils # Man Lymphocytes # (Manual) D-Dimer ABG pH POC ABG pO2 ABG pO2 ABG HCO3 ABG O2 Saturation ABG Base Excess ABG Oxyhemoglobin ABG Sodium ABG Chloride ABG Glucose Oxyhemoglobin Carboxyhemoglobin Sodium 135 L Potassium Chloride 90.8 L Carbon Dioxide 36 H BUN 29 H Creatinine 0.2 L Glucose 258 H POC Glucose 262 H Hemoglobin A1c Ferritin AST ALT Alkaline Phosphatase Lactate Dehydrogenase C-Reactive Protein Total Protein Albumin Arterial Blood Glucose Coronavirus (PCR) 06/11/21 06/11/21 06/11/21 11:20 15:49 22:57 WBC MCH MCHC RDW Lymph % (Auto) Lymph # (Auto) Baso # (Auto) Seg Neutrophils % Seg Neuts % (Manual) Lymphocytes % (Manual) Seg Neutrophils # Seg Neutrophils # Man Lymphocytes # (Manual) D-Dimer ABG pH POC ABG pO2 ABG pO2 ABG HCO3 ABG O2 Saturation ABG Base Excess ABG Oxyhemoglobin ABG Sodium ABG Chloride ABG Glucose Oxyhemoglobin Carboxyhemoglobin Sodium Potassium Chloride Carbon Dioxide BUN Creatinine Glucose POC Glucose 269 H 206 H 211 H Hemoglobin A1c Ferritin AST ALT Alkaline Phosphatase Lactate Dehydrogenase C-Reactive Protein Total Protein Albumin Arterial Blood Glucose Coronavirus (PCR) 06/12/21 06/12/21 06/12/21 08:07 11:24 18:08 WBC MCH MCHC RDW Lymph % (Auto) Lymph # (Auto) Baso # (Auto) Seg Neutrophils % Seg Neuts % (Manual) Lymphocytes % (Manual) Seg Neutrophils # Seg Neutrophils # Man Lymphocytes # (Manual) D-Dimer ABG pH POC ABG pO2 ABG pO2 ABG HCO3 ABG O2 Saturation ABG Base Excess ABG Oxyhemoglobin ABG Sodium ABG Chloride ABG Glucose Oxyhemoglobin Carboxyhemoglobin Sodium Potassium Chloride Carbon Dioxide BUN Creatinine Glucose POC Glucose 149 H 270 H 166 H Hemoglobin A1c Ferritin AST ALT Alkaline Phosphatase Lactate Dehydrogenase C-Reactive Protein Total Protein Albumin Arterial Blood Glucose Coronavirus (PCR) 06/12/21 06/13/21 06/13/21 20:22 07:50 11:18 WBC MCH MCHC RDW Lymph % (Auto) Lymph # (Auto) Baso # (Auto) Seg Neutrophils % Seg Neuts % (Manual) Lymphocytes % (Manual) Seg Neutrophils # Seg Neutrophils # Man Lymphocytes # (Manual) D-Dimer ABG pH POC ABG pO2 ABG pO2 ABG HCO3 ABG O2 Saturation ABG Base Excess ABG Oxyhemoglobin ABG Sodium ABG Chloride ABG Glucose Oxyhemoglobin Carboxyhemoglobin Sodium Potassium Chloride Carbon Dioxide BUN Creatinine Glucose POC Glucose 155 H 163 H 293 H Hemoglobin A1c Ferritin AST ALT Alkaline Phosphatase Lactate Dehydrogenase C-Reactive Protein Total Protein Albumin Arterial Blood Glucose Coronavirus (PCR) 06/13/21 06/13/21 06/14/21 16:41 21:00 07:41 WBC MCH MCHC RDW Lymph % (Auto) Lymph # (Auto) Baso # (Auto) Seg Neutrophils % Seg Neuts % (Manual) Lymphocytes % (Manual) Seg Neutrophils # Seg Neutrophils # Man Lymphocytes # (Manual) D-Dimer ABG pH POC ABG pO2 ABG pO2 ABG HCO3 ABG O2 Saturation ABG Base Excess ABG Oxyhemoglobin ABG Sodium ABG Chloride ABG Glucose Oxyhemoglobin Carboxyhemoglobin Sodium Potassium Chloride Carbon Dioxide BUN Creatinine Glucose POC Glucose 232 H 183 H 52 L Hemoglobin A1c Ferritin AST ALT Alkaline Phosphatase Lactate Dehydrogenase C-Reactive Protein Total Protein Albumin Arterial Blood Glucose Coronavirus (PCR) 06/14/21 06/14/21 06/14/21 11:44 17:44 21:44 WBC MCH MCHC RDW Lymph % (Auto) Lymph # (Auto) Baso # (Auto) Seg Neutrophils % Seg Neuts % (Manual) Lymphocytes % (Manual) Seg Neutrophils # Seg Neutrophils # Man Lymphocytes # (Manual) D-Dimer ABG pH POC ABG pO2 ABG pO2 ABG HCO3 ABG O2 Saturation ABG Base Excess ABG Oxyhemoglobin ABG Sodium ABG Chloride ABG Glucose Oxyhemoglobin Carboxyhemoglobin Sodium Potassium Chloride Carbon Dioxide BUN Creatinine Glucose POC Glucose 205 H 293 H 288 H Hemoglobin A1c Ferritin AST ALT Alkaline Phosphatase Lactate Dehydrogenase C-Reactive Protein Total Protein Albumin Arterial Blood Glucose Coronavirus (PCR) 06/15/21 06/15/21 06/15/21 08:00 08:00 11:40 WBC MCH 33 H MCHC 35 H RDW 20.3 H Lymph % (Auto) Lymph # (Auto) Baso # (Auto) Seg Neutrophils % Seg Neuts % (Manual) Lymphocytes % (Manual) Seg Neutrophils # Seg Neutrophils # Man Lymphocytes # (Manual) D-Dimer ABG pH POC ABG pO2 ABG pO2 ABG HCO3 ABG O2 Saturation ABG Base Excess ABG Oxyhemoglobin ABG Sodium ABG Chloride ABG Glucose Oxyhemoglobin Carboxyhemoglobin Sodium Potassium 3.2 L Chloride 95.3 L Carbon Dioxide 32 H BUN 23 H Creatinine 0.2 L Glucose 103 H POC Glucose 204 H Hemoglobin A1c Ferritin AST ALT Alkaline Phosphatase Lactate Dehydrogenase C-Reactive Protein Total Protein Albumin Arterial Blood Glucose Coronavirus (PCR) 06/15/21 06/15/21 06/16/21 16:17 22:00 11:43 WBC MCH MCHC RDW Lymph % (Auto) Lymph # (Auto) Baso # (Auto) Seg Neutrophils % Seg Neuts % (Manual) Lymphocytes % (Manual) Seg Neutrophils # Seg Neutrophils # Man Lymphocytes # (Manual) D-Dimer ABG pH POC ABG pO2 ABG pO2 ABG HCO3 ABG O2 Saturation ABG Base Excess ABG Oxyhemoglobin ABG Sodium ABG Chloride ABG Glucose Oxyhemoglobin Carboxyhemoglobin Sodium Potassium Chloride Carbon Dioxide BUN Creatinine Glucose POC Glucose 295 H 233 H 201 H Hemoglobin A1c Ferritin AST ALT Alkaline Phosphatase Lactate Dehydrogenase C-Reactive Protein Total Protein Albumin Arterial Blood Glucose Coronavirus (PCR) 06/16/21 06/16/21 17:21 21:27 WBC MCH MCHC RDW Lymph % (Auto) Lymph # (Auto) Baso # (Auto) Seg Neutrophils % Seg Neuts % (Manual) Lymphocytes % (Manual) Seg Neutrophils # Seg Neutrophils # Man Lymphocytes # (Manual) D-Dimer ABG pH POC ABG pO2 ABG pO2 ABG HCO3 ABG O2 Saturation ABG Base Excess ABG Oxyhemoglobin ABG Sodium ABG Chloride ABG Glucose Oxyhemoglobin Carboxyhemoglobin Sodium Potassium Chloride Carbon Dioxide BUN Creatinine Glucose POC Glucose 299 H 290 H Hemoglobin A1c Ferritin AST ALT Alkaline Phosphatase Lactate Dehydrogenase C-Reactive Protein Total Protein Albumin Arterial Blood Glucose Coronavirus (PCR) Chest x-ray: report reviewed, image reviewed
[2021-06-17] MEDS: INSULIN LISPRO 100 UNIT/ML SUB-Q SCH ×4 (08:01→23:09)
[2021-06-17] MEDS: ZINC SULFATE 220 MG CAP PO SCH ×2 (09:36→21:24)
[2021-06-17] MEDS: predniSONE 20 MG TAB PO SCH (09:36)
[2021-06-17] MEDS: ASCORBIC ACID 500 MG TAB PO SCH (09:36)
[2021-06-17] MEDS: DOCUSATE SODIUM 100 MG CAP PO SCH ×2 (09:36→21:25)
[2021-06-17] MEDS: FUROSEMIDE 40 MG/4 ML INJ IV SCH (09:36)
[2021-06-17] MEDS: CHOLECALCIFEROL (VIT D3) 1000 UNIT (25 mcg) TAB PO SCH (09:36)
[2021-06-17] MEDS: clonazePAM 0.5 MG TAB PO PRN (09:48)
--- NOTE | 2021-06-17 12:58 | Progress Note ---
Assessment and Plan 50-year-old female past medical history obesity, GERD, hyperlipidemia brought to the hospital due to shortness of breath, fevers, malaise, typical Covid symptoms for approximate 1 week prior to admission and was progressively worse since on set. She is found to have saturations of 86% on presentation. Afebrile since admission with a white count 7.5. Covid test was positive positive along with normal renal function and normal procalcitonin. Chest x-ray: Bilateral pneumonia. Patient initiated on Covid protocol, ID and pulmonary care following Assessment and plan: --Acute hypoxic resp failure due to covid19 -S/p BiPAP, now discontinued -Currently on high per nasal cannula -See RT notes for titration -Albuterol as needed -Pulmonary hygiene -Pulmonology following CTA chest ordered, patient could not tolerate --covid19 pna; sepsis; -zinc/vitC/D -cont steroid; wean as appropriate -Infectious disease consulted, -S/p Actemra and remdesivir -Trend temperature and WBC curve -Follow culture data --Oral candidiasis Nystatin solution ordered. -- hyponatremia -Trend BMP -Replace electrolytes as needed -Monitor intake and output -- coagulopathy of covid; on AC -Subcu heparin -Trend CBC -Transfuse for hemoglobin less than 7 -Bilateral lower extremity Doppler ultrasounds negative for DVT ; no CTA or VQ scan to rule out PE -- hyperglycemia; obesity -glargine HS -SSI AC/HS -Avoid hypoglycemia -- risk for protein gisella malnutrition given inc metabolic demand with resp insufficiency -TPN earlier in hospital admission due to BiPAP however now patient is tolerating p.o. -Patient on a GI soft diet with aspiration precautions -Nutrition following -Bowel regimen: Colace, senna, MiraLAX -PPI --Anxiety Likely due to severe hypoxia -Follows commands and RAY -PRN pain and anxiety meds -Patient is Sami-speaking but understands Yi --viral conjunctivitis right eye: -Right eye- s/p 5 d course of cipro drops. suspect viral conjunctivitis. lubricating eye drops. supportive management. --Septic shock -S/p pressors now discontinued -MAP goal 65 -Pressure monitor per protocol --DVT prophylaxis, per hospital protocol Hospital course to date: 04/17: Patient seen and examined, still uncomfortable with Hypoxic respiratory failure and on oxygen, will continue to steroids therapy, start patient on Remdesivir, ID consulted, Pulmonary consult placed. 04/18: Patient seen and examined, she is currently being changed to High flow NC due to worsening HYPOXIA, will transfer to IMCU, Pulmonary and ID following. Will also give a dose of Lasix today. Monitor Inflammatory markers. 04/19: Patient seen and examined still on high flow due to hypoxia. Appears a bit more comfortable today than yesterday. Cough has decreased in frequency. We will continue high dose Dexameathasone to complete 10 days. continue on Remdesivir 200 mg IV q day x 1 followed by 100 mg IV q day x 4 days -Obtain q48-72h inflammatory markers - ferritin, Ddimer, CRP, LDH Will also give lasix daily for the next 3 days and monitor renal function. Family updated. Continue prone positioning as tolerated 04/20: Patient has some desaturation episodes yesterday was placed on BiPAP. Discussed with ICU team for bed availability for patient to be transferred up. Continue prone position as tolerated. 04/21: Patient remains with profound hypoxia secondary to COVID pneumonia. -Continue steroids -Continue remedesir -S/P Actmera 04/22: Patient remains on steroids and remdesivir. ABG shows persistent hypoxia. We will continue current management additional trial of Lasix for the next few d ays to see if any improvement. Monitor inflammatory markers as needed. Prognosis is guarded remains on high flow 04/23; patient was treated with remdesivir and Actemra. Continue steroid. Patient's prognosis is guarded. 04/24; patient is on steroid. Patient is currently on BiPAP. Prognosis is gua rded. Pulmonary is following. Patient was given Lasix and Ativan. 04/25; continue steroid. Patient was on 40 L of high flow oxygen with saturation was 88%. Pulmonary is following. Prognosis is guarded. Patient was given lasix and ativan. 04/26; patient is on BiPAP and Precedex. Prognosis is guarded. 04/27; patient is on BiPAP and Precedex. Patient will finish steroid today and will start on Solu-Medrol tomorrow. Prognosis is guarded. Blood pressure is better today. Hold Lasix. 04/28 patient is on 100 Fio2 via BIPAP. moderately dyspneic, pulmonary note reviewed, lab results reviewed 04/29 no acute events- see systems review above 04/30 no acute events overnight - on airvo today- TPN started -see systems review above -18 no acute events overnight- tolerating airvo- see systems review above - no acute events overnight; tolerating airvo this AM- see systems review above 05/03: Patient has shown remarkable improvement, weaned down to 3 L and satting 95%. Will attempt to walk test today in anticipation for discharge tomorrow. Discussed with PT team to walk the patient today also. 05/04: Patient appears to have had a decline he was down to 3 L satting 95% with anticipation for discharge today but desatted down to 85% on room air and only 88% on 5 L he is now back at 8 L. I encourage incentive spirometer. While he is on Xarelto and has completed the severe steroids which was subsequently changed to Solu-Medrol I will go ahead and order a CTA to make sure that there is not a failure of Xarelto. We will continue to wean as tolerated discussed with nursing staff at bedside. 05/05/21 Patient is on 40 L of oxygen with 80% FiO2. Patient is encouraged to turn to the side more frequently. Patient is denied any shortness of breath and coughing. No other complaints. Follow the CT scan of the chest. Status post remdesivir and Actemra.Solu-Medrol 40 mg IV every 8 hours. Continue current management. Pulmonary follow-up. 05/06: Patient remains on high flow nasal cannula but states that she feels slightly better with the help of translation from her cousin Aspen. Patient is still awaiting a bed on the floor. Patient diet is being tolerated now so we will stop TPN will be stopped tonight. 05/07/2021: Patient remains on 40 L/min oxygen at 90% FiO2. Attempt made for CTA chest to rule out pulmonary embolism however patient desatted while at CT. Study was aborted, will reattempt again tomorrow. will follow along with renetta bertrand. Discussed/updated patient and patient's daughter over phone regarding any active clinical issues. Patient only complaint is oral pain from oral candidiasis noted on exam. Nystatin oral solution ordered. Daughter also voiced concern over patient eye drops which she stated that patient needed to restart from home. However she did not remember name of drops. advised daughter to call our hospital with drop name and dosing and we will restart. 05/08/2021: Started anticoagulation with Lovenox yesterday. Awaiting CTA chest completion. Will attempt to de-escalate oxygen as patient tolerates 05/09/2021: Continues to have high O2 requirements. CTA chest aborted due to patient not being able to tolerate transport to and from scanner. Will follow pulmonology recommendations 05/10/2021: Steroids increased yesterday to 125 mg every 8 hour. Continuing full dose anticoagulation. Respiratory status still remains challenging as it is difficult to wean patient off of hifnc. Minimal improvement compared to last few days. Plan to prone patient today. Otherwise: Some improvement in eye symptoms compared to yesterday. Will order more lubricating eye drops 05/11/2021: Still requires high flow nasal cannula, FiO2 de-escalated to 85%.. Encourage continued proning, patient care team aware. Continue with steroids, anticoagulation, antibiotics. 05/12/2021: High flow nasal cannula remains at flow rate 35 L/min and FiO2 of 85%. Patient appears more comfortable today. Started insulin regimen due to hyperglycemia likely multifactorial in the setting of underlying diabetes and high-dose steroids. Continue to encourage patient to prone. Discussed with pulmonology regarding patient underlying anxiety. We both agreed that low-dose BuSpar might be beneficial for the patient. 05/13/2020: hypoxic resp distress overnight. cpap ordered. Current settings on encounter 30/04 at 100% FIO2. Advised care (RN, RT, PT) team to continue to aggressively work with patient as far as proning. Patient can sit at side of bed and rest on bedside tray w/ pillow in "Rodin's thinker pose". continue high dose steroids, PRN ativan for anxiety, Buspar noted in pulm recs. 05/14/21: Patient remains on 100% O2 with high flow. Follow inflammatory markers, wean FiO2 as tolerated, guarded prognosis 05/15: Patient on 40 L high flow O2 today-requiring nonrebreather intermittently, continue to follow inflammatory markers and wean off O2 as tolerated, guarded prognosis. 05/16:-Remains on high flow O2 along with nonrebreather, continue to follow inflammatory markers and wean off O2 as tolerated, pulmonary and ID following. Guarded prognosis, patient requiring higher concentration of O2 and unable to wean off. 05/17: Persistently recurring higher concentration O2. Patient on both high flow oxygen and nonrebreather. Poor prognosis, continue to follow inflammatory markers. ID and pulmonary care following. Updated family. 05/18: Patient remains on nonrebreather and high flow O2, Prone if possible. Wean FiO2 for sats >88%. Prognosis is very very guarded. Follow inflammatory markers. 05/19: Wean FiO2 for sats >88%. Patient remains on nonrebreather and high flow O2, Prone if possible. Follow inflammatory markers. Prognosis is very very guarded. 05/20: Patient remains on high flow O2 along with nonrebreather. Guarded prognosis. Wean off O2 as tolerated. Pulmonary and ID following 05/21: Clinically very poor prognosis. Patient continuously requiring high flow O2 along with nonrebreather. Updated daughter with all clinical details. Follow BMP, follow inflammatory markers. Wean off O2 as tolerated. 05/22: Remains on nonrebreather and high flow O2. Continue to monitor clinically, guarded prognosis. Continue to follow inflammatory markers. ID and pulmonary also following. 06/11/21: Remains on high flow O2, poor prognosis 06/12/2021 On high flow nasal cannula oxygen Steroids will be tapered Prone position 06/13/21:Changed to prednisone 60 daily [id number]/1/21. Prone if able and wean for sats >88% 06/14/21: Continue oral steroid therapy. Weaning of steroids to continue. Proning as tolerated 06/15: Remains on 30 L high flow O2, continue to wean off as tolerated, patient on steroid, guarded prognosis, call patient family for update but the phone number in the chart looks like not in service. 06/16; continue supportive care wean off O2 as tolerated, patient remains on 30 L high flow O2 06/17: Remains on 30 L high flow O2, continue empiric steroid, guarded prognosis, unable to wean off from high flow O2. Needs LTAC but patient is unfunded Subjective Date of service: 06/17/21 Principal diagnosis: Covid-19 Interval history: Patient seen and examined. Medical records and medication list reviewed. No acute event overnight noted by the RN. Patient remains on high flow O2. Patient is tolerating diet. Discussed plan of care at bedside with patient. Objective - Exam Narrative Exam: Limited physical exam due to COVID-19 pandemic to minimize transmission of the disease and to preserve PPE. Vital reviewed and stable. GENERAL: well-developed well-nourished lying on bed appeared to be in no discomfort. HEENT: Normocephalic. Atraumatic. Right eye congestion NECK: Supple. CHEST/LUNGS: breathing on high flow O2 HEART/CARDIOVASCULAR: Heart rate stable on telemetry ABDOMEN: Visibly not distended SKIN: There is no rash NEURO: No focal motor deficit. Follows command. MUSCULOSKELETAL: No joint effusion EXTRIMITY: No swelling, no cyanosis or clubbing. PSYCH: Cooperative. - Constitutional Vitals: Vital Signs - 12hr 06/17/21 06/17/21 06/17/21 03:38 04:22 05:00 Temperature 97.9 F Pulse Rate 76 Respiratory 16 Rate Blood Pressure 102/60 O2 Sat by Pulse 95 94 97 Oximetry 06/17/21 06/17/21 06/17/21 10:42 11:55 12:02 Temperature 97.9 F Pulse Rate 110 H Respiratory 24 Rate Blood Pressure 109/68 O2 Sat by Pulse 90 85 93 Oximetry - Labs CBC & Chem 7: 06/15/21 08:00 06/15/21 08:00 Labs: Abnormal lab results 06/16/21 06/16/21 06/17/21 Range/Units 17:21 21:27 07:12 POC Glucose 299 H 290 H 67 L (70-105) mg/dL 06/17/21 Range/Units 11:53 POC Glucose 199 H (70-105) mg/dL
[2021-06-17] MEDS: INSULIN GLARGINE 100 UNITS/ML SUB-Q SCH ×2 (13:37→23:09)
[2021-06-17] MEDS: ENOXAPARIN 40 MG/0.4 ML INJ SUB-Q SCH (21:24)
[2021-06-17] MEDS: SENNOSIDES 8.6 MG TAB PO SCH (21:25)
[2021-06-17] MEDS: ZOLPIDEM 5 MG TAB PO PRN (21:31)
[2021-06-18] MEDS: INSULIN LISPRO 100 UNIT/ML SUB-Q SCH ×4 (10:07→23:05)
[2021-06-18] MEDS: FUROSEMIDE 40 MG/4 ML INJ IV SCH (10:08)
[2021-06-18] MEDS: ASCORBIC ACID 500 MG TAB PO SCH (10:08)
[2021-06-18] MEDS: predniSONE 20 MG TAB PO SCH (10:08)
[2021-06-18] MEDS: CHOLECALCIFEROL (VIT D3) 1000 UNIT (25 mcg) TAB PO SCH (10:08)
[2021-06-18] MEDS: DOCUSATE SODIUM 100 MG CAP PO SCH ×2 (10:08→23:03)
[2021-06-18] MEDS: ZINC SULFATE 220 MG CAP PO SCH ×2 (10:08→23:04)
[2021-06-18] MEDS: clonazePAM 0.5 MG TAB PO PRN (11:02)
[2021-06-18] MEDS: INSULIN GLARGINE 100 UNITS/ML SUB-Q SCH ×2 (14:02→23:04)
--- NOTE | 2021-06-18 16:57 | Progress Note ---
Assessment and Plan 50-year-old female past medical history obesity, GERD, hyperlipidemia brought to the hospital due to shortness of breath, fevers, malaise, typical Covid symptoms for approximate 1 week prior to admission and was progressively worse since on set. She is found to have saturations of 86% on presentation. Afebrile since admission with a white count 7.5. Covid test was positive positive along with normal renal function and normal procalcitonin. Chest x-ray: Bilateral pneumonia. Patient initiated on Covid protocol, ID and pulmonary care following Assessment and plan: --Acute hypoxic resp failure due to covid19 -S/p BiPAP, now discontinued -Currently on high per nasal cannula -See RT notes for titration -Albuterol as needed -Pulmonary hygiene -Pulmonology following CTA chest ordered, patient could not tolerate --covid19 pna; sepsis; -zinc/vitC/D -cont steroid; wean as appropriate -Infectious disease consulted, -S/p Actemra and remdesivir -Trend temperature and WBC curve -Follow culture data --Oral candidiasis Nystatin solution ordered. -- hyponatremia -Trend BMP -Replace electrolytes as needed -Monitor intake and output -- coagulopathy of covid; on AC -Subcu heparin -Trend CBC -Transfuse for hemoglobin less than 7 -Bilateral lower extremity Doppler ultrasounds negative for DVT ; no CTA or VQ scan to rule out PE -- hyperglycemia; obesity -glargine HS -SSI AC/HS -Avoid hypoglycemia -- risk for protein gisella malnutrition given inc metabolic demand with resp insufficiency -TPN earlier in hospital admission due to BiPAP however now patient is tolerating p.o. -Patient on a GI soft diet with aspiration precautions -Nutrition following -Bowel regimen: Colace, senna, MiraLAX -PPI --Anxiety Likely due to severe hypoxia -Follows commands and RAY -PRN pain and anxiety meds -Patient is Yoruba-speaking but understands Korean --viral conjunctivitis right eye: -Right eye- s/p 5 d course of cipro drops. suspect viral conjunctivitis. lubricating eye drops. supportive management. --Septic shock -S/p pressors now discontinued -MAP goal 65 -Pressure monitor per protocol --DVT prophylaxis, per hospital protocol Hospital course to date: 04/17: Patient seen and examined, still uncomfortable with Hypoxic respiratory failure and on oxygen, will continue to steroids therapy, start patient on Remdesivir, ID consulted, Pulmonary consult placed. 04/18: Patient seen and examined, she is currently being changed to High flow NC due to worsening HYPOXIA, will transfer to IMCU, Pulmonary and ID following. Will also give a dose of Lasix today. Monitor Inflammatory markers. 04/19: Patient seen and examined still on high flow due to hypoxia. Appears a bit more comfortable today than yesterday. Cough has decreased in frequency. We will continue high dose Dexameathasone to complete 10 days. continue on Remdesivir 200 mg IV q day x 1 followed by 100 mg IV q day x 4 days -Obtain q48-72h inflammatory markers - ferritin, Ddimer, CRP, LDH Will also give lasix daily for the next 3 days and monitor renal function. Family updated. Continue prone positioning as tolerated 04/20: Patient has some desaturation episodes yesterday was placed on BiPAP. Discussed with ICU team for bed availability for patient to be transferred up. Continue prone position as tolerated. 04/21: Patient remains with profound hypoxia secondary to COVID pneumonia. -Continue steroids -Continue remedesir -S/P Actmera 04/22: Patient remains on steroids and remdesivir. ABG shows persistent hypoxia. We will continue current management additional trial of Lasix for the next few days to see if any improvement. Monitor inflammatory markers as needed. Prognosis is guarded remains on high flow 04/23; patient was treated with remdesivir and Actemra. Continue steroid. Patient's prognosis is guarded. 04/24; patient is on steroid. Patient is currently on BiPAP. Prognosis is guar ded. Pulmonary is following. Patient was given Lasix and Ativan. 04/25; continue steroid. Patient was on 40 L of high flow oxygen with saturation was 88%. Pulmonary is following. Prognosis is guarded. Patient was given lasix and ativan. 04/26; patient is on BiPAP and Precedex. Prognosis is guarded. 04/27; patient is on BiPAP and Precedex. Patient will finish steroid today and will start on Solu-Medrol tomorrow. Prognosis is guarded. Blood pressure is better today. Hold Lasix. 04/28 patient is on 100 Fio2 via BIPAP. moderately dyspneic, pulmonary note reviewed, lab results reviewed 04/29 no acute events- see systems review above 04/30 no acute events overnight - on airvo today- TPN started -see systems review above 05-01 no acute events overnight- tolerating airvo- see systems review above 05-02 no acute events overnight; tolerating airvo this AM- see systems review above 05/03: Patient has shown remarkable improvement, weaned down to 3 L and satting 95%. Will attempt to walk test today in anticipation for discharge tomorrow. Discussed with PT team to walk the patient today also. 05/04: Patient appears to have had a decline he was down to 3 L satting 95% with anticipation for discharge today but desatted down to 85% on room air and only 88% on 5 L he is now back at 8 L. I encourage incentive spirometer. While he is on Xarelto and has completed the severe steroids which was subsequently changed to Solu-Medrol I will go ahead and order a CTA to make sure that there is not a failure of Xarelto. We will continue to wean as tolerated discussed with nursing staff at bedside. 05/05/21 Patient is on 40 L of oxygen with 80% FiO2. Patient is encouraged to turn to the side more frequently. Patient is denied any shortness of breath and coughing. No other complaints. Follow the CT scan of the chest. Status post remdesivir and Actemra.Solu-Medrol 40 mg IV every 8 hours. Continue current management. Pulmonary follow-up. 05/06: Patient remains on high flow nasal cannula but states that she feels slightly better with the help of translation from her cousin Aspen. Patient is still awaiting a bed on the floor. Patient diet is being tolerated now so we will stop TPN will be stopped tonight. 05/07/2021: Patient remains on 40 L/min oxygen at 90% FiO2. Attempt made for CTA chest to rule out pulmonary embolism however patient desatted while at CT. Study was aborted, will reattempt again tomorrow. will follow along with renetta bertrand. Discussed/updated patient and patient's daughter over phone regarding any active clinical issues. Patient only complaint is oral pain from oral candidiasis noted on exam. Nystatin oral solution ordered. Daughter also voiced concern over patient eye drops which she stated that patient needed to restart from home. However she did not remember name of drops. advised daughter to call our hospital with drop name and dosing and we will restart. 05/08/2021: Started anticoagulation with Lovenox yesterday. Awaiting CTA chest completion. Will attempt to de-escalate oxygen as patient tolerates 05/09/2021: Continues to have high O2 requirements. CTA chest aborted due to patient not being able to tolerate transport to and from scanner. Will follow pulmonology recommendations 05/10/2021: Steroids increased yesterday to 125 mg every 8 hour. Continuing full dose anticoagulation. Respiratory status still remains challenging as it is difficult to wean patient off of hifnc. Minimal improvement compared to last few days. Plan to prone patient today. Otherwise: Some improvement in eye symptoms compared to yesterday. Will order more lubricating eye drops 05/11/2021: Still requires high flow nasal cannula, FiO2 de-escalated to 85%.. Encourage continued proning, patient care team aware. Continue with steroids, anticoagulation, antibiotics. 05/12/2021: High flow nasal cannula remains at flow rate 35 L/min and FiO2 of 85%. Patient appears more comfortable today. Started insulin regimen due to hyperglycemia likely multifactorial in the setting of underlying diabetes and high-dose steroids. Continue to encourage patient to prone. Discussed with pulmonology regarding patient underlying anxiety. We both agreed that low-dose BuSpar might be beneficial for the patient. 05/13/2020: hypoxic resp distress overnight. cpap ordered. Current settings on encounter 30/04 at 100% FIO2. Advised care (RN, RT, PT) team to continue to aggressively work with patient as far as proning. Patient can sit at side of bed and rest on bedside tray w/ pillow in "Rodin's thinker pose". continue high dose steroids, PRN ativan for anxiety, Buspar noted in pulm recs. 05/14/21: Patient remains on 100% O2 with high flow. Follow inflammatory markers, wean FiO2 as tolerated, guarded prognosis 05/15: Patient on 40 L high flow O2 today-requiring nonrebreather intermittently, continue to follow inflammatory markers and wean off O2 as tolerated, guarded prognosis. 05/16:-Remains on high flow O2 along with nonrebreather, continue to follow inflammatory markers and wean off O2 as tolerated, pulmonary and ID following. Guarded prognosis, patient requiring higher concentration of O2 and unable to wean off. 05/17: Persistently recurring higher concentration O2. Patient on both high flow oxygen and nonrebreather. Poor prognosis, continue to follow inflammatory markers. ID and pulmonary care following. Updated family. 05/18: Patient remains on nonrebreather and high flow O2, Prone if possible. Wean FiO2 for sats >88%. Prognosis is very very guarded. Follow inflammatory markers. 05/19: Wean FiO2 for sats >88%. Patient remains on nonrebreather and high flow O2, Prone if possible. Follow inflammatory markers. Prognosis is very very guarded. 05/20: Patient remains on high flow O2 along with nonrebreather. Guarded prognosis. Wean off O2 as tolerated. Pulmonary and ID following 05/21: Clinically very poor prognosis. Patient continuously requiring high flow O2 along with nonrebreather. Updated daughter with all clinical details. Follow BMP, follow inflammatory markers. Wean off O2 as tolerated. 05/22: Remains on nonrebreather and high flow O2. Continue to monitor clinically, guarded prognosis. Continue to follow inflammatory markers. ID and pulmonary also following. 06/11/21: Remains on high flow O2, poor prognosis 06/12/2021 On high flow nasal cannula oxygen Steroids will be tapered Prone position 06/13/21:Changed to prednisone 60 daily [id number]/1/21. Prone if able and wean for sats >88% 06/14/21: Continue oral steroid therapy. Weaning of steroids to continue. Proning as tolerated 06/15: Remains on 30 L high flow O2, continue to wean off as tolerated, patient on steroid, guarded prognosis, call patient family for update but the phone number in the chart looks like not in service. 06/16; continue supportive care wean off O2 as tolerated, patient remains on 30 L high flow O2 06/17: Remains on 30 L high flow O2, continue empiric steroid, guarded prognosis, unable to wean off from high flow O2. Needs LTAC but patient is unfunded 06/18: continue empiric steroid, Remains on high flow O2, unable to wean off from high flow O2. Needs LTAC but patient is unfunded. Guarded prognosis Subjective Date of service: 06/18/21 Principal diagnosis: Covid-19 Interval history: Patient seen and examined. Medical records and medication list reviewed. No acute event overnight noted by the RN. Patient remains on high flow O2. Patient is tolerating diet. Discussed plan of care at bedside with patient. Objective - Exam Narrative Exam: Limited physical exam due to COVID-19 pandemic to minimize transmission of the disease and to preserve PPE. Vital reviewed and stable. GENERAL: well-developed well-nourished lying on bed appeared to be in no discomfort. HEENT: Normocephalic. Atraumatic. Right eye congestion NECK: Supple. CHEST/LUNGS: breathing on high flow O2 HEART/CARDIOVASCULAR: Heart rate stable on telemetry ABDOMEN: Visibly not distended SKIN: There is no rash NEURO: No focal motor deficit. Follows command. MUSCULOSKELETAL: No joint effusion EXTRIMITY: No swelling, no cyanosis or clubbing. PSYCH: Cooperative. - Constitutional Vitals: Vital Signs - 12hr 06/18/21 06/18/21 09:32 10:00 O2 Sat by Pulse 92 95 Oximetry - Labs CBC & Chem 7: 06/15/21 08:00 06/15/21 08:00 Labs: Abnormal lab results 06/17/21 06/17/21 06/18/21 Range/Units 17:02 22:25 08:00 POC Glucose 362 H 235 H 62 L (70-105) mg/dL 06/18/21 06/18/21 Range/Units 11:48 16:40 POC Glucose 211 H 305 H (70-105) mg/dL
[2021-06-18] MEDS: SENNOSIDES 8.6 MG TAB PO SCH (23:03)
[2021-06-18] MEDS: ENOXAPARIN 40 MG/0.4 ML INJ SUB-Q SCH (23:04)
[2021-06-18] MEDS: ZOLPIDEM 5 MG TAB PO PRN (23:18)
[2021-06-18] MEDS: ACETAMINOPHEN 325 MG TAB PO PRN (23:19)
[2021-06-19] MEDS: INSULIN LISPRO 100 UNIT/ML SUB-Q SCH ×4 (08:31→23:12)
[2021-06-19] MEDS: predniSONE 20 MG TAB PO SCH (10:28)
[2021-06-19] MEDS: ASCORBIC ACID 500 MG TAB PO SCH (10:29)
[2021-06-19] MEDS: ZINC SULFATE 220 MG CAP PO SCH ×2 (10:29→21:25)
[2021-06-19] MEDS: CHOLECALCIFEROL (VIT D3) 1000 UNIT (25 mcg) TAB PO SCH (10:29)
[2021-06-19] MEDS: FUROSEMIDE 40 MG/4 ML INJ IV SCH (10:29)
[2021-06-19] MEDS: DOCUSATE SODIUM 100 MG CAP PO SCH ×2 (10:29→21:24)
[2021-06-19] MEDS: clonazePAM 0.5 MG TAB PO PRN ×2 (10:41→21:24)
[2021-06-19] MEDS: INSULIN GLARGINE 100 UNITS/ML SUB-Q SCH ×2 (13:31→23:13)
--- NOTE | 2021-06-19 20:15 | Progress Note ---
Assessment and Plan 50-year-old female past medical history obesity, GERD, hyperlipidemia brought to the hospital due to shortness of breath, fevers, malaise, typical Covid symptoms for approximate 1 week prior to admission and was progressively worse since on set. She is found to have saturations of 86% on presentation. Afebrile since admission with a white count 7.5. Covid test was positive positive along with normal renal function and normal procalcitonin. Chest x-ray: Bilateral pneumonia. Patient initiated on Covid protocol, ID and pulmonary care following Assessment and plan: --Acute hypoxic resp failure due to covid19 -S/p BiPAP, now discontinued -Currently on high per nasal cannula -See RT notes for titration -Albuterol as needed -Pulmonary hygiene -Pulmonology following CTA chest ordered, patient could not tolerate --covid19 pna; sepsis; -zinc/vitC/D - continue steroid daily; wean as appropriate -Infectious disease consulted, -S/p Actemra and remdesivir -Trend temperature and WBC curve -Follow culture data --Oral candidiasis Nystatin solution ordered. -- hyponatremia -Trend BMP -Replace electrolytes as needed -Monitor intake and output -- coagulopathy of covid; on AC -Subcu heparin -Trend CBC -Transfuse for hemoglobin less than 7 -Bilateral lower extremity Doppler ultrasounds negative for DVT ; no CTA or VQ scan to rule out PE -- hyperglycemia; obesity -glargine HS -SSI AC/HS -Avoid hypoglycemia -- risk for protein gisella malnutrition given inc metabolic demand with resp insufficiency -TPN earlier in hospital admission due to BiPAP however now patient is tolerating p.o. -Patient on a GI soft diet with aspiration precautions -Nutrition following -Bowel regimen: Colace, senna, MiraLAX -PPI --Anxiety Likely due to severe hypoxia -Follows commands and RAY -PRN pain and anxiety meds -Patient is [place]-speaking but understands [place]ese --viral conjunctivitis right eye: -Right eye- s/p 5 d course of cipro drops. suspect viral conjunctivitis. lubricating eye drops. supportive management. --Septic shock -S/p pressors now discontinued -MAP goal 65 -Pressure monitor per protocol --DVT prophylaxis, per hospital protocol Hospital course to date: 04/17: Patient seen and examined, still uncomfortable with Hypoxic respiratory failure and on oxygen, will continue to steroids therapy, start patient on Remdesivir, ID consulted, Pulmonary consult placed. 04/18: Patient seen and examined, she is currently being changed to High flow NC due to worsening HYPOXIA, will transfer to IMCU, Pulmonary and ID following. Will also give a dose of Lasix today. Monitor Inflammatory markers. 04/19: Patient seen and examined still on high flow due to hypoxia. Appears a bit more comfortable today than yesterday. Cough has decreased in frequency. We will continue high dose Dexameathasone to complete 10 days. continue on Remdesivir 200 mg IV q day x 1 followed by 100 mg IV q day x 4 days -Obtain q48-72h inflammatory markers - ferritin, Ddimer, CRP, LDH Will also give lasix daily for the next 3 days and monitor renal function. Family updated. Continue prone positioning as tolerated 04/20: Patient has some desaturation episodes yesterday was placed on BiPAP. Discussed with ICU team for bed availability for patient to be transferred up. Continue prone position as tolerated. 04/21: Patient remains with profound hypoxia secondary to COVID pneumonia. -Continue steroids -Continue remedesir -S/P Actmera 04/22: Patient remains on steroids and remdesivir. ABG shows persistent hypoxia. We will continue current management additional trial of Lasix for the next few days to see if any improvement. Monitor inflammatory markers as needed. Prognosis is guarded remains on high flow 04/23; patient was treated with remdesivir and Actemra. Continue steroid. Patient's prognosis is guarded. 04/24; patient is on steroid. Patient is currently on BiPAP. Prognosis is guarded. Pulmonary is following. Patient was given Lasix and Ativan. 04/25; continue steroid. Patient was on 40 L of high flow oxygen with saturation was 88%. Pulmonary is following. Prognosis is guarded. Patient was given lasix and ativan. 04/26; patient is on BiPAP and Precedex. Prognosis is guarded. 04/27; patient is on BiPAP and Precedex. Patient will finish steroid today and w ill start on Solu-Medrol tomorrow. Prognosis is guarded. Blood pressure is better today. Hold Lasix. 04/28 patient is on 100 Fio2 via BIPAP. moderately dyspneic, pulmonary note reviewed, lab results reviewed 04/29 no acute events- see systems review above 04/30 no acute events overnight - on airvo today- TPN started -see systems review above 05-01 no acute events overnight- tolerating airvo- see systems review above 05-02 no acute events overnight; tolerating airvo this AM- see systems review above 05/03: Patient has shown remarkable improvement, weaned down to 3 L and satting 95%. Will attempt to walk test today in anticipation for discharge tomorrow. Discussed with PT team to walk the patient today also. 05/04: Patient appears to have had a decline he was down to 3 L satting 95% with anticipation for discharge today but desatted down to 85% on room air and only 88% on 5 L he is now back at 8 L. I encourage incentive spirometer. While he is on Xarelto and has completed the severe steroids which was subsequently changed to Solu-Medrol I will go ahead and order a CTA to make sure that there is not a failure of Xarelto. We will continue to wean as tolerated discussed with nursing staff at bedside. 05/05/21 Patient is on 40 L of oxygen with 80% FiO2. Patient is encouraged to turn to the side more frequently. Patient is denied any shortness of breath and coughing. No other complaints. Follow the CT scan of the chest. Status post remdesivir and Actemra.Solu-Medrol 40 mg IV every 8 hours. Continue current management. Pulmonary follow-up. 05/06: Patient remains on high flow nasal cannula but states that she feels slightly better with the help of translation from her cousin Aspen. Patient is still awaiting a bed on the floor. Patient diet is being tolerated now so we will stop TPN will be stopped tonight. 05/07/2021: Patient remains on 40 L/min oxygen at 90% FiO2. Attempt made for CTA chest to rule out pulmonary embolism however patient desatted while at CT. Study was aborted, will reattempt again tomorrow. will follow along with renetta bertrand. Discussed/updated patient and patient's daughter over phone regarding any active clinical issues. Patient only complaint is oral pain from oral candidiasis noted on exam. Nystatin oral solution ordered. Daughter also voiced concern over patient eye drops which she stated that patient needed to restart from home. However she did not remember name of drops. advised daughter to call our hospital with drop name and dosing and we will restart. 05/08/2021: Started anticoagulation with Lovenox yesterday. Awaiting CTA chest completion. Will attempt to de-escalate oxygen as patient tolerates 05/09/2021: Continues to have high O2 requirements. CTA chest aborted due to patient not being able to tolerate transport to and from scanner. Will follow pulmonology recommendations 05/10/2021: Steroids increased yesterday to 125 mg every 8 hour. Continuing full dose anticoagulation. Respiratory status still remains challenging as it is difficult to wean patient off of hifnc. Minimal improvement compared to last few days. Plan to prone patient today. Otherwise: Some improvement in eye symptoms compared to yesterday. Will order more lubricating eye drops 05/11/2021: Still requires high flow nasal cannula, FiO2 de-escalated to 85%.. Encourage continued proning, patient care team aware. Continue with steroids, anticoagulation, antibiotics. 05/12/2021: High flow nasal cannula remains at flow rate 35 L/min and FiO2 of 85%. Patient appears more comfortable today. Started insulin regimen due to hyperglycemia likely multifactorial in the setting of underlying diabetes and high-dose steroids. Continue to encourage patient to prone. Discussed with pulmonology regarding patient underlying anxiety. We both agreed that low-dose BuSpar might be beneficial for the patient. 05/13/2020: hypoxic resp distress overnight. cpap ordered. Current settings on encounter 30/04 at 100% FIO2. Advised care (RN, RT, PT) team to continue to aggressively work with patient as far as proning. Patient can sit at side of bed and rest on bedside tray w/ pillow in "Rodin's thinker pose". continue high dose steroids, PRN ativan for anxiety, Buspar noted in pulm recs. 05/14/21: Patient remains on 100% O2 with high flow. Follow inflammatory markers, wean FiO2 as tolerated, guarded prognosis 05/15: Patient on 40 L high flow O2 today-requiring nonrebreather intermittently, continue to follow inflammatory markers and wean off O2 as tolerated, guarded prognosis. 05/16:-Remains on high flow O2 along with nonrebreather, continue to follow inflammatory markers and wean off O2 as tolerated, pulmonary and ID following. Guarded prognosis, patient requiring higher concentration of O2 and unable to wean off. 05/17: Persistently recurring higher concentration O2. Patient on both high flow oxygen and nonrebreather. Poor prognosis, continue to follow inflammatory markers. ID and pulmonary care following. Updated family. 05/18: Patient remains on nonrebreather and high flow O2, Prone if possible. We an FiO2 for sats >88%. Prognosis is very very guarded. Follow inflammatory markers. 05/19: Wean FiO2 for sats >88%. Patient remains on nonrebreather and high flow O2, Prone if possible. Follow inflammatory markers. Prognosis is very very guarded. 05/20: Patient remains on high flow O2 along with nonrebreather. Guarded prognosis. Wean off O2 as tolerated. Pulmonary and ID following 05/21: Clinically very poor prognosis. Patient continuously requiring high flow O2 along with nonrebreather. Updated daughter with all clinical details. Follow BMP, follow inflammatory markers. Wean off O2 as tolerated. 05/22: Remains on nonrebreather and high flow O2. Continue to monitor clinically, guarded prognosis. Continue to follow inflammatory markers. ID and pulmonary also following. 06/11/21: Remains on high flow O2, poor prognosis 06/12/2021 On high flow nasal cannula oxygen Steroids will be tapered Prone position 06/13/21: Changed to prednisone 60 daily [id number]/1/21. Prone if able and wean for sats >88% 06/14/21: Continue oral steroid therapy. Weaning of steroids to continue. Proning as tolerated 06/15: Remains on 30 L high flow O2, continue to wean off as tolerated, patient on steroid, guarded prognosis, call patient family for update but the phone number in the chart looks like not in service. 06/16; continue supportive care wean off O2 as tolerated, patient remains on 30 L high flow O2 06/17: Remains on 30 L high flow O2, continue empiric steroid, guarded prognos is, unable to wean off from high flow O2. Needs LTAC but patient is unfunded 06/18: continue empiric steroid, Remains on high flow O2, unable to wean off from high flow O2. Needs LTAC but patient is unfunded. Guarded prognosis 06/19: patient remains on high flow O2, unable to wean off, guarded prognosis Subjective Date of service: 06/19/21 Principal diagnosis: Covid-19 Interval history: Patient seen and examined. Medical records and medication list reviewed. No acute event overnight noted by the RN. Patient remains on high flow O2. Patient is tolerating diet. Discussed plan of care at bedside with patient. Objective - Exam Narrative Exam: Limited physical exam due to COVID-19 pandemic to minimize transmission of the disease and to preserve PPE. Vital reviewed and stable. GENERAL: well-developed well-nourished lying on bed appeared to be in no discomfort. HEENT: Normocephalic. Atraumatic. Right eye congestion NECK: Supple. CHEST/LUNGS: breathing on high flow O2 HEART/CARDIOVASCULAR: Heart rate stable on telemetry ABDOMEN: Visibly not distended SKIN: There is no rash NEURO: No focal motor deficit. Follows command. MUSCULOSKELETAL: No joint effusion EXTRIMITY: No swelling, no cyanosis or clubbing. PSYCH: Cooperative. - Constitutional Vitals: Vital Signs - 12hr 06/19/21 06/19/21 06/19/21 12:04 14:00 17:24 Temperature 98.3 F 98.1 F Pulse Rate 100 H 111 H Respiratory 22 24 Rate Blood Pressure 115/64 116/73 O2 Sat by Pulse 88 93 88 Oximetry - Labs CBC & Chem 7: 06/15/21 08:00 06/15/21 08:00 Labs: Abnormal lab results 06/18/21 06/19/21 06/19/21 Range/Units 21:26 07:27 11:32 POC Glucose 149 H 60 L 208 H (70-105) mg/dL 06/19/21 Range/Units 16:06 POC Glucose 266 H (70-105) mg/dL
[2021-06-19] MEDS: ZOLPIDEM 5 MG TAB PO PRN (21:23)
[2021-06-19] MEDS: SENNOSIDES 8.6 MG TAB PO SCH (21:25)
[2021-06-19] MEDS: ENOXAPARIN 40 MG/0.4 ML INJ SUB-Q SCH (21:25)
[2021-06-20] MEDS: INSULIN LISPRO 100 UNIT/ML SUB-Q SCH ×4 (08:05→22:37)
[2021-06-20] MEDS: DOCUSATE SODIUM 100 MG CAP PO SCH ×2 (09:16→22:35)
[2021-06-20] MEDS: CHOLECALCIFEROL (VIT D3) 1000 UNIT (25 mcg) TAB PO SCH (09:16)
[2021-06-20] MEDS: ZINC SULFATE 220 MG CAP PO SCH ×2 (09:16→22:35)
[2021-06-20] MEDS: predniSONE 20 MG TAB PO SCH (09:16)
[2021-06-20] MEDS: INSULIN GLARGINE 100 UNITS/ML SUB-Q SCH ×2 (09:16→22:39)
[2021-06-20] MEDS: FUROSEMIDE 40 MG/4 ML INJ IV SCH (09:16)
[2021-06-20] MEDS: ASCORBIC ACID 500 MG TAB PO SCH (09:17)
[2021-06-20] MEDS: ACETAMINOPHEN 325 MG TAB PO PRN (10:18)
--- NOTE | 2021-06-20 11:36 | Progress Note ---
Assessment and Plan 50 y/o female with acute respiratory failure secondary to COVID19 pneumonia. 06/20/21: Will drop steroids down to 40 today. Proning. Continue to wean FiO2. 06/18/21: Wean Fio2 for sats >88%. Please encourage proning. Drop steroids do wn to 40 on . 06/14/21: Continue oral steroid therapy. Will do further weaning next week. Wean for sats >88% and prone as tolerated. Will see as needed over the weekend. 06/13/21: Will change to prednisone 60 daily starting tomorrow. Prone if able and wean for sats >88% 06/11/21: no new recs, will change to oral steroids tomorrow, continue to prone if able and wean for sats >88% 06/10/21: Will change to oral steroids on Thursday to begin prolonged taper 06/06/21: Continue to wean as tolerated, will drop steroids on tomorrow. 06/04/21: Clinically no change. Will drop steroids down the end of this week. 05/31/21: Clinically no change. Not eligible for LTACH. Encourage Proning. Will drop steroids down to 40 q8 05/29/21: No acute changes clinically. Still on HFNC but not really able to wean. Continue to encourage proning. Will drop steroids further on Thursday. 05/27/21: No improvement over the weekend but also no worsening. No other strategies to offer. Please continue to encourage patient to prone. I dropped steroids on yesterday. Will wean more later in the week. 05/24/21: No new recs again for today. Will see as needed over the weekend but follow chart peripherally for changes. 05/22/21: No new recs for today. Prognosis remains guarded. 05/21/21: Wean as tolerated. Prone if able. Guarded prognosis 05/20/21: COntinue current level of care. 05/17/21: Prone if possible. Wean FiO2 for sats >88%. Continue scheduled ativan. Prognosis is very very guarded. Unfunded so not a candidate for LTACH 05/16/21: Prone if willing. Wean FIO2 if patient will allow. Anxiety control. Prognosis still remains very guarded. 05/15/21: Not sure if MAR is accurate but may have only gotten one dose of scheduled anixolytic therapy. Continue proning as tolerated, and wean FiO2 and flow for sats >88%. Prognosi remains very very guarded to poor. 05/14/21: Will discontinue the buspar and make the ativan scheduled but will do q6 as oppose to q4 and attempt to leave parameters for nursing when not to give. If anxiety could be controlled, feel that patient could be weaned further. She has no funding so she is not a candidate for LTACH. Prone if possible. Guarded prognosis. This is her day. 05/13/21: Ordered buspar 10 BID to start with to help with anxiety. Please continue to wean FiO2 as tolerated. Will remind nurse that there is PRN ativan available. Continue higher doses of steroids. Prone if able. 05/12/21: Patient may need something longer acting for anxiety. Per chart has not gotten any ativan in days. Would be ok with either buspar or low dose klonopin bid. COntinue higher doses of steroids as patient seems to be resp onding. Prone if possible. 05/11/21: Continue high doses of steroids and continue to wean for sats >88%. Please encourage proning. 05/10/21: Will continue this dose of steroid at least through the weekend and assess for improvement. will speak with RT about aggressive weaning. Full dose anticoagulation continues. Very very guarded to poor prognosis. 05/09/21: Going to consider increasing steroids to 125q8, maybe as early as tomorrow. continue full dose anticoagulation. 05/08/21: Continue anticoagulation and steroids. Prone if possible. Anxiety control. No objection to CTA if this can happen. Very very guarded prognosis. 05/07/21: Spoke with IMS, not opposed to full dose anticoagulation. If patient goes back on NRB HFNC combo may need to consider restarting PPN again. Encou rage proning. Guarded prognosis. 05/06/21: Continue to wean FiO2 and flow for sats >88%. Tolerating diet now so will stop PPN. Continue anxiety control. Continue IV steroids. Would not object to transfer to COVID floor if bed available. Not sure why she was titrated back up to 100% from 85 as all sats documented in the RT's notes were acceptable. Same for under vital signs as well. 05/03/21: Set back last night from yesterday. Continue bipap therapy for now and attempt HFNC maybe later this afternoon. Continue to use PRN ativan but may need to schedule as she likely took off mask from anxiety. Continue IV steroids. Hold on transfer to COVID Floor. 05/02/21: Continue to wean FiO2 as tolerated for sats >88%. Will continue bipap at night. Patient has no funding so not a candidate for LTACH. Given that she has been stable and not requiring the combo of HFNC and NRB, will consider moving to COVID floor. 05/01/21: Continue to wean FiO2 for sats >88%. A sat of 90 is more than acceptable and oxygen should not be increased for this unless patient desats and remains at a sat lower than 88. Bipap at night to give some form of relief and HFNC during the day. Currently on just this alone which is improvement. Ok with daily diuresis but must monitor renal function and BP closely. She was over diuresed last week and we ended up giving fluid back. Prognosis remains gu arded. 04/30/21: Will start CLinimix today for nutritional support, without electrolytes. Check labs in am. Prone if able. Continue precedx for anxiety. Very very guarded prognosis. Attempting our best to not intubate. 04/29/21: Continue precedex. Continue IV solumedrol. Prone if able. Guarded prognosis. 04/28/21: Continue Precedex. Picc team attempting to place line now. Stable on Bipap. Ordered steroids IV solumedrol to start today. Prognosis remains guarded, still at very high risk for intubation. 04/27/21: Hypotension improving/improved. Hold on any further lasix dosing. Continue precedex to help with anxeity. later today please attempt HFNC with NRB if needed. Attempt to feed if possible. Steroids end today, please order solumedrol 40q8 to start tomorrow (04/28/21). guarded prognosis. 04/26/21: Hypotension today, most likely from precedex use and diuresis that I did the last several days. Will bolus again today. Consider midodrine if BP does not respond. 04/25/21: Lasix again today. Keep PRN ativan for now. Hold on precedex for now. Guarded prognosis. Labs ordered for tomorrow. 04/24/21: Lasix today. Will also start patient on low dose PRN ativan. If this does not help will then try precedex. Guarded prognosis. 04/23/21: Prone as tolerated. No lasix today. Continue decadron. Guarded prognosis. High risk for intubation and high mortality with intubation. 04/19/21: Prone as tolerated during the day and sleep prone at night. Continue I V remdesivir and steroids. Did get actemra. Guarded prognosis. 1. Daily net negative state 2. Prone if possible 3. IV remdesivir. 4. Should be a candidate for Actemra 5. IV steroids 6. Guarded Prognosis Subjective Date of service: 06/20/21 Principal diagnosis: Covid-19 Interval history: Down to 55%. This is the lowest that she has been on this admission Objective Vital Signs - 12hr 06/20/21 06/20/21 06/20/21 02:00 05:53 09:49 Temperature 97.8 F Pulse Rate 80 Respiratory 18 Rate Blood Pressure 106/70 O2 Sat by Pulse 96 96 96 Oximetry Constitutional: no acute distress, alert Eyes: non-icteric ENT: oropharynx moist Neck: supple Effort: normal Ascultation: Bilateral: diminished breath sounds Cardiovascular: regular rate and rhythm Gastrointestinal: normoactive bowel sounds, soft, non-tender, non-distended Integumentary: normal Extremities: no cyanosis, no edema, pink and warm Neurologic: normal mental status, non-focal exam, pupils equal and round, CN II- XII normal Psychiatric: mood appropriate, affect normal CBC and BMP: 06/15/21 08:00 06/15/21 08:00 ABG, PT/INR, D-dimer: ABG ABG pH 7.403 pH Units (7.350-7.450) 05/14/21 02:23 POC ABG pCO2 45.4 mmHg (32.0-48.0) 05/03/21 04:49 ABG pCO2 50.2 mm Hg 05/14/21 02:23 POC ABG pO2 65.3 mmHg (83-108) L 05/03/21 04:49 ABG pO2 130.3 mm Hg (80.0-90.0) H 05/14/21 02:23 POC ABG HCO3 18.5 05/03/21 04:49 ABG O2 Saturation 98.5 % (95.0-99.0) 05/14/21 02:23 PT/INR, D-dimer D-Dimer 488.49 ng/mlDDU (0-234) H 06/05/21 05:26 Abnormal lab findings: Abnormal Labs 04/16/21 04/16/21 04/16/21 11:42 11:42 11:42 WBC MCH MCHC RDW 16.1 H Lymph % (Auto) 7.8 L Lymph # (Auto) 0.8 L Baso # (Auto) Seg Neutrophils % 87.7 H Seg Neuts % (Manual) Lymphocytes % (Manual) Seg Neutrophils # 8.5 H Seg Neutrophils # Man Lymphocytes # (Manual) D-Dimer 338.70 H ABG pH POC ABG pO2 ABG pO2 ABG HCO3 ABG O2 Saturation ABG Base Excess ABG Oxyhemoglobin ABG Sodium ABG Chloride ABG Glucose Oxyhemoglobin Carboxyhemoglobin Sodium Potassium Chloride Carbon Dioxide BUN Creatinine Glucose 194 H POC Glucose Hemoglobin A1c Ferritin AST ALT Alkaline Phosphatase Lactate Dehydrogenase C-Reactive Protein Total Protein 8.4 H Albumin 3.8 L Arterial Blood Glucose Coronavirus (PCR) 04/16/21 04/16/21 04/17/21 11:42 11:42 03:50 WBC MCH MCHC RDW 16.0 H Lymph % (Auto) 7.7 L Lymph # (Auto) 0.6 L Baso # (Auto) Seg Neutrophils % 89.8 H Seg Neuts % (Manual) Lymphocytes % (Manual) Seg Neutrophils # Seg Neutrophils # Man Lymphocytes # (Manual) D-Dimer ABG pH POC ABG pO2 ABG pO2 ABG HCO3 ABG O2 Saturation ABG Base Excess ABG Oxyhemoglobin ABG Sodium ABG Chloride ABG Glucose Oxyhemoglobin Carboxyhemoglobin Sodium Potassium Chloride Carbon Dioxide BUN Creatinine Glucose 195 H POC Glucose Hemoglobin A1c Ferritin 254.3 H AST ALT Alkaline Phosphatase Lactate Dehydrogenase 359 H C-Reactive Protein 15.20 H Total Protein Albumin Arterial Blood Glucose Coronavirus (PCR) 04/17/21 04/17/21 04/17/21 03:50 08:26 08:26 WBC MCH MCHC RDW Lymph % (Auto) Lymph # (Auto) Baso # (Auto) Seg Neutrophils % Seg Neuts % (Manual) Lymphocytes % (Manual) Seg Neutrophils # Seg Neutrophils # Man Lymphocytes # (Manual) D-Dimer 262.48 H ABG pH POC ABG pO2 ABG pO2 ABG HCO3 ABG O2 Saturation ABG Base Excess ABG Oxyhemoglobin ABG Sodium ABG Chloride ABG Glucose Oxyhemoglobin Carboxyhemoglobin Sodium Potassium Chloride Carbon Dioxide BUN 20 H Creatinine 0.5 L Glucose 249 H 225 H POC Glucose Hemoglobin A1c Ferritin AST ALT Alkaline Phosphatase Lactate Dehydrogenase 338 H C-Reactive Protein 17.20 H Total Protein Albumin 3.2 L Arterial Blood Glucose Coronavirus (PCR) 04/17/21 04/17/21 04/17/21 08:26 15:04 Unknown WBC MCH MCHC RDW Lymph % (Auto) Lymph # (Auto) Baso # (Auto) Seg Neutrophils % Seg Neuts % (Manual) Lymphocytes % (Manual) Seg Neutrophils # Seg Neutrophils # Man Lymphocytes # (Manual) D-Dimer ABG pH POC ABG pO2 ABG pO2 ABG HCO3 ABG O2 Saturation ABG Base Excess ABG Oxyhemoglobin ABG Sodium ABG Chloride ABG Glucose Oxyhemoglobin Carboxyhemoglobin Sodium Potassium Chloride Carbon Dioxide BUN 20 H Creatinine 0.5 L Glucose 246 H POC Glucose Hemoglobin A1c Ferritin 392.0 H AST ALT Alkaline Phosphatase Lactate Dehydrogenase C-Reactive Protein Total Protein 8.3 H Albumin 3.1 L Arterial Blood Glucose Coronavirus (PCR) Positive A 04/18/21 04/18/21 04/18/21 05:06 05:06 07:36 WBC 11.6 H MCH MCHC RDW 16.1 H Lymph % (Auto) Lymph # (Auto) Baso # (Auto) Seg Neutrophils % Seg Neuts % (Manual) Lymphocytes % (Manual) Seg Neutrophils # Seg Neutrophils # Man Lymphocytes # (Manual) D-Dimer ABG pH POC ABG pO2 ABG pO2 ABG HCO3 ABG O2 Saturation ABG Base Excess ABG Oxyhemoglobin ABG Sodium ABG Chloride ABG Glucose Oxyhemoglobin Carboxyhemoglobin Sodium Potassium 5.2 H Chloride Carbon Dioxide BUN 22 H Creatinine 0.5 L Glucose 315 H POC Glucose Hemoglobin A1c 8.5 H Ferritin AST ALT Alkaline Phosphatase Lactate Dehydrogenase C-Reactive Protein Total Protein Albumin 3.3 L Arterial Blood Glucose Coronavirus (PCR) 04/18/21 04/18/21 04/18/21 11:59 16:43 23:24 WBC MCH MCHC RDW Lymph % (Auto) Lymph # (Auto) Baso # (Auto) Seg Neutrophils % Seg Neuts % (Manual) Lymphocytes % (Manual) Seg Neutrophils # Seg Neutrophils # Man Lymphocytes # (Manual) D-Dimer ABG pH POC ABG pO2 ABG pO2 ABG HCO3 ABG O2 Saturation ABG Base Excess ABG Oxyhemoglobin ABG Sodium ABG Chloride ABG Glucose Oxyhemoglobin Carboxyhemoglobin Sodium Potassium Chloride Carbon Dioxide BUN Creatinine Glucose POC Glucose 284 H 273 H 290 H Hemoglobin A1c Ferritin AST ALT Alkaline Phosphatase Lactate Dehydrogenase C-Reactive Protein Total Protein Albumin Arterial Blood Glucose Coronavirus (PCR) 04/19/21 04/19/21 04/19/21 04:19 04:19 08:10 WBC MCH MCHC RDW 15.7 H Lymph % (Auto) Lymph # (Auto) Baso # (Auto) Seg Neutrophils % Seg Neuts % (Manual) Lymphocytes % (Manual) Seg Neutrophils # Seg Neutrophils # Man Lymphocytes # (Manual) D-Dimer ABG pH POC ABG pO2 ABG pO2 ABG HCO3 ABG O2 Saturation ABG Base Excess ABG Oxyhemoglobin ABG Sodium ABG Chloride ABG Glucose Oxyhemoglobin Carboxyhemoglobin Sodium Potassium Chloride Carbon Dioxide BUN 27 H Creatinine 0.4 L Glucose 184 H POC Glucose 194 H Hemoglobin A1c Ferritin AST ALT Alkaline Phosphatase Lactate Dehydrogenase C-Reactive Protein Total Protein Albumin 3.1 L Arterial Blood Glucose Coronavirus (PCR) 04/19/21 04/19/21 04/19/21 11:38 16:25 22:04 WBC MCH MCHC RDW Lymph % (Auto) Lymph # (Auto) Baso # (Auto) Seg Neutrophils % Seg Neuts % (Manual) Lymphocytes % (Manual) Seg Neutrophils # Seg Neutrophils # Man Lymphocytes # (Manual) D-Dimer ABG pH POC ABG pO2 ABG pO2 ABG HCO3 ABG O2 Saturation ABG Base Excess ABG Oxyhemoglobin ABG Sodium ABG Chloride ABG Glucose Oxyhemoglobin Carboxyhemoglobin Sodium Potassium Chloride Carbon Dioxide BUN Creatinine Glucose POC Glucose 224 H 297 H 251 H Hemoglobin A1c Ferritin AST ALT Alkaline Phosphatase Lactate Dehydrogenase C-Reactive Protein Total Protein Albumin Arterial Blood Glucose Coronavirus (PCR) 04/20/21 04/20/21 04/20/21 05:28 08:43 16:21 WBC MCH MCHC RDW Lymph % (Auto) Lymph # (Auto) Baso # (Auto) Seg Neutrophils % Seg Neuts % (Manual) Lymphocytes % (Manual) Seg Neutrophils # Seg Neutrophils # Man Lymphocytes # (Manual) D-Dimer ABG pH POC ABG pO2 ABG pO2 ABG HCO3 ABG O2 Saturation ABG Base Excess ABG Oxyhemoglobin ABG Sodium ABG Chloride ABG Glucose Oxyhemoglobin Carboxyhemoglobin Sodium Potassium Chloride Carbon Dioxide BUN 27 H Creatinine Glucose 192 H POC Glucose 173 H 253 H Hemoglobin A1c Ferritin AST ALT Alkaline Phosphatase Lactate Dehydrogenase C-Reactive Protein Total Protein Albumin 3.0 L Arterial Blood Glucose Coronavirus (PCR) 04/21/21 04/21/21 04/21/21 07:58 12:05 16:08 WBC MCH MCHC RDW Lymph % (Auto) Lymph # (Auto) Baso # (Auto) Seg Neutrophils % Seg Neuts % (Manual) Lymphocytes % (Manual) Seg Neutrophils # Seg Neutrophils # Man Lymphocytes # (Manual) D-Dimer ABG pH POC ABG pO2 ABG pO2 ABG HCO3 ABG O2 Saturation ABG Base Excess ABG Oxyhemoglobin ABG Sodium ABG Chloride ABG Glucose Oxyhemoglobin Carboxyhemoglobin Sodium Potassium Chloride Carbon Dioxide BUN Creatinine Glucose POC Glucose 140 H 252 H 214 H Hemoglobin A1c Ferritin AST ALT Alkaline Phosphatase Lactate Dehydrogenase C-Reactive Protein Total Protein Albumin Arterial Blood Glucose Coronavirus (PCR) 04/21/21 04/22/21 04/22/21 21:42 08:37 12:01 WBC MCH MCHC RDW Lymph % (Auto) Lymph # (Auto) Baso # (Auto) Seg Neutrophils % Seg Neuts % (Manual) Lymphocytes % (Manual) Seg Neutrophils # Seg Neutrophils # Man Lymphocytes # (Manual) D-Dimer ABG pH 7.457 H POC ABG pO2 49.4 L ABG pO2 ABG HCO3 ABG O2 Saturation ABG Base Excess ABG Oxyhemoglobin 85.6 L ABG Sodium ABG Chloride ABG Glucose 121 H Oxyhemoglobin Carboxyhemoglobin 0.3 L Sodium Potassium Chloride Carbon Dioxide BUN Creatinine Glucose POC Glucose 162 H 227 H Hemoglobin A1c Ferritin AST ALT Alkaline Phosphatase Lactate Dehydrogenase C-Reactive Protein Total Protein Albumin Arterial Blood Glucose 121 H Coronavirus (PCR) 04/22/21 04/22/21 04/23/21 16:26 22:23 04:52 WBC MCH MCHC RDW 15.7 H Lymph % (Auto) Lymph # (Auto) Baso # (Auto) Seg Neutrophils % Seg Neuts % (Manual) Lymphocytes % (Manual) Seg Neutrophils # Seg Neutrophils # Man Lymphocytes # (Manual) D-Dimer ABG pH POC ABG pO2 ABG pO2 ABG HCO3 ABG O2 Saturation ABG Base Excess ABG Oxyhemoglobin ABG Sodium ABG Chloride ABG Glucose Oxyhemoglobin Carboxyhemoglobin Sodium Potassium Chloride Carbon Dioxide BUN Creatinine Glucose POC Glucose 200 H 136 H Hemoglobin A1c Ferritin AST ALT Alkaline Phosphatase Lactate Dehydrogenase C-Reactive Protein Total Protein Albumin Arterial Blood Glucose Coronavirus (PCR) 04/23/21 04/23/21 04/23/21 04:52 12:06 17:41 WBC MCH MCHC RDW Lymph % (Auto) Lymph # (Auto) Baso # (Auto) Seg Neutrophils % Seg Neuts % (Manual) Lymphocytes % (Manual) Seg Neutrophils # Seg Neutrophils # Man Lymphocytes # (Manual) D-Dimer ABG pH POC ABG pO2 ABG pO2 ABG HCO3 ABG O2 Saturation ABG Base Excess ABG Oxyhemoglobin ABG Sodium ABG Chloride ABG Glucose Oxyhemoglobin Carboxyhemoglobin Sodium 136 L Potassium Chloride 97.7 L Carbon Dioxide BUN 23 H Creatinine Glucose 101 H POC Glucose 202 H 169 H Hemoglobin A1c Ferritin AST 46 H ALT Alkaline Phosphatase Lactate Dehydrogenase C-Reactive Protein Total Protein Albumin 3.3 L Arterial Blood Glucose Coronavirus (PCR) 04/23/21 04/24/21 04/24/21 23:08 05:17 08:38 WBC MCH MCHC RDW Lymph % (Auto) Lymph # (Auto) Baso # (Auto) Seg Neutrophils % Seg Neuts % (Manual) Lymphocytes % (Manual) Seg Neutrophils # Seg Neutrophils # Man Lymphocytes # (Manual) D-Dimer ABG pH POC ABG pO2 ABG pO2 ABG HCO3 ABG O2 Saturation ABG Base Excess ABG Oxyhemoglobin ABG Sodium ABG Chloride ABG Glucose Oxyhemoglobin Carboxyhemoglobin Sodium Potassium Chloride Carbon Dioxide BUN Creatinine Glucose POC Glucose 111 H 108 H 126 H Hemoglobin A1c Ferritin AST ALT Alkaline Phosphatase Lactate Dehydrogenase C-Reactive Protein Total Protein Albumin Arterial Blood Glucose Coronavirus (PCR) 04/24/21 04/24/21 04/24/21 11:54 17:57 21:23 WBC MCH MCHC RDW Lymph % (Auto) Lymph # (Auto) Baso # (Auto) Seg Neutrophils % Seg Neuts % (Manual) Lymphocytes % (Manual) Seg Neutrophils # Seg Neutrophils # Man Lymphocytes # (Manual) D-Dimer ABG pH POC ABG pO2 ABG pO2 ABG HCO3 ABG O2 Saturation ABG Base Excess ABG Oxyhemoglobin ABG Sodium ABG Chloride ABG Glucose Oxyhemoglobin Carboxyhemoglobin Sodium Potassium Chloride Carbon Dioxide BUN Creatinine Glucose POC Glucose 147 H 177 H 138 H Hemoglobin A1c Ferritin AST ALT Alkaline Phosphatase Lactate Dehydrogenase C-Reactive Protein Total Protein Albumin Arterial Blood Glucose Coronavirus (PCR) 04/25/21 04/25/21 04/25/21 07:06 11:23 15:43 WBC MCH MCHC RDW Lymph % (Auto) Lymph # (Auto) Baso # (Auto) Seg Neutrophils % Seg Neuts % (Manual) Lymphocytes % (Manual) Seg Neutrophils # Seg Neutrophils # Man Lymphocytes # (Manual) D-Dimer ABG pH POC ABG pO2 ABG pO2 ABG HCO3 ABG O2 Saturation ABG Base Excess ABG Oxyhemoglobin ABG Sodium ABG Chloride ABG Glucose Oxyhemoglobin Carboxyhemoglobin Sodium Potassium Chloride Carbon Dioxide BUN Creatinine Glucose POC Glucose 147 H 169 H 227 H Hemoglobin A1c Ferritin AST ALT Alkaline Phosphatase Lactate Dehydrogenase C-Reactive Protein Total Protein Albumin Arterial Blood Glucose Coronavirus (PCR) 04/25/21 04/26/21 04/26/21 21:22 02:45 05:15 WBC MCH MCHC RDW Lymph % (Auto) Lymph # (Auto) Baso # (Auto) Seg Neutrophils % Seg Neuts % (Manual) Lymphocytes % (Manual) Seg Neutrophils # Seg Neutrophils # Man Lymphocytes # (Manual) D-Dimer ABG pH POC ABG pO2 70.7 L ABG pO2 ABG HCO3 ABG O2 Saturation ABG Base Excess ABG Oxyhemoglobin 93.0 L ABG Sodium 132.7 L ABG Chloride ABG Glucose 115 H Oxyhemoglobin Carboxyhemoglobin Sodium Potassium Chloride 95.8 L Carbon Dioxide 32 H BUN 20 H Creatinine Glucose 102 H POC Glucose 196 H Hemoglobin A1c Ferritin AST ALT Alkaline Phosphatase Lactate Dehydrogenase C-Reactive Protein Total Protein Albumin Arterial Blood Glucose 115 H Coronavirus (PCR) 04/26/21 04/26/21 04/26/21 11:49 16:09 21:07 WBC MCH MCHC RDW Lymph % (Auto) Lymph # (Auto) Baso # (Auto) Seg Neutrophils % Seg Neuts % (Manual) Lymphocytes % (Manual) Seg Neutrophils # Seg Neutrophils # Man Lymphocytes # (Manual) D-Dimer ABG pH POC ABG pO2 ABG pO2 ABG HCO3 ABG O2 Saturation ABG Base Excess ABG Oxyhemoglobin ABG Sodium ABG Chloride ABG Glucose Oxyhemoglobin Carboxyhemoglobin Sodium Potassium Chloride Carbon Dioxide BUN Creatinine Glucose POC Glucose 114 H 188 H 136 H Hemoglobin A1c Ferritin AST ALT Alkaline Phosphatase Lactate Dehydrogenase C-Reactive Protein Total Protein Albumin Arterial Blood Glucose Coronavirus (PCR) 04/27/21 04/27/21 04/28/21 17:34 22:12 08:26 WBC MCH MCHC RDW Lymph % (Auto) Lymph # (Auto) Baso # (Auto) Seg Neutrophils % Seg Neuts % (Manual) Lymphocytes % (Manual) Seg Neutrophils # Seg Neutrophils # Man Lymphocytes # (Manual) D-Dimer ABG pH POC ABG pO2 ABG pO2 ABG HCO3 ABG O2 Saturation ABG Base Excess ABG Oxyhemoglobin ABG Sodium ABG Chloride ABG Glucose Oxyhemoglobin Carboxyhemoglobin Sodium Potassium Chloride Carbon Dioxide BUN Creatinine Glucose POC Glucose 128 H 159 H 69 L Hemoglobin A1c Ferritin AST ALT Alkaline Phosphatase Lactate Dehydrogenase C-Reactive Protein Total Protein Albumin Arterial Blood Glucose Coronavirus (PCR) 04/28/21 04/28/21 04/29/21 12:22 21:11 06:05 WBC MCH MCHC RDW Lymph % (Auto) Lymph # (Auto) Baso # (Auto) Seg Neutrophils % Seg Neuts % (Manual) Lymphocytes % (Manual) Seg Neutrophils # Seg Neutrophils # Man Lymphocytes # (Manual) D-Dimer ABG pH POC ABG pO2 ABG pO2 ABG HCO3 ABG O2 Saturation ABG Base Excess ABG Oxyhemoglobin ABG Sodium ABG Chloride ABG Glucose Oxyhemoglobin Carboxyhemoglobin Sodium 132 L Potassium Chloride 94.4 L Carbon Dioxide BUN Creatinine 0.2 L D Glucose 140 H POC Glucose 141 H 171 H Hemoglobin A1c Ferritin AST ALT Alkaline Phosphatase Lactate Dehydrogenase C-Reactive Protein Total Protein Albumin Arterial Blood Glucose Coronavirus (PCR) 04/29/21 04/29/21 04/29/21 06:05 07:24 11:36 WBC MCH MCHC 35 H RDW 15.9 H Lymph % (Auto) Lymph # (Auto) Baso # (Auto) Seg Neutrophils % Seg Neuts % (Manual) Lymphocytes % (Manual) Seg Neutrophils # Seg Neutrophils # Man Lymphocytes # (Manual) D-Dimer ABG pH POC ABG pO2 ABG pO2 ABG HCO3 ABG O2 Saturation ABG Base Excess ABG Oxyhemoglobin ABG Sodium ABG Chloride ABG Glucose Oxyhemoglobin Carboxyhemoglobin Sodium Potassium Chloride Carbon Dioxide BUN Creatinine Glucose POC Glucose 141 H 220 H Hemoglobin A1c Ferritin AST ALT Alkaline Phosphatase Lactate Dehydrogenase C-Reactive Protein Total Protein Albumin Arterial Blood Glucose Coronavirus (PCR) 04/29/21 04/29/21 04/29/21 14:23 15:30 17:06 WBC MCH MCHC RDW Lymph % (Auto) Lymph # (Auto) Baso # (Auto) Seg Neutrophils % Seg Neuts % (Manual) Lymphocytes % (Manual) Seg Neutrophils # Seg Neutrophils # Man Lymphocytes # (Manual) D-Dimer ABG pH POC ABG pO2 ABG pO2 52.6 L ABG HCO3 ABG O2 Saturation 86.4 L ABG Base Excess ABG Oxyhemoglobin ABG Sodium ABG Chloride ABG Glucose Oxyhemoglobin 84.6 L Carboxyhemoglobin Sodium Potassium Chloride Carbon Dioxide BUN Creatinine Glucose POC Glucose 173 H 158 H Hemoglobin A1c Ferritin AST ALT Alkaline Phosphatase Lactate Dehydrogenase C-Reactive Protein Total Protein Albumin Arterial Blood Glucose Coronavirus (PCR) 04/29/21 04/30/21 04/30/21 21:27 07:16 08:00 WBC MCH MCHC RDW 16.1 H Lymph % (Auto) Lymph # (Auto) Baso # (Auto) Seg Neutrophils % Seg Neuts % (Manual) Lymphocytes % (Manual) Seg Neutrophils # Seg Neutrophils # Man Lymphocytes # (Manual) D-Dimer ABG pH POC ABG pO2 ABG pO2 ABG HCO3 ABG O2 Saturation ABG Base Excess ABG Oxyhemoglobin ABG Sodium ABG Chloride ABG Glucose Oxyhemoglobin Carboxyhemoglobin Sodium Potassium Chloride Carbon Dioxide BUN Creatinine Glucose POC Glucose 244 H 175 H Hemoglobin A1c Ferritin AST ALT Alkaline Phosphatase Lactate Dehydrogenase C-Reactive Protein Total Protein Albumin Arterial Blood Glucose Coronavirus (PCR) 04/30/21 04/30/21 04/30/21 08:00 08:00 11:03 WBC MCH MCHC RDW Lymph % (Auto) Lymph # (Auto) Baso # (Auto) Seg Neutrophils % Seg Neuts % (Manual) Lymphocytes % (Manual) Seg Neutrophils # Seg Neutrophils # Man Lymphocytes # (Manual) D-Dimer 1796.87 H ABG pH POC ABG pO2 ABG pO2 ABG HCO3 ABG O2 Saturation ABG Base Excess ABG Oxyhemoglobin ABG Sodium ABG Chloride ABG Glucose Oxyhemoglobin Carboxyhemoglobin Sodium 135 L Potassium Chloride 96.3 L Carbon Dioxide BUN Creatinine 0.2 L Glucose 153 H POC Glucose 183 H Hemoglobin A1c Ferritin AST 41 H ALT 76 H Alkaline Phosphatase 160 H Lactate Dehydrogenase 522 H C-Reactive Protein Total Protein 6.1 L Albumin 3.1 L Arterial Blood Glucose Coronavirus (PCR) 04/30/21 04/30/21 05/01/21 17:04 22:17 05:39 WBC MCH MCHC RDW Lymph % (Auto) Lymph # (Auto) Baso # (Auto) Seg Neutrophils % Seg Neuts % (Manual) Lymphocytes % (Manual) Seg Neutrophils # Seg Neutrophils # Man Lymphocytes # (Manual) D-Dimer ABG pH POC ABG pO2 ABG pO2 ABG HCO3 ABG O2 Saturation ABG Base Excess ABG Oxyhemoglobin ABG Sodium ABG Chloride ABG Glucose Oxyhemoglobin Carboxyhemoglobin Sodium 133 L Potassium Chloride 92.1 L Carbon Dioxide BUN 24 H Creatinine 0.4 L D Glucose 269 H POC Glucose 167 H 208 H Hemoglobin A1c Ferritin AST ALT 66 H Alkaline Phosphatase 142 H Lactate Dehydrogenase C-Reactive Protein Total Protein Albumin 3.2 L Arterial Blood Glucose Coronavirus (PCR) 05/01/21 05/01/21 05/01/21 05:39 05:39 07:45 WBC MCH MCHC RDW 16.0 H Lymph % (Auto) Lymph # (Auto) Baso # (Auto) Seg Neutrophils % Seg Neuts % (Manual) Lymphocytes % (Manual) Seg Neutrophils # Seg Neutrophils # Man Lymphocytes # (Manual) D-Dimer 3984.95 H ABG pH POC ABG pO2 ABG pO2 ABG HCO3 ABG O2 Saturation ABG Base Excess ABG Oxyhemoglobin ABG Sodium ABG Chloride ABG Glucose Oxyhemoglobin Carboxyhemoglobin Sodium Potassium Chloride Carbon Dioxide BUN Creatinine Glucose POC Glucose 229 H Hemoglobin A1c Ferritin AST ALT Alkaline Phosphatase Lactate Dehydrogenase C-Reactive Protein Total Protein Albumin Arterial Blood Glucose Coronavirus (PCR) 05/01/21 05/01/21 05/01/21 12:10 15:46 21:06 WBC MCH MCHC RDW Lymph % (Auto) Lymph # (Auto) Baso # (Auto) Seg Neutrophils % Seg Neuts % (Manual) Lymphocytes % (Manual) Seg Neutrophils # Seg Neutrophils # Man Lymphocytes # (Manual) D-Dimer ABG pH POC ABG pO2 ABG pO2 ABG HCO3 ABG O2 Saturation ABG Base Excess ABG Oxyhemoglobin ABG Sodium ABG Chloride ABG Glucose Oxyhemoglobin Carboxyhemoglobin Sodium Potassium Chloride Carbon Dioxide BUN Creatinine Glucose POC Glucose 296 H 279 H 232 H Hemoglobin A1c Ferritin AST ALT Alkaline Phosphatase Lactate Dehydrogenase C-Reactive Protein Total Protein Albumin Arterial Blood Glucose Coronavirus (PCR) 05/02/21 05/02/21 05/02/21 04:55 04:55 04:55 WBC MCH MCHC RDW 16.1 H Lymph % (Auto) Lymph # (Auto) Baso # (Auto) Seg Neutrophils % Seg Neuts % (Manual) Lymphocytes % (Manual) Seg Neutrophils # Seg Neutrophils # Man Lymphocytes # (Manual) D-Dimer 1401.08 H ABG pH POC ABG pO2 ABG pO2 ABG HCO3 ABG O2 Saturation ABG Base Excess ABG Oxyhemoglobin ABG Sodium ABG Chloride ABG Glucose Oxyhemoglobin Carboxyhemoglobin Sodium 131 L Potassium Chloride 95.5 L Carbon Dioxide BUN 20 H Creatinine 0.3 L Glucose 288 H POC Glucose Hemoglobin A1c Ferritin AST ALT Alkaline Phosphatase Lactate Dehydrogenase C-Reactive Protein Total Protein 6.0 L Albumin 3.1 L Arterial Blood Glucose Coronavirus (PCR) 05/02/21 05/02/21 05/02/21 07:53 11:45 15:25 WBC MCH MCHC RDW Lymph % (Auto) Lymph # (Auto) Baso # (Auto) Seg Neutrophils % Seg Neuts % (Manual) Lymphocytes % (Manual) Seg Neutrophils # Seg Neutrophils # Man Lymphocytes # (Manual) D-Dimer ABG pH POC ABG pO2 ABG pO2 ABG HCO3 ABG O2 Saturation ABG Base Excess ABG Oxyhemoglobin ABG Sodium ABG Chloride ABG Glucose Oxyhemoglobin Carboxyhemoglobin Sodium Potassium Chloride Carbon Dioxide BUN Creatinine Glucose POC Glucose 180 H 228 H 275 H Hemoglobin A1c Ferritin AST ALT Alkaline Phosphatase Lactate Dehydrogenase C-Reactive Protein Total Protein Albumin Arterial Blood Glucose Coronavirus (PCR) 05/02/21 05/03/21 05/03/21 22:56 04:30 04:49 WBC MCH MCHC RDW Lymph % (Auto) Lymph # (Auto) Baso # (Auto) Seg Neutrophils % Seg Neuts % (Manual) Lymphocytes % (Manual) Seg Neutrophils # Seg Neutrophils # Man Lymphocytes # (Manual) D-Dimer ABG pH 7.229 L POC ABG pO2 65.3 L ABG pO2 ABG HCO3 ABG O2 Saturation ABG Base Excess ABG Oxyhemoglobin 87.8 L ABG Sodium 133.0 L ABG Chloride 97.0 L ABG Glucose 403 H Oxyhemoglobin Carboxyhemoglobin Sodium 130 L Potassium Chloride 94.9 L Carbon Dioxide BUN 20 H Creatinine 0.5 L D Glucose 359 H POC Glucose 293 H Hemoglobin A1c Ferritin AST 54 H ALT 75 H Alkaline Phosphatase 138 H Lactate Dehydrogenase C-Reactive Protein Total Protein Albumin 3.6 L Arterial Blood Glucose 403 H Coronavirus (PCR) 05/03/21 05/03/21 05/03/21 05:27 11:26 17:57 WBC MCH MCHC RDW Lymph % (Auto) Lymph # (Auto) Baso # (Auto) Seg Neutrophils % Seg Neuts % (Manual) Lymphocytes % (Manual) Seg Neutrophils # Seg Neutrophils # Man Lymphocytes # (Manual) D-Dimer ABG pH POC ABG pO2 ABG pO2 ABG HCO3 ABG O2 Saturation ABG Base Excess ABG Oxyhemoglobin ABG Sodium ABG Chloride ABG Glucose Oxyhemoglobin Carboxyhemoglobin Sodium Potassium Chloride Carbon Dioxide BUN Creatinine Glucose POC Glucose 361 H 297 H 226 H Hemoglobin A1c Ferritin AST ALT Alkaline Phosphatase Lactate Dehydrogenase C-Reactive Protein Total Protein Albumin Arterial Blood Glucose Coronavirus (PCR) 05/03/21 05/04/21 05/04/21 23:12 05:12 07:30 WBC MCH MCHC RDW Lymph % (Auto) Lymph # (Auto) Baso # (Auto) Seg Neutrophils % Seg Neuts % (Manual) Lymphocytes % (Manual) Seg Neutrophils # Seg Neutrophils # Man Lymphocytes # (Manual) D-Dimer ABG pH POC ABG pO2 ABG pO2 ABG HCO3 ABG O2 Saturation ABG Base Excess ABG Oxyhemoglobin ABG Sodium ABG Chloride ABG Glucose Oxyhemoglobin Carboxyhemoglobin Sodium Potassium Chloride Carbon Dioxide BUN Creatinine Glucose POC Glucose 282 H 285 H 254 H Hemoglobin A1c Ferritin AST ALT Alkaline Phosphatase Lactate Dehydrogenase C-Reactive Protein Total Protein Albumin Arterial Blood Glucose Coronavirus (PCR) 05/04/21 05/04/21 05/04/21 08:58 11:45 16:07 WBC MCH MCHC RDW Lymph % (Auto) Lymph # (Auto) Baso # (Auto) Seg Neutrophils % Seg Neuts % (Manual) Lymphocytes % (Manual) Seg Neutrophils # Seg Neutrophils # Man Lymphocytes # (Manual) D-Dimer ABG pH POC ABG pO2 ABG pO2 ABG HCO3 ABG O2 Saturation ABG Base Excess ABG Oxyhemoglobin ABG Sodium ABG Chloride ABG Glucose Oxyhemoglobin Carboxyhemoglobin Sodium 134 L Potassium Chloride Carbon Dioxide BUN 20 H Creatinine 0.3 L Glucose 267 H POC Glucose 244 H 297 H Hemoglobin A1c Ferritin AST ALT Alkaline Phosphatase Lactate Dehydrogenase C-Reactive Protein Total Protein 6.0 L Albumin 3.2 L Arterial Blood Glucose Coronavirus (PCR) 05/04/21 05/05/21 05/05/21 23:32 05:00 05:13 WBC MCH MCHC RDW Lymph % (Auto) Lymph # (Auto) Baso # (Auto) Seg Neutrophils % Seg Neuts % (Manual) Lymphocytes % (Manual) Seg Neutrophils # Seg Neutrophils # Man Lymphocytes # (Manual) D-Dimer ABG pH POC ABG pO2 ABG pO2 ABG HCO3 ABG O2 Saturation ABG Base Excess ABG Oxyhemoglobin ABG Sodium ABG Chloride ABG Glucose Oxyhemoglobin Carboxyhemoglobin Sodium 132 L Potassium Chloride 96.4 L Carbon Dioxide BUN 22 H Creatinine 0.3 L Glucose 228 H POC Glucose 154 H 260 H Hemoglobin A1c Ferritin AST ALT 67 H Alkaline Phosphatase Lactate Dehydrogenase C-Reactive Protein Total Protein 6.1 L Albumin 3.2 L Arterial Blood Glucose Coronavirus (PCR) 05/05/21 05/05/21 05/05/21 11:32 17:49 23:07 WBC MCH MCHC RDW Lymph % (Auto) Lymph # (Auto) Baso # (Auto) Seg Neutrophils % Seg Neuts % (Manual) Lymphocytes % (Manual) Seg Neutrophils # Seg Neutrophils # Man Lymphocytes # (Manual) D-Dimer ABG pH POC ABG pO2 ABG pO2 ABG HCO3 ABG O2 Saturation ABG Base Excess ABG Oxyhemoglobin ABG Sodium ABG Chloride ABG Glucose Oxyhemoglobin Carboxyhemoglobin Sodium Potassium Chloride Carbon Dioxide BUN Creatinine Glucose POC Glucose 279 H 308 H 213 H Hemoglobin A1c Ferritin AST ALT Alkaline Phosphatase Lactate Dehydrogenase C-Reactive Protein Total Protein Albumin Arterial Blood Glucose Coronavirus (PCR) 05/06/21 05/06/21 05/06/21 05:00 05:00 05:20 WBC MCH MCHC RDW 16.8 H Lymph % (Auto) Lymph # (Auto) Baso # (Auto) Seg Neutrophils % Seg Neuts % (Manual) 99.0 H Lymphocytes % (Manual) Seg Neutrophils # Seg Neutrophils # Man 10.9 H Lymphocytes # (Manual) 0.0 L D-Dimer ABG pH POC ABG pO2 ABG pO2 ABG HCO3 ABG O2 Saturation ABG Base Excess ABG Oxyhemoglobin ABG Sodium ABG Chloride ABG Glucose Oxyhemoglobin Carboxyhemoglobin Sodium 133 L Potassium Chloride Carbon Dioxide BUN 21 H Creatinine 0.3 L Glucose 259 H POC Glucose 308 H Hemoglobin A1c Ferritin AST ALT Alkaline Phosphatase Lactate Dehydrogenase C-Reactive Protein Total Protein Albumin 3.2 L Arterial Blood Glucose Coronavirus (PCR) 05/06/21 05/06/21 05/06/21 11:24 17:54 21:32 WBC MCH MCHC RDW Lymph % (Auto) Lymph # (Auto) Baso # (Auto) Seg Neutrophils % Seg Neuts % (Manual) Lymphocytes % (Manual) Seg Neutrophils # Seg Neutrophils # Man Lymphocytes # (Manual) D-Dimer ABG pH POC ABG pO2 ABG pO2 ABG HCO3 ABG O2 Saturation ABG Base Excess ABG Oxyhemoglobin ABG Sodium ABG Chloride ABG Glucose Oxyhemoglobin Carboxyhemoglobin Sodium Potassium Chloride Carbon Dioxide BUN Creatinine Glucose POC Glucose 262 H 124 H 246 H Hemoglobin A1c Ferritin AST ALT Alkaline Phosphatase Lactate Dehydrogenase C-Reactive Protein Total Protein Albumin Arterial Blood Glucose Coronavirus (PCR) 05/06/21 05/07/21 05/07/21 23:10 04:54 04:54 WBC MCH MCHC RDW Lymph % (Auto) Lymph # (Auto) Baso # (Auto) Seg Neutrophils % Seg Neuts % (Manual) Lymphocytes % (Manual) Seg Neutrophils # Seg Neutrophils # Man Lymphocytes # (Manual) D-Dimer 1609.28 H ABG pH POC ABG pO2 ABG pO2 ABG HCO3 ABG O2 Saturation ABG Base Excess ABG Oxyhemoglobin ABG Sodium ABG Chloride ABG Glucose Oxyhemoglobin Carboxyhemoglobin Sodium 136 L Potassium Chloride Carbon Dioxide BUN 23 H Creatinine 0.3 L Glucose 110 H POC Glucose 249 H Hemoglobin A1c Ferritin AST ALT Alkaline Phosphatase Lactate Dehydrogenase C-Reactive Protein Total Protein 6.2 L Albumin 3.0 L Arterial Blood Glucose Coronavirus (PCR) 05/07/21 05/07/21 05/07/21 04:54 04:54 11:41 WBC MCH MCHC RDW Lymph % (Auto) Lymph # (Auto) Baso # (Auto) Seg Neutrophils % Seg Neuts % (Manual) Lymphocytes % (Manual) Seg Neutrophils # Seg Neutrophils # Man Lymphocytes # (Manual) D-Dimer ABG pH POC ABG pO2 ABG pO2 ABG HCO3 ABG O2 Saturation ABG Base Excess ABG Oxyhemoglobin ABG Sodium ABG Chloride ABG Glucose Oxyhemoglobin Carboxyhemoglobin Sodium Potassium Chloride Carbon Dioxide BUN Creatinine Glucose POC Glucose 118 H Hemoglobin A1c Ferritin 296.1 H AST ALT Alkaline Phosphatase Lactate Dehydrogenase 724 H C-Reactive Protein Total Protein Albumin Arterial Blood Glucose Coronavirus (PCR) 05/07/21 05/07/21 05/08/21 16:43 22:34 06:44 WBC MCH MCHC RDW Lymph % (Auto) Lymph # (Auto) Baso # (Auto) Seg Neutrophils % Seg Neuts % (Manual) Lymphocytes % (Manual) Seg Neutrophils # Seg Neutrophils # Man Lymphocytes # (Manual) D-Dimer ABG pH POC ABG pO2 ABG pO2 ABG HCO3 ABG O2 Saturation ABG Base Excess ABG Oxyhemoglobin ABG Sodium ABG Chloride ABG Glucose Oxyhemoglobin Carboxyhemoglobin Sodium Potassium Chloride Carbon Dioxide BUN Creatinine Glucose POC Glucose 159 H 233 H 235 H Hemoglobin A1c Ferritin AST ALT Alkaline Phosphatase Lactate Dehydrogenase C-Reactive Protein Total Protein Albumin Arterial Blood Glucose Coronavirus (PCR) 05/08/21 05/08/21 05/08/21 07:49 11:56 17:13 WBC MCH MCHC RDW Lymph % (Auto) Lymph # (Auto) Baso # (Auto) Seg Neutrophils % Seg Neuts % (Manual) Lymphocytes % (Manual) Seg Neutrophils # Seg Neutrophils # Man Lymphocytes # (Manual) D-Dimer ABG pH POC ABG pO2 ABG pO2 ABG HCO3 ABG O2 Saturation ABG Base Excess ABG Oxyhemoglobin ABG Sodium ABG Chloride ABG Glucose Oxyhemoglobin Carboxyhemoglobin Sodium Potassium Chloride Carbon Dioxide BUN Creatinine Glucose POC Glucose 219 H 184 H 182 H Hemoglobin A1c Ferritin AST ALT Alkaline Phosphatase Lactate Dehydrogenase C-Reactive Protein Total Protein Albumin Arterial Blood Glucose Coronavirus (PCR) 05/08/21 05/09/21 05/09/21 23:35 05:20 05:20 WBC MCH MCHC RDW Lymph % (Auto) Lymph # (Auto) Baso # (Auto) Seg Neutrophils % Seg Neuts % (Manual) Lymphocytes % (Manual) Seg Neutrophils # Seg Neutrophils # Man Lymphocytes # (Manual) D-Dimer 1003.87 H ABG pH POC ABG pO2 ABG pO2 ABG HCO3 ABG O2 Saturation ABG Base Excess ABG Oxyhemoglobin ABG Sodium ABG Chloride ABG Glucose Oxyhemoglobin Carboxyhemoglobin Sodium Potassium Chloride Carbon Dioxide BUN Creatinine Glucose POC Glucose 198 H Hemoglobin A1c Ferritin 378.7 H AST ALT Alkaline Phosphatase Lactate Dehydrogenase C-Reactive Protein Total Protein Albumin Arterial Blood Glucose Coronavirus (PCR) 05/09/21 05/09/21 05/09/21 05:20 06:04 12:53 WBC MCH MCHC RDW Lymph % (Auto) Lymph # (Auto) Baso # (Auto) Seg Neutrophils % Seg Neuts % (Manual) Lymphocytes % (Manual) Seg Neutrophils # Seg Neutrophils # Man Lymphocytes # (Manual) D-Dimer ABG pH POC ABG pO2 ABG pO2 ABG HCO3 ABG O2 Saturation ABG Base Excess ABG Oxyhemoglobin ABG Sodium ABG Chloride ABG Glucose Oxyhemoglobin Carboxyhemoglobin Sodium Potassium Chloride Carbon Dioxide BUN Creatinine Glucose POC Glucose 159 H 180 H Hemoglobin A1c Ferritin AST ALT Alkaline Phosphatase Lactate Dehydrogenase 558 H C-Reactive Protein 2.40 H Total Protein Albumin Arterial Blood Glucose Coronavirus (PCR) 05/09/21 05/09/21 05/10/21 16:43 21:27 10:18 WBC MCH MCHC RDW Lymph % (Auto) Lymph # (Auto) Baso # (Auto) Seg Neutrophils % Seg Neuts % (Manual) Lymphocytes % (Manual) Seg Neutrophils # Seg Neutrophils # Man Lymphocytes # (Manual) D-Dimer ABG pH POC ABG pO2 ABG pO2 ABG HCO3 ABG O2 Saturation ABG Base Excess ABG Oxyhemoglobin ABG Sodium ABG Chloride ABG Glucose Oxyhemoglobin Carboxyhemoglobin Sodium Potassium Chloride Carbon Dioxide BUN Creatinine Glucose POC Glucose 212 H 285 H 261 H Hemoglobin A1c Ferritin AST ALT Alkaline Phosphatase Lactate Dehydrogenase C-Reactive Protein Total Protein Albumin Arterial Blood Glucose Coronavirus (PCR) 05/10/21 05/10/21 05/11/21 17:58 18:02 00:29 WBC MCH MCHC RDW Lymph % (Auto) Lymph # (Auto) Baso # (Auto) Seg Neutrophils % Seg Neuts % (Manual) Lymphocytes % (Manual) Seg Neutrophils # Seg Neutrophils # Man Lymphocytes # (Manual) D-Dimer ABG pH POC ABG pO2 ABG pO2 ABG HCO3 ABG O2 Saturation ABG Base Excess ABG Oxyhemoglobin ABG Sodium ABG Chloride ABG Glucose Oxyhemoglobin Carboxyhemoglobin Sodium Potassium Chloride Carbon Dioxide BUN Creatinine Glucose POC Glucose 213 H 179 H 149 H Hemoglobin A1c Ferritin AST ALT Alkaline Phosphatase Lactate Dehydrogenase C-Reactive Protein Total Protein Albumin Arterial Blood Glucose Coronavirus (PCR) 05/11/21 05/11/21 05/11/21 05:22 11:32 17:00 WBC 14.9 H MCH MCHC RDW 18.9 H Lymph % (Auto) 4.9 L Lymph # (Auto) 0.7 L Baso # (Auto) 0.2 H Seg Neutrophils % Seg Neuts % (Manual) Lymphocytes % (Manual) Seg Neutrophils # 13.3 H Seg Neutrophils # Man Lymphocytes # (Manual) D-Dimer ABG pH POC ABG pO2 ABG pO2 ABG HCO3 ABG O2 Saturation ABG Base Excess ABG Oxyhemoglobin ABG Sodium ABG Chloride ABG Glucose Oxyhemoglobin Carboxyhemoglobin Sodium Potassium Chloride Carbon Dioxide BUN Creatinine Glucose POC Glucose 162 H 179 H Hemoglobin A1c Ferritin AST ALT Alkaline Phosphatase Lactate Dehydrogenase C-Reactive Protein Total Protein Albumin Arterial Blood Glucose Coronavirus (PCR) 05/11/21 05/11/21 05/11/21 17:00 17:33 22:03 WBC MCH MCHC RDW Lymph % (Auto) Lymph # (Auto) Baso # (Auto) Seg Neutrophils % Seg Neuts % (Manual) Lymphocytes % (Manual) Seg Neutrophils # Seg Neutrophils # Man Lymphocytes # (Manual) D-Dimer ABG pH POC ABG pO2 ABG pO2 ABG HCO3 ABG O2 Saturation ABG Base Excess ABG Oxyhemoglobin ABG Sodium ABG Chloride ABG Glucose Oxyhemoglobin Carboxyhemoglobin Sodium 135 L Potassium Chloride 97.3 L Carbon Dioxide BUN 21 H Creatinine 0.3 L Glucose 133 H POC Glucose 140 H 282 H Hemoglobin A1c Ferritin AST ALT 60 H Alkaline Phosphatase Lactate Dehydrogenase C-Reactive Protein Total Protein Albumin 3.1 L Arterial Blood Glucose Coronavirus (PCR) 05/12/21 05/12/21 05/12/21 04:05 04:05 04:05 WBC MCH MCHC RDW 18.4 H Lymph % (Auto) Lymph # (Auto) Baso # (Auto) Seg Neutrophils % Seg Neuts % (Manual) 94.0 H Lymphocytes % (Manual) 4.0 L Seg Neutrophils # Seg Neutrophils # Man Lymphocytes # (Manual) 0.3 L D-Dimer ABG pH POC ABG pO2 ABG pO2 ABG HCO3 ABG O2 Saturation ABG Base Excess ABG Oxyhemoglobin ABG Sodium ABG Chloride ABG Glucose Oxyhemoglobin Carboxyhemoglobin Sodium 136 L Potassium Chloride Carbon Dioxide BUN 18 H Creatinine 0.2 L Glucose 142 H POC Glucose Hemoglobin A1c Ferritin 350.7 H AST ALT Alkaline Phosphatase Lactate Dehydrogenase 546 H C-Reactive Protein Total Protein 6.1 L Albumin 3.0 L Arterial Blood Glucose Coronavirus (PCR) 05/12/21 05/12/21 05/12/21 05:11 11:17 16:27 WBC MCH MCHC RDW Lymph % (Auto) Lymph # (Auto) Baso # (Auto) Seg Neutrophils % Seg Neuts % (Manual) Lymphocytes % (Manual) Seg Neutrophils # Seg Neutrophils # Man Lymphocytes # (Manual) D-Dimer ABG pH POC ABG pO2 ABG pO2 ABG HCO3 ABG O2 Saturation ABG Base Excess ABG Oxyhemoglobin ABG Sodium ABG Chloride ABG Glucose Oxyhemoglobin Carboxyhemoglobin Sodium Potassium Chloride Carbon Dioxide BUN Creatinine Glucose POC Glucose 152 H 190 H 261 H Hemoglobin A1c Ferritin AST ALT Alkaline Phosphatase Lactate Dehydrogenase C-Reactive Protein Total Protein Albumin Arterial Blood Glucose Coronavirus (PCR) 05/12/21 05/13/21 05/13/21 20:55 11:08 21:41 WBC MCH MCHC RDW Lymph % (Auto) Lymph # (Auto) Baso # (Auto) Seg Neutrophils % Seg Neuts % (Manual) Lymphocytes % (Manual) Seg Neutrophils # Seg Neutrophils # Man Lymphocytes # (Manual) D-Dimer ABG pH POC ABG pO2 ABG pO2 ABG HCO3 ABG O2 Saturation ABG Base Excess ABG Oxyhemoglobin ABG Sodium ABG Chloride ABG Glucose Oxyhemoglobin Carboxyhemoglobin Sodium Potassium Chloride Carbon Dioxide BUN Creatinine Glucose POC Glucose 231 H 106 H 174 H Hemoglobin A1c Ferritin AST ALT Alkaline Phosphatase Lactate Dehydrogenase C-Reactive Protein Total Protein Albumin Arterial Blood Glucose Coronavirus (PCR) 05/14/21 05/14/21 05/14/21 00:53 02:23 06:06 WBC MCH MCHC RDW Lymph % (Auto) Lymph # (Auto) Baso # (Auto) Seg Neutrophils % Seg Neuts % (Manual) Lymphocytes % (Manual) Seg Neutrophils # Seg Neutrophils # Man Lymphocytes # (Manual) D-Dimer ABG pH POC ABG pO2 ABG pO2 130.3 H ABG HCO3 30.6 H ABG O2 Saturation ABG Base Excess 4.9 H ABG Oxyhemoglobin ABG Sodium ABG Chloride ABG Glucose Oxyhemoglobin Carboxyhemoglobin Sodium Potassium Chloride Carbon Dioxide BUN Creatinine Glucose POC Glucose 229 H 119 H Hemoglobin A1c Ferritin AST ALT Alkaline Phosphatase Lactate Dehydrogenase C-Reactive Protein Total Protein Albumin Arterial Blood Glucose Coronavirus (PCR) 05/14/21 05/14/21 05/14/21 07:13 07:13 07:13 WBC MCH MCHC RDW Lymph % (Auto) Lymph # (Auto) Baso # (Auto) Seg Neutrophils % Seg Neuts % (Manual) Lymphocytes % (Manual) Seg Neutrophils # Seg Neutrophils # Man Lymphocytes # (Manual) D-Dimer 712.80 H ABG pH POC ABG pO2 ABG pO2 ABG HCO3 ABG O2 Saturation ABG Base Excess ABG Oxyhemoglobin ABG Sodium ABG Chloride ABG Glucose Oxyhemoglobin Carboxyhemoglobin Sodium 133 L Potassium Chloride 95.5 L Carbon Dioxide 32 H BUN Creatinine 0.2 L Glucose 137 H POC Glucose Hemoglobin A1c Ferritin 283.5 H AST ALT 63 H Alkaline Phosphatase Lactate Dehydrogenase 563 H C-Reactive Protein Total Protein 6.1 L Albumin 3.0 L Arterial Blood Glucose Coronavirus (PCR) 05/14/21 05/14/21 05/14/21 12:21 15:33 21:50 WBC MCH MCHC RDW Lymph % (Auto) Lymph # (Auto) Baso # (Auto) Seg Neutrophils % Seg Neuts % (Manual) Lymphocytes % (Manual) Seg Neutrophils # Seg Neutrophils # Man Lymphocytes # (Manual) D-Dimer ABG pH POC ABG pO2 ABG pO2 ABG HCO3 ABG O2 Saturation ABG Base Excess ABG Oxyhemoglobin ABG Sodium ABG Chloride ABG Glucose Oxyhemoglobin Carboxyhemoglobin Sodium Potassium Chloride Carbon Dioxide BUN Creatinine Glucose POC Glucose 143 H 204 H 202 H Hemoglobin A1c Ferritin AST ALT Alkaline Phosphatase Lactate Dehydrogenase C-Reactive Protein Total Protein Albumin Arterial Blood Glucose Coronavirus (PCR) 05/15/21 05/15/21 05/15/21 05:05 11:12 16:39 WBC MCH MCHC RDW Lymph % (Auto) Lymph # (Auto) Baso # (Auto) Seg Neutrophils % Seg Neuts % (Manual) Lymphocytes % (Manual) Seg Neutrophils # Seg Neutrophils # Man Lymphocytes # (Manual) D-Dimer ABG pH POC ABG pO2 ABG pO2 ABG HCO3 ABG O2 Saturation ABG Base Excess ABG Oxyhemoglobin ABG Sodium ABG Chloride ABG Glucose Oxyhemoglobin Carboxyhemoglobin Sodium Potassium Chloride Carbon Dioxide BUN Creatinine Glucose POC Glucose 125 H 201 H 241 H Hemoglobin A1c Ferritin AST ALT Alkaline Phosphatase Lactate Dehydrogenase C-Reactive Protein Total Protein Albumin Arterial Blood Glucose Coronavirus (PCR) 05/15/21 05/16/21 05/16/21 21:31 05:04 10:40 WBC MCH MCHC RDW Lymph % (Auto) Lymph # (Auto) Baso # (Auto) Seg Neutrophils % Seg Neuts % (Manual) Lymphocytes % (Manual) Seg Neutrophils # Seg Neutrophils # Man Lymphocytes # (Manual) D-Dimer ABG pH POC ABG pO2 ABG pO2 ABG HCO3 ABG O2 Saturation ABG Base Excess ABG Oxyhemoglobin ABG Sodium ABG Chloride ABG Glucose Oxyhemoglobin Carboxyhemoglobin Sodium Potassium Chloride Carbon Dioxide BUN Creatinine Glucose POC Glucose 234 H 123 H 231 H Hemoglobin A1c Ferritin AST ALT Alkaline Phosphatase Lactate Dehydrogenase C-Reactive Protein Total Protein Albumin Arterial Blood Glucose Coronavirus (PCR) 05/16/21 05/16/21 05/17/21 18:23 21:29 06:20 WBC MCH MCHC RDW 18.8 H Lymph % (Auto) 10.2 L Lymph # (Auto) 0.8 L Baso # (Auto) Seg Neutrophils % 85.8 H Seg Neuts % (Manual) Lymphocytes % (Manual) Seg Neutrophils # Seg Neutrophils # Man Lymphocytes # (Manual) D-Dimer ABG pH POC ABG pO2 ABG pO2 ABG HCO3 ABG O2 Saturation ABG Base Excess ABG Oxyhemoglobin ABG Sodium ABG Chloride ABG Glucose Oxyhemoglobin Carboxyhemoglobin Sodium Potassium Chloride Carbon Dioxide BUN Creatinine Glucose POC Glucose 266 H 234 H Hemoglobin A1c Ferritin AST ALT Alkaline Phosphatase Lactate Dehydrogenase C-Reactive Protein Total Protein Albumin Arterial Blood Glucose Coronavirus (PCR) 05/17/21 05/17/21 05/17/21 06:20 11:06 16:36 WBC MCH MCHC RDW Lymph % (Auto) Lymph # (Auto) Baso # (Auto) Seg Neutrophils % Seg Neuts % (Manual) Lymphocytes % (Manual) Seg Neutrophils # Seg Neutrophils # Man Lymphocytes # (Manual) D-Dimer ABG pH POC ABG pO2 ABG pO2 ABG HCO3 ABG O2 Saturation ABG Base Excess ABG Oxyhemoglobin ABG Sodium ABG Chloride ABG Glucose Oxyhemoglobin Carboxyhemoglobin Sodium Potassium Chloride Carbon Dioxide 33 H BUN Creatinine 0.2 L Glucose 101 H POC Glucose 209 H 180 H Hemoglobin A1c Ferritin AST ALT Alkaline Phosphatase Lactate Dehydrogenase C-Reactive Protein Total Protein Albumin Arterial Blood Glucose Coronavirus (PCR) 05/17/21 05/18/21 05/18/21 21:06 12:00 15:06 WBC MCH MCHC RDW Lymph % (Auto) Lymph # (Auto) Baso # (Auto) Seg Neutrophils % Seg Neuts % (Manual) Lymphocytes % (Manual) Seg Neutrophils # Seg Neutrophils # Man Lymphocytes # (Manual) D-Dimer 874.02 H ABG pH POC ABG pO2 ABG pO2 ABG HCO3 ABG O2 Saturation ABG Base Excess ABG Oxyhemoglobin ABG Sodium ABG Chloride ABG Glucose Oxyhemoglobin Carboxyhemoglobin Sodium Potassium Chloride Carbon Dioxide BUN Creatinine Glucose POC Glucose 256 H 139 H Hemoglobin A1c Ferritin AST ALT Alkaline Phosphatase Lactate Dehydrogenase C-Reactive Protein Total Protein Albumin Arterial Blood Glucose Coronavirus (PCR) 05/18/21 05/18/21 05/18/21 15:06 15:06 16:08 WBC MCH MCHC RDW Lymph % (Auto) Lymph # (Auto) Baso # (Auto) Seg Neutrophils % Seg Neuts % (Manual) Lymphocytes % (Manual) Seg Neutrophils # Seg Neutrophils # Man Lymphocytes # (Manual) D-Dimer ABG pH POC ABG pO2 ABG pO2 ABG HCO3 ABG O2 Saturation ABG Base Excess ABG Oxyhemoglobin ABG Sodium ABG Chloride ABG Glucose Oxyhemoglobin Carboxyhemoglobin Sodium Potassium Chloride Carbon Dioxide BUN Creatinine Glucose POC Glucose 178 H Hemoglobin A1c Ferritin 289.6 H AST ALT Alkaline Phosphatase Lactate Dehydrogenase 605 H C-Reactive Protein Total Protein Albumin Arterial Blood Glucose Coronavirus (PCR) 05/18/21 05/19/21 05/19/21 21:22 11:57 15:26 WBC MCH MCHC RDW Lymph % (Auto) Lymph # (Auto) Baso # (Auto) Seg Neutrophils % Seg Neuts % (Manual) Lymphocytes % (Manual) Seg Neutrophils # Seg Neutrophils # Man Lymphocytes # (Manual) D-Dimer ABG pH POC ABG pO2 ABG pO2 ABG HCO3 ABG O2 Saturation ABG Base Excess ABG Oxyhemoglobin ABG Sodium ABG Chloride ABG Glucose Oxyhemoglobin Carboxyhemoglobin Sodium Potassium Chloride Carbon Dioxide BUN Creatinine Glucose POC Glucose 241 H 201 H 209 H Hemoglobin A1c Ferritin AST ALT Alkaline Phosphatase Lactate Dehydrogenase C-Reactive Protein Total Protein Albumin Arterial Blood Glucose Coronavirus (PCR) 05/19/21 05/20/21 05/20/21 20:59 07:38 08:01 WBC MCH MCHC RDW 19.7 H Lymph % (Auto) 8.3 L Lymph # (Auto) 0.8 L Baso # (Auto) Seg Neutrophils % 88.6 H Seg Neuts % (Manual) Lymphocytes % (Manual) Seg Neutrophils # 8.4 H Seg Neutrophils # Man Lymphocytes # (Manual) D-Dimer ABG pH POC ABG pO2 ABG pO2 ABG HCO3 ABG O2 Saturation ABG Base Excess ABG Oxyhemoglobin ABG Sodium ABG Chloride ABG Glucose Oxyhemoglobin Carboxyhemoglobin Sodium Potassium Chloride Carbon Dioxide BUN Creatinine Glucose POC Glucose 226 H 130 H Hemoglobin A1c Ferritin AST ALT Alkaline Phosphatase Lactate Dehydrogenase C-Reactive Protein Total Protein Albumin Arterial Blood Glucose Coronavirus (PCR) 05/20/21 05/20/21 05/20/21 08:01 11:00 16:43 WBC MCH MCHC RDW Lymph % (Auto) Lymph # (Auto) Baso # (Auto) Seg Neutrophils % Seg Neuts % (Manual) Lymphocytes % (Manual) Seg Neutrophils # Seg Neutrophils # Man Lymphocytes # (Manual) D-Dimer ABG pH POC ABG pO2 ABG pO2 ABG HCO3 ABG O2 Saturation ABG Base Excess ABG Oxyhemoglobin ABG Sodium ABG Chloride ABG Glucose Oxyhemoglobin Carboxyhemoglobin Sodium Potassium Chloride Carbon Dioxide BUN 18 H Creatinine 0.2 L Glucose 132 H POC Glucose 237 H 240 H Hemoglobin A1c Ferritin AST ALT Alkaline Phosphatase Lactate Dehydrogenase C-Reactive Protein Total Protein Albumin Arterial Blood Glucose Coronavirus (PCR) 05/20/21 05/21/21 05/21/21 21:21 07:35 11:32 WBC MCH MCHC RDW Lymph % (Auto) Lymph # (Auto) Baso # (Auto) Seg Neutrophils % Seg Neuts % (Manual) Lymphocytes % (Manual) Seg Neutrophils # Seg Neutrophils # Man Lymphocytes # (Manual) D-Dimer ABG pH POC ABG pO2 ABG pO2 ABG HCO3 ABG O2 Saturation ABG Base Excess ABG Oxyhemoglobin ABG Sodium ABG Chloride ABG Glucose Oxyhemoglobin Carboxyhemoglobin Sodium Potassium Chloride Carbon Dioxide BUN Creatinine Glucose POC Glucose 241 H 162 H 171 H Hemoglobin A1c Ferritin AST ALT Alkaline Phosphatase Lactate Dehydrogenase C-Reactive Protein Total Protein Albumin Arterial Blood Glucose Coronavirus (PCR) 05/21/21 05/21/21 05/22/21 16:22 20:43 05:14 WBC MCH MCHC RDW Lymph % (Auto) Lymph # (Auto) Baso # (Auto) Seg Neutrophils % Seg Neuts % (Manual) Lymphocytes % (Manual) Seg Neutrophils # Seg Neutrophils # Man Lymphocytes # (Manual) D-Dimer ABG pH POC ABG pO2 ABG pO2 ABG HCO3 ABG O2 Saturation ABG Base Excess ABG Oxyhemoglobin ABG Sodium ABG Chloride ABG Glucose Oxyhemoglobin Carboxyhemoglobin Sodium Potassium Chloride Carbon Dioxide BUN Creatinine Glucose POC Glucose 244 H 299 H 140 H Hemoglobin A1c Ferritin AST ALT Alkaline Phosphatase Lactate Dehydrogenase C-Reactive Protein Total Protein Albumin Arterial Blood Glucose Coronavirus (PCR) 05/22/21 05/22/21 05/22/21 08:45 11:54 16:15 WBC MCH MCHC RDW Lymph % (Auto) Lymph # (Auto) Baso # (Auto) Seg Neutrophils % Seg Neuts % (Manual) Lymphocytes % (Manual) Seg Neutrophils # Seg Neutrophils # Man Lymphocytes # (Manual) D-Dimer ABG pH POC ABG pO2 ABG pO2 ABG HCO3 ABG O2 Saturation ABG Base Excess ABG Oxyhemoglobin ABG Sodium ABG Chloride ABG Glucose Oxyhemoglobin Carboxyhemoglobin Sodium Potassium Chloride Carbon Dioxide BUN Creatinine Glucose POC Glucose 133 H 265 H 221 H Hemoglobin A1c Ferritin AST ALT Alkaline Phosphatase Lactate Dehydrogenase C-Reactive Protein Total Protein Albumin Arterial Blood Glucose Coronavirus (PCR) 05/22/21 05/23/21 05/23/21 21:43 08:20 09:50 WBC MCH MCHC RDW Lymph % (Auto) Lymph # (Auto) Baso # (Auto) Seg Neutrophils % Seg Neuts % (Manual) Lymphocytes % (Manual) Seg Neutrophils # Seg Neutrophils # Man Lymphocytes # (Manual) D-Dimer 910.38 H ABG pH POC ABG pO2 ABG pO2 ABG HCO3 ABG O2 Saturation ABG Base Excess ABG Oxyhemoglobin ABG Sodium ABG Chloride ABG Glucose Oxyhemoglobin Carboxyhemoglobin Sodium Potassium Chloride Carbon Dioxide BUN Creatinine Glucose POC Glucose 262 H 140 H Hemoglobin A1c Ferritin AST ALT Alkaline Phosphatase Lactate Dehydrogenase C-Reactive Protein Total Protein Albumin Arterial Blood Glucose Coronavirus (PCR) 05/23/21 05/23/21 05/23/21 09:50 09:50 10:52 WBC MCH MCHC RDW Lymph % (Auto) Lymph # (Auto) Baso # (Auto) Seg Neutrophils % Seg Neuts % (Manual) Lymphocytes % (Manual) Seg Neutrophils # Seg Neutrophils # Man Lymphocytes # (Manual) D-Dimer ABG pH POC ABG pO2 ABG pO2 ABG HCO3 ABG O2 Saturation ABG Base Excess ABG Oxyhemoglobin ABG Sodium ABG Chloride ABG Glucose Oxyhemoglobin Carboxyhemoglobin Sodium Potassium Chloride Carbon Dioxide BUN Creatinine Glucose POC Glucose 241 H Hemoglobin A1c Ferritin 244.9 H AST ALT Alkaline Phosphatase Lactate Dehydrogenase 584 H C-Reactive Protein Total Protein Albumin Arterial Blood Glucose Coronavirus (PCR) 05/23/21 05/23/21 05/24/21 17:24 21:52 07:44 WBC MCH MCHC RDW Lymph % (Auto) Lymph # (Auto) Baso # (Auto) Seg Neutrophils % Seg Neuts % (Manual) Lymphocytes % (Manual) Seg Neutrophils # Seg Neutrophils # Man Lymphocytes # (Manual) D-Dimer ABG pH POC ABG pO2 ABG pO2 ABG HCO3 ABG O2 Saturation ABG Base Excess ABG Oxyhemoglobin ABG Sodium ABG Chloride ABG Glucose Oxyhemoglobin Carboxyhemoglobin Sodium Potassium Chloride Carbon Dioxide BUN Creatinine Glucose POC Glucose 197 H 289 H 161 H Hemoglobin A1c Ferritin AST ALT Alkaline Phosphatase Lactate Dehydrogenase C-Reactive Protein Total Protein Albumin Arterial Blood Glucose Coronavirus (PCR) 05/24/21 05/24/21 05/24/21 11:17 17:51 21:26 WBC MCH MCHC RDW Lymph % (Auto) Lymph # (Auto) Baso # (Auto) Seg Neutrophils % Seg Neuts % (Manual) Lymphocytes % (Manual) Seg Neutrophils # Seg Neutrophils # Man Lymphocytes # (Manual) D-Dimer ABG pH POC ABG pO2 ABG pO2 ABG HCO3 ABG O2 Saturation ABG Base Excess ABG Oxyhemoglobin ABG Sodium ABG Chloride ABG Glucose Oxyhemoglobin Carboxyhemoglobin Sodium Potassium Chloride Carbon Dioxide BUN Creatinine Glucose POC Glucose 308 H 175 H 198 H Hemoglobin A1c Ferritin AST ALT Alkaline Phosphatase Lactate Dehydrogenase C-Reactive Protein Total Protein Albumin Arterial Blood Glucose Coronavirus (PCR) 05/25/21 05/25/21 05/25/21 08:14 11:13 17:13 WBC MCH MCHC RDW Lymph % (Auto) Lymph # (Auto) Baso # (Auto) Seg Neutrophils % Seg Neuts % (Manual) Lymphocytes % (Manual) Seg Neutrophils # Seg Neutrophils # Man Lymphocytes # (Manual) D-Dimer ABG pH POC ABG pO2 ABG pO2 ABG HCO3 ABG O2 Saturation ABG Base Excess ABG Oxyhemoglobin ABG Sodium ABG Chloride ABG Glucose Oxyhemoglobin Carboxyhemoglobin Sodium Potassium Chloride Carbon Dioxide BUN Creatinine Glucose POC Glucose 203 H 339 H 235 H Hemoglobin A1c Ferritin AST ALT Alkaline Phosphatase Lactate Dehydrogenase C-Reactive Protein Total Protein Albumin Arterial Blood Glucose Coronavirus (PCR) 05/25/21 05/26/21 05/26/21 21:03 07:33 11:19 WBC MCH MCHC RDW Lymph % (Auto) Lymph # (Auto) Baso # (Auto) Seg Neutrophils % Seg Neuts % (Manual) Lymphocytes % (Manual) Seg Neutrophils # Seg Neutrophils # Man Lymphocytes # (Manual) D-Dimer ABG pH POC ABG pO2 ABG pO2 ABG HCO3 ABG O2 Saturation ABG Base Excess ABG Oxyhemoglobin ABG Sodium ABG Chloride ABG Glucose Oxyhemoglobin Carboxyhemoglobin Sodium Potassium Chloride Carbon Dioxide BUN Creatinine Glucose POC Glucose 263 H 156 H 288 H Hemoglobin A1c Ferritin AST ALT Alkaline Phosphatase Lactate Dehydrogenase C-Reactive Protein Total Protein Albumin Arterial Blood Glucose Coronavirus (PCR) 05/26/21 05/26/21 05/27/21 16:26 20:55 07:38 WBC MCH MCHC RDW Lymph % (Auto) Lymph # (Auto) Baso # (Auto) Seg Neutrophils % Seg Neuts % (Manual) Lymphocytes % (Manual) Seg Neutrophils # Seg Neutrophils # Man Lymphocytes # (Manual) D-Dimer ABG pH POC ABG pO2 ABG pO2 ABG HCO3 ABG O2 Saturation ABG Base Excess ABG Oxyhemoglobin ABG Sodium ABG Chloride ABG Glucose Oxyhemoglobin Carboxyhemoglobin Sodium Potassium Chloride Carbon Dioxide BUN Creatinine Glucose POC Glucose 286 H 293 H 115 H Hemoglobin A1c Ferritin AST ALT Alkaline Phosphatase Lactate Dehydrogenase C-Reactive Protein Total Protein Albumin Arterial Blood Glucose Coronavirus (PCR) 05/27/21 05/27/21 05/27/21 11:46 15:58 21:02 WBC MCH MCHC RDW Lymph % (Auto) Lymph # (Auto) Baso # (Auto) Seg Neutrophils % Seg Neuts % (Manual) Lymphocytes % (Manual) Seg Neutrophils # Seg Neutrophils # Man Lymphocytes # (Manual) D-Dimer ABG pH POC ABG pO2 ABG pO2 ABG HCO3 ABG O2 Saturation ABG Base Excess ABG Oxyhemoglobin ABG Sodium ABG Chloride ABG Glucose Oxyhemoglobin Carboxyhemoglobin Sodium Potassium Chloride Carbon Dioxide BUN Creatinine Glucose POC Glucose 260 H 318 H 246 H Hemoglobin A1c Ferritin AST ALT Alkaline Phosphatase Lactate Dehydrogenase C-Reactive Protein Total Protein Albumin Arterial Blood Glucose Coronavirus (PCR) 05/28/21 05/28/21 05/28/21 07:34 11:31 16:36 WBC MCH MCHC RDW Lymph % (Auto) Lymph # (Auto) Baso # (Auto) Seg Neutrophils % Seg Neuts % (Manual) Lymphocytes % (Manual) Seg Neutrophils # Seg Neutrophils # Man Lymphocytes # (Manual) D-Dimer ABG pH POC ABG pO2 ABG pO2 ABG HCO3 ABG O2 Saturation ABG Base Excess ABG Oxyhemoglobin ABG Sodium ABG Chloride ABG Glucose Oxyhemoglobin Carboxyhemoglobin Sodium Potassium Chloride Carbon Dioxide BUN Creatinine Glucose POC Glucose 185 H 297 H 183 H Hemoglobin A1c Ferritin AST ALT Alkaline Phosphatase Lactate Dehydrogenase C-Reactive Protein Total Protein Albumin Arterial Blood Glucose Coronavirus (PCR) 05/28/21 05/29/21 05/29/21 21:19 07:34 11:19 WBC MCH MCHC RDW Lymph % (Auto) Lymph # (Auto) Baso # (Auto) Seg Neutrophils % Seg Neuts % (Manual) Lymphocytes % (Manual) Seg Neutrophils # Seg Neutrophils # Man Lymphocytes # (Manual) D-Dimer ABG pH POC ABG pO2 ABG pO2 ABG HCO3 ABG O2 Saturation ABG Base Excess ABG Oxyhemoglobin ABG Sodium ABG Chloride ABG Glucose Oxyhemoglobin Carboxyhemoglobin Sodium Potassium Chloride Carbon Dioxide BUN Creatinine Glucose POC Glucose 274 H 139 H 293 H Hemoglobin A1c Ferritin AST ALT Alkaline Phosphatase Lactate Dehydrogenase C-Reactive Protein Total Protein Albumin Arterial Blood Glucose Coronavirus (PCR) 05/29/21 05/29/21 05/30/21 16:36 22:44 05:55 WBC MCH MCHC RDW 21.3 H Lymph % (Auto) 8.0 L Lymph # (Auto) 0.6 L Baso # (Auto) Seg Neutrophils % 88.6 H Seg Neuts % (Manual) Lymphocytes % (Manual) Seg Neutrophils # Seg Neutrophils # Man Lymphocytes # (Manual) D-Dimer ABG pH POC ABG pO2 ABG pO2 ABG HCO3 ABG O2 Saturation ABG Base Excess ABG Oxyhemoglobin ABG Sodium ABG Chloride ABG Glucose Oxyhemoglobin Carboxyhemoglobin Sodium Potassium Chloride Carbon Dioxide BUN Creatinine Glucose POC Glucose 299 H 160 H Hemoglobin A1c Ferritin AST ALT Alkaline Phosphatase Lactate Dehydrogenase C-Reactive Protein Total Protein Albumin Arterial Blood Glucose Coronavirus (PCR) 05/30/21 05/30/21 05/30/21 05:55 08:04 11:13 WBC MCH MCHC RDW Lymph % (Auto) Lymph # (Auto) Baso # (Auto) Seg Neutrophils % Seg Neuts % (Manual) Lymphocytes % (Manual) Seg Neutrophils # Seg Neutrophils # Man Lymphocytes # (Manual) D-Dimer ABG pH POC ABG pO2 ABG pO2 ABG HCO3 ABG O2 Saturation ABG Base Excess ABG Oxyhemoglobin ABG Sodium ABG Chloride ABG Glucose Oxyhemoglobin Carboxyhemoglobin Sodium Potassium Chloride Carbon Dioxide BUN 19 H Creatinine 0.2 L Glucose 209 H POC Glucose 157 H 275 H Hemoglobin A1c Ferritin AST ALT Alkaline Phosphatase Lactate Dehydrogenase C-Reactive Protein Total Protein Albumin Arterial Blood Glucose Coronavirus (PCR) 05/30/21 05/30/21 05/31/21 17:08 22:12 07:36 WBC MCH MCHC RDW Lymph % (Auto) Lymph # (Auto) Baso # (Auto) Seg Neutrophils % Seg Neuts % (Manual) Lymphocytes % (Manual) Seg Neutrophils # Seg Neutrophils # Man Lymphocytes # (Manual) D-Dimer ABG pH POC ABG pO2 ABG pO2 ABG HCO3 ABG O2 Saturation ABG Base Excess ABG Oxyhemoglobin ABG Sodium ABG Chloride ABG Glucose Oxyhemoglobin Carboxyhemoglobin Sodium Potassium Chloride Carbon Dioxide BUN Creatinine Glucose POC Glucose 154 H 275 H 138 H Hemoglobin A1c Ferritin AST ALT Alkaline Phosphatase Lactate Dehydrogenase C-Reactive Protein Total Protein Albumin Arterial Blood Glucose Coronavirus (PCR) 05/31/21 05/31/21 05/31/21 11:17 16:55 21:25 WBC MCH MCHC RDW Lymph % (Auto) Lymph # (Auto) Baso # (Auto) Seg Neutrophils % Seg Neuts % (Manual) Lymphocytes % (Manual) Seg Neutrophils # Seg Neutrophils # Man Lymphocytes # (Manual) D-Dimer ABG pH POC ABG pO2 ABG pO2 ABG HCO3 ABG O2 Saturation ABG Base Excess ABG Oxyhemoglobin ABG Sodium ABG Chloride ABG Glucose Oxyhemoglobin Carboxyhemoglobin Sodium Potassium Chloride Carbon Dioxide BUN Creatinine Glucose POC Glucose 258 H 215 H 318 H Hemoglobin A1c Ferritin AST ALT Alkaline Phosphatase Lactate Dehydrogenase C-Reactive Protein Total Protein Albumin Arterial Blood Glucose Coronavirus (PCR) 06/01/21 06/01/21 06/01/21 07:23 11:38 16:52 WBC MCH MCHC RDW Lymph % (Auto) Lymph # (Auto) Baso # (Auto) Seg Neutrophils % Seg Neuts % (Manual) Lymphocytes % (Manual) Seg Neutrophils # Seg Neutrophils # Man Lymphocytes # (Manual) D-Dimer ABG pH POC ABG pO2 ABG pO2 ABG HCO3 ABG O2 Saturation ABG Base Excess ABG Oxyhemoglobin ABG Sodium ABG Chloride ABG Glucose Oxyhemoglobin Carboxyhemoglobin Sodium Potassium Chloride Carbon Dioxide BUN Creatinine Glucose POC Glucose 157 H 259 H 150 H Hemoglobin A1c Ferritin AST ALT Alkaline Phosphatase Lactate Dehydrogenase C-Reactive Protein Total Protein Albumin Arterial Blood Glucose Coronavirus (PCR) 06/01/21 06/02/21 06/02/21 23:16 05:34 05:34 WBC MCH MCHC RDW 21.3 H Lymph % (Auto) 9.6 L Lymph # (Auto) 0.6 L Baso # (Auto) Seg Neutrophils % 86.2 H Seg Neuts % (Manual) Lymphocytes % (Manual) Seg Neutrophils # Seg Neutrophils # Man Lymphocytes # (Manual) D-Dimer ABG pH POC ABG pO2 ABG pO2 ABG HCO3 ABG O2 Saturation ABG Base Excess ABG Oxyhemoglobin ABG Sodium ABG Chloride ABG Glucose Oxyhemoglobin Carboxyhemoglobin Sodium 136 L Potassium Chloride Carbon Dioxide BUN Creatinine 0.2 L Glucose 186 H POC Glucose 247 H Hemoglobin A1c Ferritin AST ALT 69 H Alkaline Phosphatase Lactate Dehydrogenase C-Reactive Protein Total Protein 6.1 L Albumin 3.2 L Arterial Blood Glucose Coronavirus (PCR) 06/02/21 06/02/21 06/02/21 11:25 18:23 21:32 WBC MCH MCHC RDW Lymph % (Auto) Lymph # (Auto) Baso # (Auto) Seg Neutrophils % Seg Neuts % (Manual) Lymphocytes % (Manual) Seg Neutrophils # Seg Neutrophils # Man Lymphocytes # (Manual) D-Dimer ABG pH POC ABG pO2 ABG pO2 ABG HCO3 ABG O2 Saturation ABG Base Excess ABG Oxyhemoglobin ABG Sodium ABG Chloride ABG Glucose Oxyhemoglobin Carboxyhemoglobin Sodium Potassium Chloride Carbon Dioxide BUN Creatinine Glucose POC Glucose 157 H 299 H 246 H Hemoglobin A1c Ferritin AST ALT Alkaline Phosphatase Lactate Dehydrogenase C-Reactive Protein Total Protein Albumin Arterial Blood Glucose Coronavirus (PCR) 06/03/21 06/03/21 06/03/21 08:12 12:21 17:31 WBC MCH MCHC RDW Lymph % (Auto) Lymph # (Auto) Baso # (Auto) Seg Neutrophils % Seg Neuts % (Manual) Lymphocytes % (Manual) Seg Neutrophils # Seg Neutrophils # Man Lymphocytes # (Manual) D-Dimer ABG pH POC ABG pO2 ABG pO2 ABG HCO3 ABG O2 Saturation ABG Base Excess ABG Oxyhemoglobin ABG Sodium ABG Chloride ABG Glucose Oxyhemoglobin Carboxyhemoglobin Sodium Potassium Chloride Carbon Dioxide BUN Creatinine Glucose POC Glucose 153 H 302 H 252 H Hemoglobin A1c Ferritin AST ALT Alkaline Phosphatase Lactate Dehydrogenase C-Reactive Protein Total Protein Albumin Arterial Blood Glucose Coronavirus (PCR) 06/03/21 06/04/21 06/04/21 22:08 11:12 16:01 WBC MCH MCHC RDW Lymph % (Auto) Lymph # (Auto) Baso # (Auto) Seg Neutrophils % Seg Neuts % (Manual) Lymphocytes % (Manual) Seg Neutrophils # Seg Neutrophils # Man Lymphocytes # (Manual) D-Dimer ABG pH POC ABG pO2 ABG pO2 ABG HCO3 ABG O2 Saturation ABG Base Excess ABG Oxyhemoglobin ABG Sodium ABG Chloride ABG Glucose Oxyhemoglobin Carboxyhemoglobin Sodium Potassium Chloride Carbon Dioxide BUN Creatinine Glucose POC Glucose 224 H 259 H 238 H Hemoglobin A1c Ferritin AST ALT Alkaline Phosphatase Lactate Dehydrogenase C-Reactive Protein Total Protein Albumin Arterial Blood Glucose Coronavirus (PCR) 06/04/21 06/05/21 06/05/21 21:26 05:26 05:26 WBC MCH MCHC RDW Lymph % (Auto) Lymph # (Auto) Baso # (Auto) Seg Neutrophils % Seg Neuts % (Manual) Lymphocytes % (Manual) Seg Neutrophils # Seg Neutrophils # Man Lymphocytes # (Manual) D-Dimer 488.49 H ABG pH POC ABG pO2 ABG pO2 ABG HCO3 ABG O2 Saturation ABG Base Excess ABG Oxyhemoglobin ABG Sodium ABG Chloride ABG Glucose Oxyhemoglobin Carboxyhemoglobin Sodium Potassium Chloride Carbon Dioxide BUN Creatinine 0.2 L Glucose 198 H POC Glucose 257 H Hemoglobin A1c Ferritin AST ALT Alkaline Phosphatase Lactate Dehydrogenase 475 H C-Reactive Protein Total Protein Albumin Arterial Blood Glucose Coronavirus (PCR) 06/05/21 06/05/21 06/05/21 07:20 08:30 11:00 WBC MCH MCHC RDW Lymph % (Auto) Lymph # (Auto) Baso # (Auto) Seg Neutrophils % Seg Neuts % (Manual) Lymphocytes % (Manual) Seg Neutrophils # Seg Neutrophils # Man Lymphocytes # (Manual) D-Dimer ABG pH POC ABG pO2 ABG pO2 ABG HCO3 ABG O2 Saturation ABG Base Excess ABG Oxyhemoglobin ABG Sodium ABG Chloride ABG Glucose Oxyhemoglobin Carboxyhemoglobin Sodium Potassium Chloride Carbon Dioxide BUN Creatinine Glucose POC Glucose 146 H 246 H Hemoglobin A1c Ferritin AST ALT Alkaline Phosphatase Lactate Dehydrogenase C-Reactive Protein Total Protein Albumin Arterial Blood Glucose Coronavirus (PCR) Positive A 06/05/21 06/05/21 06/06/21 16:50 22:30 07:57 WBC MCH MCHC RDW Lymph % (Auto) Lymph # (Auto) Baso # (Auto) Seg Neutrophils % Seg Neuts % (Manual) Lymphocytes % (Manual) Seg Neutrophils # Seg Neutrophils # Man Lymphocytes # (Manual) D-Dimer ABG pH POC ABG pO2 ABG pO2 ABG HCO3 ABG O2 Saturation ABG Base Excess ABG Oxyhemoglobin ABG Sodium ABG Chloride ABG Glucose Oxyhemoglobin Carboxyhemoglobin Sodium Potassium Chloride Carbon Dioxide BUN Creatinine Glucose POC Glucose 240 H 174 H 120 H Hemoglobin A1c Ferritin AST ALT Alkaline Phosphatase Lactate Dehydrogenase C-Reactive Protein Total Protein Albumin Arterial Blood Glucose Coronavirus (PCR) 06/06/21 06/06/21 06/06/21 11:14 16:50 21:11 WBC MCH MCHC RDW Lymph % (Auto) Lymph # (Auto) Baso # (Auto) Seg Neutrophils % Seg Neuts % (Manual) Lymphocytes % (Manual) Seg Neutrophils # Seg Neutrophils # Man Lymphocytes # (Manual) D-Dimer ABG pH POC ABG pO2 ABG pO2 ABG HCO3 ABG O2 Saturation ABG Base Excess ABG Oxyhemoglobin ABG Sodium ABG Chloride ABG Glucose Oxyhemoglobin Carboxyhemoglobin Sodium Potassium Chloride Carbon Dioxide BUN Creatinine Glucose POC Glucose 267 H 218 H 124 H Hemoglobin A1c Ferritin AST ALT Alkaline Phosphatase Lactate Dehydrogenase C-Reactive Protein Total Protein Albumin Arterial Blood Glucose Coronavirus (PCR) 06/07/21 06/07/21 06/08/21 11:58 15:59 07:59 WBC MCH MCHC RDW Lymph % (Auto) Lymph # (Auto) Baso # (Auto) Seg Neutrophils % Seg Neuts % (Manual) Lymphocytes % (Manual) Seg Neutrophils # Seg Neutrophils # Man Lymphocytes # (Manual) D-Dimer ABG pH POC ABG pO2 ABG pO2 ABG HCO3 ABG O2 Saturation ABG Base Excess ABG Oxyhemoglobin ABG Sodium ABG Chloride ABG Glucose Oxyhemoglobin Carboxyhemoglobin Sodium Potassium Chloride Carbon Dioxide BUN Creatinine Glucose POC Glucose 219 H 208 H 192 H Hemoglobin A1c Ferritin AST ALT Alkaline Phosphatase Lactate Dehydrogenase C-Reactive Protein Total Protein Albumin Arterial Blood Glucose Coronavirus (PCR) 06/08/21 06/08/21 06/09/21 11:26 23:28 07:33 WBC MCH MCHC RDW Lymph % (Auto) Lymph # (Auto) Baso # (Auto) Seg Neutrophils % Seg Neuts % (Manual) Lymphocytes % (Manual) Seg Neutrophils # Seg Neutrophils # Man Lymphocytes # (Manual) D-Dimer ABG pH POC ABG pO2 ABG pO2 ABG HCO3 ABG O2 Saturation ABG Base Excess ABG Oxyhemoglobin ABG Sodium ABG Chloride ABG Glucose Oxyhemoglobin Carboxyhemoglobin Sodium Potassium Chloride Carbon Dioxide BUN Creatinine Glucose POC Glucose 307 H 138 H 145 H Hemoglobin A1c Ferritin AST ALT Alkaline Phosphatase Lactate Dehydrogenase C-Reactive Protein Total Protein Albumin Arterial Blood Glucose Coronavirus (PCR) 06/09/21 06/09/21 06/09/21 11:01 15:47 21:43 WBC MCH MCHC RDW Lymph % (Auto) Lymph # (Auto) Baso # (Auto) Seg Neutrophils % Seg Neuts % (Manual) Lymphocytes % (Manual) Seg Neutrophils # Seg Neutrophils # Man Lymphocytes # (Manual) D-Dimer ABG pH POC ABG pO2 ABG pO2 ABG HCO3 ABG O2 Saturation ABG Base Excess ABG Oxyhemoglobin ABG Sodium ABG Chloride ABG Glucose Oxyhemoglobin Carboxyhemoglobin Sodium Potassium Chloride Carbon Dioxide BUN Creatinine Glucose POC Glucose 266 H 305 H 223 H Hemoglobin A1c Ferritin AST ALT Alkaline Phosphatase Lactate Dehydrogenase C-Reactive Protein Total Protein Albumin Arterial Blood Glucose Coronavirus (PCR) 06/10/21 06/10/21 06/10/21 08:27 12:10 17:45 WBC MCH MCHC RDW Lymph % (Auto) Lymph # (Auto) Baso # (Auto) Seg Neutrophils % Seg Neuts % (Manual) Lymphocytes % (Manual) Seg Neutrophils # Seg Neutrophils # Man Lymphocytes # (Manual) D-Dimer ABG pH POC ABG pO2 ABG pO2 ABG HCO3 ABG O2 Saturation ABG Base Excess ABG Oxyhemoglobin ABG Sodium ABG Chloride ABG Glucose Oxyhemoglobin Carboxyhemoglobin Sodium Potassium Chloride Carbon Dioxide BUN Creatinine Glucose POC Glucose 174 H 306 H 210 H Hemoglobin A1c Ferritin AST ALT Alkaline Phosphatase Lactate Dehydrogenase C-Reactive Protein Total Protein Albumin Arterial Blood Glucose Coronavirus (PCR) 06/10/21 06/11/21 06/11/21 21:45 09:38 09:38 WBC MCH MCHC RDW 20.9 H Lymph % (Auto) Lymph # (Auto) Baso # (Auto) Seg Neutrophils % Seg Neuts % (Manual) Lymphocytes % (Manual) Seg Neutrophils # Seg Neutrophils # Man Lymphocytes # (Manual) D-Dimer ABG pH POC ABG pO2 ABG pO2 ABG HCO3 ABG O2 Saturation ABG Base Excess ABG Oxyhemoglobin ABG Sodium ABG Chloride ABG Glucose Oxyhemoglobin Carboxyhemoglobin Sodium 135 L Potassium Chloride 90.8 L Carbon Dioxide 36 H BUN 29 H Creatinine 0.2 L Glucose 258 H POC Glucose 262 H Hemoglobin A1c Ferritin AST ALT Alkaline Phosphatase Lactate Dehydrogenase C-Reactive Protein Total Protein Albumin Arterial Blood Glucose Coronavirus (PCR) 06/11/21 06/11/21 06/11/21 11:20 15:49 22:57 WBC MCH MCHC RDW Lymph % (Auto) Lymph # (Auto) Baso # (Auto) Seg Neutrophils % Seg Neuts % (Manual) Lymphocytes % (Manual) Seg Neutrophils # Seg Neutrophils # Man Lymphocytes # (Manual) D-Dimer ABG pH POC ABG pO2 ABG pO2 ABG HCO3 ABG O2 Saturation ABG Base Excess ABG Oxyhemoglobin ABG Sodium ABG Chloride ABG Glucose Oxyhemoglobin Carboxyhemoglobin Sodium Potassium Chloride Carbon Dioxide BUN Creatinine Glucose POC Glucose 269 H 206 H 211 H Hemoglobin A1c Ferritin AST ALT Alkaline Phosphatase Lactate Dehydrogenase C-Reactive Protein Total Protein Albumin Arterial Blood Glucose Coronavirus (PCR) 06/12/21 06/12/21 06/12/21 08:07 11:24 18:08 WBC MCH MCHC RDW Lymph % (Auto) Lymph # (Auto) Baso # (Auto) Seg Neutrophils % Seg Neuts % (Manual) Lymphocytes % (Manual) Seg Neutrophils # Seg Neutrophils # Man Lymphocytes # (Manual) D-Dimer ABG pH POC ABG pO2 ABG pO2 ABG HCO3 ABG O2 Saturation ABG Base Excess ABG Oxyhemoglobin ABG Sodium ABG Chloride ABG Glucose Oxyhemoglobin Carboxyhemoglobin Sodium Potassium Chloride Carbon Dioxide BUN Creatinine Glucose POC Glucose 149 H 270 H 166 H Hemoglobin A1c Ferritin AST ALT Alkaline Phosphatase Lactate Dehydrogenase C-Reactive Protein Total Protein Albumin Arterial Blood Glucose Coronavirus (PCR) 06/12/21 06/13/21 06/13/21 20:22 07:50 11:18 WBC MCH MCHC RDW Lymph % (Auto) Lymph # (Auto) Baso # (Auto) Seg Neutrophils % Seg Neuts % (Manual) Lymphocytes % (Manual) Seg Neutrophils # Seg Neutrophils # Man Lymphocytes # (Manual) D-Dimer ABG pH POC ABG pO2 ABG pO2 ABG HCO3 ABG O2 Saturation ABG Base Excess ABG Oxyhemoglobin ABG Sodium ABG Chloride ABG Glucose Oxyhemoglobin Carboxyhemoglobin Sodium Potassium Chloride Carbon Dioxide BUN Creatinine Glucose POC Glucose 155 H 163 H 293 H Hemoglobin A1c Ferritin AST ALT Alkaline Phosphatase Lactate Dehydrogenase C-Reactive Protein Total Protein Albumin Arterial Blood Glucose Coronavirus (PCR) 06/13/21 06/13/21 06/14/21 16:41 21:00 07:41 WBC MCH MCHC RDW Lymph % (Auto) Lymph # (Auto) Baso # (Auto) Seg Neutrophils % Seg Neuts % (Manual) Lymphocytes % (Manual) Seg Neutrophils # Seg Neutrophils # Man Lymphocytes # (Manual) D-Dimer ABG pH POC ABG pO2 ABG pO2 ABG HCO3 ABG O2 Saturation ABG Base Excess ABG Oxyhemoglobin ABG Sodium ABG Chloride ABG Glucose Oxyhemoglobin Carboxyhemoglobin Sodium Potassium Chloride Carbon Dioxide BUN Creatinine Glucose POC Glucose 232 H 183 H 52 L Hemoglobin A1c Ferritin AST ALT Alkaline Phosphatase Lactate Dehydrogenase C-Reactive Protein Total Protein Albumin Arterial Blood Glucose Coronavirus (PCR) 06/14/21 06/14/21 06/14/21 11:44 17:44 21:44 WBC MCH MCHC RDW Lymph % (Auto) Lymph # (Auto) Baso # (Auto) Seg Neutrophils % Seg Neuts % (Manual) Lymphocytes % (Manual) Seg Neutrophils # Seg Neutrophils # Man Lymphocytes # (Manual) D-Dimer ABG pH POC ABG pO2 ABG pO2 ABG HCO3 ABG O2 Saturation ABG Base Excess ABG Oxyhemoglobin ABG Sodium ABG Chloride ABG Glucose Oxyhemoglobin Carboxyhemoglobin Sodium Potassium Chloride Carbon Dioxide BUN Creatinine Glucose POC Glucose 205 H 293 H 288 H Hemoglobin A1c Ferritin AST ALT Alkaline Phosphatase Lactate Dehydrogenase C-Reactive Protein Total Protein Albumin Arterial Blood Glucose Coronavirus (PCR) 06/15/21 06/15/21 06/15/21 08:00 08:00 11:40 WBC MCH 33 H MCHC 35 H RDW 20.3 H Lymph % (Auto) Lymph # (Auto) Baso # (Auto) Seg Neutrophils % Seg Neuts % (Manual) Lymphocytes % (Manual) Seg Neutrophils # Seg Neutrophils # Man Lymphocytes # (Manual) D-Dimer ABG pH POC ABG pO2 ABG pO2 ABG HCO3 ABG O2 Saturation ABG Base Excess ABG Oxyhemoglobin ABG Sodium ABG Chloride ABG Glucose Oxyhemoglobin Carboxyhemoglobin Sodium Potassium 3.2 L Chloride 95.3 L Carbon Dioxide 32 H BUN 23 H Creatinine 0.2 L Glucose 103 H POC Glucose 204 H Hemoglobin A1c Ferritin AST ALT Alkaline Phosphatase Lactate Dehydrogenase C-Reactive Protein Total Protein Albumin Arterial Blood Glucose Coronavirus (PCR) 06/15/21 06/15/21 06/16/21 16:17 22:00 11:43 WBC MCH MCHC RDW Lymph % (Auto) Lymph # (Auto) Baso # (Auto) Seg Neutrophils % Seg Neuts % (Manual) Lymphocytes % (Manual) Seg Neutrophils # Seg Neutrophils # Man Lymphocytes # (Manual) D-Dimer ABG pH POC ABG pO2 ABG pO2 ABG HCO3 ABG O2 Saturation ABG Base Excess ABG Oxyhemoglobin ABG Sodium ABG Chloride ABG Glucose Oxyhemoglobin Carboxyhemoglobin Sodium Potassium Chloride Carbon Dioxide BUN Creatinine Glucose POC Glucose 295 H 233 H 201 H Hemoglobin A1c Ferritin AST ALT Alkaline Phosphatase Lactate Dehydrogenase C-Reactive Protein Total Protein Albumin Arterial Blood Glucose Coronavirus (PCR) 06/16/21 06/16/21 06/17/21 17:21 21:27 07:12 WBC MCH MCHC RDW Lymph % (Auto) Lymph # (Auto) Baso # (Auto) Seg Neutrophils % Seg Neuts % (Manual) Lymphocytes % (Manual) Seg Neutrophils # Seg Neutrophils # Man Lymphocytes # (Manual) D-Dimer ABG pH POC ABG pO2 ABG pO2 ABG HCO3 ABG O2 Saturation ABG Base Excess ABG Oxyhemoglobin ABG Sodium ABG Chloride ABG Glucose Oxyhemoglobin Carboxyhemoglobin Sodium Potassium Chloride Carbon Dioxide BUN Creatinine Glucose POC Glucose 299 H 290 H 67 L Hemoglobin A1c Ferritin AST ALT Alkaline Phosphatase Lactate Dehydrogenase C-Reactive Protein Total Protein Albumin Arterial Blood Glucose Coronavirus (PCR) 06/17/21 06/17/21 06/17/21 11:53 17:02 22:25 WBC MCH MCHC RDW Lymph % (Auto) Lymph # (Auto) Baso # (Auto) Seg Neutrophils % Seg Neuts % (Manual) Lymphocytes % (Manual) Seg Neutrophils # Seg Neutrophils # Man Lymphocytes # (Manual) D-Dimer ABG pH POC ABG pO2 ABG pO2 ABG HCO3 ABG O2 Saturation ABG Base Excess ABG Oxyhemoglobin ABG Sodium ABG Chloride ABG Glucose Oxyhemoglobin Carboxyhemoglobin Sodium Potassium Chloride Carbon Dioxide BUN Creatinine Glucose POC Glucose 199 H 362 H 235 H Hemoglobin A1c Ferritin AST ALT Alkaline Phosphatase Lactate Dehydrogenase C-Reactive Protein Total Protein Albumin Arterial Blood Glucose Coronavirus (PCR) 06/18/21 06/18/21 06/18/21 08:00 11:48 16:40 WBC MCH MCHC RDW Lymph % (Auto) Lymph # (Auto) Baso # (Auto) Seg Neutrophils % Seg Neuts % (Manual) Lymphocytes % (Manual) Seg Neutrophils # Seg Neutrophils # Man Lymphocytes # (Manual) D-Dimer ABG pH POC ABG pO2 ABG pO2 ABG HCO3 ABG O2 Saturation ABG Base Excess ABG Oxyhemoglobin ABG Sodium ABG Chloride ABG Glucose Oxyhemoglobin Carboxyhemoglobin Sodium Potassium Chloride Carbon Dioxide BUN Creatinine Glucose POC Glucose 62 L 211 H 305 H Hemoglobin A1c Ferritin AST ALT Alkaline Phosphatase Lactate Dehydrogenase C-Reactive Protein Total Protein Albumin Arterial Blood Glucose Coronavirus (PCR) 06/18/21 06/19/21 06/19/21 21:26 07:27 11:32 WBC MCH MCHC RDW Lymph % (Auto) Lymph # (Auto) Baso # (Auto) Seg Neutrophils % Seg Neuts % (Manual) Lymphocytes % (Manual) Seg Neutrophils # Seg Neutrophils # Man Lymphocytes # (Manual) D-Dimer ABG pH POC ABG pO2 ABG pO2 ABG HCO3 ABG O2 Saturation ABG Base Excess ABG Oxyhemoglobin ABG Sodium ABG Chloride ABG Glucose Oxyhemoglobin Carboxyhemoglobin Sodium Potassium Chloride Carbon Dioxide BUN Creatinine Glucose POC Glucose 149 H 60 L 208 H Hemoglobin A1c Ferritin AST ALT Alkaline Phosphatase Lactate Dehydrogenase C-Reactive Protein Total Protein Albumin Arterial Blood Glucose Coronavirus (PCR) 06/19/21 06/19/21 06/20/21 16:06 22:28 07:48 WBC MCH MCHC RDW Lymph % (Auto) Lymph # (Auto) Baso # (Auto) Seg Neutrophils % Seg Neuts % (Manual) Lymphocytes % (Manual) Seg Neutrophils # Seg Neutrophils # Man Lymphocytes # (Manual) D-Dimer ABG pH POC ABG pO2 ABG pO2 ABG HCO3 ABG O2 Saturation ABG Base Excess ABG Oxyhemoglobin ABG Sodium ABG Chloride ABG Glucose Oxyhemoglobin Carboxyhemoglobin Sodium Potassium Chloride Carbon Dioxide BUN Creatinine Glucose POC Glucose 266 H 166 H 58 L Hemoglobin A1c Ferritin AST ALT Alkaline Phosphatase Lactate Dehydrogenase C-Reactive Protein Total Protein Albumin Arterial Blood Glucose Coronavirus (PCR) 06/20/21 06/20/21 09:09 11:04 WBC MCH MCHC RDW Lymph % (Auto) Lymph # (Auto) Baso # (Auto) Seg Neutrophils % Seg Neuts % (Manual) Lymphocytes % (Manual) Seg Neutrophils # Seg Neutrophils # Man Lymphocytes # (Manual) D-Dimer ABG pH POC ABG pO2 ABG pO2 ABG HCO3 ABG O2 Saturation ABG Base Excess ABG Oxyhemoglobin ABG Sodium ABG Chloride ABG Glucose Oxyhemoglobin Carboxyhemoglobin Sodium Potassium Chloride Carbon Dioxide BUN Creatinine Glucose POC Glucose 146 H 225 H Hemoglobin A1c Ferritin AST ALT Alkaline Phosphatase Lactate Dehydrogenase C-Reactive Protein Total Protein Albumin Arterial Blood Glucose Coronavirus (PCR)
--- NOTE | 2021-06-20 13:40 | Progress Note ---
Assessment and Plan 50-year-old female past medical history obesity, GERD, hyperlipidemia brought to the hospital due to shortness of breath, fevers, malaise, typical Covid symptoms for approximate 1 week prior to admission and was progressively worse since on set. She is found to have saturations of 86% on presentation. Afebrile since admission with a white count 7.5. Covid test was positive positive along with normal renal function and normal procalcitonin. Chest x-ray: Bilateral pneumonia. Patient initiated on Covid protocol, ID and pulmonary care following Assessment and plan: --Acute hypoxic resp failure due to covid19 -S/p BiPAP, now discontinued -Currently on high per nasal cannula -See RT notes for titration -Albuterol as needed -Pulmonary hygiene -Pulmonology following CTA chest ordered, patient could not tolerate --covid19 pna; sepsis; -zinc/vitC/D - continue steroid daily; wean as appropriate -Infectious disease consulted, -S/p Actemra and remdesivir -Trend temperature and WBC curve -Follow culture data --Oral candidiasis Nystatin solution ordered. -- hyponatremia -Trend BMP -Replace electrolytes as needed -Monitor intake and output -- coagulopathy of covid; on AC -Subcu heparin -Trend CBC -Transfuse for hemoglobin less than 7 -Bilateral lower extremity Doppler ultrasounds negative for DVT ; no CTA or VQ scan to rule out PE -- hyperglycemia; obesity -glargine HS -SSI AC/HS -Avoid hypoglycemia -- risk for protein gisella malnutrition given inc metabolic demand with resp insufficiency -TPN earlier in hospital admission due to BiPAP however now patient is tolerating p.o. -Patient on a GI soft diet with aspiration precautions -Nutrition following -Bowel regimen: Colace, senna, MiraLAX -PPI --Anxiety Likely due to severe hypoxia -Follows commands and RAY -PRN pain and anxiety meds -Patient is [place]-speaking but understands Italian --viral conjunctivitis right eye: -Right eye- s/p 5 d course of cipro drops. suspect viral conjunctivitis. lubricating eye drops. supportive management. --Septic shock -S/p pressors now discontinued -MAP goal 65 -Pressure monitor per protocol --DVT prophylaxis, per hospital protocol Hospital course to date: 04/17: Patient seen and examined, still uncomfortable with Hypoxic respiratory failure and on oxygen, will continue to steroids therapy, start patient on Remdesivir, ID consulted, Pulmonary consult placed. 04/18: Patient seen and examined, she is currently being changed to High flow NC due to worsening HYPOXIA, will transfer to IMCU, Pulmonary and ID following. Will also give a dose of Lasix today. Monitor Inflammatory markers. 04/19: Patient seen and examined still on high flow due to hypoxia. Appears a bit more comfortable today than yesterday. Cough has decreased in frequency. We will continue high dose Dexameathasone to complete 10 days. continue on Remdesivir 200 mg IV q day x 1 followed by 100 mg IV q day x 4 days -Obtain q48-72h inflammatory markers - ferritin, Ddimer, CRP, LDH Will also give lasix daily for the next 3 days and monitor renal function. Family updated. Continue prone positioning as tolerated 04/20: Patient has some desaturation episodes yesterday was placed on BiPAP. Discussed with ICU team for bed availability for patient to be transferred up. Continue prone position as tolerated. 04/21: Patient remains with profound hypoxia secondary to COVID pneumonia. -Continue steroids -Continue remedesir -S/P Actmera 04/22: Patient remains on steroids and remdesivir. ABG shows persistent hypoxia. We will continue current management additional trial of Lasix for the next few days to see if any improvement. Monitor inflammatory markers as needed. Prognosis is guarded remains on high flow 04/23; patient was treated with remdesivir and Actemra. Continue steroid. Patient's prognosis is guarded. 04/24; patient is on steroid. Patient is currently on BiPAP. Prognosis is guarded. Pulmonary is following. Patient was given Lasix and Ativan. 04/25; continue steroid. Patient was on 40 L of high flow oxygen with saturation was 88%. Pulmonary is following. Prognosis is guarded. Patient was given lasix and ativan. 04/26; patient is on BiPAP and Precedex. Prognosis is guarded. 04/27; patient is on BiPAP and Precedex. Patient will finish steroid today and w ill start on Solu-Medrol tomorrow. Prognosis is guarded. Blood pressure is better today. Hold Lasix. 04/28 patient is on 100 Fio2 via BIPAP. moderately dyspneic, pulmonary note reviewed, lab results reviewed 04/29 no acute events- see systems review above 04/30 no acute events overnight - on airvo today- TPN started -see systems review above 05-01 no acute events overnight- tolerating airvo- see systems review above 05-02 no acute events overnight; tolerating airvo this AM- see systems review above 05/03: Patient has shown remarkable improvement, weaned down to 3 L and satting 95%. Will attempt to walk test today in anticipation for discharge tomorrow. Discussed with PT team to walk the patient today also. 05/04: Patient appears to have had a decline he was down to 3 L satting 95% with anticipation for discharge today but desatted down to 85% on room air and only 88% on 5 L he is now back at 8 L. I encourage incentive spirometer. While he is on Xarelto and has completed the severe steroids which was subsequently changed to Solu-Medrol I will go ahead and order a CTA to make sure that there is not a failure of Xarelto. We will continue to wean as tolerated discussed with nursing staff at bedside. 05/05/21 Patient is on 40 L of oxygen with 80% FiO2. Patient is encouraged to turn to the side more frequently. Patient is denied any shortness of breath and coughing. No other complaints. Follow the CT scan of the chest. Status post remdesivir and Actemra.Solu-Medrol 40 mg IV every 8 hours. Continue current management. Pulmonary follow-up. 05/06: Patient remains on high flow nasal cannula but states that she feels slightly better with the help of translation from her cousin Aspen. Patient is still awaiting a bed on the floor. Patient diet is being tolerated now so we will stop TPN will be stopped tonight. 05/07/2021: Patient remains on 40 L/min oxygen at 90% FiO2. Attempt made for CTA chest to rule out pulmonary embolism however patient desatted while at CT. Study was aborted, will reattempt again tomorrow. will follow along with renetta bertrand. Discussed/updated patient and patient's daughter over phone regarding any active clinical issues. Patient only complaint is oral pain from oral candidiasis noted on exam. Nystatin oral solution ordered. Daughter also voiced concern over patient eye drops which she stated that patient needed to restart from home. However she did not remember name of drops. advised daughter to call our hospital with drop name and dosing and we will restart. 05/08/2021: Started anticoagulation with Lovenox yesterday. Awaiting CTA chest completion. Will attempt to de-escalate oxygen as patient tolerates 05/09/2021: Continues to have high O2 requirements. CTA chest aborted due to patient not being able to tolerate transport to and from scanner. Will follow pulmonology recommendations 05/10/2021: Steroids increased yesterday to 125 mg every 8 hour. Continuing full dose anticoagulation. Respiratory status still remains challenging as it is difficult to wean patient off of hifnc. Minimal improvement compared to last few days. Plan to prone patient today. Otherwise: Some improvement in eye symptoms compared to yesterday. Will order more lubricating eye drops 05/11/2021: Still requires high flow nasal cannula, FiO2 de-escalated to 85%.. Encourage continued proning, patient care team aware. Continue with steroids, anticoagulation, antibiotics. 05/12/2021: High flow nasal cannula remains at flow rate 35 L/min and FiO2 of 85%. Patient appears more comfortable today. Started insulin regimen due to hyperglycemia likely multifactorial in the setting of underlying diabetes and high-dose steroids. Continue to encourage patient to prone. Discussed with pulmonology regarding patient underlying anxiety. We both agreed that low-dose BuSpar might be beneficial for the patient. 05/13/2020: hypoxic resp distress overnight. cpap ordered. Current settings on encounter 30/04 at 100% FIO2. Advised care (RN, RT, PT) team to continue to aggressively work with patient as far as proning. Patient can sit at side of bed and rest on bedside tray w/ pillow in "Rodin's thinker pose". continue high dose steroids, PRN ativan for anxiety, Buspar noted in pulm recs. 05/14/21: Patient remains on 100% O2 with high flow. Follow inflammatory markers, wean FiO2 as tolerated, guarded prognosis 05/15: Patient on 40 L high flow O2 today-requiring nonrebreather intermittently, continue to follow inflammatory markers and wean off O2 as tolerated, guarded prognosis. 05/16:-Remains on high flow O2 along with nonrebreather, continue to follow inflammatory markers and wean off O2 as tolerated, pulmonary and ID following. Guarded prognosis, patient requiring higher concentration of O2 and unable to wean off. 05/17: Persistently recurring higher concentration O2. Patient on both high flow oxygen and nonrebreather. Poor prognosis, continue to follow inflammatory markers. ID and pulmonary care following. Updated family. 05/18: Patient remains on nonrebreather and high flow O2, Prone if possible. We an FiO2 for sats >88%. Prognosis is very very guarded. Follow inflammatory markers. 05/19: Wean FiO2 for sats >88%. Patient remains on nonrebreather and high flow O2, Prone if possible. Follow inflammatory markers. Prognosis is very very guarded. 05/20: Patient remains on high flow O2 along with nonrebreather. Guarded prognosis. Wean off O2 as tolerated. Pulmonary and ID following 05/21: Clinically very poor prognosis. Patient continuously requiring high flow O2 along with nonrebreather. Updated daughter with all clinical details. Follow BMP, follow inflammatory markers. Wean off O2 as tolerated. 05/22: Remains on nonrebreather and high flow O2. Continue to monitor clinically, guarded prognosis. Continue to follow inflammatory markers. ID and pulmonary also following. 06/11/21: Remains on high flow O2, poor prognosis 06/12/2021: On high flow nasal cannula oxygen, Steroids will be tapered. Prone position 06/13/21: Changed to prednisone 60 daily [id number]. Prone if able and wean for sats >88% 06/14/21: Continue oral steroid therapy. Weaning of steroids to continue. Proning as tolerated 06/15: Remains on 30 L high flow O2, continue to wean off as tolerated, patient on steroid, guarded prognosis, call patient family for update but the phone number in the chart looks like not in service. 06/16; Continue supportive care wean off O2 as tolerated, patient remains on 30 L high flow O2 06/17: Remains on 30 L high flow O2, continue empiric steroid, guarded prog nosis, unable to wean off from high flow O2. Needs LTAC but patient is unfunded 06/18: Continue empiric steroid, Remains on high flow O2, unable to wean off from high flow O2. Needs LTAC but patient is unfunded. Guarded prognosis 06/19: Patient remains on high flow O2, unable to wean off, guarded prognosis 06/20: guarded prognosis, Remains on high flow O2, continue to wean off as tolerated Subjective Date of service: 06/20/21 Principal diagnosis: Covid-19 Interval history: Patient seen and examined. Medical records and medication list reviewed. No acute event overnight noted by the RN. Patient remains on high flow O2. Patient is tolerating diet. Discussed plan of care at bedside with patient. Objective - Exam Narrative Exam: Limited physical exam due to COVID-19 pandemic to minimize transmission of the disease and to preserve PPE. Vital reviewed and stable. GENERAL: well-developed well-nourished lying on bed appeared to be in no discomfort. HEENT: Normocephalic. Atraumatic. Right eye congestion NECK: Supple. CHEST/LUNGS: breathing on high flow O2 HEART/CARDIOVASCULAR: Heart rate stable on telemetry ABDOMEN: Visibly not distended SKIN: There is no rash NEURO: No focal motor deficit. Follows command. MUSCULOSKELETAL: No joint effusion EXTRIMITY: No swelling, no cyanosis or clubbing. PSYCH: Cooperative. - Constitutional Vitals: Vital Signs - 12hr 06/20/21 06/20/21 06/20/21 02:00 05:53 09:49 Temperature 97.8 F Pulse Rate 80 Respiratory 18 Rate Blood Pressure 106/70 O2 Sat by Pulse 96 96 96 Oximetry 06/20/21 11:53 Temperature Pulse Rate Respiratory Rate Blood Pressure O2 Sat by Pulse 92 Oximetry - Labs CBC & Chem 7: 06/15/21 08:00 06/15/21 08:00 Labs: Abnormal lab results 06/19/21 06/19/21 06/20/21 Range/Units 16:06 22:28 07:48 POC Glucose 266 H 166 H 58 L (70-105) mg/dL 06/20/21 06/20/21 Range/Units 09:09 11:04 POC Glucose 146 H 225 H (70-105) mg/dL
[2021-06-20] MEDS: ENOXAPARIN 40 MG/0.4 ML INJ SUB-Q SCH (22:34)
[2021-06-20] MEDS: ZOLPIDEM 5 MG TAB PO PRN (22:35)
[2021-06-20] MEDS: SENNOSIDES 8.6 MG TAB PO SCH (22:35)
[2021-06-21 07:12] LABS: Basophils % (Auto) 0.5 % (0.0-1.8); Eosinophils # (Auto) 0.1 K/mm3 (0.0-0.4); Eosinophils % (Auto) 0.7 % (0.0-4.3); Hematocrit 40.1 % (30.3-42.9); Hemoglobin 13.5 gm/dl (10.1-14.3); Lymphocytes # (Auto) 2.8 K/mm3 (1.2-5.4); Lymphocytes % (Auto) 30.3 % (13.4-35.0); Mean Corpuscular HGB Conc 34 % (30-34); Mean Corpuscular Volume 94 fl (79-97); Monocytes # (Auto) 0.6 K/mm3 (0.0-0.8); Monocytes % (Auto) 6.5 % (0.0-7.3); Platelet Count 285 K/mm3 (140-440); Red Blood Count 4.26 M/mm3 (3.65-5.03)
[2021-06-21 07:29] LABS: Blood Urea Nitrogen 23 mg/dL (7-17); Calcium 9.3 mg/dL (8.4-10.2); Hemolysis Index 10
[2021-06-21 07:33] LABS: BUN/Creatinine Ratio 115
[2021-06-21] MEDS ORDERED: POTASSIUM CHLORIDE ER 20 MEQ TAB PO SCH (08:00)
[2021-06-21] MEDS: INSULIN LISPRO 100 UNIT/ML SUB-Q SCH ×4 (08:14→22:17)
[2021-06-21] MEDS: DOCUSATE SODIUM 100 MG CAP PO SCH ×2 (09:38→22:19)
[2021-06-21] MEDS: ZINC SULFATE 220 MG CAP PO SCH ×2 (09:38→22:21)
[2021-06-21] MEDS: ASCORBIC ACID 500 MG TAB PO SCH (09:38)
[2021-06-21] MEDS: CHOLECALCIFEROL (VIT D3) 1000 UNIT (25 mcg) TAB PO SCH (09:38)
[2021-06-21] MEDS: predniSONE 20 MG TAB PO SCH (09:38)
[2021-06-21] MEDS: FUROSEMIDE 40 MG/4 ML INJ IV SCH (09:38)
[2021-06-21] MEDS: INSULIN GLARGINE 100 UNITS/ML SUB-Q SCH (09:41)
[2021-06-21] MEDS ORDERED: POTASSIUM CHLORIDE ER 20 MEQ TAB PO NR (11:15)
--- NOTE | 2021-06-21 12:09 | Progress Note ---
Assessment and Plan 50-year-old female past medical history obesity, GERD, hyperlipidemia brought to the hospital due to shortness of breath, fevers, malaise, typical Covid symptoms for approximate 1 week prior to admission and was progressively worse since on set. She is found to have saturations of 86% on presentation. Afebrile since admission with a white count 7.5. Covid test was positive positive along with normal renal function and normal procalcitonin. Chest x-ray: Bilateral pneumonia. Patient initiated on Covid protocol, ID and pulmonary care following Assessment and plan: --Acute hypoxic resp failure due to covid19 -S/p BiPAP, now discontinued -Currently on high flow o2 per nasal cannula -See RT notes for titration -Albuterol as needed -Pulmonary hygiene -Pulmonology following CTA chest neg for PE --covid19 pna with sepsis; -zinc/vitC/D - continue steroid daily; wean as appropriate -Infectious disease consulted, -S/p Actemra and remdesivir -Trend temperature and WBC curve --Oral candidiasis Nystatin solution ordered. -- hyponatremia, hypokalemia -Trend BMP -Replace electrolytes as needed -Monitor intake and output -- coagulopathy of covid; on AC -Subcu heparin -Trend CBC -Transfuse for hemoglobin less than 7 -Bilateral lower extremity Doppler ultrasounds negative for DVT ; no CTA or VQ s can to rule out PE -- DM type 2/hyperglycemia; obesity -A1c 8.5 -lentus, SSI AC/HS -Avoid hypoglycemia -- Risk for protein gisella malnutrition given inc metabolic demand with resp insufficiency -TPN earlier in hospital admission due to BiPAP however now patient is tolerating p.o. -Patient on a GI soft diet with aspiration precautions -Nutrition following -Bowel regimen: Colace, senna, MiraLAX -PPI --Anxiety Likely due to severe hypoxia -Follows commands and RAY -PRN pain and anxiety meds -Patient is Irish-speaking but understands Guatemalan --viral conjunctivitis right eye: -Right eye- s/p 5 d course of cipro drops. suspect viral conjunctivitis. lubricating eye drops. supportive management. --Septic shock -S/p pressors now discontinued -MAP goal 65 -Pressure monitor per protocol --DVT prophylaxis, per hospital protocol Hospital course to date: 04/17: Patient seen and examined, still uncomfortable with Hypoxic respiratory failure and on oxygen, will continue to steroids therapy, start patient on Remdesivir, ID consulted, Pulmonary consult placed. 04/18: Patient seen and examined, she is currently being changed to High flow NC due to worsening HYPOXIA, will transfer to IMCU, Pulmonary and ID following. Will also give a dose of Lasix today. Monitor Inflammatory markers. 04/19: Patient seen and examined still on high flow due to hypoxia. Appears a bit more comfortable today than yesterday. Cough has decreased in frequency. We will continue high dose Dexameathasone to complete 10 days. continue on Remdesivir 200 mg IV q day x 1 followed by 100 mg IV q day x 4 days -Obtain q48-72h inflammatory markers - ferritin, Ddimer, CRP, LDH Will also give lasix daily for the next 3 days and monitor renal function. Family updated. Continue prone positioning as tolerated 04/20: Patient has some desaturation episodes yesterday was placed on BiPAP. Disc ussed with ICU team for bed availability for patient to be transferred up. Continue prone position as tolerated. 04/21: Patient remains with profound hypoxia secondary to COVID pneumonia. -Continue steroids -Continue remedesir -S/P Actmera 04/22: Patient remains on steroids and remdesivir. ABG shows persistent hypoxia. We will continue current management additional trial of Lasix for the next few days to see if any improvement. Monitor inflammatory markers as needed. Prognosis is guarded remains on high flow 04/23; patient was treated with remdesivir and Actemra. Continue steroid. Patient's prognosis is guarded. 04/24; patient is on steroid. Patient is currently on BiPAP. Prognosis is gu arded. Pulmonary is following. Patient was given Lasix and Ativan. 04/25; continue steroid. Patient was on 40 L of high flow oxygen with saturation was 88%. Pulmonary is following. Prognosis is guarded. Patient was given lasix and ativan. 04/26; patient is on BiPAP and Precedex. Prognosis is guarded. 04/27; patient is on BiPAP and Precedex. Patient will finish steroid today and will start on Solu-Medrol tomorrow. Prognosis is guarded. Blood pressure is better today. Hold Lasix. 04/28 patient is on 100 Fio2 via BIPAP. moderately dyspneic, pulmonary note reviewed, lab results reviewed 04/29 no acute events- see systems review above 04/30 no acute events overnight - on airvo today- TPN started -see systems review above - no acute events overnight- tolerating airvo- see systems review above 05-02 no acute events overnight; tolerating airvo this AM- see systems review above 05/03: Patient has shown remarkable improvement, weaned down to 3 L and satting 95%. Will attempt to walk test today in anticipation for discharge tomorrow. Discussed with PT team to walk the patient today also. 05/04: Patient appears to have had a decline he was down to 3 L satting 95% with anticipation for discharge today but desatted down to 85% on room air and only 88% on 5 L he is now back at 8 L. I encourage incentive spirometer. While he is on Xarelto and has completed the severe steroids which was subsequently changed to Solu-Medrol I will go ahead and order a CTA to make sure that there is not a failure of Xarelto. We will continue to wean as tolerated discussed with nursing staff at bedside. 05/05/21 Patient is on 40 L of oxygen with 80% FiO2. Patient is encouraged to turn to the side more frequently. Patient is denied any shortness of breath and coughing. No other complaints. Follow the CT scan of the chest. Status post remdesivir and Actemra.Solu-Medrol 40 mg IV every 8 hours. Continue current management. Pulmonary follow-up. 05/06: Patient remains on high flow nasal cannula but states that she feels slightly better with the help of translation from her cousin Aspen. Patient is still awaiting a bed on the floor. Patient diet is being tolerated now so we will stop TPN will be stopped tonight. 05/07/2021: Patient remains on 40 L/min oxygen at 90% FiO2. Attempt made for CTA chest to rule out pulmonary embolism however patient desatted while at CT. Study was aborted, will reattempt again tomorrow. will follow along with renetta bertrand. Discussed/updated patient and patient's daughter over phone regarding any active clinical issues. Patient only complaint is oral pain from oral candidiasis noted on exam. Nystatin oral solution ordered. Daughter also voiced concern over patient eye drops which she stated that patient needed to restart from home. However she did not remember name of drops. advised daughter to call our hospital with drop name and dosing and we will restart. 05/08/2021: Started anticoagulation with Lovenox yesterday. Awaiting CTA chest completion. Will attempt to de-escalate oxygen as patient tolerates 05/09/2021: Continues to have high O2 requirements. CTA chest aborted due to patient not being able to tolerate transport to and from scanner. Will follow pulmonology recommendations 05/10/2021: Steroids increased yesterday to 125 mg every 8 hour. Continuing full dose anticoagulation. Respiratory status still remains challenging as it is difficult to wean patient off of hifnc. Minimal improvement compared to last few days. Plan to prone patient today. Otherwise: Some improvement in eye symptoms compared to yesterday. Will order more lubricating eye drops 05/11/2021: Still requires high flow nasal cannula, FiO2 de-escalated to 85%.. Encourage continued proning, patient care team aware. Continue with steroids, anticoagulation, antibiotics. 05/12/2021: High flow nasal cannula remains at flow rate 35 L/min and FiO2 of 85%. Patient appears more comfortable today. Started insulin regimen due to hyperglycemia likely multifactorial in the setting of underlying diabetes and high-dose steroids. Continue to encourage patient to prone. Discussed with pulmonology regarding patient underlying anxiety. We both agreed that low-dose BuSpar might be beneficial for the patient. 05/13/2020: hypoxic resp distress overnight. cpap ordered. Current settings on encounter 30/04 at 100% FIO2. Advised care (RN, RT, PT) team to continue to aggressively work with patient as far as proning. Patient can sit at side of bed and rest on bedside tray w/ pillow in "Rodin's thinker pose". continue high dose steroids, PRN ativan for anxiety, Buspar noted in pulm recs. 05/14/21: Patient remains on 100% O2 with high flow. Follow inflammatory markers, wean FiO2 as tolerated, guarded prognosis 05/15: Patient on 40 L high flow O2 today-requiring nonrebreather intermittently, continue to follow inflammatory markers and wean off O2 as tolerated, guarded prognosis. 05/16:-Remains on high flow O2 along with nonrebreather, continue to follow inflammatory markers and wean off O2 as tolerated, pulmonary and ID following. Guarded prognosis, patient requiring higher concentration of O2 and unable to wean off. 05/17: Persistently recurring higher concentration O2. Patient on both high flow oxygen and nonrebreather. Poor prognosis, continue to follow inflammatory markers. ID and pulmonary care following. Updated family. 05/18: Patient remains on nonrebreather and high flow O2, Prone if possible. Wean FiO2 for sats >88%. Prognosis is very very guarded. Follow inflammatory markers. 05/19: Wean FiO2 for sats >88%. Patient remains on nonrebreather and high flow O2, Prone if possible. Follow inflammatory markers. Prognosis is very very guarded. 05/20: Patient remains on high flow O2 along with nonrebreather. Guarded prognosis. Wean off O2 as tolerated. Pulmonary and ID following 05/21: Clinically very poor prognosis. Patient continuously requiring high flow O2 along with nonrebreather. Updated daughter with all clinical details. Follow BMP, follow inflammatory markers. Wean off O2 as tolerated. 05/22: Remains on nonrebreather and high flow O2. Continue to monitor clinically, guarded prognosis. Continue to follow inflammatory markers. ID and pulmonary also following. 06/11/21: Remains on high flow O2, poor prognosis 06/12/2021: On high flow nasal cannula oxygen, Steroids will be tapered. Prone position 06/13/21: Changed to prednisone 60 daily [id number]/1/21. Prone if able and wean for sats >88% 06/14/21: Continue oral steroid therapy. Weaning of steroids to continue. Proning as tolerated 06/15: Remains on 30 L high flow O2, continue to wean off as tolerated, patient on steroid, guarded prognosis, call patient family for update but the phone number in the chart looks like not in service. 06/16; Continue supportive care wean off O2 as tolerated, patient remains on 30 L high flow O2 06/17: Remains on 30 L high flow O2, continue empiric steroid, guarded prognosis, unable to wean off from high flow O2. Needs LTAC but patient is unfunded 06/18: Continue empiric steroid, Remains on high flow O2, unable to wean off from high flow O2. Needs LTAC but patient is unfunded. Guarded prognosis 06/19: Patient remains on high flow O2, unable to wean off, guarded prognosis 06/20: guarded prognosis, Remains on high flow O2, continue to wean off as tolerated 06/21: hypoglycemic this am, k level also low, will adjust long-acting insulin dose, replete potassium, repeat BMP tomorrow. Continue to wean off O2 as tolerated, guarded prognosis. Subjective Date of service: 06/21/21 Principal diagnosis: Covid-19 Interval history: Patient seen and examined. Medical records and medication list reviewed. No acute event overnight noted by the RN. Patient remains on high flow O2. Patient is tolerating diet. Hypoglycemic and hypokalemic this morning Discussed plan of care at bedside with patient. Objective - Exam Narrative Exam: Limited physical exam due to COVID-19 pandemic to minimize transmission of the disease and to preserve PPE. Vital reviewed and stable. GENERAL: well-developed well-nourished lying on bed appeared to be in no discomfort. HEENT: Normocephalic. Atraumatic. Right eye congestion NECK: Supple. CHEST/LUNGS: breathing on high flow O2 HEART/CARDIOVASCULAR: Heart rate stable on telemetry ABDOMEN: Visibly not distended SKIN: There is no rash NEURO: No focal motor deficit. Follows command. MUSCULOSKELETAL: No joint effusion EXTRIMITY: No swelling, no cyanosis or clubbing. PSYCH: Cooperative. - Constitutional Vitals: Vital Signs - 12hr 06/21/21 06/21/21 06/21/21 02:00 06:07 08:50 Temperature 98.0 F Pulse Rate 89 Respiratory 22 Rate Blood Pressure 112/68 O2 Sat by Pulse 94 90 93 Oximetry 06/21/21 11:06 Temperature Pulse Rate Respiratory Rate Blood Pressure O2 Sat by Pulse 91 Oximetry - Labs CBC & Chem 7: 06/21/21 06:45 06/21/21 06:45 Labs: Abnormal lab results 06/20/21 06/20/21 06/21/21 Range/Units 16:01 20:46 06:45 RDW 20.0 H (13.2-15.2) % Potassium (3.6-5.0) mmol/L Chloride (98-107) mmol/L Carbon Dioxide (22-30) mmol/L BUN (7-17) mg/dL Creatinine (0.6-1.2) mg/dL Glucose (65-100) mg/dL POC Glucose 330 H 215 H (70-105) mg/dL 06/21/21 06/21/21 06/21/21 Range/Units 06:45 07:38 09:06 RDW (13.2-15.2) % Potassium 2.9 L* (3.6-5.0) mmol/L Chloride 95.0 L (98-107) mmol/L Carbon Dioxide 31 H (22-30) mmol/L BUN 23 H (7-17) mg/dL Creatinine 0.2 L (0.6-1.2) mg/dL Glucose 45 L (65-100) mg/dL POC Glucose 50 L 196 H (70-105) mg/dL
[2021-06-21] MEDS: ENOXAPARIN 40 MG/0.4 ML INJ SUB-Q SCH (22:19)
[2021-06-21] MEDS: SENNOSIDES 8.6 MG TAB PO SCH (22:20)
[2021-06-21] MEDS: ZOLPIDEM 5 MG TAB PO PRN (22:29)
[2021-06-21] MEDS: clonazePAM 0.5 MG TAB PO PRN (22:33)
[2021-06-22 07:00] LABS: Blood Urea Nitrogen 20 mg/dL (7-17); Hemolysis Index 6
[2021-06-22 07:02] LABS: BUN/Creatinine Ratio 100
[2021-06-22] MEDS: INSULIN LISPRO 100 UNIT/ML SUB-Q SCH ×4 (08:13→22:06)
[2021-06-22] MEDS: INSULIN GLARGINE 100 UNITS/ML SUB-Q SCH (09:22)
[2021-06-22] MEDS: DOCUSATE SODIUM 100 MG CAP PO SCH ×2 (09:22→22:04)
[2021-06-22] MEDS: predniSONE 20 MG TAB PO SCH (09:22)
[2021-06-22] MEDS: FUROSEMIDE 40 MG/4 ML INJ IV SCH (09:23)
[2021-06-22] MEDS: ASCORBIC ACID 500 MG TAB PO SCH (09:23)
[2021-06-22] MEDS: ZINC SULFATE 220 MG CAP PO SCH ×2 (09:24→22:04)
[2021-06-22] MEDS: CHOLECALCIFEROL (VIT D3) 1000 UNIT (25 mcg) TAB PO SCH (09:24)
--- NOTE | 2021-06-22 09:56 | Progress Note ---
Assessment and Plan - Patient Problems (1) Acute hypoxemic respiratory failure Current Visit: Yes Status: Acute Plan to address problem: Supplemental oxygen, pulse oximetry, nebulizer therapy, proposition while in bed, noninvasive positive pressure ventilation as clinically indicated. If patient is unable to maintain pulse oximetry will consider high flow supplemental oxygen. (2) Pneumonia Current Visit: Yes Status: Acute Qualifiers: Aspiration pneumonia type: unspecified Laterality: unspecified laterality Lung location: unspecified part of lung Plan to address problem: Pneumonia protocol: Chest x-ray, CBC, CMP, IV antibiotic therapy, blood culture. (3) Obesity hypoventilation syndrome Current Visit: Yes Status: Acute Plan to address problem: Balanced diet, increase physical activity discharge, outpatient pulmonary follow-up for sleep study. (4) Coronavirus infection Current Visit: Yes Status: Acute Plan to address problem: Supportive care, infectious disease service consulted. Continue medical management. (5) DVT prophylaxis Current Visit: Yes Status: Acute Plan to address problem: SCD to bilateral lower extremities while in bed, prophylactic anticoagulation History Interval history: 50 YO Female with Acute/Chronic respiratory failure secondary to coronavirus infection complicated by sepsis. Patient continues require high flow supplemental oxygen support. Continue current therapy, patient resting comfortably. Patient denies pain. No reported nursing events overnight. Hospitalist Physical - Constitutional Vitals: Temp Pulse Resp BP Pulse Ox 97.9 F 80 16 112/67 97 06/22/21 04:08 06/22/21 04:08 06/22/21 04:08 06/22/21 04:08 06/22/21 08:00 General appearance: Present: mild distress, well-nourished - EENT Eyes: Present: PERRL, EOM intact - Neck Neck: Present: supple - Respiratory Respiratory effort: labored Respiratory: bilateral: diminished, rhonchi - Cardiovascular Rhythm: regular Heart Sounds: Present: S1 & S2 - Extremities Extremities: no ischemia Peripheral Pulses: within normal limits - Abdominal General gastrointestinal: soft, non-tender, non-distended - Integumentary Integumentary: Present: clear, dry - Psychiatric Psychiatric: appropriate mood/affect, cooperative - Neurologic Neurologic: CNII-XII intact Results - Labs CBC & Chem 7: 06/21/21 06:45 06/22/21 06:25 Labs: Laboratory Last Values WBC 9.2 K/mm3 (4.5-11.0) 06/21/21 06:45 RBC 4.26 M/mm3 (3.65-5.03) 06/21/21 06:45 Hgb 13.5 gm/dl (10.1-14.3) 06/21/21 06:45 Hct 40.1 % (30.3-42.9) 06/21/21 06:45 MCV 94 fl (79-97) 06/21/21 06:45 MCH 32 pg (28-32) 06/21/21 06:45 MCHC 34 % (30-34) 06/21/21 06:45 RDW 20.0 % (13.2-15.2) H 06/21/21 06:45 Plt Count 285 K/mm3 (140-440) 06/21/21 06:45 Lymph % (Auto) 30.3 % (13.4-35.0) 06/21/21 06:45 [place]ard % (Auto) 6.5 % (0.0-7.3) 06/21/21 06:45 Eos % (Auto) 0.7 % (0.0-4.3) 06/21/21 06:45 Baso % (Auto) 0.5 % (0.0-1.8) 06/21/21 06:45 Lymph # (Auto) 2.8 K/mm3 (1.2-5.4) 06/21/21 06:45 [place]ard # (Auto) 0.6 K/mm3 (0.0-0.8) 06/21/21 06:45 Eos # (Auto) 0.1 K/mm3 (0.0-0.4) 06/21/21 06:45 Baso # (Auto) 0.0 K/mm3 (0.0-0.1) 06/21/21 06:45 Add Manual Diff Complete 05/12/21 04:05 Total Counted 100 05/12/21 04:05 Seg Neutrophils % 62.0 % (40.0-70.0) 06/21/21 06:45 Seg Neuts % (Manual) 94.0 % (40.0-70.0) H 05/12/21 04:05 Band Neutrophils % 1.0 % 05/12/21 04:05 Lymphocytes % (Manual) 4.0 % (13.4-35.0) L 05/12/21 04:05 Monocytes % (Manual) 1.0 % (0.0-7.3) 05/12/21 04:05 Nucleated RBC % Not Reportable 05/12/21 04:05 Seg Neutrophils # 5.7 K/mm3 (1.8-7.7) 06/21/21 06:45 Seg Neutrophils # Man 6.4 K/mm3 (1.8-7.7) 05/12/21 04:05 Band Neutrophils # 0.1 K/mm3 05/12/21 04:05 Lymphocytes # (Manual) 0.3 K/mm3 (1.2-5.4) L 05/12/21 04:05 Abs React Lymphs (Man) 0.0 K/mm3 05/12/21 04:05 Monocytes # (Manual) 0.1 K/mm3 (0.0-0.8) 05/12/21 04:05 Eosinophils # (Manual) 0.0 K/mm3 (0.0-0.4) 05/12/21 04:05 Basophils # (Manual) 0.0 K/mm3 (0.0-0.1) 05/12/21 04:05 Metamyelocytes # 0.0 K/mm3 05/12/21 04:05 Myelocytes # 0.0 K/mm3 05/12/21 04:05 Promyelocytes # 0.0 K/mm3 05/12/21 04:05 Blast Cells # 0.0 K/mm3 05/12/21 04:05 WBC Morphology Not Reportable 05/12/21 04:05 Hypersegmented Neuts Not Reportable 05/12/21 04:05 Hyposegmented Neuts Not Reportable 05/12/21 04:05 Hypogranular Neuts Not Reportable 05/12/21 04:05 Smudge Cells Not Reportable 05/12/21 04:05 Toxic Granulation Not Reportable 05/12/21 04:05 Toxic Vacuolation Not Reportable 05/12/21 04:05 Dohle Bodies Not Reportable 05/12/21 04:05 Pelger-Huet Anomaly Not Reportable 05/12/21 04:05 Janelle Rods Not Reportable 05/12/21 04:05 Platelet Estimate Consistent w auto 05/12/21 04:05 Clumped Platelets Not Reportable 05/12/21 04:05 Plt Clumps, EDTA Not Reportable 05/12/21 04:05 Large Platelets Not Reportable 05/12/21 04:05 Giant Platelets Not Reportable 05/12/21 04:05 Platelet Satelliting Not Reportable 05/12/21 04:05 Plt Morphology Comment Not Reportable 05/12/21 04:05 RBC Morphology Normal 05/12/21 04:05 Dimorphic RBCs Not Reportable 05/12/21 04:05 Polychromasia Not Reportable 05/12/21 04:05 Hypochromasia Not Reportable 05/12/21 04:05 Poikilocytosis Not Reportable 05/12/21 04:05 Anisocytosis Not Reportable 05/12/21 04:05 Microcytosis Not Reportable 05/12/21 04:05 Macrocytosis Not Reportable 05/12/21 04:05 Spherocytes Not Reportable 05/12/21 04:05 Pappenheimer Bodies Not Reportable 05/12/21 04:05 Sickle Cells Not Reportable 05/12/21 04:05 Target Cells Not Reportable 05/12/21 04:05 Tear Drop Cells Not Reportable 05/12/21 04:05 Ovalocytes Not Reportable 05/12/21 04:05 Helmet Cells Not Reportable 05/12/21 04:05 [place] Bodies Not Reportable 05/12/21 04:05 [place] Rings Not Reportable 05/12/21 04:05 Crow Cells Not Reportable 05/12/21 04:05 Bite Cells Not Reportable 05/12/21 04:05 Crenated Cell Not Reportable 05/12/21 04:05 Elliptocytes Not Reportable 05/12/21 04:05 Acanthocytes (Spur) Not Reportable 05/12/21 04:05 Rouleaux Not Reportable 05/12/21 04:05 Hemoglobin C Crystals Not Reportable 05/12/21 04:05 Schistocytes Not Reportable 05/12/21 04:05 Malaria parasites Not Reportable 05/12/21 04:05 Justin Bodies Not Reportable 05/12/21 04:05 Hem Pathologist Commnt No 05/12/21 04:05 D-Dimer 488.49 ng/mlDDU (0-234) H 06/05/21 05:26 ABG pH 7.403 pH Units (7.350-7.450) 05/14/21 02:23 POC ABG pCO2 45.4 mmHg (32.0-48.0) 05/03/21 04:49 ABG pCO2 50.2 mm Hg 05/14/21 02:23 POC ABG pO2 65.3 mmHg (83-108) L 05/03/21 04:49 ABG pO2 130.3 mm Hg (80.0-90.0) H 05/14/21 02:23 POC ABG HCO3 18.5 05/03/21 04:49 ABG HCO3 30.6 mmol/L (20.0-26.0) H 05/14/21 02:23 ABG O2 Saturation 98.5 % (95.0-99.0) 05/14/21 02:23 ABG O2 Content 17.9 (0.0-44) 05/14/21 02:23 POC ABG Base Excess -8.9 05/03/21 04:49 ABG Base Excess 4.9 mmol/L (-2.0-3.0) H 05/14/21 02:23 ABG Hemoglobin 13.0 gm/dl (12.0-16.0) 05/14/21 02:23 ABG Oxyhemoglobin 87.8 (94-98) L 05/03/21 04:49 ABG Carboxyhemoglobin 1.4 % (0.0-5.0) 05/14/21 02:23 ABG Methemoglobin 0.6 % (0.0-1.5) 05/14/21 02:23 ABG Sodium 133.0 mmol/L (136.0-145.0) L 05/03/21 04:49 ABG Potassium 3.9 mmol/L (3.40-4.50) 05/03/21 04:49 ABG Chloride 97.0 mmol/L (98-107) L 05/03/21 04:49 ABG Glucose 403 mg/dL (65-95) H 05/03/21 04:49 Oxyhemoglobin 96.5 % (95.0-99.0) 05/14/21 02:23 Carboxyhemoglobin 0.6 (0.5-1.5) 05/03/21 04:49 FiO2 90 % 05/14/21 02:23 FiO2 % 100.0 05/03/21 04:49 Sodium 142 mmol/L (137-145) 06/22/21 06:25 Potassium 4.3 mmol/L (3.6-5.0) D 06/22/21 06:25 Chloride 101.7 mmol/L (98-107) 06/22/21 06:25 Carbon Dioxide 30 mmol/L (22-30) 06/22/21 06:25 Anion Gap 15 mmol/L 06/22/21 06:25 BUN 20 mg/dL (7-17) H 06/22/21 06:25 Creatinine 0.2 mg/dL (0.6-1.2) L 06/22/21 06:25 Estimated GFR > 60 ml/min 06/22/21 06:25 BUN/Creatinine Ratio 100 % 06/22/21 06:25 Glucose 75 mg/dL (65-100) 06/22/21 06:25 POC Glucose 66 mg/dL (70-105) L 06/22/21 07:15 Hemoglobin A1c 8.5 % (4-6) H 04/18/21 07:36 Calcium 9.0 mg/dL (8.4-10.2) 06/22/21 06:25 Phosphorus 3.60 mg/dL (2.5-4.5) 05/06/21 05:00 Magnesium 2.00 mg/dL (1.7-2.3) 05/06/21 05:00 Ferritin 187.7 ng/mL (10.0-200.0) 06/05/21 05:26 Total Bilirubin 0.30 mg/dL (0.1-1.2) 06/02/21 05:34 AST 22 units/L (5-40) 06/02/21 05:34 ALT 69 units/L (7-56) H 06/02/21 05:34 Alkaline Phosphatase 66 units/L (35-129) 06/02/21 05:34 Lactate Dehydrogenase 475 units/L (91-180) H 06/05/21 05:26 C-Reactive Protein 0.10 mg/dL (0.00-1.30) 06/05/21 05:26 Total Protein 6.1 g/dL (6.3-8.2) L 06/02/21 05:34 Albumin 3.2 g/dL (3.9-5) L 06/02/21 05:34 Albumin/Globulin Ratio 1.1 % 06/02/21 05:34 Triglycerides < 9 mg/dL (2-149) 05/03/21 04:30 Procalcitonin < 0.05 ng/mL (<0.15) 05/23/21 09:50 Arterial Blood Glucose 403 mg/dL (65-95) H 05/03/21 04:49 Arterial Blood Ionized Calcium 4.9 mg/dL (4.6-5.3) 05/03/21 04:49 Coronavirus (PCR) Positive (Negative) A 06/05/21 08:30 Amos/IV: Voiding Method Bedside Commode Active Medications - Current Medications Current Medications: Generic Name Dose Route Start Last Admin Trade Name Freq PRN Reason Stop Dose Admin Acetaminophen 650 mg 04/16/21 14:00 06/20/21 10:18 Acetaminophen 325 Mg Tab PO 650 mg Q4H PRN Administration Pain MILD(1-3)/Fever >100.5/[place] Albuterol 2.5 mg 04/16/21 13:39 04/21/21 20:39 Albuterol 2.5 Mg/3 Ml Nebu IH 2.5 mg Q4HRT PRN Administration Shortness Of Breath Artificial Tears 2 drops 04/28/21 18:15 05/29/21 13:25 Hypromellose 0.5% Ophth Soln 15 Ml OU 2 drops Q4H PRN Administration Dry Eye(s) Ascorbic Acid 500 mg 04/24/21 10:00 06/22/21 09:23 Ascorbic Acid 500 Mg Tab PO 500 mg QDAY TUTU Administration Bisacodyl 10 mg 06/10/21 18:00 Bisacodyl 10 Mg Rect Supp [place] QDAY PRN Constipation Cholecalciferol 1,000 unit 04/17/21 10:00 06/22/21 09:24 Cholecalciferol (Vit D3) 1000 Unit (25 Mcg) Tab PO 1,000 unit QDAY TUTU Administration Clonazepam 1 mg 05/29/21 08:06 06/21/21 22:33 Clonazepam 0.5 Mg Tab PO 1 mg Q8H PRN Administration Anxiety Dextrose 50 ml 04/18/21 07:30 04/28/21 09:59 Dextrose 50% In Water (25gm) 50 Ml Syringe IV 50 ml Q30MIN PRN Administration Hypoglycemia Protocol Docusate Sodium 100 mg 04/30/21 10:00 06/22/21 09:22 Docusate Sodium 100 Mg Cap PO 100 mg BID TUTU Administration Enoxaparin Sodium 40 mg 05/19/21 22:00 06/21/21 22:19 Enoxaparin 40 Mg/0.4 Ml Inj SUB-Q 40 mg QDAY@2200 TUTU Administration Protocol Furosemide 40 mg 06/07/21 10:00 06/22/21 09:23 Furosemide 40 Mg/4 Ml Inj IV 40 mg QDAY TUTU Administration Insulin Glargine 25 units 05/04/21 11:05 06/22/21 09:22 Insulin Glargine 100 Units/Ml SUB-Q 25 units DAILY TUTU Administration Insulin Human Lispro 0 unit 05/18/21 12:00 06/22/21 08:13 Insulin Lispro 100 Unit/Ml SUB-Q Not Given ACHS TUTU Protocol Lorazepam 1 mg 05/25/21 14:40 06/11/21 23:55 Lorazepam 2 Mg/Ml Vial IV 1 mg Q6H PRN Administration Agitation Magnesium Hydroxide 30 ml 06/07/21 16:30 06/11/21 11:06 Magnesium Hydroxide (Mom) Oral Liqd Udc PO 30 ml QDAY PRN Administration Constipation Ondansetron HCl 4 mg 04/16/21 14:00 05/30/21 10:07 Ondansetron 4 Mg/2 Ml Inj IV 4 mg Q8H PRN Administration Nausea And Vomiting Prednisone 40 mg 06/20/21 11:36 06/22/21 09:22 Prednisone 20 Mg Tab PO 40 mg QDAY TUTU Administration Senna 17.2 mg 05/02/21 22:00 06/21/21 22:20 Sennosides 8.6 Mg Tab PO 17.2 mg QHS TUTU Administration Sodium Chloride 10 ml 04/16/21 22:00 06/22/21 09:23 Sodium Chloride 0.9% 10 Ml Flush Syringe IV 10 ml BID TUTU Administration Sodium Chloride 10 ml 04/16/21 13:39 05/22/21 15:21 Sodium Chloride 0.9% 10 Ml Flush Syringe IV 10 ml PRN PRN Administration LINE FLUSH Zinc Sulfate 220 mg 04/16/21 22:00 06/22/21 09:24 Zinc Sulfate 220 Mg Cap PO 220 mg BID TUTU Administration Zolpidem Tartrate 10 mg 05/26/21 08:56 06/21/21 22:29 Zolpidem 5 Mg Tab PO 10 mg QHS PRN Administration Insomnia Nutrition/Malnutrition Assess - Dietary Evaluation Nutrition/Malnutrition Findings: Nutrition Notes Start: 04/23/21 07:41 Freq: Status: Active Protocol: Document 06/04/21 11:07 FABIAN (Rec: 06/04/21 11:07 [email or web address]) Nutrition Notes Initial or Follow up Brief Note Current Diagnosis Respiratory Failure Other Pertinent Diagnosis oral thrush, COVID-19 pneu Current Diet GI soft Subjective/Other Information Pt continues to eat 75-100% of meals. Nutrition Intervention Revisit per MD consult or patient Sign Off request:
--- NOTE | 2021-06-22 10:25 | Progress Note ---
Assessment and Plan 50 y/o female with acute respiratory failure secondary to COVID19 pneumonia. 06/21/21: Continue pred at 40, will decrease likely Thursday/Thursday to 20 daily. Prone if able. Continue to wean as tolerated. Prognosis still remains guarded. 06/20/21: Will drop steroids down to 40 today. Proning. Continue to wean FiO2. 06/18/21: Wean Fio2 for sats >88%. Please encourage proning. Drop steroids down to 40 on . 06/14/21: Continue oral steroid therapy. Will do further weaning next week. Wean for sats >88% and prone as tolerated. Will see as needed over the weekend. 06/13/21: Will change to prednisone 60 daily starting tomorrow. Prone if able and wean for sats >88% 06/11/21: no new recs, will change to oral steroids tomorrow, continue to prone if able and wean for sats >88% 06/10/21: Will change to oral steroids on Thursday to begin prolonged taper 06/06/21: Continue to wean as tolerated, will drop steroids on tomorrow. 06/04/21: Clinically no change. Will drop steroids down the end of this week. 05/31/21: Clinically no change. Not eligible for LTACH. Encourage Proning. Will drop steroids down to 40 q8 05/29/21: No acute changes clinically. Still on HFNC but not really able to wean. Continue to encourage proning. Will drop steroids further on Thursday. 05/27/21: No improvement over the weekend but also no worsening. No other strategies to offer. Please continue to encourage patient to prone. I dropped steroids on yesterday. Will wean more later in the week. 05/24/21: No new recs again for today. Will see as needed over the weekend but follow chart peripherally for changes. 05/22/21: No new recs for today. Prognosis remains guarded. 05/21/21: Wean as tolerated. Prone if able. Guarded prognosis 05/20/21: COntinue current level of care. 05/17/21: Prone if possible. Wean FiO2 for sats >88%. Continue scheduled ativan. Prognosis is very very guarded. Unfunded so not a candidate for LTACH 05/16/21: Prone if willing. Wean FIO2 if patient will allow. Anxiety control. P rognosis still remains very guarded. 05/15/21: Not sure if MAR is accurate but may have only gotten one dose of scheduled anixolytic therapy. Continue proning as tolerated, and wean FiO2 and flow for sats >88%. Prognosi remains very very guarded to poor. 05/14/21: Will discontinue the buspar and make the ativan scheduled but will do q6 as oppose to q4 and attempt to leave parameters for nursing when not to give. If anxiety could be controlled, feel that patient could be weaned further. She has no funding so she is not a candidate for LTACH. Prone if possible. Guarded prognosis. This is her day. 05/13/21: Ordered buspar 10 BID to start with to help with anxiety. Please continue to wean FiO2 as tolerated. Will remind nurse that there is PRN ativan available. Continue higher doses of steroids. Prone if able. 05/12/21: Patient may need something longer acting for anxiety. Per chart has not gotten any ativan in days. Would be ok with either buspar or low dose klonopin bid. COntinue higher doses of steroids as patient seems to be responding. Prone if possible. 05/11/21: Continue high doses of steroids and continue to wean for sats >88%. Please encourage proning. 05/10/21: Will continue this dose of steroid at least through the weekend and assess for improvement. will speak with RT about aggressive weaning. Full dose anticoagulation continues. Very very guarded to poor prognosis. 05/09/21: Going to consider increasing steroids to 125q8, maybe as early as tomorrow. continue full dose anticoagulation. 05/08/21: Continue anticoagulation and steroids. Prone if possible. Anxiety control. No objection to CTA if this can happen. Very very guarded prognosis. 05/07/21: Spoke with IMS, not opposed to full dose anticoagulation. If patient goes back on NRB HFNC combo may need to consider restarting PPN again. Encourage proning. Guarded prognosis. 05/06/21: Continue to wean FiO2 and flow for sats >88%. Tolerating diet now so will stop PPN. Continue anxiety control. Continue IV steroids. Would not object to transfer to [facility] if bed available. Not sure why she was titrated back up to 100% from 85 as all sats documented in the RT's notes were acceptable. Same for under vital signs as well. 05/03/21: Set back last night from yesterday. Continue bipap therapy for now and attempt HFNC maybe later this afternoon. Continue to use PRN ativan but may need to schedule as she likely took off mask from anxiety. Continue IV steroids. Hold on transfer to COVID Floor. 05/02/21: Continue to wean FiO2 as tolerated for sats >88%. Will continue bipap at night. Patient has no funding so not a candidate for LTACH. Given that she has been stable and not requiring the combo of HFNC and NRB, will consider moving to COVID floor. 05/01/21: Continue to wean FiO2 for sats >88%. A sat of 90 is more than acceptable and oxygen should not be increased for this unless patient desats and remains at a sat lower than 88. Bipap at night to give some form of relief and HFNC during the day. Currently on just this alone which is improvement. Ok with daily diuresis but must monitor renal function and BP closely. She was over diuresed last week and we ended up giving fluid back. Prognosis remains guarded. 04/30/21: Will start CLinimix today for nutritional support, without electrolytes. Check labs in am. Prone if able. Continue precedx for anxiety. Very very guarded prognosis. Attempting our best to not intubate. 04/29/21: Continue precedex. Continue IV solumedrol. Prone if able. Guarded prognosis. 04/28/21: Continue Precedex. Picc team attempting to place line now. Stable on Bipap. Ordered steroids IV solumedrol to start today. Prognosis remains guarded, still at very high risk for intubation. 04/27/21: Hypotension improving/improved. Hold on any further lasix dosing. Continue precedex to help with anxeity. later today please attempt HFNC with NRB if needed. Attempt to feed if possible. Steroids end today, please order solumedrol 40q8 to start tomorrow (04/28/21). guarded prognosis. 04/26/21: Hypotension today, most likely from precedex use and diuresis that I did the last several days. Will bolus again today. Consider midodrine if BP does not respond. 04/25/21: Lasix again today. Keep PRN ativan for now. Hold on precedex for now. Guarded prognosis. Labs ordered for tomorrow. 04/24/21: Lasix today. Will also start patient on low dose PRN ativan. If this does not help will then try precedex. Guarded prognosis. 04/23/21: Prone as tolerated. No lasix today. Continue decadron. Guarded prognosis. High risk for intubation and high mortality with intubation. 04/19/21: Prone as tolerated during the day and sleep prone at night. Continue IV remdesivir and steroids. Did get actemra. Guarded prognosis. 1. Daily net negative state 2. Prone if possible 3. IV remdesivir. 4. Should be a candidate for Actemra 5. IV steroids 6. Guarded Prognosis Subjective Date of service: 06/22/21 Principal diagnosis: Covid-19 Interval history: Down to 50%, this is now the lowest she has been during this hospital stay. Objective Vital Signs - 12hr 06/21/21 06/22/21 06/22/21 22:30 01:59 04:08 Temperature 98.3 F 97.9 F Pulse Rate 107 H 80 Respiratory 18 16 Rate Blood Pressure 136/89 112/67 O2 Sat by Pulse 92 97 95 Oximetry 06/22/21 08:00 Temperature Pulse Rate Respiratory Rate Blood Pressure O2 Sat by Pulse 97 Oximetry Constitutional: no acute distress, alert Eyes: non-icteric ENT: oropharynx moist Neck: supple Effort: normal Ascultation: Bilateral: diminished breath sounds Cardiovascular: regular rate and rhythm Gastrointestinal: normoactive bowel sounds, soft, non-tender, non-distended Integumentary: normal Extremities: no cyanosis, no edema, pink and warm Neurologic: normal mental status, non-focal exam, pupils equal and round, CN II- XII normal Psychiatric: mood appropriate, affect normal CBC and BMP: 06/21/21 06:45 06/22/21 06:25 ABG, PT/INR, D-dimer: ABG ABG pH 7.403 pH Units (7.350-7.450) 05/14/21 02:23 POC ABG pCO2 45.4 mmHg (32.0-48.0) 05/03/21 04:49 ABG pCO2 50.2 mm Hg 05/14/21 02:23 POC ABG pO2 65.3 mmHg (83-108) L 05/03/21 04:49 ABG pO2 130.3 mm Hg (80.0-90.0) H 05/14/21 02:23 POC ABG HCO3 18.5 05/03/21 04:49 ABG O2 Saturation 98.5 % (95.0-99.0) 05/14/21 02:23 PT/INR, D-dimer D-Dimer 488.49 ng/mlDDU (0-234) H 06/05/21 05:26 Abnormal lab findings: Abnormal Labs 04/16/21 04/16/21 04/16/21 11:42 11:42 11:42 WBC MCH MCHC RDW 16.1 H Lymph % (Auto) 7.8 L Lymph # (Auto) 0.8 L Baso # (Auto) Seg Neutrophils % 87.7 H Seg Neuts % (Manual) Lymphocytes % (Manual) Seg Neutrophils # 8.5 H Seg Neutrophils # Man Lymphocytes # (Manual) D-Dimer 338.70 H ABG pH POC ABG pO2 ABG pO2 ABG HCO3 ABG O2 Saturation ABG Base Excess ABG Oxyhemoglobin ABG Sodium ABG Chloride ABG Glucose Oxyhemoglobin Carboxyhemoglobin Sodium Potassium Chloride Carbon Dioxide BUN Creatinine Glucose 194 H POC Glucose Hemoglobin A1c Ferritin AST ALT Alkaline Phosphatase Lactate Dehydrogenase C-Reactive Protein Total Protein 8.4 H Albumin 3.8 L Arterial Blood Glucose Coronavirus (PCR) 04/16/21 04/16/21 04/17/21 11:42 11:42 03:50 WBC MCH MCHC RDW 16.0 H Lymph % (Auto) 7.7 L Lymph # (Auto) 0.6 L Baso # (Auto) Seg Neutrophils % 89.8 H Seg Neuts % (Manual) Lymphocytes % (Manual) Seg Neutrophils # Seg Neutrophils # Man Lymphocytes # (Manual) D-Dimer ABG pH POC ABG pO2 ABG pO2 ABG HCO3 ABG O2 Saturation ABG Base Excess ABG Oxyhemoglobin ABG Sodium ABG Chloride ABG Glucose Oxyhemoglobin Carboxyhemoglobin Sodium Potassium Chloride Carbon Dioxide BUN Creatinine Glucose 195 H POC Glucose Hemoglobin A1c Ferritin 254.3 H AST ALT Alkaline Phosphatase Lactate Dehydrogenase 359 H C-Reactive Protein 15.20 H Total Protein Albumin Arterial Blood Glucose Coronavirus (PCR) 04/17/21 04/17/21 04/17/21 03:50 08:26 08:26 WBC MCH MCHC RDW Lymph % (Auto) Lymph # (Auto) Baso # (Auto) Seg Neutrophils % Seg Neuts % (Manual) Lymphocytes % (Manual) Seg Neutrophils # Seg Neutrophils # Man Lymphocytes # (Manual) D-Dimer 262.48 H ABG pH POC ABG pO2 ABG pO2 ABG HCO3 ABG O2 Saturation ABG Base Excess ABG Oxyhemoglobin ABG Sodium ABG Chloride ABG Glucose Oxyhemoglobin Carboxyhemoglobin Sodium Potassium Chloride Carbon Dioxide BUN 20 H Creatinine 0.5 L Glucose 249 H 225 H POC Glucose Hemoglobin A1c Ferritin AST ALT Alkaline Phosphatase Lactate Dehydrogenase 338 H C-Reactive Protein 17.20 H Total Protein Albumin 3.2 L Arterial Blood Glucose Coronavirus (PCR) 04/17/21 04/17/21 04/17/21 08:26 15:04 Unknown WBC MCH MCHC RDW Lymph % (Auto) Lymph # (Auto) Baso # (Auto) Seg Neutrophils % Seg Neuts % (Manual) Lymphocytes % (Manual) Seg Neutrophils # Seg Neutrophils # Man Lymphocytes # (Manual) D-Dimer ABG pH POC ABG pO2 ABG pO2 ABG HCO3 ABG O2 Saturation ABG Base Excess ABG Oxyhemoglobin ABG Sodium ABG Chloride ABG Glucose Oxyhemoglobin Carboxyhemoglobin Sodium Potassium Chloride Carbon Dioxide BUN 20 H Creatinine 0.5 L Glucose 246 H POC Glucose Hemoglobin A1c Ferritin 392.0 H AST ALT Alkaline Phosphatase Lactate Dehydrogenase C-Reactive Protein Total Protein 8.3 H Albumin 3.1 L Arterial Blood Glucose Coronavirus (PCR) Positive A 04/18/21 04/18/21 04/18/21 05:06 05:06 07:36 WBC 11.6 H MCH MCHC RDW 16.1 H Lymph % (Auto) Lymph # (Auto) Baso # (Auto) Seg Neutrophils % Seg Neuts % (Manual) Lymphocytes % (Manual) Seg Neutrophils # Seg Neutrophils # Man Lymphocytes # (Manual) D-Dimer ABG pH POC ABG pO2 ABG pO2 ABG HCO3 ABG O2 Saturation ABG Base Excess ABG Oxyhemoglobin ABG Sodium ABG Chloride ABG Glucose Oxyhemoglobin Carboxyhemoglobin Sodium Potassium 5.2 H Chloride Carbon Dioxide BUN 22 H Creatinine 0.5 L Glucose 315 H POC Glucose Hemoglobin A1c 8.5 H Ferritin AST ALT Alkaline Phosphatase Lactate Dehydrogenase C-Reactive Protein Total Protein Albumin 3.3 L Arterial Blood Glucose Coronavirus (PCR) 04/18/21 04/18/21 04/18/21 11:59 16:43 23:24 WBC MCH MCHC RDW Lymph % (Auto) Lymph # (Auto) Baso # (Auto) Seg Neutrophils % Seg Neuts % (Manual) Lymphocytes % (Manual) Seg Neutrophils # Seg Neutrophils # Man Lymphocytes # (Manual) D-Dimer ABG pH POC ABG pO2 ABG pO2 ABG HCO3 ABG O2 Saturation ABG Base Excess ABG Oxyhemoglobin ABG Sodium ABG Chloride ABG Glucose Oxyhemoglobin Carboxyhemoglobin Sodium Potassium Chloride Carbon Dioxide BUN Creatinine Glucose POC Glucose 284 H 273 H 290 H Hemoglobin A1c Ferritin AST ALT Alkaline Phosphatase Lactate Dehydrogenase C-Reactive Protein Total Protein Albumin Arterial Blood Glucose Coronavirus (PCR) 04/19/21 04/19/21 04/19/21 04:19 04:19 08:10 WBC MCH MCHC RDW 15.7 H Lymph % (Auto) Lymph # (Auto) Baso # (Auto) Seg Neutrophils % Seg Neuts % (Manual) Lymphocytes % (Manual) Seg Neutrophils # Seg Neutrophils # Man Lymphocytes # (Manual) D-Dimer ABG pH POC ABG pO2 ABG pO2 ABG HCO3 ABG O2 Saturation ABG Base Excess ABG Oxyhemoglobin ABG Sodium ABG Chloride ABG Glucose Oxyhemoglobin Carboxyhemoglobin Sodium Potassium Chloride Carbon Dioxide BUN 27 H Creatinine 0.4 L Glucose 184 H POC Glucose 194 H Hemoglobin A1c Ferritin AST ALT Alkaline Phosphatase Lactate Dehydrogenase C-Reactive Protein Total Protein Albumin 3.1 L Arterial Blood Glucose Coronavirus (PCR) 04/19/21 04/19/21 04/19/21 11:38 16:25 22:04 WBC MCH MCHC RDW Lymph % (Auto) Lymph # (Auto) Baso # (Auto) Seg Neutrophils % Seg Neuts % (Manual) Lymphocytes % (Manual) Seg Neutrophils # Seg Neutrophils # Man Lymphocytes # (Manual) D-Dimer ABG pH POC ABG pO2 ABG pO2 ABG HCO3 ABG O2 Saturation ABG Base Excess ABG Oxyhemoglobin ABG Sodium ABG Chloride ABG Glucose Oxyhemoglobin Carboxyhemoglobin Sodium Potassium Chloride Carbon Dioxide BUN Creatinine Glucose POC Glucose 224 H 297 H 251 H Hemoglobin A1c Ferritin AST ALT Alkaline Phosphatase Lactate Dehydrogenase C-Reactive Protein Total Protein Albumin Arterial Blood Glucose Coronavirus (PCR) 04/20/21 04/20/21 04/20/21 05:28 08:43 16:21 WBC MCH MCHC RDW Lymph % (Auto) Lymph # (Auto) Baso # (Auto) Seg Neutrophils % Seg Neuts % (Manual) Lymphocytes % (Manual) Seg Neutrophils # Seg Neutrophils # Man Lymphocytes # (Manual) D-Dimer ABG pH POC ABG pO2 ABG pO2 ABG HCO3 ABG O2 Saturation ABG Base Excess ABG Oxyhemoglobin ABG Sodium ABG Chloride ABG Glucose Oxyhemoglobin Carboxyhemoglobin Sodium Potassium Chloride Carbon Dioxide BUN 27 H Creatinine Glucose 192 H POC Glucose 173 H 253 H Hemoglobin A1c Ferritin AST ALT Alkaline Phosphatase Lactate Dehydrogenase C-Reactive Protein Total Protein Albumin 3.0 L Arterial Blood Glucose Coronavirus (PCR) 04/21/21 04/21/21 04/21/21 07:58 12:05 16:08 WBC MCH MCHC RDW Lymph % (Auto) Lymph # (Auto) Baso # (Auto) Seg Neutrophils % Seg Neuts % (Manual) Lymphocytes % (Manual) Seg Neutrophils # Seg Neutrophils # Man Lymphocytes # (Manual) D-Dimer ABG pH POC ABG pO2 ABG pO2 ABG HCO3 ABG O2 Saturation ABG Base Excess ABG Oxyhemoglobin ABG Sodium ABG Chloride ABG Glucose Oxyhemoglobin Carboxyhemoglobin Sodium Potassium Chloride Carbon Dioxide BUN Creatinine Glucose POC Glucose 140 H 252 H 214 H Hemoglobin A1c Ferritin AST ALT Alkaline Phosphatase Lactate Dehydrogenase C-Reactive Protein Total Protein Albumin Arterial Blood Glucose Coronavirus (PCR) 04/21/21 04/22/21 04/22/21 21:42 08:37 12:01 WBC MCH MCHC RDW Lymph % (Auto) Lymph # (Auto) Baso # (Auto) Seg Neutrophils % Seg Neuts % (Manual) Lymphocytes % (Manual) Seg Neutrophils # Seg Neutrophils # Man Lymphocytes # (Manual) D-Dimer ABG pH 7.457 H POC ABG pO2 49.4 L ABG pO2 ABG HCO3 ABG O2 Saturation ABG Base Excess ABG Oxyhemoglobin 85.6 L ABG Sodium ABG Chloride ABG Glucose 121 H Oxyhemoglobin Carboxyhemoglobin 0.3 L Sodium Potassium Chloride Carbon Dioxide BUN Creatinine Glucose POC Glucose 162 H 227 H Hemoglobin A1c Ferritin AST ALT Alkaline Phosphatase Lactate Dehydrogenase C-Reactive Protein Total Protein Albumin Arterial Blood Glucose 121 H Coronavirus (PCR) 04/22/21 04/22/21 04/23/21 16:26 22:23 04:52 WBC MCH MCHC RDW 15.7 H Lymph % (Auto) Lymph # (Auto) Baso # (Auto) Seg Neutrophils % Seg Neuts % (Manual) Lymphocytes % (Manual) Seg Neutrophils # Seg Neutrophils # Man Lymphocytes # (Manual) D-Dimer ABG pH POC ABG pO2 ABG pO2 ABG HCO3 ABG O2 Saturation ABG Base Excess ABG Oxyhemoglobin ABG Sodium ABG Chloride ABG Glucose Oxyhemoglobin Carboxyhemoglobin Sodium Potassium Chloride Carbon Dioxide BUN Creatinine Glucose POC Glucose 200 H 136 H Hemoglobin A1c Ferritin AST ALT Alkaline Phosphatase Lactate Dehydrogenase C-Reactive Protein Total Protein Albumin Arterial Blood Glucose Coronavirus (PCR) 04/23/21 04/23/21 04/23/21 04:52 12:06 17:41 WBC MCH MCHC RDW Lymph % (Auto) Lymph # (Auto) Baso # (Auto) Seg Neutrophils % Seg Neuts % (Manual) Lymphocytes % (Manual) Seg Neutrophils # Seg Neutrophils # Man Lymphocytes # (Manual) D-Dimer ABG pH POC ABG pO2 ABG pO2 ABG HCO3 ABG O2 Saturation ABG Base Excess ABG Oxyhemoglobin ABG Sodium ABG Chloride ABG Glucose Oxyhemoglobin Carboxyhemoglobin Sodium 136 L Potassium Chloride 97.7 L Carbon Dioxide BUN 23 H Creatinine Glucose 101 H POC Glucose 202 H 169 H Hemoglobin A1c Ferritin AST 46 H ALT Alkaline Phosphatase Lactate Dehydrogenase C-Reactive Protein Total Protein Albumin 3.3 L Arterial Blood Glucose Coronavirus (PCR) 04/23/21 04/24/21 04/24/21 23:08 05:17 08:38 WBC MCH MCHC RDW Lymph % (Auto) Lymph # (Auto) Baso # (Auto) Seg Neutrophils % Seg Neuts % (Manual) Lymphocytes % (Manual) Seg Neutrophils # Seg Neutrophils # Man Lymphocytes # (Manual) D-Dimer ABG pH POC ABG pO2 ABG pO2 ABG HCO3 ABG O2 Saturation ABG Base Excess ABG Oxyhemoglobin ABG Sodium ABG Chloride ABG Glucose Oxyhemoglobin Carboxyhemoglobin Sodium Potassium Chloride Carbon Dioxide BUN Creatinine Glucose POC Glucose 111 H 108 H 126 H Hemoglobin A1c Ferritin AST ALT Alkaline Phosphatase Lactate Dehydrogenase C-Reactive Protein Total Protein Albumin Arterial Blood Glucose Coronavirus (PCR) 04/24/21 04/24/21 04/24/21 11:54 17:57 21:23 WBC MCH MCHC RDW Lymph % (Auto) Lymph # (Auto) Baso # (Auto) Seg Neutrophils % Seg Neuts % (Manual) Lymphocytes % (Manual) Seg Neutrophils # Seg Neutrophils # Man Lymphocytes # (Manual) D-Dimer ABG pH POC ABG pO2 ABG pO2 ABG HCO3 ABG O2 Saturation ABG Base Excess ABG Oxyhemoglobin ABG Sodium ABG Chloride ABG Glucose Oxyhemoglobin Carboxyhemoglobin Sodium Potassium Chloride Carbon Dioxide BUN Creatinine Glucose POC Glucose 147 H 177 H 138 H Hemoglobin A1c Ferritin AST ALT Alkaline Phosphatase Lactate Dehydrogenase C-Reactive Protein Total Protein Albumin Arterial Blood Glucose Coronavirus (PCR) 04/25/21 04/25/21 04/25/21 07:06 11:23 15:43 WBC MCH MCHC RDW Lymph % (Auto) Lymph # (Auto) Baso # (Auto) Seg Neutrophils % Seg Neuts % (Manual) Lymphocytes % (Manual) Seg Neutrophils # Seg Neutrophils # Man Lymphocytes # (Manual) D-Dimer ABG pH POC ABG pO2 ABG pO2 ABG HCO3 ABG O2 Saturation ABG Base Excess ABG Oxyhemoglobin ABG Sodium ABG Chloride ABG Glucose Oxyhemoglobin Carboxyhemoglobin Sodium Potassium Chloride Carbon Dioxide BUN Creatinine Glucose POC Glucose 147 H 169 H 227 H Hemoglobin A1c Ferritin AST ALT Alkaline Phosphatase Lactate Dehydrogenase C-Reactive Protein Total Protein Albumin Arterial Blood Glucose Coronavirus (PCR) 04/25/21 04/26/21 04/26/21 21:22 02:45 05:15 WBC MCH MCHC RDW Lymph % (Auto) Lymph # (Auto) Baso # (Auto) Seg Neutrophils % Seg Neuts % (Manual) Lymphocytes % (Manual) Seg Neutrophils # Seg Neutrophils # Man Lymphocytes # (Manual) D-Dimer ABG pH POC ABG pO2 70.7 L ABG pO2 ABG HCO3 ABG O2 Saturation ABG Base Excess ABG Oxyhemoglobin 93.0 L ABG Sodium 132.7 L ABG Chloride ABG Glucose 115 H Oxyhemoglobin Carboxyhemoglobin Sodium Potassium Chloride 95.8 L Carbon Dioxide 32 H BUN 20 H Creatinine Glucose 102 H POC Glucose 196 H Hemoglobin A1c Ferritin AST ALT Alkaline Phosphatase Lactate Dehydrogenase C-Reactive Protein Total Protein Albumin Arterial Blood Glucose 115 H Coronavirus (PCR) 04/26/21 04/26/2121 11:49 16:09 21:07 WBC MCH MCHC RDW Lymph % (Auto) Lymph # (Auto) Baso # (Auto) Seg Neutrophils % Seg Neuts % (Manual) Lymphocytes % (Manual) Seg Neutrophils # Seg Neutrophils # Man Lymphocytes # (Manual) D-Dimer ABG pH POC ABG pO2 ABG pO2 ABG HCO3 ABG O2 Saturation ABG Base Excess ABG Oxyhemoglobin ABG Sodium ABG Chloride ABG Glucose Oxyhemoglobin Carboxyhemoglobin Sodium Potassium Chloride Carbon Dioxide BUN Creatinine Glucose POC Glucose 114 H 188 H 136 H Hemoglobin A1c Ferritin AST ALT Alkaline Phosphatase Lactate Dehydrogenase C-Reactive Protein Total Protein Albumin Arterial Blood Glucose Coronavirus (PCR) 04/27/21 04/27/21 04/28/21 17:34 22:12 08:26 WBC MCH MCHC RDW Lymph % (Auto) Lymph # (Auto) Baso # (Auto) Seg Neutrophils % Seg Neuts % (Manual) Lymphocytes % (Manual) Seg Neutrophils # Seg Neutrophils # Man Lymphocytes # (Manual) D-Dimer ABG pH POC ABG pO2 ABG pO2 ABG HCO3 ABG O2 Saturation ABG Base Excess ABG Oxyhemoglobin ABG Sodium ABG Chloride ABG Glucose Oxyhemoglobin Carboxyhemoglobin Sodium Potassium Chloride Carbon Dioxide BUN Creatinine Glucose POC Glucose 128 H 159 H 69 L Hemoglobin A1c Ferritin AST ALT Alkaline Phosphatase Lactate Dehydrogenase C-Reactive Protein Total Protein Albumin Arterial Blood Glucose Coronavirus (PCR) 04/28/21 04/28/21 04/29/21 12:22 21:11 06:05 WBC MCH MCHC RDW Lymph % (Auto) Lymph # (Auto) Baso # (Auto) Seg Neutrophils % Seg Neuts % (Manual) Lymphocytes % (Manual) Seg Neutrophils # Seg Neutrophils # Man Lymphocytes # (Manual) D-Dimer ABG pH POC ABG pO2 ABG pO2 ABG HCO3 ABG O2 Saturation ABG Base Excess ABG Oxyhemoglobin ABG Sodium ABG Chloride ABG Glucose Oxyhemoglobin Carboxyhemoglobin Sodium 132 L Potassium Chloride 94.4 L Carbon Dioxide BUN Creatinine 0.2 L D Glucose 140 H POC Glucose 141 H 171 H Hemoglobin A1c Ferritin AST ALT Alkaline Phosphatase Lactate Dehydrogenase C-Reactive Protein Total Protein Albumin Arterial Blood Glucose Coronavirus (PCR) 04/29/21 04/29/21 04/29/21 06:05 07:24 11:36 WBC MCH MCHC 35 H RDW 15.9 H Lymph % (Auto) Lymph # (Auto) Baso # (Auto) Seg Neutrophils % Seg Neuts % (Manual) Lymphocytes % (Manual) Seg Neutrophils # Seg Neutrophils # Man Lymphocytes # (Manual) D-Dimer ABG pH POC ABG pO2 ABG pO2 ABG HCO3 ABG O2 Saturation ABG Base Excess ABG Oxyhemoglobin ABG Sodium ABG Chloride ABG Glucose Oxyhemoglobin Carboxyhemoglobin Sodium Potassium Chloride Carbon Dioxide BUN Creatinine Glucose POC Glucose 141 H 220 H Hemoglobin A1c Ferritin AST ALT Alkaline Phosphatase Lactate Dehydrogenase C-Reactive Protein Total Protein Albumin Arterial Blood Glucose Coronavirus (PCR) 04/29/21 04/29/21 04/29/21 14:23 15:30 17:06 WBC MCH MCHC RDW Lymph % (Auto) Lymph # (Auto) Baso # (Auto) Seg Neutrophils % Seg Neuts % (Manual) Lymphocytes % (Manual) Seg Neutrophils # Seg Neutrophils # Man Lymphocytes # (Manual) D-Dimer ABG pH POC ABG pO2 ABG pO2 52.6 L ABG HCO3 ABG O2 Saturation 86.4 L ABG Base Excess ABG Oxyhemoglobin ABG Sodium ABG Chloride ABG Glucose Oxyhemoglobin 84.6 L Carboxyhemoglobin Sodium Potassium Chloride Carbon Dioxide BUN Creatinine Glucose POC Glucose 173 H 158 H Hemoglobin A1c Ferritin AST ALT Alkaline Phosphatase Lactate Dehydrogenase C-Reactive Protein Total Protein Albumin Arterial Blood Glucose Coronavirus (PCR) 04/29/21 04/30/21 04/30/21 21:27 07:16 08:00 WBC MCH MCHC RDW 16.1 H Lymph % (Auto) Lymph # (Auto) Baso # (Auto) Seg Neutrophils % Seg Neuts % (Manual) Lymphocytes % (Manual) Seg Neutrophils # Seg Neutrophils # Man Lymphocytes # (Manual) D-Dimer ABG pH POC ABG pO2 ABG pO2 ABG HCO3 ABG O2 Saturation ABG Base Excess ABG Oxyhemoglobin ABG Sodium ABG Chloride ABG Glucose Oxyhemoglobin Carboxyhemoglobin Sodium Potassium Chloride Carbon Dioxide BUN Creatinine Glucose POC Glucose 244 H 175 H Hemoglobin A1c Ferritin AST ALT Alkaline Phosphatase Lactate Dehydrogenase C-Reactive Protein Total Protein Albumin Arterial Blood Glucose Coronavirus (PCR) 04/30/21 04/30/21 04/30/21 08:00 08:00 11:03 WBC MCH MCHC RDW Lymph % (Auto) Lymph # (Auto) Baso # (Auto) Seg Neutrophils % Seg Neuts % (Manual) Lymphocytes % (Manual) Seg Neutrophils # Seg Neutrophils # Man Lymphocytes # (Manual) D-Dimer 1796.87 H ABG pH POC ABG pO2 ABG pO2 ABG HCO3 ABG O2 Saturation ABG Base Excess ABG Oxyhemoglobin ABG Sodium ABG Chloride ABG Glucose Oxyhemoglobin Carboxyhemoglobin Sodium 135 L Potassium Chloride 96.3 L Carbon Dioxide BUN Creatinine 0.2 L Glucose 153 H POC Glucose 183 H Hemoglobin A1c Ferritin AST 41 H ALT 76 H Alkaline Phosphatase 160 H Lactate Dehydrogenase 522 H C-Reactive Protein Total Protein 6.1 L Albumin 3.1 L Arterial Blood Glucose Coronavirus (PCR) 04/30/21 04/30/21 05/01/21 17:04 22:17 05:39 WBC MCH MCHC RDW Lymph % (Auto) Lymph # (Auto) Baso # (Auto) Seg Neutrophils % Seg Neuts % (Manual) Lymphocytes % (Manual) Seg Neutrophils # Seg Neutrophils # Man Lymphocytes # (Manual) D-Dimer ABG pH POC ABG pO2 ABG pO2 ABG HCO3 ABG O2 Saturation ABG Base Excess ABG Oxyhemoglobin ABG Sodium ABG Chloride ABG Glucose Oxyhemoglobin Carboxyhemoglobin Sodium 133 L Potassium Chloride 92.1 L Carbon Dioxide BUN 24 H Creatinine 0.4 L D Glucose 269 H POC Glucose 167 H 208 H Hemoglobin A1c Ferritin AST ALT 66 H Alkaline Phosphatase 142 H Lactate Dehydrogenase C-Reactive Protein Total Protein Albumin 3.2 L Arterial Blood Glucose Coronavirus (PCR) 05/01/21 05/01/21 05/01/21 05:39 05:39 07:45 WBC MCH MCHC RDW 16.0 H Lymph % (Auto) Lymph # (Auto) Baso # (Auto) Seg Neutrophils % Seg Neuts % (Manual) Lymphocytes % (Manual) Seg Neutrophils # Seg Neutrophils # Man Lymphocytes # (Manual) D-Dimer 3984.95 H ABG pH POC ABG pO2 ABG pO2 ABG HCO3 ABG O2 Saturation ABG Base Excess ABG Oxyhemoglobin ABG Sodium ABG Chloride ABG Glucose Oxyhemoglobin Carboxyhemoglobin Sodium Potassium Chloride Carbon Dioxide BUN Creatinine Glucose POC Glucose 229 H Hemoglobin A1c Ferritin AST ALT Alkaline Phosphatase Lactate Dehydrogenase C-Reactive Protein Total Protein Albumin Arterial Blood Glucose Coronavirus (PCR) 05/01/21 05/01/21 05/01/21 12:10 15:46 21:06 WBC MCH MCHC RDW Lymph % (Auto) Lymph # (Auto) Baso # (Auto) Seg Neutrophils % Seg Neuts % (Manual) Lymphocytes % (Manual) Seg Neutrophils # Seg Neutrophils # Man Lymphocytes # (Manual) D-Dimer ABG pH POC ABG pO2 ABG pO2 ABG HCO3 ABG O2 Saturation ABG Base Excess ABG Oxyhemoglobin ABG Sodium ABG Chloride ABG Glucose Oxyhemoglobin Carboxyhemoglobin Sodium Potassium Chloride Carbon Dioxide BUN Creatinine Glucose POC Glucose 296 H 279 H 232 H Hemoglobin A1c Ferritin AST ALT Alkaline Phosphatase Lactate Dehydrogenase C-Reactive Protein Total Protein Albumin Arterial Blood Glucose Coronavirus (PCR) 05/02/21 05/02/21 05/02/21 04:55 04:55 04:55 WBC MCH MCHC RDW 16.1 H Lymph % (Auto) Lymph # (Auto) Baso # (Auto) Seg Neutrophils % Seg Neuts % (Manual) Lymphocytes % (Manual) Seg Neutrophils # Seg Neutrophils # Man Lymphocytes # (Manual) D-Dimer 1401.08 H ABG pH POC ABG pO2 ABG pO2 ABG HCO3 ABG O2 Saturation ABG Base Excess ABG Oxyhemoglobin ABG Sodium ABG Chloride ABG Glucose Oxyhemoglobin Carboxyhemoglobin Sodium 131 L Potassium Chloride 95.5 L Carbon Dioxide BUN 20 H Creatinine 0.3 L Glucose 288 H POC Glucose Hemoglobin A1c Ferritin AST ALT Alkaline Phosphatase Lactate Dehydrogenase C-Reactive Protein Total Protein 6.0 L Albumin 3.1 L Arterial Blood Glucose Coronavirus (PCR) 05/02/21 05/02/21 05/02/21 07:53 11:45 15:25 WBC MCH MCHC RDW Lymph % (Auto) Lymph # (Auto) Baso # (Auto) Seg Neutrophils % Seg Neuts % (Manual) Lymphocytes % (Manual) Seg Neutrophils # Seg Neutrophils # Man Lymphocytes # (Manual) D-Dimer ABG pH POC ABG pO2 ABG pO2 ABG HCO3 ABG O2 Saturation ABG Base Excess ABG Oxyhemoglobin ABG Sodium ABG Chloride ABG Glucose Oxyhemoglobin Carboxyhemoglobin Sodium Potassium Chloride Carbon Dioxide BUN Creatinine Glucose POC Glucose 180 H 228 H 275 H Hemoglobin A1c Ferritin AST ALT Alkaline Phosphatase Lactate Dehydrogenase C-Reactive Protein Total Protein Albumin Arterial Blood Glucose Coronavirus (PCR) 05/02/21 05/03/21 05/03/21 22:56 04:30 04:49 WBC MCH MCHC RDW Lymph % (Auto) Lymph # (Auto) Baso # (Auto) Seg Neutrophils % Seg Neuts % (Manual) Lymphocytes % (Manual) Seg Neutrophils # Seg Neutrophils # Man Lymphocytes # (Manual) D-Dimer ABG pH 7.229 L POC ABG pO2 65.3 L ABG pO2 ABG HCO3 ABG O2 Saturation ABG Base Excess ABG Oxyhemoglobin 87.8 L ABG Sodium 133.0 L ABG Chloride 97.0 L ABG Glucose 403 H Oxyhemoglobin Carboxyhemoglobin Sodium 130 L Potassium Chloride 94.9 L Carbon Dioxide BUN 20 H Creatinine 0.5 L D Glucose 359 H POC Glucose 293 H Hemoglobin A1c Ferritin AST 54 H ALT 75 H Alkaline Phosphatase 138 H Lactate Dehydrogenase C-Reactive Protein Total Protein Albumin 3.6 L Arterial Blood Glucose 403 H Coronavirus (PCR) 05/03/21 05/03/21 05/03/21 05:27 11:26 17:57 WBC MCH MCHC RDW Lymph % (Auto) Lymph # (Auto) Baso # (Auto) Seg Neutrophils % Seg Neuts % (Manual) Lymphocytes % (Manual) Seg Neutrophils # Seg Neutrophils # Man Lymphocytes # (Manual) D-Dimer ABG pH POC ABG pO2 ABG pO2 ABG HCO3 ABG O2 Saturation ABG Base Excess ABG Oxyhemoglobin ABG Sodium ABG Chloride ABG Glucose Oxyhemoglobin Carboxyhemoglobin Sodium Potassium Chloride Carbon Dioxide BUN Creatinine Glucose POC Glucose 361 H 297 H 226 H Hemoglobin A1c Ferritin AST ALT Alkaline Phosphatase Lactate Dehydrogenase C-Reactive Protein Total Protein Albumin Arterial Blood Glucose Coronavirus (PCR) 05/03/21 05/04/21 05/04/21 23:12 05:12 07:30 WBC MCH MCHC RDW Lymph % (Auto) Lymph # (Auto) Baso # (Auto) Seg Neutrophils % Seg Neuts % (Manual) Lymphocytes % (Manual) Seg Neutrophils # Seg Neutrophils # Man Lymphocytes # (Manual) D-Dimer ABG pH POC ABG pO2 ABG pO2 ABG HCO3 ABG O2 Saturation ABG Base Excess ABG Oxyhemoglobin ABG Sodium ABG Chloride ABG Glucose Oxyhemoglobin Carboxyhemoglobin Sodium Potassium Chloride Carbon Dioxide BUN Creatinine Glucose POC Glucose 282 H 285 H 254 H Hemoglobin A1c Ferritin AST ALT Alkaline Phosphatase Lactate Dehydrogenase C-Reactive Protein Total Protein Albumin Arterial Blood Glucose Coronavirus (PCR) 05/04/21 05/04/21 05/04/21 08:58 11:45 16:07 WBC MCH MCHC RDW Lymph % (Auto) Lymph # (Auto) Baso # (Auto) Seg Neutrophils % Seg Neuts % (Manual) Lymphocytes % (Manual) Seg Neutrophils # Seg Neutrophils # Man Lymphocytes # (Manual) D-Dimer ABG pH POC ABG pO2 ABG pO2 ABG HCO3 ABG O2 Saturation ABG Base Excess ABG Oxyhemoglobin ABG Sodium ABG Chloride ABG Glucose Oxyhemoglobin Carboxyhemoglobin Sodium 134 L Potassium Chloride Carbon Dioxide BUN 20 H Creatinine 0.3 L Glucose 267 H POC Glucose 244 H 297 H Hemoglobin A1c Ferritin AST ALT Alkaline Phosphatase Lactate Dehydrogenase C-Reactive Protein Total Protein 6.0 L Albumin 3.2 L Arterial Blood Glucose Coronavirus (PCR) 05/04/21 05/05/21 05/05/21 23:32 05:00 05:13 WBC MCH MCHC RDW Lymph % (Auto) Lymph # (Auto) Baso # (Auto) Seg Neutrophils % Seg Neuts % (Manual) Lymphocytes % (Manual) Seg Neutrophils # Seg Neutrophils # Man Lymphocytes # (Manual) D-Dimer ABG pH POC ABG pO2 ABG pO2 ABG HCO3 ABG O2 Saturation ABG Base Excess ABG Oxyhemoglobin ABG Sodium ABG Chloride ABG Glucose Oxyhemoglobin Carboxyhemoglobin Sodium 132 L Potassium Chloride 96.4 L Carbon Dioxide BUN 22 H Creatinine 0.3 L Glucose 228 H POC Glucose 154 H 260 H Hemoglobin A1c Ferritin AST ALT 67 H Alkaline Phosphatase Lactate Dehydrogenase C-Reactive Protein Total Protein 6.1 L Albumin 3.2 L Arterial Blood Glucose Coronavirus (PCR) 05/05/21 05/05/21 05/05/21 11:32 17:49 23:07 WBC MCH MCHC RDW Lymph % (Auto) Lymph # (Auto) Baso # (Auto) Seg Neutrophils % Seg Neuts % (Manual) Lymphocytes % (Manual) Seg Neutrophils # Seg Neutrophils # Man Lymphocytes # (Manual) D-Dimer ABG pH POC ABG pO2 ABG pO2 ABG HCO3 ABG O2 Saturation ABG Base Excess ABG Oxyhemoglobin ABG Sodium ABG Chloride ABG Glucose Oxyhemoglobin Carboxyhemoglobin Sodium Potassium Chloride Carbon Dioxide BUN Creatinine Glucose POC Glucose 279 H 308 H 213 H Hemoglobin A1c Ferritin AST ALT Alkaline Phosphatase Lactate Dehydrogenase C-Reactive Protein Total Protein Albumin Arterial Blood Glucose Coronavirus (PCR) 05/06/21 05/06/21 05/06/21 05:00 05:00 05:20 WBC MCH MCHC RDW 16.8 H Lymph % (Auto) Lymph # (Auto) Baso # (Auto) Seg Neutrophils % Seg Neuts % (Manual) 99.0 H Lymphocytes % (Manual) Seg Neutrophils # Seg Neutrophils # Man 10.9 H Lymphocytes # (Manual) 0.0 L D-Dimer ABG pH POC ABG pO2 ABG pO2 ABG HCO3 ABG O2 Saturation ABG Base Excess ABG Oxyhemoglobin ABG Sodium ABG Chloride ABG Glucose Oxyhemoglobin Carboxyhemoglobin Sodium 133 L Potassium Chloride Carbon Dioxide BUN 21 H Creatinine 0.3 L Glucose 259 H POC Glucose 308 H Hemoglobin A1c Ferritin AST ALT Alkaline Phosphatase Lactate Dehydrogenase C-Reactive Protein Total Protein Albumin 3.2 L Arterial Blood Glucose Coronavirus (PCR) 05/06/21 05/06/21 05/06/21 11:24 17:54 21:32 WBC MCH MCHC RDW Lymph % (Auto) Lymph # (Auto) Baso # (Auto) Seg Neutrophils % Seg Neuts % (Manual) Lymphocytes % (Manual) Seg Neutrophils # Seg Neutrophils # Man Lymphocytes # (Manual) D-Dimer ABG pH POC ABG pO2 ABG pO2 ABG HCO3 ABG O2 Saturation ABG Base Excess ABG Oxyhemoglobin ABG Sodium ABG Chloride ABG Glucose Oxyhemoglobin Carboxyhemoglobin Sodium Potassium Chloride Carbon Dioxide BUN Creatinine Glucose POC Glucose 262 H 124 H 246 H Hemoglobin A1c Ferritin AST ALT Alkaline Phosphatase Lactate Dehydrogenase C-Reactive Protein Total Protein Albumin Arterial Blood Glucose Coronavirus (PCR) 05/06/21 05/07/21 05/07/21 23:10 04:54 04:54 WBC MCH MCHC RDW Lymph % (Auto) Lymph # (Auto) Baso # (Auto) Seg Neutrophils % Seg Neuts % (Manual) Lymphocytes % (Manual) Seg Neutrophils # Seg Neutrophils # Man Lymphocytes # (Manual) D-Dimer 1609.28 H ABG pH POC ABG pO2 ABG pO2 ABG HCO3 ABG O2 Saturation ABG Base Excess ABG Oxyhemoglobin ABG Sodium ABG Chloride ABG Glucose Oxyhemoglobin Carboxyhemoglobin Sodium 136 L Potassium Chloride Carbon Dioxide BUN 23 H Creatinine 0.3 L Glucose 110 H POC Glucose 249 H Hemoglobin A1c Ferritin AST ALT Alkaline Phosphatase Lactate Dehydrogenase C-Reactive Protein Total Protein 6.2 L Albumin 3.0 L Arterial Blood Glucose Coronavirus (PCR) 05/07/21 05/07/21 05/07/21 04:54 04:54 11:41 WBC MCH MCHC RDW Lymph % (Auto) Lymph # (Auto) Baso # (Auto) Seg Neutrophils % Seg Neuts % (Manual) Lymphocytes % (Manual) Seg Neutrophils # Seg Neutrophils # Man Lymphocytes # (Manual) D-Dimer ABG pH POC ABG pO2 ABG pO2 ABG HCO3 ABG O2 Saturation ABG Base Excess ABG Oxyhemoglobin ABG Sodium ABG Chloride ABG Glucose Oxyhemoglobin Carboxyhemoglobin Sodium Potassium Chloride Carbon Dioxide BUN Creatinine Glucose POC Glucose 118 H Hemoglobin A1c Ferritin 296.1 H AST ALT Alkaline Phosphatase Lactate Dehydrogenase 724 H C-Reactive Protein Total Protein Albumin Arterial Blood Glucose Coronavirus (PCR) 05/07/21 05/07/21 05/08/21 16:43 22:34 06:44 WBC MCH MCHC RDW Lymph % (Auto) Lymph # (Auto) Baso # (Auto) Seg Neutrophils % Seg Neuts % (Manual) Lymphocytes % (Manual) Seg Neutrophils # Seg Neutrophils # Man Lymphocytes # (Manual) D-Dimer ABG pH POC ABG pO2 ABG pO2 ABG HCO3 ABG O2 Saturation ABG Base Excess ABG Oxyhemoglobin ABG Sodium ABG Chloride ABG Glucose Oxyhemoglobin Carboxyhemoglobin Sodium Potassium Chloride Carbon Dioxide BUN Creatinine Glucose POC Glucose 159 H 233 H 235 H Hemoglobin A1c Ferritin AST ALT Alkaline Phosphatase Lactate Dehydrogenase C-Reactive Protein Total Protein Albumin Arterial Blood Glucose Coronavirus (PCR) 05/08/21 05/08/21 05/08/21 07:49 11:56 17:13 WBC MCH MCHC RDW Lymph % (Auto) Lymph # (Auto) Baso # (Auto) Seg Neutrophils % Seg Neuts % (Manual) Lymphocytes % (Manual) Seg Neutrophils # Seg Neutrophils # Man Lymphocytes # (Manual) D-Dimer ABG pH POC ABG pO2 ABG pO2 ABG HCO3 ABG O2 Saturation ABG Base Excess ABG Oxyhemoglobin ABG Sodium ABG Chloride ABG Glucose Oxyhemoglobin Carboxyhemoglobin Sodium Potassium Chloride Carbon Dioxide BUN Creatinine Glucose POC Glucose 219 H 184 H 182 H Hemoglobin A1c Ferritin AST ALT Alkaline Phosphatase Lactate Dehydrogenase C-Reactive Protein Total Protein Albumin Arterial Blood Glucose Coronavirus (PCR) 05/08/21 05/09/21 05/09/21 23:35 05:20 05:20 WBC MCH MCHC RDW Lymph % (Auto) Lymph # (Auto) Baso # (Auto) Seg Neutrophils % Seg Neuts % (Manual) Lymphocytes % (Manual) Seg Neutrophils # Seg Neutrophils # Man Lymphocytes # (Manual) D-Dimer 1003.87 H ABG pH POC ABG pO2 ABG pO2 ABG HCO3 ABG O2 Saturation ABG Base Excess ABG Oxyhemoglobin ABG Sodium ABG Chloride ABG Glucose Oxyhemoglobin Carboxyhemoglobin Sodium Potassium Chloride Carbon Dioxide BUN Creatinine Glucose POC Glucose 198 H Hemoglobin A1c Ferritin 378.7 H AST ALT Alkaline Phosphatase Lactate Dehydrogenase C-Reactive Protein Total Protein Albumin Arterial Blood Glucose Coronavirus (PCR) 05/09/21 05/09/21 05/09/21 05:20 06:04 12:53 WBC MCH MCHC RDW Lymph % (Auto) Lymph # (Auto) Baso # (Auto) Seg Neutrophils % Seg Neuts % (Manual) Lymphocytes % (Manual) Seg Neutrophils # Seg Neutrophils # Man Lymphocytes # (Manual) D-Dimer ABG pH POC ABG pO2 ABG pO2 ABG HCO3 ABG O2 Saturation ABG Base Excess ABG Oxyhemoglobin ABG Sodium ABG Chloride ABG Glucose Oxyhemoglobin Carboxyhemoglobin Sodium Potassium Chloride Carbon Dioxide BUN Creatinine Glucose POC Glucose 159 H 180 H Hemoglobin A1c Ferritin AST ALT Alkaline Phosphatase Lactate Dehydrogenase 558 H C-Reactive Protein 2.40 H Total Protein Albumin Arterial Blood Glucose Coronavirus (PCR) 05/09/21 05/09/21 05/10/21 16:43 21:27 10:18 WBC MCH MCHC RDW Lymph % (Auto) Lymph # (Auto) Baso # (Auto) Seg Neutrophils % Seg Neuts % (Manual) Lymphocytes % (Manual) Seg Neutrophils # Seg Neutrophils # Man Lymphocytes # (Manual) D-Dimer ABG pH POC ABG pO2 ABG pO2 ABG HCO3 ABG O2 Saturation ABG Base Excess ABG Oxyhemoglobin ABG Sodium ABG Chloride ABG Glucose Oxyhemoglobin Carboxyhemoglobin Sodium Potassium Chloride Carbon Dioxide BUN Creatinine Glucose POC Glucose 212 H 285 H 261 H Hemoglobin A1c Ferritin AST ALT Alkaline Phosphatase Lactate Dehydrogenase C-Reactive Protein Total Protein Albumin Arterial Blood Glucose Coronavirus (PCR) 05/10/21 05/10/21 05/11/21 17:58 18:02 00:29 WBC MCH MCHC RDW Lymph % (Auto) Lymph # (Auto) Baso # (Auto) Seg Neutrophils % Seg Neuts % (Manual) Lymphocytes % (Manual) Seg Neutrophils # Seg Neutrophils # Man Lymphocytes # (Manual) D-Dimer ABG pH POC ABG pO2 ABG pO2 ABG HCO3 ABG O2 Saturation ABG Base Excess ABG Oxyhemoglobin ABG Sodium ABG Chloride ABG Glucose Oxyhemoglobin Carboxyhemoglobin Sodium Potassium Chloride Carbon Dioxide BUN Creatinine Glucose POC Glucose 213 H 179 H 149 H Hemoglobin A1c Ferritin AST ALT Alkaline Phosphatase Lactate Dehydrogenase C-Reactive Protein Total Protein Albumin Arterial Blood Glucose Coronavirus (PCR) 05/11/21 05/11/21 05/11/21 05:22 11:32 17:00 WBC 14.9 H MCH MCHC RDW 18.9 H Lymph % (Auto) 4.9 L Lymph # (Auto) 0.7 L Baso # (Auto) 0.2 H Seg Neutrophils % Seg Neuts % (Manual) Lymphocytes % (Manual) Seg Neutrophils # 13.3 H Seg Neutrophils # Man Lymphocytes # (Manual) D-Dimer ABG pH POC ABG pO2 ABG pO2 ABG HCO3 ABG O2 Saturation ABG Base Excess ABG Oxyhemoglobin ABG Sodium ABG Chloride ABG Glucose Oxyhemoglobin Carboxyhemoglobin Sodium Potassium Chloride Carbon Dioxide BUN Creatinine Glucose POC Glucose 162 H 179 H Hemoglobin A1c Ferritin AST ALT Alkaline Phosphatase Lactate Dehydrogenase C-Reactive Protein Total Protein Albumin Arterial Blood Glucose Coronavirus (PCR) 05/11/21 05/11/21 05/11/21 17:00 17:33 22:03 WBC MCH MCHC RDW Lymph % (Auto) Lymph # (Auto) Baso # (Auto) Seg Neutrophils % Seg Neuts % (Manual) Lymphocytes % (Manual) Seg Neutrophils # Seg Neutrophils # Man Lymphocytes # (Manual) D-Dimer ABG pH POC ABG pO2 ABG pO2 ABG HCO3 ABG O2 Saturation ABG Base Excess ABG Oxyhemoglobin ABG Sodium ABG Chloride ABG Glucose Oxyhemoglobin Carboxyhemoglobin Sodium 135 L Potassium Chloride 97.3 L Carbon Dioxide BUN 21 H Creatinine 0.3 L Glucose 133 H POC Glucose 140 H 282 H Hemoglobin A1c Ferritin AST ALT 60 H Alkaline Phosphatase Lactate Dehydrogenase C-Reactive Protein Total Protein Albumin 3.1 L Arterial Blood Glucose Coronavirus (PCR) 05/12/21 05/12/21 05/12/21 04:05 04:05 04:05 WBC MCH MCHC RDW 18.4 H Lymph % (Auto) Lymph # (Auto) Baso # (Auto) Seg Neutrophils % Seg Neuts % (Manual) 94.0 H Lymphocytes % (Manual) 4.0 L Seg Neutrophils # Seg Neutrophils # Man Lymphocytes # (Manual) 0.3 L D-Dimer ABG pH POC ABG pO2 ABG pO2 ABG HCO3 ABG O2 Saturation ABG Base Excess ABG Oxyhemoglobin ABG Sodium ABG Chloride ABG Glucose Oxyhemoglobin Carboxyhemoglobin Sodium 136 L Potassium Chloride Carbon Dioxide BUN 18 H Creatinine 0.2 L Glucose 142 H POC Glucose Hemoglobin A1c Ferritin 350.7 H AST ALT Alkaline Phosphatase Lactate Dehydrogenase 546 H C-Reactive Protein Total Protein 6.1 L Albumin 3.0 L Arterial Blood Glucose Coronavirus (PCR) 05/12/21 05/12/21 05/12/21 05:11 11:17 16:27 WBC MCH MCHC RDW Lymph % (Auto) Lymph # (Auto) Baso # (Auto) Seg Neutrophils % Seg Neuts % (Manual) Lymphocytes % (Manual) Seg Neutrophils # Seg Neutrophils # Man Lymphocytes # (Manual) D-Dimer ABG pH POC ABG pO2 ABG pO2 ABG HCO3 ABG O2 Saturation ABG Base Excess ABG Oxyhemoglobin ABG Sodium ABG Chloride ABG Glucose Oxyhemoglobin Carboxyhemoglobin Sodium Potassium Chloride Carbon Dioxide BUN Creatinine Glucose POC Glucose 152 H 190 H 261 H Hemoglobin A1c Ferritin AST ALT Alkaline Phosphatase Lactate Dehydrogenase C-Reactive Protein Total Protein Albumin Arterial Blood Glucose Coronavirus (PCR) 05/12/21 05/13/21 05/13/21 20:55 11:08 21:41 WBC MCH MCHC RDW Lymph % (Auto) Lymph # (Auto) Baso # (Auto) Seg Neutrophils % Seg Neuts % (Manual) Lymphocytes % (Manual) Seg Neutrophils # Seg Neutrophils # Man Lymphocytes # (Manual) D-Dimer ABG pH POC ABG pO2 ABG pO2 ABG HCO3 ABG O2 Saturation ABG Base Excess ABG Oxyhemoglobin ABG Sodium ABG Chloride ABG Glucose Oxyhemoglobin Carboxyhemoglobin Sodium Potassium Chloride Carbon Dioxide BUN Creatinine Glucose POC Glucose 231 H 106 H 174 H Hemoglobin A1c Ferritin AST ALT Alkaline Phosphatase Lactate Dehydrogenase C-Reactive Protein Total Protein Albumin Arterial Blood Glucose Coronavirus (PCR) 05/14/21 05/14/21 05/14/21 00:53 02:23 06:06 WBC MCH MCHC RDW Lymph % (Auto) Lymph # (Auto) Baso # (Auto) Seg Neutrophils % Seg Neuts % (Manual) Lymphocytes % (Manual) Seg Neutrophils # Seg Neutrophils # Man Lymphocytes # (Manual) D-Dimer ABG pH POC ABG pO2 ABG pO2 130.3 H ABG HCO3 30.6 H ABG O2 Saturation ABG Base Excess 4.9 H ABG Oxyhemoglobin ABG Sodium ABG Chloride ABG Glucose Oxyhemoglobin Carboxyhemoglobin Sodium Potassium Chloride Carbon Dioxide BUN Creatinine Glucose POC Glucose 229 H 119 H Hemoglobin A1c Ferritin AST ALT Alkaline Phosphatase Lactate Dehydrogenase C-Reactive Protein Total Protein Albumin Arterial Blood Glucose Coronavirus (PCR) 05/14/21 05/14/21 05/14/21 07:13 07:13 07:13 WBC MCH MCHC RDW Lymph % (Auto) Lymph # (Auto) Baso # (Auto) Seg Neutrophils % Seg Neuts % (Manual) Lymphocytes % (Manual) Seg Neutrophils # Seg Neutrophils # Man Lymphocytes # (Manual) D-Dimer 712.80 H ABG pH POC ABG pO2 ABG pO2 ABG HCO3 ABG O2 Saturation ABG Base Excess ABG Oxyhemoglobin ABG Sodium ABG Chloride ABG Glucose Oxyhemoglobin Carboxyhemoglobin Sodium 133 L Potassium Chloride 95.5 L Carbon Dioxide 32 H BUN Creatinine 0.2 L Glucose 137 H POC Glucose Hemoglobin A1c Ferritin 283.5 H AST ALT 63 H Alkaline Phosphatase Lactate Dehydrogenase 563 H C-Reactive Protein Total Protein 6.1 L Albumin 3.0 L Arterial Blood Glucose Coronavirus (PCR) 05/14/21 05/14/21 05/14/21 12:21 15:33 21:50 WBC MCH MCHC RDW Lymph % (Auto) Lymph # (Auto) Baso # (Auto) Seg Neutrophils % Seg Neuts % (Manual) Lymphocytes % (Manual) Seg Neutrophils # Seg Neutrophils # Man Lymphocytes # (Manual) D-Dimer ABG pH POC ABG pO2 ABG pO2 ABG HCO3 ABG O2 Saturation ABG Base Excess ABG Oxyhemoglobin ABG Sodium ABG Chloride ABG Glucose Oxyhemoglobin Carboxyhemoglobin Sodium Potassium Chloride Carbon Dioxide BUN Creatinine Glucose POC Glucose 143 H 204 H 202 H Hemoglobin A1c Ferritin AST ALT Alkaline Phosphatase Lactate Dehydrogenase C-Reactive Protein Total Protein Albumin Arterial Blood Glucose Coronavirus (PCR) 05/15/21 05/15/21 05/15/21 05:05 11:12 16:39 WBC MCH MCHC RDW Lymph % (Auto) Lymph # (Auto) Baso # (Auto) Seg Neutrophils % Seg Neuts % (Manual) Lymphocytes % (Manual) Seg Neutrophils # Seg Neutrophils # Man Lymphocytes # (Manual) D-Dimer ABG pH POC ABG pO2 ABG pO2 ABG HCO3 ABG O2 Saturation ABG Base Excess ABG Oxyhemoglobin ABG Sodium ABG Chloride ABG Glucose Oxyhemoglobin Carboxyhemoglobin Sodium Potassium Chloride Carbon Dioxide BUN Creatinine Glucose POC Glucose 125 H 201 H 241 H Hemoglobin A1c Ferritin AST ALT Alkaline Phosphatase Lactate Dehydrogenase C-Reactive Protein Total Protein Albumin Arterial Blood Glucose Coronavirus (PCR) 05/15/21 05/16/21 05/16/21 21:31 05:04 10:40 WBC MCH MCHC RDW Lymph % (Auto) Lymph # (Auto) Baso # (Auto) Seg Neutrophils % Seg Neuts % (Manual) Lymphocytes % (Manual) Seg Neutrophils # Seg Neutrophils # Man Lymphocytes # (Manual) D-Dimer ABG pH POC ABG pO2 ABG pO2 ABG HCO3 ABG O2 Saturation ABG Base Excess ABG Oxyhemoglobin ABG Sodium ABG Chloride ABG Glucose Oxyhemoglobin Carboxyhemoglobin Sodium Potassium Chloride Carbon Dioxide BUN Creatinine Glucose POC Glucose 234 H 123 H 231 H Hemoglobin A1c Ferritin AST ALT Alkaline Phosphatase Lactate Dehydrogenase C-Reactive Protein Total Protein Albumin Arterial Blood Glucose Coronavirus (PCR) 05/16/21 05/16/21 05/17/21 18:23 21:29 06:20 WBC MCH MCHC RDW 18.8 H Lymph % (Auto) 10.2 L Lymph # (Auto) 0.8 L Baso # (Auto) Seg Neutrophils % 85.8 H Seg Neuts % (Manual) Lymphocytes % (Manual) Seg Neutrophils # Seg Neutrophils # Man Lymphocytes # (Manual) D-Dimer ABG pH POC ABG pO2 ABG pO2 ABG HCO3 ABG O2 Saturation ABG Base Excess ABG Oxyhemoglobin ABG Sodium ABG Chloride ABG Glucose Oxyhemoglobin Carboxyhemoglobin Sodium Potassium Chloride Carbon Dioxide BUN Creatinine Glucose POC Glucose 266 H 234 H Hemoglobin A1c Ferritin AST ALT Alkaline Phosphatase Lactate Dehydrogenase C-Reactive Protein Total Protein Albumin Arterial Blood Glucose Coronavirus (PCR) 05/17/21 05/17/2121 06:20 11:06 16:36 WBC MCH MCHC RDW Lymph % (Auto) Lymph # (Auto) Baso # (Auto) Seg Neutrophils % Seg Neuts % (Manual) Lymphocytes % (Manual) Seg Neutrophils # Seg Neutrophils # Man Lymphocytes # (Manual) D-Dimer ABG pH POC ABG pO2 ABG pO2 ABG HCO3 ABG O2 Saturation ABG Base Excess ABG Oxyhemoglobin ABG Sodium ABG Chloride ABG Glucose Oxyhemoglobin Carboxyhemoglobin Sodium Potassium Chloride Carbon Dioxide 33 H BUN Creatinine 0.2 L Glucose 101 H POC Glucose 209 H 180 H Hemoglobin A1c Ferritin AST ALT Alkaline Phosphatase Lactate Dehydrogenase C-Reactive Protein Total Protein Albumin Arterial Blood Glucose Coronavirus (PCR) 05/17/21 05/18/21 05/18/21 21:06 12:00 15:06 WBC MCH MCHC RDW Lymph % (Auto) Lymph # (Auto) Baso # (Auto) Seg Neutrophils % Seg Neuts % (Manual) Lymphocytes % (Manual) Seg Neutrophils # Seg Neutrophils # Man Lymphocytes # (Manual) D-Dimer 874.02 H ABG pH POC ABG pO2 ABG pO2 ABG HCO3 ABG O2 Saturation ABG Base Excess ABG Oxyhemoglobin ABG Sodium ABG Chloride ABG Glucose Oxyhemoglobin Carboxyhemoglobin Sodium Potassium Chloride Carbon Dioxide BUN Creatinine Glucose POC Glucose 256 H 139 H Hemoglobin A1c Ferritin AST ALT Alkaline Phosphatase Lactate Dehydrogenase C-Reactive Protein Total Protein Albumin Arterial Blood Glucose Coronavirus (PCR) 05/18/21 05/18/21 05/18/21 15:06 15:06 16:08 WBC MCH MCHC RDW Lymph % (Auto) Lymph # (Auto) Baso # (Auto) Seg Neutrophils % Seg Neuts % (Manual) Lymphocytes % (Manual) Seg Neutrophils # Seg Neutrophils # Man Lymphocytes # (Manual) D-Dimer ABG pH POC ABG pO2 ABG pO2 ABG HCO3 ABG O2 Saturation ABG Base Excess ABG Oxyhemoglobin ABG Sodium ABG Chloride ABG Glucose Oxyhemoglobin Carboxyhemoglobin Sodium Potassium Chloride Carbon Dioxide BUN Creatinine Glucose POC Glucose 178 H Hemoglobin A1c Ferritin 289.6 H AST ALT Alkaline Phosphatase Lactate Dehydrogenase 605 H C-Reactive Protein Total Protein Albumin Arterial Blood Glucose Coronavirus (PCR) 05/18/21 05/19/21 05/19/21 21:22 11:57 15:26 WBC MCH MCHC RDW Lymph % (Auto) Lymph # (Auto) Baso # (Auto) Seg Neutrophils % Seg Neuts % (Manual) Lymphocytes % (Manual) Seg Neutrophils # Seg Neutrophils # Man Lymphocytes # (Manual) D-Dimer ABG pH POC ABG pO2 ABG pO2 ABG HCO3 ABG O2 Saturation ABG Base Excess ABG Oxyhemoglobin ABG Sodium ABG Chloride ABG Glucose Oxyhemoglobin Carboxyhemoglobin Sodium Potassium Chloride Carbon Dioxide BUN Creatinine Glucose POC Glucose 241 H 201 H 209 H Hemoglobin A1c Ferritin AST ALT Alkaline Phosphatase Lactate Dehydrogenase C-Reactive Protein Total Protein Albumin Arterial Blood Glucose Coronavirus (PCR) 05/19/21 05/20/21 05/20/21 20:59 07:38 08:01 WBC MCH MCHC RDW 19.7 H Lymph % (Auto) 8.3 L Lymph # (Auto) 0.8 L Baso # (Auto) Seg Neutrophils % 88.6 H Seg Neuts % (Manual) Lymphocytes % (Manual) Seg Neutrophils # 8.4 H Seg Neutrophils # Man Lymphocytes # (Manual) D-Dimer ABG pH POC ABG pO2 ABG pO2 ABG HCO3 ABG O2 Saturation ABG Base Excess ABG Oxyhemoglobin ABG Sodium ABG Chloride ABG Glucose Oxyhemoglobin Carboxyhemoglobin Sodium Potassium Chloride Carbon Dioxide BUN Creatinine Glucose POC Glucose 226 H 130 H Hemoglobin A1c Ferritin AST ALT Alkaline Phosphatase Lactate Dehydrogenase C-Reactive Protein Total Protein Albumin Arterial Blood Glucose Coronavirus (PCR) 05/20/21 05/20/21 05/20/21 08:01 11:00 16:43 WBC MCH MCHC RDW Lymph % (Auto) Lymph # (Auto) Baso # (Auto) Seg Neutrophils % Seg Neuts % (Manual) Lymphocytes % (Manual) Seg Neutrophils # Seg Neutrophils # Man Lymphocytes # (Manual) D-Dimer ABG pH POC ABG pO2 ABG pO2 ABG HCO3 ABG O2 Saturation ABG Base Excess ABG Oxyhemoglobin ABG Sodium ABG Chloride ABG Glucose Oxyhemoglobin Carboxyhemoglobin Sodium Potassium Chloride Carbon Dioxide BUN 18 H Creatinine 0.2 L Glucose 132 H POC Glucose 237 H 240 H Hemoglobin A1c Ferritin AST ALT Alkaline Phosphatase Lactate Dehydrogenase C-Reactive Protein Total Protein Albumin Arterial Blood Glucose Coronavirus (PCR) 05/20/21 05/21/21 05/21/21 21:21 07:35 11:32 WBC MCH MCHC RDW Lymph % (Auto) Lymph # (Auto) Baso # (Auto) Seg Neutrophils % Seg Neuts % (Manual) Lymphocytes % (Manual) Seg Neutrophils # Seg Neutrophils # Man Lymphocytes # (Manual) D-Dimer ABG pH POC ABG pO2 ABG pO2 ABG HCO3 ABG O2 Saturation ABG Base Excess ABG Oxyhemoglobin ABG Sodium ABG Chloride ABG Glucose Oxyhemoglobin Carboxyhemoglobin Sodium Potassium Chloride Carbon Dioxide BUN Creatinine Glucose POC Glucose 241 H 162 H 171 H Hemoglobin A1c Ferritin AST ALT Alkaline Phosphatase Lactate Dehydrogenase C-Reactive Protein Total Protein Albumin Arterial Blood Glucose Coronavirus (PCR) 05/21/21 05/21/21 05/22/21 16:22 20:43 05:14 WBC MCH MCHC RDW Lymph % (Auto) Lymph # (Auto) Baso # (Auto) Seg Neutrophils % Seg Neuts % (Manual) Lymphocytes % (Manual) Seg Neutrophils # Seg Neutrophils # Man Lymphocytes # (Manual) D-Dimer ABG pH POC ABG pO2 ABG pO2 ABG HCO3 ABG O2 Saturation ABG Base Excess ABG Oxyhemoglobin ABG Sodium ABG Chloride ABG Glucose Oxyhemoglobin Carboxyhemoglobin Sodium Potassium Chloride Carbon Dioxide BUN Creatinine Glucose POC Glucose 244 H 299 H 140 H Hemoglobin A1c Ferritin AST ALT Alkaline Phosphatase Lactate Dehydrogenase C-Reactive Protein Total Protein Albumin Arterial Blood Glucose Coronavirus (PCR) 05/22/21 05/22/21 05/22/21 08:45 11:54 16:15 WBC MCH MCHC RDW Lymph % (Auto) Lymph # (Auto) Baso # (Auto) Seg Neutrophils % Seg Neuts % (Manual) Lymphocytes % (Manual) Seg Neutrophils # Seg Neutrophils # Man Lymphocytes # (Manual) D-Dimer ABG pH POC ABG pO2 ABG pO2 ABG HCO3 ABG O2 Saturation ABG Base Excess ABG Oxyhemoglobin ABG Sodium ABG Chloride ABG Glucose Oxyhemoglobin Carboxyhemoglobin Sodium Potassium Chloride Carbon Dioxide BUN Creatinine Glucose POC Glucose 133 H 265 H 221 H Hemoglobin A1c Ferritin AST ALT Alkaline Phosphatase Lactate Dehydrogenase C-Reactive Protein Total Protein Albumin Arterial Blood Glucose Coronavirus (PCR) 05/22/21 05/23/21 05/23/21 21:43 08:20 09:50 WBC MCH MCHC RDW Lymph % (Auto) Lymph # (Auto) Baso # (Auto) Seg Neutrophils % Seg Neuts % (Manual) Lymphocytes % (Manual) Seg Neutrophils # Seg Neutrophils # Man Lymphocytes # (Manual) D-Dimer 910.38 H ABG pH POC ABG pO2 ABG pO2 ABG HCO3 ABG O2 Saturation ABG Base Excess ABG Oxyhemoglobin ABG Sodium ABG Chloride ABG Glucose Oxyhemoglobin Carboxyhemoglobin Sodium Potassium Chloride Carbon Dioxide BUN Creatinine Glucose POC Glucose 262 H 140 H Hemoglobin A1c Ferritin AST ALT Alkaline Phosphatase Lactate Dehydrogenase C-Reactive Protein Total Protein Albumin Arterial Blood Glucose Coronavirus (PCR) 05/23/21 05/23/21 05/23/21 09:50 09:50 10:52 WBC MCH MCHC RDW Lymph % (Auto) Lymph # (Auto) Baso # (Auto) Seg Neutrophils % Seg Neuts % (Manual) Lymphocytes % (Manual) Seg Neutrophils # Seg Neutrophils # Man Lymphocytes # (Manual) D-Dimer ABG pH POC ABG pO2 ABG pO2 ABG HCO3 ABG O2 Saturation ABG Base Excess ABG Oxyhemoglobin ABG Sodium ABG Chloride ABG Glucose Oxyhemoglobin Carboxyhemoglobin Sodium Potassium Chloride Carbon Dioxide BUN Creatinine Glucose POC Glucose 241 H Hemoglobin A1c Ferritin 244.9 H AST ALT Alkaline Phosphatase Lactate Dehydrogenase 584 H C-Reactive Protein Total Protein Albumin Arterial Blood Glucose Coronavirus (PCR) 05/23/21 05/23/21 05/24/21 17:24 21:52 07:44 WBC MCH MCHC RDW Lymph % (Auto) Lymph # (Auto) Baso # (Auto) Seg Neutrophils % Seg Neuts % (Manual) Lymphocytes % (Manual) Seg Neutrophils # Seg Neutrophils # Man Lymphocytes # (Manual) D-Dimer ABG pH POC ABG pO2 ABG pO2 ABG HCO3 ABG O2 Saturation ABG Base Excess ABG Oxyhemoglobin ABG Sodium ABG Chloride ABG Glucose Oxyhemoglobin Carboxyhemoglobin Sodium Potassium Chloride Carbon Dioxide BUN Creatinine Glucose POC Glucose 197 H 289 H 161 H Hemoglobin A1c Ferritin AST ALT Alkaline Phosphatase Lactate Dehydrogenase C-Reactive Protein Total Protein Albumin Arterial Blood Glucose Coronavirus (PCR) 05/24/21 05/24/21 05/24/21 11:17 17:51 21:26 WBC MCH MCHC RDW Lymph % (Auto) Lymph # (Auto) Baso # (Auto) Seg Neutrophils % Seg Neuts % (Manual) Lymphocytes % (Manual) Seg Neutrophils # Seg Neutrophils # Man Lymphocytes # (Manual) D-Dimer ABG pH POC ABG pO2 ABG pO2 ABG HCO3 ABG O2 Saturation ABG Base Excess ABG Oxyhemoglobin ABG Sodium ABG Chloride ABG Glucose Oxyhemoglobin Carboxyhemoglobin Sodium Potassium Chloride Carbon Dioxide BUN Creatinine Glucose POC Glucose 308 H 175 H 198 H Hemoglobin A1c Ferritin AST ALT Alkaline Phosphatase Lactate Dehydrogenase C-Reactive Protein Total Protein Albumin Arterial Blood Glucose Coronavirus (PCR) 05/25/21 05/25/21 05/25/21 08:14 11:13 17:13 WBC MCH MCHC RDW Lymph % (Auto) Lymph # (Auto) Baso # (Auto) Seg Neutrophils % Seg Neuts % (Manual) Lymphocytes % (Manual) Seg Neutrophils # Seg Neutrophils # Man Lymphocytes # (Manual) D-Dimer ABG pH POC ABG pO2 ABG pO2 ABG HCO3 ABG O2 Saturation ABG Base Excess ABG Oxyhemoglobin ABG Sodium ABG Chloride ABG Glucose Oxyhemoglobin Carboxyhemoglobin Sodium Potassium Chloride Carbon Dioxide BUN Creatinine Glucose POC Glucose 203 H 339 H 235 H Hemoglobin A1c Ferritin AST ALT Alkaline Phosphatase Lactate Dehydrogenase C-Reactive Protein Total Protein Albumin Arterial Blood Glucose Coronavirus (PCR) 05/25/21 05/26/21 05/26/21 21:03 07:33 11:19 WBC MCH MCHC RDW Lymph % (Auto) Lymph # (Auto) Baso # (Auto) Seg Neutrophils % Seg Neuts % (Manual) Lymphocytes % (Manual) Seg Neutrophils # Seg Neutrophils # Man Lymphocytes # (Manual) D-Dimer ABG pH POC ABG pO2 ABG pO2 ABG HCO3 ABG O2 Saturation ABG Base Excess ABG Oxyhemoglobin ABG Sodium ABG Chloride ABG Glucose Oxyhemoglobin Carboxyhemoglobin Sodium Potassium Chloride Carbon Dioxide BUN Creatinine Glucose POC Glucose 263 H 156 H 288 H Hemoglobin A1c Ferritin AST ALT Alkaline Phosphatase Lactate Dehydrogenase C-Reactive Protein Total Protein Albumin Arterial Blood Glucose Coronavirus (PCR) 05/26/21 05/26/21 05/27/21 16:26 20:55 07:38 WBC MCH MCHC RDW Lymph % (Auto) Lymph # (Auto) Baso # (Auto) Seg Neutrophils % Seg Neuts % (Manual) Lymphocytes % (Manual) Seg Neutrophils # Seg Neutrophils # Man Lymphocytes # (Manual) D-Dimer ABG pH POC ABG pO2 ABG pO2 ABG HCO3 ABG O2 Saturation ABG Base Excess ABG Oxyhemoglobin ABG Sodium ABG Chloride ABG Glucose Oxyhemoglobin Carboxyhemoglobin Sodium Potassium Chloride Carbon Dioxide BUN Creatinine Glucose POC Glucose 286 H 293 H 115 H Hemoglobin A1c Ferritin AST ALT Alkaline Phosphatase Lactate Dehydrogenase C-Reactive Protein Total Protein Albumin Arterial Blood Glucose Coronavirus (PCR) 05/27/21 05/27/21 05/27/21 11:46 15:58 21:02 WBC MCH MCHC RDW Lymph % (Auto) Lymph # (Auto) Baso # (Auto) Seg Neutrophils % Seg Neuts % (Manual) Lymphocytes % (Manual) Seg Neutrophils # Seg Neutrophils # Man Lymphocytes # (Manual) D-Dimer ABG pH POC ABG pO2 ABG pO2 ABG HCO3 ABG O2 Saturation ABG Base Excess ABG Oxyhemoglobin ABG Sodium ABG Chloride ABG Glucose Oxyhemoglobin Carboxyhemoglobin Sodium Potassium Chloride Carbon Dioxide BUN Creatinine Glucose POC Glucose 260 H 318 H 246 H Hemoglobin A1c Ferritin AST ALT Alkaline Phosphatase Lactate Dehydrogenase C-Reactive Protein Total Protein Albumin Arterial Blood Glucose Coronavirus (PCR) 05/28/21 05/28/21 05/28/21 07:34 11:31 16:36 WBC MCH MCHC RDW Lymph % (Auto) Lymph # (Auto) Baso # (Auto) Seg Neutrophils % Seg Neuts % (Manual) Lymphocytes % (Manual) Seg Neutrophils # Seg Neutrophils # Man Lymphocytes # (Manual) D-Dimer ABG pH POC ABG pO2 ABG pO2 ABG HCO3 ABG O2 Saturation ABG Base Excess ABG Oxyhemoglobin ABG Sodium ABG Chloride ABG Glucose Oxyhemoglobin Carboxyhemoglobin Sodium Potassium Chloride Carbon Dioxide BUN Creatinine Glucose POC Glucose 185 H 297 H 183 H Hemoglobin A1c Ferritin AST ALT Alkaline Phosphatase Lactate Dehydrogenase C-Reactive Protein Total Protein Albumin Arterial Blood Glucose Coronavirus (PCR) 05/28/21 05/29/21 05/29/21 21:19 07:34 11:19 WBC MCH MCHC RDW Lymph % (Auto) Lymph # (Auto) Baso # (Auto) Seg Neutrophils % Seg Neuts % (Manual) Lymphocytes % (Manual) Seg Neutrophils # Seg Neutrophils # Man Lymphocytes # (Manual) D-Dimer ABG pH POC ABG pO2 ABG pO2 ABG HCO3 ABG O2 Saturation ABG Base Excess ABG Oxyhemoglobin ABG Sodium ABG Chloride ABG Glucose Oxyhemoglobin Carboxyhemoglobin Sodium Potassium Chloride Carbon Dioxide BUN Creatinine Glucose POC Glucose 274 H 139 H 293 H Hemoglobin A1c Ferritin AST ALT Alkaline Phosphatase Lactate Dehydrogenase C-Reactive Protein Total Protein Albumin Arterial Blood Glucose Coronavirus (PCR) 05/29/21 05/29/21 05/30/21 16:36 22:44 05:55 WBC MCH MCHC RDW 21.3 H Lymph % (Auto) 8.0 L Lymph # (Auto) 0.6 L Baso # (Auto) Seg Neutrophils % 88.6 H Seg Neuts % (Manual) Lymphocytes % (Manual) Seg Neutrophils # Seg Neutrophils # Man Lymphocytes # (Manual) D-Dimer ABG pH POC ABG pO2 ABG pO2 ABG HCO3 ABG O2 Saturation ABG Base Excess ABG Oxyhemoglobin ABG Sodium ABG Chloride ABG Glucose Oxyhemoglobin Carboxyhemoglobin Sodium Potassium Chloride Carbon Dioxide BUN Creatinine Glucose POC Glucose 299 H 160 H Hemoglobin A1c Ferritin AST ALT Alkaline Phosphatase Lactate Dehydrogenase C-Reactive Protein Total Protein Albumin Arterial Blood Glucose Coronavirus (PCR) 05/30/21 05/30/21 05/30/21 05:55 08:04 11:13 WBC MCH MCHC RDW Lymph % (Auto) Lymph # (Auto) Baso # (Auto) Seg Neutrophils % Seg Neuts % (Manual) Lymphocytes % (Manual) Seg Neutrophils # Seg Neutrophils # Man Lymphocytes # (Manual) D-Dimer ABG pH POC ABG pO2 ABG pO2 ABG HCO3 ABG O2 Saturation ABG Base Excess ABG Oxyhemoglobin ABG Sodium ABG Chloride ABG Glucose Oxyhemoglobin Carboxyhemoglobin Sodium Potassium Chloride Carbon Dioxide BUN 19 H Creatinine 0.2 L Glucose 209 H POC Glucose 157 H 275 H Hemoglobin A1c Ferritin AST ALT Alkaline Phosphatase Lactate Dehydrogenase C-Reactive Protein Total Protein Albumin Arterial Blood Glucose Coronavirus (PCR) 05/30/21 05/30/21 05/31/21 17:08 22:12 07:36 WBC MCH MCHC RDW Lymph % (Auto) Lymph # (Auto) Baso # (Auto) Seg Neutrophils % Seg Neuts % (Manual) Lymphocytes % (Manual) Seg Neutrophils # Seg Neutrophils # Man Lymphocytes # (Manual) D-Dimer ABG pH POC ABG pO2 ABG pO2 ABG HCO3 ABG O2 Saturation ABG Base Excess ABG Oxyhemoglobin ABG Sodium ABG Chloride ABG Glucose Oxyhemoglobin Carboxyhemoglobin Sodium Potassium Chloride Carbon Dioxide BUN Creatinine Glucose POC Glucose 154 H 275 H 138 H Hemoglobin A1c Ferritin AST ALT Alkaline Phosphatase Lactate Dehydrogenase C-Reactive Protein Total Protein Albumin Arterial Blood Glucose Coronavirus (PCR) 05/31/21 05/31/21 05/31/21 11:17 16:55 21:25 WBC MCH MCHC RDW Lymph % (Auto) Lymph # (Auto) Baso # (Auto) Seg Neutrophils % Seg Neuts % (Manual) Lymphocytes % (Manual) Seg Neutrophils # Seg Neutrophils # Man Lymphocytes # (Manual) D-Dimer ABG pH POC ABG pO2 ABG pO2 ABG HCO3 ABG O2 Saturation ABG Base Excess ABG Oxyhemoglobin ABG Sodium ABG Chloride ABG Glucose Oxyhemoglobin Carboxyhemoglobin Sodium Potassium Chloride Carbon Dioxide BUN Creatinine Glucose POC Glucose 258 H 215 H 318 H Hemoglobin A1c Ferritin AST ALT Alkaline Phosphatase Lactate Dehydrogenase C-Reactive Protein Total Protein Albumin Arterial Blood Glucose Coronavirus (PCR) 06/01/21 06/01/21 06/01/21 07:23 11:38 16:52 WBC MCH MCHC RDW Lymph % (Auto) Lymph # (Auto) Baso # (Auto) Seg Neutrophils % Seg Neuts % (Manual) Lymphocytes % (Manual) Seg Neutrophils # Seg Neutrophils # Man Lymphocytes # (Manual) D-Dimer ABG pH POC ABG pO2 ABG pO2 ABG HCO3 ABG O2 Saturation ABG Base Excess ABG Oxyhemoglobin ABG Sodium ABG Chloride ABG Glucose Oxyhemoglobin Carboxyhemoglobin Sodium Potassium Chloride Carbon Dioxide BUN Creatinine Glucose POC Glucose 157 H 259 H 150 H Hemoglobin A1c Ferritin AST ALT Alkaline Phosphatase Lactate Dehydrogenase C-Reactive Protein Total Protein Albumin Arterial Blood Glucose Coronavirus (PCR) 06/01/21 06/02/21 06/02/21 23:16 05:34 05:34 WBC MCH MCHC RDW 21.3 H Lymph % (Auto) 9.6 L Lymph # (Auto) 0.6 L Baso # (Auto) Seg Neutrophils % 86.2 H Seg Neuts % (Manual) Lymphocytes % (Manual) Seg Neutrophils # Seg Neutrophils # Man Lymphocytes # (Manual) D-Dimer ABG pH POC ABG pO2 ABG pO2 ABG HCO3 ABG O2 Saturation ABG Base Excess ABG Oxyhemoglobin ABG Sodium ABG Chloride ABG Glucose Oxyhemoglobin Carboxyhemoglobin Sodium 136 L Potassium Chloride Carbon Dioxide BUN Creatinine 0.2 L Glucose 186 H POC Glucose 247 H Hemoglobin A1c Ferritin AST ALT 69 H Alkaline Phosphatase Lactate Dehydrogenase C-Reactive Protein Total Protein 6.1 L Albumin 3.2 L Arterial Blood Glucose Coronavirus (PCR) 06/02/21 06/02/21 06/02/21 11:25 18:23 21:32 WBC MCH MCHC RDW Lymph % (Auto) Lymph # (Auto) Baso # (Auto) Seg Neutrophils % Seg Neuts % (Manual) Lymphocytes % (Manual) Seg Neutrophils # Seg Neutrophils # Man Lymphocytes # (Manual) D-Dimer ABG pH POC ABG pO2 ABG pO2 ABG HCO3 ABG O2 Saturation ABG Base Excess ABG Oxyhemoglobin ABG Sodium ABG Chloride ABG Glucose Oxyhemoglobin Carboxyhemoglobin Sodium Potassium Chloride Carbon Dioxide BUN Creatinine Glucose POC Glucose 157 H 299 H 246 H Hemoglobin A1c Ferritin AST ALT Alkaline Phosphatase Lactate Dehydrogenase C-Reactive Protein Total Protein Albumin Arterial Blood Glucose Coronavirus (PCR) 06/03/21 06/03/21 06/03/21 08:12 12:21 17:31 WBC MCH MCHC RDW Lymph % (Auto) Lymph # (Auto) Baso # (Auto) Seg Neutrophils % Seg Neuts % (Manual) Lymphocytes % (Manual) Seg Neutrophils # Seg Neutrophils # Man Lymphocytes # (Manual) D-Dimer ABG pH POC ABG pO2 ABG pO2 ABG HCO3 ABG O2 Saturation ABG Base Excess ABG Oxyhemoglobin ABG Sodium ABG Chloride ABG Glucose Oxyhemoglobin Carboxyhemoglobin Sodium Potassium Chloride Carbon Dioxide BUN Creatinine Glucose POC Glucose 153 H 302 H 252 H Hemoglobin A1c Ferritin AST ALT Alkaline Phosphatase Lactate Dehydrogenase C-Reactive Protein Total Protein Albumin Arterial Blood Glucose Coronavirus (PCR) 06/03/21 06/04/21 06/04/21 22:08 11:12 16:01 WBC MCH MCHC RDW Lymph % (Auto) Lymph # (Auto) Baso # (Auto) Seg Neutrophils % Seg Neuts % (Manual) Lymphocytes % (Manual) Seg Neutrophils # Seg Neutrophils # Man Lymphocytes # (Manual) D-Dimer ABG pH POC ABG pO2 ABG pO2 ABG HCO3 ABG O2 Saturation ABG Base Excess ABG Oxyhemoglobin ABG Sodium ABG Chloride ABG Glucose Oxyhemoglobin Carboxyhemoglobin Sodium Potassium Chloride Carbon Dioxide BUN Creatinine Glucose POC Glucose 224 H 259 H 238 H Hemoglobin A1c Ferritin AST ALT Alkaline Phosphatase Lactate Dehydrogenase C-Reactive Protein Total Protein Albumin Arterial Blood Glucose Coronavirus (PCR) 06/04/21 06/05/21 06/05/21 21:26 05:26 05:26 WBC MCH MCHC RDW Lymph % (Auto) Lymph # (Auto) Baso # (Auto) Seg Neutrophils % Seg Neuts % (Manual) Lymphocytes % (Manual) Seg Neutrophils # Seg Neutrophils # Man Lymphocytes # (Manual) D-Dimer 488.49 H ABG pH POC ABG pO2 ABG pO2 ABG HCO3 ABG O2 Saturation ABG Base Excess ABG Oxyhemoglobin ABG Sodium ABG Chloride ABG Glucose Oxyhemoglobin Carboxyhemoglobin Sodium Potassium Chloride Carbon Dioxide BUN Creatinine 0.2 L Glucose 198 H POC Glucose 257 H Hemoglobin A1c Ferritin AST ALT Alkaline Phosphatase Lactate Dehydrogenase 475 H C-Reactive Protein Total Protein Albumin Arterial Blood Glucose Coronavirus (PCR) 06/05/21 06/05/21 06/05/21 07:20 08:30 11:00 WBC MCH MCHC RDW Lymph % (Auto) Lymph # (Auto) Baso # (Auto) Seg Neutrophils % Seg Neuts % (Manual) Lymphocytes % (Manual) Seg Neutrophils # Seg Neutrophils # Man Lymphocytes # (Manual) D-Dimer ABG pH POC ABG pO2 ABG pO2 ABG HCO3 ABG O2 Saturation ABG Base Excess ABG Oxyhemoglobin ABG Sodium ABG Chloride ABG Glucose Oxyhemoglobin Carboxyhemoglobin Sodium Potassium Chloride Carbon Dioxide BUN Creatinine Glucose POC Glucose 146 H 246 H Hemoglobin A1c Ferritin AST ALT Alkaline Phosphatase Lactate Dehydrogenase C-Reactive Protein Total Protein Albumin Arterial Blood Glucose Coronavirus (PCR) Positive A 06/05/21 06/05/21 06/06/21 16:50 22:30 07:57 WBC MCH MCHC RDW Lymph % (Auto) Lymph # (Auto) Baso # (Auto) Seg Neutrophils % Seg Neuts % (Manual) Lymphocytes % (Manual) Seg Neutrophils # Seg Neutrophils # Man Lymphocytes # (Manual) D-Dimer ABG pH POC ABG pO2 ABG pO2 ABG HCO3 ABG O2 Saturation ABG Base Excess ABG Oxyhemoglobin ABG Sodium ABG Chloride ABG Glucose Oxyhemoglobin Carboxyhemoglobin Sodium Potassium Chloride Carbon Dioxide BUN Creatinine Glucose POC Glucose 240 H 174 H 120 H Hemoglobin A1c Ferritin AST ALT Alkaline Phosphatase Lactate Dehydrogenase C-Reactive Protein Total Protein Albumin Arterial Blood Glucose Coronavirus (PCR) 06/06/21 06/06/21 06/06/21 11:14 16:50 21:11 WBC MCH MCHC RDW Lymph % (Auto) Lymph # (Auto) Baso # (Auto) Seg Neutrophils % Seg Neuts % (Manual) Lymphocytes % (Manual) Seg Neutrophils # Seg Neutrophils # Man Lymphocytes # (Manual) D-Dimer ABG pH POC ABG pO2 ABG pO2 ABG HCO3 ABG O2 Saturation ABG Base Excess ABG Oxyhemoglobin ABG Sodium ABG Chloride ABG Glucose Oxyhemoglobin Carboxyhemoglobin Sodium Potassium Chloride Carbon Dioxide BUN Creatinine Glucose POC Glucose 267 H 218 H 124 H Hemoglobin A1c Ferritin AST ALT Alkaline Phosphatase Lactate Dehydrogenase C-Reactive Protein Total Protein Albumin Arterial Blood Glucose Coronavirus (PCR) 06/07/21 06/07/21 06/08/21 11:58 15:59 07:59 WBC MCH MCHC RDW Lymph % (Auto) Lymph # (Auto) Baso # (Auto) Seg Neutrophils % Seg Neuts % (Manual) Lymphocytes % (Manual) Seg Neutrophils # Seg Neutrophils # Man Lymphocytes # (Manual) D-Dimer ABG pH POC ABG pO2 ABG pO2 ABG HCO3 ABG O2 Saturation ABG Base Excess ABG Oxyhemoglobin ABG Sodium ABG Chloride ABG Glucose Oxyhemoglobin Carboxyhemoglobin Sodium Potassium Chloride Carbon Dioxide BUN Creatinine Glucose POC Glucose 219 H 208 H 192 H Hemoglobin A1c Ferritin AST ALT Alkaline Phosphatase Lactate Dehydrogenase C-Reactive Protein Total Protein Albumin Arterial Blood Glucose Coronavirus (PCR) 06/08/21 06/08/21 06/09/21 11:26 23:28 07:33 WBC MCH MCHC RDW Lymph % (Auto) Lymph # (Auto) Baso # (Auto) Seg Neutrophils % Seg Neuts % (Manual) Lymphocytes % (Manual) Seg Neutrophils # Seg Neutrophils # Man Lymphocytes # (Manual) D-Dimer ABG pH POC ABG pO2 ABG pO2 ABG HCO3 ABG O2 Saturation ABG Base Excess ABG Oxyhemoglobin ABG Sodium ABG Chloride ABG Glucose Oxyhemoglobin Carboxyhemoglobin Sodium Potassium Chloride Carbon Dioxide BUN Creatinine Glucose POC Glucose 307 H 138 H 145 H Hemoglobin A1c Ferritin AST ALT Alkaline Phosphatase Lactate Dehydrogenase C-Reactive Protein Total Protein Albumin Arterial Blood Glucose Coronavirus (PCR) 06/09/21 06/09/21 06/09/21 11:01 15:47 21:43 WBC MCH MCHC RDW Lymph % (Auto) Lymph # (Auto) Baso # (Auto) Seg Neutrophils % Seg Neuts % (Manual) Lymphocytes % (Manual) Seg Neutrophils # Seg Neutrophils # Man Lymphocytes # (Manual) D-Dimer ABG pH POC ABG pO2 ABG pO2 ABG HCO3 ABG O2 Saturation ABG Base Excess ABG Oxyhemoglobin ABG Sodium ABG Chloride ABG Glucose Oxyhemoglobin Carboxyhemoglobin Sodium Potassium Chloride Carbon Dioxide BUN Creatinine Glucose POC Glucose 266 H 305 H 223 H Hemoglobin A1c Ferritin AST ALT Alkaline Phosphatase Lactate Dehydrogenase C-Reactive Protein Total Protein Albumin Arterial Blood Glucose Coronavirus (PCR) 06/10/21 06/10/21 06/10/21 08:27 12:10 17:45 WBC MCH MCHC RDW Lymph % (Auto) Lymph # (Auto) Baso # (Auto) Seg Neutrophils % Seg Neuts % (Manual) Lymphocytes % (Manual) Seg Neutrophils # Seg Neutrophils # Man Lymphocytes # (Manual) D-Dimer ABG pH POC ABG pO2 ABG pO2 ABG HCO3 ABG O2 Saturation ABG Base Excess ABG Oxyhemoglobin ABG Sodium ABG Chloride ABG Glucose Oxyhemoglobin Carboxyhemoglobin Sodium Potassium Chloride Carbon Dioxide BUN Creatinine Glucose POC Glucose 174 H 306 H 210 H Hemoglobin A1c Ferritin AST ALT Alkaline Phosphatase Lactate Dehydrogenase C-Reactive Protein Total Protein Albumin Arterial Blood Glucose Coronavirus (PCR) 06/10/21 06/11/21 06/11/21 21:45 09:38 09:38 WBC MCH MCHC RDW 20.9 H Lymph % (Auto) Lymph # (Auto) Baso # (Auto) Seg Neutrophils % Seg Neuts % (Manual) Lymphocytes % (Manual) Seg Neutrophils # Seg Neutrophils # Man Lymphocytes # (Manual) D-Dimer ABG pH POC ABG pO2 ABG pO2 ABG HCO3 ABG O2 Saturation ABG Base Excess ABG Oxyhemoglobin ABG Sodium ABG Chloride ABG Glucose Oxyhemoglobin Carboxyhemoglobin Sodium 135 L Potassium Chloride 90.8 L Carbon Dioxide 36 H BUN 29 H Creatinine 0.2 L Glucose 258 H POC Glucose 262 H Hemoglobin A1c Ferritin AST ALT Alkaline Phosphatase Lactate Dehydrogenase C-Reactive Protein Total Protein Albumin Arterial Blood Glucose Coronavirus (PCR) 06/11/21 06/11/21 06/11/21 11:20 15:49 22:57 WBC MCH MCHC RDW Lymph % (Auto) Lymph # (Auto) Baso # (Auto) Seg Neutrophils % Seg Neuts % (Manual) Lymphocytes % (Manual) Seg Neutrophils # Seg Neutrophils # Man Lymphocytes # (Manual) D-Dimer ABG pH POC ABG pO2 ABG pO2 ABG HCO3 ABG O2 Saturation ABG Base Excess ABG Oxyhemoglobin ABG Sodium ABG Chloride ABG Glucose Oxyhemoglobin Carboxyhemoglobin Sodium Potassium Chloride Carbon Dioxide BUN Creatinine Glucose POC Glucose 269 H 206 H 211 H Hemoglobin A1c Ferritin AST ALT Alkaline Phosphatase Lactate Dehydrogenase C-Reactive Protein Total Protein Albumin Arterial Blood Glucose Coronavirus (PCR) 06/12/21 06/12/21 06/12/21 08:07 11:24 18:08 WBC MCH MCHC RDW Lymph % (Auto) Lymph # (Auto) Baso # (Auto) Seg Neutrophils % Seg Neuts % (Manual) Lymphocytes % (Manual) Seg Neutrophils # Seg Neutrophils # Man Lymphocytes # (Manual) D-Dimer ABG pH POC ABG pO2 ABG pO2 ABG HCO3 ABG O2 Saturation ABG Base Excess ABG Oxyhemoglobin ABG Sodium ABG Chloride ABG Glucose Oxyhemoglobin Carboxyhemoglobin Sodium Potassium Chloride Carbon Dioxide BUN Creatinine Glucose POC Glucose 149 H 270 H 166 H Hemoglobin A1c Ferritin AST ALT Alkaline Phosphatase Lactate Dehydrogenase C-Reactive Protein Total Protein Albumin Arterial Blood Glucose Coronavirus (PCR) 06/12/21 06/13/21 06/13/21 20:22 07:50 11:18 WBC MCH MCHC RDW Lymph % (Auto) Lymph # (Auto) Baso # (Auto) Seg Neutrophils % Seg Neuts % (Manual) Lymphocytes % (Manual) Seg Neutrophils # Seg Neutrophils # Man Lymphocytes # (Manual) D-Dimer ABG pH POC ABG pO2 ABG pO2 ABG HCO3 ABG O2 Saturation ABG Base Excess ABG Oxyhemoglobin ABG Sodium ABG Chloride ABG Glucose Oxyhemoglobin Carboxyhemoglobin Sodium Potassium Chloride Carbon Dioxide BUN Creatinine Glucose POC Glucose 155 H 163 H 293 H Hemoglobin A1c Ferritin AST ALT Alkaline Phosphatase Lactate Dehydrogenase C-Reactive Protein Total Protein Albumin Arterial Blood Glucose Coronavirus (PCR) 06/13/21 06/13/21 06/14/21 16:41 21:00 07:41 WBC MCH MCHC RDW Lymph % (Auto) Lymph # (Auto) Baso # (Auto) Seg Neutrophils % Seg Neuts % (Manual) Lymphocytes % (Manual) Seg Neutrophils # Seg Neutrophils # Man Lymphocytes # (Manual) D-Dimer ABG pH POC ABG pO2 ABG pO2 ABG HCO3 ABG O2 Saturation ABG Base Excess ABG Oxyhemoglobin ABG Sodium ABG Chloride ABG Glucose Oxyhemoglobin Carboxyhemoglobin Sodium Potassium Chloride Carbon Dioxide BUN Creatinine Glucose POC Glucose 232 H 183 H 52 L Hemoglobin A1c Ferritin AST ALT Alkaline Phosphatase Lactate Dehydrogenase C-Reactive Protein Total Protein Albumin Arterial Blood Glucose Coronavirus (PCR) 06/14/21 06/14/21 06/14/21 11:44 17:44 21:44 WBC MCH MCHC RDW Lymph % (Auto) Lymph # (Auto) Baso # (Auto) Seg Neutrophils % Seg Neuts % (Manual) Lymphocytes % (Manual) Seg Neutrophils # Seg Neutrophils # Man Lymphocytes # (Manual) D-Dimer ABG pH POC ABG pO2 ABG pO2 ABG HCO3 ABG O2 Saturation ABG Base Excess ABG Oxyhemoglobin ABG Sodium ABG Chloride ABG Glucose Oxyhemoglobin Carboxyhemoglobin Sodium Potassium Chloride Carbon Dioxide BUN Creatinine Glucose POC Glucose 205 H 293 H 288 H Hemoglobin A1c Ferritin AST ALT Alkaline Phosphatase Lactate Dehydrogenase C-Reactive Protein Total Protein Albumin Arterial Blood Glucose Coronavirus (PCR) 06/15/21 06/15/21 06/15/21 08:00 08:00 11:40 WBC MCH 33 H MCHC 35 H RDW 20.3 H Lymph % (Auto) Lymph # (Auto) Baso # (Auto) Seg Neutrophils % Seg Neuts % (Manual) Lymphocytes % (Manual) Seg Neutrophils # Seg Neutrophils # Man Lymphocytes # (Manual) D-Dimer ABG pH POC ABG pO2 ABG pO2 ABG HCO3 ABG O2 Saturation ABG Base Excess ABG Oxyhemoglobin ABG Sodium ABG Chloride ABG Glucose Oxyhemoglobin Carboxyhemoglobin Sodium Potassium 3.2 L Chloride 95.3 L Carbon Dioxide 32 H BUN 23 H Creatinine 0.2 L Glucose 103 H POC Glucose 204 H Hemoglobin A1c Ferritin AST ALT Alkaline Phosphatase Lactate Dehydrogenase C-Reactive Protein Total Protein Albumin Arterial Blood Glucose Coronavirus (PCR) 06/15/21 06/15/21 06/16/21 16:17 22:00 11:43 WBC MCH MCHC RDW Lymph % (Auto) Lymph # (Auto) Baso # (Auto) Seg Neutrophils % Seg Neuts % (Manual) Lymphocytes % (Manual) Seg Neutrophils # Seg Neutrophils # Man Lymphocytes # (Manual) D-Dimer ABG pH POC ABG pO2 ABG pO2 ABG HCO3 ABG O2 Saturation ABG Base Excess ABG Oxyhemoglobin ABG Sodium ABG Chloride ABG Glucose Oxyhemoglobin Carboxyhemoglobin Sodium Potassium Chloride Carbon Dioxide BUN Creatinine Glucose POC Glucose 295 H 233 H 201 H Hemoglobin A1c Ferritin AST ALT Alkaline Phosphatase Lactate Dehydrogenase C-Reactive Protein Total Protein Albumin Arterial Blood Glucose Coronavirus (PCR) 06/16/21 06/16/21 06/17/21 17:21 21:27 07:12 WBC MCH MCHC RDW Lymph % (Auto) Lymph # (Auto) Baso # (Auto) Seg Neutrophils % Seg Neuts % (Manual) Lymphocytes % (Manual) Seg Neutrophils # Seg Neutrophils # Man Lymphocytes # (Manual) D-Dimer ABG pH POC ABG pO2 ABG pO2 ABG HCO3 ABG O2 Saturation ABG Base Excess ABG Oxyhemoglobin ABG Sodium ABG Chloride ABG Glucose Oxyhemoglobin Carboxyhemoglobin Sodium Potassium Chloride Carbon Dioxide BUN Creatinine Glucose POC Glucose 299 H 290 H 67 L Hemoglobin A1c Ferritin AST ALT Alkaline Phosphatase Lactate Dehydrogenase C-Reactive Protein Total Protein Albumin Arterial Blood Glucose Coronavirus (PCR) 06/17/21 06/17/21 06/17/21 11:53 17:02 22:25 WBC MCH MCHC RDW Lymph % (Auto) Lymph # (Auto) Baso # (Auto) Seg Neutrophils % Seg Neuts % (Manual) Lymphocytes % (Manual) Seg Neutrophils # Seg Neutrophils # Man Lymphocytes # (Manual) D-Dimer ABG pH POC ABG pO2 ABG pO2 ABG HCO3 ABG O2 Saturation ABG Base Excess ABG Oxyhemoglobin ABG Sodium ABG Chloride ABG Glucose Oxyhemoglobin Carboxyhemoglobin Sodium Potassium Chloride Carbon Dioxide BUN Creatinine Glucose POC Glucose 199 H 362 H 235 H Hemoglobin A1c Ferritin AST ALT Alkaline Phosphatase Lactate Dehydrogenase C-Reactive Protein Total Protein Albumin Arterial Blood Glucose Coronavirus (PCR) 06/18/21 06/18/21 06/18/21 08:00 11:48 16:40 WBC MCH MCHC RDW Lymph % (Auto) Lymph # (Auto) Baso # (Auto) Seg Neutrophils % Seg Neuts % (Manual) Lymphocytes % (Manual) Seg Neutrophils # Seg Neutrophils # Man Lymphocytes # (Manual) D-Dimer ABG pH POC ABG pO2 ABG pO2 ABG HCO3 ABG O2 Saturation ABG Base Excess ABG Oxyhemoglobin ABG Sodium ABG Chloride ABG Glucose Oxyhemoglobin Carboxyhemoglobin Sodium Potassium Chloride Carbon Dioxide BUN Creatinine Glucose POC Glucose 62 L 211 H 305 H Hemoglobin A1c Ferritin AST ALT Alkaline Phosphatase Lactate Dehydrogenase C-Reactive Protein Total Protein Albumin Arterial Blood Glucose Coronavirus (PCR) 06/18/21 06/19/21 06/19/21 21:26 07:27 11:32 WBC MCH MCHC RDW Lymph % (Auto) Lymph # (Auto) Baso # (Auto) Seg Neutrophils % Seg Neuts % (Manual) Lymphocytes % (Manual) Seg Neutrophils # Seg Neutrophils # Man Lymphocytes # (Manual) D-Dimer ABG pH POC ABG pO2 ABG pO2 ABG HCO3 ABG O2 Saturation ABG Base Excess ABG Oxyhemoglobin ABG Sodium ABG Chloride ABG Glucose Oxyhemoglobin Carboxyhemoglobin Sodium Potassium Chloride Carbon Dioxide BUN Creatinine Glucose POC Glucose 149 H 60 L 208 H Hemoglobin A1c Ferritin AST ALT Alkaline Phosphatase Lactate Dehydrogenase C-Reactive Protein Total Protein Albumin Arterial Blood Glucose Coronavirus (PCR) 06/19/21 06/19/21 06/20/21 16:06 22:28 07:48 WBC MCH MCHC RDW Lymph % (Auto) Lymph # (Auto) Baso # (Auto) Seg Neutrophils % Seg Neuts % (Manual) Lymphocytes % (Manual) Seg Neutrophils # Seg Neutrophils # Man Lymphocytes # (Manual) D-Dimer ABG pH POC ABG pO2 ABG pO2 ABG HCO3 ABG O2 Saturation ABG Base Excess ABG Oxyhemoglobin ABG Sodium ABG Chloride ABG Glucose Oxyhemoglobin Carboxyhemoglobin Sodium Potassium Chloride Carbon Dioxide BUN Creatinine Glucose POC Glucose 266 H 166 H 58 L Hemoglobin A1c Ferritin AST ALT Alkaline Phosphatase Lactate Dehydrogenase C-Reactive Protein Total Protein Albumin Arterial Blood Glucose Coronavirus (PCR) 06/20/21 06/20/21 06/20/21 09:09 11:04 16:01 WBC MCH MCHC RDW Lymph % (Auto) Lymph # (Auto) Baso # (Auto) Seg Neutrophils % Seg Neuts % (Manual) Lymphocytes % (Manual) Seg Neutrophils # Seg Neutrophils # Man Lymphocytes # (Manual) D-Dimer ABG pH POC ABG pO2 ABG pO2 ABG HCO3 ABG O2 Saturation ABG Base Excess ABG Oxyhemoglobin ABG Sodium ABG Chloride ABG Glucose Oxyhemoglobin Carboxyhemoglobin Sodium Potassium Chloride Carbon Dioxide BUN Creatinine Glucose POC Glucose 146 H 225 H 330 H Hemoglobin A1c Ferritin AST ALT Alkaline Phosphatase Lactate Dehydrogenase C-Reactive Protein Total Protein Albumin Arterial Blood Glucose Coronavirus (PCR) 06/20/21 06/21/21 06/21/21 20:46 06:45 06:45 WBC MCH MCHC RDW 20.0 H Lymph % (Auto) Lymph # (Auto) Baso # (Auto) Seg Neutrophils % Seg Neuts % (Manual) Lymphocytes % (Manual) Seg Neutrophils # Seg Neutrophils # Man Lymphocytes # (Manual) D-Dimer ABG pH POC ABG pO2 ABG pO2 ABG HCO3 ABG O2 Saturation ABG Base Excess ABG Oxyhemoglobin ABG Sodium ABG Chloride ABG Glucose Oxyhemoglobin Carboxyhemoglobin Sodium Potassium 2.9 L* Chloride 95.0 L Carbon Dioxide 31 H BUN 23 H Creatinine 0.2 L Glucose 45 L POC Glucose 215 H Hemoglobin A1c Ferritin AST ALT Alkaline Phosphatase Lactate Dehydrogenase C-Reactive Protein Total Protein Albumin Arterial Blood Glucose Coronavirus (PCR) 06/21/21 06/21/21 06/21/21 07:38 09:06 12:40 WBC MCH MCHC RDW Lymph % (Auto) Lymph # (Auto) Baso # (Auto) Seg Neutrophils % Seg Neuts % (Manual) Lymphocytes % (Manual) Seg Neutrophils # Seg Neutrophils # Man Lymphocytes # (Manual) D-Dimer ABG pH POC ABG pO2 ABG pO2 ABG HCO3 ABG O2 Saturation ABG Base Excess ABG Oxyhemoglobin ABG Sodium ABG Chloride ABG Glucose Oxyhemoglobin Carboxyhemoglobin Sodium Potassium Chloride Carbon Dioxide BUN Creatinine Glucose POC Glucose 50 L 196 H 205 H Hemoglobin A1c Ferritin AST ALT Alkaline Phosphatase Lactate Dehydrogenase C-Reactive Protein Total Protein Albumin Arterial Blood Glucose Coronavirus (PCR) 06/21/21 06/22/21 06/22/21 21:36 06:25 07:15 WBC MCH MCHC RDW Lymph % (Auto) Lymph # (Auto) Baso # (Auto) Seg Neutrophils % Seg Neuts % (Manual) Lymphocytes % (Manual) Seg Neutrophils # Seg Neutrophils # Man Lymphocytes # (Manual) D-Dimer ABG pH POC ABG pO2 ABG pO2 ABG HCO3 ABG O2 Saturation ABG Base Excess ABG Oxyhemoglobin ABG Sodium ABG Chloride ABG Glucose Oxyhemoglobin Carboxyhemoglobin Sodium Potassium Chloride Carbon Dioxide BUN 20 H Creatinine 0.2 L Glucose POC Glucose 245 H 66 L Hemoglobin A1c Ferritin AST ALT Alkaline Phosphatase Lactate Dehydrogenase C-Reactive Protein Total Protein Albumin Arterial Blood Glucose Coronavirus (PCR)
[2021-06-22] MEDS: clonazePAM 0.5 MG TAB PO PRN (14:29)
[2021-06-22] MEDS: ENOXAPARIN 40 MG/0.4 ML INJ SUB-Q SCH (22:04)
[2021-06-22] MEDS: SENNOSIDES 8.6 MG TAB PO SCH (22:09)
[2021-06-22] MEDS: ZOLPIDEM 5 MG TAB PO PRN (22:24)
[2021-06-23] MEDS: INSULIN LISPRO 100 UNIT/ML SUB-Q SCH ×4 (08:37→23:06)
[2021-06-23] MEDS: INSULIN GLARGINE 100 UNITS/ML SUB-Q SCH (09:30)
[2021-06-23] MEDS: ASCORBIC ACID 500 MG TAB PO SCH (10:25)
[2021-06-23] MEDS: CHOLECALCIFEROL (VIT D3) 1000 UNIT (25 mcg) TAB PO SCH (10:25)
[2021-06-23] MEDS: predniSONE 20 MG TAB PO SCH (10:25)
[2021-06-23] MEDS: ZINC SULFATE 220 MG CAP PO SCH ×2 (10:25→22:06)
[2021-06-23] MEDS: DOCUSATE SODIUM 100 MG CAP PO SCH ×2 (10:25→22:06)
[2021-06-23] MEDS: clonazePAM 0.5 MG TAB PO PRN (10:26)
[2021-06-23] MEDS: FUROSEMIDE 40 MG/4 ML INJ IV SCH (10:26)
--- NOTE | 2021-06-23 10:59 | Progress Note ---
Assessment and Plan - Patient Problems (1) Acute hypoxemic respiratory failure Current Visit: Yes Status: Acute Plan to address problem: Supplemental oxygen, pulse oximetry, nebulizer therapy, proposition while in bed, noninvasive positive pressure ventilation as clinically indicated. If patient is unable to maintain pulse oximetry will consider high flow supplemental oxygen. (2) Pneumonia Current Visit: Yes Status: Acute Qualifiers: Aspiration pneumonia type: unspecified Laterality: unspecified laterality Lung location: unspecified part of lung Plan to address problem: Pneumonia protocol: Chest x-ray, CBC, CMP, IV antibiotic therapy, blood culture. (3) Coronavirus infection Current Visit: Yes Status: Acute Plan to address problem: Supportive care, infectious disease service consulted. Continue medical management. (4) DVT prophylaxis Current Visit: Yes Status: Acute Plan to address problem: SCD to bilateral lower extremities while in bed, prophylactic anticoagulation History Interval history: 50 YO Female with Acute/Chronic respiratory failure secondary to coronavirus infection complicated by sepsis. Patient acknowledges shortness of breath and continues to require high flow supplemental oxygen support. Continue current therapy, patient resting comfortably. Patient denies pain. No reported nursing events overnight. No significant improvement in patient clinical status. Hospitalist Physical - Constitutional Vitals: Temp Pulse Resp BP Pulse Ox 98.1 F 116 H 19 131/76 90 06/23/21 10:32 06/23/21 10:32 06/23/21 10:32 06/23/21 10:32 06/23/21 10:32 General appearance: Present: mild distress, well-nourished - EENT Eyes: Present: PERRL ENT: hearing intact - Neck Neck: Present: supple - Respiratory Respiratory effort: labored Respiratory: bilateral: diminished, rhonchi - Cardiovascular Rhythm: regular Heart Sounds: Present: S1 & S2 - Extremities Extremities: no ischemia Peripheral Pulses: within normal limits - Abdominal General gastrointestinal: soft, non-tender, non-distended - Integumentary Integumentary: Present: clear, dry - Psychiatric Psychiatric: cooperative - Neurologic Neurologic: CNII-XII intact Results - Labs CBC & Chem 7: 06/21/21 06:45 06/22/21 06:25 Labs: Laboratory Last Values WBC 9.2 K/mm3 (4.5-11.0) 06/21/21 06:45 RBC 4.26 M/mm3 (3.65-5.03) 06/21/21 06:45 Hgb 13.5 gm/dl (10.1-14.3) 06/21/21 06:45 Hct 40.1 % (30.3-42.9) 06/21/21 06:45 MCV 94 fl (79-97) 06/21/21 06:45 MCH 32 pg (28-32) 06/21/21 06:45 MCHC 34 % (30-34) 06/21/21 06:45 RDW 20.0 % (13.2-15.2) H 06/21/21 06:45 Plt Count 285 K/mm3 (140-440) 06/21/21 06:45 Lymph % (Auto) 30.3 % (13.4-35.0) 06/21/21 06:45 [place] % (Auto) 6.5 % (0.0-7.3) 06/21/21 06:45 Eos % (Auto) 0.7 % (0.0-4.3) 06/21/21 06:45 Baso % (Auto) 0.5 % (0.0-1.8) 06/21/21 06:45 Lymph # (Auto) 2.8 K/mm3 (1.2-5.4) 06/21/21 06:45 [place] # (Auto) 0.6 K/mm3 (0.0-0.8) 06/21/21 06:45 Eos # (Auto) 0.1 K/mm3 (0.0-0.4) 06/21/21 06:45 Baso # (Auto) 0.0 K/mm3 (0.0-0.1) 06/21/21 06:45 Add Manual Diff Complete 05/12/21 04:05 Total Counted 100 05/12/21 04:05 Seg Neutrophils % 62.0 % (40.0-70.0) 06/21/21 06:45 Seg Neuts % (Manual) 94.0 % (40.0-70.0) H 05/12/21 04:05 Band Neutrophils % 1.0 % 05/12/21 04:05 Lymphocytes % (Manual) 4.0 % (13.4-35.0) L 05/12/21 04:05 Monocytes % (Manual) 1.0 % (0.0-7.3) 05/12/21 04:05 Nucleated RBC % Not Reportable 05/12/21 04:05 Seg Neutrophils # 5.7 K/mm3 (1.8-7.7) 06/21/21 06:45 Seg Neutrophils # Man 6.4 K/mm3 (1.8-7.7) 05/12/21 04:05 Band Neutrophils # 0.1 K/mm3 05/12/21 04:05 Lymphocytes # (Manual) 0.3 K/mm3 (1.2-5.4) L 05/12/21 04:05 Abs React Lymphs (Man) 0.0 K/mm3 05/12/21 04:05 Monocytes # (Manual) 0.1 K/mm3 (0.0-0.8) 05/12/21 04:05 Eosinophils # (Manual) 0.0 K/mm3 (0.0-0.4) 05/12/21 04:05 Basophils # (Manual) 0.0 K/mm3 (0.0-0.1) 05/12/21 04:05 Metamyelocytes # 0.0 K/mm3 05/12/21 04:05 Myelocytes # 0.0 K/mm3 05/12/21 04:05 Promyelocytes # 0.0 K/mm3 05/12/21 04:05 Blast Cells # 0.0 K/mm3 05/12/21 04:05 WBC Morphology Not Reportable 05/12/21 04:05 Hypersegmented Neuts Not Reportable 05/12/21 04:05 Hyposegmented Neuts Not Reportable 05/12/21 04:05 Hypogranular Neuts Not Reportable 05/12/21 04:05 Smudge Cells Not Reportable 05/12/21 04:05 Toxic Granulation Not Reportable 05/12/21 04:05 Toxic Vacuolation Not Reportable 05/12/21 04:05 Dohle Bodies Not Reportable 05/12/21 04:05 Pelger-Huet Anomaly Not Reportable 05/12/21 04:05 Janelle Rods Not Reportable 05/12/21 04:05 Platelet Estimate Consistent w auto 05/12/21 04:05 Clumped Platelets Not Reportable 05/12/21 04:05 Plt Clumps, EDTA Not Reportable 05/12/21 04:05 Large Platelets Not Reportable 05/12/21 04:05 Giant Platelets Not Reportable 05/12/21 04:05 Platelet Satelliting Not Reportable 05/12/21 04:05 Plt Morphology Comment Not Reportable 05/12/21 04:05 RBC Morphology Normal 05/12/21 04:05 Dimorphic RBCs Not Reportable 05/12/21 04:05 Polychromasia Not Reportable 05/12/21 04:05 Hypochromasia Not Reportable 05/12/21 04:05 Poikilocytosis Not Reportable 05/12/21 04:05 Anisocytosis Not Reportable 05/12/21 04:05 Microcytosis Not Reportable 05/12/21 04:05 Macrocytosis Not Reportable 05/12/21 04:05 Spherocytes Not Reportable 05/12/21 04:05 Pappenheimer Bodies Not Reportable 05/12/21 04:05 Sickle Cells Not Reportable 05/12/21 04:05 Target Cells Not Reportable 05/12/21 04:05 Tear Drop Cells Not Reportable 05/12/21 04:05 Ovalocytes Not Reportable 05/12/21 04:05 Helmet Cells Not Reportable 05/12/21 04:05 [place] Bodies Not Reportable 05/12/21 04:05 [place] Rings Not Reportable 05/12/21 04:05 Bronte Cells Not Reportable 05/12/21 04:05 Bite Cells Not Reportable 05/12/21 04:05 Crenated Cell Not Reportable 05/12/21 04:05 Elliptocytes Not Reportable 05/12/21 04:05 Acanthocytes (Spur) Not Reportable 05/12/21 04:05 Rouleaux Not Reportable 05/12/21 04:05 Hemoglobin C Crystals Not Reportable 05/12/21 04:05 Schistocytes Not Reportable 05/12/21 04:05 Malaria parasites Not Reportable 05/12/21 04:05 Justin Bodies Not Reportable 05/12/21 04:05 Hem Pathologist Commnt No 05/12/21 04:05 D-Dimer 488.49 ng/mlDDU (0-234) H 06/05/21 05:26 ABG pH 7.403 pH Units (7.350-7.450) 05/14/21 02:23 POC ABG pCO2 45.4 mmHg (32.0-48.0) 05/03/21 04:49 ABG pCO2 50.2 mm Hg 05/14/21 02:23 POC ABG pO2 65.3 mmHg (83-108) L 05/03/21 04:49 ABG pO2 130.3 mm Hg (80.0-90.0) H 05/14/21 02:23 POC ABG HCO3 18.5 05/03/21 04:49 ABG HCO3 30.6 mmol/L (20.0-26.0) H 05/14/21 02:23 ABG O2 Saturation 98.5 % (95.0-99.0) 05/14/21 02:23 ABG O2 Content 17.9 (0.0-44) 05/14/21 02:23 POC ABG Base Excess -8.9 05/03/21 04:49 ABG Base Excess 4.9 mmol/L (-2.0-3.0) H 05/14/21 02:23 ABG Hemoglobin 13.0 gm/dl (12.0-16.0) 05/14/21 02:23 ABG Oxyhemoglobin 87.8 (94-98) L 05/03/21 04:49 ABG Carboxyhemoglobin 1.4 % (0.0-5.0) 05/14/21 02:23 ABG Methemoglobin 0.6 % (0.0-1.5) 05/14/21 02:23 ABG Sodium 133.0 mmol/L (136.0-145.0) L 05/03/21 04:49 ABG Potassium 3.9 mmol/L (3.40-4.50) 05/03/21 04:49 ABG Chloride 97.0 mmol/L (98-107) L 05/03/21 04:49 ABG Glucose 403 mg/dL (65-95) H 05/03/21 04:49 Oxyhemoglobin 96.5 % (95.0-99.0) 05/14/21 02:23 Carboxyhemoglobin 0.6 (0.5-1.5) 05/03/21 04:49 FiO2 90 % 05/14/21 02:23 FiO2 % 100.0 05/03/21 04:49 Sodium 142 mmol/L (137-145) 06/22/21 06:25 Potassium 4.3 mmol/L (3.6-5.0) D 06/22/21 06:25 Chloride 101.7 mmol/L (98-107) 06/22/21 06:25 Carbon Dioxide 30 mmol/L (22-30) 06/22/21 06:25 Anion Gap 15 mmol/L 06/22/21 06:25 BUN 20 mg/dL (7-17) H 06/22/21 06:25 Creatinine 0.2 mg/dL (0.6-1.2) L 06/22/21 06:25 Estimated GFR > 60 ml/min 06/22/21 06:25 BUN/Creatinine Ratio 100 % 06/22/21 06:25 Glucose 75 mg/dL (65-100) 06/22/21 06:25 POC Glucose 218 mg/dL (70-105) H 06/23/21 10:34 Hemoglobin A1c 8.5 % (4-6) H 04/18/21 07:36 Calcium 9.0 mg/dL (8.4-10.2) 06/22/21 06:25 Phosphorus 3.60 mg/dL (2.5-4.5) 05/06/21 05:00 Magnesium 2.00 mg/dL (1.7-2.3) 05/06/21 05:00 Ferritin 187.7 ng/mL (10.0-200.0) 06/05/21 05:26 Total Bilirubin 0.30 mg/dL (0.1-1.2) 06/02/21 05:34 AST 22 units/L (5-40) 06/02/21 05:34 ALT 69 units/L (7-56) H 06/02/21 05:34 Alkaline Phosphatase 66 units/L (35-129) 06/02/21 05:34 Lactate Dehydrogenase 475 units/L (91-180) H 06/05/21 05:26 C-Reactive Protein 0.10 mg/dL (0.00-1.30) 06/05/21 05:26 Total Protein 6.1 g/dL (6.3-8.2) L 06/02/21 05:34 Albumin 3.2 g/dL (3.9-5) L 06/02/21 05:34 Albumin/Globulin Ratio 1.1 % 06/02/21 05:34 Triglycerides < 9 mg/dL (2-149) 05/03/21 04:30 Procalcitonin < 0.05 ng/mL (<0.15) 05/23/21 09:50 Arterial Blood Glucose 403 mg/dL (65-95) H 05/03/21 04:49 Arterial Blood Ionized Calcium 4.9 mg/dL (4.6-5.3) 05/03/21 04:49 Coronavirus (PCR) Positive (Negative) A 06/05/21 08:30 Amos/IV: Voiding Method Bedside Commode Active Medications - Current Medications Current Medications: Generic Name Dose Route Start Last Admin Trade Name Freq PRN Reason Stop Dose Admin Acetaminophen 650 mg 04/16/21 14:00 06/20/21 10:18 Acetaminophen 325 Mg Tab PO 650 mg Q4H PRN Administration Pain MILD(1-3)/Fever >100.5/[place] Albuterol 2.5 mg 04/16/21 13:39 04/21/21 20:39 Albuterol 2.5 Mg/3 Ml Nebu IH 2.5 mg Q4HRT PRN Administration Shortness Of Breath Artificial Tears 2 drops 04/28/21 18:15 05/29/21 13:25 Hypromellose 0.5% Ophth Soln 15 Ml OU 2 drops Q4H PRN Administration Dry Eye(s) Ascorbic Acid 500 mg 04/24/21 10:00 06/23/21 10:25 Ascorbic Acid 500 Mg Tab PO 500 mg QDAY TUTU Administration Bisacodyl 10 mg 06/10/21 18:00 Bisacodyl 10 Mg Rect Supp OK QDAY PRN Constipation Cholecalciferol 1,000 unit 04/17/21 10:00 06/23/21 10:25 Cholecalciferol (Vit D3) 1000 Unit (25 Mcg) Tab PO 1,000 unit QDAY TUTU Administration Clonazepam 1 mg 05/29/21 08:06 06/23/21 10:26 Clonazepam 0.5 Mg Tab PO 1 mg Q8H PRN Administration Anxiety Dextrose 50 ml 04/18/21 07:30 04/28/21 09:59 Dextrose 50% In Water (25gm) 50 Ml Syringe IV 50 ml Q30MIN PRN Administration Hypoglycemia Protocol Docusate Sodium 100 mg 04/30/21 10:00 06/23/21 10:25 Docusate Sodium 100 Mg Cap PO 100 mg BID TUTU Administration Enoxaparin Sodium 40 mg 05/19/21 22:00 06/22/21 22:04 Enoxaparin 40 Mg/0.4 Ml Inj SUB-Q 40 mg QDAY@2200 TUTU Administration Protocol Furosemide 40 mg 06/07/21 10:00 06/23/21 10:26 Furosemide 40 Mg/4 Ml Inj IV 40 mg QDAY TUTU Administration Insulin Glargine 25 units 05/04/21 11:05 06/23/21 09:30 Insulin Glargine 100 Units/Ml SUB-Q 25 units DAILY TUTU Administration Insulin Human Lispro 0 unit 05/18/21 12:00 06/23/21 08:37 Insulin Lispro 100 Unit/Ml SUB-Q Not Given ACHS [facility] Protocol Lorazepam 1 mg 05/25/21 14:40 06/11/21 23:55 Lorazepam 2 Mg/Ml Vial IV 1 mg Q6H PRN Administration Agitation Magnesium Hydroxide 30 ml 06/07/21 16:30 06/11/21 11:06 Magnesium Hydroxide (Mom) Oral Liqd Udc PO 30 ml QDAY PRN Administration Constipation Ondansetron HCl 4 mg 04/16/21 14:00 05/30/21 10:07 Ondansetron 4 Mg/2 Ml Inj IV 4 mg Q8H PRN Administration Nausea And Vomiting Prednisone 40 mg 06/20/21 11:36 06/23/21 10:25 Prednisone 20 Mg Tab PO 40 mg QDAY TUTU Administration Senna 17.2 mg 05/02/21 22:00 06/22/21 22:09 Sennosides 8.6 Mg Tab PO Not Given QHS TUTU Sodium Chloride 10 ml 04/16/21 22:00 06/23/21 10:26 Sodium Chloride 0.9% 10 Ml Flush Syringe IV 10 ml BID TUTU Administration Sodium Chloride 10 ml 04/16/21 13:39 05/22/21 15:21 Sodium Chloride 0.9% 10 Ml Flush Syringe IV 10 ml PRN PRN Administration LINE FLUSH Zinc Sulfate 220 mg 04/16/21 22:00 06/23/21 10:25 Zinc Sulfate 220 Mg Cap PO 220 mg BID TUTU Administration Zolpidem Tartrate 10 mg 05/26/21 08:56 06/22/21 22:24 Zolpidem 5 Mg Tab PO 10 mg QHS PRN Administration Insomnia Nutrition/Malnutrition Assess - Dietary Evaluation Nutrition/Malnutrition Findings: Nutrition Notes Start: 04/23/21 07:41 Freq: Status: Active Protocol: Document 06/04/21 11:07 FABIAN (Rec: 06/04/21 11:07 FABIAN [id number]) Nutrition Notes Initial or Follow up Brief Note Current Diagnosis Respiratory Failure Other Pertinent Diagnosis oral thrush, COVID-19 pneu Current Diet GI soft Subjective/Other Information Pt continues to eat 75-100% of meals. Nutrition Intervention Revisit per MD consult or patient Sign Off request:
[2021-06-23] MEDS: ENOXAPARIN 40 MG/0.4 ML INJ SUB-Q SCH (22:06)
[2021-06-23] MEDS: SENNOSIDES 8.6 MG TAB PO SCH (22:06)
[2021-06-23] MEDS: ZOLPIDEM 5 MG TAB PO PRN (22:21)
[2021-06-24] MEDS: INSULIN LISPRO 100 UNIT/ML SUB-Q SCH ×4 (08:16→21:48)
[2021-06-24] MEDS: INSULIN GLARGINE 100 UNITS/ML SUB-Q SCH (09:08)
[2021-06-24] MEDS: CHOLECALCIFEROL (VIT D3) 1000 UNIT (25 mcg) TAB PO SCH (09:08)
[2021-06-24] MEDS: ZINC SULFATE 220 MG CAP PO SCH ×2 (09:08→21:47)
[2021-06-24] MEDS: FUROSEMIDE 40 MG/4 ML INJ IV SCH (09:08)
[2021-06-24] MEDS: DOCUSATE SODIUM 100 MG CAP PO SCH ×2 (09:08→21:47)
[2021-06-24] MEDS: predniSONE 20 MG TAB PO SCH (09:09)
[2021-06-24] MEDS: ASCORBIC ACID 500 MG TAB PO SCH (09:09)
[2021-06-24] MEDS: ACETAMINOPHEN 325 MG TAB PO PRN (18:23)
--- NOTE | 2021-06-24 19:04 | Progress Note ---
Assessment and Plan Assessment and plan: Assessment and Plan - Patient Problems (1) Acute hypoxemic respiratory failure Current Visit: Yes Status: Acute Plan to address problem: Supplemental oxygen, pulse oximetry, nebulizer therapy, proposition while in bed, noninvasive positive pressure ventilation as clinically indicated. Patient remains on high flow supplemental oxygen without much improvement of hypoxia. Will continue to attempt to wean O2 as tolerated. (2) Pneumonia Current Visit: Yes Status: Acute Qualifiers: Aspiration pneumonia type: unspecified Laterality: unspecified laterality Lung location: unspecified part of lung Plan to address problem: Pneumonia protocol: Chest x-ray, CBC, CMP, IV antibiotic therapy, blood culture. (3) Coronavirus infection Current Visit: Yes Status: Acute Plan to address problem: Supportive care, infectious disease service consulted. Continue medical management. (4) DVT prophylaxis Current Visit: Yes Status: Acute Plan to address problem: SCD to bilateral lower extremities while in bed, prophylactic anticoagulation History Interval history: 50 YO Female with Acute/Chronic respiratory failure secondary to coronavirus infection complicated by sepsis. Patient acknowledges shortness of breath and continues to require high flow supplemental oxygen support. Continue current therapy, patient resting comfortably. Patient denies pain. No reported nursing events overnight. No significant improvement in patient clinical status. Discussed with the patient and the nursing staff. History Interval history: Patient remains severely hypoxic, needing 30 L of O2 and 60% of FiO2. She is moderately dyspneic at rest. However she is mentating well. Hospitalist Physical - Constitutional Vitals: Temp Pulse Resp BP Pulse Ox 97.7 F 80 18 108/66 93 06/24/21 04:30 06/24/21 04:30 06/24/21 04:30 06/24/21 04:30 06/24/21 14:00 General appearance: Present: mild distress, well-nourished - EENT Eyes: Present: PERRL - Neck Neck: Present: supple - Respiratory Respiratory effort: labored Respiratory: bilateral: diminished - Cardiovascular Rhythm: regular - Extremities Extremities: No edema - Abdominal General gastrointestinal: non-tender - Integumentary Integumentary: Absent: rash - Psychiatric Psychiatric: appropriate mood/affect, cooperative - Neurologic Neurologic: no focal deficits, moves all extremities Results - Labs CBC & Chem 7: 06/21/21 06:45 06/22/21 06:25 Labs: Laboratory Last Values WBC 9.2 K/mm3 (4.5-11.0) 06/21/21 06:45 RBC 4.26 M/mm3 (3.65-5.03) 06/21/21 06:45 Hgb 13.5 gm/dl (10.1-14.3) 06/21/21 06:45 Hct 40.1 % (30.3-42.9) 06/21/21 06:45 MCV 94 fl (79-97) 06/21/21 06:45 MCH 32 pg (28-32) 06/21/21 06:45 MCHC 34 % (30-34) 06/21/21 06:45 RDW 20.0 % (13.2-15.2) H 06/21/21 06:45 Plt Count 285 K/mm3 (140-440) 06/21/21 06:45 Lymph % (Auto) 30.3 % (13.4-35.0) 06/21/21 06:45 [place] % (Auto) 6.5 % (0.0-7.3) 06/21/21 06:45 Eos % (Auto) 0.7 % (0.0-4.3) 06/21/21 06:45 Baso % (Auto) 0.5 % (0.0-1.8) 06/21/21 06:45 Lymph # (Auto) 2.8 K/mm3 (1.2-5.4) 06/21/21 06:45 [place] # (Auto) 0.6 K/mm3 (0.0-0.8) 06/21/21 06:45 Eos # (Auto) 0.1 K/mm3 (0.0-0.4) 06/21/21 06:45 Baso # (Auto) 0.0 K/mm3 (0.0-0.1) 06/21/21 06:45 Add Manual Diff Complete 05/12/21 04:05 Total Counted 100 05/12/21 04:05 Seg Neutrophils % 62.0 % (40.0-70.0) 06/21/21 06:45 Seg Neuts % (Manual) 94.0 % (40.0-70.0) H 05/12/21 04:05 Band Neutrophils % 1.0 % 05/12/21 04:05 Lymphocytes % (Manual) 4.0 % (13.4-35.0) L 05/12/21 04:05 Monocytes % (Manual) 1.0 % (0.0-7.3) 05/12/21 04:05 Nucleated RBC % Not Reportable 05/12/21 04:05 Seg Neutrophils # 5.7 K/mm3 (1.8-7.7) 06/21/21 06:45 Seg Neutrophils # Man 6.4 K/mm3 (1.8-7.7) 05/12/21 04:05 Band Neutrophils # 0.1 K/mm3 05/12/21 04:05 Lymphocytes # (Manual) 0.3 K/mm3 (1.2-5.4) L 05/12/21 04:05 Abs React Lymphs (Man) 0.0 K/mm3 05/12/21 04:05 Monocytes # (Manual) 0.1 K/mm3 (0.0-0.8) 05/12/21 04:05 Eosinophils # (Manual) 0.0 K/mm3 (0.0-0.4) 05/12/21 04:05 Basophils # (Manual) 0.0 K/mm3 (0.0-0.1) 05/12/21 04:05 Metamyelocytes # 0.0 K/mm3 05/12/21 04:05 Myelocytes # 0.0 K/mm3 05/12/21 04:05 Promyelocytes # 0.0 K/mm3 05/12/21 04:05 Blast Cells # 0.0 K/mm3 05/12/21 04:05 WBC Morphology Not Reportable 05/12/21 04:05 Hypersegmented Neuts Not Reportable 05/12/21 04:05 Hyposegmented Neuts Not Reportable 05/12/21 04:05 Hypogranular Neuts Not Reportable 05/12/21 04:05 Smudge Cells Not Reportable 05/12/21 04:05 Toxic Granulation Not Reportable 05/12/21 04:05 Toxic Vacuolation Not Reportable 05/12/21 04:05 Dohle Bodies Not Reportable 05/12/21 04:05 Pelger-Huet Anomaly Not Reportable 05/12/21 04:05 Janelle Rods Not Reportable 05/12/21 04:05 Platelet Estimate Consistent w auto 05/12/21 04:05 Clumped Platelets Not Reportable 05/12/21 04:05 Plt Clumps, EDTA Not Reportable 05/12/21 04:05 Large Platelets Not Reportable 05/12/21 04:05 Giant Platelets Not Reportable 05/12/21 04:05 Platelet Satelliting Not Reportable 05/12/21 04:05 Plt Morphology Comment Not Reportable 05/12/21 04:05 RBC Morphology Normal 05/12/21 04:05 Dimorphic RBCs Not Reportable 05/12/21 04:05 Polychromasia Not Reportable 05/12/21 04:05 Hypochromasia Not Reportable 05/12/21 04:05 Poikilocytosis Not Reportable 05/12/21 04:05 Anisocytosis Not Reportable 05/12/21 04:05 Microcytosis Not Reportable 05/12/21 04:05 Macrocytosis Not Reportable 05/12/21 04:05 Spherocytes Not Reportable 05/12/21 04:05 Pappenheimer Bodies Not Reportable 05/12/21 04:05 Sickle Cells Not Reportable 05/12/21 04:05 Target Cells Not Reportable 05/12/21 04:05 Tear Drop Cells Not Reportable 05/12/21 04:05 Ovalocytes Not Reportable 05/12/21 04:05 Helmet Cells Not Reportable 05/12/21 04:05 Ahuja-Solis Bodies Not Reportable 05/12/21 04:05 Amigo Rings Not Reportable 05/12/21 04:05 Crow Cells Not Reportable 05/12/21 04:05 Bite Cells Not Reportable 05/12/21 04:05 Crenated Cell Not Reportable 05/12/21 04:05 Elliptocytes Not Reportable 05/12/21 04:05 Acanthocytes (Spur) Not Reportable 05/12/21 04:05 Rouleaux Not Reportable 05/12/21 04:05 Hemoglobin C Crystals Not Reportable 05/12/21 04:05 Schistocytes Not Reportable 05/12/21 04:05 Malaria parasites Not Reportable 05/12/21 04:05 Justin Bodies Not Reportable 05/12/21 04:05 Hem Pathologist Commnt No 05/12/21 04:05 D-Dimer 488.49 ng/mlDDU (0-234) H 06/05/21 05:26 ABG pH 7.403 pH Units (7.350-7.450) 05/14/21 02:23 POC ABG pCO2 45.4 mmHg (32.0-48.0) 05/03/21 04:49 ABG pCO2 50.2 mm Hg 05/14/21 02:23 POC ABG pO2 65.3 mmHg (83-108) L 05/03/21 04:49 ABG pO2 130.3 mm Hg (80.0-90.0) H 05/14/21 02:23 POC ABG HCO3 18.5 05/03/21 04:49 ABG HCO3 30.6 mmol/L (20.0-26.0) H 05/14/21 02:23 ABG O2 Saturation 98.5 % (95.0-99.0) 05/14/21 02:23 ABG O2 Content 17.9 (0.0-44) 05/14/21 02:23 POC ABG Base Excess -8.9 05/03/21 04:49 ABG Base Excess 4.9 mmol/L (-2.0-3.0) H 05/14/21 02:23 ABG Hemoglobin 13.0 gm/dl (12.0-16.0) 05/14/21 02:23 ABG Oxyhemoglobin 87.8 (94-98) L 05/03/21 04:49 ABG Carboxyhemoglobin 1.4 % (0.0-5.0) 05/14/21 02:23 ABG Methemoglobin 0.6 % (0.0-1.5) 05/14/21 02:23 ABG Sodium 133.0 mmol/L (136.0-145.0) L 05/03/21 04:49 ABG Potassium 3.9 mmol/L (3.40-4.50) 05/03/21 04:49 ABG Chloride 97.0 mmol/L (98-107) L 05/03/21 04:49 ABG Glucose 403 mg/dL (65-95) H 05/03/21 04:49 Oxyhemoglobin 96.5 % (95.0-99.0) 05/14/21 02:23 Carboxyhemoglobin 0.6 (0.5-1.5) 05/03/21 04:49 FiO2 90 % 05/14/21 02:23 FiO2 % 100.0 05/03/21 04:49 Sodium 142 mmol/L (137-145) 06/22/21 06:25 Potassium 4.3 mmol/L (3.6-5.0) D 06/22/21 06:25 Chloride 101.7 mmol/L (98-107) 06/22/21 06:25 Carbon Dioxide 30 mmol/L (22-30) 06/22/21 06:25 Anion Gap 15 mmol/L 06/22/21 06:25 BUN 20 mg/dL (7-17) H 06/22/21 06:25 Creatinine 0.2 mg/dL (0.6-1.2) L 06/22/21 06:25 Estimated GFR > 60 ml/min 06/22/21 06:25 BUN/Creatinine Ratio 100 % 06/22/21 06:25 Glucose 75 mg/dL (65-100) 06/22/21 06:25 POC Glucose 357 mg/dL (70-105) H 06/24/21 16:54 Hemoglobin A1c 8.5 % (4-6) H 04/18/21 07:36 Calcium 9.0 mg/dL (8.4-10.2) 06/22/21 06:25 Phosphorus 3.60 mg/dL (2.5-4.5) 05/06/21 05:00 Magnesium 2.00 mg/dL (1.7-2.3) 05/06/21 05:00 Ferritin 187.7 ng/mL (10.0-200.0) 06/05/21 05:26 Total Bilirubin 0.30 mg/dL (0.1-1.2) 06/02/21 05:34 AST 22 units/L (5-40) 06/02/21 05:34 ALT 69 units/L (7-56) H 06/02/21 05:34 Alkaline Phosphatase 66 units/L (35-129) 06/02/21 05:34 Lactate Dehydrogenase 475 units/L (91-180) H 06/05/21 05:26 C-Reactive Protein 0.10 mg/dL (0.00-1.30) 06/05/21 05:26 Total Protein 6.1 g/dL (6.3-8.2) L 06/02/21 05:34 Albumin 3.2 g/dL (3.9-5) L 06/02/21 05:34 Albumin/Globulin Ratio 1.1 % 06/02/21 05:34 Triglycerides < 9 mg/dL (2-149) 05/03/21 04:30 Procalcitonin < 0.05 ng/mL (<0.15) 05/23/21 09:50 Arterial Blood Glucose 403 mg/dL (65-95) H 05/03/21 04:49 Arterial Blood Ionized Calcium 4.9 mg/dL (4.6-5.3) 05/03/21 04:49 Coronavirus (PCR) Positive (Negative) A 06/05/21 08:30 Amos/IV: Voiding Method Bedpan Active Medications - Current Medications Current Medications: Generic Name Dose Route Start Last Admin Trade Name Freq PRN Reason Stop Dose Admin Acetaminophen 650 mg 04/16/21 14:00 06/24/21 18:23 Acetaminophen 325 Mg Tab PO 650 mg Q4H PRN Administration Pain MILD(1-3)/Fever >100.5/[place] Albuterol 2.5 mg 04/16/21 13:39 04/21/21 20:39 Albuterol 2.5 Mg/3 Ml Nebu IH 2.5 mg Q4HRT PRN Administration Shortness Of Breath Artificial Tears 2 drops 04/28/21 18:15 05/29/21 13:25 Hypromellose 0.5% Ophth Soln 15 Ml OU 2 drops Q4H PRN Administration Dry Eye(s) Ascorbic Acid 500 mg 04/24/21 10:00 06/24/21 09:09 Ascorbic Acid 500 Mg Tab PO 500 mg QDAY TUTU Administration Bisacodyl 10 mg 06/10/21 18:00 Bisacodyl 10 Mg Rect Supp MA QDAY PRN Constipation Cholecalciferol 1,000 unit 04/17/21 10:00 06/24/21 09:08 Cholecalciferol (Vit D3) 1000 Unit (25 Mcg) Tab PO 1,000 unit QDAY TUTU Administration Clonazepam 1 mg 05/29/21 08:06 06/23/21 10:26 Clonazepam 0.5 Mg Tab PO 1 mg Q8H PRN Administration Anxiety Dextrose 50 ml 04/18/21 07:30 04/28/21 09:59 Dextrose 50% In Water (25gm) 50 Ml Syringe IV 50 ml Q30MIN PRN Administration Hypoglycemia Protocol Docusate Sodium 100 mg 04/30/21 10:00 06/24/21 09:08 Docusate Sodium 100 Mg Cap PO 100 mg BID TUTU Administration Enoxaparin Sodium 40 mg 05/19/21 22:00 06/23/21 22:06 Enoxaparin 40 Mg/0.4 Ml Inj SUB-Q 40 mg QDAY@2200 TUTU Administration Protocol Furosemide 40 mg 06/07/21 10:00 06/24/21 09:08 Furosemide 40 Mg/4 Ml Inj IV 40 mg QDAY TUTU Administration Insulin Glargine 25 units 05/04/21 11:05 06/24/21 09:08 Insulin Glargine 100 Units/Ml SUB-Q 25 units DAILY TUTU Administration Insulin Human Lispro 0 unit 05/18/21 12:00 06/24/21 17:38 Insulin Lispro 100 Unit/Ml SUB-Q 10 unit ACHS TUTU Administration Protocol Lorazepam 1 mg 05/25/21 14:40 06/11/21 23:55 Lorazepam 2 Mg/Ml Vial IV 1 mg Q6H PRN Administration Agitation Magnesium Hydroxide 30 ml 06/07/21 16:30 06/11/21 11:06 Magnesium Hydroxide (Mom) Oral Liqd Udc PO 30 ml QDAY PRN Administration Constipation Ondansetron HCl 4 mg 04/16/21 14:00 05/30/21 10:07 Ondansetron 4 Mg/2 Ml Inj IV 4 mg Q8H PRN Administration Nausea And Vomiting Prednisone 40 mg 06/20/21 11:36 06/24/21 09:09 Prednisone 20 Mg Tab PO 40 mg QDAY TUTU Administration Senna 17.2 mg 05/02/21 22:00 06/23/21 22:06 Sennosides 8.6 Mg Tab PO 17.2 mg QHS TUTU Administration Sodium Chloride 10 ml 04/16/21 22:00 06/24/21 09:10 Sodium Chloride 0.9% 10 Ml Flush Syringe IV 10 ml BID TUTU Administration Sodium Chloride 10 ml 04/16/21 13:39 05/22/21 15:21 Sodium Chloride 0.9% 10 Ml Flush Syringe IV 10 ml PRN PRN Administration LINE FLUSH Zinc Sulfate 220 mg 04/16/21 22:00 06/24/21 09:08 Zinc Sulfate 220 Mg Cap PO 220 mg BID TUTU Administration Zolpidem Tartrate 10 mg 05/26/21 08:56 06/23/21 22:21 Zolpidem 5 Mg Tab PO 10 mg QHS PRN Administration Insomnia Nutrition/Malnutrition Assess - Dietary Evaluation Nutrition/Malnutrition Findings: Nutrition Notes Start: 04/23/21 07:41 Freq: Status: Active Protocol: Document 06/04/21 11:07 (Rec: 06/04/21 11:07 [id number]) Nutrition Notes Initial or Follow up Brief Note Current Diagnosis Respiratory Failure Other Pertinent Diagnosis oral thrush, COVID-19 pneu Current Diet GI soft Subjective/Other Information Pt continues to eat 75-100% of meals. Nutrition Intervention Revisit per MD consult or patient Sign Off request:
[2021-06-24] MEDS: SENNOSIDES 8.6 MG TAB PO SCH (21:47)
[2021-06-24] MEDS: ENOXAPARIN 40 MG/0.4 ML INJ SUB-Q SCH (21:47)
[2021-06-24] MEDS: ZOLPIDEM 5 MG TAB PO PRN (22:30)
[2021-06-25] MEDS: INSULIN LISPRO 100 UNIT/ML SUB-Q SCH ×4 (08:23→22:54)
--- NOTE | 2021-06-25 08:28 | Progress Note ---
Assessment and Plan Assessment and plan: Admit 04/16 from ER 50 YO Female with GERD, Obesity, HLD presents to ED for evaluation. Patient reports "I cannot breathe". Patient states that she has experienced subjective fever, shortness of breath, malaise, body aches, dry cough, and shortness of breath over the past 1 week with progressively worsening symptoms over the same timeframe. EMS was notified and upon arrival the patient was found to be in distress and subsequent transported to [facility] for further care and evaluation of the aforementioned symptoms. The patient was seen and evaluated in the emergency department. All lab and imaging studies reviewed. Patient found to have a pulse oximetry of 86% with exertion on room air which is consistent with acute hypoxemic respiratory failure. Patient with chest x-ray which revealed bilateral pneumonia. Patient admitted to medical floor and initiated him on pneumonia protocol as well as coronavirus protocol. Patient knowledges fever but denies chills, chest pain, palpitation, skin rash, recent ill contacts, or known exposure to COVID-19. Prior admission on 01/21/2017 reviewed. All m edication listed at time of admission has been reconciled. Patient is unvaccinated for coronavirus infection. CXR: Bilateral Pneumonia 04/17: Patient seen and examined, still uncomfortable with Hypoxic respiratory failure and on oxygen, will continue to steroids therapy, start patient on Remdesivir, ID consulted, Pulmonary consult placed. 04/18: Patient seen and examined, she is currently being changed to High flow NC due to worsening HYPOXIA, will transfer to IMCU, Pulmonary and ID following. Will also give a dose of Lasix today. Monitor Inflammatory markers. 04/19: Patient seen and examined still on high flow due to hypoxia. Appears a bit more comfortable today than yesterday. Cough has decreased in frequency. We will continue high dose Dexameathasone to complete 10 days. continue on Remdesivir 200 mg IV q day x 1 followed by 100 mg IV q day x 4 days -Obtain q48-72h inflammatory markers - ferritin, Ddimer, CRP, LDH Will also give lasix daily for the next 3 days and monitor renal function. Family updated. Continue prone positioning as tolerated 04/20: Patient has some desaturation episodes yesterday was placed on BiPAP. Discussed with ICU team for bed availability for patient to be transferred up. Continue prone position as tolerated. 8/8: Patient remains with profound hypoxia secondary to COVID pneumonia. -Continue steroids -Continue remedesir -S/P Actmera 04/22: Patient remains on steroids and remdesivir. ABG shows persistent hypoxia. We will continue current management additional trial of Lasix for the next few days to see if any improvement. Monitor inflammatory markers as needed. Prognosis is guarded remains on high flow 04/23; patient was treated with remdesivir and Actemra. Continue steroid. Patient's prognosis is guarded. 04/24; patient is on steroid. Patient is currently on BiPAP. Prognosis is guarded. Pulmonary is following. Patient was given Lasix and Ativan. 04/25; continue steroid. Patient was on 40 L of high flow oxygen with saturation was 88%. Pulmonary is following. Prognosis is guarded. Patient was given lasix and ativan. 04/26; patient is on BiPAP and Precedex. Prognosis is guarded. 04/27; patient is on BiPAP and Precedex. Patient will finish steroid today and will start on Solu-Medrol tomorrow. Prognosis is guarded. Blood pressure is better today. Hold Lasix. 04/28 patient is on 100 Fio2 via BIPAP. moderately dyspneic, pulmonary note reviewed, lab results reviewed 04/29 no acute events- see systems review above 04/30 no acute events overnight - on airvo today- TPN started -see systems review above 05-01 no acute events overnight- tolerating airvo- see systems review above - no acute events overnight; tolerating airvo this AM- see systems review above 05/03: Patient remains on full high flow oxygen. No acute events overnight 05/04: Patient remains on BiPAP this morning at 70%. Returning to service Patient initially managed in the ICU and then transfered to the floor 06/25: Patient remains on full oxygen with high flow, encouraged to prone at night time. Spoke to Night nursing staff to ensure assisting the patient Prone. Continue steroid therapy, will discuss with Pulmonary about trying additional lasix. Plan discussed with patient and family. Sepsis secondary to COVID 19 Acute hypoxemic respiratory failure Current Visit: Yes Status: Acute Plan to address problem: Supplemental oxygen, pulse oximetry, nebulizer therapy, proposition while in bed, noninvasive positive pressure ventilation as clinically indicated. Patient remains on high flow supplemental oxygen without much improvement of hypoxia. Will continue to attempt to wean O2 as tolerated. Pneumonia Current Visit: Yes Status: Acute Qualifiers: Aspiration pneumonia type: unspecified Laterality: unspecified laterality Lung location: unspecified part of lung Plan to address problem: Pneumonia protocol: Chest x-ray, CBC, CMP, IV antibiotic therapy, blood culture. Coronavirus infection Current Visit: Yes Status: Acute Plan to address problem: Supportive care, infectious disease service consulted. Continue medical management. Anxiety Right eye- viral conjunctivitis vs subconjunctival hemorrhage continue to monitor treated with ofloxacin ou x 5 days artificial tears has not provided relief Protein gisella malnutrition given inc metabolic demand with resp insufficiency Now off TPN Diabetes mellitus with Hyperglycemia; Noted hypoglycemia will wean down lantus. glargine HS SSI AC/HS Obesity - volume overload; hypona; hypoMg DVT prophylaxis Current Visit: Yes Status: Acute Plan to address problem: SCD to bilateral lower extremities while in bed, prophylactic anticoagulation History Interval history: Patient seen and examined, still with shortness of breath, destaurates with movement, otherwise speaking in full sentences. Hospitalist Physical - Physical exam Narrative exam: General appearance: Absent: mild distress, Continues on High Flow 35L and 60% - EENT Eyes: Present: PERRL ENT: hearing intact, clear oral mucosa - Neck Neck: Present: supple, normal ROM - Respiratory Respiratory effort: normal Respiratory: bilateral: Diminished - Cardiovascular Heart Sounds: Present: S1 & S2. Absent: rub, click - Extremities Extremities: pulses symmetrical, No edema Peripheral Pulses: within normal limits - Abdominal General gastrointestinal: Present: soft, non-tender, non-distended, normal bowel sounds Female genitourinary: Present: normal - Integumentary Integumentary: Present: clear, warm, dry - Musculoskeletal Musculoskeletal: gait normal, strength equal bilaterally - Psychiatric Psychiatric: appropriate mood/affect, intact judgment & insight - Neurologic Neurologic: CNII-XII intact, moves all extremities - Constitutional Vitals: Temp Pulse Resp BP Pulse Ox 97.8 F 80 26 H 119/73 94 06/25/21 05:14 06/25/21 05:14 06/25/21 05:14 06/25/21 05:14 06/25/21 05:14 General appearance: Present: mild distress, well-nourished Results - Labs CBC & Chem 7: 06/21/21 06:45 06/22/21 06:25 Labs: Laboratory Last Values WBC 9.2 K/mm3 (4.5-11.0) 06/21/21 06:45 RBC 4.26 M/mm3 (3.65-5.03) 06/21/21 06:45 Hgb 13.5 gm/dl (10.1-14.3) 06/21/21 06:45 Hct 40.1 % (30.3-42.9) 06/21/21 06:45 MCV 94 fl (79-97) 06/21/21 06:45 MCH 32 pg (28-32) 06/21/21 06:45 MCHC 34 % (30-34) 06/21/21 06:45 RDW 20.0 % (13.2-15.2) H 06/21/21 06:45 Plt Count 285 K/mm3 (140-440) 06/21/21 06:45 Lymph % (Auto) 30.3 % (13.4-35.0) 06/21/21 06:45 [place] % (Auto) 6.5 % (0.0-7.3) 06/21/21 06:45 Eos % (Auto) 0.7 % (0.0-4.3) 06/21/21 06:45 Baso % (Auto) 0.5 % (0.0-1.8) 06/21/21 06:45 Lymph # (Auto) 2.8 K/mm3 (1.2-5.4) 06/21/21 06:45 [place] # (Auto) 0.6 K/mm3 (0.0-0.8) 06/21/21 06:45 Eos # (Auto) 0.1 K/mm3 (0.0-0.4) 06/21/21 06:45 Baso # (Auto) 0.0 K/mm3 (0.0-0.1) 06/21/21 06:45 Add Manual Diff Complete 05/12/21 04:05 Total Counted 100 05/12/21 04:05 Seg Neutrophils % 62.0 % (40.0-70.0) 06/21/21 06:45 Seg Neuts % (Manual) 94.0 % (40.0-70.0) H 05/12/21 04:05 Band Neutrophils % 1.0 % 05/12/21 04:05 Lymphocytes % (Manual) 4.0 % (13.4-35.0) L 05/12/21 04:05 Monocytes % (Manual) 1.0 % (0.0-7.3) 05/12/21 04:05 Nucleated RBC % Not Reportable 05/12/21 04:05 Seg Neutrophils # 5.7 K/mm3 (1.8-7.7) 06/21/21 06:45 Seg Neutrophils # Man 6.4 K/mm3 (1.8-7.7) 05/12/21 04:05 Band Neutrophils # 0.1 K/mm3 05/12/21 04:05 Lymphocytes # (Manual) 0.3 K/mm3 (1.2-5.4) L 05/12/21 04:05 Abs React Lymphs (Man) 0.0 K/mm3 05/12/21 04:05 Monocytes # (Manual) 0.1 K/mm3 (0.0-0.8) 05/12/21 04:05 Eosinophils # (Manual) 0.0 K/mm3 (0.0-0.4) 05/12/21 04:05 Basophils # (Manual) 0.0 K/mm3 (0.0-0.1) 05/12/21 04:05 Metamyelocytes # 0.0 K/mm3 05/12/21 04:05 Myelocytes # 0.0 K/mm3 05/12/21 04:05 Promyelocytes # 0.0 K/mm3 05/12/21 04:05 Blast Cells # 0.0 K/mm3 05/12/21 04:05 WBC Morphology Not Reportable 05/12/21 04:05 Hypersegmented Neuts Not Reportable 05/12/21 04:05 Hyposegmented Neuts Not Reportable 05/12/21 04:05 Hypogranular Neuts Not Reportable 05/12/21 04:05 Smudge Cells Not Reportable 05/12/21 04:05 Toxic Granulation Not Reportable 05/12/21 04:05 Toxic Vacuolation Not Reportable 05/12/21 04:05 Dohle Bodies Not Reportable 05/12/21 04:05 Pelger-Huet Anomaly Not Reportable 05/12/21 04:05 Janelle Rods Not Reportable 05/12/21 04:05 Platelet Estimate Consistent w auto 05/12/21 04:05 Clumped Platelets Not Reportable 05/12/21 04:05 Plt Clumps, EDTA Not Reportable 05/12/21 04:05 Large Platelets Not Reportable 05/12/21 04:05 Giant Platelets Not Reportable 05/12/21 04:05 Platelet Satelliting Not Reportable 05/12/21 04:05 Plt Morphology Comment Not Reportable 05/12/21 04:05 RBC Morphology Normal 05/12/21 04:05 Dimorphic RBCs Not Reportable 05/12/21 04:05 Polychromasia Not Reportable 05/12/21 04:05 Hypochromasia Not Reportable 05/12/21 04:05 Poikilocytosis Not Reportable 05/12/21 04:05 Anisocytosis Not Reportable 05/12/21 04:05 Microcytosis Not Reportable 05/12/21 04:05 Macrocytosis Not Reportable 05/12/21 04:05 Spherocytes Not Reportable 05/12/21 04:05 Pappenheimer Bodies Not Reportable 05/12/21 04:05 Sickle Cells Not Reportable 05/12/21 04:05 Target Cells Not Reportable 05/12/21 04:05 Tear Drop Cells Not Reportable 05/12/21 04:05 Ovalocytes Not Reportable 05/12/21 04:05 Helmet Cells Not Reportable 05/12/21 04:05 [place]hu[place] Bodies Not Reportable 05/12/21 04:05 [place] Rings Not Reportable 05/12/21 04:05 Crow Cells Not Reportable 05/12/21 04:05 Bite Cells Not Reportable 05/12/21 04:05 Crenated Cell Not Reportable 05/12/21 04:05 Elliptocytes Not Reportable 05/12/21 04:05 Acanthocytes (Spur) Not Reportable 05/12/21 04:05 Rouleaux Not Reportable 05/12/21 04:05 Hemoglobin C Crystals Not Reportable 05/12/21 04:05 Schistocytes Not Reportable 05/12/21 04:05 Malaria parasites Not Reportable 05/12/21 04:05 Justin Bodies Not Reportable 05/12/21 04:05 Hem Pathologist Commnt No 05/12/21 04:05 D-Dimer 488.49 ng/mlDDU (0-234) H 06/05/21 05:26 ABG pH 7.403 pH Units (7.350-7.450) 05/14/21 02:23 POC ABG pCO2 45.4 mmHg (32.0-48.0) 05/03/21 04:49 ABG pCO2 50.2 mm Hg 05/14/21 02:23 POC ABG pO2 65.3 mmHg (83-108) L 05/03/21 04:49 ABG pO2 130.3 mm Hg (80.0-90.0) H 05/14/21 02:23 POC ABG HCO3 18.5 05/03/21 04:49 ABG HCO3 30.6 mmol/L (20.0-26.0) H 05/14/21 02:23 ABG O2 Saturation 98.5 % (95.0-99.0) 05/14/21 02:23 ABG O2 Content 17.9 (0.0-44) 05/14/21 02:23 POC ABG Base Excess -8.9 05/03/21 04:49 ABG Base Excess 4.9 mmol/L (-2.0-3.0) H 05/14/21 02:23 ABG Hemoglobin 13.0 gm/dl (12.0-16.0) 05/14/21 02:23 ABG Oxyhemoglobin 87.8 (94-98) L 05/03/21 04:49 ABG Carboxyhemoglobin 1.4 % (0.0-5.0) 05/14/21 02:23 ABG Methemoglobin 0.6 % (0.0-1.5) 05/14/21 02:23 ABG Sodium 133.0 mmol/L (136.0-145.0) L 05/03/21 04:49 ABG Potassium 3.9 mmol/L (3.40-4.50) 05/03/21 04:49 ABG Chloride 97.0 mmol/L (98-107) L 05/03/21 04:49 ABG Glucose 403 mg/dL (65-95) H 05/03/21 04:49 Oxyhemoglobin 96.5 % (95.0-99.0) 05/14/21 02:23 Carboxyhemoglobin 0.6 (0.5-1.5) 05/03/21 04:49 FiO2 90 % 05/14/21 02:23 FiO2 % 100.0 05/03/21 04:49 Sodium 142 mmol/L (137-145) 06/22/21 06:25 Potassium 4.3 mmol/L (3.6-5.0) D 06/22/21 06:25 Chloride 101.7 mmol/L (98-107) 06/22/21 06:25 Carbon Dioxide 30 mmol/L (22-30) 06/22/21 06:25 Anion Gap 15 mmol/L 06/22/21 06:25 BUN 20 mg/dL (7-17) H 06/22/21 06:25 Creatinine 0.2 mg/dL (0.6-1.2) L 06/22/21 06:25 Estimated GFR > 60 ml/min 06/22/21 06:25 BUN/Creatinine Ratio 100 % 06/22/21 06:25 Glucose 75 mg/dL (65-100) 06/22/21 06:25 POC Glucose 92 mg/dL (70-105) 06/25/21 08:05 Hemoglobin A1c 8.5 % (4-6) H 04/18/21 07:36 Calcium 9.0 mg/dL (8.4-10.2) 06/22/21 06:25 Phosphorus 3.60 mg/dL (2.5-4.5) 05/06/21 05:00 Magnesium 2.00 mg/dL (1.7-2.3) 05/06/21 05:00 Ferritin 187.7 ng/mL (10.0-200.0) 06/05/21 05:26 Total Bilirubin 0.30 mg/dL (0.1-1.2) 06/02/21 05:34 AST 22 units/L (5-40) 06/02/21 05:34 ALT 69 units/L (7-56) H 06/02/21 05:34 Alkaline Phosphatase 66 units/L (35-129) 06/02/21 05:34 Lactate Dehydrogenase 475 units/L (91-180) H 06/05/21 05:26 C-Reactive Protein 0.10 mg/dL (0.00-1.30) 06/05/21 05:26 Total Protein 6.1 g/dL (6.3-8.2) L 06/02/21 05:34 Albumin 3.2 g/dL (3.9-5) L 06/02/21 05:34 Albumin/Globulin Ratio 1.1 % 06/02/21 05:34 Triglycerides < 9 mg/dL (2-149) 05/03/21 04:30 Procalcitonin < 0.05 ng/mL (<0.15) 05/23/21 09:50 Arterial Blood Glucose 403 mg/dL (65-95) H 05/03/21 04:49 Arterial Blood Ionized Calcium 4.9 mg/dL (4.6-5.3) 05/03/21 04:49 Coronavirus (PCR) Positive (Negative) A 06/05/21 08:30 Amos/IV: Voiding Method Bedpan Active Medications - Current Medications Current Medications: Generic Name Dose Route Start Last Admin Trade Name Freq PRN Reason Stop Dose Admin Acetaminophen 650 mg 04/16/21 14:00 06/24/21 18:23 Acetaminophen 325 Mg Tab PO 650 mg Q4H PRN Administration Pain MILD(1-3)/Fever >100.5/[place] Albuterol 2.5 mg 04/16/21 13:39 04/21/21 20:39 Albuterol 2.5 Mg/3 Ml Nebu IH 2.5 mg Q4HRT PRN Administration Shortness Of Breath Artificial Tears 2 drops 04/28/21 18:15 05/29/21 13:25 Hypromellose 0.5% Ophth Soln 15 Ml OU 2 drops Q4H PRN Administration Dry Eye(s) Ascorbic Acid 500 mg 04/24/21 10:00 06/24/21 09:09 Ascorbic Acid 500 Mg Tab PO 500 mg QDAY TUTU Administration Bisacodyl 10 mg 06/10/21 18:00 Bisacodyl 10 Mg Rect Supp OK QDAY PRN Constipation Cholecalciferol 1,000 unit 04/17/21 10:00 06/24/21 09:08 Cholecalciferol (Vit D3) 1000 Unit (25 Mcg) Tab PO 1,000 unit QDAY TUTU Administration Clonazepam 1 mg 05/29/21 08:06 06/23/21 10:26 Clonazepam 0.5 Mg Tab PO 1 mg Q8H PRN Administration Anxiety Dextrose 50 ml 04/18/21 07:30 04/28/21 09:59 Dextrose 50% In Water (25gm) 50 Ml Syringe IV 50 ml Q30MIN PRN Administration Hypoglycemia Protocol Docusate Sodium 100 mg 04/30/21 10:00 06/24/21 21:47 Docusate Sodium 100 Mg Cap PO 100 mg BID TUTU Administration Enoxaparin Sodium 40 mg 05/19/21 22:00 06/24/21 21:47 Enoxaparin 40 Mg/0.4 Ml Inj SUB-Q 40 mg QDAY@2200 TUTU Administration Protocol Furosemide 40 mg 06/07/21 10:00 06/24/21 09:08 Furosemide 40 Mg/4 Ml Inj IV 40 mg QDAY TUTU Administration Insulin Glargine 25 units 05/04/21 11:05 06/24/21 09:08 Insulin Glargine 100 Units/Ml SUB-Q 25 units DAILY TUTU Administration Insulin Human Lispro 0 unit 05/18/21 12:00 06/24/21 21:48 Insulin Lispro 100 Unit/Ml SUB-Q 4 unit ACHS TUTU Administration Protocol Lorazepam 1 mg 05/25/21 14:40 06/11/21 23:55 Lorazepam 2 Mg/Ml Vial IV 1 mg Q6H PRN Administration Agitation Magnesium Hydroxide 30 ml 06/07/21 16:30 06/11/21 11:06 Magnesium Hydroxide (Mom) Oral Liqd Udc PO 30 ml QDAY PRN Administration Constipation Ondansetron HCl 4 mg 04/16/21 14:00 05/30/21 10:07 Ondansetron 4 Mg/2 Ml Inj IV 4 mg Q8H PRN Administration Nausea And Vomiting Prednisone 40 mg 06/20/21 11:36 06/24/21 09:09 Prednisone 20 Mg Tab PO 40 mg QDAY TUTU Administration Senna 17.2 mg 05/02/21 22:00 06/24/21 21:47 Sennosides 8.6 Mg Tab PO 17.2 mg QHS TUTU Administration Sodium Chloride 10 ml 04/16/21 22:00 06/24/21 21:47 Sodium Chloride 0.9% 10 Ml Flush Syringe IV 10 ml BID TUTU Administration Sodium Chloride 10 ml 04/16/21 13:39 05/22/21 15:21 Sodium Chloride 0.9% 10 Ml Flush Syringe IV 10 ml PRN PRN Administration LINE FLUSH Zinc Sulfate 220 mg 04/16/21 22:00 06/24/21 21:47 Zinc Sulfate 220 Mg Cap PO 220 mg BID TUTU Administration Zolpidem Tartrate 10 mg 05/26/21 08:56 06/24/21 22:30 Zolpidem 5 Mg Tab PO 10 mg QHS PRN Administration Insomnia Nutrition/Malnutrition Assess - Dietary Evaluation Nutrition/Malnutrition Findings: Nutrition Notes Start: 04/23/21 07:41 Freq: Status: Active Protocol: Document 06/04/21 11:07 FABIAN (Rec: 06/04/21 11:07 FABIAN [id number]) Nutrition Notes Initial or Follow up Brief Note Current Diagnosis Respiratory Failure Other Pertinent Diagnosis oral thrush, COVID-19 pneu Current Diet GI soft Subjective/Other Information Pt continues to eat 75-100% of meals. Nutrition Intervention Revisit per MD consult or patient Sign Off request:
[2021-06-25] MEDS: FUROSEMIDE 40 MG/4 ML INJ IV SCH (10:08)
[2021-06-25] MEDS: DOCUSATE SODIUM 100 MG CAP PO SCH ×2 (10:08→22:53)
[2021-06-25] MEDS: INSULIN GLARGINE 100 UNITS/ML SUB-Q SCH (10:09)
[2021-06-25] MEDS: ASCORBIC ACID 500 MG TAB PO SCH (10:09)
[2021-06-25] MEDS: ZINC SULFATE 220 MG CAP PO SCH ×2 (10:09→22:53)
[2021-06-25] MEDS: predniSONE 20 MG TAB PO SCH (10:09)
[2021-06-25] MEDS: CHOLECALCIFEROL (VIT D3) 1000 UNIT (25 mcg) TAB PO SCH (10:25)
[2021-06-25] MEDS: ZOLPIDEM 5 MG TAB PO PRN (22:53)
[2021-06-25] MEDS: SENNOSIDES 8.6 MG TAB PO SCH (22:53)
[2021-06-25] MEDS: ENOXAPARIN 40 MG/0.4 ML INJ SUB-Q SCH (22:53)
[2021-06-26 07:56] LABS: Alanine Aminotransferase 77 units/L (7-56); Albumin 3.3 g/dL (3.9-5); Blood Urea Nitrogen 20 mg/dL (7-17); Calcium 9.4 mg/dL (8.4-10.2); Hemolysis Index 4
[2021-06-26] MEDS: INSULIN LISPRO 100 UNIT/ML SUB-Q SCH ×4 (08:22→22:49)
[2021-06-26 08:24] LABS: BUN/Creatinine Ratio 67
[2021-06-26] MEDS: ZINC SULFATE 220 MG CAP PO SCH ×2 (09:04→22:46)
[2021-06-26] MEDS: CHOLECALCIFEROL (VIT D3) 1000 UNIT (25 mcg) TAB PO SCH (09:04)
[2021-06-26] MEDS: FUROSEMIDE 40 MG/4 ML INJ IV SCH (09:04)
[2021-06-26] MEDS: DOCUSATE SODIUM 100 MG CAP PO SCH ×2 (09:05→22:49)
[2021-06-26] MEDS: INSULIN GLARGINE 100 UNITS/ML SUB-Q SCH (09:05)
[2021-06-26] MEDS: predniSONE 20 MG TAB PO SCH ×2 (09:05→17:59)
[2021-06-26] MEDS: ASCORBIC ACID 500 MG TAB PO SCH (09:05)
--- NOTE | 2021-06-26 09:45 | Progress Note ---
Assessment and Plan Assessment and plan: Admit 04/16 from ER 50 YO Female with GERD, Obesity, HLD presents to ED for evaluation. Patient reports "I cannot breathe". Patient states that she has experienced subjective fever, shortness of breath, malaise, body aches, dry cough, and shortness of breath over the past 1 week with progressively worsening symptoms over the same timeframe. EMS was notified and upon arrival the patient was found to be in distress and subsequent transported to [facility] for further care and evaluation of the aforementioned symptoms. The patient was seen and evaluated in the emergency department. All lab and imaging studies reviewed. Patient found to have a pulse oximetry of 86% with exertion on room air which is consistent with acute hypoxemic respiratory failure. Patient with chest x-ray which revealed bilateral pneumonia. Patient admitted to medical floor and initiated him on pneumonia protocol as well as coronavirus protocol. Patient knowledges fever but denies chills, chest pain, palpitation, skin rash, recent ill contacts, or known exposure to COVID-19. Prior admission on 01/21/2017 reviewed. All m edication listed at time of admission has been reconciled. Patient is unvaccinated for coronavirus infection. CXR: Bilateral Pneumonia 04/17: Patient seen and examined, still uncomfortable with Hypoxic respiratory failure and on oxygen, will continue to steroids therapy, start patient on Remdesivir, ID consulted, Pulmonary consult placed. 04/18: Patient seen and examined, she is currently being changed to High flow NC due to worsening HYPOXIA, will transfer to IMCU, Pulmonary and ID following. Will also give a dose of Lasix today. Monitor Inflammatory markers. 04/19: Patient seen and examined still on high flow due to hypoxia. Appears a bit more comfortable today than yesterday. Cough has decreased in frequency. We will continue high dose Dexameathasone to complete 10 days. continue on Remdesivir 200 mg IV q day x 1 followed by 100 mg IV q day x 4 days -Obtain q48-72h inflammatory markers - ferritin, Ddimer, CRP, LDH Will also give lasix daily for the next 3 days and monitor renal function. Family updated. Continue prone positioning as tolerated 04/20: Patient has some desaturation episodes yesterday was placed on BiPAP. Discussed with ICU team for bed availability for patient to be transferred up. Continue prone position as tolerated. 8/8: Patient remains with profound hypoxia secondary to COVID pneumonia. -Continue steroids -Continue remedesir -S/P Actmera 04/22: Patient remains on steroids and remdesivir. ABG shows persistent hypoxia. We will continue current management additional trial of Lasix for the next few days to see if any improvement. Monitor inflammatory markers as needed. Prognosis is guarded remains on high flow 04/23; patient was treated with remdesivir and Actemra. Continue steroid. Patient's prognosis is guarded. 04/24; patient is on steroid. Patient is currently on BiPAP. Prognosis is guarded. Pulmonary is following. Patient was given Lasix and Ativan. 04/25; continue steroid. Patient was on 40 L of high flow oxygen with saturation was 88%. Pulmonary is following. Prognosis is guarded. Patient was given lasix and ativan. 04/26; patient is on BiPAP and Precedex. Prognosis is guarded. 04/27; patient is on BiPAP and Precedex. Patient will finish steroid today and will start on Solu-Medrol tomorrow. Prognosis is guarded. Blood pressure is better today. Hold Lasix. 04/28 patient is on 100 Fio2 via BIPAP. moderately dyspneic, pulmonary note reviewed, lab results reviewed 04/29 no acute events- see systems review above 04/30 no acute events overnight - on airvo today- TPN started -see systems review above 05-01 no acute events overnight- tolerating airvo- see systems review above 05-02 no acute events overnight; tolerating airvo this AM- see systems review above 05/03: Patient remains on full high flow oxygen. No acute events overnight 05/04: Patient remains on BiPAP this morning at 70%. Returning to service Patient initially managed in the ICU and then transfered to the floor 06/25: Patient remains on full oxygen with high flow, encouraged to prone at night time. Spoke to Night nursing staff to ensure assisting the patient Prone. Continue steroid therapy, will discuss with Pulmonary about trying additional lasix. Plan discussed with patient and family. 06/26: Patient already on Lasix daily, Hypokalemia- Replace K. Continue to encourage Proning. Remains on high flow. Sepsis secondary to COVID 19 Acute hypoxemic respiratory failure Current Visit: Yes Status: Acute Plan to address problem: Supplemental oxygen, pulse oximetry, nebulizer therapy, proposition while in bed, noninvasive positive pressure ventilation as clinically indicated. Patient remains on high flow supplemental oxygen without much improvement of hypoxia. Will continue to attempt to wean O2 as tolerated. Pneumonia Current Visit: Yes Status: Acute Qualifiers: Aspiration pneumonia type: unspecified Laterality: unspecified laterality Lung location: unspecified part of lung Plan to address problem: Pneumonia protocol: Chest x-ray, CBC, CMP, IV antibiotic therapy, blood culture. Coronavirus infection Current Visit: Yes Status: Acute Plan to address problem: Supportive care, infectious disease service consulted. Continue medical management. Anxiety Right eye- viral conjunctivitis vs subconjunctival hemorrhage continue to monitor treated with ofloxacin ou x 5 days artificial tears has not provided relief Protein gisella malnutrition given inc metabolic demand with resp insufficiency Now off TPN Diabetes mellitus with Hyperglycemia; Noted hypoglycemia will wean down lantus. glargine HS SSI AC/HS Obesity - volume overload; hypona; hypoMg DVT prophylaxis Current Visit: Yes Status: Acute Plan to address problem: SCD to bilateral lower extremities while in bed, prophylactic anticoagulation History Interval history: Patient seen and examined, still with shortness of breath, still speaking full sentences was able to prone a little bit yesterday. Hospitalist Physical - Physical exam Narrative exam: General appearance: Absent: mild distress, Continues on High Flow 35L and 55% - EENT Eyes: Present: PERRL ENT: hearing intact, clear oral mucosa - Neck Neck: Present: supple, normal ROM - Respiratory Respiratory effort: normal Respiratory: bilateral: Diminished - Cardiovascular Heart Sounds: Present: S1 & S2. Absent: rub, click - Extremities Extremities: pulses symmetrical, No edema Peripheral Pulses: within normal limits - Abdominal General gastrointestinal: Present: soft, non-tender, non-distended, normal bowel sounds Female genitourinary: Present: normal - Integumentary Integumentary: Present: clear, warm, dry - Musculoskeletal Musculoskeletal: gait normal, strength equal bilaterally - Psychiatric Psychiatric: appropriate mood/affect, intact judgment & insight - Neurologic Neurologic: CNII-XII intact, moves all extremities - Constitutional Vitals: Temp Pulse Resp BP Pulse Ox 98.5 F 85 22 105/75 86 06/26/21 05:42 06/26/21 05:42 06/26/21 05:42 06/26/21 05:42 06/26/21 08:50 General appearance: Present: mild distress, well-nourished Results - Labs CBC & Chem 7: 06/21/21 06:45 06/26/21 07:20 Labs: Laboratory Last Values WBC 9.2 K/mm3 (4.5-11.0) 06/21/21 06:45 RBC 4.26 M/mm3 (3.65-5.03) 06/21/21 06:45 Hgb 13.5 gm/dl (10.1-14.3) 06/21/21 06:45 Hct 40.1 % (30.3-42.9) 06/21/21 06:45 MCV 94 fl (79-97) 06/21/21 06:45 MCH 32 pg (28-32) 06/21/21 06:45 MCHC 34 % (30-34) 06/21/21 06:45 RDW 20.0 % (13.2-15.2) H 06/21/21 06:45 Plt Count 285 K/mm3 (140-440) 06/21/21 06:45 Lymph % (Auto) 30.3 % (13.4-35.0) 06/21/21 06:45 [place] % (Auto) 6.5 % (0.0-7.3) 06/21/21 06:45 Eos % (Auto) 0.7 % (0.0-4.3) 06/21/21 06:45 Baso % (Auto) 0.5 % (0.0-1.8) 06/21/21 06:45 Lymph # (Auto) 2.8 K/mm3 (1.2-5.4) 06/21/21 06:45 [place] # (Auto) 0.6 K/mm3 (0.0-0.8) 06/21/21 06:45 Eos # (Auto) 0.1 K/mm3 (0.0-0.4) 06/21/21 06:45 Baso # (Auto) 0.0 K/mm3 (0.0-0.1) 06/21/21 06:45 Add Manual Diff Complete 05/12/21 04:05 Total Counted 100 05/12/21 04:05 Seg Neutrophils % 62.0 % (40.0-70.0) 06/21/21 06:45 Seg Neuts % (Manual) 94.0 % (40.0-70.0) H 05/12/21 04:05 Band Neutrophils % 1.0 % 05/12/21 04:05 Lymphocytes % (Manual) 4.0 % (13.4-35.0) L 05/12/21 04:05 Monocytes % (Manual) 1.0 % (0.0-7.3) 05/12/21 04:05 Nucleated RBC % Not Reportable 05/12/21 04:05 Seg Neutrophils # 5.7 K/mm3 (1.8-7.7) 06/21/21 06:45 Seg Neutrophils # Man 6.4 K/mm3 (1.8-7.7) 05/12/21 04:05 Band Neutrophils # 0.1 K/mm3 05/12/21 04:05 Lymphocytes # (Manual) 0.3 K/mm3 (1.2-5.4) L 05/12/21 04:05 Abs React Lymphs (Man) 0.0 K/mm3 05/12/21 04:05 Monocytes # (Manual) 0.1 K/mm3 (0.0-0.8) 05/12/21 04:05 Eosinophils # (Manual) 0.0 K/mm3 (0.0-0.4) 05/12/21 04:05 Basophils # (Manual) 0.0 K/mm3 (0.0-0.1) 05/12/21 04:05 Metamyelocytes # 0.0 K/mm3 05/12/21 04:05 Myelocytes # 0.0 K/mm3 05/12/21 04:05 Promyelocytes # 0.0 K/mm3 05/12/21 04:05 Blast Cells # 0.0 K/mm3 05/12/21 04:05 WBC Morphology Not Reportable 05/12/21 04:05 Hypersegmented Neuts Not Reportable 05/12/21 04:05 Hyposegmented Neuts Not Reportable 05/12/21 04:05 Hypogranular Neuts Not Reportable 05/12/21 04:05 Smudge Cells Not Reportable 05/12/21 04:05 Toxic Granulation Not Reportable 05/12/21 04:05 Toxic Vacuolation Not Reportable 05/12/21 04:05 Dohle Bodies Not Reportable 05/12/21 04:05 Pelger-Huet Anomaly Not Reportable 05/12/21 04:05 Janelle Rods Not Reportable 05/12/21 04:05 Platelet Estimate Consistent w auto 05/12/21 04:05 Clumped Platelets Not Reportable 05/12/21 04:05 Plt Clumps, EDTA Not Reportable 05/12/21 04:05 Large Platelets Not Reportable 05/12/21 04:05 Giant Platelets Not Reportable 05/12/21 04:05 Platelet Satelliting Not Reportable 05/12/21 04:05 Plt Morphology Comment Not Reportable 05/12/21 04:05 RBC Morphology Normal 05/12/21 04:05 Dimorphic RBCs Not Reportable 05/12/21 04:05 Polychromasia Not Reportable 05/12/21 04:05 Hypochromasia Not Reportable 05/12/21 04:05 Poikilocytosis Not Reportable 05/12/21 04:05 Anisocytosis Not Reportable 05/12/21 04:05 Microcytosis Not Reportable 05/12/21 04:05 Macrocytosis Not Reportable 05/12/21 04:05 Spherocytes Not Reportable 05/12/21 04:05 Pappenheimer Bodies Not Reportable 05/12/21 04:05 Sickle Cells Not Reportable 05/12/21 04:05 Target Cells Not Reportable 05/12/21 04:05 Tear Drop Cells Not Reportable 05/12/21 04:05 Ovalocytes Not Reportable 05/12/21 04:05 Helmet Cells Not Reportable 05/12/21 04:05 Ahuja-Fleming Bodies Not Reportable 05/12/21 04:05 Bogart Rings Not Reportable 05/12/21 04:05 [place] Cells Not Reportable 05/12/21 04:05 Bite Cells Not Reportable 05/12/21 04:05 Crenated Cell Not Reportable 05/12/21 04:05 Elliptocytes Not Reportable 05/12/21 04:05 Acanthocytes (Spur) Not Reportable 05/12/21 04:05 Rouleaux Not Reportable 05/12/21 04:05 Hemoglobin C Crystals Not Reportable 05/12/21 04:05 Schistocytes Not Reportable 05/12/21 04:05 Malaria parasites Not Reportable 05/12/21 04:05 Justin Bodies Not Reportable 05/12/21 04:05 Hem Pathologist Commnt No 05/12/21 04:05 D-Dimer 488.49 ng/mlDDU (0-234) H 06/05/21 05:26 ABG pH 7.403 pH Units (7.350-7.450) 05/14/21 02:23 POC ABG pCO2 45.4 mmHg (32.0-48.0) 05/03/21 04:49 ABG pCO2 50.2 mm Hg 05/14/21 02:23 POC ABG pO2 65.3 mmHg (83-108) L 05/03/21 04:49 ABG pO2 130.3 mm Hg (80.0-90.0) H 05/14/21 02:23 POC ABG HCO3 18.5 05/03/21 04:49 ABG HCO3 30.6 mmol/L (20.0-26.0) H 05/14/21 02:23 ABG O2 Saturation 98.5 % (95.0-99.0) 05/14/21 02:23 ABG O2 Content 17.9 (0.0-44) 05/14/21 02:23 POC ABG Base Excess -8.9 05/03/21 04:49 ABG Base Excess 4.9 mmol/L (-2.0-3.0) H 05/14/21 02:23 ABG Hemoglobin 13.0 gm/dl (12.0-16.0) 05/14/21 02:23 ABG Oxyhemoglobin 87.8 (94-98) L 05/03/21 04:49 ABG Carboxyhemoglobin 1.4 % (0.0-5.0) 05/14/21 02:23 ABG Methemoglobin 0.6 % (0.0-1.5) 05/14/21 02:23 ABG Sodium 133.0 mmol/L (136.0-145.0) L 05/03/21 04:49 ABG Potassium 3.9 mmol/L (3.40-4.50) 05/03/21 04:49 ABG Chloride 97.0 mmol/L (98-107) L 05/03/21 04:49 ABG Glucose 403 mg/dL (65-95) H 05/03/21 04:49 Oxyhemoglobin 96.5 % (95.0-99.0) 05/14/21 02:23 Carboxyhemoglobin 0.6 (0.5-1.5) 05/03/21 04:49 FiO2 90 % 05/14/21 02:23 FiO2 % 100.0 05/03/21 04:49 Sodium 142 mmol/L (137-145) 06/26/21 07:20 Potassium 3.2 mmol/L (3.6-5.0) L D 06/26/21 07:20 Chloride 100.7 mmol/L (98-107) 06/26/21 07:20 Carbon Dioxide 30 mmol/L (22-30) 06/26/21 07:20 Anion Gap 15 mmol/L 06/26/21 07:20 BUN 20 mg/dL (7-17) H 06/26/21 07:20 Creatinine 0.3 mg/dL (0.6-1.2) L 06/26/21 07:20 Estimated GFR > 60 ml/min 06/26/21 07:20 BUN/Creatinine Ratio 67 % 06/26/21 07:20 Glucose 70 mg/dL (65-100) 06/26/21 07:20 POC Glucose 87 mg/dL (70-105) 06/26/21 08:00 Hemoglobin A1c 8.5 % (4-6) H 04/18/21 07:36 Calcium 9.4 mg/dL (8.4-10.2) 06/26/21 07:20 Phosphorus 3.60 mg/dL (2.5-4.5) 05/06/21 05:00 Magnesium 2.00 mg/dL (1.7-2.3) 05/06/21 05:00 Ferritin 187.7 ng/mL (10.0-200.0) 06/05/21 05:26 Total Bilirubin 0.30 mg/dL (0.1-1.2) 06/26/21 07:20 AST 25 units/L (5-40) 06/26/21 07:20 ALT 77 units/L (7-56) H 06/26/21 07:20 Alkaline Phosphatase 61 units/L (35-129) 06/26/21 07:20 Lactate Dehydrogenase 475 units/L (91-180) H 06/05/21 05:26 C-Reactive Protein 0.10 mg/dL (0.00-1.30) 06/05/21 05:26 Total Protein 6.5 g/dL (6.3-8.2) 06/26/21 07:20 Albumin 3.3 g/dL (3.9-5) L 06/26/21 07:20 Albumin/Globulin Ratio 1.0 % 06/26/21 07:20 Triglycerides < 9 mg/dL (2-149) 05/03/21 04:30 Procalcitonin < 0.05 ng/mL (<0.15) 05/23/21 09:50 Arterial Blood Glucose 403 mg/dL (65-95) H 05/03/21 04:49 Arterial Blood Ionized Calcium 4.9 mg/dL (4.6-5.3) 05/03/21 04:49 Coronavirus (PCR) Positive (Negative) A 06/05/21 08:30 Amos/IV: Voiding Method Bedpan Active Medications - Current Medications Current Medications: Generic Name Dose Route Start Last Admin Trade Name Freq PRN Reason Stop Dose Admin Acetaminophen 650 mg 04/16/21 14:00 06/24/21 18:23 Acetaminophen 325 Mg Tab PO 650 mg Q4H PRN Administration Pain MILD(1-3)/Fever >100.5/[place] Albuterol 2.5 mg 04/16/21 13:39 04/21/21 20:39 Albuterol 2.5 Mg/3 Ml Nebu IH 2.5 mg Q4HRT PRN Administration Shortness Of Breath Ascorbic Acid 500 mg 04/24/21 10:00 06/26/21 09:05 Ascorbic Acid 500 Mg Tab PO 500 mg QDAY TUTU Administration Bisacodyl 10 mg 06/10/21 18:00 Bisacodyl 10 Mg Rect Supp MI QDAY PRN Constipation Cholecalciferol 1,000 unit 04/17/21 10:00 06/26/21 09:04 Cholecalciferol (Vit D3) 1000 Unit (25 Mcg) Tab PO 1,000 unit QDAY TUTU Administration Clonazepam 1 mg 05/29/21 08:06 06/23/21 10:26 Clonazepam 0.5 Mg Tab PO 1 mg Q8H PRN Administration Anxiety Dextrose 50 ml 04/18/21 07:30 04/28/21 09:59 Dextrose 50% In Water (25gm) 50 Ml Syringe IV 50 ml Q30MIN PRN Administration Hypoglycemia Protocol Docusate Sodium 100 mg 04/30/21 10:00 06/26/21 09:05 Docusate Sodium 100 Mg Cap PO 100 mg BID TUTU Administration Enoxaparin Sodium 40 mg 05/19/21 22:00 06/25/21 22:53 Enoxaparin 40 Mg/0.4 Ml Inj SUB-Q 40 mg QDAY@2200 TUTU Administration Protocol Furosemide 40 mg 06/07/21 10:00 06/26/21 09:04 Furosemide 40 Mg/4 Ml Inj IV 40 mg QDAY TUTU Administration Insulin Glargine 15 units 06/25/21 10:00 06/26/21 09:05 Insulin Glargine 100 Units/Ml SUB-Q 15 units DAILY TUTU Administration Insulin Human Lispro 0 unit 05/18/21 12:00 06/26/21 08:22 Insulin Lispro 100 Unit/Ml SUB-Q Not Given ACHS TUTU Protocol Lorazepam 1 mg 05/25/21 14:40 06/11/21 23:55 Lorazepam 2 Mg/Ml Vial IV 1 mg Q6H PRN Administration Agitation Magnesium Hydroxide 30 ml 06/07/21 16:30 06/11/21 11:06 Magnesium Hydroxide (Mom) Oral Liqd Udc PO 30 ml QDAY PRN Administration Constipation Ondansetron HCl 4 mg 04/16/21 14:00 05/30/21 10:07 Ondansetron 4 Mg/2 Ml Inj IV 4 mg Q8H PRN Administration Nausea And Vomiting Prednisone 40 mg 06/20/21 11:36 06/26/21 09:05 Prednisone 20 Mg Tab PO 40 mg QDAY TUTU Administration Senna 17.2 mg 05/02/21 22:00 06/25/21 22:53 Sennosides 8.6 Mg Tab PO 17.2 mg QHS TUTU Administration Sodium Chloride 10 ml 04/16/21 22:00 06/26/21 09:05 Sodium Chloride 0.9% 10 Ml Flush Syringe IV 10 ml BID TUTU Administration Sodium Chloride 10 ml 04/16/21 13:39 05/22/21 15:21 Sodium Chloride 0.9% 10 Ml Flush Syringe IV 10 ml PRN PRN Administration LINE FLUSH Zinc Sulfate 220 mg 04/16/21 22:00 06/26/21 09:04 Zinc Sulfate 220 Mg Cap PO 220 mg BID TUTU Administration Zolpidem Tartrate 10 mg 05/26/21 08:56 06/25/21 22:53 Zolpidem 5 Mg Tab PO 10 mg QHS PRN Administration Insomnia Nutrition/Malnutrition Assess - Dietary Evaluation Nutrition/Malnutrition Findings: Nutrition Notes Start: 04/23/21 07:41 Freq: Status: Active Protocol: Document 06/04/21 11:07 FABIAN (Rec: 06/04/21 11:07 [id number]) Nutrition Notes Initial or Follow up Brief Note Current Diagnosis Respiratory Failure Other Pertinent Diagnosis oral thrush, COVID-19 pneu Current Diet GI soft Subjective/Other Information Pt continues to eat 75-100% of meals. Nutrition Intervention Revisit per MD consult or patient Sign Off request:
[2021-06-26] MEDS ORDERED: POTASSIUM CHLORIDE ER 20 MEQ TAB PO NR (10:00)
--- NOTE | 2021-06-26 15:55 | Progress Note ---
Assessment and Plan 50 y/o female with acute respiratory failure secondary to COVID19 pneumonia. 06/26/21: Will drop steroids down to 20 starting tomorrow. Prone. Continue to wean as tolerated. 06/24/21: Continue Pred, will drop to 20 daily tomorrow. Prone if able. Hopeful they can wean FiO2 more. May need to consider increasing flow for a while. 06/21/21: Continue pred at 40, will decrease likely Thursday/Thursday to 20 daily. Prone if able. Continue to wean as tolerated. Prognosis still remains guarded. 06/20/21: Will drop steroids down to 40 today. Proning. Continue to wean FiO2. 06/18/21: Wean Fio2 for sats >88%. Please encourage proning. Drop steroids down to 40 on . 06/14/21: Continue oral steroid therapy. Will do further weaning next week. Wean for sats >88% and prone as tolerated. Will see as needed over the weekend. 06/13/21: Will change to prednisone 60 daily starting tomorrow. Prone if able and wean for sats >88% 06/11/21: no new recs, will change to oral steroids tomorrow, continue to prone if able and wean for sats >88% 06/10/21: Will change to oral steroids on Thursday to begin prolonged taper 06/06/21: Continue to wean as tolerated, will drop steroids on tomorrow. 06/04/21: Clinically no change. Will drop steroids down the end of this week. 05/31/21: Clinically no change. Not eligible for LTACH. Encourage Proning. Will drop steroids down to 40 q8 05/29/21: No acute changes clinically. Still on HFNC but not really able to wean. Continue to encourage proning. Will drop steroids further on Thursday. 05/27/21: No improvement over the weekend but also no worsening. No other strategies to offer. Please continue to encourage patient to prone. I dropped steroids on yesterday. Will wean more later in the week. 05/24/21: No new recs again for today. Will see as needed over the weekend but follow chart peripherally for changes. 05/22/21: No new recs for today. Prognosis remains guarded. 05/21/21: Wean as tolerated. Prone if able. Guarded prognosis 05/20/21: COntinue current level of care. 05/17/21: Prone if possible. Wean FiO2 for sats >88%. Continue scheduled ativan. Prognosis is very very guarded. Unfunded so not a candidate for LTACH 05/16/21: Prone if willing. Wean FIO2 if patient will allow. Anxiety control. Prognosis still remains very guarded. 05/15/21: Not sure if MAR is accurate but may have only gotten one dose of scheduled anixolytic therapy. Continue proning as tolerated, and wean FiO2 and flow for sats >88%. Prognosi remains very very guarded to poor. 05/14/21: Will discontinue the buspar and make the ativan scheduled but will do q6 as oppose to q4 and attempt to leave parameters for nursing when not to give. If anxiety could be controlled, feel that patient could be weaned further. She has no funding so she is not a candidate for LTACH. Prone if possible. Guarded prognosis. This is her day. 05/13/21: Ordered buspar 10 BID to start with to help with anxiety. Please continue to wean FiO2 as tolerated. Will remind nurse that there is PRN ativan available. Continue higher doses of steroids. Prone if able. 05/12/21: Patient may need something longer acting for anxiety. Per chart has not gotten any ativan in days. Would be ok with either buspar or low dose klonopin bid. COntinue higher doses of steroids as patient seems to be responding. Prone if possible. 05/11/21: Continue high doses of steroids and continue to wean for sats >88%. Please encourage proning. 05/10/21: Will continue this dose of steroid at least through the weekend and assess for improvement. will speak with RT about aggressive weaning. Full dose anticoagulation continues. Very very guarded to poor prognosis. 05/09/21: Going to consider increasing steroids to 125q8, maybe as early as tomorrow. continue full dose anticoagulation. 05/08/21: Continue anticoagulation and steroids. Prone if possible. Anxiety control. No objection to CTA if this can happen. Very very guarded prognosis. 05/07/21: Spoke with IMS, not opposed to full dose anticoagulation. If patient goes back on NRB HFNC combo may need to consider restarting PPN again. Encourage proning. Guarded prognosis. 05/06/21: Continue to wean FiO2 and flow for sats >88%. Tolerating diet now so will stop PPN. Continue anxiety control. Continue IV steroids. Would not object to transfer to COVID floor if bed available. Not sure why she was titrated back up to 100% from 85 as all sats documented in the RT's notes were acceptable. Same for under vital signs as well. 05/03/21: Set back last night from yesterday. Continue bipap therapy for now an d attempt HFNC maybe later this afternoon. Continue to use PRN ativan but may need to schedule as she likely took off mask from anxiety. Continue IV steroids. Hold on transfer to [facility] Floor. 05/02/21: Continue to wean FiO2 as tolerated for sats >88%. Will continue bipap at night. Patient has no funding so not a candidate for LTACH. Given that she has been stable and not requiring the combo of HFNC and NRB, will consider moving to COVID floor. 05/01/21: Continue to wean FiO2 for sats >88%. A sat of 90 is more than acceptable and oxygen should not be increased for this unless patient desats and remains at a sat lower than 88. Bipap at night to give some form of relief and HFNC during the day. Currently on just this alone which is improvement. Ok with daily diuresis but must monitor renal function and BP closely. She was over diuresed last week and we ended up giving fluid back. Prognosis remains guarded. 04/30/21: Will start CLinimix today for nutritional support, without electrolytes. Check labs in am. Prone if able. Continue precedx for anxiety. Very very guarded prognosis. Attempting our best to not intubate. 04/29/21: Continue precedex. Continue IV solumedrol. Prone if able. Guarded prognosis. 04/28/21: Continue Precedex. Picc team attempting to place line now. Stable on Bipap. Ordered steroids IV solumedrol to start today. Prognosis remains gu arded, still at very high risk for intubation. 04/27/21: Hypotension improving/improved. Hold on any further lasix dosing. Continue precedex to help with anxeity. later today please attempt HFNC with NRB if needed. Attempt to feed if possible. Steroids end today, please order solumedrol 40q8 to start tomorrow (04/28/21). guarded prognosis. 04/26/21: Hypotension today, most likely from precedex use and diuresis that I did the last several days. Will bolus again today. Consider midodrine if BP does not respond. 04/25/21: Lasix again today. Keep PRN ativan for now. Hold on precedex for now. Guarded prognosis. Labs ordered for tomorrow. 04/24/21: Lasix today. Will also start patient on low dose PRN ativan. If this does not help will then try precedex. Guarded prognosis. 04/23/21: Prone as tolerated. No lasix today. Continue decadron. Guarded prognosis. High risk for intubation and high mortality with intubation. 04/19/21: Prone as tolerated during the day and sleep prone at night. Continue IV remdesivir and steroids. Did get actemra. Guarded prognosis. 1. Daily net negative state 2. Prone if possible 3. IV remdesivir. 4. Should be a candidate for Actemra 5. IV steroids 6. Guarded Prognosis Subjective Date of service: 06/26/21 Principal diagnosis: Covid-19 Objective Vital Signs - 12hr 06/26/21 06/26/21 06/26/21 05:42 08:49 08:50 Temperature 98.5 F Pulse Rate 85 Respiratory 22 Rate Blood Pressure 105/75 O2 Sat by Pulse 93 92 86 Oximetry 06/26/21 12:21 Temperature 97.7 F Pulse Rate 108 H Respiratory 24 Rate Blood Pressure 112/74 O2 Sat by Pulse 89 Oximetry Constitutional: no acute distress, alert Eyes: non-icteric ENT: oropharynx moist Neck: supple Effort: normal Ascultation: Bilateral: diminished breath sounds Cardiovascular: regular rate and rhythm Gastrointestinal: normoactive bowel sounds, soft, non-tender, non-distended Integumentary: normal Extremities: no cyanosis, no edema, pink and warm Neurologic: normal mental status, non-focal exam, pupils equal and round, CN II- XII normal Psychiatric: mood appropriate, affect normal CBC and BMP: 06/21/21 06:45 06/26/21 07:20 ABG, PT/INR, D-dimer: ABG ABG pH 7.403 pH Units (7.350-7.450) 05/14/21 02:23 POC ABG pCO2 45.4 mmHg (32.0-48.0) 05/03/21 04:49 ABG pCO2 50.2 mm Hg 05/14/21 02:23 POC ABG pO2 65.3 mmHg (83-108) L 05/03/21 04:49 ABG pO2 130.3 mm Hg (80.0-90.0) H 05/14/21 02:23 POC ABG HCO3 18.5 05/03/21 04:49 ABG O2 Saturation 98.5 % (95.0-99.0) 05/14/21 02:23 PT/INR, D-dimer D-Dimer 488.49 ng/mlDDU (0-234) H 06/05/21 05:26 Abnormal lab findings: Abnormal Labs 04/16/21 04/16/21 04/16/21 11:42 11:42 11:42 WBC MCH MCHC RDW 16.1 H Lymph % (Auto) 7.8 L Lymph # (Auto) 0.8 L Baso # (Auto) Seg Neutrophils % 87.7 H Seg Neuts % (Manual) Lymphocytes % (Manual) Seg Neutrophils # 8.5 H Seg Neutrophils # Man Lymphocytes # (Manual) D-Dimer 338.70 H ABG pH POC ABG pO2 ABG pO2 ABG HCO3 ABG O2 Saturation ABG Base Excess ABG Oxyhemoglobin ABG Sodium ABG Chloride ABG Glucose Oxyhemoglobin Carboxyhemoglobin Sodium Potassium Chloride Carbon Dioxide BUN Creatinine Glucose 194 H POC Glucose Hemoglobin A1c Ferritin AST ALT Alkaline Phosphatase Lactate Dehydrogenase C-Reactive Protein Total Protein 8.4 H Albumin 3.8 L Arterial Blood Glucose Coronavirus (PCR) 04/16/21 04/16/21 04/17/21 11:42 11:42 03:50 WBC MCH MCHC RDW 16.0 H Lymph % (Auto) 7.7 L Lymph # (Auto) 0.6 L Baso # (Auto) Seg Neutrophils % 89.8 H Seg Neuts % (Manual) Lymphocytes % (Manual) Seg Neutrophils # Seg Neutrophils # Man Lymphocytes # (Manual) D-Dimer ABG pH POC ABG pO2 ABG pO2 ABG HCO3 ABG O2 Saturation ABG Base Excess ABG Oxyhemoglobin ABG Sodium ABG Chloride ABG Glucose Oxyhemoglobin Carboxyhemoglobin Sodium Potassium Chloride Carbon Dioxide BUN Creatinine Glucose 195 H POC Glucose Hemoglobin A1c Ferritin 254.3 H AST ALT Alkaline Phosphatase Lactate Dehydrogenase 359 H C-Reactive Protein 15.20 H Total Protein Albumin Arterial Blood Glucose Coronavirus (PCR) 04/17/21 04/17/21 04/17/21 03:50 08:26 08:26 WBC MCH MCHC RDW Lymph % (Auto) Lymph # (Auto) Baso # (Auto) Seg Neutrophils % Seg Neuts % (Manual) Lymphocytes % (Manual) Seg Neutrophils # Seg Neutrophils # Man Lymphocytes # (Manual) D-Dimer 262.48 H ABG pH POC ABG pO2 ABG pO2 ABG HCO3 ABG O2 Saturation ABG Base Excess ABG Oxyhemoglobin ABG Sodium ABG Chloride ABG Glucose Oxyhemoglobin Carboxyhemoglobin Sodium Potassium Chloride Carbon Dioxide BUN 20 H Creatinine 0.5 L Glucose 249 H 225 H POC Glucose Hemoglobin A1c Ferritin AST ALT Alkaline Phosphatase Lactate Dehydrogenase 338 H C-Reactive Protein 17.20 H Total Protein Albumin 3.2 L Arterial Blood Glucose Coronavirus (PCR) 04/17/21 04/17/21 04/17/21 08:26 15:04 Unknown WBC MCH MCHC RDW Lymph % (Auto) Lymph # (Auto) Baso # (Auto) Seg Neutrophils % Seg Neuts % (Manual) Lymphocytes % (Manual) Seg Neutrophils # Seg Neutrophils # Man Lymphocytes # (Manual) D-Dimer ABG pH POC ABG pO2 ABG pO2 ABG HCO3 ABG O2 Saturation ABG Base Excess ABG Oxyhemoglobin ABG Sodium ABG Chloride ABG Glucose Oxyhemoglobin Carboxyhemoglobin Sodium Potassium Chloride Carbon Dioxide BUN 20 H Creatinine 0.5 L Glucose 246 H POC Glucose Hemoglobin A1c Ferritin 392.0 H AST ALT Alkaline Phosphatase Lactate Dehydrogenase C-Reactive Protein Total Protein 8.3 H Albumin 3.1 L Arterial Blood Glucose Coronavirus (PCR) Positive A 04/18/21 04/18/21 04/18/21 05:06 05:06 07:36 WBC 11.6 H MCH MCHC RDW 16.1 H Lymph % (Auto) Lymph # (Auto) Baso # (Auto) Seg Neutrophils % Seg Neuts % (Manual) Lymphocytes % (Manual) Seg Neutrophils # Seg Neutrophils # Man Lymphocytes # (Manual) D-Dimer ABG pH POC ABG pO2 ABG pO2 ABG HCO3 ABG O2 Saturation ABG Base Excess ABG Oxyhemoglobin ABG Sodium ABG Chloride ABG Glucose Oxyhemoglobin Carboxyhemoglobin Sodium Potassium 5.2 H Chloride Carbon Dioxide BUN 22 H Creatinine 0.5 L Glucose 315 H POC Glucose Hemoglobin A1c 8.5 H Ferritin AST ALT Alkaline Phosphatase Lactate Dehydrogenase C-Reactive Protein Total Protein Albumin 3.3 L Arterial Blood Glucose Coronavirus (PCR) 04/18/21 04/18/21 04/18/21 11:59 16:43 23:24 WBC MCH MCHC RDW Lymph % (Auto) Lymph # (Auto) Baso # (Auto) Seg Neutrophils % Seg Neuts % (Manual) Lymphocytes % (Manual) Seg Neutrophils # Seg Neutrophils # Man Lymphocytes # (Manual) D-Dimer ABG pH POC ABG pO2 ABG pO2 ABG HCO3 ABG O2 Saturation ABG Base Excess ABG Oxyhemoglobin ABG Sodium ABG Chloride ABG Glucose Oxyhemoglobin Carboxyhemoglobin Sodium Potassium Chloride Carbon Dioxide BUN Creatinine Glucose POC Glucose 284 H 273 H 290 H Hemoglobin A1c Ferritin AST ALT Alkaline Phosphatase Lactate Dehydrogenase C-Reactive Protein Total Protein Albumin Arterial Blood Glucose Coronavirus (PCR) 04/19/21 04/19/21 04/19/21 04:19 04:19 08:10 WBC MCH MCHC RDW 15.7 H Lymph % (Auto) Lymph # (Auto) Baso # (Auto) Seg Neutrophils % Seg Neuts % (Manual) Lymphocytes % (Manual) Seg Neutrophils # Seg Neutrophils # Man Lymphocytes # (Manual) D-Dimer ABG pH POC ABG pO2 ABG pO2 ABG HCO3 ABG O2 Saturation ABG Base Excess ABG Oxyhemoglobin ABG Sodium ABG Chloride ABG Glucose Oxyhemoglobin Carboxyhemoglobin Sodium Potassium Chloride Carbon Dioxide BUN 27 H Creatinine 0.4 L Glucose 184 H POC Glucose 194 H Hemoglobin A1c Ferritin AST ALT Alkaline Phosphatase Lactate Dehydrogenase C-Reactive Protein Total Protein Albumin 3.1 L Arterial Blood Glucose Coronavirus (PCR) 04/19/21 04/19/21 04/19/21 11:38 16:25 22:04 WBC MCH MCHC RDW Lymph % (Auto) Lymph # (Auto) Baso # (Auto) Seg Neutrophils % Seg Neuts % (Manual) Lymphocytes % (Manual) Seg Neutrophils # Seg Neutrophils # Man Lymphocytes # (Manual) D-Dimer ABG pH POC ABG pO2 ABG pO2 ABG HCO3 ABG O2 Saturation ABG Base Excess ABG Oxyhemoglobin ABG Sodium ABG Chloride ABG Glucose Oxyhemoglobin Carboxyhemoglobin Sodium Potassium Chloride Carbon Dioxide BUN Creatinine Glucose POC Glucose 224 H 297 H 251 H Hemoglobin A1c Ferritin AST ALT Alkaline Phosphatase Lactate Dehydrogenase C-Reactive Protein Total Protein Albumin Arterial Blood Glucose Coronavirus (PCR) 04/20/21 04/20/21 04/20/21 05:28 08:43 16:21 WBC MCH MCHC RDW Lymph % (Auto) Lymph # (Auto) Baso # (Auto) Seg Neutrophils % Seg Neuts % (Manual) Lymphocytes % (Manual) Seg Neutrophils # Seg Neutrophils # Man Lymphocytes # (Manual) D-Dimer ABG pH POC ABG pO2 ABG pO2 ABG HCO3 ABG O2 Saturation ABG Base Excess ABG Oxyhemoglobin ABG Sodium ABG Chloride ABG Glucose Oxyhemoglobin Carboxyhemoglobin Sodium Potassium Chloride Carbon Dioxide BUN 27 H Creatinine Glucose 192 H POC Glucose 173 H 253 H Hemoglobin A1c Ferritin AST ALT Alkaline Phosphatase Lactate Dehydrogenase C-Reactive Protein Total Protein Albumin 3.0 L Arterial Blood Glucose Coronavirus (PCR) 04/21/21 04/21/21 04/21/21 07:58 12:05 16:08 WBC MCH MCHC RDW Lymph % (Auto) Lymph # (Auto) Baso # (Auto) Seg Neutrophils % Seg Neuts % (Manual) Lymphocytes % (Manual) Seg Neutrophils # Seg Neutrophils # Man Lymphocytes # (Manual) D-Dimer ABG pH POC ABG pO2 ABG pO2 ABG HCO3 ABG O2 Saturation ABG Base Excess ABG Oxyhemoglobin ABG Sodium ABG Chloride ABG Glucose Oxyhemoglobin Carboxyhemoglobin Sodium Potassium Chloride Carbon Dioxide BUN Creatinine Glucose POC Glucose 140 H 252 H 214 H Hemoglobin A1c Ferritin AST ALT Alkaline Phosphatase Lactate Dehydrogenase C-Reactive Protein Total Protein Albumin Arterial Blood Glucose Coronavirus (PCR) 04/21/21 04/22/21 04/22/21 21:42 08:37 12:01 WBC MCH MCHC RDW Lymph % (Auto) Lymph # (Auto) Baso # (Auto) Seg Neutrophils % Seg Neuts % (Manual) Lymphocytes % (Manual) Seg Neutrophils # Seg Neutrophils # Man Lymphocytes # (Manual) D-Dimer ABG pH 7.457 H POC ABG pO2 49.4 L ABG pO2 ABG HCO3 ABG O2 Saturation ABG Base Excess ABG Oxyhemoglobin 85.6 L ABG Sodium ABG Chloride ABG Glucose 121 H Oxyhemoglobin Carboxyhemoglobin 0.3 L Sodium Potassium Chloride Carbon Dioxide BUN Creatinine Glucose POC Glucose 162 H 227 H Hemoglobin A1c Ferritin AST ALT Alkaline Phosphatase Lactate Dehydrogenase C-Reactive Protein Total Protein Albumin Arterial Blood Glucose 121 H Coronavirus (PCR) 04/22/21 04/22/21 04/23/21 16:26 22:23 04:52 WBC MCH MCHC RDW 15.7 H Lymph % (Auto) Lymph # (Auto) Baso # (Auto) Seg Neutrophils % Seg Neuts % (Manual) Lymphocytes % (Manual) Seg Neutrophils # Seg Neutrophils # Man Lymphocytes # (Manual) D-Dimer ABG pH POC ABG pO2 ABG pO2 ABG HCO3 ABG O2 Saturation ABG Base Excess ABG Oxyhemoglobin ABG Sodium ABG Chloride ABG Glucose Oxyhemoglobin Carboxyhemoglobin Sodium Potassium Chloride Carbon Dioxide BUN Creatinine Glucose POC Glucose 200 H 136 H Hemoglobin A1c Ferritin AST ALT Alkaline Phosphatase Lactate Dehydrogenase C-Reactive Protein Total Protein Albumin Arterial Blood Glucose Coronavirus (PCR) 04/23/21 04/23/21 04/23/21 04:52 12:06 17:41 WBC MCH MCHC RDW Lymph % (Auto) Lymph # (Auto) Baso # (Auto) Seg Neutrophils % Seg Neuts % (Manual) Lymphocytes % (Manual) Seg Neutrophils # Seg Neutrophils # Man Lymphocytes # (Manual) D-Dimer ABG pH POC ABG pO2 ABG pO2 ABG HCO3 ABG O2 Saturation ABG Base Excess ABG Oxyhemoglobin ABG Sodium ABG Chloride ABG Glucose Oxyhemoglobin Carboxyhemoglobin Sodium 136 L Potassium Chloride 97.7 L Carbon Dioxide BUN 23 H Creatinine Glucose 101 H POC Glucose 202 H 169 H Hemoglobin A1c Ferritin AST 46 H ALT Alkaline Phosphatase Lactate Dehydrogenase C-Reactive Protein Total Protein Albumin 3.3 L Arterial Blood Glucose Coronavirus (PCR) 04/23/21 04/24/21 04/24/21 23:08 05:17 08:38 WBC MCH MCHC RDW Lymph % (Auto) Lymph # (Auto) Baso # (Auto) Seg Neutrophils % Seg Neuts % (Manual) Lymphocytes % (Manual) Seg Neutrophils # Seg Neutrophils # Man Lymphocytes # (Manual) D-Dimer ABG pH POC ABG pO2 ABG pO2 ABG HCO3 ABG O2 Saturation ABG Base Excess ABG Oxyhemoglobin ABG Sodium ABG Chloride ABG Glucose Oxyhemoglobin Carboxyhemoglobin Sodium Potassium Chloride Carbon Dioxide BUN Creatinine Glucose POC Glucose 111 H 108 H 126 H Hemoglobin A1c Ferritin AST ALT Alkaline Phosphatase Lactate Dehydrogenase C-Reactive Protein Total Protein Albumin Arterial Blood Glucose Coronavirus (PCR) 04/24/21 04/24/21 04/24/21 11:54 17:57 21:23 WBC MCH MCHC RDW Lymph % (Auto) Lymph # (Auto) Baso # (Auto) Seg Neutrophils % Seg Neuts % (Manual) Lymphocytes % (Manual) Seg Neutrophils # Seg Neutrophils # Man Lymphocytes # (Manual) D-Dimer ABG pH POC ABG pO2 ABG pO2 ABG HCO3 ABG O2 Saturation ABG Base Excess ABG Oxyhemoglobin ABG Sodium ABG Chloride ABG Glucose Oxyhemoglobin Carboxyhemoglobin Sodium Potassium Chloride Carbon Dioxide BUN Creatinine Glucose POC Glucose 147 H 177 H 138 H Hemoglobin A1c Ferritin AST ALT Alkaline Phosphatase Lactate Dehydrogenase C-Reactive Protein Total Protein Albumin Arterial Blood Glucose Coronavirus (PCR) 04/25/21 04/25/21 04/25/21 07:06 11:23 15:43 WBC MCH MCHC RDW Lymph % (Auto) Lymph # (Auto) Baso # (Auto) Seg Neutrophils % Seg Neuts % (Manual) Lymphocytes % (Manual) Seg Neutrophils # Seg Neutrophils # Man Lymphocytes # (Manual) D-Dimer ABG pH POC ABG pO2 ABG pO2 ABG HCO3 ABG O2 Saturation ABG Base Excess ABG Oxyhemoglobin ABG Sodium ABG Chloride ABG Glucose Oxyhemoglobin Carboxyhemoglobin Sodium Potassium Chloride Carbon Dioxide BUN Creatinine Glucose POC Glucose 147 H 169 H 227 H Hemoglobin A1c Ferritin AST ALT Alkaline Phosphatase Lactate Dehydrogenase C-Reactive Protein Total Protein Albumin Arterial Blood Glucose Coronavirus (PCR) 04/25/21 04/26/21 04/26/21 21:22 02:45 05:15 WBC MCH MCHC RDW Lymph % (Auto) Lymph # (Auto) Baso # (Auto) Seg Neutrophils % Seg Neuts % (Manual) Lymphocytes % (Manual) Seg Neutrophils # Seg Neutrophils # Man Lymphocytes # (Manual) D-Dimer ABG pH POC ABG pO2 70.7 L ABG pO2 ABG HCO3 ABG O2 Saturation ABG Base Excess ABG Oxyhemoglobin 93.0 L ABG Sodium 132.7 L ABG Chloride ABG Glucose 115 H Oxyhemoglobin Carboxyhemoglobin Sodium Potassium Chloride 95.8 L Carbon Dioxide 32 H BUN 20 H Creatinine Glucose 102 H POC Glucose 196 H Hemoglobin A1c Ferritin AST ALT Alkaline Phosphatase Lactate Dehydrogenase C-Reactive Protein Total Protein Albumin Arterial Blood Glucose 115 H Coronavirus (PCR) 04/26/21 04/26/21 04/26/21 11:49 16:09 21:07 WBC MCH MCHC RDW Lymph % (Auto) Lymph # (Auto) Baso # (Auto) Seg Neutrophils % Seg Neuts % (Manual) Lymphocytes % (Manual) Seg Neutrophils # Seg Neutrophils # Man Lymphocytes # (Manual) D-Dimer ABG pH POC ABG pO2 ABG pO2 ABG HCO3 ABG O2 Saturation ABG Base Excess ABG Oxyhemoglobin ABG Sodium ABG Chloride ABG Glucose Oxyhemoglobin Carboxyhemoglobin Sodium Potassium Chloride Carbon Dioxide BUN Creatinine Glucose POC Glucose 114 H 188 H 136 H Hemoglobin A1c Ferritin AST ALT Alkaline Phosphatase Lactate Dehydrogenase C-Reactive Protein Total Protein Albumin Arterial Blood Glucose Coronavirus (PCR) 04/27/21 04/27/21 04/28/21 17:34 22:12 08:26 WBC MCH MCHC RDW Lymph % (Auto) Lymph # (Auto) Baso # (Auto) Seg Neutrophils % Seg Neuts % (Manual) Lymphocytes % (Manual) Seg Neutrophils # Seg Neutrophils # Man Lymphocytes # (Manual) D-Dimer ABG pH POC ABG pO2 ABG pO2 ABG HCO3 ABG O2 Saturation ABG Base Excess ABG Oxyhemoglobin ABG Sodium ABG Chloride ABG Glucose Oxyhemoglobin Carboxyhemoglobin Sodium Potassium Chloride Carbon Dioxide BUN Creatinine Glucose POC Glucose 128 H 159 H 69 L Hemoglobin A1c Ferritin AST ALT Alkaline Phosphatase Lactate Dehydrogenase C-Reactive Protein Total Protein Albumin Arterial Blood Glucose Coronavirus (PCR) 04/28/21 04/28/21 04/29/21 12:22 21:11 06:05 WBC MCH MCHC RDW Lymph % (Auto) Lymph # (Auto) Baso # (Auto) Seg Neutrophils % Seg Neuts % (Manual) Lymphocytes % (Manual) Seg Neutrophils # Seg Neutrophils # Man Lymphocytes # (Manual) D-Dimer ABG pH POC ABG pO2 ABG pO2 ABG HCO3 ABG O2 Saturation ABG Base Excess ABG Oxyhemoglobin ABG Sodium ABG Chloride ABG Glucose Oxyhemoglobin Carboxyhemoglobin Sodium 132 L Potassium Chloride 94.4 L Carbon Dioxide BUN Creatinine 0.2 L D Glucose 140 H POC Glucose 141 H 171 H Hemoglobin A1c Ferritin AST ALT Alkaline Phosphatase Lactate Dehydrogenase C-Reactive Protein Total Protein Albumin Arterial Blood Glucose Coronavirus (PCR) 04/29/21 04/29/21 04/29/21 06:05 07:24 11:36 WBC MCH MCHC 35 H RDW 15.9 H Lymph % (Auto) Lymph # (Auto) Baso # (Auto) Seg Neutrophils % Seg Neuts % (Manual) Lymphocytes % (Manual) Seg Neutrophils # Seg Neutrophils # Man Lymphocytes # (Manual) D-Dimer ABG pH POC ABG pO2 ABG pO2 ABG HCO3 ABG O2 Saturation ABG Base Excess ABG Oxyhemoglobin ABG Sodium ABG Chloride ABG Glucose Oxyhemoglobin Carboxyhemoglobin Sodium Potassium Chloride Carbon Dioxide BUN Creatinine Glucose POC Glucose 141 H 220 H Hemoglobin A1c Ferritin AST ALT Alkaline Phosphatase Lactate Dehydrogenase C-Reactive Protein Total Protein Albumin Arterial Blood Glucose Coronavirus (PCR) 04/29/21 04/29/21 04/29/21 14:23 15:30 17:06 WBC MCH MCHC RDW Lymph % (Auto) Lymph # (Auto) Baso # (Auto) Seg Neutrophils % Seg Neuts % (Manual) Lymphocytes % (Manual) Seg Neutrophils # Seg Neutrophils # Man Lymphocytes # (Manual) D-Dimer ABG pH POC ABG pO2 ABG pO2 52.6 L ABG HCO3 ABG O2 Saturation 86.4 L ABG Base Excess ABG Oxyhemoglobin ABG Sodium ABG Chloride ABG Glucose Oxyhemoglobin 84.6 L Carboxyhemoglobin Sodium Potassium Chloride Carbon Dioxide BUN Creatinine Glucose POC Glucose 173 H 158 H Hemoglobin A1c Ferritin AST ALT Alkaline Phosphatase Lactate Dehydrogenase C-Reactive Protein Total Protein Albumin Arterial Blood Glucose Coronavirus (PCR) 04/29/21 04/30/21 04/30/21 21:27 07:16 08:00 WBC MCH MCHC RDW 16.1 H Lymph % (Auto) Lymph # (Auto) Baso # (Auto) Seg Neutrophils % Seg Neuts % (Manual) Lymphocytes % (Manual) Seg Neutrophils # Seg Neutrophils # Man Lymphocytes # (Manual) D-Dimer ABG pH POC ABG pO2 ABG pO2 ABG HCO3 ABG O2 Saturation ABG Base Excess ABG Oxyhemoglobin ABG Sodium ABG Chloride ABG Glucose Oxyhemoglobin Carboxyhemoglobin Sodium Potassium Chloride Carbon Dioxide BUN Creatinine Glucose POC Glucose 244 H 175 H Hemoglobin A1c Ferritin AST ALT Alkaline Phosphatase Lactate Dehydrogenase C-Reactive Protein Total Protein Albumin Arterial Blood Glucose Coronavirus (PCR) 04/30/21 04/30/21 04/30/21 08:00 08:00 11:03 WBC MCH MCHC RDW Lymph % (Auto) Lymph # (Auto) Baso # (Auto) Seg Neutrophils % Seg Neuts % (Manual) Lymphocytes % (Manual) Seg Neutrophils # Seg Neutrophils # Man Lymphocytes # (Manual) D-Dimer 1796.87 H ABG pH POC ABG pO2 ABG pO2 ABG HCO3 ABG O2 Saturation ABG Base Excess ABG Oxyhemoglobin ABG Sodium ABG Chloride ABG Glucose Oxyhemoglobin Carboxyhemoglobin Sodium 135 L Potassium Chloride 96.3 L Carbon Dioxide BUN Creatinine 0.2 L Glucose 153 H POC Glucose 183 H Hemoglobin A1c Ferritin AST 41 H ALT 76 H Alkaline Phosphatase 160 H Lactate Dehydrogenase 522 H C-Reactive Protein Total Protein 6.1 L Albumin 3.1 L Arterial Blood Glucose Coronavirus (PCR) 04/30/21 04/30/21 05/01/21 17:04 22:17 05:39 WBC MCH MCHC RDW Lymph % (Auto) Lymph # (Auto) Baso # (Auto) Seg Neutrophils % Seg Neuts % (Manual) Lymphocytes % (Manual) Seg Neutrophils # Seg Neutrophils # Man Lymphocytes # (Manual) D-Dimer ABG pH POC ABG pO2 ABG pO2 ABG HCO3 ABG O2 Saturation ABG Base Excess ABG Oxyhemoglobin ABG Sodium ABG Chloride ABG Glucose Oxyhemoglobin Carboxyhemoglobin Sodium 133 L Potassium Chloride 92.1 L Carbon Dioxide BUN 24 H Creatinine 0.4 L D Glucose 269 H POC Glucose 167 H 208 H Hemoglobin A1c Ferritin AST ALT 66 H Alkaline Phosphatase 142 H Lactate Dehydrogenase C-Reactive Protein Total Protein Albumin 3.2 L Arterial Blood Glucose Coronavirus (PCR) 05/01/21 05/01/21 05/01/21 05:39 05:39 07:45 WBC MCH MCHC RDW 16.0 H Lymph % (Auto) Lymph # (Auto) Baso # (Auto) Seg Neutrophils % Seg Neuts % (Manual) Lymphocytes % (Manual) Seg Neutrophils # Seg Neutrophils # Man Lymphocytes # (Manual) D-Dimer 3984.95 H ABG pH POC ABG pO2 ABG pO2 ABG HCO3 ABG O2 Saturation ABG Base Excess ABG Oxyhemoglobin ABG Sodium ABG Chloride ABG Glucose Oxyhemoglobin Carboxyhemoglobin Sodium Potassium Chloride Carbon Dioxide BUN Creatinine Glucose POC Glucose 229 H Hemoglobin A1c Ferritin AST ALT Alkaline Phosphatase Lactate Dehydrogenase C-Reactive Protein Total Protein Albumin Arterial Blood Glucose Coronavirus (PCR) 05/01/21 05/01/21 05/01/21 12:10 15:46 21:06 WBC MCH MCHC RDW Lymph % (Auto) Lymph # (Auto) Baso # (Auto) Seg Neutrophils % Seg Neuts % (Manual) Lymphocytes % (Manual) Seg Neutrophils # Seg Neutrophils # Man Lymphocytes # (Manual) D-Dimer ABG pH POC ABG pO2 ABG pO2 ABG HCO3 ABG O2 Saturation ABG Base Excess ABG Oxyhemoglobin ABG Sodium ABG Chloride ABG Glucose Oxyhemoglobin Carboxyhemoglobin Sodium Potassium Chloride Carbon Dioxide BUN Creatinine Glucose POC Glucose 296 H 279 H 232 H Hemoglobin A1c Ferritin AST ALT Alkaline Phosphatase Lactate Dehydrogenase C-Reactive Protein Total Protein Albumin Arterial Blood Glucose Coronavirus (PCR) 05/02/21 05/02/21 05/02/21 04:55 04:55 04:55 WBC MCH MCHC RDW 16.1 H Lymph % (Auto) Lymph # (Auto) Baso # (Auto) Seg Neutrophils % Seg Neuts % (Manual) Lymphocytes % (Manual) Seg Neutrophils # Seg Neutrophils # Man Lymphocytes # (Manual) D-Dimer 1401.08 H ABG pH POC ABG pO2 ABG pO2 ABG HCO3 ABG O2 Saturation ABG Base Excess ABG Oxyhemoglobin ABG Sodium ABG Chloride ABG Glucose Oxyhemoglobin Carboxyhemoglobin Sodium 131 L Potassium Chloride 95.5 L Carbon Dioxide BUN 20 H Creatinine 0.3 L Glucose 288 H POC Glucose Hemoglobin A1c Ferritin AST ALT Alkaline Phosphatase Lactate Dehydrogenase C-Reactive Protein Total Protein 6.0 L Albumin 3.1 L Arterial Blood Glucose Coronavirus (PCR) 05/02/21 05/02/21 05/02/21 07:53 11:45 15:25 WBC MCH MCHC RDW Lymph % (Auto) Lymph # (Auto) Baso # (Auto) Seg Neutrophils % Seg Neuts % (Manual) Lymphocytes % (Manual) Seg Neutrophils # Seg Neutrophils # Man Lymphocytes # (Manual) D-Dimer ABG pH POC ABG pO2 ABG pO2 ABG HCO3 ABG O2 Saturation ABG Base Excess ABG Oxyhemoglobin ABG Sodium ABG Chloride ABG Glucose Oxyhemoglobin Carboxyhemoglobin Sodium Potassium Chloride Carbon Dioxide BUN Creatinine Glucose POC Glucose 180 H 228 H 275 H Hemoglobin A1c Ferritin AST ALT Alkaline Phosphatase Lactate Dehydrogenase C-Reactive Protein Total Protein Albumin Arterial Blood Glucose Coronavirus (PCR) 05/02/21 05/03/21 05/03/21 22:56 04:30 04:49 WBC MCH MCHC RDW Lymph % (Auto) Lymph # (Auto) Baso # (Auto) Seg Neutrophils % Seg Neuts % (Manual) Lymphocytes % (Manual) Seg Neutrophils # Seg Neutrophils # Man Lymphocytes # (Manual) D-Dimer ABG pH 7.229 L POC ABG pO2 65.3 L ABG pO2 ABG HCO3 ABG O2 Saturation ABG Base Excess ABG Oxyhemoglobin 87.8 L ABG Sodium 133.0 L ABG Chloride 97.0 L ABG Glucose 403 H Oxyhemoglobin Carboxyhemoglobin Sodium 130 L Potassium Chloride 94.9 L Carbon Dioxide BUN 20 H Creatinine 0.5 L D Glucose 359 H POC Glucose 293 H Hemoglobin A1c Ferritin AST 54 H ALT 75 H Alkaline Phosphatase 138 H Lactate Dehydrogenase C-Reactive Protein Total Protein Albumin 3.6 L Arterial Blood Glucose 403 H Coronavirus (PCR) 05/03/21 05/03/21 05/03/21 05:27 11:26 17:57 WBC MCH MCHC RDW Lymph % (Auto) Lymph # (Auto) Baso # (Auto) Seg Neutrophils % Seg Neuts % (Manual) Lymphocytes % (Manual) Seg Neutrophils # Seg Neutrophils # Man Lymphocytes # (Manual) D-Dimer ABG pH POC ABG pO2 ABG pO2 ABG HCO3 ABG O2 Saturation ABG Base Excess ABG Oxyhemoglobin ABG Sodium ABG Chloride ABG Glucose Oxyhemoglobin Carboxyhemoglobin Sodium Potassium Chloride Carbon Dioxide BUN Creatinine Glucose POC Glucose 361 H 297 H 226 H Hemoglobin A1c Ferritin AST ALT Alkaline Phosphatase Lactate Dehydrogenase C-Reactive Protein Total Protein Albumin Arterial Blood Glucose Coronavirus (PCR) 05/03/21 05/04/21 05/04/21 23:12 05:12 07:30 WBC MCH MCHC RDW Lymph % (Auto) Lymph # (Auto) Baso # (Auto) Seg Neutrophils % Seg Neuts % (Manual) Lymphocytes % (Manual) Seg Neutrophils # Seg Neutrophils # Man Lymphocytes # (Manual) D-Dimer ABG pH POC ABG pO2 ABG pO2 ABG HCO3 ABG O2 Saturation ABG Base Excess ABG Oxyhemoglobin ABG Sodium ABG Chloride ABG Glucose Oxyhemoglobin Carboxyhemoglobin Sodium Potassium Chloride Carbon Dioxide BUN Creatinine Glucose POC Glucose 282 H 285 H 254 H Hemoglobin A1c Ferritin AST ALT Alkaline Phosphatase Lactate Dehydrogenase C-Reactive Protein Total Protein Albumin Arterial Blood Glucose Coronavirus (PCR) 05/04/21 05/04/21 05/04/21 08:58 11:45 16:07 WBC MCH MCHC RDW Lymph % (Auto) Lymph # (Auto) Baso # (Auto) Seg Neutrophils % Seg Neuts % (Manual) Lymphocytes % (Manual) Seg Neutrophils # Seg Neutrophils # Man Lymphocytes # (Manual) D-Dimer ABG pH POC ABG pO2 ABG pO2 ABG HCO3 ABG O2 Saturation ABG Base Excess ABG Oxyhemoglobin ABG Sodium ABG Chloride ABG Glucose Oxyhemoglobin Carboxyhemoglobin Sodium 134 L Potassium Chloride Carbon Dioxide BUN 20 H Creatinine 0.3 L Glucose 267 H POC Glucose 244 H 297 H Hemoglobin A1c Ferritin AST ALT Alkaline Phosphatase Lactate Dehydrogenase C-Reactive Protein Total Protein 6.0 L Albumin 3.2 L Arterial Blood Glucose Coronavirus (PCR) 05/04/21 05/05/21 05/05/21 23:32 05:00 05:13 WBC MCH MCHC RDW Lymph % (Auto) Lymph # (Auto) Baso # (Auto) Seg Neutrophils % Seg Neuts % (Manual) Lymphocytes % (Manual) Seg Neutrophils # Seg Neutrophils # Man Lymphocytes # (Manual) D-Dimer ABG pH POC ABG pO2 ABG pO2 ABG HCO3 ABG O2 Saturation ABG Base Excess ABG Oxyhemoglobin ABG Sodium ABG Chloride ABG Glucose Oxyhemoglobin Carboxyhemoglobin Sodium 132 L Potassium Chloride 96.4 L Carbon Dioxide BUN 22 H Creatinine 0.3 L Glucose 228 H POC Glucose 154 H 260 H Hemoglobin A1c Ferritin AST ALT 67 H Alkaline Phosphatase Lactate Dehydrogenase C-Reactive Protein Total Protein 6.1 L Albumin 3.2 L Arterial Blood Glucose Coronavirus (PCR) 05/05/21 05/05/21 05/05/21 11:32 17:49 23:07 WBC MCH MCHC RDW Lymph % (Auto) Lymph # (Auto) Baso # (Auto) Seg Neutrophils % Seg Neuts % (Manual) Lymphocytes % (Manual) Seg Neutrophils # Seg Neutrophils # Man Lymphocytes # (Manual) D-Dimer ABG pH POC ABG pO2 ABG pO2 ABG HCO3 ABG O2 Saturation ABG Base Excess ABG Oxyhemoglobin ABG Sodium ABG Chloride ABG Glucose Oxyhemoglobin Carboxyhemoglobin Sodium Potassium Chloride Carbon Dioxide BUN Creatinine Glucose POC Glucose 279 H 308 H 213 H Hemoglobin A1c Ferritin AST ALT Alkaline Phosphatase Lactate Dehydrogenase C-Reactive Protein Total Protein Albumin Arterial Blood Glucose Coronavirus (PCR) 05/06/21 05/06/21 05/06/21 05:00 05:00 05:20 WBC MCH MCHC RDW 16.8 H Lymph % (Auto) Lymph # (Auto) Baso # (Auto) Seg Neutrophils % Seg Neuts % (Manual) 99.0 H Lymphocytes % (Manual) Seg Neutrophils # Seg Neutrophils # Man 10.9 H Lymphocytes # (Manual) 0.0 L D-Dimer ABG pH POC ABG pO2 ABG pO2 ABG HCO3 ABG O2 Saturation ABG Base Excess ABG Oxyhemoglobin ABG Sodium ABG Chloride ABG Glucose Oxyhemoglobin Carboxyhemoglobin Sodium 133 L Potassium Chloride Carbon Dioxide BUN 21 H Creatinine 0.3 L Glucose 259 H POC Glucose 308 H Hemoglobin A1c Ferritin AST ALT Alkaline Phosphatase Lactate Dehydrogenase C-Reactive Protein Total Protein Albumin 3.2 L Arterial Blood Glucose Coronavirus (PCR) 05/06/21 05/06/21 05/06/21 11:24 17:54 21:32 WBC MCH MCHC RDW Lymph % (Auto) Lymph # (Auto) Baso # (Auto) Seg Neutrophils % Seg Neuts % (Manual) Lymphocytes % (Manual) Seg Neutrophils # Seg Neutrophils # Man Lymphocytes # (Manual) D-Dimer ABG pH POC ABG pO2 ABG pO2 ABG HCO3 ABG O2 Saturation ABG Base Excess ABG Oxyhemoglobin ABG Sodium ABG Chloride ABG Glucose Oxyhemoglobin Carboxyhemoglobin Sodium Potassium Chloride Carbon Dioxide BUN Creatinine Glucose POC Glucose 262 H 124 H 246 H Hemoglobin A1c Ferritin AST ALT Alkaline Phosphatase Lactate Dehydrogenase C-Reactive Protein Total Protein Albumin Arterial Blood Glucose Coronavirus (PCR) 05/06/21 05/07/21 05/07/21 23:10 04:54 04:54 WBC MCH MCHC RDW Lymph % (Auto) Lymph # (Auto) Baso # (Auto) Seg Neutrophils % Seg Neuts % (Manual) Lymphocytes % (Manual) Seg Neutrophils # Seg Neutrophils # Man Lymphocytes # (Manual) D-Dimer 1609.28 H ABG pH POC ABG pO2 ABG pO2 ABG HCO3 ABG O2 Saturation ABG Base Excess ABG Oxyhemoglobin ABG Sodium ABG Chloride ABG Glucose Oxyhemoglobin Carboxyhemoglobin Sodium 136 L Potassium Chloride Carbon Dioxide BUN 23 H Creatinine 0.3 L Glucose 110 H POC Glucose 249 H Hemoglobin A1c Ferritin AST ALT Alkaline Phosphatase Lactate Dehydrogenase C-Reactive Protein Total Protein 6.2 L Albumin 3.0 L Arterial Blood Glucose Coronavirus (PCR) 05/07/21 05/07/21 05/07/21 04:54 04:54 11:41 WBC MCH MCHC RDW Lymph % (Auto) Lymph # (Auto) Baso # (Auto) Seg Neutrophils % Seg Neuts % (Manual) Lymphocytes % (Manual) Seg Neutrophils # Seg Neutrophils # Man Lymphocytes # (Manual) D-Dimer ABG pH POC ABG pO2 ABG pO2 ABG HCO3 ABG O2 Saturation ABG Base Excess ABG Oxyhemoglobin ABG Sodium ABG Chloride ABG Glucose Oxyhemoglobin Carboxyhemoglobin Sodium Potassium Chloride Carbon Dioxide BUN Creatinine Glucose POC Glucose 118 H Hemoglobin A1c Ferritin 296.1 H AST ALT Alkaline Phosphatase Lactate Dehydrogenase 724 H C-Reactive Protein Total Protein Albumin Arterial Blood Glucose Coronavirus (PCR) 05/07/21 05/07/21 05/08/21 16:43 22:34 06:44 WBC MCH MCHC RDW Lymph % (Auto) Lymph # (Auto) Baso # (Auto) Seg Neutrophils % Seg Neuts % (Manual) Lymphocytes % (Manual) Seg Neutrophils # Seg Neutrophils # Man Lymphocytes # (Manual) D-Dimer ABG pH POC ABG pO2 ABG pO2 ABG HCO3 ABG O2 Saturation ABG Base Excess ABG Oxyhemoglobin ABG Sodium ABG Chloride ABG Glucose Oxyhemoglobin Carboxyhemoglobin Sodium Potassium Chloride Carbon Dioxide BUN Creatinine Glucose POC Glucose 159 H 233 H 235 H Hemoglobin A1c Ferritin AST ALT Alkaline Phosphatase Lactate Dehydrogenase C-Reactive Protein Total Protein Albumin Arterial Blood Glucose Coronavirus (PCR) 05/08/21 05/08/21 05/08/21 07:49 11:56 17:13 WBC MCH MCHC RDW Lymph % (Auto) Lymph # (Auto) Baso # (Auto) Seg Neutrophils % Seg Neuts % (Manual) Lymphocytes % (Manual) Seg Neutrophils # Seg Neutrophils # Man Lymphocytes # (Manual) D-Dimer ABG pH POC ABG pO2 ABG pO2 ABG HCO3 ABG O2 Saturation ABG Base Excess ABG Oxyhemoglobin ABG Sodium ABG Chloride ABG Glucose Oxyhemoglobin Carboxyhemoglobin Sodium Potassium Chloride Carbon Dioxide BUN Creatinine Glucose POC Glucose 219 H 184 H 182 H Hemoglobin A1c Ferritin AST ALT Alkaline Phosphatase Lactate Dehydrogenase C-Reactive Protein Total Protein Albumin Arterial Blood Glucose Coronavirus (PCR) 05/08/21 05/09/21 05/09/21 23:35 05:20 05:20 WBC MCH MCHC RDW Lymph % (Auto) Lymph # (Auto) Baso # (Auto) Seg Neutrophils % Seg Neuts % (Manual) Lymphocytes % (Manual) Seg Neutrophils # Seg Neutrophils # Man Lymphocytes # (Manual) D-Dimer 1003.87 H ABG pH POC ABG pO2 ABG pO2 ABG HCO3 ABG O2 Saturation ABG Base Excess ABG Oxyhemoglobin ABG Sodium ABG Chloride ABG Glucose Oxyhemoglobin Carboxyhemoglobin Sodium Potassium Chloride Carbon Dioxide BUN Creatinine Glucose POC Glucose 198 H Hemoglobin A1c Ferritin 378.7 H AST ALT Alkaline Phosphatase Lactate Dehydrogenase C-Reactive Protein Total Protein Albumin Arterial Blood Glucose Coronavirus (PCR) 05/09/21 05/09/21 05/09/21 05:20 06:04 12:53 WBC MCH MCHC RDW Lymph % (Auto) Lymph # (Auto) Baso # (Auto) Seg Neutrophils % Seg Neuts % (Manual) Lymphocytes % (Manual) Seg Neutrophils # Seg Neutrophils # Man Lymphocytes # (Manual) D-Dimer ABG pH POC ABG pO2 ABG pO2 ABG HCO3 ABG O2 Saturation ABG Base Excess ABG Oxyhemoglobin ABG Sodium ABG Chloride ABG Glucose Oxyhemoglobin Carboxyhemoglobin Sodium Potassium Chloride Carbon Dioxide BUN Creatinine Glucose POC Glucose 159 H 180 H Hemoglobin A1c Ferritin AST ALT Alkaline Phosphatase Lactate Dehydrogenase 558 H C-Reactive Protein 2.40 H Total Protein Albumin Arterial Blood Glucose Coronavirus (PCR) 05/09/21 05/09/21 05/10/21 16:43 21:27 10:18 WBC MCH MCHC RDW Lymph % (Auto) Lymph # (Auto) Baso # (Auto) Seg Neutrophils % Seg Neuts % (Manual) Lymphocytes % (Manual) Seg Neutrophils # Seg Neutrophils # Man Lymphocytes # (Manual) D-Dimer ABG pH POC ABG pO2 ABG pO2 ABG HCO3 ABG O2 Saturation ABG Base Excess ABG Oxyhemoglobin ABG Sodium ABG Chloride ABG Glucose Oxyhemoglobin Carboxyhemoglobin Sodium Potassium Chloride Carbon Dioxide BUN Creatinine Glucose POC Glucose 212 H 285 H 261 H Hemoglobin A1c Ferritin AST ALT Alkaline Phosphatase Lactate Dehydrogenase C-Reactive Protein Total Protein Albumin Arterial Blood Glucose Coronavirus (PCR) 05/10/21 05/10/21 05/11/21 17:58 18:02 00:29 WBC MCH MCHC RDW Lymph % (Auto) Lymph # (Auto) Baso # (Auto) Seg Neutrophils % Seg Neuts % (Manual) Lymphocytes % (Manual) Seg Neutrophils # Seg Neutrophils # Man Lymphocytes # (Manual) D-Dimer ABG pH POC ABG pO2 ABG pO2 ABG HCO3 ABG O2 Saturation ABG Base Excess ABG Oxyhemoglobin ABG Sodium ABG Chloride ABG Glucose Oxyhemoglobin Carboxyhemoglobin Sodium Potassium Chloride Carbon Dioxide BUN Creatinine Glucose POC Glucose 213 H 179 H 149 H Hemoglobin A1c Ferritin AST ALT Alkaline Phosphatase Lactate Dehydrogenase C-Reactive Protein Total Protein Albumin Arterial Blood Glucose Coronavirus (PCR) 05/11/21 05/11/21 05/11/21 05:22 11:32 17:00 WBC 14.9 H MCH MCHC RDW 18.9 H Lymph % (Auto) 4.9 L Lymph # (Auto) 0.7 L Baso # (Auto) 0.2 H Seg Neutrophils % Seg Neuts % (Manual) Lymphocytes % (Manual) Seg Neutrophils # 13.3 H Seg Neutrophils # Man Lymphocytes # (Manual) D-Dimer ABG pH POC ABG pO2 ABG pO2 ABG HCO3 ABG O2 Saturation ABG Base Excess ABG Oxyhemoglobin ABG Sodium ABG Chloride ABG Glucose Oxyhemoglobin Carboxyhemoglobin Sodium Potassium Chloride Carbon Dioxide BUN Creatinine Glucose POC Glucose 162 H 179 H Hemoglobin A1c Ferritin AST ALT Alkaline Phosphatase Lactate Dehydrogenase C-Reactive Protein Total Protein Albumin Arterial Blood Glucose Coronavirus (PCR) 05/11/21 05/11/21 05/11/21 17:00 17:33 22:03 WBC MCH MCHC RDW Lymph % (Auto) Lymph # (Auto) Baso # (Auto) Seg Neutrophils % Seg Neuts % (Manual) Lymphocytes % (Manual) Seg Neutrophils # Seg Neutrophils # Man Lymphocytes # (Manual) D-Dimer ABG pH POC ABG pO2 ABG pO2 ABG HCO3 ABG O2 Saturation ABG Base Excess ABG Oxyhemoglobin ABG Sodium ABG Chloride ABG Glucose Oxyhemoglobin Carboxyhemoglobin Sodium 135 L Potassium Chloride 97.3 L Carbon Dioxide BUN 21 H Creatinine 0.3 L Glucose 133 H POC Glucose 140 H 282 H Hemoglobin A1c Ferritin AST ALT 60 H Alkaline Phosphatase Lactate Dehydrogenase C-Reactive Protein Total Protein Albumin 3.1 L Arterial Blood Glucose Coronavirus (PCR) 05/12/21 05/12/21 05/12/21 04:05 04:05 04:05 WBC MCH MCHC RDW 18.4 H Lymph % (Auto) Lymph # (Auto) Baso # (Auto) Seg Neutrophils % Seg Neuts % (Manual) 94.0 H Lymphocytes % (Manual) 4.0 L Seg Neutrophils # Seg Neutrophils # Man Lymphocytes # (Manual) 0.3 L D-Dimer ABG pH POC ABG pO2 ABG pO2 ABG HCO3 ABG O2 Saturation ABG Base Excess ABG Oxyhemoglobin ABG Sodium ABG Chloride ABG Glucose Oxyhemoglobin Carboxyhemoglobin Sodium 136 L Potassium Chloride Carbon Dioxide BUN 18 H Creatinine 0.2 L Glucose 142 H POC Glucose Hemoglobin A1c Ferritin 350.7 H AST ALT Alkaline Phosphatase Lactate Dehydrogenase 546 H C-Reactive Protein Total Protein 6.1 L Albumin 3.0 L Arterial Blood Glucose Coronavirus (PCR) 05/12/21 05/12/21 05/12/21 05:11 11:17 16:27 WBC MCH MCHC RDW Lymph % (Auto) Lymph # (Auto) Baso # (Auto) Seg Neutrophils % Seg Neuts % (Manual) Lymphocytes % (Manual) Seg Neutrophils # Seg Neutrophils # Man Lymphocytes # (Manual) D-Dimer ABG pH POC ABG pO2 ABG pO2 ABG HCO3 ABG O2 Saturation ABG Base Excess ABG Oxyhemoglobin ABG Sodium ABG Chloride ABG Glucose Oxyhemoglobin Carboxyhemoglobin Sodium Potassium Chloride Carbon Dioxide BUN Creatinine Glucose POC Glucose 152 H 190 H 261 H Hemoglobin A1c Ferritin AST ALT Alkaline Phosphatase Lactate Dehydrogenase C-Reactive Protein Total Protein Albumin Arterial Blood Glucose Coronavirus (PCR) 05/12/21 05/13/21 05/13/21 20:55 11:08 21:41 WBC MCH MCHC RDW Lymph % (Auto) Lymph # (Auto) Baso # (Auto) Seg Neutrophils % Seg Neuts % (Manual) Lymphocytes % (Manual) Seg Neutrophils # Seg Neutrophils # Man Lymphocytes # (Manual) D-Dimer ABG pH POC ABG pO2 ABG pO2 ABG HCO3 ABG O2 Saturation ABG Base Excess ABG Oxyhemoglobin ABG Sodium ABG Chloride ABG Glucose Oxyhemoglobin Carboxyhemoglobin Sodium Potassium Chloride Carbon Dioxide BUN Creatinine Glucose POC Glucose 231 H 106 H 174 H Hemoglobin A1c Ferritin AST ALT Alkaline Phosphatase Lactate Dehydrogenase C-Reactive Protein Total Protein Albumin Arterial Blood Glucose Coronavirus (PCR) 05/14/21 05/14/21 05/14/21 00:53 02:23 06:06 WBC MCH MCHC RDW Lymph % (Auto) Lymph # (Auto) Baso # (Auto) Seg Neutrophils % Seg Neuts % (Manual) Lymphocytes % (Manual) Seg Neutrophils # Seg Neutrophils # Man Lymphocytes # (Manual) D-Dimer ABG pH POC ABG pO2 ABG pO2 130.3 H ABG HCO3 30.6 H ABG O2 Saturation ABG Base Excess 4.9 H ABG Oxyhemoglobin ABG Sodium ABG Chloride ABG Glucose Oxyhemoglobin Carboxyhemoglobin Sodium Potassium Chloride Carbon Dioxide BUN Creatinine Glucose POC Glucose 229 H 119 H Hemoglobin A1c Ferritin AST ALT Alkaline Phosphatase Lactate Dehydrogenase C-Reactive Protein Total Protein Albumin Arterial Blood Glucose Coronavirus (PCR) 05/14/21 05/14/21 05/14/21 07:13 07:13 07:13 WBC MCH MCHC RDW Lymph % (Auto) Lymph # (Auto) Baso # (Auto) Seg Neutrophils % Seg Neuts % (Manual) Lymphocytes % (Manual) Seg Neutrophils # Seg Neutrophils # Man Lymphocytes # (Manual) D-Dimer 712.80 H ABG pH POC ABG pO2 ABG pO2 ABG HCO3 ABG O2 Saturation ABG Base Excess ABG Oxyhemoglobin ABG Sodium ABG Chloride ABG Glucose Oxyhemoglobin Carboxyhemoglobin Sodium 133 L Potassium Chloride 95.5 L Carbon Dioxide 32 H BUN Creatinine 0.2 L Glucose 137 H POC Glucose Hemoglobin A1c Ferritin 283.5 H AST ALT 63 H Alkaline Phosphatase Lactate Dehydrogenase 563 H C-Reactive Protein Total Protein 6.1 L Albumin 3.0 L Arterial Blood Glucose Coronavirus (PCR) 05/14/21 05/14/21 05/14/21 12:21 15:33 21:50 WBC MCH MCHC RDW Lymph % (Auto) Lymph # (Auto) Baso # (Auto) Seg Neutrophils % Seg Neuts % (Manual) Lymphocytes % (Manual) Seg Neutrophils # Seg Neutrophils # Man Lymphocytes # (Manual) D-Dimer ABG pH POC ABG pO2 ABG pO2 ABG HCO3 ABG O2 Saturation ABG Base Excess ABG Oxyhemoglobin ABG Sodium ABG Chloride ABG Glucose Oxyhemoglobin Carboxyhemoglobin Sodium Potassium Chloride Carbon Dioxide BUN Creatinine Glucose POC Glucose 143 H 204 H 202 H Hemoglobin A1c Ferritin AST ALT Alkaline Phosphatase Lactate Dehydrogenase C-Reactive Protein Total Protein Albumin Arterial Blood Glucose Coronavirus (PCR) 05/15/21 05/15/21 05/15/21 05:05 11:12 16:39 WBC MCH MCHC RDW Lymph % (Auto) Lymph # (Auto) Baso # (Auto) Seg Neutrophils % Seg Neuts % (Manual) Lymphocytes % (Manual) Seg Neutrophils # Seg Neutrophils # Man Lymphocytes # (Manual) D-Dimer ABG pH POC ABG pO2 ABG pO2 ABG HCO3 ABG O2 Saturation ABG Base Excess ABG Oxyhemoglobin ABG Sodium ABG Chloride ABG Glucose Oxyhemoglobin Carboxyhemoglobin Sodium Potassium Chloride Carbon Dioxide BUN Creatinine Glucose POC Glucose 125 H 201 H 241 H Hemoglobin A1c Ferritin AST ALT Alkaline Phosphatase Lactate Dehydrogenase C-Reactive Protein Total Protein Albumin Arterial Blood Glucose Coronavirus (PCR) 05/15/21 05/16/21 05/16/21 21:31 05:04 10:40 WBC MCH MCHC RDW Lymph % (Auto) Lymph # (Auto) Baso # (Auto) Seg Neutrophils % Seg Neuts % (Manual) Lymphocytes % (Manual) Seg Neutrophils # Seg Neutrophils # Man Lymphocytes # (Manual) D-Dimer ABG pH POC ABG pO2 ABG pO2 ABG HCO3 ABG O2 Saturation ABG Base Excess ABG Oxyhemoglobin ABG Sodium ABG Chloride ABG Glucose Oxyhemoglobin Carboxyhemoglobin Sodium Potassium Chloride Carbon Dioxide BUN Creatinine Glucose POC Glucose 234 H 123 H 231 H Hemoglobin A1c Ferritin AST ALT Alkaline Phosphatase Lactate Dehydrogenase C-Reactive Protein Total Protein Albumin Arterial Blood Glucose Coronavirus (PCR) 05/16/21 05/16/21 05/17/21 18:23 21:29 06:20 WBC MCH MCHC RDW 18.8 H Lymph % (Auto) 10.2 L Lymph # (Auto) 0.8 L Baso # (Auto) Seg Neutrophils % 85.8 H Seg Neuts % (Manual) Lymphocytes % (Manual) Seg Neutrophils # Seg Neutrophils # Man Lymphocytes # (Manual) D-Dimer ABG pH POC ABG pO2 ABG pO2 ABG HCO3 ABG O2 Saturation ABG Base Excess ABG Oxyhemoglobin ABG Sodium ABG Chloride ABG Glucose Oxyhemoglobin Carboxyhemoglobin Sodium Potassium Chloride Carbon Dioxide BUN Creatinine Glucose POC Glucose 266 H 234 H Hemoglobin A1c Ferritin AST ALT Alkaline Phosphatase Lactate Dehydrogenase C-Reactive Protein Total Protein Albumin Arterial Blood Glucose Coronavirus (PCR) 05/17/21 05/17/21 05/17/21 06:20 11:06 16:36 WBC MCH MCHC RDW Lymph % (Auto) Lymph # (Auto) Baso # (Auto) Seg Neutrophils % Seg Neuts % (Manual) Lymphocytes % (Manual) Seg Neutrophils # Seg Neutrophils # Man Lymphocytes # (Manual) D-Dimer ABG pH POC ABG pO2 ABG pO2 ABG HCO3 ABG O2 Saturation ABG Base Excess ABG Oxyhemoglobin ABG Sodium ABG Chloride ABG Glucose Oxyhemoglobin Carboxyhemoglobin Sodium Potassium Chloride Carbon Dioxide 33 H BUN Creatinine 0.2 L Glucose 101 H POC Glucose 209 H 180 H Hemoglobin A1c Ferritin AST ALT Alkaline Phosphatase Lactate Dehydrogenase C-Reactive Protein Total Protein Albumin Arterial Blood Glucose Coronavirus (PCR) 05/17/21 05/18/21 05/18/21 21:06 12:00 15:06 WBC MCH MCHC RDW Lymph % (Auto) Lymph # (Auto) Baso # (Auto) Seg Neutrophils % Seg Neuts % (Manual) Lymphocytes % (Manual) Seg Neutrophils # Seg Neutrophils # Man Lymphocytes # (Manual) D-Dimer 874.02 H ABG pH POC ABG pO2 ABG pO2 ABG HCO3 ABG O2 Saturation ABG Base Excess ABG Oxyhemoglobin ABG Sodium ABG Chloride ABG Glucose Oxyhemoglobin Carboxyhemoglobin Sodium Potassium Chloride Carbon Dioxide BUN Creatinine Glucose POC Glucose 256 H 139 H Hemoglobin A1c Ferritin AST ALT Alkaline Phosphatase Lactate Dehydrogenase C-Reactive Protein Total Protein Albumin Arterial Blood Glucose Coronavirus (PCR) 05/18/21 05/18/21 05/18/21 15:06 15:06 16:08 WBC MCH MCHC RDW Lymph % (Auto) Lymph # (Auto) Baso # (Auto) Seg Neutrophils % Seg Neuts % (Manual) Lymphocytes % (Manual) Seg Neutrophils # Seg Neutrophils # Man Lymphocytes # (Manual) D-Dimer ABG pH POC ABG pO2 ABG pO2 ABG HCO3 ABG O2 Saturation ABG Base Excess ABG Oxyhemoglobin ABG Sodium ABG Chloride ABG Glucose Oxyhemoglobin Carboxyhemoglobin Sodium Potassium Chloride Carbon Dioxide BUN Creatinine Glucose POC Glucose 178 H Hemoglobin A1c Ferritin 289.6 H AST ALT Alkaline Phosphatase Lactate Dehydrogenase 605 H C-Reactive Protein Total Protein Albumin Arterial Blood Glucose Coronavirus (PCR) 05/18/21 05/19/21 05/19/21 21:22 11:57 15:26 WBC MCH MCHC RDW Lymph % (Auto) Lymph # (Auto) Baso # (Auto) Seg Neutrophils % Seg Neuts % (Manual) Lymphocytes % (Manual) Seg Neutrophils # Seg Neutrophils # Man Lymphocytes # (Manual) D-Dimer ABG pH POC ABG pO2 ABG pO2 ABG HCO3 ABG O2 Saturation ABG Base Excess ABG Oxyhemoglobin ABG Sodium ABG Chloride ABG Glucose Oxyhemoglobin Carboxyhemoglobin Sodium Potassium Chloride Carbon Dioxide BUN Creatinine Glucose POC Glucose 241 H 201 H 209 H Hemoglobin A1c Ferritin AST ALT Alkaline Phosphatase Lactate Dehydrogenase C-Reactive Protein Total Protein Albumin Arterial Blood Glucose Coronavirus (PCR) 05/19/21 05/20/21 05/20/21 20:59 07:38 08:01 WBC MCH MCHC RDW 19.7 H Lymph % (Auto) 8.3 L Lymph # (Auto) 0.8 L Baso # (Auto) Seg Neutrophils % 88.6 H Seg Neuts % (Manual) Lymphocytes % (Manual) Seg Neutrophils # 8.4 H Seg Neutrophils # Man Lymphocytes # (Manual) D-Dimer ABG pH POC ABG pO2 ABG pO2 ABG HCO3 ABG O2 Saturation ABG Base Excess ABG Oxyhemoglobin ABG Sodium ABG Chloride ABG Glucose Oxyhemoglobin Carboxyhemoglobin Sodium Potassium Chloride Carbon Dioxide BUN Creatinine Glucose POC Glucose 226 H 130 H Hemoglobin A1c Ferritin AST ALT Alkaline Phosphatase Lactate Dehydrogenase C-Reactive Protein Total Protein Albumin Arterial Blood Glucose Coronavirus (PCR) 05/20/21 05/20/21 05/20/21 08:01 11:00 16:43 WBC MCH MCHC RDW Lymph % (Auto) Lymph # (Auto) Baso # (Auto) Seg Neutrophils % Seg Neuts % (Manual) Lymphocytes % (Manual) Seg Neutrophils # Seg Neutrophils # Man Lymphocytes # (Manual) D-Dimer ABG pH POC ABG pO2 ABG pO2 ABG HCO3 ABG O2 Saturation ABG Base Excess ABG Oxyhemoglobin ABG Sodium ABG Chloride ABG Glucose Oxyhemoglobin Carboxyhemoglobin Sodium Potassium Chloride Carbon Dioxide BUN 18 H Creatinine 0.2 L Glucose 132 H POC Glucose 237 H 240 H Hemoglobin A1c Ferritin AST ALT Alkaline Phosphatase Lactate Dehydrogenase C-Reactive Protein Total Protein Albumin Arterial Blood Glucose Coronavirus (PCR) 05/20/21 05/21/21 05/21/21 21:21 07:35 11:32 WBC MCH MCHC RDW Lymph % (Auto) Lymph # (Auto) Baso # (Auto) Seg Neutrophils % Seg Neuts % (Manual) Lymphocytes % (Manual) Seg Neutrophils # Seg Neutrophils # Man Lymphocytes # (Manual) D-Dimer ABG pH POC ABG pO2 ABG pO2 ABG HCO3 ABG O2 Saturation ABG Base Excess ABG Oxyhemoglobin ABG Sodium ABG Chloride ABG Glucose Oxyhemoglobin Carboxyhemoglobin Sodium Potassium Chloride Carbon Dioxide BUN Creatinine Glucose POC Glucose 241 H 162 H 171 H Hemoglobin A1c Ferritin AST ALT Alkaline Phosphatase Lactate Dehydrogenase C-Reactive Protein Total Protein Albumin Arterial Blood Glucose Coronavirus (PCR) 05/21/21 05/21/21 05/22/21 16:22 20:43 05:14 WBC MCH MCHC RDW Lymph % (Auto) Lymph # (Auto) Baso # (Auto) Seg Neutrophils % Seg Neuts % (Manual) Lymphocytes % (Manual) Seg Neutrophils # Seg Neutrophils # Man Lymphocytes # (Manual) D-Dimer ABG pH POC ABG pO2 ABG pO2 ABG HCO3 ABG O2 Saturation ABG Base Excess ABG Oxyhemoglobin ABG Sodium ABG Chloride ABG Glucose Oxyhemoglobin Carboxyhemoglobin Sodium Potassium Chloride Carbon Dioxide BUN Creatinine Glucose POC Glucose 244 H 299 H 140 H Hemoglobin A1c Ferritin AST ALT Alkaline Phosphatase Lactate Dehydrogenase C-Reactive Protein Total Protein Albumin Arterial Blood Glucose Coronavirus (PCR) 05/22/21 05/22/21 05/22/21 08:45 11:54 16:15 WBC MCH MCHC RDW Lymph % (Auto) Lymph # (Auto) Baso # (Auto) Seg Neutrophils % Seg Neuts % (Manual) Lymphocytes % (Manual) Seg Neutrophils # Seg Neutrophils # Man Lymphocytes # (Manual) D-Dimer ABG pH POC ABG pO2 ABG pO2 ABG HCO3 ABG O2 Saturation ABG Base Excess ABG Oxyhemoglobin ABG Sodium ABG Chloride ABG Glucose Oxyhemoglobin Carboxyhemoglobin Sodium Potassium Chloride Carbon Dioxide BUN Creatinine Glucose POC Glucose 133 H 265 H 221 H Hemoglobin A1c Ferritin AST ALT Alkaline Phosphatase Lactate Dehydrogenase C-Reactive Protein Total Protein Albumin Arterial Blood Glucose Coronavirus (PCR) 05/22/21 05/23/21 05/23/21 21:43 08:20 09:50 WBC MCH MCHC RDW Lymph % (Auto) Lymph # (Auto) Baso # (Auto) Seg Neutrophils % Seg Neuts % (Manual) Lymphocytes % (Manual) Seg Neutrophils # Seg Neutrophils # Man Lymphocytes # (Manual) D-Dimer 910.38 H ABG pH POC ABG pO2 ABG pO2 ABG HCO3 ABG O2 Saturation ABG Base Excess ABG Oxyhemoglobin ABG Sodium ABG Chloride ABG Glucose Oxyhemoglobin Carboxyhemoglobin Sodium Potassium Chloride Carbon Dioxide BUN Creatinine Glucose POC Glucose 262 H 140 H Hemoglobin A1c Ferritin AST ALT Alkaline Phosphatase Lactate Dehydrogenase C-Reactive Protein Total Protein Albumin Arterial Blood Glucose Coronavirus (PCR) 05/23/21 05/23/21 05/23/21 09:50 09:50 10:52 WBC MCH MCHC RDW Lymph % (Auto) Lymph # (Auto) Baso # (Auto) Seg Neutrophils % Seg Neuts % (Manual) Lymphocytes % (Manual) Seg Neutrophils # Seg Neutrophils # Man Lymphocytes # (Manual) D-Dimer ABG pH POC ABG pO2 ABG pO2 ABG HCO3 ABG O2 Saturation ABG Base Excess ABG Oxyhemoglobin ABG Sodium ABG Chloride ABG Glucose Oxyhemoglobin Carboxyhemoglobin Sodium Potassium Chloride Carbon Dioxide BUN Creatinine Glucose POC Glucose 241 H Hemoglobin A1c Ferritin 244.9 H AST ALT Alkaline Phosphatase Lactate Dehydrogenase 584 H C-Reactive Protein Total Protein Albumin Arterial Blood Glucose Coronavirus (PCR) 05/23/21 05/23/21 05/24/21 17:24 21:52 07:44 WBC MCH MCHC RDW Lymph % (Auto) Lymph # (Auto) Baso # (Auto) Seg Neutrophils % Seg Neuts % (Manual) Lymphocytes % (Manual) Seg Neutrophils # Seg Neutrophils # Man Lymphocytes # (Manual) D-Dimer ABG pH POC ABG pO2 ABG pO2 ABG HCO3 ABG O2 Saturation ABG Base Excess ABG Oxyhemoglobin ABG Sodium ABG Chloride ABG Glucose Oxyhemoglobin Carboxyhemoglobin Sodium Potassium Chloride Carbon Dioxide BUN Creatinine Glucose POC Glucose 197 H 289 H 161 H Hemoglobin A1c Ferritin AST ALT Alkaline Phosphatase Lactate Dehydrogenase C-Reactive Protein Total Protein Albumin Arterial Blood Glucose Coronavirus (PCR) 05/24/21 05/24/21 05/24/21 11:17 17:51 21:26 WBC MCH MCHC RDW Lymph % (Auto) Lymph # (Auto) Baso # (Auto) Seg Neutrophils % Seg Neuts % (Manual) Lymphocytes % (Manual) Seg Neutrophils # Seg Neutrophils # Man Lymphocytes # (Manual) D-Dimer ABG pH POC ABG pO2 ABG pO2 ABG HCO3 ABG O2 Saturation ABG Base Excess ABG Oxyhemoglobin ABG Sodium ABG Chloride ABG Glucose Oxyhemoglobin Carboxyhemoglobin Sodium Potassium Chloride Carbon Dioxide BUN Creatinine Glucose POC Glucose 308 H 175 H 198 H Hemoglobin A1c Ferritin AST ALT Alkaline Phosphatase Lactate Dehydrogenase C-Reactive Protein Total Protein Albumin Arterial Blood Glucose Coronavirus (PCR) 05/25/21 05/25/21 05/25/21 08:14 11:13 17:13 WBC MCH MCHC RDW Lymph % (Auto) Lymph # (Auto) Baso # (Auto) Seg Neutrophils % Seg Neuts % (Manual) Lymphocytes % (Manual) Seg Neutrophils # Seg Neutrophils # Man Lymphocytes # (Manual) D-Dimer ABG pH POC ABG pO2 ABG pO2 ABG HCO3 ABG O2 Saturation ABG Base Excess ABG Oxyhemoglobin ABG Sodium ABG Chloride ABG Glucose Oxyhemoglobin Carboxyhemoglobin Sodium Potassium Chloride Carbon Dioxide BUN Creatinine Glucose POC Glucose 203 H 339 H 235 H Hemoglobin A1c Ferritin AST ALT Alkaline Phosphatase Lactate Dehydrogenase C-Reactive Protein Total Protein Albumin Arterial Blood Glucose Coronavirus (PCR) 05/25/21 05/26/21 05/26/21 21:03 07:33 11:19 WBC MCH MCHC RDW Lymph % (Auto) Lymph # (Auto) Baso # (Auto) Seg Neutrophils % Seg Neuts % (Manual) Lymphocytes % (Manual) Seg Neutrophils # Seg Neutrophils # Man Lymphocytes # (Manual) D-Dimer ABG pH POC ABG pO2 ABG pO2 ABG HCO3 ABG O2 Saturation ABG Base Excess ABG Oxyhemoglobin ABG Sodium ABG Chloride ABG Glucose Oxyhemoglobin Carboxyhemoglobin Sodium Potassium Chloride Carbon Dioxide BUN Creatinine Glucose POC Glucose 263 H 156 H 288 H Hemoglobin A1c Ferritin AST ALT Alkaline Phosphatase Lactate Dehydrogenase C-Reactive Protein Total Protein Albumin Arterial Blood Glucose Coronavirus (PCR) 05/26/21 05/26/21 05/27/21 16:26 20:55 07:38 WBC MCH MCHC RDW Lymph % (Auto) Lymph # (Auto) Baso # (Auto) Seg Neutrophils % Seg Neuts % (Manual) Lymphocytes % (Manual) Seg Neutrophils # Seg Neutrophils # Man Lymphocytes # (Manual) D-Dimer ABG pH POC ABG pO2 ABG pO2 ABG HCO3 ABG O2 Saturation ABG Base Excess ABG Oxyhemoglobin ABG Sodium ABG Chloride ABG Glucose Oxyhemoglobin Carboxyhemoglobin Sodium Potassium Chloride Carbon Dioxide BUN Creatinine Glucose POC Glucose 286 H 293 H 115 H Hemoglobin A1c Ferritin AST ALT Alkaline Phosphatase Lactate Dehydrogenase C-Reactive Protein Total Protein Albumin Arterial Blood Glucose Coronavirus (PCR) 05/27/21 05/27/21 05/27/21 11:46 15:58 21:02 WBC MCH MCHC RDW Lymph % (Auto) Lymph # (Auto) Baso # (Auto) Seg Neutrophils % Seg Neuts % (Manual) Lymphocytes % (Manual) Seg Neutrophils # Seg Neutrophils # Man Lymphocytes # (Manual) D-Dimer ABG pH POC ABG pO2 ABG pO2 ABG HCO3 ABG O2 Saturation ABG Base Excess ABG Oxyhemoglobin ABG Sodium ABG Chloride ABG Glucose Oxyhemoglobin Carboxyhemoglobin Sodium Potassium Chloride Carbon Dioxide BUN Creatinine Glucose POC Glucose 260 H 318 H 246 H Hemoglobin A1c Ferritin AST ALT Alkaline Phosphatase Lactate Dehydrogenase C-Reactive Protein Total Protein Albumin Arterial Blood Glucose Coronavirus (PCR) 05/28/21 05/28/21 05/28/21 07:34 11:31 16:36 WBC MCH MCHC RDW Lymph % (Auto) Lymph # (Auto) Baso # (Auto) Seg Neutrophils % Seg Neuts % (Manual) Lymphocytes % (Manual) Seg Neutrophils # Seg Neutrophils # Man Lymphocytes # (Manual) D-Dimer ABG pH POC ABG pO2 ABG pO2 ABG HCO3 ABG O2 Saturation ABG Base Excess ABG Oxyhemoglobin ABG Sodium ABG Chloride ABG Glucose Oxyhemoglobin Carboxyhemoglobin Sodium Potassium Chloride Carbon Dioxide BUN Creatinine Glucose POC Glucose 185 H 297 H 183 H Hemoglobin A1c Ferritin AST ALT Alkaline Phosphatase Lactate Dehydrogenase C-Reactive Protein Total Protein Albumin Arterial Blood Glucose Coronavirus (PCR) 05/28/21 05/29/21 05/29/21 21:19 07:34 11:19 WBC MCH MCHC RDW Lymph % (Auto) Lymph # (Auto) Baso # (Auto) Seg Neutrophils % Seg Neuts % (Manual) Lymphocytes % (Manual) Seg Neutrophils # Seg Neutrophils # Man Lymphocytes # (Manual) D-Dimer ABG pH POC ABG pO2 ABG pO2 ABG HCO3 ABG O2 Saturation ABG Base Excess ABG Oxyhemoglobin ABG Sodium ABG Chloride ABG Glucose Oxyhemoglobin Carboxyhemoglobin Sodium Potassium Chloride Carbon Dioxide BUN Creatinine Glucose POC Glucose 274 H 139 H 293 H Hemoglobin A1c Ferritin AST ALT Alkaline Phosphatase Lactate Dehydrogenase C-Reactive Protein Total Protein Albumin Arterial Blood Glucose Coronavirus (PCR) 05/29/21 05/29/21 05/30/21 16:36 22:44 05:55 WBC MCH MCHC RDW 21.3 H Lymph % (Auto) 8.0 L Lymph # (Auto) 0.6 L Baso # (Auto) Seg Neutrophils % 88.6 H Seg Neuts % (Manual) Lymphocytes % (Manual) Seg Neutrophils # Seg Neutrophils # Man Lymphocytes # (Manual) D-Dimer ABG pH POC ABG pO2 ABG pO2 ABG HCO3 ABG O2 Saturation ABG Base Excess ABG Oxyhemoglobin ABG Sodium ABG Chloride ABG Glucose Oxyhemoglobin Carboxyhemoglobin Sodium Potassium Chloride Carbon Dioxide BUN Creatinine Glucose POC Glucose 299 H 160 H Hemoglobin A1c Ferritin AST ALT Alkaline Phosphatase Lactate Dehydrogenase C-Reactive Protein Total Protein Albumin Arterial Blood Glucose Coronavirus (PCR) 05/30/21 05/30/21 05/30/21 05:55 08:04 11:13 WBC MCH MCHC RDW Lymph % (Auto) Lymph # (Auto) Baso # (Auto) Seg Neutrophils % Seg Neuts % (Manual) Lymphocytes % (Manual) Seg Neutrophils # Seg Neutrophils # Man Lymphocytes # (Manual) D-Dimer ABG pH POC ABG pO2 ABG pO2 ABG HCO3 ABG O2 Saturation ABG Base Excess ABG Oxyhemoglobin ABG Sodium ABG Chloride ABG Glucose Oxyhemoglobin Carboxyhemoglobin Sodium Potassium Chloride Carbon Dioxide BUN 19 H Creatinine 0.2 L Glucose 209 H POC Glucose 157 H 275 H Hemoglobin A1c Ferritin AST ALT Alkaline Phosphatase Lactate Dehydrogenase C-Reactive Protein Total Protein Albumin Arterial Blood Glucose Coronavirus (PCR) 05/30/21 05/30/21 05/31/21 17:08 22:12 07:36 WBC MCH MCHC RDW Lymph % (Auto) Lymph # (Auto) Baso # (Auto) Seg Neutrophils % Seg Neuts % (Manual) Lymphocytes % (Manual) Seg Neutrophils # Seg Neutrophils # Man Lymphocytes # (Manual) D-Dimer ABG pH POC ABG pO2 ABG pO2 ABG HCO3 ABG O2 Saturation ABG Base Excess ABG Oxyhemoglobin ABG Sodium ABG Chloride ABG Glucose Oxyhemoglobin Carboxyhemoglobin Sodium Potassium Chloride Carbon Dioxide BUN Creatinine Glucose POC Glucose 154 H 275 H 138 H Hemoglobin A1c Ferritin AST ALT Alkaline Phosphatase Lactate Dehydrogenase C-Reactive Protein Total Protein Albumin Arterial Blood Glucose Coronavirus (PCR) 05/31/21 05/31/21 05/31/21 11:17 16:55 21:25 WBC MCH MCHC RDW Lymph % (Auto) Lymph # (Auto) Baso # (Auto) Seg Neutrophils % Seg Neuts % (Manual) Lymphocytes % (Manual) Seg Neutrophils # Seg Neutrophils # Man Lymphocytes # (Manual) D-Dimer ABG pH POC ABG pO2 ABG pO2 ABG HCO3 ABG O2 Saturation ABG Base Excess ABG Oxyhemoglobin ABG Sodium ABG Chloride ABG Glucose Oxyhemoglobin Carboxyhemoglobin Sodium Potassium Chloride Carbon Dioxide BUN Creatinine Glucose POC Glucose 258 H 215 H 318 H Hemoglobin A1c Ferritin AST ALT Alkaline Phosphatase Lactate Dehydrogenase C-Reactive Protein Total Protein Albumin Arterial Blood Glucose Coronavirus (PCR) 06/01/21 06/01/21 06/01/21 07:23 11:38 16:52 WBC MCH MCHC RDW Lymph % (Auto) Lymph # (Auto) Baso # (Auto) Seg Neutrophils % Seg Neuts % (Manual) Lymphocytes % (Manual) Seg Neutrophils # Seg Neutrophils # Man Lymphocytes # (Manual) D-Dimer ABG pH POC ABG pO2 ABG pO2 ABG HCO3 ABG O2 Saturation ABG Base Excess ABG Oxyhemoglobin ABG Sodium ABG Chloride ABG Glucose Oxyhemoglobin Carboxyhemoglobin Sodium Potassium Chloride Carbon Dioxide BUN Creatinine Glucose POC Glucose 157 H 259 H 150 H Hemoglobin A1c Ferritin AST ALT Alkaline Phosphatase Lactate Dehydrogenase C-Reactive Protein Total Protein Albumin Arterial Blood Glucose Coronavirus (PCR) 06/01/21 06/02/21 06/02/21 23:16 05:34 05:34 WBC MCH MCHC RDW 21.3 H Lymph % (Auto) 9.6 L Lymph # (Auto) 0.6 L Baso # (Auto) Seg Neutrophils % 86.2 H Seg Neuts % (Manual) Lymphocytes % (Manual) Seg Neutrophils # Seg Neutrophils # Man Lymphocytes # (Manual) D-Dimer ABG pH POC ABG pO2 ABG pO2 ABG HCO3 ABG O2 Saturation ABG Base Excess ABG Oxyhemoglobin ABG Sodium ABG Chloride ABG Glucose Oxyhemoglobin Carboxyhemoglobin Sodium 136 L Potassium Chloride Carbon Dioxide BUN Creatinine 0.2 L Glucose 186 H POC Glucose 247 H Hemoglobin A1c Ferritin AST ALT 69 H Alkaline Phosphatase Lactate Dehydrogenase C-Reactive Protein Total Protein 6.1 L Albumin 3.2 L Arterial Blood Glucose Coronavirus (PCR) 06/02/21 06/02/21 06/02/21 11:25 18:23 21:32 WBC MCH MCHC RDW Lymph % (Auto) Lymph # (Auto) Baso # (Auto) Seg Neutrophils % Seg Neuts % (Manual) Lymphocytes % (Manual) Seg Neutrophils # Seg Neutrophils # Man Lymphocytes # (Manual) D-Dimer ABG pH POC ABG pO2 ABG pO2 ABG HCO3 ABG O2 Saturation ABG Base Excess ABG Oxyhemoglobin ABG Sodium ABG Chloride ABG Glucose Oxyhemoglobin Carboxyhemoglobin Sodium Potassium Chloride Carbon Dioxide BUN Creatinine Glucose POC Glucose 157 H 299 H 246 H Hemoglobin A1c Ferritin AST ALT Alkaline Phosphatase Lactate Dehydrogenase C-Reactive Protein Total Protein Albumin Arterial Blood Glucose Coronavirus (PCR) 06/03/21 06/03/21 06/03/21 08:12 12:21 17:31 WBC MCH MCHC RDW Lymph % (Auto) Lymph # (Auto) Baso # (Auto) Seg Neutrophils % Seg Neuts % (Manual) Lymphocytes % (Manual) Seg Neutrophils # Seg Neutrophils # Man Lymphocytes # (Manual) D-Dimer ABG pH POC ABG pO2 ABG pO2 ABG HCO3 ABG O2 Saturation ABG Base Excess ABG Oxyhemoglobin ABG Sodium ABG Chloride ABG Glucose Oxyhemoglobin Carboxyhemoglobin Sodium Potassium Chloride Carbon Dioxide BUN Creatinine Glucose POC Glucose 153 H 302 H 252 H Hemoglobin A1c Ferritin AST ALT Alkaline Phosphatase Lactate Dehydrogenase C-Reactive Protein Total Protein Albumin Arterial Blood Glucose Coronavirus (PCR) 06/03/21 06/04/21 06/04/21 22:08 11:12 16:01 WBC MCH MCHC RDW Lymph % (Auto) Lymph # (Auto) Baso # (Auto) Seg Neutrophils % Seg Neuts % (Manual) Lymphocytes % (Manual) Seg Neutrophils # Seg Neutrophils # Man Lymphocytes # (Manual) D-Dimer ABG pH POC ABG pO2 ABG pO2 ABG HCO3 ABG O2 Saturation ABG Base Excess ABG Oxyhemoglobin ABG Sodium ABG Chloride ABG Glucose Oxyhemoglobin Carboxyhemoglobin Sodium Potassium Chloride Carbon Dioxide BUN Creatinine Glucose POC Glucose 224 H 259 H 238 H Hemoglobin A1c Ferritin AST ALT Alkaline Phosphatase Lactate Dehydrogenase C-Reactive Protein Total Protein Albumin Arterial Blood Glucose Coronavirus (PCR) 06/04/21 06/05/21 06/05/21 21:26 05:26 05:26 WBC MCH MCHC RDW Lymph % (Auto) Lymph # (Auto) Baso # (Auto) Seg Neutrophils % Seg Neuts % (Manual) Lymphocytes % (Manual) Seg Neutrophils # Seg Neutrophils # Man Lymphocytes # (Manual) D-Dimer 488.49 H ABG pH POC ABG pO2 ABG pO2 ABG HCO3 ABG O2 Saturation ABG Base Excess ABG Oxyhemoglobin ABG Sodium ABG Chloride ABG Glucose Oxyhemoglobin Carboxyhemoglobin Sodium Potassium Chloride Carbon Dioxide BUN Creatinine 0.2 L Glucose 198 H POC Glucose 257 H Hemoglobin A1c Ferritin AST ALT Alkaline Phosphatase Lactate Dehydrogenase 475 H C-Reactive Protein Total Protein Albumin Arterial Blood Glucose Coronavirus (PCR) 06/05/21 06/05/21 06/05/21 07:20 08:30 11:00 WBC MCH MCHC RDW Lymph % (Auto) Lymph # (Auto) Baso # (Auto) Seg Neutrophils % Seg Neuts % (Manual) Lymphocytes % (Manual) Seg Neutrophils # Seg Neutrophils # Man Lymphocytes # (Manual) D-Dimer ABG pH POC ABG pO2 ABG pO2 ABG HCO3 ABG O2 Saturation ABG Base Excess ABG Oxyhemoglobin ABG Sodium ABG Chloride ABG Glucose Oxyhemoglobin Carboxyhemoglobin Sodium Potassium Chloride Carbon Dioxide BUN Creatinine Glucose POC Glucose 146 H 246 H Hemoglobin A1c Ferritin AST ALT Alkaline Phosphatase Lactate Dehydrogenase C-Reactive Protein Total Protein Albumin Arterial Blood Glucose Coronavirus (PCR) Positive A 06/05/21 06/05/21 06/06/21 16:50 22:30 07:57 WBC MCH MCHC RDW Lymph % (Auto) Lymph # (Auto) Baso # (Auto) Seg Neutrophils % Seg Neuts % (Manual) Lymphocytes % (Manual) Seg Neutrophils # Seg Neutrophils # Man Lymphocytes # (Manual) D-Dimer ABG pH POC ABG pO2 ABG pO2 ABG HCO3 ABG O2 Saturation ABG Base Excess ABG Oxyhemoglobin ABG Sodium ABG Chloride ABG Glucose Oxyhemoglobin Carboxyhemoglobin Sodium Potassium Chloride Carbon Dioxide BUN Creatinine Glucose POC Glucose 240 H 174 H 120 H Hemoglobin A1c Ferritin AST ALT Alkaline Phosphatase Lactate Dehydrogenase C-Reactive Protein Total Protein Albumin Arterial Blood Glucose Coronavirus (PCR) 06/06/21 06/06/21 06/06/21 11:14 16:50 21:11 WBC MCH MCHC RDW Lymph % (Auto) Lymph # (Auto) Baso # (Auto) Seg Neutrophils % Seg Neuts % (Manual) Lymphocytes % (Manual) Seg Neutrophils # Seg Neutrophils # Man Lymphocytes # (Manual) D-Dimer ABG pH POC ABG pO2 ABG pO2 ABG HCO3 ABG O2 Saturation ABG Base Excess ABG Oxyhemoglobin ABG Sodium ABG Chloride ABG Glucose Oxyhemoglobin Carboxyhemoglobin Sodium Potassium Chloride Carbon Dioxide BUN Creatinine Glucose POC Glucose 267 H 218 H 124 H Hemoglobin A1c Ferritin AST ALT Alkaline Phosphatase Lactate Dehydrogenase C-Reactive Protein Total Protein Albumin Arterial Blood Glucose Coronavirus (PCR) 06/07/21 06/07/21 06/08/21 11:58 15:59 07:59 WBC MCH MCHC RDW Lymph % (Auto) Lymph # (Auto) Baso # (Auto) Seg Neutrophils % Seg Neuts % (Manual) Lymphocytes % (Manual) Seg Neutrophils # Seg Neutrophils # Man Lymphocytes # (Manual) D-Dimer ABG pH POC ABG pO2 ABG pO2 ABG HCO3 ABG O2 Saturation ABG Base Excess ABG Oxyhemoglobin ABG Sodium ABG Chloride ABG Glucose Oxyhemoglobin Carboxyhemoglobin Sodium Potassium Chloride Carbon Dioxide BUN Creatinine Glucose POC Glucose 219 H 208 H 192 H Hemoglobin A1c Ferritin AST ALT Alkaline Phosphatase Lactate Dehydrogenase C-Reactive Protein Total Protein Albumin Arterial Blood Glucose Coronavirus (PCR) 06/08/21 06/08/21 06/09/21 11:26 23:28 07:33 WBC MCH MCHC RDW Lymph % (Auto) Lymph # (Auto) Baso # (Auto) Seg Neutrophils % Seg Neuts % (Manual) Lymphocytes % (Manual) Seg Neutrophils # Seg Neutrophils # Man Lymphocytes # (Manual) D-Dimer ABG pH POC ABG pO2 ABG pO2 ABG HCO3 ABG O2 Saturation ABG Base Excess ABG Oxyhemoglobin ABG Sodium ABG Chloride ABG Glucose Oxyhemoglobin Carboxyhemoglobin Sodium Potassium Chloride Carbon Dioxide BUN Creatinine Glucose POC Glucose 307 H 138 H 145 H Hemoglobin A1c Ferritin AST ALT Alkaline Phosphatase Lactate Dehydrogenase C-Reactive Protein Total Protein Albumin Arterial Blood Glucose Coronavirus (PCR) 06/09/21 06/09/21 06/09/21 11:01 15:47 21:43 WBC MCH MCHC RDW Lymph % (Auto) Lymph # (Auto) Baso # (Auto) Seg Neutrophils % Seg Neuts % (Manual) Lymphocytes % (Manual) Seg Neutrophils # Seg Neutrophils # Man Lymphocytes # (Manual) D-Dimer ABG pH POC ABG pO2 ABG pO2 ABG HCO3 ABG O2 Saturation ABG Base Excess ABG Oxyhemoglobin ABG Sodium ABG Chloride ABG Glucose Oxyhemoglobin Carboxyhemoglobin Sodium Potassium Chloride Carbon Dioxide BUN Creatinine Glucose POC Glucose 266 H 305 H 223 H Hemoglobin A1c Ferritin AST ALT Alkaline Phosphatase Lactate Dehydrogenase C-Reactive Protein Total Protein Albumin Arterial Blood Glucose Coronavirus (PCR) 06/10/21 06/10/21 06/10/21 08:27 12:10 17:45 WBC MCH MCHC RDW Lymph % (Auto) Lymph # (Auto) Baso # (Auto) Seg Neutrophils % Seg Neuts % (Manual) Lymphocytes % (Manual) Seg Neutrophils # Seg Neutrophils # Man Lymphocytes # (Manual) D-Dimer ABG pH POC ABG pO2 ABG pO2 ABG HCO3 ABG O2 Saturation ABG Base Excess ABG Oxyhemoglobin ABG Sodium ABG Chloride ABG Glucose Oxyhemoglobin Carboxyhemoglobin Sodium Potassium Chloride Carbon Dioxide BUN Creatinine Glucose POC Glucose 174 H 306 H 210 H Hemoglobin A1c Ferritin AST ALT Alkaline Phosphatase Lactate Dehydrogenase C-Reactive Protein Total Protein Albumin Arterial Blood Glucose Coronavirus (PCR) 06/10/21 06/11/21 06/11/21 21:45 09:38 09:38 WBC MCH MCHC RDW 20.9 H Lymph % (Auto) Lymph # (Auto) Baso # (Auto) Seg Neutrophils % Seg Neuts % (Manual) Lymphocytes % (Manual) Seg Neutrophils # Seg Neutrophils # Man Lymphocytes # (Manual) D-Dimer ABG pH POC ABG pO2 ABG pO2 ABG HCO3 ABG O2 Saturation ABG Base Excess ABG Oxyhemoglobin ABG Sodium ABG Chloride ABG Glucose Oxyhemoglobin Carboxyhemoglobin Sodium 135 L Potassium Chloride 90.8 L Carbon Dioxide 36 H BUN 29 H Creatinine 0.2 L Glucose 258 H POC Glucose 262 H Hemoglobin A1c Ferritin AST ALT Alkaline Phosphatase Lactate Dehydrogenase C-Reactive Protein Total Protein Albumin Arterial Blood Glucose Coronavirus (PCR) 06/11/21 06/11/21 06/11/21 11:20 15:49 22:57 WBC MCH MCHC RDW Lymph % (Auto) Lymph # (Auto) Baso # (Auto) Seg Neutrophils % Seg Neuts % (Manual) Lymphocytes % (Manual) Seg Neutrophils # Seg Neutrophils # Man Lymphocytes # (Manual) D-Dimer ABG pH POC ABG pO2 ABG pO2 ABG HCO3 ABG O2 Saturation ABG Base Excess ABG Oxyhemoglobin ABG Sodium ABG Chloride ABG Glucose Oxyhemoglobin Carboxyhemoglobin Sodium Potassium Chloride Carbon Dioxide BUN Creatinine Glucose POC Glucose 269 H 206 H 211 H Hemoglobin A1c Ferritin AST ALT Alkaline Phosphatase Lactate Dehydrogenase C-Reactive Protein Total Protein Albumin Arterial Blood Glucose Coronavirus (PCR) 06/12/21 06/12/21 06/12/21 08:07 11:24 18:08 WBC MCH MCHC RDW Lymph % (Auto) Lymph # (Auto) Baso # (Auto) Seg Neutrophils % Seg Neuts % (Manual) Lymphocytes % (Manual) Seg Neutrophils # Seg Neutrophils # Man Lymphocytes # (Manual) D-Dimer ABG pH POC ABG pO2 ABG pO2 ABG HCO3 ABG O2 Saturation ABG Base Excess ABG Oxyhemoglobin ABG Sodium ABG Chloride ABG Glucose Oxyhemoglobin Carboxyhemoglobin Sodium Potassium Chloride Carbon Dioxide BUN Creatinine Glucose POC Glucose 149 H 270 H 166 H Hemoglobin A1c Ferritin AST ALT Alkaline Phosphatase Lactate Dehydrogenase C-Reactive Protein Total Protein Albumin Arterial Blood Glucose Coronavirus (PCR) 06/12/21 06/13/21 06/13/21 20:22 07:50 11:18 WBC MCH MCHC RDW Lymph % (Auto) Lymph # (Auto) Baso # (Auto) Seg Neutrophils % Seg Neuts % (Manual) Lymphocytes % (Manual) Seg Neutrophils # Seg Neutrophils # Man Lymphocytes # (Manual) D-Dimer ABG pH POC ABG pO2 ABG pO2 ABG HCO3 ABG O2 Saturation ABG Base Excess ABG Oxyhemoglobin ABG Sodium ABG Chloride ABG Glucose Oxyhemoglobin Carboxyhemoglobin Sodium Potassium Chloride Carbon Dioxide BUN Creatinine Glucose POC Glucose 155 H 163 H 293 H Hemoglobin A1c Ferritin AST ALT Alkaline Phosphatase Lactate Dehydrogenase C-Reactive Protein Total Protein Albumin Arterial Blood Glucose Coronavirus (PCR) 06/13/21 06/13/21 06/14/21 16:41 21:00 07:41 WBC MCH MCHC RDW Lymph % (Auto) Lymph # (Auto) Baso # (Auto) Seg Neutrophils % Seg Neuts % (Manual) Lymphocytes % (Manual) Seg Neutrophils # Seg Neutrophils # Man Lymphocytes # (Manual) D-Dimer ABG pH POC ABG pO2 ABG pO2 ABG HCO3 ABG O2 Saturation ABG Base Excess ABG Oxyhemoglobin ABG Sodium ABG Chloride ABG Glucose Oxyhemoglobin Carboxyhemoglobin Sodium Potassium Chloride Carbon Dioxide BUN Creatinine Glucose POC Glucose 232 H 183 H 52 L Hemoglobin A1c Ferritin AST ALT Alkaline Phosphatase Lactate Dehydrogenase C-Reactive Protein Total Protein Albumin Arterial Blood Glucose Coronavirus (PCR) 06/14/21 06/14/21 06/14/21 11:44 17:44 21:44 WBC MCH MCHC RDW Lymph % (Auto) Lymph # (Auto) Baso # (Auto) Seg Neutrophils % Seg Neuts % (Manual) Lymphocytes % (Manual) Seg Neutrophils # Seg Neutrophils # Man Lymphocytes # (Manual) D-Dimer ABG pH POC ABG pO2 ABG pO2 ABG HCO3 ABG O2 Saturation ABG Base Excess ABG Oxyhemoglobin ABG Sodium ABG Chloride ABG Glucose Oxyhemoglobin Carboxyhemoglobin Sodium Potassium Chloride Carbon Dioxide BUN Creatinine Glucose POC Glucose 205 H 293 H 288 H Hemoglobin A1c Ferritin AST ALT Alkaline Phosphatase Lactate Dehydrogenase C-Reactive Protein Total Protein Albumin Arterial Blood Glucose Coronavirus (PCR) 06/15/21 06/15/21 06/15/21 08:00 08:00 11:40 WBC MCH 33 H MCHC 35 H RDW 20.3 H Lymph % (Auto) Lymph # (Auto) Baso # (Auto) Seg Neutrophils % Seg Neuts % (Manual) Lymphocytes % (Manual) Seg Neutrophils # Seg Neutrophils # Man Lymphocytes # (Manual) D-Dimer ABG pH POC ABG pO2 ABG pO2 ABG HCO3 ABG O2 Saturation ABG Base Excess ABG Oxyhemoglobin ABG Sodium ABG Chloride ABG Glucose Oxyhemoglobin Carboxyhemoglobin Sodium Potassium 3.2 L Chloride 95.3 L Carbon Dioxide 32 H BUN 23 H Creatinine 0.2 L Glucose 103 H POC Glucose 204 H Hemoglobin A1c Ferritin AST ALT Alkaline Phosphatase Lactate Dehydrogenase C-Reactive Protein Total Protein Albumin Arterial Blood Glucose Coronavirus (PCR) 06/15/21 06/15/21 06/16/21 16:17 22:00 11:43 WBC MCH MCHC RDW Lymph % (Auto) Lymph # (Auto) Baso # (Auto) Seg Neutrophils % Seg Neuts % (Manual) Lymphocytes % (Manual) Seg Neutrophils # Seg Neutrophils # Man Lymphocytes # (Manual) D-Dimer ABG pH POC ABG pO2 ABG pO2 ABG HCO3 ABG O2 Saturation ABG Base Excess ABG Oxyhemoglobin ABG Sodium ABG Chloride ABG Glucose Oxyhemoglobin Carboxyhemoglobin Sodium Potassium Chloride Carbon Dioxide BUN Creatinine Glucose POC Glucose 295 H 233 H 201 H Hemoglobin A1c Ferritin AST ALT Alkaline Phosphatase Lactate Dehydrogenase C-Reactive Protein Total Protein Albumin Arterial Blood Glucose Coronavirus (PCR) 06/16/21 06/16/21 06/17/21 17:21 21:27 07:12 WBC MCH MCHC RDW Lymph % (Auto) Lymph # (Auto) Baso # (Auto) Seg Neutrophils % Seg Neuts % (Manual) Lymphocytes % (Manual) Seg Neutrophils # Seg Neutrophils # Man Lymphocytes # (Manual) D-Dimer ABG pH POC ABG pO2 ABG pO2 ABG HCO3 ABG O2 Saturation ABG Base Excess ABG Oxyhemoglobin ABG Sodium ABG Chloride ABG Glucose Oxyhemoglobin Carboxyhemoglobin Sodium Potassium Chloride Carbon Dioxide BUN Creatinine Glucose POC Glucose 299 H 290 H 67 L Hemoglobin A1c Ferritin AST ALT Alkaline Phosphatase Lactate Dehydrogenase C-Reactive Protein Total Protein Albumin Arterial Blood Glucose Coronavirus (PCR) 06/17/21 06/17/21 06/17/21 11:53 17:02 22:25 WBC MCH MCHC RDW Lymph % (Auto) Lymph # (Auto) Baso # (Auto) Seg Neutrophils % Seg Neuts % (Manual) Lymphocytes % (Manual) Seg Neutrophils # Seg Neutrophils # Man Lymphocytes # (Manual) D-Dimer ABG pH POC ABG pO2 ABG pO2 ABG HCO3 ABG O2 Saturation ABG Base Excess ABG Oxyhemoglobin ABG Sodium ABG Chloride ABG Glucose Oxyhemoglobin Carboxyhemoglobin Sodium Potassium Chloride Carbon Dioxide BUN Creatinine Glucose POC Glucose 199 H 362 H 235 H Hemoglobin A1c Ferritin AST ALT Alkaline Phosphatase Lactate Dehydrogenase C-Reactive Protein Total Protein Albumin Arterial Blood Glucose Coronavirus (PCR) 06/18/21 06/18/21 06/18/21 08:00 11:48 16:40 WBC MCH MCHC RDW Lymph % (Auto) Lymph # (Auto) Baso # (Auto) Seg Neutrophils % Seg Neuts % (Manual) Lymphocytes % (Manual) Seg Neutrophils # Seg Neutrophils # Man Lymphocytes # (Manual) D-Dimer ABG pH POC ABG pO2 ABG pO2 ABG HCO3 ABG O2 Saturation ABG Base Excess ABG Oxyhemoglobin ABG Sodium ABG Chloride ABG Glucose Oxyhemoglobin Carboxyhemoglobin Sodium Potassium Chloride Carbon Dioxide BUN Creatinine Glucose POC Glucose 62 L 211 H 305 H Hemoglobin A1c Ferritin AST ALT Alkaline Phosphatase Lactate Dehydrogenase C-Reactive Protein Total Protein Albumin Arterial Blood Glucose Coronavirus (PCR) 06/18/21 06/19/21 06/19/21 21:26 07:27 11:32 WBC MCH MCHC RDW Lymph % (Auto) Lymph # (Auto) Baso # (Auto) Seg Neutrophils % Seg Neuts % (Manual) Lymphocytes % (Manual) Seg Neutrophils # Seg Neutrophils # Man Lymphocytes # (Manual) D-Dimer ABG pH POC ABG pO2 ABG pO2 ABG HCO3 ABG O2 Saturation ABG Base Excess ABG Oxyhemoglobin ABG Sodium ABG Chloride ABG Glucose Oxyhemoglobin Carboxyhemoglobin Sodium Potassium Chloride Carbon Dioxide BUN Creatinine Glucose POC Glucose 149 H 60 L 208 H Hemoglobin A1c Ferritin AST ALT Alkaline Phosphatase Lactate Dehydrogenase C-Reactive Protein Total Protein Albumin Arterial Blood Glucose Coronavirus (PCR) 06/19/21 06/19/21 06/20/21 16:06 22:28 07:48 WBC MCH MCHC RDW Lymph % (Auto) Lymph # (Auto) Baso # (Auto) Seg Neutrophils % Seg Neuts % (Manual) Lymphocytes % (Manual) Seg Neutrophils # Seg Neutrophils # Man Lymphocytes # (Manual) D-Dimer ABG pH POC ABG pO2 ABG pO2 ABG HCO3 ABG O2 Saturation ABG Base Excess ABG Oxyhemoglobin ABG Sodium ABG Chloride ABG Glucose Oxyhemoglobin Carboxyhemoglobin Sodium Potassium Chloride Carbon Dioxide BUN Creatinine Glucose POC Glucose 266 H 166 H 58 L Hemoglobin A1c Ferritin AST ALT Alkaline Phosphatase Lactate Dehydrogenase C-Reactive Protein Total Protein Albumin Arterial Blood Glucose Coronavirus (PCR) 06/20/21 06/20/21 06/20/21 09:09 11:04 16:01 WBC MCH MCHC RDW Lymph % (Auto) Lymph # (Auto) Baso # (Auto) Seg Neutrophils % Seg Neuts % (Manual) Lymphocytes % (Manual) Seg Neutrophils # Seg Neutrophils # Man Lymphocytes # (Manual) D-Dimer ABG pH POC ABG pO2 ABG pO2 ABG HCO3 ABG O2 Saturation ABG Base Excess ABG Oxyhemoglobin ABG Sodium ABG Chloride ABG Glucose Oxyhemoglobin Carboxyhemoglobin Sodium Potassium Chloride Carbon Dioxide BUN Creatinine Glucose POC Glucose 146 H 225 H 330 H Hemoglobin A1c Ferritin AST ALT Alkaline Phosphatase Lactate Dehydrogenase C-Reactive Protein Total Protein Albumin Arterial Blood Glucose Coronavirus (PCR) 06/20/21 06/21/21 06/21/21 20:46 06:45 06:45 WBC MCH MCHC RDW 20.0 H Lymph % (Auto) Lymph # (Auto) Baso # (Auto) Seg Neutrophils % Seg Neuts % (Manual) Lymphocytes % (Manual) Seg Neutrophils # Seg Neutrophils # Man Lymphocytes # (Manual) D-Dimer ABG pH POC ABG pO2 ABG pO2 ABG HCO3 ABG O2 Saturation ABG Base Excess ABG Oxyhemoglobin ABG Sodium ABG Chloride ABG Glucose Oxyhemoglobin Carboxyhemoglobin Sodium Potassium 2.9 L* Chloride 95.0 L Carbon Dioxide 31 H BUN 23 H Creatinine 0.2 L Glucose 45 L POC Glucose 215 H Hemoglobin A1c Ferritin AST ALT Alkaline Phosphatase Lactate Dehydrogenase C-Reactive Protein Total Protein Albumin Arterial Blood Glucose Coronavirus (PCR) 06/21/21 06/21/21 06/21/21 07:38 09:06 12:40 WBC MCH MCHC RDW Lymph % (Auto) Lymph # (Auto) Baso # (Auto) Seg Neutrophils % Seg Neuts % (Manual) Lymphocytes % (Manual) Seg Neutrophils # Seg Neutrophils # Man Lymphocytes # (Manual) D-Dimer ABG pH POC ABG pO2 ABG pO2 ABG HCO3 ABG O2 Saturation ABG Base Excess ABG Oxyhemoglobin ABG Sodium ABG Chloride ABG Glucose Oxyhemoglobin Carboxyhemoglobin Sodium Potassium Chloride Carbon Dioxide BUN Creatinine Glucose POC Glucose 50 L 196 H 205 H Hemoglobin A1c Ferritin AST ALT Alkaline Phosphatase Lactate Dehydrogenase C-Reactive Protein Total Protein Albumin Arterial Blood Glucose Coronavirus (PCR) 06/21/21 06/22/21 06/22/21 21:36 06:25 07:15 WBC MCH MCHC RDW Lymph % (Auto) Lymph # (Auto) Baso # (Auto) Seg Neutrophils % Seg Neuts % (Manual) Lymphocytes % (Manual) Seg Neutrophils # Seg Neutrophils # Man Lymphocytes # (Manual) D-Dimer ABG pH POC ABG pO2 ABG pO2 ABG HCO3 ABG O2 Saturation ABG Base Excess ABG Oxyhemoglobin ABG Sodium ABG Chloride ABG Glucose Oxyhemoglobin Carboxyhemoglobin Sodium Potassium Chloride Carbon Dioxide BUN 20 H Creatinine 0.2 L Glucose POC Glucose 245 H 66 L Hemoglobin A1c Ferritin AST ALT Alkaline Phosphatase Lactate Dehydrogenase C-Reactive Protein Total Protein Albumin Arterial Blood Glucose Coronavirus (PCR) 06/22/21 06/22/21 06/22/21 11:03 16:07 22:03 WBC MCH MCHC RDW Lymph % (Auto) Lymph # (Auto) Baso # (Auto) Seg Neutrophils % Seg Neuts % (Manual) Lymphocytes % (Manual) Seg Neutrophils # Seg Neutrophils # Man Lymphocytes # (Manual) D-Dimer ABG pH POC ABG pO2 ABG pO2 ABG HCO3 ABG O2 Saturation ABG Base Excess ABG Oxyhemoglobin ABG Sodium ABG Chloride ABG Glucose Oxyhemoglobin Carboxyhemoglobin Sodium Potassium Chloride Carbon Dioxide BUN Creatinine Glucose POC Glucose 184 H 326 H 138 H Hemoglobin A1c Ferritin AST ALT Alkaline Phosphatase Lactate Dehydrogenase C-Reactive Protein Total Protein Albumin Arterial Blood Glucose Coronavirus (PCR) 06/23/21 06/23/21 06/23/21 07:19 10:34 16:35 WBC MCH MCHC RDW Lymph % (Auto) Lymph # (Auto) Baso # (Auto) Seg Neutrophils % Seg Neuts % (Manual) Lymphocytes % (Manual) Seg Neutrophils # Seg Neutrophils # Man Lymphocytes # (Manual) D-Dimer ABG pH POC ABG pO2 ABG pO2 ABG HCO3 ABG O2 Saturation ABG Base Excess ABG Oxyhemoglobin ABG Sodium ABG Chloride ABG Glucose Oxyhemoglobin Carboxyhemoglobin Sodium Potassium Chloride Carbon Dioxide BUN Creatinine Glucose POC Glucose 69 L 218 H 326 H Hemoglobin A1c Ferritin AST ALT Alkaline Phosphatase Lactate Dehydrogenase C-Reactive Protein Total Protein Albumin Arterial Blood Glucose Coronavirus (PCR) 06/23/21 06/24/21 06/24/21 22:44 11:41 16:54 WBC MCH MCHC RDW Lymph % (Auto) Lymph # (Auto) Baso # (Auto) Seg Neutrophils % Seg Neuts % (Manual) Lymphocytes % (Manual) Seg Neutrophils # Seg Neutrophils # Man Lymphocytes # (Manual) D-Dimer ABG pH POC ABG pO2 ABG pO2 ABG HCO3 ABG O2 Saturation ABG Base Excess ABG Oxyhemoglobin ABG Sodium ABG Chloride ABG Glucose Oxyhemoglobin Carboxyhemoglobin Sodium Potassium Chloride Carbon Dioxide BUN Creatinine Glucose POC Glucose 252 H 217 H 357 H Hemoglobin A1c Ferritin AST ALT Alkaline Phosphatase Lactate Dehydrogenase C-Reactive Protein Total Protein Albumin Arterial Blood Glucose Coronavirus (PCR) 06/24/21 06/25/21 06/25/21 20:40 11:51 16:47 WBC MCH MCHC RDW Lymph % (Auto) Lymph # (Auto) Baso # (Auto) Seg Neutrophils % Seg Neuts % (Manual) Lymphocytes % (Manual) Seg Neutrophils # Seg Neutrophils # Man Lymphocytes # (Manual) D-Dimer ABG pH POC ABG pO2 ABG pO2 ABG HCO3 ABG O2 Saturation ABG Base Excess ABG Oxyhemoglobin ABG Sodium ABG Chloride ABG Glucose Oxyhemoglobin Carboxyhemoglobin Sodium Potassium Chloride Carbon Dioxide BUN Creatinine Glucose POC Glucose 239 H 182 H 229 H Hemoglobin A1c Ferritin AST ALT Alkaline Phosphatase Lactate Dehydrogenase C-Reactive Protein Total Protein Albumin Arterial Blood Glucose Coronavirus (PCR) 06/25/21 06/26/21 06/26/21 22:27 07:20 12:19 WBC MCH MCHC RDW Lymph % (Auto) Lymph # (Auto) Baso # (Auto) Seg Neutrophils % Seg Neuts % (Manual) Lymphocytes % (Manual) Seg Neutrophils # Seg Neutrophils # Man Lymphocytes # (Manual) D-Dimer ABG pH POC ABG pO2 ABG pO2 ABG HCO3 ABG O2 Saturation ABG Base Excess ABG Oxyhemoglobin ABG Sodium ABG Chloride ABG Glucose Oxyhemoglobin Carboxyhemoglobin Sodium Potassium 3.2 L D Chloride Carbon Dioxide BUN 20 H Creatinine 0.3 L Glucose POC Glucose 209 H 273 H Hemoglobin A1c Ferritin AST ALT 77 H Alkaline Phosphatase Lactate Dehydrogenase C-Reactive Protein Total Protein Albumin 3.3 L Arterial Blood Glucose Coronavirus (PCR)
[2021-06-26] MEDS: ENOXAPARIN 40 MG/0.4 ML INJ SUB-Q SCH (22:46)
[2021-06-26] MEDS: ZOLPIDEM 5 MG TAB PO PRN (22:47)
[2021-06-26] MEDS: SENNOSIDES 8.6 MG TAB PO SCH (22:49)
[2021-06-27 08:55] LABS: Blood Urea Nitrogen 19 mg/dL (7-17); Calcium 9.4 mg/dL (8.4-10.2); Hemolysis Index 7
[2021-06-27 09:06] LABS: BUN/Creatinine Ratio 95
[2021-06-27] MEDS: INSULIN LISPRO 100 UNIT/ML SUB-Q SCH ×4 (09:15→21:31)
[2021-06-27] MEDS: INSULIN GLARGINE 100 UNITS/ML SUB-Q SCH (10:09)
[2021-06-27] MEDS: DOCUSATE SODIUM 100 MG CAP PO SCH ×2 (10:11→21:31)
[2021-06-27] MEDS: FUROSEMIDE 40 MG/4 ML INJ IV SCH (10:11)
[2021-06-27] MEDS: ZINC SULFATE 220 MG CAP PO SCH ×2 (10:11→21:31)
[2021-06-27] MEDS: ASCORBIC ACID 500 MG TAB PO SCH (10:11)
[2021-06-27] MEDS: predniSONE 20 MG TAB PO SCH (10:11)
[2021-06-27] MEDS: clonazePAM 0.5 MG TAB PO PRN (10:11)
[2021-06-27] MEDS: CHOLECALCIFEROL (VIT D3) 1000 UNIT (25 mcg) TAB PO SCH (10:15)
--- NOTE | 2021-06-27 13:42 | Progress Note ---
Assessment and Plan Assessment and plan: Admit 04/16 from ER 50 YO Female with GERD, Obesity, HLD presents to ED for evaluation. Patient reports "I cannot breathe". Patient states that she has experienced subjective fever, shortness of breath, malaise, body aches, dry cough, and shortness of breath over the past 1 week with progressively worsening symptoms over the same timeframe. EMS was notified and upon arrival the patient was found to be in distress and subsequent transported to [facility] for further care and evaluation of the aforementioned symptoms. The patient was seen and evaluated in the emergency department. All lab and imaging studies reviewed. Patient found to have a pulse oximetry of 86% with exertion on room air which is consistent with acute hypoxemic respiratory failure. Patient with chest x-ray which revealed bilateral pneumonia. Patient admitted to medical floor and initiated him on pneumonia protocol as well as coronavirus protocol. Patient knowledges fever but denies chills, chest pain, palpitation, skin rash, recent ill contacts, or known exposure to COVID-19. Prior admission on 01/21/2017 reviewed. All m edication listed at time of admission has been reconciled. Patient is unvaccinated for coronavirus infection. CXR: Bilateral Pneumonia 04/17: Patient seen and examined, still uncomfortable with Hypoxic respiratory failure and on oxygen, will continue to steroids therapy, start patient on Remdesivir, ID consulted, Pulmonary consult placed. 04/18: Patient seen and examined, she is currently being changed to High flow NC due to worsening HYPOXIA, will transfer to IMCU, Pulmonary and ID following. Will also give a dose of Lasix today. Monitor Inflammatory markers. 04/19: Patient seen and examined still on high flow due to hypoxia. Appears a bit more comfortable today than yesterday. Cough has decreased in frequency. We will continue high dose Dexameathasone to complete 10 days. continue on Remdesivir 200 mg IV q day x 1 followed by 100 mg IV q day x 4 days -Obtain q48-72h inflammatory markers - ferritin, Ddimer, CRP, LDH Will also give lasix daily for the next 3 days and monitor renal function. Family updated. Continue prone positioning as tolerated 04/20: Patient has some desaturation episodes yesterday was placed on BiPAP. Discussed with ICU team for bed availability for patient to be transferred up. Continue prone position as tolerated. 8/8: Patient remains with profound hypoxia secondary to COVID pneumonia. -Continue steroids -Continue remedesir -S/P Actmera 04/22: Patient remains on steroids and remdesivir. ABG shows persistent hypoxia. We will continue current management additional trial of Lasix for the next few days to see if any improvement. Monitor inflammatory markers as needed. Prognosis is guarded remains on high flow 04/23; patient was treated with remdesivir and Actemra. Continue steroid. Patient's prognosis is guarded. 04/24; patient is on steroid. Patient is currently on BiPAP. Prognosis is guarded. Pulmonary is following. Patient was given Lasix and Ativan. 04/25; continue steroid. Patient was on 40 L of high flow oxygen with saturation was 88%. Pulmonary is following. Prognosis is guarded. Patient was given lasix and ativan. 04/26; patient is on BiPAP and Precedex. Prognosis is guarded. 04/27; patient is on BiPAP and Precedex. Patient will finish steroid today and will start on Solu-Medrol tomorrow. Prognosis is guarded. Blood pressure is better today. Hold Lasix. 04/28 patient is on 100 Fio2 via BIPAP. moderately dyspneic, pulmonary note reviewed, lab results reviewed 04/29 no acute events- see systems review above 04/30 no acute events overnight - on airvo today- TPN started -see systems review above 05-01 no acute events overnight- tolerating airvo- see systems review above - no acute events overnight; tolerating airvo this AM- see systems review above 05/03: Patient remains on full high flow oxygen. No acute events overnight 05/04: Patient remains on BiPAP this morning at 70%. Returning to service Patient initially managed in the ICU and then transfered to the floor 06/25: Patient remains on full oxygen with high flow, encouraged to prone at night time. Spoke to Night nursing staff to ensure assisting the patient Prone. Continue steroid therapy, will discuss with Pulmonary about trying additional lasix. Plan discussed with patient and family. 06/26: Patient already on Lasix daily, Hypokalemia- Replace K. Continue to encourage Proning. Remains on high flow. 06/27: Continue supportive care unfortunately had to go up on her oxygen to 70% FiO2 prognosis remains guarded continue to encourage proning. Sepsis secondary to COVID 19 Acute hypoxemic respiratory failure Current Visit: Yes Status: Acute Plan to address problem: Supplemental oxygen, pulse oximetry, nebulizer therapy, proposition while in bed, noninvasive positive pressure ventilation as clinically indicated. Patient remains on high flow supplemental oxygen without much improvement of hypoxia. Will continue to attempt to wean O2 as tolerated. Pneumonia Current Visit: Yes Status: Acute Qualifiers: Aspiration pneumonia type: unspecified Laterality: unspecified laterality Lung location: unspecified part of lung Plan to address problem: Pneumonia protocol: Chest x-ray, CBC, CMP, IV antibiotic therapy, blood culture. Coronavirus infection Current Visit: Yes Status: Acute Plan to address problem: Supportive care, infectious disease service consulted. Continue medical management. Anxiety Right eye- viral conjunctivitis vs subconjunctival hemorrhage continue to monitor treated with ofloxacin ou x 5 days artificial tears has not provided relief Protein gisella malnutrition given inc metabolic demand with resp insufficiency Now off TPN Diabetes mellitus with Hyperglycemia; Noted hypoglycemia will wean down lantus. glargine HS SSI AC/HS Obesity - volume overload; hypona; hypoMg DVT prophylaxis Current Visit: Yes Status: Acute Plan to address problem: SCD to bilateral lower extremities while in bed, prophylactic anticoagulation History Interval history: Patient seen and examined, still with shortness of breath, this morning she was prone during my exam she had refused proning last night continue to encourage Hospitalist Physical - Physical exam Narrative exam: General appearance: Absent: mild distress, Continues on High Flow 35L and 55% - EENT Eyes: Present: PERRL ENT: hearing intact, clear oral mucosa - Neck Neck: Present: supple, normal ROM - Respiratory Respiratory effort: normal Respiratory: bilateral: Diminished - Cardiovascular Heart Sounds: Present: S1 & S2. Absent: rub, click - Extremities Extremities: pulses symmetrical, No edema Peripheral Pulses: within normal limits - Abdominal General gastrointestinal: Present: soft, non-tender, non-distended, normal bowel sounds Female genitourinary: Present: normal - Integumentary Integumentary: Present: clear, warm, dry - Musculoskeletal Musculoskeletal: gait normal, strength equal bilaterally - Psychiatric Psychiatric: appropriate mood/affect, intact judgment & insight - Neurologic Neurologic: CNII-XII intact, moves all extremities - Constitutional Vitals: Temp Pulse Resp BP Pulse Ox 98.2 F 104 H 19 116/83 96 06/27/21 10:54 06/27/21 10:54 06/27/21 10:54 06/27/21 10:54 06/27/21 10:54 General appearance: Present: mild distress, well-nourished Results - Labs CBC & Chem 7: 06/21/21 06:45 06/27/21 07:14 Labs: Laboratory Last Values WBC 9.2 K/mm3 (4.5-11.0) 06/21/21 06:45 RBC 4.26 M/mm3 (3.65-5.03) 06/21/21 06:45 Hgb 13.5 gm/dl (10.1-14.3) 06/21/21 06:45 Hct 40.1 % (30.3-42.9) 06/21/21 06:45 MCV 94 fl (79-97) 06/21/21 06:45 MCH 32 pg (28-32) 06/21/21 06:45 MCHC 34 % (30-34) 06/21/21 06:45 RDW 20.0 % (13.2-15.2) H 06/21/21 06:45 Plt Count 285 K/mm3 (140-440) 06/21/21 06:45 Lymph % (Auto) 30.3 % (13.4-35.0) 06/21/21 06:45 [place] % (Auto) 6.5 % (0.0-7.3) 06/21/21 06:45 Eos % (Auto) 0.7 % (0.0-4.3) 06/21/21 06:45 Baso % (Auto) 0.5 % (0.0-1.8) 06/21/21 06:45 Lymph # (Auto) 2.8 K/mm3 (1.2-5.4) 06/21/21 06:45 Roosevelt # (Auto) 0.6 K/mm3 (0.0-0.8) 06/21/21 06:45 Eos # (Auto) 0.1 K/mm3 (0.0-0.4) 06/21/21 06:45 Baso # (Auto) 0.0 K/mm3 (0.0-0.1) 06/21/21 06:45 Add Manual Diff Complete 05/12/21 04:05 Total Counted 100 05/12/21 04:05 Seg Neutrophils % 62.0 % (40.0-70.0) 06/21/21 06:45 Seg Neuts % (Manual) 94.0 % (40.0-70.0) H 05/12/21 04:05 Band Neutrophils % 1.0 % 05/12/21 04:05 Lymphocytes % (Manual) 4.0 % (13.4-35.0) L 05/12/21 04:05 Monocytes % (Manual) 1.0 % (0.0-7.3) 05/12/21 04:05 Nucleated RBC % Not Reportable 05/12/21 04:05 Seg Neutrophils # 5.7 K/mm3 (1.8-7.7) 06/21/21 06:45 Seg Neutrophils # Man 6.4 K/mm3 (1.8-7.7) 05/12/21 04:05 Band Neutrophils # 0.1 K/mm3 05/12/21 04:05 Lymphocytes # (Manual) 0.3 K/mm3 (1.2-5.4) L 05/12/21 04:05 Abs React Lymphs (Man) 0.0 K/mm3 05/12/21 04:05 Monocytes # (Manual) 0.1 K/mm3 (0.0-0.8) 05/12/21 04:05 Eosinophils # (Manual) 0.0 K/mm3 (0.0-0.4) 05/12/21 04:05 Basophils # (Manual) 0.0 K/mm3 (0.0-0.1) 05/12/21 04:05 Metamyelocytes # 0.0 K/mm3 05/12/21 04:05 Myelocytes # 0.0 K/mm3 05/12/21 04:05 Promyelocytes # 0.0 K/mm3 05/12/21 04:05 Blast Cells # 0.0 K/mm3 05/12/21 04:05 WBC Morphology Not Reportable 05/12/21 04:05 Hypersegmented Neuts Not Reportable 05/12/21 04:05 Hyposegmented Neuts Not Reportable 05/12/21 04:05 Hypogranular Neuts Not Reportable 05/12/21 04:05 Smudge Cells Not Reportable 05/12/21 04:05 Toxic Granulation Not Reportable 05/12/21 04:05 Toxic Vacuolation Not Reportable 05/12/21 04:05 Dohle Bodies Not Reportable 05/12/21 04:05 Pelger-Huet Anomaly Not Reportable 05/12/21 04:05 Janelle Rods Not Reportable 05/12/21 04:05 Platelet Estimate Consistent w auto 05/12/21 04:05 Clumped Platelets Not Reportable 05/12/21 04:05 Plt Clumps, EDTA Not Reportable 05/12/21 04:05 Large Platelets Not Reportable 05/12/21 04:05 Giant Platelets Not Reportable 05/12/21 04:05 Platelet Satelliting Not Reportable 05/12/21 04:05 Plt Morphology Comment Not Reportable 05/12/21 04:05 RBC Morphology Normal 05/12/21 04:05 Dimorphic RBCs Not Reportable 05/12/21 04:05 Polychromasia Not Reportable 05/12/21 04:05 Hypochromasia Not Reportable 05/12/21 04:05 Poikilocytosis Not Reportable 05/12/21 04:05 Anisocytosis Not Reportable 05/12/21 04:05 Microcytosis Not Reportable 05/12/21 04:05 Macrocytosis Not Reportable 05/12/21 04:05 Spherocytes Not Reportable 05/12/21 04:05 Pappenheimer Bodies Not Reportable 05/12/21 04:05 Sickle Cells Not Reportable 05/12/21 04:05 Target Cells Not Reportable 05/12/21 04:05 Tear Drop Cells Not Reportable 05/12/21 04:05 Ovalocytes Not Reportable 05/12/21 04:05 Helmet Cells Not Reportable 05/12/21 04:05 Ahuja-Waldorf Bodies Not Reportable 05/12/21 04:05 [place] Rings Not Reportable 05/12/21 04:05 Crow Cells Not Reportable 05/12/21 04:05 Bite Cells Not Reportable 05/12/21 04:05 Crenated Cell Not Reportable 05/12/21 04:05 Elliptocytes Not Reportable 05/12/21 04:05 Acanthocytes (Spur) Not Reportable 05/12/21 04:05 Rouleaux Not Reportable 05/12/21 04:05 Hemoglobin C Crystals Not Reportable 05/12/21 04:05 Schistocytes Not Reportable 05/12/21 04:05 Malaria parasites Not Reportable 05/12/21 04:05 Justin Bodies Not Reportable 05/12/21 04:05 Hem Pathologist Commnt No 05/12/21 04:05 D-Dimer 488.49 ng/mlDDU (0-234) H 06/05/21 05:26 ABG pH 7.403 pH Units (7.350-7.450) 05/14/21 02:23 POC ABG pCO2 45.4 mmHg (32.0-48.0) 05/03/21 04:49 ABG pCO2 50.2 mm Hg 05/14/21 02:23 POC ABG pO2 65.3 mmHg (83-108) L 05/03/21 04:49 ABG pO2 130.3 mm Hg (80.0-90.0) H 05/14/21 02:23 POC ABG HCO3 18.5 05/03/21 04:49 ABG HCO3 30.6 mmol/L (20.0-26.0) H 05/14/21 02:23 ABG O2 Saturation 98.5 % (95.0-99.0) 05/14/21 02:23 ABG O2 Content 17.9 (0.0-44) 05/14/21 02:23 POC ABG Base Excess -8.9 05/03/21 04:49 ABG Base Excess 4.9 mmol/L (-2.0-3.0) H 05/14/21 02:23 ABG Hemoglobin 13.0 gm/dl (12.0-16.0) 05/14/21 02:23 ABG Oxyhemoglobin 87.8 (94-98) L 05/03/21 04:49 ABG Carboxyhemoglobin 1.4 % (0.0-5.0) 05/14/21 02:23 ABG Methemoglobin 0.6 % (0.0-1.5) 05/14/21 02:23 ABG Sodium 133.0 mmol/L (136.0-145.0) L 05/03/21 04:49 ABG Potassium 3.9 mmol/L (3.40-4.50) 05/03/21 04:49 ABG Chloride 97.0 mmol/L (98-107) L 05/03/21 04:49 ABG Glucose 403 mg/dL (65-95) H 05/03/21 04:49 Oxyhemoglobin 96.5 % (95.0-99.0) 05/14/21 02:23 Carboxyhemoglobin 0.6 (0.5-1.5) 05/03/21 04:49 FiO2 90 % 05/14/21 02:23 FiO2 % 100.0 05/03/21 04:49 Sodium 139 mmol/L (137-145) 06/27/21 07:14 Potassium 4.0 mmol/L (3.6-5.0) D 06/27/21 07:14 Chloride 99.0 mmol/L (98-107) 06/27/21 07:14 Carbon Dioxide 31 mmol/L (22-30) H 06/27/21 07:14 Anion Gap 13 mmol/L 06/27/21 07:14 BUN 19 mg/dL (7-17) H 06/27/21 07:14 Creatinine 0.2 mg/dL (0.6-1.2) L 06/27/21 07:14 Estimated GFR > 60 ml/min 06/27/21 07:14 BUN/Creatinine Ratio 95 % 06/27/21 07:14 Glucose 112 mg/dL (65-100) H 06/27/21 07:14 POC Glucose 228 mg/dL (70-105) H 06/27/21 10:54 Hemoglobin A1c 8.5 % (4-6) H 04/18/21 07:36 Calcium 9.4 mg/dL (8.4-10.2) 06/27/21 07:14 Phosphorus 3.60 mg/dL (2.5-4.5) 05/06/21 05:00 Magnesium 2.00 mg/dL (1.7-2.3) 05/06/21 05:00 Ferritin 187.7 ng/mL (10.0-200.0) 06/05/21 05:26 Total Bilirubin 0.30 mg/dL (0.1-1.2) 06/26/21 07:20 AST 25 units/L (5-40) 06/26/21 07:20 ALT 77 units/L (7-56) H 06/26/21 07:20 Alkaline Phosphatase 61 units/L (35-129) 06/26/21 07:20 Lactate Dehydrogenase 475 units/L (91-180) H 06/05/21 05:26 C-Reactive Protein 0.10 mg/dL (0.00-1.30) 06/05/21 05:26 Total Protein 6.5 g/dL (6.3-8.2) 06/26/21 07:20 Albumin 3.3 g/dL (3.9-5) L 06/26/21 07:20 Albumin/Globulin Ratio 1.0 % 06/26/21 07:20 Triglycerides < 9 mg/dL (2-149) 05/03/21 04:30 Procalcitonin < 0.05 ng/mL (<0.15) 05/23/21 09:50 Arterial Blood Glucose 403 mg/dL (65-95) H 05/03/21 04:49 Arterial Blood Ionized Calcium 4.9 mg/dL (4.6-5.3) 05/03/21 04:49 Coronavirus (PCR) Positive (Negative) A 06/05/21 08:30 Amos/IV: Voiding Method Bedside Commode Active Medications - Current Medications Current Medications: Generic Name Dose Route Start Last Admin Trade Name Freq PRN Reason Stop Dose Admin Acetaminophen 650 mg 04/16/21 14:00 06/24/21 18:23 Acetaminophen 325 Mg Tab PO 650 mg Q4H PRN Administration Pain MILD(1-3)/Fever >100.5/[place] Albuterol 2.5 mg 04/16/21 13:39 04/21/21 20:39 Albuterol 2.5 Mg/3 Ml Nebu IH 2.5 mg Q4HRT PRN Administration Shortness Of Breath Ascorbic Acid 500 mg 04/24/21 10:00 06/27/21 10:11 Ascorbic Acid 500 Mg Tab PO 500 mg QDAY TUTU Administration Bisacodyl 10 mg 06/10/21 18:00 Bisacodyl 10 Mg Rect Supp [place] QDAY PRN Constipation Cholecalciferol 1,000 unit 04/17/21 10:00 06/27/21 10:15 Cholecalciferol (Vit D3) 1000 Unit (25 Mcg) Tab PO 1,000 unit QDAY TUTU Administration Clonazepam 1 mg 05/29/21 08:06 06/27/21 10:11 Clonazepam 0.5 Mg Tab PO 1 mg Q8H PRN Administration Anxiety Dextrose 50 ml 04/18/21 07:30 04/28/21 09:59 Dextrose 50% In Water (25gm) 50 Ml Syringe IV 50 ml Q30MIN PRN Administration Hypoglycemia Protocol Docusate Sodium 100 mg 04/30/21 10:00 06/27/21 10:11 Docusate Sodium 100 Mg Cap PO 100 mg BID TUTU Administration Enoxaparin Sodium 40 mg 05/19/21 22:00 06/26/21 22:46 Enoxaparin 40 Mg/0.4 Ml Inj SUB-Q 40 mg QDAY@2200 TUTU Administration Protocol Furosemide 40 mg 06/07/21 10:00 06/27/21 10:11 Furosemide 40 Mg/4 Ml Inj IV 40 mg QDAY TUTU Administration Insulin Glargine 15 units 06/25/21 10:00 06/27/21 10:09 Insulin Glargine 100 Units/Ml SUB-Q 15 units DAILY TUTU Administration Insulin Human Lispro 0 unit 05/18/21 12:00 06/27/21 13:13 Insulin Lispro 100 Unit/Ml SUB-Q 4 unit ACHS TUTU Administration Protocol Lorazepam 1 mg 05/25/21 14:40 06/11/21 23:55 Lorazepam 2 Mg/Ml Vial IV 1 mg Q6H PRN Administration Agitation Magnesium Hydroxide 30 ml 06/07/21 16:30 06/11/21 11:06 Magnesium Hydroxide (Mom) Oral Liqd Udc PO 30 ml QDAY PRN Administration Constipation Ondansetron HCl 4 mg 04/16/21 14:00 05/30/21 10:07 Ondansetron 4 Mg/2 Ml Inj IV 4 mg Q8H PRN Administration Nausea And Vomiting Prednisone 20 mg 06/26/21 16:00 06/27/21 10:11 Prednisone 20 Mg Tab PO 20 mg QDAY TUTU Administration Senna 17.2 mg 05/02/21 22:00 06/26/21 22:49 Sennosides 8.6 Mg Tab PO Not Given QHS TUTU Sodium Chloride 10 ml 04/16/21 22:00 06/27/21 10:12 Sodium Chloride 0.9% 10 Ml Flush Syringe IV 10 ml BID TUTU Administration Sodium Chloride 10 ml 04/16/21 13:39 05/22/21 15:21 Sodium Chloride 0.9% 10 Ml Flush Syringe IV 10 ml PRN PRN Administration LINE FLUSH Zinc Sulfate 220 mg 04/16/21 22:00 06/27/21 10:11 Zinc Sulfate 220 Mg Cap PO 220 mg BID TUTU Administration Zolpidem Tartrate 10 mg 05/26/21 08:56 06/26/21 22:47 Zolpidem 5 Mg Tab PO 10 mg QHS PRN Administration Insomnia Nutrition/Malnutrition Assess - Dietary Evaluation Nutrition/Malnutrition Findings: Nutrition Notes Start: 04/23/21 07:41 Freq: Status: Active Protocol: Document 06/04/21 11:07 FABIAN (Rec: 06/04/21 11:07 FABIAN [id number]) Nutrition Notes Initial or Follow up Brief Note Current Diagnosis Respiratory Failure Other Pertinent Diagnosis oral thrush, COVID-19 pneu Current Diet GI soft Subjective/Other Information Pt continues to eat 75-100% of meals. Nutrition Intervention Revisit per MD consult or patient Sign Off request:
[2021-06-27] MEDS: SENNOSIDES 8.6 MG TAB PO SCH (21:31)
[2021-06-27] MEDS: ENOXAPARIN 40 MG/0.4 ML INJ SUB-Q SCH (21:32)
[2021-06-27] MEDS: ZOLPIDEM 5 MG TAB PO PRN (22:44)
[2021-06-28 06:09] LABS: Hematocrit 38.2 % (30.3-42.9); Mean Corpuscular HGB Conc 34 % (30-34); Mean Corpuscular Volume 95 fl (79-97); Platelet Count 203 K/mm3 (140-440); Red Blood Count 4.02 M/mm3 (3.65-5.03); Red Cell Distribution Width 19.8 % (13.2-15.2)
[2021-06-28 06:31] LABS: Alanine Aminotransferase 63 units/L (7-56); Albumin 3.3 g/dL (3.9-5); Blood Urea Nitrogen 22 mg/dL (7-17); Calcium 9.3 mg/dL (8.4-10.2); Hemolysis Index 4
[2021-06-28 06:34] LABS: BUN/Creatinine Ratio 110
[2021-06-28] MEDS: INSULIN LISPRO 100 UNIT/ML SUB-Q SCH ×4 (09:00→21:50)
--- NOTE | 2021-06-28 09:07 | Progress Note ---
Assessment and Plan 50 y/o female with acute respiratory failure secondary to COVID19 pneumonia. 06/28/21: Continue to wean as tolerated. Will drop steroids down even further next week. Will see PRN over the weekend. 06/26/21: Will drop steroids down to 20 starting tomorrow. Prone. Continue to wean as tolerated. 06/24/21: Continue Pred, will drop to 20 daily tomorrow. Prone if able. Hopeful they can wean FiO2 more. May need to consider increasing flow for a while. 06/21/21: Continue pred at 40, will decrease likely Thursday/Thursday to 20 d aily. Prone if able. Continue to wean as tolerated. Prognosis still remains guarded. 06/20/21: Will drop steroids down to 40 today. Proning. Continue to wean FiO2. 06/18/21: Wean Fio2 for sats >88%. Please encourage proning. Drop steroids down to 40 on . 06/14/21: Continue oral steroid therapy. Will do further weaning next week. Wean for sats >88% and prone as tolerated. Will see as needed over the weekend. 06/13/21: Will change to prednisone 60 daily starting tomorrow. Prone if able and wean for sats >88% 06/11/21: no new recs, will change to oral steroids tomorrow, continue to prone if able and wean for sats >88% 06/10/21: Will change to oral steroids on Thursday to begin prolonged taper 06/06/21: Continue to wean as tolerated, will drop steroids on tomorrow. 06/04/21: Clinically no change. Will drop steroids down the end of this week. 05/31/21: Clinically no change. Not eligible for LTACH. Encourage Proning. Will drop steroids down to 40 q8 05/29/21: No acute changes clinically. Still on HFNC but not really able to wean. Continue to encourage proning. Will drop steroids further on Thursday. 05/27/21: No improvement over the weekend but also no worsening. No other strategies to offer. Please continue to encourage patient to prone. I dropped steroids on yesterday. Will wean more later in the week. 05/24/21: No new recs again for today. Will see as needed over the weekend but follow chart peripherally for changes. 05/22/21: No new recs for today. Prognosis remains guarded. 05/21/21: Wean as tolerated. Prone if able. Guarded prognosis 05/20/21: COntinue current level of care. 05/17/21: Prone if possible. Wean FiO2 for sats >88%. Continue scheduled ativan. Prognosis is very very guarded. Unfunded so not a candidate for LTACH 05/16/21: Prone if willing. Wean FIO2 if patient will allow. Anxiety control. Prognosis still remains very guarded. 05/15/21: Not sure if MAR is accurate but may have only gotten one dose of patricia eduled anixolytic therapy. Continue proning as tolerated, and wean FiO2 and flow for sats >88%. Prognosi remains very very guarded to poor. 05/14/21: Will discontinue the buspar and make the ativan scheduled but will do q6 as oppose to q4 and attempt to leave parameters for nursing when not to give. If anxiety could be controlled, feel that patient could be weaned further. She has no funding so she is not a candidate for LTACH. Prone if possible. Guarded prognosis. This is her 28th day. 05/13/21: Ordered buspar 10 BID to start with to help with anxiety. Please continue to wean FiO2 as tolerated. Will remind nurse that there is PRN ativan available. Continue higher doses of steroids. Prone if able. 05/12/21: Patient may need something longer acting for anxiety. Per chart has n ot gotten any ativan in days. Would be ok with either buspar or low dose klonopin bid. COntinue higher doses of steroids as patient seems to be responding. Prone if possible. 05/11/21: Continue high doses of steroids and continue to wean for sats >88%. Please encourage proning. 05/10/21: Will continue this dose of steroid at least through the weekend and assess for improvement. will speak with RT about aggressive weaning. Full dose anticoagulation continues. Very very guarded to poor prognosis. 05/09/21: Going to consider increasing steroids to 125q8, maybe as early as tomorrow. continue full dose anticoagulation. 05/08/21: Continue anticoagulation and steroids. Prone if possible. Anxiety control. No objection to CTA if this can happen. Very very guarded prognosis. 05/07/21: Spoke with IMS, not opposed to full dose anticoagulation. If patient goes back on NRB HFNC combo may need to consider restarting PPN again. Encourage proning. Guarded prognosis. 05/06/21: Continue to wean FiO2 and flow for sats >88%. Tolerating diet now so will stop PPN. Continue anxiety control. Continue IV steroids. Would not object to transfer to COVID floor if bed available. Not sure why she was titrated back up to 100% from 85 as all sats documented in the RT's notes were acceptable. Same for under vital signs as well. 05/03/21: Set back last night from yesterday. Continue bipap therapy for now and attempt HFNC maybe later this afternoon. Continue to use PRN ativan but may need to schedule as she likely took off mask from anxiety. Continue IV steroids. Hold on transfer to COVID Floor. 05/02/21: Continue to wean FiO2 as tolerated for sats >88%. Will continue bipap at night. Patient has no funding so not a candidate for LTACH. Given that she has been stable and not requiring the combo of HFNC and NRB, will consider moving to COVID floor. 05/01/21: Continue to wean FiO2 for sats >88%. A sat of 90 is more than acceptable and oxygen should not be increased for this unless patient desats and remains at a sat lower than 88. Bipap at night to give some form of relief and HFNC during the day. Currently on just this alone which is improvement. Ok with daily diuresis but must monitor renal function and BP closely. She was over diuresed last week and we ended up giving fluid back. Prognosis remains guarded. 04/30/21: Will start CLinimix today for nutritional support, without electrolytes. Check labs in am. Prone if able. Continue precedx for anxiety. Very very guarded prognosis. Attempting our best to not intubate. 04/29/21: Continue precedex. Continue IV solumedrol. Prone if able. Guarded prognosis. 04/28/21: Continue Precedex. Picc team attempting to place line now. Stable on Bipap. Ordered steroids IV solumedrol to start today. Prognosis remains guarded, still at very high risk for intubation. 04/27/21: Hypotension improving/improved. Hold on any further lasix dosing. Continue precedex to help with anxeity. later today please attempt HFNC with NRB if needed. Attempt to feed if possible. Steroids end today, please order solumedrol 40q8 to start tomorrow (04/28/21). guarded prognosis. 04/26/21: Hypotension today, most likely from precedex use and diuresis that I did the last several days. Will bolus again today. Consider midodrine if BP does not respond. 04/25/21: Lasix again today. Keep PRN ativan for now. Hold on precedex for now. Guarded prognosis. Labs ordered for tomorrow. 04/24/21: Lasix today. Will also start patient on low dose PRN ativan. If this does not help will then try precedex. Guarded prognosis. 04/23/21: Prone as tolerated. No lasix today. Continue decadron. Guarded prog nosis. High risk for intubation and high mortality with intubation. 04/19/21: Prone as tolerated during the day and sleep prone at night. Continue IV remdesivir and steroids. Did get actemra. Guarded prognosis. 1. Daily net negative state 2. Prone if possible 3. IV remdesivir. 4. Should be a candidate for Actemra 5. IV steroids 6. Guarded Prognosis Subjective Date of service: 06/28/21 Principal diagnosis: Covid-19 Interval history: No aucte events. Was taken up to 70 again yesterday but weaned back down to 55 overnight. Objective Vital Signs - 12hr 06/27/21 06/27/21 06/27/21 21:24 22:00 22:33 Temperature 98.0 F Pulse Rate 78 Respiratory 19 20 Rate Respiratory 18 Rate [Lower Abdomen] Blood Pressure 109/70 O2 Sat by Pulse 94 92 98 Oximetry 06/28/21 06/28/21 03:00 04:21 Temperature 98.0 F Pulse Rate 77 Respiratory 16 Rate Respiratory Rate [Lower Abdomen] Blood Pressure 104/63 O2 Sat by Pulse 95 95 Oximetry Constitutional: no acute distress, alert Eyes: non-icteric ENT: oropharynx moist Neck: supple Effort: normal Ascultation: Bilateral: diminished breath sounds Cardiovascular: regular rate and rhythm Gastrointestinal: normoactive bowel sounds, soft, non-tender, non-distended Integumentary: normal Extremities: no cyanosis, no edema, pink and warm Neurologic: normal mental status, non-focal exam, pupils equal and round, CN II- XII normal Psychiatric: mood appropriate, affect normal CBC and BMP: 06/28/21 05:43 06/28/21 05:43 ABG, PT/INR, D-dimer: ABG ABG pH 7.403 pH Units (7.350-7.450) 05/14/21 02:23 POC ABG pCO2 45.4 mmHg (32.0-48.0) 05/03/21 04:49 ABG pCO2 50.2 mm Hg 05/14/21 02:23 POC ABG pO2 65.3 mmHg (83-108) L 05/03/21 04:49 ABG pO2 130.3 mm Hg (80.0-90.0) H 05/14/21 02:23 POC ABG HCO3 18.5 05/03/21 04:49 ABG O2 Saturation 98.5 % (95.0-99.0) 05/14/21 02:23 PT/INR, D-dimer D-Dimer 488.49 ng/mlDDU (0-234) H 06/05/21 05:26 Abnormal lab findings: Abnormal Labs 04/16/21 04/16/21 04/16/21 11:42 11:42 11:42 WBC MCH MCHC RDW 16.1 H Lymph % (Auto) 7.8 L Lymph # (Auto) 0.8 L Baso # (Auto) Seg Neutrophils % 87.7 H Seg Neuts % (Manual) Lymphocytes % (Manual) Seg Neutrophils # 8.5 H Seg Neutrophils # Man Lymphocytes # (Manual) D-Dimer 338.70 H ABG pH POC ABG pO2 ABG pO2 ABG HCO3 ABG O2 Saturation ABG Base Excess ABG Oxyhemoglobin ABG Sodium ABG Chloride ABG Glucose Oxyhemoglobin Carboxyhemoglobin Sodium Potassium Chloride Carbon Dioxide BUN Creatinine Glucose 194 H POC Glucose Hemoglobin A1c Ferritin AST ALT Alkaline Phosphatase Lactate Dehydrogenase C-Reactive Protein Total Protein 8.4 H Albumin 3.8 L Arterial Blood Glucose Coronavirus (PCR) 04/16/21 04/16/21 04/17/21 11:42 11:42 03:50 WBC MCH MCHC RDW 16.0 H Lymph % (Auto) 7.7 L Lymph # (Auto) 0.6 L Baso # (Auto) Seg Neutrophils % 89.8 H Seg Neuts % (Manual) Lymphocytes % (Manual) Seg Neutrophils # Seg Neutrophils # Man Lymphocytes # (Manual) D-Dimer ABG pH POC ABG pO2 ABG pO2 ABG HCO3 ABG O2 Saturation ABG Base Excess ABG Oxyhemoglobin ABG Sodium ABG Chloride ABG Glucose Oxyhemoglobin Carboxyhemoglobin Sodium Potassium Chloride Carbon Dioxide BUN Creatinine Glucose 195 H POC Glucose Hemoglobin A1c Ferritin 254.3 H AST ALT Alkaline Phosphatase Lactate Dehydrogenase 359 H C-Reactive Protein 15.20 H Total Protein Albumin Arterial Blood Glucose Coronavirus (PCR) 04/17/21 04/17/21 04/17/21 03:50 08:26 08:26 WBC MCH MCHC RDW Lymph % (Auto) Lymph # (Auto) Baso # (Auto) Seg Neutrophils % Seg Neuts % (Manual) Lymphocytes % (Manual) Seg Neutrophils # Seg Neutrophils # Man Lymphocytes # (Manual) D-Dimer 262.48 H ABG pH POC ABG pO2 ABG pO2 ABG HCO3 ABG O2 Saturation ABG Base Excess ABG Oxyhemoglobin ABG Sodium ABG Chloride ABG Glucose Oxyhemoglobin Carboxyhemoglobin Sodium Potassium Chloride Carbon Dioxide BUN 20 H Creatinine 0.5 L Glucose 249 H 225 H POC Glucose Hemoglobin A1c Ferritin AST ALT Alkaline Phosphatase Lactate Dehydrogenase 338 H C-Reactive Protein 17.20 H Total Protein Albumin 3.2 L Arterial Blood Glucose Coronavirus (PCR) 04/17/21 04/17/21 04/17/21 08:26 15:04 Unknown WBC MCH MCHC RDW Lymph % (Auto) Lymph # (Auto) Baso # (Auto) Seg Neutrophils % Seg Neuts % (Manual) Lymphocytes % (Manual) Seg Neutrophils # Seg Neutrophils # Man Lymphocytes # (Manual) D-Dimer ABG pH POC ABG pO2 ABG pO2 ABG HCO3 ABG O2 Saturation ABG Base Excess ABG Oxyhemoglobin ABG Sodium ABG Chloride ABG Glucose Oxyhemoglobin Carboxyhemoglobin Sodium Potassium Chloride Carbon Dioxide BUN 20 H Creatinine 0.5 L Glucose 246 H POC Glucose Hemoglobin A1c Ferritin 392.0 H AST ALT Alkaline Phosphatase Lactate Dehydrogenase C-Reactive Protein Total Protein 8.3 H Albumin 3.1 L Arterial Blood Glucose Coronavirus (PCR) Positive A 04/18/21 04/18/21 04/18/21 05:06 05:06 07:36 WBC 11.6 H MCH MCHC RDW 16.1 H Lymph % (Auto) Lymph # (Auto) Baso # (Auto) Seg Neutrophils % Seg Neuts % (Manual) Lymphocytes % (Manual) Seg Neutrophils # Seg Neutrophils # Man Lymphocytes # (Manual) D-Dimer ABG pH POC ABG pO2 ABG pO2 ABG HCO3 ABG O2 Saturation ABG Base Excess ABG Oxyhemoglobin ABG Sodium ABG Chloride ABG Glucose Oxyhemoglobin Carboxyhemoglobin Sodium Potassium 5.2 H Chloride Carbon Dioxide BUN 22 H Creatinine 0.5 L Glucose 315 H POC Glucose Hemoglobin A1c 8.5 H Ferritin AST ALT Alkaline Phosphatase Lactate Dehydrogenase C-Reactive Protein Total Protein Albumin 3.3 L Arterial Blood Glucose Coronavirus (PCR) 04/18/21 04/18/21 04/18/21 11:59 16:43 23:24 WBC MCH MCHC RDW Lymph % (Auto) Lymph # (Auto) Baso # (Auto) Seg Neutrophils % Seg Neuts % (Manual) Lymphocytes % (Manual) Seg Neutrophils # Seg Neutrophils # Man Lymphocytes # (Manual) D-Dimer ABG pH POC ABG pO2 ABG pO2 ABG HCO3 ABG O2 Saturation ABG Base Excess ABG Oxyhemoglobin ABG Sodium ABG Chloride ABG Glucose Oxyhemoglobin Carboxyhemoglobin Sodium Potassium Chloride Carbon Dioxide BUN Creatinine Glucose POC Glucose 284 H 273 H 290 H Hemoglobin A1c Ferritin AST ALT Alkaline Phosphatase Lactate Dehydrogenase C-Reactive Protein Total Protein Albumin Arterial Blood Glucose Coronavirus (PCR) 04/19/21 04/19/21 04/19/21 04:19 04:19 08:10 WBC MCH MCHC RDW 15.7 H Lymph % (Auto) Lymph # (Auto) Baso # (Auto) Seg Neutrophils % Seg Neuts % (Manual) Lymphocytes % (Manual) Seg Neutrophils # Seg Neutrophils # Man Lymphocytes # (Manual) D-Dimer ABG pH POC ABG pO2 ABG pO2 ABG HCO3 ABG O2 Saturation ABG Base Excess ABG Oxyhemoglobin ABG Sodium ABG Chloride ABG Glucose Oxyhemoglobin Carboxyhemoglobin Sodium Potassium Chloride Carbon Dioxide BUN 27 H Creatinine 0.4 L Glucose 184 H POC Glucose 194 H Hemoglobin A1c Ferritin AST ALT Alkaline Phosphatase Lactate Dehydrogenase C-Reactive Protein Total Protein Albumin 3.1 L Arterial Blood Glucose Coronavirus (PCR) 04/19/21 04/19/21 04/19/21 11:38 16:25 22:04 WBC MCH MCHC RDW Lymph % (Auto) Lymph # (Auto) Baso # (Auto) Seg Neutrophils % Seg Neuts % (Manual) Lymphocytes % (Manual) Seg Neutrophils # Seg Neutrophils # Man Lymphocytes # (Manual) D-Dimer ABG pH POC ABG pO2 ABG pO2 ABG HCO3 ABG O2 Saturation ABG Base Excess ABG Oxyhemoglobin ABG Sodium ABG Chloride ABG Glucose Oxyhemoglobin Carboxyhemoglobin Sodium Potassium Chloride Carbon Dioxide BUN Creatinine Glucose POC Glucose 224 H 297 H 251 H Hemoglobin A1c Ferritin AST ALT Alkaline Phosphatase Lactate Dehydrogenase C-Reactive Protein Total Protein Albumin Arterial Blood Glucose Coronavirus (PCR) 04/20/21 04/20/21 04/20/21 05:28 08:43 16:21 WBC MCH MCHC RDW Lymph % (Auto) Lymph # (Auto) Baso # (Auto) Seg Neutrophils % Seg Neuts % (Manual) Lymphocytes % (Manual) Seg Neutrophils # Seg Neutrophils # Man Lymphocytes # (Manual) D-Dimer ABG pH POC ABG pO2 ABG pO2 ABG HCO3 ABG O2 Saturation ABG Base Excess ABG Oxyhemoglobin ABG Sodium ABG Chloride ABG Glucose Oxyhemoglobin Carboxyhemoglobin Sodium Potassium Chloride Carbon Dioxide BUN 27 H Creatinine Glucose 192 H POC Glucose 173 H 253 H Hemoglobin A1c Ferritin AST ALT Alkaline Phosphatase Lactate Dehydrogenase C-Reactive Protein Total Protein Albumin 3.0 L Arterial Blood Glucose Coronavirus (PCR) 04/21/21 04/21/21 04/21/21 07:58 12:05 16:08 WBC MCH MCHC RDW Lymph % (Auto) Lymph # (Auto) Baso # (Auto) Seg Neutrophils % Seg Neuts % (Manual) Lymphocytes % (Manual) Seg Neutrophils # Seg Neutrophils # Man Lymphocytes # (Manual) D-Dimer ABG pH POC ABG pO2 ABG pO2 ABG HCO3 ABG O2 Saturation ABG Base Excess ABG Oxyhemoglobin ABG Sodium ABG Chloride ABG Glucose Oxyhemoglobin Carboxyhemoglobin Sodium Potassium Chloride Carbon Dioxide BUN Creatinine Glucose POC Glucose 140 H 252 H 214 H Hemoglobin A1c Ferritin AST ALT Alkaline Phosphatase Lactate Dehydrogenase C-Reactive Protein Total Protein Albumin Arterial Blood Glucose Coronavirus (PCR) 04/21/21 04/22/21 04/22/21 21:42 08:37 12:01 WBC MCH MCHC RDW Lymph % (Auto) Lymph # (Auto) Baso # (Auto) Seg Neutrophils % Seg Neuts % (Manual) Lymphocytes % (Manual) Seg Neutrophils # Seg Neutrophils # Man Lymphocytes # (Manual) D-Dimer ABG pH 7.457 H POC ABG pO2 49.4 L ABG pO2 ABG HCO3 ABG O2 Saturation ABG Base Excess ABG Oxyhemoglobin 85.6 L ABG Sodium ABG Chloride ABG Glucose 121 H Oxyhemoglobin Carboxyhemoglobin 0.3 L Sodium Potassium Chloride Carbon Dioxide BUN Creatinine Glucose POC Glucose 162 H 227 H Hemoglobin A1c Ferritin AST ALT Alkaline Phosphatase Lactate Dehydrogenase C-Reactive Protein Total Protein Albumin Arterial Blood Glucose 121 H Coronavirus (PCR) 04/22/21 04/22/21 04/23/21 16:26 22:23 04:52 WBC MCH MCHC RDW 15.7 H Lymph % (Auto) Lymph # (Auto) Baso # (Auto) Seg Neutrophils % Seg Neuts % (Manual) Lymphocytes % (Manual) Seg Neutrophils # Seg Neutrophils # Man Lymphocytes # (Manual) D-Dimer ABG pH POC ABG pO2 ABG pO2 ABG HCO3 ABG O2 Saturation ABG Base Excess ABG Oxyhemoglobin ABG Sodium ABG Chloride ABG Glucose Oxyhemoglobin Carboxyhemoglobin Sodium Potassium Chloride Carbon Dioxide BUN Creatinine Glucose POC Glucose 200 H 136 H Hemoglobin A1c Ferritin AST ALT Alkaline Phosphatase Lactate Dehydrogenase C-Reactive Protein Total Protein Albumin Arterial Blood Glucose Coronavirus (PCR) 04/23/21 04/23/21 04/23/21 04:52 12:06 17:41 WBC MCH MCHC RDW Lymph % (Auto) Lymph # (Auto) Baso # (Auto) Seg Neutrophils % Seg Neuts % (Manual) Lymphocytes % (Manual) Seg Neutrophils # Seg Neutrophils # Man Lymphocytes # (Manual) D-Dimer ABG pH POC ABG pO2 ABG pO2 ABG HCO3 ABG O2 Saturation ABG Base Excess ABG Oxyhemoglobin ABG Sodium ABG Chloride ABG Glucose Oxyhemoglobin Carboxyhemoglobin Sodium 136 L Potassium Chloride 97.7 L Carbon Dioxide BUN 23 H Creatinine Glucose 101 H POC Glucose 202 H 169 H Hemoglobin A1c Ferritin AST 46 H ALT Alkaline Phosphatase Lactate Dehydrogenase C-Reactive Protein Total Protein Albumin 3.3 L Arterial Blood Glucose Coronavirus (PCR) 04/23/21 04/24/21 04/24/21 23:08 05:17 08:38 WBC MCH MCHC RDW Lymph % (Auto) Lymph # (Auto) Baso # (Auto) Seg Neutrophils % Seg Neuts % (Manual) Lymphocytes % (Manual) Seg Neutrophils # Seg Neutrophils # Man Lymphocytes # (Manual) D-Dimer ABG pH POC ABG pO2 ABG pO2 ABG HCO3 ABG O2 Saturation ABG Base Excess ABG Oxyhemoglobin ABG Sodium ABG Chloride ABG Glucose Oxyhemoglobin Carboxyhemoglobin Sodium Potassium Chloride Carbon Dioxide BUN Creatinine Glucose POC Glucose 111 H 108 H 126 H Hemoglobin A1c Ferritin AST ALT Alkaline Phosphatase Lactate Dehydrogenase C-Reactive Protein Total Protein Albumin Arterial Blood Glucose Coronavirus (PCR) 04/24/21 04/24/21 04/24/21 11:54 17:57 21:23 WBC MCH MCHC RDW Lymph % (Auto) Lymph # (Auto) Baso # (Auto) Seg Neutrophils % Seg Neuts % (Manual) Lymphocytes % (Manual) Seg Neutrophils # Seg Neutrophils # Man Lymphocytes # (Manual) D-Dimer ABG pH POC ABG pO2 ABG pO2 ABG HCO3 ABG O2 Saturation ABG Base Excess ABG Oxyhemoglobin ABG Sodium ABG Chloride ABG Glucose Oxyhemoglobin Carboxyhemoglobin Sodium Potassium Chloride Carbon Dioxide BUN Creatinine Glucose POC Glucose 147 H 177 H 138 H Hemoglobin A1c Ferritin AST ALT Alkaline Phosphatase Lactate Dehydrogenase C-Reactive Protein Total Protein Albumin Arterial Blood Glucose Coronavirus (PCR) 04/25/21 04/25/21 04/25/21 07:06 11:23 15:43 WBC MCH MCHC RDW Lymph % (Auto) Lymph # (Auto) Baso # (Auto) Seg Neutrophils % Seg Neuts % (Manual) Lymphocytes % (Manual) Seg Neutrophils # Seg Neutrophils # Man Lymphocytes # (Manual) D-Dimer ABG pH POC ABG pO2 ABG pO2 ABG HCO3 ABG O2 Saturation ABG Base Excess ABG Oxyhemoglobin ABG Sodium ABG Chloride ABG Glucose Oxyhemoglobin Carboxyhemoglobin Sodium Potassium Chloride Carbon Dioxide BUN Creatinine Glucose POC Glucose 147 H 169 H 227 H Hemoglobin A1c Ferritin AST ALT Alkaline Phosphatase Lactate Dehydrogenase C-Reactive Protein Total Protein Albumin Arterial Blood Glucose Coronavirus (PCR) 04/25/21 04/26/21 04/26/21 21:22 02:45 05:15 WBC MCH MCHC RDW Lymph % (Auto) Lymph # (Auto) Baso # (Auto) Seg Neutrophils % Seg Neuts % (Manual) Lymphocytes % (Manual) Seg Neutrophils # Seg Neutrophils # Man Lymphocytes # (Manual) D-Dimer ABG pH POC ABG pO2 70.7 L ABG pO2 ABG HCO3 ABG O2 Saturation ABG Base Excess ABG Oxyhemoglobin 93.0 L ABG Sodium 132.7 L ABG Chloride ABG Glucose 115 H Oxyhemoglobin Carboxyhemoglobin Sodium Potassium Chloride 95.8 L Carbon Dioxide 32 H BUN 20 H Creatinine Glucose 102 H POC Glucose 196 H Hemoglobin A1c Ferritin AST ALT Alkaline Phosphatase Lactate Dehydrogenase C-Reactive Protein Total Protein Albumin Arterial Blood Glucose 115 H Coronavirus (PCR) 04/26/21 04/26/21 04/26/21 11:49 16:09 21:07 WBC MCH MCHC RDW Lymph % (Auto) Lymph # (Auto) Baso # (Auto) Seg Neutrophils % Seg Neuts % (Manual) Lymphocytes % (Manual) Seg Neutrophils # Seg Neutrophils # Man Lymphocytes # (Manual) D-Dimer ABG pH POC ABG pO2 ABG pO2 ABG HCO3 ABG O2 Saturation ABG Base Excess ABG Oxyhemoglobin ABG Sodium ABG Chloride ABG Glucose Oxyhemoglobin Carboxyhemoglobin Sodium Potassium Chloride Carbon Dioxide BUN Creatinine Glucose POC Glucose 114 H 188 H 136 H Hemoglobin A1c Ferritin AST ALT Alkaline Phosphatase Lactate Dehydrogenase C-Reactive Protein Total Protein Albumin Arterial Blood Glucose Coronavirus (PCR) 04/27/21 04/27/21 04/28/21 17:34 22:12 08:26 WBC MCH MCHC RDW Lymph % (Auto) Lymph # (Auto) Baso # (Auto) Seg Neutrophils % Seg Neuts % (Manual) Lymphocytes % (Manual) Seg Neutrophils # Seg Neutrophils # Man Lymphocytes # (Manual) D-Dimer ABG pH POC ABG pO2 ABG pO2 ABG HCO3 ABG O2 Saturation ABG Base Excess ABG Oxyhemoglobin ABG Sodium ABG Chloride ABG Glucose Oxyhemoglobin Carboxyhemoglobin Sodium Potassium Chloride Carbon Dioxide BUN Creatinine Glucose POC Glucose 128 H 159 H 69 L Hemoglobin A1c Ferritin AST ALT Alkaline Phosphatase Lactate Dehydrogenase C-Reactive Protein Total Protein Albumin Arterial Blood Glucose Coronavirus (PCR) 04/28/21 04/28/21 04/29/21 12:22 21:11 06:05 WBC MCH MCHC RDW Lymph % (Auto) Lymph # (Auto) Baso # (Auto) Seg Neutrophils % Seg Neuts % (Manual) Lymphocytes % (Manual) Seg Neutrophils # Seg Neutrophils # Man Lymphocytes # (Manual) D-Dimer ABG pH POC ABG pO2 ABG pO2 ABG HCO3 ABG O2 Saturation ABG Base Excess ABG Oxyhemoglobin ABG Sodium ABG Chloride ABG Glucose Oxyhemoglobin Carboxyhemoglobin Sodium 132 L Potassium Chloride 94.4 L Carbon Dioxide BUN Creatinine 0.2 L D Glucose 140 H POC Glucose 141 H 171 H Hemoglobin A1c Ferritin AST ALT Alkaline Phosphatase Lactate Dehydrogenase C-Reactive Protein Total Protein Albumin Arterial Blood Glucose Coronavirus (PCR) 04/29/21 04/29/21 04/29/21 06:05 07:24 11:36 WBC MCH MCHC 35 H RDW 15.9 H Lymph % (Auto) Lymph # (Auto) Baso # (Auto) Seg Neutrophils % Seg Neuts % (Manual) Lymphocytes % (Manual) Seg Neutrophils # Seg Neutrophils # Man Lymphocytes # (Manual) D-Dimer ABG pH POC ABG pO2 ABG pO2 ABG HCO3 ABG O2 Saturation ABG Base Excess ABG Oxyhemoglobin ABG Sodium ABG Chloride ABG Glucose Oxyhemoglobin Carboxyhemoglobin Sodium Potassium Chloride Carbon Dioxide BUN Creatinine Glucose POC Glucose 141 H 220 H Hemoglobin A1c Ferritin AST ALT Alkaline Phosphatase Lactate Dehydrogenase C-Reactive Protein Total Protein Albumin Arterial Blood Glucose Coronavirus (PCR) 04/29/21 04/29/21 04/29/21 14:23 15:30 17:06 WBC MCH MCHC RDW Lymph % (Auto) Lymph # (Auto) Baso # (Auto) Seg Neutrophils % Seg Neuts % (Manual) Lymphocytes % (Manual) Seg Neutrophils # Seg Neutrophils # Man Lymphocytes # (Manual) D-Dimer ABG pH POC ABG pO2 ABG pO2 52.6 L ABG HCO3 ABG O2 Saturation 86.4 L ABG Base Excess ABG Oxyhemoglobin ABG Sodium ABG Chloride ABG Glucose Oxyhemoglobin 84.6 L Carboxyhemoglobin Sodium Potassium Chloride Carbon Dioxide BUN Creatinine Glucose POC Glucose 173 H 158 H Hemoglobin A1c Ferritin AST ALT Alkaline Phosphatase Lactate Dehydrogenase C-Reactive Protein Total Protein Albumin Arterial Blood Glucose Coronavirus (PCR) 04/29/21 04/30/21 04/30/21 21:27 07:16 08:00 WBC MCH MCHC RDW 16.1 H Lymph % (Auto) Lymph # (Auto) Baso # (Auto) Seg Neutrophils % Seg Neuts % (Manual) Lymphocytes % (Manual) Seg Neutrophils # Seg Neutrophils # Man Lymphocytes # (Manual) D-Dimer ABG pH POC ABG pO2 ABG pO2 ABG HCO3 ABG O2 Saturation ABG Base Excess ABG Oxyhemoglobin ABG Sodium ABG Chloride ABG Glucose Oxyhemoglobin Carboxyhemoglobin Sodium Potassium Chloride Carbon Dioxide BUN Creatinine Glucose POC Glucose 244 H 175 H Hemoglobin A1c Ferritin AST ALT Alkaline Phosphatase Lactate Dehydrogenase C-Reactive Protein Total Protein Albumin Arterial Blood Glucose Coronavirus (PCR) 04/30/21 04/30/21 04/30/21 08:00 08:00 11:03 WBC MCH MCHC RDW Lymph % (Auto) Lymph # (Auto) Baso # (Auto) Seg Neutrophils % Seg Neuts % (Manual) Lymphocytes % (Manual) Seg Neutrophils # Seg Neutrophils # Man Lymphocytes # (Manual) D-Dimer 1796.87 H ABG pH POC ABG pO2 ABG pO2 ABG HCO3 ABG O2 Saturation ABG Base Excess ABG Oxyhemoglobin ABG Sodium ABG Chloride ABG Glucose Oxyhemoglobin Carboxyhemoglobin Sodium 135 L Potassium Chloride 96.3 L Carbon Dioxide BUN Creatinine 0.2 L Glucose 153 H POC Glucose 183 H Hemoglobin A1c Ferritin AST 41 H ALT 76 H Alkaline Phosphatase 160 H Lactate Dehydrogenase 522 H C-Reactive Protein Total Protein 6.1 L Albumin 3.1 L Arterial Blood Glucose Coronavirus (PCR) 04/30/21 04/30/21 05/01/21 17:04 22:17 05:39 WBC MCH MCHC RDW Lymph % (Auto) Lymph # (Auto) Baso # (Auto) Seg Neutrophils % Seg Neuts % (Manual) Lymphocytes % (Manual) Seg Neutrophils # Seg Neutrophils # Man Lymphocytes # (Manual) D-Dimer ABG pH POC ABG pO2 ABG pO2 ABG HCO3 ABG O2 Saturation ABG Base Excess ABG Oxyhemoglobin ABG Sodium ABG Chloride ABG Glucose Oxyhemoglobin Carboxyhemoglobin Sodium 133 L Potassium Chloride 92.1 L Carbon Dioxide BUN 24 H Creatinine 0.4 L D Glucose 269 H POC Glucose 167 H 208 H Hemoglobin A1c Ferritin AST ALT 66 H Alkaline Phosphatase 142 H Lactate Dehydrogenase C-Reactive Protein Total Protein Albumin 3.2 L Arterial Blood Glucose Coronavirus (PCR) 05/01/21 05/01/21 05/01/21 05:39 05:39 07:45 WBC MCH MCHC RDW 16.0 H Lymph % (Auto) Lymph # (Auto) Baso # (Auto) Seg Neutrophils % Seg Neuts % (Manual) Lymphocytes % (Manual) Seg Neutrophils # Seg Neutrophils # Man Lymphocytes # (Manual) D-Dimer 3984.95 H ABG pH POC ABG pO2 ABG pO2 ABG HCO3 ABG O2 Saturation ABG Base Excess ABG Oxyhemoglobin ABG Sodium ABG Chloride ABG Glucose Oxyhemoglobin Carboxyhemoglobin Sodium Potassium Chloride Carbon Dioxide BUN Creatinine Glucose POC Glucose 229 H Hemoglobin A1c Ferritin AST ALT Alkaline Phosphatase Lactate Dehydrogenase C-Reactive Protein Total Protein Albumin Arterial Blood Glucose Coronavirus (PCR) 05/01/21 05/01/21 05/01/21 12:10 15:46 21:06 WBC MCH MCHC RDW Lymph % (Auto) Lymph # (Auto) Baso # (Auto) Seg Neutrophils % Seg Neuts % (Manual) Lymphocytes % (Manual) Seg Neutrophils # Seg Neutrophils # Man Lymphocytes # (Manual) D-Dimer ABG pH POC ABG pO2 ABG pO2 ABG HCO3 ABG O2 Saturation ABG Base Excess ABG Oxyhemoglobin ABG Sodium ABG Chloride ABG Glucose Oxyhemoglobin Carboxyhemoglobin Sodium Potassium Chloride Carbon Dioxide BUN Creatinine Glucose POC Glucose 296 H 279 H 232 H Hemoglobin A1c Ferritin AST ALT Alkaline Phosphatase Lactate Dehydrogenase C-Reactive Protein Total Protein Albumin Arterial Blood Glucose Coronavirus (PCR) 05/02/21 05/02/21 05/02/21 04:55 04:55 04:55 WBC MCH MCHC RDW 16.1 H Lymph % (Auto) Lymph # (Auto) Baso # (Auto) Seg Neutrophils % Seg Neuts % (Manual) Lymphocytes % (Manual) Seg Neutrophils # Seg Neutrophils # Man Lymphocytes # (Manual) D-Dimer 1401.08 H ABG pH POC ABG pO2 ABG pO2 ABG HCO3 ABG O2 Saturation ABG Base Excess ABG Oxyhemoglobin ABG Sodium ABG Chloride ABG Glucose Oxyhemoglobin Carboxyhemoglobin Sodium 131 L Potassium Chloride 95.5 L Carbon Dioxide BUN 20 H Creatinine 0.3 L Glucose 288 H POC Glucose Hemoglobin A1c Ferritin AST ALT Alkaline Phosphatase Lactate Dehydrogenase C-Reactive Protein Total Protein 6.0 L Albumin 3.1 L Arterial Blood Glucose Coronavirus (PCR) 05/02/21 05/02/21 05/02/21 07:53 11:45 15:25 WBC MCH MCHC RDW Lymph % (Auto) Lymph # (Auto) Baso # (Auto) Seg Neutrophils % Seg Neuts % (Manual) Lymphocytes % (Manual) Seg Neutrophils # Seg Neutrophils # Man Lymphocytes # (Manual) D-Dimer ABG pH POC ABG pO2 ABG pO2 ABG HCO3 ABG O2 Saturation ABG Base Excess ABG Oxyhemoglobin ABG Sodium ABG Chloride ABG Glucose Oxyhemoglobin Carboxyhemoglobin Sodium Potassium Chloride Carbon Dioxide BUN Creatinine Glucose POC Glucose 180 H 228 H 275 H Hemoglobin A1c Ferritin AST ALT Alkaline Phosphatase Lactate Dehydrogenase C-Reactive Protein Total Protein Albumin Arterial Blood Glucose Coronavirus (PCR) 05/02/21 05/03/21 05/03/21 22:56 04:30 04:49 WBC MCH MCHC RDW Lymph % (Auto) Lymph # (Auto) Baso # (Auto) Seg Neutrophils % Seg Neuts % (Manual) Lymphocytes % (Manual) Seg Neutrophils # Seg Neutrophils # Man Lymphocytes # (Manual) D-Dimer ABG pH 7.229 L POC ABG pO2 65.3 L ABG pO2 ABG HCO3 ABG O2 Saturation ABG Base Excess ABG Oxyhemoglobin 87.8 L ABG Sodium 133.0 L ABG Chloride 97.0 L ABG Glucose 403 H Oxyhemoglobin Carboxyhemoglobin Sodium 130 L Potassium Chloride 94.9 L Carbon Dioxide BUN 20 H Creatinine 0.5 L D Glucose 359 H POC Glucose 293 H Hemoglobin A1c Ferritin AST 54 H ALT 75 H Alkaline Phosphatase 138 H Lactate Dehydrogenase C-Reactive Protein Total Protein Albumin 3.6 L Arterial Blood Glucose 403 H Coronavirus (PCR) 05/03/21 05/03/21 05/03/21 05:27 11:26 17:57 WBC MCH MCHC RDW Lymph % (Auto) Lymph # (Auto) Baso # (Auto) Seg Neutrophils % Seg Neuts % (Manual) Lymphocytes % (Manual) Seg Neutrophils # Seg Neutrophils # Man Lymphocytes # (Manual) D-Dimer ABG pH POC ABG pO2 ABG pO2 ABG HCO3 ABG O2 Saturation ABG Base Excess ABG Oxyhemoglobin ABG Sodium ABG Chloride ABG Glucose Oxyhemoglobin Carboxyhemoglobin Sodium Potassium Chloride Carbon Dioxide BUN Creatinine Glucose POC Glucose 361 H 297 H 226 H Hemoglobin A1c Ferritin AST ALT Alkaline Phosphatase Lactate Dehydrogenase C-Reactive Protein Total Protein Albumin Arterial Blood Glucose Coronavirus (PCR) 05/03/21 05/04/21 05/04/21 23:12 05:12 07:30 WBC MCH MCHC RDW Lymph % (Auto) Lymph # (Auto) Baso # (Auto) Seg Neutrophils % Seg Neuts % (Manual) Lymphocytes % (Manual) Seg Neutrophils # Seg Neutrophils # Man Lymphocytes # (Manual) D-Dimer ABG pH POC ABG pO2 ABG pO2 ABG HCO3 ABG O2 Saturation ABG Base Excess ABG Oxyhemoglobin ABG Sodium ABG Chloride ABG Glucose Oxyhemoglobin Carboxyhemoglobin Sodium Potassium Chloride Carbon Dioxide BUN Creatinine Glucose POC Glucose 282 H 285 H 254 H Hemoglobin A1c Ferritin AST ALT Alkaline Phosphatase Lactate Dehydrogenase C-Reactive Protein Total Protein Albumin Arterial Blood Glucose Coronavirus (PCR) 05/04/21 05/04/21 05/04/21 08:58 11:45 16:07 WBC MCH MCHC RDW Lymph % (Auto) Lymph # (Auto) Baso # (Auto) Seg Neutrophils % Seg Neuts % (Manual) Lymphocytes % (Manual) Seg Neutrophils # Seg Neutrophils # Man Lymphocytes # (Manual) D-Dimer ABG pH POC ABG pO2 ABG pO2 ABG HCO3 ABG O2 Saturation ABG Base Excess ABG Oxyhemoglobin ABG Sodium ABG Chloride ABG Glucose Oxyhemoglobin Carboxyhemoglobin Sodium 134 L Potassium Chloride Carbon Dioxide BUN 20 H Creatinine 0.3 L Glucose 267 H POC Glucose 244 H 297 H Hemoglobin A1c Ferritin AST ALT Alkaline Phosphatase Lactate Dehydrogenase C-Reactive Protein Total Protein 6.0 L Albumin 3.2 L Arterial Blood Glucose Coronavirus (PCR) 05/04/21 05/05/21 05/05/21 23:32 05:00 05:13 WBC MCH MCHC RDW Lymph % (Auto) Lymph # (Auto) Baso # (Auto) Seg Neutrophils % Seg Neuts % (Manual) Lymphocytes % (Manual) Seg Neutrophils # Seg Neutrophils # Man Lymphocytes # (Manual) D-Dimer ABG pH POC ABG pO2 ABG pO2 ABG HCO3 ABG O2 Saturation ABG Base Excess ABG Oxyhemoglobin ABG Sodium ABG Chloride ABG Glucose Oxyhemoglobin Carboxyhemoglobin Sodium 132 L Potassium Chloride 96.4 L Carbon Dioxide BUN 22 H Creatinine 0.3 L Glucose 228 H POC Glucose 154 H 260 H Hemoglobin A1c Ferritin AST ALT 67 H Alkaline Phosphatase Lactate Dehydrogenase C-Reactive Protein Total Protein 6.1 L Albumin 3.2 L Arterial Blood Glucose Coronavirus (PCR) 05/05/21 05/05/21 05/05/21 11:32 17:49 23:07 WBC MCH MCHC RDW Lymph % (Auto) Lymph # (Auto) Baso # (Auto) Seg Neutrophils % Seg Neuts % (Manual) Lymphocytes % (Manual) Seg Neutrophils # Seg Neutrophils # Man Lymphocytes # (Manual) D-Dimer ABG pH POC ABG pO2 ABG pO2 ABG HCO3 ABG O2 Saturation ABG Base Excess ABG Oxyhemoglobin ABG Sodium ABG Chloride ABG Glucose Oxyhemoglobin Carboxyhemoglobin Sodium Potassium Chloride Carbon Dioxide BUN Creatinine Glucose POC Glucose 279 H 308 H 213 H Hemoglobin A1c Ferritin AST ALT Alkaline Phosphatase Lactate Dehydrogenase C-Reactive Protein Total Protein Albumin Arterial Blood Glucose Coronavirus (PCR) 05/06/21 05/06/21 05/06/21 05:00 05:00 05:20 WBC MCH MCHC RDW 16.8 H Lymph % (Auto) Lymph # (Auto) Baso # (Auto) Seg Neutrophils % Seg Neuts % (Manual) 99.0 H Lymphocytes % (Manual) Seg Neutrophils # Seg Neutrophils # Man 10.9 H Lymphocytes # (Manual) 0.0 L D-Dimer ABG pH POC ABG pO2 ABG pO2 ABG HCO3 ABG O2 Saturation ABG Base Excess ABG Oxyhemoglobin ABG Sodium ABG Chloride ABG Glucose Oxyhemoglobin Carboxyhemoglobin Sodium 133 L Potassium Chloride Carbon Dioxide BUN 21 H Creatinine 0.3 L Glucose 259 H POC Glucose 308 H Hemoglobin A1c Ferritin AST ALT Alkaline Phosphatase Lactate Dehydrogenase C-Reactive Protein Total Protein Albumin 3.2 L Arterial Blood Glucose Coronavirus (PCR) 05/06/21 05/06/21 05/06/21 11:24 17:54 21:32 WBC MCH MCHC RDW Lymph % (Auto) Lymph # (Auto) Baso # (Auto) Seg Neutrophils % Seg Neuts % (Manual) Lymphocytes % (Manual) Seg Neutrophils # Seg Neutrophils # Man Lymphocytes # (Manual) D-Dimer ABG pH POC ABG pO2 ABG pO2 ABG HCO3 ABG O2 Saturation ABG Base Excess ABG Oxyhemoglobin ABG Sodium ABG Chloride ABG Glucose Oxyhemoglobin Carboxyhemoglobin Sodium Potassium Chloride Carbon Dioxide BUN Creatinine Glucose POC Glucose 262 H 124 H 246 H Hemoglobin A1c Ferritin AST ALT Alkaline Phosphatase Lactate Dehydrogenase C-Reactive Protein Total Protein Albumin Arterial Blood Glucose Coronavirus (PCR) 05/06/21 05/07/21 05/07/21 23:10 04:54 04:54 WBC MCH MCHC RDW Lymph % (Auto) Lymph # (Auto) Baso # (Auto) Seg Neutrophils % Seg Neuts % (Manual) Lymphocytes % (Manual) Seg Neutrophils # Seg Neutrophils # Man Lymphocytes # (Manual) D-Dimer 1609.28 H ABG pH POC ABG pO2 ABG pO2 ABG HCO3 ABG O2 Saturation ABG Base Excess ABG Oxyhemoglobin ABG Sodium ABG Chloride ABG Glucose Oxyhemoglobin Carboxyhemoglobin Sodium 136 L Potassium Chloride Carbon Dioxide BUN 23 H Creatinine 0.3 L Glucose 110 H POC Glucose 249 H Hemoglobin A1c Ferritin AST ALT Alkaline Phosphatase Lactate Dehydrogenase C-Reactive Protein Total Protein 6.2 L Albumin 3.0 L Arterial Blood Glucose Coronavirus (PCR) 05/07/21 05/07/21 05/07/21 04:54 04:54 11:41 WBC MCH MCHC RDW Lymph % (Auto) Lymph # (Auto) Baso # (Auto) Seg Neutrophils % Seg Neuts % (Manual) Lymphocytes % (Manual) Seg Neutrophils # Seg Neutrophils # Man Lymphocytes # (Manual) D-Dimer ABG pH POC ABG pO2 ABG pO2 ABG HCO3 ABG O2 Saturation ABG Base Excess ABG Oxyhemoglobin ABG Sodium ABG Chloride ABG Glucose Oxyhemoglobin Carboxyhemoglobin Sodium Potassium Chloride Carbon Dioxide BUN Creatinine Glucose POC Glucose 118 H Hemoglobin A1c Ferritin 296.1 H AST ALT Alkaline Phosphatase Lactate Dehydrogenase 724 H C-Reactive Protein Total Protein Albumin Arterial Blood Glucose Coronavirus (PCR) 05/07/21 05/07/21 05/08/21 16:43 22:34 06:44 WBC MCH MCHC RDW Lymph % (Auto) Lymph # (Auto) Baso # (Auto) Seg Neutrophils % Seg Neuts % (Manual) Lymphocytes % (Manual) Seg Neutrophils # Seg Neutrophils # Man Lymphocytes # (Manual) D-Dimer ABG pH POC ABG pO2 ABG pO2 ABG HCO3 ABG O2 Saturation ABG Base Excess ABG Oxyhemoglobin ABG Sodium ABG Chloride ABG Glucose Oxyhemoglobin Carboxyhemoglobin Sodium Potassium Chloride Carbon Dioxide BUN Creatinine Glucose POC Glucose 159 H 233 H 235 H Hemoglobin A1c Ferritin AST ALT Alkaline Phosphatase Lactate Dehydrogenase C-Reactive Protein Total Protein Albumin Arterial Blood Glucose Coronavirus (PCR) 05/08/21 05/08/21 05/08/21 07:49 11:56 17:13 WBC MCH MCHC RDW Lymph % (Auto) Lymph # (Auto) Baso # (Auto) Seg Neutrophils % Seg Neuts % (Manual) Lymphocytes % (Manual) Seg Neutrophils # Seg Neutrophils # Man Lymphocytes # (Manual) D-Dimer ABG pH POC ABG pO2 ABG pO2 ABG HCO3 ABG O2 Saturation ABG Base Excess ABG Oxyhemoglobin ABG Sodium ABG Chloride ABG Glucose Oxyhemoglobin Carboxyhemoglobin Sodium Potassium Chloride Carbon Dioxide BUN Creatinine Glucose POC Glucose 219 H 184 H 182 H Hemoglobin A1c Ferritin AST ALT Alkaline Phosphatase Lactate Dehydrogenase C-Reactive Protein Total Protein Albumin Arterial Blood Glucose Coronavirus (PCR) 05/08/21 05/09/21 05/09/21 23:35 05:20 05:20 WBC MCH MCHC RDW Lymph % (Auto) Lymph # (Auto) Baso # (Auto) Seg Neutrophils % Seg Neuts % (Manual) Lymphocytes % (Manual) Seg Neutrophils # Seg Neutrophils # Man Lymphocytes # (Manual) D-Dimer 1003.87 H ABG pH POC ABG pO2 ABG pO2 ABG HCO3 ABG O2 Saturation ABG Base Excess ABG Oxyhemoglobin ABG Sodium ABG Chloride ABG Glucose Oxyhemoglobin Carboxyhemoglobin Sodium Potassium Chloride Carbon Dioxide BUN Creatinine Glucose POC Glucose 198 H Hemoglobin A1c Ferritin 378.7 H AST ALT Alkaline Phosphatase Lactate Dehydrogenase C-Reactive Protein Total Protein Albumin Arterial Blood Glucose Coronavirus (PCR) 05/09/21 05/09/21 05/09/21 05:20 06:04 12:53 WBC MCH MCHC RDW Lymph % (Auto) Lymph # (Auto) Baso # (Auto) Seg Neutrophils % Seg Neuts % (Manual) Lymphocytes % (Manual) Seg Neutrophils # Seg Neutrophils # Man Lymphocytes # (Manual) D-Dimer ABG pH POC ABG pO2 ABG pO2 ABG HCO3 ABG O2 Saturation ABG Base Excess ABG Oxyhemoglobin ABG Sodium ABG Chloride ABG Glucose Oxyhemoglobin Carboxyhemoglobin Sodium Potassium Chloride Carbon Dioxide BUN Creatinine Glucose POC Glucose 159 H 180 H Hemoglobin A1c Ferritin AST ALT Alkaline Phosphatase Lactate Dehydrogenase 558 H C-Reactive Protein 2.40 H Total Protein Albumin Arterial Blood Glucose Coronavirus (PCR) 05/09/21 05/09/21 05/10/21 16:43 21:27 10:18 WBC MCH MCHC RDW Lymph % (Auto) Lymph # (Auto) Baso # (Auto) Seg Neutrophils % Seg Neuts % (Manual) Lymphocytes % (Manual) Seg Neutrophils # Seg Neutrophils # Man Lymphocytes # (Manual) D-Dimer ABG pH POC ABG pO2 ABG pO2 ABG HCO3 ABG O2 Saturation ABG Base Excess ABG Oxyhemoglobin ABG Sodium ABG Chloride ABG Glucose Oxyhemoglobin Carboxyhemoglobin Sodium Potassium Chloride Carbon Dioxide BUN Creatinine Glucose POC Glucose 212 H 285 H 261 H Hemoglobin A1c Ferritin AST ALT Alkaline Phosphatase Lactate Dehydrogenase C-Reactive Protein Total Protein Albumin Arterial Blood Glucose Coronavirus (PCR) 05/10/21 05/10/21 05/11/21 17:58 18:02 00:29 WBC MCH MCHC RDW Lymph % (Auto) Lymph # (Auto) Baso # (Auto) Seg Neutrophils % Seg Neuts % (Manual) Lymphocytes % (Manual) Seg Neutrophils # Seg Neutrophils # Man Lymphocytes # (Manual) D-Dimer ABG pH POC ABG pO2 ABG pO2 ABG HCO3 ABG O2 Saturation ABG Base Excess ABG Oxyhemoglobin ABG Sodium ABG Chloride ABG Glucose Oxyhemoglobin Carboxyhemoglobin Sodium Potassium Chloride Carbon Dioxide BUN Creatinine Glucose POC Glucose 213 H 179 H 149 H Hemoglobin A1c Ferritin AST ALT Alkaline Phosphatase Lactate Dehydrogenase C-Reactive Protein Total Protein Albumin Arterial Blood Glucose Coronavirus (PCR) 05/11/21 05/11/21 05/11/21 05:22 11:32 17:00 WBC 14.9 H MCH MCHC RDW 18.9 H Lymph % (Auto) 4.9 L Lymph # (Auto) 0.7 L Baso # (Auto) 0.2 H Seg Neutrophils % Seg Neuts % (Manual) Lymphocytes % (Manual) Seg Neutrophils # 13.3 H Seg Neutrophils # Man Lymphocytes # (Manual) D-Dimer ABG pH POC ABG pO2 ABG pO2 ABG HCO3 ABG O2 Saturation ABG Base Excess ABG Oxyhemoglobin ABG Sodium ABG Chloride ABG Glucose Oxyhemoglobin Carboxyhemoglobin Sodium Potassium Chloride Carbon Dioxide BUN Creatinine Glucose POC Glucose 162 H 179 H Hemoglobin A1c Ferritin AST ALT Alkaline Phosphatase Lactate Dehydrogenase C-Reactive Protein Total Protein Albumin Arterial Blood Glucose Coronavirus (PCR) 05/11/21 05/11/21 05/11/21 17:00 17:33 22:03 WBC MCH MCHC RDW Lymph % (Auto) Lymph # (Auto) Baso # (Auto) Seg Neutrophils % Seg Neuts % (Manual) Lymphocytes % (Manual) Seg Neutrophils # Seg Neutrophils # Man Lymphocytes # (Manual) D-Dimer ABG pH POC ABG pO2 ABG pO2 ABG HCO3 ABG O2 Saturation ABG Base Excess ABG Oxyhemoglobin ABG Sodium ABG Chloride ABG Glucose Oxyhemoglobin Carboxyhemoglobin Sodium 135 L Potassium Chloride 97.3 L Carbon Dioxide BUN 21 H Creatinine 0.3 L Glucose 133 H POC Glucose 140 H 282 H Hemoglobin A1c Ferritin AST ALT 60 H Alkaline Phosphatase Lactate Dehydrogenase C-Reactive Protein Total Protein Albumin 3.1 L Arterial Blood Glucose Coronavirus (PCR) 05/12/21 05/12/21 05/12/21 04:05 04:05 04:05 WBC MCH MCHC RDW 18.4 H Lymph % (Auto) Lymph # (Auto) Baso # (Auto) Seg Neutrophils % Seg Neuts % (Manual) 94.0 H Lymphocytes % (Manual) 4.0 L Seg Neutrophils # Seg Neutrophils # Man Lymphocytes # (Manual) 0.3 L D-Dimer ABG pH POC ABG pO2 ABG pO2 ABG HCO3 ABG O2 Saturation ABG Base Excess ABG Oxyhemoglobin ABG Sodium ABG Chloride ABG Glucose Oxyhemoglobin Carboxyhemoglobin Sodium 136 L Potassium Chloride Carbon Dioxide BUN 18 H Creatinine 0.2 L Glucose 142 H POC Glucose Hemoglobin A1c Ferritin 350.7 H AST ALT Alkaline Phosphatase Lactate Dehydrogenase 546 H C-Reactive Protein Total Protein 6.1 L Albumin 3.0 L Arterial Blood Glucose Coronavirus (PCR) 05/12/21 05/12/21 05/12/21 05:11 11:17 16:27 WBC MCH MCHC RDW Lymph % (Auto) Lymph # (Auto) Baso # (Auto) Seg Neutrophils % Seg Neuts % (Manual) Lymphocytes % (Manual) Seg Neutrophils # Seg Neutrophils # Man Lymphocytes # (Manual) D-Dimer ABG pH POC ABG pO2 ABG pO2 ABG HCO3 ABG O2 Saturation ABG Base Excess ABG Oxyhemoglobin ABG Sodium ABG Chloride ABG Glucose Oxyhemoglobin Carboxyhemoglobin Sodium Potassium Chloride Carbon Dioxide BUN Creatinine Glucose POC Glucose 152 H 190 H 261 H Hemoglobin A1c Ferritin AST ALT Alkaline Phosphatase Lactate Dehydrogenase C-Reactive Protein Total Protein Albumin Arterial Blood Glucose Coronavirus (PCR) 05/12/21 05/13/21 05/13/21 20:55 11:08 21:41 WBC MCH MCHC RDW Lymph % (Auto) Lymph # (Auto) Baso # (Auto) Seg Neutrophils % Seg Neuts % (Manual) Lymphocytes % (Manual) Seg Neutrophils # Seg Neutrophils # Man Lymphocytes # (Manual) D-Dimer ABG pH POC ABG pO2 ABG pO2 ABG HCO3 ABG O2 Saturation ABG Base Excess ABG Oxyhemoglobin ABG Sodium ABG Chloride ABG Glucose Oxyhemoglobin Carboxyhemoglobin Sodium Potassium Chloride Carbon Dioxide BUN Creatinine Glucose POC Glucose 231 H 106 H 174 H Hemoglobin A1c Ferritin AST ALT Alkaline Phosphatase Lactate Dehydrogenase C-Reactive Protein Total Protein Albumin Arterial Blood Glucose Coronavirus (PCR) 05/14/21 05/14/21 05/14/21 00:53 02:23 06:06 WBC MCH MCHC RDW Lymph % (Auto) Lymph # (Auto) Baso # (Auto) Seg Neutrophils % Seg Neuts % (Manual) Lymphocytes % (Manual) Seg Neutrophils # Seg Neutrophils # Man Lymphocytes # (Manual) D-Dimer ABG pH POC ABG pO2 ABG pO2 130.3 H ABG HCO3 30.6 H ABG O2 Saturation ABG Base Excess 4.9 H ABG Oxyhemoglobin ABG Sodium ABG Chloride ABG Glucose Oxyhemoglobin Carboxyhemoglobin Sodium Potassium Chloride Carbon Dioxide BUN Creatinine Glucose POC Glucose 229 H 119 H Hemoglobin A1c Ferritin AST ALT Alkaline Phosphatase Lactate Dehydrogenase C-Reactive Protein Total Protein Albumin Arterial Blood Glucose Coronavirus (PCR) 05/14/21 05/14/21 05/14/21 07:13 07:13 07:13 WBC MCH MCHC RDW Lymph % (Auto) Lymph # (Auto) Baso # (Auto) Seg Neutrophils % Seg Neuts % (Manual) Lymphocytes % (Manual) Seg Neutrophils # Seg Neutrophils # Man Lymphocytes # (Manual) D-Dimer 712.80 H ABG pH POC ABG pO2 ABG pO2 ABG HCO3 ABG O2 Saturation ABG Base Excess ABG Oxyhemoglobin ABG Sodium ABG Chloride ABG Glucose Oxyhemoglobin Carboxyhemoglobin Sodium 133 L Potassium Chloride 95.5 L Carbon Dioxide 32 H BUN Creatinine 0.2 L Glucose 137 H POC Glucose Hemoglobin A1c Ferritin 283.5 H AST ALT 63 H Alkaline Phosphatase Lactate Dehydrogenase 563 H C-Reactive Protein Total Protein 6.1 L Albumin 3.0 L Arterial Blood Glucose Coronavirus (PCR) 05/14/21 05/14/21 05/14/21 12:21 15:33 21:50 WBC MCH MCHC RDW Lymph % (Auto) Lymph # (Auto) Baso # (Auto) Seg Neutrophils % Seg Neuts % (Manual) Lymphocytes % (Manual) Seg Neutrophils # Seg Neutrophils # Man Lymphocytes # (Manual) D-Dimer ABG pH POC ABG pO2 ABG pO2 ABG HCO3 ABG O2 Saturation ABG Base Excess ABG Oxyhemoglobin ABG Sodium ABG Chloride ABG Glucose Oxyhemoglobin Carboxyhemoglobin Sodium Potassium Chloride Carbon Dioxide BUN Creatinine Glucose POC Glucose 143 H 204 H 202 H Hemoglobin A1c Ferritin AST ALT Alkaline Phosphatase Lactate Dehydrogenase C-Reactive Protein Total Protein Albumin Arterial Blood Glucose Coronavirus (PCR) 05/15/21 05/15/21 05/15/21 05:05 11:12 16:39 WBC MCH MCHC RDW Lymph % (Auto) Lymph # (Auto) Baso # (Auto) Seg Neutrophils % Seg Neuts % (Manual) Lymphocytes % (Manual) Seg Neutrophils # Seg Neutrophils # Man Lymphocytes # (Manual) D-Dimer ABG pH POC ABG pO2 ABG pO2 ABG HCO3 ABG O2 Saturation ABG Base Excess ABG Oxyhemoglobin ABG Sodium ABG Chloride ABG Glucose Oxyhemoglobin Carboxyhemoglobin Sodium Potassium Chloride Carbon Dioxide BUN Creatinine Glucose POC Glucose 125 H 201 H 241 H Hemoglobin A1c Ferritin AST ALT Alkaline Phosphatase Lactate Dehydrogenase C-Reactive Protein Total Protein Albumin Arterial Blood Glucose Coronavirus (PCR) 05/15/21 05/16/21 05/16/21 21:31 05:04 10:40 WBC MCH MCHC RDW Lymph % (Auto) Lymph # (Auto) Baso # (Auto) Seg Neutrophils % Seg Neuts % (Manual) Lymphocytes % (Manual) Seg Neutrophils # Seg Neutrophils # Man Lymphocytes # (Manual) D-Dimer ABG pH POC ABG pO2 ABG pO2 ABG HCO3 ABG O2 Saturation ABG Base Excess ABG Oxyhemoglobin ABG Sodium ABG Chloride ABG Glucose Oxyhemoglobin Carboxyhemoglobin Sodium Potassium Chloride Carbon Dioxide BUN Creatinine Glucose POC Glucose 234 H 123 H 231 H Hemoglobin A1c Ferritin AST ALT Alkaline Phosphatase Lactate Dehydrogenase C-Reactive Protein Total Protein Albumin Arterial Blood Glucose Coronavirus (PCR) 05/16/21 05/16/21 05/17/21 18:23 21:29 06:20 WBC MCH MCHC RDW 18.8 H Lymph % (Auto) 10.2 L Lymph # (Auto) 0.8 L Baso # (Auto) Seg Neutrophils % 85.8 H Seg Neuts % (Manual) Lymphocytes % (Manual) Seg Neutrophils # Seg Neutrophils # Man Lymphocytes # (Manual) D-Dimer ABG pH POC ABG pO2 ABG pO2 ABG HCO3 ABG O2 Saturation ABG Base Excess ABG Oxyhemoglobin ABG Sodium ABG Chloride ABG Glucose Oxyhemoglobin Carboxyhemoglobin Sodium Potassium Chloride Carbon Dioxide BUN Creatinine Glucose POC Glucose 266 H 234 H Hemoglobin A1c Ferritin AST ALT Alkaline Phosphatase Lactate Dehydrogenase C-Reactive Protein Total Protein Albumin Arterial Blood Glucose Coronavirus (PCR) 05/17/21 05/17/21 05/17/21 06:20 11:06 16:36 WBC MCH MCHC RDW Lymph % (Auto) Lymph # (Auto) Baso # (Auto) Seg Neutrophils % Seg Neuts % (Manual) Lymphocytes % (Manual) Seg Neutrophils # Seg Neutrophils # Man Lymphocytes # (Manual) D-Dimer ABG pH POC ABG pO2 ABG pO2 ABG HCO3 ABG O2 Saturation ABG Base Excess ABG Oxyhemoglobin ABG Sodium ABG Chloride ABG Glucose Oxyhemoglobin Carboxyhemoglobin Sodium Potassium Chloride Carbon Dioxide 33 H BUN Creatinine 0.2 L Glucose 101 H POC Glucose 209 H 180 H Hemoglobin A1c Ferritin AST ALT Alkaline Phosphatase Lactate Dehydrogenase C-Reactive Protein Total Protein Albumin Arterial Blood Glucose Coronavirus (PCR) 05/17/21 05/18/21 05/18/21 21:06 12:00 15:06 WBC MCH MCHC RDW Lymph % (Auto) Lymph # (Auto) Baso # (Auto) Seg Neutrophils % Seg Neuts % (Manual) Lymphocytes % (Manual) Seg Neutrophils # Seg Neutrophils # Man Lymphocytes # (Manual) D-Dimer 874.02 H ABG pH POC ABG pO2 ABG pO2 ABG HCO3 ABG O2 Saturation ABG Base Excess ABG Oxyhemoglobin ABG Sodium ABG Chloride ABG Glucose Oxyhemoglobin Carboxyhemoglobin Sodium Potassium Chloride Carbon Dioxide BUN Creatinine Glucose POC Glucose 256 H 139 H Hemoglobin A1c Ferritin AST ALT Alkaline Phosphatase Lactate Dehydrogenase C-Reactive Protein Total Protein Albumin Arterial Blood Glucose Coronavirus (PCR) 05/18/21 05/18/21 05/18/21 15:06 15:06 16:08 WBC MCH MCHC RDW Lymph % (Auto) Lymph # (Auto) Baso # (Auto) Seg Neutrophils % Seg Neuts % (Manual) Lymphocytes % (Manual) Seg Neutrophils # Seg Neutrophils # Man Lymphocytes # (Manual) D-Dimer ABG pH POC ABG pO2 ABG pO2 ABG HCO3 ABG O2 Saturation ABG Base Excess ABG Oxyhemoglobin ABG Sodium ABG Chloride ABG Glucose Oxyhemoglobin Carboxyhemoglobin Sodium Potassium Chloride Carbon Dioxide BUN Creatinine Glucose POC Glucose 178 H Hemoglobin A1c Ferritin 289.6 H AST ALT Alkaline Phosphatase Lactate Dehydrogenase 605 H C-Reactive Protein Total Protein Albumin Arterial Blood Glucose Coronavirus (PCR) 05/18/21 05/19/21 05/19/21 21:22 11:57 15:26 WBC MCH MCHC RDW Lymph % (Auto) Lymph # (Auto) Baso # (Auto) Seg Neutrophils % Seg Neuts % (Manual) Lymphocytes % (Manual) Seg Neutrophils # Seg Neutrophils # Man Lymphocytes # (Manual) D-Dimer ABG pH POC ABG pO2 ABG pO2 ABG HCO3 ABG O2 Saturation ABG Base Excess ABG Oxyhemoglobin ABG Sodium ABG Chloride ABG Glucose Oxyhemoglobin Carboxyhemoglobin Sodium Potassium Chloride Carbon Dioxide BUN Creatinine Glucose POC Glucose 241 H 201 H 209 H Hemoglobin A1c Ferritin AST ALT Alkaline Phosphatase Lactate Dehydrogenase C-Reactive Protein Total Protein Albumin Arterial Blood Glucose Coronavirus (PCR) 05/19/21 05/20/21 05/20/21 20:59 07:38 08:01 WBC MCH MCHC RDW 19.7 H Lymph % (Auto) 8.3 L Lymph # (Auto) 0.8 L Baso # (Auto) Seg Neutrophils % 88.6 H Seg Neuts % (Manual) Lymphocytes % (Manual) Seg Neutrophils # 8.4 H Seg Neutrophils # Man Lymphocytes # (Manual) D-Dimer ABG pH POC ABG pO2 ABG pO2 ABG HCO3 ABG O2 Saturation ABG Base Excess ABG Oxyhemoglobin ABG Sodium ABG Chloride ABG Glucose Oxyhemoglobin Carboxyhemoglobin Sodium Potassium Chloride Carbon Dioxide BUN Creatinine Glucose POC Glucose 226 H 130 H Hemoglobin A1c Ferritin AST ALT Alkaline Phosphatase Lactate Dehydrogenase C-Reactive Protein Total Protein Albumin Arterial Blood Glucose Coronavirus (PCR) 05/20/21 05/20/21 05/20/21 08:01 11:00 16:43 WBC MCH MCHC RDW Lymph % (Auto) Lymph # (Auto) Baso # (Auto) Seg Neutrophils % Seg Neuts % (Manual) Lymphocytes % (Manual) Seg Neutrophils # Seg Neutrophils # Man Lymphocytes # (Manual) D-Dimer ABG pH POC ABG pO2 ABG pO2 ABG HCO3 ABG O2 Saturation ABG Base Excess ABG Oxyhemoglobin ABG Sodium ABG Chloride ABG Glucose Oxyhemoglobin Carboxyhemoglobin Sodium Potassium Chloride Carbon Dioxide BUN 18 H Creatinine 0.2 L Glucose 132 H POC Glucose 237 H 240 H Hemoglobin A1c Ferritin AST ALT Alkaline Phosphatase Lactate Dehydrogenase C-Reactive Protein Total Protein Albumin Arterial Blood Glucose Coronavirus (PCR) 05/20/21 05/21/21 05/21/21 21:21 07:35 11:32 WBC MCH MCHC RDW Lymph % (Auto) Lymph # (Auto) Baso # (Auto) Seg Neutrophils % Seg Neuts % (Manual) Lymphocytes % (Manual) Seg Neutrophils # Seg Neutrophils # Man Lymphocytes # (Manual) D-Dimer ABG pH POC ABG pO2 ABG pO2 ABG HCO3 ABG O2 Saturation ABG Base Excess ABG Oxyhemoglobin ABG Sodium ABG Chloride ABG Glucose Oxyhemoglobin Carboxyhemoglobin Sodium Potassium Chloride Carbon Dioxide BUN Creatinine Glucose POC Glucose 241 H 162 H 171 H Hemoglobin A1c Ferritin AST ALT Alkaline Phosphatase Lactate Dehydrogenase C-Reactive Protein Total Protein Albumin Arterial Blood Glucose Coronavirus (PCR) 05/21/21 05/21/21 05/22/21 16:22 20:43 05:14 WBC MCH MCHC RDW Lymph % (Auto) Lymph # (Auto) Baso # (Auto) Seg Neutrophils % Seg Neuts % (Manual) Lymphocytes % (Manual) Seg Neutrophils # Seg Neutrophils # Man Lymphocytes # (Manual) D-Dimer ABG pH POC ABG pO2 ABG pO2 ABG HCO3 ABG O2 Saturation ABG Base Excess ABG Oxyhemoglobin ABG Sodium ABG Chloride ABG Glucose Oxyhemoglobin Carboxyhemoglobin Sodium Potassium Chloride Carbon Dioxide BUN Creatinine Glucose POC Glucose 244 H 299 H 140 H Hemoglobin A1c Ferritin AST ALT Alkaline Phosphatase Lactate Dehydrogenase C-Reactive Protein Total Protein Albumin Arterial Blood Glucose Coronavirus (PCR) 05/22/21 05/22/21 05/22/21 08:45 11:54 16:15 WBC MCH MCHC RDW Lymph % (Auto) Lymph # (Auto) Baso # (Auto) Seg Neutrophils % Seg Neuts % (Manual) Lymphocytes % (Manual) Seg Neutrophils # Seg Neutrophils # Man Lymphocytes # (Manual) D-Dimer ABG pH POC ABG pO2 ABG pO2 ABG HCO3 ABG O2 Saturation ABG Base Excess ABG Oxyhemoglobin ABG Sodium ABG Chloride ABG Glucose Oxyhemoglobin Carboxyhemoglobin Sodium Potassium Chloride Carbon Dioxide BUN Creatinine Glucose POC Glucose 133 H 265 H 221 H Hemoglobin A1c Ferritin AST ALT Alkaline Phosphatase Lactate Dehydrogenase C-Reactive Protein Total Protein Albumin Arterial Blood Glucose Coronavirus (PCR) 05/22/21 05/23/21 05/23/21 21:43 08:20 09:50 WBC MCH MCHC RDW Lymph % (Auto) Lymph # (Auto) Baso # (Auto) Seg Neutrophils % Seg Neuts % (Manual) Lymphocytes % (Manual) Seg Neutrophils # Seg Neutrophils # Man Lymphocytes # (Manual) D-Dimer 910.38 H ABG pH POC ABG pO2 ABG pO2 ABG HCO3 ABG O2 Saturation ABG Base Excess ABG Oxyhemoglobin ABG Sodium ABG Chloride ABG Glucose Oxyhemoglobin Carboxyhemoglobin Sodium Potassium Chloride Carbon Dioxide BUN Creatinine Glucose POC Glucose 262 H 140 H Hemoglobin A1c Ferritin AST ALT Alkaline Phosphatase Lactate Dehydrogenase C-Reactive Protein Total Protein Albumin Arterial Blood Glucose Coronavirus (PCR) 05/23/21 05/23/21 05/23/21 09:50 09:50 10:52 WBC MCH MCHC RDW Lymph % (Auto) Lymph # (Auto) Baso # (Auto) Seg Neutrophils % Seg Neuts % (Manual) Lymphocytes % (Manual) Seg Neutrophils # Seg Neutrophils # Man Lymphocytes # (Manual) D-Dimer ABG pH POC ABG pO2 ABG pO2 ABG HCO3 ABG O2 Saturation ABG Base Excess ABG Oxyhemoglobin ABG Sodium ABG Chloride ABG Glucose Oxyhemoglobin Carboxyhemoglobin Sodium Potassium Chloride Carbon Dioxide BUN Creatinine Glucose POC Glucose 241 H Hemoglobin A1c Ferritin 244.9 H AST ALT Alkaline Phosphatase Lactate Dehydrogenase 584 H C-Reactive Protein Total Protein Albumin Arterial Blood Glucose Coronavirus (PCR) 05/23/21 05/23/21 05/24/21 17:24 21:52 07:44 WBC MCH MCHC RDW Lymph % (Auto) Lymph # (Auto) Baso # (Auto) Seg Neutrophils % Seg Neuts % (Manual) Lymphocytes % (Manual) Seg Neutrophils # Seg Neutrophils # Man Lymphocytes # (Manual) D-Dimer ABG pH POC ABG pO2 ABG pO2 ABG HCO3 ABG O2 Saturation ABG Base Excess ABG Oxyhemoglobin ABG Sodium ABG Chloride ABG Glucose Oxyhemoglobin Carboxyhemoglobin Sodium Potassium Chloride Carbon Dioxide BUN Creatinine Glucose POC Glucose 197 H 289 H 161 H Hemoglobin A1c Ferritin AST ALT Alkaline Phosphatase Lactate Dehydrogenase C-Reactive Protein Total Protein Albumin Arterial Blood Glucose Coronavirus (PCR) 05/24/21 05/24/21 05/24/21 11:17 17:51 21:26 WBC MCH MCHC RDW Lymph % (Auto) Lymph # (Auto) Baso # (Auto) Seg Neutrophils % Seg Neuts % (Manual) Lymphocytes % (Manual) Seg Neutrophils # Seg Neutrophils # Man Lymphocytes # (Manual) D-Dimer ABG pH POC ABG pO2 ABG pO2 ABG HCO3 ABG O2 Saturation ABG Base Excess ABG Oxyhemoglobin ABG Sodium ABG Chloride ABG Glucose Oxyhemoglobin Carboxyhemoglobin Sodium Potassium Chloride Carbon Dioxide BUN Creatinine Glucose POC Glucose 308 H 175 H 198 H Hemoglobin A1c Ferritin AST ALT Alkaline Phosphatase Lactate Dehydrogenase C-Reactive Protein Total Protein Albumin Arterial Blood Glucose Coronavirus (PCR) 05/25/21 05/25/21 05/25/21 08:14 11:13 17:13 WBC MCH MCHC RDW Lymph % (Auto) Lymph # (Auto) Baso # (Auto) Seg Neutrophils % Seg Neuts % (Manual) Lymphocytes % (Manual) Seg Neutrophils # Seg Neutrophils # Man Lymphocytes # (Manual) D-Dimer ABG pH POC ABG pO2 ABG pO2 ABG HCO3 ABG O2 Saturation ABG Base Excess ABG Oxyhemoglobin ABG Sodium ABG Chloride ABG Glucose Oxyhemoglobin Carboxyhemoglobin Sodium Potassium Chloride Carbon Dioxide BUN Creatinine Glucose POC Glucose 203 H 339 H 235 H Hemoglobin A1c Ferritin AST ALT Alkaline Phosphatase Lactate Dehydrogenase C-Reactive Protein Total Protein Albumin Arterial Blood Glucose Coronavirus (PCR) 05/25/21 05/26/21 05/26/21 21:03 07:33 11:19 WBC MCH MCHC RDW Lymph % (Auto) Lymph # (Auto) Baso # (Auto) Seg Neutrophils % Seg Neuts % (Manual) Lymphocytes % (Manual) Seg Neutrophils # Seg Neutrophils # Man Lymphocytes # (Manual) D-Dimer ABG pH POC ABG pO2 ABG pO2 ABG HCO3 ABG O2 Saturation ABG Base Excess ABG Oxyhemoglobin ABG Sodium ABG Chloride ABG Glucose Oxyhemoglobin Carboxyhemoglobin Sodium Potassium Chloride Carbon Dioxide BUN Creatinine Glucose POC Glucose 263 H 156 H 288 H Hemoglobin A1c Ferritin AST ALT Alkaline Phosphatase Lactate Dehydrogenase C-Reactive Protein Total Protein Albumin Arterial Blood Glucose Coronavirus (PCR) 05/26/21 05/26/21 05/27/21 16:26 20:55 07:38 WBC MCH MCHC RDW Lymph % (Auto) Lymph # (Auto) Baso # (Auto) Seg Neutrophils % Seg Neuts % (Manual) Lymphocytes % (Manual) Seg Neutrophils # Seg Neutrophils # Man Lymphocytes # (Manual) D-Dimer ABG pH POC ABG pO2 ABG pO2 ABG HCO3 ABG O2 Saturation ABG Base Excess ABG Oxyhemoglobin ABG Sodium ABG Chloride ABG Glucose Oxyhemoglobin Carboxyhemoglobin Sodium Potassium Chloride Carbon Dioxide BUN Creatinine Glucose POC Glucose 286 H 293 H 115 H Hemoglobin A1c Ferritin AST ALT Alkaline Phosphatase Lactate Dehydrogenase C-Reactive Protein Total Protein Albumin Arterial Blood Glucose Coronavirus (PCR) 05/27/21 05/27/21 05/27/21 11:46 15:58 21:02 WBC MCH MCHC RDW Lymph % (Auto) Lymph # (Auto) Baso # (Auto) Seg Neutrophils % Seg Neuts % (Manual) Lymphocytes % (Manual) Seg Neutrophils # Seg Neutrophils # Man Lymphocytes # (Manual) D-Dimer ABG pH POC ABG pO2 ABG pO2 ABG HCO3 ABG O2 Saturation ABG Base Excess ABG Oxyhemoglobin ABG Sodium ABG Chloride ABG Glucose Oxyhemoglobin Carboxyhemoglobin Sodium Potassium Chloride Carbon Dioxide BUN Creatinine Glucose POC Glucose 260 H 318 H 246 H Hemoglobin A1c Ferritin AST ALT Alkaline Phosphatase Lactate Dehydrogenase C-Reactive Protein Total Protein Albumin Arterial Blood Glucose Coronavirus (PCR) 05/28/21 05/28/21 05/28/21 07:34 11:31 16:36 WBC MCH MCHC RDW Lymph % (Auto) Lymph # (Auto) Baso # (Auto) Seg Neutrophils % Seg Neuts % (Manual) Lymphocytes % (Manual) Seg Neutrophils # Seg Neutrophils # Man Lymphocytes # (Manual) D-Dimer ABG pH POC ABG pO2 ABG pO2 ABG HCO3 ABG O2 Saturation ABG Base Excess ABG Oxyhemoglobin ABG Sodium ABG Chloride ABG Glucose Oxyhemoglobin Carboxyhemoglobin Sodium Potassium Chloride Carbon Dioxide BUN Creatinine Glucose POC Glucose 185 H 297 H 183 H Hemoglobin A1c Ferritin AST ALT Alkaline Phosphatase Lactate Dehydrogenase C-Reactive Protein Total Protein Albumin Arterial Blood Glucose Coronavirus (PCR) 05/28/21 05/29/21 05/29/21 21:19 07:34 11:19 WBC MCH MCHC RDW Lymph % (Auto) Lymph # (Auto) Baso # (Auto) Seg Neutrophils % Seg Neuts % (Manual) Lymphocytes % (Manual) Seg Neutrophils # Seg Neutrophils # Man Lymphocytes # (Manual) D-Dimer ABG pH POC ABG pO2 ABG pO2 ABG HCO3 ABG O2 Saturation ABG Base Excess ABG Oxyhemoglobin ABG Sodium ABG Chloride ABG Glucose Oxyhemoglobin Carboxyhemoglobin Sodium Potassium Chloride Carbon Dioxide BUN Creatinine Glucose POC Glucose 274 H 139 H 293 H Hemoglobin A1c Ferritin AST ALT Alkaline Phosphatase Lactate Dehydrogenase C-Reactive Protein Total Protein Albumin Arterial Blood Glucose Coronavirus (PCR) 05/29/21 05/29/21 05/30/21 16:36 22:44 05:55 WBC MCH MCHC RDW 21.3 H Lymph % (Auto) 8.0 L Lymph # (Auto) 0.6 L Baso # (Auto) Seg Neutrophils % 88.6 H Seg Neuts % (Manual) Lymphocytes % (Manual) Seg Neutrophils # Seg Neutrophils # Man Lymphocytes # (Manual) D-Dimer ABG pH POC ABG pO2 ABG pO2 ABG HCO3 ABG O2 Saturation ABG Base Excess ABG Oxyhemoglobin ABG Sodium ABG Chloride ABG Glucose Oxyhemoglobin Carboxyhemoglobin Sodium Potassium Chloride Carbon Dioxide BUN Creatinine Glucose POC Glucose 299 H 160 H Hemoglobin A1c Ferritin AST ALT Alkaline Phosphatase Lactate Dehydrogenase C-Reactive Protein Total Protein Albumin Arterial Blood Glucose Coronavirus (PCR) 05/30/21 05/30/21 05/30/21 05:55 08:04 11:13 WBC MCH MCHC RDW Lymph % (Auto) Lymph # (Auto) Baso # (Auto) Seg Neutrophils % Seg Neuts % (Manual) Lymphocytes % (Manual) Seg Neutrophils # Seg Neutrophils # Man Lymphocytes # (Manual) D-Dimer ABG pH POC ABG pO2 ABG pO2 ABG HCO3 ABG O2 Saturation ABG Base Excess ABG Oxyhemoglobin ABG Sodium ABG Chloride ABG Glucose Oxyhemoglobin Carboxyhemoglobin Sodium Potassium Chloride Carbon Dioxide BUN 19 H Creatinine 0.2 L Glucose 209 H POC Glucose 157 H 275 H Hemoglobin A1c Ferritin AST ALT Alkaline Phosphatase Lactate Dehydrogenase C-Reactive Protein Total Protein Albumin Arterial Blood Glucose Coronavirus (PCR) 05/30/21 05/30/21 05/31/21 17:08 22:12 07:36 WBC MCH MCHC RDW Lymph % (Auto) Lymph # (Auto) Baso # (Auto) Seg Neutrophils % Seg Neuts % (Manual) Lymphocytes % (Manual) Seg Neutrophils # Seg Neutrophils # Man Lymphocytes # (Manual) D-Dimer ABG pH POC ABG pO2 ABG pO2 ABG HCO3 ABG O2 Saturation ABG Base Excess ABG Oxyhemoglobin ABG Sodium ABG Chloride ABG Glucose Oxyhemoglobin Carboxyhemoglobin Sodium Potassium Chloride Carbon Dioxide BUN Creatinine Glucose POC Glucose 154 H 275 H 138 H Hemoglobin A1c Ferritin AST ALT Alkaline Phosphatase Lactate Dehydrogenase C-Reactive Protein Total Protein Albumin Arterial Blood Glucose Coronavirus (PCR) 05/31/21 05/31/21 05/31/21 11:17 16:55 21:25 WBC MCH MCHC RDW Lymph % (Auto) Lymph # (Auto) Baso # (Auto) Seg Neutrophils % Seg Neuts % (Manual) Lymphocytes % (Manual) Seg Neutrophils # Seg Neutrophils # Man Lymphocytes # (Manual) D-Dimer ABG pH POC ABG pO2 ABG pO2 ABG HCO3 ABG O2 Saturation ABG Base Excess ABG Oxyhemoglobin ABG Sodium ABG Chloride ABG Glucose Oxyhemoglobin Carboxyhemoglobin Sodium Potassium Chloride Carbon Dioxide BUN Creatinine Glucose POC Glucose 258 H 215 H 318 H Hemoglobin A1c Ferritin AST ALT Alkaline Phosphatase Lactate Dehydrogenase C-Reactive Protein Total Protein Albumin Arterial Blood Glucose Coronavirus (PCR) 06/01/21 06/01/21 06/01/21 07:23 11:38 16:52 WBC MCH MCHC RDW Lymph % (Auto) Lymph # (Auto) Baso # (Auto) Seg Neutrophils % Seg Neuts % (Manual) Lymphocytes % (Manual) Seg Neutrophils # Seg Neutrophils # Man Lymphocytes # (Manual) D-Dimer ABG pH POC ABG pO2 ABG pO2 ABG HCO3 ABG O2 Saturation ABG Base Excess ABG Oxyhemoglobin ABG Sodium ABG Chloride ABG Glucose Oxyhemoglobin Carboxyhemoglobin Sodium Potassium Chloride Carbon Dioxide BUN Creatinine Glucose POC Glucose 157 H 259 H 150 H Hemoglobin A1c Ferritin AST ALT Alkaline Phosphatase Lactate Dehydrogenase C-Reactive Protein Total Protein Albumin Arterial Blood Glucose Coronavirus (PCR) 06/01/21 06/02/21 06/02/21 23:16 05:34 05:34 WBC MCH MCHC RDW 21.3 H Lymph % (Auto) 9.6 L Lymph # (Auto) 0.6 L Baso # (Auto) Seg Neutrophils % 86.2 H Seg Neuts % (Manual) Lymphocytes % (Manual) Seg Neutrophils # Seg Neutrophils # Man Lymphocytes # (Manual) D-Dimer ABG pH POC ABG pO2 ABG pO2 ABG HCO3 ABG O2 Saturation ABG Base Excess ABG Oxyhemoglobin ABG Sodium ABG Chloride ABG Glucose Oxyhemoglobin Carboxyhemoglobin Sodium 136 L Potassium Chloride Carbon Dioxide BUN Creatinine 0.2 L Glucose 186 H POC Glucose 247 H Hemoglobin A1c Ferritin AST ALT 69 H Alkaline Phosphatase Lactate Dehydrogenase C-Reactive Protein Total Protein 6.1 L Albumin 3.2 L Arterial Blood Glucose Coronavirus (PCR) 06/02/21 06/02/21 06/02/21 11:25 18:23 21:32 WBC MCH MCHC RDW Lymph % (Auto) Lymph # (Auto) Baso # (Auto) Seg Neutrophils % Seg Neuts % (Manual) Lymphocytes % (Manual) Seg Neutrophils # Seg Neutrophils # Man Lymphocytes # (Manual) D-Dimer ABG pH POC ABG pO2 ABG pO2 ABG HCO3 ABG O2 Saturation ABG Base Excess ABG Oxyhemoglobin ABG Sodium ABG Chloride ABG Glucose Oxyhemoglobin Carboxyhemoglobin Sodium Potassium Chloride Carbon Dioxide BUN Creatinine Glucose POC Glucose 157 H 299 H 246 H Hemoglobin A1c Ferritin AST ALT Alkaline Phosphatase Lactate Dehydrogenase C-Reactive Protein Total Protein Albumin Arterial Blood Glucose Coronavirus (PCR) 06/03/21 06/03/21 06/03/21 08:12 12:21 17:31 WBC MCH MCHC RDW Lymph % (Auto) Lymph # (Auto) Baso # (Auto) Seg Neutrophils % Seg Neuts % (Manual) Lymphocytes % (Manual) Seg Neutrophils # Seg Neutrophils # Man Lymphocytes # (Manual) D-Dimer ABG pH POC ABG pO2 ABG pO2 ABG HCO3 ABG O2 Saturation ABG Base Excess ABG Oxyhemoglobin ABG Sodium ABG Chloride ABG Glucose Oxyhemoglobin Carboxyhemoglobin Sodium Potassium Chloride Carbon Dioxide BUN Creatinine Glucose POC Glucose 153 H 302 H 252 H Hemoglobin A1c Ferritin AST ALT Alkaline Phosphatase Lactate Dehydrogenase C-Reactive Protein Total Protein Albumin Arterial Blood Glucose Coronavirus (PCR) 06/03/21 06/04/21 06/04/21 22:08 11:12 16:01 WBC MCH MCHC RDW Lymph % (Auto) Lymph # (Auto) Baso # (Auto) Seg Neutrophils % Seg Neuts % (Manual) Lymphocytes % (Manual) Seg Neutrophils # Seg Neutrophils # Man Lymphocytes # (Manual) D-Dimer ABG pH POC ABG pO2 ABG pO2 ABG HCO3 ABG O2 Saturation ABG Base Excess ABG Oxyhemoglobin ABG Sodium ABG Chloride ABG Glucose Oxyhemoglobin Carboxyhemoglobin Sodium Potassium Chloride Carbon Dioxide BUN Creatinine Glucose POC Glucose 224 H 259 H 238 H Hemoglobin A1c Ferritin AST ALT Alkaline Phosphatase Lactate Dehydrogenase C-Reactive Protein Total Protein Albumin Arterial Blood Glucose Coronavirus (PCR) 06/04/21 06/05/21 06/05/21 21:26 05:26 05:26 WBC MCH MCHC RDW Lymph % (Auto) Lymph # (Auto) Baso # (Auto) Seg Neutrophils % Seg Neuts % (Manual) Lymphocytes % (Manual) Seg Neutrophils # Seg Neutrophils # Man Lymphocytes # (Manual) D-Dimer 488.49 H ABG pH POC ABG pO2 ABG pO2 ABG HCO3 ABG O2 Saturation ABG Base Excess ABG Oxyhemoglobin ABG Sodium ABG Chloride ABG Glucose Oxyhemoglobin Carboxyhemoglobin Sodium Potassium Chloride Carbon Dioxide BUN Creatinine 0.2 L Glucose 198 H POC Glucose 257 H Hemoglobin A1c Ferritin AST ALT Alkaline Phosphatase Lactate Dehydrogenase 475 H C-Reactive Protein Total Protein Albumin Arterial Blood Glucose Coronavirus (PCR) 06/05/21 06/05/21 06/05/21 07:20 08:30 11:00 WBC MCH MCHC RDW Lymph % (Auto) Lymph # (Auto) Baso # (Auto) Seg Neutrophils % Seg Neuts % (Manual) Lymphocytes % (Manual) Seg Neutrophils # Seg Neutrophils # Man Lymphocytes # (Manual) D-Dimer ABG pH POC ABG pO2 ABG pO2 ABG HCO3 ABG O2 Saturation ABG Base Excess ABG Oxyhemoglobin ABG Sodium ABG Chloride ABG Glucose Oxyhemoglobin Carboxyhemoglobin Sodium Potassium Chloride Carbon Dioxide BUN Creatinine Glucose POC Glucose 146 H 246 H Hemoglobin A1c Ferritin AST ALT Alkaline Phosphatase Lactate Dehydrogenase C-Reactive Protein Total Protein Albumin Arterial Blood Glucose Coronavirus (PCR) Positive A 06/05/21 06/05/21 06/06/21 16:50 22:30 07:57 WBC MCH MCHC RDW Lymph % (Auto) Lymph # (Auto) Baso # (Auto) Seg Neutrophils % Seg Neuts % (Manual) Lymphocytes % (Manual) Seg Neutrophils # Seg Neutrophils # Man Lymphocytes # (Manual) D-Dimer ABG pH POC ABG pO2 ABG pO2 ABG HCO3 ABG O2 Saturation ABG Base Excess ABG Oxyhemoglobin ABG Sodium ABG Chloride ABG Glucose Oxyhemoglobin Carboxyhemoglobin Sodium Potassium Chloride Carbon Dioxide BUN Creatinine Glucose POC Glucose 240 H 174 H 120 H Hemoglobin A1c Ferritin AST ALT Alkaline Phosphatase Lactate Dehydrogenase C-Reactive Protein Total Protein Albumin Arterial Blood Glucose Coronavirus (PCR) 06/06/21 06/06/21 06/06/21 11:14 16:50 21:11 WBC MCH MCHC RDW Lymph % (Auto) Lymph # (Auto) Baso # (Auto) Seg Neutrophils % Seg Neuts % (Manual) Lymphocytes % (Manual) Seg Neutrophils # Seg Neutrophils # Man Lymphocytes # (Manual) D-Dimer ABG pH POC ABG pO2 ABG pO2 ABG HCO3 ABG O2 Saturation ABG Base Excess ABG Oxyhemoglobin ABG Sodium ABG Chloride ABG Glucose Oxyhemoglobin Carboxyhemoglobin Sodium Potassium Chloride Carbon Dioxide BUN Creatinine Glucose POC Glucose 267 H 218 H 124 H Hemoglobin A1c Ferritin AST ALT Alkaline Phosphatase Lactate Dehydrogenase C-Reactive Protein Total Protein Albumin Arterial Blood Glucose Coronavirus (PCR) 06/07/21 06/07/21 06/08/21 11:58 15:59 07:59 WBC MCH MCHC RDW Lymph % (Auto) Lymph # (Auto) Baso # (Auto) Seg Neutrophils % Seg Neuts % (Manual) Lymphocytes % (Manual) Seg Neutrophils # Seg Neutrophils # Man Lymphocytes # (Manual) D-Dimer ABG pH POC ABG pO2 ABG pO2 ABG HCO3 ABG O2 Saturation ABG Base Excess ABG Oxyhemoglobin ABG Sodium ABG Chloride ABG Glucose Oxyhemoglobin Carboxyhemoglobin Sodium Potassium Chloride Carbon Dioxide BUN Creatinine Glucose POC Glucose 219 H 208 H 192 H Hemoglobin A1c Ferritin AST ALT Alkaline Phosphatase Lactate Dehydrogenase C-Reactive Protein Total Protein Albumin Arterial Blood Glucose Coronavirus (PCR) 06/08/21 06/08/21 06/09/21 11:26 23:28 07:33 WBC MCH MCHC RDW Lymph % (Auto) Lymph # (Auto) Baso # (Auto) Seg Neutrophils % Seg Neuts % (Manual) Lymphocytes % (Manual) Seg Neutrophils # Seg Neutrophils # Man Lymphocytes # (Manual) D-Dimer ABG pH POC ABG pO2 ABG pO2 ABG HCO3 ABG O2 Saturation ABG Base Excess ABG Oxyhemoglobin ABG Sodium ABG Chloride ABG Glucose Oxyhemoglobin Carboxyhemoglobin Sodium Potassium Chloride Carbon Dioxide BUN Creatinine Glucose POC Glucose 307 H 138 H 145 H Hemoglobin A1c Ferritin AST ALT Alkaline Phosphatase Lactate Dehydrogenase C-Reactive Protein Total Protein Albumin Arterial Blood Glucose Coronavirus (PCR) 06/09/21 06/09/21 06/09/21 11:01 15:47 21:43 WBC MCH MCHC RDW Lymph % (Auto) Lymph # (Auto) Baso # (Auto) Seg Neutrophils % Seg Neuts % (Manual) Lymphocytes % (Manual) Seg Neutrophils # Seg Neutrophils # Man Lymphocytes # (Manual) D-Dimer ABG pH POC ABG pO2 ABG pO2 ABG HCO3 ABG O2 Saturation ABG Base Excess ABG Oxyhemoglobin ABG Sodium ABG Chloride ABG Glucose Oxyhemoglobin Carboxyhemoglobin Sodium Potassium Chloride Carbon Dioxide BUN Creatinine Glucose POC Glucose 266 H 305 H 223 H Hemoglobin A1c Ferritin AST ALT Alkaline Phosphatase Lactate Dehydrogenase C-Reactive Protein Total Protein Albumin Arterial Blood Glucose Coronavirus (PCR) 06/10/21 06/10/21 06/10/21 08:27 12:10 17:45 WBC MCH MCHC RDW Lymph % (Auto) Lymph # (Auto) Baso # (Auto) Seg Neutrophils % Seg Neuts % (Manual) Lymphocytes % (Manual) Seg Neutrophils # Seg Neutrophils # Man Lymphocytes # (Manual) D-Dimer ABG pH POC ABG pO2 ABG pO2 ABG HCO3 ABG O2 Saturation ABG Base Excess ABG Oxyhemoglobin ABG Sodium ABG Chloride ABG Glucose Oxyhemoglobin Carboxyhemoglobin Sodium Potassium Chloride Carbon Dioxide BUN Creatinine Glucose POC Glucose 174 H 306 H 210 H Hemoglobin A1c Ferritin AST ALT Alkaline Phosphatase Lactate Dehydrogenase C-Reactive Protein Total Protein Albumin Arterial Blood Glucose Coronavirus (PCR) 06/10/21 06/11/21 06/11/21 21:45 09:38 09:38 WBC MCH MCHC RDW 20.9 H Lymph % (Auto) Lymph # (Auto) Baso # (Auto) Seg Neutrophils % Seg Neuts % (Manual) Lymphocytes % (Manual) Seg Neutrophils # Seg Neutrophils # Man Lymphocytes # (Manual) D-Dimer ABG pH POC ABG pO2 ABG pO2 ABG HCO3 ABG O2 Saturation ABG Base Excess ABG Oxyhemoglobin ABG Sodium ABG Chloride ABG Glucose Oxyhemoglobin Carboxyhemoglobin Sodium 135 L Potassium Chloride 90.8 L Carbon Dioxide 36 H BUN 29 H Creatinine 0.2 L Glucose 258 H POC Glucose 262 H Hemoglobin A1c Ferritin AST ALT Alkaline Phosphatase Lactate Dehydrogenase C-Reactive Protein Total Protein Albumin Arterial Blood Glucose Coronavirus (PCR) 06/11/21 06/11/21 06/11/21 11:20 15:49 22:57 WBC MCH MCHC RDW Lymph % (Auto) Lymph # (Auto) Baso # (Auto) Seg Neutrophils % Seg Neuts % (Manual) Lymphocytes % (Manual) Seg Neutrophils # Seg Neutrophils # Man Lymphocytes # (Manual) D-Dimer ABG pH POC ABG pO2 ABG pO2 ABG HCO3 ABG O2 Saturation ABG Base Excess ABG Oxyhemoglobin ABG Sodium ABG Chloride ABG Glucose Oxyhemoglobin Carboxyhemoglobin Sodium Potassium Chloride Carbon Dioxide BUN Creatinine Glucose POC Glucose 269 H 206 H 211 H Hemoglobin A1c Ferritin AST ALT Alkaline Phosphatase Lactate Dehydrogenase C-Reactive Protein Total Protein Albumin Arterial Blood Glucose Coronavirus (PCR) 06/12/21 06/12/21 06/12/21 08:07 11:24 18:08 WBC MCH MCHC RDW Lymph % (Auto) Lymph # (Auto) Baso # (Auto) Seg Neutrophils % Seg Neuts % (Manual) Lymphocytes % (Manual) Seg Neutrophils # Seg Neutrophils # Man Lymphocytes # (Manual) D-Dimer ABG pH POC ABG pO2 ABG pO2 ABG HCO3 ABG O2 Saturation ABG Base Excess ABG Oxyhemoglobin ABG Sodium ABG Chloride ABG Glucose Oxyhemoglobin Carboxyhemoglobin Sodium Potassium Chloride Carbon Dioxide BUN Creatinine Glucose POC Glucose 149 H 270 H 166 H Hemoglobin A1c Ferritin AST ALT Alkaline Phosphatase Lactate Dehydrogenase C-Reactive Protein Total Protein Albumin Arterial Blood Glucose Coronavirus (PCR) 06/12/21 06/13/21 06/13/21 20:22 07:50 11:18 WBC MCH MCHC RDW Lymph % (Auto) Lymph # (Auto) Baso # (Auto) Seg Neutrophils % Seg Neuts % (Manual) Lymphocytes % (Manual) Seg Neutrophils # Seg Neutrophils # Man Lymphocytes # (Manual) D-Dimer ABG pH POC ABG pO2 ABG pO2 ABG HCO3 ABG O2 Saturation ABG Base Excess ABG Oxyhemoglobin ABG Sodium ABG Chloride ABG Glucose Oxyhemoglobin Carboxyhemoglobin Sodium Potassium Chloride Carbon Dioxide BUN Creatinine Glucose POC Glucose 155 H 163 H 293 H Hemoglobin A1c Ferritin AST ALT Alkaline Phosphatase Lactate Dehydrogenase C-Reactive Protein Total Protein Albumin Arterial Blood Glucose Coronavirus (PCR) 06/13/21 06/13/21 06/14/21 16:41 21:00 07:41 WBC MCH MCHC RDW Lymph % (Auto) Lymph # (Auto) Baso # (Auto) Seg Neutrophils % Seg Neuts % (Manual) Lymphocytes % (Manual) Seg Neutrophils # Seg Neutrophils # Man Lymphocytes # (Manual) D-Dimer ABG pH POC ABG pO2 ABG pO2 ABG HCO3 ABG O2 Saturation ABG Base Excess ABG Oxyhemoglobin ABG Sodium ABG Chloride ABG Glucose Oxyhemoglobin Carboxyhemoglobin Sodium Potassium Chloride Carbon Dioxide BUN Creatinine Glucose POC Glucose 232 H 183 H 52 L Hemoglobin A1c Ferritin AST ALT Alkaline Phosphatase Lactate Dehydrogenase C-Reactive Protein Total Protein Albumin Arterial Blood Glucose Coronavirus (PCR) 06/14/21 06/14/21 06/14/21 11:44 17:44 21:44 WBC MCH MCHC RDW Lymph % (Auto) Lymph # (Auto) Baso # (Auto) Seg Neutrophils % Seg Neuts % (Manual) Lymphocytes % (Manual) Seg Neutrophils # Seg Neutrophils # Man Lymphocytes # (Manual) D-Dimer ABG pH POC ABG pO2 ABG pO2 ABG HCO3 ABG O2 Saturation ABG Base Excess ABG Oxyhemoglobin ABG Sodium ABG Chloride ABG Glucose Oxyhemoglobin Carboxyhemoglobin Sodium Potassium Chloride Carbon Dioxide BUN Creatinine Glucose POC Glucose 205 H 293 H 288 H Hemoglobin A1c Ferritin AST ALT Alkaline Phosphatase Lactate Dehydrogenase C-Reactive Protein Total Protein Albumin Arterial Blood Glucose Coronavirus (PCR) 06/15/21 06/15/21 06/15/21 08:00 08:00 11:40 WBC MCH 33 H MCHC 35 H RDW 20.3 H Lymph % (Auto) Lymph # (Auto) Baso # (Auto) Seg Neutrophils % Seg Neuts % (Manual) Lymphocytes % (Manual) Seg Neutrophils # Seg Neutrophils # Man Lymphocytes # (Manual) D-Dimer ABG pH POC ABG pO2 ABG pO2 ABG HCO3 ABG O2 Saturation ABG Base Excess ABG Oxyhemoglobin ABG Sodium ABG Chloride ABG Glucose Oxyhemoglobin Carboxyhemoglobin Sodium Potassium 3.2 L Chloride 95.3 L Carbon Dioxide 32 H BUN 23 H Creatinine 0.2 L Glucose 103 H POC Glucose 204 H Hemoglobin A1c Ferritin AST ALT Alkaline Phosphatase Lactate Dehydrogenase C-Reactive Protein Total Protein Albumin Arterial Blood Glucose Coronavirus (PCR) 06/15/21 06/15/21 06/16/21 16:17 22:00 11:43 WBC MCH MCHC RDW Lymph % (Auto) Lymph # (Auto) Baso # (Auto) Seg Neutrophils % Seg Neuts % (Manual) Lymphocytes % (Manual) Seg Neutrophils # Seg Neutrophils # Man Lymphocytes # (Manual) D-Dimer ABG pH POC ABG pO2 ABG pO2 ABG HCO3 ABG O2 Saturation ABG Base Excess ABG Oxyhemoglobin ABG Sodium ABG Chloride ABG Glucose Oxyhemoglobin Carboxyhemoglobin Sodium Potassium Chloride Carbon Dioxide BUN Creatinine Glucose POC Glucose 295 H 233 H 201 H Hemoglobin A1c Ferritin AST ALT Alkaline Phosphatase Lactate Dehydrogenase C-Reactive Protein Total Protein Albumin Arterial Blood Glucose Coronavirus (PCR) 06/16/21 06/16/21 06/17/21 17:21 21:27 07:12 WBC MCH MCHC RDW Lymph % (Auto) Lymph # (Auto) Baso # (Auto) Seg Neutrophils % Seg Neuts % (Manual) Lymphocytes % (Manual) Seg Neutrophils # Seg Neutrophils # Man Lymphocytes # (Manual) D-Dimer ABG pH POC ABG pO2 ABG pO2 ABG HCO3 ABG O2 Saturation ABG Base Excess ABG Oxyhemoglobin ABG Sodium ABG Chloride ABG Glucose Oxyhemoglobin Carboxyhemoglobin Sodium Potassium Chloride Carbon Dioxide BUN Creatinine Glucose POC Glucose 299 H 290 H 67 L Hemoglobin A1c Ferritin AST ALT Alkaline Phosphatase Lactate Dehydrogenase C-Reactive Protein Total Protein Albumin Arterial Blood Glucose Coronavirus (PCR) 06/17/21 06/17/21 06/17/21 11:53 17:02 22:25 WBC MCH MCHC RDW Lymph % (Auto) Lymph # (Auto) Baso # (Auto) Seg Neutrophils % Seg Neuts % (Manual) Lymphocytes % (Manual) Seg Neutrophils # Seg Neutrophils # Man Lymphocytes # (Manual) D-Dimer ABG pH POC ABG pO2 ABG pO2 ABG HCO3 ABG O2 Saturation ABG Base Excess ABG Oxyhemoglobin ABG Sodium ABG Chloride ABG Glucose Oxyhemoglobin Carboxyhemoglobin Sodium Potassium Chloride Carbon Dioxide BUN Creatinine Glucose POC Glucose 199 H 362 H 235 H Hemoglobin A1c Ferritin AST ALT Alkaline Phosphatase Lactate Dehydrogenase C-Reactive Protein Total Protein Albumin Arterial Blood Glucose Coronavirus (PCR) 06/18/21 06/18/21 06/18/21 08:00 11:48 16:40 WBC MCH MCHC RDW Lymph % (Auto) Lymph # (Auto) Baso # (Auto) Seg Neutrophils % Seg Neuts % (Manual) Lymphocytes % (Manual) Seg Neutrophils # Seg Neutrophils # Man Lymphocytes # (Manual) D-Dimer ABG pH POC ABG pO2 ABG pO2 ABG HCO3 ABG O2 Saturation ABG Base Excess ABG Oxyhemoglobin ABG Sodium ABG Chloride ABG Glucose Oxyhemoglobin Carboxyhemoglobin Sodium Potassium Chloride Carbon Dioxide BUN Creatinine Glucose POC Glucose 62 L 211 H 305 H Hemoglobin A1c Ferritin AST ALT Alkaline Phosphatase Lactate Dehydrogenase C-Reactive Protein Total Protein Albumin Arterial Blood Glucose Coronavirus (PCR) 06/18/21 06/19/21 06/19/21 21:26 07:27 11:32 WBC MCH MCHC RDW Lymph % (Auto) Lymph # (Auto) Baso # (Auto) Seg Neutrophils % Seg Neuts % (Manual) Lymphocytes % (Manual) Seg Neutrophils # Seg Neutrophils # Man Lymphocytes # (Manual) D-Dimer ABG pH POC ABG pO2 ABG pO2 ABG HCO3 ABG O2 Saturation ABG Base Excess ABG Oxyhemoglobin ABG Sodium ABG Chloride ABG Glucose Oxyhemoglobin Carboxyhemoglobin Sodium Potassium Chloride Carbon Dioxide BUN Creatinine Glucose POC Glucose 149 H 60 L 208 H Hemoglobin A1c Ferritin AST ALT Alkaline Phosphatase Lactate Dehydrogenase C-Reactive Protein Total Protein Albumin Arterial Blood Glucose Coronavirus (PCR) 06/19/21 06/19/21 06/20/21 16:06 22:28 07:48 WBC MCH MCHC RDW Lymph % (Auto) Lymph # (Auto) Baso # (Auto) Seg Neutrophils % Seg Neuts % (Manual) Lymphocytes % (Manual) Seg Neutrophils # Seg Neutrophils # Man Lymphocytes # (Manual) D-Dimer ABG pH POC ABG pO2 ABG pO2 ABG HCO3 ABG O2 Saturation ABG Base Excess ABG Oxyhemoglobin ABG Sodium ABG Chloride ABG Glucose Oxyhemoglobin Carboxyhemoglobin Sodium Potassium Chloride Carbon Dioxide BUN Creatinine Glucose POC Glucose 266 H 166 H 58 L Hemoglobin A1c Ferritin AST ALT Alkaline Phosphatase Lactate Dehydrogenase C-Reactive Protein Total Protein Albumin Arterial Blood Glucose Coronavirus (PCR) 06/20/21 06/20/21 06/20/21 09:09 11:04 16:01 WBC MCH MCHC RDW Lymph % (Auto) Lymph # (Auto) Baso # (Auto) Seg Neutrophils % Seg Neuts % (Manual) Lymphocytes % (Manual) Seg Neutrophils # Seg Neutrophils # Man Lymphocytes # (Manual) D-Dimer ABG pH POC ABG pO2 ABG pO2 ABG HCO3 ABG O2 Saturation ABG Base Excess ABG Oxyhemoglobin ABG Sodium ABG Chloride ABG Glucose Oxyhemoglobin Carboxyhemoglobin Sodium Potassium Chloride Carbon Dioxide BUN Creatinine Glucose POC Glucose 146 H 225 H 330 H Hemoglobin A1c Ferritin AST ALT Alkaline Phosphatase Lactate Dehydrogenase C-Reactive Protein Total Protein Albumin Arterial Blood Glucose Coronavirus (PCR) 06/20/21 06/21/21 06/21/21 20:46 06:45 06:45 WBC MCH MCHC RDW 20.0 H Lymph % (Auto) Lymph # (Auto) Baso # (Auto) Seg Neutrophils % Seg Neuts % (Manual) Lymphocytes % (Manual) Seg Neutrophils # Seg Neutrophils # Man Lymphocytes # (Manual) D-Dimer ABG pH POC ABG pO2 ABG pO2 ABG HCO3 ABG O2 Saturation ABG Base Excess ABG Oxyhemoglobin ABG Sodium ABG Chloride ABG Glucose Oxyhemoglobin Carboxyhemoglobin Sodium Potassium 2.9 L* Chloride 95.0 L Carbon Dioxide 31 H BUN 23 H Creatinine 0.2 L Glucose 45 L POC Glucose 215 H Hemoglobin A1c Ferritin AST ALT Alkaline Phosphatase Lactate Dehydrogenase C-Reactive Protein Total Protein Albumin Arterial Blood Glucose Coronavirus (PCR) 06/21/21 06/21/21 06/21/21 07:38 09:06 12:40 WBC MCH MCHC RDW Lymph % (Auto) Lymph # (Auto) Baso # (Auto) Seg Neutrophils % Seg Neuts % (Manual) Lymphocytes % (Manual) Seg Neutrophils # Seg Neutrophils # Man Lymphocytes # (Manual) D-Dimer ABG pH POC ABG pO2 ABG pO2 ABG HCO3 ABG O2 Saturation ABG Base Excess ABG Oxyhemoglobin ABG Sodium ABG Chloride ABG Glucose Oxyhemoglobin Carboxyhemoglobin Sodium Potassium Chloride Carbon Dioxide BUN Creatinine Glucose POC Glucose 50 L 196 H 205 H Hemoglobin A1c Ferritin AST ALT Alkaline Phosphatase Lactate Dehydrogenase C-Reactive Protein Total Protein Albumin Arterial Blood Glucose Coronavirus (PCR) 06/21/21 06/22/21 06/22/21 21:36 06:25 07:15 WBC MCH MCHC RDW Lymph % (Auto) Lymph # (Auto) Baso # (Auto) Seg Neutrophils % Seg Neuts % (Manual) Lymphocytes % (Manual) Seg Neutrophils # Seg Neutrophils # Man Lymphocytes # (Manual) D-Dimer ABG pH POC ABG pO2 ABG pO2 ABG HCO3 ABG O2 Saturation ABG Base Excess ABG Oxyhemoglobin ABG Sodium ABG Chloride ABG Glucose Oxyhemoglobin Carboxyhemoglobin Sodium Potassium Chloride Carbon Dioxide BUN 20 H Creatinine 0.2 L Glucose POC Glucose 245 H 66 L Hemoglobin A1c Ferritin AST ALT Alkaline Phosphatase Lactate Dehydrogenase C-Reactive Protein Total Protein Albumin Arterial Blood Glucose Coronavirus (PCR) 06/22/21 06/22/21 06/22/21 11:03 16:07 22:03 WBC MCH MCHC RDW Lymph % (Auto) Lymph # (Auto) Baso # (Auto) Seg Neutrophils % Seg Neuts % (Manual) Lymphocytes % (Manual) Seg Neutrophils # Seg Neutrophils # Man Lymphocytes # (Manual) D-Dimer ABG pH POC ABG pO2 ABG pO2 ABG HCO3 ABG O2 Saturation ABG Base Excess ABG Oxyhemoglobin ABG Sodium ABG Chloride ABG Glucose Oxyhemoglobin Carboxyhemoglobin Sodium Potassium Chloride Carbon Dioxide BUN Creatinine Glucose POC Glucose 184 H 326 H 138 H Hemoglobin A1c Ferritin AST ALT Alkaline Phosphatase Lactate Dehydrogenase C-Reactive Protein Total Protein Albumin Arterial Blood Glucose Coronavirus (PCR) 06/23/21 06/23/21 06/23/21 07:19 10:34 16:35 WBC MCH MCHC RDW Lymph % (Auto) Lymph # (Auto) Baso # (Auto) Seg Neutrophils % Seg Neuts % (Manual) Lymphocytes % (Manual) Seg Neutrophils # Seg Neutrophils # Man Lymphocytes # (Manual) D-Dimer ABG pH POC ABG pO2 ABG pO2 ABG HCO3 ABG O2 Saturation ABG Base Excess ABG Oxyhemoglobin ABG Sodium ABG Chloride ABG Glucose Oxyhemoglobin Carboxyhemoglobin Sodium Potassium Chloride Carbon Dioxide BUN Creatinine Glucose POC Glucose 69 L 218 H 326 H Hemoglobin A1c Ferritin AST ALT Alkaline Phosphatase Lactate Dehydrogenase C-Reactive Protein Total Protein Albumin Arterial Blood Glucose Coronavirus (PCR) 06/23/21 06/24/21 06/24/21 22:44 11:41 16:54 WBC MCH MCHC RDW Lymph % (Auto) Lymph # (Auto) Baso # (Auto) Seg Neutrophils % Seg Neuts % (Manual) Lymphocytes % (Manual) Seg Neutrophils # Seg Neutrophils # Man Lymphocytes # (Manual) D-Dimer ABG pH POC ABG pO2 ABG pO2 ABG HCO3 ABG O2 Saturation ABG Base Excess ABG Oxyhemoglobin ABG Sodium ABG Chloride ABG Glucose Oxyhemoglobin Carboxyhemoglobin Sodium Potassium Chloride Carbon Dioxide BUN Creatinine Glucose POC Glucose 252 H 217 H 357 H Hemoglobin A1c Ferritin AST ALT Alkaline Phosphatase Lactate Dehydrogenase C-Reactive Protein Total Protein Albumin Arterial Blood Glucose Coronavirus (PCR) 06/24/21 06/25/21 06/25/21 20:40 11:51 16:47 WBC MCH MCHC RDW Lymph % (Auto) Lymph # (Auto) Baso # (Auto) Seg Neutrophils % Seg Neuts % (Manual) Lymphocytes % (Manual) Seg Neutrophils # Seg Neutrophils # Man Lymphocytes # (Manual) D-Dimer ABG pH POC ABG pO2 ABG pO2 ABG HCO3 ABG O2 Saturation ABG Base Excess ABG Oxyhemoglobin ABG Sodium ABG Chloride ABG Glucose Oxyhemoglobin Carboxyhemoglobin Sodium Potassium Chloride Carbon Dioxide BUN Creatinine Glucose POC Glucose 239 H 182 H 229 H Hemoglobin A1c Ferritin AST ALT Alkaline Phosphatase Lactate Dehydrogenase C-Reactive Protein Total Protein Albumin Arterial Blood Glucose Coronavirus (PCR) 06/25/21 06/26/21 06/26/21 22:27 07:20 12:19 WBC MCH MCHC RDW Lymph % (Auto) Lymph # (Auto) Baso # (Auto) Seg Neutrophils % Seg Neuts % (Manual) Lymphocytes % (Manual) Seg Neutrophils # Seg Neutrophils # Man Lymphocytes # (Manual) D-Dimer ABG pH POC ABG pO2 ABG pO2 ABG HCO3 ABG O2 Saturation ABG Base Excess ABG Oxyhemoglobin ABG Sodium ABG Chloride ABG Glucose Oxyhemoglobin Carboxyhemoglobin Sodium Potassium 3.2 L D Chloride Carbon Dioxide BUN 20 H Creatinine 0.3 L Glucose POC Glucose 209 H 273 H Hemoglobin A1c Ferritin AST ALT 77 H Alkaline Phosphatase Lactate Dehydrogenase C-Reactive Protein Total Protein Albumin 3.3 L Arterial Blood Glucose Coronavirus (PCR) 06/26/21 06/26/21 06/27/21 16:52 20:55 07:14 WBC MCH MCHC RDW Lymph % (Auto) Lymph # (Auto) Baso # (Auto) Seg Neutrophils % Seg Neuts % (Manual) Lymphocytes % (Manual) Seg Neutrophils # Seg Neutrophils # Man Lymphocytes # (Manual) D-Dimer ABG pH POC ABG pO2 ABG pO2 ABG HCO3 ABG O2 Saturation ABG Base Excess ABG Oxyhemoglobin ABG Sodium ABG Chloride ABG Glucose Oxyhemoglobin Carboxyhemoglobin Sodium Potassium Chloride Carbon Dioxide 31 H BUN 19 H Creatinine 0.2 L Glucose 112 H POC Glucose 326 H 220 H Hemoglobin A1c Ferritin AST ALT Alkaline Phosphatase Lactate Dehydrogenase C-Reactive Protein Total Protein Albumin Arterial Blood Glucose Coronavirus (PCR) 06/27/21 06/27/21 06/27/21 07:29 10:54 15:49 WBC MCH MCHC RDW Lymph % (Auto) Lymph # (Auto) Baso # (Auto) Seg Neutrophils % Seg Neuts % (Manual) Lymphocytes % (Manual) Seg Neutrophils # Seg Neutrophils # Man Lymphocytes # (Manual) D-Dimer ABG pH POC ABG pO2 ABG pO2 ABG HCO3 ABG O2 Saturation ABG Base Excess ABG Oxyhemoglobin ABG Sodium ABG Chloride ABG Glucose Oxyhemoglobin Carboxyhemoglobin Sodium Potassium Chloride Carbon Dioxide BUN Creatinine Glucose POC Glucose 115 H 228 H 240 H Hemoglobin A1c Ferritin AST ALT Alkaline Phosphatase Lactate Dehydrogenase C-Reactive Protein Total Protein Albumin Arterial Blood Glucose Coronavirus (PCR) 06/28/21 06/28/21 06/28/21 05:43 05:43 07:13 WBC MCH 33 H MCHC RDW 19.8 H Lymph % (Auto) Lymph # (Auto) Baso # (Auto) Seg Neutrophils % Seg Neuts % (Manual) Lymphocytes % (Manual) Seg Neutrophils # Seg Neutrophils # Man Lymphocytes # (Manual) D-Dimer ABG pH POC ABG pO2 ABG pO2 ABG HCO3 ABG O2 Saturation ABG Base Excess ABG Oxyhemoglobin ABG Sodium ABG Chloride ABG Glucose Oxyhemoglobin Carboxyhemoglobin Sodium Potassium 3.3 L Chloride Carbon Dioxide BUN 22 H Creatinine 0.2 L Glucose POC Glucose 69 L Hemoglobin A1c Ferritin AST ALT 63 H Alkaline Phosphatase Lactate Dehydrogenase C-Reactive Protein Total Protein Albumin 3.3 L Arterial Blood Glucose Coronavirus (PCR)
[2021-06-28] MEDS: clonazePAM 0.5 MG TAB PO PRN (10:36)
[2021-06-28] MEDS: predniSONE 20 MG TAB PO SCH (10:36)
[2021-06-28] MEDS: FUROSEMIDE 40 MG/4 ML INJ IV SCH (10:36)
[2021-06-28] MEDS: ASCORBIC ACID 500 MG TAB PO SCH (10:36)
[2021-06-28] MEDS: CHOLECALCIFEROL (VIT D3) 1000 UNIT (25 mcg) TAB PO SCH (10:36)
[2021-06-28] MEDS: ZINC SULFATE 220 MG CAP PO SCH ×2 (10:36→21:49)
[2021-06-28] MEDS: DOCUSATE SODIUM 100 MG CAP PO SCH ×2 (10:36→21:50)
[2021-06-28] MEDS: INSULIN GLARGINE 100 UNITS/ML SUB-Q SCH (10:37)
[2021-06-28] MEDS: ACETAMINOPHEN 325 MG TAB PO PRN (10:56)
--- NOTE | 2021-06-28 13:54 | Progress Note ---
Assessment and Plan Assessment and plan: Admit 04/16 from ER 50 YO Female with GERD, Obesity, HLD presents to ED for evaluation. Patient reports "I cannot breathe". Patient states that she has experienced subjective fever, shortness of breath, malaise, body aches, dry cough, and shortness of breath over the past 1 week with progressively worsening symptoms over the same timeframe. EMS was notified and upon arrival the patient was found to be in distress and subsequent transported to [facility] for further care and evaluation of the aforementioned symptoms. The patient was seen and evaluated in the emergency department. All lab and imaging studies reviewed. Patient found to have a pulse oximetry of 86% with exertion on room air which is consistent with acute hypoxemic respiratory failure. Patient with chest x-ray which revealed bilateral pneumonia. Patient admitted to medical floor and initiated him on pneumonia protocol as well as coronavirus protocol. Patient knowledges fever but denies chills, chest pain, palpitation, skin rash, recent ill contacts, or known exposure to COVID-19. Prior admission on 01/21/2017 reviewed. All m edication listed at time of admission has been reconciled. Patient is unvaccinated for coronavirus infection. CXR: Bilateral Pneumonia 04/17: Patient seen and examined, still uncomfortable with Hypoxic respiratory failure and on oxygen, will continue to steroids therapy, start patient on Remdesivir, ID consulted, Pulmonary consult placed. 04/18: Patient seen and examined, she is currently being changed to High flow NC due to worsening HYPOXIA, will transfer to IMCU, Pulmonary and ID following. Will also give a dose of Lasix today. Monitor Inflammatory markers. 04/19: Patient seen and examined still on high flow due to hypoxia. Appears a bit more comfortable today than yesterday. Cough has decreased in frequency. We will continue high dose Dexameathasone to complete 10 days. continue on Remdesivir 200 mg IV q day x 1 followed by 100 mg IV q day x 4 days -Obtain q48-72h inflammatory markers - ferritin, Ddimer, CRP, LDH Will also give lasix daily for the next 3 days and monitor renal function. Family updated. Continue prone positioning as tolerated 04/20: Patient has some desaturation episodes yesterday was placed on BiPAP. Discussed with ICU team for bed availability for patient to be transferred up. Continue prone position as tolerated. 8/8: Patient remains with profound hypoxia secondary to COVID pneumonia. -Continue steroids -Continue remedesir -S/P Actmera 04/22: Patient remains on steroids and remdesivir. ABG shows persistent hypoxia. We will continue current management additional trial of Lasix for the next few days to see if any improvement. Monitor inflammatory markers as needed. Prognosis is guarded remains on high flow 04/23; patient was treated with remdesivir and Actemra. Continue steroid. Patient's prognosis is guarded. 04/24; patient is on steroid. Patient is currently on BiPAP. Prognosis is guarded. Pulmonary is following. Patient was given Lasix and Ativan. 04/25; continue steroid. Patient was on 40 L of high flow oxygen with saturation was 88%. Pulmonary is following. Prognosis is guarded. Patient was given lasix and ativan. 04/26; patient is on BiPAP and Precedex. Prognosis is guarded. 04/27; patient is on BiPAP and Precedex. Patient will finish steroid today and will start on Solu-Medrol tomorrow. Prognosis is guarded. Blood pressure is better today. Hold Lasix. 04/28 patient is on 100 Fio2 via BIPAP. moderately dyspneic, pulmonary note reviewed, lab results reviewed 04/29 no acute events- see systems review above 04/30 no acute events overnight - on airvo today- TPN started -see systems review above 05-01 no acute events overnight- tolerating airvo- see systems review above 05-02 no acute events overnight; tolerating airvo this AM- see systems review above 05/03: Patient remains on full high flow oxygen. No acute events overnight 05/04: Patient remains on BiPAP this morning at 70%. Returning to service Patient initially managed in the ICU and then transfered to the floor 06/25: Patient remains on full oxygen with high flow, encouraged to prone at night time. Spoke to Night nursing staff to ensure assisting the patient Prone. Continue steroid therapy, will discuss with Pulmonary about trying additional lasix. Plan discussed with patient and family. 06/26: Patient already on Lasix daily, Hypokalemia- Replace K. Continue to encourage Proning. Remains on high flow. 06/27: Continue supportive care unfortunately had to go up on her oxygen to 70% FiO2 prognosis remains guarded continue to encourage proning. 10/15: Continue supportive care, Encourage Proning Sepsis secondary to COVID 19 Acute hypoxemic respiratory failure Current Visit: Yes Status: Acute Plan to address problem: Supplemental oxygen, pulse oximetry, nebulizer therapy, proposition while in bed, noninvasive positive pressure ventilation as clinically indicated. Patient remains on high flow supplemental oxygen without much improvement of hypoxia. Will continue to attempt to wean O2 as tolerated. Pneumonia Current Visit: Yes Status: Acute Qualifiers: Aspiration pneumonia type: unspecified Laterality: unspecified laterality Lung location: unspecified part of lung Plan to address problem: Pneumonia protocol: Chest x-ray, CBC, CMP, IV antibiotic therapy, blood culture. Coronavirus infection Current Visit: Yes Status: Acute Plan to address problem: Supportive care, infectious disease service consulted. Continue medical m anagement. Anxiety Right eye- viral conjunctivitis vs subconjunctival hemorrhage continue to monitor treated with ofloxacin ou x 5 days artificial tears has not provided relief Protein gisella malnutrition given inc metabolic demand with resp insufficiency Now off TPN Diabetes mellitus with Hyperglycemia; Noted hypoglycemia will wean down lantus. glargine HS SSI AC/HS Obesity - volume overload; hypona; hypoMg DVT prophylaxis Current Visit: Yes Status: Acute Plan to address problem: SCD to bilateral lower extremities while in bed, prophylactic anticoagulation History Interval history: Patient seen and examined, still with shortness of breath, from last night, has been weaned down to 55%. Hospitalist Physical - Physical exam Narrative exam: General appearance: Absent: mild distress, Continues on High Flow 35L and 55%- PRONE this morning - EENT Eyes: Present: PERRL ENT: hearing intact, clear oral mucosa - Neck Neck: Present: supple, normal ROM - Respiratory Respiratory effort: normal Respiratory: bilateral: Diminished - Cardiovascular Heart Sounds: Present: S1 & S2. Absent: rub, click - Extremities Extremities: pulses symmetrical, No edema Peripheral Pulses: within normal limits - Abdominal General gastrointestinal: Present: soft, non-tender, non-distended, normal bowel sounds Female genitourinary: Present: normal - Integumentary Integumentary: Present: clear, warm, dry - Musculoskeletal Musculoskeletal: gait normal, strength equal bilaterally - Psychiatric Psychiatric: appropriate mood/affect, intact judgment & insight - Neurologic Neurologic: CNII-XII intact, moves all extremities - Constitutional Vitals: Temp Pulse Resp BP Pulse Ox 98.2 F 103 H 17 126/63 94 06/28/21 12:16 06/28/21 12:16 06/28/21 12:16 06/28/21 12:19 06/28/21 12:16 General appearance: Present: mild distress, well-nourished Results - Labs CBC & Chem 7: 06/28/21 05:43 06/28/21 05:43 Labs: Laboratory Last Values WBC 7.4 K/mm3 (4.5-11.0) 06/28/21 05:43 RBC 4.02 M/mm3 (3.65-5.03) 06/28/21 05:43 Hgb 13.0 gm/dl (10.1-14.3) 06/28/21 05:43 Hct 38.2 % (30.3-42.9) 06/28/21 05:43 MCV 95 fl (79-97) 06/28/21 05:43 MCH 33 pg (28-32) H 06/28/21 05:43 MCHC 34 % (30-34) 06/28/21 05:43 RDW 19.8 % (13.2-15.2) H 06/28/21 05:43 Plt Count 203 K/mm3 (140-440) 06/28/21 05:43 Lymph % (Auto) 30.3 % (13.4-35.0) 06/21/21 06:45 [place] % (Auto) 6.5 % (0.0-7.3) 06/21/21 06:45 Eos % (Auto) 0.7 % (0.0-4.3) 06/21/21 06:45 Baso % (Auto) 0.5 % (0.0-1.8) 06/21/21 06:45 Lymph # (Auto) 2.8 K/mm3 (1.2-5.4) 06/21/21 06:45 [place] # (Auto) 0.6 K/mm3 (0.0-0.8) 06/21/21 06:45 Eos # (Auto) 0.1 K/mm3 (0.0-0.4) 06/21/21 06:45 Baso # (Auto) 0.0 K/mm3 (0.0-0.1) 06/21/21 06:45 Add Manual Diff Complete 05/12/21 04:05 Total Counted 100 05/12/21 04:05 Seg Neutrophils % 62.0 % (40.0-70.0) 06/21/21 06:45 Seg Neuts % (Manual) 94.0 % (40.0-70.0) H 05/12/21 04:05 Band Neutrophils % 1.0 % 05/12/21 04:05 Lymphocytes % (Manual) 4.0 % (13.4-35.0) L 05/12/21 04:05 Monocytes % (Manual) 1.0 % (0.0-7.3) 05/12/21 04:05 Nucleated RBC % Not Reportable 05/12/21 04:05 Seg Neutrophils # 5.7 K/mm3 (1.8-7.7) 06/21/21 06:45 Seg Neutrophils # Man 6.4 K/mm3 (1.8-7.7) 05/12/21 04:05 Band Neutrophils # 0.1 K/mm3 05/12/21 04:05 Lymphocytes # (Manual) 0.3 K/mm3 (1.2-5.4) L 05/12/21 04:05 Abs React Lymphs (Man) 0.0 K/mm3 05/12/21 04:05 Monocytes # (Manual) 0.1 K/mm3 (0.0-0.8) 05/12/21 04:05 Eosinophils # (Manual) 0.0 K/mm3 (0.0-0.4) 05/12/21 04:05 Basophils # (Manual) 0.0 K/mm3 (0.0-0.1) 05/12/21 04:05 Metamyelocytes # 0.0 K/mm3 05/12/21 04:05 Myelocytes # 0.0 K/mm3 05/12/21 04:05 Promyelocytes # 0.0 K/mm3 05/12/21 04:05 Blast Cells # 0.0 K/mm3 05/12/21 04:05 WBC Morphology Not Reportable 05/12/21 04:05 Hypersegmented Neuts Not Reportable 05/12/21 04:05 Hyposegmented Neuts Not Reportable 05/12/21 04:05 Hypogranular Neuts Not Reportable 05/12/21 04:05 Smudge Cells Not Reportable 05/12/21 04:05 Toxic Granulation Not Reportable 05/12/21 04:05 Toxic Vacuolation Not Reportable 05/12/21 04:05 Dohle Bodies Not Reportable 05/12/21 04:05 Pelger-Huet Anomaly Not Reportable 05/12/21 04:05 Janelle Rods Not Reportable 05/12/21 04:05 Platelet Estimate Consistent w auto 05/12/21 04:05 Clumped Platelets Not Reportable 05/12/21 04:05 Plt Clumps, EDTA Not Reportable 05/12/21 04:05 Large Platelets Not Reportable 05/12/21 04:05 Giant Platelets Not Reportable 05/12/21 04:05 Platelet Satelliting Not Reportable 05/12/21 04:05 Plt Morphology Comment Not Reportable 05/12/21 04:05 RBC Morphology Normal 05/12/21 04:05 Dimorphic RBCs Not Reportable 05/12/21 04:05 Polychromasia Not Reportable 05/12/21 04:05 Hypochromasia Not Reportable 05/12/21 04:05 Poikilocytosis Not Reportable 05/12/21 04:05 Anisocytosis Not Reportable 05/12/21 04:05 Microcytosis Not Reportable 05/12/21 04:05 Macrocytosis Not Reportable 05/12/21 04:05 Spherocytes Not Reportable 05/12/21 04:05 Pappenheimer Bodies Not Reportable 05/12/21 04:05 Sickle Cells Not Reportable 05/12/21 04:05 Target Cells Not Reportable 05/12/21 04:05 Tear Drop Cells Not Reportable 05/12/21 04:05 Ovalocytes Not Reportable 05/12/21 04:05 Helmet Cells Not Reportable 05/12/21 04:05 Ahuja-[place] Bodies Not Reportable 05/12/21 04:05 [place] Rings Not Reportable 05/12/21 04:05 [place] Cells Not Reportable 05/12/21 04:05 Bite Cells Not Reportable 05/12/21 04:05 Crenated Cell Not Reportable 05/12/21 04:05 Elliptocytes Not Reportable 05/12/21 04:05 Acanthocytes (Spur) Not Reportable 05/12/21 04:05 Rouleaux Not Reportable 05/12/21 04:05 Hemoglobin C Crystals Not Reportable 05/12/21 04:05 Schistocytes Not Reportable 05/12/21 04:05 Malaria parasites Not Reportable 05/12/21 04:05 Justin Bodies Not Reportable 05/12/21 04:05 Hem Pathologist Commnt No 05/12/21 04:05 D-Dimer 488.49 ng/mlDDU (0-234) H 06/05/21 05:26 ABG pH 7.403 pH Units (7.350-7.450) 05/14/21 02:23 POC ABG pCO2 45.4 mmHg (32.0-48.0) 05/03/21 04:49 ABG pCO2 50.2 mm Hg 05/14/21 02:23 POC ABG pO2 65.3 mmHg (83-108) L 05/03/21 04:49 ABG pO2 130.3 mm Hg (80.0-90.0) H 05/14/21 02:23 POC ABG HCO3 18.5 05/03/21 04:49 ABG HCO3 30.6 mmol/L (20.0-26.0) H 05/14/21 02:23 ABG O2 Saturation 98.5 % (95.0-99.0) 05/14/21 02:23 ABG O2 Content 17.9 (0.0-44) 05/14/21 02:23 POC ABG Base Excess -8.9 05/03/21 04:49 ABG Base Excess 4.9 mmol/L (-2.0-3.0) H 05/14/21 02:23 ABG Hemoglobin 13.0 gm/dl (12.0-16.0) 05/14/21 02:23 ABG Oxyhemoglobin 87.8 (94-98) L 05/03/21 04:49 ABG Carboxyhemoglobin 1.4 % (0.0-5.0) 05/14/21 02:23 ABG Methemoglobin 0.6 % (0.0-1.5) 05/14/21 02:23 ABG Sodium 133.0 mmol/L (136.0-145.0) L 05/03/21 04:49 ABG Potassium 3.9 mmol/L (3.40-4.50) 05/03/21 04:49 ABG Chloride 97.0 mmol/L (98-107) L 05/03/21 04:49 ABG Glucose 403 mg/dL (65-95) H 05/03/21 04:49 Oxyhemoglobin 96.5 % (95.0-99.0) 05/14/21 02:23 Carboxyhemoglobin 0.6 (0.5-1.5) 05/03/21 04:49 FiO2 90 % 05/14/21 02:23 FiO2 % 100.0 05/03/21 04:49 Sodium 142 mmol/L (137-145) 06/28/21 05:43 Potassium 3.3 mmol/L (3.6-5.0) L 06/28/21 05:43 Chloride 99.1 mmol/L (98-107) 06/28/21 05:43 Carbon Dioxide 29 mmol/L (22-30) 06/28/21 05:43 Anion Gap 17 mmol/L 06/28/21 05:43 BUN 22 mg/dL (7-17) H 06/28/21 05:43 Creatinine 0.2 mg/dL (0.6-1.2) L 06/28/21 05:43 Estimated GFR > 60 ml/min 06/28/21 05:43 BUN/Creatinine Ratio 110 % 06/28/21 05:43 Glucose 73 mg/dL (65-100) 06/28/21 05:43 POC Glucose 154 mg/dL (70-105) H 06/28/21 12:18 Hemoglobin A1c 8.5 % (4-6) H 04/18/21 07:36 Calcium 9.3 mg/dL (8.4-10.2) 06/28/21 05:43 Phosphorus 3.60 mg/dL (2.5-4.5) 05/06/21 05:00 Magnesium 2.00 mg/dL (1.7-2.3) 05/06/21 05:00 Ferritin 187.7 ng/mL (10.0-200.0) 06/05/21 05:26 Total Bilirubin 0.30 mg/dL (0.1-1.2) 06/28/21 05:43 AST 19 units/L (5-40) 06/28/21 05:43 ALT 63 units/L (7-56) H 06/28/21 05:43 Alkaline Phosphatase 61 units/L (35-129) 06/28/21 05:43 Lactate Dehydrogenase 475 units/L (91-180) H 06/05/21 05:26 C-Reactive Protein 0.10 mg/dL (0.00-1.30) 06/05/21 05:26 Total Protein 6.5 g/dL (6.3-8.2) 06/28/21 05:43 Albumin 3.3 g/dL (3.9-5) L 06/28/21 05:43 Albumin/Globulin Ratio 1.0 % 06/28/21 05:43 Triglycerides < 9 mg/dL (2-149) 05/03/21 04:30 Procalcitonin < 0.05 ng/mL (<0.15) 05/23/21 09:50 Arterial Blood Glucose 403 mg/dL (65-95) H 05/03/21 04:49 Arterial Blood Ionized Calcium 4.9 mg/dL (4.6-5.3) 05/03/21 04:49 Coronavirus (PCR) Positive (Negative) A 06/05/21 08:30 Amos/IV: Voiding Method Bedside Commode Active Medications - Current Medications Current Medications: Generic Name Dose Route Start Last Admin Trade Name Freq PRN Reason Stop Dose Admin Acetaminophen 650 mg 04/16/21 14:00 06/28/21 10:56 Acetaminophen 325 Mg Tab PO 650 mg Q4H PRN Administration Pain MILD(1-3)/Fever >100.5/[place] Albuterol 2.5 mg 04/16/21 13:39 04/21/21 20:39 Albuterol 2.5 Mg/3 Ml Nebu IH 2.5 mg Q4HRT PRN Administration Shortness Of Breath Ascorbic Acid 500 mg 04/24/21 10:00 06/28/21 10:36 Ascorbic Acid 500 Mg Tab PO 500 mg QDAY TUTU Administration Bisacodyl 10 mg 06/10/21 18:00 Bisacodyl 10 Mg Rect Supp AR QDAY PRN Constipation Cholecalciferol 1,000 unit 04/17/21 10:00 06/28/21 10:36 Cholecalciferol (Vit D3) 1000 Unit (25 Mcg) Tab PO 1,000 unit QDAY TUTU Administration Clonazepam 1 mg 05/29/21 08:06 06/28/21 10:36 Clonazepam 0.5 Mg Tab PO 1 mg Q8H PRN Administration Anxiety Dextrose 50 ml 04/18/21 07:30 04/28/21 09:59 Dextrose 50% In Water (25gm) 50 Ml Syringe IV 50 ml Q30MIN PRN Administration Hypoglycemia Protocol Docusate Sodium 100 mg 04/30/21 10:00 06/28/21 10:36 Docusate Sodium 100 Mg Cap PO 100 mg BID TUTU Administration Enoxaparin Sodium 40 mg 05/19/21 22:00 06/27/21 21:32 Enoxaparin 40 Mg/0.4 Ml Inj SUB-Q 40 mg QDAY@2200 TUTU Administration Protocol Furosemide 40 mg 06/07/21 10:00 06/28/21 10:36 Furosemide 40 Mg/4 Ml Inj IV 40 mg QDAY TUTU Administration Insulin Glargine 15 units 06/25/21 10:00 06/28/21 10:37 Insulin Glargine 100 Units/Ml SUB-Q 15 units DAILY TUTU Administration Insulin Human Lispro 0 unit 05/18/21 12:00 06/28/21 13:10 Insulin Lispro 100 Unit/Ml SUB-Q 3 unit ACHS TUTU Administration Protocol Lorazepam 1 mg 05/25/21 14:40 06/11/21 23:55 Lorazepam 2 Mg/Ml Vial IV 1 mg Q6H PRN Administration Agitation Magnesium Hydroxide 30 ml 06/07/21 16:30 06/11/21 11:06 Magnesium Hydroxide (Mom) Oral Liqd Udc PO 30 ml QDAY PRN Administration Constipation Ondansetron HCl 4 mg 04/16/21 14:00 05/30/21 10:07 Ondansetron 4 Mg/2 Ml Inj IV 4 mg Q8H PRN Administration Nausea And Vomiting Prednisone 20 mg 06/26/21 16:00 06/28/21 10:36 Prednisone 20 Mg Tab PO 20 mg QDAY TUTU Administration Senna 17.2 mg 05/02/21 22:00 06/27/21 21:31 Sennosides 8.6 Mg Tab PO 17.2 mg QHS TUTU Administration Sodium Chloride 10 ml 04/16/21 22:00 06/28/21 10:36 Sodium Chloride 0.9% 10 Ml Flush Syringe IV 10 ml BID TUTU Administration Sodium Chloride 10 ml 04/16/21 13:39 05/22/21 15:21 Sodium Chloride 0.9% 10 Ml Flush Syringe IV 10 ml PRN PRN Administration LINE FLUSH Zinc Sulfate 220 mg 04/16/21 22:00 06/28/21 10:36 Zinc Sulfate 220 Mg Cap PO 220 mg BID TUTU Administration Zolpidem Tartrate 10 mg 05/26/21 08:56 06/27/21 22:44 Zolpidem 5 Mg Tab PO 10 mg QHS PRN Administration Insomnia Nutrition/Malnutrition Assess - Dietary Evaluation Nutrition/Malnutrition Findings: Nutrition Notes Start: 04/23/21 07:41 Freq: Status: Active Protocol: Document 06/04/21 11:07 (Rec: 06/04/21 11:07 [id number]) Nutrition Notes Initial or Follow up Brief Note Current Diagnosis Respiratory Failure Other Pertinent Diagnosis oral thrush, COVID-19 pneu Current Diet GI soft Subjective/Other Information Pt continues to eat 75-100% of meals. Nutrition Intervention Revisit per MD consult or patient Sign Off request:
[2021-06-28] MEDS: SENNOSIDES 8.6 MG TAB PO SCH (21:50)
[2021-06-28] MEDS: ENOXAPARIN 40 MG/0.4 ML INJ SUB-Q SCH (21:50)
[2021-06-28] MEDS: ZOLPIDEM 5 MG TAB PO PRN (22:34)
[2021-06-29] MEDS: INSULIN LISPRO 100 UNIT/ML SUB-Q SCH ×4 (08:39→21:29)
[2021-06-29] MEDS: CHOLECALCIFEROL (VIT D3) 1000 UNIT (25 mcg) TAB PO SCH (09:09)
[2021-06-29] MEDS: predniSONE 20 MG TAB PO SCH (09:09)
[2021-06-29] MEDS: FUROSEMIDE 40 MG/4 ML INJ IV SCH (09:09)
[2021-06-29] MEDS: ZINC SULFATE 220 MG CAP PO SCH ×2 (09:09→21:28)
[2021-06-29] MEDS: DOCUSATE SODIUM 100 MG CAP PO SCH ×2 (09:09→21:29)
[2021-06-29] MEDS: INSULIN GLARGINE 100 UNITS/ML SUB-Q SCH (09:09)
[2021-06-29] MEDS: ASCORBIC ACID 500 MG TAB PO SCH (09:09)
--- NOTE | 2021-06-29 11:18 | Progress Note ---
Assessment and Plan Assessment and plan: Admit 04/16 from ER 50 YO Female with GERD, Obesity, HLD presents to ED for evaluation. Patient reports "I cannot breathe". Patient states that she has experienced subjective fever, shortness of breath, malaise, body aches, dry cough, and shortness of breath over the past 1 week with progressively worsening symptoms over the same timeframe. EMS was notified and upon arrival the patient was found to be in distress and subsequent transported to [facility] for further care and evaluation of the aforementioned symptoms. The patient was seen and evaluated in the emergency department. All lab and imaging studies reviewed. Patient found to have a pulse oximetry of 86% with exertion on room air which is consistent with acute hypoxemic respiratory failure. Patient with chest x-ray which revealed bilateral pneumonia. Patient admitted to medical floor and initiated him on pneumonia protocol as well as coronavirus protocol. Patient knowledges fever but denies chills, chest pain, palpitation, skin rash, recent ill contacts, or known exposure to COVID-19. Prior admission on 01/21/2017 reviewed. All m edication listed at time of admission has been reconciled. Patient is unvaccinated for coronavirus infection. CXR: Bilateral Pneumonia 04/17: Patient seen and examined, still uncomfortable with Hypoxic respiratory failure and on oxygen, will continue to steroids therapy, start patient on Remdesivir, ID consulted, Pulmonary consult placed. 04/18: Patient seen and examined, she is currently being changed to High flow NC due to worsening HYPOXIA, will transfer to IMCU, Pulmonary and ID following. Will also give a dose of Lasix today. Monitor Inflammatory markers. 04/19: Patient seen and examined still on high flow due to hypoxia. Appears a bit more comfortable today than yesterday. Cough has decreased in frequency. We will continue high dose Dexameathasone to complete 10 days. continue on Remdesivir 200 mg IV q day x 1 followed by 100 mg IV q day x 4 days -Obtain q48-72h inflammatory markers - ferritin, Ddimer, CRP, LDH Will also give lasix daily for the next 3 days and monitor renal function. Family updated. Continue prone positioning as tolerated 04/20: Patient has some desaturation episodes yesterday was placed on BiPAP. Discussed with ICU team for bed availability for patient to be transferred up. Continue prone position as tolerated. 8/8: Patient remains with profound hypoxia secondary to COVID pneumonia. -Continue steroids -Continue remedesir -S/P Actmera 04/22: Patient remains on steroids and remdesivir. ABG shows persistent hypoxia. We will continue current management additional trial of Lasix for the next few days to see if any improvement. Monitor inflammatory markers as needed. Prognosis is guarded remains on high flow 04/23; patient was treated with remdesivir and Actemra. Continue steroid. Patient's prognosis is guarded. 04/24; patient is on steroid. Patient is currently on BiPAP. Prognosis is guarded. Pulmonary is following. Patient was given Lasix and Ativan. 04/25; continue steroid. Patient was on 40 L of high flow oxygen with saturation was 88%. Pulmonary is following. Prognosis is guarded. Patient was given lasix and ativan. 04/26; patient is on BiPAP and Precedex. Prognosis is guarded. 04/27; patient is on BiPAP and Precedex. Patient will finish steroid today and will start on Solu-Medrol tomorrow. Prognosis is guarded. Blood pressure is better today. Hold Lasix. 04/28 patient is on 100 Fio2 via BIPAP. moderately dyspneic, pulmonary note reviewed, lab results reviewed 04/29 no acute events- see systems review above 04/30 no acute events overnight - on airvo today- TPN started -see systems review above 05-01 no acute events overnight- tolerating airvo- see systems review above 05-02 no acute events overnight; tolerating airvo this AM- see systems review above 05/03: Patient remains on full high flow oxygen. No acute events overnight 05/04: Patient remains on BiPAP this morning at 70%. Returning to service Patient initially managed in the ICU and then transfered to the floor 06/25: Patient remains on full oxygen with high flow, encouraged to prone at night time. Spoke to Night nursing staff to ensure assisting the patient Prone. Continue steroid therapy, will discuss with Pulmonary about trying additional lasix. Plan discussed with patient and family. 06/26: Patient already on Lasix daily, Hypokalemia- Replace K. Continue to encourage Proning. Remains on high flow. 06/27: Continue supportive care unfortunately had to go up on her oxygen to 70% FiO2 prognosis remains guarded continue to encourage proning. 10/15: Continue supportive care, Encourage Proning 06/29: Mild hypokalemia noted yesterday will be replaced as it was not corrected yesterday we will recheck BMP in a.m. Continue IV Lasix. Monitor renal function. Sepsis secondary to COVID 19 Acute hypoxemic respiratory failure Current Visit: Yes Status: Acute Plan to address problem: Supplemental oxygen, pulse oximetry, nebulizer therapy, proposition while in bed, noninvasive positive pressure ventilation as clinically indicated. Patient remains on high flow supplemental oxygen without much improvement of hypoxia. Will continue to attempt to wean O2 as tolerated. Pneumonia Current Visit: Yes Status: Acute Qualifiers: Aspiration pneumonia type: unspecified Laterality: unspecified laterality Lung location: unspecified part of lung Plan to address problem: Pneumonia protocol: Chest x-ray, CBC, CMP, IV antibiotic therapy, blood culture. Coronavirus infection Current Visit: Yes Status: Acute Plan to address problem: Supportive care, infectious disease service consulted. Continue medical management. Anxiety Right eye- viral conjunctivitis vs subconjunctival hemorrhage continue to monitor treated with ofloxacin ou x 5 days artificial tears has not provided relief Protein gisella malnutrition given inc metabolic demand with resp insufficiency Now off TPN Diabetes mellitus with Hyperglycemia; Noted hypoglycemia will wean down lantus. glargine HS SSI AC/HS Obesity - volume overload; hypona; hypoMg DVT prophylaxis Current Visit: Yes Status: Acute Plan to address problem: SCD to bilateral lower extremities while in bed, prophylactic anticoagulation History Interval history: Patient seen and examined, still with shortness of breath, had another episode of desaturation I wonder if fluctuation in oxygen status is due to placement of lead but still visibly short of breath. Hospitalist Physical - Physical exam Narrative exam: General appearance: Absent: mild distress, Continues on High Flow 35L and 55%- - EENT Eyes: Present: PERRL ENT: hearing intact, clear oral mucosa - Neck Neck: Present: supple, normal ROM - Respiratory Respiratory effort: normal Respiratory: bilateral: Diminished - Cardiovascular Heart Sounds: Present: S1 & S2. Absent: rub, click - Extremities Extremities: pulses symmetrical, No edema Peripheral Pulses: within normal limits - Abdominal General gastrointestinal: Present: soft, non-tender, non-distended, normal bowel sounds Female genitourinary: Present: normal - Integumentary Integumentary: Present: clear, warm, dry - Musculoskeletal Musculoskeletal: gait normal, strength equal bilaterally - Psychiatric Psychiatric: appropriate mood/affect, intact judgment & insight - Neurologic Neurologic: CNII-XII intact, moves all extremities - Constitutional Vitals: Temp Pulse Resp BP Pulse Ox 97.6 F 84 20 111/66 94 06/29/21 04:20 06/29/21 04:20 06/29/21 04:20 06/29/21 04:20 06/29/21 08:58 General appearance: Present: mild distress, well-nourished Results - Labs CBC & Chem 7: 06/28/21 05:43 06/28/21 05:43 Labs: Laboratory Last Values WBC 7.4 K/mm3 (4.5-11.0) 06/28/21 05:43 RBC 4.02 M/mm3 (3.65-5.03) 06/28/21 05:43 Hgb 13.0 gm/dl (10.1-14.3) 06/28/21 05:43 Hct 38.2 % (30.3-42.9) 06/28/21 05:43 MCV 95 fl (79-97) 06/28/21 05:43 MCH 33 pg (28-32) H 06/28/21 05:43 MCHC 34 % (30-34) 06/28/21 05:43 RDW 19.8 % (13.2-15.2) H 06/28/21 05:43 Plt Count 203 K/mm3 (140-440) 06/28/21 05:43 Lymph % (Auto) 30.3 % (13.4-35.0) 06/21/21 06:45 Walton % (Auto) 6.5 % (0.0-7.3) 06/21/21 06:45 Eos % (Auto) 0.7 % (0.0-4.3) 06/21/21 06:45 Baso % (Auto) 0.5 % (0.0-1.8) 06/21/21 06:45 Lymph # (Auto) 2.8 K/mm3 (1.2-5.4) 06/21/21 06:45 Walton # (Auto) 0.6 K/mm3 (0.0-0.8) 06/21/21 06:45 Eos # (Auto) 0.1 K/mm3 (0.0-0.4) 06/21/21 06:45 Baso # (Auto) 0.0 K/mm3 (0.0-0.1) 06/21/21 06:45 Add Manual Diff Complete 05/12/21 04:05 Total Counted 100 05/12/21 04:05 Seg Neutrophils % 62.0 % (40.0-70.0) 06/21/21 06:45 Seg Neuts % (Manual) 94.0 % (40.0-70.0) H 05/12/21 04:05 Band Neutrophils % 1.0 % 05/12/21 04:05 Lymphocytes % (Manual) 4.0 % (13.4-35.0) L 05/12/21 04:05 Monocytes % (Manual) 1.0 % (0.0-7.3) 05/12/21 04:05 Nucleated RBC % Not Reportable 05/12/21 04:05 Seg Neutrophils # 5.7 K/mm3 (1.8-7.7) 06/21/21 06:45 Seg Neutrophils # Man 6.4 K/mm3 (1.8-7.7) 05/12/21 04:05 Band Neutrophils # 0.1 K/mm3 05/12/21 04:05 Lymphocytes # (Manual) 0.3 K/mm3 (1.2-5.4) L 05/12/21 04:05 Abs React Lymphs (Man) 0.0 K/mm3 05/12/21 04:05 Monocytes # (Manual) 0.1 K/mm3 (0.0-0.8) 05/12/21 04:05 Eosinophils # (Manual) 0.0 K/mm3 (0.0-0.4) 05/12/21 04:05 Basophils # (Manual) 0.0 K/mm3 (0.0-0.1) 05/12/21 04:05 Metamyelocytes # 0.0 K/mm3 05/12/21 04:05 Myelocytes # 0.0 K/mm3 05/12/21 04:05 Promyelocytes # 0.0 K/mm3 05/12/21 04:05 Blast Cells # 0.0 K/mm3 05/12/21 04:05 WBC Morphology Not Reportable 05/12/21 04:05 Hypersegmented Neuts Not Reportable 05/12/21 04:05 Hyposegmented Neuts Not Reportable 05/12/21 04:05 Hypogranular Neuts Not Reportable 05/12/21 04:05 Smudge Cells Not Reportable 05/12/21 04:05 Toxic Granulation Not Reportable 05/12/21 04:05 Toxic Vacuolation Not Reportable 05/12/21 04:05 Dohle Bodies Not Reportable 05/12/21 04:05 Pelger-Huet Anomaly Not Reportable 05/12/21 04:05 Janelle Rods Not Reportable 05/12/21 04:05 Platelet Estimate Consistent w auto 05/12/21 04:05 Clumped Platelets Not Reportable 05/12/21 04:05 Plt Clumps, EDTA Not Reportable 05/12/21 04:05 Large Platelets Not Reportable 05/12/21 04:05 Giant Platelets Not Reportable 05/12/21 04:05 Platelet Satelliting Not Reportable 05/12/21 04:05 Plt Morphology Comment Not Reportable 05/12/21 04:05 RBC Morphology Normal 05/12/21 04:05 Dimorphic RBCs Not Reportable 05/12/21 04:05 Polychromasia Not Reportable 05/12/21 04:05 Hypochromasia Not Reportable 05/12/21 04:05 Poikilocytosis Not Reportable 05/12/21 04:05 Anisocytosis Not Reportable 05/12/21 04:05 Microcytosis Not Reportable 05/12/21 04:05 Macrocytosis Not Reportable 05/12/21 04:05 Spherocytes Not Reportable 05/12/21 04:05 Pappenheimer Bodies Not Reportable 05/12/21 04:05 Sickle Cells Not Reportable 05/12/21 04:05 Target Cells Not Reportable 05/12/21 04:05 Tear Drop Cells Not Reportable 05/12/21 04:05 Ovalocytes Not Reportable 05/12/21 04:05 Helmet Cells Not Reportable 05/12/21 04:05 [place] Bodies Not Reportable 05/12/21 04:05 [place] Rings Not Reportable 05/12/21 04:05 Crow Cells Not Reportable 05/12/21 04:05 Bite Cells Not Reportable 05/12/21 04:05 Crenated Cell Not Reportable 05/12/21 04:05 Elliptocytes Not Reportable 05/12/21 04:05 Acanthocytes (Spur) Not Reportable 05/12/21 04:05 Rouleaux Not Reportable 05/12/21 04:05 Hemoglobin C Crystals Not Reportable 05/12/21 04:05 Schistocytes Not Reportable 05/12/21 04:05 Malaria parasites Not Reportable 05/12/21 04:05 Justin Bodies Not Reportable 05/12/21 04:05 Hem Pathologist Commnt No 05/12/21 04:05 D-Dimer 488.49 ng/mlDDU (0-234) H 06/05/21 05:26 ABG pH 7.403 pH Units (7.350-7.450) 05/14/21 02:23 POC ABG pCO2 45.4 mmHg (32.0-48.0) 05/03/21 04:49 ABG pCO2 50.2 mm Hg 05/14/21 02:23 POC ABG pO2 65.3 mmHg (83-108) L 05/03/21 04:49 ABG pO2 130.3 mm Hg (80.0-90.0) H 05/14/21 02:23 POC ABG HCO3 18.5 05/03/21 04:49 ABG HCO3 30.6 mmol/L (20.0-26.0) H 05/14/21 02:23 ABG O2 Saturation 98.5 % (95.0-99.0) 05/14/21 02:23 ABG O2 Content 17.9 (0.0-44) 05/14/21 02:23 POC ABG Base Excess -8.9 05/03/21 04:49 ABG Base Excess 4.9 mmol/L (-2.0-3.0) H 05/14/21 02:23 ABG Hemoglobin 13.0 gm/dl (12.0-16.0) 05/14/21 02:23 ABG Oxyhemoglobin 87.8 (94-98) L 05/03/21 04:49 ABG Carboxyhemoglobin 1.4 % (0.0-5.0) 05/14/21 02:23 ABG Methemoglobin 0.6 % (0.0-1.5) 05/14/21 02:23 ABG Sodium 133.0 mmol/L (136.0-145.0) L 05/03/21 04:49 ABG Potassium 3.9 mmol/L (3.40-4.50) 05/03/21 04:49 ABG Chloride 97.0 mmol/L (98-107) L 05/03/21 04:49 ABG Glucose 403 mg/dL (65-95) H 05/03/21 04:49 Oxyhemoglobin 96.5 % (95.0-99.0) 05/14/21 02:23 Carboxyhemoglobin 0.6 (0.5-1.5) 05/03/21 04:49 FiO2 90 % 05/14/21 02:23 FiO2 % 100.0 05/03/21 04:49 Sodium 142 mmol/L (137-145) 06/28/21 05:43 Potassium 3.3 mmol/L (3.6-5.0) L 06/28/21 05:43 Chloride 99.1 mmol/L (98-107) 06/28/21 05:43 Carbon Dioxide 29 mmol/L (22-30) 06/28/21 05:43 Anion Gap 17 mmol/L 06/28/21 05:43 BUN 22 mg/dL (7-17) H 06/28/21 05:43 Creatinine 0.2 mg/dL (0.6-1.2) L 06/28/21 05:43 Estimated GFR > 60 ml/min 06/28/21 05:43 BUN/Creatinine Ratio 110 % 06/28/21 05:43 Glucose 73 mg/dL (65-100) 06/28/21 05:43 POC Glucose 101 mg/dL (70-105) 06/29/21 08:09 Hemoglobin A1c 8.5 % (4-6) H 04/18/21 07:36 Calcium 9.3 mg/dL (8.4-10.2) 06/28/21 05:43 Phosphorus 3.60 mg/dL (2.5-4.5) 05/06/21 05:00 Magnesium 2.00 mg/dL (1.7-2.3) 05/06/21 05:00 Ferritin 187.7 ng/mL (10.0-200.0) 06/05/21 05:26 Total Bilirubin 0.30 mg/dL (0.1-1.2) 06/28/21 05:43 AST 19 units/L (5-40) 06/28/21 05:43 ALT 63 units/L (7-56) H 06/28/21 05:43 Alkaline Phosphatase 61 units/L (35-129) 06/28/21 05:43 Lactate Dehydrogenase 475 units/L (91-180) H 06/05/21 05:26 C-Reactive Protein 0.10 mg/dL (0.00-1.30) 06/05/21 05:26 Total Protein 6.5 g/dL (6.3-8.2) 06/28/21 05:43 Albumin 3.3 g/dL (3.9-5) L 06/28/21 05:43 Albumin/Globulin Ratio 1.0 % 06/28/21 05:43 Triglycerides < 9 mg/dL (2-149) 05/03/21 04:30 Procalcitonin < 0.05 ng/mL (<0.15) 05/23/21 09:50 Arterial Blood Glucose 403 mg/dL (65-95) H 05/03/21 04:49 Arterial Blood Ionized Calcium 4.9 mg/dL (4.6-5.3) 05/03/21 04:49 Coronavirus (PCR) Positive (Negative) A 06/05/21 08:30 Amos/IV: Voiding Method Bedside Commode Active Medications - Current Medications Current Medications: Generic Name Dose Route Start Last Admin Trade Name Freq PRN Reason Stop Dose Admin Acetaminophen 650 mg 04/16/21 14:00 06/28/21 10:56 Acetaminophen 325 Mg Tab PO 650 mg Q4H PRN Administration Pain MILD(1-3)/Fever >100.5/[place] Albuterol 2.5 mg 04/16/21 13:39 04/21/21 20:39 Albuterol 2.5 Mg/3 Ml Nebu IH 2.5 mg Q4HRT PRN Administration Shortness Of Breath Ascorbic Acid 500 mg 04/24/21 10:00 06/29/21 09:09 Ascorbic Acid 500 Mg Tab PO 500 mg QDAY TUTU Administration Bisacodyl 10 mg 06/10/21 18:00 Bisacodyl 10 Mg Rect Supp CA QDAY PRN Constipation Cholecalciferol 1,000 unit 04/17/21 10:00 06/29/21 09:09 Cholecalciferol (Vit D3) 1000 Unit (25 Mcg) Tab PO 1,000 unit QDAY TUTU Administration Clonazepam 1 mg 05/29/21 08:06 06/28/21 10:36 Clonazepam 0.5 Mg Tab PO 1 mg Q8H PRN Administration Anxiety Dextrose 50 ml 04/18/21 07:30 04/28/21 09:59 Dextrose 50% In Water (25gm) 50 Ml Syringe IV 50 ml Q30MIN PRN Administration Hypoglycemia Protocol Docusate Sodium 100 mg 04/30/21 10:00 06/29/21 09:09 Docusate Sodium 100 Mg Cap PO 100 mg BID TUTU Administration Enoxaparin Sodium 40 mg 05/19/21 22:00 06/28/21 21:50 Enoxaparin 40 Mg/0.4 Ml Inj SUB-Q 40 mg QDAY@2200 TUTU Administration Protocol Furosemide 40 mg 06/07/21 10:00 06/29/21 09:09 Furosemide 40 Mg/4 Ml Inj IV 40 mg QDAY TUTU Administration Insulin Glargine 15 units 06/25/21 10:00 06/29/21 09:09 Insulin Glargine 100 Units/Ml SUB-Q 15 units DAILY TUTU Administration Insulin Human Lispro 0 unit 05/18/21 12:00 06/29/21 08:39 Insulin Lispro 100 Unit/Ml SUB-Q Not Given ACHS [facility] Protocol Lorazepam 1 mg 05/25/21 14:40 06/11/21 23:55 Lorazepam 2 Mg/Ml Vial IV 1 mg Q6H PRN Administration Agitation Magnesium Hydroxide 30 ml 06/07/21 16:30 06/11/21 11:06 Magnesium Hydroxide (Mom) Oral Liqd Udc PO 30 ml QDAY PRN Administration Constipation Ondansetron HCl 4 mg 04/16/21 14:00 05/30/21 10:07 Ondansetron 4 Mg/2 Ml Inj IV 4 mg Q8H PRN Administration Nausea And Vomiting Potassium Chloride 40 meq 06/29/21 12:00 Potassium Chloride Er 20 Meq Tab PO 06/29/21 12:01 ONCE ONE Prednisone 20 mg 06/26/21 16:00 06/29/21 09:09 Prednisone 20 Mg Tab PO 20 mg QDAY TUTU Administration Senna 17.2 mg 05/02/21 22:00 06/28/21 21:50 Sennosides 8.6 Mg Tab PO 17.2 mg QHS TUTU Administration Sodium Chloride 10 ml 04/16/21 22:00 06/29/21 09:10 Sodium Chloride 0.9% 10 Ml Flush Syringe IV 10 ml BID TUTU Administration Sodium Chloride 10 ml 04/16/21 13:39 05/22/21 15:21 Sodium Chloride 0.9% 10 Ml Flush Syringe IV 10 ml PRN PRN Administration LINE FLUSH Zinc Sulfate 220 mg 04/16/21 22:00 06/29/21 09:09 Zinc Sulfate 220 Mg Cap PO 220 mg BID TUTU Administration Zolpidem Tartrate 10 mg 05/26/21 08:56 06/28/21 22:34 Zolpidem 5 Mg Tab PO 10 mg QHS PRN Administration Insomnia Nutrition/Malnutrition Assess - Dietary Evaluation Nutrition/Malnutrition Findings: Nutrition Notes Start: 04/23/21 07:41 Freq: Status: Active Protocol: Document 06/04/21 11:07 FABIAN (Rec: 06/04/21 11:07 FABIAN [id number]) Nutrition Notes Initial or Follow up Brief Note Current Diagnosis Respiratory Failure Other Pertinent Diagnosis oral thrush, COVID-19 pneu Current Diet GI soft Subjective/Other Information Pt continues to eat 75-100% of meals. Nutrition Intervention Revisit per MD consult or patient Sign Off request:
[2021-06-29] MEDS ORDERED: POTASSIUM CHLORIDE ER 20 MEQ TAB PO ONE (12:00)
[2021-06-29] MEDS: ENOXAPARIN 40 MG/0.4 ML INJ SUB-Q SCH (21:28)
[2021-06-29] MEDS: ZOLPIDEM 5 MG TAB PO PRN (21:28)
[2021-06-29] MEDS: SENNOSIDES 8.6 MG TAB PO SCH (21:29)
[2021-06-30 06:27] LABS: Blood Urea Nitrogen 18 mg/dL (7-17); Calcium 9.3 mg/dL (8.4-10.2); Hemolysis Index 1
[2021-06-30 06:38] LABS: BUN/Creatinine Ratio 60
[2021-06-30] MEDS: INSULIN LISPRO 100 UNIT/ML SUB-Q SCH ×4 (08:28→21:58)
[2021-06-30] MEDS ORDERED: POTASSIUM CHLORIDE ER 20 MEQ TAB PO NR (08:30)
[2021-06-30] MEDS: CHOLECALCIFEROL (VIT D3) 1000 UNIT (25 mcg) TAB PO SCH (09:15)
[2021-06-30] MEDS: ZINC SULFATE 220 MG CAP PO SCH ×2 (09:15→21:57)
[2021-06-30] MEDS: INSULIN GLARGINE 100 UNITS/ML SUB-Q SCH (09:15)
[2021-06-30] MEDS: DOCUSATE SODIUM 100 MG CAP PO SCH ×2 (09:15→21:57)
[2021-06-30] MEDS: ASCORBIC ACID 500 MG TAB PO SCH (09:15)
[2021-06-30] MEDS: FUROSEMIDE 40 MG/4 ML INJ IV SCH (09:15)
[2021-06-30] MEDS: predniSONE 20 MG TAB PO SCH (09:16)
--- NOTE | 2021-06-30 09:55 | Progress Note ---
Assessment and Plan Assessment and plan: Admit 04/16 from ER 50 YO Female with GERD, Obesity, HLD presents to ED for evaluation. Patient reports "I cannot breathe". Patient states that she has experienced subjective fever, shortness of breath, malaise, body aches, dry cough, and shortness of breath over the past 1 week with progressively worsening symptoms over the same timeframe. EMS was notified and upon arrival the patient was found to be in distress and subsequent transported to [facility] for further care and evaluation of the aforementioned symptoms. The patient was seen and evaluated in the emergency department. All lab and imaging studies reviewed. Patient found to have a pulse oximetry of 86% with exertion on room air which is consistent with acute hypoxemic respiratory failure. Patient with chest x-ray which revealed bilateral pneumonia. Patient admitted to medical floor and initiated him on pneumonia protocol as well as coronavirus protocol. Patient knowledges fever but denies chills, chest pain, palpitation, skin rash, recent ill contacts, or known exposure to COVID-19. Prior admission on 01/21/2017 reviewed. All m edication listed at time of admission has been reconciled. Patient is unvaccinated for coronavirus infection. CXR: Bilateral Pneumonia 04/17: Patient seen and examined, still uncomfortable with Hypoxic respiratory failure and on oxygen, will continue to steroids therapy, start patient on Remdesivir, ID consulted, Pulmonary consult placed. 04/18: Patient seen and examined, she is currently being changed to High flow NC due to worsening HYPOXIA, will transfer to IMCU, Pulmonary and ID following. Will also give a dose of Lasix today. Monitor Inflammatory markers. 04/19: Patient seen and examined still on high flow due to hypoxia. Appears a bit more comfortable today than yesterday. Cough has decreased in frequency. We will continue high dose Dexameathasone to complete 10 days. continue on Remdesivir 200 mg IV q day x 1 followed by 100 mg IV q day x 4 days -Obtain q48-72h inflammatory markers - ferritin, Ddimer, CRP, LDH Will also give lasix daily for the next 3 days and monitor renal function. Family updated. Continue prone positioning as tolerated 04/20: Patient has some desaturation episodes yesterday was placed on BiPAP. Discussed with ICU team for bed availability for patient to be transferred up. Continue prone position as tolerated. 8/8: Patient remains with profound hypoxia secondary to COVID pneumonia. -Continue steroids -Continue remedesir -S/P Actmera 04/22: Patient remains on steroids and remdesivir. ABG shows persistent hypoxia. We will continue current management additional trial of Lasix for the next few days to see if any improvement. Monitor inflammatory markers as needed. Prognosis is guarded remains on high flow 04/23; patient was treated with remdesivir and Actemra. Continue steroid. Patient's prognosis is guarded. 04/24; patient is on steroid. Patient is currently on BiPAP. Prognosis is guarded. Pulmonary is following. Patient was given Lasix and Ativan. 04/25; continue steroid. Patient was on 40 L of high flow oxygen with saturation was 88%. Pulmonary is following. Prognosis is guarded. Patient was given lasix and ativan. 04/26; patient is on BiPAP and Precedex. Prognosis is guarded. 04/27; patient is on BiPAP and Precedex. Patient will finish steroid today and will start on Solu-Medrol tomorrow. Prognosis is guarded. Blood pressure is better today. Hold Lasix. 04/28 patient is on 100 Fio2 via BIPAP. moderately dyspneic, pulmonary note reviewed, lab results reviewed 04/29 no acute events- see systems review above 04/30 no acute events overnight - on airvo today- TPN started -see systems review above 05-01 no acute events overnight- tolerating airvo- see systems review above 05-02 no acute events overnight; tolerating airvo this AM- see systems review above 05/03: Patient remains on full high flow oxygen. No acute events overnight 05/04: Patient remains on BiPAP this morning at 70%. Returning to service Patient initially managed in the ICU and then transfered to the floor 06/25: Patient remains on full oxygen with high flow, encouraged to prone at night time. Spoke to Night nursing staff to ensure assisting the patient Prone. Continue steroid therapy, will discuss with Pulmonary about trying additional lasix. Plan discussed with patient and family. 06/26: Patient already on Lasix daily, Hypokalemia- Replace K. Continue to encourage Proning. Remains on high flow. 06/27: Continue supportive care unfortunately had to go up on her oxygen to 70% FiO2 prognosis remains guarded continue to encourage proning. 10/15: Continue supportive care, Encourage Proning 06/29: Mild hypokalemia noted yesterday will be replaced as it was not corrected yesterday we will recheck BMP in a.m. Continue IV Lasix. Monitor renal function. 06/30: Give additional potassium for better control. Continue supportive care. Continue IV Lasix. Continue to encourage proning again discussed with the patient via tape maker. He verbalized understanding Sepsis secondary to COVID 19 Acute hypoxemic respiratory failure Current Visit: Yes Status: Acute Plan to address problem: Supplemental oxygen, pulse oximetry, nebulizer therapy, proposition while in bed, noninvasive positive pressure ventilation as clinically indicated. Patient remains on high flow supplemental oxygen without much improvement of hypoxia. Will continue to attempt to wean O2 as tolerated. Pneumonia Current Visit: Yes Status: Acute Qualifiers: Aspiration pneumonia type: unspecified Laterality: unspecified laterality Lung location: unspecified part of lung Plan to address problem: Pneumonia protocol: Chest x-ray, CBC, CMP, IV antibiotic therapy, blood culture. Coronavirus infection Current Visit: Yes Status: Acute Plan to address problem: Supportive care, infectious disease service consulted. Continue medical management. Anxiety Right eye- viral conjunctivitis vs subconjunctival hemorrhage continue to monitor treated with ofloxacin ou x 5 days artificial tears has not provided relief Protein gisella malnutrition given inc metabolic demand with resp insufficiency Now off TPN Diabetes mellitus with Hyperglycemia; Noted hypoglycemia will wean down lantus. glargine HS SSI AC/HS Obesity - volume overload; hypona; hypoMg DVT prophylaxis Current Visit: Yes Status: Acute Plan to address problem: SCD to bilateral lower extremities while in bed, prophylactic anticoagulation History Interval history: Patient seen and examined, still with shortness of breath, Still on high flow with oxygen saturation of 92% on 50% FiO2 Hospitalist Physical - Physical exam Narrative exam: General appearance: Absent: mild distress, Continues on High Flow 35L and 50%- - EENT Eyes: Present: PERRL ENT: hearing intact, clear oral mucosa - Neck Neck: Present: supple, normal ROM - Respiratory Respiratory effort: normal Respiratory: bilateral: Diminished - Cardiovascular Heart Sounds: Present: S1 & S2. Absent: rub, click - Extremities Extremities: pulses symmetrical, No edema Peripheral Pulses: within normal limits - Abdominal General gastrointestinal: Present: soft, non-tender, non-distended, normal bowel sounds Female genitourinary: Present: normal - Integumentary Integumentary: Present: clear, warm, dry - Musculoskeletal Musculoskeletal: gait normal, strength equal bilaterally - Psychiatric Psychiatric: appropriate mood/affect, intact judgment & insight - Neurologic Neurologic: CNII-XII intact, moves all extremities - Constitutional Vitals: Temp Pulse Resp BP Pulse Ox 98.2 F 86 18 118/71 92 06/30/21 03:59 06/30/21 03:59 06/30/21 03:59 06/30/21 03:59 06/30/21 08:52 General appearance: Present: mild distress, well-nourished Results - Labs CBC & Chem 7: 06/28/21 05:43 06/30/21 04:00 Labs: Laboratory Last Values WBC 7.4 K/mm3 (4.5-11.0) 06/28/21 05:43 RBC 4.02 M/mm3 (3.65-5.03) 06/28/21 05:43 Hgb 13.0 gm/dl (10.1-14.3) 06/28/21 05:43 Hct 38.2 % (30.3-42.9) 06/28/21 05:43 MCV 95 fl (79-97) 06/28/21 05:43 MCH 33 pg (28-32) H 06/28/21 05:43 MCHC 34 % (30-34) 06/28/21 05:43 RDW 19.8 % (13.2-15.2) H 06/28/21 05:43 Plt Count 203 K/mm3 (140-440) 06/28/21 05:43 Lymph % (Auto) 30.3 % (13.4-35.0) 06/21/21 06:45 Camp % (Auto) 6.5 % (0.0-7.3) 06/21/21 06:45 Eos % (Auto) 0.7 % (0.0-4.3) 06/21/21 06:45 Baso % (Auto) 0.5 % (0.0-1.8) 06/21/21 06:45 Lymph # (Auto) 2.8 K/mm3 (1.2-5.4) 06/21/21 06:45 Camp # (Auto) 0.6 K/mm3 (0.0-0.8) 06/21/21 06:45 Eos # (Auto) 0.1 K/mm3 (0.0-0.4) 06/21/21 06:45 Baso # (Auto) 0.0 K/mm3 (0.0-0.1) 06/21/21 06:45 Add Manual Diff Complete 05/12/21 04:05 Total Counted 100 05/12/21 04:05 Seg Neutrophils % 62.0 % (40.0-70.0) 06/21/21 06:45 Seg Neuts % (Manual) 94.0 % (40.0-70.0) H 05/12/21 04:05 Band Neutrophils % 1.0 % 05/12/21 04:05 Lymphocytes % (Manual) 4.0 % (13.4-35.0) L 05/12/21 04:05 Monocytes % (Manual) 1.0 % (0.0-7.3) 05/12/21 04:05 Nucleated RBC % Not Reportable 05/12/21 04:05 Seg Neutrophils # 5.7 K/mm3 (1.8-7.7) 06/21/21 06:45 Seg Neutrophils # Man 6.4 K/mm3 (1.8-7.7) 05/12/21 04:05 Band Neutrophils # 0.1 K/mm3 05/12/21 04:05 Lymphocytes # (Manual) 0.3 K/mm3 (1.2-5.4) L 05/12/21 04:05 Abs React Lymphs (Man) 0.0 K/mm3 05/12/21 04:05 Monocytes # (Manual) 0.1 K/mm3 (0.0-0.8) 05/12/21 04:05 Eosinophils # (Manual) 0.0 K/mm3 (0.0-0.4) 05/12/21 04:05 Basophils # (Manual) 0.0 K/mm3 (0.0-0.1) 05/12/21 04:05 Metamyelocytes # 0.0 K/mm3 05/12/21 04:05 Myelocytes # 0.0 K/mm3 05/12/21 04:05 Promyelocytes # 0.0 K/mm3 05/12/21 04:05 Blast Cells # 0.0 K/mm3 05/12/21 04:05 WBC Morphology Not Reportable 05/12/21 04:05 Hypersegmented Neuts Not Reportable 05/12/21 04:05 Hyposegmented Neuts Not Reportable 05/12/21 04:05 Hypogranular Neuts Not Reportable 05/12/21 04:05 Smudge Cells Not Reportable 05/12/21 04:05 Toxic Granulation Not Reportable 05/12/21 04:05 Toxic Vacuolation Not Reportable 05/12/21 04:05 Dohle Bodies Not Reportable 05/12/21 04:05 Pelger-Huet Anomaly Not Reportable 05/12/21 04:05 Janelle Rods Not Reportable 05/12/21 04:05 Platelet Estimate Consistent w auto 05/12/21 04:05 Clumped Platelets Not Reportable 05/12/21 04:05 Plt Clumps, EDTA Not Reportable 05/12/21 04:05 Large Platelets Not Reportable 05/12/21 04:05 Giant Platelets Not Reportable 05/12/21 04:05 Platelet Satelliting Not Reportable 05/12/21 04:05 Plt Morphology Comment Not Reportable 05/12/21 04:05 RBC Morphology Normal 05/12/21 04:05 Dimorphic RBCs Not Reportable 05/12/21 04:05 Polychromasia Not Reportable 05/12/21 04:05 Hypochromasia Not Reportable 05/12/21 04:05 Poikilocytosis Not Reportable 05/12/21 04:05 Anisocytosis Not Reportable 05/12/21 04:05 Microcytosis Not Reportable 05/12/21 04:05 Macrocytosis Not Reportable 05/12/21 04:05 Spherocytes Not Reportable 05/12/21 04:05 Pappenheimer Bodies Not Reportable 05/12/21 04:05 Sickle Cells Not Reportable 05/12/21 04:05 Target Cells Not Reportable 05/12/21 04:05 Tear Drop Cells Not Reportable 05/12/21 04:05 Ovalocytes Not Reportable 05/12/21 04:05 Helmet Cells Not Reportable 05/12/21 04:05 [place] Bodies Not Reportable 05/12/21 04:05 [place] Rings Not Reportable 05/12/21 04:05 Crow Cells Not Reportable 05/12/21 04:05 Bite Cells Not Reportable 05/12/21 04:05 Crenated Cell Not Reportable 05/12/21 04:05 Elliptocytes Not Reportable 05/12/21 04:05 Acanthocytes (Spur) Not Reportable 05/12/21 04:05 Rouleaux Not Reportable 05/12/21 04:05 Hemoglobin C Crystals Not Reportable 05/12/21 04:05 Schistocytes Not Reportable 05/12/21 04:05 Malaria parasites Not Reportable 05/12/21 04:05 Justin Bodies Not Reportable 05/12/21 04:05 Hem Pathologist Commnt No 05/12/21 04:05 D-Dimer 488.49 ng/mlDDU (0-234) H 06/05/21 05:26 ABG pH 7.403 pH Units (7.350-7.450) 05/14/21 02:23 POC ABG pCO2 45.4 mmHg (32.0-48.0) 05/03/21 04:49 ABG pCO2 50.2 mm Hg 05/14/21 02:23 POC ABG pO2 65.3 mmHg (83-108) L 05/03/21 04:49 ABG pO2 130.3 mm Hg (80.0-90.0) H 05/14/21 02:23 POC ABG HCO3 18.5 05/03/21 04:49 ABG HCO3 30.6 mmol/L (20.0-26.0) H 05/14/21 02:23 ABG O2 Saturation 98.5 % (95.0-99.0) 05/14/21 02:23 ABG O2 Content 17.9 (0.0-44) 05/14/21 02:23 POC ABG Base Excess -8.9 05/03/21 04:49 ABG Base Excess 4.9 mmol/L (-2.0-3.0) H 05/14/21 02:23 ABG Hemoglobin 13.0 gm/dl (12.0-16.0) 05/14/21 02:23 ABG Oxyhemoglobin 87.8 (94-98) L 05/03/21 04:49 ABG Carboxyhemoglobin 1.4 % (0.0-5.0) 05/14/21 02:23 ABG Methemoglobin 0.6 % (0.0-1.5) 05/14/21 02:23 ABG Sodium 133.0 mmol/L (136.0-145.0) L 05/03/21 04:49 ABG Potassium 3.9 mmol/L (3.40-4.50) 05/03/21 04:49 ABG Chloride 97.0 mmol/L (98-107) L 05/03/21 04:49 ABG Glucose 403 mg/dL (65-95) H 05/03/21 04:49 Oxyhemoglobin 96.5 % (95.0-99.0) 05/14/21 02:23 Carboxyhemoglobin 0.6 (0.5-1.5) 05/03/21 04:49 FiO2 90 % 05/14/21 02:23 FiO2 % 100.0 05/03/21 04:49 Sodium 141 mmol/L (137-145) 06/30/21 04:00 Potassium 3.5 mmol/L (3.6-5.0) L 06/30/21 04:00 Chloride 100.3 mmol/L (98-107) 06/30/21 04:00 Carbon Dioxide 28 mmol/L (22-30) 06/30/21 04:00 Anion Gap 16 mmol/L 06/30/21 04:00 BUN 18 mg/dL (7-17) H 06/30/21 04:00 Creatinine 0.3 mg/dL (0.6-1.2) L 06/30/21 04:00 Estimated GFR > 60 ml/min 06/30/21 04:00 BUN/Creatinine Ratio 60 % 06/30/21 04:00 Glucose 111 mg/dL (65-100) H 06/30/21 04:00 POC Glucose 117 mg/dL (70-105) H 06/30/21 07:50 Hemoglobin A1c 8.5 % (4-6) H 04/18/21 07:36 Calcium 9.3 mg/dL (8.4-10.2) 06/30/21 04:00 Phosphorus 3.60 mg/dL (2.5-4.5) 05/06/21 05:00 Magnesium 2.00 mg/dL (1.7-2.3) 05/06/21 05:00 Ferritin 187.7 ng/mL (10.0-200.0) 06/05/21 05:26 Total Bilirubin 0.30 mg/dL (0.1-1.2) 06/28/21 05:43 AST 19 units/L (5-40) 06/28/21 05:43 ALT 63 units/L (7-56) H 06/28/21 05:43 Alkaline Phosphatase 61 units/L (35-129) 06/28/21 05:43 Lactate Dehydrogenase 475 units/L (91-180) H 06/05/21 05:26 C-Reactive Protein 0.10 mg/dL (0.00-1.30) 06/05/21 05:26 Total Protein 6.5 g/dL (6.3-8.2) 06/28/21 05:43 Albumin 3.3 g/dL (3.9-5) L 06/28/21 05:43 Albumin/Globulin Ratio 1.0 % 06/28/21 05:43 Triglycerides < 9 mg/dL (2-149) 05/03/21 04:30 Procalcitonin < 0.05 ng/mL (<0.15) 05/23/21 09:50 Arterial Blood Glucose 403 mg/dL (65-95) H 05/03/21 04:49 Arterial Blood Ionized Calcium 4.9 mg/dL (4.6-5.3) 05/03/21 04:49 Coronavirus (PCR) Positive (Negative) A 06/05/21 08:30 Amos/IV: Voiding Method Bedside Commode Active Medications - Current Medications Current Medications: Generic Name Dose Route Start Last Admin Trade Name Freq PRN Reason Stop Dose Admin Acetaminophen 650 mg 04/16/21 14:00 06/28/21 10:56 Acetaminophen 325 Mg Tab PO 650 mg Q4H PRN Administration Pain MILD(1-3)/Fever >100.5/[place] Albuterol 2.5 mg 04/16/21 13:39 04/21/21 20:39 Albuterol 2.5 Mg/3 Ml Nebu IH 2.5 mg Q4HRT PRN Administration Shortness Of Breath Ascorbic Acid 500 mg 04/24/21 10:00 06/30/21 09:15 Ascorbic Acid 500 Mg Tab PO 500 mg QDAY TUTU Administration Bisacodyl 10 mg 06/10/21 18:00 Bisacodyl 10 Mg Rect Supp [place] QDAY PRN Constipation Cholecalciferol 1,000 unit 04/17/21 10:00 06/30/21 09:15 Cholecalciferol (Vit D3) 1000 Unit (25 Mcg) Tab PO 1,000 unit QDAY TUTU Administration Clonazepam 1 mg 05/29/21 08:06 06/28/21 10:36 Clonazepam 0.5 Mg Tab PO 1 mg Q8H PRN Administration Anxiety Dextrose 50 ml 04/18/21 07:30 04/28/21 09:59 Dextrose 50% In Water (25gm) 50 Ml Syringe IV 50 ml Q30MIN PRN Administration Hypoglycemia Protocol Docusate Sodium 100 mg 04/30/21 10:00 06/30/21 09:15 Docusate Sodium 100 Mg Cap PO 100 mg BID TUTU Administration Enoxaparin Sodium 40 mg 05/19/21 22:00 06/29/21 21:28 Enoxaparin 40 Mg/0.4 Ml Inj SUB-Q 40 mg QDAY@2200 TUTU Administration Protocol Furosemide 40 mg 06/07/21 10:00 06/30/21 09:15 Furosemide 40 Mg/4 Ml Inj IV 40 mg QDAY TUTU Administration Insulin Glargine 15 units 06/25/21 10:00 06/30/21 09:15 Insulin Glargine 100 Units/Ml SUB-Q 15 units DAILY TUTU Administration Insulin Human Lispro 0 unit 05/18/21 12:00 06/30/21 08:28 Insulin Lispro 100 Unit/Ml SUB-Q Not Given ACHS TUTU Protocol Lorazepam 1 mg 05/25/21 14:40 06/11/21 23:55 Lorazepam 2 Mg/Ml Vial IV 1 mg Q6H PRN Administration Agitation Magnesium Hydroxide 30 ml 06/07/21 16:30 06/11/21 11:06 Magnesium Hydroxide (Mom) Oral Liqd Udc PO 30 ml QDAY PRN Administration Constipation Ondansetron HCl 4 mg 04/16/21 14:00 05/30/21 10:07 Ondansetron 4 Mg/2 Ml Inj IV 4 mg Q8H PRN Administration Nausea And Vomiting Potassium Chloride 40 meq 06/30/21 08:30 06/30/21 08:48 Potassium Chloride Er 20 Meq Tab PO 06/30/21 11:00 40 meq ONCE@0830 NR Administration Prednisone 20 mg 06/26/21 16:00 06/30/21 09:16 Prednisone 20 Mg Tab PO 20 mg QDAY TUTU Administration Senna 17.2 mg 05/02/21 22:00 06/29/21 21:29 Sennosides 8.6 Mg Tab PO 17.2 mg QHS TUTU Administration Sodium Chloride 10 ml 04/16/21 22:00 06/30/21 09:16 Sodium Chloride 0.9% 10 Ml Flush Syringe IV 10 ml BID TUTU Administration Sodium Chloride 10 ml 04/16/21 13:39 05/22/21 15:21 Sodium Chloride 0.9% 10 Ml Flush Syringe IV 10 ml PRN PRN Administration LINE FLUSH Zinc Sulfate 220 mg 04/16/21 22:00 06/30/21 09:15 Zinc Sulfate 220 Mg Cap PO 220 mg BID TUTU Administration Zolpidem Tartrate 10 mg 05/26/21 08:56 06/29/21 21:28 Zolpidem 5 Mg Tab PO 10 mg QHS PRN Administration Insomnia Nutrition/Malnutrition Assess - Dietary Evaluation Nutrition/Malnutrition Findings: Nutrition Notes Start: 04/23/21 07:41 Freq: Status: Active Protocol: Document 06/04/21 11:07 FABIAN (Rec: 06/04/21 11:07 FABIAN [id number]) Nutrition Notes Initial or Follow up Brief Note Current Diagnosis Respiratory Failure Other Pertinent Diagnosis oral thrush, COVID-19 pneu Current Diet GI soft Subjective/Other Information Pt continues to eat 75-100% of meals. Nutrition Intervention Revisit per MD consult or patient Sign Off request:
[2021-06-30] MEDS: ENOXAPARIN 40 MG/0.4 ML INJ SUB-Q SCH (21:57)
[2021-06-30] MEDS: SENNOSIDES 8.6 MG TAB PO SCH (21:57)
[2021-06-30] MEDS: ZOLPIDEM 5 MG TAB PO PRN (21:57)
[2021-07-01] MEDS: INSULIN LISPRO 100 UNIT/ML SUB-Q SCH ×4 (08:13→22:57)
[2021-07-01] MEDS: DOCUSATE SODIUM 100 MG CAP PO SCH ×2 (08:59→22:58)
[2021-07-01] MEDS: ASCORBIC ACID 500 MG TAB PO SCH (08:59)
[2021-07-01] MEDS: ZINC SULFATE 220 MG CAP PO SCH ×2 (08:59→22:58)
[2021-07-01] MEDS: INSULIN GLARGINE 100 UNITS/ML SUB-Q SCH (08:59)
[2021-07-01] MEDS: CHOLECALCIFEROL (VIT D3) 1000 UNIT (25 mcg) TAB PO SCH (08:59)
[2021-07-01] MEDS: predniSONE 20 MG TAB PO SCH (08:59)
--- NOTE | 2021-07-01 10:56 | Progress Note ---
Assessment and Plan Assessment and plan: Admit 04/16 from ER 50 YO Female with GERD, Obesity, HLD presents to ED for evaluation. Patient reports "I cannot breathe". Patient states that she has experienced subjective fever, shortness of breath, malaise, body aches, dry cough, and shortness of breath over the past 1 week with progressively worsening symptoms over the same timeframe. EMS was notified and upon arrival the patient was found to be in distress and subsequent transported to [facility] for further care and evaluation of the aforementioned symptoms. The patient was seen and evaluated in the emergency department. All lab and imaging studies reviewed. Patient found to have a pulse oximetry of 86% with exertion on room air which is consistent with acute hypoxemic respiratory failure. Patient with chest x-ray which revealed bilateral pneumonia. Patient admitted to medical floor and initiated him on pneumonia protocol as well as coronavirus protocol. Patient knowledges fever but denies chills, chest pain, palpitation, skin rash, recent ill contacts, or known exposure to COVID-19. Prior admission on 01/21/2017 reviewed. All m edication listed at time of admission has been reconciled. Patient is unvaccinated for coronavirus infection. CXR: Bilateral Pneumonia 04/17: Patient seen and examined, still uncomfortable with Hypoxic respiratory failure and on oxygen, will continue to steroids therapy, start patient on Remdesivir, ID consulted, Pulmonary consult placed. 04/18: Patient seen and examined, she is currently being changed to High flow NC due to worsening HYPOXIA, will transfer to IMCU, Pulmonary and ID following. Will also give a dose of Lasix today. Monitor Inflammatory markers. 04/19: Patient seen and examined still on high flow due to hypoxia. Appears a bit more comfortable today than yesterday. Cough has decreased in frequency. We will continue high dose Dexameathasone to complete 10 days. continue on Remdesivir 200 mg IV q day x 1 followed by 100 mg IV q day x 4 days -Obtain q48-72h inflammatory markers - ferritin, Ddimer, CRP, LDH Will also give lasix daily for the next 3 days and monitor renal function. Family updated. Continue prone positioning as tolerated 04/20: Patient has some desaturation episodes yesterday was placed on BiPAP. Discussed with ICU team for bed availability for patient to be transferred up. Continue prone position as tolerated. 8/8: Patient remains with profound hypoxia secondary to COVID pneumonia. -Continue steroids -Continue remedesir -S/P Actmera 04/22: Patient remains on steroids and remdesivir. ABG shows persistent hypoxia. We will continue current management additional trial of Lasix for the next few days to see if any improvement. Monitor inflammatory markers as needed. Prognosis is guarded remains on high flow 04/23; patient was treated with remdesivir and Actemra. Continue steroid. Patient's prognosis is guarded. 04/24; patient is on steroid. Patient is currently on BiPAP. Prognosis is guarded. Pulmonary is following. Patient was given Lasix and Ativan. 04/25; continue steroid. Patient was on 40 L of high flow oxygen with saturation was 88%. Pulmonary is following. Prognosis is guarded. Patient was given lasix and ativan. 04/26; patient is on BiPAP and Precedex. Prognosis is guarded. 04/27; patient is on BiPAP and Precedex. Patient will finish steroid today and will start on Solu-Medrol tomorrow. Prognosis is guarded. Blood pressure is better today. Hold Lasix. 04/28 patient is on 100 Fio2 via BIPAP. moderately dyspneic, pulmonary note reviewed, lab results reviewed 04/29 no acute events- see systems review above 04/30 no acute events overnight - on airvo today- TPN started -see systems review above 05-01 no acute events overnight- tolerating airvo- see systems review above 05-02 no acute events overnight; tolerating airvo this AM- see systems review above 05/03: Patient remains on full high flow oxygen. No acute events overnight 05/04: Patient remains on BiPAP this morning at 70%. Returning to service Patient initially managed in the ICU and then transfered to the floor 06/25: Patient remains on full oxygen with high flow, encouraged to prone at night time. Spoke to Night nursing staff to ensure assisting the patient Prone. Continue steroid therapy, will discuss with Pulmonary about trying additional lasix. Plan discussed with patient and family. 06/26: Patient already on Lasix daily, Hypokalemia- Replace K. Continue to encourage Proning. Remains on high flow. 06/27: Continue supportive care unfortunately had to go up on her oxygen to 70% FiO2 prognosis remains guarded continue to encourage proning. 10/15: Continue supportive care, Encourage Proning 06/29: Mild hypokalemia noted yesterday will be replaced as it was not corrected yesterday we will recheck BMP in a.m. Continue IV Lasix. Monitor renal function. 06/30: Give additional potassium for better control. Continue supportive care. Continue IV Lasix. Continue to encourage proning again discussed with the patient via restaurant attendant. He verbalized understanding 07/01: Brief summary patient seen and examined this morning continues to show improvement FiO2 demand down to 45% on 30 L on high flow. Patient is a 50-year-old male who was admitted with COVID-19 today is day 76 of her hospital stay she was initially managed in the ICU and now has been transferred to the floor. She remains on low-dose steroid therapy following completion of remdesivir and recommended steroid. She is encouraged to continue to prone and the nights that she has done this has shown some improvement. She is still probably a long way from being discharged. Intermittent monitoring off electrolytes as she has had some episode of hyponatremia and hypomagnesemia is recommended. She is concerned about puffiness in her face which is likely steroid-induced I have discussed this with her that it will improve following discontinuation of steroid. In the meantime I have held her Lasix as we have been diuresing her for majority of her stay and this should be reevaluated the next few days to see if she will benefit from further diuresis. Pulmonary is on board Sepsis secondary to COVID 19 Acute hypoxemic respiratory failure Current Visit: Yes Status: Acute Plan to address problem: Supplemental oxygen, pulse oximetry, nebulizer therapy, proposition while in bed, noninvasive positive pressure ventilation as clinically indicated. Patient remains on high flow supplemental oxygen without much improvement of hypoxia. Will continue to attempt to wean O2 as tolerated. Pneumonia Current Visit: Yes Status: Acute Qualifiers: Aspiration pneumonia type: unspecified Laterality: unspecified laterality Lung location: unspecified part of lung Plan to address problem: Pneumonia protocol: Chest x-ray, CBC, CMP, IV antibiotic therapy, blood culture. Coronavirus infection Current Visit: Yes Status: Acute Plan to address problem: Supportive care, infectious disease service consulted. Continue medical management. Anxiety Right eye- viral conjunctivitis vs subconjunctival hemorrhage continue to monitor treated with ofloxacin ou x 5 days artificial tears has not provided relief Protein gisella malnutrition given inc metabolic demand with resp insufficiency Now off TPN Diabetes mellitus with Hyperglycemia; Noted hypoglycemia will wean down lantus. glargine HS SSI AC/HS Obesity - volume overload; hypona; hypoMg DVT prophylaxis Current Visit: Yes Status: Acute Plan to address problem: SCD to bilateral lower extremities while in bed, prophylactic anticoagulation History Interval history: Patient seen and examined, still with shortness of breath, Still on high flow with oxygen saturation of 90-92% on 45% FiO2. Overnight the patient had tachycardic episode in the 140s. EKG did not reveal any atrial fibrillation. Hospitalist Physical - Physical exam Narrative exam: General appearance: Absent: mild distress, Continues on High Flow 30L and 45% FIO2 - EENT Eyes: Present: PERRL ENT: hearing intact, clear oral mucosa - Neck Neck: Present: supple, normal ROM - Respiratory Respiratory effort: normal Respiratory: bilateral: Diminished - Cardiovascular Heart Sounds: Present: S1 & S2. Mild tachycardia absent: rub, click - Extremities Extremities: pulses symmetrical, No edema Peripheral Pulses: within normal limits - Abdominal General gastrointestinal: Present: soft, non-tender, non-distended, normal bowel sounds Female genitourinary: Present: normal - Integumentary Integumentary: Present: clear, warm, dry - Musculoskeletal Musculoskeletal: gait normal, strength equal bilaterally - Psychiatric Psychiatric: appropriate mood/affect, intact judgment & insight - Neurologic Neurologic: CNII-XII intact, moves all extremities - Constitutional Vitals: Temp Pulse Resp BP Pulse Ox 98.0 F 98 H 20 137/76 92 07/01/21 05:31 07/01/21 05:31 07/01/21 05:31 07/01/21 05:31 07/01/21 09:49 General appearance: Present: mild distress, well-nourished Results - Labs CBC & Chem 7: 06/28/21 05:43 06/30/21 04:00 Labs: Laboratory Last Values WBC 7.4 K/mm3 (4.5-11.0) 06/28/21 05:43 RBC 4.02 M/mm3 (3.65-5.03) 06/28/21 05:43 Hgb 13.0 gm/dl (10.1-14.3) 06/28/21 05:43 Hct 38.2 % (30.3-42.9) 06/28/21 05:43 MCV 95 fl (79-97) 06/28/21 05:43 MCH 33 pg (28-32) H 06/28/21 05:43 MCHC 34 % (30-34) 06/28/21 05:43 RDW 19.8 % (13.2-15.2) H 06/28/21 05:43 Plt Count 203 K/mm3 (140-440) 06/28/21 05:43 Lymph % (Auto) 30.3 % (13.4-35.0) 06/21/21 06:45 [place] % (Auto) 6.5 % (0.0-7.3) 06/21/21 06:45 Eos % (Auto) 0.7 % (0.0-4.3) 06/21/21 06:45 Baso % (Auto) 0.5 % (0.0-1.8) 06/21/21 06:45 Lymph # (Auto) 2.8 K/mm3 (1.2-5.4) 06/21/21 06:45 [place] # (Auto) 0.6 K/mm3 (0.0-0.8) 06/21/21 06:45 Eos # (Auto) 0.1 K/mm3 (0.0-0.4) 06/21/21 06:45 Baso # (Auto) 0.0 K/mm3 (0.0-0.1) 06/21/21 06:45 Add Manual Diff Complete 05/12/21 04:05 Total Counted 100 05/12/21 04:05 Seg Neutrophils % 62.0 % (40.0-70.0) 06/21/21 06:45 Seg Neuts % (Manual) 94.0 % (40.0-70.0) H 05/12/21 04:05 Band Neutrophils % 1.0 % 05/12/21 04:05 Lymphocytes % (Manual) 4.0 % (13.4-35.0) L 05/12/21 04:05 Monocytes % (Manual) 1.0 % (0.0-7.3) 05/12/21 04:05 Nucleated RBC % Not Reportable 05/12/21 04:05 Seg Neutrophils # 5.7 K/mm3 (1.8-7.7) 06/21/21 06:45 Seg Neutrophils # Man 6.4 K/mm3 (1.8-7.7) 05/12/21 04:05 Band Neutrophils # 0.1 K/mm3 05/12/21 04:05 Lymphocytes # (Manual) 0.3 K/mm3 (1.2-5.4) L 05/12/21 04:05 Abs React Lymphs (Man) 0.0 K/mm3 05/12/21 04:05 Monocytes # (Manual) 0.1 K/mm3 (0.0-0.8) 05/12/21 04:05 Eosinophils # (Manual) 0.0 K/mm3 (0.0-0.4) 05/12/21 04:05 Basophils # (Manual) 0.0 K/mm3 (0.0-0.1) 05/12/21 04:05 Metamyelocytes # 0.0 K/mm3 05/12/21 04:05 Myelocytes # 0.0 K/mm3 05/12/21 04:05 Promyelocytes # 0.0 K/mm3 05/12/21 04:05 Blast Cells # 0.0 K/mm3 05/12/21 04:05 WBC Morphology Not Reportable 05/12/21 04:05 Hypersegmented Neuts Not Reportable 05/12/21 04:05 Hyposegmented Neuts Not Reportable 05/12/21 04:05 Hypogranular Neuts Not Reportable 05/12/21 04:05 Smudge Cells Not Reportable 05/12/21 04:05 Toxic Granulation Not Reportable 05/12/21 04:05 Toxic Vacuolation Not Reportable 05/12/21 04:05 Dohle Bodies Not Reportable 05/12/21 04:05 Pelger-Huet Anomaly Not Reportable 05/12/21 04:05 Janelle Rods Not Reportable 05/12/21 04:05 Platelet Estimate Consistent w auto 05/12/21 04:05 Clumped Platelets Not Reportable 05/12/21 04:05 Plt Clumps, EDTA Not Reportable 05/12/21 04:05 Large Platelets Not Reportable 05/12/21 04:05 Giant Platelets Not Reportable 05/12/21 04:05 Platelet Satelliting Not Reportable 05/12/21 04:05 Plt Morphology Comment Not Reportable 05/12/21 04:05 RBC Morphology Normal 05/12/21 04:05 Dimorphic RBCs Not Reportable 05/12/21 04:05 Polychromasia Not Reportable 05/12/21 04:05 Hypochromasia Not Reportable 05/12/21 04:05 Poikilocytosis Not Reportable 05/12/21 04:05 Anisocytosis Not Reportable 05/12/21 04:05 Microcytosis Not Reportable 05/12/21 04:05 Macrocytosis Not Reportable 05/12/21 04:05 Spherocytes Not Reportable 05/12/21 04:05 Pappenheimer Bodies Not Reportable 05/12/21 04:05 Sickle Cells Not Reportable 05/12/21 04:05 Target Cells Not Reportable 05/12/21 04:05 Tear Drop Cells Not Reportable 05/12/21 04:05 Ovalocytes Not Reportable 05/12/21 04:05 Helmet Cells Not Reportable 05/12/21 04:05 [place] Bodies Not Reportable 05/12/21 04:05 Larose Rings Not Reportable 05/12/21 04:05 Crow Cells Not Reportable 05/12/21 04:05 Bite Cells Not Reportable 05/12/21 04:05 Crenated Cell Not Reportable 05/12/21 04:05 Elliptocytes Not Reportable 05/12/21 04:05 Acanthocytes (Spur) Not Reportable 05/12/21 04:05 Rouleaux Not Reportable 05/12/21 04:05 Hemoglobin C Crystals Not Reportable 05/12/21 04:05 Schistocytes Not Reportable 05/12/21 04:05 Malaria parasites Not Reportable 05/12/21 04:05 Justin Bodies Not Reportable 05/12/21 04:05 Hem Pathologist Commnt No 05/12/21 04:05 D-Dimer 488.49 ng/mlDDU (0-234) H 06/05/21 05:26 ABG pH 7.403 pH Units (7.350-7.450) 05/14/21 02:23 POC ABG pCO2 45.4 mmHg (32.0-48.0) 05/03/21 04:49 ABG pCO2 50.2 mm Hg 05/14/21 02:23 POC ABG pO2 65.3 mmHg (83-108) L 05/03/21 04:49 ABG pO2 130.3 mm Hg (80.0-90.0) H 05/14/21 02:23 POC ABG HCO3 18.5 05/03/21 04:49 ABG HCO3 30.6 mmol/L (20.0-26.0) H 05/14/21 02:23 ABG O2 Saturation 98.5 % (95.0-99.0) 05/14/21 02:23 ABG O2 Content 17.9 (0.0-44) 05/14/21 02:23 POC ABG Base Excess -8.9 05/03/21 04:49 ABG Base Excess 4.9 mmol/L (-2.0-3.0) H 05/14/21 02:23 ABG Hemoglobin 13.0 gm/dl (12.0-16.0) 05/14/21 02:23 ABG Oxyhemoglobin 87.8 (94-98) L 05/03/21 04:49 ABG Carboxyhemoglobin 1.4 % (0.0-5.0) 05/14/21 02:23 ABG Methemoglobin 0.6 % (0.0-1.5) 05/14/21 02:23 ABG Sodium 133.0 mmol/L (136.0-145.0) L 05/03/21 04:49 ABG Potassium 3.9 mmol/L (3.40-4.50) 05/03/21 04:49 ABG Chloride 97.0 mmol/L (98-107) L 05/03/21 04:49 ABG Glucose 403 mg/dL (65-95) H 05/03/21 04:49 Oxyhemoglobin 96.5 % (95.0-99.0) 05/14/21 02:23 Carboxyhemoglobin 0.6 (0.5-1.5) 05/03/21 04:49 FiO2 90 % 05/14/21 02:23 FiO2 % 100.0 05/03/21 04:49 Sodium 141 mmol/L (137-145) 06/30/21 04:00 Potassium 3.5 mmol/L (3.6-5.0) L 06/30/21 04:00 Chloride 100.3 mmol/L (98-107) 06/30/21 04:00 Carbon Dioxide 28 mmol/L (22-30) 06/30/21 04:00 Anion Gap 16 mmol/L 06/30/21 04:00 BUN 18 mg/dL (7-17) H 06/30/21 04:00 Creatinine 0.3 mg/dL (0.6-1.2) L 06/30/21 04:00 Estimated GFR > 60 ml/min 06/30/21 04:00 BUN/Creatinine Ratio 60 % 06/30/21 04:00 Glucose 111 mg/dL (65-100) H 06/30/21 04:00 POC Glucose 111 mg/dL (70-105) H 07/01/21 07:26 Hemoglobin A1c 8.5 % (4-6) H 04/18/21 07:36 Calcium 9.3 mg/dL (8.4-10.2) 06/30/21 04:00 Phosphorus 3.60 mg/dL (2.5-4.5) 05/06/21 05:00 Magnesium 2.00 mg/dL (1.7-2.3) 05/06/21 05:00 Ferritin 187.7 ng/mL (10.0-200.0) 06/05/21 05:26 Total Bilirubin 0.30 mg/dL (0.1-1.2) 06/28/21 05:43 AST 19 units/L (5-40) 06/28/21 05:43 ALT 63 units/L (7-56) H 06/28/21 05:43 Alkaline Phosphatase 61 units/L (35-129) 06/28/21 05:43 Lactate Dehydrogenase 475 units/L (91-180) H 06/05/21 05:26 C-Reactive Protein 0.10 mg/dL (0.00-1.30) 06/05/21 05:26 Total Protein 6.5 g/dL (6.3-8.2) 06/28/21 05:43 Albumin 3.3 g/dL (3.9-5) L 06/28/21 05:43 Albumin/Globulin Ratio 1.0 % 06/28/21 05:43 Triglycerides < 9 mg/dL (2-149) 05/03/21 04:30 Procalcitonin < 0.05 ng/mL (<0.15) 05/23/21 09:50 Arterial Blood Glucose 403 mg/dL (65-95) H 05/03/21 04:49 Arterial Blood Ionized Calcium 4.9 mg/dL (4.6-5.3) 05/03/21 04:49 Coronavirus (PCR) Positive (Negative) A 06/05/21 08:30 Amos/IV: Voiding Method Bedside Commode Active Medications - Current Medications Current Medications: Generic Name Dose Route Start Last Admin Trade Name Freq PRN Reason Stop Dose Admin Acetaminophen 650 mg 04/16/21 14:00 06/28/21 10:56 Acetaminophen 325 Mg Tab PO 650 mg Q4H PRN Administration Pain MILD(1-3)/Fever >100.5/[place] Albuterol 2.5 mg 04/16/21 13:39 04/21/21 20:39 Albuterol 2.5 Mg/3 Ml Nebu IH 2.5 mg Q4HRT PRN Administration Shortness Of Breath Ascorbic Acid 500 mg 04/24/21 10:00 07/01/21 08:59 Ascorbic Acid 500 Mg Tab PO 500 mg QDAY TUTU Administration Bisacodyl 10 mg 06/10/21 18:00 Bisacodyl 10 Mg Rect Supp [place] QDAY PRN Constipation Cholecalciferol 1,000 unit 04/17/21 10:00 07/01/21 08:59 Cholecalciferol (Vit D3) 1000 Unit (25 Mcg) Tab PO 1,000 unit QDAY TUTU Administration Clonazepam 1 mg 05/29/21 08:06 06/28/21 10:36 Clonazepam 0.5 Mg Tab PO 1 mg Q8H PRN Administration Anxiety Dextrose 50 ml 04/18/21 07:30 04/28/21 09:59 Dextrose 50% In Water (25gm) 50 Ml Syringe IV 50 ml Q30MIN PRN Administration Hypoglycemia Protocol Docusate Sodium 100 mg 04/30/21 10:00 07/01/21 08:59 Docusate Sodium 100 Mg Cap PO 100 mg BID TUTU Administration Enoxaparin Sodium 40 mg 05/19/21 22:00 06/30/21 21:57 Enoxaparin 40 Mg/0.4 Ml Inj SUB-Q 40 mg QDAY@2200 TUTU Administration Protocol Insulin Glargine 15 units 06/25/21 10:00 07/01/21 08:59 Insulin Glargine 100 Units/Ml SUB-Q 15 units DAILY TUTU Administration Insulin Human Lispro 0 unit 05/18/21 12:00 07/01/21 08:13 Insulin Lispro 100 Unit/Ml SUB-Q Not Given ACHS [facility] Protocol Lorazepam 1 mg 05/25/21 14:40 06/11/21 23:55 Lorazepam 2 Mg/Ml Vial IV 1 mg Q6H PRN Administration Agitation Magnesium Hydroxide 30 ml 06/07/21 16:30 06/11/21 11:06 Magnesium Hydroxide (Mom) Oral Liqd Udc PO 30 ml QDAY PRN Administration Constipation Ondansetron HCl 4 mg 04/16/21 14:00 05/30/21 10:07 Ondansetron 4 Mg/2 Ml Inj IV 4 mg Q8H PRN Administration Nausea And Vomiting Prednisone 20 mg 06/26/21 16:00 07/01/21 08:59 Prednisone 20 Mg Tab PO 20 mg QDAY TUTU Administration Senna 17.2 mg 05/02/21 22:00 06/30/21 21:57 Sennosides 8.6 Mg Tab PO 17.2 mg QHS TUTU Administration Sodium Chloride 10 ml 04/16/21 22:00 07/01/21 09:15 Sodium Chloride 0.9% 10 Ml Flush Syringe IV 10 ml BID TUTU Administration Sodium Chloride 10 ml 04/16/21 13:39 05/22/21 15:21 Sodium Chloride 0.9% 10 Ml Flush Syringe IV 10 ml PRN PRN Administration LINE FLUSH Zinc Sulfate 220 mg 04/16/21 22:00 07/01/21 08:59 Zinc Sulfate 220 Mg Cap PO 220 mg BID TUTU Administration Zolpidem Tartrate 10 mg 05/26/21 08:56 06/30/21 21:57 Zolpidem 5 Mg Tab PO 10 mg QHS PRN Administration Insomnia Nutrition/Malnutrition Assess - Dietary Evaluation Nutrition/Malnutrition Findings: Nutrition Notes Start: 04/23/21 07 :41 Freq: Status: Active Protocol: Document 06/04/21 11:07 FABIAN (Rec: 06/04/21 11:07 FABIAN [id number]) Nutrition Notes Initial or Follow up Brief Note Current Diagnosis Respiratory Failure Other Pertinent Diagnosis oral thrush, COVID-19 pneu Current Diet GI soft Subjective/Other Information Pt continues to eat 75-100% of meals. Nutrition Intervention Revisit per MD consult or patient Sign Off request:
--- NOTE | 2021-07-01 11:20 | Progress Note ---
Assessment and Plan 50 y/o female with acute respiratory failure secondary to COVID19 pneumonia. 07/01/21: Will drop steroids to 10mg daily starting tomorrow. Wean for sats >88%. Prone. PT/OT should be seeing now that oxygen requirement is down more. 06/28/21: Continue to wean as tolerated. Will drop steroids down even further next week. Will see PRN over the weekend. 06/26/21: Will drop steroids down to 20 starting tomorrow. Prone. Continue to wean as tolerated. 06/24/21: Continue Pred, will drop to 20 daily tomorrow. Prone if able. Hop eful they can wean FiO2 more. May need to consider increasing flow for a while. 06/21/21: Continue pred at 40, will decrease likely Thursday/Thursday to 20 daily. Prone if able. Continue to wean as tolerated. Prognosis still remains guarded. 06/20/21: Will drop steroids down to 40 today. Proning. Continue to wean FiO2. 06/18/21: Wean Fio2 for sats >88%. Please encourage proning. Drop steroids down to 40 on . 06/14/21: Continue oral steroid therapy. Will do further weaning next week. Wean for sats >88% and prone as tolerated. Will see as needed over the weekend. 06/13/21: Will change to prednisone 60 daily starting tomorrow. Prone if able and wean for sats >88% 06/11/21: no new recs, will change to oral steroids tomorrow, continue to prone if able and wean for sats >88% 06/10/21: Will change to oral steroids on Thursday to begin prolonged taper 06/06/21: Continue to wean as tolerated, will drop steroids on tomorrow. 06/04/21: Clinically no change. Will drop steroids down the end of this week. 05/31/21: Clinically no change. Not eligible for LTACH. Encourage Proning. Will drop steroids down to 40 q8 05/29/21: No acute changes clinically. Still on HFNC but not really able to wean. Continue to encourage proning. Will drop steroids further on Thursday. 05/27/21: No improvement over the weekend but also no worsening. No other strategies to offer. Please continue to encourage patient to prone. I dropped steroids on yesterday. Will wean more later in the week. 05/24/21: No new recs again for today. Will see as needed over the weekend but follow chart peripherally for changes. 05/22/21: No new recs for today. Prognosis remains guarded. 05/21/21: Wean as tolerated. Prone if able. Guarded prognosis 05/20/21: COntinue current level of care. 05/17/21: Prone if possible. Wean FiO2 for sats >88%. Continue scheduled ativan. Prognosis is very very guarded. Unfunded so not a candidate for LTACH 05/16/21: Prone if willing. Wean FIO2 if patient will allow. Anxiety control. Prognosis still remains very guarded. 05/15/21: Not sure if MAR is accurate but may have only gotten one dose of scheduled anixolytic therapy. Continue proning as tolerated, and wean FiO2 and flow for sats >88%. Prognosi remains very very guarded to poor. 05/14/21: Will discontinue the buspar and make the ativan scheduled but will do q6 as oppose to q4 and attempt to leave parameters for nursing when not to give. If anxiety could be controlled, feel that patient could be weaned further. She has no funding so she is not a candidate for LTACH. Prone if possible. Guarded prognosis. This is her day. 05/13/21: Ordered buspar 10 BID to start with to help with anxiety. Please continue to wean FiO2 as tolerated. Will remind nurse that there is PRN ativan available. Continue higher doses of steroids. Prone if able. 05/12/21: Patient may need something longer acting for anxiety. Per chart has not gotten any ativan in days. Would be ok with either buspar or low dose klonopin bid. COntinue higher doses of steroids as patient seems to be responding. Prone if possible. 05/11/21: Continue high doses of steroids and continue to wean for sats >88%. Please encourage proning. 05/10/21: Will continue this dose of steroid at least through the weekend and assess for improvement. will speak with RT about aggressive weaning. Full dose anticoagulation continues. Very very guarded to poor prognosis. 05/09/21: Going to consider increasing steroids to 125q8, maybe as early as tomorrow. continue full dose anticoagulation. 05/08/21: Continue anticoagulation and steroids. Prone if possible. Anxiety control. No objection to CTA if this can happen. Very very guarded prognosis. 05/07/21: Spoke with IMS, not opposed to full dose anticoagulation. If patient goes back on NRB HFNC combo may need to consider restarting PPN again. Encourage proning. Guarded prognosis. 05/06/21: Continue to wean FiO2 and flow for sats >88%. Tolerating diet now so will stop PPN. Continue anxiety control. Continue IV steroids. Would not o bject to transfer to COVID floor if bed available. Not sure why she was titrated back up to 100% from 85 as all sats documented in the RT's notes were acceptable. Same for under vital signs as well. 05/03/21: Set back last night from yesterday. Continue bipap therapy for now and attempt HFNC maybe later this afternoon. Continue to use PRN ativan but may need to schedule as she likely took off mask from anxiety. Continue IV steroids. Hold on transfer to [facility] Floor. 05/02/21: Continue to wean FiO2 as tolerated for sats >88%. Will continue bipap at night. Patient has no funding so not a candidate for LTACH. Given that she has been stable and not requiring the combo of HFNC and NRB, will consider moving to [facility] floor. 05/01/21: Continue to wean FiO2 for sats >88%. A sat of 90 is more than acceptable and oxygen should not be increased for this unless patient desats and remains at a sat lower than 88. Bipap at night to give some form of relief and HFNC during the day. Currently on just this alone which is improvement. Ok with daily diuresis but must monitor renal function and BP closely. She was over diuresed last week and we ended up giving fluid back. Prognosis remains guarded. 04/30/21: Will start CLinimix today for nutritional support, without electrolytes. Check labs in am. Prone if able. Continue precedx for anxiety. Very very guarded prognosis. Attempting our best to not intubate. 04/29/21: Continue precedex. Continue IV solumedrol. Prone if able. Guarded prognosis. 04/28/21: Continue Precedex. Picc team attempting to place line now. Stable on Bipap. Ordered steroids IV solumedrol to start today. Prognosis remains guarded, still at very high risk for intubation. 04/27/21: Hypotension improving/improved. Hold on any further lasix dosing. Continue precedex to help with anxeity. later today please attempt HFNC with NRB if needed. Attempt to feed if possible. Steroids end today, please order solumedrol 40q8 to start tomorrow (04/28/21). guarded prognosis. 04/26/21: Hypotension today, most likely from precedex use and diuresis that I did the last several days. Will bolus again today. Consider midodrine if BP does not respond. 04/25/21: Lasix again today. Keep PRN ativan for now. Hold on precedex for now. Guarded prognosis. Labs ordered for tomorrow. 04/24/21: Lasix today. Will also start patient on low dose PRN ativan. If this does not help will then try precedex. Guarded prognosis. 04/23/21: Prone as tolerated. No lasix today. Continue decadron. Guarded prognosis. High risk for intubation and high mortality with intubation. 04/19/21: Prone as tolerated during the day and sleep prone at night. Continue IV remdesivir and steroids. Did get actemra. Guarded prognosis. 1. Daily net negative state 2. Prone if possible 3. IV remdesivir. 4. Should be a candidate for Actemra 5. IV steroids 6. Guarded Prognosis Subjective Date of service: 07/01/21 Principal diagnosis: Covid-19 Interval history: On 50%. Had gotten to as low as 45% but appears this was increased back to 50 last night. no documentation as to why. Patient did some proning over the weekend. Objective Vital Signs - 12hr 07/01/21 07/01/21 07/01/21 05:31 09:49 11:06 Temperature 98.0 F 98.2 F Pulse Rate 98 H 113 H Respiratory 20 18 Rate Blood Pressure 137/76 131/80 O2 Sat by Pulse 89 92 92 Oximetry 07/01/21 11:07 Temperature Pulse Rate 115 H Respiratory Rate Blood Pressure O2 Sat by Pulse 91 Oximetry Constitutional: no acute distress, alert Eyes: non-icteric ENT: oropharynx moist Neck: supple Effort: normal Ascultation: Bilateral: diminished breath sounds Cardiovascular: regular rate and rhythm Gastrointestinal: normoactive bowel sounds, soft, non-tender, non-distended Integumentary: normal Extremities: no cyanosis, no edema, pink and warm Neurologic: normal mental status, non-focal exam, pupils equal and round, CN II- XII normal Psychiatric: mood appropriate, affect normal CBC and BMP: 06/28/21 05:43 06/30/21 04:00 ABG, PT/INR, D-dimer: ABG ABG pH 7.403 pH Units (7.350-7.450) 05/14/21 02:23 POC ABG pCO2 45.4 mmHg (32.0-48.0) 05/03/21 04:49 ABG pCO2 50.2 mm Hg 05/14/21 02:23 POC ABG pO2 65.3 mmHg (83-108) L 05/03/21 04:49 ABG pO2 130.3 mm Hg (80.0-90.0) H 05/14/21 02:23 POC ABG HCO3 18.5 05/03/21 04:49 ABG O2 Saturation 98.5 % (95.0-99.0) 05/14/21 02:23 PT/INR, D-dimer D-Dimer 488.49 ng/mlDDU (0-234) H 06/05/21 05:26 Abnormal lab findings: Abnormal Labs 04/16/21 04/16/21 04/16/21 11:42 11:42 11:42 WBC MCH MCHC RDW 16.1 H Lymph % (Auto) 7.8 L Lymph # (Auto) 0.8 L Baso # (Auto) Seg Neutrophils % 87.7 H Seg Neuts % (Manual) Lymphocytes % (Manual) Seg Neutrophils # 8.5 H Seg Neutrophils # Man Lymphocytes # (Manual) D-Dimer 338.70 H ABG pH POC ABG pO2 ABG pO2 ABG HCO3 ABG O2 Saturation ABG Base Excess ABG Oxyhemoglobin ABG Sodium ABG Chloride ABG Glucose Oxyhemoglobin Carboxyhemoglobin Sodium Potassium Chloride Carbon Dioxide BUN Creatinine Glucose 194 H POC Glucose Hemoglobin A1c Ferritin AST ALT Alkaline Phosphatase Lactate Dehydrogenase C-Reactive Protein Total Protein 8.4 H Albumin 3.8 L Arterial Blood Glucose Coronavirus (PCR) 04/16/21 04/16/21 04/17/21 11:42 11:42 03:50 WBC MCH MCHC RDW 16.0 H Lymph % (Auto) 7.7 L Lymph # (Auto) 0.6 L Baso # (Auto) Seg Neutrophils % 89.8 H Seg Neuts % (Manual) Lymphocytes % (Manual) Seg Neutrophils # Seg Neutrophils # Man Lymphocytes # (Manual) D-Dimer ABG pH POC ABG pO2 ABG pO2 ABG HCO3 ABG O2 Saturation ABG Base Excess ABG Oxyhemoglobin ABG Sodium ABG Chloride ABG Glucose Oxyhemoglobin Carboxyhemoglobin Sodium Potassium Chloride Carbon Dioxide BUN Creatinine Glucose 195 H POC Glucose Hemoglobin A1c Ferritin 254.3 H AST ALT Alkaline Phosphatase Lactate Dehydrogenase 359 H C-Reactive Protein 15.20 H Total Protein Albumin Arterial Blood Glucose Coronavirus (PCR) 04/17/21 04/17/21 04/17/21 03:50 08:26 08:26 WBC MCH MCHC RDW Lymph % (Auto) Lymph # (Auto) Baso # (Auto) Seg Neutrophils % Seg Neuts % (Manual) Lymphocytes % (Manual) Seg Neutrophils # Seg Neutrophils # Man Lymphocytes # (Manual) D-Dimer 262.48 H ABG pH POC ABG pO2 ABG pO2 ABG HCO3 ABG O2 Saturation ABG Base Excess ABG Oxyhemoglobin ABG Sodium ABG Chloride ABG Glucose Oxyhemoglobin Carboxyhemoglobin Sodium Potassium Chloride Carbon Dioxide BUN 20 H Creatinine 0.5 L Glucose 249 H 225 H POC Glucose Hemoglobin A1c Ferritin AST ALT Alkaline Phosphatase Lactate Dehydrogenase 338 H C-Reactive Protein 17.20 H Total Protein Albumin 3.2 L Arterial Blood Glucose Coronavirus (PCR) 04/17/21 04/17/21 04/17/21 08:26 15:04 Unknown WBC MCH MCHC RDW Lymph % (Auto) Lymph # (Auto) Baso # (Auto) Seg Neutrophils % Seg Neuts % (Manual) Lymphocytes % (Manual) Seg Neutrophils # Seg Neutrophils # Man Lymphocytes # (Manual) D-Dimer ABG pH POC ABG pO2 ABG pO2 ABG HCO3 ABG O2 Saturation ABG Base Excess ABG Oxyhemoglobin ABG Sodium ABG Chloride ABG Glucose Oxyhemoglobin Carboxyhemoglobin Sodium Potassium Chloride Carbon Dioxide BUN 20 H Creatinine 0.5 L Glucose 246 H POC Glucose Hemoglobin A1c Ferritin 392.0 H AST ALT Alkaline Phosphatase Lactate Dehydrogenase C-Reactive Protein Total Protein 8.3 H Albumin 3.1 L Arterial Blood Glucose Coronavirus (PCR) Positive A 04/18/21 04/18/21 04/18/21 05:06 05:06 07:36 WBC 11.6 H MCH MCHC RDW 16.1 H Lymph % (Auto) Lymph # (Auto) Baso # (Auto) Seg Neutrophils % Seg Neuts % (Manual) Lymphocytes % (Manual) Seg Neutrophils # Seg Neutrophils # Man Lymphocytes # (Manual) D-Dimer ABG pH POC ABG pO2 ABG pO2 ABG HCO3 ABG O2 Saturation ABG Base Excess ABG Oxyhemoglobin ABG Sodium ABG Chloride ABG Glucose Oxyhemoglobin Carboxyhemoglobin Sodium Potassium 5.2 H Chloride Carbon Dioxide BUN 22 H Creatinine 0.5 L Glucose 315 H POC Glucose Hemoglobin A1c 8.5 H Ferritin AST ALT Alkaline Phosphatase Lactate Dehydrogenase C-Reactive Protein Total Protein Albumin 3.3 L Arterial Blood Glucose Coronavirus (PCR) 04/18/21 04/18/21 04/18/21 11:59 16:43 23:24 WBC MCH MCHC RDW Lymph % (Auto) Lymph # (Auto) Baso # (Auto) Seg Neutrophils % Seg Neuts % (Manual) Lymphocytes % (Manual) Seg Neutrophils # Seg Neutrophils # Man Lymphocytes # (Manual) D-Dimer ABG pH POC ABG pO2 ABG pO2 ABG HCO3 ABG O2 Saturation ABG Base Excess ABG Oxyhemoglobin ABG Sodium ABG Chloride ABG Glucose Oxyhemoglobin Carboxyhemoglobin Sodium Potassium Chloride Carbon Dioxide BUN Creatinine Glucose POC Glucose 284 H 273 H 290 H Hemoglobin A1c Ferritin AST ALT Alkaline Phosphatase Lactate Dehydrogenase C-Reactive Protein Total Protein Albumin Arterial Blood Glucose Coronavirus (PCR) 04/19/21 04/19/21 04/19/21 04:19 04:19 08:10 WBC MCH MCHC RDW 15.7 H Lymph % (Auto) Lymph # (Auto) Baso # (Auto) Seg Neutrophils % Seg Neuts % (Manual) Lymphocytes % (Manual) Seg Neutrophils # Seg Neutrophils # Man Lymphocytes # (Manual) D-Dimer ABG pH POC ABG pO2 ABG pO2 ABG HCO3 ABG O2 Saturation ABG Base Excess ABG Oxyhemoglobin ABG Sodium ABG Chloride ABG Glucose Oxyhemoglobin Carboxyhemoglobin Sodium Potassium Chloride Carbon Dioxide BUN 27 H Creatinine 0.4 L Glucose 184 H POC Glucose 194 H Hemoglobin A1c Ferritin AST ALT Alkaline Phosphatase Lactate Dehydrogenase C-Reactive Protein Total Protein Albumin 3.1 L Arterial Blood Glucose Coronavirus (PCR) 04/19/21 04/19/21 04/19/21 11:38 16:25 22:04 WBC MCH MCHC RDW Lymph % (Auto) Lymph # (Auto) Baso # (Auto) Seg Neutrophils % Seg Neuts % (Manual) Lymphocytes % (Manual) Seg Neutrophils # Seg Neutrophils # Man Lymphocytes # (Manual) D-Dimer ABG pH POC ABG pO2 ABG pO2 ABG HCO3 ABG O2 Saturation ABG Base Excess ABG Oxyhemoglobin ABG Sodium ABG Chloride ABG Glucose Oxyhemoglobin Carboxyhemoglobin Sodium Potassium Chloride Carbon Dioxide BUN Creatinine Glucose POC Glucose 224 H 297 H 251 H Hemoglobin A1c Ferritin AST ALT Alkaline Phosphatase Lactate Dehydrogenase C-Reactive Protein Total Protein Albumin Arterial Blood Glucose Coronavirus (PCR) 04/20/21 04/20/21 04/20/21 05:28 08:43 16:21 WBC MCH MCHC RDW Lymph % (Auto) Lymph # (Auto) Baso # (Auto) Seg Neutrophils % Seg Neuts % (Manual) Lymphocytes % (Manual) Seg Neutrophils # Seg Neutrophils # Man Lymphocytes # (Manual) D-Dimer ABG pH POC ABG pO2 ABG pO2 ABG HCO3 ABG O2 Saturation ABG Base Excess ABG Oxyhemoglobin ABG Sodium ABG Chloride ABG Glucose Oxyhemoglobin Carboxyhemoglobin Sodium Potassium Chloride Carbon Dioxide BUN 27 H Creatinine Glucose 192 H POC Glucose 173 H 253 H Hemoglobin A1c Ferritin AST ALT Alkaline Phosphatase Lactate Dehydrogenase C-Reactive Protein Total Protein Albumin 3.0 L Arterial Blood Glucose Coronavirus (PCR) 04/21/21 04/21/21 04/21/21 07:58 12:05 16:08 WBC MCH MCHC RDW Lymph % (Auto) Lymph # (Auto) Baso # (Auto) Seg Neutrophils % Seg Neuts % (Manual) Lymphocytes % (Manual) Seg Neutrophils # Seg Neutrophils # Man Lymphocytes # (Manual) D-Dimer ABG pH POC ABG pO2 ABG pO2 ABG HCO3 ABG O2 Saturation ABG Base Excess ABG Oxyhemoglobin ABG Sodium ABG Chloride ABG Glucose Oxyhemoglobin Carboxyhemoglobin Sodium Potassium Chloride Carbon Dioxide BUN Creatinine Glucose POC Glucose 140 H 252 H 214 H Hemoglobin A1c Ferritin AST ALT Alkaline Phosphatase Lactate Dehydrogenase C-Reactive Protein Total Protein Albumin Arterial Blood Glucose Coronavirus (PCR) 04/21/21 04/22/21 04/22/21 21:42 08:37 12:01 WBC MCH MCHC RDW Lymph % (Auto) Lymph # (Auto) Baso # (Auto) Seg Neutrophils % Seg Neuts % (Manual) Lymphocytes % (Manual) Seg Neutrophils # Seg Neutrophils # Man Lymphocytes # (Manual) D-Dimer ABG pH 7.457 H POC ABG pO2 49.4 L ABG pO2 ABG HCO3 ABG O2 Saturation ABG Base Excess ABG Oxyhemoglobin 85.6 L ABG Sodium ABG Chloride ABG Glucose 121 H Oxyhemoglobin Carboxyhemoglobin 0.3 L Sodium Potassium Chloride Carbon Dioxide BUN Creatinine Glucose POC Glucose 162 H 227 H Hemoglobin A1c Ferritin AST ALT Alkaline Phosphatase Lactate Dehydrogenase C-Reactive Protein Total Protein Albumin Arterial Blood Glucose 121 H Coronavirus (PCR) 04/22/21 04/22/21 04/23/21 16:26 22:23 04:52 WBC MCH MCHC RDW 15.7 H Lymph % (Auto) Lymph # (Auto) Baso # (Auto) Seg Neutrophils % Seg Neuts % (Manual) Lymphocytes % (Manual) Seg Neutrophils # Seg Neutrophils # Man Lymphocytes # (Manual) D-Dimer ABG pH POC ABG pO2 ABG pO2 ABG HCO3 ABG O2 Saturation ABG Base Excess ABG Oxyhemoglobin ABG Sodium ABG Chloride ABG Glucose Oxyhemoglobin Carboxyhemoglobin Sodium Potassium Chloride Carbon Dioxide BUN Creatinine Glucose POC Glucose 200 H 136 H Hemoglobin A1c Ferritin AST ALT Alkaline Phosphatase Lactate Dehydrogenase C-Reactive Protein Total Protein Albumin Arterial Blood Glucose Coronavirus (PCR) 04/23/21 04/23/21 04/23/21 04:52 12:06 17:41 WBC MCH MCHC RDW Lymph % (Auto) Lymph # (Auto) Baso # (Auto) Seg Neutrophils % Seg Neuts % (Manual) Lymphocytes % (Manual) Seg Neutrophils # Seg Neutrophils # Man Lymphocytes # (Manual) D-Dimer ABG pH POC ABG pO2 ABG pO2 ABG HCO3 ABG O2 Saturation ABG Base Excess ABG Oxyhemoglobin ABG Sodium ABG Chloride ABG Glucose Oxyhemoglobin Carboxyhemoglobin Sodium 136 L Potassium Chloride 97.7 L Carbon Dioxide BUN 23 H Creatinine Glucose 101 H POC Glucose 202 H 169 H Hemoglobin A1c Ferritin AST 46 H ALT Alkaline Phosphatase Lactate Dehydrogenase C-Reactive Protein Total Protein Albumin 3.3 L Arterial Blood Glucose Coronavirus (PCR) 04/23/21 04/24/21 04/24/21 23:08 05:17 08:38 WBC MCH MCHC RDW Lymph % (Auto) Lymph # (Auto) Baso # (Auto) Seg Neutrophils % Seg Neuts % (Manual) Lymphocytes % (Manual) Seg Neutrophils # Seg Neutrophils # Man Lymphocytes # (Manual) D-Dimer ABG pH POC ABG pO2 ABG pO2 ABG HCO3 ABG O2 Saturation ABG Base Excess ABG Oxyhemoglobin ABG Sodium ABG Chloride ABG Glucose Oxyhemoglobin Carboxyhemoglobin Sodium Potassium Chloride Carbon Dioxide BUN Creatinine Glucose POC Glucose 111 H 108 H 126 H Hemoglobin A1c Ferritin AST ALT Alkaline Phosphatase Lactate Dehydrogenase C-Reactive Protein Total Protein Albumin Arterial Blood Glucose Coronavirus (PCR) 04/24/21 04/24/21 04/24/21 11:54 17:57 21:23 WBC MCH MCHC RDW Lymph % (Auto) Lymph # (Auto) Baso # (Auto) Seg Neutrophils % Seg Neuts % (Manual) Lymphocytes % (Manual) Seg Neutrophils # Seg Neutrophils # Man Lymphocytes # (Manual) D-Dimer ABG pH POC ABG pO2 ABG pO2 ABG HCO3 ABG O2 Saturation ABG Base Excess ABG Oxyhemoglobin ABG Sodium ABG Chloride ABG Glucose Oxyhemoglobin Carboxyhemoglobin Sodium Potassium Chloride Carbon Dioxide BUN Creatinine Glucose POC Glucose 147 H 177 H 138 H Hemoglobin A1c Ferritin AST ALT Alkaline Phosphatase Lactate Dehydrogenase C-Reactive Protein Total Protein Albumin Arterial Blood Glucose Coronavirus (PCR) 04/25/21 04/25/21 04/25/21 07:06 11:23 15:43 WBC MCH MCHC RDW Lymph % (Auto) Lymph # (Auto) Baso # (Auto) Seg Neutrophils % Seg Neuts % (Manual) Lymphocytes % (Manual) Seg Neutrophils # Seg Neutrophils # Man Lymphocytes # (Manual) D-Dimer ABG pH POC ABG pO2 ABG pO2 ABG HCO3 ABG O2 Saturation ABG Base Excess ABG Oxyhemoglobin ABG Sodium ABG Chloride ABG Glucose Oxyhemoglobin Carboxyhemoglobin Sodium Potassium Chloride Carbon Dioxide BUN Creatinine Glucose POC Glucose 147 H 169 H 227 H Hemoglobin A1c Ferritin AST ALT Alkaline Phosphatase Lactate Dehydrogenase C-Reactive Protein Total Protein Albumin Arterial Blood Glucose Coronavirus (PCR) 04/25/21 04/26/21 04/26/21 21:22 02:45 05:15 WBC MCH MCHC RDW Lymph % (Auto) Lymph # (Auto) Baso # (Auto) Seg Neutrophils % Seg Neuts % (Manual) Lymphocytes % (Manual) Seg Neutrophils # Seg Neutrophils # Man Lymphocytes # (Manual) D-Dimer ABG pH POC ABG pO2 70.7 L ABG pO2 ABG HCO3 ABG O2 Saturation ABG Base Excess ABG Oxyhemoglobin 93.0 L ABG Sodium 132.7 L ABG Chloride ABG Glucose 115 H Oxyhemoglobin Carboxyhemoglobin Sodium Potassium Chloride 95.8 L Carbon Dioxide 32 H BUN 20 H Creatinine Glucose 102 H POC Glucose 196 H Hemoglobin A1c Ferritin AST ALT Alkaline Phosphatase Lactate Dehydrogenase C-Reactive Protein Total Protein Albumin Arterial Blood Glucose 115 H Coronavirus (PCR) 04/26/21 04/26/21 04/26/21 11:49 16:09 21:07 WBC MCH MCHC RDW Lymph % (Auto) Lymph # (Auto) Baso # (Auto) Seg Neutrophils % Seg Neuts % (Manual) Lymphocytes % (Manual) Seg Neutrophils # Seg Neutrophils # Man Lymphocytes # (Manual) D-Dimer ABG pH POC ABG pO2 ABG pO2 ABG HCO3 ABG O2 Saturation ABG Base Excess ABG Oxyhemoglobin ABG Sodium ABG Chloride ABG Glucose Oxyhemoglobin Carboxyhemoglobin Sodium Potassium Chloride Carbon Dioxide BUN Creatinine Glucose POC Glucose 114 H 188 H 136 H Hemoglobin A1c Ferritin AST ALT Alkaline Phosphatase Lactate Dehydrogenase C-Reactive Protein Total Protein Albumin Arterial Blood Glucose Coronavirus (PCR) 04/27/21 04/27/21 04/28/21 17:34 22:12 08:26 WBC MCH MCHC RDW Lymph % (Auto) Lymph # (Auto) Baso # (Auto) Seg Neutrophils % Seg Neuts % (Manual) Lymphocytes % (Manual) Seg Neutrophils # Seg Neutrophils # Man Lymphocytes # (Manual) D-Dimer ABG pH POC ABG pO2 ABG pO2 ABG HCO3 ABG O2 Saturation ABG Base Excess ABG Oxyhemoglobin ABG Sodium ABG Chloride ABG Glucose Oxyhemoglobin Carboxyhemoglobin Sodium Potassium Chloride Carbon Dioxide BUN Creatinine Glucose POC Glucose 128 H 159 H 69 L Hemoglobin A1c Ferritin AST ALT Alkaline Phosphatase Lactate Dehydrogenase C-Reactive Protein Total Protein Albumin Arterial Blood Glucose Coronavirus (PCR) 04/28/21 04/28/21 04/29/21 12:22 21:11 06:05 WBC MCH MCHC RDW Lymph % (Auto) Lymph # (Auto) Baso # (Auto) Seg Neutrophils % Seg Neuts % (Manual) Lymphocytes % (Manual) Seg Neutrophils # Seg Neutrophils # Man Lymphocytes # (Manual) D-Dimer ABG pH POC ABG pO2 ABG pO2 ABG HCO3 ABG O2 Saturation ABG Base Excess ABG Oxyhemoglobin ABG Sodium ABG Chloride ABG Glucose Oxyhemoglobin Carboxyhemoglobin Sodium 132 L Potassium Chloride 94.4 L Carbon Dioxide BUN Creatinine 0.2 L D Glucose 140 H POC Glucose 141 H 171 H Hemoglobin A1c Ferritin AST ALT Alkaline Phosphatase Lactate Dehydrogenase C-Reactive Protein Total Protein Albumin Arterial Blood Glucose Coronavirus (PCR) 04/29/21 04/29/21 04/29/21 06:05 07:24 11:36 WBC MCH MCHC 35 H RDW 15.9 H Lymph % (Auto) Lymph # (Auto) Baso # (Auto) Seg Neutrophils % Seg Neuts % (Manual) Lymphocytes % (Manual) Seg Neutrophils # Seg Neutrophils # Man Lymphocytes # (Manual) D-Dimer ABG pH POC ABG pO2 ABG pO2 ABG HCO3 ABG O2 Saturation ABG Base Excess ABG Oxyhemoglobin ABG Sodium ABG Chloride ABG Glucose Oxyhemoglobin Carboxyhemoglobin Sodium Potassium Chloride Carbon Dioxide BUN Creatinine Glucose POC Glucose 141 H 220 H Hemoglobin A1c Ferritin AST ALT Alkaline Phosphatase Lactate Dehydrogenase C-Reactive Protein Total Protein Albumin Arterial Blood Glucose Coronavirus (PCR) 04/29/21 04/29/21 04/29/21 14:23 15:30 17:06 WBC MCH MCHC RDW Lymph % (Auto) Lymph # (Auto) Baso # (Auto) Seg Neutrophils % Seg Neuts % (Manual) Lymphocytes % (Manual) Seg Neutrophils # Seg Neutrophils # Man Lymphocytes # (Manual) D-Dimer ABG pH POC ABG pO2 ABG pO2 52.6 L ABG HCO3 ABG O2 Saturation 86.4 L ABG Base Excess ABG Oxyhemoglobin ABG Sodium ABG Chloride ABG Glucose Oxyhemoglobin 84.6 L Carboxyhemoglobin Sodium Potassium Chloride Carbon Dioxide BUN Creatinine Glucose POC Glucose 173 H 158 H Hemoglobin A1c Ferritin AST ALT Alkaline Phosphatase Lactate Dehydrogenase C-Reactive Protein Total Protein Albumin Arterial Blood Glucose Coronavirus (PCR) 04/29/21 04/30/21 04/30/21 21:27 07:16 08:00 WBC MCH MCHC RDW 16.1 H Lymph % (Auto) Lymph # (Auto) Baso # (Auto) Seg Neutrophils % Seg Neuts % (Manual) Lymphocytes % (Manual) Seg Neutrophils # Seg Neutrophils # Man Lymphocytes # (Manual) D-Dimer ABG pH POC ABG pO2 ABG pO2 ABG HCO3 ABG O2 Saturation ABG Base Excess ABG Oxyhemoglobin ABG Sodium ABG Chloride ABG Glucose Oxyhemoglobin Carboxyhemoglobin Sodium Potassium Chloride Carbon Dioxide BUN Creatinine Glucose POC Glucose 244 H 175 H Hemoglobin A1c Ferritin AST ALT Alkaline Phosphatase Lactate Dehydrogenase C-Reactive Protein Total Protein Albumin Arterial Blood Glucose Coronavirus (PCR) 04/30/21 04/30/21 04/30/21 08:00 08:00 11:03 WBC MCH MCHC RDW Lymph % (Auto) Lymph # (Auto) Baso # (Auto) Seg Neutrophils % Seg Neuts % (Manual) Lymphocytes % (Manual) Seg Neutrophils # Seg Neutrophils # Man Lymphocytes # (Manual) D-Dimer 1796.87 H ABG pH POC ABG pO2 ABG pO2 ABG HCO3 ABG O2 Saturation ABG Base Excess ABG Oxyhemoglobin ABG Sodium ABG Chloride ABG Glucose Oxyhemoglobin Carboxyhemoglobin Sodium 135 L Potassium Chloride 96.3 L Carbon Dioxide BUN Creatinine 0.2 L Glucose 153 H POC Glucose 183 H Hemoglobin A1c Ferritin AST 41 H ALT 76 H Alkaline Phosphatase 160 H Lactate Dehydrogenase 522 H C-Reactive Protein Total Protein 6.1 L Albumin 3.1 L Arterial Blood Glucose Coronavirus (PCR) 04/30/21 04/30/21 05/01/21 17:04 22:17 05:39 WBC MCH MCHC RDW Lymph % (Auto) Lymph # (Auto) Baso # (Auto) Seg Neutrophils % Seg Neuts % (Manual) Lymphocytes % (Manual) Seg Neutrophils # Seg Neutrophils # Man Lymphocytes # (Manual) D-Dimer ABG pH POC ABG pO2 ABG pO2 ABG HCO3 ABG O2 Saturation ABG Base Excess ABG Oxyhemoglobin ABG Sodium ABG Chloride ABG Glucose Oxyhemoglobin Carboxyhemoglobin Sodium 133 L Potassium Chloride 92.1 L Carbon Dioxide BUN 24 H Creatinine 0.4 L D Glucose 269 H POC Glucose 167 H 208 H Hemoglobin A1c Ferritin AST ALT 66 H Alkaline Phosphatase 142 H Lactate Dehydrogenase C-Reactive Protein Total Protein Albumin 3.2 L Arterial Blood Glucose Coronavirus (PCR) 05/01/21 05/01/21 05/01/21 05:39 05:39 07:45 WBC MCH MCHC RDW 16.0 H Lymph % (Auto) Lymph # (Auto) Baso # (Auto) Seg Neutrophils % Seg Neuts % (Manual) Lymphocytes % (Manual) Seg Neutrophils # Seg Neutrophils # Man Lymphocytes # (Manual) D-Dimer 3984.95 H ABG pH POC ABG pO2 ABG pO2 ABG HCO3 ABG O2 Saturation ABG Base Excess ABG Oxyhemoglobin ABG Sodium ABG Chloride ABG Glucose Oxyhemoglobin Carboxyhemoglobin Sodium Potassium Chloride Carbon Dioxide BUN Creatinine Glucose POC Glucose 229 H Hemoglobin A1c Ferritin AST ALT Alkaline Phosphatase Lactate Dehydrogenase C-Reactive Protein Total Protein Albumin Arterial Blood Glucose Coronavirus (PCR) 05/01/21 05/01/21 05/01/21 12:10 15:46 21:06 WBC MCH MCHC RDW Lymph % (Auto) Lymph # (Auto) Baso # (Auto) Seg Neutrophils % Seg Neuts % (Manual) Lymphocytes % (Manual) Seg Neutrophils # Seg Neutrophils # Man Lymphocytes # (Manual) D-Dimer ABG pH POC ABG pO2 ABG pO2 ABG HCO3 ABG O2 Saturation ABG Base Excess ABG Oxyhemoglobin ABG Sodium ABG Chloride ABG Glucose Oxyhemoglobin Carboxyhemoglobin Sodium Potassium Chloride Carbon Dioxide BUN Creatinine Glucose POC Glucose 296 H 279 H 232 H Hemoglobin A1c Ferritin AST ALT Alkaline Phosphatase Lactate Dehydrogenase C-Reactive Protein Total Protein Albumin Arterial Blood Glucose Coronavirus (PCR) 05/02/21 05/02/21 05/02/21 04:55 04:55 04:55 WBC MCH MCHC RDW 16.1 H Lymph % (Auto) Lymph # (Auto) Baso # (Auto) Seg Neutrophils % Seg Neuts % (Manual) Lymphocytes % (Manual) Seg Neutrophils # Seg Neutrophils # Man Lymphocytes # (Manual) D-Dimer 1401.08 H ABG pH POC ABG pO2 ABG pO2 ABG HCO3 ABG O2 Saturation ABG Base Excess ABG Oxyhemoglobin ABG Sodium ABG Chloride ABG Glucose Oxyhemoglobin Carboxyhemoglobin Sodium 131 L Potassium Chloride 95.5 L Carbon Dioxide BUN 20 H Creatinine 0.3 L Glucose 288 H POC Glucose Hemoglobin A1c Ferritin AST ALT Alkaline Phosphatase Lactate Dehydrogenase C-Reactive Protein Total Protein 6.0 L Albumin 3.1 L Arterial Blood Glucose Coronavirus (PCR) 05/02/21 05/02/21 05/02/21 07:53 11:45 15:25 WBC MCH MCHC RDW Lymph % (Auto) Lymph # (Auto) Baso # (Auto) Seg Neutrophils % Seg Neuts % (Manual) Lymphocytes % (Manual) Seg Neutrophils # Seg Neutrophils # Man Lymphocytes # (Manual) D-Dimer ABG pH POC ABG pO2 ABG pO2 ABG HCO3 ABG O2 Saturation ABG Base Excess ABG Oxyhemoglobin ABG Sodium ABG Chloride ABG Glucose Oxyhemoglobin Carboxyhemoglobin Sodium Potassium Chloride Carbon Dioxide BUN Creatinine Glucose POC Glucose 180 H 228 H 275 H Hemoglobin A1c Ferritin AST ALT Alkaline Phosphatase Lactate Dehydrogenase C-Reactive Protein Total Protein Albumin Arterial Blood Glucose Coronavirus (PCR) 05/02/21 05/03/21 05/03/21 22:56 04:30 04:49 WBC MCH MCHC RDW Lymph % (Auto) Lymph # (Auto) Baso # (Auto) Seg Neutrophils % Seg Neuts % (Manual) Lymphocytes % (Manual) Seg Neutrophils # Seg Neutrophils # Man Lymphocytes # (Manual) D-Dimer ABG pH 7.229 L POC ABG pO2 65.3 L ABG pO2 ABG HCO3 ABG O2 Saturation ABG Base Excess ABG Oxyhemoglobin 87.8 L ABG Sodium 133.0 L ABG Chloride 97.0 L ABG Glucose 403 H Oxyhemoglobin Carboxyhemoglobin Sodium 130 L Potassium Chloride 94.9 L Carbon Dioxide BUN 20 H Creatinine 0.5 L D Glucose 359 H POC Glucose 293 H Hemoglobin A1c Ferritin AST 54 H ALT 75 H Alkaline Phosphatase 138 H Lactate Dehydrogenase C-Reactive Protein Total Protein Albumin 3.6 L Arterial Blood Glucose 403 H Coronavirus (PCR) 05/03/21 05/03/21 05/03/21 05:27 11:26 17:57 WBC MCH MCHC RDW Lymph % (Auto) Lymph # (Auto) Baso # (Auto) Seg Neutrophils % Seg Neuts % (Manual) Lymphocytes % (Manual) Seg Neutrophils # Seg Neutrophils # Man Lymphocytes # (Manual) D-Dimer ABG pH POC ABG pO2 ABG pO2 ABG HCO3 ABG O2 Saturation ABG Base Excess ABG Oxyhemoglobin ABG Sodium ABG Chloride ABG Glucose Oxyhemoglobin Carboxyhemoglobin Sodium Potassium Chloride Carbon Dioxide BUN Creatinine Glucose POC Glucose 361 H 297 H 226 H Hemoglobin A1c Ferritin AST ALT Alkaline Phosphatase Lactate Dehydrogenase C-Reactive Protein Total Protein Albumin Arterial Blood Glucose Coronavirus (PCR) 05/03/21 05/04/21 05/04/21 23:12 05:12 07:30 WBC MCH MCHC RDW Lymph % (Auto) Lymph # (Auto) Baso # (Auto) Seg Neutrophils % Seg Neuts % (Manual) Lymphocytes % (Manual) Seg Neutrophils # Seg Neutrophils # Man Lymphocytes # (Manual) D-Dimer ABG pH POC ABG pO2 ABG pO2 ABG HCO3 ABG O2 Saturation ABG Base Excess ABG Oxyhemoglobin ABG Sodium ABG Chloride ABG Glucose Oxyhemoglobin Carboxyhemoglobin Sodium Potassium Chloride Carbon Dioxide BUN Creatinine Glucose POC Glucose 282 H 285 H 254 H Hemoglobin A1c Ferritin AST ALT Alkaline Phosphatase Lactate Dehydrogenase C-Reactive Protein Total Protein Albumin Arterial Blood Glucose Coronavirus (PCR) 05/04/21 05/04/21 05/04/21 08:58 11:45 16:07 WBC MCH MCHC RDW Lymph % (Auto) Lymph # (Auto) Baso # (Auto) Seg Neutrophils % Seg Neuts % (Manual) Lymphocytes % (Manual) Seg Neutrophils # Seg Neutrophils # Man Lymphocytes # (Manual) D-Dimer ABG pH POC ABG pO2 ABG pO2 ABG HCO3 ABG O2 Saturation ABG Base Excess ABG Oxyhemoglobin ABG Sodium ABG Chloride ABG Glucose Oxyhemoglobin Carboxyhemoglobin Sodium 134 L Potassium Chloride Carbon Dioxide BUN 20 H Creatinine 0.3 L Glucose 267 H POC Glucose 244 H 297 H Hemoglobin A1c Ferritin AST ALT Alkaline Phosphatase Lactate Dehydrogenase C-Reactive Protein Total Protein 6.0 L Albumin 3.2 L Arterial Blood Glucose Coronavirus (PCR) 05/04/21 05/05/21 05/05/21 23:32 05:00 05:13 WBC MCH MCHC RDW Lymph % (Auto) Lymph # (Auto) Baso # (Auto) Seg Neutrophils % Seg Neuts % (Manual) Lymphocytes % (Manual) Seg Neutrophils # Seg Neutrophils # Man Lymphocytes # (Manual) D-Dimer ABG pH POC ABG pO2 ABG pO2 ABG HCO3 ABG O2 Saturation ABG Base Excess ABG Oxyhemoglobin ABG Sodium ABG Chloride ABG Glucose Oxyhemoglobin Carboxyhemoglobin Sodium 132 L Potassium Chloride 96.4 L Carbon Dioxide BUN 22 H Creatinine 0.3 L Glucose 228 H POC Glucose 154 H 260 H Hemoglobin A1c Ferritin AST ALT 67 H Alkaline Phosphatase Lactate Dehydrogenase C-Reactive Protein Total Protein 6.1 L Albumin 3.2 L Arterial Blood Glucose Coronavirus (PCR) 05/05/21 05/05/21 05/05/21 11:32 17:49 23:07 WBC MCH MCHC RDW Lymph % (Auto) Lymph # (Auto) Baso # (Auto) Seg Neutrophils % Seg Neuts % (Manual) Lymphocytes % (Manual) Seg Neutrophils # Seg Neutrophils # Man Lymphocytes # (Manual) D-Dimer ABG pH POC ABG pO2 ABG pO2 ABG HCO3 ABG O2 Saturation ABG Base Excess ABG Oxyhemoglobin ABG Sodium ABG Chloride ABG Glucose Oxyhemoglobin Carboxyhemoglobin Sodium Potassium Chloride Carbon Dioxide BUN Creatinine Glucose POC Glucose 279 H 308 H 213 H Hemoglobin A1c Ferritin AST ALT Alkaline Phosphatase Lactate Dehydrogenase C-Reactive Protein Total Protein Albumin Arterial Blood Glucose Coronavirus (PCR) 05/06/21 05/06/21 05/06/21 05:00 05:00 05:20 WBC MCH MCHC RDW 16.8 H Lymph % (Auto) Lymph # (Auto) Baso # (Auto) Seg Neutrophils % Seg Neuts % (Manual) 99.0 H Lymphocytes % (Manual) Seg Neutrophils # Seg Neutrophils # Man 10.9 H Lymphocytes # (Manual) 0.0 L D-Dimer ABG pH POC ABG pO2 ABG pO2 ABG HCO3 ABG O2 Saturation ABG Base Excess ABG Oxyhemoglobin ABG Sodium ABG Chloride ABG Glucose Oxyhemoglobin Carboxyhemoglobin Sodium 133 L Potassium Chloride Carbon Dioxide BUN 21 H Creatinine 0.3 L Glucose 259 H POC Glucose 308 H Hemoglobin A1c Ferritin AST ALT Alkaline Phosphatase Lactate Dehydrogenase C-Reactive Protein Total Protein Albumin 3.2 L Arterial Blood Glucose Coronavirus (PCR) 05/06/21 05/06/21 05/06/21 11:24 17:54 21:32 WBC MCH MCHC RDW Lymph % (Auto) Lymph # (Auto) Baso # (Auto) Seg Neutrophils % Seg Neuts % (Manual) Lymphocytes % (Manual) Seg Neutrophils # Seg Neutrophils # Man Lymphocytes # (Manual) D-Dimer ABG pH POC ABG pO2 ABG pO2 ABG HCO3 ABG O2 Saturation ABG Base Excess ABG Oxyhemoglobin ABG Sodium ABG Chloride ABG Glucose Oxyhemoglobin Carboxyhemoglobin Sodium Potassium Chloride Carbon Dioxide BUN Creatinine Glucose POC Glucose 262 H 124 H 246 H Hemoglobin A1c Ferritin AST ALT Alkaline Phosphatase Lactate Dehydrogenase C-Reactive Protein Total Protein Albumin Arterial Blood Glucose Coronavirus (PCR) 05/06/21 05/07/21 05/07/21 23:10 04:54 04:54 WBC MCH MCHC RDW Lymph % (Auto) Lymph # (Auto) Baso # (Auto) Seg Neutrophils % Seg Neuts % (Manual) Lymphocytes % (Manual) Seg Neutrophils # Seg Neutrophils # Man Lymphocytes # (Manual) D-Dimer 1609.28 H ABG pH POC ABG pO2 ABG pO2 ABG HCO3 ABG O2 Saturation ABG Base Excess ABG Oxyhemoglobin ABG Sodium ABG Chloride ABG Glucose Oxyhemoglobin Carboxyhemoglobin Sodium 136 L Potassium Chloride Carbon Dioxide BUN 23 H Creatinine 0.3 L Glucose 110 H POC Glucose 249 H Hemoglobin A1c Ferritin AST ALT Alkaline Phosphatase Lactate Dehydrogenase C-Reactive Protein Total Protein 6.2 L Albumin 3.0 L Arterial Blood Glucose Coronavirus (PCR) 05/07/21 05/07/21 05/07/21 04:54 04:54 11:41 WBC MCH MCHC RDW Lymph % (Auto) Lymph # (Auto) Baso # (Auto) Seg Neutrophils % Seg Neuts % (Manual) Lymphocytes % (Manual) Seg Neutrophils # Seg Neutrophils # Man Lymphocytes # (Manual) D-Dimer ABG pH POC ABG pO2 ABG pO2 ABG HCO3 ABG O2 Saturation ABG Base Excess ABG Oxyhemoglobin ABG Sodium ABG Chloride ABG Glucose Oxyhemoglobin Carboxyhemoglobin Sodium Potassium Chloride Carbon Dioxide BUN Creatinine Glucose POC Glucose 118 H Hemoglobin A1c Ferritin 296.1 H AST ALT Alkaline Phosphatase Lactate Dehydrogenase 724 H C-Reactive Protein Total Protein Albumin Arterial Blood Glucose Coronavirus (PCR) 05/07/21 05/07/21 05/08/21 16:43 22:34 06:44 WBC MCH MCHC RDW Lymph % (Auto) Lymph # (Auto) Baso # (Auto) Seg Neutrophils % Seg Neuts % (Manual) Lymphocytes % (Manual) Seg Neutrophils # Seg Neutrophils # Man Lymphocytes # (Manual) D-Dimer ABG pH POC ABG pO2 ABG pO2 ABG HCO3 ABG O2 Saturation ABG Base Excess ABG Oxyhemoglobin ABG Sodium ABG Chloride ABG Glucose Oxyhemoglobin Carboxyhemoglobin Sodium Potassium Chloride Carbon Dioxide BUN Creatinine Glucose POC Glucose 159 H 233 H 235 H Hemoglobin A1c Ferritin AST ALT Alkaline Phosphatase Lactate Dehydrogenase C-Reactive Protein Total Protein Albumin Arterial Blood Glucose Coronavirus (PCR) 05/08/21 05/08/21 05/08/21 07:49 11:56 17:13 WBC MCH MCHC RDW Lymph % (Auto) Lymph # (Auto) Baso # (Auto) Seg Neutrophils % Seg Neuts % (Manual) Lymphocytes % (Manual) Seg Neutrophils # Seg Neutrophils # Man Lymphocytes # (Manual) D-Dimer ABG pH POC ABG pO2 ABG pO2 ABG HCO3 ABG O2 Saturation ABG Base Excess ABG Oxyhemoglobin ABG Sodium ABG Chloride ABG Glucose Oxyhemoglobin Carboxyhemoglobin Sodium Potassium Chloride Carbon Dioxide BUN Creatinine Glucose POC Glucose 219 H 184 H 182 H Hemoglobin A1c Ferritin AST ALT Alkaline Phosphatase Lactate Dehydrogenase C-Reactive Protein Total Protein Albumin Arterial Blood Glucose Coronavirus (PCR) 05/08/21 05/09/21 05/09/21 23:35 05:20 05:20 WBC MCH MCHC RDW Lymph % (Auto) Lymph # (Auto) Baso # (Auto) Seg Neutrophils % Seg Neuts % (Manual) Lymphocytes % (Manual) Seg Neutrophils # Seg Neutrophils # Man Lymphocytes # (Manual) D-Dimer 1003.87 H ABG pH POC ABG pO2 ABG pO2 ABG HCO3 ABG O2 Saturation ABG Base Excess ABG Oxyhemoglobin ABG Sodium ABG Chloride ABG Glucose Oxyhemoglobin Carboxyhemoglobin Sodium Potassium Chloride Carbon Dioxide BUN Creatinine Glucose POC Glucose 198 H Hemoglobin A1c Ferritin 378.7 H AST ALT Alkaline Phosphatase Lactate Dehydrogenase C-Reactive Protein Total Protein Albumin Arterial Blood Glucose Coronavirus (PCR) 05/09/21 05/09/21 05/09/21 05:20 06:04 12:53 WBC MCH MCHC RDW Lymph % (Auto) Lymph # (Auto) Baso # (Auto) Seg Neutrophils % Seg Neuts % (Manual) Lymphocytes % (Manual) Seg Neutrophils # Seg Neutrophils # Man Lymphocytes # (Manual) D-Dimer ABG pH POC ABG pO2 ABG pO2 ABG HCO3 ABG O2 Saturation ABG Base Excess ABG Oxyhemoglobin ABG Sodium ABG Chloride ABG Glucose Oxyhemoglobin Carboxyhemoglobin Sodium Potassium Chloride Carbon Dioxide BUN Creatinine Glucose POC Glucose 159 H 180 H Hemoglobin A1c Ferritin AST ALT Alkaline Phosphatase Lactate Dehydrogenase 558 H C-Reactive Protein 2.40 H Total Protein Albumin Arterial Blood Glucose Coronavirus (PCR) 05/09/21 05/09/21 05/10/21 16:43 21:27 10:18 WBC MCH MCHC RDW Lymph % (Auto) Lymph # (Auto) Baso # (Auto) Seg Neutrophils % Seg Neuts % (Manual) Lymphocytes % (Manual) Seg Neutrophils # Seg Neutrophils # Man Lymphocytes # (Manual) D-Dimer ABG pH POC ABG pO2 ABG pO2 ABG HCO3 ABG O2 Saturation ABG Base Excess ABG Oxyhemoglobin ABG Sodium ABG Chloride ABG Glucose Oxyhemoglobin Carboxyhemoglobin Sodium Potassium Chloride Carbon Dioxide BUN Creatinine Glucose POC Glucose 212 H 285 H 261 H Hemoglobin A1c Ferritin AST ALT Alkaline Phosphatase Lactate Dehydrogenase C-Reactive Protein Total Protein Albumin Arterial Blood Glucose Coronavirus (PCR) 05/10/21 05/10/21 05/11/21 17:58 18:02 00:29 WBC MCH MCHC RDW Lymph % (Auto) Lymph # (Auto) Baso # (Auto) Seg Neutrophils % Seg Neuts % (Manual) Lymphocytes % (Manual) Seg Neutrophils # Seg Neutrophils # Man Lymphocytes # (Manual) D-Dimer ABG pH POC ABG pO2 ABG pO2 ABG HCO3 ABG O2 Saturation ABG Base Excess ABG Oxyhemoglobin ABG Sodium ABG Chloride ABG Glucose Oxyhemoglobin Carboxyhemoglobin Sodium Potassium Chloride Carbon Dioxide BUN Creatinine Glucose POC Glucose 213 H 179 H 149 H Hemoglobin A1c Ferritin AST ALT Alkaline Phosphatase Lactate Dehydrogenase C-Reactive Protein Total Protein Albumin Arterial Blood Glucose Coronavirus (PCR) 05/11/21 05/11/21 05/11/21 05:22 11:32 17:00 WBC 14.9 H MCH MCHC RDW 18.9 H Lymph % (Auto) 4.9 L Lymph # (Auto) 0.7 L Baso # (Auto) 0.2 H Seg Neutrophils % Seg Neuts % (Manual) Lymphocytes % (Manual) Seg Neutrophils # 13.3 H Seg Neutrophils # Man Lymphocytes # (Manual) D-Dimer ABG pH POC ABG pO2 ABG pO2 ABG HCO3 ABG O2 Saturation ABG Base Excess ABG Oxyhemoglobin ABG Sodium ABG Chloride ABG Glucose Oxyhemoglobin Carboxyhemoglobin Sodium Potassium Chloride Carbon Dioxide BUN Creatinine Glucose POC Glucose 162 H 179 H Hemoglobin A1c Ferritin AST ALT Alkaline Phosphatase Lactate Dehydrogenase C-Reactive Protein Total Protein Albumin Arterial Blood Glucose Coronavirus (PCR) 05/11/21 05/11/21 05/11/21 17:00 17:33 22:03 WBC MCH MCHC RDW Lymph % (Auto) Lymph # (Auto) Baso # (Auto) Seg Neutrophils % Seg Neuts % (Manual) Lymphocytes % (Manual) Seg Neutrophils # Seg Neutrophils # Man Lymphocytes # (Manual) D-Dimer ABG pH POC ABG pO2 ABG pO2 ABG HCO3 ABG O2 Saturation ABG Base Excess ABG Oxyhemoglobin ABG Sodium ABG Chloride ABG Glucose Oxyhemoglobin Carboxyhemoglobin Sodium 135 L Potassium Chloride 97.3 L Carbon Dioxide BUN 21 H Creatinine 0.3 L Glucose 133 H POC Glucose 140 H 282 H Hemoglobin A1c Ferritin AST ALT 60 H Alkaline Phosphatase Lactate Dehydrogenase C-Reactive Protein Total Protein Albumin 3.1 L Arterial Blood Glucose Coronavirus (PCR) 05/12/21 05/12/21 05/12/21 04:05 04:05 04:05 WBC MCH MCHC RDW 18.4 H Lymph % (Auto) Lymph # (Auto) Baso # (Auto) Seg Neutrophils % Seg Neuts % (Manual) 94.0 H Lymphocytes % (Manual) 4.0 L Seg Neutrophils # Seg Neutrophils # Man Lymphocytes # (Manual) 0.3 L D-Dimer ABG pH POC ABG pO2 ABG pO2 ABG HCO3 ABG O2 Saturation ABG Base Excess ABG Oxyhemoglobin ABG Sodium ABG Chloride ABG Glucose Oxyhemoglobin Carboxyhemoglobin Sodium 136 L Potassium Chloride Carbon Dioxide BUN 18 H Creatinine 0.2 L Glucose 142 H POC Glucose Hemoglobin A1c Ferritin 350.7 H AST ALT Alkaline Phosphatase Lactate Dehydrogenase 546 H C-Reactive Protein Total Protein 6.1 L Albumin 3.0 L Arterial Blood Glucose Coronavirus (PCR) 05/12/21 05/12/21 05/12/21 05:11 11:17 16:27 WBC MCH MCHC RDW Lymph % (Auto) Lymph # (Auto) Baso # (Auto) Seg Neutrophils % Seg Neuts % (Manual) Lymphocytes % (Manual) Seg Neutrophils # Seg Neutrophils # Man Lymphocytes # (Manual) D-Dimer ABG pH POC ABG pO2 ABG pO2 ABG HCO3 ABG O2 Saturation ABG Base Excess ABG Oxyhemoglobin ABG Sodium ABG Chloride ABG Glucose Oxyhemoglobin Carboxyhemoglobin Sodium Potassium Chloride Carbon Dioxide BUN Creatinine Glucose POC Glucose 152 H 190 H 261 H Hemoglobin A1c Ferritin AST ALT Alkaline Phosphatase Lactate Dehydrogenase C-Reactive Protein Total Protein Albumin Arterial Blood Glucose Coronavirus (PCR) 05/12/21 05/13/21 05/13/21 20:55 11:08 21:41 WBC MCH MCHC RDW Lymph % (Auto) Lymph # (Auto) Baso # (Auto) Seg Neutrophils % Seg Neuts % (Manual) Lymphocytes % (Manual) Seg Neutrophils # Seg Neutrophils # Man Lymphocytes # (Manual) D-Dimer ABG pH POC ABG pO2 ABG pO2 ABG HCO3 ABG O2 Saturation ABG Base Excess ABG Oxyhemoglobin ABG Sodium ABG Chloride ABG Glucose Oxyhemoglobin Carboxyhemoglobin Sodium Potassium Chloride Carbon Dioxide BUN Creatinine Glucose POC Glucose 231 H 106 H 174 H Hemoglobin A1c Ferritin AST ALT Alkaline Phosphatase Lactate Dehydrogenase C-Reactive Protein Total Protein Albumin Arterial Blood Glucose Coronavirus (PCR) 05/14/21 05/14/21 05/14/21 00:53 02:23 06:06 WBC MCH MCHC RDW Lymph % (Auto) Lymph # (Auto) Baso # (Auto) Seg Neutrophils % Seg Neuts % (Manual) Lymphocytes % (Manual) Seg Neutrophils # Seg Neutrophils # Man Lymphocytes # (Manual) D-Dimer ABG pH POC ABG pO2 ABG pO2 130.3 H ABG HCO3 30.6 H ABG O2 Saturation ABG Base Excess 4.9 H ABG Oxyhemoglobin ABG Sodium ABG Chloride ABG Glucose Oxyhemoglobin Carboxyhemoglobin Sodium Potassium Chloride Carbon Dioxide BUN Creatinine Glucose POC Glucose 229 H 119 H Hemoglobin A1c Ferritin AST ALT Alkaline Phosphatase Lactate Dehydrogenase C-Reactive Protein Total Protein Albumin Arterial Blood Glucose Coronavirus (PCR) 05/14/21 05/14/21 05/14/21 07:13 07:13 07:13 WBC MCH MCHC RDW Lymph % (Auto) Lymph # (Auto) Baso # (Auto) Seg Neutrophils % Seg Neuts % (Manual) Lymphocytes % (Manual) Seg Neutrophils # Seg Neutrophils # Man Lymphocytes # (Manual) D-Dimer 712.80 H ABG pH POC ABG pO2 ABG pO2 ABG HCO3 ABG O2 Saturation ABG Base Excess ABG Oxyhemoglobin ABG Sodium ABG Chloride ABG Glucose Oxyhemoglobin Carboxyhemoglobin Sodium 133 L Potassium Chloride 95.5 L Carbon Dioxide 32 H BUN Creatinine 0.2 L Glucose 137 H POC Glucose Hemoglobin A1c Ferritin 283.5 H AST ALT 63 H Alkaline Phosphatase Lactate Dehydrogenase 563 H C-Reactive Protein Total Protein 6.1 L Albumin 3.0 L Arterial Blood Glucose Coronavirus (PCR) 05/14/21 05/14/21 05/14/21 12:21 15:33 21:50 WBC MCH MCHC RDW Lymph % (Auto) Lymph # (Auto) Baso # (Auto) Seg Neutrophils % Seg Neuts % (Manual) Lymphocytes % (Manual) Seg Neutrophils # Seg Neutrophils # Man Lymphocytes # (Manual) D-Dimer ABG pH POC ABG pO2 ABG pO2 ABG HCO3 ABG O2 Saturation ABG Base Excess ABG Oxyhemoglobin ABG Sodium ABG Chloride ABG Glucose Oxyhemoglobin Carboxyhemoglobin Sodium Potassium Chloride Carbon Dioxide BUN Creatinine Glucose POC Glucose 143 H 204 H 202 H Hemoglobin A1c Ferritin AST ALT Alkaline Phosphatase Lactate Dehydrogenase C-Reactive Protein Total Protein Albumin Arterial Blood Glucose Coronavirus (PCR) 05/15/21 05/15/21 05/15/21 05:05 11:12 16:39 WBC MCH MCHC RDW Lymph % (Auto) Lymph # (Auto) Baso # (Auto) Seg Neutrophils % Seg Neuts % (Manual) Lymphocytes % (Manual) Seg Neutrophils # Seg Neutrophils # Man Lymphocytes # (Manual) D-Dimer ABG pH POC ABG pO2 ABG pO2 ABG HCO3 ABG O2 Saturation ABG Base Excess ABG Oxyhemoglobin ABG Sodium ABG Chloride ABG Glucose Oxyhemoglobin Carboxyhemoglobin Sodium Potassium Chloride Carbon Dioxide BUN Creatinine Glucose POC Glucose 125 H 201 H 241 H Hemoglobin A1c Ferritin AST ALT Alkaline Phosphatase Lactate Dehydrogenase C-Reactive Protein Total Protein Albumin Arterial Blood Glucose Coronavirus (PCR) 05/15/21 05/16/21 05/16/21 21:31 05:04 10:40 WBC MCH MCHC RDW Lymph % (Auto) Lymph # (Auto) Baso # (Auto) Seg Neutrophils % Seg Neuts % (Manual) Lymphocytes % (Manual) Seg Neutrophils # Seg Neutrophils # Man Lymphocytes # (Manual) D-Dimer ABG pH POC ABG pO2 ABG pO2 ABG HCO3 ABG O2 Saturation ABG Base Excess ABG Oxyhemoglobin ABG Sodium ABG Chloride ABG Glucose Oxyhemoglobin Carboxyhemoglobin Sodium Potassium Chloride Carbon Dioxide BUN Creatinine Glucose POC Glucose 234 H 123 H 231 H Hemoglobin A1c Ferritin AST ALT Alkaline Phosphatase Lactate Dehydrogenase C-Reactive Protein Total Protein Albumin Arterial Blood Glucose Coronavirus (PCR) 05/16/21 05/16/21 05/17/21 18:23 21:29 06:20 WBC MCH MCHC RDW 18.8 H Lymph % (Auto) 10.2 L Lymph # (Auto) 0.8 L Baso # (Auto) Seg Neutrophils % 85.8 H Seg Neuts % (Manual) Lymphocytes % (Manual) Seg Neutrophils # Seg Neutrophils # Man Lymphocytes # (Manual) D-Dimer ABG pH POC ABG pO2 ABG pO2 ABG HCO3 ABG O2 Saturation ABG Base Excess ABG Oxyhemoglobin ABG Sodium ABG Chloride ABG Glucose Oxyhemoglobin Carboxyhemoglobin Sodium Potassium Chloride Carbon Dioxide BUN Creatinine Glucose POC Glucose 266 H 234 H Hemoglobin A1c Ferritin AST ALT Alkaline Phosphatase Lactate Dehydrogenase C-Reactive Protein Total Protein Albumin Arterial Blood Glucose Coronavirus (PCR) 05/17/21 05/17/21 05/17/21 06:20 11:06 16:36 WBC MCH MCHC RDW Lymph % (Auto) Lymph # (Auto) Baso # (Auto) Seg Neutrophils % Seg Neuts % (Manual) Lymphocytes % (Manual) Seg Neutrophils # Seg Neutrophils # Man Lymphocytes # (Manual) D-Dimer ABG pH POC ABG pO2 ABG pO2 ABG HCO3 ABG O2 Saturation ABG Base Excess ABG Oxyhemoglobin ABG Sodium ABG Chloride ABG Glucose Oxyhemoglobin Carboxyhemoglobin Sodium Potassium Chloride Carbon Dioxide 33 H BUN Creatinine 0.2 L Glucose 101 H POC Glucose 209 H 180 H Hemoglobin A1c Ferritin AST ALT Alkaline Phosphatase Lactate Dehydrogenase C-Reactive Protein Total Protein Albumin Arterial Blood Glucose Coronavirus (PCR) 05/17/21 05/18/21 05/18/21 21:06 12:00 15:06 WBC MCH MCHC RDW Lymph % (Auto) Lymph # (Auto) Baso # (Auto) Seg Neutrophils % Seg Neuts % (Manual) Lymphocytes % (Manual) Seg Neutrophils # Seg Neutrophils # Man Lymphocytes # (Manual) D-Dimer 874.02 H ABG pH POC ABG pO2 ABG pO2 ABG HCO3 ABG O2 Saturation ABG Base Excess ABG Oxyhemoglobin ABG Sodium ABG Chloride ABG Glucose Oxyhemoglobin Carboxyhemoglobin Sodium Potassium Chloride Carbon Dioxide BUN Creatinine Glucose POC Glucose 256 H 139 H Hemoglobin A1c Ferritin AST ALT Alkaline Phosphatase Lactate Dehydrogenase C-Reactive Protein Total Protein Albumin Arterial Blood Glucose Coronavirus (PCR) 05/18/21 05/18/21 05/18/21 15:06 15:06 16:08 WBC MCH MCHC RDW Lymph % (Auto) Lymph # (Auto) Baso # (Auto) Seg Neutrophils % Seg Neuts % (Manual) Lymphocytes % (Manual) Seg Neutrophils # Seg Neutrophils # Man Lymphocytes # (Manual) D-Dimer ABG pH POC ABG pO2 ABG pO2 ABG HCO3 ABG O2 Saturation ABG Base Excess ABG Oxyhemoglobin ABG Sodium ABG Chloride ABG Glucose Oxyhemoglobin Carboxyhemoglobin Sodium Potassium Chloride Carbon Dioxide BUN Creatinine Glucose POC Glucose 178 H Hemoglobin A1c Ferritin 289.6 H AST ALT Alkaline Phosphatase Lactate Dehydrogenase 605 H C-Reactive Protein Total Protein Albumin Arterial Blood Glucose Coronavirus (PCR) 05/18/21 05/19/21 05/19/21 21:22 11:57 15:26 WBC MCH MCHC RDW Lymph % (Auto) Lymph # (Auto) Baso # (Auto) Seg Neutrophils % Seg Neuts % (Manual) Lymphocytes % (Manual) Seg Neutrophils # Seg Neutrophils # Man Lymphocytes # (Manual) D-Dimer ABG pH POC ABG pO2 ABG pO2 ABG HCO3 ABG O2 Saturation ABG Base Excess ABG Oxyhemoglobin ABG Sodium ABG Chloride ABG Glucose Oxyhemoglobin Carboxyhemoglobin Sodium Potassium Chloride Carbon Dioxide BUN Creatinine Glucose POC Glucose 241 H 201 H 209 H Hemoglobin A1c Ferritin AST ALT Alkaline Phosphatase Lactate Dehydrogenase C-Reactive Protein Total Protein Albumin Arterial Blood Glucose Coronavirus (PCR) 05/19/21 05/20/21 05/20/21 20:59 07:38 08:01 WBC MCH MCHC RDW 19.7 H Lymph % (Auto) 8.3 L Lymph # (Auto) 0.8 L Baso # (Auto) Seg Neutrophils % 88.6 H Seg Neuts % (Manual) Lymphocytes % (Manual) Seg Neutrophils # 8.4 H Seg Neutrophils # Man Lymphocytes # (Manual) D-Dimer ABG pH POC ABG pO2 ABG pO2 ABG HCO3 ABG O2 Saturation ABG Base Excess ABG Oxyhemoglobin ABG Sodium ABG Chloride ABG Glucose Oxyhemoglobin Carboxyhemoglobin Sodium Potassium Chloride Carbon Dioxide BUN Creatinine Glucose POC Glucose 226 H 130 H Hemoglobin A1c Ferritin AST ALT Alkaline Phosphatase Lactate Dehydrogenase C-Reactive Protein Total Protein Albumin Arterial Blood Glucose Coronavirus (PCR) 05/20/21 05/20/21 05/20/21 08:01 11:00 16:43 WBC MCH MCHC RDW Lymph % (Auto) Lymph # (Auto) Baso # (Auto) Seg Neutrophils % Seg Neuts % (Manual) Lymphocytes % (Manual) Seg Neutrophils # Seg Neutrophils # Man Lymphocytes # (Manual) D-Dimer ABG pH POC ABG pO2 ABG pO2 ABG HCO3 ABG O2 Saturation ABG Base Excess ABG Oxyhemoglobin ABG Sodium ABG Chloride ABG Glucose Oxyhemoglobin Carboxyhemoglobin Sodium Potassium Chloride Carbon Dioxide BUN 18 H Creatinine 0.2 L Glucose 132 H POC Glucose 237 H 240 H Hemoglobin A1c Ferritin AST ALT Alkaline Phosphatase Lactate Dehydrogenase C-Reactive Protein Total Protein Albumin Arterial Blood Glucose Coronavirus (PCR) 05/20/21 05/21/21 05/21/21 21:21 07:35 11:32 WBC MCH MCHC RDW Lymph % (Auto) Lymph # (Auto) Baso # (Auto) Seg Neutrophils % Seg Neuts % (Manual) Lymphocytes % (Manual) Seg Neutrophils # Seg Neutrophils # Man Lymphocytes # (Manual) D-Dimer ABG pH POC ABG pO2 ABG pO2 ABG HCO3 ABG O2 Saturation ABG Base Excess ABG Oxyhemoglobin ABG Sodium ABG Chloride ABG Glucose Oxyhemoglobin Carboxyhemoglobin Sodium Potassium Chloride Carbon Dioxide BUN Creatinine Glucose POC Glucose 241 H 162 H 171 H Hemoglobin A1c Ferritin AST ALT Alkaline Phosphatase Lactate Dehydrogenase C-Reactive Protein Total Protein Albumin Arterial Blood Glucose Coronavirus (PCR) 05/21/21 05/21/21 05/22/21 16:22 20:43 05:14 WBC MCH MCHC RDW Lymph % (Auto) Lymph # (Auto) Baso # (Auto) Seg Neutrophils % Seg Neuts % (Manual) Lymphocytes % (Manual) Seg Neutrophils # Seg Neutrophils # Man Lymphocytes # (Manual) D-Dimer ABG pH POC ABG pO2 ABG pO2 ABG HCO3 ABG O2 Saturation ABG Base Excess ABG Oxyhemoglobin ABG Sodium ABG Chloride ABG Glucose Oxyhemoglobin Carboxyhemoglobin Sodium Potassium Chloride Carbon Dioxide BUN Creatinine Glucose POC Glucose 244 H 299 H 140 H Hemoglobin A1c Ferritin AST ALT Alkaline Phosphatase Lactate Dehydrogenase C-Reactive Protein Total Protein Albumin Arterial Blood Glucose Coronavirus (PCR) 05/22/21 05/22/21 05/22/21 08:45 11:54 16:15 WBC MCH MCHC RDW Lymph % (Auto) Lymph # (Auto) Baso # (Auto) Seg Neutrophils % Seg Neuts % (Manual) Lymphocytes % (Manual) Seg Neutrophils # Seg Neutrophils # Man Lymphocytes # (Manual) D-Dimer ABG pH POC ABG pO2 ABG pO2 ABG HCO3 ABG O2 Saturation ABG Base Excess ABG Oxyhemoglobin ABG Sodium ABG Chloride ABG Glucose Oxyhemoglobin Carboxyhemoglobin Sodium Potassium Chloride Carbon Dioxide BUN Creatinine Glucose POC Glucose 133 H 265 H 221 H Hemoglobin A1c Ferritin AST ALT Alkaline Phosphatase Lactate Dehydrogenase C-Reactive Protein Total Protein Albumin Arterial Blood Glucose Coronavirus (PCR) 05/22/21 05/23/21 05/23/21 21:43 08:20 09:50 WBC MCH MCHC RDW Lymph % (Auto) Lymph # (Auto) Baso # (Auto) Seg Neutrophils % Seg Neuts % (Manual) Lymphocytes % (Manual) Seg Neutrophils # Seg Neutrophils # Man Lymphocytes # (Manual) D-Dimer 910.38 H ABG pH POC ABG pO2 ABG pO2 ABG HCO3 ABG O2 Saturation ABG Base Excess ABG Oxyhemoglobin ABG Sodium ABG Chloride ABG Glucose Oxyhemoglobin Carboxyhemoglobin Sodium Potassium Chloride Carbon Dioxide BUN Creatinine Glucose POC Glucose 262 H 140 H Hemoglobin A1c Ferritin AST ALT Alkaline Phosphatase Lactate Dehydrogenase C-Reactive Protein Total Protein Albumin Arterial Blood Glucose Coronavirus (PCR) 05/23/21 05/23/21 05/23/21 09:50 09:50 10:52 WBC MCH MCHC RDW Lymph % (Auto) Lymph # (Auto) Baso # (Auto) Seg Neutrophils % Seg Neuts % (Manual) Lymphocytes % (Manual) Seg Neutrophils # Seg Neutrophils # Man Lymphocytes # (Manual) D-Dimer ABG pH POC ABG pO2 ABG pO2 ABG HCO3 ABG O2 Saturation ABG Base Excess ABG Oxyhemoglobin ABG Sodium ABG Chloride ABG Glucose Oxyhemoglobin Carboxyhemoglobin Sodium Potassium Chloride Carbon Dioxide BUN Creatinine Glucose POC Glucose 241 H Hemoglobin A1c Ferritin 244.9 H AST ALT Alkaline Phosphatase Lactate Dehydrogenase 584 H C-Reactive Protein Total Protein Albumin Arterial Blood Glucose Coronavirus (PCR) 05/23/21 05/23/21 05/24/21 17:24 21:52 07:44 WBC MCH MCHC RDW Lymph % (Auto) Lymph # (Auto) Baso # (Auto) Seg Neutrophils % Seg Neuts % (Manual) Lymphocytes % (Manual) Seg Neutrophils # Seg Neutrophils # Man Lymphocytes # (Manual) D-Dimer ABG pH POC ABG pO2 ABG pO2 ABG HCO3 ABG O2 Saturation ABG Base Excess ABG Oxyhemoglobin ABG Sodium ABG Chloride ABG Glucose Oxyhemoglobin Carboxyhemoglobin Sodium Potassium Chloride Carbon Dioxide BUN Creatinine Glucose POC Glucose 197 H 289 H 161 H Hemoglobin A1c Ferritin AST ALT Alkaline Phosphatase Lactate Dehydrogenase C-Reactive Protein Total Protein Albumin Arterial Blood Glucose Coronavirus (PCR) 05/24/21 05/24/21 05/24/21 11:17 17:51 21:26 WBC MCH MCHC RDW Lymph % (Auto) Lymph # (Auto) Baso # (Auto) Seg Neutrophils % Seg Neuts % (Manual) Lymphocytes % (Manual) Seg Neutrophils # Seg Neutrophils # Man Lymphocytes # (Manual) D-Dimer ABG pH POC ABG pO2 ABG pO2 ABG HCO3 ABG O2 Saturation ABG Base Excess ABG Oxyhemoglobin ABG Sodium ABG Chloride ABG Glucose Oxyhemoglobin Carboxyhemoglobin Sodium Potassium Chloride Carbon Dioxide BUN Creatinine Glucose POC Glucose 308 H 175 H 198 H Hemoglobin A1c Ferritin AST ALT Alkaline Phosphatase Lactate Dehydrogenase C-Reactive Protein Total Protein Albumin Arterial Blood Glucose Coronavirus (PCR) 05/25/21 05/25/21 05/25/21 08:14 11:13 17:13 WBC MCH MCHC RDW Lymph % (Auto) Lymph # (Auto) Baso # (Auto) Seg Neutrophils % Seg Neuts % (Manual) Lymphocytes % (Manual) Seg Neutrophils # Seg Neutrophils # Man Lymphocytes # (Manual) D-Dimer ABG pH POC ABG pO2 ABG pO2 ABG HCO3 ABG O2 Saturation ABG Base Excess ABG Oxyhemoglobin ABG Sodium ABG Chloride ABG Glucose Oxyhemoglobin Carboxyhemoglobin Sodium Potassium Chloride Carbon Dioxide BUN Creatinine Glucose POC Glucose 203 H 339 H 235 H Hemoglobin A1c Ferritin AST ALT Alkaline Phosphatase Lactate Dehydrogenase C-Reactive Protein Total Protein Albumin Arterial Blood Glucose Coronavirus (PCR) 05/25/21 05/26/21 05/26/21 21:03 07:33 11:19 WBC MCH MCHC RDW Lymph % (Auto) Lymph # (Auto) Baso # (Auto) Seg Neutrophils % Seg Neuts % (Manual) Lymphocytes % (Manual) Seg Neutrophils # Seg Neutrophils # Man Lymphocytes # (Manual) D-Dimer ABG pH POC ABG pO2 ABG pO2 ABG HCO3 ABG O2 Saturation ABG Base Excess ABG Oxyhemoglobin ABG Sodium ABG Chloride ABG Glucose Oxyhemoglobin Carboxyhemoglobin Sodium Potassium Chloride Carbon Dioxide BUN Creatinine Glucose POC Glucose 263 H 156 H 288 H Hemoglobin A1c Ferritin AST ALT Alkaline Phosphatase Lactate Dehydrogenase C-Reactive Protein Total Protein Albumin Arterial Blood Glucose Coronavirus (PCR) 05/26/21 05/26/21 05/27/21 16:26 20:55 07:38 WBC MCH MCHC RDW Lymph % (Auto) Lymph # (Auto) Baso # (Auto) Seg Neutrophils % Seg Neuts % (Manual) Lymphocytes % (Manual) Seg Neutrophils # Seg Neutrophils # Man Lymphocytes # (Manual) D-Dimer ABG pH POC ABG pO2 ABG pO2 ABG HCO3 ABG O2 Saturation ABG Base Excess ABG Oxyhemoglobin ABG Sodium ABG Chloride ABG Glucose Oxyhemoglobin Carboxyhemoglobin Sodium Potassium Chloride Carbon Dioxide BUN Creatinine Glucose POC Glucose 286 H 293 H 115 H Hemoglobin A1c Ferritin AST ALT Alkaline Phosphatase Lactate Dehydrogenase C-Reactive Protein Total Protein Albumin Arterial Blood Glucose Coronavirus (PCR) 05/27/21 05/27/21 05/27/21 11:46 15:58 21:02 WBC MCH MCHC RDW Lymph % (Auto) Lymph # (Auto) Baso # (Auto) Seg Neutrophils % Seg Neuts % (Manual) Lymphocytes % (Manual) Seg Neutrophils # Seg Neutrophils # Man Lymphocytes # (Manual) D-Dimer ABG pH POC ABG pO2 ABG pO2 ABG HCO3 ABG O2 Saturation ABG Base Excess ABG Oxyhemoglobin ABG Sodium ABG Chloride ABG Glucose Oxyhemoglobin Carboxyhemoglobin Sodium Potassium Chloride Carbon Dioxide BUN Creatinine Glucose POC Glucose 260 H 318 H 246 H Hemoglobin A1c Ferritin AST ALT Alkaline Phosphatase Lactate Dehydrogenase C-Reactive Protein Total Protein Albumin Arterial Blood Glucose Coronavirus (PCR) 05/28/21 05/28/21 05/28/21 07:34 11:31 16:36 WBC MCH MCHC RDW Lymph % (Auto) Lymph # (Auto) Baso # (Auto) Seg Neutrophils % Seg Neuts % (Manual) Lymphocytes % (Manual) Seg Neutrophils # Seg Neutrophils # Man Lymphocytes # (Manual) D-Dimer ABG pH POC ABG pO2 ABG pO2 ABG HCO3 ABG O2 Saturation ABG Base Excess ABG Oxyhemoglobin ABG Sodium ABG Chloride ABG Glucose Oxyhemoglobin Carboxyhemoglobin Sodium Potassium Chloride Carbon Dioxide BUN Creatinine Glucose POC Glucose 185 H 297 H 183 H Hemoglobin A1c Ferritin AST ALT Alkaline Phosphatase Lactate Dehydrogenase C-Reactive Protein Total Protein Albumin Arterial Blood Glucose Coronavirus (PCR) 05/28/21 05/29/21 05/29/21 21:19 07:34 11:19 WBC MCH MCHC RDW Lymph % (Auto) Lymph # (Auto) Baso # (Auto) Seg Neutrophils % Seg Neuts % (Manual) Lymphocytes % (Manual) Seg Neutrophils # Seg Neutrophils # Man Lymphocytes # (Manual) D-Dimer ABG pH POC ABG pO2 ABG pO2 ABG HCO3 ABG O2 Saturation ABG Base Excess ABG Oxyhemoglobin ABG Sodium ABG Chloride ABG Glucose Oxyhemoglobin Carboxyhemoglobin Sodium Potassium Chloride Carbon Dioxide BUN Creatinine Glucose POC Glucose 274 H 139 H 293 H Hemoglobin A1c Ferritin AST ALT Alkaline Phosphatase Lactate Dehydrogenase C-Reactive Protein Total Protein Albumin Arterial Blood Glucose Coronavirus (PCR) 05/29/21 05/29/21 05/30/21 16:36 22:44 05:55 WBC MCH MCHC RDW 21.3 H Lymph % (Auto) 8.0 L Lymph # (Auto) 0.6 L Baso # (Auto) Seg Neutrophils % 88.6 H Seg Neuts % (Manual) Lymphocytes % (Manual) Seg Neutrophils # Seg Neutrophils # Man Lymphocytes # (Manual) D-Dimer ABG pH POC ABG pO2 ABG pO2 ABG HCO3 ABG O2 Saturation ABG Base Excess ABG Oxyhemoglobin ABG Sodium ABG Chloride ABG Glucose Oxyhemoglobin Carboxyhemoglobin Sodium Potassium Chloride Carbon Dioxide BUN Creatinine Glucose POC Glucose 299 H 160 H Hemoglobin A1c Ferritin AST ALT Alkaline Phosphatase Lactate Dehydrogenase C-Reactive Protein Total Protein Albumin Arterial Blood Glucose Coronavirus (PCR) 05/30/21 05/30/21 05/30/21 05:55 08:04 11:13 WBC MCH MCHC RDW Lymph % (Auto) Lymph # (Auto) Baso # (Auto) Seg Neutrophils % Seg Neuts % (Manual) Lymphocytes % (Manual) Seg Neutrophils # Seg Neutrophils # Man Lymphocytes # (Manual) D-Dimer ABG pH POC ABG pO2 ABG pO2 ABG HCO3 ABG O2 Saturation ABG Base Excess ABG Oxyhemoglobin ABG Sodium ABG Chloride ABG Glucose Oxyhemoglobin Carboxyhemoglobin Sodium Potassium Chloride Carbon Dioxide BUN 19 H Creatinine 0.2 L Glucose 209 H POC Glucose 157 H 275 H Hemoglobin A1c Ferritin AST ALT Alkaline Phosphatase Lactate Dehydrogenase C-Reactive Protein Total Protein Albumin Arterial Blood Glucose Coronavirus (PCR) 05/30/21 05/30/21 05/31/21 17:08 22:12 07:36 WBC MCH MCHC RDW Lymph % (Auto) Lymph # (Auto) Baso # (Auto) Seg Neutrophils % Seg Neuts % (Manual) Lymphocytes % (Manual) Seg Neutrophils # Seg Neutrophils # Man Lymphocytes # (Manual) D-Dimer ABG pH POC ABG pO2 ABG pO2 ABG HCO3 ABG O2 Saturation ABG Base Excess ABG Oxyhemoglobin ABG Sodium ABG Chloride ABG Glucose Oxyhemoglobin Carboxyhemoglobin Sodium Potassium Chloride Carbon Dioxide BUN Creatinine Glucose POC Glucose 154 H 275 H 138 H Hemoglobin A1c Ferritin AST ALT Alkaline Phosphatase Lactate Dehydrogenase C-Reactive Protein Total Protein Albumin Arterial Blood Glucose Coronavirus (PCR) 05/31/21 05/31/21 05/31/21 11:17 16:55 21:25 WBC MCH MCHC RDW Lymph % (Auto) Lymph # (Auto) Baso # (Auto) Seg Neutrophils % Seg Neuts % (Manual) Lymphocytes % (Manual) Seg Neutrophils # Seg Neutrophils # Man Lymphocytes # (Manual) D-Dimer ABG pH POC ABG pO2 ABG pO2 ABG HCO3 ABG O2 Saturation ABG Base Excess ABG Oxyhemoglobin ABG Sodium ABG Chloride ABG Glucose Oxyhemoglobin Carboxyhemoglobin Sodium Potassium Chloride Carbon Dioxide BUN Creatinine Glucose POC Glucose 258 H 215 H 318 H Hemoglobin A1c Ferritin AST ALT Alkaline Phosphatase Lactate Dehydrogenase C-Reactive Protein Total Protein Albumin Arterial Blood Glucose Coronavirus (PCR) 06/01/21 06/01/21 06/01/21 07:23 11:38 16:52 WBC MCH MCHC RDW Lymph % (Auto) Lymph # (Auto) Baso # (Auto) Seg Neutrophils % Seg Neuts % (Manual) Lymphocytes % (Manual) Seg Neutrophils # Seg Neutrophils # Man Lymphocytes # (Manual) D-Dimer ABG pH POC ABG pO2 ABG pO2 ABG HCO3 ABG O2 Saturation ABG Base Excess ABG Oxyhemoglobin ABG Sodium ABG Chloride ABG Glucose Oxyhemoglobin Carboxyhemoglobin Sodium Potassium Chloride Carbon Dioxide BUN Creatinine Glucose POC Glucose 157 H 259 H 150 H Hemoglobin A1c Ferritin AST ALT Alkaline Phosphatase Lactate Dehydrogenase C-Reactive Protein Total Protein Albumin Arterial Blood Glucose Coronavirus (PCR) 09/18/21 09/19/21 09/19/21 23:16 05:34 05:34 WBC MCH MCHC RDW 21.3 H Lymph % (Auto) 9.6 L Lymph # (Auto) 0.6 L Baso # (Auto) Seg Neutrophils % 86.2 H Seg Neuts % (Manual) Lymphocytes % (Manual) Seg Neutrophils # Seg Neutrophils # Man Lymphocytes # (Manual) D-Dimer ABG pH POC ABG pO2 ABG pO2 ABG HCO3 ABG O2 Saturation ABG Base Excess ABG Oxyhemoglobin ABG Sodium ABG Chloride ABG Glucose Oxyhemoglobin Carboxyhemoglobin Sodium 136 L Potassium Chloride Carbon Dioxide BUN Creatinine 0.2 L Glucose 186 H POC Glucose 247 H Hemoglobin A1c Ferritin AST ALT 69 H Alkaline Phosphatase Lactate Dehydrogenase C-Reactive Protein Total Protein 6.1 L Albumin 3.2 L Arterial Blood Glucose Coronavirus (PCR) 06/02/21 06/02/21 06/02/21 11:25 18:23 21:32 WBC MCH MCHC RDW Lymph % (Auto) Lymph # (Auto) Baso # (Auto) Seg Neutrophils % Seg Neuts % (Manual) Lymphocytes % (Manual) Seg Neutrophils # Seg Neutrophils # Man Lymphocytes # (Manual) D-Dimer ABG pH POC ABG pO2 ABG pO2 ABG HCO3 ABG O2 Saturation ABG Base Excess ABG Oxyhemoglobin ABG Sodium ABG Chloride ABG Glucose Oxyhemoglobin Carboxyhemoglobin Sodium Potassium Chloride Carbon Dioxide BUN Creatinine Glucose POC Glucose 157 H 299 H 246 H Hemoglobin A1c Ferritin AST ALT Alkaline Phosphatase Lactate Dehydrogenase C-Reactive Protein Total Protein Albumin Arterial Blood Glucose Coronavirus (PCR) 06/03/21 06/03/21 06/03/21 08:12 12:21 17:31 WBC MCH MCHC RDW Lymph % (Auto) Lymph # (Auto) Baso # (Auto) Seg Neutrophils % Seg Neuts % (Manual) Lymphocytes % (Manual) Seg Neutrophils # Seg Neutrophils # Man Lymphocytes # (Manual) D-Dimer ABG pH POC ABG pO2 ABG pO2 ABG HCO3 ABG O2 Saturation ABG Base Excess ABG Oxyhemoglobin ABG Sodium ABG Chloride ABG Glucose Oxyhemoglobin Carboxyhemoglobin Sodium Potassium Chloride Carbon Dioxide BUN Creatinine Glucose POC Glucose 153 H 302 H 252 H Hemoglobin A1c Ferritin AST ALT Alkaline Phosphatase Lactate Dehydrogenase C-Reactive Protein Total Protein Albumin Arterial Blood Glucose Coronavirus (PCR) 06/03/21 06/04/21 06/04/21 22:08 11:12 16:01 WBC MCH MCHC RDW Lymph % (Auto) Lymph # (Auto) Baso # (Auto) Seg Neutrophils % Seg Neuts % (Manual) Lymphocytes % (Manual) Seg Neutrophils # Seg Neutrophils # Man Lymphocytes # (Manual) D-Dimer ABG pH POC ABG pO2 ABG pO2 ABG HCO3 ABG O2 Saturation ABG Base Excess ABG Oxyhemoglobin ABG Sodium ABG Chloride ABG Glucose Oxyhemoglobin Carboxyhemoglobin Sodium Potassium Chloride Carbon Dioxide BUN Creatinine Glucose POC Glucose 224 H 259 H 238 H Hemoglobin A1c Ferritin AST ALT Alkaline Phosphatase Lactate Dehydrogenase C-Reactive Protein Total Protein Albumin Arterial Blood Glucose Coronavirus (PCR) 06/04/21 06/05/21 06/05/21 21:26 05:26 05:26 WBC MCH MCHC RDW Lymph % (Auto) Lymph # (Auto) Baso # (Auto) Seg Neutrophils % Seg Neuts % (Manual) Lymphocytes % (Manual) Seg Neutrophils # Seg Neutrophils # Man Lymphocytes # (Manual) D-Dimer 488.49 H ABG pH POC ABG pO2 ABG pO2 ABG HCO3 ABG O2 Saturation ABG Base Excess ABG Oxyhemoglobin ABG Sodium ABG Chloride ABG Glucose Oxyhemoglobin Carboxyhemoglobin Sodium Potassium Chloride Carbon Dioxide BUN Creatinine 0.2 L Glucose 198 H POC Glucose 257 H Hemoglobin A1c Ferritin AST ALT Alkaline Phosphatase Lactate Dehydrogenase 475 H C-Reactive Protein Total Protein Albumin Arterial Blood Glucose Coronavirus (PCR) 06/05/21 06/05/21 06/05/21 07:20 08:30 11:00 WBC MCH MCHC RDW Lymph % (Auto) Lymph # (Auto) Baso # (Auto) Seg Neutrophils % Seg Neuts % (Manual) Lymphocytes % (Manual) Seg Neutrophils # Seg Neutrophils # Man Lymphocytes # (Manual) D-Dimer ABG pH POC ABG pO2 ABG pO2 ABG HCO3 ABG O2 Saturation ABG Base Excess ABG Oxyhemoglobin ABG Sodium ABG Chloride ABG Glucose Oxyhemoglobin Carboxyhemoglobin Sodium Potassium Chloride Carbon Dioxide BUN Creatinine Glucose POC Glucose 146 H 246 H Hemoglobin A1c Ferritin AST ALT Alkaline Phosphatase Lactate Dehydrogenase C-Reactive Protein Total Protein Albumin Arterial Blood Glucose Coronavirus (PCR) Positive A 06/05/21 06/05/21 06/06/21 16:50 22:30 07:57 WBC MCH MCHC RDW Lymph % (Auto) Lymph # (Auto) Baso # (Auto) Seg Neutrophils % Seg Neuts % (Manual) Lymphocytes % (Manual) Seg Neutrophils # Seg Neutrophils # Man Lymphocytes # (Manual) D-Dimer ABG pH POC ABG pO2 ABG pO2 ABG HCO3 ABG O2 Saturation ABG Base Excess ABG Oxyhemoglobin ABG Sodium ABG Chloride ABG Glucose Oxyhemoglobin Carboxyhemoglobin Sodium Potassium Chloride Carbon Dioxide BUN Creatinine Glucose POC Glucose 240 H 174 H 120 H Hemoglobin A1c Ferritin AST ALT Alkaline Phosphatase Lactate Dehydrogenase C-Reactive Protein Total Protein Albumin Arterial Blood Glucose Coronavirus (PCR) 06/06/21 06/06/21 06/06/21 11:14 16:50 21:11 WBC MCH MCHC RDW Lymph % (Auto) Lymph # (Auto) Baso # (Auto) Seg Neutrophils % Seg Neuts % (Manual) Lymphocytes % (Manual) Seg Neutrophils # Seg Neutrophils # Man Lymphocytes # (Manual) D-Dimer ABG pH POC ABG pO2 ABG pO2 ABG HCO3 ABG O2 Saturation ABG Base Excess ABG Oxyhemoglobin ABG Sodium ABG Chloride ABG Glucose Oxyhemoglobin Carboxyhemoglobin Sodium Potassium Chloride Carbon Dioxide BUN Creatinine Glucose POC Glucose 267 H 218 H 124 H Hemoglobin A1c Ferritin AST ALT Alkaline Phosphatase Lactate Dehydrogenase C-Reactive Protein Total Protein Albumin Arterial Blood Glucose Coronavirus (PCR) 06/07/21 06/07/21 06/08/21 11:58 15:59 07:59 WBC MCH MCHC RDW Lymph % (Auto) Lymph # (Auto) Baso # (Auto) Seg Neutrophils % Seg Neuts % (Manual) Lymphocytes % (Manual) Seg Neutrophils # Seg Neutrophils # Man Lymphocytes # (Manual) D-Dimer ABG pH POC ABG pO2 ABG pO2 ABG HCO3 ABG O2 Saturation ABG Base Excess ABG Oxyhemoglobin ABG Sodium ABG Chloride ABG Glucose Oxyhemoglobin Carboxyhemoglobin Sodium Potassium Chloride Carbon Dioxide BUN Creatinine Glucose POC Glucose 219 H 208 H 192 H Hemoglobin A1c Ferritin AST ALT Alkaline Phosphatase Lactate Dehydrogenase C-Reactive Protein Total Protein Albumin Arterial Blood Glucose Coronavirus (PCR) 06/08/21 06/08/21 06/09/21 11:26 23:28 07:33 WBC MCH MCHC RDW Lymph % (Auto) Lymph # (Auto) Baso # (Auto) Seg Neutrophils % Seg Neuts % (Manual) Lymphocytes % (Manual) Seg Neutrophils # Seg Neutrophils # Man Lymphocytes # (Manual) D-Dimer ABG pH POC ABG pO2 ABG pO2 ABG HCO3 ABG O2 Saturation ABG Base Excess ABG Oxyhemoglobin ABG Sodium ABG Chloride ABG Glucose Oxyhemoglobin Carboxyhemoglobin Sodium Potassium Chloride Carbon Dioxide BUN Creatinine Glucose POC Glucose 307 H 138 H 145 H Hemoglobin A1c Ferritin AST ALT Alkaline Phosphatase Lactate Dehydrogenase C-Reactive Protein Total Protein Albumin Arterial Blood Glucose Coronavirus (PCR) 06/09/21 06/09/21 06/09/21 11:01 15:47 21:43 WBC MCH MCHC RDW Lymph % (Auto) Lymph # (Auto) Baso # (Auto) Seg Neutrophils % Seg Neuts % (Manual) Lymphocytes % (Manual) Seg Neutrophils # Seg Neutrophils # Man Lymphocytes # (Manual) D-Dimer ABG pH POC ABG pO2 ABG pO2 ABG HCO3 ABG O2 Saturation ABG Base Excess ABG Oxyhemoglobin ABG Sodium ABG Chloride ABG Glucose Oxyhemoglobin Carboxyhemoglobin Sodium Potassium Chloride Carbon Dioxide BUN Creatinine Glucose POC Glucose 266 H 305 H 223 H Hemoglobin A1c Ferritin AST ALT Alkaline Phosphatase Lactate Dehydrogenase C-Reactive Protein Total Protein Albumin Arterial Blood Glucose Coronavirus (PCR) 06/10/21 06/10/21 06/10/21 08:27 12:10 17:45 WBC MCH MCHC RDW Lymph % (Auto) Lymph # (Auto) Baso # (Auto) Seg Neutrophils % Seg Neuts % (Manual) Lymphocytes % (Manual) Seg Neutrophils # Seg Neutrophils # Man Lymphocytes # (Manual) D-Dimer ABG pH POC ABG pO2 ABG pO2 ABG HCO3 ABG O2 Saturation ABG Base Excess ABG Oxyhemoglobin ABG Sodium ABG Chloride ABG Glucose Oxyhemoglobin Carboxyhemoglobin Sodium Potassium Chloride Carbon Dioxide BUN Creatinine Glucose POC Glucose 174 H 306 H 210 H Hemoglobin A1c Ferritin AST ALT Alkaline Phosphatase Lactate Dehydrogenase C-Reactive Protein Total Protein Albumin Arterial Blood Glucose Coronavirus (PCR) 06/10/21 06/11/21 06/11/21 21:45 09:38 09:38 WBC MCH MCHC RDW 20.9 H Lymph % (Auto) Lymph # (Auto) Baso # (Auto) Seg Neutrophils % Seg Neuts % (Manual) Lymphocytes % (Manual) Seg Neutrophils # Seg Neutrophils # Man Lymphocytes # (Manual) D-Dimer ABG pH POC ABG pO2 ABG pO2 ABG HCO3 ABG O2 Saturation ABG Base Excess ABG Oxyhemoglobin ABG Sodium ABG Chloride ABG Glucose Oxyhemoglobin Carboxyhemoglobin Sodium 135 L Potassium Chloride 90.8 L Carbon Dioxide 36 H BUN 29 H Creatinine 0.2 L Glucose 258 H POC Glucose 262 H Hemoglobin A1c Ferritin AST ALT Alkaline Phosphatase Lactate Dehydrogenase C-Reactive Protein Total Protein Albumin Arterial Blood Glucose Coronavirus (PCR) 06/11/21 06/11/21 06/11/21 11:20 15:49 22:57 WBC MCH MCHC RDW Lymph % (Auto) Lymph # (Auto) Baso # (Auto) Seg Neutrophils % Seg Neuts % (Manual) Lymphocytes % (Manual) Seg Neutrophils # Seg Neutrophils # Man Lymphocytes # (Manual) D-Dimer ABG pH POC ABG pO2 ABG pO2 ABG HCO3 ABG O2 Saturation ABG Base Excess ABG Oxyhemoglobin ABG Sodium ABG Chloride ABG Glucose Oxyhemoglobin Carboxyhemoglobin Sodium Potassium Chloride Carbon Dioxide BUN Creatinine Glucose POC Glucose 269 H 206 H 211 H Hemoglobin A1c Ferritin AST ALT Alkaline Phosphatase Lactate Dehydrogenase C-Reactive Protein Total Protein Albumin Arterial Blood Glucose Coronavirus (PCR) 06/12/21 06/12/21 06/12/21 08:07 11:24 18:08 WBC MCH MCHC RDW Lymph % (Auto) Lymph # (Auto) Baso # (Auto) Seg Neutrophils % Seg Neuts % (Manual) Lymphocytes % (Manual) Seg Neutrophils # Seg Neutrophils # Man Lymphocytes # (Manual) D-Dimer ABG pH POC ABG pO2 ABG pO2 ABG HCO3 ABG O2 Saturation ABG Base Excess ABG Oxyhemoglobin ABG Sodium ABG Chloride ABG Glucose Oxyhemoglobin Carboxyhemoglobin Sodium Potassium Chloride Carbon Dioxide BUN Creatinine Glucose POC Glucose 149 H 270 H 166 H Hemoglobin A1c Ferritin AST ALT Alkaline Phosphatase Lactate Dehydrogenase C-Reactive Protein Total Protein Albumin Arterial Blood Glucose Coronavirus (PCR) 06/12/21 06/13/21 06/13/21 20:22 07:50 11:18 WBC MCH MCHC RDW Lymph % (Auto) Lymph # (Auto) Baso # (Auto) Seg Neutrophils % Seg Neuts % (Manual) Lymphocytes % (Manual) Seg Neutrophils # Seg Neutrophils # Man Lymphocytes # (Manual) D-Dimer ABG pH POC ABG pO2 ABG pO2 ABG HCO3 ABG O2 Saturation ABG Base Excess ABG Oxyhemoglobin ABG Sodium ABG Chloride ABG Glucose Oxyhemoglobin Carboxyhemoglobin Sodium Potassium Chloride Carbon Dioxide BUN Creatinine Glucose POC Glucose 155 H 163 H 293 H Hemoglobin A1c Ferritin AST ALT Alkaline Phosphatase Lactate Dehydrogenase C-Reactive Protein Total Protein Albumin Arterial Blood Glucose Coronavirus (PCR) 06/13/21 06/13/21 06/14/21 16:41 21:00 07:41 WBC MCH MCHC RDW Lymph % (Auto) Lymph # (Auto) Baso # (Auto) Seg Neutrophils % Seg Neuts % (Manual) Lymphocytes % (Manual) Seg Neutrophils # Seg Neutrophils # Man Lymphocytes # (Manual) D-Dimer ABG pH POC ABG pO2 ABG pO2 ABG HCO3 ABG O2 Saturation ABG Base Excess ABG Oxyhemoglobin ABG Sodium ABG Chloride ABG Glucose Oxyhemoglobin Carboxyhemoglobin Sodium Potassium Chloride Carbon Dioxide BUN Creatinine Glucose POC Glucose 232 H 183 H 52 L Hemoglobin A1c Ferritin AST ALT Alkaline Phosphatase Lactate Dehydrogenase C-Reactive Protein Total Protein Albumin Arterial Blood Glucose Coronavirus (PCR) 06/14/21 06/14/21 06/14/21 11:44 17:44 21:44 WBC MCH MCHC RDW Lymph % (Auto) Lymph # (Auto) Baso # (Auto) Seg Neutrophils % Seg Neuts % (Manual) Lymphocytes % (Manual) Seg Neutrophils # Seg Neutrophils # Man Lymphocytes # (Manual) D-Dimer ABG pH POC ABG pO2 ABG pO2 ABG HCO3 ABG O2 Saturation ABG Base Excess ABG Oxyhemoglobin ABG Sodium ABG Chloride ABG Glucose Oxyhemoglobin Carboxyhemoglobin Sodium Potassium Chloride Carbon Dioxide BUN Creatinine Glucose POC Glucose 205 H 293 H 288 H Hemoglobin A1c Ferritin AST ALT Alkaline Phosphatase Lactate Dehydrogenase C-Reactive Protein Total Protein Albumin Arterial Blood Glucose Coronavirus (PCR) 06/15/21 06/15/21 06/15/21 08:00 08:00 11:40 WBC MCH 33 H MCHC 35 H RDW 20.3 H Lymph % (Auto) Lymph # (Auto) Baso # (Auto) Seg Neutrophils % Seg Neuts % (Manual) Lymphocytes % (Manual) Seg Neutrophils # Seg Neutrophils # Man Lymphocytes # (Manual) D-Dimer ABG pH POC ABG pO2 ABG pO2 ABG HCO3 ABG O2 Saturation ABG Base Excess ABG Oxyhemoglobin ABG Sodium ABG Chloride ABG Glucose Oxyhemoglobin Carboxyhemoglobin Sodium Potassium 3.2 L Chloride 95.3 L Carbon Dioxide 32 H BUN 23 H Creatinine 0.2 L Glucose 103 H POC Glucose 204 H Hemoglobin A1c Ferritin AST ALT Alkaline Phosphatase Lactate Dehydrogenase C-Reactive Protein Total Protein Albumin Arterial Blood Glucose Coronavirus (PCR) 06/15/21 06/15/21 06/16/21 16:17 22:00 11:43 WBC MCH MCHC RDW Lymph % (Auto) Lymph # (Auto) Baso # (Auto) Seg Neutrophils % Seg Neuts % (Manual) Lymphocytes % (Manual) Seg Neutrophils # Seg Neutrophils # Man Lymphocytes # (Manual) D-Dimer ABG pH POC ABG pO2 ABG pO2 ABG HCO3 ABG O2 Saturation ABG Base Excess ABG Oxyhemoglobin ABG Sodium ABG Chloride ABG Glucose Oxyhemoglobin Carboxyhemoglobin Sodium Potassium Chloride Carbon Dioxide BUN Creatinine Glucose POC Glucose 295 H 233 H 201 H Hemoglobin A1c Ferritin AST ALT Alkaline Phosphatase Lactate Dehydrogenase C-Reactive Protein Total Protein Albumin Arterial Blood Glucose Coronavirus (PCR) 06/16/21 06/16/21 06/17/21 17:21 21:27 07:12 WBC MCH MCHC RDW Lymph % (Auto) Lymph # (Auto) Baso # (Auto) Seg Neutrophils % Seg Neuts % (Manual) Lymphocytes % (Manual) Seg Neutrophils # Seg Neutrophils # Man Lymphocytes # (Manual) D-Dimer ABG pH POC ABG pO2 ABG pO2 ABG HCO3 ABG O2 Saturation ABG Base Excess ABG Oxyhemoglobin ABG Sodium ABG Chloride ABG Glucose Oxyhemoglobin Carboxyhemoglobin Sodium Potassium Chloride Carbon Dioxide BUN Creatinine Glucose POC Glucose 299 H 290 H 67 L Hemoglobin A1c Ferritin AST ALT Alkaline Phosphatase Lactate Dehydrogenase C-Reactive Protein Total Protein Albumin Arterial Blood Glucose Coronavirus (PCR) 06/17/21 06/17/21 06/17/21 11:53 17:02 22:25 WBC MCH MCHC RDW Lymph % (Auto) Lymph # (Auto) Baso # (Auto) Seg Neutrophils % Seg Neuts % (Manual) Lymphocytes % (Manual) Seg Neutrophils # Seg Neutrophils # Man Lymphocytes # (Manual) D-Dimer ABG pH POC ABG pO2 ABG pO2 ABG HCO3 ABG O2 Saturation ABG Base Excess ABG Oxyhemoglobin ABG Sodium ABG Chloride ABG Glucose Oxyhemoglobin Carboxyhemoglobin Sodium Potassium Chloride Carbon Dioxide BUN Creatinine Glucose POC Glucose 199 H 362 H 235 H Hemoglobin A1c Ferritin AST ALT Alkaline Phosphatase Lactate Dehydrogenase C-Reactive Protein Total Protein Albumin Arterial Blood Glucose Coronavirus (PCR) 06/18/21 06/18/21 06/18/21 08:00 11:48 16:40 WBC MCH MCHC RDW Lymph % (Auto) Lymph # (Auto) Baso # (Auto) Seg Neutrophils % Seg Neuts % (Manual) Lymphocytes % (Manual) Seg Neutrophils # Seg Neutrophils # Man Lymphocytes # (Manual) D-Dimer ABG pH POC ABG pO2 ABG pO2 ABG HCO3 ABG O2 Saturation ABG Base Excess ABG Oxyhemoglobin ABG Sodium ABG Chloride ABG Glucose Oxyhemoglobin Carboxyhemoglobin Sodium Potassium Chloride Carbon Dioxide BUN Creatinine Glucose POC Glucose 62 L 211 H 305 H Hemoglobin A1c Ferritin AST ALT Alkaline Phosphatase Lactate Dehydrogenase C-Reactive Protein Total Protein Albumin Arterial Blood Glucose Coronavirus (PCR) 06/18/21 06/19/21 06/19/21 21:26 07:27 11:32 WBC MCH MCHC RDW Lymph % (Auto) Lymph # (Auto) Baso # (Auto) Seg Neutrophils % Seg Neuts % (Manual) Lymphocytes % (Manual) Seg Neutrophils # Seg Neutrophils # Man Lymphocytes # (Manual) D-Dimer ABG pH POC ABG pO2 ABG pO2 ABG HCO3 ABG O2 Saturation ABG Base Excess ABG Oxyhemoglobin ABG Sodium ABG Chloride ABG Glucose Oxyhemoglobin Carboxyhemoglobin Sodium Potassium Chloride Carbon Dioxide BUN Creatinine Glucose POC Glucose 149 H 60 L 208 H Hemoglobin A1c Ferritin AST ALT Alkaline Phosphatase Lactate Dehydrogenase C-Reactive Protein Total Protein Albumin Arterial Blood Glucose Coronavirus (PCR) 06/19/21 06/19/21 06/20/21 16:06 22:28 07:48 WBC MCH MCHC RDW Lymph % (Auto) Lymph # (Auto) Baso # (Auto) Seg Neutrophils % Seg Neuts % (Manual) Lymphocytes % (Manual) Seg Neutrophils # Seg Neutrophils # Man Lymphocytes # (Manual) D-Dimer ABG pH POC ABG pO2 ABG pO2 ABG HCO3 ABG O2 Saturation ABG Base Excess ABG Oxyhemoglobin ABG Sodium ABG Chloride ABG Glucose Oxyhemoglobin Carboxyhemoglobin Sodium Potassium Chloride Carbon Dioxide BUN Creatinine Glucose POC Glucose 266 H 166 H 58 L Hemoglobin A1c Ferritin AST ALT Alkaline Phosphatase Lactate Dehydrogenase C-Reactive Protein Total Protein Albumin Arterial Blood Glucose Coronavirus (PCR) 06/20/21 06/20/21 06/20/21 09:09 11:04 16:01 WBC MCH MCHC RDW Lymph % (Auto) Lymph # (Auto) Baso # (Auto) Seg Neutrophils % Seg Neuts % (Manual) Lymphocytes % (Manual) Seg Neutrophils # Seg Neutrophils # Man Lymphocytes # (Manual) D-Dimer ABG pH POC ABG pO2 ABG pO2 ABG HCO3 ABG O2 Saturation ABG Base Excess ABG Oxyhemoglobin ABG Sodium ABG Chloride ABG Glucose Oxyhemoglobin Carboxyhemoglobin Sodium Potassium Chloride Carbon Dioxide BUN Creatinine Glucose POC Glucose 146 H 225 H 330 H Hemoglobin A1c Ferritin AST ALT Alkaline Phosphatase Lactate Dehydrogenase C-Reactive Protein Total Protein Albumin Arterial Blood Glucose Coronavirus (PCR) 06/20/21 06/21/21 06/21/21 20:46 06:45 06:45 WBC MCH MCHC RDW 20.0 H Lymph % (Auto) Lymph # (Auto) Baso # (Auto) Seg Neutrophils % Seg Neuts % (Manual) Lymphocytes % (Manual) Seg Neutrophils # Seg Neutrophils # Man Lymphocytes # (Manual) D-Dimer ABG pH POC ABG pO2 ABG pO2 ABG HCO3 ABG O2 Saturation ABG Base Excess ABG Oxyhemoglobin ABG Sodium ABG Chloride ABG Glucose Oxyhemoglobin Carboxyhemoglobin Sodium Potassium 2.9 L* Chloride 95.0 L Carbon Dioxide 31 H BUN 23 H Creatinine 0.2 L Glucose 45 L POC Glucose 215 H Hemoglobin A1c Ferritin AST ALT Alkaline Phosphatase Lactate Dehydrogenase C-Reactive Protein Total Protein Albumin Arterial Blood Glucose Coronavirus (PCR) 06/21/21 06/21/21 06/21/21 07:38 09:06 12:40 WBC MCH MCHC RDW Lymph % (Auto) Lymph # (Auto) Baso # (Auto) Seg Neutrophils % Seg Neuts % (Manual) Lymphocytes % (Manual) Seg Neutrophils # Seg Neutrophils # Man Lymphocytes # (Manual) D-Dimer ABG pH POC ABG pO2 ABG pO2 ABG HCO3 ABG O2 Saturation ABG Base Excess ABG Oxyhemoglobin ABG Sodium ABG Chloride ABG Glucose Oxyhemoglobin Carboxyhemoglobin Sodium Potassium Chloride Carbon Dioxide BUN Creatinine Glucose POC Glucose 50 L 196 H 205 H Hemoglobin A1c Ferritin AST ALT Alkaline Phosphatase Lactate Dehydrogenase C-Reactive Protein Total Protein Albumin Arterial Blood Glucose Coronavirus (PCR) 06/21/21 06/22/21 06/22/21 21:36 06:25 07:15 WBC MCH MCHC RDW Lymph % (Auto) Lymph # (Auto) Baso # (Auto) Seg Neutrophils % Seg Neuts % (Manual) Lymphocytes % (Manual) Seg Neutrophils # Seg Neutrophils # Man Lymphocytes # (Manual) D-Dimer ABG pH POC ABG pO2 ABG pO2 ABG HCO3 ABG O2 Saturation ABG Base Excess ABG Oxyhemoglobin ABG Sodium ABG Chloride ABG Glucose Oxyhemoglobin Carboxyhemoglobin Sodium Potassium Chloride Carbon Dioxide BUN 20 H Creatinine 0.2 L Glucose POC Glucose 245 H 66 L Hemoglobin A1c Ferritin AST ALT Alkaline Phosphatase Lactate Dehydrogenase C-Reactive Protein Total Protein Albumin Arterial Blood Glucose Coronavirus (PCR) 06/22/21 06/22/21 06/22/21 11:03 16:07 22:03 WBC MCH MCHC RDW Lymph % (Auto) Lymph # (Auto) Baso # (Auto) Seg Neutrophils % Seg Neuts % (Manual) Lymphocytes % (Manual) Seg Neutrophils # Seg Neutrophils # Man Lymphocytes # (Manual) D-Dimer ABG pH POC ABG pO2 ABG pO2 ABG HCO3 ABG O2 Saturation ABG Base Excess ABG Oxyhemoglobin ABG Sodium ABG Chloride ABG Glucose Oxyhemoglobin Carboxyhemoglobin Sodium Potassium Chloride Carbon Dioxide BUN Creatinine Glucose POC Glucose 184 H 326 H 138 H Hemoglobin A1c Ferritin AST ALT Alkaline Phosphatase Lactate Dehydrogenase C-Reactive Protein Total Protein Albumin Arterial Blood Glucose Coronavirus (PCR) 06/23/21 06/23/21 06/23/21 07:19 10:34 16:35 WBC MCH MCHC RDW Lymph % (Auto) Lymph # (Auto) Baso # (Auto) Seg Neutrophils % Seg Neuts % (Manual) Lymphocytes % (Manual) Seg Neutrophils # Seg Neutrophils # Man Lymphocytes # (Manual) D-Dimer ABG pH POC ABG pO2 ABG pO2 ABG HCO3 ABG O2 Saturation ABG Base Excess ABG Oxyhemoglobin ABG Sodium ABG Chloride ABG Glucose Oxyhemoglobin Carboxyhemoglobin Sodium Potassium Chloride Carbon Dioxide BUN Creatinine Glucose POC Glucose 69 L 218 H 326 H Hemoglobin A1c Ferritin AST ALT Alkaline Phosphatase Lactate Dehydrogenase C-Reactive Protein Total Protein Albumin Arterial Blood Glucose Coronavirus (PCR) 06/23/21 06/24/21 06/24/21 22:44 11:41 16:54 WBC MCH MCHC RDW Lymph % (Auto) Lymph # (Auto) Baso # (Auto) Seg Neutrophils % Seg Neuts % (Manual) Lymphocytes % (Manual) Seg Neutrophils # Seg Neutrophils # Man Lymphocytes # (Manual) D-Dimer ABG pH POC ABG pO2 ABG pO2 ABG HCO3 ABG O2 Saturation ABG Base Excess ABG Oxyhemoglobin ABG Sodium ABG Chloride ABG Glucose Oxyhemoglobin Carboxyhemoglobin Sodium Potassium Chloride Carbon Dioxide BUN Creatinine Glucose POC Glucose 252 H 217 H 357 H Hemoglobin A1c Ferritin AST ALT Alkaline Phosphatase Lactate Dehydrogenase C-Reactive Protein Total Protein Albumin Arterial Blood Glucose Coronavirus (PCR) 06/24/21 06/25/21 06/25/21 20:40 11:51 16:47 WBC MCH MCHC RDW Lymph % (Auto) Lymph # (Auto) Baso # (Auto) Seg Neutrophils % Seg Neuts % (Manual) Lymphocytes % (Manual) Seg Neutrophils # Seg Neutrophils # Man Lymphocytes # (Manual) D-Dimer ABG pH POC ABG pO2 ABG pO2 ABG HCO3 ABG O2 Saturation ABG Base Excess ABG Oxyhemoglobin ABG Sodium ABG Chloride ABG Glucose Oxyhemoglobin Carboxyhemoglobin Sodium Potassium Chloride Carbon Dioxide BUN Creatinine Glucose POC Glucose 239 H 182 H 229 H Hemoglobin A1c Ferritin AST ALT Alkaline Phosphatase Lactate Dehydrogenase C-Reactive Protein Total Protein Albumin Arterial Blood Glucose Coronavirus (PCR) 06/25/21 06/26/21 06/26/21 22:27 07:20 12:19 WBC MCH MCHC RDW Lymph % (Auto) Lymph # (Auto) Baso # (Auto) Seg Neutrophils % Seg Neuts % (Manual) Lymphocytes % (Manual) Seg Neutrophils # Seg Neutrophils # Man Lymphocytes # (Manual) D-Dimer ABG pH POC ABG pO2 ABG pO2 ABG HCO3 ABG O2 Saturation ABG Base Excess ABG Oxyhemoglobin ABG Sodium ABG Chloride ABG Glucose Oxyhemoglobin Carboxyhemoglobin Sodium Potassium 3.2 L D Chloride Carbon Dioxide BUN 20 H Creatinine 0.3 L Glucose POC Glucose 209 H 273 H Hemoglobin A1c Ferritin AST ALT 77 H Alkaline Phosphatase Lactate Dehydrogenase C-Reactive Protein Total Protein Albumin 3.3 L Arterial Blood Glucose Coronavirus (PCR) 06/26/21 06/26/21 06/27/21 16:52 20:55 07:14 WBC MCH MCHC RDW Lymph % (Auto) Lymph # (Auto) Baso # (Auto) Seg Neutrophils % Seg Neuts % (Manual) Lymphocytes % (Manual) Seg Neutrophils # Seg Neutrophils # Man Lymphocytes # (Manual) D-Dimer ABG pH POC ABG pO2 ABG pO2 ABG HCO3 ABG O2 Saturation ABG Base Excess ABG Oxyhemoglobin ABG Sodium ABG Chloride ABG Glucose Oxyhemoglobin Carboxyhemoglobin Sodium Potassium Chloride Carbon Dioxide 31 H BUN 19 H Creatinine 0.2 L Glucose 112 H POC Glucose 326 H 220 H Hemoglobin A1c Ferritin AST ALT Alkaline Phosphatase Lactate Dehydrogenase C-Reactive Protein Total Protein Albumin Arterial Blood Glucose Coronavirus (PCR) 06/27/21 06/27/21 06/27/21 07:29 10:54 15:49 WBC MCH MCHC RDW Lymph % (Auto) Lymph # (Auto) Baso # (Auto) Seg Neutrophils % Seg Neuts % (Manual) Lymphocytes % (Manual) Seg Neutrophils # Seg Neutrophils # Man Lymphocytes # (Manual) D-Dimer ABG pH POC ABG pO2 ABG pO2 ABG HCO3 ABG O2 Saturation ABG Base Excess ABG Oxyhemoglobin ABG Sodium ABG Chloride ABG Glucose Oxyhemoglobin Carboxyhemoglobin Sodium Potassium Chloride Carbon Dioxide BUN Creatinine Glucose POC Glucose 115 H 228 H 240 H Hemoglobin A1c Ferritin AST ALT Alkaline Phosphatase Lactate Dehydrogenase C-Reactive Protein Total Protein Albumin Arterial Blood Glucose Coronavirus (PCR) 06/28/21 06/28/21 06/28/21 05:43 05:43 07:13 WBC MCH 33 H MCHC RDW 19.8 H Lymph % (Auto) Lymph # (Auto) Baso # (Auto) Seg Neutrophils % Seg Neuts % (Manual) Lymphocytes % (Manual) Seg Neutrophils # Seg Neutrophils # Man Lymphocytes # (Manual) D-Dimer ABG pH POC ABG pO2 ABG pO2 ABG HCO3 ABG O2 Saturation ABG Base Excess ABG Oxyhemoglobin ABG Sodium ABG Chloride ABG Glucose Oxyhemoglobin Carboxyhemoglobin Sodium Potassium 3.3 L Chloride Carbon Dioxide BUN 22 H Creatinine 0.2 L Glucose POC Glucose 69 L Hemoglobin A1c Ferritin AST ALT 63 H Alkaline Phosphatase Lactate Dehydrogenase C-Reactive Protein Total Protein Albumin 3.3 L Arterial Blood Glucose Coronavirus (PCR) 06/28/21 06/28/21 06/28/21 12:18 15:37 21:01 WBC MCH MCHC RDW Lymph % (Auto) Lymph # (Auto) Baso # (Auto) Seg Neutrophils % Seg Neuts % (Manual) Lymphocytes % (Manual) Seg Neutrophils # Seg Neutrophils # Man Lymphocytes # (Manual) D-Dimer ABG pH POC ABG pO2 ABG pO2 ABG HCO3 ABG O2 Saturation ABG Base Excess ABG Oxyhemoglobin ABG Sodium ABG Chloride ABG Glucose Oxyhemoglobin Carboxyhemoglobin Sodium Potassium Chloride Carbon Dioxide BUN Creatinine Glucose POC Glucose 154 H 201 H 191 H Hemoglobin A1c Ferritin AST ALT Alkaline Phosphatase Lactate Dehydrogenase C-Reactive Protein Total Protein Albumin Arterial Blood Glucose Coronavirus (PCR) 06/29/21 06/29/21 06/29/21 11:55 15:47 21:06 WBC MCH MCHC RDW Lymph % (Auto) Lymph # (Auto) Baso # (Auto) Seg Neutrophils % Seg Neuts % (Manual) Lymphocytes % (Manual) Seg Neutrophils # Seg Neutrophils # Man Lymphocytes # (Manual) D-Dimer ABG pH POC ABG pO2 ABG pO2 ABG HCO3 ABG O2 Saturation ABG Base Excess ABG Oxyhemoglobin ABG Sodium ABG Chloride ABG Glucose Oxyhemoglobin Carboxyhemoglobin Sodium Potassium Chloride Carbon Dioxide BUN Creatinine Glucose POC Glucose 238 H 249 H 155 H Hemoglobin A1c Ferritin AST ALT Alkaline Phosphatase Lactate Dehydrogenase C-Reactive Protein Total Protein Albumin Arterial Blood Glucose Coronavirus (PCR) 06/30/21 06/30/21 06/30/21 04:00 07:50 11:50 WBC MCH MCHC RDW Lymph % (Auto) Lymph # (Auto) Baso # (Auto) Seg Neutrophils % Seg Neuts % (Manual) Lymphocytes % (Manual) Seg Neutrophils # Seg Neutrophils # Man Lymphocytes # (Manual) D-Dimer ABG pH POC ABG pO2 ABG pO2 ABG HCO3 ABG O2 Saturation ABG Base Excess ABG Oxyhemoglobin ABG Sodium ABG Chloride ABG Glucose Oxyhemoglobin Carboxyhemoglobin Sodium Potassium 3.5 L Chloride Carbon Dioxide BUN 18 H Creatinine 0.3 L Glucose 111 H POC Glucose 117 H 250 H Hemoglobin A1c Ferritin AST ALT Alkaline Phosphatase Lactate Dehydrogenase C-Reactive Protein Total Protein Albumin Arterial Blood Glucose Coronavirus (PCR) 06/30/21 06/30/21 07/01/21 16:05 21:02 07:26 WBC MCH MCHC RDW Lymph % (Auto) Lymph # (Auto) Baso # (Auto) Seg Neutrophils % Seg Neuts % (Manual) Lymphocytes % (Manual) Seg Neutrophils # Seg Neutrophils # Man Lymphocytes # (Manual) D-Dimer ABG pH POC ABG pO2 ABG pO2 ABG HCO3 ABG O2 Saturation ABG Base Excess ABG Oxyhemoglobin ABG Sodium ABG Chloride ABG Glucose Oxyhemoglobin Carboxyhemoglobin Sodium Potassium Chloride Carbon Dioxide BUN Creatinine Glucose POC Glucose 250 H 217 H 111 H Hemoglobin A1c Ferritin AST ALT Alkaline Phosphatase Lactate Dehydrogenase C-Reactive Protein Total Protein Albumin Arterial Blood Glucose Coronavirus (PCR) 07/01/21 11:06 WBC MCH MCHC RDW Lymph % (Auto) Lymph # (Auto) Baso # (Auto) Seg Neutrophils % Seg Neuts % (Manual) Lymphocytes % (Manual) Seg Neutrophils # Seg Neutrophils # Man Lymphocytes # (Manual) D-Dimer ABG pH POC ABG pO2 ABG pO2 ABG HCO3 ABG O2 Saturation ABG Base Excess ABG Oxyhemoglobin ABG Sodium ABG Chloride ABG Glucose Oxyhemoglobin Carboxyhemoglobin Sodium Potassium Chloride Carbon Dioxide BUN Creatinine Glucose POC Glucose 229 H Hemoglobin A1c Ferritin AST ALT Alkaline Phosphatase Lactate Dehydrogenase C-Reactive Protein Total Protein Albumin Arterial Blood Glucose Coronavirus (PCR)
[2021-07-01] MEDS: ACETAMINOPHEN 325 MG TAB PO PRN (13:28)
[2021-07-01] MEDS: ENOXAPARIN 40 MG/0.4 ML INJ SUB-Q SCH (22:58)
[2021-07-01] MEDS: SENNOSIDES 8.6 MG TAB PO SCH (22:58)
[2021-07-01] MEDS: ZOLPIDEM 5 MG TAB PO PRN (22:58)
[2021-07-02] MEDS: INSULIN LISPRO 100 UNIT/ML SUB-Q SCH ×4 (09:06→22:42)
[2021-07-02] MEDS: INSULIN GLARGINE 100 UNITS/ML SUB-Q SCH (09:06)
[2021-07-02] MEDS: DOCUSATE SODIUM 100 MG CAP PO SCH ×2 (09:07→22:40)
[2021-07-02] MEDS: CHOLECALCIFEROL (VIT D3) 1000 UNIT (25 mcg) TAB PO SCH (09:07)
[2021-07-02] MEDS: ZINC SULFATE 220 MG CAP PO SCH ×2 (09:07→22:41)
[2021-07-02] MEDS: ASCORBIC ACID 500 MG TAB PO SCH (09:07)
[2021-07-02] MEDS: predniSONE 20 MG TAB PO SCH (09:07)
[2021-07-02] MEDS: ACETAMINOPHEN 325 MG TAB PO SCH ×2 (09:58→14:00)
[2021-07-02] MEDS: clonazePAM 0.5 MG TAB PO PRN (09:59)
[2021-07-02] MEDS ORDERED: predniSONE 20 MG TAB PO SCH (10:40)
--- NOTE | 2021-07-02 12:14 | Progress Note ---
Assessment and Plan Assessment and plan: Admit 04/16 from ER 50 YO Female with GERD, Obesity, HLD presents to ED for evaluation. Patient reports "I cannot breathe". Patient states that she has experienced subjective fever, shortness of breath, malaise, body aches, dry cough, and shortness of breath over the past 1 week with progressively worsening symptoms over the same timeframe. EMS was notified and upon arrival the patient was found to be in distress and subsequent transported to [facility] for further care and evaluation of the aforementioned symptoms. The patient was seen and evaluated in the emergency department. All lab and imaging studies reviewed. Patient found to have a pulse oximetry of 86% with exertion on room air which is consistent with acute hypoxemic respiratory failure. Patient with chest x-ray which revealed bilateral pneumonia. Patient admitted to medical floor and initiated him on pneumonia protocol as well as coronavirus protocol. Patient knowledges fever but denies chills, chest pain, palpitation, skin rash, recent ill contacts, or known exposure to COVID-19. Prior admission on 01/21/2017 reviewed. All medication listed at time of admission has been reconciled. Patient is unvaccinated for coronavirus infection. CXR: Bilateral Pneumonia 04/17: Patient seen and examined, still uncomfortable with Hypoxic respiratory failure and on oxygen, will continue to steroids therapy, start patient on Remdesivir, ID consulted, Pulmonary consult placed. 04/18: Patient seen and examined, she is currently being changed to High flow NC due to worsening HYPOXIA, will transfer to IMCU, Pulmonary and ID following. Will also give a dose of Lasix today. Monitor Inflammatory markers. 04/19: Patient seen and examined still on high flow due to hypoxia. Appears a bit more comfortable today than yesterday. Cough has decreased in frequency. We will continue high dose Dexameathasone to complete 10 days. continue on Remdesivir 200 mg IV q day x 1 followed by 100 mg IV q day x 4 days -Obtain q48-72h inflammatory markers - ferritin, Ddimer, CRP, LDH Will also give lasix daily for the next 3 days and monitor renal function. Family updated. Continue prone positioning as tolerated 04/20: Patient has some desaturation episodes yesterday was placed on BiPAP. Discussed with ICU team for bed availability for patient to be transferred up. Continue prone position as tolerated. 04/21: Patient remains with profound hypoxia secondary to COVID pneumonia. -Continue steroids -Continue remedesir -S/P Actmera 04/22: Patient remains on steroids and remdesivir. ABG shows persistent hypoxia. We will continue current management additional trial of Lasix for the next few days to see if any improvement. Monitor inflammatory markers as needed. Prognosis is guarded remains on high flow 04/23; patient was treated with remdesivir and Actemra. Continue steroid. Patient's prognosis is guarded. 04/24; patient is on steroid. Patient is currently on BiPAP. Prognosis is guarded. Pulmonary is following. Patient was given Lasix and Ativan. 04/25; continue steroid. Patient was on 40 L of high flow oxygen with saturation was 88%. Pulmonary is following. Prognosis is guarded. Patient was given lasix and ativan. 04/26; patient is on BiPAP and Precedex. Prognosis is guarded. 04/27; patient is on BiPAP and Precedex. Patient will finish steroid today and will start on Solu-Medrol tomorrow. Prognosis is guarded. Blood pressure is better today. Hold Lasix. 04/28 patient is on 100 Fio2 via BIPAP. moderately dyspneic, pulmonary note reviewed, lab results reviewed 04/29 no acute events- see systems review above 04/30 no acute events overnight - on airvo today- TPN started -see systems review above 05-01 no acute events overnight- tolerating airvo- see systems review above 05-02 no acute events overnight; tolerating airvo this AM- see systems review above 05/03: Patient remains on full high flow oxygen. No acute events overnight 05/04: Patient remains on BiPAP this morning at 70%. Returning to service Patient initially managed in the ICU and then transfered to the floor 06/25: Patient remains on full oxygen with high flow, encouraged to prone at night time. Spoke to Night nursing staff to ensure assisting the patient Prone. Continue steroid therapy, will discuss with Pulmonary about trying additional lasix. Plan discussed with patient and family. 06/26: Patient already on Lasix daily, Hypokalemia- Replace K. Continue to encourage Proning. Remains on high flow. 06/27: Continue supportive care unfortunately had to go up on her oxygen to 70% FiO2 prognosis remains guarded continue to encourage proning. 06/28: Continue supportive care, Encourage Proning 06/29: Mild hypokalemia noted yesterday will be replaced as it was not corrected yesterday we will recheck BMP in a.m. Continue IV Lasix. Monitor renal function. 06/30: Give additional potassium for better control. Continue supportive care. Continue IV Lasix. Continue to encourage proning again discussed with the patient via inspector hairspring truing. He verbalized understanding 07/01: Brief summary patient seen and examined this morning continues to show improvement FiO2 demand down to 45% on 30 L on high flow. Patient is a 50-year-old male who was admitted with COVID-19 today is day 76 of her hospital stay she was initially managed in the ICU and now has been transferred to the floor. She remains on low-dose steroid therapy following completion of remdesivir and recommended steroid. She is encouraged to continue to prone and the nights that she has done this has shown some improvement. She is still probably a long way from being discharged. Intermittent monitoring off electrolytes as she has had some episode of hyponatremia and hypomagnesemia is recommended. She is concerned about puffiness in her face which is likely steroid-induced I have discussed this with her that it will improve following discontinuation of steroid. In the meantime I have held her Lasix as we have been diuresing her for majority of her stay and this should be reevaluated the next few days to see if she will benefit from further diuresis. Pulmonary is on board #Sepsis secondary to COVID 19-resolved #Acute hypoxemic respiratory failure-stable Current Visit: Yes Status: Acute Plan to address problem: Supplemental oxygen, pulse oximetry, nebulizer therapy, proposition while in bed, noninvasive positive pressure ventilation as clinically indicated. Patient remains on high flow supplemental oxygen without much improvement of hypoxia. Will continue to attempt to wean O2 as tolerated. #Pneumonia-stable Current Visit: Yes Status: Acute Qualifiers: Aspiration pneumonia type: unspecified Laterality: unspecified laterality Lung location: unspecified part of lung Plan to address problem: Pneumonia protocol: Chest x-ray, CBC, CMP, IV antibiotic therapy, blood culture. #Coronavirus infection Current Visit: Yes Status: Acute Plan to address problem: Supportive care, infectious disease service consulted. Continue medical management. #Anxiety -Counseled patient about relaxation techniques -Can consider medical management if needed; patient expressed understanding #Right eye- viral conjunctivitis vs subconjunctival hemorrhage continue to monitor treated with ofloxacin ou x 5 days artificial tears has not provided relief #Protein gisella malnutrition given inc metabolic demand with resp insufficiency Now off TPN #Diabetes mellitus with Hyperglycemia; Noted hypoglycemia will wean down lantus. glargine HS SSI AC/HS #Obesity #- volume overload; hypona; hypoMg #DVT prophylaxis Current Visit: Yes Status: Acute Plan to address problem: SCD to bilateral lower extremities while in bed, prophylactic anticoagulation Disposition Plan: Continue medical management Total Time Spent with Patient (Minutes): 40 History Interval history: No acute events overnight. Hospitalist Physical - Constitutional Vitals: Temp Pulse Resp BP Pulse Ox 98.3 F 98 H 20 130/77 91 07/02/21 05:20 07/02/21 05:20 07/02/21 05:20 07/02/21 05:20 07/02/21 10:16 General appearance: Present: mild distress, well-nourished, obese - EENT Eyes: Present: PERRL, EOM intact ENT: hearing intact, clear oral mucosa, dentition normal - Neck Neck: Present: supple, normal ROM - Respiratory Respiratory effort: normal (Currently on high flow 35 L 80% FiO2) Respiratory: bilateral: diminished, rhonchi, negative: rales, wheezing - Cardiovascular Rhythm: regular Heart Sounds: Present: S1 & S2 - Extremities Extremities: no ischemia, pulses intact, pulses symmetrical, No edema, normal temperature, normal color Peripheral Pulses: within normal limits - Abdominal General gastrointestinal: soft, non-tender, non-distended, normal bowel sounds - Integumentary Integumentary: Present: clear, warm, dry - Psychiatric Psychiatric: appropriate mood/affect, intact judgment & insight, memory intact, cooperative - Neurologic Neurologic: CNII-XII intact, moves all extremities - Allied Health Allied health notes reviewed: nursing Results - Labs CBC & Chem 7: 06/28/21 05:43 06/30/21 04:00 Labs: Laboratory Last Values WBC 7.4 K/mm3 (4.5-11.0) 06/28/21 05:43 RBC 4.02 M/mm3 (3.65-5.03) 06/28/21 05:43 Hgb 13.0 gm/dl (10.1-14.3) 06/28/21 05:43 Hct 38.2 % (30.3-42.9) 06/28/21 05:43 MCV 95 fl (79-97) 06/28/21 05:43 MCH 33 pg (28-32) H 06/28/21 05:43 MCHC 34 % (30-34) 06/28/21 05:43 RDW 19.8 % (13.2-15.2) H 06/28/21 05:43 Plt Count 203 K/mm3 (140-440) 06/28/21 05:43 Lymph % (Auto) 30.3 % (13.4-35.0) 06/21/21 06:45 Alcorn % (Auto) 6.5 % (0.0-7.3) 06/21/21 06:45 Eos % (Auto) 0.7 % (0.0-4.3) 06/21/21 06:45 Baso % (Auto) 0.5 % (0.0-1.8) 06/21/21 06:45 Lymph # (Auto) 2.8 K/mm3 (1.2-5.4) 06/21/21 06:45 Alcorn # (Auto) 0.6 K/mm3 (0.0-0.8) 06/21/21 06:45 Eos # (Auto) 0.1 K/mm3 (0.0-0.4) 06/21/21 06:45 Baso # (Auto) 0.0 K/mm3 (0.0-0.1) 06/21/21 06:45 Add Manual Diff Complete 05/12/21 04:05 Total Counted 100 05/12/21 04:05 Seg Neutrophils % 62.0 % (40.0-70.0) 06/21/21 06:45 Seg Neuts % (Manual) 94.0 % (40.0-70.0) H 05/12/21 04:05 Band Neutrophils % 1.0 % 05/12/21 04:05 Lymphocytes % (Manual) 4.0 % (13.4-35.0) L 05/12/21 04:05 Monocytes % (Manual) 1.0 % (0.0-7.3) 05/12/21 04:05 Nucleated RBC % Not Reportable 05/12/21 04:05 Seg Neutrophils # 5.7 K/mm3 (1.8-7.7) 06/21/21 06:45 Seg Neutrophils # Man 6.4 K/mm3 (1.8-7.7) 05/12/21 04:05 Band Neutrophils # 0.1 K/mm3 05/12/21 04:05 Lymphocytes # (Manual) 0.3 K/mm3 (1.2-5.4) L 05/12/21 04:05 Abs React Lymphs (Man) 0.0 K/mm3 05/12/21 04:05 Monocytes # (Manual) 0.1 K/mm3 (0.0-0.8) 05/12/21 04:05 Eosinophils # (Manual) 0.0 K/mm3 (0.0-0.4) 05/12/21 04:05 Basophils # (Manual) 0.0 K/mm3 (0.0-0.1) 05/12/21 04:05 Metamyelocytes # 0.0 K/mm3 05/12/21 04:05 Myelocytes # 0.0 K/mm3 05/12/21 04:05 Promyelocytes # 0.0 K/mm3 05/12/21 04:05 Blast Cells # 0.0 K/mm3 05/12/21 04:05 WBC Morphology Not Reportable 05/12/21 04:05 Hypersegmented Neuts Not Reportable 05/12/21 04:05 Hyposegmented Neuts Not Reportable 05/12/21 04:05 Hypogranular Neuts Not Reportable 05/12/21 04:05 Smudge Cells Not Reportable 05/12/21 04:05 Toxic Granulation Not Reportable 05/12/21 04:05 Toxic Vacuolation Not Reportable 05/12/21 04:05 Dohle Bodies Not Reportable 05/12/21 04:05 Pelger-Huet Anomaly Not Reportable 05/12/21 04:05 Janelle Rods Not Reportable 05/12/21 04:05 Platelet Estimate Consistent w auto 05/12/21 04:05 Clumped Platelets Not Reportable 05/12/21 04:05 Plt Clumps, EDTA Not Reportable 05/12/21 04:05 Large Platelets Not Reportable 05/12/21 04:05 Giant Platelets Not Reportable 05/12/21 04:05 Platelet Satelliting Not Reportable 05/12/21 04:05 Plt Morphology Comment Not Reportable 05/12/21 04:05 RBC Morphology Normal 05/12/21 04:05 Dimorphic RBCs Not Reportable 05/12/21 04:05 Polychromasia Not Reportable 05/12/21 04:05 Hypochromasia Not Reportable 05/12/21 04:05 Poikilocytosis Not Reportable 05/12/21 04:05 Anisocytosis Not Reportable 05/12/21 04:05 Microcytosis Not Reportable 05/12/21 04:05 Macrocytosis Not Reportable 05/12/21 04:05 Spherocytes Not Reportable 05/12/21 04:05 Pappenheimer Bodies Not Reportable 05/12/21 04:05 Sickle Cells Not Reportable 05/12/21 04:05 Target Cells Not Reportable 05/12/21 04:05 Tear Drop Cells Not Reportable 05/12/21 04:05 Ovalocytes Not Reportable 05/12/21 04:05 Helmet Cells Not Reportable 05/12/21 04:05 [place] Bodies Not Reportable 05/12/21 04:05 [place] Rings Not Reportable 05/12/21 04:05 [place] Cells Not Reportable 05/12/21 04:05 Bite Cells Not Reportable 05/12/21 04:05 Crenated Cell Not Reportable 05/12/21 04:05 Elliptocytes Not Reportable 05/12/21 04:05 Acanthocytes (Spur) Not Reportable 05/12/21 04:05 Rouleaux Not Reportable 05/12/21 04:05 Hemoglobin C Crystals Not Reportable 05/12/21 04:05 Schistocytes Not Reportable 05/12/21 04:05 Malaria parasites Not Reportable 05/12/21 04:05 Justin Bodies Not Reportable 05/12/21 04:05 Hem Pathologist Commnt No 05/12/21 04:05 D-Dimer 488.49 ng/mlDDU (0-234) H 06/05/21 05:26 ABG pH 7.403 pH Units (7.350-7.450) 05/14/21 02:23 POC ABG pCO2 45.4 mmHg (32.0-48.0) 05/03/21 04:49 ABG pCO2 50.2 mm Hg 05/14/21 02:23 POC ABG pO2 65.3 mmHg (83-108) L 05/03/21 04:49 ABG pO2 130.3 mm Hg (80.0-90.0) H 05/14/21 02:23 POC ABG HCO3 18.5 05/03/21 04:49 ABG HCO3 30.6 mmol/L (20.0-26.0) H 05/14/21 02:23 ABG O2 Saturation 98.5 % (95.0-99.0) 05/14/21 02:23 ABG O2 Content 17.9 (0.0-44) 05/14/21 02:23 POC ABG Base Excess -8.9 05/03/21 04:49 ABG Base Excess 4.9 mmol/L (-2.0-3.0) H 05/14/21 02:23 ABG Hemoglobin 13.0 gm/dl (12.0-16.0) 05/14/21 02:23 ABG Oxyhemoglobin 87.8 (94-98) L 05/03/21 04:49 ABG Carboxyhemoglobin 1.4 % (0.0-5.0) 05/14/21 02:23 ABG Methemoglobin 0.6 % (0.0-1.5) 05/14/21 02:23 ABG Sodium 133.0 mmol/L (136.0-145.0) L 05/03/21 04:49 ABG Potassium 3.9 mmol/L (3.40-4.50) 05/03/21 04:49 ABG Chloride 97.0 mmol/L (98-107) L 05/03/21 04:49 ABG Glucose 403 mg/dL (65-95) H 05/03/21 04:49 Oxyhemoglobin 96.5 % (95.0-99.0) 05/14/21 02:23 Carboxyhemoglobin 0.6 (0.5-1.5) 05/03/21 04:49 FiO2 90 % 05/14/21 02:23 FiO2 % 100.0 05/03/21 04:49 Sodium 141 mmol/L (137-145) 06/30/21 04:00 Potassium 3.5 mmol/L (3.6-5.0) L 06/30/21 04:00 Chloride 100.3 mmol/L (98-107) 06/30/21 04:00 Carbon Dioxide 28 mmol/L (22-30) 06/30/21 04:00 Anion Gap 16 mmol/L 06/30/21 04:00 BUN 18 mg/dL (7-17) H 06/30/21 04:00 Creatinine 0.3 mg/dL (0.6-1.2) L 06/30/21 04:00 Estimated GFR > 60 ml/min 06/30/21 04:00 BUN/Creatinine Ratio 60 % 06/30/21 04:00 Glucose 111 mg/dL (65-100) H 06/30/21 04:00 POC Glucose 230 mg/dL (70-105) H 07/02/21 11:50 Hemoglobin A1c 8.5 % (4-6) H 04/18/21 07:36 Calcium 9.3 mg/dL (8.4-10.2) 06/30/21 04:00 Phosphorus 3.60 mg/dL (2.5-4.5) 05/06/21 05:00 Magnesium 2.00 mg/dL (1.7-2.3) 05/06/21 05:00 Ferritin 187.7 ng/mL (10.0-200.0) 06/05/21 05:26 Total Bilirubin 0.30 mg/dL (0.1-1.2) 06/28/21 05:43 AST 19 units/L (5-40) 06/28/21 05:43 ALT 63 units/L (7-56) H 06/28/21 05:43 Alkaline Phosphatase 61 units/L (35-129) 06/28/21 05:43 Lactate Dehydrogenase 475 units/L (91-180) H 06/05/21 05:26 C-Reactive Protein 0.10 mg/dL (0.00-1.30) 06/05/21 05:26 Total Protein 6.5 g/dL (6.3-8.2) 06/28/21 05:43 Albumin 3.3 g/dL (3.9-5) L 06/28/21 05:43 Albumin/Globulin Ratio 1.0 % 06/28/21 05:43 Triglycerides < 9 mg/dL (2-149) 05/03/21 04:30 Procalcitonin < 0.05 ng/mL (<0.15) 05/23/21 09:50 Arterial Blood Glucose 403 mg/dL (65-95) H 05/03/21 04:49 Arterial Blood Ionized Calcium 4.9 mg/dL (4.6-5.3) 05/03/21 04:49 Coronavirus (PCR) Positive (Negative) A 06/05/21 08:30 Amos/IV: Voiding Method Bedside Commode Active Medications - Current Medications Current Medications: Generic Name Dose Route Start Last Admin Trade Name Freq PRN Reason Stop Dose Admin Acetaminophen 650 mg 07/02/21 10:00 07/02/21 09:58 Acetaminophen 325 Mg Tab PO 650 mg Q4H TUTU Administration Albuterol 2.5 mg 04/16/21 13:39 04/21/21 20:39 Albuterol 2.5 Mg/3 Ml Nebu IH 2.5 mg Q4HRT PRN Administration Shortness Of Breath Ascorbic Acid 500 mg 04/24/21 10:00 07/02/21 09:07 Ascorbic Acid 500 Mg Tab PO 500 mg QDAY TUTU Administration Bisacodyl 10 mg 06/10/21 18:00 Bisacodyl 10 Mg Rect Supp [place] QDAY PRN Constipation Cholecalciferol 1,000 unit 04/17/21 10:00 07/02/21 09:07 Cholecalciferol (Vit D3) 1000 Unit (25 Mcg) Tab PO 1,000 unit QDAY TUTU Administration Clonazepam 1 mg 05/29/21 08:06 07/02/21 09:59 Clonazepam 0.5 Mg Tab PO 1 mg Q8H PRN Administration Anxiety Dextrose 50 ml 04/18/21 07:30 04/28/21 09:59 Dextrose 50% In Water (25gm) 50 Ml Syringe IV 50 ml Q30MIN PRN Administration Hypoglycemia Protocol Docusate Sodium 100 mg 04/30/21 10:00 07/02/21 09:07 Docusate Sodium 100 Mg Cap PO 100 mg BID TUTU Administration Enoxaparin Sodium 40 mg 05/19/21 22:00 07/01/21 22:58 Enoxaparin 40 Mg/0.4 Ml Inj SUB-Q 40 mg QDAY@2200 TUTU Administration Protocol Insulin Glargine 15 units 06/25/21 10:00 07/02/21 09:06 Insulin Glargine 100 Units/Ml SUB-Q 15 units DAILY TUTU Administration Insulin Human Lispro 0 unit 05/18/21 12:00 07/02/21 09:06 Insulin Lispro 100 Unit/Ml SUB-Q Not Given [facility] Protocol Lorazepam 1 mg 05/25/21 14:40 06/11/21 23:55 Lorazepam 2 Mg/Ml Vial IV 1 mg Q6H PRN Administration Agitation Magnesium Hydroxide 30 ml 06/07/21 16:30 06/11/21 11:06 Magnesium Hydroxide (Mom) Oral Liqd Udc PO 30 ml QDAY PRN Administration Constipation Ondansetron HCl 4 mg 04/16/21 14:00 05/30/21 10:07 Ondansetron 4 Mg/2 Ml Inj IV 4 mg Q8H PRN Administration Nausea And Vomiting Prednisone 10 mg 07/03/21 10:00 Prednisone 10 Mg Tab PO QDAY TUTU Senna 17.2 mg 05/02/21 22:00 07/01/21 22:58 Sennosides 8.6 Mg Tab PO 17.2 mg QHS TUTU Administration Sodium Chloride 10 ml 04/16/21 22:00 07/02/21 09:07 Sodium Chloride 0.9% 10 Ml Flush Syringe IV 10 ml BID TUTU Administration Sodium Chloride 10 ml 04/16/21 13:39 05/22/21 15:21 Sodium Chloride 0.9% 10 Ml Flush Syringe IV 10 ml PRN PRN Administration LINE FLUSH Zinc Sulfate 220 mg 04/16/21 22:00 07/02/21 09:07 Zinc Sulfate 220 Mg Cap PO 220 mg BID TUTU Administration Zolpidem Tartrate 10 mg 05/26/21 08:56 07/01/21 22:58 Zolpidem 5 Mg Tab PO 10 mg QHS PRN Administration Insomnia Nutrition/Malnutrition Assess - Dietary Evaluation Nutrition/Malnutrition Findings: Nutrition Notes Start: 04/23/21 07:41 Freq: Status: Active Protocol: Document 06/04/21 11:07 FABIAN (Rec: 06/04/21 11:07 FABIAN [id number]) Nutrition Notes Initial or Follow up Brief Note Current Diagnosis Respiratory Failure Other Pertinent Diagnosis oral thrush, COVID-19 pneu Current Diet GI soft Subjective/Other Information Pt continues to eat 75-100% of meals. Nutrition Intervention Revisit per MD consult or patient Sign Off request:
[2021-07-02] MEDS: ZOLPIDEM 5 MG TAB PO PRN (22:40)
[2021-07-02] MEDS: SENNOSIDES 8.6 MG TAB PO SCH (22:40)
[2021-07-02] MEDS: ENOXAPARIN 40 MG/0.4 ML INJ SUB-Q SCH (22:42)
[2021-07-03 06:18] LABS: Basophils # (Auto) 0.1 K/mm3 (0.0-0.1); Eosinophils % (Auto) 0.6 % (0.0-4.3); Hematocrit 39.7 % (30.3-42.9); Hemoglobin 12.6 gm/dl (10.1-14.3); Lymphocytes # (Auto) 2.3 K/mm3 (1.2-5.4); Lymphocytes % (Auto) 30.5 % (13.4-35.0); Mean Corpuscular HGB Conc 32 % (30-34); Mean Corpuscular Volume 96 fl (79-97); Monocytes # (Auto) 0.5 K/mm3 (0.0-0.8); Monocytes % (Auto) 5.9 % (0.0-7.3); Platelet Count 279 K/mm3 (140-440); Red Blood Count 4.14 M/mm3 (3.65-5.03); Red Cell Distribution Width 19.6 % (13.2-15.2)
[2021-07-03 06:42] LABS: Blood Urea Nitrogen 11 mg/dL (7-17); Calcium 9.3 mg/dL (8.4-10.2); Hemolysis Index 3
[2021-07-03 06:43] LABS: BUN/Creatinine Ratio 37
[2021-07-03] MEDS: ASCORBIC ACID 500 MG TAB PO SCH (09:23)
[2021-07-03] MEDS: POTASSIUM CHLORIDE ER 20 MEQ TAB PO SCH ×2 (09:23→12:25)
[2021-07-03] MEDS: INSULIN LISPRO 100 UNIT/ML SUB-Q SCH ×3 (09:24→22:00)
[2021-07-03] MEDS: INSULIN GLARGINE 100 UNITS/ML SUB-Q SCH (09:24)
[2021-07-03] MEDS: CHOLECALCIFEROL (VIT D3) 1000 UNIT (25 mcg) TAB PO SCH (09:24)
[2021-07-03] MEDS: predniSONE 10 MG TAB PO SCH (09:24)
[2021-07-03] MEDS: DOCUSATE SODIUM 100 MG CAP PO SCH (09:24)
[2021-07-03] MEDS: ZINC SULFATE 220 MG CAP PO SCH ×2 (09:24→21:54)
--- NOTE | 2021-07-03 12:14 | Progress Note ---
Assessment and Plan Assessment and plan: Assessment and plan: Admit 04/16 from ER 50 YO Female with GERD, Obesity, HLD presents to ED for evaluation. Patient reports "I cannot breathe". Patient states that she has experienced subjective fever, shortness of breath, malaise, body aches, dry cough, and shortness of emily ath over the past 1 week with progressively worsening symptoms over the same timeframe. EMS was notified and upon arrival the patient was found to be in distress and subsequent transported to [facility] for further care and evaluation of the aforementioned symptoms. The patient was seen and evaluated in the emergency department. All lab and imaging studies reviewed. Patient found to have a pulse oximetry of 86% with exertion on room air which is consistent with acute hypoxemic respiratory failure. Patient with chest x-ray which revealed bilateral pneumonia. Patient admitted to medical floor and initiated him on pneumonia protocol as well as coronavirus protocol. Patient knowledges fever but denies chills, chest pain, palpitation, skin rash, recent ill contacts, or known exposure to COVID-19. Prior admission on 01/21/2017 reviewed. All medication listed at time of admission has been reconciled. Patient is unvaccinated for coronavirus infection. CXR: Bilateral Pneumonia 04/17: Patient seen and examined, still uncomfortable with Hypoxic respiratory failure and on oxygen, will continue to steroids therapy, start patient on Remdesivir, ID consulted, Pulmonary consult placed. 04/18: Patient seen and examined, she is currently being changed to High flow NC due to worsening HYPOXIA, will transfer to IMCU, Pulmonary and ID following. Will also give a dose of Lasix today. Monitor Inflammatory markers. 04/19: Patient seen and examined still on high flow due to hypoxia. Appears a bit more comfortable today than yesterday. Cough has decreased in frequency. We will continue high dose Dexameathasone to complete 10 days. continue on Remdesivir 200 mg IV q day x 1 followed by 100 mg IV q day x 4 days -Obtain q48-72h inflammatory markers - ferritin, Ddimer, CRP, LDH Will also give lasix daily for the next 3 days and monitor renal function. Family updated. Continue prone positioning as tolerated 04/20: Patient has some desaturation episodes yesterday was placed on BiPAP. Discussed with ICU team for bed availability for patient to be transferred up. Continue prone position as tolerated. 04/21: Patient remains with profound hypoxia secondary to COVID pneumonia. -Continue steroids -Continue remedesir -S/P Actmera 04/22: Patient remains on steroids and remdesivir. ABG shows persistent hypoxia. We will continue current management additional trial of Lasix for the next few days to see if any improvement. Monitor inflammatory markers as needed. Prognosis is guarded remains on high flow 04/23; patient was treated with remdesivir and Actemra. Continue steroid. Patient's prognosis is guarded. 04/24; patient is on steroid. Patient is currently on BiPAP. Prognosis is guar ded. Pulmonary is following. Patient was given Lasix and Ativan. 04/25; continue steroid. Patient was on 40 L of high flow oxygen with saturation was 88%. Pulmonary is following. Prognosis is guarded. Patient was given lasix and ativan. 04/26; patient is on BiPAP and Precedex. Prognosis is guarded. 04/27; patient is on BiPAP and Precedex. Patient will finish steroid today and will start on Solu-Medrol tomorrow. Prognosis is guarded. Blood pressure is better today. Hold Lasix. 04/28 patient is on 100 Fio2 via BIPAP. moderately dyspneic, pulmonary note reviewed, lab results reviewed 04/29 no acute events- see systems review above 04/30 no acute events overnight - on airvo today- TPN started -see systems review above 05-01 no acute events overnight- tolerating airvo- see systems review above - no acute events overnight; tolerating airvo this AM- see systems review above 05/03: Patient remains on full high flow oxygen. No acute events overnight 05/04: Patient remains on BiPAP this morning at 70%. Returning to service Patient initially managed in the ICU and then transfered to the floor 06/25: Patient remains on full oxygen with high flow, encouraged to prone at night time. Spoke to Night nursing staff to ensure assisting the patient Prone. Continue steroid therapy, will discuss with Pulmonary about trying additional lasix. Plan discussed with patient and family. 06/26: Patient already on Lasix daily, Hypokalemia- Replace K. Continue to encourage Proning. Remains on high flow. 06/27: Continue supportive care unfortunately had to go up on her oxygen to 70% FiO2 prognosis remains guarded continue to encourage proning. 06/28: Continue supportive care, Encourage Proning 06/29: Mild hypokalemia noted yesterday will be replaced as it was not corrected yesterday we will recheck BMP in a.m. Continue IV Lasix. Monitor renal funct ion. 06/30: Give additional potassium for better control. Continue supportive care. Continue IV Lasix. Continue to encourage proning again discussed with the patient via soaping department supervisor. He verbalized understanding 07/01: Brief summary patient seen and examined this morning continues to show improvement FiO2 demand down to 45% on 30 L on high flow. Patient is a 50-year-old male who was admitted with COVID-19 today is day 76 of her hospital stay she was initially managed in the ICU and now has been transferred to the floor. She remains on low-dose steroid therapy following completion of re mdesivir and recommended steroid. She is encouraged to continue to prone and the nights that she has done this has shown some improvement. She is still probably a long way from being discharged. Intermittent monitoring off electrolytes as she has had some episode of hyponatremia and hypomagnesemia is recommended. She is concerned about puffiness in her face which is likely steroid-induced I have discussed this with her that it will improve following discontinuation of steroid. In the meantime I have held her Lasix as we have been diuresing her for majority of her stay and this should be reevaluated the next few days to see if she will benefit from further diuresis. Pulmonary is on board #Acute hypoxemic respiratory failure-stable -Supplemental oxygen, pulse oximetry, nebulizer therapy, proposition while in bed, noninvasive positive pressure ventilation as clinically indicated. Patient remains on high flow supplemental oxygen without much improvement of hypoxia. Will continue to attempt to wean O2 as tolerated. #Sepsis secondary to COVID 19-resolved #Pneumonia-stable -Pneumonia protocol: Chest x-ray, CBC, CMP, IV antibiotic therapy, blood culture. #Coronavirus infection -Supportive care, infectious disease service consulted. Continue medical management. #Iatrogenic diarrhea - likely 2/2 to scheduled bowel regimen; discontinued all bowel regimen - will continue to monitor. Consider loperamide if symptoms don't resolve #Anxiety -Counseled patient about relaxation techniques -Can consider medical management if needed; patient expressed understanding #Right eye- viral conjunctivitis vs subconjunctival hemorrhage -continue to monitor treated with ofloxacin ou x 5 days - artificial tears has not provided relief #Protein gisella malnutrition given inc metabolic demand with resp insufficiency Now off TPN #Diabetes mellitus with Hyperglycemia Noted hypoglycemia will wean down lantus. glargine HS SSI AC/HS #- volume overload; hypona; hypoMg #DVT prophylaxis -SCD to bilateral lower extremities while in bed, prophylactic anticoagulation #Deconditioning - ordering PT/OT for further evaluation Disposition Plan: Continue medical management Total Time Spent with Patient (Minutes): 40 History Interval history: The patient endorses having multiple episodes of diarrhea and abdominal cramping that started late last night. Hospitalist Physical - Constitutional Vitals: Temp Pulse Resp BP Pulse Ox 98.0 F 103 H 16 140/80 87 07/03/21 05:15 07/03/21 05:15 07/03/21 05:15 07/03/21 05:15 07/03/21 05:15 General appearance: Present: mild distress, well-nourished, obese - EENT Eyes: Present: PERRL, EOM intact ENT: hearing intact, clear oral mucosa, dentition normal - Neck Neck: Present: supple, normal ROM - Respiratory Respiratory effort: normal (On high flow 35 L 50% FiO2) - Cardiovascular Rhythm: regular Heart Sounds: Present: S1 & S2 - Extremities Extremities: no ischemia, pulses intact, pulses symmetrical, No edema, normal temperature, normal color Peripheral Pulses: within normal limits - Abdominal General gastrointestinal: soft, non-distended, normal bowel sounds Localized gastrointestinal: tender: diffuse - Integumentary Integumentary: Present: clear, warm, dry - Psychiatric Psychiatric: appropriate mood/affect, intact judgment & insight, memory intact - Neurologic Neurologic: CNII-XII intact, moves all extremities - Allied Health Allied health notes reviewed: nursing Results - Labs CBC & Chem 7: 07/03/21 05:46 07/03/21 05:46 Labs: Laboratory Last Values WBC 7.6 K/mm3 (4.5-11.0) 07/03/21 05:46 RBC 4.14 M/mm3 (3.65-5.03) 07/03/21 05:46 Hgb 12.6 gm/dl (10.1-14.3) 07/03/21 05:46 Hct 39.7 % (30.3-42.9) 07/03/21 05:46 MCV 96 fl (79-97) 07/03/21 05:46 MCH 30 pg (28-32) 07/03/21 05:46 MCHC 32 % (30-34) 07/03/21 05:46 RDW 19.6 % (13.2-15.2) H 07/03/21 05:46 Plt Count 279 K/mm3 (140-440) 07/03/21 05:46 Lymph % (Auto) 30.5 % (13.4-35.0) 07/03/21 05:46 Major % (Auto) 5.9 % (0.0-7.3) 07/03/21 05:46 Eos % (Auto) 0.6 % (0.0-4.3) 07/03/21 05:46 Baso % (Auto) 1.0 % (0.0-1.8) 07/03/21 05:46 Lymph # (Auto) 2.3 K/mm3 (1.2-5.4) 07/03/21 05:46 Major # (Auto) 0.5 K/mm3 (0.0-0.8) 07/03/21 05:46 Eos # (Auto) 0.0 K/mm3 (0.0-0.4) 07/03/21 05:46 Baso # (Auto) 0.1 K/mm3 (0.0-0.1) 07/03/21 05:46 Add Manual Diff Complete 05/12/21 04:05 Total Counted 100 05/12/21 04:05 Seg Neutrophils % 62.0 % (40.0-70.0) 07/03/21 05:46 Seg Neuts % (Manual) 94.0 % (40.0-70.0) H 05/12/21 04:05 Band Neutrophils % 1.0 % 05/12/21 04:05 Lymphocytes % (Manual) 4.0 % (13.4-35.0) L 05/12/21 04:05 Monocytes % (Manual) 1.0 % (0.0-7.3) 05/12/21 04:05 Nucleated RBC % Not Reportable 05/12/21 04:05 Seg Neutrophils # 4.7 K/mm3 (1.8-7.7) 07/03/21 05:46 Seg Neutrophils # Man 6.4 K/mm3 (1.8-7.7) 05/12/21 04:05 Band Neutrophils # 0.1 K/mm3 05/12/21 04:05 Lymphocytes # (Manual) 0.3 K/mm3 (1.2-5.4) L 05/12/21 04:05 Abs React Lymphs (Man) 0.0 K/mm3 05/12/21 04:05 Monocytes # (Manual) 0.1 K/mm3 (0.0-0.8) 05/12/21 04:05 Eosinophils # (Manual) 0.0 K/mm3 (0.0-0.4) 05/12/21 04:05 Basophils # (Manual) 0.0 K/mm3 (0.0-0.1) 05/12/21 04:05 Metamyelocytes # 0.0 K/mm3 05/12/21 04:05 Myelocytes # 0.0 K/mm3 05/12/21 04:05 Promyelocytes # 0.0 K/mm3 05/12/21 04:05 Blast Cells # 0.0 K/mm3 05/12/21 04:05 WBC Morphology Not Reportable 05/12/21 04:05 Hypersegmented Neuts Not Reportable 05/12/21 04:05 Hyposegmented Neuts Not Reportable 05/12/21 04:05 Hypogranular Neuts Not Reportable 05/12/21 04:05 Smudge Cells Not Reportable 05/12/21 04:05 Toxic Granulation Not Reportable 05/12/21 04:05 Toxic Vacuolation Not Reportable 05/12/21 04:05 Dohle Bodies Not Reportable 05/12/21 04:05 Pelger-Huet Anomaly Not Reportable 05/12/21 04:05 Janelle Rods Not Reportable 05/12/21 04:05 Platelet Estimate Consistent w auto 05/12/21 04:05 Clumped Platelets Not Reportable 05/12/21 04:05 Plt Clumps, EDTA Not Reportable 05/12/21 04:05 Large Platelets Not Reportable 05/12/21 04:05 Giant Platelets Not Reportable 05/12/21 04:05 Platelet Satelliting Not Reportable 05/12/21 04:05 Plt Morphology Comment Not Reportable 05/12/21 04:05 RBC Morphology Normal 05/12/21 04:05 Dimorphic RBCs Not Reportable 05/12/21 04:05 Polychromasia Not Reportable 05/12/21 04:05 Hypochromasia Not Reportable 05/12/21 04:05 Poikilocytosis Not Reportable 05/12/21 04:05 Anisocytosis Not Reportable 05/12/21 04:05 Microcytosis Not Reportable 05/12/21 04:05 Macrocytosis Not Reportable 05/12/21 04:05 Spherocytes Not Reportable 05/12/21 04:05 Pappenheimer Bodies Not Reportable 05/12/21 04:05 Sickle Cells Not Reportable 05/12/21 04:05 Target Cells Not Reportable 05/12/21 04:05 Tear Drop Cells Not Reportable 05/12/21 04:05 Ovalocytes Not Reportable 05/12/21 04:05 Helmet Cells Not Reportable 05/12/21 04:05 Ahuja-Lookingglass Bodies Not Reportable 05/12/21 04:05 Montrose Rings Not Reportable 05/12/21 04:05 Crow Cells Not Reportable 05/12/21 04:05 Bite Cells Not Reportable 05/12/21 04:05 Crenated Cell Not Reportable 05/12/21 04:05 Elliptocytes Not Reportable 05/12/21 04:05 Acanthocytes (Spur) Not Reportable 05/12/21 04:05 Rouleaux Not Reportable 05/12/21 04:05 Hemoglobin C Crystals Not Reportable 05/12/21 04:05 Schistocytes Not Reportable 05/12/21 04:05 Malaria parasites Not Reportable 05/12/21 04:05 Justin Bodies Not Reportable 05/12/21 04:05 Hem Pathologist Commnt No 05/12/21 04:05 D-Dimer 488.49 ng/mlDDU (0-234) H 06/05/21 05:26 ABG pH 7.403 pH Units (7.350-7.450) 05/14/21 02:23 POC ABG pCO2 45.4 mmHg (32.0-48.0) 05/03/21 04:49 ABG pCO2 50.2 mm Hg 05/14/21 02:23 POC ABG pO2 65.3 mmHg (83-108) L 05/03/21 04:49 ABG pO2 130.3 mm Hg (80.0-90.0) H 05/14/21 02:23 POC ABG HCO3 18.5 05/03/21 04:49 ABG HCO3 30.6 mmol/L (20.0-26.0) H 05/14/21 02:23 ABG O2 Saturation 98.5 % (95.0-99.0) 05/14/21 02:23 ABG O2 Content 17.9 (0.0-44) 05/14/21 02:23 POC ABG Base Excess -8.9 05/03/21 04:49 ABG Base Excess 4.9 mmol/L (-2.0-3.0) H 05/14/21 02:23 ABG Hemoglobin 13.0 gm/dl (12.0-16.0) 05/14/21 02:23 ABG Oxyhemoglobin 87.8 (94-98) L 05/03/21 04:49 ABG Carboxyhemoglobin 1.4 % (0.0-5.0) 05/14/21 02:23 ABG Methemoglobin 0.6 % (0.0-1.5) 05/14/21 02:23 ABG Sodium 133.0 mmol/L (136.0-145.0) L 05/03/21 04:49 ABG Potassium 3.9 mmol/L (3.40-4.50) 05/03/21 04:49 ABG Chloride 97.0 mmol/L (98-107) L 05/03/21 04:49 ABG Glucose 403 mg/dL (65-95) H 05/03/21 04:49 Oxyhemoglobin 96.5 % (95.0-99.0) 05/14/21 02:23 Carboxyhemoglobin 0.6 (0.5-1.5) 05/03/21 04:49 FiO2 90 % 05/14/21 02:23 FiO2 % 100.0 05/03/21 04:49 Sodium 143 mmol/L (137-145) 07/03/21 05:46 Potassium 3.2 mmol/L (3.6-5.0) L 07/03/21 05:46 Chloride 105.9 mmol/L (98-107) 07/03/21 05:46 Carbon Dioxide 26 mmol/L (22-30) 07/03/21 05:46 Anion Gap 14 mmol/L 07/03/21 05:46 BUN 11 mg/dL (7-17) 07/03/21 05:46 Creatinine 0.3 mg/dL (0.6-1.2) L 07/03/21 05:46 Estimated GFR > 60 ml/min 07/03/21 05:46 BUN/Creatinine Ratio 37 % 07/03/21 05:46 Glucose 84 mg/dL (65-100) 07/03/21 05:46 POC Glucose 101 mg/dL (70-105) 07/03/21 07:57 Hemoglobin A1c 8.5 % (4-6) H 04/18/21 07:36 Calcium 9.3 mg/dL (8.4-10.2) 07/03/21 05:46 Phosphorus 4.00 mg/dL (2.5-4.5) 07/03/21 05:46 Magnesium 1.90 mg/dL (1.7-2.3) 07/03/21 05:46 Ferritin 187.7 ng/mL (10.0-200.0) 06/05/21 05:26 Total Bilirubin 0.30 mg/dL (0.1-1.2) 06/28/21 05:43 AST 19 units/L (5-40) 06/28/21 05:43 ALT 63 units/L (7-56) H 06/28/21 05:43 Alkaline Phosphatase 61 units/L (35-129) 06/28/21 05:43 Lactate Dehydrogenase 475 units/L (91-180) H 06/05/21 05:26 C-Reactive Protein 0.10 mg/dL (0.00-1.30) 06/05/21 05:26 Total Protein 6.5 g/dL (6.3-8.2) 06/28/21 05:43 Albumin 3.3 g/dL (3.9-5) L 06/28/21 05:43 Albumin/Globulin Ratio 1.0 % 06/28/21 05:43 Triglycerides < 9 mg/dL (2-149) 05/03/21 04:30 Procalcitonin < 0.05 ng/mL (<0.15) 05/23/21 09:50 Arterial Blood Glucose 403 mg/dL (65-95) H 05/03/21 04:49 Arterial Blood Ionized Calcium 4.9 mg/dL (4.6-5.3) 05/03/21 04:49 Coronavirus (PCR) Positive (Negative) A 06/05/21 08:30 Amos/IV: Voiding Method Bedside Commode Active Medications - Current Medications Current Medications: Generic Name Dose Route Start Last Admin Trade Name Freq PRN Reason Stop Dose Admin Acetaminophen 650 mg 07/02/21 17:48 Acetaminophen 325 Mg Tab PO Q4H PRN Pain, Mild (1-3) Albuterol 2.5 mg 04/16/21 13:39 04/21/21 20:39 Albuterol 2.5 Mg/3 Ml Nebu IH 2.5 mg Q4HRT PRN Administration Shortness Of Breath Ascorbic Acid 500 mg 04/24/21 10:00 07/03/21 09:23 Ascorbic Acid 500 Mg Tab PO 500 mg QDAY TUTU Administration Cholecalciferol 1,000 unit 04/17/21 10:00 07/03/21 09:24 Cholecalciferol (Vit D3) 1000 Unit (25 Mcg) Tab PO 1,000 unit QDAY TUTU Administration Clonazepam 1 mg 05/29/21 08:06 07/02/21 09:59 Clonazepam 0.5 Mg Tab PO 1 mg Q8H PRN Administration Anxiety Dextrose 50 ml 04/18/21 07:30 04/28/21 09:59 Dextrose 50% In Water (25gm) 50 Ml Syringe IV 50 ml Q30MIN PRN Administration Hypoglycemia Protocol Enoxaparin Sodium 40 mg 05/19/21 22:00 07/02/21 22:42 Enoxaparin 40 Mg/0.4 Ml Inj SUB-Q 40 mg QDAY@2200 TUTU Administration Protocol Insulin Glargine 15 units 06/25/21 10:00 07/03/21 09:24 Insulin Glargine 100 Units/Ml SUB-Q Not Given DAILY TUTU Insulin Human Lispro 0 unit 05/18/21 12:00 07/03/21 09:24 Insulin Lispro 100 Unit/Ml SUB-Q Not Given ACHS [facility] Protocol Lorazepam 1 mg 05/25/21 14:40 06/11/21 23:55 Lorazepam 2 Mg/Ml Vial IV 1 mg Q6H PRN Administration Agitation Magnesium Hydroxide 30 ml 06/07/21 16:30 06/11/21 11:06 Magnesium Hydroxide (Mom) Oral Liqd Udc PO 30 ml QDAY PRN Administration Constipation Ondansetron HCl 4 mg 04/16/21 14:00 05/30/21 10:07 Ondansetron 4 Mg/2 Ml Inj IV 4 mg Q8H PRN Administration Nausea And Vomiting Potassium Chloride 40 meq 07/03/21 10:00 07/03/21 09:23 Potassium Chloride Er 20 Meq Tab PO 07/03/21 13:59 40 meq 0800,1300 TUTU Administration Prednisone 10 mg 07/03/21 10:00 07/03/21 09:24 Prednisone 10 Mg Tab PO 10 mg QDAY TUTU Administration Sodium Chloride 10 ml 04/16/21 22:00 07/03/21 09:24 Sodium Chloride 0.9% 10 Ml Flush Syringe IV 10 ml BID TUTU Administration Sodium Chloride 10 ml 04/16/21 13:39 05/22/21 15:21 Sodium Chloride 0.9% 10 Ml Flush Syringe IV 10 ml PRN PRN Administration LINE FLUSH Zinc Sulfate 220 mg 04/16/21 22:00 07/03/21 09:24 Zinc Sulfate 220 Mg Cap PO 220 mg BID TUTU Administration Zolpidem Tartrate 10 mg 05/26/21 08:56 07/02/21 22:40 Zolpidem 5 Mg Tab PO 10 mg QHS PRN Administration Insomnia Nutrition/Malnutrition Assess - Dietary Evaluation Nutrition/Malnutrition Findings: Nutrition Notes Start: 04/23/21 07:41 Freq: Status: Active Protocol: Document 06/04/21 11:07 FABIAN (Rec: 06/04/21 11:07 FABIAN [id number]) Nutrition Notes Initial or Follow up Brief Note Current Diagnosis Respiratory Failure Other Pertinent Diagnosis oral thrush, COVID-19 pneu Current Diet GI soft Subjective/Other Information Pt continues to eat 75-100% of meals. Nutrition Intervention Revisit per MD consult or patient Sign Off request:
[2021-07-03] MEDS: ENOXAPARIN 40 MG/0.4 ML INJ SUB-Q SCH (21:54)
[2021-07-03] MEDS: ZOLPIDEM 5 MG TAB PO PRN (22:02)
[2021-07-03] MEDS: ACETAMINOPHEN 325 MG TAB PO PRN (22:02)
[2021-07-04 07:21] LABS: Blood Urea Nitrogen 11 mg/dL (7-17); Hemolysis Index 5
[2021-07-04 07:28] LABS: BUN/Creatinine Ratio 37
[2021-07-04] MEDS: INSULIN LISPRO 100 UNIT/ML SUB-Q SCH ×4 (07:30→16:30)
[2021-07-04] MEDS: INSULIN GLARGINE 100 UNITS/ML SUB-Q SCH (10:00)
[2021-07-04] MEDS: ASCORBIC ACID 500 MG TAB PO SCH (10:55)
[2021-07-04] MEDS: CHOLECALCIFEROL (VIT D3) 1000 UNIT (25 mcg) TAB PO SCH (10:56)
[2021-07-04] MEDS: ZINC SULFATE 220 MG CAP PO SCH ×2 (10:56→22:00)
[2021-07-04] MEDS: predniSONE 10 MG TAB PO SCH (10:56)
--- NOTE | 2021-07-04 11:22 | Progress Note ---
Assessment and Plan Assessment and plan: Assessment and plan: Admit 04/16 from ER 50 YO Female with GERD, Obesity, HLD presents to ED for evaluation. Patient reports "I cannot breathe". Patient states that she has experienced subjective fever, shortness of breath, malaise, body aches, dry cough, and shortness of emily ath over the past 1 week with progressively worsening symptoms over the same timeframe. EMS was notified and upon arrival the patient was found to be in distress and subsequent transported to [facility] for further care and evaluation of the aforementioned symptoms. The patient was seen and evaluated in the emergency department. All lab and imaging studies reviewed. Patient found to have a pulse oximetry of 86% with exertion on room air which is consistent with acute hypoxemic respiratory failure. Patient with chest x-ray which revealed bilateral pneumonia. Patient admitted to medical floor and initiated him on pneumonia protocol as well as coronavirus protocol. Patient knowledges fever but denies chills, chest pain, palpitation, skin rash, recent ill contacts, or known exposure to COVID-19. Prior admission on 01/21/2017 reviewed. All medication listed at time of admission has been reconciled. Patient is unvaccinated for coronavirus infection. CXR: Bilateral Pneumonia 04/17: Patient seen and examined, still uncomfortable with Hypoxic respiratory failure and on oxygen, will continue to steroids therapy, start patient on Remdesivir, ID consulted, Pulmonary consult placed. 04/18: Patient seen and examined, she is currently being changed to High flow NC due to worsening HYPOXIA, will transfer to IMCU, Pulmonary and ID following. Will also give a dose of Lasix today. Monitor Inflammatory markers. 04/19: Patient seen and examined still on high flow due to hypoxia. Appears a bit more comfortable today than yesterday. Cough has decreased in frequency. We will continue high dose Dexameathasone to complete 10 days. continue on Remdesivir 200 mg IV q day x 1 followed by 100 mg IV q day x 4 days -Obtain q48-72h inflammatory markers - ferritin, Ddimer, CRP, LDH Will also give lasix daily for the next 3 days and monitor renal function. Family updated. Continue prone positioning as tolerated 04/20: Patient has some desaturation episodes yesterday was placed on BiPAP. Discussed with ICU team for bed availability for patient to be transferred up. Continue prone position as tolerated. 04/21: Patient remains with profound hypoxia secondary to COVID pneumonia. -Continue steroids -Continue remedesir -S/P Actmera 04/22: Patient remains on steroids and remdesivir. ABG shows persistent hypoxia. We will continue current management additional trial of Lasix for the next few days to see if any improvement. Monitor inflammatory markers as needed. Prognosis is guarded remains on high flow 04/23; patient was treated with remdesivir and Actemra. Continue steroid. Patient's prognosis is guarded. 04/24; patient is on steroid. Patient is currently on BiPAP. Prognosis is guar ded. Pulmonary is following. Patient was given Lasix and Ativan. 04/25; continue steroid. Patient was on 40 L of high flow oxygen with saturation was 88%. Pulmonary is following. Prognosis is guarded. Patient was given lasix and ativan. 04/26; patient is on BiPAP and Precedex. Prognosis is guarded. 04/27; patient is on BiPAP and Precedex. Patient will finish steroid today and will start on Solu-Medrol tomorrow. Prognosis is guarded. Blood pressure is better today. Hold Lasix. 04/28 patient is on 100 Fio2 via BIPAP. moderately dyspneic, pulmonary note reviewed, lab results reviewed 04/29 no acute events- see systems review above 04/30 no acute events overnight - on airvo today- TPN started -see systems review above 05-01 no acute events overnight- tolerating airvo- see systems review above - no acute events overnight; tolerating airvo this AM- see systems review above 05/03: Patient remains on full high flow oxygen. No acute events overnight 05/04: Patient remains on BiPAP this morning at 70%. Returning to service Patient initially managed in the ICU and then transfered to the floor 06/25: Patient remains on full oxygen with high flow, encouraged to prone at night time. Spoke to Night nursing staff to ensure assisting the patient Prone. Continue steroid therapy, will discuss with Pulmonary about trying additional lasix. Plan discussed with patient and family. 06/26: Patient already on Lasix daily, Hypokalemia- Replace K. Continue to encourage Proning. Remains on high flow. 06/27: Continue supportive care unfortunately had to go up on her oxygen to 70% FiO2 prognosis remains guarded continue to encourage proning. 06/28: Continue supportive care, Encourage Proning 06/29: Mild hypokalemia noted yesterday will be replaced as it was not corrected yesterday we will recheck BMP in a.m. Continue IV Lasix. Monitor renal funct ion. 06/30: Give additional potassium for better control. Continue supportive care. Continue IV Lasix. Continue to encourage proning again discussed with the patient via mud analysis supervisor. He verbalized understanding 07/01: Brief summary patient seen and examined this morning continues to show improvement FiO2 demand down to 45% on 30 L on high flow. Patient is a 50-year-old male who was admitted with COVID-19 today is day 76 of her hospital stay she was initially managed in the ICU and now has been transferred to the floor. She remains on low-dose steroid therapy following completion of re mdesivir and recommended steroid. She is encouraged to continue to prone and the nights that she has done this has shown some improvement. She is still probably a long way from being discharged. Intermittent monitoring off electrolytes as she has had some episode of hyponatremia and hypomagnesemia is recommended. She is concerned about puffiness in her face which is likely steroid-induced I have discussed this with her that it will improve following discontinuation of steroid. In the meantime I have held her Lasix as we have been diuresing her for majority of her stay and this should be reevaluated the next few days to see if she will benefit from further diuresis. Pulmonary is on board #Acute hypoxemic respiratory failure -Titrated high flow nasal cannula to 40 L 100% FiO2 (previously 40 L 60% FiO2); if patient remains tachypneic, will transition to BiPAP -Likely worsening in the setting of worsening anxiety -Pulmonology on board; appreciate recommendations #Sepsis secondary to COVID 19-resolved #Pneumonia-stable -Pneumonia protocol: Chest x-ray, CBC, CMP, IV antibiotic therapy, blood culture. #Coronavirus infection -Supportive care, infectious disease service consulted. Continue medical manage ment. #Iatrogenic diarrhea - likely 2/2 to scheduled bowel regimen; discontinued all bowel regimen - will continue to monitor. Consider loperamide if symptoms don't resolve #Anxiety -Counseled patient about relaxation techniques -Starting Xanax 5 mg daily; will continue to monitor #Right eye- viral conjunctivitis vs subconjunctival hemorrhage -continue to monitor treated with ofloxacin ou x 5 days - artificial tears has not provided relief #Protein gisella malnutrition given inc metabolic demand with resp insufficiency -No longer on TPN #Diabetes mellitus with Hyperglycemia -Continue glargine 15 units daily with mild SSI and Accu-Cheks with meals -Blood sugar goal [id number] while #- volume overload; hypona; hypoMg #DVT prophylaxis -SCD to bilateral lower extremities while in bed, prophylactic anticoagulation #Deconditioning -PT/OT currently on board; appreciate recs -Patient will likely require SNF upon discharge given significant deconditioning Disposition Plan: Continue medical management Total Time Spent with Patient (Minutes): 40 History Interval history: Patient was seen extremely tachypneic this morning and complaining about being in respiratory distress. Hospitalist Physical - Constitutional Vitals: Temp Pulse Resp BP Pulse Ox 97.7 F 95 H 18 131/82 97 07/03/21 21:22 07/03/21 21:22 07/03/21 23:02 07/03/21 21:22 07/04/21 09:00 General appearance: Present: mild distress, well-nourished, obese - EENT Eyes: Present: PERRL, EOM intact ENT: hearing intact, clear oral mucosa, dentition normal - Neck Neck: Present: supple, normal ROM - Respiratory Respiratory effort: labored Respiratory: bilateral: diminished, rhonchi Details: On high flow 40 L 100% FiO2 - Cardiovascular Rhythm: regular Heart Sounds: Present: S1 & S2 - Extremities Extremities: no ischemia, pulses intact, pulses symmetrical, No edema, normal temperature, normal color Peripheral Pulses: within normal limits - Abdominal General gastrointestinal: soft, non-tender, non-distended, normal bowel sounds - Integumentary Integumentary: Present: clear, warm, dry - Psychiatric Psychiatric: appropriate mood/affect, intact judgment & insight, memory intact, cooperative, other (Anxious) - Neurologic Neurologic: CNII-XII intact, moves all extremities - Allied Health Allied health notes reviewed: nursing Results - Labs CBC & Chem 7: 07/03/21 05:46 07/04/21 06:35 Labs: Laboratory Last Values WBC 7.6 K/mm3 (4.5-11.0) 07/03/21 05:46 RBC 4.14 M/mm3 (3.65-5.03) 07/03/21 05:46 Hgb 12.6 gm/dl (10.1-14.3) 07/03/21 05:46 Hct 39.7 % (30.3-42.9) 07/03/21 05:46 MCV 96 fl (79-97) 07/03/21 05:46 MCH 30 pg (28-32) 07/03/21 05:46 MCHC 32 % (30-34) 07/03/21 05:46 RDW 19.6 % (13.2-15.2) H 07/03/21 05:46 Plt Count 279 K/mm3 (140-440) 07/03/21 05:46 Lymph % (Auto) 30.5 % (13.4-35.0) 07/03/21 05:46 [place] % (Auto) 5.9 % (0.0-7.3) 07/03/21 05:46 Eos % (Auto) 0.6 % (0.0-4.3) 07/03/21 05:46 Baso % (Auto) 1.0 % (0.0-1.8) 07/03/21 05:46 Lymph # (Auto) 2.3 K/mm3 (1.2-5.4) 07/03/21 05:46 [place] # (Auto) 0.5 K/mm3 (0.0-0.8) 07/03/21 05:46 Eos # (Auto) 0.0 K/mm3 (0.0-0.4) 07/03/21 05:46 Baso # (Auto) 0.1 K/mm3 (0.0-0.1) 07/03/21 05:46 Add Manual Diff Complete 05/12/21 04:05 Total Counted 100 05/12/21 04:05 Seg Neutrophils % 62.0 % (40.0-70.0) 07/03/21 05:46 Seg Neuts % (Manual) 94.0 % (40.0-70.0) H 05/12/21 04:05 Band Neutrophils % 1.0 % 05/12/21 04:05 Lymphocytes % (Manual) 4.0 % (13.4-35.0) L 05/12/21 04:05 Monocytes % (Manual) 1.0 % (0.0-7.3) 05/12/21 04:05 Nucleated RBC % Not Reportable 05/12/21 04:05 Seg Neutrophils # 4.7 K/mm3 (1.8-7.7) 07/03/21 05:46 Seg Neutrophils # Man 6.4 K/mm3 (1.8-7.7) 05/12/21 04:05 Band Neutrophils # 0.1 K/mm3 05/12/21 04:05 Lymphocytes # (Manual) 0.3 K/mm3 (1.2-5.4) L 05/12/21 04:05 Abs React Lymphs (Man) 0.0 K/mm3 05/12/21 04:05 Monocytes # (Manual) 0.1 K/mm3 (0.0-0.8) 05/12/21 04:05 Eosinophils # (Manual) 0.0 K/mm3 (0.0-0.4) 05/12/21 04:05 Basophils # (Manual) 0.0 K/mm3 (0.0-0.1) 05/12/21 04:05 Metamyelocytes # 0.0 K/mm3 05/12/21 04:05 Myelocytes # 0.0 K/mm3 05/12/21 04:05 Promyelocytes # 0.0 K/mm3 05/12/21 04:05 Blast Cells # 0.0 K/mm3 05/12/21 04:05 WBC Morphology Not Reportable 05/12/21 04:05 Hypersegmented Neuts Not Reportable 05/12/21 04:05 Hyposegmented Neuts Not Reportable 05/12/21 04:05 Hypogranular Neuts Not Reportable 05/12/21 04:05 Smudge Cells Not Reportable 05/12/21 04:05 Toxic Granulation Not Reportable 05/12/21 04:05 Toxic Vacuolation Not Reportable 05/12/21 04:05 Dohle Bodies Not Reportable 05/12/21 04:05 Pelger-Huet Anomaly Not Reportable 05/12/21 04:05 Janelle Rods Not Reportable 05/12/21 04:05 Platelet Estimate Consistent w auto 05/12/21 04:05 Clumped Platelets Not Reportable 05/12/21 04:05 Plt Clumps, EDTA Not Reportable 05/12/21 04:05 Large Platelets Not Reportable 05/12/21 04:05 Giant Platelets Not Reportable 05/12/21 04:05 Platelet Satelliting Not Reportable 05/12/21 04:05 Plt Morphology Comment Not Reportable 05/12/21 04:05 RBC Morphology Normal 05/12/21 04:05 Dimorphic RBCs Not Reportable 05/12/21 04:05 Polychromasia Not Reportable 05/12/21 04:05 Hypochromasia Not Reportable 05/12/21 04:05 Poikilocytosis Not Reportable 05/12/21 04:05 Anisocytosis Not Reportable 05/12/21 04:05 Microcytosis Not Reportable 05/12/21 04:05 Macrocytosis Not Reportable 05/12/21 04:05 Spherocytes Not Reportable 05/12/21 04:05 Pappenheimer Bodies Not Reportable 05/12/21 04:05 Sickle Cells Not Reportable 05/12/21 04:05 Target Cells Not Reportable 05/12/21 04:05 Tear Drop Cells Not Reportable 05/12/21 04:05 Ovalocytes Not Reportable 05/12/21 04:05 Helmet Cells Not Reportable 05/12/21 04:05 Ahuja-[place] Bodies Not Reportable 05/12/21 04:05 [place] Rings Not Reportable 05/12/21 04:05 [place] Cells Not Reportable 05/12/21 04:05 Bite Cells Not Reportable 05/12/21 04:05 Crenated Cell Not Reportable 05/12/21 04:05 Elliptocytes Not Reportable 05/12/21 04:05 Acanthocytes (Spur) Not Reportable 05/12/21 04:05 Rouleaux Not Reportable 05/12/21 04:05 Hemoglobin C Crystals Not Reportable 05/12/21 04:05 Schistocytes Not Reportable 05/12/21 04:05 Malaria parasites Not Reportable 05/12/21 04:05 Justin Bodies Not Reportable 05/12/21 04:05 Hem Pathologist Commnt No 05/12/21 04:05 D-Dimer 488.49 ng/mlDDU (0-234) H 06/05/21 05:26 ABG pH 7.403 pH Units (7.350-7.450) 05/14/21 02:23 POC ABG pCO2 45.4 mmHg (32.0-48.0) 05/03/21 04:49 ABG pCO2 50.2 mm Hg 05/14/21 02:23 POC ABG pO2 65.3 mmHg (83-108) L 05/03/21 04:49 ABG pO2 130.3 mm Hg (80.0-90.0) H 05/14/21 02:23 POC ABG HCO3 18.5 05/03/21 04:49 ABG HCO3 30.6 mmol/L (20.0-26.0) H 05/14/21 02:23 ABG O2 Saturation 98.5 % (95.0-99.0) 05/14/21 02:23 ABG O2 Content 17.9 (0.0-44) 05/14/21 02:23 POC ABG Base Excess -8.9 05/03/21 04:49 ABG Base Excess 4.9 mmol/L (-2.0-3.0) H 05/14/21 02:23 ABG Hemoglobin 13.0 gm/dl (12.0-16.0) 05/14/21 02:23 ABG Oxyhemoglobin 87.8 (94-98) L 05/03/21 04:49 ABG Carboxyhemoglobin 1.4 % (0.0-5.0) 05/14/21 02:23 ABG Methemoglobin 0.6 % (0.0-1.5) 05/14/21 02:23 ABG Sodium 133.0 mmol/L (136.0-145.0) L 05/03/21 04:49 ABG Potassium 3.9 mmol/L (3.40-4.50) 05/03/21 04:49 ABG Chloride 97.0 mmol/L (98-107) L 05/03/21 04:49 ABG Glucose 403 mg/dL (65-95) H 05/03/21 04:49 Oxyhemoglobin 96.5 % (95.0-99.0) 05/14/21 02:23 Carboxyhemoglobin 0.6 (0.5-1.5) 05/03/21 04:49 FiO2 90 % 05/14/21 02:23 FiO2 % 100.0 05/03/21 04:49 Sodium 142 mmol/L (137-145) 07/04/21 06:35 Potassium 4.4 mmol/L (3.6-5.0) D 07/04/21 06:35 Chloride 106.1 mmol/L (98-107) 07/04/21 06:35 Carbon Dioxide 27 mmol/L (22-30) 07/04/21 06:35 Anion Gap 13 mmol/L 07/04/21 06:35 BUN 11 mg/dL (7-17) 07/04/21 06:35 Creatinine 0.3 mg/dL (0.6-1.2) L 07/04/21 06:35 Estimated GFR > 60 ml/min 07/04/21 06:35 BUN/Creatinine Ratio 37 % 07/04/21 06:35 Glucose 118 mg/dL (65-100) H 07/04/21 06:35 POC Glucose 104 mg/dL (70-105) 07/04/21 07:38 Hemoglobin A1c 8.5 % (4-6) H 04/18/21 07:36 Calcium 9.0 mg/dL (8.4-10.2) 07/04/21 06:35 Phosphorus 4.00 mg/dL (2.5-4.5) 07/03/21 05:46 Magnesium 1.90 mg/dL (1.7-2.3) 07/03/21 05:46 Ferritin 187.7 ng/mL (10.0-200.0) 06/05/21 05:26 Total Bilirubin 0.30 mg/dL (0.1-1.2) 06/28/21 05:43 AST 19 units/L (5-40) 06/28/21 05:43 ALT 63 units/L (7-56) H 06/28/21 05:43 Alkaline Phosphatase 61 units/L (35-129) 06/28/21 05:43 Lactate Dehydrogenase 475 units/L (91-180) H 06/05/21 05:26 C-Reactive Protein 0.10 mg/dL (0.00-1.30) 06/05/21 05:26 Total Protein 6.5 g/dL (6.3-8.2) 06/28/21 05:43 Albumin 3.3 g/dL (3.9-5) L 06/28/21 05:43 Albumin/Globulin Ratio 1.0 % 06/28/21 05:43 Triglycerides < 9 mg/dL (2-149) 05/03/21 04:30 Procalcitonin < 0.05 ng/mL (<0.15) 05/23/21 09:50 Arterial Blood Glucose 403 mg/dL (65-95) H 05/03/21 04:49 Arterial Blood Ionized Calcium 4.9 mg/dL (4.6-5.3) 05/03/21 04:49 Coronavirus (PCR) Positive (Negative) A 06/05/21 08:30 Amos/IV: Voiding Method Bedpan Active Medications - Current Medications Current Medications: Generic Name Dose Route Start Last Admin Trade Name Freq PRN Reason Stop Dose Admin Acetaminophen 650 mg 07/02/21 17:48 07/03/21 22:02 Acetaminophen 325 Mg Tab PO 650 mg Q4H PRN Administration Pain, Mild (1-3) Albuterol 2.5 mg 04/16/21 13:39 04/21/21 20:39 Albuterol 2.5 Mg/3 Ml Nebu IH 2.5 mg Q4HRT PRN Administration Shortness Of Breath Ascorbic Acid 500 mg 04/24/21 10:00 07/04/21 10:55 Ascorbic Acid 500 Mg Tab PO 500 mg QDAY TUTU Administration Cholecalciferol 1,000 unit 04/17/21 10:00 07/04/21 10:56 Cholecalciferol (Vit D3) 1000 Unit (25 Mcg) Tab PO 1,000 unit QDAY TUTU Administration Clonazepam 1 mg 05/29/21 08:06 07/02/21 09:59 Clonazepam 0.5 Mg Tab PO 1 mg Q8H PRN Administration Anxiety Dextrose 50 ml 04/18/21 07:30 04/28/21 09:59 Dextrose 50% In Water (25gm) 50 Ml Syringe IV 50 ml Q30MIN PRN Administration Hypoglycemia Protocol Enoxaparin Sodium 40 mg 05/19/21 22:00 07/03/21 21:54 Enoxaparin 40 Mg/0.4 Ml Inj SUB-Q 40 mg QDAY@2200 TUTU Administration Protocol Insulin Glargine 15 units 06/25/21 10:00 07/04/21 10:00 Insulin Glargine 100 Units/Ml SUB-Q 15 units DAILY TUTU Administration Insulin Human Lispro 0 unit 05/18/21 12:00 07/04/21 07:30 Insulin Lispro 100 Unit/Ml SUB-Q Not Given ACHS [facility] Protocol Lorazepam 1 mg 05/25/21 14:40 06/11/21 23:55 Lorazepam 2 Mg/Ml Vial IV 1 mg Q6H PRN Administration Agitation Magnesium Hydroxide 30 ml 06/07/21 16:30 06/11/21 11:06 Magnesium Hydroxide (Mom) Oral Liqd Udc PO 30 ml QDAY PRN Administration Constipation Ondansetron HCl 4 mg 04/16/21 14:00 05/30/21 10:07 Ondansetron 4 Mg/2 Ml Inj IV 4 mg Q8H PRN Administration Nausea And Vomiting Prednisone 10 mg 07/03/21 10:00 07/04/21 10:56 Prednisone 10 Mg Tab PO 10 mg QDAY TUTU Administration Sodium Chloride 10 ml 04/16/21 22:00 07/04/21 10:57 Sodium Chloride 0.9% 10 Ml Flush Syringe IV 10 ml BID TUTU Administration Sodium Chloride 10 ml 04/16/21 13:39 05/22/21 15:21 Sodium Chloride 0.9% 10 Ml Flush Syringe IV 10 ml PRN PRN Administration LINE FLUSH Zinc Sulfate 220 mg 04/16/21 22:00 07/04/21 10:56 Zinc Sulfate 220 Mg Cap PO 220 mg BID TUTU Administration Zolpidem Tartrate 10 mg 05/26/21 08:56 07/03/21 22:02 Zolpidem 5 Mg Tab PO 10 mg QHS PRN Administration Insomnia Nutrition/Malnutrition Assess - Dietary Evaluation Nutrition/Malnutrition Findings: Nutrition Notes Start: 04/23/21 07:41 Freq: Status: Active Protocol: Document 07/03/21 16:54 GB (Rec: 07/03/21 17:11 GB [email or web address]) Nutrition Notes Initial or Follow up Reassessment Current Diagnosis Respiratory Failure Other Pertinent Diagnosis oral thrush, COVID-19 pneu Current Diet consistent carbohydrate Labs/Tests 07/03: creatinine 0.3, K 3.2 Pertinent Medications Vit C, Vit D3, D5 (PRN), Prednisone, NaCl, Zn Sulfate Height 4 ft 11.84 in Weight 60.3 kg [place] Body Weight (kg) 45.09 BMI 26.1 Weight change and time frame 04/16/21: 74.843kg 05/17/21: 68.1kg 06/16/21: 60.3kg change of -14.54kg for -19.43% in 60 days. Per MD note: pt has been diuresed thorughout stay. Weight Status Overweight Subjective/Other Information MD notes 07/03: pt showing improvement, prednisone weaning down, possible weaning of O2. Last BM: 07/02 PO intake recorded at 50-100% Percent of energy/protein needs met: PO intake of meals meet 75% or greater of EEN Burn Absent Trauma Absent GI Symptoms None Food Allergy No Skin Integrity/Comment skin tear rt/lt buttocks Current % PO Good (75-100%) Minimum of two criteria No #3 Nutrition Diagnosis No nutrition diagnosis at this time Etiology respiratory failure As Evidenced by Signs and Symptoms recovering, good po, weight loss r/t diurese therapy #2 Nutrition Diagnosis Malnutrition Comments: Wt loss due to diurese for most of stay. PO intake is recorded at 75- 100% Etiology acute illness As Evidenced by Signs and Symptoms <50% EER in >5 days, >5% wt loss in 1 month Diagnosis Progress(for reassessment Resolved documentation) #1 Nutrition Diagnosis Inadequate oral intake Etiology ARF As Evidenced by Signs and Symptoms pt continues to meet 100%/93% of kcal/protein needs Diagnosis Progress(for reassessment Resolved documentation) Is patient on ventilator? No Is Patient Ambulatory and/or Out of Bed Yes REE-([place]-St. Jeor-ambulatory/OOB) [ 1491.022 [id number]] Kcal/Kg value to use for calculation 25 Approximate Energy Requirements Using 1508 kcal/Kg Calculation Used for Recommendations Kcal/kg Additional Notes Pro needs 1-1.2g/kg @ 60k -72g/day Fluid needs 1ml/kcal or per MD Nutrition Intervention Change Diet Order: continue Nutrition Support: n/a Add Supplement/Snack (indicate name/kcal n/a /protein ) Goal #1 PO intake of meals to be 75% or greater daily for LOS Goal #2 Weight to stabilize +/-3% current weight for LOS Follow-Up By: 08/07/21 Additional Comments f/u: po intake, weight - Attestation Statement I have reviewed and agreed w/ Malnutrition eval & tx plan: Yes
[2021-07-04] MEDS: clonazePAM 0.5 MG TAB PO PRN (11:23)
[2021-07-04] MEDS: ALPRAZolam 1 MG TAB PO SCH ×2 (13:01→22:00)
[2021-07-04] MEDS: ENOXAPARIN 40 MG/0.4 ML INJ SUB-Q SCH (21:59)
[2021-07-04] MEDS: ZOLPIDEM 5 MG TAB PO PRN (22:00)
[2021-07-05] MEDS: predniSONE 10 MG TAB PO SCH (10:12)
[2021-07-05] MEDS: INSULIN GLARGINE 100 UNITS/ML SUB-Q SCH (10:12)
[2021-07-05] MEDS: ALPRAZolam 1 MG TAB PO SCH ×2 (10:12→22:08)
[2021-07-05] MEDS: CHOLECALCIFEROL (VIT D3) 1000 UNIT (25 mcg) TAB PO SCH (10:12)
[2021-07-05] MEDS: ASCORBIC ACID 500 MG TAB PO SCH (10:12)
[2021-07-05] MEDS: INSULIN LISPRO 100 UNIT/ML SUB-Q SCH ×4 (10:12→22:09)
[2021-07-05] MEDS: ZINC SULFATE 220 MG CAP PO SCH ×2 (10:13→22:08)
--- NOTE | 2021-07-05 10:58 | Progress Note ---
Assessment and Plan 50 y/o female with acute respiratory failure secondary to COVID19 pneumonia. 07/05/21: Will monitor over the weekend. Worst case scenario, may need to go back up to Prednisone 20 at least. Prone if able. Unsure why all of sudden oxygen requirement increasing. Will repeat CXR. 07/03/21: Down to 10 of prednisone. Will keep through the weekend and then drop to 5 on Thursday. PT/OT assessment if not done. Suggest maybe weaning flow now given FiO2 down to 50%. Prognosis is still guarded. 07/01/21: Will drop steroids to 10mg daily starting tomorrow. Wean for sats >88%. Prone. PT/OT should be seeing now that oxygen requirement is down more. 06/28/21: Continue to wean as tolerated. Will drop steroids down even further next week. Will see PRN over the weekend. 06/26/21: Will drop steroids down to 20 starting tomorrow. Prone. Continue to wean as tolerated. 06/24/21: Continue Pred, will drop to 20 daily tomorrow. Prone if able. Hopeful they can wean FiO2 more. May need to consider increasing flow for a while. 06/21/21: Continue pred at 40, will decrease likely Thursday/Thursday to 20 daily. Prone if able. Continue to wean as tolerated. Prognosis still remains guarded. 06/20/21: Will drop steroids down to 40 today. Proning. Continue to wean FiO2. 06/18/21: Wean Fio2 for sats >88%. Please encourage proning. Drop steroids down to 40 on . 06/14/21: Continue oral steroid therapy. Will do further weaning next week. Wean for sats >88% and prone as tolerated. Will see as needed over the weekend. 06/13/21: Will change to prednisone 60 daily starting tomorrow. Prone if able and wean for sats >88% 06/11/21: no new recs, will change to oral steroids tomorrow, continue to prone if able and wean for sats >88% 06/10/21: Will change to oral steroids on Thursday to begin prolonged taper 06/06/21: Continue to wean as tolerated, will drop steroids on tomorrow. 06/04/21: Clinically no change. Will drop steroids down the end of this week. 05/31/21: Clinically no change. Not eligible for LTACH. Encourage Proning. Will drop steroids down to 40 q8 05/29/21: No acute changes clinically. Still on HFNC but not really able to wean. Continue to encourage proning. Will drop steroids further on Thursday. 05/27/21: No improvement over the weekend but also no worsening. No other strategies to offer. Please continue to encourage patient to prone. I dropped steroids on yesterday. Will wean more later in the week. 05/24/21: No new recs again for today. Will see as needed over the weekend but follow chart peripherally for changes. 05/22/21: No new recs for today. Prognosis remains guarded. 05/21/21: Wean as tolerated. Prone if able. Guarded prognosis 05/20/21: COntinue current level of care. 05/17/21: Prone if possible. Wean FiO2 for sats >88%. Continue scheduled ativan. Prognosis is very very guarded. Unfunded so not a candidate for LTACH 05/16/21: Prone if willing. Wean FIO2 if patient will allow. Anxiety control. Prognosis still remains very guarded. 05/15/21: Not sure if MAR is accurate but may have only gotten one dose of scheduled anixolytic therapy. Continue proning as tolerated, and wean FiO2 and flow for sats >88%. Prognosi remains very very guarded to poor. 05/14/21: Will discontinue the buspar and make the ativan scheduled but will do q6 as oppose to q4 and attempt to leave parameters for nursing when not to give. If anxiety could be controlled, feel that patient could be weaned further. She has no funding so she is not a candidate for LTACH. Prone if possible. Guarded prognosis. This is her day. 05/13/21: Ordered buspar 10 BID to start with to help with anxiety. Please continue to wean FiO2 as tolerated. Will remind nurse that there is PRN ativan available. Continue higher doses of steroids. Prone if able. 05/12/21: Patient may need something longer acting for anxiety. Per chart has not gotten any ativan in days. Would be ok with either buspar or low dose klonopin bid. COntinue higher doses of steroids as patient seems to be responding. Prone if possible. 05/11/21: Continue high doses of steroids and continue to wean for sats >88%. Please encourage proning. 05/10/21: Will continue this dose of steroid at least through the weekend and assess for improvement. will speak with RT about aggressive weaning. Full dose anticoagulation continues. Very very guarded to poor prognosis. 05/09/21: Going to consider increasing steroids to 125q8, maybe as early as tomorrow. continue full dose anticoagulation. 05/08/21: Continue anticoagulation and steroids. Prone if possible. Anxiety control. No objection to CTA if this can happen. Very very guarded prognosis. 05/07/21: Spoke with IMS, not opposed to full dose anticoagulation. If patient goes back on NRB HFNC combo may need to consider restarting PPN again. Encourage proning. Guarded prognosis. 05/06/21: Continue to wean FiO2 and flow for sats >88%. Tolerating diet now so will stop PPN. Continue anxiety control. Continue IV steroids. Would not object to transfer to COVID floor if bed available. Not sure why she was titrat ed back up to 100% from 85 as all sats documented in the RT's notes were acceptable. Same for under vital signs as well. 05/03/21: Set back last night from yesterday. Continue bipap therapy for now and attempt HFNC maybe later this afternoon. Continue to use PRN ativan but may need to schedule as she likely took off mask from anxiety. Continue IV steroids. Hold on transfer to COVID Floor. 05/02/21: Continue to wean FiO2 as tolerated for sats >88%. Will continue bipap at night. Patient has no funding so not a candidate for LTACH. Given that she has been stable and not requiring the combo of HFNC and NRB, will consider moving to COVID floor. 05/01/21: Continue to wean FiO2 for sats >88%. A sat of 90 is more than acceptable and oxygen should not be increased for this unless patient desats and remains at a sat lower than 88. Bipap at night to give some form of relief and HFNC during the day. Currently on just this alone which is improvement. Ok with daily diuresis but must monitor renal function and BP closely. She was over diuresed last week and we ended up giving fluid back. Prognosis remains guarded. 04/30/21: Will start CLinimix today for nutritional support, without electrolytes. Check labs in am. Prone if able. Continue precedx for anxiety. Very very guarded prognosis. Attempting our best to not intubate. 04/29/21: Continue precedex. Continue IV solumedrol. Prone if able. Guarded prognosis. 04/28/21: Continue Precedex. Picc team attempting to place line now. Stable on Bipap. Ordered steroids IV solumedrol to start today. Prognosis remains guarded, still at very high risk for intubation. 04/27/21: Hypotension improving/improved. Hold on any further lasix dosing. Continue precedex to help with anxeity. later today please attempt HFNC with NRB if needed. Attempt to feed if possible. Steroids end today, please order solumedrol 40q8 to start tomorrow (04/28/21). guarded prognosis. 04/26/21: Hypotension today, most likely from precedex use and diuresis that I did the last several days. Will bolus again today. Consider midodrine if BP does not respond. 04/25/21: Lasix again today. Keep PRN ativan for now. Hold on precedex for now. Guarded prognosis. Labs ordered for tomorrow. 04/24/21: Lasix today. Will also start patient on low dose PRN ativan. If this does not help will then try precedex. Guarded prognosis. 04/23/21: Prone as tolerated. No lasix today. Continue decadron. Guarded prognosis. High risk for intubation and high mortality with intubation. 04/19/21: Prone as tolerated during the day and sleep prone at night. Continue IV remdesivir and steroids. Did get actemra. Guarded prognosis. 1. Daily net negative state 2. Prone if possible 3. IV remdesivir. 4. Should be a candidate for Actemra 5. IV steroids 6. Guarded Prognosis Subjective Date of service: 07/05/21 Principal diagnosis: Covid-19 Interval history: Worsening oxygenation requirements. Objective Vital Signs - 12hr 07/05/21 07/05/21 07/05/21 03:13 04:07 06:36 Temperature 99.0 F Pulse Rate 114 H Respiratory 24 20 Rate Blood Pressure 114/76 O2 Sat by Pulse 96 89 97 Oximetry Constitutional: no acute distress, alert Eyes: non-icteric ENT: oropharynx moist Neck: supple Effort: normal Ascultation: Bilateral: diminished breath sounds Cardiovascular: regular rate and rhythm Gastrointestinal: normoactive bowel sounds, soft, non-tender, non-distended Integumentary: normal Extremities: no cyanosis, no edema, pink and warm Neurologic: normal mental status, non-focal exam, pupils equal and round, CN II- XII normal Psychiatric: mood appropriate, affect normal CBC and BMP: 07/03/21 05:46 07/04/21 06:35 ABG, PT/INR, D-dimer: ABG ABG pH 7.403 pH Units (7.350-7.450) 05/14/21 02:23 POC ABG pCO2 45.4 mmHg (32.0-48.0) 05/03/21 04:49 ABG pCO2 50.2 mm Hg 05/14/21 02:23 POC ABG pO2 65.3 mmHg (83-108) L 05/03/21 04:49 ABG pO2 130.3 mm Hg (80.0-90.0) H 05/14/21 02:23 POC ABG HCO3 18.5 05/03/21 04:49 ABG O2 Saturation 98.5 % (95.0-99.0) 05/14/21 02:23 PT/INR, D-dimer D-Dimer 488.49 ng/mlDDU (0-234) H 06/05/21 05:26 Abnormal lab findings: Abnormal Labs 04/16/21 04/16/21 04/16/21 11:42 11:42 11:42 WBC MCH MCHC RDW 16.1 H Lymph % (Auto) 7.8 L Lymph # (Auto) 0.8 L Baso # (Auto) Seg Neutrophils % 87.7 H Seg Neuts % (Manual) Lymphocytes % (Manual) Seg Neutrophils # 8.5 H Seg Neutrophils # Man Lymphocytes # (Manual) D-Dimer 338.70 H ABG pH POC ABG pO2 ABG pO2 ABG HCO3 ABG O2 Saturation ABG Base Excess ABG Oxyhemoglobin ABG Sodium ABG Chloride ABG Glucose Oxyhemoglobin Carboxyhemoglobin Sodium Potassium Chloride Carbon Dioxide BUN Creatinine Glucose 194 H POC Glucose Hemoglobin A1c Ferritin AST ALT Alkaline Phosphatase Lactate Dehydrogenase C-Reactive Protein Total Protein 8.4 H Albumin 3.8 L Arterial Blood Glucose Coronavirus (PCR) 04/16/21 04/16/21 04/17/21 11:42 11:42 03:50 WBC MCH MCHC RDW 16.0 H Lymph % (Auto) 7.7 L Lymph # (Auto) 0.6 L Baso # (Auto) Seg Neutrophils % 89.8 H Seg Neuts % (Manual) Lymphocytes % (Manual) Seg Neutrophils # Seg Neutrophils # Man Lymphocytes # (Manual) D-Dimer ABG pH POC ABG pO2 ABG pO2 ABG HCO3 ABG O2 Saturation ABG Base Excess ABG Oxyhemoglobin ABG Sodium ABG Chloride ABG Glucose Oxyhemoglobin Carboxyhemoglobin Sodium Potassium Chloride Carbon Dioxide BUN Creatinine Glucose 195 H POC Glucose Hemoglobin A1c Ferritin 254.3 H AST ALT Alkaline Phosphatase Lactate Dehydrogenase 359 H C-Reactive Protein 15.20 H Total Protein Albumin Arterial Blood Glucose Coronavirus (PCR) 04/17/21 04/17/21 04/17/21 03:50 08:26 08:26 WBC MCH MCHC RDW Lymph % (Auto) Lymph # (Auto) Baso # (Auto) Seg Neutrophils % Seg Neuts % (Manual) Lymphocytes % (Manual) Seg Neutrophils # Seg Neutrophils # Man Lymphocytes # (Manual) D-Dimer 262.48 H ABG pH POC ABG pO2 ABG pO2 ABG HCO3 ABG O2 Saturation ABG Base Excess ABG Oxyhemoglobin ABG Sodium ABG Chloride ABG Glucose Oxyhemoglobin Carboxyhemoglobin Sodium Potassium Chloride Carbon Dioxide BUN 20 H Creatinine 0.5 L Glucose 249 H 225 H POC Glucose Hemoglobin A1c Ferritin AST ALT Alkaline Phosphatase Lactate Dehydrogenase 338 H C-Reactive Protein 17.20 H Total Protein Albumin 3.2 L Arterial Blood Glucose Coronavirus (PCR) 04/17/21 04/17/21 04/17/21 08:26 15:04 Unknown WBC MCH MCHC RDW Lymph % (Auto) Lymph # (Auto) Baso # (Auto) Seg Neutrophils % Seg Neuts % (Manual) Lymphocytes % (Manual) Seg Neutrophils # Seg Neutrophils # Man Lymphocytes # (Manual) D-Dimer ABG pH POC ABG pO2 ABG pO2 ABG HCO3 ABG O2 Saturation ABG Base Excess ABG Oxyhemoglobin ABG Sodium ABG Chloride ABG Glucose Oxyhemoglobin Carboxyhemoglobin Sodium Potassium Chloride Carbon Dioxide BUN 20 H Creatinine 0.5 L Glucose 246 H POC Glucose Hemoglobin A1c Ferritin 392.0 H AST ALT Alkaline Phosphatase Lactate Dehydrogenase C-Reactive Protein Total Protein 8.3 H Albumin 3.1 L Arterial Blood Glucose Coronavirus (PCR) Positive A 04/18/21 04/18/21 04/18/21 05:06 05:06 07:36 WBC 11.6 H MCH MCHC RDW 16.1 H Lymph % (Auto) Lymph # (Auto) Baso # (Auto) Seg Neutrophils % Seg Neuts % (Manual) Lymphocytes % (Manual) Seg Neutrophils # Seg Neutrophils # Man Lymphocytes # (Manual) D-Dimer ABG pH POC ABG pO2 ABG pO2 ABG HCO3 ABG O2 Saturation ABG Base Excess ABG Oxyhemoglobin ABG Sodium ABG Chloride ABG Glucose Oxyhemoglobin Carboxyhemoglobin Sodium Potassium 5.2 H Chloride Carbon Dioxide BUN 22 H Creatinine 0.5 L Glucose 315 H POC Glucose Hemoglobin A1c 8.5 H Ferritin AST ALT Alkaline Phosphatase Lactate Dehydrogenase C-Reactive Protein Total Protein Albumin 3.3 L Arterial Blood Glucose Coronavirus (PCR) 04/18/21 04/18/21 04/18/21 11:59 16:43 23:24 WBC MCH MCHC RDW Lymph % (Auto) Lymph # (Auto) Baso # (Auto) Seg Neutrophils % Seg Neuts % (Manual) Lymphocytes % (Manual) Seg Neutrophils # Seg Neutrophils # Man Lymphocytes # (Manual) D-Dimer ABG pH POC ABG pO2 ABG pO2 ABG HCO3 ABG O2 Saturation ABG Base Excess ABG Oxyhemoglobin ABG Sodium ABG Chloride ABG Glucose Oxyhemoglobin Carboxyhemoglobin Sodium Potassium Chloride Carbon Dioxide BUN Creatinine Glucose POC Glucose 284 H 273 H 290 H Hemoglobin A1c Ferritin AST ALT Alkaline Phosphatase Lactate Dehydrogenase C-Reactive Protein Total Protein Albumin Arterial Blood Glucose Coronavirus (PCR) 04/19/21 04/19/21 04/19/21 04:19 04:19 08:10 WBC MCH MCHC RDW 15.7 H Lymph % (Auto) Lymph # (Auto) Baso # (Auto) Seg Neutrophils % Seg Neuts % (Manual) Lymphocytes % (Manual) Seg Neutrophils # Seg Neutrophils # Man Lymphocytes # (Manual) D-Dimer ABG pH POC ABG pO2 ABG pO2 ABG HCO3 ABG O2 Saturation ABG Base Excess ABG Oxyhemoglobin ABG Sodium ABG Chloride ABG Glucose Oxyhemoglobin Carboxyhemoglobin Sodium Potassium Chloride Carbon Dioxide BUN 27 H Creatinine 0.4 L Glucose 184 H POC Glucose 194 H Hemoglobin A1c Ferritin AST ALT Alkaline Phosphatase Lactate Dehydrogenase C-Reactive Protein Total Protein Albumin 3.1 L Arterial Blood Glucose Coronavirus (PCR) 04/19/21 04/19/21 04/19/21 11:38 16:25 22:04 WBC MCH MCHC RDW Lymph % (Auto) Lymph # (Auto) Baso # (Auto) Seg Neutrophils % Seg Neuts % (Manual) Lymphocytes % (Manual) Seg Neutrophils # Seg Neutrophils # Man Lymphocytes # (Manual) D-Dimer ABG pH POC ABG pO2 ABG pO2 ABG HCO3 ABG O2 Saturation ABG Base Excess ABG Oxyhemoglobin ABG Sodium ABG Chloride ABG Glucose Oxyhemoglobin Carboxyhemoglobin Sodium Potassium Chloride Carbon Dioxide BUN Creatinine Glucose POC Glucose 224 H 297 H 251 H Hemoglobin A1c Ferritin AST ALT Alkaline Phosphatase Lactate Dehydrogenase C-Reactive Protein Total Protein Albumin Arterial Blood Glucose Coronavirus (PCR) 04/20/21 04/20/21 04/20/21 05:28 08:43 16:21 WBC MCH MCHC RDW Lymph % (Auto) Lymph # (Auto) Baso # (Auto) Seg Neutrophils % Seg Neuts % (Manual) Lymphocytes % (Manual) Seg Neutrophils # Seg Neutrophils # Man Lymphocytes # (Manual) D-Dimer ABG pH POC ABG pO2 ABG pO2 ABG HCO3 ABG O2 Saturation ABG Base Excess ABG Oxyhemoglobin ABG Sodium ABG Chloride ABG Glucose Oxyhemoglobin Carboxyhemoglobin Sodium Potassium Chloride Carbon Dioxide BUN 27 H Creatinine Glucose 192 H POC Glucose 173 H 253 H Hemoglobin A1c Ferritin AST ALT Alkaline Phosphatase Lactate Dehydrogenase C-Reactive Protein Total Protein Albumin 3.0 L Arterial Blood Glucose Coronavirus (PCR) 04/21/21 04/21/21 04/21/21 07:58 12:05 16:08 WBC MCH MCHC RDW Lymph % (Auto) Lymph # (Auto) Baso # (Auto) Seg Neutrophils % Seg Neuts % (Manual) Lymphocytes % (Manual) Seg Neutrophils # Seg Neutrophils # Man Lymphocytes # (Manual) D-Dimer ABG pH POC ABG pO2 ABG pO2 ABG HCO3 ABG O2 Saturation ABG Base Excess ABG Oxyhemoglobin ABG Sodium ABG Chloride ABG Glucose Oxyhemoglobin Carboxyhemoglobin Sodium Potassium Chloride Carbon Dioxide BUN Creatinine Glucose POC Glucose 140 H 252 H 214 H Hemoglobin A1c Ferritin AST ALT Alkaline Phosphatase Lactate Dehydrogenase C-Reactive Protein Total Protein Albumin Arterial Blood Glucose Coronavirus (PCR) 04/21/21 04/22/21 04/22/21 21:42 08:37 12:01 WBC MCH MCHC RDW Lymph % (Auto) Lymph # (Auto) Baso # (Auto) Seg Neutrophils % Seg Neuts % (Manual) Lymphocytes % (Manual) Seg Neutrophils # Seg Neutrophils # Man Lymphocytes # (Manual) D-Dimer ABG pH 7.457 H POC ABG pO2 49.4 L ABG pO2 ABG HCO3 ABG O2 Saturation ABG Base Excess ABG Oxyhemoglobin 85.6 L ABG Sodium ABG Chloride ABG Glucose 121 H Oxyhemoglobin Carboxyhemoglobin 0.3 L Sodium Potassium Chloride Carbon Dioxide BUN Creatinine Glucose POC Glucose 162 H 227 H Hemoglobin A1c Ferritin AST ALT Alkaline Phosphatase Lactate Dehydrogenase C-Reactive Protein Total Protein Albumin Arterial Blood Glucose 121 H Coronavirus (PCR) 04/22/21 04/22/21 04/23/21 16:26 22:23 04:52 WBC MCH MCHC RDW 15.7 H Lymph % (Auto) Lymph # (Auto) Baso # (Auto) Seg Neutrophils % Seg Neuts % (Manual) Lymphocytes % (Manual) Seg Neutrophils # Seg Neutrophils # Man Lymphocytes # (Manual) D-Dimer ABG pH POC ABG pO2 ABG pO2 ABG HCO3 ABG O2 Saturation ABG Base Excess ABG Oxyhemoglobin ABG Sodium ABG Chloride ABG Glucose Oxyhemoglobin Carboxyhemoglobin Sodium Potassium Chloride Carbon Dioxide BUN Creatinine Glucose POC Glucose 200 H 136 H Hemoglobin A1c Ferritin AST ALT Alkaline Phosphatase Lactate Dehydrogenase C-Reactive Protein Total Protein Albumin Arterial Blood Glucose Coronavirus (PCR) 04/23/21 04/23/21 04/23/21 04:52 12:06 17:41 WBC MCH MCHC RDW Lymph % (Auto) Lymph # (Auto) Baso # (Auto) Seg Neutrophils % Seg Neuts % (Manual) Lymphocytes % (Manual) Seg Neutrophils # Seg Neutrophils # Man Lymphocytes # (Manual) D-Dimer ABG pH POC ABG pO2 ABG pO2 ABG HCO3 ABG O2 Saturation ABG Base Excess ABG Oxyhemoglobin ABG Sodium ABG Chloride ABG Glucose Oxyhemoglobin Carboxyhemoglobin Sodium 136 L Potassium Chloride 97.7 L Carbon Dioxide BUN 23 H Creatinine Glucose 101 H POC Glucose 202 H 169 H Hemoglobin A1c Ferritin AST 46 H ALT Alkaline Phosphatase Lactate Dehydrogenase C-Reactive Protein Total Protein Albumin 3.3 L Arterial Blood Glucose Coronavirus (PCR) 04/23/21 04/24/21 04/24/21 23:08 05:17 08:38 WBC MCH MCHC RDW Lymph % (Auto) Lymph # (Auto) Baso # (Auto) Seg Neutrophils % Seg Neuts % (Manual) Lymphocytes % (Manual) Seg Neutrophils # Seg Neutrophils # Man Lymphocytes # (Manual) D-Dimer ABG pH POC ABG pO2 ABG pO2 ABG HCO3 ABG O2 Saturation ABG Base Excess ABG Oxyhemoglobin ABG Sodium ABG Chloride ABG Glucose Oxyhemoglobin Carboxyhemoglobin Sodium Potassium Chloride Carbon Dioxide BUN Creatinine Glucose POC Glucose 111 H 108 H 126 H Hemoglobin A1c Ferritin AST ALT Alkaline Phosphatase Lactate Dehydrogenase C-Reactive Protein Total Protein Albumin Arterial Blood Glucose Coronavirus (PCR) 04/24/21 04/24/21 04/24/21 11:54 17:57 21:23 WBC MCH MCHC RDW Lymph % (Auto) Lymph # (Auto) Baso # (Auto) Seg Neutrophils % Seg Neuts % (Manual) Lymphocytes % (Manual) Seg Neutrophils # Seg Neutrophils # Man Lymphocytes # (Manual) D-Dimer ABG pH POC ABG pO2 ABG pO2 ABG HCO3 ABG O2 Saturation ABG Base Excess ABG Oxyhemoglobin ABG Sodium ABG Chloride ABG Glucose Oxyhemoglobin Carboxyhemoglobin Sodium Potassium Chloride Carbon Dioxide BUN Creatinine Glucose POC Glucose 147 H 177 H 138 H Hemoglobin A1c Ferritin AST ALT Alkaline Phosphatase Lactate Dehydrogenase C-Reactive Protein Total Protein Albumin Arterial Blood Glucose Coronavirus (PCR) 04/25/21 04/25/21 04/25/21 07:06 11:23 15:43 WBC MCH MCHC RDW Lymph % (Auto) Lymph # (Auto) Baso # (Auto) Seg Neutrophils % Seg Neuts % (Manual) Lymphocytes % (Manual) Seg Neutrophils # Seg Neutrophils # Man Lymphocytes # (Manual) D-Dimer ABG pH POC ABG pO2 ABG pO2 ABG HCO3 ABG O2 Saturation ABG Base Excess ABG Oxyhemoglobin ABG Sodium ABG Chloride ABG Glucose Oxyhemoglobin Carboxyhemoglobin Sodium Potassium Chloride Carbon Dioxide BUN Creatinine Glucose POC Glucose 147 H 169 H 227 H Hemoglobin A1c Ferritin AST ALT Alkaline Phosphatase Lactate Dehydrogenase C-Reactive Protein Total Protein Albumin Arterial Blood Glucose Coronavirus (PCR) 04/25/21 04/26/21 04/26/21 21:22 02:45 05:15 WBC MCH MCHC RDW Lymph % (Auto) Lymph # (Auto) Baso # (Auto) Seg Neutrophils % Seg Neuts % (Manual) Lymphocytes % (Manual) Seg Neutrophils # Seg Neutrophils # Man Lymphocytes # (Manual) D-Dimer ABG pH POC ABG pO2 70.7 L ABG pO2 ABG HCO3 ABG O2 Saturation ABG Base Excess ABG Oxyhemoglobin 93.0 L ABG Sodium 132.7 L ABG Chloride ABG Glucose 115 H Oxyhemoglobin Carboxyhemoglobin Sodium Potassium Chloride 95.8 L Carbon Dioxide 32 H BUN 20 H Creatinine Glucose 102 H POC Glucose 196 H Hemoglobin A1c Ferritin AST ALT Alkaline Phosphatase Lactate Dehydrogenase C-Reactive Protein Total Protein Albumin Arterial Blood Glucose 115 H Coronavirus (PCR) 04/26/21 04/26/21 04/26/21 11:49 16:09 21:07 WBC MCH MCHC RDW Lymph % (Auto) Lymph # (Auto) Baso # (Auto) Seg Neutrophils % Seg Neuts % (Manual) Lymphocytes % (Manual) Seg Neutrophils # Seg Neutrophils # Man Lymphocytes # (Manual) D-Dimer ABG pH POC ABG pO2 ABG pO2 ABG HCO3 ABG O2 Saturation ABG Base Excess ABG Oxyhemoglobin ABG Sodium ABG Chloride ABG Glucose Oxyhemoglobin Carboxyhemoglobin Sodium Potassium Chloride Carbon Dioxide BUN Creatinine Glucose POC Glucose 114 H 188 H 136 H Hemoglobin A1c Ferritin AST ALT Alkaline Phosphatase Lactate Dehydrogenase C-Reactive Protein Total Protein Albumin Arterial Blood Glucose Coronavirus (PCR) 04/27/21 04/27/21 04/28/21 17:34 22:12 08:26 WBC MCH MCHC RDW Lymph % (Auto) Lymph # (Auto) Baso # (Auto) Seg Neutrophils % Seg Neuts % (Manual) Lymphocytes % (Manual) Seg Neutrophils # Seg Neutrophils # Man Lymphocytes # (Manual) D-Dimer ABG pH POC ABG pO2 ABG pO2 ABG HCO3 ABG O2 Saturation ABG Base Excess ABG Oxyhemoglobin ABG Sodium ABG Chloride ABG Glucose Oxyhemoglobin Carboxyhemoglobin Sodium Potassium Chloride Carbon Dioxide BUN Creatinine Glucose POC Glucose 128 H 159 H 69 L Hemoglobin A1c Ferritin AST ALT Alkaline Phosphatase Lactate Dehydrogenase C-Reactive Protein Total Protein Albumin Arterial Blood Glucose Coronavirus (PCR) 04/28/21 04/28/21 04/29/21 12:22 21:11 06:05 WBC MCH MCHC RDW Lymph % (Auto) Lymph # (Auto) Baso # (Auto) Seg Neutrophils % Seg Neuts % (Manual) Lymphocytes % (Manual) Seg Neutrophils # Seg Neutrophils # Man Lymphocytes # (Manual) D-Dimer ABG pH POC ABG pO2 ABG pO2 ABG HCO3 ABG O2 Saturation ABG Base Excess ABG Oxyhemoglobin ABG Sodium ABG Chloride ABG Glucose Oxyhemoglobin Carboxyhemoglobin Sodium 132 L Potassium Chloride 94.4 L Carbon Dioxide BUN Creatinine 0.2 L D Glucose 140 H POC Glucose 141 H 171 H Hemoglobin A1c Ferritin AST ALT Alkaline Phosphatase Lactate Dehydrogenase C-Reactive Protein Total Protein Albumin Arterial Blood Glucose Coronavirus (PCR) 04/29/21 04/29/21 04/29/21 06:05 07:24 11:36 WBC MCH MCHC 35 H RDW 15.9 H Lymph % (Auto) Lymph # (Auto) Baso # (Auto) Seg Neutrophils % Seg Neuts % (Manual) Lymphocytes % (Manual) Seg Neutrophils # Seg Neutrophils # Man Lymphocytes # (Manual) D-Dimer ABG pH POC ABG pO2 ABG pO2 ABG HCO3 ABG O2 Saturation ABG Base Excess ABG Oxyhemoglobin ABG Sodium ABG Chloride ABG Glucose Oxyhemoglobin Carboxyhemoglobin Sodium Potassium Chloride Carbon Dioxide BUN Creatinine Glucose POC Glucose 141 H 220 H Hemoglobin A1c Ferritin AST ALT Alkaline Phosphatase Lactate Dehydrogenase C-Reactive Protein Total Protein Albumin Arterial Blood Glucose Coronavirus (PCR) 04/29/21 04/29/21 04/29/21 14:23 15:30 17:06 WBC MCH MCHC RDW Lymph % (Auto) Lymph # (Auto) Baso # (Auto) Seg Neutrophils % Seg Neuts % (Manual) Lymphocytes % (Manual) Seg Neutrophils # Seg Neutrophils # Man Lymphocytes # (Manual) D-Dimer ABG pH POC ABG pO2 ABG pO2 52.6 L ABG HCO3 ABG O2 Saturation 86.4 L ABG Base Excess ABG Oxyhemoglobin ABG Sodium ABG Chloride ABG Glucose Oxyhemoglobin 84.6 L Carboxyhemoglobin Sodium Potassium Chloride Carbon Dioxide BUN Creatinine Glucose POC Glucose 173 H 158 H Hemoglobin A1c Ferritin AST ALT Alkaline Phosphatase Lactate Dehydrogenase C-Reactive Protein Total Protein Albumin Arterial Blood Glucose Coronavirus (PCR) 04/29/21 04/30/2121 21:27 07:16 08:00 WBC MCH MCHC RDW 16.1 H Lymph % (Auto) Lymph # (Auto) Baso # (Auto) Seg Neutrophils % Seg Neuts % (Manual) Lymphocytes % (Manual) Seg Neutrophils # Seg Neutrophils # Man Lymphocytes # (Manual) D-Dimer ABG pH POC ABG pO2 ABG pO2 ABG HCO3 ABG O2 Saturation ABG Base Excess ABG Oxyhemoglobin ABG Sodium ABG Chloride ABG Glucose Oxyhemoglobin Carboxyhemoglobin Sodium Potassium Chloride Carbon Dioxide BUN Creatinine Glucose POC Glucose 244 H 175 H Hemoglobin A1c Ferritin AST ALT Alkaline Phosphatase Lactate Dehydrogenase C-Reactive Protein Total Protein Albumin Arterial Blood Glucose Coronavirus (PCR) 04/30/21 04/30/21 04/30/21 08:00 08:00 11:03 WBC MCH MCHC RDW Lymph % (Auto) Lymph # (Auto) Baso # (Auto) Seg Neutrophils % Seg Neuts % (Manual) Lymphocytes % (Manual) Seg Neutrophils # Seg Neutrophils # Man Lymphocytes # (Manual) D-Dimer 1796.87 H ABG pH POC ABG pO2 ABG pO2 ABG HCO3 ABG O2 Saturation ABG Base Excess ABG Oxyhemoglobin ABG Sodium ABG Chloride ABG Glucose Oxyhemoglobin Carboxyhemoglobin Sodium 135 L Potassium Chloride 96.3 L Carbon Dioxide BUN Creatinine 0.2 L Glucose 153 H POC Glucose 183 H Hemoglobin A1c Ferritin AST 41 H ALT 76 H Alkaline Phosphatase 160 H Lactate Dehydrogenase 522 H C-Reactive Protein Total Protein 6.1 L Albumin 3.1 L Arterial Blood Glucose Coronavirus (PCR) 04/30/21 04/30/21 05/01/21 17:04 22:17 05:39 WBC MCH MCHC RDW Lymph % (Auto) Lymph # (Auto) Baso # (Auto) Seg Neutrophils % Seg Neuts % (Manual) Lymphocytes % (Manual) Seg Neutrophils # Seg Neutrophils # Man Lymphocytes # (Manual) D-Dimer ABG pH POC ABG pO2 ABG pO2 ABG HCO3 ABG O2 Saturation ABG Base Excess ABG Oxyhemoglobin ABG Sodium ABG Chloride ABG Glucose Oxyhemoglobin Carboxyhemoglobin Sodium 133 L Potassium Chloride 92.1 L Carbon Dioxide BUN 24 H Creatinine 0.4 L D Glucose 269 H POC Glucose 167 H 208 H Hemoglobin A1c Ferritin AST ALT 66 H Alkaline Phosphatase 142 H Lactate Dehydrogenase C-Reactive Protein Total Protein Albumin 3.2 L Arterial Blood Glucose Coronavirus (PCR) 05/01/21 05/01/21 05/01/21 05:39 05:39 07:45 WBC MCH MCHC RDW 16.0 H Lymph % (Auto) Lymph # (Auto) Baso # (Auto) Seg Neutrophils % Seg Neuts % (Manual) Lymphocytes % (Manual) Seg Neutrophils # Seg Neutrophils # Man Lymphocytes # (Manual) D-Dimer 3984.95 H ABG pH POC ABG pO2 ABG pO2 ABG HCO3 ABG O2 Saturation ABG Base Excess ABG Oxyhemoglobin ABG Sodium ABG Chloride ABG Glucose Oxyhemoglobin Carboxyhemoglobin Sodium Potassium Chloride Carbon Dioxide BUN Creatinine Glucose POC Glucose 229 H Hemoglobin A1c Ferritin AST ALT Alkaline Phosphatase Lactate Dehydrogenase C-Reactive Protein Total Protein Albumin Arterial Blood Glucose Coronavirus (PCR) 05/01/21 05/01/21 05/01/21 12:10 15:46 21:06 WBC MCH MCHC RDW Lymph % (Auto) Lymph # (Auto) Baso # (Auto) Seg Neutrophils % Seg Neuts % (Manual) Lymphocytes % (Manual) Seg Neutrophils # Seg Neutrophils # Man Lymphocytes # (Manual) D-Dimer ABG pH POC ABG pO2 ABG pO2 ABG HCO3 ABG O2 Saturation ABG Base Excess ABG Oxyhemoglobin ABG Sodium ABG Chloride ABG Glucose Oxyhemoglobin Carboxyhemoglobin Sodium Potassium Chloride Carbon Dioxide BUN Creatinine Glucose POC Glucose 296 H 279 H 232 H Hemoglobin A1c Ferritin AST ALT Alkaline Phosphatase Lactate Dehydrogenase C-Reactive Protein Total Protein Albumin Arterial Blood Glucose Coronavirus (PCR) 05/02/21 05/02/21 05/02/21 04:55 04:55 04:55 WBC MCH MCHC RDW 16.1 H Lymph % (Auto) Lymph # (Auto) Baso # (Auto) Seg Neutrophils % Seg Neuts % (Manual) Lymphocytes % (Manual) Seg Neutrophils # Seg Neutrophils # Man Lymphocytes # (Manual) D-Dimer 1401.08 H ABG pH POC ABG pO2 ABG pO2 ABG HCO3 ABG O2 Saturation ABG Base Excess ABG Oxyhemoglobin ABG Sodium ABG Chloride ABG Glucose Oxyhemoglobin Carboxyhemoglobin Sodium 131 L Potassium Chloride 95.5 L Carbon Dioxide BUN 20 H Creatinine 0.3 L Glucose 288 H POC Glucose Hemoglobin A1c Ferritin AST ALT Alkaline Phosphatase Lactate Dehydrogenase C-Reactive Protein Total Protein 6.0 L Albumin 3.1 L Arterial Blood Glucose Coronavirus (PCR) 05/02/21 05/02/21 05/02/21 07:53 11:45 15:25 WBC MCH MCHC RDW Lymph % (Auto) Lymph # (Auto) Baso # (Auto) Seg Neutrophils % Seg Neuts % (Manual) Lymphocytes % (Manual) Seg Neutrophils # Seg Neutrophils # Man Lymphocytes # (Manual) D-Dimer ABG pH POC ABG pO2 ABG pO2 ABG HCO3 ABG O2 Saturation ABG Base Excess ABG Oxyhemoglobin ABG Sodium ABG Chloride ABG Glucose Oxyhemoglobin Carboxyhemoglobin Sodium Potassium Chloride Carbon Dioxide BUN Creatinine Glucose POC Glucose 180 H 228 H 275 H Hemoglobin A1c Ferritin AST ALT Alkaline Phosphatase Lactate Dehydrogenase C-Reactive Protein Total Protein Albumin Arterial Blood Glucose Coronavirus (PCR) 05/02/21 05/03/21 05/03/21 22:56 04:30 04:49 WBC MCH MCHC RDW Lymph % (Auto) Lymph # (Auto) Baso # (Auto) Seg Neutrophils % Seg Neuts % (Manual) Lymphocytes % (Manual) Seg Neutrophils # Seg Neutrophils # Man Lymphocytes # (Manual) D-Dimer ABG pH 7.229 L POC ABG pO2 65.3 L ABG pO2 ABG HCO3 ABG O2 Saturation ABG Base Excess ABG Oxyhemoglobin 87.8 L ABG Sodium 133.0 L ABG Chloride 97.0 L ABG Glucose 403 H Oxyhemoglobin Carboxyhemoglobin Sodium 130 L Potassium Chloride 94.9 L Carbon Dioxide BUN 20 H Creatinine 0.5 L D Glucose 359 H POC Glucose 293 H Hemoglobin A1c Ferritin AST 54 H ALT 75 H Alkaline Phosphatase 138 H Lactate Dehydrogenase C-Reactive Protein Total Protein Albumin 3.6 L Arterial Blood Glucose 403 H Coronavirus (PCR) 05/03/21 05/03/21 05/03/21 05:27 11:26 17:57 WBC MCH MCHC RDW Lymph % (Auto) Lymph # (Auto) Baso # (Auto) Seg Neutrophils % Seg Neuts % (Manual) Lymphocytes % (Manual) Seg Neutrophils # Seg Neutrophils # Man Lymphocytes # (Manual) D-Dimer ABG pH POC ABG pO2 ABG pO2 ABG HCO3 ABG O2 Saturation ABG Base Excess ABG Oxyhemoglobin ABG Sodium ABG Chloride ABG Glucose Oxyhemoglobin Carboxyhemoglobin Sodium Potassium Chloride Carbon Dioxide BUN Creatinine Glucose POC Glucose 361 H 297 H 226 H Hemoglobin A1c Ferritin AST ALT Alkaline Phosphatase Lactate Dehydrogenase C-Reactive Protein Total Protein Albumin Arterial Blood Glucose Coronavirus (PCR) 05/03/21 05/04/21 05/04/21 23:12 05:12 07:30 WBC MCH MCHC RDW Lymph % (Auto) Lymph # (Auto) Baso # (Auto) Seg Neutrophils % Seg Neuts % (Manual) Lymphocytes % (Manual) Seg Neutrophils # Seg Neutrophils # Man Lymphocytes # (Manual) D-Dimer ABG pH POC ABG pO2 ABG pO2 ABG HCO3 ABG O2 Saturation ABG Base Excess ABG Oxyhemoglobin ABG Sodium ABG Chloride ABG Glucose Oxyhemoglobin Carboxyhemoglobin Sodium Potassium Chloride Carbon Dioxide BUN Creatinine Glucose POC Glucose 282 H 285 H 254 H Hemoglobin A1c Ferritin AST ALT Alkaline Phosphatase Lactate Dehydrogenase C-Reactive Protein Total Protein Albumin Arterial Blood Glucose Coronavirus (PCR) 05/04/21 05/04/21 05/04/21 08:58 11:45 16:07 WBC MCH MCHC RDW Lymph % (Auto) Lymph # (Auto) Baso # (Auto) Seg Neutrophils % Seg Neuts % (Manual) Lymphocytes % (Manual) Seg Neutrophils # Seg Neutrophils # Man Lymphocytes # (Manual) D-Dimer ABG pH POC ABG pO2 ABG pO2 ABG HCO3 ABG O2 Saturation ABG Base Excess ABG Oxyhemoglobin ABG Sodium ABG Chloride ABG Glucose Oxyhemoglobin Carboxyhemoglobin Sodium 134 L Potassium Chloride Carbon Dioxide BUN 20 H Creatinine 0.3 L Glucose 267 H POC Glucose 244 H 297 H Hemoglobin A1c Ferritin AST ALT Alkaline Phosphatase Lactate Dehydrogenase C-Reactive Protein Total Protein 6.0 L Albumin 3.2 L Arterial Blood Glucose Coronavirus (PCR) 05/04/21 05/05/21 05/05/21 23:32 05:00 05:13 WBC MCH MCHC RDW Lymph % (Auto) Lymph # (Auto) Baso # (Auto) Seg Neutrophils % Seg Neuts % (Manual) Lymphocytes % (Manual) Seg Neutrophils # Seg Neutrophils # Man Lymphocytes # (Manual) D-Dimer ABG pH POC ABG pO2 ABG pO2 ABG HCO3 ABG O2 Saturation ABG Base Excess ABG Oxyhemoglobin ABG Sodium ABG Chloride ABG Glucose Oxyhemoglobin Carboxyhemoglobin Sodium 132 L Potassium Chloride 96.4 L Carbon Dioxide BUN 22 H Creatinine 0.3 L Glucose 228 H POC Glucose 154 H 260 H Hemoglobin A1c Ferritin AST ALT 67 H Alkaline Phosphatase Lactate Dehydrogenase C-Reactive Protein Total Protein 6.1 L Albumin 3.2 L Arterial Blood Glucose Coronavirus (PCR) 05/05/21 05/05/21 05/05/21 11:32 17:49 23:07 WBC MCH MCHC RDW Lymph % (Auto) Lymph # (Auto) Baso # (Auto) Seg Neutrophils % Seg Neuts % (Manual) Lymphocytes % (Manual) Seg Neutrophils # Seg Neutrophils # Man Lymphocytes # (Manual) D-Dimer ABG pH POC ABG pO2 ABG pO2 ABG HCO3 ABG O2 Saturation ABG Base Excess ABG Oxyhemoglobin ABG Sodium ABG Chloride ABG Glucose Oxyhemoglobin Carboxyhemoglobin Sodium Potassium Chloride Carbon Dioxide BUN Creatinine Glucose POC Glucose 279 H 308 H 213 H Hemoglobin A1c Ferritin AST ALT Alkaline Phosphatase Lactate Dehydrogenase C-Reactive Protein Total Protein Albumin Arterial Blood Glucose Coronavirus (PCR) 05/06/21 05/06/21 05/06/21 05:00 05:00 05:20 WBC MCH MCHC RDW 16.8 H Lymph % (Auto) Lymph # (Auto) Baso # (Auto) Seg Neutrophils % Seg Neuts % (Manual) 99.0 H Lymphocytes % (Manual) Seg Neutrophils # Seg Neutrophils # Man 10.9 H Lymphocytes # (Manual) 0.0 L D-Dimer ABG pH POC ABG pO2 ABG pO2 ABG HCO3 ABG O2 Saturation ABG Base Excess ABG Oxyhemoglobin ABG Sodium ABG Chloride ABG Glucose Oxyhemoglobin Carboxyhemoglobin Sodium 133 L Potassium Chloride Carbon Dioxide BUN 21 H Creatinine 0.3 L Glucose 259 H POC Glucose 308 H Hemoglobin A1c Ferritin AST ALT Alkaline Phosphatase Lactate Dehydrogenase C-Reactive Protein Total Protein Albumin 3.2 L Arterial Blood Glucose Coronavirus (PCR) 05/06/21 05/06/21 05/06/21 11:24 17:54 21:32 WBC MCH MCHC RDW Lymph % (Auto) Lymph # (Auto) Baso # (Auto) Seg Neutrophils % Seg Neuts % (Manual) Lymphocytes % (Manual) Seg Neutrophils # Seg Neutrophils # Man Lymphocytes # (Manual) D-Dimer ABG pH POC ABG pO2 ABG pO2 ABG HCO3 ABG O2 Saturation ABG Base Excess ABG Oxyhemoglobin ABG Sodium ABG Chloride ABG Glucose Oxyhemoglobin Carboxyhemoglobin Sodium Potassium Chloride Carbon Dioxide BUN Creatinine Glucose POC Glucose 262 H 124 H 246 H Hemoglobin A1c Ferritin AST ALT Alkaline Phosphatase Lactate Dehydrogenase C-Reactive Protein Total Protein Albumin Arterial Blood Glucose Coronavirus (PCR) 05/06/21 05/07/21 05/07/21 23:10 04:54 04:54 WBC MCH MCHC RDW Lymph % (Auto) Lymph # (Auto) Baso # (Auto) Seg Neutrophils % Seg Neuts % (Manual) Lymphocytes % (Manual) Seg Neutrophils # Seg Neutrophils # Man Lymphocytes # (Manual) D-Dimer 1609.28 H ABG pH POC ABG pO2 ABG pO2 ABG HCO3 ABG O2 Saturation ABG Base Excess ABG Oxyhemoglobin ABG Sodium ABG Chloride ABG Glucose Oxyhemoglobin Carboxyhemoglobin Sodium 136 L Potassium Chloride Carbon Dioxide BUN 23 H Creatinine 0.3 L Glucose 110 H POC Glucose 249 H Hemoglobin A1c Ferritin AST ALT Alkaline Phosphatase Lactate Dehydrogenase C-Reactive Protein Total Protein 6.2 L Albumin 3.0 L Arterial Blood Glucose Coronavirus (PCR) 05/07/21 05/07/21 05/07/21 04:54 04:54 11:41 WBC MCH MCHC RDW Lymph % (Auto) Lymph # (Auto) Baso # (Auto) Seg Neutrophils % Seg Neuts % (Manual) Lymphocytes % (Manual) Seg Neutrophils # Seg Neutrophils # Man Lymphocytes # (Manual) D-Dimer ABG pH POC ABG pO2 ABG pO2 ABG HCO3 ABG O2 Saturation ABG Base Excess ABG Oxyhemoglobin ABG Sodium ABG Chloride ABG Glucose Oxyhemoglobin Carboxyhemoglobin Sodium Potassium Chloride Carbon Dioxide BUN Creatinine Glucose POC Glucose 118 H Hemoglobin A1c Ferritin 296.1 H AST ALT Alkaline Phosphatase Lactate Dehydrogenase 724 H C-Reactive Protein Total Protein Albumin Arterial Blood Glucose Coronavirus (PCR) 05/07/21 05/07/21 05/08/21 16:43 22:34 06:44 WBC MCH MCHC RDW Lymph % (Auto) Lymph # (Auto) Baso # (Auto) Seg Neutrophils % Seg Neuts % (Manual) Lymphocytes % (Manual) Seg Neutrophils # Seg Neutrophils # Man Lymphocytes # (Manual) D-Dimer ABG pH POC ABG pO2 ABG pO2 ABG HCO3 ABG O2 Saturation ABG Base Excess ABG Oxyhemoglobin ABG Sodium ABG Chloride ABG Glucose Oxyhemoglobin Carboxyhemoglobin Sodium Potassium Chloride Carbon Dioxide BUN Creatinine Glucose POC Glucose 159 H 233 H 235 H Hemoglobin A1c Ferritin AST ALT Alkaline Phosphatase Lactate Dehydrogenase C-Reactive Protein Total Protein Albumin Arterial Blood Glucose Coronavirus (PCR) 05/08/21 05/08/21 05/08/21 07:49 11:56 17:13 WBC MCH MCHC RDW Lymph % (Auto) Lymph # (Auto) Baso # (Auto) Seg Neutrophils % Seg Neuts % (Manual) Lymphocytes % (Manual) Seg Neutrophils # Seg Neutrophils # Man Lymphocytes # (Manual) D-Dimer ABG pH POC ABG pO2 ABG pO2 ABG HCO3 ABG O2 Saturation ABG Base Excess ABG Oxyhemoglobin ABG Sodium ABG Chloride ABG Glucose Oxyhemoglobin Carboxyhemoglobin Sodium Potassium Chloride Carbon Dioxide BUN Creatinine Glucose POC Glucose 219 H 184 H 182 H Hemoglobin A1c Ferritin AST ALT Alkaline Phosphatase Lactate Dehydrogenase C-Reactive Protein Total Protein Albumin Arterial Blood Glucose Coronavirus (PCR) 05/08/21 05/09/21 05/09/21 23:35 05:20 05:20 WBC MCH MCHC RDW Lymph % (Auto) Lymph # (Auto) Baso # (Auto) Seg Neutrophils % Seg Neuts % (Manual) Lymphocytes % (Manual) Seg Neutrophils # Seg Neutrophils # Man Lymphocytes # (Manual) D-Dimer 1003.87 H ABG pH POC ABG pO2 ABG pO2 ABG HCO3 ABG O2 Saturation ABG Base Excess ABG Oxyhemoglobin ABG Sodium ABG Chloride ABG Glucose Oxyhemoglobin Carboxyhemoglobin Sodium Potassium Chloride Carbon Dioxide BUN Creatinine Glucose POC Glucose 198 H Hemoglobin A1c Ferritin 378.7 H AST ALT Alkaline Phosphatase Lactate Dehydrogenase C-Reactive Protein Total Protein Albumin Arterial Blood Glucose Coronavirus (PCR) 05/09/21 05/09/21 05/09/21 05:20 06:04 12:53 WBC MCH MCHC RDW Lymph % (Auto) Lymph # (Auto) Baso # (Auto) Seg Neutrophils % Seg Neuts % (Manual) Lymphocytes % (Manual) Seg Neutrophils # Seg Neutrophils # Man Lymphocytes # (Manual) D-Dimer ABG pH POC ABG pO2 ABG pO2 ABG HCO3 ABG O2 Saturation ABG Base Excess ABG Oxyhemoglobin ABG Sodium ABG Chloride ABG Glucose Oxyhemoglobin Carboxyhemoglobin Sodium Potassium Chloride Carbon Dioxide BUN Creatinine Glucose POC Glucose 159 H 180 H Hemoglobin A1c Ferritin AST ALT Alkaline Phosphatase Lactate Dehydrogenase 558 H C-Reactive Protein 2.40 H Total Protein Albumin Arterial Blood Glucose Coronavirus (PCR) 05/09/21 05/09/21 05/10/21 16:43 21:27 10:18 WBC MCH MCHC RDW Lymph % (Auto) Lymph # (Auto) Baso # (Auto) Seg Neutrophils % Seg Neuts % (Manual) Lymphocytes % (Manual) Seg Neutrophils # Seg Neutrophils # Man Lymphocytes # (Manual) D-Dimer ABG pH POC ABG pO2 ABG pO2 ABG HCO3 ABG O2 Saturation ABG Base Excess ABG Oxyhemoglobin ABG Sodium ABG Chloride ABG Glucose Oxyhemoglobin Carboxyhemoglobin Sodium Potassium Chloride Carbon Dioxide BUN Creatinine Glucose POC Glucose 212 H 285 H 261 H Hemoglobin A1c Ferritin AST ALT Alkaline Phosphatase Lactate Dehydrogenase C-Reactive Protein Total Protein Albumin Arterial Blood Glucose Coronavirus (PCR) 05/10/21 05/10/21 05/11/21 17:58 18:02 00:29 WBC MCH MCHC RDW Lymph % (Auto) Lymph # (Auto) Baso # (Auto) Seg Neutrophils % Seg Neuts % (Manual) Lymphocytes % (Manual) Seg Neutrophils # Seg Neutrophils # Man Lymphocytes # (Manual) D-Dimer ABG pH POC ABG pO2 ABG pO2 ABG HCO3 ABG O2 Saturation ABG Base Excess ABG Oxyhemoglobin ABG Sodium ABG Chloride ABG Glucose Oxyhemoglobin Carboxyhemoglobin Sodium Potassium Chloride Carbon Dioxide BUN Creatinine Glucose POC Glucose 213 H 179 H 149 H Hemoglobin A1c Ferritin AST ALT Alkaline Phosphatase Lactate Dehydrogenase C-Reactive Protein Total Protein Albumin Arterial Blood Glucose Coronavirus (PCR) 05/11/21 05/11/21 05/11/21 05:22 11:32 17:00 WBC 14.9 H MCH MCHC RDW 18.9 H Lymph % (Auto) 4.9 L Lymph # (Auto) 0.7 L Baso # (Auto) 0.2 H Seg Neutrophils % Seg Neuts % (Manual) Lymphocytes % (Manual) Seg Neutrophils # 13.3 H Seg Neutrophils # Man Lymphocytes # (Manual) D-Dimer ABG pH POC ABG pO2 ABG pO2 ABG HCO3 ABG O2 Saturation ABG Base Excess ABG Oxyhemoglobin ABG Sodium ABG Chloride ABG Glucose Oxyhemoglobin Carboxyhemoglobin Sodium Potassium Chloride Carbon Dioxide BUN Creatinine Glucose POC Glucose 162 H 179 H Hemoglobin A1c Ferritin AST ALT Alkaline Phosphatase Lactate Dehydrogenase C-Reactive Protein Total Protein Albumin Arterial Blood Glucose Coronavirus (PCR) 05/11/21 05/11/21 05/11/21 17:00 17:33 22:03 WBC MCH MCHC RDW Lymph % (Auto) Lymph # (Auto) Baso # (Auto) Seg Neutrophils % Seg Neuts % (Manual) Lymphocytes % (Manual) Seg Neutrophils # Seg Neutrophils # Man Lymphocytes # (Manual) D-Dimer ABG pH POC ABG pO2 ABG pO2 ABG HCO3 ABG O2 Saturation ABG Base Excess ABG Oxyhemoglobin ABG Sodium ABG Chloride ABG Glucose Oxyhemoglobin Carboxyhemoglobin Sodium 135 L Potassium Chloride 97.3 L Carbon Dioxide BUN 21 H Creatinine 0.3 L Glucose 133 H POC Glucose 140 H 282 H Hemoglobin A1c Ferritin AST ALT 60 H Alkaline Phosphatase Lactate Dehydrogenase C-Reactive Protein Total Protein Albumin 3.1 L Arterial Blood Glucose Coronavirus (PCR) 05/12/21 05/12/21 05/12/21 04:05 04:05 04:05 WBC MCH MCHC RDW 18.4 H Lymph % (Auto) Lymph # (Auto) Baso # (Auto) Seg Neutrophils % Seg Neuts % (Manual) 94.0 H Lymphocytes % (Manual) 4.0 L Seg Neutrophils # Seg Neutrophils # Man Lymphocytes # (Manual) 0.3 L D-Dimer ABG pH POC ABG pO2 ABG pO2 ABG HCO3 ABG O2 Saturation ABG Base Excess ABG Oxyhemoglobin ABG Sodium ABG Chloride ABG Glucose Oxyhemoglobin Carboxyhemoglobin Sodium 136 L Potassium Chloride Carbon Dioxide BUN 18 H Creatinine 0.2 L Glucose 142 H POC Glucose Hemoglobin A1c Ferritin 350.7 H AST ALT Alkaline Phosphatase Lactate Dehydrogenase 546 H C-Reactive Protein Total Protein 6.1 L Albumin 3.0 L Arterial Blood Glucose Coronavirus (PCR) 05/12/21 05/12/21 05/12/21 05:11 11:17 16:27 WBC MCH MCHC RDW Lymph % (Auto) Lymph # (Auto) Baso # (Auto) Seg Neutrophils % Seg Neuts % (Manual) Lymphocytes % (Manual) Seg Neutrophils # Seg Neutrophils # Man Lymphocytes # (Manual) D-Dimer ABG pH POC ABG pO2 ABG pO2 ABG HCO3 ABG O2 Saturation ABG Base Excess ABG Oxyhemoglobin ABG Sodium ABG Chloride ABG Glucose Oxyhemoglobin Carboxyhemoglobin Sodium Potassium Chloride Carbon Dioxide BUN Creatinine Glucose POC Glucose 152 H 190 H 261 H Hemoglobin A1c Ferritin AST ALT Alkaline Phosphatase Lactate Dehydrogenase C-Reactive Protein Total Protein Albumin Arterial Blood Glucose Coronavirus (PCR) 05/12/21 05/13/21 05/13/21 20:55 11:08 21:41 WBC MCH MCHC RDW Lymph % (Auto) Lymph # (Auto) Baso # (Auto) Seg Neutrophils % Seg Neuts % (Manual) Lymphocytes % (Manual) Seg Neutrophils # Seg Neutrophils # Man Lymphocytes # (Manual) D-Dimer ABG pH POC ABG pO2 ABG pO2 ABG HCO3 ABG O2 Saturation ABG Base Excess ABG Oxyhemoglobin ABG Sodium ABG Chloride ABG Glucose Oxyhemoglobin Carboxyhemoglobin Sodium Potassium Chloride Carbon Dioxide BUN Creatinine Glucose POC Glucose 231 H 106 H 174 H Hemoglobin A1c Ferritin AST ALT Alkaline Phosphatase Lactate Dehydrogenase C-Reactive Protein Total Protein Albumin Arterial Blood Glucose Coronavirus (PCR) 05/14/21 05/14/21 05/14/21 00:53 02:23 06:06 WBC MCH MCHC RDW Lymph % (Auto) Lymph # (Auto) Baso # (Auto) Seg Neutrophils % Seg Neuts % (Manual) Lymphocytes % (Manual) Seg Neutrophils # Seg Neutrophils # Man Lymphocytes # (Manual) D-Dimer ABG pH POC ABG pO2 ABG pO2 130.3 H ABG HCO3 30.6 H ABG O2 Saturation ABG Base Excess 4.9 H ABG Oxyhemoglobin ABG Sodium ABG Chloride ABG Glucose Oxyhemoglobin Carboxyhemoglobin Sodium Potassium Chloride Carbon Dioxide BUN Creatinine Glucose POC Glucose 229 H 119 H Hemoglobin A1c Ferritin AST ALT Alkaline Phosphatase Lactate Dehydrogenase C-Reactive Protein Total Protein Albumin Arterial Blood Glucose Coronavirus (PCR) 05/14/21 05/14/21 05/14/21 07:13 07:13 07:13 WBC MCH MCHC RDW Lymph % (Auto) Lymph # (Auto) Baso # (Auto) Seg Neutrophils % Seg Neuts % (Manual) Lymphocytes % (Manual) Seg Neutrophils # Seg Neutrophils # Man Lymphocytes # (Manual) D-Dimer 712.80 H ABG pH POC ABG pO2 ABG pO2 ABG HCO3 ABG O2 Saturation ABG Base Excess ABG Oxyhemoglobin ABG Sodium ABG Chloride ABG Glucose Oxyhemoglobin Carboxyhemoglobin Sodium 133 L Potassium Chloride 95.5 L Carbon Dioxide 32 H BUN Creatinine 0.2 L Glucose 137 H POC Glucose Hemoglobin A1c Ferritin 283.5 H AST ALT 63 H Alkaline Phosphatase Lactate Dehydrogenase 563 H C-Reactive Protein Total Protein 6.1 L Albumin 3.0 L Arterial Blood Glucose Coronavirus (PCR) 05/14/21 05/14/21 05/14/21 12:21 15:33 21:50 WBC MCH MCHC RDW Lymph % (Auto) Lymph # (Auto) Baso # (Auto) Seg Neutrophils % Seg Neuts % (Manual) Lymphocytes % (Manual) Seg Neutrophils # Seg Neutrophils # Man Lymphocytes # (Manual) D-Dimer ABG pH POC ABG pO2 ABG pO2 ABG HCO3 ABG O2 Saturation ABG Base Excess ABG Oxyhemoglobin ABG Sodium ABG Chloride ABG Glucose Oxyhemoglobin Carboxyhemoglobin Sodium Potassium Chloride Carbon Dioxide BUN Creatinine Glucose POC Glucose 143 H 204 H 202 H Hemoglobin A1c Ferritin AST ALT Alkaline Phosphatase Lactate Dehydrogenase C-Reactive Protein Total Protein Albumin Arterial Blood Glucose Coronavirus (PCR) 05/15/21 05/15/21 05/15/21 05:05 11:12 16:39 WBC MCH MCHC RDW Lymph % (Auto) Lymph # (Auto) Baso # (Auto) Seg Neutrophils % Seg Neuts % (Manual) Lymphocytes % (Manual) Seg Neutrophils # Seg Neutrophils # Man Lymphocytes # (Manual) D-Dimer ABG pH POC ABG pO2 ABG pO2 ABG HCO3 ABG O2 Saturation ABG Base Excess ABG Oxyhemoglobin ABG Sodium ABG Chloride ABG Glucose Oxyhemoglobin Carboxyhemoglobin Sodium Potassium Chloride Carbon Dioxide BUN Creatinine Glucose POC Glucose 125 H 201 H 241 H Hemoglobin A1c Ferritin AST ALT Alkaline Phosphatase Lactate Dehydrogenase C-Reactive Protein Total Protein Albumin Arterial Blood Glucose Coronavirus (PCR) 05/15/21 05/16/21 05/16/21 21:31 05:04 10:40 WBC MCH MCHC RDW Lymph % (Auto) Lymph # (Auto) Baso # (Auto) Seg Neutrophils % Seg Neuts % (Manual) Lymphocytes % (Manual) Seg Neutrophils # Seg Neutrophils # Man Lymphocytes # (Manual) D-Dimer ABG pH POC ABG pO2 ABG pO2 ABG HCO3 ABG O2 Saturation ABG Base Excess ABG Oxyhemoglobin ABG Sodium ABG Chloride ABG Glucose Oxyhemoglobin Carboxyhemoglobin Sodium Potassium Chloride Carbon Dioxide BUN Creatinine Glucose POC Glucose 234 H 123 H 231 H Hemoglobin A1c Ferritin AST ALT Alkaline Phosphatase Lactate Dehydrogenase C-Reactive Protein Total Protein Albumin Arterial Blood Glucose Coronavirus (PCR) 05/16/21 05/16/21 05/17/21 18:23 21:29 06:20 WBC MCH MCHC RDW 18.8 H Lymph % (Auto) 10.2 L Lymph # (Auto) 0.8 L Baso # (Auto) Seg Neutrophils % 85.8 H Seg Neuts % (Manual) Lymphocytes % (Manual) Seg Neutrophils # Seg Neutrophils # Man Lymphocytes # (Manual) D-Dimer ABG pH POC ABG pO2 ABG pO2 ABG HCO3 ABG O2 Saturation ABG Base Excess ABG Oxyhemoglobin ABG Sodium ABG Chloride ABG Glucose Oxyhemoglobin Carboxyhemoglobin Sodium Potassium Chloride Carbon Dioxide BUN Creatinine Glucose POC Glucose 266 H 234 H Hemoglobin A1c Ferritin AST ALT Alkaline Phosphatase Lactate Dehydrogenase C-Reactive Protein Total Protein Albumin Arterial Blood Glucose Coronavirus (PCR) 05/17/21 05/17/21 05/17/21 06:20 11:06 16:36 WBC MCH MCHC RDW Lymph % (Auto) Lymph # (Auto) Baso # (Auto) Seg Neutrophils % Seg Neuts % (Manual) Lymphocytes % (Manual) Seg Neutrophils # Seg Neutrophils # Man Lymphocytes # (Manual) D-Dimer ABG pH POC ABG pO2 ABG pO2 ABG HCO3 ABG O2 Saturation ABG Base Excess ABG Oxyhemoglobin ABG Sodium ABG Chloride ABG Glucose Oxyhemoglobin Carboxyhemoglobin Sodium Potassium Chloride Carbon Dioxide 33 H BUN Creatinine 0.2 L Glucose 101 H POC Glucose 209 H 180 H Hemoglobin A1c Ferritin AST ALT Alkaline Phosphatase Lactate Dehydrogenase C-Reactive Protein Total Protein Albumin Arterial Blood Glucose Coronavirus (PCR) 05/17/21 05/18/21 05/18/21 21:06 12:00 15:06 WBC MCH MCHC RDW Lymph % (Auto) Lymph # (Auto) Baso # (Auto) Seg Neutrophils % Seg Neuts % (Manual) Lymphocytes % (Manual) Seg Neutrophils # Seg Neutrophils # Man Lymphocytes # (Manual) D-Dimer 874.02 H ABG pH POC ABG pO2 ABG pO2 ABG HCO3 ABG O2 Saturation ABG Base Excess ABG Oxyhemoglobin ABG Sodium ABG Chloride ABG Glucose Oxyhemoglobin Carboxyhemoglobin Sodium Potassium Chloride Carbon Dioxide BUN Creatinine Glucose POC Glucose 256 H 139 H Hemoglobin A1c Ferritin AST ALT Alkaline Phosphatase Lactate Dehydrogenase C-Reactive Protein Total Protein Albumin Arterial Blood Glucose Coronavirus (PCR) 05/18/21 05/18/21 05/18/21 15:06 15:06 16:08 WBC MCH MCHC RDW Lymph % (Auto) Lymph # (Auto) Baso # (Auto) Seg Neutrophils % Seg Neuts % (Manual) Lymphocytes % (Manual) Seg Neutrophils # Seg Neutrophils # Man Lymphocytes # (Manual) D-Dimer ABG pH POC ABG pO2 ABG pO2 ABG HCO3 ABG O2 Saturation ABG Base Excess ABG Oxyhemoglobin ABG Sodium ABG Chloride ABG Glucose Oxyhemoglobin Carboxyhemoglobin Sodium Potassium Chloride Carbon Dioxide BUN Creatinine Glucose POC Glucose 178 H Hemoglobin A1c Ferritin 289.6 H AST ALT Alkaline Phosphatase Lactate Dehydrogenase 605 H C-Reactive Protein Total Protein Albumin Arterial Blood Glucose Coronavirus (PCR) 05/18/21 05/19/21 05/19/21 21:22 11:57 15:26 WBC MCH MCHC RDW Lymph % (Auto) Lymph # (Auto) Baso # (Auto) Seg Neutrophils % Seg Neuts % (Manual) Lymphocytes % (Manual) Seg Neutrophils # Seg Neutrophils # Man Lymphocytes # (Manual) D-Dimer ABG pH POC ABG pO2 ABG pO2 ABG HCO3 ABG O2 Saturation ABG Base Excess ABG Oxyhemoglobin ABG Sodium ABG Chloride ABG Glucose Oxyhemoglobin Carboxyhemoglobin Sodium Potassium Chloride Carbon Dioxide BUN Creatinine Glucose POC Glucose 241 H 201 H 209 H Hemoglobin A1c Ferritin AST ALT Alkaline Phosphatase Lactate Dehydrogenase C-Reactive Protein Total Protein Albumin Arterial Blood Glucose Coronavirus (PCR) 05/19/21 05/20/21 05/20/21 20:59 07:38 08:01 WBC MCH MCHC RDW 19.7 H Lymph % (Auto) 8.3 L Lymph # (Auto) 0.8 L Baso # (Auto) Seg Neutrophils % 88.6 H Seg Neuts % (Manual) Lymphocytes % (Manual) Seg Neutrophils # 8.4 H Seg Neutrophils # Man Lymphocytes # (Manual) D-Dimer ABG pH POC ABG pO2 ABG pO2 ABG HCO3 ABG O2 Saturation ABG Base Excess ABG Oxyhemoglobin ABG Sodium ABG Chloride ABG Glucose Oxyhemoglobin Carboxyhemoglobin Sodium Potassium Chloride Carbon Dioxide BUN Creatinine Glucose POC Glucose 226 H 130 H Hemoglobin A1c Ferritin AST ALT Alkaline Phosphatase Lactate Dehydrogenase C-Reactive Protein Total Protein Albumin Arterial Blood Glucose Coronavirus (PCR) 05/20/21 05/20/21 05/20/21 08:01 11:00 16:43 WBC MCH MCHC RDW Lymph % (Auto) Lymph # (Auto) Baso # (Auto) Seg Neutrophils % Seg Neuts % (Manual) Lymphocytes % (Manual) Seg Neutrophils # Seg Neutrophils # Man Lymphocytes # (Manual) D-Dimer ABG pH POC ABG pO2 ABG pO2 ABG HCO3 ABG O2 Saturation ABG Base Excess ABG Oxyhemoglobin ABG Sodium ABG Chloride ABG Glucose Oxyhemoglobin Carboxyhemoglobin Sodium Potassium Chloride Carbon Dioxide BUN 18 H Creatinine 0.2 L Glucose 132 H POC Glucose 237 H 240 H Hemoglobin A1c Ferritin AST ALT Alkaline Phosphatase Lactate Dehydrogenase C-Reactive Protein Total Protein Albumin Arterial Blood Glucose Coronavirus (PCR) 05/20/21 05/21/21 05/21/21 21:21 07:35 11:32 WBC MCH MCHC RDW Lymph % (Auto) Lymph # (Auto) Baso # (Auto) Seg Neutrophils % Seg Neuts % (Manual) Lymphocytes % (Manual) Seg Neutrophils # Seg Neutrophils # Man Lymphocytes # (Manual) D-Dimer ABG pH POC ABG pO2 ABG pO2 ABG HCO3 ABG O2 Saturation ABG Base Excess ABG Oxyhemoglobin ABG Sodium ABG Chloride ABG Glucose Oxyhemoglobin Carboxyhemoglobin Sodium Potassium Chloride Carbon Dioxide BUN Creatinine Glucose POC Glucose 241 H 162 H 171 H Hemoglobin A1c Ferritin AST ALT Alkaline Phosphatase Lactate Dehydrogenase C-Reactive Protein Total Protein Albumin Arterial Blood Glucose Coronavirus (PCR) 05/21/21 05/21/21 05/22/21 16:22 20:43 05:14 WBC MCH MCHC RDW Lymph % (Auto) Lymph # (Auto) Baso # (Auto) Seg Neutrophils % Seg Neuts % (Manual) Lymphocytes % (Manual) Seg Neutrophils # Seg Neutrophils # Man Lymphocytes # (Manual) D-Dimer ABG pH POC ABG pO2 ABG pO2 ABG HCO3 ABG O2 Saturation ABG Base Excess ABG Oxyhemoglobin ABG Sodium ABG Chloride ABG Glucose Oxyhemoglobin Carboxyhemoglobin Sodium Potassium Chloride Carbon Dioxide BUN Creatinine Glucose POC Glucose 244 H 299 H 140 H Hemoglobin A1c Ferritin AST ALT Alkaline Phosphatase Lactate Dehydrogenase C-Reactive Protein Total Protein Albumin Arterial Blood Glucose Coronavirus (PCR) 05/22/21 05/22/21 05/22/21 08:45 11:54 16:15 WBC MCH MCHC RDW Lymph % (Auto) Lymph # (Auto) Baso # (Auto) Seg Neutrophils % Seg Neuts % (Manual) Lymphocytes % (Manual) Seg Neutrophils # Seg Neutrophils # Man Lymphocytes # (Manual) D-Dimer ABG pH POC ABG pO2 ABG pO2 ABG HCO3 ABG O2 Saturation ABG Base Excess ABG Oxyhemoglobin ABG Sodium ABG Chloride ABG Glucose Oxyhemoglobin Carboxyhemoglobin Sodium Potassium Chloride Carbon Dioxide BUN Creatinine Glucose POC Glucose 133 H 265 H 221 H Hemoglobin A1c Ferritin AST ALT Alkaline Phosphatase Lactate Dehydrogenase C-Reactive Protein Total Protein Albumin Arterial Blood Glucose Coronavirus (PCR) 05/22/21 05/23/21 05/23/21 21:43 08:20 09:50 WBC MCH MCHC RDW Lymph % (Auto) Lymph # (Auto) Baso # (Auto) Seg Neutrophils % Seg Neuts % (Manual) Lymphocytes % (Manual) Seg Neutrophils # Seg Neutrophils # Man Lymphocytes # (Manual) D-Dimer 910.38 H ABG pH POC ABG pO2 ABG pO2 ABG HCO3 ABG O2 Saturation ABG Base Excess ABG Oxyhemoglobin ABG Sodium ABG Chloride ABG Glucose Oxyhemoglobin Carboxyhemoglobin Sodium Potassium Chloride Carbon Dioxide BUN Creatinine Glucose POC Glucose 262 H 140 H Hemoglobin A1c Ferritin AST ALT Alkaline Phosphatase Lactate Dehydrogenase C-Reactive Protein Total Protein Albumin Arterial Blood Glucose Coronavirus (PCR) 05/23/21 05/23/21 05/23/21 09:50 09:50 10:52 WBC MCH MCHC RDW Lymph % (Auto) Lymph # (Auto) Baso # (Auto) Seg Neutrophils % Seg Neuts % (Manual) Lymphocytes % (Manual) Seg Neutrophils # Seg Neutrophils # Man Lymphocytes # (Manual) D-Dimer ABG pH POC ABG pO2 ABG pO2 ABG HCO3 ABG O2 Saturation ABG Base Excess ABG Oxyhemoglobin ABG Sodium ABG Chloride ABG Glucose Oxyhemoglobin Carboxyhemoglobin Sodium Potassium Chloride Carbon Dioxide BUN Creatinine Glucose POC Glucose 241 H Hemoglobin A1c Ferritin 244.9 H AST ALT Alkaline Phosphatase Lactate Dehydrogenase 584 H C-Reactive Protein Total Protein Albumin Arterial Blood Glucose Coronavirus (PCR) 05/23/21 05/23/21 05/24/21 17:24 21:52 07:44 WBC MCH MCHC RDW Lymph % (Auto) Lymph # (Auto) Baso # (Auto) Seg Neutrophils % Seg Neuts % (Manual) Lymphocytes % (Manual) Seg Neutrophils # Seg Neutrophils # Man Lymphocytes # (Manual) D-Dimer ABG pH POC ABG pO2 ABG pO2 ABG HCO3 ABG O2 Saturation ABG Base Excess ABG Oxyhemoglobin ABG Sodium ABG Chloride ABG Glucose Oxyhemoglobin Carboxyhemoglobin Sodium Potassium Chloride Carbon Dioxide BUN Creatinine Glucose POC Glucose 197 H 289 H 161 H Hemoglobin A1c Ferritin AST ALT Alkaline Phosphatase Lactate Dehydrogenase C-Reactive Protein Total Protein Albumin Arterial Blood Glucose Coronavirus (PCR) 05/24/21 05/24/21 05/24/21 11:17 17:51 21:26 WBC MCH MCHC RDW Lymph % (Auto) Lymph # (Auto) Baso # (Auto) Seg Neutrophils % Seg Neuts % (Manual) Lymphocytes % (Manual) Seg Neutrophils # Seg Neutrophils # Man Lymphocytes # (Manual) D-Dimer ABG pH POC ABG pO2 ABG pO2 ABG HCO3 ABG O2 Saturation ABG Base Excess ABG Oxyhemoglobin ABG Sodium ABG Chloride ABG Glucose Oxyhemoglobin Carboxyhemoglobin Sodium Potassium Chloride Carbon Dioxide BUN Creatinine Glucose POC Glucose 308 H 175 H 198 H Hemoglobin A1c Ferritin AST ALT Alkaline Phosphatase Lactate Dehydrogenase C-Reactive Protein Total Protein Albumin Arterial Blood Glucose Coronavirus (PCR) 05/25/21 05/25/21 05/25/21 08:14 11:13 17:13 WBC MCH MCHC RDW Lymph % (Auto) Lymph # (Auto) Baso # (Auto) Seg Neutrophils % Seg Neuts % (Manual) Lymphocytes % (Manual) Seg Neutrophils # Seg Neutrophils # Man Lymphocytes # (Manual) D-Dimer ABG pH POC ABG pO2 ABG pO2 ABG HCO3 ABG O2 Saturation ABG Base Excess ABG Oxyhemoglobin ABG Sodium ABG Chloride ABG Glucose Oxyhemoglobin Carboxyhemoglobin Sodium Potassium Chloride Carbon Dioxide BUN Creatinine Glucose POC Glucose 203 H 339 H 235 H Hemoglobin A1c Ferritin AST ALT Alkaline Phosphatase Lactate Dehydrogenase C-Reactive Protein Total Protein Albumin Arterial Blood Glucose Coronavirus (PCR) 05/25/21 05/26/21 05/26/21 21:03 07:33 11:19 WBC MCH MCHC RDW Lymph % (Auto) Lymph # (Auto) Baso # (Auto) Seg Neutrophils % Seg Neuts % (Manual) Lymphocytes % (Manual) Seg Neutrophils # Seg Neutrophils # Man Lymphocytes # (Manual) D-Dimer ABG pH POC ABG pO2 ABG pO2 ABG HCO3 ABG O2 Saturation ABG Base Excess ABG Oxyhemoglobin ABG Sodium ABG Chloride ABG Glucose Oxyhemoglobin Carboxyhemoglobin Sodium Potassium Chloride Carbon Dioxide BUN Creatinine Glucose POC Glucose 263 H 156 H 288 H Hemoglobin A1c Ferritin AST ALT Alkaline Phosphatase Lactate Dehydrogenase C-Reactive Protein Total Protein Albumin Arterial Blood Glucose Coronavirus (PCR) 05/26/21 05/26/21 05/27/21 16:26 20:55 07:38 WBC MCH MCHC RDW Lymph % (Auto) Lymph # (Auto) Baso # (Auto) Seg Neutrophils % Seg Neuts % (Manual) Lymphocytes % (Manual) Seg Neutrophils # Seg Neutrophils # Man Lymphocytes # (Manual) D-Dimer ABG pH POC ABG pO2 ABG pO2 ABG HCO3 ABG O2 Saturation ABG Base Excess ABG Oxyhemoglobin ABG Sodium ABG Chloride ABG Glucose Oxyhemoglobin Carboxyhemoglobin Sodium Potassium Chloride Carbon Dioxide BUN Creatinine Glucose POC Glucose 286 H 293 H 115 H Hemoglobin A1c Ferritin AST ALT Alkaline Phosphatase Lactate Dehydrogenase C-Reactive Protein Total Protein Albumin Arterial Blood Glucose Coronavirus (PCR) 05/27/21 05/27/21 05/27/21 11:46 15:58 21:02 WBC MCH MCHC RDW Lymph % (Auto) Lymph # (Auto) Baso # (Auto) Seg Neutrophils % Seg Neuts % (Manual) Lymphocytes % (Manual) Seg Neutrophils # Seg Neutrophils # Man Lymphocytes # (Manual) D-Dimer ABG pH POC ABG pO2 ABG pO2 ABG HCO3 ABG O2 Saturation ABG Base Excess ABG Oxyhemoglobin ABG Sodium ABG Chloride ABG Glucose Oxyhemoglobin Carboxyhemoglobin Sodium Potassium Chloride Carbon Dioxide BUN Creatinine Glucose POC Glucose 260 H 318 H 246 H Hemoglobin A1c Ferritin AST ALT Alkaline Phosphatase Lactate Dehydrogenase C-Reactive Protein Total Protein Albumin Arterial Blood Glucose Coronavirus (PCR) 05/28/21 05/28/21 05/28/21 07:34 11:31 16:36 WBC MCH MCHC RDW Lymph % (Auto) Lymph # (Auto) Baso # (Auto) Seg Neutrophils % Seg Neuts % (Manual) Lymphocytes % (Manual) Seg Neutrophils # Seg Neutrophils # Man Lymphocytes # (Manual) D-Dimer ABG pH POC ABG pO2 ABG pO2 ABG HCO3 ABG O2 Saturation ABG Base Excess ABG Oxyhemoglobin ABG Sodium ABG Chloride ABG Glucose Oxyhemoglobin Carboxyhemoglobin Sodium Potassium Chloride Carbon Dioxide BUN Creatinine Glucose POC Glucose 185 H 297 H 183 H Hemoglobin A1c Ferritin AST ALT Alkaline Phosphatase Lactate Dehydrogenase C-Reactive Protein Total Protein Albumin Arterial Blood Glucose Coronavirus (PCR) 05/28/21 05/29/21 05/29/21 21:19 07:34 11:19 WBC MCH MCHC RDW Lymph % (Auto) Lymph # (Auto) Baso # (Auto) Seg Neutrophils % Seg Neuts % (Manual) Lymphocytes % (Manual) Seg Neutrophils # Seg Neutrophils # Man Lymphocytes # (Manual) D-Dimer ABG pH POC ABG pO2 ABG pO2 ABG HCO3 ABG O2 Saturation ABG Base Excess ABG Oxyhemoglobin ABG Sodium ABG Chloride ABG Glucose Oxyhemoglobin Carboxyhemoglobin Sodium Potassium Chloride Carbon Dioxide BUN Creatinine Glucose POC Glucose 274 H 139 H 293 H Hemoglobin A1c Ferritin AST ALT Alkaline Phosphatase Lactate Dehydrogenase C-Reactive Protein Total Protein Albumin Arterial Blood Glucose Coronavirus (PCR) 05/29/21 05/29/21 05/30/21 16:36 22:44 05:55 WBC MCH MCHC RDW 21.3 H Lymph % (Auto) 8.0 L Lymph # (Auto) 0.6 L Baso # (Auto) Seg Neutrophils % 88.6 H Seg Neuts % (Manual) Lymphocytes % (Manual) Seg Neutrophils # Seg Neutrophils # Man Lymphocytes # (Manual) D-Dimer ABG pH POC ABG pO2 ABG pO2 ABG HCO3 ABG O2 Saturation ABG Base Excess ABG Oxyhemoglobin ABG Sodium ABG Chloride ABG Glucose Oxyhemoglobin Carboxyhemoglobin Sodium Potassium Chloride Carbon Dioxide BUN Creatinine Glucose POC Glucose 299 H 160 H Hemoglobin A1c Ferritin AST ALT Alkaline Phosphatase Lactate Dehydrogenase C-Reactive Protein Total Protein Albumin Arterial Blood Glucose Coronavirus (PCR) 05/30/21 05/30/21 05/30/21 05:55 08:04 11:13 WBC MCH MCHC RDW Lymph % (Auto) Lymph # (Auto) Baso # (Auto) Seg Neutrophils % Seg Neuts % (Manual) Lymphocytes % (Manual) Seg Neutrophils # Seg Neutrophils # Man Lymphocytes # (Manual) D-Dimer ABG pH POC ABG pO2 ABG pO2 ABG HCO3 ABG O2 Saturation ABG Base Excess ABG Oxyhemoglobin ABG Sodium ABG Chloride ABG Glucose Oxyhemoglobin Carboxyhemoglobin Sodium Potassium Chloride Carbon Dioxide BUN 19 H Creatinine 0.2 L Glucose 209 H POC Glucose 157 H 275 H Hemoglobin A1c Ferritin AST ALT Alkaline Phosphatase Lactate Dehydrogenase C-Reactive Protein Total Protein Albumin Arterial Blood Glucose Coronavirus (PCR) 05/30/21 05/30/21 05/31/21 17:08 22:12 07:36 WBC MCH MCHC RDW Lymph % (Auto) Lymph # (Auto) Baso # (Auto) Seg Neutrophils % Seg Neuts % (Manual) Lymphocytes % (Manual) Seg Neutrophils # Seg Neutrophils # Man Lymphocytes # (Manual) D-Dimer ABG pH POC ABG pO2 ABG pO2 ABG HCO3 ABG O2 Saturation ABG Base Excess ABG Oxyhemoglobin ABG Sodium ABG Chloride ABG Glucose Oxyhemoglobin Carboxyhemoglobin Sodium Potassium Chloride Carbon Dioxide BUN Creatinine Glucose POC Glucose 154 H 275 H 138 H Hemoglobin A1c Ferritin AST ALT Alkaline Phosphatase Lactate Dehydrogenase C-Reactive Protein Total Protein Albumin Arterial Blood Glucose Coronavirus (PCR) 05/31/21 05/31/21 05/31/21 11:17 16:55 21:25 WBC MCH MCHC RDW Lymph % (Auto) Lymph # (Auto) Baso # (Auto) Seg Neutrophils % Seg Neuts % (Manual) Lymphocytes % (Manual) Seg Neutrophils # Seg Neutrophils # Man Lymphocytes # (Manual) D-Dimer ABG pH POC ABG pO2 ABG pO2 ABG HCO3 ABG O2 Saturation ABG Base Excess ABG Oxyhemoglobin ABG Sodium ABG Chloride ABG Glucose Oxyhemoglobin Carboxyhemoglobin Sodium Potassium Chloride Carbon Dioxide BUN Creatinine Glucose POC Glucose 258 H 215 H 318 H Hemoglobin A1c Ferritin AST ALT Alkaline Phosphatase Lactate Dehydrogenase C-Reactive Protein Total Protein Albumin Arterial Blood Glucose Coronavirus (PCR) 06/01/21 06/01/21 06/01/21 07:23 11:38 16:52 WBC MCH MCHC RDW Lymph % (Auto) Lymph # (Auto) Baso # (Auto) Seg Neutrophils % Seg Neuts % (Manual) Lymphocytes % (Manual) Seg Neutrophils # Seg Neutrophils # Man Lymphocytes # (Manual) D-Dimer ABG pH POC ABG pO2 ABG pO2 ABG HCO3 ABG O2 Saturation ABG Base Excess ABG Oxyhemoglobin ABG Sodium ABG Chloride ABG Glucose Oxyhemoglobin Carboxyhemoglobin Sodium Potassium Chloride Carbon Dioxide BUN Creatinine Glucose POC Glucose 157 H 259 H 150 H Hemoglobin A1c Ferritin AST ALT Alkaline Phosphatase Lactate Dehydrogenase C-Reactive Protein Total Protein Albumin Arterial Blood Glucose Coronavirus (PCR) 06/01/21 06/02/21 06/02/21 23:16 05:34 05:34 WBC MCH MCHC RDW 21.3 H Lymph % (Auto) 9.6 L Lymph # (Auto) 0.6 L Baso # (Auto) Seg Neutrophils % 86.2 H Seg Neuts % (Manual) Lymphocytes % (Manual) Seg Neutrophils # Seg Neutrophils # Man Lymphocytes # (Manual) D-Dimer ABG pH POC ABG pO2 ABG pO2 ABG HCO3 ABG O2 Saturation ABG Base Excess ABG Oxyhemoglobin ABG Sodium ABG Chloride ABG Glucose Oxyhemoglobin Carboxyhemoglobin Sodium 136 L Potassium Chloride Carbon Dioxide BUN Creatinine 0.2 L Glucose 186 H POC Glucose 247 H Hemoglobin A1c Ferritin AST ALT 69 H Alkaline Phosphatase Lactate Dehydrogenase C-Reactive Protein Total Protein 6.1 L Albumin 3.2 L Arterial Blood Glucose Coronavirus (PCR) 06/02/21 06/02/21 06/02/21 11:25 18:23 21:32 WBC MCH MCHC RDW Lymph % (Auto) Lymph # (Auto) Baso # (Auto) Seg Neutrophils % Seg Neuts % (Manual) Lymphocytes % (Manual) Seg Neutrophils # Seg Neutrophils # Man Lymphocytes # (Manual) D-Dimer ABG pH POC ABG pO2 ABG pO2 ABG HCO3 ABG O2 Saturation ABG Base Excess ABG Oxyhemoglobin ABG Sodium ABG Chloride ABG Glucose Oxyhemoglobin Carboxyhemoglobin Sodium Potassium Chloride Carbon Dioxide BUN Creatinine Glucose POC Glucose 157 H 299 H 246 H Hemoglobin A1c Ferritin AST ALT Alkaline Phosphatase Lactate Dehydrogenase C-Reactive Protein Total Protein Albumin Arterial Blood Glucose Coronavirus (PCR) 06/03/21 06/03/21 06/03/21 08:12 12:21 17:31 WBC MCH MCHC RDW Lymph % (Auto) Lymph # (Auto) Baso # (Auto) Seg Neutrophils % Seg Neuts % (Manual) Lymphocytes % (Manual) Seg Neutrophils # Seg Neutrophils # Man Lymphocytes # (Manual) D-Dimer ABG pH POC ABG pO2 ABG pO2 ABG HCO3 ABG O2 Saturation ABG Base Excess ABG Oxyhemoglobin ABG Sodium ABG Chloride ABG Glucose Oxyhemoglobin Carboxyhemoglobin Sodium Potassium Chloride Carbon Dioxide BUN Creatinine Glucose POC Glucose 153 H 302 H 252 H Hemoglobin A1c Ferritin AST ALT Alkaline Phosphatase Lactate Dehydrogenase C-Reactive Protein Total Protein Albumin Arterial Blood Glucose Coronavirus (PCR) 06/03/21 06/04/21 06/04/21 22:08 11:12 16:01 WBC MCH MCHC RDW Lymph % (Auto) Lymph # (Auto) Baso # (Auto) Seg Neutrophils % Seg Neuts % (Manual) Lymphocytes % (Manual) Seg Neutrophils # Seg Neutrophils # Man Lymphocytes # (Manual) D-Dimer ABG pH POC ABG pO2 ABG pO2 ABG HCO3 ABG O2 Saturation ABG Base Excess ABG Oxyhemoglobin ABG Sodium ABG Chloride ABG Glucose Oxyhemoglobin Carboxyhemoglobin Sodium Potassium Chloride Carbon Dioxide BUN Creatinine Glucose POC Glucose 224 H 259 H 238 H Hemoglobin A1c Ferritin AST ALT Alkaline Phosphatase Lactate Dehydrogenase C-Reactive Protein Total Protein Albumin Arterial Blood Glucose Coronavirus (PCR) 06/04/21 06/05/21 06/05/21 21:26 05:26 05:26 WBC MCH MCHC RDW Lymph % (Auto) Lymph # (Auto) Baso # (Auto) Seg Neutrophils % Seg Neuts % (Manual) Lymphocytes % (Manual) Seg Neutrophils # Seg Neutrophils # Man Lymphocytes # (Manual) D-Dimer 488.49 H ABG pH POC ABG pO2 ABG pO2 ABG HCO3 ABG O2 Saturation ABG Base Excess ABG Oxyhemoglobin ABG Sodium ABG Chloride ABG Glucose Oxyhemoglobin Carboxyhemoglobin Sodium Potassium Chloride Carbon Dioxide BUN Creatinine 0.2 L Glucose 198 H POC Glucose 257 H Hemoglobin A1c Ferritin AST ALT Alkaline Phosphatase Lactate Dehydrogenase 475 H C-Reactive Protein Total Protein Albumin Arterial Blood Glucose Coronavirus (PCR) 06/05/21 06/05/21 06/05/21 07:20 08:30 11:00 WBC MCH MCHC RDW Lymph % (Auto) Lymph # (Auto) Baso # (Auto) Seg Neutrophils % Seg Neuts % (Manual) Lymphocytes % (Manual) Seg Neutrophils # Seg Neutrophils # Man Lymphocytes # (Manual) D-Dimer ABG pH POC ABG pO2 ABG pO2 ABG HCO3 ABG O2 Saturation ABG Base Excess ABG Oxyhemoglobin ABG Sodium ABG Chloride ABG Glucose Oxyhemoglobin Carboxyhemoglobin Sodium Potassium Chloride Carbon Dioxide BUN Creatinine Glucose POC Glucose 146 H 246 H Hemoglobin A1c Ferritin AST ALT Alkaline Phosphatase Lactate Dehydrogenase C-Reactive Protein Total Protein Albumin Arterial Blood Glucose Coronavirus (PCR) Positive A 06/05/21 06/05/2121 16:50 22:30 07:57 WBC MCH MCHC RDW Lymph % (Auto) Lymph # (Auto) Baso # (Auto) Seg Neutrophils % Seg Neuts % (Manual) Lymphocytes % (Manual) Seg Neutrophils # Seg Neutrophils # Man Lymphocytes # (Manual) D-Dimer ABG pH POC ABG pO2 ABG pO2 ABG HCO3 ABG O2 Saturation ABG Base Excess ABG Oxyhemoglobin ABG Sodium ABG Chloride ABG Glucose Oxyhemoglobin Carboxyhemoglobin Sodium Potassium Chloride Carbon Dioxide BUN Creatinine Glucose POC Glucose 240 H 174 H 120 H Hemoglobin A1c Ferritin AST ALT Alkaline Phosphatase Lactate Dehydrogenase C-Reactive Protein Total Protein Albumin Arterial Blood Glucose Coronavirus (PCR) 06/06/21 06/06/21 06/06/21 11:14 16:50 21:11 WBC MCH MCHC RDW Lymph % (Auto) Lymph # (Auto) Baso # (Auto) Seg Neutrophils % Seg Neuts % (Manual) Lymphocytes % (Manual) Seg Neutrophils # Seg Neutrophils # Man Lymphocytes # (Manual) D-Dimer ABG pH POC ABG pO2 ABG pO2 ABG HCO3 ABG O2 Saturation ABG Base Excess ABG Oxyhemoglobin ABG Sodium ABG Chloride ABG Glucose Oxyhemoglobin Carboxyhemoglobin Sodium Potassium Chloride Carbon Dioxide BUN Creatinine Glucose POC Glucose 267 H 218 H 124 H Hemoglobin A1c Ferritin AST ALT Alkaline Phosphatase Lactate Dehydrogenase C-Reactive Protein Total Protein Albumin Arterial Blood Glucose Coronavirus (PCR) 06/07/21 06/07/21 06/08/21 11:58 15:59 07:59 WBC MCH MCHC RDW Lymph % (Auto) Lymph # (Auto) Baso # (Auto) Seg Neutrophils % Seg Neuts % (Manual) Lymphocytes % (Manual) Seg Neutrophils # Seg Neutrophils # Man Lymphocytes # (Manual) D-Dimer ABG pH POC ABG pO2 ABG pO2 ABG HCO3 ABG O2 Saturation ABG Base Excess ABG Oxyhemoglobin ABG Sodium ABG Chloride ABG Glucose Oxyhemoglobin Carboxyhemoglobin Sodium Potassium Chloride Carbon Dioxide BUN Creatinine Glucose POC Glucose 219 H 208 H 192 H Hemoglobin A1c Ferritin AST ALT Alkaline Phosphatase Lactate Dehydrogenase C-Reactive Protein Total Protein Albumin Arterial Blood Glucose Coronavirus (PCR) 06/08/21 06/08/21 06/09/21 11:26 23:28 07:33 WBC MCH MCHC RDW Lymph % (Auto) Lymph # (Auto) Baso # (Auto) Seg Neutrophils % Seg Neuts % (Manual) Lymphocytes % (Manual) Seg Neutrophils # Seg Neutrophils # Man Lymphocytes # (Manual) D-Dimer ABG pH POC ABG pO2 ABG pO2 ABG HCO3 ABG O2 Saturation ABG Base Excess ABG Oxyhemoglobin ABG Sodium ABG Chloride ABG Glucose Oxyhemoglobin Carboxyhemoglobin Sodium Potassium Chloride Carbon Dioxide BUN Creatinine Glucose POC Glucose 307 H 138 H 145 H Hemoglobin A1c Ferritin AST ALT Alkaline Phosphatase Lactate Dehydrogenase C-Reactive Protein Total Protein Albumin Arterial Blood Glucose Coronavirus (PCR) 06/09/21 06/09/21 06/09/21 11:01 15:47 21:43 WBC MCH MCHC RDW Lymph % (Auto) Lymph # (Auto) Baso # (Auto) Seg Neutrophils % Seg Neuts % (Manual) Lymphocytes % (Manual) Seg Neutrophils # Seg Neutrophils # Man Lymphocytes # (Manual) D-Dimer ABG pH POC ABG pO2 ABG pO2 ABG HCO3 ABG O2 Saturation ABG Base Excess ABG Oxyhemoglobin ABG Sodium ABG Chloride ABG Glucose Oxyhemoglobin Carboxyhemoglobin Sodium Potassium Chloride Carbon Dioxide BUN Creatinine Glucose POC Glucose 266 H 305 H 223 H Hemoglobin A1c Ferritin AST ALT Alkaline Phosphatase Lactate Dehydrogenase C-Reactive Protein Total Protein Albumin Arterial Blood Glucose Coronavirus (PCR) 06/10/21 06/10/21 06/10/21 08:27 12:10 17:45 WBC MCH MCHC RDW Lymph % (Auto) Lymph # (Auto) Baso # (Auto) Seg Neutrophils % Seg Neuts % (Manual) Lymphocytes % (Manual) Seg Neutrophils # Seg Neutrophils # Man Lymphocytes # (Manual) D-Dimer ABG pH POC ABG pO2 ABG pO2 ABG HCO3 ABG O2 Saturation ABG Base Excess ABG Oxyhemoglobin ABG Sodium ABG Chloride ABG Glucose Oxyhemoglobin Carboxyhemoglobin Sodium Potassium Chloride Carbon Dioxide BUN Creatinine Glucose POC Glucose 174 H 306 H 210 H Hemoglobin A1c Ferritin AST ALT Alkaline Phosphatase Lactate Dehydrogenase C-Reactive Protein Total Protein Albumin Arterial Blood Glucose Coronavirus (PCR) 06/10/21 06/11/21 06/11/21 21:45 09:38 09:38 WBC MCH MCHC RDW 20.9 H Lymph % (Auto) Lymph # (Auto) Baso # (Auto) Seg Neutrophils % Seg Neuts % (Manual) Lymphocytes % (Manual) Seg Neutrophils # Seg Neutrophils # Man Lymphocytes # (Manual) D-Dimer ABG pH POC ABG pO2 ABG pO2 ABG HCO3 ABG O2 Saturation ABG Base Excess ABG Oxyhemoglobin ABG Sodium ABG Chloride ABG Glucose Oxyhemoglobin Carboxyhemoglobin Sodium 135 L Potassium Chloride 90.8 L Carbon Dioxide 36 H BUN 29 H Creatinine 0.2 L Glucose 258 H POC Glucose 262 H Hemoglobin A1c Ferritin AST ALT Alkaline Phosphatase Lactate Dehydrogenase C-Reactive Protein Total Protein Albumin Arterial Blood Glucose Coronavirus (PCR) 06/11/21 06/11/21 06/11/21 11:20 15:49 22:57 WBC MCH MCHC RDW Lymph % (Auto) Lymph # (Auto) Baso # (Auto) Seg Neutrophils % Seg Neuts % (Manual) Lymphocytes % (Manual) Seg Neutrophils # Seg Neutrophils # Man Lymphocytes # (Manual) D-Dimer ABG pH POC ABG pO2 ABG pO2 ABG HCO3 ABG O2 Saturation ABG Base Excess ABG Oxyhemoglobin ABG Sodium ABG Chloride ABG Glucose Oxyhemoglobin Carboxyhemoglobin Sodium Potassium Chloride Carbon Dioxide BUN Creatinine Glucose POC Glucose 269 H 206 H 211 H Hemoglobin A1c Ferritin AST ALT Alkaline Phosphatase Lactate Dehydrogenase C-Reactive Protein Total Protein Albumin Arterial Blood Glucose Coronavirus (PCR) 06/12/21 06/12/21 06/12/21 08:07 11:24 18:08 WBC MCH MCHC RDW Lymph % (Auto) Lymph # (Auto) Baso # (Auto) Seg Neutrophils % Seg Neuts % (Manual) Lymphocytes % (Manual) Seg Neutrophils # Seg Neutrophils # Man Lymphocytes # (Manual) D-Dimer ABG pH POC ABG pO2 ABG pO2 ABG HCO3 ABG O2 Saturation ABG Base Excess ABG Oxyhemoglobin ABG Sodium ABG Chloride ABG Glucose Oxyhemoglobin Carboxyhemoglobin Sodium Potassium Chloride Carbon Dioxide BUN Creatinine Glucose POC Glucose 149 H 270 H 166 H Hemoglobin A1c Ferritin AST ALT Alkaline Phosphatase Lactate Dehydrogenase C-Reactive Protein Total Protein Albumin Arterial Blood Glucose Coronavirus (PCR) 06/12/21 06/13/21 06/13/21 20:22 07:50 11:18 WBC MCH MCHC RDW Lymph % (Auto) Lymph # (Auto) Baso # (Auto) Seg Neutrophils % Seg Neuts % (Manual) Lymphocytes % (Manual) Seg Neutrophils # Seg Neutrophils # Man Lymphocytes # (Manual) D-Dimer ABG pH POC ABG pO2 ABG pO2 ABG HCO3 ABG O2 Saturation ABG Base Excess ABG Oxyhemoglobin ABG Sodium ABG Chloride ABG Glucose Oxyhemoglobin Carboxyhemoglobin Sodium Potassium Chloride Carbon Dioxide BUN Creatinine Glucose POC Glucose 155 H 163 H 293 H Hemoglobin A1c Ferritin AST ALT Alkaline Phosphatase Lactate Dehydrogenase C-Reactive Protein Total Protein Albumin Arterial Blood Glucose Coronavirus (PCR) 06/13/21 06/13/21 06/14/21 16:41 21:00 07:41 WBC MCH MCHC RDW Lymph % (Auto) Lymph # (Auto) Baso # (Auto) Seg Neutrophils % Seg Neuts % (Manual) Lymphocytes % (Manual) Seg Neutrophils # Seg Neutrophils # Man Lymphocytes # (Manual) D-Dimer ABG pH POC ABG pO2 ABG pO2 ABG HCO3 ABG O2 Saturation ABG Base Excess ABG Oxyhemoglobin ABG Sodium ABG Chloride ABG Glucose Oxyhemoglobin Carboxyhemoglobin Sodium Potassium Chloride Carbon Dioxide BUN Creatinine Glucose POC Glucose 232 H 183 H 52 L Hemoglobin A1c Ferritin AST ALT Alkaline Phosphatase Lactate Dehydrogenase C-Reactive Protein Total Protein Albumin Arterial Blood Glucose Coronavirus (PCR) 06/14/21 06/14/21 06/14/21 11:44 17:44 21:44 WBC MCH MCHC RDW Lymph % (Auto) Lymph # (Auto) Baso # (Auto) Seg Neutrophils % Seg Neuts % (Manual) Lymphocytes % (Manual) Seg Neutrophils # Seg Neutrophils # Man Lymphocytes # (Manual) D-Dimer ABG pH POC ABG pO2 ABG pO2 ABG HCO3 ABG O2 Saturation ABG Base Excess ABG Oxyhemoglobin ABG Sodium ABG Chloride ABG Glucose Oxyhemoglobin Carboxyhemoglobin Sodium Potassium Chloride Carbon Dioxide BUN Creatinine Glucose POC Glucose 205 H 293 H 288 H Hemoglobin A1c Ferritin AST ALT Alkaline Phosphatase Lactate Dehydrogenase C-Reactive Protein Total Protein Albumin Arterial Blood Glucose Coronavirus (PCR) 06/15/21 06/15/21 06/15/21 08:00 08:00 11:40 WBC MCH 33 H MCHC 35 H RDW 20.3 H Lymph % (Auto) Lymph # (Auto) Baso # (Auto) Seg Neutrophils % Seg Neuts % (Manual) Lymphocytes % (Manual) Seg Neutrophils # Seg Neutrophils # Man Lymphocytes # (Manual) D-Dimer ABG pH POC ABG pO2 ABG pO2 ABG HCO3 ABG O2 Saturation ABG Base Excess ABG Oxyhemoglobin ABG Sodium ABG Chloride ABG Glucose Oxyhemoglobin Carboxyhemoglobin Sodium Potassium 3.2 L Chloride 95.3 L Carbon Dioxide 32 H BUN 23 H Creatinine 0.2 L Glucose 103 H POC Glucose 204 H Hemoglobin A1c Ferritin AST ALT Alkaline Phosphatase Lactate Dehydrogenase C-Reactive Protein Total Protein Albumin Arterial Blood Glucose Coronavirus (PCR) 06/15/21 06/15/21 06/16/21 16:17 22:00 11:43 WBC MCH MCHC RDW Lymph % (Auto) Lymph # (Auto) Baso # (Auto) Seg Neutrophils % Seg Neuts % (Manual) Lymphocytes % (Manual) Seg Neutrophils # Seg Neutrophils # Man Lymphocytes # (Manual) D-Dimer ABG pH POC ABG pO2 ABG pO2 ABG HCO3 ABG O2 Saturation ABG Base Excess ABG Oxyhemoglobin ABG Sodium ABG Chloride ABG Glucose Oxyhemoglobin Carboxyhemoglobin Sodium Potassium Chloride Carbon Dioxide BUN Creatinine Glucose POC Glucose 295 H 233 H 201 H Hemoglobin A1c Ferritin AST ALT Alkaline Phosphatase Lactate Dehydrogenase C-Reactive Protein Total Protein Albumin Arterial Blood Glucose Coronavirus (PCR) 06/16/21 06/16/21 06/17/21 17:21 21:27 07:12 WBC MCH MCHC RDW Lymph % (Auto) Lymph # (Auto) Baso # (Auto) Seg Neutrophils % Seg Neuts % (Manual) Lymphocytes % (Manual) Seg Neutrophils # Seg Neutrophils # Man Lymphocytes # (Manual) D-Dimer ABG pH POC ABG pO2 ABG pO2 ABG HCO3 ABG O2 Saturation ABG Base Excess ABG Oxyhemoglobin ABG Sodium ABG Chloride ABG Glucose Oxyhemoglobin Carboxyhemoglobin Sodium Potassium Chloride Carbon Dioxide BUN Creatinine Glucose POC Glucose 299 H 290 H 67 L Hemoglobin A1c Ferritin AST ALT Alkaline Phosphatase Lactate Dehydrogenase C-Reactive Protein Total Protein Albumin Arterial Blood Glucose Coronavirus (PCR) 06/17/21 06/17/21 06/17/21 11:53 17:02 22:25 WBC MCH MCHC RDW Lymph % (Auto) Lymph # (Auto) Baso # (Auto) Seg Neutrophils % Seg Neuts % (Manual) Lymphocytes % (Manual) Seg Neutrophils # Seg Neutrophils # Man Lymphocytes # (Manual) D-Dimer ABG pH POC ABG pO2 ABG pO2 ABG HCO3 ABG O2 Saturation ABG Base Excess ABG Oxyhemoglobin ABG Sodium ABG Chloride ABG Glucose Oxyhemoglobin Carboxyhemoglobin Sodium Potassium Chloride Carbon Dioxide BUN Creatinine Glucose POC Glucose 199 H 362 H 235 H Hemoglobin A1c Ferritin AST ALT Alkaline Phosphatase Lactate Dehydrogenase C-Reactive Protein Total Protein Albumin Arterial Blood Glucose Coronavirus (PCR) 06/18/21 06/18/21 06/18/21 08:00 11:48 16:40 WBC MCH MCHC RDW Lymph % (Auto) Lymph # (Auto) Baso # (Auto) Seg Neutrophils % Seg Neuts % (Manual) Lymphocytes % (Manual) Seg Neutrophils # Seg Neutrophils # Man Lymphocytes # (Manual) D-Dimer ABG pH POC ABG pO2 ABG pO2 ABG HCO3 ABG O2 Saturation ABG Base Excess ABG Oxyhemoglobin ABG Sodium ABG Chloride ABG Glucose Oxyhemoglobin Carboxyhemoglobin Sodium Potassium Chloride Carbon Dioxide BUN Creatinine Glucose POC Glucose 62 L 211 H 305 H Hemoglobin A1c Ferritin AST ALT Alkaline Phosphatase Lactate Dehydrogenase C-Reactive Protein Total Protein Albumin Arterial Blood Glucose Coronavirus (PCR) 06/18/21 06/19/21 06/19/21 21:26 07:27 11:32 WBC MCH MCHC RDW Lymph % (Auto) Lymph # (Auto) Baso # (Auto) Seg Neutrophils % Seg Neuts % (Manual) Lymphocytes % (Manual) Seg Neutrophils # Seg Neutrophils # Man Lymphocytes # (Manual) D-Dimer ABG pH POC ABG pO2 ABG pO2 ABG HCO3 ABG O2 Saturation ABG Base Excess ABG Oxyhemoglobin ABG Sodium ABG Chloride ABG Glucose Oxyhemoglobin Carboxyhemoglobin Sodium Potassium Chloride Carbon Dioxide BUN Creatinine Glucose POC Glucose 149 H 60 L 208 H Hemoglobin A1c Ferritin AST ALT Alkaline Phosphatase Lactate Dehydrogenase C-Reactive Protein Total Protein Albumin Arterial Blood Glucose Coronavirus (PCR) 06/19/21 06/19/21 06/20/21 16:06 22:28 07:48 WBC MCH MCHC RDW Lymph % (Auto) Lymph # (Auto) Baso # (Auto) Seg Neutrophils % Seg Neuts % (Manual) Lymphocytes % (Manual) Seg Neutrophils # Seg Neutrophils # Man Lymphocytes # (Manual) D-Dimer ABG pH POC ABG pO2 ABG pO2 ABG HCO3 ABG O2 Saturation ABG Base Excess ABG Oxyhemoglobin ABG Sodium ABG Chloride ABG Glucose Oxyhemoglobin Carboxyhemoglobin Sodium Potassium Chloride Carbon Dioxide BUN Creatinine Glucose POC Glucose 266 H 166 H 58 L Hemoglobin A1c Ferritin AST ALT Alkaline Phosphatase Lactate Dehydrogenase C-Reactive Protein Total Protein Albumin Arterial Blood Glucose Coronavirus (PCR) 06/20/21 06/20/21 06/20/21 09:09 11:04 16:01 WBC MCH MCHC RDW Lymph % (Auto) Lymph # (Auto) Baso # (Auto) Seg Neutrophils % Seg Neuts % (Manual) Lymphocytes % (Manual) Seg Neutrophils # Seg Neutrophils # Man Lymphocytes # (Manual) D-Dimer ABG pH POC ABG pO2 ABG pO2 ABG HCO3 ABG O2 Saturation ABG Base Excess ABG Oxyhemoglobin ABG Sodium ABG Chloride ABG Glucose Oxyhemoglobin Carboxyhemoglobin Sodium Potassium Chloride Carbon Dioxide BUN Creatinine Glucose POC Glucose 146 H 225 H 330 H Hemoglobin A1c Ferritin AST ALT Alkaline Phosphatase Lactate Dehydrogenase C-Reactive Protein Total Protein Albumin Arterial Blood Glucose Coronavirus (PCR) 06/20/21 06/21/21 06/21/21 20:46 06:45 06:45 WBC MCH MCHC RDW 20.0 H Lymph % (Auto) Lymph # (Auto) Baso # (Auto) Seg Neutrophils % Seg Neuts % (Manual) Lymphocytes % (Manual) Seg Neutrophils # Seg Neutrophils # Man Lymphocytes # (Manual) D-Dimer ABG pH POC ABG pO2 ABG pO2 ABG HCO3 ABG O2 Saturation ABG Base Excess ABG Oxyhemoglobin ABG Sodium ABG Chloride ABG Glucose Oxyhemoglobin Carboxyhemoglobin Sodium Potassium 2.9 L* Chloride 95.0 L Carbon Dioxide 31 H BUN 23 H Creatinine 0.2 L Glucose 45 L POC Glucose 215 H Hemoglobin A1c Ferritin AST ALT Alkaline Phosphatase Lactate Dehydrogenase C-Reactive Protein Total Protein Albumin Arterial Blood Glucose Coronavirus (PCR) 06/21/21 06/21/21 06/21/21 07:38 09:06 12:40 WBC MCH MCHC RDW Lymph % (Auto) Lymph # (Auto) Baso # (Auto) Seg Neutrophils % Seg Neuts % (Manual) Lymphocytes % (Manual) Seg Neutrophils # Seg Neutrophils # Man Lymphocytes # (Manual) D-Dimer ABG pH POC ABG pO2 ABG pO2 ABG HCO3 ABG O2 Saturation ABG Base Excess ABG Oxyhemoglobin ABG Sodium ABG Chloride ABG Glucose Oxyhemoglobin Carboxyhemoglobin Sodium Potassium Chloride Carbon Dioxide BUN Creatinine Glucose POC Glucose 50 L 196 H 205 H Hemoglobin A1c Ferritin AST ALT Alkaline Phosphatase Lactate Dehydrogenase C-Reactive Protein Total Protein Albumin Arterial Blood Glucose Coronavirus (PCR) 06/21/21 06/22/21 06/22/21 21:36 06:25 07:15 WBC MCH MCHC RDW Lymph % (Auto) Lymph # (Auto) Baso # (Auto) Seg Neutrophils % Seg Neuts % (Manual) Lymphocytes % (Manual) Seg Neutrophils # Seg Neutrophils # Man Lymphocytes # (Manual) D-Dimer ABG pH POC ABG pO2 ABG pO2 ABG HCO3 ABG O2 Saturation ABG Base Excess ABG Oxyhemoglobin ABG Sodium ABG Chloride ABG Glucose Oxyhemoglobin Carboxyhemoglobin Sodium Potassium Chloride Carbon Dioxide BUN 20 H Creatinine 0.2 L Glucose POC Glucose 245 H 66 L Hemoglobin A1c Ferritin AST ALT Alkaline Phosphatase Lactate Dehydrogenase C-Reactive Protein Total Protein Albumin Arterial Blood Glucose Coronavirus (PCR) 06/22/21 06/22/21 06/22/21 11:03 16:07 22:03 WBC MCH MCHC RDW Lymph % (Auto) Lymph # (Auto) Baso # (Auto) Seg Neutrophils % Seg Neuts % (Manual) Lymphocytes % (Manual) Seg Neutrophils # Seg Neutrophils # Man Lymphocytes # (Manual) D-Dimer ABG pH POC ABG pO2 ABG pO2 ABG HCO3 ABG O2 Saturation ABG Base Excess ABG Oxyhemoglobin ABG Sodium ABG Chloride ABG Glucose Oxyhemoglobin Carboxyhemoglobin Sodium Potassium Chloride Carbon Dioxide BUN Creatinine Glucose POC Glucose 184 H 326 H 138 H Hemoglobin A1c Ferritin AST ALT Alkaline Phosphatase Lactate Dehydrogenase C-Reactive Protein Total Protein Albumin Arterial Blood Glucose Coronavirus (PCR) 06/23/21 06/23/21 06/23/21 07:19 10:34 16:35 WBC MCH MCHC RDW Lymph % (Auto) Lymph # (Auto) Baso # (Auto) Seg Neutrophils % Seg Neuts % (Manual) Lymphocytes % (Manual) Seg Neutrophils # Seg Neutrophils # Man Lymphocytes # (Manual) D-Dimer ABG pH POC ABG pO2 ABG pO2 ABG HCO3 ABG O2 Saturation ABG Base Excess ABG Oxyhemoglobin ABG Sodium ABG Chloride ABG Glucose Oxyhemoglobin Carboxyhemoglobin Sodium Potassium Chloride Carbon Dioxide BUN Creatinine Glucose POC Glucose 69 L 218 H 326 H Hemoglobin A1c Ferritin AST ALT Alkaline Phosphatase Lactate Dehydrogenase C-Reactive Protein Total Protein Albumin Arterial Blood Glucose Coronavirus (PCR) 06/23/21 06/24/21 06/24/21 22:44 11:41 16:54 WBC MCH MCHC RDW Lymph % (Auto) Lymph # (Auto) Baso # (Auto) Seg Neutrophils % Seg Neuts % (Manual) Lymphocytes % (Manual) Seg Neutrophils # Seg Neutrophils # Man Lymphocytes # (Manual) D-Dimer ABG pH POC ABG pO2 ABG pO2 ABG HCO3 ABG O2 Saturation ABG Base Excess ABG Oxyhemoglobin ABG Sodium ABG Chloride ABG Glucose Oxyhemoglobin Carboxyhemoglobin Sodium Potassium Chloride Carbon Dioxide BUN Creatinine Glucose POC Glucose 252 H 217 H 357 H Hemoglobin A1c Ferritin AST ALT Alkaline Phosphatase Lactate Dehydrogenase C-Reactive Protein Total Protein Albumin Arterial Blood Glucose Coronavirus (PCR) 06/24/21 06/25/21 06/25/21 20:40 11:51 16:47 WBC MCH MCHC RDW Lymph % (Auto) Lymph # (Auto) Baso # (Auto) Seg Neutrophils % Seg Neuts % (Manual) Lymphocytes % (Manual) Seg Neutrophils # Seg Neutrophils # Man Lymphocytes # (Manual) D-Dimer ABG pH POC ABG pO2 ABG pO2 ABG HCO3 ABG O2 Saturation ABG Base Excess ABG Oxyhemoglobin ABG Sodium ABG Chloride ABG Glucose Oxyhemoglobin Carboxyhemoglobin Sodium Potassium Chloride Carbon Dioxide BUN Creatinine Glucose POC Glucose 239 H 182 H 229 H Hemoglobin A1c Ferritin AST ALT Alkaline Phosphatase Lactate Dehydrogenase C-Reactive Protein Total Protein Albumin Arterial Blood Glucose Coronavirus (PCR) 06/25/21 06/26/21 06/26/21 22:27 07:20 12:19 WBC MCH MCHC RDW Lymph % (Auto) Lymph # (Auto) Baso # (Auto) Seg Neutrophils % Seg Neuts % (Manual) Lymphocytes % (Manual) Seg Neutrophils # Seg Neutrophils # Man Lymphocytes # (Manual) D-Dimer ABG pH POC ABG pO2 ABG pO2 ABG HCO3 ABG O2 Saturation ABG Base Excess ABG Oxyhemoglobin ABG Sodium ABG Chloride ABG Glucose Oxyhemoglobin Carboxyhemoglobin Sodium Potassium 3.2 L D Chloride Carbon Dioxide BUN 20 H Creatinine 0.3 L Glucose POC Glucose 209 H 273 H Hemoglobin A1c Ferritin AST ALT 77 H Alkaline Phosphatase Lactate Dehydrogenase C-Reactive Protein Total Protein Albumin 3.3 L Arterial Blood Glucose Coronavirus (PCR) 06/26/21 06/26/21 06/27/21 16:52 20:55 07:14 WBC MCH MCHC RDW Lymph % (Auto) Lymph # (Auto) Baso # (Auto) Seg Neutrophils % Seg Neuts % (Manual) Lymphocytes % (Manual) Seg Neutrophils # Seg Neutrophils # Man Lymphocytes # (Manual) D-Dimer ABG pH POC ABG pO2 ABG pO2 ABG HCO3 ABG O2 Saturation ABG Base Excess ABG Oxyhemoglobin ABG Sodium ABG Chloride ABG Glucose Oxyhemoglobin Carboxyhemoglobin Sodium Potassium Chloride Carbon Dioxide 31 H BUN 19 H Creatinine 0.2 L Glucose 112 H POC Glucose 326 H 220 H Hemoglobin A1c Ferritin AST ALT Alkaline Phosphatase Lactate Dehydrogenase C-Reactive Protein Total Protein Albumin Arterial Blood Glucose Coronavirus (PCR) 06/27/21 06/27/21 06/27/21 07:29 10:54 15:49 WBC MCH MCHC RDW Lymph % (Auto) Lymph # (Auto) Baso # (Auto) Seg Neutrophils % Seg Neuts % (Manual) Lymphocytes % (Manual) Seg Neutrophils # Seg Neutrophils # Man Lymphocytes # (Manual) D-Dimer ABG pH POC ABG pO2 ABG pO2 ABG HCO3 ABG O2 Saturation ABG Base Excess ABG Oxyhemoglobin ABG Sodium ABG Chloride ABG Glucose Oxyhemoglobin Carboxyhemoglobin Sodium Potassium Chloride Carbon Dioxide BUN Creatinine Glucose POC Glucose 115 H 228 H 240 H Hemoglobin A1c Ferritin AST ALT Alkaline Phosphatase Lactate Dehydrogenase C-Reactive Protein Total Protein Albumin Arterial Blood Glucose Coronavirus (PCR) 06/28/21 06/28/21 06/28/21 05:43 05:43 07:13 WBC MCH 33 H MCHC RDW 19.8 H Lymph % (Auto) Lymph # (Auto) Baso # (Auto) Seg Neutrophils % Seg Neuts % (Manual) Lymphocytes % (Manual) Seg Neutrophils # Seg Neutrophils # Man Lymphocytes # (Manual) D-Dimer ABG pH POC ABG pO2 ABG pO2 ABG HCO3 ABG O2 Saturation ABG Base Excess ABG Oxyhemoglobin ABG Sodium ABG Chloride ABG Glucose Oxyhemoglobin Carboxyhemoglobin Sodium Potassium 3.3 L Chloride Carbon Dioxide BUN 22 H Creatinine 0.2 L Glucose POC Glucose 69 L Hemoglobin A1c Ferritin AST ALT 63 H Alkaline Phosphatase Lactate Dehydrogenase C-Reactive Protein Total Protein Albumin 3.3 L Arterial Blood Glucose Coronavirus (PCR) 06/28/21 06/28/21 06/28/21 12:18 15:37 21:01 WBC MCH MCHC RDW Lymph % (Auto) Lymph # (Auto) Baso # (Auto) Seg Neutrophils % Seg Neuts % (Manual) Lymphocytes % (Manual) Seg Neutrophils # Seg Neutrophils # Man Lymphocytes # (Manual) D-Dimer ABG pH POC ABG pO2 ABG pO2 ABG HCO3 ABG O2 Saturation ABG Base Excess ABG Oxyhemoglobin ABG Sodium ABG Chloride ABG Glucose Oxyhemoglobin Carboxyhemoglobin Sodium Potassium Chloride Carbon Dioxide BUN Creatinine Glucose POC Glucose 154 H 201 H 191 H Hemoglobin A1c Ferritin AST ALT Alkaline Phosphatase Lactate Dehydrogenase C-Reactive Protein Total Protein Albumin Arterial Blood Glucose Coronavirus (PCR) 06/29/21 06/29/21 06/29/21 11:55 15:47 21:06 WBC MCH MCHC RDW Lymph % (Auto) Lymph # (Auto) Baso # (Auto) Seg Neutrophils % Seg Neuts % (Manual) Lymphocytes % (Manual) Seg Neutrophils # Seg Neutrophils # Man Lymphocytes # (Manual) D-Dimer ABG pH POC ABG pO2 ABG pO2 ABG HCO3 ABG O2 Saturation ABG Base Excess ABG Oxyhemoglobin ABG Sodium ABG Chloride ABG Glucose Oxyhemoglobin Carboxyhemoglobin Sodium Potassium Chloride Carbon Dioxide BUN Creatinine Glucose POC Glucose 238 H 249 H 155 H Hemoglobin A1c Ferritin AST ALT Alkaline Phosphatase Lactate Dehydrogenase C-Reactive Protein Total Protein Albumin Arterial Blood Glucose Coronavirus (PCR) 06/30/21 06/30/21 06/30/21 04:00 07:50 11:50 WBC MCH MCHC RDW Lymph % (Auto) Lymph # (Auto) Baso # (Auto) Seg Neutrophils % Seg Neuts % (Manual) Lymphocytes % (Manual) Seg Neutrophils # Seg Neutrophils # Man Lymphocytes # (Manual) D-Dimer ABG pH POC ABG pO2 ABG pO2 ABG HCO3 ABG O2 Saturation ABG Base Excess ABG Oxyhemoglobin ABG Sodium ABG Chloride ABG Glucose Oxyhemoglobin Carboxyhemoglobin Sodium Potassium 3.5 L Chloride Carbon Dioxide BUN 18 H Creatinine 0.3 L Glucose 111 H POC Glucose 117 H 250 H Hemoglobin A1c Ferritin AST ALT Alkaline Phosphatase Lactate Dehydrogenase C-Reactive Protein Total Protein Albumin Arterial Blood Glucose Coronavirus (PCR) 06/30/21 06/30/21 07/01/21 16:05 21:02 07:26 WBC MCH MCHC RDW Lymph % (Auto) Lymph # (Auto) Baso # (Auto) Seg Neutrophils % Seg Neuts % (Manual) Lymphocytes % (Manual) Seg Neutrophils # Seg Neutrophils # Man Lymphocytes # (Manual) D-Dimer ABG pH POC ABG pO2 ABG pO2 ABG HCO3 ABG O2 Saturation ABG Base Excess ABG Oxyhemoglobin ABG Sodium ABG Chloride ABG Glucose Oxyhemoglobin Carboxyhemoglobin Sodium Potassium Chloride Carbon Dioxide BUN Creatinine Glucose POC Glucose 250 H 217 H 111 H Hemoglobin A1c Ferritin AST ALT Alkaline Phosphatase Lactate Dehydrogenase C-Reactive Protein Total Protein Albumin Arterial Blood Glucose Coronavirus (PCR) 07/01/21 07/01/21 07/01/21 11:06 15:48 21:31 WBC MCH MCHC RDW Lymph % (Auto) Lymph # (Auto) Baso # (Auto) Seg Neutrophils % Seg Neuts % (Manual) Lymphocytes % (Manual) Seg Neutrophils # Seg Neutrophils # Man Lymphocytes # (Manual) D-Dimer ABG pH POC ABG pO2 ABG pO2 ABG HCO3 ABG O2 Saturation ABG Base Excess ABG Oxyhemoglobin ABG Sodium ABG Chloride ABG Glucose Oxyhemoglobin Carboxyhemoglobin Sodium Potassium Chloride Carbon Dioxide BUN Creatinine Glucose POC Glucose 229 H 239 H 199 H Hemoglobin A1c Ferritin AST ALT Alkaline Phosphatase Lactate Dehydrogenase C-Reactive Protein Total Protein Albumin Arterial Blood Glucose Coronavirus (PCR) 07/02/21 07/02/21 07/02/21 11:50 16:44 21:49 WBC MCH MCHC RDW Lymph % (Auto) Lymph # (Auto) Baso # (Auto) Seg Neutrophils % Seg Neuts % (Manual) Lymphocytes % (Manual) Seg Neutrophils # Seg Neutrophils # Man Lymphocytes # (Manual) D-Dimer ABG pH POC ABG pO2 ABG pO2 ABG HCO3 ABG O2 Saturation ABG Base Excess ABG Oxyhemoglobin ABG Sodium ABG Chloride ABG Glucose Oxyhemoglobin Carboxyhemoglobin Sodium Potassium Chloride Carbon Dioxide BUN Creatinine Glucose POC Glucose 230 H 203 H 197 H Hemoglobin A1c Ferritin AST ALT Alkaline Phosphatase Lactate Dehydrogenase C-Reactive Protein Total Protein Albumin Arterial Blood Glucose Coronavirus (PCR) 07/03/21 07/03/21 07/03/21 05:46 05:46 11:59 WBC MCH MCHC RDW 19.6 H Lymph % (Auto) Lymph # (Auto) Baso # (Auto) Seg Neutrophils % Seg Neuts % (Manual) Lymphocytes % (Manual) Seg Neutrophils # Seg Neutrophils # Man Lymphocytes # (Manual) D-Dimer ABG pH POC ABG pO2 ABG pO2 ABG HCO3 ABG O2 Saturation ABG Base Excess ABG Oxyhemoglobin ABG Sodium ABG Chloride ABG Glucose Oxyhemoglobin Carboxyhemoglobin Sodium Potassium 3.2 L Chloride Carbon Dioxide BUN Creatinine 0.3 L Glucose POC Glucose 145 H Hemoglobin A1c Ferritin AST ALT Alkaline Phosphatase Lactate Dehydrogenase C-Reactive Protein Total Protein Albumin Arterial Blood Glucose Coronavirus (PCR) 07/03/21 07/03/21 07/04/21 16:40 22:00 06:35 WBC MCH MCHC RDW Lymph % (Auto) Lymph # (Auto) Baso # (Auto) Seg Neutrophils % Seg Neuts % (Manual) Lymphocytes % (Manual) Seg Neutrophils # Seg Neutrophils # Man Lymphocytes # (Manual) D-Dimer ABG pH POC ABG pO2 ABG pO2 ABG HCO3 ABG O2 Saturation ABG Base Excess ABG Oxyhemoglobin ABG Sodium ABG Chloride ABG Glucose Oxyhemoglobin Carboxyhemoglobin Sodium Potassium Chloride Carbon Dioxide BUN Creatinine 0.3 L Glucose 118 H POC Glucose 176 H 127 H Hemoglobin A1c Ferritin AST ALT Alkaline Phosphatase Lactate Dehydrogenase C-Reactive Protein Total Protein Albumin Arterial Blood Glucose Coronavirus (PCR) 07/04/21 07/04/21 07/05/21 12:30 16:38 08:37 WBC MCH MCHC RDW Lymph % (Auto) Lymph # (Auto) Baso # (Auto) Seg Neutrophils % Seg Neuts % (Manual) Lymphocytes % (Manual) Seg Neutrophils # Seg Neutrophils # Man Lymphocytes # (Manual) D-Dimer ABG pH POC ABG pO2 ABG pO2 ABG HCO3 ABG O2 Saturation ABG Base Excess ABG Oxyhemoglobin ABG Sodium ABG Chloride ABG Glucose Oxyhemoglobin Carboxyhemoglobin Sodium Potassium Chloride Carbon Dioxide BUN Creatinine Glucose POC Glucose 162 H 205 H 115 H Hemoglobin A1c Ferritin AST ALT Alkaline Phosphatase Lactate Dehydrogenase C-Reactive Protein Total Protein Albumin Arterial Blood Glucose Coronavirus (PCR)
--- NOTE | 2021-07-05 12:18 | Progress Note ---
Assessment and Plan Assessment and plan: Assessment and plan: Admit 04/16 from ER 50 YO Female with GERD, Obesity, HLD presents to ED for evaluation. Patient reports "I cannot breathe". Patient states that she has experienced subjective fever, shortness of breath, malaise, body aches, dry cough, and shortness of emily ath over the past 1 week with progressively worsening symptoms over the same timeframe. EMS was notified and upon arrival the patient was found to be in distress and subsequent transported to [facility] for further care and evaluation of the aforementioned symptoms. The patient was seen and evaluated in the emergency department. All lab and imaging studies reviewed. Patient found to have a pulse oximetry of 86% with exertion on room air which is consistent with acute hypoxemic respiratory failure. Patient with chest x-ray which revealed bilateral pneumonia. Patient admitted to medical floor and initiated him on pneumonia protocol as well as coronavirus protocol. Patient knowledges fever but denies chills, chest pain, palpitation, skin rash, recent ill contacts, or known exposure to COVID-19. Prior admission on 01/21/2017 reviewed. All medication listed at time of admission has been reconciled. Patient is unvaccinated for coronavirus infection. CXR: Bilateral Pneumonia 04/17: Patient seen and examined, still uncomfortable with Hypoxic respiratory failure and on oxygen, will continue to steroids therapy, start patient on Remdesivir, ID consulted, Pulmonary consult placed. 04/18: Patient seen and examined, she is currently being changed to High flow NC due to worsening HYPOXIA, will transfer to IMCU, Pulmonary and ID following. Will also give a dose of Lasix today. Monitor Inflammatory markers. 04/19: Patient seen and examined still on high flow due to hypoxia. Appears a bit more comfortable today than yesterday. Cough has decreased in frequency. We will continue high dose Dexameathasone to complete 10 days. continue on Remdesivir 200 mg IV q day x 1 followed by 100 mg IV q day x 4 days -Obtain q48-72h inflammatory markers - ferritin, Ddimer, CRP, LDH Will also give lasix daily for the next 3 days and monitor renal function. Family updated. Continue prone positioning as tolerated 04/20: Patient has some desaturation episodes yesterday was placed on BiPAP. Discussed with ICU team for bed availability for patient to be transferred up. Continue prone position as tolerated. 04/21: Patient remains with profound hypoxia secondary to COVID pneumonia. -Continue steroids -Continue remedesir -S/P Actmera 04/22: Patient remains on steroids and remdesivir. ABG shows persistent hypoxia. We will continue current management additional trial of Lasix for the next few days to see if any improvement. Monitor inflammatory markers as needed. Prognosis is guarded remains on high flow 04/23; patient was treated with remdesivir and Actemra. Continue steroid. Patient's prognosis is guarded. 04/24; patient is on steroid. Patient is currently on BiPAP. Prognosis is guar ded. Pulmonary is following. Patient was given Lasix and Ativan. 04/25; continue steroid. Patient was on 40 L of high flow oxygen with saturation was 88%. Pulmonary is following. Prognosis is guarded. Patient was given lasix and ativan. 04/26; patient is on BiPAP and Precedex. Prognosis is guarded. 04/27; patient is on BiPAP and Precedex. Patient will finish steroid today and will start on Solu-Medrol tomorrow. Prognosis is guarded. Blood pressure is better today. Hold Lasix. 04/28 patient is on 100 Fio2 via BIPAP. moderately dyspneic, pulmonary note reviewed, lab results reviewed 04/29 no acute events- see systems review above 04/30 no acute events overnight - on airvo today- TPN started -see systems review above 05-01 no acute events overnight- tolerating airvo- see systems review above - no acute events overnight; tolerating airvo this AM- see systems review above 05/03: Patient remains on full high flow oxygen. No acute events overnight 05/04: Patient remains on BiPAP this morning at 70%. Returning to service Patient initially managed in the ICU and then transfered to the floor 06/25: Patient remains on full oxygen with high flow, encouraged to prone at night time. Spoke to Night nursing staff to ensure assisting the patient Prone. Continue steroid therapy, will discuss with Pulmonary about trying additional lasix. Plan discussed with patient and family. 06/26: Patient already on Lasix daily, Hypokalemia- Replace K. Continue to encourage Proning. Remains on high flow. 06/27: Continue supportive care unfortunately had to go up on her oxygen to 70% FiO2 prognosis remains guarded continue to encourage proning. 06/28: Continue supportive care, Encourage Proning 06/29: Mild hypokalemia noted yesterday will be replaced as it was not corrected yesterday we will recheck BMP in a.m. Continue IV Lasix. Monitor renal funct ion. 06/30: Give additional potassium for better control. Continue supportive care. Continue IV Lasix. Continue to encourage proning again discussed with the patient via car rider. He verbalized understanding 07/01: Brief summary patient seen and examined this morning continues to show improvement FiO2 demand down to 45% on 30 L on high flow. Patient is a 50-year-old male who was admitted with COVID-19 today is day 76 of her hospital stay she was initially managed in the ICU and now has been transferred to the floor. She remains on low-dose steroid therapy following completion of re mdesivir and recommended steroid. She is encouraged to continue to prone and the nights that she has done this has shown some improvement. She is still probably a long way from being discharged. Intermittent monitoring off electrolytes as she has had some episode of hyponatremia and hypomagnesemia is recommended. She is concerned about puffiness in her face which is likely steroid-induced I have discussed this with her that it will improve following discontinuation of steroid. In the meantime I have held her Lasix as we have been diuresing her for majority of her stay and this should be reevaluated the next few days to see if she will benefit from further diuresis. Pulmonary is on board #Acute hypoxemic respiratory failure -Transition from high flow nasal cannula to 40 L 100% FiO2 to BiPAP -Likely worsening in the setting of worsening anxiety -Pulmonology on board; appreciate recommendations #Sepsis secondary to COVID 19-resolved #Pneumonia-stable -Pneumonia protocol: Chest x-ray, CBC, CMP, IV antibiotic therapy, blood cultur e. #Coronavirus infection -Supportive care, infectious disease service consulted. Continue medical management. #Iatrogenic diarrhea - likely 2/2 to scheduled bowel regimen; discontinued all bowel regimen - will continue to monitor. Consider loperamide if symptoms don't resolve #Anxiety -Counseled patient about relaxation techniques -Continue Xanax 2.5 mg daily; will continue to monitor #Right eye- viral conjunctivitis vs subconjunctival hemorrhage -continue to monitor treated with ofloxacin ou x 5 days - artificial tears has not provided relief #Protein gisella malnutrition given inc metabolic demand with resp insufficiency -No longer on TPN #Diabetes mellitus with Hyperglycemia -Continue glargine 15 units daily with mild SSI and Accu-Cheks with meals -Blood sugar goal [id number] while #- volume overload; hypona; hypoMg #DVT prophylaxis -SCD to bilateral lower extremities while in bed, prophylactic anticoagulation #Deconditioning -PT/OT currently on board; appreciate recs -Patient will likely require SNF upon discharge given significant deconditioning Disposition Plan: Continue medical management Total Time Spent with Patient (Minutes): 30 History Interval history: Patient was transitioned from high flow to BiPAP overnight. Hospitalist Physical - Constitutional Vitals: Temp Pulse Resp BP Pulse Ox 99.0 F 114 H 20 114/76 100 07/05/21 06:36 07/05/21 06:36 07/05/21 06:36 07/05/21 06:36 07/05/21 08:20 General appearance: Present: no acute distress, well-nourished, obese - EENT Eyes: Present: PERRL, EOM intact ENT: hearing intact, clear oral mucosa, dentition normal - Neck Neck: Present: supple, normal ROM - Respiratory Respiratory effort: normal (Currently on BiPAP) - Cardiovascular Rhythm: regular Heart Sounds: Present: S1 & S2 - Extremities Extremities: no ischemia, pulses intact, pulses symmetrical, No edema, normal temperature, normal color Peripheral Pulses: within normal limits - Abdominal General gastrointestinal: soft, non-tender, non-distended, normal bowel sounds - Integumentary Integumentary: Present: clear, warm, dry - Psychiatric Psychiatric: appropriate mood/affect, intact judgment & insight, memory intact, cooperative - Neurologic Neurologic: CNII-XII intact, moves all extremities - Allied Health Allied health notes reviewed: nursing Results - Labs CBC & Chem 7: 07/03/21 05:46 07/04/21 06:35 Labs: Laboratory Last Values WBC 7.6 K/mm3 (4.5-11.0) 07/03/21 05:46 RBC 4.14 M/mm3 (3.65-5.03) 07/03/21 05:46 Hgb 12.6 gm/dl (10.1-14.3) 07/03/21 05:46 Hct 39.7 % (30.3-42.9) 07/03/21 05:46 MCV 96 fl (79-97) 07/03/21 05:46 MCH 30 pg (28-32) 07/03/21 05:46 MCHC 32 % (30-34) 07/03/21 05:46 RDW 19.6 % (13.2-15.2) H 07/03/21 05:46 Plt Count 279 K/mm3 (140-440) 07/03/21 05:46 Lymph % (Auto) 30.5 % (13.4-35.0) 07/03/21 05:46 [place] % (Auto) 5.9 % (0.0-7.3) 07/03/21 05:46 Eos % (Auto) 0.6 % (0.0-4.3) 07/03/21 05:46 Baso % (Auto) 1.0 % (0.0-1.8) 07/03/21 05:46 Lymph # (Auto) 2.3 K/mm3 (1.2-5.4) 07/03/21 05:46 [place] # (Auto) 0.5 K/mm3 (0.0-0.8) 07/03/21 05:46 Eos # (Auto) 0.0 K/mm3 (0.0-0.4) 07/03/21 05:46 Baso # (Auto) 0.1 K/mm3 (0.0-0.1) 07/03/21 05:46 Add Manual Diff Complete 05/12/21 04:05 Total Counted 100 05/12/21 04:05 Seg Neutrophils % 62.0 % (40.0-70.0) 07/03/21 05:46 Seg Neuts % (Manual) 94.0 % (40.0-70.0) H 05/12/21 04:05 Band Neutrophils % 1.0 % 05/12/21 04:05 Lymphocytes % (Manual) 4.0 % (13.4-35.0) L 05/12/21 04:05 Monocytes % (Manual) 1.0 % (0.0-7.3) 05/12/21 04:05 Nucleated RBC % Not Reportable 05/12/21 04:05 Seg Neutrophils # 4.7 K/mm3 (1.8-7.7) 07/03/21 05:46 Seg Neutrophils # Man 6.4 K/mm3 (1.8-7.7) 05/12/21 04:05 Band Neutrophils # 0.1 K/mm3 05/12/21 04:05 Lymphocytes # (Manual) 0.3 K/mm3 (1.2-5.4) L 05/12/21 04:05 Abs React Lymphs (Man) 0.0 K/mm3 05/12/21 04:05 Monocytes # (Manual) 0.1 K/mm3 (0.0-0.8) 05/12/21 04:05 Eosinophils # (Manual) 0.0 K/mm3 (0.0-0.4) 05/12/21 04:05 Basophils # (Manual) 0.0 K/mm3 (0.0-0.1) 05/12/21 04:05 Metamyelocytes # 0.0 K/mm3 05/12/21 04:05 Myelocytes # 0.0 K/mm3 05/12/21 04:05 Promyelocytes # 0.0 K/mm3 05/12/21 04:05 Blast Cells # 0.0 K/mm3 05/12/21 04:05 WBC Morphology Not Reportable 05/12/21 04:05 Hypersegmented Neuts Not Reportable 05/12/21 04:05 Hyposegmented Neuts Not Reportable 05/12/21 04:05 Hypogranular Neuts Not Reportable 05/12/21 04:05 Smudge Cells Not Reportable 05/12/21 04:05 Toxic Granulation Not Reportable 05/12/21 04:05 Toxic Vacuolation Not Reportable 05/12/21 04:05 Dohle Bodies Not Reportable 05/12/21 04:05 Pelger-Huet Anomaly Not Reportable 05/12/21 04:05 Janelle Rods Not Reportable 05/12/21 04:05 Platelet Estimate Consistent w auto 05/12/21 04:05 Clumped Platelets Not Reportable 05/12/21 04:05 Plt Clumps, EDTA Not Reportable 05/12/21 04:05 Large Platelets Not Reportable 05/12/21 04:05 Giant Platelets Not Reportable 05/12/21 04:05 Platelet Satelliting Not Reportable 05/12/21 04:05 Plt Morphology Comment Not Reportable 05/12/21 04:05 RBC Morphology Normal 05/12/21 04:05 Dimorphic RBCs Not Reportable 05/12/21 04:05 Polychromasia Not Reportable 05/12/21 04:05 Hypochromasia Not Reportable 05/12/21 04:05 Poikilocytosis Not Reportable 05/12/21 04:05 Anisocytosis Not Reportable 05/12/21 04:05 Microcytosis Not Reportable 05/12/21 04:05 Macrocytosis Not Reportable 05/12/21 04:05 Spherocytes Not Reportable 05/12/21 04:05 Pappenheimer Bodies Not Reportable 05/12/21 04:05 Sickle Cells Not Reportable 05/12/21 04:05 Target Cells Not Reportable 05/12/21 04:05 Tear Drop Cells Not Reportable 05/12/21 04:05 Ovalocytes Not Reportable 05/12/21 04:05 Helmet Cells Not Reportable 05/12/21 04:05 [place] Bodies Not Reportable 05/12/21 04:05 [place] Rings Not Reportable 05/12/21 04:05 Crow Cells Not Reportable 05/12/21 04:05 Bite Cells Not Reportable 05/12/21 04:05 Crenated Cell Not Reportable 05/12/21 04:05 Elliptocytes Not Reportable 05/12/21 04:05 Acanthocytes (Spur) Not Reportable 05/12/21 04:05 Rouleaux Not Reportable 05/12/21 04:05 Hemoglobin C Crystals Not Reportable 05/12/21 04:05 Schistocytes Not Reportable 05/12/21 04:05 Malaria parasites Not Reportable 05/12/21 04:05 Justin Bodies Not Reportable 05/12/21 04:05 Hem Pathologist Commnt No 05/12/21 04:05 D-Dimer 488.49 ng/mlDDU (0-234) H 06/05/21 05:26 ABG pH 7.403 pH Units (7.350-7.450) 05/14/21 02:23 POC ABG pCO2 45.4 mmHg (32.0-48.0) 05/03/21 04:49 ABG pCO2 50.2 mm Hg 05/14/21 02:23 POC ABG pO2 65.3 mmHg (83-108) L 05/03/21 04:49 ABG pO2 130.3 mm Hg (80.0-90.0) H 05/14/21 02:23 POC ABG HCO3 18.5 05/03/21 04:49 ABG HCO3 30.6 mmol/L (20.0-26.0) H 05/14/21 02:23 ABG O2 Saturation 98.5 % (95.0-99.0) 05/14/21 02:23 ABG O2 Content 17.9 (0.0-44) 05/14/21 02:23 POC ABG Base Excess -8.9 05/03/21 04:49 ABG Base Excess 4.9 mmol/L (-2.0-3.0) H 05/14/21 02:23 ABG Hemoglobin 13.0 gm/dl (12.0-16.0) 05/14/21 02:23 ABG Oxyhemoglobin 87.8 (94-98) L 05/03/21 04:49 ABG Carboxyhemoglobin 1.4 % (0.0-5.0) 05/14/21 02:23 ABG Methemoglobin 0.6 % (0.0-1.5) 05/14/21 02:23 ABG Sodium 133.0 mmol/L (136.0-145.0) L 05/03/21 04:49 ABG Potassium 3.9 mmol/L (3.40-4.50) 05/03/21 04:49 ABG Chloride 97.0 mmol/L (98-107) L 05/03/21 04:49 ABG Glucose 403 mg/dL (65-95) H 05/03/21 04:49 Oxyhemoglobin 96.5 % (95.0-99.0) 05/14/21 02:23 Carboxyhemoglobin 0.6 (0.5-1.5) 05/03/21 04:49 FiO2 90 % 05/14/21 02:23 FiO2 % 100.0 05/03/21 04:49 Sodium 142 mmol/L (137-145) 07/04/21 06:35 Potassium 4.4 mmol/L (3.6-5.0) D 07/04/21 06:35 Chloride 106.1 mmol/L (98-107) 07/04/21 06:35 Carbon Dioxide 27 mmol/L (22-30) 07/04/21 06:35 Anion Gap 13 mmol/L 07/04/21 06:35 BUN 11 mg/dL (7-17) 07/04/21 06:35 Creatinine 0.3 mg/dL (0.6-1.2) L 07/04/21 06:35 Estimated GFR > 60 ml/min 07/04/21 06:35 BUN/Creatinine Ratio 37 % 07/04/21 06:35 Glucose 118 mg/dL (65-100) H 07/04/21 06:35 POC Glucose 151 mg/dL (70-105) H 07/05/21 10:57 Hemoglobin A1c 8.5 % (4-6) H 04/18/21 07:36 Calcium 9.0 mg/dL (8.4-10.2) 07/04/21 06:35 Phosphorus 4.00 mg/dL (2.5-4.5) 07/03/21 05:46 Magnesium 1.90 mg/dL (1.7-2.3) 07/03/21 05:46 Ferritin 187.7 ng/mL (10.0-200.0) 06/05/21 05:26 Total Bilirubin 0.30 mg/dL (0.1-1.2) 06/28/21 05:43 AST 19 units/L (5-40) 06/28/21 05:43 ALT 63 units/L (7-56) H 06/28/21 05:43 Alkaline Phosphatase 61 units/L (35-129) 06/28/21 05:43 Lactate Dehydrogenase 475 units/L (91-180) H 06/05/21 05:26 C-Reactive Protein 0.10 mg/dL (0.00-1.30) 06/05/21 05:26 Total Protein 6.5 g/dL (6.3-8.2) 06/28/21 05:43 Albumin 3.3 g/dL (3.9-5) L 06/28/21 05:43 Albumin/Globulin Ratio 1.0 % 06/28/21 05:43 Triglycerides < 9 mg/dL (2-149) 05/03/21 04:30 Procalcitonin < 0.05 ng/mL (<0.15) 05/23/21 09:50 Arterial Blood Glucose 403 mg/dL (65-95) H 05/03/21 04:49 Arterial Blood Ionized Calcium 4.9 mg/dL (4.6-5.3) 05/03/21 04:49 Coronavirus (PCR) Positive (Negative) A 06/05/21 08:30 Amos/IV: Voiding Method Bedside Commode Active Medications - Current Medications Current Medications: Generic Name Dose Route Start Last Admin Trade Name Freq PRN Reason Stop Dose Admin Acetaminophen 650 mg 07/02/21 17:48 07/03/21 22:02 Acetaminophen 325 Mg Tab PO 650 mg Q4H PRN Administration Pain, Mild (1-3) Albuterol 2.5 mg 04/16/21 13:39 04/21/21 20:39 Albuterol 2.5 Mg/3 Ml Nebu IH 2.5 mg Q4HRT PRN Administration Shortness Of Breath Alprazolam 2 mg 07/04/21 12:00 07/05/21 10:12 Alprazolam 1 Mg Tab PO 2 mg BID TUTU Administration Ascorbic Acid 500 mg 04/24/21 10:00 07/05/21 10:12 Ascorbic Acid 500 Mg Tab PO 500 mg QDAY TUTU Administration Cholecalciferol 1,000 unit 04/17/21 10:00 07/05/21 10:12 Cholecalciferol (Vit D3) 1000 Unit (25 Mcg) Tab PO 1,000 unit QDAY TUTU Administration Dextrose 50 ml 04/18/21 07:30 04/28/21 09:59 Dextrose 50% In Water (25gm) 50 Ml Syringe IV 50 ml Q30MIN PRN Administration Hypoglycemia Protocol Enoxaparin Sodium 40 mg 05/19/21 22:00 07/04/21 21:59 Enoxaparin 40 Mg/0.4 Ml Inj SUB-Q 40 mg QDAY@2200 TUTU Administration Protocol Insulin Glargine 15 units 06/25/21 10:00 07/05/21 10:12 Insulin Glargine 100 Units/Ml SUB-Q 15 units DAILY TUTU Administration Insulin Human Lispro 0 unit 05/18/21 12:00 07/05/21 10:12 Insulin Lispro 100 Unit/Ml SUB-Q Not Given ACHS TUTU Protocol Magnesium Hydroxide 30 ml 06/07/21 16:30 06/11/21 11:06 Magnesium Hydroxide (Mom) Oral Liqd Udc PO 30 ml QDAY PRN Administration Constipation Ondansetron HCl 4 mg 04/16/21 14:00 05/30/21 10:07 Ondansetron 4 Mg/2 Ml Inj IV 4 mg Q8H PRN Administration Nausea And Vomiting Prednisone 10 mg 07/03/21 10:00 07/05/21 10:12 Prednisone 10 Mg Tab PO 10 mg QDAY TUTU Administration Sodium Chloride 10 ml 04/16/21 22:00 07/05/21 10:12 Sodium Chloride 0.9% 10 Ml Flush Syringe IV 10 ml BID TUTU Administration Sodium Chloride 10 ml 04/16/21 13:39 05/22/21 15:21 Sodium Chloride 0.9% 10 Ml Flush Syringe IV 10 ml PRN PRN Administration LINE FLUSH Zinc Sulfate 220 mg 04/16/21 22:00 07/05/21 10:13 Zinc Sulfate 220 Mg Cap PO 220 mg BID TUTU Administration Zolpidem Tartrate 10 mg 05/26/21 08:56 07/04/21 22:00 Zolpidem 5 Mg Tab PO 10 mg QHS PRN Administration Insomnia Nutrition/Malnutrition Assess - Dietary Evaluation Nutrition/Malnutrition Findings: Nutrition Notes Start: 04/23/21 07:41 Freq: Status: Active Protocol: Document 07/03/21 16:54 GB (Rec: 07/03/21 17:11 GB [id number]) Nutrition Notes Initial or Follow up Reassessment Current Diagnosis Respiratory Failure Other Pertinent Diagnosis oral thrush, COVID-19 pneu Current Diet consistent carbohydrate Labs/Tests 07/03: creatinine 0.3, K 3.2 Pertinent Medications Vit C, Vit D3, D5 (PRN), Prednisone, NaCl, Zn Sulfate Height 4 ft 11.84 in Weight 60.3 kg [place] Body Weight (kg) 45.09 BMI 26.1 Weight change and time frame 04/16/21: 74.843kg 05/17/21: 68.1kg 06/16/21: 60.3kg change of -14.54kg for -19.43% in 60 days. Per MD note: pt has been diuresed thorughout stay. Weight Status Overweight Subjective/Other Information MD notes 07/03: pt showing improvement, prednisone weaning down, possible weaning of O2. Last BM: 07/02 PO intake recorded at 50-100% Percent of energy/protein needs met: PO intake of meals meet 75% or greater of EEN Burn Absent Trauma Absent GI Symptoms None Food Allergy No Skin Integrity/Comment skin tear rt/lt buttocks Current % PO Good (75-100%) Minimum of two criteria No #3 Nutrition Diagnosis No nutrition diagnosis at this time Etiology respiratory failure As Evidenced by Signs and Symptoms recovering, good po, weight loss r/t diurese therapy #2 Nutrition Diagnosis Malnutrition Comments: Wt loss due to diurese for most of stay. PO intake is recorded at 75- 100% Etiology acute illness As Evidenced by Signs and Symptoms <50% EER in >5 days, >5% wt loss in 1 month Diagnosis Progress(for reassessment Resolved documentation) #1 Nutrition Diagnosis Inadequate oral intake Etiology ARF As Evidenced by Signs and Symptoms pt continues to meet 100%/93% of kcal/protein needs Diagnosis Progress(for reassessment Resolved documentation) Is patient on ventilator? No Is Patient Ambulatory and/or Out of Bed Yes REE-([place]-St. Jeor-ambulatory/OOB) [ 1491.022 [id number]] Kcal/Kg value to use for calculation 25 Approximate Energy Requirements Using 1508 kcal/Kg Calculation Used for Recommendations Kcal/kg Additional Notes Pro needs 1-1.2g/kg @ 60k -72g/day Fluid needs 1ml/kcal or per MD Nutrition Intervention Change Diet Order: continue Nutrition Support: n/a Add Supplement/Snack (indicate name/kcal n/a /protein ) Goal #1 PO intake of meals to be 75% or greater daily for LOS Goal #2 Weight to stabilize +/-3% current weight for LOS Follow-Up By: 08/07/21 Additional Comments f/u: po intake, weight - Attestation Statement I have reviewed and agreed w/ Malnutrition eval & tx plan: Yes
[2021-07-05] MEDS: ENOXAPARIN 40 MG/0.4 ML INJ SUB-Q SCH (22:07)
[2021-07-06] MEDS: ZINC SULFATE 220 MG CAP PO SCH ×2 (09:35→21:10)
[2021-07-06] MEDS: CHOLECALCIFEROL (VIT D3) 1000 UNIT (25 mcg) TAB PO SCH (09:35)
[2021-07-06] MEDS: INSULIN LISPRO 100 UNIT/ML SUB-Q SCH ×4 (09:35→22:03)
[2021-07-06] MEDS: ALPRAZolam 1 MG TAB PO SCH ×2 (09:35→21:09)
[2021-07-06] MEDS: predniSONE 10 MG TAB PO SCH (09:35)
[2021-07-06] MEDS: ASCORBIC ACID 500 MG TAB PO SCH (09:35)
[2021-07-06] MEDS: INSULIN GLARGINE 100 UNITS/ML SUB-Q SCH (09:36)
--- NOTE | 2021-07-06 12:47 | Progress Note ---
Assessment and Plan Assessment and plan: Assessment and plan: Admit 04/16 from ER 50 YO Female with GERD, Obesity, HLD presents to ED for evaluation. Patient reports "I cannot breathe". Patient states that she has experienced subjective fever, shortness of breath, malaise, body aches, dry cough, and shortness of emily ath over the past 1 week with progressively worsening symptoms over the same timeframe. EMS was notified and upon arrival the patient was found to be in distress and subsequent transported to [facility] for further care and evaluation of the aforementioned symptoms. The patient was seen and evaluated in the emergency department. All lab and imaging studies reviewed. Patient found to have a pulse oximetry of 86% with exertion on room air which is consistent with acute hypoxemic respiratory failure. Patient with chest x-ray which revealed bilateral pneumonia. Patient admitted to medical floor and initiated him on pneumonia protocol as well as coronavirus protocol. Patient knowledges fever but denies chills, chest pain, palpitation, skin rash, recent ill contacts, or known exposure to COVID-19. Prior admission on 01/21/2017 reviewed. All medication listed at time of admission has been reconciled. Patient is unvaccinated for coronavirus infection. CXR: Bilateral Pneumonia 04/17: Patient seen and examined, still uncomfortable with Hypoxic respiratory failure and on oxygen, will continue to steroids therapy, start patient on Remdesivir, ID consulted, Pulmonary consult placed. 04/18: Patient seen and examined, she is currently being changed to High flow NC due to worsening HYPOXIA, will transfer to IMCU, Pulmonary and ID following. Will also give a dose of Lasix today. Monitor Inflammatory markers. 04/19: Patient seen and examined still on high flow due to hypoxia. Appears a bit more comfortable today than yesterday. Cough has decreased in frequency. We will continue high dose Dexameathasone to complete 10 days. continue on Remdesivir 200 mg IV q day x 1 followed by 100 mg IV q day x 4 days -Obtain q48-72h inflammatory markers - ferritin, Ddimer, CRP, LDH Will also give lasix daily for the next 3 days and monitor renal function. Family updated. Continue prone positioning as tolerated 04/20: Patient has some desaturation episodes yesterday was placed on BiPAP. Discussed with ICU team for bed availability for patient to be transferred up. Continue prone position as tolerated. 04/21: Patient remains with profound hypoxia secondary to COVID pneumonia. -Continue steroids -Continue remedesir -S/P Actmera 04/22: Patient remains on steroids and remdesivir. ABG shows persistent hypoxia. We will continue current management additional trial of Lasix for the next few days to see if any improvement. Monitor inflammatory markers as needed. Prognosis is guarded remains on high flow 04/23; patient was treated with remdesivir and Actemra. Continue steroid. Patient's prognosis is guarded. 04/24; patient is on steroid. Patient is currently on BiPAP. Prognosis is guar ded. Pulmonary is following. Patient was given Lasix and Ativan. 04/25; continue steroid. Patient was on 40 L of high flow oxygen with saturation was 88%. Pulmonary is following. Prognosis is guarded. Patient was given lasix and ativan. 04/26; patient is on BiPAP and Precedex. Prognosis is guarded. 04/27; patient is on BiPAP and Precedex. Patient will finish steroid today and will start on Solu-Medrol tomorrow. Prognosis is guarded. Blood pressure is better today. Hold Lasix. 04/28 patient is on 100 Fio2 via BIPAP. moderately dyspneic, pulmonary note reviewed, lab results reviewed 04/29 no acute events- see systems review above 04/30 no acute events overnight - on airvo today- TPN started -see systems review above 05-01 no acute events overnight- tolerating airvo- see systems review above - no acute events overnight; tolerating airvo this AM- see systems review above 05/03: Patient remains on full high flow oxygen. No acute events overnight 05/04: Patient remains on BiPAP this morning at 70%. Returning to service Patient initially managed in the ICU and then transfered to the floor 06/25: Patient remains on full oxygen with high flow, encouraged to prone at night time. Spoke to Night nursing staff to ensure assisting the patient Prone. Continue steroid therapy, will discuss with Pulmonary about trying additional lasix. Plan discussed with patient and family. 06/26: Patient already on Lasix daily, Hypokalemia- Replace K. Continue to encourage Proning. Remains on high flow. 06/27: Continue supportive care unfortunately had to go up on her oxygen to 70% FiO2 prognosis remains guarded continue to encourage proning. 06/28: Continue supportive care, Encourage Proning 06/29: Mild hypokalemia noted yesterday will be replaced as it was not corrected yesterday we will recheck BMP in a.m. Continue IV Lasix. Monitor renal funct ion. 06/30: Give additional potassium for better control. Continue supportive care. Continue IV Lasix. Continue to encourage proning again discussed with the patient via technical illustrator. He verbalized understanding 07/01: Brief summary patient seen and examined this morning continues to show improvement FiO2 demand down to 45% on 30 L on high flow. Patient is a 50-year-old male who was admitted with COVID-19 today is day 76 of her hospital stay she was initially managed in the ICU and now has been transferred to the floor. She remains on low-dose steroid therapy following completion of re mdesivir and recommended steroid. She is encouraged to continue to prone and the nights that she has done this has shown some improvement. She is still probably a long way from being discharged. Intermittent monitoring off electrolytes as she has had some episode of hyponatremia and hypomagnesemia is recommended. She is concerned about puffiness in her face which is likely steroid-induced I have discussed this with her that it will improve following discontinuation of steroid. In the meantime I have held her Lasix as we have been diuresing her for majority of her stay and this should be reevaluated the next few days to see if she will benefit from further diuresis. Pulmonary is on board #Acute hypoxemic respiratory failure -Transitioned from BiPAP to high flow nasal cannula 40 L 100% FiO2 + Ventimask/nonrebreather. Saturating 98%. -Likely worsening in the setting of worsening anxiety -Pulmonology on board; appreciate recommendations #Sepsis secondary to COVID 19-resolved #Pneumonia-stable -Pneumonia protocol: Chest x-ray, CBC, CMP, IV antibiotic therapy, blood culture. #Coronavirus infection -Supportive care, infectious disease service consulted. Continue medical management. #Iatrogenic diarrhea - likely 2/2 to scheduled bowel regimen; discontinued all bowel regimen - will continue to monitor. Consider loperamide if symptoms don't resolve #Anxiety -Counseled patient about relaxation techniques -Continue Xanax 2.5 mg daily; will continue to monitor #Right eye- viral conjunctivitis vs subconjunctival hemorrhage -continue to monitor treated with ofloxacin ou x 5 days - artificial tears has not provided relief #Protein gisella malnutrition given inc metabolic demand with resp insufficiency -No longer on TPN #Diabetes mellitus with Hyperglycemia -Continue glargine 15 units daily with mild SSI and Accu-Cheks with meals -Blood sugar goal [id number] while #- volume overload; hypona; hypoMg #DVT prophylaxis -SCD to bilateral lower extremities while in bed, prophylactic anticoagulation #Deconditioning -PT/OT currently on board; appreciate recs -Patient will likely require SNF upon discharge given significant deconditioning Disposition Plan: Continue medical management Total Time Spent with Patient (Minutes): 30 History Interval history: Due to increased tachypnea, the patient is now on high flow and Ventimask/nonrebreather. Hospitalist Physical - Constitutional Vitals: Temp Pulse Resp BP Pulse Ox 98.2 F 108 H 18 132/78 98 07/06/21 05:09 07/06/21 05:09 07/06/21 05:09 07/06/21 05:09 07/06/21 09:50 General appearance: Present: no acute distress, well-nourished, obese - EENT Eyes: Present: PERRL, EOM intact ENT: hearing intact, clear oral mucosa, dentition normal - Neck Neck: Present: supple, normal ROM - Respiratory Respiratory effort: normal, labored (Currently on high flow and Ventimask/nonrebreather) - Cardiovascular Rhythm: regular Heart Sounds: Present: S1 & S2 - Extremities Extremities: no ischemia, pulses intact, pulses symmetrical, No edema, normal temperature, normal color Peripheral Pulses: within normal limits - Abdominal General gastrointestinal: soft, non-tender, non-distended, normal bowel sounds - Integumentary Integumentary: Present: clear, warm, dry - Psychiatric Psychiatric: appropriate mood/affect, intact judgment & insight, memory intact, cooperative - Neurologic Neurologic: CNII-XII intact, moves all extremities, other (Generalized weakness) - Allied Health Allied health notes reviewed: nursing Results - Labs CBC & Chem 7: 07/03/21 05:46 07/04/21 06:35 Labs: Laboratory Last Values WBC 7.6 K/mm3 (4.5-11.0) 07/03/21 05:46 RBC 4.14 M/mm3 (3.65-5.03) 07/03/21 05:46 Hgb 12.6 gm/dl (10.1-14.3) 07/03/21 05:46 Hct 39.7 % (30.3-42.9) 07/03/21 05:46 MCV 96 fl (79-97) 07/03/21 05:46 MCH 30 pg (28-32) 07/03/21 05:46 MCHC 32 % (30-34) 07/03/21 05:46 RDW 19.6 % (13.2-15.2) H 07/03/21 05:46 Plt Count 279 K/mm3 (140-440) 07/03/21 05:46 Lymph % (Auto) 30.5 % (13.4-35.0) 07/03/21 05:46 Heard % (Auto) 5.9 % (0.0-7.3) 07/03/21 05:46 Eos % (Auto) 0.6 % (0.0-4.3) 07/03/21 05:46 Baso % (Auto) 1.0 % (0.0-1.8) 07/03/21 05:46 Lymph # (Auto) 2.3 K/mm3 (1.2-5.4) 07/03/21 05:46 Heard # (Auto) 0.5 K/mm3 (0.0-0.8) 07/03/21 05:46 Eos # (Auto) 0.0 K/mm3 (0.0-0.4) 07/03/21 05:46 Baso # (Auto) 0.1 K/mm3 (0.0-0.1) 07/03/21 05:46 Add Manual Diff Complete 05/12/21 04:05 Total Counted 100 05/12/21 04:05 Seg Neutrophils % 62.0 % (40.0-70.0) 07/03/21 05:46 Seg Neuts % (Manual) 94.0 % (40.0-70.0) H 05/12/21 04:05 Band Neutrophils % 1.0 % 05/12/21 04:05 Lymphocytes % (Manual) 4.0 % (13.4-35.0) L 05/12/21 04:05 Monocytes % (Manual) 1.0 % (0.0-7.3) 05/12/21 04:05 Nucleated RBC % Not Reportable 05/12/21 04:05 Seg Neutrophils # 4.7 K/mm3 (1.8-7.7) 07/03/21 05:46 Seg Neutrophils # Man 6.4 K/mm3 (1.8-7.7) 05/12/21 04:05 Band Neutrophils # 0.1 K/mm3 05/12/21 04:05 Lymphocytes # (Manual) 0.3 K/mm3 (1.2-5.4) L 05/12/21 04:05 Abs React Lymphs (Man) 0.0 K/mm3 05/12/21 04:05 Monocytes # (Manual) 0.1 K/mm3 (0.0-0.8) 05/12/21 04:05 Eosinophils # (Manual) 0.0 K/mm3 (0.0-0.4) 05/12/21 04:05 Basophils # (Manual) 0.0 K/mm3 (0.0-0.1) 05/12/21 04:05 Metamyelocytes # 0.0 K/mm3 05/12/21 04:05 Myelocytes # 0.0 K/mm3 05/12/21 04:05 Promyelocytes # 0.0 K/mm3 05/12/21 04:05 Blast Cells # 0.0 K/mm3 05/12/21 04:05 WBC Morphology Not Reportable 05/12/21 04:05 Hypersegmented Neuts Not Reportable 05/12/21 04:05 Hyposegmented Neuts Not Reportable 05/12/21 04:05 Hypogranular Neuts Not Reportable 05/12/21 04:05 Smudge Cells Not Reportable 05/12/21 04:05 Toxic Granulation Not Reportable 05/12/21 04:05 Toxic Vacuolation Not Reportable 05/12/21 04:05 Dohle Bodies Not Reportable 05/12/21 04:05 Pelger-Huet Anomaly Not Reportable 05/12/21 04:05 Janelle Rods Not Reportable 05/12/21 04:05 Platelet Estimate Consistent w auto 05/12/21 04:05 Clumped Platelets Not Reportable 05/12/21 04:05 Plt Clumps, EDTA Not Reportable 05/12/21 04:05 Large Platelets Not Reportable 05/12/21 04:05 Giant Platelets Not Reportable 05/12/21 04:05 Platelet Satelliting Not Reportable 05/12/21 04:05 Plt Morphology Comment Not Reportable 05/12/21 04:05 RBC Morphology Normal 05/12/21 04:05 Dimorphic RBCs Not Reportable 05/12/21 04:05 Polychromasia Not Reportable 05/12/21 04:05 Hypochromasia Not Reportable 05/12/21 04:05 Poikilocytosis Not Reportable 05/12/21 04:05 Anisocytosis Not Reportable 05/12/21 04:05 Microcytosis Not Reportable 05/12/21 04:05 Macrocytosis Not Reportable 05/12/21 04:05 Spherocytes Not Reportable 05/12/21 04:05 Pappenheimer Bodies Not Reportable 05/12/21 04:05 Sickle Cells Not Reportable 05/12/21 04:05 Target Cells Not Reportable 05/12/21 04:05 Tear Drop Cells Not Reportable 05/12/21 04:05 Ovalocytes Not Reportable 05/12/21 04:05 Helmet Cells Not Reportable 05/12/21 04:05 Ahuja-Clever Bodies Not Reportable 05/12/21 04:05 Hooker Rings Not Reportable 05/12/21 04:05 Tatum Cells Not Reportable 05/12/21 04:05 Bite Cells Not Reportable 05/12/21 04:05 Crenated Cell Not Reportable 05/12/21 04:05 Elliptocytes Not Reportable 05/12/21 04:05 Acanthocytes (Spur) Not Reportable 05/12/21 04:05 Rouleaux Not Reportable 05/12/21 04:05 Hemoglobin C Crystals Not Reportable 05/12/21 04:05 Schistocytes Not Reportable 05/12/21 04:05 Malaria parasites Not Reportable 05/12/21 04:05 Justin Bodies Not Reportable 05/12/21 04:05 Hem Pathologist Commnt No 05/12/21 04:05 D-Dimer 488.49 ng/mlDDU (0-234) H 06/05/21 05:26 ABG pH 7.403 pH Units (7.350-7.450) 05/14/21 02:23 POC ABG pCO2 45.4 mmHg (32.0-48.0) 05/03/21 04:49 ABG pCO2 50.2 mm Hg 05/14/21 02:23 POC ABG pO2 65.3 mmHg (83-108) L 05/03/21 04:49 ABG pO2 130.3 mm Hg (80.0-90.0) H 05/14/21 02:23 POC ABG HCO3 18.5 05/03/21 04:49 ABG HCO3 30.6 mmol/L (20.0-26.0) H 05/14/21 02:23 ABG O2 Saturation 98.5 % (95.0-99.0) 05/14/21 02:23 ABG O2 Content 17.9 (0.0-44) 05/14/21 02:23 POC ABG Base Excess -8.9 05/03/21 04:49 ABG Base Excess 4.9 mmol/L (-2.0-3.0) H 05/14/21 02:23 ABG Hemoglobin 13.0 gm/dl (12.0-16.0) 05/14/21 02:23 ABG Oxyhemoglobin 87.8 (94-98) L 05/03/21 04:49 ABG Carboxyhemoglobin 1.4 % (0.0-5.0) 05/14/21 02:23 ABG Methemoglobin 0.6 % (0.0-1.5) 05/14/21 02:23 ABG Sodium 133.0 mmol/L (136.0-145.0) L 05/03/21 04:49 ABG Potassium 3.9 mmol/L (3.40-4.50) 05/03/21 04:49 ABG Chloride 97.0 mmol/L (98-107) L 05/03/21 04:49 ABG Glucose 403 mg/dL (65-95) H 05/03/21 04:49 Oxyhemoglobin 96.5 % (95.0-99.0) 05/14/21 02:23 Carboxyhemoglobin 0.6 (0.5-1.5) 05/03/21 04:49 FiO2 90 % 05/14/21 02:23 FiO2 % 100.0 05/03/21 04:49 Sodium 142 mmol/L (137-145) 07/04/21 06:35 Potassium 4.4 mmol/L (3.6-5.0) D 07/04/21 06:35 Chloride 106.1 mmol/L (98-107) 07/04/21 06:35 Carbon Dioxide 27 mmol/L (22-30) 07/04/21 06:35 Anion Gap 13 mmol/L 07/04/21 06:35 BUN 11 mg/dL (7-17) 07/04/21 06:35 Creatinine 0.3 mg/dL (0.6-1.2) L 07/04/21 06:35 Estimated GFR > 60 ml/min 07/04/21 06:35 BUN/Creatinine Ratio 37 % 07/04/21 06:35 Glucose 118 mg/dL (65-100) H 07/04/21 06:35 POC Glucose 173 mg/dL (70-105) H 07/06/21 11:49 Hemoglobin A1c 8.5 % (4-6) H 04/18/21 07:36 Calcium 9.0 mg/dL (8.4-10.2) 07/04/21 06:35 Phosphorus 4.00 mg/dL (2.5-4.5) 07/03/21 05:46 Magnesium 1.90 mg/dL (1.7-2.3) 07/03/21 05:46 Ferritin 187.7 ng/mL (10.0-200.0) 06/05/21 05:26 Total Bilirubin 0.30 mg/dL (0.1-1.2) 06/28/21 05:43 AST 19 units/L (5-40) 06/28/21 05:43 ALT 63 units/L (7-56) H 06/28/21 05:43 Alkaline Phosphatase 61 units/L (35-129) 06/28/21 05:43 Lactate Dehydrogenase 475 units/L (91-180) H 06/05/21 05:26 C-Reactive Protein 0.10 mg/dL (0.00-1.30) 06/05/21 05:26 Total Protein 6.5 g/dL (6.3-8.2) 06/28/21 05:43 Albumin 3.3 g/dL (3.9-5) L 06/28/21 05:43 Albumin/Globulin Ratio 1.0 % 06/28/21 05:43 Triglycerides < 9 mg/dL (2-149) 05/03/21 04:30 Procalcitonin < 0.05 ng/mL (<0.15) 05/23/21 09:50 Arterial Blood Glucose 403 mg/dL (65-95) H 05/03/21 04:49 Arterial Blood Ionized Calcium 4.9 mg/dL (4.6-5.3) 05/03/21 04:49 Coronavirus (PCR) Positive (Negative) A 06/05/21 08:30 Amos/IV: Voiding Method Bedpan Active Medications - Current Medications Current Medications: Generic Name Dose Route Start Last Admin Trade Name Freq PRN Reason Stop Dose Admin Acetaminophen 650 mg 07/02/21 17:48 07/03/21 22:02 Acetaminophen 325 Mg Tab PO 650 mg Q4H PRN Administration Pain, Mild (1-3) Albuterol 2.5 mg 04/16/21 13:39 04/21/21 20:39 Albuterol 2.5 Mg/3 Ml Nebu IH 2.5 mg Q4HRT PRN Administration Shortness Of Breath Alprazolam 2 mg 07/04/21 12:00 07/06/21 09:35 Alprazolam 1 Mg Tab PO 2 mg BID TUTU Administration Ascorbic Acid 500 mg 04/24/21 10:00 07/06/21 09:35 Ascorbic Acid 500 Mg Tab PO 500 mg QDAY TUTU Administration Cholecalciferol 1,000 unit 04/17/21 10:00 07/06/21 09:35 Cholecalciferol (Vit D3) 1000 Unit (25 Mcg) Tab PO 1,000 unit QDAY TUTU Administration Dextrose 50 ml 04/18/21 07:30 04/28/21 09:59 Dextrose 50% In Water (25gm) 50 Ml Syringe IV 50 ml Q30MIN PRN Administration Hypoglycemia Protocol Enoxaparin Sodium 40 mg 05/19/21 22:00 07/05/21 22:07 Enoxaparin 40 Mg/0.4 Ml Inj SUB-Q 40 mg QDAY@2200 TUTU Administration Protocol Insulin Glargine 15 units 06/25/21 10:00 07/06/21 09:36 Insulin Glargine 100 Units/Ml SUB-Q 15 units DAILY TUTU Administration Insulin Human Lispro 0 unit 05/18/21 12:00 07/06/21 09:35 Insulin Lispro 100 Unit/Ml SUB-Q Not Given ACHS TUTU Protocol Magnesium Hydroxide 30 ml 06/07/21 16:30 06/11/21 11:06 Magnesium Hydroxide (Mom) Oral Liqd Udc PO 30 ml QDAY PRN Administration Constipation Ondansetron HCl 4 mg 04/16/21 14:00 05/30/21 10:07 Ondansetron 4 Mg/2 Ml Inj IV 4 mg Q8H PRN Administration Nausea And Vomiting Prednisone 10 mg 07/03/21 10:00 07/06/21 09:35 Prednisone 10 Mg Tab PO 10 mg QDAY TUTU Administration Sodium Chloride 10 ml 04/16/21 22:00 07/05/21 22:07 Sodium Chloride 0.9% 10 Ml Flush Syringe IV 10 ml BID TUTU Administration Sodium Chloride 10 ml 04/16/21 13:39 05/22/21 15:21 Sodium Chloride 0.9% 10 Ml Flush Syringe IV 10 ml PRN PRN Administration LINE FLUSH Zinc Sulfate 220 mg 04/16/21 22:00 07/06/21 09:35 Zinc Sulfate 220 Mg Cap PO 220 mg BID TUTU Administration Zolpidem Tartrate 10 mg 05/26/21 08:56 07/04/21 22:00 Zolpidem 5 Mg Tab PO 10 mg QHS PRN Administration Insomnia Nutrition/Malnutrition Assess - Dietary Evaluation Nutrition/Malnutrition Findings: Nutrition Notes Start: 04/23/21 07:41 Freq: Status: Active Protocol: Document 07/03/21 16:54 GB (Rec: 07/03/21 17:11 GB [email or web address]) Nutrition Notes Initial or Follow up Reassessment Current Diagnosis Respiratory Failure Other Pertinent Diagnosis oral thrush, COVID-19 pneu Current Diet consistent carbohydrate Labs/Tests 07/03: creatinine 0.3, K 3.2 Pertinent Medications Vit C, Vit D3, D5 (PRN), Prednisone, NaCl, Zn Sulfate Height 4 ft 11.84 in Weight 60.3 kg Tyler Body Weight (kg) 45.09 BMI 26.1 Weight change and time frame 04/16/21: 74.843kg 05/17/21: 68.1kg 06/16/21: 60.3kg change of -14.54kg for -19.43% in 60 days. Per MD note: pt has been diuresed thorughout stay. Weight Status Overweight Subjective/Other Information MD notes 07/03: pt showing improvement, prednisone weaning down, possible weaning of O2. Last BM: 07/02 PO intake recorded at 50-100% Percent of energy/protein needs met: PO intake of meals meet 75% or greater of EEN Burn Absent Trauma Absent GI Symptoms None Food Allergy No Skin Integrity/Comment skin tear rt/lt buttocks Current % PO Good (75-100%) Minimum of two criteria No #3 Nutrition Diagnosis No nutrition diagnosis at this time Etiology respiratory failure As Evidenced by Signs and Symptoms recovering, good po, weight loss r/t diurese therapy #2 Nutrition Diagnosis Malnutrition Comments: Wt loss due to diurese for most of stay. PO intake is recorded at 75- 100% Etiology acute illness As Evidenced by Signs and Symptoms <50% EER in >5 days, >5% wt loss in 1 month Diagnosis Progress(for reassessment Resolved documentation) #1 Nutrition Diagnosis Inadequate oral intake Etiology ARF As Evidenced by Signs and Symptoms pt continues to meet 100%/93% of kcal/protein needs Diagnosis Progress(for reassessment Resolved documentation) Is patient on ventilator? No Is Patient Ambulatory and/or Out of Bed Yes REE-([place]-St. Jeor-ambulatory/OOB) [ 1491.022 [id number]] Kcal/Kg value to use for calculation 25 Approximate Energy Requirements Using 1508 kcal/Kg Calculation Used for Recommendations Kcal/kg Additional Notes Pro needs 1-1.2g/kg @ 60k -72g/day Fluid needs 1ml/kcal or per MD Nutrition Intervention Change Diet Order: continue Nutrition Support: n/a Add Supplement/Snack (indicate name/kcal n/a /protein ) Goal #1 PO intake of meals to be 75% or greater daily for LOS Goal #2 Weight to stabilize +/-3% current weight for LOS Follow-Up By: 08/07/21 Additional Comments f/u: po intake, weight - Attestation Statement I have reviewed and agreed w/ Malnutrition eval & tx plan: Yes
[2021-07-06] MEDS: ACETAMINOPHEN 325 MG TAB PO PRN (13:30)
--- NOTE | 2021-07-06 16:05 | XRay Report ---
CHEST 1 VIEW INDICATION / CLINICAL INFORMATION: Hypoxemia, worsening, prior COVID STUDY TIME: 1246 COMPARISON: 05/12/2021 FINDINGS: SUPPORT DEVICES: Stable HEART / MEDIASTINUM: Stable LUNGS / PLEURA: Diffuse bilateral infiltrates/edema have noticeably worsened. No pneumothorax. ADDITIONAL FINDINGS: No significant additional findings. Signer Name: Ritchie Moss MD Signed: 07/06/2021 4:00 PM Workstation Name: [id number]
[2021-07-06] MEDS: ENOXAPARIN 40 MG/0.4 ML INJ SUB-Q SCH (21:10)
[2021-07-07] MEDS: ACETAMINOPHEN 325 MG TAB PO PRN (06:07)
[2021-07-07 06:15] LABS: Basophils # (Auto) 0.2 K/mm3 (0.0-0.1); Eosinophils # (Auto) 0.3 K/mm3 (0.0-0.4); Eosinophils % (Auto) 1.9 % (0.0-4.3); Hematocrit 37.5 % (30.3-42.9); Hemoglobin 12.3 gm/dl (10.1-14.3); Lymphocytes # (Auto) 2.5 K/mm3 (1.2-5.4); Lymphocytes % (Auto) 15.6 % (13.4-35.0); Mean Corpuscular HGB Conc 33 % (30-34); Mean Corpuscular Volume 96 fl (79-97); Monocytes # (Auto) 1.1 K/mm3 (0.0-0.8); Monocytes % (Auto) 6.6 % (0.0-7.3); Red Cell Distribution Width 18.8 % (13.2-15.2)
[2021-07-07 06:38] LABS: Blood Urea Nitrogen 6 mg/dL (7-17); Calcium 8.6 mg/dL (8.4-10.2); Hemolysis Index 15; Platelet Count 262 K/mm3 (140-440)
[2021-07-07 06:40] LABS: BUN/Creatinine Ratio 30
[2021-07-07] MEDS: INSULIN LISPRO 100 UNIT/ML SUB-Q SCH ×4 (07:47→22:10)
[2021-07-07] MEDS ORDERED: POTASSIUM CHLORIDE ER 20 MEQ TAB PO ONE (09:00)
[2021-07-07] MEDS: ALPRAZolam 1 MG TAB PO SCH ×2 (09:01→21:32)
[2021-07-07] MEDS: CHOLECALCIFEROL (VIT D3) 1000 UNIT (25 mcg) TAB PO SCH (09:01)
[2021-07-07] MEDS: ZINC SULFATE 220 MG CAP PO SCH ×2 (09:01→21:32)
[2021-07-07] MEDS: ASCORBIC ACID 500 MG TAB PO SCH (09:01)
[2021-07-07] MEDS: predniSONE 10 MG TAB PO SCH (09:03)
[2021-07-07] MEDS: INSULIN GLARGINE 100 UNITS/ML SUB-Q SCH (09:52)
--- NOTE | 2021-07-07 12:10 | Progress Note ---
Assessment and Plan Assessment and plan: Admit 04/16 from ER 50 YO Female with GERD, Obesity, HLD presents to ED for evaluation. Patient reports "I cannot breathe". Patient states that she has experienced subjective fever, shortness of breath, malaise, body aches, dry cough, and shortness of breath over the past 1 week with progressively worsening symptoms over the same timeframe. EMS was notified and upon arrival the patient was found to be in distress and subsequent transported to [facility] for further care and evaluation of the aforementioned symptoms. The patient was seen and evaluated in the emergency department. All lab and imaging studies reviewed. Patient found to have a pulse oximetry of 86% with exertion on room air which is consistent with acute hypoxemic respiratory failure. Patient with chest x-ray which revealed bilateral pneumonia. Patient admitted to medical floor and initiated him on pneumonia protocol as well as coronavirus protocol. Patient knowledges fever but denies chills, chest pain, palpitation, skin rash, recent ill contacts, or known exposure to COVID-19. Prior admission on 01/21/2017 reviewed. All medication listed at time of admission has been reconciled. Patient is unvaccinated for coronavirus infection. CXR: Bilateral Pneumonia 04/17: Patient seen and examined, still uncomfortable with Hypoxic respiratory failure and on oxygen, will continue to steroids therapy, start patient on Remdesivir, ID consulted, Pulmonary consult placed. 04/18: Patient seen and examined, she is currently being changed to High flow NC due to worsening HYPOXIA, will transfer to IMCU, Pulmonary and ID following. Will also give a dose of Lasix today. Monitor Inflammatory markers. 04/19: Patient seen and examined still on high flow due to hypoxia. Appears a bit more comfortable today than yesterday. Cough has decreased in frequency. We will continue high dose Dexameathasone to complete 10 days. continue on Remdesivir 200 mg IV q day x 1 followed by 100 mg IV q day x 4 days -Obtain q48-72h inflammatory markers - ferritin, Ddimer, CRP, LDH Will also give lasix daily for the next 3 days and monitor renal function. Family updated. Continue prone positioning as tolerated 04/20: Patient has some desaturation episodes yesterday was placed on BiPAP. Discussed with ICU team for bed availability for patient to be transferred up. Continue prone position as tolerated. 04/21: Patient remains with profound hypoxia secondary to COVID pneumonia. -Continue steroids -Continue remedesir -S/P Actmera 04/22: Patient remains on steroids and remdesivir. ABG shows persistent hypoxia. We will continue current management additional trial of Lasix for the next few days to see if any improvement. Monitor inflammatory markers as needed. Prognosis is guarded remains on high flow 04/23; patient was treated with remdesivir and Actemra. Continue steroid. Patient's prognosis is guarded. 04/24; patient is on steroid. Patient is currently on BiPAP. Prognosis is guarded. Pulmonary is following. Patient was given Lasix and Ativan. 04/25; continue steroid. Patient was on 40 L of high flow oxygen with saturation was 88%. Pulmonary is following. Prognosis is guarded. Patient was given lasix and ativan. 04/26; patient is on BiPAP and Precedex. Prognosis is guarded. 04/27; patient is on BiPAP and Precedex. Patient will finish steroid today and will start on Solu-Medrol tomorrow. Prognosis is guarded. Blood pressure is better today. Hold Lasix. 04/28 patient is on 100 Fio2 via BIPAP. moderately dyspneic, pulmonary note reviewed, lab results reviewed 04/29 no acute events- see systems review above 04/30 no acute events overnight - on airvo today- TPN started -see systems review above 05-01 no acute events overnight- tolerating airvo- see systems review above 05-02 no acute events overnight; tolerating airvo this AM- see systems review above 05/03: Patient remains on full high flow oxygen. No acute events overnight 05/04: Patient remains on BiPAP this morning at 70%. Returning to service Patient initially managed in the ICU and then transfered to the floor 06/25: Patient remains on full oxygen with high flow, encouraged to prone at night time. Spoke to Night nursing staff to ensure assisting the patient Prone. Continue steroid therapy, will discuss with Pulmonary about trying additional lasix. Plan discussed with patient and family. 06/26: Patient already on Lasix daily, Hypokalemia- Replace K. Continue to encourage Proning. Remains on high flow. 06/27: Continue supportive care unfortunately had to go up on her oxygen to 70% FiO2 prognosis remains guarded continue to encourage proning. 06/28: Continue supportive care, Encourage Proning 06/29: Mild hypokalemia noted yesterday will be replaced as it was not corrected yesterday we will recheck BMP in a.m. Continue IV Lasix. Monitor renal function. 06/30: Give additional potassium for better control. Continue supportive care. Continue IV Lasix. Continue to encourage proning again discussed with the patient via operations program manager. He verbalized understanding 07/01: Brief summary patient seen and examined this morning continues to show improvement FiO2 demand down to 45% on 30 L on high flow. Patient is a 50-year-old male who was admitted with COVID-19 today is day 76 of her hospital stay she was initially managed in the ICU and now has been transferred to the floor. She remains on low-dose steroid therapy following completion of remdesivir and recommended steroid. She is encouraged to continue to prone and the nights that she has done this has shown some improvement. She is still probably a long way from being discharged. Intermittent monitoring off electrolytes as she has had some episode of hyponatremia and hypomagnesemia is recommended. She is concerned about puffiness in her face which is likely steroid-induced I have discussed this with her that it will improve following discontinuation of steroid. In the meantime I have held her Lasix as we have been diuresing her for majority of her stay and this should be reevaluated the next few days to see if she will benefit from further diuresis. Pulmonary is on board #Acute hypoxemic respiratory failure -Transitioned from BiPAP to high flow nasal cannula 40 L 100% FiO2 + Ventimask/nonrebreather. Saturating 98%. -Likely worsening in the setting of worsening anxiety -Pulmonology on board; appreciate recommendations #Sepsis secondary to COVID 19-resolved #Pneumonia-stable -Pneumonia protocol: Chest x-ray, CBC, CMP, IV antibiotic therapy, blood culture. #Coronavirus infection -Supportive care, infectious disease service consulted. Continue medical management. #Iatrogenic diarrhea-resolved - likely 2/2 to scheduled bowel regimen; discontinued all bowel regimen - will continue to monitor. Consider loperamide if symptoms don't resolve #Anxiety -Counseled patient about relaxation techniques -Continue Xanax 2.5 mg daily; will continue to monitor #Right eye- viral conjunctivitis vs subconjunctival hemorrhage -continue to monitor treated with ofloxacin ou x 5 days - artificial tears has not provided relief #Protein gisella malnutrition given inc metabolic demand with resp insufficiency -No longer on TPN #Diabetes mellitus with Hyperglycemia -Continue glargine 15 units daily with mild SSI and Accu-Cheks with meals -Blood sugar goal [id number] while #- volume overload; hypona; hypoMg #DVT prophylaxis -SCD to bilateral lower extremities while in bed, prophylactic anticoagulation #Deconditioning -PT/OT currently on board; appreciate recs -Patient will likely require SNF upon discharge given significant deconditioning Disposition Plan: Continue medical management Total Time Spent with Patient (Minutes): 30 History Interval history: No acute events overnight. Hospitalist Physical - Constitutional Vitals: Temp Pulse Resp BP Pulse Ox 97.8 F 110 H 17 128/79 97 07/07/21 11:53 07/07/21 11:53 07/07/21 11:53 07/07/21 11:53 07/07/21 11:53 General appearance: Present: no acute distress, well-nourished, obese - EENT Eyes: Present: PERRL, EOM intact ENT: hearing intact, clear oral mucosa, dentition normal - Neck Neck: Present: supple, normal ROM - Respiratory Respiratory effort: normal (Currently on high flow) - Cardiovascular Rhythm: regular Heart Sounds: Present: S1 & S2 - Extremities Extremities: no ischemia, pulses intact, pulses symmetrical, No edema, normal temperature, normal color Peripheral Pulses: within normal limits - Abdominal General gastrointestinal: soft, non-tender, non-distended, normal bowel sounds - Integumentary Integumentary: Present: clear, warm, dry - Psychiatric Psychiatric: appropriate mood/affect, intact judgment & insight, memory intact, agitated, other (Anxious) - Neurologic Neurologic: CNII-XII intact - Allied Health Allied health notes reviewed: nursing Results - Labs CBC & Chem 7: 07/07/21 06:00 07/07/21 06:00 Labs: Laboratory Last Values WBC 16.1 K/mm3 (4.5-11.0) H 07/07/21 06:00 RBC 3.90 M/mm3 (3.65-5.03) 07/07/21 06:00 Hgb 12.3 gm/dl (10.1-14.3) 07/07/21 06:00 Hct 37.5 % (30.3-42.9) 07/07/21 06:00 MCV 96 fl (79-97) 07/07/21 06:00 MCH 32 pg (28-32) 07/07/21 06:00 MCHC 33 % (30-34) 07/07/21 06:00 RDW 18.8 % (13.2-15.2) H 07/07/21 06:00 Plt Count 262 K/mm3 (140-440) 07/07/21 06:00 Lymph % (Auto) 15.6 % (13.4-35.0) 07/07/21 06:00 Whitley % (Auto) 6.6 % (0.0-7.3) 07/07/21 06:00 Eos % (Auto) 1.9 % (0.0-4.3) 07/07/21 06:00 Baso % (Auto) 1.0 % (0.0-1.8) 07/07/21 06:00 Lymph # (Auto) 2.5 K/mm3 (1.2-5.4) 07/07/21 06:00 Whitley # (Auto) 1.1 K/mm3 (0.0-0.8) H 07/07/21 06:00 Eos # (Auto) 0.3 K/mm3 (0.0-0.4) 07/07/21 06:00 Baso # (Auto) 0.2 K/mm3 (0.0-0.1) H 07/07/21 06:00 Add Manual Diff Complete 05/12/21 04:05 Total Counted 100 05/12/21 04:05 Seg Neutrophils % 74.9 % (40.0-70.0) H 07/07/21 06:00 Seg Neuts % (Manual) 94.0 % (40.0-70.0) H 05/12/21 04:05 Band Neutrophils % 1.0 % 05/12/21 04:05 Lymphocytes % (Manual) 4.0 % (13.4-35.0) L 05/12/21 04:05 Monocytes % (Manual) 1.0 % (0.0-7.3) 05/12/21 04:05 Nucleated RBC % Not Reportable 05/12/21 04:05 Seg Neutrophils # 12.1 K/mm3 (1.8-7.7) H 07/07/21 06:00 Seg Neutrophils # Man 6.4 K/mm3 (1.8-7.7) 05/12/21 04:05 Band Neutrophils # 0.1 K/mm3 05/12/21 04:05 Lymphocytes # (Manual) 0.3 K/mm3 (1.2-5.4) L 05/12/21 04:05 Abs React Lymphs (Man) 0.0 K/mm3 05/12/21 04:05 Monocytes # (Manual) 0.1 K/mm3 (0.0-0.8) 05/12/21 04:05 Eosinophils # (Manual) 0.0 K/mm3 (0.0-0.4) 05/12/21 04:05 Basophils # (Manual) 0.0 K/mm3 (0.0-0.1) 05/12/21 04:05 Metamyelocytes # 0.0 K/mm3 05/12/21 04:05 Myelocytes # 0.0 K/mm3 05/12/21 04:05 Promyelocytes # 0.0 K/mm3 05/12/21 04:05 Blast Cells # 0.0 K/mm3 05/12/21 04:05 WBC Morphology Not Reportable 05/12/21 04:05 Hypersegmented Neuts Not Reportable 05/12/21 04:05 Hyposegmented Neuts Not Reportable 05/12/21 04:05 Hypogranular Neuts Not Reportable 05/12/21 04:05 Smudge Cells Not Reportable 05/12/21 04:05 Toxic Granulation Not Reportable 05/12/21 04:05 Toxic Vacuolation Not Reportable 05/12/21 04:05 Dohle Bodies Not Reportable 05/12/21 04:05 Pelger-Huet Anomaly Not Reportable 05/12/21 04:05 Janelle Rods Not Reportable 05/12/21 04:05 Platelet Estimate Consistent w auto 05/12/21 04:05 Clumped Platelets Not Reportable 05/12/21 04:05 Plt Clumps, EDTA Not Reportable 05/12/21 04:05 Large Platelets Not Reportable 05/12/21 04:05 Giant Platelets Not Reportable 05/12/21 04:05 Platelet Satelliting Not Reportable 05/12/21 04:05 Plt Morphology Comment Not Reportable 05/12/21 04:05 RBC Morphology Normal 05/12/21 04:05 Dimorphic RBCs Not Reportable 05/12/21 04:05 Polychromasia Not Reportable 05/12/21 04:05 Hypochromasia Not Reportable 05/12/21 04:05 Poikilocytosis Not Reportable 05/12/21 04:05 Anisocytosis Not Reportable 05/12/21 04:05 Microcytosis Not Reportable 05/12/21 04:05 Macrocytosis Not Reportable 05/12/21 04:05 Spherocytes Not Reportable 05/12/21 04:05 Pappenheimer Bodies Not Reportable 05/12/21 04:05 Sickle Cells Not Reportable 05/12/21 04:05 Target Cells Not Reportable 05/12/21 04:05 Tear Drop Cells Not Reportable 05/12/21 04:05 Ovalocytes Not Reportable 05/12/21 04:05 Helmet Cells Not Reportable 05/12/21 04:05 Ahuja-Milton Bodies Not Reportable 05/12/21 04:05 [place] Rings Not Reportable 05/12/21 04:05 Crow Cells Not Reportable 05/12/21 04:05 Bite Cells Not Reportable 05/12/21 04:05 Crenated Cell Not Reportable 05/12/21 04:05 Elliptocytes Not Reportable 05/12/21 04:05 Acanthocytes (Spur) Not Reportable 05/12/21 04:05 Rouleaux Not Reportable 05/12/21 04:05 Hemoglobin C Crystals Not Reportable 05/12/21 04:05 Schistocytes Not Reportable 05/12/21 04:05 Malaria parasites Not Reportable 05/12/21 04:05 Justin Bodies Not Reportable 05/12/21 04:05 Hem Pathologist Commnt No 05/12/21 04:05 D-Dimer 488.49 ng/mlDDU (0-234) H 06/05/21 05:26 ABG pH 7.403 pH Units (7.350-7.450) 05/14/21 02:23 POC ABG pCO2 45.4 mmHg (32.0-48.0) 05/03/21 04:49 ABG pCO2 50.2 mm Hg 05/14/21 02:23 POC ABG pO2 65.3 mmHg (83-108) L 05/03/21 04:49 ABG pO2 130.3 mm Hg (80.0-90.0) H 05/14/21 02:23 POC ABG HCO3 18.5 05/03/21 04:49 ABG HCO3 30.6 mmol/L (20.0-26.0) H 05/14/21 02:23 ABG O2 Saturation 98.5 % (95.0-99.0) 05/14/21 02:23 ABG O2 Content 17.9 (0.0-44) 05/14/21 02:23 POC ABG Base Excess -8.9 05/03/21 04:49 ABG Base Excess 4.9 mmol/L (-2.0-3.0) H 05/14/21 02:23 ABG Hemoglobin 13.0 gm/dl (12.0-16.0) 05/14/21 02:23 ABG Oxyhemoglobin 87.8 (94-98) L 05/03/21 04:49 ABG Carboxyhemoglobin 1.4 % (0.0-5.0) 05/14/21 02:23 ABG Methemoglobin 0.6 % (0.0-1.5) 05/14/21 02:23 ABG Sodium 133.0 mmol/L (136.0-145.0) L 05/03/21 04:49 ABG Potassium 3.9 mmol/L (3.40-4.50) 05/03/21 04:49 ABG Chloride 97.0 mmol/L (98-107) L 05/03/21 04:49 ABG Glucose 403 mg/dL (65-95) H 05/03/21 04:49 Oxyhemoglobin 96.5 % (95.0-99.0) 05/14/21 02:23 Carboxyhemoglobin 0.6 (0.5-1.5) 05/03/21 04:49 FiO2 90 % 05/14/21 02:23 FiO2 % 100.0 05/03/21 04:49 Sodium 141 mmol/L (137-145) 07/07/21 06:00 Potassium 3.5 mmol/L (3.6-5.0) L D 07/07/21 06:00 Chloride 101.4 mmol/L (98-107) 07/07/21 06:00 Carbon Dioxide 30 mmol/L (22-30) 07/07/21 06:00 Anion Gap 13 mmol/L 07/07/21 06:00 BUN 6 mg/dL (7-17) L 07/07/21 06:00 Creatinine < 0.2 mg/dL (0.6-1.2) L 07/07/21 06:00 Estimated GFR > 60 ml/min 07/07/21 06:00 BUN/Creatinine Ratio 30 % 07/07/21 06:00 Glucose 106 mg/dL (65-100) H 07/07/21 06:00 POC Glucose 169 mg/dL (70-105) H 07/07/21 11:53 Hemoglobin A1c 8.5 % (4-6) H 04/18/21 07:36 Calcium 8.6 mg/dL (8.4-10.2) 07/07/21 06:00 Phosphorus 2.60 mg/dL (2.5-4.5) 07/07/21 06:00 Magnesium 1.70 mg/dL (1.7-2.3) 07/07/21 06:00 Ferritin 187.7 ng/mL (10.0-200.0) 06/05/21 05:26 Total Bilirubin 0.30 mg/dL (0.1-1.2) 06/28/21 05:43 AST 19 units/L (5-40) 06/28/21 05:43 ALT 63 units/L (7-56) H 06/28/21 05:43 Alkaline Phosphatase 61 units/L (35-129) 06/28/21 05:43 Lactate Dehydrogenase 475 units/L (91-180) H 06/05/21 05:26 C-Reactive Protein 0.10 mg/dL (0.00-1.30) 06/05/21 05:26 Total Protein 6.5 g/dL (6.3-8.2) 06/28/21 05:43 Albumin 3.3 g/dL (3.9-5) L 06/28/21 05:43 Albumin/Globulin Ratio 1.0 % 06/28/21 05:43 Triglycerides < 9 mg/dL (2-149) 05/03/21 04:30 Procalcitonin < 0.05 ng/mL (<0.15) 05/23/21 09:50 Arterial Blood Glucose 403 mg/dL (65-95) H 05/03/21 04:49 Arterial Blood Ionized Calcium 4.9 mg/dL (4.6-5.3) 05/03/21 04:49 Coronavirus (PCR) Positive (Negative) A 06/05/21 08:30 Amos/IV: Voiding Method Bedpan Active Medications - Current Medications Current Medications: Generic Name Dose Route Start Last Admin Trade Name Freq PRN Reason Stop Dose Admin Acetaminophen 650 mg 07/02/21 17:48 07/07/21 06:07 Acetaminophen 325 Mg Tab PO 650 mg Q4H PRN Administration Pain, Mild (1-3) Albuterol 2.5 mg 04/16/21 13:39 04/21/21 20:39 Albuterol 2.5 Mg/3 Ml Nebu IH 2.5 mg Q4HRT PRN Administration Shortness Of Breath Alprazolam 2 mg 07/04/21 12:00 07/07/21 09:01 Alprazolam 1 Mg Tab PO 2 mg BID TUTU Administration Ascorbic Acid 500 mg 04/24/21 10:00 07/07/21 09:01 Ascorbic Acid 500 Mg Tab PO 500 mg QDAY TUTU Administration Cholecalciferol 1,000 unit 04/17/21 10:00 07/07/21 09:01 Cholecalciferol (Vit D3) 1000 Unit (25 Mcg) Tab PO 1,000 unit QDAY TUTU Administration Dextrose 50 ml 04/18/21 07:30 04/28/21 09:59 Dextrose 50% In Water (25gm) 50 Ml Syringe IV 50 ml Q30MIN PRN Administration Hypoglycemia Protocol Enoxaparin Sodium 40 mg 05/19/21 22:00 07/06/21 21:10 Enoxaparin 40 Mg/0.4 Ml Inj SUB-Q 40 mg QDAY@2200 TUTU Administration Protocol Insulin Glargine 15 units 06/25/21 10:00 07/07/21 09:52 Insulin Glargine 100 Units/Ml SUB-Q 15 units DAILY TUTU Administration Insulin Human Lispro 0 unit 05/18/21 12:00 07/07/21 12:04 Insulin Lispro 100 Unit/Ml SUB-Q 3 unit ACHS TUTU Administration Protocol Magnesium Hydroxide 30 ml 06/07/21 16:30 06/11/21 11:06 Magnesium Hydroxide (Mom) Oral Liqd Udc PO 30 ml QDAY PRN Administration Constipation Ondansetron HCl 4 mg 04/16/21 14:00 05/30/21 10:07 Ondansetron 4 Mg/2 Ml Inj IV 4 mg Q8H PRN Administration Nausea And Vomiting Prednisone 10 mg 07/03/21 10:00 07/07/21 09:03 Prednisone 10 Mg Tab PO 10 mg QDAY TUTU Administration Sodium Chloride 10 ml 04/16/21 22:00 07/06/21 21:10 Sodium Chloride 0.9% 10 Ml Flush Syringe IV 10 ml BID TUTU Administration Sodium Chloride 10 ml 04/16/21 13:39 05/22/21 15:21 Sodium Chloride 0.9% 10 Ml Flush Syringe IV 10 ml PRN PRN Administration LINE FLUSH Zinc Sulfate 220 mg 04/16/21 22:00 07/07/21 09:01 Zinc Sulfate 220 Mg Cap PO 220 mg BID TUTU Administration Zolpidem Tartrate 10 mg 05/26/21 08:56 07/04/21 22:00 Zolpidem 5 Mg Tab PO 10 mg QHS PRN Administration Insomnia Nutrition/Malnutrition Assess - Dietary Evaluation Nutrition/Malnutrition Findings: Nutrition Notes Start: 04/23/21 07:41 Freq: Status: Active Protocol: Document 07/03/21 16:54 GB (Rec: 07/03/21 17:11 GB [id number]) Nutrition Notes Initial or Follow up Reassessment Current Diagnosis Respiratory Failure Other Pertinent Diagnosis oral thrush, COVID-19 pneu Current Diet consistent carbohydrate Labs/Tests 07/03: creatinine 0.3, K 3.2 Pertinent Medications Vit C, Vit D3, D5 (PRN), Prednisone, NaCl, Zn Sulfate Height 4 ft 11.84 in Weight 60.3 kg [place] Body Weight (kg) 45.09 BMI 26.1 Weight change and time frame 04/16/21: 74.843kg 05/17/21: 68.1kg 06/16/21: 60.3kg change of -14.54kg for -19.43% in 60 days. Per MD note: pt has been diuresed thorughout stay. Weight Status Overweight Subjective/Other Information MD notes 07/03: pt showing improvement, prednisone weaning down, possible weaning of O2. Last BM: 07/02 PO intake recorded at 50-100% Percent of energy/protein needs met: PO intake of meals meet 75% or greater of EEN Burn Absent Trauma Absent GI Symptoms None Food Allergy No Skin Integrity/Comment skin tear rt/lt buttocks Current % PO Good (75-100%) Minimum of two criteria No #3 Nutrition Diagnosis No nutrition diagnosis at this time Etiology respiratory failure As Evidenced by Signs and Symptoms recovering, good po, weight loss r/t diurese therapy #2 Nutrition Diagnosis Malnutrition Comments: Wt loss due to diurese for most of stay. PO intake is recorded at 75- 100% Etiology acute illness As Evidenced by Signs and Symptoms <50% EER in >5 days, >5% wt loss in 1 month Diagnosis Progress(for reassessment Resolved documentation) #1 Nutrition Diagnosis Inadequate oral intake Etiology ARF As Evidenced by Signs and Symptoms pt continues to meet 100%/93% of kcal/protein needs Diagnosis Progress(for reassessment Resolved documentation) Is patient on ventilator? No Is Patient Ambulatory and/or Out of Bed Yes REE-([facility]-ambulatory/OOB) [ 1491.022 [id number]] Kcal/Kg value to use for calculation 25 Approximate Energy Requirements Using 1508 kcal/Kg Calculation Used for Recommendations Kcal/kg Additional Notes Pro needs 1-1.2g/kg @ 60k -72g/day Fluid needs 1ml/kcal or per MD Nutrition Intervention Change Diet Order: continue Nutrition Support: n/a Add Supplement/Snack (indicate name/kcal n/a /protein ) Goal #1 PO intake of meals to be 75% or greater daily for LOS Goal #2 Weight to stabilize +/-3% current weight for LOS Follow-Up By: 08/07/21 Additional Comments f/u: po intake, weight - Attestation Statement I have reviewed and agreed w/ Malnutrition eval & tx plan: Yes
[2021-07-07] MEDS ORDERED: FUROSEMIDE 40 MG/4 ML INJ IV ONE (14:00)
[2021-07-07] MEDS: ENOXAPARIN 40 MG/0.4 ML INJ SUB-Q SCH (21:32)
[2021-07-08] MEDS: INSULIN LISPRO 100 UNIT/ML SUB-Q SCH ×4 (07:30→21:53)
[2021-07-08] MEDS: INSULIN GLARGINE 100 UNITS/ML SUB-Q SCH (09:04)
[2021-07-08] MEDS: ZINC SULFATE 220 MG CAP PO SCH ×2 (09:05→21:42)
[2021-07-08] MEDS: CHOLECALCIFEROL (VIT D3) 1000 UNIT (25 mcg) TAB PO SCH (09:06)
[2021-07-08] MEDS: ALPRAZolam 1 MG TAB PO SCH ×2 (09:06→21:42)
[2021-07-08] MEDS: ASCORBIC ACID 500 MG TAB PO SCH (09:06)
[2021-07-08] MEDS: predniSONE 10 MG TAB PO SCH (09:06)
--- NOTE | 2021-07-08 11:44 | Progress Note ---
Assessment and Plan Assessment and plan: Admit 04/16 from ER 50 YO Female with GERD, Obesity, HLD presents to ED for evaluation. Patient reports "I cannot breathe". Patient states that she has experienced subjective fever, shortness of breath, malaise, body aches, dry cough, and shortness of breath over the past 1 week with progressively worsening symptoms over the same timeframe. EMS was notified and upon arrival the patient was found to be in distress and subsequent transported to [facility] for further care and evaluation of the aforementioned symptoms. The patient was seen and evaluated in the emergency department. All lab and imaging studies reviewed. Patient found to have a pulse oximetry of 86% with exertion on room air which is consistent with acute hypoxemic respiratory failure. Patient with chest x-ray which revealed bilateral pneumonia. Patient admitted to medical floor and initiated him on pneumonia protocol as well as coronavirus protocol. Patient knowledges fever but denies chills, chest pain, palpitation, skin rash, recent ill contacts, or known exposure to COVID-19. Prior admission on 01/21/2017 reviewed. All medication listed at time of admission has been reconciled. Patient is unvaccinated for coronavirus infection. CXR: Bilateral Pneumonia 04/17: Patient seen and examined, still uncomfortable with Hypoxic respiratory failure and on oxygen, will continue to steroids therapy, start patient on Remdesivir, ID consulted, Pulmonary consult placed. 04/18: Patient seen and examined, she is currently being changed to High flow NC due to worsening HYPOXIA, will transfer to IMCU, Pulmonary and ID following. Will also give a dose of Lasix today. Monitor Inflammatory markers. 04/19: Patient seen and examined still on high flow due to hypoxia. Appears a bit more comfortable today than yesterday. Cough has decreased in frequency. We will continue high dose Dexameathasone to complete 10 days. continue on Remdesivir 200 mg IV q day x 1 followed by 100 mg IV q day x 4 days -Obtain q48-72h inflammatory markers - ferritin, Ddimer, CRP, LDH Will also give lasix daily for the next 3 days and monitor renal function. Family updated. Continue prone positioning as tolerated 04/20: Patient has some desaturation episodes yesterday was placed on BiPAP. Discussed with ICU team for bed availability for patient to be transferred up. Continue prone position as tolerated. 04/21: Patient remains with profound hypoxia secondary to COVID pneumonia. -Continue steroids -Continue remedesir -S/P Actmera 04/22: Patient remains on steroids and remdesivir. ABG shows persistent hypoxia. We will continue current management additional trial of Lasix for the next few days to see if any improvement. Monitor inflammatory markers as needed. Prognosis is guarded remains on high flow 04/23; patient was treated with remdesivir and Actemra. Continue steroid. Patient's prognosis is guarded. 04/24; patient is on steroid. Patient is currently on BiPAP. Prognosis is guarded. Pulmonary is following. Patient was given Lasix and Ativan. 04/25; continue steroid. Patient was on 40 L of high flow oxygen with saturation was 88%. Pulmonary is following. Prognosis is guarded. Patient was given lasix and ativan. 04/26; patient is on BiPAP and Precedex. Prognosis is guarded. 04/27; patient is on BiPAP and Precedex. Patient will finish steroid today and will start on Solu-Medrol tomorrow. Prognosis is guarded. Blood pressure is better today. Hold Lasix. 04/28 patient is on 100 Fio2 via BIPAP. moderately dyspneic, pulmonary note reviewed, lab results reviewed 04/29 no acute events- see systems review above 04/30 no acute events overnight - on airvo today- TPN started -see systems review above 05-01 no acute events overnight- tolerating airvo- see systems review above 05-02 no acute events overnight; tolerating airvo this AM- see systems review above 05/03: Patient remains on full high flow oxygen. No acute events overnight 05/04: Patient remains on BiPAP this morning at 70%. Returning to service Patient initially managed in the ICU and then transfered to the floor 06/25: Patient remains on full oxygen with high flow, encouraged to prone at night time. Spoke to Night nursing staff to ensure assisting the patient Prone. Continue steroid therapy, will discuss with Pulmonary about trying additional lasix. Plan discussed with patient and family. 06/26: Patient already on Lasix daily, Hypokalemia- Replace K. Continue to encourage Proning. Remains on high flow. 06/27: Continue supportive care unfortunately had to go up on her oxygen to 70% FiO2 prognosis remains guarded continue to encourage proning. 06/28: Continue supportive care, Encourage Proning 06/29: Mild hypokalemia noted yesterday will be replaced as it was not corrected yesterday we will recheck BMP in a.m. Continue IV Lasix. Monitor renal function. 06/30: Give additional potassium for better control. Continue supportive care. Continue IV Lasix. Continue to encourage proning again discussed with the patient via r developer. He verbalized understanding 07/01: Brief summary patient seen and examined this morning continues to show improvement FiO2 demand down to 45% on 30 L on high flow. Patient is a 50-year-old male who was admitted with COVID-19 today is day 76 of her hospital stay she was initially managed in the ICU and now has been transferred to the floor. She remains on low-dose steroid therapy following completion of remdesivir and recommended steroid. She is encouraged to continue to prone and the nights that she has done this has shown some improvement. She is still probably a long way from being discharged. Intermittent monitoring off electrolytes as she has had some episode of hyponatremia and hypomagnesemia is recommended. She is concerned about puffiness in her face which is likely steroid-induced I have discussed this with her that it will improve following discontinuation of steroid. In the meantime I have held her Lasix as we have been diuresing her for majority of her stay and this should be reevaluated the next few days to see if she will benefit from further diuresis. Pulmonary is on board #Acute hypoxemic respiratory failure-worsened -Currently on high flow nasal cannula 40 L 100% FiO2 + Ventimask/nonrebreather. Saturating 98%. -Unsure if worsened respiratory status is due to anxiety or Covid induced c ardiomyopathy. Pending echo and EKG for evaluation. Prognosis is guarded given the acute change in status. -Pulmonology on board; appreciate recommendations #Sepsis secondary to COVID 19-resolved #Pneumonia -Pneumonia protocol: Chest x-ray, CBC, CMP, IV antibiotic therapy, blood culture. #Coronavirus infection -Supportive care, infectious disease service consulted. Continue medical management. #Dysuria #Possible UTI -Pending urinalysis -Patient has not had a Amos or need for urinary instrumentation. Preemptively starting p.o. Levaquin 750 mg every 24 hours for 3-day course. -Continue to monitor #Anxiety -Counseled patient about relaxation techniques -Continue Xanax 2.5 mg daily; will continue to monitor #Iatrogenic diarrhea-resolved - likely 2/2 to scheduled bowel regimen; discontinued all bowel regimen - will continue to monitor. Consider loperamide if symptoms don't resolve #Right eye- viral conjunctivitis vs subconjunctival hemorrhage -continue to monitor treated with ofloxacin ou x 5 days - artificial tears has not provided relief #Protein gisella malnutrition given inc metabolic demand with resp insufficiency -No longer on TPN #Diabetes mellitus with Hyperglycemia -Continue glargine 15 units daily with mild SSI and Accu-Cheks with meals -Blood sugar goal [id number] while #- volume overload; hypona; hypoMg #DVT prophylaxis -SCD to bilateral lower extremities while in bed, prophylactic anticoagulation #Deconditioning -PT/OT currently on board; appreciate recs -Patient will likely require SNF upon discharge given significant deconditioning Disposition Plan: Continue medical management Total Time Spent with Patient (Minutes): 35 History Interval history: No acute events overnight. Hospitalist Physical - Constitutional Vitals: Temp Pulse Resp BP Pulse Ox 98.5 F 114 H 20 118/73 94 07/08/21 06:19 07/08/21 06:19 07/08/21 06:19 07/08/21 06:19 07/08/21 08:20 General appearance: Present: no acute distress, well-nourished, obese - EENT Eyes: Present: PERRL, EOM intact ENT: hearing intact, clear oral mucosa, dentition normal - Neck Neck: Present: supple, normal ROM - Respiratory Respiratory effort: normal (On high flow nasal cannula of 40 L 100% FiO2 + nonrebreather.) Respiratory: bilateral: rhonchi - Cardiovascular Rhythm: regular Heart Sounds: Present: S1 & S2 - Extremities Extremities: no ischemia, pulses intact, pulses symmetrical, No edema, normal temperature, normal color Peripheral Pulses: within normal limits - Abdominal General gastrointestinal: soft, non-tender, non-distended, normal bowel sounds - Integumentary Integumentary: Present: clear, warm, dry - Psychiatric Psychiatric: appropriate mood/affect, intact judgment & insight, memory intact, cooperative - Neurologic Neurologic: CNII-XII intact, moves all extremities - Allied Health Allied health notes reviewed: nursing Results - Labs CBC & Chem 7: 07/07/21 06:00 07/07/21 06:00 Labs: Laboratory Last Values WBC 16.1 K/mm3 (4.5-11.0) H 07/07/21 06:00 RBC 3.90 M/mm3 (3.65-5.03) 07/07/21 06:00 Hgb 12.3 gm/dl (10.1-14.3) 07/07/21 06:00 Hct 37.5 % (30.3-42.9) 07/07/21 06:00 MCV 96 fl (79-97) 07/07/21 06:00 MCH 32 pg (28-32) 07/07/21 06:00 MCHC 33 % (30-34) 07/07/21 06:00 RDW 18.8 % (13.2-15.2) H 07/07/21 06:00 Plt Count 262 K/mm3 (140-440) 07/07/21 06:00 Lymph % (Auto) 15.6 % (13.4-35.0) 07/07/21 06:00 Price % (Auto) 6.6 % (0.0-7.3) 07/07/21 06:00 Eos % (Auto) 1.9 % (0.0-4.3) 07/07/21 06:00 Baso % (Auto) 1.0 % (0.0-1.8) 07/07/21 06:00 Lymph # (Auto) 2.5 K/mm3 (1.2-5.4) 07/07/21 06:00 Price # (Auto) 1.1 K/mm3 (0.0-0.8) H 07/07/21 06:00 Eos # (Auto) 0.3 K/mm3 (0.0-0.4) 07/07/21 06:00 Baso # (Auto) 0.2 K/mm3 (0.0-0.1) H 07/07/21 06:00 Add Manual Diff Complete 05/12/21 04:05 Total Counted 100 05/12/21 04:05 Seg Neutrophils % 74.9 % (40.0-70.0) H 07/07/21 06:00 Seg Neuts % (Manual) 94.0 % (40.0-70.0) H 05/12/21 04:05 Band Neutrophils % 1.0 % 05/12/21 04:05 Lymphocytes % (Manual) 4.0 % (13.4-35.0) L 05/12/21 04:05 Monocytes % (Manual) 1.0 % (0.0-7.3) 05/12/21 04:05 Nucleated RBC % Not Reportable 05/12/21 04:05 Seg Neutrophils # 12.1 K/mm3 (1.8-7.7) H 07/07/21 06:00 Seg Neutrophils # Man 6.4 K/mm3 (1.8-7.7) 05/12/21 04:05 Band Neutrophils # 0.1 K/mm3 05/12/21 04:05 Lymphocytes # (Manual) 0.3 K/mm3 (1.2-5.4) L 05/12/21 04:05 Abs React Lymphs (Man) 0.0 K/mm3 05/12/21 04:05 Monocytes # (Manual) 0.1 K/mm3 (0.0-0.8) 05/12/21 04:05 Eosinophils # (Manual) 0.0 K/mm3 (0.0-0.4) 05/12/21 04:05 Basophils # (Manual) 0.0 K/mm3 (0.0-0.1) 05/12/21 04:05 Metamyelocytes # 0.0 K/mm3 05/12/21 04:05 Myelocytes # 0.0 K/mm3 05/12/21 04:05 Promyelocytes # 0.0 K/mm3 05/12/21 04:05 Blast Cells # 0.0 K/mm3 05/12/21 04:05 WBC Morphology Not Reportable 05/12/21 04:05 Hypersegmented Neuts Not Reportable 05/12/21 04:05 Hyposegmented Neuts Not Reportable 05/12/21 04:05 Hypogranular Neuts Not Reportable 05/12/21 04:05 Smudge Cells Not Reportable 05/12/21 04:05 Toxic Granulation Not Reportable 05/12/21 04:05 Toxic Vacuolation Not Reportable 05/12/21 04:05 Dohle Bodies Not Reportable 05/12/21 04:05 Pelger-Huet Anomaly Not Reportable 05/12/21 04:05 Janelle Rods Not Reportable 05/12/21 04:05 Platelet Estimate Consistent w auto 05/12/21 04:05 Clumped Platelets Not Reportable 05/12/21 04:05 Plt Clumps, EDTA Not Reportable 05/12/21 04:05 Large Platelets Not Reportable 05/12/21 04:05 Giant Platelets Not Reportable 05/12/21 04:05 Platelet Satelliting Not Reportable 05/12/21 04:05 Plt Morphology Comment Not Reportable 05/12/21 04:05 RBC Morphology Normal 05/12/21 04:05 Dimorphic RBCs Not Reportable 05/12/21 04:05 Polychromasia Not Reportable 05/12/21 04:05 Hypochromasia Not Reportable 05/12/21 04:05 Poikilocytosis Not Reportable 05/12/21 04:05 Anisocytosis Not Reportable 05/12/21 04:05 Microcytosis Not Reportable 05/12/21 04:05 Macrocytosis Not Reportable 05/12/21 04:05 Spherocytes Not Reportable 05/12/21 04:05 Pappenheimer Bodies Not Reportable 05/12/21 04:05 Sickle Cells Not Reportable 05/12/21 04:05 Target Cells Not Reportable 05/12/21 04:05 Tear Drop Cells Not Reportable 05/12/21 04:05 Ovalocytes Not Reportable 05/12/21 04:05 Helmet Cells Not Reportable 05/12/21 04:05 [place] Bodies Not Reportable 05/12/21 04:05 [place] Rings Not Reportable 05/12/21 04:05 [place] Cells Not Reportable 05/12/21 04:05 Bite Cells Not Reportable 05/12/21 04:05 Crenated Cell Not Reportable 05/12/21 04:05 Elliptocytes Not Reportable 05/12/21 04:05 Acanthocytes (Spur) Not Reportable 05/12/21 04:05 Rouleaux Not Reportable 05/12/21 04:05 Hemoglobin C Crystals Not Reportable 05/12/21 04:05 Schistocytes Not Reportable 05/12/21 04:05 Malaria parasites Not Reportable 05/12/21 04:05 Justin Bodies Not Reportable 05/12/21 04:05 Hem Pathologist Commnt No 05/12/21 04:05 D-Dimer 488.49 ng/mlDDU (0-234) H 06/05/21 05:26 ABG pH 7.403 pH Units (7.350-7.450) 05/14/21 02:23 POC ABG pCO2 45.4 mmHg (32.0-48.0) 05/03/21 04:49 ABG pCO2 50.2 mm Hg 05/14/21 02:23 POC ABG pO2 65.3 mmHg (83-108) L 05/03/21 04:49 ABG pO2 130.3 mm Hg (80.0-90.0) H 05/14/21 02:23 POC ABG HCO3 18.5 05/03/21 04:49 ABG HCO3 30.6 mmol/L (20.0-26.0) H 05/14/21 02:23 ABG O2 Saturation 98.5 % (95.0-99.0) 05/14/21 02:23 ABG O2 Content 17.9 (0.0-44) 05/14/21 02:23 POC ABG Base Excess -8.9 05/03/21 04:49 ABG Base Excess 4.9 mmol/L (-2.0-3.0) H 05/14/21 02:23 ABG Hemoglobin 13.0 gm/dl (12.0-16.0) 05/14/21 02:23 ABG Oxyhemoglobin 87.8 (94-98) L 05/03/21 04:49 ABG Carboxyhemoglobin 1.4 % (0.0-5.0) 05/14/21 02:23 ABG Methemoglobin 0.6 % (0.0-1.5) 05/14/21 02:23 ABG Sodium 133.0 mmol/L (136.0-145.0) L 05/03/21 04:49 ABG Potassium 3.9 mmol/L (3.40-4.50) 05/03/21 04:49 ABG Chloride 97.0 mmol/L (98-107) L 05/03/21 04:49 ABG Glucose 403 mg/dL (65-95) H 05/03/21 04:49 Oxyhemoglobin 96.5 % (95.0-99.0) 05/14/21 02:23 Carboxyhemoglobin 0.6 (0.5-1.5) 05/03/21 04:49 FiO2 90 % 05/14/21 02:23 FiO2 % 100.0 05/03/21 04:49 Sodium 141 mmol/L (137-145) 07/07/21 06:00 Potassium 3.5 mmol/L (3.6-5.0) L D 07/07/21 06:00 Chloride 101.4 mmol/L (98-107) 07/07/21 06:00 Carbon Dioxide 30 mmol/L (22-30) 07/07/21 06:00 Anion Gap 13 mmol/L 07/07/21 06:00 BUN 6 mg/dL (7-17) L 07/07/21 06:00 Creatinine < 0.2 mg/dL (0.6-1.2) L 07/07/21 06:00 Estimated GFR > 60 ml/min 07/07/21 06:00 BUN/Creatinine Ratio 30 % 07/07/21 06:00 Glucose 106 mg/dL (65-100) H 07/07/21 06:00 POC Glucose 132 mg/dL (70-105) H 07/08/21 08:09 Hemoglobin A1c 8.5 % (4-6) H 04/18/21 07:36 Calcium 8.6 mg/dL (8.4-10.2) 07/07/21 06:00 Phosphorus 2.60 mg/dL (2.5-4.5) 07/07/21 06:00 Magnesium 1.70 mg/dL (1.7-2.3) 07/07/21 06:00 Ferritin 187.7 ng/mL (10.0-200.0) 06/05/21 05:26 Total Bilirubin 0.30 mg/dL (0.1-1.2) 06/28/21 05:43 AST 19 units/L (5-40) 06/28/21 05:43 ALT 63 units/L (7-56) H 06/28/21 05:43 Alkaline Phosphatase 61 units/L (35-129) 06/28/21 05:43 Lactate Dehydrogenase 475 units/L (91-180) H 06/05/21 05:26 C-Reactive Protein 0.10 mg/dL (0.00-1.30) 06/05/21 05:26 NT-Pro-B Natriuret Pep 59.45 pg/mL (0-450) 07/07/21 13:40 Total Protein 6.5 g/dL (6.3-8.2) 06/28/21 05:43 Albumin 3.3 g/dL (3.9-5) L 06/28/21 05:43 Albumin/Globulin Ratio 1.0 % 06/28/21 05:43 Triglycerides < 9 mg/dL (2-149) 05/03/21 04:30 Procalcitonin < 0.05 ng/mL (<0.15) 05/23/21 09:50 Arterial Blood Glucose 403 mg/dL (65-95) H 05/03/21 04:49 Arterial Blood Ionized Calcium 4.9 mg/dL (4.6-5.3) 05/03/21 04:49 Coronavirus (PCR) Positive (Negative) A 06/05/21 08:30 Amos/IV: Voiding Method Bedpan Active Medications - Current Medications Current Medications: Generic Name Dose Route Start Last Admin Trade Name Freq PRN Reason Stop Dose Admin Acetaminophen 650 mg 07/02/21 17:48 07/07/21 06:07 Acetaminophen 325 Mg Tab PO 650 mg Q4H PRN Administration Pain, Mild (1-3) Albuterol 2.5 mg 04/16/21 13:39 04/21/21 20:39 Albuterol 2.5 Mg/3 Ml Nebu IH 2.5 mg Q4HRT PRN Administration Shortness Of Breath Alprazolam 2 mg 07/04/21 12:00 07/08/21 09:06 Alprazolam 1 Mg Tab PO Not Given BID TUTU Ascorbic Acid 500 mg 04/24/21 10:00 07/08/21 09:06 Ascorbic Acid 500 Mg Tab PO 500 mg QDAY TUTU Administration Cholecalciferol 1,000 unit 04/17/21 10:00 07/08/21 09:06 Cholecalciferol (Vit D3) 1000 Unit (25 Mcg) Tab PO 1,000 unit QDAY TUTU Administration Dextrose 50 ml 04/18/21 07:30 04/28/21 09:59 Dextrose 50% In Water (25gm) 50 Ml Syringe IV 50 ml Q30MIN PRN Administration Hypoglycemia Protocol Enoxaparin Sodium 40 mg 05/19/21 22:00 07/07/21 21:32 Enoxaparin 40 Mg/0.4 Ml Inj SUB-Q 40 mg QDAY@2200 TUTU Administration Protocol Insulin Glargine 15 units 06/25/21 10:00 07/08/21 09:04 Insulin Glargine 100 Units/Ml SUB-Q 15 units DAILY TUTU Administration Insulin Human Lispro 0 unit 05/18/21 12:00 07/08/21 07:30 Insulin Lispro 100 Unit/Ml SUB-Q Not Given ACHS [facility] Protocol Levofloxacin 750 mg 07/08/21 10:00 Levofloxacin 750 Mg Tab PO 07/10/21 10:01 Q24HR [facility] Protocol Magnesium Hydroxide 30 ml 06/07/21 16:30 06/11/21 11:06 Magnesium Hydroxide (Mom) Oral Liqd Udc PO 30 ml QDAY PRN Administration Constipation Ondansetron HCl 4 mg 04/16/21 14:00 05/30/21 10:07 Ondansetron 4 Mg/2 Ml Inj IV 4 mg Q8H PRN Administration Nausea And Vomiting Prednisone 10 mg 07/03/21 10:00 07/08/21 09:06 Prednisone 10 Mg Tab PO 10 mg QDAY TUTU Administration Sodium Chloride 10 ml 04/16/21 22:00 07/08/21 09:06 Sodium Chloride 0.9% 10 Ml Flush Syringe IV 10 ml BID TUTU Administration Sodium Chloride 10 ml 04/16/21 13:39 05/22/21 15:21 Sodium Chloride 0.9% 10 Ml Flush Syringe IV 10 ml PRN PRN Administration LINE FLUSH Zinc Sulfate 220 mg 04/16/21 22:00 07/08/21 09:05 Zinc Sulfate 220 Mg Cap PO 220 mg BID TUTU Administration Zolpidem Tartrate 10 mg 05/26/21 08:56 07/04/21 22:00 Zolpidem 5 Mg Tab PO 10 mg QHS PRN Administration Insomnia Nutrition/Malnutrition Assess - Dietary Evaluation Nutrition/Malnutrition Findings: Nutrition Notes Start: 04/23/21 07:41 Freq: Status: Active Protocol: Document 07/03/21 16:54 GB (Rec: 07/03/21 17:11 GB [id number]) Nutrition Notes Initial or Follow up Reassessment Current Diagnosis Respiratory Failure Other Pertinent Diagnosis oral thrush, COVID-19 pneu Current Diet consistent carbohydrate Labs/Tests 07/03: creatinine 0.3, K 3.2 Pertinent Medications Vit C, Vit D3, D5 (PRN), Prednisone, NaCl, Zn Sulfate Height 4 ft 11.84 in Weight 60.3 kg [place] Body Weight (kg) 45.09 BMI 26.1 Weight change and time frame 04/16/21: 74.843kg 05/17/21: 68.1kg 06/16/21: 60.3kg change of -14.54kg for -19.43% in 60 days. Per MD note: pt has been diuresed thorughout stay. Weight Status Overweight Subjective/Other Information MD notes 07/03: pt showing improvement, prednisone weaning down, possible weaning of O2. Last BM: 07/02 PO intake recorded at 50-100% Percent of energy/protein needs met: PO intake of meals meet 75% or greater of EEN Burn Absent Trauma Absent GI Symptoms None Food Allergy No Skin Integrity/Comment skin tear rt/lt buttocks Current % PO Good (75-100%) Minimum of two criteria No #3 Nutrition Diagnosis No nutrition diagnosis at this time Etiology respiratory failure As Evidenced by Signs and Symptoms recovering, good po, weight loss r/t diurese therapy #2 Nutrition Diagnosis Malnutrition Comments: Wt loss due to diurese for most of stay. PO intake is recorded at 75- 100% Etiology acute illness As Evidenced by Signs and Symptoms <50% EER in >5 days, >5% wt loss in 1 month Diagnosis Progress(for reassessment Resolved documentation) #1 Nutrition Diagnosis Inadequate oral intake Etiology ARF As Evidenced by Signs and Symptoms pt continues to meet 100%/93% of kcal/protein needs Diagnosis Progress(for reassessment Resolved documentation) Is patient on ventilator? No Is Patient Ambulatory and/or Out of Bed Yes REE-([facility]-ambulatory/OOB) [ 1491.022 [id number]] Kcal/Kg value to use for calculation 25 Approximate Energy Requirements Using 1508 kcal/Kg Calculation Used for Recommendations Kcal/kg Additional Notes Pro needs 1-1.2g/kg @ 60k -72g/day Fluid needs 1ml/kcal or per MD Nutrition Intervention Change Diet Order: continue Nutrition Support: n/a Add Supplement/Snack (indicate name/kcal n/a /protein ) Goal #1 PO intake of meals to be 75% or greater daily for LOS Goal #2 Weight to stabilize +/-3% current weight for LOS Follow-Up By: 08/07/21 Additional Comments f/u: po intake, weight - Attestation Statement I have reviewed and agreed w/ Malnutrition eval & tx plan: Yes
[2021-07-08] MEDS: levoFLOXacin 750 MG TAB PO SCH (12:46)
[2021-07-08] MEDS: ENOXAPARIN 40 MG/0.4 ML INJ SUB-Q SCH (21:43)
[2021-07-09] MEDS: ACETAMINOPHEN 325 MG TAB PO PRN ×2 (03:17→23:20)
[2021-07-09 05:07] LABS: Hematocrit 36.8 % (30.3-42.9); Hemoglobin 11.8 gm/dl (10.1-14.3); Mean Corpuscular HGB Conc 32 % (30-34); Mean Corpuscular Volume 95 fl (79-97); Platelet Count 299 K/mm3 (140-440); Red Blood Count 3.88 M/mm3 (3.65-5.03); Red Cell Distribution Width 18.3 % (13.2-15.2)
[2021-07-09 05:26] LABS: Blood Urea Nitrogen 13 mg/dL (7-17); Calcium 9.1 mg/dL (8.4-10.2); Hemolysis Index 7
[2021-07-09 05:30] LABS: BUN/Creatinine Ratio 65
[2021-07-09 06:35] LABS: Giant Platelets Rare; Hypochromasia Few; Platelet Estimate Consistent w Auto; Stomatocytes 1+; Total Cells Counted 100
[2021-07-09] MEDS: INSULIN LISPRO 100 UNIT/ML SUB-Q SCH ×4 (07:29→23:10)
--- NOTE | 2021-07-09 07:45 | Progress Note ---
Assessment and Plan Assessment and plan: #Acute hypoxic respiratory failure -Currently on high flow nasal cannula (40 L, 100% FiO2) -Given 1 dose of Lasix today -Continue prednisone 10 mg daily -Pulmonology following, assistance appreciated -Referral sent for LTACH (patient stay 84 days) #Heart failure with preserved ejection fraction -TTE: LVEF 55-60% with diastolic dysfunction -We will continue to monitor for signs of fluid overload #COVID-19 infection -Continue Covid vitamins #Type 2 diabetes -Continue Lantus 15 units daily and sliding scale insulin #Dysuria #Possible UTI -Improving -Urinalysis ordered 07/09, not collected -Empiric Levaquin day 2 of 3 #Anxiety -Stable -Continue Xanax #DVT prophylaxis -Lovenox 40 daily #Deconditioning -Will benefit from SNF after prolonged hospital stay, Resolved issues #Sepsis secondary to COVID-19 #Iatrogenic diarrhea #Hypomagnesemia #Hyponatremia #Protein calorie malnutrition Disposition Plan: Pending improvement in respiratory status, likely SNF Total Time Spent with Patient (Minutes): 30 minutes History Interval history: No acute events overnight. Communicated with patient with phone translation. No complaints today. Hospitalist Physical - Physical exam Narrative exam: GENERAL: Well-developed well-nourished. Lying in bed in no acute distress. HEENT: High flow nasal cannula at 40L/100% CHEST/LUNGS: Coarse breath sounds bilaterally. HEART/CARDIOVASCULAR: RRR. No murmur, rubs or gallops appreciated. ABDOMEN: +BS. NT/ND. EXTREMITIES: No cyanosis, clubbing or edema. PSYCH: Cooperative. - Constitutional Vitals: Temp Pulse Resp BP Pulse Ox 98.3 F 92 H 22 117/70 97 07/09/21 05:19 07/09/21 05:19 07/09/21 05:19 07/09/21 05:19 07/09/21 05:21 General appearance: Present: no acute distress, well-nourished, obese Results - Labs CBC & Chem 7: 07/09/21 04:45 07/09/21 04:45 Labs: Laboratory Last Values WBC 9.5 K/mm3 (4.5-11.0) 07/09/21 04:45 RBC 3.88 M/mm3 (3.65-5.03) 07/09/21 04:45 Hgb 11.8 gm/dl (10.1-14.3) 07/09/21 04:45 Hct 36.8 % (30.3-42.9) 07/09/21 04:45 MCV 95 fl (79-97) 07/09/21 04:45 MCH 30 pg (28-32) 07/09/21 04:45 MCHC 32 % (30-34) 07/09/21 04:45 RDW 18.3 % (13.2-15.2) H 07/09/21 04:45 Plt Count 299 K/mm3 (140-440) 07/09/21 04:45 Lymph % (Auto) 15.6 % (13.4-35.0) 07/07/21 06:00 [place] % (Auto) 6.6 % (0.0-7.3) 07/07/21 06:00 Eos % (Auto) 1.9 % (0.0-4.3) 07/07/21 06:00 Baso % (Auto) 1.0 % (0.0-1.8) 07/07/21 06:00 Lymph # (Auto) 2.5 K/mm3 (1.2-5.4) 07/07/21 06:00 [place] # (Auto) 1.1 K/mm3 (0.0-0.8) H 07/07/21 06:00 Eos # (Auto) 0.3 K/mm3 (0.0-0.4) 07/07/21 06:00 Baso # (Auto) 0.2 K/mm3 (0.0-0.1) H 07/07/21 06:00 Add Manual Diff Complete 07/09/21 04:45 Total Counted 100 07/09/21 04:45 Seg Neutrophils % 74.9 % (40.0-70.0) H 07/07/21 06:00 Seg Neuts % (Manual) 82.0 % (40.0-70.0) H 07/09/21 04:45 Band Neutrophils % 1.0 % 05/12/21 04:05 Lymphocytes % (Manual) 13.0 % (13.4-35.0) L 07/09/21 04:45 Monocytes % (Manual) 3.0 % (0.0-7.3) 07/09/21 04:45 Eosinophils % (Manual) 2.0 % (0.0-4.3) 07/09/21 04:45 Nucleated RBC % Not Reportable 07/09/21 04:45 Seg Neutrophils # 12.1 K/mm3 (1.8-7.7) H 07/07/21 06:00 Seg Neutrophils # Man 7.8 K/mm3 (1.8-7.7) H 07/09/21 04:45 Band Neutrophils # 0.0 K/mm3 07/09/21 04:45 Lymphocytes # (Manual) 1.2 K/mm3 (1.2-5.4) 07/09/21 04:45 Abs React Lymphs (Man) 0.0 K/mm3 07/09/21 04:45 Monocytes # (Manual) 0.3 K/mm3 (0.0-0.8) 07/09/21 04:45 Eosinophils # (Manual) 0.2 K/mm3 (0.0-0.4) 07/09/21 04:45 Basophils # (Manual) 0.0 K/mm3 (0.0-0.1) 07/09/21 04:45 Metamyelocytes # 0.0 K/mm3 07/09/21 04:45 Myelocytes # 0.0 K/mm3 07/09/21 04:45 Promyelocytes # 0.0 K/mm3 07/09/21 04:45 Blast Cells # 0.0 K/mm3 07/09/21 04:45 WBC Morphology Not Reportable 07/09/21 04:45 Hypersegmented Neuts Not Reportable 07/09/21 04:45 Hyposegmented Neuts Not Reportable 07/09/21 04:45 Hypogranular Neuts Not Reportable 07/09/21 04:45 Smudge Cells Not Reportable 07/09/21 04:45 Toxic Granulation Not Reportable 07/09/21 04:45 Toxic Vacuolation Not Reportable 07/09/21 04:45 Dohle Bodies Not Reportable 07/09/21 04:45 Pelger-Huet Anomaly Not Reportable 07/09/21 04:45 Janelle Rods Not Reportable 07/09/21 04:45 Platelet Estimate Consistent w auto 07/09/21 04:45 Clumped Platelets Not Reportable 07/09/21 04:45 Plt Clumps, EDTA Not Reportable 07/09/21 04:45 Large Platelets Not Reportable 07/09/21 04:45 Giant Platelets Rare 07/09/21 04:45 Platelet Satelliting Not Reportable 07/09/21 04:45 Plt Morphology Comment Not Reportable 07/09/21 04:45 RBC Morphology Not Reportable 07/09/21 04:45 Dimorphic RBCs Not Reportable 07/09/21 04:45 Polychromasia Not Reportable 07/09/21 04:45 Hypochromasia Few 07/09/21 04:45 Poikilocytosis Not Reportable 07/09/21 04:45 Anisocytosis Not Reportable 07/09/21 04:45 Microcytosis Not Reportable 07/09/21 04:45 Macrocytosis Not Reportable 07/09/21 04:45 Spherocytes Not Reportable 07/09/21 04:45 Pappenheimer Bodies Not Reportable 07/09/21 04:45 Sickle Cells Not Reportable 07/09/21 04:45 Target Cells Not Reportable 07/09/21 04:45 Tear Drop Cells Not Reportable 07/09/21 04:45 Ovalocytes Not Reportable 07/09/21 04:45 Stomatocytes 1+ 07/09/21 04:45 Helmet Cells Not Reportable 07/09/21 04:45 Ahuja-D'Lo Bodies Not Reportable 07/09/21 04:45 [place] Rings Not Reportable 07/09/21 04:45 [place] Cells Not Reportable 07/09/21 04:45 Bite Cells Not Reportable 07/09/21 04:45 Crenated Cell Not Reportable 07/09/21 04:45 Elliptocytes Not Reportable 07/09/21 04:45 Acanthocytes (Spur) Not Reportable 07/09/21 04:45 Rouleaux Not Reportable 07/09/21 04:45 Hemoglobin C Crystals Not Reportable 07/09/21 04:45 Schistocytes Not Reportable 07/09/21 04:45 Malaria parasites Not Reportable 07/09/21 04:45 Justin Bodies Not Reportable 07/09/21 04:45 Hem Pathologist Commnt No 07/09/21 04:45 D-Dimer 638.35 ng/mlDDU (0-234) H 07/09/21 04:45 ABG pH 7.403 pH Units (7.350-7.450) 05/14/21 02:23 POC ABG pCO2 45.4 mmHg (32.0-48.0) 05/03/21 04:49 ABG pCO2 50.2 mm Hg 05/14/21 02:23 POC ABG pO2 65.3 mmHg (83-108) L 05/03/21 04:49 ABG pO2 130.3 mm Hg (80.0-90.0) H 05/14/21 02:23 POC ABG HCO3 18.5 05/03/21 04:49 ABG HCO3 30.6 mmol/L (20.0-26.0) H 05/14/21 02:23 ABG O2 Saturation 98.5 % (95.0-99.0) 05/14/21 02:23 ABG O2 Content 17.9 (0.0-44) 05/14/21 02:23 POC ABG Base Excess -8.9 05/03/21 04:49 ABG Base Excess 4.9 mmol/L (-2.0-3.0) H 05/14/21 02:23 ABG Hemoglobin 13.0 gm/dl (12.0-16.0) 05/14/21 02:23 ABG Oxyhemoglobin 87.8 (94-98) L 05/03/21 04:49 ABG Carboxyhemoglobin 1.4 % (0.0-5.0) 05/14/21 02:23 ABG Methemoglobin 0.6 % (0.0-1.5) 05/14/21 02:23 ABG Sodium 133.0 mmol/L (136.0-145.0) L 05/03/21 04:49 ABG Potassium 3.9 mmol/L (3.40-4.50) 05/03/21 04:49 ABG Chloride 97.0 mmol/L (98-107) L 05/03/21 04:49 ABG Glucose 403 mg/dL (65-95) H 05/03/21 04:49 Oxyhemoglobin 96.5 % (95.0-99.0) 05/14/21 02:23 Carboxyhemoglobin 0.6 (0.5-1.5) 05/03/21 04:49 FiO2 90 % 05/14/21 02:23 FiO2 % 100.0 05/03/21 04:49 Sodium 140 mmol/L (137-145) 07/09/21 04:45 Potassium 3.7 mmol/L (3.6-5.0) 07/09/21 04:45 Chloride 96.9 mmol/L (98-107) L 07/09/21 04:45 Carbon Dioxide 35 mmol/L (22-30) H 07/09/21 04:45 Anion Gap 12 mmol/L 07/09/21 04:45 BUN 13 mg/dL (7-17) 07/09/21 04:45 Creatinine 0.2 mg/dL (0.6-1.2) L 07/09/21 04:45 Estimated GFR > 60 ml/min 07/09/21 04:45 BUN/Creatinine Ratio 65 % 07/09/21 04:45 Glucose 135 mg/dL (65-100) H 07/09/21 04:45 POC Glucose 148 mg/dL (70-105) H 07/09/21 07:36 Hemoglobin A1c 8.5 % (4-6) H 04/18/21 07:36 Calcium 9.1 mg/dL (8.4-10.2) 07/09/21 04:45 Phosphorus 3.60 mg/dL (2.5-4.5) 07/09/21 04:45 Magnesium 1.90 mg/dL (1.7-2.3) 07/09/21 04:45 Ferritin 155.9 ng/mL (10.0-200.0) 07/09/21 04:45 Total Bilirubin 0.30 mg/dL (0.1-1.2) 06/28/21 05:43 AST 19 units/L (5-40) 06/28/21 05:43 ALT 63 units/L (7-56) H 06/28/21 05:43 Alkaline Phosphatase 61 units/L (35-129) 06/28/21 05:43 Lactate Dehydrogenase 475 units/L (91-180) H 06/05/21 05:26 C-Reactive Protein 4.30 mg/dL (0.00-1.30) H 07/09/21 04:45 NT-Pro-B Natriuret Pep 59.45 pg/mL (0-450) 07/07/21 13:40 Total Protein 6.5 g/dL (6.3-8.2) 06/28/21 05:43 Albumin 3.3 g/dL (3.9-5) L 06/28/21 05:43 Albumin/Globulin Ratio 1.0 % 06/28/21 05:43 Triglycerides < 9 mg/dL (2-149) 05/03/21 04:30 Procalcitonin < 0.05 ng/mL (<0.15) 05/23/21 09:50 Arterial Blood Glucose 403 mg/dL (65-95) H 05/03/21 04:49 Arterial Blood Ionized Calcium 4.9 mg/dL (4.6-5.3) 05/03/21 04:49 Coronavirus (PCR) Positive (Negative) A 06/05/21 08:30 Amos/IV: Voiding Method Bedpan Active Medications - Current Medications Current Medications: Generic Name Dose Route Start Last Admin Trade Name Freq PRN Reason Stop Dose Admin Acetaminophen 650 mg 07/02/21 17:48 07/09/21 03:17 Acetaminophen 325 Mg Tab PO 650 mg Q4H PRN Administration Pain, Mild (1-3) Albuterol 2.5 mg 04/16/21 13:39 04/21/21 20:39 Albuterol 2.5 Mg/3 Ml Nebu IH 2.5 mg Q4HRT PRN Administration Shortness Of Breath Alprazolam 2 mg 07/04/21 12:00 07/08/21 21:42 Alprazolam 1 Mg Tab PO Not Given BID TUTU Ascorbic Acid 500 mg 04/24/21 10:00 07/08/21 09:06 Ascorbic Acid 500 Mg Tab PO 500 mg QDAY TUTU Administration Cholecalciferol 1,000 unit 04/17/21 10:00 07/08/21 09:06 Cholecalciferol (Vit D3) 1000 Unit (25 Mcg) Tab PO 1,000 unit QDAY TUTU Administration Dextrose 50 ml 04/18/21 07:30 04/28/21 09:59 Dextrose 50% In Water (25gm) 50 Ml Syringe IV 50 ml Q30MIN PRN Administration Hypoglycemia Protocol Enoxaparin Sodium 40 mg 05/19/21 22:00 07/08/21 21:43 Enoxaparin 40 Mg/0.4 Ml Inj SUB-Q 40 mg QDAY@2200 TUTU Administration Protocol Insulin Glargine 15 units 06/25/21 10:00 07/08/21 09:04 Insulin Glargine 100 Units/Ml SUB-Q 15 units DAILY TUTU Administration Insulin Human Lispro 0 unit 05/18/21 12:00 07/08/21 21:53 Insulin Lispro 100 Unit/Ml SUB-Q Not Given ACHS TUTU Protocol Levofloxacin 750 mg 07/08/21 10:00 07/08/21 12:46 Levofloxacin 750 Mg Tab PO 07/10/21 10:01 750 mg Q24HR TUTU Administration Protocol Ondansetron HCl 4 mg 04/16/21 14:00 05/30/21 10:07 Ondansetron 4 Mg/2 Ml Inj IV 4 mg Q8H PRN Administration Nausea And Vomiting Prednisone 10 mg 07/03/21 10:00 07/08/21 09:06 Prednisone 10 Mg Tab PO 10 mg QDAY TUTU Administration Sodium Chloride 10 ml 04/16/21 22:00 07/08/21 21:42 Sodium Chloride 0.9% 10 Ml Flush Syringe IV 10 ml BID TUTU Administration Sodium Chloride 10 ml 04/16/21 13:39 05/22/21 15:21 Sodium Chloride 0.9% 10 Ml Flush Syringe IV 10 ml PRN PRN Administration LINE FLUSH Zinc Sulfate 220 mg 04/16/21 22:00 07/08/21 21:42 Zinc Sulfate 220 Mg Cap PO 220 mg BID TUTU Administration Zolpidem Tartrate 10 mg 05/26/21 08:56 07/04/21 22:00 Zolpidem 5 Mg Tab PO 10 mg QHS PRN Administration Insomnia Nutrition/Malnutrition Assess - Dietary Evaluation Nutrition/Malnutrition Findings: Nutrition Notes Start: 04/23/21 07:41 Freq: Status: Active Protocol: Document 07/03/21 16:54 GB (Rec: 07/03/21 17:11 GB [id number]) Nutrition Notes Initial or Follow up Reassessment Current Diagnosis Respiratory Failure Other Pertinent Diagnosis oral thrush, COVID-19 pneu Current Diet consistent carbohydrate Labs/Tests 07/03: creatinine 0.3, K 3.2 Pertinent Medications Vit C, Vit D3, D5 (PRN), Prednisone, NaCl, Zn Sulfate Height 4 ft 11.84 in Weight 60.3 kg [place] Body Weight (kg) 45.09 BMI 26.1 Weight change and time frame 04/16/21: 74.843kg 05/17/21: 68.1kg 06/16/21: 60.3kg change of -14.54kg for -19.43% in 60 days. Per MD note: pt has been diuresed thorughout stay. Weight Status Overweight Subjective/Other Information MD notes 07/03: pt showing improvement, prednisone weaning down, possible weaning of O2. Last BM: 07/02 PO intake recorded at 50-100% Percent of energy/protein needs met: PO intake of meals meet 75% or greater of EEN Burn Absent Trauma Absent GI Symptoms None Food Allergy No Skin Integrity/Comment skin tear rt/lt buttocks Current % PO Good (75-100%) Minimum of two criteria No #3 Nutrition Diagnosis No nutrition diagnosis at this time Etiology respiratory failure As Evidenced by Signs and Symptoms recovering, good po, weight loss r/t diurese therapy #2 Nutrition Diagnosis Malnutrition Comments: Wt loss due to diurese for most of stay. PO intake is recorded at 75- 100% Etiology acute illness As Evidenced by Signs and Symptoms <50% EER in >5 days, >5% wt loss in 1 month Diagnosis Progress(for reassessment Resolved documentation) #1 Nutrition Diagnosis Inadequate oral intake Etiology ARF As Evidenced by Signs and Symptoms pt continues to meet 100%/93% of kcal/protein needs Diagnosis Progress(for reassessment Resolved documentation) Is patient on ventilator? No Is Patient Ambulatory and/or Out of Bed Yes REE-([facility]-ambulatory/OOB) [ 1491.022 [id number]] Kcal/Kg value to use for calculation 25 Approximate Energy Requirements Using 1508 kcal/Kg Calculation Used for Recommendations Kcal/kg Additional Notes Pro needs 1-1.2g/kg @ 60k -72g/day Fluid needs 1ml/kcal or per MD Nutrition Intervention Change Diet Order: continue Nutrition Support: n/a Add Supplement/Snack (indicate name/kcal n/a /protein ) Goal #1 PO intake of meals to be 75% or greater daily for LOS Goal #2 Weight to stabilize +/-3% current weight for LOS Follow-Up By: 08/07/21 Additional Comments f/u: po intake, weight
--- NOTE | 2021-07-09 11:03 | Progress Note ---
Assessment and Plan 50 y/o female with acute respiratory failure secondary to COVID19 pneumonia. 07/09/21: Echo shows diastolic dysfunction. Will given an additional 40 of IV lasix today. Monitor daily and wean aggressively for sats >88% 07/08/21: Worsening CXR, Gave lasix yesterday and will give again today. Suggest checking echo, ekg. Prognosis is poor now with this change. We have seen COVID cause CAD with PR. 07/05/21: Will monitor over the weekend. Worst case scenario, may need to go back up to Prednisone 20 at least. Prone if able. Unsure why all of sudden oxygen requirement increasing. Will repeat CXR. 07/03/21: Down to 10 of prednisone. Will keep through the weekend and then drop to 5 on Thursday. PT/OT assessment if not done. Suggest maybe weaning flow now given FiO2 down to 50%. Prognosis is still guarded. 07/01/21: Will drop steroids to 10mg daily starting tomorrow. Wean for sats >88%. Prone. PT/OT should be seeing now that oxygen requirement is down more. 06/28/21: Continue to wean as tolerated. Will drop steroids down even further next week. Will see PRN over the weekend. 06/26/21: Will drop steroids down to 20 starting tomorrow. Prone. Continue to wean as tolerated. 06/24/21: Continue Pred, will drop to 20 daily tomorrow. Prone if able. Hopeful they can wean FiO2 more. May need to consider increasing flow for a while. 06/21/21: Continue pred at 40, will decrease likely Thursday/Thursday to 20 daily. Prone if able. Continue to wean as tolerated. Prognosis still remains guarded. 06/20/21: Will drop steroids down to 40 today. Proning. Continue to wean FiO2. 06/18/21: Wean Fio2 for sats >88%. Please encourage proning. Drop steroids down to 40 on . 06/14/21: Continue oral steroid therapy. Will do further weaning next week. Wean for sats >88% and prone as tolerated. Will see as needed over the weekend. 06/13/21: Will change to prednisone 60 daily starting tomorrow. Prone if able and wean for sats >88% 06/11/21: no new recs, will change to oral steroids tomorrow, continue to prone if able and wean for sats >88% 06/10/21: Will change to oral steroids on Thursday to begin prolonged taper 06/06/21: Continue to wean as tolerated, will drop steroids on tomorrow. 06/04/21: Clinically no change. Will drop steroids down the end of this week. 05/31/21: Clinically no change. Not eligible for LTACH. Encourage Proning. Will drop steroids down to 40 q8 05/29/21: No acute changes clinically. Still on HFNC but not really able to wean. Continue to encourage proning. Will drop steroids further on Thursday. 05/27/21: No improvement over the weekend but also no worsening. No other strategies to offer. Please continue to encourage patient to prone. I dropped steroids on yesterday. Will wean more later in the week. 05/24/21: No new recs again for today. Will see as needed over the weekend but follow chart peripherally for changes. 05/22/21: No new recs for today. Prognosis remains guarded. 05/21/21: Wean as tolerated. Prone if able. Guarded prognosis 05/20/21: COntinue current level of care. 05/17/21: Prone if possible. Wean FiO2 for sats >88%. Continue scheduled ativan. Prognosis is very very guarded. Unfunded so not a candidate for LTACH 05/16/21: Prone if willing. Wean FIO2 if patient will allow. Anxiety control. Prognosis still remains very guarded. 05/15/21: Not sure if MAR is accurate but may have only gotten one dose of scheduled anixolytic therapy. Continue proning as tolerated, and wean FiO2 and flow for sats >88%. Prognosi remains very very guarded to poor. 05/14/21: Will discontinue the buspar and make the ativan scheduled but will do q6 as oppose to q4 and attempt to leave parameters for nursing when not to give. If anxiety could be controlled, feel that patient could be weaned further. She has no funding so she is not a candidate for LTACH. Prone if possible. Guarded prognosis. This is her 28th day. 05/13/21: Ordered buspar 10 BID to start with to help with anxiety. Please continue to wean FiO2 as tolerated. Will remind nurse that there is PRN ativan available. Continue higher doses of steroids. Prone if able. 05/12/21: Patient may need something longer acting for anxiety. Per chart has not gotten any ativan in days. Would be ok with either buspar or low dose klonopin bid. COntinue higher doses of steroids as patient seems to be responding. Prone if possible. 05/11/21: Continue high doses of steroids and continue to wean for sats >88%. Please encourage proning. 05/10/21: Will continue this dose of steroid at least through the weekend and assess for improvement. will speak with RT about aggressive weaning. Full dose anticoagulation continues. Very very guarded to poor prognosis. 05/09/21: Going to consider increasing steroids to 125q8, maybe as early as eitan rrow. continue full dose anticoagulation. 05/08/21: Continue anticoagulation and steroids. Prone if possible. Anxiety control. No objection to CTA if this can happen. Very very guarded prognosis. 05/07/21: Spoke with IMS, not opposed to full dose anticoagulation. If patient goes back on NRB HFNC combo may need to consider restarting PPN again. Encourage proning. Guarded prognosis. 05/06/21: Continue to wean FiO2 and flow for sats >88%. Tolerating diet now so will stop PPN. Continue anxiety control. Continue IV steroids. Would not object to transfer to COVID floor if bed available. Not sure why she was titrated back up to 100% from 85 as all sats documented in the RT's notes were acceptable. Same for under vital signs as well. 05/03/21: Set back last night from yesterday. Continue bipap therapy for now and attempt HFNC maybe later this afternoon. Continue to use PRN ativan but may need to schedule as she likely took off mask from anxiety. Continue IV steroids. Hold on transfer to COVID Floor. 05/02/21: Continue to wean FiO2 as tolerated for sats >88%. Will continue bipap at night. Patient has no funding so not a candidate for LTACH. Given that she has been stable and not requiring the combo of HFNC and NRB, will consider moving to COVID floor. 05/01/21: Continue to wean FiO2 for sats >88%. A sat of 90 is more than acceptable and oxygen should not be increased for this unless patient desats and remains at a sat lower than 88. Bipap at night to give some form of relief and HFNC during the day. Currently on just this alone which is improvement. Ok with daily diuresis but must monitor renal function and BP closely. She was over diuresed last week and we ended up giving fluid back. Prognosis remains guarded. 04/30/21: Will start CLinimix today for nutritional support, without electrolytes. Check labs in am. Prone if able. Continue precedx for anxiety. Very very guarded prognosis. Attempting our best to not intubate. 04/29/21: Continue precedex. Continue IV solumedrol. Prone if able. Guarded prognosis. 04/28/21: Continue Precedex. Picc team attempting to place line now. Stable on Bipap. Ordered steroids IV solumedrol to start today. Prognosis remains guarded, still at very high risk for intubation. 04/27/21: Hypotension improving/improved. Hold on any further lasix dosing. Continue precedex to help with anxeity. later today please attempt HFNC with NRB if needed. Attempt to feed if possible. Steroids end today, please order solumedrol 40q8 to start tomorrow (04/28/21). guarded prognosis. 04/26/21: Hypotension today, most likely from precedex use and diuresis that I did the last several days. Will bolus again today. Consider midodrine if BP does not respond. 04/25/21: Lasix again today. Keep PRN ativan for now. Hold on precedex for now. Guarded prognosis. Labs ordered for tomorrow. 04/24/21: Lasix today. Will also start patient on low dose PRN ativan. If this does not help will then try precedex. Guarded prognosis. 04/23/21: Prone as tolerated. No lasix today. Continue decadron. Guarded prognosis. High risk for intubation and high mortality with intubation. 04/19/21: Prone as tolerated during the day and sleep prone at night. Continue IV remdesivir and steroids. Did get actemra. Guarded prognosis. 1. Daily net negative state 2. Prone if possible 3. IV remdesivir. 4. Should be a candidate for Actemra 5. IV steroids 6. Guarded Prognosis Subjective Date of service: 07/09/21 Principal diagnosis: Covid-19 Interval history: No acute events. Still on 40 and 100 but off bipap now. Objective Vital Signs - 12hr 07/09/21 07/09/21 07/09/21 05:19 05:21 08:00 Temperature 98.3 F Pulse Rate 92 H Respiratory 22 Rate Blood Pressure 117/70 O2 Sat by Pulse 98 97 96 Oximetry Constitutional: no acute distress, alert Eyes: non-icteric ENT: oropharynx moist Neck: supple Effort: normal Ascultation: Bilateral: diminished breath sounds Cardiovascular: regular rate and rhythm Gastrointestinal: normoactive bowel sounds, soft, non-tender, non-distended Integumentary: normal Extremities: no cyanosis, no edema, pink and warm Neurologic: normal mental status, non-focal exam, pupils equal and round, CN II- XII normal Psychiatric: mood appropriate, affect normal CBC and BMP: 07/09/21 04:45 07/09/21 04:45 ABG, PT/INR, D-dimer: ABG ABG pH 7.403 pH Units (7.350-7.450) 05/14/21 02:23 POC ABG pCO2 45.4 mmHg (32.0-48.0) 05/03/21 04:49 ABG pCO2 50.2 mm Hg 05/14/21 02:23 POC ABG pO2 65.3 mmHg (83-108) L 05/03/21 04:49 ABG pO2 130.3 mm Hg (80.0-90.0) H 05/14/21 02:23 POC ABG HCO3 18.5 05/03/21 04:49 ABG O2 Saturation 98.5 % (95.0-99.0) 05/14/21 02:23 PT/INR, D-dimer D-Dimer 638.35 ng/mlDDU (0-234) H 07/09/21 04:45 Abnormal lab findings: Abnormal Labs 04/16/21 04/16/21 04/16/21 11:42 11:42 11:42 WBC MCH MCHC RDW 16.1 H Lymph % (Auto) 7.8 L Lymph # (Auto) 0.8 L [place] # (Auto) Baso # (Auto) Seg Neutrophils % 87.7 H Seg Neuts % (Manual) Lymphocytes % (Manual) Seg Neutrophils # 8.5 H Seg Neutrophils # Man Lymphocytes # (Manual) D-Dimer 338.70 H ABG pH POC ABG pO2 ABG pO2 ABG HCO3 ABG O2 Saturation ABG Base Excess ABG Oxyhemoglobin ABG Sodium ABG Chloride ABG Glucose Oxyhemoglobin Carboxyhemoglobin Sodium Potassium Chloride Carbon Dioxide BUN Creatinine Glucose 194 H POC Glucose Hemoglobin A1c Ferritin AST ALT Alkaline Phosphatase Lactate Dehydrogenase C-Reactive Protein Total Protein 8.4 H Albumin 3.8 L Arterial Blood Glucose Coronavirus (PCR) 04/16/21 04/16/21 04/17/21 11:42 11:42 03:50 WBC MCH MCHC RDW 16.0 H Lymph % (Auto) 7.7 L Lymph # (Auto) 0.6 L [place] # (Auto) Baso # (Auto) Seg Neutrophils % 89.8 H Seg Neuts % (Manual) Lymphocytes % (Manual) Seg Neutrophils # Seg Neutrophils # Man Lymphocytes # (Manual) D-Dimer ABG pH POC ABG pO2 ABG pO2 ABG HCO3 ABG O2 Saturation ABG Base Excess ABG Oxyhemoglobin ABG Sodium ABG Chloride ABG Glucose Oxyhemoglobin Carboxyhemoglobin Sodium Potassium Chloride Carbon Dioxide BUN Creatinine Glucose 195 H POC Glucose Hemoglobin A1c Ferritin 254.3 H AST ALT Alkaline Phosphatase Lactate Dehydrogenase 359 H C-Reactive Protein 15.20 H Total Protein Albumin Arterial Blood Glucose Coronavirus (PCR) 04/17/21 04/17/21 04/17/21 03:50 08:26 08:26 WBC MCH MCHC RDW Lymph % (Auto) Lymph # (Auto) [place] # (Auto) Baso # (Auto) Seg Neutrophils % Seg Neuts % (Manual) Lymphocytes % (Manual) Seg Neutrophils # Seg Neutrophils # Man Lymphocytes # (Manual) D-Dimer 262.48 H ABG pH POC ABG pO2 ABG pO2 ABG HCO3 ABG O2 Saturation ABG Base Excess ABG Oxyhemoglobin ABG Sodium ABG Chloride ABG Glucose Oxyhemoglobin Carboxyhemoglobin Sodium Potassium Chloride Carbon Dioxide BUN 20 H Creatinine 0.5 L Glucose 249 H 225 H POC Glucose Hemoglobin A1c Ferritin AST ALT Alkaline Phosphatase Lactate Dehydrogenase 338 H C-Reactive Protein 17.20 H Total Protein Albumin 3.2 L Arterial Blood Glucose Coronavirus (PCR) 04/17/21 04/17/21 04/17/21 08:26 15:04 Unknown WBC MCH MCHC RDW Lymph % (Auto) Lymph # (Auto) [place] # (Auto) Baso # (Auto) Seg Neutrophils % Seg Neuts % (Manual) Lymphocytes % (Manual) Seg Neutrophils # Seg Neutrophils # Man Lymphocytes # (Manual) D-Dimer ABG pH POC ABG pO2 ABG pO2 ABG HCO3 ABG O2 Saturation ABG Base Excess ABG Oxyhemoglobin ABG Sodium ABG Chloride ABG Glucose Oxyhemoglobin Carboxyhemoglobin Sodium Potassium Chloride Carbon Dioxide BUN 20 H Creatinine 0.5 L Glucose 246 H POC Glucose Hemoglobin A1c Ferritin 392.0 H AST ALT Alkaline Phosphatase Lactate Dehydrogenase C-Reactive Protein Total Protein 8.3 H Albumin 3.1 L Arterial Blood Glucose Coronavirus (PCR) Positive A 04/18/21 04/18/21 04/18/21 05:06 05:06 07:36 WBC 11.6 H MCH MCHC RDW 16.1 H Lymph % (Auto) Lymph # (Auto) [place] # (Auto) Baso # (Auto) Seg Neutrophils % Seg Neuts % (Manual) Lymphocytes % (Manual) Seg Neutrophils # Seg Neutrophils # Man Lymphocytes # (Manual) D-Dimer ABG pH POC ABG pO2 ABG pO2 ABG HCO3 ABG O2 Saturation ABG Base Excess ABG Oxyhemoglobin ABG Sodium ABG Chloride ABG Glucose Oxyhemoglobin Carboxyhemoglobin Sodium Potassium 5.2 H Chloride Carbon Dioxide BUN 22 H Creatinine 0.5 L Glucose 315 H POC Glucose Hemoglobin A1c 8.5 H Ferritin AST ALT Alkaline Phosphatase Lactate Dehydrogenase C-Reactive Protein Total Protein Albumin 3.3 L Arterial Blood Glucose Coronavirus (PCR) 04/18/21 04/18/21 04/18/21 11:59 16:43 23:24 WBC MCH MCHC RDW Lymph % (Auto) Lymph # (Auto) [place] # (Auto) Baso # (Auto) Seg Neutrophils % Seg Neuts % (Manual) Lymphocytes % (Manual) Seg Neutrophils # Seg Neutrophils # Man Lymphocytes # (Manual) D-Dimer ABG pH POC ABG pO2 ABG pO2 ABG HCO3 ABG O2 Saturation ABG Base Excess ABG Oxyhemoglobin ABG Sodium ABG Chloride ABG Glucose Oxyhemoglobin Carboxyhemoglobin Sodium Potassium Chloride Carbon Dioxide BUN Creatinine Glucose POC Glucose 284 H 273 H 290 H Hemoglobin A1c Ferritin AST ALT Alkaline Phosphatase Lactate Dehydrogenase C-Reactive Protein Total Protein Albumin Arterial Blood Glucose Coronavirus (PCR) 04/19/21 04/19/21 04/19/21 04:19 04:19 08:10 WBC MCH MCHC RDW 15.7 H Lymph % (Auto) Lymph # (Auto) [place] # (Auto) Baso # (Auto) Seg Neutrophils % Seg Neuts % (Manual) Lymphocytes % (Manual) Seg Neutrophils # Seg Neutrophils # Man Lymphocytes # (Manual) D-Dimer ABG pH POC ABG pO2 ABG pO2 ABG HCO3 ABG O2 Saturation ABG Base Excess ABG Oxyhemoglobin ABG Sodium ABG Chloride ABG Glucose Oxyhemoglobin Carboxyhemoglobin Sodium Potassium Chloride Carbon Dioxide BUN 27 H Creatinine 0.4 L Glucose 184 H POC Glucose 194 H Hemoglobin A1c Ferritin AST ALT Alkaline Phosphatase Lactate Dehydrogenase C-Reactive Protein Total Protein Albumin 3.1 L Arterial Blood Glucose Coronavirus (PCR) 04/19/21 04/19/21 04/19/21 11:38 16:25 22:04 WBC MCH MCHC RDW Lymph % (Auto) Lymph # (Auto) [place] # (Auto) Baso # (Auto) Seg Neutrophils % Seg Neuts % (Manual) Lymphocytes % (Manual) Seg Neutrophils # Seg Neutrophils # Man Lymphocytes # (Manual) D-Dimer ABG pH POC ABG pO2 ABG pO2 ABG HCO3 ABG O2 Saturation ABG Base Excess ABG Oxyhemoglobin ABG Sodium ABG Chloride ABG Glucose Oxyhemoglobin Carboxyhemoglobin Sodium Potassium Chloride Carbon Dioxide BUN Creatinine Glucose POC Glucose 224 H 297 H 251 H Hemoglobin A1c Ferritin AST ALT Alkaline Phosphatase Lactate Dehydrogenase C-Reactive Protein Total Protein Albumin Arterial Blood Glucose Coronavirus (PCR) 04/20/21 04/20/21 04/20/21 05:28 08:43 16:21 WBC MCH MCHC RDW Lymph % (Auto) Lymph # (Auto) [place] # (Auto) Baso # (Auto) Seg Neutrophils % Seg Neuts % (Manual) Lymphocytes % (Manual) Seg Neutrophils # Seg Neutrophils # Man Lymphocytes # (Manual) D-Dimer ABG pH POC ABG pO2 ABG pO2 ABG HCO3 ABG O2 Saturation ABG Base Excess ABG Oxyhemoglobin ABG Sodium ABG Chloride ABG Glucose Oxyhemoglobin Carboxyhemoglobin Sodium Potassium Chloride Carbon Dioxide BUN 27 H Creatinine Glucose 192 H POC Glucose 173 H 253 H Hemoglobin A1c Ferritin AST ALT Alkaline Phosphatase Lactate Dehydrogenase C-Reactive Protein Total Protein Albumin 3.0 L Arterial Blood Glucose Coronavirus (PCR) 04/21/21 04/21/21 04/21/21 07:58 12:05 16:08 WBC MCH MCHC RDW Lymph % (Auto) Lymph # (Auto) [place] # (Auto) Baso # (Auto) Seg Neutrophils % Seg Neuts % (Manual) Lymphocytes % (Manual) Seg Neutrophils # Seg Neutrophils # Man Lymphocytes # (Manual) D-Dimer ABG pH POC ABG pO2 ABG pO2 ABG HCO3 ABG O2 Saturation ABG Base Excess ABG Oxyhemoglobin ABG Sodium ABG Chloride ABG Glucose Oxyhemoglobin Carboxyhemoglobin Sodium Potassium Chloride Carbon Dioxide BUN Creatinine Glucose POC Glucose 140 H 252 H 214 H Hemoglobin A1c Ferritin AST ALT Alkaline Phosphatase Lactate Dehydrogenase C-Reactive Protein Total Protein Albumin Arterial Blood Glucose Coronavirus (PCR) 04/21/21 04/22/21 04/22/21 21:42 08:37 12:01 WBC MCH MCHC RDW Lymph % (Auto) Lymph # (Auto) [place] # (Auto) Baso # (Auto) Seg Neutrophils % Seg Neuts % (Manual) Lymphocytes % (Manual) Seg Neutrophils # Seg Neutrophils # Man Lymphocytes # (Manual) D-Dimer ABG pH 7.457 H POC ABG pO2 49.4 L ABG pO2 ABG HCO3 ABG O2 Saturation ABG Base Excess ABG Oxyhemoglobin 85.6 L ABG Sodium ABG Chloride ABG Glucose 121 H Oxyhemoglobin Carboxyhemoglobin 0.3 L Sodium Potassium Chloride Carbon Dioxide BUN Creatinine Glucose POC Glucose 162 H 227 H Hemoglobin A1c Ferritin AST ALT Alkaline Phosphatase Lactate Dehydrogenase C-Reactive Protein Total Protein Albumin Arterial Blood Glucose 121 H Coronavirus (PCR) 04/22/21 04/22/21 04/23/21 16:26 22:23 04:52 WBC MCH MCHC RDW 15.7 H Lymph % (Auto) Lymph # (Auto) [place] # (Auto) Baso # (Auto) Seg Neutrophils % Seg Neuts % (Manual) Lymphocytes % (Manual) Seg Neutrophils # Seg Neutrophils # Man Lymphocytes # (Manual) D-Dimer ABG pH POC ABG pO2 ABG pO2 ABG HCO3 ABG O2 Saturation ABG Base Excess ABG Oxyhemoglobin ABG Sodium ABG Chloride ABG Glucose Oxyhemoglobin Carboxyhemoglobin Sodium Potassium Chloride Carbon Dioxide BUN Creatinine Glucose POC Glucose 200 H 136 H Hemoglobin A1c Ferritin AST ALT Alkaline Phosphatase Lactate Dehydrogenase C-Reactive Protein Total Protein Albumin Arterial Blood Glucose Coronavirus (PCR) 04/23/21 04/23/21 04/23/21 04:52 12:06 17:41 WBC MCH MCHC RDW Lymph % (Auto) Lymph # (Auto) [place] # (Auto) Baso # (Auto) Seg Neutrophils % Seg Neuts % (Manual) Lymphocytes % (Manual) Seg Neutrophils # Seg Neutrophils # Man Lymphocytes # (Manual) D-Dimer ABG pH POC ABG pO2 ABG pO2 ABG HCO3 ABG O2 Saturation ABG Base Excess ABG Oxyhemoglobin ABG Sodium ABG Chloride ABG Glucose Oxyhemoglobin Carboxyhemoglobin Sodium 136 L Potassium Chloride 97.7 L Carbon Dioxide BUN 23 H Creatinine Glucose 101 H POC Glucose 202 H 169 H Hemoglobin A1c Ferritin AST 46 H ALT Alkaline Phosphatase Lactate Dehydrogenase C-Reactive Protein Total Protein Albumin 3.3 L Arterial Blood Glucose Coronavirus (PCR) 04/23/21 04/24/21 04/24/21 23:08 05:17 08:38 WBC MCH MCHC RDW Lymph % (Auto) Lymph # (Auto) [place] # (Auto) Baso # (Auto) Seg Neutrophils % Seg Neuts % (Manual) Lymphocytes % (Manual) Seg Neutrophils # Seg Neutrophils # Man Lymphocytes # (Manual) D-Dimer ABG pH POC ABG pO2 ABG pO2 ABG HCO3 ABG O2 Saturation ABG Base Excess ABG Oxyhemoglobin ABG Sodium ABG Chloride ABG Glucose Oxyhemoglobin Carboxyhemoglobin Sodium Potassium Chloride Carbon Dioxide BUN Creatinine Glucose POC Glucose 111 H 108 H 126 H Hemoglobin A1c Ferritin AST ALT Alkaline Phosphatase Lactate Dehydrogenase C-Reactive Protein Total Protein Albumin Arterial Blood Glucose Coronavirus (PCR) 04/24/21 04/24/21 04/24/21 11:54 17:57 21:23 WBC MCH MCHC RDW Lymph % (Auto) Lymph # (Auto) [place] # (Auto) Baso # (Auto) Seg Neutrophils % Seg Neuts % (Manual) Lymphocytes % (Manual) Seg Neutrophils # Seg Neutrophils # Man Lymphocytes # (Manual) D-Dimer ABG pH POC ABG pO2 ABG pO2 ABG HCO3 ABG O2 Saturation ABG Base Excess ABG Oxyhemoglobin ABG Sodium ABG Chloride ABG Glucose Oxyhemoglobin Carboxyhemoglobin Sodium Potassium Chloride Carbon Dioxide BUN Creatinine Glucose POC Glucose 147 H 177 H 138 H Hemoglobin A1c Ferritin AST ALT Alkaline Phosphatase Lactate Dehydrogenase C-Reactive Protein Total Protein Albumin Arterial Blood Glucose Coronavirus (PCR) 04/25/21 04/25/21 04/25/21 07:06 11:23 15:43 WBC MCH MCHC RDW Lymph % (Auto) Lymph # (Auto) [place] # (Auto) Baso # (Auto) Seg Neutrophils % Seg Neuts % (Manual) Lymphocytes % (Manual) Seg Neutrophils # Seg Neutrophils # Man Lymphocytes # (Manual) D-Dimer ABG pH POC ABG pO2 ABG pO2 ABG HCO3 ABG O2 Saturation ABG Base Excess ABG Oxyhemoglobin ABG Sodium ABG Chloride ABG Glucose Oxyhemoglobin Carboxyhemoglobin Sodium Potassium Chloride Carbon Dioxide BUN Creatinine Glucose POC Glucose 147 H 169 H 227 H Hemoglobin A1c Ferritin AST ALT Alkaline Phosphatase Lactate Dehydrogenase C-Reactive Protein Total Protein Albumin Arterial Blood Glucose Coronavirus (PCR) 04/25/21 04/26/21 04/26/21 21:22 02:45 05:15 WBC MCH MCHC RDW Lymph % (Auto) Lymph # (Auto) [place] # (Auto) Baso # (Auto) Seg Neutrophils % Seg Neuts % (Manual) Lymphocytes % (Manual) Seg Neutrophils # Seg Neutrophils # Man Lymphocytes # (Manual) D-Dimer ABG pH POC ABG pO2 70.7 L ABG pO2 ABG HCO3 ABG O2 Saturation ABG Base Excess ABG Oxyhemoglobin 93.0 L ABG Sodium 132.7 L ABG Chloride ABG Glucose 115 H Oxyhemoglobin Carboxyhemoglobin Sodium Potassium Chloride 95.8 L Carbon Dioxide 32 H BUN 20 H Creatinine Glucose 102 H POC Glucose 196 H Hemoglobin A1c Ferritin AST ALT Alkaline Phosphatase Lactate Dehydrogenase C-Reactive Protein Total Protein Albumin Arterial Blood Glucose 115 H Coronavirus (PCR) 04/26/21 04/26/21 04/26/21 11:49 16:09 21:07 WBC MCH MCHC RDW Lymph % (Auto) Lymph # (Auto) [place] # (Auto) Baso # (Auto) Seg Neutrophils % Seg Neuts % (Manual) Lymphocytes % (Manual) Seg Neutrophils # Seg Neutrophils # Man Lymphocytes # (Manual) D-Dimer ABG pH POC ABG pO2 ABG pO2 ABG HCO3 ABG O2 Saturation ABG Base Excess ABG Oxyhemoglobin ABG Sodium ABG Chloride ABG Glucose Oxyhemoglobin Carboxyhemoglobin Sodium Potassium Chloride Carbon Dioxide BUN Creatinine Glucose POC Glucose 114 H 188 H 136 H Hemoglobin A1c Ferritin AST ALT Alkaline Phosphatase Lactate Dehydrogenase C-Reactive Protein Total Protein Albumin Arterial Blood Glucose Coronavirus (PCR) 04/27/21 04/27/21 04/28/21 17:34 22:12 08:26 WBC MCH MCHC RDW Lymph % (Auto) Lymph # (Auto) [place] # (Auto) Baso # (Auto) Seg Neutrophils % Seg Neuts % (Manual) Lymphocytes % (Manual) Seg Neutrophils # Seg Neutrophils # Man Lymphocytes # (Manual) D-Dimer ABG pH POC ABG pO2 ABG pO2 ABG HCO3 ABG O2 Saturation ABG Base Excess ABG Oxyhemoglobin ABG Sodium ABG Chloride ABG Glucose Oxyhemoglobin Carboxyhemoglobin Sodium Potassium Chloride Carbon Dioxide BUN Creatinine Glucose POC Glucose 128 H 159 H 69 L Hemoglobin A1c Ferritin AST ALT Alkaline Phosphatase Lactate Dehydrogenase C-Reactive Protein Total Protein Albumin Arterial Blood Glucose Coronavirus (PCR) 04/28/21 04/28/21 04/29/21 12:22 21:11 06:05 WBC MCH MCHC RDW Lymph % (Auto) Lymph # (Auto) [place] # (Auto) Baso # (Auto) Seg Neutrophils % Seg Neuts % (Manual) Lymphocytes % (Manual) Seg Neutrophils # Seg Neutrophils # Man Lymphocytes # (Manual) D-Dimer ABG pH POC ABG pO2 ABG pO2 ABG HCO3 ABG O2 Saturation ABG Base Excess ABG Oxyhemoglobin ABG Sodium ABG Chloride ABG Glucose Oxyhemoglobin Carboxyhemoglobin Sodium 132 L Potassium Chloride 94.4 L Carbon Dioxide BUN Creatinine 0.2 L D Glucose 140 H POC Glucose 141 H 171 H Hemoglobin A1c Ferritin AST ALT Alkaline Phosphatase Lactate Dehydrogenase C-Reactive Protein Total Protein Albumin Arterial Blood Glucose Coronavirus (PCR) 04/29/21 04/29/21 04/29/21 06:05 07:24 11:36 WBC MCH MCHC 35 H RDW 15.9 H Lymph % (Auto) Lymph # (Auto) [place] # (Auto) Baso # (Auto) Seg Neutrophils % Seg Neuts % (Manual) Lymphocytes % (Manual) Seg Neutrophils # Seg Neutrophils # Man Lymphocytes # (Manual) D-Dimer ABG pH POC ABG pO2 ABG pO2 ABG HCO3 ABG O2 Saturation ABG Base Excess ABG Oxyhemoglobin ABG Sodium ABG Chloride ABG Glucose Oxyhemoglobin Carboxyhemoglobin Sodium Potassium Chloride Carbon Dioxide BUN Creatinine Glucose POC Glucose 141 H 220 H Hemoglobin A1c Ferritin AST ALT Alkaline Phosphatase Lactate Dehydrogenase C-Reactive Protein Total Protein Albumin Arterial Blood Glucose Coronavirus (PCR) 04/29/21 04/29/21 04/29/21 14:23 15:30 17:06 WBC MCH MCHC RDW Lymph % (Auto) Lymph # (Auto) [place] # (Auto) Baso # (Auto) Seg Neutrophils % Seg Neuts % (Manual) Lymphocytes % (Manual) Seg Neutrophils # Seg Neutrophils # Man Lymphocytes # (Manual) D-Dimer ABG pH POC ABG pO2 ABG pO2 52.6 L ABG HCO3 ABG O2 Saturation 86.4 L ABG Base Excess ABG Oxyhemoglobin ABG Sodium ABG Chloride ABG Glucose Oxyhemoglobin 84.6 L Carboxyhemoglobin Sodium Potassium Chloride Carbon Dioxide BUN Creatinine Glucose POC Glucose 173 H 158 H Hemoglobin A1c Ferritin AST ALT Alkaline Phosphatase Lactate Dehydrogenase C-Reactive Protein Total Protein Albumin Arterial Blood Glucose Coronavirus (PCR) 04/29/21 04/30/21 04/30/21 21:27 07:16 08:00 WBC MCH MCHC RDW 16.1 H Lymph % (Auto) Lymph # (Auto) [place] # (Auto) Baso # (Auto) Seg Neutrophils % Seg Neuts % (Manual) Lymphocytes % (Manual) Seg Neutrophils # Seg Neutrophils # Man Lymphocytes # (Manual) D-Dimer ABG pH POC ABG pO2 ABG pO2 ABG HCO3 ABG O2 Saturation ABG Base Excess ABG Oxyhemoglobin ABG Sodium ABG Chloride ABG Glucose Oxyhemoglobin Carboxyhemoglobin Sodium Potassium Chloride Carbon Dioxide BUN Creatinine Glucose POC Glucose 244 H 175 H Hemoglobin A1c Ferritin AST ALT Alkaline Phosphatase Lactate Dehydrogenase C-Reactive Protein Total Protein Albumin Arterial Blood Glucose Coronavirus (PCR) 04/30/21 04/30/21 04/30/21 08:00 08:00 11:03 WBC MCH MCHC RDW Lymph % (Auto) Lymph # (Auto) [place] # (Auto) Baso # (Auto) Seg Neutrophils % Seg Neuts % (Manual) Lymphocytes % (Manual) Seg Neutrophils # Seg Neutrophils # Man Lymphocytes # (Manual) D-Dimer 1796.87 H ABG pH POC ABG pO2 ABG pO2 ABG HCO3 ABG O2 Saturation ABG Base Excess ABG Oxyhemoglobin ABG Sodium ABG Chloride ABG Glucose Oxyhemoglobin Carboxyhemoglobin Sodium 135 L Potassium Chloride 96.3 L Carbon Dioxide BUN Creatinine 0.2 L Glucose 153 H POC Glucose 183 H Hemoglobin A1c Ferritin AST 41 H ALT 76 H Alkaline Phosphatase 160 H Lactate Dehydrogenase 522 H C-Reactive Protein Total Protein 6.1 L Albumin 3.1 L Arterial Blood Glucose Coronavirus (PCR) 04/30/21 04/30/21 05/01/21 17:04 22:17 05:39 WBC MCH MCHC RDW Lymph % (Auto) Lymph # (Auto) [place] # (Auto) Baso # (Auto) Seg Neutrophils % Seg Neuts % (Manual) Lymphocytes % (Manual) Seg Neutrophils # Seg Neutrophils # Man Lymphocytes # (Manual) D-Dimer ABG pH POC ABG pO2 ABG pO2 ABG HCO3 ABG O2 Saturation ABG Base Excess ABG Oxyhemoglobin ABG Sodium ABG Chloride ABG Glucose Oxyhemoglobin Carboxyhemoglobin Sodium 133 L Potassium Chloride 92.1 L Carbon Dioxide BUN 24 H Creatinine 0.4 L D Glucose 269 H POC Glucose 167 H 208 H Hemoglobin A1c Ferritin AST ALT 66 H Alkaline Phosphatase 142 H Lactate Dehydrogenase C-Reactive Protein Total Protein Albumin 3.2 L Arterial Blood Glucose Coronavirus (PCR) 05/01/21 05/01/21 05/01/21 05:39 05:39 07:45 WBC MCH MCHC RDW 16.0 H Lymph % (Auto) Lymph # (Auto) [place] # (Auto) Baso # (Auto) Seg Neutrophils % Seg Neuts % (Manual) Lymphocytes % (Manual) Seg Neutrophils # Seg Neutrophils # Man Lymphocytes # (Manual) D-Dimer 3984.95 H ABG pH POC ABG pO2 ABG pO2 ABG HCO3 ABG O2 Saturation ABG Base Excess ABG Oxyhemoglobin ABG Sodium ABG Chloride ABG Glucose Oxyhemoglobin Carboxyhemoglobin Sodium Potassium Chloride Carbon Dioxide BUN Creatinine Glucose POC Glucose 229 H Hemoglobin A1c Ferritin AST ALT Alkaline Phosphatase Lactate Dehydrogenase C-Reactive Protein Total Protein Albumin Arterial Blood Glucose Coronavirus (PCR) 05/01/21 05/01/21 05/01/21 12:10 15:46 21:06 WBC MCH MCHC RDW Lymph % (Auto) Lymph # (Auto) [place] # (Auto) Baso # (Auto) Seg Neutrophils % Seg Neuts % (Manual) Lymphocytes % (Manual) Seg Neutrophils # Seg Neutrophils # Man Lymphocytes # (Manual) D-Dimer ABG pH POC ABG pO2 ABG pO2 ABG HCO3 ABG O2 Saturation ABG Base Excess ABG Oxyhemoglobin ABG Sodium ABG Chloride ABG Glucose Oxyhemoglobin Carboxyhemoglobin Sodium Potassium Chloride Carbon Dioxide BUN Creatinine Glucose POC Glucose 296 H 279 H 232 H Hemoglobin A1c Ferritin AST ALT Alkaline Phosphatase Lactate Dehydrogenase C-Reactive Protein Total Protein Albumin Arterial Blood Glucose Coronavirus (PCR) 05/02/21 05/02/21 05/02/21 04:55 04:55 04:55 WBC MCH MCHC RDW 16.1 H Lymph % (Auto) Lymph # (Auto) [place] # (Auto) Baso # (Auto) Seg Neutrophils % Seg Neuts % (Manual) Lymphocytes % (Manual) Seg Neutrophils # Seg Neutrophils # Man Lymphocytes # (Manual) D-Dimer 1401.08 H ABG pH POC ABG pO2 ABG pO2 ABG HCO3 ABG O2 Saturation ABG Base Excess ABG Oxyhemoglobin ABG Sodium ABG Chloride ABG Glucose Oxyhemoglobin Carboxyhemoglobin Sodium 131 L Potassium Chloride 95.5 L Carbon Dioxide BUN 20 H Creatinine 0.3 L Glucose 288 H POC Glucose Hemoglobin A1c Ferritin AST ALT Alkaline Phosphatase Lactate Dehydrogenase C-Reactive Protein Total Protein 6.0 L Albumin 3.1 L Arterial Blood Glucose Coronavirus (PCR) 05/02/21 05/02/21 05/02/21 07:53 11:45 15:25 WBC MCH MCHC RDW Lymph % (Auto) Lymph # (Auto) [place] # (Auto) Baso # (Auto) Seg Neutrophils % Seg Neuts % (Manual) Lymphocytes % (Manual) Seg Neutrophils # Seg Neutrophils # Man Lymphocytes # (Manual) D-Dimer ABG pH POC ABG pO2 ABG pO2 ABG HCO3 ABG O2 Saturation ABG Base Excess ABG Oxyhemoglobin ABG Sodium ABG Chloride ABG Glucose Oxyhemoglobin Carboxyhemoglobin Sodium Potassium Chloride Carbon Dioxide BUN Creatinine Glucose POC Glucose 180 H 228 H 275 H Hemoglobin A1c Ferritin AST ALT Alkaline Phosphatase Lactate Dehydrogenase C-Reactive Protein Total Protein Albumin Arterial Blood Glucose Coronavirus (PCR) 05/02/21 05/03/21 05/03/21 22:56 04:30 04:49 WBC MCH MCHC RDW Lymph % (Auto) Lymph # (Auto) [place] # (Auto) Baso # (Auto) Seg Neutrophils % Seg Neuts % (Manual) Lymphocytes % (Manual) Seg Neutrophils # Seg Neutrophils # Man Lymphocytes # (Manual) D-Dimer ABG pH 7.229 L POC ABG pO2 65.3 L ABG pO2 ABG HCO3 ABG O2 Saturation ABG Base Excess ABG Oxyhemoglobin 87.8 L ABG Sodium 133.0 L ABG Chloride 97.0 L ABG Glucose 403 H Oxyhemoglobin Carboxyhemoglobin Sodium 130 L Potassium Chloride 94.9 L Carbon Dioxide BUN 20 H Creatinine 0.5 L D Glucose 359 H POC Glucose 293 H Hemoglobin A1c Ferritin AST 54 H ALT 75 H Alkaline Phosphatase 138 H Lactate Dehydrogenase C-Reactive Protein Total Protein Albumin 3.6 L Arterial Blood Glucose 403 H Coronavirus (PCR) 05/03/21 05/03/21 05/03/21 05:27 11:26 17:57 WBC MCH MCHC RDW Lymph % (Auto) Lymph # (Auto) [place] # (Auto) Baso # (Auto) Seg Neutrophils % Seg Neuts % (Manual) Lymphocytes % (Manual) Seg Neutrophils # Seg Neutrophils # Man Lymphocytes # (Manual) D-Dimer ABG pH POC ABG pO2 ABG pO2 ABG HCO3 ABG O2 Saturation ABG Base Excess ABG Oxyhemoglobin ABG Sodium ABG Chloride ABG Glucose Oxyhemoglobin Carboxyhemoglobin Sodium Potassium Chloride Carbon Dioxide BUN Creatinine Glucose POC Glucose 361 H 297 H 226 H Hemoglobin A1c Ferritin AST ALT Alkaline Phosphatase Lactate Dehydrogenase C-Reactive Protein Total Protein Albumin Arterial Blood Glucose Coronavirus (PCR) 05/03/21 05/04/21 05/04/21 23:12 05:12 07:30 WBC MCH MCHC RDW Lymph % (Auto) Lymph # (Auto) [place] # (Auto) Baso # (Auto) Seg Neutrophils % Seg Neuts % (Manual) Lymphocytes % (Manual) Seg Neutrophils # Seg Neutrophils # Man Lymphocytes # (Manual) D-Dimer ABG pH POC ABG pO2 ABG pO2 ABG HCO3 ABG O2 Saturation ABG Base Excess ABG Oxyhemoglobin ABG Sodium ABG Chloride ABG Glucose Oxyhemoglobin Carboxyhemoglobin Sodium Potassium Chloride Carbon Dioxide BUN Creatinine Glucose POC Glucose 282 H 285 H 254 H Hemoglobin A1c Ferritin AST ALT Alkaline Phosphatase Lactate Dehydrogenase C-Reactive Protein Total Protein Albumin Arterial Blood Glucose Coronavirus (PCR) 05/04/21 05/04/21 05/04/21 08:58 11:45 16:07 WBC MCH MCHC RDW Lymph % (Auto) Lymph # (Auto) [place] # (Auto) Baso # (Auto) Seg Neutrophils % Seg Neuts % (Manual) Lymphocytes % (Manual) Seg Neutrophils # Seg Neutrophils # Man Lymphocytes # (Manual) D-Dimer ABG pH POC ABG pO2 ABG pO2 ABG HCO3 ABG O2 Saturation ABG Base Excess ABG Oxyhemoglobin ABG Sodium ABG Chloride ABG Glucose Oxyhemoglobin Carboxyhemoglobin Sodium 134 L Potassium Chloride Carbon Dioxide BUN 20 H Creatinine 0.3 L Glucose 267 H POC Glucose 244 H 297 H Hemoglobin A1c Ferritin AST ALT Alkaline Phosphatase Lactate Dehydrogenase C-Reactive Protein Total Protein 6.0 L Albumin 3.2 L Arterial Blood Glucose Coronavirus (PCR) 05/04/21 05/05/21 05/05/21 23:32 05:00 05:13 WBC MCH MCHC RDW Lymph % (Auto) Lymph # (Auto) [place] # (Auto) Baso # (Auto) Seg Neutrophils % Seg Neuts % (Manual) Lymphocytes % (Manual) Seg Neutrophils # Seg Neutrophils # Man Lymphocytes # (Manual) D-Dimer ABG pH POC ABG pO2 ABG pO2 ABG HCO3 ABG O2 Saturation ABG Base Excess ABG Oxyhemoglobin ABG Sodium ABG Chloride ABG Glucose Oxyhemoglobin Carboxyhemoglobin Sodium 132 L Potassium Chloride 96.4 L Carbon Dioxide BUN 22 H Creatinine 0.3 L Glucose 228 H POC Glucose 154 H 260 H Hemoglobin A1c Ferritin AST ALT 67 H Alkaline Phosphatase Lactate Dehydrogenase C-Reactive Protein Total Protein 6.1 L Albumin 3.2 L Arterial Blood Glucose Coronavirus (PCR) 05/05/21 05/05/21 05/05/21 11:32 17:49 23:07 WBC MCH MCHC RDW Lymph % (Auto) Lymph # (Auto) [place] # (Auto) Baso # (Auto) Seg Neutrophils % Seg Neuts % (Manual) Lymphocytes % (Manual) Seg Neutrophils # Seg Neutrophils # Man Lymphocytes # (Manual) D-Dimer ABG pH POC ABG pO2 ABG pO2 ABG HCO3 ABG O2 Saturation ABG Base Excess ABG Oxyhemoglobin ABG Sodium ABG Chloride ABG Glucose Oxyhemoglobin Carboxyhemoglobin Sodium Potassium Chloride Carbon Dioxide BUN Creatinine Glucose POC Glucose 279 H 308 H 213 H Hemoglobin A1c Ferritin AST ALT Alkaline Phosphatase Lactate Dehydrogenase C-Reactive Protein Total Protein Albumin Arterial Blood Glucose Coronavirus (PCR) 05/06/21 05/06/21 05/06/21 05:00 05:00 05:20 WBC MCH MCHC RDW 16.8 H Lymph % (Auto) Lymph # (Auto) [place] # (Auto) Baso # (Auto) Seg Neutrophils % Seg Neuts % (Manual) 99.0 H Lymphocytes % (Manual) Seg Neutrophils # Seg Neutrophils # Man 10.9 H Lymphocytes # (Manual) 0.0 L D-Dimer ABG pH POC ABG pO2 ABG pO2 ABG HCO3 ABG O2 Saturation ABG Base Excess ABG Oxyhemoglobin ABG Sodium ABG Chloride ABG Glucose Oxyhemoglobin Carboxyhemoglobin Sodium 133 L Potassium Chloride Carbon Dioxide BUN 21 H Creatinine 0.3 L Glucose 259 H POC Glucose 308 H Hemoglobin A1c Ferritin AST ALT Alkaline Phosphatase Lactate Dehydrogenase C-Reactive Protein Total Protein Albumin 3.2 L Arterial Blood Glucose Coronavirus (PCR) 05/06/21 05/06/21 05/06/21 11:24 17:54 21:32 WBC MCH MCHC RDW Lymph % (Auto) Lymph # (Auto) [place] # (Auto) Baso # (Auto) Seg Neutrophils % Seg Neuts % (Manual) Lymphocytes % (Manual) Seg Neutrophils # Seg Neutrophils # Man Lymphocytes # (Manual) D-Dimer ABG pH POC ABG pO2 ABG pO2 ABG HCO3 ABG O2 Saturation ABG Base Excess ABG Oxyhemoglobin ABG Sodium ABG Chloride ABG Glucose Oxyhemoglobin Carboxyhemoglobin Sodium Potassium Chloride Carbon Dioxide BUN Creatinine Glucose POC Glucose 262 H 124 H 246 H Hemoglobin A1c Ferritin AST ALT Alkaline Phosphatase Lactate Dehydrogenase C-Reactive Protein Total Protein Albumin Arterial Blood Glucose Coronavirus (PCR) 05/06/21 05/07/21 05/07/21 23:10 04:54 04:54 WBC MCH MCHC RDW Lymph % (Auto) Lymph # (Auto) [place] # (Auto) Baso # (Auto) Seg Neutrophils % Seg Neuts % (Manual) Lymphocytes % (Manual) Seg Neutrophils # Seg Neutrophils # Man Lymphocytes # (Manual) D-Dimer 1609.28 H ABG pH POC ABG pO2 ABG pO2 ABG HCO3 ABG O2 Saturation ABG Base Excess ABG Oxyhemoglobin ABG Sodium ABG Chloride ABG Glucose Oxyhemoglobin Carboxyhemoglobin Sodium 136 L Potassium Chloride Carbon Dioxide BUN 23 H Creatinine 0.3 L Glucose 110 H POC Glucose 249 H Hemoglobin A1c Ferritin AST ALT Alkaline Phosphatase Lactate Dehydrogenase C-Reactive Protein Total Protein 6.2 L Albumin 3.0 L Arterial Blood Glucose Coronavirus (PCR) 05/07/21 05/07/21 05/07/21 04:54 04:54 11:41 WBC MCH MCHC RDW Lymph % (Auto) Lymph # (Auto) [place] # (Auto) Baso # (Auto) Seg Neutrophils % Seg Neuts % (Manual) Lymphocytes % (Manual) Seg Neutrophils # Seg Neutrophils # Man Lymphocytes # (Manual) D-Dimer ABG pH POC ABG pO2 ABG pO2 ABG HCO3 ABG O2 Saturation ABG Base Excess ABG Oxyhemoglobin ABG Sodium ABG Chloride ABG Glucose Oxyhemoglobin Carboxyhemoglobin Sodium Potassium Chloride Carbon Dioxide BUN Creatinine Glucose POC Glucose 118 H Hemoglobin A1c Ferritin 296.1 H AST ALT Alkaline Phosphatase Lactate Dehydrogenase 724 H C-Reactive Protein Total Protein Albumin Arterial Blood Glucose Coronavirus (PCR) 05/07/21 05/07/21 05/08/21 16:43 22:34 06:44 WBC MCH MCHC RDW Lymph % (Auto) Lymph # (Auto) [place] # (Auto) Baso # (Auto) Seg Neutrophils % Seg Neuts % (Manual) Lymphocytes % (Manual) Seg Neutrophils # Seg Neutrophils # Man Lymphocytes # (Manual) D-Dimer ABG pH POC ABG pO2 ABG pO2 ABG HCO3 ABG O2 Saturation ABG Base Excess ABG Oxyhemoglobin ABG Sodium ABG Chloride ABG Glucose Oxyhemoglobin Carboxyhemoglobin Sodium Potassium Chloride Carbon Dioxide BUN Creatinine Glucose POC Glucose 159 H 233 H 235 H Hemoglobin A1c Ferritin AST ALT Alkaline Phosphatase Lactate Dehydrogenase C-Reactive Protein Total Protein Albumin Arterial Blood Glucose Coronavirus (PCR) 05/08/21 05/08/21 05/08/21 07:49 11:56 17:13 WBC MCH MCHC RDW Lymph % (Auto) Lymph # (Auto) [place] # (Auto) Baso # (Auto) Seg Neutrophils % Seg Neuts % (Manual) Lymphocytes % (Manual) Seg Neutrophils # Seg Neutrophils # Man Lymphocytes # (Manual) D-Dimer ABG pH POC ABG pO2 ABG pO2 ABG HCO3 ABG O2 Saturation ABG Base Excess ABG Oxyhemoglobin ABG Sodium ABG Chloride ABG Glucose Oxyhemoglobin Carboxyhemoglobin Sodium Potassium Chloride Carbon Dioxide BUN Creatinine Glucose POC Glucose 219 H 184 H 182 H Hemoglobin A1c Ferritin AST ALT Alkaline Phosphatase Lactate Dehydrogenase C-Reactive Protein Total Protein Albumin Arterial Blood Glucose Coronavirus (PCR) 05/08/21 05/09/21 05/09/21 23:35 05:20 05:20 WBC MCH MCHC RDW Lymph % (Auto) Lymph # (Auto) [place] # (Auto) Baso # (Auto) Seg Neutrophils % Seg Neuts % (Manual) Lymphocytes % (Manual) Seg Neutrophils # Seg Neutrophils # Man Lymphocytes # (Manual) D-Dimer 1003.87 H ABG pH POC ABG pO2 ABG pO2 ABG HCO3 ABG O2 Saturation ABG Base Excess ABG Oxyhemoglobin ABG Sodium ABG Chloride ABG Glucose Oxyhemoglobin Carboxyhemoglobin Sodium Potassium Chloride Carbon Dioxide BUN Creatinine Glucose POC Glucose 198 H Hemoglobin A1c Ferritin 378.7 H AST ALT Alkaline Phosphatase Lactate Dehydrogenase C-Reactive Protein Total Protein Albumin Arterial Blood Glucose Coronavirus (PCR) 05/09/21 05/09/21 05/09/21 05:20 06:04 12:53 WBC MCH MCHC RDW Lymph % (Auto) Lymph # (Auto) [place] # (Auto) Baso # (Auto) Seg Neutrophils % Seg Neuts % (Manual) Lymphocytes % (Manual) Seg Neutrophils # Seg Neutrophils # Man Lymphocytes # (Manual) D-Dimer ABG pH POC ABG pO2 ABG pO2 ABG HCO3 ABG O2 Saturation ABG Base Excess ABG Oxyhemoglobin ABG Sodium ABG Chloride ABG Glucose Oxyhemoglobin Carboxyhemoglobin Sodium Potassium Chloride Carbon Dioxide BUN Creatinine Glucose POC Glucose 159 H 180 H Hemoglobin A1c Ferritin AST ALT Alkaline Phosphatase Lactate Dehydrogenase 558 H C-Reactive Protein 2.40 H Total Protein Albumin Arterial Blood Glucose Coronavirus (PCR) 05/09/21 05/09/21 05/10/21 16:43 21:27 10:18 WBC MCH MCHC RDW Lymph % (Auto) Lymph # (Auto) [place] # (Auto) Baso # (Auto) Seg Neutrophils % Seg Neuts % (Manual) Lymphocytes % (Manual) Seg Neutrophils # Seg Neutrophils # Man Lymphocytes # (Manual) D-Dimer ABG pH POC ABG pO2 ABG pO2 ABG HCO3 ABG O2 Saturation ABG Base Excess ABG Oxyhemoglobin ABG Sodium ABG Chloride ABG Glucose Oxyhemoglobin Carboxyhemoglobin Sodium Potassium Chloride Carbon Dioxide BUN Creatinine Glucose POC Glucose 212 H 285 H 261 H Hemoglobin A1c Ferritin AST ALT Alkaline Phosphatase Lactate Dehydrogenase C-Reactive Protein Total Protein Albumin Arterial Blood Glucose Coronavirus (PCR) 05/10/21 05/10/21 05/11/21 17:58 18:02 00:29 WBC MCH MCHC RDW Lymph % (Auto) Lymph # (Auto) [place] # (Auto) Baso # (Auto) Seg Neutrophils % Seg Neuts % (Manual) Lymphocytes % (Manual) Seg Neutrophils # Seg Neutrophils # Man Lymphocytes # (Manual) D-Dimer ABG pH POC ABG pO2 ABG pO2 ABG HCO3 ABG O2 Saturation ABG Base Excess ABG Oxyhemoglobin ABG Sodium ABG Chloride ABG Glucose Oxyhemoglobin Carboxyhemoglobin Sodium Potassium Chloride Carbon Dioxide BUN Creatinine Glucose POC Glucose 213 H 179 H 149 H Hemoglobin A1c Ferritin AST ALT Alkaline Phosphatase Lactate Dehydrogenase C-Reactive Protein Total Protein Albumin Arterial Blood Glucose Coronavirus (PCR) 05/11/21 05/11/21 05/11/21 05:22 11:32 17:00 WBC 14.9 H MCH MCHC RDW 18.9 H Lymph % (Auto) 4.9 L Lymph # (Auto) 0.7 L [place] # (Auto) Baso # (Auto) 0.2 H Seg Neutrophils % Seg Neuts % (Manual) Lymphocytes % (Manual) Seg Neutrophils # 13.3 H Seg Neutrophils # Man Lymphocytes # (Manual) D-Dimer ABG pH POC ABG pO2 ABG pO2 ABG HCO3 ABG O2 Saturation ABG Base Excess ABG Oxyhemoglobin ABG Sodium ABG Chloride ABG Glucose Oxyhemoglobin Carboxyhemoglobin Sodium Potassium Chloride Carbon Dioxide BUN Creatinine Glucose POC Glucose 162 H 179 H Hemoglobin A1c Ferritin AST ALT Alkaline Phosphatase Lactate Dehydrogenase C-Reactive Protein Total Protein Albumin Arterial Blood Glucose Coronavirus (PCR) 05/11/21 05/11/21 05/11/21 17:00 17:33 22:03 WBC MCH MCHC RDW Lymph % (Auto) Lymph # (Auto) [place] # (Auto) Baso # (Auto) Seg Neutrophils % Seg Neuts % (Manual) Lymphocytes % (Manual) Seg Neutrophils # Seg Neutrophils # Man Lymphocytes # (Manual) D-Dimer ABG pH POC ABG pO2 ABG pO2 ABG HCO3 ABG O2 Saturation ABG Base Excess ABG Oxyhemoglobin ABG Sodium ABG Chloride ABG Glucose Oxyhemoglobin Carboxyhemoglobin Sodium 135 L Potassium Chloride 97.3 L Carbon Dioxide BUN 21 H Creatinine 0.3 L Glucose 133 H POC Glucose 140 H 282 H Hemoglobin A1c Ferritin AST ALT 60 H Alkaline Phosphatase Lactate Dehydrogenase C-Reactive Protein Total Protein Albumin 3.1 L Arterial Blood Glucose Coronavirus (PCR) 05/12/21 05/12/21 05/12/21 04:05 04:05 04:05 WBC MCH MCHC RDW 18.4 H Lymph % (Auto) Lymph # (Auto) [place] # (Auto) Baso # (Auto) Seg Neutrophils % Seg Neuts % (Manual) 94.0 H Lymphocytes % (Manual) 4.0 L Seg Neutrophils # Seg Neutrophils # Man Lymphocytes # (Manual) 0.3 L D-Dimer ABG pH POC ABG pO2 ABG pO2 ABG HCO3 ABG O2 Saturation ABG Base Excess ABG Oxyhemoglobin ABG Sodium ABG Chloride ABG Glucose Oxyhemoglobin Carboxyhemoglobin Sodium 136 L Potassium Chloride Carbon Dioxide BUN 18 H Creatinine 0.2 L Glucose 142 H POC Glucose Hemoglobin A1c Ferritin 350.7 H AST ALT Alkaline Phosphatase Lactate Dehydrogenase 546 H C-Reactive Protein Total Protein 6.1 L Albumin 3.0 L Arterial Blood Glucose Coronavirus (PCR) 05/12/21 05/12/21 05/12/21 05:11 11:17 16:27 WBC MCH MCHC RDW Lymph % (Auto) Lymph # (Auto) [place] # (Auto) Baso # (Auto) Seg Neutrophils % Seg Neuts % (Manual) Lymphocytes % (Manual) Seg Neutrophils # Seg Neutrophils # Man Lymphocytes # (Manual) D-Dimer ABG pH POC ABG pO2 ABG pO2 ABG HCO3 ABG O2 Saturation ABG Base Excess ABG Oxyhemoglobin ABG Sodium ABG Chloride ABG Glucose Oxyhemoglobin Carboxyhemoglobin Sodium Potassium Chloride Carbon Dioxide BUN Creatinine Glucose POC Glucose 152 H 190 H 261 H Hemoglobin A1c Ferritin AST ALT Alkaline Phosphatase Lactate Dehydrogenase C-Reactive Protein Total Protein Albumin Arterial Blood Glucose Coronavirus (PCR) 05/12/21 05/13/21 05/13/21 20:55 11:08 21:41 WBC MCH MCHC RDW Lymph % (Auto) Lymph # (Auto) [place] # (Auto) Baso # (Auto) Seg Neutrophils % Seg Neuts % (Manual) Lymphocytes % (Manual) Seg Neutrophils # Seg Neutrophils # Man Lymphocytes # (Manual) D-Dimer ABG pH POC ABG pO2 ABG pO2 ABG HCO3 ABG O2 Saturation ABG Base Excess ABG Oxyhemoglobin ABG Sodium ABG Chloride ABG Glucose Oxyhemoglobin Carboxyhemoglobin Sodium Potassium Chloride Carbon Dioxide BUN Creatinine Glucose POC Glucose 231 H 106 H 174 H Hemoglobin A1c Ferritin AST ALT Alkaline Phosphatase Lactate Dehydrogenase C-Reactive Protein Total Protein Albumin Arterial Blood Glucose Coronavirus (PCR) 05/14/21 05/14/21 05/14/21 00:53 02:23 06:06 WBC MCH MCHC RDW Lymph % (Auto) Lymph # (Auto) [place] # (Auto) Baso # (Auto) Seg Neutrophils % Seg Neuts % (Manual) Lymphocytes % (Manual) Seg Neutrophils # Seg Neutrophils # Man Lymphocytes # (Manual) D-Dimer ABG pH POC ABG pO2 ABG pO2 130.3 H ABG HCO3 30.6 H ABG O2 Saturation ABG Base Excess 4.9 H ABG Oxyhemoglobin ABG Sodium ABG Chloride ABG Glucose Oxyhemoglobin Carboxyhemoglobin Sodium Potassium Chloride Carbon Dioxide BUN Creatinine Glucose POC Glucose 229 H 119 H Hemoglobin A1c Ferritin AST ALT Alkaline Phosphatase Lactate Dehydrogenase C-Reactive Protein Total Protein Albumin Arterial Blood Glucose Coronavirus (PCR) 05/14/21 05/14/21 05/14/21 07:13 07:13 07:13 WBC MCH MCHC RDW Lymph % (Auto) Lymph # (Auto) [place] # (Auto) Baso # (Auto) Seg Neutrophils % Seg Neuts % (Manual) Lymphocytes % (Manual) Seg Neutrophils # Seg Neutrophils # Man Lymphocytes # (Manual) D-Dimer 712.80 H ABG pH POC ABG pO2 ABG pO2 ABG HCO3 ABG O2 Saturation ABG Base Excess ABG Oxyhemoglobin ABG Sodium ABG Chloride ABG Glucose Oxyhemoglobin Carboxyhemoglobin Sodium 133 L Potassium Chloride 95.5 L Carbon Dioxide 32 H BUN Creatinine 0.2 L Glucose 137 H POC Glucose Hemoglobin A1c Ferritin 283.5 H AST ALT 63 H Alkaline Phosphatase Lactate Dehydrogenase 563 H C-Reactive Protein Total Protein 6.1 L Albumin 3.0 L Arterial Blood Glucose Coronavirus (PCR) 05/14/21 05/14/21 05/14/21 12:21 15:33 21:50 WBC MCH MCHC RDW Lymph % (Auto) Lymph # (Auto) [place] # (Auto) Baso # (Auto) Seg Neutrophils % Seg Neuts % (Manual) Lymphocytes % (Manual) Seg Neutrophils # Seg Neutrophils # Man Lymphocytes # (Manual) D-Dimer ABG pH POC ABG pO2 ABG pO2 ABG HCO3 ABG O2 Saturation ABG Base Excess ABG Oxyhemoglobin ABG Sodium ABG Chloride ABG Glucose Oxyhemoglobin Carboxyhemoglobin Sodium Potassium Chloride Carbon Dioxide BUN Creatinine Glucose POC Glucose 143 H 204 H 202 H Hemoglobin A1c Ferritin AST ALT Alkaline Phosphatase Lactate Dehydrogenase C-Reactive Protein Total Protein Albumin Arterial Blood Glucose Coronavirus (PCR) 05/15/21 05/15/21 05/15/21 05:05 11:12 16:39 WBC MCH MCHC RDW Lymph % (Auto) Lymph # (Auto) [place] # (Auto) Baso # (Auto) Seg Neutrophils % Seg Neuts % (Manual) Lymphocytes % (Manual) Seg Neutrophils # Seg Neutrophils # Man Lymphocytes # (Manual) D-Dimer ABG pH POC ABG pO2 ABG pO2 ABG HCO3 ABG O2 Saturation ABG Base Excess ABG Oxyhemoglobin ABG Sodium ABG Chloride ABG Glucose Oxyhemoglobin Carboxyhemoglobin Sodium Potassium Chloride Carbon Dioxide BUN Creatinine Glucose POC Glucose 125 H 201 H 241 H Hemoglobin A1c Ferritin AST ALT Alkaline Phosphatase Lactate Dehydrogenase C-Reactive Protein Total Protein Albumin Arterial Blood Glucose Coronavirus (PCR) 05/15/21 05/16/21 05/16/21 21:31 05:04 10:40 WBC MCH MCHC RDW Lymph % (Auto) Lymph # (Auto) [place] # (Auto) Baso # (Auto) Seg Neutrophils % Seg Neuts % (Manual) Lymphocytes % (Manual) Seg Neutrophils # Seg Neutrophils # Man Lymphocytes # (Manual) D-Dimer ABG pH POC ABG pO2 ABG pO2 ABG HCO3 ABG O2 Saturation ABG Base Excess ABG Oxyhemoglobin ABG Sodium ABG Chloride ABG Glucose Oxyhemoglobin Carboxyhemoglobin Sodium Potassium Chloride Carbon Dioxide BUN Creatinine Glucose POC Glucose 234 H 123 H 231 H Hemoglobin A1c Ferritin AST ALT Alkaline Phosphatase Lactate Dehydrogenase C-Reactive Protein Total Protein Albumin Arterial Blood Glucose Coronavirus (PCR) 05/16/21 05/16/21 05/17/21 18:23 21:29 06:20 WBC MCH MCHC RDW 18.8 H Lymph % (Auto) 10.2 L Lymph # (Auto) 0.8 L [place] # (Auto) Baso # (Auto) Seg Neutrophils % 85.8 H Seg Neuts % (Manual) Lymphocytes % (Manual) Seg Neutrophils # Seg Neutrophils # Man Lymphocytes # (Manual) D-Dimer ABG pH POC ABG pO2 ABG pO2 ABG HCO3 ABG O2 Saturation ABG Base Excess ABG Oxyhemoglobin ABG Sodium ABG Chloride ABG Glucose Oxyhemoglobin Carboxyhemoglobin Sodium Potassium Chloride Carbon Dioxide BUN Creatinine Glucose POC Glucose 266 H 234 H Hemoglobin A1c Ferritin AST ALT Alkaline Phosphatase Lactate Dehydrogenase C-Reactive Protein Total Protein Albumin Arterial Blood Glucose Coronavirus (PCR) 05/17/21 05/17/21 05/17/21 06:20 11:06 16:36 WBC MCH MCHC RDW Lymph % (Auto) Lymph # (Auto) [place] # (Auto) Baso # (Auto) Seg Neutrophils % Seg Neuts % (Manual) Lymphocytes % (Manual) Seg Neutrophils # Seg Neutrophils # Man Lymphocytes # (Manual) D-Dimer ABG pH POC ABG pO2 ABG pO2 ABG HCO3 ABG O2 Saturation ABG Base Excess ABG Oxyhemoglobin ABG Sodium ABG Chloride ABG Glucose Oxyhemoglobin Carboxyhemoglobin Sodium Potassium Chloride Carbon Dioxide 33 H BUN Creatinine 0.2 L Glucose 101 H POC Glucose 209 H 180 H Hemoglobin A1c Ferritin AST ALT Alkaline Phosphatase Lactate Dehydrogenase C-Reactive Protein Total Protein Albumin Arterial Blood Glucose Coronavirus (PCR) 05/17/21 05/18/21 05/18/21 21:06 12:00 15:06 WBC MCH MCHC RDW Lymph % (Auto) Lymph # (Auto) [place] # (Auto) Baso # (Auto) Seg Neutrophils % Seg Neuts % (Manual) Lymphocytes % (Manual) Seg Neutrophils # Seg Neutrophils # Man Lymphocytes # (Manual) D-Dimer 874.02 H ABG pH POC ABG pO2 ABG pO2 ABG HCO3 ABG O2 Saturation ABG Base Excess ABG Oxyhemoglobin ABG Sodium ABG Chloride ABG Glucose Oxyhemoglobin Carboxyhemoglobin Sodium Potassium Chloride Carbon Dioxide BUN Creatinine Glucose POC Glucose 256 H 139 H Hemoglobin A1c Ferritin AST ALT Alkaline Phosphatase Lactate Dehydrogenase C-Reactive Protein Total Protein Albumin Arterial Blood Glucose Coronavirus (PCR) 05/18/21 05/18/21 05/18/21 15:06 15:06 16:08 WBC MCH MCHC RDW Lymph % (Auto) Lymph # (Auto) [place] # (Auto) Baso # (Auto) Seg Neutrophils % Seg Neuts % (Manual) Lymphocytes % (Manual) Seg Neutrophils # Seg Neutrophils # Man Lymphocytes # (Manual) D-Dimer ABG pH POC ABG pO2 ABG pO2 ABG HCO3 ABG O2 Saturation ABG Base Excess ABG Oxyhemoglobin ABG Sodium ABG Chloride ABG Glucose Oxyhemoglobin Carboxyhemoglobin Sodium Potassium Chloride Carbon Dioxide BUN Creatinine Glucose POC Glucose 178 H Hemoglobin A1c Ferritin 289.6 H AST ALT Alkaline Phosphatase Lactate Dehydrogenase 605 H C-Reactive Protein Total Protein Albumin Arterial Blood Glucose Coronavirus (PCR) 05/18/21 05/19/21 05/19/21 21:22 11:57 15:26 WBC MCH MCHC RDW Lymph % (Auto) Lymph # (Auto) [place] # (Auto) Baso # (Auto) Seg Neutrophils % Seg Neuts % (Manual) Lymphocytes % (Manual) Seg Neutrophils # Seg Neutrophils # Man Lymphocytes # (Manual) D-Dimer ABG pH POC ABG pO2 ABG pO2 ABG HCO3 ABG O2 Saturation ABG Base Excess ABG Oxyhemoglobin ABG Sodium ABG Chloride ABG Glucose Oxyhemoglobin Carboxyhemoglobin Sodium Potassium Chloride Carbon Dioxide BUN Creatinine Glucose POC Glucose 241 H 201 H 209 H Hemoglobin A1c Ferritin AST ALT Alkaline Phosphatase Lactate Dehydrogenase C-Reactive Protein Total Protein Albumin Arterial Blood Glucose Coronavirus (PCR) 05/19/21 05/20/21 05/20/21 20:59 07:38 08:01 WBC MCH MCHC RDW 19.7 H Lymph % (Auto) 8.3 L Lymph # (Auto) 0.8 L [place] # (Auto) Baso # (Auto) Seg Neutrophils % 88.6 H Seg Neuts % (Manual) Lymphocytes % (Manual) Seg Neutrophils # 8.4 H Seg Neutrophils # Man Lymphocytes # (Manual) D-Dimer ABG pH POC ABG pO2 ABG pO2 ABG HCO3 ABG O2 Saturation ABG Base Excess ABG Oxyhemoglobin ABG Sodium ABG Chloride ABG Glucose Oxyhemoglobin Carboxyhemoglobin Sodium Potassium Chloride Carbon Dioxide BUN Creatinine Glucose POC Glucose 226 H 130 H Hemoglobin A1c Ferritin AST ALT Alkaline Phosphatase Lactate Dehydrogenase C-Reactive Protein Total Protein Albumin Arterial Blood Glucose Coronavirus (PCR) 05/20/21 05/20/21 05/20/21 08:01 11:00 16:43 WBC MCH MCHC RDW Lymph % (Auto) Lymph # (Auto) [place] # (Auto) Baso # (Auto) Seg Neutrophils % Seg Neuts % (Manual) Lymphocytes % (Manual) Seg Neutrophils # Seg Neutrophils # Man Lymphocytes # (Manual) D-Dimer ABG pH POC ABG pO2 ABG pO2 ABG HCO3 ABG O2 Saturation ABG Base Excess ABG Oxyhemoglobin ABG Sodium ABG Chloride ABG Glucose Oxyhemoglobin Carboxyhemoglobin Sodium Potassium Chloride Carbon Dioxide BUN 18 H Creatinine 0.2 L Glucose 132 H POC Glucose 237 H 240 H Hemoglobin A1c Ferritin AST ALT Alkaline Phosphatase Lactate Dehydrogenase C-Reactive Protein Total Protein Albumin Arterial Blood Glucose Coronavirus (PCR) 05/20/21 05/21/21 05/21/21 21:21 07:35 11:32 WBC MCH MCHC RDW Lymph % (Auto) Lymph # (Auto) [place] # (Auto) Baso # (Auto) Seg Neutrophils % Seg Neuts % (Manual) Lymphocytes % (Manual) Seg Neutrophils # Seg Neutrophils # Man Lymphocytes # (Manual) D-Dimer ABG pH POC ABG pO2 ABG pO2 ABG HCO3 ABG O2 Saturation ABG Base Excess ABG Oxyhemoglobin ABG Sodium ABG Chloride ABG Glucose Oxyhemoglobin Carboxyhemoglobin Sodium Potassium Chloride Carbon Dioxide BUN Creatinine Glucose POC Glucose 241 H 162 H 171 H Hemoglobin A1c Ferritin AST ALT Alkaline Phosphatase Lactate Dehydrogenase C-Reactive Protein Total Protein Albumin Arterial Blood Glucose Coronavirus (PCR) 05/21/21 05/21/21 05/22/21 16:22 20:43 05:14 WBC MCH MCHC RDW Lymph % (Auto) Lymph # (Auto) [place] # (Auto) Baso # (Auto) Seg Neutrophils % Seg Neuts % (Manual) Lymphocytes % (Manual) Seg Neutrophils # Seg Neutrophils # Man Lymphocytes # (Manual) D-Dimer ABG pH POC ABG pO2 ABG pO2 ABG HCO3 ABG O2 Saturation ABG Base Excess ABG Oxyhemoglobin ABG Sodium ABG Chloride ABG Glucose Oxyhemoglobin Carboxyhemoglobin Sodium Potassium Chloride Carbon Dioxide BUN Creatinine Glucose POC Glucose 244 H 299 H 140 H Hemoglobin A1c Ferritin AST ALT Alkaline Phosphatase Lactate Dehydrogenase C-Reactive Protein Total Protein Albumin Arterial Blood Glucose Coronavirus (PCR) 05/22/21 05/22/21 05/22/21 08:45 11:54 16:15 WBC MCH MCHC RDW Lymph % (Auto) Lymph # (Auto) [place] # (Auto) Baso # (Auto) Seg Neutrophils % Seg Neuts % (Manual) Lymphocytes % (Manual) Seg Neutrophils # Seg Neutrophils # Man Lymphocytes # (Manual) D-Dimer ABG pH POC ABG pO2 ABG pO2 ABG HCO3 ABG O2 Saturation ABG Base Excess ABG Oxyhemoglobin ABG Sodium ABG Chloride ABG Glucose Oxyhemoglobin Carboxyhemoglobin Sodium Potassium Chloride Carbon Dioxide BUN Creatinine Glucose POC Glucose 133 H 265 H 221 H Hemoglobin A1c Ferritin AST ALT Alkaline Phosphatase Lactate Dehydrogenase C-Reactive Protein Total Protein Albumin Arterial Blood Glucose Coronavirus (PCR) 05/22/21 05/23/21 05/23/21 21:43 08:20 09:50 WBC MCH MCHC RDW Lymph % (Auto) Lymph # (Auto) [place] # (Auto) Baso # (Auto) Seg Neutrophils % Seg Neuts % (Manual) Lymphocytes % (Manual) Seg Neutrophils # Seg Neutrophils # Man Lymphocytes # (Manual) D-Dimer 910.38 H ABG pH POC ABG pO2 ABG pO2 ABG HCO3 ABG O2 Saturation ABG Base Excess ABG Oxyhemoglobin ABG Sodium ABG Chloride ABG Glucose Oxyhemoglobin Carboxyhemoglobin Sodium Potassium Chloride Carbon Dioxide BUN Creatinine Glucose POC Glucose 262 H 140 H Hemoglobin A1c Ferritin AST ALT Alkaline Phosphatase Lactate Dehydrogenase C-Reactive Protein Total Protein Albumin Arterial Blood Glucose Coronavirus (PCR) 05/23/21 05/23/21 05/23/21 09:50 09:50 10:52 WBC MCH MCHC RDW Lymph % (Auto) Lymph # (Auto) [place] # (Auto) Baso # (Auto) Seg Neutrophils % Seg Neuts % (Manual) Lymphocytes % (Manual) Seg Neutrophils # Seg Neutrophils # Man Lymphocytes # (Manual) D-Dimer ABG pH POC ABG pO2 ABG pO2 ABG HCO3 ABG O2 Saturation ABG Base Excess ABG Oxyhemoglobin ABG Sodium ABG Chloride ABG Glucose Oxyhemoglobin Carboxyhemoglobin Sodium Potassium Chloride Carbon Dioxide BUN Creatinine Glucose POC Glucose 241 H Hemoglobin A1c Ferritin 244.9 H AST ALT Alkaline Phosphatase Lactate Dehydrogenase 584 H C-Reactive Protein Total Protein Albumin Arterial Blood Glucose Coronavirus (PCR) 05/23/21 05/23/21 05/24/21 17:24 21:52 07:44 WBC MCH MCHC RDW Lymph % (Auto) Lymph # (Auto) [place] # (Auto) Baso # (Auto) Seg Neutrophils % Seg Neuts % (Manual) Lymphocytes % (Manual) Seg Neutrophils # Seg Neutrophils # Man Lymphocytes # (Manual) D-Dimer ABG pH POC ABG pO2 ABG pO2 ABG HCO3 ABG O2 Saturation ABG Base Excess ABG Oxyhemoglobin ABG Sodium ABG Chloride ABG Glucose Oxyhemoglobin Carboxyhemoglobin Sodium Potassium Chloride Carbon Dioxide BUN Creatinine Glucose POC Glucose 197 H 289 H 161 H Hemoglobin A1c Ferritin AST ALT Alkaline Phosphatase Lactate Dehydrogenase C-Reactive Protein Total Protein Albumin Arterial Blood Glucose Coronavirus (PCR) 05/24/21 05/24/21 05/24/21 11:17 17:51 21:26 WBC MCH MCHC RDW Lymph % (Auto) Lymph # (Auto) [place] # (Auto) Baso # (Auto) Seg Neutrophils % Seg Neuts % (Manual) Lymphocytes % (Manual) Seg Neutrophils # Seg Neutrophils # Man Lymphocytes # (Manual) D-Dimer ABG pH POC ABG pO2 ABG pO2 ABG HCO3 ABG O2 Saturation ABG Base Excess ABG Oxyhemoglobin ABG Sodium ABG Chloride ABG Glucose Oxyhemoglobin Carboxyhemoglobin Sodium Potassium Chloride Carbon Dioxide BUN Creatinine Glucose POC Glucose 308 H 175 H 198 H Hemoglobin A1c Ferritin AST ALT Alkaline Phosphatase Lactate Dehydrogenase C-Reactive Protein Total Protein Albumin Arterial Blood Glucose Coronavirus (PCR) 05/25/21 05/25/21 05/25/21 08:14 11:13 17:13 WBC MCH MCHC RDW Lymph % (Auto) Lymph # (Auto) [place] # (Auto) Baso # (Auto) Seg Neutrophils % Seg Neuts % (Manual) Lymphocytes % (Manual) Seg Neutrophils # Seg Neutrophils # Man Lymphocytes # (Manual) D-Dimer ABG pH POC ABG pO2 ABG pO2 ABG HCO3 ABG O2 Saturation ABG Base Excess ABG Oxyhemoglobin ABG Sodium ABG Chloride ABG Glucose Oxyhemoglobin Carboxyhemoglobin Sodium Potassium Chloride Carbon Dioxide BUN Creatinine Glucose POC Glucose 203 H 339 H 235 H Hemoglobin A1c Ferritin AST ALT Alkaline Phosphatase Lactate Dehydrogenase C-Reactive Protein Total Protein Albumin Arterial Blood Glucose Coronavirus (PCR) 05/25/21 05/26/21 05/26/21 21:03 07:33 11:19 WBC MCH MCHC RDW Lymph % (Auto) Lymph # (Auto) [place] # (Auto) Baso # (Auto) Seg Neutrophils % Seg Neuts % (Manual) Lymphocytes % (Manual) Seg Neutrophils # Seg Neutrophils # Man Lymphocytes # (Manual) D-Dimer ABG pH POC ABG pO2 ABG pO2 ABG HCO3 ABG O2 Saturation ABG Base Excess ABG Oxyhemoglobin ABG Sodium ABG Chloride ABG Glucose Oxyhemoglobin Carboxyhemoglobin Sodium Potassium Chloride Carbon Dioxide BUN Creatinine Glucose POC Glucose 263 H 156 H 288 H Hemoglobin A1c Ferritin AST ALT Alkaline Phosphatase Lactate Dehydrogenase C-Reactive Protein Total Protein Albumin Arterial Blood Glucose Coronavirus (PCR) 05/26/21 05/26/21 05/27/21 16:26 20:55 07:38 WBC MCH MCHC RDW Lymph % (Auto) Lymph # (Auto) [place] # (Auto) Baso # (Auto) Seg Neutrophils % Seg Neuts % (Manual) Lymphocytes % (Manual) Seg Neutrophils # Seg Neutrophils # Man Lymphocytes # (Manual) D-Dimer ABG pH POC ABG pO2 ABG pO2 ABG HCO3 ABG O2 Saturation ABG Base Excess ABG Oxyhemoglobin ABG Sodium ABG Chloride ABG Glucose Oxyhemoglobin Carboxyhemoglobin Sodium Potassium Chloride Carbon Dioxide BUN Creatinine Glucose POC Glucose 286 H 293 H 115 H Hemoglobin A1c Ferritin AST ALT Alkaline Phosphatase Lactate Dehydrogenase C-Reactive Protein Total Protein Albumin Arterial Blood Glucose Coronavirus (PCR) 05/27/21 05/27/21 05/27/21 11:46 15:58 21:02 WBC MCH MCHC RDW Lymph % (Auto) Lymph # (Auto) [place] # (Auto) Baso # (Auto) Seg Neutrophils % Seg Neuts % (Manual) Lymphocytes % (Manual) Seg Neutrophils # Seg Neutrophils # Man Lymphocytes # (Manual) D-Dimer ABG pH POC ABG pO2 ABG pO2 ABG HCO3 ABG O2 Saturation ABG Base Excess ABG Oxyhemoglobin ABG Sodium ABG Chloride ABG Glucose Oxyhemoglobin Carboxyhemoglobin Sodium Potassium Chloride Carbon Dioxide BUN Creatinine Glucose POC Glucose 260 H 318 H 246 H Hemoglobin A1c Ferritin AST ALT Alkaline Phosphatase Lactate Dehydrogenase C-Reactive Protein Total Protein Albumin Arterial Blood Glucose Coronavirus (PCR) 05/28/21 05/28/21 05/28/21 07:34 11:31 16:36 WBC MCH MCHC RDW Lymph % (Auto) Lymph # (Auto) [place] # (Auto) Baso # (Auto) Seg Neutrophils % Seg Neuts % (Manual) Lymphocytes % (Manual) Seg Neutrophils # Seg Neutrophils # Man Lymphocytes # (Manual) D-Dimer ABG pH POC ABG pO2 ABG pO2 ABG HCO3 ABG O2 Saturation ABG Base Excess ABG Oxyhemoglobin ABG Sodium ABG Chloride ABG Glucose Oxyhemoglobin Carboxyhemoglobin Sodium Potassium Chloride Carbon Dioxide BUN Creatinine Glucose POC Glucose 185 H 297 H 183 H Hemoglobin A1c Ferritin AST ALT Alkaline Phosphatase Lactate Dehydrogenase C-Reactive Protein Total Protein Albumin Arterial Blood Glucose Coronavirus (PCR) 05/28/21 05/29/21 05/29/21 21:19 07:34 11:19 WBC MCH MCHC RDW Lymph % (Auto) Lymph # (Auto) [place] # (Auto) Baso # (Auto) Seg Neutrophils % Seg Neuts % (Manual) Lymphocytes % (Manual) Seg Neutrophils # Seg Neutrophils # Man Lymphocytes # (Manual) D-Dimer ABG pH POC ABG pO2 ABG pO2 ABG HCO3 ABG O2 Saturation ABG Base Excess ABG Oxyhemoglobin ABG Sodium ABG Chloride ABG Glucose Oxyhemoglobin Carboxyhemoglobin Sodium Potassium Chloride Carbon Dioxide BUN Creatinine Glucose POC Glucose 274 H 139 H 293 H Hemoglobin A1c Ferritin AST ALT Alkaline Phosphatase Lactate Dehydrogenase C-Reactive Protein Total Protein Albumin Arterial Blood Glucose Coronavirus (PCR) 05/29/21 05/29/21 05/30/21 16:36 22:44 05:55 WBC MCH MCHC RDW 21.3 H Lymph % (Auto) 8.0 L Lymph # (Auto) 0.6 L [place] # (Auto) Baso # (Auto) Seg Neutrophils % 88.6 H Seg Neuts % (Manual) Lymphocytes % (Manual) Seg Neutrophils # Seg Neutrophils # Man Lymphocytes # (Manual) D-Dimer ABG pH POC ABG pO2 ABG pO2 ABG HCO3 ABG O2 Saturation ABG Base Excess ABG Oxyhemoglobin ABG Sodium ABG Chloride ABG Glucose Oxyhemoglobin Carboxyhemoglobin Sodium Potassium Chloride Carbon Dioxide BUN Creatinine Glucose POC Glucose 299 H 160 H Hemoglobin A1c Ferritin AST ALT Alkaline Phosphatase Lactate Dehydrogenase C-Reactive Protein Total Protein Albumin Arterial Blood Glucose Coronavirus (PCR) 05/30/21 05/30/21 05/30/21 05:55 08:04 11:13 WBC MCH MCHC RDW Lymph % (Auto) Lymph # (Auto) [place] # (Auto) Baso # (Auto) Seg Neutrophils % Seg Neuts % (Manual) Lymphocytes % (Manual) Seg Neutrophils # Seg Neutrophils # Man Lymphocytes # (Manual) D-Dimer ABG pH POC ABG pO2 ABG pO2 ABG HCO3 ABG O2 Saturation ABG Base Excess ABG Oxyhemoglobin ABG Sodium ABG Chloride ABG Glucose Oxyhemoglobin Carboxyhemoglobin Sodium Potassium Chloride Carbon Dioxide BUN 19 H Creatinine 0.2 L Glucose 209 H POC Glucose 157 H 275 H Hemoglobin A1c Ferritin AST ALT Alkaline Phosphatase Lactate Dehydrogenase C-Reactive Protein Total Protein Albumin Arterial Blood Glucose Coronavirus (PCR) 05/30/21 05/30/21 05/31/21 17:08 22:12 07:36 WBC MCH MCHC RDW Lymph % (Auto) Lymph # (Auto) [place] # (Auto) Baso # (Auto) Seg Neutrophils % Seg Neuts % (Manual) Lymphocytes % (Manual) Seg Neutrophils # Seg Neutrophils # Man Lymphocytes # (Manual) D-Dimer ABG pH POC ABG pO2 ABG pO2 ABG HCO3 ABG O2 Saturation ABG Base Excess ABG Oxyhemoglobin ABG Sodium ABG Chloride ABG Glucose Oxyhemoglobin Carboxyhemoglobin Sodium Potassium Chloride Carbon Dioxide BUN Creatinine Glucose POC Glucose 154 H 275 H 138 H Hemoglobin A1c Ferritin AST ALT Alkaline Phosphatase Lactate Dehydrogenase C-Reactive Protein Total Protein Albumin Arterial Blood Glucose Coronavirus (PCR) 05/31/21 05/31/21 05/31/21 11:17 16:55 21:25 WBC MCH MCHC RDW Lymph % (Auto) Lymph # (Auto) [place] # (Auto) Baso # (Auto) Seg Neutrophils % Seg Neuts % (Manual) Lymphocytes % (Manual) Seg Neutrophils # Seg Neutrophils # Man Lymphocytes # (Manual) D-Dimer ABG pH POC ABG pO2 ABG pO2 ABG HCO3 ABG O2 Saturation ABG Base Excess ABG Oxyhemoglobin ABG Sodium ABG Chloride ABG Glucose Oxyhemoglobin Carboxyhemoglobin Sodium Potassium Chloride Carbon Dioxide BUN Creatinine Glucose POC Glucose 258 H 215 H 318 H Hemoglobin A1c Ferritin AST ALT Alkaline Phosphatase Lactate Dehydrogenase C-Reactive Protein Total Protein Albumin Arterial Blood Glucose Coronavirus (PCR) 06/01/21 06/01/21 06/01/21 07:23 11:38 16:52 WBC MCH MCHC RDW Lymph % (Auto) Lymph # (Auto) [place] # (Auto) Baso # (Auto) Seg Neutrophils % Seg Neuts % (Manual) Lymphocytes % (Manual) Seg Neutrophils # Seg Neutrophils # Man Lymphocytes # (Manual) D-Dimer ABG pH POC ABG pO2 ABG pO2 ABG HCO3 ABG O2 Saturation ABG Base Excess ABG Oxyhemoglobin ABG Sodium ABG Chloride ABG Glucose Oxyhemoglobin Carboxyhemoglobin Sodium Potassium Chloride Carbon Dioxide BUN Creatinine Glucose POC Glucose 157 H 259 H 150 H Hemoglobin A1c Ferritin AST ALT Alkaline Phosphatase Lactate Dehydrogenase C-Reactive Protein Total Protein Albumin Arterial Blood Glucose Coronavirus (PCR) 06/01/21 06/02/21 06/02/21 23:16 05:34 05:34 WBC MCH MCHC RDW 21.3 H Lymph % (Auto) 9.6 L Lymph # (Auto) 0.6 L [place] # (Auto) Baso # (Auto) Seg Neutrophils % 86.2 H Seg Neuts % (Manual) Lymphocytes % (Manual) Seg Neutrophils # Seg Neutrophils # Man Lymphocytes # (Manual) D-Dimer ABG pH POC ABG pO2 ABG pO2 ABG HCO3 ABG O2 Saturation ABG Base Excess ABG Oxyhemoglobin ABG Sodium ABG Chloride ABG Glucose Oxyhemoglobin Carboxyhemoglobin Sodium 136 L Potassium Chloride Carbon Dioxide BUN Creatinine 0.2 L Glucose 186 H POC Glucose 247 H Hemoglobin A1c Ferritin AST ALT 69 H Alkaline Phosphatase Lactate Dehydrogenase C-Reactive Protein Total Protein 6.1 L Albumin 3.2 L Arterial Blood Glucose Coronavirus (PCR) 06/02/21 06/02/21 06/02/21 11:25 18:23 21:32 WBC MCH MCHC RDW Lymph % (Auto) Lymph # (Auto) [place] # (Auto) Baso # (Auto) Seg Neutrophils % Seg Neuts % (Manual) Lymphocytes % (Manual) Seg Neutrophils # Seg Neutrophils # Man Lymphocytes # (Manual) D-Dimer ABG pH POC ABG pO2 ABG pO2 ABG HCO3 ABG O2 Saturation ABG Base Excess ABG Oxyhemoglobin ABG Sodium ABG Chloride ABG Glucose Oxyhemoglobin Carboxyhemoglobin Sodium Potassium Chloride Carbon Dioxide BUN Creatinine Glucose POC Glucose 157 H 299 H 246 H Hemoglobin A1c Ferritin AST ALT Alkaline Phosphatase Lactate Dehydrogenase C-Reactive Protein Total Protein Albumin Arterial Blood Glucose Coronavirus (PCR) 06/03/21 06/03/21 06/03/21 08:12 12:21 17:31 WBC MCH MCHC RDW Lymph % (Auto) Lymph # (Auto) [place] # (Auto) Baso # (Auto) Seg Neutrophils % Seg Neuts % (Manual) Lymphocytes % (Manual) Seg Neutrophils # Seg Neutrophils # Man Lymphocytes # (Manual) D-Dimer ABG pH POC ABG pO2 ABG pO2 ABG HCO3 ABG O2 Saturation ABG Base Excess ABG Oxyhemoglobin ABG Sodium ABG Chloride ABG Glucose Oxyhemoglobin Carboxyhemoglobin Sodium Potassium Chloride Carbon Dioxide BUN Creatinine Glucose POC Glucose 153 H 302 H 252 H Hemoglobin A1c Ferritin AST ALT Alkaline Phosphatase Lactate Dehydrogenase C-Reactive Protein Total Protein Albumin Arterial Blood Glucose Coronavirus (PCR) 06/03/21 06/04/21 06/04/21 22:08 11:12 16:01 WBC MCH MCHC RDW Lymph % (Auto) Lymph # (Auto) [place] # (Auto) Baso # (Auto) Seg Neutrophils % Seg Neuts % (Manual) Lymphocytes % (Manual) Seg Neutrophils # Seg Neutrophils # Man Lymphocytes # (Manual) D-Dimer ABG pH POC ABG pO2 ABG pO2 ABG HCO3 ABG O2 Saturation ABG Base Excess ABG Oxyhemoglobin ABG Sodium ABG Chloride ABG Glucose Oxyhemoglobin Carboxyhemoglobin Sodium Potassium Chloride Carbon Dioxide BUN Creatinine Glucose POC Glucose 224 H 259 H 238 H Hemoglobin A1c Ferritin AST ALT Alkaline Phosphatase Lactate Dehydrogenase C-Reactive Protein Total Protein Albumin Arterial Blood Glucose Coronavirus (PCR) 06/04/21 06/05/21 06/05/21 21:26 05:26 05:26 WBC MCH MCHC RDW Lymph % (Auto) Lymph # (Auto) [place] # (Auto) Baso # (Auto) Seg Neutrophils % Seg Neuts % (Manual) Lymphocytes % (Manual) Seg Neutrophils # Seg Neutrophils # Man Lymphocytes # (Manual) D-Dimer 488.49 H ABG pH POC ABG pO2 ABG pO2 ABG HCO3 ABG O2 Saturation ABG Base Excess ABG Oxyhemoglobin ABG Sodium ABG Chloride ABG Glucose Oxyhemoglobin Carboxyhemoglobin Sodium Potassium Chloride Carbon Dioxide BUN Creatinine 0.2 L Glucose 198 H POC Glucose 257 H Hemoglobin A1c Ferritin AST ALT Alkaline Phosphatase Lactate Dehydrogenase 475 H C-Reactive Protein Total Protein Albumin Arterial Blood Glucose Coronavirus (PCR) 06/05/21 06/05/21 06/05/21 07:20 08:30 11:00 WBC MCH MCHC RDW Lymph % (Auto) Lymph # (Auto) [place] # (Auto) Baso # (Auto) Seg Neutrophils % Seg Neuts % (Manual) Lymphocytes % (Manual) Seg Neutrophils # Seg Neutrophils # Man Lymphocytes # (Manual) D-Dimer ABG pH POC ABG pO2 ABG pO2 ABG HCO3 ABG O2 Saturation ABG Base Excess ABG Oxyhemoglobin ABG Sodium ABG Chloride ABG Glucose Oxyhemoglobin Carboxyhemoglobin Sodium Potassium Chloride Carbon Dioxide BUN Creatinine Glucose POC Glucose 146 H 246 H Hemoglobin A1c Ferritin AST ALT Alkaline Phosphatase Lactate Dehydrogenase C-Reactive Protein Total Protein Albumin Arterial Blood Glucose Coronavirus (PCR) Positive A 06/05/21 06/05/21 06/06/21 16:50 22:30 07:57 WBC MCH MCHC RDW Lymph % (Auto) Lymph # (Auto) [place] # (Auto) Baso # (Auto) Seg Neutrophils % Seg Neuts % (Manual) Lymphocytes % (Manual) Seg Neutrophils # Seg Neutrophils # Man Lymphocytes # (Manual) D-Dimer ABG pH POC ABG pO2 ABG pO2 ABG HCO3 ABG O2 Saturation ABG Base Excess ABG Oxyhemoglobin ABG Sodium ABG Chloride ABG Glucose Oxyhemoglobin Carboxyhemoglobin Sodium Potassium Chloride Carbon Dioxide BUN Creatinine Glucose POC Glucose 240 H 174 H 120 H Hemoglobin A1c Ferritin AST ALT Alkaline Phosphatase Lactate Dehydrogenase C-Reactive Protein Total Protein Albumin Arterial Blood Glucose Coronavirus (PCR) 06/06/21 06/06/21 06/06/21 11:14 16:50 21:11 WBC MCH MCHC RDW Lymph % (Auto) Lymph # (Auto) [place] # (Auto) Baso # (Auto) Seg Neutrophils % Seg Neuts % (Manual) Lymphocytes % (Manual) Seg Neutrophils # Seg Neutrophils # Man Lymphocytes # (Manual) D-Dimer ABG pH POC ABG pO2 ABG pO2 ABG HCO3 ABG O2 Saturation ABG Base Excess ABG Oxyhemoglobin ABG Sodium ABG Chloride ABG Glucose Oxyhemoglobin Carboxyhemoglobin Sodium Potassium Chloride Carbon Dioxide BUN Creatinine Glucose POC Glucose 267 H 218 H 124 H Hemoglobin A1c Ferritin AST ALT Alkaline Phosphatase Lactate Dehydrogenase C-Reactive Protein Total Protein Albumin Arterial Blood Glucose Coronavirus (PCR) 06/07/21 06/07/21 06/08/21 11:58 15:59 07:59 WBC MCH MCHC RDW Lymph % (Auto) Lymph # (Auto) [place] # (Auto) Baso # (Auto) Seg Neutrophils % Seg Neuts % (Manual) Lymphocytes % (Manual) Seg Neutrophils # Seg Neutrophils # Man Lymphocytes # (Manual) D-Dimer ABG pH POC ABG pO2 ABG pO2 ABG HCO3 ABG O2 Saturation ABG Base Excess ABG Oxyhemoglobin ABG Sodium ABG Chloride ABG Glucose Oxyhemoglobin Carboxyhemoglobin Sodium Potassium Chloride Carbon Dioxide BUN Creatinine Glucose POC Glucose 219 H 208 H 192 H Hemoglobin A1c Ferritin AST ALT Alkaline Phosphatase Lactate Dehydrogenase C-Reactive Protein Total Protein Albumin Arterial Blood Glucose Coronavirus (PCR) 06/08/21 06/08/21 06/09/21 11:26 23:28 07:33 WBC MCH MCHC RDW Lymph % (Auto) Lymph # (Auto) [place] # (Auto) Baso # (Auto) Seg Neutrophils % Seg Neuts % (Manual) Lymphocytes % (Manual) Seg Neutrophils # Seg Neutrophils # Man Lymphocytes # (Manual) D-Dimer ABG pH POC ABG pO2 ABG pO2 ABG HCO3 ABG O2 Saturation ABG Base Excess ABG Oxyhemoglobin ABG Sodium ABG Chloride ABG Glucose Oxyhemoglobin Carboxyhemoglobin Sodium Potassium Chloride Carbon Dioxide BUN Creatinine Glucose POC Glucose 307 H 138 H 145 H Hemoglobin A1c Ferritin AST ALT Alkaline Phosphatase Lactate Dehydrogenase C-Reactive Protein Total Protein Albumin Arterial Blood Glucose Coronavirus (PCR) 06/09/21 06/09/21 06/09/21 11:01 15:47 21:43 WBC MCH MCHC RDW Lymph % (Auto) Lymph # (Auto) [place] # (Auto) Baso # (Auto) Seg Neutrophils % Seg Neuts % (Manual) Lymphocytes % (Manual) Seg Neutrophils # Seg Neutrophils # Man Lymphocytes # (Manual) D-Dimer ABG pH POC ABG pO2 ABG pO2 ABG HCO3 ABG O2 Saturation ABG Base Excess ABG Oxyhemoglobin ABG Sodium ABG Chloride ABG Glucose Oxyhemoglobin Carboxyhemoglobin Sodium Potassium Chloride Carbon Dioxide BUN Creatinine Glucose POC Glucose 266 H 305 H 223 H Hemoglobin A1c Ferritin AST ALT Alkaline Phosphatase Lactate Dehydrogenase C-Reactive Protein Total Protein Albumin Arterial Blood Glucose Coronavirus (PCR) 06/10/21 06/10/21 06/10/21 08:27 12:10 17:45 WBC MCH MCHC RDW Lymph % (Auto) Lymph # (Auto) [place] # (Auto) Baso # (Auto) Seg Neutrophils % Seg Neuts % (Manual) Lymphocytes % (Manual) Seg Neutrophils # Seg Neutrophils # Man Lymphocytes # (Manual) D-Dimer ABG pH POC ABG pO2 ABG pO2 ABG HCO3 ABG O2 Saturation ABG Base Excess ABG Oxyhemoglobin ABG Sodium ABG Chloride ABG Glucose Oxyhemoglobin Carboxyhemoglobin Sodium Potassium Chloride Carbon Dioxide BUN Creatinine Glucose POC Glucose 174 H 306 H 210 H Hemoglobin A1c Ferritin AST ALT Alkaline Phosphatase Lactate Dehydrogenase C-Reactive Protein Total Protein Albumin Arterial Blood Glucose Coronavirus (PCR) 06/10/21 06/11/21 06/11/21 21:45 09:38 09:38 WBC MCH MCHC RDW 20.9 H Lymph % (Auto) Lymph # (Auto) [place] [place] # (Auto) Baso # (Auto) Seg Neutrophils % Seg Neuts % (Manual) Lymphocytes % (Manual) Seg Neutrophils # Seg Neutrophils # Man Lymphocytes # (Manual) D-Dimer ABG pH POC ABG pO2 ABG pO2 ABG HCO3 ABG O2 Saturation ABG Base Excess ABG Oxyhemoglobin ABG Sodium ABG Chloride ABG Glucose Oxyhemoglobin Carboxyhemoglobin Sodium 135 L Potassium Chloride 90.8 L Carbon Dioxide 36 H BUN 29 H Creatinine 0.2 L Glucose 258 H POC Glucose 262 H Hemoglobin A1c Ferritin AST ALT Alkaline Phosphatase Lactate Dehydrogenase C-Reactive Protein Total Protein Albumin Arterial Blood Glucose Coronavirus (PCR) 06/11/21 06/11/21 06/11/21 11:20 15:49 22:57 WBC MCH MCHC RDW Lymph % (Auto) Lymph # (Auto) [place] # (Auto) Baso # (Auto) Seg Neutrophils % Seg Neuts % (Manual) Lymphocytes % (Manual) Seg Neutrophils # Seg Neutrophils # Man Lymphocytes # (Manual) D-Dimer ABG pH POC ABG pO2 ABG pO2 ABG HCO3 ABG O2 Saturation ABG Base Excess ABG Oxyhemoglobin ABG Sodium ABG Chloride ABG Glucose Oxyhemoglobin Carboxyhemoglobin Sodium Potassium Chloride Carbon Dioxide BUN Creatinine Glucose POC Glucose 269 H 206 H 211 H Hemoglobin A1c Ferritin AST ALT Alkaline Phosphatase Lactate Dehydrogenase C-Reactive Protein Total Protein Albumin Arterial Blood Glucose Coronavirus (PCR) 06/12/21 06/12/21 06/12/21 08:07 11:24 18:08 WBC MCH MCHC RDW Lymph % (Auto) Lymph # (Auto) [place] # (Auto) Baso # (Auto) Seg Neutrophils % Seg Neuts % (Manual) Lymphocytes % (Manual) Seg Neutrophils # Seg Neutrophils # Man Lymphocytes # (Manual) D-Dimer ABG pH POC ABG pO2 ABG pO2 ABG HCO3 ABG O2 Saturation ABG Base Excess ABG Oxyhemoglobin ABG Sodium ABG Chloride ABG Glucose Oxyhemoglobin Carboxyhemoglobin Sodium Potassium Chloride Carbon Dioxide BUN Creatinine Glucose POC Glucose 149 H 270 H 166 H Hemoglobin A1c Ferritin AST ALT Alkaline Phosphatase Lactate Dehydrogenase C-Reactive Protein Total Protein Albumin Arterial Blood Glucose Coronavirus (PCR) 06/12/21 06/13/21 06/13/21 20:22 07:50 11:18 WBC MCH MCHC RDW Lymph % (Auto) Lymph # (Auto) [place] # (Auto) Baso # (Auto) Seg Neutrophils % Seg Neuts % (Manual) Lymphocytes % (Manual) Seg Neutrophils # Seg Neutrophils # Man Lymphocytes # (Manual) D-Dimer ABG pH POC ABG pO2 ABG pO2 ABG HCO3 ABG O2 Saturation ABG Base Excess ABG Oxyhemoglobin ABG Sodium ABG Chloride ABG Glucose Oxyhemoglobin Carboxyhemoglobin Sodium Potassium Chloride Carbon Dioxide BUN Creatinine Glucose POC Glucose 155 H 163 H 293 H Hemoglobin A1c Ferritin AST ALT Alkaline Phosphatase Lactate Dehydrogenase C-Reactive Protein Total Protein Albumin Arterial Blood Glucose Coronavirus (PCR) 06/13/21 06/13/21 06/14/21 16:41 21:00 07:41 WBC MCH MCHC RDW Lymph % (Auto) Lymph # (Auto) [place] # (Auto) Baso # (Auto) Seg Neutrophils % Seg Neuts % (Manual) Lymphocytes % (Manual) Seg Neutrophils # Seg Neutrophils # Man Lymphocytes # (Manual) D-Dimer ABG pH POC ABG pO2 ABG pO2 ABG HCO3 ABG O2 Saturation ABG Base Excess ABG Oxyhemoglobin ABG Sodium ABG Chloride ABG Glucose Oxyhemoglobin Carboxyhemoglobin Sodium Potassium Chloride Carbon Dioxide BUN Creatinine Glucose POC Glucose 232 H 183 H 52 L Hemoglobin A1c Ferritin AST ALT Alkaline Phosphatase Lactate Dehydrogenase C-Reactive Protein Total Protein Albumin Arterial Blood Glucose Coronavirus (PCR) 06/14/21 06/14/21 06/14/21 11:44 17:44 21:44 WBC MCH MCHC RDW Lymph % (Auto) Lymph # (Auto) [place] # (Auto) Baso # (Auto) Seg Neutrophils % Seg Neuts % (Manual) Lymphocytes % (Manual) Seg Neutrophils # Seg Neutrophils # Man Lymphocytes # (Manual) D-Dimer ABG pH POC ABG pO2 ABG pO2 ABG HCO3 ABG O2 Saturation ABG Base Excess ABG Oxyhemoglobin ABG Sodium ABG Chloride ABG Glucose Oxyhemoglobin Carboxyhemoglobin Sodium Potassium Chloride Carbon Dioxide BUN Creatinine Glucose POC Glucose 205 H 293 H 288 H Hemoglobin A1c Ferritin AST ALT Alkaline Phosphatase Lactate Dehydrogenase C-Reactive Protein Total Protein Albumin Arterial Blood Glucose Coronavirus (PCR) 06/15/21 06/15/21 06/15/21 08:00 08:00 11:40 WBC MCH 33 H MCHC 35 H RDW 20.3 H Lymph % (Auto) Lymph # (Auto) [place] # (Auto) Baso # (Auto) Seg Neutrophils % Seg Neuts % (Manual) Lymphocytes % (Manual) Seg Neutrophils # Seg Neutrophils # Man Lymphocytes # (Manual) D-Dimer ABG pH POC ABG pO2 ABG pO2 ABG HCO3 ABG O2 Saturation ABG Base Excess ABG Oxyhemoglobin ABG Sodium ABG Chloride ABG Glucose Oxyhemoglobin Carboxyhemoglobin Sodium Potassium 3.2 L Chloride 95.3 L Carbon Dioxide 32 H BUN 23 H Creatinine 0.2 L Glucose 103 H POC Glucose 204 H Hemoglobin A1c Ferritin AST ALT Alkaline Phosphatase Lactate Dehydrogenase C-Reactive Protein Total Protein Albumin Arterial Blood Glucose Coronavirus (PCR) 06/15/21 06/15/21 06/16/21 16:17 22:00 11:43 WBC MCH MCHC RDW Lymph % (Auto) Lymph # (Auto) [place] # (Auto) Baso # (Auto) Seg Neutrophils % Seg Neuts % (Manual) Lymphocytes % (Manual) Seg Neutrophils # Seg Neutrophils # Man Lymphocytes # (Manual) D-Dimer ABG pH POC ABG pO2 ABG pO2 ABG HCO3 ABG O2 Saturation ABG Base Excess ABG Oxyhemoglobin ABG Sodium ABG Chloride ABG Glucose Oxyhemoglobin Carboxyhemoglobin Sodium Potassium Chloride Carbon Dioxide BUN Creatinine Glucose POC Glucose 295 H 233 H 201 H Hemoglobin A1c Ferritin AST ALT Alkaline Phosphatase Lactate Dehydrogenase C-Reactive Protein Total Protein Albumin Arterial Blood Glucose Coronavirus (PCR) 06/16/21 06/16/21 06/17/21 17:21 21:27 07:12 WBC MCH MCHC RDW Lymph % (Auto) Lymph # (Auto) [place] # (Auto) Baso # (Auto) Seg Neutrophils % Seg Neuts % (Manual) Lymphocytes % (Manual) Seg Neutrophils # Seg Neutrophils # Man Lymphocytes # (Manual) D-Dimer ABG pH POC ABG pO2 ABG pO2 ABG HCO3 ABG O2 Saturation ABG Base Excess ABG Oxyhemoglobin ABG Sodium ABG Chloride ABG Glucose Oxyhemoglobin Carboxyhemoglobin Sodium Potassium Chloride Carbon Dioxide BUN Creatinine Glucose POC Glucose 299 H 290 H 67 L Hemoglobin A1c Ferritin AST ALT Alkaline Phosphatase Lactate Dehydrogenase C-Reactive Protein Total Protein Albumin Arterial Blood Glucose Coronavirus (PCR) 06/17/21 06/17/21 06/17/21 11:53 17:02 22:25 WBC MCH MCHC RDW Lymph % (Auto) Lymph # (Auto) [place] # (Auto) Baso # (Auto) Seg Neutrophils % Seg Neuts % (Manual) Lymphocytes % (Manual) Seg Neutrophils # Seg Neutrophils # Man Lymphocytes # (Manual) D-Dimer ABG pH POC ABG pO2 ABG pO2 ABG HCO3 ABG O2 Saturation ABG Base Excess ABG Oxyhemoglobin ABG Sodium ABG Chloride ABG Glucose Oxyhemoglobin Carboxyhemoglobin Sodium Potassium Chloride Carbon Dioxide BUN Creatinine Glucose POC Glucose 199 H 362 H 235 H Hemoglobin A1c Ferritin AST ALT Alkaline Phosphatase Lactate Dehydrogenase C-Reactive Protein Total Protein Albumin Arterial Blood Glucose Coronavirus (PCR) 06/18/21 06/18/21 06/18/21 08:00 11:48 16:40 WBC MCH MCHC RDW Lymph % (Auto) Lymph # (Auto) [place] # (Auto) Baso # (Auto) Seg Neutrophils % Seg Neuts % (Manual) Lymphocytes % (Manual) Seg Neutrophils # Seg Neutrophils # Man Lymphocytes # (Manual) D-Dimer ABG pH POC ABG pO2 ABG pO2 ABG HCO3 ABG O2 Saturation ABG Base Excess ABG Oxyhemoglobin ABG Sodium ABG Chloride ABG Glucose Oxyhemoglobin Carboxyhemoglobin Sodium Potassium Chloride Carbon Dioxide BUN Creatinine Glucose POC Glucose 62 L 211 H 305 H Hemoglobin A1c Ferritin AST ALT Alkaline Phosphatase Lactate Dehydrogenase C-Reactive Protein Total Protein Albumin Arterial Blood Glucose Coronavirus (PCR) 06/18/21 06/19/21 06/19/21 21:26 07:27 11:32 WBC MCH MCHC RDW Lymph % (Auto) Lymph # (Auto) [place] # (Auto) Baso # (Auto) Seg Neutrophils % Seg Neuts % (Manual) Lymphocytes % (Manual) Seg Neutrophils # Seg Neutrophils # Man Lymphocytes # (Manual) D-Dimer ABG pH POC ABG pO2 ABG pO2 ABG HCO3 ABG O2 Saturation ABG Base Excess ABG Oxyhemoglobin ABG Sodium ABG Chloride ABG Glucose Oxyhemoglobin Carboxyhemoglobin Sodium Potassium Chloride Carbon Dioxide BUN Creatinine Glucose POC Glucose 149 H 60 L 208 H Hemoglobin A1c Ferritin AST ALT Alkaline Phosphatase Lactate Dehydrogenase C-Reactive Protein Total Protein Albumin Arterial Blood Glucose Coronavirus (PCR) 06/19/21 06/19/21 06/20/21 16:06 22:28 07:48 WBC MCH MCHC RDW Lymph % (Auto) Lymph # (Auto) [place] # (Auto) Baso # (Auto) Seg Neutrophils % Seg Neuts % (Manual) Lymphocytes % (Manual) Seg Neutrophils # Seg Neutrophils # Man Lymphocytes # (Manual) D-Dimer ABG pH POC ABG pO2 ABG pO2 ABG HCO3 ABG O2 Saturation ABG Base Excess ABG Oxyhemoglobin ABG Sodium ABG Chloride ABG Glucose Oxyhemoglobin Carboxyhemoglobin Sodium Potassium Chloride Carbon Dioxide BUN Creatinine Glucose POC Glucose 266 H 166 H 58 L Hemoglobin A1c Ferritin AST ALT Alkaline Phosphatase Lactate Dehydrogenase C-Reactive Protein Total Protein Albumin Arterial Blood Glucose Coronavirus (PCR) 06/20/21 06/20/21 06/20/21 09:09 11:04 16:01 WBC MCH MCHC RDW Lymph % (Auto) Lymph # (Auto) [place] # (Auto) Baso # (Auto) Seg Neutrophils % Seg Neuts % (Manual) Lymphocytes % (Manual) Seg Neutrophils # Seg Neutrophils # Man Lymphocytes # (Manual) D-Dimer ABG pH POC ABG pO2 ABG pO2 ABG HCO3 ABG O2 Saturation ABG Base Excess ABG Oxyhemoglobin ABG Sodium ABG Chloride ABG Glucose Oxyhemoglobin Carboxyhemoglobin Sodium Potassium Chloride Carbon Dioxide BUN Creatinine Glucose POC Glucose 146 H 225 H 330 H Hemoglobin A1c Ferritin AST ALT Alkaline Phosphatase Lactate Dehydrogenase C-Reactive Protein Total Protein Albumin Arterial Blood Glucose Coronavirus (PCR) 06/20/21 06/21/21 06/21/21 20:46 06:45 06:45 WBC MCH MCHC RDW 20.0 H Lymph % (Auto) Lymph # (Auto) [place] # (Auto) Baso # (Auto) Seg Neutrophils % Seg Neuts % (Manual) Lymphocytes % (Manual) Seg Neutrophils # Seg Neutrophils # Man Lymphocytes # (Manual) D-Dimer ABG pH POC ABG pO2 ABG pO2 ABG HCO3 ABG O2 Saturation ABG Base Excess ABG Oxyhemoglobin ABG Sodium ABG Chloride ABG Glucose Oxyhemoglobin Carboxyhemoglobin Sodium Potassium 2.9 L* Chloride 95.0 L Carbon Dioxide 31 H BUN 23 H Creatinine 0.2 L Glucose 45 L POC Glucose 215 H Hemoglobin A1c Ferritin AST ALT Alkaline Phosphatase Lactate Dehydrogenase C-Reactive Protein Total Protein Albumin Arterial Blood Glucose Coronavirus (PCR) 06/21/21 06/21/21 06/21/21 07:38 09:06 12:40 WBC MCH MCHC RDW Lymph % (Auto) Lymph # (Auto) [place] # (Auto) Baso # (Auto) Seg Neutrophils % Seg Neuts % (Manual) Lymphocytes % (Manual) Seg Neutrophils # Seg Neutrophils # Man Lymphocytes # (Manual) D-Dimer ABG pH POC ABG pO2 ABG pO2 ABG HCO3 ABG O2 Saturation ABG Base Excess ABG Oxyhemoglobin ABG Sodium ABG Chloride ABG Glucose Oxyhemoglobin Carboxyhemoglobin Sodium Potassium Chloride Carbon Dioxide BUN Creatinine Glucose POC Glucose 50 L 196 H 205 H Hemoglobin A1c Ferritin AST ALT Alkaline Phosphatase Lactate Dehydrogenase C-Reactive Protein Total Protein Albumin Arterial Blood Glucose Coronavirus (PCR) 06/21/21 06/22/21 06/22/21 21:36 06:25 07:15 WBC MCH MCHC RDW Lymph % (Auto) Lymph # (Auto) [place] # (Auto) Baso # (Auto) Seg Neutrophils % Seg Neuts % (Manual) Lymphocytes % (Manual) Seg Neutrophils # Seg Neutrophils # Man Lymphocytes # (Manual) D-Dimer ABG pH POC ABG pO2 ABG pO2 ABG HCO3 ABG O2 Saturation ABG Base Excess ABG Oxyhemoglobin ABG Sodium ABG Chloride ABG Glucose Oxyhemoglobin Carboxyhemoglobin Sodium Potassium Chloride Carbon Dioxide BUN 20 H Creatinine 0.2 L Glucose POC Glucose 245 H 66 L Hemoglobin A1c Ferritin AST ALT Alkaline Phosphatase Lactate Dehydrogenase C-Reactive Protein Total Protein Albumin Arterial Blood Glucose Coronavirus (PCR) 06/22/21 06/22/21 06/22/21 11:03 16:07 22:03 WBC MCH MCHC RDW Lymph % (Auto) Lymph # (Auto) [place] # (Auto) Baso # (Auto) Seg Neutrophils % Seg Neuts % (Manual) Lymphocytes % (Manual) Seg Neutrophils # Seg Neutrophils # Man Lymphocytes # (Manual) D-Dimer ABG pH POC ABG pO2 ABG pO2 ABG HCO3 ABG O2 Saturation ABG Base Excess ABG Oxyhemoglobin ABG Sodium ABG Chloride ABG Glucose Oxyhemoglobin Carboxyhemoglobin Sodium Potassium Chloride Carbon Dioxide BUN Creatinine Glucose POC Glucose 184 H 326 H 138 H Hemoglobin A1c Ferritin AST ALT Alkaline Phosphatase Lactate Dehydrogenase C-Reactive Protein Total Protein Albumin Arterial Blood Glucose Coronavirus (PCR) 06/23/21 06/23/21 06/23/21 07:19 10:34 16:35 WBC MCH MCHC RDW Lymph % (Auto) Lymph # (Auto) [place] # (Auto) Baso # (Auto) Seg Neutrophils % Seg Neuts % (Manual) Lymphocytes % (Manual) Seg Neutrophils # Seg Neutrophils # Man Lymphocytes # (Manual) D-Dimer ABG pH POC ABG pO2 ABG pO2 ABG HCO3 ABG O2 Saturation ABG Base Excess ABG Oxyhemoglobin ABG Sodium ABG Chloride ABG Glucose Oxyhemoglobin Carboxyhemoglobin Sodium Potassium Chloride Carbon Dioxide BUN Creatinine Glucose POC Glucose 69 L 218 H 326 H Hemoglobin A1c Ferritin AST ALT Alkaline Phosphatase Lactate Dehydrogenase C-Reactive Protein Total Protein Albumin Arterial Blood Glucose Coronavirus (PCR) 06/23/21 06/24/21 06/24/21 22:44 11:41 16:54 WBC MCH MCHC RDW Lymph % (Auto) Lymph # (Auto) [place] # (Auto) Baso # (Auto) Seg Neutrophils % Seg Neuts % (Manual) Lymphocytes % (Manual) Seg Neutrophils # Seg Neutrophils # Man Lymphocytes # (Manual) D-Dimer ABG pH POC ABG pO2 ABG pO2 ABG HCO3 ABG O2 Saturation ABG Base Excess ABG Oxyhemoglobin ABG Sodium ABG Chloride ABG Glucose Oxyhemoglobin Carboxyhemoglobin Sodium Potassium Chloride Carbon Dioxide BUN Creatinine Glucose POC Glucose 252 H 217 H 357 H Hemoglobin A1c Ferritin AST ALT Alkaline Phosphatase Lactate Dehydrogenase C-Reactive Protein Total Protein Albumin Arterial Blood Glucose Coronavirus (PCR) 06/24/21 06/25/21 06/25/21 20:40 11:51 16:47 WBC MCH MCHC RDW Lymph % (Auto) Lymph # (Auto) [place] # (Auto) Baso # (Auto) Seg Neutrophils % Seg Neuts % (Manual) Lymphocytes % (Manual) Seg Neutrophils # Seg Neutrophils # Man Lymphocytes # (Manual) D-Dimer ABG pH POC ABG pO2 ABG pO2 ABG HCO3 ABG O2 Saturation ABG Base Excess ABG Oxyhemoglobin ABG Sodium ABG Chloride ABG Glucose Oxyhemoglobin Carboxyhemoglobin Sodium Potassium Chloride Carbon Dioxide BUN Creatinine Glucose POC Glucose 239 H 182 H 229 H Hemoglobin A1c Ferritin AST ALT Alkaline Phosphatase Lactate Dehydrogenase C-Reactive Protein Total Protein Albumin Arterial Blood Glucose Coronavirus (PCR) 06/25/21 06/26/21 06/26/21 22:27 07:20 12:19 WBC MCH MCHC RDW Lymph % (Auto) Lymph # (Auto) [place] # (Auto) Baso # (Auto) Seg Neutrophils % Seg Neuts % (Manual) Lymphocytes % (Manual) Seg Neutrophils # Seg Neutrophils # Man Lymphocytes # (Manual) D-Dimer ABG pH POC ABG pO2 ABG pO2 ABG HCO3 ABG O2 Saturation ABG Base Excess ABG Oxyhemoglobin ABG Sodium ABG Chloride ABG Glucose Oxyhemoglobin Carboxyhemoglobin Sodium Potassium 3.2 L D Chloride Carbon Dioxide BUN 20 H Creatinine 0.3 L Glucose POC Glucose 209 H 273 H Hemoglobin A1c Ferritin AST ALT 77 H Alkaline Phosphatase Lactate Dehydrogenase C-Reactive Protein Total Protein Albumin 3.3 L Arterial Blood Glucose Coronavirus (PCR) 06/26/21 06/26/21 06/27/21 16:52 20:55 07:14 WBC MCH MCHC RDW Lymph % (Auto) Lymph # (Auto) [place] # (Auto) Baso # (Auto) Seg Neutrophils % Seg Neuts % (Manual) Lymphocytes % (Manual) Seg Neutrophils # Seg Neutrophils # Man Lymphocytes # (Manual) D-Dimer ABG pH POC ABG pO2 ABG pO2 ABG HCO3 ABG O2 Saturation ABG Base Excess ABG Oxyhemoglobin ABG Sodium ABG Chloride ABG Glucose Oxyhemoglobin Carboxyhemoglobin Sodium Potassium Chloride Carbon Dioxide 31 H BUN 19 H Creatinine 0.2 L Glucose 112 H POC Glucose 326 H 220 H Hemoglobin A1c Ferritin AST ALT Alkaline Phosphatase Lactate Dehydrogenase C-Reactive Protein Total Protein Albumin Arterial Blood Glucose Coronavirus (PCR) 06/27/21 06/27/21 06/27/21 07:29 10:54 15:49 WBC MCH MCHC RDW Lymph % (Auto) Lymph # (Auto) [place] # (Auto) Baso # (Auto) Seg Neutrophils % Seg Neuts % (Manual) Lymphocytes % (Manual) Seg Neutrophils # Seg Neutrophils # Man Lymphocytes # (Manual) D-Dimer ABG pH POC ABG pO2 ABG pO2 ABG HCO3 ABG O2 Saturation ABG Base Excess ABG Oxyhemoglobin ABG Sodium ABG Chloride ABG Glucose Oxyhemoglobin Carboxyhemoglobin Sodium Potassium Chloride Carbon Dioxide BUN Creatinine Glucose POC Glucose 115 H 228 H 240 H Hemoglobin A1c Ferritin AST ALT Alkaline Phosphatase Lactate Dehydrogenase C-Reactive Protein Total Protein Albumin Arterial Blood Glucose Coronavirus (PCR) 06/28/21 06/28/21 06/28/21 05:43 05:43 07:13 WBC MCH 33 H MCHC RDW 19.8 H Lymph % (Auto) Lymph # (Auto) [place] # (Auto) Baso # (Auto) Seg Neutrophils % Seg Neuts % (Manual) Lymphocytes % (Manual) Seg Neutrophils # Seg Neutrophils # Man Lymphocytes # (Manual) D-Dimer ABG pH POC ABG pO2 ABG pO2 ABG HCO3 ABG O2 Saturation ABG Base Excess ABG Oxyhemoglobin ABG Sodium ABG Chloride ABG Glucose Oxyhemoglobin Carboxyhemoglobin Sodium Potassium 3.3 L Chloride Carbon Dioxide BUN 22 H Creatinine 0.2 L Glucose POC Glucose 69 L Hemoglobin A1c Ferritin AST ALT 63 H Alkaline Phosphatase Lactate Dehydrogenase C-Reactive Protein Total Protein Albumin 3.3 L Arterial Blood Glucose Coronavirus (PCR) 06/28/21 06/28/21 06/28/21 12:18 15:37 21:01 WBC MCH MCHC RDW Lymph % (Auto) Lymph # (Auto) [place] # (Auto) Baso # (Auto) Seg Neutrophils % Seg Neuts % (Manual) Lymphocytes % (Manual) Seg Neutrophils # Seg Neutrophils # Man Lymphocytes # (Manual) D-Dimer ABG pH POC ABG pO2 ABG pO2 ABG HCO3 ABG O2 Saturation ABG Base Excess ABG Oxyhemoglobin ABG Sodium ABG Chloride ABG Glucose Oxyhemoglobin Carboxyhemoglobin Sodium Potassium Chloride Carbon Dioxide BUN Creatinine Glucose POC Glucose 154 H 201 H 191 H Hemoglobin A1c Ferritin AST ALT Alkaline Phosphatase Lactate Dehydrogenase C-Reactive Protein Total Protein Albumin Arterial Blood Glucose Coronavirus (PCR) 06/29/21 06/29/21 06/29/21 11:55 15:47 21:06 WBC MCH MCHC RDW Lymph % (Auto) Lymph # (Auto) [place] # (Auto) Baso # (Auto) Seg Neutrophils % Seg Neuts % (Manual) Lymphocytes % (Manual) Seg Neutrophils # Seg Neutrophils # Man Lymphocytes # (Manual) D-Dimer ABG pH POC ABG pO2 ABG pO2 ABG HCO3 ABG O2 Saturation ABG Base Excess ABG Oxyhemoglobin ABG Sodium ABG Chloride ABG Glucose Oxyhemoglobin Carboxyhemoglobin Sodium Potassium Chloride Carbon Dioxide BUN Creatinine Glucose POC Glucose 238 H 249 H 155 H Hemoglobin A1c Ferritin AST ALT Alkaline Phosphatase Lactate Dehydrogenase C-Reactive Protein Total Protein Albumin Arterial Blood Glucose Coronavirus (PCR) 06/30/21 06/30/21 06/30/21 04:00 07:50 11:50 WBC MCH MCHC RDW Lymph % (Auto) Lymph # (Auto) [place] # (Auto) Baso # (Auto) Seg Neutrophils % Seg Neuts % (Manual) Lymphocytes % (Manual) Seg Neutrophils # Seg Neutrophils # Man Lymphocytes # (Manual) D-Dimer ABG pH POC ABG pO2 ABG pO2 ABG HCO3 ABG O2 Saturation ABG Base Excess ABG Oxyhemoglobin ABG Sodium ABG Chloride ABG Glucose Oxyhemoglobin Carboxyhemoglobin Sodium Potassium 3.5 L Chloride Carbon Dioxide BUN 18 H Creatinine 0.3 L Glucose 111 H POC Glucose 117 H 250 H Hemoglobin A1c Ferritin AST ALT Alkaline Phosphatase Lactate Dehydrogenase C-Reactive Protein Total Protein Albumin Arterial Blood Glucose Coronavirus (PCR) 06/30/21 06/30/21 07/01/21 16:05 21:02 07:26 WBC MCH MCHC RDW Lymph % (Auto) Lymph # (Auto) [place] # (Auto) Baso # (Auto) Seg Neutrophils % Seg Neuts % (Manual) Lymphocytes % (Manual) Seg Neutrophils # Seg Neutrophils # Man Lymphocytes # (Manual) D-Dimer ABG pH POC ABG pO2 ABG pO2 ABG HCO3 ABG O2 Saturation ABG Base Excess ABG Oxyhemoglobin ABG Sodium ABG Chloride ABG Glucose Oxyhemoglobin Carboxyhemoglobin Sodium Potassium Chloride Carbon Dioxide BUN Creatinine Glucose POC Glucose 250 H 217 H 111 H Hemoglobin A1c Ferritin AST ALT Alkaline Phosphatase Lactate Dehydrogenase C-Reactive Protein Total Protein Albumin Arterial Blood Glucose Coronavirus (PCR) 07/01/21 07/01/21 07/01/21 11:06 15:48 21:31 WBC MCH MCHC RDW Lymph % (Auto) Lymph # (Auto) [place] # (Auto) Baso # (Auto) Seg Neutrophils % Seg Neuts % (Manual) Lymphocytes % (Manual) Seg Neutrophils # Seg Neutrophils # Man Lymphocytes # (Manual) D-Dimer ABG pH POC ABG pO2 ABG pO2 ABG HCO3 ABG O2 Saturation ABG Base Excess ABG Oxyhemoglobin ABG Sodium ABG Chloride ABG Glucose Oxyhemoglobin Carboxyhemoglobin Sodium Potassium Chloride Carbon Dioxide BUN Creatinine Glucose POC Glucose 229 H 239 H 199 H Hemoglobin A1c Ferritin AST ALT Alkaline Phosphatase Lactate Dehydrogenase C-Reactive Protein Total Protein Albumin Arterial Blood Glucose Coronavirus (PCR) 07/02/21 07/02/21 07/02/21 11:50 16:44 21:49 WBC MCH MCHC RDW Lymph % (Auto) Lymph # (Auto) [place] # (Auto) Baso # (Auto) Seg Neutrophils % Seg Neuts % (Manual) Lymphocytes % (Manual) Seg Neutrophils # Seg Neutrophils # Man Lymphocytes # (Manual) D-Dimer ABG pH POC ABG pO2 ABG pO2 ABG HCO3 ABG O2 Saturation ABG Base Excess ABG Oxyhemoglobin ABG Sodium ABG Chloride ABG Glucose Oxyhemoglobin Carboxyhemoglobin Sodium Potassium Chloride Carbon Dioxide BUN Creatinine Glucose POC Glucose 230 H 203 H 197 H Hemoglobin A1c Ferritin AST ALT Alkaline Phosphatase Lactate Dehydrogenase C-Reactive Protein Total Protein Albumin Arterial Blood Glucose Coronavirus (PCR) 07/03/21 07/03/21 07/03/21 05:46 05:46 11:59 WBC MCH MCHC RDW 19.6 H Lymph % (Auto) Lymph # (Auto) [place] # (Auto) Baso # (Auto) Seg Neutrophils % Seg Neuts % (Manual) Lymphocytes % (Manual) Seg Neutrophils # Seg Neutrophils # Man Lymphocytes # (Manual) D-Dimer ABG pH POC ABG pO2 ABG pO2 ABG HCO3 ABG O2 Saturation ABG Base Excess ABG Oxyhemoglobin ABG Sodium ABG Chloride ABG Glucose Oxyhemoglobin Carboxyhemoglobin Sodium Potassium 3.2 L Chloride Carbon Dioxide BUN Creatinine 0.3 L Glucose POC Glucose 145 H Hemoglobin A1c Ferritin AST ALT Alkaline Phosphatase Lactate Dehydrogenase C-Reactive Protein Total Protein Albumin Arterial Blood Glucose Coronavirus (PCR) 07/03/21 07/03/21 07/04/21 16:40 22:00 06:35 WBC MCH MCHC RDW Lymph % (Auto) Lymph # (Auto) [place] # (Auto) Baso # (Auto) Seg Neutrophils % Seg Neuts % (Manual) Lymphocytes % (Manual) Seg Neutrophils # Seg Neutrophils # Man Lymphocytes # (Manual) D-Dimer ABG pH POC ABG pO2 ABG pO2 ABG HCO3 ABG O2 Saturation ABG Base Excess ABG Oxyhemoglobin ABG Sodium ABG Chloride ABG Glucose Oxyhemoglobin Carboxyhemoglobin Sodium Potassium Chloride Carbon Dioxide BUN Creatinine 0.3 L Glucose 118 H POC Glucose 176 H 127 H Hemoglobin A1c Ferritin AST ALT Alkaline Phosphatase Lactate Dehydrogenase C-Reactive Protein Total Protein Albumin Arterial Blood Glucose Coronavirus (PCR) 07/04/21 07/04/21 07/05/21 12:30 16:38 08:37 WBC MCH MCHC RDW Lymph % (Auto) Lymph # (Auto) [place] # (Auto) Baso # (Auto) Seg Neutrophils % Seg Neuts % (Manual) Lymphocytes % (Manual) Seg Neutrophils # Seg Neutrophils # Man Lymphocytes # (Manual) D-Dimer ABG pH POC ABG pO2 ABG pO2 ABG HCO3 ABG O2 Saturation ABG Base Excess ABG Oxyhemoglobin ABG Sodium ABG Chloride ABG Glucose Oxyhemoglobin Carboxyhemoglobin Sodium Potassium Chloride Carbon Dioxide BUN Creatinine Glucose POC Glucose 162 H 205 H 115 H Hemoglobin A1c Ferritin AST ALT Alkaline Phosphatase Lactate Dehydrogenase C-Reactive Protein Total Protein Albumin Arterial Blood Glucose Coronavirus (PCR) 07/05/21 07/05/21 07/05/21 10:57 16:42 21:14 WBC MCH MCHC RDW Lymph % (Auto) Lymph # (Auto) [place] # (Auto) Baso # (Auto) Seg Neutrophils % Seg Neuts % (Manual) Lymphocytes % (Manual) Seg Neutrophils # Seg Neutrophils # Man Lymphocytes # (Manual) D-Dimer ABG pH POC ABG pO2 ABG pO2 ABG HCO3 ABG O2 Saturation ABG Base Excess ABG Oxyhemoglobin ABG Sodium ABG Chloride ABG Glucose Oxyhemoglobin Carboxyhemoglobin Sodium Potassium Chloride Carbon Dioxide BUN Creatinine Glucose POC Glucose 151 H 184 H 130 H Hemoglobin A1c Ferritin AST ALT Alkaline Phosphatase Lactate Dehydrogenase C-Reactive Protein Total Protein Albumin Arterial Blood Glucose Coronavirus (PCR) 07/06/21 07/06/21 07/06/21 07:31 11:49 16:46 WBC MCH MCHC RDW Lymph % (Auto) Lymph # (Auto) [place] # (Auto) Baso # (Auto) Seg Neutrophils % Seg Neuts % (Manual) Lymphocytes % (Manual) Seg Neutrophils # Seg Neutrophils # Man Lymphocytes # (Manual) D-Dimer ABG pH POC ABG pO2 ABG pO2 ABG HCO3 ABG O2 Saturation ABG Base Excess ABG Oxyhemoglobin ABG Sodium ABG Chloride ABG Glucose Oxyhemoglobin Carboxyhemoglobin Sodium Potassium Chloride Carbon Dioxide BUN Creatinine Glucose POC Glucose 106 H 173 H 205 H Hemoglobin A1c Ferritin AST ALT Alkaline Phosphatase Lactate Dehydrogenase C-Reactive Protein Total Protein Albumin Arterial Blood Glucose Coronavirus (PCR) 07/06/21 07/07/21 07/07/21 21:38 06:00 06:00 WBC 16.1 H MCH MCHC RDW 18.8 H Lymph % (Auto) Lymph # (Auto) [place] # (Auto) 1.1 H Baso # (Auto) 0.2 H Seg Neutrophils % 74.9 H Seg Neuts % (Manual) Lymphocytes % (Manual) Seg Neutrophils # 12.1 H Seg Neutrophils # Man Lymphocytes # (Manual) D-Dimer ABG pH POC ABG pO2 ABG pO2 ABG HCO3 ABG O2 Saturation ABG Base Excess ABG Oxyhemoglobin ABG Sodium ABG Chloride ABG Glucose Oxyhemoglobin Carboxyhemoglobin Sodium Potassium 3.5 L D Chloride Carbon Dioxide BUN 6 L Creatinine < 0.2 L Glucose 106 H POC Glucose 120 H Hemoglobin A1c Ferritin AST ALT Alkaline Phosphatase Lactate Dehydrogenase C-Reactive Protein Total Protein Albumin Arterial Blood Glucose Coronavirus (PCR) 07/07/21 07/07/21 07/07/21 07:10 11:53 15:53 WBC MCH MCHC RDW Lymph % (Auto) Lymph # (Auto) [place] # (Auto) Baso # (Auto) Seg Neutrophils % Seg Neuts % (Manual) Lymphocytes % (Manual) Seg Neutrophils # Seg Neutrophils # Man Lymphocytes # (Manual) D-Dimer ABG pH POC ABG pO2 ABG pO2 ABG HCO3 ABG O2 Saturation ABG Base Excess ABG Oxyhemoglobin ABG Sodium ABG Chloride ABG Glucose Oxyhemoglobin Carboxyhemoglobin Sodium Potassium Chloride Carbon Dioxide BUN Creatinine Glucose POC Glucose 132 H 169 H 242 H Hemoglobin A1c Ferritin AST ALT Alkaline Phosphatase Lactate Dehydrogenase C-Reactive Protein Total Protein Albumin Arterial Blood Glucose Coronavirus (PCR) 07/07/21 07/08/21 07/08/21 21:41 08:09 12:20 WBC MCH MCHC RDW Lymph % (Auto) Lymph # (Auto) [place] # (Auto) Baso # (Auto) Seg Neutrophils % Seg Neuts % (Manual) Lymphocytes % (Manual) Seg Neutrophils # Seg Neutrophils # Man Lymphocytes # (Manual) D-Dimer ABG pH POC ABG pO2 ABG pO2 ABG HCO3 ABG O2 Saturation ABG Base Excess ABG Oxyhemoglobin ABG Sodium ABG Chloride ABG Glucose Oxyhemoglobin Carboxyhemoglobin Sodium Potassium Chloride Carbon Dioxide BUN Creatinine Glucose POC Glucose 128 H 132 H 179 H Hemoglobin A1c Ferritin AST ALT Alkaline Phosphatase Lactate Dehydrogenase C-Reactive Protein Total Protein Albumin Arterial Blood Glucose Coronavirus (PCR) 07/08/21 07/08/21 07/08/21 16:37 21:45 22:44 WBC MCH MCHC RDW Lymph % (Auto) Lymph # (Auto) [place] # (Auto) Baso # (Auto) Seg Neutrophils % Seg Neuts % (Manual) Lymphocytes % (Manual) Seg Neutrophils # Seg Neutrophils # Man Lymphocytes # (Manual) D-Dimer ABG pH POC ABG pO2 ABG pO2 ABG HCO3 ABG O2 Saturation ABG Base Excess ABG Oxyhemoglobin ABG Sodium ABG Chloride ABG Glucose Oxyhemoglobin Carboxyhemoglobin Sodium Potassium Chloride Carbon Dioxide BUN Creatinine Glucose POC Glucose 192 H 51 L 137 H Hemoglobin A1c Ferritin AST ALT Alkaline Phosphatase Lactate Dehydrogenase C-Reactive Protein Total Protein Albumin Arterial Blood Glucose Coronavirus (PCR) 07/09/21 07/09/21 07/09/21 04:45 04:45 04:45 WBC MCH MCHC RDW 18.3 H Lymph % (Auto) Lymph # (Auto) [place] # (Auto) Baso # (Auto) Seg Neutrophils % Seg Neuts % (Manual) 82.0 H Lymphocytes % (Manual) 13.0 L Seg Neutrophils # Seg Neutrophils # Man 7.8 H Lymphocytes # (Manual) D-Dimer 638.35 H ABG pH POC ABG pO2 ABG pO2 ABG HCO3 ABG O2 Saturation ABG Base Excess ABG Oxyhemoglobin ABG Sodium ABG Chloride ABG Glucose Oxyhemoglobin Carboxyhemoglobin Sodium Potassium Chloride 96.9 L Carbon Dioxide 35 H BUN Creatinine 0.2 L Glucose 135 H POC Glucose Hemoglobin A1c Ferritin AST ALT Alkaline Phosphatase Lactate Dehydrogenase C-Reactive Protein 4.30 H Total Protein Albumin Arterial Blood Glucose Coronavirus (PCR) 07/09/21 07/09/21 05:19 07:36 WBC MCH MCHC RDW Lymph % (Auto) Lymph # (Auto) [place] # (Auto) Baso # (Auto) Seg Neutrophils % Seg Neuts % (Manual) Lymphocytes % (Manual) Seg Neutrophils # Seg Neutrophils # Man Lymphocytes # (Manual) D-Dimer ABG pH POC ABG pO2 ABG pO2 ABG HCO3 ABG O2 Saturation ABG Base Excess ABG Oxyhemoglobin ABG Sodium ABG Chloride ABG Glucose Oxyhemoglobin Carboxyhemoglobin Sodium Potassium Chloride Carbon Dioxide BUN Creatinine Glucose POC Glucose 135 H 148 H Hemoglobin A1c Ferritin AST ALT Alkaline Phosphatase Lactate Dehydrogenase C-Reactive Protein Total Protein Albumin Arterial Blood Glucose Coronavirus (PCR)
[2021-07-09] MEDS ORDERED: FUROSEMIDE 40 MG/4 ML INJ IV NR (11:30)
[2021-07-09] MEDS: ASCORBIC ACID 500 MG TAB PO SCH (12:54)
[2021-07-09] MEDS: levoFLOXacin 750 MG TAB PO SCH (12:54)
[2021-07-09] MEDS: ZINC SULFATE 220 MG CAP PO SCH ×2 (12:54→23:10)
[2021-07-09] MEDS: predniSONE 10 MG TAB PO SCH (12:54)
[2021-07-09] MEDS: CHOLECALCIFEROL (VIT D3) 1000 UNIT (25 mcg) TAB PO SCH (12:55)
[2021-07-09] MEDS: INSULIN GLARGINE 100 UNITS/ML SUB-Q SCH (12:55)
[2021-07-09] MEDS: ALPRAZolam 1 MG TAB PO SCH ×2 (12:55→23:09)
[2021-07-09] MEDS: ENOXAPARIN 40 MG/0.4 ML INJ SUB-Q SCH (23:09)
[2021-07-10 06:08] LABS: BUN/Creatinine Ratio 65; Blood Urea Nitrogen 13 mg/dL (7-17); Calcium 9.6 mg/dL (8.4-10.2); Hemolysis Index 7
--- NOTE | 2021-07-10 07:35 | Progress Note ---
Assessment and Plan Assessment and plan: #Acute hypoxic respiratory failure -Currently on high flow nasal cannula (40 L, 100% FiO2) -Continue prednisone 10 mg daily -Pulmonology following, assistance appreciated -Referral sent for LTACH (patient stay 85 days) #Heart failure with preserved ejection fraction -TTE: LVEF 55-60% with diastolic dysfunction -will continue to monitor for signs of fluid overload #COVID-19 infection -Continue Covid vitamins #Type 2 diabetes -Continue Lantus 15 units daily and sliding scale insulin #Dysuria #Possible UTI -Improving -Urinalysis ordered 07/09, not collected -last day of Levaquin #Anxiety -Stable -Continue Xanax #DVT prophylaxis -Lovenox 40 daily #Deconditioning -Will benefit from SNF after prolonged hospital stay, Resolved issues #Sepsis secondary to COVID-19 #Iatrogenic diarrhea #Hypomagnesemia #Hyponatremia #Protein calorie malnutrition Disposition Plan: Continue medical management Total Time Spent with Patient (Minutes): 20 minutes History Interval history: No acute events overnight. Communicated with patient via phone translation. We discussed the results of the echocardiogram. She denies worsening shortness of breath, chest pain or discomfort. Hospitalist Physical - Physical exam Narrative exam: GENERAL: Well-developed well-nourished. Lying in bed in no acute distress. HEENT: High flow nasal cannula at 40L/100% CHEST/LUNGS: Coarse breath sounds bilaterally. HEART/CARDIOVASCULAR: RRR. No murmur, rubs or gallops appreciated. ABDOMEN: +BS. NT/ND. EXTREMITIES: No cyanosis, clubbing or edema. PSYCH: Cooperative. - Constitutional Vitals: Temp Pulse Resp BP Pulse Ox 98.3 F 94 H 20 115/74 96 07/10/21 05:39 07/10/21 05:39 07/10/21 05:39 07/10/21 05:39 07/10/21 06:10 General appearance: Present: no acute distress, well-nourished, obese Results - Labs CBC & Chem 7: 07/09/21 04:45 07/10/21 05:40 Labs: Laboratory Last Values WBC 9.5 K/mm3 (4.5-11.0) 07/09/21 04:45 RBC 3.88 M/mm3 (3.65-5.03) 07/09/21 04:45 Hgb 11.8 gm/dl (10.1-14.3) 07/09/21 04:45 Hct 36.8 % (30.3-42.9) 07/09/21 04:45 MCV 95 fl (79-97) 07/09/21 04:45 MCH 30 pg (28-32) 07/09/21 04:45 MCHC 32 % (30-34) 07/09/21 04:45 RDW 18.3 % (13.2-15.2) H 07/09/21 04:45 Plt Count 299 K/mm3 (140-440) 07/09/21 04:45 Lymph % (Auto) 15.6 % (13.4-35.0) 07/07/21 06:00 [place] % (Auto) 6.6 % (0.0-7.3) 07/07/21 06:00 Eos % (Auto) 1.9 % (0.0-4.3) 07/07/21 06:00 Baso % (Auto) 1.0 % (0.0-1.8) 07/07/21 06:00 Lymph # (Auto) 2.5 K/mm3 (1.2-5.4) 07/07/21 06:00 [place] # (Auto) 1.1 K/mm3 (0.0-0.8) H 07/07/21 06:00 Eos # (Auto) 0.3 K/mm3 (0.0-0.4) 07/07/21 06:00 Baso # (Auto) 0.2 K/mm3 (0.0-0.1) H 07/07/21 06:00 Add Manual Diff Complete 07/09/21 04:45 Total Counted 100 07/09/21 04:45 Seg Neutrophils % 74.9 % (40.0-70.0) H 07/07/21 06:00 Seg Neuts % (Manual) 82.0 % (40.0-70.0) H 07/09/21 04:45 Band Neutrophils % 1.0 % 05/12/21 04:05 Lymphocytes % (Manual) 13.0 % (13.4-35.0) L 07/09/21 04:45 Monocytes % (Manual) 3.0 % (0.0-7.3) 07/09/21 04:45 Eosinophils % (Manual) 2.0 % (0.0-4.3) 07/09/21 04:45 Nucleated RBC % Not Reportable 07/09/21 04:45 Seg Neutrophils # 12.1 K/mm3 (1.8-7.7) H 07/07/21 06:00 Seg Neutrophils # Man 7.8 K/mm3 (1.8-7.7) H 07/09/21 04:45 Band Neutrophils # 0.0 K/mm3 07/09/21 04:45 Lymphocytes # (Manual) 1.2 K/mm3 (1.2-5.4) 07/09/21 04:45 Abs React Lymphs (Man) 0.0 K/mm3 07/09/21 04:45 Monocytes # (Manual) 0.3 K/mm3 (0.0-0.8) 07/09/21 04:45 Eosinophils # (Manual) 0.2 K/mm3 (0.0-0.4) 07/09/21 04:45 Basophils # (Manual) 0.0 K/mm3 (0.0-0.1) 07/09/21 04:45 Metamyelocytes # 0.0 K/mm3 07/09/21 04:45 Myelocytes # 0.0 K/mm3 07/09/21 04:45 Promyelocytes # 0.0 K/mm3 07/09/21 04:45 Blast Cells # 0.0 K/mm3 07/09/21 04:45 WBC Morphology Not Reportable 07/09/21 04:45 Hypersegmented Neuts Not Reportable 07/09/21 04:45 Hyposegmented Neuts Not Reportable 07/09/21 04:45 Hypogranular Neuts Not Reportable 07/09/21 04:45 Smudge Cells Not Reportable 07/09/21 04:45 Toxic Granulation Not Reportable 07/09/21 04:45 Toxic Vacuolation Not Reportable 07/09/21 04:45 Dohle Bodies Not Reportable 07/09/21 04:45 Pelger-Huet Anomaly Not Reportable 07/09/21 04:45 Janelle Rods Not Reportable 07/09/21 04:45 Platelet Estimate Consistent w auto 07/09/21 04:45 Clumped Platelets Not Reportable 07/09/21 04:45 Plt Clumps, EDTA Not Reportable 07/09/21 04:45 Large Platelets Not Reportable 07/09/21 04:45 Giant Platelets Rare 07/09/21 04:45 Platelet Satelliting Not Reportable 07/09/21 04:45 Plt Morphology Comment Not Reportable 07/09/21 04:45 RBC Morphology Not Reportable 07/09/21 04:45 Dimorphic RBCs Not Reportable 07/09/21 04:45 Polychromasia Not Reportable 07/09/21 04:45 Hypochromasia Few 07/09/21 04:45 Poikilocytosis Not Reportable 07/09/21 04:45 Anisocytosis Not Reportable 07/09/21 04:45 Microcytosis Not Reportable 07/09/21 04:45 Macrocytosis Not Reportable 07/09/21 04:45 Spherocytes Not Reportable 07/09/21 04:45 Pappenheimer Bodies Not Reportable 07/09/21 04:45 Sickle Cells Not Reportable 07/09/21 04:45 Target Cells Not Reportable 07/09/21 04:45 Tear Drop Cells Not Reportable 07/09/21 04:45 Ovalocytes Not Reportable 07/09/21 04:45 Stomatocytes 1+ 07/09/21 04:45 Helmet Cells Not Reportable 07/09/21 04:45 [place] Bodies Not Reportable 07/09/21 04:45 [place] Rings Not Reportable 07/09/21 04:45 Crow Cells Not Reportable 07/09/21 04:45 Bite Cells Not Reportable 07/09/21 04:45 Crenated Cell Not Reportable 07/09/21 04:45 Elliptocytes Not Reportable 07/09/21 04:45 Acanthocytes (Spur) Not Reportable 07/09/21 04:45 Rouleaux Not Reportable 07/09/21 04:45 Hemoglobin C Crystals Not Reportable 07/09/21 04:45 Schistocytes Not Reportable 07/09/21 04:45 Malaria parasites Not Reportable 07/09/21 04:45 Justin Bodies Not Reportable 07/09/21 04:45 Hem Pathologist Commnt No 07/09/21 04:45 D-Dimer 638.35 ng/mlDDU (0-234) H 07/09/21 04:45 ABG pH 7.403 pH Units (7.350-7.450) 05/14/21 02:23 POC ABG pCO2 45.4 mmHg (32.0-48.0) 05/03/21 04:49 ABG pCO2 50.2 mm Hg 05/14/21 02:23 POC ABG pO2 65.3 mmHg (83-108) L 05/03/21 04:49 ABG pO2 130.3 mm Hg (80.0-90.0) H 05/14/21 02:23 POC ABG HCO3 18.5 05/03/21 04:49 ABG HCO3 30.6 mmol/L (20.0-26.0) H 05/14/21 02:23 ABG O2 Saturation 98.5 % (95.0-99.0) 05/14/21 02:23 ABG O2 Content 17.9 (0.0-44) 05/14/21 02:23 POC ABG Base Excess -8.9 05/03/21 04:49 ABG Base Excess 4.9 mmol/L (-2.0-3.0) H 05/14/21 02:23 ABG Hemoglobin 13.0 gm/dl (12.0-16.0) 05/14/21 02:23 ABG Oxyhemoglobin 87.8 (94-98) L 05/03/21 04:49 ABG Carboxyhemoglobin 1.4 % (0.0-5.0) 05/14/21 02:23 ABG Methemoglobin 0.6 % (0.0-1.5) 05/14/21 02:23 ABG Sodium 133.0 mmol/L (136.0-145.0) L 05/03/21 04:49 ABG Potassium 3.9 mmol/L (3.40-4.50) 05/03/21 04:49 ABG Chloride 97.0 mmol/L (98-107) L 05/03/21 04:49 ABG Glucose 403 mg/dL (65-95) H 05/03/21 04:49 Oxyhemoglobin 96.5 % (95.0-99.0) 05/14/21 02:23 Carboxyhemoglobin 0.6 (0.5-1.5) 05/03/21 04:49 FiO2 90 % 05/14/21 02:23 FiO2 % 100.0 05/03/21 04:49 Sodium 143 mmol/L (137-145) 07/10/21 05:40 Potassium 3.3 mmol/L (3.6-5.0) L 07/10/21 05:40 Chloride 95.1 mmol/L (98-107) L 07/10/21 05:40 Carbon Dioxide 39 mmol/L (22-30) H 07/10/21 05:40 Anion Gap 12 mmol/L 07/10/21 05:40 BUN 13 mg/dL (7-17) 07/10/21 05:40 Creatinine 0.2 mg/dL (0.6-1.2) L 07/10/21 05:40 Estimated GFR > 60 ml/min 07/10/21 05:40 BUN/Creatinine Ratio 65 % 07/10/21 05:40 Glucose 122 mg/dL (65-100) H 07/10/21 05:40 POC Glucose 196 mg/dL (70-105) H 07/09/21 21:12 Hemoglobin A1c 8.5 % (4-6) H 04/18/21 07:36 Calcium 9.6 mg/dL (8.4-10.2) 07/10/21 05:40 Phosphorus 3.60 mg/dL (2.5-4.5) 07/09/21 04:45 Magnesium 1.90 mg/dL (1.7-2.3) 07/09/21 04:45 Ferritin 155.9 ng/mL (10.0-200.0) 07/09/21 04:45 Total Bilirubin 0.30 mg/dL (0.1-1.2) 06/28/21 05:43 AST 19 units/L (5-40) 06/28/21 05:43 ALT 63 units/L (7-56) H 06/28/21 05:43 Alkaline Phosphatase 61 units/L (35-129) 06/28/21 05:43 Lactate Dehydrogenase 475 units/L (91-180) H 06/05/21 05:26 C-Reactive Protein 4.30 mg/dL (0.00-1.30) H 07/09/21 04:45 NT-Pro-B Natriuret Pep 59.45 pg/mL (0-450) 07/07/21 13:40 Total Protein 6.5 g/dL (6.3-8.2) 06/28/21 05:43 Albumin 3.3 g/dL (3.9-5) L 06/28/21 05:43 Albumin/Globulin Ratio 1.0 % 06/28/21 05:43 Triglycerides < 9 mg/dL (2-149) 05/03/21 04:30 Procalcitonin < 0.05 ng/mL (<0.15) 05/23/21 09:50 Arterial Blood Glucose 403 mg/dL (65-95) H 05/03/21 04:49 Arterial Blood Ionized Calcium 4.9 mg/dL (4.6-5.3) 05/03/21 04:49 Coronavirus (PCR) Positive (Negative) A 06/05/21 08:30 Amos/IV: Voiding Method External Female Catheter Active Medications - Current Medications Current Medications: Generic Name Dose Route Start Last Admin Trade Name Freq PRN Reason Stop Dose Admin Acetaminophen 650 mg 07/02/21 17:48 07/09/21 23:20 Acetaminophen 325 Mg Tab PO 650 mg Q4H PRN Administration Pain, Mild (1-3) Albuterol 2.5 mg 04/16/21 13:39 04/21/21 20:39 Albuterol 2.5 Mg/3 Ml Nebu IH 2.5 mg Q4HRT PRN Administration Shortness Of Breath Alprazolam 2 mg 07/04/21 12:00 07/09/21 23:09 Alprazolam 1 Mg Tab PO 2 mg BID TUTU Administration Ascorbic Acid 500 mg 04/24/21 10:00 07/09/21 12:54 Ascorbic Acid 500 Mg Tab PO 500 mg QDAY TUTU Administration Cholecalciferol 1,000 unit 04/17/21 10:00 07/09/21 12:55 Cholecalciferol (Vit D3) 1000 Unit (25 Mcg) Tab PO 1,000 unit QDAY TUTU Administration Dextrose 50 ml 04/18/21 07:30 04/28/21 09:59 Dextrose 50% In Water (25gm) 50 Ml Syringe IV 50 ml Q30MIN PRN Administration Hypoglycemia Protocol Enoxaparin Sodium 40 mg 05/19/21 22:00 07/09/21 23:09 Enoxaparin 40 Mg/0.4 Ml Inj SUB-Q 40 mg QDAY@2200 TUTU Administration Protocol Insulin Glargine 15 units 10/12/21 10:00 07/09/21 12:55 Insulin Glargine 100 Units/Ml SUB-Q 15 units DAILY TUTU Administration Insulin Human Lispro 0 unit 05/18/21 12:00 07/09/21 23:10 Insulin Lispro 100 Unit/Ml SUB-Q 3 unit ACHS TUTU Administration Protocol Levofloxacin 750 mg 07/08/21 10:00 07/09/21 12:54 Levofloxacin 750 Mg Tab PO 07/10/21 10:01 750 mg Q24HR TUTU Administration Protocol Ondansetron HCl 4 mg 04/16/21 14:00 05/30/21 10:07 Ondansetron 4 Mg/2 Ml Inj IV 4 mg Q8H PRN Administration Nausea And Vomiting Potassium Chloride 40 meq 07/10/21 08:00 Potassium Chloride Er 20 Meq Tab PO 07/10/21 12:01 Q4H TUTU Prednisone 10 mg 07/03/21 10:00 07/09/21 12:54 Prednisone 10 Mg Tab PO 10 mg QDAY TUTU Administration Sodium Chloride 10 ml 04/16/21 22:00 07/09/21 23:11 Sodium Chloride 0.9% 10 Ml Flush Syringe IV 10 ml BID TUTU Administration Sodium Chloride 10 ml 04/16/21 13:39 05/22/21 15:21 Sodium Chloride 0.9% 10 Ml Flush Syringe IV 10 ml PRN PRN Administration LINE FLUSH Zinc Sulfate 220 mg 04/16/21 22:00 07/09/21 23:10 Zinc Sulfate 220 Mg Cap PO 220 mg BID TUTU Administration Zolpidem Tartrate 10 mg 05/26/21 08:56 07/04/21 22:00 Zolpidem 5 Mg Tab PO 10 mg QHS PRN Administration Insomnia Nutrition/Malnutrition Assess - Dietary Evaluation Nutrition/Malnutrition Findings: Nutrition Notes Start: 04/23/21 07:41 Freq: Status: Active Protocol: Document 07/03/21 16:54 GB (Rec: 07/03/21 17:11 GB [id number]) Nutrition Notes Initial or Follow up Reassessment Current Diagnosis Respiratory Failure Other Pertinent Diagnosis oral thrush, COVID-19 pneu Current Diet consistent carbohydrate Labs/Tests 07/03: creatinine 0.3, K 3.2 Pertinent Medications Vit C, Vit D3, D5 (PRN), Prednisone, NaCl, Zn Sulfate Height 4 ft 11.84 in Weight 60.3 kg [place] Body Weight (kg) 45.09 BMI 26.1 Weight change and time frame 04/16/21: 74.843kg 05/17/21: 68.1kg 06/16/21: 60.3kg change of -14.54kg for -19.43% in 60 days. Per MD note: pt has been diuresed thorughout stay. Weight Status Overweight Subjective/Other Information MD notes 07/03: pt showing improvement, prednisone weaning down, possible weaning of O2. Last BM: 07/02 PO intake recorded at 50-100% Percent of energy/protein needs met: PO intake of meals meet 75% or greater of EEN Burn Absent Trauma Absent GI Symptoms None Food Allergy No Skin Integrity/Comment skin tear rt/lt buttocks Current % PO Good (75-100%) Minimum of two criteria No #3 Nutrition Diagnosis No nutrition diagnosis at this time Etiology respiratory failure As Evidenced by Signs and Symptoms recovering, good po, weight loss r/t diurese therapy #2 Nutrition Diagnosis Malnutrition Comments: Wt loss due to diurese for most of stay. PO intake is recorded at 75- 100% Etiology acute illness As Evidenced by Signs and Symptoms <50% EER in >5 days, >5% wt loss in 1 month Diagnosis Progress(for reassessment Resolved documentation) #1 Nutrition Diagnosis Inadequate oral intake Etiology ARF As Evidenced by Signs and Symptoms pt continues to meet 100%/93% of kcal/protein needs Diagnosis Progress(for reassessment Resolved documentation) Is patient on ventilator? No Is Patient Ambulatory and/or Out of Bed Yes REE-([facility]-ambulatory/OOB) [ 1491.022 [id number]] Kcal/Kg value to use for calculation 25 Approximate Energy Requirements Using 1508 kcal/Kg Calculation Used for Recommendations Kcal/kg Additional Notes Pro needs 1-1.2g/kg @ 60k -72g/day Fluid needs 1ml/kcal or per MD Nutrition Intervention Change Diet Order: continue Nutrition Support: n/a Add Supplement/Snack (indicate name/kcal n/a /protein ) Goal #1 PO intake of meals to be 75% or greater daily for LOS Goal #2 Weight to stabilize +/-3% current weight for LOS Follow-Up By: 08/07/21 Additional Comments f/u: po intake, weight
[2021-07-10] MEDS: INSULIN LISPRO 100 UNIT/ML SUB-Q SCH ×4 (08:21→21:38)
[2021-07-10] MEDS: ZINC SULFATE 220 MG CAP PO SCH ×2 (11:05→21:36)
[2021-07-10] MEDS: CHOLECALCIFEROL (VIT D3) 1000 UNIT (25 mcg) TAB PO SCH (11:05)
[2021-07-10] MEDS: predniSONE 10 MG TAB PO SCH (11:05)
[2021-07-10] MEDS: ASCORBIC ACID 500 MG TAB PO SCH (11:05)
[2021-07-10] MEDS: levoFLOXacin 750 MG TAB PO SCH (11:05)
[2021-07-10] MEDS: ALPRAZolam 1 MG TAB PO SCH ×2 (11:06→21:37)
[2021-07-10] MEDS: POTASSIUM CHLORIDE ER 20 MEQ TAB PO SCH ×2 (11:06→14:03)
[2021-07-10] MEDS: INSULIN GLARGINE 100 UNITS/ML SUB-Q SCH (11:18)
[2021-07-10] MEDS: ENOXAPARIN 40 MG/0.4 ML INJ SUB-Q SCH (21:35)
[2021-07-10] MEDS: ACETAMINOPHEN 325 MG TAB PO PRN (21:36)
[2021-07-11 06:19] LABS: BUN/Creatinine Ratio 65; Blood Urea Nitrogen 13 mg/dL (7-17); Calcium 9.5 mg/dL (8.4-10.2); Hemolysis Index 3
--- NOTE | 2021-07-11 07:22 | Progress Note ---
Assessment and Plan Assessment and plan: #Acute hypoxic respiratory failure -Currently on high flow nasal cannula (30 L, 80% FiO2) -Continue prednisone 10 mg daily, will decrease to 5mg starting 07/12 -Pulmonology following, assistance appreciated -Referral sent for LTACH (patient stay 86 days) -encourage prone positioning, 1 dose of lasix ordered today #Heart failure with preserved ejection fraction -TTE: LVEF 55-60% with diastolic dysfunction -will continue to monitor for signs of fluid overload #COVID-19 infection -Continue Covid vitamins #Type 2 diabetes -Continue Lantus 15 units daily and sliding scale insulin #Dysuria #Possible UTI -Improving -Urinalysis ordered 07/09, not collected -s/p Levaquin #Anxiety -Stable -Continue Xanax #DVT prophylaxis -Lovenox 40 daily #Deconditioning -Will benefit from SNF after prolonged hospital stay, Resolved issues #Sepsis secondary to COVID-19 #Iatrogenic diarrhea #Hypomagnesemia #Hyponatremia #Protein calorie malnutrition Disposition Plan: Continue medical management Total Time Spent with Patient (Minutes): 20 minutes History Interval history: No acute events overnight. Communicated with patient via phone translation. He on 30 L at 80% FiO2. Patient reports ear pain. No other complaints at this time. Hospitalist Physical - Physical exam Narrative exam: GENERAL: Well-developed well-nourished. Lying in bed in no acute distress. HEENT: High flow nasal cannula at 30L/80% CHEST/LUNGS: Coarse breath sounds bilaterally. HEART/CARDIOVASCULAR: RRR. No murmur, rubs or gallops appreciated. ABDOMEN: +BS. NT/ND. EXTREMITIES: No cyanosis, clubbing or edema. PSYCH: Cooperative. - Constitutional Vitals: Temp Pulse Resp BP Pulse Ox 98.2 F 103 H 18 140/76 93 07/11/21 06:17 07/11/21 06:17 07/11/21 06:17 07/11/21 06:17 07/11/21 06:17 General appearance: Present: no acute distress, well-nourished, obese Results - Labs CBC & Chem 7: 07/09/21 04:45 07/11/21 05:50 Labs: Laboratory Last Values WBC 9.5 K/mm3 (4.5-11.0) 07/09/21 04:45 RBC 3.88 M/mm3 (3.65-5.03) 07/09/21 04:45 Hgb 11.8 gm/dl (10.1-14.3) 07/09/21 04:45 Hct 36.8 % (30.3-42.9) 07/09/21 04:45 MCV 95 fl (79-97) 07/09/21 04:45 MCH 30 pg (28-32) 07/09/21 04:45 MCHC 32 % (30-34) 07/09/21 04:45 RDW 18.3 % (13.2-15.2) H 07/09/21 04:45 Plt Count 299 K/mm3 (140-440) 07/09/21 04:45 Lymph % (Auto) 15.6 % (13.4-35.0) 07/07/21 06:00 Slope % (Auto) 6.6 % (0.0-7.3) 07/07/21 06:00 Eos % (Auto) 1.9 % (0.0-4.3) 07/07/21 06:00 Baso % (Auto) 1.0 % (0.0-1.8) 07/07/21 06:00 Lymph # (Auto) 2.5 K/mm3 (1.2-5.4) 07/07/21 06:00 Slope # (Auto) 1.1 K/mm3 (0.0-0.8) H 07/07/21 06:00 Eos # (Auto) 0.3 K/mm3 (0.0-0.4) 07/07/21 06:00 Baso # (Auto) 0.2 K/mm3 (0.0-0.1) H 07/07/21 06:00 Add Manual Diff Complete 07/09/21 04:45 Total Counted 100 07/09/21 04:45 Seg Neutrophils % 74.9 % (40.0-70.0) H 07/07/21 06:00 Seg Neuts % (Manual) 82.0 % (40.0-70.0) H 07/09/21 04:45 Band Neutrophils % 1.0 % 05/12/21 04:05 Lymphocytes % (Manual) 13.0 % (13.4-35.0) L 07/09/21 04:45 Monocytes % (Manual) 3.0 % (0.0-7.3) 07/09/21 04:45 Eosinophils % (Manual) 2.0 % (0.0-4.3) 07/09/21 04:45 Nucleated RBC % Not Reportable 07/09/21 04:45 Seg Neutrophils # 12.1 K/mm3 (1.8-7.7) H 07/07/21 06:00 Seg Neutrophils # Man 7.8 K/mm3 (1.8-7.7) H 07/09/21 04:45 Band Neutrophils # 0.0 K/mm3 07/09/21 04:45 Lymphocytes # (Manual) 1.2 K/mm3 (1.2-5.4) 07/09/21 04:45 Abs React Lymphs (Man) 0.0 K/mm3 07/09/21 04:45 Monocytes # (Manual) 0.3 K/mm3 (0.0-0.8) 07/09/21 04:45 Eosinophils # (Manual) 0.2 K/mm3 (0.0-0.4) 07/09/21 04:45 Basophils # (Manual) 0.0 K/mm3 (0.0-0.1) 07/09/21 04:45 Metamyelocytes # 0.0 K/mm3 07/09/21 04:45 Myelocytes # 0.0 K/mm3 07/09/21 04:45 Promyelocytes # 0.0 K/mm3 07/09/21 04:45 Blast Cells # 0.0 K/mm3 07/09/21 04:45 WBC Morphology Not Reportable 07/09/21 04:45 Hypersegmented Neuts Not Reportable 07/09/21 04:45 Hyposegmented Neuts Not Reportable 07/09/21 04:45 Hypogranular Neuts Not Reportable 07/09/21 04:45 Smudge Cells Not Reportable 07/09/21 04:45 Toxic Granulation Not Reportable 07/09/21 04:45 Toxic Vacuolation Not Reportable 07/09/21 04:45 Dohle Bodies Not Reportable 07/09/21 04:45 Pelger-Huet Anomaly Not Reportable 07/09/21 04:45 Janelle Rods Not Reportable 07/09/21 04:45 Platelet Estimate Consistent w auto 07/09/21 04:45 Clumped Platelets Not Reportable 07/09/21 04:45 Plt Clumps, EDTA Not Reportable 07/09/21 04:45 Large Platelets Not Reportable 07/09/21 04:45 Giant Platelets Rare 07/09/21 04:45 Platelet Satelliting Not Reportable 07/09/21 04:45 Plt Morphology Comment Not Reportable 07/09/21 04:45 RBC Morphology Not Reportable 07/09/21 04:45 Dimorphic RBCs Not Reportable 07/09/21 04:45 Polychromasia Not Reportable 07/09/21 04:45 Hypochromasia Few 07/09/21 04:45 Poikilocytosis Not Reportable 07/09/21 04:45 Anisocytosis Not Reportable 07/09/21 04:45 Microcytosis Not Reportable 07/09/21 04:45 Macrocytosis Not Reportable 07/09/21 04:45 Spherocytes Not Reportable 07/09/21 04:45 Pappenheimer Bodies Not Reportable 07/09/21 04:45 Sickle Cells Not Reportable 07/09/21 04:45 Target Cells Not Reportable 07/09/21 04:45 Tear Drop Cells Not Reportable 07/09/21 04:45 Ovalocytes Not Reportable 07/09/21 04:45 Stomatocytes 1+ 07/09/21 04:45 Helmet Cells Not Reportable 07/09/21 04:45 [place] Bodies Not Reportable 07/09/21 04:45 Vale Rings Not Reportable 07/09/21 04:45 Lutts Cells Not Reportable 07/09/21 04:45 Bite Cells Not Reportable 07/09/21 04:45 Crenated Cell Not Reportable 07/09/21 04:45 Elliptocytes Not Reportable 07/09/21 04:45 Acanthocytes (Spur) Not Reportable 07/09/21 04:45 Rouleaux Not Reportable 07/09/21 04:45 Hemoglobin C Crystals Not Reportable 07/09/21 04:45 Schistocytes Not Reportable 07/09/21 04:45 Malaria parasites Not Reportable 07/09/21 04:45 Justin Bodies Not Reportable 07/09/21 04:45 Hem Pathologist Commnt No 07/09/21 04:45 D-Dimer 638.35 ng/mlDDU (0-234) H 07/09/21 04:45 ABG pH 7.403 pH Units (7.350-7.450) 05/14/21 02:23 POC ABG pCO2 45.4 mmHg (32.0-48.0) 05/03/21 04:49 ABG pCO2 50.2 mm Hg 05/14/21 02:23 POC ABG pO2 65.3 mmHg (83-108) L 05/03/21 04:49 ABG pO2 130.3 mm Hg (80.0-90.0) H 05/14/21 02:23 POC ABG HCO3 18.5 05/03/21 04:49 ABG HCO3 30.6 mmol/L (20.0-26.0) H 05/14/21 02:23 ABG O2 Saturation 98.5 % (95.0-99.0) 05/14/21 02:23 ABG O2 Content 17.9 (0.0-44) 05/14/21 02:23 POC ABG Base Excess -8.9 05/03/21 04:49 ABG Base Excess 4.9 mmol/L (-2.0-3.0) H 05/14/21 02:23 ABG Hemoglobin 13.0 gm/dl (12.0-16.0) 05/14/21 02:23 ABG Oxyhemoglobin 87.8 (94-98) L 05/03/21 04:49 ABG Carboxyhemoglobin 1.4 % (0.0-5.0) 05/14/21 02:23 ABG Methemoglobin 0.6 % (0.0-1.5) 05/14/21 02:23 ABG Sodium 133.0 mmol/L (136.0-145.0) L 05/03/21 04:49 ABG Potassium 3.9 mmol/L (3.40-4.50) 05/03/21 04:49 ABG Chloride 97.0 mmol/L (98-107) L 05/03/21 04:49 ABG Glucose 403 mg/dL (65-95) H 05/03/21 04:49 Oxyhemoglobin 96.5 % (95.0-99.0) 05/14/21 02:23 Carboxyhemoglobin 0.6 (0.5-1.5) 05/03/21 04:49 FiO2 90 % 05/14/21 02:23 FiO2 % 100.0 05/03/21 04:49 Sodium 139 mmol/L (137-145) 07/11/21 05:50 Potassium 4.0 mmol/L (3.6-5.0) D 07/11/21 05:50 Chloride 97.3 mmol/L (98-107) L 07/11/21 05:50 Carbon Dioxide 34 mmol/L (22-30) H 07/11/21 05:50 Anion Gap 12 mmol/L 07/11/21 05:50 BUN 13 mg/dL (7-17) 07/11/21 05:50 Creatinine 0.2 mg/dL (0.6-1.2) L 07/11/21 05:50 Estimated GFR > 60 ml/min 07/11/21 05:50 BUN/Creatinine Ratio 65 % 07/11/21 05:50 Glucose 109 mg/dL (65-100) H 07/11/21 05:50 POC Glucose 142 mg/dL (70-105) H 07/10/21 20:49 Hemoglobin A1c 8.5 % (4-6) H 04/18/21 07:36 Calcium 9.5 mg/dL (8.4-10.2) 07/11/21 05:50 Phosphorus 3.60 mg/dL (2.5-4.5) 07/09/21 04:45 Magnesium 1.90 mg/dL (1.7-2.3) 07/09/21 04:45 Ferritin 155.9 ng/mL (10.0-200.0) 07/09/21 04:45 Total Bilirubin 0.30 mg/dL (0.1-1.2) 06/28/21 05:43 AST 19 units/L (5-40) 06/28/21 05:43 ALT 63 units/L (7-56) H 06/28/21 05:43 Alkaline Phosphatase 61 units/L (35-129) 06/28/21 05:43 Lactate Dehydrogenase 475 units/L (91-180) H 06/05/21 05:26 C-Reactive Protein 4.30 mg/dL (0.00-1.30) H 07/09/21 04:45 NT-Pro-B Natriuret Pep 59.45 pg/mL (0-450) 07/07/21 13:40 Total Protein 6.5 g/dL (6.3-8.2) 06/28/21 05:43 Albumin 3.3 g/dL (3.9-5) L 06/28/21 05:43 Albumin/Globulin Ratio 1.0 % 06/28/21 05:43 Triglycerides < 9 mg/dL (2-149) 05/03/21 04:30 Procalcitonin < 0.05 ng/mL (<0.15) 05/23/21 09:50 Arterial Blood Glucose 403 mg/dL (65-95) H 05/03/21 04:49 Arterial Blood Ionized Calcium 4.9 mg/dL (4.6-5.3) 05/03/21 04:49 Coronavirus (PCR) Positive (Negative) A 06/05/21 08:30 Amos/IV: Voiding Method Bedpan Active Medications - Current Medications Current Medications: Generic Name Dose Route Start Last Admin Trade Name Freq PRN Reason Stop Dose Admin Acetaminophen 650 mg 07/02/21 17:48 07/10/21 21:36 Acetaminophen 325 Mg Tab PO 650 mg Q4H PRN Administration Pain, Mild (1-3) Albuterol 2.5 mg 04/16/21 13:39 04/21/21 20:39 Albuterol 2.5 Mg/3 Ml Nebu IH 2.5 mg Q4HRT PRN Administration Shortness Of Breath Alprazolam 2 mg 07/04/21 12:00 07/10/21 21:37 Alprazolam 1 Mg Tab PO 2 mg BID TUTU Administration Ascorbic Acid 500 mg 04/24/21 10:00 07/10/21 11:05 Ascorbic Acid 500 Mg Tab PO 500 mg QDAY TUTU Administration Cholecalciferol 1,000 unit 04/17/21 10:00 07/10/21 11:05 Cholecalciferol (Vit D3) 1000 Unit (25 Mcg) Tab PO 1,000 unit QDAY TUTU Administration Dextrose 50 ml 04/18/21 07:30 04/28/21 09:59 Dextrose 50% In Water (25gm) 50 Ml Syringe IV 50 ml Q30MIN PRN Administration Hypoglycemia Protocol Enoxaparin Sodium 40 mg 05/19/21 22:00 07/10/21 21:35 Enoxaparin 40 Mg/0.4 Ml Inj SUB-Q 40 mg QDAY@2200 TUTU Administration Protocol Insulin Glargine 15 units 06/25/21 10:00 07/10/21 11:18 Insulin Glargine 100 Units/Ml SUB-Q 15 units DAILY TUTU Administration Insulin Human Lispro 0 unit 05/18/21 12:00 07/10/21 21:38 Insulin Lispro 100 Unit/Ml SUB-Q Not Given ACHS [facility] Protocol Ondansetron HCl 4 mg 04/16/21 14:00 05/30/21 10:07 Ondansetron 4 Mg/2 Ml Inj IV 4 mg Q8H PRN Administration Nausea And Vomiting Prednisone 10 mg 07/03/21 10:00 07/10/21 11:05 Prednisone 10 Mg Tab PO 10 mg QDAY TUTU Administration Sodium Chloride 10 ml 04/16/21 22:00 07/10/21 21:37 Sodium Chloride 0.9% 10 Ml Flush Syringe IV 10 ml BID TUTU Administration Sodium Chloride 10 ml 04/16/21 13:39 05/22/21 15:21 Sodium Chloride 0.9% 10 Ml Flush Syringe IV 10 ml PRN PRN Administration LINE FLUSH Zinc Sulfate 220 mg 04/16/21 22:00 07/10/21 21:36 Zinc Sulfate 220 Mg Cap PO 220 mg BID TUTU Administration Zolpidem Tartrate 10 mg 05/26/21 08:56 07/04/21 22:00 Zolpidem 5 Mg Tab PO 10 mg QHS PRN Administration Insomnia Nutrition/Malnutrition Assess - Dietary Evaluation Nutrition/Malnutrition Findings: Nutrition Notes Start: 04/23/21 07:41 Freq: Status: Active Protocol: Document 07/03/21 16:54 GB (Rec: 07/03/21 17:11 GB [email or web address]) Nutrition Notes Initial or Follow up Reassessment Current Diagnosis Respiratory Failure Other Pertinent Diagnosis oral thrush, COVID-19 pneu Current Diet consistent carbohydrate Labs/Tests 07/03: creatinine 0.3, K 3.2 Pertinent Medications Vit C, Vit D3, D5 (PRN), Prednisone, NaCl, Zn Sulfate Height 4 ft 11.84 in Weight 60.3 kg [place] Body Weight (kg) 45.09 BMI 26.1 Weight change and time frame 04/16/21: 74.843kg 05/17/21: 68.1kg 06/16/21: 60.3kg change of -14.54kg for -19.43% in 60 days. Per MD note: pt has been diuresed thorughout stay. Weight Status Overweight Subjective/Other Information MD notes 07/03: pt showing improvement, prednisone weaning down, possible weaning of O2. Last BM: 07/02 PO intake recorded at 50-100% Percent of energy/protein needs met: PO intake of meals meet 75% or greater of EEN Burn Absent Trauma Absent GI Symptoms None Food Allergy No Skin Integrity/Comment skin tear rt/lt buttocks Current % PO Good (75-100%) Minimum of two criteria No #3 Nutrition Diagnosis No nutrition diagnosis at this time Etiology respiratory failure As Evidenced by Signs and Symptoms recovering, good po, weight loss r/t diurese therapy #2 Nutrition Diagnosis Malnutrition Comments: Wt loss due to diurese for most of stay. PO intake is recorded at 75- 100% Etiology acute illness As Evidenced by Signs and Symptoms <50% EER in >5 days, >5% wt loss in 1 month Diagnosis Progress(for reassessment Resolved documentation) #1 Nutrition Diagnosis Inadequate oral intake Etiology ARF As Evidenced by Signs and Symptoms pt continues to meet 100%/93% of kcal/protein needs Diagnosis Progress(for reassessment Resolved documentation) Is patient on ventilator? No Is Patient Ambulatory and/or Out of Bed Yes REE-([facility]-ambulatory/OOB) [ 1491.022 [id number]] Kcal/Kg value to use for calculation 25 Approximate Energy Requirements Using 1508 kcal/Kg Calculation Used for Recommendations Kcal/kg Additional Notes Pro needs 1-1.2g/kg @ 60k -72g/day Fluid needs 1ml/kcal or per MD Nutrition Intervention Change Diet Order: continue Nutrition Support: n/a Add Supplement/Snack (indicate name/kcal n/a /protein ) Goal #1 PO intake of meals to be 75% or greater daily for LOS Goal #2 Weight to stabilize +/-3% current weight for LOS Follow-Up By: 08/07/21 Additional Comments f/u: po intake, weight
[2021-07-11] MEDS ORDERED: FUROSEMIDE 40 MG/4 ML INJ IV SCH (09:00)
[2021-07-11] MEDS: INSULIN GLARGINE 100 UNITS/ML SUB-Q SCH (09:17)
[2021-07-11] MEDS: ASCORBIC ACID 500 MG TAB PO SCH (09:18)
[2021-07-11] MEDS: ZINC SULFATE 220 MG CAP PO SCH ×2 (09:18→21:15)
[2021-07-11] MEDS: predniSONE 10 MG TAB PO SCH (09:18)
[2021-07-11] MEDS: INSULIN LISPRO 100 UNIT/ML SUB-Q SCH ×4 (09:18→22:38)
[2021-07-11] MEDS: CHOLECALCIFEROL (VIT D3) 1000 UNIT (25 mcg) TAB PO SCH (09:18)
[2021-07-11] MEDS: ALPRAZolam 1 MG TAB PO SCH ×2 (09:19→21:22)
[2021-07-11] MEDS: ENOXAPARIN 40 MG/0.4 ML INJ SUB-Q SCH (21:15)
[2021-07-11] MEDS: ACETAMINOPHEN 325 MG TAB PO PRN (21:22)
--- NOTE | 2021-07-12 07:56 | Progress Note ---
Assessment and Plan Assessment and plan: #Acute hypoxic respiratory failure -Currently on high flow nasal cannula (30 L, 75% FiO2) -Continue prednisone 10 mg daily, will decrease to 5mg starting 07/12 -Pulmonology following, assistance appreciated -Referral sent for LTACH (patient stay 86 days) -encourage prone positioning -will assess need for lasix PRN, another dose given today #Heart failure with preserved ejection fraction -TTE: LVEF 55-60% with diastolic dysfunction -will continue to monitor for signs of fluid overload #COVID-19 infection -Continue Covid vitamins #Type 2 diabetes -Continue Lantus 15 units daily and sliding scale insulin #Dysuria #Possible UTI -Improving -Urinalysis ordered 07/09, not collected -s/p Levaquin #Anxiety -Stable -Continue Xanax #DVT prophylaxis -Lovenox 40 daily #Deconditioning -Will benefit from SNF after prolonged hospital stay, Resolved issues #Sepsis secondary to COVID-19 #Iatrogenic diarrhea #Hypomagnesemia #Hyponatremia #Protein calorie malnutrition Disposition Plan: Continue medical management Total Time Spent with Patient (Minutes): 20 minutes History Interval history: No acute events overnight. Currently on HFNC 30L/75% FIO2. No complaints at this time. Hospitalist Physical - Physical exam Narrative exam: GENERAL: Well-developed well-nourished. Lying in bed in no acute distress. HEENT: High flow nasal cannula at 30L/75% CHEST/LUNGS: Coarse breath sounds bilaterally. HEART/CARDIOVASCULAR: RRR. No murmur, rubs or gallops appreciated. ABDOMEN: +BS. NT/ND. EXTREMITIES: No cyanosis, clubbing or edema. PSYCH: Cooperative. - Constitutional Vitals: Temp Pulse Resp BP Pulse Ox 98.2 F 94 H 18 124/78 95 07/12/21 04:38 07/12/21 04:38 07/12/21 04:38 07/12/21 04:38 07/12/21 04:38 General appearance: Present: no acute distress, well-nourished, obese Results - Labs CBC & Chem 7: 07/09/21 04:45 07/11/21 05:50 Labs: Laboratory Last Values WBC 9.5 K/mm3 (4.5-11.0) 07/09/21 04:45 RBC 3.88 M/mm3 (3.65-5.03) 07/09/21 04:45 Hgb 11.8 gm/dl (10.1-14.3) 07/09/21 04:45 Hct 36.8 % (30.3-42.9) 07/09/21 04:45 MCV 95 fl (79-97) 07/09/21 04:45 MCH 30 pg (28-32) 07/09/21 04:45 MCHC 32 % (30-34) 07/09/21 04:45 RDW 18.3 % (13.2-15.2) H 07/09/21 04:45 Plt Count 299 K/mm3 (140-440) 07/09/21 04:45 Lymph % (Auto) 15.6 % (13.4-35.0) 07/07/21 06:00 [place] % (Auto) 6.6 % (0.0-7.3) 07/07/21 06:00 Eos % (Auto) 1.9 % (0.0-4.3) 07/07/21 06:00 Baso % (Auto) 1.0 % (0.0-1.8) 07/07/21 06:00 Lymph # (Auto) 2.5 K/mm3 (1.2-5.4) 07/07/21 06:00 [place] # (Auto) 1.1 K/mm3 (0.0-0.8) H 07/07/21 06:00 Eos # (Auto) 0.3 K/mm3 (0.0-0.4) 07/07/21 06:00 Baso # (Auto) 0.2 K/mm3 (0.0-0.1) H 07/07/21 06:00 Add Manual Diff Complete 07/09/21 04:45 Total Counted 100 07/09/21 04:45 Seg Neutrophils % 74.9 % (40.0-70.0) H 07/07/21 06:00 Seg Neuts % (Manual) 82.0 % (40.0-70.0) H 07/09/21 04:45 Band Neutrophils % 1.0 % 05/12/21 04:05 Lymphocytes % (Manual) 13.0 % (13.4-35.0) L 07/09/21 04:45 Monocytes % (Manual) 3.0 % (0.0-7.3) 07/09/21 04:45 Eosinophils % (Manual) 2.0 % (0.0-4.3) 07/09/21 04:45 Nucleated RBC % Not Reportable 07/09/21 04:45 Seg Neutrophils # 12.1 K/mm3 (1.8-7.7) H 07/07/21 06:00 Seg Neutrophils # Man 7.8 K/mm3 (1.8-7.7) H 07/09/21 04:45 Band Neutrophils # 0.0 K/mm3 07/09/21 04:45 Lymphocytes # (Manual) 1.2 K/mm3 (1.2-5.4) 07/09/21 04:45 Abs React Lymphs (Man) 0.0 K/mm3 07/09/21 04:45 Monocytes # (Manual) 0.3 K/mm3 (0.0-0.8) 07/09/21 04:45 Eosinophils # (Manual) 0.2 K/mm3 (0.0-0.4) 07/09/21 04:45 Basophils # (Manual) 0.0 K/mm3 (0.0-0.1) 07/09/21 04:45 Metamyelocytes # 0.0 K/mm3 07/09/21 04:45 Myelocytes # 0.0 K/mm3 07/09/21 04:45 Promyelocytes # 0.0 K/mm3 07/09/21 04:45 Blast Cells # 0.0 K/mm3 07/09/21 04:45 WBC Morphology Not Reportable 07/09/21 04:45 Hypersegmented Neuts Not Reportable 07/09/21 04:45 Hyposegmented Neuts Not Reportable 07/09/21 04:45 Hypogranular Neuts Not Reportable 07/09/21 04:45 Smudge Cells Not Reportable 07/09/21 04:45 Toxic Granulation Not Reportable 07/09/21 04:45 Toxic Vacuolation Not Reportable 07/09/21 04:45 Dohle Bodies Not Reportable 07/09/21 04:45 Pelger-Huet Anomaly Not Reportable 07/09/21 04:45 Janelle Rods Not Reportable 07/09/21 04:45 Platelet Estimate Consistent w auto 07/09/21 04:45 Clumped Platelets Not Reportable 07/09/21 04:45 Plt Clumps, EDTA Not Reportable 07/09/21 04:45 Large Platelets Not Reportable 07/09/21 04:45 Giant Platelets Rare 07/09/21 04:45 Platelet Satelliting Not Reportable 07/09/21 04:45 Plt Morphology Comment Not Reportable 07/09/21 04:45 RBC Morphology Not Reportable 07/09/21 04:45 Dimorphic RBCs Not Reportable 07/09/21 04:45 Polychromasia Not Reportable 07/09/21 04:45 Hypochromasia Few 07/09/21 04:45 Poikilocytosis Not Reportable 07/09/21 04:45 Anisocytosis Not Reportable 07/09/21 04:45 Microcytosis Not Reportable 07/09/21 04:45 Macrocytosis Not Reportable 07/09/21 04:45 Spherocytes Not Reportable 07/09/21 04:45 Pappenheimer Bodies Not Reportable 07/09/21 04:45 Sickle Cells Not Reportable 07/09/21 04:45 Target Cells Not Reportable 07/09/21 04:45 Tear Drop Cells Not Reportable 07/09/21 04:45 Ovalocytes Not Reportable 07/09/21 04:45 Stomatocytes 1+ 07/09/21 04:45 Helmet Cells Not Reportable 07/09/21 04:45 Ahuja-Rahway Bodies Not Reportable 07/09/21 04:45 [place] Rings Not Reportable 07/09/21 04:45 Crow Cells Not Reportable 07/09/21 04:45 Bite Cells Not Reportable 07/09/21 04:45 Crenated Cell Not Reportable 07/09/21 04:45 Elliptocytes Not Reportable 07/09/21 04:45 Acanthocytes (Spur) Not Reportable 07/09/21 04:45 Rouleaux Not Reportable 07/09/21 04:45 Hemoglobin C Crystals Not Reportable 07/09/21 04:45 Schistocytes Not Reportable 07/09/21 04:45 Malaria parasites Not Reportable 07/09/21 04:45 Justin Bodies Not Reportable 07/09/21 04:45 Hem Pathologist Commnt No 07/09/21 04:45 D-Dimer 638.35 ng/mlDDU (0-234) H 07/09/21 04:45 ABG pH 7.403 pH Units (7.350-7.450) 05/14/21 02:23 POC ABG pCO2 45.4 mmHg (32.0-48.0) 05/03/21 04:49 ABG pCO2 50.2 mm Hg 05/14/21 02:23 POC ABG pO2 65.3 mmHg (83-108) L 05/03/21 04:49 ABG pO2 130.3 mm Hg (80.0-90.0) H 05/14/21 02:23 POC ABG HCO3 18.5 05/03/21 04:49 ABG HCO3 30.6 mmol/L (20.0-26.0) H 05/14/21 02:23 ABG O2 Saturation 98.5 % (95.0-99.0) 05/14/21 02:23 ABG O2 Content 17.9 (0.0-44) 05/14/21 02:23 POC ABG Base Excess -8.9 05/03/21 04:49 ABG Base Excess 4.9 mmol/L (-2.0-3.0) H 05/14/21 02:23 ABG Hemoglobin 13.0 gm/dl (12.0-16.0) 05/14/21 02:23 ABG Oxyhemoglobin 87.8 (94-98) L 05/03/21 04:49 ABG Carboxyhemoglobin 1.4 % (0.0-5.0) 05/14/21 02:23 ABG Methemoglobin 0.6 % (0.0-1.5) 05/14/21 02:23 ABG Sodium 133.0 mmol/L (136.0-145.0) L 05/03/21 04:49 ABG Potassium 3.9 mmol/L (3.40-4.50) 05/03/21 04:49 ABG Chloride 97.0 mmol/L (98-107) L 05/03/21 04:49 ABG Glucose 403 mg/dL (65-95) H 05/03/21 04:49 Oxyhemoglobin 96.5 % (95.0-99.0) 05/14/21 02:23 Carboxyhemoglobin 0.6 (0.5-1.5) 05/03/21 04:49 FiO2 90 % 05/14/21 02:23 FiO2 % 100.0 05/03/21 04:49 Sodium 139 mmol/L (137-145) 07/11/21 05:50 Potassium 4.0 mmol/L (3.6-5.0) D 07/11/21 05:50 Chloride 97.3 mmol/L (98-107) L 07/11/21 05:50 Carbon Dioxide 34 mmol/L (22-30) H 07/11/21 05:50 Anion Gap 12 mmol/L 07/11/21 05:50 BUN 13 mg/dL (7-17) 07/11/21 05:50 Creatinine 0.2 mg/dL (0.6-1.2) L 07/11/21 05:50 Estimated GFR > 60 ml/min 07/11/21 05:50 BUN/Creatinine Ratio 65 % 07/11/21 05:50 Glucose 109 mg/dL (65-100) H 07/11/21 05:50 POC Glucose 114 mg/dL (70-105) H 07/12/21 07:36 Hemoglobin A1c 8.5 % (4-6) H 04/18/21 07:36 Calcium 9.5 mg/dL (8.4-10.2) 07/11/21 05:50 Phosphorus 3.60 mg/dL (2.5-4.5) 07/09/21 04:45 Magnesium 1.90 mg/dL (1.7-2.3) 07/09/21 04:45 Ferritin 155.9 ng/mL (10.0-200.0) 07/09/21 04:45 Total Bilirubin 0.30 mg/dL (0.1-1.2) 06/28/21 05:43 AST 19 units/L (5-40) 06/28/21 05:43 ALT 63 units/L (7-56) H 06/28/21 05:43 Alkaline Phosphatase 61 units/L (35-129) 06/28/21 05:43 Lactate Dehydrogenase 475 units/L (91-180) H 06/05/21 05:26 C-Reactive Protein 4.30 mg/dL (0.00-1.30) H 07/09/21 04:45 NT-Pro-B Natriuret Pep 59.45 pg/mL (0-450) 07/07/21 13:40 Total Protein 6.5 g/dL (6.3-8.2) 06/28/21 05:43 Albumin 3.3 g/dL (3.9-5) L 06/28/21 05:43 Albumin/Globulin Ratio 1.0 % 06/28/21 05:43 Triglycerides < 9 mg/dL (2-149) 05/03/21 04:30 Procalcitonin < 0.05 ng/mL (<0.15) 05/23/21 09:50 Arterial Blood Glucose 403 mg/dL (65-95) H 05/03/21 04:49 Arterial Blood Ionized Calcium 4.9 mg/dL (4.6-5.3) 05/03/21 04:49 Coronavirus (PCR) Positive (Negative) A 06/05/21 08:30 Amos/IV: Voiding Method External Female Catheter Active Medications - Current Medications Current Medications: Generic Name Dose Route Start Last Admin Trade Name Freq PRN Reason Stop Dose Admin Acetaminophen 650 mg 07/02/21 17:48 07/11/21 21:22 Acetaminophen 325 Mg Tab PO 650 mg Q4H PRN Administration Pain, Mild (1-3) Albuterol 2.5 mg 04/16/21 13:39 04/21/21 20:39 Albuterol 2.5 Mg/3 Ml Nebu IH 2.5 mg Q4HRT PRN Administration Shortness Of Breath Alprazolam 2 mg 07/04/21 12:00 07/11/21 21:22 Alprazolam 1 Mg Tab PO 2 mg BID TUTU Administration Ascorbic Acid 500 mg 04/24/21 10:00 07/11/21 09:18 Ascorbic Acid 500 Mg Tab PO 500 mg QDAY TUTU Administration Cholecalciferol 1,000 unit 04/17/21 10:00 07/11/21 09:18 Cholecalciferol (Vit D3) 1000 Unit (25 Mcg) Tab PO 1,000 unit QDAY TUTU Administration Dextrose 50 ml 04/18/21 07:30 04/28/21 09:59 Dextrose 50% In Water (25gm) 50 Ml Syringe IV 50 ml Q30MIN PRN Administration Hypoglycemia Protocol Enoxaparin Sodium 40 mg 05/19/21 22:00 07/11/21 21:15 Enoxaparin 40 Mg/0.4 Ml Inj SUB-Q 40 mg QDAY@2200 TUTU Administration Protocol Ibuprofen 600 mg 07/11/21 11:00 Ibuprofen 600 Mg Tab PO Q6H PRN Ear Pain Insulin Glargine 15 units 06/25/21 10:00 07/11/21 09:17 Insulin Glargine 100 Units/Ml SUB-Q 15 units DAILY TUTU Administration Insulin Human Lispro 0 unit 05/18/21 12:00 07/11/21 22:38 Insulin Lispro 100 Unit/Ml SUB-Q Not Given ACHS [facility] Protocol Ondansetron HCl 4 mg 04/16/21 14:00 05/30/21 10:07 Ondansetron 4 Mg/2 Ml Inj IV 4 mg Q8H PRN Administration Nausea And Vomiting Prednisone 10 mg 07/03/21 10:00 07/11/21 09:18 Prednisone 10 Mg Tab PO 10 mg QDAY TUTU Administration Sodium Chloride 10 ml 04/16/21 22:00 07/11/21 21:15 Sodium Chloride 0.9% 10 Ml Flush Syringe IV 10 ml BID TUTU Administration Sodium Chloride 10 ml 04/16/21 13:39 05/22/21 15:21 Sodium Chloride 0.9% 10 Ml Flush Syringe IV 10 ml PRN PRN Administration LINE FLUSH Zinc Sulfate 220 mg 04/16/21 22:00 07/11/21 21:15 Zinc Sulfate 220 Mg Cap PO 220 mg BID TUTU Administration Zolpidem Tartrate 10 mg 05/26/21 08:56 07/04/21 22:00 Zolpidem 5 Mg Tab PO 10 mg QHS PRN Administration Insomnia Nutrition/Malnutrition Assess - Dietary Evaluation Nutrition/Malnutrition Findings: Nutrition Notes Start: 04/23/21 07:41 Freq: Status: Active Protocol: Document 07/03/21 16:54 GB (Rec: 07/03/21 17:11 GB [email or web address]) Nutrition Notes Initial or Follow up Reassessment Current Diagnosis Respiratory Failure Other Pertinent Diagnosis oral thrush, COVID-19 pneu Current Diet consistent carbohydrate Labs/Tests 07/03: creatinine 0.3, K 3.2 Pertinent Medications Vit C, Vit D3, D5 (PRN), Prednisone, NaCl, Zn Sulfate Height 4 ft 11.84 in Weight 60.3 kg [place] Body Weight (kg) 45.09 BMI 26.1 Weight change and time frame 04/16/21: 74.843kg 05/17/21: 68.1kg 06/16/21: 60.3kg change of -14.54kg for -19.43% in 60 days. Per MD note: pt has been diuresed thorughout stay. Weight Status Overweight Subjective/Other Information MD notes 07/03: pt showing improvement, prednisone weaning down, possible weaning of O2. Last BM: 07/02 PO intake recorded at 50-100% Percent of energy/protein needs met: PO intake of meals meet 75% or greater of EEN Burn Absent Trauma Absent GI Symptoms None Food Allergy No Skin Integrity/Comment skin tear rt/lt buttocks Current % PO Good (75-100%) Minimum of two criteria No #3 Nutrition Diagnosis No nutrition diagnosis at this time Etiology respiratory failure As Evidenced by Signs and Symptoms recovering, good po, weight loss r/t diurese therapy #2 Nutrition Diagnosis Malnutrition Comments: Wt loss due to diurese for most of stay. PO intake is recorded at 75- 100% Etiology acute illness As Evidenced by Signs and Symptoms <50% EER in >5 days, >5% wt loss in 1 month Diagnosis Progress(for reassessment Resolved documentation) #1 Nutrition Diagnosis Inadequate oral intake Etiology ARF As Evidenced by Signs and Symptoms pt continues to meet 100%/93% of kcal/protein needs Diagnosis Progress(for reassessment Resolved documentation) Is patient on ventilator? No Is Patient Ambulatory and/or Out of Bed Yes REE-([facility]-ambulatory/OOB) [ 1491.022 [id number]] Kcal/Kg value to use for calculation 25 Approximate Energy Requirements Using 1508 kcal/Kg Calculation Used for Recommendations Kcal/kg Additional Notes Pro needs 1-1.2g/kg @ 60k -72g/day Fluid needs 1ml/kcal or per MD Nutrition Intervention Change Diet Order: continue Nutrition Support: n/a Add Supplement/Snack (indicate name/kcal n/a /protein ) Goal #1 PO intake of meals to be 75% or greater daily for LOS Goal #2 Weight to stabilize +/-3% current weight for LOS Follow-Up By: 08/07/21 Additional Comments f/u: po intake, weight
--- NOTE | 2021-07-12 08:39 | Progress Note ---
Assessment and Plan 50 y/o female with acute respiratory failure secondary to COVID19 pneumonia. 07/12/21: Gave lasix 40mg IV again this am. Per charting yesterday was the first net negative day. Suggest PRN diuresis over the weekend as well. My partner is rounding but will likely see as needed. Continue to wean for sats >88% 07/11/21: Lasix 40mg IV this am. Attempt to prone if able. Attempt to achieve daily net negative state. Wean for sats >88%. Guarded prognosis. Will change prednisone to 5mg daily starting tomorrow. 07/09/21: Echo shows diastolic dysfunction. Will given an additional 40 of IV lasix today. Monitor daily and wean aggressively for sats >88% 07/08/21: Worsening CXR, Gave lasix yesterday and will give again today. Suggest checking echo, ekg. Prognosis is poor now with this change. We have seen COVID cause CAD with OK. 07/05/21: Will monitor over the weekend. Worst case scenario, may need to go back up to Prednisone 20 at least. Prone if able. Unsure why all of sudden oxygen requirement increasing. Will repeat CXR. 07/03/21: Down to 10 of prednisone. Will keep through the weekend and then drop to 5 on Thursday. PT/OT assessment if not done. Suggest maybe weaning flow now given FiO2 down to 50%. Prognosis is still guarded. 07/01/21: Will drop steroids to 10mg daily starting tomorrow. Wean for sats >88%. Prone. PT/OT should be seeing now that oxygen requirement is down more. 06/28/21: Continue to wean as tolerated. Will drop steroids down even further next week. Will see PRN over the weekend. 06/26/21: Will drop steroids down to 20 starting tomorrow. Prone. Continue to wean as tolerated. 06/24/21: Continue Pred, will drop to 20 daily tomorrow. Prone if able. Hopeful they can wean FiO2 more. May need to consider increasing flow for a while. 06/21/21: Continue pred at 40, will decrease likely Thursday/Thursday to 20 daily. Prone if able. Continue to wean as tolerated. Prognosis still remains guarded. 06/20/21: Will drop steroids down to 40 today. Proning. Continue to wean FiO2. 06/18/21: Wean Fio2 for sats >88%. Please encourage proning. Drop steroids down to 40 on . 06/14/21: Continue oral steroid therapy. Will do further weaning next week. Wean for sats >88% and prone as tolerated. Will see as needed over the weekend. 06/13/21: Will change to prednisone 60 daily starting tomorrow. Prone if able and wean for sats >88% 06/11/21: no new recs, will change to oral steroids tomorrow, continue to prone if able and wean for sats >88% 06/10/21: Will change to oral steroids on Thursday to begin prolonged taper 06/06/21: Continue to wean as tolerated, will drop steroids on tomorrow. 06/04/21: Clinically no change. Will drop steroids down the end of this week. 05/31/21: Clinically no change. Not eligible for LTACH. Encourage Proning. Will drop steroids down to 40 q8 05/29/21: No acute changes clinically. Still on HFNC but not really able to wean. Continue to encourage proning. Will drop steroids further on Thursday. 05/27/21: No improvement over the weekend but also no worsening. No other strategies to offer. Please continue to encourage patient to prone. I dropped steroids on yesterday. Will wean more later in the week. 05/24/21: No new recs again for today. Will see as needed over the weekend but follow chart peripherally for changes. 05/22/21: No new recs for today. Prognosis remains guarded. 05/21/21: Wean as tolerated. Prone if able. Guarded prognosis 05/20/21: COntinue current level of care. 05/17/21: Prone if possible. Wean FiO2 for sats >88%. Continue scheduled ativan. Prognosis is very very guarded. Unfunded so not a candidate for LTACH 05/16/21: Prone if willing. Wean FIO2 if patient will allow. Anxiety control. Prognosis still remains very guarded. 05/15/21: Not sure if MAR is accurate but may have only gotten one dose of scheduled anixolytic therapy. Continue proning as tolerated, and wean FiO2 and flow for sats >88%. Prognosi remains very very guarded to poor. 05/14/21: Will discontinue the buspar and make the ativan scheduled but will do q6 as oppose to q4 and attempt to leave parameters for nursing when not to give. If anxiety could be controlled, feel that patient could be weaned further. She has no funding so she is not a candidate for LTACH. Prone if possible. Guarded prognosis. This is her day. 05/13/21: Ordered buspar 10 BID to start with to help with anxiety. Please continue to wean FiO2 as tolerated. Will remind nurse that there is PRN ativan available. Continue higher doses of steroids. Prone if able. 05/12/21: Patient may need something longer acting for anxiety. Per chart has not gotten any ativan in days. Would be ok with either buspar or low dose klonopin bid. COntinue higher doses of steroids as patient seems to be r esponding. Prone if possible. 05/11/21: Continue high doses of steroids and continue to wean for sats >88%. Please encourage proning. 05/10/21: Will continue this dose of steroid at least through the weekend and assess for improvement. will speak with RT about aggressive weaning. Full dose anticoagulation continues. Very very guarded to poor prognosis. 05/09/21: Going to consider increasing steroids to 125q8, maybe as early as tomorrow. continue full dose anticoagulation. 05/08/21: Continue anticoagulation and steroids. Prone if possible. Anxiety control. No objection to CTA if this can happen. Very very guarded prognosis. 05/07/21: Spoke with IMS, not opposed to full dose anticoagulation. If patient goes back on NRB HFNC combo may need to consider restarting PPN again. En courage proning. Guarded prognosis. 05/06/21: Continue to wean FiO2 and flow for sats >88%. Tolerating diet now so will stop PPN. Continue anxiety control. Continue IV steroids. Would not object to transfer to COVID floor if bed available. Not sure why she was titrated back up to 100% from 85 as all sats documented in the RT's notes were acceptable. Same for under vital signs as well. 05/03/21: Set back last night from yesterday. Continue bipap therapy for now and attempt HFNC maybe later this afternoon. Continue to use PRN ativan but may need to schedule as she likely took off mask from anxiety. Continue IV steroids. Hold on transfer to COVID Floor. 05/02/21: Continue to wean FiO2 as tolerated for sats >88%. Will continue bipap at night. Patient has no funding so not a candidate for LTACH. Given that she has been stable and not requiring the combo of HFNC and NRB, will consider moving to COVID floor. 05/01/21: Continue to wean FiO2 for sats >88%. A sat of 90 is more than acceptable and oxygen should not be increased for this unless patient desats and remains at a sat lower than 88. Bipap at night to give some form of relief and HFNC during the day. Currently on just this alone which is improvement. Ok with daily diuresis but must monitor renal function and BP closely. She was over diuresed last week and we ended up giving fluid back. Prognosis remains guarded. 04/30/21: Will start CLinimix today for nutritional support, without electrolytes. Check labs in am. Prone if able. Continue precedx for anxiety. Very very guarded prognosis. Attempting our best to not intubate. 04/29/21: Continue precedex. Continue IV solumedrol. Prone if able. Guarded prognosis. 04/28/21: Continue Precedex. Picc team attempting to place line now. Stable on Bipap. Ordered steroids IV solumedrol to start today. Prognosis remains guarded, still at very high risk for intubation. 04/27/21: Hypotension improving/improved. Hold on any further lasix dosing. Continue precedex to help with anxeity. later today please attempt HFNC with NRB if needed. Attempt to feed if possible. Steroids end today, please order solumedrol 40q8 to start tomorrow (04/28/21). guarded prognosis. 04/26/21: Hypotension today, most likely from precedex use and diuresis that I did the last several days. Will bolus again today. Consider midodrine if BP does not respond. 04/25/21: Lasix again today. Keep PRN ativan for now. Hold on precedex for now. Guarded prognosis. Labs ordered for tomorrow. 04/24/21: Lasix today. Will also start patient on low dose PRN ativan. If this does not help will then try precedex. Guarded prognosis. 04/23/21: Prone as tolerated. No lasix today. Continue decadron. Guarded prognosis. High risk for intubation and high mortality with intubation. 04/19/21: Prone as tolerated during the day and sleep prone at night. Continue IV remdesivir and steroids. Did get actemra. Guarded prognosis. 1. Daily net negative state 2. Prone if possible 3. IV remdesivir. 4. Should be a candidate for Actemra 5. IV steroids 6. Guarded Prognosis Subjective Date of service: 07/12/21 Principal diagnosis: Covid-19 Interval history: Oxygenation improving. Objective Vital Signs - 12hr 07/11/21 07/11/21 07/11/21 21:22 21:54 22:00 Temperature 97.5 F L Pulse Rate 100 H Respiratory 19 18 Rate Respiratory 17 Rate [Lower Abdomen] Blood Pressure 113/68 O2 Sat by Pulse 89 94 Oximetry 07/12/21 07/12/21 02:00 04:38 Temperature 98.2 F Pulse Rate 94 H Respiratory 18 Rate Respiratory Rate [Lower Abdomen] Blood Pressure 124/78 O2 Sat by Pulse 94 95 Oximetry Constitutional: no acute distress, alert Eyes: non-icteric ENT: oropharynx moist Neck: supple Effort: normal Ascultation: Bilateral: diminished breath sounds Cardiovascular: regular rate and rhythm Gastrointestinal: normoactive bowel sounds, soft, non-tender, non-distended Integumentary: normal Extremities: no cyanosis, no edema, pink and warm Neurologic: normal mental status, non-focal exam, pupils equal and round, CN II- XII normal Psychiatric: mood appropriate, affect normal CBC and BMP: 07/09/21 04:45 07/11/21 05:50 ABG, PT/INR, D-dimer: ABG ABG pH 7.403 pH Units (7.350-7.450) 05/14/21 02:23 POC ABG pCO2 45.4 mmHg (32.0-48.0) 05/03/21 04:49 ABG pCO2 50.2 mm Hg 05/14/21 02:23 POC ABG pO2 65.3 mmHg (83-108) L 05/03/21 04:49 ABG pO2 130.3 mm Hg (80.0-90.0) H 05/14/21 02:23 POC ABG HCO3 18.5 05/03/21 04:49 ABG O2 Saturation 98.5 % (95.0-99.0) 05/14/21 02:23 PT/INR, D-dimer D-Dimer 638.35 ng/mlDDU (0-234) H 07/09/21 04:45 Abnormal lab findings: Abnormal Labs 04/16/21 04/16/21 04/16/21 11:42 11:42 11:42 WBC MCH MCHC RDW 16.1 H Lymph % (Auto) 7.8 L Lymph # (Auto) 0.8 L [place] # (Auto) Baso # (Auto) Seg Neutrophils % 87.7 H Seg Neuts % (Manual) Lymphocytes % (Manual) Seg Neutrophils # 8.5 H Seg Neutrophils # Man Lymphocytes # (Manual) D-Dimer 338.70 H ABG pH POC ABG pO2 ABG pO2 ABG HCO3 ABG O2 Saturation ABG Base Excess ABG Oxyhemoglobin ABG Sodium ABG Chloride ABG Glucose Oxyhemoglobin Carboxyhemoglobin Sodium Potassium Chloride Carbon Dioxide BUN Creatinine Glucose 194 H POC Glucose Hemoglobin A1c Ferritin AST ALT Alkaline Phosphatase Lactate Dehydrogenase C-Reactive Protein Total Protein 8.4 H Albumin 3.8 L Arterial Blood Glucose Coronavirus (PCR) 04/16/21 04/16/21 04/17/21 11:42 11:42 03:50 WBC MCH MCHC RDW 16.0 H Lymph % (Auto) 7.7 L Lymph # (Auto) 0.6 L [place] # (Auto) Baso # (Auto) Seg Neutrophils % 89.8 H Seg Neuts % (Manual) Lymphocytes % (Manual) Seg Neutrophils # Seg Neutrophils # Man Lymphocytes # (Manual) D-Dimer ABG pH POC ABG pO2 ABG pO2 ABG HCO3 ABG O2 Saturation ABG Base Excess ABG Oxyhemoglobin ABG Sodium ABG Chloride ABG Glucose Oxyhemoglobin Carboxyhemoglobin Sodium Potassium Chloride Carbon Dioxide BUN Creatinine Glucose 195 H POC Glucose Hemoglobin A1c Ferritin 254.3 H AST ALT Alkaline Phosphatase Lactate Dehydrogenase 359 H C-Reactive Protein 15.20 H Total Protein Albumin Arterial Blood Glucose Coronavirus (PCR) 04/17/21 04/17/21 04/17/21 03:50 08:26 08:26 WBC MCH MCHC RDW Lymph % (Auto) Lymph # (Auto) [place] # (Auto) Baso # (Auto) Seg Neutrophils % Seg Neuts % (Manual) Lymphocytes % (Manual) Seg Neutrophils # Seg Neutrophils # Man Lymphocytes # (Manual) D-Dimer 262.48 H ABG pH POC ABG pO2 ABG pO2 ABG HCO3 ABG O2 Saturation ABG Base Excess ABG Oxyhemoglobin ABG Sodium ABG Chloride ABG Glucose Oxyhemoglobin Carboxyhemoglobin Sodium Potassium Chloride Carbon Dioxide BUN 20 H Creatinine 0.5 L Glucose 249 H 225 H POC Glucose Hemoglobin A1c Ferritin AST ALT Alkaline Phosphatase Lactate Dehydrogenase 338 H C-Reactive Protein 17.20 H Total Protein Albumin 3.2 L Arterial Blood Glucose Coronavirus (PCR) 04/17/21 04/17/21 04/17/21 08:26 15:04 Unknown WBC MCH MCHC RDW Lymph % (Auto) Lymph # (Auto) [place] # (Auto) Baso # (Auto) Seg Neutrophils % Seg Neuts % (Manual) Lymphocytes % (Manual) Seg Neutrophils # Seg Neutrophils # Man Lymphocytes # (Manual) D-Dimer ABG pH POC ABG pO2 ABG pO2 ABG HCO3 ABG O2 Saturation ABG Base Excess ABG Oxyhemoglobin ABG Sodium ABG Chloride ABG Glucose Oxyhemoglobin Carboxyhemoglobin Sodium Potassium Chloride Carbon Dioxide BUN 20 H Creatinine 0.5 L Glucose 246 H POC Glucose Hemoglobin A1c Ferritin 392.0 H AST ALT Alkaline Phosphatase Lactate Dehydrogenase C-Reactive Protein Total Protein 8.3 H Albumin 3.1 L Arterial Blood Glucose Coronavirus (PCR) Positive A 04/18/21 04/18/21 04/18/21 05:06 05:06 07:36 WBC 11.6 H MCH MCHC RDW 16.1 H Lymph % (Auto) Lymph # (Auto) [place] # (Auto) Baso # (Auto) Seg Neutrophils % Seg Neuts % (Manual) Lymphocytes % (Manual) Seg Neutrophils # Seg Neutrophils # Man Lymphocytes # (Manual) D-Dimer ABG pH POC ABG pO2 ABG pO2 ABG HCO3 ABG O2 Saturation ABG Base Excess ABG Oxyhemoglobin ABG Sodium ABG Chloride ABG Glucose Oxyhemoglobin Carboxyhemoglobin Sodium Potassium 5.2 H Chloride Carbon Dioxide BUN 22 H Creatinine 0.5 L Glucose 315 H POC Glucose Hemoglobin A1c 8.5 H Ferritin AST ALT Alkaline Phosphatase Lactate Dehydrogenase C-Reactive Protein Total Protein Albumin 3.3 L Arterial Blood Glucose Coronavirus (PCR) 04/18/21 04/18/21 04/18/21 11:59 16:43 23:24 WBC MCH MCHC RDW Lymph % (Auto) Lymph # (Auto) [place] # (Auto) Baso # (Auto) Seg Neutrophils % Seg Neuts % (Manual) Lymphocytes % (Manual) Seg Neutrophils # Seg Neutrophils # Man Lymphocytes # (Manual) D-Dimer ABG pH POC ABG pO2 ABG pO2 ABG HCO3 ABG O2 Saturation ABG Base Excess ABG Oxyhemoglobin ABG Sodium ABG Chloride ABG Glucose Oxyhemoglobin Carboxyhemoglobin Sodium Potassium Chloride Carbon Dioxide BUN Creatinine Glucose POC Glucose 284 H 273 H 290 H Hemoglobin A1c Ferritin AST ALT Alkaline Phosphatase Lactate Dehydrogenase C-Reactive Protein Total Protein Albumin Arterial Blood Glucose Coronavirus (PCR) 04/19/21 04/19/21 04/19/21 04:19 04:19 08:10 WBC MCH MCHC RDW 15.7 H Lymph % (Auto) Lymph # (Auto) [place] # (Auto) Baso # (Auto) Seg Neutrophils % Seg Neuts % (Manual) Lymphocytes % (Manual) Seg Neutrophils # Seg Neutrophils # Man Lymphocytes # (Manual) D-Dimer ABG pH POC ABG pO2 ABG pO2 ABG HCO3 ABG O2 Saturation ABG Base Excess ABG Oxyhemoglobin ABG Sodium ABG Chloride ABG Glucose Oxyhemoglobin Carboxyhemoglobin Sodium Potassium Chloride Carbon Dioxide BUN 27 H Creatinine 0.4 L Glucose 184 H POC Glucose 194 H Hemoglobin A1c Ferritin AST ALT Alkaline Phosphatase Lactate Dehydrogenase C-Reactive Protein Total Protein Albumin 3.1 L Arterial Blood Glucose Coronavirus (PCR) 04/19/21 04/19/21 04/19/21 11:38 16:25 22:04 WBC MCH MCHC RDW Lymph % (Auto) Lymph # (Auto) [place] # (Auto) Baso # (Auto) Seg Neutrophils % Seg Neuts % (Manual) Lymphocytes % (Manual) Seg Neutrophils # Seg Neutrophils # Man Lymphocytes # (Manual) D-Dimer ABG pH POC ABG pO2 ABG pO2 ABG HCO3 ABG O2 Saturation ABG Base Excess ABG Oxyhemoglobin ABG Sodium ABG Chloride ABG Glucose Oxyhemoglobin Carboxyhemoglobin Sodium Potassium Chloride Carbon Dioxide BUN Creatinine Glucose POC Glucose 224 H 297 H 251 H Hemoglobin A1c Ferritin AST ALT Alkaline Phosphatase Lactate Dehydrogenase C-Reactive Protein Total Protein Albumin Arterial Blood Glucose Coronavirus (PCR) 04/20/21 04/20/21 04/20/21 05:28 08:43 16:21 WBC MCH MCHC RDW Lymph % (Auto) Lymph # (Auto) [place] # (Auto) Baso # (Auto) Seg Neutrophils % Seg Neuts % (Manual) Lymphocytes % (Manual) Seg Neutrophils # Seg Neutrophils # Man Lymphocytes # (Manual) D-Dimer ABG pH POC ABG pO2 ABG pO2 ABG HCO3 ABG O2 Saturation ABG Base Excess ABG Oxyhemoglobin ABG Sodium ABG Chloride ABG Glucose Oxyhemoglobin Carboxyhemoglobin Sodium Potassium Chloride Carbon Dioxide BUN 27 H Creatinine Glucose 192 H POC Glucose 173 H 253 H Hemoglobin A1c Ferritin AST ALT Alkaline Phosphatase Lactate Dehydrogenase C-Reactive Protein Total Protein Albumin 3.0 L Arterial Blood Glucose Coronavirus (PCR) 04/21/21 04/21/21 04/21/21 07:58 12:05 16:08 WBC MCH MCHC RDW Lymph % (Auto) Lymph # (Auto) [place] # (Auto) Baso # (Auto) Seg Neutrophils % Seg Neuts % (Manual) Lymphocytes % (Manual) Seg Neutrophils # Seg Neutrophils # Man Lymphocytes # (Manual) D-Dimer ABG pH POC ABG pO2 ABG pO2 ABG HCO3 ABG O2 Saturation ABG Base Excess ABG Oxyhemoglobin ABG Sodium ABG Chloride ABG Glucose Oxyhemoglobin Carboxyhemoglobin Sodium Potassium Chloride Carbon Dioxide BUN Creatinine Glucose POC Glucose 140 H 252 H 214 H Hemoglobin A1c Ferritin AST ALT Alkaline Phosphatase Lactate Dehydrogenase C-Reactive Protein Total Protein Albumin Arterial Blood Glucose Coronavirus (PCR) 04/21/21 04/22/21 04/22/21 21:42 08:37 12:01 WBC MCH MCHC RDW Lymph % (Auto) Lymph # (Auto) [place] # (Auto) Baso # (Auto) Seg Neutrophils % Seg Neuts % (Manual) Lymphocytes % (Manual) Seg Neutrophils # Seg Neutrophils # Man Lymphocytes # (Manual) D-Dimer ABG pH 7.457 H POC ABG pO2 49.4 L ABG pO2 ABG HCO3 ABG O2 Saturation ABG Base Excess ABG Oxyhemoglobin 85.6 L ABG Sodium ABG Chloride ABG Glucose 121 H Oxyhemoglobin Carboxyhemoglobin 0.3 L Sodium Potassium Chloride Carbon Dioxide BUN Creatinine Glucose POC Glucose 162 H 227 H Hemoglobin A1c Ferritin AST ALT Alkaline Phosphatase Lactate Dehydrogenase C-Reactive Protein Total Protein Albumin Arterial Blood Glucose 121 H Coronavirus (PCR) 04/22/21 04/22/21 04/23/21 16:26 22:23 04:52 WBC MCH MCHC RDW 15.7 H Lymph % (Auto) Lymph # (Auto) [place] # (Auto) Baso # (Auto) Seg Neutrophils % Seg Neuts % (Manual) Lymphocytes % (Manual) Seg Neutrophils # Seg Neutrophils # Man Lymphocytes # (Manual) D-Dimer ABG pH POC ABG pO2 ABG pO2 ABG HCO3 ABG O2 Saturation ABG Base Excess ABG Oxyhemoglobin ABG Sodium ABG Chloride ABG Glucose Oxyhemoglobin Carboxyhemoglobin Sodium Potassium Chloride Carbon Dioxide BUN Creatinine Glucose POC Glucose 200 H 136 H Hemoglobin A1c Ferritin AST ALT Alkaline Phosphatase Lactate Dehydrogenase C-Reactive Protein Total Protein Albumin Arterial Blood Glucose Coronavirus (PCR) 04/23/21 04/23/21 04/23/21 04:52 12:06 17:41 WBC MCH MCHC RDW Lymph % (Auto) Lymph # (Auto) [place] # (Auto) Baso # (Auto) Seg Neutrophils % Seg Neuts % (Manual) Lymphocytes % (Manual) Seg Neutrophils # Seg Neutrophils # Man Lymphocytes # (Manual) D-Dimer ABG pH POC ABG pO2 ABG pO2 ABG HCO3 ABG O2 Saturation ABG Base Excess ABG Oxyhemoglobin ABG Sodium ABG Chloride ABG Glucose Oxyhemoglobin Carboxyhemoglobin Sodium 136 L Potassium Chloride 97.7 L Carbon Dioxide BUN 23 H Creatinine Glucose 101 H POC Glucose 202 H 169 H Hemoglobin A1c Ferritin AST 46 H ALT Alkaline Phosphatase Lactate Dehydrogenase C-Reactive Protein Total Protein Albumin 3.3 L Arterial Blood Glucose Coronavirus (PCR) 04/23/21 04/24/21 04/24/21 23:08 05:17 08:38 WBC MCH MCHC RDW Lymph % (Auto) Lymph # (Auto) [place] # (Auto) Baso # (Auto) Seg Neutrophils % Seg Neuts % (Manual) Lymphocytes % (Manual) Seg Neutrophils # Seg Neutrophils # Man Lymphocytes # (Manual) D-Dimer ABG pH POC ABG pO2 ABG pO2 ABG HCO3 ABG O2 Saturation ABG Base Excess ABG Oxyhemoglobin ABG Sodium ABG Chloride ABG Glucose Oxyhemoglobin Carboxyhemoglobin Sodium Potassium Chloride Carbon Dioxide BUN Creatinine Glucose POC Glucose 111 H 108 H 126 H Hemoglobin A1c Ferritin AST ALT Alkaline Phosphatase Lactate Dehydrogenase C-Reactive Protein Total Protein Albumin Arterial Blood Glucose Coronavirus (PCR) 04/24/21 04/24/21 04/24/21 11:54 17:57 21:23 WBC MCH MCHC RDW Lymph % (Auto) Lymph # (Auto) [place] # (Auto) Baso # (Auto) Seg Neutrophils % Seg Neuts % (Manual) Lymphocytes % (Manual) Seg Neutrophils # Seg Neutrophils # Man Lymphocytes # (Manual) D-Dimer ABG pH POC ABG pO2 ABG pO2 ABG HCO3 ABG O2 Saturation ABG Base Excess ABG Oxyhemoglobin ABG Sodium ABG Chloride ABG Glucose Oxyhemoglobin Carboxyhemoglobin Sodium Potassium Chloride Carbon Dioxide BUN Creatinine Glucose POC Glucose 147 H 177 H 138 H Hemoglobin A1c Ferritin AST ALT Alkaline Phosphatase Lactate Dehydrogenase C-Reactive Protein Total Protein Albumin Arterial Blood Glucose Coronavirus (PCR) 04/25/21 04/25/21 04/25/21 07:06 11:23 15:43 WBC MCH MCHC RDW Lymph % (Auto) Lymph # (Auto) [place] # (Auto) Baso # (Auto) Seg Neutrophils % Seg Neuts % (Manual) Lymphocytes % (Manual) Seg Neutrophils # Seg Neutrophils # Man Lymphocytes # (Manual) D-Dimer ABG pH POC ABG pO2 ABG pO2 ABG HCO3 ABG O2 Saturation ABG Base Excess ABG Oxyhemoglobin ABG Sodium ABG Chloride ABG Glucose Oxyhemoglobin Carboxyhemoglobin Sodium Potassium Chloride Carbon Dioxide BUN Creatinine Glucose POC Glucose 147 H 169 H 227 H Hemoglobin A1c Ferritin AST ALT Alkaline Phosphatase Lactate Dehydrogenase C-Reactive Protein Total Protein Albumin Arterial Blood Glucose Coronavirus (PCR) 04/25/21 04/26/21 04/26/21 21:22 02:45 05:15 WBC MCH MCHC RDW Lymph % (Auto) Lymph # (Auto) [place] # (Auto) Baso # (Auto) Seg Neutrophils % Seg Neuts % (Manual) Lymphocytes % (Manual) Seg Neutrophils # Seg Neutrophils # Man Lymphocytes # (Manual) D-Dimer ABG pH POC ABG pO2 70.7 L ABG pO2 ABG HCO3 ABG O2 Saturation ABG Base Excess ABG Oxyhemoglobin 93.0 L ABG Sodium 132.7 L ABG Chloride ABG Glucose 115 H Oxyhemoglobin Carboxyhemoglobin Sodium Potassium Chloride 95.8 L Carbon Dioxide 32 H BUN 20 H Creatinine Glucose 102 H POC Glucose 196 H Hemoglobin A1c Ferritin AST ALT Alkaline Phosphatase Lactate Dehydrogenase C-Reactive Protein Total Protein Albumin Arterial Blood Glucose 115 H Coronavirus (PCR) 04/26/21 04/26/21 04/26/21 11:49 16:09 21:07 WBC MCH MCHC RDW Lymph % (Auto) Lymph # (Auto) [place] # (Auto) Baso # (Auto) Seg Neutrophils % Seg Neuts % (Manual) Lymphocytes % (Manual) Seg Neutrophils # Seg Neutrophils # Man Lymphocytes # (Manual) D-Dimer ABG pH POC ABG pO2 ABG pO2 ABG HCO3 ABG O2 Saturation ABG Base Excess ABG Oxyhemoglobin ABG Sodium ABG Chloride ABG Glucose Oxyhemoglobin Carboxyhemoglobin Sodium Potassium Chloride Carbon Dioxide BUN Creatinine Glucose POC Glucose 114 H 188 H 136 H Hemoglobin A1c Ferritin AST ALT Alkaline Phosphatase Lactate Dehydrogenase C-Reactive Protein Total Protein Albumin Arterial Blood Glucose Coronavirus (PCR) 04/27/21 04/27/21 04/28/21 17:34 22:12 08:26 WBC MCH MCHC RDW Lymph % (Auto) Lymph # (Auto) [place] # (Auto) Baso # (Auto) Seg Neutrophils % Seg Neuts % (Manual) Lymphocytes % (Manual) Seg Neutrophils # Seg Neutrophils # Man Lymphocytes # (Manual) D-Dimer ABG pH POC ABG pO2 ABG pO2 ABG HCO3 ABG O2 Saturation ABG Base Excess ABG Oxyhemoglobin ABG Sodium ABG Chloride ABG Glucose Oxyhemoglobin Carboxyhemoglobin Sodium Potassium Chloride Carbon Dioxide BUN Creatinine Glucose POC Glucose 128 H 159 H 69 L Hemoglobin A1c Ferritin AST ALT Alkaline Phosphatase Lactate Dehydrogenase C-Reactive Protein Total Protein Albumin Arterial Blood Glucose Coronavirus (PCR) 04/28/21 04/28/21 04/29/21 12:22 21:11 06:05 WBC MCH MCHC RDW Lymph % (Auto) Lymph # (Auto) [place] # (Auto) Baso # (Auto) Seg Neutrophils % Seg Neuts % (Manual) Lymphocytes % (Manual) Seg Neutrophils # Seg Neutrophils # Man Lymphocytes # (Manual) D-Dimer ABG pH POC ABG pO2 ABG pO2 ABG HCO3 ABG O2 Saturation ABG Base Excess ABG Oxyhemoglobin ABG Sodium ABG Chloride ABG Glucose Oxyhemoglobin Carboxyhemoglobin Sodium 132 L Potassium Chloride 94.4 L Carbon Dioxide BUN Creatinine 0.2 L D Glucose 140 H POC Glucose 141 H 171 H Hemoglobin A1c Ferritin AST ALT Alkaline Phosphatase Lactate Dehydrogenase C-Reactive Protein Total Protein Albumin Arterial Blood Glucose Coronavirus (PCR) 04/29/21 04/29/21 04/29/21 06:05 07:24 11:36 WBC MCH MCHC 35 H RDW 15.9 H Lymph % (Auto) Lymph # (Auto) [place] # (Auto) Baso # (Auto) Seg Neutrophils % Seg Neuts % (Manual) Lymphocytes % (Manual) Seg Neutrophils # Seg Neutrophils # Man Lymphocytes # (Manual) D-Dimer ABG pH POC ABG pO2 ABG pO2 ABG HCO3 ABG O2 Saturation ABG Base Excess ABG Oxyhemoglobin ABG Sodium ABG Chloride ABG Glucose Oxyhemoglobin Carboxyhemoglobin Sodium Potassium Chloride Carbon Dioxide BUN Creatinine Glucose POC Glucose 141 H 220 H Hemoglobin A1c Ferritin AST ALT Alkaline Phosphatase Lactate Dehydrogenase C-Reactive Protein Total Protein Albumin Arterial Blood Glucose Coronavirus (PCR) 04/29/21 04/29/21 04/29/21 14:23 15:30 17:06 WBC MCH MCHC RDW Lymph % (Auto) Lymph # (Auto) [place] # (Auto) Baso # (Auto) Seg Neutrophils % Seg Neuts % (Manual) Lymphocytes % (Manual) Seg Neutrophils # Seg Neutrophils # Man Lymphocytes # (Manual) D-Dimer ABG pH POC ABG pO2 ABG pO2 52.6 L ABG HCO3 ABG O2 Saturation 86.4 L ABG Base Excess ABG Oxyhemoglobin ABG Sodium ABG Chloride ABG Glucose Oxyhemoglobin 84.6 L Carboxyhemoglobin Sodium Potassium Chloride Carbon Dioxide BUN Creatinine Glucose POC Glucose 173 H 158 H Hemoglobin A1c Ferritin AST ALT Alkaline Phosphatase Lactate Dehydrogenase C-Reactive Protein Total Protein Albumin Arterial Blood Glucose Coronavirus (PCR) 04/29/21 04/30/21 04/30/21 21:27 07:16 08:00 WBC MCH MCHC RDW 16.1 H Lymph % (Auto) Lymph # (Auto) [place] # (Auto) Baso # (Auto) Seg Neutrophils % Seg Neuts % (Manual) Lymphocytes % (Manual) Seg Neutrophils # Seg Neutrophils # Man Lymphocytes # (Manual) D-Dimer ABG pH POC ABG pO2 ABG pO2 ABG HCO3 ABG O2 Saturation ABG Base Excess ABG Oxyhemoglobin ABG Sodium ABG Chloride ABG Glucose Oxyhemoglobin Carboxyhemoglobin Sodium Potassium Chloride Carbon Dioxide BUN Creatinine Glucose POC Glucose 244 H 175 H Hemoglobin A1c Ferritin AST ALT Alkaline Phosphatase Lactate Dehydrogenase C-Reactive Protein Total Protein Albumin Arterial Blood Glucose Coronavirus (PCR) 04/30/21 04/30/21 04/30/21 08:00 08:00 11:03 WBC MCH MCHC RDW Lymph % (Auto) Lymph # (Auto) [place] # (Auto) Baso # (Auto) Seg Neutrophils % Seg Neuts % (Manual) Lymphocytes % (Manual) Seg Neutrophils # Seg Neutrophils # Man Lymphocytes # (Manual) D-Dimer 1796.87 H ABG pH POC ABG pO2 ABG pO2 ABG HCO3 ABG O2 Saturation ABG Base Excess ABG Oxyhemoglobin ABG Sodium ABG Chloride ABG Glucose Oxyhemoglobin Carboxyhemoglobin Sodium 135 L Potassium Chloride 96.3 L Carbon Dioxide BUN Creatinine 0.2 L Glucose 153 H POC Glucose 183 H Hemoglobin A1c Ferritin AST 41 H ALT 76 H Alkaline Phosphatase 160 H Lactate Dehydrogenase 522 H C-Reactive Protein Total Protein 6.1 L Albumin 3.1 L Arterial Blood Glucose Coronavirus (PCR) 04/30/21 04/30/21 05/01/21 17:04 22:17 05:39 WBC MCH MCHC RDW Lymph % (Auto) Lymph # (Auto) [place] # (Auto) Baso # (Auto) Seg Neutrophils % Seg Neuts % (Manual) Lymphocytes % (Manual) Seg Neutrophils # Seg Neutrophils # Man Lymphocytes # (Manual) D-Dimer ABG pH POC ABG pO2 ABG pO2 ABG HCO3 ABG O2 Saturation ABG Base Excess ABG Oxyhemoglobin ABG Sodium ABG Chloride ABG Glucose Oxyhemoglobin Carboxyhemoglobin Sodium 133 L Potassium Chloride 92.1 L Carbon Dioxide BUN 24 H Creatinine 0.4 L D Glucose 269 H POC Glucose 167 H 208 H Hemoglobin A1c Ferritin AST ALT 66 H Alkaline Phosphatase 142 H Lactate Dehydrogenase C-Reactive Protein Total Protein Albumin 3.2 L Arterial Blood Glucose Coronavirus (PCR) 05/01/21 05/01/21 05/01/21 05:39 05:39 07:45 WBC MCH MCHC RDW 16.0 H Lymph % (Auto) Lymph # (Auto) [place] # (Auto) Baso # (Auto) Seg Neutrophils % Seg Neuts % (Manual) Lymphocytes % (Manual) Seg Neutrophils # Seg Neutrophils # Man Lymphocytes # (Manual) D-Dimer 3984.95 H ABG pH POC ABG pO2 ABG pO2 ABG HCO3 ABG O2 Saturation ABG Base Excess ABG Oxyhemoglobin ABG Sodium ABG Chloride ABG Glucose Oxyhemoglobin Carboxyhemoglobin Sodium Potassium Chloride Carbon Dioxide BUN Creatinine Glucose POC Glucose 229 H Hemoglobin A1c Ferritin AST ALT Alkaline Phosphatase Lactate Dehydrogenase C-Reactive Protein Total Protein Albumin Arterial Blood Glucose Coronavirus (PCR) 05/01/21 05/01/21 05/01/21 12:10 15:46 21:06 WBC MCH MCHC RDW Lymph % (Auto) Lymph # (Auto) [place] # (Auto) Baso # (Auto) Seg Neutrophils % Seg Neuts % (Manual) Lymphocytes % (Manual) Seg Neutrophils # Seg Neutrophils # Man Lymphocytes # (Manual) D-Dimer ABG pH POC ABG pO2 ABG pO2 ABG HCO3 ABG O2 Saturation ABG Base Excess ABG Oxyhemoglobin ABG Sodium ABG Chloride ABG Glucose Oxyhemoglobin Carboxyhemoglobin Sodium Potassium Chloride Carbon Dioxide BUN Creatinine Glucose POC Glucose 296 H 279 H 232 H Hemoglobin A1c Ferritin AST ALT Alkaline Phosphatase Lactate Dehydrogenase C-Reactive Protein Total Protein Albumin Arterial Blood Glucose Coronavirus (PCR) 05/02/21 05/02/21 05/02/21 04:55 04:55 04:55 WBC MCH MCHC RDW 16.1 H Lymph % (Auto) Lymph # (Auto) [place] # (Auto) Baso # (Auto) Seg Neutrophils % Seg Neuts % (Manual) Lymphocytes % (Manual) Seg Neutrophils # Seg Neutrophils # Man Lymphocytes # (Manual) D-Dimer 1401.08 H ABG pH POC ABG pO2 ABG pO2 ABG HCO3 ABG O2 Saturation ABG Base Excess ABG Oxyhemoglobin ABG Sodium ABG Chloride ABG Glucose Oxyhemoglobin Carboxyhemoglobin Sodium 131 L Potassium Chloride 95.5 L Carbon Dioxide BUN 20 H Creatinine 0.3 L Glucose 288 H POC Glucose Hemoglobin A1c Ferritin AST ALT Alkaline Phosphatase Lactate Dehydrogenase C-Reactive Protein Total Protein 6.0 L Albumin 3.1 L Arterial Blood Glucose Coronavirus (PCR) 05/02/21 05/02/21 05/02/21 07:53 11:45 15:25 WBC MCH MCHC RDW Lymph % (Auto) Lymph # (Auto) [place] # (Auto) Baso # (Auto) Seg Neutrophils % Seg Neuts % (Manual) Lymphocytes % (Manual) Seg Neutrophils # Seg Neutrophils # Man Lymphocytes # (Manual) D-Dimer ABG pH POC ABG pO2 ABG pO2 ABG HCO3 ABG O2 Saturation ABG Base Excess ABG Oxyhemoglobin ABG Sodium ABG Chloride ABG Glucose Oxyhemoglobin Carboxyhemoglobin Sodium Potassium Chloride Carbon Dioxide BUN Creatinine Glucose POC Glucose 180 H 228 H 275 H Hemoglobin A1c Ferritin AST ALT Alkaline Phosphatase Lactate Dehydrogenase C-Reactive Protein Total Protein Albumin Arterial Blood Glucose Coronavirus (PCR) 05/02/21 05/03/21 05/03/21 22:56 04:30 04:49 WBC MCH MCHC RDW Lymph % (Auto) Lymph # (Auto) [place] # (Auto) Baso # (Auto) Seg Neutrophils % Seg Neuts % (Manual) Lymphocytes % (Manual) Seg Neutrophils # Seg Neutrophils # Man Lymphocytes # (Manual) D-Dimer ABG pH 7.229 L POC ABG pO2 65.3 L ABG pO2 ABG HCO3 ABG O2 Saturation ABG Base Excess ABG Oxyhemoglobin 87.8 L ABG Sodium 133.0 L ABG Chloride 97.0 L ABG Glucose 403 H Oxyhemoglobin Carboxyhemoglobin Sodium 130 L Potassium Chloride 94.9 L Carbon Dioxide BUN 20 H Creatinine 0.5 L D Glucose 359 H POC Glucose 293 H Hemoglobin A1c Ferritin AST 54 H ALT 75 H Alkaline Phosphatase 138 H Lactate Dehydrogenase C-Reactive Protein Total Protein Albumin 3.6 L Arterial Blood Glucose 403 H Coronavirus (PCR) 05/03/21 05/03/21 05/03/21 05:27 11:26 17:57 WBC MCH MCHC RDW Lymph % (Auto) Lymph # (Auto) [place] # (Auto) Baso # (Auto) Seg Neutrophils % Seg Neuts % (Manual) Lymphocytes % (Manual) Seg Neutrophils # Seg Neutrophils # Man Lymphocytes # (Manual) D-Dimer ABG pH POC ABG pO2 ABG pO2 ABG HCO3 ABG O2 Saturation ABG Base Excess ABG Oxyhemoglobin ABG Sodium ABG Chloride ABG Glucose Oxyhemoglobin Carboxyhemoglobin Sodium Potassium Chloride Carbon Dioxide BUN Creatinine Glucose POC Glucose 361 H 297 H 226 H Hemoglobin A1c Ferritin AST ALT Alkaline Phosphatase Lactate Dehydrogenase C-Reactive Protein Total Protein Albumin Arterial Blood Glucose Coronavirus (PCR) 05/03/21 05/04/21 05/04/21 23:12 05:12 07:30 WBC MCH MCHC RDW Lymph % (Auto) Lymph # (Auto) [place] # (Auto) Baso # (Auto) Seg Neutrophils % Seg Neuts % (Manual) Lymphocytes % (Manual) Seg Neutrophils # Seg Neutrophils # Man Lymphocytes # (Manual) D-Dimer ABG pH POC ABG pO2 ABG pO2 ABG HCO3 ABG O2 Saturation ABG Base Excess ABG Oxyhemoglobin ABG Sodium ABG Chloride ABG Glucose Oxyhemoglobin Carboxyhemoglobin Sodium Potassium Chloride Carbon Dioxide BUN Creatinine Glucose POC Glucose 282 H 285 H 254 H Hemoglobin A1c Ferritin AST ALT Alkaline Phosphatase Lactate Dehydrogenase C-Reactive Protein Total Protein Albumin Arterial Blood Glucose Coronavirus (PCR) 05/04/21 05/04/21 05/04/21 08:58 11:45 16:07 WBC MCH MCHC RDW Lymph % (Auto) Lymph # (Auto) [place] # (Auto) Baso # (Auto) Seg Neutrophils % Seg Neuts % (Manual) Lymphocytes % (Manual) Seg Neutrophils # Seg Neutrophils # Man Lymphocytes # (Manual) D-Dimer ABG pH POC ABG pO2 ABG pO2 ABG HCO3 ABG O2 Saturation ABG Base Excess ABG Oxyhemoglobin ABG Sodium ABG Chloride ABG Glucose Oxyhemoglobin Carboxyhemoglobin Sodium 134 L Potassium Chloride Carbon Dioxide BUN 20 H Creatinine 0.3 L Glucose 267 H POC Glucose 244 H 297 H Hemoglobin A1c Ferritin AST ALT Alkaline Phosphatase Lactate Dehydrogenase C-Reactive Protein Total Protein 6.0 L Albumin 3.2 L Arterial Blood Glucose Coronavirus (PCR) 05/04/21 05/05/21 05/05/21 23:32 05:00 05:13 WBC MCH MCHC RDW Lymph % (Auto) Lymph # (Auto) [place] # (Auto) Baso # (Auto) Seg Neutrophils % Seg Neuts % (Manual) Lymphocytes % (Manual) Seg Neutrophils # Seg Neutrophils # Man Lymphocytes # (Manual) D-Dimer ABG pH POC ABG pO2 ABG pO2 ABG HCO3 ABG O2 Saturation ABG Base Excess ABG Oxyhemoglobin ABG Sodium ABG Chloride ABG Glucose Oxyhemoglobin Carboxyhemoglobin Sodium 132 L Potassium Chloride 96.4 L Carbon Dioxide BUN 22 H Creatinine 0.3 L Glucose 228 H POC Glucose 154 H 260 H Hemoglobin A1c Ferritin AST ALT 67 H Alkaline Phosphatase Lactate Dehydrogenase C-Reactive Protein Total Protein 6.1 L Albumin 3.2 L Arterial Blood Glucose Coronavirus (PCR) 05/05/21 05/05/21 05/05/21 11:32 17:49 23:07 WBC MCH MCHC RDW Lymph % (Auto) Lymph # (Auto) [place] # (Auto) Baso # (Auto) Seg Neutrophils % Seg Neuts % (Manual) Lymphocytes % (Manual) Seg Neutrophils # Seg Neutrophils # Man Lymphocytes # (Manual) D-Dimer ABG pH POC ABG pO2 ABG pO2 ABG HCO3 ABG O2 Saturation ABG Base Excess ABG Oxyhemoglobin ABG Sodium ABG Chloride ABG Glucose Oxyhemoglobin Carboxyhemoglobin Sodium Potassium Chloride Carbon Dioxide BUN Creatinine Glucose POC Glucose 279 H 308 H 213 H Hemoglobin A1c Ferritin AST ALT Alkaline Phosphatase Lactate Dehydrogenase C-Reactive Protein Total Protein Albumin Arterial Blood Glucose Coronavirus (PCR) 05/06/21 05/06/21 05/06/21 05:00 05:00 05:20 WBC MCH MCHC RDW 16.8 H Lymph % (Auto) Lymph # (Auto) [place] # (Auto) Baso # (Auto) Seg Neutrophils % Seg Neuts % (Manual) 99.0 H Lymphocytes % (Manual) Seg Neutrophils # Seg Neutrophils # Man 10.9 H Lymphocytes # (Manual) 0.0 L D-Dimer ABG pH POC ABG pO2 ABG pO2 ABG HCO3 ABG O2 Saturation ABG Base Excess ABG Oxyhemoglobin ABG Sodium ABG Chloride ABG Glucose Oxyhemoglobin Carboxyhemoglobin Sodium 133 L Potassium Chloride Carbon Dioxide BUN 21 H Creatinine 0.3 L Glucose 259 H POC Glucose 308 H Hemoglobin A1c Ferritin AST ALT Alkaline Phosphatase Lactate Dehydrogenase C-Reactive Protein Total Protein Albumin 3.2 L Arterial Blood Glucose Coronavirus (PCR) 05/06/21 05/06/21 05/06/21 11:24 17:54 21:32 WBC MCH MCHC RDW Lymph % (Auto) Lymph # (Auto) [place] # (Auto) Baso # (Auto) Seg Neutrophils % Seg Neuts % (Manual) Lymphocytes % (Manual) Seg Neutrophils # Seg Neutrophils # Man Lymphocytes # (Manual) D-Dimer ABG pH POC ABG pO2 ABG pO2 ABG HCO3 ABG O2 Saturation ABG Base Excess ABG Oxyhemoglobin ABG Sodium ABG Chloride ABG Glucose Oxyhemoglobin Carboxyhemoglobin Sodium Potassium Chloride Carbon Dioxide BUN Creatinine Glucose POC Glucose 262 H 124 H 246 H Hemoglobin A1c Ferritin AST ALT Alkaline Phosphatase Lactate Dehydrogenase C-Reactive Protein Total Protein Albumin Arterial Blood Glucose Coronavirus (PCR) 05/06/21 05/07/21 05/07/21 23:10 04:54 04:54 WBC MCH MCHC RDW Lymph % (Auto) Lymph # (Auto) [place] # (Auto) Baso # (Auto) Seg Neutrophils % Seg Neuts % (Manual) Lymphocytes % (Manual) Seg Neutrophils # Seg Neutrophils # Man Lymphocytes # (Manual) D-Dimer 1609.28 H ABG pH POC ABG pO2 ABG pO2 ABG HCO3 ABG O2 Saturation ABG Base Excess ABG Oxyhemoglobin ABG Sodium ABG Chloride ABG Glucose Oxyhemoglobin Carboxyhemoglobin Sodium 136 L Potassium Chloride Carbon Dioxide BUN 23 H Creatinine 0.3 L Glucose 110 H POC Glucose 249 H Hemoglobin A1c Ferritin AST ALT Alkaline Phosphatase Lactate Dehydrogenase C-Reactive Protein Total Protein 6.2 L Albumin 3.0 L Arterial Blood Glucose Coronavirus (PCR) 05/07/21 05/07/21 05/07/21 04:54 04:54 11:41 WBC MCH MCHC RDW Lymph % (Auto) Lymph # (Auto) [place] # (Auto) Baso # (Auto) Seg Neutrophils % Seg Neuts % (Manual) Lymphocytes % (Manual) Seg Neutrophils # Seg Neutrophils # Man Lymphocytes # (Manual) D-Dimer ABG pH POC ABG pO2 ABG pO2 ABG HCO3 ABG O2 Saturation ABG Base Excess ABG Oxyhemoglobin ABG Sodium ABG Chloride ABG Glucose Oxyhemoglobin Carboxyhemoglobin Sodium Potassium Chloride Carbon Dioxide BUN Creatinine Glucose POC Glucose 118 H Hemoglobin A1c Ferritin 296.1 H AST ALT Alkaline Phosphatase Lactate Dehydrogenase 724 H C-Reactive Protein Total Protein Albumin Arterial Blood Glucose Coronavirus (PCR) 05/07/21 05/07/21 05/08/21 16:43 22:34 06:44 WBC MCH MCHC RDW Lymph % (Auto) Lymph # (Auto) [place] # (Auto) Baso # (Auto) Seg Neutrophils % Seg Neuts % (Manual) Lymphocytes % (Manual) Seg Neutrophils # Seg Neutrophils # Man Lymphocytes # (Manual) D-Dimer ABG pH POC ABG pO2 ABG pO2 ABG HCO3 ABG O2 Saturation ABG Base Excess ABG Oxyhemoglobin ABG Sodium ABG Chloride ABG Glucose Oxyhemoglobin Carboxyhemoglobin Sodium Potassium Chloride Carbon Dioxide BUN Creatinine Glucose POC Glucose 159 H 233 H 235 H Hemoglobin A1c Ferritin AST ALT Alkaline Phosphatase Lactate Dehydrogenase C-Reactive Protein Total Protein Albumin Arterial Blood Glucose Coronavirus (PCR) 05/08/21 05/08/21 05/08/21 07:49 11:56 17:13 WBC MCH MCHC RDW Lymph % (Auto) Lymph # (Auto) [place] # (Auto) Baso # (Auto) Seg Neutrophils % Seg Neuts % (Manual) Lymphocytes % (Manual) Seg Neutrophils # Seg Neutrophils # Man Lymphocytes # (Manual) D-Dimer ABG pH POC ABG pO2 ABG pO2 ABG HCO3 ABG O2 Saturation ABG Base Excess ABG Oxyhemoglobin ABG Sodium ABG Chloride ABG Glucose Oxyhemoglobin Carboxyhemoglobin Sodium Potassium Chloride Carbon Dioxide BUN Creatinine Glucose POC Glucose 219 H 184 H 182 H Hemoglobin A1c Ferritin AST ALT Alkaline Phosphatase Lactate Dehydrogenase C-Reactive Protein Total Protein Albumin Arterial Blood Glucose Coronavirus (PCR) 05/08/21 05/09/21 05/09/21 23:35 05:20 05:20 WBC MCH MCHC RDW Lymph % (Auto) Lymph # (Auto) [place] # (Auto) Baso # (Auto) Seg Neutrophils % Seg Neuts % (Manual) Lymphocytes % (Manual) Seg Neutrophils # Seg Neutrophils # Man Lymphocytes # (Manual) D-Dimer 1003.87 H ABG pH POC ABG pO2 ABG pO2 ABG HCO3 ABG O2 Saturation ABG Base Excess ABG Oxyhemoglobin ABG Sodium ABG Chloride ABG Glucose Oxyhemoglobin Carboxyhemoglobin Sodium Potassium Chloride Carbon Dioxide BUN Creatinine Glucose POC Glucose 198 H Hemoglobin A1c Ferritin 378.7 H AST ALT Alkaline Phosphatase Lactate Dehydrogenase C-Reactive Protein Total Protein Albumin Arterial Blood Glucose Coronavirus (PCR) 05/09/21 05/09/21 05/09/21 05:20 06:04 12:53 WBC MCH MCHC RDW Lymph % (Auto) Lymph # (Auto) [place] # (Auto) Baso # (Auto) Seg Neutrophils % Seg Neuts % (Manual) Lymphocytes % (Manual) Seg Neutrophils # Seg Neutrophils # Man Lymphocytes # (Manual) D-Dimer ABG pH POC ABG pO2 ABG pO2 ABG HCO3 ABG O2 Saturation ABG Base Excess ABG Oxyhemoglobin ABG Sodium ABG Chloride ABG Glucose Oxyhemoglobin Carboxyhemoglobin Sodium Potassium Chloride Carbon Dioxide BUN Creatinine Glucose POC Glucose 159 H 180 H Hemoglobin A1c Ferritin AST ALT Alkaline Phosphatase Lactate Dehydrogenase 558 H C-Reactive Protein 2.40 H Total Protein Albumin Arterial Blood Glucose Coronavirus (PCR) 05/09/21 05/09/21 05/10/21 16:43 21:27 10:18 WBC MCH MCHC RDW Lymph % (Auto) Lymph # (Auto) [place] # (Auto) Baso # (Auto) Seg Neutrophils % Seg Neuts % (Manual) Lymphocytes % (Manual) Seg Neutrophils # Seg Neutrophils # Man Lymphocytes # (Manual) D-Dimer ABG pH POC ABG pO2 ABG pO2 ABG HCO3 ABG O2 Saturation ABG Base Excess ABG Oxyhemoglobin ABG Sodium ABG Chloride ABG Glucose Oxyhemoglobin Carboxyhemoglobin Sodium Potassium Chloride Carbon Dioxide BUN Creatinine Glucose POC Glucose 212 H 285 H 261 H Hemoglobin A1c Ferritin AST ALT Alkaline Phosphatase Lactate Dehydrogenase C-Reactive Protein Total Protein Albumin Arterial Blood Glucose Coronavirus (PCR) 05/10/21 05/10/21 05/11/21 17:58 18:02 00:29 WBC MCH MCHC RDW Lymph % (Auto) Lymph # (Auto) [place] # (Auto) Baso # (Auto) Seg Neutrophils % Seg Neuts % (Manual) Lymphocytes % (Manual) Seg Neutrophils # Seg Neutrophils # Man Lymphocytes # (Manual) D-Dimer ABG pH POC ABG pO2 ABG pO2 ABG HCO3 ABG O2 Saturation ABG Base Excess ABG Oxyhemoglobin ABG Sodium ABG Chloride ABG Glucose Oxyhemoglobin Carboxyhemoglobin Sodium Potassium Chloride Carbon Dioxide BUN Creatinine Glucose POC Glucose 213 H 179 H 149 H Hemoglobin A1c Ferritin AST ALT Alkaline Phosphatase Lactate Dehydrogenase C-Reactive Protein Total Protein Albumin Arterial Blood Glucose Coronavirus (PCR) 05/11/21 05/11/21 05/11/21 05:22 11:32 17:00 WBC 14.9 H MCH MCHC RDW 18.9 H Lymph % (Auto) 4.9 L Lymph # (Auto) 0.7 L [place] # (Auto) Baso # (Auto) 0.2 H Seg Neutrophils % Seg Neuts % (Manual) Lymphocytes % (Manual) Seg Neutrophils # 13.3 H Seg Neutrophils # Man Lymphocytes # (Manual) D-Dimer ABG pH POC ABG pO2 ABG pO2 ABG HCO3 ABG O2 Saturation ABG Base Excess ABG Oxyhemoglobin ABG Sodium ABG Chloride ABG Glucose Oxyhemoglobin Carboxyhemoglobin Sodium Potassium Chloride Carbon Dioxide BUN Creatinine Glucose POC Glucose 162 H 179 H Hemoglobin A1c Ferritin AST ALT Alkaline Phosphatase Lactate Dehydrogenase C-Reactive Protein Total Protein Albumin Arterial Blood Glucose Coronavirus (PCR) 05/11/21 05/11/21 05/11/21 17:00 17:33 22:03 WBC MCH MCHC RDW Lymph % (Auto) Lymph # (Auto) [place] # (Auto) Baso # (Auto) Seg Neutrophils % Seg Neuts % (Manual) Lymphocytes % (Manual) Seg Neutrophils # Seg Neutrophils # Man Lymphocytes # (Manual) D-Dimer ABG pH POC ABG pO2 ABG pO2 ABG HCO3 ABG O2 Saturation ABG Base Excess ABG Oxyhemoglobin ABG Sodium ABG Chloride ABG Glucose Oxyhemoglobin Carboxyhemoglobin Sodium 135 L Potassium Chloride 97.3 L Carbon Dioxide BUN 21 H Creatinine 0.3 L Glucose 133 H POC Glucose 140 H 282 H Hemoglobin A1c Ferritin AST ALT 60 H Alkaline Phosphatase Lactate Dehydrogenase C-Reactive Protein Total Protein Albumin 3.1 L Arterial Blood Glucose Coronavirus (PCR) 05/12/21 05/12/21 05/12/21 04:05 04:05 04:05 WBC MCH MCHC RDW 18.4 H Lymph % (Auto) Lymph # (Auto) [place] # (Auto) Baso # (Auto) Seg Neutrophils % Seg Neuts % (Manual) 94.0 H Lymphocytes % (Manual) 4.0 L Seg Neutrophils # Seg Neutrophils # Man Lymphocytes # (Manual) 0.3 L D-Dimer ABG pH POC ABG pO2 ABG pO2 ABG HCO3 ABG O2 Saturation ABG Base Excess ABG Oxyhemoglobin ABG Sodium ABG Chloride ABG Glucose Oxyhemoglobin Carboxyhemoglobin Sodium 136 L Potassium Chloride Carbon Dioxide BUN 18 H Creatinine 0.2 L Glucose 142 H POC Glucose Hemoglobin A1c Ferritin 350.7 H AST ALT Alkaline Phosphatase Lactate Dehydrogenase 546 H C-Reactive Protein Total Protein 6.1 L Albumin 3.0 L Arterial Blood Glucose Coronavirus (PCR) 05/12/21 05/12/21 05/12/21 05:11 11:17 16:27 WBC MCH MCHC RDW Lymph % (Auto) Lymph # (Auto) [place] # (Auto) Baso # (Auto) Seg Neutrophils % Seg Neuts % (Manual) Lymphocytes % (Manual) Seg Neutrophils # Seg Neutrophils # Man Lymphocytes # (Manual) D-Dimer ABG pH POC ABG pO2 ABG pO2 ABG HCO3 ABG O2 Saturation ABG Base Excess ABG Oxyhemoglobin ABG Sodium ABG Chloride ABG Glucose Oxyhemoglobin Carboxyhemoglobin Sodium Potassium Chloride Carbon Dioxide BUN Creatinine Glucose POC Glucose 152 H 190 H 261 H Hemoglobin A1c Ferritin AST ALT Alkaline Phosphatase Lactate Dehydrogenase C-Reactive Protein Total Protein Albumin Arterial Blood Glucose Coronavirus (PCR) 05/12/21 05/13/21 05/13/21 20:55 11:08 21:41 WBC MCH MCHC RDW Lymph % (Auto) Lymph # (Auto) [place] # (Auto) Baso # (Auto) Seg Neutrophils % Seg Neuts % (Manual) Lymphocytes % (Manual) Seg Neutrophils # Seg Neutrophils # Man Lymphocytes # (Manual) D-Dimer ABG pH POC ABG pO2 ABG pO2 ABG HCO3 ABG O2 Saturation ABG Base Excess ABG Oxyhemoglobin ABG Sodium ABG Chloride ABG Glucose Oxyhemoglobin Carboxyhemoglobin Sodium Potassium Chloride Carbon Dioxide BUN Creatinine Glucose POC Glucose 231 H 106 H 174 H Hemoglobin A1c Ferritin AST ALT Alkaline Phosphatase Lactate Dehydrogenase C-Reactive Protein Total Protein Albumin Arterial Blood Glucose Coronavirus (PCR) 05/14/21 05/14/21 05/14/21 00:53 02:23 06:06 WBC MCH MCHC RDW Lymph % (Auto) Lymph # (Auto) [place] # (Auto) Baso # (Auto) Seg Neutrophils % Seg Neuts % (Manual) Lymphocytes % (Manual) Seg Neutrophils # Seg Neutrophils # Man Lymphocytes # (Manual) D-Dimer ABG pH POC ABG pO2 ABG pO2 130.3 H ABG HCO3 30.6 H ABG O2 Saturation ABG Base Excess 4.9 H ABG Oxyhemoglobin ABG Sodium ABG Chloride ABG Glucose Oxyhemoglobin Carboxyhemoglobin Sodium Potassium Chloride Carbon Dioxide BUN Creatinine Glucose POC Glucose 229 H 119 H Hemoglobin A1c Ferritin AST ALT Alkaline Phosphatase Lactate Dehydrogenase C-Reactive Protein Total Protein Albumin Arterial Blood Glucose Coronavirus (PCR) 05/14/21 05/14/21 05/14/21 07:13 07:13 07:13 WBC MCH MCHC RDW Lymph % (Auto) Lymph # (Auto) [place] # (Auto) Baso # (Auto) Seg Neutrophils % Seg Neuts % (Manual) Lymphocytes % (Manual) Seg Neutrophils # Seg Neutrophils # Man Lymphocytes # (Manual) D-Dimer 712.80 H ABG pH POC ABG pO2 ABG pO2 ABG HCO3 ABG O2 Saturation ABG Base Excess ABG Oxyhemoglobin ABG Sodium ABG Chloride ABG Glucose Oxyhemoglobin Carboxyhemoglobin Sodium 133 L Potassium Chloride 95.5 L Carbon Dioxide 32 H BUN Creatinine 0.2 L Glucose 137 H POC Glucose Hemoglobin A1c Ferritin 283.5 H AST ALT 63 H Alkaline Phosphatase Lactate Dehydrogenase 563 H C-Reactive Protein Total Protein 6.1 L Albumin 3.0 L Arterial Blood Glucose Coronavirus (PCR) 05/14/21 05/14/21 05/14/21 12:21 15:33 21:50 WBC MCH MCHC RDW Lymph % (Auto) Lymph # (Auto) [place] # (Auto) Baso # (Auto) Seg Neutrophils % Seg Neuts % (Manual) Lymphocytes % (Manual) Seg Neutrophils # Seg Neutrophils # Man Lymphocytes # (Manual) D-Dimer ABG pH POC ABG pO2 ABG pO2 ABG HCO3 ABG O2 Saturation ABG Base Excess ABG Oxyhemoglobin ABG Sodium ABG Chloride ABG Glucose Oxyhemoglobin Carboxyhemoglobin Sodium Potassium Chloride Carbon Dioxide BUN Creatinine Glucose POC Glucose 143 H 204 H 202 H Hemoglobin A1c Ferritin AST ALT Alkaline Phosphatase Lactate Dehydrogenase C-Reactive Protein Total Protein Albumin Arterial Blood Glucose Coronavirus (PCR) 05/15/21 05/15/21 05/15/21 05:05 11:12 16:39 WBC MCH MCHC RDW Lymph % (Auto) Lymph # (Auto) [place] # (Auto) Baso # (Auto) Seg Neutrophils % Seg Neuts % (Manual) Lymphocytes % (Manual) Seg Neutrophils # Seg Neutrophils # Man Lymphocytes # (Manual) D-Dimer ABG pH POC ABG pO2 ABG pO2 ABG HCO3 ABG O2 Saturation ABG Base Excess ABG Oxyhemoglobin ABG Sodium ABG Chloride ABG Glucose Oxyhemoglobin Carboxyhemoglobin Sodium Potassium Chloride Carbon Dioxide BUN Creatinine Glucose POC Glucose 125 H 201 H 241 H Hemoglobin A1c Ferritin AST ALT Alkaline Phosphatase Lactate Dehydrogenase C-Reactive Protein Total Protein Albumin Arterial Blood Glucose Coronavirus (PCR) 05/15/21 05/16/21 05/16/21 21:31 05:04 10:40 WBC MCH MCHC RDW Lymph % (Auto) Lymph # (Auto) [place] # (Auto) Baso # (Auto) Seg Neutrophils % Seg Neuts % (Manual) Lymphocytes % (Manual) Seg Neutrophils # Seg Neutrophils # Man Lymphocytes # (Manual) D-Dimer ABG pH POC ABG pO2 ABG pO2 ABG HCO3 ABG O2 Saturation ABG Base Excess ABG Oxyhemoglobin ABG Sodium ABG Chloride ABG Glucose Oxyhemoglobin Carboxyhemoglobin Sodium Potassium Chloride Carbon Dioxide BUN Creatinine Glucose POC Glucose 234 H 123 H 231 H Hemoglobin A1c Ferritin AST ALT Alkaline Phosphatase Lactate Dehydrogenase C-Reactive Protein Total Protein Albumin Arterial Blood Glucose Coronavirus (PCR) 05/16/21 05/16/21 05/17/21 18:23 21:29 06:20 WBC MCH MCHC RDW 18.8 H Lymph % (Auto) 10.2 L Lymph # (Auto) 0.8 L [place] # (Auto) Baso # (Auto) Seg Neutrophils % 85.8 H Seg Neuts % (Manual) Lymphocytes % (Manual) Seg Neutrophils # Seg Neutrophils # Man Lymphocytes # (Manual) D-Dimer ABG pH POC ABG pO2 ABG pO2 ABG HCO3 ABG O2 Saturation ABG Base Excess ABG Oxyhemoglobin ABG Sodium ABG Chloride ABG Glucose Oxyhemoglobin Carboxyhemoglobin Sodium Potassium Chloride Carbon Dioxide BUN Creatinine Glucose POC Glucose 266 H 234 H Hemoglobin A1c Ferritin AST ALT Alkaline Phosphatase Lactate Dehydrogenase C-Reactive Protein Total Protein Albumin Arterial Blood Glucose Coronavirus (PCR) 05/17/21 05/17/21 05/17/21 06:20 11:06 16:36 WBC MCH MCHC RDW Lymph % (Auto) Lymph # (Auto) [place] # (Auto) Baso # (Auto) Seg Neutrophils % Seg Neuts % (Manual) Lymphocytes % (Manual) Seg Neutrophils # Seg Neutrophils # Man Lymphocytes # (Manual) D-Dimer ABG pH POC ABG pO2 ABG pO2 ABG HCO3 ABG O2 Saturation ABG Base Excess ABG Oxyhemoglobin ABG Sodium ABG Chloride ABG Glucose Oxyhemoglobin Carboxyhemoglobin Sodium Potassium Chloride Carbon Dioxide 33 H BUN Creatinine 0.2 L Glucose 101 H POC Glucose 209 H 180 H Hemoglobin A1c Ferritin AST ALT Alkaline Phosphatase Lactate Dehydrogenase C-Reactive Protein Total Protein Albumin Arterial Blood Glucose Coronavirus (PCR) 05/17/21 05/18/21 05/18/21 21:06 12:00 15:06 WBC MCH MCHC RDW Lymph % (Auto) Lymph # (Auto) [place] # (Auto) Baso # (Auto) Seg Neutrophils % Seg Neuts % (Manual) Lymphocytes % (Manual) Seg Neutrophils # Seg Neutrophils # Man Lymphocytes # (Manual) D-Dimer 874.02 H ABG pH POC ABG pO2 ABG pO2 ABG HCO3 ABG O2 Saturation ABG Base Excess ABG Oxyhemoglobin ABG Sodium ABG Chloride ABG Glucose Oxyhemoglobin Carboxyhemoglobin Sodium Potassium Chloride Carbon Dioxide BUN Creatinine Glucose POC Glucose 256 H 139 H Hemoglobin A1c Ferritin AST ALT Alkaline Phosphatase Lactate Dehydrogenase C-Reactive Protein Total Protein Albumin Arterial Blood Glucose Coronavirus (PCR) 05/18/21 05/18/21 05/18/21 15:06 15:06 16:08 WBC MCH MCHC RDW Lymph % (Auto) Lymph # (Auto) [place] # (Auto) Baso # (Auto) Seg Neutrophils % Seg Neuts % (Manual) Lymphocytes % (Manual) Seg Neutrophils # Seg Neutrophils # Man Lymphocytes # (Manual) D-Dimer ABG pH POC ABG pO2 ABG pO2 ABG HCO3 ABG O2 Saturation ABG Base Excess ABG Oxyhemoglobin ABG Sodium ABG Chloride ABG Glucose Oxyhemoglobin Carboxyhemoglobin Sodium Potassium Chloride Carbon Dioxide BUN Creatinine Glucose POC Glucose 178 H Hemoglobin A1c Ferritin 289.6 H AST ALT Alkaline Phosphatase Lactate Dehydrogenase 605 H C-Reactive Protein Total Protein Albumin Arterial Blood Glucose Coronavirus (PCR) 05/18/21 05/19/21 05/19/21 21:22 11:57 15:26 WBC MCH MCHC RDW Lymph % (Auto) Lymph # (Auto) [place] # (Auto) Baso # (Auto) Seg Neutrophils % Seg Neuts % (Manual) Lymphocytes % (Manual) Seg Neutrophils # Seg Neutrophils # Man Lymphocytes # (Manual) D-Dimer ABG pH POC ABG pO2 ABG pO2 ABG HCO3 ABG O2 Saturation ABG Base Excess ABG Oxyhemoglobin ABG Sodium ABG Chloride ABG Glucose Oxyhemoglobin Carboxyhemoglobin Sodium Potassium Chloride Carbon Dioxide BUN Creatinine Glucose POC Glucose 241 H 201 H 209 H Hemoglobin A1c Ferritin AST ALT Alkaline Phosphatase Lactate Dehydrogenase C-Reactive Protein Total Protein Albumin Arterial Blood Glucose Coronavirus (PCR) 05/19/21 05/20/21 05/20/21 20:59 07:38 08:01 WBC MCH MCHC RDW 19.7 H Lymph % (Auto) 8.3 L Lymph # (Auto) 0.8 L [place] # (Auto) Baso # (Auto) Seg Neutrophils % 88.6 H Seg Neuts % (Manual) Lymphocytes % (Manual) Seg Neutrophils # 8.4 H Seg Neutrophils # Man Lymphocytes # (Manual) D-Dimer ABG pH POC ABG pO2 ABG pO2 ABG HCO3 ABG O2 Saturation ABG Base Excess ABG Oxyhemoglobin ABG Sodium ABG Chloride ABG Glucose Oxyhemoglobin Carboxyhemoglobin Sodium Potassium Chloride Carbon Dioxide BUN Creatinine Glucose POC Glucose 226 H 130 H Hemoglobin A1c Ferritin AST ALT Alkaline Phosphatase Lactate Dehydrogenase C-Reactive Protein Total Protein Albumin Arterial Blood Glucose Coronavirus (PCR) 05/20/21 05/20/21 05/20/21 08:01 11:00 16:43 WBC MCH MCHC RDW Lymph % (Auto) Lymph # (Auto) [place] # (Auto) Baso # (Auto) Seg Neutrophils % Seg Neuts % (Manual) Lymphocytes % (Manual) Seg Neutrophils # Seg Neutrophils # Man Lymphocytes # (Manual) D-Dimer ABG pH POC ABG pO2 ABG pO2 ABG HCO3 ABG O2 Saturation ABG Base Excess ABG Oxyhemoglobin ABG Sodium ABG Chloride ABG Glucose Oxyhemoglobin Carboxyhemoglobin Sodium Potassium Chloride Carbon Dioxide BUN 18 H Creatinine 0.2 L Glucose 132 H POC Glucose 237 H 240 H Hemoglobin A1c Ferritin AST ALT Alkaline Phosphatase Lactate Dehydrogenase C-Reactive Protein Total Protein Albumin Arterial Blood Glucose Coronavirus (PCR) 05/20/21 05/21/21 05/21/21 21:21 07:35 11:32 WBC MCH MCHC RDW Lymph % (Auto) Lymph # (Auto) [place] # (Auto) Baso # (Auto) Seg Neutrophils % Seg Neuts % (Manual) Lymphocytes % (Manual) Seg Neutrophils # Seg Neutrophils # Man Lymphocytes # (Manual) D-Dimer ABG pH POC ABG pO2 ABG pO2 ABG HCO3 ABG O2 Saturation ABG Base Excess ABG Oxyhemoglobin ABG Sodium ABG Chloride ABG Glucose Oxyhemoglobin Carboxyhemoglobin Sodium Potassium Chloride Carbon Dioxide BUN Creatinine Glucose POC Glucose 241 H 162 H 171 H Hemoglobin A1c Ferritin AST ALT Alkaline Phosphatase Lactate Dehydrogenase C-Reactive Protein Total Protein Albumin Arterial Blood Glucose Coronavirus (PCR) 05/21/21 05/21/21 05/22/21 16:22 20:43 05:14 WBC MCH MCHC RDW Lymph % (Auto) Lymph # (Auto) [place] # (Auto) Baso # (Auto) Seg Neutrophils % Seg Neuts % (Manual) Lymphocytes % (Manual) Seg Neutrophils # Seg Neutrophils # Man Lymphocytes # (Manual) D-Dimer ABG pH POC ABG pO2 ABG pO2 ABG HCO3 ABG O2 Saturation ABG Base Excess ABG Oxyhemoglobin ABG Sodium ABG Chloride ABG Glucose Oxyhemoglobin Carboxyhemoglobin Sodium Potassium Chloride Carbon Dioxide BUN Creatinine Glucose POC Glucose 244 H 299 H 140 H Hemoglobin A1c Ferritin AST ALT Alkaline Phosphatase Lactate Dehydrogenase C-Reactive Protein Total Protein Albumin Arterial Blood Glucose Coronavirus (PCR) 05/22/21 05/22/21 05/22/21 08:45 11:54 16:15 WBC MCH MCHC RDW Lymph % (Auto) Lymph # (Auto) [place] # (Auto) Baso # (Auto) Seg Neutrophils % Seg Neuts % (Manual) Lymphocytes % (Manual) Seg Neutrophils # Seg Neutrophils # Man Lymphocytes # (Manual) D-Dimer ABG pH POC ABG pO2 ABG pO2 ABG HCO3 ABG O2 Saturation ABG Base Excess ABG Oxyhemoglobin ABG Sodium ABG Chloride ABG Glucose Oxyhemoglobin Carboxyhemoglobin Sodium Potassium Chloride Carbon Dioxide BUN Creatinine Glucose POC Glucose 133 H 265 H 221 H Hemoglobin A1c Ferritin AST ALT Alkaline Phosphatase Lactate Dehydrogenase C-Reactive Protein Total Protein Albumin Arterial Blood Glucose Coronavirus (PCR) 05/22/21 05/23/21 05/23/21 21:43 08:20 09:50 WBC MCH MCHC RDW Lymph % (Auto) Lymph # (Auto) [place] # (Auto) Baso # (Auto) Seg Neutrophils % Seg Neuts % (Manual) Lymphocytes % (Manual) Seg Neutrophils # Seg Neutrophils # Man Lymphocytes # (Manual) D-Dimer 910.38 H ABG pH POC ABG pO2 ABG pO2 ABG HCO3 ABG O2 Saturation ABG Base Excess ABG Oxyhemoglobin ABG Sodium ABG Chloride ABG Glucose Oxyhemoglobin Carboxyhemoglobin Sodium Potassium Chloride Carbon Dioxide BUN Creatinine Glucose POC Glucose 262 H 140 H Hemoglobin A1c Ferritin AST ALT Alkaline Phosphatase Lactate Dehydrogenase C-Reactive Protein Total Protein Albumin Arterial Blood Glucose Coronavirus (PCR) 05/23/21 05/23/21 05/23/21 09:50 09:50 10:52 WBC MCH MCHC RDW Lymph % (Auto) Lymph # (Auto) [place] # (Auto) Baso # (Auto) Seg Neutrophils % Seg Neuts % (Manual) Lymphocytes % (Manual) Seg Neutrophils # Seg Neutrophils # Man Lymphocytes # (Manual) D-Dimer ABG pH POC ABG pO2 ABG pO2 ABG HCO3 ABG O2 Saturation ABG Base Excess ABG Oxyhemoglobin ABG Sodium ABG Chloride ABG Glucose Oxyhemoglobin Carboxyhemoglobin Sodium Potassium Chloride Carbon Dioxide BUN Creatinine Glucose POC Glucose 241 H Hemoglobin A1c Ferritin 244.9 H AST ALT Alkaline Phosphatase Lactate Dehydrogenase 584 H C-Reactive Protein Total Protein Albumin Arterial Blood Glucose Coronavirus (PCR) 05/23/21 05/23/21 05/24/21 17:24 21:52 07:44 WBC MCH MCHC RDW Lymph % (Auto) Lymph # (Auto) [place] # (Auto) Baso # (Auto) Seg Neutrophils % Seg Neuts % (Manual) Lymphocytes % (Manual) Seg Neutrophils # Seg Neutrophils # Man Lymphocytes # (Manual) D-Dimer ABG pH POC ABG pO2 ABG pO2 ABG HCO3 ABG O2 Saturation ABG Base Excess ABG Oxyhemoglobin ABG Sodium ABG Chloride ABG Glucose Oxyhemoglobin Carboxyhemoglobin Sodium Potassium Chloride Carbon Dioxide BUN Creatinine Glucose POC Glucose 197 H 289 H 161 H Hemoglobin A1c Ferritin AST ALT Alkaline Phosphatase Lactate Dehydrogenase C-Reactive Protein Total Protein Albumin Arterial Blood Glucose Coronavirus (PCR) 05/24/21 05/24/21 05/24/21 11:17 17:51 21:26 WBC MCH MCHC RDW Lymph % (Auto) Lymph # (Auto) [place] # (Auto) Baso # (Auto) Seg Neutrophils % Seg Neuts % (Manual) Lymphocytes % (Manual) Seg Neutrophils # Seg Neutrophils # Man Lymphocytes # (Manual) D-Dimer ABG pH POC ABG pO2 ABG pO2 ABG HCO3 ABG O2 Saturation ABG Base Excess ABG Oxyhemoglobin ABG Sodium ABG Chloride ABG Glucose Oxyhemoglobin Carboxyhemoglobin Sodium Potassium Chloride Carbon Dioxide BUN Creatinine Glucose POC Glucose 308 H 175 H 198 H Hemoglobin A1c Ferritin AST ALT Alkaline Phosphatase Lactate Dehydrogenase C-Reactive Protein Total Protein Albumin Arterial Blood Glucose Coronavirus (PCR) 05/25/21 05/25/21 05/25/21 08:14 11:13 17:13 WBC MCH MCHC RDW Lymph % (Auto) Lymph # (Auto) [place] # (Auto) Baso # (Auto) Seg Neutrophils % Seg Neuts % (Manual) Lymphocytes % (Manual) Seg Neutrophils # Seg Neutrophils # Man Lymphocytes # (Manual) D-Dimer ABG pH POC ABG pO2 ABG pO2 ABG HCO3 ABG O2 Saturation ABG Base Excess ABG Oxyhemoglobin ABG Sodium ABG Chloride ABG Glucose Oxyhemoglobin Carboxyhemoglobin Sodium Potassium Chloride Carbon Dioxide BUN Creatinine Glucose POC Glucose 203 H 339 H 235 H Hemoglobin A1c Ferritin AST ALT Alkaline Phosphatase Lactate Dehydrogenase C-Reactive Protein Total Protein Albumin Arterial Blood Glucose Coronavirus (PCR) 05/25/21 05/26/21 05/26/21 21:03 07:33 11:19 WBC MCH MCHC RDW Lymph % (Auto) Lymph # (Auto) [place] # (Auto) Baso # (Auto) Seg Neutrophils % Seg Neuts % (Manual) Lymphocytes % (Manual) Seg Neutrophils # Seg Neutrophils # Man Lymphocytes # (Manual) D-Dimer ABG pH POC ABG pO2 ABG pO2 ABG HCO3 ABG O2 Saturation ABG Base Excess ABG Oxyhemoglobin ABG Sodium ABG Chloride ABG Glucose Oxyhemoglobin Carboxyhemoglobin Sodium Potassium Chloride Carbon Dioxide BUN Creatinine Glucose POC Glucose 263 H 156 H 288 H Hemoglobin A1c Ferritin AST ALT Alkaline Phosphatase Lactate Dehydrogenase C-Reactive Protein Total Protein Albumin Arterial Blood Glucose Coronavirus (PCR) 05/26/21 05/26/21 05/27/21 16:26 20:55 07:38 WBC MCH MCHC RDW Lymph % (Auto) Lymph # (Auto) [place] # (Auto) Baso # (Auto) Seg Neutrophils % Seg Neuts % (Manual) Lymphocytes % (Manual) Seg Neutrophils # Seg Neutrophils # Man Lymphocytes # (Manual) D-Dimer ABG pH POC ABG pO2 ABG pO2 ABG HCO3 ABG O2 Saturation ABG Base Excess ABG Oxyhemoglobin ABG Sodium ABG Chloride ABG Glucose Oxyhemoglobin Carboxyhemoglobin Sodium Potassium Chloride Carbon Dioxide BUN Creatinine Glucose POC Glucose 286 H 293 H 115 H Hemoglobin A1c Ferritin AST ALT Alkaline Phosphatase Lactate Dehydrogenase C-Reactive Protein Total Protein Albumin Arterial Blood Glucose Coronavirus (PCR) 05/27/21 05/27/21 05/27/21 11:46 15:58 21:02 WBC MCH MCHC RDW Lymph % (Auto) Lymph # (Auto) [place] # (Auto) Baso # (Auto) Seg Neutrophils % Seg Neuts % (Manual) Lymphocytes % (Manual) Seg Neutrophils # Seg Neutrophils # Man Lymphocytes # (Manual) D-Dimer ABG pH POC ABG pO2 ABG pO2 ABG HCO3 ABG O2 Saturation ABG Base Excess ABG Oxyhemoglobin ABG Sodium ABG Chloride ABG Glucose Oxyhemoglobin Carboxyhemoglobin Sodium Potassium Chloride Carbon Dioxide BUN Creatinine Glucose POC Glucose 260 H 318 H 246 H Hemoglobin A1c Ferritin AST ALT Alkaline Phosphatase Lactate Dehydrogenase C-Reactive Protein Total Protein Albumin Arterial Blood Glucose Coronavirus (PCR) 05/28/21 05/28/21 05/28/21 07:34 11:31 16:36 WBC MCH MCHC RDW Lymph % (Auto) Lymph # (Auto) [place] # (Auto) Baso # (Auto) Seg Neutrophils % Seg Neuts % (Manual) Lymphocytes % (Manual) Seg Neutrophils # Seg Neutrophils # Man Lymphocytes # (Manual) D-Dimer ABG pH POC ABG pO2 ABG pO2 ABG HCO3 ABG O2 Saturation ABG Base Excess ABG Oxyhemoglobin ABG Sodium ABG Chloride ABG Glucose Oxyhemoglobin Carboxyhemoglobin Sodium Potassium Chloride Carbon Dioxide BUN Creatinine Glucose POC Glucose 185 H 297 H 183 H Hemoglobin A1c Ferritin AST ALT Alkaline Phosphatase Lactate Dehydrogenase C-Reactive Protein Total Protein Albumin Arterial Blood Glucose Coronavirus (PCR) 05/28/21 05/29/21 05/29/21 21:19 07:34 11:19 WBC MCH MCHC RDW Lymph % (Auto) Lymph # (Auto) [place] # (Auto) Baso # (Auto) Seg Neutrophils % Seg Neuts % (Manual) Lymphocytes % (Manual) Seg Neutrophils # Seg Neutrophils # Man Lymphocytes # (Manual) D-Dimer ABG pH POC ABG pO2 ABG pO2 ABG HCO3 ABG O2 Saturation ABG Base Excess ABG Oxyhemoglobin ABG Sodium ABG Chloride ABG Glucose Oxyhemoglobin Carboxyhemoglobin Sodium Potassium Chloride Carbon Dioxide BUN Creatinine Glucose POC Glucose 274 H 139 H 293 H Hemoglobin A1c Ferritin AST ALT Alkaline Phosphatase Lactate Dehydrogenase C-Reactive Protein Total Protein Albumin Arterial Blood Glucose Coronavirus (PCR) 05/29/21 05/29/21 05/30/21 16:36 22:44 05:55 WBC MCH MCHC RDW 21.3 H Lymph % (Auto) 8.0 L Lymph # (Auto) 0.6 L [place] # (Auto) Baso # (Auto) Seg Neutrophils % 88.6 H Seg Neuts % (Manual) Lymphocytes % (Manual) Seg Neutrophils # Seg Neutrophils # Man Lymphocytes # (Manual) D-Dimer ABG pH POC ABG pO2 ABG pO2 ABG HCO3 ABG O2 Saturation ABG Base Excess ABG Oxyhemoglobin ABG Sodium ABG Chloride ABG Glucose Oxyhemoglobin Carboxyhemoglobin Sodium Potassium Chloride Carbon Dioxide BUN Creatinine Glucose POC Glucose 299 H 160 H Hemoglobin A1c Ferritin AST ALT Alkaline Phosphatase Lactate Dehydrogenase C-Reactive Protein Total Protein Albumin Arterial Blood Glucose Coronavirus (PCR) 05/30/21 05/30/21 05/30/21 05:55 08:04 11:13 WBC MCH MCHC RDW Lymph % (Auto) Lymph # (Auto) [place] # (Auto) Baso # (Auto) Seg Neutrophils % Seg Neuts % (Manual) Lymphocytes % (Manual) Seg Neutrophils # Seg Neutrophils # Man Lymphocytes # (Manual) D-Dimer ABG pH POC ABG pO2 ABG pO2 ABG HCO3 ABG O2 Saturation ABG Base Excess ABG Oxyhemoglobin ABG Sodium ABG Chloride ABG Glucose Oxyhemoglobin Carboxyhemoglobin Sodium Potassium Chloride Carbon Dioxide BUN 19 H Creatinine 0.2 L Glucose 209 H POC Glucose 157 H 275 H Hemoglobin A1c Ferritin AST ALT Alkaline Phosphatase Lactate Dehydrogenase C-Reactive Protein Total Protein Albumin Arterial Blood Glucose Coronavirus (PCR) 05/30/21 05/30/21 05/31/21 17:08 22:12 07:36 WBC MCH MCHC RDW Lymph % (Auto) Lymph # (Auto) [place] # (Auto) Baso # (Auto) Seg Neutrophils % Seg Neuts % (Manual) Lymphocytes % (Manual) Seg Neutrophils # Seg Neutrophils # Man Lymphocytes # (Manual) D-Dimer ABG pH POC ABG pO2 ABG pO2 ABG HCO3 ABG O2 Saturation ABG Base Excess ABG Oxyhemoglobin ABG Sodium ABG Chloride ABG Glucose Oxyhemoglobin Carboxyhemoglobin Sodium Potassium Chloride Carbon Dioxide BUN Creatinine Glucose POC Glucose 154 H 275 H 138 H Hemoglobin A1c Ferritin AST ALT Alkaline Phosphatase Lactate Dehydrogenase C-Reactive Protein Total Protein Albumin Arterial Blood Glucose Coronavirus (PCR) 05/31/21 05/31/21 05/31/21 11:17 16:55 21:25 WBC MCH MCHC RDW Lymph % (Auto) Lymph # (Auto) [place] # (Auto) Baso # (Auto) Seg Neutrophils % Seg Neuts % (Manual) Lymphocytes % (Manual) Seg Neutrophils # Seg Neutrophils # Man Lymphocytes # (Manual) D-Dimer ABG pH POC ABG pO2 ABG pO2 ABG HCO3 ABG O2 Saturation ABG Base Excess ABG Oxyhemoglobin ABG Sodium ABG Chloride ABG Glucose Oxyhemoglobin Carboxyhemoglobin Sodium Potassium Chloride Carbon Dioxide BUN Creatinine Glucose POC Glucose 258 H 215 H 318 H Hemoglobin A1c Ferritin AST ALT Alkaline Phosphatase Lactate Dehydrogenase C-Reactive Protein Total Protein Albumin Arterial Blood Glucose Coronavirus (PCR) 06/01/21 06/01/21 06/01/21 07:23 11:38 16:52 WBC MCH MCHC RDW Lymph % (Auto) Lymph # (Auto) [place] # (Auto) Baso # (Auto) Seg Neutrophils % Seg Neuts % (Manual) Lymphocytes % (Manual) Seg Neutrophils # Seg Neutrophils # Man Lymphocytes # (Manual) D-Dimer ABG pH POC ABG pO2 ABG pO2 ABG HCO3 ABG O2 Saturation ABG Base Excess ABG Oxyhemoglobin ABG Sodium ABG Chloride ABG Glucose Oxyhemoglobin Carboxyhemoglobin Sodium Potassium Chloride Carbon Dioxide BUN Creatinine Glucose POC Glucose 157 H 259 H 150 H Hemoglobin A1c Ferritin AST ALT Alkaline Phosphatase Lactate Dehydrogenase C-Reactive Protein Total Protein Albumin Arterial Blood Glucose Coronavirus (PCR) 06/01/21 06/02/21 06/02/21 23:16 05:34 05:34 WBC MCH MCHC RDW 21.3 H Lymph % (Auto) 9.6 L Lymph # (Auto) 0.6 L [place] # (Auto) Baso # (Auto) Seg Neutrophils % 86.2 H Seg Neuts % (Manual) Lymphocytes % (Manual) Seg Neutrophils # Seg Neutrophils # Man Lymphocytes # (Manual) D-Dimer ABG pH POC ABG pO2 ABG pO2 ABG HCO3 ABG O2 Saturation ABG Base Excess ABG Oxyhemoglobin ABG Sodium ABG Chloride ABG Glucose Oxyhemoglobin Carboxyhemoglobin Sodium 136 L Potassium Chloride Carbon Dioxide BUN Creatinine 0.2 L Glucose 186 H POC Glucose 247 H Hemoglobin A1c Ferritin AST ALT 69 H Alkaline Phosphatase Lactate Dehydrogenase C-Reactive Protein Total Protein 6.1 L Albumin 3.2 L Arterial Blood Glucose Coronavirus (PCR) 06/02/21 06/02/21 06/02/21 11:25 18:23 21:32 WBC MCH MCHC RDW Lymph % (Auto) Lymph # (Auto) [place] # (Auto) Baso # (Auto) Seg Neutrophils % Seg Neuts % (Manual) Lymphocytes % (Manual) Seg Neutrophils # Seg Neutrophils # Man Lymphocytes # (Manual) D-Dimer ABG pH POC ABG pO2 ABG pO2 ABG HCO3 ABG O2 Saturation ABG Base Excess ABG Oxyhemoglobin ABG Sodium ABG Chloride ABG Glucose Oxyhemoglobin Carboxyhemoglobin Sodium Potassium Chloride Carbon Dioxide BUN Creatinine Glucose POC Glucose 157 H 299 H 246 H Hemoglobin A1c Ferritin AST ALT Alkaline Phosphatase Lactate Dehydrogenase C-Reactive Protein Total Protein Albumin Arterial Blood Glucose Coronavirus (PCR) 06/03/21 06/03/21 06/03/21 08:12 12:21 17:31 WBC MCH MCHC RDW Lymph % (Auto) Lymph # (Auto) [place] # (Auto) Baso # (Auto) Seg Neutrophils % Seg Neuts % (Manual) Lymphocytes % (Manual) Seg Neutrophils # Seg Neutrophils # Man Lymphocytes # (Manual) D-Dimer ABG pH POC ABG pO2 ABG pO2 ABG HCO3 ABG O2 Saturation ABG Base Excess ABG Oxyhemoglobin ABG Sodium ABG Chloride ABG Glucose Oxyhemoglobin Carboxyhemoglobin Sodium Potassium Chloride Carbon Dioxide BUN Creatinine Glucose POC Glucose 153 H 302 H 252 H Hemoglobin A1c Ferritin AST ALT Alkaline Phosphatase Lactate Dehydrogenase C-Reactive Protein Total Protein Albumin Arterial Blood Glucose Coronavirus (PCR) 06/03/21 06/04/21 06/04/21 22:08 11:12 16:01 WBC MCH MCHC RDW Lymph % (Auto) Lymph # (Auto) [place] # (Auto) Baso # (Auto) Seg Neutrophils % Seg Neuts % (Manual) Lymphocytes % (Manual) Seg Neutrophils # Seg Neutrophils # Man Lymphocytes # (Manual) D-Dimer ABG pH POC ABG pO2 ABG pO2 ABG HCO3 ABG O2 Saturation ABG Base Excess ABG Oxyhemoglobin ABG Sodium ABG Chloride ABG Glucose Oxyhemoglobin Carboxyhemoglobin Sodium Potassium Chloride Carbon Dioxide BUN Creatinine Glucose POC Glucose 224 H 259 H 238 H Hemoglobin A1c Ferritin AST ALT Alkaline Phosphatase Lactate Dehydrogenase C-Reactive Protein Total Protein Albumin Arterial Blood Glucose Coronavirus (PCR) 06/04/21 06/05/21 06/05/21 21:26 05:26 05:26 WBC MCH MCHC RDW Lymph % (Auto) Lymph # (Auto) [place] # (Auto) Baso # (Auto) Seg Neutrophils % Seg Neuts % (Manual) Lymphocytes % (Manual) Seg Neutrophils # Seg Neutrophils # Man Lymphocytes # (Manual) D-Dimer 488.49 H ABG pH POC ABG pO2 ABG pO2 ABG HCO3 ABG O2 Saturation ABG Base Excess ABG Oxyhemoglobin ABG Sodium ABG Chloride ABG Glucose Oxyhemoglobin Carboxyhemoglobin Sodium Potassium Chloride Carbon Dioxide BUN Creatinine 0.2 L Glucose 198 H POC Glucose 257 H Hemoglobin A1c Ferritin AST ALT Alkaline Phosphatase Lactate Dehydrogenase 475 H C-Reactive Protein Total Protein Albumin Arterial Blood Glucose Coronavirus (PCR) 06/05/21 06/05/21 06/05/21 07:20 08:30 11:00 WBC MCH MCHC RDW Lymph % (Auto) Lymph # (Auto) [place] # (Auto) Baso # (Auto) Seg Neutrophils % Seg Neuts % (Manual) Lymphocytes % (Manual) Seg Neutrophils # Seg Neutrophils # Man Lymphocytes # (Manual) D-Dimer ABG pH POC ABG pO2 ABG pO2 ABG HCO3 ABG O2 Saturation ABG Base Excess ABG Oxyhemoglobin ABG Sodium ABG Chloride ABG Glucose Oxyhemoglobin Carboxyhemoglobin Sodium Potassium Chloride Carbon Dioxide BUN Creatinine Glucose POC Glucose 146 H 246 H Hemoglobin A1c Ferritin AST ALT Alkaline Phosphatase Lactate Dehydrogenase C-Reactive Protein Total Protein Albumin Arterial Blood Glucose Coronavirus (PCR) Positive A 06/05/21 06/05/21 06/06/21 16:50 22:30 07:57 WBC MCH MCHC RDW Lymph % (Auto) Lymph # (Auto) [place] # (Auto) Baso # (Auto) Seg Neutrophils % Seg Neuts % (Manual) Lymphocytes % (Manual) Seg Neutrophils # Seg Neutrophils # Man Lymphocytes # (Manual) D-Dimer ABG pH POC ABG pO2 ABG pO2 ABG HCO3 ABG O2 Saturation ABG Base Excess ABG Oxyhemoglobin ABG Sodium ABG Chloride ABG Glucose Oxyhemoglobin Carboxyhemoglobin Sodium Potassium Chloride Carbon Dioxide BUN Creatinine Glucose POC Glucose 240 H 174 H 120 H Hemoglobin A1c Ferritin AST ALT Alkaline Phosphatase Lactate Dehydrogenase C-Reactive Protein Total Protein Albumin Arterial Blood Glucose Coronavirus (PCR) 06/06/21 06/06/21 06/06/21 11:14 16:50 21:11 WBC MCH MCHC RDW Lymph % (Auto) Lymph # (Auto) [place] # (Auto) Baso # (Auto) Seg Neutrophils % Seg Neuts % (Manual) Lymphocytes % (Manual) Seg Neutrophils # Seg Neutrophils # Man Lymphocytes # (Manual) D-Dimer ABG pH POC ABG pO2 ABG pO2 ABG HCO3 ABG O2 Saturation ABG Base Excess ABG Oxyhemoglobin ABG Sodium ABG Chloride ABG Glucose Oxyhemoglobin Carboxyhemoglobin Sodium Potassium Chloride Carbon Dioxide BUN Creatinine Glucose POC Glucose 267 H 218 H 124 H Hemoglobin A1c Ferritin AST ALT Alkaline Phosphatase Lactate Dehydrogenase C-Reactive Protein Total Protein Albumin Arterial Blood Glucose Coronavirus (PCR) 06/07/21 06/07/21 06/08/21 11:58 15:59 07:59 WBC MCH MCHC RDW Lymph % (Auto) Lymph # (Auto) [place] # (Auto) Baso # (Auto) Seg Neutrophils % Seg Neuts % (Manual) Lymphocytes % (Manual) Seg Neutrophils # Seg Neutrophils # Man Lymphocytes # (Manual) D-Dimer ABG pH POC ABG pO2 ABG pO2 ABG HCO3 ABG O2 Saturation ABG Base Excess ABG Oxyhemoglobin ABG Sodium ABG Chloride ABG Glucose Oxyhemoglobin Carboxyhemoglobin Sodium Potassium Chloride Carbon Dioxide BUN Creatinine Glucose POC Glucose 219 H 208 H 192 H Hemoglobin A1c Ferritin AST ALT Alkaline Phosphatase Lactate Dehydrogenase C-Reactive Protein Total Protein Albumin Arterial Blood Glucose Coronavirus (PCR) 06/08/21 06/08/21 06/09/21 11:26 23:28 07:33 WBC MCH MCHC RDW Lymph % (Auto) Lymph # (Auto) [place] # (Auto) Baso # (Auto) Seg Neutrophils % Seg Neuts % (Manual) Lymphocytes % (Manual) Seg Neutrophils # Seg Neutrophils # Man Lymphocytes # (Manual) D-Dimer ABG pH POC ABG pO2 ABG pO2 ABG HCO3 ABG O2 Saturation ABG Base Excess ABG Oxyhemoglobin ABG Sodium ABG Chloride ABG Glucose Oxyhemoglobin Carboxyhemoglobin Sodium Potassium Chloride Carbon Dioxide BUN Creatinine Glucose POC Glucose 307 H 138 H 145 H Hemoglobin A1c Ferritin AST ALT Alkaline Phosphatase Lactate Dehydrogenase C-Reactive Protein Total Protein Albumin Arterial Blood Glucose Coronavirus (PCR) 06/09/21 06/09/21 06/09/21 11:01 15:47 21:43 WBC MCH MCHC RDW Lymph % (Auto) Lymph # (Auto) [place] # (Auto) Baso # (Auto) Seg Neutrophils % Seg Neuts % (Manual) Lymphocytes % (Manual) Seg Neutrophils # Seg Neutrophils # Man Lymphocytes # (Manual) D-Dimer ABG pH POC ABG pO2 ABG pO2 ABG HCO3 ABG O2 Saturation ABG Base Excess ABG Oxyhemoglobin ABG Sodium ABG Chloride ABG Glucose Oxyhemoglobin Carboxyhemoglobin Sodium Potassium Chloride Carbon Dioxide BUN Creatinine Glucose POC Glucose 266 H 305 H 223 H Hemoglobin A1c Ferritin AST ALT Alkaline Phosphatase Lactate Dehydrogenase C-Reactive Protein Total Protein Albumin Arterial Blood Glucose Coronavirus (PCR) 09/27/21 09/27/21 09/27/21 08:27 12:10 17:45 WBC MCH MCHC RDW Lymph % (Auto) Lymph # (Auto) [place] # (Auto) Baso # (Auto) Seg Neutrophils % Seg Neuts % (Manual) Lymphocytes % (Manual) Seg Neutrophils # Seg Neutrophils # Man Lymphocytes # (Manual) D-Dimer ABG pH POC ABG pO2 ABG pO2 ABG HCO3 ABG O2 Saturation ABG Base Excess ABG Oxyhemoglobin ABG Sodium ABG Chloride ABG Glucose Oxyhemoglobin Carboxyhemoglobin Sodium Potassium Chloride Carbon Dioxide BUN Creatinine Glucose POC Glucose 174 H 306 H 210 H Hemoglobin A1c Ferritin AST ALT Alkaline Phosphatase Lactate Dehydrogenase C-Reactive Protein Total Protein Albumin Arterial Blood Glucose Coronavirus (PCR) 06/10/21 06/11/21 06/11/21 21:45 09:38 09:38 WBC MCH MCHC RDW 20.9 H Lymph % (Auto) Lymph # (Auto) [place] # (Auto) Baso # (Auto) Seg Neutrophils % Seg Neuts % (Manual) Lymphocytes % (Manual) Seg Neutrophils # Seg Neutrophils # Man Lymphocytes # (Manual) D-Dimer ABG pH POC ABG pO2 ABG pO2 ABG HCO3 ABG O2 Saturation ABG Base Excess ABG Oxyhemoglobin ABG Sodium ABG Chloride ABG Glucose Oxyhemoglobin Carboxyhemoglobin Sodium 135 L Potassium Chloride 90.8 L Carbon Dioxide 36 H BUN 29 H Creatinine 0.2 L Glucose 258 H POC Glucose 262 H Hemoglobin A1c Ferritin AST ALT Alkaline Phosphatase Lactate Dehydrogenase C-Reactive Protein Total Protein Albumin Arterial Blood Glucose Coronavirus (PCR) 06/11/21 06/11/21 06/11/21 11:20 15:49 22:57 WBC MCH MCHC RDW Lymph % (Auto) Lymph # (Auto) [place] # (Auto) Baso # (Auto) Seg Neutrophils % Seg Neuts % (Manual) Lymphocytes % (Manual) Seg Neutrophils # Seg Neutrophils # Man Lymphocytes # (Manual) D-Dimer ABG pH POC ABG pO2 ABG pO2 ABG HCO3 ABG O2 Saturation ABG Base Excess ABG Oxyhemoglobin ABG Sodium ABG Chloride ABG Glucose Oxyhemoglobin Carboxyhemoglobin Sodium Potassium Chloride Carbon Dioxide BUN Creatinine Glucose POC Glucose 269 H 206 H 211 H Hemoglobin A1c Ferritin AST ALT Alkaline Phosphatase Lactate Dehydrogenase C-Reactive Protein Total Protein Albumin Arterial Blood Glucose Coronavirus (PCR) 06/12/21 06/12/21 06/12/21 08:07 11:24 18:08 WBC MCH MCHC RDW Lymph % (Auto) Lymph # (Auto) [place] # (Auto) Baso # (Auto) Seg Neutrophils % Seg Neuts % (Manual) Lymphocytes % (Manual) Seg Neutrophils # Seg Neutrophils # Man Lymphocytes # (Manual) D-Dimer ABG pH POC ABG pO2 ABG pO2 ABG HCO3 ABG O2 Saturation ABG Base Excess ABG Oxyhemoglobin ABG Sodium ABG Chloride ABG Glucose Oxyhemoglobin Carboxyhemoglobin Sodium Potassium Chloride Carbon Dioxide BUN Creatinine Glucose POC Glucose 149 H 270 H 166 H Hemoglobin A1c Ferritin AST ALT Alkaline Phosphatase Lactate Dehydrogenase C-Reactive Protein Total Protein Albumin Arterial Blood Glucose Coronavirus (PCR) 06/12/21 06/13/21 06/13/21 20:22 07:50 11:18 WBC MCH MCHC RDW Lymph % (Auto) Lymph # (Auto) [place] # (Auto) Baso # (Auto) Seg Neutrophils % Seg Neuts % (Manual) Lymphocytes % (Manual) Seg Neutrophils # Seg Neutrophils # Man Lymphocytes # (Manual) D-Dimer ABG pH POC ABG pO2 ABG pO2 ABG HCO3 ABG O2 Saturation ABG Base Excess ABG Oxyhemoglobin ABG Sodium ABG Chloride ABG Glucose Oxyhemoglobin Carboxyhemoglobin Sodium Potassium Chloride Carbon Dioxide BUN Creatinine Glucose POC Glucose 155 H 163 H 293 H Hemoglobin A1c Ferritin AST ALT Alkaline Phosphatase Lactate Dehydrogenase C-Reactive Protein Total Protein Albumin Arterial Blood Glucose Coronavirus (PCR) 06/13/21 06/13/21 06/14/21 16:41 21:00 07:41 WBC MCH MCHC RDW Lymph % (Auto) Lymph # (Auto) [place] # (Auto) Baso # (Auto) Seg Neutrophils % Seg Neuts % (Manual) Lymphocytes % (Manual) Seg Neutrophils # Seg Neutrophils # Man Lymphocytes # (Manual) D-Dimer ABG pH POC ABG pO2 ABG pO2 ABG HCO3 ABG O2 Saturation ABG Base Excess ABG Oxyhemoglobin ABG Sodium ABG Chloride ABG Glucose Oxyhemoglobin Carboxyhemoglobin Sodium Potassium Chloride Carbon Dioxide BUN Creatinine Glucose POC Glucose 232 H 183 H 52 L Hemoglobin A1c Ferritin AST ALT Alkaline Phosphatase Lactate Dehydrogenase C-Reactive Protein Total Protein Albumin Arterial Blood Glucose Coronavirus (PCR) 06/14/21 06/14/21 06/14/21 11:44 17:44 21:44 WBC MCH MCHC RDW Lymph % (Auto) Lymph # (Auto) [place] # (Auto) Baso # (Auto) Seg Neutrophils % Seg Neuts % (Manual) Lymphocytes % (Manual) Seg Neutrophils # Seg Neutrophils # Man Lymphocytes # (Manual) D-Dimer ABG pH POC ABG pO2 ABG pO2 ABG HCO3 ABG O2 Saturation ABG Base Excess ABG Oxyhemoglobin ABG Sodium ABG Chloride ABG Glucose Oxyhemoglobin Carboxyhemoglobin Sodium Potassium Chloride Carbon Dioxide BUN Creatinine Glucose POC Glucose 205 H 293 H 288 H Hemoglobin A1c Ferritin AST ALT Alkaline Phosphatase Lactate Dehydrogenase C-Reactive Protein Total Protein Albumin Arterial Blood Glucose Coronavirus (PCR) 06/15/21 06/15/21 06/15/21 08:00 08:00 11:40 WBC MCH 33 H MCHC 35 H RDW 20.3 H Lymph % (Auto) Lymph # (Auto) [place] # (Auto) Baso # (Auto) Seg Neutrophils % Seg Neuts % (Manual) Lymphocytes % (Manual) Seg Neutrophils # Seg Neutrophils # Man Lymphocytes # (Manual) D-Dimer ABG pH POC ABG pO2 ABG pO2 ABG HCO3 ABG O2 Saturation ABG Base Excess ABG Oxyhemoglobin ABG Sodium ABG Chloride ABG Glucose Oxyhemoglobin Carboxyhemoglobin Sodium Potassium 3.2 L Chloride 95.3 L Carbon Dioxide 32 H BUN 23 H Creatinine 0.2 L Glucose 103 H POC Glucose 204 H Hemoglobin A1c Ferritin AST ALT Alkaline Phosphatase Lactate Dehydrogenase C-Reactive Protein Total Protein Albumin Arterial Blood Glucose Coronavirus (PCR) 06/15/21 06/15/21 06/16/21 16:17 22:00 11:43 WBC MCH MCHC RDW Lymph % (Auto) Lymph # (Auto) [place] # (Auto) Baso # (Auto) Seg Neutrophils % Seg Neuts % (Manual) Lymphocytes % (Manual) Seg Neutrophils # Seg Neutrophils # Man Lymphocytes # (Manual) D-Dimer ABG pH POC ABG pO2 ABG pO2 ABG HCO3 ABG O2 Saturation ABG Base Excess ABG Oxyhemoglobin ABG Sodium ABG Chloride ABG Glucose Oxyhemoglobin Carboxyhemoglobin Sodium Potassium Chloride Carbon Dioxide BUN Creatinine Glucose POC Glucose 295 H 233 H 201 H Hemoglobin A1c Ferritin AST ALT Alkaline Phosphatase Lactate Dehydrogenase C-Reactive Protein Total Protein Albumin Arterial Blood Glucose Coronavirus (PCR) 06/16/21 06/16/21 06/17/21 17:21 21:27 07:12 WBC MCH MCHC RDW Lymph % (Auto) Lymph # (Auto) [place] # (Auto) Baso # (Auto) Seg Neutrophils % Seg Neuts % (Manual) Lymphocytes % (Manual) Seg Neutrophils # Seg Neutrophils # Man Lymphocytes # (Manual) D-Dimer ABG pH POC ABG pO2 ABG pO2 ABG HCO3 ABG O2 Saturation ABG Base Excess ABG Oxyhemoglobin ABG Sodium ABG Chloride ABG Glucose Oxyhemoglobin Carboxyhemoglobin Sodium Potassium Chloride Carbon Dioxide BUN Creatinine Glucose POC Glucose 299 H 290 H 67 L Hemoglobin A1c Ferritin AST ALT Alkaline Phosphatase Lactate Dehydrogenase C-Reactive Protein Total Protein Albumin Arterial Blood Glucose Coronavirus (PCR) 06/17/21 06/17/21 06/17/21 11:53 17:02 22:25 WBC MCH MCHC RDW Lymph % (Auto) Lymph # (Auto) [place] # (Auto) Baso # (Auto) Seg Neutrophils % Seg Neuts % (Manual) Lymphocytes % (Manual) Seg Neutrophils # Seg Neutrophils # Man Lymphocytes # (Manual) D-Dimer ABG pH POC ABG pO2 ABG pO2 ABG HCO3 ABG O2 Saturation ABG Base Excess ABG Oxyhemoglobin ABG Sodium ABG Chloride ABG Glucose Oxyhemoglobin Carboxyhemoglobin Sodium Potassium Chloride Carbon Dioxide BUN Creatinine Glucose POC Glucose 199 H 362 H 235 H Hemoglobin A1c Ferritin AST ALT Alkaline Phosphatase Lactate Dehydrogenase C-Reactive Protein Total Protein Albumin Arterial Blood Glucose Coronavirus (PCR) 06/18/21 06/18/21 06/18/21 08:00 11:48 16:40 WBC MCH MCHC RDW Lymph % (Auto) Lymph # (Auto) [place] # (Auto) Baso # (Auto) Seg Neutrophils % Seg Neuts % (Manual) Lymphocytes % (Manual) Seg Neutrophils # Seg Neutrophils # Man Lymphocytes # (Manual) D-Dimer ABG pH POC ABG pO2 ABG pO2 ABG HCO3 ABG O2 Saturation ABG Base Excess ABG Oxyhemoglobin ABG Sodium ABG Chloride ABG Glucose Oxyhemoglobin Carboxyhemoglobin Sodium Potassium Chloride Carbon Dioxide BUN Creatinine Glucose POC Glucose 62 L 211 H 305 H Hemoglobin A1c Ferritin AST ALT Alkaline Phosphatase Lactate Dehydrogenase C-Reactive Protein Total Protein Albumin Arterial Blood Glucose Coronavirus (PCR) 06/18/21 06/19/21 06/19/21 21:26 07:27 11:32 WBC MCH MCHC RDW Lymph % (Auto) Lymph # (Auto) [place] # (Auto) Baso # (Auto) Seg Neutrophils % Seg Neuts % (Manual) Lymphocytes % (Manual) Seg Neutrophils # Seg Neutrophils # Man Lymphocytes # (Manual) D-Dimer ABG pH POC ABG pO2 ABG pO2 ABG HCO3 ABG O2 Saturation ABG Base Excess ABG Oxyhemoglobin ABG Sodium ABG Chloride ABG Glucose Oxyhemoglobin Carboxyhemoglobin Sodium Potassium Chloride Carbon Dioxide BUN Creatinine Glucose POC Glucose 149 H 60 L 208 H Hemoglobin A1c Ferritin AST ALT Alkaline Phosphatase Lactate Dehydrogenase C-Reactive Protein Total Protein Albumin Arterial Blood Glucose Coronavirus (PCR) 06/19/21 06/19/21 06/20/21 16:06 22:28 07:48 WBC MCH MCHC RDW Lymph % (Auto) Lymph # (Auto) [place] # (Auto) Baso # (Auto) Seg Neutrophils % Seg Neuts % (Manual) Lymphocytes % (Manual) Seg Neutrophils # Seg Neutrophils # Man Lymphocytes # (Manual) D-Dimer ABG pH POC ABG pO2 ABG pO2 ABG HCO3 ABG O2 Saturation ABG Base Excess ABG Oxyhemoglobin ABG Sodium ABG Chloride ABG Glucose Oxyhemoglobin Carboxyhemoglobin Sodium Potassium Chloride Carbon Dioxide BUN Creatinine Glucose POC Glucose 266 H 166 H 58 L Hemoglobin A1c Ferritin AST ALT Alkaline Phosphatase Lactate Dehydrogenase C-Reactive Protein Total Protein Albumin Arterial Blood Glucose Coronavirus (PCR) 06/20/21 06/20/21 06/20/21 09:09 11:04 16:01 WBC MCH MCHC RDW Lymph % (Auto) Lymph # (Auto) [place] # (Auto) Baso # (Auto) Seg Neutrophils % Seg Neuts % (Manual) Lymphocytes % (Manual) Seg Neutrophils # Seg Neutrophils # Man Lymphocytes # (Manual) D-Dimer ABG pH POC ABG pO2 ABG pO2 ABG HCO3 ABG O2 Saturation ABG Base Excess ABG Oxyhemoglobin ABG Sodium ABG Chloride ABG Glucose Oxyhemoglobin Carboxyhemoglobin Sodium Potassium Chloride Carbon Dioxide BUN Creatinine Glucose POC Glucose 146 H 225 H 330 H Hemoglobin A1c Ferritin AST ALT Alkaline Phosphatase Lactate Dehydrogenase C-Reactive Protein Total Protein Albumin Arterial Blood Glucose Coronavirus (PCR) 06/20/21 06/21/21 06/21/21 20:46 06:45 06:45 WBC MCH MCHC RDW 20.0 H Lymph % (Auto) Lymph # (Auto) [place] # (Auto) Baso # (Auto) Seg Neutrophils % Seg Neuts % (Manual) Lymphocytes % (Manual) Seg Neutrophils # Seg Neutrophils # Man Lymphocytes # (Manual) D-Dimer ABG pH POC ABG pO2 ABG pO2 ABG HCO3 ABG O2 Saturation ABG Base Excess ABG Oxyhemoglobin ABG Sodium ABG Chloride ABG Glucose Oxyhemoglobin Carboxyhemoglobin Sodium Potassium 2.9 L* Chloride 95.0 L Carbon Dioxide 31 H BUN 23 H Creatinine 0.2 L Glucose 45 L POC Glucose 215 H Hemoglobin A1c Ferritin AST ALT Alkaline Phosphatase Lactate Dehydrogenase C-Reactive Protein Total Protein Albumin Arterial Blood Glucose Coronavirus (PCR) 06/21/21 06/21/21 06/21/21 07:38 09:06 12:40 WBC MCH MCHC RDW Lymph % (Auto) Lymph # (Auto) [place] # (Auto) Baso # (Auto) Seg Neutrophils % Seg Neuts % (Manual) Lymphocytes % (Manual) Seg Neutrophils # Seg Neutrophils # Man Lymphocytes # (Manual) D-Dimer ABG pH POC ABG pO2 ABG pO2 ABG HCO3 ABG O2 Saturation ABG Base Excess ABG Oxyhemoglobin ABG Sodium ABG Chloride ABG Glucose Oxyhemoglobin Carboxyhemoglobin Sodium Potassium Chloride Carbon Dioxide BUN Creatinine Glucose POC Glucose 50 L 196 H 205 H Hemoglobin A1c Ferritin AST ALT Alkaline Phosphatase Lactate Dehydrogenase C-Reactive Protein Total Protein Albumin Arterial Blood Glucose Coronavirus (PCR) 06/21/21 06/22/21 06/22/21 21:36 06:25 07:15 WBC MCH MCHC RDW Lymph % (Auto) Lymph # (Auto) [place] # (Auto) Baso # (Auto) Seg Neutrophils % Seg Neuts % (Manual) Lymphocytes % (Manual) Seg Neutrophils # Seg Neutrophils # Man Lymphocytes # (Manual) D-Dimer ABG pH POC ABG pO2 ABG pO2 ABG HCO3 ABG O2 Saturation ABG Base Excess ABG Oxyhemoglobin ABG Sodium ABG Chloride ABG Glucose Oxyhemoglobin Carboxyhemoglobin Sodium Potassium Chloride Carbon Dioxide BUN 20 H Creatinine 0.2 L Glucose POC Glucose 245 H 66 L Hemoglobin A1c Ferritin AST ALT Alkaline Phosphatase Lactate Dehydrogenase C-Reactive Protein Total Protein Albumin Arterial Blood Glucose Coronavirus (PCR) 06/22/21 06/22/21 06/22/21 11:03 16:07 22:03 WBC MCH MCHC RDW Lymph % (Auto) Lymph # (Auto) [place] # (Auto) Baso # (Auto) Seg Neutrophils % Seg Neuts % (Manual) Lymphocytes % (Manual) Seg Neutrophils # Seg Neutrophils # Man Lymphocytes # (Manual) D-Dimer ABG pH POC ABG pO2 ABG pO2 ABG HCO3 ABG O2 Saturation ABG Base Excess ABG Oxyhemoglobin ABG Sodium ABG Chloride ABG Glucose Oxyhemoglobin Carboxyhemoglobin Sodium Potassium Chloride Carbon Dioxide BUN Creatinine Glucose POC Glucose 184 H 326 H 138 H Hemoglobin A1c Ferritin AST ALT Alkaline Phosphatase Lactate Dehydrogenase C-Reactive Protein Total Protein Albumin Arterial Blood Glucose Coronavirus (PCR) 06/23/21 06/23/21 06/23/21 07:19 10:34 16:35 WBC MCH MCHC RDW Lymph % (Auto) Lymph # (Auto) [place] # (Auto) Baso # (Auto) Seg Neutrophils % Seg Neuts % (Manual) Lymphocytes % (Manual) Seg Neutrophils # Seg Neutrophils # Man Lymphocytes # (Manual) D-Dimer ABG pH POC ABG pO2 ABG pO2 ABG HCO3 ABG O2 Saturation ABG Base Excess ABG Oxyhemoglobin ABG Sodium ABG Chloride ABG Glucose Oxyhemoglobin Carboxyhemoglobin Sodium Potassium Chloride Carbon Dioxide BUN Creatinine Glucose POC Glucose 69 L 218 H 326 H Hemoglobin A1c Ferritin AST ALT Alkaline Phosphatase Lactate Dehydrogenase C-Reactive Protein Total Protein Albumin Arterial Blood Glucose Coronavirus (PCR) 06/23/21 06/24/21 06/24/21 22:44 11:41 16:54 WBC MCH MCHC RDW Lymph % (Auto) Lymph # (Auto) [place] # (Auto) Baso # (Auto) Seg Neutrophils % Seg Neuts % (Manual) Lymphocytes % (Manual) Seg Neutrophils # Seg Neutrophils # Man Lymphocytes # (Manual) D-Dimer ABG pH POC ABG pO2 ABG pO2 ABG HCO3 ABG O2 Saturation ABG Base Excess ABG Oxyhemoglobin ABG Sodium ABG Chloride ABG Glucose Oxyhemoglobin Carboxyhemoglobin Sodium Potassium Chloride Carbon Dioxide BUN Creatinine Glucose POC Glucose 252 H 217 H 357 H Hemoglobin A1c Ferritin AST ALT Alkaline Phosphatase Lactate Dehydrogenase C-Reactive Protein Total Protein Albumin Arterial Blood Glucose Coronavirus (PCR) 06/24/21 06/25/21 06/25/21 20:40 11:51 16:47 WBC MCH MCHC RDW Lymph % (Auto) Lymph # (Auto) [place] # (Auto) Baso # (Auto) Seg Neutrophils % Seg Neuts % (Manual) Lymphocytes % (Manual) Seg Neutrophils # Seg Neutrophils # Man Lymphocytes # (Manual) D-Dimer ABG pH POC ABG pO2 ABG pO2 ABG HCO3 ABG O2 Saturation ABG Base Excess ABG Oxyhemoglobin ABG Sodium ABG Chloride ABG Glucose Oxyhemoglobin Carboxyhemoglobin Sodium Potassium Chloride Carbon Dioxide BUN Creatinine Glucose POC Glucose 239 H 182 H 229 H Hemoglobin A1c Ferritin AST ALT Alkaline Phosphatase Lactate Dehydrogenase C-Reactive Protein Total Protein Albumin Arterial Blood Glucose Coronavirus (PCR) 06/25/21 06/26/21 06/26/21 22:27 07:20 12:19 WBC MCH MCHC RDW Lymph % (Auto) Lymph # (Auto) [place] # (Auto) Baso # (Auto) Seg Neutrophils % Seg Neuts % (Manual) Lymphocytes % (Manual) Seg Neutrophils # Seg Neutrophils # Man Lymphocytes # (Manual) D-Dimer ABG pH POC ABG pO2 ABG pO2 ABG HCO3 ABG O2 Saturation ABG Base Excess ABG Oxyhemoglobin ABG Sodium ABG Chloride ABG Glucose Oxyhemoglobin Carboxyhemoglobin Sodium Potassium 3.2 L D Chloride Carbon Dioxide BUN 20 H Creatinine 0.3 L Glucose POC Glucose 209 H 273 H Hemoglobin A1c Ferritin AST ALT 77 H Alkaline Phosphatase Lactate Dehydrogenase C-Reactive Protein Total Protein Albumin 3.3 L Arterial Blood Glucose Coronavirus (PCR) 06/26/21 06/26/21 06/27/21 16:52 20:55 07:14 WBC MCH MCHC RDW Lymph % (Auto) Lymph # (Auto) [place] # (Auto) Baso # (Auto) Seg Neutrophils % Seg Neuts % (Manual) Lymphocytes % (Manual) Seg Neutrophils # Seg Neutrophils # Man Lymphocytes # (Manual) D-Dimer ABG pH POC ABG pO2 ABG pO2 ABG HCO3 ABG O2 Saturation ABG Base Excess ABG Oxyhemoglobin ABG Sodium ABG Chloride ABG Glucose Oxyhemoglobin Carboxyhemoglobin Sodium Potassium Chloride Carbon Dioxide 31 H BUN 19 H Creatinine 0.2 L Glucose 112 H POC Glucose 326 H 220 H Hemoglobin A1c Ferritin AST ALT Alkaline Phosphatase Lactate Dehydrogenase C-Reactive Protein Total Protein Albumin Arterial Blood Glucose Coronavirus (PCR) 06/27/21 06/27/21 06/27/21 07:29 10:54 15:49 WBC MCH MCHC RDW Lymph % (Auto) Lymph # (Auto) [place] # (Auto) Baso # (Auto) Seg Neutrophils % Seg Neuts % (Manual) Lymphocytes % (Manual) Seg Neutrophils # Seg Neutrophils # Man Lymphocytes # (Manual) D-Dimer ABG pH POC ABG pO2 ABG pO2 ABG HCO3 ABG O2 Saturation ABG Base Excess ABG Oxyhemoglobin ABG Sodium ABG Chloride ABG Glucose Oxyhemoglobin Carboxyhemoglobin Sodium Potassium Chloride Carbon Dioxide BUN Creatinine Glucose POC Glucose 115 H 228 H 240 H Hemoglobin A1c Ferritin AST ALT Alkaline Phosphatase Lactate Dehydrogenase C-Reactive Protein Total Protein Albumin Arterial Blood Glucose Coronavirus (PCR) 06/28/21 06/28/21 06/28/21 05:43 05:43 07:13 WBC MCH 33 H MCHC RDW 19.8 H Lymph % (Auto) Lymph # (Auto) [place] # (Auto) Baso # (Auto) Seg Neutrophils % Seg Neuts % (Manual) Lymphocytes % (Manual) Seg Neutrophils # Seg Neutrophils # Man Lymphocytes # (Manual) D-Dimer ABG pH POC ABG pO2 ABG pO2 ABG HCO3 ABG O2 Saturation ABG Base Excess ABG Oxyhemoglobin ABG Sodium ABG Chloride ABG Glucose Oxyhemoglobin Carboxyhemoglobin Sodium Potassium 3.3 L Chloride Carbon Dioxide BUN 22 H Creatinine 0.2 L Glucose POC Glucose 69 L Hemoglobin A1c Ferritin AST ALT 63 H Alkaline Phosphatase Lactate Dehydrogenase C-Reactive Protein Total Protein Albumin 3.3 L Arterial Blood Glucose Coronavirus (PCR) 06/28/21 06/28/21 06/28/21 12:18 15:37 21:01 WBC MCH MCHC RDW Lymph % (Auto) Lymph # (Auto) [place] # (Auto) Baso # (Auto) Seg Neutrophils % Seg Neuts % (Manual) Lymphocytes % (Manual) Seg Neutrophils # Seg Neutrophils # Man Lymphocytes # (Manual) D-Dimer ABG pH POC ABG pO2 ABG pO2 ABG HCO3 ABG O2 Saturation ABG Base Excess ABG Oxyhemoglobin ABG Sodium ABG Chloride ABG Glucose Oxyhemoglobin Carboxyhemoglobin Sodium Potassium Chloride Carbon Dioxide BUN Creatinine Glucose POC Glucose 154 H 201 H 191 H Hemoglobin A1c Ferritin AST ALT Alkaline Phosphatase Lactate Dehydrogenase C-Reactive Protein Total Protein Albumin Arterial Blood Glucose Coronavirus (PCR) 06/29/21 06/29/21 06/29/21 11:55 15:47 21:06 WBC MCH MCHC RDW Lymph % (Auto) Lymph # (Auto) [place] # (Auto) Baso # (Auto) Seg Neutrophils % Seg Neuts % (Manual) Lymphocytes % (Manual) Seg Neutrophils # Seg Neutrophils # Man Lymphocytes # (Manual) D-Dimer ABG pH POC ABG pO2 ABG pO2 ABG HCO3 ABG O2 Saturation ABG Base Excess ABG Oxyhemoglobin ABG Sodium ABG Chloride ABG Glucose Oxyhemoglobin Carboxyhemoglobin Sodium Potassium Chloride Carbon Dioxide BUN Creatinine Glucose POC Glucose 238 H 249 H 155 H Hemoglobin A1c Ferritin AST ALT Alkaline Phosphatase Lactate Dehydrogenase C-Reactive Protein Total Protein Albumin Arterial Blood Glucose Coronavirus (PCR) 06/30/21 06/30/21 06/30/21 04:00 07:50 11:50 WBC MCH MCHC RDW Lymph % (Auto) Lymph # (Auto) [place] # (Auto) Baso # (Auto) Seg Neutrophils % Seg Neuts % (Manual) Lymphocytes % (Manual) Seg Neutrophils # Seg Neutrophils # Man Lymphocytes # (Manual) D-Dimer ABG pH POC ABG pO2 ABG pO2 ABG HCO3 ABG O2 Saturation ABG Base Excess ABG Oxyhemoglobin ABG Sodium ABG Chloride ABG Glucose Oxyhemoglobin Carboxyhemoglobin Sodium Potassium 3.5 L Chloride Carbon Dioxide BUN 18 H Creatinine 0.3 L Glucose 111 H POC Glucose 117 H 250 H Hemoglobin A1c Ferritin AST ALT Alkaline Phosphatase Lactate Dehydrogenase C-Reactive Protein Total Protein Albumin Arterial Blood Glucose Coronavirus (PCR) 06/30/21 06/30/21 07/01/21 16:05 21:02 07:26 WBC MCH MCHC RDW Lymph % (Auto) Lymph # (Auto) [place] # (Auto) Baso # (Auto) Seg Neutrophils % Seg Neuts % (Manual) Lymphocytes % (Manual) Seg Neutrophils # Seg Neutrophils # Man Lymphocytes # (Manual) D-Dimer ABG pH POC ABG pO2 ABG pO2 ABG HCO3 ABG O2 Saturation ABG Base Excess ABG Oxyhemoglobin ABG Sodium ABG Chloride ABG Glucose Oxyhemoglobin Carboxyhemoglobin Sodium Potassium Chloride Carbon Dioxide BUN Creatinine Glucose POC Glucose 250 H 217 H 111 H Hemoglobin A1c Ferritin AST ALT Alkaline Phosphatase Lactate Dehydrogenase C-Reactive Protein Total Protein Albumin Arterial Blood Glucose Coronavirus (PCR) 07/01/21 07/01/21 07/01/21 11:06 15:48 21:31 WBC MCH MCHC RDW Lymph % (Auto) Lymph # (Auto) [place] # (Auto) Baso # (Auto) Seg Neutrophils % Seg Neuts % (Manual) Lymphocytes % (Manual) Seg Neutrophils # Seg Neutrophils # Man Lymphocytes # (Manual) D-Dimer ABG pH POC ABG pO2 ABG pO2 ABG HCO3 ABG O2 Saturation ABG Base Excess ABG Oxyhemoglobin ABG Sodium ABG Chloride ABG Glucose Oxyhemoglobin Carboxyhemoglobin Sodium Potassium Chloride Carbon Dioxide BUN Creatinine Glucose POC Glucose 229 H 239 H 199 H Hemoglobin A1c Ferritin AST ALT Alkaline Phosphatase Lactate Dehydrogenase C-Reactive Protein Total Protein Albumin Arterial Blood Glucose Coronavirus (PCR) 07/02/21 07/02/21 07/02/21 11:50 16:44 21:49 WBC MCH MCHC RDW Lymph % (Auto) Lymph # (Auto) [place] # (Auto) Baso # (Auto) Seg Neutrophils % Seg Neuts % (Manual) Lymphocytes % (Manual) Seg Neutrophils # Seg Neutrophils # Man Lymphocytes # (Manual) D-Dimer ABG pH POC ABG pO2 ABG pO2 ABG HCO3 ABG O2 Saturation ABG Base Excess ABG Oxyhemoglobin ABG Sodium ABG Chloride ABG Glucose Oxyhemoglobin Carboxyhemoglobin Sodium Potassium Chloride Carbon Dioxide BUN Creatinine Glucose POC Glucose 230 H 203 H 197 H Hemoglobin A1c Ferritin AST ALT Alkaline Phosphatase Lactate Dehydrogenase C-Reactive Protein Total Protein Albumin Arterial Blood Glucose Coronavirus (PCR) 07/03/21 07/03/21 07/03/21 05:46 05:46 11:59 WBC MCH MCHC RDW 19.6 H Lymph % (Auto) Lymph # (Auto) [place] # (Auto) Baso # (Auto) Seg Neutrophils % Seg Neuts % (Manual) Lymphocytes % (Manual) Seg Neutrophils # Seg Neutrophils # Man Lymphocytes # (Manual) D-Dimer ABG pH POC ABG pO2 ABG pO2 ABG HCO3 ABG O2 Saturation ABG Base Excess ABG Oxyhemoglobin ABG Sodium ABG Chloride ABG Glucose Oxyhemoglobin Carboxyhemoglobin Sodium Potassium 3.2 L Chloride Carbon Dioxide BUN Creatinine 0.3 L Glucose POC Glucose 145 H Hemoglobin A1c Ferritin AST ALT Alkaline Phosphatase Lactate Dehydrogenase C-Reactive Protein Total Protein Albumin Arterial Blood Glucose Coronavirus (PCR) 07/03/21 07/03/21 07/04/21 16:40 22:00 06:35 WBC MCH MCHC RDW Lymph % (Auto) Lymph # (Auto) [place] # (Auto) Baso # (Auto) Seg Neutrophils % Seg Neuts % (Manual) Lymphocytes % (Manual) Seg Neutrophils # Seg Neutrophils # Man Lymphocytes # (Manual) D-Dimer ABG pH POC ABG pO2 ABG pO2 ABG HCO3 ABG O2 Saturation ABG Base Excess ABG Oxyhemoglobin ABG Sodium ABG Chloride ABG Glucose Oxyhemoglobin Carboxyhemoglobin Sodium Potassium Chloride Carbon Dioxide BUN Creatinine 0.3 L Glucose 118 H POC Glucose 176 H 127 H Hemoglobin A1c Ferritin AST ALT Alkaline Phosphatase Lactate Dehydrogenase C-Reactive Protein Total Protein Albumin Arterial Blood Glucose Coronavirus (PCR) 07/04/21 07/04/21 07/05/21 12:30 16:38 08:37 WBC MCH MCHC RDW Lymph % (Auto) Lymph # (Auto) [place] # (Auto) Baso # (Auto) Seg Neutrophils % Seg Neuts % (Manual) Lymphocytes % (Manual) Seg Neutrophils # Seg Neutrophils # Man Lymphocytes # (Manual) D-Dimer ABG pH POC ABG pO2 ABG pO2 ABG HCO3 ABG O2 Saturation ABG Base Excess ABG Oxyhemoglobin ABG Sodium ABG Chloride ABG Glucose Oxyhemoglobin Carboxyhemoglobin Sodium Potassium Chloride Carbon Dioxide BUN Creatinine Glucose POC Glucose 162 H 205 H 115 H Hemoglobin A1c Ferritin AST ALT Alkaline Phosphatase Lactate Dehydrogenase C-Reactive Protein Total Protein Albumin Arterial Blood Glucose Coronavirus (PCR) 07/05/21 07/05/21 07/05/21 10:57 16:42 21:14 WBC MCH MCHC RDW Lymph % (Auto) Lymph # (Auto) [place] # (Auto) Baso # (Auto) Seg Neutrophils % Seg Neuts % (Manual) Lymphocytes % (Manual) Seg Neutrophils # Seg Neutrophils # Man Lymphocytes # (Manual) D-Dimer ABG pH POC ABG pO2 ABG pO2 ABG HCO3 ABG O2 Saturation ABG Base Excess ABG Oxyhemoglobin ABG Sodium ABG Chloride ABG Glucose Oxyhemoglobin Carboxyhemoglobin Sodium Potassium Chloride Carbon Dioxide BUN Creatinine Glucose POC Glucose 151 H 184 H 130 H Hemoglobin A1c Ferritin AST ALT Alkaline Phosphatase Lactate Dehydrogenase C-Reactive Protein Total Protein Albumin Arterial Blood Glucose Coronavirus (PCR) 07/06/21 07/06/21 07/06/21 07:31 11:49 16:46 WBC MCH MCHC RDW Lymph % (Auto) Lymph # (Auto) [place] # (Auto) Baso # (Auto) Seg Neutrophils % Seg Neuts % (Manual) Lymphocytes % (Manual) Seg Neutrophils # Seg Neutrophils # Man Lymphocytes # (Manual) D-Dimer ABG pH POC ABG pO2 ABG pO2 ABG HCO3 ABG O2 Saturation ABG Base Excess ABG Oxyhemoglobin ABG Sodium ABG Chloride ABG Glucose Oxyhemoglobin Carboxyhemoglobin Sodium Potassium Chloride Carbon Dioxide BUN Creatinine Glucose POC Glucose 106 H 173 H 205 H Hemoglobin A1c Ferritin AST ALT Alkaline Phosphatase Lactate Dehydrogenase C-Reactive Protein Total Protein Albumin Arterial Blood Glucose Coronavirus (PCR) 07/06/21 07/07/21 07/07/21 21:38 06:00 06:00 WBC 16.1 H MCH MCHC RDW 18.8 H Lymph % (Auto) Lymph # (Auto) [place] # (Auto) 1.1 H Baso # (Auto) 0.2 H Seg Neutrophils % 74.9 H Seg Neuts % (Manual) Lymphocytes % (Manual) Seg Neutrophils # 12.1 H Seg Neutrophils # Man Lymphocytes # (Manual) D-Dimer ABG pH POC ABG pO2 ABG pO2 ABG HCO3 ABG O2 Saturation ABG Base Excess ABG Oxyhemoglobin ABG Sodium ABG Chloride ABG Glucose Oxyhemoglobin Carboxyhemoglobin Sodium Potassium 3.5 L D Chloride Carbon Dioxide BUN 6 L Creatinine < 0.2 L Glucose 106 H POC Glucose 120 H Hemoglobin A1c Ferritin AST ALT Alkaline Phosphatase Lactate Dehydrogenase C-Reactive Protein Total Protein Albumin Arterial Blood Glucose Coronavirus (PCR) 07/07/21 07/07/21 07/07/21 07:10 11:53 15:53 WBC MCH MCHC RDW Lymph % (Auto) Lymph # (Auto) [place] # (Auto) Baso # (Auto) Seg Neutrophils % Seg Neuts % (Manual) Lymphocytes % (Manual) Seg Neutrophils # Seg Neutrophils # Man Lymphocytes # (Manual) D-Dimer ABG pH POC ABG pO2 ABG pO2 ABG HCO3 ABG O2 Saturation ABG Base Excess ABG Oxyhemoglobin ABG Sodium ABG Chloride ABG Glucose Oxyhemoglobin Carboxyhemoglobin Sodium Potassium Chloride Carbon Dioxide BUN Creatinine Glucose POC Glucose 132 H 169 H 242 H Hemoglobin A1c Ferritin AST ALT Alkaline Phosphatase Lactate Dehydrogenase C-Reactive Protein Total Protein Albumin Arterial Blood Glucose Coronavirus (PCR) 07/07/21 07/08/21 07/08/21 21:41 08:09 12:20 WBC MCH MCHC RDW Lymph % (Auto) Lymph # (Auto) [place] # (Auto) Baso # (Auto) Seg Neutrophils % Seg Neuts % (Manual) Lymphocytes % (Manual) Seg Neutrophils # Seg Neutrophils # Man Lymphocytes # (Manual) D-Dimer ABG pH POC ABG pO2 ABG pO2 ABG HCO3 ABG O2 Saturation ABG Base Excess ABG Oxyhemoglobin ABG Sodium ABG Chloride ABG Glucose Oxyhemoglobin Carboxyhemoglobin Sodium Potassium Chloride Carbon Dioxide BUN Creatinine Glucose POC Glucose 128 H 132 H 179 H Hemoglobin A1c Ferritin AST ALT Alkaline Phosphatase Lactate Dehydrogenase C-Reactive Protein Total Protein Albumin Arterial Blood Glucose Coronavirus (PCR) 07/08/21 07/08/21 07/08/21 16:37 21:45 22:44 WBC MCH MCHC RDW Lymph % (Auto) Lymph # (Auto) [place] # (Auto) Baso # (Auto) Seg Neutrophils % Seg Neuts % (Manual) Lymphocytes % (Manual) Seg Neutrophils # Seg Neutrophils # Man Lymphocytes # (Manual) D-Dimer ABG pH POC ABG pO2 ABG pO2 ABG HCO3 ABG O2 Saturation ABG Base Excess ABG Oxyhemoglobin ABG Sodium ABG Chloride ABG Glucose Oxyhemoglobin Carboxyhemoglobin Sodium Potassium Chloride Carbon Dioxide BUN Creatinine Glucose POC Glucose 192 H 51 L 137 H Hemoglobin A1c Ferritin AST ALT Alkaline Phosphatase Lactate Dehydrogenase C-Reactive Protein Total Protein Albumin Arterial Blood Glucose Coronavirus (PCR) 07/09/21 07/09/21 07/09/21 04:45 04:45 04:45 WBC MCH MCHC RDW 18.3 H Lymph % (Auto) Lymph # (Auto) [place] # (Auto) Baso # (Auto) Seg Neutrophils % Seg Neuts % (Manual) 82.0 H Lymphocytes % (Manual) 13.0 L Seg Neutrophils # Seg Neutrophils # Man 7.8 H Lymphocytes # (Manual) D-Dimer 638.35 H ABG pH POC ABG pO2 ABG pO2 ABG HCO3 ABG O2 Saturation ABG Base Excess ABG Oxyhemoglobin ABG Sodium ABG Chloride ABG Glucose Oxyhemoglobin Carboxyhemoglobin Sodium Potassium Chloride 96.9 L Carbon Dioxide 35 H BUN Creatinine 0.2 L Glucose 135 H POC Glucose Hemoglobin A1c Ferritin AST ALT Alkaline Phosphatase Lactate Dehydrogenase C-Reactive Protein 4.30 H Total Protein Albumin Arterial Blood Glucose Coronavirus (PCR) 07/09/21 07/09/21 07/09/21 05:19 07:36 11:16 WBC MCH MCHC RDW Lymph % (Auto) Lymph # (Auto) [place] # (Auto) Baso # (Auto) Seg Neutrophils % Seg Neuts % (Manual) Lymphocytes % (Manual) Seg Neutrophils # Seg Neutrophils # Man Lymphocytes # (Manual) D-Dimer ABG pH POC ABG pO2 ABG pO2 ABG HCO3 ABG O2 Saturation ABG Base Excess ABG Oxyhemoglobin ABG Sodium ABG Chloride ABG Glucose Oxyhemoglobin Carboxyhemoglobin Sodium Potassium Chloride Carbon Dioxide BUN Creatinine Glucose POC Glucose 135 H 148 H 212 H Hemoglobin A1c Ferritin AST ALT Alkaline Phosphatase Lactate Dehydrogenase C-Reactive Protein Total Protein Albumin Arterial Blood Glucose Coronavirus (PCR) 07/09/21 07/09/21 07/10/21 15:21 21:12 05:40 WBC MCH MCHC RDW Lymph % (Auto) Lymph # (Auto) [place] # (Auto) Baso # (Auto) Seg Neutrophils % Seg Neuts % (Manual) Lymphocytes % (Manual) Seg Neutrophils # Seg Neutrophils # Man Lymphocytes # (Manual) D-Dimer ABG pH POC ABG pO2 ABG pO2 ABG HCO3 ABG O2 Saturation ABG Base Excess ABG Oxyhemoglobin ABG Sodium ABG Chloride ABG Glucose Oxyhemoglobin Carboxyhemoglobin Sodium Potassium 3.3 L Chloride 95.1 L Carbon Dioxide 39 H BUN Creatinine 0.2 L Glucose 122 H POC Glucose 128 H 196 H Hemoglobin A1c Ferritin AST ALT Alkaline Phosphatase Lactate Dehydrogenase C-Reactive Protein Total Protein Albumin Arterial Blood Glucose Coronavirus (PCR) 07/10/21 07/10/21 07/10/21 07:38 11:15 16:29 WBC MCH MCHC RDW Lymph % (Auto) Lymph # (Auto) [place] # (Auto) Baso # (Auto) Seg Neutrophils % Seg Neuts % (Manual) Lymphocytes % (Manual) Seg Neutrophils # Seg Neutrophils # Man Lymphocytes # (Manual) D-Dimer ABG pH POC ABG pO2 ABG pO2 ABG HCO3 ABG O2 Saturation ABG Base Excess ABG Oxyhemoglobin ABG Sodium ABG Chloride ABG Glucose Oxyhemoglobin Carboxyhemoglobin Sodium Potassium Chloride Carbon Dioxide BUN Creatinine Glucose POC Glucose 128 H 175 H 174 H Hemoglobin A1c Ferritin AST ALT Alkaline Phosphatase Lactate Dehydrogenase C-Reactive Protein Total Protein Albumin Arterial Blood Glucose Coronavirus (PCR) 07/10/21 07/11/21 07/11/21 20:49 05:50 12:08 WBC MCH MCHC RDW Lymph % (Auto) Lymph # (Auto) [place] # (Auto) Baso # (Auto) Seg Neutrophils % Seg Neuts % (Manual) Lymphocytes % (Manual) Seg Neutrophils # Seg Neutrophils # Man Lymphocytes # (Manual) D-Dimer ABG pH POC ABG pO2 ABG pO2 ABG HCO3 ABG O2 Saturation ABG Base Excess ABG Oxyhemoglobin ABG Sodium ABG Chloride ABG Glucose Oxyhemoglobin Carboxyhemoglobin Sodium Potassium Chloride 97.3 L Carbon Dioxide 34 H BUN Creatinine 0.2 L Glucose 109 H POC Glucose 142 H 220 H Hemoglobin A1c Ferritin AST ALT Alkaline Phosphatase Lactate Dehydrogenase C-Reactive Protein Total Protein Albumin Arterial Blood Glucose Coronavirus (PCR) 07/11/21 07/11/21 07/12/21 17:09 21:55 07:36 WBC MCH MCHC RDW Lymph % (Auto) Lymph # (Auto) [place] # (Auto) Baso # (Auto) Seg Neutrophils % Seg Neuts % (Manual) Lymphocytes % (Manual) Seg Neutrophils # Seg Neutrophils # Man Lymphocytes # (Manual) D-Dimer ABG pH POC ABG pO2 ABG pO2 ABG HCO3 ABG O2 Saturation ABG Base Excess ABG Oxyhemoglobin ABG Sodium ABG Chloride ABG Glucose Oxyhemoglobin Carboxyhemoglobin Sodium Potassium Chloride Carbon Dioxide BUN Creatinine Glucose POC Glucose 219 H 124 H 114 H Hemoglobin A1c Ferritin AST ALT Alkaline Phosphatase Lactate Dehydrogenase C-Reactive Protein Total Protein Albumin Arterial Blood Glucose Coronavirus (PCR)
[2021-07-12] MEDS ORDERED: FUROSEMIDE 40 MG/4 ML INJ IV NR (09:00)
[2021-07-12] MEDS: INSULIN LISPRO 100 UNIT/ML SUB-Q SCH ×4 (09:10→22:00)
[2021-07-12] MEDS: INSULIN GLARGINE 100 UNITS/ML SUB-Q SCH (09:11)
[2021-07-12] MEDS: CHOLECALCIFEROL (VIT D3) 1000 UNIT (25 mcg) TAB PO SCH (09:22)
[2021-07-12] MEDS: ASCORBIC ACID 500 MG TAB PO SCH (09:22)
[2021-07-12] MEDS: ALPRAZolam 1 MG TAB PO SCH ×2 (09:22→21:36)
[2021-07-12] MEDS: ZINC SULFATE 220 MG CAP PO SCH ×2 (09:23→21:36)
[2021-07-12] MEDS: predniSONE 10 MG TAB PO SCH (09:23)
[2021-07-12] MEDS: ENOXAPARIN 40 MG/0.4 ML INJ SUB-Q SCH (21:36)
[2021-07-12] MEDS: ACETAMINOPHEN 325 MG TAB PO PRN (21:36)
--- NOTE | 2021-07-13 07:32 | Progress Note ---
Assessment and Plan Assessment and plan: #Acute hypoxic respiratory failure -Currently on high flow nasal cannula (30 L, 75% FiO2) -continue prednisone taper, started 5mg today -Pulmonology following, assistance appreciated -Referral sent for LTACH (patient stay 88 days) -encourage prone positioning -will assess need for lasix PRN #Heart failure with preserved ejection fraction -TTE: LVEF 55-60% with diastolic dysfunction -will continue to monitor for signs of fluid overload #COVID-19 infection -Continue Covid vitamins #Type 2 diabetes -Continue Lantus 15 units daily and sliding scale insulin #Dysuria #Possible UTI -Improving -Urinalysis ordered 07/09, not collected -s/p Levaquin #Anxiety -Stable -Continue Xanax #DVT prophylaxis -Lovenox 40 daily #Deconditioning -Will benefit from SNF after prolonged hospital stay, Resolved issues #Sepsis secondary to COVID-19 #Iatrogenic diarrhea #Hypomagnesemia #Hyponatremia #Protein calorie malnutrition Disposition Plan: continue medical management Total Time Spent with Patient (Minutes): 20 minutes History Interval history: No acute events overnight. Currently on HFNC 30L/75% FIO2. No complaints at this time. Hospitalist Physical - Physical exam Narrative exam: GENERAL: Well-developed well-nourished. Lying in bed in no acute distress. HEENT: High flow nasal cannula at 30L/75% CHEST/LUNGS: Coarse breath sounds bilaterally. HEART/CARDIOVASCULAR: RRR. No murmur, rubs or gallops appreciated. ABDOMEN: +BS. NT/ND. PSYCH: Cooperative. - Constitutional Vitals: Temp Pulse Resp BP Pulse Ox 98.0 F 102 H 22 121/71 94 07/13/21 06:10 07/13/21 06:10 07/13/21 06:10 07/13/21 06:10 07/13/21 06:10 General appearance: Present: no acute distress, well-nourished, obese Results - Labs CBC & Chem 7: 07/09/21 04:45 07/13/21 08:08 Labs: Laboratory Last Values WBC 9.5 K/mm3 (4.5-11.0) 07/09/21 04:45 RBC 3.88 M/mm3 (3.65-5.03) 07/09/21 04:45 Hgb 11.8 gm/dl (10.1-14.3) 07/09/21 04:45 Hct 36.8 % (30.3-42.9) 07/09/21 04:45 MCV 95 fl (79-97) 07/09/21 04:45 MCH 30 pg (28-32) 07/09/21 04:45 MCHC 32 % (30-34) 07/09/21 04:45 RDW 18.3 % (13.2-15.2) H 07/09/21 04:45 Plt Count 299 K/mm3 (140-440) 07/09/21 04:45 Lymph % (Auto) 15.6 % (13.4-35.0) 07/07/21 06:00 [place] % (Auto) 6.6 % (0.0-7.3) 07/07/21 06:00 Eos % (Auto) 1.9 % (0.0-4.3) 07/07/21 06:00 Baso % (Auto) 1.0 % (0.0-1.8) 07/07/21 06:00 Lymph # (Auto) 2.5 K/mm3 (1.2-5.4) 07/07/21 06:00 [place] # (Auto) 1.1 K/mm3 (0.0-0.8) H 07/07/21 06:00 Eos # (Auto) 0.3 K/mm3 (0.0-0.4) 07/07/21 06:00 Baso # (Auto) 0.2 K/mm3 (0.0-0.1) H 07/07/21 06:00 Add Manual Diff Complete 07/09/21 04:45 Total Counted 100 07/09/21 04:45 Seg Neutrophils % 74.9 % (40.0-70.0) H 07/07/21 06:00 Seg Neuts % (Manual) 82.0 % (40.0-70.0) H 07/09/21 04:45 Band Neutrophils % 1.0 % 05/12/21 04:05 Lymphocytes % (Manual) 13.0 % (13.4-35.0) L 07/09/21 04:45 Monocytes % (Manual) 3.0 % (0.0-7.3) 07/09/21 04:45 Eosinophils % (Manual) 2.0 % (0.0-4.3) 07/09/21 04:45 Nucleated RBC % Not Reportable 07/09/21 04:45 Seg Neutrophils # 12.1 K/mm3 (1.8-7.7) H 07/07/21 06:00 Seg Neutrophils # Man 7.8 K/mm3 (1.8-7.7) H 07/09/21 04:45 Band Neutrophils # 0.0 K/mm3 07/09/21 04:45 Lymphocytes # (Manual) 1.2 K/mm3 (1.2-5.4) 07/09/21 04:45 Abs React Lymphs (Man) 0.0 K/mm3 07/09/21 04:45 Monocytes # (Manual) 0.3 K/mm3 (0.0-0.8) 07/09/21 04:45 Eosinophils # (Manual) 0.2 K/mm3 (0.0-0.4) 07/09/21 04:45 Basophils # (Manual) 0.0 K/mm3 (0.0-0.1) 07/09/21 04:45 Metamyelocytes # 0.0 K/mm3 07/09/21 04:45 Myelocytes # 0.0 K/mm3 07/09/21 04:45 Promyelocytes # 0.0 K/mm3 07/09/21 04:45 Blast Cells # 0.0 K/mm3 07/09/21 04:45 WBC Morphology Not Reportable 07/09/21 04:45 Hypersegmented Neuts Not Reportable 07/09/21 04:45 Hyposegmented Neuts Not Reportable 07/09/21 04:45 Hypogranular Neuts Not Reportable 07/09/21 04:45 Smudge Cells Not Reportable 07/09/21 04:45 Toxic Granulation Not Reportable 07/09/21 04:45 Toxic Vacuolation Not Reportable 07/09/21 04:45 Dohle Bodies Not Reportable 07/09/21 04:45 Pelger-Huet Anomaly Not Reportable 07/09/21 04:45 Janelle Rods Not Reportable 07/09/21 04:45 Platelet Estimate Consistent w auto 07/09/21 04:45 Clumped Platelets Not Reportable 07/09/21 04:45 Plt Clumps, EDTA Not Reportable 07/09/21 04:45 Large Platelets Not Reportable 07/09/21 04:45 Giant Platelets Rare 07/09/21 04:45 Platelet Satelliting Not Reportable 07/09/21 04:45 Plt Morphology Comment Not Reportable 07/09/21 04:45 RBC Morphology Not Reportable 07/09/21 04:45 Dimorphic RBCs Not Reportable 07/09/21 04:45 Polychromasia Not Reportable 07/09/21 04:45 Hypochromasia Few 07/09/21 04:45 Poikilocytosis Not Reportable 07/09/21 04:45 Anisocytosis Not Reportable 07/09/21 04:45 Microcytosis Not Reportable 07/09/21 04:45 Macrocytosis Not Reportable 07/09/21 04:45 Spherocytes Not Reportable 07/09/21 04:45 Pappenheimer Bodies Not Reportable 07/09/21 04:45 Sickle Cells Not Reportable 07/09/21 04:45 Target Cells Not Reportable 07/09/21 04:45 Tear Drop Cells Not Reportable 07/09/21 04:45 Ovalocytes Not Reportable 07/09/21 04:45 Stomatocytes 1+ 07/09/21 04:45 Helmet Cells Not Reportable 07/09/21 04:45 Ahuja-Excelsior Bodies Not Reportable 07/09/21 04:45 [place] Rings Not Reportable 07/09/21 04:45 Crow Cells Not Reportable 07/09/21 04:45 Bite Cells Not Reportable 07/09/21 04:45 Crenated Cell Not Reportable 07/09/21 04:45 Elliptocytes Not Reportable 07/09/21 04:45 Acanthocytes (Spur) Not Reportable 07/09/21 04:45 Rouleaux Not Reportable 07/09/21 04:45 Hemoglobin C Crystals Not Reportable 07/09/21 04:45 Schistocytes Not Reportable 07/09/21 04:45 Malaria parasites Not Reportable 07/09/21 04:45 Justin Bodies Not Reportable 07/09/21 04:45 Hem Pathologist Commnt No 07/09/21 04:45 D-Dimer 638.35 ng/mlDDU (0-234) H 07/09/21 04:45 ABG pH 7.403 pH Units (7.350-7.450) 05/14/21 02:23 POC ABG pCO2 45.4 mmHg (32.0-48.0) 05/03/21 04:49 ABG pCO2 50.2 mm Hg 05/14/21 02:23 POC ABG pO2 65.3 mmHg (83-108) L 05/03/21 04:49 ABG pO2 130.3 mm Hg (80.0-90.0) H 05/14/21 02:23 POC ABG HCO3 18.5 05/03/21 04:49 ABG HCO3 30.6 mmol/L (20.0-26.0) H 05/14/21 02:23 ABG O2 Saturation 98.5 % (95.0-99.0) 05/14/21 02:23 ABG O2 Content 17.9 (0.0-44) 05/14/21 02:23 POC ABG Base Excess -8.9 05/03/21 04:49 ABG Base Excess 4.9 mmol/L (-2.0-3.0) H 05/14/21 02:23 ABG Hemoglobin 13.0 gm/dl (12.0-16.0) 05/14/21 02:23 ABG Oxyhemoglobin 87.8 (94-98) L 05/03/21 04:49 ABG Carboxyhemoglobin 1.4 % (0.0-5.0) 05/14/21 02:23 ABG Methemoglobin 0.6 % (0.0-1.5) 05/14/21 02:23 ABG Sodium 133.0 mmol/L (136.0-145.0) L 05/03/21 04:49 ABG Potassium 3.9 mmol/L (3.40-4.50) 05/03/21 04:49 ABG Chloride 97.0 mmol/L (98-107) L 05/03/21 04:49 ABG Glucose 403 mg/dL (65-95) H 05/03/21 04:49 Oxyhemoglobin 96.5 % (95.0-99.0) 05/14/21 02:23 Carboxyhemoglobin 0.6 (0.5-1.5) 05/03/21 04:49 FiO2 90 % 05/14/21 02:23 FiO2 % 100.0 05/03/21 04:49 Sodium 139 mmol/L (137-145) 07/11/21 05:50 Potassium 4.0 mmol/L (3.6-5.0) D 07/11/21 05:50 Chloride 97.3 mmol/L (98-107) L 07/11/21 05:50 Carbon Dioxide 34 mmol/L (22-30) H 07/11/21 05:50 Anion Gap 12 mmol/L 07/11/21 05:50 BUN 13 mg/dL (7-17) 07/11/21 05:50 Creatinine 0.2 mg/dL (0.6-1.2) L 07/11/21 05:50 Estimated GFR > 60 ml/min 07/11/21 05:50 BUN/Creatinine Ratio 65 % 07/11/21 05:50 Glucose 109 mg/dL (65-100) H 07/11/21 05:50 POC Glucose 189 mg/dL (70-105) H 07/12/21 22:20 Hemoglobin A1c 8.5 % (4-6) H 04/18/21 07:36 Calcium 9.5 mg/dL (8.4-10.2) 07/11/21 05:50 Phosphorus 3.60 mg/dL (2.5-4.5) 07/09/21 04:45 Magnesium 1.90 mg/dL (1.7-2.3) 07/09/21 04:45 Ferritin 155.9 ng/mL (10.0-200.0) 07/09/21 04:45 Total Bilirubin 0.30 mg/dL (0.1-1.2) 06/28/21 05:43 AST 19 units/L (5-40) 06/28/21 05:43 ALT 63 units/L (7-56) H 06/28/21 05:43 Alkaline Phosphatase 61 units/L (35-129) 06/28/21 05:43 Lactate Dehydrogenase 475 units/L (91-180) H 06/05/21 05:26 C-Reactive Protein 4.30 mg/dL (0.00-1.30) H 07/09/21 04:45 NT-Pro-B Natriuret Pep 59.45 pg/mL (0-450) 07/07/21 13:40 Total Protein 6.5 g/dL (6.3-8.2) 06/28/21 05:43 Albumin 3.3 g/dL (3.9-5) L 06/28/21 05:43 Albumin/Globulin Ratio 1.0 % 06/28/21 05:43 Triglycerides < 9 mg/dL (2-149) 05/03/21 04:30 Procalcitonin < 0.05 ng/mL (<0.15) 05/23/21 09:50 Arterial Blood Glucose 403 mg/dL (65-95) H 05/03/21 04:49 Arterial Blood Ionized Calcium 4.9 mg/dL (4.6-5.3) 05/03/21 04:49 Coronavirus (PCR) Positive (Negative) A 06/05/21 08:30 Amos/IV: Voiding Method Bedpan Active Medications - Current Medications Current Medications: Generic Name Dose Route Start Last Admin Trade Name Freq PRN Reason Stop Dose Admin Acetaminophen 650 mg 07/02/21 17:48 07/12/21 21:36 Acetaminophen 325 Mg Tab PO 650 mg Q4H PRN Administration Pain, Mild (1-3) Albuterol 2.5 mg 04/16/21 13:39 04/21/21 20:39 Albuterol 2.5 Mg/3 Ml Nebu IH 2.5 mg Q4HRT PRN Administration Shortness Of Breath Alprazolam 2 mg 07/04/21 12:00 07/12/21 21:36 Alprazolam 1 Mg Tab PO 2 mg BID TUTU Administration Ascorbic Acid 500 mg 04/24/21 10:00 07/12/21 09:22 Ascorbic Acid 500 Mg Tab PO 500 mg QDAY TUTU Administration Cholecalciferol 1,000 unit 04/17/21 10:00 07/12/21 09:22 Cholecalciferol (Vit D3) 1000 Unit (25 Mcg) Tab PO 1,000 unit QDAY TUTU Administration Dextrose 50 ml 04/18/21 07:30 04/28/21 09:59 Dextrose 50% In Water (25gm) 50 Ml Syringe IV 50 ml Q30MIN PRN Administration Hypoglycemia Protocol Enoxaparin Sodium 40 mg 05/19/21 22:00 07/12/21 21:36 Enoxaparin 40 Mg/0.4 Ml Inj SUB-Q 40 mg QDAY@2200 TUTU Administration Protocol Ibuprofen 600 mg 07/11/21 11:00 Ibuprofen 600 Mg Tab PO Q6H PRN Ear Pain Insulin Glargine 15 units 06/25/21 10:00 07/12/21 09:11 Insulin Glargine 100 Units/Ml SUB-Q Not Given DAILY TUTU Insulin Human Lispro 0 unit 05/18/21 12:00 07/12/21 22:00 Insulin Lispro 100 Unit/Ml SUB-Q 3 unit ACHS TUTU Administration Protocol Ondansetron HCl 4 mg 04/16/21 14:00 05/30/21 10:07 Ondansetron 4 Mg/2 Ml Inj IV 4 mg Q8H PRN Administration Nausea And Vomiting Prednisone 10 mg 07/03/21 10:00 07/12/21 09:23 Prednisone 10 Mg Tab PO 10 mg QDAY TUTU Administration Sodium Chloride 10 ml 04/16/21 22:00 07/13/21 03:38 Sodium Chloride 0.9% 10 Ml Flush Syringe IV 10 ml BID TUTU Administration Sodium Chloride 10 ml 04/16/21 13:39 05/22/21 15:21 Sodium Chloride 0.9% 10 Ml Flush Syringe IV 10 ml PRN PRN Administration LINE FLUSH Zinc Sulfate 220 mg 04/16/21 22:00 07/12/21 21:36 Zinc Sulfate 220 Mg Cap PO 220 mg BID TUTU Administration Zolpidem Tartrate 10 mg 05/26/21 08:56 07/04/21 22:00 Zolpidem 5 Mg Tab PO 10 mg QHS PRN Administration Insomnia Nutrition/Malnutrition Assess - Dietary Evaluation Nutrition/Malnutrition Findings: Nutrition Notes Start: 04/23/21 07:41 Freq: Status: Active Protocol: Document 07/03/21 16:54 GB (Rec: 07/03/21 17:11 GB [id number]) Nutrition Notes Initial or Follow up Reassessment Current Diagnosis Respiratory Failure Other Pertinent Diagnosis oral thrush, COVID-19 pneu Current Diet consistent carbohydrate Labs/Tests 07/03: creatinine 0.3, K 3.2 Pertinent Medications Vit C, Vit D3, D5 (PRN), Prednisone, NaCl, Zn Sulfate Height 4 ft 11.84 in Weight 60.3 kg [place] Body Weight (kg) 45.09 BMI 26.1 Weight change and time frame 04/16/21: 74.843kg 05/17/21: 68.1kg 06/16/21: 60.3kg change of -14.54kg for -19.43% in 60 days. Per MD note: pt has been diuresed thorughout stay. Weight Status Overweight Subjective/Other Information MD notes 07/03: pt showing improvement, prednisone weaning down, possible weaning of O2. Last BM: 07/02 PO intake recorded at 50-100% Percent of energy/protein needs met: PO intake of meals meet 75% or greater of EEN Burn Absent Trauma Absent GI Symptoms None Food Allergy No Skin Integrity/Comment skin tear rt/lt buttocks Current % PO Good (75-100%) Minimum of two criteria No #3 Nutrition Diagnosis No nutrition diagnosis at this time Etiology respiratory failure As Evidenced by Signs and Symptoms recovering, good po, weight loss r/t diurese therapy #2 Nutrition Diagnosis Malnutrition Comments: Wt loss due to diurese for most of stay. PO intake is recorded at 75- 100% Etiology acute illness As Evidenced by Signs and Symptoms <50% EER in >5 days, >5% wt loss in 1 month Diagnosis Progress(for reassessment Resolved documentation) #1 Nutrition Diagnosis Inadequate oral intake Etiology ARF As Evidenced by Signs and Symptoms pt continues to meet 100%/93% of kcal/protein needs Diagnosis Progress(for reassessment Resolved documentation) Is patient on ventilator? No Is Patient Ambulatory and/or Out of Bed Yes REE-([facility]-ambulatory/OOB) [ 1491.022 [id number]] Kcal/Kg value to use for calculation 25 Approximate Energy Requirements Using 1508 kcal/Kg Calculation Used for Recommendations Kcal/kg Additional Notes Pro needs 1-1.2g/kg @ 60k -72g/day Fluid needs 1ml/kcal or per Nutrition Intervention Change Diet Order: continue Nutrition Support: n/a Add Supplement/Snack (indicate name/kcal n/a /protein ) Goal #1 PO intake of meals to be 75% or greater daily for LOS Goal #2 Weight to stabilize +/-3% current weight for LOS Follow-Up By: 08/07/21 Additional Comments f/u: po intake, weight
[2021-07-13] MEDS: INSULIN LISPRO 100 UNIT/ML SUB-Q SCH ×4 (08:20→22:25)
[2021-07-13 09:14] LABS: Blood Urea Nitrogen 16 mg/dL (7-17); Calcium 9.8 mg/dL (8.4-10.2); Hemolysis Index 9
[2021-07-13 09:22] LABS: BUN/Creatinine Ratio 53
[2021-07-13] MEDS: ZINC SULFATE 220 MG CAP PO SCH ×2 (10:15→22:14)
[2021-07-13] MEDS: ALPRAZolam 1 MG TAB PO SCH ×2 (10:15→22:15)
[2021-07-13] MEDS: predniSONE 10 MG TAB PO SCH (10:15)
[2021-07-13] MEDS: ASCORBIC ACID 500 MG TAB PO SCH (10:15)
[2021-07-13] MEDS: CHOLECALCIFEROL (VIT D3) 1000 UNIT (25 mcg) TAB PO SCH (10:15)
[2021-07-13] MEDS: INSULIN GLARGINE 100 UNITS/ML SUB-Q SCH (10:16)
[2021-07-13] MEDS: predniSONE 5 MG TAB PO SCH (15:06)
[2021-07-13] MEDS: ENOXAPARIN 40 MG/0.4 ML INJ SUB-Q SCH (22:14)
[2021-07-13] MEDS: ACETAMINOPHEN 325 MG TAB PO PRN (22:24)
--- NOTE | 2021-07-14 07:20 | Progress Note ---
Assessment and Plan Assessment and plan: #Acute hypoxic respiratory failure -Currently on high flow nasal cannula (30 L, 75% FiO2) -continue prednisone 5mg qday -Pulmonology following, assistance appreciated -Referral sent for LTACH (patient stay 89 days) -encouraged prone positioning -will assess need for lasix PRN #Heart failure with preserved ejection fraction -TTE: LVEF 55-60% with diastolic dysfunction -will continue to monitor for signs of fluid overload #COVID-19 infection -Continue Covid vitamins #Type 2 diabetes -Continue Lantus 15 units daily and sliding scale insulin #Dysuria #Possible UTI -Improving -Urinalysis ordered 07/09, not collected -s/p Levaquin #Anxiety -Stable -Continue Xanax #DVT prophylaxis -Lovenox 40 daily #Deconditioning -Will benefit from SNF after prolonged hospital stay, Resolved issues #Sepsis secondary to COVID-19 #Iatrogenic diarrhea #Hypomagnesemia #Hyponatremia #Protein calorie malnutrition Disposition Plan: continue medical management Total Time Spent with Patient (Minutes): 20 minutes History Interval history: No acute events overnight. Currently on HFNC 30L/75% FIO2. No complaints at this time. Hospitalist Physical - Physical exam Narrative exam: GENERAL: Well-developed well-nourished. Lying in bed in no acute distress. HEENT: High flow nasal cannula at 30L/75% CHEST/LUNGS: Coarse breath sounds bilaterally. HEART/CARDIOVASCULAR: RRR. No murmur, rubs or gallops appreciated. ABDOMEN: +BS. NT/ND. PSYCH: Cooperative. - Constitutional Vitals: Temp Pulse Resp BP Pulse Ox 97.5 F L 91 H 20 120/75 97 07/14/21 05:56 07/14/21 05:56 07/14/21 05:56 07/14/21 05:56 07/14/21 05:56 General appearance: Present: no acute distress, well-nourished, obese Results - Labs CBC & Chem 7: 07/09/21 04:45 07/13/21 08:08 Labs: Laboratory Last Values WBC 9.5 K/mm3 (4.5-11.0) 07/09/21 04:45 RBC 3.88 M/mm3 (3.65-5.03) 07/09/21 04:45 Hgb 11.8 gm/dl (10.1-14.3) 07/09/21 04:45 Hct 36.8 % (30.3-42.9) 07/09/21 04:45 MCV 95 fl (79-97) 07/09/21 04:45 MCH 30 pg (28-32) 07/09/21 04:45 MCHC 32 % (30-34) 07/09/21 04:45 RDW 18.3 % (13.2-15.2) H 07/09/21 04:45 Plt Count 299 K/mm3 (140-440) 07/09/21 04:45 Lymph % (Auto) 15.6 % (13.4-35.0) 07/07/21 06:00 Swisher % (Auto) 6.6 % (0.0-7.3) 07/07/21 06:00 Eos % (Auto) 1.9 % (0.0-4.3) 07/07/21 06:00 Baso % (Auto) 1.0 % (0.0-1.8) 07/07/21 06:00 Lymph # (Auto) 2.5 K/mm3 (1.2-5.4) 07/07/21 06:00 Swisher # (Auto) 1.1 K/mm3 (0.0-0.8) H 07/07/21 06:00 Eos # (Auto) 0.3 K/mm3 (0.0-0.4) 07/07/21 06:00 Baso # (Auto) 0.2 K/mm3 (0.0-0.1) H 07/07/21 06:00 Add Manual Diff Complete 07/09/21 04:45 Total Counted 100 07/09/21 04:45 Seg Neutrophils % 74.9 % (40.0-70.0) H 07/07/21 06:00 Seg Neuts % (Manual) 82.0 % (40.0-70.0) H 07/09/21 04:45 Band Neutrophils % 1.0 % 05/12/21 04:05 Lymphocytes % (Manual) 13.0 % (13.4-35.0) L 07/09/21 04:45 Monocytes % (Manual) 3.0 % (0.0-7.3) 07/09/21 04:45 Eosinophils % (Manual) 2.0 % (0.0-4.3) 07/09/21 04:45 Nucleated RBC % Not Reportable 07/09/21 04:45 Seg Neutrophils # 12.1 K/mm3 (1.8-7.7) H 07/07/21 06:00 Seg Neutrophils # Man 7.8 K/mm3 (1.8-7.7) H 07/09/21 04:45 Band Neutrophils # 0.0 K/mm3 07/09/21 04:45 Lymphocytes # (Manual) 1.2 K/mm3 (1.2-5.4) 07/09/21 04:45 Abs React Lymphs (Man) 0.0 K/mm3 07/09/21 04:45 Monocytes # (Manual) 0.3 K/mm3 (0.0-0.8) 07/09/21 04:45 Eosinophils # (Manual) 0.2 K/mm3 (0.0-0.4) 07/09/21 04:45 Basophils # (Manual) 0.0 K/mm3 (0.0-0.1) 07/09/21 04:45 Metamyelocytes # 0.0 K/mm3 07/09/21 04:45 Myelocytes # 0.0 K/mm3 07/09/21 04:45 Promyelocytes # 0.0 K/mm3 07/09/21 04:45 Blast Cells # 0.0 K/mm3 07/09/21 04:45 WBC Morphology Not Reportable 07/09/21 04:45 Hypersegmented Neuts Not Reportable 07/09/21 04:45 Hyposegmented Neuts Not Reportable 07/09/21 04:45 Hypogranular Neuts Not Reportable 07/09/21 04:45 Smudge Cells Not Reportable 07/09/21 04:45 Toxic Granulation Not Reportable 07/09/21 04:45 Toxic Vacuolation Not Reportable 07/09/21 04:45 Dohle Bodies Not Reportable 07/09/21 04:45 Pelger-Huet Anomaly Not Reportable 07/09/21 04:45 Janelle Rods Not Reportable 07/09/21 04:45 Platelet Estimate Consistent w auto 07/09/21 04:45 Clumped Platelets Not Reportable 07/09/21 04:45 Plt Clumps, EDTA Not Reportable 07/09/21 04:45 Large Platelets Not Reportable 07/09/21 04:45 Giant Platelets Rare 07/09/21 04:45 Platelet Satelliting Not Reportable 07/09/21 04:45 Plt Morphology Comment Not Reportable 07/09/21 04:45 RBC Morphology Not Reportable 07/09/21 04:45 Dimorphic RBCs Not Reportable 07/09/21 04:45 Polychromasia Not Reportable 07/09/21 04:45 Hypochromasia Few 07/09/21 04:45 Poikilocytosis Not Reportable 07/09/21 04:45 Anisocytosis Not Reportable 07/09/21 04:45 Microcytosis Not Reportable 07/09/21 04:45 Macrocytosis Not Reportable 07/09/21 04:45 Spherocytes Not Reportable 07/09/21 04:45 Pappenheimer Bodies Not Reportable 07/09/21 04:45 Sickle Cells Not Reportable 07/09/21 04:45 Target Cells Not Reportable 07/09/21 04:45 Tear Drop Cells Not Reportable 07/09/21 04:45 Ovalocytes Not Reportable 07/09/21 04:45 Stomatocytes 1+ 07/09/21 04:45 Helmet Cells Not Reportable 07/09/21 04:45 [place] Bodies Not Reportable 07/09/21 04:45 [place] Rings Not Reportable 07/09/21 04:45 Crow Cells Not Reportable 07/09/21 04:45 Bite Cells Not Reportable 07/09/21 04:45 Crenated Cell Not Reportable 07/09/21 04:45 Elliptocytes Not Reportable 07/09/21 04:45 Acanthocytes (Spur) Not Reportable 07/09/21 04:45 Rouleaux Not Reportable 07/09/21 04:45 Hemoglobin C Crystals Not Reportable 07/09/21 04:45 Schistocytes Not Reportable 07/09/21 04:45 Malaria parasites Not Reportable 07/09/21 04:45 Justin Bodies Not Reportable 07/09/21 04:45 Hem Pathologist Commnt No 07/09/21 04:45 D-Dimer 638.35 ng/mlDDU (0-234) H 07/09/21 04:45 ABG pH 7.403 pH Units (7.350-7.450) 05/14/21 02:23 POC ABG pCO2 45.4 mmHg (32.0-48.0) 05/03/21 04:49 ABG pCO2 50.2 mm Hg 05/14/21 02:23 POC ABG pO2 65.3 mmHg (83-108) L 05/03/21 04:49 ABG pO2 130.3 mm Hg (80.0-90.0) H 05/14/21 02:23 POC ABG HCO3 18.5 05/03/21 04:49 ABG HCO3 30.6 mmol/L (20.0-26.0) H 05/14/21 02:23 ABG O2 Saturation 98.5 % (95.0-99.0) 05/14/21 02:23 ABG O2 Content 17.9 (0.0-44) 05/14/21 02:23 POC ABG Base Excess -8.9 05/03/21 04:49 ABG Base Excess 4.9 mmol/L (-2.0-3.0) H 05/14/21 02:23 ABG Hemoglobin 13.0 gm/dl (12.0-16.0) 05/14/21 02:23 ABG Oxyhemoglobin 87.8 (94-98) L 05/03/21 04:49 ABG Carboxyhemoglobin 1.4 % (0.0-5.0) 05/14/21 02:23 ABG Methemoglobin 0.6 % (0.0-1.5) 05/14/21 02:23 ABG Sodium 133.0 mmol/L (136.0-145.0) L 05/03/21 04:49 ABG Potassium 3.9 mmol/L (3.40-4.50) 05/03/21 04:49 ABG Chloride 97.0 mmol/L (98-107) L 05/03/21 04:49 ABG Glucose 403 mg/dL (65-95) H 05/03/21 04:49 Oxyhemoglobin 96.5 % (95.0-99.0) 05/14/21 02:23 Carboxyhemoglobin 0.6 (0.5-1.5) 05/03/21 04:49 FiO2 90 % 05/14/21 02:23 FiO2 % 100.0 05/03/21 04:49 Sodium 141 mmol/L (137-145) 07/13/21 08:08 Potassium 3.8 mmol/L (3.6-5.0) 07/13/21 08:08 Chloride 94.4 mmol/L (98-107) L 07/13/21 08:08 Carbon Dioxide 34 mmol/L (22-30) H 07/13/21 08:08 Anion Gap 16 mmol/L 07/13/21 08:08 BUN 16 mg/dL (7-17) 07/13/21 08:08 Creatinine 0.3 mg/dL (0.6-1.2) L 07/13/21 08:08 Estimated GFR > 60 ml/min 07/13/21 08:08 BUN/Creatinine Ratio 53 % 07/13/21 08:08 Glucose 149 mg/dL (65-100) H 07/13/21 08:08 POC Glucose 223 mg/dL (70-105) H 07/13/21 21:41 Hemoglobin A1c 8.5 % (4-6) H 04/18/21 07:36 Calcium 9.8 mg/dL (8.4-10.2) 07/13/21 08:08 Phosphorus 3.60 mg/dL (2.5-4.5) 07/09/21 04:45 Magnesium 1.90 mg/dL (1.7-2.3) 07/09/21 04:45 Ferritin 155.9 ng/mL (10.0-200.0) 07/09/21 04:45 Total Bilirubin 0.30 mg/dL (0.1-1.2) 06/28/21 05:43 AST 19 units/L (5-40) 06/28/21 05:43 ALT 63 units/L (7-56) H 06/28/21 05:43 Alkaline Phosphatase 61 units/L (35-129) 06/28/21 05:43 Lactate Dehydrogenase 475 units/L (91-180) H 06/05/21 05:26 C-Reactive Protein 4.30 mg/dL (0.00-1.30) H 07/09/21 04:45 NT-Pro-B Natriuret Pep 59.45 pg/mL (0-450) 07/07/21 13:40 Total Protein 6.5 g/dL (6.3-8.2) 06/28/21 05:43 Albumin 3.3 g/dL (3.9-5) L 06/28/21 05:43 Albumin/Globulin Ratio 1.0 % 06/28/21 05:43 Triglycerides < 9 mg/dL (2-149) 05/03/21 04:30 Procalcitonin < 0.05 ng/mL (<0.15) 05/23/21 09:50 Arterial Blood Glucose 403 mg/dL (65-95) H 05/03/21 04:49 Arterial Blood Ionized Calcium 4.9 mg/dL (4.6-5.3) 05/03/21 04:49 Coronavirus (PCR) Positive (Negative) A 06/05/21 08:30 Amos/IV: Voiding Method Bedpan Active Medications - Current Medications Current Medications: Generic Name Dose Route Start Last Admin Trade Name Freq PRN Reason Stop Dose Admin Acetaminophen 650 mg 07/02/21 17:48 07/13/21 22:24 Acetaminophen 325 Mg Tab PO 650 mg Q4H PRN Administration Pain, Mild (1-3) Albuterol 2.5 mg 04/16/21 13:39 04/21/21 20:39 Albuterol 2.5 Mg/3 Ml Nebu IH 2.5 mg Q4HRT PRN Administration Shortness Of Breath Alprazolam 2 mg 07/04/21 12:00 07/13/21 22:15 Alprazolam 1 Mg Tab PO 2 mg BID TUTU Administration Ascorbic Acid 500 mg 04/24/21 10:00 07/13/21 10:15 Ascorbic Acid 500 Mg Tab PO 500 mg QDAY TUTU Administration Cholecalciferol 1,000 unit 04/17/21 10:00 07/13/21 10:15 Cholecalciferol (Vit D3) 1000 Unit (25 Mcg) Tab PO 1,000 unit QDAY TUTU Administration Dextrose 50 ml 04/18/21 07:30 04/28/21 09:59 Dextrose 50% In Water (25gm) 50 Ml Syringe IV 50 ml Q30MIN PRN Administration Hypoglycemia Protocol Enoxaparin Sodium 40 mg 05/19/21 22:00 07/13/21 22:14 Enoxaparin 40 Mg/0.4 Ml Inj SUB-Q 40 mg QDAY@2200 TUTU Administration Protocol Ibuprofen 600 mg 07/11/21 11:00 Ibuprofen 600 Mg Tab PO Q6H PRN Ear Pain Insulin Glargine 15 units 06/25/21 10:00 07/13/21 10:16 Insulin Glargine 100 Units/Ml SUB-Q 15 units DAILY TUTU Administration Insulin Human Lispro 0 unit 05/18/21 12:00 07/13/21 22:25 Insulin Lispro 100 Unit/Ml SUB-Q 4 unit ACHS TUTU Administration Protocol Ondansetron HCl 4 mg 04/16/21 14:00 05/30/21 10:07 Ondansetron 4 Mg/2 Ml Inj IV 4 mg Q8H PRN Administration Nausea And Vomiting Prednisone 5 mg 07/13/21 12:00 07/13/21 15:06 Prednisone 5 Mg Tab PO 5 mg QDAY TUTU Administration Sodium Chloride 10 ml 04/16/21 22:00 07/13/21 22:15 Sodium Chloride 0.9% 10 Ml Flush Syringe IV 10 ml BID TUTU Administration Sodium Chloride 10 ml 04/16/21 13:39 05/22/21 15:21 Sodium Chloride 0.9% 10 Ml Flush Syringe IV 10 ml PRN PRN Administration LINE FLUSH Zinc Sulfate 220 mg 04/16/21 22:00 07/13/21 22:14 Zinc Sulfate 220 Mg Cap PO 220 mg BID TUTU Administration Zolpidem Tartrate 10 mg 05/26/21 08:56 07/04/21 22:00 Zolpidem 5 Mg Tab PO 10 mg QHS PRN Administration Insomnia Nutrition/Malnutrition Assess - Dietary Evaluation Nutrition/Malnutrition Findings: Nutrition Notes Start: 04/23/21 07:41 Freq: Status: Active Protocol: Document 07/03/21 16:54 GB (Rec: 07/03/21 17:11 GB [email or web address]) Nutrition Notes Initial or Follow up Reassessment Current Diagnosis Respiratory Failure Other Pertinent Diagnosis oral thrush, COVID-19 pneu Current Diet consistent carbohydrate Labs/Tests 07/03: creatinine 0.3, K 3.2 Pertinent Medications Vit C, Vit D3, D5 (PRN), Prednisone, NaCl, Zn Sulfate Height 4 ft 11.84 in Weight 60.3 kg [place] Body Weight (kg) 45.09 BMI 26.1 Weight change and time frame 04/16/21: 74.843kg 05/17/21: 68.1kg 10/3/21: 60.3kg change of -14.54kg for -19.43% in 60 days. Per MD note: pt has been diuresed thorughout stay. Weight Status Overweight Subjective/Other Information MD notes 07/03: pt showing improvement, prednisone weaning down, possible weaning of O2. Last BM: 07/02 PO intake recorded at 50-100% Percent of energy/protein needs met: PO intake of meals meet 75% or greater of EEN Burn Absent Trauma Absent GI Symptoms None Food Allergy No Skin Integrity/Comment skin tear rt/lt buttocks Current % PO Good (75-100%) Minimum of two criteria No #3 Nutrition Diagnosis No nutrition diagnosis at this time Etiology respiratory failure As Evidenced by Signs and Symptoms recovering, good po, weight loss r/t diurese therapy #2 Nutrition Diagnosis Malnutrition Comments: Wt loss due to diurese for most of stay. PO intake is recorded at 75- 100% Etiology acute illness As Evidenced by Signs and Symptoms <50% EER in >5 days, >5% wt loss in 1 month Diagnosis Progress(for reassessment Resolved documentation) #1 Nutrition Diagnosis Inadequate oral intake Etiology ARF As Evidenced by Signs and Symptoms pt continues to meet 100%/93% of kcal/protein needs Diagnosis Progress(for reassessment Resolved documentation) Is patient on ventilator? No Is Patient Ambulatory and/or Out of Bed Yes REE-([facility]-ambulatory/OOB) [ 1491.022 [id number]] Kcal/Kg value to use for calculation 25 Approximate Energy Requirements Using 1508 kcal/Kg Calculation Used for Recommendations Kcal/kg Additional Notes Pro needs 1-1.2g/kg @ 60k -72g/day Fluid needs 1ml/kcal or per MD Nutrition Intervention Change Diet Order: continue Nutrition Support: n/a Add Supplement/Snack (indicate name/kcal n/a /protein ) Goal #1 PO intake of meals to be 75% or greater daily for LOS Goal #2 Weight to stabilize +/-3% current weight for LOS Follow-Up By: 08/07/21 Additional Comments f/u: po intake, weight
[2021-07-14] MEDS: INSULIN LISPRO 100 UNIT/ML SUB-Q SCH ×4 (07:45→21:06)
[2021-07-14] MEDS: CHOLECALCIFEROL (VIT D3) 1000 UNIT (25 mcg) TAB PO SCH (10:19)
[2021-07-14] MEDS: ASCORBIC ACID 500 MG TAB PO SCH (10:19)
[2021-07-14] MEDS: ALPRAZolam 1 MG TAB PO SCH ×2 (10:19→21:05)
[2021-07-14] MEDS: predniSONE 5 MG TAB PO SCH (10:19)
[2021-07-14] MEDS: ZINC SULFATE 220 MG CAP PO SCH ×2 (10:19→21:07)
[2021-07-14] MEDS: INSULIN GLARGINE 100 UNITS/ML SUB-Q SCH (10:21)
--- NOTE | 2021-07-14 12:11 | Progress Note ---
Assessment and Plan - Patient Problems (1) Pneumonia due to SARS-associated coronavirus Current Visit: Yes Status: Acute (2) Acute hypoxemic respiratory failure Current Visit: Yes Status: Acute (3) Obesity hypoventilation syndrome Current Visit: Yes Status: Acute (4) Pneumonia Current Visit: Yes Status: Acute Qualifiers: Aspiration pneumonia type: unspecified Laterality: unspecified laterality Lung location: unspecified part of lung (5) Transaminitis Current Visit: No Status: Acute (6) Oral thrush Current Visit: Yes Status: Acute Subjective Principal diagnosis: Covid-19 Interval history: awake lying prone Objective Vital Signs - 12hr 07/14/21 07/14/21 07/14/21 05:56 08:54 10:00 Temperature 97.5 F L Pulse Rate 91 H Respiratory 20 22 Rate Blood Pressure 120/75 O2 Sat by Pulse 97 93 94 Oximetry Constitutional: no acute distress, alert Eyes: non-icteric ENT: oropharynx moist Neck: supple Effort: normal Ascultation: Bilateral: diminished breath sounds Cardiovascular: regular rate and rhythm Gastrointestinal: normoactive bowel sounds, soft, non-tender, non-distended Integumentary: normal Extremities: no cyanosis, no edema, pink and warm Neurologic: normal mental status, non-focal exam, pupils equal and round, CN II-XII normal Psychiatric: mood appropriate, affect normal CBC and BMP: 07/09/21 04:45 07/13/21 08:08 ABG, PT/INR, D-dimer: ABG ABG pH 7.403 pH Units (7.350-7.450) 05/14/21 02:23 POC ABG pCO2 45.4 mmHg (32.0-48.0) 05/03/21 04:49 ABG pCO2 50.2 mm Hg 05/14/21 02:23 POC ABG pO2 65.3 mmHg (83-108) L 05/03/21 04:49 ABG pO2 130.3 mm Hg (80.0-90.0) H 05/14/21 02:23 POC ABG HCO3 18.5 05/03/21 04:49 ABG O2 Saturation 98.5 % (95.0-99.0) 05/14/21 02:23 PT/INR, D-dimer D-Dimer 638.35 ng/mlDDU (0-234) H 07/09/21 04:45 Abnormal lab findings: Abnormal Labs 04/16/21 04/16/21 04/16/21 11:42 11:42 11:42 WBC MCH MCHC RDW 16.1 H Lymph % (Auto) 7.8 L Lymph # (Auto) 0.8 L [place] # (Auto) Baso # (Auto) Seg Neutrophils % 87.7 H Seg Neuts % (Manual) Lymphocytes % (Manual) Seg Neutrophils # 8.5 H Seg Neutrophils # Man Lymphocytes # (Manual) D-Dimer 338.70 H ABG pH POC ABG pO2 ABG pO2 ABG HCO3 ABG O2 Saturation ABG Base Excess ABG Oxyhemoglobin ABG Sodium ABG Chloride ABG Glucose Oxyhemoglobin Carboxyhemoglobin Sodium Potassium Chloride Carbon Dioxide BUN Creatinine Glucose 194 H POC Glucose Hemoglobin A1c Ferritin AST ALT Alkaline Phosphatase Lactate Dehydrogenase C-Reactive Protein Total Protein 8.4 H Albumin 3.8 L Arterial Blood Glucose Coronavirus (PCR) 04/16/21 04/16/21 04/17/21 11:42 11:42 03:50 WBC MCH MCHC RDW 16.0 H Lymph % (Auto) 7.7 L Lymph # (Auto) 0.6 L [place] # (Auto) Baso # (Auto) Seg Neutrophils % 89.8 H Seg Neuts % (Manual) Lymphocytes % (Manual) Seg Neutrophils # Seg Neutrophils # Man Lymphocytes # (Manual) D-Dimer ABG pH POC ABG pO2 ABG pO2 ABG HCO3 ABG O2 Saturation ABG Base Excess ABG Oxyhemoglobin ABG Sodium ABG Chloride ABG Glucose Oxyhemoglobin Carboxyhemoglobin Sodium Potassium Chloride Carbon Dioxide BUN Creatinine Glucose 195 H POC Glucose Hemoglobin A1c Ferritin 254.3 H AST ALT Alkaline Phosphatase Lactate Dehydrogenase 359 H C-Reactive Protein 15.20 H Total Protein Albumin Arterial Blood Glucose Coronavirus (PCR) 04/17/21 04/17/21 04/17/21 03:50 08:26 08:26 WBC MCH MCHC RDW Lymph % (Auto) Lymph # (Auto) [place] # (Auto) Baso # (Auto) Seg Neutrophils % Seg Neuts % (Manual) Lymphocytes % (Manual) Seg Neutrophils # Seg Neutrophils # Man Lymphocytes # (Manual) D-Dimer 262.48 H ABG pH POC ABG pO2 ABG pO2 ABG HCO3 ABG O2 Saturation ABG Base Excess ABG Oxyhemoglobin ABG Sodium ABG Chloride ABG Glucose Oxyhemoglobin Carboxyhemoglobin Sodium Potassium Chloride Carbon Dioxide BUN 20 H Creatinine 0.5 L Glucose 249 H 225 H POC Glucose Hemoglobin A1c Ferritin AST ALT Alkaline Phosphatase Lactate Dehydrogenase 338 H C-Reactive Protein 17.20 H Total Protein Albumin 3.2 L Arterial Blood Glucose Coronavirus (PCR) 04/17/21 04/17/21 04/17/21 08:26 15:04 Unknown WBC MCH MCHC RDW Lymph % (Auto) Lymph # (Auto) [place] # (Auto) Baso # (Auto) Seg Neutrophils % Seg Neuts % (Manual) Lymphocytes % (Manual) Seg Neutrophils # Seg Neutrophils # Man Lymphocytes # (Manual) D-Dimer ABG pH POC ABG pO2 ABG pO2 ABG HCO3 ABG O2 Saturation ABG Base Excess ABG Oxyhemoglobin ABG Sodium ABG Chloride ABG Glucose Oxyhemoglobin Carboxyhemoglobin Sodium Potassium Chloride Carbon Dioxide BUN 20 H Creatinine 0.5 L Glucose 246 H POC Glucose Hemoglobin A1c Ferritin 392.0 H AST ALT Alkaline Phosphatase Lactate Dehydrogenase C-Reactive Protein Total Protein 8.3 H Albumin 3.1 L Arterial Blood Glucose Coronavirus (PCR) Positive A 04/18/21 04/18/21 04/18/21 05:06 05:06 07:36 WBC 11.6 H MCH MCHC RDW 16.1 H Lymph % (Auto) Lymph # (Auto) [place] # (Auto) Baso # (Auto) Seg Neutrophils % Seg Neuts % (Manual) Lymphocytes % (Manual) Seg Neutrophils # Seg Neutrophils # Man Lymphocytes # (Manual) D-Dimer ABG pH POC ABG pO2 ABG pO2 ABG HCO3 ABG O2 Saturation ABG Base Excess ABG Oxyhemoglobin ABG Sodium ABG Chloride ABG Glucose Oxyhemoglobin Carboxyhemoglobin Sodium Potassium 5.2 H Chloride Carbon Dioxide BUN 22 H Creatinine 0.5 L Glucose 315 H POC Glucose Hemoglobin A1c 8.5 H Ferritin AST ALT Alkaline Phosphatase Lactate Dehydrogenase C-Reactive Protein Total Protein Albumin 3.3 L Arterial Blood Glucose Coronavirus (PCR) 04/18/21 04/18/21 04/18/21 11:59 16:43 23:24 WBC MCH MCHC RDW Lymph % (Auto) Lymph # (Auto) [place] # (Auto) Baso # (Auto) Seg Neutrophils % Seg Neuts % (Manual) Lymphocytes % (Manual) Seg Neutrophils # Seg Neutrophils # Man Lymphocytes # (Manual) D-Dimer ABG pH POC ABG pO2 ABG pO2 ABG HCO3 ABG O2 Saturation ABG Base Excess ABG Oxyhemoglobin ABG Sodium ABG Chloride ABG Glucose Oxyhemoglobin Carboxyhemoglobin Sodium Potassium Chloride Carbon Dioxide BUN Creatinine Glucose POC Glucose 284 H 273 H 290 H Hemoglobin A1c Ferritin AST ALT Alkaline Phosphatase Lactate Dehydrogenase C-Reactive Protein Total Protein Albumin Arterial Blood Glucose Coronavirus (PCR) 04/19/21 04/19/21 04/19/21 04:19 04:19 08:10 WBC MCH MCHC RDW 15.7 H Lymph % (Auto) Lymph # (Auto) [place] # (Auto) Baso # (Auto) Seg Neutrophils % Seg Neuts % (Manual) Lymphocytes % (Manual) Seg Neutrophils # Seg Neutrophils # Man Lymphocytes # (Manual) D-Dimer ABG pH POC ABG pO2 ABG pO2 ABG HCO3 ABG O2 Saturation ABG Base Excess ABG Oxyhemoglobin ABG Sodium ABG Chloride ABG Glucose Oxyhemoglobin Carboxyhemoglobin Sodium Potassium Chloride Carbon Dioxide BUN 27 H Creatinine 0.4 L Glucose 184 H POC Glucose 194 H Hemoglobin A1c Ferritin AST ALT Alkaline Phosphatase Lactate Dehydrogenase C-Reactive Protein Total Protein Albumin 3.1 L Arterial Blood Glucose Coronavirus (PCR) 04/19/21 04/19/21 04/19/21 11:38 16:25 22:04 WBC MCH MCHC RDW Lymph % (Auto) Lymph # (Auto) [place] # (Auto) Baso # (Auto) Seg Neutrophils % Seg Neuts % (Manual) Lymphocytes % (Manual) Seg Neutrophils # Seg Neutrophils # Man Lymphocytes # (Manual) D-Dimer ABG pH POC ABG pO2 ABG pO2 ABG HCO3 ABG O2 Saturation ABG Base Excess ABG Oxyhemoglobin ABG Sodium ABG Chloride ABG Glucose Oxyhemoglobin Carboxyhemoglobin Sodium Potassium Chloride Carbon Dioxide BUN Creatinine Glucose POC Glucose 224 H 297 H 251 H Hemoglobin A1c Ferritin AST ALT Alkaline Phosphatase Lactate Dehydrogenase C-Reactive Protein Total Protein Albumin Arterial Blood Glucose Coronavirus (PCR) 04/20/21 04/20/21 04/20/21 05:28 08:43 16:21 WBC MCH MCHC RDW Lymph % (Auto) Lymph # (Auto) [place] # (Auto) Baso # (Auto) Seg Neutrophils % Seg Neuts % (Manual) Lymphocytes % (Manual) Seg Neutrophils # Seg Neutrophils # Man Lymphocytes # (Manual) D-Dimer ABG pH POC ABG pO2 ABG pO2 ABG HCO3 ABG O2 Saturation ABG Base Excess ABG Oxyhemoglobin ABG Sodium ABG Chloride ABG Glucose Oxyhemoglobin Carboxyhemoglobin Sodium Potassium Chloride Carbon Dioxide BUN 27 H Creatinine Glucose 192 H POC Glucose 173 H 253 H Hemoglobin A1c Ferritin AST ALT Alkaline Phosphatase Lactate Dehydrogenase C-Reactive Protein Total Protein Albumin 3.0 L Arterial Blood Glucose Coronavirus (PCR) 04/21/21 04/21/21 04/21/21 07:58 12:05 16:08 WBC MCH MCHC RDW Lymph % (Auto) Lymph # (Auto) [place] # (Auto) Baso # (Auto) Seg Neutrophils % Seg Neuts % (Manual) Lymphocytes % (Manual) Seg Neutrophils # Seg Neutrophils # Man Lymphocytes # (Manual) D-Dimer ABG pH POC ABG pO2 ABG pO2 ABG HCO3 ABG O2 Saturation ABG Base Excess ABG Oxyhemoglobin ABG Sodium ABG Chloride ABG Glucose Oxyhemoglobin Carboxyhemoglobin Sodium Potassium Chloride Carbon Dioxide BUN Creatinine Glucose POC Glucose 140 H 252 H 214 H Hemoglobin A1c Ferritin AST ALT Alkaline Phosphatase Lactate Dehydrogenase C-Reactive Protein Total Protein Albumin Arterial Blood Glucose Coronavirus (PCR) 04/21/21 04/22/21 04/22/21 21:42 08:37 12:01 WBC MCH MCHC RDW Lymph % (Auto) Lymph # (Auto) [place] # (Auto) Baso # (Auto) Seg Neutrophils % Seg Neuts % (Manual) Lymphocytes % (Manual) Seg Neutrophils # Seg Neutrophils # Man Lymphocytes # (Manual) D-Dimer ABG pH 7.457 H POC ABG pO2 49.4 L ABG pO2 ABG HCO3 ABG O2 Saturation ABG Base Excess ABG Oxyhemoglobin 85.6 L ABG Sodium ABG Chloride ABG Glucose 121 H Oxyhemoglobin Carboxyhemoglobin 0.3 L Sodium Potassium Chloride Carbon Dioxide BUN Creatinine Glucose POC Glucose 162 H 227 H Hemoglobin A1c Ferritin AST ALT Alkaline Phosphatase Lactate Dehydrogenase C-Reactive Protein Total Protein Albumin Arterial Blood Glucose 121 H Coronavirus (PCR) 04/22/21 04/22/21 04/23/21 16:26 22:23 04:52 WBC MCH MCHC RDW 15.7 H Lymph % (Auto) Lymph # (Auto) [place] # (Auto) Baso # (Auto) Seg Neutrophils % Seg Neuts % (Manual) Lymphocytes % (Manual) Seg Neutrophils # Seg Neutrophils # Man Lymphocytes # (Manual) D-Dimer ABG pH POC ABG pO2 ABG pO2 ABG HCO3 ABG O2 Saturation ABG Base Excess ABG Oxyhemoglobin ABG Sodium ABG Chloride ABG Glucose Oxyhemoglobin Carboxyhemoglobin Sodium Potassium Chloride Carbon Dioxide BUN Creatinine Glucose POC Glucose 200 H 136 H Hemoglobin A1c Ferritin AST ALT Alkaline Phosphatase Lactate Dehydrogenase C-Reactive Protein Total Protein Albumin Arterial Blood Glucose Coronavirus (PCR) 04/23/21 04/23/21 04/23/21 04:52 12:06 17:41 WBC MCH MCHC RDW Lymph % (Auto) Lymph # (Auto) [place] # (Auto) Baso # (Auto) Seg Neutrophils % Seg Neuts % (Manual) Lymphocytes % (Manual) Seg Neutrophils # Seg Neutrophils # Man Lymphocytes # (Manual) D-Dimer ABG pH POC ABG pO2 ABG pO2 ABG HCO3 ABG O2 Saturation ABG Base Excess ABG Oxyhemoglobin ABG Sodium ABG Chloride ABG Glucose Oxyhemoglobin Carboxyhemoglobin Sodium 136 L Potassium Chloride 97.7 L Carbon Dioxide BUN 23 H Creatinine Glucose 101 H POC Glucose 202 H 169 H Hemoglobin A1c Ferritin AST 46 H ALT Alkaline Phosphatase Lactate Dehydrogenase C-Reactive Protein Total Protein Albumin 3.3 L Arterial Blood Glucose Coronavirus (PCR) 04/23/21 04/24/21 04/24/21 23:08 05:17 08:38 WBC MCH MCHC RDW Lymph % (Auto) Lymph # (Auto) [place] # (Auto) Baso # (Auto) Seg Neutrophils % Seg Neuts % (Manual) Lymphocytes % (Manual) Seg Neutrophils # Seg Neutrophils # Man Lymphocytes # (Manual) D-Dimer ABG pH POC ABG pO2 ABG pO2 ABG HCO3 ABG O2 Saturation ABG Base Excess ABG Oxyhemoglobin ABG Sodium ABG Chloride ABG Glucose Oxyhemoglobin Carboxyhemoglobin Sodium Potassium Chloride Carbon Dioxide BUN Creatinine Glucose POC Glucose 111 H 108 H 126 H Hemoglobin A1c Ferritin AST ALT Alkaline Phosphatase Lactate Dehydrogenase C-Reactive Protein Total Protein Albumin Arterial Blood Glucose Coronavirus (PCR) 04/24/21 04/24/21 04/24/21 11:54 17:57 21:23 WBC MCH MCHC RDW Lymph % (Auto) Lymph # (Auto) [place] # (Auto) Baso # (Auto) Seg Neutrophils % Seg Neuts % (Manual) Lymphocytes % (Manual) Seg Neutrophils # Seg Neutrophils # Man Lymphocytes # (Manual) D-Dimer ABG pH POC ABG pO2 ABG pO2 ABG HCO3 ABG O2 Saturation ABG Base Excess ABG Oxyhemoglobin ABG Sodium ABG Chloride ABG Glucose Oxyhemoglobin Carboxyhemoglobin Sodium Potassium Chloride Carbon Dioxide BUN Creatinine Glucose POC Glucose 147 H 177 H 138 H Hemoglobin A1c Ferritin AST ALT Alkaline Phosphatase Lactate Dehydrogenase C-Reactive Protein Total Protein Albumin Arterial Blood Glucose Coronavirus (PCR) 04/25/21 04/25/21 04/25/21 07:06 11:23 15:43 WBC MCH MCHC RDW Lymph % (Auto) Lymph # (Auto) [place] # (Auto) Baso # (Auto) Seg Neutrophils % Seg Neuts % (Manual) Lymphocytes % (Manual) Seg Neutrophils # Seg Neutrophils # Man Lymphocytes # (Manual) D-Dimer ABG pH POC ABG pO2 ABG pO2 ABG HCO3 ABG O2 Saturation ABG Base Excess ABG Oxyhemoglobin ABG Sodium ABG Chloride ABG Glucose Oxyhemoglobin Carboxyhemoglobin Sodium Potassium Chloride Carbon Dioxide BUN Creatinine Glucose POC Glucose 147 H 169 H 227 H Hemoglobin A1c Ferritin AST ALT Alkaline Phosphatase Lactate Dehydrogenase C-Reactive Protein Total Protein Albumin Arterial Blood Glucose Coronavirus (PCR) 04/25/21 04/26/21 04/26/21 21:22 02:45 05:15 WBC MCH MCHC RDW Lymph % (Auto) Lymph # (Auto) [place] # (Auto) Baso # (Auto) Seg Neutrophils % Seg Neuts % (Manual) Lymphocytes % (Manual) Seg Neutrophils # Seg Neutrophils # Man Lymphocytes # (Manual) D-Dimer ABG pH POC ABG pO2 70.7 L ABG pO2 ABG HCO3 ABG O2 Saturation ABG Base Excess ABG Oxyhemoglobin 93.0 L ABG Sodium 132.7 L ABG Chloride ABG Glucose 115 H Oxyhemoglobin Carboxyhemoglobin Sodium Potassium Chloride 95.8 L Carbon Dioxide 32 H BUN 20 H Creatinine Glucose 102 H POC Glucose 196 H Hemoglobin A1c Ferritin AST ALT Alkaline Phosphatase Lactate Dehydrogenase C-Reactive Protein Total Protein Albumin Arterial Blood Glucose 115 H Coronavirus (PCR) 04/26/21 04/26/21 04/26/21 11:49 16:09 21:07 WBC MCH MCHC RDW Lymph % (Auto) Lymph # (Auto) [place] # (Auto) Baso # (Auto) Seg Neutrophils % Seg Neuts % (Manual) Lymphocytes % (Manual) Seg Neutrophils # Seg Neutrophils # Man Lymphocytes # (Manual) D-Dimer ABG pH POC ABG pO2 ABG pO2 ABG HCO3 ABG O2 Saturation ABG Base Excess ABG Oxyhemoglobin ABG Sodium ABG Chloride ABG Glucose Oxyhemoglobin Carboxyhemoglobin Sodium Potassium Chloride Carbon Dioxide BUN Creatinine Glucose POC Glucose 114 H 188 H 136 H Hemoglobin A1c Ferritin AST ALT Alkaline Phosphatase Lactate Dehydrogenase C-Reactive Protein Total Protein Albumin Arterial Blood Glucose Coronavirus (PCR) 04/27/21 04/27/21 04/28/21 17:34 22:12 08:26 WBC MCH MCHC RDW Lymph % (Auto) Lymph # (Auto) [place] # (Auto) Baso # (Auto) Seg Neutrophils % Seg Neuts % (Manual) Lymphocytes % (Manual) Seg Neutrophils # Seg Neutrophils # Man Lymphocytes # (Manual) D-Dimer ABG pH POC ABG pO2 ABG pO2 ABG HCO3 ABG O2 Saturation ABG Base Excess ABG Oxyhemoglobin ABG Sodium ABG Chloride ABG Glucose Oxyhemoglobin Carboxyhemoglobin Sodium Potassium Chloride Carbon Dioxide BUN Creatinine Glucose POC Glucose 128 H 159 H 69 L Hemoglobin A1c Ferritin AST ALT Alkaline Phosphatase Lactate Dehydrogenase C-Reactive Protein Total Protein Albumin Arterial Blood Glucose Coronavirus (PCR) 04/28/21 04/28/21 04/29/21 12:22 21:11 06:05 WBC MCH MCHC RDW Lymph % (Auto) Lymph # (Auto) [place] # (Auto) Baso # (Auto) Seg Neutrophils % Seg Neuts % (Manual) Lymphocytes % (Manual) Seg Neutrophils # Seg Neutrophils # Man Lymphocytes # (Manual) D-Dimer ABG pH POC ABG pO2 ABG pO2 ABG HCO3 ABG O2 Saturation ABG Base Excess ABG Oxyhemoglobin ABG Sodium ABG Chloride ABG Glucose Oxyhemoglobin Carboxyhemoglobin Sodium 132 L Potassium Chloride 94.4 L Carbon Dioxide BUN Creatinine 0.2 L D Glucose 140 H POC Glucose 141 H 171 H Hemoglobin A1c Ferritin AST ALT Alkaline Phosphatase Lactate Dehydrogenase C-Reactive Protein Total Protein Albumin Arterial Blood Glucose Coronavirus (PCR) 04/29/21 04/29/21 04/29/21 06:05 07:24 11:36 WBC MCH MCHC 35 H RDW 15.9 H Lymph % (Auto) Lymph # (Auto) [place] # (Auto) Baso # (Auto) Seg Neutrophils % Seg Neuts % (Manual) Lymphocytes % (Manual) Seg Neutrophils # Seg Neutrophils # Man Lymphocytes # (Manual) D-Dimer ABG pH POC ABG pO2 ABG pO2 ABG HCO3 ABG O2 Saturation ABG Base Excess ABG Oxyhemoglobin ABG Sodium ABG Chloride ABG Glucose Oxyhemoglobin Carboxyhemoglobin Sodium Potassium Chloride Carbon Dioxide BUN Creatinine Glucose POC Glucose 141 H 220 H Hemoglobin A1c Ferritin AST ALT Alkaline Phosphatase Lactate Dehydrogenase C-Reactive Protein Total Protein Albumin Arterial Blood Glucose Coronavirus (PCR) 04/29/21 04/29/21 04/29/21 14:23 15:30 17:06 WBC MCH MCHC RDW Lymph % (Auto) Lymph # (Auto) [place] # (Auto) Baso # (Auto) Seg Neutrophils % Seg Neuts % (Manual) Lymphocytes % (Manual) Seg Neutrophils # Seg Neutrophils # Man Lymphocytes # (Manual) D-Dimer ABG pH POC ABG pO2 ABG pO2 52.6 L ABG HCO3 ABG O2 Saturation 86.4 L ABG Base Excess ABG Oxyhemoglobin ABG Sodium ABG Chloride ABG Glucose Oxyhemoglobin 84.6 L Carboxyhemoglobin Sodium Potassium Chloride Carbon Dioxide BUN Creatinine Glucose POC Glucose 173 H 158 H Hemoglobin A1c Ferritin AST ALT Alkaline Phosphatase Lactate Dehydrogenase C-Reactive Protein Total Protein Albumin Arterial Blood Glucose Coronavirus (PCR) 04/29/21 04/30/21 04/30/21 21:27 07:16 08:00 WBC MCH MCHC RDW 16.1 H Lymph % (Auto) Lymph # (Auto) [place] # (Auto) Baso # (Auto) Seg Neutrophils % Seg Neuts % (Manual) Lymphocytes % (Manual) Seg Neutrophils # Seg Neutrophils # Man Lymphocytes # (Manual) D-Dimer ABG pH POC ABG pO2 ABG pO2 ABG HCO3 ABG O2 Saturation ABG Base Excess ABG Oxyhemoglobin ABG Sodium ABG Chloride ABG Glucose Oxyhemoglobin Carboxyhemoglobin Sodium Potassium Chloride Carbon Dioxide BUN Creatinine Glucose POC Glucose 244 H 175 H Hemoglobin A1c Ferritin AST ALT Alkaline Phosphatase Lactate Dehydrogenase C-Reactive Protein Total Protein Albumin Arterial Blood Glucose Coronavirus (PCR) 04/30/21 04/30/21 04/30/21 08:00 08:00 11:03 WBC MCH MCHC RDW Lymph % (Auto) Lymph # (Auto) [place] # (Auto) Baso # (Auto) Seg Neutrophils % Seg Neuts % (Manual) Lymphocytes % (Manual) Seg Neutrophils # Seg Neutrophils # Man Lymphocytes # (Manual) D-Dimer 1796.87 H ABG pH POC ABG pO2 ABG pO2 ABG HCO3 ABG O2 Saturation ABG Base Excess ABG Oxyhemoglobin ABG Sodium ABG Chloride ABG Glucose Oxyhemoglobin Carboxyhemoglobin Sodium 135 L Potassium Chloride 96.3 L Carbon Dioxide BUN Creatinine 0.2 L Glucose 153 H POC Glucose 183 H Hemoglobin A1c Ferritin AST 41 H ALT 76 H Alkaline Phosphatase 160 H Lactate Dehydrogenase 522 H C-Reactive Protein Total Protein 6.1 L Albumin 3.1 L Arterial Blood Glucose Coronavirus (PCR) 04/30/21 04/30/21 05/01/21 17:04 22:17 05:39 WBC MCH MCHC RDW Lymph % (Auto) Lymph # (Auto) [place] # (Auto) Baso # (Auto) Seg Neutrophils % Seg Neuts % (Manual) Lymphocytes % (Manual) Seg Neutrophils # Seg Neutrophils # Man Lymphocytes # (Manual) D-Dimer ABG pH POC ABG pO2 ABG pO2 ABG HCO3 ABG O2 Saturation ABG Base Excess ABG Oxyhemoglobin ABG Sodium ABG Chloride ABG Glucose Oxyhemoglobin Carboxyhemoglobin Sodium 133 L Potassium Chloride 92.1 L Carbon Dioxide BUN 24 H Creatinine 0.4 L D Glucose 269 H POC Glucose 167 H 208 H Hemoglobin A1c Ferritin AST ALT 66 H Alkaline Phosphatase 142 H Lactate Dehydrogenase C-Reactive Protein Total Protein Albumin 3.2 L Arterial Blood Glucose Coronavirus (PCR) 05/01/21 05/01/21 05/01/21 05:39 05:39 07:45 WBC MCH MCHC RDW 16.0 H Lymph % (Auto) Lymph # (Auto) [place] # (Auto) Baso # (Auto) Seg Neutrophils % Seg Neuts % (Manual) Lymphocytes % (Manual) Seg Neutrophils # Seg Neutrophils # Man Lymphocytes # (Manual) D-Dimer 3984.95 H ABG pH POC ABG pO2 ABG pO2 ABG HCO3 ABG O2 Saturation ABG Base Excess ABG Oxyhemoglobin ABG Sodium ABG Chloride ABG Glucose Oxyhemoglobin Carboxyhemoglobin Sodium Potassium Chloride Carbon Dioxide BUN Creatinine Glucose POC Glucose 229 H Hemoglobin A1c Ferritin AST ALT Alkaline Phosphatase Lactate Dehydrogenase C-Reactive Protein Total Protein Albumin Arterial Blood Glucose Coronavirus (PCR) 05/01/21 05/01/21 05/01/21 12:10 15:46 21:06 WBC MCH MCHC RDW Lymph % (Auto) Lymph # (Auto) [place] # (Auto) Baso # (Auto) Seg Neutrophils % Seg Neuts % (Manual) Lymphocytes % (Manual) Seg Neutrophils # Seg Neutrophils # Man Lymphocytes # (Manual) D-Dimer ABG pH POC ABG pO2 ABG pO2 ABG HCO3 ABG O2 Saturation ABG Base Excess ABG Oxyhemoglobin ABG Sodium ABG Chloride ABG Glucose Oxyhemoglobin Carboxyhemoglobin Sodium Potassium Chloride Carbon Dioxide BUN Creatinine Glucose POC Glucose 296 H 279 H 232 H Hemoglobin A1c Ferritin AST ALT Alkaline Phosphatase Lactate Dehydrogenase C-Reactive Protein Total Protein Albumin Arterial Blood Glucose Coronavirus (PCR) 05/02/21 05/02/21 05/02/21 04:55 04:55 04:55 WBC MCH MCHC RDW 16.1 H Lymph % (Auto) Lymph # (Auto) [place] # (Auto) Baso # (Auto) Seg Neutrophils % Seg Neuts % (Manual) Lymphocytes % (Manual) Seg Neutrophils # Seg Neutrophils # Man Lymphocytes # (Manual) D-Dimer 1401.08 H ABG pH POC ABG pO2 ABG pO2 ABG HCO3 ABG O2 Saturation ABG Base Excess ABG Oxyhemoglobin ABG Sodium ABG Chloride ABG Glucose Oxyhemoglobin Carboxyhemoglobin Sodium 131 L Potassium Chloride 95.5 L Carbon Dioxide BUN 20 H Creatinine 0.3 L Glucose 288 H POC Glucose Hemoglobin A1c Ferritin AST ALT Alkaline Phosphatase Lactate Dehydrogenase C-Reactive Protein Total Protein 6.0 L Albumin 3.1 L Arterial Blood Glucose Coronavirus (PCR) 05/02/21 05/02/21 05/02/21 07:53 11:45 15:25 WBC MCH MCHC RDW Lymph % (Auto) Lymph # (Auto) [place] # (Auto) Baso # (Auto) Seg Neutrophils % Seg Neuts % (Manual) Lymphocytes % (Manual) Seg Neutrophils # Seg Neutrophils # Man Lymphocytes # (Manual) D-Dimer ABG pH POC ABG pO2 ABG pO2 ABG HCO3 ABG O2 Saturation ABG Base Excess ABG Oxyhemoglobin ABG Sodium ABG Chloride ABG Glucose Oxyhemoglobin Carboxyhemoglobin Sodium Potassium Chloride Carbon Dioxide BUN Creatinine Glucose POC Glucose 180 H 228 H 275 H Hemoglobin A1c Ferritin AST ALT Alkaline Phosphatase Lactate Dehydrogenase C-Reactive Protein Total Protein Albumin Arterial Blood Glucose Coronavirus (PCR) 05/02/21 05/03/21 05/03/21 22:56 04:30 04:49 WBC MCH MCHC RDW Lymph % (Auto) Lymph # (Auto) [place] # (Auto) Baso # (Auto) Seg Neutrophils % Seg Neuts % (Manual) Lymphocytes % (Manual) Seg Neutrophils # Seg Neutrophils # Man Lymphocytes # (Manual) D-Dimer ABG pH 7.229 L POC ABG pO2 65.3 L ABG pO2 ABG HCO3 ABG O2 Saturation ABG Base Excess ABG Oxyhemoglobin 87.8 L ABG Sodium 133.0 L ABG Chloride 97.0 L ABG Glucose 403 H Oxyhemoglobin Carboxyhemoglobin Sodium 130 L Potassium Chloride 94.9 L Carbon Dioxide BUN 20 H Creatinine 0.5 L D Glucose 359 H POC Glucose 293 H Hemoglobin A1c Ferritin AST 54 H ALT 75 H Alkaline Phosphatase 138 H Lactate Dehydrogenase C-Reactive Protein Total Protein Albumin 3.6 L Arterial Blood Glucose 403 H Coronavirus (PCR) 05/03/21 05/03/21 05/03/21 05:27 11:26 17:57 WBC MCH MCHC RDW Lymph % (Auto) Lymph # (Auto) [place] # (Auto) Baso # (Auto) Seg Neutrophils % Seg Neuts % (Manual) Lymphocytes % (Manual) Seg Neutrophils # Seg Neutrophils # Man Lymphocytes # (Manual) D-Dimer ABG pH POC ABG pO2 ABG pO2 ABG HCO3 ABG O2 Saturation ABG Base Excess ABG Oxyhemoglobin ABG Sodium ABG Chloride ABG Glucose Oxyhemoglobin Carboxyhemoglobin Sodium Potassium Chloride Carbon Dioxide BUN Creatinine Glucose POC Glucose 361 H 297 H 226 H Hemoglobin A1c Ferritin AST ALT Alkaline Phosphatase Lactate Dehydrogenase C-Reactive Protein Total Protein Albumin Arterial Blood Glucose Coronavirus (PCR) 05/03/21 05/04/21 05/04/21 23:12 05:12 07:30 WBC MCH MCHC RDW Lymph % (Auto) Lymph # (Auto) [place] # (Auto) Baso # (Auto) Seg Neutrophils % Seg Neuts % (Manual) Lymphocytes % (Manual) Seg Neutrophils # Seg Neutrophils # Man Lymphocytes # (Manual) D-Dimer ABG pH POC ABG pO2 ABG pO2 ABG HCO3 ABG O2 Saturation ABG Base Excess ABG Oxyhemoglobin ABG Sodium ABG Chloride ABG Glucose Oxyhemoglobin Carboxyhemoglobin Sodium Potassium Chloride Carbon Dioxide BUN Creatinine Glucose POC Glucose 282 H 285 H 254 H Hemoglobin A1c Ferritin AST ALT Alkaline Phosphatase Lactate Dehydrogenase C-Reactive Protein Total Protein Albumin Arterial Blood Glucose Coronavirus (PCR) 05/04/21 05/04/21 05/04/21 08:58 11:45 16:07 WBC MCH MCHC RDW Lymph % (Auto) Lymph # (Auto) [place] # (Auto) Baso # (Auto) Seg Neutrophils % Seg Neuts % (Manual) Lymphocytes % (Manual) Seg Neutrophils # Seg Neutrophils # Man Lymphocytes # (Manual) D-Dimer ABG pH POC ABG pO2 ABG pO2 ABG HCO3 ABG O2 Saturation ABG Base Excess ABG Oxyhemoglobin ABG Sodium ABG Chloride ABG Glucose Oxyhemoglobin Carboxyhemoglobin Sodium 134 L Potassium Chloride Carbon Dioxide BUN 20 H Creatinine 0.3 L Glucose 267 H POC Glucose 244 H 297 H Hemoglobin A1c Ferritin AST ALT Alkaline Phosphatase Lactate Dehydrogenase C-Reactive Protein Total Protein 6.0 L Albumin 3.2 L Arterial Blood Glucose Coronavirus (PCR) 05/04/21 05/05/21 05/05/21 23:32 05:00 05:13 WBC MCH MCHC RDW Lymph % (Auto) Lymph # (Auto) [place] # (Auto) Baso # (Auto) Seg Neutrophils % Seg Neuts % (Manual) Lymphocytes % (Manual) Seg Neutrophils # Seg Neutrophils # Man Lymphocytes # (Manual) D-Dimer ABG pH POC ABG pO2 ABG pO2 ABG HCO3 ABG O2 Saturation ABG Base Excess ABG Oxyhemoglobin ABG Sodium ABG Chloride ABG Glucose Oxyhemoglobin Carboxyhemoglobin Sodium 132 L Potassium Chloride 96.4 L Carbon Dioxide BUN 22 H Creatinine 0.3 L Glucose 228 H POC Glucose 154 H 260 H Hemoglobin A1c Ferritin AST ALT 67 H Alkaline Phosphatase Lactate Dehydrogenase C-Reactive Protein Total Protein 6.1 L Albumin 3.2 L Arterial Blood Glucose Coronavirus (PCR) 05/05/21 05/05/21 05/05/21 11:32 17:49 23:07 WBC MCH MCHC RDW Lymph % (Auto) Lymph # (Auto) [place] # (Auto) Baso # (Auto) Seg Neutrophils % Seg Neuts % (Manual) Lymphocytes % (Manual) Seg Neutrophils # Seg Neutrophils # Man Lymphocytes # (Manual) D-Dimer ABG pH POC ABG pO2 ABG pO2 ABG HCO3 ABG O2 Saturation ABG Base Excess ABG Oxyhemoglobin ABG Sodium ABG Chloride ABG Glucose Oxyhemoglobin Carboxyhemoglobin Sodium Potassium Chloride Carbon Dioxide BUN Creatinine Glucose POC Glucose 279 H 308 H 213 H Hemoglobin A1c Ferritin AST ALT Alkaline Phosphatase Lactate Dehydrogenase C-Reactive Protein Total Protein Albumin Arterial Blood Glucose Coronavirus (PCR) 05/06/21 05/06/21 05/06/21 05:00 05:00 05:20 WBC MCH MCHC RDW 16.8 H Lymph % (Auto) Lymph # (Auto) [place] # (Auto) Baso # (Auto) Seg Neutrophils % Seg Neuts % (Manual) 99.0 H Lymphocytes % (Manual) Seg Neutrophils # Seg Neutrophils # Man 10.9 H Lymphocytes # (Manual) 0.0 L D-Dimer ABG pH POC ABG pO2 ABG pO2 ABG HCO3 ABG O2 Saturation ABG Base Excess ABG Oxyhemoglobin ABG Sodium ABG Chloride ABG Glucose Oxyhemoglobin Carboxyhemoglobin Sodium 133 L Potassium Chloride Carbon Dioxide BUN 21 H Creatinine 0.3 L Glucose 259 H POC Glucose 308 H Hemoglobin A1c Ferritin AST ALT Alkaline Phosphatase Lactate Dehydrogenase C-Reactive Protein Total Protein Albumin 3.2 L Arterial Blood Glucose Coronavirus (PCR) 05/06/21 05/06/21 05/06/21 11:24 17:54 21:32 WBC MCH MCHC RDW Lymph % (Auto) Lymph # (Auto) [place] # (Auto) Baso # (Auto) Seg Neutrophils % Seg Neuts % (Manual) Lymphocytes % (Manual) Seg Neutrophils # Seg Neutrophils # Man Lymphocytes # (Manual) D-Dimer ABG pH POC ABG pO2 ABG pO2 ABG HCO3 ABG O2 Saturation ABG Base Excess ABG Oxyhemoglobin ABG Sodium ABG Chloride ABG Glucose Oxyhemoglobin Carboxyhemoglobin Sodium Potassium Chloride Carbon Dioxide BUN Creatinine Glucose POC Glucose 262 H 124 H 246 H Hemoglobin A1c Ferritin AST ALT Alkaline Phosphatase Lactate Dehydrogenase C-Reactive Protein Total Protein Albumin Arterial Blood Glucose Coronavirus (PCR) 05/06/21 05/07/21 05/07/21 23:10 04:54 04:54 WBC MCH MCHC RDW Lymph % (Auto) Lymph # (Auto) [place] # (Auto) Baso # (Auto) Seg Neutrophils % Seg Neuts % (Manual) Lymphocytes % (Manual) Seg Neutrophils # Seg Neutrophils # Man Lymphocytes # (Manual) D-Dimer 1609.28 H ABG pH POC ABG pO2 ABG pO2 ABG HCO3 ABG O2 Saturation ABG Base Excess ABG Oxyhemoglobin ABG Sodium ABG Chloride ABG Glucose Oxyhemoglobin Carboxyhemoglobin Sodium 136 L Potassium Chloride Carbon Dioxide BUN 23 H Creatinine 0.3 L Glucose 110 H POC Glucose 249 H Hemoglobin A1c Ferritin AST ALT Alkaline Phosphatase Lactate Dehydrogenase C-Reactive Protein Total Protein 6.2 L Albumin 3.0 L Arterial Blood Glucose Coronavirus (PCR) 05/07/21 05/07/21 05/07/21 04:54 04:54 11:41 WBC MCH MCHC RDW Lymph % (Auto) Lymph # (Auto) [place] # (Auto) Baso # (Auto) Seg Neutrophils % Seg Neuts % (Manual) Lymphocytes % (Manual) Seg Neutrophils # Seg Neutrophils # Man Lymphocytes # (Manual) D-Dimer ABG pH POC ABG pO2 ABG pO2 ABG HCO3 ABG O2 Saturation ABG Base Excess ABG Oxyhemoglobin ABG Sodium ABG Chloride ABG Glucose Oxyhemoglobin Carboxyhemoglobin Sodium Potassium Chloride Carbon Dioxide BUN Creatinine Glucose POC Glucose 118 H Hemoglobin A1c Ferritin 296.1 H AST ALT Alkaline Phosphatase Lactate Dehydrogenase 724 H C-Reactive Protein Total Protein Albumin Arterial Blood Glucose Coronavirus (PCR) 05/07/21 05/07/21 05/08/21 16:43 22:34 06:44 WBC MCH MCHC RDW Lymph % (Auto) Lymph # (Auto) [place] # (Auto) Baso # (Auto) Seg Neutrophils % Seg Neuts % (Manual) Lymphocytes % (Manual) Seg Neutrophils # Seg Neutrophils # Man Lymphocytes # (Manual) D-Dimer ABG pH POC ABG pO2 ABG pO2 ABG HCO3 ABG O2 Saturation ABG Base Excess ABG Oxyhemoglobin ABG Sodium ABG Chloride ABG Glucose Oxyhemoglobin Carboxyhemoglobin Sodium Potassium Chloride Carbon Dioxide BUN Creatinine Glucose POC Glucose 159 H 233 H 235 H Hemoglobin A1c Ferritin AST ALT Alkaline Phosphatase Lactate Dehydrogenase C-Reactive Protein Total Protein Albumin Arterial Blood Glucose Coronavirus (PCR) 05/08/21 05/08/21 05/08/21 07:49 11:56 17:13 WBC MCH MCHC RDW Lymph % (Auto) Lymph # (Auto) [place] # (Auto) Baso # (Auto) Seg Neutrophils % Seg Neuts % (Manual) Lymphocytes % (Manual) Seg Neutrophils # Seg Neutrophils # Man Lymphocytes # (Manual) D-Dimer ABG pH POC ABG pO2 ABG pO2 ABG HCO3 ABG O2 Saturation ABG Base Excess ABG Oxyhemoglobin ABG Sodium ABG Chloride ABG Glucose Oxyhemoglobin Carboxyhemoglobin Sodium Potassium Chloride Carbon Dioxide BUN Creatinine Glucose POC Glucose 219 H 184 H 182 H Hemoglobin A1c Ferritin AST ALT Alkaline Phosphatase Lactate Dehydrogenase C-Reactive Protein Total Protein Albumin Arterial Blood Glucose Coronavirus (PCR) 05/08/21 05/09/21 05/09/21 23:35 05:20 05:20 WBC MCH MCHC RDW Lymph % (Auto) Lymph # (Auto) [place] # (Auto) Baso # (Auto) Seg Neutrophils % Seg Neuts % (Manual) Lymphocytes % (Manual) Seg Neutrophils # Seg Neutrophils # Man Lymphocytes # (Manual) D-Dimer 1003.87 H ABG pH POC ABG pO2 ABG pO2 ABG HCO3 ABG O2 Saturation ABG Base Excess ABG Oxyhemoglobin ABG Sodium ABG Chloride ABG Glucose Oxyhemoglobin Carboxyhemoglobin Sodium Potassium Chloride Carbon Dioxide BUN Creatinine Glucose POC Glucose 198 H Hemoglobin A1c Ferritin 378.7 H AST ALT Alkaline Phosphatase Lactate Dehydrogenase C-Reactive Protein Total Protein Albumin Arterial Blood Glucose Coronavirus (PCR) 05/09/21 05/09/21 05/09/21 05:20 06:04 12:53 WBC MCH MCHC RDW Lymph % (Auto) Lymph # (Auto) [place] # (Auto) Baso # (Auto) Seg Neutrophils % Seg Neuts % (Manual) Lymphocytes % (Manual) Seg Neutrophils # Seg Neutrophils # Man Lymphocytes # (Manual) D-Dimer ABG pH POC ABG pO2 ABG pO2 ABG HCO3 ABG O2 Saturation ABG Base Excess ABG Oxyhemoglobin ABG Sodium ABG Chloride ABG Glucose Oxyhemoglobin Carboxyhemoglobin Sodium Potassium Chloride Carbon Dioxide BUN Creatinine Glucose POC Glucose 159 H 180 H Hemoglobin A1c Ferritin AST ALT Alkaline Phosphatase Lactate Dehydrogenase 558 H C-Reactive Protein 2.40 H Total Protein Albumin Arterial Blood Glucose Coronavirus (PCR) 05/09/21 05/09/21 05/10/21 16:43 21:27 10:18 WBC MCH MCHC RDW Lymph % (Auto) Lymph # (Auto) [place] # (Auto) Baso # (Auto) Seg Neutrophils % Seg Neuts % (Manual) Lymphocytes % (Manual) Seg Neutrophils # Seg Neutrophils # Man Lymphocytes # (Manual) D-Dimer ABG pH POC ABG pO2 ABG pO2 ABG HCO3 ABG O2 Saturation ABG Base Excess ABG Oxyhemoglobin ABG Sodium ABG Chloride ABG Glucose Oxyhemoglobin Carboxyhemoglobin Sodium Potassium Chloride Carbon Dioxide BUN Creatinine Glucose POC Glucose 212 H 285 H 261 H Hemoglobin A1c Ferritin AST ALT Alkaline Phosphatase Lactate Dehydrogenase C-Reactive Protein Total Protein Albumin Arterial Blood Glucose Coronavirus (PCR) 05/10/21 05/10/21 05/11/21 17:58 18:02 00:29 WBC MCH MCHC RDW Lymph % (Auto) Lymph # (Auto) [place] # (Auto) Baso # (Auto) Seg Neutrophils % Seg Neuts % (Manual) Lymphocytes % (Manual) Seg Neutrophils # Seg Neutrophils # Man Lymphocytes # (Manual) D-Dimer ABG pH POC ABG pO2 ABG pO2 ABG HCO3 ABG O2 Saturation ABG Base Excess ABG Oxyhemoglobin ABG Sodium ABG Chloride ABG Glucose Oxyhemoglobin Carboxyhemoglobin Sodium Potassium Chloride Carbon Dioxide BUN Creatinine Glucose POC Glucose 213 H 179 H 149 H Hemoglobin A1c Ferritin AST ALT Alkaline Phosphatase Lactate Dehydrogenase C-Reactive Protein Total Protein Albumin Arterial Blood Glucose Coronavirus (PCR) 05/11/21 05/11/21 05/11/21 05:22 11:32 17:00 WBC 14.9 H MCH MCHC RDW 18.9 H Lymph % (Auto) 4.9 L Lymph # (Auto) 0.7 L [place] # (Auto) Baso # (Auto) 0.2 H Seg Neutrophils % Seg Neuts % (Manual) Lymphocytes % (Manual) Seg Neutrophils # 13.3 H Seg Neutrophils # Man Lymphocytes # (Manual) D-Dimer ABG pH POC ABG pO2 ABG pO2 ABG HCO3 ABG O2 Saturation ABG Base Excess ABG Oxyhemoglobin ABG Sodium ABG Chloride ABG Glucose Oxyhemoglobin Carboxyhemoglobin Sodium Potassium Chloride Carbon Dioxide BUN Creatinine Glucose POC Glucose 162 H 179 H Hemoglobin A1c Ferritin AST ALT Alkaline Phosphatase Lactate Dehydrogenase C-Reactive Protein Total Protein Albumin Arterial Blood Glucose Coronavirus (PCR) 05/11/21 05/11/21 05/11/21 17:00 17:33 22:03 WBC MCH MCHC RDW Lymph % (Auto) Lymph # (Auto) [place] # (Auto) Baso # (Auto) Seg Neutrophils % Seg Neuts % (Manual) Lymphocytes % (Manual) Seg Neutrophils # Seg Neutrophils # Man Lymphocytes # (Manual) D-Dimer ABG pH POC ABG pO2 ABG pO2 ABG HCO3 ABG O2 Saturation ABG Base Excess ABG Oxyhemoglobin ABG Sodium ABG Chloride ABG Glucose Oxyhemoglobin Carboxyhemoglobin Sodium 135 L Potassium Chloride 97.3 L Carbon Dioxide BUN 21 H Creatinine 0.3 L Glucose 133 H POC Glucose 140 H 282 H Hemoglobin A1c Ferritin AST ALT 60 H Alkaline Phosphatase Lactate Dehydrogenase C-Reactive Protein Total Protein Albumin 3.1 L Arterial Blood Glucose Coronavirus (PCR) 05/12/21 05/12/21 05/12/21 04:05 04:05 04:05 WBC MCH MCHC RDW 18.4 H Lymph % (Auto) Lymph # (Auto) [place] # (Auto) Baso # (Auto) Seg Neutrophils % Seg Neuts % (Manual) 94.0 H Lymphocytes % (Manual) 4.0 L Seg Neutrophils # Seg Neutrophils # Man Lymphocytes # (Manual) 0.3 L D-Dimer ABG pH POC ABG pO2 ABG pO2 ABG HCO3 ABG O2 Saturation ABG Base Excess ABG Oxyhemoglobin ABG Sodium ABG Chloride ABG Glucose Oxyhemoglobin Carboxyhemoglobin Sodium 136 L Potassium Chloride Carbon Dioxide BUN 18 H Creatinine 0.2 L Glucose 142 H POC Glucose Hemoglobin A1c Ferritin 350.7 H AST ALT Alkaline Phosphatase Lactate Dehydrogenase 546 H C-Reactive Protein Total Protein 6.1 L Albumin 3.0 L Arterial Blood Glucose Coronavirus (PCR) 05/12/21 05/12/21 05/12/21 05:11 11:17 16:27 WBC MCH MCHC RDW Lymph % (Auto) Lymph # (Auto) [place] # (Auto) Baso # (Auto) Seg Neutrophils % Seg Neuts % (Manual) Lymphocytes % (Manual) Seg Neutrophils # Seg Neutrophils # Man Lymphocytes # (Manual) D-Dimer ABG pH POC ABG pO2 ABG pO2 ABG HCO3 ABG O2 Saturation ABG Base Excess ABG Oxyhemoglobin ABG Sodium ABG Chloride ABG Glucose Oxyhemoglobin Carboxyhemoglobin Sodium Potassium Chloride Carbon Dioxide BUN Creatinine Glucose POC Glucose 152 H 190 H 261 H Hemoglobin A1c Ferritin AST ALT Alkaline Phosphatase Lactate Dehydrogenase C-Reactive Protein Total Protein Albumin Arterial Blood Glucose Coronavirus (PCR) 05/12/21 05/13/21 05/13/21 20:55 11:08 21:41 WBC MCH MCHC RDW Lymph % (Auto) Lymph # (Auto) [place] # (Auto) Baso # (Auto) Seg Neutrophils % Seg Neuts % (Manual) Lymphocytes % (Manual) Seg Neutrophils # Seg Neutrophils # Man Lymphocytes # (Manual) D-Dimer ABG pH POC ABG pO2 ABG pO2 ABG HCO3 ABG O2 Saturation ABG Base Excess ABG Oxyhemoglobin ABG Sodium ABG Chloride ABG Glucose Oxyhemoglobin Carboxyhemoglobin Sodium Potassium Chloride Carbon Dioxide BUN Creatinine Glucose POC Glucose 231 H 106 H 174 H Hemoglobin A1c Ferritin AST ALT Alkaline Phosphatase Lactate Dehydrogenase C-Reactive Protein Total Protein Albumin Arterial Blood Glucose Coronavirus (PCR) 05/14/21 05/14/21 05/14/21 00:53 02:23 06:06 WBC MCH MCHC RDW Lymph % (Auto) Lymph # (Auto) [place] # (Auto) Baso # (Auto) Seg Neutrophils % Seg Neuts % (Manual) Lymphocytes % (Manual) Seg Neutrophils # Seg Neutrophils # Man Lymphocytes # (Manual) D-Dimer ABG pH POC ABG pO2 ABG pO2 130.3 H ABG HCO3 30.6 H ABG O2 Saturation ABG Base Excess 4.9 H ABG Oxyhemoglobin ABG Sodium ABG Chloride ABG Glucose Oxyhemoglobin Carboxyhemoglobin Sodium Potassium Chloride Carbon Dioxide BUN Creatinine Glucose POC Glucose 229 H 119 H Hemoglobin A1c Ferritin AST ALT Alkaline Phosphatase Lactate Dehydrogenase C-Reactive Protein Total Protein Albumin Arterial Blood Glucose Coronavirus (PCR) 05/14/21 05/14/21 05/14/21 07:13 07:13 07:13 WBC MCH MCHC RDW Lymph % (Auto) Lymph # (Auto) [place] # (Auto) Baso # (Auto) Seg Neutrophils % Seg Neuts % (Manual) Lymphocytes % (Manual) Seg Neutrophils # Seg Neutrophils # Man Lymphocytes # (Manual) D-Dimer 712.80 H ABG pH POC ABG pO2 ABG pO2 ABG HCO3 ABG O2 Saturation ABG Base Excess ABG Oxyhemoglobin ABG Sodium ABG Chloride ABG Glucose Oxyhemoglobin Carboxyhemoglobin Sodium 133 L Potassium Chloride 95.5 L Carbon Dioxide 32 H BUN Creatinine 0.2 L Glucose 137 H POC Glucose Hemoglobin A1c Ferritin 283.5 H AST ALT 63 H Alkaline Phosphatase Lactate Dehydrogenase 563 H C-Reactive Protein Total Protein 6.1 L Albumin 3.0 L Arterial Blood Glucose Coronavirus (PCR) 05/14/21 05/14/21 05/14/21 12:21 15:33 21:50 WBC MCH MCHC RDW Lymph % (Auto) Lymph # (Auto) [place] # (Auto) Baso # (Auto) Seg Neutrophils % Seg Neuts % (Manual) Lymphocytes % (Manual) Seg Neutrophils # Seg Neutrophils # Man Lymphocytes # (Manual) D-Dimer ABG pH POC ABG pO2 ABG pO2 ABG HCO3 ABG O2 Saturation ABG Base Excess ABG Oxyhemoglobin ABG Sodium ABG Chloride ABG Glucose Oxyhemoglobin Carboxyhemoglobin Sodium Potassium Chloride Carbon Dioxide BUN Creatinine Glucose POC Glucose 143 H 204 H 202 H Hemoglobin A1c Ferritin AST ALT Alkaline Phosphatase Lactate Dehydrogenase C-Reactive Protein Total Protein Albumin Arterial Blood Glucose Coronavirus (PCR) 05/15/21 05/15/21 05/15/21 05:05 11:12 16:39 WBC MCH MCHC RDW Lymph % (Auto) Lymph # (Auto) [place] # (Auto) Baso # (Auto) Seg Neutrophils % Seg Neuts % (Manual) Lymphocytes % (Manual) Seg Neutrophils # Seg Neutrophils # Man Lymphocytes # (Manual) D-Dimer ABG pH POC ABG pO2 ABG pO2 ABG HCO3 ABG O2 Saturation ABG Base Excess ABG Oxyhemoglobin ABG Sodium ABG Chloride ABG Glucose Oxyhemoglobin Carboxyhemoglobin Sodium Potassium Chloride Carbon Dioxide BUN Creatinine Glucose POC Glucose 125 H 201 H 241 H Hemoglobin A1c Ferritin AST ALT Alkaline Phosphatase Lactate Dehydrogenase C-Reactive Protein Total Protein Albumin Arterial Blood Glucose Coronavirus (PCR) 05/15/21 05/16/21 05/16/21 21:31 05:04 10:40 WBC MCH MCHC RDW Lymph % (Auto) Lymph # (Auto) [place] # (Auto) Baso # (Auto) Seg Neutrophils % Seg Neuts % (Manual) Lymphocytes % (Manual) Seg Neutrophils # Seg Neutrophils # Man Lymphocytes # (Manual) D-Dimer ABG pH POC ABG pO2 ABG pO2 ABG HCO3 ABG O2 Saturation ABG Base Excess ABG Oxyhemoglobin ABG Sodium ABG Chloride ABG Glucose Oxyhemoglobin Carboxyhemoglobin Sodium Potassium Chloride Carbon Dioxide BUN Creatinine Glucose POC Glucose 234 H 123 H 231 H Hemoglobin A1c Ferritin AST ALT Alkaline Phosphatase Lactate Dehydrogenase C-Reactive Protein Total Protein Albumin Arterial Blood Glucose Coronavirus (PCR) 05/16/21 05/16/21 05/17/21 18:23 21:29 06:20 WBC MCH MCHC RDW 18.8 H Lymph % (Auto) 10.2 L Lymph # (Auto) 0.8 L [place] # (Auto) Baso # (Auto) Seg Neutrophils % 85.8 H Seg Neuts % (Manual) Lymphocytes % (Manual) Seg Neutrophils # Seg Neutrophils # Man Lymphocytes # (Manual) D-Dimer ABG pH POC ABG pO2 ABG pO2 ABG HCO3 ABG O2 Saturation ABG Base Excess ABG Oxyhemoglobin ABG Sodium ABG Chloride ABG Glucose Oxyhemoglobin Carboxyhemoglobin Sodium Potassium Chloride Carbon Dioxide BUN Creatinine Glucose POC Glucose 266 H 234 H Hemoglobin A1c Ferritin AST ALT Alkaline Phosphatase Lactate Dehydrogenase C-Reactive Protein Total Protein Albumin Arterial Blood Glucose Coronavirus (PCR) 05/17/21 05/17/21 05/17/21 06:20 11:06 16:36 WBC MCH MCHC RDW Lymph % (Auto) Lymph # (Auto) [place] # (Auto) Baso # (Auto) Seg Neutrophils % Seg Neuts % (Manual) Lymphocytes % (Manual) Seg Neutrophils # Seg Neutrophils # Man Lymphocytes # (Manual) D-Dimer ABG pH POC ABG pO2 ABG pO2 ABG HCO3 ABG O2 Saturation ABG Base Excess ABG Oxyhemoglobin ABG Sodium ABG Chloride ABG Glucose Oxyhemoglobin Carboxyhemoglobin Sodium Potassium Chloride Carbon Dioxide 33 H BUN Creatinine 0.2 L Glucose 101 H POC Glucose 209 H 180 H Hemoglobin A1c Ferritin AST ALT Alkaline Phosphatase Lactate Dehydrogenase C-Reactive Protein Total Protein Albumin Arterial Blood Glucose Coronavirus (PCR) 05/17/21 05/18/21 05/18/21 21:06 12:00 15:06 WBC MCH MCHC RDW Lymph % (Auto) Lymph # (Auto) [place] # (Auto) Baso # (Auto) Seg Neutrophils % Seg Neuts % (Manual) Lymphocytes % (Manual) Seg Neutrophils # Seg Neutrophils # Man Lymphocytes # (Manual) D-Dimer 874.02 H ABG pH POC ABG pO2 ABG pO2 ABG HCO3 ABG O2 Saturation ABG Base Excess ABG Oxyhemoglobin ABG Sodium ABG Chloride ABG Glucose Oxyhemoglobin Carboxyhemoglobin Sodium Potassium Chloride Carbon Dioxide BUN Creatinine Glucose POC Glucose 256 H 139 H Hemoglobin A1c Ferritin AST ALT Alkaline Phosphatase Lactate Dehydrogenase C-Reactive Protein Total Protein Albumin Arterial Blood Glucose Coronavirus (PCR) 05/18/21 05/18/21 05/18/21 15:06 15:06 16:08 WBC MCH MCHC RDW Lymph % (Auto) Lymph # (Auto) [place] # (Auto) Baso # (Auto) Seg Neutrophils % Seg Neuts % (Manual) Lymphocytes % (Manual) Seg Neutrophils # Seg Neutrophils # Man Lymphocytes # (Manual) D-Dimer ABG pH POC ABG pO2 ABG pO2 ABG HCO3 ABG O2 Saturation ABG Base Excess ABG Oxyhemoglobin ABG Sodium ABG Chloride ABG Glucose Oxyhemoglobin Carboxyhemoglobin Sodium Potassium Chloride Carbon Dioxide BUN Creatinine Glucose POC Glucose 178 H Hemoglobin A1c Ferritin 289.6 H AST ALT Alkaline Phosphatase Lactate Dehydrogenase 605 H C-Reactive Protein Total Protein Albumin Arterial Blood Glucose Coronavirus (PCR) 05/18/21 05/19/21 05/19/21 21:22 11:57 15:26 WBC MCH MCHC RDW Lymph % (Auto) Lymph # (Auto) [place] # (Auto) Baso # (Auto) Seg Neutrophils % Seg Neuts % (Manual) Lymphocytes % (Manual) Seg Neutrophils # Seg Neutrophils # Man Lymphocytes # (Manual) D-Dimer ABG pH POC ABG pO2 ABG pO2 ABG HCO3 ABG O2 Saturation ABG Base Excess ABG Oxyhemoglobin ABG Sodium ABG Chloride ABG Glucose Oxyhemoglobin Carboxyhemoglobin Sodium Potassium Chloride Carbon Dioxide BUN Creatinine Glucose POC Glucose 241 H 201 H 209 H Hemoglobin A1c Ferritin AST ALT Alkaline Phosphatase Lactate Dehydrogenase C-Reactive Protein Total Protein Albumin Arterial Blood Glucose Coronavirus (PCR) 05/19/21 05/20/21 05/20/21 20:59 07:38 08:01 WBC MCH MCHC RDW 19.7 H Lymph % (Auto) 8.3 L Lymph # (Auto) 0.8 L [place] # (Auto) Baso # (Auto) Seg Neutrophils % 88.6 H Seg Neuts % (Manual) Lymphocytes % (Manual) Seg Neutrophils # 8.4 H Seg Neutrophils # Man Lymphocytes # (Manual) D-Dimer ABG pH POC ABG pO2 ABG pO2 ABG HCO3 ABG O2 Saturation ABG Base Excess ABG Oxyhemoglobin ABG Sodium ABG Chloride ABG Glucose Oxyhemoglobin Carboxyhemoglobin Sodium Potassium Chloride Carbon Dioxide BUN Creatinine Glucose POC Glucose 226 H 130 H Hemoglobin A1c Ferritin AST ALT Alkaline Phosphatase Lactate Dehydrogenase C-Reactive Protein Total Protein Albumin Arterial Blood Glucose Coronavirus (PCR) 05/20/21 05/20/21 05/20/21 08:01 11:00 16:43 WBC MCH MCHC RDW Lymph % (Auto) Lymph # (Auto) [place] # (Auto) Baso # (Auto) Seg Neutrophils % Seg Neuts % (Manual) Lymphocytes % (Manual) Seg Neutrophils # Seg Neutrophils # Man Lymphocytes # (Manual) D-Dimer ABG pH POC ABG pO2 ABG pO2 ABG HCO3 ABG O2 Saturation ABG Base Excess ABG Oxyhemoglobin ABG Sodium ABG Chloride ABG Glucose Oxyhemoglobin Carboxyhemoglobin Sodium Potassium Chloride Carbon Dioxide BUN 18 H Creatinine 0.2 L Glucose 132 H POC Glucose 237 H 240 H Hemoglobin A1c Ferritin AST ALT Alkaline Phosphatase Lactate Dehydrogenase C-Reactive Protein Total Protein Albumin Arterial Blood Glucose Coronavirus (PCR) 05/20/21 05/21/21 05/21/21 21:21 07:35 11:32 WBC MCH MCHC RDW Lymph % (Auto) Lymph # (Auto) [place] # (Auto) Baso # (Auto) Seg Neutrophils % Seg Neuts % (Manual) Lymphocytes % (Manual) Seg Neutrophils # Seg Neutrophils # Man Lymphocytes # (Manual) D-Dimer ABG pH POC ABG pO2 ABG pO2 ABG HCO3 ABG O2 Saturation ABG Base Excess ABG Oxyhemoglobin ABG Sodium ABG Chloride ABG Glucose Oxyhemoglobin Carboxyhemoglobin Sodium Potassium Chloride Carbon Dioxide BUN Creatinine Glucose POC Glucose 241 H 162 H 171 H Hemoglobin A1c Ferritin AST ALT Alkaline Phosphatase Lactate Dehydrogenase C-Reactive Protein Total Protein Albumin Arterial Blood Glucose Coronavirus (PCR) 05/21/21 05/21/21 05/22/21 16:22 20:43 05:14 WBC MCH MCHC RDW Lymph % (Auto) Lymph # (Auto) [place] # (Auto) Baso # (Auto) Seg Neutrophils % Seg Neuts % (Manual) Lymphocytes % (Manual) Seg Neutrophils # Seg Neutrophils # Man Lymphocytes # (Manual) D-Dimer ABG pH POC ABG pO2 ABG pO2 ABG HCO3 ABG O2 Saturation ABG Base Excess ABG Oxyhemoglobin ABG Sodium ABG Chloride ABG Glucose Oxyhemoglobin Carboxyhemoglobin Sodium Potassium Chloride Carbon Dioxide BUN Creatinine Glucose POC Glucose 244 H 299 H 140 H Hemoglobin A1c Ferritin AST ALT Alkaline Phosphatase Lactate Dehydrogenase C-Reactive Protein Total Protein Albumin Arterial Blood Glucose Coronavirus (PCR) 05/22/21 05/22/21 05/22/21 08:45 11:54 16:15 WBC MCH MCHC RDW Lymph % (Auto) Lymph # (Auto) [place] # (Auto) Baso # (Auto) Seg Neutrophils % Seg Neuts % (Manual) Lymphocytes % (Manual) Seg Neutrophils # Seg Neutrophils # Man Lymphocytes # (Manual) D-Dimer ABG pH POC ABG pO2 ABG pO2 ABG HCO3 ABG O2 Saturation ABG Base Excess ABG Oxyhemoglobin ABG Sodium ABG Chloride ABG Glucose Oxyhemoglobin Carboxyhemoglobin Sodium Potassium Chloride Carbon Dioxide BUN Creatinine Glucose POC Glucose 133 H 265 H 221 H Hemoglobin A1c Ferritin AST ALT Alkaline Phosphatase Lactate Dehydrogenase C-Reactive Protein Total Protein Albumin Arterial Blood Glucose Coronavirus (PCR) 05/22/21 05/23/21 05/23/21 21:43 08:20 09:50 WBC MCH MCHC RDW Lymph % (Auto) Lymph # (Auto) [place] # (Auto) Baso # (Auto) Seg Neutrophils % Seg Neuts % (Manual) Lymphocytes % (Manual) Seg Neutrophils # Seg Neutrophils # Man Lymphocytes # (Manual) D-Dimer 910.38 H ABG pH POC ABG pO2 ABG pO2 ABG HCO3 ABG O2 Saturation ABG Base Excess ABG Oxyhemoglobin ABG Sodium ABG Chloride ABG Glucose Oxyhemoglobin Carboxyhemoglobin Sodium Potassium Chloride Carbon Dioxide BUN Creatinine Glucose POC Glucose 262 H 140 H Hemoglobin A1c Ferritin AST ALT Alkaline Phosphatase Lactate Dehydrogenase C-Reactive Protein Total Protein Albumin Arterial Blood Glucose Coronavirus (PCR) 05/23/21 05/23/21 05/23/21 09:50 09:50 10:52 WBC MCH MCHC RDW Lymph % (Auto) Lymph # (Auto) [place] # (Auto) Baso # (Auto) Seg Neutrophils % Seg Neuts % (Manual) Lymphocytes % (Manual) Seg Neutrophils # Seg Neutrophils # Man Lymphocytes # (Manual) D-Dimer ABG pH POC ABG pO2 ABG pO2 ABG HCO3 ABG O2 Saturation ABG Base Excess ABG Oxyhemoglobin ABG Sodium ABG Chloride ABG Glucose Oxyhemoglobin Carboxyhemoglobin Sodium Potassium Chloride Carbon Dioxide BUN Creatinine Glucose POC Glucose 241 H Hemoglobin A1c Ferritin 244.9 H AST ALT Alkaline Phosphatase Lactate Dehydrogenase 584 H C-Reactive Protein Total Protein Albumin Arterial Blood Glucose Coronavirus (PCR) 05/23/21 05/23/21 05/24/21 17:24 21:52 07:44 WBC MCH MCHC RDW Lymph % (Auto) Lymph # (Auto) [place] # (Auto) Baso # (Auto) Seg Neutrophils % Seg Neuts % (Manual) Lymphocytes % (Manual) Seg Neutrophils # Seg Neutrophils # Man Lymphocytes # (Manual) D-Dimer ABG pH POC ABG pO2 ABG pO2 ABG HCO3 ABG O2 Saturation ABG Base Excess ABG Oxyhemoglobin ABG Sodium ABG Chloride ABG Glucose Oxyhemoglobin Carboxyhemoglobin Sodium Potassium Chloride Carbon Dioxide BUN Creatinine Glucose POC Glucose 197 H 289 H 161 H Hemoglobin A1c Ferritin AST ALT Alkaline Phosphatase Lactate Dehydrogenase C-Reactive Protein Total Protein Albumin Arterial Blood Glucose Coronavirus (PCR) 05/24/21 05/24/21 05/24/21 11:17 17:51 21:26 WBC MCH MCHC RDW Lymph % (Auto) Lymph # (Auto) [place] # (Auto) Baso # (Auto) Seg Neutrophils % Seg Neuts % (Manual) Lymphocytes % (Manual) Seg Neutrophils # Seg Neutrophils # Man Lymphocytes # (Manual) D-Dimer ABG pH POC ABG pO2 ABG pO2 ABG HCO3 ABG O2 Saturation ABG Base Excess ABG Oxyhemoglobin ABG Sodium ABG Chloride ABG Glucose Oxyhemoglobin Carboxyhemoglobin Sodium Potassium Chloride Carbon Dioxide BUN Creatinine Glucose POC Glucose 308 H 175 H 198 H Hemoglobin A1c Ferritin AST ALT Alkaline Phosphatase Lactate Dehydrogenase C-Reactive Protein Total Protein Albumin Arterial Blood Glucose Coronavirus (PCR) 05/25/21 05/25/21 05/25/21 08:14 11:13 17:13 WBC MCH MCHC RDW Lymph % (Auto) Lymph # (Auto) [place] # (Auto) Baso # (Auto) Seg Neutrophils % Seg Neuts % (Manual) Lymphocytes % (Manual) Seg Neutrophils # Seg Neutrophils # Man Lymphocytes # (Manual) D-Dimer ABG pH POC ABG pO2 ABG pO2 ABG HCO3 ABG O2 Saturation ABG Base Excess ABG Oxyhemoglobin ABG Sodium ABG Chloride ABG Glucose Oxyhemoglobin Carboxyhemoglobin Sodium Potassium Chloride Carbon Dioxide BUN Creatinine Glucose POC Glucose 203 H 339 H 235 H Hemoglobin A1c Ferritin AST ALT Alkaline Phosphatase Lactate Dehydrogenase C-Reactive Protein Total Protein Albumin Arterial Blood Glucose Coronavirus (PCR) 05/25/21 05/26/21 05/26/21 21:03 07:33 11:19 WBC MCH MCHC RDW Lymph % (Auto) Lymph # (Auto) [place] # (Auto) Baso # (Auto) Seg Neutrophils % Seg Neuts % (Manual) Lymphocytes % (Manual) Seg Neutrophils # Seg Neutrophils # Man Lymphocytes # (Manual) D-Dimer ABG pH POC ABG pO2 ABG pO2 ABG HCO3 ABG O2 Saturation ABG Base Excess ABG Oxyhemoglobin ABG Sodium ABG Chloride ABG Glucose Oxyhemoglobin Carboxyhemoglobin Sodium Potassium Chloride Carbon Dioxide BUN Creatinine Glucose POC Glucose 263 H 156 H 288 H Hemoglobin A1c Ferritin AST ALT Alkaline Phosphatase Lactate Dehydrogenase C-Reactive Protein Total Protein Albumin Arterial Blood Glucose Coronavirus (PCR) 05/26/21 05/26/21 05/27/21 16:26 20:55 07:38 WBC MCH MCHC RDW Lymph % (Auto) Lymph # (Auto) [place] # (Auto) Baso # (Auto) Seg Neutrophils % Seg Neuts % (Manual) Lymphocytes % (Manual) Seg Neutrophils # Seg Neutrophils # Man Lymphocytes # (Manual) D-Dimer ABG pH POC ABG pO2 ABG pO2 ABG HCO3 ABG O2 Saturation ABG Base Excess ABG Oxyhemoglobin ABG Sodium ABG Chloride ABG Glucose Oxyhemoglobin Carboxyhemoglobin Sodium Potassium Chloride Carbon Dioxide BUN Creatinine Glucose POC Glucose 286 H 293 H 115 H Hemoglobin A1c Ferritin AST ALT Alkaline Phosphatase Lactate Dehydrogenase C-Reactive Protein Total Protein Albumin Arterial Blood Glucose Coronavirus (PCR) 05/27/21 05/27/21 05/27/21 11:46 15:58 21:02 WBC MCH MCHC RDW Lymph % (Auto) Lymph # (Auto) [place] # (Auto) Baso # (Auto) Seg Neutrophils % Seg Neuts % (Manual) Lymphocytes % (Manual) Seg Neutrophils # Seg Neutrophils # Man Lymphocytes # (Manual) D-Dimer ABG pH POC ABG pO2 ABG pO2 ABG HCO3 ABG O2 Saturation ABG Base Excess ABG Oxyhemoglobin ABG Sodium ABG Chloride ABG Glucose Oxyhemoglobin Carboxyhemoglobin Sodium Potassium Chloride Carbon Dioxide BUN Creatinine Glucose POC Glucose 260 H 318 H 246 H Hemoglobin A1c Ferritin AST ALT Alkaline Phosphatase Lactate Dehydrogenase C-Reactive Protein Total Protein Albumin Arterial Blood Glucose Coronavirus (PCR) 05/28/21 05/28/21 05/28/21 07:34 11:31 16:36 WBC MCH MCHC RDW Lymph % (Auto) Lymph # (Auto) [place] # (Auto) Baso # (Auto) Seg Neutrophils % Seg Neuts % (Manual) Lymphocytes % (Manual) Seg Neutrophils # Seg Neutrophils # Man Lymphocytes # (Manual) D-Dimer ABG pH POC ABG pO2 ABG pO2 ABG HCO3 ABG O2 Saturation ABG Base Excess ABG Oxyhemoglobin ABG Sodium ABG Chloride ABG Glucose Oxyhemoglobin Carboxyhemoglobin Sodium Potassium Chloride Carbon Dioxide BUN Creatinine Glucose POC Glucose 185 H 297 H 183 H Hemoglobin A1c Ferritin AST ALT Alkaline Phosphatase Lactate Dehydrogenase C-Reactive Protein Total Protein Albumin Arterial Blood Glucose Coronavirus (PCR) 05/28/21 05/29/21 05/29/21 21:19 07:34 11:19 WBC MCH MCHC RDW Lymph % (Auto) Lymph # (Auto) [place] # (Auto) Baso # (Auto) Seg Neutrophils % Seg Neuts % (Manual) Lymphocytes % (Manual) Seg Neutrophils # Seg Neutrophils # Man Lymphocytes # (Manual) D-Dimer ABG pH POC ABG pO2 ABG pO2 ABG HCO3 ABG O2 Saturation ABG Base Excess ABG Oxyhemoglobin ABG Sodium ABG Chloride ABG Glucose Oxyhemoglobin Carboxyhemoglobin Sodium Potassium Chloride Carbon Dioxide BUN Creatinine Glucose POC Glucose 274 H 139 H 293 H Hemoglobin A1c Ferritin AST ALT Alkaline Phosphatase Lactate Dehydrogenase C-Reactive Protein Total Protein Albumin Arterial Blood Glucose Coronavirus (PCR) 05/29/21 05/29/21 05/30/21 16:36 22:44 05:55 WBC MCH MCHC RDW 21.3 H Lymph % (Auto) 8.0 L Lymph # (Auto) 0.6 L [place] # (Auto) Baso # (Auto) Seg Neutrophils % 88.6 H Seg Neuts % (Manual) Lymphocytes % (Manual) Seg Neutrophils # Seg Neutrophils # Man Lymphocytes # (Manual) D-Dimer ABG pH POC ABG pO2 ABG pO2 ABG HCO3 ABG O2 Saturation ABG Base Excess ABG Oxyhemoglobin ABG Sodium ABG Chloride ABG Glucose Oxyhemoglobin Carboxyhemoglobin Sodium Potassium Chloride Carbon Dioxide BUN Creatinine Glucose POC Glucose 299 H 160 H Hemoglobin A1c Ferritin AST ALT Alkaline Phosphatase Lactate Dehydrogenase C-Reactive Protein Total Protein Albumin Arterial Blood Glucose Coronavirus (PCR) 05/30/21 05/30/21 05/30/21 05:55 08:04 11:13 WBC MCH MCHC RDW Lymph % (Auto) Lymph # (Auto) [place] # (Auto) Baso # (Auto) Seg Neutrophils % Seg Neuts % (Manual) Lymphocytes % (Manual) Seg Neutrophils # Seg Neutrophils # Man Lymphocytes # (Manual) D-Dimer ABG pH POC ABG pO2 ABG pO2 ABG HCO3 ABG O2 Saturation ABG Base Excess ABG Oxyhemoglobin ABG Sodium ABG Chloride ABG Glucose Oxyhemoglobin Carboxyhemoglobin Sodium Potassium Chloride Carbon Dioxide BUN 19 H Creatinine 0.2 L Glucose 209 H POC Glucose 157 H 275 H Hemoglobin A1c Ferritin AST ALT Alkaline Phosphatase Lactate Dehydrogenase C-Reactive Protein Total Protein Albumin Arterial Blood Glucose Coronavirus (PCR) 05/30/21 05/30/21 05/31/21 17:08 22:12 07:36 WBC MCH MCHC RDW Lymph % (Auto) Lymph # (Auto) [place] # (Auto) Baso # (Auto) Seg Neutrophils % Seg Neuts % (Manual) Lymphocytes % (Manual) Seg Neutrophils # Seg Neutrophils # Man Lymphocytes # (Manual) D-Dimer ABG pH POC ABG pO2 ABG pO2 ABG HCO3 ABG O2 Saturation ABG Base Excess ABG Oxyhemoglobin ABG Sodium ABG Chloride ABG Glucose Oxyhemoglobin Carboxyhemoglobin Sodium Potassium Chloride Carbon Dioxide BUN Creatinine Glucose POC Glucose 154 H 275 H 138 H Hemoglobin A1c Ferritin AST ALT Alkaline Phosphatase Lactate Dehydrogenase C-Reactive Protein Total Protein Albumin Arterial Blood Glucose Coronavirus (PCR) 05/31/21 05/31/21 05/31/21 11:17 16:55 21:25 WBC MCH MCHC RDW Lymph % (Auto) Lymph # (Auto) [place] # (Auto) Baso # (Auto) Seg Neutrophils % Seg Neuts % (Manual) Lymphocytes % (Manual) Seg Neutrophils # Seg Neutrophils # Man Lymphocytes # (Manual) D-Dimer ABG pH POC ABG pO2 ABG pO2 ABG HCO3 ABG O2 Saturation ABG Base Excess ABG Oxyhemoglobin ABG Sodium ABG Chloride ABG Glucose Oxyhemoglobin Carboxyhemoglobin Sodium Potassium Chloride Carbon Dioxide BUN Creatinine Glucose POC Glucose 258 H 215 H 318 H Hemoglobin A1c Ferritin AST ALT Alkaline Phosphatase Lactate Dehydrogenase C-Reactive Protein Total Protein Albumin Arterial Blood Glucose Coronavirus (PCR) 06/01/21 06/01/21 06/01/21 07:23 11:38 16:52 WBC MCH MCHC RDW Lymph % (Auto) Lymph # (Auto) [place] # (Auto) Baso # (Auto) Seg Neutrophils % Seg Neuts % (Manual) Lymphocytes % (Manual) Seg Neutrophils # Seg Neutrophils # Man Lymphocytes # (Manual) D-Dimer ABG pH POC ABG pO2 ABG pO2 ABG HCO3 ABG O2 Saturation ABG Base Excess ABG Oxyhemoglobin ABG Sodium ABG Chloride ABG Glucose Oxyhemoglobin Carboxyhemoglobin Sodium Potassium Chloride Carbon Dioxide BUN Creatinine Glucose POC Glucose 157 H 259 H 150 H Hemoglobin A1c Ferritin AST ALT Alkaline Phosphatase Lactate Dehydrogenase C-Reactive Protein Total Protein Albumin Arterial Blood Glucose Coronavirus (PCR) 06/01/21 06/02/21 06/02/21 23:16 05:34 05:34 WBC MCH MCHC RDW 21.3 H Lymph % (Auto) 9.6 L Lymph # (Auto) 0.6 L [place] # (Auto) Baso # (Auto) Seg Neutrophils % 86.2 H Seg Neuts % (Manual) Lymphocytes % (Manual) Seg Neutrophils # Seg Neutrophils # Man Lymphocytes # (Manual) D-Dimer ABG pH POC ABG pO2 ABG pO2 ABG HCO3 ABG O2 Saturation ABG Base Excess ABG Oxyhemoglobin ABG Sodium ABG Chloride ABG Glucose Oxyhemoglobin Carboxyhemoglobin Sodium 136 L Potassium Chloride Carbon Dioxide BUN Creatinine 0.2 L Glucose 186 H POC Glucose 247 H Hemoglobin A1c Ferritin AST ALT 69 H Alkaline Phosphatase Lactate Dehydrogenase C-Reactive Protein Total Protein 6.1 L Albumin 3.2 L Arterial Blood Glucose Coronavirus (PCR) 06/02/21 06/02/21 06/02/21 11:25 18:23 21:32 WBC MCH MCHC RDW Lymph % (Auto) Lymph # (Auto) [place] # (Auto) Baso # (Auto) Seg Neutrophils % Seg Neuts % (Manual) Lymphocytes % (Manual) Seg Neutrophils # Seg Neutrophils # Man Lymphocytes # (Manual) D-Dimer ABG pH POC ABG pO2 ABG pO2 ABG HCO3 ABG O2 Saturation ABG Base Excess ABG Oxyhemoglobin ABG Sodium ABG Chloride ABG Glucose Oxyhemoglobin Carboxyhemoglobin Sodium Potassium Chloride Carbon Dioxide BUN Creatinine Glucose POC Glucose 157 H 299 H 246 H Hemoglobin A1c Ferritin AST ALT Alkaline Phosphatase Lactate Dehydrogenase C-Reactive Protein Total Protein Albumin Arterial Blood Glucose Coronavirus (PCR) 06/03/21 06/03/21 06/03/21 08:12 12:21 17:31 WBC MCH MCHC RDW Lymph % (Auto) Lymph # (Auto) [place] # (Auto) Baso # (Auto) Seg Neutrophils % Seg Neuts % (Manual) Lymphocytes % (Manual) Seg Neutrophils # Seg Neutrophils # Man Lymphocytes # (Manual) D-Dimer ABG pH POC ABG pO2 ABG pO2 ABG HCO3 ABG O2 Saturation ABG Base Excess ABG Oxyhemoglobin ABG Sodium ABG Chloride ABG Glucose Oxyhemoglobin Carboxyhemoglobin Sodium Potassium Chloride Carbon Dioxide BUN Creatinine Glucose POC Glucose 153 H 302 H 252 H Hemoglobin A1c Ferritin AST ALT Alkaline Phosphatase Lactate Dehydrogenase C-Reactive Protein Total Protein Albumin Arterial Blood Glucose Coronavirus (PCR) 06/03/21 06/04/21 06/04/21 22:08 11:12 16:01 WBC MCH MCHC RDW Lymph % (Auto) Lymph # (Auto) [place] # (Auto) Baso # (Auto) Seg Neutrophils % Seg Neuts % (Manual) Lymphocytes % (Manual) Seg Neutrophils # Seg Neutrophils # Man Lymphocytes # (Manual) D-Dimer ABG pH POC ABG pO2 ABG pO2 ABG HCO3 ABG O2 Saturation ABG Base Excess ABG Oxyhemoglobin ABG Sodium ABG Chloride ABG Glucose Oxyhemoglobin Carboxyhemoglobin Sodium Potassium Chloride Carbon Dioxide BUN Creatinine Glucose POC Glucose 224 H 259 H 238 H Hemoglobin A1c Ferritin AST ALT Alkaline Phosphatase Lactate Dehydrogenase C-Reactive Protein Total Protein Albumin Arterial Blood Glucose Coronavirus (PCR) 06/04/21 06/05/21 06/05/21 21:26 05:26 05:26 WBC MCH MCHC RDW Lymph % (Auto) Lymph # (Auto) [place] # (Auto) Baso # (Auto) Seg Neutrophils % Seg Neuts % (Manual) Lymphocytes % (Manual) Seg Neutrophils # Seg Neutrophils # Man Lymphocytes # (Manual) D-Dimer 488.49 H ABG pH POC ABG pO2 ABG pO2 ABG HCO3 ABG O2 Saturation ABG Base Excess ABG Oxyhemoglobin ABG Sodium ABG Chloride ABG Glucose Oxyhemoglobin Carboxyhemoglobin Sodium Potassium Chloride Carbon Dioxide BUN Creatinine 0.2 L Glucose 198 H POC Glucose 257 H Hemoglobin A1c Ferritin AST ALT Alkaline Phosphatase Lactate Dehydrogenase 475 H C-Reactive Protein Total Protein Albumin Arterial Blood Glucose Coronavirus (PCR) 06/05/21 06/05/21 06/05/21 07:20 08:30 11:00 WBC MCH MCHC RDW Lymph % (Auto) Lymph # (Auto) [place] # (Auto) Baso # (Auto) Seg Neutrophils % Seg Neuts % (Manual) Lymphocytes % (Manual) Seg Neutrophils # Seg Neutrophils # Man Lymphocytes # (Manual) D-Dimer ABG pH POC ABG pO2 ABG pO2 ABG HCO3 ABG O2 Saturation ABG Base Excess ABG Oxyhemoglobin ABG Sodium ABG Chloride ABG Glucose Oxyhemoglobin Carboxyhemoglobin Sodium Potassium Chloride Carbon Dioxide BUN Creatinine Glucose POC Glucose 146 H 246 H Hemoglobin A1c Ferritin AST ALT Alkaline Phosphatase Lactate Dehydrogenase C-Reactive Protein Total Protein Albumin Arterial Blood Glucose Coronavirus (PCR) Positive A 06/05/21 06/05/21 06/06/21 16:50 22:30 07:57 WBC MCH MCHC RDW Lymph % (Auto) Lymph # (Auto) [place] # (Auto) Baso # (Auto) Seg Neutrophils % Seg Neuts % (Manual) Lymphocytes % (Manual) Seg Neutrophils # Seg Neutrophils # Man Lymphocytes # (Manual) D-Dimer ABG pH POC ABG pO2 ABG pO2 ABG HCO3 ABG O2 Saturation ABG Base Excess ABG Oxyhemoglobin ABG Sodium ABG Chloride ABG Glucose Oxyhemoglobin Carboxyhemoglobin Sodium Potassium Chloride Carbon Dioxide BUN Creatinine Glucose POC Glucose 240 H 174 H 120 H Hemoglobin A1c Ferritin AST ALT Alkaline Phosphatase Lactate Dehydrogenase C-Reactive Protein Total Protein Albumin Arterial Blood Glucose Coronavirus (PCR) 06/06/21 06/06/21 06/06/21 11:14 16:50 21:11 WBC MCH MCHC RDW Lymph % (Auto) Lymph # (Auto) [place] # (Auto) Baso # (Auto) Seg Neutrophils % Seg Neuts % (Manual) Lymphocytes % (Manual) Seg Neutrophils # Seg Neutrophils # Man Lymphocytes # (Manual) D-Dimer ABG pH POC ABG pO2 ABG pO2 ABG HCO3 ABG O2 Saturation ABG Base Excess ABG Oxyhemoglobin ABG Sodium ABG Chloride ABG Glucose Oxyhemoglobin Carboxyhemoglobin Sodium Potassium Chloride Carbon Dioxide BUN Creatinine Glucose POC Glucose 267 H 218 H 124 H Hemoglobin A1c Ferritin AST ALT Alkaline Phosphatase Lactate Dehydrogenase C-Reactive Protein Total Protein Albumin Arterial Blood Glucose Coronavirus (PCR) 06/07/21 06/07/21 06/08/21 11:58 15:59 07:59 WBC MCH MCHC RDW Lymph % (Auto) Lymph # (Auto) [place] # (Auto) Baso # (Auto) Seg Neutrophils % Seg Neuts % (Manual) Lymphocytes % (Manual) Seg Neutrophils # Seg Neutrophils # Man Lymphocytes # (Manual) D-Dimer ABG pH POC ABG pO2 ABG pO2 ABG HCO3 ABG O2 Saturation ABG Base Excess ABG Oxyhemoglobin ABG Sodium ABG Chloride ABG Glucose Oxyhemoglobin Carboxyhemoglobin Sodium Potassium Chloride Carbon Dioxide BUN Creatinine Glucose POC Glucose 219 H 208 H 192 H Hemoglobin A1c Ferritin AST ALT Alkaline Phosphatase Lactate Dehydrogenase C-Reactive Protein Total Protein Albumin Arterial Blood Glucose Coronavirus (PCR) 06/08/21 06/08/21 06/09/21 11:26 23:28 07:33 WBC MCH MCHC RDW Lymph % (Auto) Lymph # (Auto) [place] # (Auto) Baso # (Auto) Seg Neutrophils % Seg Neuts % (Manual) Lymphocytes % (Manual) Seg Neutrophils # Seg Neutrophils # Man Lymphocytes # (Manual) D-Dimer ABG pH POC ABG pO2 ABG pO2 ABG HCO3 ABG O2 Saturation ABG Base Excess ABG Oxyhemoglobin ABG Sodium ABG Chloride ABG Glucose Oxyhemoglobin Carboxyhemoglobin Sodium Potassium Chloride Carbon Dioxide BUN Creatinine Glucose POC Glucose 307 H 138 H 145 H Hemoglobin A1c Ferritin AST ALT Alkaline Phosphatase Lactate Dehydrogenase C-Reactive Protein Total Protein Albumin Arterial Blood Glucose Coronavirus (PCR) 06/09/21 06/09/21 06/09/21 11:01 15:47 21:43 WBC MCH MCHC RDW Lymph % (Auto) Lymph # (Auto) [place] # (Auto) Baso # (Auto) Seg Neutrophils % Seg Neuts % (Manual) Lymphocytes % (Manual) Seg Neutrophils # Seg Neutrophils # Man Lymphocytes # (Manual) D-Dimer ABG pH POC ABG pO2 ABG pO2 ABG HCO3 ABG O2 Saturation ABG Base Excess ABG Oxyhemoglobin ABG Sodium ABG Chloride ABG Glucose Oxyhemoglobin Carboxyhemoglobin Sodium Potassium Chloride Carbon Dioxide BUN Creatinine Glucose POC Glucose 266 H 305 H 223 H Hemoglobin A1c Ferritin AST ALT Alkaline Phosphatase Lactate Dehydrogenase C-Reactive Protein Total Protein Albumin Arterial Blood Glucose Coronavirus (PCR) 06/10/21 06/10/21 06/10/21 08:27 12:10 17:45 WBC MCH MCHC RDW Lymph % (Auto) Lymph # (Auto) [place] # (Auto) Baso # (Auto) Seg Neutrophils % Seg Neuts % (Manual) Lymphocytes % (Manual) Seg Neutrophils # Seg Neutrophils # Man Lymphocytes # (Manual) D-Dimer ABG pH POC ABG pO2 ABG pO2 ABG HCO3 ABG O2 Saturation ABG Base Excess ABG Oxyhemoglobin ABG Sodium ABG Chloride ABG Glucose Oxyhemoglobin Carboxyhemoglobin Sodium Potassium Chloride Carbon Dioxide BUN Creatinine Glucose POC Glucose 174 H 306 H 210 H Hemoglobin A1c Ferritin AST ALT Alkaline Phosphatase Lactate Dehydrogenase C-Reactive Protein Total Protein Albumin Arterial Blood Glucose Coronavirus (PCR) 06/10/21 06/11/21 06/11/21 21:45 09:38 09:38 WBC MCH MCHC RDW 20.9 H Lymph % (Auto) Lymph # (Auto) [place] # (Auto) Baso # (Auto) Seg Neutrophils % Seg Neuts % (Manual) Lymphocytes % (Manual) Seg Neutrophils # Seg Neutrophils # Man Lymphocytes # (Manual) D-Dimer ABG pH POC ABG pO2 ABG pO2 ABG HCO3 ABG O2 Saturation ABG Base Excess ABG Oxyhemoglobin ABG Sodium ABG Chloride ABG Glucose Oxyhemoglobin Carboxyhemoglobin Sodium 135 L Potassium Chloride 90.8 L Carbon Dioxide 36 H BUN 29 H Creatinine 0.2 L Glucose 258 H POC Glucose 262 H Hemoglobin A1c Ferritin AST ALT Alkaline Phosphatase Lactate Dehydrogenase C-Reactive Protein Total Protein Albumin Arterial Blood Glucose Coronavirus (PCR) 06/11/21 06/11/21 06/11/21 11:20 15:49 22:57 WBC MCH MCHC RDW Lymph % (Auto) Lymph # (Auto) [place] # (Auto) Baso # (Auto) Seg Neutrophils % Seg Neuts % (Manual) Lymphocytes % (Manual) Seg Neutrophils # Seg Neutrophils # Man Lymphocytes # (Manual) D-Dimer ABG pH POC ABG pO2 ABG pO2 ABG HCO3 ABG O2 Saturation ABG Base Excess ABG Oxyhemoglobin ABG Sodium ABG Chloride ABG Glucose Oxyhemoglobin Carboxyhemoglobin Sodium Potassium Chloride Carbon Dioxide BUN Creatinine Glucose POC Glucose 269 H 206 H 211 H Hemoglobin A1c Ferritin AST ALT Alkaline Phosphatase Lactate Dehydrogenase C-Reactive Protein Total Protein Albumin Arterial Blood Glucose Coronavirus (PCR) 06/12/21 06/12/21 06/12/21 08:07 11:24 18:08 WBC MCH MCHC RDW Lymph % (Auto) Lymph # (Auto) [place] # (Auto) Baso # (Auto) Seg Neutrophils % Seg Neuts % (Manual) Lymphocytes % (Manual) Seg Neutrophils # Seg Neutrophils # Man Lymphocytes # (Manual) D-Dimer ABG pH POC ABG pO2 ABG pO2 ABG HCO3 ABG O2 Saturation ABG Base Excess ABG Oxyhemoglobin ABG Sodium ABG Chloride ABG Glucose Oxyhemoglobin Carboxyhemoglobin Sodium Potassium Chloride Carbon Dioxide BUN Creatinine Glucose POC Glucose 149 H 270 H 166 H Hemoglobin A1c Ferritin AST ALT Alkaline Phosphatase Lactate Dehydrogenase C-Reactive Protein Total Protein Albumin Arterial Blood Glucose Coronavirus (PCR) 06/12/21 06/13/21 06/13/21 20:22 07:50 11:18 WBC MCH MCHC RDW Lymph % (Auto) Lymph # (Auto) [place] # (Auto) Baso # (Auto) Seg Neutrophils % Seg Neuts % (Manual) Lymphocytes % (Manual) Seg Neutrophils # Seg Neutrophils # Man Lymphocytes # (Manual) D-Dimer ABG pH POC ABG pO2 ABG pO2 ABG HCO3 ABG O2 Saturation ABG Base Excess ABG Oxyhemoglobin ABG Sodium ABG Chloride ABG Glucose Oxyhemoglobin Carboxyhemoglobin Sodium Potassium Chloride Carbon Dioxide BUN Creatinine Glucose POC Glucose 155 H 163 H 293 H Hemoglobin A1c Ferritin AST ALT Alkaline Phosphatase Lactate Dehydrogenase C-Reactive Protein Total Protein Albumin Arterial Blood Glucose Coronavirus (PCR) 06/13/21 06/13/21 06/14/21 16:41 21:00 07:41 WBC MCH MCHC RDW Lymph % (Auto) Lymph # (Auto) [place] # (Auto) Baso # (Auto) Seg Neutrophils % Seg Neuts % (Manual) Lymphocytes % (Manual) Seg Neutrophils # Seg Neutrophils # Man Lymphocytes # (Manual) D-Dimer ABG pH POC ABG pO2 ABG pO2 ABG HCO3 ABG O2 Saturation ABG Base Excess ABG Oxyhemoglobin ABG Sodium ABG Chloride ABG Glucose Oxyhemoglobin Carboxyhemoglobin Sodium Potassium Chloride Carbon Dioxide BUN Creatinine Glucose POC Glucose 232 H 183 H 52 L Hemoglobin A1c Ferritin AST ALT Alkaline Phosphatase Lactate Dehydrogenase C-Reactive Protein Total Protein Albumin Arterial Blood Glucose Coronavirus (PCR) 06/14/21 06/14/21 06/14/21 11:44 17:44 21:44 WBC MCH MCHC RDW Lymph % (Auto) Lymph # (Auto) [place] # (Auto) Baso # (Auto) Seg Neutrophils % Seg Neuts % (Manual) Lymphocytes % (Manual) Seg Neutrophils # Seg Neutrophils # Man Lymphocytes # (Manual) D-Dimer ABG pH POC ABG pO2 ABG pO2 ABG HCO3 ABG O2 Saturation ABG Base Excess ABG Oxyhemoglobin ABG Sodium ABG Chloride ABG Glucose Oxyhemoglobin Carboxyhemoglobin Sodium Potassium Chloride Carbon Dioxide BUN Creatinine Glucose POC Glucose 205 H 293 H 288 H Hemoglobin A1c Ferritin AST ALT Alkaline Phosphatase Lactate Dehydrogenase C-Reactive Protein Total Protein Albumin Arterial Blood Glucose Coronavirus (PCR) 06/15/21 06/15/21 06/15/21 08:00 08:00 11:40 WBC MCH 33 H MCHC 35 H RDW 20.3 H Lymph % (Auto) Lymph # (Auto) [place] # (Auto) Baso # (Auto) Seg Neutrophils % Seg Neuts % (Manual) Lymphocytes % (Manual) Seg Neutrophils # Seg Neutrophils # Man Lymphocytes # (Manual) D-Dimer ABG pH POC ABG pO2 ABG pO2 ABG HCO3 ABG O2 Saturation ABG Base Excess ABG Oxyhemoglobin ABG Sodium ABG Chloride ABG Glucose Oxyhemoglobin Carboxyhemoglobin Sodium Potassium 3.2 L Chloride 95.3 L Carbon Dioxide 32 H BUN 23 H Creatinine 0.2 L Glucose 103 H POC Glucose 204 H Hemoglobin A1c Ferritin AST ALT Alkaline Phosphatase Lactate Dehydrogenase C-Reactive Protein Total Protein Albumin Arterial Blood Glucose Coronavirus (PCR) 06/15/21 06/15/21 06/16/21 16:17 22:00 11:43 WBC MCH MCHC RDW Lymph % (Auto) Lymph # (Auto) [place] # (Auto) Baso # (Auto) Seg Neutrophils % Seg Neuts % (Manual) Lymphocytes % (Manual) Seg Neutrophils # Seg Neutrophils # Man Lymphocytes # (Manual) D-Dimer ABG pH POC ABG pO2 ABG pO2 ABG HCO3 ABG O2 Saturation ABG Base Excess ABG Oxyhemoglobin ABG Sodium ABG Chloride ABG Glucose Oxyhemoglobin Carboxyhemoglobin Sodium Potassium Chloride Carbon Dioxide BUN Creatinine Glucose POC Glucose 295 H 233 H 201 H Hemoglobin A1c Ferritin AST ALT Alkaline Phosphatase Lactate Dehydrogenase C-Reactive Protein Total Protein Albumin Arterial Blood Glucose Coronavirus (PCR) 06/16/21 06/16/21 06/17/21 17:21 21:27 07:12 WBC MCH MCHC RDW Lymph % (Auto) Lymph # (Auto) [place] # (Auto) Baso # (Auto) Seg Neutrophils % Seg Neuts % (Manual) Lymphocytes % (Manual) Seg Neutrophils # Seg Neutrophils # Man Lymphocytes # (Manual) D-Dimer ABG pH POC ABG pO2 ABG pO2 ABG HCO3 ABG O2 Saturation ABG Base Excess ABG Oxyhemoglobin ABG Sodium ABG Chloride ABG Glucose Oxyhemoglobin Carboxyhemoglobin Sodium Potassium Chloride Carbon Dioxide BUN Creatinine Glucose POC Glucose 299 H 290 H 67 L Hemoglobin A1c Ferritin AST ALT Alkaline Phosphatase Lactate Dehydrogenase C-Reactive Protein Total Protein Albumin Arterial Blood Glucose Coronavirus (PCR) 06/17/21 06/17/21 06/17/21 11:53 17:02 22:25 WBC MCH MCHC RDW Lymph % (Auto) Lymph # (Auto) [place] # (Auto) Baso # (Auto) Seg Neutrophils % Seg Neuts % (Manual) Lymphocytes % (Manual) Seg Neutrophils # Seg Neutrophils # Man Lymphocytes # (Manual) D-Dimer ABG pH POC ABG pO2 ABG pO2 ABG HCO3 ABG O2 Saturation ABG Base Excess ABG Oxyhemoglobin ABG Sodium ABG Chloride ABG Glucose Oxyhemoglobin Carboxyhemoglobin Sodium Potassium Chloride Carbon Dioxide BUN Creatinine Glucose POC Glucose 199 H 362 H 235 H Hemoglobin A1c Ferritin AST ALT Alkaline Phosphatase Lactate Dehydrogenase C-Reactive Protein Total Protein Albumin Arterial Blood Glucose Coronavirus (PCR) 06/18/21 06/18/21 06/18/21 08:00 11:48 16:40 WBC MCH MCHC RDW Lymph % (Auto) Lymph # (Auto) [place] # (Auto) Baso # (Auto) Seg Neutrophils % Seg Neuts % (Manual) Lymphocytes % (Manual) Seg Neutrophils # Seg Neutrophils # Man Lymphocytes # (Manual) D-Dimer ABG pH POC ABG pO2 ABG pO2 ABG HCO3 ABG O2 Saturation ABG Base Excess ABG Oxyhemoglobin ABG Sodium ABG Chloride ABG Glucose Oxyhemoglobin Carboxyhemoglobin Sodium Potassium Chloride Carbon Dioxide BUN Creatinine Glucose POC Glucose 62 L 211 H 305 H Hemoglobin A1c Ferritin AST ALT Alkaline Phosphatase Lactate Dehydrogenase C-Reactive Protein Total Protein Albumin Arterial Blood Glucose Coronavirus (PCR) 06/18/21 06/19/21 06/19/21 21:26 07:27 11:32 WBC MCH MCHC RDW Lymph % (Auto) Lymph # (Auto) [place] # (Auto) Baso # (Auto) Seg Neutrophils % Seg Neuts % (Manual) Lymphocytes % (Manual) Seg Neutrophils # Seg Neutrophils # Man Lymphocytes # (Manual) D-Dimer ABG pH POC ABG pO2 ABG pO2 ABG HCO3 ABG O2 Saturation ABG Base Excess ABG Oxyhemoglobin ABG Sodium ABG Chloride ABG Glucose Oxyhemoglobin Carboxyhemoglobin Sodium Potassium Chloride Carbon Dioxide BUN Creatinine Glucose POC Glucose 149 H 60 L 208 H Hemoglobin A1c Ferritin AST ALT Alkaline Phosphatase Lactate Dehydrogenase C-Reactive Protein Total Protein Albumin Arterial Blood Glucose Coronavirus (PCR) 06/19/21 06/19/21 06/20/21 16:06 22:28 07:48 WBC MCH MCHC RDW Lymph % (Auto) Lymph # (Auto) [place] # (Auto) Baso # (Auto) Seg Neutrophils % Seg Neuts % (Manual) Lymphocytes % (Manual) Seg Neutrophils # Seg Neutrophils # Man Lymphocytes # (Manual) D-Dimer ABG pH POC ABG pO2 ABG pO2 ABG HCO3 ABG O2 Saturation ABG Base Excess ABG Oxyhemoglobin ABG Sodium ABG Chloride ABG Glucose Oxyhemoglobin Carboxyhemoglobin Sodium Potassium Chloride Carbon Dioxide BUN Creatinine Glucose POC Glucose 266 H 166 H 58 L Hemoglobin A1c Ferritin AST ALT Alkaline Phosphatase Lactate Dehydrogenase C-Reactive Protein Total Protein Albumin Arterial Blood Glucose Coronavirus (PCR) 06/20/21 06/20/21 06/20/21 09:09 11:04 16:01 WBC MCH MCHC RDW Lymph % (Auto) Lymph # (Auto) [place] # (Auto) Baso # (Auto) Seg Neutrophils % Seg Neuts % (Manual) Lymphocytes % (Manual) Seg Neutrophils # Seg Neutrophils # Man Lymphocytes # (Manual) D-Dimer ABG pH POC ABG pO2 ABG pO2 ABG HCO3 ABG O2 Saturation ABG Base Excess ABG Oxyhemoglobin ABG Sodium ABG Chloride ABG Glucose Oxyhemoglobin Carboxyhemoglobin Sodium Potassium Chloride Carbon Dioxide BUN Creatinine Glucose POC Glucose 146 H 225 H 330 H Hemoglobin A1c Ferritin AST ALT Alkaline Phosphatase Lactate Dehydrogenase C-Reactive Protein Total Protein Albumin Arterial Blood Glucose Coronavirus (PCR) 06/20/21 06/21/21 06/21/21 20:46 06:45 06:45 WBC MCH MCHC RDW 20.0 H Lymph % (Auto) Lymph # (Auto) [place] # (Auto) Baso # (Auto) Seg Neutrophils % Seg Neuts % (Manual) Lymphocytes % (Manual) Seg Neutrophils # Seg Neutrophils # Man Lymphocytes # (Manual) D-Dimer ABG pH POC ABG pO2 ABG pO2 ABG HCO3 ABG O2 Saturation ABG Base Excess ABG Oxyhemoglobin ABG Sodium ABG Chloride ABG Glucose Oxyhemoglobin Carboxyhemoglobin Sodium Potassium 2.9 L* Chloride 95.0 L Carbon Dioxide 31 H BUN 23 H Creatinine 0.2 L Glucose 45 L POC Glucose 215 H Hemoglobin A1c Ferritin AST ALT Alkaline Phosphatase Lactate Dehydrogenase C-Reactive Protein Total Protein Albumin Arterial Blood Glucose Coronavirus (PCR) 06/21/21 06/21/21 06/21/21 07:38 09:06 12:40 WBC MCH MCHC RDW Lymph % (Auto) Lymph # (Auto) [place] # (Auto) Baso # (Auto) Seg Neutrophils % Seg Neuts % (Manual) Lymphocytes % (Manual) Seg Neutrophils # Seg Neutrophils # Man Lymphocytes # (Manual) D-Dimer ABG pH POC ABG pO2 ABG pO2 ABG HCO3 ABG O2 Saturation ABG Base Excess ABG Oxyhemoglobin ABG Sodium ABG Chloride ABG Glucose Oxyhemoglobin Carboxyhemoglobin Sodium Potassium Chloride Carbon Dioxide BUN Creatinine Glucose POC Glucose 50 L 196 H 205 H Hemoglobin A1c Ferritin AST ALT Alkaline Phosphatase Lactate Dehydrogenase C-Reactive Protein Total Protein Albumin Arterial Blood Glucose Coronavirus (PCR) 06/21/21 06/22/21 06/22/21 21:36 06:25 07:15 WBC MCH MCHC RDW Lymph % (Auto) Lymph # (Auto) [place] # (Auto) Baso # (Auto) Seg Neutrophils % Seg Neuts % (Manual) Lymphocytes % (Manual) Seg Neutrophils # Seg Neutrophils # Man Lymphocytes # (Manual) D-Dimer ABG pH POC ABG pO2 ABG pO2 ABG HCO3 ABG O2 Saturation ABG Base Excess ABG Oxyhemoglobin ABG Sodium ABG Chloride ABG Glucose Oxyhemoglobin Carboxyhemoglobin Sodium Potassium Chloride Carbon Dioxide BUN 20 H Creatinine 0.2 L Glucose POC Glucose 245 H 66 L Hemoglobin A1c Ferritin AST ALT Alkaline Phosphatase Lactate Dehydrogenase C-Reactive Protein Total Protein Albumin Arterial Blood Glucose Coronavirus (PCR) 06/22/21 06/22/21 06/22/21 11:03 16:07 22:03 WBC MCH MCHC RDW Lymph % (Auto) Lymph # (Auto) [place] # (Auto) Baso # (Auto) Seg Neutrophils % Seg Neuts % (Manual) Lymphocytes % (Manual) Seg Neutrophils # Seg Neutrophils # Man Lymphocytes # (Manual) D-Dimer ABG pH POC ABG pO2 ABG pO2 ABG HCO3 ABG O2 Saturation ABG Base Excess ABG Oxyhemoglobin ABG Sodium ABG Chloride ABG Glucose Oxyhemoglobin Carboxyhemoglobin Sodium Potassium Chloride Carbon Dioxide BUN Creatinine Glucose POC Glucose 184 H 326 H 138 H Hemoglobin A1c Ferritin AST ALT Alkaline Phosphatase Lactate Dehydrogenase C-Reactive Protein Total Protein Albumin Arterial Blood Glucose Coronavirus (PCR) 06/23/21 06/23/21 06/23/21 07:19 10:34 16:35 WBC MCH MCHC RDW Lymph % (Auto) Lymph # (Auto) [place] # (Auto) Baso # (Auto) Seg Neutrophils % Seg Neuts % (Manual) Lymphocytes % (Manual) Seg Neutrophils # Seg Neutrophils # Man Lymphocytes # (Manual) D-Dimer ABG pH POC ABG pO2 ABG pO2 ABG HCO3 ABG O2 Saturation ABG Base Excess ABG Oxyhemoglobin ABG Sodium ABG Chloride ABG Glucose Oxyhemoglobin Carboxyhemoglobin Sodium Potassium Chloride Carbon Dioxide BUN Creatinine Glucose POC Glucose 69 L 218 H 326 H Hemoglobin A1c Ferritin AST ALT Alkaline Phosphatase Lactate Dehydrogenase C-Reactive Protein Total Protein Albumin Arterial Blood Glucose Coronavirus (PCR) 06/23/21 06/24/21 06/24/21 22:44 11:41 16:54 WBC MCH MCHC RDW Lymph % (Auto) Lymph # (Auto) [place] # (Auto) Baso # (Auto) Seg Neutrophils % Seg Neuts % (Manual) Lymphocytes % (Manual) Seg Neutrophils # Seg Neutrophils # Man Lymphocytes # (Manual) D-Dimer ABG pH POC ABG pO2 ABG pO2 ABG HCO3 ABG O2 Saturation ABG Base Excess ABG Oxyhemoglobin ABG Sodium ABG Chloride ABG Glucose Oxyhemoglobin Carboxyhemoglobin Sodium Potassium Chloride Carbon Dioxide BUN Creatinine Glucose POC Glucose 252 H 217 H 357 H Hemoglobin A1c Ferritin AST ALT Alkaline Phosphatase Lactate Dehydrogenase C-Reactive Protein Total Protein Albumin Arterial Blood Glucose Coronavirus (PCR) 06/24/21 06/25/21 06/25/21 20:40 11:51 16:47 WBC MCH MCHC RDW Lymph % (Auto) Lymph # (Auto) [place] # (Auto) Baso # (Auto) Seg Neutrophils % Seg Neuts % (Manual) Lymphocytes % (Manual) Seg Neutrophils # Seg Neutrophils # Man Lymphocytes # (Manual) D-Dimer ABG pH POC ABG pO2 ABG pO2 ABG HCO3 ABG O2 Saturation ABG Base Excess ABG Oxyhemoglobin ABG Sodium ABG Chloride ABG Glucose Oxyhemoglobin Carboxyhemoglobin Sodium Potassium Chloride Carbon Dioxide BUN Creatinine Glucose POC Glucose 239 H 182 H 229 H Hemoglobin A1c Ferritin AST ALT Alkaline Phosphatase Lactate Dehydrogenase C-Reactive Protein Total Protein Albumin Arterial Blood Glucose Coronavirus (PCR) 06/25/21 06/26/21 06/26/21 22:27 07:20 12:19 WBC MCH MCHC RDW Lymph % (Auto) Lymph # (Auto) [place] # (Auto) Baso # (Auto) Seg Neutrophils % Seg Neuts % (Manual) Lymphocytes % (Manual) Seg Neutrophils # Seg Neutrophils # Man Lymphocytes # (Manual) D-Dimer ABG pH POC ABG pO2 ABG pO2 ABG HCO3 ABG O2 Saturation ABG Base Excess ABG Oxyhemoglobin ABG Sodium ABG Chloride ABG Glucose Oxyhemoglobin Carboxyhemoglobin Sodium Potassium 3.2 L D Chloride Carbon Dioxide BUN 20 H Creatinine 0.3 L Glucose POC Glucose 209 H 273 H Hemoglobin A1c Ferritin AST ALT 77 H Alkaline Phosphatase Lactate Dehydrogenase C-Reactive Protein Total Protein Albumin 3.3 L Arterial Blood Glucose Coronavirus (PCR) 06/26/21 06/26/21 06/27/21 16:52 20:55 07:14 WBC MCH MCHC RDW Lymph % (Auto) Lymph # (Auto) [place] # (Auto) Baso # (Auto) Seg Neutrophils % Seg Neuts % (Manual) Lymphocytes % (Manual) Seg Neutrophils # Seg Neutrophils # Man Lymphocytes # (Manual) D-Dimer ABG pH POC ABG pO2 ABG pO2 ABG HCO3 ABG O2 Saturation ABG Base Excess ABG Oxyhemoglobin ABG Sodium ABG Chloride ABG Glucose Oxyhemoglobin Carboxyhemoglobin Sodium Potassium Chloride Carbon Dioxide 31 H BUN 19 H Creatinine 0.2 L Glucose 112 H POC Glucose 326 H 220 H Hemoglobin A1c Ferritin AST ALT Alkaline Phosphatase Lactate Dehydrogenase C-Reactive Protein Total Protein Albumin Arterial Blood Glucose Coronavirus (PCR) 06/27/21 06/27/21 06/27/21 07:29 10:54 15:49 WBC MCH MCHC RDW Lymph % (Auto) Lymph # (Auto) [place] # (Auto) Baso # (Auto) Seg Neutrophils % Seg Neuts % (Manual) Lymphocytes % (Manual) Seg Neutrophils # Seg Neutrophils # Man Lymphocytes # (Manual) D-Dimer ABG pH POC ABG pO2 ABG pO2 ABG HCO3 ABG O2 Saturation ABG Base Excess ABG Oxyhemoglobin ABG Sodium ABG Chloride ABG Glucose Oxyhemoglobin Carboxyhemoglobin Sodium Potassium Chloride Carbon Dioxide BUN Creatinine Glucose POC Glucose 115 H 228 H 240 H Hemoglobin A1c Ferritin AST ALT Alkaline Phosphatase Lactate Dehydrogenase C-Reactive Protein Total Protein Albumin Arterial Blood Glucose Coronavirus (PCR) 06/28/21 06/28/21 06/28/21 05:43 05:43 07:13 WBC MCH 33 H MCHC RDW 19.8 H Lymph % (Auto) Lymph # (Auto) [place] # (Auto) Baso # (Auto) Seg Neutrophils % Seg Neuts % (Manual) Lymphocytes % (Manual) Seg Neutrophils # Seg Neutrophils # Man Lymphocytes # (Manual) D-Dimer ABG pH POC ABG pO2 ABG pO2 ABG HCO3 ABG O2 Saturation ABG Base Excess ABG Oxyhemoglobin ABG Sodium ABG Chloride ABG Glucose Oxyhemoglobin Carboxyhemoglobin Sodium Potassium 3.3 L Chloride Carbon Dioxide BUN 22 H Creatinine 0.2 L Glucose POC Glucose 69 L Hemoglobin A1c Ferritin AST ALT 63 H Alkaline Phosphatase Lactate Dehydrogenase C-Reactive Protein Total Protein Albumin 3.3 L Arterial Blood Glucose Coronavirus (PCR) 06/28/21 06/28/21 06/28/21 12:18 15:37 21:01 WBC MCH MCHC RDW Lymph % (Auto) Lymph # (Auto) [place] # (Auto) Baso # (Auto) Seg Neutrophils % Seg Neuts % (Manual) Lymphocytes % (Manual) Seg Neutrophils # Seg Neutrophils # Man Lymphocytes # (Manual) D-Dimer ABG pH POC ABG pO2 ABG pO2 ABG HCO3 ABG O2 Saturation ABG Base Excess ABG Oxyhemoglobin ABG Sodium ABG Chloride ABG Glucose Oxyhemoglobin Carboxyhemoglobin Sodium Potassium Chloride Carbon Dioxide BUN Creatinine Glucose POC Glucose 154 H 201 H 191 H Hemoglobin A1c Ferritin AST ALT Alkaline Phosphatase Lactate Dehydrogenase C-Reactive Protein Total Protein Albumin Arterial Blood Glucose Coronavirus (PCR) 06/29/21 06/29/21 06/29/21 11:55 15:47 21:06 WBC MCH MCHC RDW Lymph % (Auto) Lymph # (Auto) [place] # (Auto) Baso # (Auto) Seg Neutrophils % Seg Neuts % (Manual) Lymphocytes % (Manual) Seg Neutrophils # Seg Neutrophils # Man Lymphocytes # (Manual) D-Dimer ABG pH POC ABG pO2 ABG pO2 ABG HCO3 ABG O2 Saturation ABG Base Excess ABG Oxyhemoglobin ABG Sodium ABG Chloride ABG Glucose Oxyhemoglobin Carboxyhemoglobin Sodium Potassium Chloride Carbon Dioxide BUN Creatinine Glucose POC Glucose 238 H 249 H 155 H Hemoglobin A1c Ferritin AST ALT Alkaline Phosphatase Lactate Dehydrogenase C-Reactive Protein Total Protein Albumin Arterial Blood Glucose Coronavirus (PCR) 06/30/21 06/30/21 06/30/21 04:00 07:50 11:50 WBC MCH MCHC RDW Lymph % (Auto) Lymph # (Auto) [place] # (Auto) Baso # (Auto) Seg Neutrophils % Seg Neuts % (Manual) Lymphocytes % (Manual) Seg Neutrophils # Seg Neutrophils # Man Lymphocytes # (Manual) D-Dimer ABG pH POC ABG pO2 ABG pO2 ABG HCO3 ABG O2 Saturation ABG Base Excess ABG Oxyhemoglobin ABG Sodium ABG Chloride ABG Glucose Oxyhemoglobin Carboxyhemoglobin Sodium Potassium 3.5 L Chloride Carbon Dioxide BUN 18 H Creatinine 0.3 L Glucose 111 H POC Glucose 117 H 250 H Hemoglobin A1c Ferritin AST ALT Alkaline Phosphatase Lactate Dehydrogenase C-Reactive Protein Total Protein Albumin Arterial Blood Glucose Coronavirus (PCR) 06/30/21 06/30/21 07/01/21 16:05 21:02 07:26 WBC MCH MCHC RDW Lymph % (Auto) Lymph # (Auto) [place] # (Auto) Baso # (Auto) Seg Neutrophils % Seg Neuts % (Manual) Lymphocytes % (Manual) Seg Neutrophils # Seg Neutrophils # Man Lymphocytes # (Manual) D-Dimer ABG pH POC ABG pO2 ABG pO2 ABG HCO3 ABG O2 Saturation ABG Base Excess ABG Oxyhemoglobin ABG Sodium ABG Chloride ABG Glucose Oxyhemoglobin Carboxyhemoglobin Sodium Potassium Chloride Carbon Dioxide BUN Creatinine Glucose POC Glucose 250 H 217 H 111 H Hemoglobin A1c Ferritin AST ALT Alkaline Phosphatase Lactate Dehydrogenase C-Reactive Protein Total Protein Albumin Arterial Blood Glucose Coronavirus (PCR) 07/01/21 07/01/21 07/01/21 11:06 15:48 21:31 WBC MCH MCHC RDW Lymph % (Auto) Lymph # (Auto) [place] # (Auto) Baso # (Auto) Seg Neutrophils % Seg Neuts % (Manual) Lymphocytes % (Manual) Seg Neutrophils # Seg Neutrophils # Man Lymphocytes # (Manual) D-Dimer ABG pH POC ABG pO2 ABG pO2 ABG HCO3 ABG O2 Saturation ABG Base Excess ABG Oxyhemoglobin ABG Sodium ABG Chloride ABG Glucose Oxyhemoglobin Carboxyhemoglobin Sodium Potassium Chloride Carbon Dioxide BUN Creatinine Glucose POC Glucose 229 H 239 H 199 H Hemoglobin A1c Ferritin AST ALT Alkaline Phosphatase Lactate Dehydrogenase C-Reactive Protein Total Protein Albumin Arterial Blood Glucose Coronavirus (PCR) 07/02/21 07/02/21 07/02/21 11:50 16:44 21:49 WBC MCH MCHC RDW Lymph % (Auto) Lymph # (Auto) [place] # (Auto) Baso # (Auto) Seg Neutrophils % Seg Neuts % (Manual) Lymphocytes % (Manual) Seg Neutrophils # Seg Neutrophils # Man Lymphocytes # (Manual) D-Dimer ABG pH POC ABG pO2 ABG pO2 ABG HCO3 ABG O2 Saturation ABG Base Excess ABG Oxyhemoglobin ABG Sodium ABG Chloride ABG Glucose Oxyhemoglobin Carboxyhemoglobin Sodium Potassium Chloride Carbon Dioxide BUN Creatinine Glucose POC Glucose 230 H 203 H 197 H Hemoglobin A1c Ferritin AST ALT Alkaline Phosphatase Lactate Dehydrogenase C-Reactive Protein Total Protein Albumin Arterial Blood Glucose Coronavirus (PCR) 07/03/21 07/03/21 07/03/21 05:46 05:46 11:59 WBC MCH MCHC RDW 19.6 H Lymph % (Auto) Lymph # (Auto) [place] # (Auto) Baso # (Auto) Seg Neutrophils % Seg Neuts % (Manual) Lymphocytes % (Manual) Seg Neutrophils # Seg Neutrophils # Man Lymphocytes # (Manual) D-Dimer ABG pH POC ABG pO2 ABG pO2 ABG HCO3 ABG O2 Saturation ABG Base Excess ABG Oxyhemoglobin ABG Sodium ABG Chloride ABG Glucose Oxyhemoglobin Carboxyhemoglobin Sodium Potassium 3.2 L Chloride Carbon Dioxide BUN Creatinine 0.3 L Glucose POC Glucose 145 H Hemoglobin A1c Ferritin AST ALT Alkaline Phosphatase Lactate Dehydrogenase C-Reactive Protein Total Protein Albumin Arterial Blood Glucose Coronavirus (PCR) 07/03/21 07/03/21 07/04/21 16:40 22:00 06:35 WBC MCH MCHC RDW Lymph % (Auto) Lymph # (Auto) [place] # (Auto) Baso # (Auto) Seg Neutrophils % Seg Neuts % (Manual) Lymphocytes % (Manual) Seg Neutrophils # Seg Neutrophils # Man Lymphocytes # (Manual) D-Dimer ABG pH POC ABG pO2 ABG pO2 ABG HCO3 ABG O2 Saturation ABG Base Excess ABG Oxyhemoglobin ABG Sodium ABG Chloride ABG Glucose Oxyhemoglobin Carboxyhemoglobin Sodium Potassium Chloride Carbon Dioxide BUN Creatinine 0.3 L Glucose 118 H POC Glucose 176 H 127 H Hemoglobin A1c Ferritin AST ALT Alkaline Phosphatase Lactate Dehydrogenase C-Reactive Protein Total Protein Albumin Arterial Blood Glucose Coronavirus (PCR) 07/04/21 07/04/21 07/05/21 12:30 16:38 08:37 WBC MCH MCHC RDW Lymph % (Auto) Lymph # (Auto) [place] # (Auto) Baso # (Auto) Seg Neutrophils % Seg Neuts % (Manual) Lymphocytes % (Manual) Seg Neutrophils # Seg Neutrophils # Man Lymphocytes # (Manual) D-Dimer ABG pH POC ABG pO2 ABG pO2 ABG HCO3 ABG O2 Saturation ABG Base Excess ABG Oxyhemoglobin ABG Sodium ABG Chloride ABG Glucose Oxyhemoglobin Carboxyhemoglobin Sodium Potassium Chloride Carbon Dioxide BUN Creatinine Glucose POC Glucose 162 H 205 H 115 H Hemoglobin A1c Ferritin AST ALT Alkaline Phosphatase Lactate Dehydrogenase C-Reactive Protein Total Protein Albumin Arterial Blood Glucose Coronavirus (PCR) 07/05/21 07/05/21 07/05/21 10:57 16:42 21:14 WBC MCH MCHC RDW Lymph % (Auto) Lymph # (Auto) [place] # (Auto) Baso # (Auto) Seg Neutrophils % Seg Neuts % (Manual) Lymphocytes % (Manual) Seg Neutrophils # Seg Neutrophils # Man Lymphocytes # (Manual) D-Dimer ABG pH POC ABG pO2 ABG pO2 ABG HCO3 ABG O2 Saturation ABG Base Excess ABG Oxyhemoglobin ABG Sodium ABG Chloride ABG Glucose Oxyhemoglobin Carboxyhemoglobin Sodium Potassium Chloride Carbon Dioxide BUN Creatinine Glucose POC Glucose 151 H 184 H 130 H Hemoglobin A1c Ferritin AST ALT Alkaline Phosphatase Lactate Dehydrogenase C-Reactive Protein Total Protein Albumin Arterial Blood Glucose Coronavirus (PCR) 07/06/21 07/06/21 07/06/21 07:31 11:49 16:46 WBC MCH MCHC RDW Lymph % (Auto) Lymph # (Auto) [place] # (Auto) Baso # (Auto) Seg Neutrophils % Seg Neuts % (Manual) Lymphocytes % (Manual) Seg Neutrophils # Seg Neutrophils # Man Lymphocytes # (Manual) D-Dimer ABG pH POC ABG pO2 ABG pO2 ABG HCO3 ABG O2 Saturation ABG Base Excess ABG Oxyhemoglobin ABG Sodium ABG Chloride ABG Glucose Oxyhemoglobin Carboxyhemoglobin Sodium Potassium Chloride Carbon Dioxide BUN Creatinine Glucose POC Glucose 106 H 173 H 205 H Hemoglobin A1c Ferritin AST ALT Alkaline Phosphatase Lactate Dehydrogenase C-Reactive Protein Total Protein Albumin Arterial Blood Glucose Coronavirus (PCR) 07/06/21 07/07/21 07/07/21 21:38 06:00 06:00 WBC 16.1 H MCH MCHC RDW 18.8 H Lymph % (Auto) Lymph # (Auto) [place] # (Auto) 1.1 H Baso # (Auto) 0.2 H Seg Neutrophils % 74.9 H Seg Neuts % (Manual) Lymphocytes % (Manual) Seg Neutrophils # 12.1 H Seg Neutrophils # Man Lymphocytes # (Manual) D-Dimer ABG pH POC ABG pO2 ABG pO2 ABG HCO3 ABG O2 Saturation ABG Base Excess ABG Oxyhemoglobin ABG Sodium ABG Chloride ABG Glucose Oxyhemoglobin Carboxyhemoglobin Sodium Potassium 3.5 L D Chloride Carbon Dioxide BUN 6 L Creatinine < 0.2 L Glucose 106 H POC Glucose 120 H Hemoglobin A1c Ferritin AST ALT Alkaline Phosphatase Lactate Dehydrogenase C-Reactive Protein Total Protein Albumin Arterial Blood Glucose Coronavirus (PCR) 07/07/21 07/07/21 07/07/21 07:10 11:53 15:53 WBC MCH MCHC RDW Lymph % (Auto) Lymph # (Auto) [place] # (Auto) Baso # (Auto) Seg Neutrophils % Seg Neuts % (Manual) Lymphocytes % (Manual) Seg Neutrophils # Seg Neutrophils # Man Lymphocytes # (Manual) D-Dimer ABG pH POC ABG pO2 ABG pO2 ABG HCO3 ABG O2 Saturation ABG Base Excess ABG Oxyhemoglobin ABG Sodium ABG Chloride ABG Glucose Oxyhemoglobin Carboxyhemoglobin Sodium Potassium Chloride Carbon Dioxide BUN Creatinine Glucose POC Glucose 132 H 169 H 242 H Hemoglobin A1c Ferritin AST ALT Alkaline Phosphatase Lactate Dehydrogenase C-Reactive Protein Total Protein Albumin Arterial Blood Glucose Coronavirus (PCR) 07/07/21 07/08/21 07/08/21 21:41 08:09 12:20 WBC MCH MCHC RDW Lymph % (Auto) Lymph # (Auto) [place] # (Auto) Baso # (Auto) Seg Neutrophils % Seg Neuts % (Manual) Lymphocytes % (Manual) Seg Neutrophils # Seg Neutrophils # Man Lymphocytes # (Manual) D-Dimer ABG pH POC ABG pO2 ABG pO2 ABG HCO3 ABG O2 Saturation ABG Base Excess ABG Oxyhemoglobin ABG Sodium ABG Chloride ABG Glucose Oxyhemoglobin Carboxyhemoglobin Sodium Potassium Chloride Carbon Dioxide BUN Creatinine Glucose POC Glucose 128 H 132 H 179 H Hemoglobin A1c Ferritin AST ALT Alkaline Phosphatase Lactate Dehydrogenase C-Reactive Protein Total Protein Albumin Arterial Blood Glucose Coronavirus (PCR) 07/08/21 07/08/21 07/08/21 16:37 21:45 22:44 WBC MCH MCHC RDW Lymph % (Auto) Lymph # (Auto) [place] # (Auto) Baso # (Auto) Seg Neutrophils % Seg Neuts % (Manual) Lymphocytes % (Manual) Seg Neutrophils # Seg Neutrophils # Man Lymphocytes # (Manual) D-Dimer ABG pH POC ABG pO2 ABG pO2 ABG HCO3 ABG O2 Saturation ABG Base Excess ABG Oxyhemoglobin ABG Sodium ABG Chloride ABG Glucose Oxyhemoglobin Carboxyhemoglobin Sodium Potassium Chloride Carbon Dioxide BUN Creatinine Glucose POC Glucose 192 H 51 L 137 H Hemoglobin A1c Ferritin AST ALT Alkaline Phosphatase Lactate Dehydrogenase C-Reactive Protein Total Protein Albumin Arterial Blood Glucose Coronavirus (PCR) 07/09/21 07/09/21 07/09/21 04:45 04:45 04:45 WBC MCH MCHC RDW 18.3 H Lymph % (Auto) Lymph # (Auto) [place] # (Auto) Baso # (Auto) Seg Neutrophils % Seg Neuts % (Manual) 82.0 H Lymphocytes % (Manual) 13.0 L Seg Neutrophils # Seg Neutrophils # Man 7.8 H Lymphocytes # (Manual) D-Dimer 638.35 H ABG pH POC ABG pO2 ABG pO2 ABG HCO3 ABG O2 Saturation ABG Base Excess ABG Oxyhemoglobin ABG Sodium ABG Chloride ABG Glucose Oxyhemoglobin Carboxyhemoglobin Sodium Potassium Chloride 96.9 L Carbon Dioxide 35 H BUN Creatinine 0.2 L Glucose 135 H POC Glucose Hemoglobin A1c Ferritin AST ALT Alkaline Phosphatase Lactate Dehydrogenase C-Reactive Protein 4.30 H Total Protein Albumin Arterial Blood Glucose Coronavirus (PCR) 07/09/21 07/09/21 07/09/21 05:19 07:36 11:16 WBC MCH MCHC RDW Lymph % (Auto) Lymph # (Auto) [place] # (Auto) Baso # (Auto) Seg Neutrophils % Seg Neuts % (Manual) Lymphocytes % (Manual) Seg Neutrophils # Seg Neutrophils # Man Lymphocytes # (Manual) D-Dimer ABG pH POC ABG pO2 ABG pO2 ABG HCO3 ABG O2 Saturation ABG Base Excess ABG Oxyhemoglobin ABG Sodium ABG Chloride ABG Glucose Oxyhemoglobin Carboxyhemoglobin Sodium Potassium Chloride Carbon Dioxide BUN Creatinine Glucose POC Glucose 135 H 148 H 212 H Hemoglobin A1c Ferritin AST ALT Alkaline Phosphatase Lactate Dehydrogenase C-Reactive Protein Total Protein Albumin Arterial Blood Glucose Coronavirus (PCR) 07/09/21 07/09/21 07/10/21 15:21 21:12 05:40 WBC MCH MCHC RDW Lymph % (Auto) Lymph # (Auto) [place] # (Auto) Baso # (Auto) Seg Neutrophils % Seg Neuts % (Manual) Lymphocytes % (Manual) Seg Neutrophils # Seg Neutrophils # Man Lymphocytes # (Manual) D-Dimer ABG pH POC ABG pO2 ABG pO2 ABG HCO3 ABG O2 Saturation ABG Base Excess ABG Oxyhemoglobin ABG Sodium ABG Chloride ABG Glucose Oxyhemoglobin Carboxyhemoglobin Sodium Potassium 3.3 L Chloride 95.1 L Carbon Dioxide 39 H BUN Creatinine 0.2 L Glucose 122 H POC Glucose 128 H 196 H Hemoglobin A1c Ferritin AST ALT Alkaline Phosphatase Lactate Dehydrogenase C-Reactive Protein Total Protein Albumin Arterial Blood Glucose Coronavirus (PCR) 07/10/21 07/10/21 07/10/21 07:38 11:15 16:29 WBC MCH MCHC RDW Lymph % (Auto) Lymph # (Auto) [place] # (Auto) Baso # (Auto) Seg Neutrophils % Seg Neuts % (Manual) Lymphocytes % (Manual) Seg Neutrophils # Seg Neutrophils # Man Lymphocytes # (Manual) D-Dimer ABG pH POC ABG pO2 ABG pO2 ABG HCO3 ABG O2 Saturation ABG Base Excess ABG Oxyhemoglobin ABG Sodium ABG Chloride ABG Glucose Oxyhemoglobin Carboxyhemoglobin Sodium Potassium Chloride Carbon Dioxide BUN Creatinine Glucose POC Glucose 128 H 175 H 174 H Hemoglobin A1c Ferritin AST ALT Alkaline Phosphatase Lactate Dehydrogenase C-Reactive Protein Total Protein Albumin Arterial Blood Glucose Coronavirus (PCR) 07/10/21 07/11/21 07/11/21 20:49 05:50 12:08 WBC MCH MCHC RDW Lymph % (Auto) Lymph # (Auto) [place] # (Auto) Baso # (Auto) Seg Neutrophils % Seg Neuts % (Manual) Lymphocytes % (Manual) Seg Neutrophils # Seg Neutrophils # Man Lymphocytes # (Manual) D-Dimer ABG pH POC ABG pO2 ABG pO2 ABG HCO3 ABG O2 Saturation ABG Base Excess ABG Oxyhemoglobin ABG Sodium ABG Chloride ABG Glucose Oxyhemoglobin Carboxyhemoglobin Sodium Potassium Chloride 97.3 L Carbon Dioxide 34 H BUN Creatinine 0.2 L Glucose 109 H POC Glucose 142 H 220 H Hemoglobin A1c Ferritin AST ALT Alkaline Phosphatase Lactate Dehydrogenase C-Reactive Protein Total Protein Albumin Arterial Blood Glucose Coronavirus (PCR) 07/11/21 07/11/21 07/12/21 17:09 21:55 07:36 WBC MCH MCHC RDW Lymph % (Auto) Lymph # (Auto) [place] # (Auto) Baso # (Auto) Seg Neutrophils % Seg Neuts % (Manual) Lymphocytes % (Manual) Seg Neutrophils # Seg Neutrophils # Man Lymphocytes # (Manual) D-Dimer ABG pH POC ABG pO2 ABG pO2 ABG HCO3 ABG O2 Saturation ABG Base Excess ABG Oxyhemoglobin ABG Sodium ABG Chloride ABG Glucose Oxyhemoglobin Carboxyhemoglobin Sodium Potassium Chloride Carbon Dioxide BUN Creatinine Glucose POC Glucose 219 H 124 H 114 H Hemoglobin A1c Ferritin AST ALT Alkaline Phosphatase Lactate Dehydrogenase C-Reactive Protein Total Protein Albumin Arterial Blood Glucose Coronavirus (PCR) 07/12/21 07/12/21 07/12/21 11:08 15:43 22:20 WBC MCH MCHC RDW Lymph % (Auto) Lymph # (Auto) [place] # (Auto) Baso # (Auto) Seg Neutrophils % Seg Neuts % (Manual) Lymphocytes % (Manual) Seg Neutrophils # Seg Neutrophils # Man Lymphocytes # (Manual) D-Dimer ABG pH POC ABG pO2 ABG pO2 ABG HCO3 ABG O2 Saturation ABG Base Excess ABG Oxyhemoglobin ABG Sodium ABG Chloride ABG Glucose Oxyhemoglobin Carboxyhemoglobin Sodium Potassium Chloride Carbon Dioxide BUN Creatinine Glucose POC Glucose 195 H 276 H 189 H Hemoglobin A1c Ferritin AST ALT Alkaline Phosphatase Lactate Dehydrogenase C-Reactive Protein Total Protein Albumin Arterial Blood Glucose Coronavirus (PCR) 07/13/21 07/13/21 07/13/21 08:01 08:08 10:17 WBC MCH MCHC RDW Lymph % (Auto) Lymph # (Auto) [place] # (Auto) Baso # (Auto) Seg Neutrophils % Seg Neuts % (Manual) Lymphocytes % (Manual) Seg Neutrophils # Seg Neutrophils # Man Lymphocytes # (Manual) D-Dimer ABG pH POC ABG pO2 ABG pO2 ABG HCO3 ABG O2 Saturation ABG Base Excess ABG Oxyhemoglobin ABG Sodium ABG Chloride ABG Glucose Oxyhemoglobin Carboxyhemoglobin Sodium Potassium Chloride 94.4 L Carbon Dioxide 34 H BUN Creatinine 0.3 L Glucose 149 H POC Glucose 132 H 265 H Hemoglobin A1c Ferritin AST ALT Alkaline Phosphatase Lactate Dehydrogenase C-Reactive Protein Total Protein Albumin Arterial Blood Glucose Coronavirus (PCR) 07/13/21 07/13/21 07/14/21 17:58 21:41 07:34 WBC MCH MCHC RDW Lymph % (Auto) Lymph # (Auto) [place] # (Auto) Baso # (Auto) Seg Neutrophils % Seg Neuts % (Manual) Lymphocytes % (Manual) Seg Neutrophils # Seg Neutrophils # Man Lymphocytes # (Manual) D-Dimer ABG pH POC ABG pO2 ABG pO2 ABG HCO3 ABG O2 Saturation ABG Base Excess ABG Oxyhemoglobin ABG Sodium ABG Chloride ABG Glucose Oxyhemoglobin Carboxyhemoglobin Sodium Potassium Chloride Carbon Dioxide BUN Creatinine Glucose POC Glucose 217 H 223 H 116 H Hemoglobin A1c Ferritin AST ALT Alkaline Phosphatase Lactate Dehydrogenase C-Reactive Protein Total Protein Albumin Arterial Blood Glucose Coronavirus (PCR) 07/14/21 10:50 WBC MCH MCHC RDW Lymph % (Auto) Lymph # (Auto) [place] # (Auto) Baso # (Auto) Seg Neutrophils % Seg Neuts % (Manual) Lymphocytes % (Manual) Seg Neutrophils # Seg Neutrophils # Man Lymphocytes # (Manual) D-Dimer ABG pH POC ABG pO2 ABG pO2 ABG HCO3 ABG O2 Saturation ABG Base Excess ABG Oxyhemoglobin ABG Sodium ABG Chloride ABG Glucose Oxyhemoglobin Carboxyhemoglobin Sodium Potassium Chloride Carbon Dioxide BUN Creatinine Glucose POC Glucose 191 H Hemoglobin A1c Ferritin AST ALT Alkaline Phosphatase Lactate Dehydrogenase C-Reactive Protein Total Protein Albumin Arterial Blood Glucose Coronavirus (PCR)
[2021-07-14] MEDS: ENOXAPARIN 40 MG/0.4 ML INJ SUB-Q SCH (21:06)
[2021-07-14] MEDS: ZOLPIDEM 5 MG TAB PO PRN (21:06)
--- NOTE | 2021-07-15 07:28 | Progress Note ---
Assessment and Plan Assessment and plan: #Acute hypoxic respiratory failure -Currently on high flow nasal cannula (30 L, 75% FiO2) -continue prednisone 5mg qday -Pulmonology following, assistance appreciated -Referral sent for LTACH (patient stay 90 days) -encouraged prone positioning -will assess need for lasix PRN #Heart failure with preserved ejection fraction -TTE: LVEF 55-60% with diastolic dysfunction -will continue to monitor for signs of fluid overload #COVID-19 infection -Continue Covid vitamins #Type 2 diabetes -Continue Lantus 15 units daily and sliding scale insulin #Dysuria #Possible UTI -Improving -Urinalysis ordered 07/09, not collected -s/p Levaquin #Anxiety -Stable -Continue Xanax #DVT prophylaxis -Lovenox 40 daily #Deconditioning -Will benefit from SNF after prolonged hospital stay, Resolved issues #Sepsis secondary to COVID-19 #Iatrogenic diarrhea #Hypomagnesemia #Hyponatremia #Protein calorie malnutrition Disposition Plan: continue medical management Total Time Spent with Patient (Minutes): 20 minutes History Interval history: No acute events overnight. Still on HFNC. No complaints at this time. Hospitalist Physical - Physical exam Narrative exam: GENERAL: Well-developed well-nourished. Lying in bed in no acute distress. HEENT: High flow nasal cannula at 30L/75% CHEST/LUNGS: Coarse breath sounds bilaterally. HEART/CARDIOVASCULAR: RRR. No murmur, rubs or gallops appreciated. ABDOMEN: +BS. NT/ND. PSYCH: Cooperative. - Constitutional Vitals: Temp Pulse Resp BP Pulse Ox 98.0 F 89 26 H 121/76 96 07/15/21 05:23 07/15/21 05:23 07/15/21 05:23 07/15/21 05:23 07/15/21 05:23 General appearance: Present: no acute distress, well-nourished, obese Results - Labs CBC & Chem 7: 07/09/21 04:45 07/15/21 04:00 Labs: Laboratory Last Values WBC 9.5 K/mm3 (4.5-11.0) 07/09/21 04:45 RBC 3.88 M/mm3 (3.65-5.03) 07/09/21 04:45 Hgb 11.8 gm/dl (10.1-14.3) 07/09/21 04:45 Hct 36.8 % (30.3-42.9) 07/09/21 04:45 MCV 95 fl (79-97) 07/09/21 04:45 MCH 30 pg (28-32) 07/09/21 04:45 MCHC 32 % (30-34) 07/09/21 04:45 RDW 18.3 % (13.2-15.2) H 07/09/21 04:45 Plt Count 299 K/mm3 (140-440) 07/09/21 04:45 Lymph % (Auto) 15.6 % (13.4-35.0) 07/07/21 06:00 [place] % (Auto) 6.6 % (0.0-7.3) 07/07/21 06:00 Eos % (Auto) 1.9 % (0.0-4.3) 07/07/21 06:00 Baso % (Auto) 1.0 % (0.0-1.8) 07/07/21 06:00 Lymph # (Auto) 2.5 K/mm3 (1.2-5.4) 07/07/21 06:00 [place] # (Auto) 1.1 K/mm3 (0.0-0.8) H 07/07/21 06:00 Eos # (Auto) 0.3 K/mm3 (0.0-0.4) 07/07/21 06:00 Baso # (Auto) 0.2 K/mm3 (0.0-0.1) H 07/07/21 06:00 Add Manual Diff Complete 07/09/21 04:45 Total Counted 100 07/09/21 04:45 Seg Neutrophils % 74.9 % (40.0-70.0) H 07/07/21 06:00 Seg Neuts % (Manual) 82.0 % (40.0-70.0) H 07/09/21 04:45 Band Neutrophils % 1.0 % 05/12/21 04:05 Lymphocytes % (Manual) 13.0 % (13.4-35.0) L 07/09/21 04:45 Monocytes % (Manual) 3.0 % (0.0-7.3) 07/09/21 04:45 Eosinophils % (Manual) 2.0 % (0.0-4.3) 07/09/21 04:45 Nucleated RBC % Not Reportable 07/09/21 04:45 Seg Neutrophils # 12.1 K/mm3 (1.8-7.7) H 07/07/21 06:00 Seg Neutrophils # Man 7.8 K/mm3 (1.8-7.7) H 07/09/21 04:45 Band Neutrophils # 0.0 K/mm3 07/09/21 04:45 Lymphocytes # (Manual) 1.2 K/mm3 (1.2-5.4) 07/09/21 04:45 Abs React Lymphs (Man) 0.0 K/mm3 07/09/21 04:45 Monocytes # (Manual) 0.3 K/mm3 (0.0-0.8) 07/09/21 04:45 Eosinophils # (Manual) 0.2 K/mm3 (0.0-0.4) 07/09/21 04:45 Basophils # (Manual) 0.0 K/mm3 (0.0-0.1) 07/09/21 04:45 Metamyelocytes # 0.0 K/mm3 07/09/21 04:45 Myelocytes # 0.0 K/mm3 07/09/21 04:45 Promyelocytes # 0.0 K/mm3 07/09/21 04:45 Blast Cells # 0.0 K/mm3 07/09/21 04:45 WBC Morphology Not Reportable 07/09/21 04:45 Hypersegmented Neuts Not Reportable 07/09/21 04:45 Hyposegmented Neuts Not Reportable 07/09/21 04:45 Hypogranular Neuts Not Reportable 07/09/21 04:45 Smudge Cells Not Reportable 07/09/21 04:45 Toxic Granulation Not Reportable 07/09/21 04:45 Toxic Vacuolation Not Reportable 07/09/21 04:45 Dohle Bodies Not Reportable 07/09/21 04:45 Pelger-Huet Anomaly Not Reportable 07/09/21 04:45 Janelle Rods Not Reportable 07/09/21 04:45 Platelet Estimate Consistent w auto 07/09/21 04:45 Clumped Platelets Not Reportable 07/09/21 04:45 Plt Clumps, EDTA Not Reportable 07/09/21 04:45 Large Platelets Not Reportable 07/09/21 04:45 Giant Platelets Rare 07/09/21 04:45 Platelet Satelliting Not Reportable 07/09/21 04:45 Plt Morphology Comment Not Reportable 07/09/21 04:45 RBC Morphology Not Reportable 07/09/21 04:45 Dimorphic RBCs Not Reportable 07/09/21 04:45 Polychromasia Not Reportable 07/09/21 04:45 Hypochromasia Few 07/09/21 04:45 Poikilocytosis Not Reportable 07/09/21 04:45 Anisocytosis Not Reportable 07/09/21 04:45 Microcytosis Not Reportable 07/09/21 04:45 Macrocytosis Not Reportable 07/09/21 04:45 Spherocytes Not Reportable 07/09/21 04:45 Pappenheimer Bodies Not Reportable 07/09/21 04:45 Sickle Cells Not Reportable 07/09/21 04:45 Target Cells Not Reportable 07/09/21 04:45 Tear Drop Cells Not Reportable 07/09/21 04:45 Ovalocytes Not Reportable 07/09/21 04:45 Stomatocytes 1+ 07/09/21 04:45 Helmet Cells Not Reportable 07/09/21 04:45 [place] Bodies Not Reportable 07/09/21 04:45 [place] Rings Not Reportable 07/09/21 04:45 Crow Cells Not Reportable 07/09/21 04:45 Bite Cells Not Reportable 07/09/21 04:45 Crenated Cell Not Reportable 07/09/21 04:45 Elliptocytes Not Reportable 07/09/21 04:45 Acanthocytes (Spur) Not Reportable 07/09/21 04:45 Rouleaux Not Reportable 07/09/21 04:45 Hemoglobin C Crystals Not Reportable 07/09/21 04:45 Schistocytes Not Reportable 07/09/21 04:45 Malaria parasites Not Reportable 07/09/21 04:45 Justin Bodies Not Reportable 07/09/21 04:45 Hem Pathologist Commnt No 07/09/21 04:45 D-Dimer 638.35 ng/mlDDU (0-234) H 07/09/21 04:45 ABG pH 7.403 pH Units (7.350-7.450) 05/14/21 02:23 POC ABG pCO2 45.4 mmHg (32.0-48.0) 05/03/21 04:49 ABG pCO2 50.2 mm Hg 05/14/21 02:23 POC ABG pO2 65.3 mmHg (83-108) L 05/03/21 04:49 ABG pO2 130.3 mm Hg (80.0-90.0) H 05/14/21 02:23 POC ABG HCO3 18.5 05/03/21 04:49 ABG HCO3 30.6 mmol/L (20.0-26.0) H 05/14/21 02:23 ABG O2 Saturation 98.5 % (95.0-99.0) 05/14/21 02:23 ABG O2 Content 17.9 (0.0-44) 05/14/21 02:23 POC ABG Base Excess -8.9 05/03/21 04:49 ABG Base Excess 4.9 mmol/L (-2.0-3.0) H 05/14/21 02:23 ABG Hemoglobin 13.0 gm/dl (12.0-16.0) 05/14/21 02:23 ABG Oxyhemoglobin 87.8 (94-98) L 05/03/21 04:49 ABG Carboxyhemoglobin 1.4 % (0.0-5.0) 05/14/21 02:23 ABG Methemoglobin 0.6 % (0.0-1.5) 05/14/21 02:23 ABG Sodium 133.0 mmol/L (136.0-145.0) L 05/03/21 04:49 ABG Potassium 3.9 mmol/L (3.40-4.50) 05/03/21 04:49 ABG Chloride 97.0 mmol/L (98-107) L 05/03/21 04:49 ABG Glucose 403 mg/dL (65-95) H 05/03/21 04:49 Oxyhemoglobin 96.5 % (95.0-99.0) 05/14/21 02:23 Carboxyhemoglobin 0.6 (0.5-1.5) 05/03/21 04:49 FiO2 90 % 05/14/21 02:23 FiO2 % 100.0 05/03/21 04:49 Sodium 141 mmol/L (137-145) 07/13/21 08:08 Potassium 3.8 mmol/L (3.6-5.0) 07/13/21 08:08 Chloride 94.4 mmol/L (98-107) L 07/13/21 08:08 Carbon Dioxide 34 mmol/L (22-30) H 07/13/21 08:08 Anion Gap 16 mmol/L 07/13/21 08:08 BUN 16 mg/dL (7-17) 07/13/21 08:08 Creatinine 0.3 mg/dL (0.6-1.2) L 07/13/21 08:08 Estimated GFR > 60 ml/min 07/13/21 08:08 BUN/Creatinine Ratio 53 % 07/13/21 08:08 Glucose 149 mg/dL (65-100) H 07/13/21 08:08 POC Glucose 132 mg/dL (70-105) H 07/14/21 20:51 Hemoglobin A1c 8.5 % (4-6) H 04/18/21 07:36 Calcium 9.8 mg/dL (8.4-10.2) 07/13/21 08:08 Phosphorus 3.60 mg/dL (2.5-4.5) 07/09/21 04:45 Magnesium 1.90 mg/dL (1.7-2.3) 07/09/21 04:45 Ferritin 155.9 ng/mL (10.0-200.0) 07/09/21 04:45 Total Bilirubin 0.30 mg/dL (0.1-1.2) 06/28/21 05:43 AST 19 units/L (5-40) 06/28/21 05:43 ALT 63 units/L (7-56) H 06/28/21 05:43 Alkaline Phosphatase 61 units/L (35-129) 06/28/21 05:43 Lactate Dehydrogenase 475 units/L (91-180) H 06/05/21 05:26 C-Reactive Protein 4.30 mg/dL (0.00-1.30) H 07/09/21 04:45 NT-Pro-B Natriuret Pep 59.45 pg/mL (0-450) 07/07/21 13:40 Total Protein 6.5 g/dL (6.3-8.2) 06/28/21 05:43 Albumin 3.3 g/dL (3.9-5) L 06/28/21 05:43 Albumin/Globulin Ratio 1.0 % 06/28/21 05:43 Triglycerides < 9 mg/dL (2-149) 05/03/21 04:30 Procalcitonin < 0.05 ng/mL (<0.15) 05/23/21 09:50 Arterial Blood Glucose 403 mg/dL (65-95) H 05/03/21 04:49 Arterial Blood Ionized Calcium 4.9 mg/dL (4.6-5.3) 05/03/21 04:49 Coronavirus (PCR) Positive (Negative) A 06/05/21 08:30 Amos/IV: Voiding Method Bedpan Active Medications - Current Medications Current Medications: Generic Name Dose Route Start Last Admin Trade Name Freq PRN Reason Stop Dose Admin Acetaminophen 650 mg 07/02/21 17:48 07/13/21 22:24 Acetaminophen 325 Mg Tab PO 650 mg Q4H PRN Administration Pain, Mild (1-3) Albuterol 2.5 mg 04/16/21 13:39 04/21/21 20:39 Albuterol 2.5 Mg/3 Ml Nebu IH 2.5 mg Q4HRT PRN Administration Shortness Of Breath Alprazolam 2 mg 07/04/21 12:00 07/14/21 21:05 Alprazolam 1 Mg Tab PO 2 mg BID TUTU Administration Ascorbic Acid 500 mg 04/24/21 10:00 07/14/21 10:19 Ascorbic Acid 500 Mg Tab PO 500 mg QDAY TUTU Administration Cholecalciferol 1,000 unit 04/17/21 10:00 07/14/21 10:19 Cholecalciferol (Vit D3) 1000 Unit (25 Mcg) Tab PO 1,000 unit QDAY TUTU Administration Dextrose 50 ml 04/18/21 07:30 04/28/21 09:59 Dextrose 50% In Water (25gm) 50 Ml Syringe IV 50 ml Q30MIN PRN Administration Hypoglycemia Protocol Enoxaparin Sodium 40 mg 05/19/21 22:00 07/14/21 21:06 Enoxaparin 40 Mg/0.4 Ml Inj SUB-Q 40 mg QDAY@2200 TUTU Administration Protocol Ibuprofen 600 mg 07/11/21 11:00 Ibuprofen 600 Mg Tab PO Q6H PRN Ear Pain Insulin Glargine 15 units 06/25/21 10:00 07/14/21 10:21 Insulin Glargine 100 Units/Ml SUB-Q 15 units DAILY TUTU Administration Insulin Human Lispro 0 unit 05/18/21 12:00 07/14/21 21:06 Insulin Lispro 100 Unit/Ml SUB-Q Not Given ACHS [facility] Protocol Ondansetron HCl 4 mg 04/16/21 14:00 05/30/21 10:07 Ondansetron 4 Mg/2 Ml Inj IV 4 mg Q8H PRN Administration Nausea And Vomiting Prednisone 5 mg 07/13/21 12:00 07/14/21 10:19 Prednisone 5 Mg Tab PO 5 mg QDAY TUTU Administration Sodium Chloride 10 ml 04/16/21 13:39 05/22/21 15:21 Sodium Chloride 0.9% 10 Ml Flush Syringe IV 10 ml PRN PRN Administration LINE FLUSH Zinc Sulfate 220 mg 04/16/21 22:00 07/14/21 21:07 Zinc Sulfate 220 Mg Cap PO 220 mg BID TUTU Administration Zolpidem Tartrate 10 mg 05/26/21 08:56 07/14/21 21:06 Zolpidem 5 Mg Tab PO 10 mg QHS PRN Administration Insomnia Nutrition/Malnutrition Assess - Dietary Evaluation Nutrition/Malnutrition Findings: Nutrition Notes Start: 04/23/21 07:4 1 Freq: Status: Active Protocol: Document 07/03/21 16:54 GB (Rec: 07/03/21 17:11 GB [id number]) Nutrition Notes Initial or Follow up Reassessment Current Diagnosis Respiratory Failure Other Pertinent Diagnosis oral thrush, COVID-19 pneu Current Diet consistent carbohydrate Labs/Tests 07/03: creatinine 0.3, K 3.2 Pertinent Medications Vit C, Vit D3, D5 (PRN), Prednisone, NaCl, Zn Sulfate Height 4 ft 11.84 in Weight 60.3 kg [place] Body Weight (kg) 45.09 BMI 26.1 Weight change and time frame 04/16/21: 74.843kg 05/17/21: 68.1kg 06/16/21: 60.3kg change of -14.54kg for -19.43% in 60 days. Per MD note: pt has been diuresed thorughout stay. Weight Status Overweight Subjective/Other Information MD notes 07/03: pt showing improvement, prednisone weaning down, possible weaning of O2. Last BM: 07/02 PO intake recorded at 50-100% Percent of energy/protein needs met: PO intake of meals meet 75% or greater of EEN Burn Absent Trauma Absent GI Symptoms None Food Allergy No Skin Integrity/Comment skin tear rt/lt buttocks Current % PO Good (75-100%) Minimum of two criteria No #3 Nutrition Diagnosis No nutrition diagnosis at this time Etiology respiratory failure As Evidenced by Signs and Symptoms recovering, good po, weight loss r/t diurese therapy #2 Nutrition Diagnosis Malnutrition Comments: Wt loss due to diurese for most of stay. PO intake is recorded at 75- 100% Etiology acute illness As Evidenced by Signs and Symptoms <50% EER in >5 days, >5% wt loss in 1 month Diagnosis Progress(for reassessment Resolved documentation) #1 Nutrition Diagnosis Inadequate oral intake Etiology ARF As Evidenced by Signs and Symptoms pt continues to meet 100%/93% of kcal/protein needs Diagnosis Progress(for reassessment Resolved documentation) Is patient on ventilator? No Is Patient Ambulatory and/or Out of Bed Yes REE-([place]-ambulatory/OOB) [ 1491.022 [id number]] Kcal/Kg value to use for calculation 25 Approximate Energy Requirements Using 1508 kcal/Kg Calculation Used for Recommendations Kcal/kg Additional Notes Pro needs 1-1.2g/kg @ 60k -72g/day Fluid needs 1ml/kcal or per MD Nutrition Intervention Change Diet Order: continue Nutrition Support: n/a Add Supplement/Snack (indicate name/kcal n/a /protein ) Goal #1 PO intake of meals to be 75% or greater daily for LOS Goal #2 Weight to stabilize +/-3% current weight for LOS Follow-Up By: 08/07/21 Additional Comments f/u: po intake, weight
[2021-07-15] MEDS: INSULIN LISPRO 100 UNIT/ML SUB-Q SCH ×4 (08:37→21:07)
[2021-07-15] MEDS: ASCORBIC ACID 500 MG TAB PO SCH (09:25)
[2021-07-15] MEDS: ZINC SULFATE 220 MG CAP PO SCH ×2 (09:26→21:07)
[2021-07-15] MEDS: CHOLECALCIFEROL (VIT D3) 1000 UNIT (25 mcg) TAB PO SCH (09:26)
[2021-07-15] MEDS: predniSONE 5 MG TAB PO SCH (09:26)
[2021-07-15] MEDS: INSULIN GLARGINE 100 UNITS/ML SUB-Q SCH (09:26)
[2021-07-15] MEDS: ALPRAZolam 1 MG TAB PO SCH ×2 (09:26→21:07)
[2021-07-15 09:53] LABS: Blood Urea Nitrogen 10 mg/dL (7-17); Calcium 9.1 mg/dL (8.4-10.2); Hemolysis Index 6
[2021-07-15 09:54] LABS: BUN/Creatinine Ratio 33
[2021-07-15] MEDS ORDERED: FUROSEMIDE 40 MG/4 ML INJ IV NR (13:00)
[2021-07-15] MEDS: ACETAMINOPHEN 325 MG TAB PO PRN (21:06)
[2021-07-15] MEDS: ENOXAPARIN 40 MG/0.4 ML INJ SUB-Q SCH (21:07)
[2021-07-16 04:52] LABS: Hemoglobin 12.5 gm/dl (10.1-14.3)
[2021-07-16 05:00] LABS: Hematocrit 39.2 % (30.3-42.9); Mean Corpuscular HGB Conc 32 % (30-34); Mean Corpuscular Volume 96 fl (79-97); Platelet Count 308 K/mm3 (140-440); Red Blood Count 4.08 M/mm3 (3.65-5.03); Red Cell Distribution Width 17.1 % (13.2-15.2)
[2021-07-16 05:02] LABS: Blood Urea Nitrogen 12 mg/dL (7-17); Calcium 9.1 mg/dL (8.4-10.2); Hemolysis Index 7
[2021-07-16 05:05] LABS: BUN/Creatinine Ratio 60
[2021-07-16] MEDS: INSULIN LISPRO 100 UNIT/ML SUB-Q SCH ×4 (07:36→22:05)
[2021-07-16] MEDS ORDERED: POTASSIUM CHLORIDE ER 20 MEQ TAB PO NR (08:00)
[2021-07-16] MEDS: ZINC SULFATE 220 MG CAP PO SCH ×2 (10:53→21:41)
[2021-07-16] MEDS: INSULIN GLARGINE 100 UNITS/ML SUB-Q SCH (10:53)
[2021-07-16] MEDS: ASCORBIC ACID 500 MG TAB PO SCH (10:53)
[2021-07-16] MEDS: CHOLECALCIFEROL (VIT D3) 1000 UNIT (25 mcg) TAB PO SCH (10:53)
[2021-07-16] MEDS: predniSONE 5 MG TAB PO SCH (10:53)
[2021-07-16] MEDS: ALPRAZolam 1 MG TAB PO SCH ×2 (10:53→21:41)
--- NOTE | 2021-07-16 14:23 | Progress Note ---
Assessment and Plan Assessment and plan: #Acute hypoxic respiratory failure -Currently on high flow nasal cannula (40 L, 70% FiO2) -continue prednisone 5mg qday -Pulmonology following, assistance appreciated -Referral sent for LTACH (patient stay 90 days) -encouraged prone positioning -will assess need for lasix PRN #Heart failure with preserved ejection fraction -TTE: LVEF 55-60% with diastolic dysfunction -will continue to monitor for signs of fluid overload #COVID-19 infection -Continue Covid vitamins #Type 2 diabetes -Continue Lantus 15 units daily and sliding scale insulin #Dysuria #Possible UTI -Improving -Urinalysis ordered 07/09, not collected -s/p Levaquin #Anxiety -Stable -Continue Xanax #DVT prophylaxis -Lovenox 40 daily #Deconditioning -Will benefit from SNF after prolonged hospital stay, Resolved issues #Sepsis secondary to COVID-19 #Iatrogenic diarrhea #Hypomagnesemia #Hyponatremia #Protein calorie malnutrition Disposition Plan: Continue medical management Total Time Spent with Patient (Minutes): 40 History Interval history: No acute events overnight. Patient endorses constipation of 48 hours. Hospitalist Physical - Constitutional Vitals: Temp Pulse Resp BP Pulse Ox 98.0 F 109 H 22 115/56 96 07/16/21 12:02 07/16/21 12:02 07/16/21 12:02 07/16/21 12:02 07/16/21 14:18 General appearance: Present: no acute distress, well-nourished, obese - EENT Eyes: Present: PERRL, EOM intact ENT: hearing intact, clear oral mucosa, dentition normal - Neck Neck: Present: supple, normal ROM - Respiratory Respiratory effort: normal Respiratory: bilateral: CTA Details: On high flow nasal cannula 40 L 70% - Cardiovascular Rhythm: regular Heart Sounds: Present: S1 & S2 - Extremities Extremities: no ischemia, pulses intact, pulses symmetrical, No edema, normal temperature, normal color Peripheral Pulses: within normal limits - Abdominal General gastrointestinal: soft, non-tender, non-distended, normal bowel sounds - Integumentary Integumentary: Present: clear, warm, dry - Psychiatric Psychiatric: appropriate mood/affect, intact judgment & insight, memory intact, cooperative, other (Anxious) - Neurologic Neurologic: CNII-XII intact, moves all extremities - Allied Health Allied health notes reviewed: nursing Results - Labs CBC & Chem 7: 07/16/21 04:40 07/16/21 04:40 Labs: Laboratory Last Values WBC 8.0 K/mm3 (4.5-11.0) 07/16/21 04:40 RBC 4.08 M/mm3 (3.65-5.03) 07/16/21 04:40 Hgb 12.5 gm/dl (10.1-14.3) 07/16/21 04:40 Hct 39.2 % (30.3-42.9) 07/16/21 04:40 MCV 96 fl (79-97) 07/16/21 04:40 MCH 31 pg (28-32) 07/16/21 04:40 MCHC 32 % (30-34) 07/16/21 04:40 RDW 17.1 % (13.2-15.2) H 07/16/21 04:40 Plt Count 308 K/mm3 (140-440) 07/16/21 04:40 Lymph % (Auto) 15.6 % (13.4-35.0) 07/07/21 06:00 Campbell % (Auto) 6.6 % (0.0-7.3) 07/07/21 06:00 Eos % (Auto) 1.9 % (0.0-4.3) 07/07/21 06:00 Baso % (Auto) 1.0 % (0.0-1.8) 07/07/21 06:00 Lymph # (Auto) 2.5 K/mm3 (1.2-5.4) 07/07/21 06:00 Campbell # (Auto) 1.1 K/mm3 (0.0-0.8) H 07/07/21 06:00 Eos # (Auto) 0.3 K/mm3 (0.0-0.4) 07/07/21 06:00 Baso # (Auto) 0.2 K/mm3 (0.0-0.1) H 07/07/21 06:00 Add Manual Diff Complete 07/09/21 04:45 Total Counted 100 07/09/21 04:45 Seg Neutrophils % 74.9 % (40.0-70.0) H 07/07/21 06:00 Seg Neuts % (Manual) 82.0 % (40.0-70.0) H 07/09/21 04:45 Band Neutrophils % 1.0 % 05/12/21 04:05 Lymphocytes % (Manual) 13.0 % (13.4-35.0) L 07/09/21 04:45 Monocytes % (Manual) 3.0 % (0.0-7.3) 07/09/21 04:45 Eosinophils % (Manual) 2.0 % (0.0-4.3) 07/09/21 04:45 Nucleated RBC % Not Reportable 07/09/21 04:45 Seg Neutrophils # 12.1 K/mm3 (1.8-7.7) H 07/07/21 06:00 Seg Neutrophils # Man 7.8 K/mm3 (1.8-7.7) H 07/09/21 04:45 Band Neutrophils # 0.0 K/mm3 07/09/21 04:45 Lymphocytes # (Manual) 1.2 K/mm3 (1.2-5.4) 07/09/21 04:45 Abs React Lymphs (Man) 0.0 K/mm3 07/09/21 04:45 Monocytes # (Manual) 0.3 K/mm3 (0.0-0.8) 07/09/21 04:45 Eosinophils # (Manual) 0.2 K/mm3 (0.0-0.4) 07/09/21 04:45 Basophils # (Manual) 0.0 K/mm3 (0.0-0.1) 07/09/21 04:45 Metamyelocytes # 0.0 K/mm3 07/09/21 04:45 Myelocytes # 0.0 K/mm3 07/09/21 04:45 Promyelocytes # 0.0 K/mm3 07/09/21 04:45 Blast Cells # 0.0 K/mm3 07/09/21 04:45 WBC Morphology Not Reportable 07/09/21 04:45 Hypersegmented Neuts Not Reportable 07/09/21 04:45 Hyposegmented Neuts Not Reportable 07/09/21 04:45 Hypogranular Neuts Not Reportable 07/09/21 04:45 Smudge Cells Not Reportable 07/09/21 04:45 Toxic Granulation Not Reportable 07/09/21 04:45 Toxic Vacuolation Not Reportable 07/09/21 04:45 Dohle Bodies Not Reportable 07/09/21 04:45 Pelger-Huet Anomaly Not Reportable 07/09/21 04:45 Janelle Rods Not Reportable 07/09/21 04:45 Platelet Estimate Consistent w auto 07/09/21 04:45 Clumped Platelets Not Reportable 07/09/21 04:45 Plt Clumps, EDTA Not Reportable 07/09/21 04:45 Large Platelets Not Reportable 07/09/21 04:45 Giant Platelets Rare 07/09/21 04:45 Platelet Satelliting Not Reportable 07/09/21 04:45 Plt Morphology Comment Not Reportable 07/09/21 04:45 RBC Morphology Not Reportable 07/09/21 04:45 Dimorphic RBCs Not Reportable 07/09/21 04:45 Polychromasia Not Reportable 07/09/21 04:45 Hypochromasia Few 07/09/21 04:45 Poikilocytosis Not Reportable 07/09/21 04:45 Anisocytosis Not Reportable 07/09/21 04:45 Microcytosis Not Reportable 07/09/21 04:45 Macrocytosis Not Reportable 07/09/21 04:45 Spherocytes Not Reportable 07/09/21 04:45 Pappenheimer Bodies Not Reportable 07/09/21 04:45 Sickle Cells Not Reportable 07/09/21 04:45 Target Cells Not Reportable 07/09/21 04:45 Tear Drop Cells Not Reportable 07/09/21 04:45 Ovalocytes Not Reportable 07/09/21 04:45 Stomatocytes 1+ 07/09/21 04:45 Helmet Cells Not Reportable 07/09/21 04:45 Ahuja-Prentiss Bodies Not Reportable 07/09/21 04:45 [place] Rings Not Reportable 07/09/21 04:45 Crow Cells Not Reportable 07/09/21 04:45 Bite Cells Not Reportable 07/09/21 04:45 Crenated Cell Not Reportable 07/09/21 04:45 Elliptocytes Not Reportable 07/09/21 04:45 Acanthocytes (Spur) Not Reportable 07/09/21 04:45 Rouleaux Not Reportable 07/09/21 04:45 Hemoglobin C Crystals Not Reportable 07/09/21 04:45 Schistocytes Not Reportable 07/09/21 04:45 Malaria parasites Not Reportable 07/09/21 04:45 Justin Bodies Not Reportable 07/09/21 04:45 Hem Pathologist Commnt No 07/09/21 04:45 D-Dimer 638.35 ng/mlDDU (0-234) H 07/09/21 04:45 ABG pH 7.403 pH Units (7.350-7.450) 05/14/21 02:23 POC ABG pCO2 45.4 mmHg (32.0-48.0) 05/03/21 04:49 ABG pCO2 50.2 mm Hg 05/14/21 02:23 POC ABG pO2 65.3 mmHg (83-108) L 05/03/21 04:49 ABG pO2 130.3 mm Hg (80.0-90.0) H 05/14/21 02:23 POC ABG HCO3 18.5 05/03/21 04:49 ABG HCO3 30.6 mmol/L (20.0-26.0) H 05/14/21 02:23 ABG O2 Saturation 98.5 % (95.0-99.0) 05/14/21 02:23 ABG O2 Content 17.9 (0.0-44) 05/14/21 02:23 POC ABG Base Excess -8.9 05/03/21 04:49 ABG Base Excess 4.9 mmol/L (-2.0-3.0) H 05/14/21 02:23 ABG Hemoglobin 13.0 gm/dl (12.0-16.0) 05/14/21 02:23 ABG Oxyhemoglobin 87.8 (94-98) L 05/03/21 04:49 ABG Carboxyhemoglobin 1.4 % (0.0-5.0) 05/14/21 02:23 ABG Methemoglobin 0.6 % (0.0-1.5) 05/14/21 02:23 ABG Sodium 133.0 mmol/L (136.0-145.0) L 05/03/21 04:49 ABG Potassium 3.9 mmol/L (3.40-4.50) 05/03/21 04:49 ABG Chloride 97.0 mmol/L (98-107) L 05/03/21 04:49 ABG Glucose 403 mg/dL (65-95) H 05/03/21 04:49 Oxyhemoglobin 96.5 % (95.0-99.0) 05/14/21 02:23 Carboxyhemoglobin 0.6 (0.5-1.5) 05/03/21 04:49 FiO2 90 % 05/14/21 02:23 FiO2 % 100.0 05/03/21 04:49 Sodium 140 mmol/L (137-145) 07/16/21 04:40 Potassium 3.4 mmol/L (3.6-5.0) L 07/16/21 04:40 Chloride 94.6 mmol/L (98-107) L 07/16/21 04:40 Carbon Dioxide 36 mmol/L (22-30) H 07/16/21 04:40 Anion Gap 13 mmol/L 07/16/21 04:40 BUN 12 mg/dL (7-17) 07/16/21 04:40 Creatinine < 0.2 mg/dL (0.6-1.2) L 07/16/21 04:40 Estimated GFR > 60 ml/min 07/16/21 04:40 BUN/Creatinine Ratio 60 % 07/16/21 04:40 Glucose 101 mg/dL (65-100) H 07/16/21 04:40 POC Glucose 184 mg/dL (70-105) H 07/16/21 11:11 Hemoglobin A1c 8.5 % (4-6) H 04/18/21 07:36 Calcium 9.1 mg/dL (8.4-10.2) 07/16/21 04:40 Phosphorus 3.60 mg/dL (2.5-4.5) 07/09/21 04:45 Magnesium 1.90 mg/dL (1.7-2.3) 07/09/21 04:45 Ferritin 155.9 ng/mL (10.0-200.0) 07/09/21 04:45 Total Bilirubin 0.30 mg/dL (0.1-1.2) 06/28/21 05:43 AST 19 units/L (5-40) 06/28/21 05:43 ALT 63 units/L (7-56) H 06/28/21 05:43 Alkaline Phosphatase 61 units/L (35-129) 06/28/21 05:43 Lactate Dehydrogenase 475 units/L (91-180) H 06/05/21 05:26 C-Reactive Protein 4.30 mg/dL (0.00-1.30) H 07/09/21 04:45 NT-Pro-B Natriuret Pep 59.45 pg/mL (0-450) 07/07/21 13:40 Total Protein 6.5 g/dL (6.3-8.2) 06/28/21 05:43 Albumin 3.3 g/dL (3.9-5) L 06/28/21 05:43 Albumin/Globulin Ratio 1.0 % 06/28/21 05:43 Triglycerides < 9 mg/dL (2-149) 05/03/21 04:30 Procalcitonin < 0.05 ng/mL (<0.15) 05/23/21 09:50 Arterial Blood Glucose 403 mg/dL (65-95) H 05/03/21 04:49 Arterial Blood Ionized Calcium 4.9 mg/dL (4.6-5.3) 05/03/21 04:49 Coronavirus (PCR) Positive (Negative) A 06/05/21 08:30 Amos/IV: Voiding Method Bedpan Active Medications - Current Medications Current Medications: Generic Name Dose Route Start Last Admin Trade Name Freq PRN Reason Stop Dose Admin Acetaminophen 650 mg 07/02/21 17:48 07/15/21 21:06 Acetaminophen 325 Mg Tab PO 650 mg Q4H PRN Administration Pain, Mild (1-3) Albuterol 2.5 mg 04/16/21 13:39 04/21/21 20:39 Albuterol 2.5 Mg/3 Ml Nebu IH 2.5 mg Q4HRT PRN Administration Shortness Of Breath Alprazolam 2 mg 07/04/21 12:00 07/16/21 10:53 Alprazolam 1 Mg Tab PO 2 mg BID TUTU Administration Ascorbic Acid 500 mg 04/24/21 10:00 07/16/21 10:53 Ascorbic Acid 500 Mg Tab PO 500 mg QDAY TUTU Administration Cholecalciferol 1,000 unit 04/17/21 10:00 07/16/21 10:53 Cholecalciferol (Vit D3) 1000 Unit (25 Mcg) Tab PO 1,000 unit QDAY TUTU Administration Enoxaparin Sodium 40 mg 05/19/21 22:00 07/15/21 21:07 Enoxaparin 40 Mg/0.4 Ml Inj SUB-Q 40 mg QDAY@2200 TUTU Administration Protocol Ibuprofen 600 mg 07/11/21 11:00 Ibuprofen 600 Mg Tab PO Q6H PRN Ear Pain Insulin Glargine 15 units 06/25/21 10:00 07/16/21 10:53 Insulin Glargine 100 Units/Ml SUB-Q 15 units DAILY TUTU Administration Insulin Human Lispro 0 unit 05/18/21 12:00 07/16/21 12:12 Insulin Lispro 100 Unit/Ml SUB-Q 3 unit ACHS TUTU Administration Protocol Ondansetron HCl 4 mg 04/16/21 14:00 05/30/21 10:07 Ondansetron 4 Mg/2 Ml Inj IV 4 mg Q8H PRN Administration Nausea And Vomiting Polyethylene Glycol 17 gm 07/16/21 14:20 Polyethylene Glycol 3350 17 Gm Powder PO QDAY PRN Constipation Polyethylene Glycol 17 gm 07/16/21 14:20 Polyethylene Glycol 3350 17 Gm Powder PO 07/16/21 14:21 ONCE ONE Prednisone 5 mg 07/13/21 12:00 07/16/21 10:53 Prednisone 5 Mg Tab PO 5 mg QDAY TUTU Administration Sodium Chloride 10 ml 04/16/21 13:39 07/15/21 21:07 Sodium Chloride 0.9% 10 Ml Flush Syringe IV 10 ml PRN PRN Administration LINE FLUSH Zinc Sulfate 220 mg 04/16/21 22:00 07/16/21 10:53 Zinc Sulfate 220 Mg Cap PO 220 mg BID TUTU Administration Zolpidem Tartrate 10 mg 05/26/21 08:56 07/14/21 21:06 Zolpidem 5 Mg Tab PO 10 mg QHS PRN Administration Insomnia Nutrition/Malnutrition Assess - Dietary Evaluation Nutrition/Malnutrition Findings: Nutrition Notes Start: 04/23/21 07:41 Freq: Status: Active Protocol: Document 07/03/21 16:54 GB (Rec: 07/03/21 17:11 GB [id number]) Nutrition Notes Initial or Follow up Reassessment Current Diagnosis Respiratory Failure Other Pertinent Diagnosis oral thrush, COVID-19 pneu Current Diet consistent carbohydrate Labs/Tests 07/03: creatinine 0.3, K 3.2 Pertinent Medications Vit C, Vit D3, D5 (PRN), Prednisone, NaCl, Zn Sulfate Height 4 ft 11.84 in Weight 60.3 kg [place] Body Weight (kg) 45.09 BMI 26.1 Weight change and time frame 04/16/21: 74.843kg 05/17/21: 68.1kg 06/16/21: 60.3kg change of -14.54kg for -19.43% in 60 days. Per MD note: pt has been diuresed thorughout stay. Weight Status Overweight Subjective/Other Information MD notes 07/03: pt showing improvement, prednisone weaning down, possible weaning of O2. Last BM: 07/02 PO intake recorded at 50-100% Percent of energy/protein needs met: PO intake of meals meet 75% or greater of EEN Burn Absent Trauma Absent GI Symptoms None Food Allergy No Skin Integrity/Comment skin tear rt/lt buttocks Current % PO Good (75-100%) Minimum of two criteria No #3 Nutrition Diagnosis No nutrition diagnosis at this time Etiology respiratory failure As Evidenced by Signs and Symptoms recovering, good po, weight loss r/t diurese therapy #2 Nutrition Diagnosis Malnutrition Comments: Wt loss due to diurese for most of stay. PO intake is recorded at 75- 100% Etiology acute illness As Evidenced by Signs and Symptoms <50% EER in >5 days, >5% wt loss in 1 month Diagnosis Progress(for reassessment Resolved documentation) #1 Nutrition Diagnosis Inadequate oral intake Etiology ARF As Evidenced by Signs and Symptoms pt continues to meet 100%/93% of kcal/protein needs Diagnosis Progress(for reassessment Resolved documentation) Is patient on ventilator? No Is Patient Ambulatory and/or Out of Bed Yes REE-([facility]-ambulatory/OOB) [ 1491.022 [id number]] Kcal/Kg value to use for calculation 25 Approximate Energy Requirements Using 1508 kcal/Kg Calculation Used for Recommendations Kcal/kg Additional Notes Pro needs 1-1.2g/kg @ 60k -72g/day Fluid needs 1ml/kcal or per MD Nutrition Intervention Change Diet Order: continue Nutrition Support: n/a Add Supplement/Snack (indicate name/kcal n/a /protein ) Goal #1 PO intake of meals to be 75% or greater daily for LOS Goal #2 Weight to stabilize +/-3% current weight for LOS Follow-Up By: 08/07/21 Additional Comments f/u: po intake, weight - Attestation Statement I have reviewed and agreed w/ Malnutrition eval & tx plan: Yes
[2021-07-16] MEDS ORDERED: POLYETHYLENE GLYCOL 3350 17 GM POWDER PO NR (15:00)
[2021-07-16] MEDS: ENOXAPARIN 40 MG/0.4 ML INJ SUB-Q SCH (21:41)
[2021-07-16] MEDS: IBUPROFEN 600 MG TAB PO PRN (22:03)
[2021-07-16] MEDS: ZOLPIDEM 5 MG TAB PO PRN (22:04)
[2021-07-17] MEDS: INSULIN LISPRO 100 UNIT/ML SUB-Q SCH ×4 (09:03→21:41)
[2021-07-17] MEDS: ASCORBIC ACID 500 MG TAB PO SCH (09:07)
[2021-07-17] MEDS: ALPRAZolam 1 MG TAB PO SCH ×2 (09:07→21:41)
[2021-07-17] MEDS: ZINC SULFATE 220 MG CAP PO SCH ×2 (09:08→21:40)
[2021-07-17] MEDS: CHOLECALCIFEROL (VIT D3) 1000 UNIT (25 mcg) TAB PO SCH (09:08)
[2021-07-17] MEDS: predniSONE 5 MG TAB PO SCH (09:08)
[2021-07-17] MEDS: INSULIN GLARGINE 100 UNITS/ML SUB-Q SCH (09:08)
--- NOTE | 2021-07-17 09:45 | Progress Note ---
Assessment and Plan 50 y/o female with acute respiratory failure secondary to COVID19 pneumonia. 07/17/21: will stop steroids today. Hold on lasix given marginal blood pressure. Guarded prognosis. 07/15/21: Lasix today. Positive fluid balance all weekend based on I/O. Prone. Wean for sats >88% 07/12/21: Gave lasix 40mg IV again this am. Per charting yesterday was the first net negative day. Suggest PRN diuresis over the weekend as well. My part ner is rounding but will likely see as needed. Continue to wean for sats >88% 07/11/21: Lasix 40mg IV this am. Attempt to prone if able. Attempt to achieve daily net negative state. Wean for sats >88%. Guarded prognosis. Will change prednisone to 5mg daily starting tomorrow. 07/09/21: Echo shows diastolic dysfunction. Will given an additional 40 of IV lasix today. Monitor daily and wean aggressively for sats >88% 07/08/21: Worsening CXR, Gave lasix yesterday and will give again today. Suggest checking echo, ekg. Prognosis is poor now with this change. We have seen COVID cause CAD with NC. 07/05/21: Will monitor over the weekend. Worst case scenario, may need to go back up to Prednisone 20 at least. Prone if able. Unsure why all of sudden oxygen requirement increasing. Will repeat CXR. 07/03/21: Down to 10 of prednisone. Will keep through the weekend and then d rop to 5 on Thursday. PT/OT assessment if not done. Suggest maybe weaning flow now given FiO2 down to 50%. Prognosis is still guarded. 07/01/21: Will drop steroids to 10mg daily starting tomorrow. Wean for sats >88%. Prone. PT/OT should be seeing now that oxygen requirement is down more. 06/28/21: Continue to wean as tolerated. Will drop steroids down even further next week. Will see PRN over the weekend. 06/26/21: Will drop steroids down to 20 starting tomorrow. Prone. Continue to wean as tolerated. 06/24/21: Continue Pred, will drop to 20 daily tomorrow. Prone if able. Hopef ul they can wean FiO2 more. May need to consider increasing flow for a while. 06/21/21: Continue pred at 40, will decrease likely Thursday/Thursday to 20 daily. Prone if able. Continue to wean as tolerated. Prognosis still remains guarded. 06/20/21: Will drop steroids down to 40 today. Proning. Continue to wean FiO2. 06/18/21: Wean Fio2 for sats >88%. Please encourage proning. Drop steroids down to 40 on . 06/14/21: Continue oral steroid therapy. Will do further weaning next week. Wean for sats >88% and prone as tolerated. Will see as needed over the weekend. 06/13/21: Will change to prednisone 60 daily starting tomorrow. Prone if able and wean for sats >88% 06/11/21: no new recs, will change to oral steroids tomorrow, continue to prone if able and wean for sats >88% 06/10/21: Will change to oral steroids on Thursday to begin prolonged taper 06/06/21: Continue to wean as tolerated, will drop steroids on tomorrow. 06/04/21: Clinically no change. Will drop steroids down the end of this week. 05/31/21: Clinically no change. Not eligible for LTACH. Encourage Proning. Will drop steroids down to 40 q8 05/29/21: No acute changes clinically. Still on HFNC but not really able to wean. Continue to encourage proning. Will drop steroids further on Thursday. 05/27/21: No improvement over the weekend but also no worsening. No other strategies to offer. Please continue to encourage patient to prone. I dropped steroids on yesterday. Will wean more later in the week. 05/24/21: No new recs again for today. Will see as needed over the weekend but follow chart peripherally for changes. 05/22/21: No new recs for today. Prognosis remains guarded. 05/21/21: Wean as tolerated. Prone if able. Guarded prognosis 05/20/21: COntinue current level of care. 05/17/21: Prone if possible. Wean FiO2 for sats >88%. Continue scheduled ativan. Prognosis is very very guarded. Unfunded so not a candidate for LTACH 05/16/21: Prone if willing. Wean FIO2 if patient will allow. Anxiety control. Prognosis still remains very guarded. 05/15/21: Not sure if MAR is accurate but may have only gotten one dose of scheduled anixolytic therapy. Continue proning as tolerated, and wean FiO2 and flow for sats >88%. Prognosi remains very very guarded to poor. 05/14/21: Will discontinue the buspar and make the ativan scheduled but will do q6 as oppose to q4 and attempt to leave parameters for nursing when not to give. If anxiety could be controlled, feel that patient could be weaned further. She has no funding so she is not a candidate for LTACH. Prone if possible. Guarded prognosis. This is her 28 day. 05/13/21: Ordered buspar 10 BID to start with to help with anxiety. Please continue to wean FiO2 as tolerated. Will remind nurse that there is PRN ativan available. Continue higher doses of steroids. Prone if able. 05/12/21: Patient may need something longer acting for anxiety. Per chart has not gotten any ativan in days. Would be ok with either buspar or low dose klonopin bid. COntinue higher doses of steroids as patient seems to be responding. Prone if possible. 05/11/21: Continue high doses of steroids and continue to wean for sats >88%. Please encourage proning. 05/10/21: Will continue this dose of steroid at least through the weekend and assess for improvement. will speak with RT about aggressive weaning. Full dose anticoagulation continues. Very very guarded to poor prognosis. 05/09/21: Going to consider increasing steroids to 125q8, maybe as early as tomorrow. continue full dose anticoagulation. 05/08/21: Continue anticoagulation and steroids. Prone if possible. Anxiety control. No objection to CTA if this can happen. Very very guarded prognosis. 05/07/21: Spoke with IMS, not opposed to full dose anticoagulation. If patient goes back on NRB HFNC combo may need to consider restarting PPN again. Encourage proning. Guarded prognosis. 05/06/21: Continue to wean FiO2 and flow for sats >88%. Tolerating diet now so will stop PPN. Continue anxiety control. Continue IV steroids. Would not obj ect to transfer to [facility] if bed available. Not sure why she was titrated back up to 100% from 85 as all sats documented in the RT's notes were acceptable. Same for under vital signs as well. 05/03/21: Set back last night from yesterday. Continue bipap therapy for now and attempt HFNC maybe later this afternoon. Continue to use PRN ativan but may need to schedule as she likely took off mask from anxiety. Continue IV steroids. Hold on transfer to COVID Floor. 05/02/21: Continue to wean FiO2 as tolerated for sats >88%. Will continue bipap at night. Patient has no funding so not a candidate for LTACH. Given that she has been stable and not requiring the combo of HFNC and NRB, will consider moving to COVID floor. 05/01/21: Continue to wean FiO2 for sats >88%. A sat of 90 is more than acceptable and oxygen should not be increased for this unless patient desats and remains at a sat lower than 88. Bipap at night to give some form of relief and HFNC during the day. Currently on just this alone which is improvement. Ok with daily diuresis but must monitor renal function and BP closely. She was over diuresed last week and we ended up giving fluid back. Prognosis remains guarded. 04/30/21: Will start CLinimix today for nutritional support, without electrolytes. Check labs in am. Prone if able. Continue precedx for anxiety. Very very guarded prognosis. Attempting our best to not intubate. 04/29/21: Continue precedex. Continue IV solumedrol. Prone if able. Guarded prognosis. 04/28/21: Continue Precedex. Picc team attempting to place line now. Stable on Bipap. Ordered steroids IV solumedrol to start today. Prognosis remains guarded, still at very high risk for intubation. 04/27/21: Hypotension improving/improved. Hold on any further lasix dosing. Continue precedex to help with anxeity. later today please attempt HFNC with NRB if needed. Attempt to feed if possible. Steroids end today, please order solumedrol 40q8 to start tomorrow (04/28/21). guarded prognosis. 04/26/21: Hypotension today, most likely from precedex use and diuresis that I did the last several days. Will bolus again today. Consider midodrine if BP does not respond. 04/25/21: Lasix again today. Keep PRN ativan for now. Hold on precedex for now. Guarded prognosis. Labs ordered for tomorrow. 04/24/21: Lasix today. Will also start patient on low dose PRN ativan. If this does not help will then try precedex. Guarded prognosis. 04/23/21: Prone as tolerated. No lasix today. Continue decadron. Guarded prognosis. High risk for intubation and high mortality with intubation. 04/19/21: Prone as tolerated during the day and sleep prone at night. Continue IV remdesivir and steroids. Did get actemra. Guarded prognosis. 1. Daily net negative state 2. Prone if possible 3. IV remdesivir. 4. Should be a candidate for Actemra 5. IV steroids 6. Guarded Prognosis Subjective Date of service: 07/17/21 Principal diagnosis: Covid-19 Interval history: No acute events. Still on combo therapy with HFNC and NRB Objective Vital Signs - 12hr 07/16/21 07/16/21 07/16/21 22:00 22:03 23:31 Temperature 97.5 F L Pulse Rate 92 H Respiratory 20 Rate Blood Pressure 97/42 O2 Sat by Pulse 95 93 96 Oximetry 07/17/21 04:00 Temperature Pulse Rate Respiratory Rate Blood Pressure O2 Sat by Pulse 95 Oximetry Constitutional: no acute distress, alert Eyes: non-icteric ENT: oropharynx moist Neck: supple Effort: normal Ascultation: Bilateral: diminished breath sounds Cardiovascular: regular rate and rhythm Gastrointestinal: normoactive bowel sounds, soft, non-tender, non-distended Integumentary: normal Extremities: no cyanosis, no edema, pink and warm Neurologic: normal mental status, non-focal exam, pupils equal and round, CN II- XII normal Psychiatric: mood appropriate, affect normal CBC and BMP: 07/16/21 04:40 07/16/21 04:40 ABG, PT/INR, D-dimer: ABG ABG pH 7.403 pH Units (7.350-7.450) 05/14/21 02:23 POC ABG pCO2 45.4 mmHg (32.0-48.0) 05/03/21 04:49 ABG pCO2 50.2 mm Hg 05/14/21 02:23 POC ABG pO2 65.3 mmHg (83-108) L 05/03/21 04:49 ABG pO2 130.3 mm Hg (80.0-90.0) H 05/14/21 02:23 POC ABG HCO3 18.5 05/03/21 04:49 ABG O2 Saturation 98.5 % (95.0-99.0) 05/14/21 02:23 PT/INR, D-dimer D-Dimer 638.35 ng/mlDDU (0-234) H 07/09/21 04:45 Abnormal lab findings: Abnormal Labs 04/16/21 04/16/21 04/16/21 11:42 11:42 11:42 WBC MCH MCHC RDW 16.1 H Lymph % (Auto) 7.8 L Lymph # (Auto) 0.8 L [place] # (Auto) Baso # (Auto) Seg Neutrophils % 87.7 H Seg Neuts % (Manual) Lymphocytes % (Manual) Seg Neutrophils # 8.5 H Seg Neutrophils # Man Lymphocytes # (Manual) D-Dimer 338.70 H ABG pH POC ABG pO2 ABG pO2 ABG HCO3 ABG O2 Saturation ABG Base Excess ABG Oxyhemoglobin ABG Sodium ABG Chloride ABG Glucose Oxyhemoglobin Carboxyhemoglobin Sodium Potassium Chloride Carbon Dioxide BUN Creatinine Glucose 194 H POC Glucose Hemoglobin A1c Ferritin AST ALT Alkaline Phosphatase Lactate Dehydrogenase C-Reactive Protein Total Protein 8.4 H Albumin 3.8 L Arterial Blood Glucose Coronavirus (PCR) 04/16/21 04/16/21 04/17/21 11:42 11:42 03:50 WBC MCH MCHC RDW 16.0 H Lymph % (Auto) 7.7 L Lymph # (Auto) 0.6 L [place] # (Auto) Baso # (Auto) Seg Neutrophils % 89.8 H Seg Neuts % (Manual) Lymphocytes % (Manual) Seg Neutrophils # Seg Neutrophils # Man Lymphocytes # (Manual) D-Dimer ABG pH POC ABG pO2 ABG pO2 ABG HCO3 ABG O2 Saturation ABG Base Excess ABG Oxyhemoglobin ABG Sodium ABG Chloride ABG Glucose Oxyhemoglobin Carboxyhemoglobin Sodium Potassium Chloride Carbon Dioxide BUN Creatinine Glucose 195 H POC Glucose Hemoglobin A1c Ferritin 254.3 H AST ALT Alkaline Phosphatase Lactate Dehydrogenase 359 H C-Reactive Protein 15.20 H Total Protein Albumin Arterial Blood Glucose Coronavirus (PCR) 04/17/21 04/17/2104/17/21 03:50 08:26 08:26 WBC MCH MCHC RDW Lymph % (Auto) Lymph # (Auto) [place] # (Auto) Baso # (Auto) Seg Neutrophils % Seg Neuts % (Manual) Lymphocytes % (Manual) Seg Neutrophils # Seg Neutrophils # Man Lymphocytes # (Manual) D-Dimer 262.48 H ABG pH POC ABG pO2 ABG pO2 ABG HCO3 ABG O2 Saturation ABG Base Excess ABG Oxyhemoglobin ABG Sodium ABG Chloride ABG Glucose Oxyhemoglobin Carboxyhemoglobin Sodium Potassium Chloride Carbon Dioxide BUN 20 H Creatinine 0.5 L Glucose 249 H 225 H POC Glucose Hemoglobin A1c Ferritin AST ALT Alkaline Phosphatase Lactate Dehydrogenase 338 H C-Reactive Protein 17.20 H Total Protein Albumin 3.2 L Arterial Blood Glucose Coronavirus (PCR) 04/17/21 04/17/21 04/17/21 08:26 15:04 Unknown WBC MCH MCHC RDW Lymph % (Auto) Lymph # (Auto) [place] # (Auto) Baso # (Auto) Seg Neutrophils % Seg Neuts % (Manual) Lymphocytes % (Manual) Seg Neutrophils # Seg Neutrophils # Man Lymphocytes # (Manual) D-Dimer ABG pH POC ABG pO2 ABG pO2 ABG HCO3 ABG O2 Saturation ABG Base Excess ABG Oxyhemoglobin ABG Sodium ABG Chloride ABG Glucose Oxyhemoglobin Carboxyhemoglobin Sodium Potassium Chloride Carbon Dioxide BUN 20 H Creatinine 0.5 L Glucose 246 H POC Glucose Hemoglobin A1c Ferritin 392.0 H AST ALT Alkaline Phosphatase Lactate Dehydrogenase C-Reactive Protein Total Protein 8.3 H Albumin 3.1 L Arterial Blood Glucose Coronavirus (PCR) Positive A 04/18/21 04/18/21 04/18/21 05:06 05:06 07:36 WBC 11.6 H MCH MCHC RDW 16.1 H Lymph % (Auto) Lymph # (Auto) [place] # (Auto) Baso # (Auto) Seg Neutrophils % Seg Neuts % (Manual) Lymphocytes % (Manual) Seg Neutrophils # Seg Neutrophils # Man Lymphocytes # (Manual) D-Dimer ABG pH POC ABG pO2 ABG pO2 ABG HCO3 ABG O2 Saturation ABG Base Excess ABG Oxyhemoglobin ABG Sodium ABG Chloride ABG Glucose Oxyhemoglobin Carboxyhemoglobin Sodium Potassium 5.2 H Chloride Carbon Dioxide BUN 22 H Creatinine 0.5 L Glucose 315 H POC Glucose Hemoglobin A1c 8.5 H Ferritin AST ALT Alkaline Phosphatase Lactate Dehydrogenase C-Reactive Protein Total Protein Albumin 3.3 L Arterial Blood Glucose Coronavirus (PCR) 04/18/21 04/18/21 04/18/21 11:59 16:43 23:24 WBC MCH MCHC RDW Lymph % (Auto) Lymph # (Auto) [place] # (Auto) Baso # (Auto) Seg Neutrophils % Seg Neuts % (Manual) Lymphocytes % (Manual) Seg Neutrophils # Seg Neutrophils # Man Lymphocytes # (Manual) D-Dimer ABG pH POC ABG pO2 ABG pO2 ABG HCO3 ABG O2 Saturation ABG Base Excess ABG Oxyhemoglobin ABG Sodium ABG Chloride ABG Glucose Oxyhemoglobin Carboxyhemoglobin Sodium Potassium Chloride Carbon Dioxide BUN Creatinine Glucose POC Glucose 284 H 273 H 290 H Hemoglobin A1c Ferritin AST ALT Alkaline Phosphatase Lactate Dehydrogenase C-Reactive Protein Total Protein Albumin Arterial Blood Glucose Coronavirus (PCR) 04/19/21 04/19/21 04/19/21 04:19 04:19 08:10 WBC MCH MCHC RDW 15.7 H Lymph % (Auto) Lymph # (Auto) [place] # (Auto) Baso # (Auto) Seg Neutrophils % Seg Neuts % (Manual) Lymphocytes % (Manual) Seg Neutrophils # Seg Neutrophils # Man Lymphocytes # (Manual) D-Dimer ABG pH POC ABG pO2 ABG pO2 ABG HCO3 ABG O2 Saturation ABG Base Excess ABG Oxyhemoglobin ABG Sodium ABG Chloride ABG Glucose Oxyhemoglobin Carboxyhemoglobin Sodium Potassium Chloride Carbon Dioxide BUN 27 H Creatinine 0.4 L Glucose 184 H POC Glucose 194 H Hemoglobin A1c Ferritin AST ALT Alkaline Phosphatase Lactate Dehydrogenase C-Reactive Protein Total Protein Albumin 3.1 L Arterial Blood Glucose Coronavirus (PCR) 04/19/21 04/19/21 04/19/21 11:38 16:25 22:04 WBC MCH MCHC RDW Lymph % (Auto) Lymph # (Auto) [place] # (Auto) Baso # (Auto) Seg Neutrophils % Seg Neuts % (Manual) Lymphocytes % (Manual) Seg Neutrophils # Seg Neutrophils # Man Lymphocytes # (Manual) D-Dimer ABG pH POC ABG pO2 ABG pO2 ABG HCO3 ABG O2 Saturation ABG Base Excess ABG Oxyhemoglobin ABG Sodium ABG Chloride ABG Glucose Oxyhemoglobin Carboxyhemoglobin Sodium Potassium Chloride Carbon Dioxide BUN Creatinine Glucose POC Glucose 224 H 297 H 251 H Hemoglobin A1c Ferritin AST ALT Alkaline Phosphatase Lactate Dehydrogenase C-Reactive Protein Total Protein Albumin Arterial Blood Glucose Coronavirus (PCR) 04/20/21 04/20/21 04/20/21 05:28 08:43 16:21 WBC MCH MCHC RDW Lymph % (Auto) Lymph # (Auto) [place] # (Auto) Baso # (Auto) Seg Neutrophils % Seg Neuts % (Manual) Lymphocytes % (Manual) Seg Neutrophils # Seg Neutrophils # Man Lymphocytes # (Manual) D-Dimer ABG pH POC ABG pO2 ABG pO2 ABG HCO3 ABG O2 Saturation ABG Base Excess ABG Oxyhemoglobin ABG Sodium ABG Chloride ABG Glucose Oxyhemoglobin Carboxyhemoglobin Sodium Potassium Chloride Carbon Dioxide BUN 27 H Creatinine Glucose 192 H POC Glucose 173 H 253 H Hemoglobin A1c Ferritin AST ALT Alkaline Phosphatase Lactate Dehydrogenase C-Reactive Protein Total Protein Albumin 3.0 L Arterial Blood Glucose Coronavirus (PCR) 04/21/21 04/21/21 04/21/21 07:58 12:05 16:08 WBC MCH MCHC RDW Lymph % (Auto) Lymph # (Auto) [place] # (Auto) Baso # (Auto) Seg Neutrophils % Seg Neuts % (Manual) Lymphocytes % (Manual) Seg Neutrophils # Seg Neutrophils # Man Lymphocytes # (Manual) D-Dimer ABG pH POC ABG pO2 ABG pO2 ABG HCO3 ABG O2 Saturation ABG Base Excess ABG Oxyhemoglobin ABG Sodium ABG Chloride ABG Glucose Oxyhemoglobin Carboxyhemoglobin Sodium Potassium Chloride Carbon Dioxide BUN Creatinine Glucose POC Glucose 140 H 252 H 214 H Hemoglobin A1c Ferritin AST ALT Alkaline Phosphatase Lactate Dehydrogenase C-Reactive Protein Total Protein Albumin Arterial Blood Glucose Coronavirus (PCR) 04/21/21 04/22/21 04/22/21 21:42 08:37 12:01 WBC MCH MCHC RDW Lymph % (Auto) Lymph # (Auto) [place] # (Auto) Baso # (Auto) Seg Neutrophils % Seg Neuts % (Manual) Lymphocytes % (Manual) Seg Neutrophils # Seg Neutrophils # Man Lymphocytes # (Manual) D-Dimer ABG pH 7.457 H POC ABG pO2 49.4 L ABG pO2 ABG HCO3 ABG O2 Saturation ABG Base Excess ABG Oxyhemoglobin 85.6 L ABG Sodium ABG Chloride ABG Glucose 121 H Oxyhemoglobin Carboxyhemoglobin 0.3 L Sodium Potassium Chloride Carbon Dioxide BUN Creatinine Glucose POC Glucose 162 H 227 H Hemoglobin A1c Ferritin AST ALT Alkaline Phosphatase Lactate Dehydrogenase C-Reactive Protein Total Protein Albumin Arterial Blood Glucose 121 H Coronavirus (PCR) 04/22/21 04/22/21 04/23/21 16:26 22:23 04:52 WBC MCH MCHC RDW 15.7 H Lymph % (Auto) Lymph # (Auto) [place] # (Auto) Baso # (Auto) Seg Neutrophils % Seg Neuts % (Manual) Lymphocytes % (Manual) Seg Neutrophils # Seg Neutrophils # Man Lymphocytes # (Manual) D-Dimer ABG pH POC ABG pO2 ABG pO2 ABG HCO3 ABG O2 Saturation ABG Base Excess ABG Oxyhemoglobin ABG Sodium ABG Chloride ABG Glucose Oxyhemoglobin Carboxyhemoglobin Sodium Potassium Chloride Carbon Dioxide BUN Creatinine Glucose POC Glucose 200 H 136 H Hemoglobin A1c Ferritin AST ALT Alkaline Phosphatase Lactate Dehydrogenase C-Reactive Protein Total Protein Albumin Arterial Blood Glucose Coronavirus (PCR) 04/23/21 04/23/21 04/23/21 04:52 12:06 17:41 WBC MCH MCHC RDW Lymph % (Auto) Lymph # (Auto) [place] # (Auto) Baso # (Auto) Seg Neutrophils % Seg Neuts % (Manual) Lymphocytes % (Manual) Seg Neutrophils # Seg Neutrophils # Man Lymphocytes # (Manual) D-Dimer ABG pH POC ABG pO2 ABG pO2 ABG HCO3 ABG O2 Saturation ABG Base Excess ABG Oxyhemoglobin ABG Sodium ABG Chloride ABG Glucose Oxyhemoglobin Carboxyhemoglobin Sodium 136 L Potassium Chloride 97.7 L Carbon Dioxide BUN 23 H Creatinine Glucose 101 H POC Glucose 202 H 169 H Hemoglobin A1c Ferritin AST 46 H ALT Alkaline Phosphatase Lactate Dehydrogenase C-Reactive Protein Total Protein Albumin 3.3 L Arterial Blood Glucose Coronavirus (PCR) 04/23/21 04/24/21 04/24/21 23:08 05:17 08:38 WBC MCH MCHC RDW Lymph % (Auto) Lymph # (Auto) [place] # (Auto) Baso # (Auto) Seg Neutrophils % Seg Neuts % (Manual) Lymphocytes % (Manual) Seg Neutrophils # Seg Neutrophils # Man Lymphocytes # (Manual) D-Dimer ABG pH POC ABG pO2 ABG pO2 ABG HCO3 ABG O2 Saturation ABG Base Excess ABG Oxyhemoglobin ABG Sodium ABG Chloride ABG Glucose Oxyhemoglobin Carboxyhemoglobin Sodium Potassium Chloride Carbon Dioxide BUN Creatinine Glucose POC Glucose 111 H 108 H 126 H Hemoglobin A1c Ferritin AST ALT Alkaline Phosphatase Lactate Dehydrogenase C-Reactive Protein Total Protein Albumin Arterial Blood Glucose Coronavirus (PCR) 04/24/21 04/24/21 04/24/21 11:54 17:57 21:23 WBC MCH MCHC RDW Lymph % (Auto) Lymph # (Auto) [place] # (Auto) Baso # (Auto) Seg Neutrophils % Seg Neuts % (Manual) Lymphocytes % (Manual) Seg Neutrophils # Seg Neutrophils # Man Lymphocytes # (Manual) D-Dimer ABG pH POC ABG pO2 ABG pO2 ABG HCO3 ABG O2 Saturation ABG Base Excess ABG Oxyhemoglobin ABG Sodium ABG Chloride ABG Glucose Oxyhemoglobin Carboxyhemoglobin Sodium Potassium Chloride Carbon Dioxide BUN Creatinine Glucose POC Glucose 147 H 177 H 138 H Hemoglobin A1c Ferritin AST ALT Alkaline Phosphatase Lactate Dehydrogenase C-Reactive Protein Total Protein Albumin Arterial Blood Glucose Coronavirus (PCR) 04/25/21 04/25/21 04/25/21 07:06 11:23 15:43 WBC MCH MCHC RDW Lymph % (Auto) Lymph # (Auto) [place] # (Auto) Baso # (Auto) Seg Neutrophils % Seg Neuts % (Manual) Lymphocytes % (Manual) Seg Neutrophils # Seg Neutrophils # Man Lymphocytes # (Manual) D-Dimer ABG pH POC ABG pO2 ABG pO2 ABG HCO3 ABG O2 Saturation ABG Base Excess ABG Oxyhemoglobin ABG Sodium ABG Chloride ABG Glucose Oxyhemoglobin Carboxyhemoglobin Sodium Potassium Chloride Carbon Dioxide BUN Creatinine Glucose POC Glucose 147 H 169 H 227 H Hemoglobin A1c Ferritin AST ALT Alkaline Phosphatase Lactate Dehydrogenase C-Reactive Protein Total Protein Albumin Arterial Blood Glucose Coronavirus (PCR) 04/25/21 04/26/21 04/26/21 21:22 02:45 05:15 WBC MCH MCHC RDW Lymph % (Auto) Lymph # (Auto) [place] # (Auto) Baso # (Auto) Seg Neutrophils % Seg Neuts % (Manual) Lymphocytes % (Manual) Seg Neutrophils # Seg Neutrophils # Man Lymphocytes # (Manual) D-Dimer ABG pH POC ABG pO2 70.7 L ABG pO2 ABG HCO3 ABG O2 Saturation ABG Base Excess ABG Oxyhemoglobin 93.0 L ABG Sodium 132.7 L ABG Chloride ABG Glucose 115 H Oxyhemoglobin Carboxyhemoglobin Sodium Potassium Chloride 95.8 L Carbon Dioxide 32 H BUN 20 H Creatinine Glucose 102 H POC Glucose 196 H Hemoglobin A1c Ferritin AST ALT Alkaline Phosphatase Lactate Dehydrogenase C-Reactive Protein Total Protein Albumin Arterial Blood Glucose 115 H Coronavirus (PCR) 04/26/21 04/26/21 04/26/21 11:49 16:09 21:07 WBC MCH MCHC RDW Lymph % (Auto) Lymph # (Auto) [place] # (Auto) Baso # (Auto) Seg Neutrophils % Seg Neuts % (Manual) Lymphocytes % (Manual) Seg Neutrophils # Seg Neutrophils # Man Lymphocytes # (Manual) D-Dimer ABG pH POC ABG pO2 ABG pO2 ABG HCO3 ABG O2 Saturation ABG Base Excess ABG Oxyhemoglobin ABG Sodium ABG Chloride ABG Glucose Oxyhemoglobin Carboxyhemoglobin Sodium Potassium Chloride Carbon Dioxide BUN Creatinine Glucose POC Glucose 114 H 188 H 136 H Hemoglobin A1c Ferritin AST ALT Alkaline Phosphatase Lactate Dehydrogenase C-Reactive Protein Total Protein Albumin Arterial Blood Glucose Coronavirus (PCR) 04/27/21 04/27/21 04/28/21 17:34 22:12 08:26 WBC MCH MCHC RDW Lymph % (Auto) Lymph # (Auto) [place] # (Auto) Baso # (Auto) Seg Neutrophils % Seg Neuts % (Manual) Lymphocytes % (Manual) Seg Neutrophils # Seg Neutrophils # Man Lymphocytes # (Manual) D-Dimer ABG pH POC ABG pO2 ABG pO2 ABG HCO3 ABG O2 Saturation ABG Base Excess ABG Oxyhemoglobin ABG Sodium ABG Chloride ABG Glucose Oxyhemoglobin Carboxyhemoglobin Sodium Potassium Chloride Carbon Dioxide BUN Creatinine Glucose POC Glucose 128 H 159 H 69 L Hemoglobin A1c Ferritin AST ALT Alkaline Phosphatase Lactate Dehydrogenase C-Reactive Protein Total Protein Albumin Arterial Blood Glucose Coronavirus (PCR) 04/28/21 04/28/21 04/29/21 12:22 21:11 06:05 WBC MCH MCHC RDW Lymph % (Auto) Lymph # (Auto) [place] # (Auto) Baso # (Auto) Seg Neutrophils % Seg Neuts % (Manual) Lymphocytes % (Manual) Seg Neutrophils # Seg Neutrophils # Man Lymphocytes # (Manual) D-Dimer ABG pH POC ABG pO2 ABG pO2 ABG HCO3 ABG O2 Saturation ABG Base Excess ABG Oxyhemoglobin ABG Sodium ABG Chloride ABG Glucose Oxyhemoglobin Carboxyhemoglobin Sodium 132 L Potassium Chloride 94.4 L Carbon Dioxide BUN Creatinine 0.2 L D Glucose 140 H POC Glucose 141 H 171 H Hemoglobin A1c Ferritin AST ALT Alkaline Phosphatase Lactate Dehydrogenase C-Reactive Protein Total Protein Albumin Arterial Blood Glucose Coronavirus (PCR) 04/29/21 04/29/21 04/29/21 06:05 07:24 11:36 WBC MCH MCHC 35 H RDW 15.9 H Lymph % (Auto) Lymph # (Auto) [place] # (Auto) Baso # (Auto) Seg Neutrophils % Seg Neuts % (Manual) Lymphocytes % (Manual) Seg Neutrophils # Seg Neutrophils # Man Lymphocytes # (Manual) D-Dimer ABG pH POC ABG pO2 ABG pO2 ABG HCO3 ABG O2 Saturation ABG Base Excess ABG Oxyhemoglobin ABG Sodium ABG Chloride ABG Glucose Oxyhemoglobin Carboxyhemoglobin Sodium Potassium Chloride Carbon Dioxide BUN Creatinine Glucose POC Glucose 141 H 220 H Hemoglobin A1c Ferritin AST ALT Alkaline Phosphatase Lactate Dehydrogenase C-Reactive Protein Total Protein Albumin Arterial Blood Glucose Coronavirus (PCR) 04/29/21 04/29/21 04/29/21 14:23 15:30 17:06 WBC MCH MCHC RDW Lymph % (Auto) Lymph # (Auto) [place] # (Auto) Baso # (Auto) Seg Neutrophils % Seg Neuts % (Manual) Lymphocytes % (Manual) Seg Neutrophils # Seg Neutrophils # Man Lymphocytes # (Manual) D-Dimer ABG pH POC ABG pO2 ABG pO2 52.6 L ABG HCO3 ABG O2 Saturation 86.4 L ABG Base Excess ABG Oxyhemoglobin ABG Sodium ABG Chloride ABG Glucose Oxyhemoglobin 84.6 L Carboxyhemoglobin Sodium Potassium Chloride Carbon Dioxide BUN Creatinine Glucose POC Glucose 173 H 158 H Hemoglobin A1c Ferritin AST ALT Alkaline Phosphatase Lactate Dehydrogenase C-Reactive Protein Total Protein Albumin Arterial Blood Glucose Coronavirus (PCR) 04/29/21 04/30/21 04/30/21 21:27 07:16 08:00 WBC MCH MCHC RDW 16.1 H Lymph % (Auto) Lymph # (Auto) [place] # (Auto) Baso # (Auto) Seg Neutrophils % Seg Neuts % (Manual) Lymphocytes % (Manual) Seg Neutrophils # Seg Neutrophils # Man Lymphocytes # (Manual) D-Dimer ABG pH POC ABG pO2 ABG pO2 ABG HCO3 ABG O2 Saturation ABG Base Excess ABG Oxyhemoglobin ABG Sodium ABG Chloride ABG Glucose Oxyhemoglobin Carboxyhemoglobin Sodium Potassium Chloride Carbon Dioxide BUN Creatinine Glucose POC Glucose 244 H 175 H Hemoglobin A1c Ferritin AST ALT Alkaline Phosphatase Lactate Dehydrogenase C-Reactive Protein Total Protein Albumin Arterial Blood Glucose Coronavirus (PCR) 04/30/21 04/30/21 04/30/21 08:00 08:00 11:03 WBC MCH MCHC RDW Lymph % (Auto) Lymph # (Auto) [place] # (Auto) Baso # (Auto) Seg Neutrophils % Seg Neuts % (Manual) Lymphocytes % (Manual) Seg Neutrophils # Seg Neutrophils # Man Lymphocytes # (Manual) D-Dimer 1796.87 H ABG pH POC ABG pO2 ABG pO2 ABG HCO3 ABG O2 Saturation ABG Base Excess ABG Oxyhemoglobin ABG Sodium ABG Chloride ABG Glucose Oxyhemoglobin Carboxyhemoglobin Sodium 135 L Potassium Chloride 96.3 L Carbon Dioxide BUN Creatinine 0.2 L Glucose 153 H POC Glucose 183 H Hemoglobin A1c Ferritin AST 41 H ALT 76 H Alkaline Phosphatase 160 H Lactate Dehydrogenase 522 H C-Reactive Protein Total Protein 6.1 L Albumin 3.1 L Arterial Blood Glucose Coronavirus (PCR) 04/30/21 04/30/21 05/01/21 17:04 22:17 05:39 WBC MCH MCHC RDW Lymph % (Auto) Lymph # (Auto) [place] # (Auto) Baso # (Auto) Seg Neutrophils % Seg Neuts % (Manual) Lymphocytes % (Manual) Seg Neutrophils # Seg Neutrophils # Man Lymphocytes # (Manual) D-Dimer ABG pH POC ABG pO2 ABG pO2 ABG HCO3 ABG O2 Saturation ABG Base Excess ABG Oxyhemoglobin ABG Sodium ABG Chloride ABG Glucose Oxyhemoglobin Carboxyhemoglobin Sodium 133 L Potassium Chloride 92.1 L Carbon Dioxide BUN 24 H Creatinine 0.4 L D Glucose 269 H POC Glucose 167 H 208 H Hemoglobin A1c Ferritin AST ALT 66 H Alkaline Phosphatase 142 H Lactate Dehydrogenase C-Reactive Protein Total Protein Albumin 3.2 L Arterial Blood Glucose Coronavirus (PCR) 05/01/21 05/01/21 05/01/21 05:39 05:39 07:45 WBC MCH MCHC RDW 16.0 H Lymph % (Auto) Lymph # (Auto) [place] # (Auto) Baso # (Auto) Seg Neutrophils % Seg Neuts % (Manual) Lymphocytes % (Manual) Seg Neutrophils # Seg Neutrophils # Man Lymphocytes # (Manual) D-Dimer 3984.95 H ABG pH POC ABG pO2 ABG pO2 ABG HCO3 ABG O2 Saturation ABG Base Excess ABG Oxyhemoglobin ABG Sodium ABG Chloride ABG Glucose Oxyhemoglobin Carboxyhemoglobin Sodium Potassium Chloride Carbon Dioxide BUN Creatinine Glucose POC Glucose 229 H Hemoglobin A1c Ferritin AST ALT Alkaline Phosphatase Lactate Dehydrogenase C-Reactive Protein Total Protein Albumin Arterial Blood Glucose Coronavirus (PCR) 05/01/21 05/01/21 05/01/21 12:10 15:46 21:06 WBC MCH MCHC RDW Lymph % (Auto) Lymph # (Auto) [place] # (Auto) Baso # (Auto) Seg Neutrophils % Seg Neuts % (Manual) Lymphocytes % (Manual) Seg Neutrophils # Seg Neutrophils # Man Lymphocytes # (Manual) D-Dimer ABG pH POC ABG pO2 ABG pO2 ABG HCO3 ABG O2 Saturation ABG Base Excess ABG Oxyhemoglobin ABG Sodium ABG Chloride ABG Glucose Oxyhemoglobin Carboxyhemoglobin Sodium Potassium Chloride Carbon Dioxide BUN Creatinine Glucose POC Glucose 296 H 279 H 232 H Hemoglobin A1c Ferritin AST ALT Alkaline Phosphatase Lactate Dehydrogenase C-Reactive Protein Total Protein Albumin Arterial Blood Glucose Coronavirus (PCR) 05/02/21 05/02/21 05/02/21 04:55 04:55 04:55 WBC MCH MCHC RDW 16.1 H Lymph % (Auto) Lymph # (Auto) [place] # (Auto) Baso # (Auto) Seg Neutrophils % Seg Neuts % (Manual) Lymphocytes % (Manual) Seg Neutrophils # Seg Neutrophils # Man Lymphocytes # (Manual) D-Dimer 1401.08 H ABG pH POC ABG pO2 ABG pO2 ABG HCO3 ABG O2 Saturation ABG Base Excess ABG Oxyhemoglobin ABG Sodium ABG Chloride ABG Glucose Oxyhemoglobin Carboxyhemoglobin Sodium 131 L Potassium Chloride 95.5 L Carbon Dioxide BUN 20 H Creatinine 0.3 L Glucose 288 H POC Glucose Hemoglobin A1c Ferritin AST ALT Alkaline Phosphatase Lactate Dehydrogenase C-Reactive Protein Total Protein 6.0 L Albumin 3.1 L Arterial Blood Glucose Coronavirus (PCR) 05/02/21 05/02/21 05/02/21 07:53 11:45 15:25 WBC MCH MCHC RDW Lymph % (Auto) Lymph # (Auto) [place] # (Auto) Baso # (Auto) Seg Neutrophils % Seg Neuts % (Manual) Lymphocytes % (Manual) Seg Neutrophils # Seg Neutrophils # Man Lymphocytes # (Manual) D-Dimer ABG pH POC ABG pO2 ABG pO2 ABG HCO3 ABG O2 Saturation ABG Base Excess ABG Oxyhemoglobin ABG Sodium ABG Chloride ABG Glucose Oxyhemoglobin Carboxyhemoglobin Sodium Potassium Chloride Carbon Dioxide BUN Creatinine Glucose POC Glucose 180 H 228 H 275 H Hemoglobin A1c Ferritin AST ALT Alkaline Phosphatase Lactate Dehydrogenase C-Reactive Protein Total Protein Albumin Arterial Blood Glucose Coronavirus (PCR) 05/02/21 05/03/21 05/03/21 22:56 04:30 04:49 WBC MCH MCHC RDW Lymph % (Auto) Lymph # (Auto) [place] # (Auto) Baso # (Auto) Seg Neutrophils % Seg Neuts % (Manual) Lymphocytes % (Manual) Seg Neutrophils # Seg Neutrophils # Man Lymphocytes # (Manual) D-Dimer ABG pH 7.229 L POC ABG pO2 65.3 L ABG pO2 ABG HCO3 ABG O2 Saturation ABG Base Excess ABG Oxyhemoglobin 87.8 L ABG Sodium 133.0 L ABG Chloride 97.0 L ABG Glucose 403 H Oxyhemoglobin Carboxyhemoglobin Sodium 130 L Potassium Chloride 94.9 L Carbon Dioxide BUN 20 H Creatinine 0.5 L D Glucose 359 H POC Glucose 293 H Hemoglobin A1c Ferritin AST 54 H ALT 75 H Alkaline Phosphatase 138 H Lactate Dehydrogenase C-Reactive Protein Total Protein Albumin 3.6 L Arterial Blood Glucose 403 H Coronavirus (PCR) 05/03/21 05/03/21 05/03/21 05:27 11:26 17:57 WBC MCH MCHC RDW Lymph % (Auto) Lymph # (Auto) [place] # (Auto) Baso # (Auto) Seg Neutrophils % Seg Neuts % (Manual) Lymphocytes % (Manual) Seg Neutrophils # Seg Neutrophils # Man Lymphocytes # (Manual) D-Dimer ABG pH POC ABG pO2 ABG pO2 ABG HCO3 ABG O2 Saturation ABG Base Excess ABG Oxyhemoglobin ABG Sodium ABG Chloride ABG Glucose Oxyhemoglobin Carboxyhemoglobin Sodium Potassium Chloride Carbon Dioxide BUN Creatinine Glucose POC Glucose 361 H 297 H 226 H Hemoglobin A1c Ferritin AST ALT Alkaline Phosphatase Lactate Dehydrogenase C-Reactive Protein Total Protein Albumin Arterial Blood Glucose Coronavirus (PCR) 05/03/21 05/04/21 05/04/21 23:12 05:12 07:30 WBC MCH MCHC RDW Lymph % (Auto) Lymph # (Auto) [place] # (Auto) Baso # (Auto) Seg Neutrophils % Seg Neuts % (Manual) Lymphocytes % (Manual) Seg Neutrophils # Seg Neutrophils # Man Lymphocytes # (Manual) D-Dimer ABG pH POC ABG pO2 ABG pO2 ABG HCO3 ABG O2 Saturation ABG Base Excess ABG Oxyhemoglobin ABG Sodium ABG Chloride ABG Glucose Oxyhemoglobin Carboxyhemoglobin Sodium Potassium Chloride Carbon Dioxide BUN Creatinine Glucose POC Glucose 282 H 285 H 254 H Hemoglobin A1c Ferritin AST ALT Alkaline Phosphatase Lactate Dehydrogenase C-Reactive Protein Total Protein Albumin Arterial Blood Glucose Coronavirus (PCR) 05/04/21 05/04/21 05/04/21 08:58 11:45 16:07 WBC MCH MCHC RDW Lymph % (Auto) Lymph # (Auto) [place] # (Auto) Baso # (Auto) Seg Neutrophils % Seg Neuts % (Manual) Lymphocytes % (Manual) Seg Neutrophils # Seg Neutrophils # Man Lymphocytes # (Manual) D-Dimer ABG pH POC ABG pO2 ABG pO2 ABG HCO3 ABG O2 Saturation ABG Base Excess ABG Oxyhemoglobin ABG Sodium ABG Chloride ABG Glucose Oxyhemoglobin Carboxyhemoglobin Sodium 134 L Potassium Chloride Carbon Dioxide BUN 20 H Creatinine 0.3 L Glucose 267 H POC Glucose 244 H 297 H Hemoglobin A1c Ferritin AST ALT Alkaline Phosphatase Lactate Dehydrogenase C-Reactive Protein Total Protein 6.0 L Albumin 3.2 L Arterial Blood Glucose Coronavirus (PCR) 05/04/21 05/05/21 05/05/21 23:32 05:00 05:13 WBC MCH MCHC RDW Lymph % (Auto) Lymph # (Auto) [place] # (Auto) Baso # (Auto) Seg Neutrophils % Seg Neuts % (Manual) Lymphocytes % (Manual) Seg Neutrophils # Seg Neutrophils # Man Lymphocytes # (Manual) D-Dimer ABG pH POC ABG pO2 ABG pO2 ABG HCO3 ABG O2 Saturation ABG Base Excess ABG Oxyhemoglobin ABG Sodium ABG Chloride ABG Glucose Oxyhemoglobin Carboxyhemoglobin Sodium 132 L Potassium Chloride 96.4 L Carbon Dioxide BUN 22 H Creatinine 0.3 L Glucose 228 H POC Glucose 154 H 260 H Hemoglobin A1c Ferritin AST ALT 67 H Alkaline Phosphatase Lactate Dehydrogenase C-Reactive Protein Total Protein 6.1 L Albumin 3.2 L Arterial Blood Glucose Coronavirus (PCR) 05/05/21 05/05/21 05/05/21 11:32 17:49 23:07 WBC MCH MCHC RDW Lymph % (Auto) Lymph # (Auto) [place] # (Auto) Baso # (Auto) Seg Neutrophils % Seg Neuts % (Manual) Lymphocytes % (Manual) Seg Neutrophils # Seg Neutrophils # Man Lymphocytes # (Manual) D-Dimer ABG pH POC ABG pO2 ABG pO2 ABG HCO3 ABG O2 Saturation ABG Base Excess ABG Oxyhemoglobin ABG Sodium ABG Chloride ABG Glucose Oxyhemoglobin Carboxyhemoglobin Sodium Potassium Chloride Carbon Dioxide BUN Creatinine Glucose POC Glucose 279 H 308 H 213 H Hemoglobin A1c Ferritin AST ALT Alkaline Phosphatase Lactate Dehydrogenase C-Reactive Protein Total Protein Albumin Arterial Blood Glucose Coronavirus (PCR) 05/06/21 05/06/21 05/06/21 05:00 05:00 05:20 WBC MCH MCHC RDW 16.8 H Lymph % (Auto) Lymph # (Auto) [place] # (Auto) Baso # (Auto) Seg Neutrophils % Seg Neuts % (Manual) 99.0 H Lymphocytes % (Manual) Seg Neutrophils # Seg Neutrophils # Man 10.9 H Lymphocytes # (Manual) 0.0 L D-Dimer ABG pH POC ABG pO2 ABG pO2 ABG HCO3 ABG O2 Saturation ABG Base Excess ABG Oxyhemoglobin ABG Sodium ABG Chloride ABG Glucose Oxyhemoglobin Carboxyhemoglobin Sodium 133 L Potassium Chloride Carbon Dioxide BUN 21 H Creatinine 0.3 L Glucose 259 H POC Glucose 308 H Hemoglobin A1c Ferritin AST ALT Alkaline Phosphatase Lactate Dehydrogenase C-Reactive Protein Total Protein Albumin 3.2 L Arterial Blood Glucose Coronavirus (PCR) 05/06/21 05/06/21 05/06/21 11:24 17:54 21:32 WBC MCH MCHC RDW Lymph % (Auto) Lymph # (Auto) [place] # (Auto) Baso # (Auto) Seg Neutrophils % Seg Neuts % (Manual) Lymphocytes % (Manual) Seg Neutrophils # Seg Neutrophils # Man Lymphocytes # (Manual) D-Dimer ABG pH POC ABG pO2 ABG pO2 ABG HCO3 ABG O2 Saturation ABG Base Excess ABG Oxyhemoglobin ABG Sodium ABG Chloride ABG Glucose Oxyhemoglobin Carboxyhemoglobin Sodium Potassium Chloride Carbon Dioxide BUN Creatinine Glucose POC Glucose 262 H 124 H 246 H Hemoglobin A1c Ferritin AST ALT Alkaline Phosphatase Lactate Dehydrogenase C-Reactive Protein Total Protein Albumin Arterial Blood Glucose Coronavirus (PCR) 05/06/21 05/07/21 05/07/21 23:10 04:54 04:54 WBC MCH MCHC RDW Lymph % (Auto) Lymph # (Auto) [place] # (Auto) Baso # (Auto) Seg Neutrophils % Seg Neuts % (Manual) Lymphocytes % (Manual) Seg Neutrophils # Seg Neutrophils # Man Lymphocytes # (Manual) D-Dimer 1609.28 H ABG pH POC ABG pO2 ABG pO2 ABG HCO3 ABG O2 Saturation ABG Base Excess ABG Oxyhemoglobin ABG Sodium ABG Chloride ABG Glucose Oxyhemoglobin Carboxyhemoglobin Sodium 136 L Potassium Chloride Carbon Dioxide BUN 23 H Creatinine 0.3 L Glucose 110 H POC Glucose 249 H Hemoglobin A1c Ferritin AST ALT Alkaline Phosphatase Lactate Dehydrogenase C-Reactive Protein Total Protein 6.2 L Albumin 3.0 L Arterial Blood Glucose Coronavirus (PCR) 05/07/21 05/07/21 05/07/21 04:54 04:54 11:41 WBC MCH MCHC RDW Lymph % (Auto) Lymph # (Auto) [place] # (Auto) Baso # (Auto) Seg Neutrophils % Seg Neuts % (Manual) Lymphocytes % (Manual) Seg Neutrophils # Seg Neutrophils # Man Lymphocytes # (Manual) D-Dimer ABG pH POC ABG pO2 ABG pO2 ABG HCO3 ABG O2 Saturation ABG Base Excess ABG Oxyhemoglobin ABG Sodium ABG Chloride ABG Glucose Oxyhemoglobin Carboxyhemoglobin Sodium Potassium Chloride Carbon Dioxide BUN Creatinine Glucose POC Glucose 118 H Hemoglobin A1c Ferritin 296.1 H AST ALT Alkaline Phosphatase Lactate Dehydrogenase 724 H C-Reactive Protein Total Protein Albumin Arterial Blood Glucose Coronavirus (PCR) 05/07/21 05/07/21 05/08/21 16:43 22:34 06:44 WBC MCH MCHC RDW Lymph % (Auto) Lymph # (Auto) [place] # (Auto) Baso # (Auto) Seg Neutrophils % Seg Neuts % (Manual) Lymphocytes % (Manual) Seg Neutrophils # Seg Neutrophils # Man Lymphocytes # (Manual) D-Dimer ABG pH POC ABG pO2 ABG pO2 ABG HCO3 ABG O2 Saturation ABG Base Excess ABG Oxyhemoglobin ABG Sodium ABG Chloride ABG Glucose Oxyhemoglobin Carboxyhemoglobin Sodium Potassium Chloride Carbon Dioxide BUN Creatinine Glucose POC Glucose 159 H 233 H 235 H Hemoglobin A1c Ferritin AST ALT Alkaline Phosphatase Lactate Dehydrogenase C-Reactive Protein Total Protein Albumin Arterial Blood Glucose Coronavirus (PCR) 05/08/21 05/08/21 05/08/21 07:49 11:56 17:13 WBC MCH MCHC RDW Lymph % (Auto) Lymph # (Auto) [place] # (Auto) Baso # (Auto) Seg Neutrophils % Seg Neuts % (Manual) Lymphocytes % (Manual) Seg Neutrophils # Seg Neutrophils # Man Lymphocytes # (Manual) D-Dimer ABG pH POC ABG pO2 ABG pO2 ABG HCO3 ABG O2 Saturation ABG Base Excess ABG Oxyhemoglobin ABG Sodium ABG Chloride ABG Glucose Oxyhemoglobin Carboxyhemoglobin Sodium Potassium Chloride Carbon Dioxide BUN Creatinine Glucose POC Glucose 219 H 184 H 182 H Hemoglobin A1c Ferritin AST ALT Alkaline Phosphatase Lactate Dehydrogenase C-Reactive Protein Total Protein Albumin Arterial Blood Glucose Coronavirus (PCR) 05/08/21 05/09/21 05/09/21 23:35 05:20 05:20 WBC MCH MCHC RDW Lymph % (Auto) Lymph # (Auto) [place] # (Auto) Baso # (Auto) Seg Neutrophils % Seg Neuts % (Manual) Lymphocytes % (Manual) Seg Neutrophils # Seg Neutrophils # Man Lymphocytes # (Manual) D-Dimer 1003.87 H ABG pH POC ABG pO2 ABG pO2 ABG HCO3 ABG O2 Saturation ABG Base Excess ABG Oxyhemoglobin ABG Sodium ABG Chloride ABG Glucose Oxyhemoglobin Carboxyhemoglobin Sodium Potassium Chloride Carbon Dioxide BUN Creatinine Glucose POC Glucose 198 H Hemoglobin A1c Ferritin 378.7 H AST ALT Alkaline Phosphatase Lactate Dehydrogenase C-Reactive Protein Total Protein Albumin Arterial Blood Glucose Coronavirus (PCR) 05/09/21 05/09/21 05/09/21 05:20 06:04 12:53 WBC MCH MCHC RDW Lymph % (Auto) Lymph # (Auto) [place] # (Auto) Baso # (Auto) Seg Neutrophils % Seg Neuts % (Manual) Lymphocytes % (Manual) Seg Neutrophils # Seg Neutrophils # Man Lymphocytes # (Manual) D-Dimer ABG pH POC ABG pO2 ABG pO2 ABG HCO3 ABG O2 Saturation ABG Base Excess ABG Oxyhemoglobin ABG Sodium ABG Chloride ABG Glucose Oxyhemoglobin Carboxyhemoglobin Sodium Potassium Chloride Carbon Dioxide BUN Creatinine Glucose POC Glucose 159 H 180 H Hemoglobin A1c Ferritin AST ALT Alkaline Phosphatase Lactate Dehydrogenase 558 H C-Reactive Protein 2.40 H Total Protein Albumin Arterial Blood Glucose Coronavirus (PCR) 05/09/21 05/09/21 05/10/21 16:43 21:27 10:18 WBC MCH MCHC RDW Lymph % (Auto) Lymph # (Auto) [place] # (Auto) Baso # (Auto) Seg Neutrophils % Seg Neuts % (Manual) Lymphocytes % (Manual) Seg Neutrophils # Seg Neutrophils # Man Lymphocytes # (Manual) D-Dimer ABG pH POC ABG pO2 ABG pO2 ABG HCO3 ABG O2 Saturation ABG Base Excess ABG Oxyhemoglobin ABG Sodium ABG Chloride ABG Glucose Oxyhemoglobin Carboxyhemoglobin Sodium Potassium Chloride Carbon Dioxide BUN Creatinine Glucose POC Glucose 212 H 285 H 261 H Hemoglobin A1c Ferritin AST ALT Alkaline Phosphatase Lactate Dehydrogenase C-Reactive Protein Total Protein Albumin Arterial Blood Glucose Coronavirus (PCR) 05/10/21 05/10/21 05/11/21 17:58 18:02 00:29 WBC MCH MCHC RDW Lymph % (Auto) Lymph # (Auto) [place] # (Auto) Baso # (Auto) Seg Neutrophils % Seg Neuts % (Manual) Lymphocytes % (Manual) Seg Neutrophils # Seg Neutrophils # Man Lymphocytes # (Manual) D-Dimer ABG pH POC ABG pO2 ABG pO2 ABG HCO3 ABG O2 Saturation ABG Base Excess ABG Oxyhemoglobin ABG Sodium ABG Chloride ABG Glucose Oxyhemoglobin Carboxyhemoglobin Sodium Potassium Chloride Carbon Dioxide BUN Creatinine Glucose POC Glucose 213 H 179 H 149 H Hemoglobin A1c Ferritin AST ALT Alkaline Phosphatase Lactate Dehydrogenase C-Reactive Protein Total Protein Albumin Arterial Blood Glucose Coronavirus (PCR) 05/11/21 05/11/21 05/11/21 05:22 11:32 17:00 WBC 14.9 H MCH MCHC RDW 18.9 H Lymph % (Auto) 4.9 L Lymph # (Auto) 0.7 L [place] # (Auto) Baso # (Auto) 0.2 H Seg Neutrophils % Seg Neuts % (Manual) Lymphocytes % (Manual) Seg Neutrophils # 13.3 H Seg Neutrophils # Man Lymphocytes # (Manual) D-Dimer ABG pH POC ABG pO2 ABG pO2 ABG HCO3 ABG O2 Saturation ABG Base Excess ABG Oxyhemoglobin ABG Sodium ABG Chloride ABG Glucose Oxyhemoglobin Carboxyhemoglobin Sodium Potassium Chloride Carbon Dioxide BUN Creatinine Glucose POC Glucose 162 H 179 H Hemoglobin A1c Ferritin AST ALT Alkaline Phosphatase Lactate Dehydrogenase C-Reactive Protein Total Protein Albumin Arterial Blood Glucose Coronavirus (PCR) 05/11/21 05/11/21 05/11/21 17:00 17:33 22:03 WBC MCH MCHC RDW Lymph % (Auto) Lymph # (Auto) [place] # (Auto) Baso # (Auto) Seg Neutrophils % Seg Neuts % (Manual) Lymphocytes % (Manual) Seg Neutrophils # Seg Neutrophils # Man Lymphocytes # (Manual) D-Dimer ABG pH POC ABG pO2 ABG pO2 ABG HCO3 ABG O2 Saturation ABG Base Excess ABG Oxyhemoglobin ABG Sodium ABG Chloride ABG Glucose Oxyhemoglobin Carboxyhemoglobin Sodium 135 L Potassium Chloride 97.3 L Carbon Dioxide BUN 21 H Creatinine 0.3 L Glucose 133 H POC Glucose 140 H 282 H Hemoglobin A1c Ferritin AST ALT 60 H Alkaline Phosphatase Lactate Dehydrogenase C-Reactive Protein Total Protein Albumin 3.1 L Arterial Blood Glucose Coronavirus (PCR) 05/12/21 05/12/21 05/12/21 04:05 04:05 04:05 WBC MCH MCHC RDW 18.4 H Lymph % (Auto) Lymph # (Auto) [place] # (Auto) Baso # (Auto) Seg Neutrophils % Seg Neuts % (Manual) 94.0 H Lymphocytes % (Manual) 4.0 L Seg Neutrophils # Seg Neutrophils # Man Lymphocytes # (Manual) 0.3 L D-Dimer ABG pH POC ABG pO2 ABG pO2 ABG HCO3 ABG O2 Saturation ABG Base Excess ABG Oxyhemoglobin ABG Sodium ABG Chloride ABG Glucose Oxyhemoglobin Carboxyhemoglobin Sodium 136 L Potassium Chloride Carbon Dioxide BUN 18 H Creatinine 0.2 L Glucose 142 H POC Glucose Hemoglobin A1c Ferritin 350.7 H AST ALT Alkaline Phosphatase Lactate Dehydrogenase 546 H C-Reactive Protein Total Protein 6.1 L Albumin 3.0 L Arterial Blood Glucose Coronavirus (PCR) 05/12/21 05/12/21 05/12/21 05:11 11:17 16:27 WBC MCH MCHC RDW Lymph % (Auto) Lymph # (Auto) [place] # (Auto) Baso # (Auto) Seg Neutrophils % Seg Neuts % (Manual) Lymphocytes % (Manual) Seg Neutrophils # Seg Neutrophils # Man Lymphocytes # (Manual) D-Dimer ABG pH POC ABG pO2 ABG pO2 ABG HCO3 ABG O2 Saturation ABG Base Excess ABG Oxyhemoglobin ABG Sodium ABG Chloride ABG Glucose Oxyhemoglobin Carboxyhemoglobin Sodium Potassium Chloride Carbon Dioxide BUN Creatinine Glucose POC Glucose 152 H 190 H 261 H Hemoglobin A1c Ferritin AST ALT Alkaline Phosphatase Lactate Dehydrogenase C-Reactive Protein Total Protein Albumin Arterial Blood Glucose Coronavirus (PCR) 05/12/21 05/13/21 05/13/21 20:55 11:08 21:41 WBC MCH MCHC RDW Lymph % (Auto) Lymph # (Auto) [place] # (Auto) Baso # (Auto) Seg Neutrophils % Seg Neuts % (Manual) Lymphocytes % (Manual) Seg Neutrophils # Seg Neutrophils # Man Lymphocytes # (Manual) D-Dimer ABG pH POC ABG pO2 ABG pO2 ABG HCO3 ABG O2 Saturation ABG Base Excess ABG Oxyhemoglobin ABG Sodium ABG Chloride ABG Glucose Oxyhemoglobin Carboxyhemoglobin Sodium Potassium Chloride Carbon Dioxide BUN Creatinine Glucose POC Glucose 231 H 106 H 174 H Hemoglobin A1c Ferritin AST ALT Alkaline Phosphatase Lactate Dehydrogenase C-Reactive Protein Total Protein Albumin Arterial Blood Glucose Coronavirus (PCR) 05/14/21 05/14/21 05/14/21 00:53 02:23 06:06 WBC MCH MCHC RDW Lymph % (Auto) Lymph # (Auto) [place] # (Auto) Baso # (Auto) Seg Neutrophils % Seg Neuts % (Manual) Lymphocytes % (Manual) Seg Neutrophils # Seg Neutrophils # Man Lymphocytes # (Manual) D-Dimer ABG pH POC ABG pO2 ABG pO2 130.3 H ABG HCO3 30.6 H ABG O2 Saturation ABG Base Excess 4.9 H ABG Oxyhemoglobin ABG Sodium ABG Chloride ABG Glucose Oxyhemoglobin Carboxyhemoglobin Sodium Potassium Chloride Carbon Dioxide BUN Creatinine Glucose POC Glucose 229 H 119 H Hemoglobin A1c Ferritin AST ALT Alkaline Phosphatase Lactate Dehydrogenase C-Reactive Protein Total Protein Albumin Arterial Blood Glucose Coronavirus (PCR) 05/14/21 05/14/21 05/14/21 07:13 07:13 07:13 WBC MCH MCHC RDW Lymph % (Auto) Lymph # (Auto) [place] # (Auto) Baso # (Auto) Seg Neutrophils % Seg Neuts % (Manual) Lymphocytes % (Manual) Seg Neutrophils # Seg Neutrophils # Man Lymphocytes # (Manual) D-Dimer 712.80 H ABG pH POC ABG pO2 ABG pO2 ABG HCO3 ABG O2 Saturation ABG Base Excess ABG Oxyhemoglobin ABG Sodium ABG Chloride ABG Glucose Oxyhemoglobin Carboxyhemoglobin Sodium 133 L Potassium Chloride 95.5 L Carbon Dioxide 32 H BUN Creatinine 0.2 L Glucose 137 H POC Glucose Hemoglobin A1c Ferritin 283.5 H AST ALT 63 H Alkaline Phosphatase Lactate Dehydrogenase 563 H C-Reactive Protein Total Protein 6.1 L Albumin 3.0 L Arterial Blood Glucose Coronavirus (PCR) 05/14/21 05/14/21 05/14/21 12:21 15:33 21:50 WBC MCH MCHC RDW Lymph % (Auto) Lymph # (Auto) [place] # (Auto) Baso # (Auto) Seg Neutrophils % Seg Neuts % (Manual) Lymphocytes % (Manual) Seg Neutrophils # Seg Neutrophils # Man Lymphocytes # (Manual) D-Dimer ABG pH POC ABG pO2 ABG pO2 ABG HCO3 ABG O2 Saturation ABG Base Excess ABG Oxyhemoglobin ABG Sodium ABG Chloride ABG Glucose Oxyhemoglobin Carboxyhemoglobin Sodium Potassium Chloride Carbon Dioxide BUN Creatinine Glucose POC Glucose 143 H 204 H 202 H Hemoglobin A1c Ferritin AST ALT Alkaline Phosphatase Lactate Dehydrogenase C-Reactive Protein Total Protein Albumin Arterial Blood Glucose Coronavirus (PCR) 05/15/21 05/15/21 05/15/21 05:05 11:12 16:39 WBC MCH MCHC RDW Lymph % (Auto) Lymph # (Auto) [place] # (Auto) Baso # (Auto) Seg Neutrophils % Seg Neuts % (Manual) Lymphocytes % (Manual) Seg Neutrophils # Seg Neutrophils # Man Lymphocytes # (Manual) D-Dimer ABG pH POC ABG pO2 ABG pO2 ABG HCO3 ABG O2 Saturation ABG Base Excess ABG Oxyhemoglobin ABG Sodium ABG Chloride ABG Glucose Oxyhemoglobin Carboxyhemoglobin Sodium Potassium Chloride Carbon Dioxide BUN Creatinine Glucose POC Glucose 125 H 201 H 241 H Hemoglobin A1c Ferritin AST ALT Alkaline Phosphatase Lactate Dehydrogenase C-Reactive Protein Total Protein Albumin Arterial Blood Glucose Coronavirus (PCR) 05/15/21 05/16/21 05/16/21 21:31 05:04 10:40 WBC MCH MCHC RDW Lymph % (Auto) Lymph # (Auto) [place] # (Auto) Baso # (Auto) Seg Neutrophils % Seg Neuts % (Manual) Lymphocytes % (Manual) Seg Neutrophils # Seg Neutrophils # Man Lymphocytes # (Manual) D-Dimer ABG pH POC ABG pO2 ABG pO2 ABG HCO3 ABG O2 Saturation ABG Base Excess ABG Oxyhemoglobin ABG Sodium ABG Chloride ABG Glucose Oxyhemoglobin Carboxyhemoglobin Sodium Potassium Chloride Carbon Dioxide BUN Creatinine Glucose POC Glucose 234 H 123 H 231 H Hemoglobin A1c Ferritin AST ALT Alkaline Phosphatase Lactate Dehydrogenase C-Reactive Protein Total Protein Albumin Arterial Blood Glucose Coronavirus (PCR) 05/16/21 05/16/21 05/17/21 18:23 21:29 06:20 WBC MCH MCHC RDW 18.8 H Lymph % (Auto) 10.2 L Lymph # (Auto) 0.8 L [place] # (Auto) Baso # (Auto) Seg Neutrophils % 85.8 H Seg Neuts % (Manual) Lymphocytes % (Manual) Seg Neutrophils # Seg Neutrophils # Man Lymphocytes # (Manual) D-Dimer ABG pH POC ABG pO2 ABG pO2 ABG HCO3 ABG O2 Saturation ABG Base Excess ABG Oxyhemoglobin ABG Sodium ABG Chloride ABG Glucose Oxyhemoglobin Carboxyhemoglobin Sodium Potassium Chloride Carbon Dioxide BUN Creatinine Glucose POC Glucose 266 H 234 H Hemoglobin A1c Ferritin AST ALT Alkaline Phosphatase Lactate Dehydrogenase C-Reactive Protein Total Protein Albumin Arterial Blood Glucose Coronavirus (PCR) 05/17/21 05/17/21 05/17/21 06:20 11:06 16:36 WBC MCH MCHC RDW Lymph % (Auto) Lymph # (Auto) [place] # (Auto) Baso # (Auto) Seg Neutrophils % Seg Neuts % (Manual) Lymphocytes % (Manual) Seg Neutrophils # Seg Neutrophils # Man Lymphocytes # (Manual) D-Dimer ABG pH POC ABG pO2 ABG pO2 ABG HCO3 ABG O2 Saturation ABG Base Excess ABG Oxyhemoglobin ABG Sodium ABG Chloride ABG Glucose Oxyhemoglobin Carboxyhemoglobin Sodium Potassium Chloride Carbon Dioxide 33 H BUN Creatinine 0.2 L Glucose 101 H POC Glucose 209 H 180 H Hemoglobin A1c Ferritin AST ALT Alkaline Phosphatase Lactate Dehydrogenase C-Reactive Protein Total Protein Albumin Arterial Blood Glucose Coronavirus (PCR) 05/17/21 05/18/21 05/18/21 21:06 12:00 15:06 WBC MCH MCHC RDW Lymph % (Auto) Lymph # (Auto) [place] # (Auto) Baso # (Auto) Seg Neutrophils % Seg Neuts % (Manual) Lymphocytes % (Manual) Seg Neutrophils # Seg Neutrophils # Man Lymphocytes # (Manual) D-Dimer 874.02 H ABG pH POC ABG pO2 ABG pO2 ABG HCO3 ABG O2 Saturation ABG Base Excess ABG Oxyhemoglobin ABG Sodium ABG Chloride ABG Glucose Oxyhemoglobin Carboxyhemoglobin Sodium Potassium Chloride Carbon Dioxide BUN Creatinine Glucose POC Glucose 256 H 139 H Hemoglobin A1c Ferritin AST ALT Alkaline Phosphatase Lactate Dehydrogenase C-Reactive Protein Total Protein Albumin Arterial Blood Glucose Coronavirus (PCR) 05/18/21 05/18/21 05/18/21 15:06 15:06 16:08 WBC MCH MCHC RDW Lymph % (Auto) Lymph # (Auto) [place] # (Auto) Baso # (Auto) Seg Neutrophils % Seg Neuts % (Manual) Lymphocytes % (Manual) Seg Neutrophils # Seg Neutrophils # Man Lymphocytes # (Manual) D-Dimer ABG pH POC ABG pO2 ABG pO2 ABG HCO3 ABG O2 Saturation ABG Base Excess ABG Oxyhemoglobin ABG Sodium ABG Chloride ABG Glucose Oxyhemoglobin Carboxyhemoglobin Sodium Potassium Chloride Carbon Dioxide BUN Creatinine Glucose POC Glucose 178 H Hemoglobin A1c Ferritin 289.6 H AST ALT Alkaline Phosphatase Lactate Dehydrogenase 605 H C-Reactive Protein Total Protein Albumin Arterial Blood Glucose Coronavirus (PCR) 05/18/21 05/19/21 05/19/21 21:22 11:57 15:26 WBC MCH MCHC RDW Lymph % (Auto) Lymph # (Auto) [place] # (Auto) Baso # (Auto) Seg Neutrophils % Seg Neuts % (Manual) Lymphocytes % (Manual) Seg Neutrophils # Seg Neutrophils # Man Lymphocytes # (Manual) D-Dimer ABG pH POC ABG pO2 ABG pO2 ABG HCO3 ABG O2 Saturation ABG Base Excess ABG Oxyhemoglobin ABG Sodium ABG Chloride ABG Glucose Oxyhemoglobin Carboxyhemoglobin Sodium Potassium Chloride Carbon Dioxide BUN Creatinine Glucose POC Glucose 241 H 201 H 209 H Hemoglobin A1c Ferritin AST ALT Alkaline Phosphatase Lactate Dehydrogenase C-Reactive Protein Total Protein Albumin Arterial Blood Glucose Coronavirus (PCR) 05/19/21 05/20/21 05/20/21 20:59 07:38 08:01 WBC MCH MCHC RDW 19.7 H Lymph % (Auto) 8.3 L Lymph # (Auto) 0.8 L [place] # (Auto) Baso # (Auto) Seg Neutrophils % 88.6 H Seg Neuts % (Manual) Lymphocytes % (Manual) Seg Neutrophils # 8.4 H Seg Neutrophils # Man Lymphocytes # (Manual) D-Dimer ABG pH POC ABG pO2 ABG pO2 ABG HCO3 ABG O2 Saturation ABG Base Excess ABG Oxyhemoglobin ABG Sodium ABG Chloride ABG Glucose Oxyhemoglobin Carboxyhemoglobin Sodium Potassium Chloride Carbon Dioxide BUN Creatinine Glucose POC Glucose 226 H 130 H Hemoglobin A1c Ferritin AST ALT Alkaline Phosphatase Lactate Dehydrogenase C-Reactive Protein Total Protein Albumin Arterial Blood Glucose Coronavirus (PCR) 05/20/21 05/20/21 05/20/21 08:01 11:00 16:43 WBC MCH MCHC RDW Lymph % (Auto) Lymph # (Auto) [place] # (Auto) Baso # (Auto) Seg Neutrophils % Seg Neuts % (Manual) Lymphocytes % (Manual) Seg Neutrophils # Seg Neutrophils # Man Lymphocytes # (Manual) D-Dimer ABG pH POC ABG pO2 ABG pO2 ABG HCO3 ABG O2 Saturation ABG Base Excess ABG Oxyhemoglobin ABG Sodium ABG Chloride ABG Glucose Oxyhemoglobin Carboxyhemoglobin Sodium Potassium Chloride Carbon Dioxide BUN 18 H Creatinine 0.2 L Glucose 132 H POC Glucose 237 H 240 H Hemoglobin A1c Ferritin AST ALT Alkaline Phosphatase Lactate Dehydrogenase C-Reactive Protein Total Protein Albumin Arterial Blood Glucose Coronavirus (PCR) 05/20/21 05/21/21 05/21/21 21:21 07:35 11:32 WBC MCH MCHC RDW Lymph % (Auto) Lymph # (Auto) [place] # (Auto) Baso # (Auto) Seg Neutrophils % Seg Neuts % (Manual) Lymphocytes % (Manual) Seg Neutrophils # Seg Neutrophils # Man Lymphocytes # (Manual) D-Dimer ABG pH POC ABG pO2 ABG pO2 ABG HCO3 ABG O2 Saturation ABG Base Excess ABG Oxyhemoglobin ABG Sodium ABG Chloride ABG Glucose Oxyhemoglobin Carboxyhemoglobin Sodium Potassium Chloride Carbon Dioxide BUN Creatinine Glucose POC Glucose 241 H 162 H 171 H Hemoglobin A1c Ferritin AST ALT Alkaline Phosphatase Lactate Dehydrogenase C-Reactive Protein Total Protein Albumin Arterial Blood Glucose Coronavirus (PCR) 05/21/21 05/21/21 05/22/21 16:22 20:43 05:14 WBC MCH MCHC RDW Lymph % (Auto) Lymph # (Auto) [place] # (Auto) Baso # (Auto) Seg Neutrophils % Seg Neuts % (Manual) Lymphocytes % (Manual) Seg Neutrophils # Seg Neutrophils # Man Lymphocytes # (Manual) D-Dimer ABG pH POC ABG pO2 ABG pO2 ABG HCO3 ABG O2 Saturation ABG Base Excess ABG Oxyhemoglobin ABG Sodium ABG Chloride ABG Glucose Oxyhemoglobin Carboxyhemoglobin Sodium Potassium Chloride Carbon Dioxide BUN Creatinine Glucose POC Glucose 244 H 299 H 140 H Hemoglobin A1c Ferritin AST ALT Alkaline Phosphatase Lactate Dehydrogenase C-Reactive Protein Total Protein Albumin Arterial Blood Glucose Coronavirus (PCR) 05/22/21 05/22/21 05/22/21 08:45 11:54 16:15 WBC MCH MCHC RDW Lymph % (Auto) Lymph # (Auto) [place] # (Auto) Baso # (Auto) Seg Neutrophils % Seg Neuts % (Manual) Lymphocytes % (Manual) Seg Neutrophils # Seg Neutrophils # Man Lymphocytes # (Manual) D-Dimer ABG pH POC ABG pO2 ABG pO2 ABG HCO3 ABG O2 Saturation ABG Base Excess ABG Oxyhemoglobin ABG Sodium ABG Chloride ABG Glucose Oxyhemoglobin Carboxyhemoglobin Sodium Potassium Chloride Carbon Dioxide BUN Creatinine Glucose POC Glucose 133 H 265 H 221 H Hemoglobin A1c Ferritin AST ALT Alkaline Phosphatase Lactate Dehydrogenase C-Reactive Protein Total Protein Albumin Arterial Blood Glucose Coronavirus (PCR) 05/22/21 05/23/21 05/23/21 21:43 08:20 09:50 WBC MCH MCHC RDW Lymph % (Auto) Lymph # (Auto) [place] # (Auto) Baso # (Auto) Seg Neutrophils % Seg Neuts % (Manual) Lymphocytes % (Manual) Seg Neutrophils # Seg Neutrophils # Man Lymphocytes # (Manual) D-Dimer 910.38 H ABG pH POC ABG pO2 ABG pO2 ABG HCO3 ABG O2 Saturation ABG Base Excess ABG Oxyhemoglobin ABG Sodium ABG Chloride ABG Glucose Oxyhemoglobin Carboxyhemoglobin Sodium Potassium Chloride Carbon Dioxide BUN Creatinine Glucose POC Glucose 262 H 140 H Hemoglobin A1c Ferritin AST ALT Alkaline Phosphatase Lactate Dehydrogenase C-Reactive Protein Total Protein Albumin Arterial Blood Glucose Coronavirus (PCR) 05/23/21 05/23/21 05/23/21 09:50 09:50 10:52 WBC MCH MCHC RDW Lymph % (Auto) Lymph # (Auto) [place] # (Auto) Baso # (Auto) Seg Neutrophils % Seg Neuts % (Manual) Lymphocytes % (Manual) Seg Neutrophils # Seg Neutrophils # Man Lymphocytes # (Manual) D-Dimer ABG pH POC ABG pO2 ABG pO2 ABG HCO3 ABG O2 Saturation ABG Base Excess ABG Oxyhemoglobin ABG Sodium ABG Chloride ABG Glucose Oxyhemoglobin Carboxyhemoglobin Sodium Potassium Chloride Carbon Dioxide BUN Creatinine Glucose POC Glucose 241 H Hemoglobin A1c Ferritin 244.9 H AST ALT Alkaline Phosphatase Lactate Dehydrogenase 584 H C-Reactive Protein Total Protein Albumin Arterial Blood Glucose Coronavirus (PCR) 05/23/21 05/23/21 05/24/21 17:24 21:52 07:44 WBC MCH MCHC RDW Lymph % (Auto) Lymph # (Auto) [place] # (Auto) Baso # (Auto) Seg Neutrophils % Seg Neuts % (Manual) Lymphocytes % (Manual) Seg Neutrophils # Seg Neutrophils # Man Lymphocytes # (Manual) D-Dimer ABG pH POC ABG pO2 ABG pO2 ABG HCO3 ABG O2 Saturation ABG Base Excess ABG Oxyhemoglobin ABG Sodium ABG Chloride ABG Glucose Oxyhemoglobin Carboxyhemoglobin Sodium Potassium Chloride Carbon Dioxide BUN Creatinine Glucose POC Glucose 197 H 289 H 161 H Hemoglobin A1c Ferritin AST ALT Alkaline Phosphatase Lactate Dehydrogenase C-Reactive Protein Total Protein Albumin Arterial Blood Glucose Coronavirus (PCR) 05/24/21 05/24/21 05/24/21 11:17 17:51 21:26 WBC MCH MCHC RDW Lymph % (Auto) Lymph # (Auto) [place] # (Auto) Baso # (Auto) Seg Neutrophils % Seg Neuts % (Manual) Lymphocytes % (Manual) Seg Neutrophils # Seg Neutrophils # Man Lymphocytes # (Manual) D-Dimer ABG pH POC ABG pO2 ABG pO2 ABG HCO3 ABG O2 Saturation ABG Base Excess ABG Oxyhemoglobin ABG Sodium ABG Chloride ABG Glucose Oxyhemoglobin Carboxyhemoglobin Sodium Potassium Chloride Carbon Dioxide BUN Creatinine Glucose POC Glucose 308 H 175 H 198 H Hemoglobin A1c Ferritin AST ALT Alkaline Phosphatase Lactate Dehydrogenase C-Reactive Protein Total Protein Albumin Arterial Blood Glucose Coronavirus (PCR) 05/25/21 05/25/21 05/25/21 08:14 11:13 17:13 WBC MCH MCHC RDW Lymph % (Auto) Lymph # (Auto) [place] # (Auto) Baso # (Auto) Seg Neutrophils % Seg Neuts % (Manual) Lymphocytes % (Manual) Seg Neutrophils # Seg Neutrophils # Man Lymphocytes # (Manual) D-Dimer ABG pH POC ABG pO2 ABG pO2 ABG HCO3 ABG O2 Saturation ABG Base Excess ABG Oxyhemoglobin ABG Sodium ABG Chloride ABG Glucose Oxyhemoglobin Carboxyhemoglobin Sodium Potassium Chloride Carbon Dioxide BUN Creatinine Glucose POC Glucose 203 H 339 H 235 H Hemoglobin A1c Ferritin AST ALT Alkaline Phosphatase Lactate Dehydrogenase C-Reactive Protein Total Protein Albumin Arterial Blood Glucose Coronavirus (PCR) 05/25/21 05/26/21 05/26/21 21:03 07:33 11:19 WBC MCH MCHC RDW Lymph % (Auto) Lymph # (Auto) [place] # (Auto) Baso # (Auto) Seg Neutrophils % Seg Neuts % (Manual) Lymphocytes % (Manual) Seg Neutrophils # Seg Neutrophils # Man Lymphocytes # (Manual) D-Dimer ABG pH POC ABG pO2 ABG pO2 ABG HCO3 ABG O2 Saturation ABG Base Excess ABG Oxyhemoglobin ABG Sodium ABG Chloride ABG Glucose Oxyhemoglobin Carboxyhemoglobin Sodium Potassium Chloride Carbon Dioxide BUN Creatinine Glucose POC Glucose 263 H 156 H 288 H Hemoglobin A1c Ferritin AST ALT Alkaline Phosphatase Lactate Dehydrogenase C-Reactive Protein Total Protein Albumin Arterial Blood Glucose Coronavirus (PCR) 05/26/21 05/26/21 05/27/21 16:26 20:55 07:38 WBC MCH MCHC RDW Lymph % (Auto) Lymph # (Auto) [place] # (Auto) Baso # (Auto) Seg Neutrophils % Seg Neuts % (Manual) Lymphocytes % (Manual) Seg Neutrophils # Seg Neutrophils # Man Lymphocytes # (Manual) D-Dimer ABG pH POC ABG pO2 ABG pO2 ABG HCO3 ABG O2 Saturation ABG Base Excess ABG Oxyhemoglobin ABG Sodium ABG Chloride ABG Glucose Oxyhemoglobin Carboxyhemoglobin Sodium Potassium Chloride Carbon Dioxide BUN Creatinine Glucose POC Glucose 286 H 293 H 115 H Hemoglobin A1c Ferritin AST ALT Alkaline Phosphatase Lactate Dehydrogenase C-Reactive Protein Total Protein Albumin Arterial Blood Glucose Coronavirus (PCR) 05/27/21 05/27/21 05/27/21 11:46 15:58 21:02 WBC MCH MCHC RDW Lymph % (Auto) Lymph # (Auto) [place] # (Auto) Baso # (Auto) Seg Neutrophils % Seg Neuts % (Manual) Lymphocytes % (Manual) Seg Neutrophils # Seg Neutrophils # Man Lymphocytes # (Manual) D-Dimer ABG pH POC ABG pO2 ABG pO2 ABG HCO3 ABG O2 Saturation ABG Base Excess ABG Oxyhemoglobin ABG Sodium ABG Chloride ABG Glucose Oxyhemoglobin Carboxyhemoglobin Sodium Potassium Chloride Carbon Dioxide BUN Creatinine Glucose POC Glucose 260 H 318 H 246 H Hemoglobin A1c Ferritin AST ALT Alkaline Phosphatase Lactate Dehydrogenase C-Reactive Protein Total Protein Albumin Arterial Blood Glucose Coronavirus (PCR) 05/28/21 05/28/21 05/28/21 07:34 11:31 16:36 WBC MCH MCHC RDW Lymph % (Auto) Lymph # (Auto) [place] # (Auto) Baso # (Auto) Seg Neutrophils % Seg Neuts % (Manual) Lymphocytes % (Manual) Seg Neutrophils # Seg Neutrophils # Man Lymphocytes # (Manual) D-Dimer ABG pH POC ABG pO2 ABG pO2 ABG HCO3 ABG O2 Saturation ABG Base Excess ABG Oxyhemoglobin ABG Sodium ABG Chloride ABG Glucose Oxyhemoglobin Carboxyhemoglobin Sodium Potassium Chloride Carbon Dioxide BUN Creatinine Glucose POC Glucose 185 H 297 H 183 H Hemoglobin A1c Ferritin AST ALT Alkaline Phosphatase Lactate Dehydrogenase C-Reactive Protein Total Protein Albumin Arterial Blood Glucose Coronavirus (PCR) 05/28/21 05/29/21 05/29/21 21:19 07:34 11:19 WBC MCH MCHC RDW Lymph % (Auto) Lymph # (Auto) [place] # (Auto) Baso # (Auto) Seg Neutrophils % Seg Neuts % (Manual) Lymphocytes % (Manual) Seg Neutrophils # Seg Neutrophils # Man Lymphocytes # (Manual) D-Dimer ABG pH POC ABG pO2 ABG pO2 ABG HCO3 ABG O2 Saturation ABG Base Excess ABG Oxyhemoglobin ABG Sodium ABG Chloride ABG Glucose Oxyhemoglobin Carboxyhemoglobin Sodium Potassium Chloride Carbon Dioxide BUN Creatinine Glucose POC Glucose 274 H 139 H 293 H Hemoglobin A1c Ferritin AST ALT Alkaline Phosphatase Lactate Dehydrogenase C-Reactive Protein Total Protein Albumin Arterial Blood Glucose Coronavirus (PCR) 05/29/21 05/29/21 05/30/21 16:36 22:44 05:55 WBC MCH MCHC RDW 21.3 H Lymph % (Auto) 8.0 L Lymph # (Auto) 0.6 L [place] # (Auto) Baso # (Auto) Seg Neutrophils % 88.6 H Seg Neuts % (Manual) Lymphocytes % (Manual) Seg Neutrophils # Seg Neutrophils # Man Lymphocytes # (Manual) D-Dimer ABG pH POC ABG pO2 ABG pO2 ABG HCO3 ABG O2 Saturation ABG Base Excess ABG Oxyhemoglobin ABG Sodium ABG Chloride ABG Glucose Oxyhemoglobin Carboxyhemoglobin Sodium Potassium Chloride Carbon Dioxide BUN Creatinine Glucose POC Glucose 299 H 160 H Hemoglobin A1c Ferritin AST ALT Alkaline Phosphatase Lactate Dehydrogenase C-Reactive Protein Total Protein Albumin Arterial Blood Glucose Coronavirus (PCR) 05/30/21 05/30/21 05/30/21 05:55 08:04 11:13 WBC MCH MCHC RDW Lymph % (Auto) Lymph # (Auto) [place] # (Auto) Baso # (Auto) Seg Neutrophils % Seg Neuts % (Manual) Lymphocytes % (Manual) Seg Neutrophils # Seg Neutrophils # Man Lymphocytes # (Manual) D-Dimer ABG pH POC ABG pO2 ABG pO2 ABG HCO3 ABG O2 Saturation ABG Base Excess ABG Oxyhemoglobin ABG Sodium ABG Chloride ABG Glucose Oxyhemoglobin Carboxyhemoglobin Sodium Potassium Chloride Carbon Dioxide BUN 19 H Creatinine 0.2 L Glucose 209 H POC Glucose 157 H 275 H Hemoglobin A1c Ferritin AST ALT Alkaline Phosphatase Lactate Dehydrogenase C-Reactive Protein Total Protein Albumin Arterial Blood Glucose Coronavirus (PCR) 05/30/21 05/30/21 05/31/21 17:08 22:12 07:36 WBC MCH MCHC RDW Lymph % (Auto) Lymph # (Auto) [place] # (Auto) Baso # (Auto) Seg Neutrophils % Seg Neuts % (Manual) Lymphocytes % (Manual) Seg Neutrophils # Seg Neutrophils # Man Lymphocytes # (Manual) D-Dimer ABG pH POC ABG pO2 ABG pO2 ABG HCO3 ABG O2 Saturation ABG Base Excess ABG Oxyhemoglobin ABG Sodium ABG Chloride ABG Glucose Oxyhemoglobin Carboxyhemoglobin Sodium Potassium Chloride Carbon Dioxide BUN Creatinine Glucose POC Glucose 154 H 275 H 138 H Hemoglobin A1c Ferritin AST ALT Alkaline Phosphatase Lactate Dehydrogenase C-Reactive Protein Total Protein Albumin Arterial Blood Glucose Coronavirus (PCR) 05/31/21 05/31/21 05/31/21 11:17 16:55 21:25 WBC MCH MCHC RDW Lymph % (Auto) Lymph # (Auto) [place] # (Auto) Baso # (Auto) Seg Neutrophils % Seg Neuts % (Manual) Lymphocytes % (Manual) Seg Neutrophils # Seg Neutrophils # Man Lymphocytes # (Manual) D-Dimer ABG pH POC ABG pO2 ABG pO2 ABG HCO3 ABG O2 Saturation ABG Base Excess ABG Oxyhemoglobin ABG Sodium ABG Chloride ABG Glucose Oxyhemoglobin Carboxyhemoglobin Sodium Potassium Chloride Carbon Dioxide BUN Creatinine Glucose POC Glucose 258 H 215 H 318 H Hemoglobin A1c Ferritin AST ALT Alkaline Phosphatase Lactate Dehydrogenase C-Reactive Protein Total Protein Albumin Arterial Blood Glucose Coronavirus (PCR) 06/01/21 06/01/21 06/01/21 07:23 11:38 16:52 WBC MCH MCHC RDW Lymph % (Auto) Lymph # (Auto) [place] # (Auto) Baso # (Auto) Seg Neutrophils % Seg Neuts % (Manual) Lymphocytes % (Manual) Seg Neutrophils # Seg Neutrophils # Man Lymphocytes # (Manual) D-Dimer ABG pH POC ABG pO2 ABG pO2 ABG HCO3 ABG O2 Saturation ABG Base Excess ABG Oxyhemoglobin ABG Sodium ABG Chloride ABG Glucose Oxyhemoglobin Carboxyhemoglobin Sodium Potassium Chloride Carbon Dioxide BUN Creatinine Glucose POC Glucose 157 H 259 H 150 H Hemoglobin A1c Ferritin AST ALT Alkaline Phosphatase Lactate Dehydrogenase C-Reactive Protein Total Protein Albumin Arterial Blood Glucose Coronavirus (PCR) 06/01/21 06/02/21 06/02/21 23:16 05:34 05:34 WBC MCH MCHC RDW 21.3 H Lymph % (Auto) 9.6 L Lymph # (Auto) 0.6 L [place] # (Auto) Baso # (Auto) Seg Neutrophils % 86.2 H Seg Neuts % (Manual) Lymphocytes % (Manual) Seg Neutrophils # Seg Neutrophils # Man Lymphocytes # (Manual) D-Dimer ABG pH POC ABG pO2 ABG pO2 ABG HCO3 ABG O2 Saturation ABG Base Excess ABG Oxyhemoglobin ABG Sodium ABG Chloride ABG Glucose Oxyhemoglobin Carboxyhemoglobin Sodium 136 L Potassium Chloride Carbon Dioxide BUN Creatinine 0.2 L Glucose 186 H POC Glucose 247 H Hemoglobin A1c Ferritin AST ALT 69 H Alkaline Phosphatase Lactate Dehydrogenase C-Reactive Protein Total Protein 6.1 L Albumin 3.2 L Arterial Blood Glucose Coronavirus (PCR) 06/02/21 06/02/21 06/02/21 11:25 18:23 21:32 WBC MCH MCHC RDW Lymph % (Auto) Lymph # (Auto) [place] # (Auto) Baso # (Auto) Seg Neutrophils % Seg Neuts % (Manual) Lymphocytes % (Manual) Seg Neutrophils # Seg Neutrophils # Man Lymphocytes # (Manual) D-Dimer ABG pH POC ABG pO2 ABG pO2 ABG HCO3 ABG O2 Saturation ABG Base Excess ABG Oxyhemoglobin ABG Sodium ABG Chloride ABG Glucose Oxyhemoglobin Carboxyhemoglobin Sodium Potassium Chloride Carbon Dioxide BUN Creatinine Glucose POC Glucose 157 H 299 H 246 H Hemoglobin A1c Ferritin AST ALT Alkaline Phosphatase Lactate Dehydrogenase C-Reactive Protein Total Protein Albumin Arterial Blood Glucose Coronavirus (PCR) 06/03/21 06/03/21 06/03/21 08:12 12:21 17:31 WBC MCH MCHC RDW Lymph % (Auto) Lymph # (Auto) [place] # (Auto) Baso # (Auto) Seg Neutrophils % Seg Neuts % (Manual) Lymphocytes % (Manual) Seg Neutrophils # Seg Neutrophils # Man Lymphocytes # (Manual) D-Dimer ABG pH POC ABG pO2 ABG pO2 ABG HCO3 ABG O2 Saturation ABG Base Excess ABG Oxyhemoglobin ABG Sodium ABG Chloride ABG Glucose Oxyhemoglobin Carboxyhemoglobin Sodium Potassium Chloride Carbon Dioxide BUN Creatinine Glucose POC Glucose 153 H 302 H 252 H Hemoglobin A1c Ferritin AST ALT Alkaline Phosphatase Lactate Dehydrogenase C-Reactive Protein Total Protein Albumin Arterial Blood Glucose Coronavirus (PCR) 06/03/21 06/04/21 06/04/21 22:08 11:12 16:01 WBC MCH MCHC RDW Lymph % (Auto) Lymph # (Auto) [place] # (Auto) Baso # (Auto) Seg Neutrophils % Seg Neuts % (Manual) Lymphocytes % (Manual) Seg Neutrophils # Seg Neutrophils # Man Lymphocytes # (Manual) D-Dimer ABG pH POC ABG pO2 ABG pO2 ABG HCO3 ABG O2 Saturation ABG Base Excess ABG Oxyhemoglobin ABG Sodium ABG Chloride ABG Glucose Oxyhemoglobin Carboxyhemoglobin Sodium Potassium Chloride Carbon Dioxide BUN Creatinine Glucose POC Glucose 224 H 259 H 238 H Hemoglobin A1c Ferritin AST ALT Alkaline Phosphatase Lactate Dehydrogenase C-Reactive Protein Total Protein Albumin Arterial Blood Glucose Coronavirus (PCR) 06/04/21 06/05/21 06/05/21 21:26 05:26 05:26 WBC MCH MCHC RDW Lymph % (Auto) Lymph # (Auto) [place] # (Auto) Baso # (Auto) Seg Neutrophils % Seg Neuts % (Manual) Lymphocytes % (Manual) Seg Neutrophils # Seg Neutrophils # Man Lymphocytes # (Manual) D-Dimer 488.49 H ABG pH POC ABG pO2 ABG pO2 ABG HCO3 ABG O2 Saturation ABG Base Excess ABG Oxyhemoglobin ABG Sodium ABG Chloride ABG Glucose Oxyhemoglobin Carboxyhemoglobin Sodium Potassium Chloride Carbon Dioxide BUN Creatinine 0.2 L Glucose 198 H POC Glucose 257 H Hemoglobin A1c Ferritin AST ALT Alkaline Phosphatase Lactate Dehydrogenase 475 H C-Reactive Protein Total Protein Albumin Arterial Blood Glucose Coronavirus (PCR) 06/05/21 06/05/21 06/05/21 07:20 08:30 11:00 WBC MCH MCHC RDW Lymph % (Auto) Lymph # (Auto) [place] # (Auto) Baso # (Auto) Seg Neutrophils % Seg Neuts % (Manual) Lymphocytes % (Manual) Seg Neutrophils # Seg Neutrophils # Man Lymphocytes # (Manual) D-Dimer ABG pH POC ABG pO2 ABG pO2 ABG HCO3 ABG O2 Saturation ABG Base Excess ABG Oxyhemoglobin ABG Sodium ABG Chloride ABG Glucose Oxyhemoglobin Carboxyhemoglobin Sodium Potassium Chloride Carbon Dioxide BUN Creatinine Glucose POC Glucose 146 H 246 H Hemoglobin A1c Ferritin AST ALT Alkaline Phosphatase Lactate Dehydrogenase C-Reactive Protein Total Protein Albumin Arterial Blood Glucose Coronavirus (PCR) Positive A 06/05/21 06/05/21 06/06/21 16:50 22:30 07:57 WBC MCH MCHC RDW Lymph % (Auto) Lymph # (Auto) [place] # (Auto) Baso # (Auto) Seg Neutrophils % Seg Neuts % (Manual) Lymphocytes % (Manual) Seg Neutrophils # Seg Neutrophils # Man Lymphocytes # (Manual) D-Dimer ABG pH POC ABG pO2 ABG pO2 ABG HCO3 ABG O2 Saturation ABG Base Excess ABG Oxyhemoglobin ABG Sodium ABG Chloride ABG Glucose Oxyhemoglobin Carboxyhemoglobin Sodium Potassium Chloride Carbon Dioxide BUN Creatinine Glucose POC Glucose 240 H 174 H 120 H Hemoglobin A1c Ferritin AST ALT Alkaline Phosphatase Lactate Dehydrogenase C-Reactive Protein Total Protein Albumin Arterial Blood Glucose Coronavirus (PCR) 06/06/21 06/06/21 06/06/21 11:14 16:50 21:11 WBC MCH MCHC RDW Lymph % (Auto) Lymph # (Auto) [place] # (Auto) Baso # (Auto) Seg Neutrophils % Seg Neuts % (Manual) Lymphocytes % (Manual) Seg Neutrophils # Seg Neutrophils # Man Lymphocytes # (Manual) D-Dimer ABG pH POC ABG pO2 ABG pO2 ABG HCO3 ABG O2 Saturation ABG Base Excess ABG Oxyhemoglobin ABG Sodium ABG Chloride ABG Glucose Oxyhemoglobin Carboxyhemoglobin Sodium Potassium Chloride Carbon Dioxide BUN Creatinine Glucose POC Glucose 267 H 218 H 124 H Hemoglobin A1c Ferritin AST ALT Alkaline Phosphatase Lactate Dehydrogenase C-Reactive Protein Total Protein Albumin Arterial Blood Glucose Coronavirus (PCR) 06/07/21 06/07/21 06/08/21 11:58 15:59 07:59 WBC MCH MCHC RDW Lymph % (Auto) Lymph # (Auto) [place] # (Auto) Baso # (Auto) Seg Neutrophils % Seg Neuts % (Manual) Lymphocytes % (Manual) Seg Neutrophils # Seg Neutrophils # Man Lymphocytes # (Manual) D-Dimer ABG pH POC ABG pO2 ABG pO2 ABG HCO3 ABG O2 Saturation ABG Base Excess ABG Oxyhemoglobin ABG Sodium ABG Chloride ABG Glucose Oxyhemoglobin Carboxyhemoglobin Sodium Potassium Chloride Carbon Dioxide BUN Creatinine Glucose POC Glucose 219 H 208 H 192 H Hemoglobin A1c Ferritin AST ALT Alkaline Phosphatase Lactate Dehydrogenase C-Reactive Protein Total Protein Albumin Arterial Blood Glucose Coronavirus (PCR) 06/08/21 06/08/21 06/09/21 11:26 23:28 07:33 WBC MCH MCHC RDW Lymph % (Auto) Lymph # (Auto) [place] # (Auto) Baso # (Auto) Seg Neutrophils % Seg Neuts % (Manual) Lymphocytes % (Manual) Seg Neutrophils # Seg Neutrophils # Man Lymphocytes # (Manual) D-Dimer ABG pH POC ABG pO2 ABG pO2 ABG HCO3 ABG O2 Saturation ABG Base Excess ABG Oxyhemoglobin ABG Sodium ABG Chloride ABG Glucose Oxyhemoglobin Carboxyhemoglobin Sodium Potassium Chloride Carbon Dioxide BUN Creatinine Glucose POC Glucose 307 H 138 H 145 H Hemoglobin A1c Ferritin AST ALT Alkaline Phosphatase Lactate Dehydrogenase C-Reactive Protein Total Protein Albumin Arterial Blood Glucose Coronavirus (PCR) 06/09/21 06/09/21 06/09/21 11:01 15:47 21:43 WBC MCH MCHC RDW Lymph % (Auto) Lymph # (Auto) [place] # (Auto) Baso # (Auto) Seg Neutrophils % Seg Neuts % (Manual) Lymphocytes % (Manual) Seg Neutrophils # Seg Neutrophils # Man Lymphocytes # (Manual) D-Dimer ABG pH POC ABG pO2 ABG pO2 ABG HCO3 ABG O2 Saturation ABG Base Excess ABG Oxyhemoglobin ABG Sodium ABG Chloride ABG Glucose Oxyhemoglobin Carboxyhemoglobin Sodium Potassium Chloride Carbon Dioxide BUN Creatinine Glucose POC Glucose 266 H 305 H 223 H Hemoglobin A1c Ferritin AST ALT Alkaline Phosphatase Lactate Dehydrogenase C-Reactive Protein Total Protein Albumin Arterial Blood Glucose Coronavirus (PCR) 06/10/21 06/10/21 06/10/21 08:27 12:10 17:45 WBC MCH MCHC RDW Lymph % (Auto) Lymph # (Auto) [place] # (Auto) Baso # (Auto) Seg Neutrophils % Seg Neuts % (Manual) Lymphocytes % (Manual) Seg Neutrophils # Seg Neutrophils # Man Lymphocytes # (Manual) D-Dimer ABG pH POC ABG pO2 ABG pO2 ABG HCO3 ABG O2 Saturation ABG Base Excess ABG Oxyhemoglobin ABG Sodium ABG Chloride ABG Glucose Oxyhemoglobin Carboxyhemoglobin Sodium Potassium Chloride Carbon Dioxide BUN Creatinine Glucose POC Glucose 174 H 306 H 210 H Hemoglobin A1c Ferritin AST ALT Alkaline Phosphatase Lactate Dehydrogenase C-Reactive Protein Total Protein Albumin Arterial Blood Glucose Coronavirus (PCR) 06/10/21 06/11/21 06/11/21 21:45 09:38 09:38 WBC MCH MCHC RDW 20.9 H Lymph % (Auto) Lymph # (Auto) [place] # (Auto) Baso # (Auto) Seg Neutrophils % Seg Neuts % (Manual) Lymphocytes % (Manual) Seg Neutrophils # Seg Neutrophils # Man Lymphocytes # (Manual) D-Dimer ABG pH POC ABG pO2 ABG pO2 ABG HCO3 ABG O2 Saturation ABG Base Excess ABG Oxyhemoglobin ABG Sodium ABG Chloride ABG Glucose Oxyhemoglobin Carboxyhemoglobin Sodium 135 L Potassium Chloride 90.8 L Carbon Dioxide 36 H BUN 29 H Creatinine 0.2 L Glucose 258 H POC Glucose 262 H Hemoglobin A1c Ferritin AST ALT Alkaline Phosphatase Lactate Dehydrogenase C-Reactive Protein Total Protein Albumin Arterial Blood Glucose Coronavirus (PCR) 06/11/21 06/11/21 06/11/21 11:20 15:49 22:57 WBC MCH MCHC RDW Lymph % (Auto) Lymph # (Auto) [place] # (Auto) Baso # (Auto) Seg Neutrophils % Seg Neuts % (Manual) Lymphocytes % (Manual) Seg Neutrophils # Seg Neutrophils # Man Lymphocytes # (Manual) D-Dimer ABG pH POC ABG pO2 ABG pO2 ABG HCO3 ABG O2 Saturation ABG Base Excess ABG Oxyhemoglobin ABG Sodium ABG Chloride ABG Glucose Oxyhemoglobin Carboxyhemoglobin Sodium Potassium Chloride Carbon Dioxide BUN Creatinine Glucose POC Glucose 269 H 206 H 211 H Hemoglobin A1c Ferritin AST ALT Alkaline Phosphatase Lactate Dehydrogenase C-Reactive Protein Total Protein Albumin Arterial Blood Glucose Coronavirus (PCR) 06/12/21 06/12/21 06/12/21 08:07 11:24 18:08 WBC MCH MCHC RDW Lymph % (Auto) Lymph # (Auto) [place] # (Auto) Baso # (Auto) Seg Neutrophils % Seg Neuts % (Manual) Lymphocytes % (Manual) Seg Neutrophils # Seg Neutrophils # Man Lymphocytes # (Manual) D-Dimer ABG pH POC ABG pO2 ABG pO2 ABG HCO3 ABG O2 Saturation ABG Base Excess ABG Oxyhemoglobin ABG Sodium ABG Chloride ABG Glucose Oxyhemoglobin Carboxyhemoglobin Sodium Potassium Chloride Carbon Dioxide BUN Creatinine Glucose POC Glucose 149 H 270 H 166 H Hemoglobin A1c Ferritin AST ALT Alkaline Phosphatase Lactate Dehydrogenase C-Reactive Protein Total Protein Albumin Arterial Blood Glucose Coronavirus (PCR) 06/12/21 06/13/21 06/13/21 20:22 07:50 11:18 WBC MCH MCHC RDW Lymph % (Auto) Lymph # (Auto) [place] # (Auto) Baso # (Auto) Seg Neutrophils % Seg Neuts % (Manual) Lymphocytes % (Manual) Seg Neutrophils # Seg Neutrophils # Man Lymphocytes # (Manual) D-Dimer ABG pH POC ABG pO2 ABG pO2 ABG HCO3 ABG O2 Saturation ABG Base Excess ABG Oxyhemoglobin ABG Sodium ABG Chloride ABG Glucose Oxyhemoglobin Carboxyhemoglobin Sodium Potassium Chloride Carbon Dioxide BUN Creatinine Glucose POC Glucose 155 H 163 H 293 H Hemoglobin A1c Ferritin AST ALT Alkaline Phosphatase Lactate Dehydrogenase C-Reactive Protein Total Protein Albumin Arterial Blood Glucose Coronavirus (PCR) 06/13/21 06/13/21 06/14/21 16:41 21:00 07:41 WBC MCH MCHC RDW Lymph % (Auto) Lymph # (Auto) [place] # (Auto) Baso # (Auto) Seg Neutrophils % Seg Neuts % (Manual) Lymphocytes % (Manual) Seg Neutrophils # Seg Neutrophils # Man Lymphocytes # (Manual) D-Dimer ABG pH POC ABG pO2 ABG pO2 ABG HCO3 ABG O2 Saturation ABG Base Excess ABG Oxyhemoglobin ABG Sodium ABG Chloride ABG Glucose Oxyhemoglobin Carboxyhemoglobin Sodium Potassium Chloride Carbon Dioxide BUN Creatinine Glucose POC Glucose 232 H 183 H 52 L Hemoglobin A1c Ferritin AST ALT Alkaline Phosphatase Lactate Dehydrogenase C-Reactive Protein Total Protein Albumin Arterial Blood Glucose Coronavirus (PCR) 06/14/21 06/14/21 06/14/21 11:44 17:44 21:44 WBC MCH MCHC RDW Lymph % (Auto) Lymph # (Auto) [place] # (Auto) Baso # (Auto) Seg Neutrophils % Seg Neuts % (Manual) Lymphocytes % (Manual) Seg Neutrophils # Seg Neutrophils # Man Lymphocytes # (Manual) D-Dimer ABG pH POC ABG pO2 ABG pO2 ABG HCO3 ABG O2 Saturation ABG Base Excess ABG Oxyhemoglobin ABG Sodium ABG Chloride ABG Glucose Oxyhemoglobin Carboxyhemoglobin Sodium Potassium Chloride Carbon Dioxide BUN Creatinine Glucose POC Glucose 205 H 293 H 288 H Hemoglobin A1c Ferritin AST ALT Alkaline Phosphatase Lactate Dehydrogenase C-Reactive Protein Total Protein Albumin Arterial Blood Glucose Coronavirus (PCR) 06/15/21 06/15/21 06/15/21 08:00 08:00 11:40 WBC MCH 33 H MCHC 35 H RDW 20.3 H Lymph % (Auto) Lymph # (Auto) [place] # (Auto) Baso # (Auto) Seg Neutrophils % Seg Neuts % (Manual) Lymphocytes % (Manual) Seg Neutrophils # Seg Neutrophils # Man Lymphocytes # (Manual) D-Dimer ABG pH POC ABG pO2 ABG pO2 ABG HCO3 ABG O2 Saturation ABG Base Excess ABG Oxyhemoglobin ABG Sodium ABG Chloride ABG Glucose Oxyhemoglobin Carboxyhemoglobin Sodium Potassium 3.2 L Chloride 95.3 L Carbon Dioxide 32 H BUN 23 H Creatinine 0.2 L Glucose 103 H POC Glucose 204 H Hemoglobin A1c Ferritin AST ALT Alkaline Phosphatase Lactate Dehydrogenase C-Reactive Protein Total Protein Albumin Arterial Blood Glucose Coronavirus (PCR) 06/15/21 06/15/21 06/16/21 16:17 22:00 11:43 WBC MCH MCHC RDW Lymph % (Auto) Lymph # (Auto) [place] # (Auto) Baso # (Auto) Seg Neutrophils % Seg Neuts % (Manual) Lymphocytes % (Manual) Seg Neutrophils # Seg Neutrophils # Man Lymphocytes # (Manual) D-Dimer ABG pH POC ABG pO2 ABG pO2 ABG HCO3 ABG O2 Saturation ABG Base Excess ABG Oxyhemoglobin ABG Sodium ABG Chloride ABG Glucose Oxyhemoglobin Carboxyhemoglobin Sodium Potassium Chloride Carbon Dioxide BUN Creatinine Glucose POC Glucose 295 H 233 H 201 H Hemoglobin A1c Ferritin AST ALT Alkaline Phosphatase Lactate Dehydrogenase C-Reactive Protein Total Protein Albumin Arterial Blood Glucose Coronavirus (PCR) 06/16/21 06/16/21 06/17/21 17:21 21:27 07:12 WBC MCH MCHC RDW Lymph % (Auto) Lymph # (Auto) [place] # (Auto) Baso # (Auto) Seg Neutrophils % Seg Neuts % (Manual) Lymphocytes % (Manual) Seg Neutrophils # Seg Neutrophils # Man Lymphocytes # (Manual) D-Dimer ABG pH POC ABG pO2 ABG pO2 ABG HCO3 ABG O2 Saturation ABG Base Excess ABG Oxyhemoglobin ABG Sodium ABG Chloride ABG Glucose Oxyhemoglobin Carboxyhemoglobin Sodium Potassium Chloride Carbon Dioxide BUN Creatinine Glucose POC Glucose 299 H 290 H 67 L Hemoglobin A1c Ferritin AST ALT Alkaline Phosphatase Lactate Dehydrogenase C-Reactive Protein Total Protein Albumin Arterial Blood Glucose Coronavirus (PCR) 06/17/21 06/17/21 06/17/21 11:53 17:02 22:25 WBC MCH MCHC RDW Lymph % (Auto) Lymph # (Auto) [place] # (Auto) Baso # (Auto) Seg Neutrophils % Seg Neuts % (Manual) Lymphocytes % (Manual) Seg Neutrophils # Seg Neutrophils # Man Lymphocytes # (Manual) D-Dimer ABG pH POC ABG pO2 ABG pO2 ABG HCO3 ABG O2 Saturation ABG Base Excess ABG Oxyhemoglobin ABG Sodium ABG Chloride ABG Glucose Oxyhemoglobin Carboxyhemoglobin Sodium Potassium Chloride Carbon Dioxide BUN Creatinine Glucose POC Glucose 199 H 362 H 235 H Hemoglobin A1c Ferritin AST ALT Alkaline Phosphatase Lactate Dehydrogenase C-Reactive Protein Total Protein Albumin Arterial Blood Glucose Coronavirus (PCR) 06/18/21 06/18/21 06/18/21 08:00 11:48 16:40 WBC MCH MCHC RDW Lymph % (Auto) Lymph # (Auto) [place] # (Auto) Baso # (Auto) Seg Neutrophils % Seg Neuts % (Manual) Lymphocytes % (Manual) Seg Neutrophils # Seg Neutrophils # Man Lymphocytes # (Manual) D-Dimer ABG pH POC ABG pO2 ABG pO2 ABG HCO3 ABG O2 Saturation ABG Base Excess ABG Oxyhemoglobin ABG Sodium ABG Chloride ABG Glucose Oxyhemoglobin Carboxyhemoglobin Sodium Potassium Chloride Carbon Dioxide BUN Creatinine Glucose POC Glucose 62 L 211 H 305 H Hemoglobin A1c Ferritin AST ALT Alkaline Phosphatase Lactate Dehydrogenase C-Reactive Protein Total Protein Albumin Arterial Blood Glucose Coronavirus (PCR) 06/18/21 06/19/21 06/19/21 21:26 07:27 11:32 WBC MCH MCHC RDW Lymph % (Auto) Lymph # (Auto) [place] # (Auto) Baso # (Auto) Seg Neutrophils % Seg Neuts % (Manual) Lymphocytes % (Manual) Seg Neutrophils # Seg Neutrophils # Man Lymphocytes # (Manual) D-Dimer ABG pH POC ABG pO2 ABG pO2 ABG HCO3 ABG O2 Saturation ABG Base Excess ABG Oxyhemoglobin ABG Sodium ABG Chloride ABG Glucose Oxyhemoglobin Carboxyhemoglobin Sodium Potassium Chloride Carbon Dioxide BUN Creatinine Glucose POC Glucose 149 H 60 L 208 H Hemoglobin A1c Ferritin AST ALT Alkaline Phosphatase Lactate Dehydrogenase C-Reactive Protein Total Protein Albumin Arterial Blood Glucose Coronavirus (PCR) 06/19/21 06/19/21 06/20/21 16:06 22:28 07:48 WBC MCH MCHC RDW Lymph % (Auto) Lymph # (Auto) [place] # (Auto) Baso # (Auto) Seg Neutrophils % Seg Neuts % (Manual) Lymphocytes % (Manual) Seg Neutrophils # Seg Neutrophils # Man Lymphocytes # (Manual) D-Dimer ABG pH POC ABG pO2 ABG pO2 ABG HCO3 ABG O2 Saturation ABG Base Excess ABG Oxyhemoglobin ABG Sodium ABG Chloride ABG Glucose Oxyhemoglobin Carboxyhemoglobin Sodium Potassium Chloride Carbon Dioxide BUN Creatinine Glucose POC Glucose 266 H 166 H 58 L Hemoglobin A1c Ferritin AST ALT Alkaline Phosphatase Lactate Dehydrogenase C-Reactive Protein Total Protein Albumin Arterial Blood Glucose Coronavirus (PCR) 06/20/21 06/20/21 06/20/21 09:09 11:04 16:01 WBC MCH MCHC RDW Lymph % (Auto) Lymph # (Auto) [place] # (Auto) Baso # (Auto) Seg Neutrophils % Seg Neuts % (Manual) Lymphocytes % (Manual) Seg Neutrophils # Seg Neutrophils # Man Lymphocytes # (Manual) D-Dimer ABG pH POC ABG pO2 ABG pO2 ABG HCO3 ABG O2 Saturation ABG Base Excess ABG Oxyhemoglobin ABG Sodium ABG Chloride ABG Glucose Oxyhemoglobin Carboxyhemoglobin Sodium Potassium Chloride Carbon Dioxide BUN Creatinine Glucose POC Glucose 146 H 225 H 330 H Hemoglobin A1c Ferritin AST ALT Alkaline Phosphatase Lactate Dehydrogenase C-Reactive Protein Total Protein Albumin Arterial Blood Glucose Coronavirus (PCR) 06/20/21 06/21/21 06/21/21 20:46 06:45 06:45 WBC MCH MCHC RDW 20.0 H Lymph % (Auto) Lymph # (Auto) [place] # (Auto) Baso # (Auto) Seg Neutrophils % Seg Neuts % (Manual) Lymphocytes % (Manual) Seg Neutrophils # Seg Neutrophils # Man Lymphocytes # (Manual) D-Dimer ABG pH POC ABG pO2 ABG pO2 ABG HCO3 ABG O2 Saturation ABG Base Excess ABG Oxyhemoglobin ABG Sodium ABG Chloride ABG Glucose Oxyhemoglobin Carboxyhemoglobin Sodium Potassium 2.9 L* Chloride 95.0 L Carbon Dioxide 31 H BUN 23 H Creatinine 0.2 L Glucose 45 L POC Glucose 215 H Hemoglobin A1c Ferritin AST ALT Alkaline Phosphatase Lactate Dehydrogenase C-Reactive Protein Total Protein Albumin Arterial Blood Glucose Coronavirus (PCR) 06/21/21 06/21/21 06/21/21 07:38 09:06 12:40 WBC MCH MCHC RDW Lymph % (Auto) Lymph # (Auto) [place] # (Auto) Baso # (Auto) Seg Neutrophils % Seg Neuts % (Manual) Lymphocytes % (Manual) Seg Neutrophils # Seg Neutrophils # Man Lymphocytes # (Manual) D-Dimer ABG pH POC ABG pO2 ABG pO2 ABG HCO3 ABG O2 Saturation ABG Base Excess ABG Oxyhemoglobin ABG Sodium ABG Chloride ABG Glucose Oxyhemoglobin Carboxyhemoglobin Sodium Potassium Chloride Carbon Dioxide BUN Creatinine Glucose POC Glucose 50 L 196 H 205 H Hemoglobin A1c Ferritin AST ALT Alkaline Phosphatase Lactate Dehydrogenase C-Reactive Protein Total Protein Albumin Arterial Blood Glucose Coronavirus (PCR) 06/21/21 06/22/21 06/22/21 21:36 06:25 07:15 WBC MCH MCHC RDW Lymph % (Auto) Lymph # (Auto) [place] # (Auto) Baso # (Auto) Seg Neutrophils % Seg Neuts % (Manual) Lymphocytes % (Manual) Seg Neutrophils # Seg Neutrophils # Man Lymphocytes # (Manual) D-Dimer ABG pH POC ABG pO2 ABG pO2 ABG HCO3 ABG O2 Saturation ABG Base Excess ABG Oxyhemoglobin ABG Sodium ABG Chloride ABG Glucose Oxyhemoglobin Carboxyhemoglobin Sodium Potassium Chloride Carbon Dioxide BUN 20 H Creatinine 0.2 L Glucose POC Glucose 245 H 66 L Hemoglobin A1c Ferritin AST ALT Alkaline Phosphatase Lactate Dehydrogenase C-Reactive Protein Total Protein Albumin Arterial Blood Glucose Coronavirus (PCR) 06/22/21 06/22/2106/22/21 11:03 16:07 22:03 WBC MCH MCHC RDW Lymph % (Auto) Lymph # (Auto) [place] # (Auto) Baso # (Auto) Seg Neutrophils % Seg Neuts % (Manual) Lymphocytes % (Manual) Seg Neutrophils # Seg Neutrophils # Man Lymphocytes # (Manual) D-Dimer ABG pH POC ABG pO2 ABG pO2 ABG HCO3 ABG O2 Saturation ABG Base Excess ABG Oxyhemoglobin ABG Sodium ABG Chloride ABG Glucose Oxyhemoglobin Carboxyhemoglobin Sodium Potassium Chloride Carbon Dioxide BUN Creatinine Glucose POC Glucose 184 H 326 H 138 H Hemoglobin A1c Ferritin AST ALT Alkaline Phosphatase Lactate Dehydrogenase C-Reactive Protein Total Protein Albumin Arterial Blood Glucose Coronavirus (PCR) 06/23/21 06/23/21 06/23/21 07:19 10:34 16:35 WBC MCH MCHC RDW Lymph % (Auto) Lymph # (Auto) [place] # (Auto) Baso # (Auto) Seg Neutrophils % Seg Neuts % (Manual) Lymphocytes % (Manual) Seg Neutrophils # Seg Neutrophils # Man Lymphocytes # (Manual) D-Dimer ABG pH POC ABG pO2 ABG pO2 ABG HCO3 ABG O2 Saturation ABG Base Excess ABG Oxyhemoglobin ABG Sodium ABG Chloride ABG Glucose Oxyhemoglobin Carboxyhemoglobin Sodium Potassium Chloride Carbon Dioxide BUN Creatinine Glucose POC Glucose 69 L 218 H 326 H Hemoglobin A1c Ferritin AST ALT Alkaline Phosphatase Lactate Dehydrogenase C-Reactive Protein Total Protein Albumin Arterial Blood Glucose Coronavirus (PCR) 06/23/21 06/24/21 06/24/21 22:44 11:41 16:54 WBC MCH MCHC RDW Lymph % (Auto) Lymph # (Auto) [place] # (Auto) Baso # (Auto) Seg Neutrophils % Seg Neuts % (Manual) Lymphocytes % (Manual) Seg Neutrophils # Seg Neutrophils # Man Lymphocytes # (Manual) D-Dimer ABG pH POC ABG pO2 ABG pO2 ABG HCO3 ABG O2 Saturation ABG Base Excess ABG Oxyhemoglobin ABG Sodium ABG Chloride ABG Glucose Oxyhemoglobin Carboxyhemoglobin Sodium Potassium Chloride Carbon Dioxide BUN Creatinine Glucose POC Glucose 252 H 217 H 357 H Hemoglobin A1c Ferritin AST ALT Alkaline Phosphatase Lactate Dehydrogenase C-Reactive Protein Total Protein Albumin Arterial Blood Glucose Coronavirus (PCR) 06/24/21 06/25/21 06/25/21 20:40 11:51 16:47 WBC MCH MCHC RDW Lymph % (Auto) Lymph # (Auto) [place] # (Auto) Baso # (Auto) Seg Neutrophils % Seg Neuts % (Manual) Lymphocytes % (Manual) Seg Neutrophils # Seg Neutrophils # Man Lymphocytes # (Manual) D-Dimer ABG pH POC ABG pO2 ABG pO2 ABG HCO3 ABG O2 Saturation ABG Base Excess ABG Oxyhemoglobin ABG Sodium ABG Chloride ABG Glucose Oxyhemoglobin Carboxyhemoglobin Sodium Potassium Chloride Carbon Dioxide BUN Creatinine Glucose POC Glucose 239 H 182 H 229 H Hemoglobin A1c Ferritin AST ALT Alkaline Phosphatase Lactate Dehydrogenase C-Reactive Protein Total Protein Albumin Arterial Blood Glucose Coronavirus (PCR) 06/25/21 06/26/21 06/26/21 22:27 07:20 12:19 WBC MCH MCHC RDW Lymph % (Auto) Lymph # (Auto) [place] # (Auto) Baso # (Auto) Seg Neutrophils % Seg Neuts % (Manual) Lymphocytes % (Manual) Seg Neutrophils # Seg Neutrophils # Man Lymphocytes # (Manual) D-Dimer ABG pH POC ABG pO2 ABG pO2 ABG HCO3 ABG O2 Saturation ABG Base Excess ABG Oxyhemoglobin ABG Sodium ABG Chloride ABG Glucose Oxyhemoglobin Carboxyhemoglobin Sodium Potassium 3.2 L D Chloride Carbon Dioxide BUN 20 H Creatinine 0.3 L Glucose POC Glucose 209 H 273 H Hemoglobin A1c Ferritin AST ALT 77 H Alkaline Phosphatase Lactate Dehydrogenase C-Reactive Protein Total Protein Albumin 3.3 L Arterial Blood Glucose Coronavirus (PCR) 06/26/21 06/26/21 06/27/21 16:52 20:55 07:14 WBC MCH MCHC RDW Lymph % (Auto) Lymph # (Auto) [place] # (Auto) Baso # (Auto) Seg Neutrophils % Seg Neuts % (Manual) Lymphocytes % (Manual) Seg Neutrophils # Seg Neutrophils # Man Lymphocytes # (Manual) D-Dimer ABG pH POC ABG pO2 ABG pO2 ABG HCO3 ABG O2 Saturation ABG Base Excess ABG Oxyhemoglobin ABG Sodium ABG Chloride ABG Glucose Oxyhemoglobin Carboxyhemoglobin Sodium Potassium Chloride Carbon Dioxide 31 H BUN 19 H Creatinine 0.2 L Glucose 112 H POC Glucose 326 H 220 H Hemoglobin A1c Ferritin AST ALT Alkaline Phosphatase Lactate Dehydrogenase C-Reactive Protein Total Protein Albumin Arterial Blood Glucose Coronavirus (PCR) 06/27/21 06/27/21 06/27/21 07:29 10:54 15:49 WBC MCH MCHC RDW Lymph % (Auto) Lymph # (Auto) [place] # (Auto) Baso # (Auto) Seg Neutrophils % Seg Neuts % (Manual) Lymphocytes % (Manual) Seg Neutrophils # Seg Neutrophils # Man Lymphocytes # (Manual) D-Dimer ABG pH POC ABG pO2 ABG pO2 ABG HCO3 ABG O2 Saturation ABG Base Excess ABG Oxyhemoglobin ABG Sodium ABG Chloride ABG Glucose Oxyhemoglobin Carboxyhemoglobin Sodium Potassium Chloride Carbon Dioxide BUN Creatinine Glucose POC Glucose 115 H 228 H 240 H Hemoglobin A1c Ferritin AST ALT Alkaline Phosphatase Lactate Dehydrogenase C-Reactive Protein Total Protein Albumin Arterial Blood Glucose Coronavirus (PCR) 06/28/21 06/28/21 06/28/21 05:43 05:43 07:13 WBC MCH 33 H MCHC RDW 19.8 H Lymph % (Auto) Lymph # (Auto) [place] # (Auto) Baso # (Auto) Seg Neutrophils % Seg Neuts % (Manual) Lymphocytes % (Manual) Seg Neutrophils # Seg Neutrophils # Man Lymphocytes # (Manual) D-Dimer ABG pH POC ABG pO2 ABG pO2 ABG HCO3 ABG O2 Saturation ABG Base Excess ABG Oxyhemoglobin ABG Sodium ABG Chloride ABG Glucose Oxyhemoglobin Carboxyhemoglobin Sodium Potassium 3.3 L Chloride Carbon Dioxide BUN 22 H Creatinine 0.2 L Glucose POC Glucose 69 L Hemoglobin A1c Ferritin AST ALT 63 H Alkaline Phosphatase Lactate Dehydrogenase C-Reactive Protein Total Protein Albumin 3.3 L Arterial Blood Glucose Coronavirus (PCR) 06/28/21 06/28/21 06/28/21 12:18 15:37 21:01 WBC MCH MCHC RDW Lymph % (Auto) Lymph # (Auto) [place] # (Auto) Baso # (Auto) Seg Neutrophils % Seg Neuts % (Manual) Lymphocytes % (Manual) Seg Neutrophils # Seg Neutrophils # Man Lymphocytes # (Manual) D-Dimer ABG pH POC ABG pO2 ABG pO2 ABG HCO3 ABG O2 Saturation ABG Base Excess ABG Oxyhemoglobin ABG Sodium ABG Chloride ABG Glucose Oxyhemoglobin Carboxyhemoglobin Sodium Potassium Chloride Carbon Dioxide BUN Creatinine Glucose POC Glucose 154 H 201 H 191 H Hemoglobin A1c Ferritin AST ALT Alkaline Phosphatase Lactate Dehydrogenase C-Reactive Protein Total Protein Albumin Arterial Blood Glucose Coronavirus (PCR) 06/29/21 06/29/2121 11:55 15:47 21:06 WBC MCH MCHC RDW Lymph % (Auto) Lymph # (Auto) [place] # (Auto) Baso # (Auto) Seg Neutrophils % Seg Neuts % (Manual) Lymphocytes % (Manual) Seg Neutrophils # Seg Neutrophils # Man Lymphocytes # (Manual) D-Dimer ABG pH POC ABG pO2 ABG pO2 ABG HCO3 ABG O2 Saturation ABG Base Excess ABG Oxyhemoglobin ABG Sodium ABG Chloride ABG Glucose Oxyhemoglobin Carboxyhemoglobin Sodium Potassium Chloride Carbon Dioxide BUN Creatinine Glucose POC Glucose 238 H 249 H 155 H Hemoglobin A1c Ferritin AST ALT Alkaline Phosphatase Lactate Dehydrogenase C-Reactive Protein Total Protein Albumin Arterial Blood Glucose Coronavirus (PCR) 06/30/21 06/30/21 06/30/21 04:00 07:50 11:50 WBC MCH MCHC RDW Lymph % (Auto) Lymph # (Auto) [place] # (Auto) Baso # (Auto) Seg Neutrophils % Seg Neuts % (Manual) Lymphocytes % (Manual) Seg Neutrophils # Seg Neutrophils # Man Lymphocytes # (Manual) D-Dimer ABG pH POC ABG pO2 ABG pO2 ABG HCO3 ABG O2 Saturation ABG Base Excess ABG Oxyhemoglobin ABG Sodium ABG Chloride ABG Glucose Oxyhemoglobin Carboxyhemoglobin Sodium Potassium 3.5 L Chloride Carbon Dioxide BUN 18 H Creatinine 0.3 L Glucose 111 H POC Glucose 117 H 250 H Hemoglobin A1c Ferritin AST ALT Alkaline Phosphatase Lactate Dehydrogenase C-Reactive Protein Total Protein Albumin Arterial Blood Glucose Coronavirus (PCR) 06/30/21 06/30/21 07/01/21 16:05 21:02 07:26 WBC MCH MCHC RDW Lymph % (Auto) Lymph # (Auto) [place] # (Auto) Baso # (Auto) Seg Neutrophils % Seg Neuts % (Manual) Lymphocytes % (Manual) Seg Neutrophils # Seg Neutrophils # Man Lymphocytes # (Manual) D-Dimer ABG pH POC ABG pO2 ABG pO2 ABG HCO3 ABG O2 Saturation ABG Base Excess ABG Oxyhemoglobin ABG Sodium ABG Chloride ABG Glucose Oxyhemoglobin Carboxyhemoglobin Sodium Potassium Chloride Carbon Dioxide BUN Creatinine Glucose POC Glucose 250 H 217 H 111 H Hemoglobin A1c Ferritin AST ALT Alkaline Phosphatase Lactate Dehydrogenase C-Reactive Protein Total Protein Albumin Arterial Blood Glucose Coronavirus (PCR) 07/01/21 07/01/21 07/01/21 11:06 15:48 21:31 WBC MCH MCHC RDW Lymph % (Auto) Lymph # (Auto) [place] # (Auto) Baso # (Auto) Seg Neutrophils % Seg Neuts % (Manual) Lymphocytes % (Manual) Seg Neutrophils # Seg Neutrophils # Man Lymphocytes # (Manual) D-Dimer ABG pH POC ABG pO2 ABG pO2 ABG HCO3 ABG O2 Saturation ABG Base Excess ABG Oxyhemoglobin ABG Sodium ABG Chloride ABG Glucose Oxyhemoglobin Carboxyhemoglobin Sodium Potassium Chloride Carbon Dioxide BUN Creatinine Glucose POC Glucose 229 H 239 H 199 H Hemoglobin A1c Ferritin AST ALT Alkaline Phosphatase Lactate Dehydrogenase C-Reactive Protein Total Protein Albumin Arterial Blood Glucose Coronavirus (PCR) 07/02/21 07/02/21 07/02/21 11:50 16:44 21:49 WBC MCH MCHC RDW Lymph % (Auto) Lymph # (Auto) [place] # (Auto) Baso # (Auto) Seg Neutrophils % Seg Neuts % (Manual) Lymphocytes % (Manual) Seg Neutrophils # Seg Neutrophils # Man Lymphocytes # (Manual) D-Dimer ABG pH POC ABG pO2 ABG pO2 ABG HCO3 ABG O2 Saturation ABG Base Excess ABG Oxyhemoglobin ABG Sodium ABG Chloride ABG Glucose Oxyhemoglobin Carboxyhemoglobin Sodium Potassium Chloride Carbon Dioxide BUN Creatinine Glucose POC Glucose 230 H 203 H 197 H Hemoglobin A1c Ferritin AST ALT Alkaline Phosphatase Lactate Dehydrogenase C-Reactive Protein Total Protein Albumin Arterial Blood Glucose Coronavirus (PCR) 07/03/21 07/03/21 07/03/21 05:46 05:46 11:59 WBC MCH MCHC RDW 19.6 H Lymph % (Auto) Lymph # (Auto) [place] # (Auto) Baso # (Auto) Seg Neutrophils % Seg Neuts % (Manual) Lymphocytes % (Manual) Seg Neutrophils # Seg Neutrophils # Man Lymphocytes # (Manual) D-Dimer ABG pH POC ABG pO2 ABG pO2 ABG HCO3 ABG O2 Saturation ABG Base Excess ABG Oxyhemoglobin ABG Sodium ABG Chloride ABG Glucose Oxyhemoglobin Carboxyhemoglobin Sodium Potassium 3.2 L Chloride Carbon Dioxide BUN Creatinine 0.3 L Glucose POC Glucose 145 H Hemoglobin A1c Ferritin AST ALT Alkaline Phosphatase Lactate Dehydrogenase C-Reactive Protein Total Protein Albumin Arterial Blood Glucose Coronavirus (PCR) 07/03/21 07/03/21 07/04/21 16:40 22:00 06:35 WBC MCH MCHC RDW Lymph % (Auto) Lymph # (Auto) [place] # (Auto) Baso # (Auto) Seg Neutrophils % Seg Neuts % (Manual) Lymphocytes % (Manual) Seg Neutrophils # Seg Neutrophils # Man Lymphocytes # (Manual) D-Dimer ABG pH POC ABG pO2 ABG pO2 ABG HCO3 ABG O2 Saturation ABG Base Excess ABG Oxyhemoglobin ABG Sodium ABG Chloride ABG Glucose Oxyhemoglobin Carboxyhemoglobin Sodium Potassium Chloride Carbon Dioxide BUN Creatinine 0.3 L Glucose 118 H POC Glucose 176 H 127 H Hemoglobin A1c Ferritin AST ALT Alkaline Phosphatase Lactate Dehydrogenase C-Reactive Protein Total Protein Albumin Arterial Blood Glucose Coronavirus (PCR) 07/04/21 07/04/21 07/05/21 12:30 16:38 08:37 WBC MCH MCHC RDW Lymph % (Auto) Lymph # (Auto) [place] # (Auto) Baso # (Auto) Seg Neutrophils % Seg Neuts % (Manual) Lymphocytes % (Manual) Seg Neutrophils # Seg Neutrophils # Man Lymphocytes # (Manual) D-Dimer ABG pH POC ABG pO2 ABG pO2 ABG HCO3 ABG O2 Saturation ABG Base Excess ABG Oxyhemoglobin ABG Sodium ABG Chloride ABG Glucose Oxyhemoglobin Carboxyhemoglobin Sodium Potassium Chloride Carbon Dioxide BUN Creatinine Glucose POC Glucose 162 H 205 H 115 H Hemoglobin A1c Ferritin AST ALT Alkaline Phosphatase Lactate Dehydrogenase C-Reactive Protein Total Protein Albumin Arterial Blood Glucose Coronavirus (PCR) 07/05/21 07/05/21 07/05/21 10:57 16:42 21:14 WBC MCH MCHC RDW Lymph % (Auto) Lymph # (Auto) [place] # (Auto) Baso # (Auto) Seg Neutrophils % Seg Neuts % (Manual) Lymphocytes % (Manual) Seg Neutrophils # Seg Neutrophils # Man Lymphocytes # (Manual) D-Dimer ABG pH POC ABG pO2 ABG pO2 ABG HCO3 ABG O2 Saturation ABG Base Excess ABG Oxyhemoglobin ABG Sodium ABG Chloride ABG Glucose Oxyhemoglobin Carboxyhemoglobin Sodium Potassium Chloride Carbon Dioxide BUN Creatinine Glucose POC Glucose 151 H 184 H 130 H Hemoglobin A1c Ferritin AST ALT Alkaline Phosphatase Lactate Dehydrogenase C-Reactive Protein Total Protein Albumin Arterial Blood Glucose Coronavirus (PCR) 07/06/21 07/06/21 07/06/21 07:31 11:49 16:46 WBC MCH MCHC RDW Lymph % (Auto) Lymph # (Auto) [place] # (Auto) Baso # (Auto) Seg Neutrophils % Seg Neuts % (Manual) Lymphocytes % (Manual) Seg Neutrophils # Seg Neutrophils # Man Lymphocytes # (Manual) D-Dimer ABG pH POC ABG pO2 ABG pO2 ABG HCO3 ABG O2 Saturation ABG Base Excess ABG Oxyhemoglobin ABG Sodium ABG Chloride ABG Glucose Oxyhemoglobin Carboxyhemoglobin Sodium Potassium Chloride Carbon Dioxide BUN Creatinine Glucose POC Glucose 106 H 173 H 205 H Hemoglobin A1c Ferritin AST ALT Alkaline Phosphatase Lactate Dehydrogenase C-Reactive Protein Total Protein Albumin Arterial Blood Glucose Coronavirus (PCR) 07/06/21 07/07/21 07/07/21 21:38 06:00 06:00 WBC 16.1 H MCH MCHC RDW 18.8 H Lymph % (Auto) Lymph # (Auto) [place] # (Auto) 1.1 H Baso # (Auto) 0.2 H Seg Neutrophils % 74.9 H Seg Neuts % (Manual) Lymphocytes % (Manual) Seg Neutrophils # 12.1 H Seg Neutrophils # Man Lymphocytes # (Manual) D-Dimer ABG pH POC ABG pO2 ABG pO2 ABG HCO3 ABG O2 Saturation ABG Base Excess ABG Oxyhemoglobin ABG Sodium ABG Chloride ABG Glucose Oxyhemoglobin Carboxyhemoglobin Sodium Potassium 3.5 L D Chloride Carbon Dioxide BUN 6 L Creatinine < 0.2 L Glucose 106 H POC Glucose 120 H Hemoglobin A1c Ferritin AST ALT Alkaline Phosphatase Lactate Dehydrogenase C-Reactive Protein Total Protein Albumin Arterial Blood Glucose Coronavirus (PCR) 07/07/21 07/07/21 07/07/21 07:10 11:53 15:53 WBC MCH MCHC RDW Lymph % (Auto) Lymph # (Auto) [place] # (Auto) Baso # (Auto) Seg Neutrophils % Seg Neuts % (Manual) Lymphocytes % (Manual) Seg Neutrophils # Seg Neutrophils # Man Lymphocytes # (Manual) D-Dimer ABG pH POC ABG pO2 ABG pO2 ABG HCO3 ABG O2 Saturation ABG Base Excess ABG Oxyhemoglobin ABG Sodium ABG Chloride ABG Glucose Oxyhemoglobin Carboxyhemoglobin Sodium Potassium Chloride Carbon Dioxide BUN Creatinine Glucose POC Glucose 132 H 169 H 242 H Hemoglobin A1c Ferritin AST ALT Alkaline Phosphatase Lactate Dehydrogenase C-Reactive Protein Total Protein Albumin Arterial Blood Glucose Coronavirus (PCR) 07/07/21 07/08/2121 21:41 08:09 12:20 WBC MCH MCHC RDW Lymph % (Auto) Lymph # (Auto) [place] # (Auto) Baso # (Auto) Seg Neutrophils % Seg Neuts % (Manual) Lymphocytes % (Manual) Seg Neutrophils # Seg Neutrophils # Man Lymphocytes # (Manual) D-Dimer ABG pH POC ABG pO2 ABG pO2 ABG HCO3 ABG O2 Saturation ABG Base Excess ABG Oxyhemoglobin ABG Sodium ABG Chloride ABG Glucose Oxyhemoglobin Carboxyhemoglobin Sodium Potassium Chloride Carbon Dioxide BUN Creatinine Glucose POC Glucose 128 H 132 H 179 H Hemoglobin A1c Ferritin AST ALT Alkaline Phosphatase Lactate Dehydrogenase C-Reactive Protein Total Protein Albumin Arterial Blood Glucose Coronavirus (PCR) 07/08/21 07/08/21 07/08/21 16:37 21:45 22:44 WBC MCH MCHC RDW Lymph % (Auto) Lymph # (Auto) [place] # (Auto) Baso # (Auto) Seg Neutrophils % Seg Neuts % (Manual) Lymphocytes % (Manual) Seg Neutrophils # Seg Neutrophils # Man Lymphocytes # (Manual) D-Dimer ABG pH POC ABG pO2 ABG pO2 ABG HCO3 ABG O2 Saturation ABG Base Excess ABG Oxyhemoglobin ABG Sodium ABG Chloride ABG Glucose Oxyhemoglobin Carboxyhemoglobin Sodium Potassium Chloride Carbon Dioxide BUN Creatinine Glucose POC Glucose 192 H 51 L 137 H Hemoglobin A1c Ferritin AST ALT Alkaline Phosphatase Lactate Dehydrogenase C-Reactive Protein Total Protein Albumin Arterial Blood Glucose Coronavirus (PCR) 07/09/21 07/09/21 07/09/21 04:45 04:45 04:45 WBC MCH MCHC RDW 18.3 H Lymph % (Auto) Lymph # (Auto) [place] # (Auto) Baso # (Auto) Seg Neutrophils % Seg Neuts % (Manual) 82.0 H Lymphocytes % (Manual) 13.0 L Seg Neutrophils # Seg Neutrophils # Man 7.8 H Lymphocytes # (Manual) D-Dimer 638.35 H ABG pH POC ABG pO2 ABG pO2 ABG HCO3 ABG O2 Saturation ABG Base Excess ABG Oxyhemoglobin ABG Sodium ABG Chloride ABG Glucose Oxyhemoglobin Carboxyhemoglobin Sodium Potassium Chloride 96.9 L Carbon Dioxide 35 H BUN Creatinine 0.2 L Glucose 135 H POC Glucose Hemoglobin A1c Ferritin AST ALT Alkaline Phosphatase Lactate Dehydrogenase C-Reactive Protein 4.30 H Total Protein Albumin Arterial Blood Glucose Coronavirus (PCR) 07/09/21 07/09/21 07/09/21 05:19 07:36 11:16 WBC MCH MCHC RDW Lymph % (Auto) Lymph # (Auto) [place] # (Auto) Baso # (Auto) Seg Neutrophils % Seg Neuts % (Manual) Lymphocytes % (Manual) Seg Neutrophils # Seg Neutrophils # Man Lymphocytes # (Manual) D-Dimer ABG pH POC ABG pO2 ABG pO2 ABG HCO3 ABG O2 Saturation ABG Base Excess ABG Oxyhemoglobin ABG Sodium ABG Chloride ABG Glucose Oxyhemoglobin Carboxyhemoglobin Sodium Potassium Chloride Carbon Dioxide BUN Creatinine Glucose POC Glucose 135 H 148 H 212 H Hemoglobin A1c Ferritin AST ALT Alkaline Phosphatase Lactate Dehydrogenase C-Reactive Protein Total Protein Albumin Arterial Blood Glucose Coronavirus (PCR) 07/09/21 07/09/21 07/10/21 15:21 21:12 05:40 WBC MCH MCHC RDW Lymph % (Auto) Lymph # (Auto) [place] # (Auto) Baso # (Auto) Seg Neutrophils % Seg Neuts % (Manual) Lymphocytes % (Manual) Seg Neutrophils # Seg Neutrophils # Man Lymphocytes # (Manual) D-Dimer ABG pH POC ABG pO2 ABG pO2 ABG HCO3 ABG O2 Saturation ABG Base Excess ABG Oxyhemoglobin ABG Sodium ABG Chloride ABG Glucose Oxyhemoglobin Carboxyhemoglobin Sodium Potassium 3.3 L Chloride 95.1 L Carbon Dioxide 39 H BUN Creatinine 0.2 L Glucose 122 H POC Glucose 128 H 196 H Hemoglobin A1c Ferritin AST ALT Alkaline Phosphatase Lactate Dehydrogenase C-Reactive Protein Total Protein Albumin Arterial Blood Glucose Coronavirus (PCR) 07/10/21 07/10/21 07/10/21 07:38 11:15 16:29 WBC MCH MCHC RDW Lymph % (Auto) Lymph # (Auto) [place] # (Auto) Baso # (Auto) Seg Neutrophils % Seg Neuts % (Manual) Lymphocytes % (Manual) Seg Neutrophils # Seg Neutrophils # Man Lymphocytes # (Manual) D-Dimer ABG pH POC ABG pO2 ABG pO2 ABG HCO3 ABG O2 Saturation ABG Base Excess ABG Oxyhemoglobin ABG Sodium ABG Chloride ABG Glucose Oxyhemoglobin Carboxyhemoglobin Sodium Potassium Chloride Carbon Dioxide BUN Creatinine Glucose POC Glucose 128 H 175 H 174 H Hemoglobin A1c Ferritin AST ALT Alkaline Phosphatase Lactate Dehydrogenase C-Reactive Protein Total Protein Albumin Arterial Blood Glucose Coronavirus (PCR) 07/10/21 07/11/21 07/11/21 20:49 05:50 12:08 WBC MCH MCHC RDW Lymph % (Auto) Lymph # (Auto) [place] # (Auto) Baso # (Auto) Seg Neutrophils % Seg Neuts % (Manual) Lymphocytes % (Manual) Seg Neutrophils # Seg Neutrophils # Man Lymphocytes # (Manual) D-Dimer ABG pH POC ABG pO2 ABG pO2 ABG HCO3 ABG O2 Saturation ABG Base Excess ABG Oxyhemoglobin ABG Sodium ABG Chloride ABG Glucose Oxyhemoglobin Carboxyhemoglobin Sodium Potassium Chloride 97.3 L Carbon Dioxide 34 H BUN Creatinine 0.2 L Glucose 109 H POC Glucose 142 H 220 H Hemoglobin A1c Ferritin AST ALT Alkaline Phosphatase Lactate Dehydrogenase C-Reactive Protein Total Protein Albumin Arterial Blood Glucose Coronavirus (PCR) 07/11/21 07/11/21 07/12/21 17:09 21:55 07:36 WBC MCH MCHC RDW Lymph % (Auto) Lymph # (Auto) [place] # (Auto) Baso # (Auto) Seg Neutrophils % Seg Neuts % (Manual) Lymphocytes % (Manual) Seg Neutrophils # Seg Neutrophils # Man Lymphocytes # (Manual) D-Dimer ABG pH POC ABG pO2 ABG pO2 ABG HCO3 ABG O2 Saturation ABG Base Excess ABG Oxyhemoglobin ABG Sodium ABG Chloride ABG Glucose Oxyhemoglobin Carboxyhemoglobin Sodium Potassium Chloride Carbon Dioxide BUN Creatinine Glucose POC Glucose 219 H 124 H 114 H Hemoglobin A1c Ferritin AST ALT Alkaline Phosphatase Lactate Dehydrogenase C-Reactive Protein Total Protein Albumin Arterial Blood Glucose Coronavirus (PCR) 07/12/21 07/12/21 07/12/21 11:08 15:43 22:20 WBC MCH MCHC RDW Lymph % (Auto) Lymph # (Auto) [place] # (Auto) Baso # (Auto) Seg Neutrophils % Seg Neuts % (Manual) Lymphocytes % (Manual) Seg Neutrophils # Seg Neutrophils # Man Lymphocytes # (Manual) D-Dimer ABG pH POC ABG pO2 ABG pO2 ABG HCO3 ABG O2 Saturation ABG Base Excess ABG Oxyhemoglobin ABG Sodium ABG Chloride ABG Glucose Oxyhemoglobin Carboxyhemoglobin Sodium Potassium Chloride Carbon Dioxide BUN Creatinine Glucose POC Glucose 195 H 276 H 189 H Hemoglobin A1c Ferritin AST ALT Alkaline Phosphatase Lactate Dehydrogenase C-Reactive Protein Total Protein Albumin Arterial Blood Glucose Coronavirus (PCR) 07/13/21 07/13/21 07/13/21 08:01 08:08 10:17 WBC MCH MCHC RDW Lymph % (Auto) Lymph # (Auto) [place] # (Auto) Baso # (Auto) Seg Neutrophils % Seg Neuts % (Manual) Lymphocytes % (Manual) Seg Neutrophils # Seg Neutrophils # Man Lymphocytes # (Manual) D-Dimer ABG pH POC ABG pO2 ABG pO2 ABG HCO3 ABG O2 Saturation ABG Base Excess ABG Oxyhemoglobin ABG Sodium ABG Chloride ABG Glucose Oxyhemoglobin Carboxyhemoglobin Sodium Potassium Chloride 94.4 L Carbon Dioxide 34 H BUN Creatinine 0.3 L Glucose 149 H POC Glucose 132 H 265 H Hemoglobin A1c Ferritin AST ALT Alkaline Phosphatase Lactate Dehydrogenase C-Reactive Protein Total Protein Albumin Arterial Blood Glucose Coronavirus (PCR) 07/13/21 07/13/21 07/14/21 17:58 21:41 07:34 WBC MCH MCHC RDW Lymph % (Auto) Lymph # (Auto) [place] # (Auto) Baso # (Auto) Seg Neutrophils % Seg Neuts % (Manual) Lymphocytes % (Manual) Seg Neutrophils # Seg Neutrophils # Man Lymphocytes # (Manual) D-Dimer ABG pH POC ABG pO2 ABG pO2 ABG HCO3 ABG O2 Saturation ABG Base Excess ABG Oxyhemoglobin ABG Sodium ABG Chloride ABG Glucose Oxyhemoglobin Carboxyhemoglobin Sodium Potassium Chloride Carbon Dioxide BUN Creatinine Glucose POC Glucose 217 H 223 H 116 H Hemoglobin A1c Ferritin AST ALT Alkaline Phosphatase Lactate Dehydrogenase C-Reactive Protein Total Protein Albumin Arterial Blood Glucose Coronavirus (PCR) 07/14/21 07/14/21 07/14/21 10:50 17:33 20:51 WBC MCH MCHC RDW Lymph % (Auto) Lymph # (Auto) [place] # (Auto) Baso # (Auto) Seg Neutrophils % Seg Neuts % (Manual) Lymphocytes % (Manual) Seg Neutrophils # Seg Neutrophils # Man Lymphocytes # (Manual) D-Dimer ABG pH POC ABG pO2 ABG pO2 ABG HCO3 ABG O2 Saturation ABG Base Excess ABG Oxyhemoglobin ABG Sodium ABG Chloride ABG Glucose Oxyhemoglobin Carboxyhemoglobin Sodium Potassium Chloride Carbon Dioxide BUN Creatinine Glucose POC Glucose 191 H 173 H 132 H Hemoglobin A1c Ferritin AST ALT Alkaline Phosphatase Lactate Dehydrogenase C-Reactive Protein Total Protein Albumin Arterial Blood Glucose Coronavirus (PCR) 07/15/21 07/15/21 07/15/21 04:00 07:59 12:31 WBC MCH MCHC RDW Lymph % (Auto) Lymph # (Auto) [place] # (Auto) Baso # (Auto) Seg Neutrophils % Seg Neuts % (Manual) Lymphocytes % (Manual) Seg Neutrophils # Seg Neutrophils # Man Lymphocytes # (Manual) D-Dimer ABG pH POC ABG pO2 ABG pO2 ABG HCO3 ABG O2 Saturation ABG Base Excess ABG Oxyhemoglobin ABG Sodium ABG Chloride ABG Glucose Oxyhemoglobin Carboxyhemoglobin Sodium Potassium Chloride 96.0 L Carbon Dioxide 32 H BUN Creatinine 0.3 L Glucose 208 H POC Glucose 117 H 195 H Hemoglobin A1c Ferritin AST ALT Alkaline Phosphatase Lactate Dehydrogenase C-Reactive Protein Total Protein Albumin Arterial Blood Glucose Coronavirus (PCR) 07/15/21 07/15/21 07/16/21 18:00 20:57 04:40 WBC MCH MCHC RDW 17.1 H Lymph % (Auto) Lymph # (Auto) [place] # (Auto) Baso # (Auto) Seg Neutrophils % Seg Neuts % (Manual) Lymphocytes % (Manual) Seg Neutrophils # Seg Neutrophils # Man Lymphocytes # (Manual) D-Dimer ABG pH POC ABG pO2 ABG pO2 ABG HCO3 ABG O2 Saturation ABG Base Excess ABG Oxyhemoglobin ABG Sodium ABG Chloride ABG Glucose Oxyhemoglobin Carboxyhemoglobin Sodium Potassium Chloride Carbon Dioxide BUN Creatinine Glucose POC Glucose 217 H 111 H Hemoglobin A1c Ferritin AST ALT Alkaline Phosphatase Lactate Dehydrogenase C-Reactive Protein Total Protein Albumin Arterial Blood Glucose Coronavirus (PCR) 07/16/21 07/16/21 07/16/21 04:40 07:08 11:11 WBC MCH MCHC RDW Lymph % (Auto) Lymph # (Auto) [place] # (Auto) Baso # (Auto) Seg Neutrophils % Seg Neuts % (Manual) Lymphocytes % (Manual) Seg Neutrophils # Seg Neutrophils # Man Lymphocytes # (Manual) D-Dimer ABG pH POC ABG pO2 ABG pO2 ABG HCO3 ABG O2 Saturation ABG Base Excess ABG Oxyhemoglobin ABG Sodium ABG Chloride ABG Glucose Oxyhemoglobin Carboxyhemoglobin Sodium Potassium 3.4 L Chloride 94.6 L Carbon Dioxide 36 H BUN Creatinine < 0.2 L Glucose 101 H POC Glucose 118 H 184 H Hemoglobin A1c Ferritin AST ALT Alkaline Phosphatase Lactate Dehydrogenase C-Reactive Protein Total Protein Albumin Arterial Blood Glucose Coronavirus (PCR) 07/16/21 07/16/21 07/17/21 17:29 22:01 08:10 WBC MCH MCHC RDW Lymph % (Auto) Lymph # (Auto) [place] # (Auto) Baso # (Auto) Seg Neutrophils % Seg Neuts % (Manual) Lymphocytes % (Manual) Seg Neutrophils # Seg Neutrophils # Man Lymphocytes # (Manual) D-Dimer ABG pH POC ABG pO2 ABG pO2 ABG HCO3 ABG O2 Saturation ABG Base Excess ABG Oxyhemoglobin ABG Sodium ABG Chloride ABG Glucose Oxyhemoglobin Carboxyhemoglobin Sodium Potassium Chloride Carbon Dioxide BUN Creatinine Glucose POC Glucose 200 H 147 H 118 H Hemoglobin A1c Ferritin AST ALT Alkaline Phosphatase Lactate Dehydrogenase C-Reactive Protein Total Protein Albumin Arterial Blood Glucose Coronavirus (PCR)
--- NOTE | 2021-07-17 13:08 | Progress Note ---
Assessment and Plan Assessment and plan: #Acute hypoxic respiratory failure -Currently on high flow nasal cannula (35 L, 70% FiO2) -Discontinue prednisone per pulmonology. -Pulmonology following, assistance appreciated -Referral sent for LTACH (patient stay 90 days) and rejected x3. -encouraged prone positioning -will assess need for lasix PRN #Heart failure with preserved ejection fraction -TTE: LVEF 55-60% with diastolic dysfunction -will continue to monitor for signs of fluid overload #COVID-19 infection #COVID-19 pneumonia -Continue Covid vitamins #Insulin-dependent type 2 diabetes mellitus -Continue Lantus 15 units daily and sliding scale insulin #Dysuria-resolved #Possible UTI-resolved -Urinalysis ordered 07/09, not collected -s/p Levaquin x3 days #Anxiety -Stable -Continue Xanax #DVT prophylaxis -Lovenox 40 daily #Deconditioning -Will benefit from SNF after prolonged hospital stay, Resolved issues #Sepsis secondary to COVID-19 #Iatrogenic diarrhea #Hypomagnesemia #Hyponatremia #Protein calorie malnutrition Disposition Plan: Continue medical management Total Time Spent with Patient (Minutes): 40 minutes History Interval history: No acute events overnight. Hospitalist Physical - Constitutional Vitals: Temp Pulse Resp BP Pulse Ox 98.6 F 103 H 18 122/73 94 07/17/21 11:37 07/17/21 11:37 07/17/21 11:37 07/17/21 11:37 07/17/21 11:37 General appearance: Present: no acute distress, well-nourished, obese, disheveled - EENT Eyes: Present: PERRL, EOM intact ENT: hearing intact, clear oral mucosa, dentition normal - Neck Neck: Present: supple, normal ROM - Respiratory Respiratory effort: normal Respiratory: bilateral: diminished, rhonchi Details: Currently on high flow 35 L 70% FiO2 and 100% nonrebreather - Cardiovascular Rhythm: regular Heart Sounds: Present: S1 & S2 - Extremities Extremities: no ischemia, pulses intact, pulses symmetrical, No edema, normal temperature, normal color Peripheral Pulses: within normal limits - Abdominal General gastrointestinal: soft, non-tender, non-distended, normal bowel sounds - Integumentary Integumentary: Present: clear, warm, dry - Psychiatric Psychiatric: appropriate mood/affect, intact judgment & insight, memory intact, cooperative - Neurologic Neurologic: CNII-XII intact, moves all extremities - Allied Health Allied health notes reviewed: nursing Results - Labs CBC & Chem 7: 07/16/21 04:40 07/16/21 04:40 Labs: Laboratory Last Values WBC 8.0 K/mm3 (4.5-11.0) 07/16/21 04:40 RBC 4.08 M/mm3 (3.65-5.03) 07/16/21 04:40 Hgb 12.5 gm/dl (10.1-14.3) 07/16/21 04:40 Hct 39.2 % (30.3-42.9) 07/16/21 04:40 MCV 96 fl (79-97) 07/16/21 04:40 MCH 31 pg (28-32) 07/16/21 04:40 MCHC 32 % (30-34) 07/16/21 04:40 RDW 17.1 % (13.2-15.2) H 07/16/21 04:40 Plt Count 308 K/mm3 (140-440) 07/16/21 04:40 Lymph % (Auto) 15.6 % (13.4-35.0) 07/07/21 06:00 [place] % (Auto) 6.6 % (0.0-7.3) 07/07/21 06:00 Eos % (Auto) 1.9 % (0.0-4.3) 07/07/21 06:00 Baso % (Auto) 1.0 % (0.0-1.8) 07/07/21 06:00 Lymph # (Auto) 2.5 K/mm3 (1.2-5.4) 07/07/21 06:00 [place] # (Auto) 1.1 K/mm3 (0.0-0.8) H 07/07/21 06:00 Eos # (Auto) 0.3 K/mm3 (0.0-0.4) 07/07/21 06:00 Baso # (Auto) 0.2 K/mm3 (0.0-0.1) H 07/07/21 06:00 Add Manual Diff Complete 07/09/21 04:45 Total Counted 100 07/09/21 04:45 Seg Neutrophils % 74.9 % (40.0-70.0) H 07/07/21 06:00 Seg Neuts % (Manual) 82.0 % (40.0-70.0) H 07/09/21 04:45 Band Neutrophils % 1.0 % 05/12/21 04:05 Lymphocytes % (Manual) 13.0 % (13.4-35.0) L 07/09/21 04:45 Monocytes % (Manual) 3.0 % (0.0-7.3) 07/09/21 04:45 Eosinophils % (Manual) 2.0 % (0.0-4.3) 07/09/21 04:45 Nucleated RBC % Not Reportable 07/09/21 04:45 Seg Neutrophils # 12.1 K/mm3 (1.8-7.7) H 07/07/21 06:00 Seg Neutrophils # Man 7.8 K/mm3 (1.8-7.7) H 07/09/21 04:45 Band Neutrophils # 0.0 K/mm3 07/09/21 04:45 Lymphocytes # (Manual) 1.2 K/mm3 (1.2-5.4) 07/09/21 04:45 Abs React Lymphs (Man) 0.0 K/mm3 07/09/21 04:45 Monocytes # (Manual) 0.3 K/mm3 (0.0-0.8) 07/09/21 04:45 Eosinophils # (Manual) 0.2 K/mm3 (0.0-0.4) 07/09/21 04:45 Basophils # (Manual) 0.0 K/mm3 (0.0-0.1) 07/09/21 04:45 Metamyelocytes # 0.0 K/mm3 07/09/21 04:45 Myelocytes # 0.0 K/mm3 07/09/21 04:45 Promyelocytes # 0.0 K/mm3 07/09/21 04:45 Blast Cells # 0.0 K/mm3 07/09/21 04:45 WBC Morphology Not Reportable 07/09/21 04:45 Hypersegmented Neuts Not Reportable 07/09/21 04:45 Hyposegmented Neuts Not Reportable 07/09/21 04:45 Hypogranular Neuts Not Reportable 07/09/21 04:45 Smudge Cells Not Reportable 07/09/21 04:45 Toxic Granulation Not Reportable 07/09/21 04:45 Toxic Vacuolation Not Reportable 07/09/21 04:45 Dohle Bodies Not Reportable 07/09/21 04:45 Pelger-Huet Anomaly Not Reportable 07/09/21 04:45 Janelle Rods Not Reportable 07/09/21 04:45 Platelet Estimate Consistent w auto 07/09/21 04:45 Clumped Platelets Not Reportable 07/09/21 04:45 Plt Clumps, EDTA Not Reportable 07/09/21 04:45 Large Platelets Not Reportable 07/09/21 04:45 Giant Platelets Rare 07/09/21 04:45 Platelet Satelliting Not Reportable 07/09/21 04:45 Plt Morphology Comment Not Reportable 07/09/21 04:45 RBC Morphology Not Reportable 07/09/21 04:45 Dimorphic RBCs Not Reportable 07/09/21 04:45 Polychromasia Not Reportable 07/09/21 04:45 Hypochromasia Few 07/09/21 04:45 Poikilocytosis Not Reportable 07/09/21 04:45 Anisocytosis Not Reportable 07/09/21 04:45 Microcytosis Not Reportable 07/09/21 04:45 Macrocytosis Not Reportable 07/09/21 04:45 Spherocytes Not Reportable 07/09/21 04:45 Pappenheimer Bodies Not Reportable 07/09/21 04:45 Sickle Cells Not Reportable 07/09/21 04:45 Target Cells Not Reportable 07/09/21 04:45 Tear Drop Cells Not Reportable 07/09/21 04:45 Ovalocytes Not Reportable 07/09/21 04:45 Stomatocytes 1+ 07/09/21 04:45 Helmet Cells Not Reportable 07/09/21 04:45 Ahuja-Verdel Bodies Not Reportable 07/09/21 04:45 [place] Rings Not Reportable 07/09/21 04:45 [place] Cells Not Reportable 07/09/21 04:45 Bite Cells Not Reportable 07/09/21 04:45 Crenated Cell Not Reportable 07/09/21 04:45 Elliptocytes Not Reportable 07/09/21 04:45 Acanthocytes (Spur) Not Reportable 07/09/21 04:45 Rouleaux Not Reportable 07/09/21 04:45 Hemoglobin C Crystals Not Reportable 07/09/21 04:45 Schistocytes Not Reportable 07/09/21 04:45 Malaria parasites Not Reportable 07/09/21 04:45 Justin Bodies Not Reportable 07/09/21 04:45 Hem Pathologist Commnt No 07/09/21 04:45 D-Dimer 638.35 ng/mlDDU (0-234) H 07/09/21 04:45 ABG pH 7.403 pH Units (7.350-7.450) 05/14/21 02:23 POC ABG pCO2 45.4 mmHg (32.0-48.0) 05/03/21 04:49 ABG pCO2 50.2 mm Hg 05/14/21 02:23 POC ABG pO2 65.3 mmHg (83-108) L 05/03/21 04:49 ABG pO2 130.3 mm Hg (80.0-90.0) H 05/14/21 02:23 POC ABG HCO3 18.5 05/03/21 04:49 ABG HCO3 30.6 mmol/L (20.0-26.0) H 05/14/21 02:23 ABG O2 Saturation 98.5 % (95.0-99.0) 05/14/21 02:23 ABG O2 Content 17.9 (0.0-44) 05/14/21 02:23 POC ABG Base Excess -8.9 05/03/21 04:49 ABG Base Excess 4.9 mmol/L (-2.0-3.0) H 05/14/21 02:23 ABG Hemoglobin 13.0 gm/dl (12.0-16.0) 05/14/21 02:23 ABG Oxyhemoglobin 87.8 (94-98) L 05/03/21 04:49 ABG Carboxyhemoglobin 1.4 % (0.0-5.0) 05/14/21 02:23 ABG Methemoglobin 0.6 % (0.0-1.5) 05/14/21 02:23 ABG Sodium 133.0 mmol/L (136.0-145.0) L 05/03/21 04:49 ABG Potassium 3.9 mmol/L (3.40-4.50) 05/03/21 04:49 ABG Chloride 97.0 mmol/L (98-107) L 05/03/21 04:49 ABG Glucose 403 mg/dL (65-95) H 05/03/21 04:49 Oxyhemoglobin 96.5 % (95.0-99.0) 05/14/21 02:23 Carboxyhemoglobin 0.6 (0.5-1.5) 05/03/21 04:49 FiO2 90 % 05/14/21 02:23 FiO2 % 100.0 05/03/21 04:49 Sodium 140 mmol/L (137-145) 07/16/21 04:40 Potassium 3.4 mmol/L (3.6-5.0) L 07/16/21 04:40 Chloride 94.6 mmol/L (98-107) L 07/16/21 04:40 Carbon Dioxide 36 mmol/L (22-30) H 07/16/21 04:40 Anion Gap 13 mmol/L 07/16/21 04:40 BUN 12 mg/dL (7-17) 07/16/21 04:40 Creatinine < 0.2 mg/dL (0.6-1.2) L 07/16/21 04:40 Estimated GFR > 60 ml/min 07/16/21 04:40 BUN/Creatinine Ratio 60 % 07/16/21 04:40 Glucose 101 mg/dL (65-100) H 07/16/21 04:40 POC Glucose 151 mg/dL (70-105) H 07/17/21 11:38 Hemoglobin A1c 8.5 % (4-6) H 04/18/21 07:36 Calcium 9.1 mg/dL (8.4-10.2) 07/16/21 04:40 Phosphorus 3.60 mg/dL (2.5-4.5) 07/09/21 04:45 Magnesium 1.90 mg/dL (1.7-2.3) 07/09/21 04:45 Ferritin 155.9 ng/mL (10.0-200.0) 07/09/21 04:45 Total Bilirubin 0.30 mg/dL (0.1-1.2) 06/28/21 05:43 AST 19 units/L (5-40) 06/28/21 05:43 ALT 63 units/L (7-56) H 06/28/21 05:43 Alkaline Phosphatase 61 units/L (35-129) 06/28/21 05:43 Lactate Dehydrogenase 475 units/L (91-180) H 06/05/21 05:26 C-Reactive Protein 4.30 mg/dL (0.00-1.30) H 07/09/21 04:45 NT-Pro-B Natriuret Pep 59.45 pg/mL (0-450) 07/07/21 13:40 Total Protein 6.5 g/dL (6.3-8.2) 06/28/21 05:43 Albumin 3.3 g/dL (3.9-5) L 06/28/21 05:43 Albumin/Globulin Ratio 1.0 % 06/28/21 05:43 Triglycerides < 9 mg/dL (2-149) 05/03/21 04:30 Procalcitonin < 0.05 ng/mL (<0.15) 05/23/21 09:50 Arterial Blood Glucose 403 mg/dL (65-95) H 05/03/21 04:49 Arterial Blood Ionized Calcium 4.9 mg/dL (4.6-5.3) 05/03/21 04:49 Coronavirus (PCR) Positive (Negative) A 06/05/21 08:30 Amos/IV: Voiding Method Bedpan Active Medications - Current Medications Current Medications: Generic Name Dose Route Start Last Admin Trade Name Freq PRN Reason Stop Dose Admin Acetaminophen 650 mg 07/02/21 17:48 07/15/21 21:06 Acetaminophen 325 Mg Tab PO 650 mg Q4H PRN Administration Pain, Mild (1-3) Albuterol 2.5 mg 04/16/21 13:39 04/21/21 20:39 Albuterol 2.5 Mg/3 Ml Nebu IH 2.5 mg Q4HRT PRN Administration Shortness Of Breath Alprazolam 2 mg 07/04/21 12:00 07/17/21 09:07 Alprazolam 1 Mg Tab PO 2 mg BID TUTU Administration Ascorbic Acid 500 mg 04/24/21 10:00 07/17/21 09:07 Ascorbic Acid 500 Mg Tab PO 500 mg QDAY TUTU Administration Cholecalciferol 1,000 unit 04/17/21 10:00 07/17/21 09:08 Cholecalciferol (Vit D3) 1000 Unit (25 Mcg) Tab PO 1,000 unit QDAY TUTU Administration Enoxaparin Sodium 40 mg 05/19/21 22:00 07/16/21 21:41 Enoxaparin 40 Mg/0.4 Ml Inj SUB-Q 40 mg QDAY@2200 TUTU Administration Protocol Ibuprofen 600 mg 07/11/21 11:00 07/16/21 22:03 Ibuprofen 600 Mg Tab PO 600 mg Q6H PRN Administration Ear Pain Insulin Glargine 15 units 06/25/21 10:00 07/17/21 09:08 Insulin Glargine 100 Units/Ml SUB-Q 15 units DAILY TUTU Administration Insulin Human Lispro 0 unit 05/18/21 12:00 07/17/21 12:30 Insulin Lispro 100 Unit/Ml SUB-Q 3 unit ACHS TUTU Administration Protocol Ondansetron HCl 4 mg 04/16/21 14:00 05/30/21 10:07 Ondansetron 4 Mg/2 Ml Inj IV 4 mg Q8H PRN Administration Nausea And Vomiting Polyethylene Glycol 17 gm 07/16/21 20:00 Polyethylene Glycol 3350 17 Gm Powder PO QDAY PRN Constipation Sodium Chloride 10 ml 04/16/21 13:39 07/15/21 21:07 Sodium Chloride 0.9% 10 Ml Flush Syringe IV 10 ml PRN PRN Administration LINE FLUSH Zinc Sulfate 220 mg 04/16/21 22:00 07/17/21 09:08 Zinc Sulfate 220 Mg Cap PO 220 mg BID TUTU Administration Zolpidem Tartrate 10 mg 05/26/21 08:56 07/16/21 22:04 Zolpidem 5 Mg Tab PO 10 mg QHS PRN Administration Insomnia Nutrition/Malnutrition Assess - Dietary Evaluation Nutrition/Malnutrition Findings: Nutrition Notes Start: 04/23/21 07:41 Freq: Status: Active Protocol: Document 07/03/21 16:54 GB (Rec: 07/03/21 17:11 GB [id number]) Nutrition Notes Initial or Follow up Reassessment Current Diagnosis Respiratory Failure Other Pertinent Diagnosis oral thrush, COVID-19 pneu Current Diet consistent carbohydrate Labs/Tests 07/03: creatinine 0.3, K 3.2 Pertinent Medications Vit C, Vit D3, D5 (PRN), Prednisone, NaCl, Zn Sulfate Height 4 ft 11.84 in Weight 60.3 kg [place] Body Weight (kg) 45.09 BMI 26.1 Weight change and time frame 04/16/21: 74.843kg 05/17/21: 68.1kg 06/16/21: 60.3kg change of -14.54kg for -19.43% in 60 days. Per MD note: pt has been diuresed thorughout stay. Weight Status Overweight Subjective/Other Information MD notes 07/03: pt showing improvement, prednisone weaning down, possible weaning of O2. Last BM: 07/02 PO intake recorded at 50-100% Percent of energy/protein needs met: PO intake of meals meet 75% or greater of EEN Burn Absent Trauma Absent GI Symptoms None Food Allergy No Skin Integrity/Comment skin tear rt/lt buttocks Current % PO Good (75-100%) Minimum of two criteria No #3 Nutrition Diagnosis No nutrition diagnosis at this time Etiology respiratory failure As Evidenced by Signs and Symptoms recovering, good po, weight loss r/t diurese therapy #2 Nutrition Diagnosis Malnutrition Comments: Wt loss due to diurese for most of stay. PO intake is recorded at 75- 100% Etiology acute illness As Evidenced by Signs and Symptoms <50% EER in >5 days, >5% wt loss in 1 month Diagnosis Progress(for reassessment Resolved documentation) #1 Nutrition Diagnosis Inadequate oral intake Etiology ARF As Evidenced by Signs and Symptoms pt continues to meet 100%/93% of kcal/protein needs Diagnosis Progress(for reassessment Resolved documentation) Is patient on ventilator? No Is Patient Ambulatory and/or Out of Bed Yes REE-([facility]-ambulatory/OOB) [ 1491.022 [id number]] Kcal/Kg value to use for calculation 25 Approximate Energy Requirements Using 1508 kcal/Kg Calculation Used for Recommendations Kcal/kg Additional Notes Pro needs 1-1.2g/kg @ 60k -72g/day Fluid needs 1ml/kcal or per MD Nutrition Intervention Change Diet Order: continue Nutrition Support: n/a Add Supplement/Snack (indicate name/kcal n/a /protein ) Goal #1 PO intake of meals to be 75% or greater daily for LOS Goal #2 Weight to stabilize +/-3% current weight for LOS Follow-Up By: 08/07/21 Additional Comments f/u: po intake, weight - Attestation Statement I have reviewed and agreed w/ Malnutrition eval & tx plan: Yes
[2021-07-17] MEDS: ENOXAPARIN 40 MG/0.4 ML INJ SUB-Q SCH (21:40)
[2021-07-18] MEDS: INSULIN LISPRO 100 UNIT/ML SUB-Q SCH ×4 (09:01→23:11)
[2021-07-18] MEDS: INSULIN GLARGINE 100 UNITS/ML SUB-Q SCH (09:07)
[2021-07-18] MEDS: CHOLECALCIFEROL (VIT D3) 1000 UNIT (25 mcg) TAB PO SCH (09:36)
[2021-07-18] MEDS: ALPRAZolam 1 MG TAB PO SCH ×2 (09:36→23:10)
[2021-07-18] MEDS: ASCORBIC ACID 500 MG TAB PO SCH (09:36)
[2021-07-18] MEDS: ZINC SULFATE 220 MG CAP PO SCH ×2 (09:36→23:10)
--- NOTE | 2021-07-18 14:19 | Progress Note ---
Assessment and Plan Assessment and plan: #Acute hypoxic respiratory failure -Currently on high flow nasal cannula (30 L, 70% FiO2) -Discontinue prednisone per pulmonology. -Pulmonology following, assistance appreciated -Referral sent for LTACH (patient stay 90 days) and rejected x3. -encouraged prone positioning -will assess need for lasix PRN #Heart failure with preserved ejection fraction -TTE: LVEF 55-60% with diastolic dysfunction -will continue to monitor for signs of fluid overload #COVID-19 infection #COVID-19 pneumonia -Continue Covid vitamins #Insulin-dependent type 2 diabetes mellitus -Continue Lantus 15 units daily and sliding scale insulin #Dysuria-resolved #Possible UTI-resolved -Urinalysis ordered 07/09, not collected -s/p Levaquin x3 days #Anxiety -Stable -Continue Xanax #DVT prophylaxis -Lovenox 40 daily #Deconditioning -Will benefit from SNF after prolonged hospital stay, Resolved issues #Sepsis secondary to COVID-19 #Iatrogenic diarrhea #Hypomagnesemia #Hyponatremia #Protein calorie malnutrition Disposition Plan: Continue medical management Total Time Spent with Patient (Minutes): 45 minutes History Interval history: No acute events overnight. Hospitalist Physical - Constitutional Vitals: Temp Pulse Resp BP Pulse Ox 98.3 F 109 H 24 124/68 95 07/18/21 12:31 07/18/21 12:31 07/18/21 12:31 07/18/21 12:31 07/18/21 12:31 General appearance: Present: no acute distress, well-nourished, obese, disheveled - EENT Eyes: Present: PERRL, EOM intact ENT: hearing intact, clear oral mucosa, dentition normal - Neck Neck: Present: supple, normal ROM - Respiratory Respiratory effort: normal (Currently on high flow nasal cannula 30 L 70% FiO2 +100% nonrebreather) Respiratory: bilateral: diminished - Cardiovascular Rhythm: regular Heart Sounds: Present: S1 & S2 - Extremities Extremities: no ischemia, pulses intact, pulses symmetrical, No edema, normal temperature, normal color Peripheral Pulses: within normal limits - Abdominal General gastrointestinal: soft, non-tender, non-distended, normal bowel sounds - Integumentary Integumentary: Present: clear, warm, dry - Psychiatric Psychiatric: appropriate mood/affect, memory intact, cooperative, other (Limited insight) - Neurologic Neurologic: CNII-XII intact, moves all extremities - Allied Health Allied health notes reviewed: nursing Results - Labs CBC & Chem 7: 07/16/21 04:40 07/16/21 04:40 Labs: Laboratory Last Values WBC 8.0 K/mm3 (4.5-11.0) 07/16/21 04:40 RBC 4.08 M/mm3 (3.65-5.03) 07/16/21 04:40 Hgb 12.5 gm/dl (10.1-14.3) 07/16/21 04:40 Hct 39.2 % (30.3-42.9) 07/16/21 04:40 MCV 96 fl (79-97) 07/16/21 04:40 MCH 31 pg (28-32) 07/16/21 04:40 MCHC 32 % (30-34) 07/16/21 04:40 RDW 17.1 % (13.2-15.2) H 07/16/21 04:40 Plt Count 308 K/mm3 (140-440) 07/16/21 04:40 Lymph % (Auto) 15.6 % (13.4-35.0) 07/07/21 06:00 [place] % (Auto) 6.6 % (0.0-7.3) 07/07/21 06:00 Eos % (Auto) 1.9 % (0.0-4.3) 07/07/21 06:00 Baso % (Auto) 1.0 % (0.0-1.8) 07/07/21 06:00 Lymph # (Auto) 2.5 K/mm3 (1.2-5.4) 07/07/21 06:00 [place] # (Auto) 1.1 K/mm3 (0.0-0.8) H 07/07/21 06:00 Eos # (Auto) 0.3 K/mm3 (0.0-0.4) 07/07/21 06:00 Baso # (Auto) 0.2 K/mm3 (0.0-0.1) H 07/07/21 06:00 Add Manual Diff Complete 07/09/21 04:45 Total Counted 100 07/09/21 04:45 Seg Neutrophils % 74.9 % (40.0-70.0) H 07/07/21 06:00 Seg Neuts % (Manual) 82.0 % (40.0-70.0) H 07/09/21 04:45 Band Neutrophils % 1.0 % 05/12/21 04:05 Lymphocytes % (Manual) 13.0 % (13.4-35.0) L 07/09/21 04:45 Monocytes % (Manual) 3.0 % (0.0-7.3) 07/09/21 04:45 Eosinophils % (Manual) 2.0 % (0.0-4.3) 07/09/21 04:45 Nucleated RBC % Not Reportable 07/09/21 04:45 Seg Neutrophils # 12.1 K/mm3 (1.8-7.7) H 07/07/21 06:00 Seg Neutrophils # Man 7.8 K/mm3 (1.8-7.7) H 07/09/21 04:45 Band Neutrophils # 0.0 K/mm3 07/09/21 04:45 Lymphocytes # (Manual) 1.2 K/mm3 (1.2-5.4) 07/09/21 04:45 Abs React Lymphs (Man) 0.0 K/mm3 07/09/21 04:45 Monocytes # (Manual) 0.3 K/mm3 (0.0-0.8) 07/09/21 04:45 Eosinophils # (Manual) 0.2 K/mm3 (0.0-0.4) 07/09/21 04:45 Basophils # (Manual) 0.0 K/mm3 (0.0-0.1) 07/09/21 04:45 Metamyelocytes # 0.0 K/mm3 07/09/21 04:45 Myelocytes # 0.0 K/mm3 07/09/21 04:45 Promyelocytes # 0.0 K/mm3 07/09/21 04:45 Blast Cells # 0.0 K/mm3 07/09/21 04:45 WBC Morphology Not Reportable 07/09/21 04:45 Hypersegmented Neuts Not Reportable 07/09/21 04:45 Hyposegmented Neuts Not Reportable 07/09/21 04:45 Hypogranular Neuts Not Reportable 07/09/21 04:45 Smudge Cells Not Reportable 07/09/21 04:45 Toxic Granulation Not Reportable 07/09/21 04:45 Toxic Vacuolation Not Reportable 07/09/21 04:45 Dohle Bodies Not Reportable 07/09/21 04:45 Pelger-Huet Anomaly Not Reportable 07/09/21 04:45 Janelle Rods Not Reportable 07/09/21 04:45 Platelet Estimate Consistent w auto 07/09/21 04:45 Clumped Platelets Not Reportable 07/09/21 04:45 Plt Clumps, EDTA Not Reportable 07/09/21 04:45 Large Platelets Not Reportable 07/09/21 04:45 Giant Platelets Rare 07/09/21 04:45 Platelet Satelliting Not Reportable 07/09/21 04:45 Plt Morphology Comment Not Reportable 07/09/21 04:45 RBC Morphology Not Reportable 07/09/21 04:45 Dimorphic RBCs Not Reportable 07/09/21 04:45 Polychromasia Not Reportable 07/09/21 04:45 Hypochromasia Few 07/09/21 04:45 Poikilocytosis Not Reportable 07/09/21 04:45 Anisocytosis Not Reportable 07/09/21 04:45 Microcytosis Not Reportable 07/09/21 04:45 Macrocytosis Not Reportable 07/09/21 04:45 Spherocytes Not Reportable 07/09/21 04:45 Pappenheimer Bodies Not Reportable 07/09/21 04:45 Sickle Cells Not Reportable 07/09/21 04:45 Target Cells Not Reportable 07/09/21 04:45 Tear Drop Cells Not Reportable 07/09/21 04:45 Ovalocytes Not Reportable 07/09/21 04:45 Stomatocytes 1+ 07/09/21 04:45 Helmet Cells Not Reportable 07/09/21 04:45 Ahuja-Valatie Bodies Not Reportable 07/09/21 04:45 [place] Rings Not Reportable 07/09/21 04:45 [place] Cells Not Reportable 07/09/21 04:45 Bite Cells Not Reportable 07/09/21 04:45 Crenated Cell Not Reportable 07/09/21 04:45 Elliptocytes Not Reportable 07/09/21 04:45 Acanthocytes (Spur) Not Reportable 07/09/21 04:45 Rouleaux Not Reportable 07/09/21 04:45 Hemoglobin C Crystals Not Reportable 07/09/21 04:45 Schistocytes Not Reportable 07/09/21 04:45 Malaria parasites Not Reportable 07/09/21 04:45 Justin Bodies Not Reportable 07/09/21 04:45 Hem Pathologist Commnt No 07/09/21 04:45 D-Dimer 638.35 ng/mlDDU (0-234) H 07/09/21 04:45 ABG pH 7.403 pH Units (7.350-7.450) 05/14/21 02:23 POC ABG pCO2 45.4 mmHg (32.0-48.0) 05/03/21 04:49 ABG pCO2 50.2 mm Hg 05/14/21 02:23 POC ABG pO2 65.3 mmHg (83-108) L 05/03/21 04:49 ABG pO2 130.3 mm Hg (80.0-90.0) H 05/14/21 02:23 POC ABG HCO3 18.5 05/03/21 04:49 ABG HCO3 30.6 mmol/L (20.0-26.0) H 05/14/21 02:23 ABG O2 Saturation 98.5 % (95.0-99.0) 05/14/21 02:23 ABG O2 Content 17.9 (0.0-44) 05/14/21 02:23 POC ABG Base Excess -8.9 05/03/21 04:49 ABG Base Excess 4.9 mmol/L (-2.0-3.0) H 05/14/21 02:23 ABG Hemoglobin 13.0 gm/dl (12.0-16.0) 05/14/21 02:23 ABG Oxyhemoglobin 87.8 (94-98) L 05/03/21 04:49 ABG Carboxyhemoglobin 1.4 % (0.0-5.0) 05/14/21 02:23 ABG Methemoglobin 0.6 % (0.0-1.5) 05/14/21 02:23 ABG Sodium 133.0 mmol/L (136.0-145.0) L 05/03/21 04:49 ABG Potassium 3.9 mmol/L (3.40-4.50) 05/03/21 04:49 ABG Chloride 97.0 mmol/L (98-107) L 05/03/21 04:49 ABG Glucose 403 mg/dL (65-95) H 05/03/21 04:49 Oxyhemoglobin 96.5 % (95.0-99.0) 05/14/21 02:23 Carboxyhemoglobin 0.6 (0.5-1.5) 05/03/21 04:49 FiO2 90 % 05/14/21 02:23 FiO2 % 100.0 05/03/21 04:49 Sodium 140 mmol/L (137-145) 07/16/21 04:40 Potassium 3.4 mmol/L (3.6-5.0) L 07/16/21 04:40 Chloride 94.6 mmol/L (98-107) L 07/16/21 04:40 Carbon Dioxide 36 mmol/L (22-30) H 07/16/21 04:40 Anion Gap 13 mmol/L 07/16/21 04:40 BUN 12 mg/dL (7-17) 07/16/21 04:40 Creatinine < 0.2 mg/dL (0.6-1.2) L 07/16/21 04:40 Estimated GFR > 60 ml/min 07/16/21 04:40 BUN/Creatinine Ratio 60 % 07/16/21 04:40 Glucose 101 mg/dL (65-100) H 07/16/21 04:40 POC Glucose 139 mg/dL (70-105) H 07/18/21 12:29 Hemoglobin A1c 8.5 % (4-6) H 04/18/21 07:36 Calcium 9.1 mg/dL (8.4-10.2) 07/16/21 04:40 Phosphorus 3.60 mg/dL (2.5-4.5) 07/09/21 04:45 Magnesium 1.90 mg/dL (1.7-2.3) 07/09/21 04:45 Ferritin 155.9 ng/mL (10.0-200.0) 07/09/21 04:45 Total Bilirubin 0.30 mg/dL (0.1-1.2) 06/28/21 05:43 AST 19 units/L (5-40) 06/28/21 05:43 ALT 63 units/L (7-56) H 06/28/21 05:43 Alkaline Phosphatase 61 units/L (35-129) 06/28/21 05:43 Lactate Dehydrogenase 475 units/L (91-180) H 06/05/21 05:26 C-Reactive Protein 4.30 mg/dL (0.00-1.30) H 07/09/21 04:45 NT-Pro-B Natriuret Pep 59.45 pg/mL (0-450) 07/07/21 13:40 Total Protein 6.5 g/dL (6.3-8.2) 06/28/21 05:43 Albumin 3.3 g/dL (3.9-5) L 06/28/21 05:43 Albumin/Globulin Ratio 1.0 % 06/28/21 05:43 Triglycerides < 9 mg/dL (2-149) 05/03/21 04:30 Procalcitonin < 0.05 ng/mL (<0.15) 05/23/21 09:50 Arterial Blood Glucose 403 mg/dL (65-95) H 05/03/21 04:49 Arterial Blood Ionized Calcium 4.9 mg/dL (4.6-5.3) 05/03/21 04:49 Coronavirus (PCR) Positive (Negative) A 06/05/21 08:30 Amos/IV: Voiding Method Bedpan Active Medications - Current Medications Current Medications: Generic Name Dose Route Start Last Admin Trade Name Freq PRN Reason Stop Dose Admin Acetaminophen 650 mg 07/02/21 17:48 07/15/21 21:06 Acetaminophen 325 Mg Tab PO 650 mg Q4H PRN Administration Pain, Mild (1-3) Albuterol 2.5 mg 04/16/21 13:39 04/21/21 20:39 Albuterol 2.5 Mg/3 Ml Nebu IH 2.5 mg Q4HRT PRN Administration Shortness Of Breath Alprazolam 2 mg 07/04/21 12:00 07/18/21 09:36 Alprazolam 1 Mg Tab PO Not Given BID TUTU Ascorbic Acid 500 mg 04/24/21 10:00 07/18/21 09:36 Ascorbic Acid 500 Mg Tab PO 500 mg QDAY TUTU Administration Cholecalciferol 1,000 unit 04/17/21 10:00 07/18/21 09:36 Cholecalciferol (Vit D3) 1000 Unit (25 Mcg) Tab PO 1,000 unit QDAY TUTU Administration Enoxaparin Sodium 40 mg 05/19/21 22:00 07/17/21 21:40 Enoxaparin 40 Mg/0.4 Ml Inj SUB-Q 40 mg QDAY@2200 TUTU Administration Protocol Ibuprofen 600 mg 07/11/21 11:00 07/16/21 22:03 Ibuprofen 600 Mg Tab PO 600 mg Q6H PRN Administration Ear Pain Insulin Glargine 15 units 06/25/21 10:00 07/18/21 09:07 Insulin Glargine 100 Units/Ml SUB-Q 15 units DAILY TUTU Administration Insulin Human Lispro 0 unit 05/18/21 12:00 07/18/21 12:54 Insulin Lispro 100 Unit/Ml SUB-Q Not Given ACHS [facility] Protocol Ondansetron HCl 4 mg 04/16/21 14:00 05/30/21 10:07 Ondansetron 4 Mg/2 Ml Inj IV 4 mg Q8H PRN Administration Nausea And Vomiting Polyethylene Glycol 17 gm 07/16/21 20:00 Polyethylene Glycol 3350 17 Gm Powder PO QDAY PRN Constipation Sodium Chloride 10 ml 04/16/21 13:39 07/15/21 21:07 Sodium Chloride 0.9% 10 Ml Flush Syringe IV 10 ml PRN PRN Administration LINE FLUSH Zinc Sulfate 220 mg 04/16/21 22:00 07/18/21 09:36 Zinc Sulfate 220 Mg Cap PO 220 mg BID TUTU Administration Zolpidem Tartrate 10 mg 05/26/21 08:56 07/16/21 22:04 Zolpidem 5 Mg Tab PO 10 mg QHS PRN Administration Insomnia Nutrition/Malnutrition Assess - Dietary Evaluation Nutrition/Malnutrition Findings: Nutrition Notes Start: 04/23/21 07:41 Freq: Status: Active Protocol: Document 07/03/21 16:54 GB (Rec: 07/03/21 17:11 GB [id number]) Nutrition Notes Initial or Follow up Reassessment Current Diagnosis Respiratory Failure Other Pertinent Diagnosis oral thrush, COVID-19 pneu Current Diet consistent carbohydrate Labs/Tests 07/03: creatinine 0.3, K 3.2 Pertinent Medications Vit C, Vit D3, D5 (PRN), Prednisone, NaCl, Zn Sulfate Height 4 ft 11.84 in Weight 60.3 kg [place] Body Weight (kg) 45.09 BMI 26.1 Weight change and time frame 04/16/21: 74.843kg 05/17/21: 68.1kg 06/16/21: 60.3kg change of -14.54kg for -19.43% in 60 days. Per MD note: pt has been diuresed thorughout stay. Weight Status Overweight Subjective/Other Information MD notes 07/03: pt showing improvement, prednisone weaning down, possible weaning of O2. Last BM: 07/02 PO intake recorded at 50-100% Percent of energy/protein needs met: PO intake of meals meet 75% or greater of EEN Burn Absent Trauma Absent GI Symptoms None Food Allergy No Skin Integrity/Comment skin tear rt/lt buttocks Current % PO Good (75-100%) Minimum of two criteria No #3 Nutrition Diagnosis No nutrition diagnosis at this time Etiology respiratory failure As Evidenced by Signs and Symptoms recovering, good po, weight loss r/t diurese therapy #2 Nutrition Diagnosis Malnutrition Comments: Wt loss due to diurese for most of stay. PO intake is recorded at 75- 100% Etiology acute illness As Evidenced by Signs and Symptoms <50% EER in >5 days, >5% wt loss in 1 month Diagnosis Progress(for reassessment Resolved documentation) #1 Nutrition Diagnosis Inadequate oral intake Etiology ARF As Evidenced by Signs and Symptoms pt continues to meet 100%/93% of kcal/protein needs Diagnosis Progress(for reassessment Resolved documentation) Is patient on ventilator? No Is Patient Ambulatory and/or Out of Bed Yes REE-([facility]-ambulatory/OOB) [ 1491.022 [id number]] Kcal/Kg value to use for calculation 25 Approximate Energy Requirements Using 1508 kcal/Kg Calculation Used for Recommendations Kcal/kg Additional Notes Pro needs 1-1.2g/kg @ 60k -72g/day Fluid needs 1ml/kcal or per MD Nutrition Intervention Change Diet Order: continue Nutrition Support: n/a Add Supplement/Snack (indicate name/kcal n/a /protein ) Goal #1 PO intake of meals to be 75% or greater daily for LOS Goal #2 Weight to stabilize +/-3% current weight for LOS Follow-Up By: 08/07/21 Additional Comments f/u: po intake, weight - Attestation Statement I have reviewed and agreed w/ Malnutrition eval & tx plan: Yes
[2021-07-18] MEDS: ACETAMINOPHEN 325 MG TAB PO PRN ×2 (18:18→23:08)
[2021-07-18] MEDS: ENOXAPARIN 40 MG/0.4 ML INJ SUB-Q SCH (23:10)
--- NOTE | 2021-07-19 04:17 | Event Note ---
Date: 07/19/21 Patient developed respiratory distress. Patient is put on BiPAP. ABG is ordered and patient is transferred to the ICU. Critical care already on the case
[2021-07-19 07:22] LABS: Basophils # (Auto) 0.1 K/mm3 (0.0-0.1); Basophils % (Auto) 0.7 % (0.0-1.8); Eosinophils # (Auto) 0.6 K/mm3 (0.0-0.4); Eosinophils % (Auto) 4.1 % (0.0-4.3); Hematocrit 39.6 % (30.3-42.9); Hemoglobin 12.9 gm/dl (10.1-14.3); Lymphocytes # (Auto) 1.4 K/mm3 (1.2-5.4); Lymphocytes % (Auto) 9.6 % (13.4-35.0); Mean Corpuscular HGB Conc 33 % (30-34); Mean Corpuscular Volume 95 fl (79-97); Monocytes # (Auto) 0.8 K/mm3 (0.0-0.8); Monocytes % (Auto) 5.3 % (0.0-7.3); Platelet Count 305 K/mm3 (140-440); Red Blood Count 4.16 M/mm3 (3.65-5.03); Red Cell Distribution Width 17.3 % (13.2-15.2)
[2021-07-19 07:40] LABS: Blood Urea Nitrogen 7 mg/dL (7-17); Calcium 9.2 mg/dL (8.4-10.2); Hemolysis Index 24
[2021-07-19 07:41] LABS: BUN/Creatinine Ratio 35
[2021-07-19] MEDS: INSULIN LISPRO 100 UNIT/ML SUB-Q SCH ×4 (07:47→21:13)
[2021-07-19] MEDS: ZINC SULFATE 220 MG CAP PO SCH ×3 (10:30→23:03)
[2021-07-19] MEDS: ALPRAZolam 1 MG TAB PO SCH ×3 (10:30→23:03)
[2021-07-19] MEDS: ASCORBIC ACID 500 MG TAB PO SCH (10:31)
[2021-07-19] MEDS: CHOLECALCIFEROL (VIT D3) 1000 UNIT (25 mcg) TAB PO SCH (10:31)
[2021-07-19] MEDS: INSULIN GLARGINE 100 UNITS/ML SUB-Q SCH (10:32)
--- NOTE | 2021-07-19 12:23 | Progress Note ---
Assessment and Plan 50 y/o female with acute respiratory failure secondary to COVID19 pneumonia. 07/19/21: This was not related to stopping steroids as hemodynamically she is stable. Her sats is very good on 90%, I dropped to 85 and will continue to wean. She speaks no trinidadian and is very anxious. This adds to her work of breathing. COntinue to wean FiO2 as tolerated. Will give periodic breaks on bipap therapy. Guarded prognosis. 07/17/21: will stop steroids today. Hold on lasix given marginal blood pressure. Guarded prognosis. 07/15/21: Lasix today. Positive fluid balance all weekend based on I/O. Prone. Wean for sats >88% 07/12/21: Gave lasix 40mg IV again this am. Per charting yesterday was the first net negative day. Suggest PRN diuresis over the weekend as well. My partner is rounding but will likely see as needed. Continue to wean for sats >88% 07/11/21: Lasix 40mg IV this am. Attempt to prone if able. Attempt to ac hieve daily net negative state. Wean for sats >88%. Guarded prognosis. Will change prednisone to 5mg daily starting tomorrow. 07/09/21: Echo shows diastolic dysfunction. Will given an additional 40 of IV lasix today. Monitor daily and wean aggressively for sats >88% 07/08/21: Worsening CXR, Gave lasix yesterday and will give again today. Suggest checking echo, ekg. Prognosis is poor now with this change. We have seen COVID cause CAD with MS. 07/05/21: Will monitor over the weekend. Worst case scenario, may need to go back up to Prednisone 20 at least. Prone if able. Unsure why all of sudden oxygen requirement increasing. Will repeat CXR. 07/03/21: Down to 10 of prednisone. Will keep through the weekend and then drop to 5 on Thursday. PT/OT assessment if not done. Suggest maybe weaning flow now given FiO2 down to 50%. Prognosis is still guarded. 07/01/21: Will drop steroids to 10mg daily starting tomorrow. Wean for sats >88%. Prone. PT/OT should be seeing now that oxygen requirement is down more. 06/28/21: Continue to wean as tolerated. Will drop steroids down even further next week. Will see PRN over the weekend. 06/26/21: Will drop steroids down to 20 starting tomorrow. Prone. Continue to wean as tolerated. 06/24/21: Continue Pred, will drop to 20 daily tomorrow. Prone if able. Hopeful they can wean FiO2 more. May need to consider increasing flow for a while. 06/21/21: Continue pred at 40, will decrease likely Thursday/Thursday to 20 daily. Prone if able. Continue to wean as tolerated. Prognosis still remains guarded. 06/20/21: Will drop steroids down to 40 today. Proning. Continue to wean FiO2. 06/18/21: Wean Fio2 for sats >88%. Please encourage proning. Drop steroids down to 40 on . 06/14/21: Continue oral steroid therapy. Will do further weaning next week. Wean for sats >88% and prone as tolerated. Will see as needed over the weekend. 06/13/21: Will change to prednisone 60 daily starting tomorrow. Prone if able and wean for sats >88% 06/11/21: no new recs, will change to oral steroids tomorrow, continue to prone if able and wean for sats >88% 06/10/21: Will change to oral steroids on Thursday to begin prolonged taper 06/06/21: Continue to wean as tolerated, will drop steroids on tomorrow. 06/04/21: Clinically no change. Will drop steroids down the end of this week. 05/31/21: Clinically no change. Not eligible for LTACH. Encourage Proning. Will drop steroids down to 40 q8 05/29/21: No acute changes clinically. Still on HFNC but not really able to wean. Continue to encourage proning. Will drop steroids further on Thursday. 05/27/21: No improvement over the weekend but also no worsening. No other strategies to offer. Please continue to encourage patient to prone. I dropped steroids on yesterday. Will wean more later in the week. 05/24/21: No new recs again for today. Will see as needed over the weekend but follow chart peripherally for changes. 05/22/21: No new recs for today. Prognosis remains guarded. 05/21/21: Wean as tolerated. Prone if able. Guarded prognosis 05/20/21: COntinue current level of care. 05/17/21: Prone if possible. Wean FiO2 for sats >88%. Continue scheduled ativan. Prognosis is very very guarded. Unfunded so not a candidate for LTACH 05/16/21: Prone if willing. Wean FIO2 if patient will allow. Anxiety control. Prognosis still remains very guarded. 05/15/21: Not sure if MAR is accurate but may have only gotten one dose of sc heduled anixolytic therapy. Continue proning as tolerated, and wean FiO2 and flow for sats >88%. Prognosi remains very very guarded to poor. 05/14/21: Will discontinue the buspar and make the ativan scheduled but will do q6 as oppose to q4 and attempt to leave parameters for nursing when not to give. If anxiety could be controlled, feel that patient could be weaned further. She has no funding so she is not a candidate for LTACH. Prone if possible. Guarded prognosis. This is her day. 05/13/21: Ordered buspar 10 BID to start with to help with anxiety. Please continue to wean FiO2 as tolerated. Will remind nurse that there is PRN ativan available. Continue higher doses of steroids. Prone if able. 05/12/21: Patient may need something longer acting for anxiety. Per chart has not gotten any ativan in days. Would be ok with either buspar or low dose klonopin bid. COntinue higher doses of steroids as patient seems to be responding. Prone if possible. 05/11/21: Continue high doses of steroids and continue to wean for sats >88%. Please encourage proning. 05/10/21: Will continue this dose of steroid at least through the weekend and assess for improvement. will speak with RT about aggressive weaning. Full dose anticoagulation continues. Very very guarded to poor prognosis. 05/09/21: Going to consider increasing steroids to 125q8, maybe as early as tomorrow. continue full dose anticoagulation. 05/08/21: Continue anticoagulation and steroids. Prone if possible. Anxiety control. No objection to CTA if this can happen. Very very guarded prognosis. 05/07/21: Spoke with IMS, not opposed to full dose anticoagulation. If patient goes back on NRB HFNC combo may need to consider restarting PPN again. Encourage proning. Guarded prognosis. 05/06/21: Continue to wean FiO2 and flow for sats >88%. Tolerating diet now so will stop PPN. Continue anxiety control. Continue IV steroids. Would not object to transfer to COVID floor if bed available. Not sure why she was titrated back up to 100% from 85 as all sats documented in the RT's notes were acceptable. Same for under vital signs as well. 05/03/21: Set back last night from yesterday. Continue bipap therapy for now and attempt HFNC maybe later this afternoon. Continue to use PRN ativan but may need to schedule as she likely took off mask from anxiety. Continue IV steroids. Hold on transfer to [facility] Floor. 05/02/21: Continue to wean FiO2 as tolerated for sats >88%. Will continue bipap at night. Patient has no funding so not a candidate for LTACH. Given that she has been stable and not requiring the combo of HFNC and NRB, will consider moving to [facility] floor. 05/01/21: Continue to wean FiO2 for sats >88%. A sat of 90 is more than acceptable and oxygen should not be increased for this unless patient desats and remains at a sat lower than 88. Bipap at night to give some form of relief and HFNC during the day. Currently on just this alone which is improvement. Ok with daily diuresis but must monitor renal function and BP closely. She was over diuresed last week and we ended up giving fluid back. Prognosis remains guarded. 04/30/21: Will start CLinimix today for nutritional support, without electrolytes. Check labs in am. Prone if able. Continue precedx for anxiety. Very very guarded prognosis. Attempting our best to not intubate. 04/29/21: Continue precedex. Continue IV solumedrol. Prone if able. Guarded prognosis. 04/28/21: Continue Precedex. Picc team attempting to place line now. Stable on Bipap. Ordered steroids IV solumedrol to start today. Prognosis remains guarded, still at very high risk for intubation. 04/27/21: Hypotension improving/improved. Hold on any further lasix dosing. Continue precedex to help with anxeity. later today please attempt HFNC with NRB if needed. Attempt to feed if possible. Steroids end today, please order solumedrol 40q8 to start tomorrow (04/28/21). guarded prognosis. 04/26/21: Hypotension today, most likely from precedex use and diuresis that I did the last several days. Will bolus again today. Consider midodrine if BP does not respond. 04/25/21: Lasix again today. Keep PRN ativan for now. Hold on precedex for now. Guarded prognosis. Labs ordered for tomorrow. 04/24/21: Lasix today. Will also start patient on low dose PRN ativan. If this does not help will then try precedex. Guarded prognosis. 04/23/21: Prone as tolerated. No lasix today. Continue decadron. Guarded pro gnosis. High risk for intubation and high mortality with intubation. 04/19/21: Prone as tolerated during the day and sleep prone at night. Continue IV remdesivir and steroids. Did get actemra. Guarded prognosis. 1. Daily net negative state 2. Prone if possible 3. IV remdesivir. 4. Should be a candidate for Actemra 5. IV steroids 6. Guarded Prognosis Subjective Date of service: 07/19/21 Principal diagnosis: Covid-19 Interval history: Patient transferred to [facility] last night by overnight IMS physician. Patient awake and alert. On bipap sat is 100% on 90%. Objective Vital Signs - 12hr 07/19/21 07/19/21 07/19/21 02:42 04:20 05:25 Temperature 97.6 F Pulse Rate 89 Respiratory 44 H Rate O2 Sat by Pulse 95 94 Oximetry 07/19/21 07/19/21 07/19/21 07:33 08:00 08:07 Temperature 98.9 F Pulse Rate 108 H Respiratory 20 35 H Rate O2 Sat by Pulse 95 100 Oximetry 07/19/21 12:04 Temperature 97.5 F L Pulse Rate Respiratory Rate O2 Sat by Pulse Oximetry Constitutional: no acute distress, alert Eyes: non-icteric ENT: oropharynx moist Neck: supple Effort: normal Ascultation: Bilateral: diminished breath sounds Cardiovascular: regular rate and rhythm Gastrointestinal: normoactive bowel sounds, soft, non-tender, non-distended Integumentary: normal Extremities: no cyanosis, no edema, pink and warm Neurologic: normal mental status, non-focal exam, pupils equal and round, CN II- XII normal Psychiatric: mood appropriate, affect normal CBC and BMP: 07/19/21 06:55 07/19/21 06:55 ABG, PT/INR, D-dimer: ABG ABG pH 7.369 (7.320-7.450) 07/19/21 07:54 POC ABG pCO2 67.9 mmHg (32.0-48.0) H 07/19/21 07:54 ABG pCO2 50.2 mm Hg 05/14/21 02:23 POC ABG pO2 131.0 mmHg (83-108) H 07/19/21 07:54 ABG pO2 130.3 mm Hg (80.0-90.0) H 05/14/21 02:23 POC ABG HCO3 38.3 07/19/21 07:54 ABG O2 Saturation 99.0 (0-100) 07/19/21 07:54 PT/INR, D-dimer D-Dimer 638.35 ng/mlDDU (0-234) H 07/09/21 04:45 Abnormal lab findings: Abnormal Labs 04/16/21 04/16/21 04/16/21 11:42 11:42 11:42 WBC MCH MCHC RDW 16.1 H Lymph % (Auto) 7.8 L Lymph # (Auto) 0.8 L [place] # (Auto) Eos # (Auto) Baso # (Auto) Seg Neutrophils % 87.7 H Seg Neuts % (Manual) Lymphocytes % (Manual) Seg Neutrophils # 8.5 H Seg Neutrophils # Man Lymphocytes # (Manual) D-Dimer 338.70 H ABG pH POC ABG pCO2 POC ABG pO2 ABG pO2 ABG HCO3 ABG O2 Saturation ABG Base Excess ABG Oxyhemoglobin ABG Sodium ABG Chloride ABG Glucose Oxyhemoglobin Carboxyhemoglobin Sodium Potassium Chloride Carbon Dioxide BUN Creatinine Glucose 194 H POC Glucose Hemoglobin A1c Ferritin AST ALT Alkaline Phosphatase Lactate Dehydrogenase C-Reactive Protein Total Protein 8.4 H Albumin 3.8 L Arterial Blood Glucose Coronavirus (PCR) 04/16/21 04/16/21 04/17/21 11:42 11:42 03:50 WBC MCH MCHC RDW 16.0 H Lymph % (Auto) 7.7 L Lymph # (Auto) 0.6 L [place] # (Auto) Eos # (Auto) Baso # (Auto) Seg Neutrophils % 89.8 H Seg Neuts % (Manual) Lymphocytes % (Manual) Seg Neutrophils # Seg Neutrophils # Man Lymphocytes # (Manual) D-Dimer ABG pH POC ABG pCO2 POC ABG pO2 ABG pO2 ABG HCO3 ABG O2 Saturation ABG Base Excess ABG Oxyhemoglobin ABG Sodium ABG Chloride ABG Glucose Oxyhemoglobin Carboxyhemoglobin Sodium Potassium Chloride Carbon Dioxide BUN Creatinine Glucose 195 H POC Glucose Hemoglobin A1c Ferritin 254.3 H AST ALT Alkaline Phosphatase Lactate Dehydrogenase 359 H C-Reactive Protein 15.20 H Total Protein Albumin Arterial Blood Glucose Coronavirus (PCR) 04/17/21 04/17/21 04/17/21 03:50 08:26 08:26 WBC MCH MCHC RDW Lymph % (Auto) Lymph # (Auto) [place] # (Auto) Eos # (Auto) Baso # (Auto) Seg Neutrophils % Seg Neuts % (Manual) Lymphocytes % (Manual) Seg Neutrophils # Seg Neutrophils # Man Lymphocytes # (Manual) D-Dimer 262.48 H ABG pH POC ABG pCO2 POC ABG pO2 ABG pO2 ABG HCO3 ABG O2 Saturation ABG Base Excess ABG Oxyhemoglobin ABG Sodium ABG Chloride ABG Glucose Oxyhemoglobin Carboxyhemoglobin Sodium Potassium Chloride Carbon Dioxide BUN 20 H Creatinine 0.5 L Glucose 249 H 225 H POC Glucose Hemoglobin A1c Ferritin AST ALT Alkaline Phosphatase Lactate Dehydrogenase 338 H C-Reactive Protein 17.20 H Total Protein Albumin 3.2 L Arterial Blood Glucose Coronavirus (PCR) 04/17/21 04/17/21 04/17/21 08:26 15:04 Unknown WBC MCH MCHC RDW Lymph % (Auto) Lymph # (Auto) [place] # (Auto) Eos # (Auto) Baso # (Auto) Seg Neutrophils % Seg Neuts % (Manual) Lymphocytes % (Manual) Seg Neutrophils # Seg Neutrophils # Man Lymphocytes # (Manual) D-Dimer ABG pH POC ABG pCO2 POC ABG pO2 ABG pO2 ABG HCO3 ABG O2 Saturation ABG Base Excess ABG Oxyhemoglobin ABG Sodium ABG Chloride ABG Glucose Oxyhemoglobin Carboxyhemoglobin Sodium Potassium Chloride Carbon Dioxide BUN 20 H Creatinine 0.5 L Glucose 246 H POC Glucose Hemoglobin A1c Ferritin 392.0 H AST ALT Alkaline Phosphatase Lactate Dehydrogenase C-Reactive Protein Total Protein 8.3 H Albumin 3.1 L Arterial Blood Glucose Coronavirus (PCR) Positive A 04/18/21 04/18/21 04/18/21 05:06 05:06 07:36 WBC 11.6 H MCH MCHC RDW 16.1 H Lymph % (Auto) Lymph # (Auto) [place] # (Auto) Eos # (Auto) Baso # (Auto) Seg Neutrophils % Seg Neuts % (Manual) Lymphocytes % (Manual) Seg Neutrophils # Seg Neutrophils # Man Lymphocytes # (Manual) D-Dimer ABG pH POC ABG pCO2 POC ABG pO2 ABG pO2 ABG HCO3 ABG O2 Saturation ABG Base Excess ABG Oxyhemoglobin ABG Sodium ABG Chloride ABG Glucose Oxyhemoglobin Carboxyhemoglobin Sodium Potassium 5.2 H Chloride Carbon Dioxide BUN 22 H Creatinine 0.5 L Glucose 315 H POC Glucose Hemoglobin A1c 8.5 H Ferritin AST ALT Alkaline Phosphatase Lactate Dehydrogenase C-Reactive Protein Total Protein Albumin 3.3 L Arterial Blood Glucose Coronavirus (PCR) 04/18/21 04/18/21 04/18/21 11:59 16:43 23:24 WBC MCH MCHC RDW Lymph % (Auto) Lymph # (Auto) [place] # (Auto) Eos # (Auto) Baso # (Auto) Seg Neutrophils % Seg Neuts % (Manual) Lymphocytes % (Manual) Seg Neutrophils # Seg Neutrophils # Man Lymphocytes # (Manual) D-Dimer ABG pH POC ABG pCO2 POC ABG pO2 ABG pO2 ABG HCO3 ABG O2 Saturation ABG Base Excess ABG Oxyhemoglobin ABG Sodium ABG Chloride ABG Glucose Oxyhemoglobin Carboxyhemoglobin Sodium Potassium Chloride Carbon Dioxide BUN Creatinine Glucose POC Glucose 284 H 273 H 290 H Hemoglobin A1c Ferritin AST ALT Alkaline Phosphatase Lactate Dehydrogenase C-Reactive Protein Total Protein Albumin Arterial Blood Glucose Coronavirus (PCR) 04/19/21 04/19/21 04/19/21 04:19 04:19 08:10 WBC MCH MCHC RDW 15.7 H Lymph % (Auto) Lymph # (Auto) [place] # (Auto) Eos # (Auto) Baso # (Auto) Seg Neutrophils % Seg Neuts % (Manual) Lymphocytes % (Manual) Seg Neutrophils # Seg Neutrophils # Man Lymphocytes # (Manual) D-Dimer ABG pH POC ABG pCO2 POC ABG pO2 ABG pO2 ABG HCO3 ABG O2 Saturation ABG Base Excess ABG Oxyhemoglobin ABG Sodium ABG Chloride ABG Glucose Oxyhemoglobin Carboxyhemoglobin Sodium Potassium Chloride Carbon Dioxide BUN 27 H Creatinine 0.4 L Glucose 184 H POC Glucose 194 H Hemoglobin A1c Ferritin AST ALT Alkaline Phosphatase Lactate Dehydrogenase C-Reactive Protein Total Protein Albumin 3.1 L Arterial Blood Glucose Coronavirus (PCR) 04/19/21 04/19/21 04/19/21 11:38 16:25 22:04 WBC MCH MCHC RDW Lymph % (Auto) Lymph # (Auto) [place] # (Auto) Eos # (Auto) Baso # (Auto) Seg Neutrophils % Seg Neuts % (Manual) Lymphocytes % (Manual) Seg Neutrophils # Seg Neutrophils # Man Lymphocytes # (Manual) D-Dimer ABG pH POC ABG pCO2 POC ABG pO2 ABG pO2 ABG HCO3 ABG O2 Saturation ABG Base Excess ABG Oxyhemoglobin ABG Sodium ABG Chloride ABG Glucose Oxyhemoglobin Carboxyhemoglobin Sodium Potassium Chloride Carbon Dioxide BUN Creatinine Glucose POC Glucose 224 H 297 H 251 H Hemoglobin A1c Ferritin AST ALT Alkaline Phosphatase Lactate Dehydrogenase C-Reactive Protein Total Protein Albumin Arterial Blood Glucose Coronavirus (PCR) 04/20/21 04/20/21 04/20/21 05:28 08:43 16:21 WBC MCH MCHC RDW Lymph % (Auto) Lymph # (Auto) [place] # (Auto) Eos # (Auto) Baso # (Auto) Seg Neutrophils % Seg Neuts % (Manual) Lymphocytes % (Manual) Seg Neutrophils # Seg Neutrophils # Man Lymphocytes # (Manual) D-Dimer ABG pH POC ABG pCO2 POC ABG pO2 ABG pO2 ABG HCO3 ABG O2 Saturation ABG Base Excess ABG Oxyhemoglobin ABG Sodium ABG Chloride ABG Glucose Oxyhemoglobin Carboxyhemoglobin Sodium Potassium Chloride Carbon Dioxide BUN 27 H Creatinine Glucose 192 H POC Glucose 173 H 253 H Hemoglobin A1c Ferritin AST ALT Alkaline Phosphatase Lactate Dehydrogenase C-Reactive Protein Total Protein Albumin 3.0 L Arterial Blood Glucose Coronavirus (PCR) 04/21/21 04/21/21 04/21/21 07:58 12:05 16:08 WBC MCH MCHC RDW Lymph % (Auto) Lymph # (Auto) [place] # (Auto) Eos # (Auto) Baso # (Auto) Seg Neutrophils % Seg Neuts % (Manual) Lymphocytes % (Manual) Seg Neutrophils # Seg Neutrophils # Man Lymphocytes # (Manual) D-Dimer ABG pH POC ABG pCO2 POC ABG pO2 ABG pO2 ABG HCO3 ABG O2 Saturation ABG Base Excess ABG Oxyhemoglobin ABG Sodium ABG Chloride ABG Glucose Oxyhemoglobin Carboxyhemoglobin Sodium Potassium Chloride Carbon Dioxide BUN Creatinine Glucose POC Glucose 140 H 252 H 214 H Hemoglobin A1c Ferritin AST ALT Alkaline Phosphatase Lactate Dehydrogenase C-Reactive Protein Total Protein Albumin Arterial Blood Glucose Coronavirus (PCR) 04/21/21 04/22/21 04/22/21 21:42 08:37 12:01 WBC MCH MCHC RDW Lymph % (Auto) Lymph # (Auto) [place] # (Auto) Eos # (Auto) Baso # (Auto) Seg Neutrophils % Seg Neuts % (Manual) Lymphocytes % (Manual) Seg Neutrophils # Seg Neutrophils # Man Lymphocytes # (Manual) D-Dimer ABG pH 7.457 H POC ABG pCO2 POC ABG pO2 49.4 L ABG pO2 ABG HCO3 ABG O2 Saturation ABG Base Excess ABG Oxyhemoglobin 85.6 L ABG Sodium ABG Chloride ABG Glucose 121 H Oxyhemoglobin Carboxyhemoglobin 0.3 L Sodium Potassium Chloride Carbon Dioxide BUN Creatinine Glucose POC Glucose 162 H 227 H Hemoglobin A1c Ferritin AST ALT Alkaline Phosphatase Lactate Dehydrogenase C-Reactive Protein Total Protein Albumin Arterial Blood Glucose 121 H Coronavirus (PCR) 04/22/21 04/22/21 04/23/21 16:26 22:23 04:52 WBC MCH MCHC RDW 15.7 H Lymph % (Auto) Lymph # (Auto) [place] # (Auto) Eos # (Auto) Baso # (Auto) Seg Neutrophils % Seg Neuts % (Manual) Lymphocytes % (Manual) Seg Neutrophils # Seg Neutrophils # Man Lymphocytes # (Manual) D-Dimer ABG pH POC ABG pCO2 POC ABG pO2 ABG pO2 ABG HCO3 ABG O2 Saturation ABG Base Excess ABG Oxyhemoglobin ABG Sodium ABG Chloride ABG Glucose Oxyhemoglobin Carboxyhemoglobin Sodium Potassium Chloride Carbon Dioxide BUN Creatinine Glucose POC Glucose 200 H 136 H Hemoglobin A1c Ferritin AST ALT Alkaline Phosphatase Lactate Dehydrogenase C-Reactive Protein Total Protein Albumin Arterial Blood Glucose Coronavirus (PCR) 04/23/21 04/23/21 04/23/21 04:52 12:06 17:41 WBC MCH MCHC RDW Lymph % (Auto) Lymph # (Auto) [place] # (Auto) Eos # (Auto) Baso # (Auto) Seg Neutrophils % Seg Neuts % (Manual) Lymphocytes % (Manual) Seg Neutrophils # Seg Neutrophils # Man Lymphocytes # (Manual) D-Dimer ABG pH POC ABG pCO2 POC ABG pO2 ABG pO2 ABG HCO3 ABG O2 Saturation ABG Base Excess ABG Oxyhemoglobin ABG Sodium ABG Chloride ABG Glucose Oxyhemoglobin Carboxyhemoglobin Sodium 136 L Potassium Chloride 97.7 L Carbon Dioxide BUN 23 H Creatinine Glucose 101 H POC Glucose 202 H 169 H Hemoglobin A1c Ferritin AST 46 H ALT Alkaline Phosphatase Lactate Dehydrogenase C-Reactive Protein Total Protein Albumin 3.3 L Arterial Blood Glucose Coronavirus (PCR) 04/23/21 04/24/21 04/24/21 23:08 05:17 08:38 WBC MCH MCHC RDW Lymph % (Auto) Lymph # (Auto) [place] # (Auto) Eos # (Auto) Baso # (Auto) Seg Neutrophils % Seg Neuts % (Manual) Lymphocytes % (Manual) Seg Neutrophils # Seg Neutrophils # Man Lymphocytes # (Manual) D-Dimer ABG pH POC ABG pCO2 POC ABG pO2 ABG pO2 ABG HCO3 ABG O2 Saturation ABG Base Excess ABG Oxyhemoglobin ABG Sodium ABG Chloride ABG Glucose Oxyhemoglobin Carboxyhemoglobin Sodium Potassium Chloride Carbon Dioxide BUN Creatinine Glucose POC Glucose 111 H 108 H 126 H Hemoglobin A1c Ferritin AST ALT Alkaline Phosphatase Lactate Dehydrogenase C-Reactive Protein Total Protein Albumin Arterial Blood Glucose Coronavirus (PCR) 04/24/21 04/24/21 04/24/21 11:54 17:57 21:23 WBC MCH MCHC RDW Lymph % (Auto) Lymph # (Auto) [place] # (Auto) Eos # (Auto) Baso # (Auto) Seg Neutrophils % Seg Neuts % (Manual) Lymphocytes % (Manual) Seg Neutrophils # Seg Neutrophils # Man Lymphocytes # (Manual) D-Dimer ABG pH POC ABG pCO2 POC ABG pO2 ABG pO2 ABG HCO3 ABG O2 Saturation ABG Base Excess ABG Oxyhemoglobin ABG Sodium ABG Chloride ABG Glucose Oxyhemoglobin Carboxyhemoglobin Sodium Potassium Chloride Carbon Dioxide BUN Creatinine Glucose POC Glucose 147 H 177 H 138 H Hemoglobin A1c Ferritin AST ALT Alkaline Phosphatase Lactate Dehydrogenase C-Reactive Protein Total Protein Albumin Arterial Blood Glucose Coronavirus (PCR) 04/25/21 04/25/21 04/25/21 07:06 11:23 15:43 WBC MCH MCHC RDW Lymph % (Auto) Lymph # (Auto) [place] # (Auto) Eos # (Auto) Baso # (Auto) Seg Neutrophils % Seg Neuts % (Manual) Lymphocytes % (Manual) Seg Neutrophils # Seg Neutrophils # Man Lymphocytes # (Manual) D-Dimer ABG pH POC ABG pCO2 POC ABG pO2 ABG pO2 ABG HCO3 ABG O2 Saturation ABG Base Excess ABG Oxyhemoglobin ABG Sodium ABG Chloride ABG Glucose Oxyhemoglobin Carboxyhemoglobin Sodium Potassium Chloride Carbon Dioxide BUN Creatinine Glucose POC Glucose 147 H 169 H 227 H Hemoglobin A1c Ferritin AST ALT Alkaline Phosphatase Lactate Dehydrogenase C-Reactive Protein Total Protein Albumin Arterial Blood Glucose Coronavirus (PCR) 04/25/21 04/26/21 04/26/21 21:22 02:45 05:15 WBC MCH MCHC RDW Lymph % (Auto) Lymph # (Auto) [place] # (Auto) Eos # (Auto) Baso # (Auto) Seg Neutrophils % Seg Neuts % (Manual) Lymphocytes % (Manual) Seg Neutrophils # Seg Neutrophils # Man Lymphocytes # (Manual) D-Dimer ABG pH POC ABG pCO2 POC ABG pO2 70.7 L ABG pO2 ABG HCO3 ABG O2 Saturation ABG Base Excess ABG Oxyhemoglobin 93.0 L ABG Sodium 132.7 L ABG Chloride ABG Glucose 115 H Oxyhemoglobin Carboxyhemoglobin Sodium Potassium Chloride 95.8 L Carbon Dioxide 32 H BUN 20 H Creatinine Glucose 102 H POC Glucose 196 H Hemoglobin A1c Ferritin AST ALT Alkaline Phosphatase Lactate Dehydrogenase C-Reactive Protein Total Protein Albumin Arterial Blood Glucose 115 H Coronavirus (PCR) 04/26/21 04/26/21 04/26/21 11:49 16:09 21:07 WBC MCH MCHC RDW Lymph % (Auto) Lymph # (Auto) [place] # (Auto) Eos # (Auto) Baso # (Auto) Seg Neutrophils % Seg Neuts % (Manual) Lymphocytes % (Manual) Seg Neutrophils # Seg Neutrophils # Man Lymphocytes # (Manual) D-Dimer ABG pH POC ABG pCO2 POC ABG pO2 ABG pO2 ABG HCO3 ABG O2 Saturation ABG Base Excess ABG Oxyhemoglobin ABG Sodium ABG Chloride ABG Glucose Oxyhemoglobin Carboxyhemoglobin Sodium Potassium Chloride Carbon Dioxide BUN Creatinine Glucose POC Glucose 114 H 188 H 136 H Hemoglobin A1c Ferritin AST ALT Alkaline Phosphatase Lactate Dehydrogenase C-Reactive Protein Total Protein Albumin Arterial Blood Glucose Coronavirus (PCR) 04/27/21 04/27/21 04/28/21 17:34 22:12 08:26 WBC MCH MCHC RDW Lymph % (Auto) Lymph # (Auto) [place] # (Auto) Eos # (Auto) Baso # (Auto) Seg Neutrophils % Seg Neuts % (Manual) Lymphocytes % (Manual) Seg Neutrophils # Seg Neutrophils # Man Lymphocytes # (Manual) D-Dimer ABG pH POC ABG pCO2 POC ABG pO2 ABG pO2 ABG HCO3 ABG O2 Saturation ABG Base Excess ABG Oxyhemoglobin ABG Sodium ABG Chloride ABG Glucose Oxyhemoglobin Carboxyhemoglobin Sodium Potassium Chloride Carbon Dioxide BUN Creatinine Glucose POC Glucose 128 H 159 H 69 L Hemoglobin A1c Ferritin AST ALT Alkaline Phosphatase Lactate Dehydrogenase C-Reactive Protein Total Protein Albumin Arterial Blood Glucose Coronavirus (PCR) 04/28/21 04/28/21 04/29/21 12:22 21:11 06:05 WBC MCH MCHC RDW Lymph % (Auto) Lymph # (Auto) [place] # (Auto) Eos # (Auto) Baso # (Auto) Seg Neutrophils % Seg Neuts % (Manual) Lymphocytes % (Manual) Seg Neutrophils # Seg Neutrophils # Man Lymphocytes # (Manual) D-Dimer ABG pH POC ABG pCO2 POC ABG pO2 ABG pO2 ABG HCO3 ABG O2 Saturation ABG Base Excess ABG Oxyhemoglobin ABG Sodium ABG Chloride ABG Glucose Oxyhemoglobin Carboxyhemoglobin Sodium 132 L Potassium Chloride 94.4 L Carbon Dioxide BUN Creatinine 0.2 L D Glucose 140 H POC Glucose 141 H 171 H Hemoglobin A1c Ferritin AST ALT Alkaline Phosphatase Lactate Dehydrogenase C-Reactive Protein Total Protein Albumin Arterial Blood Glucose Coronavirus (PCR) 04/29/21 04/29/21 04/29/21 06:05 07:24 11:36 WBC MCH MCHC 35 H RDW 15.9 H Lymph % (Auto) Lymph # (Auto) [place] # (Auto) Eos # (Auto) Baso # (Auto) Seg Neutrophils % Seg Neuts % (Manual) Lymphocytes % (Manual) Seg Neutrophils # Seg Neutrophils # Man Lymphocytes # (Manual) D-Dimer ABG pH POC ABG pCO2 POC ABG pO2 ABG pO2 ABG HCO3 ABG O2 Saturation ABG Base Excess ABG Oxyhemoglobin ABG Sodium ABG Chloride ABG Glucose Oxyhemoglobin Carboxyhemoglobin Sodium Potassium Chloride Carbon Dioxide BUN Creatinine Glucose POC Glucose 141 H 220 H Hemoglobin A1c Ferritin AST ALT Alkaline Phosphatase Lactate Dehydrogenase C-Reactive Protein Total Protein Albumin Arterial Blood Glucose Coronavirus (PCR) 04/29/21 04/29/21 04/29/21 14:23 15:30 17:06 WBC MCH MCHC RDW Lymph % (Auto) Lymph # (Auto) [place] # (Auto) Eos # (Auto) Baso # (Auto) Seg Neutrophils % Seg Neuts % (Manual) Lymphocytes % (Manual) Seg Neutrophils # Seg Neutrophils # Man Lymphocytes # (Manual) D-Dimer ABG pH POC ABG pCO2 POC ABG pO2 ABG pO2 52.6 L ABG HCO3 ABG O2 Saturation 86.4 L ABG Base Excess ABG Oxyhemoglobin ABG Sodium ABG Chloride ABG Glucose Oxyhemoglobin 84.6 L Carboxyhemoglobin Sodium Potassium Chloride Carbon Dioxide BUN Creatinine Glucose POC Glucose 173 H 158 H Hemoglobin A1c Ferritin AST ALT Alkaline Phosphatase Lactate Dehydrogenase C-Reactive Protein Total Protein Albumin Arterial Blood Glucose Coronavirus (PCR) 04/29/21 04/30/21 04/30/21 21:27 07:16 08:00 WBC MCH MCHC RDW 16.1 H Lymph % (Auto) Lymph # (Auto) [place] # (Auto) Eos # (Auto) Baso # (Auto) Seg Neutrophils % Seg Neuts % (Manual) Lymphocytes % (Manual) Seg Neutrophils # Seg Neutrophils # Man Lymphocytes # (Manual) D-Dimer ABG pH POC ABG pCO2 POC ABG pO2 ABG pO2 ABG HCO3 ABG O2 Saturation ABG Base Excess ABG Oxyhemoglobin ABG Sodium ABG Chloride ABG Glucose Oxyhemoglobin Carboxyhemoglobin Sodium Potassium Chloride Carbon Dioxide BUN Creatinine Glucose POC Glucose 244 H 175 H Hemoglobin A1c Ferritin AST ALT Alkaline Phosphatase Lactate Dehydrogenase C-Reactive Protein Total Protein Albumin Arterial Blood Glucose Coronavirus (PCR) 04/30/21 04/30/21 04/30/21 08:00 08:00 11:03 WBC MCH MCHC RDW Lymph % (Auto) Lymph # (Auto) [place] # (Auto) Eos # (Auto) Baso # (Auto) Seg Neutrophils % Seg Neuts % (Manual) Lymphocytes % (Manual) Seg Neutrophils # Seg Neutrophils # Man Lymphocytes # (Manual) D-Dimer 1796.87 H ABG pH POC ABG pCO2 POC ABG pO2 ABG pO2 ABG HCO3 ABG O2 Saturation ABG Base Excess ABG Oxyhemoglobin ABG Sodium ABG Chloride ABG Glucose Oxyhemoglobin Carboxyhemoglobin Sodium 135 L Potassium Chloride 96.3 L Carbon Dioxide BUN Creatinine 0.2 L Glucose 153 H POC Glucose 183 H Hemoglobin A1c Ferritin AST 41 H ALT 76 H Alkaline Phosphatase 160 H Lactate Dehydrogenase 522 H C-Reactive Protein Total Protein 6.1 L Albumin 3.1 L Arterial Blood Glucose Coronavirus (PCR) 04/30/21 04/30/21 05/01/21 17:04 22:17 05:39 WBC MCH MCHC RDW Lymph % (Auto) Lymph # (Auto) [place] # (Auto) Eos # (Auto) Baso # (Auto) Seg Neutrophils % Seg Neuts % (Manual) Lymphocytes % (Manual) Seg Neutrophils # Seg Neutrophils # Man Lymphocytes # (Manual) D-Dimer ABG pH POC ABG pCO2 POC ABG pO2 ABG pO2 ABG HCO3 ABG O2 Saturation ABG Base Excess ABG Oxyhemoglobin ABG Sodium ABG Chloride ABG Glucose Oxyhemoglobin Carboxyhemoglobin Sodium 133 L Potassium Chloride 92.1 L Carbon Dioxide BUN 24 H Creatinine 0.4 L D Glucose 269 H POC Glucose 167 H 208 H Hemoglobin A1c Ferritin AST ALT 66 H Alkaline Phosphatase 142 H Lactate Dehydrogenase C-Reactive Protein Total Protein Albumin 3.2 L Arterial Blood Glucose Coronavirus (PCR) 05/01/21 05/01/21 05/01/21 05:39 05:39 07:45 WBC MCH MCHC RDW 16.0 H Lymph % (Auto) Lymph # (Auto) [place] # (Auto) Eos # (Auto) Baso # (Auto) Seg Neutrophils % Seg Neuts % (Manual) Lymphocytes % (Manual) Seg Neutrophils # Seg Neutrophils # Man Lymphocytes # (Manual) D-Dimer 3984.95 H ABG pH POC ABG pCO2 POC ABG pO2 ABG pO2 ABG HCO3 ABG O2 Saturation ABG Base Excess ABG Oxyhemoglobin ABG Sodium ABG Chloride ABG Glucose Oxyhemoglobin Carboxyhemoglobin Sodium Potassium Chloride Carbon Dioxide BUN Creatinine Glucose POC Glucose 229 H Hemoglobin A1c Ferritin AST ALT Alkaline Phosphatase Lactate Dehydrogenase C-Reactive Protein Total Protein Albumin Arterial Blood Glucose Coronavirus (PCR) 05/01/21 05/01/21 05/01/21 12:10 15:46 21:06 WBC MCH MCHC RDW Lymph % (Auto) Lymph # (Auto) [place] # (Auto) Eos # (Auto) Baso # (Auto) Seg Neutrophils % Seg Neuts % (Manual) Lymphocytes % (Manual) Seg Neutrophils # Seg Neutrophils # Man Lymphocytes # (Manual) D-Dimer ABG pH POC ABG pCO2 POC ABG pO2 ABG pO2 ABG HCO3 ABG O2 Saturation ABG Base Excess ABG Oxyhemoglobin ABG Sodium ABG Chloride ABG Glucose Oxyhemoglobin Carboxyhemoglobin Sodium Potassium Chloride Carbon Dioxide BUN Creatinine Glucose POC Glucose 296 H 279 H 232 H Hemoglobin A1c Ferritin AST ALT Alkaline Phosphatase Lactate Dehydrogenase C-Reactive Protein Total Protein Albumin Arterial Blood Glucose Coronavirus (PCR) 05/02/21 05/02/21 05/02/21 04:55 04:55 04:55 WBC MCH MCHC RDW 16.1 H Lymph % (Auto) Lymph # (Auto) [place] # (Auto) Eos # (Auto) Baso # (Auto) Seg Neutrophils % Seg Neuts % (Manual) Lymphocytes % (Manual) Seg Neutrophils # Seg Neutrophils # Man Lymphocytes # (Manual) D-Dimer 1401.08 H ABG pH POC ABG pCO2 POC ABG pO2 ABG pO2 ABG HCO3 ABG O2 Saturation ABG Base Excess ABG Oxyhemoglobin ABG Sodium ABG Chloride ABG Glucose Oxyhemoglobin Carboxyhemoglobin Sodium 131 L Potassium Chloride 95.5 L Carbon Dioxide BUN 20 H Creatinine 0.3 L Glucose 288 H POC Glucose Hemoglobin A1c Ferritin AST ALT Alkaline Phosphatase Lactate Dehydrogenase C-Reactive Protein Total Protein 6.0 L Albumin 3.1 L Arterial Blood Glucose Coronavirus (PCR) 05/02/21 05/02/21 05/02/21 07:53 11:45 15:25 WBC MCH MCHC RDW Lymph % (Auto) Lymph # (Auto) [place] # (Auto) Eos # (Auto) Baso # (Auto) Seg Neutrophils % Seg Neuts % (Manual) Lymphocytes % (Manual) Seg Neutrophils # Seg Neutrophils # Man Lymphocytes # (Manual) D-Dimer ABG pH POC ABG pCO2 POC ABG pO2 ABG pO2 ABG HCO3 ABG O2 Saturation ABG Base Excess ABG Oxyhemoglobin ABG Sodium ABG Chloride ABG Glucose Oxyhemoglobin Carboxyhemoglobin Sodium Potassium Chloride Carbon Dioxide BUN Creatinine Glucose POC Glucose 180 H 228 H 275 H Hemoglobin A1c Ferritin AST ALT Alkaline Phosphatase Lactate Dehydrogenase C-Reactive Protein Total Protein Albumin Arterial Blood Glucose Coronavirus (PCR) 05/02/21 05/03/2105/03/21 22:56 04:30 04:49 WBC MCH MCHC RDW Lymph % (Auto) Lymph # (Auto) [place] # (Auto) Eos # (Auto) Baso # (Auto) Seg Neutrophils % Seg Neuts % (Manual) Lymphocytes % (Manual) Seg Neutrophils # Seg Neutrophils # Man Lymphocytes # (Manual) D-Dimer ABG pH 7.229 L POC ABG pCO2 POC ABG pO2 65.3 L ABG pO2 ABG HCO3 ABG O2 Saturation ABG Base Excess ABG Oxyhemoglobin 87.8 L ABG Sodium 133.0 L ABG Chloride 97.0 L ABG Glucose 403 H Oxyhemoglobin Carboxyhemoglobin Sodium 130 L Potassium Chloride 94.9 L Carbon Dioxide BUN 20 H Creatinine 0.5 L D Glucose 359 H POC Glucose 293 H Hemoglobin A1c Ferritin AST 54 H ALT 75 H Alkaline Phosphatase 138 H Lactate Dehydrogenase C-Reactive Protein Total Protein Albumin 3.6 L Arterial Blood Glucose 403 H Coronavirus (PCR) 05/03/21 05/03/21 05/03/21 05:27 11:26 17:57 WBC MCH MCHC RDW Lymph % (Auto) Lymph # (Auto) [place] # (Auto) Eos # (Auto) Baso # (Auto) Seg Neutrophils % Seg Neuts % (Manual) Lymphocytes % (Manual) Seg Neutrophils # Seg Neutrophils # Man Lymphocytes # (Manual) D-Dimer ABG pH POC ABG pCO2 POC ABG pO2 ABG pO2 ABG HCO3 ABG O2 Saturation ABG Base Excess ABG Oxyhemoglobin ABG Sodium ABG Chloride ABG Glucose Oxyhemoglobin Carboxyhemoglobin Sodium Potassium Chloride Carbon Dioxide BUN Creatinine Glucose POC Glucose 361 H 297 H 226 H Hemoglobin A1c Ferritin AST ALT Alkaline Phosphatase Lactate Dehydrogenase C-Reactive Protein Total Protein Albumin Arterial Blood Glucose Coronavirus (PCR) 05/03/21 05/04/21 05/04/21 23:12 05:12 07:30 WBC MCH MCHC RDW Lymph % (Auto) Lymph # (Auto) [place] # (Auto) Eos # (Auto) Baso # (Auto) Seg Neutrophils % Seg Neuts % (Manual) Lymphocytes % (Manual) Seg Neutrophils # Seg Neutrophils # Man Lymphocytes # (Manual) D-Dimer ABG pH POC ABG pCO2 POC ABG pO2 ABG pO2 ABG HCO3 ABG O2 Saturation ABG Base Excess ABG Oxyhemoglobin ABG Sodium ABG Chloride ABG Glucose Oxyhemoglobin Carboxyhemoglobin Sodium Potassium Chloride Carbon Dioxide BUN Creatinine Glucose POC Glucose 282 H 285 H 254 H Hemoglobin A1c Ferritin AST ALT Alkaline Phosphatase Lactate Dehydrogenase C-Reactive Protein Total Protein Albumin Arterial Blood Glucose Coronavirus (PCR) 05/04/21 05/04/21 05/04/21 08:58 11:45 16:07 WBC MCH MCHC RDW Lymph % (Auto) Lymph # (Auto) [place] # (Auto) Eos # (Auto) Baso # (Auto) Seg Neutrophils % Seg Neuts % (Manual) Lymphocytes % (Manual) Seg Neutrophils # Seg Neutrophils # Man Lymphocytes # (Manual) D-Dimer ABG pH POC ABG pCO2 POC ABG pO2 ABG pO2 ABG HCO3 ABG O2 Saturation ABG Base Excess ABG Oxyhemoglobin ABG Sodium ABG Chloride ABG Glucose Oxyhemoglobin Carboxyhemoglobin Sodium 134 L Potassium Chloride Carbon Dioxide BUN 20 H Creatinine 0.3 L Glucose 267 H POC Glucose 244 H 297 H Hemoglobin A1c Ferritin AST ALT Alkaline Phosphatase Lactate Dehydrogenase C-Reactive Protein Total Protein 6.0 L Albumin 3.2 L Arterial Blood Glucose Coronavirus (PCR) 05/04/21 05/05/21 05/05/21 23:32 05:00 05:13 WBC MCH MCHC RDW Lymph % (Auto) Lymph # (Auto) [place] # (Auto) Eos # (Auto) Baso # (Auto) Seg Neutrophils % Seg Neuts % (Manual) Lymphocytes % (Manual) Seg Neutrophils # Seg Neutrophils # Man Lymphocytes # (Manual) D-Dimer ABG pH POC ABG pCO2 POC ABG pO2 ABG pO2 ABG HCO3 ABG O2 Saturation ABG Base Excess ABG Oxyhemoglobin ABG Sodium ABG Chloride ABG Glucose Oxyhemoglobin Carboxyhemoglobin Sodium 132 L Potassium Chloride 96.4 L Carbon Dioxide BUN 22 H Creatinine 0.3 L Glucose 228 H POC Glucose 154 H 260 H Hemoglobin A1c Ferritin AST ALT 67 H Alkaline Phosphatase Lactate Dehydrogenase C-Reactive Protein Total Protein 6.1 L Albumin 3.2 L Arterial Blood Glucose Coronavirus (PCR) 05/05/21 05/05/21 05/05/21 11:32 17:49 23:07 WBC MCH MCHC RDW Lymph % (Auto) Lymph # (Auto) [place] # (Auto) Eos # (Auto) Baso # (Auto) Seg Neutrophils % Seg Neuts % (Manual) Lymphocytes % (Manual) Seg Neutrophils # Seg Neutrophils # Man Lymphocytes # (Manual) D-Dimer ABG pH POC ABG pCO2 POC ABG pO2 ABG pO2 ABG HCO3 ABG O2 Saturation ABG Base Excess ABG Oxyhemoglobin ABG Sodium ABG Chloride ABG Glucose Oxyhemoglobin Carboxyhemoglobin Sodium Potassium Chloride Carbon Dioxide BUN Creatinine Glucose POC Glucose 279 H 308 H 213 H Hemoglobin A1c Ferritin AST ALT Alkaline Phosphatase Lactate Dehydrogenase C-Reactive Protein Total Protein Albumin Arterial Blood Glucose Coronavirus (PCR) 05/06/21 05/06/21 05/06/21 05:00 05:00 05:20 WBC MCH MCHC RDW 16.8 H Lymph % (Auto) Lymph # (Auto) [place] # (Auto) Eos # (Auto) Baso # (Auto) Seg Neutrophils % Seg Neuts % (Manual) 99.0 H Lymphocytes % (Manual) Seg Neutrophils # Seg Neutrophils # Man 10.9 H Lymphocytes # (Manual) 0.0 L D-Dimer ABG pH POC ABG pCO2 POC ABG pO2 ABG pO2 ABG HCO3 ABG O2 Saturation ABG Base Excess ABG Oxyhemoglobin ABG Sodium ABG Chloride ABG Glucose Oxyhemoglobin Carboxyhemoglobin Sodium 133 L Potassium Chloride Carbon Dioxide BUN 21 H Creatinine 0.3 L Glucose 259 H POC Glucose 308 H Hemoglobin A1c Ferritin AST ALT Alkaline Phosphatase Lactate Dehydrogenase C-Reactive Protein Total Protein Albumin 3.2 L Arterial Blood Glucose Coronavirus (PCR) 05/06/21 05/06/21 05/06/21 11:24 17:54 21:32 WBC MCH MCHC RDW Lymph % (Auto) Lymph # (Auto) [place] # (Auto) Eos # (Auto) Baso # (Auto) Seg Neutrophils % Seg Neuts % (Manual) Lymphocytes % (Manual) Seg Neutrophils # Seg Neutrophils # Man Lymphocytes # (Manual) D-Dimer ABG pH POC ABG pCO2 POC ABG pO2 ABG pO2 ABG HCO3 ABG O2 Saturation ABG Base Excess ABG Oxyhemoglobin ABG Sodium ABG Chloride ABG Glucose Oxyhemoglobin Carboxyhemoglobin Sodium Potassium Chloride Carbon Dioxide BUN Creatinine Glucose POC Glucose 262 H 124 H 246 H Hemoglobin A1c Ferritin AST ALT Alkaline Phosphatase Lactate Dehydrogenase C-Reactive Protein Total Protein Albumin Arterial Blood Glucose Coronavirus (PCR) 05/06/21 05/07/21 05/07/21 23:10 04:54 04:54 WBC MCH MCHC RDW Lymph % (Auto) Lymph # (Auto) [place] # (Auto) Eos # (Auto) Baso # (Auto) Seg Neutrophils % Seg Neuts % (Manual) Lymphocytes % (Manual) Seg Neutrophils # Seg Neutrophils # Man Lymphocytes # (Manual) D-Dimer 1609.28 H ABG pH POC ABG pCO2 POC ABG pO2 ABG pO2 ABG HCO3 ABG O2 Saturation ABG Base Excess ABG Oxyhemoglobin ABG Sodium ABG Chloride ABG Glucose Oxyhemoglobin Carboxyhemoglobin Sodium 136 L Potassium Chloride Carbon Dioxide BUN 23 H Creatinine 0.3 L Glucose 110 H POC Glucose 249 H Hemoglobin A1c Ferritin AST ALT Alkaline Phosphatase Lactate Dehydrogenase C-Reactive Protein Total Protein 6.2 L Albumin 3.0 L Arterial Blood Glucose Coronavirus (PCR) 05/07/21 05/07/21 05/07/21 04:54 04:54 11:41 WBC MCH MCHC RDW Lymph % (Auto) Lymph # (Auto) [place] # (Auto) Eos # (Auto) Baso # (Auto) Seg Neutrophils % Seg Neuts % (Manual) Lymphocytes % (Manual) Seg Neutrophils # Seg Neutrophils # Man Lymphocytes # (Manual) D-Dimer ABG pH POC ABG pCO2 POC ABG pO2 ABG pO2 ABG HCO3 ABG O2 Saturation ABG Base Excess ABG Oxyhemoglobin ABG Sodium ABG Chloride ABG Glucose Oxyhemoglobin Carboxyhemoglobin Sodium Potassium Chloride Carbon Dioxide BUN Creatinine Glucose POC Glucose 118 H Hemoglobin A1c Ferritin 296.1 H AST ALT Alkaline Phosphatase Lactate Dehydrogenase 724 H C-Reactive Protein Total Protein Albumin Arterial Blood Glucose Coronavirus (PCR) 05/07/21 05/07/21 05/08/21 16:43 22:34 06:44 WBC MCH MCHC RDW Lymph % (Auto) Lymph # (Auto) [place] # (Auto) Eos # (Auto) Baso # (Auto) Seg Neutrophils % Seg Neuts % (Manual) Lymphocytes % (Manual) Seg Neutrophils # Seg Neutrophils # Man Lymphocytes # (Manual) D-Dimer ABG pH POC ABG pCO2 POC ABG pO2 ABG pO2 ABG HCO3 ABG O2 Saturation ABG Base Excess ABG Oxyhemoglobin ABG Sodium ABG Chloride ABG Glucose Oxyhemoglobin Carboxyhemoglobin Sodium Potassium Chloride Carbon Dioxide BUN Creatinine Glucose POC Glucose 159 H 233 H 235 H Hemoglobin A1c Ferritin AST ALT Alkaline Phosphatase Lactate Dehydrogenase C-Reactive Protein Total Protein Albumin Arterial Blood Glucose Coronavirus (PCR) 05/08/21 05/08/21 05/08/21 07:49 11:56 17:13 WBC MCH MCHC RDW Lymph % (Auto) Lymph # (Auto) [place] # (Auto) Eos # (Auto) Baso # (Auto) Seg Neutrophils % Seg Neuts % (Manual) Lymphocytes % (Manual) Seg Neutrophils # Seg Neutrophils # Man Lymphocytes # (Manual) D-Dimer ABG pH POC ABG pCO2 POC ABG pO2 ABG pO2 ABG HCO3 ABG O2 Saturation ABG Base Excess ABG Oxyhemoglobin ABG Sodium ABG Chloride ABG Glucose Oxyhemoglobin Carboxyhemoglobin Sodium Potassium Chloride Carbon Dioxide BUN Creatinine Glucose POC Glucose 219 H 184 H 182 H Hemoglobin A1c Ferritin AST ALT Alkaline Phosphatase Lactate Dehydrogenase C-Reactive Protein Total Protein Albumin Arterial Blood Glucose Coronavirus (PCR) 05/08/21 05/09/21 05/09/21 23:35 05:20 05:20 WBC MCH MCHC RDW Lymph % (Auto) Lymph # (Auto) [place] # (Auto) Eos # (Auto) Baso # (Auto) Seg Neutrophils % Seg Neuts % (Manual) Lymphocytes % (Manual) Seg Neutrophils # Seg Neutrophils # Man Lymphocytes # (Manual) D-Dimer 1003.87 H ABG pH POC ABG pCO2 POC ABG pO2 ABG pO2 ABG HCO3 ABG O2 Saturation ABG Base Excess ABG Oxyhemoglobin ABG Sodium ABG Chloride ABG Glucose Oxyhemoglobin Carboxyhemoglobin Sodium Potassium Chloride Carbon Dioxide BUN Creatinine Glucose POC Glucose 198 H Hemoglobin A1c Ferritin 378.7 H AST ALT Alkaline Phosphatase Lactate Dehydrogenase C-Reactive Protein Total Protein Albumin Arterial Blood Glucose Coronavirus (PCR) 05/09/21 05/09/21 05/09/21 05:20 06:04 12:53 WBC MCH MCHC RDW Lymph % (Auto) Lymph # (Auto) [place] # (Auto) Eos # (Auto) Baso # (Auto) Seg Neutrophils % Seg Neuts % (Manual) Lymphocytes % (Manual) Seg Neutrophils # Seg Neutrophils # Man Lymphocytes # (Manual) D-Dimer ABG pH POC ABG pCO2 POC ABG pO2 ABG pO2 ABG HCO3 ABG O2 Saturation ABG Base Excess ABG Oxyhemoglobin ABG Sodium ABG Chloride ABG Glucose Oxyhemoglobin Carboxyhemoglobin Sodium Potassium Chloride Carbon Dioxide BUN Creatinine Glucose POC Glucose 159 H 180 H Hemoglobin A1c Ferritin AST ALT Alkaline Phosphatase Lactate Dehydrogenase 558 H C-Reactive Protein 2.40 H Total Protein Albumin Arterial Blood Glucose Coronavirus (PCR) 05/09/21 05/09/21 05/10/21 16:43 21:27 10:18 WBC MCH MCHC RDW Lymph % (Auto) Lymph # (Auto) [place] # (Auto) Eos # (Auto) Baso # (Auto) Seg Neutrophils % Seg Neuts % (Manual) Lymphocytes % (Manual) Seg Neutrophils # Seg Neutrophils # Man Lymphocytes # (Manual) D-Dimer ABG pH POC ABG pCO2 POC ABG pO2 ABG pO2 ABG HCO3 ABG O2 Saturation ABG Base Excess ABG Oxyhemoglobin ABG Sodium ABG Chloride ABG Glucose Oxyhemoglobin Carboxyhemoglobin Sodium Potassium Chloride Carbon Dioxide BUN Creatinine Glucose POC Glucose 212 H 285 H 261 H Hemoglobin A1c Ferritin AST ALT Alkaline Phosphatase Lactate Dehydrogenase C-Reactive Protein Total Protein Albumin Arterial Blood Glucose Coronavirus (PCR) 05/10/21 05/10/21 05/11/21 17:58 18:02 00:29 WBC MCH MCHC RDW Lymph % (Auto) Lymph # (Auto) [place] # (Auto) Eos # (Auto) Baso # (Auto) Seg Neutrophils % Seg Neuts % (Manual) Lymphocytes % (Manual) Seg Neutrophils # Seg Neutrophils # Man Lymphocytes # (Manual) D-Dimer ABG pH POC ABG pCO2 POC ABG pO2 ABG pO2 ABG HCO3 ABG O2 Saturation ABG Base Excess ABG Oxyhemoglobin ABG Sodium ABG Chloride ABG Glucose Oxyhemoglobin Carboxyhemoglobin Sodium Potassium Chloride Carbon Dioxide BUN Creatinine Glucose POC Glucose 213 H 179 H 149 H Hemoglobin A1c Ferritin AST ALT Alkaline Phosphatase Lactate Dehydrogenase C-Reactive Protein Total Protein Albumin Arterial Blood Glucose Coronavirus (PCR) 05/11/21 05/11/21 05/11/21 05:22 11:32 17:00 WBC 14.9 H MCH MCHC RDW 18.9 H Lymph % (Auto) 4.9 L Lymph # (Auto) 0.7 L [place] # (Auto) Eos # (Auto) Baso # (Auto) 0.2 H Seg Neutrophils % Seg Neuts % (Manual) Lymphocytes % (Manual) Seg Neutrophils # 13.3 H Seg Neutrophils # Man Lymphocytes # (Manual) D-Dimer ABG pH POC ABG pCO2 POC ABG pO2 ABG pO2 ABG HCO3 ABG O2 Saturation ABG Base Excess ABG Oxyhemoglobin ABG Sodium ABG Chloride ABG Glucose Oxyhemoglobin Carboxyhemoglobin Sodium Potassium Chloride Carbon Dioxide BUN Creatinine Glucose POC Glucose 162 H 179 H Hemoglobin A1c Ferritin AST ALT Alkaline Phosphatase Lactate Dehydrogenase C-Reactive Protein Total Protein Albumin Arterial Blood Glucose Coronavirus (PCR) 05/11/21 05/11/21 05/11/21 17:00 17:33 22:03 WBC MCH MCHC RDW Lymph % (Auto) Lymph # (Auto) [place] # (Auto) Eos # (Auto) Baso # (Auto) Seg Neutrophils % Seg Neuts % (Manual) Lymphocytes % (Manual) Seg Neutrophils # Seg Neutrophils # Man Lymphocytes # (Manual) D-Dimer ABG pH POC ABG pCO2 POC ABG pO2 ABG pO2 ABG HCO3 ABG O2 Saturation ABG Base Excess ABG Oxyhemoglobin ABG Sodium ABG Chloride ABG Glucose Oxyhemoglobin Carboxyhemoglobin Sodium 135 L Potassium Chloride 97.3 L Carbon Dioxide BUN 21 H Creatinine 0.3 L Glucose 133 H POC Glucose 140 H 282 H Hemoglobin A1c Ferritin AST ALT 60 H Alkaline Phosphatase Lactate Dehydrogenase C-Reactive Protein Total Protein Albumin 3.1 L Arterial Blood Glucose Coronavirus (PCR) 05/12/21 05/12/21 05/12/21 04:05 04:05 04:05 WBC MCH MCHC RDW 18.4 H Lymph % (Auto) Lymph # (Auto) [place] # (Auto) Eos # (Auto) Baso # (Auto) Seg Neutrophils % Seg Neuts % (Manual) 94.0 H Lymphocytes % (Manual) 4.0 L Seg Neutrophils # Seg Neutrophils # Man Lymphocytes # (Manual) 0.3 L D-Dimer ABG pH POC ABG pCO2 POC ABG pO2 ABG pO2 ABG HCO3 ABG O2 Saturation ABG Base Excess ABG Oxyhemoglobin ABG Sodium ABG Chloride ABG Glucose Oxyhemoglobin Carboxyhemoglobin Sodium 136 L Potassium Chloride Carbon Dioxide BUN 18 H Creatinine 0.2 L Glucose 142 H POC Glucose Hemoglobin A1c Ferritin 350.7 H AST ALT Alkaline Phosphatase Lactate Dehydrogenase 546 H C-Reactive Protein Total Protein 6.1 L Albumin 3.0 L Arterial Blood Glucose Coronavirus (PCR) 05/12/21 05/12/21 05/12/21 05:11 11:17 16:27 WBC MCH MCHC RDW Lymph % (Auto) Lymph # (Auto) [place] # (Auto) Eos # (Auto) Baso # (Auto) Seg Neutrophils % Seg Neuts % (Manual) Lymphocytes % (Manual) Seg Neutrophils # Seg Neutrophils # Man Lymphocytes # (Manual) D-Dimer ABG pH POC ABG pCO2 POC ABG pO2 ABG pO2 ABG HCO3 ABG O2 Saturation ABG Base Excess ABG Oxyhemoglobin ABG Sodium ABG Chloride ABG Glucose Oxyhemoglobin Carboxyhemoglobin Sodium Potassium Chloride Carbon Dioxide BUN Creatinine Glucose POC Glucose 152 H 190 H 261 H Hemoglobin A1c Ferritin AST ALT Alkaline Phosphatase Lactate Dehydrogenase C-Reactive Protein Total Protein Albumin Arterial Blood Glucose Coronavirus (PCR) 05/12/21 05/13/21 05/13/21 20:55 11:08 21:41 WBC MCH MCHC RDW Lymph % (Auto) Lymph # (Auto) [place] # (Auto) Eos # (Auto) Baso # (Auto) Seg Neutrophils % Seg Neuts % (Manual) Lymphocytes % (Manual) Seg Neutrophils # Seg Neutrophils # Man Lymphocytes # (Manual) D-Dimer ABG pH POC ABG pCO2 POC ABG pO2 ABG pO2 ABG HCO3 ABG O2 Saturation ABG Base Excess ABG Oxyhemoglobin ABG Sodium ABG Chloride ABG Glucose Oxyhemoglobin Carboxyhemoglobin Sodium Potassium Chloride Carbon Dioxide BUN Creatinine Glucose POC Glucose 231 H 106 H 174 H Hemoglobin A1c Ferritin AST ALT Alkaline Phosphatase Lactate Dehydrogenase C-Reactive Protein Total Protein Albumin Arterial Blood Glucose Coronavirus (PCR) 05/14/21 05/14/21 05/14/21 00:53 02:23 06:06 WBC MCH MCHC RDW Lymph % (Auto) Lymph # (Auto) [place] # (Auto) Eos # (Auto) Baso # (Auto) Seg Neutrophils % Seg Neuts % (Manual) Lymphocytes % (Manual) Seg Neutrophils # Seg Neutrophils # Man Lymphocytes # (Manual) D-Dimer ABG pH POC ABG pCO2 POC ABG pO2 ABG pO2 130.3 H ABG HCO3 30.6 H ABG O2 Saturation ABG Base Excess 4.9 H ABG Oxyhemoglobin ABG Sodium ABG Chloride ABG Glucose Oxyhemoglobin Carboxyhemoglobin Sodium Potassium Chloride Carbon Dioxide BUN Creatinine Glucose POC Glucose 229 H 119 H Hemoglobin A1c Ferritin AST ALT Alkaline Phosphatase Lactate Dehydrogenase C-Reactive Protein Total Protein Albumin Arterial Blood Glucose Coronavirus (PCR) 05/14/21 05/14/21 05/14/21 07:13 07:13 07:13 WBC MCH MCHC RDW Lymph % (Auto) Lymph # (Auto) [place] # (Auto) Eos # (Auto) Baso # (Auto) Seg Neutrophils % Seg Neuts % (Manual) Lymphocytes % (Manual) Seg Neutrophils # Seg Neutrophils # Man Lymphocytes # (Manual) D-Dimer 712.80 H ABG pH POC ABG pCO2 POC ABG pO2 ABG pO2 ABG HCO3 ABG O2 Saturation ABG Base Excess ABG Oxyhemoglobin ABG Sodium ABG Chloride ABG Glucose Oxyhemoglobin Carboxyhemoglobin Sodium 133 L Potassium Chloride 95.5 L Carbon Dioxide 32 H BUN Creatinine 0.2 L Glucose 137 H POC Glucose Hemoglobin A1c Ferritin 283.5 H AST ALT 63 H Alkaline Phosphatase Lactate Dehydrogenase 563 H C-Reactive Protein Total Protein 6.1 L Albumin 3.0 L Arterial Blood Glucose Coronavirus (PCR) 05/14/21 05/14/21 05/14/21 12:21 15:33 21:50 WBC MCH MCHC RDW Lymph % (Auto) Lymph # (Auto) [place] # (Auto) Eos # (Auto) Baso # (Auto) Seg Neutrophils % Seg Neuts % (Manual) Lymphocytes % (Manual) Seg Neutrophils # Seg Neutrophils # Man Lymphocytes # (Manual) D-Dimer ABG pH POC ABG pCO2 POC ABG pO2 ABG pO2 ABG HCO3 ABG O2 Saturation ABG Base Excess ABG Oxyhemoglobin ABG Sodium ABG Chloride ABG Glucose Oxyhemoglobin Carboxyhemoglobin Sodium Potassium Chloride Carbon Dioxide BUN Creatinine Glucose POC Glucose 143 H 204 H 202 H Hemoglobin A1c Ferritin AST ALT Alkaline Phosphatase Lactate Dehydrogenase C-Reactive Protein Total Protein Albumin Arterial Blood Glucose Coronavirus (PCR) 05/15/21 05/15/21 05/15/21 05:05 11:12 16:39 WBC MCH MCHC RDW Lymph % (Auto) Lymph # (Auto) [place] # (Auto) Eos # (Auto) Baso # (Auto) Seg Neutrophils % Seg Neuts % (Manual) Lymphocytes % (Manual) Seg Neutrophils # Seg Neutrophils # Man Lymphocytes # (Manual) D-Dimer ABG pH POC ABG pCO2 POC ABG pO2 ABG pO2 ABG HCO3 ABG O2 Saturation ABG Base Excess ABG Oxyhemoglobin ABG Sodium ABG Chloride ABG Glucose Oxyhemoglobin Carboxyhemoglobin Sodium Potassium Chloride Carbon Dioxide BUN Creatinine Glucose POC Glucose 125 H 201 H 241 H Hemoglobin A1c Ferritin AST ALT Alkaline Phosphatase Lactate Dehydrogenase C-Reactive Protein Total Protein Albumin Arterial Blood Glucose Coronavirus (PCR) 05/15/21 05/16/21 05/16/21 21:31 05:04 10:40 WBC MCH MCHC RDW Lymph % (Auto) Lymph # (Auto) [place] # (Auto) Eos # (Auto) Baso # (Auto) Seg Neutrophils % Seg Neuts % (Manual) Lymphocytes % (Manual) Seg Neutrophils # Seg Neutrophils # Man Lymphocytes # (Manual) D-Dimer ABG pH POC ABG pCO2 POC ABG pO2 ABG pO2 ABG HCO3 ABG O2 Saturation ABG Base Excess ABG Oxyhemoglobin ABG Sodium ABG Chloride ABG Glucose Oxyhemoglobin Carboxyhemoglobin Sodium Potassium Chloride Carbon Dioxide BUN Creatinine Glucose POC Glucose 234 H 123 H 231 H Hemoglobin A1c Ferritin AST ALT Alkaline Phosphatase Lactate Dehydrogenase C-Reactive Protein Total Protein Albumin Arterial Blood Glucose Coronavirus (PCR) 05/16/21 05/16/21 05/17/21 18:23 21:29 06:20 WBC MCH MCHC RDW 18.8 H Lymph % (Auto) 10.2 L Lymph # (Auto) 0.8 L [place] # (Auto) Eos # (Auto) Baso # (Auto) Seg Neutrophils % 85.8 H Seg Neuts % (Manual) Lymphocytes % (Manual) Seg Neutrophils # Seg Neutrophils # Man Lymphocytes # (Manual) D-Dimer ABG pH POC ABG pCO2 POC ABG pO2 ABG pO2 ABG HCO3 ABG O2 Saturation ABG Base Excess ABG Oxyhemoglobin ABG Sodium ABG Chloride ABG Glucose Oxyhemoglobin Carboxyhemoglobin Sodium Potassium Chloride Carbon Dioxide BUN Creatinine Glucose POC Glucose 266 H 234 H Hemoglobin A1c Ferritin AST ALT Alkaline Phosphatase Lactate Dehydrogenase C-Reactive Protein Total Protein Albumin Arterial Blood Glucose Coronavirus (PCR) 05/17/21 05/17/21 05/17/21 06:20 11:06 16:36 WBC MCH MCHC RDW Lymph % (Auto) Lymph # (Auto) [place] # (Auto) Eos # (Auto) Baso # (Auto) Seg Neutrophils % Seg Neuts % (Manual) Lymphocytes % (Manual) Seg Neutrophils # Seg Neutrophils # Man Lymphocytes # (Manual) D-Dimer ABG pH POC ABG pCO2 POC ABG pO2 ABG pO2 ABG HCO3 ABG O2 Saturation ABG Base Excess ABG Oxyhemoglobin ABG Sodium ABG Chloride ABG Glucose Oxyhemoglobin Carboxyhemoglobin Sodium Potassium Chloride Carbon Dioxide 33 H BUN Creatinine 0.2 L Glucose 101 H POC Glucose 209 H 180 H Hemoglobin A1c Ferritin AST ALT Alkaline Phosphatase Lactate Dehydrogenase C-Reactive Protein Total Protein Albumin Arterial Blood Glucose Coronavirus (PCR) 05/17/21 05/18/21 05/18/21 21:06 12:00 15:06 WBC MCH MCHC RDW Lymph % (Auto) Lymph # (Auto) [place] # (Auto) Eos # (Auto) Baso # (Auto) Seg Neutrophils % Seg Neuts % (Manual) Lymphocytes % (Manual) Seg Neutrophils # Seg Neutrophils # Man Lymphocytes # (Manual) D-Dimer 874.02 H ABG pH POC ABG pCO2 POC ABG pO2 ABG pO2 ABG HCO3 ABG O2 Saturation ABG Base Excess ABG Oxyhemoglobin ABG Sodium ABG Chloride ABG Glucose Oxyhemoglobin Carboxyhemoglobin Sodium Potassium Chloride Carbon Dioxide BUN Creatinine Glucose POC Glucose 256 H 139 H Hemoglobin A1c Ferritin AST ALT Alkaline Phosphatase Lactate Dehydrogenase C-Reactive Protein Total Protein Albumin Arterial Blood Glucose Coronavirus (PCR) 05/18/21 05/18/21 05/18/21 15:06 15:06 16:08 WBC MCH MCHC RDW Lymph % (Auto) Lymph # (Auto) [place] # (Auto) Eos # (Auto) Baso # (Auto) Seg Neutrophils % Seg Neuts % (Manual) Lymphocytes % (Manual) Seg Neutrophils # Seg Neutrophils # Man Lymphocytes # (Manual) D-Dimer ABG pH POC ABG pCO2 POC ABG pO2 ABG pO2 ABG HCO3 ABG O2 Saturation ABG Base Excess ABG Oxyhemoglobin ABG Sodium ABG Chloride ABG Glucose Oxyhemoglobin Carboxyhemoglobin Sodium Potassium Chloride Carbon Dioxide BUN Creatinine Glucose POC Glucose 178 H Hemoglobin A1c Ferritin 289.6 H AST ALT Alkaline Phosphatase Lactate Dehydrogenase 605 H C-Reactive Protein Total Protein Albumin Arterial Blood Glucose Coronavirus (PCR) 05/18/21 05/19/21 05/19/21 21:22 11:57 15:26 WBC MCH MCHC RDW Lymph % (Auto) Lymph # (Auto) [place] # (Auto) Eos # (Auto) Baso # (Auto) Seg Neutrophils % Seg Neuts % (Manual) Lymphocytes % (Manual) Seg Neutrophils # Seg Neutrophils # Man Lymphocytes # (Manual) D-Dimer ABG pH POC ABG pCO2 POC ABG pO2 ABG pO2 ABG HCO3 ABG O2 Saturation ABG Base Excess ABG Oxyhemoglobin ABG Sodium ABG Chloride ABG Glucose Oxyhemoglobin Carboxyhemoglobin Sodium Potassium Chloride Carbon Dioxide BUN Creatinine Glucose POC Glucose 241 H 201 H 209 H Hemoglobin A1c Ferritin AST ALT Alkaline Phosphatase Lactate Dehydrogenase C-Reactive Protein Total Protein Albumin Arterial Blood Glucose Coronavirus (PCR) 05/19/21 05/20/21 05/20/21 20:59 07:38 08:01 WBC MCH MCHC RDW 19.7 H Lymph % (Auto) 8.3 L Lymph # (Auto) 0.8 L [place] # (Auto) Eos # (Auto) Baso # (Auto) Seg Neutrophils % 88.6 H Seg Neuts % (Manual) Lymphocytes % (Manual) Seg Neutrophils # 8.4 H Seg Neutrophils # Man Lymphocytes # (Manual) D-Dimer ABG pH POC ABG pCO2 POC ABG pO2 ABG pO2 ABG HCO3 ABG O2 Saturation ABG Base Excess ABG Oxyhemoglobin ABG Sodium ABG Chloride ABG Glucose Oxyhemoglobin Carboxyhemoglobin Sodium Potassium Chloride Carbon Dioxide BUN Creatinine Glucose POC Glucose 226 H 130 H Hemoglobin A1c Ferritin AST ALT Alkaline Phosphatase Lactate Dehydrogenase C-Reactive Protein Total Protein Albumin Arterial Blood Glucose Coronavirus (PCR) 05/20/21 05/20/21 05/20/21 08:01 11:00 16:43 WBC MCH MCHC RDW Lymph % (Auto) Lymph # (Auto) [place] # (Auto) Eos # (Auto) Baso # (Auto) Seg Neutrophils % Seg Neuts % (Manual) Lymphocytes % (Manual) Seg Neutrophils # Seg Neutrophils # Man Lymphocytes # (Manual) D-Dimer ABG pH POC ABG pCO2 POC ABG pO2 ABG pO2 ABG HCO3 ABG O2 Saturation ABG Base Excess ABG Oxyhemoglobin ABG Sodium ABG Chloride ABG Glucose Oxyhemoglobin Carboxyhemoglobin Sodium Potassium Chloride Carbon Dioxide BUN 18 H Creatinine 0.2 L Glucose 132 H POC Glucose 237 H 240 H Hemoglobin A1c Ferritin AST ALT Alkaline Phosphatase Lactate Dehydrogenase C-Reactive Protein Total Protein Albumin Arterial Blood Glucose Coronavirus (PCR) 05/20/21 05/21/21 05/21/21 21:21 07:35 11:32 WBC MCH MCHC RDW Lymph % (Auto) Lymph # (Auto) [place] # (Auto) Eos # (Auto) Baso # (Auto) Seg Neutrophils % Seg Neuts % (Manual) Lymphocytes % (Manual) Seg Neutrophils # Seg Neutrophils # Man Lymphocytes # (Manual) D-Dimer ABG pH POC ABG pCO2 POC ABG pO2 ABG pO2 ABG HCO3 ABG O2 Saturation ABG Base Excess ABG Oxyhemoglobin ABG Sodium ABG Chloride ABG Glucose Oxyhemoglobin Carboxyhemoglobin Sodium Potassium Chloride Carbon Dioxide BUN Creatinine Glucose POC Glucose 241 H 162 H 171 H Hemoglobin A1c Ferritin AST ALT Alkaline Phosphatase Lactate Dehydrogenase C-Reactive Protein Total Protein Albumin Arterial Blood Glucose Coronavirus (PCR) 05/21/21 05/21/21 05/22/21 16:22 20:43 05:14 WBC MCH MCHC RDW Lymph % (Auto) Lymph # (Auto) [place] # (Auto) Eos # (Auto) Baso # (Auto) Seg Neutrophils % Seg Neuts % (Manual) Lymphocytes % (Manual) Seg Neutrophils # Seg Neutrophils # Man Lymphocytes # (Manual) D-Dimer ABG pH POC ABG pCO2 POC ABG pO2 ABG pO2 ABG HCO3 ABG O2 Saturation ABG Base Excess ABG Oxyhemoglobin ABG Sodium ABG Chloride ABG Glucose Oxyhemoglobin Carboxyhemoglobin Sodium Potassium Chloride Carbon Dioxide BUN Creatinine Glucose POC Glucose 244 H 299 H 140 H Hemoglobin A1c Ferritin AST ALT Alkaline Phosphatase Lactate Dehydrogenase C-Reactive Protein Total Protein Albumin Arterial Blood Glucose Coronavirus (PCR) 05/22/21 05/22/21 05/22/21 08:45 11:54 16:15 WBC MCH MCHC RDW Lymph % (Auto) Lymph # (Auto) [place] # (Auto) Eos # (Auto) Baso # (Auto) Seg Neutrophils % Seg Neuts % (Manual) Lymphocytes % (Manual) Seg Neutrophils # Seg Neutrophils # Man Lymphocytes # (Manual) D-Dimer ABG pH POC ABG pCO2 POC ABG pO2 ABG pO2 ABG HCO3 ABG O2 Saturation ABG Base Excess ABG Oxyhemoglobin ABG Sodium ABG Chloride ABG Glucose Oxyhemoglobin Carboxyhemoglobin Sodium Potassium Chloride Carbon Dioxide BUN Creatinine Glucose POC Glucose 133 H 265 H 221 H Hemoglobin A1c Ferritin AST ALT Alkaline Phosphatase Lactate Dehydrogenase C-Reactive Protein Total Protein Albumin Arterial Blood Glucose Coronavirus (PCR) 05/22/21 05/23/21 05/23/21 21:43 08:20 09:50 WBC MCH MCHC RDW Lymph % (Auto) Lymph # (Auto) [place] # (Auto) Eos # (Auto) Baso # (Auto) Seg Neutrophils % Seg Neuts % (Manual) Lymphocytes % (Manual) Seg Neutrophils # Seg Neutrophils # Man Lymphocytes # (Manual) D-Dimer 910.38 H ABG pH POC ABG pCO2 POC ABG pO2 ABG pO2 ABG HCO3 ABG O2 Saturation ABG Base Excess ABG Oxyhemoglobin ABG Sodium ABG Chloride ABG Glucose Oxyhemoglobin Carboxyhemoglobin Sodium Potassium Chloride Carbon Dioxide BUN Creatinine Glucose POC Glucose 262 H 140 H Hemoglobin A1c Ferritin AST ALT Alkaline Phosphatase Lactate Dehydrogenase C-Reactive Protein Total Protein Albumin Arterial Blood Glucose Coronavirus (PCR) 05/23/21 05/23/21 05/23/21 09:50 09:50 10:52 WBC MCH MCHC RDW Lymph % (Auto) Lymph # (Auto) [place] # (Auto) Eos # (Auto) Baso # (Auto) Seg Neutrophils % Seg Neuts % (Manual) Lymphocytes % (Manual) Seg Neutrophils # Seg Neutrophils # Man Lymphocytes # (Manual) D-Dimer ABG pH POC ABG pCO2 POC ABG pO2 ABG pO2 ABG HCO3 ABG O2 Saturation ABG Base Excess ABG Oxyhemoglobin ABG Sodium ABG Chloride ABG Glucose Oxyhemoglobin Carboxyhemoglobin Sodium Potassium Chloride Carbon Dioxide BUN Creatinine Glucose POC Glucose 241 H Hemoglobin A1c Ferritin 244.9 H AST ALT Alkaline Phosphatase Lactate Dehydrogenase 584 H C-Reactive Protein Total Protein Albumin Arterial Blood Glucose Coronavirus (PCR) 05/23/21 05/23/21 05/24/21 17:24 21:52 07:44 WBC MCH MCHC RDW Lymph % (Auto) Lymph # (Auto) [place] # (Auto) Eos # (Auto) Baso # (Auto) Seg Neutrophils % Seg Neuts % (Manual) Lymphocytes % (Manual) Seg Neutrophils # Seg Neutrophils # Man Lymphocytes # (Manual) D-Dimer ABG pH POC ABG pCO2 POC ABG pO2 ABG pO2 ABG HCO3 ABG O2 Saturation ABG Base Excess ABG Oxyhemoglobin ABG Sodium ABG Chloride ABG Glucose Oxyhemoglobin Carboxyhemoglobin Sodium Potassium Chloride Carbon Dioxide BUN Creatinine Glucose POC Glucose 197 H 289 H 161 H Hemoglobin A1c Ferritin AST ALT Alkaline Phosphatase Lactate Dehydrogenase C-Reactive Protein Total Protein Albumin Arterial Blood Glucose Coronavirus (PCR) 05/24/21 05/24/21 05/24/21 11:17 17:51 21:26 WBC MCH MCHC RDW Lymph % (Auto) Lymph # (Auto) [place] # (Auto) Eos # (Auto) Baso # (Auto) Seg Neutrophils % Seg Neuts % (Manual) Lymphocytes % (Manual) Seg Neutrophils # Seg Neutrophils # Man Lymphocytes # (Manual) D-Dimer ABG pH POC ABG pCO2 POC ABG pO2 ABG pO2 ABG HCO3 ABG O2 Saturation ABG Base Excess ABG Oxyhemoglobin ABG Sodium ABG Chloride ABG Glucose Oxyhemoglobin Carboxyhemoglobin Sodium Potassium Chloride Carbon Dioxide BUN Creatinine Glucose POC Glucose 308 H 175 H 198 H Hemoglobin A1c Ferritin AST ALT Alkaline Phosphatase Lactate Dehydrogenase C-Reactive Protein Total Protein Albumin Arterial Blood Glucose Coronavirus (PCR) 05/25/21 05/25/21 05/25/21 08:14 11:13 17:13 WBC MCH MCHC RDW Lymph % (Auto) Lymph # (Auto) [place] # (Auto) Eos # (Auto) Baso # (Auto) Seg Neutrophils % Seg Neuts % (Manual) Lymphocytes % (Manual) Seg Neutrophils # Seg Neutrophils # Man Lymphocytes # (Manual) D-Dimer ABG pH POC ABG pCO2 POC ABG pO2 ABG pO2 ABG HCO3 ABG O2 Saturation ABG Base Excess ABG Oxyhemoglobin ABG Sodium ABG Chloride ABG Glucose Oxyhemoglobin Carboxyhemoglobin Sodium Potassium Chloride Carbon Dioxide BUN Creatinine Glucose POC Glucose 203 H 339 H 235 H Hemoglobin A1c Ferritin AST ALT Alkaline Phosphatase Lactate Dehydrogenase C-Reactive Protein Total Protein Albumin Arterial Blood Glucose Coronavirus (PCR) 05/25/21 05/26/21 05/26/21 21:03 07:33 11:19 WBC MCH MCHC RDW Lymph % (Auto) Lymph # (Auto) [place] # (Auto) Eos # (Auto) Baso # (Auto) Seg Neutrophils % Seg Neuts % (Manual) Lymphocytes % (Manual) Seg Neutrophils # Seg Neutrophils # Man Lymphocytes # (Manual) D-Dimer ABG pH POC ABG pCO2 POC ABG pO2 ABG pO2 ABG HCO3 ABG O2 Saturation ABG Base Excess ABG Oxyhemoglobin ABG Sodium ABG Chloride ABG Glucose Oxyhemoglobin Carboxyhemoglobin Sodium Potassium Chloride Carbon Dioxide BUN Creatinine Glucose POC Glucose 263 H 156 H 288 H Hemoglobin A1c Ferritin AST ALT Alkaline Phosphatase Lactate Dehydrogenase C-Reactive Protein Total Protein Albumin Arterial Blood Glucose Coronavirus (PCR) 05/26/21 05/26/21 05/27/21 16:26 20:55 07:38 WBC MCH MCHC RDW Lymph % (Auto) Lymph # (Auto) [place] # (Auto) Eos # (Auto) Baso # (Auto) Seg Neutrophils % Seg Neuts % (Manual) Lymphocytes % (Manual) Seg Neutrophils # Seg Neutrophils # Man Lymphocytes # (Manual) D-Dimer ABG pH POC ABG pCO2 POC ABG pO2 ABG pO2 ABG HCO3 ABG O2 Saturation ABG Base Excess ABG Oxyhemoglobin ABG Sodium ABG Chloride ABG Glucose Oxyhemoglobin Carboxyhemoglobin Sodium Potassium Chloride Carbon Dioxide BUN Creatinine Glucose POC Glucose 286 H 293 H 115 H Hemoglobin A1c Ferritin AST ALT Alkaline Phosphatase Lactate Dehydrogenase C-Reactive Protein Total Protein Albumin Arterial Blood Glucose Coronavirus (PCR) 05/27/21 05/27/21 05/27/21 11:46 15:58 21:02 WBC MCH MCHC RDW Lymph % (Auto) Lymph # (Auto) [place] # (Auto) Eos # (Auto) Baso # (Auto) Seg Neutrophils % Seg Neuts % (Manual) Lymphocytes % (Manual) Seg Neutrophils # Seg Neutrophils # Man Lymphocytes # (Manual) D-Dimer ABG pH POC ABG pCO2 POC ABG pO2 ABG pO2 ABG HCO3 ABG O2 Saturation ABG Base Excess ABG Oxyhemoglobin ABG Sodium ABG Chloride ABG Glucose Oxyhemoglobin Carboxyhemoglobin Sodium Potassium Chloride Carbon Dioxide BUN Creatinine Glucose POC Glucose 260 H 318 H 246 H Hemoglobin A1c Ferritin AST ALT Alkaline Phosphatase Lactate Dehydrogenase C-Reactive Protein Total Protein Albumin Arterial Blood Glucose Coronavirus (PCR) 05/28/21 05/28/21 05/28/21 07:34 11:31 16:36 WBC MCH MCHC RDW Lymph % (Auto) Lymph # (Auto) [place] # (Auto) Eos # (Auto) Baso # (Auto) Seg Neutrophils % Seg Neuts % (Manual) Lymphocytes % (Manual) Seg Neutrophils # Seg Neutrophils # Man Lymphocytes # (Manual) D-Dimer ABG pH POC ABG pCO2 POC ABG pO2 ABG pO2 ABG HCO3 ABG O2 Saturation ABG Base Excess ABG Oxyhemoglobin ABG Sodium ABG Chloride ABG Glucose Oxyhemoglobin Carboxyhemoglobin Sodium Potassium Chloride Carbon Dioxide BUN Creatinine Glucose POC Glucose 185 H 297 H 183 H Hemoglobin A1c Ferritin AST ALT Alkaline Phosphatase Lactate Dehydrogenase C-Reactive Protein Total Protein Albumin Arterial Blood Glucose Coronavirus (PCR) 05/28/21 05/29/21 05/29/21 21:19 07:34 11:19 WBC MCH MCHC RDW Lymph % (Auto) Lymph # (Auto) [place] # (Auto) Eos # (Auto) Baso # (Auto) Seg Neutrophils % Seg Neuts % (Manual) Lymphocytes % (Manual) Seg Neutrophils # Seg Neutrophils # Man Lymphocytes # (Manual) D-Dimer ABG pH POC ABG pCO2 POC ABG pO2 ABG pO2 ABG HCO3 ABG O2 Saturation ABG Base Excess ABG Oxyhemoglobin ABG Sodium ABG Chloride ABG Glucose Oxyhemoglobin Carboxyhemoglobin Sodium Potassium Chloride Carbon Dioxide BUN Creatinine Glucose POC Glucose 274 H 139 H 293 H Hemoglobin A1c Ferritin AST ALT Alkaline Phosphatase Lactate Dehydrogenase C-Reactive Protein Total Protein Albumin Arterial Blood Glucose Coronavirus (PCR) 05/29/21 05/29/21 05/30/21 16:36 22:44 05:55 WBC MCH MCHC RDW 21.3 H Lymph % (Auto) 8.0 L Lymph # (Auto) 0.6 L [place] # (Auto) Eos # (Auto) Baso # (Auto) Seg Neutrophils % 88.6 H Seg Neuts % (Manual) Lymphocytes % (Manual) Seg Neutrophils # Seg Neutrophils # Man Lymphocytes # (Manual) D-Dimer ABG pH POC ABG pCO2 POC ABG pO2 ABG pO2 ABG HCO3 ABG O2 Saturation ABG Base Excess ABG Oxyhemoglobin ABG Sodium ABG Chloride ABG Glucose Oxyhemoglobin Carboxyhemoglobin Sodium Potassium Chloride Carbon Dioxide BUN Creatinine Glucose POC Glucose 299 H 160 H Hemoglobin A1c Ferritin AST ALT Alkaline Phosphatase Lactate Dehydrogenase C-Reactive Protein Total Protein Albumin Arterial Blood Glucose Coronavirus (PCR) 05/30/21 05/30/21 05/30/21 05:55 08:04 11:13 WBC MCH MCHC RDW Lymph % (Auto) Lymph # (Auto) [place] # (Auto) Eos # (Auto) Baso # (Auto) Seg Neutrophils % Seg Neuts % (Manual) Lymphocytes % (Manual) Seg Neutrophils # Seg Neutrophils # Man Lymphocytes # (Manual) D-Dimer ABG pH POC ABG pCO2 POC ABG pO2 ABG pO2 ABG HCO3 ABG O2 Saturation ABG Base Excess ABG Oxyhemoglobin ABG Sodium ABG Chloride ABG Glucose Oxyhemoglobin Carboxyhemoglobin Sodium Potassium Chloride Carbon Dioxide BUN 19 H Creatinine 0.2 L Glucose 209 H POC Glucose 157 H 275 H Hemoglobin A1c Ferritin AST ALT Alkaline Phosphatase Lactate Dehydrogenase C-Reactive Protein Total Protein Albumin Arterial Blood Glucose Coronavirus (PCR) 05/30/21 05/30/21 05/31/21 17:08 22:12 07:36 WBC MCH MCHC RDW Lymph % (Auto) Lymph # (Auto) [place] # (Auto) Eos # (Auto) Baso # (Auto) Seg Neutrophils % Seg Neuts % (Manual) Lymphocytes % (Manual) Seg Neutrophils # Seg Neutrophils # Man Lymphocytes # (Manual) D-Dimer ABG pH POC ABG pCO2 POC ABG pO2 ABG pO2 ABG HCO3 ABG O2 Saturation ABG Base Excess ABG Oxyhemoglobin ABG Sodium ABG Chloride ABG Glucose Oxyhemoglobin Carboxyhemoglobin Sodium Potassium Chloride Carbon Dioxide BUN Creatinine Glucose POC Glucose 154 H 275 H 138 H Hemoglobin A1c Ferritin AST ALT Alkaline Phosphatase Lactate Dehydrogenase C-Reactive Protein Total Protein Albumin Arterial Blood Glucose Coronavirus (PCR) 05/31/21 05/31/21 05/31/21 11:17 16:55 21:25 WBC MCH MCHC RDW Lymph % (Auto) Lymph # (Auto) [place] # (Auto) Eos # (Auto) Baso # (Auto) Seg Neutrophils % Seg Neuts % (Manual) Lymphocytes % (Manual) Seg Neutrophils # Seg Neutrophils # Man Lymphocytes # (Manual) D-Dimer ABG pH POC ABG pCO2 POC ABG pO2 ABG pO2 ABG HCO3 ABG O2 Saturation ABG Base Excess ABG Oxyhemoglobin ABG Sodium ABG Chloride ABG Glucose Oxyhemoglobin Carboxyhemoglobin Sodium Potassium Chloride Carbon Dioxide BUN Creatinine Glucose POC Glucose 258 H 215 H 318 H Hemoglobin A1c Ferritin AST ALT Alkaline Phosphatase Lactate Dehydrogenase C-Reactive Protein Total Protein Albumin Arterial Blood Glucose Coronavirus (PCR) 06/01/21 06/01/21 06/01/21 07:23 11:38 16:52 WBC MCH MCHC RDW Lymph % (Auto) Lymph # (Auto) [place] # (Auto) Eos # (Auto) Baso # (Auto) Seg Neutrophils % Seg Neuts % (Manual) Lymphocytes % (Manual) Seg Neutrophils # Seg Neutrophils # Man Lymphocytes # (Manual) D-Dimer ABG pH POC ABG pCO2 POC ABG pO2 ABG pO2 ABG HCO3 ABG O2 Saturation ABG Base Excess ABG Oxyhemoglobin ABG Sodium ABG Chloride ABG Glucose Oxyhemoglobin Carboxyhemoglobin Sodium Potassium Chloride Carbon Dioxide BUN Creatinine Glucose POC Glucose 157 H 259 H 150 H Hemoglobin A1c Ferritin AST ALT Alkaline Phosphatase Lactate Dehydrogenase C-Reactive Protein Total Protein Albumin Arterial Blood Glucose Coronavirus (PCR) 06/01/21 06/02/21 06/02/21 23:16 05:34 05:34 WBC MCH MCHC RDW 21.3 H Lymph % (Auto) 9.6 L Lymph # (Auto) 0.6 L [place] # (Auto) Eos # (Auto) Baso # (Auto) Seg Neutrophils % 86.2 H Seg Neuts % (Manual) Lymphocytes % (Manual) Seg Neutrophils # Seg Neutrophils # Man Lymphocytes # (Manual) D-Dimer ABG pH POC ABG pCO2 POC ABG pO2 ABG pO2 ABG HCO3 ABG O2 Saturation ABG Base Excess ABG Oxyhemoglobin ABG Sodium ABG Chloride ABG Glucose Oxyhemoglobin Carboxyhemoglobin Sodium 136 L Potassium Chloride Carbon Dioxide BUN Creatinine 0.2 L Glucose 186 H POC Glucose 247 H Hemoglobin A1c Ferritin AST ALT 69 H Alkaline Phosphatase Lactate Dehydrogenase C-Reactive Protein Total Protein 6.1 L Albumin 3.2 L Arterial Blood Glucose Coronavirus (PCR) 06/02/21 06/02/21 06/02/21 11:25 18:23 21:32 WBC MCH MCHC RDW Lymph % (Auto) Lymph # (Auto) [place] # (Auto) Eos # (Auto) Baso # (Auto) Seg Neutrophils % Seg Neuts % (Manual) Lymphocytes % (Manual) Seg Neutrophils # Seg Neutrophils # Man Lymphocytes # (Manual) D-Dimer ABG pH POC ABG pCO2 POC ABG pO2 ABG pO2 ABG HCO3 ABG O2 Saturation ABG Base Excess ABG Oxyhemoglobin ABG Sodium ABG Chloride ABG Glucose Oxyhemoglobin Carboxyhemoglobin Sodium Potassium Chloride Carbon Dioxide BUN Creatinine Glucose POC Glucose 157 H 299 H 246 H Hemoglobin A1c Ferritin AST ALT Alkaline Phosphatase Lactate Dehydrogenase C-Reactive Protein Total Protein Albumin Arterial Blood Glucose Coronavirus (PCR) 06/03/21 06/03/21 06/03/21 08:12 12:21 17:31 WBC MCH MCHC RDW Lymph % (Auto) Lymph # (Auto) [place] # (Auto) Eos # (Auto) Baso # (Auto) Seg Neutrophils % Seg Neuts % (Manual) Lymphocytes % (Manual) Seg Neutrophils # Seg Neutrophils # Man Lymphocytes # (Manual) D-Dimer ABG pH POC ABG pCO2 POC ABG pO2 ABG pO2 ABG HCO3 ABG O2 Saturation ABG Base Excess ABG Oxyhemoglobin ABG Sodium ABG Chloride ABG Glucose Oxyhemoglobin Carboxyhemoglobin Sodium Potassium Chloride Carbon Dioxide BUN Creatinine Glucose POC Glucose 153 H 302 H 252 H Hemoglobin A1c Ferritin AST ALT Alkaline Phosphatase Lactate Dehydrogenase C-Reactive Protein Total Protein Albumin Arterial Blood Glucose Coronavirus (PCR) 06/03/21 06/04/21 06/04/21 22:08 11:12 16:01 WBC MCH MCHC RDW Lymph % (Auto) Lymph # (Auto) [place] # (Auto) Eos # (Auto) Baso # (Auto) Seg Neutrophils % Seg Neuts % (Manual) Lymphocytes % (Manual) Seg Neutrophils # Seg Neutrophils # Man Lymphocytes # (Manual) D-Dimer ABG pH POC ABG pCO2 POC ABG pO2 ABG pO2 ABG HCO3 ABG O2 Saturation ABG Base Excess ABG Oxyhemoglobin ABG Sodium ABG Chloride ABG Glucose Oxyhemoglobin Carboxyhemoglobin Sodium Potassium Chloride Carbon Dioxide BUN Creatinine Glucose POC Glucose 224 H 259 H 238 H Hemoglobin A1c Ferritin AST ALT Alkaline Phosphatase Lactate Dehydrogenase C-Reactive Protein Total Protein Albumin Arterial Blood Glucose Coronavirus (PCR) 06/04/21 06/05/21 06/05/21 21:26 05:26 05:26 WBC MCH MCHC RDW Lymph % (Auto) Lymph # (Auto) [place] # (Auto) Eos # (Auto) Baso # (Auto) Seg Neutrophils % Seg Neuts % (Manual) Lymphocytes % (Manual) Seg Neutrophils # Seg Neutrophils # Man Lymphocytes # (Manual) D-Dimer 488.49 H ABG pH POC ABG pCO2 POC ABG pO2 ABG pO2 ABG HCO3 ABG O2 Saturation ABG Base Excess ABG Oxyhemoglobin ABG Sodium ABG Chloride ABG Glucose Oxyhemoglobin Carboxyhemoglobin Sodium Potassium Chloride Carbon Dioxide BUN Creatinine 0.2 L Glucose 198 H POC Glucose 257 H Hemoglobin A1c Ferritin AST ALT Alkaline Phosphatase Lactate Dehydrogenase 475 H C-Reactive Protein Total Protein Albumin Arterial Blood Glucose Coronavirus (PCR) 06/05/21 06/05/21 06/05/21 07:20 08:30 11:00 WBC MCH MCHC RDW Lymph % (Auto) Lymph # (Auto) [place] # (Auto) Eos # (Auto) Baso # (Auto) Seg Neutrophils % Seg Neuts % (Manual) Lymphocytes % (Manual) Seg Neutrophils # Seg Neutrophils # Man Lymphocytes # (Manual) D-Dimer ABG pH POC ABG pCO2 POC ABG pO2 ABG pO2 ABG HCO3 ABG O2 Saturation ABG Base Excess ABG Oxyhemoglobin ABG Sodium ABG Chloride ABG Glucose Oxyhemoglobin Carboxyhemoglobin Sodium Potassium Chloride Carbon Dioxide BUN Creatinine Glucose POC Glucose 146 H 246 H Hemoglobin A1c Ferritin AST ALT Alkaline Phosphatase Lactate Dehydrogenase C-Reactive Protein Total Protein Albumin Arterial Blood Glucose Coronavirus (PCR) Positive A 06/05/21 06/05/21 06/06/21 16:50 22:30 07:57 WBC MCH MCHC RDW Lymph % (Auto) Lymph # (Auto) [place] # (Auto) Eos # (Auto) Baso # (Auto) Seg Neutrophils % Seg Neuts % (Manual) Lymphocytes % (Manual) Seg Neutrophils # Seg Neutrophils # Man Lymphocytes # (Manual) D-Dimer ABG pH POC ABG pCO2 POC ABG pO2 ABG pO2 ABG HCO3 ABG O2 Saturation ABG Base Excess ABG Oxyhemoglobin ABG Sodium ABG Chloride ABG Glucose Oxyhemoglobin Carboxyhemoglobin Sodium Potassium Chloride Carbon Dioxide BUN Creatinine Glucose POC Glucose 240 H 174 H 120 H Hemoglobin A1c Ferritin AST ALT Alkaline Phosphatase Lactate Dehydrogenase C-Reactive Protein Total Protein Albumin Arterial Blood Glucose Coronavirus (PCR) 06/06/21 06/06/21 06/06/21 11:14 16:50 21:11 WBC MCH MCHC RDW Lymph % (Auto) Lymph # (Auto) [place] # (Auto) Eos # (Auto) Baso # (Auto) Seg Neutrophils % Seg Neuts % (Manual) Lymphocytes % (Manual) Seg Neutrophils # Seg Neutrophils # Man Lymphocytes # (Manual) D-Dimer ABG pH POC ABG pCO2 POC ABG pO2 ABG pO2 ABG HCO3 ABG O2 Saturation ABG Base Excess ABG Oxyhemoglobin ABG Sodium ABG Chloride ABG Glucose Oxyhemoglobin Carboxyhemoglobin Sodium Potassium Chloride Carbon Dioxide BUN Creatinine Glucose POC Glucose 267 H 218 H 124 H Hemoglobin A1c Ferritin AST ALT Alkaline Phosphatase Lactate Dehydrogenase C-Reactive Protein Total Protein Albumin Arterial Blood Glucose Coronavirus (PCR) 06/07/21 06/07/21 06/08/21 11:58 15:59 07:59 WBC MCH MCHC RDW Lymph % (Auto) Lymph # (Auto) [place] # (Auto) Eos # (Auto) Baso # (Auto) Seg Neutrophils % Seg Neuts % (Manual) Lymphocytes % (Manual) Seg Neutrophils # Seg Neutrophils # Man Lymphocytes # (Manual) D-Dimer ABG pH POC ABG pCO2 POC ABG pO2 ABG pO2 ABG HCO3 ABG O2 Saturation ABG Base Excess ABG Oxyhemoglobin ABG Sodium ABG Chloride ABG Glucose Oxyhemoglobin Carboxyhemoglobin Sodium Potassium Chloride Carbon Dioxide BUN Creatinine Glucose POC Glucose 219 H 208 H 192 H Hemoglobin A1c Ferritin AST ALT Alkaline Phosphatase Lactate Dehydrogenase C-Reactive Protein Total Protein Albumin Arterial Blood Glucose Coronavirus (PCR) 06/08/21 06/08/21 06/09/21 11:26 23:28 07:33 WBC MCH MCHC RDW Lymph % (Auto) Lymph # (Auto) [place] # (Auto) Eos # (Auto) Baso # (Auto) Seg Neutrophils % Seg Neuts % (Manual) Lymphocytes % (Manual) Seg Neutrophils # Seg Neutrophils # Man Lymphocytes # (Manual) D-Dimer ABG pH POC ABG pCO2 POC ABG pO2 ABG pO2 ABG HCO3 ABG O2 Saturation ABG Base Excess ABG Oxyhemoglobin ABG Sodium ABG Chloride ABG Glucose Oxyhemoglobin Carboxyhemoglobin Sodium Potassium Chloride Carbon Dioxide BUN Creatinine Glucose POC Glucose 307 H 138 H 145 H Hemoglobin A1c Ferritin AST ALT Alkaline Phosphatase Lactate Dehydrogenase C-Reactive Protein Total Protein Albumin Arterial Blood Glucose Coronavirus (PCR) 06/09/21 06/09/21 06/09/21 11:01 15:47 21:43 WBC MCH MCHC RDW Lymph % (Auto) Lymph # (Auto) [place] # (Auto) Eos # (Auto) Baso # (Auto) Seg Neutrophils % Seg Neuts % (Manual) Lymphocytes % (Manual) Seg Neutrophils # Seg Neutrophils # Man Lymphocytes # (Manual) D-Dimer ABG pH POC ABG pCO2 POC ABG pO2 ABG pO2 ABG HCO3 ABG O2 Saturation ABG Base Excess ABG Oxyhemoglobin ABG Sodium ABG Chloride ABG Glucose Oxyhemoglobin Carboxyhemoglobin Sodium Potassium Chloride Carbon Dioxide BUN Creatinine Glucose POC Glucose 266 H 305 H 223 H Hemoglobin A1c Ferritin AST ALT Alkaline Phosphatase Lactate Dehydrogenase C-Reactive Protein Total Protein Albumin Arterial Blood Glucose Coronavirus (PCR) 06/10/21 06/10/21 06/10/21 08:27 12:10 17:45 WBC MCH MCHC RDW Lymph % (Auto) Lymph # (Auto) [place] # (Auto) Eos # (Auto) Baso # (Auto) Seg Neutrophils % Seg Neuts % (Manual) Lymphocytes % (Manual) Seg Neutrophils # Seg Neutrophils # Man Lymphocytes # (Manual) D-Dimer ABG pH POC ABG pCO2 POC ABG pO2 ABG pO2 ABG HCO3 ABG O2 Saturation ABG Base Excess ABG Oxyhemoglobin ABG Sodium ABG Chloride ABG Glucose Oxyhemoglobin Carboxyhemoglobin Sodium Potassium Chloride Carbon Dioxide BUN Creatinine Glucose POC Glucose 174 H 306 H 210 H Hemoglobin A1c Ferritin AST ALT Alkaline Phosphatase Lactate Dehydrogenase C-Reactive Protein Total Protein Albumin Arterial Blood Glucose Coronavirus (PCR) 06/10/21 06/11/21 06/11/21 21:45 09:38 09:38 WBC MCH MCHC RDW 20.9 H Lymph % (Auto) Lymph # (Auto) [place] # (Auto) Eos # (Auto) Baso # (Auto) Seg Neutrophils % Seg Neuts % (Manual) Lymphocytes % (Manual) Seg Neutrophils # Seg Neutrophils # Man Lymphocytes # (Manual) D-Dimer ABG pH POC ABG pCO2 POC ABG pO2 ABG pO2 ABG HCO3 ABG O2 Saturation ABG Base Excess ABG Oxyhemoglobin ABG Sodium ABG Chloride ABG Glucose Oxyhemoglobin Carboxyhemoglobin Sodium 135 L Potassium Chloride 90.8 L Carbon Dioxide 36 H BUN 29 H Creatinine 0.2 L Glucose 258 H POC Glucose 262 H Hemoglobin A1c Ferritin AST ALT Alkaline Phosphatase Lactate Dehydrogenase C-Reactive Protein Total Protein Albumin Arterial Blood Glucose Coronavirus (PCR) 06/11/21 06/11/21 06/11/21 11:20 15:49 22:57 WBC MCH MCHC RDW Lymph % (Auto) Lymph # (Auto) [place] # (Auto) Eos # (Auto) Baso # (Auto) Seg Neutrophils % Seg Neuts % (Manual) Lymphocytes % (Manual) Seg Neutrophils # Seg Neutrophils # Man Lymphocytes # (Manual) D-Dimer ABG pH POC ABG pCO2 POC ABG pO2 ABG pO2 ABG HCO3 ABG O2 Saturation ABG Base Excess ABG Oxyhemoglobin ABG Sodium ABG Chloride ABG Glucose Oxyhemoglobin Carboxyhemoglobin Sodium Potassium Chloride Carbon Dioxide BUN Creatinine Glucose POC Glucose 269 H 206 H 211 H Hemoglobin A1c Ferritin AST ALT Alkaline Phosphatase Lactate Dehydrogenase C-Reactive Protein Total Protein Albumin Arterial Blood Glucose Coronavirus (PCR) 06/12/21 06/12/2106/12/21 08:07 11:24 18:08 WBC MCH MCHC RDW Lymph % (Auto) Lymph # (Auto) [place] # (Auto) Eos # (Auto) Baso # (Auto) Seg Neutrophils % Seg Neuts % (Manual) Lymphocytes % (Manual) Seg Neutrophils # Seg Neutrophils # Man Lymphocytes # (Manual) D-Dimer ABG pH POC ABG pCO2 POC ABG pO2 ABG pO2 ABG HCO3 ABG O2 Saturation ABG Base Excess ABG Oxyhemoglobin ABG Sodium ABG Chloride ABG Glucose Oxyhemoglobin Carboxyhemoglobin Sodium Potassium Chloride Carbon Dioxide BUN Creatinine Glucose POC Glucose 149 H 270 H 166 H Hemoglobin A1c Ferritin AST ALT Alkaline Phosphatase Lactate Dehydrogenase C-Reactive Protein Total Protein Albumin Arterial Blood Glucose Coronavirus (PCR) 06/12/21 06/13/21 06/13/21 20:22 07:50 11:18 WBC MCH MCHC RDW Lymph % (Auto) Lymph # (Auto) [place] # (Auto) Eos # (Auto) Baso # (Auto) Seg Neutrophils % Seg Neuts % (Manual) Lymphocytes % (Manual) Seg Neutrophils # Seg Neutrophils # Man Lymphocytes # (Manual) D-Dimer ABG pH POC ABG pCO2 POC ABG pO2 ABG pO2 ABG HCO3 ABG O2 Saturation ABG Base Excess ABG Oxyhemoglobin ABG Sodium ABG Chloride ABG Glucose Oxyhemoglobin Carboxyhemoglobin Sodium Potassium Chloride Carbon Dioxide BUN Creatinine Glucose POC Glucose 155 H 163 H 293 H Hemoglobin A1c Ferritin AST ALT Alkaline Phosphatase Lactate Dehydrogenase C-Reactive Protein Total Protein Albumin Arterial Blood Glucose Coronavirus (PCR) 06/13/21 06/13/21 06/14/21 16:41 21:00 07:41 WBC MCH MCHC RDW Lymph % (Auto) Lymph # (Auto) [place] # (Auto) Eos # (Auto) Baso # (Auto) Seg Neutrophils % Seg Neuts % (Manual) Lymphocytes % (Manual) Seg Neutrophils # Seg Neutrophils # Man Lymphocytes # (Manual) D-Dimer ABG pH POC ABG pCO2 POC ABG pO2 ABG pO2 ABG HCO3 ABG O2 Saturation ABG Base Excess ABG Oxyhemoglobin ABG Sodium ABG Chloride ABG Glucose Oxyhemoglobin Carboxyhemoglobin Sodium Potassium Chloride Carbon Dioxide BUN Creatinine Glucose POC Glucose 232 H 183 H 52 L Hemoglobin A1c Ferritin AST ALT Alkaline Phosphatase Lactate Dehydrogenase C-Reactive Protein Total Protein Albumin Arterial Blood Glucose Coronavirus (PCR) 06/14/21 06/14/21 06/14/21 11:44 17:44 21:44 WBC MCH MCHC RDW Lymph % (Auto) Lymph # (Auto) [place] # (Auto) Eos # (Auto) Baso # (Auto) Seg Neutrophils % Seg Neuts % (Manual) Lymphocytes % (Manual) Seg Neutrophils # Seg Neutrophils # Man Lymphocytes # (Manual) D-Dimer ABG pH POC ABG pCO2 POC ABG pO2 ABG pO2 ABG HCO3 ABG O2 Saturation ABG Base Excess ABG Oxyhemoglobin ABG Sodium ABG Chloride ABG Glucose Oxyhemoglobin Carboxyhemoglobin Sodium Potassium Chloride Carbon Dioxide BUN Creatinine Glucose POC Glucose 205 H 293 H 288 H Hemoglobin A1c Ferritin AST ALT Alkaline Phosphatase Lactate Dehydrogenase C-Reactive Protein Total Protein Albumin Arterial Blood Glucose Coronavirus (PCR) 06/15/21 06/15/21 06/15/21 08:00 08:00 11:40 WBC MCH 33 H MCHC 35 H RDW 20.3 H Lymph % (Auto) Lymph # (Auto) [place] # (Auto) Eos # (Auto) Baso # (Auto) Seg Neutrophils % Seg Neuts % (Manual) Lymphocytes % (Manual) Seg Neutrophils # Seg Neutrophils # Man Lymphocytes # (Manual) D-Dimer ABG pH POC ABG pCO2 POC ABG pO2 ABG pO2 ABG HCO3 ABG O2 Saturation ABG Base Excess ABG Oxyhemoglobin ABG Sodium ABG Chloride ABG Glucose Oxyhemoglobin Carboxyhemoglobin Sodium Potassium 3.2 L Chloride 95.3 L Carbon Dioxide 32 H BUN 23 H Creatinine 0.2 L Glucose 103 H POC Glucose 204 H Hemoglobin A1c Ferritin AST ALT Alkaline Phosphatase Lactate Dehydrogenase C-Reactive Protein Total Protein Albumin Arterial Blood Glucose Coronavirus (PCR) 06/15/21 06/15/21 06/16/21 16:17 22:00 11:43 WBC MCH MCHC RDW Lymph % (Auto) Lymph # (Auto) [place] # (Auto) Eos # (Auto) Baso # (Auto) Seg Neutrophils % Seg Neuts % (Manual) Lymphocytes % (Manual) Seg Neutrophils # Seg Neutrophils # Man Lymphocytes # (Manual) D-Dimer ABG pH POC ABG pCO2 POC ABG pO2 ABG pO2 ABG HCO3 ABG O2 Saturation ABG Base Excess ABG Oxyhemoglobin ABG Sodium ABG Chloride ABG Glucose Oxyhemoglobin Carboxyhemoglobin Sodium Potassium Chloride Carbon Dioxide BUN Creatinine Glucose POC Glucose 295 H 233 H 201 H Hemoglobin A1c Ferritin AST ALT Alkaline Phosphatase Lactate Dehydrogenase C-Reactive Protein Total Protein Albumin Arterial Blood Glucose Coronavirus (PCR) 06/16/21 06/16/21 06/17/21 17:21 21:27 07:12 WBC MCH MCHC RDW Lymph % (Auto) Lymph # (Auto) [place] # (Auto) Eos # (Auto) Baso # (Auto) Seg Neutrophils % Seg Neuts % (Manual) Lymphocytes % (Manual) Seg Neutrophils # Seg Neutrophils # Man Lymphocytes # (Manual) D-Dimer ABG pH POC ABG pCO2 POC ABG pO2 ABG pO2 ABG HCO3 ABG O2 Saturation ABG Base Excess ABG Oxyhemoglobin ABG Sodium ABG Chloride ABG Glucose Oxyhemoglobin Carboxyhemoglobin Sodium Potassium Chloride Carbon Dioxide BUN Creatinine Glucose POC Glucose 299 H 290 H 67 L Hemoglobin A1c Ferritin AST ALT Alkaline Phosphatase Lactate Dehydrogenase C-Reactive Protein Total Protein Albumin Arterial Blood Glucose Coronavirus (PCR) 06/17/21 06/17/21 06/17/21 11:53 17:02 22:25 WBC MCH MCHC RDW Lymph % (Auto) Lymph # (Auto) [place] # (Auto) Eos # (Auto) Baso # (Auto) Seg Neutrophils % Seg Neuts % (Manual) Lymphocytes % (Manual) Seg Neutrophils # Seg Neutrophils # Man Lymphocytes # (Manual) D-Dimer ABG pH POC ABG pCO2 POC ABG pO2 ABG pO2 ABG HCO3 ABG O2 Saturation ABG Base Excess ABG Oxyhemoglobin ABG Sodium ABG Chloride ABG Glucose Oxyhemoglobin Carboxyhemoglobin Sodium Potassium Chloride Carbon Dioxide BUN Creatinine Glucose POC Glucose 199 H 362 H 235 H Hemoglobin A1c Ferritin AST ALT Alkaline Phosphatase Lactate Dehydrogenase C-Reactive Protein Total Protein Albumin Arterial Blood Glucose Coronavirus (PCR) 06/18/21 06/18/21 06/18/21 08:00 11:48 16:40 WBC MCH MCHC RDW Lymph % (Auto) Lymph # (Auto) [place] # (Auto) Eos # (Auto) Baso # (Auto) Seg Neutrophils % Seg Neuts % (Manual) Lymphocytes % (Manual) Seg Neutrophils # Seg Neutrophils # Man Lymphocytes # (Manual) D-Dimer ABG pH POC ABG pCO2 POC ABG pO2 ABG pO2 ABG HCO3 ABG O2 Saturation ABG Base Excess ABG Oxyhemoglobin ABG Sodium ABG Chloride ABG Glucose Oxyhemoglobin Carboxyhemoglobin Sodium Potassium Chloride Carbon Dioxide BUN Creatinine Glucose POC Glucose 62 L 211 H 305 H Hemoglobin A1c Ferritin AST ALT Alkaline Phosphatase Lactate Dehydrogenase C-Reactive Protein Total Protein Albumin Arterial Blood Glucose Coronavirus (PCR) 06/18/21 06/19/21 06/19/21 21:26 07:27 11:32 WBC MCH MCHC RDW Lymph % (Auto) Lymph # (Auto) [place] # (Auto) Eos # (Auto) Baso # (Auto) Seg Neutrophils % Seg Neuts % (Manual) Lymphocytes % (Manual) Seg Neutrophils # Seg Neutrophils # Man Lymphocytes # (Manual) D-Dimer ABG pH POC ABG pCO2 POC ABG pO2 ABG pO2 ABG HCO3 ABG O2 Saturation ABG Base Excess ABG Oxyhemoglobin ABG Sodium ABG Chloride ABG Glucose Oxyhemoglobin Carboxyhemoglobin Sodium Potassium Chloride Carbon Dioxide BUN Creatinine Glucose POC Glucose 149 H 60 L 208 H Hemoglobin A1c Ferritin AST ALT Alkaline Phosphatase Lactate Dehydrogenase C-Reactive Protein Total Protein Albumin Arterial Blood Glucose Coronavirus (PCR) 06/19/21 06/19/21 06/20/21 16:06 22:28 07:48 WBC MCH MCHC RDW Lymph % (Auto) Lymph # (Auto) [place] # (Auto) Eos # (Auto) Baso # (Auto) Seg Neutrophils % Seg Neuts % (Manual) Lymphocytes % (Manual) Seg Neutrophils # Seg Neutrophils # Man Lymphocytes # (Manual) D-Dimer ABG pH POC ABG pCO2 POC ABG pO2 ABG pO2 ABG HCO3 ABG O2 Saturation ABG Base Excess ABG Oxyhemoglobin ABG Sodium ABG Chloride ABG Glucose Oxyhemoglobin Carboxyhemoglobin Sodium Potassium Chloride Carbon Dioxide BUN Creatinine Glucose POC Glucose 266 H 166 H 58 L Hemoglobin A1c Ferritin AST ALT Alkaline Phosphatase Lactate Dehydrogenase C-Reactive Protein Total Protein Albumin Arterial Blood Glucose Coronavirus (PCR) 06/20/21 06/20/21 06/20/21 09:09 11:04 16:01 WBC MCH MCHC RDW Lymph % (Auto) Lymph # (Auto) [place] # (Auto) Eos # (Auto) Baso # (Auto) Seg Neutrophils % Seg Neuts % (Manual) Lymphocytes % (Manual) Seg Neutrophils # Seg Neutrophils # Man Lymphocytes # (Manual) D-Dimer ABG pH POC ABG pCO2 POC ABG pO2 ABG pO2 ABG HCO3 ABG O2 Saturation ABG Base Excess ABG Oxyhemoglobin ABG Sodium ABG Chloride ABG Glucose Oxyhemoglobin Carboxyhemoglobin Sodium Potassium Chloride Carbon Dioxide BUN Creatinine Glucose POC Glucose 146 H 225 H 330 H Hemoglobin A1c Ferritin AST ALT Alkaline Phosphatase Lactate Dehydrogenase C-Reactive Protein Total Protein Albumin Arterial Blood Glucose Coronavirus (PCR) 06/20/21 06/21/21 06/21/21 20:46 06:45 06:45 WBC MCH MCHC RDW 20.0 H Lymph % (Auto) Lymph # (Auto) [place] # (Auto) Eos # (Auto) Baso # (Auto) Seg Neutrophils % Seg Neuts % (Manual) Lymphocytes % (Manual) Seg Neutrophils # Seg Neutrophils # Man Lymphocytes # (Manual) D-Dimer ABG pH POC ABG pCO2 POC ABG pO2 ABG pO2 ABG HCO3 ABG O2 Saturation ABG Base Excess ABG Oxyhemoglobin ABG Sodium ABG Chloride ABG Glucose Oxyhemoglobin Carboxyhemoglobin Sodium Potassium 2.9 L* Chloride 95.0 L Carbon Dioxide 31 H BUN 23 H Creatinine 0.2 L Glucose 45 L POC Glucose 215 H Hemoglobin A1c Ferritin AST ALT Alkaline Phosphatase Lactate Dehydrogenase C-Reactive Protein Total Protein Albumin Arterial Blood Glucose Coronavirus (PCR) 06/21/21 06/21/21 06/21/21 07:38 09:06 12:40 WBC MCH MCHC RDW Lymph % (Auto) Lymph # (Auto) [place] # (Auto) Eos # (Auto) Baso # (Auto) Seg Neutrophils % Seg Neuts % (Manual) Lymphocytes % (Manual) Seg Neutrophils # Seg Neutrophils # Man Lymphocytes # (Manual) D-Dimer ABG pH POC ABG pCO2 POC ABG pO2 ABG pO2 ABG HCO3 ABG O2 Saturation ABG Base Excess ABG Oxyhemoglobin ABG Sodium ABG Chloride ABG Glucose Oxyhemoglobin Carboxyhemoglobin Sodium Potassium Chloride Carbon Dioxide BUN Creatinine Glucose POC Glucose 50 L 196 H 205 H Hemoglobin A1c Ferritin AST ALT Alkaline Phosphatase Lactate Dehydrogenase C-Reactive Protein Total Protein Albumin Arterial Blood Glucose Coronavirus (PCR) 06/21/21 06/22/21 06/22/21 21:36 06:25 07:15 WBC MCH MCHC RDW Lymph % (Auto) Lymph # (Auto) [place] # (Auto) Eos # (Auto) Baso # (Auto) Seg Neutrophils % Seg Neuts % (Manual) Lymphocytes % (Manual) Seg Neutrophils # Seg Neutrophils # Man Lymphocytes # (Manual) D-Dimer ABG pH POC ABG pCO2 POC ABG pO2 ABG pO2 ABG HCO3 ABG O2 Saturation ABG Base Excess ABG Oxyhemoglobin ABG Sodium ABG Chloride ABG Glucose Oxyhemoglobin Carboxyhemoglobin Sodium Potassium Chloride Carbon Dioxide BUN 20 H Creatinine 0.2 L Glucose POC Glucose 245 H 66 L Hemoglobin A1c Ferritin AST ALT Alkaline Phosphatase Lactate Dehydrogenase C-Reactive Protein Total Protein Albumin Arterial Blood Glucose Coronavirus (PCR) 06/22/21 06/22/21 06/22/21 11:03 16:07 22:03 WBC MCH MCHC RDW Lymph % (Auto) Lymph # (Auto) [place] # (Auto) Eos # (Auto) Baso # (Auto) Seg Neutrophils % Seg Neuts % (Manual) Lymphocytes % (Manual) Seg Neutrophils # Seg Neutrophils # Man Lymphocytes # (Manual) D-Dimer ABG pH POC ABG pCO2 POC ABG pO2 ABG pO2 ABG HCO3 ABG O2 Saturation ABG Base Excess ABG Oxyhemoglobin ABG Sodium ABG Chloride ABG Glucose Oxyhemoglobin Carboxyhemoglobin Sodium Potassium Chloride Carbon Dioxide BUN Creatinine Glucose POC Glucose 184 H 326 H 138 H Hemoglobin A1c Ferritin AST ALT Alkaline Phosphatase Lactate Dehydrogenase C-Reactive Protein Total Protein Albumin Arterial Blood Glucose Coronavirus (PCR) 06/23/21 06/23/21 06/23/21 07:19 10:34 16:35 WBC MCH MCHC RDW Lymph % (Auto) Lymph # (Auto) [place] # (Auto) Eos # (Auto) Baso # (Auto) Seg Neutrophils % Seg Neuts % (Manual) Lymphocytes % (Manual) Seg Neutrophils # Seg Neutrophils # Man Lymphocytes # (Manual) D-Dimer ABG pH POC ABG pCO2 POC ABG pO2 ABG pO2 ABG HCO3 ABG O2 Saturation ABG Base Excess ABG Oxyhemoglobin ABG Sodium ABG Chloride ABG Glucose Oxyhemoglobin Carboxyhemoglobin Sodium Potassium Chloride Carbon Dioxide BUN Creatinine Glucose POC Glucose 69 L 218 H 326 H Hemoglobin A1c Ferritin AST ALT Alkaline Phosphatase Lactate Dehydrogenase C-Reactive Protein Total Protein Albumin Arterial Blood Glucose Coronavirus (PCR) 06/23/21 06/24/21 06/24/21 22:44 11:41 16:54 WBC MCH MCHC RDW Lymph % (Auto) Lymph # (Auto) [place] # (Auto) Eos # (Auto) Baso # (Auto) Seg Neutrophils % Seg Neuts % (Manual) Lymphocytes % (Manual) Seg Neutrophils # Seg Neutrophils # Man Lymphocytes # (Manual) D-Dimer ABG pH POC ABG pCO2 POC ABG pO2 ABG pO2 ABG HCO3 ABG O2 Saturation ABG Base Excess ABG Oxyhemoglobin ABG Sodium ABG Chloride ABG Glucose Oxyhemoglobin Carboxyhemoglobin Sodium Potassium Chloride Carbon Dioxide BUN Creatinine Glucose POC Glucose 252 H 217 H 357 H Hemoglobin A1c Ferritin AST ALT Alkaline Phosphatase Lactate Dehydrogenase C-Reactive Protein Total Protein Albumin Arterial Blood Glucose Coronavirus (PCR) 06/24/21 06/25/21 06/25/21 20:40 11:51 16:47 WBC MCH MCHC RDW Lymph % (Auto) Lymph # (Auto) [place] # (Auto) Eos # (Auto) Baso # (Auto) Seg Neutrophils % Seg Neuts % (Manual) Lymphocytes % (Manual) Seg Neutrophils # Seg Neutrophils # Man Lymphocytes # (Manual) D-Dimer ABG pH POC ABG pCO2 POC ABG pO2 ABG pO2 ABG HCO3 ABG O2 Saturation ABG Base Excess ABG Oxyhemoglobin ABG Sodium ABG Chloride ABG Glucose Oxyhemoglobin Carboxyhemoglobin Sodium Potassium Chloride Carbon Dioxide BUN Creatinine Glucose POC Glucose 239 H 182 H 229 H Hemoglobin A1c Ferritin AST ALT Alkaline Phosphatase Lactate Dehydrogenase C-Reactive Protein Total Protein Albumin Arterial Blood Glucose Coronavirus (PCR) 06/25/21 06/26/21 06/26/21 22:27 07:20 12:19 WBC MCH MCHC RDW Lymph % (Auto) Lymph # (Auto) [place] # (Auto) Eos # (Auto) Baso # (Auto) Seg Neutrophils % Seg Neuts % (Manual) Lymphocytes % (Manual) Seg Neutrophils # Seg Neutrophils # Man Lymphocytes # (Manual) D-Dimer ABG pH POC ABG pCO2 POC ABG pO2 ABG pO2 ABG HCO3 ABG O2 Saturation ABG Base Excess ABG Oxyhemoglobin ABG Sodium ABG Chloride ABG Glucose Oxyhemoglobin Carboxyhemoglobin Sodium Potassium 3.2 L D Chloride Carbon Dioxide BUN 20 H Creatinine 0.3 L Glucose POC Glucose 209 H 273 H Hemoglobin A1c Ferritin AST ALT 77 H Alkaline Phosphatase Lactate Dehydrogenase C-Reactive Protein Total Protein Albumin 3.3 L Arterial Blood Glucose Coronavirus (PCR) 06/26/21 06/26/21 06/27/21 16:52 20:55 07:14 WBC MCH MCHC RDW Lymph % (Auto) Lymph # (Auto) [place] # (Auto) Eos # (Auto) Baso # (Auto) Seg Neutrophils % Seg Neuts % (Manual) Lymphocytes % (Manual) Seg Neutrophils # Seg Neutrophils # Man Lymphocytes # (Manual) D-Dimer ABG pH POC ABG pCO2 POC ABG pO2 ABG pO2 ABG HCO3 ABG O2 Saturation ABG Base Excess ABG Oxyhemoglobin ABG Sodium ABG Chloride ABG Glucose Oxyhemoglobin Carboxyhemoglobin Sodium Potassium Chloride Carbon Dioxide 31 H BUN 19 H Creatinine 0.2 L Glucose 112 H POC Glucose 326 H 220 H Hemoglobin A1c Ferritin AST ALT Alkaline Phosphatase Lactate Dehydrogenase C-Reactive Protein Total Protein Albumin Arterial Blood Glucose Coronavirus (PCR) 06/27/21 06/27/21 06/27/21 07:29 10:54 15:49 WBC MCH MCHC RDW Lymph % (Auto) Lymph # (Auto) [place] # (Auto) Eos # (Auto) Baso # (Auto) Seg Neutrophils % Seg Neuts % (Manual) Lymphocytes % (Manual) Seg Neutrophils # Seg Neutrophils # Man Lymphocytes # (Manual) D-Dimer ABG pH POC ABG pCO2 POC ABG pO2 ABG pO2 ABG HCO3 ABG O2 Saturation ABG Base Excess ABG Oxyhemoglobin ABG Sodium ABG Chloride ABG Glucose Oxyhemoglobin Carboxyhemoglobin Sodium Potassium Chloride Carbon Dioxide BUN Creatinine Glucose POC Glucose 115 H 228 H 240 H Hemoglobin A1c Ferritin AST ALT Alkaline Phosphatase Lactate Dehydrogenase C-Reactive Protein Total Protein Albumin Arterial Blood Glucose Coronavirus (PCR) 06/28/21 06/28/21 06/28/21 05:43 05:43 07:13 WBC MCH 33 H MCHC RDW 19.8 H Lymph % (Auto) Lymph # (Auto) [place] # (Auto) Eos # (Auto) Baso # (Auto) Seg Neutrophils % Seg Neuts % (Manual) Lymphocytes % (Manual) Seg Neutrophils # Seg Neutrophils # Man Lymphocytes # (Manual) D-Dimer ABG pH POC ABG pCO2 POC ABG pO2 ABG pO2 ABG HCO3 ABG O2 Saturation ABG Base Excess ABG Oxyhemoglobin ABG Sodium ABG Chloride ABG Glucose Oxyhemoglobin Carboxyhemoglobin Sodium Potassium 3.3 L Chloride Carbon Dioxide BUN 22 H Creatinine 0.2 L Glucose POC Glucose 69 L Hemoglobin A1c Ferritin AST ALT 63 H Alkaline Phosphatase Lactate Dehydrogenase C-Reactive Protein Total Protein Albumin 3.3 L Arterial Blood Glucose Coronavirus (PCR) 06/28/21 06/28/21 06/28/21 12:18 15:37 21:01 WBC MCH MCHC RDW Lymph % (Auto) Lymph # (Auto) [place] # (Auto) Eos # (Auto) Baso # (Auto) Seg Neutrophils % Seg Neuts % (Manual) Lymphocytes % (Manual) Seg Neutrophils # Seg Neutrophils # Man Lymphocytes # (Manual) D-Dimer ABG pH POC ABG pCO2 POC ABG pO2 ABG pO2 ABG HCO3 ABG O2 Saturation ABG Base Excess ABG Oxyhemoglobin ABG Sodium ABG Chloride ABG Glucose Oxyhemoglobin Carboxyhemoglobin Sodium Potassium Chloride Carbon Dioxide BUN Creatinine Glucose POC Glucose 154 H 201 H 191 H Hemoglobin A1c Ferritin AST ALT Alkaline Phosphatase Lactate Dehydrogenase C-Reactive Protein Total Protein Albumin Arterial Blood Glucose Coronavirus (PCR) 06/29/21 06/29/21 06/29/21 11:55 15:47 21:06 WBC MCH MCHC RDW Lymph % (Auto) Lymph # (Auto) [place] # (Auto) Eos # (Auto) Baso # (Auto) Seg Neutrophils % Seg Neuts % (Manual) Lymphocytes % (Manual) Seg Neutrophils # Seg Neutrophils # Man Lymphocytes # (Manual) D-Dimer ABG pH POC ABG pCO2 POC ABG pO2 ABG pO2 ABG HCO3 ABG O2 Saturation ABG Base Excess ABG Oxyhemoglobin ABG Sodium ABG Chloride ABG Glucose Oxyhemoglobin Carboxyhemoglobin Sodium Potassium Chloride Carbon Dioxide BUN Creatinine Glucose POC Glucose 238 H 249 H 155 H Hemoglobin A1c Ferritin AST ALT Alkaline Phosphatase Lactate Dehydrogenase C-Reactive Protein Total Protein Albumin Arterial Blood Glucose Coronavirus (PCR) 06/30/21 06/30/21 06/30/21 04:00 07:50 11:50 WBC MCH MCHC RDW Lymph % (Auto) Lymph # (Auto) [place] # (Auto) Eos # (Auto) Baso # (Auto) Seg Neutrophils % Seg Neuts % (Manual) Lymphocytes % (Manual) Seg Neutrophils # Seg Neutrophils # Man Lymphocytes # (Manual) D-Dimer ABG pH POC ABG pCO2 POC ABG pO2 ABG pO2 ABG HCO3 ABG O2 Saturation ABG Base Excess ABG Oxyhemoglobin ABG Sodium ABG Chloride ABG Glucose Oxyhemoglobin Carboxyhemoglobin Sodium Potassium 3.5 L Chloride Carbon Dioxide BUN 18 H Creatinine 0.3 L Glucose 111 H POC Glucose 117 H 250 H Hemoglobin A1c Ferritin AST ALT Alkaline Phosphatase Lactate Dehydrogenase C-Reactive Protein Total Protein Albumin Arterial Blood Glucose Coronavirus (PCR) 06/30/21 06/30/21 07/01/21 16:05 21:02 07:26 WBC MCH MCHC RDW Lymph % (Auto) Lymph # (Auto) [place] # (Auto) Eos # (Auto) Baso # (Auto) Seg Neutrophils % Seg Neuts % (Manual) Lymphocytes % (Manual) Seg Neutrophils # Seg Neutrophils # Man Lymphocytes # (Manual) D-Dimer ABG pH POC ABG pCO2 POC ABG pO2 ABG pO2 ABG HCO3 ABG O2 Saturation ABG Base Excess ABG Oxyhemoglobin ABG Sodium ABG Chloride ABG Glucose Oxyhemoglobin Carboxyhemoglobin Sodium Potassium Chloride Carbon Dioxide BUN Creatinine Glucose POC Glucose 250 H 217 H 111 H Hemoglobin A1c Ferritin AST ALT Alkaline Phosphatase Lactate Dehydrogenase C-Reactive Protein Total Protein Albumin Arterial Blood Glucose Coronavirus (PCR) 07/01/21 07/01/21 07/01/21 11:06 15:48 21:31 WBC MCH MCHC RDW Lymph % (Auto) Lymph # (Auto) [place] # (Auto) Eos # (Auto) Baso # (Auto) Seg Neutrophils % Seg Neuts % (Manual) Lymphocytes % (Manual) Seg Neutrophils # Seg Neutrophils # Man Lymphocytes # (Manual) D-Dimer ABG pH POC ABG pCO2 POC ABG pO2 ABG pO2 ABG HCO3 ABG O2 Saturation ABG Base Excess ABG Oxyhemoglobin ABG Sodium ABG Chloride ABG Glucose Oxyhemoglobin Carboxyhemoglobin Sodium Potassium Chloride Carbon Dioxide BUN Creatinine Glucose POC Glucose 229 H 239 H 199 H Hemoglobin A1c Ferritin AST ALT Alkaline Phosphatase Lactate Dehydrogenase C-Reactive Protein Total Protein Albumin Arterial Blood Glucose Coronavirus (PCR) 07/02/21 07/02/21 07/02/21 11:50 16:44 21:49 WBC MCH MCHC RDW Lymph % (Auto) Lymph # (Auto) [place] # (Auto) Eos # (Auto) Baso # (Auto) Seg Neutrophils % Seg Neuts % (Manual) Lymphocytes % (Manual) Seg Neutrophils # Seg Neutrophils # Man Lymphocytes # (Manual) D-Dimer ABG pH POC ABG pCO2 POC ABG pO2 ABG pO2 ABG HCO3 ABG O2 Saturation ABG Base Excess ABG Oxyhemoglobin ABG Sodium ABG Chloride ABG Glucose Oxyhemoglobin Carboxyhemoglobin Sodium Potassium Chloride Carbon Dioxide BUN Creatinine Glucose POC Glucose 230 H 203 H 197 H Hemoglobin A1c Ferritin AST ALT Alkaline Phosphatase Lactate Dehydrogenase C-Reactive Protein Total Protein Albumin Arterial Blood Glucose Coronavirus (PCR) 07/03/21 07/03/21 07/03/21 05:46 05:46 11:59 WBC MCH MCHC RDW 19.6 H Lymph % (Auto) Lymph # (Auto) [place] # (Auto) Eos # (Auto) Baso # (Auto) Seg Neutrophils % Seg Neuts % (Manual) Lymphocytes % (Manual) Seg Neutrophils # Seg Neutrophils # Man Lymphocytes # (Manual) D-Dimer ABG pH POC ABG pCO2 POC ABG pO2 ABG pO2 ABG HCO3 ABG O2 Saturation ABG Base Excess ABG Oxyhemoglobin ABG Sodium ABG Chloride ABG Glucose Oxyhemoglobin Carboxyhemoglobin Sodium Potassium 3.2 L Chloride Carbon Dioxide BUN Creatinine 0.3 L Glucose POC Glucose 145 H Hemoglobin A1c Ferritin AST ALT Alkaline Phosphatase Lactate Dehydrogenase C-Reactive Protein Total Protein Albumin Arterial Blood Glucose Coronavirus (PCR) 07/03/21 07/03/21 07/04/21 16:40 22:00 06:35 WBC MCH MCHC RDW Lymph % (Auto) Lymph # (Auto) [place] # (Auto) Eos # (Auto) Baso # (Auto) Seg Neutrophils % Seg Neuts % (Manual) Lymphocytes % (Manual) Seg Neutrophils # Seg Neutrophils # Man Lymphocytes # (Manual) D-Dimer ABG pH POC ABG pCO2 POC ABG pO2 ABG pO2 ABG HCO3 ABG O2 Saturation ABG Base Excess ABG Oxyhemoglobin ABG Sodium ABG Chloride ABG Glucose Oxyhemoglobin Carboxyhemoglobin Sodium Potassium Chloride Carbon Dioxide BUN Creatinine 0.3 L Glucose 118 H POC Glucose 176 H 127 H Hemoglobin A1c Ferritin AST ALT Alkaline Phosphatase Lactate Dehydrogenase C-Reactive Protein Total Protein Albumin Arterial Blood Glucose Coronavirus (PCR) 07/04/21 07/04/21 07/05/21 12:30 16:38 08:37 WBC MCH MCHC RDW Lymph % (Auto) Lymph # (Auto) [place] # (Auto) Eos # (Auto) Baso # (Auto) Seg Neutrophils % Seg Neuts % (Manual) Lymphocytes % (Manual) Seg Neutrophils # Seg Neutrophils # Man Lymphocytes # (Manual) D-Dimer ABG pH POC ABG pCO2 POC ABG pO2 ABG pO2 ABG HCO3 ABG O2 Saturation ABG Base Excess ABG Oxyhemoglobin ABG Sodium ABG Chloride ABG Glucose Oxyhemoglobin Carboxyhemoglobin Sodium Potassium Chloride Carbon Dioxide BUN Creatinine Glucose POC Glucose 162 H 205 H 115 H Hemoglobin A1c Ferritin AST ALT Alkaline Phosphatase Lactate Dehydrogenase C-Reactive Protein Total Protein Albumin Arterial Blood Glucose Coronavirus (PCR) 07/05/21 07/05/21 07/05/21 10:57 16:42 21:14 WBC MCH MCHC RDW Lymph % (Auto) Lymph # (Auto) [place] # (Auto) Eos # (Auto) Baso # (Auto) Seg Neutrophils % Seg Neuts % (Manual) Lymphocytes % (Manual) Seg Neutrophils # Seg Neutrophils # Man Lymphocytes # (Manual) D-Dimer ABG pH POC ABG pCO2 POC ABG pO2 ABG pO2 ABG HCO3 ABG O2 Saturation ABG Base Excess ABG Oxyhemoglobin ABG Sodium ABG Chloride ABG Glucose Oxyhemoglobin Carboxyhemoglobin Sodium Potassium Chloride Carbon Dioxide BUN Creatinine Glucose POC Glucose 151 H 184 H 130 H Hemoglobin A1c Ferritin AST ALT Alkaline Phosphatase Lactate Dehydrogenase C-Reactive Protein Total Protein Albumin Arterial Blood Glucose Coronavirus (PCR) 07/06/21 07/06/21 07/06/21 07:31 11:49 16:46 WBC MCH MCHC RDW Lymph % (Auto) Lymph # (Auto) [place] # (Auto) Eos # (Auto) Baso # (Auto) Seg Neutrophils % Seg Neuts % (Manual) Lymphocytes % (Manual) Seg Neutrophils # Seg Neutrophils # Man Lymphocytes # (Manual) D-Dimer ABG pH POC ABG pCO2 POC ABG pO2 ABG pO2 ABG HCO3 ABG O2 Saturation ABG Base Excess ABG Oxyhemoglobin ABG Sodium ABG Chloride ABG Glucose Oxyhemoglobin Carboxyhemoglobin Sodium Potassium Chloride Carbon Dioxide BUN Creatinine Glucose POC Glucose 106 H 173 H 205 H Hemoglobin A1c Ferritin AST ALT Alkaline Phosphatase Lactate Dehydrogenase C-Reactive Protein Total Protein Albumin Arterial Blood Glucose Coronavirus (PCR) 07/06/21 07/07/21 07/07/21 21:38 06:00 06:00 WBC 16.1 H MCH MCHC RDW 18.8 H Lymph % (Auto) Lymph # (Auto) [place] # (Auto) 1.1 H Eos # (Auto) Baso # (Auto) 0.2 H Seg Neutrophils % 74.9 H Seg Neuts % (Manual) Lymphocytes % (Manual) Seg Neutrophils # 12.1 H Seg Neutrophils # Man Lymphocytes # (Manual) D-Dimer ABG pH POC ABG pCO2 POC ABG pO2 ABG pO2 ABG HCO3 ABG O2 Saturation ABG Base Excess ABG Oxyhemoglobin ABG Sodium ABG Chloride ABG Glucose Oxyhemoglobin Carboxyhemoglobin Sodium Potassium 3.5 L D Chloride Carbon Dioxide BUN 6 L Creatinine < 0.2 L Glucose 106 H POC Glucose 120 H Hemoglobin A1c Ferritin AST ALT Alkaline Phosphatase Lactate Dehydrogenase C-Reactive Protein Total Protein Albumin Arterial Blood Glucose Coronavirus (PCR) 07/07/21 07/07/21 07/07/21 07:10 11:53 15:53 WBC MCH MCHC RDW Lymph % (Auto) Lymph # (Auto) [place] # (Auto) Eos # (Auto) Baso # (Auto) Seg Neutrophils % Seg Neuts % (Manual) Lymphocytes % (Manual) Seg Neutrophils # Seg Neutrophils # Man Lymphocytes # (Manual) D-Dimer ABG pH POC ABG pCO2 POC ABG pO2 ABG pO2 ABG HCO3 ABG O2 Saturation ABG Base Excess ABG Oxyhemoglobin ABG Sodium ABG Chloride ABG Glucose Oxyhemoglobin Carboxyhemoglobin Sodium Potassium Chloride Carbon Dioxide BUN Creatinine Glucose POC Glucose 132 H 169 H 242 H Hemoglobin A1c Ferritin AST ALT Alkaline Phosphatase Lactate Dehydrogenase C-Reactive Protein Total Protein Albumin Arterial Blood Glucose Coronavirus (PCR) 07/07/21 07/08/21 07/08/21 21:41 08:09 12:20 WBC MCH MCHC RDW Lymph % (Auto) Lymph # (Auto) [place] # (Auto) Eos # (Auto) Baso # (Auto) Seg Neutrophils % Seg Neuts % (Manual) Lymphocytes % (Manual) Seg Neutrophils # Seg Neutrophils # Man Lymphocytes # (Manual) D-Dimer ABG pH POC ABG pCO2 POC ABG pO2 ABG pO2 ABG HCO3 ABG O2 Saturation ABG Base Excess ABG Oxyhemoglobin ABG Sodium ABG Chloride ABG Glucose Oxyhemoglobin Carboxyhemoglobin Sodium Potassium Chloride Carbon Dioxide BUN Creatinine Glucose POC Glucose 128 H 132 H 179 H Hemoglobin A1c Ferritin AST ALT Alkaline Phosphatase Lactate Dehydrogenase C-Reactive Protein Total Protein Albumin Arterial Blood Glucose Coronavirus (PCR) 07/08/21 07/08/21 07/08/21 16:37 21:45 22:44 WBC MCH MCHC RDW Lymph % (Auto) Lymph # (Auto) [place] # (Auto) Eos # (Auto) Baso # (Auto) Seg Neutrophils % Seg Neuts % (Manual) Lymphocytes % (Manual) Seg Neutrophils # Seg Neutrophils # Man Lymphocytes # (Manual) D-Dimer ABG pH POC ABG pCO2 POC ABG pO2 ABG pO2 ABG HCO3 ABG O2 Saturation ABG Base Excess ABG Oxyhemoglobin ABG Sodium ABG Chloride ABG Glucose Oxyhemoglobin Carboxyhemoglobin Sodium Potassium Chloride Carbon Dioxide BUN Creatinine Glucose POC Glucose 192 H 51 L 137 H Hemoglobin A1c Ferritin AST ALT Alkaline Phosphatase Lactate Dehydrogenase C-Reactive Protein Total Protein Albumin Arterial Blood Glucose Coronavirus (PCR) 07/09/21 07/09/21 07/09/21 04:45 04:45 04:45 WBC MCH MCHC RDW 18.3 H Lymph % (Auto) Lymph # (Auto) [place] # (Auto) Eos # (Auto) Baso # (Auto) Seg Neutrophils % Seg Neuts % (Manual) 82.0 H Lymphocytes % (Manual) 13.0 L Seg Neutrophils # Seg Neutrophils # Man 7.8 H Lymphocytes # (Manual) D-Dimer 638.35 H ABG pH POC ABG pCO2 POC ABG pO2 ABG pO2 ABG HCO3 ABG O2 Saturation ABG Base Excess ABG Oxyhemoglobin ABG Sodium ABG Chloride ABG Glucose Oxyhemoglobin Carboxyhemoglobin Sodium Potassium Chloride 96.9 L Carbon Dioxide 35 H BUN Creatinine 0.2 L Glucose 135 H POC Glucose Hemoglobin A1c Ferritin AST ALT Alkaline Phosphatase Lactate Dehydrogenase C-Reactive Protein 4.30 H Total Protein Albumin Arterial Blood Glucose Coronavirus (PCR) 07/09/21 07/09/21 07/09/21 05:19 07:36 11:16 WBC MCH MCHC RDW Lymph % (Auto) Lymph # (Auto) [place] # (Auto) Eos # (Auto) Baso # (Auto) Seg Neutrophils % Seg Neuts % (Manual) Lymphocytes % (Manual) Seg Neutrophils # Seg Neutrophils # Man Lymphocytes # (Manual) D-Dimer ABG pH POC ABG pCO2 POC ABG pO2 ABG pO2 ABG HCO3 ABG O2 Saturation ABG Base Excess ABG Oxyhemoglobin ABG Sodium ABG Chloride ABG Glucose Oxyhemoglobin Carboxyhemoglobin Sodium Potassium Chloride Carbon Dioxide BUN Creatinine Glucose POC Glucose 135 H 148 H 212 H Hemoglobin A1c Ferritin AST ALT Alkaline Phosphatase Lactate Dehydrogenase C-Reactive Protein Total Protein Albumin Arterial Blood Glucose Coronavirus (PCR) 07/09/21 07/09/21 07/10/21 15:21 21:12 05:40 WBC MCH MCHC RDW Lymph % (Auto) Lymph # (Auto) [place] # (Auto) Eos # (Auto) Baso # (Auto) Seg Neutrophils % Seg Neuts % (Manual) Lymphocytes % (Manual) Seg Neutrophils # Seg Neutrophils # Man Lymphocytes # (Manual) D-Dimer ABG pH POC ABG pCO2 POC ABG pO2 ABG pO2 ABG HCO3 ABG O2 Saturation ABG Base Excess ABG Oxyhemoglobin ABG Sodium ABG Chloride ABG Glucose Oxyhemoglobin Carboxyhemoglobin Sodium Potassium 3.3 L Chloride 95.1 L Carbon Dioxide 39 H BUN Creatinine 0.2 L Glucose 122 H POC Glucose 128 H 196 H Hemoglobin A1c Ferritin AST ALT Alkaline Phosphatase Lactate Dehydrogenase C-Reactive Protein Total Protein Albumin Arterial Blood Glucose Coronavirus (PCR) 07/10/21 07/10/21 07/10/21 07:38 11:15 16:29 WBC MCH MCHC RDW Lymph % (Auto) Lymph # (Auto) [place] # (Auto) Eos # (Auto) Baso # (Auto) Seg Neutrophils % Seg Neuts % (Manual) Lymphocytes % (Manual) Seg Neutrophils # Seg Neutrophils # Man Lymphocytes # (Manual) D-Dimer ABG pH POC ABG pCO2 POC ABG pO2 ABG pO2 ABG HCO3 ABG O2 Saturation ABG Base Excess ABG Oxyhemoglobin ABG Sodium ABG Chloride ABG Glucose Oxyhemoglobin Carboxyhemoglobin Sodium Potassium Chloride Carbon Dioxide BUN Creatinine Glucose POC Glucose 128 H 175 H 174 H Hemoglobin A1c Ferritin AST ALT Alkaline Phosphatase Lactate Dehydrogenase C-Reactive Protein Total Protein Albumin Arterial Blood Glucose Coronavirus (PCR) 07/10/21 07/11/21 07/11/21 20:49 05:50 12:08 WBC MCH MCHC RDW Lymph % (Auto) Lymph # (Auto) [place] # (Auto) Eos # (Auto) Baso # (Auto) Seg Neutrophils % Seg Neuts % (Manual) Lymphocytes % (Manual) Seg Neutrophils # Seg Neutrophils # Man Lymphocytes # (Manual) D-Dimer ABG pH POC ABG pCO2 POC ABG pO2 ABG pO2 ABG HCO3 ABG O2 Saturation ABG Base Excess ABG Oxyhemoglobin ABG Sodium ABG Chloride ABG Glucose Oxyhemoglobin Carboxyhemoglobin Sodium Potassium Chloride 97.3 L Carbon Dioxide 34 H BUN Creatinine 0.2 L Glucose 109 H POC Glucose 142 H 220 H Hemoglobin A1c Ferritin AST ALT Alkaline Phosphatase Lactate Dehydrogenase C-Reactive Protein Total Protein Albumin Arterial Blood Glucose Coronavirus (PCR) 07/11/21 07/11/21 07/12/21 17:09 21:55 07:36 WBC MCH MCHC RDW Lymph % (Auto) Lymph # (Auto) [place] # (Auto) Eos # (Auto) Baso # (Auto) Seg Neutrophils % Seg Neuts % (Manual) Lymphocytes % (Manual) Seg Neutrophils # Seg Neutrophils # Man Lymphocytes # (Manual) D-Dimer ABG pH POC ABG pCO2 POC ABG pO2 ABG pO2 ABG HCO3 ABG O2 Saturation ABG Base Excess ABG Oxyhemoglobin ABG Sodium ABG Chloride ABG Glucose Oxyhemoglobin Carboxyhemoglobin Sodium Potassium Chloride Carbon Dioxide BUN Creatinine Glucose POC Glucose 219 H 124 H 114 H Hemoglobin A1c Ferritin AST ALT Alkaline Phosphatase Lactate Dehydrogenase C-Reactive Protein Total Protein Albumin Arterial Blood Glucose Coronavirus (PCR) 07/12/21 07/12/21 07/12/21 11:08 15:43 22:20 WBC MCH MCHC RDW Lymph % (Auto) Lymph # (Auto) [place] # (Auto) Eos # (Auto) Baso # (Auto) Seg Neutrophils % Seg Neuts % (Manual) Lymphocytes % (Manual) Seg Neutrophils # Seg Neutrophils # Man Lymphocytes # (Manual) D-Dimer ABG pH POC ABG pCO2 POC ABG pO2 ABG pO2 ABG HCO3 ABG O2 Saturation ABG Base Excess ABG Oxyhemoglobin ABG Sodium ABG Chloride ABG Glucose Oxyhemoglobin Carboxyhemoglobin Sodium Potassium Chloride Carbon Dioxide BUN Creatinine Glucose POC Glucose 195 H 276 H 189 H Hemoglobin A1c Ferritin AST ALT Alkaline Phosphatase Lactate Dehydrogenase C-Reactive Protein Total Protein Albumin Arterial Blood Glucose Coronavirus (PCR) 07/13/21 07/13/21 07/13/21 08:01 08:08 10:17 WBC MCH MCHC RDW Lymph % (Auto) Lymph # (Auto) [place] # (Auto) Eos # (Auto) Baso # (Auto) Seg Neutrophils % Seg Neuts % (Manual) Lymphocytes % (Manual) Seg Neutrophils # Seg Neutrophils # Man Lymphocytes # (Manual) D-Dimer ABG pH POC ABG pCO2 POC ABG pO2 ABG pO2 ABG HCO3 ABG O2 Saturation ABG Base Excess ABG Oxyhemoglobin ABG Sodium ABG Chloride ABG Glucose Oxyhemoglobin Carboxyhemoglobin Sodium Potassium Chloride 94.4 L Carbon Dioxide 34 H BUN Creatinine 0.3 L Glucose 149 H POC Glucose 132 H 265 H Hemoglobin A1c Ferritin AST ALT Alkaline Phosphatase Lactate Dehydrogenase C-Reactive Protein Total Protein Albumin Arterial Blood Glucose Coronavirus (PCR) 07/13/21 07/13/21 07/14/21 17:58 21:41 07:34 WBC MCH MCHC RDW Lymph % (Auto) Lymph # (Auto) [place] # (Auto) Eos # (Auto) Baso # (Auto) Seg Neutrophils % Seg Neuts % (Manual) Lymphocytes % (Manual) Seg Neutrophils # Seg Neutrophils # Man Lymphocytes # (Manual) D-Dimer ABG pH POC ABG pCO2 POC ABG pO2 ABG pO2 ABG HCO3 ABG O2 Saturation ABG Base Excess ABG Oxyhemoglobin ABG Sodium ABG Chloride ABG Glucose Oxyhemoglobin Carboxyhemoglobin Sodium Potassium Chloride Carbon Dioxide BUN Creatinine Glucose POC Glucose 217 H 223 H 116 H Hemoglobin A1c Ferritin AST ALT Alkaline Phosphatase Lactate Dehydrogenase C-Reactive Protein Total Protein Albumin Arterial Blood Glucose Coronavirus (PCR) 07/14/21 07/14/21 07/14/21 10:50 17:33 20:51 WBC MCH MCHC RDW Lymph % (Auto) Lymph # (Auto) [place] # (Auto) Eos # (Auto) Baso # (Auto) Seg Neutrophils % Seg Neuts % (Manual) Lymphocytes % (Manual) Seg Neutrophils # Seg Neutrophils # Man Lymphocytes # (Manual) D-Dimer ABG pH POC ABG pCO2 POC ABG pO2 ABG pO2 ABG HCO3 ABG O2 Saturation ABG Base Excess ABG Oxyhemoglobin ABG Sodium ABG Chloride ABG Glucose Oxyhemoglobin Carboxyhemoglobin Sodium Potassium Chloride Carbon Dioxide BUN Creatinine Glucose POC Glucose 191 H 173 H 132 H Hemoglobin A1c Ferritin AST ALT Alkaline Phosphatase Lactate Dehydrogenase C-Reactive Protein Total Protein Albumin Arterial Blood Glucose Coronavirus (PCR) 07/15/21 07/15/21 07/15/21 04:00 07:59 12:31 WBC MCH MCHC RDW Lymph % (Auto) Lymph # (Auto) [place] # (Auto) Eos # (Auto) Baso # (Auto) Seg Neutrophils % Seg Neuts % (Manual) Lymphocytes % (Manual) Seg Neutrophils # Seg Neutrophils # Man Lymphocytes # (Manual) D-Dimer ABG pH POC ABG pCO2 POC ABG pO2 ABG pO2 ABG HCO3 ABG O2 Saturation ABG Base Excess ABG Oxyhemoglobin ABG Sodium ABG Chloride ABG Glucose Oxyhemoglobin Carboxyhemoglobin Sodium Potassium Chloride 96.0 L Carbon Dioxide 32 H BUN Creatinine 0.3 L Glucose 208 H POC Glucose 117 H 195 H Hemoglobin A1c Ferritin AST ALT Alkaline Phosphatase Lactate Dehydrogenase C-Reactive Protein Total Protein Albumin Arterial Blood Glucose Coronavirus (PCR) 07/15/21 07/15/21 07/16/21 18:00 20:57 04:40 WBC MCH MCHC RDW 17.1 H Lymph % (Auto) Lymph # (Auto) [place] # (Auto) Eos # (Auto) Baso # (Auto) Seg Neutrophils % Seg Neuts % (Manual) Lymphocytes % (Manual) Seg Neutrophils # Seg Neutrophils # Man Lymphocytes # (Manual) D-Dimer ABG pH POC ABG pCO2 POC ABG pO2 ABG pO2 ABG HCO3 ABG O2 Saturation ABG Base Excess ABG Oxyhemoglobin ABG Sodium ABG Chloride ABG Glucose Oxyhemoglobin Carboxyhemoglobin Sodium Potassium Chloride Carbon Dioxide BUN Creatinine Glucose POC Glucose 217 H 111 H Hemoglobin A1c Ferritin AST ALT Alkaline Phosphatase Lactate Dehydrogenase C-Reactive Protein Total Protein Albumin Arterial Blood Glucose Coronavirus (PCR) 07/16/21 07/16/21 07/16/21 04:40 07:08 11:11 WBC MCH MCHC RDW Lymph % (Auto) Lymph # (Auto) [place] # (Auto) Eos # (Auto) Baso # (Auto) Seg Neutrophils % Seg Neuts % (Manual) Lymphocytes % (Manual) Seg Neutrophils # Seg Neutrophils # Man Lymphocytes # (Manual) D-Dimer ABG pH POC ABG pCO2 POC ABG pO2 ABG pO2 ABG HCO3 ABG O2 Saturation ABG Base Excess ABG Oxyhemoglobin ABG Sodium ABG Chloride ABG Glucose Oxyhemoglobin Carboxyhemoglobin Sodium Potassium 3.4 L Chloride 94.6 L Carbon Dioxide 36 H BUN Creatinine < 0.2 L Glucose 101 H POC Glucose 118 H 184 H Hemoglobin A1c Ferritin AST ALT Alkaline Phosphatase Lactate Dehydrogenase C-Reactive Protein Total Protein Albumin Arterial Blood Glucose Coronavirus (PCR) 07/16/21 07/16/21 07/17/21 17:29 22:01 08:10 WBC MCH MCHC RDW Lymph % (Auto) Lymph # (Auto) [place] # (Auto) Eos # (Auto) Baso # (Auto) Seg Neutrophils % Seg Neuts % (Manual) Lymphocytes % (Manual) Seg Neutrophils # Seg Neutrophils # Man Lymphocytes # (Manual) D-Dimer ABG pH POC ABG pCO2 POC ABG pO2 ABG pO2 ABG HCO3 ABG O2 Saturation ABG Base Excess ABG Oxyhemoglobin ABG Sodium ABG Chloride ABG Glucose Oxyhemoglobin Carboxyhemoglobin Sodium Potassium Chloride Carbon Dioxide BUN Creatinine Glucose POC Glucose 200 H 147 H 118 H Hemoglobin A1c Ferritin AST ALT Alkaline Phosphatase Lactate Dehydrogenase C-Reactive Protein Total Protein Albumin Arterial Blood Glucose Coronavirus (PCR) 07/17/21 07/17/21 07/17/21 11:38 16:24 21:13 WBC MCH MCHC RDW Lymph % (Auto) Lymph # (Auto) [place] # (Auto) Eos # (Auto) Baso # (Auto) Seg Neutrophils % Seg Neuts % (Manual) Lymphocytes % (Manual) Seg Neutrophils # Seg Neutrophils # Man Lymphocytes # (Manual) D-Dimer ABG pH POC ABG pCO2 POC ABG pO2 ABG pO2 ABG HCO3 ABG O2 Saturation ABG Base Excess ABG Oxyhemoglobin ABG Sodium ABG Chloride ABG Glucose Oxyhemoglobin Carboxyhemoglobin Sodium Potassium Chloride Carbon Dioxide BUN Creatinine Glucose POC Glucose 151 H 268 H 115 H Hemoglobin A1c Ferritin AST ALT Alkaline Phosphatase Lactate Dehydrogenase C-Reactive Protein Total Protein Albumin Arterial Blood Glucose Coronavirus (PCR) 07/18/21 07/18/21 07/18/21 07:58 12:29 20:24 WBC MCH MCHC RDW Lymph % (Auto) Lymph # (Auto) [place] # (Auto) Eos # (Auto) Baso # (Auto) Seg Neutrophils % Seg Neuts % (Manual) Lymphocytes % (Manual) Seg Neutrophils # Seg Neutrophils # Man Lymphocytes # (Manual) D-Dimer ABG pH POC ABG pCO2 POC ABG pO2 ABG pO2 ABG HCO3 ABG O2 Saturation ABG Base Excess ABG Oxyhemoglobin ABG Sodium ABG Chloride ABG Glucose Oxyhemoglobin Carboxyhemoglobin Sodium Potassium Chloride Carbon Dioxide BUN Creatinine Glucose POC Glucose 135 H 139 H 130 H Hemoglobin A1c Ferritin AST ALT Alkaline Phosphatase Lactate Dehydrogenase C-Reactive Protein Total Protein Albumin Arterial Blood Glucose Coronavirus (PCR) 07/19/21 07/19/21 07/19/21 06:55 06:55 07:54 WBC 14.5 H MCH MCHC RDW 17.3 H Lymph % (Auto) 9.6 L Lymph # (Auto) [place] # (Auto) Eos # (Auto) 0.6 H Baso # (Auto) Seg Neutrophils % 80.3 H Seg Neuts % (Manual) Lymphocytes % (Manual) Seg Neutrophils # 11.7 H Seg Neutrophils # Man Lymphocytes # (Manual) D-Dimer ABG pH POC ABG pCO2 67.9 H POC ABG pO2 131.0 H ABG pO2 ABG HCO3 ABG O2 Saturation ABG Base Excess ABG Oxyhemoglobin ABG Sodium ABG Chloride 97.0 L ABG Glucose 133 H Oxyhemoglobin Carboxyhemoglobin Sodium Potassium Chloride 95.3 L Carbon Dioxide 35 H BUN Creatinine < 0.2 L Glucose 138 H POC Glucose Hemoglobin A1c Ferritin AST ALT Alkaline Phosphatase Lactate Dehydrogenase C-Reactive Protein Total Protein Albumin Arterial Blood Glucose 133 H Coronavirus (PCR) 07/19/21 07/19/21 08:10 11:43 WBC MCH MCHC RDW Lymph % (Auto) Lymph # (Auto) [place] # (Auto) Eos # (Auto) Baso # (Auto) Seg Neutrophils % Seg Neuts % (Manual) Lymphocytes % (Manual) Seg Neutrophils # Seg Neutrophils # Man Lymphocytes # (Manual) D-Dimer ABG pH POC ABG pCO2 POC ABG pO2 ABG pO2 ABG HCO3 ABG O2 Saturation ABG Base Excess ABG Oxyhemoglobin ABG Sodium ABG Chloride ABG Glucose Oxyhemoglobin Carboxyhemoglobin Sodium Potassium Chloride Carbon Dioxide BUN Creatinine Glucose POC Glucose 129 H 126 H Hemoglobin A1c Ferritin AST ALT Alkaline Phosphatase Lactate Dehydrogenase C-Reactive Protein Total Protein Albumin Arterial Blood Glucose Coronavirus (PCR)
--- NOTE | 2021-07-19 16:02 | Progress Note ---
Assessment and Plan Assessment and plan: #Acute hypoxic respiratory failure -Transition from high flow to BiPAP after acute respiratory distress this morning. Continuing to wean as tolerated. -Discontinue prednisone per pulmonology. -Pulmonology following, assistance appreciated -Referral sent for LTACH (patient stay 90 days) and rejected x3. -encouraged prone positioning -will assess need for lasix PRN #Heart failure with preserved ejection fraction -TTE: LVEF 55-60% with diastolic dysfunction -will continue to monitor for signs of fluid overload #COVID-19 infection #COVID-19 pneumonia -Continue Covid vitamins #Insulin-dependent type 2 diabetes mellitus -Continue Lantus 15 units daily and sliding scale insulin #Dysuria-resolved #Possible UTI-resolved -Urinalysis ordered 07/09, not collected -s/p Levaquin x3 days #Anxiety -Stable -Continue Xanax #DVT prophylaxis -Lovenox 40 daily #Deconditioning -Will benefit from SNF after prolonged hospital stay, Resolved issues #Sepsis secondary to COVID-19 #Iatrogenic diarrhea #Hypomagnesemia #Hyponatremia #Protein calorie malnutrition Disposition Plan: Continue medical management Total Time Spent with Patient (Minutes): 45-minute History Interval history: The patient acutely desaturated early this morning and was transitioned to BiPAP and transferred to the IMCU for closer monitoring. Hospitalist Physical - Constitutional Vitals: Temp Pulse Resp BP Pulse Ox 97.5 F L 109 H 33 H 124/68 100 07/19/21 12:04 07/19/21 14:20 07/19/21 14:20 07/19/21 14:20 07/19/21 14:20 General appearance: Present: no acute distress, well-nourished, obese, other (Looks tired) - EENT Eyes: Present: PERRL, EOM intact ENT: hearing intact, clear oral mucosa, dentition normal - Neck Neck: Present: supple, normal ROM - Respiratory Respiratory effort: normal, labored Respiratory: bilateral: diminished Details: Currently on BiPAP - Cardiovascular Rhythm: regular Heart Sounds: Present: S1 & S2 - Extremities Extremities: no ischemia, pulses intact, pulses symmetrical, No edema, normal temperature, normal color Peripheral Pulses: within normal limits - Abdominal General gastrointestinal: soft, non-tender, non-distended, normal bowel sounds - Integumentary Integumentary: Present: clear, warm, dry - Psychiatric Psychiatric: appropriate mood/affect, memory intact, cooperative - Neurologic Neurologic: CNII-XII intact, moves all extremities - Allied Health Allied health notes reviewed: nursing Results - Labs CBC & Chem 7: 07/19/21 06:55 07/19/21 06:55 Labs: Laboratory Last Values WBC 14.5 K/mm3 (4.5-11.0) H 07/19/21 06:55 RBC 4.16 M/mm3 (3.65-5.03) 07/19/21 06:55 Hgb 12.9 gm/dl (10.1-14.3) 07/19/21 06:55 Hct 39.6 % (30.3-42.9) 07/19/21 06:55 MCV 95 fl (79-97) 07/19/21 06:55 MCH 31 pg (28-32) 07/19/21 06:55 MCHC 33 % (30-34) 07/19/21 06:55 RDW 17.3 % (13.2-15.2) H 07/19/21 06:55 Plt Count 305 K/mm3 (140-440) 07/19/21 06:55 Lymph % (Auto) 9.6 % (13.4-35.0) L 07/19/21 06:55 Harris % (Auto) 5.3 % (0.0-7.3) 07/19/21 06:55 Eos % (Auto) 4.1 % (0.0-4.3) 07/19/21 06:55 Baso % (Auto) 0.7 % (0.0-1.8) 07/19/21 06:55 Lymph # (Auto) 1.4 K/mm3 (1.2-5.4) 07/19/21 06:55 Harris # (Auto) 0.8 K/mm3 (0.0-0.8) 07/19/21 06:55 Eos # (Auto) 0.6 K/mm3 (0.0-0.4) H 07/19/21 06:55 Baso # (Auto) 0.1 K/mm3 (0.0-0.1) 07/19/21 06:55 Add Manual Diff Complete 07/09/21 04:45 Total Counted 100 07/09/21 04:45 Seg Neutrophils % 80.3 % (40.0-70.0) H 07/19/21 06:55 Seg Neuts % (Manual) 82.0 % (40.0-70.0) H 07/09/21 04:45 Band Neutrophils % 1.0 % 05/12/21 04:05 Lymphocytes % (Manual) 13.0 % (13.4-35.0) L 07/09/21 04:45 Monocytes % (Manual) 3.0 % (0.0-7.3) 07/09/21 04:45 Eosinophils % (Manual) 2.0 % (0.0-4.3) 07/09/21 04:45 Nucleated RBC % Not Reportable 07/09/21 04:45 Seg Neutrophils # 11.7 K/mm3 (1.8-7.7) H 07/19/21 06:55 Seg Neutrophils # Man 7.8 K/mm3 (1.8-7.7) H 07/09/21 04:45 Band Neutrophils # 0.0 K/mm3 07/09/21 04:45 Lymphocytes # (Manual) 1.2 K/mm3 (1.2-5.4) 07/09/21 04:45 Abs React Lymphs (Man) 0.0 K/mm3 07/09/21 04:45 Monocytes # (Manual) 0.3 K/mm3 (0.0-0.8) 07/09/21 04:45 Eosinophils # (Manual) 0.2 K/mm3 (0.0-0.4) 07/09/21 04:45 Basophils # (Manual) 0.0 K/mm3 (0.0-0.1) 07/09/21 04:45 Metamyelocytes # 0.0 K/mm3 07/09/21 04:45 Myelocytes # 0.0 K/mm3 07/09/21 04:45 Promyelocytes # 0.0 K/mm3 07/09/21 04:45 Blast Cells # 0.0 K/mm3 07/09/21 04:45 WBC Morphology Not Reportable 07/09/21 04:45 Hypersegmented Neuts Not Reportable 07/09/21 04:45 Hyposegmented Neuts Not Reportable 07/09/21 04:45 Hypogranular Neuts Not Reportable 07/09/21 04:45 Smudge Cells Not Reportable 07/09/21 04:45 Toxic Granulation Not Reportable 07/09/21 04:45 Toxic Vacuolation Not Reportable 07/09/21 04:45 Dohle Bodies Not Reportable 07/09/21 04:45 Pelger-Huet Anomaly Not Reportable 07/09/21 04:45 Janelle Rods Not Reportable 07/09/21 04:45 Platelet Estimate Consistent w auto 07/09/21 04:45 Clumped Platelets Not Reportable 07/09/21 04:45 Plt Clumps, EDTA Not Reportable 07/09/21 04:45 Large Platelets Not Reportable 07/09/21 04:45 Giant Platelets Rare 07/09/21 04:45 Platelet Satelliting Not Reportable 07/09/21 04:45 Plt Morphology Comment Not Reportable 07/09/21 04:45 RBC Morphology Not Reportable 07/09/21 04:45 Dimorphic RBCs Not Reportable 07/09/21 04:45 Polychromasia Not Reportable 07/09/21 04:45 Hypochromasia Few 07/09/21 04:45 Poikilocytosis Not Reportable 07/09/21 04:45 Anisocytosis Not Reportable 07/09/21 04:45 Microcytosis Not Reportable 07/09/21 04:45 Macrocytosis Not Reportable 07/09/21 04:45 Spherocytes Not Reportable 07/09/21 04:45 Pappenheimer Bodies Not Reportable 07/09/21 04:45 Sickle Cells Not Reportable 07/09/21 04:45 Target Cells Not Reportable 07/09/21 04:45 Tear Drop Cells Not Reportable 07/09/21 04:45 Ovalocytes Not Reportable 07/09/21 04:45 Stomatocytes 1+ 07/09/21 04:45 Helmet Cells Not Reportable 07/09/21 04:45 Ahu[place] Bodies Not Reportable 07/09/21 04:45 [place] Rings Not Reportable 07/09/21 04:45 [place] Cells Not Reportable 07/09/21 04:45 Bite Cells Not Reportable 07/09/21 04:45 Crenated Cell Not Reportable 07/09/21 04:45 Elliptocytes Not Reportable 07/09/21 04:45 Acanthocytes (Spur) Not Reportable 07/09/21 04:45 Rouleaux Not Reportable 07/09/21 04:45 Hemoglobin C Crystals Not Reportable 07/09/21 04:45 Schistocytes Not Reportable 07/09/21 04:45 Malaria parasites Not Reportable 07/09/21 04:45 Justin Bodies Not Reportable 07/09/21 04:45 Hem Pathologist Commnt No 07/09/21 04:45 D-Dimer 638.35 ng/mlDDU (0-234) H 07/09/21 04:45 ABG pH 7.369 (7.320-7.450) 07/19/21 07:54 POC ABG pCO2 67.9 mmHg (32.0-48.0) H 07/19/21 07:54 ABG pCO2 50.2 mm Hg 05/14/21 02:23 POC ABG pO2 131.0 mmHg (83-108) H 07/19/21 07:54 ABG pO2 130.3 mm Hg (80.0-90.0) H 05/14/21 02:23 POC ABG HCO3 38.3 07/19/21 07:54 ABG HCO3 30.6 mmol/L (20.0-26.0) H 05/14/21 02:23 ABG O2 Saturation 99.0 (0-100) 07/19/21 07:54 ABG O2 Content 17.9 (0.0-44) 05/14/21 02:23 POC ABG Base Excess 10.3 07/19/21 07:54 ABG Base Excess 4.9 mmol/L (-2.0-3.0) H 05/14/21 02:23 ABG Hemoglobin 13.5 (12.0-17.5) 07/19/21 07:54 ABG Oxyhemoglobin 97.9 (94-98) 07/19/21 07:54 ABG Carboxyhemoglobin 1.4 % (0.0-5.0) 05/14/21 02:23 ABG Methemoglobin 0.1 (0.0-1.5) 07/19/21 07:54 ABG Sodium 138.5 mmol/L (136.0-145.0) 07/19/21 07:54 ABG Potassium 4.3 mmol/L (3.40-4.50) 07/19/21 07:54 ABG Chloride 97.0 mmol/L (98-107) L 07/19/21 07:54 ABG Glucose 133 mg/dL (65-95) H 07/19/21 07:54 Oxyhemoglobin 96.5 % (95.0-99.0) 05/14/21 02:23 Carboxyhemoglobin 1.0 (0.5-1.5) 07/19/21 07:54 FiO2 90 % 05/14/21 02:23 FiO2 % 100.0 07/19/21 07:54 Sodium 139 mmol/L (137-145) 07/19/21 06:55 Potassium 4.2 mmol/L (3.6-5.0) D 07/19/21 06:55 Chloride 95.3 mmol/L (98-107) L 07/19/21 06:55 Carbon Dioxide 35 mmol/L (22-30) H 07/19/21 06:55 Anion Gap 13 mmol/L 07/19/21 06:55 BUN 7 mg/dL (7-17) 07/19/21 06:55 Creatinine < 0.2 mg/dL (0.6-1.2) L 07/19/21 06:55 Estimated GFR > 60 ml/min 07/19/21 06:55 BUN/Creatinine Ratio 35 % 07/19/21 06:55 Glucose 138 mg/dL (65-100) H 07/19/21 06:55 POC Glucose 126 mg/dL (70-105) H 07/19/21 11:43 Hemoglobin A1c 8.5 % (4-6) H 04/18/21 07:36 Calcium 9.2 mg/dL (8.4-10.2) 07/19/21 06:55 Phosphorus 3.60 mg/dL (2.5-4.5) 07/09/21 04:45 Magnesium 1.90 mg/dL (1.7-2.3) 07/09/21 04:45 Ferritin 155.9 ng/mL (10.0-200.0) 07/09/21 04:45 Total Bilirubin 0.30 mg/dL (0.1-1.2) 06/28/21 05:43 AST 19 units/L (5-40) 06/28/21 05:43 ALT 63 units/L (7-56) H 06/28/21 05:43 Alkaline Phosphatase 61 units/L (35-129) 06/28/21 05:43 Lactate Dehydrogenase 475 units/L (91-180) H 06/05/21 05:26 C-Reactive Protein 4.30 mg/dL (0.00-1.30) H 07/09/21 04:45 NT-Pro-B Natriuret Pep 59.45 pg/mL (0-450) 07/07/21 13:40 Total Protein 6.5 g/dL (6.3-8.2) 06/28/21 05:43 Albumin 3.3 g/dL (3.9-5) L 06/28/21 05:43 Albumin/Globulin Ratio 1.0 % 06/28/21 05:43 Triglycerides < 9 mg/dL (2-149) 05/03/21 04:30 Procalcitonin < 0.05 ng/mL (<0.15) 05/23/21 09:50 Arterial Blood Glucose 133 mg/dL (65-95) H 07/19/21 07:54 Arterial Blood Ionized Calcium 4.9 mg/dL (4.6-5.3) 05/03/21 04:49 Coronavirus (PCR) Positive (Negative) A 06/05/21 08:30 Amos/IV: Voiding Method External Female Catheter Active Medications - Current Medications Current Medications: Generic Name Dose Route Start Last Admin Trade Name Freq PRN Reason Stop Dose Admin Acetaminophen 650 mg 07/02/21 17:48 07/18/21 23:08 Acetaminophen 325 Mg Tab PO 650 mg Q4H PRN Administration Pain, Mild (1-3) Albuterol 2.5 mg 04/16/21 13:39 04/21/21 20:39 Albuterol 2.5 Mg/3 Ml Nebu IH 2.5 mg Q4HRT PRN Administration Shortness Of Breath Alprazolam 2 mg 07/04/21 12:00 07/19/21 10:30 Alprazolam 1 Mg Tab PO Not Given BID TUTU Ascorbic Acid 500 mg 04/24/21 10:00 07/19/21 10:31 Ascorbic Acid 500 Mg Tab PO Not Given QDAY TUTU Cholecalciferol 1,000 unit 04/17/21 10:00 07/19/21 10:31 Cholecalciferol (Vit D3) 1000 Unit (25 Mcg) Tab PO Not Given QDAY ON LICENSE OF [facility] Enoxaparin Sodium 40 mg 05/19/21 22:00 07/18/21 23:10 Enoxaparin 40 Mg/0.4 Ml Inj SUB-Q 40 mg QDAY@2200 ON LICENSE OF [facility] Administration Protocol Ibuprofen 600 mg 07/11/21 11:00 07/16/21 22:03 Ibuprofen 600 Mg Tab PO 600 mg Q6H PRN Administration Ear Pain Insulin Glargine 15 units 06/25/21 10:00 07/19/21 10:32 Insulin Glargine 100 Units/Ml SUB-Q Not Given DAILY ON LICENSE OF [facility] Insulin Human Lispro 0 unit 05/18/21 12:00 07/19/21 13:43 Insulin Lispro 100 Unit/Ml SUB-Q Not Given ACHS ON LICENSE OF [facility] Protocol Ondansetron HCl 4 mg 04/16/21 14:00 05/30/21 10:07 Ondansetron 4 Mg/2 Ml Inj IV 4 mg Q8H PRN Administration Nausea And Vomiting Polyethylene Glycol 17 gm 07/16/21 20:00 Polyethylene Glycol 3350 17 Gm Powder PO QDAY PRN Constipation Sodium Chloride 10 ml 04/16/21 13:39 07/15/21 21:07 Sodium Chloride 0.9% 10 Ml Flush Syringe IV 10 ml PRN PRN Administration LINE FLUSH Zinc Sulfate 220 mg 04/16/21 22:00 07/19/21 10:30 Zinc Sulfate 220 Mg Cap PO Not Given BID ON LICENSE OF [facility] Zolpidem Tartrate 10 mg 05/26/21 08:56 07/16/21 22:04 Zolpidem 5 Mg Tab PO 10 mg QHS PRN Administration Insomnia Nutrition/Malnutrition Assess - Dietary Evaluation Nutrition/Malnutrition Findings: Nutrition Notes Start: 04/23/21 07:41 Freq: Status: Active Protocol: Document 07/03/21 16:54 GB (Rec: 07/03/21 17:11 GB [id number]) Nutrition Notes Initial or Follow up Reassessment Current Diagnosis Respiratory Failure Other Pertinent Diagnosis oral thrush, COVID-19 pneu Current Diet consistent carbohydrate Labs/Tests 07/03: creatinine 0.3, K 3.2 Pertinent Medications Vit C, Vit D3, D5 (PRN), Prednisone, NaCl, Zn Sulfate Height 4 ft 11.84 in Weight 60.3 kg [place] Body Weight (kg) 45.09 BMI 26.1 Weight change and time frame 04/16/21: 74.843kg 05/17/21: 68.1kg 06/16/21: 60.3kg change of -14.54kg for -19.43% in 60 days. Per MD note: pt has been diuresed thorughout stay. Weight Status Overweight Subjective/Other Information MD notes 07/03: pt showing improvement, prednisone weaning down, possible weaning of O2. Last BM: 07/02 PO intake recorded at 50-100% Percent of energy/protein needs met: PO intake of meals meet 75% or greater of EEN Burn Absent Trauma Absent GI Symptoms None Food Allergy No Skin Integrity/Comment skin tear rt/lt buttocks Current % PO Good (75-100%) Minimum of two criteria No #3 Nutrition Diagnosis No nutrition diagnosis at this time Etiology respiratory failure As Evidenced by Signs and Symptoms recovering, good po, weight loss r/t diurese therapy #2 Nutrition Diagnosis Malnutrition Comments: Wt loss due to diurese for most of stay. PO intake is recorded at 75- 100% Etiology acute illness As Evidenced by Signs and Symptoms <50% EER in >5 days, >5% wt loss in 1 month Diagnosis Progress(for reassessment Resolved documentation) #1 Nutrition Diagnosis Inadequate oral intake Etiology ARF As Evidenced by Signs and Symptoms pt continues to meet 100%/93% of kcal/protein needs Diagnosis Progress(for reassessment Resolved documentation) Is patient on ventilator? No Is Patient Ambulatory and/or Out of Bed Yes REE-([facility]-ambulatory/OOB) [ 1491.022 [id number]] Kcal/Kg value to use for calculation 25 Approximate Energy Requirements Using 1508 kcal/Kg Calculation Used for Recommendations Kcal/kg Additional Notes Pro needs 1-1.2g/kg @ 60k -72g/day Fluid needs 1ml/kcal or per MD Nutrition Intervention Change Diet Order: continue Nutrition Support: n/a Add Supplement/Snack (indicate name/kcal n/a /protein ) Goal #1 PO intake of meals to be 75% or greater daily for LOS Goal #2 Weight to stabilize +/-3% current weight for LOS Follow-Up By: 08/07/21 Additional Comments f/u: po intake, weight - Attestation Statement I have reviewed and agreed w/ Malnutrition eval & tx plan: Yes
[2021-07-19] MEDS: IBUPROFEN 600 MG TAB PO PRN (20:06)
[2021-07-19] MEDS: ZOLPIDEM 5 MG TAB PO PRN (20:08)
[2021-07-19] MEDS: ENOXAPARIN 40 MG/0.4 ML INJ SUB-Q SCH (21:12)
[2021-07-20 04:53] LABS: Basophils # (Auto) 0.1 K/mm3 (0.0-0.1); Basophils % (Auto) 0.6 % (0.0-1.8); Eosinophils # (Auto) 0.6 K/mm3 (0.0-0.4); Eosinophils % (Auto) 6.3 % (0.0-4.3); Hematocrit 37.5 % (30.3-42.9); Hemoglobin 12.2 gm/dl (10.1-14.3); Lymphocytes # (Auto) 1.4 K/mm3 (1.2-5.4); Mean Corpuscular HGB Conc 33 % (30-34); Mean Corpuscular Volume 96 fl (79-97); Monocytes # (Auto) 0.9 K/mm3 (0.0-0.8); Monocytes % (Auto) 8.9 % (0.0-7.3); Platelet Count 346 K/mm3 (140-440); Red Blood Count 3.93 M/mm3 (3.65-5.03)
[2021-07-20 05:04] LABS: Alanine Aminotransferase 40 units/L (7-56); Albumin 3.2 g/dL (3.9-5); Blood Urea Nitrogen 9 mg/dL (7-17); Calcium 9.6 mg/dL (8.4-10.2); Hemolysis Index 2
[2021-07-20 05:07] LABS: BUN/Creatinine Ratio 45
[2021-07-20] MEDS: SODIUM CHLORIDE 0.45% 1000 ML 1,000 ML IV SCH ×2 (06:27→21:02)
[2021-07-20] MEDS: CHOLECALCIFEROL (VIT D3) 1000 UNIT (25 mcg) TAB PO SCH (11:06)
[2021-07-20] MEDS: ASCORBIC ACID 500 MG TAB PO SCH (11:06)
[2021-07-20] MEDS: ALPRAZolam 1 MG TAB PO SCH ×3 (11:06→21:08)
[2021-07-20] MEDS: ZINC SULFATE 220 MG CAP PO SCH ×2 (11:07→21:08)
--- NOTE | 2021-07-20 11:28 | Progress Note ---
Assessment and Plan 50 y/o female with acute respiratory failure secondary to COVID19 pneumonia. 07/20/21: Give patient a break off of bipap and attempt high flow nasal cannula today. Will feed. Suggest keeping bipap therapy at night. Monitor fluid balance and BP. May need more lasix. 07/19/21: This was not related to stopping steroids as hemodynamically she is stable. Her sats is very good on 90%, I dropped to 85 and will continue to wean. She speaks no liberian and is very anxious. This adds to her work of breathing. COntinue to wean FiO2 as tolerated. Will give periodic breaks on bipap therapy. Guarded prognosis. 07/17/21: will stop steroids today. Hold on lasix given marginal blood pressure. Guarded prognosis. 07/15/21: Lasix today. Positive fluid balance all weekend based on I/O. Prone. Wean for sats >88% 07/12/21: Gave lasix 40mg IV again this am. Per charting yesterday was the first net negative day. Suggest PRN diuresis over the weekend as well. My partner is rounding but will likely see as needed. Continue to wean for sats >88% 07/11/21: Lasix 40mg IV this am. Attempt to prone if able. Attempt to achieve daily net negative state. Wean for sats >88%. Guarded prognosis. Will change prednisone to 5mg daily starting tomorrow. 07/09/21: Echo shows diastolic dysfunction. Will given an additional 40 of IV lasix today. Monitor daily and wean aggressively for sats >88% 07/08/21: Worsening CXR, Gave lasix yesterday and will give again today. Suggest checking echo, ekg. Prognosis is poor now with this change. We have seen COVID cause CAD with MS. 07/05/21: Will monitor over the weekend. Worst case scenario, may need to go back up to Prednisone 20 at least. Prone if able. Unsure why all of sudden oxygen requirement increasing. Will repeat CXR. 07/03/21: Down to 10 of prednisone. Will keep through the weekend and then drop to 5 on Thursday. PT/OT assessment if not done. Suggest maybe weaning flow now given FiO2 down to 50%. Prognosis is still guarded. 07/01/21: Will drop steroids to 10mg daily starting tomorrow. Wean for sats >88%. Prone. PT/OT should be seeing now that oxygen requirement is down more. 06/28/21: Continue to wean as tolerated. Will drop steroids down even further next week. Will see PRN over the weekend. 06/26/21: Will drop steroids down to 20 starting tomorrow. Prone. Continue to wean as tolerated. 06/24/21: Continue Pred, will drop to 20 daily tomorrow. Prone if able. Hopeful they can wean FiO2 more. May need to consider increasing flow for a while. 06/21/21: Continue pred at 40, will decrease likely Thursday/Thursday to 20 daily. Prone if able. Continue to wean as tolerated. Prognosis still remains guarded. 06/20/21: Will drop steroids down to 40 today. Proning. Continue to wean FiO2. 06/18/21: Wean Fio2 for sats >88%. Please encourage proning. Drop steroids down to 40 on . 06/14/21: Continue oral steroid therapy. Will do further weaning next week. Wean for sats >88% and prone as tolerated. Will see as needed over the weekend. 06/13/21: Will change to prednisone 60 daily starting tomorrow. Prone if able and wean for sats >88% 06/11/21: no new recs, will change to oral steroids tomorrow, continue to prone if able and wean for sats >88% 06/10/21: Will change to oral steroids on Thursday to begin prolonged taper 06/06/21: Continue to wean as tolerated, will drop steroids on tomorrow. 06/04/21: Clinically no change. Will drop steroids down the end of this week. 05/31/21: Clinically no change. Not eligible for LTACH. Encourage Proning. Will drop steroids down to 40 q8 05/29/21: No acute changes clinically. Still on HFNC but not really able to wean. Continue to encourage proning. Will drop steroids further on Thursday. 05/27/21: No improvement over the weekend but also no worsening. No other strategies to offer. Please continue to encourage patient to prone. I dropped steroids on yesterday. Will wean more later in the week. 05/24/21: No new recs again for today. Will see as needed over the weekend but follow chart peripherally for changes. 05/22/21: No new recs for today. Prognosis remains guarded. 05/21/21: Wean as tolerated. Prone if able. Guarded prognosis 05/20/21: COntinue current level of care. 05/17/21: Prone if possible. Wean FiO2 for sats >88%. Continue scheduled ativan. Prognosis is very very guarded. Unfunded so not a candidate for LTACH 05/16/21: Prone if willing. Wean FIO2 if patient will allow. Anxiety control. Prognosis still remains very guarded. 05/15/21: Not sure if MAR is accurate but may have only gotten one dose of scheduled anixolytic therapy. Continue proning as tolerated, and wean FiO2 and flow for sats >88%. Prognosi remains very very guarded to poor. 05/14/21: Will discontinue the buspar and make the ativan scheduled but will do q6 as oppose to q4 and attempt to leave parameters for nursing when not to give. If anxiety could be controlled, feel that patient could be weaned further. She has no funding so she is not a candidate for LTACH. Prone if possible. Guarded prognosis. This is her 28th day. 05/13/21: Ordered buspar 10 BID to start with to help with anxiety. Please continue to wean FiO2 as tolerated. Will remind nurse that there is PRN ativan available. Continue higher doses of steroids. Prone if able. 05/12/21: Patient may need something longer acting for anxiety. Per chart has not gotten any ativan in days. Would be ok with either buspar or low dose klonopin bid. COntinue higher doses of steroids as patient seems to be responding. Prone if possible. 05/11/21: Continue high doses of steroids and continue to wean for sats >88%. Please encourage proning. 05/10/21: Will continue this dose of steroid at least through the weekend and assess for improvement. will speak with RT about aggressive weaning. Full dose anticoagulation continues. Very very guarded to poor prognosis. 05/09/21: Going to consider increasing steroids to 125q8, maybe as early as tomorrow. continue full dose anticoagulation. 05/08/21: Continue anticoagulation and steroids. Prone if possible. Anxiety control. No objection to CTA if this can happen. Very very guarded prognosis. 05/07/21: Spoke with IMS, not opposed to full dose anticoagulation. If patient goes back on NRB HFNC combo may need to consider restarting PPN again. Encourage proning. Guarded prognosis. 05/06/21: Continue to wean FiO2 and flow for sats >88%. Tolerating diet now so will stop PPN. Continue anxiety control. Continue IV steroids. Would not object to transfer to COVID floor if bed available. Not sure why she was titrated back up to 100% from 85 as all sats documented in the RT's notes were acceptable. Same for under vital signs as well. 05/03/21: Set back last night from yesterday. Continue bipap therapy for now and attempt HFNC maybe later this afternoon. Continue to use PRN ativan but may need to schedule as she likely took off mask from anxiety. Continue IV steroids. Hold on transfer to COVID Floor. 05/02/21: Continue to wean FiO2 as tolerated for sats >88%. Will continue bipap at night. Patient has no funding so not a candidate for LTACH. Given that she has been stable and not requiring the combo of HFNC and NRB, will consider moving to COVID floor. 05/01/21: Continue to wean FiO2 for sats >88%. A sat of 90 is more than acceptable and oxygen should not be increased for this unless patient desats and remains at a sat lower than 88. Bipap at night to give some form of relief and HFNC during the day. Currently on just this alone which is improvement. Ok with daily diuresis but must monitor renal function and BP closely. She was over diuresed last week and we ended up giving fluid back. Prognosis remains guarded. 04/30/21: Will start CLinimix today for nutritional support, without electrolytes. Check labs in am. Prone if able. Continue precedx for anxiety. Very very guarded prognosis. Attempting our best to not intubate. 04/29/21: Continue precedex. Continue IV solumedrol. Prone if able. Guarded prognosis. 04/28/21: Continue Precedex. Picc team attempting to place line now. Stable on Bipap. Ordered steroids IV solumedrol to start today. Prognosis remains guarded, still at very high risk for intubation. 04/27/21: Hypotension improving/improved. Hold on any further lasix dosing. Continue precedex to help with anxeity. later today please attempt HFNC with NRB if needed. Attempt to feed if possible. Steroids end today, please order solumedrol 40q8 to start tomorrow (04/28/21). guarded prognosis. 04/26/21: Hypotension today, most likely from precedex use and diuresis that I did the last several days. Will bolus again today. Consider midodrine if BP does not respond. 04/25/21: Lasix again today. Keep PRN ativan for now. Hold on precedex for now. Guarded prognosis. Labs ordered for tomorrow. 04/24/21: Lasix today. Will also start patient on low dose PRN ativan. If this does not help will then try precedex. Guarded prognosis. 04/23/21: Prone as tolerated. No lasix today. Continue decadron. Guarded prognosis. High risk for intubation and high mortality with intubation. 04/19/21: Prone as tolerated during the day and sleep prone at night. Continue IV remdesivir and steroids. Did get actemra. Guarded prognosis. 1. Daily net negative state 2. Prone if possible 3. IV remdesivir. 4. Should be a candidate for Actemra 5. IV steroids 6. Guarded Prognosis Subjective Date of service: 07/20/21 Principal diagnosis: Covid-19 Interval history: Down to 60% on bipap. Awake and alert. More calm. Hungry. Objective Vital Signs - 12hr 07/19/21 07/19/21 07/20/21 23:29 23:37 00:00 Temperature 97.8 F Pulse Rate 104 H 101 H Respiratory 25 H 26 H Rate Blood Pressure 108/58 108/62 O2 Sat by Pulse 99 100 Oximetry 07/20/21 07/20/21 07/20/21 01:35 02:00 03:51 Temperature 97.6 F Pulse Rate 89 94 H Respiratory 26 H Rate Blood Pressure 115/53 O2 Sat by Pulse 100 99 Oximetry 07/20/21 07/20/21 07/20/21 04:00 05:00 05:45 Temperature Pulse Rate 96 H 99 H Respiratory 23 24 Rate Blood Pressure 110/46 106/57 O2 Sat by Pulse 99 100 99 Oximetry 07/20/21 07/20/21 07/20/21 06:00 08:50 08:54 Temperature Pulse Rate 100 H 101 H Respiratory 25 H 27 H Rate Blood Pressure 114/65 109/44 O2 Sat by Pulse 99 97 97 Oximetry Constitutional: no acute distress, alert Eyes: non-icteric ENT: oropharynx moist Neck: supple Effort: normal Ascultation: Bilateral: diminished breath sounds Cardiovascular: regular rate and rhythm Gastrointestinal: normoactive bowel sounds, soft, non-tender, non-distended Integumentary: normal Extremities: no cyanosis, no edema, pink and warm Neurologic: normal mental status, non-focal exam, pupils equal and round, CN II- XII normal Psychiatric: mood appropriate, affect normal CBC and BMP: 07/20/21 04:00 07/20/21 04:00 ABG, PT/INR, D-dimer: ABG ABG pH 7.369 (7.320-7.450) 07/19/21 07:54 POC ABG pCO2 67.9 mmHg (32.0-48.0) H 07/19/21 07:54 ABG pCO2 50.2 mm Hg 05/14/21 02:23 POC ABG pO2 131.0 mmHg (83-108) H 07/19/21 07:54 ABG pO2 130.3 mm Hg (80.0-90.0) H 05/14/21 02:23 POC ABG HCO3 38.3 07/19/21 07:54 ABG O2 Saturation 99.0 (0-100) 07/19/21 07:54 PT/INR, D-dimer D-Dimer 638.35 ng/mlDDU (0-234) H 07/09/21 04:45 Abnormal lab findings: Abnormal Labs 04/16/21 04/16/21 04/16/21 11:42 11:42 11:42 WBC MCH MCHC RDW 16.1 H Lymph % (Auto) 7.8 L Merrick % (Auto) Eos % (Auto) Lymph # (Auto) 0.8 L Mer[place] # (Auto) Eos # (Auto) Baso # (Auto) Seg Neutrophils % 87.7 H Seg Neuts % (Manual) Lymphocytes % (Manual) Seg Neutrophils # 8.5 H Seg Neutrophils # Man Lymphocytes # (Manual) D-Dimer 338.70 H ABG pH POC ABG pCO2 POC ABG pO2 ABG pO2 ABG HCO3 ABG O2 Saturation ABG Base Excess ABG Oxyhemoglobin ABG Sodium ABG Chloride ABG Glucose Oxyhemoglobin Carboxyhemoglobin Sodium Potassium Chloride Carbon Dioxide BUN Creatinine Glucose 194 H POC Glucose Hemoglobin A1c Ferritin AST ALT Alkaline Phosphatase Lactate Dehydrogenase C-Reactive Protein Total Protein 8.4 H Albumin 3.8 L Arterial Blood Glucose Coronavirus (PCR) 04/16/21 04/16/21 04/17/21 11:42 11:42 03:50 WBC MCH MCHC RDW 16.0 H Lymph % (Auto) 7.7 L Merrick % (Auto) Eos % (Auto) Lymph # (Auto) 0.6 L [place] # (Auto) Eos # (Auto) Baso # (Auto) Seg Neutrophils % 89.8 H Seg Neuts % (Manual) Lymphocytes % (Manual) Seg Neutrophils # Seg Neutrophils # Man Lymphocytes # (Manual) D-Dimer ABG pH POC ABG pCO2 POC ABG pO2 ABG pO2 ABG HCO3 ABG O2 Saturation ABG Base Excess ABG Oxyhemoglobin ABG Sodium ABG Chloride ABG Glucose Oxyhemoglobin Carboxyhemoglobin Sodium Potassium Chloride Carbon Dioxide BUN Creatinine Glucose 195 H POC Glucose Hemoglobin A1c Ferritin 254.3 H AST ALT Alkaline Phosphatase Lactate Dehydrogenase 359 H C-Reactive Protein 15.20 H Total Protein Albumin Arterial Blood Glucose Coronavirus (PCR) 04/17/21 04/17/21 04/17/21 03:50 08:26 08:26 WBC MCH MCHC RDW Lymph % (Auto) Merrick % (Auto) Eos % (Auto) Lymph # (Auto) Merrick # (Auto) Eos # (Auto) Baso # (Auto) Seg Neutrophils % Seg Neuts % (Manual) Lymphocytes % (Manual) Seg Neutrophils # Seg Neutrophils # Man Lymphocytes # (Manual) D-Dimer 262.48 H ABG pH POC ABG pCO2 POC ABG pO2 ABG pO2 ABG HCO3 ABG O2 Saturation ABG Base Excess ABG Oxyhemoglobin ABG Sodium ABG Chloride ABG Glucose Oxyhemoglobin Carboxyhemoglobin Sodium Potassium Chloride Carbon Dioxide BUN 20 H Creatinine 0.5 L Glucose 249 H 225 H POC Glucose Hemoglobin A1c Ferritin AST ALT Alkaline Phosphatase Lactate Dehydrogenase 338 H C-Reactive Protein 17.20 H Total Protein Albumin 3.2 L Arterial Blood Glucose Coronavirus (PCR) 04/17/21 04/17/21 04/17/21 08:26 15:04 Unknown WBC MCH MCHC RDW Lymph % (Auto) Merrick % (Auto) Eos % (Auto) Lymph # (Auto) Merrick # (Auto) Eos # (Auto) Baso # (Auto) Seg Neutrophils % Seg Neuts % (Manual) Lymphocytes % (Manual) Seg Neutrophils # Seg Neutrophils # Man Lymphocytes # (Manual) D-Dimer ABG pH POC ABG pCO2 POC ABG pO2 ABG pO2 ABG HCO3 ABG O2 Saturation ABG Base Excess ABG Oxyhemoglobin ABG Sodium ABG Chloride ABG Glucose Oxyhemoglobin Carboxyhemoglobin Sodium Potassium Chloride Carbon Dioxide BUN 20 H Creatinine 0.5 L Glucose 246 H POC Glucose Hemoglobin A1c Ferritin 392.0 H AST ALT Alkaline Phosphatase Lactate Dehydrogenase C-Reactive Protein Total Protein 8.3 H Albumin 3.1 L Arterial Blood Glucose Coronavirus (PCR) Positive A 04/18/21 04/18/21 04/18/21 05:06 05:06 07:36 WBC 11.6 H MCH MCHC RDW 16.1 H Lymph % (Auto) Merrick % (Auto) Eos % (Auto) Lymph # (Auto) Merrick # (Auto) Eos # (Auto) Baso # (Auto) Seg Neutrophils % Seg Neuts % (Manual) Lymphocytes % (Manual) Seg Neutrophils # Seg Neutrophils # Man Lymphocytes # (Manual) D-Dimer ABG pH POC ABG pCO2 POC ABG pO2 ABG pO2 ABG HCO3 ABG O2 Saturation ABG Base Excess ABG Oxyhemoglobin ABG Sodium ABG Chloride ABG Glucose Oxyhemoglobin Carboxyhemoglobin Sodium Potassium 5.2 H Chloride Carbon Dioxide BUN 22 H Creatinine 0.5 L Glucose 315 H POC Glucose Hemoglobin A1c 8.5 H Ferritin AST ALT Alkaline Phosphatase Lactate Dehydrogenase C-Reactive Protein Total Protein Albumin 3.3 L Arterial Blood Glucose Coronavirus (PCR) 04/18/21 04/18/21 04/18/21 11:59 16:43 23:24 WBC MCH MCHC RDW Lymph % (Auto) Merrick % (Auto) Eos % (Auto) Lymph # (Auto) Merrick # (Auto) Eos # (Auto) Baso # (Auto) Seg Neutrophils % Seg Neuts % (Manual) Lymphocytes % (Manual) Seg Neutrophils # Seg Neutrophils # Man Lymphocytes # (Manual) D-Dimer ABG pH POC ABG pCO2 POC ABG pO2 ABG pO2 ABG HCO3 ABG O2 Saturation ABG Base Excess ABG Oxyhemoglobin ABG Sodium ABG Chloride ABG Glucose Oxyhemoglobin Carboxyhemoglobin Sodium Potassium Chloride Carbon Dioxide BUN Creatinine Glucose POC Glucose 284 H 273 H 290 H Hemoglobin A1c Ferritin AST ALT Alkaline Phosphatase Lactate Dehydrogenase C-Reactive Protein Total Protein Albumin Arterial Blood Glucose Coronavirus (PCR) 04/19/21 04/19/21 04/19/21 04:19 04:19 08:10 WBC MCH MCHC RDW 15.7 H Lymph % (Auto) Merrick % (Auto) Eos % (Auto) Lymph # (Auto) Merrick # (Auto) Eos # (Auto) Baso # (Auto) Seg Neutrophils % Seg Neuts % (Manual) Lymphocytes % (Manual) Seg Neutrophils # Seg Neutrophils # Man Lymphocytes # (Manual) D-Dimer ABG pH POC ABG pCO2 POC ABG pO2 ABG pO2 ABG HCO3 ABG O2 Saturation ABG Base Excess ABG Oxyhemoglobin ABG Sodium ABG Chloride ABG Glucose Oxyhemoglobin Carboxyhemoglobin Sodium Potassium Chloride Carbon Dioxide BUN 27 H Creatinine 0.4 L Glucose 184 H POC Glucose 194 H Hemoglobin A1c Ferritin AST ALT Alkaline Phosphatase Lactate Dehydrogenase C-Reactive Protein Total Protein Albumin 3.1 L Arterial Blood Glucose Coronavirus (PCR) 04/19/21 04/19/21 04/19/21 11:38 16:25 22:04 WBC MCH MCHC RDW Lymph % (Auto) Merrick % (Auto) Eos % (Auto) Lymph # (Auto) Merrick # (Auto) Eos # (Auto) Baso # (Auto) Seg Neutrophils % Seg Neuts % (Manual) Lymphocytes % (Manual) Seg Neutrophils # Seg Neutrophils # Man Lymphocytes # (Manual) D-Dimer ABG pH POC ABG pCO2 POC ABG pO2 ABG pO2 ABG HCO3 ABG O2 Saturation ABG Base Excess ABG Oxyhemoglobin ABG Sodium ABG Chloride ABG Glucose Oxyhemoglobin Carboxyhemoglobin Sodium Potassium Chloride Carbon Dioxide BUN Creatinine Glucose POC Glucose 224 H 297 H 251 H Hemoglobin A1c Ferritin AST ALT Alkaline Phosphatase Lactate Dehydrogenase C-Reactive Protein Total Protein Albumin Arterial Blood Glucose Coronavirus (PCR) 04/20/21 04/20/21 04/20/21 05:28 08:43 16:21 WBC MCH MCHC RDW Lymph % (Auto) Merrick % (Auto) Eos % (Auto) Lymph # (Auto) Merrick # (Auto) Eos # (Auto) Baso # (Auto) Seg Neutrophils % Seg Neuts % (Manual) Lymphocytes % (Manual) Seg Neutrophils # Seg Neutrophils # Man Lymphocytes # (Manual) D-Dimer ABG pH POC ABG pCO2 POC ABG pO2 ABG pO2 ABG HCO3 ABG O2 Saturation ABG Base Excess ABG Oxyhemoglobin ABG Sodium ABG Chloride ABG Glucose Oxyhemoglobin Carboxyhemoglobin Sodium Potassium Chloride Carbon Dioxide BUN 27 H Creatinine Glucose 192 H POC Glucose 173 H 253 H Hemoglobin A1c Ferritin AST ALT Alkaline Phosphatase Lactate Dehydrogenase C-Reactive Protein Total Protein Albumin 3.0 L Arterial Blood Glucose Coronavirus (PCR) 04/21/21 04/21/21 04/21/21 07:58 12:05 16:08 WBC MCH MCHC RDW Lymph % (Auto) Merrick % (Auto) Eos % (Auto) Lymph # (Auto) Merrick # (Auto) Eos # (Auto) Baso # (Auto) Seg Neutrophils % Seg Neuts % (Manual) Lymphocytes % (Manual) Seg Neutrophils # Seg Neutrophils # Man Lymphocytes # (Manual) D-Dimer ABG pH POC ABG pCO2 POC ABG pO2 ABG pO2 ABG HCO3 ABG O2 Saturation ABG Base Excess ABG Oxyhemoglobin ABG Sodium ABG Chloride ABG Glucose Oxyhemoglobin Carboxyhemoglobin Sodium Potassium Chloride Carbon Dioxide BUN Creatinine Glucose POC Glucose 140 H 252 H 214 H Hemoglobin A1c Ferritin AST ALT Alkaline Phosphatase Lactate Dehydrogenase C-Reactive Protein Total Protein Albumin Arterial Blood Glucose Coronavirus (PCR) 04/21/21 04/22/21 04/22/21 21:42 08:37 12:01 WBC MCH MCHC RDW Lymph % (Auto) Merrick % (Auto) Eos % (Auto) Lymph # (Auto) Merrick # (Auto) Eos # (Auto) Baso # (Auto) Seg Neutrophils % Seg Neuts % (Manual) Lymphocytes % (Manual) Seg Neutrophils # Seg Neutrophils # Man Lymphocytes # (Manual) D-Dimer ABG pH 7.457 H POC ABG pCO2 POC ABG pO2 49.4 L ABG pO2 ABG HCO3 ABG O2 Saturation ABG Base Excess ABG Oxyhemoglobin 85.6 L ABG Sodium ABG Chloride ABG Glucose 121 H Oxyhemoglobin Carboxyhemoglobin 0.3 L Sodium Potassium Chloride Carbon Dioxide BUN Creatinine Glucose POC Glucose 162 H 227 H Hemoglobin A1c Ferritin AST ALT Alkaline Phosphatase Lactate Dehydrogenase C-Reactive Protein Total Protein Albumin Arterial Blood Glucose 121 H Coronavirus (PCR) 04/22/21 04/22/21 04/23/21 16:26 22:23 04:52 WBC MCH MCHC RDW 15.7 H Lymph % (Auto) Merrick % (Auto) Eos % (Auto) Lymph # (Auto) Merrick # (Auto) Eos # (Auto) Baso # (Auto) Seg Neutrophils % Seg Neuts % (Manual) Lymphocytes % (Manual) Seg Neutrophils # Seg Neutrophils # Man Lymphocytes # (Manual) D-Dimer ABG pH POC ABG pCO2 POC ABG pO2 ABG pO2 ABG HCO3 ABG O2 Saturation ABG Base Excess ABG Oxyhemoglobin ABG Sodium ABG Chloride ABG Glucose Oxyhemoglobin Carboxyhemoglobin Sodium Potassium Chloride Carbon Dioxide BUN Creatinine Glucose POC Glucose 200 H 136 H Hemoglobin A1c Ferritin AST ALT Alkaline Phosphatase Lactate Dehydrogenase C-Reactive Protein Total Protein Albumin Arterial Blood Glucose Coronavirus (PCR) 04/23/21 04/23/21 04/23/21 04:52 12:06 17:41 WBC MCH MCHC RDW Lymph % (Auto) Merrick % (Auto) Eos % (Auto) Lymph # (Auto) Merrick # (Auto) Eos # (Auto) Baso # (Auto) Seg Neutrophils % Seg Neuts % (Manual) Lymphocytes % (Manual) Seg Neutrophils # Seg Neutrophils # Man Lymphocytes # (Manual) D-Dimer ABG pH POC ABG pCO2 POC ABG pO2 ABG pO2 ABG HCO3 ABG O2 Saturation ABG Base Excess ABG Oxyhemoglobin ABG Sodium ABG Chloride ABG Glucose Oxyhemoglobin Carboxyhemoglobin Sodium 136 L Potassium Chloride 97.7 L Carbon Dioxide BUN 23 H Creatinine Glucose 101 H POC Glucose 202 H 169 H Hemoglobin A1c Ferritin AST 46 H ALT Alkaline Phosphatase Lactate Dehydrogenase C-Reactive Protein Total Protein Albumin 3.3 L Arterial Blood Glucose Coronavirus (PCR) 04/23/21 04/24/21 04/24/21 23:08 05:17 08:38 WBC MCH MCHC RDW Lymph % (Auto) Merrick % (Auto) Eos % (Auto) Lymph # (Auto) Merrick # (Auto) Eos # (Auto) Baso # (Auto) Seg Neutrophils % Seg Neuts % (Manual) Lymphocytes % (Manual) Seg Neutrophils # Seg Neutrophils # Man Lymphocytes # (Manual) D-Dimer ABG pH POC ABG pCO2 POC ABG pO2 ABG pO2 ABG HCO3 ABG O2 Saturation ABG Base Excess ABG Oxyhemoglobin ABG Sodium ABG Chloride ABG Glucose Oxyhemoglobin Carboxyhemoglobin Sodium Potassium Chloride Carbon Dioxide BUN Creatinine Glucose POC Glucose 111 H 108 H 126 H Hemoglobin A1c Ferritin AST ALT Alkaline Phosphatase Lactate Dehydrogenase C-Reactive Protein Total Protein Albumin Arterial Blood Glucose Coronavirus (PCR) 04/24/21 04/24/21 04/24/21 11:54 17:57 21:23 WBC MCH MCHC RDW Lymph % (Auto) Merrick % (Auto) Eos % (Auto) Lymph # (Auto) Merrick # (Auto) Eos # (Auto) Baso # (Auto) Seg Neutrophils % Seg Neuts % (Manual) Lymphocytes % (Manual) Seg Neutrophils # Seg Neutrophils # Man Lymphocytes # (Manual) D-Dimer ABG pH POC ABG pCO2 POC ABG pO2 ABG pO2 ABG HCO3 ABG O2 Saturation ABG Base Excess ABG Oxyhemoglobin ABG Sodium ABG Chloride ABG Glucose Oxyhemoglobin Carboxyhemoglobin Sodium Potassium Chloride Carbon Dioxide BUN Creatinine Glucose POC Glucose 147 H 177 H 138 H Hemoglobin A1c Ferritin AST ALT Alkaline Phosphatase Lactate Dehydrogenase C-Reactive Protein Total Protein Albumin Arterial Blood Glucose Coronavirus (PCR) 04/25/21 04/25/21 04/25/21 07:06 11:23 15:43 WBC MCH MCHC RDW Lymph % (Auto) Merrick % (Auto) Eos % (Auto) Lymph # (Auto) Merrick # (Auto) Eos # (Auto) Baso # (Auto) Seg Neutrophils % Seg Neuts % (Manual) Lymphocytes % (Manual) Seg Neutrophils # Seg Neutrophils # Man Lymphocytes # (Manual) D-Dimer ABG pH POC ABG pCO2 POC ABG pO2 ABG pO2 ABG HCO3 ABG O2 Saturation ABG Base Excess ABG Oxyhemoglobin ABG Sodium ABG Chloride ABG Glucose Oxyhemoglobin Carboxyhemoglobin Sodium Potassium Chloride Carbon Dioxide BUN Creatinine Glucose POC Glucose 147 H 169 H 227 H Hemoglobin A1c Ferritin AST ALT Alkaline Phosphatase Lactate Dehydrogenase C-Reactive Protein Total Protein Albumin Arterial Blood Glucose Coronavirus (PCR) 04/25/21 04/26/21 04/26/21 21:22 02:45 05:15 WBC MCH MCHC RDW Lymph % (Auto) Merrick % (Auto) Eos % (Auto) Lymph # (Auto) [place]rick # (Auto) Eos # (Auto) Baso # (Auto) Seg Neutrophils % Seg Neuts % (Manual) Lymphocytes % (Manual) Seg Neutrophils # Seg Neutrophils # Man Lymphocytes # (Manual) D-Dimer ABG pH POC ABG pCO2 POC ABG pO2 70.7 L ABG pO2 ABG HCO3 ABG O2 Saturation ABG Base Excess ABG Oxyhemoglobin 93.0 L ABG Sodium 132.7 L ABG Chloride ABG Glucose 115 H Oxyhemoglobin Carboxyhemoglobin Sodium Potassium Chloride 95.8 L Carbon Dioxide 32 H BUN 20 H Creatinine Glucose 102 H POC Glucose 196 H Hemoglobin A1c Ferritin AST ALT Alkaline Phosphatase Lactate Dehydrogenase C-Reactive Protein Total Protein Albumin Arterial Blood Glucose 115 H Coronavirus (PCR) 04/26/21 04/26/21 04/26/21 11:49 16:09 21:07 WBC MCH MCHC RDW Lymph % (Auto) Merrick % (Auto) Eos % (Auto) Lymph # (Auto) [place]rick # (Auto) Eos # (Auto) Baso # (Auto) Seg Neutrophils % Seg Neuts % (Manual) Lymphocytes % (Manual) Seg Neutrophils # Seg Neutrophils # Man Lymphocytes # (Manual) D-Dimer ABG pH POC ABG pCO2 POC ABG pO2 ABG pO2 ABG HCO3 ABG O2 Saturation ABG Base Excess ABG Oxyhemoglobin ABG Sodium ABG Chloride ABG Glucose Oxyhemoglobin Carboxyhemoglobin Sodium Potassium Chloride Carbon Dioxide BUN Creatinine Glucose POC Glucose 114 H 188 H 136 H Hemoglobin A1c Ferritin AST ALT Alkaline Phosphatase Lactate Dehydrogenase C-Reactive Protein Total Protein Albumin Arterial Blood Glucose Coronavirus (PCR) 04/27/21 04/27/21 04/28/21 17:34 22:12 08:26 WBC MCH MCHC RDW Lymph % (Auto) [place] % (Auto) Eos % (Auto) Lymph # (Auto) [place] # (Auto) Eos # (Auto) Baso # (Auto) Seg Neutrophils % Seg Neuts % (Manual) Lymphocytes % (Manual) Seg Neutrophils # Seg Neutrophils # Man Lymphocytes # (Manual) D-Dimer ABG pH POC ABG pCO2 POC ABG pO2 ABG pO2 ABG HCO3 ABG O2 Saturation ABG Base Excess ABG Oxyhemoglobin ABG Sodium ABG Chloride ABG Glucose Oxyhemoglobin Carboxyhemoglobin Sodium Potassium Chloride Carbon Dioxide BUN Creatinine Glucose POC Glucose 128 H 159 H 69 L Hemoglobin A1c Ferritin AST ALT Alkaline Phosphatase Lactate Dehydrogenase C-Reactive Protein Total Protein Albumin Arterial Blood Glucose Coronavirus (PCR) 04/28/21 04/28/2104/29/21 12:22 21:11 06:05 WBC MCH MCHC RDW Lymph % (Auto) [place] % (Auto) Eos % (Auto) Lymph # (Auto) [place] # (Auto) Eos # (Auto) Baso # (Auto) Seg Neutrophils % Seg Neuts % (Manual) Lymphocytes % (Manual) Seg Neutrophils # Seg Neutrophils # Man Lymphocytes # (Manual) D-Dimer ABG pH POC ABG pCO2 POC ABG pO2 ABG pO2 ABG HCO3 ABG O2 Saturation ABG Base Excess ABG Oxyhemoglobin ABG Sodium ABG Chloride ABG Glucose Oxyhemoglobin Carboxyhemoglobin Sodium 132 L Potassium Chloride 94.4 L Carbon Dioxide BUN Creatinine 0.2 L D Glucose 140 H POC Glucose 141 H 171 H Hemoglobin A1c Ferritin AST ALT Alkaline Phosphatase Lactate Dehydrogenase C-Reactive Protein Total Protein Albumin Arterial Blood Glucose Coronavirus (PCR) 04/29/21 04/29/21 04/29/21 06:05 07:24 11:36 WBC MCH MCHC 35 H RDW 15.9 H Lymph % (Auto) [place] % (Auto) Eos % (Auto) Lymph # (Auto) [place] # (Auto) Eos # (Auto) Baso # (Auto) Seg Neutrophils % Seg Neuts % (Manual) Lymphocytes % (Manual) Seg Neutrophils # Seg Neutrophils # Man Lymphocytes # (Manual) D-Dimer ABG pH POC ABG pCO2 POC ABG pO2 ABG pO2 ABG HCO3 ABG O2 Saturation ABG Base Excess ABG Oxyhemoglobin ABG Sodium ABG Chloride ABG Glucose Oxyhemoglobin Carboxyhemoglobin Sodium Potassium Chloride Carbon Dioxide BUN Creatinine Glucose POC Glucose 141 H 220 H Hemoglobin A1c Ferritin AST ALT Alkaline Phosphatase Lactate Dehydrogenase C-Reactive Protein Total Protein Albumin Arterial Blood Glucose Coronavirus (PCR) 04/29/21 04/29/21 04/29/21 14:23 15:30 17:06 WBC MCH MCHC RDW Lymph % (Auto) [place] % (Auto) Eos % (Auto) Lymph # (Auto) [place] # (Auto) Eos # (Auto) Baso # (Auto) Seg Neutrophils % Seg Neuts % (Manual) Lymphocytes % (Manual) Seg Neutrophils # Seg Neutrophils # Man Lymphocytes # (Manual) D-Dimer ABG pH POC ABG pCO2 POC ABG pO2 ABG pO2 52.6 L ABG HCO3 ABG O2 Saturation 86.4 L ABG Base Excess ABG Oxyhemoglobin ABG Sodium ABG Chloride ABG Glucose Oxyhemoglobin 84.6 L Carboxyhemoglobin Sodium Potassium Chloride Carbon Dioxide BUN Creatinine Glucose POC Glucose 173 H 158 H Hemoglobin A1c Ferritin AST ALT Alkaline Phosphatase Lactate Dehydrogenase C-Reactive Protein Total Protein Albumin Arterial Blood Glucose Coronavirus (PCR) 04/29/21 04/30/21 04/30/21 21:27 07:16 08:00 WBC MCH MCHC RDW 16.1 H Lymph % (Auto) [place] % (Auto) Eos % (Auto) Lymph # (Auto) [place] # (Auto) Eos # (Auto) Baso # (Auto) Seg Neutrophils % Seg Neuts % (Manual) Lymphocytes % (Manual) Seg Neutrophils # Seg Neutrophils # Man Lymphocytes # (Manual) D-Dimer ABG pH POC ABG pCO2 POC ABG pO2 ABG pO2 ABG HCO3 ABG O2 Saturation ABG Base Excess ABG Oxyhemoglobin ABG Sodium ABG Chloride ABG Glucose Oxyhemoglobin Carboxyhemoglobin Sodium Potassium Chloride Carbon Dioxide BUN Creatinine Glucose POC Glucose 244 H 175 H Hemoglobin A1c Ferritin AST ALT Alkaline Phosphatase Lactate Dehydrogenase C-Reactive Protein Total Protein Albumin Arterial Blood Glucose Coronavirus (PCR) 04/30/21 04/30/21 04/30/21 08:00 08:00 11:03 WBC MCH MCHC RDW Lymph % (Auto) [place] % (Auto) Eos % (Auto) Lymph # (Auto) [place] # (Auto) Eos # (Auto) Baso # (Auto) Seg Neutrophils % Seg Neuts % (Manual) Lymphocytes % (Manual) Seg Neutrophils # Seg Neutrophils # Man Lymphocytes # (Manual) D-Dimer 1796.87 H ABG pH POC ABG pCO2 POC ABG pO2 ABG pO2 ABG HCO3 ABG O2 Saturation ABG Base Excess ABG Oxyhemoglobin ABG Sodium ABG Chloride ABG Glucose Oxyhemoglobin Carboxyhemoglobin Sodium 135 L Potassium Chloride 96.3 L Carbon Dioxide BUN Creatinine 0.2 L Glucose 153 H POC Glucose 183 H Hemoglobin A1c Ferritin AST 41 H ALT 76 H Alkaline Phosphatase 160 H Lactate Dehydrogenase 522 H C-Reactive Protein Total Protein 6.1 L Albumin 3.1 L Arterial Blood Glucose Coronavirus (PCR) 04/30/21 04/30/21 05/01/21 17:04 22:17 05:39 WBC MCH MCHC RDW Lymph % (Auto) [place] % (Auto) Eos % (Auto) Lymph # (Auto) [place] # (Auto) Eos # (Auto) Baso # (Auto) Seg Neutrophils % Seg Neuts % (Manual) Lymphocytes % (Manual) Seg Neutrophils # Seg Neutrophils # Man Lymphocytes # (Manual) D-Dimer ABG pH POC ABG pCO2 POC ABG pO2 ABG pO2 ABG HCO3 ABG O2 Saturation ABG Base Excess ABG Oxyhemoglobin ABG Sodium ABG Chloride ABG Glucose Oxyhemoglobin Carboxyhemoglobin Sodium 133 L Potassium Chloride 92.1 L Carbon Dioxide BUN 24 H Creatinine 0.4 L D Glucose 269 H POC Glucose 167 H 208 H Hemoglobin A1c Ferritin AST ALT 66 H Alkaline Phosphatase 142 H Lactate Dehydrogenase C-Reactive Protein Total Protein Albumin 3.2 L Arterial Blood Glucose Coronavirus (PCR) 05/01/21 05/01/21 05/01/21 05:39 05:39 07:45 WBC MCH MCHC RDW 16.0 H Lymph % (Auto) [place] % (Auto) Eos % (Auto) Lymph # (Auto) [place] # (Auto) Eos # (Auto) Baso # (Auto) Seg Neutrophils % Seg Neuts % (Manual) Lymphocytes % (Manual) Seg Neutrophils # Seg Neutrophils # Man Lymphocytes # (Manual) D-Dimer 3984.95 H ABG pH POC ABG pCO2 POC ABG pO2 ABG pO2 ABG HCO3 ABG O2 Saturation ABG Base Excess ABG Oxyhemoglobin ABG Sodium ABG Chloride ABG Glucose Oxyhemoglobin Carboxyhemoglobin Sodium Potassium Chloride Carbon Dioxide BUN Creatinine Glucose POC Glucose 229 H Hemoglobin A1c Ferritin AST ALT Alkaline Phosphatase Lactate Dehydrogenase C-Reactive Protein Total Protein Albumin Arterial Blood Glucose Coronavirus (PCR) 05/01/21 05/01/21 05/01/21 12:10 15:46 21:06 WBC MCH MCHC RDW Lymph % (Auto) [place] % (Auto) Eos % (Auto) Lymph # (Auto) [place] # (Auto) Eos # (Auto) Baso # (Auto) Seg Neutrophils % Seg Neuts % (Manual) Lymphocytes % (Manual) Seg Neutrophils # Seg Neutrophils # Man Lymphocytes # (Manual) D-Dimer ABG pH POC ABG pCO2 POC ABG pO2 ABG pO2 ABG HCO3 ABG O2 Saturation ABG Base Excess ABG Oxyhemoglobin ABG Sodium ABG Chloride ABG Glucose Oxyhemoglobin Carboxyhemoglobin Sodium Potassium Chloride Carbon Dioxide BUN Creatinine Glucose POC Glucose 296 H 279 H 232 H Hemoglobin A1c Ferritin AST ALT Alkaline Phosphatase Lactate Dehydrogenase C-Reactive Protein Total Protein Albumin Arterial Blood Glucose Coronavirus (PCR) 05/02/21 05/02/21 05/02/21 04:55 04:55 04:55 WBC MCH MCHC RDW 16.1 H Lymph % (Auto) [place] % (Auto) Eos % (Auto) Lymph # (Auto) [place] # (Auto) Eos # (Auto) Baso # (Auto) Seg Neutrophils % Seg Neuts % (Manual) Lymphocytes % (Manual) Seg Neutrophils # Seg Neutrophils # Man Lymphocytes # (Manual) D-Dimer 1401.08 H ABG pH POC ABG pCO2 POC ABG pO2 ABG pO2 ABG HCO3 ABG O2 Saturation ABG Base Excess ABG Oxyhemoglobin ABG Sodium ABG Chloride ABG Glucose Oxyhemoglobin Carboxyhemoglobin Sodium 131 L Potassium Chloride 95.5 L Carbon Dioxide BUN 20 H Creatinine 0.3 L Glucose 288 H POC Glucose Hemoglobin A1c Ferritin AST ALT Alkaline Phosphatase Lactate Dehydrogenase C-Reactive Protein Total Protein 6.0 L Albumin 3.1 L Arterial Blood Glucose Coronavirus (PCR) 05/02/21 05/02/21 05/02/21 07:53 11:45 15:25 WBC MCH MCHC RDW Lymph % (Auto) [place] % (Auto) Eos % (Auto) Lymph # (Auto) [place] # (Auto) Eos # (Auto) Baso # (Auto) Seg Neutrophils % Seg Neuts % (Manual) Lymphocytes % (Manual) Seg Neutrophils # Seg Neutrophils # Man Lymphocytes # (Manual) D-Dimer ABG pH POC ABG pCO2 POC ABG pO2 ABG pO2 ABG HCO3 ABG O2 Saturation ABG Base Excess ABG Oxyhemoglobin ABG Sodium ABG Chloride ABG Glucose Oxyhemoglobin Carboxyhemoglobin Sodium Potassium Chloride Carbon Dioxide BUN Creatinine Glucose POC Glucose 180 H 228 H 275 H Hemoglobin A1c Ferritin AST ALT Alkaline Phosphatase Lactate Dehydrogenase C-Reactive Protein Total Protein Albumin Arterial Blood Glucose Coronavirus (PCR) 05/02/21 05/03/21 05/03/21 22:56 04:30 04:49 WBC MCH MCHC RDW Lymph % (Auto) [place] % (Auto) Eos % (Auto) Lymph # (Auto) [place] # (Auto) Eos # (Auto) Baso # (Auto) Seg Neutrophils % Seg Neuts % (Manual) Lymphocytes % (Manual) Seg Neutrophils # Seg Neutrophils # Man Lymphocytes # (Manual) D-Dimer ABG pH 7.229 L POC ABG pCO2 POC ABG pO2 65.3 L ABG pO2 ABG HCO3 ABG O2 Saturation ABG Base Excess ABG Oxyhemoglobin 87.8 L ABG Sodium 133.0 L ABG Chloride 97.0 L ABG Glucose 403 H Oxyhemoglobin Carboxyhemoglobin Sodium 130 L Potassium Chloride 94.9 L Carbon Dioxide BUN 20 H Creatinine 0.5 L D Glucose 359 H POC Glucose 293 H Hemoglobin A1c Ferritin AST 54 H ALT 75 H Alkaline Phosphatase 138 H Lactate Dehydrogenase C-Reactive Protein Total Protein Albumin 3.6 L Arterial Blood Glucose 403 H Coronavirus (PCR) 05/03/21 05/03/21 05/03/21 05:27 11:26 17:57 WBC MCH MCHC RDW Lymph % (Auto) [place] % (Auto) Eos % (Auto) Lymph # (Auto) [place] # (Auto) Eos # (Auto) Baso # (Auto) Seg Neutrophils % Seg Neuts % (Manual) Lymphocytes % (Manual) Seg Neutrophils # Seg Neutrophils # Man Lymphocytes # (Manual) D-Dimer ABG pH POC ABG pCO2 POC ABG pO2 ABG pO2 ABG HCO3 ABG O2 Saturation ABG Base Excess ABG Oxyhemoglobin ABG Sodium ABG Chloride ABG Glucose Oxyhemoglobin Carboxyhemoglobin Sodium Potassium Chloride Carbon Dioxide BUN Creatinine Glucose POC Glucose 361 H 297 H 226 H Hemoglobin A1c Ferritin AST ALT Alkaline Phosphatase Lactate Dehydrogenase C-Reactive Protein Total Protein Albumin Arterial Blood Glucose Coronavirus (PCR) 05/03/21 05/04/21 05/04/21 23:12 05:12 07:30 WBC MCH MCHC RDW Lymph % (Auto) [place] % (Auto) Eos % (Auto) Lymph # (Auto) [place] # (Auto) Eos # (Auto) Baso # (Auto) Seg Neutrophils % Seg Neuts % (Manual) Lymphocytes % (Manual) Seg Neutrophils # Seg Neutrophils # Man Lymphocytes # (Manual) D-Dimer ABG pH POC ABG pCO2 POC ABG pO2 ABG pO2 ABG HCO3 ABG O2 Saturation ABG Base Excess ABG Oxyhemoglobin ABG Sodium ABG Chloride ABG Glucose Oxyhemoglobin Carboxyhemoglobin Sodium Potassium Chloride Carbon Dioxide BUN Creatinine Glucose POC Glucose 282 H 285 H 254 H Hemoglobin A1c Ferritin AST ALT Alkaline Phosphatase Lactate Dehydrogenase C-Reactive Protein Total Protein Albumin Arterial Blood Glucose Coronavirus (PCR) 05/04/21 05/04/21 05/04/21 08:58 11:45 16:07 WBC MCH MCHC RDW Lymph % (Auto) [place] % (Auto) Eos % (Auto) Lymph # (Auto) [place] # (Auto) Eos # (Auto) Baso # (Auto) Seg Neutrophils % Seg Neuts % (Manual) Lymphocytes % (Manual) Seg Neutrophils # Seg Neutrophils # Man Lymphocytes # (Manual) D-Dimer ABG pH POC ABG pCO2 POC ABG pO2 ABG pO2 ABG HCO3 ABG O2 Saturation ABG Base Excess ABG Oxyhemoglobin ABG Sodium ABG Chloride ABG Glucose Oxyhemoglobin Carboxyhemoglobin Sodium 134 L Potassium Chloride Carbon Dioxide BUN 20 H Creatinine 0.3 L Glucose 267 H POC Glucose 244 H 297 H Hemoglobin A1c Ferritin AST ALT Alkaline Phosphatase Lactate Dehydrogenase C-Reactive Protein Total Protein 6.0 L Albumin 3.2 L Arterial Blood Glucose Coronavirus (PCR) 05/04/21 05/05/21 05/05/21 23:32 05:00 05:13 WBC MCH MCHC RDW Lymph % (Auto) [place] % (Auto) Eos % (Auto) Lymph # (Auto) [place] # (Auto) Eos # (Auto) Baso # (Auto) Seg Neutrophils % Seg Neuts % (Manual) Lymphocytes % (Manual) Seg Neutrophils # Seg Neutrophils # Man Lymphocytes # (Manual) D-Dimer ABG pH POC ABG pCO2 POC ABG pO2 ABG pO2 ABG HCO3 ABG O2 Saturation ABG Base Excess ABG Oxyhemoglobin ABG Sodium ABG Chloride ABG Glucose Oxyhemoglobin Carboxyhemoglobin Sodium 132 L Potassium Chloride 96.4 L Carbon Dioxide BUN 22 H Creatinine 0.3 L Glucose 228 H POC Glucose 154 H 260 H Hemoglobin A1c Ferritin AST ALT 67 H Alkaline Phosphatase Lactate Dehydrogenase C-Reactive Protein Total Protein 6.1 L Albumin 3.2 L Arterial Blood Glucose Coronavirus (PCR) 05/05/21 05/05/21 05/05/21 11:32 17:49 23:07 WBC MCH MCHC RDW Lymph % (Auto) [place] % (Auto) Eos % (Auto) Lymph # (Auto) [place] # (Auto) Eos # (Auto) Baso # (Auto) Seg Neutrophils % Seg Neuts % (Manual) Lymphocytes % (Manual) Seg Neutrophils # Seg Neutrophils # Man Lymphocytes # (Manual) D-Dimer ABG pH POC ABG pCO2 POC ABG pO2 ABG pO2 ABG HCO3 ABG O2 Saturation ABG Base Excess ABG Oxyhemoglobin ABG Sodium ABG Chloride ABG Glucose Oxyhemoglobin Carboxyhemoglobin Sodium Potassium Chloride Carbon Dioxide BUN Creatinine Glucose POC Glucose 279 H 308 H 213 H Hemoglobin A1c Ferritin AST ALT Alkaline Phosphatase Lactate Dehydrogenase C-Reactive Protein Total Protein Albumin Arterial Blood Glucose Coronavirus (PCR) 05/06/21 05/06/21 05/06/21 05:00 05:00 05:20 WBC MCH MCHC RDW 16.8 H Lymph % (Auto) [place] % (Auto) Eos % (Auto) Lymph # (Auto) [place] # (Auto) Eos # (Auto) Baso # (Auto) Seg Neutrophils % Seg Neuts % (Manual) 99.0 H Lymphocytes % (Manual) Seg Neutrophils # Seg Neutrophils # Man 10.9 H Lymphocytes # (Manual) 0.0 L D-Dimer ABG pH POC ABG pCO2 POC ABG pO2 ABG pO2 ABG HCO3 ABG O2 Saturation ABG Base Excess ABG Oxyhemoglobin ABG Sodium ABG Chloride ABG Glucose Oxyhemoglobin Carboxyhemoglobin Sodium 133 L Potassium Chloride Carbon Dioxide BUN 21 H Creatinine 0.3 L Glucose 259 H POC Glucose 308 H Hemoglobin A1c Ferritin AST ALT Alkaline Phosphatase Lactate Dehydrogenase C-Reactive Protein Total Protein Albumin 3.2 L Arterial Blood Glucose Coronavirus (PCR) 05/06/21 05/06/21 05/06/21 11:24 17:54 21:32 WBC MCH MCHC RDW Lymph % (Auto) [place] % (Auto) Eos % (Auto) Lymph # (Auto) [place] # (Auto) Eos # (Auto) Baso # (Auto) Seg Neutrophils % Seg Neuts % (Manual) Lymphocytes % (Manual) Seg Neutrophils # Seg Neutrophils # Man Lymphocytes # (Manual) D-Dimer ABG pH POC ABG pCO2 POC ABG pO2 ABG pO2 ABG HCO3 ABG O2 Saturation ABG Base Excess ABG Oxyhemoglobin ABG Sodium ABG Chloride ABG Glucose Oxyhemoglobin Carboxyhemoglobin Sodium Potassium Chloride Carbon Dioxide BUN Creatinine Glucose POC Glucose 262 H 124 H 246 H Hemoglobin A1c Ferritin AST ALT Alkaline Phosphatase Lactate Dehydrogenase C-Reactive Protein Total Protein Albumin Arterial Blood Glucose Coronavirus (PCR) 05/06/21 05/07/21 05/07/21 23:10 04:54 04:54 WBC MCH MCHC RDW Lymph % (Auto) [place] % (Auto) Eos % (Auto) Lymph # (Auto) [place] # (Auto) Eos # (Auto) Baso # (Auto) Seg Neutrophils % Seg Neuts % (Manual) Lymphocytes % (Manual) Seg Neutrophils # Seg Neutrophils # Man Lymphocytes # (Manual) D-Dimer 1609.28 H ABG pH POC ABG pCO2 POC ABG pO2 ABG pO2 ABG HCO3 ABG O2 Saturation ABG Base Excess ABG Oxyhemoglobin ABG Sodium ABG Chloride ABG Glucose Oxyhemoglobin Carboxyhemoglobin Sodium 136 L Potassium Chloride Carbon Dioxide BUN 23 H Creatinine 0.3 L Glucose 110 H POC Glucose 249 H Hemoglobin A1c Ferritin AST ALT Alkaline Phosphatase Lactate Dehydrogenase C-Reactive Protein Total Protein 6.2 L Albumin 3.0 L Arterial Blood Glucose Coronavirus (PCR) 05/07/21 05/07/21 05/07/21 04:54 04:54 11:41 WBC MCH MCHC RDW Lymph % (Auto) [place] % (Auto) Eos % (Auto) Lymph # (Auto) [place] # (Auto) Eos # (Auto) Baso # (Auto) Seg Neutrophils % Seg Neuts % (Manual) Lymphocytes % (Manual) Seg Neutrophils # Seg Neutrophils # Man Lymphocytes # (Manual) D-Dimer ABG pH POC ABG pCO2 POC ABG pO2 ABG pO2 ABG HCO3 ABG O2 Saturation ABG Base Excess ABG Oxyhemoglobin ABG Sodium ABG Chloride ABG Glucose Oxyhemoglobin Carboxyhemoglobin Sodium Potassium Chloride Carbon Dioxide BUN Creatinine Glucose POC Glucose 118 H Hemoglobin A1c Ferritin 296.1 H AST ALT Alkaline Phosphatase Lactate Dehydrogenase 724 H C-Reactive Protein Total Protein Albumin Arterial Blood Glucose Coronavirus (PCR) 05/07/21 05/07/21 05/08/21 16:43 22:34 06:44 WBC MCH MCHC RDW Lymph % (Auto) [place] % (Auto) Eos % (Auto) Lymph # (Auto) [place] # (Auto) Eos # (Auto) Baso # (Auto) Seg Neutrophils % Seg Neuts % (Manual) Lymphocytes % (Manual) Seg Neutrophils # Seg Neutrophils # Man Lymphocytes # (Manual) D-Dimer ABG pH POC ABG pCO2 POC ABG pO2 ABG pO2 ABG HCO3 ABG O2 Saturation ABG Base Excess ABG Oxyhemoglobin ABG Sodium ABG Chloride ABG Glucose Oxyhemoglobin Carboxyhemoglobin Sodium Potassium Chloride Carbon Dioxide BUN Creatinine Glucose POC Glucose 159 H 233 H 235 H Hemoglobin A1c Ferritin AST ALT Alkaline Phosphatase Lactate Dehydrogenase C-Reactive Protein Total Protein Albumin Arterial Blood Glucose Coronavirus (PCR) 05/08/21 05/08/21 05/08/21 07:49 11:56 17:13 WBC MCH MCHC RDW Lymph % (Auto) [place] % (Auto) Eos % (Auto) Lymph # (Auto) [place] # (Auto) Eos # (Auto) Baso # (Auto) Seg Neutrophils % Seg Neuts % (Manual) Lymphocytes % (Manual) Seg Neutrophils # Seg Neutrophils # Man Lymphocytes # (Manual) D-Dimer ABG pH POC ABG pCO2 POC ABG pO2 ABG pO2 ABG HCO3 ABG O2 Saturation ABG Base Excess ABG Oxyhemoglobin ABG Sodium ABG Chloride ABG Glucose Oxyhemoglobin Carboxyhemoglobin Sodium Potassium Chloride Carbon Dioxide BUN Creatinine Glucose POC Glucose 219 H 184 H 182 H Hemoglobin A1c Ferritin AST ALT Alkaline Phosphatase Lactate Dehydrogenase C-Reactive Protein Total Protein Albumin Arterial Blood Glucose Coronavirus (PCR) 05/08/21 05/09/21 05/09/21 23:35 05:20 05:20 WBC MCH MCHC RDW Lymph % (Auto) [place] % (Auto) Eos % (Auto) Lymph # (Auto) [place] # (Auto) Eos # (Auto) Baso # (Auto) Seg Neutrophils % Seg Neuts % (Manual) Lymphocytes % (Manual) Seg Neutrophils # Seg Neutrophils # Man Lymphocytes # (Manual) D-Dimer 1003.87 H ABG pH POC ABG pCO2 POC ABG pO2 ABG pO2 ABG HCO3 ABG O2 Saturation ABG Base Excess ABG Oxyhemoglobin ABG Sodium ABG Chloride ABG Glucose Oxyhemoglobin Carboxyhemoglobin Sodium Potassium Chloride Carbon Dioxide BUN Creatinine Glucose POC Glucose 198 H Hemoglobin A1c Ferritin 378.7 H AST ALT Alkaline Phosphatase Lactate Dehydrogenase C-Reactive Protein Total Protein Albumin Arterial Blood Glucose Coronavirus (PCR) 05/09/21 05/09/21 05/09/21 05:20 06:04 12:53 WBC MCH MCHC RDW Lymph % (Auto) [place] % (Auto) Eos % (Auto) Lymph # (Auto) [place] # (Auto) Eos # (Auto) Baso # (Auto) Seg Neutrophils % Seg Neuts % (Manual) Lymphocytes % (Manual) Seg Neutrophils # Seg Neutrophils # Man Lymphocytes # (Manual) D-Dimer ABG pH POC ABG pCO2 POC ABG pO2 ABG pO2 ABG HCO3 ABG O2 Saturation ABG Base Excess ABG Oxyhemoglobin ABG Sodium ABG Chloride ABG Glucose Oxyhemoglobin Carboxyhemoglobin Sodium Potassium Chloride Carbon Dioxide BUN Creatinine Glucose POC Glucose 159 H 180 H Hemoglobin A1c Ferritin AST ALT Alkaline Phosphatase Lactate Dehydrogenase 558 H C-Reactive Protein 2.40 H Total Protein Albumin Arterial Blood Glucose Coronavirus (PCR) 05/09/21 05/09/21 05/10/21 16:43 21:27 10:18 WBC MCH MCHC RDW Lymph % (Auto) [place] % (Auto) Eos % (Auto) Lymph # (Auto) [place] # (Auto) Eos # (Auto) Baso # (Auto) Seg Neutrophils % Seg Neuts % (Manual) Lymphocytes % (Manual) Seg Neutrophils # Seg Neutrophils # Man Lymphocytes # (Manual) D-Dimer ABG pH POC ABG pCO2 POC ABG pO2 ABG pO2 ABG HCO3 ABG O2 Saturation ABG Base Excess ABG Oxyhemoglobin ABG Sodium ABG Chloride ABG Glucose Oxyhemoglobin Carboxyhemoglobin Sodium Potassium Chloride Carbon Dioxide BUN Creatinine Glucose POC Glucose 212 H 285 H 261 H Hemoglobin A1c Ferritin AST ALT Alkaline Phosphatase Lactate Dehydrogenase C-Reactive Protein Total Protein Albumin Arterial Blood Glucose Coronavirus (PCR) 05/10/21 05/10/21 05/11/21 17:58 18:02 00:29 WBC MCH MCHC RDW Lymph % (Auto) [place] % (Auto) Eos % (Auto) Lymph # (Auto) [place] # (Auto) Eos # (Auto) Baso # (Auto) Seg Neutrophils % Seg Neuts % (Manual) Lymphocytes % (Manual) Seg Neutrophils # Seg Neutrophils # Man Lymphocytes # (Manual) D-Dimer ABG pH POC ABG pCO2 POC ABG pO2 ABG pO2 ABG HCO3 ABG O2 Saturation ABG Base Excess ABG Oxyhemoglobin ABG Sodium ABG Chloride ABG Glucose Oxyhemoglobin Carboxyhemoglobin Sodium Potassium Chloride Carbon Dioxide BUN Creatinine Glucose POC Glucose 213 H 179 H 149 H Hemoglobin A1c Ferritin AST ALT Alkaline Phosphatase Lactate Dehydrogenase C-Reactive Protein Total Protein Albumin Arterial Blood Glucose Coronavirus (PCR) 05/11/21 05/11/21 05/11/21 05:22 11:32 17:00 WBC 14.9 H MCH MCHC RDW 18.9 H Lymph % (Auto) 4.9 L [place] % (Auto) Eos % (Auto) Lymph # (Auto) 0.7 L [place] # (Auto) Eos # (Auto) Baso # (Auto) 0.2 H Seg Neutrophils % Seg Neuts % (Manual) Lymphocytes % (Manual) Seg Neutrophils # 13.3 H Seg Neutrophils # Man Lymphocytes # (Manual) D-Dimer ABG pH POC ABG pCO2 POC ABG pO2 ABG pO2 ABG HCO3 ABG O2 Saturation ABG Base Excess ABG Oxyhemoglobin ABG Sodium ABG Chloride ABG Glucose Oxyhemoglobin Carboxyhemoglobin Sodium Potassium Chloride Carbon Dioxide BUN Creatinine Glucose POC Glucose 162 H 179 H Hemoglobin A1c Ferritin AST ALT Alkaline Phosphatase Lactate Dehydrogenase C-Reactive Protein Total Protein Albumin Arterial Blood Glucose Coronavirus (PCR) 05/11/21 05/11/21 05/11/21 17:00 17:33 22:03 WBC MCH MCHC RDW Lymph % (Auto) [place] % (Auto) Eos % (Auto) Lymph # (Auto) [place] # (Auto) Eos # (Auto) Baso # (Auto) Seg Neutrophils % Seg Neuts % (Manual) Lymphocytes % (Manual) Seg Neutrophils # Seg Neutrophils # Man Lymphocytes # (Manual) D-Dimer ABG pH POC ABG pCO2 POC ABG pO2 ABG pO2 ABG HCO3 ABG O2 Saturation ABG Base Excess ABG Oxyhemoglobin ABG Sodium ABG Chloride ABG Glucose Oxyhemoglobin Carboxyhemoglobin Sodium 135 L Potassium Chloride 97.3 L Carbon Dioxide BUN 21 H Creatinine 0.3 L Glucose 133 H POC Glucose 140 H 282 H Hemoglobin A1c Ferritin AST ALT 60 H Alkaline Phosphatase Lactate Dehydrogenase C-Reactive Protein Total Protein Albumin 3.1 L Arterial Blood Glucose Coronavirus (PCR) 05/12/21 05/12/21 05/12/21 04:05 04:05 04:05 WBC MCH MCHC RDW 18.4 H Lymph % (Auto) [place] % (Auto) Eos % (Auto) Lymph # (Auto) [place] # (Auto) Eos # (Auto) Baso # (Auto) Seg Neutrophils % Seg Neuts % (Manual) 94.0 H Lymphocytes % (Manual) 4.0 L Seg Neutrophils # Seg Neutrophils # Man Lymphocytes # (Manual) 0.3 L D-Dimer ABG pH POC ABG pCO2 POC ABG pO2 ABG pO2 ABG HCO3 ABG O2 Saturation ABG Base Excess ABG Oxyhemoglobin ABG Sodium ABG Chloride ABG Glucose Oxyhemoglobin Carboxyhemoglobin Sodium 136 L Potassium Chloride Carbon Dioxide BUN 18 H Creatinine 0.2 L Glucose 142 H POC Glucose Hemoglobin A1c Ferritin 350.7 H AST ALT Alkaline Phosphatase Lactate Dehydrogenase 546 H C-Reactive Protein Total Protein 6.1 L Albumin 3.0 L Arterial Blood Glucose Coronavirus (PCR) 05/12/21 05/12/21 05/12/21 05:11 11:17 16:27 WBC MCH MCHC RDW Lymph % (Auto) [place] % (Auto) Eos % (Auto) Lymph # (Auto) [place] # (Auto) Eos # (Auto) Baso # (Auto) Seg Neutrophils % Seg Neuts % (Manual) Lymphocytes % (Manual) Seg Neutrophils # Seg Neutrophils # Man Lymphocytes # (Manual) D-Dimer ABG pH POC ABG pCO2 POC ABG pO2 ABG pO2 ABG HCO3 ABG O2 Saturation ABG Base Excess ABG Oxyhemoglobin ABG Sodium ABG Chloride ABG Glucose Oxyhemoglobin Carboxyhemoglobin Sodium Potassium Chloride Carbon Dioxide BUN Creatinine Glucose POC Glucose 152 H 190 H 261 H Hemoglobin A1c Ferritin AST ALT Alkaline Phosphatase Lactate Dehydrogenase C-Reactive Protein Total Protein Albumin Arterial Blood Glucose Coronavirus (PCR) 05/12/21 05/13/21 05/13/21 20:55 11:08 21:41 WBC MCH MCHC RDW Lymph % (Auto) Merrick % (Auto) Eos % (Auto) Lymph # (Auto) Merrick # (Auto) Eos # (Auto) Baso # (Auto) Seg Neutrophils % Seg Neuts % (Manual) Lymphocytes % (Manual) Seg Neutrophils # Seg Neutrophils # Man Lymphocytes # (Manual) D-Dimer ABG pH POC ABG pCO2 POC ABG pO2 ABG pO2 ABG HCO3 ABG O2 Saturation ABG Base Excess ABG Oxyhemoglobin ABG Sodium ABG Chloride ABG Glucose Oxyhemoglobin Carboxyhemoglobin Sodium Potassium Chloride Carbon Dioxide BUN Creatinine Glucose POC Glucose 231 H 106 H 174 H Hemoglobin A1c Ferritin AST ALT Alkaline Phosphatase Lactate Dehydrogenase C-Reactive Protein Total Protein Albumin Arterial Blood Glucose Coronavirus (PCR) 05/14/21 05/14/21 05/14/21 00:53 02:23 06:06 WBC MCH MCHC RDW Lymph % (Auto) [place] % (Auto) Eos % (Auto) Lymph # (Auto) [place] # (Auto) Eos # (Auto) Baso # (Auto) Seg Neutrophils % Seg Neuts % (Manual) Lymphocytes % (Manual) Seg Neutrophils # Seg Neutrophils # Man Lymphocytes # (Manual) D-Dimer ABG pH POC ABG pCO2 POC ABG pO2 ABG pO2 130.3 H ABG HCO3 30.6 H ABG O2 Saturation ABG Base Excess 4.9 H ABG Oxyhemoglobin ABG Sodium ABG Chloride ABG Glucose Oxyhemoglobin Carboxyhemoglobin Sodium Potassium Chloride Carbon Dioxide BUN Creatinine Glucose POC Glucose 229 H 119 H Hemoglobin A1c Ferritin AST ALT Alkaline Phosphatase Lactate Dehydrogenase C-Reactive Protein Total Protein Albumin Arterial Blood Glucose Coronavirus (PCR) 05/14/21 05/14/21 05/14/21 07:13 07:13 07:13 WBC MCH MCHC RDW Lymph % (Auto) [place] % (Auto) Eos % (Auto) Lymph # (Auto) [place] # (Auto) Eos # (Auto) Baso # (Auto) Seg Neutrophils % Seg Neuts % (Manual) Lymphocytes % (Manual) Seg Neutrophils # Seg Neutrophils # Man Lymphocytes # (Manual) D-Dimer 712.80 H ABG pH POC ABG pCO2 POC ABG pO2 ABG pO2 ABG HCO3 ABG O2 Saturation ABG Base Excess ABG Oxyhemoglobin ABG Sodium ABG Chloride ABG Glucose Oxyhemoglobin Carboxyhemoglobin Sodium 133 L Potassium Chloride 95.5 L Carbon Dioxide 32 H BUN Creatinine 0.2 L Glucose 137 H POC Glucose Hemoglobin A1c Ferritin 283.5 H AST ALT 63 H Alkaline Phosphatase Lactate Dehydrogenase 563 H C-Reactive Protein Total Protein 6.1 L Albumin 3.0 L Arterial Blood Glucose Coronavirus (PCR) 05/14/21 05/14/21 05/14/21 12:21 15:33 21:50 WBC MCH MCHC RDW Lymph % (Auto) [place] % (Auto) Eos % (Auto) Lymph # (Auto) [place] # (Auto) Eos # (Auto) Baso # (Auto) Seg Neutrophils % Seg Neuts % (Manual) Lymphocytes % (Manual) Seg Neutrophils # Seg Neutrophils # Man Lymphocytes # (Manual) D-Dimer ABG pH POC ABG pCO2 POC ABG pO2 ABG pO2 ABG HCO3 ABG O2 Saturation ABG Base Excess ABG Oxyhemoglobin ABG Sodium ABG Chloride ABG Glucose Oxyhemoglobin Carboxyhemoglobin Sodium Potassium Chloride Carbon Dioxide BUN Creatinine Glucose POC Glucose 143 H 204 H 202 H Hemoglobin A1c Ferritin AST ALT Alkaline Phosphatase Lactate Dehydrogenase C-Reactive Protein Total Protein Albumin Arterial Blood Glucose Coronavirus (PCR) 05/15/21 05/15/21 05/15/21 05:05 11:12 16:39 WBC MCH MCHC RDW Lymph % (Auto) [place] % (Auto) Eos % (Auto) Lymph # (Auto) [place] # (Auto) Eos # (Auto) Baso # (Auto) Seg Neutrophils % Seg Neuts % (Manual) Lymphocytes % (Manual) Seg Neutrophils # Seg Neutrophils # Man Lymphocytes # (Manual) D-Dimer ABG pH POC ABG pCO2 POC ABG pO2 ABG pO2 ABG HCO3 ABG O2 Saturation ABG Base Excess ABG Oxyhemoglobin ABG Sodium ABG Chloride ABG Glucose Oxyhemoglobin Carboxyhemoglobin Sodium Potassium Chloride Carbon Dioxide BUN Creatinine Glucose POC Glucose 125 H 201 H 241 H Hemoglobin A1c Ferritin AST ALT Alkaline Phosphatase Lactate Dehydrogenase C-Reactive Protein Total Protein Albumin Arterial Blood Glucose Coronavirus (PCR) 05/15/21 05/16/21 05/16/21 21:31 05:04 10:40 WBC MCH MCHC RDW Lymph % (Auto) [place] % (Auto) Eos % (Auto) Lymph # (Auto) [place] # (Auto) Eos # (Auto) Baso # (Auto) Seg Neutrophils % Seg Neuts % (Manual) Lymphocytes % (Manual) Seg Neutrophils # Seg Neutrophils # Man Lymphocytes # (Manual) D-Dimer ABG pH POC ABG pCO2 POC ABG pO2 ABG pO2 ABG HCO3 ABG O2 Saturation ABG Base Excess ABG Oxyhemoglobin ABG Sodium ABG Chloride ABG Glucose Oxyhemoglobin Carboxyhemoglobin Sodium Potassium Chloride Carbon Dioxide BUN Creatinine Glucose POC Glucose 234 H 123 H 231 H Hemoglobin A1c Ferritin AST ALT Alkaline Phosphatase Lactate Dehydrogenase C-Reactive Protein Total Protein Albumin Arterial Blood Glucose Coronavirus (PCR) 05/16/21 05/16/21 05/17/21 18:23 21:29 06:20 WBC MCH MCHC RDW 18.8 H Lymph % (Auto) 10.2 L [place] % (Auto) Eos % (Auto) Lymph # (Auto) 0.8 L [place] # (Auto) Eos # (Auto) Baso # (Auto) Seg Neutrophils % 85.8 H Seg Neuts % (Manual) Lymphocytes % (Manual) Seg Neutrophils # Seg Neutrophils # Man Lymphocytes # (Manual) D-Dimer ABG pH POC ABG pCO2 POC ABG pO2 ABG pO2 ABG HCO3 ABG O2 Saturation ABG Base Excess ABG Oxyhemoglobin ABG Sodium ABG Chloride ABG Glucose Oxyhemoglobin Carboxyhemoglobin Sodium Potassium Chloride Carbon Dioxide BUN Creatinine Glucose POC Glucose 266 H 234 H Hemoglobin A1c Ferritin AST ALT Alkaline Phosphatase Lactate Dehydrogenase C-Reactive Protein Total Protein Albumin Arterial Blood Glucose Coronavirus (PCR) 05/17/21 05/17/21 05/17/21 06:20 11:06 16:36 WBC MCH MCHC RDW Lymph % (Auto) [place] % (Auto) Eos % (Auto) Lymph # (Auto) [place] # (Auto) Eos # (Auto) Baso # (Auto) Seg Neutrophils % Seg Neuts % (Manual) Lymphocytes % (Manual) Seg Neutrophils # Seg Neutrophils # Man Lymphocytes # (Manual) D-Dimer ABG pH POC ABG pCO2 POC ABG pO2 ABG pO2 ABG HCO3 ABG O2 Saturation ABG Base Excess ABG Oxyhemoglobin ABG Sodium ABG Chloride ABG Glucose Oxyhemoglobin Carboxyhemoglobin Sodium Potassium Chloride Carbon Dioxide 33 H BUN Creatinine 0.2 L Glucose 101 H POC Glucose 209 H 180 H Hemoglobin A1c Ferritin AST ALT Alkaline Phosphatase Lactate Dehydrogenase C-Reactive Protein Total Protein Albumin Arterial Blood Glucose Coronavirus (PCR) 05/17/21 05/18/21 05/18/21 21:06 12:00 15:06 WBC MCH MCHC RDW Lymph % (Auto) [place] % (Auto) Eos % (Auto) Lymph # (Auto) [place] # (Auto) Eos # (Auto) Baso # (Auto) Seg Neutrophils % Seg Neuts % (Manual) Lymphocytes % (Manual) Seg Neutrophils # Seg Neutrophils # Man Lymphocytes # (Manual) D-Dimer 874.02 H ABG pH POC ABG pCO2 POC ABG pO2 ABG pO2 ABG HCO3 ABG O2 Saturation ABG Base Excess ABG Oxyhemoglobin ABG Sodium ABG Chloride ABG Glucose Oxyhemoglobin Carboxyhemoglobin Sodium Potassium Chloride Carbon Dioxide BUN Creatinine Glucose POC Glucose 256 H 139 H Hemoglobin A1c Ferritin AST ALT Alkaline Phosphatase Lactate Dehydrogenase C-Reactive Protein Total Protein Albumin Arterial Blood Glucose Coronavirus (PCR) 05/18/21 05/18/21 05/18/21 15:06 15:06 16:08 WBC MCH MCHC RDW Lymph % (Auto) [place] % (Auto) Eos % (Auto) Lymph # (Auto) [place] # (Auto) Eos # (Auto) Baso # (Auto) Seg Neutrophils % Seg Neuts % (Manual) Lymphocytes % (Manual) Seg Neutrophils # Seg Neutrophils # Man Lymphocytes # (Manual) D-Dimer ABG pH POC ABG pCO2 POC ABG pO2 ABG pO2 ABG HCO3 ABG O2 Saturation ABG Base Excess ABG Oxyhemoglobin ABG Sodium ABG Chloride ABG Glucose Oxyhemoglobin Carboxyhemoglobin Sodium Potassium Chloride Carbon Dioxide BUN Creatinine Glucose POC Glucose 178 H Hemoglobin A1c Ferritin 289.6 H AST ALT Alkaline Phosphatase Lactate Dehydrogenase 605 H C-Reactive Protein Total Protein Albumin Arterial Blood Glucose Coronavirus (PCR) 05/18/21 05/19/21 05/19/21 21:22 11:57 15:26 WBC MCH MCHC RDW Lymph % (Auto) [place] % (Auto) Eos % (Auto) Lymph # (Auto) [place] # (Auto) Eos # (Auto) Baso # (Auto) Seg Neutrophils % Seg Neuts % (Manual) Lymphocytes % (Manual) Seg Neutrophils # Seg Neutrophils # Man Lymphocytes # (Manual) D-Dimer ABG pH POC ABG pCO2 POC ABG pO2 ABG pO2 ABG HCO3 ABG O2 Saturation ABG Base Excess ABG Oxyhemoglobin ABG Sodium ABG Chloride ABG Glucose Oxyhemoglobin Carboxyhemoglobin Sodium Potassium Chloride Carbon Dioxide BUN Creatinine Glucose POC Glucose 241 H 201 H 209 H Hemoglobin A1c Ferritin AST ALT Alkaline Phosphatase Lactate Dehydrogenase C-Reactive Protein Total Protein Albumin Arterial Blood Glucose Coronavirus (PCR) 05/19/21 05/20/21 05/20/21 20:59 07:38 08:01 WBC MCH MCHC RDW 19.7 H Lymph % (Auto) 8.3 L [place] % (Auto) Eos % (Auto) Lymph # (Auto) 0.8 L [place] # (Auto) Eos # (Auto) Baso # (Auto) Seg Neutrophils % 88.6 H Seg Neuts % (Manual) Lymphocytes % (Manual) Seg Neutrophils # 8.4 H Seg Neutrophils # Man Lymphocytes # (Manual) D-Dimer ABG pH POC ABG pCO2 POC ABG pO2 ABG pO2 ABG HCO3 ABG O2 Saturation ABG Base Excess ABG Oxyhemoglobin ABG Sodium ABG Chloride ABG Glucose Oxyhemoglobin Carboxyhemoglobin Sodium Potassium Chloride Carbon Dioxide BUN Creatinine Glucose POC Glucose 226 H 130 H Hemoglobin A1c Ferritin AST ALT Alkaline Phosphatase Lactate Dehydrogenase C-Reactive Protein Total Protein Albumin Arterial Blood Glucose Coronavirus (PCR) 05/20/21 05/20/21 05/20/21 08:01 11:00 16:43 WBC MCH MCHC RDW Lymph % (Auto) [place] % (Auto) Eos % (Auto) Lymph # (Auto) [place] # (Auto) Eos # (Auto) Baso # (Auto) Seg Neutrophils % Seg Neuts % (Manual) Lymphocytes % (Manual) Seg Neutrophils # Seg Neutrophils # Man Lymphocytes # (Manual) D-Dimer ABG pH POC ABG pCO2 POC ABG pO2 ABG pO2 ABG HCO3 ABG O2 Saturation ABG Base Excess ABG Oxyhemoglobin ABG Sodium ABG Chloride ABG Glucose Oxyhemoglobin Carboxyhemoglobin Sodium Potassium Chloride Carbon Dioxide BUN 18 H Creatinine 0.2 L Glucose 132 H POC Glucose 237 H 240 H Hemoglobin A1c Ferritin AST ALT Alkaline Phosphatase Lactate Dehydrogenase C-Reactive Protein Total Protein Albumin Arterial Blood Glucose Coronavirus (PCR) 05/20/21 05/21/21 05/21/21 21:21 07:35 11:32 WBC MCH MCHC RDW Lymph % (Auto) [place] % (Auto) Eos % (Auto) Lymph # (Auto) [place] # (Auto) Eos # (Auto) Baso # (Auto) Seg Neutrophils % Seg Neuts % (Manual) Lymphocytes % (Manual) Seg Neutrophils # Seg Neutrophils # Man Lymphocytes # (Manual) D-Dimer ABG pH POC ABG pCO2 POC ABG pO2 ABG pO2 ABG HCO3 ABG O2 Saturation ABG Base Excess ABG Oxyhemoglobin ABG Sodium ABG Chloride ABG Glucose Oxyhemoglobin Carboxyhemoglobin Sodium Potassium Chloride Carbon Dioxide BUN Creatinine Glucose POC Glucose 241 H 162 H 171 H Hemoglobin A1c Ferritin AST ALT Alkaline Phosphatase Lactate Dehydrogenase C-Reactive Protein Total Protein Albumin Arterial Blood Glucose Coronavirus (PCR) 05/21/21 05/21/21 05/22/21 16:22 20:43 05:14 WBC MCH MCHC RDW Lymph % (Auto) [place] % (Auto) Eos % (Auto) Lymph # (Auto) [place] # (Auto) Eos # (Auto) Baso # (Auto) Seg Neutrophils % Seg Neuts % (Manual) Lymphocytes % (Manual) Seg Neutrophils # Seg Neutrophils # Man Lymphocytes # (Manual) D-Dimer ABG pH POC ABG pCO2 POC ABG pO2 ABG pO2 ABG HCO3 ABG O2 Saturation ABG Base Excess ABG Oxyhemoglobin ABG Sodium ABG Chloride ABG Glucose Oxyhemoglobin Carboxyhemoglobin Sodium Potassium Chloride Carbon Dioxide BUN Creatinine Glucose POC Glucose 244 H 299 H 140 H Hemoglobin A1c Ferritin AST ALT Alkaline Phosphatase Lactate Dehydrogenase C-Reactive Protein Total Protein Albumin Arterial Blood Glucose Coronavirus (PCR) 05/22/21 05/22/21 05/22/21 08:45 11:54 16:15 WBC MCH MCHC RDW Lymph % (Auto) [place] % (Auto) Eos % (Auto) Lymph # (Auto) [place] # (Auto) Eos # (Auto) Baso # (Auto) Seg Neutrophils % Seg Neuts % (Manual) Lymphocytes % (Manual) Seg Neutrophils # Seg Neutrophils # Man Lymphocytes # (Manual) D-Dimer ABG pH POC ABG pCO2 POC ABG pO2 ABG pO2 ABG HCO3 ABG O2 Saturation ABG Base Excess ABG Oxyhemoglobin ABG Sodium ABG Chloride ABG Glucose Oxyhemoglobin Carboxyhemoglobin Sodium Potassium Chloride Carbon Dioxide BUN Creatinine Glucose POC Glucose 133 H 265 H 221 H Hemoglobin A1c Ferritin AST ALT Alkaline Phosphatase Lactate Dehydrogenase C-Reactive Protein Total Protein Albumin Arterial Blood Glucose Coronavirus (PCR) 05/22/21 05/23/21 05/23/21 21:43 08:20 09:50 WBC MCH MCHC RDW Lymph % (Auto) [place] % (Auto) Eos % (Auto) Lymph # (Auto) [place] # (Auto) Eos # (Auto) Baso # (Auto) Seg Neutrophils % Seg Neuts % (Manual) Lymphocytes % (Manual) Seg Neutrophils # Seg Neutrophils # Man Lymphocytes # (Manual) D-Dimer 910.38 H ABG pH POC ABG pCO2 POC ABG pO2 ABG pO2 ABG HCO3 ABG O2 Saturation ABG Base Excess ABG Oxyhemoglobin ABG Sodium ABG Chloride ABG Glucose Oxyhemoglobin Carboxyhemoglobin Sodium Potassium Chloride Carbon Dioxide BUN Creatinine Glucose POC Glucose 262 H 140 H Hemoglobin A1c Ferritin AST ALT Alkaline Phosphatase Lactate Dehydrogenase C-Reactive Protein Total Protein Albumin Arterial Blood Glucose Coronavirus (PCR) 05/23/21 05/23/21 05/23/21 09:50 09:50 10:52 WBC MCH MCHC RDW Lymph % (Auto) [place] % (Auto) Eos % (Auto) Lymph # (Auto) [place] # (Auto) Eos # (Auto) Baso # (Auto) Seg Neutrophils % Seg Neuts % (Manual) Lymphocytes % (Manual) Seg Neutrophils # Seg Neutrophils # Man Lymphocytes # (Manual) D-Dimer ABG pH POC ABG pCO2 POC ABG pO2 ABG pO2 ABG HCO3 ABG O2 Saturation ABG Base Excess ABG Oxyhemoglobin ABG Sodium ABG Chloride ABG Glucose Oxyhemoglobin Carboxyhemoglobin Sodium Potassium Chloride Carbon Dioxide BUN Creatinine Glucose POC Glucose 241 H Hemoglobin A1c Ferritin 244.9 H AST ALT Alkaline Phosphatase Lactate Dehydrogenase 584 H C-Reactive Protein Total Protein Albumin Arterial Blood Glucose Coronavirus (PCR) 05/23/21 05/23/21 05/24/21 17:24 21:52 07:44 WBC MCH MCHC RDW Lymph % (Auto) [place] % (Auto) Eos % (Auto) Lymph # (Auto) [place] # (Auto) Eos # (Auto) Baso # (Auto) Seg Neutrophils % Seg Neuts % (Manual) Lymphocytes % (Manual) Seg Neutrophils # Seg Neutrophils # Man Lymphocytes # (Manual) D-Dimer ABG pH POC ABG pCO2 POC ABG pO2 ABG pO2 ABG HCO3 ABG O2 Saturation ABG Base Excess ABG Oxyhemoglobin ABG Sodium ABG Chloride ABG Glucose Oxyhemoglobin Carboxyhemoglobin Sodium Potassium Chloride Carbon Dioxide BUN Creatinine Glucose POC Glucose 197 H 289 H 161 H Hemoglobin A1c Ferritin AST ALT Alkaline Phosphatase Lactate Dehydrogenase C-Reactive Protein Total Protein Albumin Arterial Blood Glucose Coronavirus (PCR) 05/24/21 05/24/21 05/24/21 11:17 17:51 21:26 WBC MCH MCHC RDW Lymph % (Auto) [place] % (Auto) Eos % (Auto) Lymph # (Auto) [place] # (Auto) Eos # (Auto) Baso # (Auto) Seg Neutrophils % Seg Neuts % (Manual) Lymphocytes % (Manual) Seg Neutrophils # Seg Neutrophils # Man Lymphocytes # (Manual) D-Dimer ABG pH POC ABG pCO2 POC ABG pO2 ABG pO2 ABG HCO3 ABG O2 Saturation ABG Base Excess ABG Oxyhemoglobin ABG Sodium ABG Chloride ABG Glucose Oxyhemoglobin Carboxyhemoglobin Sodium Potassium Chloride Carbon Dioxide BUN Creatinine Glucose POC Glucose 308 H 175 H 198 H Hemoglobin A1c Ferritin AST ALT Alkaline Phosphatase Lactate Dehydrogenase C-Reactive Protein Total Protein Albumin Arterial Blood Glucose Coronavirus (PCR) 05/25/21 05/25/21 05/25/21 08:14 11:13 17:13 WBC MCH MCHC RDW Lymph % (Auto) [place] % (Auto) Eos % (Auto) Lymph # (Auto) [place] # (Auto) Eos # (Auto) Baso # (Auto) Seg Neutrophils % Seg Neuts % (Manual) Lymphocytes % (Manual) Seg Neutrophils # Seg Neutrophils # Man Lymphocytes # (Manual) D-Dimer ABG pH POC ABG pCO2 POC ABG pO2 ABG pO2 ABG HCO3 ABG O2 Saturation ABG Base Excess ABG Oxyhemoglobin ABG Sodium ABG Chloride ABG Glucose Oxyhemoglobin Carboxyhemoglobin Sodium Potassium Chloride Carbon Dioxide BUN Creatinine Glucose POC Glucose 203 H 339 H 235 H Hemoglobin A1c Ferritin AST ALT Alkaline Phosphatase Lactate Dehydrogenase C-Reactive Protein Total Protein Albumin Arterial Blood Glucose Coronavirus (PCR) 05/25/21 05/26/21 05/26/21 21:03 07:33 11:19 WBC MCH MCHC RDW Lymph % (Auto) [place] % (Auto) Eos % (Auto) Lymph # (Auto) [place] # (Auto) Eos # (Auto) Baso # (Auto) Seg Neutrophils % Seg Neuts % (Manual) Lymphocytes % (Manual) Seg Neutrophils # Seg Neutrophils # Man Lymphocytes # (Manual) D-Dimer ABG pH POC ABG pCO2 POC ABG pO2 ABG pO2 ABG HCO3 ABG O2 Saturation ABG Base Excess ABG Oxyhemoglobin ABG Sodium ABG Chloride ABG Glucose Oxyhemoglobin Carboxyhemoglobin Sodium Potassium Chloride Carbon Dioxide BUN Creatinine Glucose POC Glucose 263 H 156 H 288 H Hemoglobin A1c Ferritin AST ALT Alkaline Phosphatase Lactate Dehydrogenase C-Reactive Protein Total Protein Albumin Arterial Blood Glucose Coronavirus (PCR) 05/26/21 05/26/21 05/27/21 16:26 20:55 07:38 WBC MCH MCHC RDW Lymph % (Auto) [place] % (Auto) Eos % (Auto) Lymph # (Auto) [place] # (Auto) Eos # (Auto) Baso # (Auto) Seg Neutrophils % Seg Neuts % (Manual) Lymphocytes % (Manual) Seg Neutrophils # Seg Neutrophils # Man Lymphocytes # (Manual) D-Dimer ABG pH POC ABG pCO2 POC ABG pO2 ABG pO2 ABG HCO3 ABG O2 Saturation ABG Base Excess ABG Oxyhemoglobin ABG Sodium ABG Chloride ABG Glucose Oxyhemoglobin Carboxyhemoglobin Sodium Potassium Chloride Carbon Dioxide BUN Creatinine Glucose POC Glucose 286 H 293 H 115 H Hemoglobin A1c Ferritin AST ALT Alkaline Phosphatase Lactate Dehydrogenase C-Reactive Protein Total Protein Albumin Arterial Blood Glucose Coronavirus (PCR) 05/27/21 05/27/21 05/27/21 11:46 15:58 21:02 WBC MCH MCHC RDW Lymph % (Auto) [place] % (Auto) Eos % (Auto) Lymph # (Auto) [place] # (Auto) Eos # (Auto) Baso # (Auto) Seg Neutrophils % Seg Neuts % (Manual) Lymphocytes % (Manual) Seg Neutrophils # Seg Neutrophils # Man Lymphocytes # (Manual) D-Dimer ABG pH POC ABG pCO2 POC ABG pO2 ABG pO2 ABG HCO3 ABG O2 Saturation ABG Base Excess ABG Oxyhemoglobin ABG Sodium ABG Chloride ABG Glucose Oxyhemoglobin Carboxyhemoglobin Sodium Potassium Chloride Carbon Dioxide BUN Creatinine Glucose POC Glucose 260 H 318 H 246 H Hemoglobin A1c Ferritin AST ALT Alkaline Phosphatase Lactate Dehydrogenase C-Reactive Protein Total Protein Albumin Arterial Blood Glucose Coronavirus (PCR) 05/28/21 05/28/21 05/28/21 07:34 11:31 16:36 WBC MCH MCHC RDW Lymph % (Auto) [place] % (Auto) Eos % (Auto) Lymph # (Auto) [place] # (Auto) Eos # (Auto) Baso # (Auto) Seg Neutrophils % Seg Neuts % (Manual) Lymphocytes % (Manual) Seg Neutrophils # Seg Neutrophils # Man Lymphocytes # (Manual) D-Dimer ABG pH POC ABG pCO2 POC ABG pO2 ABG pO2 ABG HCO3 ABG O2 Saturation ABG Base Excess ABG Oxyhemoglobin ABG Sodium ABG Chloride ABG Glucose Oxyhemoglobin Carboxyhemoglobin Sodium Potassium Chloride Carbon Dioxide BUN Creatinine Glucose POC Glucose 185 H 297 H 183 H Hemoglobin A1c Ferritin AST ALT Alkaline Phosphatase Lactate Dehydrogenase C-Reactive Protein Total Protein Albumin Arterial Blood Glucose Coronavirus (PCR) 05/28/21 05/29/21 05/29/21 21:19 07:34 11:19 WBC MCH MCHC RDW Lymph % (Auto) [place] % (Auto) Eos % (Auto) Lymph # (Auto) [place] # (Auto) Eos # (Auto) Baso # (Auto) Seg Neutrophils % Seg Neuts % (Manual) Lymphocytes % (Manual) Seg Neutrophils # Seg Neutrophils # Man Lymphocytes # (Manual) D-Dimer ABG pH POC ABG pCO2 POC ABG pO2 ABG pO2 ABG HCO3 ABG O2 Saturation ABG Base Excess ABG Oxyhemoglobin ABG Sodium ABG Chloride ABG Glucose Oxyhemoglobin Carboxyhemoglobin Sodium Potassium Chloride Carbon Dioxide BUN Creatinine Glucose POC Glucose 274 H 139 H 293 H Hemoglobin A1c Ferritin AST ALT Alkaline Phosphatase Lactate Dehydrogenase C-Reactive Protein Total Protein Albumin Arterial Blood Glucose Coronavirus (PCR) 05/29/21 05/29/21 05/30/21 16:36 22:44 05:55 WBC MCH MCHC RDW 21.3 H Lymph % (Auto) 8.0 L [place] % (Auto) Eos % (Auto) Lymph # (Auto) 0.6 L [place] # (Auto) Eos # (Auto) Baso # (Auto) Seg Neutrophils % 88.6 H Seg Neuts % (Manual) Lymphocytes % (Manual) Seg Neutrophils # Seg Neutrophils # Man Lymphocytes # (Manual) D-Dimer ABG pH POC ABG pCO2 POC ABG pO2 ABG pO2 ABG HCO3 ABG O2 Saturation ABG Base Excess ABG Oxyhemoglobin ABG Sodium ABG Chloride ABG Glucose Oxyhemoglobin Carboxyhemoglobin Sodium Potassium Chloride Carbon Dioxide BUN Creatinine Glucose POC Glucose 299 H 160 H Hemoglobin A1c Ferritin AST ALT Alkaline Phosphatase Lactate Dehydrogenase C-Reactive Protein Total Protein Albumin Arterial Blood Glucose Coronavirus (PCR) 05/30/21 05/30/21 05/30/21 05:55 08:04 11:13 WBC MCH MCHC RDW Lymph % (Auto) [place] % (Auto) Eos % (Auto) Lymph # (Auto) [place] # (Auto) Eos # (Auto) Baso # (Auto) Seg Neutrophils % Seg Neuts % (Manual) Lymphocytes % (Manual) Seg Neutrophils # Seg Neutrophils # Man Lymphocytes # (Manual) D-Dimer ABG pH POC ABG pCO2 POC ABG pO2 ABG pO2 ABG HCO3 ABG O2 Saturation ABG Base Excess ABG Oxyhemoglobin ABG Sodium ABG Chloride ABG Glucose Oxyhemoglobin Carboxyhemoglobin Sodium Potassium Chloride Carbon Dioxide BUN 19 H Creatinine 0.2 L Glucose 209 H POC Glucose 157 H 275 H Hemoglobin A1c Ferritin AST ALT Alkaline Phosphatase Lactate Dehydrogenase C-Reactive Protein Total Protein Albumin Arterial Blood Glucose Coronavirus (PCR) 05/30/21 05/30/21 05/31/21 17:08 22:12 07:36 WBC MCH MCHC RDW Lymph % (Auto) [place] % (Auto) Eos % (Auto) Lymph # (Auto) [place] # (Auto) Eos # (Auto) Baso # (Auto) Seg Neutrophils % Seg Neuts % (Manual) Lymphocytes % (Manual) Seg Neutrophils # Seg Neutrophils # Man Lymphocytes # (Manual) D-Dimer ABG pH POC ABG pCO2 POC ABG pO2 ABG pO2 ABG HCO3 ABG O2 Saturation ABG Base Excess ABG Oxyhemoglobin ABG Sodium ABG Chloride ABG Glucose Oxyhemoglobin Carboxyhemoglobin Sodium Potassium Chloride Carbon Dioxide BUN Creatinine Glucose POC Glucose 154 H 275 H 138 H Hemoglobin A1c Ferritin AST ALT Alkaline Phosphatase Lactate Dehydrogenase C-Reactive Protein Total Protein Albumin Arterial Blood Glucose Coronavirus (PCR) 05/31/21 05/31/21 05/31/21 11:17 16:55 21:25 WBC MCH MCHC RDW Lymph % (Auto) [place] % (Auto) Eos % (Auto) Lymph # (Auto) [place] # (Auto) Eos # (Auto) Baso # (Auto) Seg Neutrophils % Seg Neuts % (Manual) Lymphocytes % (Manual) Seg Neutrophils # Seg Neutrophils # Man Lymphocytes # (Manual) D-Dimer ABG pH POC ABG pCO2 POC ABG pO2 ABG pO2 ABG HCO3 ABG O2 Saturation ABG Base Excess ABG Oxyhemoglobin ABG Sodium ABG Chloride ABG Glucose Oxyhemoglobin Carboxyhemoglobin Sodium Potassium Chloride Carbon Dioxide BUN Creatinine Glucose POC Glucose 258 H 215 H 318 H Hemoglobin A1c Ferritin AST ALT Alkaline Phosphatase Lactate Dehydrogenase C-Reactive Protein Total Protein Albumin Arterial Blood Glucose Coronavirus (PCR) 06/01/21 06/01/21 06/01/21 07:23 11:38 16:52 WBC MCH MCHC RDW Lymph % (Auto) [place] % (Auto) Eos % (Auto) Lymph # (Auto) [place] # (Auto) Eos # (Auto) Baso # (Auto) Seg Neutrophils % Seg Neuts % (Manual) Lymphocytes % (Manual) Seg Neutrophils # Seg Neutrophils # Man Lymphocytes # (Manual) D-Dimer ABG pH POC ABG pCO2 POC ABG pO2 ABG pO2 ABG HCO3 ABG O2 Saturation ABG Base Excess ABG Oxyhemoglobin ABG Sodium ABG Chloride ABG Glucose Oxyhemoglobin Carboxyhemoglobin Sodium Potassium Chloride Carbon Dioxide BUN Creatinine Glucose POC Glucose 157 H 259 H 150 H Hemoglobin A1c Ferritin AST ALT Alkaline Phosphatase Lactate Dehydrogenase C-Reactive Protein Total Protein Albumin Arterial Blood Glucose Coronavirus (PCR) 06/01/21 06/02/21 06/02/21 23:16 05:34 05:34 WBC MCH MCHC RDW 21.3 H Lymph % (Auto) 9.6 L [place] % (Auto) Eos % (Auto) Lymph # (Auto) 0.6 L [place] # (Auto) Eos # (Auto) Baso # (Auto) Seg Neutrophils % 86.2 H Seg Neuts % (Manual) Lymphocytes % (Manual) Seg Neutrophils # Seg Neutrophils # Man Lymphocytes # (Manual) D-Dimer ABG pH POC ABG pCO2 POC ABG pO2 ABG pO2 ABG HCO3 ABG O2 Saturation ABG Base Excess ABG Oxyhemoglobin ABG Sodium ABG Chloride ABG Glucose Oxyhemoglobin Carboxyhemoglobin Sodium 136 L Potassium Chloride Carbon Dioxide BUN Creatinine 0.2 L Glucose 186 H POC Glucose 247 H Hemoglobin A1c Ferritin AST ALT 69 H Alkaline Phosphatase Lactate Dehydrogenase C-Reactive Protein Total Protein 6.1 L Albumin 3.2 L Arterial Blood Glucose Coronavirus (PCR) 06/02/21 06/02/21 06/02/21 11:25 18:23 21:32 WBC MCH MCHC RDW Lymph % (Auto) [place] % (Auto) Eos % (Auto) Lymph # (Auto) [place] # (Auto) Eos # (Auto) Baso # (Auto) Seg Neutrophils % Seg Neuts % (Manual) Lymphocytes % (Manual) Seg Neutrophils # Seg Neutrophils # Man Lymphocytes # (Manual) D-Dimer ABG pH POC ABG pCO2 POC ABG pO2 ABG pO2 ABG HCO3 ABG O2 Saturation ABG Base Excess ABG Oxyhemoglobin ABG Sodium ABG Chloride ABG Glucose Oxyhemoglobin Carboxyhemoglobin Sodium Potassium Chloride Carbon Dioxide BUN Creatinine Glucose POC Glucose 157 H 299 H 246 H Hemoglobin A1c Ferritin AST ALT Alkaline Phosphatase Lactate Dehydrogenase C-Reactive Protein Total Protein Albumin Arterial Blood Glucose Coronavirus (PCR) 06/03/21 06/03/21 06/03/21 08:12 12:21 17:31 WBC MCH MCHC RDW Lymph % (Auto) [place] % (Auto) Eos % (Auto) Lymph # (Auto) [place]rick # (Auto) Eos # (Auto) Baso # (Auto) Seg Neutrophils % Seg Neuts % (Manual) Lymphocytes % (Manual) Seg Neutrophils # Seg Neutrophils # Man Lymphocytes # (Manual) D-Dimer ABG pH POC ABG pCO2 POC ABG pO2 ABG pO2 ABG HCO3 ABG O2 Saturation ABG Base Excess ABG Oxyhemoglobin ABG Sodium ABG Chloride ABG Glucose Oxyhemoglobin Carboxyhemoglobin Sodium Potassium Chloride Carbon Dioxide BUN Creatinine Glucose POC Glucose 153 H 302 H 252 H Hemoglobin A1c Ferritin AST ALT Alkaline Phosphatase Lactate Dehydrogenase C-Reactive Protein Total Protein Albumin Arterial Blood Glucose Coronavirus (PCR) 06/03/21 06/04/21 06/04/21 22:08 11:12 16:01 WBC MCH MCHC RDW Lymph % (Auto) [place] % (Auto) Eos % (Auto) Lymph # (Auto) [place] # (Auto) Eos # (Auto) Baso # (Auto) Seg Neutrophils % Seg Neuts % (Manual) Lymphocytes % (Manual) Seg Neutrophils # Seg Neutrophils # Man Lymphocytes # (Manual) D-Dimer ABG pH POC ABG pCO2 POC ABG pO2 ABG pO2 ABG HCO3 ABG O2 Saturation ABG Base Excess ABG Oxyhemoglobin ABG Sodium ABG Chloride ABG Glucose Oxyhemoglobin Carboxyhemoglobin Sodium Potassium Chloride Carbon Dioxide BUN Creatinine Glucose POC Glucose 224 H 259 H 238 H Hemoglobin A1c Ferritin AST ALT Alkaline Phosphatase Lactate Dehydrogenase C-Reactive Protein Total Protein Albumin Arterial Blood Glucose Coronavirus (PCR) 06/04/21 06/05/21 06/05/21 21:26 05:26 05:26 WBC MCH MCHC RDW Lymph % (Auto) [place] % (Auto) Eos % (Auto) Lymph # (Auto) [place] # (Auto) Eos # (Auto) Baso # (Auto) Seg Neutrophils % Seg Neuts % (Manual) Lymphocytes % (Manual) Seg Neutrophils # Seg Neutrophils # Man Lymphocytes # (Manual) D-Dimer 488.49 H ABG pH POC ABG pCO2 POC ABG pO2 ABG pO2 ABG HCO3 ABG O2 Saturation ABG Base Excess ABG Oxyhemoglobin ABG Sodium ABG Chloride ABG Glucose Oxyhemoglobin Carboxyhemoglobin Sodium Potassium Chloride Carbon Dioxide BUN Creatinine 0.2 L Glucose 198 H POC Glucose 257 H Hemoglobin A1c Ferritin AST ALT Alkaline Phosphatase Lactate Dehydrogenase 475 H C-Reactive Protein Total Protein Albumin Arterial Blood Glucose Coronavirus (PCR) 06/05/21 06/05/21 06/05/21 07:20 08:30 11:00 WBC MCH MCHC RDW Lymph % (Auto) [place] % (Auto) Eos % (Auto) Lymph # (Auto) [place] # (Auto) Eos # (Auto) Baso # (Auto) Seg Neutrophils % Seg Neuts % (Manual) Lymphocytes % (Manual) Seg Neutrophils # Seg Neutrophils # Man Lymphocytes # (Manual) D-Dimer ABG pH POC ABG pCO2 POC ABG pO2 ABG pO2 ABG HCO3 ABG O2 Saturation ABG Base Excess ABG Oxyhemoglobin ABG Sodium ABG Chloride ABG Glucose Oxyhemoglobin Carboxyhemoglobin Sodium Potassium Chloride Carbon Dioxide BUN Creatinine Glucose POC Glucose 146 H 246 H Hemoglobin A1c Ferritin AST ALT Alkaline Phosphatase Lactate Dehydrogenase C-Reactive Protein Total Protein Albumin Arterial Blood Glucose Coronavirus (PCR) Positive A 06/05/21 06/05/21 06/06/21 16:50 22:30 07:57 WBC MCH MCHC RDW Lymph % (Auto) [place] % (Auto) Eos % (Auto) Lymph # (Auto) [place] # (Auto) Eos # (Auto) Baso # (Auto) Seg Neutrophils % Seg Neuts % (Manual) Lymphocytes % (Manual) Seg Neutrophils # Seg Neutrophils # Man Lymphocytes # (Manual) D-Dimer ABG pH POC ABG pCO2 POC ABG pO2 ABG pO2 ABG HCO3 ABG O2 Saturation ABG Base Excess ABG Oxyhemoglobin ABG Sodium ABG Chloride ABG Glucose Oxyhemoglobin Carboxyhemoglobin Sodium Potassium Chloride Carbon Dioxide BUN Creatinine Glucose POC Glucose 240 H 174 H 120 H Hemoglobin A1c Ferritin AST ALT Alkaline Phosphatase Lactate Dehydrogenase C-Reactive Protein Total Protein Albumin Arterial Blood Glucose Coronavirus (PCR) 06/06/21 06/06/21 06/06/21 11:14 16:50 21:11 WBC MCH MCHC RDW Lymph % (Auto) [place] % (Auto) Eos % (Auto) Lymph # (Auto) [place] # (Auto) Eos # (Auto) Baso # (Auto) Seg Neutrophils % Seg Neuts % (Manual) Lymphocytes % (Manual) Seg Neutrophils # Seg Neutrophils # Man Lymphocytes # (Manual) D-Dimer ABG pH POC ABG pCO2 POC ABG pO2 ABG pO2 ABG HCO3 ABG O2 Saturation ABG Base Excess ABG Oxyhemoglobin ABG Sodium ABG Chloride ABG Glucose Oxyhemoglobin Carboxyhemoglobin Sodium Potassium Chloride Carbon Dioxide BUN Creatinine Glucose POC Glucose 267 H 218 H 124 H Hemoglobin A1c Ferritin AST ALT Alkaline Phosphatase Lactate Dehydrogenase C-Reactive Protein Total Protein Albumin Arterial Blood Glucose Coronavirus (PCR) 06/07/21 06/07/21 06/08/21 11:58 15:59 07:59 WBC MCH MCHC RDW Lymph % (Auto) [place] % (Auto) Eos % (Auto) Lymph # (Auto) [place] # (Auto) Eos # (Auto) Baso # (Auto) Seg Neutrophils % Seg Neuts % (Manual) Lymphocytes % (Manual) Seg Neutrophils # Seg Neutrophils # Man Lymphocytes # (Manual) D-Dimer ABG pH POC ABG pCO2 POC ABG pO2 ABG pO2 ABG HCO3 ABG O2 Saturation ABG Base Excess ABG Oxyhemoglobin ABG Sodium ABG Chloride ABG Glucose Oxyhemoglobin Carboxyhemoglobin Sodium Potassium Chloride Carbon Dioxide BUN Creatinine Glucose POC Glucose 219 H 208 H 192 H Hemoglobin A1c Ferritin AST ALT Alkaline Phosphatase Lactate Dehydrogenase C-Reactive Protein Total Protein Albumin Arterial Blood Glucose Coronavirus (PCR) 06/08/21 06/08/21 06/09/21 11:26 23:28 07:33 WBC MCH MCHC RDW Lymph % (Auto) [place] % (Auto) Eos % (Auto) Lymph # (Auto) [place] # (Auto) Eos # (Auto) Baso # (Auto) Seg Neutrophils % Seg Neuts % (Manual) Lymphocytes % (Manual) Seg Neutrophils # Seg Neutrophils # Man Lymphocytes # (Manual) D-Dimer ABG pH POC ABG pCO2 POC ABG pO2 ABG pO2 ABG HCO3 ABG O2 Saturation ABG Base Excess ABG Oxyhemoglobin ABG Sodium ABG Chloride ABG Glucose Oxyhemoglobin Carboxyhemoglobin Sodium Potassium Chloride Carbon Dioxide BUN Creatinine Glucose POC Glucose 307 H 138 H 145 H Hemoglobin A1c Ferritin AST ALT Alkaline Phosphatase Lactate Dehydrogenase C-Reactive Protein Total Protein Albumin Arterial Blood Glucose Coronavirus (PCR) 06/09/21 06/09/21 06/09/21 11:01 15:47 21:43 WBC MCH MCHC RDW Lymph % (Auto) [place] % (Auto) Eos % (Auto) Lymph # (Auto) [place] # (Auto) Eos # (Auto) Baso # (Auto) Seg Neutrophils % Seg Neuts % (Manual) Lymphocytes % (Manual) Seg Neutrophils # Seg Neutrophils # Man Lymphocytes # (Manual) D-Dimer ABG pH POC ABG pCO2 POC ABG pO2 ABG pO2 ABG HCO3 ABG O2 Saturation ABG Base Excess ABG Oxyhemoglobin ABG Sodium ABG Chloride ABG Glucose Oxyhemoglobin Carboxyhemoglobin Sodium Potassium Chloride Carbon Dioxide BUN Creatinine Glucose POC Glucose 266 H 305 H 223 H Hemoglobin A1c Ferritin AST ALT Alkaline Phosphatase Lactate Dehydrogenase C-Reactive Protein Total Protein Albumin Arterial Blood Glucose Coronavirus (PCR) 06/10/21 06/10/21 06/10/21 08:27 12:10 17:45 WBC MCH MCHC RDW Lymph % (Auto) [place] % (Auto) Eos % (Auto) Lymph # (Auto) [place] # (Auto) Eos # (Auto) Baso # (Auto) Seg Neutrophils % Seg Neuts % (Manual) Lymphocytes % (Manual) Seg Neutrophils # Seg Neutrophils # Man Lymphocytes # (Manual) D-Dimer ABG pH POC ABG pCO2 POC ABG pO2 ABG pO2 ABG HCO3 ABG O2 Saturation ABG Base Excess ABG Oxyhemoglobin ABG Sodium ABG Chloride ABG Glucose Oxyhemoglobin Carboxyhemoglobin Sodium Potassium Chloride Carbon Dioxide BUN Creatinine Glucose POC Glucose 174 H 306 H 210 H Hemoglobin A1c Ferritin AST ALT Alkaline Phosphatase Lactate Dehydrogenase C-Reactive Protein Total Protein Albumin Arterial Blood Glucose Coronavirus (PCR) 06/10/21 06/11/21 06/11/21 21:45 09:38 09:38 WBC MCH MCHC RDW 20.9 H Lymph % (Auto) [place] % (Auto) Eos % (Auto) Lymph # (Auto) [place] # (Auto) Eos # (Auto) Baso # (Auto) Seg Neutrophils % Seg Neuts % (Manual) Lymphocytes % (Manual) Seg Neutrophils # Seg Neutrophils # Man Lymphocytes # (Manual) D-Dimer ABG pH POC ABG pCO2 POC ABG pO2 ABG pO2 ABG HCO3 ABG O2 Saturation ABG Base Excess ABG Oxyhemoglobin ABG Sodium ABG Chloride ABG Glucose Oxyhemoglobin Carboxyhemoglobin Sodium 135 L Potassium Chloride 90.8 L Carbon Dioxide 36 H BUN 29 H Creatinine 0.2 L Glucose 258 H POC Glucose 262 H Hemoglobin A1c Ferritin AST ALT Alkaline Phosphatase Lactate Dehydrogenase C-Reactive Protein Total Protein Albumin Arterial Blood Glucose Coronavirus (PCR) 06/11/21 06/11/21 06/11/21 11:20 15:49 22:57 WBC MCH MCHC RDW Lymph % (Auto) [place] % (Auto) Eos % (Auto) Lymph # (Auto) [place] # (Auto) Eos # (Auto) Baso # (Auto) Seg Neutrophils % Seg Neuts % (Manual) Lymphocytes % (Manual) Seg Neutrophils # Seg Neutrophils # Man Lymphocytes # (Manual) D-Dimer ABG pH POC ABG pCO2 POC ABG pO2 ABG pO2 ABG HCO3 ABG O2 Saturation ABG Base Excess ABG Oxyhemoglobin ABG Sodium ABG Chloride ABG Glucose Oxyhemoglobin Carboxyhemoglobin Sodium Potassium Chloride Carbon Dioxide BUN Creatinine Glucose POC Glucose 269 H 206 H 211 H Hemoglobin A1c Ferritin AST ALT Alkaline Phosphatase Lactate Dehydrogenase C-Reactive Protein Total Protein Albumin Arterial Blood Glucose Coronavirus (PCR) 06/12/21 06/12/21 06/12/21 08:07 11:24 18:08 WBC MCH MCHC RDW Lymph % (Auto) [place] % (Auto) Eos % (Auto) Lymph # (Auto) [place] # (Auto) Eos # (Auto) Baso # (Auto) Seg Neutrophils % Seg Neuts % (Manual) Lymphocytes % (Manual) Seg Neutrophils # Seg Neutrophils # Man Lymphocytes # (Manual) D-Dimer ABG pH POC ABG pCO2 POC ABG pO2 ABG pO2 ABG HCO3 ABG O2 Saturation ABG Base Excess ABG Oxyhemoglobin ABG Sodium ABG Chloride ABG Glucose Oxyhemoglobin Carboxyhemoglobin Sodium Potassium Chloride Carbon Dioxide BUN Creatinine Glucose POC Glucose 149 H 270 H 166 H Hemoglobin A1c Ferritin AST ALT Alkaline Phosphatase Lactate Dehydrogenase C-Reactive Protein Total Protein Albumin Arterial Blood Glucose Coronavirus (PCR) 06/12/21 06/13/21 06/13/21 20:22 07:50 11:18 WBC MCH MCHC RDW Lymph % (Auto) [place] % (Auto) Eos % (Auto) Lymph # (Auto) [place] # (Auto) Eos # (Auto) Baso # (Auto) Seg Neutrophils % Seg Neuts % (Manual) Lymphocytes % (Manual) Seg Neutrophils # Seg Neutrophils # Man Lymphocytes # (Manual) D-Dimer ABG pH POC ABG pCO2 POC ABG pO2 ABG pO2 ABG HCO3 ABG O2 Saturation ABG Base Excess ABG Oxyhemoglobin ABG Sodium ABG Chloride ABG Glucose Oxyhemoglobin Carboxyhemoglobin Sodium Potassium Chloride Carbon Dioxide BUN Creatinine Glucose POC Glucose 155 H 163 H 293 H Hemoglobin A1c Ferritin AST ALT Alkaline Phosphatase Lactate Dehydrogenase C-Reactive Protein Total Protein Albumin Arterial Blood Glucose Coronavirus (PCR) 06/13/21 06/13/21 06/14/21 16:41 21:00 07:41 WBC MCH MCHC RDW Lymph % (Auto) [place] % (Auto) Eos % (Auto) Lymph # (Auto) [place] # (Auto) Eos # (Auto) Baso # (Auto) Seg Neutrophils % Seg Neuts % (Manual) Lymphocytes % (Manual) Seg Neutrophils # Seg Neutrophils # Man Lymphocytes # (Manual) D-Dimer ABG pH POC ABG pCO2 POC ABG pO2 ABG pO2 ABG HCO3 ABG O2 Saturation ABG Base Excess ABG Oxyhemoglobin ABG Sodium ABG Chloride ABG Glucose Oxyhemoglobin Carboxyhemoglobin Sodium Potassium Chloride Carbon Dioxide BUN Creatinine Glucose POC Glucose 232 H 183 H 52 L Hemoglobin A1c Ferritin AST ALT Alkaline Phosphatase Lactate Dehydrogenase C-Reactive Protein Total Protein Albumin Arterial Blood Glucose Coronavirus (PCR) 06/14/21 06/14/21 06/14/21 11:44 17:44 21:44 WBC MCH MCHC RDW Lymph % (Auto) [place] % (Auto) Eos % (Auto) Lymph # (Auto) [place] # (Auto) Eos # (Auto) Baso # (Auto) Seg Neutrophils % Seg Neuts % (Manual) Lymphocytes % (Manual) Seg Neutrophils # Seg Neutrophils # Man Lymphocytes # (Manual) D-Dimer ABG pH POC ABG pCO2 POC ABG pO2 ABG pO2 ABG HCO3 ABG O2 Saturation ABG Base Excess ABG Oxyhemoglobin ABG Sodium ABG Chloride ABG Glucose Oxyhemoglobin Carboxyhemoglobin Sodium Potassium Chloride Carbon Dioxide BUN Creatinine Glucose POC Glucose 205 H 293 H 288 H Hemoglobin A1c Ferritin AST ALT Alkaline Phosphatase Lactate Dehydrogenase C-Reactive Protein Total Protein Albumin Arterial Blood Glucose Coronavirus (PCR) 06/15/21 06/15/21 06/15/21 08:00 08:00 11:40 WBC MCH 33 H MCHC 35 H RDW 20.3 H Lymph % (Auto) [place] % (Auto) Eos % (Auto) Lymph # (Auto) [place] # (Auto) Eos # (Auto) Baso # (Auto) Seg Neutrophils % Seg Neuts % (Manual) Lymphocytes % (Manual) Seg Neutrophils # Seg Neutrophils # Man Lymphocytes # (Manual) D-Dimer ABG pH POC ABG pCO2 POC ABG pO2 ABG pO2 ABG HCO3 ABG O2 Saturation ABG Base Excess ABG Oxyhemoglobin ABG Sodium ABG Chloride ABG Glucose Oxyhemoglobin Carboxyhemoglobin Sodium Potassium 3.2 L Chloride 95.3 L Carbon Dioxide 32 H BUN 23 H Creatinine 0.2 L Glucose 103 H POC Glucose 204 H Hemoglobin A1c Ferritin AST ALT Alkaline Phosphatase Lactate Dehydrogenase C-Reactive Protein Total Protein Albumin Arterial Blood Glucose Coronavirus (PCR) 06/15/21 06/15/21 06/16/21 16:17 22:00 11:43 WBC MCH MCHC RDW Lymph % (Auto) [place] % (Auto) Eos % (Auto) Lymph # (Auto) [place] # (Auto) Eos # (Auto) Baso # (Auto) Seg Neutrophils % Seg Neuts % (Manual) Lymphocytes % (Manual) Seg Neutrophils # Seg Neutrophils # Man Lymphocytes # (Manual) D-Dimer ABG pH POC ABG pCO2 POC ABG pO2 ABG pO2 ABG HCO3 ABG O2 Saturation ABG Base Excess ABG Oxyhemoglobin ABG Sodium ABG Chloride ABG Glucose Oxyhemoglobin Carboxyhemoglobin Sodium Potassium Chloride Carbon Dioxide BUN Creatinine Glucose POC Glucose 295 H 233 H 201 H Hemoglobin A1c Ferritin AST ALT Alkaline Phosphatase Lactate Dehydrogenase C-Reactive Protein Total Protein Albumin Arterial Blood Glucose Coronavirus (PCR) 06/16/21 06/16/21 06/17/21 17:21 21:27 07:12 WBC MCH MCHC RDW Lymph % (Auto) [place] % (Auto) Eos % (Auto) Lymph # (Auto) [place] # (Auto) Eos # (Auto) Baso # (Auto) Seg Neutrophils % Seg Neuts % (Manual) Lymphocytes % (Manual) Seg Neutrophils # Seg Neutrophils # Man Lymphocytes # (Manual) D-Dimer ABG pH POC ABG pCO2 POC ABG pO2 ABG pO2 ABG HCO3 ABG O2 Saturation ABG Base Excess ABG Oxyhemoglobin ABG Sodium ABG Chloride ABG Glucose Oxyhemoglobin Carboxyhemoglobin Sodium Potassium Chloride Carbon Dioxide BUN Creatinine Glucose POC Glucose 299 H 290 H 67 L Hemoglobin A1c Ferritin AST ALT Alkaline Phosphatase Lactate Dehydrogenase C-Reactive Protein Total Protein Albumin Arterial Blood Glucose Coronavirus (PCR) 06/17/21 06/17/21 06/17/21 11:53 17:02 22:25 WBC MCH MCHC RDW Lymph % (Auto) [place] % (Auto) Eos % (Auto) Lymph # (Auto) [place] # (Auto) Eos # (Auto) Baso # (Auto) Seg Neutrophils % Seg Neuts % (Manual) Lymphocytes % (Manual) Seg Neutrophils # Seg Neutrophils # Man Lymphocytes # (Manual) D-Dimer ABG pH POC ABG pCO2 POC ABG pO2 ABG pO2 ABG HCO3 ABG O2 Saturation ABG Base Excess ABG Oxyhemoglobin ABG Sodium ABG Chloride ABG Glucose Oxyhemoglobin Carboxyhemoglobin Sodium Potassium Chloride Carbon Dioxide BUN Creatinine Glucose POC Glucose 199 H 362 H 235 H Hemoglobin A1c Ferritin AST ALT Alkaline Phosphatase Lactate Dehydrogenase C-Reactive Protein Total Protein Albumin Arterial Blood Glucose Coronavirus (PCR) 06/18/21 06/18/21 06/18/21 08:00 11:48 16:40 WBC MCH MCHC RDW Lymph % (Auto) [place] % (Auto) Eos % (Auto) Lymph # (Auto) [place] # (Auto) Eos # (Auto) Baso # (Auto) Seg Neutrophils % Seg Neuts % (Manual) Lymphocytes % (Manual) Seg Neutrophils # Seg Neutrophils # Man Lymphocytes # (Manual) D-Dimer ABG pH POC ABG pCO2 POC ABG pO2 ABG pO2 ABG HCO3 ABG O2 Saturation ABG Base Excess ABG Oxyhemoglobin ABG Sodium ABG Chloride ABG Glucose Oxyhemoglobin Carboxyhemoglobin Sodium Potassium Chloride Carbon Dioxide BUN Creatinine Glucose POC Glucose 62 L 211 H 305 H Hemoglobin A1c Ferritin AST ALT Alkaline Phosphatase Lactate Dehydrogenase C-Reactive Protein Total Protein Albumin Arterial Blood Glucose Coronavirus (PCR) 06/18/21 06/19/21 06/19/21 21:26 07:27 11:32 WBC MCH MCHC RDW Lymph % (Auto) [place] % (Auto) Eos % (Auto) Lymph # (Auto) [place] # (Auto) Eos # (Auto) Baso # (Auto) Seg Neutrophils % Seg Neuts % (Manual) Lymphocytes % (Manual) Seg Neutrophils # Seg Neutrophils # Man Lymphocytes # (Manual) D-Dimer ABG pH POC ABG pCO2 POC ABG pO2 ABG pO2 ABG HCO3 ABG O2 Saturation ABG Base Excess ABG Oxyhemoglobin ABG Sodium ABG Chloride ABG Glucose Oxyhemoglobin Carboxyhemoglobin Sodium Potassium Chloride Carbon Dioxide BUN Creatinine Glucose POC Glucose 149 H 60 L 208 H Hemoglobin A1c Ferritin AST ALT Alkaline Phosphatase Lactate Dehydrogenase C-Reactive Protein Total Protein Albumin Arterial Blood Glucose Coronavirus (PCR) 06/19/21 06/19/21 06/20/21 16:06 22:28 07:48 WBC MCH MCHC RDW Lymph % (Auto) [place] % (Auto) Eos % (Auto) Lymph # (Auto) [place] # (Auto) Eos # (Auto) Baso # (Auto) Seg Neutrophils % Seg Neuts % (Manual) Lymphocytes % (Manual) Seg Neutrophils # Seg Neutrophils # Man Lymphocytes # (Manual) D-Dimer ABG pH POC ABG pCO2 POC ABG pO2 ABG pO2 ABG HCO3 ABG O2 Saturation ABG Base Excess ABG Oxyhemoglobin ABG Sodium ABG Chloride ABG Glucose Oxyhemoglobin Carboxyhemoglobin Sodium Potassium Chloride Carbon Dioxide BUN Creatinine Glucose POC Glucose 266 H 166 H 58 L Hemoglobin A1c Ferritin AST ALT Alkaline Phosphatase Lactate Dehydrogenase C-Reactive Protein Total Protein Albumin Arterial Blood Glucose Coronavirus (PCR) 06/20/21 06/20/21 06/20/21 09:09 11:04 16:01 WBC MCH MCHC RDW Lymph % (Auto) [place] % (Auto) Eos % (Auto) Lymph # (Auto) [place] # (Auto) Eos # (Auto) Baso # (Auto) Seg Neutrophils % Seg Neuts % (Manual) Lymphocytes % (Manual) Seg Neutrophils # Seg Neutrophils # Man Lymphocytes # (Manual) D-Dimer ABG pH POC ABG pCO2 POC ABG pO2 ABG pO2 ABG HCO3 ABG O2 Saturation ABG Base Excess ABG Oxyhemoglobin ABG Sodium ABG Chloride ABG Glucose Oxyhemoglobin Carboxyhemoglobin Sodium Potassium Chloride Carbon Dioxide BUN Creatinine Glucose POC Glucose 146 H 225 H 330 H Hemoglobin A1c Ferritin AST ALT Alkaline Phosphatase Lactate Dehydrogenase C-Reactive Protein Total Protein Albumin Arterial Blood Glucose Coronavirus (PCR) 06/20/21 06/21/21 06/21/21 20:46 06:45 06:45 WBC MCH MCHC RDW 20.0 H Lymph % (Auto) [place] % (Auto) Eos % (Auto) Lymph # (Auto) [place] # (Auto) Eos # (Auto) Baso # (Auto) Seg Neutrophils % Seg Neuts % (Manual) Lymphocytes % (Manual) Seg Neutrophils # Seg Neutrophils # Man Lymphocytes # (Manual) D-Dimer ABG pH POC ABG pCO2 POC ABG pO2 ABG pO2 ABG HCO3 ABG O2 Saturation ABG Base Excess ABG Oxyhemoglobin ABG Sodium ABG Chloride ABG Glucose Oxyhemoglobin Carboxyhemoglobin Sodium Potassium 2.9 L* Chloride 95.0 L Carbon Dioxide 31 H BUN 23 H Creatinine 0.2 L Glucose 45 L POC Glucose 215 H Hemoglobin A1c Ferritin AST ALT Alkaline Phosphatase Lactate Dehydrogenase C-Reactive Protein Total Protein Albumin Arterial Blood Glucose Coronavirus (PCR) 06/21/21 06/21/21 06/21/21 07:38 09:06 12:40 WBC MCH MCHC RDW Lymph % (Auto) [place] % (Auto) Eos % (Auto) Lymph # (Auto) [place] # (Auto) Eos # (Auto) Baso # (Auto) Seg Neutrophils % Seg Neuts % (Manual) Lymphocytes % (Manual) Seg Neutrophils # Seg Neutrophils # Man Lymphocytes # (Manual) D-Dimer ABG pH POC ABG pCO2 POC ABG pO2 ABG pO2 ABG HCO3 ABG O2 Saturation ABG Base Excess ABG Oxyhemoglobin ABG Sodium ABG Chloride ABG Glucose Oxyhemoglobin Carboxyhemoglobin Sodium Potassium Chloride Carbon Dioxide BUN Creatinine Glucose POC Glucose 50 L 196 H 205 H Hemoglobin A1c Ferritin AST ALT Alkaline Phosphatase Lactate Dehydrogenase C-Reactive Protein Total Protein Albumin Arterial Blood Glucose Coronavirus (PCR) 06/21/21 06/22/21 06/22/21 21:36 06:25 07:15 WBC MCH MCHC RDW Lymph % (Auto) [place] % (Auto) Eos % (Auto) Lymph # (Auto) [place] # (Auto) Eos # (Auto) Baso # (Auto) Seg Neutrophils % Seg Neuts % (Manual) Lymphocytes % (Manual) Seg Neutrophils # Seg Neutrophils # Man Lymphocytes # (Manual) D-Dimer ABG pH POC ABG pCO2 POC ABG pO2 ABG pO2 ABG HCO3 ABG O2 Saturation ABG Base Excess ABG Oxyhemoglobin ABG Sodium ABG Chloride ABG Glucose Oxyhemoglobin Carboxyhemoglobin Sodium Potassium Chloride Carbon Dioxide BUN 20 H Creatinine 0.2 L Glucose POC Glucose 245 H 66 L Hemoglobin A1c Ferritin AST ALT Alkaline Phosphatase Lactate Dehydrogenase C-Reactive Protein Total Protein Albumin Arterial Blood Glucose Coronavirus (PCR) 06/22/21 06/22/21 06/22/21 11:03 16:07 22:03 WBC MCH MCHC RDW Lymph % (Auto) [place] % (Auto) Eos % (Auto) Lymph # (Auto) [place] # (Auto) Eos # (Auto) Baso # (Auto) Seg Neutrophils % Seg Neuts % (Manual) Lymphocytes % (Manual) Seg Neutrophils # Seg Neutrophils # Man Lymphocytes # (Manual) D-Dimer ABG pH POC ABG pCO2 POC ABG pO2 ABG pO2 ABG HCO3 ABG O2 Saturation ABG Base Excess ABG Oxyhemoglobin ABG Sodium ABG Chloride ABG Glucose Oxyhemoglobin Carboxyhemoglobin Sodium Potassium Chloride Carbon Dioxide BUN Creatinine Glucose POC Glucose 184 H 326 H 138 H Hemoglobin A1c Ferritin AST ALT Alkaline Phosphatase Lactate Dehydrogenase C-Reactive Protein Total Protein Albumin Arterial Blood Glucose Coronavirus (PCR) 06/23/21 06/23/21 06/23/21 07:19 10:34 16:35 WBC MCH MCHC RDW Lymph % (Auto) [place] % (Auto) Eos % (Auto) Lymph # (Auto) [place] # (Auto) Eos # (Auto) Baso # (Auto) Seg Neutrophils % Seg Neuts % (Manual) Lymphocytes % (Manual) Seg Neutrophils # Seg Neutrophils # Man Lymphocytes # (Manual) D-Dimer ABG pH POC ABG pCO2 POC ABG pO2 ABG pO2 ABG HCO3 ABG O2 Saturation ABG Base Excess ABG Oxyhemoglobin ABG Sodium ABG Chloride ABG Glucose Oxyhemoglobin Carboxyhemoglobin Sodium Potassium Chloride Carbon Dioxide BUN Creatinine Glucose POC Glucose 69 L 218 H 326 H Hemoglobin A1c Ferritin AST ALT Alkaline Phosphatase Lactate Dehydrogenase C-Reactive Protein Total Protein Albumin Arterial Blood Glucose Coronavirus (PCR) 06/23/21 06/24/21 06/24/21 22:44 11:41 16:54 WBC MCH MCHC RDW Lymph % (Auto) [place] % (Auto) Eos % (Auto) Lymph # (Auto) [place] # (Auto) Eos # (Auto) Baso # (Auto) Seg Neutrophils % Seg Neuts % (Manual) Lymphocytes % (Manual) Seg Neutrophils # Seg Neutrophils # Man Lymphocytes # (Manual) D-Dimer ABG pH POC ABG pCO2 POC ABG pO2 ABG pO2 ABG HCO3 ABG O2 Saturation ABG Base Excess ABG Oxyhemoglobin ABG Sodium ABG Chloride ABG Glucose Oxyhemoglobin Carboxyhemoglobin Sodium Potassium Chloride Carbon Dioxide BUN Creatinine Glucose POC Glucose 252 H 217 H 357 H Hemoglobin A1c Ferritin AST ALT Alkaline Phosphatase Lactate Dehydrogenase C-Reactive Protein Total Protein Albumin Arterial Blood Glucose Coronavirus (PCR) 06/24/21 06/25/21 06/25/21 20:40 11:51 16:47 WBC MCH MCHC RDW Lymph % (Auto) [place] % (Auto) Eos % (Auto) Lymph # (Auto) [place] # (Auto) Eos # (Auto) Baso # (Auto) Seg Neutrophils % Seg Neuts % (Manual) Lymphocytes % (Manual) Seg Neutrophils # Seg Neutrophils # Man Lymphocytes # (Manual) D-Dimer ABG pH POC ABG pCO2 POC ABG pO2 ABG pO2 ABG HCO3 ABG O2 Saturation ABG Base Excess ABG Oxyhemoglobin ABG Sodium ABG Chloride ABG Glucose Oxyhemoglobin Carboxyhemoglobin Sodium Potassium Chloride Carbon Dioxide BUN Creatinine Glucose POC Glucose 239 H 182 H 229 H Hemoglobin A1c Ferritin AST ALT Alkaline Phosphatase Lactate Dehydrogenase C-Reactive Protein Total Protein Albumin Arterial Blood Glucose Coronavirus (PCR) 06/25/21 06/26/21 06/26/21 22:27 07:20 12:19 WBC MCH MCHC RDW Lymph % (Auto) [place] % (Auto) Eos % (Auto) Lymph # (Auto) [place] # (Auto) Eos # (Auto) Baso # (Auto) Seg Neutrophils % Seg Neuts % (Manual) Lymphocytes % (Manual) Seg Neutrophils # Seg Neutrophils # Man Lymphocytes # (Manual) D-Dimer ABG pH POC ABG pCO2 POC ABG pO2 ABG pO2 ABG HCO3 ABG O2 Saturation ABG Base Excess ABG Oxyhemoglobin ABG Sodium ABG Chloride ABG Glucose Oxyhemoglobin Carboxyhemoglobin Sodium Potassium 3.2 L D Chloride Carbon Dioxide BUN 20 H Creatinine 0.3 L Glucose POC Glucose 209 H 273 H Hemoglobin A1c Ferritin AST ALT 77 H Alkaline Phosphatase Lactate Dehydrogenase C-Reactive Protein Total Protein Albumin 3.3 L Arterial Blood Glucose Coronavirus (PCR) 06/26/21 06/26/21 06/27/21 16:52 20:55 07:14 WBC MCH MCHC RDW Lymph % (Auto) [place] % (Auto) Eos % (Auto) Lymph # (Auto) [place] # (Auto) Eos # (Auto) Baso # (Auto) Seg Neutrophils % Seg Neuts % (Manual) Lymphocytes % (Manual) Seg Neutrophils # Seg Neutrophils # Man Lymphocytes # (Manual) D-Dimer ABG pH POC ABG pCO2 POC ABG pO2 ABG pO2 ABG HCO3 ABG O2 Saturation ABG Base Excess ABG Oxyhemoglobin ABG Sodium ABG Chloride ABG Glucose Oxyhemoglobin Carboxyhemoglobin Sodium Potassium Chloride Carbon Dioxide 31 H BUN 19 H Creatinine 0.2 L Glucose 112 H POC Glucose 326 H 220 H Hemoglobin A1c Ferritin AST ALT Alkaline Phosphatase Lactate Dehydrogenase C-Reactive Protein Total Protein Albumin Arterial Blood Glucose Coronavirus (PCR) 06/27/21 06/27/21 06/27/21 07:29 10:54 15:49 WBC MCH MCHC RDW Lymph % (Auto) Merrick % (Auto) Eos % (Auto) Lymph # (Auto) Merrick # (Auto) Eos # (Auto) Baso # (Auto) Seg Neutrophils % Seg Neuts % (Manual) Lymphocytes % (Manual) Seg Neutrophils # Seg Neutrophils # Man Lymphocytes # (Manual) D-Dimer ABG pH POC ABG pCO2 POC ABG pO2 ABG pO2 ABG HCO3 ABG O2 Saturation ABG Base Excess ABG Oxyhemoglobin ABG Sodium ABG Chloride ABG Glucose Oxyhemoglobin Carboxyhemoglobin Sodium Potassium Chloride Carbon Dioxide BUN Creatinine Glucose POC Glucose 115 H 228 H 240 H Hemoglobin A1c Ferritin AST ALT Alkaline Phosphatase Lactate Dehydrogenase C-Reactive Protein Total Protein Albumin Arterial Blood Glucose Coronavirus (PCR) 06/28/21 06/28/21 06/28/21 05:43 05:43 07:13 WBC MCH 33 H MCHC RDW 19.8 H Lymph % (Auto) Merrick % (Auto) Eos % (Auto) Lymph # (Auto) Merrick # (Auto) Eos # (Auto) Baso # (Auto) Seg Neutrophils % Seg Neuts % (Manual) Lymphocytes % (Manual) Seg Neutrophils # Seg Neutrophils # Man Lymphocytes # (Manual) D-Dimer ABG pH POC ABG pCO2 POC ABG pO2 ABG pO2 ABG HCO3 ABG O2 Saturation ABG Base Excess ABG Oxyhemoglobin ABG Sodium ABG Chloride ABG Glucose Oxyhemoglobin Carboxyhemoglobin Sodium Potassium 3.3 L Chloride Carbon Dioxide BUN 22 H Creatinine 0.2 L Glucose POC Glucose 69 L Hemoglobin A1c Ferritin AST ALT 63 H Alkaline Phosphatase Lactate Dehydrogenase C-Reactive Protein Total Protein Albumin 3.3 L Arterial Blood Glucose Coronavirus (PCR) 06/28/21 06/28/21 06/28/21 12:18 15:37 21:01 WBC MCH MCHC RDW Lymph % (Auto) [place] % (Auto) Eos % (Auto) Lymph # (Auto) [place] # (Auto) Eos # (Auto) Baso # (Auto) Seg Neutrophils % Seg Neuts % (Manual) Lymphocytes % (Manual) Seg Neutrophils # Seg Neutrophils # Man Lymphocytes # (Manual) D-Dimer ABG pH POC ABG pCO2 POC ABG pO2 ABG pO2 ABG HCO3 ABG O2 Saturation ABG Base Excess ABG Oxyhemoglobin ABG Sodium ABG Chloride ABG Glucose Oxyhemoglobin Carboxyhemoglobin Sodium Potassium Chloride Carbon Dioxide BUN Creatinine Glucose POC Glucose 154 H 201 H 191 H Hemoglobin A1c Ferritin AST ALT Alkaline Phosphatase Lactate Dehydrogenase C-Reactive Protein Total Protein Albumin Arterial Blood Glucose Coronavirus (PCR) 06/29/21 06/29/21 06/29/21 11:55 15:47 21:06 WBC MCH MCHC RDW Lymph % (Auto) [place] % (Auto) Eos % (Auto) Lymph # (Auto) [place] # (Auto) Eos # (Auto) Baso # (Auto) Seg Neutrophils % Seg Neuts % (Manual) Lymphocytes % (Manual) Seg Neutrophils # Seg Neutrophils # Man Lymphocytes # (Manual) D-Dimer ABG pH POC ABG pCO2 POC ABG pO2 ABG pO2 ABG HCO3 ABG O2 Saturation ABG Base Excess ABG Oxyhemoglobin ABG Sodium ABG Chloride ABG Glucose Oxyhemoglobin Carboxyhemoglobin Sodium Potassium Chloride Carbon Dioxide BUN Creatinine Glucose POC Glucose 238 H 249 H 155 H Hemoglobin A1c Ferritin AST ALT Alkaline Phosphatase Lactate Dehydrogenase C-Reactive Protein Total Protein Albumin Arterial Blood Glucose Coronavirus (PCR) 06/30/21 06/30/21 06/30/21 04:00 07:50 11:50 WBC MCH MCHC RDW Lymph % (Auto) [place] % (Auto) Eos % (Auto) Lymph # (Auto) [place] # (Auto) Eos # (Auto) Baso # (Auto) Seg Neutrophils % Seg Neuts % (Manual) Lymphocytes % (Manual) Seg Neutrophils # Seg Neutrophils # Man Lymphocytes # (Manual) D-Dimer ABG pH POC ABG pCO2 POC ABG pO2 ABG pO2 ABG HCO3 ABG O2 Saturation ABG Base Excess ABG Oxyhemoglobin ABG Sodium ABG Chloride ABG Glucose Oxyhemoglobin Carboxyhemoglobin Sodium Potassium 3.5 L Chloride Carbon Dioxide BUN 18 H Creatinine 0.3 L Glucose 111 H POC Glucose 117 H 250 H Hemoglobin A1c Ferritin AST ALT Alkaline Phosphatase Lactate Dehydrogenase C-Reactive Protein Total Protein Albumin Arterial Blood Glucose Coronavirus (PCR) 06/30/21 06/30/21 07/01/21 16:05 21:02 07:26 WBC MCH MCHC RDW Lymph % (Auto) [place] % (Auto) Eos % (Auto) Lymph # (Auto) [place] # (Auto) Eos # (Auto) Baso # (Auto) Seg Neutrophils % Seg Neuts % (Manual) Lymphocytes % (Manual) Seg Neutrophils # Seg Neutrophils # Man Lymphocytes # (Manual) D-Dimer ABG pH POC ABG pCO2 POC ABG pO2 ABG pO2 ABG HCO3 ABG O2 Saturation ABG Base Excess ABG Oxyhemoglobin ABG Sodium ABG Chloride ABG Glucose Oxyhemoglobin Carboxyhemoglobin Sodium Potassium Chloride Carbon Dioxide BUN Creatinine Glucose POC Glucose 250 H 217 H 111 H Hemoglobin A1c Ferritin AST ALT Alkaline Phosphatase Lactate Dehydrogenase C-Reactive Protein Total Protein Albumin Arterial Blood Glucose Coronavirus (PCR) 07/01/21 07/01/21 07/01/21 11:06 15:48 21:31 WBC MCH MCHC RDW Lymph % (Auto) [place] % (Auto) Eos % (Auto) Lymph # (Auto) [place] # (Auto) Eos # (Auto) Baso # (Auto) Seg Neutrophils % Seg Neuts % (Manual) Lymphocytes % (Manual) Seg Neutrophils # Seg Neutrophils # Man Lymphocytes # (Manual) D-Dimer ABG pH POC ABG pCO2 POC ABG pO2 ABG pO2 ABG HCO3 ABG O2 Saturation ABG Base Excess ABG Oxyhemoglobin ABG Sodium ABG Chloride ABG Glucose Oxyhemoglobin Carboxyhemoglobin Sodium Potassium Chloride Carbon Dioxide BUN Creatinine Glucose POC Glucose 229 H 239 H 199 H Hemoglobin A1c Ferritin AST ALT Alkaline Phosphatase Lactate Dehydrogenase C-Reactive Protein Total Protein Albumin Arterial Blood Glucose Coronavirus (PCR) 07/02/21 07/02/21 07/02/21 11:50 16:44 21:49 WBC MCH MCHC RDW Lymph % (Auto) [place] % (Auto) Eos % (Auto) Lymph # (Auto) [place] # (Auto) Eos # (Auto) Baso # (Auto) Seg Neutrophils % Seg Neuts % (Manual) Lymphocytes % (Manual) Seg Neutrophils # Seg Neutrophils # Man Lymphocytes # (Manual) D-Dimer ABG pH POC ABG pCO2 POC ABG pO2 ABG pO2 ABG HCO3 ABG O2 Saturation ABG Base Excess ABG Oxyhemoglobin ABG Sodium ABG Chloride ABG Glucose Oxyhemoglobin Carboxyhemoglobin Sodium Potassium Chloride Carbon Dioxide BUN Creatinine Glucose POC Glucose 230 H 203 H 197 H Hemoglobin A1c Ferritin AST ALT Alkaline Phosphatase Lactate Dehydrogenase C-Reactive Protein Total Protein Albumin Arterial Blood Glucose Coronavirus (PCR) 07/03/21 07/03/21 07/03/21 05:46 05:46 11:59 WBC MCH MCHC RDW 19.6 H Lymph % (Auto) [place] % (Auto) Eos % (Auto) Lymph # (Auto) [place] # (Auto) Eos # (Auto) Baso # (Auto) Seg Neutrophils % Seg Neuts % (Manual) Lymphocytes % (Manual) Seg Neutrophils # Seg Neutrophils # Man Lymphocytes # (Manual) D-Dimer ABG pH POC ABG pCO2 POC ABG pO2 ABG pO2 ABG HCO3 ABG O2 Saturation ABG Base Excess ABG Oxyhemoglobin ABG Sodium ABG Chloride ABG Glucose Oxyhemoglobin Carboxyhemoglobin Sodium Potassium 3.2 L Chloride Carbon Dioxide BUN Creatinine 0.3 L Glucose POC Glucose 145 H Hemoglobin A1c Ferritin AST ALT Alkaline Phosphatase Lactate Dehydrogenase C-Reactive Protein Total Protein Albumin Arterial Blood Glucose Coronavirus (PCR) 07/03/21 07/03/21 07/04/21 16:40 22:00 06:35 WBC MCH MCHC RDW Lymph % (Auto) [place] % (Auto) Eos % (Auto) Lymph # (Auto) [place] # (Auto) Eos # (Auto) Baso # (Auto) Seg Neutrophils % Seg Neuts % (Manual) Lymphocytes % (Manual) Seg Neutrophils # Seg Neutrophils # Man Lymphocytes # (Manual) D-Dimer ABG pH POC ABG pCO2 POC ABG pO2 ABG pO2 ABG HCO3 ABG O2 Saturation ABG Base Excess ABG Oxyhemoglobin ABG Sodium ABG Chloride ABG Glucose Oxyhemoglobin Carboxyhemoglobin Sodium Potassium Chloride Carbon Dioxide BUN Creatinine 0.3 L Glucose 118 H POC Glucose 176 H 127 H Hemoglobin A1c Ferritin AST ALT Alkaline Phosphatase Lactate Dehydrogenase C-Reactive Protein Total Protein Albumin Arterial Blood Glucose Coronavirus (PCR) 07/04/21 07/04/21 07/05/21 12:30 16:38 08:37 WBC MCH MCHC RDW Lymph % (Auto) [place] % (Auto) Eos % (Auto) Lymph # (Auto) [place] # (Auto) Eos # (Auto) Baso # (Auto) Seg Neutrophils % Seg Neuts % (Manual) Lymphocytes % (Manual) Seg Neutrophils # Seg Neutrophils # Man Lymphocytes # (Manual) D-Dimer ABG pH POC ABG pCO2 POC ABG pO2 ABG pO2 ABG HCO3 ABG O2 Saturation ABG Base Excess ABG Oxyhemoglobin ABG Sodium ABG Chloride ABG Glucose Oxyhemoglobin Carboxyhemoglobin Sodium Potassium Chloride Carbon Dioxide BUN Creatinine Glucose POC Glucose 162 H 205 H 115 H Hemoglobin A1c Ferritin AST ALT Alkaline Phosphatase Lactate Dehydrogenase C-Reactive Protein Total Protein Albumin Arterial Blood Glucose Coronavirus (PCR) 07/05/21 07/05/21 07/05/21 10:57 16:42 21:14 WBC MCH MCHC RDW Lymph % (Auto) [place] % (Auto) Eos % (Auto) Lymph # (Auto) [place] # (Auto) Eos # (Auto) Baso # (Auto) Seg Neutrophils % Seg Neuts % (Manual) Lymphocytes % (Manual) Seg Neutrophils # Seg Neutrophils # Man Lymphocytes # (Manual) D-Dimer ABG pH POC ABG pCO2 POC ABG pO2 ABG pO2 ABG HCO3 ABG O2 Saturation ABG Base Excess ABG Oxyhemoglobin ABG Sodium ABG Chloride ABG Glucose Oxyhemoglobin Carboxyhemoglobin Sodium Potassium Chloride Carbon Dioxide BUN Creatinine Glucose POC Glucose 151 H 184 H 130 H Hemoglobin A1c Ferritin AST ALT Alkaline Phosphatase Lactate Dehydrogenase C-Reactive Protein Total Protein Albumin Arterial Blood Glucose Coronavirus (PCR) 07/06/21 07/06/21 07/06/21 07:31 11:49 16:46 WBC MCH MCHC RDW Lymph % (Auto) [place] % (Auto) Eos % (Auto) Lymph # (Auto) [place] # (Auto) Eos # (Auto) Baso # (Auto) Seg Neutrophils % Seg Neuts % (Manual) Lymphocytes % (Manual) Seg Neutrophils # Seg Neutrophils # Man Lymphocytes # (Manual) D-Dimer ABG pH POC ABG pCO2 POC ABG pO2 ABG pO2 ABG HCO3 ABG O2 Saturation ABG Base Excess ABG Oxyhemoglobin ABG Sodium ABG Chloride ABG Glucose Oxyhemoglobin Carboxyhemoglobin Sodium Potassium Chloride Carbon Dioxide BUN Creatinine Glucose POC Glucose 106 H 173 H 205 H Hemoglobin A1c Ferritin AST ALT Alkaline Phosphatase Lactate Dehydrogenase C-Reactive Protein Total Protein Albumin Arterial Blood Glucose Coronavirus (PCR) 07/06/21 07/07/21 07/07/21 21:38 06:00 06:00 WBC 16.1 H MCH MCHC RDW 18.8 H Lymph % (Auto) [place] % (Auto) Eos % (Auto) Lymph # (Auto) [place] # (Auto) 1.1 H Eos # (Auto) Baso # (Auto) 0.2 H Seg Neutrophils % 74.9 H Seg Neuts % (Manual) Lymphocytes % (Manual) Seg Neutrophils # 12.1 H Seg Neutrophils # Man Lymphocytes # (Manual) D-Dimer ABG pH POC ABG pCO2 POC ABG pO2 ABG pO2 ABG HCO3 ABG O2 Saturation ABG Base Excess ABG Oxyhemoglobin ABG Sodium ABG Chloride ABG Glucose Oxyhemoglobin Carboxyhemoglobin Sodium Potassium 3.5 L D Chloride Carbon Dioxide BUN 6 L Creatinine < 0.2 L Glucose 106 H POC Glucose 120 H Hemoglobin A1c Ferritin AST ALT Alkaline Phosphatase Lactate Dehydrogenase C-Reactive Protein Total Protein Albumin Arterial Blood Glucose Coronavirus (PCR) 07/07/21 07/07/21 07/07/21 07:10 11:53 15:53 WBC MCH MCHC RDW Lymph % (Auto) [place] % (Auto) Eos % (Auto) Lymph # (Auto) [place] # (Auto) Eos # (Auto) Baso # (Auto) Seg Neutrophils % Seg Neuts % (Manual) Lymphocytes % (Manual) Seg Neutrophils # Seg Neutrophils # Man Lymphocytes # (Manual) D-Dimer ABG pH POC ABG pCO2 POC ABG pO2 ABG pO2 ABG HCO3 ABG O2 Saturation ABG Base Excess ABG Oxyhemoglobin ABG Sodium ABG Chloride ABG Glucose Oxyhemoglobin Carboxyhemoglobin Sodium Potassium Chloride Carbon Dioxide BUN Creatinine Glucose POC Glucose 132 H 169 H 242 H Hemoglobin A1c Ferritin AST ALT Alkaline Phosphatase Lactate Dehydrogenase C-Reactive Protein Total Protein Albumin Arterial Blood Glucose Coronavirus (PCR) 07/07/21 07/08/21 07/08/21 21:41 08:09 12:20 WBC MCH MCHC RDW Lymph % (Auto) [place] % (Auto) Eos % (Auto) Lymph # (Auto) [place] # (Auto) Eos # (Auto) Baso # (Auto) Seg Neutrophils % Seg Neuts % (Manual) Lymphocytes % (Manual) Seg Neutrophils # Seg Neutrophils # Man Lymphocytes # (Manual) D-Dimer ABG pH POC ABG pCO2 POC ABG pO2 ABG pO2 ABG HCO3 ABG O2 Saturation ABG Base Excess ABG Oxyhemoglobin ABG Sodium ABG Chloride ABG Glucose Oxyhemoglobin Carboxyhemoglobin Sodium Potassium Chloride Carbon Dioxide BUN Creatinine Glucose POC Glucose 128 H 132 H 179 H Hemoglobin A1c Ferritin AST ALT Alkaline Phosphatase Lactate Dehydrogenase C-Reactive Protein Total Protein Albumin Arterial Blood Glucose Coronavirus (PCR) 07/08/21 07/08/21 07/08/21 16:37 21:45 22:44 WBC MCH MCHC RDW Lymph % (Auto) [place] % (Auto) Eos % (Auto) Lymph # (Auto) [place] # (Auto) Eos # (Auto) Baso # (Auto) Seg Neutrophils % Seg Neuts % (Manual) Lymphocytes % (Manual) Seg Neutrophils # Seg Neutrophils # Man Lymphocytes # (Manual) D-Dimer ABG pH POC ABG pCO2 POC ABG pO2 ABG pO2 ABG HCO3 ABG O2 Saturation ABG Base Excess ABG Oxyhemoglobin ABG Sodium ABG Chloride ABG Glucose Oxyhemoglobin Carboxyhemoglobin Sodium Potassium Chloride Carbon Dioxide BUN Creatinine Glucose POC Glucose 192 H 51 L 137 H Hemoglobin A1c Ferritin AST ALT Alkaline Phosphatase Lactate Dehydrogenase C-Reactive Protein Total Protein Albumin Arterial Blood Glucose Coronavirus (PCR) 07/09/21 07/09/21 07/09/21 04:45 04:45 04:45 WBC MCH MCHC RDW 18.3 H Lymph % (Auto) [place] % (Auto) Eos % (Auto) Lymph # (Auto) [place] # (Auto) Eos # (Auto) Baso # (Auto) Seg Neutrophils % Seg Neuts % (Manual) 82.0 H Lymphocytes % (Manual) 13.0 L Seg Neutrophils # Seg Neutrophils # Man 7.8 H Lymphocytes # (Manual) D-Dimer 638.35 H ABG pH POC ABG pCO2 POC ABG pO2 ABG pO2 ABG HCO3 ABG O2 Saturation ABG Base Excess ABG Oxyhemoglobin ABG Sodium ABG Chloride ABG Glucose Oxyhemoglobin Carboxyhemoglobin Sodium Potassium Chloride 96.9 L Carbon Dioxide 35 H BUN Creatinine 0.2 L Glucose 135 H POC Glucose Hemoglobin A1c Ferritin AST ALT Alkaline Phosphatase Lactate Dehydrogenase C-Reactive Protein 4.30 H Total Protein Albumin Arterial Blood Glucose Coronavirus (PCR) 07/09/21 07/09/21 07/09/21 05:19 07:36 11:16 WBC MCH MCHC RDW Lymph % (Auto) [place] % (Auto) Eos % (Auto) Lymph # (Auto) [place] # (Auto) Eos # (Auto) Baso # (Auto) Seg Neutrophils % Seg Neuts % (Manual) Lymphocytes % (Manual) Seg Neutrophils # Seg Neutrophils # Man Lymphocytes # (Manual) D-Dimer ABG pH POC ABG pCO2 POC ABG pO2 ABG pO2 ABG HCO3 ABG O2 Saturation ABG Base Excess ABG Oxyhemoglobin ABG Sodium ABG Chloride ABG Glucose Oxyhemoglobin Carboxyhemoglobin Sodium Potassium Chloride Carbon Dioxide BUN Creatinine Glucose POC Glucose 135 H 148 H 212 H Hemoglobin A1c Ferritin AST ALT Alkaline Phosphatase Lactate Dehydrogenase C-Reactive Protein Total Protein Albumin Arterial Blood Glucose Coronavirus (PCR) 07/09/21 07/09/21 07/10/21 15:21 21:12 05:40 WBC MCH MCHC RDW Lymph % (Auto) [place] % (Auto) Eos % (Auto) Lymph # (Auto) [place] # (Auto) Eos # (Auto) Baso # (Auto) Seg Neutrophils % Seg Neuts % (Manual) Lymphocytes % (Manual) Seg Neutrophils # Seg Neutrophils # Man Lymphocytes # (Manual) D-Dimer ABG pH POC ABG pCO2 POC ABG pO2 ABG pO2 ABG HCO3 ABG O2 Saturation ABG Base Excess ABG Oxyhemoglobin ABG Sodium ABG Chloride ABG Glucose Oxyhemoglobin Carboxyhemoglobin Sodium Potassium 3.3 L Chloride 95.1 L Carbon Dioxide 39 H BUN Creatinine 0.2 L Glucose 122 H POC Glucose 128 H 196 H Hemoglobin A1c Ferritin AST ALT Alkaline Phosphatase Lactate Dehydrogenase C-Reactive Protein Total Protein Albumin Arterial Blood Glucose Coronavirus (PCR) 07/10/21 07/10/21 07/10/21 07:38 11:15 16:29 WBC MCH MCHC RDW Lymph % (Auto) [place] % (Auto) Eos % (Auto) Lymph # (Auto) [place] # (Auto) Eos # (Auto) Baso # (Auto) Seg Neutrophils % Seg Neuts % (Manual) Lymphocytes % (Manual) Seg Neutrophils # Seg Neutrophils # Man Lymphocytes # (Manual) D-Dimer ABG pH POC ABG pCO2 POC ABG pO2 ABG pO2 ABG HCO3 ABG O2 Saturation ABG Base Excess ABG Oxyhemoglobin ABG Sodium ABG Chloride ABG Glucose Oxyhemoglobin Carboxyhemoglobin Sodium Potassium Chloride Carbon Dioxide BUN Creatinine Glucose POC Glucose 128 H 175 H 174 H Hemoglobin A1c Ferritin AST ALT Alkaline Phosphatase Lactate Dehydrogenase C-Reactive Protein Total Protein Albumin Arterial Blood Glucose Coronavirus (PCR) 07/10/21 07/11/21 07/11/21 20:49 05:50 12:08 WBC MCH MCHC RDW Lymph % (Auto) [place] % (Auto) Eos % (Auto) Lymph # (Auto) [place] # (Auto) Eos # (Auto) Baso # (Auto) Seg Neutrophils % Seg Neuts % (Manual) Lymphocytes % (Manual) Seg Neutrophils # Seg Neutrophils # Man Lymphocytes # (Manual) D-Dimer ABG pH POC ABG pCO2 POC ABG pO2 ABG pO2 ABG HCO3 ABG O2 Saturation ABG Base Excess ABG Oxyhemoglobin ABG Sodium ABG Chloride ABG Glucose Oxyhemoglobin Carboxyhemoglobin Sodium Potassium Chloride 97.3 L Carbon Dioxide 34 H BUN Creatinine 0.2 L Glucose 109 H POC Glucose 142 H 220 H Hemoglobin A1c Ferritin AST ALT Alkaline Phosphatase Lactate Dehydrogenase C-Reactive Protein Total Protein Albumin Arterial Blood Glucose Coronavirus (PCR) 07/11/21 07/11/21 07/12/21 17:09 21:55 07:36 WBC MCH MCHC RDW Lymph % (Auto) [place] % (Auto) Eos % (Auto) Lymph # (Auto) [place] # (Auto) Eos # (Auto) Baso # (Auto) Seg Neutrophils % Seg Neuts % (Manual) Lymphocytes % (Manual) Seg Neutrophils # Seg Neutrophils # Man Lymphocytes # (Manual) D-Dimer ABG pH POC ABG pCO2 POC ABG pO2 ABG pO2 ABG HCO3 ABG O2 Saturation ABG Base Excess ABG Oxyhemoglobin ABG Sodium ABG Chloride ABG Glucose Oxyhemoglobin Carboxyhemoglobin Sodium Potassium Chloride Carbon Dioxide BUN Creatinine Glucose POC Glucose 219 H 124 H 114 H Hemoglobin A1c Ferritin AST ALT Alkaline Phosphatase Lactate Dehydrogenase C-Reactive Protein Total Protein Albumin Arterial Blood Glucose Coronavirus (PCR) 07/12/21 07/12/21 07/12/21 11:08 15:43 22:20 WBC MCH MCHC RDW Lymph % (Auto) [place] % (Auto) Eos % (Auto) Lymph # (Auto) [place] # (Auto) Eos # (Auto) Baso # (Auto) Seg Neutrophils % Seg Neuts % (Manual) Lymphocytes % (Manual) Seg Neutrophils # Seg Neutrophils # Man Lymphocytes # (Manual) D-Dimer ABG pH POC ABG pCO2 POC ABG pO2 ABG pO2 ABG HCO3 ABG O2 Saturation ABG Base Excess ABG Oxyhemoglobin ABG Sodium ABG Chloride ABG Glucose Oxyhemoglobin Carboxyhemoglobin Sodium Potassium Chloride Carbon Dioxide BUN Creatinine Glucose POC Glucose 195 H 276 H 189 H Hemoglobin A1c Ferritin AST ALT Alkaline Phosphatase Lactate Dehydrogenase C-Reactive Protein Total Protein Albumin Arterial Blood Glucose Coronavirus (PCR) 07/13/21 07/13/21 07/13/21 08:01 08:08 10:17 WBC MCH MCHC RDW Lymph % (Auto) [place] % (Auto) Eos % (Auto) Lymph # (Auto) [place] # (Auto) Eos # (Auto) Baso # (Auto) Seg Neutrophils % Seg Neuts % (Manual) Lymphocytes % (Manual) Seg Neutrophils # Seg Neutrophils # Man Lymphocytes # (Manual) D-Dimer ABG pH POC ABG pCO2 POC ABG pO2 ABG pO2 ABG HCO3 ABG O2 Saturation ABG Base Excess ABG Oxyhemoglobin ABG Sodium ABG Chloride ABG Glucose Oxyhemoglobin Carboxyhemoglobin Sodium Potassium Chloride 94.4 L Carbon Dioxide 34 H BUN Creatinine 0.3 L Glucose 149 H POC Glucose 132 H 265 H Hemoglobin A1c Ferritin AST ALT Alkaline Phosphatase Lactate Dehydrogenase C-Reactive Protein Total Protein Albumin Arterial Blood Glucose Coronavirus (PCR) 07/13/21 07/13/21 07/14/21 17:58 21:41 07:34 WBC MCH MCHC RDW Lymph % (Auto) [place] % (Auto) Eos % (Auto) Lymph # (Auto) [place] # (Auto) Eos # (Auto) Baso # (Auto) Seg Neutrophils % Seg Neuts % (Manual) Lymphocytes % (Manual) Seg Neutrophils # Seg Neutrophils # Man Lymphocytes # (Manual) D-Dimer ABG pH POC ABG pCO2 POC ABG pO2 ABG pO2 ABG HCO3 ABG O2 Saturation ABG Base Excess ABG Oxyhemoglobin ABG Sodium ABG Chloride ABG Glucose Oxyhemoglobin Carboxyhemoglobin Sodium Potassium Chloride Carbon Dioxide BUN Creatinine Glucose POC Glucose 217 H 223 H 116 H Hemoglobin A1c Ferritin AST ALT Alkaline Phosphatase Lactate Dehydrogenase C-Reactive Protein Total Protein Albumin Arterial Blood Glucose Coronavirus (PCR) 07/14/21 07/14/21 07/14/21 10:50 17:33 20:51 WBC MCH MCHC RDW Lymph % (Auto) [place] % (Auto) Eos % (Auto) Lymph # (Auto) [place] # (Auto) Eos # (Auto) Baso # (Auto) Seg Neutrophils % Seg Neuts % (Manual) Lymphocytes % (Manual) Seg Neutrophils # Seg Neutrophils # Man Lymphocytes # (Manual) D-Dimer ABG pH POC ABG pCO2 POC ABG pO2 ABG pO2 ABG HCO3 ABG O2 Saturation ABG Base Excess ABG Oxyhemoglobin ABG Sodium ABG Chloride ABG Glucose Oxyhemoglobin Carboxyhemoglobin Sodium Potassium Chloride Carbon Dioxide BUN Creatinine Glucose POC Glucose 191 H 173 H 132 H Hemoglobin A1c Ferritin AST ALT Alkaline Phosphatase Lactate Dehydrogenase C-Reactive Protein Total Protein Albumin Arterial Blood Glucose Coronavirus (PCR) 07/15/21 07/15/21 07/15/21 04:00 07:59 12:31 WBC MCH MCHC RDW Lymph % (Auto) [place] % (Auto) Eos % (Auto) Lymph # (Auto) [place] # (Auto) Eos # (Auto) Baso # (Auto) Seg Neutrophils % Seg Neuts % (Manual) Lymphocytes % (Manual) Seg Neutrophils # Seg Neutrophils # Man Lymphocytes # (Manual) D-Dimer ABG pH POC ABG pCO2 POC ABG pO2 ABG pO2 ABG HCO3 ABG O2 Saturation ABG Base Excess ABG Oxyhemoglobin ABG Sodium ABG Chloride ABG Glucose Oxyhemoglobin Carboxyhemoglobin Sodium Potassium Chloride 96.0 L Carbon Dioxide 32 H BUN Creatinine 0.3 L Glucose 208 H POC Glucose 117 H 195 H Hemoglobin A1c Ferritin AST ALT Alkaline Phosphatase Lactate Dehydrogenase C-Reactive Protein Total Protein Albumin Arterial Blood Glucose Coronavirus (PCR) 07/15/21 07/15/21 07/16/21 18:00 20:57 04:40 WBC MCH MCHC RDW 17.1 H Lymph % (Auto) [place] % (Auto) Eos % (Auto) Lymph # (Auto) [place] # (Auto) Eos # (Auto) Baso # (Auto) Seg Neutrophils % Seg Neuts % (Manual) Lymphocytes % (Manual) Seg Neutrophils # Seg Neutrophils # Man Lymphocytes # (Manual) D-Dimer ABG pH POC ABG pCO2 POC ABG pO2 ABG pO2 ABG HCO3 ABG O2 Saturation ABG Base Excess ABG Oxyhemoglobin ABG Sodium ABG Chloride ABG Glucose Oxyhemoglobin Carboxyhemoglobin Sodium Potassium Chloride Carbon Dioxide BUN Creatinine Glucose POC Glucose 217 H 111 H Hemoglobin A1c Ferritin AST ALT Alkaline Phosphatase Lactate Dehydrogenase C-Reactive Protein Total Protein Albumin Arterial Blood Glucose Coronavirus (PCR) 07/16/21 07/16/21 07/16/21 04:40 07:08 11:11 WBC MCH MCHC RDW Lymph % (Auto) [place] % (Auto) Eos % (Auto) Lymph # (Auto) [place] # (Auto) Eos # (Auto) Baso # (Auto) Seg Neutrophils % Seg Neuts % (Manual) Lymphocytes % (Manual) Seg Neutrophils # Seg Neutrophils # Man Lymphocytes # (Manual) D-Dimer ABG pH POC ABG pCO2 POC ABG pO2 ABG pO2 ABG HCO3 ABG O2 Saturation ABG Base Excess ABG Oxyhemoglobin ABG Sodium ABG Chloride ABG Glucose Oxyhemoglobin Carboxyhemoglobin Sodium Potassium 3.4 L Chloride 94.6 L Carbon Dioxide 36 H BUN Creatinine < 0.2 L Glucose 101 H POC Glucose 118 H 184 H Hemoglobin A1c Ferritin AST ALT Alkaline Phosphatase Lactate Dehydrogenase C-Reactive Protein Total Protein Albumin Arterial Blood Glucose Coronavirus (PCR) 07/16/21 07/16/21 07/17/21 17:29 22:01 08:10 WBC MCH MCHC RDW Lymph % (Auto) [place] % (Auto) Eos % (Auto) Lymph # (Auto) [place] # (Auto) Eos # (Auto) Baso # (Auto) Seg Neutrophils % Seg Neuts % (Manual) Lymphocytes % (Manual) Seg Neutrophils # Seg Neutrophils # Man Lymphocytes # (Manual) D-Dimer ABG pH POC ABG pCO2 POC ABG pO2 ABG pO2 ABG HCO3 ABG O2 Saturation ABG Base Excess ABG Oxyhemoglobin ABG Sodium ABG Chloride ABG Glucose Oxyhemoglobin Carboxyhemoglobin Sodium Potassium Chloride Carbon Dioxide BUN Creatinine Glucose POC Glucose 200 H 147 H 118 H Hemoglobin A1c Ferritin AST ALT Alkaline Phosphatase Lactate Dehydrogenase C-Reactive Protein Total Protein Albumin Arterial Blood Glucose Coronavirus (PCR) 07/17/21 07/17/21 07/17/21 11:38 16:24 21:13 WBC MCH MCHC RDW Lymph % (Auto) [place] % (Auto) Eos % (Auto) Lymph # (Auto) [place] # (Auto) Eos # (Auto) Baso # (Auto) Seg Neutrophils % Seg Neuts % (Manual) Lymphocytes % (Manual) Seg Neutrophils # Seg Neutrophils # Man Lymphocytes # (Manual) D-Dimer ABG pH POC ABG pCO2 POC ABG pO2 ABG pO2 ABG HCO3 ABG O2 Saturation ABG Base Excess ABG Oxyhemoglobin ABG Sodium ABG Chloride ABG Glucose Oxyhemoglobin Carboxyhemoglobin Sodium Potassium Chloride Carbon Dioxide BUN Creatinine Glucose POC Glucose 151 H 268 H 115 H Hemoglobin A1c Ferritin AST ALT Alkaline Phosphatase Lactate Dehydrogenase C-Reactive Protein Total Protein Albumin Arterial Blood Glucose Coronavirus (PCR) 07/18/21 07/18/21 07/18/21 07:58 12:29 20:24 WBC MCH MCHC RDW Lymph % (Auto) [place] % (Auto) Eos % (Auto) Lymph # (Auto) [place] # (Auto) Eos # (Auto) Baso # (Auto) Seg Neutrophils % Seg Neuts % (Manual) Lymphocytes % (Manual) Seg Neutrophils # Seg Neutrophils # Man Lymphocytes # (Manual) D-Dimer ABG pH POC ABG pCO2 POC ABG pO2 ABG pO2 ABG HCO3 ABG O2 Saturation ABG Base Excess ABG Oxyhemoglobin ABG Sodium ABG Chloride ABG Glucose Oxyhemoglobin Carboxyhemoglobin Sodium Potassium Chloride Carbon Dioxide BUN Creatinine Glucose POC Glucose 135 H 139 H 130 H Hemoglobin A1c Ferritin AST ALT Alkaline Phosphatase Lactate Dehydrogenase C-Reactive Protein Total Protein Albumin Arterial Blood Glucose Coronavirus (PCR) 07/19/21 07/19/21 07/19/21 06:55 06:55 07:54 WBC 14.5 H MCH MCHC RDW 17.3 H Lymph % (Auto) 9.6 L Merrick % (Auto) Eos % (Auto) Lymph # (Auto) Merrick # (Auto) Eos # (Auto) 0.6 H Baso # (Auto) Seg Neutrophils % 80.3 H Seg Neuts % (Manual) Lymphocytes % (Manual) Seg Neutrophils # 11.7 H Seg Neutrophils # Man Lymphocytes # (Manual) D-Dimer ABG pH POC ABG pCO2 67.9 H POC ABG pO2 131.0 H ABG pO2 ABG HCO3 ABG O2 Saturation ABG Base Excess ABG Oxyhemoglobin ABG Sodium ABG Chloride 97.0 L ABG Glucose 133 H Oxyhemoglobin Carboxyhemoglobin Sodium Potassium Chloride 95.3 L Carbon Dioxide 35 H BUN Creatinine < 0.2 L Glucose 138 H POC Glucose Hemoglobin A1c Ferritin AST ALT Alkaline Phosphatase Lactate Dehydrogenase C-Reactive Protein Total Protein Albumin Arterial Blood Glucose 133 H Coronavirus (PCR) 07/19/21 07/19/21 07/19/21 08:10 11:43 17:04 WBC MCH MCHC RDW Lymph % (Auto) Merrick % (Auto) Eos % (Auto) Lymph # (Auto) [place] # (Auto) Eos # (Auto) Baso # (Auto) Seg Neutrophils % Seg Neuts % (Manual) Lymphocytes % (Manual) Seg Neutrophils # Seg Neutrophils # Man Lymphocytes # (Manual) D-Dimer ABG pH POC ABG pCO2 POC ABG pO2 ABG pO2 ABG HCO3 ABG O2 Saturation ABG Base Excess ABG Oxyhemoglobin ABG Sodium ABG Chloride ABG Glucose Oxyhemoglobin Carboxyhemoglobin Sodium Potassium Chloride Carbon Dioxide BUN Creatinine Glucose POC Glucose 129 H 126 H 108 H Hemoglobin A1c Ferritin AST ALT Alkaline Phosphatase Lactate Dehydrogenase C-Reactive Protein Total Protein Albumin Arterial Blood Glucose Coronavirus (PCR) 07/19/21 07/20/21 07/20/21 21:10 04:00 04:00 WBC MCH MCHC RDW 17.0 H Lymph % (Auto) [place] % (Auto) 8.9 H Eos % (Auto) 6.3 H Lymph # (Auto) [place] # (Auto) 0.9 H Eos # (Auto) 0.6 H Baso # (Auto) Seg Neutrophils % 70.2 H Seg Neuts % (Manual) Lymphocytes % (Manual) Seg Neutrophils # Seg Neutrophils # Man Lymphocytes # (Manual) D-Dimer ABG pH POC ABG pCO2 POC ABG pO2 ABG pO2 ABG HCO3 ABG O2 Saturation ABG Base Excess ABG Oxyhemoglobin ABG Sodium ABG Chloride ABG Glucose Oxyhemoglobin Carboxyhemoglobin Sodium Potassium Chloride 96.7 L Carbon Dioxide 36 H BUN Creatinine 0.2 L Glucose 102 H POC Glucose 109 H Hemoglobin A1c Ferritin AST ALT Alkaline Phosphatase Lactate Dehydrogenase C-Reactive Protein Total Protein Albumin 3.2 L Arterial Blood Glucose Coronavirus (PCR) 07/20/21 11:15 WBC MCH MCHC RDW Lymph % (Auto) [place] % (Auto) Eos % (Auto) Lymph # (Auto) [place] # (Auto) Eos # (Auto) Baso # (Auto) Seg Neutrophils % Seg Neuts % (Manual) Lymphocytes % (Manual) Seg Neutrophils # Seg Neutrophils # Man Lymphocytes # (Manual) D-Dimer ABG pH POC ABG pCO2 POC ABG pO2 ABG pO2 ABG HCO3 ABG O2 Saturation ABG Base Excess ABG Oxyhemoglobin ABG Sodium ABG Chloride ABG Glucose Oxyhemoglobin Carboxyhemoglobin Sodium Potassium Chloride Carbon Dioxide BUN Creatinine Glucose POC Glucose 109 H Hemoglobin A1c Ferritin AST ALT Alkaline Phosphatase Lactate Dehydrogenase C-Reactive Protein Total Protein Albumin Arterial Blood Glucose Coronavirus (PCR)
--- NOTE | 2021-07-20 13:08 | Progress Note ---
Assessment and Plan Assessment and plan: #Acute hypoxic respiratory failure -[id number] transition between BiPAP and high flow nasal cannula. Possible BiPAP at night and high flow during the day. -Discontinue prednisone per pulmonology. -Pulmonology following, assistance appreciated -Referral sent for LTACH (patient stay 90 days) and rejected x3. -encouraged prone positioning -will assess need for lasix PRN #Heart failure with preserved ejection fraction -TTE: LVEF 55-60% with diastolic dysfunction -will continue to monitor for signs of fluid overload #COVID-19 infection #COVID-19 pneumonia -Continue Covid vitamins #Insulin-dependent type 2 diabetes mellitus -Continue Lantus 15 units daily and sliding scale insulin #Dysuria-resolved #Possible UTI-resolved -Urinalysis ordered 07/09, not collected -s/p Levaquin x3 days #Anxiety -Stable -Continue Xanax #DVT prophylaxis -Lovenox 40 daily #Deconditioning -Will benefit from SNF after prolonged hospital stay, Resolved issues #Sepsis secondary to COVID-19 #Iatrogenic diarrhea #Hypomagnesemia #Hyponatremia #Protein calorie malnutrition #Advanced care planning -Disease education conducted, care plan discussed, diagnoses discussed, prognosis discussed, and patient acknowledges understanding with care plan -Time: +30-minute The high probability of a clinically significant, sudden or life threatening deterioration of the [respiratory] system(s) required my full and direct attention, intervention and personal management. The aggregate critical care time was [60] minutes. This time is in addition to time spent performing reported procedures but includes the following: [x] Data Review and interpretation [x] Patient assessment and monitoring of vital signs [x] Documentation [x] Medication orders and management Disposition Plan: Continue medical management Total Time Spent with Patient (Minutes): 45 minutes History Interval history: No acute events overnight. Hospitalist Physical - Constitutional Vitals: Temp Pulse Resp BP Pulse Ox 98.3 F 101 H 27 H 109/44 96 07/20/21 12:16 07/20/21 08:50 07/20/21 08:50 07/20/21 08:50 07/20/21 12:37 General appearance: Present: no acute distress, well-nourished, obese, other (Looks tired) - EENT Eyes: Present: PERRL, EOM intact ENT: hearing intact, clear oral mucosa, dentition normal - Neck Neck: Present: supple, normal ROM - Respiratory Respiratory effort: normal Details: On high flow nasal cannula - Cardiovascular Rhythm: regular Heart Sounds: Present: S1 & S2 - Extremities Extremities: no ischemia, pulses intact, pulses symmetrical, No edema, normal temperature, normal color Peripheral Pulses: within normal limits - Abdominal General gastrointestinal: soft, non-tender, non-distended, normal bowel sounds - Integumentary Integumentary: Present: clear, warm, dry - Psychiatric Psychiatric: appropriate mood/affect, memory intact, cooperative - Neurologic Neurologic: CNII-XII intact, moves all extremities Results - Labs CBC & Chem 7: 07/20/21 04:00 07/20/21 04:00 Labs: Laboratory Last Values WBC 10.0 K/mm3 (4.5-11.0) 07/20/21 04:00 RBC 3.93 M/mm3 (3.65-5.03) 07/20/21 04:00 Hgb 12.2 gm/dl (10.1-14.3) 07/20/21 04:00 Hct 37.5 % (30.3-42.9) 07/20/21 04:00 MCV 96 fl (79-97) 07/20/21 04:00 MCH 31 pg (28-32) 07/20/21 04:00 MCHC 33 % (30-34) 07/20/21 04:00 RDW 17.0 % (13.2-15.2) H 07/20/21 04:00 Plt Count 346 K/mm3 (140-440) 07/20/21 04:00 Lymph % (Auto) 14.0 % (13.4-35.0) 07/20/21 04:00 [place] % (Auto) 8.9 % (0.0-7.3) H 07/20/21 04:00 Eos % (Auto) 6.3 % (0.0-4.3) H 07/20/21 04:00 Baso % (Auto) 0.6 % (0.0-1.8) 07/20/21 04:00 Lymph # (Auto) 1.4 K/mm3 (1.2-5.4) 07/20/21 04:00 [place] # (Auto) 0.9 K/mm3 (0.0-0.8) H 07/20/21 04:00 Eos # (Auto) 0.6 K/mm3 (0.0-0.4) H 07/20/21 04:00 Baso # (Auto) 0.1 K/mm3 (0.0-0.1) 07/20/21 04:00 Add Manual Diff Complete 07/09/21 04:45 Total Counted 100 07/09/21 04:45 Seg Neutrophils % 70.2 % (40.0-70.0) H 07/20/21 04:00 Seg Neuts % (Manual) 82.0 % (40.0-70.0) H 07/09/21 04:45 Band Neutrophils % 1.0 % 05/12/21 04:05 Lymphocytes % (Manual) 13.0 % (13.4-35.0) L 07/09/21 04:45 Monocytes % (Manual) 3.0 % (0.0-7.3) 07/09/21 04:45 Eosinophils % (Manual) 2.0 % (0.0-4.3) 07/09/21 04:45 Nucleated RBC % Not Reportable 07/09/21 04:45 Seg Neutrophils # 7.0 K/mm3 (1.8-7.7) 07/20/21 04:00 Seg Neutrophils # Man 7.8 K/mm3 (1.8-7.7) H 07/09/21 04:45 Band Neutrophils # 0.0 K/mm3 07/09/21 04:45 Lymphocytes # (Manual) 1.2 K/mm3 (1.2-5.4) 07/09/21 04:45 Abs React Lymphs (Man) 0.0 K/mm3 07/09/21 04:45 Monocytes # (Manual) 0.3 K/mm3 (0.0-0.8) 07/09/21 04:45 Eosinophils # (Manual) 0.2 K/mm3 (0.0-0.4) 07/09/21 04:45 Basophils # (Manual) 0.0 K/mm3 (0.0-0.1) 07/09/21 04:45 Metamyelocytes # 0.0 K/mm3 07/09/21 04:45 Myelocytes # 0.0 K/mm3 07/09/21 04:45 Promyelocytes # 0.0 K/mm3 07/09/21 04:45 Blast Cells # 0.0 K/mm3 07/09/21 04:45 WBC Morphology Not Reportable 07/09/21 04:45 Hypersegmented Neuts Not Reportable 07/09/21 04:45 Hyposegmented Neuts Not Reportable 07/09/21 04:45 Hypogranular Neuts Not Reportable 07/09/21 04:45 Smudge Cells Not Reportable 07/09/21 04:45 Toxic Granulation Not Reportable 07/09/21 04:45 Toxic Vacuolation Not Reportable 07/09/21 04:45 Dohle Bodies Not Reportable 07/09/21 04:45 Pelger-Huet Anomaly Not Reportable 07/09/21 04:45 Janelle Rods Not Reportable 07/09/21 04:45 Platelet Estimate Consistent w auto 07/09/21 04:45 Clumped Platelets Not Reportable 07/09/21 04:45 Plt Clumps, EDTA Not Reportable 07/09/21 04:45 Large Platelets Not Reportable 07/09/21 04:45 Giant Platelets Rare 07/09/21 04:45 Platelet Satelliting Not Reportable 07/09/21 04:45 Plt Morphology Comment Not Reportable 07/09/21 04:45 RBC Morphology Not Reportable 07/09/21 04:45 Dimorphic RBCs Not Reportable 07/09/21 04:45 Polychromasia Not Reportable 07/09/21 04:45 Hypochromasia Few 07/09/21 04:45 Poikilocytosis Not Reportable 07/09/21 04:45 Anisocytosis Not Reportable 07/09/21 04:45 Microcytosis Not Reportable 07/09/21 04:45 Macrocytosis Not Reportable 07/09/21 04:45 Spherocytes Not Reportable 07/09/21 04:45 Pappenheimer Bodies Not Reportable 07/09/21 04:45 Sickle Cells Not Reportable 07/09/21 04:45 Target Cells Not Reportable 07/09/21 04:45 Tear Drop Cells Not Reportable 07/09/21 04:45 Ovalocytes Not Reportable 07/09/21 04:45 Stomatocytes 1+ 07/09/21 04:45 Helmet Cells Not Reportable 07/09/21 04:45 [place] Bodies Not Reportable 07/09/21 04:45 [place] Rings Not Reportable 07/09/21 04:45 [place] Cells Not Reportable 07/09/21 04:45 Bite Cells Not Reportable 07/09/21 04:45 Crenated Cell Not Reportable 07/09/21 04:45 Elliptocytes Not Reportable 07/09/21 04:45 Acanthocytes (Spur) Not Reportable 07/09/21 04:45 Rouleaux Not Reportable 07/09/21 04:45 Hemoglobin C Crystals Not Reportable 07/09/21 04:45 Schistocytes Not Reportable 07/09/21 04:45 Malaria parasites Not Reportable 07/09/21 04:45 [place] Bodies Not Reportable 07/09/21 04:45 Hem Pathologist Commnt No 07/09/21 04:45 D-Dimer 638.35 ng/mlDDU (0-234) H 07/09/21 04:45 ABG pH 7.369 (7.320-7.450) 07/19/21 07:54 POC ABG pCO2 67.9 mmHg (32.0-48.0) H 07/19/21 07:54 ABG pCO2 50.2 mm Hg 05/14/21 02:23 POC ABG pO2 131.0 mmHg (83-108) H 07/19/21 07:54 ABG pO2 130.3 mm Hg (80.0-90.0) H 05/14/21 02:23 POC ABG HCO3 38.3 07/19/21 07:54 ABG HCO3 30.6 mmol/L (20.0-26.0) H 05/14/21 02:23 ABG O2 Saturation 99.0 (0-100) 07/19/21 07:54 ABG O2 Content 17.9 (0.0-44) 05/14/21 02:23 POC ABG Base Excess 10.3 07/19/21 07:54 ABG Base Excess 4.9 mmol/L (-2.0-3.0) H 05/14/21 02:23 ABG Hemoglobin 13.5 (12.0-17.5) 07/19/21 07:54 ABG Oxyhemoglobin 97.9 (94-98) 07/19/21 07:54 ABG Carboxyhemoglobin 1.4 % (0.0-5.0) 05/14/21 02:23 ABG Methemoglobin 0.1 (0.0-1.5) 07/19/21 07:54 ABG Sodium 138.5 mmol/L (136.0-145.0) 07/19/21 07:54 ABG Potassium 4.3 mmol/L (3.40-4.50) 07/19/21 07:54 ABG Chloride 97.0 mmol/L (98-107) L 07/19/21 07:54 ABG Glucose 133 mg/dL (65-95) H 07/19/21 07:54 Oxyhemoglobin 96.5 % (95.0-99.0) 05/14/21 02:23 Carboxyhemoglobin 1.0 (0.5-1.5) 07/19/21 07:54 FiO2 90 % 05/14/21 02:23 FiO2 % 100.0 07/19/21 07:54 Sodium 141 mmol/L (137-145) 07/20/21 04:00 Potassium 4.2 mmol/L (3.6-5.0) 07/20/21 04:00 Chloride 96.7 mmol/L (98-107) L 07/20/21 04:00 Carbon Dioxide 36 mmol/L (22-30) H 07/20/21 04:00 Anion Gap 13 mmol/L 07/20/21 04:00 BUN 9 mg/dL (7-17) 07/20/21 04:00 Creatinine 0.2 mg/dL (0.6-1.2) L 07/20/21 04:00 Estimated GFR > 60 ml/min 07/20/21 04:00 BUN/Creatinine Ratio 45 % 07/20/21 04:00 Glucose 102 mg/dL (65-100) H 07/20/21 04:00 POC Glucose 109 mg/dL (70-105) H 07/20/21 11:15 Hemoglobin A1c 8.5 % (4-6) H 04/18/21 07:36 Calcium 9.6 mg/dL (8.4-10.2) 07/20/21 04:00 Phosphorus 4.00 mg/dL (2.5-4.5) 07/20/21 04:00 Magnesium 1.80 mg/dL (1.7-2.3) 07/20/21 04:00 Ferritin 155.9 ng/mL (10.0-200.0) 07/09/21 04:45 Total Bilirubin 0.20 mg/dL (0.1-1.2) 07/20/21 04:00 AST 18 units/L (5-40) 07/20/21 04:00 ALT 40 units/L (7-56) 07/20/21 04:00 Alkaline Phosphatase 70 units/L (35-129) 07/20/21 04:00 Lactate Dehydrogenase 475 units/L (91-180) H 06/05/21 05:26 C-Reactive Protein 4.30 mg/dL (0.00-1.30) H 07/09/21 04:45 NT-Pro-B Natriuret Pep 59.45 pg/mL (0-450) 07/07/21 13:40 Total Protein 7.1 g/dL (6.3-8.2) 07/20/21 04:00 Albumin 3.2 g/dL (3.9-5) L 07/20/21 04:00 Albumin/Globulin Ratio 0.8 % 07/20/21 04:00 Triglycerides < 9 mg/dL (2-149) 05/03/21 04:30 Procalcitonin < 0.05 ng/mL (<0.15) 05/23/21 09:50 Arterial Blood Glucose 133 mg/dL (65-95) H 07/19/21 07:54 Arterial Blood Ionized Calcium 4.9 mg/dL (4.6-5.3) 05/03/21 04:49 Coronavirus (PCR) Positive (Negative) A 06/05/21 08:30 Amos/IV: Voiding Method External Female Catheter Active Medications - Current Medications Current Medications: Generic Name Dose Route Start Last Admin Trade Name Freq PRN Reason Stop Dose Admin Acetaminophen 650 mg 07/02/21 17:48 07/18/21 23:08 Acetaminophen 325 Mg Tab PO 650 mg Q4H PRN Administration Pain, Mild (1-3) Albuterol 2.5 mg 04/16/21 13:39 04/21/21 20:39 Albuterol 2.5 Mg/3 Ml Nebu IH 2.5 mg Q4HRT PRN Administration Shortness Of Breath Alprazolam 2 mg 07/04/21 12:00 07/20/21 11:13 Alprazolam 1 Mg Tab PO Not Given BID TUTU Ascorbic Acid 500 mg 04/24/21 10:00 07/20/21 11:06 Ascorbic Acid 500 Mg Tab PO 500 mg QDAY TUTU Administration Cholecalciferol 1,000 unit 04/17/21 10:00 07/20/21 11:06 Cholecalciferol (Vit D3) 1000 Unit (25 Mcg) Tab PO 1,000 unit QDAY TUTU Administration Enoxaparin Sodium 40 mg 05/19/21 22:00 07/19/21 21:12 Enoxaparin 40 Mg/0.4 Ml Inj SUB-Q 40 mg QDAY@2200 TUTU Administration Protocol Sodium Chloride 1,000 mls @ 110 mls/hr 07/20/21 06:20 07/20/21 06:27 Nacl 0.45% 1000 Ml IV 110 mls/hr DIRECT TUTU Administration Ibuprofen 600 mg 07/11/21 11:00 07/19/21 20:06 Ibuprofen 600 Mg Tab PO 600 mg Q6H PRN Administration Ear Pain Insulin Glargine 15 units 06/25/21 10:00 07/19/21 10:32 Insulin Glargine 100 Units/Ml SUB-Q Not Given DAILY [facility] Insulin Human Lispro 0 unit 05/18/21 12:00 07/19/21 21:13 Insulin Lispro 100 Unit/Ml SUB-Q Not Given ACHS [facility] Protocol Ondansetron HCl 4 mg 04/16/21 14:00 05/30/21 10:07 Ondansetron 4 Mg/2 Ml Inj IV 4 mg Q8H PRN Administration Nausea And Vomiting Polyethylene Glycol 17 gm 07/16/21 20:00 Polyethylene Glycol 3350 17 Gm Powder PO QDAY PRN Constipation Sodium Chloride 10 ml 04/16/21 13:39 07/15/21 21:07 Sodium Chloride 0.9% 10 Ml Flush Syringe IV 10 ml PRN PRN Administration LINE FLUSH Zinc Sulfate 220 mg 04/16/21 22:00 07/20/21 11:07 Zinc Sulfate 220 Mg Cap PO 220 mg BID TUTU Administration Zolpidem Tartrate 10 mg 05/26/21 08:56 07/19/21 20:08 Zolpidem 5 Mg Tab PO 10 mg QHS PRN Administration Insomnia Nutrition/Malnutrition Assess - Dietary Evaluation Nutrition/Malnutrition Findings: Nutrition Notes Start: 04/23/21 07:41 Freq: Status: Active Protocol: Document 07/03/21 16:54 GB (Rec: 07/03/21 17:11 GB [email or web address]) Nutrition Notes Initial or Follow up Reassessment Current Diagnosis Respiratory Failure Other Pertinent Diagnosis oral thrush, COVID-19 pneu Current Diet consistent carbohydrate Labs/Tests 07/03: creatinine 0.3, K 3.2 Pertinent Medications Vit C, Vit D3, D5 (PRN), Prednisone, NaCl, Zn Sulfate Height 4 ft 11.84 in Weight 60.3 kg [place] Body Weight (kg) 45.09 BMI 26.1 Weight change and time frame 04/16/21: 74.843kg 05/17/21: 68.1kg 06/16/21: 60.3kg change of -14.54kg for -19.43% in 60 days. Per MD note: pt has been diuresed thorughout stay. Weight Status Overweight Subjective/Other Information MD notes 07/03: pt showing improvement, prednisone weaning down, possible weaning of O2. Last BM: 07/02 PO intake recorded at 50-100% Percent of energy/protein needs met: PO intake of meals meet 75% or greater of EEN Burn Absent Trauma Absent GI Symptoms None Food Allergy No Skin Integrity/Comment skin tear rt/lt buttocks Current % PO Good (75-100%) Minimum of two criteria No #3 Nutrition Diagnosis No nutrition diagnosis at this time Etiology respiratory failure As Evidenced by Signs and Symptoms recovering, good po, weight loss r/t diurese therapy #2 Nutrition Diagnosis Malnutrition Comments: Wt loss due to diurese for most of stay. PO intake is recorded at 75- 100% Etiology acute illness As Evidenced by Signs and Symptoms <50% EER in >5 days, >5% wt loss in 1 month Diagnosis Progress(for reassessment Resolved documentation) #1 Nutrition Diagnosis Inadequate oral intake Etiology ARF As Evidenced by Signs and Symptoms pt continues to meet 100%/93% of kcal/protein needs Diagnosis Progress(for reassessment Resolved documentation) Is patient on ventilator? No Is Patient Ambulatory and/or Out of Bed Yes REE-([place]-St. Jeor-ambulatory/OOB) [ 1491.022 [id number]] Kcal/Kg value to use for calculation 25 Approximate Energy Requirements Using 1508 kcal/Kg Calculation Used for Recommendations Kcal/kg Additional Notes Pro needs 1-1.2g/kg @ 60k -72g/day Fluid needs 1ml/kcal or per MD Nutrition Intervention Change Diet Order: continue Nutrition Support: n/a Add Supplement/Snack (indicate name/kcal n/a /protein ) Goal #1 PO intake of meals to be 75% or greater daily for LOS Goal #2 Weight to stabilize +/-3% current weight for LOS Follow-Up By: 08/07/21 Additional Comments f/u: po intake, weight
[2021-07-20] MEDS: INSULIN LISPRO 100 UNIT/ML SUB-Q SCH (21:05)
[2021-07-20] MEDS: ZOLPIDEM 5 MG TAB PO PRN (21:08)
[2021-07-20] MEDS: ACETAMINOPHEN 325 MG TAB PO PRN (22:10)
[2021-07-20] MEDS: ENOXAPARIN 40 MG/0.4 ML INJ SUB-Q SCH (22:11)
[2021-07-21 05:30] LABS: Blood Urea Nitrogen 6 mg/dL (7-17); Calcium 8.9 mg/dL (8.4-10.2); Hemolysis Index 6
[2021-07-21 05:34] LABS: Basophils % (Auto) 0.4 % (0.0-1.8); Eosinophils # (Auto) 0.3 K/mm3 (0.0-0.4); Eosinophils % (Auto) 2.4 % (0.0-4.3); Hematocrit 35.4 % (30.3-42.9); Hemoglobin 11.4 gm/dl (10.1-14.3); Lymphocytes # (Auto) 1.2 K/mm3 (1.2-5.4); Lymphocytes % (Auto) 9.3 % (13.4-35.0); Mean Corpuscular HGB Conc 32 % (30-34); Mean Corpuscular Volume 96 fl (79-97); Monocytes # (Auto) 0.9 K/mm3 (0.0-0.8); Monocytes % (Auto) 6.8 % (0.0-7.3); Platelet Count 331 K/mm3 (140-440); Red Blood Count 3.68 M/mm3 (3.65-5.03); Red Cell Distribution Width 16.8 % (13.2-15.2)
[2021-07-21 05:35] LABS: BUN/Creatinine Ratio 30
[2021-07-21] MEDS: INSULIN LISPRO 100 UNIT/ML SUB-Q SCH ×5 (07:50→21:38)
[2021-07-21] MEDS: INSULIN GLARGINE 100 UNITS/ML SUB-Q SCH ×2 (07:50→09:11)
[2021-07-21] MEDS ORDERED: MAGNESIUM SULFATE 1 GM in SODIUM CHLORIDE 0.9% 50 ML IV ONE (08:06)
[2021-07-21] MEDS: ACETAMINOPHEN 325 MG TAB PO PRN ×2 (09:10→21:54)
[2021-07-21] MEDS: CHOLECALCIFEROL (VIT D3) 1000 UNIT (25 mcg) TAB PO SCH (09:11)
[2021-07-21] MEDS: ZINC SULFATE 220 MG CAP PO SCH ×2 (09:11→21:38)
[2021-07-21] MEDS: ALPRAZolam 1 MG TAB PO SCH ×2 (09:11→21:37)
[2021-07-21] MEDS: ASCORBIC ACID 500 MG TAB PO SCH (09:11)
--- NOTE | 2021-07-21 12:34 | Progress Note ---
Assessment and Plan 50 y/o female with acute respiratory failure secondary to COVID19 pneumonia. 07/21/21: Wean FiO2 as tolerated. Patient has never proned the entire 96 days she has been here. Will continue bipap at night. Hold on lasix again today. Prognosis remains guarded. Has finished steroids and all other experimental COVID drugs with minimal to no improvement. 07/20/21: Give patient a break off of bipap and attempt high flow nasal cannula today. Will feed. Suggest keeping bipap therapy at night. Monitor fluid balance and BP. May need more lasix. 07/19/21: This was not related to stopping steroids as hemodynamically she is stable. Her sats is very good on 90%, I dropped to 85 and will continue to wean. She speaks no senegalese and is very anxious. This adds to her work of breathing. COntinue to wean FiO2 as tolerated. Will give periodic breaks on bipap therapy. Guarded prognosis. 07/17/21: will stop steroids today. Hold on lasix given marginal blood pressure. Guarded prognosis. 07/15/21: Lasix today. Positive fluid balance all weekend based on I/O. Prone. Wean for sats >88% 07/12/21: Gave lasix 40mg IV again this am. Per charting yesterday was the first net negative day. Suggest PRN diuresis over the weekend as well. My partner is rounding but will likely see as needed. Continue to wean for sats >88% 07/11/21: Lasix 40mg IV this am. Attempt to prone if able. Attempt to achieve daily net negative state. Wean for sats >88%. Guarded prognosis. Will change prednisone to 5mg daily starting tomorrow. 07/09/21: Echo shows diastolic dysfunction. Will given an additional 40 of IV lasix today. Monitor daily and wean aggressively for sats >88% 07/08/21: Worsening CXR, Gave lasix yesterday and will give again today. Suggest checking echo, ekg. Prognosis is poor now with this change. 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 07/05/21: Will monitor over the weekend. Worst case scenario, may need to go back up to Prednisone 20 at least. Prone if able. Unsure why all of sudden oxygen requirement increasing. Will repeat CXR. 07/03/21: Down to 10 of prednisone. Will keep through the weekend and then drop to 5 on Thursday. PT/OT assessment if not done. Suggest maybe weaning flow now given FiO2 down to 50%. Prognosis is still guarded. 07/01/21: Will drop steroids to 10mg daily starting tomorrow. Wean for sats >88%. Prone. PT/OT should be seeing now that oxygen requirement is down more. 06/28/21: Continue to wean as tolerated. Will drop steroids down even further next week. Will see PRN over the weekend. 06/26/21: Will drop steroids down to 20 starting tomorrow. Prone. Continue to wean as tolerated. 06/24/21: Continue Pred, will drop to 20 daily tomorrow. Prone if able. Hopeful they can wean FiO2 more. May need to consider increasing flow for a while. 06/21/21: Continue pred at 40, will decrease likely Thursday/Thursday to 20 daily. Prone if able. Continue to wean as tolerated. Prognosis still remains guarded. 06/20/21: Will drop steroids down to 40 today. Proning. Continue to wean FiO2. 06/18/21: Wean Fio2 for sats >88%. Please encourage proning. Drop steroids down to 40 on . 06/14/21: Continue oral steroid therapy. Will do further weaning next week. Wean for sats >88% and prone as tolerated. Will see as needed over the weekend. 06/13/21: Will change to prednisone 60 daily starting tomorrow. Prone if able and wean for sats >88% 06/11/21: no new recs, will change to oral steroids tomorrow, continue to prone if able and wean for sats >88% 06/10/21: Will change to oral steroids on Thursday to begin prolonged taper 06/06/21: Continue to wean as tolerated, will drop steroids on tomorrow. 06/04/21: Clinically no change. Will drop steroids down the end of this week. 05/31/21: Clinically no change. Not eligible for LTACH. Encourage Proning. Will drop steroids down to 40 q8 05/29/21: No acute changes clinically. Still on HFNC but not really able to wean. Continue to encourage proning. Will drop steroids further on Thursday. 05/27/21: No improvement over the weekend but also no worsening. No other st rategies to offer. Please continue to encourage patient to prone. I dropped steroids on yesterday. Will wean more later in the week. 05/24/21: No new recs again for today. Will see as needed over the weekend but follow chart peripherally for changes. 05/22/21: No new recs for today. Prognosis remains guarded. 05/21/21: Wean as tolerated. Prone if able. Guarded prognosis 05/20/21: COntinue current level of care. 05/17/21: Prone if possible. Wean FiO2 for sats >88%. Continue scheduled a tivan. Prognosis is very very guarded. Unfunded so not a candidate for LTACH 05/16/21: Prone if willing. Wean FIO2 if patient will allow. Anxiety control. Prognosis still remains very guarded. 05/15/21: Not sure if MAR is accurate but may have only gotten one dose of scheduled anixolytic therapy. Continue proning as tolerated, and wean FiO2 and flow for sats >88%. Prognosi remains very very guarded to poor. 05/14/21: Will discontinue the buspar and make the ativan scheduled but will do q6 as oppose to q4 and attempt to leave parameters for nursing when not to give. If anxiety could be controlled, feel that patient could be weaned further. She has no funding so she is not a candidate for LTACH. Prone if possible. Guarded prognosis. This is her 28th day. 05/13/21: Ordered buspar 10 BID to start with to help with anxiety. Please continue to wean FiO2 as tolerated. Will remind nurse that there is PRN ativan available. Continue higher doses of steroids. Prone if able. 05/12/21: Patient may need something longer acting for anxiety. Per chart has not gotten any ativan in days. Would be ok with either buspar or low dose klonopin bid. COntinue higher doses of steroids as patient seems to be responding. Prone if possible. 05/11/21: Continue high doses of steroids and continue to wean for sats >88%. Please encourage proning. 05/10/21: Will continue this dose of steroid at least through the weekend and assess for improvement. will speak with RT about aggressive weaning. Full dose anticoagulation continues. Very very guarded to poor prognosis. 05/09/21: Going to consider increasing steroids to 125q8, maybe as early as tomorrow. continue full dose anticoagulation. 05/08/21: Continue anticoagulation and steroids. Prone if possible. Anxiety control. No objection to CTA if this can happen. Very very guarded prognosis. 05/07/21: Spoke with IMS, not opposed to full dose anticoagulation. If patient goes back on NRB HFNC combo may need to consider restarting PPN again. Encourage proning. Guarded prognosis. 05/06/21: Continue to wean FiO2 and flow for sats >88%. Tolerating diet now so will stop PPN. Continue anxiety control. Continue IV steroids. Would not object to transfer to COVID floor if bed available. Not sure why she was titrated back up to 100% from 85 as all sats documented in the RT's notes were acceptable. Same for under vital signs as well. 05/03/21: Set back last night from yesterday. Continue bipap therapy for now and attempt HFNC maybe later this afternoon. Continue to use PRN ativan but may need to schedule as she likely took off mask from anxiety. Continue IV steroids. Hold on transfer to COVID Floor. 05/02/21: Continue to wean FiO2 as tolerated for sats >88%. Will continue bipap at night. Patient has no funding so not a candidate for LTACH. Given that she has been stable and not requiring the combo of HFNC and NRB, will consider moving to COVID floor. 05/01/21: Continue to wean FiO2 for sats >88%. A sat of 90 is more than acceptable and oxygen should not be increased for this unless patient desats and remains at a sat lower than 88. Bipap at night to give some form of relief and HFNC during the day. Currently on just this alone which is improvement. Ok with daily diuresis but must monitor renal function and BP closely. She was over diuresed last week and we ended up giving fluid back. Prognosis remains guarded. 04/30/21: Will start CLinimix today for nutritional support, without electrolytes. Check labs in am. Prone if able. Continue precedx for anxiety. Very very guarded prognosis. Attempting our best to not intubate. 04/29/21: Continue precedex. Continue IV solumedrol. Prone if able. Guarded prognosis. 04/28/21: Continue Precedex. Picc team attempting to place line now. Stable on Bipap. Ordered steroids IV solumedrol to start today. Prognosis remains guar ded, still at very high risk for intubation. 04/27/21: Hypotension improving/improved. Hold on any further lasix dosing. Continue precedex to help with anxeity. later today please attempt HFNC with NRB if needed. Attempt to feed if possible. Steroids end today, please order solumedrol 40q8 to start tomorrow (04/28/21). guarded prognosis. 04/26/21: Hypotension today, most likely from precedex use and diuresis that I did the last several days. Will bolus again today. Consider midodrine if BP does not respond. 04/25/21: Lasix again today. Keep PRN ativan for now. Hold on precedex for now. Guarded prognosis. Labs ordered for tomorrow. 04/24/21: Lasix today. Will also start patient on low dose PRN ativan. If this does not help will then try precedex. Guarded prognosis. 04/23/21: Prone as tolerated. No lasix today. Continue decadron. Guarded prognosis. High risk for intubation and high mortality with intubation. 04/19/21: Prone as tolerated during the day and sleep prone at night. Continue IV remdesivir and steroids. Did get actemra. Guarded prognosis. 1. Daily net negative state 2. Prone if possible 3. IV remdesivir. 4. Should be a candidate for Actemra 5. IV steroids 6. Guarded Prognosis Subjective Date of service: 07/21/21 Principal diagnosis: Covid-19 Interval history: Back on NRB and HFNC. Wore bipap last night. Asleep right now. Objective Vital Signs - 12hr 07/21/21 07/21/21 07/21/21 01:05 EST 02:00 02:46 Temperature 97.5 F L Pulse Rate 104 H Respiratory 31 H Rate Blood Pressure 133/71 O2 Sat by Pulse 97 96 Oximetry 07/21/21 07/21/21 07/21/21 03:30 04:00 04:35 Temperature Pulse Rate 108 H 99 H 99 H Respiratory 32 H 41 H 34 H Rate Blood Pressure 135/67 125/53 O2 Sat by Pulse 99 97 Oximetry 07/21/21 07/21/21 07/21/21 08:00 09:10 12:00 Temperature 97.5 F L 97.9 F Pulse Rate Respiratory 45 H Rate Blood Pressure O2 Sat by Pulse 95 Oximetry Constitutional: no acute distress, alert Eyes: non-icteric ENT: oropharynx moist Neck: supple Effort: normal Ascultation: Bilateral: diminished breath sounds Cardiovascular: regular rate and rhythm Gastrointestinal: normoactive bowel sounds, soft, non-tender, non-distended Integumentary: normal Extremities: no cyanosis, no edema, pink and warm Neurologic: normal mental status, non-focal exam, pupils equal and round, CN II- XII normal Psychiatric: mood appropriate, affect normal CBC and BMP: 07/21/21 04:48 07/21/21 04:48 ABG, PT/INR, D-dimer: ABG ABG pH 7.369 (7.320-7.450) 07/19/21 07:54 POC ABG pCO2 67.9 mmHg (32.0-48.0) H 07/19/21 07:54 ABG pCO2 50.2 mm Hg 05/14/21 02:23 POC ABG pO2 131.0 mmHg (83-108) H 07/19/21 07:54 ABG pO2 130.3 mm Hg (80.0-90.0) H 05/14/21 02:23 POC ABG HCO3 38.3 07/19/21 07:54 ABG O2 Saturation 99.0 (0-100) 07/19/21 07:54 PT/INR, D-dimer D-Dimer 638.35 ng/mlDDU (0-234) H 07/09/21 04:45 Abnormal lab findings: Abnormal Labs 04/16/21 04/16/21 04/16/21 11:42 11:42 11:42 WBC MCH MCHC RDW 16.1 H Lymph % (Auto) 7.8 L Pike % (Auto) Eos % (Auto) Lymph # (Auto) 0.8 L Pike # (Auto) Eos # (Auto) Baso # (Auto) Seg Neutrophils % 87.7 H Seg Neuts % (Manual) Lymphocytes % (Manual) Seg Neutrophils # 8.5 H Seg Neutrophils # Man Lymphocytes # (Manual) D-Dimer 338.70 H ABG pH POC ABG pCO2 POC ABG pO2 ABG pO2 ABG HCO3 ABG O2 Saturation ABG Base Excess ABG Oxyhemoglobin ABG Sodium ABG Chloride ABG Glucose Oxyhemoglobin Carboxyhemoglobin Sodium Potassium Chloride Carbon Dioxide BUN Creatinine Glucose 194 H POC Glucose Hemoglobin A1c Magnesium Ferritin AST ALT Alkaline Phosphatase Lactate Dehydrogenase C-Reactive Protein Total Protein 8.4 H Albumin 3.8 L Arterial Blood Glucose Coronavirus (PCR) 04/16/21 04/16/21 04/17/21 11:42 11:42 03:50 WBC MCH MCHC RDW 16.0 H Lymph % (Auto) 7.7 L Pike % (Auto) Eos % (Auto) Lymph # (Auto) 0.6 L Pike # (Auto) Eos # (Auto) Baso # (Auto) Seg Neutrophils % 89.8 H Seg Neuts % (Manual) Lymphocytes % (Manual) Seg Neutrophils # Seg Neutrophils # Man Lymphocytes # (Manual) D-Dimer ABG pH POC ABG pCO2 POC ABG pO2 ABG pO2 ABG HCO3 ABG O2 Saturation ABG Base Excess ABG Oxyhemoglobin ABG Sodium ABG Chloride ABG Glucose Oxyhemoglobin Carboxyhemoglobin Sodium Potassium Chloride Carbon Dioxide BUN Creatinine Glucose 195 H POC Glucose Hemoglobin A1c Magnesium Ferritin 254.3 H AST ALT Alkaline Phosphatase Lactate Dehydrogenase 359 H C-Reactive Protein 15.20 H Total Protein Albumin Arterial Blood Glucose Coronavirus (PCR) 04/17/21 04/17/21 04/17/21 03:50 08:26 08:26 WBC MCH MCHC RDW Lymph % (Auto) Pike % (Auto) Eos % (Auto) Lymph # (Auto) Pike # (Auto) Eos # (Auto) Baso # (Auto) Seg Neutrophils % Seg Neuts % (Manual) Lymphocytes % (Manual) Seg Neutrophils # Seg Neutrophils # Man Lymphocytes # (Manual) D-Dimer 262.48 H ABG pH POC ABG pCO2 POC ABG pO2 ABG pO2 ABG HCO3 ABG O2 Saturation ABG Base Excess ABG Oxyhemoglobin ABG Sodium ABG Chloride ABG Glucose Oxyhemoglobin Carboxyhemoglobin Sodium Potassium Chloride Carbon Dioxide BUN 20 H Creatinine 0.5 L Glucose 249 H 225 H POC Glucose Hemoglobin A1c Magnesium Ferritin AST ALT Alkaline Phosphatase Lactate Dehydrogenase 338 H C-Reactive Protein 17.20 H Total Protein Albumin 3.2 L Arterial Blood Glucose Coronavirus (PCR) 04/17/21 04/17/21 04/17/21 08:26 15:04 Unknown WBC MCH MCHC RDW Lymph % (Auto) Pike % (Auto) Eos % (Auto) Lymph # (Auto) Pike # (Auto) Eos # (Auto) Baso # (Auto) Seg Neutrophils % Seg Neuts % (Manual) Lymphocytes % (Manual) Seg Neutrophils # Seg Neutrophils # Man Lymphocytes # (Manual) D-Dimer ABG pH POC ABG pCO2 POC ABG pO2 ABG pO2 ABG HCO3 ABG O2 Saturation ABG Base Excess ABG Oxyhemoglobin ABG Sodium ABG Chloride ABG Glucose Oxyhemoglobin Carboxyhemoglobin Sodium Potassium Chloride Carbon Dioxide BUN 20 H Creatinine 0.5 L Glucose 246 H POC Glucose Hemoglobin A1c Magnesium Ferritin 392.0 H AST ALT Alkaline Phosphatase Lactate Dehydrogenase C-Reactive Protein Total Protein 8.3 H Albumin 3.1 L Arterial Blood Glucose Coronavirus (PCR) Positive A 04/18/21 04/18/21 04/18/21 05:06 05:06 07:36 WBC 11.6 H MCH MCHC RDW 16.1 H Lymph % (Auto) Pike % (Auto) Eos % (Auto) Lymph # (Auto) Pike # (Auto) Eos # (Auto) Baso # (Auto) Seg Neutrophils % Seg Neuts % (Manual) Lymphocytes % (Manual) Seg Neutrophils # Seg Neutrophils # Man Lymphocytes # (Manual) D-Dimer ABG pH POC ABG pCO2 POC ABG pO2 ABG pO2 ABG HCO3 ABG O2 Saturation ABG Base Excess ABG Oxyhemoglobin ABG Sodium ABG Chloride ABG Glucose Oxyhemoglobin Carboxyhemoglobin Sodium Potassium 5.2 H Chloride Carbon Dioxide BUN 22 H Creatinine 0.5 L Glucose 315 H POC Glucose Hemoglobin A1c 8.5 H Magnesium Ferritin AST ALT Alkaline Phosphatase Lactate Dehydrogenase C-Reactive Protein Total Protein Albumin 3.3 L Arterial Blood Glucose Coronavirus (PCR) 04/18/21 04/18/21 04/18/21 11:59 16:43 23:24 WBC MCH MCHC RDW Lymph % (Auto) Pike % (Auto) Eos % (Auto) Lymph # (Auto) Pike # (Auto) Eos # (Auto) Baso # (Auto) Seg Neutrophils % Seg Neuts % (Manual) Lymphocytes % (Manual) Seg Neutrophils # Seg Neutrophils # Man Lymphocytes # (Manual) D-Dimer ABG pH POC ABG pCO2 POC ABG pO2 ABG pO2 ABG HCO3 ABG O2 Saturation ABG Base Excess ABG Oxyhemoglobin ABG Sodium ABG Chloride ABG Glucose Oxyhemoglobin Carboxyhemoglobin Sodium Potassium Chloride Carbon Dioxide BUN Creatinine Glucose POC Glucose 284 H 273 H 290 H Hemoglobin A1c Magnesium Ferritin AST ALT Alkaline Phosphatase Lactate Dehydrogenase C-Reactive Protein Total Protein Albumin Arterial Blood Glucose Coronavirus (PCR) 04/19/21 04/19/21 04/19/21 04:19 04:19 08:10 WBC MCH MCHC RDW 15.7 H Lymph % (Auto) Pike % (Auto) Eos % (Auto) Lymph # (Auto) Pike # (Auto) Eos # (Auto) Baso # (Auto) Seg Neutrophils % Seg Neuts % (Manual) Lymphocytes % (Manual) Seg Neutrophils # Seg Neutrophils # Man Lymphocytes # (Manual) D-Dimer ABG pH POC ABG pCO2 POC ABG pO2 ABG pO2 ABG HCO3 ABG O2 Saturation ABG Base Excess ABG Oxyhemoglobin ABG Sodium ABG Chloride ABG Glucose Oxyhemoglobin Carboxyhemoglobin Sodium Potassium Chloride Carbon Dioxide BUN 27 H Creatinine 0.4 L Glucose 184 H POC Glucose 194 H Hemoglobin A1c Magnesium Ferritin AST ALT Alkaline Phosphatase Lactate Dehydrogenase C-Reactive Protein Total Protein Albumin 3.1 L Arterial Blood Glucose Coronavirus (PCR) 04/19/21 04/19/21 04/19/21 11:38 16:25 22:04 WBC MCH MCHC RDW Lymph % (Auto) Pike % (Auto) Eos % (Auto) Lymph # (Auto) Pike # (Auto) Eos # (Auto) Baso # (Auto) Seg Neutrophils % Seg Neuts % (Manual) Lymphocytes % (Manual) Seg Neutrophils # Seg Neutrophils # Man Lymphocytes # (Manual) D-Dimer ABG pH POC ABG pCO2 POC ABG pO2 ABG pO2 ABG HCO3 ABG O2 Saturation ABG Base Excess ABG Oxyhemoglobin ABG Sodium ABG Chloride ABG Glucose Oxyhemoglobin Carboxyhemoglobin Sodium Potassium Chloride Carbon Dioxide BUN Creatinine Glucose POC Glucose 224 H 297 H 251 H Hemoglobin A1c Magnesium Ferritin AST ALT Alkaline Phosphatase Lactate Dehydrogenase C-Reactive Protein Total Protein Albumin Arterial Blood Glucose Coronavirus (PCR) 04/20/21 04/20/21 04/20/21 05:28 08:43 16:21 WBC MCH MCHC RDW Lymph % (Auto) Pike % (Auto) Eos % (Auto) Lymph # (Auto) Pike # (Auto) Eos # (Auto) Baso # (Auto) Seg Neutrophils % Seg Neuts % (Manual) Lymphocytes % (Manual) Seg Neutrophils # Seg Neutrophils # Man Lymphocytes # (Manual) D-Dimer ABG pH POC ABG pCO2 POC ABG pO2 ABG pO2 ABG HCO3 ABG O2 Saturation ABG Base Excess ABG Oxyhemoglobin ABG Sodium ABG Chloride ABG Glucose Oxyhemoglobin Carboxyhemoglobin Sodium Potassium Chloride Carbon Dioxide BUN 27 H Creatinine Glucose 192 H POC Glucose 173 H 253 H Hemoglobin A1c Magnesium Ferritin AST ALT Alkaline Phosphatase Lactate Dehydrogenase C-Reactive Protein Total Protein Albumin 3.0 L Arterial Blood Glucose Coronavirus (PCR) 04/21/21 04/21/21 04/21/21 07:58 12:05 16:08 WBC MCH MCHC RDW Lymph % (Auto) Pike % (Auto) Eos % (Auto) Lymph # (Auto) Pike # (Auto) Eos # (Auto) Baso # (Auto) Seg Neutrophils % Seg Neuts % (Manual) Lymphocytes % (Manual) Seg Neutrophils # Seg Neutrophils # Man Lymphocytes # (Manual) D-Dimer ABG pH POC ABG pCO2 POC ABG pO2 ABG pO2 ABG HCO3 ABG O2 Saturation ABG Base Excess ABG Oxyhemoglobin ABG Sodium ABG Chloride ABG Glucose Oxyhemoglobin Carboxyhemoglobin Sodium Potassium Chloride Carbon Dioxide BUN Creatinine Glucose POC Glucose 140 H 252 H 214 H Hemoglobin A1c Magnesium Ferritin AST ALT Alkaline Phosphatase Lactate Dehydrogenase C-Reactive Protein Total Protein Albumin Arterial Blood Glucose Coronavirus (PCR) 04/21/21 04/22/21 04/22/21 21:42 08:37 12:01 WBC MCH MCHC RDW Lymph % (Auto) Pike % (Auto) Eos % (Auto) Lymph # (Auto) Pike # (Auto) Eos # (Auto) Baso # (Auto) Seg Neutrophils % Seg Neuts % (Manual) Lymphocytes % (Manual) Seg Neutrophils # Seg Neutrophils # Man Lymphocytes # (Manual) D-Dimer ABG pH 7.457 H POC ABG pCO2 POC ABG pO2 49.4 L ABG pO2 ABG HCO3 ABG O2 Saturation ABG Base Excess ABG Oxyhemoglobin 85.6 L ABG Sodium ABG Chloride ABG Glucose 121 H Oxyhemoglobin Carboxyhemoglobin 0.3 L Sodium Potassium Chloride Carbon Dioxide BUN Creatinine Glucose POC Glucose 162 H 227 H Hemoglobin A1c Magnesium Ferritin AST ALT Alkaline Phosphatase Lactate Dehydrogenase C-Reactive Protein Total Protein Albumin Arterial Blood Glucose 121 H Coronavirus (PCR) 04/22/21 04/22/21 04/23/21 16:26 22:23 04:52 WBC MCH MCHC RDW 15.7 H Lymph % (Auto) Pike % (Auto) Eos % (Auto) Lymph # (Auto) Pike # (Auto) Eos # (Auto) Baso # (Auto) Seg Neutrophils % Seg Neuts % (Manual) Lymphocytes % (Manual) Seg Neutrophils # Seg Neutrophils # Man Lymphocytes # (Manual) D-Dimer ABG pH POC ABG pCO2 POC ABG pO2 ABG pO2 ABG HCO3 ABG O2 Saturation ABG Base Excess ABG Oxyhemoglobin ABG Sodium ABG Chloride ABG Glucose Oxyhemoglobin Carboxyhemoglobin Sodium Potassium Chloride Carbon Dioxide BUN Creatinine Glucose POC Glucose 200 H 136 H Hemoglobin A1c Magnesium Ferritin AST ALT Alkaline Phosphatase Lactate Dehydrogenase C-Reactive Protein Total Protein Albumin Arterial Blood Glucose Coronavirus (PCR) 04/23/21 04/23/21 04/23/21 04:52 12:06 17:41 WBC MCH MCHC RDW Lymph % (Auto) Pike % (Auto) Eos % (Auto) Lymph # (Auto) Pike # (Auto) Eos # (Auto) Baso # (Auto) Seg Neutrophils % Seg Neuts % (Manual) Lymphocytes % (Manual) Seg Neutrophils # Seg Neutrophils # Man Lymphocytes # (Manual) D-Dimer ABG pH POC ABG pCO2 POC ABG pO2 ABG pO2 ABG HCO3 ABG O2 Saturation ABG Base Excess ABG Oxyhemoglobin ABG Sodium ABG Chloride ABG Glucose Oxyhemoglobin Carboxyhemoglobin Sodium 136 L Potassium Chloride 97.7 L Carbon Dioxide BUN 23 H Creatinine Glucose 101 H POC Glucose 202 H 169 H Hemoglobin A1c Magnesium Ferritin AST 46 H ALT Alkaline Phosphatase Lactate Dehydrogenase C-Reactive Protein Total Protein Albumin 3.3 L Arterial Blood Glucose Coronavirus (PCR) 04/23/21 04/24/21 04/24/21 23:08 05:17 08:38 WBC MCH MCHC RDW Lymph % (Auto) Pike % (Auto) Eos % (Auto) Lymph # (Auto) Pike # (Auto) Eos # (Auto) Baso # (Auto) Seg Neutrophils % Seg Neuts % (Manual) Lymphocytes % (Manual) Seg Neutrophils # Seg Neutrophils # Man Lymphocytes # (Manual) D-Dimer ABG pH POC ABG pCO2 POC ABG pO2 ABG pO2 ABG HCO3 ABG O2 Saturation ABG Base Excess ABG Oxyhemoglobin ABG Sodium ABG Chloride ABG Glucose Oxyhemoglobin Carboxyhemoglobin Sodium Potassium Chloride Carbon Dioxide BUN Creatinine Glucose POC Glucose 111 H 108 H 126 H Hemoglobin A1c Magnesium Ferritin AST ALT Alkaline Phosphatase Lactate Dehydrogenase C-Reactive Protein Total Protein Albumin Arterial Blood Glucose Coronavirus (PCR) 04/24/21 04/24/21 04/24/21 11:54 17:57 21:23 WBC MCH MCHC RDW Lymph % (Auto) Pike % (Auto) Eos % (Auto) Lymph # (Auto) Pike # (Auto) Eos # (Auto) Baso # (Auto) Seg Neutrophils % Seg Neuts % (Manual) Lymphocytes % (Manual) Seg Neutrophils # Seg Neutrophils # Man Lymphocytes # (Manual) D-Dimer ABG pH POC ABG pCO2 POC ABG pO2 ABG pO2 ABG HCO3 ABG O2 Saturation ABG Base Excess ABG Oxyhemoglobin ABG Sodium ABG Chloride ABG Glucose Oxyhemoglobin Carboxyhemoglobin Sodium Potassium Chloride Carbon Dioxide BUN Creatinine Glucose POC Glucose 147 H 177 H 138 H Hemoglobin A1c Magnesium Ferritin AST ALT Alkaline Phosphatase Lactate Dehydrogenase C-Reactive Protein Total Protein Albumin Arterial Blood Glucose Coronavirus (PCR) 04/25/21 04/25/21 04/25/21 07:06 11:23 15:43 WBC MCH MCHC RDW Lymph % (Auto) Pike % (Auto) Eos % (Auto) Lymph # (Auto) Pike # (Auto) Eos # (Auto) Baso # (Auto) Seg Neutrophils % Seg Neuts % (Manual) Lymphocytes % (Manual) Seg Neutrophils # Seg Neutrophils # Man Lymphocytes # (Manual) D-Dimer ABG pH POC ABG pCO2 POC ABG pO2 ABG pO2 ABG HCO3 ABG O2 Saturation ABG Base Excess ABG Oxyhemoglobin ABG Sodium ABG Chloride ABG Glucose Oxyhemoglobin Carboxyhemoglobin Sodium Potassium Chloride Carbon Dioxide BUN Creatinine Glucose POC Glucose 147 H 169 H 227 H Hemoglobin A1c Magnesium Ferritin AST ALT Alkaline Phosphatase Lactate Dehydrogenase C-Reactive Protein Total Protein Albumin Arterial Blood Glucose Coronavirus (PCR) 04/25/21 04/26/21 04/26/21 21:22 02:45 05:15 WBC MCH MCHC RDW Lymph % (Auto) Pike % (Auto) Eos % (Auto) Lymph # (Auto) Pike # (Auto) Eos # (Auto) Baso # (Auto) Seg Neutrophils % Seg Neuts % (Manual) Lymphocytes % (Manual) Seg Neutrophils # Seg Neutrophils # Man Lymphocytes # (Manual) D-Dimer ABG pH POC ABG pCO2 POC ABG pO2 70.7 L ABG pO2 ABG HCO3 ABG O2 Saturation ABG Base Excess ABG Oxyhemoglobin 93.0 L ABG Sodium 132.7 L ABG Chloride ABG Glucose 115 H Oxyhemoglobin Carboxyhemoglobin Sodium Potassium Chloride 95.8 L Carbon Dioxide 32 H BUN 20 H Creatinine Glucose 102 H POC Glucose 196 H Hemoglobin A1c Magnesium Ferritin AST ALT Alkaline Phosphatase Lactate Dehydrogenase C-Reactive Protein Total Protein Albumin Arterial Blood Glucose 115 H Coronavirus (PCR) 04/26/21 04/26/21 04/26/21 11:49 16:09 21:07 WBC MCH MCHC RDW Lymph % (Auto) Pike % (Auto) Eos % (Auto) Lymph # (Auto) Pike # (Auto) Eos # (Auto) Baso # (Auto) Seg Neutrophils % Seg Neuts % (Manual) Lymphocytes % (Manual) Seg Neutrophils # Seg Neutrophils # Man Lymphocytes # (Manual) D-Dimer ABG pH POC ABG pCO2 POC ABG pO2 ABG pO2 ABG HCO3 ABG O2 Saturation ABG Base Excess ABG Oxyhemoglobin ABG Sodium ABG Chloride ABG Glucose Oxyhemoglobin Carboxyhemoglobin Sodium Potassium Chloride Carbon Dioxide BUN Creatinine Glucose POC Glucose 114 H 188 H 136 H Hemoglobin A1c Magnesium Ferritin AST ALT Alkaline Phosphatase Lactate Dehydrogenase C-Reactive Protein Total Protein Albumin Arterial Blood Glucose Coronavirus (PCR) 04/27/21 04/27/21 04/28/21 17:34 22:12 08:26 WBC MCH MCHC RDW Lymph % (Auto) [place] % (Auto) Eos % (Auto) Lymph # (Auto) [place] # (Auto) Eos # (Auto) Baso # (Auto) Seg Neutrophils % Seg Neuts % (Manual) Lymphocytes % (Manual) Seg Neutrophils # Seg Neutrophils # Man Lymphocytes # (Manual) D-Dimer ABG pH POC ABG pCO2 POC ABG pO2 ABG pO2 ABG HCO3 ABG O2 Saturation ABG Base Excess ABG Oxyhemoglobin ABG Sodium ABG Chloride ABG Glucose Oxyhemoglobin Carboxyhemoglobin Sodium Potassium Chloride Carbon Dioxide BUN Creatinine Glucose POC Glucose 128 H 159 H 69 L Hemoglobin A1c Magnesium Ferritin AST ALT Alkaline Phosphatase Lactate Dehydrogenase C-Reactive Protein Total Protein Albumin Arterial Blood Glucose Coronavirus (PCR) 04/28/21 04/28/21 04/29/21 12:22 21:11 06:05 WBC MCH MCHC RDW Lymph % (Auto) [place] % (Auto) Eos % (Auto) Lymph # (Auto) [place] # (Auto) Eos # (Auto) Baso # (Auto) Seg Neutrophils % Seg Neuts % (Manual) Lymphocytes % (Manual) Seg Neutrophils # Seg Neutrophils # Man Lymphocytes # (Manual) D-Dimer ABG pH POC ABG pCO2 POC ABG pO2 ABG pO2 ABG HCO3 ABG O2 Saturation ABG Base Excess ABG Oxyhemoglobin ABG Sodium ABG Chloride ABG Glucose Oxyhemoglobin Carboxyhemoglobin Sodium 132 L Potassium Chloride 94.4 L Carbon Dioxide BUN Creatinine 0.2 L D Glucose 140 H POC Glucose 141 H 171 H Hemoglobin A1c Magnesium Ferritin AST ALT Alkaline Phosphatase Lactate Dehydrogenase C-Reactive Protein Total Protein Albumin Arterial Blood Glucose Coronavirus (PCR) 04/29/21 04/29/21 04/29/21 06:05 07:24 11:36 WBC MCH MCHC 35 H RDW 15.9 H Lymph % (Auto) [place] % (Auto) Eos % (Auto) Lymph # (Auto) [place] # (Auto) Eos # (Auto) Baso # (Auto) Seg Neutrophils % Seg Neuts % (Manual) Lymphocytes % (Manual) Seg Neutrophils # Seg Neutrophils # Man Lymphocytes # (Manual) D-Dimer ABG pH POC ABG pCO2 POC ABG pO2 ABG pO2 ABG HCO3 ABG O2 Saturation ABG Base Excess ABG Oxyhemoglobin ABG Sodium ABG Chloride ABG Glucose Oxyhemoglobin Carboxyhemoglobin Sodium Potassium Chloride Carbon Dioxide BUN Creatinine Glucose POC Glucose 141 H 220 H Hemoglobin A1c Magnesium Ferritin AST ALT Alkaline Phosphatase Lactate Dehydrogenase C-Reactive Protein Total Protein Albumin Arterial Blood Glucose Coronavirus (PCR) 04/29/21 04/29/21 04/29/21 14:23 15:30 17:06 WBC MCH MCHC RDW Lymph % (Auto) [place] % (Auto) Eos % (Auto) Lymph # (Auto) [place] # (Auto) Eos # (Auto) Baso # (Auto) Seg Neutrophils % Seg Neuts % (Manual) Lymphocytes % (Manual) Seg Neutrophils # Seg Neutrophils # Man Lymphocytes # (Manual) D-Dimer ABG pH POC ABG pCO2 POC ABG pO2 ABG pO2 52.6 L ABG HCO3 ABG O2 Saturation 86.4 L ABG Base Excess ABG Oxyhemoglobin ABG Sodium ABG Chloride ABG Glucose Oxyhemoglobin 84.6 L Carboxyhemoglobin Sodium Potassium Chloride Carbon Dioxide BUN Creatinine Glucose POC Glucose 173 H 158 H Hemoglobin A1c Magnesium Ferritin AST ALT Alkaline Phosphatase Lactate Dehydrogenase C-Reactive Protein Total Protein Albumin Arterial Blood Glucose Coronavirus (PCR) 04/29/21 04/30/21 04/30/21 21:27 07:16 08:00 WBC MCH MCHC RDW 16.1 H Lymph % (Auto) [place] % (Auto) Eos % (Auto) Lymph # (Auto) [place] # (Auto) Eos # (Auto) Baso # (Auto) Seg Neutrophils % Seg Neuts % (Manual) Lymphocytes % (Manual) Seg Neutrophils # Seg Neutrophils # Man Lymphocytes # (Manual) D-Dimer ABG pH POC ABG pCO2 POC ABG pO2 ABG pO2 ABG HCO3 ABG O2 Saturation ABG Base Excess ABG Oxyhemoglobin ABG Sodium ABG Chloride ABG Glucose Oxyhemoglobin Carboxyhemoglobin Sodium Potassium Chloride Carbon Dioxide BUN Creatinine Glucose POC Glucose 244 H 175 H Hemoglobin A1c Magnesium Ferritin AST ALT Alkaline Phosphatase Lactate Dehydrogenase C-Reactive Protein Total Protein Albumin Arterial Blood Glucose Coronavirus (PCR) 04/30/21 04/30/21 04/30/21 08:00 08:00 11:03 WBC MCH MCHC RDW Lymph % (Auto) [place] % (Auto) Eos % (Auto) Lymph # (Auto) [place] # (Auto) Eos # (Auto) Baso # (Auto) Seg Neutrophils % Seg Neuts % (Manual) Lymphocytes % (Manual) Seg Neutrophils # Seg Neutrophils # Man Lymphocytes # (Manual) D-Dimer 1796.87 H ABG pH POC ABG pCO2 POC ABG pO2 ABG pO2 ABG HCO3 ABG O2 Saturation ABG Base Excess ABG Oxyhemoglobin ABG Sodium ABG Chloride ABG Glucose Oxyhemoglobin Carboxyhemoglobin Sodium 135 L Potassium Chloride 96.3 L Carbon Dioxide BUN Creatinine 0.2 L Glucose 153 H POC Glucose 183 H Hemoglobin A1c Magnesium Ferritin AST 41 H ALT 76 H Alkaline Phosphatase 160 H Lactate Dehydrogenase 522 H C-Reactive Protein Total Protein 6.1 L Albumin 3.1 L Arterial Blood Glucose Coronavirus (PCR) 04/30/21 04/30/21 05/01/21 17:04 22:17 05:39 WBC MCH MCHC RDW Lymph % (Auto) [place] % (Auto) Eos % (Auto) Lymph # (Auto) [place] # (Auto) Eos # (Auto) Baso # (Auto) Seg Neutrophils % Seg Neuts % (Manual) Lymphocytes % (Manual) Seg Neutrophils # Seg Neutrophils # Man Lymphocytes # (Manual) D-Dimer ABG pH POC ABG pCO2 POC ABG pO2 ABG pO2 ABG HCO3 ABG O2 Saturation ABG Base Excess ABG Oxyhemoglobin ABG Sodium ABG Chloride ABG Glucose Oxyhemoglobin Carboxyhemoglobin Sodium 133 L Potassium Chloride 92.1 L Carbon Dioxide BUN 24 H Creatinine 0.4 L D Glucose 269 H POC Glucose 167 H 208 H Hemoglobin A1c Magnesium Ferritin AST ALT 66 H Alkaline Phosphatase 142 H Lactate Dehydrogenase C-Reactive Protein Total Protein Albumin 3.2 L Arterial Blood Glucose Coronavirus (PCR) 05/01/21 05/01/21 05/01/21 05:39 05:39 07:45 WBC MCH MCHC RDW 16.0 H Lymph % (Auto) [place] % (Auto) Eos % (Auto) Lymph # (Auto) [place] # (Auto) Eos # (Auto) Baso # (Auto) Seg Neutrophils % Seg Neuts % (Manual) Lymphocytes % (Manual) Seg Neutrophils # Seg Neutrophils # Man Lymphocytes # (Manual) D-Dimer 3984.95 H ABG pH POC ABG pCO2 POC ABG pO2 ABG pO2 ABG HCO3 ABG O2 Saturation ABG Base Excess ABG Oxyhemoglobin ABG Sodium ABG Chloride ABG Glucose Oxyhemoglobin Carboxyhemoglobin Sodium Potassium Chloride Carbon Dioxide BUN Creatinine Glucose POC Glucose 229 H Hemoglobin A1c Magnesium Ferritin AST ALT Alkaline Phosphatase Lactate Dehydrogenase C-Reactive Protein Total Protein Albumin Arterial Blood Glucose Coronavirus (PCR) 05/01/21 05/01/21 05/01/21 12:10 15:46 21:06 WBC MCH MCHC RDW Lymph % (Auto) [place] % (Auto) Eos % (Auto) Lymph # (Auto) [place] # (Auto) Eos # (Auto) Baso # (Auto) Seg Neutrophils % Seg Neuts % (Manual) Lymphocytes % (Manual) Seg Neutrophils # Seg Neutrophils # Man Lymphocytes # (Manual) D-Dimer ABG pH POC ABG pCO2 POC ABG pO2 ABG pO2 ABG HCO3 ABG O2 Saturation ABG Base Excess ABG Oxyhemoglobin ABG Sodium ABG Chloride ABG Glucose Oxyhemoglobin Carboxyhemoglobin Sodium Potassium Chloride Carbon Dioxide BUN Creatinine Glucose POC Glucose 296 H 279 H 232 H Hemoglobin A1c Magnesium Ferritin AST ALT Alkaline Phosphatase Lactate Dehydrogenase C-Reactive Protein Total Protein Albumin Arterial Blood Glucose Coronavirus (PCR) 05/02/21 05/02/21 05/02/21 04:55 04:55 04:55 WBC MCH MCHC RDW 16.1 H Lymph % (Auto) [place] % (Auto) Eos % (Auto) Lymph # (Auto) [place] # (Auto) Eos # (Auto) Baso # (Auto) Seg Neutrophils % Seg Neuts % (Manual) Lymphocytes % (Manual) Seg Neutrophils # Seg Neutrophils # Man Lymphocytes # (Manual) D-Dimer 1401.08 H ABG pH POC ABG pCO2 POC ABG pO2 ABG pO2 ABG HCO3 ABG O2 Saturation ABG Base Excess ABG Oxyhemoglobin ABG Sodium ABG Chloride ABG Glucose Oxyhemoglobin Carboxyhemoglobin Sodium 131 L Potassium Chloride 95.5 L Carbon Dioxide BUN 20 H Creatinine 0.3 L Glucose 288 H POC Glucose Hemoglobin A1c Magnesium Ferritin AST ALT Alkaline Phosphatase Lactate Dehydrogenase C-Reactive Protein Total Protein 6.0 L Albumin 3.1 L Arterial Blood Glucose Coronavirus (PCR) 05/02/21 05/02/21 05/02/21 07:53 11:45 15:25 WBC MCH MCHC RDW Lymph % (Auto) [place] % (Auto) Eos % (Auto) Lymph # (Auto) [place] # (Auto) Eos # (Auto) Baso # (Auto) Seg Neutrophils % Seg Neuts % (Manual) Lymphocytes % (Manual) Seg Neutrophils # Seg Neutrophils # Man Lymphocytes # (Manual) D-Dimer ABG pH POC ABG pCO2 POC ABG pO2 ABG pO2 ABG HCO3 ABG O2 Saturation ABG Base Excess ABG Oxyhemoglobin ABG Sodium ABG Chloride ABG Glucose Oxyhemoglobin Carboxyhemoglobin Sodium Potassium Chloride Carbon Dioxide BUN Creatinine Glucose POC Glucose 180 H 228 H 275 H Hemoglobin A1c Magnesium Ferritin AST ALT Alkaline Phosphatase Lactate Dehydrogenase C-Reactive Protein Total Protein Albumin Arterial Blood Glucose Coronavirus (PCR) 05/02/21 05/03/21 05/03/21 22:56 04:30 04:49 WBC MCH MCHC RDW Lymph % (Auto) [place] % (Auto) Eos % (Auto) Lymph # (Auto) [place] # (Auto) Eos # (Auto) Baso # (Auto) Seg Neutrophils % Seg Neuts % (Manual) Lymphocytes % (Manual) Seg Neutrophils # Seg Neutrophils # Man Lymphocytes # (Manual) D-Dimer ABG pH 7.229 L POC ABG pCO2 POC ABG pO2 65.3 L ABG pO2 ABG HCO3 ABG O2 Saturation ABG Base Excess ABG Oxyhemoglobin 87.8 L ABG Sodium 133.0 L ABG Chloride 97.0 L ABG Glucose 403 H Oxyhemoglobin Carboxyhemoglobin Sodium 130 L Potassium Chloride 94.9 L Carbon Dioxide BUN 20 H Creatinine 0.5 L D Glucose 359 H POC Glucose 293 H Hemoglobin A1c Magnesium Ferritin AST 54 H ALT 75 H Alkaline Phosphatase 138 H Lactate Dehydrogenase C-Reactive Protein Total Protein Albumin 3.6 L Arterial Blood Glucose 403 H Coronavirus (PCR) 05/03/21 05/03/21 05/03/21 05:27 11:26 17:57 WBC MCH MCHC RDW Lymph % (Auto) [place] % (Auto) Eos % (Auto) Lymph # (Auto) [place] # (Auto) Eos # (Auto) Baso # (Auto) Seg Neutrophils % Seg Neuts % (Manual) Lymphocytes % (Manual) Seg Neutrophils # Seg Neutrophils # Man Lymphocytes # (Manual) D-Dimer ABG pH POC ABG pCO2 POC ABG pO2 ABG pO2 ABG HCO3 ABG O2 Saturation ABG Base Excess ABG Oxyhemoglobin ABG Sodium ABG Chloride ABG Glucose Oxyhemoglobin Carboxyhemoglobin Sodium Potassium Chloride Carbon Dioxide BUN Creatinine Glucose POC Glucose 361 H 297 H 226 H Hemoglobin A1c Magnesium Ferritin AST ALT Alkaline Phosphatase Lactate Dehydrogenase C-Reactive Protein Total Protein Albumin Arterial Blood Glucose Coronavirus (PCR) 05/03/21 05/04/21 05/04/21 23:12 05:12 07:30 WBC MCH MCHC RDW Lymph % (Auto) [place] % (Auto) Eos % (Auto) Lymph # (Auto) [place] # (Auto) Eos # (Auto) Baso # (Auto) Seg Neutrophils % Seg Neuts % (Manual) Lymphocytes % (Manual) Seg Neutrophils # Seg Neutrophils # Man Lymphocytes # (Manual) D-Dimer ABG pH POC ABG pCO2 POC ABG pO2 ABG pO2 ABG HCO3 ABG O2 Saturation ABG Base Excess ABG Oxyhemoglobin ABG Sodium ABG Chloride ABG Glucose Oxyhemoglobin Carboxyhemoglobin Sodium Potassium Chloride Carbon Dioxide BUN Creatinine Glucose POC Glucose 282 H 285 H 254 H Hemoglobin A1c Magnesium Ferritin AST ALT Alkaline Phosphatase Lactate Dehydrogenase C-Reactive Protein Total Protein Albumin Arterial Blood Glucose Coronavirus (PCR) 05/04/21 05/04/21 05/04/21 08:58 11:45 16:07 WBC MCH MCHC RDW Lymph % (Auto) [place] % (Auto) Eos % (Auto) Lymph # (Auto) [place] # (Auto) Eos # (Auto) Baso # (Auto) Seg Neutrophils % Seg Neuts % (Manual) Lymphocytes % (Manual) Seg Neutrophils # Seg Neutrophils # Man Lymphocytes # (Manual) D-Dimer ABG pH POC ABG pCO2 POC ABG pO2 ABG pO2 ABG HCO3 ABG O2 Saturation ABG Base Excess ABG Oxyhemoglobin ABG Sodium ABG Chloride ABG Glucose Oxyhemoglobin Carboxyhemoglobin Sodium 134 L Potassium Chloride Carbon Dioxide BUN 20 H Creatinine 0.3 L Glucose 267 H POC Glucose 244 H 297 H Hemoglobin A1c Magnesium Ferritin AST ALT Alkaline Phosphatase Lactate Dehydrogenase C-Reactive Protein Total Protein 6.0 L Albumin 3.2 L Arterial Blood Glucose Coronavirus (PCR) 05/04/21 05/05/21 05/05/21 23:32 05:00 05:13 WBC MCH MCHC RDW Lymph % (Auto) [place] % (Auto) Eos % (Auto) Lymph # (Auto) [place] # (Auto) Eos # (Auto) Baso # (Auto) Seg Neutrophils % Seg Neuts % (Manual) Lymphocytes % (Manual) Seg Neutrophils # Seg Neutrophils # Man Lymphocytes # (Manual) D-Dimer ABG pH POC ABG pCO2 POC ABG pO2 ABG pO2 ABG HCO3 ABG O2 Saturation ABG Base Excess ABG Oxyhemoglobin ABG Sodium ABG Chloride ABG Glucose Oxyhemoglobin Carboxyhemoglobin Sodium 132 L Potassium Chloride 96.4 L Carbon Dioxide BUN 22 H Creatinine 0.3 L Glucose 228 H POC Glucose 154 H 260 H Hemoglobin A1c Magnesium Ferritin AST ALT 67 H Alkaline Phosphatase Lactate Dehydrogenase C-Reactive Protein Total Protein 6.1 L Albumin 3.2 L Arterial Blood Glucose Coronavirus (PCR) 05/05/21 05/05/21 05/05/21 11:32 17:49 23:07 WBC MCH MCHC RDW Lymph % (Auto) [place] % (Auto) Eos % (Auto) Lymph # (Auto) [place] # (Auto) Eos # (Auto) Baso # (Auto) Seg Neutrophils % Seg Neuts % (Manual) Lymphocytes % (Manual) Seg Neutrophils # Seg Neutrophils # Man Lymphocytes # (Manual) D-Dimer ABG pH POC ABG pCO2 POC ABG pO2 ABG pO2 ABG HCO3 ABG O2 Saturation ABG Base Excess ABG Oxyhemoglobin ABG Sodium ABG Chloride ABG Glucose Oxyhemoglobin Carboxyhemoglobin Sodium Potassium Chloride Carbon Dioxide BUN Creatinine Glucose POC Glucose 279 H 308 H 213 H Hemoglobin A1c Magnesium Ferritin AST ALT Alkaline Phosphatase Lactate Dehydrogenase C-Reactive Protein Total Protein Albumin Arterial Blood Glucose Coronavirus (PCR) 05/06/21 05/06/21 05/06/21 05:00 05:00 05:20 WBC MCH MCHC RDW 16.8 H Lymph % (Auto) [place] % (Auto) Eos % (Auto) Lymph # (Auto) [place] # (Auto) Eos # (Auto) Baso # (Auto) Seg Neutrophils % Seg Neuts % (Manual) 99.0 H Lymphocytes % (Manual) Seg Neutrophils # Seg Neutrophils # Man 10.9 H Lymphocytes # (Manual) 0.0 L D-Dimer ABG pH POC ABG pCO2 POC ABG pO2 ABG pO2 ABG HCO3 ABG O2 Saturation ABG Base Excess ABG Oxyhemoglobin ABG Sodium ABG Chloride ABG Glucose Oxyhemoglobin Carboxyhemoglobin Sodium 133 L Potassium Chloride Carbon Dioxide BUN 21 H Creatinine 0.3 L Glucose 259 H POC Glucose 308 H Hemoglobin A1c Magnesium Ferritin AST ALT Alkaline Phosphatase Lactate Dehydrogenase C-Reactive Protein Total Protein Albumin 3.2 L Arterial Blood Glucose Coronavirus (PCR) 05/06/21 05/06/21 05/06/21 11:24 17:54 21:32 WBC MCH MCHC RDW Lymph % (Auto) [place] % (Auto) Eos % (Auto) Lymph # (Auto) [place] # (Auto) Eos # (Auto) Baso # (Auto) Seg Neutrophils % Seg Neuts % (Manual) Lymphocytes % (Manual) Seg Neutrophils # Seg Neutrophils # Man Lymphocytes # (Manual) D-Dimer ABG pH POC ABG pCO2 POC ABG pO2 ABG pO2 ABG HCO3 ABG O2 Saturation ABG Base Excess ABG Oxyhemoglobin ABG Sodium ABG Chloride ABG Glucose Oxyhemoglobin Carboxyhemoglobin Sodium Potassium Chloride Carbon Dioxide BUN Creatinine Glucose POC Glucose 262 H 124 H 246 H Hemoglobin A1c Magnesium Ferritin AST ALT Alkaline Phosphatase Lactate Dehydrogenase C-Reactive Protein Total Protein Albumin Arterial Blood Glucose Coronavirus (PCR) 05/06/21 05/07/21 05/07/21 23:10 04:54 04:54 WBC MCH MCHC RDW Lymph % (Auto) [place] % (Auto) Eos % (Auto) Lymph # (Auto) [place] # (Auto) Eos # (Auto) Baso # (Auto) Seg Neutrophils % Seg Neuts % (Manual) Lymphocytes % (Manual) Seg Neutrophils # Seg Neutrophils # Man Lymphocytes # (Manual) D-Dimer 1609.28 H ABG pH POC ABG pCO2 POC ABG pO2 ABG pO2 ABG HCO3 ABG O2 Saturation ABG Base Excess ABG Oxyhemoglobin ABG Sodium ABG Chloride ABG Glucose Oxyhemoglobin Carboxyhemoglobin Sodium 136 L Potassium Chloride Carbon Dioxide BUN 23 H Creatinine 0.3 L Glucose 110 H POC Glucose 249 H Hemoglobin A1c Magnesium Ferritin AST ALT Alkaline Phosphatase Lactate Dehydrogenase C-Reactive Protein Total Protein 6.2 L Albumin 3.0 L Arterial Blood Glucose Coronavirus (PCR) 05/07/21 05/07/21 05/07/21 04:54 04:54 11:41 WBC MCH MCHC RDW Lymph % (Auto) [place] % (Auto) Eos % (Auto) Lymph # (Auto) [place] # (Auto) Eos # (Auto) Baso # (Auto) Seg Neutrophils % Seg Neuts % (Manual) Lymphocytes % (Manual) Seg Neutrophils # Seg Neutrophils # Man Lymphocytes # (Manual) D-Dimer ABG pH POC ABG pCO2 POC ABG pO2 ABG pO2 ABG HCO3 ABG O2 Saturation ABG Base Excess ABG Oxyhemoglobin ABG Sodium ABG Chloride ABG Glucose Oxyhemoglobin Carboxyhemoglobin Sodium Potassium Chloride Carbon Dioxide BUN Creatinine Glucose POC Glucose 118 H Hemoglobin A1c Magnesium Ferritin 296.1 H AST ALT Alkaline Phosphatase Lactate Dehydrogenase 724 H C-Reactive Protein Total Protein Albumin Arterial Blood Glucose Coronavirus (PCR) 05/07/21 05/07/21 05/08/21 16:43 22:34 06:44 WBC MCH MCHC RDW Lymph % (Auto) [place] % (Auto) Eos % (Auto) Lymph # (Auto) [place] # (Auto) Eos # (Auto) Baso # (Auto) Seg Neutrophils % Seg Neuts % (Manual) Lymphocytes % (Manual) Seg Neutrophils # Seg Neutrophils # Man Lymphocytes # (Manual) D-Dimer ABG pH POC ABG pCO2 POC ABG pO2 ABG pO2 ABG HCO3 ABG O2 Saturation ABG Base Excess ABG Oxyhemoglobin ABG Sodium ABG Chloride ABG Glucose Oxyhemoglobin Carboxyhemoglobin Sodium Potassium Chloride Carbon Dioxide BUN Creatinine Glucose POC Glucose 159 H 233 H 235 H Hemoglobin A1c Magnesium Ferritin AST ALT Alkaline Phosphatase Lactate Dehydrogenase C-Reactive Protein Total Protein Albumin Arterial Blood Glucose Coronavirus (PCR) 05/08/21 05/08/21 05/08/21 07:49 11:56 17:13 WBC MCH MCHC RDW Lymph % (Auto) [place] % (Auto) Eos % (Auto) Lymph # (Auto) [place] # (Auto) Eos # (Auto) Baso # (Auto) Seg Neutrophils % Seg Neuts % (Manual) Lymphocytes % (Manual) Seg Neutrophils # Seg Neutrophils # Man Lymphocytes # (Manual) D-Dimer ABG pH POC ABG pCO2 POC ABG pO2 ABG pO2 ABG HCO3 ABG O2 Saturation ABG Base Excess ABG Oxyhemoglobin ABG Sodium ABG Chloride ABG Glucose Oxyhemoglobin Carboxyhemoglobin Sodium Potassium Chloride Carbon Dioxide BUN Creatinine Glucose POC Glucose 219 H 184 H 182 H Hemoglobin A1c Magnesium Ferritin AST ALT Alkaline Phosphatase Lactate Dehydrogenase C-Reactive Protein Total Protein Albumin Arterial Blood Glucose Coronavirus (PCR) 05/08/21 05/09/21 05/09/21 23:35 05:20 05:20 WBC MCH MCHC RDW Lymph % (Auto) [place] % (Auto) Eos % (Auto) Lymph # (Auto) [place] # (Auto) Eos # (Auto) Baso # (Auto) Seg Neutrophils % Seg Neuts % (Manual) Lymphocytes % (Manual) Seg Neutrophils # Seg Neutrophils # Man Lymphocytes # (Manual) D-Dimer 1003.87 H ABG pH POC ABG pCO2 POC ABG pO2 ABG pO2 ABG HCO3 ABG O2 Saturation ABG Base Excess ABG Oxyhemoglobin ABG Sodium ABG Chloride ABG Glucose Oxyhemoglobin Carboxyhemoglobin Sodium Potassium Chloride Carbon Dioxide BUN Creatinine Glucose POC Glucose 198 H Hemoglobin A1c Magnesium Ferritin 378.7 H AST ALT Alkaline Phosphatase Lactate Dehydrogenase C-Reactive Protein Total Protein Albumin Arterial Blood Glucose Coronavirus (PCR) 05/09/21 05/09/21 05/09/21 05:20 06:04 12:53 WBC MCH MCHC RDW Lymph % (Auto) [place] % (Auto) Eos % (Auto) Lymph # (Auto) [place] # (Auto) Eos # (Auto) Baso # (Auto) Seg Neutrophils % Seg Neuts % (Manual) Lymphocytes % (Manual) Seg Neutrophils # Seg Neutrophils # Man Lymphocytes # (Manual) D-Dimer ABG pH POC ABG pCO2 POC ABG pO2 ABG pO2 ABG HCO3 ABG O2 Saturation ABG Base Excess ABG Oxyhemoglobin ABG Sodium ABG Chloride ABG Glucose Oxyhemoglobin Carboxyhemoglobin Sodium Potassium Chloride Carbon Dioxide BUN Creatinine Glucose POC Glucose 159 H 180 H Hemoglobin A1c Magnesium Ferritin AST ALT Alkaline Phosphatase Lactate Dehydrogenase 558 H C-Reactive Protein 2.40 H Total Protein Albumin Arterial Blood Glucose Coronavirus (PCR) 05/09/21 05/09/21 05/10/21 16:43 21:27 10:18 WBC MCH MCHC RDW Lymph % (Auto) [place] % (Auto) Eos % (Auto) Lymph # (Auto) [place] # (Auto) Eos # (Auto) Baso # (Auto) Seg Neutrophils % Seg Neuts % (Manual) Lymphocytes % (Manual) Seg Neutrophils # Seg Neutrophils # Man Lymphocytes # (Manual) D-Dimer ABG pH POC ABG pCO2 POC ABG pO2 ABG pO2 ABG HCO3 ABG O2 Saturation ABG Base Excess ABG Oxyhemoglobin ABG Sodium ABG Chloride ABG Glucose Oxyhemoglobin Carboxyhemoglobin Sodium Potassium Chloride Carbon Dioxide BUN Creatinine Glucose POC Glucose 212 H 285 H 261 H Hemoglobin A1c Magnesium Ferritin AST ALT Alkaline Phosphatase Lactate Dehydrogenase C-Reactive Protein Total Protein Albumin Arterial Blood Glucose Coronavirus (PCR) 05/10/21 05/10/21 05/11/21 17:58 18:02 00:29 WBC MCH MCHC RDW Lymph % (Auto) [place] % (Auto) Eos % (Auto) Lymph # (Auto) [place] # (Auto) Eos # (Auto) Baso # (Auto) Seg Neutrophils % Seg Neuts % (Manual) Lymphocytes % (Manual) Seg Neutrophils # Seg Neutrophils # Man Lymphocytes # (Manual) D-Dimer ABG pH POC ABG pCO2 POC ABG pO2 ABG pO2 ABG HCO3 ABG O2 Saturation ABG Base Excess ABG Oxyhemoglobin ABG Sodium ABG Chloride ABG Glucose Oxyhemoglobin Carboxyhemoglobin Sodium Potassium Chloride Carbon Dioxide BUN Creatinine Glucose POC Glucose 213 H 179 H 149 H Hemoglobin A1c Magnesium Ferritin AST ALT Alkaline Phosphatase Lactate Dehydrogenase C-Reactive Protein Total Protein Albumin Arterial Blood Glucose Coronavirus (PCR) 05/11/21 05/11/21 05/11/21 05:22 11:32 17:00 WBC 14.9 H MCH MCHC RDW 18.9 H Lymph % (Auto) 4.9 L [place] % (Auto) Eos % (Auto) Lymph # (Auto) 0.7 L [place] # (Auto) Eos # (Auto) Baso # (Auto) 0.2 H Seg Neutrophils % Seg Neuts % (Manual) Lymphocytes % (Manual) Seg Neutrophils # 13.3 H Seg Neutrophils # Man Lymphocytes # (Manual) D-Dimer ABG pH POC ABG pCO2 POC ABG pO2 ABG pO2 ABG HCO3 ABG O2 Saturation ABG Base Excess ABG Oxyhemoglobin ABG Sodium ABG Chloride ABG Glucose Oxyhemoglobin Carboxyhemoglobin Sodium Potassium Chloride Carbon Dioxide BUN Creatinine Glucose POC Glucose 162 H 179 H Hemoglobin A1c Magnesium Ferritin AST ALT Alkaline Phosphatase Lactate Dehydrogenase C-Reactive Protein Total Protein Albumin Arterial Blood Glucose Coronavirus (PCR) 05/11/21 05/11/21 05/11/21 17:00 17:33 22:03 WBC MCH MCHC RDW Lymph % (Auto) [place] % (Auto) Eos % (Auto) Lymph # (Auto) [place] # (Auto) Eos # (Auto) Baso # (Auto) Seg Neutrophils % Seg Neuts % (Manual) Lymphocytes % (Manual) Seg Neutrophils # Seg Neutrophils # Man Lymphocytes # (Manual) D-Dimer ABG pH POC ABG pCO2 POC ABG pO2 ABG pO2 ABG HCO3 ABG O2 Saturation ABG Base Excess ABG Oxyhemoglobin ABG Sodium ABG Chloride ABG Glucose Oxyhemoglobin Carboxyhemoglobin Sodium 135 L Potassium Chloride 97.3 L Carbon Dioxide BUN 21 H Creatinine 0.3 L Glucose 133 H POC Glucose 140 H 282 H Hemoglobin A1c Magnesium Ferritin AST ALT 60 H Alkaline Phosphatase Lactate Dehydrogenase C-Reactive Protein Total Protein Albumin 3.1 L Arterial Blood Glucose Coronavirus (PCR) 05/12/21 05/12/21 05/12/21 04:05 04:05 04:05 WBC MCH MCHC RDW 18.4 H Lymph % (Auto) [place] % (Auto) Eos % (Auto) Lymph # (Auto) [place] # (Auto) Eos # (Auto) Baso # (Auto) Seg Neutrophils % Seg Neuts % (Manual) 94.0 H Lymphocytes % (Manual) 4.0 L Seg Neutrophils # Seg Neutrophils # Man Lymphocytes # (Manual) 0.3 L D-Dimer ABG pH POC ABG pCO2 POC ABG pO2 ABG pO2 ABG HCO3 ABG O2 Saturation ABG Base Excess ABG Oxyhemoglobin ABG Sodium ABG Chloride ABG Glucose Oxyhemoglobin Carboxyhemoglobin Sodium 136 L Potassium Chloride Carbon Dioxide BUN 18 H Creatinine 0.2 L Glucose 142 H POC Glucose Hemoglobin A1c Magnesium Ferritin 350.7 H AST ALT Alkaline Phosphatase Lactate Dehydrogenase 546 H C-Reactive Protein Total Protein 6.1 L Albumin 3.0 L Arterial Blood Glucose Coronavirus (PCR) 05/12/21 05/12/21 05/12/21 05:11 11:17 16:27 WBC MCH MCHC RDW Lymph % (Auto) [place] % (Auto) Eos % (Auto) Lymph # (Auto) [place] # (Auto) Eos # (Auto) Baso # (Auto) Seg Neutrophils % Seg Neuts % (Manual) Lymphocytes % (Manual) Seg Neutrophils # Seg Neutrophils # Man Lymphocytes # (Manual) D-Dimer ABG pH POC ABG pCO2 POC ABG pO2 ABG pO2 ABG HCO3 ABG O2 Saturation ABG Base Excess ABG Oxyhemoglobin ABG Sodium ABG Chloride ABG Glucose Oxyhemoglobin Carboxyhemoglobin Sodium Potassium Chloride Carbon Dioxide BUN Creatinine Glucose POC Glucose 152 H 190 H 261 H Hemoglobin A1c Magnesium Ferritin AST ALT Alkaline Phosphatase Lactate Dehydrogenase C-Reactive Protein Total Protein Albumin Arterial Blood Glucose Coronavirus (PCR) 05/12/21 05/13/21 05/13/21 20:55 11:08 21:41 WBC MCH MCHC RDW Lymph % (Auto) [place] % (Auto) Eos % (Auto) Lymph # (Auto) [place] # (Auto) Eos # (Auto) Baso # (Auto) Seg Neutrophils % Seg Neuts % (Manual) Lymphocytes % (Manual) Seg Neutrophils # Seg Neutrophils # Man Lymphocytes # (Manual) D-Dimer ABG pH POC ABG pCO2 POC ABG pO2 ABG pO2 ABG HCO3 ABG O2 Saturation ABG Base Excess ABG Oxyhemoglobin ABG Sodium ABG Chloride ABG Glucose Oxyhemoglobin Carboxyhemoglobin Sodium Potassium Chloride Carbon Dioxide BUN Creatinine Glucose POC Glucose 231 H 106 H 174 H Hemoglobin A1c Magnesium Ferritin AST ALT Alkaline Phosphatase Lactate Dehydrogenase C-Reactive Protein Total Protein Albumin Arterial Blood Glucose Coronavirus (PCR) 05/14/21 05/14/21 05/14/21 00:53 02:23 06:06 WBC MCH MCHC RDW Lymph % (Auto) [place] % (Auto) Eos % (Auto) Lymph # (Auto) [place] # (Auto) Eos # (Auto) Baso # (Auto) Seg Neutrophils % Seg Neuts % (Manual) Lymphocytes % (Manual) Seg Neutrophils # Seg Neutrophils # Man Lymphocytes # (Manual) D-Dimer ABG pH POC ABG pCO2 POC ABG pO2 ABG pO2 130.3 H ABG HCO3 30.6 H ABG O2 Saturation ABG Base Excess 4.9 H ABG Oxyhemoglobin ABG Sodium ABG Chloride ABG Glucose Oxyhemoglobin Carboxyhemoglobin Sodium Potassium Chloride Carbon Dioxide BUN Creatinine Glucose POC Glucose 229 H 119 H Hemoglobin A1c Magnesium Ferritin AST ALT Alkaline Phosphatase Lactate Dehydrogenase C-Reactive Protein Total Protein Albumin Arterial Blood Glucose Coronavirus (PCR) 05/14/21 05/14/21 05/14/21 07:13 07:13 07:13 WBC MCH MCHC RDW Lymph % (Auto) [place] % (Auto) Eos % (Auto) Lymph # (Auto) [place] # (Auto) Eos # (Auto) Baso # (Auto) Seg Neutrophils % Seg Neuts % (Manual) Lymphocytes % (Manual) Seg Neutrophils # Seg Neutrophils # Man Lymphocytes # (Manual) D-Dimer 712.80 H ABG pH POC ABG pCO2 POC ABG pO2 ABG pO2 ABG HCO3 ABG O2 Saturation ABG Base Excess ABG Oxyhemoglobin ABG Sodium ABG Chloride ABG Glucose Oxyhemoglobin Carboxyhemoglobin Sodium 133 L Potassium Chloride 95.5 L Carbon Dioxide 32 H BUN Creatinine 0.2 L Glucose 137 H POC Glucose Hemoglobin A1c Magnesium Ferritin 283.5 H AST ALT 63 H Alkaline Phosphatase Lactate Dehydrogenase 563 H C-Reactive Protein Total Protein 6.1 L Albumin 3.0 L Arterial Blood Glucose Coronavirus (PCR) 05/14/21 05/14/21 05/14/21 12:21 15:33 21:50 WBC MCH MCHC RDW Lymph % (Auto) [place] % (Auto) Eos % (Auto) Lymph # (Auto) [place] # (Auto) Eos # (Auto) Baso # (Auto) Seg Neutrophils % Seg Neuts % (Manual) Lymphocytes % (Manual) Seg Neutrophils # Seg Neutrophils # Man Lymphocytes # (Manual) D-Dimer ABG pH POC ABG pCO2 POC ABG pO2 ABG pO2 ABG HCO3 ABG O2 Saturation ABG Base Excess ABG Oxyhemoglobin ABG Sodium ABG Chloride ABG Glucose Oxyhemoglobin Carboxyhemoglobin Sodium Potassium Chloride Carbon Dioxide BUN Creatinine Glucose POC Glucose 143 H 204 H 202 H Hemoglobin A1c Magnesium Ferritin AST ALT Alkaline Phosphatase Lactate Dehydrogenase C-Reactive Protein Total Protein Albumin Arterial Blood Glucose Coronavirus (PCR) 05/15/21 05/15/21 05/15/21 05:05 11:12 16:39 WBC MCH MCHC RDW Lymph % (Auto) [place] % (Auto) Eos % (Auto) Lymph # (Auto) [place] # (Auto) Eos # (Auto) Baso # (Auto) Seg Neutrophils % Seg Neuts % (Manual) Lymphocytes % (Manual) Seg Neutrophils # Seg Neutrophils # Man Lymphocytes # (Manual) D-Dimer ABG pH POC ABG pCO2 POC ABG pO2 ABG pO2 ABG HCO3 ABG O2 Saturation ABG Base Excess ABG Oxyhemoglobin ABG Sodium ABG Chloride ABG Glucose Oxyhemoglobin Carboxyhemoglobin Sodium Potassium Chloride Carbon Dioxide BUN Creatinine Glucose POC Glucose 125 H 201 H 241 H Hemoglobin A1c Magnesium Ferritin AST ALT Alkaline Phosphatase Lactate Dehydrogenase C-Reactive Protein Total Protein Albumin Arterial Blood Glucose Coronavirus (PCR) 05/15/21 05/16/21 05/16/21 21:31 05:04 10:40 WBC MCH MCHC RDW Lymph % (Auto) [place] % (Auto) Eos % (Auto) Lymph # (Auto) [place] # (Auto) Eos # (Auto) Baso # (Auto) Seg Neutrophils % Seg Neuts % (Manual) Lymphocytes % (Manual) Seg Neutrophils # Seg Neutrophils # Man Lymphocytes # (Manual) D-Dimer ABG pH POC ABG pCO2 POC ABG pO2 ABG pO2 ABG HCO3 ABG O2 Saturation ABG Base Excess ABG Oxyhemoglobin ABG Sodium ABG Chloride ABG Glucose Oxyhemoglobin Carboxyhemoglobin Sodium Potassium Chloride Carbon Dioxide BUN Creatinine Glucose POC Glucose 234 H 123 H 231 H Hemoglobin A1c Magnesium Ferritin AST ALT Alkaline Phosphatase Lactate Dehydrogenase C-Reactive Protein Total Protein Albumin Arterial Blood Glucose Coronavirus (PCR) 05/16/21 05/16/21 05/17/21 18:23 21:29 06:20 WBC MCH MCHC RDW 18.8 H Lymph % (Auto) 10.2 L [place] % (Auto) Eos % (Auto) Lymph # (Auto) 0.8 L [place] # (Auto) Eos # (Auto) Baso # (Auto) Seg Neutrophils % 85.8 H Seg Neuts % (Manual) Lymphocytes % (Manual) Seg Neutrophils # Seg Neutrophils # Man Lymphocytes # (Manual) D-Dimer ABG pH POC ABG pCO2 POC ABG pO2 ABG pO2 ABG HCO3 ABG O2 Saturation ABG Base Excess ABG Oxyhemoglobin ABG Sodium ABG Chloride ABG Glucose Oxyhemoglobin Carboxyhemoglobin Sodium Potassium Chloride Carbon Dioxide BUN Creatinine Glucose POC Glucose 266 H 234 H Hemoglobin A1c Magnesium Ferritin AST ALT Alkaline Phosphatase Lactate Dehydrogenase C-Reactive Protein Total Protein Albumin Arterial Blood Glucose Coronavirus (PCR) 05/17/21 05/17/21 05/17/21 06:20 11:06 16:36 WBC MCH MCHC RDW Lymph % (Auto) [place] % (Auto) Eos % (Auto) Lymph # (Auto) [place] # (Auto) Eos # (Auto) Baso # (Auto) Seg Neutrophils % Seg Neuts % (Manual) Lymphocytes % (Manual) Seg Neutrophils # Seg Neutrophils # Man Lymphocytes # (Manual) D-Dimer ABG pH POC ABG pCO2 POC ABG pO2 ABG pO2 ABG HCO3 ABG O2 Saturation ABG Base Excess ABG Oxyhemoglobin ABG Sodium ABG Chloride ABG Glucose Oxyhemoglobin Carboxyhemoglobin Sodium Potassium Chloride Carbon Dioxide 33 H BUN Creatinine 0.2 L Glucose 101 H POC Glucose 209 H 180 H Hemoglobin A1c Magnesium Ferritin AST ALT Alkaline Phosphatase Lactate Dehydrogenase C-Reactive Protein Total Protein Albumin Arterial Blood Glucose Coronavirus (PCR) 05/17/21 05/18/21 05/18/21 21:06 12:00 15:06 WBC MCH MCHC RDW Lymph % (Auto) [place] % (Auto) Eos % (Auto) Lymph # (Auto) [place] # (Auto) Eos # (Auto) Baso # (Auto) Seg Neutrophils % Seg Neuts % (Manual) Lymphocytes % (Manual) Seg Neutrophils # Seg Neutrophils # Man Lymphocytes # (Manual) D-Dimer 874.02 H ABG pH POC ABG pCO2 POC ABG pO2 ABG pO2 ABG HCO3 ABG O2 Saturation ABG Base Excess ABG Oxyhemoglobin ABG Sodium ABG Chloride ABG Glucose Oxyhemoglobin Carboxyhemoglobin Sodium Potassium Chloride Carbon Dioxide BUN Creatinine Glucose POC Glucose 256 H 139 H Hemoglobin A1c Magnesium Ferritin AST ALT Alkaline Phosphatase Lactate Dehydrogenase C-Reactive Protein Total Protein Albumin Arterial Blood Glucose Coronavirus (PCR) 05/18/21 05/18/21 05/18/21 15:06 15:06 16:08 WBC MCH MCHC RDW Lymph % (Auto) [place] % (Auto) Eos % (Auto) Lymph # (Auto) [place] # (Auto) Eos # (Auto) Baso # (Auto) Seg Neutrophils % Seg Neuts % (Manual) Lymphocytes % (Manual) Seg Neutrophils # Seg Neutrophils # Man Lymphocytes # (Manual) D-Dimer ABG pH POC ABG pCO2 POC ABG pO2 ABG pO2 ABG HCO3 ABG O2 Saturation ABG Base Excess ABG Oxyhemoglobin ABG Sodium ABG Chloride ABG Glucose Oxyhemoglobin Carboxyhemoglobin Sodium Potassium Chloride Carbon Dioxide BUN Creatinine Glucose POC Glucose 178 H Hemoglobin A1c Magnesium Ferritin 289.6 H AST ALT Alkaline Phosphatase Lactate Dehydrogenase 605 H C-Reactive Protein Total Protein Albumin Arterial Blood Glucose Coronavirus (PCR) 05/18/21 05/19/21 05/19/21 21:22 11:57 15:26 WBC MCH MCHC RDW Lymph % (Auto) [place] % (Auto) Eos % (Auto) Lymph # (Auto) [place] # (Auto) Eos # (Auto) Baso # (Auto) Seg Neutrophils % Seg Neuts % (Manual) Lymphocytes % (Manual) Seg Neutrophils # Seg Neutrophils # Man Lymphocytes # (Manual) D-Dimer ABG pH POC ABG pCO2 POC ABG pO2 ABG pO2 ABG HCO3 ABG O2 Saturation ABG Base Excess ABG Oxyhemoglobin ABG Sodium ABG Chloride ABG Glucose Oxyhemoglobin Carboxyhemoglobin Sodium Potassium Chloride Carbon Dioxide BUN Creatinine Glucose POC Glucose 241 H 201 H 209 H Hemoglobin A1c Magnesium Ferritin AST ALT Alkaline Phosphatase Lactate Dehydrogenase C-Reactive Protein Total Protein Albumin Arterial Blood Glucose Coronavirus (PCR) 05/19/21 05/20/21 05/20/21 20:59 07:38 08:01 WBC MCH MCHC RDW 19.7 H Lymph % (Auto) 8.3 L [place] % (Auto) Eos % (Auto) Lymph # (Auto) 0.8 L [place] # (Auto) Eos # (Auto) Baso # (Auto) Seg Neutrophils % 88.6 H Seg Neuts % (Manual) Lymphocytes % (Manual) Seg Neutrophils # 8.4 H Seg Neutrophils # Man Lymphocytes # (Manual) D-Dimer ABG pH POC ABG pCO2 POC ABG pO2 ABG pO2 ABG HCO3 ABG O2 Saturation ABG Base Excess ABG Oxyhemoglobin ABG Sodium ABG Chloride ABG Glucose Oxyhemoglobin Carboxyhemoglobin Sodium Potassium Chloride Carbon Dioxide BUN Creatinine Glucose POC Glucose 226 H 130 H Hemoglobin A1c Magnesium Ferritin AST ALT Alkaline Phosphatase Lactate Dehydrogenase C-Reactive Protein Total Protein Albumin Arterial Blood Glucose Coronavirus (PCR) 05/20/21 05/20/21 05/20/21 08:01 11:00 16:43 WBC MCH MCHC RDW Lymph % (Auto) [place] % (Auto) Eos % (Auto) Lymph # (Auto) [place] # (Auto) Eos # (Auto) Baso # (Auto) Seg Neutrophils % Seg Neuts % (Manual) Lymphocytes % (Manual) Seg Neutrophils # Seg Neutrophils # Man Lymphocytes # (Manual) D-Dimer ABG pH POC ABG pCO2 POC ABG pO2 ABG pO2 ABG HCO3 ABG O2 Saturation ABG Base Excess ABG Oxyhemoglobin ABG Sodium ABG Chloride ABG Glucose Oxyhemoglobin Carboxyhemoglobin Sodium Potassium Chloride Carbon Dioxide BUN 18 H Creatinine 0.2 L Glucose 132 H POC Glucose 237 H 240 H Hemoglobin A1c Magnesium Ferritin AST ALT Alkaline Phosphatase Lactate Dehydrogenase C-Reactive Protein Total Protein Albumin Arterial Blood Glucose Coronavirus (PCR) 05/20/21 05/21/21 05/21/21 21:21 07:35 11:32 WBC MCH MCHC RDW Lymph % (Auto) [place] % (Auto) Eos % (Auto) Lymph # (Auto) [place] # (Auto) Eos # (Auto) Baso # (Auto) Seg Neutrophils % Seg Neuts % (Manual) Lymphocytes % (Manual) Seg Neutrophils # Seg Neutrophils # Man Lymphocytes # (Manual) D-Dimer ABG pH POC ABG pCO2 POC ABG pO2 ABG pO2 ABG HCO3 ABG O2 Saturation ABG Base Excess ABG Oxyhemoglobin ABG Sodium ABG Chloride ABG Glucose Oxyhemoglobin Carboxyhemoglobin Sodium Potassium Chloride Carbon Dioxide BUN Creatinine Glucose POC Glucose 241 H 162 H 171 H Hemoglobin A1c Magnesium Ferritin AST ALT Alkaline Phosphatase Lactate Dehydrogenase C-Reactive Protein Total Protein Albumin Arterial Blood Glucose Coronavirus (PCR) 05/21/21 05/21/21 05/22/21 16:22 20:43 05:14 WBC MCH MCHC RDW Lymph % (Auto) [place] % (Auto) Eos % (Auto) Lymph # (Auto) [place] # (Auto) Eos # (Auto) Baso # (Auto) Seg Neutrophils % Seg Neuts % (Manual) Lymphocytes % (Manual) Seg Neutrophils # Seg Neutrophils # Man Lymphocytes # (Manual) D-Dimer ABG pH POC ABG pCO2 POC ABG pO2 ABG pO2 ABG HCO3 ABG O2 Saturation ABG Base Excess ABG Oxyhemoglobin ABG Sodium ABG Chloride ABG Glucose Oxyhemoglobin Carboxyhemoglobin Sodium Potassium Chloride Carbon Dioxide BUN Creatinine Glucose POC Glucose 244 H 299 H 140 H Hemoglobin A1c Magnesium Ferritin AST ALT Alkaline Phosphatase Lactate Dehydrogenase C-Reactive Protein Total Protein Albumin Arterial Blood Glucose Coronavirus (PCR) 05/22/21 05/22/21 05/22/21 08:45 11:54 16:15 WBC MCH MCHC RDW Lymph % (Auto) [place] % (Auto) Eos % (Auto) Lymph # (Auto) [place] # (Auto) Eos # (Auto) Baso # (Auto) Seg Neutrophils % Seg Neuts % (Manual) Lymphocytes % (Manual) Seg Neutrophils # Seg Neutrophils # Man Lymphocytes # (Manual) D-Dimer ABG pH POC ABG pCO2 POC ABG pO2 ABG pO2 ABG HCO3 ABG O2 Saturation ABG Base Excess ABG Oxyhemoglobin ABG Sodium ABG Chloride ABG Glucose Oxyhemoglobin Carboxyhemoglobin Sodium Potassium Chloride Carbon Dioxide BUN Creatinine Glucose POC Glucose 133 H 265 H 221 H Hemoglobin A1c Magnesium Ferritin AST ALT Alkaline Phosphatase Lactate Dehydrogenase C-Reactive Protein Total Protein Albumin Arterial Blood Glucose Coronavirus (PCR) 05/22/21 05/23/21 05/23/21 21:43 08:20 09:50 WBC MCH MCHC RDW Lymph % (Auto) [place] % (Auto) Eos % (Auto) Lymph # (Auto) [place] # (Auto) Eos # (Auto) Baso # (Auto) Seg Neutrophils % Seg Neuts % (Manual) Lymphocytes % (Manual) Seg Neutrophils # Seg Neutrophils # Man Lymphocytes # (Manual) D-Dimer 910.38 H ABG pH POC ABG pCO2 POC ABG pO2 ABG pO2 ABG HCO3 ABG O2 Saturation ABG Base Excess ABG Oxyhemoglobin ABG Sodium ABG Chloride ABG Glucose Oxyhemoglobin Carboxyhemoglobin Sodium Potassium Chloride Carbon Dioxide BUN Creatinine Glucose POC Glucose 262 H 140 H Hemoglobin A1c Magnesium Ferritin AST ALT Alkaline Phosphatase Lactate Dehydrogenase C-Reactive Protein Total Protein Albumin Arterial Blood Glucose Coronavirus (PCR) 05/23/21 05/23/2105/23/21 09:50 09:50 10:52 WBC MCH MCHC RDW Lymph % (Auto) [place] % (Auto) Eos % (Auto) Lymph # (Auto) [place] # (Auto) Eos # (Auto) Baso # (Auto) Seg Neutrophils % Seg Neuts % (Manual) Lymphocytes % (Manual) Seg Neutrophils # Seg Neutrophils # Man Lymphocytes # (Manual) D-Dimer ABG pH POC ABG pCO2 POC ABG pO2 ABG pO2 ABG HCO3 ABG O2 Saturation ABG Base Excess ABG Oxyhemoglobin ABG Sodium ABG Chloride ABG Glucose Oxyhemoglobin Carboxyhemoglobin Sodium Potassium Chloride Carbon Dioxide BUN Creatinine Glucose POC Glucose 241 H Hemoglobin A1c Magnesium Ferritin 244.9 H AST ALT Alkaline Phosphatase Lactate Dehydrogenase 584 H C-Reactive Protein Total Protein Albumin Arterial Blood Glucose Coronavirus (PCR) 05/23/21 05/23/21 05/24/21 17:24 21:52 07:44 WBC MCH MCHC RDW Lymph % (Auto) [place] % (Auto) Eos % (Auto) Lymph # (Auto) [place] # (Auto) Eos # (Auto) Baso # (Auto) Seg Neutrophils % Seg Neuts % (Manual) Lymphocytes % (Manual) Seg Neutrophils # Seg Neutrophils # Man Lymphocytes # (Manual) D-Dimer ABG pH POC ABG pCO2 POC ABG pO2 ABG pO2 ABG HCO3 ABG O2 Saturation ABG Base Excess ABG Oxyhemoglobin ABG Sodium ABG Chloride ABG Glucose Oxyhemoglobin Carboxyhemoglobin Sodium Potassium Chloride Carbon Dioxide BUN Creatinine Glucose POC Glucose 197 H 289 H 161 H Hemoglobin A1c Magnesium Ferritin AST ALT Alkaline Phosphatase Lactate Dehydrogenase C-Reactive Protein Total Protein Albumin Arterial Blood Glucose Coronavirus (PCR) 05/24/21 05/24/21 05/24/21 11:17 17:51 21:26 WBC MCH MCHC RDW Lymph % (Auto) [place] % (Auto) Eos % (Auto) Lymph # (Auto) [place] # (Auto) Eos # (Auto) Baso # (Auto) Seg Neutrophils % Seg Neuts % (Manual) Lymphocytes % (Manual) Seg Neutrophils # Seg Neutrophils # Man Lymphocytes # (Manual) D-Dimer ABG pH POC ABG pCO2 POC ABG pO2 ABG pO2 ABG HCO3 ABG O2 Saturation ABG Base Excess ABG Oxyhemoglobin ABG Sodium ABG Chloride ABG Glucose Oxyhemoglobin Carboxyhemoglobin Sodium Potassium Chloride Carbon Dioxide BUN Creatinine Glucose POC Glucose 308 H 175 H 198 H Hemoglobin A1c Magnesium Ferritin AST ALT Alkaline Phosphatase Lactate Dehydrogenase C-Reactive Protein Total Protein Albumin Arterial Blood Glucose Coronavirus (PCR) 05/25/21 05/25/21 05/25/21 08:14 11:13 17:13 WBC MCH MCHC RDW Lymph % (Auto) [place] % (Auto) Eos % (Auto) Lymph # (Auto) [place] # (Auto) Eos # (Auto) Baso # (Auto) Seg Neutrophils % Seg Neuts % (Manual) Lymphocytes % (Manual) Seg Neutrophils # Seg Neutrophils # Man Lymphocytes # (Manual) D-Dimer ABG pH POC ABG pCO2 POC ABG pO2 ABG pO2 ABG HCO3 ABG O2 Saturation ABG Base Excess ABG Oxyhemoglobin ABG Sodium ABG Chloride ABG Glucose Oxyhemoglobin Carboxyhemoglobin Sodium Potassium Chloride Carbon Dioxide BUN Creatinine Glucose POC Glucose 203 H 339 H 235 H Hemoglobin A1c Magnesium Ferritin AST ALT Alkaline Phosphatase Lactate Dehydrogenase C-Reactive Protein Total Protein Albumin Arterial Blood Glucose Coronavirus (PCR) 05/25/21 05/26/21 05/26/21 21:03 07:33 11:19 WBC MCH MCHC RDW Lymph % (Auto) [place] % (Auto) Eos % (Auto) Lymph # (Auto) [place] # (Auto) Eos # (Auto) Baso # (Auto) Seg Neutrophils % Seg Neuts % (Manual) Lymphocytes % (Manual) Seg Neutrophils # Seg Neutrophils # Man Lymphocytes # (Manual) D-Dimer ABG pH POC ABG pCO2 POC ABG pO2 ABG pO2 ABG HCO3 ABG O2 Saturation ABG Base Excess ABG Oxyhemoglobin ABG Sodium ABG Chloride ABG Glucose Oxyhemoglobin Carboxyhemoglobin Sodium Potassium Chloride Carbon Dioxide BUN Creatinine Glucose POC Glucose 263 H 156 H 288 H Hemoglobin A1c Magnesium Ferritin AST ALT Alkaline Phosphatase Lactate Dehydrogenase C-Reactive Protein Total Protein Albumin Arterial Blood Glucose Coronavirus (PCR) 05/26/21 05/26/21 05/27/21 16:26 20:55 07:38 WBC MCH MCHC RDW Lymph % (Auto) [place] % (Auto) Eos % (Auto) Lymph # (Auto) [place] # (Auto) Eos # (Auto) Baso # (Auto) Seg Neutrophils % Seg Neuts % (Manual) Lymphocytes % (Manual) Seg Neutrophils # Seg Neutrophils # Man Lymphocytes # (Manual) D-Dimer ABG pH POC ABG pCO2 POC ABG pO2 ABG pO2 ABG HCO3 ABG O2 Saturation ABG Base Excess ABG Oxyhemoglobin ABG Sodium ABG Chloride ABG Glucose Oxyhemoglobin Carboxyhemoglobin Sodium Potassium Chloride Carbon Dioxide BUN Creatinine Glucose POC Glucose 286 H 293 H 115 H Hemoglobin A1c Magnesium Ferritin AST ALT Alkaline Phosphatase Lactate Dehydrogenase C-Reactive Protein Total Protein Albumin Arterial Blood Glucose Coronavirus (PCR) 05/27/21 05/27/21 05/27/21 11:46 15:58 21:02 WBC MCH MCHC RDW Lymph % (Auto) [place] % (Auto) Eos % (Auto) Lymph # (Auto) [place] # (Auto) Eos # (Auto) Baso # (Auto) Seg Neutrophils % Seg Neuts % (Manual) Lymphocytes % (Manual) Seg Neutrophils # Seg Neutrophils # Man Lymphocytes # (Manual) D-Dimer ABG pH POC ABG pCO2 POC ABG pO2 ABG pO2 ABG HCO3 ABG O2 Saturation ABG Base Excess ABG Oxyhemoglobin ABG Sodium ABG Chloride ABG Glucose Oxyhemoglobin Carboxyhemoglobin Sodium Potassium Chloride Carbon Dioxide BUN Creatinine Glucose POC Glucose 260 H 318 H 246 H Hemoglobin A1c Magnesium Ferritin AST ALT Alkaline Phosphatase Lactate Dehydrogenase C-Reactive Protein Total Protein Albumin Arterial Blood Glucose Coronavirus (PCR) 05/28/21 05/28/21 05/28/21 07:34 11:31 16:36 WBC MCH MCHC RDW Lymph % (Auto) [place] % (Auto) Eos % (Auto) Lymph # (Auto) [place] # (Auto) Eos # (Auto) Baso # (Auto) Seg Neutrophils % Seg Neuts % (Manual) Lymphocytes % (Manual) Seg Neutrophils # Seg Neutrophils # Man Lymphocytes # (Manual) D-Dimer ABG pH POC ABG pCO2 POC ABG pO2 ABG pO2 ABG HCO3 ABG O2 Saturation ABG Base Excess ABG Oxyhemoglobin ABG Sodium ABG Chloride ABG Glucose Oxyhemoglobin Carboxyhemoglobin Sodium Potassium Chloride Carbon Dioxide BUN Creatinine Glucose POC Glucose 185 H 297 H 183 H Hemoglobin A1c Magnesium Ferritin AST ALT Alkaline Phosphatase Lactate Dehydrogenase C-Reactive Protein Total Protein Albumin Arterial Blood Glucose Coronavirus (PCR) 05/28/21 05/29/21 05/29/21 21:19 07:34 11:19 WBC MCH MCHC RDW Lymph % (Auto) [place] % (Auto) Eos % (Auto) Lymph # (Auto) [place] # (Auto) Eos # (Auto) Baso # (Auto) Seg Neutrophils % Seg Neuts % (Manual) Lymphocytes % (Manual) Seg Neutrophils # Seg Neutrophils # Man Lymphocytes # (Manual) D-Dimer ABG pH POC ABG pCO2 POC ABG pO2 ABG pO2 ABG HCO3 ABG O2 Saturation ABG Base Excess ABG Oxyhemoglobin ABG Sodium ABG Chloride ABG Glucose Oxyhemoglobin Carboxyhemoglobin Sodium Potassium Chloride Carbon Dioxide BUN Creatinine Glucose POC Glucose 274 H 139 H 293 H Hemoglobin A1c Magnesium Ferritin AST ALT Alkaline Phosphatase Lactate Dehydrogenase C-Reactive Protein Total Protein Albumin Arterial Blood Glucose Coronavirus (PCR) 05/29/21 05/29/21 05/30/21 16:36 22:44 05:55 WBC MCH MCHC RDW 21.3 H Lymph % (Auto) 8.0 L [place] % (Auto) Eos % (Auto) Lymph # (Auto) 0.6 L [place] # (Auto) Eos # (Auto) Baso # (Auto) Seg Neutrophils % 88.6 H Seg Neuts % (Manual) Lymphocytes % (Manual) Seg Neutrophils # Seg Neutrophils # Man Lymphocytes # (Manual) D-Dimer ABG pH POC ABG pCO2 POC ABG pO2 ABG pO2 ABG HCO3 ABG O2 Saturation ABG Base Excess ABG Oxyhemoglobin ABG Sodium ABG Chloride ABG Glucose Oxyhemoglobin Carboxyhemoglobin Sodium Potassium Chloride Carbon Dioxide BUN Creatinine Glucose POC Glucose 299 H 160 H Hemoglobin A1c Magnesium Ferritin AST ALT Alkaline Phosphatase Lactate Dehydrogenase C-Reactive Protein Total Protein Albumin Arterial Blood Glucose Coronavirus (PCR) 05/30/21 05/30/21 05/30/21 05:55 08:04 11:13 WBC MCH MCHC RDW Lymph % (Auto) [place] % (Auto) Eos % (Auto) Lymph # (Auto) [place] # (Auto) Eos # (Auto) Baso # (Auto) Seg Neutrophils % Seg Neuts % (Manual) Lymphocytes % (Manual) Seg Neutrophils # Seg Neutrophils # Man Lymphocytes # (Manual) D-Dimer ABG pH POC ABG pCO2 POC ABG pO2 ABG pO2 ABG HCO3 ABG O2 Saturation ABG Base Excess ABG Oxyhemoglobin ABG Sodium ABG Chloride ABG Glucose Oxyhemoglobin Carboxyhemoglobin Sodium Potassium Chloride Carbon Dioxide BUN 19 H Creatinine 0.2 L Glucose 209 H POC Glucose 157 H 275 H Hemoglobin A1c Magnesium Ferritin AST ALT Alkaline Phosphatase Lactate Dehydrogenase C-Reactive Protein Total Protein Albumin Arterial Blood Glucose Coronavirus (PCR) 05/30/21 05/30/21 05/31/21 17:08 22:12 07:36 WBC MCH MCHC RDW Lymph % (Auto) [place] % (Auto) Eos % (Auto) Lymph # (Auto) [place] # (Auto) Eos # (Auto) Baso # (Auto) Seg Neutrophils % Seg Neuts % (Manual) Lymphocytes % (Manual) Seg Neutrophils # Seg Neutrophils # Man Lymphocytes # (Manual) D-Dimer ABG pH POC ABG pCO2 POC ABG pO2 ABG pO2 ABG HCO3 ABG O2 Saturation ABG Base Excess ABG Oxyhemoglobin ABG Sodium ABG Chloride ABG Glucose Oxyhemoglobin Carboxyhemoglobin Sodium Potassium Chloride Carbon Dioxide BUN Creatinine Glucose POC Glucose 154 H 275 H 138 H Hemoglobin A1c Magnesium Ferritin AST ALT Alkaline Phosphatase Lactate Dehydrogenase C-Reactive Protein Total Protein Albumin Arterial Blood Glucose Coronavirus (PCR) 05/31/21 05/31/21 05/31/21 11:17 16:55 21:25 WBC MCH MCHC RDW Lymph % (Auto) [place] % (Auto) Eos % (Auto) Lymph # (Auto) [place] # (Auto) Eos # (Auto) Baso # (Auto) Seg Neutrophils % Seg Neuts % (Manual) Lymphocytes % (Manual) Seg Neutrophils # Seg Neutrophils # Man Lymphocytes # (Manual) D-Dimer ABG pH POC ABG pCO2 POC ABG pO2 ABG pO2 ABG HCO3 ABG O2 Saturation ABG Base Excess ABG Oxyhemoglobin ABG Sodium ABG Chloride ABG Glucose Oxyhemoglobin Carboxyhemoglobin Sodium Potassium Chloride Carbon Dioxide BUN Creatinine Glucose POC Glucose 258 H 215 H 318 H Hemoglobin A1c Magnesium Ferritin AST ALT Alkaline Phosphatase Lactate Dehydrogenase C-Reactive Protein Total Protein Albumin Arterial Blood Glucose Coronavirus (PCR) 06/01/21 06/01/21 06/01/21 07:23 11:38 16:52 WBC MCH MCHC RDW Lymph % (Auto) [place]ike % (Auto) Eos % (Auto) Lymph # (Auto) [place] # (Auto) Eos # (Auto) Baso # (Auto) Seg Neutrophils % Seg Neuts % (Manual) Lymphocytes % (Manual) Seg Neutrophils # Seg Neutrophils # Man Lymphocytes # (Manual) D-Dimer ABG pH POC ABG pCO2 POC ABG pO2 ABG pO2 ABG HCO3 ABG O2 Saturation ABG Base Excess ABG Oxyhemoglobin ABG Sodium ABG Chloride ABG Glucose Oxyhemoglobin Carboxyhemoglobin Sodium Potassium Chloride Carbon Dioxide BUN Creatinine Glucose POC Glucose 157 H 259 H 150 H Hemoglobin A1c Magnesium Ferritin AST ALT Alkaline Phosphatase Lactate Dehydrogenase C-Reactive Protein Total Protein Albumin Arterial Blood Glucose Coronavirus (PCR) 06/01/21 06/02/21 06/02/21 23:16 05:34 05:34 WBC MCH MCHC RDW 21.3 H Lymph % (Auto) 9.6 L [place] % (Auto) Eos % (Auto) Lymph # (Auto) 0.6 L [place] # (Auto) Eos # (Auto) Baso # (Auto) Seg Neutrophils % 86.2 H Seg Neuts % (Manual) Lymphocytes % (Manual) Seg Neutrophils # Seg Neutrophils # Man Lymphocytes # (Manual) D-Dimer ABG pH POC ABG pCO2 POC ABG pO2 ABG pO2 ABG HCO3 ABG O2 Saturation ABG Base Excess ABG Oxyhemoglobin ABG Sodium ABG Chloride ABG Glucose Oxyhemoglobin Carboxyhemoglobin Sodium 136 L Potassium Chloride Carbon Dioxide BUN Creatinine 0.2 L Glucose 186 H POC Glucose 247 H Hemoglobin A1c Magnesium Ferritin AST ALT 69 H Alkaline Phosphatase Lactate Dehydrogenase C-Reactive Protein Total Protein 6.1 L Albumin 3.2 L Arterial Blood Glucose Coronavirus (PCR) 06/02/21 06/02/21 06/02/21 11:25 18:23 21:32 WBC MCH MCHC RDW Lymph % (Auto) [place]ike % (Auto) Eos % (Auto) Lymph # (Auto) [place] # (Auto) Eos # (Auto) Baso # (Auto) Seg Neutrophils % Seg Neuts % (Manual) Lymphocytes % (Manual) Seg Neutrophils # Seg Neutrophils # Man Lymphocytes # (Manual) D-Dimer ABG pH POC ABG pCO2 POC ABG pO2 ABG pO2 ABG HCO3 ABG O2 Saturation ABG Base Excess ABG Oxyhemoglobin ABG Sodium ABG Chloride ABG Glucose Oxyhemoglobin Carboxyhemoglobin Sodium Potassium Chloride Carbon Dioxide BUN Creatinine Glucose POC Glucose 157 H 299 H 246 H Hemoglobin A1c Magnesium Ferritin AST ALT Alkaline Phosphatase Lactate Dehydrogenase C-Reactive Protein Total Protein Albumin Arterial Blood Glucose Coronavirus (PCR) 06/03/21 06/03/21 06/03/21 08:12 12:21 17:31 WBC MCH MCHC RDW Lymph % (Auto) [place] % (Auto) Eos % (Auto) Lymph # (Auto) [place] # (Auto) Eos # (Auto) Baso # (Auto) Seg Neutrophils % Seg Neuts % (Manual) Lymphocytes % (Manual) Seg Neutrophils # Seg Neutrophils # Man Lymphocytes # (Manual) D-Dimer ABG pH POC ABG pCO2 POC ABG pO2 ABG pO2 ABG HCO3 ABG O2 Saturation ABG Base Excess ABG Oxyhemoglobin ABG Sodium ABG Chloride ABG Glucose Oxyhemoglobin Carboxyhemoglobin Sodium Potassium Chloride Carbon Dioxide BUN Creatinine Glucose POC Glucose 153 H 302 H 252 H Hemoglobin A1c Magnesium Ferritin AST ALT Alkaline Phosphatase Lactate Dehydrogenase C-Reactive Protein Total Protein Albumin Arterial Blood Glucose Coronavirus (PCR) 06/03/21 06/04/21 06/04/21 22:08 11:12 16:01 WBC MCH MCHC RDW Lymph % (Auto) [place] % (Auto) Eos % (Auto) Lymph # (Auto) [place] # (Auto) Eos # (Auto) Baso # (Auto) Seg Neutrophils % Seg Neuts % (Manual) Lymphocytes % (Manual) Seg Neutrophils # Seg Neutrophils # Man Lymphocytes # (Manual) D-Dimer ABG pH POC ABG pCO2 POC ABG pO2 ABG pO2 ABG HCO3 ABG O2 Saturation ABG Base Excess ABG Oxyhemoglobin ABG Sodium ABG Chloride ABG Glucose Oxyhemoglobin Carboxyhemoglobin Sodium Potassium Chloride Carbon Dioxide BUN Creatinine Glucose POC Glucose 224 H 259 H 238 H Hemoglobin A1c Magnesium Ferritin AST ALT Alkaline Phosphatase Lactate Dehydrogenase C-Reactive Protein Total Protein Albumin Arterial Blood Glucose Coronavirus (PCR) 06/04/21 06/05/21 06/05/21 21:26 05:26 05:26 WBC MCH MCHC RDW Lymph % (Auto) [place] % (Auto) Eos % (Auto) Lymph # (Auto) [place] # (Auto) Eos # (Auto) Baso # (Auto) Seg Neutrophils % Seg Neuts % (Manual) Lymphocytes % (Manual) Seg Neutrophils # Seg Neutrophils # Man Lymphocytes # (Manual) D-Dimer 488.49 H ABG pH POC ABG pCO2 POC ABG pO2 ABG pO2 ABG HCO3 ABG O2 Saturation ABG Base Excess ABG Oxyhemoglobin ABG Sodium ABG Chloride ABG Glucose Oxyhemoglobin Carboxyhemoglobin Sodium Potassium Chloride Carbon Dioxide BUN Creatinine 0.2 L Glucose 198 H POC Glucose 257 H Hemoglobin A1c Magnesium Ferritin AST ALT Alkaline Phosphatase Lactate Dehydrogenase 475 H C-Reactive Protein Total Protein Albumin Arterial Blood Glucose Coronavirus (PCR) 06/05/21 06/05/21 06/05/21 07:20 08:30 11:00 WBC MCH MCHC RDW Lymph % (Auto) [place] % (Auto) Eos % (Auto) Lymph # (Auto) [place] # (Auto) Eos # (Auto) Baso # (Auto) Seg Neutrophils % Seg Neuts % (Manual) Lymphocytes % (Manual) Seg Neutrophils # Seg Neutrophils # Man Lymphocytes # (Manual) D-Dimer ABG pH POC ABG pCO2 POC ABG pO2 ABG pO2 ABG HCO3 ABG O2 Saturation ABG Base Excess ABG Oxyhemoglobin ABG Sodium ABG Chloride ABG Glucose Oxyhemoglobin Carboxyhemoglobin Sodium Potassium Chloride Carbon Dioxide BUN Creatinine Glucose POC Glucose 146 H 246 H Hemoglobin A1c Magnesium Ferritin AST ALT Alkaline Phosphatase Lactate Dehydrogenase C-Reactive Protein Total Protein Albumin Arterial Blood Glucose Coronavirus (PCR) Positive A 06/05/21 06/05/21 06/06/21 16:50 22:30 07:57 WBC MCH MCHC RDW Lymph % (Auto) [place] % (Auto) Eos % (Auto) Lymph # (Auto) [place] # (Auto) Eos # (Auto) Baso # (Auto) Seg Neutrophils % Seg Neuts % (Manual) Lymphocytes % (Manual) Seg Neutrophils # Seg Neutrophils # Man Lymphocytes # (Manual) D-Dimer ABG pH POC ABG pCO2 POC ABG pO2 ABG pO2 ABG HCO3 ABG O2 Saturation ABG Base Excess ABG Oxyhemoglobin ABG Sodium ABG Chloride ABG Glucose Oxyhemoglobin Carboxyhemoglobin Sodium Potassium Chloride Carbon Dioxide BUN Creatinine Glucose POC Glucose 240 H 174 H 120 H Hemoglobin A1c Magnesium Ferritin AST ALT Alkaline Phosphatase Lactate Dehydrogenase C-Reactive Protein Total Protein Albumin Arterial Blood Glucose Coronavirus (PCR) 06/06/21 06/06/21 06/06/21 11:14 16:50 21:11 WBC MCH MCHC RDW Lymph % (Auto) [place] % (Auto) Eos % (Auto) Lymph # (Auto) [place] # (Auto) Eos # (Auto) Baso # (Auto) Seg Neutrophils % Seg Neuts % (Manual) Lymphocytes % (Manual) Seg Neutrophils # Seg Neutrophils # Man Lymphocytes # (Manual) D-Dimer ABG pH POC ABG pCO2 POC ABG pO2 ABG pO2 ABG HCO3 ABG O2 Saturation ABG Base Excess ABG Oxyhemoglobin ABG Sodium ABG Chloride ABG Glucose Oxyhemoglobin Carboxyhemoglobin Sodium Potassium Chloride Carbon Dioxide BUN Creatinine Glucose POC Glucose 267 H 218 H 124 H Hemoglobin A1c Magnesium Ferritin AST ALT Alkaline Phosphatase Lactate Dehydrogenase C-Reactive Protein Total Protein Albumin Arterial Blood Glucose Coronavirus (PCR) 06/07/21 06/07/21 06/08/21 11:58 15:59 07:59 WBC MCH MCHC RDW Lymph % (Auto) [place] % (Auto) Eos % (Auto) Lymph # (Auto) [place] # (Auto) Eos # (Auto) Baso # (Auto) Seg Neutrophils % Seg Neuts % (Manual) Lymphocytes % (Manual) Seg Neutrophils # Seg Neutrophils # Man Lymphocytes # (Manual) D-Dimer ABG pH POC ABG pCO2 POC ABG pO2 ABG pO2 ABG HCO3 ABG O2 Saturation ABG Base Excess ABG Oxyhemoglobin ABG Sodium ABG Chloride ABG Glucose Oxyhemoglobin Carboxyhemoglobin Sodium Potassium Chloride Carbon Dioxide BUN Creatinine Glucose POC Glucose 219 H 208 H 192 H Hemoglobin A1c Magnesium Ferritin AST ALT Alkaline Phosphatase Lactate Dehydrogenase C-Reactive Protein Total Protein Albumin Arterial Blood Glucose Coronavirus (PCR) 06/08/21 06/08/21 06/09/21 11:26 23:28 07:33 WBC MCH MCHC RDW Lymph % (Auto) [place] % (Auto) Eos % (Auto) Lymph # (Auto) [place] # (Auto) Eos # (Auto) Baso # (Auto) Seg Neutrophils % Seg Neuts % (Manual) Lymphocytes % (Manual) Seg Neutrophils # Seg Neutrophils # Man Lymphocytes # (Manual) D-Dimer ABG pH POC ABG pCO2 POC ABG pO2 ABG pO2 ABG HCO3 ABG O2 Saturation ABG Base Excess ABG Oxyhemoglobin ABG Sodium ABG Chloride ABG Glucose Oxyhemoglobin Carboxyhemoglobin Sodium Potassium Chloride Carbon Dioxide BUN Creatinine Glucose POC Glucose 307 H 138 H 145 H Hemoglobin A1c Magnesium Ferritin AST ALT Alkaline Phosphatase Lactate Dehydrogenase C-Reactive Protein Total Protein Albumin Arterial Blood Glucose Coronavirus (PCR) 06/09/21 06/09/21 06/09/21 11:01 15:47 21:43 WBC MCH MCHC RDW Lymph % (Auto) [place] % (Auto) Eos % (Auto) Lymph # (Auto) [place] # (Auto) Eos # (Auto) Baso # (Auto) Seg Neutrophils % Seg Neuts % (Manual) Lymphocytes % (Manual) Seg Neutrophils # Seg Neutrophils # Man Lymphocytes # (Manual) D-Dimer ABG pH POC ABG pCO2 POC ABG pO2 ABG pO2 ABG HCO3 ABG O2 Saturation ABG Base Excess ABG Oxyhemoglobin ABG Sodium ABG Chloride ABG Glucose Oxyhemoglobin Carboxyhemoglobin Sodium Potassium Chloride Carbon Dioxide BUN Creatinine Glucose POC Glucose 266 H 305 H 223 H Hemoglobin A1c Magnesium Ferritin AST ALT Alkaline Phosphatase Lactate Dehydrogenase C-Reactive Protein Total Protein Albumin Arterial Blood Glucose Coronavirus (PCR) 06/10/21 06/10/21 06/10/21 08:27 12:10 17:45 WBC MCH MCHC RDW Lymph % (Auto) [place] % (Auto) Eos % (Auto) Lymph # (Auto) [place] # (Auto) Eos # (Auto) Baso # (Auto) Seg Neutrophils % Seg Neuts % (Manual) Lymphocytes % (Manual) Seg Neutrophils # Seg Neutrophils # Man Lymphocytes # (Manual) D-Dimer ABG pH POC ABG pCO2 POC ABG pO2 ABG pO2 ABG HCO3 ABG O2 Saturation ABG Base Excess ABG Oxyhemoglobin ABG Sodium ABG Chloride ABG Glucose Oxyhemoglobin Carboxyhemoglobin Sodium Potassium Chloride Carbon Dioxide BUN Creatinine Glucose POC Glucose 174 H 306 H 210 H Hemoglobin A1c Magnesium Ferritin AST ALT Alkaline Phosphatase Lactate Dehydrogenase C-Reactive Protein Total Protein Albumin Arterial Blood Glucose Coronavirus (PCR) 06/10/21 06/11/21 06/11/21 21:45 09:38 09:38 WBC MCH MCHC RDW 20.9 H Lymph % (Auto) [place] % (Auto) Eos % (Auto) Lymph # (Auto) [place] # (Auto) Eos # (Auto) Baso # (Auto) Seg Neutrophils % Seg Neuts % (Manual) Lymphocytes % (Manual) Seg Neutrophils # Seg Neutrophils # Man Lymphocytes # (Manual) D-Dimer ABG pH POC ABG pCO2 POC ABG pO2 ABG pO2 ABG HCO3 ABG O2 Saturation ABG Base Excess ABG Oxyhemoglobin ABG Sodium ABG Chloride ABG Glucose Oxyhemoglobin Carboxyhemoglobin Sodium 135 L Potassium Chloride 90.8 L Carbon Dioxide 36 H BUN 29 H Creatinine 0.2 L Glucose 258 H POC Glucose 262 H Hemoglobin A1c Magnesium Ferritin AST ALT Alkaline Phosphatase Lactate Dehydrogenase C-Reactive Protein Total Protein Albumin Arterial Blood Glucose Coronavirus (PCR) 06/11/21 06/11/21 06/11/21 11:20 15:49 22:57 WBC MCH MCHC RDW Lymph % (Auto) [place] % (Auto) Eos % (Auto) Lymph # (Auto) [place] # (Auto) Eos # (Auto) Baso # (Auto) Seg Neutrophils % Seg Neuts % (Manual) Lymphocytes % (Manual) Seg Neutrophils # Seg Neutrophils # Man Lymphocytes # (Manual) D-Dimer ABG pH POC ABG pCO2 POC ABG pO2 ABG pO2 ABG HCO3 ABG O2 Saturation ABG Base Excess ABG Oxyhemoglobin ABG Sodium ABG Chloride ABG Glucose Oxyhemoglobin Carboxyhemoglobin Sodium Potassium Chloride Carbon Dioxide BUN Creatinine Glucose POC Glucose 269 H 206 H 211 H Hemoglobin A1c Magnesium Ferritin AST ALT Alkaline Phosphatase Lactate Dehydrogenase C-Reactive Protein Total Protein Albumin Arterial Blood Glucose Coronavirus (PCR) 06/12/21 06/12/21 06/12/21 08:07 11:24 18:08 WBC MCH MCHC RDW Lymph % (Auto) [place] % (Auto) Eos % (Auto) Lymph # (Auto) [place] # (Auto) Eos # (Auto) Baso # (Auto) Seg Neutrophils % Seg Neuts % (Manual) Lymphocytes % (Manual) Seg Neutrophils # Seg Neutrophils # Man Lymphocytes # (Manual) D-Dimer ABG pH POC ABG pCO2 POC ABG pO2 ABG pO2 ABG HCO3 ABG O2 Saturation ABG Base Excess ABG Oxyhemoglobin ABG Sodium ABG Chloride ABG Glucose Oxyhemoglobin Carboxyhemoglobin Sodium Potassium Chloride Carbon Dioxide BUN Creatinine Glucose POC Glucose 149 H 270 H 166 H Hemoglobin A1c Magnesium Ferritin AST ALT Alkaline Phosphatase Lactate Dehydrogenase C-Reactive Protein Total Protein Albumin Arterial Blood Glucose Coronavirus (PCR) 06/12/21 06/13/21 06/13/21 20:22 07:50 11:18 WBC MCH MCHC RDW Lymph % (Auto) [place] % (Auto) Eos % (Auto) Lymph # (Auto) [place] # (Auto) Eos # (Auto) Baso # (Auto) Seg Neutrophils % Seg Neuts % (Manual) Lymphocytes % (Manual) Seg Neutrophils # Seg Neutrophils # Man Lymphocytes # (Manual) D-Dimer ABG pH POC ABG pCO2 POC ABG pO2 ABG pO2 ABG HCO3 ABG O2 Saturation ABG Base Excess ABG Oxyhemoglobin ABG Sodium ABG Chloride ABG Glucose Oxyhemoglobin Carboxyhemoglobin Sodium Potassium Chloride Carbon Dioxide BUN Creatinine Glucose POC Glucose 155 H 163 H 293 H Hemoglobin A1c Magnesium Ferritin AST ALT Alkaline Phosphatase Lactate Dehydrogenase C-Reactive Protein Total Protein Albumin Arterial Blood Glucose Coronavirus (PCR) 06/13/21 06/13/21 06/14/21 16:41 21:00 07:41 WBC MCH MCHC RDW Lymph % (Auto) [place] % (Auto) Eos % (Auto) Lymph # (Auto) [place] # (Auto) Eos # (Auto) Baso # (Auto) Seg Neutrophils % Seg Neuts % (Manual) Lymphocytes % (Manual) Seg Neutrophils # Seg Neutrophils # Man Lymphocytes # (Manual) D-Dimer ABG pH POC ABG pCO2 POC ABG pO2 ABG pO2 ABG HCO3 ABG O2 Saturation ABG Base Excess ABG Oxyhemoglobin ABG Sodium ABG Chloride ABG Glucose Oxyhemoglobin Carboxyhemoglobin Sodium Potassium Chloride Carbon Dioxide BUN Creatinine Glucose POC Glucose 232 H 183 H 52 L Hemoglobin A1c Magnesium Ferritin AST ALT Alkaline Phosphatase Lactate Dehydrogenase C-Reactive Protein Total Protein Albumin Arterial Blood Glucose Coronavirus (PCR) 06/14/21 06/14/21 06/14/21 11:44 17:44 21:44 WBC MCH MCHC RDW Lymph % (Auto) [place] % (Auto) Eos % (Auto) Lymph # (Auto) [place] # (Auto) Eos # (Auto) Baso # (Auto) Seg Neutrophils % Seg Neuts % (Manual) Lymphocytes % (Manual) Seg Neutrophils # Seg Neutrophils # Man Lymphocytes # (Manual) D-Dimer ABG pH POC ABG pCO2 POC ABG pO2 ABG pO2 ABG HCO3 ABG O2 Saturation ABG Base Excess ABG Oxyhemoglobin ABG Sodium ABG Chloride ABG Glucose Oxyhemoglobin Carboxyhemoglobin Sodium Potassium Chloride Carbon Dioxide BUN Creatinine Glucose POC Glucose 205 H 293 H 288 H Hemoglobin A1c Magnesium Ferritin AST ALT Alkaline Phosphatase Lactate Dehydrogenase C-Reactive Protein Total Protein Albumin Arterial Blood Glucose Coronavirus (PCR) 06/15/21 06/15/21 06/15/21 08:00 08:00 11:40 WBC MCH 33 H MCHC 35 H RDW 20.3 H Lymph % (Auto) [place] % (Auto) Eos % (Auto) Lymph # (Auto) [place] # (Auto) Eos # (Auto) Baso # (Auto) Seg Neutrophils % Seg Neuts % (Manual) Lymphocytes % (Manual) Seg Neutrophils # Seg Neutrophils # Man Lymphocytes # (Manual) D-Dimer ABG pH POC ABG pCO2 POC ABG pO2 ABG pO2 ABG HCO3 ABG O2 Saturation ABG Base Excess ABG Oxyhemoglobin ABG Sodium ABG Chloride ABG Glucose Oxyhemoglobin Carboxyhemoglobin Sodium Potassium 3.2 L Chloride 95.3 L Carbon Dioxide 32 H BUN 23 H Creatinine 0.2 L Glucose 103 H POC Glucose 204 H Hemoglobin A1c Magnesium Ferritin AST ALT Alkaline Phosphatase Lactate Dehydrogenase C-Reactive Protein Total Protein Albumin Arterial Blood Glucose Coronavirus (PCR) 06/15/21 06/15/21 06/16/21 16:17 22:00 11:43 WBC MCH MCHC RDW Lymph % (Auto) [place] % (Auto) Eos % (Auto) Lymph # (Auto) [place] # (Auto) Eos # (Auto) Baso # (Auto) Seg Neutrophils % Seg Neuts % (Manual) Lymphocytes % (Manual) Seg Neutrophils # Seg Neutrophils # Man Lymphocytes # (Manual) D-Dimer ABG pH POC ABG pCO2 POC ABG pO2 ABG pO2 ABG HCO3 ABG O2 Saturation ABG Base Excess ABG Oxyhemoglobin ABG Sodium ABG Chloride ABG Glucose Oxyhemoglobin Carboxyhemoglobin Sodium Potassium Chloride Carbon Dioxide BUN Creatinine Glucose POC Glucose 295 H 233 H 201 H Hemoglobin A1c Magnesium Ferritin AST ALT Alkaline Phosphatase Lactate Dehydrogenase C-Reactive Protein Total Protein Albumin Arterial Blood Glucose Coronavirus (PCR) 06/16/21 06/16/21 06/17/21 17:21 21:27 07:12 WBC MCH MCHC RDW Lymph % (Auto) [place] % (Auto) Eos % (Auto) Lymph # (Auto) [place] # (Auto) Eos # (Auto) Baso # (Auto) Seg Neutrophils % Seg Neuts % (Manual) Lymphocytes % (Manual) Seg Neutrophils # Seg Neutrophils # Man Lymphocytes # (Manual) D-Dimer ABG pH POC ABG pCO2 POC ABG pO2 ABG pO2 ABG HCO3 ABG O2 Saturation ABG Base Excess ABG Oxyhemoglobin ABG Sodium ABG Chloride ABG Glucose Oxyhemoglobin Carboxyhemoglobin Sodium Potassium Chloride Carbon Dioxide BUN Creatinine Glucose POC Glucose 299 H 290 H 67 L Hemoglobin A1c Magnesium Ferritin AST ALT Alkaline Phosphatase Lactate Dehydrogenase C-Reactive Protein Total Protein Albumin Arterial Blood Glucose Coronavirus (PCR) 06/17/21 06/17/21 06/17/21 11:53 17:02 22:25 WBC MCH MCHC RDW Lymph % (Auto) [place] % (Auto) Eos % (Auto) Lymph # (Auto) [place] # (Auto) Eos # (Auto) Baso # (Auto) Seg Neutrophils % Seg Neuts % (Manual) Lymphocytes % (Manual) Seg Neutrophils # Seg Neutrophils # Man Lymphocytes # (Manual) D-Dimer ABG pH POC ABG pCO2 POC ABG pO2 ABG pO2 ABG HCO3 ABG O2 Saturation ABG Base Excess ABG Oxyhemoglobin ABG Sodium ABG Chloride ABG Glucose Oxyhemoglobin Carboxyhemoglobin Sodium Potassium Chloride Carbon Dioxide BUN Creatinine Glucose POC Glucose 199 H 362 H 235 H Hemoglobin A1c Magnesium Ferritin AST ALT Alkaline Phosphatase Lactate Dehydrogenase C-Reactive Protein Total Protein Albumin Arterial Blood Glucose Coronavirus (PCR) 06/18/21 06/18/21 06/18/21 08:00 11:48 16:40 WBC MCH MCHC RDW Lymph % (Auto) [place] % (Auto) Eos % (Auto) Lymph # (Auto) [place] # (Auto) Eos # (Auto) Baso # (Auto) Seg Neutrophils % Seg Neuts % (Manual) Lymphocytes % (Manual) Seg Neutrophils # Seg Neutrophils # Man Lymphocytes # (Manual) D-Dimer ABG pH POC ABG pCO2 POC ABG pO2 ABG pO2 ABG HCO3 ABG O2 Saturation ABG Base Excess ABG Oxyhemoglobin ABG Sodium ABG Chloride ABG Glucose Oxyhemoglobin Carboxyhemoglobin Sodium Potassium Chloride Carbon Dioxide BUN Creatinine Glucose POC Glucose 62 L 211 H 305 H Hemoglobin A1c Magnesium Ferritin AST ALT Alkaline Phosphatase Lactate Dehydrogenase C-Reactive Protein Total Protein Albumin Arterial Blood Glucose Coronavirus (PCR) 06/18/21 06/19/21 06/19/21 21:26 07:27 11:32 WBC MCH MCHC RDW Lymph % (Auto) [place] % (Auto) Eos % (Auto) Lymph # (Auto) [place] # (Auto) Eos # (Auto) Baso # (Auto) Seg Neutrophils % Seg Neuts % (Manual) Lymphocytes % (Manual) Seg Neutrophils # Seg Neutrophils # Man Lymphocytes # (Manual) D-Dimer ABG pH POC ABG pCO2 POC ABG pO2 ABG pO2 ABG HCO3 ABG O2 Saturation ABG Base Excess ABG Oxyhemoglobin ABG Sodium ABG Chloride ABG Glucose Oxyhemoglobin Carboxyhemoglobin Sodium Potassium Chloride Carbon Dioxide BUN Creatinine Glucose POC Glucose 149 H 60 L 208 H Hemoglobin A1c Magnesium Ferritin AST ALT Alkaline Phosphatase Lactate Dehydrogenase C-Reactive Protein Total Protein Albumin Arterial Blood Glucose Coronavirus (PCR) 06/19/21 06/19/21 06/20/21 16:06 22:28 07:48 WBC MCH MCHC RDW Lymph % (Auto) [place] % (Auto) Eos % (Auto) Lymph # (Auto) [place] # (Auto) Eos # (Auto) Baso # (Auto) Seg Neutrophils % Seg Neuts % (Manual) Lymphocytes % (Manual) Seg Neutrophils # Seg Neutrophils # Man Lymphocytes # (Manual) D-Dimer ABG pH POC ABG pCO2 POC ABG pO2 ABG pO2 ABG HCO3 ABG O2 Saturation ABG Base Excess ABG Oxyhemoglobin ABG Sodium ABG Chloride ABG Glucose Oxyhemoglobin Carboxyhemoglobin Sodium Potassium Chloride Carbon Dioxide BUN Creatinine Glucose POC Glucose 266 H 166 H 58 L Hemoglobin A1c Magnesium Ferritin AST ALT Alkaline Phosphatase Lactate Dehydrogenase C-Reactive Protein Total Protein Albumin Arterial Blood Glucose Coronavirus (PCR) 06/20/21 06/20/21 06/20/21 09:09 11:04 16:01 WBC MCH MCHC RDW Lymph % (Auto) [place] % (Auto) Eos % (Auto) Lymph # (Auto) [place] # (Auto) Eos # (Auto) Baso # (Auto) Seg Neutrophils % Seg Neuts % (Manual) Lymphocytes % (Manual) Seg Neutrophils # Seg Neutrophils # Man Lymphocytes # (Manual) D-Dimer ABG pH POC ABG pCO2 POC ABG pO2 ABG pO2 ABG HCO3 ABG O2 Saturation ABG Base Excess ABG Oxyhemoglobin ABG Sodium ABG Chloride ABG Glucose Oxyhemoglobin Carboxyhemoglobin Sodium Potassium Chloride Carbon Dioxide BUN Creatinine Glucose POC Glucose 146 H 225 H 330 H Hemoglobin A1c Magnesium Ferritin AST ALT Alkaline Phosphatase Lactate Dehydrogenase C-Reactive Protein Total Protein Albumin Arterial Blood Glucose Coronavirus (PCR) 06/20/21 06/21/21 06/21/21 20:46 06:45 06:45 WBC MCH MCHC RDW 20.0 H Lymph % (Auto) [place] % (Auto) Eos % (Auto) Lymph # (Auto) [place] # (Auto) Eos # (Auto) Baso # (Auto) Seg Neutrophils % Seg Neuts % (Manual) Lymphocytes % (Manual) Seg Neutrophils # Seg Neutrophils # Man Lymphocytes # (Manual) D-Dimer ABG pH POC ABG pCO2 POC ABG pO2 ABG pO2 ABG HCO3 ABG O2 Saturation ABG Base Excess ABG Oxyhemoglobin ABG Sodium ABG Chloride ABG Glucose Oxyhemoglobin Carboxyhemoglobin Sodium Potassium 2.9 L* Chloride 95.0 L Carbon Dioxide 31 H BUN 23 H Creatinine 0.2 L Glucose 45 L POC Glucose 215 H Hemoglobin A1c Magnesium Ferritin AST ALT Alkaline Phosphatase Lactate Dehydrogenase C-Reactive Protein Total Protein Albumin Arterial Blood Glucose Coronavirus (PCR) 06/21/21 06/21/21 06/21/21 07:38 09:06 12:40 WBC MCH MCHC RDW Lymph % (Auto) [place] % (Auto) Eos % (Auto) Lymph # (Auto) [place] # (Auto) Eos # (Auto) Baso # (Auto) Seg Neutrophils % Seg Neuts % (Manual) Lymphocytes % (Manual) Seg Neutrophils # Seg Neutrophils # Man Lymphocytes # (Manual) D-Dimer ABG pH POC ABG pCO2 POC ABG pO2 ABG pO2 ABG HCO3 ABG O2 Saturation ABG Base Excess ABG Oxyhemoglobin ABG Sodium ABG Chloride ABG Glucose Oxyhemoglobin Carboxyhemoglobin Sodium Potassium Chloride Carbon Dioxide BUN Creatinine Glucose POC Glucose 50 L 196 H 205 H Hemoglobin A1c Magnesium Ferritin AST ALT Alkaline Phosphatase Lactate Dehydrogenase C-Reactive Protein Total Protein Albumin Arterial Blood Glucose Coronavirus (PCR) 06/21/21 06/22/21 06/22/21 21:36 06:25 07:15 WBC MCH MCHC RDW Lymph % (Auto) [place] % (Auto) Eos % (Auto) Lymph # (Auto) [place] # (Auto) Eos # (Auto) Baso # (Auto) Seg Neutrophils % Seg Neuts % (Manual) Lymphocytes % (Manual) Seg Neutrophils # Seg Neutrophils # Man Lymphocytes # (Manual) D-Dimer ABG pH POC ABG pCO2 POC ABG pO2 ABG pO2 ABG HCO3 ABG O2 Saturation ABG Base Excess ABG Oxyhemoglobin ABG Sodium ABG Chloride ABG Glucose Oxyhemoglobin Carboxyhemoglobin Sodium Potassium Chloride Carbon Dioxide BUN 20 H Creatinine 0.2 L Glucose POC Glucose 245 H 66 L Hemoglobin A1c Magnesium Ferritin AST ALT Alkaline Phosphatase Lactate Dehydrogenase C-Reactive Protein Total Protein Albumin Arterial Blood Glucose Coronavirus (PCR) 06/22/21 06/22/21 06/22/21 11:03 16:07 22:03 WBC MCH MCHC RDW Lymph % (Auto) [place] % (Auto) Eos % (Auto) Lymph # (Auto) [place] # (Auto) Eos # (Auto) Baso # (Auto) Seg Neutrophils % Seg Neuts % (Manual) Lymphocytes % (Manual) Seg Neutrophils # Seg Neutrophils # Man Lymphocytes # (Manual) D-Dimer ABG pH POC ABG pCO2 POC ABG pO2 ABG pO2 ABG HCO3 ABG O2 Saturation ABG Base Excess ABG Oxyhemoglobin ABG Sodium ABG Chloride ABG Glucose Oxyhemoglobin Carboxyhemoglobin Sodium Potassium Chloride Carbon Dioxide BUN Creatinine Glucose POC Glucose 184 H 326 H 138 H Hemoglobin A1c Magnesium Ferritin AST ALT Alkaline Phosphatase Lactate Dehydrogenase C-Reactive Protein Total Protein Albumin Arterial Blood Glucose Coronavirus (PCR) 06/23/21 06/23/21 06/23/21 07:19 10:34 16:35 WBC MCH MCHC RDW Lymph % (Auto) [place] % (Auto) Eos % (Auto) Lymph # (Auto) [place] # (Auto) Eos # (Auto) Baso # (Auto) Seg Neutrophils % Seg Neuts % (Manual) Lymphocytes % (Manual) Seg Neutrophils # Seg Neutrophils # Man Lymphocytes # (Manual) D-Dimer ABG pH POC ABG pCO2 POC ABG pO2 ABG pO2 ABG HCO3 ABG O2 Saturation ABG Base Excess ABG Oxyhemoglobin ABG Sodium ABG Chloride ABG Glucose Oxyhemoglobin Carboxyhemoglobin Sodium Potassium Chloride Carbon Dioxide BUN Creatinine Glucose POC Glucose 69 L 218 H 326 H Hemoglobin A1c Magnesium Ferritin AST ALT Alkaline Phosphatase Lactate Dehydrogenase C-Reactive Protein Total Protein Albumin Arterial Blood Glucose Coronavirus (PCR) 06/23/21 06/24/21 06/24/21 22:44 11:41 16:54 WBC MCH MCHC RDW Lymph % (Auto) [place] % (Auto) Eos % (Auto) Lymph # (Auto) [place] # (Auto) Eos # (Auto) Baso # (Auto) Seg Neutrophils % Seg Neuts % (Manual) Lymphocytes % (Manual) Seg Neutrophils # Seg Neutrophils # Man Lymphocytes # (Manual) D-Dimer ABG pH POC ABG pCO2 POC ABG pO2 ABG pO2 ABG HCO3 ABG O2 Saturation ABG Base Excess ABG Oxyhemoglobin ABG Sodium ABG Chloride ABG Glucose Oxyhemoglobin Carboxyhemoglobin Sodium Potassium Chloride Carbon Dioxide BUN Creatinine Glucose POC Glucose 252 H 217 H 357 H Hemoglobin A1c Magnesium Ferritin AST ALT Alkaline Phosphatase Lactate Dehydrogenase C-Reactive Protein Total Protein Albumin Arterial Blood Glucose Coronavirus (PCR) 06/24/21 06/25/21 06/25/21 20:40 11:51 16:47 WBC MCH MCHC RDW Lymph % (Auto) [place] % (Auto) Eos % (Auto) Lymph # (Auto) [place] # (Auto) Eos # (Auto) Baso # (Auto) Seg Neutrophils % Seg Neuts % (Manual) Lymphocytes % (Manual) Seg Neutrophils # Seg Neutrophils # Man Lymphocytes # (Manual) D-Dimer ABG pH POC ABG pCO2 POC ABG pO2 ABG pO2 ABG HCO3 ABG O2 Saturation ABG Base Excess ABG Oxyhemoglobin ABG Sodium ABG Chloride ABG Glucose Oxyhemoglobin Carboxyhemoglobin Sodium Potassium Chloride Carbon Dioxide BUN Creatinine Glucose POC Glucose 239 H 182 H 229 H Hemoglobin A1c Magnesium Ferritin AST ALT Alkaline Phosphatase Lactate Dehydrogenase C-Reactive Protein Total Protein Albumin Arterial Blood Glucose Coronavirus (PCR) 06/25/21 06/26/21 06/26/21 22:27 07:20 12:19 WBC MCH MCHC RDW Lymph % (Auto) [place] % (Auto) Eos % (Auto) Lymph # (Auto) [place] # (Auto) Eos # (Auto) Baso # (Auto) Seg Neutrophils % Seg Neuts % (Manual) Lymphocytes % (Manual) Seg Neutrophils # Seg Neutrophils # Man Lymphocytes # (Manual) D-Dimer ABG pH POC ABG pCO2 POC ABG pO2 ABG pO2 ABG HCO3 ABG O2 Saturation ABG Base Excess ABG Oxyhemoglobin ABG Sodium ABG Chloride ABG Glucose Oxyhemoglobin Carboxyhemoglobin Sodium Potassium 3.2 L D Chloride Carbon Dioxide BUN 20 H Creatinine 0.3 L Glucose POC Glucose 209 H 273 H Hemoglobin A1c Magnesium Ferritin AST ALT 77 H Alkaline Phosphatase Lactate Dehydrogenase C-Reactive Protein Total Protein Albumin 3.3 L Arterial Blood Glucose Coronavirus (PCR) 06/26/21 06/26/21 06/27/21 16:52 20:55 07:14 WBC MCH MCHC RDW Lymph % (Auto) [place] % (Auto) Eos % (Auto) Lymph # (Auto) [place] # (Auto) Eos # (Auto) Baso # (Auto) Seg Neutrophils % Seg Neuts % (Manual) Lymphocytes % (Manual) Seg Neutrophils # Seg Neutrophils # Man Lymphocytes # (Manual) D-Dimer ABG pH POC ABG pCO2 POC ABG pO2 ABG pO2 ABG HCO3 ABG O2 Saturation ABG Base Excess ABG Oxyhemoglobin ABG Sodium ABG Chloride ABG Glucose Oxyhemoglobin Carboxyhemoglobin Sodium Potassium Chloride Carbon Dioxide 31 H BUN 19 H Creatinine 0.2 L Glucose 112 H POC Glucose 326 H 220 H Hemoglobin A1c Magnesium Ferritin AST ALT Alkaline Phosphatase Lactate Dehydrogenase C-Reactive Protein Total Protein Albumin Arterial Blood Glucose Coronavirus (PCR) 06/27/21 06/27/21 06/27/21 07:29 10:54 15:49 WBC MCH MCHC RDW Lymph % (Auto) [place] % (Auto) Eos % (Auto) Lymph # (Auto) [place] # (Auto) Eos # (Auto) Baso # (Auto) Seg Neutrophils % Seg Neuts % (Manual) Lymphocytes % (Manual) Seg Neutrophils # Seg Neutrophils # Man Lymphocytes # (Manual) D-Dimer ABG pH POC ABG pCO2 POC ABG pO2 ABG pO2 ABG HCO3 ABG O2 Saturation ABG Base Excess ABG Oxyhemoglobin ABG Sodium ABG Chloride ABG Glucose Oxyhemoglobin Carboxyhemoglobin Sodium Potassium Chloride Carbon Dioxide BUN Creatinine Glucose POC Glucose 115 H 228 H 240 H Hemoglobin A1c Magnesium Ferritin AST ALT Alkaline Phosphatase Lactate Dehydrogenase C-Reactive Protein Total Protein Albumin Arterial Blood Glucose Coronavirus (PCR) 06/28/21 06/28/21 06/28/21 05:43 05:43 07:13 WBC MCH 33 H MCHC RDW 19.8 H Lymph % (Auto) [place] % (Auto) Eos % (Auto) Lymph # (Auto) [place] # (Auto) Eos # (Auto) Baso # (Auto) Seg Neutrophils % Seg Neuts % (Manual) Lymphocytes % (Manual) Seg Neutrophils # Seg Neutrophils # Man Lymphocytes # (Manual) D-Dimer ABG pH POC ABG pCO2 POC ABG pO2 ABG pO2 ABG HCO3 ABG O2 Saturation ABG Base Excess ABG Oxyhemoglobin ABG Sodium ABG Chloride ABG Glucose Oxyhemoglobin Carboxyhemoglobin Sodium Potassium 3.3 L Chloride Carbon Dioxide BUN 22 H Creatinine 0.2 L Glucose POC Glucose 69 L Hemoglobin A1c Magnesium Ferritin AST ALT 63 H Alkaline Phosphatase Lactate Dehydrogenase C-Reactive Protein Total Protein Albumin 3.3 L Arterial Blood Glucose Coronavirus (PCR) 06/28/21 06/28/21 06/28/21 12:18 15:37 21:01 WBC MCH MCHC RDW Lymph % (Auto) [place] % (Auto) Eos % (Auto) Lymph # (Auto) [place] # (Auto) Eos # (Auto) Baso # (Auto) Seg Neutrophils % Seg Neuts % (Manual) Lymphocytes % (Manual) Seg Neutrophils # Seg Neutrophils # Man Lymphocytes # (Manual) D-Dimer ABG pH POC ABG pCO2 POC ABG pO2 ABG pO2 ABG HCO3 ABG O2 Saturation ABG Base Excess ABG Oxyhemoglobin ABG Sodium ABG Chloride ABG Glucose Oxyhemoglobin Carboxyhemoglobin Sodium Potassium Chloride Carbon Dioxide BUN Creatinine Glucose POC Glucose 154 H 201 H 191 H Hemoglobin A1c Magnesium Ferritin AST ALT Alkaline Phosphatase Lactate Dehydrogenase C-Reactive Protein Total Protein Albumin Arterial Blood Glucose Coronavirus (PCR) 06/29/21 06/29/21 06/29/21 11:55 15:47 21:06 WBC MCH MCHC RDW Lymph % (Auto) [place] % (Auto) Eos % (Auto) Lymph # (Auto) [place] # (Auto) Eos # (Auto) Baso # (Auto) Seg Neutrophils % Seg Neuts % (Manual) Lymphocytes % (Manual) Seg Neutrophils # Seg Neutrophils # Man Lymphocytes # (Manual) D-Dimer ABG pH POC ABG pCO2 POC ABG pO2 ABG pO2 ABG HCO3 ABG O2 Saturation ABG Base Excess ABG Oxyhemoglobin ABG Sodium ABG Chloride ABG Glucose Oxyhemoglobin Carboxyhemoglobin Sodium Potassium Chloride Carbon Dioxide BUN Creatinine Glucose POC Glucose 238 H 249 H 155 H Hemoglobin A1c Magnesium Ferritin AST ALT Alkaline Phosphatase Lactate Dehydrogenase C-Reactive Protein Total Protein Albumin Arterial Blood Glucose Coronavirus (PCR) 06/30/21 06/30/21 06/30/21 04:00 07:50 11:50 WBC MCH MCHC RDW Lymph % (Auto) [place] % (Auto) Eos % (Auto) Lymph # (Auto) [place] # (Auto) Eos # (Auto) Baso # (Auto) Seg Neutrophils % Seg Neuts % (Manual) Lymphocytes % (Manual) Seg Neutrophils # Seg Neutrophils # Man Lymphocytes # (Manual) D-Dimer ABG pH POC ABG pCO2 POC ABG pO2 ABG pO2 ABG HCO3 ABG O2 Saturation ABG Base Excess ABG Oxyhemoglobin ABG Sodium ABG Chloride ABG Glucose Oxyhemoglobin Carboxyhemoglobin Sodium Potassium 3.5 L Chloride Carbon Dioxide BUN 18 H Creatinine 0.3 L Glucose 111 H POC Glucose 117 H 250 H Hemoglobin A1c Magnesium Ferritin AST ALT Alkaline Phosphatase Lactate Dehydrogenase C-Reactive Protein Total Protein Albumin Arterial Blood Glucose Coronavirus (PCR) 10/06/30/21 07/01/21 16:05 21:02 07:26 WBC MCH MCHC RDW Lymph % (Auto) [place] % (Auto) Eos % (Auto) Lymph # (Auto) [place] # (Auto) Eos # (Auto) Baso # (Auto) Seg Neutrophils % Seg Neuts % (Manual) Lymphocytes % (Manual) Seg Neutrophils # Seg Neutrophils # Man Lymphocytes # (Manual) D-Dimer ABG pH POC ABG pCO2 POC ABG pO2 ABG pO2 ABG HCO3 ABG O2 Saturation ABG Base Excess ABG Oxyhemoglobin ABG Sodium ABG Chloride ABG Glucose Oxyhemoglobin Carboxyhemoglobin Sodium Potassium Chloride Carbon Dioxide BUN Creatinine Glucose POC Glucose 250 H 217 H 111 H Hemoglobin A1c Magnesium Ferritin AST ALT Alkaline Phosphatase Lactate Dehydrogenase C-Reactive Protein Total Protein Albumin Arterial Blood Glucose Coronavirus (PCR) 07/01/21 07/01/21 07/01/21 11:06 15:48 21:31 WBC MCH MCHC RDW Lymph % (Auto) [place] % (Auto) Eos % (Auto) Lymph # (Auto) [place] # (Auto) Eos # (Auto) Baso # (Auto) Seg Neutrophils % Seg Neuts % (Manual) Lymphocytes % (Manual) Seg Neutrophils # Seg Neutrophils # Man Lymphocytes # (Manual) D-Dimer ABG pH POC ABG pCO2 POC ABG pO2 ABG pO2 ABG HCO3 ABG O2 Saturation ABG Base Excess ABG Oxyhemoglobin ABG Sodium ABG Chloride ABG Glucose Oxyhemoglobin Carboxyhemoglobin Sodium Potassium Chloride Carbon Dioxide BUN Creatinine Glucose POC Glucose 229 H 239 H 199 H Hemoglobin A1c Magnesium Ferritin AST ALT Alkaline Phosphatase Lactate Dehydrogenase C-Reactive Protein Total Protein Albumin Arterial Blood Glucose Coronavirus (PCR) 07/02/21 07/02/21 07/02/21 11:50 16:44 21:49 WBC MCH MCHC RDW Lymph % (Auto) [place] % (Auto) Eos % (Auto) Lymph # (Auto) [place] # (Auto) Eos # (Auto) Baso # (Auto) Seg Neutrophils % Seg Neuts % (Manual) Lymphocytes % (Manual) Seg Neutrophils # Seg Neutrophils # Man Lymphocytes # (Manual) D-Dimer ABG pH POC ABG pCO2 POC ABG pO2 ABG pO2 ABG HCO3 ABG O2 Saturation ABG Base Excess ABG Oxyhemoglobin ABG Sodium ABG Chloride ABG Glucose Oxyhemoglobin Carboxyhemoglobin Sodium Potassium Chloride Carbon Dioxide BUN Creatinine Glucose POC Glucose 230 H 203 H 197 H Hemoglobin A1c Magnesium Ferritin AST ALT Alkaline Phosphatase Lactate Dehydrogenase C-Reactive Protein Total Protein Albumin Arterial Blood Glucose Coronavirus (PCR) 07/03/21 07/03/21 07/03/21 05:46 05:46 11:59 WBC MCH MCHC RDW 19.6 H Lymph % (Auto) [place] % (Auto) Eos % (Auto) Lymph # (Auto) [place] # (Auto) Eos # (Auto) Baso # (Auto) Seg Neutrophils % Seg Neuts % (Manual) Lymphocytes % (Manual) Seg Neutrophils # Seg Neutrophils # Man Lymphocytes # (Manual) D-Dimer ABG pH POC ABG pCO2 POC ABG pO2 ABG pO2 ABG HCO3 ABG O2 Saturation ABG Base Excess ABG Oxyhemoglobin ABG Sodium ABG Chloride ABG Glucose Oxyhemoglobin Carboxyhemoglobin Sodium Potassium 3.2 L Chloride Carbon Dioxide BUN Creatinine 0.3 L Glucose POC Glucose 145 H Hemoglobin A1c Magnesium Ferritin AST ALT Alkaline Phosphatase Lactate Dehydrogenase C-Reactive Protein Total Protein Albumin Arterial Blood Glucose Coronavirus (PCR) 07/03/21 07/03/21 07/04/21 16:40 22:00 06:35 WBC MCH MCHC RDW Lymph % (Auto) [place] % (Auto) Eos % (Auto) Lymph # (Auto) [place] # (Auto) Eos # (Auto) Baso # (Auto) Seg Neutrophils % Seg Neuts % (Manual) Lymphocytes % (Manual) Seg Neutrophils # Seg Neutrophils # Man Lymphocytes # (Manual) D-Dimer ABG pH POC ABG pCO2 POC ABG pO2 ABG pO2 ABG HCO3 ABG O2 Saturation ABG Base Excess ABG Oxyhemoglobin ABG Sodium ABG Chloride ABG Glucose Oxyhemoglobin Carboxyhemoglobin Sodium Potassium Chloride Carbon Dioxide BUN Creatinine 0.3 L Glucose 118 H POC Glucose 176 H 127 H Hemoglobin A1c Magnesium Ferritin AST ALT Alkaline Phosphatase Lactate Dehydrogenase C-Reactive Protein Total Protein Albumin Arterial Blood Glucose Coronavirus (PCR) 07/04/21 07/04/21 07/05/21 12:30 16:38 08:37 WBC MCH MCHC RDW Lymph % (Auto) [place] % (Auto) Eos % (Auto) Lymph # (Auto) [place] # (Auto) Eos # (Auto) Baso # (Auto) Seg Neutrophils % Seg Neuts % (Manual) Lymphocytes % (Manual) Seg Neutrophils # Seg Neutrophils # Man Lymphocytes # (Manual) D-Dimer ABG pH POC ABG pCO2 POC ABG pO2 ABG pO2 ABG HCO3 ABG O2 Saturation ABG Base Excess ABG Oxyhemoglobin ABG Sodium ABG Chloride ABG Glucose Oxyhemoglobin Carboxyhemoglobin Sodium Potassium Chloride Carbon Dioxide BUN Creatinine Glucose POC Glucose 162 H 205 H 115 H Hemoglobin A1c Magnesium Ferritin AST ALT Alkaline Phosphatase Lactate Dehydrogenase C-Reactive Protein Total Protein Albumin Arterial Blood Glucose Coronavirus (PCR) 07/05/21 07/05/21 07/05/21 10:57 16:42 21:14 WBC MCH MCHC RDW Lymph % (Auto) [place] % (Auto) Eos % (Auto) Lymph # (Auto) [place] # (Auto) Eos # (Auto) Baso # (Auto) Seg Neutrophils % Seg Neuts % (Manual) Lymphocytes % (Manual) Seg Neutrophils # Seg Neutrophils # Man Lymphocytes # (Manual) D-Dimer ABG pH POC ABG pCO2 POC ABG pO2 ABG pO2 ABG HCO3 ABG O2 Saturation ABG Base Excess ABG Oxyhemoglobin ABG Sodium ABG Chloride ABG Glucose Oxyhemoglobin Carboxyhemoglobin Sodium Potassium Chloride Carbon Dioxide BUN Creatinine Glucose POC Glucose 151 H 184 H 130 H Hemoglobin A1c Magnesium Ferritin AST ALT Alkaline Phosphatase Lactate Dehydrogenase C-Reactive Protein Total Protein Albumin Arterial Blood Glucose Coronavirus (PCR) 07/06/21 07/06/21 07/06/21 07:31 11:49 16:46 WBC MCH MCHC RDW Lymph % (Auto) [place] % (Auto) Eos % (Auto) Lymph # (Auto) [place] # (Auto) Eos # (Auto) Baso # (Auto) Seg Neutrophils % Seg Neuts % (Manual) Lymphocytes % (Manual) Seg Neutrophils # Seg Neutrophils # Man Lymphocytes # (Manual) D-Dimer ABG pH POC ABG pCO2 POC ABG pO2 ABG pO2 ABG HCO3 ABG O2 Saturation ABG Base Excess ABG Oxyhemoglobin ABG Sodium ABG Chloride ABG Glucose Oxyhemoglobin Carboxyhemoglobin Sodium Potassium Chloride Carbon Dioxide BUN Creatinine Glucose POC Glucose 106 H 173 H 205 H Hemoglobin A1c Magnesium Ferritin AST ALT Alkaline Phosphatase Lactate Dehydrogenase C-Reactive Protein Total Protein Albumin Arterial Blood Glucose Coronavirus (PCR) 07/06/21 07/07/21 07/07/21 21:38 06:00 06:00 WBC 16.1 H MCH MCHC RDW 18.8 H Lymph % (Auto) [place] % (Auto) Eos % (Auto) Lymph # (Auto) [place] # (Auto) 1.1 H Eos # (Auto) Baso # (Auto) 0.2 H Seg Neutrophils % 74.9 H Seg Neuts % (Manual) Lymphocytes % (Manual) Seg Neutrophils # 12.1 H Seg Neutrophils # Man Lymphocytes # (Manual) D-Dimer ABG pH POC ABG pCO2 POC ABG pO2 ABG pO2 ABG HCO3 ABG O2 Saturation ABG Base Excess ABG Oxyhemoglobin ABG Sodium ABG Chloride ABG Glucose Oxyhemoglobin Carboxyhemoglobin Sodium Potassium 3.5 L D Chloride Carbon Dioxide BUN 6 L Creatinine < 0.2 L Glucose 106 H POC Glucose 120 H Hemoglobin A1c Magnesium Ferritin AST ALT Alkaline Phosphatase Lactate Dehydrogenase C-Reactive Protein Total Protein Albumin Arterial Blood Glucose Coronavirus (PCR) 07/07/21 07/07/21 07/07/21 07:10 11:53 15:53 WBC MCH MCHC RDW Lymph % (Auto) [place] % (Auto) Eos % (Auto) Lymph # (Auto) [place] # (Auto) Eos # (Auto) Baso # (Auto) Seg Neutrophils % Seg Neuts % (Manual) Lymphocytes % (Manual) Seg Neutrophils # Seg Neutrophils # Man Lymphocytes # (Manual) D-Dimer ABG pH POC ABG pCO2 POC ABG pO2 ABG pO2 ABG HCO3 ABG O2 Saturation ABG Base Excess ABG Oxyhemoglobin ABG Sodium ABG Chloride ABG Glucose Oxyhemoglobin Carboxyhemoglobin Sodium Potassium Chloride Carbon Dioxide BUN Creatinine Glucose POC Glucose 132 H 169 H 242 H Hemoglobin A1c Magnesium Ferritin AST ALT Alkaline Phosphatase Lactate Dehydrogenase C-Reactive Protein Total Protein Albumin Arterial Blood Glucose Coronavirus (PCR) 07/07/21 07/08/21 07/08/21 21:41 08:09 12:20 WBC MCH MCHC RDW Lymph % (Auto) [place] % (Auto) Eos % (Auto) Lymph # (Auto) [place] # (Auto) Eos # (Auto) Baso # (Auto) Seg Neutrophils % Seg Neuts % (Manual) Lymphocytes % (Manual) Seg Neutrophils # Seg Neutrophils # Man Lymphocytes # (Manual) D-Dimer ABG pH POC ABG pCO2 POC ABG pO2 ABG pO2 ABG HCO3 ABG O2 Saturation ABG Base Excess ABG Oxyhemoglobin ABG Sodium ABG Chloride ABG Glucose Oxyhemoglobin Carboxyhemoglobin Sodium Potassium Chloride Carbon Dioxide BUN Creatinine Glucose POC Glucose 128 H 132 H 179 H Hemoglobin A1c Magnesium Ferritin AST ALT Alkaline Phosphatase Lactate Dehydrogenase C-Reactive Protein Total Protein Albumin Arterial Blood Glucose Coronavirus (PCR) 07/08/21 07/08/21 07/08/21 16:37 21:45 22:44 WBC MCH MCHC RDW Lymph % (Auto) [place] % (Auto) Eos % (Auto) Lymph # (Auto) [place] # (Auto) Eos # (Auto) Baso # (Auto) Seg Neutrophils % Seg Neuts % (Manual) Lymphocytes % (Manual) Seg Neutrophils # Seg Neutrophils # Man Lymphocytes # (Manual) D-Dimer ABG pH POC ABG pCO2 POC ABG pO2 ABG pO2 ABG HCO3 ABG O2 Saturation ABG Base Excess ABG Oxyhemoglobin ABG Sodium ABG Chloride ABG Glucose Oxyhemoglobin Carboxyhemoglobin Sodium Potassium Chloride Carbon Dioxide BUN Creatinine Glucose POC Glucose 192 H 51 L 137 H Hemoglobin A1c Magnesium Ferritin AST ALT Alkaline Phosphatase Lactate Dehydrogenase C-Reactive Protein Total Protein Albumin Arterial Blood Glucose Coronavirus (PCR) 07/09/21 07/09/21 07/09/21 04:45 04:45 04:45 WBC MCH MCHC RDW 18.3 H Lymph % (Auto) [place] % (Auto) Eos % (Auto) Lymph # (Auto) [place] # (Auto) Eos # (Auto) Baso # (Auto) Seg Neutrophils % Seg Neuts % (Manual) 82.0 H Lymphocytes % (Manual) 13.0 L Seg Neutrophils # Seg Neutrophils # Man 7.8 H Lymphocytes # (Manual) D-Dimer 638.35 H ABG pH POC ABG pCO2 POC ABG pO2 ABG pO2 ABG HCO3 ABG O2 Saturation ABG Base Excess ABG Oxyhemoglobin ABG Sodium ABG Chloride ABG Glucose Oxyhemoglobin Carboxyhemoglobin Sodium Potassium Chloride 96.9 L Carbon Dioxide 35 H BUN Creatinine 0.2 L Glucose 135 H POC Glucose Hemoglobin A1c Magnesium Ferritin AST ALT Alkaline Phosphatase Lactate Dehydrogenase C-Reactive Protein 4.30 H Total Protein Albumin Arterial Blood Glucose Coronavirus (PCR) 07/09/21 07/09/21 07/09/21 05:19 07:36 11:16 WBC MCH MCHC RDW Lymph % (Auto) [place] % (Auto) Eos % (Auto) Lymph # (Auto) [place] # (Auto) Eos # (Auto) Baso # (Auto) Seg Neutrophils % Seg Neuts % (Manual) Lymphocytes % (Manual) Seg Neutrophils # Seg Neutrophils # Man Lymphocytes # (Manual) D-Dimer ABG pH POC ABG pCO2 POC ABG pO2 ABG pO2 ABG HCO3 ABG O2 Saturation ABG Base Excess ABG Oxyhemoglobin ABG Sodium ABG Chloride ABG Glucose Oxyhemoglobin Carboxyhemoglobin Sodium Potassium Chloride Carbon Dioxide BUN Creatinine Glucose POC Glucose 135 H 148 H 212 H Hemoglobin A1c Magnesium Ferritin AST ALT Alkaline Phosphatase Lactate Dehydrogenase C-Reactive Protein Total Protein Albumin Arterial Blood Glucose Coronavirus (PCR) 07/09/21 07/09/21 07/10/21 15:21 21:12 05:40 WBC MCH MCHC RDW Lymph % (Auto) [place] % (Auto) Eos % (Auto) Lymph # (Auto) [place] # (Auto) Eos # (Auto) Baso # (Auto) Seg Neutrophils % Seg Neuts % (Manual) Lymphocytes % (Manual) Seg Neutrophils # Seg Neutrophils # Man Lymphocytes # (Manual) D-Dimer ABG pH POC ABG pCO2 POC ABG pO2 ABG pO2 ABG HCO3 ABG O2 Saturation ABG Base Excess ABG Oxyhemoglobin ABG Sodium ABG Chloride ABG Glucose Oxyhemoglobin Carboxyhemoglobin Sodium Potassium 3.3 L Chloride 95.1 L Carbon Dioxide 39 H BUN Creatinine 0.2 L Glucose 122 H POC Glucose 128 H 196 H Hemoglobin A1c Magnesium Ferritin AST ALT Alkaline Phosphatase Lactate Dehydrogenase C-Reactive Protein Total Protein Albumin Arterial Blood Glucose Coronavirus (PCR) 07/10/21 07/10/21 07/10/21 07:38 11:15 16:29 WBC MCH MCHC RDW Lymph % (Auto) [place] % (Auto) Eos % (Auto) Lymph # (Auto) [place] # (Auto) Eos # (Auto) Baso # (Auto) Seg Neutrophils % Seg Neuts % (Manual) Lymphocytes % (Manual) Seg Neutrophils # Seg Neutrophils # Man Lymphocytes # (Manual) D-Dimer ABG pH POC ABG pCO2 POC ABG pO2 ABG pO2 ABG HCO3 ABG O2 Saturation ABG Base Excess ABG Oxyhemoglobin ABG Sodium ABG Chloride ABG Glucose Oxyhemoglobin Carboxyhemoglobin Sodium Potassium Chloride Carbon Dioxide BUN Creatinine Glucose POC Glucose 128 H 175 H 174 H Hemoglobin A1c Magnesium Ferritin AST ALT Alkaline Phosphatase Lactate Dehydrogenase C-Reactive Protein Total Protein Albumin Arterial Blood Glucose Coronavirus (PCR) 07/10/21 07/11/21 07/11/21 20:49 05:50 12:08 WBC MCH MCHC RDW Lymph % (Auto) [place] % (Auto) Eos % (Auto) Lymph # (Auto) [place] # (Auto) Eos # (Auto) Baso # (Auto) Seg Neutrophils % Seg Neuts % (Manual) Lymphocytes % (Manual) Seg Neutrophils # Seg Neutrophils # Man Lymphocytes # (Manual) D-Dimer ABG pH POC ABG pCO2 POC ABG pO2 ABG pO2 ABG HCO3 ABG O2 Saturation ABG Base Excess ABG Oxyhemoglobin ABG Sodium ABG Chloride ABG Glucose Oxyhemoglobin Carboxyhemoglobin Sodium Potassium Chloride 97.3 L Carbon Dioxide 34 H BUN Creatinine 0.2 L Glucose 109 H POC Glucose 142 H 220 H Hemoglobin A1c Magnesium Ferritin AST ALT Alkaline Phosphatase Lactate Dehydrogenase C-Reactive Protein Total Protein Albumin Arterial Blood Glucose Coronavirus (PCR) 07/11/21 07/11/21 07/12/21 17:09 21:55 07:36 WBC MCH MCHC RDW Lymph % (Auto) [place] % (Auto) Eos % (Auto) Lymph # (Auto) [place] # (Auto) Eos # (Auto) Baso # (Auto) Seg Neutrophils % Seg Neuts % (Manual) Lymphocytes % (Manual) Seg Neutrophils # Seg Neutrophils # Man Lymphocytes # (Manual) D-Dimer ABG pH POC ABG pCO2 POC ABG pO2 ABG pO2 ABG HCO3 ABG O2 Saturation ABG Base Excess ABG Oxyhemoglobin ABG Sodium ABG Chloride ABG Glucose Oxyhemoglobin Carboxyhemoglobin Sodium Potassium Chloride Carbon Dioxide BUN Creatinine Glucose POC Glucose 219 H 124 H 114 H Hemoglobin A1c Magnesium Ferritin AST ALT Alkaline Phosphatase Lactate Dehydrogenase C-Reactive Protein Total Protein Albumin Arterial Blood Glucose Coronavirus (PCR) 07/12/21 07/12/21 07/12/21 11:08 15:43 22:20 WBC MCH MCHC RDW Lymph % (Auto) [place] % (Auto) Eos % (Auto) Lymph # (Auto) [place] # (Auto) Eos # (Auto) Baso # (Auto) Seg Neutrophils % Seg Neuts % (Manual) Lymphocytes % (Manual) Seg Neutrophils # Seg Neutrophils # Man Lymphocytes # (Manual) D-Dimer ABG pH POC ABG pCO2 POC ABG pO2 ABG pO2 ABG HCO3 ABG O2 Saturation ABG Base Excess ABG Oxyhemoglobin ABG Sodium ABG Chloride ABG Glucose Oxyhemoglobin Carboxyhemoglobin Sodium Potassium Chloride Carbon Dioxide BUN Creatinine Glucose POC Glucose 195 H 276 H 189 H Hemoglobin A1c Magnesium Ferritin AST ALT Alkaline Phosphatase Lactate Dehydrogenase C-Reactive Protein Total Protein Albumin Arterial Blood Glucose Coronavirus (PCR) 07/13/21 07/13/21 07/13/21 08:01 08:08 10:17 WBC MCH MCHC RDW Lymph % (Auto) [place] % (Auto) Eos % (Auto) Lymph # (Auto) [place] # (Auto) Eos # (Auto) Baso # (Auto) Seg Neutrophils % Seg Neuts % (Manual) Lymphocytes % (Manual) Seg Neutrophils # Seg Neutrophils # Man Lymphocytes # (Manual) D-Dimer ABG pH POC ABG pCO2 POC ABG pO2 ABG pO2 ABG HCO3 ABG O2 Saturation ABG Base Excess ABG Oxyhemoglobin ABG Sodium ABG Chloride ABG Glucose Oxyhemoglobin Carboxyhemoglobin Sodium Potassium Chloride 94.4 L Carbon Dioxide 34 H BUN Creatinine 0.3 L Glucose 149 H POC Glucose 132 H 265 H Hemoglobin A1c Magnesium Ferritin AST ALT Alkaline Phosphatase Lactate Dehydrogenase C-Reactive Protein Total Protein Albumin Arterial Blood Glucose Coronavirus (PCR) 07/13/21 07/13/21 07/14/21 17:58 21:41 07:34 WBC MCH MCHC RDW Lymph % (Auto) [place] % (Auto) Eos % (Auto) Lymph # (Auto) [place] # (Auto) Eos # (Auto) Baso # (Auto) Seg Neutrophils % Seg Neuts % (Manual) Lymphocytes % (Manual) Seg Neutrophils # Seg Neutrophils # Man Lymphocytes # (Manual) D-Dimer ABG pH POC ABG pCO2 POC ABG pO2 ABG pO2 ABG HCO3 ABG O2 Saturation ABG Base Excess ABG Oxyhemoglobin ABG Sodium ABG Chloride ABG Glucose Oxyhemoglobin Carboxyhemoglobin Sodium Potassium Chloride Carbon Dioxide BUN Creatinine Glucose POC Glucose 217 H 223 H 116 H Hemoglobin A1c Magnesium Ferritin AST ALT Alkaline Phosphatase Lactate Dehydrogenase C-Reactive Protein Total Protein Albumin Arterial Blood Glucose Coronavirus (PCR) 07/14/21 07/14/21 07/14/21 10:50 17:33 20:51 WBC MCH MCHC RDW Lymph % (Auto) [place] % (Auto) Eos % (Auto) Lymph # (Auto) [place] # (Auto) Eos # (Auto) Baso # (Auto) Seg Neutrophils % Seg Neuts % (Manual) Lymphocytes % (Manual) Seg Neutrophils # Seg Neutrophils # Man Lymphocytes # (Manual) D-Dimer ABG pH POC ABG pCO2 POC ABG pO2 ABG pO2 ABG HCO3 ABG O2 Saturation ABG Base Excess ABG Oxyhemoglobin ABG Sodium ABG Chloride ABG Glucose Oxyhemoglobin Carboxyhemoglobin Sodium Potassium Chloride Carbon Dioxide BUN Creatinine Glucose POC Glucose 191 H 173 H 132 H Hemoglobin A1c Magnesium Ferritin AST ALT Alkaline Phosphatase Lactate Dehydrogenase C-Reactive Protein Total Protein Albumin Arterial Blood Glucose Coronavirus (PCR) 07/15/21 07/15/21 07/15/21 04:00 07:59 12:31 WBC MCH MCHC RDW Lymph % (Auto) [place] % (Auto) Eos % (Auto) Lymph # (Auto) [place] # (Auto) Eos # (Auto) Baso # (Auto) Seg Neutrophils % Seg Neuts % (Manual) Lymphocytes % (Manual) Seg Neutrophils # Seg Neutrophils # Man Lymphocytes # (Manual) D-Dimer ABG pH POC ABG pCO2 POC ABG pO2 ABG pO2 ABG HCO3 ABG O2 Saturation ABG Base Excess ABG Oxyhemoglobin ABG Sodium ABG Chloride ABG Glucose Oxyhemoglobin Carboxyhemoglobin Sodium Potassium Chloride 96.0 L Carbon Dioxide 32 H BUN Creatinine 0.3 L Glucose 208 H POC Glucose 117 H 195 H Hemoglobin A1c Magnesium Ferritin AST ALT Alkaline Phosphatase Lactate Dehydrogenase C-Reactive Protein Total Protein Albumin Arterial Blood Glucose Coronavirus (PCR) 07/15/21 07/15/21 07/16/21 18:00 20:57 04:40 WBC MCH MCHC RDW 17.1 H Lymph % (Auto) [place] % (Auto) Eos % (Auto) Lymph # (Auto) [place] # (Auto) Eos # (Auto) Baso # (Auto) Seg Neutrophils % Seg Neuts % (Manual) Lymphocytes % (Manual) Seg Neutrophils # Seg Neutrophils # Man Lymphocytes # (Manual) D-Dimer ABG pH POC ABG pCO2 POC ABG pO2 ABG pO2 ABG HCO3 ABG O2 Saturation ABG Base Excess ABG Oxyhemoglobin ABG Sodium ABG Chloride ABG Glucose Oxyhemoglobin Carboxyhemoglobin Sodium Potassium Chloride Carbon Dioxide BUN Creatinine Glucose POC Glucose 217 H 111 H Hemoglobin A1c Magnesium Ferritin AST ALT Alkaline Phosphatase Lactate Dehydrogenase C-Reactive Protein Total Protein Albumin Arterial Blood Glucose Coronavirus (PCR) 07/16/21 07/16/21 07/16/21 04:40 07:08 11:11 WBC MCH MCHC RDW Lymph % (Auto) [place] % (Auto) Eos % (Auto) Lymph # (Auto) [place] # (Auto) Eos # (Auto) Baso # (Auto) Seg Neutrophils % Seg Neuts % (Manual) Lymphocytes % (Manual) Seg Neutrophils # Seg Neutrophils # Man Lymphocytes # (Manual) D-Dimer ABG pH POC ABG pCO2 POC ABG pO2 ABG pO2 ABG HCO3 ABG O2 Saturation ABG Base Excess ABG Oxyhemoglobin ABG Sodium ABG Chloride ABG Glucose Oxyhemoglobin Carboxyhemoglobin Sodium Potassium 3.4 L Chloride 94.6 L Carbon Dioxide 36 H BUN Creatinine < 0.2 L Glucose 101 H POC Glucose 118 H 184 H Hemoglobin A1c Magnesium Ferritin AST ALT Alkaline Phosphatase Lactate Dehydrogenase C-Reactive Protein Total Protein Albumin Arterial Blood Glucose Coronavirus (PCR) 07/16/21 07/16/21 07/17/21 17:29 22:01 08:10 WBC MCH MCHC RDW Lymph % (Auto) [place] % (Auto) Eos % (Auto) Lymph # (Auto) [place] # (Auto) Eos # (Auto) Baso # (Auto) Seg Neutrophils % Seg Neuts % (Manual) Lymphocytes % (Manual) Seg Neutrophils # Seg Neutrophils # Man Lymphocytes # (Manual) D-Dimer ABG pH POC ABG pCO2 POC ABG pO2 ABG pO2 ABG HCO3 ABG O2 Saturation ABG Base Excess ABG Oxyhemoglobin ABG Sodium ABG Chloride ABG Glucose Oxyhemoglobin Carboxyhemoglobin Sodium Potassium Chloride Carbon Dioxide BUN Creatinine Glucose POC Glucose 200 H 147 H 118 H Hemoglobin A1c Magnesium Ferritin AST ALT Alkaline Phosphatase Lactate Dehydrogenase C-Reactive Protein Total Protein Albumin Arterial Blood Glucose Coronavirus (PCR) 07/17/21 07/17/21 07/17/21 11:38 16:24 21:13 WBC MCH MCHC RDW Lymph % (Auto) [place] % (Auto) Eos % (Auto) Lymph # (Auto) [place] # (Auto) Eos # (Auto) Baso # (Auto) Seg Neutrophils % Seg Neuts % (Manual) Lymphocytes % (Manual) Seg Neutrophils # Seg Neutrophils # Man Lymphocytes # (Manual) D-Dimer ABG pH POC ABG pCO2 POC ABG pO2 ABG pO2 ABG HCO3 ABG O2 Saturation ABG Base Excess ABG Oxyhemoglobin ABG Sodium ABG Chloride ABG Glucose Oxyhemoglobin Carboxyhemoglobin Sodium Potassium Chloride Carbon Dioxide BUN Creatinine Glucose POC Glucose 151 H 268 H 115 H Hemoglobin A1c Magnesium Ferritin AST ALT Alkaline Phosphatase Lactate Dehydrogenase C-Reactive Protein Total Protein Albumin Arterial Blood Glucose Coronavirus (PCR) 07/18/21 07/18/21 07/18/21 07:58 12:29 20:24 WBC MCH MCHC RDW Lymph % (Auto) [place] % (Auto) Eos % (Auto) Lymph # (Auto) [place] # (Auto) Eos # (Auto) Baso # (Auto) Seg Neutrophils % Seg Neuts % (Manual) Lymphocytes % (Manual) Seg Neutrophils # Seg Neutrophils # Man Lymphocytes # (Manual) D-Dimer ABG pH POC ABG pCO2 POC ABG pO2 ABG pO2 ABG HCO3 ABG O2 Saturation ABG Base Excess ABG Oxyhemoglobin ABG Sodium ABG Chloride ABG Glucose Oxyhemoglobin Carboxyhemoglobin Sodium Potassium Chloride Carbon Dioxide BUN Creatinine Glucose POC Glucose 135 H 139 H 130 H Hemoglobin A1c Magnesium Ferritin AST ALT Alkaline Phosphatase Lactate Dehydrogenase C-Reactive Protein Total Protein Albumin Arterial Blood Glucose Coronavirus (PCR) 07/19/21 07/19/21 07/19/21 06:55 06:55 07:54 WBC 14.5 H MCH MCHC RDW 17.3 H Lymph % (Auto) 9.6 L [place] % (Auto) Eos % (Auto) Lymph # (Auto) [place] # (Auto) Eos # (Auto) 0.6 H Baso # (Auto) Seg Neutrophils % 80.3 H Seg Neuts % (Manual) Lymphocytes % (Manual) Seg Neutrophils # 11.7 H Seg Neutrophils # Man Lymphocytes # (Manual) D-Dimer ABG pH POC ABG pCO2 67.9 H POC ABG pO2 131.0 H ABG pO2 ABG HCO3 ABG O2 Saturation ABG Base Excess ABG Oxyhemoglobin ABG Sodium ABG Chloride 97.0 L ABG Glucose 133 H Oxyhemoglobin Carboxyhemoglobin Sodium Potassium Chloride 95.3 L Carbon Dioxide 35 H BUN Creatinine < 0.2 L Glucose 138 H POC Glucose Hemoglobin A1c Magnesium Ferritin AST ALT Alkaline Phosphatase Lactate Dehydrogenase C-Reactive Protein Total Protein Albumin Arterial Blood Glucose 133 H Coronavirus (PCR) 07/19/21 07/19/21 07/19/21 08:10 11:43 17:04 WBC MCH MCHC RDW Lymph % (Auto) [place] % (Auto) Eos % (Auto) Lymph # (Auto) [place] # (Auto) Eos # (Auto) Baso # (Auto) Seg Neutrophils % Seg Neuts % (Manual) Lymphocytes % (Manual) Seg Neutrophils # Seg Neutrophils # Man Lymphocytes # (Manual) D-Dimer ABG pH POC ABG pCO2 POC ABG pO2 ABG pO2 ABG HCO3 ABG O2 Saturation ABG Base Excess ABG Oxyhemoglobin ABG Sodium ABG Chloride ABG Glucose Oxyhemoglobin Carboxyhemoglobin Sodium Potassium Chloride Carbon Dioxide BUN Creatinine Glucose POC Glucose 129 H 126 H 108 H Hemoglobin A1c Magnesium Ferritin AST ALT Alkaline Phosphatase Lactate Dehydrogenase C-Reactive Protein Total Protein Albumin Arterial Blood Glucose Coronavirus (PCR) 07/19/21 07/20/21 07/20/21 21:10 04:00 04:00 WBC MCH MCHC RDW 17.0 H Lymph % (Auto) [place] % (Auto) 8.9 H Eos % (Auto) 6.3 H Lymph # (Auto) [place] # (Auto) 0.9 H Eos # (Auto) 0.6 H Baso # (Auto) Seg Neutrophils % 70.2 H Seg Neuts % (Manual) Lymphocytes % (Manual) Seg Neutrophils # Seg Neutrophils # Man Lymphocytes # (Manual) D-Dimer ABG pH POC ABG pCO2 POC ABG pO2 ABG pO2 ABG HCO3 ABG O2 Saturation ABG Base Excess ABG Oxyhemoglobin ABG Sodium ABG Chloride ABG Glucose Oxyhemoglobin Carboxyhemoglobin Sodium Potassium Chloride 96.7 L Carbon Dioxide 36 H BUN Creatinine 0.2 L Glucose 102 H POC Glucose 109 H Hemoglobin A1c Magnesium Ferritin AST ALT Alkaline Phosphatase Lactate Dehydrogenase C-Reactive Protein Total Protein Albumin 3.2 L Arterial Blood Glucose Coronavirus (PCR) 07/20/21 07/20/21 07/20/21 11:15 15:34 17:01 WBC MCH MCHC RDW Lymph % (Auto) [place] % (Auto) Eos % (Auto) Lymph # (Auto) [place] # (Auto) Eos # (Auto) Baso # (Auto) Seg Neutrophils % Seg Neuts % (Manual) Lymphocytes % (Manual) Seg Neutrophils # Seg Neutrophils # Man Lymphocytes # (Manual) D-Dimer ABG pH POC ABG pCO2 POC ABG pO2 ABG pO2 ABG HCO3 ABG O2 Saturation ABG Base Excess ABG Oxyhemoglobin ABG Sodium ABG Chloride ABG Glucose Oxyhemoglobin Carboxyhemoglobin Sodium Potassium Chloride Carbon Dioxide BUN Creatinine Glucose POC Glucose 109 H 152 H 125 H Hemoglobin A1c Magnesium Ferritin AST ALT Alkaline Phosphatase Lactate Dehydrogenase C-Reactive Protein Total Protein Albumin Arterial Blood Glucose Coronavirus (PCR) 07/20/21 07/21/21 07/21/21 21:00 04:48 04:48 WBC 12.8 H MCH MCHC RDW 16.8 H Lymph % (Auto) 9.3 L [place] % (Auto) Eos % (Auto) Lymph # (Auto) [place] # (Auto) 0.9 H Eos # (Auto) Baso # (Auto) Seg Neutrophils % 81.1 H Seg Neuts % (Manual) Lymphocytes % (Manual) Seg Neutrophils # 10.4 H Seg Neutrophils # Man Lymphocytes # (Manual) D-Dimer ABG pH POC ABG pCO2 POC ABG pO2 ABG pO2 ABG HCO3 ABG O2 Saturation ABG Base Excess ABG Oxyhemoglobin ABG Sodium ABG Chloride ABG Glucose Oxyhemoglobin Carboxyhemoglobin Sodium Potassium Chloride 95.4 L Carbon Dioxide 33 H BUN 6 L Creatinine < 0.2 L Glucose 155 H POC Glucose 211 H Hemoglobin A1c Magnesium 1.60 L Ferritin AST ALT Alkaline Phosphatase Lactate Dehydrogenase C-Reactive Protein Total Protein Albumin Arterial Blood Glucose Coronavirus (PCR) 07/21/21 07/21/21 07:52 11:05 WBC MCH MCHC RDW Lymph % (Auto) [place] % (Auto) Eos % (Auto) Lymph # (Auto) [place] # (Auto) Eos # (Auto) Baso # (Auto) Seg Neutrophils % Seg Neuts % (Manual) Lymphocytes % (Manual) Seg Neutrophils # Seg Neutrophils # Man Lymphocytes # (Manual) D-Dimer ABG pH POC ABG pCO2 POC ABG pO2 ABG pO2 ABG HCO3 ABG O2 Saturation ABG Base Excess ABG Oxyhemoglobin ABG Sodium ABG Chloride ABG Glucose Oxyhemoglobin Carboxyhemoglobin Sodium Potassium Chloride Carbon Dioxide BUN Creatinine Glucose POC Glucose 116 H 207 H Hemoglobin A1c Magnesium Ferritin AST ALT Alkaline Phosphatase Lactate Dehydrogenase C-Reactive Protein Total Protein Albumin Arterial Blood Glucose Coronavirus (PCR)
--- NOTE | 2021-07-21 13:30 | Progress Note ---
Assessment and Plan Assessment and plan: #Acute hypoxic respiratory failure -[id number] transition between BiPAP and high flow nasal cannula. Possible BiPAP at night and high flow during the day. -Discontinue prednisone per pulmonology. -Pulmonology following, assistance appreciated -Referral sent for LTACH (patient stay 90 days) and rejected x3. -encouraged prone positioning -will assess need for lasix PRN #Heart failure with preserved ejection fraction -TTE: LVEF 55-60% with diastolic dysfunction -will continue to monitor for signs of fluid overload #COVID-19 infection #COVID-19 pneumonia -Continue Covid vitamins #Insulin-dependent type 2 diabetes mellitus -Continue Lantus 15 units daily and sliding scale insulin #Dysuria-resolved #Possible UTI-resolved -Urinalysis ordered 07/09, not collected -s/p Levaquin x3 days #Anxiety -Stable -Continue Xanax #DVT prophylaxis -Lovenox 40 daily #Deconditioning -Will benefit from SNF after prolonged hospital stay, Resolved issues #Sepsis secondary to COVID-19 #Iatrogenic diarrhea #Hypomagnesemia #Hyponatremia #Protein calorie malnutrition #Advanced care planning -Disease education conducted, care plan discussed, diagnoses discussed, prognosis discussed, and patient acknowledges understanding with care plan -Time: +30-minute The high probability of a clinically significant, sudden or life threatening deterioration of the [respiratory] system(s) required my full and direct attention, intervention and personal management. The aggregate critical care time was [60] minutes. This time is in addition to time spent performing reported procedures but includes the following: [x] Data Review and interpretation [x] Patient assessment and monitoring of vital signs [x] Documentation [x] Medication orders and management Disposition Plan: Continue medical management Total Time Spent with Patient (Minutes): 60 minutes History Interval history: No acute events overnight. Hospitalist Physical - Constitutional Vitals: Temp Pulse Resp BP Pulse Ox 97.9 F 99 H 45 H 125/53 95 07/21/21 12:00 07/21/21 04:35 07/21/21 09:10 07/21/21 04:00 07/21/21 08:00 General appearance: Present: no acute distress, well-nourished, obese, other (Looks tired) - EENT Eyes: Present: PERRL, EOM intact ENT: hearing intact, clear oral mucosa, dentition normal - Neck Neck: Present: supple, normal ROM - Respiratory Respiratory effort: labored Respiratory: bilateral: diminished Details: Currently transitioning back and forth between BiPAP and high flow nasal cannula - Cardiovascular Rhythm: regular Heart Sounds: Present: S1 & S2 - Extremities Extremities: no ischemia, pulses intact, pulses symmetrical, No edema, normal temperature, normal color Peripheral Pulses: within normal limits - Abdominal General gastrointestinal: soft, non-tender, non-distended, normal bowel sounds - Integumentary Integumentary: Present: clear, warm, dry - Psychiatric Psychiatric: appropriate mood/affect, memory intact, cooperative - Neurologic Neurologic: CNII-XII intact, moves all extremities Results - Labs CBC & Chem 7: 07/21/21 04:48 07/21/21 04:48 Labs: Laboratory Last Values WBC 12.8 K/mm3 (4.5-11.0) H 07/21/21 04:48 RBC 3.68 M/mm3 (3.65-5.03) 07/21/21 04:48 Hgb 11.4 gm/dl (10.1-14.3) 07/21/21 04:48 Hct 35.4 % (30.3-42.9) 07/21/21 04:48 MCV 96 fl (79-97) 07/21/21 04:48 MCH 31 pg (28-32) 07/21/21 04:48 MCHC 32 % (30-34) 07/21/21 04:48 RDW 16.8 % (13.2-15.2) H 07/21/21 04:48 Plt Count 331 K/mm3 (140-440) 07/21/21 04:48 Lymph % (Auto) 9.3 % (13.4-35.0) L 07/21/21 04:48 [place] % (Auto) 6.8 % (0.0-7.3) 07/21/21 04:48 Eos % (Auto) 2.4 % (0.0-4.3) 07/21/21 04:48 Baso % (Auto) 0.4 % (0.0-1.8) 07/21/21 04:48 Lymph # (Auto) 1.2 K/mm3 (1.2-5.4) 07/21/21 04:48 [place] # (Auto) 0.9 K/mm3 (0.0-0.8) H 07/21/21 04:48 Eos # (Auto) 0.3 K/mm3 (0.0-0.4) 07/21/21 04:48 Baso # (Auto) 0.0 K/mm3 (0.0-0.1) 07/21/21 04:48 Add Manual Diff Complete 07/09/21 04:45 Total Counted 100 07/09/21 04:45 Seg Neutrophils % 81.1 % (40.0-70.0) H 07/21/21 04:48 Seg Neuts % (Manual) 82.0 % (40.0-70.0) H 07/09/21 04:45 Band Neutrophils % 1.0 % 05/12/21 04:05 Lymphocytes % (Manual) 13.0 % (13.4-35.0) L 07/09/21 04:45 Monocytes % (Manual) 3.0 % (0.0-7.3) 07/09/21 04:45 Eosinophils % (Manual) 2.0 % (0.0-4.3) 07/09/21 04:45 Nucleated RBC % Not Reportable 07/09/21 04:45 Seg Neutrophils # 10.4 K/mm3 (1.8-7.7) H 07/21/21 04:48 Seg Neutrophils # Man 7.8 K/mm3 (1.8-7.7) H 07/09/21 04:45 Band Neutrophils # 0.0 K/mm3 07/09/21 04:45 Lymphocytes # (Manual) 1.2 K/mm3 (1.2-5.4) 07/09/21 04:45 Abs React Lymphs (Man) 0.0 K/mm3 07/09/21 04:45 Monocytes # (Manual) 0.3 K/mm3 (0.0-0.8) 07/09/21 04:45 Eosinophils # (Manual) 0.2 K/mm3 (0.0-0.4) 07/09/21 04:45 Basophils # (Manual) 0.0 K/mm3 (0.0-0.1) 07/09/21 04:45 Metamyelocytes # 0.0 K/mm3 07/09/21 04:45 Myelocytes # 0.0 K/mm3 07/09/21 04:45 Promyelocytes # 0.0 K/mm3 07/09/21 04:45 Blast Cells # 0.0 K/mm3 07/09/21 04:45 WBC Morphology Not Reportable 07/09/21 04:45 Hypersegmented Neuts Not Reportable 07/09/21 04:45 Hyposegmented Neuts Not Reportable 07/09/21 04:45 Hypogranular Neuts Not Reportable 07/09/21 04:45 Smudge Cells Not Reportable 07/09/21 04:45 Toxic Granulation Not Reportable 07/09/21 04:45 Toxic Vacuolation Not Reportable 07/09/21 04:45 Dohle Bodies Not Reportable 07/09/21 04:45 Pelger-Huet Anomaly Not Reportable 07/09/21 04:45 Janelle Rods Not Reportable 07/09/21 04:45 Platelet Estimate Consistent w auto 07/09/21 04:45 Clumped Platelets Not Reportable 07/09/21 04:45 Plt Clumps, EDTA Not Reportable 07/09/21 04:45 Large Platelets Not Reportable 07/09/21 04:45 Giant Platelets Rare 07/09/21 04:45 Platelet Satelliting Not Reportable 07/09/21 04:45 Plt Morphology Comment Not Reportable 07/09/21 04:45 RBC Morphology Not Reportable 07/09/21 04:45 Dimorphic RBCs Not Reportable 07/09/21 04:45 Polychromasia Not Reportable 07/09/21 04:45 Hypochromasia Few 07/09/21 04:45 Poikilocytosis Not Reportable 07/09/21 04:45 Anisocytosis Not Reportable 07/09/21 04:45 Microcytosis Not Reportable 07/09/21 04:45 Macrocytosis Not Reportable 07/09/21 04:45 Spherocytes Not Reportable 07/09/21 04:45 Pappenheimer Bodies Not Reportable 07/09/21 04:45 Sickle Cells Not Reportable 07/09/21 04:45 Target Cells Not Reportable 07/09/21 04:45 Tear Drop Cells Not Reportable 07/09/21 04:45 Ovalocytes Not Reportable 07/09/21 04:45 Stomatocytes 1+ 07/09/21 04:45 Helmet Cells Not Reportable 07/09/21 04:45 [place] Bodies Not Reportable 07/09/21 04:45 [place] Rings Not Reportable 07/09/21 04:45 Crow Cells Not Reportable 07/09/21 04:45 Bite Cells Not Reportable 07/09/21 04:45 Crenated Cell Not Reportable 07/09/21 04:45 Elliptocytes Not Reportable 07/09/21 04:45 Acanthocytes (Spur) Not Reportable 07/09/21 04:45 Rouleaux Not Reportable 07/09/21 04:45 Hemoglobin C Crystals Not Reportable 07/09/21 04:45 Schistocytes Not Reportable 07/09/21 04:45 Malaria parasites Not Reportable 07/09/21 04:45 Justin Bodies Not Reportable 07/09/21 04:45 Hem Pathologist Commnt No 07/09/21 04:45 D-Dimer 638.35 ng/mlDDU (0-234) H 07/09/21 04:45 ABG pH 7.369 (7.320-7.450) 07/19/21 07:54 POC ABG pCO2 67.9 mmHg (32.0-48.0) H 07/19/21 07:54 ABG pCO2 50.2 mm Hg 05/14/21 02:23 POC ABG pO2 131.0 mmHg (83-108) H 07/19/21 07:54 ABG pO2 130.3 mm Hg (80.0-90.0) H 05/14/21 02:23 POC ABG HCO3 38.3 07/19/21 07:54 ABG HCO3 30.6 mmol/L (20.0-26.0) H 05/14/21 02:23 ABG O2 Saturation 99.0 (0-100) 07/19/21 07:54 ABG O2 Content 17.9 (0.0-44) 05/14/21 02:23 POC ABG Base Excess 10.3 07/19/21 07:54 ABG Base Excess 4.9 mmol/L (-2.0-3.0) H 05/14/21 02:23 ABG Hemoglobin 13.5 (12.0-17.5) 07/19/21 07:54 ABG Oxyhemoglobin 97.9 (94-98) 07/19/21 07:54 ABG Carboxyhemoglobin 1.4 % (0.0-5.0) 05/14/21 02:23 ABG Methemoglobin 0.1 (0.0-1.5) 07/19/21 07:54 ABG Sodium 138.5 mmol/L (136.0-145.0) 07/19/21 07:54 ABG Potassium 4.3 mmol/L (3.40-4.50) 07/19/21 07:54 ABG Chloride 97.0 mmol/L (98-107) L 07/19/21 07:54 ABG Glucose 133 mg/dL (65-95) H 07/19/21 07:54 Oxyhemoglobin 96.5 % (95.0-99.0) 05/14/21 02:23 Carboxyhemoglobin 1.0 (0.5-1.5) 07/19/21 07:54 FiO2 90 % 05/14/21 02:23 FiO2 % 100.0 07/19/21 07:54 Sodium 137 mmol/L (137-145) 07/21/21 04:48 Potassium 4.0 mmol/L (3.6-5.0) 07/21/21 04:48 Chloride 95.4 mmol/L (98-107) L 07/21/21 04:48 Carbon Dioxide 33 mmol/L (22-30) H 07/21/21 04:48 Anion Gap 13 mmol/L 07/21/21 04:48 BUN 6 mg/dL (7-17) L 07/21/21 04:48 Creatinine < 0.2 mg/dL (0.6-1.2) L 07/21/21 04:48 Estimated GFR > 60 ml/min 07/21/21 04:48 BUN/Creatinine Ratio 30 % 07/21/21 04:48 Glucose 155 mg/dL (65-100) H 07/21/21 04:48 POC Glucose 207 mg/dL (70-105) H 07/21/21 11:05 Hemoglobin A1c 8.5 % (4-6) H 04/18/21 07:36 Calcium 8.9 mg/dL (8.4-10.2) 07/21/21 04:48 Phosphorus 3.30 mg/dL (2.5-4.5) 07/21/21 04:48 Magnesium 1.60 mg/dL (1.7-2.3) L 07/21/21 04:48 Ferritin 155.9 ng/mL (10.0-200.0) 07/09/21 04:45 Total Bilirubin 0.20 mg/dL (0.1-1.2) 07/20/21 04:00 AST 18 units/L (5-40) 07/20/21 04:00 ALT 40 units/L (7-56) 07/20/21 04:00 Alkaline Phosphatase 70 units/L (35-129) 07/20/21 04:00 Lactate Dehydrogenase 475 units/L (91-180) H 06/05/21 05:26 C-Reactive Protein 4.30 mg/dL (0.00-1.30) H 07/09/21 04:45 NT-Pro-B Natriuret Pep 59.45 pg/mL (0-450) 07/07/21 13:40 Total Protein 7.1 g/dL (6.3-8.2) 07/20/21 04:00 Albumin 3.2 g/dL (3.9-5) L 07/20/21 04:00 Albumin/Globulin Ratio 0.8 % 07/20/21 04:00 Triglycerides < 9 mg/dL (2-149) 05/03/21 04:30 Procalcitonin < 0.05 ng/mL (<0.15) 05/23/21 09:50 Arterial Blood Glucose 133 mg/dL (65-95) H 07/19/21 07:54 Arterial Blood Ionized Calcium 4.9 mg/dL (4.6-5.3) 05/03/21 04:49 Coronavirus (PCR) Positive (Negative) A 06/05/21 08:30 Amos/IV: Voiding Method Bedpan Active Medications - Current Medications Current Medications: Generic Name Dose Route Start Last Admin Trade Name Freq PRN Reason Stop Dose Admin Acetaminophen 650 mg 07/02/21 17:48 07/21/21 09:10 Acetaminophen 325 Mg Tab PO 650 mg Q4H PRN Administration Pain, Mild (1-3) Albuterol 2.5 mg 04/16/21 13:39 04/21/21 20:39 Albuterol 2.5 Mg/3 Ml Nebu IH 2.5 mg Q4HRT PRN Administration Shortness Of Breath Alprazolam 2 mg 07/04/21 12:00 07/21/21 09:11 Alprazolam 1 Mg Tab PO 1 mg BID TUTU Administration Ascorbic Acid 500 mg 04/24/21 10:00 07/21/21 09:11 Ascorbic Acid 500 Mg Tab PO 500 mg QDAY TUTU Administration Cholecalciferol 1,000 unit 04/17/21 10:00 07/21/21 09:11 Cholecalciferol (Vit D3) 1000 Unit (25 Mcg) Tab PO 1,000 unit QDAY TUTU Administration Enoxaparin Sodium 40 mg 05/19/21 22:00 07/20/21 22:11 Enoxaparin 40 Mg/0.4 Ml Inj SUB-Q 40 mg QDAY@2200 [facility] Administration Protocol Ibuprofen 600 mg 07/11/21 11:00 07/19/21 20:06 Ibuprofen 600 Mg Tab PO 600 mg Q6H PRN Administration Ear Pain Insulin Glargine 15 units 06/25/21 10:00 07/21/21 09:11 Insulin Glargine 100 Units/Ml SUB-Q 15 units DAILY TUTU Administration Insulin Human Lispro 0 unit 05/18/21 12:00 07/21/21 12:25 Insulin Lispro 100 Unit/Ml SUB-Q 4 unit ACHS TUTU Administration Protocol Ondansetron HCl 4 mg 04/16/21 14:00 05/30/21 10:07 Ondansetron 4 Mg/2 Ml Inj IV 4 mg Q8H PRN Administration Nausea And Vomiting Polyethylene Glycol 17 gm 07/16/21 20:00 Polyethylene Glycol 3350 17 Gm Powder PO QDAY PRN Constipation Sodium Chloride 10 ml 04/16/21 13:39 07/15/21 21:07 Sodium Chloride 0.9% 10 Ml Flush Syringe IV 10 ml PRN PRN Administration LINE FLUSH Zinc Sulfate 220 mg 04/16/21 22:00 07/21/21 09:11 Zinc Sulfate 220 Mg Cap PO 220 mg BID TUTU Administration Zolpidem Tartrate 10 mg 05/26/21 08:56 07/20/21 21:08 Zolpidem 5 Mg Tab PO 10 mg QHS PRN Administration Insomnia Nutrition/Malnutrition Assess - Dietary Evaluation Nutrition/Malnutrition Findings: Nutrition Notes Start: 04/23/21 07:41 Freq: Status: Active Protocol: Document 07/03/21 16:54 GB (Rec: 07/03/21 17:11 GB [id number]) Nutrition Notes Initial or Follow up Reassessment Current Diagnosis Respiratory Failure Other Pertinent Diagnosis oral thrush, COVID-19 pneu Current Diet consistent carbohydrate Labs/Tests 07/03: creatinine 0.3, K 3.2 Pertinent Medications Vit C, Vit D3, D5 (PRN), Prednisone, NaCl, Zn Sulfate Height 4 ft 11.84 in Weight 60.3 kg [place] Body Weight (kg) 45.09 BMI 26.1 Weight change and time frame 04/16/21: 74.843kg 05/17/21: 68.1kg 06/16/21: 60.3kg change of -14.54kg for -19.43% in 60 days. Per MD note: pt has been diuresed thorughout stay. Weight Status Overweight Subjective/Other Information MD notes 07/03: pt showing improvement, prednisone weaning down, possible weaning of O2. Last BM: 07/02 PO intake recorded at 50-100% Percent of energy/protein needs met: PO intake of meals meet 75% or greater of EEN Burn Absent Trauma Absent GI Symptoms None Food Allergy No Skin Integrity/Comment skin tear rt/lt buttocks Current % PO Good (75-100%) Minimum of two criteria No #3 Nutrition Diagnosis No nutrition diagnosis at this time Etiology respiratory failure As Evidenced by Signs and Symptoms recovering, good po, weight loss r/t diurese therapy #2 Nutrition Diagnosis Malnutrition Comments: Wt loss due to diurese for most of stay. PO intake is recorded at 75- 100% Etiology acute illness As Evidenced by Signs and Symptoms <50% EER in >5 days, >5% wt loss in 1 month Diagnosis Progress(for reassessment Resolved documentation) #1 Nutrition Diagnosis Inadequate oral intake Etiology ARF As Evidenced by Signs and Symptoms pt continues to meet 100%/93% of kcal/protein needs Diagnosis Progress(for reassessment Resolved documentation) Is patient on ventilator? No Is Patient Ambulatory and/or Out of Bed Yes REE-([place]-St. Jeor-ambulatory/OOB) [ 1491.022 [id number]] Kcal/Kg value to use for calculation 25 Approximate Energy Requirements Using 1508 kcal/Kg Calculation Used for Recommendations Kcal/kg Additional Notes Pro needs 1-1.2g/kg @ 60k -72g/day Fluid needs 1ml/kcal or per MD Nutrition Intervention Change Diet Order: continue Nutrition Support: n/a Add Supplement/Snack (indicate name/kcal n/a /protein ) Goal #1 PO intake of meals to be 75% or greater daily for LOS Goal #2 Weight to stabilize +/-3% current weight for LOS Follow-Up By: 08/07/21 Additional Comments f/u: po intake, weight
[2021-07-21] MEDS: ENOXAPARIN 40 MG/0.4 ML INJ SUB-Q SCH (21:37)
--- NOTE | 2021-07-22 08:25 | Progress Note ---
Assessment and Plan - Patient Problems (1) Pneumonia due to SARS-associated coronavirus Current Visit: Yes Status: Acute (2) Acute hypoxemic respiratory failure Current Visit: Yes Status: Acute (3) Obesity hypoventilation syndrome Current Visit: Yes Status: Acute (4) Pneumonia Current Visit: Yes Status: Acute Qualifiers: Aspiration pneumonia type: unspecified Laterality: unspecified laterality Lung location: unspecified part of lung (5) Transaminitis Current Visit: No Status: Acute (6) Oral thrush Current Visit: Yes Status: Acute Subjective Principal diagnosis: Covid-19 Interval history: awake on bipap Objective - Exam Narrative Exam: on bipap 110% 20/10 mv 18.1 Vital Signs - 12hr 07/21/21 07/21/21 07/21/21 21:00 21:41 22:00 Temperature Pulse Rate 115 H 113 H Respiratory 34 H 40 H Rate Respiratory 33 H Rate [Lower Abdomen] Blood Pressure 138/66 139/56 O2 Sat by Pulse 97 96 Oximetry 07/21/21 07/21/21 07/21/21 22:28 23:00 23:01 Temperature Pulse Rate 110 H 108 H 109 H Respiratory 32 H 34 H 32 H Rate Respiratory Rate [Lower Abdomen] Blood Pressure 139/56 125/61 139/56 O2 Sat by Pulse 98 94 98 Oximetry 07/21/21 07/22/21 07/22/21 23:59 00:00 01:00 Temperature 98.1 F Pulse Rate 106 H 98 H Respiratory 47 H 30 H Rate Respiratory Rate [Lower Abdomen] Blood Pressure 125/67 113/61 O2 Sat by Pulse 100 95 Oximetry 07/22/21 07/22/21 07/22/21 02:00 03:00 03:32 Temperature Pulse Rate 93 H 88 89 Respiratory 28 H 28 H Rate Respiratory Rate [Lower Abdomen] Blood Pressure 113/63 111/63 O2 Sat by Pulse 97 99 Oximetry 07/22/21 07/22/21 07/22/21 03:33 03:36 03:48 Temperature 98.9 F Pulse Rate 89 Respiratory 26 H 28 H Rate Respiratory Rate [Lower Abdomen] Blood Pressure 111/63 O2 Sat by Pulse 99 100 Oximetry 07/22/21 07/22/21 07/22/21 04:00 04:04 05:00 Temperature Pulse Rate 89 89 90 Respiratory 28 H 29 H 34 H Rate Respiratory Rate [Lower Abdomen] Blood Pressure 121/63 121/63 124/61 O2 Sat by Pulse 100 100 100 Oximetry 07/22/21 07/22/21 07/22/21 06:00 07:00 07:29 Temperature 97.9 F Pulse Rate 88 94 H Respiratory 28 H 34 H Rate Respiratory Rate [Lower Abdomen] Blood Pressure 124/61 122/62 O2 Sat by Pulse 100 100 Oximetry Constitutional: alert, other (on bipap) Eyes: non-icteric ENT: oropharynx moist Neck: supple Effort: normal Ascultation: Bilateral: diminished breath sounds Cardiovascular: regular rate and rhythm Gastrointestinal: normoactive bowel sounds, soft, non-tender, non-distended Integumentary: normal Extremities: no cyanosis, no edema, pink and warm Neurologic: non-focal exam, pupils equal and round CBC and BMP: 07/21/21 04:48 07/21/21 04:48 ABG, PT/INR, D-dimer: ABG ABG pH 7.369 (7.320-7.450) 07/19/21 07:54 POC ABG pCO2 67.9 mmHg (32.0-48.0) H 07/19/21 07:54 ABG pCO2 50.2 mm Hg 05/14/21 02:23 POC ABG pO2 131.0 mmHg (83-108) H 07/19/21 07:54 ABG pO2 130.3 mm Hg (80.0-90.0) H 05/14/21 02:23 POC ABG HCO3 38.3 07/19/21 07:54 ABG O2 Saturation 99.0 (0-100) 07/19/21 07:54 PT/INR, D-dimer D-Dimer 638.35 ng/mlDDU (0-234) H 07/09/21 04:45 Abnormal lab findings: Abnormal Labs 04/16/21 04/16/21 04/16/21 11:42 11:42 11:42 WBC MCH MCHC RDW 16.1 H Lymph % (Auto) 7.8 L [place] % (Auto) Eos % (Auto) Lymph # (Auto) 0.8 L [place] # (Auto) Eos # (Auto) Baso # (Auto) Seg Neutrophils % 87.7 H Seg Neuts % (Manual) Lymphocytes % (Manual) Seg Neutrophils # 8.5 H Seg Neutrophils # Man Lymphocytes # (Manual) D-Dimer 338.70 H ABG pH POC ABG pCO2 POC ABG pO2 ABG pO2 ABG HCO3 ABG O2 Saturation ABG Base Excess ABG Oxyhemoglobin ABG Sodium ABG Chloride ABG Glucose Oxyhemoglobin Carboxyhemoglobin Sodium Potassium Chloride Carbon Dioxide BUN Creatinine Glucose 194 H POC Glucose Hemoglobin A1c Magnesium Ferritin AST ALT Alkaline Phosphatase Lactate Dehydrogenase C-Reactive Protein Total Protein 8.4 H Albumin 3.8 L Arterial Blood Glucose Coronavirus (PCR) 04/16/21 04/16/21 04/17/21 11:42 11:42 03:50 WBC MCH MCHC RDW 16.0 H Lymph % (Auto) 7.7 L [place] % (Auto) Eos % (Auto) Lymph # (Auto) 0.6 L [place] # (Auto) Eos # (Auto) Baso # (Auto) Seg Neutrophils % 89.8 H Seg Neuts % (Manual) Lymphocytes % (Manual) Seg Neutrophils # Seg Neutrophils # Man Lymphocytes # (Manual) D-Dimer ABG pH POC ABG pCO2 POC ABG pO2 ABG pO2 ABG HCO3 ABG O2 Saturation ABG Base Excess ABG Oxyhemoglobin ABG Sodium ABG Chloride ABG Glucose Oxyhemoglobin Carboxyhemoglobin Sodium Potassium Chloride Carbon Dioxide BUN Creatinine Glucose 195 H POC Glucose Hemoglobin A1c Magnesium Ferritin 254.3 H AST ALT Alkaline Phosphatase Lactate Dehydrogenase 359 H C-Reactive Protein 15.20 H Total Protein Albumin Arterial Blood Glucose Coronavirus (PCR) 04/17/21 04/17/21 04/17/21 03:50 08:26 08:26 WBC MCH MCHC RDW Lymph % (Auto) [place] % (Auto) Eos % (Auto) Lymph # (Auto) [place] # (Auto) Eos # (Auto) Baso # (Auto) Seg Neutrophils % Seg Neuts % (Manual) Lymphocytes % (Manual) Seg Neutrophils # Seg Neutrophils # Man Lymphocytes # (Manual) D-Dimer 262.48 H ABG pH POC ABG pCO2 POC ABG pO2 ABG pO2 ABG HCO3 ABG O2 Saturation ABG Base Excess ABG Oxyhemoglobin ABG Sodium ABG Chloride ABG Glucose Oxyhemoglobin Carboxyhemoglobin Sodium Potassium Chloride Carbon Dioxide BUN 20 H Creatinine 0.5 L Glucose 249 H 225 H POC Glucose Hemoglobin A1c Magnesium Ferritin AST ALT Alkaline Phosphatase Lactate Dehydrogenase 338 H C-Reactive Protein 17.20 H Total Protein Albumin 3.2 L Arterial Blood Glucose Coronavirus (PCR) 04/17/21 04/17/21 04/17/21 08:26 15:04 Unknown WBC MCH MCHC RDW Lymph % (Auto) [place] % (Auto) Eos % (Auto) Lymph # (Auto) [place] # (Auto) Eos # (Auto) Baso # (Auto) Seg Neutrophils % Seg Neuts % (Manual) Lymphocytes % (Manual) Seg Neutrophils # Seg Neutrophils # Man Lymphocytes # (Manual) D-Dimer ABG pH POC ABG pCO2 POC ABG pO2 ABG pO2 ABG HCO3 ABG O2 Saturation ABG Base Excess ABG Oxyhemoglobin ABG Sodium ABG Chloride ABG Glucose Oxyhemoglobin Carboxyhemoglobin Sodium Potassium Chloride Carbon Dioxide BUN 20 H Creatinine 0.5 L Glucose 246 H POC Glucose Hemoglobin A1c Magnesium Ferritin 392.0 H AST ALT Alkaline Phosphatase Lactate Dehydrogenase C-Reactive Protein Total Protein 8.3 H Albumin 3.1 L Arterial Blood Glucose Coronavirus (PCR) Positive A 04/18/21 04/18/21 04/18/21 05:06 05:06 07:36 WBC 11.6 H MCH MCHC RDW 16.1 H Lymph % (Auto) [place] % (Auto) Eos % (Auto) Lymph # (Auto) [place] # (Auto) Eos # (Auto) Baso # (Auto) Seg Neutrophils % Seg Neuts % (Manual) Lymphocytes % (Manual) Seg Neutrophils # Seg Neutrophils # Man Lymphocytes # (Manual) D-Dimer ABG pH POC ABG pCO2 POC ABG pO2 ABG pO2 ABG HCO3 ABG O2 Saturation ABG Base Excess ABG Oxyhemoglobin ABG Sodium ABG Chloride ABG Glucose Oxyhemoglobin Carboxyhemoglobin Sodium Potassium 5.2 H Chloride Carbon Dioxide BUN 22 H Creatinine 0.5 L Glucose 315 H POC Glucose Hemoglobin A1c 8.5 H Magnesium Ferritin AST ALT Alkaline Phosphatase Lactate Dehydrogenase C-Reactive Protein Total Protein Albumin 3.3 L Arterial Blood Glucose Coronavirus (PCR) 04/18/21 04/18/21 04/18/21 11:59 16:43 23:24 WBC MCH MCHC RDW Lymph % (Auto) [place] % (Auto) Eos % (Auto) Lymph # (Auto) [place] # (Auto) Eos # (Auto) Baso # (Auto) Seg Neutrophils % Seg Neuts % (Manual) Lymphocytes % (Manual) Seg Neutrophils # Seg Neutrophils # Man Lymphocytes # (Manual) D-Dimer ABG pH POC ABG pCO2 POC ABG pO2 ABG pO2 ABG HCO3 ABG O2 Saturation ABG Base Excess ABG Oxyhemoglobin ABG Sodium ABG Chloride ABG Glucose Oxyhemoglobin Carboxyhemoglobin Sodium Potassium Chloride Carbon Dioxide BUN Creatinine Glucose POC Glucose 284 H 273 H 290 H Hemoglobin A1c Magnesium Ferritin AST ALT Alkaline Phosphatase Lactate Dehydrogenase C-Reactive Protein Total Protein Albumin Arterial Blood Glucose Coronavirus (PCR) 04/19/21 04/19/21 04/19/21 04:19 04:19 08:10 WBC MCH MCHC RDW 15.7 H Lymph % (Auto) [place] % (Auto) Eos % (Auto) Lymph # (Auto) [place] # (Auto) Eos # (Auto) Baso # (Auto) Seg Neutrophils % Seg Neuts % (Manual) Lymphocytes % (Manual) Seg Neutrophils # Seg Neutrophils # Man Lymphocytes # (Manual) D-Dimer ABG pH POC ABG pCO2 POC ABG pO2 ABG pO2 ABG HCO3 ABG O2 Saturation ABG Base Excess ABG Oxyhemoglobin ABG Sodium ABG Chloride ABG Glucose Oxyhemoglobin Carboxyhemoglobin Sodium Potassium Chloride Carbon Dioxide BUN 27 H Creatinine 0.4 L Glucose 184 H POC Glucose 194 H Hemoglobin A1c Magnesium Ferritin AST ALT Alkaline Phosphatase Lactate Dehydrogenase C-Reactive Protein Total Protein Albumin 3.1 L Arterial Blood Glucose Coronavirus (PCR) 04/19/21 04/19/21 04/19/21 11:38 16:25 22:04 WBC MCH MCHC RDW Lymph % (Auto) [place] % (Auto) Eos % (Auto) Lymph # (Auto) [place] # (Auto) Eos # (Auto) Baso # (Auto) Seg Neutrophils % Seg Neuts % (Manual) Lymphocytes % (Manual) Seg Neutrophils # Seg Neutrophils # Man Lymphocytes # (Manual) D-Dimer ABG pH POC ABG pCO2 POC ABG pO2 ABG pO2 ABG HCO3 ABG O2 Saturation ABG Base Excess ABG Oxyhemoglobin ABG Sodium ABG Chloride ABG Glucose Oxyhemoglobin Carboxyhemoglobin Sodium Potassium Chloride Carbon Dioxide BUN Creatinine Glucose POC Glucose 224 H 297 H 251 H Hemoglobin A1c Magnesium Ferritin AST ALT Alkaline Phosphatase Lactate Dehydrogenase C-Reactive Protein Total Protein Albumin Arterial Blood Glucose Coronavirus (PCR) 04/20/21 04/20/21 04/20/21 05:28 08:43 16:21 WBC MCH MCHC RDW Lymph % (Auto) [place] % (Auto) Eos % (Auto) Lymph # (Auto) [place] # (Auto) Eos # (Auto) Baso # (Auto) Seg Neutrophils % Seg Neuts % (Manual) Lymphocytes % (Manual) Seg Neutrophils # Seg Neutrophils # Man Lymphocytes # (Manual) D-Dimer ABG pH POC ABG pCO2 POC ABG pO2 ABG pO2 ABG HCO3 ABG O2 Saturation ABG Base Excess ABG Oxyhemoglobin ABG Sodium ABG Chloride ABG Glucose Oxyhemoglobin Carboxyhemoglobin Sodium Potassium Chloride Carbon Dioxide BUN 27 H Creatinine Glucose 192 H POC Glucose 173 H 253 H Hemoglobin A1c Magnesium Ferritin AST ALT Alkaline Phosphatase Lactate Dehydrogenase C-Reactive Protein Total Protein Albumin 3.0 L Arterial Blood Glucose Coronavirus (PCR) 04/21/21 04/21/21 04/21/21 07:58 12:05 16:08 WBC MCH MCHC RDW Lymph % (Auto) [place] % (Auto) Eos % (Auto) Lymph # (Auto) [place] # (Auto) Eos # (Auto) Baso # (Auto) Seg Neutrophils % Seg Neuts % (Manual) Lymphocytes % (Manual) Seg Neutrophils # Seg Neutrophils # Man Lymphocytes # (Manual) D-Dimer ABG pH POC ABG pCO2 POC ABG pO2 ABG pO2 ABG HCO3 ABG O2 Saturation ABG Base Excess ABG Oxyhemoglobin ABG Sodium ABG Chloride ABG Glucose Oxyhemoglobin Carboxyhemoglobin Sodium Potassium Chloride Carbon Dioxide BUN Creatinine Glucose POC Glucose 140 H 252 H 214 H Hemoglobin A1c Magnesium Ferritin AST ALT Alkaline Phosphatase Lactate Dehydrogenase C-Reactive Protein Total Protein Albumin Arterial Blood Glucose Coronavirus (PCR) 04/21/21 04/22/21 04/22/21 21:42 08:37 12:01 WBC MCH MCHC RDW Lymph % (Auto) [place] % (Auto) Eos % (Auto) Lymph # (Auto) [place] # (Auto) Eos # (Auto) Baso # (Auto) Seg Neutrophils % Seg Neuts % (Manual) Lymphocytes % (Manual) Seg Neutrophils # Seg Neutrophils # Man Lymphocytes # (Manual) D-Dimer ABG pH 7.457 H POC ABG pCO2 POC ABG pO2 49.4 L ABG pO2 ABG HCO3 ABG O2 Saturation ABG Base Excess ABG Oxyhemoglobin 85.6 L ABG Sodium ABG Chloride ABG Glucose 121 H Oxyhemoglobin Carboxyhemoglobin 0.3 L Sodium Potassium Chloride Carbon Dioxide BUN Creatinine Glucose POC Glucose 162 H 227 H Hemoglobin A1c Magnesium Ferritin AST ALT Alkaline Phosphatase Lactate Dehydrogenase C-Reactive Protein Total Protein Albumin Arterial Blood Glucose 121 H Coronavirus (PCR) 04/22/21 04/22/21 04/23/21 16:26 22:23 04:52 WBC MCH MCHC RDW 15.7 H Lymph % (Auto) [place] % (Auto) Eos % (Auto) Lymph # (Auto) [place] # (Auto) Eos # (Auto) Baso # (Auto) Seg Neutrophils % Seg Neuts % (Manual) Lymphocytes % (Manual) Seg Neutrophils # Seg Neutrophils # Man Lymphocytes # (Manual) D-Dimer ABG pH POC ABG pCO2 POC ABG pO2 ABG pO2 ABG HCO3 ABG O2 Saturation ABG Base Excess ABG Oxyhemoglobin ABG Sodium ABG Chloride ABG Glucose Oxyhemoglobin Carboxyhemoglobin Sodium Potassium Chloride Carbon Dioxide BUN Creatinine Glucose POC Glucose 200 H 136 H Hemoglobin A1c Magnesium Ferritin AST ALT Alkaline Phosphatase Lactate Dehydrogenase C-Reactive Protein Total Protein Albumin Arterial Blood Glucose Coronavirus (PCR) 04/23/21 04/23/21 04/23/21 04:52 12:06 17:41 WBC MCH MCHC RDW Lymph % (Auto) [place] % (Auto) Eos % (Auto) Lymph # (Auto) [place] # (Auto) Eos # (Auto) Baso # (Auto) Seg Neutrophils % Seg Neuts % (Manual) Lymphocytes % (Manual) Seg Neutrophils # Seg Neutrophils # Man Lymphocytes # (Manual) D-Dimer ABG pH POC ABG pCO2 POC ABG pO2 ABG pO2 ABG HCO3 ABG O2 Saturation ABG Base Excess ABG Oxyhemoglobin ABG Sodium ABG Chloride ABG Glucose Oxyhemoglobin Carboxyhemoglobin Sodium 136 L Potassium Chloride 97.7 L Carbon Dioxide BUN 23 H Creatinine Glucose 101 H POC Glucose 202 H 169 H Hemoglobin A1c Magnesium Ferritin AST 46 H ALT Alkaline Phosphatase Lactate Dehydrogenase C-Reactive Protein Total Protein Albumin 3.3 L Arterial Blood Glucose Coronavirus (PCR) 04/23/21 04/24/21 04/24/21 23:08 05:17 08:38 WBC MCH MCHC RDW Lymph % (Auto) [place] % (Auto) Eos % (Auto) Lymph # (Auto) [place] # (Auto) Eos # (Auto) Baso # (Auto) Seg Neutrophils % Seg Neuts % (Manual) Lymphocytes % (Manual) Seg Neutrophils # Seg Neutrophils # Man Lymphocytes # (Manual) D-Dimer ABG pH POC ABG pCO2 POC ABG pO2 ABG pO2 ABG HCO3 ABG O2 Saturation ABG Base Excess ABG Oxyhemoglobin ABG Sodium ABG Chloride ABG Glucose Oxyhemoglobin Carboxyhemoglobin Sodium Potassium Chloride Carbon Dioxide BUN Creatinine Glucose POC Glucose 111 H 108 H 126 H Hemoglobin A1c Magnesium Ferritin AST ALT Alkaline Phosphatase Lactate Dehydrogenase C-Reactive Protein Total Protein Albumin Arterial Blood Glucose Coronavirus (PCR) 04/24/21 04/24/21 04/24/21 11:54 17:57 21:23 WBC MCH MCHC RDW Lymph % (Auto) [place] % (Auto) Eos % (Auto) Lymph # (Auto) [place] # (Auto) Eos # (Auto) Baso # (Auto) Seg Neutrophils % Seg Neuts % (Manual) Lymphocytes % (Manual) Seg Neutrophils # Seg Neutrophils # Man Lymphocytes # (Manual) D-Dimer ABG pH POC ABG pCO2 POC ABG pO2 ABG pO2 ABG HCO3 ABG O2 Saturation ABG Base Excess ABG Oxyhemoglobin ABG Sodium ABG Chloride ABG Glucose Oxyhemoglobin Carboxyhemoglobin Sodium Potassium Chloride Carbon Dioxide BUN Creatinine Glucose POC Glucose 147 H 177 H 138 H Hemoglobin A1c Magnesium Ferritin AST ALT Alkaline Phosphatase Lactate Dehydrogenase C-Reactive Protein Total Protein Albumin Arterial Blood Glucose Coronavirus (PCR) 04/25/21 04/25/21 04/25/21 07:06 11:23 15:43 WBC MCH MCHC RDW Lymph % (Auto) [place] % (Auto) Eos % (Auto) Lymph # (Auto) [place] # (Auto) Eos # (Auto) Baso # (Auto) Seg Neutrophils % Seg Neuts % (Manual) Lymphocytes % (Manual) Seg Neutrophils # Seg Neutrophils # Man Lymphocytes # (Manual) D-Dimer ABG pH POC ABG pCO2 POC ABG pO2 ABG pO2 ABG HCO3 ABG O2 Saturation ABG Base Excess ABG Oxyhemoglobin ABG Sodium ABG Chloride ABG Glucose Oxyhemoglobin Carboxyhemoglobin Sodium Potassium Chloride Carbon Dioxide BUN Creatinine Glucose POC Glucose 147 H 169 H 227 H Hemoglobin A1c Magnesium Ferritin AST ALT Alkaline Phosphatase Lactate Dehydrogenase C-Reactive Protein Total Protein Albumin Arterial Blood Glucose Coronavirus (PCR) 04/25/21 04/26/21 04/26/21 21:22 02:45 05:15 WBC MCH MCHC RDW Lymph % (Auto) [place] % (Auto) Eos % (Auto) Lymph # (Auto) [place] # (Auto) Eos # (Auto) Baso # (Auto) Seg Neutrophils % Seg Neuts % (Manual) Lymphocytes % (Manual) Seg Neutrophils # Seg Neutrophils # Man Lymphocytes # (Manual) D-Dimer ABG pH POC ABG pCO2 POC ABG pO2 70.7 L ABG pO2 ABG HCO3 ABG O2 Saturation ABG Base Excess ABG Oxyhemoglobin 93.0 L ABG Sodium 132.7 L ABG Chloride ABG Glucose 115 H Oxyhemoglobin Carboxyhemoglobin Sodium Potassium Chloride 95.8 L Carbon Dioxide 32 H BUN 20 H Creatinine Glucose 102 H POC Glucose 196 H Hemoglobin A1c Magnesium Ferritin AST ALT Alkaline Phosphatase Lactate Dehydrogenase C-Reactive Protein Total Protein Albumin Arterial Blood Glucose 115 H Coronavirus (PCR) 04/26/21 04/26/21 04/26/21 11:49 16:09 21:07 WBC MCH MCHC RDW Lymph % (Auto) [place] % (Auto) Eos % (Auto) Lymph # (Auto) [place] # (Auto) Eos # (Auto) Baso # (Auto) Seg Neutrophils % Seg Neuts % (Manual) Lymphocytes % (Manual) Seg Neutrophils # Seg Neutrophils # Man Lymphocytes # (Manual) D-Dimer ABG pH POC ABG pCO2 POC ABG pO2 ABG pO2 ABG HCO3 ABG O2 Saturation ABG Base Excess ABG Oxyhemoglobin ABG Sodium ABG Chloride ABG Glucose Oxyhemoglobin Carboxyhemoglobin Sodium Potassium Chloride Carbon Dioxide BUN Creatinine Glucose POC Glucose 114 H 188 H 136 H Hemoglobin A1c Magnesium Ferritin AST ALT Alkaline Phosphatase Lactate Dehydrogenase C-Reactive Protein Total Protein Albumin Arterial Blood Glucose Coronavirus (PCR) 04/27/21 04/27/21 04/28/21 17:34 22:12 08:26 WBC MCH MCHC RDW Lymph % (Auto) [place] % (Auto) Eos % (Auto) Lymph # (Auto) [place] # (Auto) Eos # (Auto) Baso # (Auto) Seg Neutrophils % Seg Neuts % (Manual) Lymphocytes % (Manual) Seg Neutrophils # Seg Neutrophils # Man Lymphocytes # (Manual) D-Dimer ABG pH POC ABG pCO2 POC ABG pO2 ABG pO2 ABG HCO3 ABG O2 Saturation ABG Base Excess ABG Oxyhemoglobin ABG Sodium ABG Chloride ABG Glucose Oxyhemoglobin Carboxyhemoglobin Sodium Potassium Chloride Carbon Dioxide BUN Creatinine Glucose POC Glucose 128 H 159 H 69 L Hemoglobin A1c Magnesium Ferritin AST ALT Alkaline Phosphatase Lactate Dehydrogenase C-Reactive Protein Total Protein Albumin Arterial Blood Glucose Coronavirus (PCR) 04/28/21 04/28/21 04/29/21 12:22 21:11 06:05 WBC MCH MCHC RDW Lymph % (Auto) [place] % (Auto) Eos % (Auto) Lymph # (Auto) [place] # (Auto) Eos # (Auto) Baso # (Auto) Seg Neutrophils % Seg Neuts % (Manual) Lymphocytes % (Manual) Seg Neutrophils # Seg Neutrophils # Man Lymphocytes # (Manual) D-Dimer ABG pH POC ABG pCO2 POC ABG pO2 ABG pO2 ABG HCO3 ABG O2 Saturation ABG Base Excess ABG Oxyhemoglobin ABG Sodium ABG Chloride ABG Glucose Oxyhemoglobin Carboxyhemoglobin Sodium 132 L Potassium Chloride 94.4 L Carbon Dioxide BUN Creatinine 0.2 L D Glucose 140 H POC Glucose 141 H 171 H Hemoglobin A1c Magnesium Ferritin AST ALT Alkaline Phosphatase Lactate Dehydrogenase C-Reactive Protein Total Protein Albumin Arterial Blood Glucose Coronavirus (PCR) 04/29/21 04/29/21 04/29/21 06:05 07:24 11:36 WBC MCH MCHC 35 H RDW 15.9 H Lymph % (Auto) [place] % (Auto) Eos % (Auto) Lymph # (Auto) [place] # (Auto) Eos # (Auto) Baso # (Auto) Seg Neutrophils % Seg Neuts % (Manual) Lymphocytes % (Manual) Seg Neutrophils # Seg Neutrophils # Man Lymphocytes # (Manual) D-Dimer ABG pH POC ABG pCO2 POC ABG pO2 ABG pO2 ABG HCO3 ABG O2 Saturation ABG Base Excess ABG Oxyhemoglobin ABG Sodium ABG Chloride ABG Glucose Oxyhemoglobin Carboxyhemoglobin Sodium Potassium Chloride Carbon Dioxide BUN Creatinine Glucose POC Glucose 141 H 220 H Hemoglobin A1c Magnesium Ferritin AST ALT Alkaline Phosphatase Lactate Dehydrogenase C-Reactive Protein Total Protein Albumin Arterial Blood Glucose Coronavirus (PCR) 04/29/21 04/29/21 04/29/21 14:23 15:30 17:06 WBC MCH MCHC RDW Lymph % (Auto) [place] % (Auto) Eos % (Auto) Lymph # (Auto) [place] # (Auto) Eos # (Auto) Baso # (Auto) Seg Neutrophils % Seg Neuts % (Manual) Lymphocytes % (Manual) Seg Neutrophils # Seg Neutrophils # Man Lymphocytes # (Manual) D-Dimer ABG pH POC ABG pCO2 POC ABG pO2 ABG pO2 52.6 L ABG HCO3 ABG O2 Saturation 86.4 L ABG Base Excess ABG Oxyhemoglobin ABG Sodium ABG Chloride ABG Glucose Oxyhemoglobin 84.6 L Carboxyhemoglobin Sodium Potassium Chloride Carbon Dioxide BUN Creatinine Glucose POC Glucose 173 H 158 H Hemoglobin A1c Magnesium Ferritin AST ALT Alkaline Phosphatase Lactate Dehydrogenase C-Reactive Protein Total Protein Albumin Arterial Blood Glucose Coronavirus (PCR) 04/29/21 04/30/21 04/30/21 21:27 07:16 08:00 WBC MCH MCHC RDW 16.1 H Lymph % (Auto) [place] % (Auto) Eos % (Auto) Lymph # (Auto) [place] # (Auto) Eos # (Auto) Baso # (Auto) Seg Neutrophils % Seg Neuts % (Manual) Lymphocytes % (Manual) Seg Neutrophils # Seg Neutrophils # Man Lymphocytes # (Manual) D-Dimer ABG pH POC ABG pCO2 POC ABG pO2 ABG pO2 ABG HCO3 ABG O2 Saturation ABG Base Excess ABG Oxyhemoglobin ABG Sodium ABG Chloride ABG Glucose Oxyhemoglobin Carboxyhemoglobin Sodium Potassium Chloride Carbon Dioxide BUN Creatinine Glucose POC Glucose 244 H 175 H Hemoglobin A1c Magnesium Ferritin AST ALT Alkaline Phosphatase Lactate Dehydrogenase C-Reactive Protein Total Protein Albumin Arterial Blood Glucose Coronavirus (PCR) 04/30/21 04/30/21 04/30/21 08:00 08:00 11:03 WBC MCH MCHC RDW Lymph % (Auto) [place] % (Auto) Eos % (Auto) Lymph # (Auto) [place] # (Auto) Eos # (Auto) Baso # (Auto) Seg Neutrophils % Seg Neuts % (Manual) Lymphocytes % (Manual) Seg Neutrophils # Seg Neutrophils # Man Lymphocytes # (Manual) D-Dimer 1796.87 H ABG pH POC ABG pCO2 POC ABG pO2 ABG pO2 ABG HCO3 ABG O2 Saturation ABG Base Excess ABG Oxyhemoglobin ABG Sodium ABG Chloride ABG Glucose Oxyhemoglobin Carboxyhemoglobin Sodium 135 L Potassium Chloride 96.3 L Carbon Dioxide BUN Creatinine 0.2 L Glucose 153 H POC Glucose 183 H Hemoglobin A1c Magnesium Ferritin AST 41 H ALT 76 H Alkaline Phosphatase 160 H Lactate Dehydrogenase 522 H C-Reactive Protein Total Protein 6.1 L Albumin 3.1 L Arterial Blood Glucose Coronavirus (PCR) 04/30/21 04/30/2105/01/21 17:04 22:17 05:39 WBC MCH MCHC RDW Lymph % (Auto) [place] % (Auto) Eos % (Auto) Lymph # (Auto) [place] # (Auto) Eos # (Auto) Baso # (Auto) Seg Neutrophils % Seg Neuts % (Manual) Lymphocytes % (Manual) Seg Neutrophils # Seg Neutrophils # Man Lymphocytes # (Manual) D-Dimer ABG pH POC ABG pCO2 POC ABG pO2 ABG pO2 ABG HCO3 ABG O2 Saturation ABG Base Excess ABG Oxyhemoglobin ABG Sodium ABG Chloride ABG Glucose Oxyhemoglobin Carboxyhemoglobin Sodium 133 L Potassium Chloride 92.1 L Carbon Dioxide BUN 24 H Creatinine 0.4 L D Glucose 269 H POC Glucose 167 H 208 H Hemoglobin A1c Magnesium Ferritin AST ALT 66 H Alkaline Phosphatase 142 H Lactate Dehydrogenase C-Reactive Protein Total Protein Albumin 3.2 L Arterial Blood Glucose Coronavirus (PCR) 05/01/21 05/01/21 05/01/21 05:39 05:39 07:45 WBC MCH MCHC RDW 16.0 H Lymph % (Auto) [place] % (Auto) Eos % (Auto) Lymph # (Auto) [place] # (Auto) Eos # (Auto) Baso # (Auto) Seg Neutrophils % Seg Neuts % (Manual) Lymphocytes % (Manual) Seg Neutrophils # Seg Neutrophils # Man Lymphocytes # (Manual) D-Dimer 3984.95 H ABG pH POC ABG pCO2 POC ABG pO2 ABG pO2 ABG HCO3 ABG O2 Saturation ABG Base Excess ABG Oxyhemoglobin ABG Sodium ABG Chloride ABG Glucose Oxyhemoglobin Carboxyhemoglobin Sodium Potassium Chloride Carbon Dioxide BUN Creatinine Glucose POC Glucose 229 H Hemoglobin A1c Magnesium Ferritin AST ALT Alkaline Phosphatase Lactate Dehydrogenase C-Reactive Protein Total Protein Albumin Arterial Blood Glucose Coronavirus (PCR) 05/01/21 05/01/21 05/01/21 12:10 15:46 21:06 WBC MCH MCHC RDW Lymph % (Auto) [place] % (Auto) Eos % (Auto) Lymph # (Auto) [place] # (Auto) Eos # (Auto) Baso # (Auto) Seg Neutrophils % Seg Neuts % (Manual) Lymphocytes % (Manual) Seg Neutrophils # Seg Neutrophils # Man Lymphocytes # (Manual) D-Dimer ABG pH POC ABG pCO2 POC ABG pO2 ABG pO2 ABG HCO3 ABG O2 Saturation ABG Base Excess ABG Oxyhemoglobin ABG Sodium ABG Chloride ABG Glucose Oxyhemoglobin Carboxyhemoglobin Sodium Potassium Chloride Carbon Dioxide BUN Creatinine Glucose POC Glucose 296 H 279 H 232 H Hemoglobin A1c Magnesium Ferritin AST ALT Alkaline Phosphatase Lactate Dehydrogenase C-Reactive Protein Total Protein Albumin Arterial Blood Glucose Coronavirus (PCR) 05/02/21 05/02/21 05/02/21 04:55 04:55 04:55 WBC MCH MCHC RDW 16.1 H Lymph % (Auto) [place] % (Auto) Eos % (Auto) Lymph # (Auto) [place] # (Auto) Eos # (Auto) Baso # (Auto) Seg Neutrophils % Seg Neuts % (Manual) Lymphocytes % (Manual) Seg Neutrophils # Seg Neutrophils # Man Lymphocytes # (Manual) D-Dimer 1401.08 H ABG pH POC ABG pCO2 POC ABG pO2 ABG pO2 ABG HCO3 ABG O2 Saturation ABG Base Excess ABG Oxyhemoglobin ABG Sodium ABG Chloride ABG Glucose Oxyhemoglobin Carboxyhemoglobin Sodium 131 L Potassium Chloride 95.5 L Carbon Dioxide BUN 20 H Creatinine 0.3 L Glucose 288 H POC Glucose Hemoglobin A1c Magnesium Ferritin AST ALT Alkaline Phosphatase Lactate Dehydrogenase C-Reactive Protein Total Protein 6.0 L Albumin 3.1 L Arterial Blood Glucose Coronavirus (PCR) 05/02/21 05/02/21 05/02/21 07:53 11:45 15:25 WBC MCH MCHC RDW Lymph % (Auto) [place] % (Auto) Eos % (Auto) Lymph # (Auto) [place] # (Auto) Eos # (Auto) Baso # (Auto) Seg Neutrophils % Seg Neuts % (Manual) Lymphocytes % (Manual) Seg Neutrophils # Seg Neutrophils # Man Lymphocytes # (Manual) D-Dimer ABG pH POC ABG pCO2 POC ABG pO2 ABG pO2 ABG HCO3 ABG O2 Saturation ABG Base Excess ABG Oxyhemoglobin ABG Sodium ABG Chloride ABG Glucose Oxyhemoglobin Carboxyhemoglobin Sodium Potassium Chloride Carbon Dioxide BUN Creatinine Glucose POC Glucose 180 H 228 H 275 H Hemoglobin A1c Magnesium Ferritin AST ALT Alkaline Phosphatase Lactate Dehydrogenase C-Reactive Protein Total Protein Albumin Arterial Blood Glucose Coronavirus (PCR) 05/02/21 05/03/21 05/03/21 22:56 04:30 04:49 WBC MCH MCHC RDW Lymph % (Auto) [place] % (Auto) Eos % (Auto) Lymph # (Auto) [place] # (Auto) Eos # (Auto) Baso # (Auto) Seg Neutrophils % Seg Neuts % (Manual) Lymphocytes % (Manual) Seg Neutrophils # Seg Neutrophils # Man Lymphocytes # (Manual) D-Dimer ABG pH 7.229 L POC ABG pCO2 POC ABG pO2 65.3 L ABG pO2 ABG HCO3 ABG O2 Saturation ABG Base Excess ABG Oxyhemoglobin 87.8 L ABG Sodium 133.0 L ABG Chloride 97.0 L ABG Glucose 403 H Oxyhemoglobin Carboxyhemoglobin Sodium 130 L Potassium Chloride 94.9 L Carbon Dioxide BUN 20 H Creatinine 0.5 L D Glucose 359 H POC Glucose 293 H Hemoglobin A1c Magnesium Ferritin AST 54 H ALT 75 H Alkaline Phosphatase 138 H Lactate Dehydrogenase C-Reactive Protein Total Protein Albumin 3.6 L Arterial Blood Glucose 403 H Coronavirus (PCR) 05/03/21 05/03/21 05/03/21 05:27 11:26 17:57 WBC MCH MCHC RDW Lymph % (Auto) [place] % (Auto) Eos % (Auto) Lymph # (Auto) [place] # (Auto) Eos # (Auto) Baso # (Auto) Seg Neutrophils % Seg Neuts % (Manual) Lymphocytes % (Manual) Seg Neutrophils # Seg Neutrophils # Man Lymphocytes # (Manual) D-Dimer ABG pH POC ABG pCO2 POC ABG pO2 ABG pO2 ABG HCO3 ABG O2 Saturation ABG Base Excess ABG Oxyhemoglobin ABG Sodium ABG Chloride ABG Glucose Oxyhemoglobin Carboxyhemoglobin Sodium Potassium Chloride Carbon Dioxide BUN Creatinine Glucose POC Glucose 361 H 297 H 226 H Hemoglobin A1c Magnesium Ferritin AST ALT Alkaline Phosphatase Lactate Dehydrogenase C-Reactive Protein Total Protein Albumin Arterial Blood Glucose Coronavirus (PCR) 05/03/21 05/04/21 05/04/21 23:12 05:12 07:30 WBC MCH MCHC RDW Lymph % (Auto) [place] % (Auto) Eos % (Auto) Lymph # (Auto) [place] # (Auto) Eos # (Auto) Baso # (Auto) Seg Neutrophils % Seg Neuts % (Manual) Lymphocytes % (Manual) Seg Neutrophils # Seg Neutrophils # Man Lymphocytes # (Manual) D-Dimer ABG pH POC ABG pCO2 POC ABG pO2 ABG pO2 ABG HCO3 ABG O2 Saturation ABG Base Excess ABG Oxyhemoglobin ABG Sodium ABG Chloride ABG Glucose Oxyhemoglobin Carboxyhemoglobin Sodium Potassium Chloride Carbon Dioxide BUN Creatinine Glucose POC Glucose 282 H 285 H 254 H Hemoglobin A1c Magnesium Ferritin AST ALT Alkaline Phosphatase Lactate Dehydrogenase C-Reactive Protein Total Protein Albumin Arterial Blood Glucose Coronavirus (PCR) 05/04/21 05/04/21 05/04/21 08:58 11:45 16:07 WBC MCH MCHC RDW Lymph % (Auto) [place] % (Auto) Eos % (Auto) Lymph # (Auto) [place] # (Auto) Eos # (Auto) Baso # (Auto) Seg Neutrophils % Seg Neuts % (Manual) Lymphocytes % (Manual) Seg Neutrophils # Seg Neutrophils # Man Lymphocytes # (Manual) D-Dimer ABG pH POC ABG pCO2 POC ABG pO2 ABG pO2 ABG HCO3 ABG O2 Saturation ABG Base Excess ABG Oxyhemoglobin ABG Sodium ABG Chloride ABG Glucose Oxyhemoglobin Carboxyhemoglobin Sodium 134 L Potassium Chloride Carbon Dioxide BUN 20 H Creatinine 0.3 L Glucose 267 H POC Glucose 244 H 297 H Hemoglobin A1c Magnesium Ferritin AST ALT Alkaline Phosphatase Lactate Dehydrogenase C-Reactive Protein Total Protein 6.0 L Albumin 3.2 L Arterial Blood Glucose Coronavirus (PCR) 05/04/21 05/05/21 05/05/21 23:32 05:00 05:13 WBC MCH MCHC RDW Lymph % (Auto) [place] % (Auto) Eos % (Auto) Lymph # (Auto) [place] # (Auto) Eos # (Auto) Baso # (Auto) Seg Neutrophils % Seg Neuts % (Manual) Lymphocytes % (Manual) Seg Neutrophils # Seg Neutrophils # Man Lymphocytes # (Manual) D-Dimer ABG pH POC ABG pCO2 POC ABG pO2 ABG pO2 ABG HCO3 ABG O2 Saturation ABG Base Excess ABG Oxyhemoglobin ABG Sodium ABG Chloride ABG Glucose Oxyhemoglobin Carboxyhemoglobin Sodium 132 L Potassium Chloride 96.4 L Carbon Dioxide BUN 22 H Creatinine 0.3 L Glucose 228 H POC Glucose 154 H 260 H Hemoglobin A1c Magnesium Ferritin AST ALT 67 H Alkaline Phosphatase Lactate Dehydrogenase C-Reactive Protein Total Protein 6.1 L Albumin 3.2 L Arterial Blood Glucose Coronavirus (PCR) 05/05/21 05/05/21 05/05/21 11:32 17:49 23:07 WBC MCH MCHC RDW Lymph % (Auto) [place] % (Auto) Eos % (Auto) Lymph # (Auto) [place] # (Auto) Eos # (Auto) Baso # (Auto) Seg Neutrophils % Seg Neuts % (Manual) Lymphocytes % (Manual) Seg Neutrophils # Seg Neutrophils # Man Lymphocytes # (Manual) D-Dimer ABG pH POC ABG pCO2 POC ABG pO2 ABG pO2 ABG HCO3 ABG O2 Saturation ABG Base Excess ABG Oxyhemoglobin ABG Sodium ABG Chloride ABG Glucose Oxyhemoglobin Carboxyhemoglobin Sodium Potassium Chloride Carbon Dioxide BUN Creatinine Glucose POC Glucose 279 H 308 H 213 H Hemoglobin A1c Magnesium Ferritin AST ALT Alkaline Phosphatase Lactate Dehydrogenase C-Reactive Protein Total Protein Albumin Arterial Blood Glucose Coronavirus (PCR) 05/06/21 05/06/21 05/06/21 05:00 05:00 05:20 WBC MCH MCHC RDW 16.8 H Lymph % (Auto) [place] % (Auto) Eos % (Auto) Lymph # (Auto) [place] # (Auto) Eos # (Auto) Baso # (Auto) Seg Neutrophils % Seg Neuts % (Manual) 99.0 H Lymphocytes % (Manual) Seg Neutrophils # Seg Neutrophils # Man 10.9 H Lymphocytes # (Manual) 0.0 L D-Dimer ABG pH POC ABG pCO2 POC ABG pO2 ABG pO2 ABG HCO3 ABG O2 Saturation ABG Base Excess ABG Oxyhemoglobin ABG Sodium ABG Chloride ABG Glucose Oxyhemoglobin Carboxyhemoglobin Sodium 133 L Potassium Chloride Carbon Dioxide BUN 21 H Creatinine 0.3 L Glucose 259 H POC Glucose 308 H Hemoglobin A1c Magnesium Ferritin AST ALT Alkaline Phosphatase Lactate Dehydrogenase C-Reactive Protein Total Protein Albumin 3.2 L Arterial Blood Glucose Coronavirus (PCR) 05/06/21 05/06/21 05/06/21 11:24 17:54 21:32 WBC MCH MCHC RDW Lymph % (Auto) [place] % (Auto) Eos % (Auto) Lymph # (Auto) [place] # (Auto) Eos # (Auto) Baso # (Auto) Seg Neutrophils % Seg Neuts % (Manual) Lymphocytes % (Manual) Seg Neutrophils # Seg Neutrophils # Man Lymphocytes # (Manual) D-Dimer ABG pH POC ABG pCO2 POC ABG pO2 ABG pO2 ABG HCO3 ABG O2 Saturation ABG Base Excess ABG Oxyhemoglobin ABG Sodium ABG Chloride ABG Glucose Oxyhemoglobin Carboxyhemoglobin Sodium Potassium Chloride Carbon Dioxide BUN Creatinine Glucose POC Glucose 262 H 124 H 246 H Hemoglobin A1c Magnesium Ferritin AST ALT Alkaline Phosphatase Lactate Dehydrogenase C-Reactive Protein Total Protein Albumin Arterial Blood Glucose Coronavirus (PCR) 05/06/21 05/07/21 05/07/21 23:10 04:54 04:54 WBC MCH MCHC RDW Lymph % (Auto) [place] % (Auto) Eos % (Auto) Lymph # (Auto) [place] # (Auto) Eos # (Auto) Baso # (Auto) Seg Neutrophils % Seg Neuts % (Manual) Lymphocytes % (Manual) Seg Neutrophils # Seg Neutrophils # Man Lymphocytes # (Manual) D-Dimer 1609.28 H ABG pH POC ABG pCO2 POC ABG pO2 ABG pO2 ABG HCO3 ABG O2 Saturation ABG Base Excess ABG Oxyhemoglobin ABG Sodium ABG Chloride ABG Glucose Oxyhemoglobin Carboxyhemoglobin Sodium 136 L Potassium Chloride Carbon Dioxide BUN 23 H Creatinine 0.3 L Glucose 110 H POC Glucose 249 H Hemoglobin A1c Magnesium Ferritin AST ALT Alkaline Phosphatase Lactate Dehydrogenase C-Reactive Protein Total Protein 6.2 L Albumin 3.0 L Arterial Blood Glucose Coronavirus (PCR) 05/07/21 05/07/21 05/07/21 04:54 04:54 11:41 WBC MCH MCHC RDW Lymph % (Auto) [place] % (Auto) Eos % (Auto) Lymph # (Auto) [place] # (Auto) Eos # (Auto) Baso # (Auto) Seg Neutrophils % Seg Neuts % (Manual) Lymphocytes % (Manual) Seg Neutrophils # Seg Neutrophils # Man Lymphocytes # (Manual) D-Dimer ABG pH POC ABG pCO2 POC ABG pO2 ABG pO2 ABG HCO3 ABG O2 Saturation ABG Base Excess ABG Oxyhemoglobin ABG Sodium ABG Chloride ABG Glucose Oxyhemoglobin Carboxyhemoglobin Sodium Potassium Chloride Carbon Dioxide BUN Creatinine Glucose POC Glucose 118 H Hemoglobin A1c Magnesium Ferritin 296.1 H AST ALT Alkaline Phosphatase Lactate Dehydrogenase 724 H C-Reactive Protein Total Protein Albumin Arterial Blood Glucose Coronavirus (PCR) 05/07/21 05/07/21 05/08/21 16:43 22:34 06:44 WBC MCH MCHC RDW Lymph % (Auto) [place] % (Auto) Eos % (Auto) Lymph # (Auto) [place] # (Auto) Eos # (Auto) Baso # (Auto) Seg Neutrophils % Seg Neuts % (Manual) Lymphocytes % (Manual) Seg Neutrophils # Seg Neutrophils # Man Lymphocytes # (Manual) D-Dimer ABG pH POC ABG pCO2 POC ABG pO2 ABG pO2 ABG HCO3 ABG O2 Saturation ABG Base Excess ABG Oxyhemoglobin ABG Sodium ABG Chloride ABG Glucose Oxyhemoglobin Carboxyhemoglobin Sodium Potassium Chloride Carbon Dioxide BUN Creatinine Glucose POC Glucose 159 H 233 H 235 H Hemoglobin A1c Magnesium Ferritin AST ALT Alkaline Phosphatase Lactate Dehydrogenase C-Reactive Protein Total Protein Albumin Arterial Blood Glucose Coronavirus (PCR) 05/08/21 05/08/21 05/08/21 07:49 11:56 17:13 WBC MCH MCHC RDW Lymph % (Auto) [place] % (Auto) Eos % (Auto) Lymph # (Auto) [place] # (Auto) Eos # (Auto) Baso # (Auto) Seg Neutrophils % Seg Neuts % (Manual) Lymphocytes % (Manual) Seg Neutrophils # Seg Neutrophils # Man Lymphocytes # (Manual) D-Dimer ABG pH POC ABG pCO2 POC ABG pO2 ABG pO2 ABG HCO3 ABG O2 Saturation ABG Base Excess ABG Oxyhemoglobin ABG Sodium ABG Chloride ABG Glucose Oxyhemoglobin Carboxyhemoglobin Sodium Potassium Chloride Carbon Dioxide BUN Creatinine Glucose POC Glucose 219 H 184 H 182 H Hemoglobin A1c Magnesium Ferritin AST ALT Alkaline Phosphatase Lactate Dehydrogenase C-Reactive Protein Total Protein Albumin Arterial Blood Glucose Coronavirus (PCR) 05/08/21 05/09/21 05/09/21 23:35 05:20 05:20 WBC MCH MCHC RDW Lymph % (Auto) [place] % (Auto) Eos % (Auto) Lymph # (Auto) [place] # (Auto) Eos # (Auto) Baso # (Auto) Seg Neutrophils % Seg Neuts % (Manual) Lymphocytes % (Manual) Seg Neutrophils # Seg Neutrophils # Man Lymphocytes # (Manual) D-Dimer 1003.87 H ABG pH POC ABG pCO2 POC ABG pO2 ABG pO2 ABG HCO3 ABG O2 Saturation ABG Base Excess ABG Oxyhemoglobin ABG Sodium ABG Chloride ABG Glucose Oxyhemoglobin Carboxyhemoglobin Sodium Potassium Chloride Carbon Dioxide BUN Creatinine Glucose POC Glucose 198 H Hemoglobin A1c Magnesium Ferritin 378.7 H AST ALT Alkaline Phosphatase Lactate Dehydrogenase C-Reactive Protein Total Protein Albumin Arterial Blood Glucose Coronavirus (PCR) 05/09/21 05/09/21 05/09/21 05:20 06:04 12:53 WBC MCH MCHC RDW Lymph % (Auto) [place] % (Auto) Eos % (Auto) Lymph # (Auto) [place] # (Auto) Eos # (Auto) Baso # (Auto) Seg Neutrophils % Seg Neuts % (Manual) Lymphocytes % (Manual) Seg Neutrophils # Seg Neutrophils # Man Lymphocytes # (Manual) D-Dimer ABG pH POC ABG pCO2 POC ABG pO2 ABG pO2 ABG HCO3 ABG O2 Saturation ABG Base Excess ABG Oxyhemoglobin ABG Sodium ABG Chloride ABG Glucose Oxyhemoglobin Carboxyhemoglobin Sodium Potassium Chloride Carbon Dioxide BUN Creatinine Glucose POC Glucose 159 H 180 H Hemoglobin A1c Magnesium Ferritin AST ALT Alkaline Phosphatase Lactate Dehydrogenase 558 H C-Reactive Protein 2.40 H Total Protein Albumin Arterial Blood Glucose Coronavirus (PCR) 05/09/21 05/09/21 05/10/21 16:43 21:27 10:18 WBC MCH MCHC RDW Lymph % (Auto) [place] % (Auto) Eos % (Auto) Lymph # (Auto) [place] # (Auto) Eos # (Auto) Baso # (Auto) Seg Neutrophils % Seg Neuts % (Manual) Lymphocytes % (Manual) Seg Neutrophils # Seg Neutrophils # Man Lymphocytes # (Manual) D-Dimer ABG pH POC ABG pCO2 POC ABG pO2 ABG pO2 ABG HCO3 ABG O2 Saturation ABG Base Excess ABG Oxyhemoglobin ABG Sodium ABG Chloride ABG Glucose Oxyhemoglobin Carboxyhemoglobin Sodium Potassium Chloride Carbon Dioxide BUN Creatinine Glucose POC Glucose 212 H 285 H 261 H Hemoglobin A1c Magnesium Ferritin AST ALT Alkaline Phosphatase Lactate Dehydrogenase C-Reactive Protein Total Protein Albumin Arterial Blood Glucose Coronavirus (PCR) 05/10/21 05/10/21 05/11/21 17:58 18:02 00:29 WBC MCH MCHC RDW Lymph % (Auto) [place] % (Auto) Eos % (Auto) Lymph # (Auto) [place] # (Auto) Eos # (Auto) Baso # (Auto) Seg Neutrophils % Seg Neuts % (Manual) Lymphocytes % (Manual) Seg Neutrophils # Seg Neutrophils # Man Lymphocytes # (Manual) D-Dimer ABG pH POC ABG pCO2 POC ABG pO2 ABG pO2 ABG HCO3 ABG O2 Saturation ABG Base Excess ABG Oxyhemoglobin ABG Sodium ABG Chloride ABG Glucose Oxyhemoglobin Carboxyhemoglobin Sodium Potassium Chloride Carbon Dioxide BUN Creatinine Glucose POC Glucose 213 H 179 H 149 H Hemoglobin A1c Magnesium Ferritin AST ALT Alkaline Phosphatase Lactate Dehydrogenase C-Reactive Protein Total Protein Albumin Arterial Blood Glucose Coronavirus (PCR) 05/11/21 05/11/21 05/11/21 05:22 11:32 17:00 WBC 14.9 H MCH MCHC RDW 18.9 H Lymph % (Auto) 4.9 L [place] % (Auto) Eos % (Auto) Lymph # (Auto) 0.7 L [place] # (Auto) Eos # (Auto) Baso # (Auto) 0.2 H Seg Neutrophils % Seg Neuts % (Manual) Lymphocytes % (Manual) Seg Neutrophils # 13.3 H Seg Neutrophils # Man Lymphocytes # (Manual) D-Dimer ABG pH POC ABG pCO2 POC ABG pO2 ABG pO2 ABG HCO3 ABG O2 Saturation ABG Base Excess ABG Oxyhemoglobin ABG Sodium ABG Chloride ABG Glucose Oxyhemoglobin Carboxyhemoglobin Sodium Potassium Chloride Carbon Dioxide BUN Creatinine Glucose POC Glucose 162 H 179 H Hemoglobin A1c Magnesium Ferritin AST ALT Alkaline Phosphatase Lactate Dehydrogenase C-Reactive Protein Total Protein Albumin Arterial Blood Glucose Coronavirus (PCR) 05/11/21 05/11/21 05/11/21 17:00 17:33 22:03 WBC MCH MCHC RDW Lymph % (Auto) [place] % (Auto) Eos % (Auto) Lymph # (Auto) [place] # (Auto) Eos # (Auto) Baso # (Auto) Seg Neutrophils % Seg Neuts % (Manual) Lymphocytes % (Manual) Seg Neutrophils # Seg Neutrophils # Man Lymphocytes # (Manual) D-Dimer ABG pH POC ABG pCO2 POC ABG pO2 ABG pO2 ABG HCO3 ABG O2 Saturation ABG Base Excess ABG Oxyhemoglobin ABG Sodium ABG Chloride ABG Glucose Oxyhemoglobin Carboxyhemoglobin Sodium 135 L Potassium Chloride 97.3 L Carbon Dioxide BUN 21 H Creatinine 0.3 L Glucose 133 H POC Glucose 140 H 282 H Hemoglobin A1c Magnesium Ferritin AST ALT 60 H Alkaline Phosphatase Lactate Dehydrogenase C-Reactive Protein Total Protein Albumin 3.1 L Arterial Blood Glucose Coronavirus (PCR) 05/12/21 05/12/21 05/12/21 04:05 04:05 04:05 WBC MCH MCHC RDW 18.4 H Lymph % (Auto) [place] % (Auto) Eos % (Auto) Lymph # (Auto) [place] # (Auto) Eos # (Auto) Baso # (Auto) Seg Neutrophils % Seg Neuts % (Manual) 94.0 H Lymphocytes % (Manual) 4.0 L Seg Neutrophils # Seg Neutrophils # Man Lymphocytes # (Manual) 0.3 L D-Dimer ABG pH POC ABG pCO2 POC ABG pO2 ABG pO2 ABG HCO3 ABG O2 Saturation ABG Base Excess ABG Oxyhemoglobin ABG Sodium ABG Chloride ABG Glucose Oxyhemoglobin Carboxyhemoglobin Sodium 136 L Potassium Chloride Carbon Dioxide BUN 18 H Creatinine 0.2 L Glucose 142 H POC Glucose Hemoglobin A1c Magnesium Ferritin 350.7 H AST ALT Alkaline Phosphatase Lactate Dehydrogenase 546 H C-Reactive Protein Total Protein 6.1 L Albumin 3.0 L Arterial Blood Glucose Coronavirus (PCR) 05/12/21 05/12/21 05/12/21 05:11 11:17 16:27 WBC MCH MCHC RDW Lymph % (Auto) [place] % (Auto) Eos % (Auto) Lymph # (Auto) [place] # (Auto) Eos # (Auto) Baso # (Auto) Seg Neutrophils % Seg Neuts % (Manual) Lymphocytes % (Manual) Seg Neutrophils # Seg Neutrophils # Man Lymphocytes # (Manual) D-Dimer ABG pH POC ABG pCO2 POC ABG pO2 ABG pO2 ABG HCO3 ABG O2 Saturation ABG Base Excess ABG Oxyhemoglobin ABG Sodium ABG Chloride ABG Glucose Oxyhemoglobin Carboxyhemoglobin Sodium Potassium Chloride Carbon Dioxide BUN Creatinine Glucose POC Glucose 152 H 190 H 261 H Hemoglobin A1c Magnesium Ferritin AST ALT Alkaline Phosphatase Lactate Dehydrogenase C-Reactive Protein Total Protein Albumin Arterial Blood Glucose Coronavirus (PCR) 05/12/21 05/13/21 05/13/21 20:55 11:08 21:41 WBC MCH MCHC RDW Lymph % (Auto) [place] % (Auto) Eos % (Auto) Lymph # (Auto) [place] # (Auto) Eos # (Auto) Baso # (Auto) Seg Neutrophils % Seg Neuts % (Manual) Lymphocytes % (Manual) Seg Neutrophils # Seg Neutrophils # Man Lymphocytes # (Manual) D-Dimer ABG pH POC ABG pCO2 POC ABG pO2 ABG pO2 ABG HCO3 ABG O2 Saturation ABG Base Excess ABG Oxyhemoglobin ABG Sodium ABG Chloride ABG Glucose Oxyhemoglobin Carboxyhemoglobin Sodium Potassium Chloride Carbon Dioxide BUN Creatinine Glucose POC Glucose 231 H 106 H 174 H Hemoglobin A1c Magnesium Ferritin AST ALT Alkaline Phosphatase Lactate Dehydrogenase C-Reactive Protein Total Protein Albumin Arterial Blood Glucose Coronavirus (PCR) 05/14/21 05/14/21 05/14/21 00:53 02:23 06:06 WBC MCH MCHC RDW Lymph % (Auto) [place] % (Auto) Eos % (Auto) Lymph # (Auto) [place] # (Auto) Eos # (Auto) Baso # (Auto) Seg Neutrophils % Seg Neuts % (Manual) Lymphocytes % (Manual) Seg Neutrophils # Seg Neutrophils # Man Lymphocytes # (Manual) D-Dimer ABG pH POC ABG pCO2 POC ABG pO2 ABG pO2 130.3 H ABG HCO3 30.6 H ABG O2 Saturation ABG Base Excess 4.9 H ABG Oxyhemoglobin ABG Sodium ABG Chloride ABG Glucose Oxyhemoglobin Carboxyhemoglobin Sodium Potassium Chloride Carbon Dioxide BUN Creatinine Glucose POC Glucose 229 H 119 H Hemoglobin A1c Magnesium Ferritin AST ALT Alkaline Phosphatase Lactate Dehydrogenase C-Reactive Protein Total Protein Albumin Arterial Blood Glucose Coronavirus (PCR) 05/14/21 05/14/21 05/14/21 07:13 07:13 07:13 WBC MCH MCHC RDW Lymph % (Auto) [place] % (Auto) Eos % (Auto) Lymph # (Auto) [place] # (Auto) Eos # (Auto) Baso # (Auto) Seg Neutrophils % Seg Neuts % (Manual) Lymphocytes % (Manual) Seg Neutrophils # Seg Neutrophils # Man Lymphocytes # (Manual) D-Dimer 712.80 H ABG pH POC ABG pCO2 POC ABG pO2 ABG pO2 ABG HCO3 ABG O2 Saturation ABG Base Excess ABG Oxyhemoglobin ABG Sodium ABG Chloride ABG Glucose Oxyhemoglobin Carboxyhemoglobin Sodium 133 L Potassium Chloride 95.5 L Carbon Dioxide 32 H BUN Creatinine 0.2 L Glucose 137 H POC Glucose Hemoglobin A1c Magnesium Ferritin 283.5 H AST ALT 63 H Alkaline Phosphatase Lactate Dehydrogenase 563 H C-Reactive Protein Total Protein 6.1 L Albumin 3.0 L Arterial Blood Glucose Coronavirus (PCR) 05/14/21 05/14/21 05/14/21 12:21 15:33 21:50 WBC MCH MCHC RDW Lymph % (Auto) [place] % (Auto) Eos % (Auto) Lymph # (Auto) [place] # (Auto) Eos # (Auto) Baso # (Auto) Seg Neutrophils % Seg Neuts % (Manual) Lymphocytes % (Manual) Seg Neutrophils # Seg Neutrophils # Man Lymphocytes # (Manual) D-Dimer ABG pH POC ABG pCO2 POC ABG pO2 ABG pO2 ABG HCO3 ABG O2 Saturation ABG Base Excess ABG Oxyhemoglobin ABG Sodium ABG Chloride ABG Glucose Oxyhemoglobin Carboxyhemoglobin Sodium Potassium Chloride Carbon Dioxide BUN Creatinine Glucose POC Glucose 143 H 204 H 202 H Hemoglobin A1c Magnesium Ferritin AST ALT Alkaline Phosphatase Lactate Dehydrogenase C-Reactive Protein Total Protein Albumin Arterial Blood Glucose Coronavirus (PCR) 05/15/21 05/15/21 05/15/21 05:05 11:12 16:39 WBC MCH MCHC RDW Lymph % (Auto) [place] % (Auto) Eos % (Auto) Lymph # (Auto) [place] # (Auto) Eos # (Auto) Baso # (Auto) Seg Neutrophils % Seg Neuts % (Manual) Lymphocytes % (Manual) Seg Neutrophils # Seg Neutrophils # Man Lymphocytes # (Manual) D-Dimer ABG pH POC ABG pCO2 POC ABG pO2 ABG pO2 ABG HCO3 ABG O2 Saturation ABG Base Excess ABG Oxyhemoglobin ABG Sodium ABG Chloride ABG Glucose Oxyhemoglobin Carboxyhemoglobin Sodium Potassium Chloride Carbon Dioxide BUN Creatinine Glucose POC Glucose 125 H 201 H 241 H Hemoglobin A1c Magnesium Ferritin AST ALT Alkaline Phosphatase Lactate Dehydrogenase C-Reactive Protein Total Protein Albumin Arterial Blood Glucose Coronavirus (PCR) 05/15/21 05/16/21 05/16/21 21:31 05:04 10:40 WBC MCH MCHC RDW Lymph % (Auto) [place] % (Auto) Eos % (Auto) Lymph # (Auto) [place] # (Auto) Eos # (Auto) Baso # (Auto) Seg Neutrophils % Seg Neuts % (Manual) Lymphocytes % (Manual) Seg Neutrophils # Seg Neutrophils # Man Lymphocytes # (Manual) D-Dimer ABG pH POC ABG pCO2 POC ABG pO2 ABG pO2 ABG HCO3 ABG O2 Saturation ABG Base Excess ABG Oxyhemoglobin ABG Sodium ABG Chloride ABG Glucose Oxyhemoglobin Carboxyhemoglobin Sodium Potassium Chloride Carbon Dioxide BUN Creatinine Glucose POC Glucose 234 H 123 H 231 H Hemoglobin A1c Magnesium Ferritin AST ALT Alkaline Phosphatase Lactate Dehydrogenase C-Reactive Protein Total Protein Albumin Arterial Blood Glucose Coronavirus (PCR) 05/16/21 05/16/21 05/17/21 18:23 21:29 06:20 WBC MCH MCHC RDW 18.8 H Lymph % (Auto) 10.2 L [place] % (Auto) Eos % (Auto) Lymph # (Auto) 0.8 L [place] # (Auto) Eos # (Auto) Baso # (Auto) Seg Neutrophils % 85.8 H Seg Neuts % (Manual) Lymphocytes % (Manual) Seg Neutrophils # Seg Neutrophils # Man Lymphocytes # (Manual) D-Dimer ABG pH POC ABG pCO2 POC ABG pO2 ABG pO2 ABG HCO3 ABG O2 Saturation ABG Base Excess ABG Oxyhemoglobin ABG Sodium ABG Chloride ABG Glucose Oxyhemoglobin Carboxyhemoglobin Sodium Potassium Chloride Carbon Dioxide BUN Creatinine Glucose POC Glucose 266 H 234 H Hemoglobin A1c Magnesium Ferritin AST ALT Alkaline Phosphatase Lactate Dehydrogenase C-Reactive Protein Total Protein Albumin Arterial Blood Glucose Coronavirus (PCR) 05/17/21 05/17/21 05/17/21 06:20 11:06 16:36 WBC MCH MCHC RDW Lymph % (Auto) [place] % (Auto) Eos % (Auto) Lymph # (Auto) [place] # (Auto) Eos # (Auto) Baso # (Auto) Seg Neutrophils % Seg Neuts % (Manual) Lymphocytes % (Manual) Seg Neutrophils # Seg Neutrophils # Man Lymphocytes # (Manual) D-Dimer ABG pH POC ABG pCO2 POC ABG pO2 ABG pO2 ABG HCO3 ABG O2 Saturation ABG Base Excess ABG Oxyhemoglobin ABG Sodium ABG Chloride ABG Glucose Oxyhemoglobin Carboxyhemoglobin Sodium Potassium Chloride Carbon Dioxide 33 H BUN Creatinine 0.2 L Glucose 101 H POC Glucose 209 H 180 H Hemoglobin A1c Magnesium Ferritin AST ALT Alkaline Phosphatase Lactate Dehydrogenase C-Reactive Protein Total Protein Albumin Arterial Blood Glucose Coronavirus (PCR) 05/17/21 05/18/21 05/18/21 21:06 12:00 15:06 WBC MCH MCHC RDW Lymph % (Auto) [place] % (Auto) Eos % (Auto) Lymph # (Auto) [place] # (Auto) Eos # (Auto) Baso # (Auto) Seg Neutrophils % Seg Neuts % (Manual) Lymphocytes % (Manual) Seg Neutrophils # Seg Neutrophils # Man Lymphocytes # (Manual) D-Dimer 874.02 H ABG pH POC ABG pCO2 POC ABG pO2 ABG pO2 ABG HCO3 ABG O2 Saturation ABG Base Excess ABG Oxyhemoglobin ABG Sodium ABG Chloride ABG Glucose Oxyhemoglobin Carboxyhemoglobin Sodium Potassium Chloride Carbon Dioxide BUN Creatinine Glucose POC Glucose 256 H 139 H Hemoglobin A1c Magnesium Ferritin AST ALT Alkaline Phosphatase Lactate Dehydrogenase C-Reactive Protein Total Protein Albumin Arterial Blood Glucose Coronavirus (PCR) 05/18/21 05/18/21 05/18/21 15:06 15:06 16:08 WBC MCH MCHC RDW Lymph % (Auto) [place] % (Auto) Eos % (Auto) Lymph # (Auto) [place] # (Auto) Eos # (Auto) Baso # (Auto) Seg Neutrophils % Seg Neuts % (Manual) Lymphocytes % (Manual) Seg Neutrophils # Seg Neutrophils # Man Lymphocytes # (Manual) D-Dimer ABG pH POC ABG pCO2 POC ABG pO2 ABG pO2 ABG HCO3 ABG O2 Saturation ABG Base Excess ABG Oxyhemoglobin ABG Sodium ABG Chloride ABG Glucose Oxyhemoglobin Carboxyhemoglobin Sodium Potassium Chloride Carbon Dioxide BUN Creatinine Glucose POC Glucose 178 H Hemoglobin A1c Magnesium Ferritin 289.6 H AST ALT Alkaline Phosphatase Lactate Dehydrogenase 605 H C-Reactive Protein Total Protein Albumin Arterial Blood Glucose Coronavirus (PCR) 05/18/21 05/19/21 05/19/21 21:22 11:57 15:26 WBC MCH MCHC RDW Lymph % (Auto) [place] % (Auto) Eos % (Auto) Lymph # (Auto) [place] # (Auto) Eos # (Auto) Baso # (Auto) Seg Neutrophils % Seg Neuts % (Manual) Lymphocytes % (Manual) Seg Neutrophils # Seg Neutrophils # Man Lymphocytes # (Manual) D-Dimer ABG pH POC ABG pCO2 POC ABG pO2 ABG pO2 ABG HCO3 ABG O2 Saturation ABG Base Excess ABG Oxyhemoglobin ABG Sodium ABG Chloride ABG Glucose Oxyhemoglobin Carboxyhemoglobin Sodium Potassium Chloride Carbon Dioxide BUN Creatinine Glucose POC Glucose 241 H 201 H 209 H Hemoglobin A1c Magnesium Ferritin AST ALT Alkaline Phosphatase Lactate Dehydrogenase C-Reactive Protein Total Protein Albumin Arterial Blood Glucose Coronavirus (PCR) 05/19/21 05/20/21 05/20/21 20:59 07:38 08:01 WBC MCH MCHC RDW 19.7 H Lymph % (Auto) 8.3 L [place] % (Auto) Eos % (Auto) Lymph # (Auto) 0.8 L [place] # (Auto) Eos # (Auto) Baso # (Auto) Seg Neutrophils % 88.6 H Seg Neuts % (Manual) Lymphocytes % (Manual) Seg Neutrophils # 8.4 H Seg Neutrophils # Man Lymphocytes # (Manual) D-Dimer ABG pH POC ABG pCO2 POC ABG pO2 ABG pO2 ABG HCO3 ABG O2 Saturation ABG Base Excess ABG Oxyhemoglobin ABG Sodium ABG Chloride ABG Glucose Oxyhemoglobin Carboxyhemoglobin Sodium Potassium Chloride Carbon Dioxide BUN Creatinine Glucose POC Glucose 226 H 130 H Hemoglobin A1c Magnesium Ferritin AST ALT Alkaline Phosphatase Lactate Dehydrogenase C-Reactive Protein Total Protein Albumin Arterial Blood Glucose Coronavirus (PCR) 05/20/21 05/20/21 05/20/21 08:01 11:00 16:43 WBC MCH MCHC RDW Lymph % (Auto) [place] % (Auto) Eos % (Auto) Lymph # (Auto) [place] # (Auto) Eos # (Auto) Baso # (Auto) Seg Neutrophils % Seg Neuts % (Manual) Lymphocytes % (Manual) Seg Neutrophils # Seg Neutrophils # Man Lymphocytes # (Manual) D-Dimer ABG pH POC ABG pCO2 POC ABG pO2 ABG pO2 ABG HCO3 ABG O2 Saturation ABG Base Excess ABG Oxyhemoglobin ABG Sodium ABG Chloride ABG Glucose Oxyhemoglobin Carboxyhemoglobin Sodium Potassium Chloride Carbon Dioxide BUN 18 H Creatinine 0.2 L Glucose 132 H POC Glucose 237 H 240 H Hemoglobin A1c Magnesium Ferritin AST ALT Alkaline Phosphatase Lactate Dehydrogenase C-Reactive Protein Total Protein Albumin Arterial Blood Glucose Coronavirus (PCR) 05/20/21 05/21/21 05/21/21 21:21 07:35 11:32 WBC MCH MCHC RDW Lymph % (Auto) [place] % (Auto) Eos % (Auto) Lymph # (Auto) [place] # (Auto) Eos # (Auto) Baso # (Auto) Seg Neutrophils % Seg Neuts % (Manual) Lymphocytes % (Manual) Seg Neutrophils # Seg Neutrophils # Man Lymphocytes # (Manual) D-Dimer ABG pH POC ABG pCO2 POC ABG pO2 ABG pO2 ABG HCO3 ABG O2 Saturation ABG Base Excess ABG Oxyhemoglobin ABG Sodium ABG Chloride ABG Glucose Oxyhemoglobin Carboxyhemoglobin Sodium Potassium Chloride Carbon Dioxide BUN Creatinine Glucose POC Glucose 241 H 162 H 171 H Hemoglobin A1c Magnesium Ferritin AST ALT Alkaline Phosphatase Lactate Dehydrogenase C-Reactive Protein Total Protein Albumin Arterial Blood Glucose Coronavirus (PCR) 05/21/21 05/21/21 05/22/21 16:22 20:43 05:14 WBC MCH MCHC RDW Lymph % (Auto) [place] % (Auto) Eos % (Auto) Lymph # (Auto) [place] # (Auto) Eos # (Auto) Baso # (Auto) Seg Neutrophils % Seg Neuts % (Manual) Lymphocytes % (Manual) Seg Neutrophils # Seg Neutrophils # Man Lymphocytes # (Manual) D-Dimer ABG pH POC ABG pCO2 POC ABG pO2 ABG pO2 ABG HCO3 ABG O2 Saturation ABG Base Excess ABG Oxyhemoglobin ABG Sodium ABG Chloride ABG Glucose Oxyhemoglobin Carboxyhemoglobin Sodium Potassium Chloride Carbon Dioxide BUN Creatinine Glucose POC Glucose 244 H 299 H 140 H Hemoglobin A1c Magnesium Ferritin AST ALT Alkaline Phosphatase Lactate Dehydrogenase C-Reactive Protein Total Protein Albumin Arterial Blood Glucose Coronavirus (PCR) 05/22/21 05/22/21 05/22/21 08:45 11:54 16:15 WBC MCH MCHC RDW Lymph % (Auto) [place] % (Auto) Eos % (Auto) Lymph # (Auto) [place] # (Auto) Eos # (Auto) Baso # (Auto) Seg Neutrophils % Seg Neuts % (Manual) Lymphocytes % (Manual) Seg Neutrophils # Seg Neutrophils # Man Lymphocytes # (Manual) D-Dimer ABG pH POC ABG pCO2 POC ABG pO2 ABG pO2 ABG HCO3 ABG O2 Saturation ABG Base Excess ABG Oxyhemoglobin ABG Sodium ABG Chloride ABG Glucose Oxyhemoglobin Carboxyhemoglobin Sodium Potassium Chloride Carbon Dioxide BUN Creatinine Glucose POC Glucose 133 H 265 H 221 H Hemoglobin A1c Magnesium Ferritin AST ALT Alkaline Phosphatase Lactate Dehydrogenase C-Reactive Protein Total Protein Albumin Arterial Blood Glucose Coronavirus (PCR) 05/22/21 05/23/21 05/23/21 21:43 08:20 09:50 WBC MCH MCHC RDW Lymph % (Auto) [place] % (Auto) Eos % (Auto) Lymph # (Auto) [place] # (Auto) Eos # (Auto) Baso # (Auto) Seg Neutrophils % Seg Neuts % (Manual) Lymphocytes % (Manual) Seg Neutrophils # Seg Neutrophils # Man Lymphocytes # (Manual) D-Dimer 910.38 H ABG pH POC ABG pCO2 POC ABG pO2 ABG pO2 ABG HCO3 ABG O2 Saturation ABG Base Excess ABG Oxyhemoglobin ABG Sodium ABG Chloride ABG Glucose Oxyhemoglobin Carboxyhemoglobin Sodium Potassium Chloride Carbon Dioxide BUN Creatinine Glucose POC Glucose 262 H 140 H Hemoglobin A1c Magnesium Ferritin AST ALT Alkaline Phosphatase Lactate Dehydrogenase C-Reactive Protein Total Protein Albumin Arterial Blood Glucose Coronavirus (PCR) 05/23/21 05/23/21 05/23/21 09:50 09:50 10:52 WBC MCH MCHC RDW Lymph % (Auto) [place] % (Auto) Eos % (Auto) Lymph # (Auto) [place] # (Auto) Eos # (Auto) Baso # (Auto) Seg Neutrophils % Seg Neuts % (Manual) Lymphocytes % (Manual) Seg Neutrophils # Seg Neutrophils # Man Lymphocytes # (Manual) D-Dimer ABG pH POC ABG pCO2 POC ABG pO2 ABG pO2 ABG HCO3 ABG O2 Saturation ABG Base Excess ABG Oxyhemoglobin ABG Sodium ABG Chloride ABG Glucose Oxyhemoglobin Carboxyhemoglobin Sodium Potassium Chloride Carbon Dioxide BUN Creatinine Glucose POC Glucose 241 H Hemoglobin A1c Magnesium Ferritin 244.9 H AST ALT Alkaline Phosphatase Lactate Dehydrogenase 584 H C-Reactive Protein Total Protein Albumin Arterial Blood Glucose Coronavirus (PCR) 05/23/21 05/23/21 05/24/21 17:24 21:52 07:44 WBC MCH MCHC RDW Lymph % (Auto) [place] % (Auto) Eos % (Auto) Lymph # (Auto) [place] # (Auto) Eos # (Auto) Baso # (Auto) Seg Neutrophils % Seg Neuts % (Manual) Lymphocytes % (Manual) Seg Neutrophils # Seg Neutrophils # Man Lymphocytes # (Manual) D-Dimer ABG pH POC ABG pCO2 POC ABG pO2 ABG pO2 ABG HCO3 ABG O2 Saturation ABG Base Excess ABG Oxyhemoglobin ABG Sodium ABG Chloride ABG Glucose Oxyhemoglobin Carboxyhemoglobin Sodium Potassium Chloride Carbon Dioxide BUN Creatinine Glucose POC Glucose 197 H 289 H 161 H Hemoglobin A1c Magnesium Ferritin AST ALT Alkaline Phosphatase Lactate Dehydrogenase C-Reactive Protein Total Protein Albumin Arterial Blood Glucose Coronavirus (PCR) 05/24/21 05/24/21 05/24/21 11:17 17:51 21:26 WBC MCH MCHC RDW Lymph % (Auto) [place] % (Auto) Eos % (Auto) Lymph # (Auto) [place] # (Auto) Eos # (Auto) Baso # (Auto) Seg Neutrophils % Seg Neuts % (Manual) Lymphocytes % (Manual) Seg Neutrophils # Seg Neutrophils # Man Lymphocytes # (Manual) D-Dimer ABG pH POC ABG pCO2 POC ABG pO2 ABG pO2 ABG HCO3 ABG O2 Saturation ABG Base Excess ABG Oxyhemoglobin ABG Sodium ABG Chloride ABG Glucose Oxyhemoglobin Carboxyhemoglobin Sodium Potassium Chloride Carbon Dioxide BUN Creatinine Glucose POC Glucose 308 H 175 H 198 H Hemoglobin A1c Magnesium Ferritin AST ALT Alkaline Phosphatase Lactate Dehydrogenase C-Reactive Protein Total Protein Albumin Arterial Blood Glucose Coronavirus (PCR) 05/25/21 05/25/21 05/25/21 08:14 11:13 17:13 WBC MCH MCHC RDW Lymph % (Auto) [place] % (Auto) Eos % (Auto) Lymph # (Auto) [place] # (Auto) Eos # (Auto) Baso # (Auto) Seg Neutrophils % Seg Neuts % (Manual) Lymphocytes % (Manual) Seg Neutrophils # Seg Neutrophils # Man Lymphocytes # (Manual) D-Dimer ABG pH POC ABG pCO2 POC ABG pO2 ABG pO2 ABG HCO3 ABG O2 Saturation ABG Base Excess ABG Oxyhemoglobin ABG Sodium ABG Chloride ABG Glucose Oxyhemoglobin Carboxyhemoglobin Sodium Potassium Chloride Carbon Dioxide BUN Creatinine Glucose POC Glucose 203 H 339 H 235 H Hemoglobin A1c Magnesium Ferritin AST ALT Alkaline Phosphatase Lactate Dehydrogenase C-Reactive Protein Total Protein Albumin Arterial Blood Glucose Coronavirus (PCR) 05/25/21 05/26/21 05/26/21 21:03 07:33 11:19 WBC MCH MCHC RDW Lymph % (Auto) [place] % (Auto) Eos % (Auto) Lymph # (Auto) [place] # (Auto) Eos # (Auto) Baso # (Auto) Seg Neutrophils % Seg Neuts % (Manual) Lymphocytes % (Manual) Seg Neutrophils # Seg Neutrophils # Man Lymphocytes # (Manual) D-Dimer ABG pH POC ABG pCO2 POC ABG pO2 ABG pO2 ABG HCO3 ABG O2 Saturation ABG Base Excess ABG Oxyhemoglobin ABG Sodium ABG Chloride ABG Glucose Oxyhemoglobin Carboxyhemoglobin Sodium Potassium Chloride Carbon Dioxide BUN Creatinine Glucose POC Glucose 263 H 156 H 288 H Hemoglobin A1c Magnesium Ferritin AST ALT Alkaline Phosphatase Lactate Dehydrogenase C-Reactive Protein Total Protein Albumin Arterial Blood Glucose Coronavirus (PCR) 05/26/21 05/26/21 05/27/21 16:26 20:55 07:38 WBC MCH MCHC RDW Lymph % (Auto) [place] % (Auto) Eos % (Auto) Lymph # (Auto) [place] # (Auto) Eos # (Auto) Baso # (Auto) Seg Neutrophils % Seg Neuts % (Manual) Lymphocytes % (Manual) Seg Neutrophils # Seg Neutrophils # Man Lymphocytes # (Manual) D-Dimer ABG pH POC ABG pCO2 POC ABG pO2 ABG pO2 ABG HCO3 ABG O2 Saturation ABG Base Excess ABG Oxyhemoglobin ABG Sodium ABG Chloride ABG Glucose Oxyhemoglobin Carboxyhemoglobin Sodium Potassium Chloride Carbon Dioxide BUN Creatinine Glucose POC Glucose 286 H 293 H 115 H Hemoglobin A1c Magnesium Ferritin AST ALT Alkaline Phosphatase Lactate Dehydrogenase C-Reactive Protein Total Protein Albumin Arterial Blood Glucose Coronavirus (PCR) 05/27/21 05/27/21 05/27/21 11:46 15:58 21:02 WBC MCH MCHC RDW Lymph % (Auto) [place] % (Auto) Eos % (Auto) Lymph # (Auto) [place] # (Auto) Eos # (Auto) Baso # (Auto) Seg Neutrophils % Seg Neuts % (Manual) Lymphocytes % (Manual) Seg Neutrophils # Seg Neutrophils # Man Lymphocytes # (Manual) D-Dimer ABG pH POC ABG pCO2 POC ABG pO2 ABG pO2 ABG HCO3 ABG O2 Saturation ABG Base Excess ABG Oxyhemoglobin ABG Sodium ABG Chloride ABG Glucose Oxyhemoglobin Carboxyhemoglobin Sodium Potassium Chloride Carbon Dioxide BUN Creatinine Glucose POC Glucose 260 H 318 H 246 H Hemoglobin A1c Magnesium Ferritin AST ALT Alkaline Phosphatase Lactate Dehydrogenase C-Reactive Protein Total Protein Albumin Arterial Blood Glucose Coronavirus (PCR) 05/28/21 05/28/21 05/28/21 07:34 11:31 16:36 WBC MCH MCHC RDW Lymph % (Auto) [place] % (Auto) Eos % (Auto) Lymph # (Auto) [place] # (Auto) Eos # (Auto) Baso # (Auto) Seg Neutrophils % Seg Neuts % (Manual) Lymphocytes % (Manual) Seg Neutrophils # Seg Neutrophils # Man Lymphocytes # (Manual) D-Dimer ABG pH POC ABG pCO2 POC ABG pO2 ABG pO2 ABG HCO3 ABG O2 Saturation ABG Base Excess ABG Oxyhemoglobin ABG Sodium ABG Chloride ABG Glucose Oxyhemoglobin Carboxyhemoglobin Sodium Potassium Chloride Carbon Dioxide BUN Creatinine Glucose POC Glucose 185 H 297 H 183 H Hemoglobin A1c Magnesium Ferritin AST ALT Alkaline Phosphatase Lactate Dehydrogenase C-Reactive Protein Total Protein Albumin Arterial Blood Glucose Coronavirus (PCR) 05/28/21 05/29/21 05/29/21 21:19 07:34 11:19 WBC MCH MCHC RDW Lymph % (Auto) [place] % (Auto) Eos % (Auto) Lymph # (Auto) [place] # (Auto) Eos # (Auto) Baso # (Auto) Seg Neutrophils % Seg Neuts % (Manual) Lymphocytes % (Manual) Seg Neutrophils # Seg Neutrophils # Man Lymphocytes # (Manual) D-Dimer ABG pH POC ABG pCO2 POC ABG pO2 ABG pO2 ABG HCO3 ABG O2 Saturation ABG Base Excess ABG Oxyhemoglobin ABG Sodium ABG Chloride ABG Glucose Oxyhemoglobin Carboxyhemoglobin Sodium Potassium Chloride Carbon Dioxide BUN Creatinine Glucose POC Glucose 274 H 139 H 293 H Hemoglobin A1c Magnesium Ferritin AST ALT Alkaline Phosphatase Lactate Dehydrogenase C-Reactive Protein Total Protein Albumin Arterial Blood Glucose Coronavirus (PCR) 05/29/21 05/29/21 05/30/21 16:36 22:44 05:55 WBC MCH MCHC RDW 21.3 H Lymph % (Auto) 8.0 L [place] % (Auto) Eos % (Auto) Lymph # (Auto) 0.6 L [place] # (Auto) Eos # (Auto) Baso # (Auto) Seg Neutrophils % 88.6 H Seg Neuts % (Manual) Lymphocytes % (Manual) Seg Neutrophils # Seg Neutrophils # Man Lymphocytes # (Manual) D-Dimer ABG pH POC ABG pCO2 POC ABG pO2 ABG pO2 ABG HCO3 ABG O2 Saturation ABG Base Excess ABG Oxyhemoglobin ABG Sodium ABG Chloride ABG Glucose Oxyhemoglobin Carboxyhemoglobin Sodium Potassium Chloride Carbon Dioxide BUN Creatinine Glucose POC Glucose 299 H 160 H Hemoglobin A1c Magnesium Ferritin AST ALT Alkaline Phosphatase Lactate Dehydrogenase C-Reactive Protein Total Protein Albumin Arterial Blood Glucose Coronavirus (PCR) 05/30/21 05/30/21 05/30/21 05:55 08:04 11:13 WBC MCH MCHC RDW Lymph % (Auto) [place] % (Auto) Eos % (Auto) Lymph # (Auto) [place] # (Auto) Eos # (Auto) Baso # (Auto) Seg Neutrophils % Seg Neuts % (Manual) Lymphocytes % (Manual) Seg Neutrophils # Seg Neutrophils # Man Lymphocytes # (Manual) D-Dimer ABG pH POC ABG pCO2 POC ABG pO2 ABG pO2 ABG HCO3 ABG O2 Saturation ABG Base Excess ABG Oxyhemoglobin ABG Sodium ABG Chloride ABG Glucose Oxyhemoglobin Carboxyhemoglobin Sodium Potassium Chloride Carbon Dioxide BUN 19 H Creatinine 0.2 L Glucose 209 H POC Glucose 157 H 275 H Hemoglobin A1c Magnesium Ferritin AST ALT Alkaline Phosphatase Lactate Dehydrogenase C-Reactive Protein Total Protein Albumin Arterial Blood Glucose Coronavirus (PCR) 05/30/21 05/30/21 05/31/21 17:08 22:12 07:36 WBC MCH MCHC RDW Lymph % (Auto) [place] % (Auto) Eos % (Auto) Lymph # (Auto) [place] # (Auto) Eos # (Auto) Baso # (Auto) Seg Neutrophils % Seg Neuts % (Manual) Lymphocytes % (Manual) Seg Neutrophils # Seg Neutrophils # Man Lymphocytes # (Manual) D-Dimer ABG pH POC ABG pCO2 POC ABG pO2 ABG pO2 ABG HCO3 ABG O2 Saturation ABG Base Excess ABG Oxyhemoglobin ABG Sodium ABG Chloride ABG Glucose Oxyhemoglobin Carboxyhemoglobin Sodium Potassium Chloride Carbon Dioxide BUN Creatinine Glucose POC Glucose 154 H 275 H 138 H Hemoglobin A1c Magnesium Ferritin AST ALT Alkaline Phosphatase Lactate Dehydrogenase C-Reactive Protein Total Protein Albumin Arterial Blood Glucose Coronavirus (PCR) 05/31/21 05/31/21 05/31/21 11:17 16:55 21:25 WBC MCH MCHC RDW Lymph % (Auto) [place] % (Auto) Eos % (Auto) Lymph # (Auto) [place] # (Auto) Eos # (Auto) Baso # (Auto) Seg Neutrophils % Seg Neuts % (Manual) Lymphocytes % (Manual) Seg Neutrophils # Seg Neutrophils # Man Lymphocytes # (Manual) D-Dimer ABG pH POC ABG pCO2 POC ABG pO2 ABG pO2 ABG HCO3 ABG O2 Saturation ABG Base Excess ABG Oxyhemoglobin ABG Sodium ABG Chloride ABG Glucose Oxyhemoglobin Carboxyhemoglobin Sodium Potassium Chloride Carbon Dioxide BUN Creatinine Glucose POC Glucose 258 H 215 H 318 H Hemoglobin A1c Magnesium Ferritin AST ALT Alkaline Phosphatase Lactate Dehydrogenase C-Reactive Protein Total Protein Albumin Arterial Blood Glucose Coronavirus (PCR) 06/01/21 06/01/21 06/01/21 07:23 11:38 16:52 WBC MCH MCHC RDW Lymph % (Auto) [place] % (Auto) Eos % (Auto) Lymph # (Auto) [place] # (Auto) Eos # (Auto) Baso # (Auto) Seg Neutrophils % Seg Neuts % (Manual) Lymphocytes % (Manual) Seg Neutrophils # Seg Neutrophils # Man Lymphocytes # (Manual) D-Dimer ABG pH POC ABG pCO2 POC ABG pO2 ABG pO2 ABG HCO3 ABG O2 Saturation ABG Base Excess ABG Oxyhemoglobin ABG Sodium ABG Chloride ABG Glucose Oxyhemoglobin Carboxyhemoglobin Sodium Potassium Chloride Carbon Dioxide BUN Creatinine Glucose POC Glucose 157 H 259 H 150 H Hemoglobin A1c Magnesium Ferritin AST ALT Alkaline Phosphatase Lactate Dehydrogenase C-Reactive Protein Total Protein Albumin Arterial Blood Glucose Coronavirus (PCR) 06/01/21 06/02/21 06/02/21 23:16 05:34 05:34 WBC MCH MCHC RDW 21.3 H Lymph % (Auto) 9.6 L [place] % (Auto) Eos % (Auto) Lymph # (Auto) 0.6 L [place] # (Auto) Eos # (Auto) Baso # (Auto) Seg Neutrophils % 86.2 H Seg Neuts % (Manual) Lymphocytes % (Manual) Seg Neutrophils # Seg Neutrophils # Man Lymphocytes # (Manual) D-Dimer ABG pH POC ABG pCO2 POC ABG pO2 ABG pO2 ABG HCO3 ABG O2 Saturation ABG Base Excess ABG Oxyhemoglobin ABG Sodium ABG Chloride ABG Glucose Oxyhemoglobin Carboxyhemoglobin Sodium 136 L Potassium Chloride Carbon Dioxide BUN Creatinine 0.2 L Glucose 186 H POC Glucose 247 H Hemoglobin A1c Magnesium Ferritin AST ALT 69 H Alkaline Phosphatase Lactate Dehydrogenase C-Reactive Protein Total Protein 6.1 L Albumin 3.2 L Arterial Blood Glucose Coronavirus (PCR) 06/02/21 06/02/21 06/02/21 11:25 18:23 21:32 WBC MCH MCHC RDW Lymph % (Auto) [place] % (Auto) Eos % (Auto) Lymph # (Auto) [place] # (Auto) Eos # (Auto) Baso # (Auto) Seg Neutrophils % Seg Neuts % (Manual) Lymphocytes % (Manual) Seg Neutrophils # Seg Neutrophils # Man Lymphocytes # (Manual) D-Dimer ABG pH POC ABG pCO2 POC ABG pO2 ABG pO2 ABG HCO3 ABG O2 Saturation ABG Base Excess ABG Oxyhemoglobin ABG Sodium ABG Chloride ABG Glucose Oxyhemoglobin Carboxyhemoglobin Sodium Potassium Chloride Carbon Dioxide BUN Creatinine Glucose POC Glucose 157 H 299 H 246 H Hemoglobin A1c Magnesium Ferritin AST ALT Alkaline Phosphatase Lactate Dehydrogenase C-Reactive Protein Total Protein Albumin Arterial Blood Glucose Coronavirus (PCR) 06/03/21 06/03/21 06/03/21 08:12 12:21 17:31 WBC MCH MCHC RDW Lymph % (Auto) [place] % (Auto) Eos % (Auto) Lymph # (Auto) [place] # (Auto) Eos # (Auto) Baso # (Auto) Seg Neutrophils % Seg Neuts % (Manual) Lymphocytes % (Manual) Seg Neutrophils # Seg Neutrophils # Man Lymphocytes # (Manual) D-Dimer ABG pH POC ABG pCO2 POC ABG pO2 ABG pO2 ABG HCO3 ABG O2 Saturation ABG Base Excess ABG Oxyhemoglobin ABG Sodium ABG Chloride ABG Glucose Oxyhemoglobin Carboxyhemoglobin Sodium Potassium Chloride Carbon Dioxide BUN Creatinine Glucose POC Glucose 153 H 302 H 252 H Hemoglobin A1c Magnesium Ferritin AST ALT Alkaline Phosphatase Lactate Dehydrogenase C-Reactive Protein Total Protein Albumin Arterial Blood Glucose Coronavirus (PCR) 06/03/21 06/04/21 06/04/21 22:08 11:12 16:01 WBC MCH MCHC RDW Lymph % (Auto) [place] % (Auto) Eos % (Auto) Lymph # (Auto) [place] # (Auto) Eos # (Auto) Baso # (Auto) Seg Neutrophils % Seg Neuts % (Manual) Lymphocytes % (Manual) Seg Neutrophils # Seg Neutrophils # Man Lymphocytes # (Manual) D-Dimer ABG pH POC ABG pCO2 POC ABG pO2 ABG pO2 ABG HCO3 ABG O2 Saturation ABG Base Excess ABG Oxyhemoglobin ABG Sodium ABG Chloride ABG Glucose Oxyhemoglobin Carboxyhemoglobin Sodium Potassium Chloride Carbon Dioxide BUN Creatinine Glucose POC Glucose 224 H 259 H 238 H Hemoglobin A1c Magnesium Ferritin AST ALT Alkaline Phosphatase Lactate Dehydrogenase C-Reactive Protein Total Protein Albumin Arterial Blood Glucose Coronavirus (PCR) 06/04/21 06/05/21 06/05/21 21:26 05:26 05:26 WBC MCH MCHC RDW Lymph % (Auto) [place] % (Auto) Eos % (Auto) Lymph # (Auto) [place] # (Auto) Eos # (Auto) Baso # (Auto) Seg Neutrophils % Seg Neuts % (Manual) Lymphocytes % (Manual) Seg Neutrophils # Seg Neutrophils # Man Lymphocytes # (Manual) D-Dimer 488.49 H ABG pH POC ABG pCO2 POC ABG pO2 ABG pO2 ABG HCO3 ABG O2 Saturation ABG Base Excess ABG Oxyhemoglobin ABG Sodium ABG Chloride ABG Glucose Oxyhemoglobin Carboxyhemoglobin Sodium Potassium Chloride Carbon Dioxide BUN Creatinine 0.2 L Glucose 198 H POC Glucose 257 H Hemoglobin A1c Magnesium Ferritin AST ALT Alkaline Phosphatase Lactate Dehydrogenase 475 H C-Reactive Protein Total Protein Albumin Arterial Blood Glucose Coronavirus (PCR) 06/05/21 06/05/21 06/05/21 07:20 08:30 11:00 WBC MCH MCHC RDW Lymph % (Auto) [place] % (Auto) Eos % (Auto) Lymph # (Auto) [place] # (Auto) Eos # (Auto) Baso # (Auto) Seg Neutrophils % Seg Neuts % (Manual) Lymphocytes % (Manual) Seg Neutrophils # Seg Neutrophils # Man Lymphocytes # (Manual) D-Dimer ABG pH POC ABG pCO2 POC ABG pO2 ABG pO2 ABG HCO3 ABG O2 Saturation ABG Base Excess ABG Oxyhemoglobin ABG Sodium ABG Chloride ABG Glucose Oxyhemoglobin Carboxyhemoglobin Sodium Potassium Chloride Carbon Dioxide BUN Creatinine Glucose POC Glucose 146 H 246 H Hemoglobin A1c Magnesium Ferritin AST ALT Alkaline Phosphatase Lactate Dehydrogenase C-Reactive Protein Total Protein Albumin Arterial Blood Glucose Coronavirus (PCR) Positive A 06/05/21 06/05/21 06/06/21 16:50 22:30 07:57 WBC MCH MCHC RDW Lymph % (Auto) [place] % (Auto) Eos % (Auto) Lymph # (Auto) [place] # (Auto) Eos # (Auto) Baso # (Auto) Seg Neutrophils % Seg Neuts % (Manual) Lymphocytes % (Manual) Seg Neutrophils # Seg Neutrophils # Man Lymphocytes # (Manual) D-Dimer ABG pH POC ABG pCO2 POC ABG pO2 ABG pO2 ABG HCO3 ABG O2 Saturation ABG Base Excess ABG Oxyhemoglobin ABG Sodium ABG Chloride ABG Glucose Oxyhemoglobin Carboxyhemoglobin Sodium Potassium Chloride Carbon Dioxide BUN Creatinine Glucose POC Glucose 240 H 174 H 120 H Hemoglobin A1c Magnesium Ferritin AST ALT Alkaline Phosphatase Lactate Dehydrogenase C-Reactive Protein Total Protein Albumin Arterial Blood Glucose Coronavirus (PCR) 06/06/21 06/06/21 06/06/21 11:14 16:50 21:11 WBC MCH MCHC RDW Lymph % (Auto) [place] % (Auto) Eos % (Auto) Lymph # (Auto) [place] # (Auto) Eos # (Auto) Baso # (Auto) Seg Neutrophils % Seg Neuts % (Manual) Lymphocytes % (Manual) Seg Neutrophils # Seg Neutrophils # Man Lymphocytes # (Manual) D-Dimer ABG pH POC ABG pCO2 POC ABG pO2 ABG pO2 ABG HCO3 ABG O2 Saturation ABG Base Excess ABG Oxyhemoglobin ABG Sodium ABG Chloride ABG Glucose Oxyhemoglobin Carboxyhemoglobin Sodium Potassium Chloride Carbon Dioxide BUN Creatinine Glucose POC Glucose 267 H 218 H 124 H Hemoglobin A1c Magnesium Ferritin AST ALT Alkaline Phosphatase Lactate Dehydrogenase C-Reactive Protein Total Protein Albumin Arterial Blood Glucose Coronavirus (PCR) 06/07/21 06/07/21 06/08/21 11:58 15:59 07:59 WBC MCH MCHC RDW Lymph % (Auto) [place] % (Auto) Eos % (Auto) Lymph # (Auto) [place] # (Auto) Eos # (Auto) Baso # (Auto) Seg Neutrophils % Seg Neuts % (Manual) Lymphocytes % (Manual) Seg Neutrophils # Seg Neutrophils # Man Lymphocytes # (Manual) D-Dimer ABG pH POC ABG pCO2 POC ABG pO2 ABG pO2 ABG HCO3 ABG O2 Saturation ABG Base Excess ABG Oxyhemoglobin ABG Sodium ABG Chloride ABG Glucose Oxyhemoglobin Carboxyhemoglobin Sodium Potassium Chloride Carbon Dioxide BUN Creatinine Glucose POC Glucose 219 H 208 H 192 H Hemoglobin A1c Magnesium Ferritin AST ALT Alkaline Phosphatase Lactate Dehydrogenase C-Reactive Protein Total Protein Albumin Arterial Blood Glucose Coronavirus (PCR) 06/08/21 06/08/21 06/09/21 11:26 23:28 07:33 WBC MCH MCHC RDW Lymph % (Auto) [place] % (Auto) Eos % (Auto) Lymph # (Auto) [place] # (Auto) Eos # (Auto) Baso # (Auto) Seg Neutrophils % Seg Neuts % (Manual) Lymphocytes % (Manual) Seg Neutrophils # Seg Neutrophils # Man Lymphocytes # (Manual) D-Dimer ABG pH POC ABG pCO2 POC ABG pO2 ABG pO2 ABG HCO3 ABG O2 Saturation ABG Base Excess ABG Oxyhemoglobin ABG Sodium ABG Chloride ABG Glucose Oxyhemoglobin Carboxyhemoglobin Sodium Potassium Chloride Carbon Dioxide BUN Creatinine Glucose POC Glucose 307 H 138 H 145 H Hemoglobin A1c Magnesium Ferritin AST ALT Alkaline Phosphatase Lactate Dehydrogenase C-Reactive Protein Total Protein Albumin Arterial Blood Glucose Coronavirus (PCR) 06/09/21 06/09/21 06/09/21 11:01 15:47 21:43 WBC MCH MCHC RDW Lymph % (Auto) [place] % (Auto) Eos % (Auto) Lymph # (Auto) [place] # (Auto) Eos # (Auto) Baso # (Auto) Seg Neutrophils % Seg Neuts % (Manual) Lymphocytes % (Manual) Seg Neutrophils # Seg Neutrophils # Man Lymphocytes # (Manual) D-Dimer ABG pH POC ABG pCO2 POC ABG pO2 ABG pO2 ABG HCO3 ABG O2 Saturation ABG Base Excess ABG Oxyhemoglobin ABG Sodium ABG Chloride ABG Glucose Oxyhemoglobin Carboxyhemoglobin Sodium Potassium Chloride Carbon Dioxide BUN Creatinine Glucose POC Glucose 266 H 305 H 223 H Hemoglobin A1c Magnesium Ferritin AST ALT Alkaline Phosphatase Lactate Dehydrogenase C-Reactive Protein Total Protein Albumin Arterial Blood Glucose Coronavirus (PCR) 06/10/21 06/10/21 06/10/21 08:27 12:10 17:45 WBC MCH MCHC RDW Lymph % (Auto) [place] % (Auto) Eos % (Auto) Lymph # (Auto) [place] # (Auto) Eos # (Auto) Baso # (Auto) Seg Neutrophils % Seg Neuts % (Manual) Lymphocytes % (Manual) Seg Neutrophils # Seg Neutrophils # Man Lymphocytes # (Manual) D-Dimer ABG pH POC ABG pCO2 POC ABG pO2 ABG pO2 ABG HCO3 ABG O2 Saturation ABG Base Excess ABG Oxyhemoglobin ABG Sodium ABG Chloride ABG Glucose Oxyhemoglobin Carboxyhemoglobin Sodium Potassium Chloride Carbon Dioxide BUN Creatinine Glucose POC Glucose 174 H 306 H 210 H Hemoglobin A1c Magnesium Ferritin AST ALT Alkaline Phosphatase Lactate Dehydrogenase C-Reactive Protein Total Protein Albumin Arterial Blood Glucose Coronavirus (PCR) 06/10/21 06/11/21 06/11/21 21:45 09:38 09:38 WBC MCH MCHC RDW 20.9 H Lymph % (Auto) [place] % (Auto) Eos % (Auto) Lymph # (Auto) [place] # (Auto) Eos # (Auto) Baso # (Auto) Seg Neutrophils % Seg Neuts % (Manual) Lymphocytes % (Manual) Seg Neutrophils # Seg Neutrophils # Man Lymphocytes # (Manual) D-Dimer ABG pH POC ABG pCO2 POC ABG pO2 ABG pO2 ABG HCO3 ABG O2 Saturation ABG Base Excess ABG Oxyhemoglobin ABG Sodium ABG Chloride ABG Glucose Oxyhemoglobin Carboxyhemoglobin Sodium 135 L Potassium Chloride 90.8 L Carbon Dioxide 36 H BUN 29 H Creatinine 0.2 L Glucose 258 H POC Glucose 262 H Hemoglobin A1c Magnesium Ferritin AST ALT Alkaline Phosphatase Lactate Dehydrogenase C-Reactive Protein Total Protein Albumin Arterial Blood Glucose Coronavirus (PCR) 06/11/21 06/11/21 06/11/21 11:20 15:49 22:57 WBC MCH MCHC RDW Lymph % (Auto) [place] % (Auto) Eos % (Auto) Lymph # (Auto) [place] # (Auto) Eos # (Auto) Baso # (Auto) Seg Neutrophils % Seg Neuts % (Manual) Lymphocytes % (Manual) Seg Neutrophils # Seg Neutrophils # Man Lymphocytes # (Manual) D-Dimer ABG pH POC ABG pCO2 POC ABG pO2 ABG pO2 ABG HCO3 ABG O2 Saturation ABG Base Excess ABG Oxyhemoglobin ABG Sodium ABG Chloride ABG Glucose Oxyhemoglobin Carboxyhemoglobin Sodium Potassium Chloride Carbon Dioxide BUN Creatinine Glucose POC Glucose 269 H 206 H 211 H Hemoglobin A1c Magnesium Ferritin AST ALT Alkaline Phosphatase Lactate Dehydrogenase C-Reactive Protein Total Protein Albumin Arterial Blood Glucose Coronavirus (PCR) 06/12/21 06/12/21 06/12/21 08:07 11:24 18:08 WBC MCH MCHC RDW Lymph % (Auto) [place] % (Auto) Eos % (Auto) Lymph # (Auto) [place] # (Auto) Eos # (Auto) Baso # (Auto) Seg Neutrophils % Seg Neuts % (Manual) Lymphocytes % (Manual) Seg Neutrophils # Seg Neutrophils # Man Lymphocytes # (Manual) D-Dimer ABG pH POC ABG pCO2 POC ABG pO2 ABG pO2 ABG HCO3 ABG O2 Saturation ABG Base Excess ABG Oxyhemoglobin ABG Sodium ABG Chloride ABG Glucose Oxyhemoglobin Carboxyhemoglobin Sodium Potassium Chloride Carbon Dioxide BUN Creatinine Glucose POC Glucose 149 H 270 H 166 H Hemoglobin A1c Magnesium Ferritin AST ALT Alkaline Phosphatase Lactate Dehydrogenase C-Reactive Protein Total Protein Albumin Arterial Blood Glucose Coronavirus (PCR) 06/12/21 06/13/21 06/13/21 20:22 07:50 11:18 WBC MCH MCHC RDW Lymph % (Auto) [place] % (Auto) Eos % (Auto) Lymph # (Auto) [place] # (Auto) Eos # (Auto) Baso # (Auto) Seg Neutrophils % Seg Neuts % (Manual) Lymphocytes % (Manual) Seg Neutrophils # Seg Neutrophils # Man Lymphocytes # (Manual) D-Dimer ABG pH POC ABG pCO2 POC ABG pO2 ABG pO2 ABG HCO3 ABG O2 Saturation ABG Base Excess ABG Oxyhemoglobin ABG Sodium ABG Chloride ABG Glucose Oxyhemoglobin Carboxyhemoglobin Sodium Potassium Chloride Carbon Dioxide BUN Creatinine Glucose POC Glucose 155 H 163 H 293 H Hemoglobin A1c Magnesium Ferritin AST ALT Alkaline Phosphatase Lactate Dehydrogenase C-Reactive Protein Total Protein Albumin Arterial Blood Glucose Coronavirus (PCR) 06/13/21 06/13/21 06/14/21 16:41 21:00 07:41 WBC MCH MCHC RDW Lymph % (Auto) [place] % (Auto) Eos % (Auto) Lymph # (Auto) [place] # (Auto) Eos # (Auto) Baso # (Auto) Seg Neutrophils % Seg Neuts % (Manual) Lymphocytes % (Manual) Seg Neutrophils # Seg Neutrophils # Man Lymphocytes # (Manual) D-Dimer ABG pH POC ABG pCO2 POC ABG pO2 ABG pO2 ABG HCO3 ABG O2 Saturation ABG Base Excess ABG Oxyhemoglobin ABG Sodium ABG Chloride ABG Glucose Oxyhemoglobin Carboxyhemoglobin Sodium Potassium Chloride Carbon Dioxide BUN Creatinine Glucose POC Glucose 232 H 183 H 52 L Hemoglobin A1c Magnesium Ferritin AST ALT Alkaline Phosphatase Lactate Dehydrogenase C-Reactive Protein Total Protein Albumin Arterial Blood Glucose Coronavirus (PCR) 06/14/21 06/14/21 06/14/21 11:44 17:44 21:44 WBC MCH MCHC RDW Lymph % (Auto) [place] % (Auto) Eos % (Auto) Lymph # (Auto) [place] # (Auto) Eos # (Auto) Baso # (Auto) Seg Neutrophils % Seg Neuts % (Manual) Lymphocytes % (Manual) Seg Neutrophils # Seg Neutrophils # Man Lymphocytes # (Manual) D-Dimer ABG pH POC ABG pCO2 POC ABG pO2 ABG pO2 ABG HCO3 ABG O2 Saturation ABG Base Excess ABG Oxyhemoglobin ABG Sodium ABG Chloride ABG Glucose Oxyhemoglobin Carboxyhemoglobin Sodium Potassium Chloride Carbon Dioxide BUN Creatinine Glucose POC Glucose 205 H 293 H 288 H Hemoglobin A1c Magnesium Ferritin AST ALT Alkaline Phosphatase Lactate Dehydrogenase C-Reactive Protein Total Protein Albumin Arterial Blood Glucose Coronavirus (PCR) 06/15/21 06/15/21 06/15/21 08:00 08:00 11:40 WBC MCH 33 H MCHC 35 H RDW 20.3 H Lymph % (Auto) [place] % (Auto) Eos % (Auto) Lymph # (Auto) [place] # (Auto) Eos # (Auto) Baso # (Auto) Seg Neutrophils % Seg Neuts % (Manual) Lymphocytes % (Manual) Seg Neutrophils # Seg Neutrophils # Man Lymphocytes # (Manual) D-Dimer ABG pH POC ABG pCO2 POC ABG pO2 ABG pO2 ABG HCO3 ABG O2 Saturation ABG Base Excess ABG Oxyhemoglobin ABG Sodium ABG Chloride ABG Glucose Oxyhemoglobin Carboxyhemoglobin Sodium Potassium 3.2 L Chloride 95.3 L Carbon Dioxide 32 H BUN 23 H Creatinine 0.2 L Glucose 103 H POC Glucose 204 H Hemoglobin A1c Magnesium Ferritin AST ALT Alkaline Phosphatase Lactate Dehydrogenase C-Reactive Protein Total Protein Albumin Arterial Blood Glucose Coronavirus (PCR) 06/15/21 06/15/21 06/16/21 16:17 22:00 11:43 WBC MCH MCHC RDW Lymph % (Auto) [place] % (Auto) Eos % (Auto) Lymph # (Auto) [place] # (Auto) Eos # (Auto) Baso # (Auto) Seg Neutrophils % Seg Neuts % (Manual) Lymphocytes % (Manual) Seg Neutrophils # Seg Neutrophils # Man Lymphocytes # (Manual) D-Dimer ABG pH POC ABG pCO2 POC ABG pO2 ABG pO2 ABG HCO3 ABG O2 Saturation ABG Base Excess ABG Oxyhemoglobin ABG Sodium ABG Chloride ABG Glucose Oxyhemoglobin Carboxyhemoglobin Sodium Potassium Chloride Carbon Dioxide BUN Creatinine Glucose POC Glucose 295 H 233 H 201 H Hemoglobin A1c Magnesium Ferritin AST ALT Alkaline Phosphatase Lactate Dehydrogenase C-Reactive Protein Total Protein Albumin Arterial Blood Glucose Coronavirus (PCR) 06/16/21 06/16/21 06/17/21 17:21 21:27 07:12 WBC MCH MCHC RDW Lymph % (Auto) [place] % (Auto) Eos % (Auto) Lymph # (Auto) [place] # (Auto) Eos # (Auto) Baso # (Auto) Seg Neutrophils % Seg Neuts % (Manual) Lymphocytes % (Manual) Seg Neutrophils # Seg Neutrophils # Man Lymphocytes # (Manual) D-Dimer ABG pH POC ABG pCO2 POC ABG pO2 ABG pO2 ABG HCO3 ABG O2 Saturation ABG Base Excess ABG Oxyhemoglobin ABG Sodium ABG Chloride ABG Glucose Oxyhemoglobin Carboxyhemoglobin Sodium Potassium Chloride Carbon Dioxide BUN Creatinine Glucose POC Glucose 299 H 290 H 67 L Hemoglobin A1c Magnesium Ferritin AST ALT Alkaline Phosphatase Lactate Dehydrogenase C-Reactive Protein Total Protein Albumin Arterial Blood Glucose Coronavirus (PCR) 06/17/21 06/17/21 06/17/21 11:53 17:02 22:25 WBC MCH MCHC RDW Lymph % (Auto) [place] % (Auto) Eos % (Auto) Lymph # (Auto) [place] # (Auto) Eos # (Auto) Baso # (Auto) Seg Neutrophils % Seg Neuts % (Manual) Lymphocytes % (Manual) Seg Neutrophils # Seg Neutrophils # Man Lymphocytes # (Manual) D-Dimer ABG pH POC ABG pCO2 POC ABG pO2 ABG pO2 ABG HCO3 ABG O2 Saturation ABG Base Excess ABG Oxyhemoglobin ABG Sodium ABG Chloride ABG Glucose Oxyhemoglobin Carboxyhemoglobin Sodium Potassium Chloride Carbon Dioxide BUN Creatinine Glucose POC Glucose 199 H 362 H 235 H Hemoglobin A1c Magnesium Ferritin AST ALT Alkaline Phosphatase Lactate Dehydrogenase C-Reactive Protein Total Protein Albumin Arterial Blood Glucose Coronavirus (PCR) 06/18/21 06/18/21 06/18/21 08:00 11:48 16:40 WBC MCH MCHC RDW Lymph % (Auto) [place] % (Auto) Eos % (Auto) Lymph # (Auto) [place] # (Auto) Eos # (Auto) Baso # (Auto) Seg Neutrophils % Seg Neuts % (Manual) Lymphocytes % (Manual) Seg Neutrophils # Seg Neutrophils # Man Lymphocytes # (Manual) D-Dimer ABG pH POC ABG pCO2 POC ABG pO2 ABG pO2 ABG HCO3 ABG O2 Saturation ABG Base Excess ABG Oxyhemoglobin ABG Sodium ABG Chloride ABG Glucose Oxyhemoglobin Carboxyhemoglobin Sodium Potassium Chloride Carbon Dioxide BUN Creatinine Glucose POC Glucose 62 L 211 H 305 H Hemoglobin A1c Magnesium Ferritin AST ALT Alkaline Phosphatase Lactate Dehydrogenase C-Reactive Protein Total Protein Albumin Arterial Blood Glucose Coronavirus (PCR) 06/18/21 06/19/21 06/19/21 21:26 07:27 11:32 WBC MCH MCHC RDW Lymph % (Auto) [place] % (Auto) Eos % (Auto) Lymph # (Auto) [place] # (Auto) Eos # (Auto) Baso # (Auto) Seg Neutrophils % Seg Neuts % (Manual) Lymphocytes % (Manual) Seg Neutrophils # Seg Neutrophils # Man Lymphocytes # (Manual) D-Dimer ABG pH POC ABG pCO2 POC ABG pO2 ABG pO2 ABG HCO3 ABG O2 Saturation ABG Base Excess ABG Oxyhemoglobin ABG Sodium ABG Chloride ABG Glucose Oxyhemoglobin Carboxyhemoglobin Sodium Potassium Chloride Carbon Dioxide BUN Creatinine Glucose POC Glucose 149 H 60 L 208 H Hemoglobin A1c Magnesium Ferritin AST ALT Alkaline Phosphatase Lactate Dehydrogenase C-Reactive Protein Total Protein Albumin Arterial Blood Glucose Coronavirus (PCR) 06/19/21 06/19/21 06/20/21 16:06 22:28 07:48 WBC MCH MCHC RDW Lymph % (Auto) [place] % (Auto) Eos % (Auto) Lymph # (Auto) [place] # (Auto) Eos # (Auto) Baso # (Auto) Seg Neutrophils % Seg Neuts % (Manual) Lymphocytes % (Manual) Seg Neutrophils # Seg Neutrophils # Man Lymphocytes # (Manual) D-Dimer ABG pH POC ABG pCO2 POC ABG pO2 ABG pO2 ABG HCO3 ABG O2 Saturation ABG Base Excess ABG Oxyhemoglobin ABG Sodium ABG Chloride ABG Glucose Oxyhemoglobin Carboxyhemoglobin Sodium Potassium Chloride Carbon Dioxide BUN Creatinine Glucose POC Glucose 266 H 166 H 58 L Hemoglobin A1c Magnesium Ferritin AST ALT Alkaline Phosphatase Lactate Dehydrogenase C-Reactive Protein Total Protein Albumin Arterial Blood Glucose Coronavirus (PCR) 06/20/21 06/20/21 06/20/21 09:09 11:04 16:01 WBC MCH MCHC RDW Lymph % (Auto) [place] % (Auto) Eos % (Auto) Lymph # (Auto) [place] # (Auto) Eos # (Auto) Baso # (Auto) Seg Neutrophils % Seg Neuts % (Manual) Lymphocytes % (Manual) Seg Neutrophils # Seg Neutrophils # Man Lymphocytes # (Manual) D-Dimer ABG pH POC ABG pCO2 POC ABG pO2 ABG pO2 ABG HCO3 ABG O2 Saturation ABG Base Excess ABG Oxyhemoglobin ABG Sodium ABG Chloride ABG Glucose Oxyhemoglobin Carboxyhemoglobin Sodium Potassium Chloride Carbon Dioxide BUN Creatinine Glucose POC Glucose 146 H 225 H 330 H Hemoglobin A1c Magnesium Ferritin AST ALT Alkaline Phosphatase Lactate Dehydrogenase C-Reactive Protein Total Protein Albumin Arterial Blood Glucose Coronavirus (PCR) 06/20/21 06/21/21 06/21/21 20:46 06:45 06:45 WBC MCH MCHC RDW 20.0 H Lymph % (Auto) [place] % (Auto) Eos % (Auto) Lymph # (Auto) [place] # (Auto) Eos # (Auto) Baso # (Auto) Seg Neutrophils % Seg Neuts % (Manual) Lymphocytes % (Manual) Seg Neutrophils # Seg Neutrophils # Man Lymphocytes # (Manual) D-Dimer ABG pH POC ABG pCO2 POC ABG pO2 ABG pO2 ABG HCO3 ABG O2 Saturation ABG Base Excess ABG Oxyhemoglobin ABG Sodium ABG Chloride ABG Glucose Oxyhemoglobin Carboxyhemoglobin Sodium Potassium 2.9 L* Chloride 95.0 L Carbon Dioxide 31 H BUN 23 H Creatinine 0.2 L Glucose 45 L POC Glucose 215 H Hemoglobin A1c Magnesium Ferritin AST ALT Alkaline Phosphatase Lactate Dehydrogenase C-Reactive Protein Total Protein Albumin Arterial Blood Glucose Coronavirus (PCR) 06/21/21 06/21/21 06/21/21 07:38 09:06 12:40 WBC MCH MCHC RDW Lymph % (Auto) [place] % (Auto) Eos % (Auto) Lymph # (Auto) [place] # (Auto) Eos # (Auto) Baso # (Auto) Seg Neutrophils % Seg Neuts % (Manual) Lymphocytes % (Manual) Seg Neutrophils # Seg Neutrophils # Man Lymphocytes # (Manual) D-Dimer ABG pH POC ABG pCO2 POC ABG pO2 ABG pO2 ABG HCO3 ABG O2 Saturation ABG Base Excess ABG Oxyhemoglobin ABG Sodium ABG Chloride ABG Glucose Oxyhemoglobin Carboxyhemoglobin Sodium Potassium Chloride Carbon Dioxide BUN Creatinine Glucose POC Glucose 50 L 196 H 205 H Hemoglobin A1c Magnesium Ferritin AST ALT Alkaline Phosphatase Lactate Dehydrogenase C-Reactive Protein Total Protein Albumin Arterial Blood Glucose Coronavirus (PCR) 06/21/21 06/22/21 06/22/21 21:36 06:25 07:15 WBC MCH MCHC RDW Lymph % (Auto) [place] % (Auto) Eos % (Auto) Lymph # (Auto) [place] # (Auto) Eos # (Auto) Baso # (Auto) Seg Neutrophils % Seg Neuts % (Manual) Lymphocytes % (Manual) Seg Neutrophils # Seg Neutrophils # Man Lymphocytes # (Manual) D-Dimer ABG pH POC ABG pCO2 POC ABG pO2 ABG pO2 ABG HCO3 ABG O2 Saturation ABG Base Excess ABG Oxyhemoglobin ABG Sodium ABG Chloride ABG Glucose Oxyhemoglobin Carboxyhemoglobin Sodium Potassium Chloride Carbon Dioxide BUN 20 H Creatinine 0.2 L Glucose POC Glucose 245 H 66 L Hemoglobin A1c Magnesium Ferritin AST ALT Alkaline Phosphatase Lactate Dehydrogenase C-Reactive Protein Total Protein Albumin Arterial Blood Glucose Coronavirus (PCR) 06/22/21 06/22/21 06/22/21 11:03 16:07 22:03 WBC MCH MCHC RDW Lymph % (Auto) [place] % (Auto) Eos % (Auto) Lymph # (Auto) [place] # (Auto) Eos # (Auto) Baso # (Auto) Seg Neutrophils % Seg Neuts % (Manual) Lymphocytes % (Manual) Seg Neutrophils # Seg Neutrophils # Man Lymphocytes # (Manual) D-Dimer ABG pH POC ABG pCO2 POC ABG pO2 ABG pO2 ABG HCO3 ABG O2 Saturation ABG Base Excess ABG Oxyhemoglobin ABG Sodium ABG Chloride ABG Glucose Oxyhemoglobin Carboxyhemoglobin Sodium Potassium Chloride Carbon Dioxide BUN Creatinine Glucose POC Glucose 184 H 326 H 138 H Hemoglobin A1c Magnesium Ferritin AST ALT Alkaline Phosphatase Lactate Dehydrogenase C-Reactive Protein Total Protein Albumin Arterial Blood Glucose Coronavirus (PCR) 06/23/21 06/23/21 06/23/21 07:19 10:34 16:35 WBC MCH MCHC RDW Lymph % (Auto) [place] % (Auto) Eos % (Auto) Lymph # (Auto) [place] # (Auto) Eos # (Auto) Baso # (Auto) Seg Neutrophils % Seg Neuts % (Manual) Lymphocytes % (Manual) Seg Neutrophils # Seg Neutrophils # Man Lymphocytes # (Manual) D-Dimer ABG pH POC ABG pCO2 POC ABG pO2 ABG pO2 ABG HCO3 ABG O2 Saturation ABG Base Excess ABG Oxyhemoglobin ABG Sodium ABG Chloride ABG Glucose Oxyhemoglobin Carboxyhemoglobin Sodium Potassium Chloride Carbon Dioxide BUN Creatinine Glucose POC Glucose 69 L 218 H 326 H Hemoglobin A1c Magnesium Ferritin AST ALT Alkaline Phosphatase Lactate Dehydrogenase C-Reactive Protein Total Protein Albumin Arterial Blood Glucose Coronavirus (PCR) 06/23/21 06/24/21 06/24/21 22:44 11:41 16:54 WBC MCH MCHC RDW Lymph % (Auto) [place] % (Auto) Eos % (Auto) Lymph # (Auto) [place] # (Auto) Eos # (Auto) Baso # (Auto) Seg Neutrophils % Seg Neuts % (Manual) Lymphocytes % (Manual) Seg Neutrophils # Seg Neutrophils # Man Lymphocytes # (Manual) D-Dimer ABG pH POC ABG pCO2 POC ABG pO2 ABG pO2 ABG HCO3 ABG O2 Saturation ABG Base Excess ABG Oxyhemoglobin ABG Sodium ABG Chloride ABG Glucose Oxyhemoglobin Carboxyhemoglobin Sodium Potassium Chloride Carbon Dioxide BUN Creatinine Glucose POC Glucose 252 H 217 H 357 H Hemoglobin A1c Magnesium Ferritin AST ALT Alkaline Phosphatase Lactate Dehydrogenase C-Reactive Protein Total Protein Albumin Arterial Blood Glucose Coronavirus (PCR) 06/24/21 06/25/21 06/25/21 20:40 11:51 16:47 WBC MCH MCHC RDW Lymph % (Auto) [place] % (Auto) Eos % (Auto) Lymph # (Auto) [place] # (Auto) Eos # (Auto) Baso # (Auto) Seg Neutrophils % Seg Neuts % (Manual) Lymphocytes % (Manual) Seg Neutrophils # Seg Neutrophils # Man Lymphocytes # (Manual) D-Dimer ABG pH POC ABG pCO2 POC ABG pO2 ABG pO2 ABG HCO3 ABG O2 Saturation ABG Base Excess ABG Oxyhemoglobin ABG Sodium ABG Chloride ABG Glucose Oxyhemoglobin Carboxyhemoglobin Sodium Potassium Chloride Carbon Dioxide BUN Creatinine Glucose POC Glucose 239 H 182 H 229 H Hemoglobin A1c Magnesium Ferritin AST ALT Alkaline Phosphatase Lactate Dehydrogenase C-Reactive Protein Total Protein Albumin Arterial Blood Glucose Coronavirus (PCR) 06/25/21 06/26/21 06/26/21 22:27 07:20 12:19 WBC MCH MCHC RDW Lymph % (Auto) [place] % (Auto) Eos % (Auto) Lymph # (Auto) [place] # (Auto) Eos # (Auto) Baso # (Auto) Seg Neutrophils % Seg Neuts % (Manual) Lymphocytes % (Manual) Seg Neutrophils # Seg Neutrophils # Man Lymphocytes # (Manual) D-Dimer ABG pH POC ABG pCO2 POC ABG pO2 ABG pO2 ABG HCO3 ABG O2 Saturation ABG Base Excess ABG Oxyhemoglobin ABG Sodium ABG Chloride ABG Glucose Oxyhemoglobin Carboxyhemoglobin Sodium Potassium 3.2 L D Chloride Carbon Dioxide BUN 20 H Creatinine 0.3 L Glucose POC Glucose 209 H 273 H Hemoglobin A1c Magnesium Ferritin AST ALT 77 H Alkaline Phosphatase Lactate Dehydrogenase C-Reactive Protein Total Protein Albumin 3.3 L Arterial Blood Glucose Coronavirus (PCR) 06/26/21 06/26/21 06/27/21 16:52 20:55 07:14 WBC MCH MCHC RDW Lymph % (Auto) [place] % (Auto) Eos % (Auto) Lymph # (Auto) [place] # (Auto) Eos # (Auto) Baso # (Auto) Seg Neutrophils % Seg Neuts % (Manual) Lymphocytes % (Manual) Seg Neutrophils # Seg Neutrophils # Man Lymphocytes # (Manual) D-Dimer ABG pH POC ABG pCO2 POC ABG pO2 ABG pO2 ABG HCO3 ABG O2 Saturation ABG Base Excess ABG Oxyhemoglobin ABG Sodium ABG Chloride ABG Glucose Oxyhemoglobin Carboxyhemoglobin Sodium Potassium Chloride Carbon Dioxide 31 H BUN 19 H Creatinine 0.2 L Glucose 112 H POC Glucose 326 H 220 H Hemoglobin A1c Magnesium Ferritin AST ALT Alkaline Phosphatase Lactate Dehydrogenase C-Reactive Protein Total Protein Albumin Arterial Blood Glucose Coronavirus (PCR) 06/27/21 06/27/21 06/27/21 07:29 10:54 15:49 WBC MCH MCHC RDW Lymph % (Auto) [place] % (Auto) Eos % (Auto) Lymph # (Auto) [place] # (Auto) Eos # (Auto) Baso # (Auto) Seg Neutrophils % Seg Neuts % (Manual) Lymphocytes % (Manual) Seg Neutrophils # Seg Neutrophils # Man Lymphocytes # (Manual) D-Dimer ABG pH POC ABG pCO2 POC ABG pO2 ABG pO2 ABG HCO3 ABG O2 Saturation ABG Base Excess ABG Oxyhemoglobin ABG Sodium ABG Chloride ABG Glucose Oxyhemoglobin Carboxyhemoglobin Sodium Potassium Chloride Carbon Dioxide BUN Creatinine Glucose POC Glucose 115 H 228 H 240 H Hemoglobin A1c Magnesium Ferritin AST ALT Alkaline Phosphatase Lactate Dehydrogenase C-Reactive Protein Total Protein Albumin Arterial Blood Glucose Coronavirus (PCR) 06/28/21 06/28/21 06/28/21 05:43 05:43 07:13 WBC MCH 33 H MCHC RDW 19.8 H Lymph % (Auto) [place] % (Auto) Eos % (Auto) Lymph # (Auto) [place] # (Auto) Eos # (Auto) Baso # (Auto) Seg Neutrophils % Seg Neuts % (Manual) Lymphocytes % (Manual) Seg Neutrophils # Seg Neutrophils # Man Lymphocytes # (Manual) D-Dimer ABG pH POC ABG pCO2 POC ABG pO2 ABG pO2 ABG HCO3 ABG O2 Saturation ABG Base Excess ABG Oxyhemoglobin ABG Sodium ABG Chloride ABG Glucose Oxyhemoglobin Carboxyhemoglobin Sodium Potassium 3.3 L Chloride Carbon Dioxide BUN 22 H Creatinine 0.2 L Glucose POC Glucose 69 L Hemoglobin A1c Magnesium Ferritin AST ALT 63 H Alkaline Phosphatase Lactate Dehydrogenase C-Reactive Protein Total Protein Albumin 3.3 L Arterial Blood Glucose Coronavirus (PCR) 06/28/21 06/28/21 06/28/21 12:18 15:37 21:01 WBC MCH MCHC RDW Lymph % (Auto) [place] % (Auto) Eos % (Auto) Lymph # (Auto) [place] # (Auto) Eos # (Auto) Baso # (Auto) Seg Neutrophils % Seg Neuts % (Manual) Lymphocytes % (Manual) Seg Neutrophils # Seg Neutrophils # Man Lymphocytes # (Manual) D-Dimer ABG pH POC ABG pCO2 POC ABG pO2 ABG pO2 ABG HCO3 ABG O2 Saturation ABG Base Excess ABG Oxyhemoglobin ABG Sodium ABG Chloride ABG Glucose Oxyhemoglobin Carboxyhemoglobin Sodium Potassium Chloride Carbon Dioxide BUN Creatinine Glucose POC Glucose 154 H 201 H 191 H Hemoglobin A1c Magnesium Ferritin AST ALT Alkaline Phosphatase Lactate Dehydrogenase C-Reactive Protein Total Protein Albumin Arterial Blood Glucose Coronavirus (PCR) 06/29/21 06/29/21 06/29/21 11:55 15:47 21:06 WBC MCH MCHC RDW Lymph % (Auto) [place] % (Auto) Eos % (Auto) Lymph # (Auto) [place] # (Auto) Eos # (Auto) Baso # (Auto) Seg Neutrophils % Seg Neuts % (Manual) Lymphocytes % (Manual) Seg Neutrophils # Seg Neutrophils # Man Lymphocytes # (Manual) D-Dimer ABG pH POC ABG pCO2 POC ABG pO2 ABG pO2 ABG HCO3 ABG O2 Saturation ABG Base Excess ABG Oxyhemoglobin ABG Sodium ABG Chloride ABG Glucose Oxyhemoglobin Carboxyhemoglobin Sodium Potassium Chloride Carbon Dioxide BUN Creatinine Glucose POC Glucose 238 H 249 H 155 H Hemoglobin A1c Magnesium Ferritin AST ALT Alkaline Phosphatase Lactate Dehydrogenase C-Reactive Protein Total Protein Albumin Arterial Blood Glucose Coronavirus (PCR) 06/30/21 06/30/21 06/30/21 04:00 07:50 11:50 WBC MCH MCHC RDW Lymph % (Auto) [place] % (Auto) Eos % (Auto) Lymph # (Auto) [place] # (Auto) Eos # (Auto) Baso # (Auto) Seg Neutrophils % Seg Neuts % (Manual) Lymphocytes % (Manual) Seg Neutrophils # Seg Neutrophils # Man Lymphocytes # (Manual) D-Dimer ABG pH POC ABG pCO2 POC ABG pO2 ABG pO2 ABG HCO3 ABG O2 Saturation ABG Base Excess ABG Oxyhemoglobin ABG Sodium ABG Chloride ABG Glucose Oxyhemoglobin Carboxyhemoglobin Sodium Potassium 3.5 L Chloride Carbon Dioxide BUN 18 H Creatinine 0.3 L Glucose 111 H POC Glucose 117 H 250 H Hemoglobin A1c Magnesium Ferritin AST ALT Alkaline Phosphatase Lactate Dehydrogenase C-Reactive Protein Total Protein Albumin Arterial Blood Glucose Coronavirus (PCR) 06/30/21 06/30/21 07/01/21 16:05 21:02 07:26 WBC MCH MCHC RDW Lymph % (Auto) [place] % (Auto) Eos % (Auto) Lymph # (Auto) [place] # (Auto) Eos # (Auto) Baso # (Auto) Seg Neutrophils % Seg Neuts % (Manual) Lymphocytes % (Manual) Seg Neutrophils # Seg Neutrophils # Man Lymphocytes # (Manual) D-Dimer ABG pH POC ABG pCO2 POC ABG pO2 ABG pO2 ABG HCO3 ABG O2 Saturation ABG Base Excess ABG Oxyhemoglobin ABG Sodium ABG Chloride ABG Glucose Oxyhemoglobin Carboxyhemoglobin Sodium Potassium Chloride Carbon Dioxide BUN Creatinine Glucose POC Glucose 250 H 217 H 111 H Hemoglobin A1c Magnesium Ferritin AST ALT Alkaline Phosphatase Lactate Dehydrogenase C-Reactive Protein Total Protein Albumin Arterial Blood Glucose Coronavirus (PCR) 07/01/21 07/01/21 07/01/21 11:06 15:48 21:31 WBC MCH MCHC RDW Lymph % (Auto) [place] % (Auto) Eos % (Auto) Lymph # (Auto) [place] # (Auto) Eos # (Auto) Baso # (Auto) Seg Neutrophils % Seg Neuts % (Manual) Lymphocytes % (Manual) Seg Neutrophils # Seg Neutrophils # Man Lymphocytes # (Manual) D-Dimer ABG pH POC ABG pCO2 POC ABG pO2 ABG pO2 ABG HCO3 ABG O2 Saturation ABG Base Excess ABG Oxyhemoglobin ABG Sodium ABG Chloride ABG Glucose Oxyhemoglobin Carboxyhemoglobin Sodium Potassium Chloride Carbon Dioxide BUN Creatinine Glucose POC Glucose 229 H 239 H 199 H Hemoglobin A1c Magnesium Ferritin AST ALT Alkaline Phosphatase Lactate Dehydrogenase C-Reactive Protein Total Protein Albumin Arterial Blood Glucose Coronavirus (PCR) 07/02/21 07/02/21 07/02/21 11:50 16:44 21:49 WBC MCH MCHC RDW Lymph % (Auto) [place] % (Auto) Eos % (Auto) Lymph # (Auto) [place] # (Auto) Eos # (Auto) Baso # (Auto) Seg Neutrophils % Seg Neuts % (Manual) Lymphocytes % (Manual) Seg Neutrophils # Seg Neutrophils # Man Lymphocytes # (Manual) D-Dimer ABG pH POC ABG pCO2 POC ABG pO2 ABG pO2 ABG HCO3 ABG O2 Saturation ABG Base Excess ABG Oxyhemoglobin ABG Sodium ABG Chloride ABG Glucose Oxyhemoglobin Carboxyhemoglobin Sodium Potassium Chloride Carbon Dioxide BUN Creatinine Glucose POC Glucose 230 H 203 H 197 H Hemoglobin A1c Magnesium Ferritin AST ALT Alkaline Phosphatase Lactate Dehydrogenase C-Reactive Protein Total Protein Albumin Arterial Blood Glucose Coronavirus (PCR) 07/03/21 07/03/21 07/03/21 05:46 05:46 11:59 WBC MCH MCHC RDW 19.6 H Lymph % (Auto) [place] % (Auto) Eos % (Auto) Lymph # (Auto) [place] # (Auto) Eos # (Auto) Baso # (Auto) Seg Neutrophils % Seg Neuts % (Manual) Lymphocytes % (Manual) Seg Neutrophils # Seg Neutrophils # Man Lymphocytes # (Manual) D-Dimer ABG pH POC ABG pCO2 POC ABG pO2 ABG pO2 ABG HCO3 ABG O2 Saturation ABG Base Excess ABG Oxyhemoglobin ABG Sodium ABG Chloride ABG Glucose Oxyhemoglobin Carboxyhemoglobin Sodium Potassium 3.2 L Chloride Carbon Dioxide BUN Creatinine 0.3 L Glucose POC Glucose 145 H Hemoglobin A1c Magnesium Ferritin AST ALT Alkaline Phosphatase Lactate Dehydrogenase C-Reactive Protein Total Protein Albumin Arterial Blood Glucose Coronavirus (PCR) 07/03/21 07/03/21 07/04/21 16:40 22:00 06:35 WBC MCH MCHC RDW Lymph % (Auto) [place] % (Auto) Eos % (Auto) Lymph # (Auto) [place] # (Auto) Eos # (Auto) Baso # (Auto) Seg Neutrophils % Seg Neuts % (Manual) Lymphocytes % (Manual) Seg Neutrophils # Seg Neutrophils # Man Lymphocytes # (Manual) D-Dimer ABG pH POC ABG pCO2 POC ABG pO2 ABG pO2 ABG HCO3 ABG O2 Saturation ABG Base Excess ABG Oxyhemoglobin ABG Sodium ABG Chloride ABG Glucose Oxyhemoglobin Carboxyhemoglobin Sodium Potassium Chloride Carbon Dioxide BUN Creatinine 0.3 L Glucose 118 H POC Glucose 176 H 127 H Hemoglobin A1c Magnesium Ferritin AST ALT Alkaline Phosphatase Lactate Dehydrogenase C-Reactive Protein Total Protein Albumin Arterial Blood Glucose Coronavirus (PCR) 07/04/21 07/04/21 07/05/21 12:30 16:38 08:37 WBC MCH MCHC RDW Lymph % (Auto) [place] % (Auto) Eos % (Auto) Lymph # (Auto) [place] # (Auto) Eos # (Auto) Baso # (Auto) Seg Neutrophils % Seg Neuts % (Manual) Lymphocytes % (Manual) Seg Neutrophils # Seg Neutrophils # Man Lymphocytes # (Manual) D-Dimer ABG pH POC ABG pCO2 POC ABG pO2 ABG pO2 ABG HCO3 ABG O2 Saturation ABG Base Excess ABG Oxyhemoglobin ABG Sodium ABG Chloride ABG Glucose Oxyhemoglobin Carboxyhemoglobin Sodium Potassium Chloride Carbon Dioxide BUN Creatinine Glucose POC Glucose 162 H 205 H 115 H Hemoglobin A1c Magnesium Ferritin AST ALT Alkaline Phosphatase Lactate Dehydrogenase C-Reactive Protein Total Protein Albumin Arterial Blood Glucose Coronavirus (PCR) 07/05/21 07/05/21 07/05/21 10:57 16:42 21:14 WBC MCH MCHC RDW Lymph % (Auto) [place] % (Auto) Eos % (Auto) Lymph # (Auto) [place] # (Auto) Eos # (Auto) Baso # (Auto) Seg Neutrophils % Seg Neuts % (Manual) Lymphocytes % (Manual) Seg Neutrophils # Seg Neutrophils # Man Lymphocytes # (Manual) D-Dimer ABG pH POC ABG pCO2 POC ABG pO2 ABG pO2 ABG HCO3 ABG O2 Saturation ABG Base Excess ABG Oxyhemoglobin ABG Sodium ABG Chloride ABG Glucose Oxyhemoglobin Carboxyhemoglobin Sodium Potassium Chloride Carbon Dioxide BUN Creatinine Glucose POC Glucose 151 H 184 H 130 H Hemoglobin A1c Magnesium Ferritin AST ALT Alkaline Phosphatase Lactate Dehydrogenase C-Reactive Protein Total Protein Albumin Arterial Blood Glucose Coronavirus (PCR) 07/06/21 07/06/21 07/06/21 07:31 11:49 16:46 WBC MCH MCHC RDW Lymph % (Auto) [place] % (Auto) Eos % (Auto) Lymph # (Auto) [place] # (Auto) Eos # (Auto) Baso # (Auto) Seg Neutrophils % Seg Neuts % (Manual) Lymphocytes % (Manual) Seg Neutrophils # Seg Neutrophils # Man Lymphocytes # (Manual) D-Dimer ABG pH POC ABG pCO2 POC ABG pO2 ABG pO2 ABG HCO3 ABG O2 Saturation ABG Base Excess ABG Oxyhemoglobin ABG Sodium ABG Chloride ABG Glucose Oxyhemoglobin Carboxyhemoglobin Sodium Potassium Chloride Carbon Dioxide BUN Creatinine Glucose POC Glucose 106 H 173 H 205 H Hemoglobin A1c Magnesium Ferritin AST ALT Alkaline Phosphatase Lactate Dehydrogenase C-Reactive Protein Total Protein Albumin Arterial Blood Glucose Coronavirus (PCR) 07/06/21 07/07/21 07/07/21 21:38 06:00 06:00 WBC 16.1 H MCH MCHC RDW 18.8 H Lymph % (Auto) [place] % (Auto) Eos % (Auto) Lymph # (Auto) [place] # (Auto) 1.1 H Eos # (Auto) Baso # (Auto) 0.2 H Seg Neutrophils % 74.9 H Seg Neuts % (Manual) Lymphocytes % (Manual) Seg Neutrophils # 12.1 H Seg Neutrophils # Man Lymphocytes # (Manual) D-Dimer ABG pH POC ABG pCO2 POC ABG pO2 ABG pO2 ABG HCO3 ABG O2 Saturation ABG Base Excess ABG Oxyhemoglobin ABG Sodium ABG Chloride ABG Glucose Oxyhemoglobin Carboxyhemoglobin Sodium Potassium 3.5 L D Chloride Carbon Dioxide BUN 6 L Creatinine < 0.2 L Glucose 106 H POC Glucose 120 H Hemoglobin A1c Magnesium Ferritin AST ALT Alkaline Phosphatase Lactate Dehydrogenase C-Reactive Protein Total Protein Albumin Arterial Blood Glucose Coronavirus (PCR) 07/07/21 07/07/21 07/07/21 07:10 11:53 15:53 WBC MCH MCHC RDW Lymph % (Auto) [place] % (Auto) Eos % (Auto) Lymph # (Auto) [place] # (Auto) Eos # (Auto) Baso # (Auto) Seg Neutrophils % Seg Neuts % (Manual) Lymphocytes % (Manual) Seg Neutrophils # Seg Neutrophils # Man Lymphocytes # (Manual) D-Dimer ABG pH POC ABG pCO2 POC ABG pO2 ABG pO2 ABG HCO3 ABG O2 Saturation ABG Base Excess ABG Oxyhemoglobin ABG Sodium ABG Chloride ABG Glucose Oxyhemoglobin Carboxyhemoglobin Sodium Potassium Chloride Carbon Dioxide BUN Creatinine Glucose POC Glucose 132 H 169 H 242 H Hemoglobin A1c Magnesium Ferritin AST ALT Alkaline Phosphatase Lactate Dehydrogenase C-Reactive Protein Total Protein Albumin Arterial Blood Glucose Coronavirus (PCR) 07/07/21 07/08/21 07/08/21 21:41 08:09 12:20 WBC MCH MCHC RDW Lymph % (Auto) [place] % (Auto) Eos % (Auto) Lymph # (Auto) [place] # (Auto) Eos # (Auto) Baso # (Auto) Seg Neutrophils % Seg Neuts % (Manual) Lymphocytes % (Manual) Seg Neutrophils # Seg Neutrophils # Man Lymphocytes # (Manual) D-Dimer ABG pH POC ABG pCO2 POC ABG pO2 ABG pO2 ABG HCO3 ABG O2 Saturation ABG Base Excess ABG Oxyhemoglobin ABG Sodium ABG Chloride ABG Glucose Oxyhemoglobin Carboxyhemoglobin Sodium Potassium Chloride Carbon Dioxide BUN Creatinine Glucose POC Glucose 128 H 132 H 179 H Hemoglobin A1c Magnesium Ferritin AST ALT Alkaline Phosphatase Lactate Dehydrogenase C-Reactive Protein Total Protein Albumin Arterial Blood Glucose Coronavirus (PCR) 07/08/21 07/08/21 07/08/21 16:37 21:45 22:44 WBC MCH MCHC RDW Lymph % (Auto) [place] % (Auto) Eos % (Auto) Lymph # (Auto) [place] # (Auto) Eos # (Auto) Baso # (Auto) Seg Neutrophils % Seg Neuts % (Manual) Lymphocytes % (Manual) Seg Neutrophils # Seg Neutrophils # Man Lymphocytes # (Manual) D-Dimer ABG pH POC ABG pCO2 POC ABG pO2 ABG pO2 ABG HCO3 ABG O2 Saturation ABG Base Excess ABG Oxyhemoglobin ABG Sodium ABG Chloride ABG Glucose Oxyhemoglobin Carboxyhemoglobin Sodium Potassium Chloride Carbon Dioxide BUN Creatinine Glucose POC Glucose 192 H 51 L 137 H Hemoglobin A1c Magnesium Ferritin AST ALT Alkaline Phosphatase Lactate Dehydrogenase C-Reactive Protein Total Protein Albumin Arterial Blood Glucose Coronavirus (PCR) 07/09/21 07/09/21 07/09/21 04:45 04:45 04:45 WBC MCH MCHC RDW 18.3 H Lymph % (Auto) [place] % (Auto) Eos % (Auto) Lymph # (Auto) [place] # (Auto) Eos # (Auto) Baso # (Auto) Seg Neutrophils % Seg Neuts % (Manual) 82.0 H Lymphocytes % (Manual) 13.0 L Seg Neutrophils # Seg Neutrophils # Man 7.8 H Lymphocytes # (Manual) D-Dimer 638.35 H ABG pH POC ABG pCO2 POC ABG pO2 ABG pO2 ABG HCO3 ABG O2 Saturation ABG Base Excess ABG Oxyhemoglobin ABG Sodium ABG Chloride ABG Glucose Oxyhemoglobin Carboxyhemoglobin Sodium Potassium Chloride 96.9 L Carbon Dioxide 35 H BUN Creatinine 0.2 L Glucose 135 H POC Glucose Hemoglobin A1c Magnesium Ferritin AST ALT Alkaline Phosphatase Lactate Dehydrogenase C-Reactive Protein 4.30 H Total Protein Albumin Arterial Blood Glucose Coronavirus (PCR) 07/09/21 07/09/21 07/09/21 05:19 07:36 11:16 WBC MCH MCHC RDW Lymph % (Auto) [place] % (Auto) Eos % (Auto) Lymph # (Auto) [place] # (Auto) Eos # (Auto) Baso # (Auto) Seg Neutrophils % Seg Neuts % (Manual) Lymphocytes % (Manual) Seg Neutrophils # Seg Neutrophils # Man Lymphocytes # (Manual) D-Dimer ABG pH POC ABG pCO2 POC ABG pO2 ABG pO2 ABG HCO3 ABG O2 Saturation ABG Base Excess ABG Oxyhemoglobin ABG Sodium ABG Chloride ABG Glucose Oxyhemoglobin Carboxyhemoglobin Sodium Potassium Chloride Carbon Dioxide BUN Creatinine Glucose POC Glucose 135 H 148 H 212 H Hemoglobin A1c Magnesium Ferritin AST ALT Alkaline Phosphatase Lactate Dehydrogenase C-Reactive Protein Total Protein Albumin Arterial Blood Glucose Coronavirus (PCR) 07/09/21 07/09/21 07/10/21 15:21 21:12 05:40 WBC MCH MCHC RDW Lymph % (Auto) [place] % (Auto) Eos % (Auto) Lymph # (Auto) [place] # (Auto) Eos # (Auto) Baso # (Auto) Seg Neutrophils % Seg Neuts % (Manual) Lymphocytes % (Manual) Seg Neutrophils # Seg Neutrophils # Man Lymphocytes # (Manual) D-Dimer ABG pH POC ABG pCO2 POC ABG pO2 ABG pO2 ABG HCO3 ABG O2 Saturation ABG Base Excess ABG Oxyhemoglobin ABG Sodium ABG Chloride ABG Glucose Oxyhemoglobin Carboxyhemoglobin Sodium Potassium 3.3 L Chloride 95.1 L Carbon Dioxide 39 H BUN Creatinine 0.2 L Glucose 122 H POC Glucose 128 H 196 H Hemoglobin A1c Magnesium Ferritin AST ALT Alkaline Phosphatase Lactate Dehydrogenase C-Reactive Protein Total Protein Albumin Arterial Blood Glucose Coronavirus (PCR) 07/10/21 07/10/21 07/10/21 07:38 11:15 16:29 WBC MCH MCHC RDW Lymph % (Auto) [place] % (Auto) Eos % (Auto) Lymph # (Auto) [place] # (Auto) Eos # (Auto) Baso # (Auto) Seg Neutrophils % Seg Neuts % (Manual) Lymphocytes % (Manual) Seg Neutrophils # Seg Neutrophils # Man Lymphocytes # (Manual) D-Dimer ABG pH POC ABG pCO2 POC ABG pO2 ABG pO2 ABG HCO3 ABG O2 Saturation ABG Base Excess ABG Oxyhemoglobin ABG Sodium ABG Chloride ABG Glucose Oxyhemoglobin Carboxyhemoglobin Sodium Potassium Chloride Carbon Dioxide BUN Creatinine Glucose POC Glucose 128 H 175 H 174 H Hemoglobin A1c Magnesium Ferritin AST ALT Alkaline Phosphatase Lactate Dehydrogenase C-Reactive Protein Total Protein Albumin Arterial Blood Glucose Coronavirus (PCR) 07/10/21 07/11/21 07/11/21 20:49 05:50 12:08 WBC MCH MCHC RDW Lymph % (Auto) [place] % (Auto) Eos % (Auto) Lymph # (Auto) [place] # (Auto) Eos # (Auto) Baso # (Auto) Seg Neutrophils % Seg Neuts % (Manual) Lymphocytes % (Manual) Seg Neutrophils # Seg Neutrophils # Man Lymphocytes # (Manual) D-Dimer ABG pH POC ABG pCO2 POC ABG pO2 ABG pO2 ABG HCO3 ABG O2 Saturation ABG Base Excess ABG Oxyhemoglobin ABG Sodium ABG Chloride ABG Glucose Oxyhemoglobin Carboxyhemoglobin Sodium Potassium Chloride 97.3 L Carbon Dioxide 34 H BUN Creatinine 0.2 L Glucose 109 H POC Glucose 142 H 220 H Hemoglobin A1c Magnesium Ferritin AST ALT Alkaline Phosphatase Lactate Dehydrogenase C-Reactive Protein Total Protein Albumin Arterial Blood Glucose Coronavirus (PCR) 07/11/21 07/11/21 07/12/21 17:09 21:55 07:36 WBC MCH MCHC RDW Lymph % (Auto) [place] % (Auto) Eos % (Auto) Lymph # (Auto) [place] # (Auto) Eos # (Auto) Baso # (Auto) Seg Neutrophils % Seg Neuts % (Manual) Lymphocytes % (Manual) Seg Neutrophils # Seg Neutrophils # Man Lymphocytes # (Manual) D-Dimer ABG pH POC ABG pCO2 POC ABG pO2 ABG pO2 ABG HCO3 ABG O2 Saturation ABG Base Excess ABG Oxyhemoglobin ABG Sodium ABG Chloride ABG Glucose Oxyhemoglobin Carboxyhemoglobin Sodium Potassium Chloride Carbon Dioxide BUN Creatinine Glucose POC Glucose 219 H 124 H 114 H Hemoglobin A1c Magnesium Ferritin AST ALT Alkaline Phosphatase Lactate Dehydrogenase C-Reactive Protein Total Protein Albumin Arterial Blood Glucose Coronavirus (PCR) 07/12/21 07/12/21 07/12/21 11:08 15:43 22:20 WBC MCH MCHC RDW Lymph % (Auto) [place] % (Auto) Eos % (Auto) Lymph # (Auto) [place] # (Auto) Eos # (Auto) Baso # (Auto) Seg Neutrophils % Seg Neuts % (Manual) Lymphocytes % (Manual) Seg Neutrophils # Seg Neutrophils # Man Lymphocytes # (Manual) D-Dimer ABG pH POC ABG pCO2 POC ABG pO2 ABG pO2 ABG HCO3 ABG O2 Saturation ABG Base Excess ABG Oxyhemoglobin ABG Sodium ABG Chloride ABG Glucose Oxyhemoglobin Carboxyhemoglobin Sodium Potassium Chloride Carbon Dioxide BUN Creatinine Glucose POC Glucose 195 H 276 H 189 H Hemoglobin A1c Magnesium Ferritin AST ALT Alkaline Phosphatase Lactate Dehydrogenase C-Reactive Protein Total Protein Albumin Arterial Blood Glucose Coronavirus (PCR) 07/13/21 07/13/21 07/13/21 08:01 08:08 10:17 WBC MCH MCHC RDW Lymph % (Auto) [place] % (Auto) Eos % (Auto) Lymph # (Auto) [place] # (Auto) Eos # (Auto) Baso # (Auto) Seg Neutrophils % Seg Neuts % (Manual) Lymphocytes % (Manual) Seg Neutrophils # Seg Neutrophils # Man Lymphocytes # (Manual) D-Dimer ABG pH POC ABG pCO2 POC ABG pO2 ABG pO2 ABG HCO3 ABG O2 Saturation ABG Base Excess ABG Oxyhemoglobin ABG Sodium ABG Chloride ABG Glucose Oxyhemoglobin Carboxyhemoglobin Sodium Potassium Chloride 94.4 L Carbon Dioxide 34 H BUN Creatinine 0.3 L Glucose 149 H POC Glucose 132 H 265 H Hemoglobin A1c Magnesium Ferritin AST ALT Alkaline Phosphatase Lactate Dehydrogenase C-Reactive Protein Total Protein Albumin Arterial Blood Glucose Coronavirus (PCR) 07/13/21 07/13/21 07/14/21 17:58 21:41 07:34 WBC MCH MCHC RDW Lymph % (Auto) [place] % (Auto) Eos % (Auto) Lymph # (Auto) [place] # (Auto) Eos # (Auto) Baso # (Auto) Seg Neutrophils % Seg Neuts % (Manual) Lymphocytes % (Manual) Seg Neutrophils # Seg Neutrophils # Man Lymphocytes # (Manual) D-Dimer ABG pH POC ABG pCO2 POC ABG pO2 ABG pO2 ABG HCO3 ABG O2 Saturation ABG Base Excess ABG Oxyhemoglobin ABG Sodium ABG Chloride ABG Glucose Oxyhemoglobin Carboxyhemoglobin Sodium Potassium Chloride Carbon Dioxide BUN Creatinine Glucose POC Glucose 217 H 223 H 116 H Hemoglobin A1c Magnesium Ferritin AST ALT Alkaline Phosphatase Lactate Dehydrogenase C-Reactive Protein Total Protein Albumin Arterial Blood Glucose Coronavirus (PCR) 07/14/21 07/14/21 07/14/21 10:50 17:33 20:51 WBC MCH MCHC RDW Lymph % (Auto) [place] % (Auto) Eos % (Auto) Lymph # (Auto) [place] # (Auto) Eos # (Auto) Baso # (Auto) Seg Neutrophils % Seg Neuts % (Manual) Lymphocytes % (Manual) Seg Neutrophils # Seg Neutrophils # Man Lymphocytes # (Manual) D-Dimer ABG pH POC ABG pCO2 POC ABG pO2 ABG pO2 ABG HCO3 ABG O2 Saturation ABG Base Excess ABG Oxyhemoglobin ABG Sodium ABG Chloride ABG Glucose Oxyhemoglobin Carboxyhemoglobin Sodium Potassium Chloride Carbon Dioxide BUN Creatinine Glucose POC Glucose 191 H 173 H 132 H Hemoglobin A1c Magnesium Ferritin AST ALT Alkaline Phosphatase Lactate Dehydrogenase C-Reactive Protein Total Protein Albumin Arterial Blood Glucose Coronavirus (PCR) 07/15/21 07/15/21 07/15/21 04:00 07:59 12:31 WBC MCH MCHC RDW Lymph % (Auto) [place] % (Auto) Eos % (Auto) Lymph # (Auto) [place] # (Auto) Eos # (Auto) Baso # (Auto) Seg Neutrophils % Seg Neuts % (Manual) Lymphocytes % (Manual) Seg Neutrophils # Seg Neutrophils # Man Lymphocytes # (Manual) D-Dimer ABG pH POC ABG pCO2 POC ABG pO2 ABG pO2 ABG HCO3 ABG O2 Saturation ABG Base Excess ABG Oxyhemoglobin ABG Sodium ABG Chloride ABG Glucose Oxyhemoglobin Carboxyhemoglobin Sodium Potassium Chloride 96.0 L Carbon Dioxide 32 H BUN Creatinine 0.3 L Glucose 208 H POC Glucose 117 H 195 H Hemoglobin A1c Magnesium Ferritin AST ALT Alkaline Phosphatase Lactate Dehydrogenase C-Reactive Protein Total Protein Albumin Arterial Blood Glucose Coronavirus (PCR) 07/15/21 07/15/21 07/16/21 18:00 20:57 04:40 WBC MCH MCHC RDW 17.1 H Lymph % (Auto) [place] % (Auto) Eos % (Auto) Lymph # (Auto) [place] # (Auto) Eos # (Auto) Baso # (Auto) Seg Neutrophils % Seg Neuts % (Manual) Lymphocytes % (Manual) Seg Neutrophils # Seg Neutrophils # Man Lymphocytes # (Manual) D-Dimer ABG pH POC ABG pCO2 POC ABG pO2 ABG pO2 ABG HCO3 ABG O2 Saturation ABG Base Excess ABG Oxyhemoglobin ABG Sodium ABG Chloride ABG Glucose Oxyhemoglobin Carboxyhemoglobin Sodium Potassium Chloride Carbon Dioxide BUN Creatinine Glucose POC Glucose 217 H 111 H Hemoglobin A1c Magnesium Ferritin AST ALT Alkaline Phosphatase Lactate Dehydrogenase C-Reactive Protein Total Protein Albumin Arterial Blood Glucose Coronavirus (PCR) 07/16/21 07/16/21 07/16/21 04:40 07:08 11:11 WBC MCH MCHC RDW Lymph % (Auto) [place] % (Auto) Eos % (Auto) Lymph # (Auto) [place] # (Auto) Eos # (Auto) Baso # (Auto) Seg Neutrophils % Seg Neuts % (Manual) Lymphocytes % (Manual) Seg Neutrophils # Seg Neutrophils # Man Lymphocytes # (Manual) D-Dimer ABG pH POC ABG pCO2 POC ABG pO2 ABG pO2 ABG HCO3 ABG O2 Saturation ABG Base Excess ABG Oxyhemoglobin ABG Sodium ABG Chloride ABG Glucose Oxyhemoglobin Carboxyhemoglobin Sodium Potassium 3.4 L Chloride 94.6 L Carbon Dioxide 36 H BUN Creatinine < 0.2 L Glucose 101 H POC Glucose 118 H 184 H Hemoglobin A1c Magnesium Ferritin AST ALT Alkaline Phosphatase Lactate Dehydrogenase C-Reactive Protein Total Protein Albumin Arterial Blood Glucose Coronavirus (PCR) 07/16/21 07/16/21 07/17/21 17:29 22:01 08:10 WBC MCH MCHC RDW Lymph % (Auto) [place] % (Auto) Eos % (Auto) Lymph # (Auto) [place] # (Auto) Eos # (Auto) Baso # (Auto) Seg Neutrophils % Seg Neuts % (Manual) Lymphocytes % (Manual) Seg Neutrophils # Seg Neutrophils # Man Lymphocytes # (Manual) D-Dimer ABG pH POC ABG pCO2 POC ABG pO2 ABG pO2 ABG HCO3 ABG O2 Saturation ABG Base Excess ABG Oxyhemoglobin ABG Sodium ABG Chloride ABG Glucose Oxyhemoglobin Carboxyhemoglobin Sodium Potassium Chloride Carbon Dioxide BUN Creatinine Glucose POC Glucose 200 H 147 H 118 H Hemoglobin A1c Magnesium Ferritin AST ALT Alkaline Phosphatase Lactate Dehydrogenase C-Reactive Protein Total Protein Albumin Arterial Blood Glucose Coronavirus (PCR) 07/17/21 07/17/21 07/17/21 11:38 16:24 21:13 WBC MCH MCHC RDW Lymph % (Auto) [place] % (Auto) Eos % (Auto) Lymph # (Auto) [place] # (Auto) Eos # (Auto) Baso # (Auto) Seg Neutrophils % Seg Neuts % (Manual) Lymphocytes % (Manual) Seg Neutrophils # Seg Neutrophils # Man Lymphocytes # (Manual) D-Dimer ABG pH POC ABG pCO2 POC ABG pO2 ABG pO2 ABG HCO3 ABG O2 Saturation ABG Base Excess ABG Oxyhemoglobin ABG Sodium ABG Chloride ABG Glucose Oxyhemoglobin Carboxyhemoglobin Sodium Potassium Chloride Carbon Dioxide BUN Creatinine Glucose POC Glucose 151 H 268 H 115 H Hemoglobin A1c Magnesium Ferritin AST ALT Alkaline Phosphatase Lactate Dehydrogenase C-Reactive Protein Total Protein Albumin Arterial Blood Glucose Coronavirus (PCR) 07/18/21 07/18/21 07/18/21 07:58 12:29 20:24 WBC MCH MCHC RDW Lymph % (Auto) [place] % (Auto) Eos % (Auto) Lymph # (Auto) [place] # (Auto) Eos # (Auto) Baso # (Auto) Seg Neutrophils % Seg Neuts % (Manual) Lymphocytes % (Manual) Seg Neutrophils # Seg Neutrophils # Man Lymphocytes # (Manual) D-Dimer ABG pH POC ABG pCO2 POC ABG pO2 ABG pO2 ABG HCO3 ABG O2 Saturation ABG Base Excess ABG Oxyhemoglobin ABG Sodium ABG Chloride ABG Glucose Oxyhemoglobin Carboxyhemoglobin Sodium Potassium Chloride Carbon Dioxide BUN Creatinine Glucose POC Glucose 135 H 139 H 130 H Hemoglobin A1c Magnesium Ferritin AST ALT Alkaline Phosphatase Lactate Dehydrogenase C-Reactive Protein Total Protein Albumin Arterial Blood Glucose Coronavirus (PCR) 07/19/21 07/19/21 07/19/21 06:55 06:55 07:54 WBC 14.5 H MCH MCHC RDW 17.3 H Lymph % (Auto) 9.6 L [place] % (Auto) Eos % (Auto) Lymph # (Auto) [place] # (Auto) Eos # (Auto) 0.6 H Baso # (Auto) Seg Neutrophils % 80.3 H Seg Neuts % (Manual) Lymphocytes % (Manual) Seg Neutrophils # 11.7 H Seg Neutrophils # Man Lymphocytes # (Manual) D-Dimer ABG pH POC ABG pCO2 67.9 H POC ABG pO2 131.0 H ABG pO2 ABG HCO3 ABG O2 Saturation ABG Base Excess ABG Oxyhemoglobin ABG Sodium ABG Chloride 97.0 L ABG Glucose 133 H Oxyhemoglobin Carboxyhemoglobin Sodium Potassium Chloride 95.3 L Carbon Dioxide 35 H BUN Creatinine < 0.2 L Glucose 138 H POC Glucose Hemoglobin A1c Magnesium Ferritin AST ALT Alkaline Phosphatase Lactate Dehydrogenase C-Reactive Protein Total Protein Albumin Arterial Blood Glucose 133 H Coronavirus (PCR) 07/19/21 07/19/21 07/19/21 08:10 11:43 17:04 WBC MCH MCHC RDW Lymph % (Auto) [place] % (Auto) Eos % (Auto) Lymph # (Auto) [place] # (Auto) Eos # (Auto) Baso # (Auto) Seg Neutrophils % Seg Neuts % (Manual) Lymphocytes % (Manual) Seg Neutrophils # Seg Neutrophils # Man Lymphocytes # (Manual) D-Dimer ABG pH POC ABG pCO2 POC ABG pO2 ABG pO2 ABG HCO3 ABG O2 Saturation ABG Base Excess ABG Oxyhemoglobin ABG Sodium ABG Chloride ABG Glucose Oxyhemoglobin Carboxyhemoglobin Sodium Potassium Chloride Carbon Dioxide BUN Creatinine Glucose POC Glucose 129 H 126 H 108 H Hemoglobin A1c Magnesium Ferritin AST ALT Alkaline Phosphatase Lactate Dehydrogenase C-Reactive Protein Total Protein Albumin Arterial Blood Glucose Coronavirus (PCR) 07/19/21 07/20/21 07/20/21 21:10 04:00 04:00 WBC MCH MCHC RDW 17.0 H Lymph % (Auto) [place] % (Auto) 8.9 H Eos % (Auto) 6.3 H Lymph # (Auto) [place] # (Auto) 0.9 H Eos # (Auto) 0.6 H Baso # (Auto) Seg Neutrophils % 70.2 H Seg Neuts % (Manual) Lymphocytes % (Manual) Seg Neutrophils # Seg Neutrophils # Man Lymphocytes # (Manual) D-Dimer ABG pH POC ABG pCO2 POC ABG pO2 ABG pO2 ABG HCO3 ABG O2 Saturation ABG Base Excess ABG Oxyhemoglobin ABG Sodium ABG Chloride ABG Glucose Oxyhemoglobin Carboxyhemoglobin Sodium Potassium Chloride 96.7 L Carbon Dioxide 36 H BUN Creatinine 0.2 L Glucose 102 H POC Glucose 109 H Hemoglobin A1c Magnesium Ferritin AST ALT Alkaline Phosphatase Lactate Dehydrogenase C-Reactive Protein Total Protein Albumin 3.2 L Arterial Blood Glucose Coronavirus (PCR) 07/20/21 07/20/21 07/20/21 11:15 15:34 17:01 WBC MCH MCHC RDW Lymph % (Auto) [place] % (Auto) Eos % (Auto) Lymph # (Auto) [place] # (Auto) Eos # (Auto) Baso # (Auto) Seg Neutrophils % Seg Neuts % (Manual) Lymphocytes % (Manual) Seg Neutrophils # Seg Neutrophils # Man Lymphocytes # (Manual) D-Dimer ABG pH POC ABG pCO2 POC ABG pO2 ABG pO2 ABG HCO3 ABG O2 Saturation ABG Base Excess ABG Oxyhemoglobin ABG Sodium ABG Chloride ABG Glucose Oxyhemoglobin Carboxyhemoglobin Sodium Potassium Chloride Carbon Dioxide BUN Creatinine Glucose POC Glucose 109 H 152 H 125 H Hemoglobin A1c Magnesium Ferritin AST ALT Alkaline Phosphatase Lactate Dehydrogenase C-Reactive Protein Total Protein Albumin Arterial Blood Glucose Coronavirus (PCR) 07/20/21 07/21/21 07/21/21 21:00 04:48 04:48 WBC 12.8 H MCH MCHC RDW 16.8 H Lymph % (Auto) 9.3 L [place] % (Auto) Eos % (Auto) Lymph # (Auto) [place] # (Auto) 0.9 H Eos # (Auto) Baso # (Auto) Seg Neutrophils % 81.1 H Seg Neuts % (Manual) Lymphocytes % (Manual) Seg Neutrophils # 10.4 H Seg Neutrophils # Man Lymphocytes # (Manual) D-Dimer ABG pH POC ABG pCO2 POC ABG pO2 ABG pO2 ABG HCO3 ABG O2 Saturation ABG Base Excess ABG Oxyhemoglobin ABG Sodium ABG Chloride ABG Glucose Oxyhemoglobin Carboxyhemoglobin Sodium Potassium Chloride 95.4 L Carbon Dioxide 33 H BUN 6 L Creatinine < 0.2 L Glucose 155 H POC Glucose 211 H Hemoglobin A1c Magnesium 1.60 L Ferritin AST ALT Alkaline Phosphatase Lactate Dehydrogenase C-Reactive Protein Total Protein Albumin Arterial Blood Glucose Coronavirus (PCR) 07/21/21 07/21/21 07/21/21 07:52 11:05 17:01 WBC MCH MCHC RDW Lymph % (Auto) [place] % (Auto) Eos % (Auto) Lymph # (Auto) [place] # (Auto) Eos # (Auto) Baso # (Auto) Seg Neutrophils % Seg Neuts % (Manual) Lymphocytes % (Manual) Seg Neutrophils # Seg Neutrophils # Man Lymphocytes # (Manual) D-Dimer ABG pH POC ABG pCO2 POC ABG pO2 ABG pO2 ABG HCO3 ABG O2 Saturation ABG Base Excess ABG Oxyhemoglobin ABG Sodium ABG Chloride ABG Glucose Oxyhemoglobin Carboxyhemoglobin Sodium Potassium Chloride Carbon Dioxide BUN Creatinine Glucose POC Glucose 116 H 207 H 133 H Hemoglobin A1c Magnesium Ferritin AST ALT Alkaline Phosphatase Lactate Dehydrogenase C-Reactive Protein Total Protein Albumin Arterial Blood Glucose Coronavirus (PCR) 07/21/21 21:17 WBC MCH MCHC RDW Lymph % (Auto) [place] % (Auto) Eos % (Auto) Lymph # (Auto) [place] # (Auto) Eos # (Auto) Baso # (Auto) Seg Neutrophils % Seg Neuts % (Manual) Lymphocytes % (Manual) Seg Neutrophils # Seg Neutrophils # Man Lymphocytes # (Manual) D-Dimer ABG pH POC ABG pCO2 POC ABG pO2 ABG pO2 ABG HCO3 ABG O2 Saturation ABG Base Excess ABG Oxyhemoglobin ABG Sodium ABG Chloride ABG Glucose Oxyhemoglobin Carboxyhemoglobin Sodium Potassium Chloride Carbon Dioxide BUN Creatinine Glucose POC Glucose 152 H Hemoglobin A1c Magnesium Ferritin AST ALT Alkaline Phosphatase Lactate Dehydrogenase C-Reactive Protein Total Protein Albumin Arterial Blood Glucose Coronavirus (PCR)
[2021-07-22 08:34] LABS: Basophils % (Auto) 0.5 % (0.0-1.8); Eosinophils # (Auto) 0.4 K/mm3 (0.0-0.4); Eosinophils % (Auto) 4.3 % (0.0-4.3); Hematocrit 35.8 % (30.3-42.9); Hemoglobin 11.3 gm/dl (10.1-14.3); Lymphocytes # (Auto) 1.2 K/mm3 (1.2-5.4); Lymphocytes % (Auto) 14.3 % (13.4-35.0); Mean Corpuscular HGB Conc 32 % (30-34); Mean Corpuscular Volume 96 fl (79-97); Monocytes # (Auto) 0.7 K/mm3 (0.0-0.8); Monocytes % (Auto) 8.6 % (0.0-7.3); Platelet Count 339 K/mm3 (140-440); Red Blood Count 3.73 M/mm3 (3.65-5.03); Red Cell Distribution Width 16.5 % (13.2-15.2)
[2021-07-22 08:55] LABS: Blood Urea Nitrogen 5 mg/dL (7-17); Calcium 9.3 mg/dL (8.4-10.2); Hemolysis Index 1
[2021-07-22 08:57] LABS: BUN/Creatinine Ratio 25
--- NOTE | 2021-07-22 10:27 | XRay Report ---
CHEST 1 VIEW 07/22/2021 9:20 AM INDICATION / CLINICAL INFORMATION: acute resp failure on bipap. COMPARISON: 07/06/2021 FINDINGS: SUPPORT DEVICES: Right PICC line has tip in right atrium. HEART / MEDIASTINUM: No significant abnormality. LUNGS / PLEURA: Extensive bilateral parenchymal disease again noted. No pneumothorax. ADDITIONAL FINDINGS: No significant additional findings. IMPRESSION: 1. No significant interval change Signer Name: Choco Wolff MD Signed: 07/22/2021 10:23 AM Workstation Name: [id number]
[2021-07-22] MEDS: INSULIN LISPRO 100 UNIT/ML SUB-Q SCH ×4 (10:58→21:34)
[2021-07-22] MEDS: ALPRAZolam 1 MG TAB PO SCH ×2 (10:59→21:05)
[2021-07-22] MEDS: ZINC SULFATE 220 MG CAP PO SCH ×2 (10:59→21:05)
[2021-07-22] MEDS: ASCORBIC ACID 500 MG TAB PO SCH (10:59)
[2021-07-22] MEDS: CHOLECALCIFEROL (VIT D3) 1000 UNIT (25 mcg) TAB PO SCH (10:59)
[2021-07-22] MEDS: INSULIN GLARGINE 100 UNITS/ML SUB-Q SCH (10:59)
[2021-07-22] MEDS: IBUPROFEN 600 MG TAB PO PRN (11:38)
[2021-07-22 12:46] LABS: ABG Base Excess 15.2 mmol/L (-2.0-3.0); ABG Methemoglobin 0.5 % (0.0-1.5); ABG Oxygen Saturation 94.2 % (95.0-99.0); ABG PCO2 85.7 mm Hg; ABG PH 7.338 pH Units (7.350-7.450); ABG PO2 66.1 mm Hg (80.0-90.0)
--- NOTE | 2021-07-22 14:13 | Progress Note ---
Assessment and Plan Assessment and plan: #Acute hypoxic respiratory failure -[id number] transition between BiPAP and high flow nasal cannula. Possible BiPAP at night and high flow during the day. -Discontinue prednisone per pulmonology. -Pulmonology following, assistance appreciated -Referral sent for LTACH (patient stay 90 days) and rejected x3. -encouraged prone positioning -will assess need for lasix PRN #Heart failure with preserved ejection fraction -TTE: LVEF 55-60% with diastolic dysfunction -will continue to monitor for signs of fluid overload #COVID-19 infection #COVID-19 pneumonia -Continue Covid vitamins #Insulin-dependent type 2 diabetes mellitus -Continue Lantus 15 units daily and sliding scale insulin #Dysuria-resolved #Possible UTI-resolved -Urinalysis ordered 07/09, not collected -s/p Levaquin x3 days #Anxiety -Stable -Continue Xanax #DVT prophylaxis -Lovenox 40 daily #Deconditioning -Will benefit from SNF after prolonged hospital stay, Resolved issues #Sepsis secondary to COVID-19 #Iatrogenic diarrhea #Hypomagnesemia #Hyponatremia #Protein calorie malnutrition The high probability of a clinically significant, sudden or life threatening deterioration of the [respiratory] system(s) required my full and direct attention, intervention and personal management. The aggregate critical care time was [60] minutes. This time is in addition to time spent performing reported procedures but includes the following: [x] Data Review and interpretation [x] Patient assessment and monitoring of vital signs [x] Documentation [x] Medication orders and management Disposition Plan: Continue medical management Total Time Spent with Patient (Minutes): 60 minutes History Interval history: No acute events overnight. Hospitalist Physical - Constitutional Vitals: Temp Pulse Resp BP Pulse Ox 97.9 F 107 H 41 H 123/75 99 07/22/21 07:29 07/22/21 11:00 07/22/21 11:00 07/22/21 11:00 07/22/21 11:00 General appearance: Present: no acute distress, well-nourished, obese, other (Looks tired) - EENT Eyes: Present: PERRL, EOM intact ENT: hearing intact, clear oral mucosa, dentition normal - Neck Neck: Present: supple, normal ROM - Respiratory Respiratory effort: labored Respiratory: bilateral: diminished (On high flow 40 L 100% FiO2 + nonrebreather 100%) - Cardiovascular Rhythm: regular Heart Sounds: Present: S1 & S2 - Extremities Extremities: no ischemia, pulses intact, pulses symmetrical, No edema, normal temperature, normal color Peripheral Pulses: within normal limits - Abdominal General gastrointestinal: soft, non-tender, non-distended, normal bowel sounds - Integumentary Integumentary: Present: clear, warm, dry - Psychiatric Psychiatric: appropriate mood/affect, intact judgment & insight, memory intact, cooperative - Neurologic Neurologic: CNII-XII intact, moves all extremities - Allied Health Allied health notes reviewed: nursing Results - Labs CBC & Chem 7: 07/22/21 07:55 07/22/21 07:55 Labs: Laboratory Last Values WBC 8.4 K/mm3 (4.5-11.0) 07/22/21 07:55 RBC 3.73 M/mm3 (3.65-5.03) 07/22/21 07:55 Hgb 11.3 gm/dl (10.1-14.3) 07/22/21 07:55 Hct 35.8 % (30.3-42.9) 07/22/21 07:55 MCV 96 fl (79-97) 07/22/21 07:55 MCH 30 pg (28-32) 07/22/21 07:55 MCHC 32 % (30-34) 07/22/21 07:55 RDW 16.5 % (13.2-15.2) H 07/22/21 07:55 Plt Count 339 K/mm3 (140-440) 07/22/21 07:55 Lymph % (Auto) 14.3 % (13.4-35.0) 07/22/21 07:55 [place] % (Auto) 8.6 % (0.0-7.3) H 07/22/21 07:55 Eos % (Auto) 4.3 % (0.0-4.3) 07/22/21 07:55 Baso % (Auto) 0.5 % (0.0-1.8) 07/22/21 07:55 Lymph # (Auto) 1.2 K/mm3 (1.2-5.4) 07/22/21 07:55 [place] # (Auto) 0.7 K/mm3 (0.0-0.8) 07/22/21 07:55 Eos # (Auto) 0.4 K/mm3 (0.0-0.4) 07/22/21 07:55 Baso # (Auto) 0.0 K/mm3 (0.0-0.1) 07/22/21 07:55 Add Manual Diff Complete 07/09/21 04:45 Total Counted 100 07/09/21 04:45 Seg Neutrophils % 72.3 % (40.0-70.0) H 07/22/21 07:55 Seg Neuts % (Manual) 82.0 % (40.0-70.0) H 07/09/21 04:45 Band Neutrophils % 1.0 % 05/12/21 04:05 Lymphocytes % (Manual) 13.0 % (13.4-35.0) L 07/09/21 04:45 Monocytes % (Manual) 3.0 % (0.0-7.3) 07/09/21 04:45 Eosinophils % (Manual) 2.0 % (0.0-4.3) 07/09/21 04:45 Nucleated RBC % Not Reportable 07/09/21 04:45 Seg Neutrophils # 6.1 K/mm3 (1.8-7.7) 07/22/21 07:55 Seg Neutrophils # Man 7.8 K/mm3 (1.8-7.7) H 07/09/21 04:45 Band Neutrophils # 0.0 K/mm3 07/09/21 04:45 Lymphocytes # (Manual) 1.2 K/mm3 (1.2-5.4) 07/09/21 04:45 Abs React Lymphs (Man) 0.0 K/mm3 07/09/21 04:45 Monocytes # (Manual) 0.3 K/mm3 (0.0-0.8) 07/09/21 04:45 Eosinophils # (Manual) 0.2 K/mm3 (0.0-0.4) 07/09/21 04:45 Basophils # (Manual) 0.0 K/mm3 (0.0-0.1) 07/09/21 04:45 Metamyelocytes # 0.0 K/mm3 07/09/21 04:45 Myelocytes # 0.0 K/mm3 07/09/21 04:45 Promyelocytes # 0.0 K/mm3 07/09/21 04:45 Blast Cells # 0.0 K/mm3 07/09/21 04:45 WBC Morphology Not Reportable 07/09/21 04:45 Hypersegmented Neuts Not Reportable 07/09/21 04:45 Hyposegmented Neuts Not Reportable 07/09/21 04:45 Hypogranular Neuts Not Reportable 07/09/21 04:45 Smudge Cells Not Reportable 07/09/21 04:45 Toxic Granulation Not Reportable 07/09/21 04:45 Toxic Vacuolation Not Reportable 07/09/21 04:45 Dohle Bodies Not Reportable 07/09/21 04:45 Pelger-Huet Anomaly Not Reportable 07/09/21 04:45 Janelle Rods Not Reportable 07/09/21 04:45 Platelet Estimate Consistent w auto 07/09/21 04:45 Clumped Platelets Not Reportable 07/09/21 04:45 Plt Clumps, EDTA Not Reportable 07/09/21 04:45 Large Platelets Not Reportable 07/09/21 04:45 Giant Platelets Rare 07/09/21 04:45 Platelet Satelliting Not Reportable 07/09/21 04:45 Plt Morphology Comment Not Reportable 07/09/21 04:45 RBC Morphology Not Reportable 07/09/21 04:45 Dimorphic RBCs Not Reportable 07/09/21 04:45 Polychromasia Not Reportable 07/09/21 04:45 Hypochromasia Few 07/09/21 04:45 Poikilocytosis Not Reportable 07/09/21 04:45 Anisocytosis Not Reportable 07/09/21 04:45 Microcytosis Not Reportable 07/09/21 04:45 Macrocytosis Not Reportable 07/09/21 04:45 Spherocytes Not Reportable 07/09/21 04:45 Pappenheimer Bodies Not Reportable 07/09/21 04:45 Sickle Cells Not Reportable 07/09/21 04:45 Target Cells Not Reportable 07/09/21 04:45 Tear Drop Cells Not Reportable 07/09/21 04:45 Ovalocytes Not Reportable 07/09/21 04:45 Stomatocytes 1+ 07/09/21 04:45 Helmet Cells Not Reportable 07/09/21 04:45 Ahuja-[place]ington Bodies Not Reportable 07/09/21 04:45 Creola Rings Not Reportable 07/09/21 04:45 Crow Cells Not Reportable 07/09/21 04:45 Bite Cells Not Reportable 07/09/21 04:45 Crenated Cell Not Reportable 07/09/21 04:45 Elliptocytes Not Reportable 07/09/21 04:45 Acanthocytes (Spur) Not Reportable 07/09/21 04:45 Rouleaux Not Reportable 07/09/21 04:45 Hemoglobin C Crystals Not Reportable 07/09/21 04:45 Schistocytes Not Reportable 07/09/21 04:45 Malaria parasites Not Reportable 07/09/21 04:45 Justin Bodies Not Reportable 07/09/21 04:45 Hem Pathologist Commnt No 07/09/21 04:45 D-Dimer 638.35 ng/mlDDU (0-234) H 07/09/21 04:45 ABG pH 7.338 pH Units (7.350-7.450) L 07/22/21 12:05 POC ABG pCO2 67.9 mmHg (32.0-48.0) H 07/19/21 07:54 ABG pCO2 85.7 mm Hg 07/22/21 12:05 POC ABG pO2 131.0 mmHg (83-108) H 07/19/21 07:54 ABG pO2 66.1 mm Hg (80.0-90.0) L 07/22/21 12:05 POC ABG HCO3 38.3 07/19/21 07:54 ABG HCO3 45.0 mmol/L (20.0-26.0) H 07/22/21 12:05 ABG O2 Saturation 94.2 % (95.0-99.0) L 07/22/21 12:05 ABG O2 Content 16.8 (0.0-44) 07/22/21 12:05 POC ABG Base Excess 10.3 07/19/21 07:54 ABG Base Excess 15.2 mmol/L (-2.0-3.0) H 07/22/21 12:05 ABG Hemoglobin 13.0 gm/dl (12.0-16.0) 07/22/21 12:05 ABG Oxyhemoglobin 97.9 (94-98) 07/19/21 07:54 ABG Carboxyhemoglobin 1.9 % (0.0-5.0) 07/22/21 12:05 ABG Methemoglobin 0.5 % (0.0-1.5) 07/22/21 12:05 ABG Sodium 138.5 mmol/L (136.0-145.0) 07/19/21 07:54 ABG Potassium 4.3 mmol/L (3.40-4.50) 07/19/21 07:54 ABG Chloride 97.0 mmol/L (98-107) L 07/19/21 07:54 ABG Glucose 133 mg/dL (65-95) H 07/19/21 07:54 Oxyhemoglobin 91.9 % (95.0-99.0) L 07/22/21 12:05 Carboxyhemoglobin 1.0 (0.5-1.5) 07/19/21 07:54 FiO2 100 % 07/22/21 12:05 FiO2 % 100.0 07/19/21 07:54 Sodium 141 mmol/L (137-145) 07/22/21 07:55 Potassium 4.3 mmol/L (3.6-5.0) 07/22/21 07:55 Chloride 94.6 mmol/L (98-107) L 07/22/21 07:55 Carbon Dioxide 42 mmol/L (22-30) H* D 07/22/21 07:55 Anion Gap 9 mmol/L 07/22/21 07:55 BUN 5 mg/dL (7-17) L 07/22/21 07:55 Creatinine < 0.2 mg/dL (0.6-1.2) L 07/22/21 07:55 Estimated GFR > 60 ml/min 07/22/21 07:55 BUN/Creatinine Ratio 25 % 07/22/21 07:55 Glucose 95 mg/dL (65-100) 07/22/21 07:55 POC Glucose 146 mg/dL (70-105) H 07/22/21 11:25 Hemoglobin A1c 8.5 % (4-6) H 04/18/21 07:36 Calcium 9.3 mg/dL (8.4-10.2) 07/22/21 07:55 Phosphorus 3.10 mg/dL (2.5-4.5) 07/22/21 07:55 Magnesium 1.90 mg/dL (1.7-2.3) 07/22/21 07:55 Ferritin 155.9 ng/mL (10.0-200.0) 07/09/21 04:45 Total Bilirubin 0.20 mg/dL (0.1-1.2) 07/20/21 04:00 AST 18 units/L (5-40) 07/20/21 04:00 ALT 40 units/L (7-56) 07/20/21 04:00 Alkaline Phosphatase 70 units/L (35-129) 07/20/21 04:00 Lactate Dehydrogenase 475 units/L (91-180) H 06/05/21 05:26 C-Reactive Protein 4.30 mg/dL (0.00-1.30) H 07/09/21 04:45 NT-Pro-B Natriuret Pep 59.45 pg/mL (0-450) 07/07/21 13:40 Total Protein 7.1 g/dL (6.3-8.2) 07/20/21 04:00 Albumin 3.2 g/dL (3.9-5) L 07/20/21 04:00 Albumin/Globulin Ratio 0.8 % 07/20/21 04:00 Triglycerides < 9 mg/dL (2-149) 05/03/21 04:30 Procalcitonin < 0.05 ng/mL (<0.15) 05/23/21 09:50 Arterial Blood Glucose 133 mg/dL (65-95) H 07/19/21 07:54 Arterial Blood Ionized Calcium 4.9 mg/dL (4.6-5.3) 05/03/21 04:49 Coronavirus (PCR) Positive (Negative) A 06/05/21 08:30 Amos/IV: Voiding Method Bedpan Active Medications - Current Medications Current Medications: Generic Name Dose Route Start Last Admin Trade Name Freq PRN Reason Stop Dose Admin Acetaminophen 650 mg 07/02/21 17:48 07/21/21 21:54 Acetaminophen 325 Mg Tab PO 650 mg Q4H PRN Administration Pain, Mild (1-3) Albuterol 2.5 mg 04/16/21 13:39 04/21/21 20:39 Albuterol 2.5 Mg/3 Ml Nebu IH 2.5 mg Q4HRT PRN Administration Shortness Of Breath Alprazolam 2 mg 07/04/21 12:00 07/22/21 10:59 Alprazolam 1 Mg Tab PO 2 mg BID TUTU Administration Cholecalciferol 1,000 unit 04/17/21 10:00 07/22/21 10:59 Cholecalciferol (Vit D3) 1000 Unit (25 Mcg) Tab PO 1,000 unit QDAY TUTU Administration Enoxaparin Sodium 40 mg 05/19/21 22:00 07/21/21 21:37 Enoxaparin 40 Mg/0.4 Ml Inj SUB-Q 40 mg QDAY@2200 TUTU Administration Protocol Ibuprofen 600 mg 07/11/21 11:00 07/22/21 11:38 Ibuprofen 600 Mg Tab PO 600 mg Q6H PRN Administration Ear Pain Insulin Glargine 15 units 06/25/21 10:00 07/22/21 10:59 Insulin Glargine 100 Units/Ml SUB-Q 15 units DAILY TUTU Administration Insulin Human Lispro 0 unit 05/18/21 12:00 07/22/21 11:37 Insulin Lispro 100 Unit/Ml SUB-Q Not Given ACHS [facility] Protocol Ondansetron HCl 4 mg 04/16/21 14:00 05/30/21 10:07 Ondansetron 4 Mg/2 Ml Inj IV 4 mg Q8H PRN Administration Nausea And Vomiting Polyethylene Glycol 17 gm 07/16/21 20:00 Polyethylene Glycol 3350 17 Gm Powder PO QDAY PRN Constipation Sodium Chloride 10 ml 04/16/21 13:39 07/15/21 21:07 Sodium Chloride 0.9% 10 Ml Flush Syringe IV 10 ml PRN PRN Administration LINE FLUSH Zinc Sulfate 220 mg 04/16/21 22:00 07/22/21 10:59 Zinc Sulfate 220 Mg Cap PO 220 mg BID TUTU Administration Zolpidem Tartrate 10 mg 05/26/21 08:56 07/20/21 21:08 Zolpidem 5 Mg Tab PO 10 mg QHS PRN Administration Insomnia Nutrition/Malnutrition Assess - Dietary Evaluation Nutrition/Malnutrition Findings: Nutrition Notes Start: 04/23/21 07:41 Freq: Status: Active Protocol: Document 07/03/21 16:54 GB (Rec: 07/03/21 17:11 GB [id number]) Nutrition Notes Initial or Follow up Reassessment Current Diagnosis Respiratory Failure Other Pertinent Diagnosis oral thrush, COVID-19 pneu Current Diet consistent carbohydrate Labs/Tests 07/03: creatinine 0.3, K 3.2 Pertinent Medications Vit C, Vit D3, D5 (PRN), Prednisone, NaCl, Zn Sulfate Height 4 ft 11.84 in Weight 60.3 kg [place] Body Weight (kg) 45.09 BMI 26.1 Weight change and time frame 04/16/21: 74.843kg 05/17/21: 68.1kg 06/16/21: 60.3kg change of -14.54kg for -19.43% in 60 days. Per MD note: pt has been diuresed thorughout stay. Weight Status Overweight Subjective/Other Information MD notes 07/03: pt showing improvement, prednisone weaning down, possible weaning of O2. Last BM: 07/02 PO intake recorded at 50-100% Percent of energy/protein needs met: PO intake of meals meet 75% or greater of EEN Burn Absent Trauma Absent GI Symptoms None Food Allergy No Skin Integrity/Comment skin tear rt/lt buttocks Current % PO Good (75-100%) Minimum of two criteria No #3 Nutrition Diagnosis No nutrition diagnosis at this time Etiology respiratory failure As Evidenced by Signs and Symptoms recovering, good po, weight loss r/t diurese therapy #2 Nutrition Diagnosis Malnutrition Comments: Wt loss due to diurese for most of stay. PO intake is recorded at 75- 100% Etiology acute illness As Evidenced by Signs and Symptoms <50% EER in >5 days, >5% wt loss in 1 month Diagnosis Progress(for reassessment Resolved documentation) #1 Nutrition Diagnosis Inadequate oral intake Etiology ARF As Evidenced by Signs and Symptoms pt continues to meet 100%/93% of kcal/protein needs Diagnosis Progress(for reassessment Resolved documentation) Is patient on ventilator? No Is Patient Ambulatory and/or Out of Bed Yes REE-([facility] [place]-ambulatory/OOB) [ 1491.022 [id number]] Kcal/Kg value to use for calculation 25 Approximate Energy Requirements Using 1508 kcal/Kg Calculation Used for Recommendations Kcal/kg Additional Notes Pro needs 1-1.2g/kg @ 60k -72g/day Fluid needs 1ml/kcal or per MD Nutrition Intervention Change Diet Order: continue Nutrition Support: n/a Add Supplement/Snack (indicate name/kcal n/a /protein ) Goal #1 PO intake of meals to be 75% or greater daily for LOS Goal #2 Weight to stabilize +/-3% current weight for LOS Follow-Up By: 08/07/21 Additional Comments f/u: po intake, weight
[2021-07-22] MEDS: ENOXAPARIN 40 MG/0.4 ML INJ SUB-Q SCH (21:05)
[2021-07-22] MEDS: ACETAMINOPHEN 325 MG TAB PO PRN (21:05)
[2021-07-23 05:12] LABS: Basophils % (Auto) 0.4 % (0.0-1.8); Eosinophils # (Auto) 0.1 K/mm3 (0.0-0.4); Eosinophils % (Auto) 0.8 % (0.0-4.3); Hematocrit 37.6 % (30.3-42.9); Hemoglobin 12.1 gm/dl (10.1-14.3); Lymphocytes # (Auto) 0.9 K/mm3 (1.2-5.4); Lymphocytes % (Auto) 7.9 % (13.4-35.0); Mean Corpuscular HGB Conc 32 % (30-34); Mean Corpuscular Volume 98 fl (79-97); Monocytes # (Auto) 0.6 K/mm3 (0.0-0.8); Monocytes % (Auto) 5.6 % (0.0-7.3); Platelet Count 367 K/mm3 (140-440); Red Blood Count 3.84 M/mm3 (3.65-5.03); Red Cell Distribution Width 16.2 % (13.2-15.2)
[2021-07-23 05:24] LABS: Blood Urea Nitrogen 11 mg/dL (7-17); Calcium 9.3 mg/dL (8.4-10.2); Hemolysis Index 1
[2021-07-23 05:41] LABS: BUN/Creatinine Ratio 55
--- NOTE | 2021-07-23 08:09 | Progress Note ---
Assessment and Plan Assessment and plan: #Acute hypoxic respiratory failure -Currently on high flow nasal cannula with nonrebreather -BiPAP at night as tolerated -Low threshold for intubation as patient is persistently tachypneic and tachycardic -s/p prednisone taper -Pulmonology following, assistance appreciated -Referral sent for LTACH, patient declined x3 -encouraged prone positioning -ABG ordered #Metabolic alkalosis -Bicarbonate 44 -Patient received multiple doses of Lasix over course of hospital stay -ABG ordered to evaluate for respiratory component #Heart failure with preserved ejection fraction -TTE: LVEF 55-60% with diastolic dysfunction -will continue to monitor for signs of fluid overload #COVID-19 infection -Continue Covid vitamins #Type 2 diabetes -continue Lantus 15 units daily and sliding scale insulin #Dysuria #Possible UTI -s/p levaquin #Anxiety -Stable -continue Xanax #DVT prophylaxis -Lovenox 40 daily #Deconditioning -Will benefit from SNF after prolonged hospital stay Resolved issues #Sepsis secondary to COVID-19 #Iatrogenic diarrhea #Hypomagnesemia #Hyponatremia #Protein calorie malnutrition Disposition Plan: Continue medical management Total Time Spent with Patient (Minutes): 30 minutes History Interval history: No acute events overnight. On HFNC with nonrebreather mask at 15 L/min. Tolerated BiPAP overnight. She reports feeling "very bad". Hospitalist Physical - Physical exam Narrative exam: GENERAL: Well-developed well-nourished. Lying in bed in no acute distress. HEENT: High flow nasal cannula at 40L/100% and NRB @15LPM CHEST/LUNGS: Coarse breath sounds bilaterally. HEART/CARDIOVASCULAR: Tachycardic. No murmur, rubs or gallops appreciated. ABDOMEN: +BS. NT/ND. PSYCH: Cooperative. - Constitutional Vitals: Temp Pulse Resp BP Pulse Ox 98.9 F 111 H 40 H 147/78 99 07/23/21 07:34 07/23/21 07:57 07/23/21 07:57 07/23/21 07:57 07/23/21 07:57 General appearance: Present: no acute distress, well-nourished, obese, other (Looks tired) Results - Labs CBC & Chem 7: 07/23/21 04:35 07/23/21 04:35 Labs: Laboratory Last Values WBC 10.8 K/mm3 (4.5-11.0) 07/23/21 04:35 RBC 3.84 M/mm3 (3.65-5.03) 07/23/21 04:35 Hgb 12.1 gm/dl (10.1-14.3) 07/23/21 04:35 Hct 37.6 % (30.3-42.9) 07/23/21 04:35 MCV 98 fl (79-97) H 07/23/21 04:35 MCH 32 pg (28-32) 07/23/21 04:35 MCHC 32 % (30-34) 07/23/21 04:35 RDW 16.2 % (13.2-15.2) H 07/23/21 04:35 Plt Count 367 K/mm3 (140-440) 07/23/21 04:35 Lymph % (Auto) 7.9 % (13.4-35.0) L 07/23/21 04:35 [place] % (Auto) 5.6 % (0.0-7.3) 07/23/21 04:35 Eos % (Auto) 0.8 % (0.0-4.3) 07/23/21 04:35 Baso % (Auto) 0.4 % (0.0-1.8) 07/23/21 04:35 Lymph # (Auto) 0.9 K/mm3 (1.2-5.4) L 07/23/21 04:35 [place] # (Auto) 0.6 K/mm3 (0.0-0.8) 07/23/21 04:35 Eos # (Auto) 0.1 K/mm3 (0.0-0.4) 07/23/21 04:35 Baso # (Auto) 0.0 K/mm3 (0.0-0.1) 07/23/21 04:35 Add Manual Diff Complete 07/09/21 04:45 Total Counted 100 07/09/21 04:45 Seg Neutrophils % 85.3 % (40.0-70.0) H 07/23/21 04:35 Seg Neuts % (Manual) 82.0 % (40.0-70.0) H 07/09/21 04:45 Band Neutrophils % 1.0 % 05/12/21 04:05 Lymphocytes % (Manual) 13.0 % (13.4-35.0) L 07/09/21 04:45 Monocytes % (Manual) 3.0 % (0.0-7.3) 07/09/21 04:45 Eosinophils % (Manual) 2.0 % (0.0-4.3) 07/09/21 04:45 Nucleated RBC % Not Reportable 07/09/21 04:45 Seg Neutrophils # 9.2 K/mm3 (1.8-7.7) H 07/23/21 04:35 Seg Neutrophils # Man 7.8 K/mm3 (1.8-7.7) H 07/09/21 04:45 Band Neutrophils # 0.0 K/mm3 07/09/21 04:45 Lymphocytes # (Manual) 1.2 K/mm3 (1.2-5.4) 07/09/21 04:45 Abs React Lymphs (Man) 0.0 K/mm3 07/09/21 04:45 Monocytes # (Manual) 0.3 K/mm3 (0.0-0.8) 07/09/21 04:45 Eosinophils # (Manual) 0.2 K/mm3 (0.0-0.4) 07/09/21 04:45 Basophils # (Manual) 0.0 K/mm3 (0.0-0.1) 07/09/21 04:45 Metamyelocytes # 0.0 K/mm3 07/09/21 04:45 Myelocytes # 0.0 K/mm3 07/09/21 04:45 Promyelocytes # 0.0 K/mm3 07/09/21 04:45 Blast Cells # 0.0 K/mm3 07/09/21 04:45 WBC Morphology Not Reportable 07/09/21 04:45 Hypersegmented Neuts Not Reportable 07/09/21 04:45 Hyposegmented Neuts Not Reportable 07/09/21 04:45 Hypogranular Neuts Not Reportable 07/09/21 04:45 Smudge Cells Not Reportable 07/09/21 04:45 Toxic Granulation Not Reportable 07/09/21 04:45 Toxic Vacuolation Not Reportable 07/09/21 04:45 Dohle Bodies Not Reportable 07/09/21 04:45 Pelger-Huet Anomaly Not Reportable 07/09/21 04:45 Janelle Rods Not Reportable 07/09/21 04:45 Platelet Estimate Consistent w auto 07/09/21 04:45 Clumped Platelets Not Reportable 07/09/21 04:45 Plt Clumps, EDTA Not Reportable 07/09/21 04:45 Large Platelets Not Reportable 07/09/21 04:45 Giant Platelets Rare 07/09/21 04:45 Platelet Satelliting Not Reportable 07/09/21 04:45 Plt Morphology Comment Not Reportable 07/09/21 04:45 RBC Morphology Not Reportable 07/09/21 04:45 Dimorphic RBCs Not Reportable 07/09/21 04:45 Polychromasia Not Reportable 07/09/21 04:45 Hypochromasia Few 07/09/21 04:45 Poikilocytosis Not Reportable 07/09/21 04:45 Anisocytosis Not Reportable 07/09/21 04:45 Microcytosis Not Reportable 07/09/21 04:45 Macrocytosis Not Reportable 07/09/21 04:45 Spherocytes Not Reportable 07/09/21 04:45 Pappenheimer Bodies Not Reportable 07/09/21 04:45 Sickle Cells Not Reportable 07/09/21 04:45 Target Cells Not Reportable 07/09/21 04:45 Tear Drop Cells Not Reportable 07/09/21 04:45 Ovalocytes Not Reportable 07/09/21 04:45 Stomatocytes 1+ 07/09/21 04:45 Helmet Cells Not Reportable 07/09/21 04:45 Ahuja-Purple Sage Bodies Not Reportable 07/09/21 04:45 [place] Rings Not Reportable 07/09/21 04:45 Crow Cells Not Reportable 07/09/21 04:45 Bite Cells Not Reportable 07/09/21 04:45 Crenated Cell Not Reportable 07/09/21 04:45 Elliptocytes Not Reportable 07/09/21 04:45 Acanthocytes (Spur) Not Reportable 07/09/21 04:45 Rouleaux Not Reportable 07/09/21 04:45 Hemoglobin C Crystals Not Reportable 07/09/21 04:45 Schistocytes Not Reportable 07/09/21 04:45 Malaria parasites Not Reportable 07/09/21 04:45 Justin Bodies Not Reportable 07/09/21 04:45 Hem Pathologist Commnt No 07/09/21 04:45 D-Dimer 638.35 ng/mlDDU (0-234) H 07/09/21 04:45 ABG pH 7.338 pH Units (7.350-7.450) L 07/22/21 12:05 POC ABG pCO2 67.9 mmHg (32.0-48.0) H 07/19/21 07:54 ABG pCO2 85.7 mm Hg 07/22/21 12:05 POC ABG pO2 131.0 mmHg (83-108) H 07/19/21 07:54 ABG pO2 66.1 mm Hg (80.0-90.0) L 07/22/21 12:05 POC ABG HCO3 38.3 07/19/21 07:54 ABG HCO3 45.0 mmol/L (20.0-26.0) H 07/22/21 12:05 ABG O2 Saturation 94.2 % (95.0-99.0) L 07/22/21 12:05 ABG O2 Content 16.8 (0.0-44) 07/22/21 12:05 POC ABG Base Excess 10.3 07/19/21 07:54 ABG Base Excess 15.2 mmol/L (-2.0-3.0) H 07/22/21 12:05 ABG Hemoglobin 13.0 gm/dl (12.0-16.0) 07/22/21 12:05 ABG Oxyhemoglobin 97.9 (94-98) 07/19/21 07:54 ABG Carboxyhemoglobin 1.9 % (0.0-5.0) 07/22/21 12:05 ABG Methemoglobin 0.5 % (0.0-1.5) 07/22/21 12:05 ABG Sodium 138.5 mmol/L (136.0-145.0) 07/19/21 07:54 ABG Potassium 4.3 mmol/L (3.40-4.50) 07/19/21 07:54 ABG Chloride 97.0 mmol/L (98-107) L 07/19/21 07:54 ABG Glucose 133 mg/dL (65-95) H 07/19/21 07:54 Oxyhemoglobin 91.9 % (95.0-99.0) L 07/22/21 12:05 Carboxyhemoglobin 1.0 (0.5-1.5) 07/19/21 07:54 FiO2 100 % 07/22/21 12:05 FiO2 % 100.0 07/19/21 07:54 Sodium 142 mmol/L (137-145) 07/23/21 04:35 Potassium 4.5 mmol/L (3.6-5.0) 07/23/21 04:35 Chloride 93.9 mmol/L (98-107) L 07/23/21 04:35 Carbon Dioxide 44 mmol/L (22-30) H* 07/23/21 04:35 Anion Gap 9 mmol/L 07/23/21 04:35 BUN 11 mg/dL (7-17) 07/23/21 04:35 Creatinine < 0.2 mg/dL (0.6-1.2) L 07/23/21 04:35 Estimated GFR > 60 ml/min 07/23/21 04:35 BUN/Creatinine Ratio 55 % 07/23/21 04:35 Glucose 149 mg/dL (65-100) H 07/23/21 04:35 POC Glucose 116 mg/dL (70-105) H 07/23/21 07:20 Hemoglobin A1c 8.5 % (4-6) H 04/18/21 07:36 Calcium 9.3 mg/dL (8.4-10.2) 07/23/21 04:35 Phosphorus 3.70 mg/dL (2.5-4.5) 07/23/21 04:35 Magnesium 2.10 mg/dL (1.7-2.3) 07/23/21 04:35 Ferritin 155.9 ng/mL (10.0-200.0) 07/09/21 04:45 Total Bilirubin 0.20 mg/dL (0.1-1.2) 07/20/21 04:00 AST 18 units/L (5-40) 07/20/21 04:00 ALT 40 units/L (7-56) 07/20/21 04:00 Alkaline Phosphatase 70 units/L (35-129) 07/20/21 04:00 Lactate Dehydrogenase 475 units/L (91-180) H 06/05/21 05:26 C-Reactive Protein 4.30 mg/dL (0.00-1.30) H 07/09/21 04:45 NT-Pro-B Natriuret Pep 59.45 pg/mL (0-450) 07/07/21 13:40 Total Protein 7.1 g/dL (6.3-8.2) 07/20/21 04:00 Albumin 3.2 g/dL (3.9-5) L 07/20/21 04:00 Albumin/Globulin Ratio 0.8 % 07/20/21 04:00 Triglycerides < 9 mg/dL (2-149) 05/03/21 04:30 Procalcitonin < 0.05 ng/mL (<0.15) 05/23/21 09:50 Arterial Blood Glucose 133 mg/dL (65-95) H 07/19/21 07:54 Arterial Blood Ionized Calcium 4.9 mg/dL (4.6-5.3) 05/03/21 04:49 Coronavirus (PCR) Positive (Negative) A 06/05/21 08:30 Amos/IV: Voiding Method External Female Catheter Active Medications - Current Medications Current Medications: Generic Name Dose Route Start Last Admin Trade Name Freq PRN Reason Stop Dose Admin Acetaminophen 650 mg 07/02/21 17:48 07/22/21 21:05 Acetaminophen 325 Mg Tab PO 650 mg Q4H PRN Administration Pain, Mild (1-3) Albuterol 2.5 mg 04/16/21 13:39 04/21/21 20:39 Albuterol 2.5 Mg/3 Ml Nebu IH 2.5 mg Q4HRT PRN Administration Shortness Of Breath Alprazolam 2 mg 07/04/21 12:00 07/22/21 21:05 Alprazolam 1 Mg Tab PO 2 mg BID TUTU Administration Cholecalciferol 1,000 unit 04/17/21 10:00 07/22/21 10:59 Cholecalciferol (Vit D3) 1000 Unit (25 Mcg) Tab PO 1,000 unit QDAY TUTU Administration Enoxaparin Sodium 40 mg 05/19/21 22:00 07/22/21 21:05 Enoxaparin 40 Mg/0.4 Ml Inj SUB-Q 40 mg QDAY@2200 TUTU Administration Protocol Ibuprofen 600 mg 07/11/21 11:00 07/22/21 11:38 Ibuprofen 600 Mg Tab PO 600 mg Q6H PRN Administration Ear Pain Insulin Glargine 15 units 06/25/21 10:00 07/22/21 10:59 Insulin Glargine 100 Units/Ml SUB-Q 15 units DAILY TUTU Administration Insulin Human Lispro 0 unit 05/18/21 12:00 07/22/21 21:34 Insulin Lispro 100 Unit/Ml SUB-Q Not Given ACHS [facility] Protocol Ondansetron HCl 4 mg 04/16/21 14:00 05/30/21 10:07 Ondansetron 4 Mg/2 Ml Inj IV 4 mg Q8H PRN Administration Nausea And Vomiting Polyethylene Glycol 17 gm 07/16/21 20:00 Polyethylene Glycol 3350 17 Gm Powder PO QDAY PRN Constipation Sodium Chloride 10 ml 04/16/21 13:39 07/15/21 21:07 Sodium Chloride 0.9% 10 Ml Flush Syringe IV 10 ml PRN PRN Administration LINE FLUSH Zinc Sulfate 220 mg 04/16/21 22:00 07/22/21 21:05 Zinc Sulfate 220 Mg Cap PO 220 mg BID TUTU Administration Zolpidem Tartrate 10 mg 05/26/21 08:56 07/20/21 21:08 Zolpidem 5 Mg Tab PO 10 mg QHS PRN Administration Insomnia Nutrition/Malnutrition Assess - Dietary Evaluation Nutrition/Malnutrition Findings: Nutrition Notes Start: 04/23/21 07:41 Freq: Status: Active Protocol: Document 07/03/21 16:54 GB (Rec: 07/03/21 17:11 GB [id number]) Nutrition Notes Initial or Follow up Reassessment Current Diagnosis Respiratory Failure Other Pertinent Diagnosis oral thrush, COVID-19 pneu Current Diet consistent carbohydrate Labs/Tests 07/03: creatinine 0.3, K 3.2 Pertinent Medications Vit C, Vit D3, D5 (PRN), Prednisone, NaCl, Zn Sulfate Height 4 ft 11.84 in Weight 60.3 kg [place] Body Weight (kg) 45.09 BMI 26.1 Weight change and time frame 04/16/21: 74.843kg 05/17/21: 68.1kg 06/16/21: 60.3kg change of -14.54kg for -19.43% in 60 days. Per MD note: pt has been diuresed thorughout stay. Weight Status Overweight Subjective/Other Information MD notes 07/03: pt showing improvement, prednisone weaning down, possible weaning of O2. Last BM: 07/02 PO intake recorded at 50-100% Percent of energy/protein needs met: PO intake of meals meet 75% or greater of EEN Burn Absent Trauma Absent GI Symptoms None Food Allergy No Skin Integrity/Comment skin tear rt/lt buttocks Current % PO Good (75-100%) Minimum of two criteria No #3 Nutrition Diagnosis No nutrition diagnosis at this time Etiology respiratory failure As Evidenced by Signs and Symptoms recovering, good po, weight loss r/t diurese therapy #2 Nutrition Diagnosis Malnutrition Comments: Wt loss due to diurese for most of stay. PO intake is recorded at 75- 100% Etiology acute illness As Evidenced by Signs and Symptoms <50% EER in >5 days, >5% wt loss in 1 month Diagnosis Progress(for reassessment Resolved documentation) #1 Nutrition Diagnosis Inadequate oral intake Etiology ARF As Evidenced by Signs and Symptoms pt continues to meet 100%/93% of kcal/protein needs Diagnosis Progress(for reassessment Resolved documentation) Is patient on ventilator? No Is Patient Ambulatory and/or Out of Bed Yes REE-([place]-St. Jeor-ambulatory/OOB) [ 1491.022 [id number]] Kcal/Kg value to use for calculation 25 Approximate Energy Requirements Using 1508 kcal/Kg Calculation Used for Recommendations Kcal/kg Additional Notes Pro needs 1-1.2g/kg @ 60k -72g/day Fluid needs 1ml/kcal or per MD Nutrition Intervention Change Diet Order: continue Nutrition Support: n/a Add Supplement/Snack (indicate name/kcal n/a /protein ) Goal #1 PO intake of meals to be 75% or greater daily for LOS Goal #2 Weight to stabilize +/-3% current weight for LOS Follow-Up By: 08/07/21 Additional Comments f/u: po intake, weight
[2021-07-23] MEDS: INSULIN LISPRO 100 UNIT/ML SUB-Q SCH ×4 (08:34→21:35)
[2021-07-23] MEDS: ALPRAZolam 1 MG TAB PO SCH ×2 (09:51→21:07)
[2021-07-23] MEDS: CHOLECALCIFEROL (VIT D3) 1000 UNIT (25 mcg) TAB PO SCH (09:51)
[2021-07-23] MEDS: INSULIN GLARGINE 100 UNITS/ML SUB-Q SCH (09:52)
[2021-07-23] MEDS: ZINC SULFATE 220 MG CAP PO SCH ×2 (09:52→21:07)
--- NOTE | 2021-07-23 13:04 | Progress Note ---
Assessment and Plan - Patient Problems (1) Pneumonia due to SARS-associated coronavirus Current Visit: Yes Status: Acute (2) Acute hypoxemic respiratory failure Current Visit: Yes Status: Acute (3) Obesity hypoventilation syndrome Current Visit: Yes Status: Acute (4) Pneumonia Current Visit: Yes Status: Acute Qualifiers: Aspiration pneumonia type: unspecified Laterality: unspecified laterality Lung location: unspecified part of lung (5) Transaminitis Current Visit: No Status: Acute (6) Oral thrush Current Visit: Yes Status: Acute Subjective Principal diagnosis: Covid-19 Interval history: awake Objective Vital Signs - 12hr 07/23/21 07/23/21 07/23/21 02:00 03:00 04:00 Temperature 98.4 F Pulse Rate 99 H 101 H 103 H Pulse Rate [ From Monitor] Respiratory 39 H 38 H 40 H Rate Blood Pressure 137/80 132/83 135/87 O2 Sat by Pulse 97 98 99 Oximetry 07/23/21 07/23/21 07/23/21 04:52 05:00 06:00 Temperature Pulse Rate 105 H 105 H 108 H Pulse Rate [ From Monitor] Respiratory 40 H 38 H 46 H Rate Blood Pressure 135/87 128/84 136/82 O2 Sat by Pulse 99 99 98 Oximetry 07/23/21 07/23/21 07/23/21 07:00 07:34 07:57 Temperature 98.9 F Pulse Rate 112 H 111 H Pulse Rate [ From Monitor] Respiratory 48 H 40 H Rate Blood Pressure 147/78 147/78 O2 Sat by Pulse 99 Oximetry 07/23/21 07/23/21 07/23/21 08:00 08:26 09:00 Temperature Pulse Rate 115 H 118 H Pulse Rate [ 116 H From Monitor] Respiratory 40 H 46 H Rate Blood Pressure 145/78 145/68 O2 Sat by Pulse 100 98 97 Oximetry 07/23/21 07/23/21 07/23/21 10:00 11:00 12:00 Temperature Pulse Rate 118 H 115 H 120 H Pulse Rate [ 116 H From Monitor] Respiratory 43 H 46 H 52 H Rate Blood Pressure 135/74 131/73 125/84 O2 Sat by Pulse 97 99 94 Oximetry 07/23/21 12:18 Temperature 98.4 F Pulse Rate Pulse Rate [ From Monitor] Respiratory Rate Blood Pressure O2 Sat by Pulse Oximetry Constitutional: alert, other (on bipap) Eyes: non-icteric ENT: oropharynx moist Neck: supple Effort: normal Ascultation: Bilateral: diminished breath sounds Cardiovascular: regular rate and rhythm Gastrointestinal: normoactive bowel sounds, soft, non-tender, non-distended Integumentary: normal Extremities: no cyanosis, no edema, pink and warm Neurologic: non-focal exam, pupils equal and round Psychiatric: mood appropriate, affect normal CBC and BMP: 07/23/21 04:35 07/23/21 04:35 ABG, PT/INR, D-dimer: ABG ABG pH 7.338 pH Units (7.350-7.450) L 07/22/21 12:05 POC ABG pCO2 67.9 mmHg (32.0-48.0) H 07/19/21 07:54 ABG pCO2 85.7 mm Hg 07/22/21 12:05 POC ABG pO2 131.0 mmHg (83-108) H 07/19/21 07:54 ABG pO2 66.1 mm Hg (80.0-90.0) L 07/22/21 12:05 POC ABG HCO3 38.3 07/19/21 07:54 ABG O2 Saturation 94.2 % (95.0-99.0) L 07/22/21 12:05 PT/INR, D-dimer D-Dimer 638.35 ng/mlDDU (0-234) H 07/09/21 04:45 Abnormal lab findings: Abnormal Labs 04/16/21 04/16/21 04/16/21 11:42 11:42 11:42 WBC MCV MCH MCHC RDW 16.1 H Lymph % (Auto) 7.8 L Andrews % (Auto) Eos % (Auto) Lymph # (Auto) 0.8 L Andrews # (Auto) Eos # (Auto) Baso # (Auto) Seg Neutrophils % 87.7 H Seg Neuts % (Manual) Lymphocytes % (Manual) Seg Neutrophils # 8.5 H Seg Neutrophils # Man Lymphocytes # (Manual) D-Dimer 338.70 H ABG pH POC ABG pCO2 POC ABG pO2 ABG pO2 ABG HCO3 ABG O2 Saturation ABG Base Excess ABG Oxyhemoglobin ABG Sodium ABG Chloride ABG Glucose Oxyhemoglobin Carboxyhemoglobin Sodium Potassium Chloride Carbon Dioxide BUN Creatinine Glucose 194 H POC Glucose Hemoglobin A1c Magnesium Ferritin AST ALT Alkaline Phosphatase Lactate Dehydrogenase C-Reactive Protein Total Protein 8.4 H Albumin 3.8 L Arterial Blood Glucose Coronavirus (PCR) 04/16/21 04/16/21 04/17/21 11:42 11:42 03:50 WBC MCV MCH MCHC RDW 16.0 H Lymph % (Auto) 7.7 L Andrews % (Auto) Eos % (Auto) Lymph # (Auto) 0.6 L Andrews # (Auto) Eos # (Auto) Baso # (Auto) Seg Neutrophils % 89.8 H Seg Neuts % (Manual) Lymphocytes % (Manual) Seg Neutrophils # Seg Neutrophils # Man Lymphocytes # (Manual) D-Dimer ABG pH POC ABG pCO2 POC ABG pO2 ABG pO2 ABG HCO3 ABG O2 Saturation ABG Base Excess ABG Oxyhemoglobin ABG Sodium ABG Chloride ABG Glucose Oxyhemoglobin Carboxyhemoglobin Sodium Potassium Chloride Carbon Dioxide BUN Creatinine Glucose 195 H POC Glucose Hemoglobin A1c Magnesium Ferritin 254.3 H AST ALT Alkaline Phosphatase Lactate Dehydrogenase 359 H C-Reactive Protein 15.20 H Total Protein Albumin Arterial Blood Glucose Coronavirus (PCR) 04/17/21 04/17/21 04/17/21 03:50 08:26 08:26 WBC MCV MCH MCHC RDW Lymph % (Auto) Andrews % (Auto) Eos % (Auto) Lymph # (Auto) Andrews # (Auto) Eos # (Auto) Baso # (Auto) Seg Neutrophils % Seg Neuts % (Manual) Lymphocytes % (Manual) Seg Neutrophils # Seg Neutrophils # Man Lymphocytes # (Manual) D-Dimer 262.48 H ABG pH POC ABG pCO2 POC ABG pO2 ABG pO2 ABG HCO3 ABG O2 Saturation ABG Base Excess ABG Oxyhemoglobin ABG Sodium ABG Chloride ABG Glucose Oxyhemoglobin Carboxyhemoglobin Sodium Potassium Chloride Carbon Dioxide BUN 20 H Creatinine 0.5 L Glucose 249 H 225 H POC Glucose Hemoglobin A1c Magnesium Ferritin AST ALT Alkaline Phosphatase Lactate Dehydrogenase 338 H C-Reactive Protein 17.20 H Total Protein Albumin 3.2 L Arterial Blood Glucose Coronavirus (PCR) 04/17/21 04/17/21 04/17/21 08:26 15:04 Unknown WBC MCV MCH MCHC RDW Lymph % (Auto) Andrews % (Auto) Eos % (Auto) Lymph # (Auto) Andrews # (Auto) Eos # (Auto) Baso # (Auto) Seg Neutrophils % Seg Neuts % (Manual) Lymphocytes % (Manual) Seg Neutrophils # Seg Neutrophils # Man Lymphocytes # (Manual) D-Dimer ABG pH POC ABG pCO2 POC ABG pO2 ABG pO2 ABG HCO3 ABG O2 Saturation ABG Base Excess ABG Oxyhemoglobin ABG Sodium ABG Chloride ABG Glucose Oxyhemoglobin Carboxyhemoglobin Sodium Potassium Chloride Carbon Dioxide BUN 20 H Creatinine 0.5 L Glucose 246 H POC Glucose Hemoglobin A1c Magnesium Ferritin 392.0 H AST ALT Alkaline Phosphatase Lactate Dehydrogenase C-Reactive Protein Total Protein 8.3 H Albumin 3.1 L Arterial Blood Glucose Coronavirus (PCR) Positive A 04/18/21 04/18/21 04/18/21 05:06 05:06 07:36 WBC 11.6 H MCV MCH MCHC RDW 16.1 H Lymph % (Auto) Andrews % (Auto) Eos % (Auto) Lymph # (Auto) Andrews # (Auto) Eos # (Auto) Baso # (Auto) Seg Neutrophils % Seg Neuts % (Manual) Lymphocytes % (Manual) Seg Neutrophils # Seg Neutrophils # Man Lymphocytes # (Manual) D-Dimer ABG pH POC ABG pCO2 POC ABG pO2 ABG pO2 ABG HCO3 ABG O2 Saturation ABG Base Excess ABG Oxyhemoglobin ABG Sodium ABG Chloride ABG Glucose Oxyhemoglobin Carboxyhemoglobin Sodium Potassium 5.2 H Chloride Carbon Dioxide BUN 22 H Creatinine 0.5 L Glucose 315 H POC Glucose Hemoglobin A1c 8.5 H Magnesium Ferritin AST ALT Alkaline Phosphatase Lactate Dehydrogenase C-Reactive Protein Total Protein Albumin 3.3 L Arterial Blood Glucose Coronavirus (PCR) 04/18/21 04/18/21 04/18/21 11:59 16:43 23:24 WBC MCV MCH MCHC RDW Lymph % (Auto) Andrews % (Auto) Eos % (Auto) Lymph # (Auto) Andrews # (Auto) Eos # (Auto) Baso # (Auto) Seg Neutrophils % Seg Neuts % (Manual) Lymphocytes % (Manual) Seg Neutrophils # Seg Neutrophils # Man Lymphocytes # (Manual) D-Dimer ABG pH POC ABG pCO2 POC ABG pO2 ABG pO2 ABG HCO3 ABG O2 Saturation ABG Base Excess ABG Oxyhemoglobin ABG Sodium ABG Chloride ABG Glucose Oxyhemoglobin Carboxyhemoglobin Sodium Potassium Chloride Carbon Dioxide BUN Creatinine Glucose POC Glucose 284 H 273 H 290 H Hemoglobin A1c Magnesium Ferritin AST ALT Alkaline Phosphatase Lactate Dehydrogenase C-Reactive Protein Total Protein Albumin Arterial Blood Glucose Coronavirus (PCR) 04/19/21 04/19/21 04/19/21 04:19 04:19 08:10 WBC MCV MCH MCHC RDW 15.7 H Lymph % (Auto) Andrews % (Auto) Eos % (Auto) Lymph # (Auto) Andrews # (Auto) Eos # (Auto) Baso # (Auto) Seg Neutrophils % Seg Neuts % (Manual) Lymphocytes % (Manual) Seg Neutrophils # Seg Neutrophils # Man Lymphocytes # (Manual) D-Dimer ABG pH POC ABG pCO2 POC ABG pO2 ABG pO2 ABG HCO3 ABG O2 Saturation ABG Base Excess ABG Oxyhemoglobin ABG Sodium ABG Chloride ABG Glucose Oxyhemoglobin Carboxyhemoglobin Sodium Potassium Chloride Carbon Dioxide BUN 27 H Creatinine 0.4 L Glucose 184 H POC Glucose 194 H Hemoglobin A1c Magnesium Ferritin AST ALT Alkaline Phosphatase Lactate Dehydrogenase C-Reactive Protein Total Protein Albumin 3.1 L Arterial Blood Glucose Coronavirus (PCR) 04/19/21 04/19/21 04/19/21 11:38 16:25 22:04 WBC MCV MCH MCHC RDW Lymph % (Auto) Andrews % (Auto) Eos % (Auto) Lymph # (Auto) Andrews # (Auto) Eos # (Auto) Baso # (Auto) Seg Neutrophils % Seg Neuts % (Manual) Lymphocytes % (Manual) Seg Neutrophils # Seg Neutrophils # Man Lymphocytes # (Manual) D-Dimer ABG pH POC ABG pCO2 POC ABG pO2 ABG pO2 ABG HCO3 ABG O2 Saturation ABG Base Excess ABG Oxyhemoglobin ABG Sodium ABG Chloride ABG Glucose Oxyhemoglobin Carboxyhemoglobin Sodium Potassium Chloride Carbon Dioxide BUN Creatinine Glucose POC Glucose 224 H 297 H 251 H Hemoglobin A1c Magnesium Ferritin AST ALT Alkaline Phosphatase Lactate Dehydrogenase C-Reactive Protein Total Protein Albumin Arterial Blood Glucose Coronavirus (PCR) 04/20/21 04/20/21 04/20/21 05:28 08:43 16:21 WBC MCV MCH MCHC RDW Lymph % (Auto) Andrews % (Auto) Eos % (Auto) Lymph # (Auto) Andrews # (Auto) Eos # (Auto) Baso # (Auto) Seg Neutrophils % Seg Neuts % (Manual) Lymphocytes % (Manual) Seg Neutrophils # Seg Neutrophils # Man Lymphocytes # (Manual) D-Dimer ABG pH POC ABG pCO2 POC ABG pO2 ABG pO2 ABG HCO3 ABG O2 Saturation ABG Base Excess ABG Oxyhemoglobin ABG Sodium ABG Chloride ABG Glucose Oxyhemoglobin Carboxyhemoglobin Sodium Potassium Chloride Carbon Dioxide BUN 27 H Creatinine Glucose 192 H POC Glucose 173 H 253 H Hemoglobin A1c Magnesium Ferritin AST ALT Alkaline Phosphatase Lactate Dehydrogenase C-Reactive Protein Total Protein Albumin 3.0 L Arterial Blood Glucose Coronavirus (PCR) 04/21/21 04/21/21 04/21/21 07:58 12:05 16:08 WBC MCV MCH MCHC RDW Lymph % (Auto) Andrews % (Auto) Eos % (Auto) Lymph # (Auto) Andrews # (Auto) Eos # (Auto) Baso # (Auto) Seg Neutrophils % Seg Neuts % (Manual) Lymphocytes % (Manual) Seg Neutrophils # Seg Neutrophils # Man Lymphocytes # (Manual) D-Dimer ABG pH POC ABG pCO2 POC ABG pO2 ABG pO2 ABG HCO3 ABG O2 Saturation ABG Base Excess ABG Oxyhemoglobin ABG Sodium ABG Chloride ABG Glucose Oxyhemoglobin Carboxyhemoglobin Sodium Potassium Chloride Carbon Dioxide BUN Creatinine Glucose POC Glucose 140 H 252 H 214 H Hemoglobin A1c Magnesium Ferritin AST ALT Alkaline Phosphatase Lactate Dehydrogenase C-Reactive Protein Total Protein Albumin Arterial Blood Glucose Coronavirus (PCR) 04/21/21 04/22/21 04/22/21 21:42 08:37 12:01 WBC MCV MCH MCHC RDW Lymph % (Auto) Andrews % (Auto) Eos % (Auto) Lymph # (Auto) Andrews # (Auto) Eos # (Auto) Baso # (Auto) Seg Neutrophils % Seg Neuts % (Manual) Lymphocytes % (Manual) Seg Neutrophils # Seg Neutrophils # Man Lymphocytes # (Manual) D-Dimer ABG pH 7.457 H POC ABG pCO2 POC ABG pO2 49.4 L ABG pO2 ABG HCO3 ABG O2 Saturation ABG Base Excess ABG Oxyhemoglobin 85.6 L ABG Sodium ABG Chloride ABG Glucose 121 H Oxyhemoglobin Carboxyhemoglobin 0.3 L Sodium Potassium Chloride Carbon Dioxide BUN Creatinine Glucose POC Glucose 162 H 227 H Hemoglobin A1c Magnesium Ferritin AST ALT Alkaline Phosphatase Lactate Dehydrogenase C-Reactive Protein Total Protein Albumin Arterial Blood Glucose 121 H Coronavirus (PCR) 04/22/21 04/22/21 04/23/21 16:26 22:23 04:52 WBC MCV MCH MCHC RDW 15.7 H Lymph % (Auto) Andrews % (Auto) Eos % (Auto) Lymph # (Auto) Andrews # (Auto) Eos # (Auto) Baso # (Auto) Seg Neutrophils % Seg Neuts % (Manual) Lymphocytes % (Manual) Seg Neutrophils # Seg Neutrophils # Man Lymphocytes # (Manual) D-Dimer ABG pH POC ABG pCO2 POC ABG pO2 ABG pO2 ABG HCO3 ABG O2 Saturation ABG Base Excess ABG Oxyhemoglobin ABG Sodium ABG Chloride ABG Glucose Oxyhemoglobin Carboxyhemoglobin Sodium Potassium Chloride Carbon Dioxide BUN Creatinine Glucose POC Glucose 200 H 136 H Hemoglobin A1c Magnesium Ferritin AST ALT Alkaline Phosphatase Lactate Dehydrogenase C-Reactive Protein Total Protein Albumin Arterial Blood Glucose Coronavirus (PCR) 04/23/21 04/23/21 04/23/21 04:52 12:06 17:41 WBC MCV MCH MCHC RDW Lymph % (Auto) Andrews % (Auto) Eos % (Auto) Lymph # (Auto) Andrews # (Auto) Eos # (Auto) Baso # (Auto) Seg Neutrophils % Seg Neuts % (Manual) Lymphocytes % (Manual) Seg Neutrophils # Seg Neutrophils # Man Lymphocytes # (Manual) D-Dimer ABG pH POC ABG pCO2 POC ABG pO2 ABG pO2 ABG HCO3 ABG O2 Saturation ABG Base Excess ABG Oxyhemoglobin ABG Sodium ABG Chloride ABG Glucose Oxyhemoglobin Carboxyhemoglobin Sodium 136 L Potassium Chloride 97.7 L Carbon Dioxide BUN 23 H Creatinine Glucose 101 H POC Glucose 202 H 169 H Hemoglobin A1c Magnesium Ferritin AST 46 H ALT Alkaline Phosphatase Lactate Dehydrogenase C-Reactive Protein Total Protein Albumin 3.3 L Arterial Blood Glucose Coronavirus (PCR) 04/23/21 04/24/21 04/24/21 23:08 05:17 08:38 WBC MCV MCH MCHC RDW Lymph % (Auto) Andrews % (Auto) Eos % (Auto) Lymph # (Auto) Andrews # (Auto) Eos # (Auto) Baso # (Auto) Seg Neutrophils % Seg Neuts % (Manual) Lymphocytes % (Manual) Seg Neutrophils # Seg Neutrophils # Man Lymphocytes # (Manual) D-Dimer ABG pH POC ABG pCO2 POC ABG pO2 ABG pO2 ABG HCO3 ABG O2 Saturation ABG Base Excess ABG Oxyhemoglobin ABG Sodium ABG Chloride ABG Glucose Oxyhemoglobin Carboxyhemoglobin Sodium Potassium Chloride Carbon Dioxide BUN Creatinine Glucose POC Glucose 111 H 108 H 126 H Hemoglobin A1c Magnesium Ferritin AST ALT Alkaline Phosphatase Lactate Dehydrogenase C-Reactive Protein Total Protein Albumin Arterial Blood Glucose Coronavirus (PCR) 04/24/21 04/24/21 04/24/21 11:54 17:57 21:23 WBC MCV MCH MCHC RDW Lymph % (Auto) Andrews % (Auto) Eos % (Auto) Lymph # (Auto) Andrews # (Auto) Eos # (Auto) Baso # (Auto) Seg Neutrophils % Seg Neuts % (Manual) Lymphocytes % (Manual) Seg Neutrophils # Seg Neutrophils # Man Lymphocytes # (Manual) D-Dimer ABG pH POC ABG pCO2 POC ABG pO2 ABG pO2 ABG HCO3 ABG O2 Saturation ABG Base Excess ABG Oxyhemoglobin ABG Sodium ABG Chloride ABG Glucose Oxyhemoglobin Carboxyhemoglobin Sodium Potassium Chloride Carbon Dioxide BUN Creatinine Glucose POC Glucose 147 H 177 H 138 H Hemoglobin A1c Magnesium Ferritin AST ALT Alkaline Phosphatase Lactate Dehydrogenase C-Reactive Protein Total Protein Albumin Arterial Blood Glucose Coronavirus (PCR) 04/25/21 04/25/21 04/25/21 07:06 11:23 15:43 WBC MCV MCH MCHC RDW Lymph % (Auto) Andrews % (Auto) Eos % (Auto) Lymph # (Auto) Andrews # (Auto) Eos # (Auto) Baso # (Auto) Seg Neutrophils % Seg Neuts % (Manual) Lymphocytes % (Manual) Seg Neutrophils # Seg Neutrophils # Man Lymphocytes # (Manual) D-Dimer ABG pH POC ABG pCO2 POC ABG pO2 ABG pO2 ABG HCO3 ABG O2 Saturation ABG Base Excess ABG Oxyhemoglobin ABG Sodium ABG Chloride ABG Glucose Oxyhemoglobin Carboxyhemoglobin Sodium Potassium Chloride Carbon Dioxide BUN Creatinine Glucose POC Glucose 147 H 169 H 227 H Hemoglobin A1c Magnesium Ferritin AST ALT Alkaline Phosphatase Lactate Dehydrogenase C-Reactive Protein Total Protein Albumin Arterial Blood Glucose Coronavirus (PCR) 04/25/21 04/26/21 04/26/21 21:22 02:45 05:15 WBC MCV MCH MCHC RDW Lymph % (Auto) Andrews % (Auto) Eos % (Auto) Lymph # (Auto) Andrews # (Auto) Eos # (Auto) Baso # (Auto) Seg Neutrophils % Seg Neuts % (Manual) Lymphocytes % (Manual) Seg Neutrophils # Seg Neutrophils # Man Lymphocytes # (Manual) D-Dimer ABG pH POC ABG pCO2 POC ABG pO2 70.7 L ABG pO2 ABG HCO3 ABG O2 Saturation ABG Base Excess ABG Oxyhemoglobin 93.0 L ABG Sodium 132.7 L ABG Chloride ABG Glucose 115 H Oxyhemoglobin Carboxyhemoglobin Sodium Potassium Chloride 95.8 L Carbon Dioxide 32 H BUN 20 H Creatinine Glucose 102 H POC Glucose 196 H Hemoglobin A1c Magnesium Ferritin AST ALT Alkaline Phosphatase Lactate Dehydrogenase C-Reactive Protein Total Protein Albumin Arterial Blood Glucose 115 H Coronavirus (PCR) 04/26/21 04/26/21 04/26/21 11:49 16:09 21:07 WBC MCV MCH MCHC RDW Lymph % (Auto) Andrews % (Auto) Eos % (Auto) Lymph # (Auto) Andrews # (Auto) Eos # (Auto) Baso # (Auto) Seg Neutrophils % Seg Neuts % (Manual) Lymphocytes % (Manual) Seg Neutrophils # Seg Neutrophils # Man Lymphocytes # (Manual) D-Dimer ABG pH POC ABG pCO2 POC ABG pO2 ABG pO2 ABG HCO3 ABG O2 Saturation ABG Base Excess ABG Oxyhemoglobin ABG Sodium ABG Chloride ABG Glucose Oxyhemoglobin Carboxyhemoglobin Sodium Potassium Chloride Carbon Dioxide BUN Creatinine Glucose POC Glucose 114 H 188 H 136 H Hemoglobin A1c Magnesium Ferritin AST ALT Alkaline Phosphatase Lactate Dehydrogenase C-Reactive Protein Total Protein Albumin Arterial Blood Glucose Coronavirus (PCR) 04/27/21 04/27/21 04/28/21 17:34 22:12 08:26 WBC MCV MCH MCHC RDW Lymph % (Auto) Andrews % (Auto) Eos % (Auto) Lymph # (Auto) Andrews # (Auto) Eos # (Auto) Baso # (Auto) Seg Neutrophils % Seg Neuts % (Manual) Lymphocytes % (Manual) Seg Neutrophils # Seg Neutrophils # Man Lymphocytes # (Manual) D-Dimer ABG pH POC ABG pCO2 POC ABG pO2 ABG pO2 ABG HCO3 ABG O2 Saturation ABG Base Excess ABG Oxyhemoglobin ABG Sodium ABG Chloride ABG Glucose Oxyhemoglobin Carboxyhemoglobin Sodium Potassium Chloride Carbon Dioxide BUN Creatinine Glucose POC Glucose 128 H 159 H 69 L Hemoglobin A1c Magnesium Ferritin AST ALT Alkaline Phosphatase Lactate Dehydrogenase C-Reactive Protein Total Protein Albumin Arterial Blood Glucose Coronavirus (PCR) 04/28/21 04/28/21 04/29/21 12:22 21:11 06:05 WBC MCV MCH MCHC RDW Lymph % (Auto) Andrews % (Auto) Eos % (Auto) Lymph # (Auto) Andrews # (Auto) Eos # (Auto) Baso # (Auto) Seg Neutrophils % Seg Neuts % (Manual) Lymphocytes % (Manual) Seg Neutrophils # Seg Neutrophils # Man Lymphocytes # (Manual) D-Dimer ABG pH POC ABG pCO2 POC ABG pO2 ABG pO2 ABG HCO3 ABG O2 Saturation ABG Base Excess ABG Oxyhemoglobin ABG Sodium ABG Chloride ABG Glucose Oxyhemoglobin Carboxyhemoglobin Sodium 132 L Potassium Chloride 94.4 L Carbon Dioxide BUN Creatinine 0.2 L D Glucose 140 H POC Glucose 141 H 171 H Hemoglobin A1c Magnesium Ferritin AST ALT Alkaline Phosphatase Lactate Dehydrogenase C-Reactive Protein Total Protein Albumin Arterial Blood Glucose Coronavirus (PCR) 04/29/21 04/29/21 04/29/21 06:05 07:24 11:36 WBC MCV MCH MCHC 35 H RDW 15.9 H Lymph % (Auto) Andrews % (Auto) Eos % (Auto) Lymph # (Auto) Andrews # (Auto) Eos # (Auto) Baso # (Auto) Seg Neutrophils % Seg Neuts % (Manual) Lymphocytes % (Manual) Seg Neutrophils # Seg Neutrophils # Man Lymphocytes # (Manual) D-Dimer ABG pH POC ABG pCO2 POC ABG pO2 ABG pO2 ABG HCO3 ABG O2 Saturation ABG Base Excess ABG Oxyhemoglobin ABG Sodium ABG Chloride ABG Glucose Oxyhemoglobin Carboxyhemoglobin Sodium Potassium Chloride Carbon Dioxide BUN Creatinine Glucose POC Glucose 141 H 220 H Hemoglobin A1c Magnesium Ferritin AST ALT Alkaline Phosphatase Lactate Dehydrogenase C-Reactive Protein Total Protein Albumin Arterial Blood Glucose Coronavirus (PCR) 04/29/21 04/29/21 04/29/21 14:23 15:30 17:06 WBC MCV MCH MCHC RDW Lymph % (Auto) Andrews % (Auto) Eos % (Auto) Lymph # (Auto) Andrews # (Auto) Eos # (Auto) Baso # (Auto) Seg Neutrophils % Seg Neuts % (Manual) Lymphocytes % (Manual) Seg Neutrophils # Seg Neutrophils # Man Lymphocytes # (Manual) D-Dimer ABG pH POC ABG pCO2 POC ABG pO2 ABG pO2 52.6 L ABG HCO3 ABG O2 Saturation 86.4 L ABG Base Excess ABG Oxyhemoglobin ABG Sodium ABG Chloride ABG Glucose Oxyhemoglobin 84.6 L Carboxyhemoglobin Sodium Potassium Chloride Carbon Dioxide BUN Creatinine Glucose POC Glucose 173 H 158 H Hemoglobin A1c Magnesium Ferritin AST ALT Alkaline Phosphatase Lactate Dehydrogenase C-Reactive Protein Total Protein Albumin Arterial Blood Glucose Coronavirus (PCR) 04/29/21 04/30/21 04/30/21 21:27 07:16 08:00 WBC MCV MCH MCHC RDW 16.1 H Lymph % (Auto) Andrews % (Auto) Eos % (Auto) Lymph # (Auto) Andrews # (Auto) Eos # (Auto) Baso # (Auto) Seg Neutrophils % Seg Neuts % (Manual) Lymphocytes % (Manual) Seg Neutrophils # Seg Neutrophils # Man Lymphocytes # (Manual) D-Dimer ABG pH POC ABG pCO2 POC ABG pO2 ABG pO2 ABG HCO3 ABG O2 Saturation ABG Base Excess ABG Oxyhemoglobin ABG Sodium ABG Chloride ABG Glucose Oxyhemoglobin Carboxyhemoglobin Sodium Potassium Chloride Carbon Dioxide BUN Creatinine Glucose POC Glucose 244 H 175 H Hemoglobin A1c Magnesium Ferritin AST ALT Alkaline Phosphatase Lactate Dehydrogenase C-Reactive Protein Total Protein Albumin Arterial Blood Glucose Coronavirus (PCR) 04/30/21 04/30/21 04/30/21 08:00 08:00 11:03 WBC MCV MCH MCHC RDW Lymph % (Auto) Andrews % (Auto) Eos % (Auto) Lymph # (Auto) Andrews # (Auto) Eos # (Auto) Baso # (Auto) Seg Neutrophils % Seg Neuts % (Manual) Lymphocytes % (Manual) Seg Neutrophils # Seg Neutrophils # Man Lymphocytes # (Manual) D-Dimer 1796.87 H ABG pH POC ABG pCO2 POC ABG pO2 ABG pO2 ABG HCO3 ABG O2 Saturation ABG Base Excess ABG Oxyhemoglobin ABG Sodium ABG Chloride ABG Glucose Oxyhemoglobin Carboxyhemoglobin Sodium 135 L Potassium Chloride 96.3 L Carbon Dioxide BUN Creatinine 0.2 L Glucose 153 H POC Glucose 183 H Hemoglobin A1c Magnesium Ferritin AST 41 H ALT 76 H Alkaline Phosphatase 160 H Lactate Dehydrogenase 522 H C-Reactive Protein Total Protein 6.1 L Albumin 3.1 L Arterial Blood Glucose Coronavirus (PCR) 04/30/21 04/30/21 05/01/21 17:04 22:17 05:39 WBC MCV MCH MCHC RDW Lymph % (Auto) Andrews % (Auto) Eos % (Auto) Lymph # (Auto) Andrews # (Auto) Eos # (Auto) Baso # (Auto) Seg Neutrophils % Seg Neuts % (Manual) Lymphocytes % (Manual) Seg Neutrophils # Seg Neutrophils # Man Lymphocytes # (Manual) D-Dimer ABG pH POC ABG pCO2 POC ABG pO2 ABG pO2 ABG HCO3 ABG O2 Saturation ABG Base Excess ABG Oxyhemoglobin ABG Sodium ABG Chloride ABG Glucose Oxyhemoglobin Carboxyhemoglobin Sodium 133 L Potassium Chloride 92.1 L Carbon Dioxide BUN 24 H Creatinine 0.4 L D Glucose 269 H POC Glucose 167 H 208 H Hemoglobin A1c Magnesium Ferritin AST ALT 66 H Alkaline Phosphatase 142 H Lactate Dehydrogenase C-Reactive Protein Total Protein Albumin 3.2 L Arterial Blood Glucose Coronavirus (PCR) 05/01/21 05/01/21 05/01/21 05:39 05:39 07:45 WBC MCV MCH MCHC RDW 16.0 H Lymph % (Auto) Andrews % (Auto) Eos % (Auto) Lymph # (Auto) Andrews # (Auto) Eos # (Auto) Baso # (Auto) Seg Neutrophils % Seg Neuts % (Manual) Lymphocytes % (Manual) Seg Neutrophils # Seg Neutrophils # Man Lymphocytes # (Manual) D-Dimer 3984.95 H ABG pH POC ABG pCO2 POC ABG pO2 ABG pO2 ABG HCO3 ABG O2 Saturation ABG Base Excess ABG Oxyhemoglobin ABG Sodium ABG Chloride ABG Glucose Oxyhemoglobin Carboxyhemoglobin Sodium Potassium Chloride Carbon Dioxide BUN Creatinine Glucose POC Glucose 229 H Hemoglobin A1c Magnesium Ferritin AST ALT Alkaline Phosphatase Lactate Dehydrogenase C-Reactive Protein Total Protein Albumin Arterial Blood Glucose Coronavirus (PCR) 05/01/21 05/01/21 05/01/21 12:10 15:46 21:06 WBC MCV MCH MCHC RDW Lymph % (Auto) Andrews % (Auto) Eos % (Auto) Lymph # (Auto) Andrews # (Auto) Eos # (Auto) Baso # (Auto) Seg Neutrophils % Seg Neuts % (Manual) Lymphocytes % (Manual) Seg Neutrophils # Seg Neutrophils # Man Lymphocytes # (Manual) D-Dimer ABG pH POC ABG pCO2 POC ABG pO2 ABG pO2 ABG HCO3 ABG O2 Saturation ABG Base Excess ABG Oxyhemoglobin ABG Sodium ABG Chloride ABG Glucose Oxyhemoglobin Carboxyhemoglobin Sodium Potassium Chloride Carbon Dioxide BUN Creatinine Glucose POC Glucose 296 H 279 H 232 H Hemoglobin A1c Magnesium Ferritin AST ALT Alkaline Phosphatase Lactate Dehydrogenase C-Reactive Protein Total Protein Albumin Arterial Blood Glucose Coronavirus (PCR) 05/02/21 05/02/21 05/02/21 04:55 04:55 04:55 WBC MCV MCH MCHC RDW 16.1 H Lymph % (Auto) Andrews % (Auto) Eos % (Auto) Lymph # (Auto) Andrews # (Auto) Eos # (Auto) Baso # (Auto) Seg Neutrophils % Seg Neuts % (Manual) Lymphocytes % (Manual) Seg Neutrophils # Seg Neutrophils # Man Lymphocytes # (Manual) D-Dimer 1401.08 H ABG pH POC ABG pCO2 POC ABG pO2 ABG pO2 ABG HCO3 ABG O2 Saturation ABG Base Excess ABG Oxyhemoglobin ABG Sodium ABG Chloride ABG Glucose Oxyhemoglobin Carboxyhemoglobin Sodium 131 L Potassium Chloride 95.5 L Carbon Dioxide BUN 20 H Creatinine 0.3 L Glucose 288 H POC Glucose Hemoglobin A1c Magnesium Ferritin AST ALT Alkaline Phosphatase Lactate Dehydrogenase C-Reactive Protein Total Protein 6.0 L Albumin 3.1 L Arterial Blood Glucose Coronavirus (PCR) 05/02/21 05/02/21 05/02/21 07:53 11:45 15:25 WBC MCV MCH MCHC RDW Lymph % (Auto) Andrews % (Auto) Eos % (Auto) Lymph # (Auto) Andrews # (Auto) Eos # (Auto) Baso # (Auto) Seg Neutrophils % Seg Neuts % (Manual) Lymphocytes % (Manual) Seg Neutrophils # Seg Neutrophils # Man Lymphocytes # (Manual) D-Dimer ABG pH POC ABG pCO2 POC ABG pO2 ABG pO2 ABG HCO3 ABG O2 Saturation ABG Base Excess ABG Oxyhemoglobin ABG Sodium ABG Chloride ABG Glucose Oxyhemoglobin Carboxyhemoglobin Sodium Potassium Chloride Carbon Dioxide BUN Creatinine Glucose POC Glucose 180 H 228 H 275 H Hemoglobin A1c Magnesium Ferritin AST ALT Alkaline Phosphatase Lactate Dehydrogenase C-Reactive Protein Total Protein Albumin Arterial Blood Glucose Coronavirus (PCR) 05/02/21 05/03/21 05/03/21 22:56 04:30 04:49 WBC MCV MCH MCHC RDW Lymph % (Auto) Andrews % (Auto) Eos % (Auto) Lymph # (Auto) Andrews # (Auto) Eos # (Auto) Baso # (Auto) Seg Neutrophils % Seg Neuts % (Manual) Lymphocytes % (Manual) Seg Neutrophils # Seg Neutrophils # Man Lymphocytes # (Manual) D-Dimer ABG pH 7.229 L POC ABG pCO2 POC ABG pO2 65.3 L ABG pO2 ABG HCO3 ABG O2 Saturation ABG Base Excess ABG Oxyhemoglobin 87.8 L ABG Sodium 133.0 L ABG Chloride 97.0 L ABG Glucose 403 H Oxyhemoglobin Carboxyhemoglobin Sodium 130 L Potassium Chloride 94.9 L Carbon Dioxide BUN 20 H Creatinine 0.5 L D Glucose 359 H POC Glucose 293 H Hemoglobin A1c Magnesium Ferritin AST 54 H ALT 75 H Alkaline Phosphatase 138 H Lactate Dehydrogenase C-Reactive Protein Total Protein Albumin 3.6 L Arterial Blood Glucose 403 H Coronavirus (PCR) 05/03/21 05/03/21 05/03/21 05:27 11:26 17:57 WBC MCV MCH MCHC RDW Lymph % (Auto) Andrews % (Auto) Eos % (Auto) Lymph # (Auto) Andrews # (Auto) Eos # (Auto) Baso # (Auto) Seg Neutrophils % Seg Neuts % (Manual) Lymphocytes % (Manual) Seg Neutrophils # Seg Neutrophils # Man Lymphocytes # (Manual) D-Dimer ABG pH POC ABG pCO2 POC ABG pO2 ABG pO2 ABG HCO3 ABG O2 Saturation ABG Base Excess ABG Oxyhemoglobin ABG Sodium ABG Chloride ABG Glucose Oxyhemoglobin Carboxyhemoglobin Sodium Potassium Chloride Carbon Dioxide BUN Creatinine Glucose POC Glucose 361 H 297 H 226 H Hemoglobin A1c Magnesium Ferritin AST ALT Alkaline Phosphatase Lactate Dehydrogenase C-Reactive Protein Total Protein Albumin Arterial Blood Glucose Coronavirus (PCR) 05/03/21 05/04/21 05/04/21 23:12 05:12 07:30 WBC MCV MCH MCHC RDW Lymph % (Auto) Andrews % (Auto) Eos % (Auto) Lymph # (Auto) Andrews # (Auto) Eos # (Auto) Baso # (Auto) Seg Neutrophils % Seg Neuts % (Manual) Lymphocytes % (Manual) Seg Neutrophils # Seg Neutrophils # Man Lymphocytes # (Manual) D-Dimer ABG pH POC ABG pCO2 POC ABG pO2 ABG pO2 ABG HCO3 ABG O2 Saturation ABG Base Excess ABG Oxyhemoglobin ABG Sodium ABG Chloride ABG Glucose Oxyhemoglobin Carboxyhemoglobin Sodium Potassium Chloride Carbon Dioxide BUN Creatinine Glucose POC Glucose 282 H 285 H 254 H Hemoglobin A1c Magnesium Ferritin AST ALT Alkaline Phosphatase Lactate Dehydrogenase C-Reactive Protein Total Protein Albumin Arterial Blood Glucose Coronavirus (PCR) 05/04/21 05/04/21 05/04/21 08:58 11:45 16:07 WBC MCV MCH MCHC RDW Lymph % (Auto) Andrews % (Auto) Eos % (Auto) Lymph # (Auto) Andrews # (Auto) Eos # (Auto) Baso # (Auto) Seg Neutrophils % Seg Neuts % (Manual) Lymphocytes % (Manual) Seg Neutrophils # Seg Neutrophils # Man Lymphocytes # (Manual) D-Dimer ABG pH POC ABG pCO2 POC ABG pO2 ABG pO2 ABG HCO3 ABG O2 Saturation ABG Base Excess ABG Oxyhemoglobin ABG Sodium ABG Chloride ABG Glucose Oxyhemoglobin Carboxyhemoglobin Sodium 134 L Potassium Chloride Carbon Dioxide BUN 20 H Creatinine 0.3 L Glucose 267 H POC Glucose 244 H 297 H Hemoglobin A1c Magnesium Ferritin AST ALT Alkaline Phosphatase Lactate Dehydrogenase C-Reactive Protein Total Protein 6.0 L Albumin 3.2 L Arterial Blood Glucose Coronavirus (PCR) 05/04/21 05/05/21 05/05/21 23:32 05:00 05:13 WBC MCV MCH MCHC RDW Lymph % (Auto) Andrews % (Auto) Eos % (Auto) Lymph # (Auto) Andrews # (Auto) Eos # (Auto) Baso # (Auto) Seg Neutrophils % Seg Neuts % (Manual) Lymphocytes % (Manual) Seg Neutrophils # Seg Neutrophils # Man Lymphocytes # (Manual) D-Dimer ABG pH POC ABG pCO2 POC ABG pO2 ABG pO2 ABG HCO3 ABG O2 Saturation ABG Base Excess ABG Oxyhemoglobin ABG Sodium ABG Chloride ABG Glucose Oxyhemoglobin Carboxyhemoglobin Sodium 132 L Potassium Chloride 96.4 L Carbon Dioxide BUN 22 H Creatinine 0.3 L Glucose 228 H POC Glucose 154 H 260 H Hemoglobin A1c Magnesium Ferritin AST ALT 67 H Alkaline Phosphatase Lactate Dehydrogenase C-Reactive Protein Total Protein 6.1 L Albumin 3.2 L Arterial Blood Glucose Coronavirus (PCR) 05/05/21 05/05/21 05/05/21 11:32 17:49 23:07 WBC MCV MCH MCHC RDW Lymph % (Auto) Andrews % (Auto) Eos % (Auto) Lymph # (Auto) Andrews # (Auto) Eos # (Auto) Baso # (Auto) Seg Neutrophils % Seg Neuts % (Manual) Lymphocytes % (Manual) Seg Neutrophils # Seg Neutrophils # Man Lymphocytes # (Manual) D-Dimer ABG pH POC ABG pCO2 POC ABG pO2 ABG pO2 ABG HCO3 ABG O2 Saturation ABG Base Excess ABG Oxyhemoglobin ABG Sodium ABG Chloride ABG Glucose Oxyhemoglobin Carboxyhemoglobin Sodium Potassium Chloride Carbon Dioxide BUN Creatinine Glucose POC Glucose 279 H 308 H 213 H Hemoglobin A1c Magnesium Ferritin AST ALT Alkaline Phosphatase Lactate Dehydrogenase C-Reactive Protein Total Protein Albumin Arterial Blood Glucose Coronavirus (PCR) 05/06/21 05/06/21 05/06/21 05:00 05:00 05:20 WBC MCV MCH MCHC RDW 16.8 H Lymph % (Auto) Andrews % (Auto) Eos % (Auto) Lymph # (Auto) Andrews # (Auto) Eos # (Auto) Baso # (Auto) Seg Neutrophils % Seg Neuts % (Manual) 99.0 H Lymphocytes % (Manual) Seg Neutrophils # Seg Neutrophils # Man 10.9 H Lymphocytes # (Manual) 0.0 L D-Dimer ABG pH POC ABG pCO2 POC ABG pO2 ABG pO2 ABG HCO3 ABG O2 Saturation ABG Base Excess ABG Oxyhemoglobin ABG Sodium ABG Chloride ABG Glucose Oxyhemoglobin Carboxyhemoglobin Sodium 133 L Potassium Chloride Carbon Dioxide BUN 21 H Creatinine 0.3 L Glucose 259 H POC Glucose 308 H Hemoglobin A1c Magnesium Ferritin AST ALT Alkaline Phosphatase Lactate Dehydrogenase C-Reactive Protein Total Protein Albumin 3.2 L Arterial Blood Glucose Coronavirus (PCR) 05/06/21 05/06/21 05/06/21 11:24 17:54 21:32 WBC MCV MCH MCHC RDW Lymph % (Auto) Andrews % (Auto) Eos % (Auto) Lymph # (Auto) Andrews # (Auto) Eos # (Auto) Baso # (Auto) Seg Neutrophils % Seg Neuts % (Manual) Lymphocytes % (Manual) Seg Neutrophils # Seg Neutrophils # Man Lymphocytes # (Manual) D-Dimer ABG pH POC ABG pCO2 POC ABG pO2 ABG pO2 ABG HCO3 ABG O2 Saturation ABG Base Excess ABG Oxyhemoglobin ABG Sodium ABG Chloride ABG Glucose Oxyhemoglobin Carboxyhemoglobin Sodium Potassium Chloride Carbon Dioxide BUN Creatinine Glucose POC Glucose 262 H 124 H 246 H Hemoglobin A1c Magnesium Ferritin AST ALT Alkaline Phosphatase Lactate Dehydrogenase C-Reactive Protein Total Protein Albumin Arterial Blood Glucose Coronavirus (PCR) 05/06/21 05/07/21 05/07/21 23:10 04:54 04:54 WBC MCV MCH MCHC RDW Lymph % (Auto) Andrews % (Auto) Eos % (Auto) Lymph # (Auto) Andrews # (Auto) Eos # (Auto) Baso # (Auto) Seg Neutrophils % Seg Neuts % (Manual) Lymphocytes % (Manual) Seg Neutrophils # Seg Neutrophils # Man Lymphocytes # (Manual) D-Dimer 1609.28 H ABG pH POC ABG pCO2 POC ABG pO2 ABG pO2 ABG HCO3 ABG O2 Saturation ABG Base Excess ABG Oxyhemoglobin ABG Sodium ABG Chloride ABG Glucose Oxyhemoglobin Carboxyhemoglobin Sodium 136 L Potassium Chloride Carbon Dioxide BUN 23 H Creatinine 0.3 L Glucose 110 H POC Glucose 249 H Hemoglobin A1c Magnesium Ferritin AST ALT Alkaline Phosphatase Lactate Dehydrogenase C-Reactive Protein Total Protein 6.2 L Albumin 3.0 L Arterial Blood Glucose Coronavirus (PCR) 05/07/21 05/07/21 05/07/21 04:54 04:54 11:41 WBC MCV MCH MCHC RDW Lymph % (Auto) Andrews % (Auto) Eos % (Auto) Lymph # (Auto) Andrews # (Auto) Eos # (Auto) Baso # (Auto) Seg Neutrophils % Seg Neuts % (Manual) Lymphocytes % (Manual) Seg Neutrophils # Seg Neutrophils # Man Lymphocytes # (Manual) D-Dimer ABG pH POC ABG pCO2 POC ABG pO2 ABG pO2 ABG HCO3 ABG O2 Saturation ABG Base Excess ABG Oxyhemoglobin ABG Sodium ABG Chloride ABG Glucose Oxyhemoglobin Carboxyhemoglobin Sodium Potassium Chloride Carbon Dioxide BUN Creatinine Glucose POC Glucose 118 H Hemoglobin A1c Magnesium Ferritin 296.1 H AST ALT Alkaline Phosphatase Lactate Dehydrogenase 724 H C-Reactive Protein Total Protein Albumin Arterial Blood Glucose Coronavirus (PCR) 05/07/21 05/07/21 05/08/21 16:43 22:34 06:44 WBC MCV MCH MCHC RDW Lymph % (Auto) Andrews % (Auto) Eos % (Auto) Lymph # (Auto) Andrews # (Auto) Eos # (Auto) Baso # (Auto) Seg Neutrophils % Seg Neuts % (Manual) Lymphocytes % (Manual) Seg Neutrophils # Seg Neutrophils # Man Lymphocytes # (Manual) D-Dimer ABG pH POC ABG pCO2 POC ABG pO2 ABG pO2 ABG HCO3 ABG O2 Saturation ABG Base Excess ABG Oxyhemoglobin ABG Sodium ABG Chloride ABG Glucose Oxyhemoglobin Carboxyhemoglobin Sodium Potassium Chloride Carbon Dioxide BUN Creatinine Glucose POC Glucose 159 H 233 H 235 H Hemoglobin A1c Magnesium Ferritin AST ALT Alkaline Phosphatase Lactate Dehydrogenase C-Reactive Protein Total Protein Albumin Arterial Blood Glucose Coronavirus (PCR) 05/08/21 05/08/21 05/08/21 07:49 11:56 17:13 WBC MCV MCH MCHC RDW Lymph % (Auto) Andrews % (Auto) Eos % (Auto) Lymph # (Auto) Andrews # (Auto) Eos # (Auto) Baso # (Auto) Seg Neutrophils % Seg Neuts % (Manual) Lymphocytes % (Manual) Seg Neutrophils # Seg Neutrophils # Man Lymphocytes # (Manual) D-Dimer ABG pH POC ABG pCO2 POC ABG pO2 ABG pO2 ABG HCO3 ABG O2 Saturation ABG Base Excess ABG Oxyhemoglobin ABG Sodium ABG Chloride ABG Glucose Oxyhemoglobin Carboxyhemoglobin Sodium Potassium Chloride Carbon Dioxide BUN Creatinine Glucose POC Glucose 219 H 184 H 182 H Hemoglobin A1c Magnesium Ferritin AST ALT Alkaline Phosphatase Lactate Dehydrogenase C-Reactive Protein Total Protein Albumin Arterial Blood Glucose Coronavirus (PCR) 05/08/21 05/09/21 05/09/21 23:35 05:20 05:20 WBC MCV MCH MCHC RDW Lymph % (Auto) Andrews % (Auto) Eos % (Auto) Lymph # (Auto) Andrews # (Auto) Eos # (Auto) Baso # (Auto) Seg Neutrophils % Seg Neuts % (Manual) Lymphocytes % (Manual) Seg Neutrophils # Seg Neutrophils # Man Lymphocytes # (Manual) D-Dimer 1003.87 H ABG pH POC ABG pCO2 POC ABG pO2 ABG pO2 ABG HCO3 ABG O2 Saturation ABG Base Excess ABG Oxyhemoglobin ABG Sodium ABG Chloride ABG Glucose Oxyhemoglobin Carboxyhemoglobin Sodium Potassium Chloride Carbon Dioxide BUN Creatinine Glucose POC Glucose 198 H Hemoglobin A1c Magnesium Ferritin 378.7 H AST ALT Alkaline Phosphatase Lactate Dehydrogenase C-Reactive Protein Total Protein Albumin Arterial Blood Glucose Coronavirus (PCR) 05/09/21 05/09/21 05/09/21 05:20 06:04 12:53 WBC MCV MCH MCHC RDW Lymph % (Auto) Andrews % (Auto) Eos % (Auto) Lymph # (Auto) Andrews # (Auto) Eos # (Auto) Baso # (Auto) Seg Neutrophils % Seg Neuts % (Manual) Lymphocytes % (Manual) Seg Neutrophils # Seg Neutrophils # Man Lymphocytes # (Manual) D-Dimer ABG pH POC ABG pCO2 POC ABG pO2 ABG pO2 ABG HCO3 ABG O2 Saturation ABG Base Excess ABG Oxyhemoglobin ABG Sodium ABG Chloride ABG Glucose Oxyhemoglobin Carboxyhemoglobin Sodium Potassium Chloride Carbon Dioxide BUN Creatinine Glucose POC Glucose 159 H 180 H Hemoglobin A1c Magnesium Ferritin AST ALT Alkaline Phosphatase Lactate Dehydrogenase 558 H C-Reactive Protein 2.40 H Total Protein Albumin Arterial Blood Glucose Coronavirus (PCR) 05/09/21 05/09/21 05/10/21 16:43 21:27 10:18 WBC MCV MCH MCHC RDW Lymph % (Auto) Andrews % (Auto) Eos % (Auto) Lymph # (Auto) Andrews # (Auto) Eos # (Auto) Baso # (Auto) Seg Neutrophils % Seg Neuts % (Manual) Lymphocytes % (Manual) Seg Neutrophils # Seg Neutrophils # Man Lymphocytes # (Manual) D-Dimer ABG pH POC ABG pCO2 POC ABG pO2 ABG pO2 ABG HCO3 ABG O2 Saturation ABG Base Excess ABG Oxyhemoglobin ABG Sodium ABG Chloride ABG Glucose Oxyhemoglobin Carboxyhemoglobin Sodium Potassium Chloride Carbon Dioxide BUN Creatinine Glucose POC Glucose 212 H 285 H 261 H Hemoglobin A1c Magnesium Ferritin AST ALT Alkaline Phosphatase Lactate Dehydrogenase C-Reactive Protein Total Protein Albumin Arterial Blood Glucose Coronavirus (PCR) 05/10/21 05/10/21 05/11/21 17:58 18:02 00:29 WBC MCV MCH MCHC RDW Lymph % (Auto) Andrews % (Auto) Eos % (Auto) Lymph # (Auto) Andrews # (Auto) Eos # (Auto) Baso # (Auto) Seg Neutrophils % Seg Neuts % (Manual) Lymphocytes % (Manual) Seg Neutrophils # Seg Neutrophils # Man Lymphocytes # (Manual) D-Dimer ABG pH POC ABG pCO2 POC ABG pO2 ABG pO2 ABG HCO3 ABG O2 Saturation ABG Base Excess ABG Oxyhemoglobin ABG Sodium ABG Chloride ABG Glucose Oxyhemoglobin Carboxyhemoglobin Sodium Potassium Chloride Carbon Dioxide BUN Creatinine Glucose POC Glucose 213 H 179 H 149 H Hemoglobin A1c Magnesium Ferritin AST ALT Alkaline Phosphatase Lactate Dehydrogenase C-Reactive Protein Total Protein Albumin Arterial Blood Glucose Coronavirus (PCR) 05/11/21 05/11/21 05/11/21 05:22 11:32 17:00 WBC 14.9 H MCV MCH MCHC RDW 18.9 H Lymph % (Auto) 4.9 L Andrews % (Auto) Eos % (Auto) Lymph # (Auto) 0.7 L Andrews # (Auto) Eos # (Auto) Baso # (Auto) 0.2 H Seg Neutrophils % Seg Neuts % (Manual) Lymphocytes % (Manual) Seg Neutrophils # 13.3 H Seg Neutrophils # Man Lymphocytes # (Manual) D-Dimer ABG pH POC ABG pCO2 POC ABG pO2 ABG pO2 ABG HCO3 ABG O2 Saturation ABG Base Excess ABG Oxyhemoglobin ABG Sodium ABG Chloride ABG Glucose Oxyhemoglobin Carboxyhemoglobin Sodium Potassium Chloride Carbon Dioxide BUN Creatinine Glucose POC Glucose 162 H 179 H Hemoglobin A1c Magnesium Ferritin AST ALT Alkaline Phosphatase Lactate Dehydrogenase C-Reactive Protein Total Protein Albumin Arterial Blood Glucose Coronavirus (PCR) 05/11/21 05/11/21 05/11/21 17:00 17:33 22:03 WBC MCV MCH MCHC RDW Lymph % (Auto) Andrews % (Auto) Eos % (Auto) Lymph # (Auto) Andrews # (Auto) Eos # (Auto) Baso # (Auto) Seg Neutrophils % Seg Neuts % (Manual) Lymphocytes % (Manual) Seg Neutrophils # Seg Neutrophils # Man Lymphocytes # (Manual) D-Dimer ABG pH POC ABG pCO2 POC ABG pO2 ABG pO2 ABG HCO3 ABG O2 Saturation ABG Base Excess ABG Oxyhemoglobin ABG Sodium ABG Chloride ABG Glucose Oxyhemoglobin Carboxyhemoglobin Sodium 135 L Potassium Chloride 97.3 L Carbon Dioxide BUN 21 H Creatinine 0.3 L Glucose 133 H POC Glucose 140 H 282 H Hemoglobin A1c Magnesium Ferritin AST ALT 60 H Alkaline Phosphatase Lactate Dehydrogenase C-Reactive Protein Total Protein Albumin 3.1 L Arterial Blood Glucose Coronavirus (PCR) 05/12/21 05/12/21 05/12/21 04:05 04:05 04:05 WBC MCV MCH MCHC RDW 18.4 H Lymph % (Auto) Andrews % (Auto) Eos % (Auto) Lymph # (Auto) Andrews # (Auto) Eos # (Auto) Baso # (Auto) Seg Neutrophils % Seg Neuts % (Manual) 94.0 H Lymphocytes % (Manual) 4.0 L Seg Neutrophils # Seg Neutrophils # Man Lymphocytes # (Manual) 0.3 L D-Dimer ABG pH POC ABG pCO2 POC ABG pO2 ABG pO2 ABG HCO3 ABG O2 Saturation ABG Base Excess ABG Oxyhemoglobin ABG Sodium ABG Chloride ABG Glucose Oxyhemoglobin Carboxyhemoglobin Sodium 136 L Potassium Chloride Carbon Dioxide BUN 18 H Creatinine 0.2 L Glucose 142 H POC Glucose Hemoglobin A1c Magnesium Ferritin 350.7 H AST ALT Alkaline Phosphatase Lactate Dehydrogenase 546 H C-Reactive Protein Total Protein 6.1 L Albumin 3.0 L Arterial Blood Glucose Coronavirus (PCR) 05/12/21 05/12/21 05/12/21 05:11 11:17 16:27 WBC MCV MCH MCHC RDW Lymph % (Auto) Andrews % (Auto) Eos % (Auto) Lymph # (Auto) Andrews # (Auto) Eos # (Auto) Baso # (Auto) Seg Neutrophils % Seg Neuts % (Manual) Lymphocytes % (Manual) Seg Neutrophils # Seg Neutrophils # Man Lymphocytes # (Manual) D-Dimer ABG pH POC ABG pCO2 POC ABG pO2 ABG pO2 ABG HCO3 ABG O2 Saturation ABG Base Excess ABG Oxyhemoglobin ABG Sodium ABG Chloride ABG Glucose Oxyhemoglobin Carboxyhemoglobin Sodium Potassium Chloride Carbon Dioxide BUN Creatinine Glucose POC Glucose 152 H 190 H 261 H Hemoglobin A1c Magnesium Ferritin AST ALT Alkaline Phosphatase Lactate Dehydrogenase C-Reactive Protein Total Protein Albumin Arterial Blood Glucose Coronavirus (PCR) 05/12/21 05/13/21 05/13/21 20:55 11:08 21:41 WBC MCV MCH MCHC RDW Lymph % (Auto) Andrews % (Auto) Eos % (Auto) Lymph # (Auto) Andrews # (Auto) Eos # (Auto) Baso # (Auto) Seg Neutrophils % Seg Neuts % (Manual) Lymphocytes % (Manual) Seg Neutrophils # Seg Neutrophils # Man Lymphocytes # (Manual) D-Dimer ABG pH POC ABG pCO2 POC ABG pO2 ABG pO2 ABG HCO3 ABG O2 Saturation ABG Base Excess ABG Oxyhemoglobin ABG Sodium ABG Chloride ABG Glucose Oxyhemoglobin Carboxyhemoglobin Sodium Potassium Chloride Carbon Dioxide BUN Creatinine Glucose POC Glucose 231 H 106 H 174 H Hemoglobin A1c Magnesium Ferritin AST ALT Alkaline Phosphatase Lactate Dehydrogenase C-Reactive Protein Total Protein Albumin Arterial Blood Glucose Coronavirus (PCR) 05/14/21 05/14/21 05/14/21 00:53 02:23 06:06 WBC MCV MCH MCHC RDW Lymph % (Auto) Andrews % (Auto) Eos % (Auto) Lymph # (Auto) Andrews # (Auto) Eos # (Auto) Baso # (Auto) Seg Neutrophils % Seg Neuts % (Manual) Lymphocytes % (Manual) Seg Neutrophils # Seg Neutrophils # Man Lymphocytes # (Manual) D-Dimer ABG pH POC ABG pCO2 POC ABG pO2 ABG pO2 130.3 H ABG HCO3 30.6 H ABG O2 Saturation ABG Base Excess 4.9 H ABG Oxyhemoglobin ABG Sodium ABG Chloride ABG Glucose Oxyhemoglobin Carboxyhemoglobin Sodium Potassium Chloride Carbon Dioxide BUN Creatinine Glucose POC Glucose 229 H 119 H Hemoglobin A1c Magnesium Ferritin AST ALT Alkaline Phosphatase Lactate Dehydrogenase C-Reactive Protein Total Protein Albumin Arterial Blood Glucose Coronavirus (PCR) 05/14/21 05/14/21 05/14/21 07:13 07:13 07:13 WBC MCV MCH MCHC RDW Lymph % (Auto) Andrews % (Auto) Eos % (Auto) Lymph # (Auto) Andrews # (Auto) Eos # (Auto) Baso # (Auto) Seg Neutrophils % Seg Neuts % (Manual) Lymphocytes % (Manual) Seg Neutrophils # Seg Neutrophils # Man Lymphocytes # (Manual) D-Dimer 712.80 H ABG pH POC ABG pCO2 POC ABG pO2 ABG pO2 ABG HCO3 ABG O2 Saturation ABG Base Excess ABG Oxyhemoglobin ABG Sodium ABG Chloride ABG Glucose Oxyhemoglobin Carboxyhemoglobin Sodium 133 L Potassium Chloride 95.5 L Carbon Dioxide 32 H BUN Creatinine 0.2 L Glucose 137 H POC Glucose Hemoglobin A1c Magnesium Ferritin 283.5 H AST ALT 63 H Alkaline Phosphatase Lactate Dehydrogenase 563 H C-Reactive Protein Total Protein 6.1 L Albumin 3.0 L Arterial Blood Glucose Coronavirus (PCR) 05/14/21 05/14/21 05/14/21 12:21 15:33 21:50 WBC MCV MCH MCHC RDW Lymph % (Auto) Andrews % (Auto) Eos % (Auto) Lymph # (Auto) Andrews # (Auto) Eos # (Auto) Baso # (Auto) Seg Neutrophils % Seg Neuts % (Manual) Lymphocytes % (Manual) Seg Neutrophils # Seg Neutrophils # Man Lymphocytes # (Manual) D-Dimer ABG pH POC ABG pCO2 POC ABG pO2 ABG pO2 ABG HCO3 ABG O2 Saturation ABG Base Excess ABG Oxyhemoglobin ABG Sodium ABG Chloride ABG Glucose Oxyhemoglobin Carboxyhemoglobin Sodium Potassium Chloride Carbon Dioxide BUN Creatinine Glucose POC Glucose 143 H 204 H 202 H Hemoglobin A1c Magnesium Ferritin AST ALT Alkaline Phosphatase Lactate Dehydrogenase C-Reactive Protein Total Protein Albumin Arterial Blood Glucose Coronavirus (PCR) 05/15/21 05/15/21 05/15/21 05:05 11:12 16:39 WBC MCV MCH MCHC RDW Lymph % (Auto) Andrews % (Auto) Eos % (Auto) Lymph # (Auto) Andrews # (Auto) Eos # (Auto) Baso # (Auto) Seg Neutrophils % Seg Neuts % (Manual) Lymphocytes % (Manual) Seg Neutrophils # Seg Neutrophils # Man Lymphocytes # (Manual) D-Dimer ABG pH POC ABG pCO2 POC ABG pO2 ABG pO2 ABG HCO3 ABG O2 Saturation ABG Base Excess ABG Oxyhemoglobin ABG Sodium ABG Chloride ABG Glucose Oxyhemoglobin Carboxyhemoglobin Sodium Potassium Chloride Carbon Dioxide BUN Creatinine Glucose POC Glucose 125 H 201 H 241 H Hemoglobin A1c Magnesium Ferritin AST ALT Alkaline Phosphatase Lactate Dehydrogenase C-Reactive Protein Total Protein Albumin Arterial Blood Glucose Coronavirus (PCR) 05/15/21 05/16/21 05/16/21 21:31 05:04 10:40 WBC MCV MCH MCHC RDW Lymph % (Auto) Andrews % (Auto) Eos % (Auto) Lymph # (Auto) Andrews # (Auto) Eos # (Auto) Baso # (Auto) Seg Neutrophils % Seg Neuts % (Manual) Lymphocytes % (Manual) Seg Neutrophils # Seg Neutrophils # Man Lymphocytes # (Manual) D-Dimer ABG pH POC ABG pCO2 POC ABG pO2 ABG pO2 ABG HCO3 ABG O2 Saturation ABG Base Excess ABG Oxyhemoglobin ABG Sodium ABG Chloride ABG Glucose Oxyhemoglobin Carboxyhemoglobin Sodium Potassium Chloride Carbon Dioxide BUN Creatinine Glucose POC Glucose 234 H 123 H 231 H Hemoglobin A1c Magnesium Ferritin AST ALT Alkaline Phosphatase Lactate Dehydrogenase C-Reactive Protein Total Protein Albumin Arterial Blood Glucose Coronavirus (PCR) 05/16/21 05/16/21 05/17/21 18:23 21:29 06:20 WBC MCV MCH MCHC RDW 18.8 H Lymph % (Auto) 10.2 L Andrews % (Auto) Eos % (Auto) Lymph # (Auto) 0.8 L Andrews # (Auto) Eos # (Auto) Baso # (Auto) Seg Neutrophils % 85.8 H Seg Neuts % (Manual) Lymphocytes % (Manual) Seg Neutrophils # Seg Neutrophils # Man Lymphocytes # (Manual) D-Dimer ABG pH POC ABG pCO2 POC ABG pO2 ABG pO2 ABG HCO3 ABG O2 Saturation ABG Base Excess ABG Oxyhemoglobin ABG Sodium ABG Chloride ABG Glucose Oxyhemoglobin Carboxyhemoglobin Sodium Potassium Chloride Carbon Dioxide BUN Creatinine Glucose POC Glucose 266 H 234 H Hemoglobin A1c Magnesium Ferritin AST ALT Alkaline Phosphatase Lactate Dehydrogenase C-Reactive Protein Total Protein Albumin Arterial Blood Glucose Coronavirus (PCR) 05/17/21 05/17/21 05/17/21 06:20 11:06 16:36 WBC MCV MCH MCHC RDW Lymph % (Auto) Andrews % (Auto) Eos % (Auto) Lymph # (Auto) Andrews # (Auto) Eos # (Auto) Baso # (Auto) Seg Neutrophils % Seg Neuts % (Manual) Lymphocytes % (Manual) Seg Neutrophils # Seg Neutrophils # Man Lymphocytes # (Manual) D-Dimer ABG pH POC ABG pCO2 POC ABG pO2 ABG pO2 ABG HCO3 ABG O2 Saturation ABG Base Excess ABG Oxyhemoglobin ABG Sodium ABG Chloride ABG Glucose Oxyhemoglobin Carboxyhemoglobin Sodium Potassium Chloride Carbon Dioxide 33 H BUN Creatinine 0.2 L Glucose 101 H POC Glucose 209 H 180 H Hemoglobin A1c Magnesium Ferritin AST ALT Alkaline Phosphatase Lactate Dehydrogenase C-Reactive Protein Total Protein Albumin Arterial Blood Glucose Coronavirus (PCR) 05/17/21 05/18/21 05/18/21 21:06 12:00 15:06 WBC MCV MCH MCHC RDW Lymph % (Auto) Andrews % (Auto) Eos % (Auto) Lymph # (Auto) Andrews # (Auto) Eos # (Auto) Baso # (Auto) Seg Neutrophils % Seg Neuts % (Manual) Lymphocytes % (Manual) Seg Neutrophils # Seg Neutrophils # Man Lymphocytes # (Manual) D-Dimer 874.02 H ABG pH POC ABG pCO2 POC ABG pO2 ABG pO2 ABG HCO3 ABG O2 Saturation ABG Base Excess ABG Oxyhemoglobin ABG Sodium ABG Chloride ABG Glucose Oxyhemoglobin Carboxyhemoglobin Sodium Potassium Chloride Carbon Dioxide BUN Creatinine Glucose POC Glucose 256 H 139 H Hemoglobin A1c Magnesium Ferritin AST ALT Alkaline Phosphatase Lactate Dehydrogenase C-Reactive Protein Total Protein Albumin Arterial Blood Glucose Coronavirus (PCR) 05/18/21 05/18/2105/18/21 15:06 15:06 16:08 WBC MCV MCH MCHC RDW Lymph % (Auto) Andrews % (Auto) Eos % (Auto) Lymph # (Auto) Andrews # (Auto) Eos # (Auto) Baso # (Auto) Seg Neutrophils % Seg Neuts % (Manual) Lymphocytes % (Manual) Seg Neutrophils # Seg Neutrophils # Man Lymphocytes # (Manual) D-Dimer ABG pH POC ABG pCO2 POC ABG pO2 ABG pO2 ABG HCO3 ABG O2 Saturation ABG Base Excess ABG Oxyhemoglobin ABG Sodium ABG Chloride ABG Glucose Oxyhemoglobin Carboxyhemoglobin Sodium Potassium Chloride Carbon Dioxide BUN Creatinine Glucose POC Glucose 178 H Hemoglobin A1c Magnesium Ferritin 289.6 H AST ALT Alkaline Phosphatase Lactate Dehydrogenase 605 H C-Reactive Protein Total Protein Albumin Arterial Blood Glucose Coronavirus (PCR) 05/18/21 05/19/21 05/19/21 21:22 11:57 15:26 WBC MCV MCH MCHC RDW Lymph % (Auto) Andrews % (Auto) Eos % (Auto) Lymph # (Auto) Andrews # (Auto) Eos # (Auto) Baso # (Auto) Seg Neutrophils % Seg Neuts % (Manual) Lymphocytes % (Manual) Seg Neutrophils # Seg Neutrophils # Man Lymphocytes # (Manual) D-Dimer ABG pH POC ABG pCO2 POC ABG pO2 ABG pO2 ABG HCO3 ABG O2 Saturation ABG Base Excess ABG Oxyhemoglobin ABG Sodium ABG Chloride ABG Glucose Oxyhemoglobin Carboxyhemoglobin Sodium Potassium Chloride Carbon Dioxide BUN Creatinine Glucose POC Glucose 241 H 201 H 209 H Hemoglobin A1c Magnesium Ferritin AST ALT Alkaline Phosphatase Lactate Dehydrogenase C-Reactive Protein Total Protein Albumin Arterial Blood Glucose Coronavirus (PCR) 05/19/21 05/20/21 05/20/21 20:59 07:38 08:01 WBC MCV MCH MCHC RDW 19.7 H Lymph % (Auto) 8.3 L Andrews % (Auto) Eos % (Auto) Lymph # (Auto) 0.8 L Andrews # (Auto) Eos # (Auto) Baso # (Auto) Seg Neutrophils % 88.6 H Seg Neuts % (Manual) Lymphocytes % (Manual) Seg Neutrophils # 8.4 H Seg Neutrophils # Man Lymphocytes # (Manual) D-Dimer ABG pH POC ABG pCO2 POC ABG pO2 ABG pO2 ABG HCO3 ABG O2 Saturation ABG Base Excess ABG Oxyhemoglobin ABG Sodium ABG Chloride ABG Glucose Oxyhemoglobin Carboxyhemoglobin Sodium Potassium Chloride Carbon Dioxide BUN Creatinine Glucose POC Glucose 226 H 130 H Hemoglobin A1c Magnesium Ferritin AST ALT Alkaline Phosphatase Lactate Dehydrogenase C-Reactive Protein Total Protein Albumin Arterial Blood Glucose Coronavirus (PCR) 05/20/21 05/20/21 05/20/21 08:01 11:00 16:43 WBC MCV MCH MCHC RDW Lymph % (Auto) Andrews % (Auto) Eos % (Auto) Lymph # (Auto) Andrews # (Auto) Eos # (Auto) Baso # (Auto) Seg Neutrophils % Seg Neuts % (Manual) Lymphocytes % (Manual) Seg Neutrophils # Seg Neutrophils # Man Lymphocytes # (Manual) D-Dimer ABG pH POC ABG pCO2 POC ABG pO2 ABG pO2 ABG HCO3 ABG O2 Saturation ABG Base Excess ABG Oxyhemoglobin ABG Sodium ABG Chloride ABG Glucose Oxyhemoglobin Carboxyhemoglobin Sodium Potassium Chloride Carbon Dioxide BUN 18 H Creatinine 0.2 L Glucose 132 H POC Glucose 237 H 240 H Hemoglobin A1c Magnesium Ferritin AST ALT Alkaline Phosphatase Lactate Dehydrogenase C-Reactive Protein Total Protein Albumin Arterial Blood Glucose Coronavirus (PCR) 05/20/21 05/21/21 05/21/21 21:21 07:35 11:32 WBC MCV MCH MCHC RDW Lymph % (Auto) Andrews % (Auto) Eos % (Auto) Lymph # (Auto) Andrews # (Auto) Eos # (Auto) Baso # (Auto) Seg Neutrophils % Seg Neuts % (Manual) Lymphocytes % (Manual) Seg Neutrophils # Seg Neutrophils # Man Lymphocytes # (Manual) D-Dimer ABG pH POC ABG pCO2 POC ABG pO2 ABG pO2 ABG HCO3 ABG O2 Saturation ABG Base Excess ABG Oxyhemoglobin ABG Sodium ABG Chloride ABG Glucose Oxyhemoglobin Carboxyhemoglobin Sodium Potassium Chloride Carbon Dioxide BUN Creatinine Glucose POC Glucose 241 H 162 H 171 H Hemoglobin A1c Magnesium Ferritin AST ALT Alkaline Phosphatase Lactate Dehydrogenase C-Reactive Protein Total Protein Albumin Arterial Blood Glucose Coronavirus (PCR) 05/21/21 05/21/21 05/22/21 16:22 20:43 05:14 WBC MCV MCH MCHC RDW Lymph % (Auto) Andrews % (Auto) Eos % (Auto) Lymph # (Auto) Andrews # (Auto) Eos # (Auto) Baso # (Auto) Seg Neutrophils % Seg Neuts % (Manual) Lymphocytes % (Manual) Seg Neutrophils # Seg Neutrophils # Man Lymphocytes # (Manual) D-Dimer ABG pH POC ABG pCO2 POC ABG pO2 ABG pO2 ABG HCO3 ABG O2 Saturation ABG Base Excess ABG Oxyhemoglobin ABG Sodium ABG Chloride ABG Glucose Oxyhemoglobin Carboxyhemoglobin Sodium Potassium Chloride Carbon Dioxide BUN Creatinine Glucose POC Glucose 244 H 299 H 140 H Hemoglobin A1c Magnesium Ferritin AST ALT Alkaline Phosphatase Lactate Dehydrogenase C-Reactive Protein Total Protein Albumin Arterial Blood Glucose Coronavirus (PCR) 05/22/21 05/22/21 05/22/21 08:45 11:54 16:15 WBC MCV MCH MCHC RDW Lymph % (Auto) Andrews % (Auto) Eos % (Auto) Lymph # (Auto) Andrews # (Auto) Eos # (Auto) Baso # (Auto) Seg Neutrophils % Seg Neuts % (Manual) Lymphocytes % (Manual) Seg Neutrophils # Seg Neutrophils # Man Lymphocytes # (Manual) D-Dimer ABG pH POC ABG pCO2 POC ABG pO2 ABG pO2 ABG HCO3 ABG O2 Saturation ABG Base Excess ABG Oxyhemoglobin ABG Sodium ABG Chloride ABG Glucose Oxyhemoglobin Carboxyhemoglobin Sodium Potassium Chloride Carbon Dioxide BUN Creatinine Glucose POC Glucose 133 H 265 H 221 H Hemoglobin A1c Magnesium Ferritin AST ALT Alkaline Phosphatase Lactate Dehydrogenase C-Reactive Protein Total Protein Albumin Arterial Blood Glucose Coronavirus (PCR) 05/22/21 05/23/21 05/23/21 21:43 08:20 09:50 WBC MCV MCH MCHC RDW Lymph % (Auto) Andrews % (Auto) Eos % (Auto) Lymph # (Auto) Andrews # (Auto) Eos # (Auto) Baso # (Auto) Seg Neutrophils % Seg Neuts % (Manual) Lymphocytes % (Manual) Seg Neutrophils # Seg Neutrophils # Man Lymphocytes # (Manual) D-Dimer 910.38 H ABG pH POC ABG pCO2 POC ABG pO2 ABG pO2 ABG HCO3 ABG O2 Saturation ABG Base Excess ABG Oxyhemoglobin ABG Sodium ABG Chloride ABG Glucose Oxyhemoglobin Carboxyhemoglobin Sodium Potassium Chloride Carbon Dioxide BUN Creatinine Glucose POC Glucose 262 H 140 H Hemoglobin A1c Magnesium Ferritin AST ALT Alkaline Phosphatase Lactate Dehydrogenase C-Reactive Protein Total Protein Albumin Arterial Blood Glucose Coronavirus (PCR) 05/23/21 05/23/21 05/23/21 09:50 09:50 10:52 WBC MCV MCH MCHC RDW Lymph % (Auto) Andrews % (Auto) Eos % (Auto) Lymph # (Auto) Andrews # (Auto) Eos # (Auto) Baso # (Auto) Seg Neutrophils % Seg Neuts % (Manual) Lymphocytes % (Manual) Seg Neutrophils # Seg Neutrophils # Man Lymphocytes # (Manual) D-Dimer ABG pH POC ABG pCO2 POC ABG pO2 ABG pO2 ABG HCO3 ABG O2 Saturation ABG Base Excess ABG Oxyhemoglobin ABG Sodium ABG Chloride ABG Glucose Oxyhemoglobin Carboxyhemoglobin Sodium Potassium Chloride Carbon Dioxide BUN Creatinine Glucose POC Glucose 241 H Hemoglobin A1c Magnesium Ferritin 244.9 H AST ALT Alkaline Phosphatase Lactate Dehydrogenase 584 H C-Reactive Protein Total Protein Albumin Arterial Blood Glucose Coronavirus (PCR) 05/23/21 05/23/21 05/24/21 17:24 21:52 07:44 WBC MCV MCH MCHC RDW Lymph % (Auto) Andrews % (Auto) Eos % (Auto) Lymph # (Auto) Andrews # (Auto) Eos # (Auto) Baso # (Auto) Seg Neutrophils % Seg Neuts % (Manual) Lymphocytes % (Manual) Seg Neutrophils # Seg Neutrophils # Man Lymphocytes # (Manual) D-Dimer ABG pH POC ABG pCO2 POC ABG pO2 ABG pO2 ABG HCO3 ABG O2 Saturation ABG Base Excess ABG Oxyhemoglobin ABG Sodium ABG Chloride ABG Glucose Oxyhemoglobin Carboxyhemoglobin Sodium Potassium Chloride Carbon Dioxide BUN Creatinine Glucose POC Glucose 197 H 289 H 161 H Hemoglobin A1c Magnesium Ferritin AST ALT Alkaline Phosphatase Lactate Dehydrogenase C-Reactive Protein Total Protein Albumin Arterial Blood Glucose Coronavirus (PCR) 05/24/21 05/24/21 05/24/21 11:17 17:51 21:26 WBC MCV MCH MCHC RDW Lymph % (Auto) Andrews % (Auto) Eos % (Auto) Lymph # (Auto) Andrews # (Auto) Eos # (Auto) Baso # (Auto) Seg Neutrophils % Seg Neuts % (Manual) Lymphocytes % (Manual) Seg Neutrophils # Seg Neutrophils # Man Lymphocytes # (Manual) D-Dimer ABG pH POC ABG pCO2 POC ABG pO2 ABG pO2 ABG HCO3 ABG O2 Saturation ABG Base Excess ABG Oxyhemoglobin ABG Sodium ABG Chloride ABG Glucose Oxyhemoglobin Carboxyhemoglobin Sodium Potassium Chloride Carbon Dioxide BUN Creatinine Glucose POC Glucose 308 H 175 H 198 H Hemoglobin A1c Magnesium Ferritin AST ALT Alkaline Phosphatase Lactate Dehydrogenase C-Reactive Protein Total Protein Albumin Arterial Blood Glucose Coronavirus (PCR) 05/25/21 05/25/21 05/25/21 08:14 11:13 17:13 WBC MCV MCH MCHC RDW Lymph % (Auto) Andrews % (Auto) Eos % (Auto) Lymph # (Auto) Andrews # (Auto) Eos # (Auto) Baso # (Auto) Seg Neutrophils % Seg Neuts % (Manual) Lymphocytes % (Manual) Seg Neutrophils # Seg Neutrophils # Man Lymphocytes # (Manual) D-Dimer ABG pH POC ABG pCO2 POC ABG pO2 ABG pO2 ABG HCO3 ABG O2 Saturation ABG Base Excess ABG Oxyhemoglobin ABG Sodium ABG Chloride ABG Glucose Oxyhemoglobin Carboxyhemoglobin Sodium Potassium Chloride Carbon Dioxide BUN Creatinine Glucose POC Glucose 203 H 339 H 235 H Hemoglobin A1c Magnesium Ferritin AST ALT Alkaline Phosphatase Lactate Dehydrogenase C-Reactive Protein Total Protein Albumin Arterial Blood Glucose Coronavirus (PCR) 05/25/21 05/26/21 05/26/21 21:03 07:33 11:19 WBC MCV MCH MCHC RDW Lymph % (Auto) Andrews % (Auto) Eos % (Auto) Lymph # (Auto) Andrews # (Auto) Eos # (Auto) Baso # (Auto) Seg Neutrophils % Seg Neuts % (Manual) Lymphocytes % (Manual) Seg Neutrophils # Seg Neutrophils # Man Lymphocytes # (Manual) D-Dimer ABG pH POC ABG pCO2 POC ABG pO2 ABG pO2 ABG HCO3 ABG O2 Saturation ABG Base Excess ABG Oxyhemoglobin ABG Sodium ABG Chloride ABG Glucose Oxyhemoglobin Carboxyhemoglobin Sodium Potassium Chloride Carbon Dioxide BUN Creatinine Glucose POC Glucose 263 H 156 H 288 H Hemoglobin A1c Magnesium Ferritin AST ALT Alkaline Phosphatase Lactate Dehydrogenase C-Reactive Protein Total Protein Albumin Arterial Blood Glucose Coronavirus (PCR) 05/26/21 05/26/21 05/27/21 16:26 20:55 07:38 WBC MCV MCH MCHC RDW Lymph % (Auto) Andrews % (Auto) Eos % (Auto) Lymph # (Auto) Andrews # (Auto) Eos # (Auto) Baso # (Auto) Seg Neutrophils % Seg Neuts % (Manual) Lymphocytes % (Manual) Seg Neutrophils # Seg Neutrophils # Man Lymphocytes # (Manual) D-Dimer ABG pH POC ABG pCO2 POC ABG pO2 ABG pO2 ABG HCO3 ABG O2 Saturation ABG Base Excess ABG Oxyhemoglobin ABG Sodium ABG Chloride ABG Glucose Oxyhemoglobin Carboxyhemoglobin Sodium Potassium Chloride Carbon Dioxide BUN Creatinine Glucose POC Glucose 286 H 293 H 115 H Hemoglobin A1c Magnesium Ferritin AST ALT Alkaline Phosphatase Lactate Dehydrogenase C-Reactive Protein Total Protein Albumin Arterial Blood Glucose Coronavirus (PCR) 05/27/21 05/27/21 05/27/21 11:46 15:58 21:02 WBC MCV MCH MCHC RDW Lymph % (Auto) Andrews % (Auto) Eos % (Auto) Lymph # (Auto) Andrews # (Auto) Eos # (Auto) Baso # (Auto) Seg Neutrophils % Seg Neuts % (Manual) Lymphocytes % (Manual) Seg Neutrophils # Seg Neutrophils # Man Lymphocytes # (Manual) D-Dimer ABG pH POC ABG pCO2 POC ABG pO2 ABG pO2 ABG HCO3 ABG O2 Saturation ABG Base Excess ABG Oxyhemoglobin ABG Sodium ABG Chloride ABG Glucose Oxyhemoglobin Carboxyhemoglobin Sodium Potassium Chloride Carbon Dioxide BUN Creatinine Glucose POC Glucose 260 H 318 H 246 H Hemoglobin A1c Magnesium Ferritin AST ALT Alkaline Phosphatase Lactate Dehydrogenase C-Reactive Protein Total Protein Albumin Arterial Blood Glucose Coronavirus (PCR) 05/28/21 05/28/21 05/28/21 07:34 11:31 16:36 WBC MCV MCH MCHC RDW Lymph % (Auto) Andrews % (Auto) Eos % (Auto) Lymph # (Auto) Andrews # (Auto) Eos # (Auto) Baso # (Auto) Seg Neutrophils % Seg Neuts % (Manual) Lymphocytes % (Manual) Seg Neutrophils # Seg Neutrophils # Man Lymphocytes # (Manual) D-Dimer ABG pH POC ABG pCO2 POC ABG pO2 ABG pO2 ABG HCO3 ABG O2 Saturation ABG Base Excess ABG Oxyhemoglobin ABG Sodium ABG Chloride ABG Glucose Oxyhemoglobin Carboxyhemoglobin Sodium Potassium Chloride Carbon Dioxide BUN Creatinine Glucose POC Glucose 185 H 297 H 183 H Hemoglobin A1c Magnesium Ferritin AST ALT Alkaline Phosphatase Lactate Dehydrogenase C-Reactive Protein Total Protein Albumin Arterial Blood Glucose Coronavirus (PCR) 05/28/21 05/29/21 05/29/21 21:19 07:34 11:19 WBC MCV MCH MCHC RDW Lymph % (Auto) Andrews % (Auto) Eos % (Auto) Lymph # (Auto) Andrews # (Auto) Eos # (Auto) Baso # (Auto) Seg Neutrophils % Seg Neuts % (Manual) Lymphocytes % (Manual) Seg Neutrophils # Seg Neutrophils # Man Lymphocytes # (Manual) D-Dimer ABG pH POC ABG pCO2 POC ABG pO2 ABG pO2 ABG HCO3 ABG O2 Saturation ABG Base Excess ABG Oxyhemoglobin ABG Sodium ABG Chloride ABG Glucose Oxyhemoglobin Carboxyhemoglobin Sodium Potassium Chloride Carbon Dioxide BUN Creatinine Glucose POC Glucose 274 H 139 H 293 H Hemoglobin A1c Magnesium Ferritin AST ALT Alkaline Phosphatase Lactate Dehydrogenase C-Reactive Protein Total Protein Albumin Arterial Blood Glucose Coronavirus (PCR) 05/29/21 05/29/21 05/30/21 16:36 22:44 05:55 WBC MCV MCH MCHC RDW 21.3 H Lymph % (Auto) 8.0 L Andrews % (Auto) Eos % (Auto) Lymph # (Auto) 0.6 L Andrews # (Auto) Eos # (Auto) Baso # (Auto) Seg Neutrophils % 88.6 H Seg Neuts % (Manual) Lymphocytes % (Manual) Seg Neutrophils # Seg Neutrophils # Man Lymphocytes # (Manual) D-Dimer ABG pH POC ABG pCO2 POC ABG pO2 ABG pO2 ABG HCO3 ABG O2 Saturation ABG Base Excess ABG Oxyhemoglobin ABG Sodium ABG Chloride ABG Glucose Oxyhemoglobin Carboxyhemoglobin Sodium Potassium Chloride Carbon Dioxide BUN Creatinine Glucose POC Glucose 299 H 160 H Hemoglobin A1c Magnesium Ferritin AST ALT Alkaline Phosphatase Lactate Dehydrogenase C-Reactive Protein Total Protein Albumin Arterial Blood Glucose Coronavirus (PCR) 05/30/21 05/30/21 05/30/21 05:55 08:04 11:13 WBC MCV MCH MCHC RDW Lymph % (Auto) Andrews % (Auto) Eos % (Auto) Lymph # (Auto) Andrews # (Auto) Eos # (Auto) Baso # (Auto) Seg Neutrophils % Seg Neuts % (Manual) Lymphocytes % (Manual) Seg Neutrophils # Seg Neutrophils # Man Lymphocytes # (Manual) D-Dimer ABG pH POC ABG pCO2 POC ABG pO2 ABG pO2 ABG HCO3 ABG O2 Saturation ABG Base Excess ABG Oxyhemoglobin ABG Sodium ABG Chloride ABG Glucose Oxyhemoglobin Carboxyhemoglobin Sodium Potassium Chloride Carbon Dioxide BUN 19 H Creatinine 0.2 L Glucose 209 H POC Glucose 157 H 275 H Hemoglobin A1c Magnesium Ferritin AST ALT Alkaline Phosphatase Lactate Dehydrogenase C-Reactive Protein Total Protein Albumin Arterial Blood Glucose Coronavirus (PCR) 05/30/21 05/30/21 05/31/21 17:08 22:12 07:36 WBC MCV MCH MCHC RDW Lymph % (Auto) Andrews % (Auto) Eos % (Auto) Lymph # (Auto) Andrews # (Auto) Eos # (Auto) Baso # (Auto) Seg Neutrophils % Seg Neuts % (Manual) Lymphocytes % (Manual) Seg Neutrophils # Seg Neutrophils # Man Lymphocytes # (Manual) D-Dimer ABG pH POC ABG pCO2 POC ABG pO2 ABG pO2 ABG HCO3 ABG O2 Saturation ABG Base Excess ABG Oxyhemoglobin ABG Sodium ABG Chloride ABG Glucose Oxyhemoglobin Carboxyhemoglobin Sodium Potassium Chloride Carbon Dioxide BUN Creatinine Glucose POC Glucose 154 H 275 H 138 H Hemoglobin A1c Magnesium Ferritin AST ALT Alkaline Phosphatase Lactate Dehydrogenase C-Reactive Protein Total Protein Albumin Arterial Blood Glucose Coronavirus (PCR) 05/31/21 05/31/21 05/31/21 11:17 16:55 21:25 WBC MCV MCH MCHC RDW Lymph % (Auto) Andrews % (Auto) Eos % (Auto) Lymph # (Auto) Andrews # (Auto) Eos # (Auto) Baso # (Auto) Seg Neutrophils % Seg Neuts % (Manual) Lymphocytes % (Manual) Seg Neutrophils # Seg Neutrophils # Man Lymphocytes # (Manual) D-Dimer ABG pH POC ABG pCO2 POC ABG pO2 ABG pO2 ABG HCO3 ABG O2 Saturation ABG Base Excess ABG Oxyhemoglobin ABG Sodium ABG Chloride ABG Glucose Oxyhemoglobin Carboxyhemoglobin Sodium Potassium Chloride Carbon Dioxide BUN Creatinine Glucose POC Glucose 258 H 215 H 318 H Hemoglobin A1c Magnesium Ferritin AST ALT Alkaline Phosphatase Lactate Dehydrogenase C-Reactive Protein Total Protein Albumin Arterial Blood Glucose Coronavirus (PCR) 06/01/21 06/01/21 06/01/21 07:23 11:38 16:52 WBC MCV MCH MCHC RDW Lymph % (Auto) Andrews % (Auto) Eos % (Auto) Lymph # (Auto) Andrews # (Auto) Eos # (Auto) Baso # (Auto) Seg Neutrophils % Seg Neuts % (Manual) Lymphocytes % (Manual) Seg Neutrophils # Seg Neutrophils # Man Lymphocytes # (Manual) D-Dimer ABG pH POC ABG pCO2 POC ABG pO2 ABG pO2 ABG HCO3 ABG O2 Saturation ABG Base Excess ABG Oxyhemoglobin ABG Sodium ABG Chloride ABG Glucose Oxyhemoglobin Carboxyhemoglobin Sodium Potassium Chloride Carbon Dioxide BUN Creatinine Glucose POC Glucose 157 H 259 H 150 H Hemoglobin A1c Magnesium Ferritin AST ALT Alkaline Phosphatase Lactate Dehydrogenase C-Reactive Protein Total Protein Albumin Arterial Blood Glucose Coronavirus (PCR) 06/01/21 06/02/21 06/02/21 23:16 05:34 05:34 WBC MCV MCH MCHC RDW 21.3 H Lymph % (Auto) 9.6 L Andrews % (Auto) Eos % (Auto) Lymph # (Auto) 0.6 L Andrews # (Auto) Eos # (Auto) Baso # (Auto) Seg Neutrophils % 86.2 H Seg Neuts % (Manual) Lymphocytes % (Manual) Seg Neutrophils # Seg Neutrophils # Man Lymphocytes # (Manual) D-Dimer ABG pH POC ABG pCO2 POC ABG pO2 ABG pO2 ABG HCO3 ABG O2 Saturation ABG Base Excess ABG Oxyhemoglobin ABG Sodium ABG Chloride ABG Glucose Oxyhemoglobin Carboxyhemoglobin Sodium 136 L Potassium Chloride Carbon Dioxide BUN Creatinine 0.2 L Glucose 186 H POC Glucose 247 H Hemoglobin A1c Magnesium Ferritin AST ALT 69 H Alkaline Phosphatase Lactate Dehydrogenase C-Reactive Protein Total Protein 6.1 L Albumin 3.2 L Arterial Blood Glucose Coronavirus (PCR) 06/02/21 06/02/21 06/02/21 11:25 18:23 21:32 WBC MCV MCH MCHC RDW Lymph % (Auto) Andrews % (Auto) Eos % (Auto) Lymph # (Auto) Andrews # (Auto) Eos # (Auto) Baso # (Auto) Seg Neutrophils % Seg Neuts % (Manual) Lymphocytes % (Manual) Seg Neutrophils # Seg Neutrophils # Man Lymphocytes # (Manual) D-Dimer ABG pH POC ABG pCO2 POC ABG pO2 ABG pO2 ABG HCO3 ABG O2 Saturation ABG Base Excess ABG Oxyhemoglobin ABG Sodium ABG Chloride ABG Glucose Oxyhemoglobin Carboxyhemoglobin Sodium Potassium Chloride Carbon Dioxide BUN Creatinine Glucose POC Glucose 157 H 299 H 246 H Hemoglobin A1c Magnesium Ferritin AST ALT Alkaline Phosphatase Lactate Dehydrogenase C-Reactive Protein Total Protein Albumin Arterial Blood Glucose Coronavirus (PCR) 06/03/21 06/03/21 06/03/21 08:12 12:21 17:31 WBC MCV MCH MCHC RDW Lymph % (Auto) Andrews % (Auto) Eos % (Auto) Lymph # (Auto) Andrews # (Auto) Eos # (Auto) Baso # (Auto) Seg Neutrophils % Seg Neuts % (Manual) Lymphocytes % (Manual) Seg Neutrophils # Seg Neutrophils # Man Lymphocytes # (Manual) D-Dimer ABG pH POC ABG pCO2 POC ABG pO2 ABG pO2 ABG HCO3 ABG O2 Saturation ABG Base Excess ABG Oxyhemoglobin ABG Sodium ABG Chloride ABG Glucose Oxyhemoglobin Carboxyhemoglobin Sodium Potassium Chloride Carbon Dioxide BUN Creatinine Glucose POC Glucose 153 H 302 H 252 H Hemoglobin A1c Magnesium Ferritin AST ALT Alkaline Phosphatase Lactate Dehydrogenase C-Reactive Protein Total Protein Albumin Arterial Blood Glucose Coronavirus (PCR) 06/03/21 06/04/21 06/04/21 22:08 11:12 16:01 WBC MCV MCH MCHC RDW Lymph % (Auto) Andrews % (Auto) Eos % (Auto) Lymph # (Auto) Andrews # (Auto) Eos # (Auto) Baso # (Auto) Seg Neutrophils % Seg Neuts % (Manual) Lymphocytes % (Manual) Seg Neutrophils # Seg Neutrophils # Man Lymphocytes # (Manual) D-Dimer ABG pH POC ABG pCO2 POC ABG pO2 ABG pO2 ABG HCO3 ABG O2 Saturation ABG Base Excess ABG Oxyhemoglobin ABG Sodium ABG Chloride ABG Glucose Oxyhemoglobin Carboxyhemoglobin Sodium Potassium Chloride Carbon Dioxide BUN Creatinine Glucose POC Glucose 224 H 259 H 238 H Hemoglobin A1c Magnesium Ferritin AST ALT Alkaline Phosphatase Lactate Dehydrogenase C-Reactive Protein Total Protein Albumin Arterial Blood Glucose Coronavirus (PCR) 06/04/21 06/05/21 06/05/21 21:26 05:26 05:26 WBC MCV MCH MCHC RDW Lymph % (Auto) Andrews % (Auto) Eos % (Auto) Lymph # (Auto) Andrews # (Auto) Eos # (Auto) Baso # (Auto) Seg Neutrophils % Seg Neuts % (Manual) Lymphocytes % (Manual) Seg Neutrophils # Seg Neutrophils # Man Lymphocytes # (Manual) D-Dimer 488.49 H ABG pH POC ABG pCO2 POC ABG pO2 ABG pO2 ABG HCO3 ABG O2 Saturation ABG Base Excess ABG Oxyhemoglobin ABG Sodium ABG Chloride ABG Glucose Oxyhemoglobin Carboxyhemoglobin Sodium Potassium Chloride Carbon Dioxide BUN Creatinine 0.2 L Glucose 198 H POC Glucose 257 H Hemoglobin A1c Magnesium Ferritin AST ALT Alkaline Phosphatase Lactate Dehydrogenase 475 H C-Reactive Protein Total Protein Albumin Arterial Blood Glucose Coronavirus (PCR) 06/05/21 06/05/21 06/05/21 07:20 08:30 11:00 WBC MCV MCH MCHC RDW Lymph % (Auto) Andrews % (Auto) Eos % (Auto) Lymph # (Auto) Andrews # (Auto) Eos # (Auto) Baso # (Auto) Seg Neutrophils % Seg Neuts % (Manual) Lymphocytes % (Manual) Seg Neutrophils # Seg Neutrophils # Man Lymphocytes # (Manual) D-Dimer ABG pH POC ABG pCO2 POC ABG pO2 ABG pO2 ABG HCO3 ABG O2 Saturation ABG Base Excess ABG Oxyhemoglobin ABG Sodium ABG Chloride ABG Glucose Oxyhemoglobin Carboxyhemoglobin Sodium Potassium Chloride Carbon Dioxide BUN Creatinine Glucose POC Glucose 146 H 246 H Hemoglobin A1c Magnesium Ferritin AST ALT Alkaline Phosphatase Lactate Dehydrogenase C-Reactive Protein Total Protein Albumin Arterial Blood Glucose Coronavirus (PCR) Positive A 06/05/21 06/05/21 06/06/21 16:50 22:30 07:57 WBC MCV MCH MCHC RDW Lymph % (Auto) Andrews % (Auto) Eos % (Auto) Lymph # (Auto) Andrews # (Auto) Eos # (Auto) Baso # (Auto) Seg Neutrophils % Seg Neuts % (Manual) Lymphocytes % (Manual) Seg Neutrophils # Seg Neutrophils # Man Lymphocytes # (Manual) D-Dimer ABG pH POC ABG pCO2 POC ABG pO2 ABG pO2 ABG HCO3 ABG O2 Saturation ABG Base Excess ABG Oxyhemoglobin ABG Sodium ABG Chloride ABG Glucose Oxyhemoglobin Carboxyhemoglobin Sodium Potassium Chloride Carbon Dioxide BUN Creatinine Glucose POC Glucose 240 H 174 H 120 H Hemoglobin A1c Magnesium Ferritin AST ALT Alkaline Phosphatase Lactate Dehydrogenase C-Reactive Protein Total Protein Albumin Arterial Blood Glucose Coronavirus (PCR) 06/06/21 06/06/21 06/06/21 11:14 16:50 21:11 WBC MCV MCH MCHC RDW Lymph % (Auto) Andrews % (Auto) Eos % (Auto) Lymph # (Auto) Andrews # (Auto) Eos # (Auto) Baso # (Auto) Seg Neutrophils % Seg Neuts % (Manual) Lymphocytes % (Manual) Seg Neutrophils # Seg Neutrophils # Man Lymphocytes # (Manual) D-Dimer ABG pH POC ABG pCO2 POC ABG pO2 ABG pO2 ABG HCO3 ABG O2 Saturation ABG Base Excess ABG Oxyhemoglobin ABG Sodium ABG Chloride ABG Glucose Oxyhemoglobin Carboxyhemoglobin Sodium Potassium Chloride Carbon Dioxide BUN Creatinine Glucose POC Glucose 267 H 218 H 124 H Hemoglobin A1c Magnesium Ferritin AST ALT Alkaline Phosphatase Lactate Dehydrogenase C-Reactive Protein Total Protein Albumin Arterial Blood Glucose Coronavirus (PCR) 06/07/21 06/07/21 06/08/21 11:58 15:59 07:59 WBC MCV MCH MCHC RDW Lymph % (Auto) Andrews % (Auto) Eos % (Auto) Lymph # (Auto) Andrews # (Auto) Eos # (Auto) Baso # (Auto) Seg Neutrophils % Seg Neuts % (Manual) Lymphocytes % (Manual) Seg Neutrophils # Seg Neutrophils # Man Lymphocytes # (Manual) D-Dimer ABG pH POC ABG pCO2 POC ABG pO2 ABG pO2 ABG HCO3 ABG O2 Saturation ABG Base Excess ABG Oxyhemoglobin ABG Sodium ABG Chloride ABG Glucose Oxyhemoglobin Carboxyhemoglobin Sodium Potassium Chloride Carbon Dioxide BUN Creatinine Glucose POC Glucose 219 H 208 H 192 H Hemoglobin A1c Magnesium Ferritin AST ALT Alkaline Phosphatase Lactate Dehydrogenase C-Reactive Protein Total Protein Albumin Arterial Blood Glucose Coronavirus (PCR) 06/08/21 06/08/21 06/09/21 11:26 23:28 07:33 WBC MCV MCH MCHC RDW Lymph % (Auto) Andrews % (Auto) Eos % (Auto) Lymph # (Auto) Andrews # (Auto) Eos # (Auto) Baso # (Auto) Seg Neutrophils % Seg Neuts % (Manual) Lymphocytes % (Manual) Seg Neutrophils # Seg Neutrophils # Man Lymphocytes # (Manual) D-Dimer ABG pH POC ABG pCO2 POC ABG pO2 ABG pO2 ABG HCO3 ABG O2 Saturation ABG Base Excess ABG Oxyhemoglobin ABG Sodium ABG Chloride ABG Glucose Oxyhemoglobin Carboxyhemoglobin Sodium Potassium Chloride Carbon Dioxide BUN Creatinine Glucose POC Glucose 307 H 138 H 145 H Hemoglobin A1c Magnesium Ferritin AST ALT Alkaline Phosphatase Lactate Dehydrogenase C-Reactive Protein Total Protein Albumin Arterial Blood Glucose Coronavirus (PCR) 06/09/21 06/09/21 06/09/21 11:01 15:47 21:43 WBC MCV MCH MCHC RDW Lymph % (Auto) Andrews % (Auto) Eos % (Auto) Lymph # (Auto) Andrews # (Auto) Eos # (Auto) Baso # (Auto) Seg Neutrophils % Seg Neuts % (Manual) Lymphocytes % (Manual) Seg Neutrophils # Seg Neutrophils # Man Lymphocytes # (Manual) D-Dimer ABG pH POC ABG pCO2 POC ABG pO2 ABG pO2 ABG HCO3 ABG O2 Saturation ABG Base Excess ABG Oxyhemoglobin ABG Sodium ABG Chloride ABG Glucose Oxyhemoglobin Carboxyhemoglobin Sodium Potassium Chloride Carbon Dioxide BUN Creatinine Glucose POC Glucose 266 H 305 H 223 H Hemoglobin A1c Magnesium Ferritin AST ALT Alkaline Phosphatase Lactate Dehydrogenase C-Reactive Protein Total Protein Albumin Arterial Blood Glucose Coronavirus (PCR) 06/10/21 06/10/21 06/10/21 08:27 12:10 17:45 WBC MCV MCH MCHC RDW Lymph % (Auto) Andrews % (Auto) Eos % (Auto) Lymph # (Auto) Andrews # (Auto) Eos # (Auto) Baso # (Auto) Seg Neutrophils % Seg Neuts % (Manual) Lymphocytes % (Manual) Seg Neutrophils # Seg Neutrophils # Man Lymphocytes # (Manual) D-Dimer ABG pH POC ABG pCO2 POC ABG pO2 ABG pO2 ABG HCO3 ABG O2 Saturation ABG Base Excess ABG Oxyhemoglobin ABG Sodium ABG Chloride ABG Glucose Oxyhemoglobin Carboxyhemoglobin Sodium Potassium Chloride Carbon Dioxide BUN Creatinine Glucose POC Glucose 174 H 306 H 210 H Hemoglobin A1c Magnesium Ferritin AST ALT Alkaline Phosphatase Lactate Dehydrogenase C-Reactive Protein Total Protein Albumin Arterial Blood Glucose Coronavirus (PCR) 06/10/21 06/11/21 06/11/21 21:45 09:38 09:38 WBC MCV MCH MCHC RDW 20.9 H Lymph % (Auto) Andrews % (Auto) Eos % (Auto) Lymph # (Auto) Andrews # (Auto) Eos # (Auto) Baso # (Auto) Seg Neutrophils % Seg Neuts % (Manual) Lymphocytes % (Manual) Seg Neutrophils # Seg Neutrophils # Man Lymphocytes # (Manual) D-Dimer ABG pH POC ABG pCO2 POC ABG pO2 ABG pO2 ABG HCO3 ABG O2 Saturation ABG Base Excess ABG Oxyhemoglobin ABG Sodium ABG Chloride ABG Glucose Oxyhemoglobin Carboxyhemoglobin Sodium 135 L Potassium Chloride 90.8 L Carbon Dioxide 36 H BUN 29 H Creatinine 0.2 L Glucose 258 H POC Glucose 262 H Hemoglobin A1c Magnesium Ferritin AST ALT Alkaline Phosphatase Lactate Dehydrogenase C-Reactive Protein Total Protein Albumin Arterial Blood Glucose Coronavirus (PCR) 06/11/21 06/11/21 06/11/21 11:20 15:49 22:57 WBC MCV MCH MCHC RDW Lymph % (Auto) Andrews % (Auto) Eos % (Auto) Lymph # (Auto) Andrews # (Auto) Eos # (Auto) Baso # (Auto) Seg Neutrophils % Seg Neuts % (Manual) Lymphocytes % (Manual) Seg Neutrophils # Seg Neutrophils # Man Lymphocytes # (Manual) D-Dimer ABG pH POC ABG pCO2 POC ABG pO2 ABG pO2 ABG HCO3 ABG O2 Saturation ABG Base Excess ABG Oxyhemoglobin ABG Sodium ABG Chloride ABG Glucose Oxyhemoglobin Carboxyhemoglobin Sodium Potassium Chloride Carbon Dioxide BUN Creatinine Glucose POC Glucose 269 H 206 H 211 H Hemoglobin A1c Magnesium Ferritin AST ALT Alkaline Phosphatase Lactate Dehydrogenase C-Reactive Protein Total Protein Albumin Arterial Blood Glucose Coronavirus (PCR) 06/12/21 06/12/21 06/12/21 08:07 11:24 18:08 WBC MCV MCH MCHC RDW Lymph % (Auto) Andrews % (Auto) Eos % (Auto) Lymph # (Auto) Andrews # (Auto) Eos # (Auto) Baso # (Auto) Seg Neutrophils % Seg Neuts % (Manual) Lymphocytes % (Manual) Seg Neutrophils # Seg Neutrophils # Man Lymphocytes # (Manual) D-Dimer ABG pH POC ABG pCO2 POC ABG pO2 ABG pO2 ABG HCO3 ABG O2 Saturation ABG Base Excess ABG Oxyhemoglobin ABG Sodium ABG Chloride ABG Glucose Oxyhemoglobin Carboxyhemoglobin Sodium Potassium Chloride Carbon Dioxide BUN Creatinine Glucose POC Glucose 149 H 270 H 166 H Hemoglobin A1c Magnesium Ferritin AST ALT Alkaline Phosphatase Lactate Dehydrogenase C-Reactive Protein Total Protein Albumin Arterial Blood Glucose Coronavirus (PCR) 06/12/21 06/13/21 06/13/21 20:22 07:50 11:18 WBC MCV MCH MCHC RDW Lymph % (Auto) Andrews % (Auto) Eos % (Auto) Lymph # (Auto) Andrews # (Auto) Eos # (Auto) Baso # (Auto) Seg Neutrophils % Seg Neuts % (Manual) Lymphocytes % (Manual) Seg Neutrophils # Seg Neutrophils # Man Lymphocytes # (Manual) D-Dimer ABG pH POC ABG pCO2 POC ABG pO2 ABG pO2 ABG HCO3 ABG O2 Saturation ABG Base Excess ABG Oxyhemoglobin ABG Sodium ABG Chloride ABG Glucose Oxyhemoglobin Carboxyhemoglobin Sodium Potassium Chloride Carbon Dioxide BUN Creatinine Glucose POC Glucose 155 H 163 H 293 H Hemoglobin A1c Magnesium Ferritin AST ALT Alkaline Phosphatase Lactate Dehydrogenase C-Reactive Protein Total Protein Albumin Arterial Blood Glucose Coronavirus (PCR) 06/13/21 06/13/21 06/14/21 16:41 21:00 07:41 WBC MCV MCH MCHC RDW Lymph % (Auto) Andrews % (Auto) Eos % (Auto) Lymph # (Auto) Andrews # (Auto) Eos # (Auto) Baso # (Auto) Seg Neutrophils % Seg Neuts % (Manual) Lymphocytes % (Manual) Seg Neutrophils # Seg Neutrophils # Man Lymphocytes # (Manual) D-Dimer ABG pH POC ABG pCO2 POC ABG pO2 ABG pO2 ABG HCO3 ABG O2 Saturation ABG Base Excess ABG Oxyhemoglobin ABG Sodium ABG Chloride ABG Glucose Oxyhemoglobin Carboxyhemoglobin Sodium Potassium Chloride Carbon Dioxide BUN Creatinine Glucose POC Glucose 232 H 183 H 52 L Hemoglobin A1c Magnesium Ferritin AST ALT Alkaline Phosphatase Lactate Dehydrogenase C-Reactive Protein Total Protein Albumin Arterial Blood Glucose Coronavirus (PCR) 06/14/21 06/14/21 06/14/21 11:44 17:44 21:44 WBC MCV MCH MCHC RDW Lymph % (Auto) Andrews % (Auto) Eos % (Auto) Lymph # (Auto) Andrews # (Auto) Eos # (Auto) Baso # (Auto) Seg Neutrophils % Seg Neuts % (Manual) Lymphocytes % (Manual) Seg Neutrophils # Seg Neutrophils # Man Lymphocytes # (Manual) D-Dimer ABG pH POC ABG pCO2 POC ABG pO2 ABG pO2 ABG HCO3 ABG O2 Saturation ABG Base Excess ABG Oxyhemoglobin ABG Sodium ABG Chloride ABG Glucose Oxyhemoglobin Carboxyhemoglobin Sodium Potassium Chloride Carbon Dioxide BUN Creatinine Glucose POC Glucose 205 H 293 H 288 H Hemoglobin A1c Magnesium Ferritin AST ALT Alkaline Phosphatase Lactate Dehydrogenase C-Reactive Protein Total Protein Albumin Arterial Blood Glucose Coronavirus (PCR) 06/15/21 06/15/21 06/15/21 08:00 08:00 11:40 WBC MCV MCH 33 H MCHC 35 H RDW 20.3 H Lymph % (Auto) Andrews % (Auto) Eos % (Auto) Lymph # (Auto) Andrews # (Auto) Eos # (Auto) Baso # (Auto) Seg Neutrophils % Seg Neuts % (Manual) Lymphocytes % (Manual) Seg Neutrophils # Seg Neutrophils # Man Lymphocytes # (Manual) D-Dimer ABG pH POC ABG pCO2 POC ABG pO2 ABG pO2 ABG HCO3 ABG O2 Saturation ABG Base Excess ABG Oxyhemoglobin ABG Sodium ABG Chloride ABG Glucose Oxyhemoglobin Carboxyhemoglobin Sodium Potassium 3.2 L Chloride 95.3 L Carbon Dioxide 32 H BUN 23 H Creatinine 0.2 L Glucose 103 H POC Glucose 204 H Hemoglobin A1c Magnesium Ferritin AST ALT Alkaline Phosphatase Lactate Dehydrogenase C-Reactive Protein Total Protein Albumin Arterial Blood Glucose Coronavirus (PCR) 06/15/21 06/15/21 06/16/21 16:17 22:00 11:43 WBC MCV MCH MCHC RDW Lymph % (Auto) Andrews % (Auto) Eos % (Auto) Lymph # (Auto) Andrews # (Auto) Eos # (Auto) Baso # (Auto) Seg Neutrophils % Seg Neuts % (Manual) Lymphocytes % (Manual) Seg Neutrophils # Seg Neutrophils # Man Lymphocytes # (Manual) D-Dimer ABG pH POC ABG pCO2 POC ABG pO2 ABG pO2 ABG HCO3 ABG O2 Saturation ABG Base Excess ABG Oxyhemoglobin ABG Sodium ABG Chloride ABG Glucose Oxyhemoglobin Carboxyhemoglobin Sodium Potassium Chloride Carbon Dioxide BUN Creatinine Glucose POC Glucose 295 H 233 H 201 H Hemoglobin A1c Magnesium Ferritin AST ALT Alkaline Phosphatase Lactate Dehydrogenase C-Reactive Protein Total Protein Albumin Arterial Blood Glucose Coronavirus (PCR) 06/16/21 06/16/21 06/17/21 17:21 21:27 07:12 WBC MCV MCH MCHC RDW Lymph % (Auto) Andrews % (Auto) Eos % (Auto) Lymph # (Auto) Andrews # (Auto) Eos # (Auto) Baso # (Auto) Seg Neutrophils % Seg Neuts % (Manual) Lymphocytes % (Manual) Seg Neutrophils # Seg Neutrophils # Man Lymphocytes # (Manual) D-Dimer ABG pH POC ABG pCO2 POC ABG pO2 ABG pO2 ABG HCO3 ABG O2 Saturation ABG Base Excess ABG Oxyhemoglobin ABG Sodium ABG Chloride ABG Glucose Oxyhemoglobin Carboxyhemoglobin Sodium Potassium Chloride Carbon Dioxide BUN Creatinine Glucose POC Glucose 299 H 290 H 67 L Hemoglobin A1c Magnesium Ferritin AST ALT Alkaline Phosphatase Lactate Dehydrogenase C-Reactive Protein Total Protein Albumin Arterial Blood Glucose Coronavirus (PCR) 06/17/21 06/17/21 06/17/21 11:53 17:02 22:25 WBC MCV MCH MCHC RDW Lymph % (Auto) Andrews % (Auto) Eos % (Auto) Lymph # (Auto) Andrews # (Auto) Eos # (Auto) Baso # (Auto) Seg Neutrophils % Seg Neuts % (Manual) Lymphocytes % (Manual) Seg Neutrophils # Seg Neutrophils # Man Lymphocytes # (Manual) D-Dimer ABG pH POC ABG pCO2 POC ABG pO2 ABG pO2 ABG HCO3 ABG O2 Saturation ABG Base Excess ABG Oxyhemoglobin ABG Sodium ABG Chloride ABG Glucose Oxyhemoglobin Carboxyhemoglobin Sodium Potassium Chloride Carbon Dioxide BUN Creatinine Glucose POC Glucose 199 H 362 H 235 H Hemoglobin A1c Magnesium Ferritin AST ALT Alkaline Phosphatase Lactate Dehydrogenase C-Reactive Protein Total Protein Albumin Arterial Blood Glucose Coronavirus (PCR) 06/18/21 06/18/21 06/18/21 08:00 11:48 16:40 WBC MCV MCH MCHC RDW Lymph % (Auto) Andrews % (Auto) Eos % (Auto) Lymph # (Auto) Andrews # (Auto) Eos # (Auto) Baso # (Auto) Seg Neutrophils % Seg Neuts % (Manual) Lymphocytes % (Manual) Seg Neutrophils # Seg Neutrophils # Man Lymphocytes # (Manual) D-Dimer ABG pH POC ABG pCO2 POC ABG pO2 ABG pO2 ABG HCO3 ABG O2 Saturation ABG Base Excess ABG Oxyhemoglobin ABG Sodium ABG Chloride ABG Glucose Oxyhemoglobin Carboxyhemoglobin Sodium Potassium Chloride Carbon Dioxide BUN Creatinine Glucose POC Glucose 62 L 211 H 305 H Hemoglobin A1c Magnesium Ferritin AST ALT Alkaline Phosphatase Lactate Dehydrogenase C-Reactive Protein Total Protein Albumin Arterial Blood Glucose Coronavirus (PCR) 06/18/21 06/19/21 06/19/21 21:26 07:27 11:32 WBC MCV MCH MCHC RDW Lymph % (Auto) Andrews % (Auto) Eos % (Auto) Lymph # (Auto) Andrews # (Auto) Eos # (Auto) Baso # (Auto) Seg Neutrophils % Seg Neuts % (Manual) Lymphocytes % (Manual) Seg Neutrophils # Seg Neutrophils # Man Lymphocytes # (Manual) D-Dimer ABG pH POC ABG pCO2 POC ABG pO2 ABG pO2 ABG HCO3 ABG O2 Saturation ABG Base Excess ABG Oxyhemoglobin ABG Sodium ABG Chloride ABG Glucose Oxyhemoglobin Carboxyhemoglobin Sodium Potassium Chloride Carbon Dioxide BUN Creatinine Glucose POC Glucose 149 H 60 L 208 H Hemoglobin A1c Magnesium Ferritin AST ALT Alkaline Phosphatase Lactate Dehydrogenase C-Reactive Protein Total Protein Albumin Arterial Blood Glucose Coronavirus (PCR) 06/19/21 06/19/21 06/20/21 16:06 22:28 07:48 WBC MCV MCH MCHC RDW Lymph % (Auto) Andrews % (Auto) Eos % (Auto) Lymph # (Auto) Andrews # (Auto) Eos # (Auto) Baso # (Auto) Seg Neutrophils % Seg Neuts % (Manual) Lymphocytes % (Manual) Seg Neutrophils # Seg Neutrophils # Man Lymphocytes # (Manual) D-Dimer ABG pH POC ABG pCO2 POC ABG pO2 ABG pO2 ABG HCO3 ABG O2 Saturation ABG Base Excess ABG Oxyhemoglobin ABG Sodium ABG Chloride ABG Glucose Oxyhemoglobin Carboxyhemoglobin Sodium Potassium Chloride Carbon Dioxide BUN Creatinine Glucose POC Glucose 266 H 166 H 58 L Hemoglobin A1c Magnesium Ferritin AST ALT Alkaline Phosphatase Lactate Dehydrogenase C-Reactive Protein Total Protein Albumin Arterial Blood Glucose Coronavirus (PCR) 06/20/21 06/20/21 06/20/21 09:09 11:04 16:01 WBC MCV MCH MCHC RDW Lymph % (Auto) Andrews % (Auto) Eos % (Auto) Lymph # (Auto) Andrews # (Auto) Eos # (Auto) Baso # (Auto) Seg Neutrophils % Seg Neuts % (Manual) Lymphocytes % (Manual) Seg Neutrophils # Seg Neutrophils # Man Lymphocytes # (Manual) D-Dimer ABG pH POC ABG pCO2 POC ABG pO2 ABG pO2 ABG HCO3 ABG O2 Saturation ABG Base Excess ABG Oxyhemoglobin ABG Sodium ABG Chloride ABG Glucose Oxyhemoglobin Carboxyhemoglobin Sodium Potassium Chloride Carbon Dioxide BUN Creatinine Glucose POC Glucose 146 H 225 H 330 H Hemoglobin A1c Magnesium Ferritin AST ALT Alkaline Phosphatase Lactate Dehydrogenase C-Reactive Protein Total Protein Albumin Arterial Blood Glucose Coronavirus (PCR) 06/20/21 06/21/21 06/21/21 20:46 06:45 06:45 WBC MCV MCH MCHC RDW 20.0 H Lymph % (Auto) Andrews % (Auto) Eos % (Auto) Lymph # (Auto) Andrews # (Auto) Eos # (Auto) Baso # (Auto) Seg Neutrophils % Seg Neuts % (Manual) Lymphocytes % (Manual) Seg Neutrophils # Seg Neutrophils # Man Lymphocytes # (Manual) D-Dimer ABG pH POC ABG pCO2 POC ABG pO2 ABG pO2 ABG HCO3 ABG O2 Saturation ABG Base Excess ABG Oxyhemoglobin ABG Sodium ABG Chloride ABG Glucose Oxyhemoglobin Carboxyhemoglobin Sodium Potassium 2.9 L* Chloride 95.0 L Carbon Dioxide 31 H BUN 23 H Creatinine 0.2 L Glucose 45 L POC Glucose 215 H Hemoglobin A1c Magnesium Ferritin AST ALT Alkaline Phosphatase Lactate Dehydrogenase C-Reactive Protein Total Protein Albumin Arterial Blood Glucose Coronavirus (PCR) 06/21/21 06/21/21 06/21/21 07:38 09:06 12:40 WBC MCV MCH MCHC RDW Lymph % (Auto) Andrews % (Auto) Eos % (Auto) Lymph # (Auto) Andrews # (Auto) Eos # (Auto) Baso # (Auto) Seg Neutrophils % Seg Neuts % (Manual) Lymphocytes % (Manual) Seg Neutrophils # Seg Neutrophils # Man Lymphocytes # (Manual) D-Dimer ABG pH POC ABG pCO2 POC ABG pO2 ABG pO2 ABG HCO3 ABG O2 Saturation ABG Base Excess ABG Oxyhemoglobin ABG Sodium ABG Chloride ABG Glucose Oxyhemoglobin Carboxyhemoglobin Sodium Potassium Chloride Carbon Dioxide BUN Creatinine Glucose POC Glucose 50 L 196 H 205 H Hemoglobin A1c Magnesium Ferritin AST ALT Alkaline Phosphatase Lactate Dehydrogenase C-Reactive Protein Total Protein Albumin Arterial Blood Glucose Coronavirus (PCR) 06/21/21 06/22/21 06/22/21 21:36 06:25 07:15 WBC MCV MCH MCHC RDW Lymph % (Auto) Andrews % (Auto) Eos % (Auto) Lymph # (Auto) Andrews # (Auto) Eos # (Auto) Baso # (Auto) Seg Neutrophils % Seg Neuts % (Manual) Lymphocytes % (Manual) Seg Neutrophils # Seg Neutrophils # Man Lymphocytes # (Manual) D-Dimer ABG pH POC ABG pCO2 POC ABG pO2 ABG pO2 ABG HCO3 ABG O2 Saturation ABG Base Excess ABG Oxyhemoglobin ABG Sodium ABG Chloride ABG Glucose Oxyhemoglobin Carboxyhemoglobin Sodium Potassium Chloride Carbon Dioxide BUN 20 H Creatinine 0.2 L Glucose POC Glucose 245 H 66 L Hemoglobin A1c Magnesium Ferritin AST ALT Alkaline Phosphatase Lactate Dehydrogenase C-Reactive Protein Total Protein Albumin Arterial Blood Glucose Coronavirus (PCR) 06/22/21 06/22/21 06/22/21 11:03 16:07 22:03 WBC MCV MCH MCHC RDW Lymph % (Auto) Andrews % (Auto) Eos % (Auto) Lymph # (Auto) Andrews # (Auto) Eos # (Auto) Baso # (Auto) Seg Neutrophils % Seg Neuts % (Manual) Lymphocytes % (Manual) Seg Neutrophils # Seg Neutrophils # Man Lymphocytes # (Manual) D-Dimer ABG pH POC ABG pCO2 POC ABG pO2 ABG pO2 ABG HCO3 ABG O2 Saturation ABG Base Excess ABG Oxyhemoglobin ABG Sodium ABG Chloride ABG Glucose Oxyhemoglobin Carboxyhemoglobin Sodium Potassium Chloride Carbon Dioxide BUN Creatinine Glucose POC Glucose 184 H 326 H 138 H Hemoglobin A1c Magnesium Ferritin AST ALT Alkaline Phosphatase Lactate Dehydrogenase C-Reactive Protein Total Protein Albumin Arterial Blood Glucose Coronavirus (PCR) 06/23/21 06/23/21 06/23/21 07:19 10:34 16:35 WBC MCV MCH MCHC RDW Lymph % (Auto) Andrews % (Auto) Eos % (Auto) Lymph # (Auto) Andrews # (Auto) Eos # (Auto) Baso # (Auto) Seg Neutrophils % Seg Neuts % (Manual) Lymphocytes % (Manual) Seg Neutrophils # Seg Neutrophils # Man Lymphocytes # (Manual) D-Dimer ABG pH POC ABG pCO2 POC ABG pO2 ABG pO2 ABG HCO3 ABG O2 Saturation ABG Base Excess ABG Oxyhemoglobin ABG Sodium ABG Chloride ABG Glucose Oxyhemoglobin Carboxyhemoglobin Sodium Potassium Chloride Carbon Dioxide BUN Creatinine Glucose POC Glucose 69 L 218 H 326 H Hemoglobin A1c Magnesium Ferritin AST ALT Alkaline Phosphatase Lactate Dehydrogenase C-Reactive Protein Total Protein Albumin Arterial Blood Glucose Coronavirus (PCR) 06/23/21 06/24/21 06/24/21 22:44 11:41 16:54 WBC MCV MCH MCHC RDW Lymph % (Auto) Andrews % (Auto) Eos % (Auto) Lymph # (Auto) Andrews # (Auto) Eos # (Auto) Baso # (Auto) Seg Neutrophils % Seg Neuts % (Manual) Lymphocytes % (Manual) Seg Neutrophils # Seg Neutrophils # Man Lymphocytes # (Manual) D-Dimer ABG pH POC ABG pCO2 POC ABG pO2 ABG pO2 ABG HCO3 ABG O2 Saturation ABG Base Excess ABG Oxyhemoglobin ABG Sodium ABG Chloride ABG Glucose Oxyhemoglobin Carboxyhemoglobin Sodium Potassium Chloride Carbon Dioxide BUN Creatinine Glucose POC Glucose 252 H 217 H 357 H Hemoglobin A1c Magnesium Ferritin AST ALT Alkaline Phosphatase Lactate Dehydrogenase C-Reactive Protein Total Protein Albumin Arterial Blood Glucose Coronavirus (PCR) 06/24/21 06/25/21 06/25/21 20:40 11:51 16:47 WBC MCV MCH MCHC RDW Lymph % (Auto) Andrews % (Auto) Eos % (Auto) Lymph # (Auto) Andrews # (Auto) Eos # (Auto) Baso # (Auto) Seg Neutrophils % Seg Neuts % (Manual) Lymphocytes % (Manual) Seg Neutrophils # Seg Neutrophils # Man Lymphocytes # (Manual) D-Dimer ABG pH POC ABG pCO2 POC ABG pO2 ABG pO2 ABG HCO3 ABG O2 Saturation ABG Base Excess ABG Oxyhemoglobin ABG Sodium ABG Chloride ABG Glucose Oxyhemoglobin Carboxyhemoglobin Sodium Potassium Chloride Carbon Dioxide BUN Creatinine Glucose POC Glucose 239 H 182 H 229 H Hemoglobin A1c Magnesium Ferritin AST ALT Alkaline Phosphatase Lactate Dehydrogenase C-Reactive Protein Total Protein Albumin Arterial Blood Glucose Coronavirus (PCR) 06/25/21 06/26/21 06/26/21 22:27 07:20 12:19 WBC MCV MCH MCHC RDW Lymph % (Auto) Andrews % (Auto) Eos % (Auto) Lymph # (Auto) Andrews # (Auto) Eos # (Auto) Baso # (Auto) Seg Neutrophils % Seg Neuts % (Manual) Lymphocytes % (Manual) Seg Neutrophils # Seg Neutrophils # Man Lymphocytes # (Manual) D-Dimer ABG pH POC ABG pCO2 POC ABG pO2 ABG pO2 ABG HCO3 ABG O2 Saturation ABG Base Excess ABG Oxyhemoglobin ABG Sodium ABG Chloride ABG Glucose Oxyhemoglobin Carboxyhemoglobin Sodium Potassium 3.2 L D Chloride Carbon Dioxide BUN 20 H Creatinine 0.3 L Glucose POC Glucose 209 H 273 H Hemoglobin A1c Magnesium Ferritin AST ALT 77 H Alkaline Phosphatase Lactate Dehydrogenase C-Reactive Protein Total Protein Albumin 3.3 L Arterial Blood Glucose Coronavirus (PCR) 06/26/21 06/26/21 06/27/21 16:52 20:55 07:14 WBC MCV MCH MCHC RDW Lymph % (Auto) Andrews % (Auto) Eos % (Auto) Lymph # (Auto) Andrews # (Auto) Eos # (Auto) Baso # (Auto) Seg Neutrophils % Seg Neuts % (Manual) Lymphocytes % (Manual) Seg Neutrophils # Seg Neutrophils # Man Lymphocytes # (Manual) D-Dimer ABG pH POC ABG pCO2 POC ABG pO2 ABG pO2 ABG HCO3 ABG O2 Saturation ABG Base Excess ABG Oxyhemoglobin ABG Sodium ABG Chloride ABG Glucose Oxyhemoglobin Carboxyhemoglobin Sodium Potassium Chloride Carbon Dioxide 31 H BUN 19 H Creatinine 0.2 L Glucose 112 H POC Glucose 326 H 220 H Hemoglobin A1c Magnesium Ferritin AST ALT Alkaline Phosphatase Lactate Dehydrogenase C-Reactive Protein Total Protein Albumin Arterial Blood Glucose Coronavirus (PCR) 06/27/21 06/27/21 06/27/21 07:29 10:54 15:49 WBC MCV MCH MCHC RDW Lymph % (Auto) Andrews % (Auto) Eos % (Auto) Lymph # (Auto) Andrews # (Auto) Eos # (Auto) Baso # (Auto) Seg Neutrophils % Seg Neuts % (Manual) Lymphocytes % (Manual) Seg Neutrophils # Seg Neutrophils # Man Lymphocytes # (Manual) D-Dimer ABG pH POC ABG pCO2 POC ABG pO2 ABG pO2 ABG HCO3 ABG O2 Saturation ABG Base Excess ABG Oxyhemoglobin ABG Sodium ABG Chloride ABG Glucose Oxyhemoglobin Carboxyhemoglobin Sodium Potassium Chloride Carbon Dioxide BUN Creatinine Glucose POC Glucose 115 H 228 H 240 H Hemoglobin A1c Magnesium Ferritin AST ALT Alkaline Phosphatase Lactate Dehydrogenase C-Reactive Protein Total Protein Albumin Arterial Blood Glucose Coronavirus (PCR) 06/28/21 06/28/21 06/28/21 05:43 05:43 07:13 WBC MCV MCH 33 H MCHC RDW 19.8 H Lymph % (Auto) Andrews % (Auto) Eos % (Auto) Lymph # (Auto) Andrews # (Auto) Eos # (Auto) Baso # (Auto) Seg Neutrophils % Seg Neuts % (Manual) Lymphocytes % (Manual) Seg Neutrophils # Seg Neutrophils # Man Lymphocytes # (Manual) D-Dimer ABG pH POC ABG pCO2 POC ABG pO2 ABG pO2 ABG HCO3 ABG O2 Saturation ABG Base Excess ABG Oxyhemoglobin ABG Sodium ABG Chloride ABG Glucose Oxyhemoglobin Carboxyhemoglobin Sodium Potassium 3.3 L Chloride Carbon Dioxide BUN 22 H Creatinine 0.2 L Glucose POC Glucose 69 L Hemoglobin A1c Magnesium Ferritin AST ALT 63 H Alkaline Phosphatase Lactate Dehydrogenase C-Reactive Protein Total Protein Albumin 3.3 L Arterial Blood Glucose Coronavirus (PCR) 06/28/21 06/28/21 06/28/21 12:18 15:37 21:01 WBC MCV MCH MCHC RDW Lymph % (Auto) Andrews % (Auto) Eos % (Auto) Lymph # (Auto) Andrews # (Auto) Eos # (Auto) Baso # (Auto) Seg Neutrophils % Seg Neuts % (Manual) Lymphocytes % (Manual) Seg Neutrophils # Seg Neutrophils # Man Lymphocytes # (Manual) D-Dimer ABG pH POC ABG pCO2 POC ABG pO2 ABG pO2 ABG HCO3 ABG O2 Saturation ABG Base Excess ABG Oxyhemoglobin ABG Sodium ABG Chloride ABG Glucose Oxyhemoglobin Carboxyhemoglobin Sodium Potassium Chloride Carbon Dioxide BUN Creatinine Glucose POC Glucose 154 H 201 H 191 H Hemoglobin A1c Magnesium Ferritin AST ALT Alkaline Phosphatase Lactate Dehydrogenase C-Reactive Protein Total Protein Albumin Arterial Blood Glucose Coronavirus (PCR) 06/29/21 06/29/21 06/29/21 11:55 15:47 21:06 WBC MCV MCH MCHC RDW Lymph % (Auto) Andrews % (Auto) Eos % (Auto) Lymph # (Auto) Andrews # (Auto) Eos # (Auto) Baso # (Auto) Seg Neutrophils % Seg Neuts % (Manual) Lymphocytes % (Manual) Seg Neutrophils # Seg Neutrophils # Man Lymphocytes # (Manual) D-Dimer ABG pH POC ABG pCO2 POC ABG pO2 ABG pO2 ABG HCO3 ABG O2 Saturation ABG Base Excess ABG Oxyhemoglobin ABG Sodium ABG Chloride ABG Glucose Oxyhemoglobin Carboxyhemoglobin Sodium Potassium Chloride Carbon Dioxide BUN Creatinine Glucose POC Glucose 238 H 249 H 155 H Hemoglobin A1c Magnesium Ferritin AST ALT Alkaline Phosphatase Lactate Dehydrogenase C-Reactive Protein Total Protein Albumin Arterial Blood Glucose Coronavirus (PCR) 06/30/21 06/30/21 06/30/21 04:00 07:50 11:50 WBC MCV MCH MCHC RDW Lymph % (Auto) Andrews % (Auto) Eos % (Auto) Lymph # (Auto) Andrews # (Auto) Eos # (Auto) Baso # (Auto) Seg Neutrophils % Seg Neuts % (Manual) Lymphocytes % (Manual) Seg Neutrophils # Seg Neutrophils # Man Lymphocytes # (Manual) D-Dimer ABG pH POC ABG pCO2 POC ABG pO2 ABG pO2 ABG HCO3 ABG O2 Saturation ABG Base Excess ABG Oxyhemoglobin ABG Sodium ABG Chloride ABG Glucose Oxyhemoglobin Carboxyhemoglobin Sodium Potassium 3.5 L Chloride Carbon Dioxide BUN 18 H Creatinine 0.3 L Glucose 111 H POC Glucose 117 H 250 H Hemoglobin A1c Magnesium Ferritin AST ALT Alkaline Phosphatase Lactate Dehydrogenase C-Reactive Protein Total Protein Albumin Arterial Blood Glucose Coronavirus (PCR) 06/30/21 06/30/21 07/01/21 16:05 21:02 07:26 WBC MCV MCH MCHC RDW Lymph % (Auto) Andrews % (Auto) Eos % (Auto) Lymph # (Auto) Andrews # (Auto) Eos # (Auto) Baso # (Auto) Seg Neutrophils % Seg Neuts % (Manual) Lymphocytes % (Manual) Seg Neutrophils # Seg Neutrophils # Man Lymphocytes # (Manual) D-Dimer ABG pH POC ABG pCO2 POC ABG pO2 ABG pO2 ABG HCO3 ABG O2 Saturation ABG Base Excess ABG Oxyhemoglobin ABG Sodium ABG Chloride ABG Glucose Oxyhemoglobin Carboxyhemoglobin Sodium Potassium Chloride Carbon Dioxide BUN Creatinine Glucose POC Glucose 250 H 217 H 111 H Hemoglobin A1c Magnesium Ferritin AST ALT Alkaline Phosphatase Lactate Dehydrogenase C-Reactive Protein Total Protein Albumin Arterial Blood Glucose Coronavirus (PCR) 07/01/21 07/01/21 07/01/21 11:06 15:48 21:31 WBC MCV MCH MCHC RDW Lymph % (Auto) Andrews % (Auto) Eos % (Auto) Lymph # (Auto) Andrews # (Auto) Eos # (Auto) Baso # (Auto) Seg Neutrophils % Seg Neuts % (Manual) Lymphocytes % (Manual) Seg Neutrophils # Seg Neutrophils # Man Lymphocytes # (Manual) D-Dimer ABG pH POC ABG pCO2 POC ABG pO2 ABG pO2 ABG HCO3 ABG O2 Saturation ABG Base Excess ABG Oxyhemoglobin ABG Sodium ABG Chloride ABG Glucose Oxyhemoglobin Carboxyhemoglobin Sodium Potassium Chloride Carbon Dioxide BUN Creatinine Glucose POC Glucose 229 H 239 H 199 H Hemoglobin A1c Magnesium Ferritin AST ALT Alkaline Phosphatase Lactate Dehydrogenase C-Reactive Protein Total Protein Albumin Arterial Blood Glucose Coronavirus (PCR) 07/02/21 07/02/21 07/02/21 11:50 16:44 21:49 WBC MCV MCH MCHC RDW Lymph % (Auto) Andrews % (Auto) Eos % (Auto) Lymph # (Auto) Andrews # (Auto) Eos # (Auto) Baso # (Auto) Seg Neutrophils % Seg Neuts % (Manual) Lymphocytes % (Manual) Seg Neutrophils # Seg Neutrophils # Man Lymphocytes # (Manual) D-Dimer ABG pH POC ABG pCO2 POC ABG pO2 ABG pO2 ABG HCO3 ABG O2 Saturation ABG Base Excess ABG Oxyhemoglobin ABG Sodium ABG Chloride ABG Glucose Oxyhemoglobin Carboxyhemoglobin Sodium Potassium Chloride Carbon Dioxide BUN Creatinine Glucose POC Glucose 230 H 203 H 197 H Hemoglobin A1c Magnesium Ferritin AST ALT Alkaline Phosphatase Lactate Dehydrogenase C-Reactive Protein Total Protein Albumin Arterial Blood Glucose Coronavirus (PCR) 07/03/21 07/03/21 07/03/21 05:46 05:46 11:59 WBC MCV MCH MCHC RDW 19.6 H Lymph % (Auto) Andrews % (Auto) Eos % (Auto) Lymph # (Auto) Andrews # (Auto) Eos # (Auto) Baso # (Auto) Seg Neutrophils % Seg Neuts % (Manual) Lymphocytes % (Manual) Seg Neutrophils # Seg Neutrophils # Man Lymphocytes # (Manual) D-Dimer ABG pH POC ABG pCO2 POC ABG pO2 ABG pO2 ABG HCO3 ABG O2 Saturation ABG Base Excess ABG Oxyhemoglobin ABG Sodium ABG Chloride ABG Glucose Oxyhemoglobin Carboxyhemoglobin Sodium Potassium 3.2 L Chloride Carbon Dioxide BUN Creatinine 0.3 L Glucose POC Glucose 145 H Hemoglobin A1c Magnesium Ferritin AST ALT Alkaline Phosphatase Lactate Dehydrogenase C-Reactive Protein Total Protein Albumin Arterial Blood Glucose Coronavirus (PCR) 07/03/21 07/03/21 07/04/21 16:40 22:00 06:35 WBC MCV MCH MCHC RDW Lymph % (Auto) Andrews % (Auto) Eos % (Auto) Lymph # (Auto) Andrews # (Auto) Eos # (Auto) Baso # (Auto) Seg Neutrophils % Seg Neuts % (Manual) Lymphocytes % (Manual) Seg Neutrophils # Seg Neutrophils # Man Lymphocytes # (Manual) D-Dimer ABG pH POC ABG pCO2 POC ABG pO2 ABG pO2 ABG HCO3 ABG O2 Saturation ABG Base Excess ABG Oxyhemoglobin ABG Sodium ABG Chloride ABG Glucose Oxyhemoglobin Carboxyhemoglobin Sodium Potassium Chloride Carbon Dioxide BUN Creatinine 0.3 L Glucose 118 H POC Glucose 176 H 127 H Hemoglobin A1c Magnesium Ferritin AST ALT Alkaline Phosphatase Lactate Dehydrogenase C-Reactive Protein Total Protein Albumin Arterial Blood Glucose Coronavirus (PCR) 07/04/21 07/04/21 07/05/21 12:30 16:38 08:37 WBC MCV MCH MCHC RDW Lymph % (Auto) Andrews % (Auto) Eos % (Auto) Lymph # (Auto) Andrews # (Auto) Eos # (Auto) Baso # (Auto) Seg Neutrophils % Seg Neuts % (Manual) Lymphocytes % (Manual) Seg Neutrophils # Seg Neutrophils # Man Lymphocytes # (Manual) D-Dimer ABG pH POC ABG pCO2 POC ABG pO2 ABG pO2 ABG HCO3 ABG O2 Saturation ABG Base Excess ABG Oxyhemoglobin ABG Sodium ABG Chloride ABG Glucose Oxyhemoglobin Carboxyhemoglobin Sodium Potassium Chloride Carbon Dioxide BUN Creatinine Glucose POC Glucose 162 H 205 H 115 H Hemoglobin A1c Magnesium Ferritin AST ALT Alkaline Phosphatase Lactate Dehydrogenase C-Reactive Protein Total Protein Albumin Arterial Blood Glucose Coronavirus (PCR) 07/05/21 07/05/21 07/05/21 10:57 16:42 21:14 WBC MCV MCH MCHC RDW Lymph % (Auto) Andrews % (Auto) Eos % (Auto) Lymph # (Auto) Andrews # (Auto) Eos # (Auto) Baso # (Auto) Seg Neutrophils % Seg Neuts % (Manual) Lymphocytes % (Manual) Seg Neutrophils # Seg Neutrophils # Man Lymphocytes # (Manual) D-Dimer ABG pH POC ABG pCO2 POC ABG pO2 ABG pO2 ABG HCO3 ABG O2 Saturation ABG Base Excess ABG Oxyhemoglobin ABG Sodium ABG Chloride ABG Glucose Oxyhemoglobin Carboxyhemoglobin Sodium Potassium Chloride Carbon Dioxide BUN Creatinine Glucose POC Glucose 151 H 184 H 130 H Hemoglobin A1c Magnesium Ferritin AST ALT Alkaline Phosphatase Lactate Dehydrogenase C-Reactive Protein Total Protein Albumin Arterial Blood Glucose Coronavirus (PCR) 07/06/21 07/06/21 07/06/21 07:31 11:49 16:46 WBC MCV MCH MCHC RDW Lymph % (Auto) Andrews % (Auto) Eos % (Auto) Lymph # (Auto) Andrews # (Auto) Eos # (Auto) Baso # (Auto) Seg Neutrophils % Seg Neuts % (Manual) Lymphocytes % (Manual) Seg Neutrophils # Seg Neutrophils # Man Lymphocytes # (Manual) D-Dimer ABG pH POC ABG pCO2 POC ABG pO2 ABG pO2 ABG HCO3 ABG O2 Saturation ABG Base Excess ABG Oxyhemoglobin ABG Sodium ABG Chloride ABG Glucose Oxyhemoglobin Carboxyhemoglobin Sodium Potassium Chloride Carbon Dioxide BUN Creatinine Glucose POC Glucose 106 H 173 H 205 H Hemoglobin A1c Magnesium Ferritin AST ALT Alkaline Phosphatase Lactate Dehydrogenase C-Reactive Protein Total Protein Albumin Arterial Blood Glucose Coronavirus (PCR) 07/06/21 07/07/21 07/07/21 21:38 06:00 06:00 WBC 16.1 H MCV MCH MCHC RDW 18.8 H Lymph % (Auto) Andrews % (Auto) Eos % (Auto) Lymph # (Auto) Andrews # (Auto) 1.1 H Eos # (Auto) Baso # (Auto) 0.2 H Seg Neutrophils % 74.9 H Seg Neuts % (Manual) Lymphocytes % (Manual) Seg Neutrophils # 12.1 H Seg Neutrophils # Man Lymphocytes # (Manual) D-Dimer ABG pH POC ABG pCO2 POC ABG pO2 ABG pO2 ABG HCO3 ABG O2 Saturation ABG Base Excess ABG Oxyhemoglobin ABG Sodium ABG Chloride ABG Glucose Oxyhemoglobin Carboxyhemoglobin Sodium Potassium 3.5 L D Chloride Carbon Dioxide BUN 6 L Creatinine < 0.2 L Glucose 106 H POC Glucose 120 H Hemoglobin A1c Magnesium Ferritin AST ALT Alkaline Phosphatase Lactate Dehydrogenase C-Reactive Protein Total Protein Albumin Arterial Blood Glucose Coronavirus (PCR) 07/07/21 07/07/21 07/07/21 07:10 11:53 15:53 WBC MCV MCH MCHC RDW Lymph % (Auto) Andrews % (Auto) Eos % (Auto) Lymph # (Auto) Andrews # (Auto) Eos # (Auto) Baso # (Auto) Seg Neutrophils % Seg Neuts % (Manual) Lymphocytes % (Manual) Seg Neutrophils # Seg Neutrophils # Man Lymphocytes # (Manual) D-Dimer ABG pH POC ABG pCO2 POC ABG pO2 ABG pO2 ABG HCO3 ABG O2 Saturation ABG Base Excess ABG Oxyhemoglobin ABG Sodium ABG Chloride ABG Glucose Oxyhemoglobin Carboxyhemoglobin Sodium Potassium Chloride Carbon Dioxide BUN Creatinine Glucose POC Glucose 132 H 169 H 242 H Hemoglobin A1c Magnesium Ferritin AST ALT Alkaline Phosphatase Lactate Dehydrogenase C-Reactive Protein Total Protein Albumin Arterial Blood Glucose Coronavirus (PCR) 07/07/21 07/08/21 07/08/21 21:41 08:09 12:20 WBC MCV MCH MCHC RDW Lymph % (Auto) Andrews % (Auto) Eos % (Auto) Lymph # (Auto) Andrews # (Auto) Eos # (Auto) Baso # (Auto) Seg Neutrophils % Seg Neuts % (Manual) Lymphocytes % (Manual) Seg Neutrophils # Seg Neutrophils # Man Lymphocytes # (Manual) D-Dimer ABG pH POC ABG pCO2 POC ABG pO2 ABG pO2 ABG HCO3 ABG O2 Saturation ABG Base Excess ABG Oxyhemoglobin ABG Sodium ABG Chloride ABG Glucose Oxyhemoglobin Carboxyhemoglobin Sodium Potassium Chloride Carbon Dioxide BUN Creatinine Glucose POC Glucose 128 H 132 H 179 H Hemoglobin A1c Magnesium Ferritin AST ALT Alkaline Phosphatase Lactate Dehydrogenase C-Reactive Protein Total Protein Albumin Arterial Blood Glucose Coronavirus (PCR) 07/08/21 07/08/21 07/08/21 16:37 21:45 22:44 WBC MCV MCH MCHC RDW Lymph % (Auto) Andrews % (Auto) Eos % (Auto) Lymph # (Auto) Andrews # (Auto) Eos # (Auto) Baso # (Auto) Seg Neutrophils % Seg Neuts % (Manual) Lymphocytes % (Manual) Seg Neutrophils # Seg Neutrophils # Man Lymphocytes # (Manual) D-Dimer ABG pH POC ABG pCO2 POC ABG pO2 ABG pO2 ABG HCO3 ABG O2 Saturation ABG Base Excess ABG Oxyhemoglobin ABG Sodium ABG Chloride ABG Glucose Oxyhemoglobin Carboxyhemoglobin Sodium Potassium Chloride Carbon Dioxide BUN Creatinine Glucose POC Glucose 192 H 51 L 137 H Hemoglobin A1c Magnesium Ferritin AST ALT Alkaline Phosphatase Lactate Dehydrogenase C-Reactive Protein Total Protein Albumin Arterial Blood Glucose Coronavirus (PCR) 07/09/21 07/09/21 07/09/21 04:45 04:45 04:45 WBC MCV MCH MCHC RDW 18.3 H Lymph % (Auto) Andrews % (Auto) Eos % (Auto) Lymph # (Auto) Andrews # (Auto) Eos # (Auto) Baso # (Auto) Seg Neutrophils % Seg Neuts % (Manual) 82.0 H Lymphocytes % (Manual) 13.0 L Seg Neutrophils # Seg Neutrophils # Man 7.8 H Lymphocytes # (Manual) D-Dimer 638.35 H ABG pH POC ABG pCO2 POC ABG pO2 ABG pO2 ABG HCO3 ABG O2 Saturation ABG Base Excess ABG Oxyhemoglobin ABG Sodium ABG Chloride ABG Glucose Oxyhemoglobin Carboxyhemoglobin Sodium Potassium Chloride 96.9 L Carbon Dioxide 35 H BUN Creatinine 0.2 L Glucose 135 H POC Glucose Hemoglobin A1c Magnesium Ferritin AST ALT Alkaline Phosphatase Lactate Dehydrogenase C-Reactive Protein 4.30 H Total Protein Albumin Arterial Blood Glucose Coronavirus (PCR) 07/09/21 07/09/21 07/09/21 05:19 07:36 11:16 WBC MCV MCH MCHC RDW Lymph % (Auto) Andrews % (Auto) Eos % (Auto) Lymph # (Auto) Andrews # (Auto) Eos # (Auto) Baso # (Auto) Seg Neutrophils % Seg Neuts % (Manual) Lymphocytes % (Manual) Seg Neutrophils # Seg Neutrophils # Man Lymphocytes # (Manual) D-Dimer ABG pH POC ABG pCO2 POC ABG pO2 ABG pO2 ABG HCO3 ABG O2 Saturation ABG Base Excess ABG Oxyhemoglobin ABG Sodium ABG Chloride ABG Glucose Oxyhemoglobin Carboxyhemoglobin Sodium Potassium Chloride Carbon Dioxide BUN Creatinine Glucose POC Glucose 135 H 148 H 212 H Hemoglobin A1c Magnesium Ferritin AST ALT Alkaline Phosphatase Lactate Dehydrogenase C-Reactive Protein Total Protein Albumin Arterial Blood Glucose Coronavirus (PCR) 07/09/21 07/09/21 07/10/21 15:21 21:12 05:40 WBC MCV MCH MCHC RDW Lymph % (Auto) Andrews % (Auto) Eos % (Auto) Lymph # (Auto) Andrews # (Auto) Eos # (Auto) Baso # (Auto) Seg Neutrophils % Seg Neuts % (Manual) Lymphocytes % (Manual) Seg Neutrophils # Seg Neutrophils # Man Lymphocytes # (Manual) D-Dimer ABG pH POC ABG pCO2 POC ABG pO2 ABG pO2 ABG HCO3 ABG O2 Saturation ABG Base Excess ABG Oxyhemoglobin ABG Sodium ABG Chloride ABG Glucose Oxyhemoglobin Carboxyhemoglobin Sodium Potassium 3.3 L Chloride 95.1 L Carbon Dioxide 39 H BUN Creatinine 0.2 L Glucose 122 H POC Glucose 128 H 196 H Hemoglobin A1c Magnesium Ferritin AST ALT Alkaline Phosphatase Lactate Dehydrogenase C-Reactive Protein Total Protein Albumin Arterial Blood Glucose Coronavirus (PCR) 07/10/21 07/10/21 07/10/21 07:38 11:15 16:29 WBC MCV MCH MCHC RDW Lymph % (Auto) Andrews % (Auto) Eos % (Auto) Lymph # (Auto) Andrews # (Auto) Eos # (Auto) Baso # (Auto) Seg Neutrophils % Seg Neuts % (Manual) Lymphocytes % (Manual) Seg Neutrophils # Seg Neutrophils # Man Lymphocytes # (Manual) D-Dimer ABG pH POC ABG pCO2 POC ABG pO2 ABG pO2 ABG HCO3 ABG O2 Saturation ABG Base Excess ABG Oxyhemoglobin ABG Sodium ABG Chloride ABG Glucose Oxyhemoglobin Carboxyhemoglobin Sodium Potassium Chloride Carbon Dioxide BUN Creatinine Glucose POC Glucose 128 H 175 H 174 H Hemoglobin A1c Magnesium Ferritin AST ALT Alkaline Phosphatase Lactate Dehydrogenase C-Reactive Protein Total Protein Albumin Arterial Blood Glucose Coronavirus (PCR) 07/10/21 07/11/21 07/11/21 20:49 05:50 12:08 WBC MCV MCH MCHC RDW Lymph % (Auto) Andrews % (Auto) Eos % (Auto) Lymph # (Auto) Andrews # (Auto) Eos # (Auto) Baso # (Auto) Seg Neutrophils % Seg Neuts % (Manual) Lymphocytes % (Manual) Seg Neutrophils # Seg Neutrophils # Man Lymphocytes # (Manual) D-Dimer ABG pH POC ABG pCO2 POC ABG pO2 ABG pO2 ABG HCO3 ABG O2 Saturation ABG Base Excess ABG Oxyhemoglobin ABG Sodium ABG Chloride ABG Glucose Oxyhemoglobin Carboxyhemoglobin Sodium Potassium Chloride 97.3 L Carbon Dioxide 34 H BUN Creatinine 0.2 L Glucose 109 H POC Glucose 142 H 220 H Hemoglobin A1c Magnesium Ferritin AST ALT Alkaline Phosphatase Lactate Dehydrogenase C-Reactive Protein Total Protein Albumin Arterial Blood Glucose Coronavirus (PCR) 07/11/21 07/11/21 07/12/21 17:09 21:55 07:36 WBC MCV MCH MCHC RDW Lymph % (Auto) Andrews % (Auto) Eos % (Auto) Lymph # (Auto) Andrews # (Auto) Eos # (Auto) Baso # (Auto) Seg Neutrophils % Seg Neuts % (Manual) Lymphocytes % (Manual) Seg Neutrophils # Seg Neutrophils # Man Lymphocytes # (Manual) D-Dimer ABG pH POC ABG pCO2 POC ABG pO2 ABG pO2 ABG HCO3 ABG O2 Saturation ABG Base Excess ABG Oxyhemoglobin ABG Sodium ABG Chloride ABG Glucose Oxyhemoglobin Carboxyhemoglobin Sodium Potassium Chloride Carbon Dioxide BUN Creatinine Glucose POC Glucose 219 H 124 H 114 H Hemoglobin A1c Magnesium Ferritin AST ALT Alkaline Phosphatase Lactate Dehydrogenase C-Reactive Protein Total Protein Albumin Arterial Blood Glucose Coronavirus (PCR) 07/12/21 07/12/21 07/12/21 11:08 15:43 22:20 WBC MCV MCH MCHC RDW Lymph % (Auto) Andrews % (Auto) Eos % (Auto) Lymph # (Auto) Andrews # (Auto) Eos # (Auto) Baso # (Auto) Seg Neutrophils % Seg Neuts % (Manual) Lymphocytes % (Manual) Seg Neutrophils # Seg Neutrophils # Man Lymphocytes # (Manual) D-Dimer ABG pH POC ABG pCO2 POC ABG pO2 ABG pO2 ABG HCO3 ABG O2 Saturation ABG Base Excess ABG Oxyhemoglobin ABG Sodium ABG Chloride ABG Glucose Oxyhemoglobin Carboxyhemoglobin Sodium Potassium Chloride Carbon Dioxide BUN Creatinine Glucose POC Glucose 195 H 276 H 189 H Hemoglobin A1c Magnesium Ferritin AST ALT Alkaline Phosphatase Lactate Dehydrogenase C-Reactive Protein Total Protein Albumin Arterial Blood Glucose Coronavirus (PCR) 07/13/21 07/13/21 07/13/21 08:01 08:08 10:17 WBC MCV MCH MCHC RDW Lymph % (Auto) Andrews % (Auto) Eos % (Auto) Lymph # (Auto) Andrews # (Auto) Eos # (Auto) Baso # (Auto) Seg Neutrophils % Seg Neuts % (Manual) Lymphocytes % (Manual) Seg Neutrophils # Seg Neutrophils # Man Lymphocytes # (Manual) D-Dimer ABG pH POC ABG pCO2 POC ABG pO2 ABG pO2 ABG HCO3 ABG O2 Saturation ABG Base Excess ABG Oxyhemoglobin ABG Sodium ABG Chloride ABG Glucose Oxyhemoglobin Carboxyhemoglobin Sodium Potassium Chloride 94.4 L Carbon Dioxide 34 H BUN Creatinine 0.3 L Glucose 149 H POC Glucose 132 H 265 H Hemoglobin A1c Magnesium Ferritin AST ALT Alkaline Phosphatase Lactate Dehydrogenase C-Reactive Protein Total Protein Albumin Arterial Blood Glucose Coronavirus (PCR) 07/13/21 07/13/21 07/14/21 17:58 21:41 07:34 WBC MCV MCH MCHC RDW Lymph % (Auto) Andrews % (Auto) Eos % (Auto) Lymph # (Auto) Andrews # (Auto) Eos # (Auto) Baso # (Auto) Seg Neutrophils % Seg Neuts % (Manual) Lymphocytes % (Manual) Seg Neutrophils # Seg Neutrophils # Man Lymphocytes # (Manual) D-Dimer ABG pH POC ABG pCO2 POC ABG pO2 ABG pO2 ABG HCO3 ABG O2 Saturation ABG Base Excess ABG Oxyhemoglobin ABG Sodium ABG Chloride ABG Glucose Oxyhemoglobin Carboxyhemoglobin Sodium Potassium Chloride Carbon Dioxide BUN Creatinine Glucose POC Glucose 217 H 223 H 116 H Hemoglobin A1c Magnesium Ferritin AST ALT Alkaline Phosphatase Lactate Dehydrogenase C-Reactive Protein Total Protein Albumin Arterial Blood Glucose Coronavirus (PCR) 07/14/21 07/14/21 07/14/21 10:50 17:33 20:51 WBC MCV MCH MCHC RDW Lymph % (Auto) Andrews % (Auto) Eos % (Auto) Lymph # (Auto) Andrews # (Auto) Eos # (Auto) Baso # (Auto) Seg Neutrophils % Seg Neuts % (Manual) Lymphocytes % (Manual) Seg Neutrophils # Seg Neutrophils # Man Lymphocytes # (Manual) D-Dimer ABG pH POC ABG pCO2 POC ABG pO2 ABG pO2 ABG HCO3 ABG O2 Saturation ABG Base Excess ABG Oxyhemoglobin ABG Sodium ABG Chloride ABG Glucose Oxyhemoglobin Carboxyhemoglobin Sodium Potassium Chloride Carbon Dioxide BUN Creatinine Glucose POC Glucose 191 H 173 H 132 H Hemoglobin A1c Magnesium Ferritin AST ALT Alkaline Phosphatase Lactate Dehydrogenase C-Reactive Protein Total Protein Albumin Arterial Blood Glucose Coronavirus (PCR) 07/15/21 07/15/21 07/15/21 04:00 07:59 12:31 WBC MCV MCH MCHC RDW Lymph % (Auto) Andrews % (Auto) Eos % (Auto) Lymph # (Auto) Andrews # (Auto) Eos # (Auto) Baso # (Auto) Seg Neutrophils % Seg Neuts % (Manual) Lymphocytes % (Manual) Seg Neutrophils # Seg Neutrophils # Man Lymphocytes # (Manual) D-Dimer ABG pH POC ABG pCO2 POC ABG pO2 ABG pO2 ABG HCO3 ABG O2 Saturation ABG Base Excess ABG Oxyhemoglobin ABG Sodium ABG Chloride ABG Glucose Oxyhemoglobin Carboxyhemoglobin Sodium Potassium Chloride 96.0 L Carbon Dioxide 32 H BUN Creatinine 0.3 L Glucose 208 H POC Glucose 117 H 195 H Hemoglobin A1c Magnesium Ferritin AST ALT Alkaline Phosphatase Lactate Dehydrogenase C-Reactive Protein Total Protein Albumin Arterial Blood Glucose Coronavirus (PCR) 07/15/21 07/15/21 07/16/21 18:00 20:57 04:40 WBC MCV MCH MCHC RDW 17.1 H Lymph % (Auto) Andrews % (Auto) Eos % (Auto) Lymph # (Auto) Andrews # (Auto) Eos # (Auto) Baso # (Auto) Seg Neutrophils % Seg Neuts % (Manual) Lymphocytes % (Manual) Seg Neutrophils # Seg Neutrophils # Man Lymphocytes # (Manual) D-Dimer ABG pH POC ABG pCO2 POC ABG pO2 ABG pO2 ABG HCO3 ABG O2 Saturation ABG Base Excess ABG Oxyhemoglobin ABG Sodium ABG Chloride ABG Glucose Oxyhemoglobin Carboxyhemoglobin Sodium Potassium Chloride Carbon Dioxide BUN Creatinine Glucose POC Glucose 217 H 111 H Hemoglobin A1c Magnesium Ferritin AST ALT Alkaline Phosphatase Lactate Dehydrogenase C-Reactive Protein Total Protein Albumin Arterial Blood Glucose Coronavirus (PCR) 07/16/21 07/16/21 07/16/21 04:40 07:08 11:11 WBC MCV MCH MCHC RDW Lymph % (Auto) Andrews % (Auto) Eos % (Auto) Lymph # (Auto) Andrews # (Auto) Eos # (Auto) Baso # (Auto) Seg Neutrophils % Seg Neuts % (Manual) Lymphocytes % (Manual) Seg Neutrophils # Seg Neutrophils # Man Lymphocytes # (Manual) D-Dimer ABG pH POC ABG pCO2 POC ABG pO2 ABG pO2 ABG HCO3 ABG O2 Saturation ABG Base Excess ABG Oxyhemoglobin ABG Sodium ABG Chloride ABG Glucose Oxyhemoglobin Carboxyhemoglobin Sodium Potassium 3.4 L Chloride 94.6 L Carbon Dioxide 36 H BUN Creatinine < 0.2 L Glucose 101 H POC Glucose 118 H 184 H Hemoglobin A1c Magnesium Ferritin AST ALT Alkaline Phosphatase Lactate Dehydrogenase C-Reactive Protein Total Protein Albumin Arterial Blood Glucose Coronavirus (PCR) 07/16/21 07/16/21 07/17/21 17:29 22:01 08:10 WBC MCV MCH MCHC RDW Lymph % (Auto) Andrews % (Auto) Eos % (Auto) Lymph # (Auto) Andrews # (Auto) Eos # (Auto) Baso # (Auto) Seg Neutrophils % Seg Neuts % (Manual) Lymphocytes % (Manual) Seg Neutrophils # Seg Neutrophils # Man Lymphocytes # (Manual) D-Dimer ABG pH POC ABG pCO2 POC ABG pO2 ABG pO2 ABG HCO3 ABG O2 Saturation ABG Base Excess ABG Oxyhemoglobin ABG Sodium ABG Chloride ABG Glucose Oxyhemoglobin Carboxyhemoglobin Sodium Potassium Chloride Carbon Dioxide BUN Creatinine Glucose POC Glucose 200 H 147 H 118 H Hemoglobin A1c Magnesium Ferritin AST ALT Alkaline Phosphatase Lactate Dehydrogenase C-Reactive Protein Total Protein Albumin Arterial Blood Glucose Coronavirus (PCR) 07/17/21 07/17/21 07/17/21 11:38 16:24 21:13 WBC MCV MCH MCHC RDW Lymph % (Auto) Andrews % (Auto) Eos % (Auto) Lymph # (Auto) Andrews # (Auto) Eos # (Auto) Baso # (Auto) Seg Neutrophils % Seg Neuts % (Manual) Lymphocytes % (Manual) Seg Neutrophils # Seg Neutrophils # Man Lymphocytes # (Manual) D-Dimer ABG pH POC ABG pCO2 POC ABG pO2 ABG pO2 ABG HCO3 ABG O2 Saturation ABG Base Excess ABG Oxyhemoglobin ABG Sodium ABG Chloride ABG Glucose Oxyhemoglobin Carboxyhemoglobin Sodium Potassium Chloride Carbon Dioxide BUN Creatinine Glucose POC Glucose 151 H 268 H 115 H Hemoglobin A1c Magnesium Ferritin AST ALT Alkaline Phosphatase Lactate Dehydrogenase C-Reactive Protein Total Protein Albumin Arterial Blood Glucose Coronavirus (PCR) 07/18/21 07/18/21 07/18/21 07:58 12:29 20:24 WBC MCV MCH MCHC RDW Lymph % (Auto) Andrews % (Auto) Eos % (Auto) Lymph # (Auto) Andrews # (Auto) Eos # (Auto) Baso # (Auto) Seg Neutrophils % Seg Neuts % (Manual) Lymphocytes % (Manual) Seg Neutrophils # Seg Neutrophils # Man Lymphocytes # (Manual) D-Dimer ABG pH POC ABG pCO2 POC ABG pO2 ABG pO2 ABG HCO3 ABG O2 Saturation ABG Base Excess ABG Oxyhemoglobin ABG Sodium ABG Chloride ABG Glucose Oxyhemoglobin Carboxyhemoglobin Sodium Potassium Chloride Carbon Dioxide BUN Creatinine Glucose POC Glucose 135 H 139 H 130 H Hemoglobin A1c Magnesium Ferritin AST ALT Alkaline Phosphatase Lactate Dehydrogenase C-Reactive Protein Total Protein Albumin Arterial Blood Glucose Coronavirus (PCR) 07/19/21 07/19/21 07/19/21 06:55 06:55 07:54 WBC 14.5 H MCV MCH MCHC RDW 17.3 H Lymph % (Auto) 9.6 L Andrews % (Auto) Eos % (Auto) Lymph # (Auto) Andrews # (Auto) Eos # (Auto) 0.6 H Baso # (Auto) Seg Neutrophils % 80.3 H Seg Neuts % (Manual) Lymphocytes % (Manual) Seg Neutrophils # 11.7 H Seg Neutrophils # Man Lymphocytes # (Manual) D-Dimer ABG pH POC ABG pCO2 67.9 H POC ABG pO2 131.0 H ABG pO2 ABG HCO3 ABG O2 Saturation ABG Base Excess ABG Oxyhemoglobin ABG Sodium ABG Chloride 97.0 L ABG Glucose 133 H Oxyhemoglobin Carboxyhemoglobin Sodium Potassium Chloride 95.3 L Carbon Dioxide 35 H BUN Creatinine < 0.2 L Glucose 138 H POC Glucose Hemoglobin A1c Magnesium Ferritin AST ALT Alkaline Phosphatase Lactate Dehydrogenase C-Reactive Protein Total Protein Albumin Arterial Blood Glucose 133 H Coronavirus (PCR) 07/19/21 07/19/21 07/19/21 08:10 11:43 17:04 WBC MCV MCH MCHC RDW Lymph % (Auto) Andrews % (Auto) Eos % (Auto) Lymph # (Auto) Andrews # (Auto) Eos # (Auto) Baso # (Auto) Seg Neutrophils % Seg Neuts % (Manual) Lymphocytes % (Manual) Seg Neutrophils # Seg Neutrophils # Man Lymphocytes # (Manual) D-Dimer ABG pH POC ABG pCO2 POC ABG pO2 ABG pO2 ABG HCO3 ABG O2 Saturation ABG Base Excess ABG Oxyhemoglobin ABG Sodium ABG Chloride ABG Glucose Oxyhemoglobin Carboxyhemoglobin Sodium Potassium Chloride Carbon Dioxide BUN Creatinine Glucose POC Glucose 129 H 126 H 108 H Hemoglobin A1c Magnesium Ferritin AST ALT Alkaline Phosphatase Lactate Dehydrogenase C-Reactive Protein Total Protein Albumin Arterial Blood Glucose Coronavirus (PCR) 07/19/21 07/20/21 07/20/21 21:10 04:00 04:00 WBC MCV MCH MCHC RDW 17.0 H Lymph % (Auto) Andrews % (Auto) 8.9 H Eos % (Auto) 6.3 H Lymph # (Auto) Andrews # (Auto) 0.9 H Eos # (Auto) 0.6 H Baso # (Auto) Seg Neutrophils % 70.2 H Seg Neuts % (Manual) Lymphocytes % (Manual) Seg Neutrophils # Seg Neutrophils # Man Lymphocytes # (Manual) D-Dimer ABG pH POC ABG pCO2 POC ABG pO2 ABG pO2 ABG HCO3 ABG O2 Saturation ABG Base Excess ABG Oxyhemoglobin ABG Sodium ABG Chloride ABG Glucose Oxyhemoglobin Carboxyhemoglobin Sodium Potassium Chloride 96.7 L Carbon Dioxide 36 H BUN Creatinine 0.2 L Glucose 102 H POC Glucose 109 H Hemoglobin A1c Magnesium Ferritin AST ALT Alkaline Phosphatase Lactate Dehydrogenase C-Reactive Protein Total Protein Albumin 3.2 L Arterial Blood Glucose Coronavirus (PCR) 07/20/21 07/20/21 07/20/21 11:15 15:34 17:01 WBC MCV MCH MCHC RDW Lymph % (Auto) Andrews % (Auto) Eos % (Auto) Lymph # (Auto) Andrews # (Auto) Eos # (Auto) Baso # (Auto) Seg Neutrophils % Seg Neuts % (Manual) Lymphocytes % (Manual) Seg Neutrophils # Seg Neutrophils # Man Lymphocytes # (Manual) D-Dimer ABG pH POC ABG pCO2 POC ABG pO2 ABG pO2 ABG HCO3 ABG O2 Saturation ABG Base Excess ABG Oxyhemoglobin ABG Sodium ABG Chloride ABG Glucose Oxyhemoglobin Carboxyhemoglobin Sodium Potassium Chloride Carbon Dioxide BUN Creatinine Glucose POC Glucose 109 H 152 H 125 H Hemoglobin A1c Magnesium Ferritin AST ALT Alkaline Phosphatase Lactate Dehydrogenase C-Reactive Protein Total Protein Albumin Arterial Blood Glucose Coronavirus (PCR) 07/20/21 07/21/21 07/21/21 21:00 04:48 04:48 WBC 12.8 H MCV MCH MCHC RDW 16.8 H Lymph % (Auto) 9.3 L Andrews % (Auto) Eos % (Auto) Lymph # (Auto) Andrews # (Auto) 0.9 H Eos # (Auto) Baso # (Auto) Seg Neutrophils % 81.1 H Seg Neuts % (Manual) Lymphocytes % (Manual) Seg Neutrophils # 10.4 H Seg Neutrophils # Man Lymphocytes # (Manual) D-Dimer ABG pH POC ABG pCO2 POC ABG pO2 ABG pO2 ABG HCO3 ABG O2 Saturation ABG Base Excess ABG Oxyhemoglobin ABG Sodium ABG Chloride ABG Glucose Oxyhemoglobin Carboxyhemoglobin Sodium Potassium Chloride 95.4 L Carbon Dioxide 33 H BUN 6 L Creatinine < 0.2 L Glucose 155 H POC Glucose 211 H Hemoglobin A1c Magnesium 1.60 L Ferritin AST ALT Alkaline Phosphatase Lactate Dehydrogenase C-Reactive Protein Total Protein Albumin Arterial Blood Glucose Coronavirus (PCR) 07/21/21 07/21/21 07/21/21 07:52 11:05 17:01 WBC MCV MCH MCHC RDW Lymph % (Auto) Andrews % (Auto) Eos % (Auto) Lymph # (Auto) Andrews # (Auto) Eos # (Auto) Baso # (Auto) Seg Neutrophils % Seg Neuts % (Manual) Lymphocytes % (Manual) Seg Neutrophils # Seg Neutrophils # Man Lymphocytes # (Manual) D-Dimer ABG pH POC ABG pCO2 POC ABG pO2 ABG pO2 ABG HCO3 ABG O2 Saturation ABG Base Excess ABG Oxyhemoglobin ABG Sodium ABG Chloride ABG Glucose Oxyhemoglobin Carboxyhemoglobin Sodium Potassium Chloride Carbon Dioxide BUN Creatinine Glucose POC Glucose 116 H 207 H 133 H Hemoglobin A1c Magnesium Ferritin AST ALT Alkaline Phosphatase Lactate Dehydrogenase C-Reactive Protein Total Protein Albumin Arterial Blood Glucose Coronavirus (PCR) 07/21/21 07/22/21 07/22/21 21:17 07:55 07:55 WBC MCV MCH MCHC RDW 16.5 H Lymph % (Auto) Andrews % (Auto) 8.6 H Eos % (Auto) Lymph # (Auto) Andrews # (Auto) Eos # (Auto) Baso # (Auto) Seg Neutrophils % 72.3 H Seg Neuts % (Manual) Lymphocytes % (Manual) Seg Neutrophils # Seg Neutrophils # Man Lymphocytes # (Manual) D-Dimer ABG pH POC ABG pCO2 POC ABG pO2 ABG pO2 ABG HCO3 ABG O2 Saturation ABG Base Excess ABG Oxyhemoglobin ABG Sodium ABG Chloride ABG Glucose Oxyhemoglobin Carboxyhemoglobin Sodium Potassium Chloride 94.6 L Carbon Dioxide 42 H* D BUN 5 L Creatinine < 0.2 L Glucose POC Glucose 152 H Hemoglobin A1c Magnesium Ferritin AST ALT Alkaline Phosphatase Lactate Dehydrogenase C-Reactive Protein Total Protein Albumin Arterial Blood Glucose Coronavirus (PCR) 07/22/21 07/22/21 07/22/21 11:25 12:05 15:40 WBC MCV MCH MCHC RDW Lymph % (Auto) Andrews % (Auto) Eos % (Auto) Lymph # (Auto) Andrews # (Auto) Eos # (Auto) Baso # (Auto) Seg Neutrophils % Seg Neuts % (Manual) Lymphocytes % (Manual) Seg Neutrophils # Seg Neutrophils # Man Lymphocytes # (Manual) D-Dimer ABG pH 7.338 L POC ABG pCO2 POC ABG pO2 ABG pO2 66.1 L ABG HCO3 45.0 H ABG O2 Saturation 94.2 L ABG Base Excess 15.2 H ABG Oxyhemoglobin ABG Sodium ABG Chloride ABG Glucose Oxyhemoglobin 91.9 L Carboxyhemoglobin Sodium Potassium Chloride Carbon Dioxide BUN Creatinine Glucose POC Glucose 146 H 219 H Hemoglobin A1c Magnesium Ferritin AST ALT Alkaline Phosphatase Lactate Dehydrogenase C-Reactive Protein Total Protein Albumin Arterial Blood Glucose Coronavirus (PCR) 07/22/21 07/23/21 07/23/21 21:26 04:35 04:35 WBC MCV 98 H MCH MCHC RDW 16.2 H Lymph % (Auto) 7.9 L Andrews % (Auto) Eos % (Auto) Lymph # (Auto) 0.9 L Andrews # (Auto) Eos # (Auto) Baso # (Auto) Seg Neutrophils % 85.3 H Seg Neuts % (Manual) Lymphocytes % (Manual) Seg Neutrophils # 9.2 H Seg Neutrophils # Man Lymphocytes # (Manual) D-Dimer ABG pH POC ABG pCO2 POC ABG pO2 ABG pO2 ABG HCO3 ABG O2 Saturation ABG Base Excess ABG Oxyhemoglobin ABG Sodium ABG Chloride ABG Glucose Oxyhemoglobin Carboxyhemoglobin Sodium Potassium Chloride 93.9 L Carbon Dioxide 44 H* BUN Creatinine < 0.2 L Glucose 149 H POC Glucose 131 H Hemoglobin A1c Magnesium Ferritin AST ALT Alkaline Phosphatase Lactate Dehydrogenase C-Reactive Protein Total Protein Albumin Arterial Blood Glucose Coronavirus (PCR) 07/23/21 07/23/21 07:20 11:34 WBC MCV MCH MCHC RDW Lymph % (Auto) Andrews % (Auto) Eos % (Auto) Lymph # (Auto) Andrews # (Auto) Eos # (Auto) Baso # (Auto) Seg Neutrophils % Seg Neuts % (Manual) Lymphocytes % (Manual) Seg Neutrophils # Seg Neutrophils # Man Lymphocytes # (Manual) D-Dimer ABG pH POC ABG pCO2 POC ABG pO2 ABG pO2 ABG HCO3 ABG O2 Saturation ABG Base Excess ABG Oxyhemoglobin ABG Sodium ABG Chloride ABG Glucose Oxyhemoglobin Carboxyhemoglobin Sodium Potassium Chloride Carbon Dioxide BUN Creatinine Glucose POC Glucose 116 H 172 H Hemoglobin A1c Magnesium Ferritin AST ALT Alkaline Phosphatase Lactate Dehydrogenase C-Reactive Protein Total Protein Albumin Arterial Blood Glucose Coronavirus (PCR)
[2021-07-23] MEDS: ACETAMINOPHEN 325 MG TAB PO PRN (21:07)
[2021-07-23] MEDS: ENOXAPARIN 40 MG/0.4 ML INJ SUB-Q SCH (21:07)
[2021-07-24 04:46] LABS: Blood Urea Nitrogen 11 mg/dL (7-17); Calcium 9.3 mg/dL (8.4-10.2); Hemolysis Index 3
[2021-07-24 05:11] LABS: BUN/Creatinine Ratio 55
--- NOTE | 2021-07-24 08:27 | Progress Note ---
Assessment and Plan Assessment and plan: #Acute hypoxic/hypercapneic respiratory failure #Severe ARDS -Currently on high flow nasal cannula -BiPAP at night as tolerated -Low threshold for intubation as patient is persistently tachypneic and tachycardic -s/p prednisone taper -Pulmonology following, assistance appreciated -Referral sent for LTACH, patient declined x3 -given 1 dose of lasix today -encouraged prone positioning -ABG showed CO2 of 78.3, P/F 81 indicating severe ARDS #Metabolic alkalosis -Bicarbonate 42 -Patient received multiple doses of Lasix over course of hospital stay but may be 2/2 to compensation for hypercapneia #Heart failure with preserved ejection fraction -TTE: LVEF 55-60% with diastolic dysfunction -will continue to monitor for signs of fluid overload #COVID-19 infection -Continue Covid vitamins #Type 2 diabetes -continue Lantus 15 units daily and sliding scale insulin #Dysuria #Possible UTI -s/p levaquin #Anxiety -Stable -continue Xanax #DVT prophylaxis -Lovenox 40 daily #Deconditioning -Will benefit from SNF after prolonged hospital stay Resolved issues #Sepsis secondary to COVID-19 #Iatrogenic diarrhea #Hypomagnesemia #Hyponatremia #Protein calorie malnutrition Disposition Plan: Continue medical management Total Time Spent with Patient (Minutes): 30 minutes History Interval history: No acute events overnight. On HFNC. Tolerated BiPAP overnight. She reports feeling "not good". She has been feeling anxious whenever they remove the non- rebreather mask. Hospitalist Physical - Physical exam Narrative exam: GENERAL: Well-developed well-nourished. Lying in bed in no acute distress. HEENT: High flow nasal cannula at 40L/100% CHEST/LUNGS: Coarse breath sounds bilaterally. HEART/CARDIOVASCULAR: Tachycardic. No murmur, rubs or gallops appreciated. ABDOMEN: +BS. NT/ND. PSYCH: Cooperative. - Constitutional Vitals: Temp Pulse Resp BP Pulse Ox 97 F L 102 H 38 H 129/74 97 07/24/21 03:45 07/24/21 06:00 07/24/21 06:00 07/24/21 06:00 07/24/21 06:00 General appearance: Present: no acute distress, well-nourished, obese, other (Looks tired) Results - Labs CBC & Chem 7: 07/23/21 04:35 07/24/21 04:10 Labs: Laboratory Last Values WBC 10.8 K/mm3 (4.5-11.0) 07/23/21 04:35 RBC 3.84 M/mm3 (3.65-5.03) 07/23/21 04:35 Hgb 12.1 gm/dl (10.1-14.3) 07/23/21 04:35 Hct 37.6 % (30.3-42.9) 07/23/21 04:35 MCV 98 fl (79-97) H 07/23/21 04:35 MCH 32 pg (28-32) 07/23/21 04:35 MCHC 32 % (30-34) 07/23/21 04:35 RDW 16.2 % (13.2-15.2) H 07/23/21 04:35 Plt Count 367 K/mm3 (140-440) 07/23/21 04:35 Lymph % (Auto) 7.9 % (13.4-35.0) L 07/23/21 04:35 [place] % (Auto) 5.6 % (0.0-7.3) 07/23/21 04:35 Eos % (Auto) 0.8 % (0.0-4.3) 07/23/21 04:35 Baso % (Auto) 0.4 % (0.0-1.8) 07/23/21 04:35 Lymph # (Auto) 0.9 K/mm3 (1.2-5.4) L 07/23/21 04:35 [place] # (Auto) 0.6 K/mm3 (0.0-0.8) 07/23/21 04:35 Eos # (Auto) 0.1 K/mm3 (0.0-0.4) 07/23/21 04:35 Baso # (Auto) 0.0 K/mm3 (0.0-0.1) 07/23/21 04:35 Add Manual Diff Complete 07/09/21 04:45 Total Counted 100 07/09/21 04:45 Seg Neutrophils % 85.3 % (40.0-70.0) H 07/23/21 04:35 Seg Neuts % (Manual) 82.0 % (40.0-70.0) H 07/09/21 04:45 Band Neutrophils % 1.0 % 05/12/21 04:05 Lymphocytes % (Manual) 13.0 % (13.4-35.0) L 07/09/21 04:45 Monocytes % (Manual) 3.0 % (0.0-7.3) 07/09/21 04:45 Eosinophils % (Manual) 2.0 % (0.0-4.3) 07/09/21 04:45 Nucleated RBC % Not Reportable 07/09/21 04:45 Seg Neutrophils # 9.2 K/mm3 (1.8-7.7) H 07/23/21 04:35 Seg Neutrophils # Man 7.8 K/mm3 (1.8-7.7) H 07/09/21 04:45 Band Neutrophils # 0.0 K/mm3 07/09/21 04:45 Lymphocytes # (Manual) 1.2 K/mm3 (1.2-5.4) 07/09/21 04:45 Abs React Lymphs (Man) 0.0 K/mm3 07/09/21 04:45 Monocytes # (Manual) 0.3 K/mm3 (0.0-0.8) 07/09/21 04:45 Eosinophils # (Manual) 0.2 K/mm3 (0.0-0.4) 07/09/21 04:45 Basophils # (Manual) 0.0 K/mm3 (0.0-0.1) 07/09/21 04:45 Metamyelocytes # 0.0 K/mm3 07/09/21 04:45 Myelocytes # 0.0 K/mm3 07/09/21 04:45 Promyelocytes # 0.0 K/mm3 07/09/21 04:45 Blast Cells # 0.0 K/mm3 07/09/21 04:45 WBC Morphology Not Reportable 07/09/21 04:45 Hypersegmented Neuts Not Reportable 07/09/21 04:45 Hyposegmented Neuts Not Reportable 07/09/21 04:45 Hypogranular Neuts Not Reportable 07/09/21 04:45 Smudge Cells Not Reportable 07/09/21 04:45 Toxic Granulation Not Reportable 07/09/21 04:45 Toxic Vacuolation Not Reportable 07/09/21 04:45 Dohle Bodies Not Reportable 07/09/21 04:45 Pelger-Huet Anomaly Not Reportable 07/09/21 04:45 Janelle Rods Not Reportable 07/09/21 04:45 Platelet Estimate Consistent w auto 07/09/21 04:45 Clumped Platelets Not Reportable 07/09/21 04:45 Plt Clumps, EDTA Not Reportable 07/09/21 04:45 Large Platelets Not Reportable 07/09/21 04:45 Giant Platelets Rare 07/09/21 04:45 Platelet Satelliting Not Reportable 07/09/21 04:45 Plt Morphology Comment Not Reportable 07/09/21 04:45 RBC Morphology Not Reportable 07/09/21 04:45 Dimorphic RBCs Not Reportable 07/09/21 04:45 Polychromasia Not Reportable 07/09/21 04:45 Hypochromasia Few 07/09/21 04:45 Poikilocytosis Not Reportable 07/09/21 04:45 Anisocytosis Not Reportable 07/09/21 04:45 Microcytosis Not Reportable 07/09/21 04:45 Macrocytosis Not Reportable 07/09/21 04:45 Spherocytes Not Reportable 07/09/21 04:45 Pappenheimer Bodies Not Reportable 07/09/21 04:45 Sickle Cells Not Reportable 07/09/21 04:45 Target Cells Not Reportable 07/09/21 04:45 Tear Drop Cells Not Reportable 07/09/21 04:45 Ovalocytes Not Reportable 07/09/21 04:45 Stomatocytes 1+ 07/09/21 04:45 Helmet Cells Not Reportable 07/09/21 04:45 [place] Bodies Not Reportable 07/09/21 04:45 [place] Rings Not Reportable 07/09/21 04:45 Crow Cells Not Reportable 07/09/21 04:45 Bite Cells Not Reportable 07/09/21 04:45 Crenated Cell Not Reportable 07/09/21 04:45 Elliptocytes Not Reportable 07/09/21 04:45 Acanthocytes (Spur) Not Reportable 07/09/21 04:45 Rouleaux Not Reportable 07/09/21 04:45 Hemoglobin C Crystals Not Reportable 07/09/21 04:45 Schistocytes Not Reportable 07/09/21 04:45 Malaria parasites Not Reportable 07/09/21 04:45 Justin Bodies Not Reportable 07/09/21 04:45 Hem Pathologist Commnt No 07/09/21 04:45 D-Dimer 638.35 ng/mlDDU (0-234) H 07/09/21 04:45 ABG pH 7.417 (7.320-7.450) 07/23/21 18:11 POC ABG pCO2 78.3 mmHg (32.0-48.0) H 07/23/21 18:11 ABG pCO2 85.7 mm Hg 07/22/21 12:05 POC ABG pO2 80.7 mmHg (83-108) L 07/23/21 18:11 ABG pO2 66.1 mm Hg (80.0-90.0) L 07/22/21 12:05 POC ABG HCO3 49.3 07/23/21 18:11 ABG HCO3 45.0 mmol/L (20.0-26.0) H 07/22/21 12:05 ABG O2 Saturation 96.7 (0-100) 07/23/21 18:11 ABG O2 Content 16.8 (0.0-44) 07/22/21 12:05 POC ABG Base Excess 20.5 07/23/21 18:11 ABG Base Excess 15.2 mmol/L (-2.0-3.0) H 07/22/21 12:05 ABG Hemoglobin 12.6 (12.0-17.5) 07/23/21 18:11 ABG Oxyhemoglobin 95.7 (94-98) 07/23/21 18:11 ABG Carboxyhemoglobin 1.9 % (0.0-5.0) 07/22/21 12:05 ABG Methemoglobin 0.3 (0.0-1.5) 07/23/21 18:11 ABG Sodium 134.9 mmol/L (136.0-145.0) L 07/23/21 18:11 ABG Potassium 3.9 mmol/L (3.40-4.50) 07/23/21 18:11 ABG Chloride 89.0 mmol/L (98-107) L 07/23/21 18:11 ABG Glucose 200 mg/dL (65-95) H 07/23/21 18:11 Oxyhemoglobin 91.9 % (95.0-99.0) L 07/22/21 12:05 Carboxyhemoglobin 0.7 (0.5-1.5) 07/23/21 18:11 FiO2 100 % 07/22/21 12:05 FiO2 % 100.0 07/23/21 18:11 Sodium 141 mmol/L (137-145) 07/24/21 04:10 Potassium 3.5 mmol/L (3.6-5.0) L D 07/24/21 04:10 Chloride 92.4 mmol/L (98-107) L 07/24/21 04:10 Carbon Dioxide 42 mmol/L (22-30) H* 07/24/21 04:10 Anion Gap 10 mmol/L 07/24/21 04:10 BUN 11 mg/dL (7-17) 07/24/21 04:10 Creatinine < 0.2 mg/dL (0.6-1.2) L 07/24/21 04:10 Estimated GFR > 60 ml/min 07/24/21 04:10 BUN/Creatinine Ratio 55 % 07/24/21 04:10 Glucose 123 mg/dL (65-100) H 07/24/21 04:10 POC Glucose 97 mg/dL (70-105) 07/24/21 08:22 Hemoglobin A1c 8.5 % (4-6) H 04/18/21 07:36 Calcium 9.3 mg/dL (8.4-10.2) 07/24/21 04:10 Phosphorus 3.70 mg/dL (2.5-4.5) 07/23/21 04:35 Magnesium 2.10 mg/dL (1.7-2.3) 07/23/21 04:35 Ferritin 155.9 ng/mL (10.0-200.0) 07/09/21 04:45 Total Bilirubin 0.20 mg/dL (0.1-1.2) 07/20/21 04:00 AST 18 units/L (5-40) 07/20/21 04:00 ALT 40 units/L (7-56) 07/20/21 04:00 Alkaline Phosphatase 70 units/L (35-129) 07/20/21 04:00 Lactate Dehydrogenase 475 units/L (91-180) H 06/05/21 05:26 C-Reactive Protein 4.30 mg/dL (0.00-1.30) H 07/09/21 04:45 NT-Pro-B Natriuret Pep 59.45 pg/mL (0-450) 07/07/21 13:40 Total Protein 7.1 g/dL (6.3-8.2) 07/20/21 04:00 Albumin 3.2 g/dL (3.9-5) L 07/20/21 04:00 Albumin/Globulin Ratio 0.8 % 07/20/21 04:00 Triglycerides < 9 mg/dL (2-149) 05/03/21 04:30 Procalcitonin < 0.05 ng/mL (<0.15) 05/23/21 09:50 Arterial Blood Glucose 200 mg/dL (65-95) H 07/23/21 18:11 Arterial Blood Ionized Calcium 4.6 mg/dL (4.6-5.3) 07/23/21 18:11 Coronavirus (PCR) Positive (Negative) A 06/05/21 08:30 Amos/IV: Voiding Method External Female Catheter Active Medications - Current Medications Current Medications: Generic Name Dose Route Start Last Admin Trade Name Freq PRN Reason Stop Dose Admin Acetaminophen 650 mg 07/02/21 17:48 07/23/21 21:07 Acetaminophen 325 Mg Tab PO 650 mg Q4H PRN Administration Pain, Mild (1-3) Albuterol 2.5 mg 04/16/21 13:39 04/21/21 20:39 Albuterol 2.5 Mg/3 Ml Nebu IH 2.5 mg Q4HRT PRN Administration Shortness Of Breath Alprazolam 2 mg 07/04/21 12:00 07/23/21 21:07 Alprazolam 1 Mg Tab PO 2 mg BID TUTU Administration Cholecalciferol 1,000 unit 04/17/21 10:00 07/23/21 09:51 Cholecalciferol (Vit D3) 1000 Unit (25 Mcg) Tab PO 1,000 unit QDAY TUTU Administration Enoxaparin Sodium 40 mg 05/19/21 22:00 07/23/21 21:07 Enoxaparin 40 Mg/0.4 Ml Inj SUB-Q 40 mg QDAY@2200 [facility] Administration Protocol Ibuprofen 600 mg 07/11/21 11:00 07/22/21 11:38 Ibuprofen 600 Mg Tab PO 600 mg Q6H PRN Administration Ear Pain Insulin Glargine 15 units 06/25/21 10:00 07/23/21 09:52 Insulin Glargine 100 Units/Ml SUB-Q 15 units DAILY TUTU Administration Insulin Human Lispro 0 unit 05/18/21 12:00 07/23/21 21:35 Insulin Lispro 100 Unit/Ml SUB-Q Not Given ACHS [facility] Protocol Ondansetron HCl 4 mg 04/16/21 14:00 05/30/21 10:07 Ondansetron 4 Mg/2 Ml Inj IV 4 mg Q8H PRN Administration Nausea And Vomiting Polyethylene Glycol 17 gm 07/16/21 20:00 Polyethylene Glycol 3350 17 Gm Powder PO QDAY PRN Constipation Sodium Chloride 10 ml 04/16/21 13:39 07/15/21 21:07 Sodium Chloride 0.9% 10 Ml Flush Syringe IV 10 ml PRN PRN Administration LINE FLUSH Zinc Sulfate 220 mg 04/16/21 22:00 07/23/21 21:07 Zinc Sulfate 220 Mg Cap PO 220 mg BID TUTU Administration Zolpidem Tartrate 10 mg 05/26/21 08:56 07/20/21 21:08 Zolpidem 5 Mg Tab PO 10 mg QHS PRN Administration Insomnia Nutrition/Malnutrition Assess - Dietary Evaluation Nutrition/Malnutrition Findings: Nutrition Notes Start: 04/23/21 07:41 Freq: Status: Active Protocol: Document 07/03/21 16:54 GB (Rec: 07/03/21 17:11 GB [id number]) Nutrition Notes Initial or Follow up Reassessment Current Diagnosis Respiratory Failure Other Pertinent Diagnosis oral thrush, COVID-19 pneu Current Diet consistent carbohydrate Labs/Tests 07/03: creatinine 0.3, K 3.2 Pertinent Medications Vit C, Vit D3, D5 (PRN), Prednisone, NaCl, Zn Sulfate Height 4 ft 11.84 in Weight 60.3 kg [place] Body Weight (kg) 45.09 BMI 26.1 Weight change and time frame 04/16/21: 74.843kg 05/17/21: 68.1kg 06/16/21: 60.3kg change of -14.54kg for -19.43% in 60 days. Per MD note: pt has been diuresed thorughout stay. Weight Status Overweight Subjective/Other Information MD notes 07/03: pt showing improvement, prednisone weaning down, possible weaning of O2. Last BM: 07/02 PO intake recorded at 50-100% Percent of energy/protein needs met: PO intake of meals meet 75% or greater of EEN Burn Absent Trauma Absent GI Symptoms None Food Allergy No Skin Integrity/Comment skin tear rt/lt buttocks Current % PO Good (75-100%) Minimum of two criteria No #3 Nutrition Diagnosis No nutrition diagnosis at this time Etiology respiratory failure As Evidenced by Signs and Symptoms recovering, good po, weight loss r/t diurese therapy #2 Nutrition Diagnosis Malnutrition Comments: Wt loss due to diurese for most of stay. PO intake is recorded at 75- 100% Etiology acute illness As Evidenced by Signs and Symptoms <50% EER in >5 days, >5% wt loss in 1 month Diagnosis Progress(for reassessment Resolved documentation) #1 Nutrition Diagnosis Inadequate oral intake Etiology ARF As Evidenced by Signs and Symptoms pt continues to meet 100%/93% of kcal/protein needs Diagnosis Progress(for reassessment Resolved documentation) Is patient on ventilator? No Is Patient Ambulatory and/or Out of Bed Yes REE-([place]-St. Jeor-ambulatory/OOB) [ 1491.022 [id number]] Kcal/Kg value to use for calculation 25 Approximate Energy Requirements Using 1508 kcal/Kg Calculation Used for Recommendations Kcal/kg Additional Notes Pro needs 1-1.2g/kg @ 60k -72g/day Fluid needs 1ml/kcal or per MD Nutrition Intervention Change Diet Order: continue Nutrition Support: n/a Add Supplement/Snack (indicate name/kcal n/a /protein ) Goal #1 PO intake of meals to be 75% or greater daily for LOS Goal #2 Weight to stabilize +/-3% current weight for LOS Follow-Up By: 08/07/21 Additional Comments f/u: po intake, weight
--- NOTE | 2021-07-24 08:58 | Progress Note ---
Assessment and Plan - Patient Problems (1) Pneumonia due to SARS-associated coronavirus Current Visit: Yes Status: Acute (2) Acute hypoxemic respiratory failure Current Visit: Yes Status: Acute (3) Obesity hypoventilation syndrome Current Visit: Yes Status: Acute (4) Pneumonia Current Visit: Yes Status: Acute Qualifiers: Aspiration pneumonia type: unspecified Laterality: unspecified laterality Lung location: unspecified part of lung (5) Transaminitis Current Visit: No Status: Acute (6) Oral thrush Current Visit: Yes Status: Acute Subjective Principal diagnosis: Covid-19 Interval history: on hiflo 100% 40 l Objective Vital Signs - 12hr 07/23/21 07/23/21 07/23/21 21:00 22:00 23:00 Temperature Pulse Rate 102 H 101 H 103 H Respiratory 35 H 33 H 41 H Rate Blood Pressure 125/68 110/71 118/73 O2 Sat by Pulse 99 100 100 Oximetry 07/23/21 07/24/21 07/24/21 23:26 00:00 00:09 Temperature Pulse Rate 97 H 99 H 109 H Respiratory 34 H 35 H 34 H Rate Blood Pressure 118/73 125/82 139/77 O2 Sat by Pulse 100 99 94 Oximetry 07/24/21 07/24/21 07/24/21 00:12 01:00 02:00 Temperature Pulse Rate 100 H 96 H Respiratory 48 H 31 H Rate Blood Pressure 134/76 124/79 O2 Sat by Pulse 94 94 100 Oximetry 07/24/21 07/24/21 07/24/21 03:00 03:45 03:46 Temperature 97 F L Pulse Rate 96 H 98 H Respiratory 34 H 39 H Rate Blood Pressure 127/76 O2 Sat by Pulse 100 98 Oximetry 07/24/21 07/24/21 07/24/21 03:56 04:00 05:00 Temperature Pulse Rate 85 71 102 H Respiratory 27 H 28 H 31 H Rate Blood Pressure 127/76 133/56 129/70 O2 Sat by Pulse 100 100 100 Oximetry 07/24/21 07/24/21 07/24/21 06:00 07:00 08:00 Temperature Pulse Rate 102 H 101 H 105 H Respiratory 38 H 29 H 29 H Rate Blood Pressure 129/74 124/72 132/77 O2 Sat by Pulse 97 100 99 Oximetry 07/24/21 08:39 Temperature Pulse Rate Respiratory Rate Blood Pressure O2 Sat by Pulse 96 Oximetry Constitutional: alert, other (on bipap) Eyes: non-icteric ENT: oropharynx moist Neck: supple Effort: normal Ascultation: Bilateral: diminished breath sounds Cardiovascular: regular rate and rhythm Gastrointestinal: normoactive bowel sounds, soft, non-tender, non-distended Integumentary: normal Extremities: no cyanosis, no edema, pink and warm Neurologic: non-focal exam, pupils equal and round Psychiatric: mood appropriate, affect normal CBC and BMP: 07/23/21 04:35 07/24/21 04:10 ABG, PT/INR, D-dimer: ABG ABG pH 7.417 (7.320-7.450) 07/23/21 18:11 POC ABG pCO2 78.3 mmHg (32.0-48.0) H 07/23/21 18:11 ABG pCO2 85.7 mm Hg 07/22/21 12:05 POC ABG pO2 80.7 mmHg (83-108) L 07/23/21 18:11 ABG pO2 66.1 mm Hg (80.0-90.0) L 07/22/21 12:05 POC ABG HCO3 49.3 07/23/21 18:11 ABG O2 Saturation 96.7 (0-100) 07/23/21 18:11 PT/INR, D-dimer D-Dimer 638.35 ng/mlDDU (0-234) H 07/09/21 04:45 Abnormal lab findings: Abnormal Labs 04/16/21 04/16/21 04/16/21 11:42 11:42 11:42 WBC MCV MCH MCHC RDW 16.1 H Lymph % (Auto) 7.8 L [place] % (Auto) Eos % (Auto) Lymph # (Auto) 0.8 L [place] # (Auto) Eos # (Auto) Baso # (Auto) Seg Neutrophils % 87.7 H Seg Neuts % (Manual) Lymphocytes % (Manual) Seg Neutrophils # 8.5 H Seg Neutrophils # Man Lymphocytes # (Manual) D-Dimer 338.70 H ABG pH POC ABG pCO2 POC ABG pO2 ABG pO2 ABG HCO3 ABG O2 Saturation ABG Base Excess ABG Oxyhemoglobin ABG Sodium ABG Chloride ABG Glucose Oxyhemoglobin Carboxyhemoglobin Sodium Potassium Chloride Carbon Dioxide BUN Creatinine Glucose 194 H POC Glucose Hemoglobin A1c Magnesium Ferritin AST ALT Alkaline Phosphatase Lactate Dehydrogenase C-Reactive Protein Total Protein 8.4 H Albumin 3.8 L Arterial Blood Glucose Coronavirus (PCR) 04/16/21 04/16/21 04/17/21 11:42 11:42 03:50 WBC MCV MCH MCHC RDW 16.0 H Lymph % (Auto) 7.7 L [place] % (Auto) Eos % (Auto) Lymph # (Auto) 0.6 L [place] # (Auto) Eos # (Auto) Baso # (Auto) Seg Neutrophils % 89.8 H Seg Neuts % (Manual) Lymphocytes % (Manual) Seg Neutrophils # Seg Neutrophils # Man Lymphocytes # (Manual) D-Dimer ABG pH POC ABG pCO2 POC ABG pO2 ABG pO2 ABG HCO3 ABG O2 Saturation ABG Base Excess ABG Oxyhemoglobin ABG Sodium ABG Chloride ABG Glucose Oxyhemoglobin Carboxyhemoglobin Sodium Potassium Chloride Carbon Dioxide BUN Creatinine Glucose 195 H POC Glucose Hemoglobin A1c Magnesium Ferritin 254.3 H AST ALT Alkaline Phosphatase Lactate Dehydrogenase 359 H C-Reactive Protein 15.20 H Total Protein Albumin Arterial Blood Glucose Coronavirus (PCR) 04/17/21 04/17/21 04/17/21 03:50 08:26 08:26 WBC MCV MCH MCHC RDW Lymph % (Auto) [place] % (Auto) Eos % (Auto) Lymph # (Auto) [place] # (Auto) Eos # (Auto) Baso # (Auto) Seg Neutrophils % Seg Neuts % (Manual) Lymphocytes % (Manual) Seg Neutrophils # Seg Neutrophils # Man Lymphocytes # (Manual) D-Dimer 262.48 H ABG pH POC ABG pCO2 POC ABG pO2 ABG pO2 ABG HCO3 ABG O2 Saturation ABG Base Excess ABG Oxyhemoglobin ABG Sodium ABG Chloride ABG Glucose Oxyhemoglobin Carboxyhemoglobin Sodium Potassium Chloride Carbon Dioxide BUN 20 H Creatinine 0.5 L Glucose 249 H 225 H POC Glucose Hemoglobin A1c Magnesium Ferritin AST ALT Alkaline Phosphatase Lactate Dehydrogenase 338 H C-Reactive Protein 17.20 H Total Protein Albumin 3.2 L Arterial Blood Glucose Coronavirus (PCR) 04/17/21 04/17/21 04/17/21 08:26 15:04 Unknown WBC MCV MCH MCHC RDW Lymph % (Auto) [place] % (Auto) Eos % (Auto) Lymph # (Auto) [place] # (Auto) Eos # (Auto) Baso # (Auto) Seg Neutrophils % Seg Neuts % (Manual) Lymphocytes % (Manual) Seg Neutrophils # Seg Neutrophils # Man Lymphocytes # (Manual) D-Dimer ABG pH POC ABG pCO2 POC ABG pO2 ABG pO2 ABG HCO3 ABG O2 Saturation ABG Base Excess ABG Oxyhemoglobin ABG Sodium ABG Chloride ABG Glucose Oxyhemoglobin Carboxyhemoglobin Sodium Potassium Chloride Carbon Dioxide BUN 20 H Creatinine 0.5 L Glucose 246 H POC Glucose Hemoglobin A1c Magnesium Ferritin 392.0 H AST ALT Alkaline Phosphatase Lactate Dehydrogenase C-Reactive Protein Total Protein 8.3 H Albumin 3.1 L Arterial Blood Glucose Coronavirus (PCR) Positive A 04/18/21 04/18/21 04/18/21 05:06 05:06 07:36 WBC 11.6 H MCV MCH MCHC RDW 16.1 H Lymph % (Auto) [place] % (Auto) Eos % (Auto) Lymph # (Auto) [place] # (Auto) Eos # (Auto) Baso # (Auto) Seg Neutrophils % Seg Neuts % (Manual) Lymphocytes % (Manual) Seg Neutrophils # Seg Neutrophils # Man Lymphocytes # (Manual) D-Dimer ABG pH POC ABG pCO2 POC ABG pO2 ABG pO2 ABG HCO3 ABG O2 Saturation ABG Base Excess ABG Oxyhemoglobin ABG Sodium ABG Chloride ABG Glucose Oxyhemoglobin Carboxyhemoglobin Sodium Potassium 5.2 H Chloride Carbon Dioxide BUN 22 H Creatinine 0.5 L Glucose 315 H POC Glucose Hemoglobin A1c 8.5 H Magnesium Ferritin AST ALT Alkaline Phosphatase Lactate Dehydrogenase C-Reactive Protein Total Protein Albumin 3.3 L Arterial Blood Glucose Coronavirus (PCR) 04/18/21 04/18/21 04/18/21 11:59 16:43 23:24 WBC MCV MCH MCHC RDW Lymph % (Auto) [place] % (Auto) Eos % (Auto) Lymph # (Auto) [place] # (Auto) Eos # (Auto) Baso # (Auto) Seg Neutrophils % Seg Neuts % (Manual) Lymphocytes % (Manual) Seg Neutrophils # Seg Neutrophils # Man Lymphocytes # (Manual) D-Dimer ABG pH POC ABG pCO2 POC ABG pO2 ABG pO2 ABG HCO3 ABG O2 Saturation ABG Base Excess ABG Oxyhemoglobin ABG Sodium ABG Chloride ABG Glucose Oxyhemoglobin Carboxyhemoglobin Sodium Potassium Chloride Carbon Dioxide BUN Creatinine Glucose POC Glucose 284 H 273 H 290 H Hemoglobin A1c Magnesium Ferritin AST ALT Alkaline Phosphatase Lactate Dehydrogenase C-Reactive Protein Total Protein Albumin Arterial Blood Glucose Coronavirus (PCR) 04/19/21 04/19/21 04/19/21 04:19 04:19 08:10 WBC MCV MCH MCHC RDW 15.7 H Lymph % (Auto) [place] % (Auto) Eos % (Auto) Lymph # (Auto) [place] # (Auto) Eos # (Auto) Baso # (Auto) Seg Neutrophils % Seg Neuts % (Manual) Lymphocytes % (Manual) Seg Neutrophils # Seg Neutrophils # Man Lymphocytes # (Manual) D-Dimer ABG pH POC ABG pCO2 POC ABG pO2 ABG pO2 ABG HCO3 ABG O2 Saturation ABG Base Excess ABG Oxyhemoglobin ABG Sodium ABG Chloride ABG Glucose Oxyhemoglobin Carboxyhemoglobin Sodium Potassium Chloride Carbon Dioxide BUN 27 H Creatinine 0.4 L Glucose 184 H POC Glucose 194 H Hemoglobin A1c Magnesium Ferritin AST ALT Alkaline Phosphatase Lactate Dehydrogenase C-Reactive Protein Total Protein Albumin 3.1 L Arterial Blood Glucose Coronavirus (PCR) 04/19/21 04/19/21 04/19/21 11:38 16:25 22:04 WBC MCV MCH MCHC RDW Lymph % (Auto) [place] % (Auto) Eos % (Auto) Lymph # (Auto) [place] # (Auto) Eos # (Auto) Baso # (Auto) Seg Neutrophils % Seg Neuts % (Manual) Lymphocytes % (Manual) Seg Neutrophils # Seg Neutrophils # Man Lymphocytes # (Manual) D-Dimer ABG pH POC ABG pCO2 POC ABG pO2 ABG pO2 ABG HCO3 ABG O2 Saturation ABG Base Excess ABG Oxyhemoglobin ABG Sodium ABG Chloride ABG Glucose Oxyhemoglobin Carboxyhemoglobin Sodium Potassium Chloride Carbon Dioxide BUN Creatinine Glucose POC Glucose 224 H 297 H 251 H Hemoglobin A1c Magnesium Ferritin AST ALT Alkaline Phosphatase Lactate Dehydrogenase C-Reactive Protein Total Protein Albumin Arterial Blood Glucose Coronavirus (PCR) 04/20/21 04/20/21 04/20/21 05:28 08:43 16:21 WBC MCV MCH MCHC RDW Lymph % (Auto) [place] % (Auto) Eos % (Auto) Lymph # (Auto) [place] # (Auto) Eos # (Auto) Baso # (Auto) Seg Neutrophils % Seg Neuts % (Manual) Lymphocytes % (Manual) Seg Neutrophils # Seg Neutrophils # Man Lymphocytes # (Manual) D-Dimer ABG pH POC ABG pCO2 POC ABG pO2 ABG pO2 ABG HCO3 ABG O2 Saturation ABG Base Excess ABG Oxyhemoglobin ABG Sodium ABG Chloride ABG Glucose Oxyhemoglobin Carboxyhemoglobin Sodium Potassium Chloride Carbon Dioxide BUN 27 H Creatinine Glucose 192 H POC Glucose 173 H 253 H Hemoglobin A1c Magnesium Ferritin AST ALT Alkaline Phosphatase Lactate Dehydrogenase C-Reactive Protein Total Protein Albumin 3.0 L Arterial Blood Glucose Coronavirus (PCR) 04/21/21 04/21/21 04/21/21 07:58 12:05 16:08 WBC MCV MCH MCHC RDW Lymph % (Auto) [place] % (Auto) Eos % (Auto) Lymph # (Auto) [place] # (Auto) Eos # (Auto) Baso # (Auto) Seg Neutrophils % Seg Neuts % (Manual) Lymphocytes % (Manual) Seg Neutrophils # Seg Neutrophils # Man Lymphocytes # (Manual) D-Dimer ABG pH POC ABG pCO2 POC ABG pO2 ABG pO2 ABG HCO3 ABG O2 Saturation ABG Base Excess ABG Oxyhemoglobin ABG Sodium ABG Chloride ABG Glucose Oxyhemoglobin Carboxyhemoglobin Sodium Potassium Chloride Carbon Dioxide BUN Creatinine Glucose POC Glucose 140 H 252 H 214 H Hemoglobin A1c Magnesium Ferritin AST ALT Alkaline Phosphatase Lactate Dehydrogenase C-Reactive Protein Total Protein Albumin Arterial Blood Glucose Coronavirus (PCR) 04/21/21 04/22/21 04/22/21 21:42 08:37 12:01 WBC MCV MCH MCHC RDW Lymph % (Auto) [place] % (Auto) Eos % (Auto) Lymph # (Auto) [place] # (Auto) Eos # (Auto) Baso # (Auto) Seg Neutrophils % Seg Neuts % (Manual) Lymphocytes % (Manual) Seg Neutrophils # Seg Neutrophils # Man Lymphocytes # (Manual) D-Dimer ABG pH 7.457 H POC ABG pCO2 POC ABG pO2 49.4 L ABG pO2 ABG HCO3 ABG O2 Saturation ABG Base Excess ABG Oxyhemoglobin 85.6 L ABG Sodium ABG Chloride ABG Glucose 121 H Oxyhemoglobin Carboxyhemoglobin 0.3 L Sodium Potassium Chloride Carbon Dioxide BUN Creatinine Glucose POC Glucose 162 H 227 H Hemoglobin A1c Magnesium Ferritin AST ALT Alkaline Phosphatase Lactate Dehydrogenase C-Reactive Protein Total Protein Albumin Arterial Blood Glucose 121 H Coronavirus (PCR) 04/22/21 04/22/21 04/23/21 16:26 22:23 04:52 WBC MCV MCH MCHC RDW 15.7 H Lymph % (Auto) [place] % (Auto) Eos % (Auto) Lymph # (Auto) [place] # (Auto) Eos # (Auto) Baso # (Auto) Seg Neutrophils % Seg Neuts % (Manual) Lymphocytes % (Manual) Seg Neutrophils # Seg Neutrophils # Man Lymphocytes # (Manual) D-Dimer ABG pH POC ABG pCO2 POC ABG pO2 ABG pO2 ABG HCO3 ABG O2 Saturation ABG Base Excess ABG Oxyhemoglobin ABG Sodium ABG Chloride ABG Glucose Oxyhemoglobin Carboxyhemoglobin Sodium Potassium Chloride Carbon Dioxide BUN Creatinine Glucose POC Glucose 200 H 136 H Hemoglobin A1c Magnesium Ferritin AST ALT Alkaline Phosphatase Lactate Dehydrogenase C-Reactive Protein Total Protein Albumin Arterial Blood Glucose Coronavirus (PCR) 04/23/21 04/23/21 04/23/21 04:52 12:06 17:41 WBC MCV MCH MCHC RDW Lymph % (Auto) [place] % (Auto) Eos % (Auto) Lymph # (Auto) [place] # (Auto) Eos # (Auto) Baso # (Auto) Seg Neutrophils % Seg Neuts % (Manual) Lymphocytes % (Manual) Seg Neutrophils # Seg Neutrophils # Man Lymphocytes # (Manual) D-Dimer ABG pH POC ABG pCO2 POC ABG pO2 ABG pO2 ABG HCO3 ABG O2 Saturation ABG Base Excess ABG Oxyhemoglobin ABG Sodium ABG Chloride ABG Glucose Oxyhemoglobin Carboxyhemoglobin Sodium 136 L Potassium Chloride 97.7 L Carbon Dioxide BUN 23 H Creatinine Glucose 101 H POC Glucose 202 H 169 H Hemoglobin A1c Magnesium Ferritin AST 46 H ALT Alkaline Phosphatase Lactate Dehydrogenase C-Reactive Protein Total Protein Albumin 3.3 L Arterial Blood Glucose Coronavirus (PCR) 04/23/21 04/24/21 04/24/21 23:08 05:17 08:38 WBC MCV MCH MCHC RDW Lymph % (Auto) [place] % (Auto) Eos % (Auto) Lymph # (Auto) [place] # (Auto) Eos # (Auto) Baso # (Auto) Seg Neutrophils % Seg Neuts % (Manual) Lymphocytes % (Manual) Seg Neutrophils # Seg Neutrophils # Man Lymphocytes # (Manual) D-Dimer ABG pH POC ABG pCO2 POC ABG pO2 ABG pO2 ABG HCO3 ABG O2 Saturation ABG Base Excess ABG Oxyhemoglobin ABG Sodium ABG Chloride ABG Glucose Oxyhemoglobin Carboxyhemoglobin Sodium Potassium Chloride Carbon Dioxide BUN Creatinine Glucose POC Glucose 111 H 108 H 126 H Hemoglobin A1c Magnesium Ferritin AST ALT Alkaline Phosphatase Lactate Dehydrogenase C-Reactive Protein Total Protein Albumin Arterial Blood Glucose Coronavirus (PCR) 04/24/21 04/24/21 04/24/21 11:54 17:57 21:23 WBC MCV MCH MCHC RDW Lymph % (Auto) [place] % (Auto) Eos % (Auto) Lymph # (Auto) [place] # (Auto) Eos # (Auto) Baso # (Auto) Seg Neutrophils % Seg Neuts % (Manual) Lymphocytes % (Manual) Seg Neutrophils # Seg Neutrophils # Man Lymphocytes # (Manual) D-Dimer ABG pH POC ABG pCO2 POC ABG pO2 ABG pO2 ABG HCO3 ABG O2 Saturation ABG Base Excess ABG Oxyhemoglobin ABG Sodium ABG Chloride ABG Glucose Oxyhemoglobin Carboxyhemoglobin Sodium Potassium Chloride Carbon Dioxide BUN Creatinine Glucose POC Glucose 147 H 177 H 138 H Hemoglobin A1c Magnesium Ferritin AST ALT Alkaline Phosphatase Lactate Dehydrogenase C-Reactive Protein Total Protein Albumin Arterial Blood Glucose Coronavirus (PCR) 04/25/21 04/25/21 04/25/21 07:06 11:23 15:43 WBC MCV MCH MCHC RDW Lymph % (Auto) [place] % (Auto) Eos % (Auto) Lymph # (Auto) [place] # (Auto) Eos # (Auto) Baso # (Auto) Seg Neutrophils % Seg Neuts % (Manual) Lymphocytes % (Manual) Seg Neutrophils # Seg Neutrophils # Man Lymphocytes # (Manual) D-Dimer ABG pH POC ABG pCO2 POC ABG pO2 ABG pO2 ABG HCO3 ABG O2 Saturation ABG Base Excess ABG Oxyhemoglobin ABG Sodium ABG Chloride ABG Glucose Oxyhemoglobin Carboxyhemoglobin Sodium Potassium Chloride Carbon Dioxide BUN Creatinine Glucose POC Glucose 147 H 169 H 227 H Hemoglobin A1c Magnesium Ferritin AST ALT Alkaline Phosphatase Lactate Dehydrogenase C-Reactive Protein Total Protein Albumin Arterial Blood Glucose Coronavirus (PCR) 04/25/21 04/26/21 04/26/21 21:22 02:45 05:15 WBC MCV MCH MCHC RDW Lymph % (Auto) [place] % (Auto) Eos % (Auto) Lymph # (Auto) [place] # (Auto) Eos # (Auto) Baso # (Auto) Seg Neutrophils % Seg Neuts % (Manual) Lymphocytes % (Manual) Seg Neutrophils # Seg Neutrophils # Man Lymphocytes # (Manual) D-Dimer ABG pH POC ABG pCO2 POC ABG pO2 70.7 L ABG pO2 ABG HCO3 ABG O2 Saturation ABG Base Excess ABG Oxyhemoglobin 93.0 L ABG Sodium 132.7 L ABG Chloride ABG Glucose 115 H Oxyhemoglobin Carboxyhemoglobin Sodium Potassium Chloride 95.8 L Carbon Dioxide 32 H BUN 20 H Creatinine Glucose 102 H POC Glucose 196 H Hemoglobin A1c Magnesium Ferritin AST ALT Alkaline Phosphatase Lactate Dehydrogenase C-Reactive Protein Total Protein Albumin Arterial Blood Glucose 115 H Coronavirus (PCR) 04/26/21 04/26/21 04/26/21 11:49 16:09 21:07 WBC MCV MCH MCHC RDW Lymph % (Auto) [place] % (Auto) Eos % (Auto) Lymph # (Auto) [place] # (Auto) Eos # (Auto) Baso # (Auto) Seg Neutrophils % Seg Neuts % (Manual) Lymphocytes % (Manual) Seg Neutrophils # Seg Neutrophils # Man Lymphocytes # (Manual) D-Dimer ABG pH POC ABG pCO2 POC ABG pO2 ABG pO2 ABG HCO3 ABG O2 Saturation ABG Base Excess ABG Oxyhemoglobin ABG Sodium ABG Chloride ABG Glucose Oxyhemoglobin Carboxyhemoglobin Sodium Potassium Chloride Carbon Dioxide BUN Creatinine Glucose POC Glucose 114 H 188 H 136 H Hemoglobin A1c Magnesium Ferritin AST ALT Alkaline Phosphatase Lactate Dehydrogenase C-Reactive Protein Total Protein Albumin Arterial Blood Glucose Coronavirus (PCR) 04/27/21 04/27/21 04/28/21 17:34 22:12 08:26 WBC MCV MCH MCHC RDW Lymph % (Auto) [place] % (Auto) Eos % (Auto) Lymph # (Auto) [place] # (Auto) Eos # (Auto) Baso # (Auto) Seg Neutrophils % Seg Neuts % (Manual) Lymphocytes % (Manual) Seg Neutrophils # Seg Neutrophils # Man Lymphocytes # (Manual) D-Dimer ABG pH POC ABG pCO2 POC ABG pO2 ABG pO2 ABG HCO3 ABG O2 Saturation ABG Base Excess ABG Oxyhemoglobin ABG Sodium ABG Chloride ABG Glucose Oxyhemoglobin Carboxyhemoglobin Sodium Potassium Chloride Carbon Dioxide BUN Creatinine Glucose POC Glucose 128 H 159 H 69 L Hemoglobin A1c Magnesium Ferritin AST ALT Alkaline Phosphatase Lactate Dehydrogenase C-Reactive Protein Total Protein Albumin Arterial Blood Glucose Coronavirus (PCR) 04/28/21 04/28/21 04/29/21 12:22 21:11 06:05 WBC MCV MCH MCHC RDW Lymph % (Auto) [place] % (Auto) Eos % (Auto) Lymph # (Auto) [place] # (Auto) Eos # (Auto) Baso # (Auto) Seg Neutrophils % Seg Neuts % (Manual) Lymphocytes % (Manual) Seg Neutrophils # Seg Neutrophils # Man Lymphocytes # (Manual) D-Dimer ABG pH POC ABG pCO2 POC ABG pO2 ABG pO2 ABG HCO3 ABG O2 Saturation ABG Base Excess ABG Oxyhemoglobin ABG Sodium ABG Chloride ABG Glucose Oxyhemoglobin Carboxyhemoglobin Sodium 132 L Potassium Chloride 94.4 L Carbon Dioxide BUN Creatinine 0.2 L D Glucose 140 H POC Glucose 141 H 171 H Hemoglobin A1c Magnesium Ferritin AST ALT Alkaline Phosphatase Lactate Dehydrogenase C-Reactive Protein Total Protein Albumin Arterial Blood Glucose Coronavirus (PCR) 04/29/21 04/29/21 04/29/21 06:05 07:24 11:36 WBC MCV MCH MCHC 35 H RDW 15.9 H Lymph % (Auto) [place] % (Auto) Eos % (Auto) Lymph # (Auto) [place] # (Auto) Eos # (Auto) Baso # (Auto) Seg Neutrophils % Seg Neuts % (Manual) Lymphocytes % (Manual) Seg Neutrophils # Seg Neutrophils # Man Lymphocytes # (Manual) D-Dimer ABG pH POC ABG pCO2 POC ABG pO2 ABG pO2 ABG HCO3 ABG O2 Saturation ABG Base Excess ABG Oxyhemoglobin ABG Sodium ABG Chloride ABG Glucose Oxyhemoglobin Carboxyhemoglobin Sodium Potassium Chloride Carbon Dioxide BUN Creatinine Glucose POC Glucose 141 H 220 H Hemoglobin A1c Magnesium Ferritin AST ALT Alkaline Phosphatase Lactate Dehydrogenase C-Reactive Protein Total Protein Albumin Arterial Blood Glucose Coronavirus (PCR) 04/29/21 04/29/21 04/29/21 14:23 15:30 17:06 WBC MCV MCH MCHC RDW Lymph % (Auto) [place] % (Auto) Eos % (Auto) Lymph # (Auto) [place] # (Auto) Eos # (Auto) Baso # (Auto) Seg Neutrophils % Seg Neuts % (Manual) Lymphocytes % (Manual) Seg Neutrophils # Seg Neutrophils # Man Lymphocytes # (Manual) D-Dimer ABG pH POC ABG pCO2 POC ABG pO2 ABG pO2 52.6 L ABG HCO3 ABG O2 Saturation 86.4 L ABG Base Excess ABG Oxyhemoglobin ABG Sodium ABG Chloride ABG Glucose Oxyhemoglobin 84.6 L Carboxyhemoglobin Sodium Potassium Chloride Carbon Dioxide BUN Creatinine Glucose POC Glucose 173 H 158 H Hemoglobin A1c Magnesium Ferritin AST ALT Alkaline Phosphatase Lactate Dehydrogenase C-Reactive Protein Total Protein Albumin Arterial Blood Glucose Coronavirus (PCR) 04/29/21 04/30/21 04/30/21 21:27 07:16 08:00 WBC MCV MCH MCHC RDW 16.1 H Lymph % (Auto) [place] % (Auto) Eos % (Auto) Lymph # (Auto) [place] # (Auto) Eos # (Auto) Baso # (Auto) Seg Neutrophils % Seg Neuts % (Manual) Lymphocytes % (Manual) Seg Neutrophils # Seg Neutrophils # Man Lymphocytes # (Manual) D-Dimer ABG pH POC ABG pCO2 POC ABG pO2 ABG pO2 ABG HCO3 ABG O2 Saturation ABG Base Excess ABG Oxyhemoglobin ABG Sodium ABG Chloride ABG Glucose Oxyhemoglobin Carboxyhemoglobin Sodium Potassium Chloride Carbon Dioxide BUN Creatinine Glucose POC Glucose 244 H 175 H Hemoglobin A1c Magnesium Ferritin AST ALT Alkaline Phosphatase Lactate Dehydrogenase C-Reactive Protein Total Protein Albumin Arterial Blood Glucose Coronavirus (PCR) 04/30/21 04/30/21 04/30/21 08:00 08:00 11:03 WBC MCV MCH MCHC RDW Lymph % (Auto) [place] % (Auto) Eos % (Auto) Lymph # (Auto) [place] # (Auto) Eos # (Auto) Baso # (Auto) Seg Neutrophils % Seg Neuts % (Manual) Lymphocytes % (Manual) Seg Neutrophils # Seg Neutrophils # Man Lymphocytes # (Manual) D-Dimer 1796.87 H ABG pH POC ABG pCO2 POC ABG pO2 ABG pO2 ABG HCO3 ABG O2 Saturation ABG Base Excess ABG Oxyhemoglobin ABG Sodium ABG Chloride ABG Glucose Oxyhemoglobin Carboxyhemoglobin Sodium 135 L Potassium Chloride 96.3 L Carbon Dioxide BUN Creatinine 0.2 L Glucose 153 H POC Glucose 183 H Hemoglobin A1c Magnesium Ferritin AST 41 H ALT 76 H Alkaline Phosphatase 160 H Lactate Dehydrogenase 522 H C-Reactive Protein Total Protein 6.1 L Albumin 3.1 L Arterial Blood Glucose Coronavirus (PCR) 04/30/21 04/30/21 05/01/21 17:04 22:17 05:39 WBC MCV MCH MCHC RDW Lymph % (Auto) [place] % (Auto) Eos % (Auto) Lymph # (Auto) [place] # (Auto) Eos # (Auto) Baso # (Auto) Seg Neutrophils % Seg Neuts % (Manual) Lymphocytes % (Manual) Seg Neutrophils # Seg Neutrophils # Man Lymphocytes # (Manual) D-Dimer ABG pH POC ABG pCO2 POC ABG pO2 ABG pO2 ABG HCO3 ABG O2 Saturation ABG Base Excess ABG Oxyhemoglobin ABG Sodium ABG Chloride ABG Glucose Oxyhemoglobin Carboxyhemoglobin Sodium 133 L Potassium Chloride 92.1 L Carbon Dioxide BUN 24 H Creatinine 0.4 L D Glucose 269 H POC Glucose 167 H 208 H Hemoglobin A1c Magnesium Ferritin AST ALT 66 H Alkaline Phosphatase 142 H Lactate Dehydrogenase C-Reactive Protein Total Protein Albumin 3.2 L Arterial Blood Glucose Coronavirus (PCR) 05/01/21 05/01/21 05/01/21 05:39 05:39 07:45 WBC MCV MCH MCHC RDW 16.0 H Lymph % (Auto) [place] % (Auto) Eos % (Auto) Lymph # (Auto) [place] # (Auto) Eos # (Auto) Baso # (Auto) Seg Neutrophils % Seg Neuts % (Manual) Lymphocytes % (Manual) Seg Neutrophils # Seg Neutrophils # Man Lymphocytes # (Manual) D-Dimer 3984.95 H ABG pH POC ABG pCO2 POC ABG pO2 ABG pO2 ABG HCO3 ABG O2 Saturation ABG Base Excess ABG Oxyhemoglobin ABG Sodium ABG Chloride ABG Glucose Oxyhemoglobin Carboxyhemoglobin Sodium Potassium Chloride Carbon Dioxide BUN Creatinine Glucose POC Glucose 229 H Hemoglobin A1c Magnesium Ferritin AST ALT Alkaline Phosphatase Lactate Dehydrogenase C-Reactive Protein Total Protein Albumin Arterial Blood Glucose Coronavirus (PCR) 05/01/21 05/01/21 05/01/21 12:10 15:46 21:06 WBC MCV MCH MCHC RDW Lymph % (Auto) [place] % (Auto) Eos % (Auto) Lymph # (Auto) [place] # (Auto) Eos # (Auto) Baso # (Auto) Seg Neutrophils % Seg Neuts % (Manual) Lymphocytes % (Manual) Seg Neutrophils # Seg Neutrophils # Man Lymphocytes # (Manual) D-Dimer ABG pH POC ABG pCO2 POC ABG pO2 ABG pO2 ABG HCO3 ABG O2 Saturation ABG Base Excess ABG Oxyhemoglobin ABG Sodium ABG Chloride ABG Glucose Oxyhemoglobin Carboxyhemoglobin Sodium Potassium Chloride Carbon Dioxide BUN Creatinine Glucose POC Glucose 296 H 279 H 232 H Hemoglobin A1c Magnesium Ferritin AST ALT Alkaline Phosphatase Lactate Dehydrogenase C-Reactive Protein Total Protein Albumin Arterial Blood Glucose Coronavirus (PCR) 05/02/21 05/02/21 05/02/21 04:55 04:55 04:55 WBC MCV MCH MCHC RDW 16.1 H Lymph % (Auto) [place] % (Auto) Eos % (Auto) Lymph # (Auto) [place] # (Auto) Eos # (Auto) Baso # (Auto) Seg Neutrophils % Seg Neuts % (Manual) Lymphocytes % (Manual) Seg Neutrophils # Seg Neutrophils # Man Lymphocytes # (Manual) D-Dimer 1401.08 H ABG pH POC ABG pCO2 POC ABG pO2 ABG pO2 ABG HCO3 ABG O2 Saturation ABG Base Excess ABG Oxyhemoglobin ABG Sodium ABG Chloride ABG Glucose Oxyhemoglobin Carboxyhemoglobin Sodium 131 L Potassium Chloride 95.5 L Carbon Dioxide BUN 20 H Creatinine 0.3 L Glucose 288 H POC Glucose Hemoglobin A1c Magnesium Ferritin AST ALT Alkaline Phosphatase Lactate Dehydrogenase C-Reactive Protein Total Protein 6.0 L Albumin 3.1 L Arterial Blood Glucose Coronavirus (PCR) 05/02/21 05/02/21 05/02/21 07:53 11:45 15:25 WBC MCV MCH MCHC RDW Lymph % (Auto) [place] % (Auto) Eos % (Auto) Lymph # (Auto) [place] # (Auto) Eos # (Auto) Baso # (Auto) Seg Neutrophils % Seg Neuts % (Manual) Lymphocytes % (Manual) Seg Neutrophils # Seg Neutrophils # Man Lymphocytes # (Manual) D-Dimer ABG pH POC ABG pCO2 POC ABG pO2 ABG pO2 ABG HCO3 ABG O2 Saturation ABG Base Excess ABG Oxyhemoglobin ABG Sodium ABG Chloride ABG Glucose Oxyhemoglobin Carboxyhemoglobin Sodium Potassium Chloride Carbon Dioxide BUN Creatinine Glucose POC Glucose 180 H 228 H 275 H Hemoglobin A1c Magnesium Ferritin AST ALT Alkaline Phosphatase Lactate Dehydrogenase C-Reactive Protein Total Protein Albumin Arterial Blood Glucose Coronavirus (PCR) 05/02/21 05/03/21 05/03/21 22:56 04:30 04:49 WBC MCV MCH MCHC RDW Lymph % (Auto) [place] % (Auto) Eos % (Auto) Lymph # (Auto) [place] # (Auto) Eos # (Auto) Baso # (Auto) Seg Neutrophils % Seg Neuts % (Manual) Lymphocytes % (Manual) Seg Neutrophils # Seg Neutrophils # Man Lymphocytes # (Manual) D-Dimer ABG pH 7.229 L POC ABG pCO2 POC ABG pO2 65.3 L ABG pO2 ABG HCO3 ABG O2 Saturation ABG Base Excess ABG Oxyhemoglobin 87.8 L ABG Sodium 133.0 L ABG Chloride 97.0 L ABG Glucose 403 H Oxyhemoglobin Carboxyhemoglobin Sodium 130 L Potassium Chloride 94.9 L Carbon Dioxide BUN 20 H Creatinine 0.5 L D Glucose 359 H POC Glucose 293 H Hemoglobin A1c Magnesium Ferritin AST 54 H ALT 75 H Alkaline Phosphatase 138 H Lactate Dehydrogenase C-Reactive Protein Total Protein Albumin 3.6 L Arterial Blood Glucose 403 H Coronavirus (PCR) 05/03/21 05/03/21 05/03/21 05:27 11:26 17:57 WBC MCV MCH MCHC RDW Lymph % (Auto) [place] % (Auto) Eos % (Auto) Lymph # (Auto) [place] # (Auto) Eos # (Auto) Baso # (Auto) Seg Neutrophils % Seg Neuts % (Manual) Lymphocytes % (Manual) Seg Neutrophils # Seg Neutrophils # Man Lymphocytes # (Manual) D-Dimer ABG pH POC ABG pCO2 POC ABG pO2 ABG pO2 ABG HCO3 ABG O2 Saturation ABG Base Excess ABG Oxyhemoglobin ABG Sodium ABG Chloride ABG Glucose Oxyhemoglobin Carboxyhemoglobin Sodium Potassium Chloride Carbon Dioxide BUN Creatinine Glucose POC Glucose 361 H 297 H 226 H Hemoglobin A1c Magnesium Ferritin AST ALT Alkaline Phosphatase Lactate Dehydrogenase C-Reactive Protein Total Protein Albumin Arterial Blood Glucose Coronavirus (PCR) 05/03/21 05/04/21 05/04/21 23:12 05:12 07:30 WBC MCV MCH MCHC RDW Lymph % (Auto) [place] % (Auto) Eos % (Auto) Lymph # (Auto) [place] # (Auto) Eos # (Auto) Baso # (Auto) Seg Neutrophils % Seg Neuts % (Manual) Lymphocytes % (Manual) Seg Neutrophils # Seg Neutrophils # Man Lymphocytes # (Manual) D-Dimer ABG pH POC ABG pCO2 POC ABG pO2 ABG pO2 ABG HCO3 ABG O2 Saturation ABG Base Excess ABG Oxyhemoglobin ABG Sodium ABG Chloride ABG Glucose Oxyhemoglobin Carboxyhemoglobin Sodium Potassium Chloride Carbon Dioxide BUN Creatinine Glucose POC Glucose 282 H 285 H 254 H Hemoglobin A1c Magnesium Ferritin AST ALT Alkaline Phosphatase Lactate Dehydrogenase C-Reactive Protein Total Protein Albumin Arterial Blood Glucose Coronavirus (PCR) 05/04/21 05/04/21 05/04/21 08:58 11:45 16:07 WBC MCV MCH MCHC RDW Lymph % (Auto) [place] % (Auto) Eos % (Auto) Lymph # (Auto) [place] # (Auto) Eos # (Auto) Baso # (Auto) Seg Neutrophils % Seg Neuts % (Manual) Lymphocytes % (Manual) Seg Neutrophils # Seg Neutrophils # Man Lymphocytes # (Manual) D-Dimer ABG pH POC ABG pCO2 POC ABG pO2 ABG pO2 ABG HCO3 ABG O2 Saturation ABG Base Excess ABG Oxyhemoglobin ABG Sodium ABG Chloride ABG Glucose Oxyhemoglobin Carboxyhemoglobin Sodium 134 L Potassium Chloride Carbon Dioxide BUN 20 H Creatinine 0.3 L Glucose 267 H POC Glucose 244 H 297 H Hemoglobin A1c Magnesium Ferritin AST ALT Alkaline Phosphatase Lactate Dehydrogenase C-Reactive Protein Total Protein 6.0 L Albumin 3.2 L Arterial Blood Glucose Coronavirus (PCR) 05/04/21 05/05/21 05/05/21 23:32 05:00 05:13 WBC MCV MCH MCHC RDW Lymph % (Auto) [place] % (Auto) Eos % (Auto) Lymph # (Auto) [place] # (Auto) Eos # (Auto) Baso # (Auto) Seg Neutrophils % Seg Neuts % (Manual) Lymphocytes % (Manual) Seg Neutrophils # Seg Neutrophils # Man Lymphocytes # (Manual) D-Dimer ABG pH POC ABG pCO2 POC ABG pO2 ABG pO2 ABG HCO3 ABG O2 Saturation ABG Base Excess ABG Oxyhemoglobin ABG Sodium ABG Chloride ABG Glucose Oxyhemoglobin Carboxyhemoglobin Sodium 132 L Potassium Chloride 96.4 L Carbon Dioxide BUN 22 H Creatinine 0.3 L Glucose 228 H POC Glucose 154 H 260 H Hemoglobin A1c Magnesium Ferritin AST ALT 67 H Alkaline Phosphatase Lactate Dehydrogenase C-Reactive Protein Total Protein 6.1 L Albumin 3.2 L Arterial Blood Glucose Coronavirus (PCR) 05/05/21 05/05/21 05/05/21 11:32 17:49 23:07 WBC MCV MCH MCHC RDW Lymph % (Auto) [place] % (Auto) Eos % (Auto) Lymph # (Auto) [place] # (Auto) Eos # (Auto) Baso # (Auto) Seg Neutrophils % Seg Neuts % (Manual) Lymphocytes % (Manual) Seg Neutrophils # Seg Neutrophils # Man Lymphocytes # (Manual) D-Dimer ABG pH POC ABG pCO2 POC ABG pO2 ABG pO2 ABG HCO3 ABG O2 Saturation ABG Base Excess ABG Oxyhemoglobin ABG Sodium ABG Chloride ABG Glucose Oxyhemoglobin Carboxyhemoglobin Sodium Potassium Chloride Carbon Dioxide BUN Creatinine Glucose POC Glucose 279 H 308 H 213 H Hemoglobin A1c Magnesium Ferritin AST ALT Alkaline Phosphatase Lactate Dehydrogenase C-Reactive Protein Total Protein Albumin Arterial Blood Glucose Coronavirus (PCR) 05/06/21 05/06/21 05/06/21 05:00 05:00 05:20 WBC MCV MCH MCHC RDW 16.8 H Lymph % (Auto) [place] % (Auto) Eos % (Auto) Lymph # (Auto) [place] # (Auto) Eos # (Auto) Baso # (Auto) Seg Neutrophils % Seg Neuts % (Manual) 99.0 H Lymphocytes % (Manual) Seg Neutrophils # Seg Neutrophils # Man 10.9 H Lymphocytes # (Manual) 0.0 L D-Dimer ABG pH POC ABG pCO2 POC ABG pO2 ABG pO2 ABG HCO3 ABG O2 Saturation ABG Base Excess ABG Oxyhemoglobin ABG Sodium ABG Chloride ABG Glucose Oxyhemoglobin Carboxyhemoglobin Sodium 133 L Potassium Chloride Carbon Dioxide BUN 21 H Creatinine 0.3 L Glucose 259 H POC Glucose 308 H Hemoglobin A1c Magnesium Ferritin AST ALT Alkaline Phosphatase Lactate Dehydrogenase C-Reactive Protein Total Protein Albumin 3.2 L Arterial Blood Glucose Coronavirus (PCR) 05/06/21 05/06/21 05/06/21 11:24 17:54 21:32 WBC MCV MCH MCHC RDW Lymph % (Auto) [place] % (Auto) Eos % (Auto) Lymph # (Auto) [place] # (Auto) Eos # (Auto) Baso # (Auto) Seg Neutrophils % Seg Neuts % (Manual) Lymphocytes % (Manual) Seg Neutrophils # Seg Neutrophils # Man Lymphocytes # (Manual) D-Dimer ABG pH POC ABG pCO2 POC ABG pO2 ABG pO2 ABG HCO3 ABG O2 Saturation ABG Base Excess ABG Oxyhemoglobin ABG Sodium ABG Chloride ABG Glucose Oxyhemoglobin Carboxyhemoglobin Sodium Potassium Chloride Carbon Dioxide BUN Creatinine Glucose POC Glucose 262 H 124 H 246 H Hemoglobin A1c Magnesium Ferritin AST ALT Alkaline Phosphatase Lactate Dehydrogenase C-Reactive Protein Total Protein Albumin Arterial Blood Glucose Coronavirus (PCR) 05/06/21 05/07/21 05/07/21 23:10 04:54 04:54 WBC MCV MCH MCHC RDW Lymph % (Auto) [place] % (Auto) Eos % (Auto) Lymph # (Auto) [place] # (Auto) Eos # (Auto) Baso # (Auto) Seg Neutrophils % Seg Neuts % (Manual) Lymphocytes % (Manual) Seg Neutrophils # Seg Neutrophils # Man Lymphocytes # (Manual) D-Dimer 1609.28 H ABG pH POC ABG pCO2 POC ABG pO2 ABG pO2 ABG HCO3 ABG O2 Saturation ABG Base Excess ABG Oxyhemoglobin ABG Sodium ABG Chloride ABG Glucose Oxyhemoglobin Carboxyhemoglobin Sodium 136 L Potassium Chloride Carbon Dioxide BUN 23 H Creatinine 0.3 L Glucose 110 H POC Glucose 249 H Hemoglobin A1c Magnesium Ferritin AST ALT Alkaline Phosphatase Lactate Dehydrogenase C-Reactive Protein Total Protein 6.2 L Albumin 3.0 L Arterial Blood Glucose Coronavirus (PCR) 05/07/21 05/07/21 05/07/21 04:54 04:54 11:41 WBC MCV MCH MCHC RDW Lymph % (Auto) [place] % (Auto) Eos % (Auto) Lymph # (Auto) [place] # (Auto) Eos # (Auto) Baso # (Auto) Seg Neutrophils % Seg Neuts % (Manual) Lymphocytes % (Manual) Seg Neutrophils # Seg Neutrophils # Man Lymphocytes # (Manual) D-Dimer ABG pH POC ABG pCO2 POC ABG pO2 ABG pO2 ABG HCO3 ABG O2 Saturation ABG Base Excess ABG Oxyhemoglobin ABG Sodium ABG Chloride ABG Glucose Oxyhemoglobin Carboxyhemoglobin Sodium Potassium Chloride Carbon Dioxide BUN Creatinine Glucose POC Glucose 118 H Hemoglobin A1c Magnesium Ferritin 296.1 H AST ALT Alkaline Phosphatase Lactate Dehydrogenase 724 H C-Reactive Protein Total Protein Albumin Arterial Blood Glucose Coronavirus (PCR) 05/07/21 05/07/21 05/08/21 16:43 22:34 06:44 WBC MCV MCH MCHC RDW Lymph % (Auto) [place] % (Auto) Eos % (Auto) Lymph # (Auto) [place] # (Auto) Eos # (Auto) Baso # (Auto) Seg Neutrophils % Seg Neuts % (Manual) Lymphocytes % (Manual) Seg Neutrophils # Seg Neutrophils # Man Lymphocytes # (Manual) D-Dimer ABG pH POC ABG pCO2 POC ABG pO2 ABG pO2 ABG HCO3 ABG O2 Saturation ABG Base Excess ABG Oxyhemoglobin ABG Sodium ABG Chloride ABG Glucose Oxyhemoglobin Carboxyhemoglobin Sodium Potassium Chloride Carbon Dioxide BUN Creatinine Glucose POC Glucose 159 H 233 H 235 H Hemoglobin A1c Magnesium Ferritin AST ALT Alkaline Phosphatase Lactate Dehydrogenase C-Reactive Protein Total Protein Albumin Arterial Blood Glucose Coronavirus (PCR) 05/08/21 05/08/21 05/08/21 07:49 11:56 17:13 WBC MCV MCH MCHC RDW Lymph % (Auto) [place] % (Auto) Eos % (Auto) Lymph # (Auto) [place] # (Auto) Eos # (Auto) Baso # (Auto) Seg Neutrophils % Seg Neuts % (Manual) Lymphocytes % (Manual) Seg Neutrophils # Seg Neutrophils # Man Lymphocytes # (Manual) D-Dimer ABG pH POC ABG pCO2 POC ABG pO2 ABG pO2 ABG HCO3 ABG O2 Saturation ABG Base Excess ABG Oxyhemoglobin ABG Sodium ABG Chloride ABG Glucose Oxyhemoglobin Carboxyhemoglobin Sodium Potassium Chloride Carbon Dioxide BUN Creatinine Glucose POC Glucose 219 H 184 H 182 H Hemoglobin A1c Magnesium Ferritin AST ALT Alkaline Phosphatase Lactate Dehydrogenase C-Reactive Protein Total Protein Albumin Arterial Blood Glucose Coronavirus (PCR) 05/08/21 05/09/21 05/09/21 23:35 05:20 05:20 WBC MCV MCH MCHC RDW Lymph % (Auto) [place] % (Auto) Eos % (Auto) Lymph # (Auto) [place] # (Auto) Eos # (Auto) Baso # (Auto) Seg Neutrophils % Seg Neuts % (Manual) Lymphocytes % (Manual) Seg Neutrophils # Seg Neutrophils # Man Lymphocytes # (Manual) D-Dimer 1003.87 H ABG pH POC ABG pCO2 POC ABG pO2 ABG pO2 ABG HCO3 ABG O2 Saturation ABG Base Excess ABG Oxyhemoglobin ABG Sodium ABG Chloride ABG Glucose Oxyhemoglobin Carboxyhemoglobin Sodium Potassium Chloride Carbon Dioxide BUN Creatinine Glucose POC Glucose 198 H Hemoglobin A1c Magnesium Ferritin 378.7 H AST ALT Alkaline Phosphatase Lactate Dehydrogenase C-Reactive Protein Total Protein Albumin Arterial Blood Glucose Coronavirus (PCR) 05/09/21 05/09/21 05/09/21 05:20 06:04 12:53 WBC MCV MCH MCHC RDW Lymph % (Auto) [place] % (Auto) Eos % (Auto) Lymph # (Auto) [place] # (Auto) Eos # (Auto) Baso # (Auto) Seg Neutrophils % Seg Neuts % (Manual) Lymphocytes % (Manual) Seg Neutrophils # Seg Neutrophils # Man Lymphocytes # (Manual) D-Dimer ABG pH POC ABG pCO2 POC ABG pO2 ABG pO2 ABG HCO3 ABG O2 Saturation ABG Base Excess ABG Oxyhemoglobin ABG Sodium ABG Chloride ABG Glucose Oxyhemoglobin Carboxyhemoglobin Sodium Potassium Chloride Carbon Dioxide BUN Creatinine Glucose POC Glucose 159 H 180 H Hemoglobin A1c Magnesium Ferritin AST ALT Alkaline Phosphatase Lactate Dehydrogenase 558 H C-Reactive Protein 2.40 H Total Protein Albumin Arterial Blood Glucose Coronavirus (PCR) 05/09/21 05/09/21 05/10/21 16:43 21:27 10:18 WBC MCV MCH MCHC RDW Lymph % (Auto) [place] % (Auto) Eos % (Auto) Lymph # (Auto) [place] # (Auto) Eos # (Auto) Baso # (Auto) Seg Neutrophils % Seg Neuts % (Manual) Lymphocytes % (Manual) Seg Neutrophils # Seg Neutrophils # Man Lymphocytes # (Manual) D-Dimer ABG pH POC ABG pCO2 POC ABG pO2 ABG pO2 ABG HCO3 ABG O2 Saturation ABG Base Excess ABG Oxyhemoglobin ABG Sodium ABG Chloride ABG Glucose Oxyhemoglobin Carboxyhemoglobin Sodium Potassium Chloride Carbon Dioxide BUN Creatinine Glucose POC Glucose 212 H 285 H 261 H Hemoglobin A1c Magnesium Ferritin AST ALT Alkaline Phosphatase Lactate Dehydrogenase C-Reactive Protein Total Protein Albumin Arterial Blood Glucose Coronavirus (PCR) 05/10/21 05/10/21 05/11/21 17:58 18:02 00:29 WBC MCV MCH MCHC RDW Lymph % (Auto) [place] % (Auto) Eos % (Auto) Lymph # (Auto) [place] # (Auto) Eos # (Auto) Baso # (Auto) Seg Neutrophils % Seg Neuts % (Manual) Lymphocytes % (Manual) Seg Neutrophils # Seg Neutrophils # Man Lymphocytes # (Manual) D-Dimer ABG pH POC ABG pCO2 POC ABG pO2 ABG pO2 ABG HCO3 ABG O2 Saturation ABG Base Excess ABG Oxyhemoglobin ABG Sodium ABG Chloride ABG Glucose Oxyhemoglobin Carboxyhemoglobin Sodium Potassium Chloride Carbon Dioxide BUN Creatinine Glucose POC Glucose 213 H 179 H 149 H Hemoglobin A1c Magnesium Ferritin AST ALT Alkaline Phosphatase Lactate Dehydrogenase C-Reactive Protein Total Protein Albumin Arterial Blood Glucose Coronavirus (PCR) 05/11/21 05/11/21 05/11/21 05:22 11:32 17:00 WBC 14.9 H MCV MCH MCHC RDW 18.9 H Lymph % (Auto) 4.9 L [place] % (Auto) Eos % (Auto) Lymph # (Auto) 0.7 L [place] # (Auto) Eos # (Auto) Baso # (Auto) 0.2 H Seg Neutrophils % Seg Neuts % (Manual) Lymphocytes % (Manual) Seg Neutrophils # 13.3 H Seg Neutrophils # Man Lymphocytes # (Manual) D-Dimer ABG pH POC ABG pCO2 POC ABG pO2 ABG pO2 ABG HCO3 ABG O2 Saturation ABG Base Excess ABG Oxyhemoglobin ABG Sodium ABG Chloride ABG Glucose Oxyhemoglobin Carboxyhemoglobin Sodium Potassium Chloride Carbon Dioxide BUN Creatinine Glucose POC Glucose 162 H 179 H Hemoglobin A1c Magnesium Ferritin AST ALT Alkaline Phosphatase Lactate Dehydrogenase C-Reactive Protein Total Protein Albumin Arterial Blood Glucose Coronavirus (PCR) 05/11/21 05/11/21 05/11/21 17:00 17:33 22:03 WBC MCV MCH MCHC RDW Lymph % (Auto) [place] % (Auto) Eos % (Auto) Lymph # (Auto) [place] # (Auto) Eos # (Auto) Baso # (Auto) Seg Neutrophils % Seg Neuts % (Manual) Lymphocytes % (Manual) Seg Neutrophils # Seg Neutrophils # Man Lymphocytes # (Manual) D-Dimer ABG pH POC ABG pCO2 POC ABG pO2 ABG pO2 ABG HCO3 ABG O2 Saturation ABG Base Excess ABG Oxyhemoglobin ABG Sodium ABG Chloride ABG Glucose Oxyhemoglobin Carboxyhemoglobin Sodium 135 L Potassium Chloride 97.3 L Carbon Dioxide BUN 21 H Creatinine 0.3 L Glucose 133 H POC Glucose 140 H 282 H Hemoglobin A1c Magnesium Ferritin AST ALT 60 H Alkaline Phosphatase Lactate Dehydrogenase C-Reactive Protein Total Protein Albumin 3.1 L Arterial Blood Glucose Coronavirus (PCR) 05/12/21 05/12/21 05/12/21 04:05 04:05 04:05 WBC MCV MCH MCHC RDW 18.4 H Lymph % (Auto) [place] % (Auto) Eos % (Auto) Lymph # (Auto) [place] # (Auto) Eos # (Auto) Baso # (Auto) Seg Neutrophils % Seg Neuts % (Manual) 94.0 H Lymphocytes % (Manual) 4.0 L Seg Neutrophils # Seg Neutrophils # Man Lymphocytes # (Manual) 0.3 L D-Dimer ABG pH POC ABG pCO2 POC ABG pO2 ABG pO2 ABG HCO3 ABG O2 Saturation ABG Base Excess ABG Oxyhemoglobin ABG Sodium ABG Chloride ABG Glucose Oxyhemoglobin Carboxyhemoglobin Sodium 136 L Potassium Chloride Carbon Dioxide BUN 18 H Creatinine 0.2 L Glucose 142 H POC Glucose Hemoglobin A1c Magnesium Ferritin 350.7 H AST ALT Alkaline Phosphatase Lactate Dehydrogenase 546 H C-Reactive Protein Total Protein 6.1 L Albumin 3.0 L Arterial Blood Glucose Coronavirus (PCR) 05/12/21 05/12/21 05/12/21 05:11 11:17 16:27 WBC MCV MCH MCHC RDW Lymph % (Auto) [place] % (Auto) Eos % (Auto) Lymph # (Auto) [place] # (Auto) Eos # (Auto) Baso # (Auto) Seg Neutrophils % Seg Neuts % (Manual) Lymphocytes % (Manual) Seg Neutrophils # Seg Neutrophils # Man Lymphocytes # (Manual) D-Dimer ABG pH POC ABG pCO2 POC ABG pO2 ABG pO2 ABG HCO3 ABG O2 Saturation ABG Base Excess ABG Oxyhemoglobin ABG Sodium ABG Chloride ABG Glucose Oxyhemoglobin Carboxyhemoglobin Sodium Potassium Chloride Carbon Dioxide BUN Creatinine Glucose POC Glucose 152 H 190 H 261 H Hemoglobin A1c Magnesium Ferritin AST ALT Alkaline Phosphatase Lactate Dehydrogenase C-Reactive Protein Total Protein Albumin Arterial Blood Glucose Coronavirus (PCR) 05/12/21 05/13/21 05/13/21 20:55 11:08 21:41 WBC MCV MCH MCHC RDW Lymph % (Auto) [place] % (Auto) Eos % (Auto) Lymph # (Auto) [place] # (Auto) Eos # (Auto) Baso # (Auto) Seg Neutrophils % Seg Neuts % (Manual) Lymphocytes % (Manual) Seg Neutrophils # Seg Neutrophils # Man Lymphocytes # (Manual) D-Dimer ABG pH POC ABG pCO2 POC ABG pO2 ABG pO2 ABG HCO3 ABG O2 Saturation ABG Base Excess ABG Oxyhemoglobin ABG Sodium ABG Chloride ABG Glucose Oxyhemoglobin Carboxyhemoglobin Sodium Potassium Chloride Carbon Dioxide BUN Creatinine Glucose POC Glucose 231 H 106 H 174 H Hemoglobin A1c Magnesium Ferritin AST ALT Alkaline Phosphatase Lactate Dehydrogenase C-Reactive Protein Total Protein Albumin Arterial Blood Glucose Coronavirus (PCR) 05/14/21 05/14/21 05/14/21 00:53 02:23 06:06 WBC MCV MCH MCHC RDW Lymph % (Auto) [place] % (Auto) Eos % (Auto) Lymph # (Auto) [place] # (Auto) Eos # (Auto) Baso # (Auto) Seg Neutrophils % Seg Neuts % (Manual) Lymphocytes % (Manual) Seg Neutrophils # Seg Neutrophils # Man Lymphocytes # (Manual) D-Dimer ABG pH POC ABG pCO2 POC ABG pO2 ABG pO2 130.3 H ABG HCO3 30.6 H ABG O2 Saturation ABG Base Excess 4.9 H ABG Oxyhemoglobin ABG Sodium ABG Chloride ABG Glucose Oxyhemoglobin Carboxyhemoglobin Sodium Potassium Chloride Carbon Dioxide BUN Creatinine Glucose POC Glucose 229 H 119 H Hemoglobin A1c Magnesium Ferritin AST ALT Alkaline Phosphatase Lactate Dehydrogenase C-Reactive Protein Total Protein Albumin Arterial Blood Glucose Coronavirus (PCR) 05/14/21 05/14/21 05/14/21 07:13 07:13 07:13 WBC MCV MCH MCHC RDW Lymph % (Auto) [place] % (Auto) Eos % (Auto) Lymph # (Auto) [place] # (Auto) Eos # (Auto) Baso # (Auto) Seg Neutrophils % Seg Neuts % (Manual) Lymphocytes % (Manual) Seg Neutrophils # Seg Neutrophils # Man Lymphocytes # (Manual) D-Dimer 712.80 H ABG pH POC ABG pCO2 POC ABG pO2 ABG pO2 ABG HCO3 ABG O2 Saturation ABG Base Excess ABG Oxyhemoglobin ABG Sodium ABG Chloride ABG Glucose Oxyhemoglobin Carboxyhemoglobin Sodium 133 L Potassium Chloride 95.5 L Carbon Dioxide 32 H BUN Creatinine 0.2 L Glucose 137 H POC Glucose Hemoglobin A1c Magnesium Ferritin 283.5 H AST ALT 63 H Alkaline Phosphatase Lactate Dehydrogenase 563 H C-Reactive Protein Total Protein 6.1 L Albumin 3.0 L Arterial Blood Glucose Coronavirus (PCR) 05/14/21 05/14/21 05/14/21 12:21 15:33 21:50 WBC MCV MCH MCHC RDW Lymph % (Auto) [place] % (Auto) Eos % (Auto) Lymph # (Auto) [place] # (Auto) Eos # (Auto) Baso # (Auto) Seg Neutrophils % Seg Neuts % (Manual) Lymphocytes % (Manual) Seg Neutrophils # Seg Neutrophils # Man Lymphocytes # (Manual) D-Dimer ABG pH POC ABG pCO2 POC ABG pO2 ABG pO2 ABG HCO3 ABG O2 Saturation ABG Base Excess ABG Oxyhemoglobin ABG Sodium ABG Chloride ABG Glucose Oxyhemoglobin Carboxyhemoglobin Sodium Potassium Chloride Carbon Dioxide BUN Creatinine Glucose POC Glucose 143 H 204 H 202 H Hemoglobin A1c Magnesium Ferritin AST ALT Alkaline Phosphatase Lactate Dehydrogenase C-Reactive Protein Total Protein Albumin Arterial Blood Glucose Coronavirus (PCR) 05/15/21 05/15/21 05/15/21 05:05 11:12 16:39 WBC MCV MCH MCHC RDW Lymph % (Auto) [place] % (Auto) Eos % (Auto) Lymph # (Auto) [place] # (Auto) Eos # (Auto) Baso # (Auto) Seg Neutrophils % Seg Neuts % (Manual) Lymphocytes % (Manual) Seg Neutrophils # Seg Neutrophils # Man Lymphocytes # (Manual) D-Dimer ABG pH POC ABG pCO2 POC ABG pO2 ABG pO2 ABG HCO3 ABG O2 Saturation ABG Base Excess ABG Oxyhemoglobin ABG Sodium ABG Chloride ABG Glucose Oxyhemoglobin Carboxyhemoglobin Sodium Potassium Chloride Carbon Dioxide BUN Creatinine Glucose POC Glucose 125 H 201 H 241 H Hemoglobin A1c Magnesium Ferritin AST ALT Alkaline Phosphatase Lactate Dehydrogenase C-Reactive Protein Total Protein Albumin Arterial Blood Glucose Coronavirus (PCR) 05/15/21 05/16/21 05/16/21 21:31 05:04 10:40 WBC MCV MCH MCHC RDW Lymph % (Auto) [place] % (Auto) Eos % (Auto) Lymph # (Auto) [place] # (Auto) Eos # (Auto) Baso # (Auto) Seg Neutrophils % Seg Neuts % (Manual) Lymphocytes % (Manual) Seg Neutrophils # Seg Neutrophils # Man Lymphocytes # (Manual) D-Dimer ABG pH POC ABG pCO2 POC ABG pO2 ABG pO2 ABG HCO3 ABG O2 Saturation ABG Base Excess ABG Oxyhemoglobin ABG Sodium ABG Chloride ABG Glucose Oxyhemoglobin Carboxyhemoglobin Sodium Potassium Chloride Carbon Dioxide BUN Creatinine Glucose POC Glucose 234 H 123 H 231 H Hemoglobin A1c Magnesium Ferritin AST ALT Alkaline Phosphatase Lactate Dehydrogenase C-Reactive Protein Total Protein Albumin Arterial Blood Glucose Coronavirus (PCR) 05/16/21 05/16/21 05/17/21 18:23 21:29 06:20 WBC MCV MCH MCHC RDW 18.8 H Lymph % (Auto) 10.2 L [place] % (Auto) Eos % (Auto) Lymph # (Auto) 0.8 L [place] # (Auto) Eos # (Auto) Baso # (Auto) Seg Neutrophils % 85.8 H Seg Neuts % (Manual) Lymphocytes % (Manual) Seg Neutrophils # Seg Neutrophils # Man Lymphocytes # (Manual) D-Dimer ABG pH POC ABG pCO2 POC ABG pO2 ABG pO2 ABG HCO3 ABG O2 Saturation ABG Base Excess ABG Oxyhemoglobin ABG Sodium ABG Chloride ABG Glucose Oxyhemoglobin Carboxyhemoglobin Sodium Potassium Chloride Carbon Dioxide BUN Creatinine Glucose POC Glucose 266 H 234 H Hemoglobin A1c Magnesium Ferritin AST ALT Alkaline Phosphatase Lactate Dehydrogenase C-Reactive Protein Total Protein Albumin Arterial Blood Glucose Coronavirus (PCR) 05/17/21 05/17/21 05/17/21 06:20 11:06 16:36 WBC MCV MCH MCHC RDW Lymph % (Auto) [place] % (Auto) Eos % (Auto) Lymph # (Auto) [place] # (Auto) Eos # (Auto) Baso # (Auto) Seg Neutrophils % Seg Neuts % (Manual) Lymphocytes % (Manual) Seg Neutrophils # Seg Neutrophils # Man Lymphocytes # (Manual) D-Dimer ABG pH POC ABG pCO2 POC ABG pO2 ABG pO2 ABG HCO3 ABG O2 Saturation ABG Base Excess ABG Oxyhemoglobin ABG Sodium ABG Chloride ABG Glucose Oxyhemoglobin Carboxyhemoglobin Sodium Potassium Chloride Carbon Dioxide 33 H BUN Creatinine 0.2 L Glucose 101 H POC Glucose 209 H 180 H Hemoglobin A1c Magnesium Ferritin AST ALT Alkaline Phosphatase Lactate Dehydrogenase C-Reactive Protein Total Protein Albumin Arterial Blood Glucose Coronavirus (PCR) 05/17/21 05/18/21 05/18/21 21:06 12:00 15:06 WBC MCV MCH MCHC RDW Lymph % (Auto) [place] % (Auto) Eos % (Auto) Lymph # (Auto) [place] # (Auto) Eos # (Auto) Baso # (Auto) Seg Neutrophils % Seg Neuts % (Manual) Lymphocytes % (Manual) Seg Neutrophils # Seg Neutrophils # Man Lymphocytes # (Manual) D-Dimer 874.02 H ABG pH POC ABG pCO2 POC ABG pO2 ABG pO2 ABG HCO3 ABG O2 Saturation ABG Base Excess ABG Oxyhemoglobin ABG Sodium ABG Chloride ABG Glucose Oxyhemoglobin Carboxyhemoglobin Sodium Potassium Chloride Carbon Dioxide BUN Creatinine Glucose POC Glucose 256 H 139 H Hemoglobin A1c Magnesium Ferritin AST ALT Alkaline Phosphatase Lactate Dehydrogenase C-Reactive Protein Total Protein Albumin Arterial Blood Glucose Coronavirus (PCR) 05/18/21 05/18/21 05/18/21 15:06 15:06 16:08 WBC MCV MCH MCHC RDW Lymph % (Auto) [place] % (Auto) Eos % (Auto) Lymph # (Auto) [place] # (Auto) Eos # (Auto) Baso # (Auto) Seg Neutrophils % Seg Neuts % (Manual) Lymphocytes % (Manual) Seg Neutrophils # Seg Neutrophils # Man Lymphocytes # (Manual) D-Dimer ABG pH POC ABG pCO2 POC ABG pO2 ABG pO2 ABG HCO3 ABG O2 Saturation ABG Base Excess ABG Oxyhemoglobin ABG Sodium ABG Chloride ABG Glucose Oxyhemoglobin Carboxyhemoglobin Sodium Potassium Chloride Carbon Dioxide BUN Creatinine Glucose POC Glucose 178 H Hemoglobin A1c Magnesium Ferritin 289.6 H AST ALT Alkaline Phosphatase Lactate Dehydrogenase 605 H C-Reactive Protein Total Protein Albumin Arterial Blood Glucose Coronavirus (PCR) 05/18/21 05/19/21 05/19/21 21:22 11:57 15:26 WBC MCV MCH MCHC RDW Lymph % (Auto) [place] % (Auto) Eos % (Auto) Lymph # (Auto) [place] # (Auto) Eos # (Auto) Baso # (Auto) Seg Neutrophils % Seg Neuts % (Manual) Lymphocytes % (Manual) Seg Neutrophils # Seg Neutrophils # Man Lymphocytes # (Manual) D-Dimer ABG pH POC ABG pCO2 POC ABG pO2 ABG pO2 ABG HCO3 ABG O2 Saturation ABG Base Excess ABG Oxyhemoglobin ABG Sodium ABG Chloride ABG Glucose Oxyhemoglobin Carboxyhemoglobin Sodium Potassium Chloride Carbon Dioxide BUN Creatinine Glucose POC Glucose 241 H 201 H 209 H Hemoglobin A1c Magnesium Ferritin AST ALT Alkaline Phosphatase Lactate Dehydrogenase C-Reactive Protein Total Protein Albumin Arterial Blood Glucose Coronavirus (PCR) 05/19/21 05/20/21 05/20/21 20:59 07:38 08:01 WBC MCV MCH MCHC RDW 19.7 H Lymph % (Auto) 8.3 L [place] % (Auto) Eos % (Auto) Lymph # (Auto) 0.8 L [place] # (Auto) Eos # (Auto) Baso # (Auto) Seg Neutrophils % 88.6 H Seg Neuts % (Manual) Lymphocytes % (Manual) Seg Neutrophils # 8.4 H Seg Neutrophils # Man Lymphocytes # (Manual) D-Dimer ABG pH POC ABG pCO2 POC ABG pO2 ABG pO2 ABG HCO3 ABG O2 Saturation ABG Base Excess ABG Oxyhemoglobin ABG Sodium ABG Chloride ABG Glucose Oxyhemoglobin Carboxyhemoglobin Sodium Potassium Chloride Carbon Dioxide BUN Creatinine Glucose POC Glucose 226 H 130 H Hemoglobin A1c Magnesium Ferritin AST ALT Alkaline Phosphatase Lactate Dehydrogenase C-Reactive Protein Total Protein Albumin Arterial Blood Glucose Coronavirus (PCR) 05/20/21 05/20/21 05/20/21 08:01 11:00 16:43 WBC MCV MCH MCHC RDW Lymph % (Auto) [place] % (Auto) Eos % (Auto) Lymph # (Auto) [place] # (Auto) Eos # (Auto) Baso # (Auto) Seg Neutrophils % Seg Neuts % (Manual) Lymphocytes % (Manual) Seg Neutrophils # Seg Neutrophils # Man Lymphocytes # (Manual) D-Dimer ABG pH POC ABG pCO2 POC ABG pO2 ABG pO2 ABG HCO3 ABG O2 Saturation ABG Base Excess ABG Oxyhemoglobin ABG Sodium ABG Chloride ABG Glucose Oxyhemoglobin Carboxyhemoglobin Sodium Potassium Chloride Carbon Dioxide BUN 18 H Creatinine 0.2 L Glucose 132 H POC Glucose 237 H 240 H Hemoglobin A1c Magnesium Ferritin AST ALT Alkaline Phosphatase Lactate Dehydrogenase C-Reactive Protein Total Protein Albumin Arterial Blood Glucose Coronavirus (PCR) 05/20/21 05/21/21 05/21/21 21:21 07:35 11:32 WBC MCV MCH MCHC RDW Lymph % (Auto) [place] % (Auto) Eos % (Auto) Lymph # (Auto) [place] # (Auto) Eos # (Auto) Baso # (Auto) Seg Neutrophils % Seg Neuts % (Manual) Lymphocytes % (Manual) Seg Neutrophils # Seg Neutrophils # Man Lymphocytes # (Manual) D-Dimer ABG pH POC ABG pCO2 POC ABG pO2 ABG pO2 ABG HCO3 ABG O2 Saturation ABG Base Excess ABG Oxyhemoglobin ABG Sodium ABG Chloride ABG Glucose Oxyhemoglobin Carboxyhemoglobin Sodium Potassium Chloride Carbon Dioxide BUN Creatinine Glucose POC Glucose 241 H 162 H 171 H Hemoglobin A1c Magnesium Ferritin AST ALT Alkaline Phosphatase Lactate Dehydrogenase C-Reactive Protein Total Protein Albumin Arterial Blood Glucose Coronavirus (PCR) 05/21/21 05/21/21 05/22/21 16:22 20:43 05:14 WBC MCV MCH MCHC RDW Lymph % (Auto) [place] % (Auto) Eos % (Auto) Lymph # (Auto) [place] # (Auto) Eos # (Auto) Baso # (Auto) Seg Neutrophils % Seg Neuts % (Manual) Lymphocytes % (Manual) Seg Neutrophils # Seg Neutrophils # Man Lymphocytes # (Manual) D-Dimer ABG pH POC ABG pCO2 POC ABG pO2 ABG pO2 ABG HCO3 ABG O2 Saturation ABG Base Excess ABG Oxyhemoglobin ABG Sodium ABG Chloride ABG Glucose Oxyhemoglobin Carboxyhemoglobin Sodium Potassium Chloride Carbon Dioxide BUN Creatinine Glucose POC Glucose 244 H 299 H 140 H Hemoglobin A1c Magnesium Ferritin AST ALT Alkaline Phosphatase Lactate Dehydrogenase C-Reactive Protein Total Protein Albumin Arterial Blood Glucose Coronavirus (PCR) 05/22/21 05/22/21 05/22/21 08:45 11:54 16:15 WBC MCV MCH MCHC RDW Lymph % (Auto) [place] % (Auto) Eos % (Auto) Lymph # (Auto) [place] # (Auto) Eos # (Auto) Baso # (Auto) Seg Neutrophils % Seg Neuts % (Manual) Lymphocytes % (Manual) Seg Neutrophils # Seg Neutrophils # Man Lymphocytes # (Manual) D-Dimer ABG pH POC ABG pCO2 POC ABG pO2 ABG pO2 ABG HCO3 ABG O2 Saturation ABG Base Excess ABG Oxyhemoglobin ABG Sodium ABG Chloride ABG Glucose Oxyhemoglobin Carboxyhemoglobin Sodium Potassium Chloride Carbon Dioxide BUN Creatinine Glucose POC Glucose 133 H 265 H 221 H Hemoglobin A1c Magnesium Ferritin AST ALT Alkaline Phosphatase Lactate Dehydrogenase C-Reactive Protein Total Protein Albumin Arterial Blood Glucose Coronavirus (PCR) 05/22/21 05/23/21 05/23/21 21:43 08:20 09:50 WBC MCV MCH MCHC RDW Lymph % (Auto) [place] % (Auto) Eos % (Auto) Lymph # (Auto) [place] # (Auto) Eos # (Auto) Baso # (Auto) Seg Neutrophils % Seg Neuts % (Manual) Lymphocytes % (Manual) Seg Neutrophils # Seg Neutrophils # Man Lymphocytes # (Manual) D-Dimer 910.38 H ABG pH POC ABG pCO2 POC ABG pO2 ABG pO2 ABG HCO3 ABG O2 Saturation ABG Base Excess ABG Oxyhemoglobin ABG Sodium ABG Chloride ABG Glucose Oxyhemoglobin Carboxyhemoglobin Sodium Potassium Chloride Carbon Dioxide BUN Creatinine Glucose POC Glucose 262 H 140 H Hemoglobin A1c Magnesium Ferritin AST ALT Alkaline Phosphatase Lactate Dehydrogenase C-Reactive Protein Total Protein Albumin Arterial Blood Glucose Coronavirus (PCR) 05/23/21 05/23/2105/23/21 09:50 09:50 10:52 WBC MCV MCH MCHC RDW Lymph % (Auto) [place] % (Auto) Eos % (Auto) Lymph # (Auto) [place] # (Auto) Eos # (Auto) Baso # (Auto) Seg Neutrophils % Seg Neuts % (Manual) Lymphocytes % (Manual) Seg Neutrophils # Seg Neutrophils # Man Lymphocytes # (Manual) D-Dimer ABG pH POC ABG pCO2 POC ABG pO2 ABG pO2 ABG HCO3 ABG O2 Saturation ABG Base Excess ABG Oxyhemoglobin ABG Sodium ABG Chloride ABG Glucose Oxyhemoglobin Carboxyhemoglobin Sodium Potassium Chloride Carbon Dioxide BUN Creatinine Glucose POC Glucose 241 H Hemoglobin A1c Magnesium Ferritin 244.9 H AST ALT Alkaline Phosphatase Lactate Dehydrogenase 584 H C-Reactive Protein Total Protein Albumin Arterial Blood Glucose Coronavirus (PCR) 05/23/21 05/23/21 05/24/21 17:24 21:52 07:44 WBC MCV MCH MCHC RDW Lymph % (Auto) [place] % (Auto) Eos % (Auto) Lymph # (Auto) [place] # (Auto) Eos # (Auto) Baso # (Auto) Seg Neutrophils % Seg Neuts % (Manual) Lymphocytes % (Manual) Seg Neutrophils # Seg Neutrophils # Man Lymphocytes # (Manual) D-Dimer ABG pH POC ABG pCO2 POC ABG pO2 ABG pO2 ABG HCO3 ABG O2 Saturation ABG Base Excess ABG Oxyhemoglobin ABG Sodium ABG Chloride ABG Glucose Oxyhemoglobin Carboxyhemoglobin Sodium Potassium Chloride Carbon Dioxide BUN Creatinine Glucose POC Glucose 197 H 289 H 161 H Hemoglobin A1c Magnesium Ferritin AST ALT Alkaline Phosphatase Lactate Dehydrogenase C-Reactive Protein Total Protein Albumin Arterial Blood Glucose Coronavirus (PCR) 05/24/21 05/24/21 05/24/21 11:17 17:51 21:26 WBC MCV MCH MCHC RDW Lymph % (Auto) [place] % (Auto) Eos % (Auto) Lymph # (Auto) [place] # (Auto) Eos # (Auto) Baso # (Auto) Seg Neutrophils % Seg Neuts % (Manual) Lymphocytes % (Manual) Seg Neutrophils # Seg Neutrophils # Man Lymphocytes # (Manual) D-Dimer ABG pH POC ABG pCO2 POC ABG pO2 ABG pO2 ABG HCO3 ABG O2 Saturation ABG Base Excess ABG Oxyhemoglobin ABG Sodium ABG Chloride ABG Glucose Oxyhemoglobin Carboxyhemoglobin Sodium Potassium Chloride Carbon Dioxide BUN Creatinine Glucose POC Glucose 308 H 175 H 198 H Hemoglobin A1c Magnesium Ferritin AST ALT Alkaline Phosphatase Lactate Dehydrogenase C-Reactive Protein Total Protein Albumin Arterial Blood Glucose Coronavirus (PCR) 05/25/21 05/25/21 05/25/21 08:14 11:13 17:13 WBC MCV MCH MCHC RDW Lymph % (Auto) [place] % (Auto) Eos % (Auto) Lymph # (Auto) [place] # (Auto) Eos # (Auto) Baso # (Auto) Seg Neutrophils % Seg Neuts % (Manual) Lymphocytes % (Manual) Seg Neutrophils # Seg Neutrophils # Man Lymphocytes # (Manual) D-Dimer ABG pH POC ABG pCO2 POC ABG pO2 ABG pO2 ABG HCO3 ABG O2 Saturation ABG Base Excess ABG Oxyhemoglobin ABG Sodium ABG Chloride ABG Glucose Oxyhemoglobin Carboxyhemoglobin Sodium Potassium Chloride Carbon Dioxide BUN Creatinine Glucose POC Glucose 203 H 339 H 235 H Hemoglobin A1c Magnesium Ferritin AST ALT Alkaline Phosphatase Lactate Dehydrogenase C-Reactive Protein Total Protein Albumin Arterial Blood Glucose Coronavirus (PCR) 05/25/21 05/26/21 05/26/21 21:03 07:33 11:19 WBC MCV MCH MCHC RDW Lymph % (Auto) [place] % (Auto) Eos % (Auto) Lymph # (Auto) [place] # (Auto) Eos # (Auto) Baso # (Auto) Seg Neutrophils % Seg Neuts % (Manual) Lymphocytes % (Manual) Seg Neutrophils # Seg Neutrophils # Man Lymphocytes # (Manual) D-Dimer ABG pH POC ABG pCO2 POC ABG pO2 ABG pO2 ABG HCO3 ABG O2 Saturation ABG Base Excess ABG Oxyhemoglobin ABG Sodium ABG Chloride ABG Glucose Oxyhemoglobin Carboxyhemoglobin Sodium Potassium Chloride Carbon Dioxide BUN Creatinine Glucose POC Glucose 263 H 156 H 288 H Hemoglobin A1c Magnesium Ferritin AST ALT Alkaline Phosphatase Lactate Dehydrogenase C-Reactive Protein Total Protein Albumin Arterial Blood Glucose Coronavirus (PCR) 05/26/21 05/26/21 05/27/21 16:26 20:55 07:38 WBC MCV MCH MCHC RDW Lymph % (Auto) [place] % (Auto) Eos % (Auto) Lymph # (Auto) [place] # (Auto) Eos # (Auto) Baso # (Auto) Seg Neutrophils % Seg Neuts % (Manual) Lymphocytes % (Manual) Seg Neutrophils # Seg Neutrophils # Man Lymphocytes # (Manual) D-Dimer ABG pH POC ABG pCO2 POC ABG pO2 ABG pO2 ABG HCO3 ABG O2 Saturation ABG Base Excess ABG Oxyhemoglobin ABG Sodium ABG Chloride ABG Glucose Oxyhemoglobin Carboxyhemoglobin Sodium Potassium Chloride Carbon Dioxide BUN Creatinine Glucose POC Glucose 286 H 293 H 115 H Hemoglobin A1c Magnesium Ferritin AST ALT Alkaline Phosphatase Lactate Dehydrogenase C-Reactive Protein Total Protein Albumin Arterial Blood Glucose Coronavirus (PCR) 05/27/21 05/27/21 05/27/21 11:46 15:58 21:02 WBC MCV MCH MCHC RDW Lymph % (Auto) [place] % (Auto) Eos % (Auto) Lymph # (Auto) [place] # (Auto) Eos # (Auto) Baso # (Auto) Seg Neutrophils % Seg Neuts % (Manual) Lymphocytes % (Manual) Seg Neutrophils # Seg Neutrophils # Man Lymphocytes # (Manual) D-Dimer ABG pH POC ABG pCO2 POC ABG pO2 ABG pO2 ABG HCO3 ABG O2 Saturation ABG Base Excess ABG Oxyhemoglobin ABG Sodium ABG Chloride ABG Glucose Oxyhemoglobin Carboxyhemoglobin Sodium Potassium Chloride Carbon Dioxide BUN Creatinine Glucose POC Glucose 260 H 318 H 246 H Hemoglobin A1c Magnesium Ferritin AST ALT Alkaline Phosphatase Lactate Dehydrogenase C-Reactive Protein Total Protein Albumin Arterial Blood Glucose Coronavirus (PCR) 05/28/21 05/28/21 05/28/21 07:34 11:31 16:36 WBC MCV MCH MCHC RDW Lymph % (Auto) [place] % (Auto) Eos % (Auto) Lymph # (Auto) [place] # (Auto) Eos # (Auto) Baso # (Auto) Seg Neutrophils % Seg Neuts % (Manual) Lymphocytes % (Manual) Seg Neutrophils # Seg Neutrophils # Man Lymphocytes # (Manual) D-Dimer ABG pH POC ABG pCO2 POC ABG pO2 ABG pO2 ABG HCO3 ABG O2 Saturation ABG Base Excess ABG Oxyhemoglobin ABG Sodium ABG Chloride ABG Glucose Oxyhemoglobin Carboxyhemoglobin Sodium Potassium Chloride Carbon Dioxide BUN Creatinine Glucose POC Glucose 185 H 297 H 183 H Hemoglobin A1c Magnesium Ferritin AST ALT Alkaline Phosphatase Lactate Dehydrogenase C-Reactive Protein Total Protein Albumin Arterial Blood Glucose Coronavirus (PCR) 05/28/21 05/29/21 05/29/21 21:19 07:34 11:19 WBC MCV MCH MCHC RDW Lymph % (Auto) [place] % (Auto) Eos % (Auto) Lymph # (Auto) [place] # (Auto) Eos # (Auto) Baso # (Auto) Seg Neutrophils % Seg Neuts % (Manual) Lymphocytes % (Manual) Seg Neutrophils # Seg Neutrophils # Man Lymphocytes # (Manual) D-Dimer ABG pH POC ABG pCO2 POC ABG pO2 ABG pO2 ABG HCO3 ABG O2 Saturation ABG Base Excess ABG Oxyhemoglobin ABG Sodium ABG Chloride ABG Glucose Oxyhemoglobin Carboxyhemoglobin Sodium Potassium Chloride Carbon Dioxide BUN Creatinine Glucose POC Glucose 274 H 139 H 293 H Hemoglobin A1c Magnesium Ferritin AST ALT Alkaline Phosphatase Lactate Dehydrogenase C-Reactive Protein Total Protein Albumin Arterial Blood Glucose Coronavirus (PCR) 05/29/21 05/29/21 05/30/21 16:36 22:44 05:55 WBC MCV MCH MCHC RDW 21.3 H Lymph % (Auto) 8.0 L [place] % (Auto) Eos % (Auto) Lymph # (Auto) 0.6 L [place] # (Auto) Eos # (Auto) Baso # (Auto) Seg Neutrophils % 88.6 H Seg Neuts % (Manual) Lymphocytes % (Manual) Seg Neutrophils # Seg Neutrophils # Man Lymphocytes # (Manual) D-Dimer ABG pH POC ABG pCO2 POC ABG pO2 ABG pO2 ABG HCO3 ABG O2 Saturation ABG Base Excess ABG Oxyhemoglobin ABG Sodium ABG Chloride ABG Glucose Oxyhemoglobin Carboxyhemoglobin Sodium Potassium Chloride Carbon Dioxide BUN Creatinine Glucose POC Glucose 299 H 160 H Hemoglobin A1c Magnesium Ferritin AST ALT Alkaline Phosphatase Lactate Dehydrogenase C-Reactive Protein Total Protein Albumin Arterial Blood Glucose Coronavirus (PCR) 05/30/21 05/30/21 05/30/21 05:55 08:04 11:13 WBC MCV MCH MCHC RDW Lymph % (Auto) [place] % (Auto) Eos % (Auto) Lymph # (Auto) [place] # (Auto) Eos # (Auto) Baso # (Auto) Seg Neutrophils % Seg Neuts % (Manual) Lymphocytes % (Manual) Seg Neutrophils # Seg Neutrophils # Man Lymphocytes # (Manual) D-Dimer ABG pH POC ABG pCO2 POC ABG pO2 ABG pO2 ABG HCO3 ABG O2 Saturation ABG Base Excess ABG Oxyhemoglobin ABG Sodium ABG Chloride ABG Glucose Oxyhemoglobin Carboxyhemoglobin Sodium Potassium Chloride Carbon Dioxide BUN 19 H Creatinine 0.2 L Glucose 209 H POC Glucose 157 H 275 H Hemoglobin A1c Magnesium Ferritin AST ALT Alkaline Phosphatase Lactate Dehydrogenase C-Reactive Protein Total Protein Albumin Arterial Blood Glucose Coronavirus (PCR) 05/30/21 05/30/21 05/31/21 17:08 22:12 07:36 WBC MCV MCH MCHC RDW Lymph % (Auto) [place] % (Auto) Eos % (Auto) Lymph # (Auto) [place] # (Auto) Eos # (Auto) Baso # (Auto) Seg Neutrophils % Seg Neuts % (Manual) Lymphocytes % (Manual) Seg Neutrophils # Seg Neutrophils # Man Lymphocytes # (Manual) D-Dimer ABG pH POC ABG pCO2 POC ABG pO2 ABG pO2 ABG HCO3 ABG O2 Saturation ABG Base Excess ABG Oxyhemoglobin ABG Sodium ABG Chloride ABG Glucose Oxyhemoglobin Carboxyhemoglobin Sodium Potassium Chloride Carbon Dioxide BUN Creatinine Glucose POC Glucose 154 H 275 H 138 H Hemoglobin A1c Magnesium Ferritin AST ALT Alkaline Phosphatase Lactate Dehydrogenase C-Reactive Protein Total Protein Albumin Arterial Blood Glucose Coronavirus (PCR) 05/31/21 05/31/21 05/31/21 11:17 16:55 21:25 WBC MCV MCH MCHC RDW Lymph % (Auto) [place] % (Auto) Eos % (Auto) Lymph # (Auto) [place] # (Auto) Eos # (Auto) Baso # (Auto) Seg Neutrophils % Seg Neuts % (Manual) Lymphocytes % (Manual) Seg Neutrophils # Seg Neutrophils # Man Lymphocytes # (Manual) D-Dimer ABG pH POC ABG pCO2 POC ABG pO2 ABG pO2 ABG HCO3 ABG O2 Saturation ABG Base Excess ABG Oxyhemoglobin ABG Sodium ABG Chloride ABG Glucose Oxyhemoglobin Carboxyhemoglobin Sodium Potassium Chloride Carbon Dioxide BUN Creatinine Glucose POC Glucose 258 H 215 H 318 H Hemoglobin A1c Magnesium Ferritin AST ALT Alkaline Phosphatase Lactate Dehydrogenase C-Reactive Protein Total Protein Albumin Arterial Blood Glucose Coronavirus (PCR) 06/01/21 06/01/21 06/01/21 07:23 11:38 16:52 WBC MCV MCH MCHC RDW Lymph % (Auto) [place] % (Auto) Eos % (Auto) Lymph # (Auto) [place] # (Auto) Eos # (Auto) Baso # (Auto) Seg Neutrophils % Seg Neuts % (Manual) Lymphocytes % (Manual) Seg Neutrophils # Seg Neutrophils # Man Lymphocytes # (Manual) D-Dimer ABG pH POC ABG pCO2 POC ABG pO2 ABG pO2 ABG HCO3 ABG O2 Saturation ABG Base Excess ABG Oxyhemoglobin ABG Sodium ABG Chloride ABG Glucose Oxyhemoglobin Carboxyhemoglobin Sodium Potassium Chloride Carbon Dioxide BUN Creatinine Glucose POC Glucose 157 H 259 H 150 H Hemoglobin A1c Magnesium Ferritin AST ALT Alkaline Phosphatase Lactate Dehydrogenase C-Reactive Protein Total Protein Albumin Arterial Blood Glucose Coronavirus (PCR) 06/01/21 06/02/21 06/02/21 23:16 05:34 05:34 WBC MCV MCH MCHC RDW 21.3 H Lymph % (Auto) 9.6 L [place] % (Auto) Eos % (Auto) Lymph # (Auto) 0.6 L [place] # (Auto) Eos # (Auto) Baso # (Auto) Seg Neutrophils % 86.2 H Seg Neuts % (Manual) Lymphocytes % (Manual) Seg Neutrophils # Seg Neutrophils # Man Lymphocytes # (Manual) D-Dimer ABG pH POC ABG pCO2 POC ABG pO2 ABG pO2 ABG HCO3 ABG O2 Saturation ABG Base Excess ABG Oxyhemoglobin ABG Sodium ABG Chloride ABG Glucose Oxyhemoglobin Carboxyhemoglobin Sodium 136 L Potassium Chloride Carbon Dioxide BUN Creatinine 0.2 L Glucose 186 H POC Glucose 247 H Hemoglobin A1c Magnesium Ferritin AST ALT 69 H Alkaline Phosphatase Lactate Dehydrogenase C-Reactive Protein Total Protein 6.1 L Albumin 3.2 L Arterial Blood Glucose Coronavirus (PCR) 06/02/21 06/02/21 06/02/21 11:25 18:23 21:32 WBC MCV MCH MCHC RDW Lymph % (Auto) [place] % (Auto) Eos % (Auto) Lymph # (Auto) [place] # (Auto) Eos # (Auto) Baso # (Auto) Seg Neutrophils % Seg Neuts % (Manual) Lymphocytes % (Manual) Seg Neutrophils # Seg Neutrophils # Man Lymphocytes # (Manual) D-Dimer ABG pH POC ABG pCO2 POC ABG pO2 ABG pO2 ABG HCO3 ABG O2 Saturation ABG Base Excess ABG Oxyhemoglobin ABG Sodium ABG Chloride ABG Glucose Oxyhemoglobin Carboxyhemoglobin Sodium Potassium Chloride Carbon Dioxide BUN Creatinine Glucose POC Glucose 157 H 299 H 246 H Hemoglobin A1c Magnesium Ferritin AST ALT Alkaline Phosphatase Lactate Dehydrogenase C-Reactive Protein Total Protein Albumin Arterial Blood Glucose Coronavirus (PCR) 06/03/21 06/03/21 06/03/21 08:12 12:21 17:31 WBC MCV MCH MCHC RDW Lymph % (Auto) [place] % (Auto) Eos % (Auto) Lymph # (Auto) [place] # (Auto) Eos # (Auto) Baso # (Auto) Seg Neutrophils % Seg Neuts % (Manual) Lymphocytes % (Manual) Seg Neutrophils # Seg Neutrophils # Man Lymphocytes # (Manual) D-Dimer ABG pH POC ABG pCO2 POC ABG pO2 ABG pO2 ABG HCO3 ABG O2 Saturation ABG Base Excess ABG Oxyhemoglobin ABG Sodium ABG Chloride ABG Glucose Oxyhemoglobin Carboxyhemoglobin Sodium Potassium Chloride Carbon Dioxide BUN Creatinine Glucose POC Glucose 153 H 302 H 252 H Hemoglobin A1c Magnesium Ferritin AST ALT Alkaline Phosphatase Lactate Dehydrogenase C-Reactive Protein Total Protein Albumin Arterial Blood Glucose Coronavirus (PCR) 06/03/21 06/04/21 06/04/21 22:08 11:12 16:01 WBC MCV MCH MCHC RDW Lymph % (Auto) [place] % (Auto) Eos % (Auto) Lymph # (Auto) [place] # (Auto) Eos # (Auto) Baso # (Auto) Seg Neutrophils % Seg Neuts % (Manual) Lymphocytes % (Manual) Seg Neutrophils # Seg Neutrophils # Man Lymphocytes # (Manual) D-Dimer ABG pH POC ABG pCO2 POC ABG pO2 ABG pO2 ABG HCO3 ABG O2 Saturation ABG Base Excess ABG Oxyhemoglobin ABG Sodium ABG Chloride ABG Glucose Oxyhemoglobin Carboxyhemoglobin Sodium Potassium Chloride Carbon Dioxide BUN Creatinine Glucose POC Glucose 224 H 259 H 238 H Hemoglobin A1c Magnesium Ferritin AST ALT Alkaline Phosphatase Lactate Dehydrogenase C-Reactive Protein Total Protein Albumin Arterial Blood Glucose Coronavirus (PCR) 06/04/21 06/05/21 06/05/21 21:26 05:26 05:26 WBC MCV MCH MCHC RDW Lymph % (Auto) [place] % (Auto) Eos % (Auto) Lymph # (Auto) [place] # (Auto) Eos # (Auto) Baso # (Auto) Seg Neutrophils % Seg Neuts % (Manual) Lymphocytes % (Manual) Seg Neutrophils # Seg Neutrophils # Man Lymphocytes # (Manual) D-Dimer 488.49 H ABG pH POC ABG pCO2 POC ABG pO2 ABG pO2 ABG HCO3 ABG O2 Saturation ABG Base Excess ABG Oxyhemoglobin ABG Sodium ABG Chloride ABG Glucose Oxyhemoglobin Carboxyhemoglobin Sodium Potassium Chloride Carbon Dioxide BUN Creatinine 0.2 L Glucose 198 H POC Glucose 257 H Hemoglobin A1c Magnesium Ferritin AST ALT Alkaline Phosphatase Lactate Dehydrogenase 475 H C-Reactive Protein Total Protein Albumin Arterial Blood Glucose Coronavirus (PCR) 06/05/21 06/05/21 06/05/21 07:20 08:30 11:00 WBC MCV MCH MCHC RDW Lymph % (Auto) [place] % (Auto) Eos % (Auto) Lymph # (Auto) [place] # (Auto) Eos # (Auto) Baso # (Auto) Seg Neutrophils % Seg Neuts % (Manual) Lymphocytes % (Manual) Seg Neutrophils # Seg Neutrophils # Man Lymphocytes # (Manual) D-Dimer ABG pH POC ABG pCO2 POC ABG pO2 ABG pO2 ABG HCO3 ABG O2 Saturation ABG Base Excess ABG Oxyhemoglobin ABG Sodium ABG Chloride ABG Glucose Oxyhemoglobin Carboxyhemoglobin Sodium Potassium Chloride Carbon Dioxide BUN Creatinine Glucose POC Glucose 146 H 246 H Hemoglobin A1c Magnesium Ferritin AST ALT Alkaline Phosphatase Lactate Dehydrogenase C-Reactive Protein Total Protein Albumin Arterial Blood Glucose Coronavirus (PCR) Positive A 06/05/21 06/05/21 06/06/21 16:50 22:30 07:57 WBC MCV MCH MCHC RDW Lymph % (Auto) [place] % (Auto) Eos % (Auto) Lymph # (Auto) [place] # (Auto) Eos # (Auto) Baso # (Auto) Seg Neutrophils % Seg Neuts % (Manual) Lymphocytes % (Manual) Seg Neutrophils # Seg Neutrophils # Man Lymphocytes # (Manual) D-Dimer ABG pH POC ABG pCO2 POC ABG pO2 ABG pO2 ABG HCO3 ABG O2 Saturation ABG Base Excess ABG Oxyhemoglobin ABG Sodium ABG Chloride ABG Glucose Oxyhemoglobin Carboxyhemoglobin Sodium Potassium Chloride Carbon Dioxide BUN Creatinine Glucose POC Glucose 240 H 174 H 120 H Hemoglobin A1c Magnesium Ferritin AST ALT Alkaline Phosphatase Lactate Dehydrogenase C-Reactive Protein Total Protein Albumin Arterial Blood Glucose Coronavirus (PCR) 06/06/21 06/06/21 06/06/21 11:14 16:50 21:11 WBC MCV MCH MCHC RDW Lymph % (Auto) [place] % (Auto) Eos % (Auto) Lymph # (Auto) [place] # (Auto) Eos # (Auto) Baso # (Auto) Seg Neutrophils % Seg Neuts % (Manual) Lymphocytes % (Manual) Seg Neutrophils # Seg Neutrophils # Man Lymphocytes # (Manual) D-Dimer ABG pH POC ABG pCO2 POC ABG pO2 ABG pO2 ABG HCO3 ABG O2 Saturation ABG Base Excess ABG Oxyhemoglobin ABG Sodium ABG Chloride ABG Glucose Oxyhemoglobin Carboxyhemoglobin Sodium Potassium Chloride Carbon Dioxide BUN Creatinine Glucose POC Glucose 267 H 218 H 124 H Hemoglobin A1c Magnesium Ferritin AST ALT Alkaline Phosphatase Lactate Dehydrogenase C-Reactive Protein Total Protein Albumin Arterial Blood Glucose Coronavirus (PCR) 06/07/21 06/07/21 06/08/21 11:58 15:59 07:59 WBC MCV MCH MCHC RDW Lymph % (Auto) [place] % (Auto) Eos % (Auto) Lymph # (Auto) [place] # (Auto) Eos # (Auto) Baso # (Auto) Seg Neutrophils % Seg Neuts % (Manual) Lymphocytes % (Manual) Seg Neutrophils # Seg Neutrophils # Man Lymphocytes # (Manual) D-Dimer ABG pH POC ABG pCO2 POC ABG pO2 ABG pO2 ABG HCO3 ABG O2 Saturation ABG Base Excess ABG Oxyhemoglobin ABG Sodium ABG Chloride ABG Glucose Oxyhemoglobin Carboxyhemoglobin Sodium Potassium Chloride Carbon Dioxide BUN Creatinine Glucose POC Glucose 219 H 208 H 192 H Hemoglobin A1c Magnesium Ferritin AST ALT Alkaline Phosphatase Lactate Dehydrogenase C-Reactive Protein Total Protein Albumin Arterial Blood Glucose Coronavirus (PCR) 06/08/21 06/08/21 06/09/21 11:26 23:28 07:33 WBC MCV MCH MCHC RDW Lymph % (Auto) [place] % (Auto) Eos % (Auto) Lymph # (Auto) [place] # (Auto) Eos # (Auto) Baso # (Auto) Seg Neutrophils % Seg Neuts % (Manual) Lymphocytes % (Manual) Seg Neutrophils # Seg Neutrophils # Man Lymphocytes # (Manual) D-Dimer ABG pH POC ABG pCO2 POC ABG pO2 ABG pO2 ABG HCO3 ABG O2 Saturation ABG Base Excess ABG Oxyhemoglobin ABG Sodium ABG Chloride ABG Glucose Oxyhemoglobin Carboxyhemoglobin Sodium Potassium Chloride Carbon Dioxide BUN Creatinine Glucose POC Glucose 307 H 138 H 145 H Hemoglobin A1c Magnesium Ferritin AST ALT Alkaline Phosphatase Lactate Dehydrogenase C-Reactive Protein Total Protein Albumin Arterial Blood Glucose Coronavirus (PCR) 06/09/21 06/09/21 06/09/21 11:01 15:47 21:43 WBC MCV MCH MCHC RDW Lymph % (Auto) [place] % (Auto) Eos % (Auto) Lymph # (Auto) [place] # (Auto) Eos # (Auto) Baso # (Auto) Seg Neutrophils % Seg Neuts % (Manual) Lymphocytes % (Manual) Seg Neutrophils # Seg Neutrophils # Man Lymphocytes # (Manual) D-Dimer ABG pH POC ABG pCO2 POC ABG pO2 ABG pO2 ABG HCO3 ABG O2 Saturation ABG Base Excess ABG Oxyhemoglobin ABG Sodium ABG Chloride ABG Glucose Oxyhemoglobin Carboxyhemoglobin Sodium Potassium Chloride Carbon Dioxide BUN Creatinine Glucose POC Glucose 266 H 305 H 223 H Hemoglobin A1c Magnesium Ferritin AST ALT Alkaline Phosphatase Lactate Dehydrogenase C-Reactive Protein Total Protein Albumin Arterial Blood Glucose Coronavirus (PCR) 06/10/21 06/10/21 06/10/21 08:27 12:10 17:45 WBC MCV MCH MCHC RDW Lymph % (Auto) [place] % (Auto) Eos % (Auto) Lymph # (Auto) [place] # (Auto) Eos # (Auto) Baso # (Auto) Seg Neutrophils % Seg Neuts % (Manual) Lymphocytes % (Manual) Seg Neutrophils # Seg Neutrophils # Man Lymphocytes # (Manual) D-Dimer ABG pH POC ABG pCO2 POC ABG pO2 ABG pO2 ABG HCO3 ABG O2 Saturation ABG Base Excess ABG Oxyhemoglobin ABG Sodium ABG Chloride ABG Glucose Oxyhemoglobin Carboxyhemoglobin Sodium Potassium Chloride Carbon Dioxide BUN Creatinine Glucose POC Glucose 174 H 306 H 210 H Hemoglobin A1c Magnesium Ferritin AST ALT Alkaline Phosphatase Lactate Dehydrogenase C-Reactive Protein Total Protein Albumin Arterial Blood Glucose Coronavirus (PCR) 06/10/21 06/11/21 06/11/21 21:45 09:38 09:38 WBC MCV MCH MCHC RDW 20.9 H Lymph % (Auto) [place] % (Auto) Eos % (Auto) Lymph # (Auto) [place] # (Auto) Eos # (Auto) Baso # (Auto) Seg Neutrophils % Seg Neuts % (Manual) Lymphocytes % (Manual) Seg Neutrophils # Seg Neutrophils # Man Lymphocytes # (Manual) D-Dimer ABG pH POC ABG pCO2 POC ABG pO2 ABG pO2 ABG HCO3 ABG O2 Saturation ABG Base Excess ABG Oxyhemoglobin ABG Sodium ABG Chloride ABG Glucose Oxyhemoglobin Carboxyhemoglobin Sodium 135 L Potassium Chloride 90.8 L Carbon Dioxide 36 H BUN 29 H Creatinine 0.2 L Glucose 258 H POC Glucose 262 H Hemoglobin A1c Magnesium Ferritin AST ALT Alkaline Phosphatase Lactate Dehydrogenase C-Reactive Protein Total Protein Albumin Arterial Blood Glucose Coronavirus (PCR) 06/11/21 06/11/21 06/11/21 11:20 15:49 22:57 WBC MCV MCH MCHC RDW Lymph % (Auto) [place] % (Auto) Eos % (Auto) Lymph # (Auto) [place] # (Auto) Eos # (Auto) Baso # (Auto) Seg Neutrophils % Seg Neuts % (Manual) Lymphocytes % (Manual) Seg Neutrophils # Seg Neutrophils # Man Lymphocytes # (Manual) D-Dimer ABG pH POC ABG pCO2 POC ABG pO2 ABG pO2 ABG HCO3 ABG O2 Saturation ABG Base Excess ABG Oxyhemoglobin ABG Sodium ABG Chloride ABG Glucose Oxyhemoglobin Carboxyhemoglobin Sodium Potassium Chloride Carbon Dioxide BUN Creatinine Glucose POC Glucose 269 H 206 H 211 H Hemoglobin A1c Magnesium Ferritin AST ALT Alkaline Phosphatase Lactate Dehydrogenase C-Reactive Protein Total Protein Albumin Arterial Blood Glucose Coronavirus (PCR) 06/12/21 06/12/21 06/12/21 08:07 11:24 18:08 WBC MCV MCH MCHC RDW Lymph % (Auto) [place] % (Auto) Eos % (Auto) Lymph # (Auto) [place] # (Auto) Eos # (Auto) Baso # (Auto) Seg Neutrophils % Seg Neuts % (Manual) Lymphocytes % (Manual) Seg Neutrophils # Seg Neutrophils # Man Lymphocytes # (Manual) D-Dimer ABG pH POC ABG pCO2 POC ABG pO2 ABG pO2 ABG HCO3 ABG O2 Saturation ABG Base Excess ABG Oxyhemoglobin ABG Sodium ABG Chloride ABG Glucose Oxyhemoglobin Carboxyhemoglobin Sodium Potassium Chloride Carbon Dioxide BUN Creatinine Glucose POC Glucose 149 H 270 H 166 H Hemoglobin A1c Magnesium Ferritin AST ALT Alkaline Phosphatase Lactate Dehydrogenase C-Reactive Protein Total Protein Albumin Arterial Blood Glucose Coronavirus (PCR) 06/12/21 06/13/21 06/13/21 20:22 07:50 11:18 WBC MCV MCH MCHC RDW Lymph % (Auto) [place] % (Auto) Eos % (Auto) Lymph # (Auto) [place] # (Auto) Eos # (Auto) Baso # (Auto) Seg Neutrophils % Seg Neuts % (Manual) Lymphocytes % (Manual) Seg Neutrophils # Seg Neutrophils # Man Lymphocytes # (Manual) D-Dimer ABG pH POC ABG pCO2 POC ABG pO2 ABG pO2 ABG HCO3 ABG O2 Saturation ABG Base Excess ABG Oxyhemoglobin ABG Sodium ABG Chloride ABG Glucose Oxyhemoglobin Carboxyhemoglobin Sodium Potassium Chloride Carbon Dioxide BUN Creatinine Glucose POC Glucose 155 H 163 H 293 H Hemoglobin A1c Magnesium Ferritin AST ALT Alkaline Phosphatase Lactate Dehydrogenase C-Reactive Protein Total Protein Albumin Arterial Blood Glucose Coronavirus (PCR) 06/13/21 06/13/21 06/14/21 16:41 21:00 07:41 WBC MCV MCH MCHC RDW Lymph % (Auto) [place] % (Auto) Eos % (Auto) Lymph # (Auto) [place] # (Auto) Eos # (Auto) Baso # (Auto) Seg Neutrophils % Seg Neuts % (Manual) Lymphocytes % (Manual) Seg Neutrophils # Seg Neutrophils # Man Lymphocytes # (Manual) D-Dimer ABG pH POC ABG pCO2 POC ABG pO2 ABG pO2 ABG HCO3 ABG O2 Saturation ABG Base Excess ABG Oxyhemoglobin ABG Sodium ABG Chloride ABG Glucose Oxyhemoglobin Carboxyhemoglobin Sodium Potassium Chloride Carbon Dioxide BUN Creatinine Glucose POC Glucose 232 H 183 H 52 L Hemoglobin A1c Magnesium Ferritin AST ALT Alkaline Phosphatase Lactate Dehydrogenase C-Reactive Protein Total Protein Albumin Arterial Blood Glucose Coronavirus (PCR) 06/14/21 06/14/21 06/14/21 11:44 17:44 21:44 WBC MCV MCH MCHC RDW Lymph % (Auto) [place] % (Auto) Eos % (Auto) Lymph # (Auto) [place] # (Auto) Eos # (Auto) Baso # (Auto) Seg Neutrophils % Seg Neuts % (Manual) Lymphocytes % (Manual) Seg Neutrophils # Seg Neutrophils # Man Lymphocytes # (Manual) D-Dimer ABG pH POC ABG pCO2 POC ABG pO2 ABG pO2 ABG HCO3 ABG O2 Saturation ABG Base Excess ABG Oxyhemoglobin ABG Sodium ABG Chloride ABG Glucose Oxyhemoglobin Carboxyhemoglobin Sodium Potassium Chloride Carbon Dioxide BUN Creatinine Glucose POC Glucose 205 H 293 H 288 H Hemoglobin A1c Magnesium Ferritin AST ALT Alkaline Phosphatase Lactate Dehydrogenase C-Reactive Protein Total Protein Albumin Arterial Blood Glucose Coronavirus (PCR) 06/15/21 06/15/21 06/15/21 08:00 08:00 11:40 WBC MCV MCH 33 H MCHC 35 H RDW 20.3 H Lymph % (Auto) [place] % (Auto) Eos % (Auto) Lymph # (Auto) [place] # (Auto) Eos # (Auto) Baso # (Auto) Seg Neutrophils % Seg Neuts % (Manual) Lymphocytes % (Manual) Seg Neutrophils # Seg Neutrophils # Man Lymphocytes # (Manual) D-Dimer ABG pH POC ABG pCO2 POC ABG pO2 ABG pO2 ABG HCO3 ABG O2 Saturation ABG Base Excess ABG Oxyhemoglobin ABG Sodium ABG Chloride ABG Glucose Oxyhemoglobin Carboxyhemoglobin Sodium Potassium 3.2 L Chloride 95.3 L Carbon Dioxide 32 H BUN 23 H Creatinine 0.2 L Glucose 103 H POC Glucose 204 H Hemoglobin A1c Magnesium Ferritin AST ALT Alkaline Phosphatase Lactate Dehydrogenase C-Reactive Protein Total Protein Albumin Arterial Blood Glucose Coronavirus (PCR) 06/15/21 06/15/21 06/16/21 16:17 22:00 11:43 WBC MCV MCH MCHC RDW Lymph % (Auto) [place] % (Auto) Eos % (Auto) Lymph # (Auto) [place] # (Auto) Eos # (Auto) Baso # (Auto) Seg Neutrophils % Seg Neuts % (Manual) Lymphocytes % (Manual) Seg Neutrophils # Seg Neutrophils # Man Lymphocytes # (Manual) D-Dimer ABG pH POC ABG pCO2 POC ABG pO2 ABG pO2 ABG HCO3 ABG O2 Saturation ABG Base Excess ABG Oxyhemoglobin ABG Sodium ABG Chloride ABG Glucose Oxyhemoglobin Carboxyhemoglobin Sodium Potassium Chloride Carbon Dioxide BUN Creatinine Glucose POC Glucose 295 H 233 H 201 H Hemoglobin A1c Magnesium Ferritin AST ALT Alkaline Phosphatase Lactate Dehydrogenase C-Reactive Protein Total Protein Albumin Arterial Blood Glucose Coronavirus (PCR) 06/16/21 06/16/21 06/17/21 17:21 21:27 07:12 WBC MCV MCH MCHC RDW Lymph % (Auto) [place] % (Auto) Eos % (Auto) Lymph # (Auto) [place] # (Auto) Eos # (Auto) Baso # (Auto) Seg Neutrophils % Seg Neuts % (Manual) Lymphocytes % (Manual) Seg Neutrophils # Seg Neutrophils # Man Lymphocytes # (Manual) D-Dimer ABG pH POC ABG pCO2 POC ABG pO2 ABG pO2 ABG HCO3 ABG O2 Saturation ABG Base Excess ABG Oxyhemoglobin ABG Sodium ABG Chloride ABG Glucose Oxyhemoglobin Carboxyhemoglobin Sodium Potassium Chloride Carbon Dioxide BUN Creatinine Glucose POC Glucose 299 H 290 H 67 L Hemoglobin A1c Magnesium Ferritin AST ALT Alkaline Phosphatase Lactate Dehydrogenase C-Reactive Protein Total Protein Albumin Arterial Blood Glucose Coronavirus (PCR) 06/17/21 06/17/21 06/17/21 11:53 17:02 22:25 WBC MCV MCH MCHC RDW Lymph % (Auto) [place] % (Auto) Eos % (Auto) Lymph # (Auto) [place] # (Auto) Eos # (Auto) Baso # (Auto) Seg Neutrophils % Seg Neuts % (Manual) Lymphocytes % (Manual) Seg Neutrophils # Seg Neutrophils # Man Lymphocytes # (Manual) D-Dimer ABG pH POC ABG pCO2 POC ABG pO2 ABG pO2 ABG HCO3 ABG O2 Saturation ABG Base Excess ABG Oxyhemoglobin ABG Sodium ABG Chloride ABG Glucose Oxyhemoglobin Carboxyhemoglobin Sodium Potassium Chloride Carbon Dioxide BUN Creatinine Glucose POC Glucose 199 H 362 H 235 H Hemoglobin A1c Magnesium Ferritin AST ALT Alkaline Phosphatase Lactate Dehydrogenase C-Reactive Protein Total Protein Albumin Arterial Blood Glucose Coronavirus (PCR) 06/18/21 06/18/21 06/18/21 08:00 11:48 16:40 WBC MCV MCH MCHC RDW Lymph % (Auto) [place] % (Auto) Eos % (Auto) Lymph # (Auto) [place] # (Auto) Eos # (Auto) Baso # (Auto) Seg Neutrophils % Seg Neuts % (Manual) Lymphocytes % (Manual) Seg Neutrophils # Seg Neutrophils # Man Lymphocytes # (Manual) D-Dimer ABG pH POC ABG pCO2 POC ABG pO2 ABG pO2 ABG HCO3 ABG O2 Saturation ABG Base Excess ABG Oxyhemoglobin ABG Sodium ABG Chloride ABG Glucose Oxyhemoglobin Carboxyhemoglobin Sodium Potassium Chloride Carbon Dioxide BUN Creatinine Glucose POC Glucose 62 L 211 H 305 H Hemoglobin A1c Magnesium Ferritin AST ALT Alkaline Phosphatase Lactate Dehydrogenase C-Reactive Protein Total Protein Albumin Arterial Blood Glucose Coronavirus (PCR) 06/18/21 06/19/21 06/19/21 21:26 07:27 11:32 WBC MCV MCH MCHC RDW Lymph % (Auto) [place] % (Auto) Eos % (Auto) Lymph # (Auto) [place] # (Auto) Eos # (Auto) Baso # (Auto) Seg Neutrophils % Seg Neuts % (Manual) Lymphocytes % (Manual) Seg Neutrophils # Seg Neutrophils # Man Lymphocytes # (Manual) D-Dimer ABG pH POC ABG pCO2 POC ABG pO2 ABG pO2 ABG HCO3 ABG O2 Saturation ABG Base Excess ABG Oxyhemoglobin ABG Sodium ABG Chloride ABG Glucose Oxyhemoglobin Carboxyhemoglobin Sodium Potassium Chloride Carbon Dioxide BUN Creatinine Glucose POC Glucose 149 H 60 L 208 H Hemoglobin A1c Magnesium Ferritin AST ALT Alkaline Phosphatase Lactate Dehydrogenase C-Reactive Protein Total Protein Albumin Arterial Blood Glucose Coronavirus (PCR) 06/19/21 06/19/21 06/20/21 16:06 22:28 07:48 WBC MCV MCH MCHC RDW Lymph % (Auto) [place] % (Auto) Eos % (Auto) Lymph # (Auto) [place] # (Auto) Eos # (Auto) Baso # (Auto) Seg Neutrophils % Seg Neuts % (Manual) Lymphocytes % (Manual) Seg Neutrophils # Seg Neutrophils # Man Lymphocytes # (Manual) D-Dimer ABG pH POC ABG pCO2 POC ABG pO2 ABG pO2 ABG HCO3 ABG O2 Saturation ABG Base Excess ABG Oxyhemoglobin ABG Sodium ABG Chloride ABG Glucose Oxyhemoglobin Carboxyhemoglobin Sodium Potassium Chloride Carbon Dioxide BUN Creatinine Glucose POC Glucose 266 H 166 H 58 L Hemoglobin A1c Magnesium Ferritin AST ALT Alkaline Phosphatase Lactate Dehydrogenase C-Reactive Protein Total Protein Albumin Arterial Blood Glucose Coronavirus (PCR) 06/20/21 06/20/21 06/20/21 09:09 11:04 16:01 WBC MCV MCH MCHC RDW Lymph % (Auto) [place] % (Auto) Eos % (Auto) Lymph # (Auto) [place] # (Auto) Eos # (Auto) Baso # (Auto) Seg Neutrophils % Seg Neuts % (Manual) Lymphocytes % (Manual) Seg Neutrophils # Seg Neutrophils # Man Lymphocytes # (Manual) D-Dimer ABG pH POC ABG pCO2 POC ABG pO2 ABG pO2 ABG HCO3 ABG O2 Saturation ABG Base Excess ABG Oxyhemoglobin ABG Sodium ABG Chloride ABG Glucose Oxyhemoglobin Carboxyhemoglobin Sodium Potassium Chloride Carbon Dioxide BUN Creatinine Glucose POC Glucose 146 H 225 H 330 H Hemoglobin A1c Magnesium Ferritin AST ALT Alkaline Phosphatase Lactate Dehydrogenase C-Reactive Protein Total Protein Albumin Arterial Blood Glucose Coronavirus (PCR) 06/20/21 06/21/21 06/21/21 20:46 06:45 06:45 WBC MCV MCH MCHC RDW 20.0 H Lymph % (Auto) [place] % (Auto) Eos % (Auto) Lymph # (Auto) [place] # (Auto) Eos # (Auto) Baso # (Auto) Seg Neutrophils % Seg Neuts % (Manual) Lymphocytes % (Manual) Seg Neutrophils # Seg Neutrophils # Man Lymphocytes # (Manual) D-Dimer ABG pH POC ABG pCO2 POC ABG pO2 ABG pO2 ABG HCO3 ABG O2 Saturation ABG Base Excess ABG Oxyhemoglobin ABG Sodium ABG Chloride ABG Glucose Oxyhemoglobin Carboxyhemoglobin Sodium Potassium 2.9 L* Chloride 95.0 L Carbon Dioxide 31 H BUN 23 H Creatinine 0.2 L Glucose 45 L POC Glucose 215 H Hemoglobin A1c Magnesium Ferritin AST ALT Alkaline Phosphatase Lactate Dehydrogenase C-Reactive Protein Total Protein Albumin Arterial Blood Glucose Coronavirus (PCR) 06/21/21 06/21/21 06/21/21 07:38 09:06 12:40 WBC MCV MCH MCHC RDW Lymph % (Auto) [place] % (Auto) Eos % (Auto) Lymph # (Auto) [place] # (Auto) Eos # (Auto) Baso # (Auto) Seg Neutrophils % Seg Neuts % (Manual) Lymphocytes % (Manual) Seg Neutrophils # Seg Neutrophils # Man Lymphocytes # (Manual) D-Dimer ABG pH POC ABG pCO2 POC ABG pO2 ABG pO2 ABG HCO3 ABG O2 Saturation ABG Base Excess ABG Oxyhemoglobin ABG Sodium ABG Chloride ABG Glucose Oxyhemoglobin Carboxyhemoglobin Sodium Potassium Chloride Carbon Dioxide BUN Creatinine Glucose POC Glucose 50 L 196 H 205 H Hemoglobin A1c Magnesium Ferritin AST ALT Alkaline Phosphatase Lactate Dehydrogenase C-Reactive Protein Total Protein Albumin Arterial Blood Glucose Coronavirus (PCR) 06/21/21 06/22/21 06/22/21 21:36 06:25 07:15 WBC MCV MCH MCHC RDW Lymph % (Auto) [place] % (Auto) Eos % (Auto) Lymph # (Auto) [place] # (Auto) Eos # (Auto) Baso # (Auto) Seg Neutrophils % Seg Neuts % (Manual) Lymphocytes % (Manual) Seg Neutrophils # Seg Neutrophils # Man Lymphocytes # (Manual) D-Dimer ABG pH POC ABG pCO2 POC ABG pO2 ABG pO2 ABG HCO3 ABG O2 Saturation ABG Base Excess ABG Oxyhemoglobin ABG Sodium ABG Chloride ABG Glucose Oxyhemoglobin Carboxyhemoglobin Sodium Potassium Chloride Carbon Dioxide BUN 20 H Creatinine 0.2 L Glucose POC Glucose 245 H 66 L Hemoglobin A1c Magnesium Ferritin AST ALT Alkaline Phosphatase Lactate Dehydrogenase C-Reactive Protein Total Protein Albumin Arterial Blood Glucose Coronavirus (PCR) 06/22/21 06/22/21 06/22/21 11:03 16:07 22:03 WBC MCV MCH MCHC RDW Lymph % (Auto) [place] % (Auto) Eos % (Auto) Lymph # (Auto) [place] # (Auto) Eos # (Auto) Baso # (Auto) Seg Neutrophils % Seg Neuts % (Manual) Lymphocytes % (Manual) Seg Neutrophils # Seg Neutrophils # Man Lymphocytes # (Manual) D-Dimer ABG pH POC ABG pCO2 POC ABG pO2 ABG pO2 ABG HCO3 ABG O2 Saturation ABG Base Excess ABG Oxyhemoglobin ABG Sodium ABG Chloride ABG Glucose Oxyhemoglobin Carboxyhemoglobin Sodium Potassium Chloride Carbon Dioxide BUN Creatinine Glucose POC Glucose 184 H 326 H 138 H Hemoglobin A1c Magnesium Ferritin AST ALT Alkaline Phosphatase Lactate Dehydrogenase C-Reactive Protein Total Protein Albumin Arterial Blood Glucose Coronavirus (PCR) 06/23/21 06/23/21 06/23/21 07:19 10:34 16:35 WBC MCV MCH MCHC RDW Lymph % (Auto) [place] % (Auto) Eos % (Auto) Lymph # (Auto) [place] # (Auto) Eos # (Auto) Baso # (Auto) Seg Neutrophils % Seg Neuts % (Manual) Lymphocytes % (Manual) Seg Neutrophils # Seg Neutrophils # Man Lymphocytes # (Manual) D-Dimer ABG pH POC ABG pCO2 POC ABG pO2 ABG pO2 ABG HCO3 ABG O2 Saturation ABG Base Excess ABG Oxyhemoglobin ABG Sodium ABG Chloride ABG Glucose Oxyhemoglobin Carboxyhemoglobin Sodium Potassium Chloride Carbon Dioxide BUN Creatinine Glucose POC Glucose 69 L 218 H 326 H Hemoglobin A1c Magnesium Ferritin AST ALT Alkaline Phosphatase Lactate Dehydrogenase C-Reactive Protein Total Protein Albumin Arterial Blood Glucose Coronavirus (PCR) 06/23/21 06/24/21 06/24/21 22:44 11:41 16:54 WBC MCV MCH MCHC RDW Lymph % (Auto) [place] % (Auto) Eos % (Auto) Lymph # (Auto) [place] # (Auto) Eos # (Auto) Baso # (Auto) Seg Neutrophils % Seg Neuts % (Manual) Lymphocytes % (Manual) Seg Neutrophils # Seg Neutrophils # Man Lymphocytes # (Manual) D-Dimer ABG pH POC ABG pCO2 POC ABG pO2 ABG pO2 ABG HCO3 ABG O2 Saturation ABG Base Excess ABG Oxyhemoglobin ABG Sodium ABG Chloride ABG Glucose Oxyhemoglobin Carboxyhemoglobin Sodium Potassium Chloride Carbon Dioxide BUN Creatinine Glucose POC Glucose 252 H 217 H 357 H Hemoglobin A1c Magnesium Ferritin AST ALT Alkaline Phosphatase Lactate Dehydrogenase C-Reactive Protein Total Protein Albumin Arterial Blood Glucose Coronavirus (PCR) 06/24/21 06/25/21 06/25/21 20:40 11:51 16:47 WBC MCV MCH MCHC RDW Lymph % (Auto) [place] % (Auto) Eos % (Auto) Lymph # (Auto) [place] # (Auto) Eos # (Auto) Baso # (Auto) Seg Neutrophils % Seg Neuts % (Manual) Lymphocytes % (Manual) Seg Neutrophils # Seg Neutrophils # Man Lymphocytes # (Manual) D-Dimer ABG pH POC ABG pCO2 POC ABG pO2 ABG pO2 ABG HCO3 ABG O2 Saturation ABG Base Excess ABG Oxyhemoglobin ABG Sodium ABG Chloride ABG Glucose Oxyhemoglobin Carboxyhemoglobin Sodium Potassium Chloride Carbon Dioxide BUN Creatinine Glucose POC Glucose 239 H 182 H 229 H Hemoglobin A1c Magnesium Ferritin AST ALT Alkaline Phosphatase Lactate Dehydrogenase C-Reactive Protein Total Protein Albumin Arterial Blood Glucose Coronavirus (PCR) 06/25/21 06/26/21 06/26/21 22:27 07:20 12:19 WBC MCV MCH MCHC RDW Lymph % (Auto) [place] % (Auto) Eos % (Auto) Lymph # (Auto) [place] # (Auto) Eos # (Auto) Baso # (Auto) Seg Neutrophils % Seg Neuts % (Manual) Lymphocytes % (Manual) Seg Neutrophils # Seg Neutrophils # Man Lymphocytes # (Manual) D-Dimer ABG pH POC ABG pCO2 POC ABG pO2 ABG pO2 ABG HCO3 ABG O2 Saturation ABG Base Excess ABG Oxyhemoglobin ABG Sodium ABG Chloride ABG Glucose Oxyhemoglobin Carboxyhemoglobin Sodium Potassium 3.2 L D Chloride Carbon Dioxide BUN 20 H Creatinine 0.3 L Glucose POC Glucose 209 H 273 H Hemoglobin A1c Magnesium Ferritin AST ALT 77 H Alkaline Phosphatase Lactate Dehydrogenase C-Reactive Protein Total Protein Albumin 3.3 L Arterial Blood Glucose Coronavirus (PCR) 06/26/21 06/26/21 06/27/21 16:52 20:55 07:14 WBC MCV MCH MCHC RDW Lymph % (Auto) [place] % (Auto) Eos % (Auto) Lymph # (Auto) [place] # (Auto) Eos # (Auto) Baso # (Auto) Seg Neutrophils % Seg Neuts % (Manual) Lymphocytes % (Manual) Seg Neutrophils # Seg Neutrophils # Man Lymphocytes # (Manual) D-Dimer ABG pH POC ABG pCO2 POC ABG pO2 ABG pO2 ABG HCO3 ABG O2 Saturation ABG Base Excess ABG Oxyhemoglobin ABG Sodium ABG Chloride ABG Glucose Oxyhemoglobin Carboxyhemoglobin Sodium Potassium Chloride Carbon Dioxide 31 H BUN 19 H Creatinine 0.2 L Glucose 112 H POC Glucose 326 H 220 H Hemoglobin A1c Magnesium Ferritin AST ALT Alkaline Phosphatase Lactate Dehydrogenase C-Reactive Protein Total Protein Albumin Arterial Blood Glucose Coronavirus (PCR) 06/27/21 06/27/21 06/27/21 07:29 10:54 15:49 WBC MCV MCH MCHC RDW Lymph % (Auto) [place] % (Auto) Eos % (Auto) Lymph # (Auto) [place] # (Auto) Eos # (Auto) Baso # (Auto) Seg Neutrophils % Seg Neuts % (Manual) Lymphocytes % (Manual) Seg Neutrophils # Seg Neutrophils # Man Lymphocytes # (Manual) D-Dimer ABG pH POC ABG pCO2 POC ABG pO2 ABG pO2 ABG HCO3 ABG O2 Saturation ABG Base Excess ABG Oxyhemoglobin ABG Sodium ABG Chloride ABG Glucose Oxyhemoglobin Carboxyhemoglobin Sodium Potassium Chloride Carbon Dioxide BUN Creatinine Glucose POC Glucose 115 H 228 H 240 H Hemoglobin A1c Magnesium Ferritin AST ALT Alkaline Phosphatase Lactate Dehydrogenase C-Reactive Protein Total Protein Albumin Arterial Blood Glucose Coronavirus (PCR) 06/28/21 06/28/21 06/28/21 05:43 05:43 07:13 WBC MCV MCH 33 H MCHC RDW 19.8 H Lymph % (Auto) [place] % (Auto) Eos % (Auto) Lymph # (Auto) [place] # (Auto) Eos # (Auto) Baso # (Auto) Seg Neutrophils % Seg Neuts % (Manual) Lymphocytes % (Manual) Seg Neutrophils # Seg Neutrophils # Man Lymphocytes # (Manual) D-Dimer ABG pH POC ABG pCO2 POC ABG pO2 ABG pO2 ABG HCO3 ABG O2 Saturation ABG Base Excess ABG Oxyhemoglobin ABG Sodium ABG Chloride ABG Glucose Oxyhemoglobin Carboxyhemoglobin Sodium Potassium 3.3 L Chloride Carbon Dioxide BUN 22 H Creatinine 0.2 L Glucose POC Glucose 69 L Hemoglobin A1c Magnesium Ferritin AST ALT 63 H Alkaline Phosphatase Lactate Dehydrogenase C-Reactive Protein Total Protein Albumin 3.3 L Arterial Blood Glucose Coronavirus (PCR) 06/28/21 06/28/21 06/28/21 12:18 15:37 21:01 WBC MCV MCH MCHC RDW Lymph % (Auto) [place] % (Auto) Eos % (Auto) Lymph # (Auto) [place] # (Auto) Eos # (Auto) Baso # (Auto) Seg Neutrophils % Seg Neuts % (Manual) Lymphocytes % (Manual) Seg Neutrophils # Seg Neutrophils # Man Lymphocytes # (Manual) D-Dimer ABG pH POC ABG pCO2 POC ABG pO2 ABG pO2 ABG HCO3 ABG O2 Saturation ABG Base Excess ABG Oxyhemoglobin ABG Sodium ABG Chloride ABG Glucose Oxyhemoglobin Carboxyhemoglobin Sodium Potassium Chloride Carbon Dioxide BUN Creatinine Glucose POC Glucose 154 H 201 H 191 H Hemoglobin A1c Magnesium Ferritin AST ALT Alkaline Phosphatase Lactate Dehydrogenase C-Reactive Protein Total Protein Albumin Arterial Blood Glucose Coronavirus (PCR) 06/29/21 06/29/21 06/29/21 11:55 15:47 21:06 WBC MCV MCH MCHC RDW Lymph % (Auto) [place] % (Auto) Eos % (Auto) Lymph # (Auto) [place] # (Auto) Eos # (Auto) Baso # (Auto) Seg Neutrophils % Seg Neuts % (Manual) Lymphocytes % (Manual) Seg Neutrophils # Seg Neutrophils # Man Lymphocytes # (Manual) D-Dimer ABG pH POC ABG pCO2 POC ABG pO2 ABG pO2 ABG HCO3 ABG O2 Saturation ABG Base Excess ABG Oxyhemoglobin ABG Sodium ABG Chloride ABG Glucose Oxyhemoglobin Carboxyhemoglobin Sodium Potassium Chloride Carbon Dioxide BUN Creatinine Glucose POC Glucose 238 H 249 H 155 H Hemoglobin A1c Magnesium Ferritin AST ALT Alkaline Phosphatase Lactate Dehydrogenase C-Reactive Protein Total Protein Albumin Arterial Blood Glucose Coronavirus (PCR) 06/30/21 06/30/21 06/30/21 04:00 07:50 11:50 WBC MCV MCH MCHC RDW Lymph % (Auto) [place] % (Auto) Eos % (Auto) Lymph # (Auto) [place] # (Auto) Eos # (Auto) Baso # (Auto) Seg Neutrophils % Seg Neuts % (Manual) Lymphocytes % (Manual) Seg Neutrophils # Seg Neutrophils # Man Lymphocytes # (Manual) D-Dimer ABG pH POC ABG pCO2 POC ABG pO2 ABG pO2 ABG HCO3 ABG O2 Saturation ABG Base Excess ABG Oxyhemoglobin ABG Sodium ABG Chloride ABG Glucose Oxyhemoglobin Carboxyhemoglobin Sodium Potassium 3.5 L Chloride Carbon Dioxide BUN 18 H Creatinine 0.3 L Glucose 111 H POC Glucose 117 H 250 H Hemoglobin A1c Magnesium Ferritin AST ALT Alkaline Phosphatase Lactate Dehydrogenase C-Reactive Protein Total Protein Albumin Arterial Blood Glucose Coronavirus (PCR) 06/30/21 06/30/21 07/01/21 16:05 21:02 07:26 WBC MCV MCH MCHC RDW Lymph % (Auto) [place] % (Auto) Eos % (Auto) Lymph # (Auto) [place] # (Auto) Eos # (Auto) Baso # (Auto) Seg Neutrophils % Seg Neuts % (Manual) Lymphocytes % (Manual) Seg Neutrophils # Seg Neutrophils # Man Lymphocytes # (Manual) D-Dimer ABG pH POC ABG pCO2 POC ABG pO2 ABG pO2 ABG HCO3 ABG O2 Saturation ABG Base Excess ABG Oxyhemoglobin ABG Sodium ABG Chloride ABG Glucose Oxyhemoglobin Carboxyhemoglobin Sodium Potassium Chloride Carbon Dioxide BUN Creatinine Glucose POC Glucose 250 H 217 H 111 H Hemoglobin A1c Magnesium Ferritin AST ALT Alkaline Phosphatase Lactate Dehydrogenase C-Reactive Protein Total Protein Albumin Arterial Blood Glucose Coronavirus (PCR) 07/01/21 07/01/21 07/01/21 11:06 15:48 21:31 WBC MCV MCH MCHC RDW Lymph % (Auto) [place] % (Auto) Eos % (Auto) Lymph # (Auto) [place] # (Auto) Eos # (Auto) Baso # (Auto) Seg Neutrophils % Seg Neuts % (Manual) Lymphocytes % (Manual) Seg Neutrophils # Seg Neutrophils # Man Lymphocytes # (Manual) D-Dimer ABG pH POC ABG pCO2 POC ABG pO2 ABG pO2 ABG HCO3 ABG O2 Saturation ABG Base Excess ABG Oxyhemoglobin ABG Sodium ABG Chloride ABG Glucose Oxyhemoglobin Carboxyhemoglobin Sodium Potassium Chloride Carbon Dioxide BUN Creatinine Glucose POC Glucose 229 H 239 H 199 H Hemoglobin A1c Magnesium Ferritin AST ALT Alkaline Phosphatase Lactate Dehydrogenase C-Reactive Protein Total Protein Albumin Arterial Blood Glucose Coronavirus (PCR) 07/02/21 07/02/21 07/02/21 11:50 16:44 21:49 WBC MCV MCH MCHC RDW Lymph % (Auto) [place] % (Auto) Eos % (Auto) Lymph # (Auto) [place] # (Auto) Eos # (Auto) Baso # (Auto) Seg Neutrophils % Seg Neuts % (Manual) Lymphocytes % (Manual) Seg Neutrophils # Seg Neutrophils # Man Lymphocytes # (Manual) D-Dimer ABG pH POC ABG pCO2 POC ABG pO2 ABG pO2 ABG HCO3 ABG O2 Saturation ABG Base Excess ABG Oxyhemoglobin ABG Sodium ABG Chloride ABG Glucose Oxyhemoglobin Carboxyhemoglobin Sodium Potassium Chloride Carbon Dioxide BUN Creatinine Glucose POC Glucose 230 H 203 H 197 H Hemoglobin A1c Magnesium Ferritin AST ALT Alkaline Phosphatase Lactate Dehydrogenase C-Reactive Protein Total Protein Albumin Arterial Blood Glucose Coronavirus (PCR) 07/03/21 07/03/21 07/03/21 05:46 05:46 11:59 WBC MCV MCH MCHC RDW 19.6 H Lymph % (Auto) [place] % (Auto) Eos % (Auto) Lymph # (Auto) [place] # (Auto) Eos # (Auto) Baso # (Auto) Seg Neutrophils % Seg Neuts % (Manual) Lymphocytes % (Manual) Seg Neutrophils # Seg Neutrophils # Man Lymphocytes # (Manual) D-Dimer ABG pH POC ABG pCO2 POC ABG pO2 ABG pO2 ABG HCO3 ABG O2 Saturation ABG Base Excess ABG Oxyhemoglobin ABG Sodium ABG Chloride ABG Glucose Oxyhemoglobin Carboxyhemoglobin Sodium Potassium 3.2 L Chloride Carbon Dioxide BUN Creatinine 0.3 L Glucose POC Glucose 145 H Hemoglobin A1c Magnesium Ferritin AST ALT Alkaline Phosphatase Lactate Dehydrogenase C-Reactive Protein Total Protein Albumin Arterial Blood Glucose Coronavirus (PCR) 07/03/21 07/03/21 07/04/21 16:40 22:00 06:35 WBC MCV MCH MCHC RDW Lymph % (Auto) [place] % (Auto) Eos % (Auto) Lymph # (Auto) [place] # (Auto) Eos # (Auto) Baso # (Auto) Seg Neutrophils % Seg Neuts % (Manual) Lymphocytes % (Manual) Seg Neutrophils # Seg Neutrophils # Man Lymphocytes # (Manual) D-Dimer ABG pH POC ABG pCO2 POC ABG pO2 ABG pO2 ABG HCO3 ABG O2 Saturation ABG Base Excess ABG Oxyhemoglobin ABG Sodium ABG Chloride ABG Glucose Oxyhemoglobin Carboxyhemoglobin Sodium Potassium Chloride Carbon Dioxide BUN Creatinine 0.3 L Glucose 118 H POC Glucose 176 H 127 H Hemoglobin A1c Magnesium Ferritin AST ALT Alkaline Phosphatase Lactate Dehydrogenase C-Reactive Protein Total Protein Albumin Arterial Blood Glucose Coronavirus (PCR) 07/04/21 07/04/21 07/05/21 12:30 16:38 08:37 WBC MCV MCH MCHC RDW Lymph % (Auto) [place] % (Auto) Eos % (Auto) Lymph # (Auto) [place] # (Auto) Eos # (Auto) Baso # (Auto) Seg Neutrophils % Seg Neuts % (Manual) Lymphocytes % (Manual) Seg Neutrophils # Seg Neutrophils # Man Lymphocytes # (Manual) D-Dimer ABG pH POC ABG pCO2 POC ABG pO2 ABG pO2 ABG HCO3 ABG O2 Saturation ABG Base Excess ABG Oxyhemoglobin ABG Sodium ABG Chloride ABG Glucose Oxyhemoglobin Carboxyhemoglobin Sodium Potassium Chloride Carbon Dioxide BUN Creatinine Glucose POC Glucose 162 H 205 H 115 H Hemoglobin A1c Magnesium Ferritin AST ALT Alkaline Phosphatase Lactate Dehydrogenase C-Reactive Protein Total Protein Albumin Arterial Blood Glucose Coronavirus (PCR) 07/05/21 07/05/21 07/05/21 10:57 16:42 21:14 WBC MCV MCH MCHC RDW Lymph % (Auto) [place] % (Auto) Eos % (Auto) Lymph # (Auto) [place] # (Auto) Eos # (Auto) Baso # (Auto) Seg Neutrophils % Seg Neuts % (Manual) Lymphocytes % (Manual) Seg Neutrophils # Seg Neutrophils # Man Lymphocytes # (Manual) D-Dimer ABG pH POC ABG pCO2 POC ABG pO2 ABG pO2 ABG HCO3 ABG O2 Saturation ABG Base Excess ABG Oxyhemoglobin ABG Sodium ABG Chloride ABG Glucose Oxyhemoglobin Carboxyhemoglobin Sodium Potassium Chloride Carbon Dioxide BUN Creatinine Glucose POC Glucose 151 H 184 H 130 H Hemoglobin A1c Magnesium Ferritin AST ALT Alkaline Phosphatase Lactate Dehydrogenase C-Reactive Protein Total Protein Albumin Arterial Blood Glucose Coronavirus (PCR) 07/06/21 07/06/21 07/06/21 07:31 11:49 16:46 WBC MCV MCH MCHC RDW Lymph % (Auto) [place] % (Auto) Eos % (Auto) Lymph # (Auto) [place] # (Auto) Eos # (Auto) Baso # (Auto) Seg Neutrophils % Seg Neuts % (Manual) Lymphocytes % (Manual) Seg Neutrophils # Seg Neutrophils # Man Lymphocytes # (Manual) D-Dimer ABG pH POC ABG pCO2 POC ABG pO2 ABG pO2 ABG HCO3 ABG O2 Saturation ABG Base Excess ABG Oxyhemoglobin ABG Sodium ABG Chloride ABG Glucose Oxyhemoglobin Carboxyhemoglobin Sodium Potassium Chloride Carbon Dioxide BUN Creatinine Glucose POC Glucose 106 H 173 H 205 H Hemoglobin A1c Magnesium Ferritin AST ALT Alkaline Phosphatase Lactate Dehydrogenase C-Reactive Protein Total Protein Albumin Arterial Blood Glucose Coronavirus (PCR) 07/06/21 07/07/21 07/07/21 21:38 06:00 06:00 WBC 16.1 H MCV MCH MCHC RDW 18.8 H Lymph % (Auto) [place] % (Auto) Eos % (Auto) Lymph # (Auto) [place] # (Auto) 1.1 H Eos # (Auto) Baso # (Auto) 0.2 H Seg Neutrophils % 74.9 H Seg Neuts % (Manual) Lymphocytes % (Manual) Seg Neutrophils # 12.1 H Seg Neutrophils # Man Lymphocytes # (Manual) D-Dimer ABG pH POC ABG pCO2 POC ABG pO2 ABG pO2 ABG HCO3 ABG O2 Saturation ABG Base Excess ABG Oxyhemoglobin ABG Sodium ABG Chloride ABG Glucose Oxyhemoglobin Carboxyhemoglobin Sodium Potassium 3.5 L D Chloride Carbon Dioxide BUN 6 L Creatinine < 0.2 L Glucose 106 H POC Glucose 120 H Hemoglobin A1c Magnesium Ferritin AST ALT Alkaline Phosphatase Lactate Dehydrogenase C-Reactive Protein Total Protein Albumin Arterial Blood Glucose Coronavirus (PCR) 07/07/21 07/07/21 07/07/21 07:10 11:53 15:53 WBC MCV MCH MCHC RDW Lymph % (Auto) [place] % (Auto) Eos % (Auto) Lymph # (Auto) [place] # (Auto) Eos # (Auto) Baso # (Auto) Seg Neutrophils % Seg Neuts % (Manual) Lymphocytes % (Manual) Seg Neutrophils # Seg Neutrophils # Man Lymphocytes # (Manual) D-Dimer ABG pH POC ABG pCO2 POC ABG pO2 ABG pO2 ABG HCO3 ABG O2 Saturation ABG Base Excess ABG Oxyhemoglobin ABG Sodium ABG Chloride ABG Glucose Oxyhemoglobin Carboxyhemoglobin Sodium Potassium Chloride Carbon Dioxide BUN Creatinine Glucose POC Glucose 132 H 169 H 242 H Hemoglobin A1c Magnesium Ferritin AST ALT Alkaline Phosphatase Lactate Dehydrogenase C-Reactive Protein Total Protein Albumin Arterial Blood Glucose Coronavirus (PCR) 07/07/21 07/08/21 07/08/21 21:41 08:09 12:20 WBC MCV MCH MCHC RDW Lymph % (Auto) [place] % (Auto) Eos % (Auto) Lymph # (Auto) [place] # (Auto) Eos # (Auto) Baso # (Auto) Seg Neutrophils % Seg Neuts % (Manual) Lymphocytes % (Manual) Seg Neutrophils # Seg Neutrophils # Man Lymphocytes # (Manual) D-Dimer ABG pH POC ABG pCO2 POC ABG pO2 ABG pO2 ABG HCO3 ABG O2 Saturation ABG Base Excess ABG Oxyhemoglobin ABG Sodium ABG Chloride ABG Glucose Oxyhemoglobin Carboxyhemoglobin Sodium Potassium Chloride Carbon Dioxide BUN Creatinine Glucose POC Glucose 128 H 132 H 179 H Hemoglobin A1c Magnesium Ferritin AST ALT Alkaline Phosphatase Lactate Dehydrogenase C-Reactive Protein Total Protein Albumin Arterial Blood Glucose Coronavirus (PCR) 07/08/21 07/08/21 07/08/21 16:37 21:45 22:44 WBC MCV MCH MCHC RDW Lymph % (Auto) [place] % (Auto) Eos % (Auto) Lymph # (Auto) [place] # (Auto) Eos # (Auto) Baso # (Auto) Seg Neutrophils % Seg Neuts % (Manual) Lymphocytes % (Manual) Seg Neutrophils # Seg Neutrophils # Man Lymphocytes # (Manual) D-Dimer ABG pH POC ABG pCO2 POC ABG pO2 ABG pO2 ABG HCO3 ABG O2 Saturation ABG Base Excess ABG Oxyhemoglobin ABG Sodium ABG Chloride ABG Glucose Oxyhemoglobin Carboxyhemoglobin Sodium Potassium Chloride Carbon Dioxide BUN Creatinine Glucose POC Glucose 192 H 51 L 137 H Hemoglobin A1c Magnesium Ferritin AST ALT Alkaline Phosphatase Lactate Dehydrogenase C-Reactive Protein Total Protein Albumin Arterial Blood Glucose Coronavirus (PCR) 07/09/21 07/09/21 07/09/21 04:45 04:45 04:45 WBC MCV MCH MCHC RDW 18.3 H Lymph % (Auto) [place] % (Auto) Eos % (Auto) Lymph # (Auto) [place] # (Auto) Eos # (Auto) Baso # (Auto) Seg Neutrophils % Seg Neuts % (Manual) 82.0 H Lymphocytes % (Manual) 13.0 L Seg Neutrophils # Seg Neutrophils # Man 7.8 H Lymphocytes # (Manual) D-Dimer 638.35 H ABG pH POC ABG pCO2 POC ABG pO2 ABG pO2 ABG HCO3 ABG O2 Saturation ABG Base Excess ABG Oxyhemoglobin ABG Sodium ABG Chloride ABG Glucose Oxyhemoglobin Carboxyhemoglobin Sodium Potassium Chloride 96.9 L Carbon Dioxide 35 H BUN Creatinine 0.2 L Glucose 135 H POC Glucose Hemoglobin A1c Magnesium Ferritin AST ALT Alkaline Phosphatase Lactate Dehydrogenase C-Reactive Protein 4.30 H Total Protein Albumin Arterial Blood Glucose Coronavirus (PCR) 07/09/21 07/09/21 07/09/21 05:19 07:36 11:16 WBC MCV MCH MCHC RDW Lymph % (Auto) [place] % (Auto) Eos % (Auto) Lymph # (Auto) [place] # (Auto) Eos # (Auto) Baso # (Auto) Seg Neutrophils % Seg Neuts % (Manual) Lymphocytes % (Manual) Seg Neutrophils # Seg Neutrophils # Man Lymphocytes # (Manual) D-Dimer ABG pH POC ABG pCO2 POC ABG pO2 ABG pO2 ABG HCO3 ABG O2 Saturation ABG Base Excess ABG Oxyhemoglobin ABG Sodium ABG Chloride ABG Glucose Oxyhemoglobin Carboxyhemoglobin Sodium Potassium Chloride Carbon Dioxide BUN Creatinine Glucose POC Glucose 135 H 148 H 212 H Hemoglobin A1c Magnesium Ferritin AST ALT Alkaline Phosphatase Lactate Dehydrogenase C-Reactive Protein Total Protein Albumin Arterial Blood Glucose Coronavirus (PCR) 07/09/21 07/09/21 07/10/21 15:21 21:12 05:40 WBC MCV MCH MCHC RDW Lymph % (Auto) [place] % (Auto) Eos % (Auto) Lymph # (Auto) [place] # (Auto) Eos # (Auto) Baso # (Auto) Seg Neutrophils % Seg Neuts % (Manual) Lymphocytes % (Manual) Seg Neutrophils # Seg Neutrophils # Man Lymphocytes # (Manual) D-Dimer ABG pH POC ABG pCO2 POC ABG pO2 ABG pO2 ABG HCO3 ABG O2 Saturation ABG Base Excess ABG Oxyhemoglobin ABG Sodium ABG Chloride ABG Glucose Oxyhemoglobin Carboxyhemoglobin Sodium Potassium 3.3 L Chloride 95.1 L Carbon Dioxide 39 H BUN Creatinine 0.2 L Glucose 122 H POC Glucose 128 H 196 H Hemoglobin A1c Magnesium Ferritin AST ALT Alkaline Phosphatase Lactate Dehydrogenase C-Reactive Protein Total Protein Albumin Arterial Blood Glucose Coronavirus (PCR) 07/10/21 07/10/21 07/10/21 07:38 11:15 16:29 WBC MCV MCH MCHC RDW Lymph % (Auto) [place] % (Auto) Eos % (Auto) Lymph # (Auto) [place] # (Auto) Eos # (Auto) Baso # (Auto) Seg Neutrophils % Seg Neuts % (Manual) Lymphocytes % (Manual) Seg Neutrophils # Seg Neutrophils # Man Lymphocytes # (Manual) D-Dimer ABG pH POC ABG pCO2 POC ABG pO2 ABG pO2 ABG HCO3 ABG O2 Saturation ABG Base Excess ABG Oxyhemoglobin ABG Sodium ABG Chloride ABG Glucose Oxyhemoglobin Carboxyhemoglobin Sodium Potassium Chloride Carbon Dioxide BUN Creatinine Glucose POC Glucose 128 H 175 H 174 H Hemoglobin A1c Magnesium Ferritin AST ALT Alkaline Phosphatase Lactate Dehydrogenase C-Reactive Protein Total Protein Albumin Arterial Blood Glucose Coronavirus (PCR) 07/10/21 07/11/21 07/11/21 20:49 05:50 12:08 WBC MCV MCH MCHC RDW Lymph % (Auto) [place] % (Auto) Eos % (Auto) Lymph # (Auto) [place] # (Auto) Eos # (Auto) Baso # (Auto) Seg Neutrophils % Seg Neuts % (Manual) Lymphocytes % (Manual) Seg Neutrophils # Seg Neutrophils # Man Lymphocytes # (Manual) D-Dimer ABG pH POC ABG pCO2 POC ABG pO2 ABG pO2 ABG HCO3 ABG O2 Saturation ABG Base Excess ABG Oxyhemoglobin ABG Sodium ABG Chloride ABG Glucose Oxyhemoglobin Carboxyhemoglobin Sodium Potassium Chloride 97.3 L Carbon Dioxide 34 H BUN Creatinine 0.2 L Glucose 109 H POC Glucose 142 H 220 H Hemoglobin A1c Magnesium Ferritin AST ALT Alkaline Phosphatase Lactate Dehydrogenase C-Reactive Protein Total Protein Albumin Arterial Blood Glucose Coronavirus (PCR) 07/11/21 07/11/21 07/12/21 17:09 21:55 07:36 WBC MCV MCH MCHC RDW Lymph % (Auto) [place] % (Auto) Eos % (Auto) Lymph # (Auto) [place] # (Auto) Eos # (Auto) Baso # (Auto) Seg Neutrophils % Seg Neuts % (Manual) Lymphocytes % (Manual) Seg Neutrophils # Seg Neutrophils # Man Lymphocytes # (Manual) D-Dimer ABG pH POC ABG pCO2 POC ABG pO2 ABG pO2 ABG HCO3 ABG O2 Saturation ABG Base Excess ABG Oxyhemoglobin ABG Sodium ABG Chloride ABG Glucose Oxyhemoglobin Carboxyhemoglobin Sodium Potassium Chloride Carbon Dioxide BUN Creatinine Glucose POC Glucose 219 H 124 H 114 H Hemoglobin A1c Magnesium Ferritin AST ALT Alkaline Phosphatase Lactate Dehydrogenase C-Reactive Protein Total Protein Albumin Arterial Blood Glucose Coronavirus (PCR) 07/12/21 07/12/21 07/12/21 11:08 15:43 22:20 WBC MCV MCH MCHC RDW Lymph % (Auto) [place] % (Auto) Eos % (Auto) Lymph # (Auto) [place] # (Auto) Eos # (Auto) Baso # (Auto) Seg Neutrophils % Seg Neuts % (Manual) Lymphocytes % (Manual) Seg Neutrophils # Seg Neutrophils # Man Lymphocytes # (Manual) D-Dimer ABG pH POC ABG pCO2 POC ABG pO2 ABG pO2 ABG HCO3 ABG O2 Saturation ABG Base Excess ABG Oxyhemoglobin ABG Sodium ABG Chloride ABG Glucose Oxyhemoglobin Carboxyhemoglobin Sodium Potassium Chloride Carbon Dioxide BUN Creatinine Glucose POC Glucose 195 H 276 H 189 H Hemoglobin A1c Magnesium Ferritin AST ALT Alkaline Phosphatase Lactate Dehydrogenase C-Reactive Protein Total Protein Albumin Arterial Blood Glucose Coronavirus (PCR) 07/13/21 07/13/21 07/13/21 08:01 08:08 10:17 WBC MCV MCH MCHC RDW Lymph % (Auto) [place] % (Auto) Eos % (Auto) Lymph # (Auto) [place] # (Auto) Eos # (Auto) Baso # (Auto) Seg Neutrophils % Seg Neuts % (Manual) Lymphocytes % (Manual) Seg Neutrophils # Seg Neutrophils # Man Lymphocytes # (Manual) D-Dimer ABG pH POC ABG pCO2 POC ABG pO2 ABG pO2 ABG HCO3 ABG O2 Saturation ABG Base Excess ABG Oxyhemoglobin ABG Sodium ABG Chloride ABG Glucose Oxyhemoglobin Carboxyhemoglobin Sodium Potassium Chloride 94.4 L Carbon Dioxide 34 H BUN Creatinine 0.3 L Glucose 149 H POC Glucose 132 H 265 H Hemoglobin A1c Magnesium Ferritin AST ALT Alkaline Phosphatase Lactate Dehydrogenase C-Reactive Protein Total Protein Albumin Arterial Blood Glucose Coronavirus (PCR) 07/13/21 07/13/21 07/14/21 17:58 21:41 07:34 WBC MCV MCH MCHC RDW Lymph % (Auto) [place] % (Auto) Eos % (Auto) Lymph # (Auto) [place] # (Auto) Eos # (Auto) Baso # (Auto) Seg Neutrophils % Seg Neuts % (Manual) Lymphocytes % (Manual) Seg Neutrophils # Seg Neutrophils # Man Lymphocytes # (Manual) D-Dimer ABG pH POC ABG pCO2 POC ABG pO2 ABG pO2 ABG HCO3 ABG O2 Saturation ABG Base Excess ABG Oxyhemoglobin ABG Sodium ABG Chloride ABG Glucose Oxyhemoglobin Carboxyhemoglobin Sodium Potassium Chloride Carbon Dioxide BUN Creatinine Glucose POC Glucose 217 H 223 H 116 H Hemoglobin A1c Magnesium Ferritin AST ALT Alkaline Phosphatase Lactate Dehydrogenase C-Reactive Protein Total Protein Albumin Arterial Blood Glucose Coronavirus (PCR) 07/14/21 07/14/21 07/14/21 10:50 17:33 20:51 WBC MCV MCH MCHC RDW Lymph % (Auto) [place] % (Auto) Eos % (Auto) Lymph # (Auto) [place] # (Auto) Eos # (Auto) Baso # (Auto) Seg Neutrophils % Seg Neuts % (Manual) Lymphocytes % (Manual) Seg Neutrophils # Seg Neutrophils # Man Lymphocytes # (Manual) D-Dimer ABG pH POC ABG pCO2 POC ABG pO2 ABG pO2 ABG HCO3 ABG O2 Saturation ABG Base Excess ABG Oxyhemoglobin ABG Sodium ABG Chloride ABG Glucose Oxyhemoglobin Carboxyhemoglobin Sodium Potassium Chloride Carbon Dioxide BUN Creatinine Glucose POC Glucose 191 H 173 H 132 H Hemoglobin A1c Magnesium Ferritin AST ALT Alkaline Phosphatase Lactate Dehydrogenase C-Reactive Protein Total Protein Albumin Arterial Blood Glucose Coronavirus (PCR) 07/15/21 07/15/21 07/15/21 04:00 07:59 12:31 WBC MCV MCH MCHC RDW Lymph % (Auto) [place] % (Auto) Eos % (Auto) Lymph # (Auto) [place] # (Auto) Eos # (Auto) Baso # (Auto) Seg Neutrophils % Seg Neuts % (Manual) Lymphocytes % (Manual) Seg Neutrophils # Seg Neutrophils # Man Lymphocytes # (Manual) D-Dimer ABG pH POC ABG pCO2 POC ABG pO2 ABG pO2 ABG HCO3 ABG O2 Saturation ABG Base Excess ABG Oxyhemoglobin ABG Sodium ABG Chloride ABG Glucose Oxyhemoglobin Carboxyhemoglobin Sodium Potassium Chloride 96.0 L Carbon Dioxide 32 H BUN Creatinine 0.3 L Glucose 208 H POC Glucose 117 H 195 H Hemoglobin A1c Magnesium Ferritin AST ALT Alkaline Phosphatase Lactate Dehydrogenase C-Reactive Protein Total Protein Albumin Arterial Blood Glucose Coronavirus (PCR) 07/15/21 07/15/21 07/16/21 18:00 20:57 04:40 WBC MCV MCH MCHC RDW 17.1 H Lymph % (Auto) [place] % (Auto) Eos % (Auto) Lymph # (Auto) [place] # (Auto) Eos # (Auto) Baso # (Auto) Seg Neutrophils % Seg Neuts % (Manual) Lymphocytes % (Manual) Seg Neutrophils # Seg Neutrophils # Man Lymphocytes # (Manual) D-Dimer ABG pH POC ABG pCO2 POC ABG pO2 ABG pO2 ABG HCO3 ABG O2 Saturation ABG Base Excess ABG Oxyhemoglobin ABG Sodium ABG Chloride ABG Glucose Oxyhemoglobin Carboxyhemoglobin Sodium Potassium Chloride Carbon Dioxide BUN Creatinine Glucose POC Glucose 217 H 111 H Hemoglobin A1c Magnesium Ferritin AST ALT Alkaline Phosphatase Lactate Dehydrogenase C-Reactive Protein Total Protein Albumin Arterial Blood Glucose Coronavirus (PCR) 07/16/21 07/16/21 07/16/21 04:40 07:08 11:11 WBC MCV MCH MCHC RDW Lymph % (Auto) [place] % (Auto) Eos % (Auto) Lymph # (Auto) [place] # (Auto) Eos # (Auto) Baso # (Auto) Seg Neutrophils % Seg Neuts % (Manual) Lymphocytes % (Manual) Seg Neutrophils # Seg Neutrophils # Man Lymphocytes # (Manual) D-Dimer ABG pH POC ABG pCO2 POC ABG pO2 ABG pO2 ABG HCO3 ABG O2 Saturation ABG Base Excess ABG Oxyhemoglobin ABG Sodium ABG Chloride ABG Glucose Oxyhemoglobin Carboxyhemoglobin Sodium Potassium 3.4 L Chloride 94.6 L Carbon Dioxide 36 H BUN Creatinine < 0.2 L Glucose 101 H POC Glucose 118 H 184 H Hemoglobin A1c Magnesium Ferritin AST ALT Alkaline Phosphatase Lactate Dehydrogenase C-Reactive Protein Total Protein Albumin Arterial Blood Glucose Coronavirus (PCR) 07/16/21 07/16/21 07/17/21 17:29 22:01 08:10 WBC MCV MCH MCHC RDW Lymph % (Auto) [place] % (Auto) Eos % (Auto) Lymph # (Auto) [place] # (Auto) Eos # (Auto) Baso # (Auto) Seg Neutrophils % Seg Neuts % (Manual) Lymphocytes % (Manual) Seg Neutrophils # Seg Neutrophils # Man Lymphocytes # (Manual) D-Dimer ABG pH POC ABG pCO2 POC ABG pO2 ABG pO2 ABG HCO3 ABG O2 Saturation ABG Base Excess ABG Oxyhemoglobin ABG Sodium ABG Chloride ABG Glucose Oxyhemoglobin Carboxyhemoglobin Sodium Potassium Chloride Carbon Dioxide BUN Creatinine Glucose POC Glucose 200 H 147 H 118 H Hemoglobin A1c Magnesium Ferritin AST ALT Alkaline Phosphatase Lactate Dehydrogenase C-Reactive Protein Total Protein Albumin Arterial Blood Glucose Coronavirus (PCR) 07/17/21 07/17/21 07/17/21 11:38 16:24 21:13 WBC MCV MCH MCHC RDW Lymph % (Auto) [place] % (Auto) Eos % (Auto) Lymph # (Auto) [place] # (Auto) Eos # (Auto) Baso # (Auto) Seg Neutrophils % Seg Neuts % (Manual) Lymphocytes % (Manual) Seg Neutrophils # Seg Neutrophils # Man Lymphocytes # (Manual) D-Dimer ABG pH POC ABG pCO2 POC ABG pO2 ABG pO2 ABG HCO3 ABG O2 Saturation ABG Base Excess ABG Oxyhemoglobin ABG Sodium ABG Chloride ABG Glucose Oxyhemoglobin Carboxyhemoglobin Sodium Potassium Chloride Carbon Dioxide BUN Creatinine Glucose POC Glucose 151 H 268 H 115 H Hemoglobin A1c Magnesium Ferritin AST ALT Alkaline Phosphatase Lactate Dehydrogenase C-Reactive Protein Total Protein Albumin Arterial Blood Glucose Coronavirus (PCR) 07/18/21 07/18/21 07/18/21 07:58 12:29 20:24 WBC MCV MCH MCHC RDW Lymph % (Auto) [place] % (Auto) Eos % (Auto) Lymph # (Auto) [place] # (Auto) Eos # (Auto) Baso # (Auto) Seg Neutrophils % Seg Neuts % (Manual) Lymphocytes % (Manual) Seg Neutrophils # Seg Neutrophils # Man Lymphocytes # (Manual) D-Dimer ABG pH POC ABG pCO2 POC ABG pO2 ABG pO2 ABG HCO3 ABG O2 Saturation ABG Base Excess ABG Oxyhemoglobin ABG Sodium ABG Chloride ABG Glucose Oxyhemoglobin Carboxyhemoglobin Sodium Potassium Chloride Carbon Dioxide BUN Creatinine Glucose POC Glucose 135 H 139 H 130 H Hemoglobin A1c Magnesium Ferritin AST ALT Alkaline Phosphatase Lactate Dehydrogenase C-Reactive Protein Total Protein Albumin Arterial Blood Glucose Coronavirus (PCR) 07/19/21 07/19/21 07/19/21 06:55 06:55 07:54 WBC 14.5 H MCV MCH MCHC RDW 17.3 H Lymph % (Auto) 9.6 L [place] % (Auto) Eos % (Auto) Lymph # (Auto) [place] # (Auto) Eos # (Auto) 0.6 H Baso # (Auto) Seg Neutrophils % 80.3 H Seg Neuts % (Manual) Lymphocytes % (Manual) Seg Neutrophils # 11.7 H Seg Neutrophils # Man Lymphocytes # (Manual) D-Dimer ABG pH POC ABG pCO2 67.9 H POC ABG pO2 131.0 H ABG pO2 ABG HCO3 ABG O2 Saturation ABG Base Excess ABG Oxyhemoglobin ABG Sodium ABG Chloride 97.0 L ABG Glucose 133 H Oxyhemoglobin Carboxyhemoglobin Sodium Potassium Chloride 95.3 L Carbon Dioxide 35 H BUN Creatinine < 0.2 L Glucose 138 H POC Glucose Hemoglobin A1c Magnesium Ferritin AST ALT Alkaline Phosphatase Lactate Dehydrogenase C-Reactive Protein Total Protein Albumin Arterial Blood Glucose 133 H Coronavirus (PCR) 07/19/21 07/19/21 07/19/21 08:10 11:43 17:04 WBC MCV MCH MCHC RDW Lymph % (Auto) [place] % (Auto) Eos % (Auto) Lymph # (Auto) [place] # (Auto) Eos # (Auto) Baso # (Auto) Seg Neutrophils % Seg Neuts % (Manual) Lymphocytes % (Manual) Seg Neutrophils # Seg Neutrophils # Man Lymphocytes # (Manual) D-Dimer ABG pH POC ABG pCO2 POC ABG pO2 ABG pO2 ABG HCO3 ABG O2 Saturation ABG Base Excess ABG Oxyhemoglobin ABG Sodium ABG Chloride ABG Glucose Oxyhemoglobin Carboxyhemoglobin Sodium Potassium Chloride Carbon Dioxide BUN Creatinine Glucose POC Glucose 129 H 126 H 108 H Hemoglobin A1c Magnesium Ferritin AST ALT Alkaline Phosphatase Lactate Dehydrogenase C-Reactive Protein Total Protein Albumin Arterial Blood Glucose Coronavirus (PCR) 07/19/21 07/20/21 07/20/21 21:10 04:00 04:00 WBC MCV MCH MCHC RDW 17.0 H Lymph % (Auto) [place] % (Auto) 8.9 H Eos % (Auto) 6.3 H Lymph # (Auto) [place] # (Auto) 0.9 H Eos # (Auto) 0.6 H Baso # (Auto) Seg Neutrophils % 70.2 H Seg Neuts % (Manual) Lymphocytes % (Manual) Seg Neutrophils # Seg Neutrophils # Man Lymphocytes # (Manual) D-Dimer ABG pH POC ABG pCO2 POC ABG pO2 ABG pO2 ABG HCO3 ABG O2 Saturation ABG Base Excess ABG Oxyhemoglobin ABG Sodium ABG Chloride ABG Glucose Oxyhemoglobin Carboxyhemoglobin Sodium Potassium Chloride 96.7 L Carbon Dioxide 36 H BUN Creatinine 0.2 L Glucose 102 H POC Glucose 109 H Hemoglobin A1c Magnesium Ferritin AST ALT Alkaline Phosphatase Lactate Dehydrogenase C-Reactive Protein Total Protein Albumin 3.2 L Arterial Blood Glucose Coronavirus (PCR) 07/20/21 07/20/21 07/20/21 11:15 15:34 17:01 WBC MCV MCH MCHC RDW Lymph % (Auto) [place] % (Auto) Eos % (Auto) Lymph # (Auto) [place] # (Auto) Eos # (Auto) Baso # (Auto) Seg Neutrophils % Seg Neuts % (Manual) Lymphocytes % (Manual) Seg Neutrophils # Seg Neutrophils # Man Lymphocytes # (Manual) D-Dimer ABG pH POC ABG pCO2 POC ABG pO2 ABG pO2 ABG HCO3 ABG O2 Saturation ABG Base Excess ABG Oxyhemoglobin ABG Sodium ABG Chloride ABG Glucose Oxyhemoglobin Carboxyhemoglobin Sodium Potassium Chloride Carbon Dioxide BUN Creatinine Glucose POC Glucose 109 H 152 H 125 H Hemoglobin A1c Magnesium Ferritin AST ALT Alkaline Phosphatase Lactate Dehydrogenase C-Reactive Protein Total Protein Albumin Arterial Blood Glucose Coronavirus (PCR) 07/20/21 07/21/21 07/21/21 21:00 04:48 04:48 WBC 12.8 H MCV MCH MCHC RDW 16.8 H Lymph % (Auto) 9.3 L [place] % (Auto) Eos % (Auto) Lymph # (Auto) [place] # (Auto) 0.9 H Eos # (Auto) Baso # (Auto) Seg Neutrophils % 81.1 H Seg Neuts % (Manual) Lymphocytes % (Manual) Seg Neutrophils # 10.4 H Seg Neutrophils # Man Lymphocytes # (Manual) D-Dimer ABG pH POC ABG pCO2 POC ABG pO2 ABG pO2 ABG HCO3 ABG O2 Saturation ABG Base Excess ABG Oxyhemoglobin ABG Sodium ABG Chloride ABG Glucose Oxyhemoglobin Carboxyhemoglobin Sodium Potassium Chloride 95.4 L Carbon Dioxide 33 H BUN 6 L Creatinine < 0.2 L Glucose 155 H POC Glucose 211 H Hemoglobin A1c Magnesium 1.60 L Ferritin AST ALT Alkaline Phosphatase Lactate Dehydrogenase C-Reactive Protein Total Protein Albumin Arterial Blood Glucose Coronavirus (PCR) 07/21/21 07/21/21 07/21/21 07:52 11:05 17:01 WBC MCV MCH MCHC RDW Lymph % (Auto) [place] % (Auto) Eos % (Auto) Lymph # (Auto) [place] # (Auto) Eos # (Auto) Baso # (Auto) Seg Neutrophils % Seg Neuts % (Manual) Lymphocytes % (Manual) Seg Neutrophils # Seg Neutrophils # Man Lymphocytes # (Manual) D-Dimer ABG pH POC ABG pCO2 POC ABG pO2 ABG pO2 ABG HCO3 ABG O2 Saturation ABG Base Excess ABG Oxyhemoglobin ABG Sodium ABG Chloride ABG Glucose Oxyhemoglobin Carboxyhemoglobin Sodium Potassium Chloride Carbon Dioxide BUN Creatinine Glucose POC Glucose 116 H 207 H 133 H Hemoglobin A1c Magnesium Ferritin AST ALT Alkaline Phosphatase Lactate Dehydrogenase C-Reactive Protein Total Protein Albumin Arterial Blood Glucose Coronavirus (PCR) 07/21/21 07/22/21 07/22/21 21:17 07:55 07:55 WBC MCV MCH MCHC RDW 16.5 H Lymph % (Auto) [place] % (Auto) 8.6 H Eos % (Auto) Lymph # (Auto) [place] # (Auto) Eos # (Auto) Baso # (Auto) Seg Neutrophils % 72.3 H Seg Neuts % (Manual) Lymphocytes % (Manual) Seg Neutrophils # Seg Neutrophils # Man Lymphocytes # (Manual) D-Dimer ABG pH POC ABG pCO2 POC ABG pO2 ABG pO2 ABG HCO3 ABG O2 Saturation ABG Base Excess ABG Oxyhemoglobin ABG Sodium ABG Chloride ABG Glucose Oxyhemoglobin Carboxyhemoglobin Sodium Potassium Chloride 94.6 L Carbon Dioxide 42 H* D BUN 5 L Creatinine < 0.2 L Glucose POC Glucose 152 H Hemoglobin A1c Magnesium Ferritin AST ALT Alkaline Phosphatase Lactate Dehydrogenase C-Reactive Protein Total Protein Albumin Arterial Blood Glucose Coronavirus (PCR) 07/22/21 07/22/21 07/22/21 11:25 12:05 15:40 WBC MCV MCH MCHC RDW Lymph % (Auto) [place] % (Auto) Eos % (Auto) Lymph # (Auto) [place] # (Auto) Eos # (Auto) Baso # (Auto) Seg Neutrophils % Seg Neuts % (Manual) Lymphocytes % (Manual) Seg Neutrophils # Seg Neutrophils # Man Lymphocytes # (Manual) D-Dimer ABG pH 7.338 L POC ABG pCO2 POC ABG pO2 ABG pO2 66.1 L ABG HCO3 45.0 H ABG O2 Saturation 94.2 L ABG Base Excess 15.2 H ABG Oxyhemoglobin ABG Sodium ABG Chloride ABG Glucose Oxyhemoglobin 91.9 L Carboxyhemoglobin Sodium Potassium Chloride Carbon Dioxide BUN Creatinine Glucose POC Glucose 146 H 219 H Hemoglobin A1c Magnesium Ferritin AST ALT Alkaline Phosphatase Lactate Dehydrogenase C-Reactive Protein Total Protein Albumin Arterial Blood Glucose Coronavirus (PCR) 07/22/21 07/23/21 07/23/21 21:26 04:35 04:35 WBC MCV 98 H MCH MCHC RDW 16.2 H Lymph % (Auto) 7.9 L [place] % (Auto) Eos % (Auto) Lymph # (Auto) 0.9 L [place] # (Auto) Eos # (Auto) Baso # (Auto) Seg Neutrophils % 85.3 H Seg Neuts % (Manual) Lymphocytes % (Manual) Seg Neutrophils # 9.2 H Seg Neutrophils # Man Lymphocytes # (Manual) D-Dimer ABG pH POC ABG pCO2 POC ABG pO2 ABG pO2 ABG HCO3 ABG O2 Saturation ABG Base Excess ABG Oxyhemoglobin ABG Sodium ABG Chloride ABG Glucose Oxyhemoglobin Carboxyhemoglobin Sodium Potassium Chloride 93.9 L Carbon Dioxide 44 H* BUN Creatinine < 0.2 L Glucose 149 H POC Glucose 131 H Hemoglobin A1c Magnesium Ferritin AST ALT Alkaline Phosphatase Lactate Dehydrogenase C-Reactive Protein Total Protein Albumin Arterial Blood Glucose Coronavirus (PCR) 07/23/21 07/23/21 07/23/21 07:20 11:34 16:11 WBC MCV MCH MCHC RDW Lymph % (Auto) [place] % (Auto) Eos % (Auto) Lymph # (Auto) [place] # (Auto) Eos # (Auto) Baso # (Auto) Seg Neutrophils % Seg Neuts % (Manual) Lymphocytes % (Manual) Seg Neutrophils # Seg Neutrophils # Man Lymphocytes # (Manual) D-Dimer ABG pH POC ABG pCO2 POC ABG pO2 ABG pO2 ABG HCO3 ABG O2 Saturation ABG Base Excess ABG Oxyhemoglobin ABG Sodium ABG Chloride ABG Glucose Oxyhemoglobin Carboxyhemoglobin Sodium Potassium Chloride Carbon Dioxide BUN Creatinine Glucose POC Glucose 116 H 172 H 110 H Hemoglobin A1c Magnesium Ferritin AST ALT Alkaline Phosphatase Lactate Dehydrogenase C-Reactive Protein Total Protein Albumin Arterial Blood Glucose Coronavirus (PCR) 07/23/21 07/23/21 07/24/21 18:11 21:33 04:10 WBC MCV MCH MCHC RDW Lymph % (Auto) [place] % (Auto) Eos % (Auto) Lymph # (Auto) [place] # (Auto) Eos # (Auto) Baso # (Auto) Seg Neutrophils % Seg Neuts % (Manual) Lymphocytes % (Manual) Seg Neutrophils # Seg Neutrophils # Man Lymphocytes # (Manual) D-Dimer ABG pH POC ABG pCO2 78.3 H POC ABG pO2 80.7 L ABG pO2 ABG HCO3 ABG O2 Saturation ABG Base Excess ABG Oxyhemoglobin ABG Sodium 134.9 L ABG Chloride 89.0 L ABG Glucose 200 H Oxyhemoglobin Carboxyhemoglobin Sodium Potassium 3.5 L D Chloride 92.4 L Carbon Dioxide 42 H* BUN Creatinine < 0.2 L Glucose 123 H POC Glucose 108 H Hemoglobin A1c Magnesium Ferritin AST ALT Alkaline Phosphatase Lactate Dehydrogenase C-Reactive Protein Total Protein Albumin Arterial Blood Glucose 200 H Coronavirus (PCR) Chest x-ray: report reviewed (bilat opacification), image reviewed
[2021-07-24] MEDS: INSULIN LISPRO 100 UNIT/ML SUB-Q SCH ×4 (09:00→22:08)
[2021-07-24] MEDS ORDERED: FUROSEMIDE 20 MG/2 ML INJ IV ONE (10:00)
[2021-07-24] MEDS ORDERED: INSULIN GLARGINE 100 UNITS/ML SUB-Q SCH (10:00)
[2021-07-24] MEDS ORDERED: CALCIUM CARBONATE 500 MG TAB CHEW PO PRN (10:43)
[2021-07-24] MEDS: ZINC SULFATE 220 MG CAP PO SCH ×2 (10:59→22:09)
[2021-07-24] MEDS: ALPRAZolam 1 MG TAB PO SCH ×2 (10:59→22:09)
[2021-07-24] MEDS: CHOLECALCIFEROL (VIT D3) 1000 UNIT (25 mcg) TAB PO SCH (10:59)
[2021-07-24] MEDS: ENOXAPARIN 40 MG/0.4 ML INJ SUB-Q SCH (22:08)
[2021-07-24] MEDS: ACETAMINOPHEN 325 MG TAB PO PRN (22:14)
--- NOTE | 2021-07-25 08:39 | Progress Note ---
Assessment and Plan Assessment and plan: #Acute hypoxic/hypercapneic respiratory failure #Severe ARDS -Currently on high flow nasal cannula -BiPAP at night as tolerated -Low threshold for intubation as patient is persistently tachypneic and tachycardic -s/p prednisone taper -Pulmonology following, assistance appreciated -encouraged prone positioning; patient has been poorly tolerating it overnight -ABG showed CO2 of 78.3, P/F 81 indicating severe ARDS #Metabolic alkalosis -todays BMP pending -Patient received multiple doses of Lasix over course of hospital stay but may be 2/2 to compensation for hypercapneia #Heart failure with preserved ejection fraction -TTE: LVEF 55-60% with diastolic dysfunction -will continue to monitor for signs of fluid overload #COVID-19 infection -Continue Covid vitamins #Type 2 diabetes -continue Lantus 15 units daily and sliding scale insulin #Dysuria #Possible UTI -s/p levaquin #Anxiety -Stable -continue Xanax #DVT prophylaxis -Lovenox 40 daily #Deconditioning -Will benefit from SNF after prolonged hospital stay Resolved issues #Sepsis secondary to COVID-19 #Iatrogenic diarrhea #Hypomagnesemia #Hyponatremia #Protein calorie malnutrition Disposition Plan: continue medical management Total Time Spent with Patient (Minutes): 20 minutes History Interval history: No acute events overnight. On HFNC 40/95%. Tolerated BiPAP overnight. She reports still not feeling well. She has been feeling anxious and xanax helps. Hospitalist Physical - Physical exam Narrative exam: GENERAL: Well-developed well-nourished. Lying in bed in no acute distress. HEENT: High flow nasal cannula at 40L/95% CHEST/LUNGS: Coarse breath sounds bilaterally. HEART/CARDIOVASCULAR: Tachycardic. No murmur, rubs or gallops appreciated. ABDOMEN: +BS. NT/ND. PSYCH: Cooperative. - Constitutional Vitals: Temp Pulse Resp BP Pulse Ox 98.3 F 111 H 30 H 133/65 100 07/25/21 04:00 07/25/21 06:00 07/25/21 06:00 07/25/21 06:00 07/25/21 06:00 General appearance: Present: no acute distress, well-nourished, obese, other (Looks tired) Results - Labs CBC & Chem 7: 07/23/21 04:35 07/24/21 04:10 Labs: Laboratory Last Values WBC 10.8 K/mm3 (4.5-11.0) 07/23/21 04:35 RBC 3.84 M/mm3 (3.65-5.03) 07/23/21 04:35 Hgb 12.1 gm/dl (10.1-14.3) 07/23/21 04:35 Hct 37.6 % (30.3-42.9) 07/23/21 04:35 MCV 98 fl (79-97) H 07/23/21 04:35 MCH 32 pg (28-32) 07/23/21 04:35 MCHC 32 % (30-34) 07/23/21 04:35 RDW 16.2 % (13.2-15.2) H 07/23/21 04:35 Plt Count 367 K/mm3 (140-440) 07/23/21 04:35 Lymph % (Auto) 7.9 % (13.4-35.0) L 07/23/21 04:35 [place] % (Auto) 5.6 % (0.0-7.3) 07/23/21 04:35 Eos % (Auto) 0.8 % (0.0-4.3) 07/23/21 04:35 Baso % (Auto) 0.4 % (0.0-1.8) 07/23/21 04:35 Lymph # (Auto) 0.9 K/mm3 (1.2-5.4) L 07/23/21 04:35 [place] # (Auto) 0.6 K/mm3 (0.0-0.8) 07/23/21 04:35 Eos # (Auto) 0.1 K/mm3 (0.0-0.4) 07/23/21 04:35 Baso # (Auto) 0.0 K/mm3 (0.0-0.1) 07/23/21 04:35 Add Manual Diff Complete 07/09/21 04:45 Total Counted 100 07/09/21 04:45 Seg Neutrophils % 85.3 % (40.0-70.0) H 07/23/21 04:35 Seg Neuts % (Manual) 82.0 % (40.0-70.0) H 07/09/21 04:45 Band Neutrophils % 1.0 % 05/12/21 04:05 Lymphocytes % (Manual) 13.0 % (13.4-35.0) L 07/09/21 04:45 Monocytes % (Manual) 3.0 % (0.0-7.3) 07/09/21 04:45 Eosinophils % (Manual) 2.0 % (0.0-4.3) 07/09/21 04:45 Nucleated RBC % Not Reportable 07/09/21 04:45 Seg Neutrophils # 9.2 K/mm3 (1.8-7.7) H 07/23/21 04:35 Seg Neutrophils # Man 7.8 K/mm3 (1.8-7.7) H 07/09/21 04:45 Band Neutrophils # 0.0 K/mm3 07/09/21 04:45 Lymphocytes # (Manual) 1.2 K/mm3 (1.2-5.4) 07/09/21 04:45 Abs React Lymphs (Man) 0.0 K/mm3 07/09/21 04:45 Monocytes # (Manual) 0.3 K/mm3 (0.0-0.8) 07/09/21 04:45 Eosinophils # (Manual) 0.2 K/mm3 (0.0-0.4) 07/09/21 04:45 Basophils # (Manual) 0.0 K/mm3 (0.0-0.1) 07/09/21 04:45 Metamyelocytes # 0.0 K/mm3 07/09/21 04:45 Myelocytes # 0.0 K/mm3 07/09/21 04:45 Promyelocytes # 0.0 K/mm3 07/09/21 04:45 Blast Cells # 0.0 K/mm3 07/09/21 04:45 WBC Morphology Not Reportable 07/09/21 04:45 Hypersegmented Neuts Not Reportable 07/09/21 04:45 Hyposegmented Neuts Not Reportable 07/09/21 04:45 Hypogranular Neuts Not Reportable 07/09/21 04:45 Smudge Cells Not Reportable 07/09/21 04:45 Toxic Granulation Not Reportable 07/09/21 04:45 Toxic Vacuolation Not Reportable 07/09/21 04:45 Dohle Bodies Not Reportable 07/09/21 04:45 Pelger-Huet Anomaly Not Reportable 07/09/21 04:45 Janelle Rods Not Reportable 07/09/21 04:45 Platelet Estimate Consistent w auto 07/09/21 04:45 Clumped Platelets Not Reportable 07/09/21 04:45 Plt Clumps, EDTA Not Reportable 07/09/21 04:45 Large Platelets Not Reportable 07/09/21 04:45 Giant Platelets Rare 07/09/21 04:45 Platelet Satelliting Not Reportable 07/09/21 04:45 Plt Morphology Comment Not Reportable 07/09/21 04:45 RBC Morphology Not Reportable 07/09/21 04:45 Dimorphic RBCs Not Reportable 07/09/21 04:45 Polychromasia Not Reportable 07/09/21 04:45 Hypochromasia Few 07/09/21 04:45 Poikilocytosis Not Reportable 07/09/21 04:45 Anisocytosis Not Reportable 07/09/21 04:45 Microcytosis Not Reportable 07/09/21 04:45 Macrocytosis Not Reportable 07/09/21 04:45 Spherocytes Not Reportable 07/09/21 04:45 Pappenheimer Bodies Not Reportable 07/09/21 04:45 Sickle Cells Not Reportable 07/09/21 04:45 Target Cells Not Reportable 07/09/21 04:45 Tear Drop Cells Not Reportable 07/09/21 04:45 Ovalocytes Not Reportable 07/09/21 04:45 Stomatocytes 1+ 07/09/21 04:45 Helmet Cells Not Reportable 07/09/21 04:45 Ahuja-Tatamy Bodies Not Reportable 07/09/21 04:45 [place] Rings Not Reportable 07/09/21 04:45 [place] Cells Not Reportable 07/09/21 04:45 Bite Cells Not Reportable 07/09/21 04:45 Crenated Cell Not Reportable 07/09/21 04:45 Elliptocytes Not Reportable 07/09/21 04:45 Acanthocytes (Spur) Not Reportable 07/09/21 04:45 Rouleaux Not Reportable 07/09/21 04:45 Hemoglobin C Crystals Not Reportable 07/09/21 04:45 Schistocytes Not Reportable 07/09/21 04:45 Malaria parasites Not Reportable 07/09/21 04:45 Justin Bodies Not Reportable 07/09/21 04:45 Hem Pathologist Commnt No 07/09/21 04:45 D-Dimer 638.35 ng/mlDDU (0-234) H 07/09/21 04:45 ABG pH 7.417 (7.320-7.450) 07/23/21 18:11 POC ABG pCO2 78.3 mmHg (32.0-48.0) H 07/23/21 18:11 ABG pCO2 85.7 mm Hg 07/22/21 12:05 POC ABG pO2 80.7 mmHg (83-108) L 07/23/21 18:11 ABG pO2 66.1 mm Hg (80.0-90.0) L 07/22/21 12:05 POC ABG HCO3 49.3 07/23/21 18:11 ABG HCO3 45.0 mmol/L (20.0-26.0) H 07/22/21 12:05 ABG O2 Saturation 96.7 (0-100) 07/23/21 18:11 ABG O2 Content 16.8 (0.0-44) 07/22/21 12:05 POC ABG Base Excess 20.5 07/23/21 18:11 ABG Base Excess 15.2 mmol/L (-2.0-3.0) H 07/22/21 12:05 ABG Hemoglobin 12.6 (12.0-17.5) 07/23/21 18:11 ABG Oxyhemoglobin 95.7 (94-98) 07/23/21 18:11 ABG Carboxyhemoglobin 1.9 % (0.0-5.0) 07/22/21 12:05 ABG Methemoglobin 0.3 (0.0-1.5) 07/23/21 18:11 ABG Sodium 134.9 mmol/L (136.0-145.0) L 07/23/21 18:11 ABG Potassium 3.9 mmol/L (3.40-4.50) 07/23/21 18:11 ABG Chloride 89.0 mmol/L (98-107) L 07/23/21 18:11 ABG Glucose 200 mg/dL (65-95) H 07/23/21 18:11 Oxyhemoglobin 91.9 % (95.0-99.0) L 07/22/21 12:05 Carboxyhemoglobin 0.7 (0.5-1.5) 07/23/21 18:11 FiO2 100 % 07/22/21 12:05 FiO2 % 100.0 07/23/21 18:11 Sodium 141 mmol/L (137-145) 07/24/21 04:10 Potassium 3.5 mmol/L (3.6-5.0) L D 07/24/21 04:10 Chloride 92.4 mmol/L (98-107) L 07/24/21 04:10 Carbon Dioxide 42 mmol/L (22-30) H* 07/24/21 04:10 Anion Gap 10 mmol/L 07/24/21 04:10 BUN 11 mg/dL (7-17) 07/24/21 04:10 Creatinine < 0.2 mg/dL (0.6-1.2) L 07/24/21 04:10 Estimated GFR > 60 ml/min 07/24/21 04:10 BUN/Creatinine Ratio 55 % 07/24/21 04:10 Glucose 123 mg/dL (65-100) H 07/24/21 04:10 POC Glucose 120 mg/dL (70-105) H 07/25/21 07:40 Hemoglobin A1c 8.5 % (4-6) H 04/18/21 07:36 Calcium 9.3 mg/dL (8.4-10.2) 07/24/21 04:10 Phosphorus 3.70 mg/dL (2.5-4.5) 07/23/21 04:35 Magnesium 2.10 mg/dL (1.7-2.3) 07/23/21 04:35 Ferritin 155.9 ng/mL (10.0-200.0) 07/09/21 04:45 Total Bilirubin 0.20 mg/dL (0.1-1.2) 07/20/21 04:00 AST 18 units/L (5-40) 07/20/21 04:00 ALT 40 units/L (7-56) 07/20/21 04:00 Alkaline Phosphatase 70 units/L (35-129) 07/20/21 04:00 Lactate Dehydrogenase 475 units/L (91-180) H 06/05/21 05:26 C-Reactive Protein 4.30 mg/dL (0.00-1.30) H 07/09/21 04:45 NT-Pro-B Natriuret Pep 59.45 pg/mL (0-450) 07/07/21 13:40 Total Protein 7.1 g/dL (6.3-8.2) 07/20/21 04:00 Albumin 3.2 g/dL (3.9-5) L 07/20/21 04:00 Albumin/Globulin Ratio 0.8 % 07/20/21 04:00 Triglycerides < 9 mg/dL (2-149) 05/03/21 04:30 Procalcitonin < 0.05 ng/mL (<0.15) 05/23/21 09:50 Arterial Blood Glucose 200 mg/dL (65-95) H 07/23/21 18:11 Arterial Blood Ionized Calcium 4.6 mg/dL (4.6-5.3) 07/23/21 18:11 Coronavirus (PCR) Positive (Negative) A 06/05/21 08:30 Amos/IV: Voiding Method External Female Catheter Active Medications - Current Medications Current Medications: Generic Name Dose Route Start Last Admin Trade Name Freq PRN Reason Stop Dose Admin Acetaminophen 650 mg 07/02/21 17:48 07/24/21 22:14 Acetaminophen 325 Mg Tab PO 650 mg Q4H PRN Administration Pain, Mild (1-3) Albuterol 2.5 mg 04/16/21 13:39 04/21/21 20:39 Albuterol 2.5 Mg/3 Ml Nebu IH 2.5 mg Q4HRT PRN Administration Shortness Of Breath Alprazolam 2 mg 07/04/21 12:00 07/24/21 22:09 Alprazolam 1 Mg Tab PO 2 mg BID TUTU Administration Calcium Carbonate/Glycine 500 mg 07/24/21 10:43 Calcium Carbonate 500 Mg Tab Chew PO BID PRN reflux Cholecalciferol 1,000 unit 04/17/21 10:00 07/24/21 10:59 Cholecalciferol (Vit D3) 1000 Unit (25 Mcg) Tab PO 1,000 unit QDAY TUTU Administration Enoxaparin Sodium 40 mg 05/19/21 22:00 07/24/21 22:08 Enoxaparin 40 Mg/0.4 Ml Inj SUB-Q 40 mg QDAY@2200 [facility] Administration Protocol Ibuprofen 600 mg 07/11/21 11:00 07/22/21 11:38 Ibuprofen 600 Mg Tab PO 600 mg Q6H PRN Administration Ear Pain Insulin Glargine 5 units 07/25/21 10:00 Insulin Glargine 100 Units/Ml SUB-Q DAILY [facility] Insulin Human Lispro 0 unit 05/18/21 12:00 07/24/21 22:08 Insulin Lispro 100 Unit/Ml SUB-Q Not Given ACHS [facility] Protocol Ondansetron HCl 4 mg 04/16/21 14:00 05/30/21 10:07 Ondansetron 4 Mg/2 Ml Inj IV 4 mg Q8H PRN Administration Nausea And Vomiting Polyethylene Glycol 17 gm 07/16/21 20:00 Polyethylene Glycol 3350 17 Gm Powder PO QDAY PRN Constipation Sodium Chloride 10 ml 04/16/21 13:39 07/24/21 10:59 Sodium Chloride 0.9% 10 Ml Flush Syringe IV 10 ml PRN PRN Administration LINE FLUSH Zinc Sulfate 220 mg 04/16/21 22:00 07/24/21 22:09 Zinc Sulfate 220 Mg Cap PO 220 mg BID TUTU Administration Zolpidem Tartrate 10 mg 05/26/21 08:56 07/20/21 21:08 Zolpidem 5 Mg Tab PO 10 mg QHS PRN Administration Insomnia Nutrition/Malnutrition Assess - Dietary Evaluation Nutrition/Malnutrition Findings: Nutrition Notes Start: 04/23/21 07:41 Freq: Status: Active Protocol: Document 07/03/21 16:54 GB (Rec: 07/03/21 17:11 GB [email or web address]) Nutrition Notes Initial or Follow up Reassessment Current Diagnosis Respiratory Failure Other Pertinent Diagnosis oral thrush, COVID-19 pneu Current Diet consistent carbohydrate Labs/Tests 07/03: creatinine 0.3, K 3.2 Pertinent Medications Vit C, Vit D3, D5 (PRN), Prednisone, NaCl, Zn Sulfate Height 4 ft 11.84 in Weight 60.3 kg [place] Body Weight (kg) 45.09 BMI 26.1 Weight change and time frame 04/16/21: 74.843kg 05/17/21: 68.1kg 06/16/21: 60.3kg change of -14.54kg for -19.43% in 60 days. Per MD note: pt has been diuresed thorughout stay. Weight Status Overweight Subjective/Other Information MD notes 07/03: pt showing improvement, prednisone weaning down, possible weaning of O2. Last BM: 07/02 PO intake recorded at 50-100% Percent of energy/protein needs met: PO intake of meals meet 75% or greater of EEN Burn Absent Trauma Absent GI Symptoms None Food Allergy No Skin Integrity/Comment skin tear rt/lt buttocks Current % PO Good (75-100%) Minimum of two criteria No #3 Nutrition Diagnosis No nutrition diagnosis at this time Etiology respiratory failure As Evidenced by Signs and Symptoms recovering, good po, weight loss r/t diurese therapy #2 Nutrition Diagnosis Malnutrition Comments: Wt loss due to diurese for most of stay. PO intake is recorded at 75- 100% Etiology acute illness As Evidenced by Signs and Symptoms <50% EER in >5 days, >5% wt loss in 1 month Diagnosis Progress(for reassessment Resolved documentation) #1 Nutrition Diagnosis Inadequate oral intake Etiology ARF As Evidenced by Signs and Symptoms pt continues to meet 100%/93% of kcal/protein needs Diagnosis Progress(for reassessment Resolved documentation) Is patient on ventilator? No Is Patient Ambulatory and/or Out of Bed Yes REE-(Tucker-St. Jeor-ambulatory/OOB) [ 1491.022 [id number]] Kcal/Kg value to use for calculation 25 Approximate Energy Requirements Using 1508 kcal/Kg Calculation Used for Recommendations Kcal/kg Additional Notes Pro needs 1-1.2g/kg @ 60k -72g/day Fluid needs 1ml/kcal or per MD Nutrition Intervention Change Diet Order: continue Nutrition Support: n/a Add Supplement/Snack (indicate name/kcal n/a /protein ) Goal #1 PO intake of meals to be 75% or greater daily for LOS Goal #2 Weight to stabilize +/-3% current weight for LOS Follow-Up By: 08/07/21 Additional Comments f/u: po intake, weight
[2021-07-25] MEDS: ALPRAZolam 1 MG TAB PO SCH ×2 (10:48→21:00)
[2021-07-25] MEDS: ZINC SULFATE 220 MG CAP PO SCH ×2 (10:48→21:55)
[2021-07-25] MEDS: CHOLECALCIFEROL (VIT D3) 1000 UNIT (25 mcg) TAB PO SCH (10:48)
[2021-07-25] MEDS: INSULIN LISPRO 100 UNIT/ML SUB-Q SCH ×2 (10:49→22:32)
[2021-07-25] MEDS: INSULIN GLARGINE 100 UNITS/ML SUB-Q SCH (10:49)
[2021-07-25 12:14] LABS: Blood Urea Nitrogen 13 mg/dL (7-17); Calcium 9.4 mg/dL (8.4-10.2); Hemolysis Index 10
[2021-07-25 12:23] LABS: BUN/Creatinine Ratio 65
--- NOTE | 2021-07-25 17:11 | Progress Note ---
Assessment and Plan Imp: 1. Covid-19 2. Viral pneumonia 3. Acute respiratory failure, hypoxia Rec: 1. S/p Remdesivir, Actemra 2. Off steroids 3. SubQ Lovenox 4. Proning 5. Wean HFNC to keep sats 88% or > 6. Guarded prognosis Subjective Date of service: 07/25/21 Principal diagnosis: Covid-19 Interval history: No events. On 40LPM and 90% FiO2 with stable SOB and no new complaints. Objective Vital Signs - 12hr 07/25/21 07/25/21 07/25/21 06:00 08:00 08:50 Temperature 98.1 F Pulse Rate 111 H 100 H Pulse Rate [ 110 H From Monitor] Respiratory 30 H 30 H Rate Blood Pressure 133/65 O2 Sat by Pulse 100 100 97 Oximetry 07/25/21 07/25/21 07/25/21 11:10 12:00 12:01 Temperature Pulse Rate 113 H 102 H 116 H Pulse Rate [ 100 H From Monitor] Respiratory 34 H 30 H 36 H Rate Blood Pressure O2 Sat by Pulse 97 100 97 Oximetry 07/25/21 07/25/21 07/25/21 13:01 14:01 15:01 Temperature Pulse Rate 115 H 116 H 113 H Pulse Rate [ From Monitor] Respiratory 35 H 37 H 33 H Rate Blood Pressure O2 Sat by Pulse 99 98 99 Oximetry 07/25/21 07/25/21 07/25/21 15:34 16:00 16:01 Temperature Pulse Rate 100 H 116 H Pulse Rate [ 100 H From Monitor] Respiratory 32 H 39 H Rate Blood Pressure O2 Sat by Pulse 8 L 100 91 Oximetry Constitutional: no acute distress, alert, other (on bipap) Eyes: non-icteric ENT: oropharynx moist Neck: supple Effort: normal Ascultation: Bilateral: diminished breath sounds Cardiovascular: regular rate and rhythm Gastrointestinal: normoactive bowel sounds, soft, non-tender, non-distended Integumentary: normal Extremities: no cyanosis, no edema, pink and warm Neurologic: non-focal exam, pupils equal and round Psychiatric: mood appropriate, affect normal CBC and BMP: 07/23/21 04:35 07/26/21 09:56 ABG, PT/INR, D-dimer: ABG ABG pH 7.417 (7.320-7.450) 07/23/21 18:11 POC ABG pCO2 78.3 mmHg (32.0-48.0) H 07/23/21 18:11 ABG pCO2 85.7 mm Hg 07/22/21 12:05 POC ABG pO2 80.7 mmHg (83-108) L 07/23/21 18:11 ABG pO2 66.1 mm Hg (80.0-90.0) L 07/22/21 12:05 POC ABG HCO3 49.3 07/23/21 18:11 ABG O2 Saturation 96.7 (0-100) 07/23/21 18:11 PT/INR, D-dimer D-Dimer 638.35 ng/mlDDU (0-234) H 07/09/21 04:45 Abnormal lab findings: Abnormal Labs 04/16/21 04/16/21 04/16/21 11:42 11:42 11:42 WBC MCV MCH MCHC RDW 16.1 H Lymph % (Auto) 7.8 L [place] % (Auto) Eos % (Auto) Lymph # (Auto) 0.8 L [place] # (Auto) Eos # (Auto) Baso # (Auto) Seg Neutrophils % 87.7 H Seg Neuts % (Manual) Lymphocytes % (Manual) Seg Neutrophils # 8.5 H Seg Neutrophils # Man Lymphocytes # (Manual) D-Dimer 338.70 H ABG pH POC ABG pCO2 POC ABG pO2 ABG pO2 ABG HCO3 ABG O2 Saturation ABG Base Excess ABG Oxyhemoglobin ABG Sodium ABG Chloride ABG Glucose Oxyhemoglobin Carboxyhemoglobin Sodium Potassium Chloride Carbon Dioxide BUN Creatinine Glucose 194 H POC Glucose Hemoglobin A1c Magnesium Ferritin AST ALT Alkaline Phosphatase Lactate Dehydrogenase C-Reactive Protein Total Protein 8.4 H Albumin 3.8 L Arterial Blood Glucose Coronavirus (PCR) 04/16/21 04/16/21 04/17/21 11:42 11:42 03:50 WBC MCV MCH MCHC RDW 16.0 H Lymph % (Auto) 7.7 L [place] % (Auto) Eos % (Auto) Lymph # (Auto) 0.6 L [place] # (Auto) Eos # (Auto) Baso # (Auto) Seg Neutrophils % 89.8 H Seg Neuts % (Manual) Lymphocytes % (Manual) Seg Neutrophils # Seg Neutrophils # Man Lymphocytes # (Manual) D-Dimer ABG pH POC ABG pCO2 POC ABG pO2 ABG pO2 ABG HCO3 ABG O2 Saturation ABG Base Excess ABG Oxyhemoglobin ABG Sodium ABG Chloride ABG Glucose Oxyhemoglobin Carboxyhemoglobin Sodium Potassium Chloride Carbon Dioxide BUN Creatinine Glucose 195 H POC Glucose Hemoglobin A1c Magnesium Ferritin 254.3 H AST ALT Alkaline Phosphatase Lactate Dehydrogenase 359 H C-Reactive Protein 15.20 H Total Protein Albumin Arterial Blood Glucose Coronavirus (PCR) 04/17/21 04/17/21 04/17/21 03:50 08:26 08:26 WBC MCV MCH MCHC RDW Lymph % (Auto) [place] % (Auto) Eos % (Auto) Lymph # (Auto) [place] # (Auto) Eos # (Auto) Baso # (Auto) Seg Neutrophils % Seg Neuts % (Manual) Lymphocytes % (Manual) Seg Neutrophils # Seg Neutrophils # Man Lymphocytes # (Manual) D-Dimer 262.48 H ABG pH POC ABG pCO2 POC ABG pO2 ABG pO2 ABG HCO3 ABG O2 Saturation ABG Base Excess ABG Oxyhemoglobin ABG Sodium ABG Chloride ABG Glucose Oxyhemoglobin Carboxyhemoglobin Sodium Potassium Chloride Carbon Dioxide BUN 20 H Creatinine 0.5 L Glucose 249 H 225 H POC Glucose Hemoglobin A1c Magnesium Ferritin AST ALT Alkaline Phosphatase Lactate Dehydrogenase 338 H C-Reactive Protein 17.20 H Total Protein Albumin 3.2 L Arterial Blood Glucose Coronavirus (PCR) 04/17/21 04/17/21 04/17/21 08:26 15:04 Unknown WBC MCV MCH MCHC RDW Lymph % (Auto) [place] % (Auto) Eos % (Auto) Lymph # (Auto) [place] # (Auto) Eos # (Auto) Baso # (Auto) Seg Neutrophils % Seg Neuts % (Manual) Lymphocytes % (Manual) Seg Neutrophils # Seg Neutrophils # Man Lymphocytes # (Manual) D-Dimer ABG pH POC ABG pCO2 POC ABG pO2 ABG pO2 ABG HCO3 ABG O2 Saturation ABG Base Excess ABG Oxyhemoglobin ABG Sodium ABG Chloride ABG Glucose Oxyhemoglobin Carboxyhemoglobin Sodium Potassium Chloride Carbon Dioxide BUN 20 H Creatinine 0.5 L Glucose 246 H POC Glucose Hemoglobin A1c Magnesium Ferritin 392.0 H AST ALT Alkaline Phosphatase Lactate Dehydrogenase C-Reactive Protein Total Protein 8.3 H Albumin 3.1 L Arterial Blood Glucose Coronavirus (PCR) Positive A 04/18/21 04/18/21 04/18/21 05:06 05:06 07:36 WBC 11.6 H MCV MCH MCHC RDW 16.1 H Lymph % (Auto) [place] % (Auto) Eos % (Auto) Lymph # (Auto) [place] # (Auto) Eos # (Auto) Baso # (Auto) Seg Neutrophils % Seg Neuts % (Manual) Lymphocytes % (Manual) Seg Neutrophils # Seg Neutrophils # Man Lymphocytes # (Manual) D-Dimer ABG pH POC ABG pCO2 POC ABG pO2 ABG pO2 ABG HCO3 ABG O2 Saturation ABG Base Excess ABG Oxyhemoglobin ABG Sodium ABG Chloride ABG Glucose Oxyhemoglobin Carboxyhemoglobin Sodium Potassium 5.2 H Chloride Carbon Dioxide BUN 22 H Creatinine 0.5 L Glucose 315 H POC Glucose Hemoglobin A1c 8.5 H Magnesium Ferritin AST ALT Alkaline Phosphatase Lactate Dehydrogenase C-Reactive Protein Total Protein Albumin 3.3 L Arterial Blood Glucose Coronavirus (PCR) 04/18/21 04/18/21 04/18/21 11:59 16:43 23:24 WBC MCV MCH MCHC RDW Lymph % (Auto) [place] % (Auto) Eos % (Auto) Lymph # (Auto) [place] # (Auto) Eos # (Auto) Baso # (Auto) Seg Neutrophils % Seg Neuts % (Manual) Lymphocytes % (Manual) Seg Neutrophils # Seg Neutrophils # Man Lymphocytes # (Manual) D-Dimer ABG pH POC ABG pCO2 POC ABG pO2 ABG pO2 ABG HCO3 ABG O2 Saturation ABG Base Excess ABG Oxyhemoglobin ABG Sodium ABG Chloride ABG Glucose Oxyhemoglobin Carboxyhemoglobin Sodium Potassium Chloride Carbon Dioxide BUN Creatinine Glucose POC Glucose 284 H 273 H 290 H Hemoglobin A1c Magnesium Ferritin AST ALT Alkaline Phosphatase Lactate Dehydrogenase C-Reactive Protein Total Protein Albumin Arterial Blood Glucose Coronavirus (PCR) 04/19/21 04/19/21 04/19/21 04:19 04:19 08:10 WBC MCV MCH MCHC RDW 15.7 H Lymph % (Auto) [place] % (Auto) Eos % (Auto) Lymph # (Auto) [place] # (Auto) Eos # (Auto) Baso # (Auto) Seg Neutrophils % Seg Neuts % (Manual) Lymphocytes % (Manual) Seg Neutrophils # Seg Neutrophils # Man Lymphocytes # (Manual) D-Dimer ABG pH POC ABG pCO2 POC ABG pO2 ABG pO2 ABG HCO3 ABG O2 Saturation ABG Base Excess ABG Oxyhemoglobin ABG Sodium ABG Chloride ABG Glucose Oxyhemoglobin Carboxyhemoglobin Sodium Potassium Chloride Carbon Dioxide BUN 27 H Creatinine 0.4 L Glucose 184 H POC Glucose 194 H Hemoglobin A1c Magnesium Ferritin AST ALT Alkaline Phosphatase Lactate Dehydrogenase C-Reactive Protein Total Protein Albumin 3.1 L Arterial Blood Glucose Coronavirus (PCR) 04/19/21 04/19/21 04/19/21 11:38 16:25 22:04 WBC MCV MCH MCHC RDW Lymph % (Auto) [place] % (Auto) Eos % (Auto) Lymph # (Auto) [place] # (Auto) Eos # (Auto) Baso # (Auto) Seg Neutrophils % Seg Neuts % (Manual) Lymphocytes % (Manual) Seg Neutrophils # Seg Neutrophils # Man Lymphocytes # (Manual) D-Dimer ABG pH POC ABG pCO2 POC ABG pO2 ABG pO2 ABG HCO3 ABG O2 Saturation ABG Base Excess ABG Oxyhemoglobin ABG Sodium ABG Chloride ABG Glucose Oxyhemoglobin Carboxyhemoglobin Sodium Potassium Chloride Carbon Dioxide BUN Creatinine Glucose POC Glucose 224 H 297 H 251 H Hemoglobin A1c Magnesium Ferritin AST ALT Alkaline Phosphatase Lactate Dehydrogenase C-Reactive Protein Total Protein Albumin Arterial Blood Glucose Coronavirus (PCR) 04/20/21 04/20/21 04/20/21 05:28 08:43 16:21 WBC MCV MCH MCHC RDW Lymph % (Auto) [place] % (Auto) Eos % (Auto) Lymph # (Auto) [place] # (Auto) Eos # (Auto) Baso # (Auto) Seg Neutrophils % Seg Neuts % (Manual) Lymphocytes % (Manual) Seg Neutrophils # Seg Neutrophils # Man Lymphocytes # (Manual) D-Dimer ABG pH POC ABG pCO2 POC ABG pO2 ABG pO2 ABG HCO3 ABG O2 Saturation ABG Base Excess ABG Oxyhemoglobin ABG Sodium ABG Chloride ABG Glucose Oxyhemoglobin Carboxyhemoglobin Sodium Potassium Chloride Carbon Dioxide BUN 27 H Creatinine Glucose 192 H POC Glucose 173 H 253 H Hemoglobin A1c Magnesium Ferritin AST ALT Alkaline Phosphatase Lactate Dehydrogenase C-Reactive Protein Total Protein Albumin 3.0 L Arterial Blood Glucose Coronavirus (PCR) 04/21/21 04/21/21 04/21/21 07:58 12:05 16:08 WBC MCV MCH MCHC RDW Lymph % (Auto) [place] % (Auto) Eos % (Auto) Lymph # (Auto) [place] # (Auto) Eos # (Auto) Baso # (Auto) Seg Neutrophils % Seg Neuts % (Manual) Lymphocytes % (Manual) Seg Neutrophils # Seg Neutrophils # Man Lymphocytes # (Manual) D-Dimer ABG pH POC ABG pCO2 POC ABG pO2 ABG pO2 ABG HCO3 ABG O2 Saturation ABG Base Excess ABG Oxyhemoglobin ABG Sodium ABG Chloride ABG Glucose Oxyhemoglobin Carboxyhemoglobin Sodium Potassium Chloride Carbon Dioxide BUN Creatinine Glucose POC Glucose 140 H 252 H 214 H Hemoglobin A1c Magnesium Ferritin AST ALT Alkaline Phosphatase Lactate Dehydrogenase C-Reactive Protein Total Protein Albumin Arterial Blood Glucose Coronavirus (PCR) 04/21/21 04/22/21 04/22/21 21:42 08:37 12:01 WBC MCV MCH MCHC RDW Lymph % (Auto) [place] % (Auto) Eos % (Auto) Lymph # (Auto) [place] # (Auto) Eos # (Auto) Baso # (Auto) Seg Neutrophils % Seg Neuts % (Manual) Lymphocytes % (Manual) Seg Neutrophils # Seg Neutrophils # Man Lymphocytes # (Manual) D-Dimer ABG pH 7.457 H POC ABG pCO2 POC ABG pO2 49.4 L ABG pO2 ABG HCO3 ABG O2 Saturation ABG Base Excess ABG Oxyhemoglobin 85.6 L ABG Sodium ABG Chloride ABG Glucose 121 H Oxyhemoglobin Carboxyhemoglobin 0.3 L Sodium Potassium Chloride Carbon Dioxide BUN Creatinine Glucose POC Glucose 162 H 227 H Hemoglobin A1c Magnesium Ferritin AST ALT Alkaline Phosphatase Lactate Dehydrogenase C-Reactive Protein Total Protein Albumin Arterial Blood Glucose 121 H Coronavirus (PCR) 04/22/21 04/22/21 04/23/21 16:26 22:23 04:52 WBC MCV MCH MCHC RDW 15.7 H Lymph % (Auto) [place] % (Auto) Eos % (Auto) Lymph # (Auto) [place] # (Auto) Eos # (Auto) Baso # (Auto) Seg Neutrophils % Seg Neuts % (Manual) Lymphocytes % (Manual) Seg Neutrophils # Seg Neutrophils # Man Lymphocytes # (Manual) D-Dimer ABG pH POC ABG pCO2 POC ABG pO2 ABG pO2 ABG HCO3 ABG O2 Saturation ABG Base Excess ABG Oxyhemoglobin ABG Sodium ABG Chloride ABG Glucose Oxyhemoglobin Carboxyhemoglobin Sodium Potassium Chloride Carbon Dioxide BUN Creatinine Glucose POC Glucose 200 H 136 H Hemoglobin A1c Magnesium Ferritin AST ALT Alkaline Phosphatase Lactate Dehydrogenase C-Reactive Protein Total Protein Albumin Arterial Blood Glucose Coronavirus (PCR) 04/23/21 04/23/21 04/23/21 04:52 12:06 17:41 WBC MCV MCH MCHC RDW Lymph % (Auto) [place] % (Auto) Eos % (Auto) Lymph # (Auto) [place] # (Auto) Eos # (Auto) Baso # (Auto) Seg Neutrophils % Seg Neuts % (Manual) Lymphocytes % (Manual) Seg Neutrophils # Seg Neutrophils # Man Lymphocytes # (Manual) D-Dimer ABG pH POC ABG pCO2 POC ABG pO2 ABG pO2 ABG HCO3 ABG O2 Saturation ABG Base Excess ABG Oxyhemoglobin ABG Sodium ABG Chloride ABG Glucose Oxyhemoglobin Carboxyhemoglobin Sodium 136 L Potassium Chloride 97.7 L Carbon Dioxide BUN 23 H Creatinine Glucose 101 H POC Glucose 202 H 169 H Hemoglobin A1c Magnesium Ferritin AST 46 H ALT Alkaline Phosphatase Lactate Dehydrogenase C-Reactive Protein Total Protein Albumin 3.3 L Arterial Blood Glucose Coronavirus (PCR) 04/23/21 04/24/21 04/24/21 23:08 05:17 08:38 WBC MCV MCH MCHC RDW Lymph % (Auto) [place] % (Auto) Eos % (Auto) Lymph # (Auto) [place] # (Auto) Eos # (Auto) Baso # (Auto) Seg Neutrophils % Seg Neuts % (Manual) Lymphocytes % (Manual) Seg Neutrophils # Seg Neutrophils # Man Lymphocytes # (Manual) D-Dimer ABG pH POC ABG pCO2 POC ABG pO2 ABG pO2 ABG HCO3 ABG O2 Saturation ABG Base Excess ABG Oxyhemoglobin ABG Sodium ABG Chloride ABG Glucose Oxyhemoglobin Carboxyhemoglobin Sodium Potassium Chloride Carbon Dioxide BUN Creatinine Glucose POC Glucose 111 H 108 H 126 H Hemoglobin A1c Magnesium Ferritin AST ALT Alkaline Phosphatase Lactate Dehydrogenase C-Reactive Protein Total Protein Albumin Arterial Blood Glucose Coronavirus (PCR) 04/24/21 04/24/21 04/24/21 11:54 17:57 21:23 WBC MCV MCH MCHC RDW Lymph % (Auto) [place] % (Auto) Eos % (Auto) Lymph # (Auto) [place] # (Auto) Eos # (Auto) Baso # (Auto) Seg Neutrophils % Seg Neuts % (Manual) Lymphocytes % (Manual) Seg Neutrophils # Seg Neutrophils # Man Lymphocytes # (Manual) D-Dimer ABG pH POC ABG pCO2 POC ABG pO2 ABG pO2 ABG HCO3 ABG O2 Saturation ABG Base Excess ABG Oxyhemoglobin ABG Sodium ABG Chloride ABG Glucose Oxyhemoglobin Carboxyhemoglobin Sodium Potassium Chloride Carbon Dioxide BUN Creatinine Glucose POC Glucose 147 H 177 H 138 H Hemoglobin A1c Magnesium Ferritin AST ALT Alkaline Phosphatase Lactate Dehydrogenase C-Reactive Protein Total Protein Albumin Arterial Blood Glucose Coronavirus (PCR) 04/25/21 04/25/21 04/25/21 07:06 11:23 15:43 WBC MCV MCH MCHC RDW Lymph % (Auto) [place] % (Auto) Eos % (Auto) Lymph # (Auto) [place] # (Auto) Eos # (Auto) Baso # (Auto) Seg Neutrophils % Seg Neuts % (Manual) Lymphocytes % (Manual) Seg Neutrophils # Seg Neutrophils # Man Lymphocytes # (Manual) D-Dimer ABG pH POC ABG pCO2 POC ABG pO2 ABG pO2 ABG HCO3 ABG O2 Saturation ABG Base Excess ABG Oxyhemoglobin ABG Sodium ABG Chloride ABG Glucose Oxyhemoglobin Carboxyhemoglobin Sodium Potassium Chloride Carbon Dioxide BUN Creatinine Glucose POC Glucose 147 H 169 H 227 H Hemoglobin A1c Magnesium Ferritin AST ALT Alkaline Phosphatase Lactate Dehydrogenase C-Reactive Protein Total Protein Albumin Arterial Blood Glucose Coronavirus (PCR) 04/25/21 04/26/21 04/26/21 21:22 02:45 05:15 WBC MCV MCH MCHC RDW Lymph % (Auto) [place] % (Auto) Eos % (Auto) Lymph # (Auto) [place] # (Auto) Eos # (Auto) Baso # (Auto) Seg Neutrophils % Seg Neuts % (Manual) Lymphocytes % (Manual) Seg Neutrophils # Seg Neutrophils # Man Lymphocytes # (Manual) D-Dimer ABG pH POC ABG pCO2 POC ABG pO2 70.7 L ABG pO2 ABG HCO3 ABG O2 Saturation ABG Base Excess ABG Oxyhemoglobin 93.0 L ABG Sodium 132.7 L ABG Chloride ABG Glucose 115 H Oxyhemoglobin Carboxyhemoglobin Sodium Potassium Chloride 95.8 L Carbon Dioxide 32 H BUN 20 H Creatinine Glucose 102 H POC Glucose 196 H Hemoglobin A1c Magnesium Ferritin AST ALT Alkaline Phosphatase Lactate Dehydrogenase C-Reactive Protein Total Protein Albumin Arterial Blood Glucose 115 H Coronavirus (PCR) 04/26/21 04/26/21 04/26/21 11:49 16:09 21:07 WBC MCV MCH MCHC RDW Lymph % (Auto) [place] % (Auto) Eos % (Auto) Lymph # (Auto) [place] # (Auto) Eos # (Auto) Baso # (Auto) Seg Neutrophils % Seg Neuts % (Manual) Lymphocytes % (Manual) Seg Neutrophils # Seg Neutrophils # Man Lymphocytes # (Manual) D-Dimer ABG pH POC ABG pCO2 POC ABG pO2 ABG pO2 ABG HCO3 ABG O2 Saturation ABG Base Excess ABG Oxyhemoglobin ABG Sodium ABG Chloride ABG Glucose Oxyhemoglobin Carboxyhemoglobin Sodium Potassium Chloride Carbon Dioxide BUN Creatinine Glucose POC Glucose 114 H 188 H 136 H Hemoglobin A1c Magnesium Ferritin AST ALT Alkaline Phosphatase Lactate Dehydrogenase C-Reactive Protein Total Protein Albumin Arterial Blood Glucose Coronavirus (PCR) 04/27/21 04/27/21 04/28/21 17:34 22:12 08:26 WBC MCV MCH MCHC RDW Lymph % (Auto) [place] % (Auto) Eos % (Auto) Lymph # (Auto) [place] # (Auto) Eos # (Auto) Baso # (Auto) Seg Neutrophils % Seg Neuts % (Manual) Lymphocytes % (Manual) Seg Neutrophils # Seg Neutrophils # Man Lymphocytes # (Manual) D-Dimer ABG pH POC ABG pCO2 POC ABG pO2 ABG pO2 ABG HCO3 ABG O2 Saturation ABG Base Excess ABG Oxyhemoglobin ABG Sodium ABG Chloride ABG Glucose Oxyhemoglobin Carboxyhemoglobin Sodium Potassium Chloride Carbon Dioxide BUN Creatinine Glucose POC Glucose 128 H 159 H 69 L Hemoglobin A1c Magnesium Ferritin AST ALT Alkaline Phosphatase Lactate Dehydrogenase C-Reactive Protein Total Protein Albumin Arterial Blood Glucose Coronavirus (PCR) 04/28/21 04/28/21 04/29/21 12:22 21:11 06:05 WBC MCV MCH MCHC RDW Lymph % (Auto) [place] % (Auto) Eos % (Auto) Lymph # (Auto) [place] # (Auto) Eos # (Auto) Baso # (Auto) Seg Neutrophils % Seg Neuts % (Manual) Lymphocytes % (Manual) Seg Neutrophils # Seg Neutrophils # Man Lymphocytes # (Manual) D-Dimer ABG pH POC ABG pCO2 POC ABG pO2 ABG pO2 ABG HCO3 ABG O2 Saturation ABG Base Excess ABG Oxyhemoglobin ABG Sodium ABG Chloride ABG Glucose Oxyhemoglobin Carboxyhemoglobin Sodium 132 L Potassium Chloride 94.4 L Carbon Dioxide BUN Creatinine 0.2 L D Glucose 140 H POC Glucose 141 H 171 H Hemoglobin A1c Magnesium Ferritin AST ALT Alkaline Phosphatase Lactate Dehydrogenase C-Reactive Protein Total Protein Albumin Arterial Blood Glucose Coronavirus (PCR) 04/29/21 04/29/21 04/29/21 06:05 07:24 11:36 WBC MCV MCH MCHC 35 H RDW 15.9 H Lymph % (Auto) [place] % (Auto) Eos % (Auto) Lymph # (Auto) [place] # (Auto) Eos # (Auto) Baso # (Auto) Seg Neutrophils % Seg Neuts % (Manual) Lymphocytes % (Manual) Seg Neutrophils # Seg Neutrophils # Man Lymphocytes # (Manual) D-Dimer ABG pH POC ABG pCO2 POC ABG pO2 ABG pO2 ABG HCO3 ABG O2 Saturation ABG Base Excess ABG Oxyhemoglobin ABG Sodium ABG Chloride ABG Glucose Oxyhemoglobin Carboxyhemoglobin Sodium Potassium Chloride Carbon Dioxide BUN Creatinine Glucose POC Glucose 141 H 220 H Hemoglobin A1c Magnesium Ferritin AST ALT Alkaline Phosphatase Lactate Dehydrogenase C-Reactive Protein Total Protein Albumin Arterial Blood Glucose Coronavirus (PCR) 04/29/21 04/29/21 04/29/21 14:23 15:30 17:06 WBC MCV MCH MCHC RDW Lymph % (Auto) [place] % (Auto) Eos % (Auto) Lymph # (Auto) [place] # (Auto) Eos # (Auto) Baso # (Auto) Seg Neutrophils % Seg Neuts % (Manual) Lymphocytes % (Manual) Seg Neutrophils # Seg Neutrophils # Man Lymphocytes # (Manual) D-Dimer ABG pH POC ABG pCO2 POC ABG pO2 ABG pO2 52.6 L ABG HCO3 ABG O2 Saturation 86.4 L ABG Base Excess ABG Oxyhemoglobin ABG Sodium ABG Chloride ABG Glucose Oxyhemoglobin 84.6 L Carboxyhemoglobin Sodium Potassium Chloride Carbon Dioxide BUN Creatinine Glucose POC Glucose 173 H 158 H Hemoglobin A1c Magnesium Ferritin AST ALT Alkaline Phosphatase Lactate Dehydrogenase C-Reactive Protein Total Protein Albumin Arterial Blood Glucose Coronavirus (PCR) 04/29/21 04/30/21 04/30/21 21:27 07:16 08:00 WBC MCV MCH MCHC RDW 16.1 H Lymph % (Auto) [place] % (Auto) Eos % (Auto) Lymph # (Auto) [place] # (Auto) Eos # (Auto) Baso # (Auto) Seg Neutrophils % Seg Neuts % (Manual) Lymphocytes % (Manual) Seg Neutrophils # Seg Neutrophils # Man Lymphocytes # (Manual) D-Dimer ABG pH POC ABG pCO2 POC ABG pO2 ABG pO2 ABG HCO3 ABG O2 Saturation ABG Base Excess ABG Oxyhemoglobin ABG Sodium ABG Chloride ABG Glucose Oxyhemoglobin Carboxyhemoglobin Sodium Potassium Chloride Carbon Dioxide BUN Creatinine Glucose POC Glucose 244 H 175 H Hemoglobin A1c Magnesium Ferritin AST ALT Alkaline Phosphatase Lactate Dehydrogenase C-Reactive Protein Total Protein Albumin Arterial Blood Glucose Coronavirus (PCR) 04/30/21 04/30/21 04/30/21 08:00 08:00 11:03 WBC MCV MCH MCHC RDW Lymph % (Auto) [place] % (Auto) Eos % (Auto) Lymph # (Auto) [place] # (Auto) Eos # (Auto) Baso # (Auto) Seg Neutrophils % Seg Neuts % (Manual) Lymphocytes % (Manual) Seg Neutrophils # Seg Neutrophils # Man Lymphocytes # (Manual) D-Dimer 1796.87 H ABG pH POC ABG pCO2 POC ABG pO2 ABG pO2 ABG HCO3 ABG O2 Saturation ABG Base Excess ABG Oxyhemoglobin ABG Sodium ABG Chloride ABG Glucose Oxyhemoglobin Carboxyhemoglobin Sodium 135 L Potassium Chloride 96.3 L Carbon Dioxide BUN Creatinine 0.2 L Glucose 153 H POC Glucose 183 H Hemoglobin A1c Magnesium Ferritin AST 41 H ALT 76 H Alkaline Phosphatase 160 H Lactate Dehydrogenase 522 H C-Reactive Protein Total Protein 6.1 L Albumin 3.1 L Arterial Blood Glucose Coronavirus (PCR) 04/30/21 04/30/21 05/01/21 17:04 22:17 05:39 WBC MCV MCH MCHC RDW Lymph % (Auto) [place] % (Auto) Eos % (Auto) Lymph # (Auto) [place] # (Auto) Eos # (Auto) Baso # (Auto) Seg Neutrophils % Seg Neuts % (Manual) Lymphocytes % (Manual) Seg Neutrophils # Seg Neutrophils # Man Lymphocytes # (Manual) D-Dimer ABG pH POC ABG pCO2 POC ABG pO2 ABG pO2 ABG HCO3 ABG O2 Saturation ABG Base Excess ABG Oxyhemoglobin ABG Sodium ABG Chloride ABG Glucose Oxyhemoglobin Carboxyhemoglobin Sodium 133 L Potassium Chloride 92.1 L Carbon Dioxide BUN 24 H Creatinine 0.4 L D Glucose 269 H POC Glucose 167 H 208 H Hemoglobin A1c Magnesium Ferritin AST ALT 66 H Alkaline Phosphatase 142 H Lactate Dehydrogenase C-Reactive Protein Total Protein Albumin 3.2 L Arterial Blood Glucose Coronavirus (PCR) 05/01/21 05/01/21 05/01/21 05:39 05:39 07:45 WBC MCV MCH MCHC RDW 16.0 H Lymph % (Auto) [place] % (Auto) Eos % (Auto) Lymph # (Auto) [place] # (Auto) Eos # (Auto) Baso # (Auto) Seg Neutrophils % Seg Neuts % (Manual) Lymphocytes % (Manual) Seg Neutrophils # Seg Neutrophils # Man Lymphocytes # (Manual) D-Dimer 3984.95 H ABG pH POC ABG pCO2 POC ABG pO2 ABG pO2 ABG HCO3 ABG O2 Saturation ABG Base Excess ABG Oxyhemoglobin ABG Sodium ABG Chloride ABG Glucose Oxyhemoglobin Carboxyhemoglobin Sodium Potassium Chloride Carbon Dioxide BUN Creatinine Glucose POC Glucose 229 H Hemoglobin A1c Magnesium Ferritin AST ALT Alkaline Phosphatase Lactate Dehydrogenase C-Reactive Protein Total Protein Albumin Arterial Blood Glucose Coronavirus (PCR) 05/01/21 05/01/21 05/01/21 12:10 15:46 21:06 WBC MCV MCH MCHC RDW Lymph % (Auto) [place] % (Auto) Eos % (Auto) Lymph # (Auto) [place] # (Auto) Eos # (Auto) Baso # (Auto) Seg Neutrophils % Seg Neuts % (Manual) Lymphocytes % (Manual) Seg Neutrophils # Seg Neutrophils # Man Lymphocytes # (Manual) D-Dimer ABG pH POC ABG pCO2 POC ABG pO2 ABG pO2 ABG HCO3 ABG O2 Saturation ABG Base Excess ABG Oxyhemoglobin ABG Sodium ABG Chloride ABG Glucose Oxyhemoglobin Carboxyhemoglobin Sodium Potassium Chloride Carbon Dioxide BUN Creatinine Glucose POC Glucose 296 H 279 H 232 H Hemoglobin A1c Magnesium Ferritin AST ALT Alkaline Phosphatase Lactate Dehydrogenase C-Reactive Protein Total Protein Albumin Arterial Blood Glucose Coronavirus (PCR) 05/02/21 05/02/21 05/02/21 04:55 04:55 04:55 WBC MCV MCH MCHC RDW 16.1 H Lymph % (Auto) [place] % (Auto) Eos % (Auto) Lymph # (Auto) [place] # (Auto) Eos # (Auto) Baso # (Auto) Seg Neutrophils % Seg Neuts % (Manual) Lymphocytes % (Manual) Seg Neutrophils # Seg Neutrophils # Man Lymphocytes # (Manual) D-Dimer 1401.08 H ABG pH POC ABG pCO2 POC ABG pO2 ABG pO2 ABG HCO3 ABG O2 Saturation ABG Base Excess ABG Oxyhemoglobin ABG Sodium ABG Chloride ABG Glucose Oxyhemoglobin Carboxyhemoglobin Sodium 131 L Potassium Chloride 95.5 L Carbon Dioxide BUN 20 H Creatinine 0.3 L Glucose 288 H POC Glucose Hemoglobin A1c Magnesium Ferritin AST ALT Alkaline Phosphatase Lactate Dehydrogenase C-Reactive Protein Total Protein 6.0 L Albumin 3.1 L Arterial Blood Glucose Coronavirus (PCR) 05/02/21 05/02/21 05/02/21 07:53 11:45 15:25 WBC MCV MCH MCHC RDW Lymph % (Auto) [place] % (Auto) Eos % (Auto) Lymph # (Auto) [place] # (Auto) Eos # (Auto) Baso # (Auto) Seg Neutrophils % Seg Neuts % (Manual) Lymphocytes % (Manual) Seg Neutrophils # Seg Neutrophils # Man Lymphocytes # (Manual) D-Dimer ABG pH POC ABG pCO2 POC ABG pO2 ABG pO2 ABG HCO3 ABG O2 Saturation ABG Base Excess ABG Oxyhemoglobin ABG Sodium ABG Chloride ABG Glucose Oxyhemoglobin Carboxyhemoglobin Sodium Potassium Chloride Carbon Dioxide BUN Creatinine Glucose POC Glucose 180 H 228 H 275 H Hemoglobin A1c Magnesium Ferritin AST ALT Alkaline Phosphatase Lactate Dehydrogenase C-Reactive Protein Total Protein Albumin Arterial Blood Glucose Coronavirus (PCR) 05/02/21 05/03/21 05/03/21 22:56 04:30 04:49 WBC MCV MCH MCHC RDW Lymph % (Auto) [place] % (Auto) Eos % (Auto) Lymph # (Auto) [place] # (Auto) Eos # (Auto) Baso # (Auto) Seg Neutrophils % Seg Neuts % (Manual) Lymphocytes % (Manual) Seg Neutrophils # Seg Neutrophils # Man Lymphocytes # (Manual) D-Dimer ABG pH 7.229 L POC ABG pCO2 POC ABG pO2 65.3 L ABG pO2 ABG HCO3 ABG O2 Saturation ABG Base Excess ABG Oxyhemoglobin 87.8 L ABG Sodium 133.0 L ABG Chloride 97.0 L ABG Glucose 403 H Oxyhemoglobin Carboxyhemoglobin Sodium 130 L Potassium Chloride 94.9 L Carbon Dioxide BUN 20 H Creatinine 0.5 L D Glucose 359 H POC Glucose 293 H Hemoglobin A1c Magnesium Ferritin AST 54 H ALT 75 H Alkaline Phosphatase 138 H Lactate Dehydrogenase C-Reactive Protein Total Protein Albumin 3.6 L Arterial Blood Glucose 403 H Coronavirus (PCR) 05/03/21 05/03/21 05/03/21 05:27 11:26 17:57 WBC MCV MCH MCHC RDW Lymph % (Auto) [place] % (Auto) Eos % (Auto) Lymph # (Auto) [place] # (Auto) Eos # (Auto) Baso # (Auto) Seg Neutrophils % Seg Neuts % (Manual) Lymphocytes % (Manual) Seg Neutrophils # Seg Neutrophils # Man Lymphocytes # (Manual) D-Dimer ABG pH POC ABG pCO2 POC ABG pO2 ABG pO2 ABG HCO3 ABG O2 Saturation ABG Base Excess ABG Oxyhemoglobin ABG Sodium ABG Chloride ABG Glucose Oxyhemoglobin Carboxyhemoglobin Sodium Potassium Chloride Carbon Dioxide BUN Creatinine Glucose POC Glucose 361 H 297 H 226 H Hemoglobin A1c Magnesium Ferritin AST ALT Alkaline Phosphatase Lactate Dehydrogenase C-Reactive Protein Total Protein Albumin Arterial Blood Glucose Coronavirus (PCR) 05/03/21 05/04/21 05/04/21 23:12 05:12 07:30 WBC MCV MCH MCHC RDW Lymph % (Auto) [place] % (Auto) Eos % (Auto) Lymph # (Auto) [place] # (Auto) Eos # (Auto) Baso # (Auto) Seg Neutrophils % Seg Neuts % (Manual) Lymphocytes % (Manual) Seg Neutrophils # Seg Neutrophils # Man Lymphocytes # (Manual) D-Dimer ABG pH POC ABG pCO2 POC ABG pO2 ABG pO2 ABG HCO3 ABG O2 Saturation ABG Base Excess ABG Oxyhemoglobin ABG Sodium ABG Chloride ABG Glucose Oxyhemoglobin Carboxyhemoglobin Sodium Potassium Chloride Carbon Dioxide BUN Creatinine Glucose POC Glucose 282 H 285 H 254 H Hemoglobin A1c Magnesium Ferritin AST ALT Alkaline Phosphatase Lactate Dehydrogenase C-Reactive Protein Total Protein Albumin Arterial Blood Glucose Coronavirus (PCR) 05/04/21 05/04/21 05/04/21 08:58 11:45 16:07 WBC MCV MCH MCHC RDW Lymph % (Auto) [place] % (Auto) Eos % (Auto) Lymph # (Auto) [place] # (Auto) Eos # (Auto) Baso # (Auto) Seg Neutrophils % Seg Neuts % (Manual) Lymphocytes % (Manual) Seg Neutrophils # Seg Neutrophils # Man Lymphocytes # (Manual) D-Dimer ABG pH POC ABG pCO2 POC ABG pO2 ABG pO2 ABG HCO3 ABG O2 Saturation ABG Base Excess ABG Oxyhemoglobin ABG Sodium ABG Chloride ABG Glucose Oxyhemoglobin Carboxyhemoglobin Sodium 134 L Potassium Chloride Carbon Dioxide BUN 20 H Creatinine 0.3 L Glucose 267 H POC Glucose 244 H 297 H Hemoglobin A1c Magnesium Ferritin AST ALT Alkaline Phosphatase Lactate Dehydrogenase C-Reactive Protein Total Protein 6.0 L Albumin 3.2 L Arterial Blood Glucose Coronavirus (PCR) 05/04/21 05/05/21 05/05/21 23:32 05:00 05:13 WBC MCV MCH MCHC RDW Lymph % (Auto) [place] % (Auto) Eos % (Auto) Lymph # (Auto) [place] # (Auto) Eos # (Auto) Baso # (Auto) Seg Neutrophils % Seg Neuts % (Manual) Lymphocytes % (Manual) Seg Neutrophils # Seg Neutrophils # Man Lymphocytes # (Manual) D-Dimer ABG pH POC ABG pCO2 POC ABG pO2 ABG pO2 ABG HCO3 ABG O2 Saturation ABG Base Excess ABG Oxyhemoglobin ABG Sodium ABG Chloride ABG Glucose Oxyhemoglobin Carboxyhemoglobin Sodium 132 L Potassium Chloride 96.4 L Carbon Dioxide BUN 22 H Creatinine 0.3 L Glucose 228 H POC Glucose 154 H 260 H Hemoglobin A1c Magnesium Ferritin AST ALT 67 H Alkaline Phosphatase Lactate Dehydrogenase C-Reactive Protein Total Protein 6.1 L Albumin 3.2 L Arterial Blood Glucose Coronavirus (PCR) 05/05/21 05/05/21 05/05/21 11:32 17:49 23:07 WBC MCV MCH MCHC RDW Lymph % (Auto) [place] % (Auto) Eos % (Auto) Lymph # (Auto) [place] # (Auto) Eos # (Auto) Baso # (Auto) Seg Neutrophils % Seg Neuts % (Manual) Lymphocytes % (Manual) Seg Neutrophils # Seg Neutrophils # Man Lymphocytes # (Manual) D-Dimer ABG pH POC ABG pCO2 POC ABG pO2 ABG pO2 ABG HCO3 ABG O2 Saturation ABG Base Excess ABG Oxyhemoglobin ABG Sodium ABG Chloride ABG Glucose Oxyhemoglobin Carboxyhemoglobin Sodium Potassium Chloride Carbon Dioxide BUN Creatinine Glucose POC Glucose 279 H 308 H 213 H Hemoglobin A1c Magnesium Ferritin AST ALT Alkaline Phosphatase Lactate Dehydrogenase C-Reactive Protein Total Protein Albumin Arterial Blood Glucose Coronavirus (PCR) 05/06/21 05/06/21 05/06/21 05:00 05:00 05:20 WBC MCV MCH MCHC RDW 16.8 H Lymph % (Auto) [place] % (Auto) Eos % (Auto) Lymph # (Auto) [place] # (Auto) Eos # (Auto) Baso # (Auto) Seg Neutrophils % Seg Neuts % (Manual) 99.0 H Lymphocytes % (Manual) Seg Neutrophils # Seg Neutrophils # Man 10.9 H Lymphocytes # (Manual) 0.0 L D-Dimer ABG pH POC ABG pCO2 POC ABG pO2 ABG pO2 ABG HCO3 ABG O2 Saturation ABG Base Excess ABG Oxyhemoglobin ABG Sodium ABG Chloride ABG Glucose Oxyhemoglobin Carboxyhemoglobin Sodium 133 L Potassium Chloride Carbon Dioxide BUN 21 H Creatinine 0.3 L Glucose 259 H POC Glucose 308 H Hemoglobin A1c Magnesium Ferritin AST ALT Alkaline Phosphatase Lactate Dehydrogenase C-Reactive Protein Total Protein Albumin 3.2 L Arterial Blood Glucose Coronavirus (PCR) 05/06/21 05/06/21 05/06/21 11:24 17:54 21:32 WBC MCV MCH MCHC RDW Lymph % (Auto) [place] % (Auto) Eos % (Auto) Lymph # (Auto) [place] # (Auto) Eos # (Auto) Baso # (Auto) Seg Neutrophils % Seg Neuts % (Manual) Lymphocytes % (Manual) Seg Neutrophils # Seg Neutrophils # Man Lymphocytes # (Manual) D-Dimer ABG pH POC ABG pCO2 POC ABG pO2 ABG pO2 ABG HCO3 ABG O2 Saturation ABG Base Excess ABG Oxyhemoglobin ABG Sodium ABG Chloride ABG Glucose Oxyhemoglobin Carboxyhemoglobin Sodium Potassium Chloride Carbon Dioxide BUN Creatinine Glucose POC Glucose 262 H 124 H 246 H Hemoglobin A1c Magnesium Ferritin AST ALT Alkaline Phosphatase Lactate Dehydrogenase C-Reactive Protein Total Protein Albumin Arterial Blood Glucose Coronavirus (PCR) 05/06/21 05/07/21 05/07/21 23:10 04:54 04:54 WBC MCV MCH MCHC RDW Lymph % (Auto) [place] % (Auto) Eos % (Auto) Lymph # (Auto) [place] # (Auto) Eos # (Auto) Baso # (Auto) Seg Neutrophils % Seg Neuts % (Manual) Lymphocytes % (Manual) Seg Neutrophils # Seg Neutrophils # Man Lymphocytes # (Manual) D-Dimer 1609.28 H ABG pH POC ABG pCO2 POC ABG pO2 ABG pO2 ABG HCO3 ABG O2 Saturation ABG Base Excess ABG Oxyhemoglobin ABG Sodium ABG Chloride ABG Glucose Oxyhemoglobin Carboxyhemoglobin Sodium 136 L Potassium Chloride Carbon Dioxide BUN 23 H Creatinine 0.3 L Glucose 110 H POC Glucose 249 H Hemoglobin A1c Magnesium Ferritin AST ALT Alkaline Phosphatase Lactate Dehydrogenase C-Reactive Protein Total Protein 6.2 L Albumin 3.0 L Arterial Blood Glucose Coronavirus (PCR) 05/07/21 05/07/21 05/07/21 04:54 04:54 11:41 WBC MCV MCH MCHC RDW Lymph % (Auto) [place] % (Auto) Eos % (Auto) Lymph # (Auto) [place] # (Auto) Eos # (Auto) Baso # (Auto) Seg Neutrophils % Seg Neuts % (Manual) Lymphocytes % (Manual) Seg Neutrophils # Seg Neutrophils # Man Lymphocytes # (Manual) D-Dimer ABG pH POC ABG pCO2 POC ABG pO2 ABG pO2 ABG HCO3 ABG O2 Saturation ABG Base Excess ABG Oxyhemoglobin ABG Sodium ABG Chloride ABG Glucose Oxyhemoglobin Carboxyhemoglobin Sodium Potassium Chloride Carbon Dioxide BUN Creatinine Glucose POC Glucose 118 H Hemoglobin A1c Magnesium Ferritin 296.1 H AST ALT Alkaline Phosphatase Lactate Dehydrogenase 724 H C-Reactive Protein Total Protein Albumin Arterial Blood Glucose Coronavirus (PCR) 05/07/21 05/07/21 05/08/21 16:43 22:34 06:44 WBC MCV MCH MCHC RDW Lymph % (Auto) [place] % (Auto) Eos % (Auto) Lymph # (Auto) [place] # (Auto) Eos # (Auto) Baso # (Auto) Seg Neutrophils % Seg Neuts % (Manual) Lymphocytes % (Manual) Seg Neutrophils # Seg Neutrophils # Man Lymphocytes # (Manual) D-Dimer ABG pH POC ABG pCO2 POC ABG pO2 ABG pO2 ABG HCO3 ABG O2 Saturation ABG Base Excess ABG Oxyhemoglobin ABG Sodium ABG Chloride ABG Glucose Oxyhemoglobin Carboxyhemoglobin Sodium Potassium Chloride Carbon Dioxide BUN Creatinine Glucose POC Glucose 159 H 233 H 235 H Hemoglobin A1c Magnesium Ferritin AST ALT Alkaline Phosphatase Lactate Dehydrogenase C-Reactive Protein Total Protein Albumin Arterial Blood Glucose Coronavirus (PCR) 05/08/21 05/08/21 05/08/21 07:49 11:56 17:13 WBC MCV MCH MCHC RDW Lymph % (Auto) [place] % (Auto) Eos % (Auto) Lymph # (Auto) [place] # (Auto) Eos # (Auto) Baso # (Auto) Seg Neutrophils % Seg Neuts % (Manual) Lymphocytes % (Manual) Seg Neutrophils # Seg Neutrophils # Man Lymphocytes # (Manual) D-Dimer ABG pH POC ABG pCO2 POC ABG pO2 ABG pO2 ABG HCO3 ABG O2 Saturation ABG Base Excess ABG Oxyhemoglobin ABG Sodium ABG Chloride ABG Glucose Oxyhemoglobin Carboxyhemoglobin Sodium Potassium Chloride Carbon Dioxide BUN Creatinine Glucose POC Glucose 219 H 184 H 182 H Hemoglobin A1c Magnesium Ferritin AST ALT Alkaline Phosphatase Lactate Dehydrogenase C-Reactive Protein Total Protein Albumin Arterial Blood Glucose Coronavirus (PCR) 05/08/21 05/09/21 05/09/21 23:35 05:20 05:20 WBC MCV MCH MCHC RDW Lymph % (Auto) [place] % (Auto) Eos % (Auto) Lymph # (Auto) [place] # (Auto) Eos # (Auto) Baso # (Auto) Seg Neutrophils % Seg Neuts % (Manual) Lymphocytes % (Manual) Seg Neutrophils # Seg Neutrophils # Man Lymphocytes # (Manual) D-Dimer 1003.87 H ABG pH POC ABG pCO2 POC ABG pO2 ABG pO2 ABG HCO3 ABG O2 Saturation ABG Base Excess ABG Oxyhemoglobin ABG Sodium ABG Chloride ABG Glucose Oxyhemoglobin Carboxyhemoglobin Sodium Potassium Chloride Carbon Dioxide BUN Creatinine Glucose POC Glucose 198 H Hemoglobin A1c Magnesium Ferritin 378.7 H AST ALT Alkaline Phosphatase Lactate Dehydrogenase C-Reactive Protein Total Protein Albumin Arterial Blood Glucose Coronavirus (PCR) 05/09/21 05/09/21 05/09/21 05:20 06:04 12:53 WBC MCV MCH MCHC RDW Lymph % (Auto) [place] % (Auto) Eos % (Auto) Lymph # (Auto) [place] # (Auto) Eos # (Auto) Baso # (Auto) Seg Neutrophils % Seg Neuts % (Manual) Lymphocytes % (Manual) Seg Neutrophils # Seg Neutrophils # Man Lymphocytes # (Manual) D-Dimer ABG pH POC ABG pCO2 POC ABG pO2 ABG pO2 ABG HCO3 ABG O2 Saturation ABG Base Excess ABG Oxyhemoglobin ABG Sodium ABG Chloride ABG Glucose Oxyhemoglobin Carboxyhemoglobin Sodium Potassium Chloride Carbon Dioxide BUN Creatinine Glucose POC Glucose 159 H 180 H Hemoglobin A1c Magnesium Ferritin AST ALT Alkaline Phosphatase Lactate Dehydrogenase 558 H C-Reactive Protein 2.40 H Total Protein Albumin Arterial Blood Glucose Coronavirus (PCR) 05/09/21 05/09/21 05/10/21 16:43 21:27 10:18 WBC MCV MCH MCHC RDW Lymph % (Auto) [place] % (Auto) Eos % (Auto) Lymph # (Auto) [place] # (Auto) Eos # (Auto) Baso # (Auto) Seg Neutrophils % Seg Neuts % (Manual) Lymphocytes % (Manual) Seg Neutrophils # Seg Neutrophils # Man Lymphocytes # (Manual) D-Dimer ABG pH POC ABG pCO2 POC ABG pO2 ABG pO2 ABG HCO3 ABG O2 Saturation ABG Base Excess ABG Oxyhemoglobin ABG Sodium ABG Chloride ABG Glucose Oxyhemoglobin Carboxyhemoglobin Sodium Potassium Chloride Carbon Dioxide BUN Creatinine Glucose POC Glucose 212 H 285 H 261 H Hemoglobin A1c Magnesium Ferritin AST ALT Alkaline Phosphatase Lactate Dehydrogenase C-Reactive Protein Total Protein Albumin Arterial Blood Glucose Coronavirus (PCR) 05/10/21 05/10/21 05/11/21 17:58 18:02 00:29 WBC MCV MCH MCHC RDW Lymph % (Auto) [place] % (Auto) Eos % (Auto) Lymph # (Auto) [place] # (Auto) Eos # (Auto) Baso # (Auto) Seg Neutrophils % Seg Neuts % (Manual) Lymphocytes % (Manual) Seg Neutrophils # Seg Neutrophils # Man Lymphocytes # (Manual) D-Dimer ABG pH POC ABG pCO2 POC ABG pO2 ABG pO2 ABG HCO3 ABG O2 Saturation ABG Base Excess ABG Oxyhemoglobin ABG Sodium ABG Chloride ABG Glucose Oxyhemoglobin Carboxyhemoglobin Sodium Potassium Chloride Carbon Dioxide BUN Creatinine Glucose POC Glucose 213 H 179 H 149 H Hemoglobin A1c Magnesium Ferritin AST ALT Alkaline Phosphatase Lactate Dehydrogenase C-Reactive Protein Total Protein Albumin Arterial Blood Glucose Coronavirus (PCR) 05/11/21 05/11/21 05/11/21 05:22 11:32 17:00 WBC 14.9 H MCV MCH MCHC RDW 18.9 H Lymph % (Auto) 4.9 L [place] % (Auto) Eos % (Auto) Lymph # (Auto) 0.7 L [place] # (Auto) Eos # (Auto) Baso # (Auto) 0.2 H Seg Neutrophils % Seg Neuts % (Manual) Lymphocytes % (Manual) Seg Neutrophils # 13.3 H Seg Neutrophils # Man Lymphocytes # (Manual) D-Dimer ABG pH POC ABG pCO2 POC ABG pO2 ABG pO2 ABG HCO3 ABG O2 Saturation ABG Base Excess ABG Oxyhemoglobin ABG Sodium ABG Chloride ABG Glucose Oxyhemoglobin Carboxyhemoglobin Sodium Potassium Chloride Carbon Dioxide BUN Creatinine Glucose POC Glucose 162 H 179 H Hemoglobin A1c Magnesium Ferritin AST ALT Alkaline Phosphatase Lactate Dehydrogenase C-Reactive Protein Total Protein Albumin Arterial Blood Glucose Coronavirus (PCR) 05/11/21 05/11/21 05/11/21 17:00 17:33 22:03 WBC MCV MCH MCHC RDW Lymph % (Auto) [place] % (Auto) Eos % (Auto) Lymph # (Auto) [place] # (Auto) Eos # (Auto) Baso # (Auto) Seg Neutrophils % Seg Neuts % (Manual) Lymphocytes % (Manual) Seg Neutrophils # Seg Neutrophils # Man Lymphocytes # (Manual) D-Dimer ABG pH POC ABG pCO2 POC ABG pO2 ABG pO2 ABG HCO3 ABG O2 Saturation ABG Base Excess ABG Oxyhemoglobin ABG Sodium ABG Chloride ABG Glucose Oxyhemoglobin Carboxyhemoglobin Sodium 135 L Potassium Chloride 97.3 L Carbon Dioxide BUN 21 H Creatinine 0.3 L Glucose 133 H POC Glucose 140 H 282 H Hemoglobin A1c Magnesium Ferritin AST ALT 60 H Alkaline Phosphatase Lactate Dehydrogenase C-Reactive Protein Total Protein Albumin 3.1 L Arterial Blood Glucose Coronavirus (PCR) 05/12/21 05/12/21 05/12/21 04:05 04:05 04:05 WBC MCV MCH MCHC RDW 18.4 H Lymph % (Auto) [place] % (Auto) Eos % (Auto) Lymph # (Auto) [place] # (Auto) Eos # (Auto) Baso # (Auto) Seg Neutrophils % Seg Neuts % (Manual) 94.0 H Lymphocytes % (Manual) 4.0 L Seg Neutrophils # Seg Neutrophils # Man Lymphocytes # (Manual) 0.3 L D-Dimer ABG pH POC ABG pCO2 POC ABG pO2 ABG pO2 ABG HCO3 ABG O2 Saturation ABG Base Excess ABG Oxyhemoglobin ABG Sodium ABG Chloride ABG Glucose Oxyhemoglobin Carboxyhemoglobin Sodium 136 L Potassium Chloride Carbon Dioxide BUN 18 H Creatinine 0.2 L Glucose 142 H POC Glucose Hemoglobin A1c Magnesium Ferritin 350.7 H AST ALT Alkaline Phosphatase Lactate Dehydrogenase 546 H C-Reactive Protein Total Protein 6.1 L Albumin 3.0 L Arterial Blood Glucose Coronavirus (PCR) 05/12/21 05/12/21 05/12/21 05:11 11:17 16:27 WBC MCV MCH MCHC RDW Lymph % (Auto) [place] % (Auto) Eos % (Auto) Lymph # (Auto) [place] # (Auto) Eos # (Auto) Baso # (Auto) Seg Neutrophils % Seg Neuts % (Manual) Lymphocytes % (Manual) Seg Neutrophils # Seg Neutrophils # Man Lymphocytes # (Manual) D-Dimer ABG pH POC ABG pCO2 POC ABG pO2 ABG pO2 ABG HCO3 ABG O2 Saturation ABG Base Excess ABG Oxyhemoglobin ABG Sodium ABG Chloride ABG Glucose Oxyhemoglobin Carboxyhemoglobin Sodium Potassium Chloride Carbon Dioxide BUN Creatinine Glucose POC Glucose 152 H 190 H 261 H Hemoglobin A1c Magnesium Ferritin AST ALT Alkaline Phosphatase Lactate Dehydrogenase C-Reactive Protein Total Protein Albumin Arterial Blood Glucose Coronavirus (PCR) 05/12/21 05/13/21 05/13/21 20:55 11:08 21:41 WBC MCV MCH MCHC RDW Lymph % (Auto) [place] % (Auto) Eos % (Auto) Lymph # (Auto) [place] # (Auto) Eos # (Auto) Baso # (Auto) Seg Neutrophils % Seg Neuts % (Manual) Lymphocytes % (Manual) Seg Neutrophils # Seg Neutrophils # Man Lymphocytes # (Manual) D-Dimer ABG pH POC ABG pCO2 POC ABG pO2 ABG pO2 ABG HCO3 ABG O2 Saturation ABG Base Excess ABG Oxyhemoglobin ABG Sodium ABG Chloride ABG Glucose Oxyhemoglobin Carboxyhemoglobin Sodium Potassium Chloride Carbon Dioxide BUN Creatinine Glucose POC Glucose 231 H 106 H 174 H Hemoglobin A1c Magnesium Ferritin AST ALT Alkaline Phosphatase Lactate Dehydrogenase C-Reactive Protein Total Protein Albumin Arterial Blood Glucose Coronavirus (PCR) 05/14/21 05/14/21 05/14/21 00:53 02:23 06:06 WBC MCV MCH MCHC RDW Lymph % (Auto) [place] % (Auto) Eos % (Auto) Lymph # (Auto) [place] # (Auto) Eos # (Auto) Baso # (Auto) Seg Neutrophils % Seg Neuts % (Manual) Lymphocytes % (Manual) Seg Neutrophils # Seg Neutrophils # Man Lymphocytes # (Manual) D-Dimer ABG pH POC ABG pCO2 POC ABG pO2 ABG pO2 130.3 H ABG HCO3 30.6 H ABG O2 Saturation ABG Base Excess 4.9 H ABG Oxyhemoglobin ABG Sodium ABG Chloride ABG Glucose Oxyhemoglobin Carboxyhemoglobin Sodium Potassium Chloride Carbon Dioxide BUN Creatinine Glucose POC Glucose 229 H 119 H Hemoglobin A1c Magnesium Ferritin AST ALT Alkaline Phosphatase Lactate Dehydrogenase C-Reactive Protein Total Protein Albumin Arterial Blood Glucose Coronavirus (PCR) 05/14/21 05/14/21 05/14/21 07:13 07:13 07:13 WBC MCV MCH MCHC RDW Lymph % (Auto) [place] % (Auto) Eos % (Auto) Lymph # (Auto) [place] # (Auto) Eos # (Auto) Baso # (Auto) Seg Neutrophils % Seg Neuts % (Manual) Lymphocytes % (Manual) Seg Neutrophils # Seg Neutrophils # Man Lymphocytes # (Manual) D-Dimer 712.80 H ABG pH POC ABG pCO2 POC ABG pO2 ABG pO2 ABG HCO3 ABG O2 Saturation ABG Base Excess ABG Oxyhemoglobin ABG Sodium ABG Chloride ABG Glucose Oxyhemoglobin Carboxyhemoglobin Sodium 133 L Potassium Chloride 95.5 L Carbon Dioxide 32 H BUN Creatinine 0.2 L Glucose 137 H POC Glucose Hemoglobin A1c Magnesium Ferritin 283.5 H AST ALT 63 H Alkaline Phosphatase Lactate Dehydrogenase 563 H C-Reactive Protein Total Protein 6.1 L Albumin 3.0 L Arterial Blood Glucose Coronavirus (PCR) 05/14/21 05/14/21 05/14/21 12:21 15:33 21:50 WBC MCV MCH MCHC RDW Lymph % (Auto) [place] % (Auto) Eos % (Auto) Lymph # (Auto) [place] # (Auto) Eos # (Auto) Baso # (Auto) Seg Neutrophils % Seg Neuts % (Manual) Lymphocytes % (Manual) Seg Neutrophils # Seg Neutrophils # Man Lymphocytes # (Manual) D-Dimer ABG pH POC ABG pCO2 POC ABG pO2 ABG pO2 ABG HCO3 ABG O2 Saturation ABG Base Excess ABG Oxyhemoglobin ABG Sodium ABG Chloride ABG Glucose Oxyhemoglobin Carboxyhemoglobin Sodium Potassium Chloride Carbon Dioxide BUN Creatinine Glucose POC Glucose 143 H 204 H 202 H Hemoglobin A1c Magnesium Ferritin AST ALT Alkaline Phosphatase Lactate Dehydrogenase C-Reactive Protein Total Protein Albumin Arterial Blood Glucose Coronavirus (PCR) 05/15/21 05/15/21 05/15/21 05:05 11:12 16:39 WBC MCV MCH MCHC RDW Lymph % (Auto) [place] % (Auto) Eos % (Auto) Lymph # (Auto) [place] # (Auto) Eos # (Auto) Baso # (Auto) Seg Neutrophils % Seg Neuts % (Manual) Lymphocytes % (Manual) Seg Neutrophils # Seg Neutrophils # Man Lymphocytes # (Manual) D-Dimer ABG pH POC ABG pCO2 POC ABG pO2 ABG pO2 ABG HCO3 ABG O2 Saturation ABG Base Excess ABG Oxyhemoglobin ABG Sodium ABG Chloride ABG Glucose Oxyhemoglobin Carboxyhemoglobin Sodium Potassium Chloride Carbon Dioxide BUN Creatinine Glucose POC Glucose 125 H 201 H 241 H Hemoglobin A1c Magnesium Ferritin AST ALT Alkaline Phosphatase Lactate Dehydrogenase C-Reactive Protein Total Protein Albumin Arterial Blood Glucose Coronavirus (PCR) 05/15/21 05/16/21 05/16/21 21:31 05:04 10:40 WBC MCV MCH MCHC RDW Lymph % (Auto) [place] % (Auto) Eos % (Auto) Lymph # (Auto) [place] # (Auto) Eos # (Auto) Baso # (Auto) Seg Neutrophils % Seg Neuts % (Manual) Lymphocytes % (Manual) Seg Neutrophils # Seg Neutrophils # Man Lymphocytes # (Manual) D-Dimer ABG pH POC ABG pCO2 POC ABG pO2 ABG pO2 ABG HCO3 ABG O2 Saturation ABG Base Excess ABG Oxyhemoglobin ABG Sodium ABG Chloride ABG Glucose Oxyhemoglobin Carboxyhemoglobin Sodium Potassium Chloride Carbon Dioxide BUN Creatinine Glucose POC Glucose 234 H 123 H 231 H Hemoglobin A1c Magnesium Ferritin AST ALT Alkaline Phosphatase Lactate Dehydrogenase C-Reactive Protein Total Protein Albumin Arterial Blood Glucose Coronavirus (PCR) 05/16/21 05/16/21 05/17/21 18:23 21:29 06:20 WBC MCV MCH MCHC RDW 18.8 H Lymph % (Auto) 10.2 L [place] % (Auto) Eos % (Auto) Lymph # (Auto) 0.8 L [place] # (Auto) Eos # (Auto) Baso # (Auto) Seg Neutrophils % 85.8 H Seg Neuts % (Manual) Lymphocytes % (Manual) Seg Neutrophils # Seg Neutrophils # Man Lymphocytes # (Manual) D-Dimer ABG pH POC ABG pCO2 POC ABG pO2 ABG pO2 ABG HCO3 ABG O2 Saturation ABG Base Excess ABG Oxyhemoglobin ABG Sodium ABG Chloride ABG Glucose Oxyhemoglobin Carboxyhemoglobin Sodium Potassium Chloride Carbon Dioxide BUN Creatinine Glucose POC Glucose 266 H 234 H Hemoglobin A1c Magnesium Ferritin AST ALT Alkaline Phosphatase Lactate Dehydrogenase C-Reactive Protein Total Protein Albumin Arterial Blood Glucose Coronavirus (PCR) 05/17/21 05/17/21 05/17/21 06:20 11:06 16:36 WBC MCV MCH MCHC RDW Lymph % (Auto) [place] % (Auto) Eos % (Auto) Lymph # (Auto) [place] # (Auto) Eos # (Auto) Baso # (Auto) Seg Neutrophils % Seg Neuts % (Manual) Lymphocytes % (Manual) Seg Neutrophils # Seg Neutrophils # Man Lymphocytes # (Manual) D-Dimer ABG pH POC ABG pCO2 POC ABG pO2 ABG pO2 ABG HCO3 ABG O2 Saturation ABG Base Excess ABG Oxyhemoglobin ABG Sodium ABG Chloride ABG Glucose Oxyhemoglobin Carboxyhemoglobin Sodium Potassium Chloride Carbon Dioxide 33 H BUN Creatinine 0.2 L Glucose 101 H POC Glucose 209 H 180 H Hemoglobin A1c Magnesium Ferritin AST ALT Alkaline Phosphatase Lactate Dehydrogenase C-Reactive Protein Total Protein Albumin Arterial Blood Glucose Coronavirus (PCR) 05/17/21 05/18/21 05/18/21 21:06 12:00 15:06 WBC MCV MCH MCHC RDW Lymph % (Auto) [place] % (Auto) Eos % (Auto) Lymph # (Auto) [place] # (Auto) Eos # (Auto) Baso # (Auto) Seg Neutrophils % Seg Neuts % (Manual) Lymphocytes % (Manual) Seg Neutrophils # Seg Neutrophils # Man Lymphocytes # (Manual) D-Dimer 874.02 H ABG pH POC ABG pCO2 POC ABG pO2 ABG pO2 ABG HCO3 ABG O2 Saturation ABG Base Excess ABG Oxyhemoglobin ABG Sodium ABG Chloride ABG Glucose Oxyhemoglobin Carboxyhemoglobin Sodium Potassium Chloride Carbon Dioxide BUN Creatinine Glucose POC Glucose 256 H 139 H Hemoglobin A1c Magnesium Ferritin AST ALT Alkaline Phosphatase Lactate Dehydrogenase C-Reactive Protein Total Protein Albumin Arterial Blood Glucose Coronavirus (PCR) 05/18/21 05/18/21 05/18/21 15:06 15:06 16:08 WBC MCV MCH MCHC RDW Lymph % (Auto) [place] % (Auto) Eos % (Auto) Lymph # (Auto) [place] # (Auto) Eos # (Auto) Baso # (Auto) Seg Neutrophils % Seg Neuts % (Manual) Lymphocytes % (Manual) Seg Neutrophils # Seg Neutrophils # Man Lymphocytes # (Manual) D-Dimer ABG pH POC ABG pCO2 POC ABG pO2 ABG pO2 ABG HCO3 ABG O2 Saturation ABG Base Excess ABG Oxyhemoglobin ABG Sodium ABG Chloride ABG Glucose Oxyhemoglobin Carboxyhemoglobin Sodium Potassium Chloride Carbon Dioxide BUN Creatinine Glucose POC Glucose 178 H Hemoglobin A1c Magnesium Ferritin 289.6 H AST ALT Alkaline Phosphatase Lactate Dehydrogenase 605 H C-Reactive Protein Total Protein Albumin Arterial Blood Glucose Coronavirus (PCR) 05/18/21 05/19/21 05/19/21 21:22 11:57 15:26 WBC MCV MCH MCHC RDW Lymph % (Auto) [place] % (Auto) Eos % (Auto) Lymph # (Auto) [place] # (Auto) Eos # (Auto) Baso # (Auto) Seg Neutrophils % Seg Neuts % (Manual) Lymphocytes % (Manual) Seg Neutrophils # Seg Neutrophils # Man Lymphocytes # (Manual) D-Dimer ABG pH POC ABG pCO2 POC ABG pO2 ABG pO2 ABG HCO3 ABG O2 Saturation ABG Base Excess ABG Oxyhemoglobin ABG Sodium ABG Chloride ABG Glucose Oxyhemoglobin Carboxyhemoglobin Sodium Potassium Chloride Carbon Dioxide BUN Creatinine Glucose POC Glucose 241 H 201 H 209 H Hemoglobin A1c Magnesium Ferritin AST ALT Alkaline Phosphatase Lactate Dehydrogenase C-Reactive Protein Total Protein Albumin Arterial Blood Glucose Coronavirus (PCR) 05/19/21 05/20/21 05/20/21 20:59 07:38 08:01 WBC MCV MCH MCHC RDW 19.7 H Lymph % (Auto) 8.3 L [place] % (Auto) Eos % (Auto) Lymph # (Auto) 0.8 L [place] # (Auto) Eos # (Auto) Baso # (Auto) Seg Neutrophils % 88.6 H Seg Neuts % (Manual) Lymphocytes % (Manual) Seg Neutrophils # 8.4 H Seg Neutrophils # Man Lymphocytes # (Manual) D-Dimer ABG pH POC ABG pCO2 POC ABG pO2 ABG pO2 ABG HCO3 ABG O2 Saturation ABG Base Excess ABG Oxyhemoglobin ABG Sodium ABG Chloride ABG Glucose Oxyhemoglobin Carboxyhemoglobin Sodium Potassium Chloride Carbon Dioxide BUN Creatinine Glucose POC Glucose 226 H 130 H Hemoglobin A1c Magnesium Ferritin AST ALT Alkaline Phosphatase Lactate Dehydrogenase C-Reactive Protein Total Protein Albumin Arterial Blood Glucose Coronavirus (PCR) 05/20/21 05/20/21 05/20/21 08:01 11:00 16:43 WBC MCV MCH MCHC RDW Lymph % (Auto) [place] % (Auto) Eos % (Auto) Lymph # (Auto) [place] # (Auto) Eos # (Auto) Baso # (Auto) Seg Neutrophils % Seg Neuts % (Manual) Lymphocytes % (Manual) Seg Neutrophils # Seg Neutrophils # Man Lymphocytes # (Manual) D-Dimer ABG pH POC ABG pCO2 POC ABG pO2 ABG pO2 ABG HCO3 ABG O2 Saturation ABG Base Excess ABG Oxyhemoglobin ABG Sodium ABG Chloride ABG Glucose Oxyhemoglobin Carboxyhemoglobin Sodium Potassium Chloride Carbon Dioxide BUN 18 H Creatinine 0.2 L Glucose 132 H POC Glucose 237 H 240 H Hemoglobin A1c Magnesium Ferritin AST ALT Alkaline Phosphatase Lactate Dehydrogenase C-Reactive Protein Total Protein Albumin Arterial Blood Glucose Coronavirus (PCR) 05/20/21 05/21/21 05/21/21 21:21 07:35 11:32 WBC MCV MCH MCHC RDW Lymph % (Auto) [place] % (Auto) Eos % (Auto) Lymph # (Auto) [place] # (Auto) Eos # (Auto) Baso # (Auto) Seg Neutrophils % Seg Neuts % (Manual) Lymphocytes % (Manual) Seg Neutrophils # Seg Neutrophils # Man Lymphocytes # (Manual) D-Dimer ABG pH POC ABG pCO2 POC ABG pO2 ABG pO2 ABG HCO3 ABG O2 Saturation ABG Base Excess ABG Oxyhemoglobin ABG Sodium ABG Chloride ABG Glucose Oxyhemoglobin Carboxyhemoglobin Sodium Potassium Chloride Carbon Dioxide BUN Creatinine Glucose POC Glucose 241 H 162 H 171 H Hemoglobin A1c Magnesium Ferritin AST ALT Alkaline Phosphatase Lactate Dehydrogenase C-Reactive Protein Total Protein Albumin Arterial Blood Glucose Coronavirus (PCR) 05/21/21 05/21/21 05/22/21 16:22 20:43 05:14 WBC MCV MCH MCHC RDW Lymph % (Auto) [place] % (Auto) Eos % (Auto) Lymph # (Auto) [place] # (Auto) Eos # (Auto) Baso # (Auto) Seg Neutrophils % Seg Neuts % (Manual) Lymphocytes % (Manual) Seg Neutrophils # Seg Neutrophils # Man Lymphocytes # (Manual) D-Dimer ABG pH POC ABG pCO2 POC ABG pO2 ABG pO2 ABG HCO3 ABG O2 Saturation ABG Base Excess ABG Oxyhemoglobin ABG Sodium ABG Chloride ABG Glucose Oxyhemoglobin Carboxyhemoglobin Sodium Potassium Chloride Carbon Dioxide BUN Creatinine Glucose POC Glucose 244 H 299 H 140 H Hemoglobin A1c Magnesium Ferritin AST ALT Alkaline Phosphatase Lactate Dehydrogenase C-Reactive Protein Total Protein Albumin Arterial Blood Glucose Coronavirus (PCR) 05/22/21 05/22/21 05/22/21 08:45 11:54 16:15 WBC MCV MCH MCHC RDW Lymph % (Auto) [place] % (Auto) Eos % (Auto) Lymph # (Auto) [place] # (Auto) Eos # (Auto) Baso # (Auto) Seg Neutrophils % Seg Neuts % (Manual) Lymphocytes % (Manual) Seg Neutrophils # Seg Neutrophils # Man Lymphocytes # (Manual) D-Dimer ABG pH POC ABG pCO2 POC ABG pO2 ABG pO2 ABG HCO3 ABG O2 Saturation ABG Base Excess ABG Oxyhemoglobin ABG Sodium ABG Chloride ABG Glucose Oxyhemoglobin Carboxyhemoglobin Sodium Potassium Chloride Carbon Dioxide BUN Creatinine Glucose POC Glucose 133 H 265 H 221 H Hemoglobin A1c Magnesium Ferritin AST ALT Alkaline Phosphatase Lactate Dehydrogenase C-Reactive Protein Total Protein Albumin Arterial Blood Glucose Coronavirus (PCR) 05/22/21 05/23/21 05/23/21 21:43 08:20 09:50 WBC MCV MCH MCHC RDW Lymph % (Auto) [place] % (Auto) Eos % (Auto) Lymph # (Auto) [place] # (Auto) Eos # (Auto) Baso # (Auto) Seg Neutrophils % Seg Neuts % (Manual) Lymphocytes % (Manual) Seg Neutrophils # Seg Neutrophils # Man Lymphocytes # (Manual) D-Dimer 910.38 H ABG pH POC ABG pCO2 POC ABG pO2 ABG pO2 ABG HCO3 ABG O2 Saturation ABG Base Excess ABG Oxyhemoglobin ABG Sodium ABG Chloride ABG Glucose Oxyhemoglobin Carboxyhemoglobin Sodium Potassium Chloride Carbon Dioxide BUN Creatinine Glucose POC Glucose 262 H 140 H Hemoglobin A1c Magnesium Ferritin AST ALT Alkaline Phosphatase Lactate Dehydrogenase C-Reactive Protein Total Protein Albumin Arterial Blood Glucose Coronavirus (PCR) 05/23/21 05/23/21 05/23/21 09:50 09:50 10:52 WBC MCV MCH MCHC RDW Lymph % (Auto) [place] % (Auto) Eos % (Auto) Lymph # (Auto) [place] # (Auto) Eos # (Auto) Baso # (Auto) Seg Neutrophils % Seg Neuts % (Manual) Lymphocytes % (Manual) Seg Neutrophils # Seg Neutrophils # Man Lymphocytes # (Manual) D-Dimer ABG pH POC ABG pCO2 POC ABG pO2 ABG pO2 ABG HCO3 ABG O2 Saturation ABG Base Excess ABG Oxyhemoglobin ABG Sodium ABG Chloride ABG Glucose Oxyhemoglobin Carboxyhemoglobin Sodium Potassium Chloride Carbon Dioxide BUN Creatinine Glucose POC Glucose 241 H Hemoglobin A1c Magnesium Ferritin 244.9 H AST ALT Alkaline Phosphatase Lactate Dehydrogenase 584 H C-Reactive Protein Total Protein Albumin Arterial Blood Glucose Coronavirus (PCR) 05/23/21 05/23/21 05/24/21 17:24 21:52 07:44 WBC MCV MCH MCHC RDW Lymph % (Auto) [place] % (Auto) Eos % (Auto) Lymph # (Auto) [place] # (Auto) Eos # (Auto) Baso # (Auto) Seg Neutrophils % Seg Neuts % (Manual) Lymphocytes % (Manual) Seg Neutrophils # Seg Neutrophils # Man Lymphocytes # (Manual) D-Dimer ABG pH POC ABG pCO2 POC ABG pO2 ABG pO2 ABG HCO3 ABG O2 Saturation ABG Base Excess ABG Oxyhemoglobin ABG Sodium ABG Chloride ABG Glucose Oxyhemoglobin Carboxyhemoglobin Sodium Potassium Chloride Carbon Dioxide BUN Creatinine Glucose POC Glucose 197 H 289 H 161 H Hemoglobin A1c Magnesium Ferritin AST ALT Alkaline Phosphatase Lactate Dehydrogenase C-Reactive Protein Total Protein Albumin Arterial Blood Glucose Coronavirus (PCR) 05/24/21 05/24/21 05/24/21 11:17 17:51 21:26 WBC MCV MCH MCHC RDW Lymph % (Auto) [place] % (Auto) Eos % (Auto) Lymph # (Auto) [place] # (Auto) Eos # (Auto) Baso # (Auto) Seg Neutrophils % Seg Neuts % (Manual) Lymphocytes % (Manual) Seg Neutrophils # Seg Neutrophils # Man Lymphocytes # (Manual) D-Dimer ABG pH POC ABG pCO2 POC ABG pO2 ABG pO2 ABG HCO3 ABG O2 Saturation ABG Base Excess ABG Oxyhemoglobin ABG Sodium ABG Chloride ABG Glucose Oxyhemoglobin Carboxyhemoglobin Sodium Potassium Chloride Carbon Dioxide BUN Creatinine Glucose POC Glucose 308 H 175 H 198 H Hemoglobin A1c Magnesium Ferritin AST ALT Alkaline Phosphatase Lactate Dehydrogenase C-Reactive Protein Total Protein Albumin Arterial Blood Glucose Coronavirus (PCR) 05/25/21 05/25/21 05/25/21 08:14 11:13 17:13 WBC MCV MCH MCHC RDW Lymph % (Auto) [place] % (Auto) Eos % (Auto) Lymph # (Auto) [place] # (Auto) Eos # (Auto) Baso # (Auto) Seg Neutrophils % Seg Neuts % (Manual) Lymphocytes % (Manual) Seg Neutrophils # Seg Neutrophils # Man Lymphocytes # (Manual) D-Dimer ABG pH POC ABG pCO2 POC ABG pO2 ABG pO2 ABG HCO3 ABG O2 Saturation ABG Base Excess ABG Oxyhemoglobin ABG Sodium ABG Chloride ABG Glucose Oxyhemoglobin Carboxyhemoglobin Sodium Potassium Chloride Carbon Dioxide BUN Creatinine Glucose POC Glucose 203 H 339 H 235 H Hemoglobin A1c Magnesium Ferritin AST ALT Alkaline Phosphatase Lactate Dehydrogenase C-Reactive Protein Total Protein Albumin Arterial Blood Glucose Coronavirus (PCR) 05/25/21 05/26/21 05/26/21 21:03 07:33 11:19 WBC MCV MCH MCHC RDW Lymph % (Auto) [place] % (Auto) Eos % (Auto) Lymph # (Auto) [place] # (Auto) Eos # (Auto) Baso # (Auto) Seg Neutrophils % Seg Neuts % (Manual) Lymphocytes % (Manual) Seg Neutrophils # Seg Neutrophils # Man Lymphocytes # (Manual) D-Dimer ABG pH POC ABG pCO2 POC ABG pO2 ABG pO2 ABG HCO3 ABG O2 Saturation ABG Base Excess ABG Oxyhemoglobin ABG Sodium ABG Chloride ABG Glucose Oxyhemoglobin Carboxyhemoglobin Sodium Potassium Chloride Carbon Dioxide BUN Creatinine Glucose POC Glucose 263 H 156 H 288 H Hemoglobin A1c Magnesium Ferritin AST ALT Alkaline Phosphatase Lactate Dehydrogenase C-Reactive Protein Total Protein Albumin Arterial Blood Glucose Coronavirus (PCR) 05/26/21 05/26/21 05/27/21 16:26 20:55 07:38 WBC MCV MCH MCHC RDW Lymph % (Auto) [place] % (Auto) Eos % (Auto) Lymph # (Auto) [place] # (Auto) Eos # (Auto) Baso # (Auto) Seg Neutrophils % Seg Neuts % (Manual) Lymphocytes % (Manual) Seg Neutrophils # Seg Neutrophils # Man Lymphocytes # (Manual) D-Dimer ABG pH POC ABG pCO2 POC ABG pO2 ABG pO2 ABG HCO3 ABG O2 Saturation ABG Base Excess ABG Oxyhemoglobin ABG Sodium ABG Chloride ABG Glucose Oxyhemoglobin Carboxyhemoglobin Sodium Potassium Chloride Carbon Dioxide BUN Creatinine Glucose POC Glucose 286 H 293 H 115 H Hemoglobin A1c Magnesium Ferritin AST ALT Alkaline Phosphatase Lactate Dehydrogenase C-Reactive Protein Total Protein Albumin Arterial Blood Glucose Coronavirus (PCR) 05/27/21 05/27/21 05/27/21 11:46 15:58 21:02 WBC MCV MCH MCHC RDW Lymph % (Auto) [place] % (Auto) Eos % (Auto) Lymph # (Auto) [place] # (Auto) Eos # (Auto) Baso # (Auto) Seg Neutrophils % Seg Neuts % (Manual) Lymphocytes % (Manual) Seg Neutrophils # Seg Neutrophils # Man Lymphocytes # (Manual) D-Dimer ABG pH POC ABG pCO2 POC ABG pO2 ABG pO2 ABG HCO3 ABG O2 Saturation ABG Base Excess ABG Oxyhemoglobin ABG Sodium ABG Chloride ABG Glucose Oxyhemoglobin Carboxyhemoglobin Sodium Potassium Chloride Carbon Dioxide BUN Creatinine Glucose POC Glucose 260 H 318 H 246 H Hemoglobin A1c Magnesium Ferritin AST ALT Alkaline Phosphatase Lactate Dehydrogenase C-Reactive Protein Total Protein Albumin Arterial Blood Glucose Coronavirus (PCR) 05/28/21 05/28/21 05/28/21 07:34 11:31 16:36 WBC MCV MCH MCHC RDW Lymph % (Auto) [place] % (Auto) Eos % (Auto) Lymph # (Auto) [place] # (Auto) Eos # (Auto) Baso # (Auto) Seg Neutrophils % Seg Neuts % (Manual) Lymphocytes % (Manual) Seg Neutrophils # Seg Neutrophils # Man Lymphocytes # (Manual) D-Dimer ABG pH POC ABG pCO2 POC ABG pO2 ABG pO2 ABG HCO3 ABG O2 Saturation ABG Base Excess ABG Oxyhemoglobin ABG Sodium ABG Chloride ABG Glucose Oxyhemoglobin Carboxyhemoglobin Sodium Potassium Chloride Carbon Dioxide BUN Creatinine Glucose POC Glucose 185 H 297 H 183 H Hemoglobin A1c Magnesium Ferritin AST ALT Alkaline Phosphatase Lactate Dehydrogenase C-Reactive Protein Total Protein Albumin Arterial Blood Glucose Coronavirus (PCR) 05/28/21 05/29/21 05/29/21 21:19 07:34 11:19 WBC MCV MCH MCHC RDW Lymph % (Auto) [place] % (Auto) Eos % (Auto) Lymph # (Auto) [place] # (Auto) Eos # (Auto) Baso # (Auto) Seg Neutrophils % Seg Neuts % (Manual) Lymphocytes % (Manual) Seg Neutrophils # Seg Neutrophils # Man Lymphocytes # (Manual) D-Dimer ABG pH POC ABG pCO2 POC ABG pO2 ABG pO2 ABG HCO3 ABG O2 Saturation ABG Base Excess ABG Oxyhemoglobin ABG Sodium ABG Chloride ABG Glucose Oxyhemoglobin Carboxyhemoglobin Sodium Potassium Chloride Carbon Dioxide BUN Creatinine Glucose POC Glucose 274 H 139 H 293 H Hemoglobin A1c Magnesium Ferritin AST ALT Alkaline Phosphatase Lactate Dehydrogenase C-Reactive Protein Total Protein Albumin Arterial Blood Glucose Coronavirus (PCR) 05/29/21 05/29/21 05/30/21 16:36 22:44 05:55 WBC MCV MCH MCHC RDW 21.3 H Lymph % (Auto) 8.0 L [place] % (Auto) Eos % (Auto) Lymph # (Auto) 0.6 L [place] # (Auto) Eos # (Auto) Baso # (Auto) Seg Neutrophils % 88.6 H Seg Neuts % (Manual) Lymphocytes % (Manual) Seg Neutrophils # Seg Neutrophils # Man Lymphocytes # (Manual) D-Dimer ABG pH POC ABG pCO2 POC ABG pO2 ABG pO2 ABG HCO3 ABG O2 Saturation ABG Base Excess ABG Oxyhemoglobin ABG Sodium ABG Chloride ABG Glucose Oxyhemoglobin Carboxyhemoglobin Sodium Potassium Chloride Carbon Dioxide BUN Creatinine Glucose POC Glucose 299 H 160 H Hemoglobin A1c Magnesium Ferritin AST ALT Alkaline Phosphatase Lactate Dehydrogenase C-Reactive Protein Total Protein Albumin Arterial Blood Glucose Coronavirus (PCR) 05/30/21 05/30/21 05/30/21 05:55 08:04 11:13 WBC MCV MCH MCHC RDW Lymph % (Auto) [place] % (Auto) Eos % (Auto) Lymph # (Auto) [place] # (Auto) Eos # (Auto) Baso # (Auto) Seg Neutrophils % Seg Neuts % (Manual) Lymphocytes % (Manual) Seg Neutrophils # Seg Neutrophils # Man Lymphocytes # (Manual) D-Dimer ABG pH POC ABG pCO2 POC ABG pO2 ABG pO2 ABG HCO3 ABG O2 Saturation ABG Base Excess ABG Oxyhemoglobin ABG Sodium ABG Chloride ABG Glucose Oxyhemoglobin Carboxyhemoglobin Sodium Potassium Chloride Carbon Dioxide BUN 19 H Creatinine 0.2 L Glucose 209 H POC Glucose 157 H 275 H Hemoglobin A1c Magnesium Ferritin AST ALT Alkaline Phosphatase Lactate Dehydrogenase C-Reactive Protein Total Protein Albumin Arterial Blood Glucose Coronavirus (PCR) 05/30/21 05/30/21 05/31/21 17:08 22:12 07:36 WBC MCV MCH MCHC RDW Lymph % (Auto) [place] % (Auto) Eos % (Auto) Lymph # (Auto) [place] # (Auto) Eos # (Auto) Baso # (Auto) Seg Neutrophils % Seg Neuts % (Manual) Lymphocytes % (Manual) Seg Neutrophils # Seg Neutrophils # Man Lymphocytes # (Manual) D-Dimer ABG pH POC ABG pCO2 POC ABG pO2 ABG pO2 ABG HCO3 ABG O2 Saturation ABG Base Excess ABG Oxyhemoglobin ABG Sodium ABG Chloride ABG Glucose Oxyhemoglobin Carboxyhemoglobin Sodium Potassium Chloride Carbon Dioxide BUN Creatinine Glucose POC Glucose 154 H 275 H 138 H Hemoglobin A1c Magnesium Ferritin AST ALT Alkaline Phosphatase Lactate Dehydrogenase C-Reactive Protein Total Protein Albumin Arterial Blood Glucose Coronavirus (PCR) 05/31/21 05/31/21 05/31/21 11:17 16:55 21:25 WBC MCV MCH MCHC RDW Lymph % (Auto) [place] % (Auto) Eos % (Auto) Lymph # (Auto) [place] # (Auto) Eos # (Auto) Baso # (Auto) Seg Neutrophils % Seg Neuts % (Manual) Lymphocytes % (Manual) Seg Neutrophils # Seg Neutrophils # Man Lymphocytes # (Manual) D-Dimer ABG pH POC ABG pCO2 POC ABG pO2 ABG pO2 ABG HCO3 ABG O2 Saturation ABG Base Excess ABG Oxyhemoglobin ABG Sodium ABG Chloride ABG Glucose Oxyhemoglobin Carboxyhemoglobin Sodium Potassium Chloride Carbon Dioxide BUN Creatinine Glucose POC Glucose 258 H 215 H 318 H Hemoglobin A1c Magnesium Ferritin AST ALT Alkaline Phosphatase Lactate Dehydrogenase C-Reactive Protein Total Protein Albumin Arterial Blood Glucose Coronavirus (PCR) 06/01/21 06/01/21 06/01/21 07:23 11:38 16:52 WBC MCV MCH MCHC RDW Lymph % (Auto) [place] % (Auto) Eos % (Auto) Lymph # (Auto) [place] # (Auto) Eos # (Auto) Baso # (Auto) Seg Neutrophils % Seg Neuts % (Manual) Lymphocytes % (Manual) Seg Neutrophils # Seg Neutrophils # Man Lymphocytes # (Manual) D-Dimer ABG pH POC ABG pCO2 POC ABG pO2 ABG pO2 ABG HCO3 ABG O2 Saturation ABG Base Excess ABG Oxyhemoglobin ABG Sodium ABG Chloride ABG Glucose Oxyhemoglobin Carboxyhemoglobin Sodium Potassium Chloride Carbon Dioxide BUN Creatinine Glucose POC Glucose 157 H 259 H 150 H Hemoglobin A1c Magnesium Ferritin AST ALT Alkaline Phosphatase Lactate Dehydrogenase C-Reactive Protein Total Protein Albumin Arterial Blood Glucose Coronavirus (PCR) 06/01/21 06/02/21 06/02/21 23:16 05:34 05:34 WBC MCV MCH MCHC RDW 21.3 H Lymph % (Auto) 9.6 L [place] % (Auto) Eos % (Auto) Lymph # (Auto) 0.6 L [place] # (Auto) Eos # (Auto) Baso # (Auto) Seg Neutrophils % 86.2 H Seg Neuts % (Manual) Lymphocytes % (Manual) Seg Neutrophils # Seg Neutrophils # Man Lymphocytes # (Manual) D-Dimer ABG pH POC ABG pCO2 POC ABG pO2 ABG pO2 ABG HCO3 ABG O2 Saturation ABG Base Excess ABG Oxyhemoglobin ABG Sodium ABG Chloride ABG Glucose Oxyhemoglobin Carboxyhemoglobin Sodium 136 L Potassium Chloride Carbon Dioxide BUN Creatinine 0.2 L Glucose 186 H POC Glucose 247 H Hemoglobin A1c Magnesium Ferritin AST ALT 69 H Alkaline Phosphatase Lactate Dehydrogenase C-Reactive Protein Total Protein 6.1 L Albumin 3.2 L Arterial Blood Glucose Coronavirus (PCR) 06/02/21 06/02/21 06/02/21 11:25 18:23 21:32 WBC MCV MCH MCHC RDW Lymph % (Auto) [place] % (Auto) Eos % (Auto) Lymph # (Auto) [place] # (Auto) Eos # (Auto) Baso # (Auto) Seg Neutrophils % Seg Neuts % (Manual) Lymphocytes % (Manual) Seg Neutrophils # Seg Neutrophils # Man Lymphocytes # (Manual) D-Dimer ABG pH POC ABG pCO2 POC ABG pO2 ABG pO2 ABG HCO3 ABG O2 Saturation ABG Base Excess ABG Oxyhemoglobin ABG Sodium ABG Chloride ABG Glucose Oxyhemoglobin Carboxyhemoglobin Sodium Potassium Chloride Carbon Dioxide BUN Creatinine Glucose POC Glucose 157 H 299 H 246 H Hemoglobin A1c Magnesium Ferritin AST ALT Alkaline Phosphatase Lactate Dehydrogenase C-Reactive Protein Total Protein Albumin Arterial Blood Glucose Coronavirus (PCR) 06/03/21 06/03/21 06/03/21 08:12 12:21 17:31 WBC MCV MCH MCHC RDW Lymph % (Auto) [place] % (Auto) Eos % (Auto) Lymph # (Auto) [place] # (Auto) Eos # (Auto) Baso # (Auto) Seg Neutrophils % Seg Neuts % (Manual) Lymphocytes % (Manual) Seg Neutrophils # Seg Neutrophils # Man Lymphocytes # (Manual) D-Dimer ABG pH POC ABG pCO2 POC ABG pO2 ABG pO2 ABG HCO3 ABG O2 Saturation ABG Base Excess ABG Oxyhemoglobin ABG Sodium ABG Chloride ABG Glucose Oxyhemoglobin Carboxyhemoglobin Sodium Potassium Chloride Carbon Dioxide BUN Creatinine Glucose POC Glucose 153 H 302 H 252 H Hemoglobin A1c Magnesium Ferritin AST ALT Alkaline Phosphatase Lactate Dehydrogenase C-Reactive Protein Total Protein Albumin Arterial Blood Glucose Coronavirus (PCR) 06/03/21 06/04/21 06/04/21 22:08 11:12 16:01 WBC MCV MCH MCHC RDW Lymph % (Auto) [place] % (Auto) Eos % (Auto) Lymph # (Auto) [place] # (Auto) Eos # (Auto) Baso # (Auto) Seg Neutrophils % Seg Neuts % (Manual) Lymphocytes % (Manual) Seg Neutrophils # Seg Neutrophils # Man Lymphocytes # (Manual) D-Dimer ABG pH POC ABG pCO2 POC ABG pO2 ABG pO2 ABG HCO3 ABG O2 Saturation ABG Base Excess ABG Oxyhemoglobin ABG Sodium ABG Chloride ABG Glucose Oxyhemoglobin Carboxyhemoglobin Sodium Potassium Chloride Carbon Dioxide BUN Creatinine Glucose POC Glucose 224 H 259 H 238 H Hemoglobin A1c Magnesium Ferritin AST ALT Alkaline Phosphatase Lactate Dehydrogenase C-Reactive Protein Total Protein Albumin Arterial Blood Glucose Coronavirus (PCR) 06/04/21 06/05/21 06/05/21 21:26 05:26 05:26 WBC MCV MCH MCHC RDW Lymph % (Auto) [place] % (Auto) Eos % (Auto) Lymph # (Auto) [place] # (Auto) Eos # (Auto) Baso # (Auto) Seg Neutrophils % Seg Neuts % (Manual) Lymphocytes % (Manual) Seg Neutrophils # Seg Neutrophils # Man Lymphocytes # (Manual) D-Dimer 488.49 H ABG pH POC ABG pCO2 POC ABG pO2 ABG pO2 ABG HCO3 ABG O2 Saturation ABG Base Excess ABG Oxyhemoglobin ABG Sodium ABG Chloride ABG Glucose Oxyhemoglobin Carboxyhemoglobin Sodium Potassium Chloride Carbon Dioxide BUN Creatinine 0.2 L Glucose 198 H POC Glucose 257 H Hemoglobin A1c Magnesium Ferritin AST ALT Alkaline Phosphatase Lactate Dehydrogenase 475 H C-Reactive Protein Total Protein Albumin Arterial Blood Glucose Coronavirus (PCR) 06/05/21 06/05/21 06/05/21 07:20 08:30 11:00 WBC MCV MCH MCHC RDW Lymph % (Auto) [place] % (Auto) Eos % (Auto) Lymph # (Auto) [place] # (Auto) Eos # (Auto) Baso # (Auto) Seg Neutrophils % Seg Neuts % (Manual) Lymphocytes % (Manual) Seg Neutrophils # Seg Neutrophils # Man Lymphocytes # (Manual) D-Dimer ABG pH POC ABG pCO2 POC ABG pO2 ABG pO2 ABG HCO3 ABG O2 Saturation ABG Base Excess ABG Oxyhemoglobin ABG Sodium ABG Chloride ABG Glucose Oxyhemoglobin Carboxyhemoglobin Sodium Potassium Chloride Carbon Dioxide BUN Creatinine Glucose POC Glucose 146 H 246 H Hemoglobin A1c Magnesium Ferritin AST ALT Alkaline Phosphatase Lactate Dehydrogenase C-Reactive Protein Total Protein Albumin Arterial Blood Glucose Coronavirus (PCR) Positive A 06/05/21 06/05/21 06/06/21 16:50 22:30 07:57 WBC MCV MCH MCHC RDW Lymph % (Auto) [place] % (Auto) Eos % (Auto) Lymph # (Auto) [place] # (Auto) Eos # (Auto) Baso # (Auto) Seg Neutrophils % Seg Neuts % (Manual) Lymphocytes % (Manual) Seg Neutrophils # Seg Neutrophils # Man Lymphocytes # (Manual) D-Dimer ABG pH POC ABG pCO2 POC ABG pO2 ABG pO2 ABG HCO3 ABG O2 Saturation ABG Base Excess ABG Oxyhemoglobin ABG Sodium ABG Chloride ABG Glucose Oxyhemoglobin Carboxyhemoglobin Sodium Potassium Chloride Carbon Dioxide BUN Creatinine Glucose POC Glucose 240 H 174 H 120 H Hemoglobin A1c Magnesium Ferritin AST ALT Alkaline Phosphatase Lactate Dehydrogenase C-Reactive Protein Total Protein Albumin Arterial Blood Glucose Coronavirus (PCR) 06/06/21 06/06/21 06/06/21 11:14 16:50 21:11 WBC MCV MCH MCHC RDW Lymph % (Auto) [place] % (Auto) Eos % (Auto) Lymph # (Auto) [place] # (Auto) Eos # (Auto) Baso # (Auto) Seg Neutrophils % Seg Neuts % (Manual) Lymphocytes % (Manual) Seg Neutrophils # Seg Neutrophils # Man Lymphocytes # (Manual) D-Dimer ABG pH POC ABG pCO2 POC ABG pO2 ABG pO2 ABG HCO3 ABG O2 Saturation ABG Base Excess ABG Oxyhemoglobin ABG Sodium ABG Chloride ABG Glucose Oxyhemoglobin Carboxyhemoglobin Sodium Potassium Chloride Carbon Dioxide BUN Creatinine Glucose POC Glucose 267 H 218 H 124 H Hemoglobin A1c Magnesium Ferritin AST ALT Alkaline Phosphatase Lactate Dehydrogenase C-Reactive Protein Total Protein Albumin Arterial Blood Glucose Coronavirus (PCR) 06/07/21 06/07/21 06/08/21 11:58 15:59 07:59 WBC MCV MCH MCHC RDW Lymph % (Auto) [place] % (Auto) Eos % (Auto) Lymph # (Auto) [place] # (Auto) Eos # (Auto) Baso # (Auto) Seg Neutrophils % Seg Neuts % (Manual) Lymphocytes % (Manual) Seg Neutrophils # Seg Neutrophils # Man Lymphocytes # (Manual) D-Dimer ABG pH POC ABG pCO2 POC ABG pO2 ABG pO2 ABG HCO3 ABG O2 Saturation ABG Base Excess ABG Oxyhemoglobin ABG Sodium ABG Chloride ABG Glucose Oxyhemoglobin Carboxyhemoglobin Sodium Potassium Chloride Carbon Dioxide BUN Creatinine Glucose POC Glucose 219 H 208 H 192 H Hemoglobin A1c Magnesium Ferritin AST ALT Alkaline Phosphatase Lactate Dehydrogenase C-Reactive Protein Total Protein Albumin Arterial Blood Glucose Coronavirus (PCR) 06/08/21 06/08/21 06/09/21 11:26 23:28 07:33 WBC MCV MCH MCHC RDW Lymph % (Auto) [place] % (Auto) Eos % (Auto) Lymph # (Auto) [place] # (Auto) Eos # (Auto) Baso # (Auto) Seg Neutrophils % Seg Neuts % (Manual) Lymphocytes % (Manual) Seg Neutrophils # Seg Neutrophils # Man Lymphocytes # (Manual) D-Dimer ABG pH POC ABG pCO2 POC ABG pO2 ABG pO2 ABG HCO3 ABG O2 Saturation ABG Base Excess ABG Oxyhemoglobin ABG Sodium ABG Chloride ABG Glucose Oxyhemoglobin Carboxyhemoglobin Sodium Potassium Chloride Carbon Dioxide BUN Creatinine Glucose POC Glucose 307 H 138 H 145 H Hemoglobin A1c Magnesium Ferritin AST ALT Alkaline Phosphatase Lactate Dehydrogenase C-Reactive Protein Total Protein Albumin Arterial Blood Glucose Coronavirus (PCR) 06/09/21 06/09/21 06/09/21 11:01 15:47 21:43 WBC MCV MCH MCHC RDW Lymph % (Auto) [place] % (Auto) Eos % (Auto) Lymph # (Auto) [place] # (Auto) Eos # (Auto) Baso # (Auto) Seg Neutrophils % Seg Neuts % (Manual) Lymphocytes % (Manual) Seg Neutrophils # Seg Neutrophils # Man Lymphocytes # (Manual) D-Dimer ABG pH POC ABG pCO2 POC ABG pO2 ABG pO2 ABG HCO3 ABG O2 Saturation ABG Base Excess ABG Oxyhemoglobin ABG Sodium ABG Chloride ABG Glucose Oxyhemoglobin Carboxyhemoglobin Sodium Potassium Chloride Carbon Dioxide BUN Creatinine Glucose POC Glucose 266 H 305 H 223 H Hemoglobin A1c Magnesium Ferritin AST ALT Alkaline Phosphatase Lactate Dehydrogenase C-Reactive Protein Total Protein Albumin Arterial Blood Glucose Coronavirus (PCR) 06/10/21 06/10/21 06/10/21 08:27 12:10 17:45 WBC MCV MCH MCHC RDW Lymph % (Auto) [place] % (Auto) Eos % (Auto) Lymph # (Auto) [place] # (Auto) Eos # (Auto) Baso # (Auto) Seg Neutrophils % Seg Neuts % (Manual) Lymphocytes % (Manual) Seg Neutrophils # Seg Neutrophils # Man Lymphocytes # (Manual) D-Dimer ABG pH POC ABG pCO2 POC ABG pO2 ABG pO2 ABG HCO3 ABG O2 Saturation ABG Base Excess ABG Oxyhemoglobin ABG Sodium ABG Chloride ABG Glucose Oxyhemoglobin Carboxyhemoglobin Sodium Potassium Chloride Carbon Dioxide BUN Creatinine Glucose POC Glucose 174 H 306 H 210 H Hemoglobin A1c Magnesium Ferritin AST ALT Alkaline Phosphatase Lactate Dehydrogenase C-Reactive Protein Total Protein Albumin Arterial Blood Glucose Coronavirus (PCR) 06/10/21 06/11/21 06/11/21 21:45 09:38 09:38 WBC MCV MCH MCHC RDW 20.9 H Lymph % (Auto) [place] % (Auto) Eos % (Auto) Lymph # (Auto) [place] # (Auto) Eos # (Auto) Baso # (Auto) Seg Neutrophils % Seg Neuts % (Manual) Lymphocytes % (Manual) Seg Neutrophils # Seg Neutrophils # Man Lymphocytes # (Manual) D-Dimer ABG pH POC ABG pCO2 POC ABG pO2 ABG pO2 ABG HCO3 ABG O2 Saturation ABG Base Excess ABG Oxyhemoglobin ABG Sodium ABG Chloride ABG Glucose Oxyhemoglobin Carboxyhemoglobin Sodium 135 L Potassium Chloride 90.8 L Carbon Dioxide 36 H BUN 29 H Creatinine 0.2 L Glucose 258 H POC Glucose 262 H Hemoglobin A1c Magnesium Ferritin AST ALT Alkaline Phosphatase Lactate Dehydrogenase C-Reactive Protein Total Protein Albumin Arterial Blood Glucose Coronavirus (PCR) 06/11/21 06/11/21 06/11/21 11:20 15:49 22:57 WBC MCV MCH MCHC RDW Lymph % (Auto) [place] % (Auto) Eos % (Auto) Lymph # (Auto) [place] # (Auto) Eos # (Auto) Baso # (Auto) Seg Neutrophils % Seg Neuts % (Manual) Lymphocytes % (Manual) Seg Neutrophils # Seg Neutrophils # Man Lymphocytes # (Manual) D-Dimer ABG pH POC ABG pCO2 POC ABG pO2 ABG pO2 ABG HCO3 ABG O2 Saturation ABG Base Excess ABG Oxyhemoglobin ABG Sodium ABG Chloride ABG Glucose Oxyhemoglobin Carboxyhemoglobin Sodium Potassium Chloride Carbon Dioxide BUN Creatinine Glucose POC Glucose 269 H 206 H 211 H Hemoglobin A1c Magnesium Ferritin AST ALT Alkaline Phosphatase Lactate Dehydrogenase C-Reactive Protein Total Protein Albumin Arterial Blood Glucose Coronavirus (PCR) 06/12/21 06/12/21 06/12/21 08:07 11:24 18:08 WBC MCV MCH MCHC RDW Lymph % (Auto) [place] % (Auto) Eos % (Auto) Lymph # (Auto) [place] # (Auto) Eos # (Auto) Baso # (Auto) Seg Neutrophils % Seg Neuts % (Manual) Lymphocytes % (Manual) Seg Neutrophils # Seg Neutrophils # Man Lymphocytes # (Manual) D-Dimer ABG pH POC ABG pCO2 POC ABG pO2 ABG pO2 ABG HCO3 ABG O2 Saturation ABG Base Excess ABG Oxyhemoglobin ABG Sodium ABG Chloride ABG Glucose Oxyhemoglobin Carboxyhemoglobin Sodium Potassium Chloride Carbon Dioxide BUN Creatinine Glucose POC Glucose 149 H 270 H 166 H Hemoglobin A1c Magnesium Ferritin AST ALT Alkaline Phosphatase Lactate Dehydrogenase C-Reactive Protein Total Protein Albumin Arterial Blood Glucose Coronavirus (PCR) 06/12/21 06/13/21 06/13/21 20:22 07:50 11:18 WBC MCV MCH MCHC RDW Lymph % (Auto) [place] % (Auto) Eos % (Auto) Lymph # (Auto) [place] # (Auto) Eos # (Auto) Baso # (Auto) Seg Neutrophils % Seg Neuts % (Manual) Lymphocytes % (Manual) Seg Neutrophils # Seg Neutrophils # Man Lymphocytes # (Manual) D-Dimer ABG pH POC ABG pCO2 POC ABG pO2 ABG pO2 ABG HCO3 ABG O2 Saturation ABG Base Excess ABG Oxyhemoglobin ABG Sodium ABG Chloride ABG Glucose Oxyhemoglobin Carboxyhemoglobin Sodium Potassium Chloride Carbon Dioxide BUN Creatinine Glucose POC Glucose 155 H 163 H 293 H Hemoglobin A1c Magnesium Ferritin AST ALT Alkaline Phosphatase Lactate Dehydrogenase C-Reactive Protein Total Protein Albumin Arterial Blood Glucose Coronavirus (PCR) 06/13/21 06/13/21 06/14/21 16:41 21:00 07:41 WBC MCV MCH MCHC RDW Lymph % (Auto) [place] % (Auto) Eos % (Auto) Lymph # (Auto) [place] # (Auto) Eos # (Auto) Baso # (Auto) Seg Neutrophils % Seg Neuts % (Manual) Lymphocytes % (Manual) Seg Neutrophils # Seg Neutrophils # Man Lymphocytes # (Manual) D-Dimer ABG pH POC ABG pCO2 POC ABG pO2 ABG pO2 ABG HCO3 ABG O2 Saturation ABG Base Excess ABG Oxyhemoglobin ABG Sodium ABG Chloride ABG Glucose Oxyhemoglobin Carboxyhemoglobin Sodium Potassium Chloride Carbon Dioxide BUN Creatinine Glucose POC Glucose 232 H 183 H 52 L Hemoglobin A1c Magnesium Ferritin AST ALT Alkaline Phosphatase Lactate Dehydrogenase C-Reactive Protein Total Protein Albumin Arterial Blood Glucose Coronavirus (PCR) 06/14/21 06/14/21 06/14/21 11:44 17:44 21:44 WBC MCV MCH MCHC RDW Lymph % (Auto) [place] % (Auto) Eos % (Auto) Lymph # (Auto) [place] # (Auto) Eos # (Auto) Baso # (Auto) Seg Neutrophils % Seg Neuts % (Manual) Lymphocytes % (Manual) Seg Neutrophils # Seg Neutrophils # Man Lymphocytes # (Manual) D-Dimer ABG pH POC ABG pCO2 POC ABG pO2 ABG pO2 ABG HCO3 ABG O2 Saturation ABG Base Excess ABG Oxyhemoglobin ABG Sodium ABG Chloride ABG Glucose Oxyhemoglobin Carboxyhemoglobin Sodium Potassium Chloride Carbon Dioxide BUN Creatinine Glucose POC Glucose 205 H 293 H 288 H Hemoglobin A1c Magnesium Ferritin AST ALT Alkaline Phosphatase Lactate Dehydrogenase C-Reactive Protein Total Protein Albumin Arterial Blood Glucose Coronavirus (PCR) 06/15/21 06/15/21 06/15/21 08:00 08:00 11:40 WBC MCV MCH 33 H MCHC 35 H RDW 20.3 H Lymph % (Auto) [place] % (Auto) Eos % (Auto) Lymph # (Auto) [place] # (Auto) Eos # (Auto) Baso # (Auto) Seg Neutrophils % Seg Neuts % (Manual) Lymphocytes % (Manual) Seg Neutrophils # Seg Neutrophils # Man Lymphocytes # (Manual) D-Dimer ABG pH POC ABG pCO2 POC ABG pO2 ABG pO2 ABG HCO3 ABG O2 Saturation ABG Base Excess ABG Oxyhemoglobin ABG Sodium ABG Chloride ABG Glucose Oxyhemoglobin Carboxyhemoglobin Sodium Potassium 3.2 L Chloride 95.3 L Carbon Dioxide 32 H BUN 23 H Creatinine 0.2 L Glucose 103 H POC Glucose 204 H Hemoglobin A1c Magnesium Ferritin AST ALT Alkaline Phosphatase Lactate Dehydrogenase C-Reactive Protein Total Protein Albumin Arterial Blood Glucose Coronavirus (PCR) 06/15/21 06/15/21 06/16/21 16:17 22:00 11:43 WBC MCV MCH MCHC RDW Lymph % (Auto) [place] % (Auto) Eos % (Auto) Lymph # (Auto) [place] # (Auto) Eos # (Auto) Baso # (Auto) Seg Neutrophils % Seg Neuts % (Manual) Lymphocytes % (Manual) Seg Neutrophils # Seg Neutrophils # Man Lymphocytes # (Manual) D-Dimer ABG pH POC ABG pCO2 POC ABG pO2 ABG pO2 ABG HCO3 ABG O2 Saturation ABG Base Excess ABG Oxyhemoglobin ABG Sodium ABG Chloride ABG Glucose Oxyhemoglobin Carboxyhemoglobin Sodium Potassium Chloride Carbon Dioxide BUN Creatinine Glucose POC Glucose 295 H 233 H 201 H Hemoglobin A1c Magnesium Ferritin AST ALT Alkaline Phosphatase Lactate Dehydrogenase C-Reactive Protein Total Protein Albumin Arterial Blood Glucose Coronavirus (PCR) 06/16/21 06/16/21 06/17/21 17:21 21:27 07:12 WBC MCV MCH MCHC RDW Lymph % (Auto) [place] % (Auto) Eos % (Auto) Lymph # (Auto) [place] # (Auto) Eos # (Auto) Baso # (Auto) Seg Neutrophils % Seg Neuts % (Manual) Lymphocytes % (Manual) Seg Neutrophils # Seg Neutrophils # Man Lymphocytes # (Manual) D-Dimer ABG pH POC ABG pCO2 POC ABG pO2 ABG pO2 ABG HCO3 ABG O2 Saturation ABG Base Excess ABG Oxyhemoglobin ABG Sodium ABG Chloride ABG Glucose Oxyhemoglobin Carboxyhemoglobin Sodium Potassium Chloride Carbon Dioxide BUN Creatinine Glucose POC Glucose 299 H 290 H 67 L Hemoglobin A1c Magnesium Ferritin AST ALT Alkaline Phosphatase Lactate Dehydrogenase C-Reactive Protein Total Protein Albumin Arterial Blood Glucose Coronavirus (PCR) 06/17/21 06/17/21 06/17/21 11:53 17:02 22:25 WBC MCV MCH MCHC RDW Lymph % (Auto) [place] % (Auto) Eos % (Auto) Lymph # (Auto) [place] # (Auto) Eos # (Auto) Baso # (Auto) Seg Neutrophils % Seg Neuts % (Manual) Lymphocytes % (Manual) Seg Neutrophils # Seg Neutrophils # Man Lymphocytes # (Manual) D-Dimer ABG pH POC ABG pCO2 POC ABG pO2 ABG pO2 ABG HCO3 ABG O2 Saturation ABG Base Excess ABG Oxyhemoglobin ABG Sodium ABG Chloride ABG Glucose Oxyhemoglobin Carboxyhemoglobin Sodium Potassium Chloride Carbon Dioxide BUN Creatinine Glucose POC Glucose 199 H 362 H 235 H Hemoglobin A1c Magnesium Ferritin AST ALT Alkaline Phosphatase Lactate Dehydrogenase C-Reactive Protein Total Protein Albumin Arterial Blood Glucose Coronavirus (PCR) 06/18/21 06/18/21 06/18/21 08:00 11:48 16:40 WBC MCV MCH MCHC RDW Lymph % (Auto) [place] % (Auto) Eos % (Auto) Lymph # (Auto) [place] # (Auto) Eos # (Auto) Baso # (Auto) Seg Neutrophils % Seg Neuts % (Manual) Lymphocytes % (Manual) Seg Neutrophils # Seg Neutrophils # Man Lymphocytes # (Manual) D-Dimer ABG pH POC ABG pCO2 POC ABG pO2 ABG pO2 ABG HCO3 ABG O2 Saturation ABG Base Excess ABG Oxyhemoglobin ABG Sodium ABG Chloride ABG Glucose Oxyhemoglobin Carboxyhemoglobin Sodium Potassium Chloride Carbon Dioxide BUN Creatinine Glucose POC Glucose 62 L 211 H 305 H Hemoglobin A1c Magnesium Ferritin AST ALT Alkaline Phosphatase Lactate Dehydrogenase C-Reactive Protein Total Protein Albumin Arterial Blood Glucose Coronavirus (PCR) 06/18/21 06/19/21 06/19/21 21:26 07:27 11:32 WBC MCV MCH MCHC RDW Lymph % (Auto) [place] % (Auto) Eos % (Auto) Lymph # (Auto) [place] # (Auto) Eos # (Auto) Baso # (Auto) Seg Neutrophils % Seg Neuts % (Manual) Lymphocytes % (Manual) Seg Neutrophils # Seg Neutrophils # Man Lymphocytes # (Manual) D-Dimer ABG pH POC ABG pCO2 POC ABG pO2 ABG pO2 ABG HCO3 ABG O2 Saturation ABG Base Excess ABG Oxyhemoglobin ABG Sodium ABG Chloride ABG Glucose Oxyhemoglobin Carboxyhemoglobin Sodium Potassium Chloride Carbon Dioxide BUN Creatinine Glucose POC Glucose 149 H 60 L 208 H Hemoglobin A1c Magnesium Ferritin AST ALT Alkaline Phosphatase Lactate Dehydrogenase C-Reactive Protein Total Protein Albumin Arterial Blood Glucose Coronavirus (PCR) 06/19/21 06/19/21 06/20/21 16:06 22:28 07:48 WBC MCV MCH MCHC RDW Lymph % (Auto) [place] % (Auto) Eos % (Auto) Lymph # (Auto) [place] # (Auto) Eos # (Auto) Baso # (Auto) Seg Neutrophils % Seg Neuts % (Manual) Lymphocytes % (Manual) Seg Neutrophils # Seg Neutrophils # Man Lymphocytes # (Manual) D-Dimer ABG pH POC ABG pCO2 POC ABG pO2 ABG pO2 ABG HCO3 ABG O2 Saturation ABG Base Excess ABG Oxyhemoglobin ABG Sodium ABG Chloride ABG Glucose Oxyhemoglobin Carboxyhemoglobin Sodium Potassium Chloride Carbon Dioxide BUN Creatinine Glucose POC Glucose 266 H 166 H 58 L Hemoglobin A1c Magnesium Ferritin AST ALT Alkaline Phosphatase Lactate Dehydrogenase C-Reactive Protein Total Protein Albumin Arterial Blood Glucose Coronavirus (PCR) 06/20/21 06/20/21 06/20/21 09:09 11:04 16:01 WBC MCV MCH MCHC RDW Lymph % (Auto) [place] % (Auto) Eos % (Auto) Lymph # (Auto) [place] # (Auto) Eos # (Auto) Baso # (Auto) Seg Neutrophils % Seg Neuts % (Manual) Lymphocytes % (Manual) Seg Neutrophils # Seg Neutrophils # Man Lymphocytes # (Manual) D-Dimer ABG pH POC ABG pCO2 POC ABG pO2 ABG pO2 ABG HCO3 ABG O2 Saturation ABG Base Excess ABG Oxyhemoglobin ABG Sodium ABG Chloride ABG Glucose Oxyhemoglobin Carboxyhemoglobin Sodium Potassium Chloride Carbon Dioxide BUN Creatinine Glucose POC Glucose 146 H 225 H 330 H Hemoglobin A1c Magnesium Ferritin AST ALT Alkaline Phosphatase Lactate Dehydrogenase C-Reactive Protein Total Protein Albumin Arterial Blood Glucose Coronavirus (PCR) 06/20/21 06/21/21 06/21/21 20:46 06:45 06:45 WBC MCV MCH MCHC RDW 20.0 H Lymph % (Auto) [place] % (Auto) Eos % (Auto) Lymph # (Auto) [place] # (Auto) Eos # (Auto) Baso # (Auto) Seg Neutrophils % Seg Neuts % (Manual) Lymphocytes % (Manual) Seg Neutrophils # Seg Neutrophils # Man Lymphocytes # (Manual) D-Dimer ABG pH POC ABG pCO2 POC ABG pO2 ABG pO2 ABG HCO3 ABG O2 Saturation ABG Base Excess ABG Oxyhemoglobin ABG Sodium ABG Chloride ABG Glucose Oxyhemoglobin Carboxyhemoglobin Sodium Potassium 2.9 L* Chloride 95.0 L Carbon Dioxide 31 H BUN 23 H Creatinine 0.2 L Glucose 45 L POC Glucose 215 H Hemoglobin A1c Magnesium Ferritin AST ALT Alkaline Phosphatase Lactate Dehydrogenase C-Reactive Protein Total Protein Albumin Arterial Blood Glucose Coronavirus (PCR) 06/21/21 06/21/21 06/21/21 07:38 09:06 12:40 WBC MCV MCH MCHC RDW Lymph % (Auto) [place] % (Auto) Eos % (Auto) Lymph # (Auto) [place] # (Auto) Eos # (Auto) Baso # (Auto) Seg Neutrophils % Seg Neuts % (Manual) Lymphocytes % (Manual) Seg Neutrophils # Seg Neutrophils # Man Lymphocytes # (Manual) D-Dimer ABG pH POC ABG pCO2 POC ABG pO2 ABG pO2 ABG HCO3 ABG O2 Saturation ABG Base Excess ABG Oxyhemoglobin ABG Sodium ABG Chloride ABG Glucose Oxyhemoglobin Carboxyhemoglobin Sodium Potassium Chloride Carbon Dioxide BUN Creatinine Glucose POC Glucose 50 L 196 H 205 H Hemoglobin A1c Magnesium Ferritin AST ALT Alkaline Phosphatase Lactate Dehydrogenase C-Reactive Protein Total Protein Albumin Arterial Blood Glucose Coronavirus (PCR) 06/21/21 06/22/21 06/22/21 21:36 06:25 07:15 WBC MCV MCH MCHC RDW Lymph % (Auto) [place] % (Auto) Eos % (Auto) Lymph # (Auto) [place] # (Auto) Eos # (Auto) Baso # (Auto) Seg Neutrophils % Seg Neuts % (Manual) Lymphocytes % (Manual) Seg Neutrophils # Seg Neutrophils # Man Lymphocytes # (Manual) D-Dimer ABG pH POC ABG pCO2 POC ABG pO2 ABG pO2 ABG HCO3 ABG O2 Saturation ABG Base Excess ABG Oxyhemoglobin ABG Sodium ABG Chloride ABG Glucose Oxyhemoglobin Carboxyhemoglobin Sodium Potassium Chloride Carbon Dioxide BUN 20 H Creatinine 0.2 L Glucose POC Glucose 245 H 66 L Hemoglobin A1c Magnesium Ferritin AST ALT Alkaline Phosphatase Lactate Dehydrogenase C-Reactive Protein Total Protein Albumin Arterial Blood Glucose Coronavirus (PCR) 06/22/21 06/22/21 06/22/21 11:03 16:07 22:03 WBC MCV MCH MCHC RDW Lymph % (Auto) [place] % (Auto) Eos % (Auto) Lymph # (Auto) [place] # (Auto) Eos # (Auto) Baso # (Auto) Seg Neutrophils % Seg Neuts % (Manual) Lymphocytes % (Manual) Seg Neutrophils # Seg Neutrophils # Man Lymphocytes # (Manual) D-Dimer ABG pH POC ABG pCO2 POC ABG pO2 ABG pO2 ABG HCO3 ABG O2 Saturation ABG Base Excess ABG Oxyhemoglobin ABG Sodium ABG Chloride ABG Glucose Oxyhemoglobin Carboxyhemoglobin Sodium Potassium Chloride Carbon Dioxide BUN Creatinine Glucose POC Glucose 184 H 326 H 138 H Hemoglobin A1c Magnesium Ferritin AST ALT Alkaline Phosphatase Lactate Dehydrogenase C-Reactive Protein Total Protein Albumin Arterial Blood Glucose Coronavirus (PCR) 06/23/21 06/23/21 06/23/21 07:19 10:34 16:35 WBC MCV MCH MCHC RDW Lymph % (Auto) [place] % (Auto) Eos % (Auto) Lymph # (Auto) [place] # (Auto) Eos # (Auto) Baso # (Auto) Seg Neutrophils % Seg Neuts % (Manual) Lymphocytes % (Manual) Seg Neutrophils # Seg Neutrophils # Man Lymphocytes # (Manual) D-Dimer ABG pH POC ABG pCO2 POC ABG pO2 ABG pO2 ABG HCO3 ABG O2 Saturation ABG Base Excess ABG Oxyhemoglobin ABG Sodium ABG Chloride ABG Glucose Oxyhemoglobin Carboxyhemoglobin Sodium Potassium Chloride Carbon Dioxide BUN Creatinine Glucose POC Glucose 69 L 218 H 326 H Hemoglobin A1c Magnesium Ferritin AST ALT Alkaline Phosphatase Lactate Dehydrogenase C-Reactive Protein Total Protein Albumin Arterial Blood Glucose Coronavirus (PCR) 06/23/21 06/24/21 06/24/21 22:44 11:41 16:54 WBC MCV MCH MCHC RDW Lymph % (Auto) [place] % (Auto) Eos % (Auto) Lymph # (Auto) [place] # (Auto) Eos # (Auto) Baso # (Auto) Seg Neutrophils % Seg Neuts % (Manual) Lymphocytes % (Manual) Seg Neutrophils # Seg Neutrophils # Man Lymphocytes # (Manual) D-Dimer ABG pH POC ABG pCO2 POC ABG pO2 ABG pO2 ABG HCO3 ABG O2 Saturation ABG Base Excess ABG Oxyhemoglobin ABG Sodium ABG Chloride ABG Glucose Oxyhemoglobin Carboxyhemoglobin Sodium Potassium Chloride Carbon Dioxide BUN Creatinine Glucose POC Glucose 252 H 217 H 357 H Hemoglobin A1c Magnesium Ferritin AST ALT Alkaline Phosphatase Lactate Dehydrogenase C-Reactive Protein Total Protein Albumin Arterial Blood Glucose Coronavirus (PCR) 06/24/21 06/25/21 06/25/21 20:40 11:51 16:47 WBC MCV MCH MCHC RDW Lymph % (Auto) [place] % (Auto) Eos % (Auto) Lymph # (Auto) [place] # (Auto) Eos # (Auto) Baso # (Auto) Seg Neutrophils % Seg Neuts % (Manual) Lymphocytes % (Manual) Seg Neutrophils # Seg Neutrophils # Man Lymphocytes # (Manual) D-Dimer ABG pH POC ABG pCO2 POC ABG pO2 ABG pO2 ABG HCO3 ABG O2 Saturation ABG Base Excess ABG Oxyhemoglobin ABG Sodium ABG Chloride ABG Glucose Oxyhemoglobin Carboxyhemoglobin Sodium Potassium Chloride Carbon Dioxide BUN Creatinine Glucose POC Glucose 239 H 182 H 229 H Hemoglobin A1c Magnesium Ferritin AST ALT Alkaline Phosphatase Lactate Dehydrogenase C-Reactive Protein Total Protein Albumin Arterial Blood Glucose Coronavirus (PCR) 06/25/21 06/26/21 06/26/21 22:27 07:20 12:19 WBC MCV MCH MCHC RDW Lymph % (Auto) [place] % (Auto) Eos % (Auto) Lymph # (Auto) [place] # (Auto) Eos # (Auto) Baso # (Auto) Seg Neutrophils % Seg Neuts % (Manual) Lymphocytes % (Manual) Seg Neutrophils # Seg Neutrophils # Man Lymphocytes # (Manual) D-Dimer ABG pH POC ABG pCO2 POC ABG pO2 ABG pO2 ABG HCO3 ABG O2 Saturation ABG Base Excess ABG Oxyhemoglobin ABG Sodium ABG Chloride ABG Glucose Oxyhemoglobin Carboxyhemoglobin Sodium Potassium 3.2 L D Chloride Carbon Dioxide BUN 20 H Creatinine 0.3 L Glucose POC Glucose 209 H 273 H Hemoglobin A1c Magnesium Ferritin AST ALT 77 H Alkaline Phosphatase Lactate Dehydrogenase C-Reactive Protein Total Protein Albumin 3.3 L Arterial Blood Glucose Coronavirus (PCR) 06/26/21 06/26/21 06/27/21 16:52 20:55 07:14 WBC MCV MCH MCHC RDW Lymph % (Auto) [place] % (Auto) Eos % (Auto) Lymph # (Auto) [place] # (Auto) Eos # (Auto) Baso # (Auto) Seg Neutrophils % Seg Neuts % (Manual) Lymphocytes % (Manual) Seg Neutrophils # Seg Neutrophils # Man Lymphocytes # (Manual) D-Dimer ABG pH POC ABG pCO2 POC ABG pO2 ABG pO2 ABG HCO3 ABG O2 Saturation ABG Base Excess ABG Oxyhemoglobin ABG Sodium ABG Chloride ABG Glucose Oxyhemoglobin Carboxyhemoglobin Sodium Potassium Chloride Carbon Dioxide 31 H BUN 19 H Creatinine 0.2 L Glucose 112 H POC Glucose 326 H 220 H Hemoglobin A1c Magnesium Ferritin AST ALT Alkaline Phosphatase Lactate Dehydrogenase C-Reactive Protein Total Protein Albumin Arterial Blood Glucose Coronavirus (PCR) 06/27/21 06/27/21 06/27/21 07:29 10:54 15:49 WBC MCV MCH MCHC RDW Lymph % (Auto) [place] % (Auto) Eos % (Auto) Lymph # (Auto) [place] # (Auto) Eos # (Auto) Baso # (Auto) Seg Neutrophils % Seg Neuts % (Manual) Lymphocytes % (Manual) Seg Neutrophils # Seg Neutrophils # Man Lymphocytes # (Manual) D-Dimer ABG pH POC ABG pCO2 POC ABG pO2 ABG pO2 ABG HCO3 ABG O2 Saturation ABG Base Excess ABG Oxyhemoglobin ABG Sodium ABG Chloride ABG Glucose Oxyhemoglobin Carboxyhemoglobin Sodium Potassium Chloride Carbon Dioxide BUN Creatinine Glucose POC Glucose 115 H 228 H 240 H Hemoglobin A1c Magnesium Ferritin AST ALT Alkaline Phosphatase Lactate Dehydrogenase C-Reactive Protein Total Protein Albumin Arterial Blood Glucose Coronavirus (PCR) 06/28/21 06/28/21 06/28/21 05:43 05:43 07:13 WBC MCV MCH 33 H MCHC RDW 19.8 H Lymph % (Auto) [place] % (Auto) Eos % (Auto) Lymph # (Auto) [place] # (Auto) Eos # (Auto) Baso # (Auto) Seg Neutrophils % Seg Neuts % (Manual) Lymphocytes % (Manual) Seg Neutrophils # Seg Neutrophils # Man Lymphocytes # (Manual) D-Dimer ABG pH POC ABG pCO2 POC ABG pO2 ABG pO2 ABG HCO3 ABG O2 Saturation ABG Base Excess ABG Oxyhemoglobin ABG Sodium ABG Chloride ABG Glucose Oxyhemoglobin Carboxyhemoglobin Sodium Potassium 3.3 L Chloride Carbon Dioxide BUN 22 H Creatinine 0.2 L Glucose POC Glucose 69 L Hemoglobin A1c Magnesium Ferritin AST ALT 63 H Alkaline Phosphatase Lactate Dehydrogenase C-Reactive Protein Total Protein Albumin 3.3 L Arterial Blood Glucose Coronavirus (PCR) 06/28/21 06/28/21 06/28/21 12:18 15:37 21:01 WBC MCV MCH MCHC RDW Lymph % (Auto) [place] % (Auto) Eos % (Auto) Lymph # (Auto) [place] # (Auto) Eos # (Auto) Baso # (Auto) Seg Neutrophils % Seg Neuts % (Manual) Lymphocytes % (Manual) Seg Neutrophils # Seg Neutrophils # Man Lymphocytes # (Manual) D-Dimer ABG pH POC ABG pCO2 POC ABG pO2 ABG pO2 ABG HCO3 ABG O2 Saturation ABG Base Excess ABG Oxyhemoglobin ABG Sodium ABG Chloride ABG Glucose Oxyhemoglobin Carboxyhemoglobin Sodium Potassium Chloride Carbon Dioxide BUN Creatinine Glucose POC Glucose 154 H 201 H 191 H Hemoglobin A1c Magnesium Ferritin AST ALT Alkaline Phosphatase Lactate Dehydrogenase C-Reactive Protein Total Protein Albumin Arterial Blood Glucose Coronavirus (PCR) 06/29/21 06/29/21 06/29/21 11:55 15:47 21:06 WBC MCV MCH MCHC RDW Lymph % (Auto) [place] % (Auto) Eos % (Auto) Lymph # (Auto) [place] # (Auto) Eos # (Auto) Baso # (Auto) Seg Neutrophils % Seg Neuts % (Manual) Lymphocytes % (Manual) Seg Neutrophils # Seg Neutrophils # Man Lymphocytes # (Manual) D-Dimer ABG pH POC ABG pCO2 POC ABG pO2 ABG pO2 ABG HCO3 ABG O2 Saturation ABG Base Excess ABG Oxyhemoglobin ABG Sodium ABG Chloride ABG Glucose Oxyhemoglobin Carboxyhemoglobin Sodium Potassium Chloride Carbon Dioxide BUN Creatinine Glucose POC Glucose 238 H 249 H 155 H Hemoglobin A1c Magnesium Ferritin AST ALT Alkaline Phosphatase Lactate Dehydrogenase C-Reactive Protein Total Protein Albumin Arterial Blood Glucose Coronavirus (PCR) 06/30/21 06/30/21 06/30/21 04:00 07:50 11:50 WBC MCV MCH MCHC RDW Lymph % (Auto) [place] % (Auto) Eos % (Auto) Lymph # (Auto) [place] # (Auto) Eos # (Auto) Baso # (Auto) Seg Neutrophils % Seg Neuts % (Manual) Lymphocytes % (Manual) Seg Neutrophils # Seg Neutrophils # Man Lymphocytes # (Manual) D-Dimer ABG pH POC ABG pCO2 POC ABG pO2 ABG pO2 ABG HCO3 ABG O2 Saturation ABG Base Excess ABG Oxyhemoglobin ABG Sodium ABG Chloride ABG Glucose Oxyhemoglobin Carboxyhemoglobin Sodium Potassium 3.5 L Chloride Carbon Dioxide BUN 18 H Creatinine 0.3 L Glucose 111 H POC Glucose 117 H 250 H Hemoglobin A1c Magnesium Ferritin AST ALT Alkaline Phosphatase Lactate Dehydrogenase C-Reactive Protein Total Protein Albumin Arterial Blood Glucose Coronavirus (PCR) 06/30/21 06/30/21 07/01/21 16:05 21:02 07:26 WBC MCV MCH MCHC RDW Lymph % (Auto) [place] % (Auto) Eos % (Auto) Lymph # (Auto) [place] # (Auto) Eos # (Auto) Baso # (Auto) Seg Neutrophils % Seg Neuts % (Manual) Lymphocytes % (Manual) Seg Neutrophils # Seg Neutrophils # Man Lymphocytes # (Manual) D-Dimer ABG pH POC ABG pCO2 POC ABG pO2 ABG pO2 ABG HCO3 ABG O2 Saturation ABG Base Excess ABG Oxyhemoglobin ABG Sodium ABG Chloride ABG Glucose Oxyhemoglobin Carboxyhemoglobin Sodium Potassium Chloride Carbon Dioxide BUN Creatinine Glucose POC Glucose 250 H 217 H 111 H Hemoglobin A1c Magnesium Ferritin AST ALT Alkaline Phosphatase Lactate Dehydrogenase C-Reactive Protein Total Protein Albumin Arterial Blood Glucose Coronavirus (PCR) 07/01/21 07/01/21 07/01/21 11:06 15:48 21:31 WBC MCV MCH MCHC RDW Lymph % (Auto) [place] % (Auto) Eos % (Auto) Lymph # (Auto) [place] # (Auto) Eos # (Auto) Baso # (Auto) Seg Neutrophils % Seg Neuts % (Manual) Lymphocytes % (Manual) Seg Neutrophils # Seg Neutrophils # Man Lymphocytes # (Manual) D-Dimer ABG pH POC ABG pCO2 POC ABG pO2 ABG pO2 ABG HCO3 ABG O2 Saturation ABG Base Excess ABG Oxyhemoglobin ABG Sodium ABG Chloride ABG Glucose Oxyhemoglobin Carboxyhemoglobin Sodium Potassium Chloride Carbon Dioxide BUN Creatinine Glucose POC Glucose 229 H 239 H 199 H Hemoglobin A1c Magnesium Ferritin AST ALT Alkaline Phosphatase Lactate Dehydrogenase C-Reactive Protein Total Protein Albumin Arterial Blood Glucose Coronavirus (PCR) 07/02/21 07/02/21 07/02/21 11:50 16:44 21:49 WBC MCV MCH MCHC RDW Lymph % (Auto) [place] % (Auto) Eos % (Auto) Lymph # (Auto) [place] # (Auto) Eos # (Auto) Baso # (Auto) Seg Neutrophils % Seg Neuts % (Manual) Lymphocytes % (Manual) Seg Neutrophils # Seg Neutrophils # Man Lymphocytes # (Manual) D-Dimer ABG pH POC ABG pCO2 POC ABG pO2 ABG pO2 ABG HCO3 ABG O2 Saturation ABG Base Excess ABG Oxyhemoglobin ABG Sodium ABG Chloride ABG Glucose Oxyhemoglobin Carboxyhemoglobin Sodium Potassium Chloride Carbon Dioxide BUN Creatinine Glucose POC Glucose 230 H 203 H 197 H Hemoglobin A1c Magnesium Ferritin AST ALT Alkaline Phosphatase Lactate Dehydrogenase C-Reactive Protein Total Protein Albumin Arterial Blood Glucose Coronavirus (PCR) 07/03/21 07/03/21 07/03/21 05:46 05:46 11:59 WBC MCV MCH MCHC RDW 19.6 H Lymph % (Auto) [place] % (Auto) Eos % (Auto) Lymph # (Auto) [place] # (Auto) Eos # (Auto) Baso # (Auto) Seg Neutrophils % Seg Neuts % (Manual) Lymphocytes % (Manual) Seg Neutrophils # Seg Neutrophils # Man Lymphocytes # (Manual) D-Dimer ABG pH POC ABG pCO2 POC ABG pO2 ABG pO2 ABG HCO3 ABG O2 Saturation ABG Base Excess ABG Oxyhemoglobin ABG Sodium ABG Chloride ABG Glucose Oxyhemoglobin Carboxyhemoglobin Sodium Potassium 3.2 L Chloride Carbon Dioxide BUN Creatinine 0.3 L Glucose POC Glucose 145 H Hemoglobin A1c Magnesium Ferritin AST ALT Alkaline Phosphatase Lactate Dehydrogenase C-Reactive Protein Total Protein Albumin Arterial Blood Glucose Coronavirus (PCR) 07/03/21 07/03/21 07/04/21 16:40 22:00 06:35 WBC MCV MCH MCHC RDW Lymph % (Auto) [place] % (Auto) Eos % (Auto) Lymph # (Auto) [place] # (Auto) Eos # (Auto) Baso # (Auto) Seg Neutrophils % Seg Neuts % (Manual) Lymphocytes % (Manual) Seg Neutrophils # Seg Neutrophils # Man Lymphocytes # (Manual) D-Dimer ABG pH POC ABG pCO2 POC ABG pO2 ABG pO2 ABG HCO3 ABG O2 Saturation ABG Base Excess ABG Oxyhemoglobin ABG Sodium ABG Chloride ABG Glucose Oxyhemoglobin Carboxyhemoglobin Sodium Potassium Chloride Carbon Dioxide BUN Creatinine 0.3 L Glucose 118 H POC Glucose 176 H 127 H Hemoglobin A1c Magnesium Ferritin AST ALT Alkaline Phosphatase Lactate Dehydrogenase C-Reactive Protein Total Protein Albumin Arterial Blood Glucose Coronavirus (PCR) 07/04/21 07/04/21 07/05/21 12:30 16:38 08:37 WBC MCV MCH MCHC RDW Lymph % (Auto) [place] % (Auto) Eos % (Auto) Lymph # (Auto) [place] # (Auto) Eos # (Auto) Baso # (Auto) Seg Neutrophils % Seg Neuts % (Manual) Lymphocytes % (Manual) Seg Neutrophils # Seg Neutrophils # Man Lymphocytes # (Manual) D-Dimer ABG pH POC ABG pCO2 POC ABG pO2 ABG pO2 ABG HCO3 ABG O2 Saturation ABG Base Excess ABG Oxyhemoglobin ABG Sodium ABG Chloride ABG Glucose Oxyhemoglobin Carboxyhemoglobin Sodium Potassium Chloride Carbon Dioxide BUN Creatinine Glucose POC Glucose 162 H 205 H 115 H Hemoglobin A1c Magnesium Ferritin AST ALT Alkaline Phosphatase Lactate Dehydrogenase C-Reactive Protein Total Protein Albumin Arterial Blood Glucose Coronavirus (PCR) 07/05/21 07/05/21 07/05/21 10:57 16:42 21:14 WBC MCV MCH MCHC RDW Lymph % (Auto) [place] % (Auto) Eos % (Auto) Lymph # (Auto) [place] # (Auto) Eos # (Auto) Baso # (Auto) Seg Neutrophils % Seg Neuts % (Manual) Lymphocytes % (Manual) Seg Neutrophils # Seg Neutrophils # Man Lymphocytes # (Manual) D-Dimer ABG pH POC ABG pCO2 POC ABG pO2 ABG pO2 ABG HCO3 ABG O2 Saturation ABG Base Excess ABG Oxyhemoglobin ABG Sodium ABG Chloride ABG Glucose Oxyhemoglobin Carboxyhemoglobin Sodium Potassium Chloride Carbon Dioxide BUN Creatinine Glucose POC Glucose 151 H 184 H 130 H Hemoglobin A1c Magnesium Ferritin AST ALT Alkaline Phosphatase Lactate Dehydrogenase C-Reactive Protein Total Protein Albumin Arterial Blood Glucose Coronavirus (PCR) 07/06/21 07/06/21 07/06/21 07:31 11:49 16:46 WBC MCV MCH MCHC RDW Lymph % (Auto) [place] % (Auto) Eos % (Auto) Lymph # (Auto) [place] # (Auto) Eos # (Auto) Baso # (Auto) Seg Neutrophils % Seg Neuts % (Manual) Lymphocytes % (Manual) Seg Neutrophils # Seg Neutrophils # Man Lymphocytes # (Manual) D-Dimer ABG pH POC ABG pCO2 POC ABG pO2 ABG pO2 ABG HCO3 ABG O2 Saturation ABG Base Excess ABG Oxyhemoglobin ABG Sodium ABG Chloride ABG Glucose Oxyhemoglobin Carboxyhemoglobin Sodium Potassium Chloride Carbon Dioxide BUN Creatinine Glucose POC Glucose 106 H 173 H 205 H Hemoglobin A1c Magnesium Ferritin AST ALT Alkaline Phosphatase Lactate Dehydrogenase C-Reactive Protein Total Protein Albumin Arterial Blood Glucose Coronavirus (PCR) 07/06/21 07/07/21 07/07/21 21:38 06:00 06:00 WBC 16.1 H MCV MCH MCHC RDW 18.8 H Lymph % (Auto) [place] % (Auto) Eos % (Auto) Lymph # (Auto) [place] # (Auto) 1.1 H Eos # (Auto) Baso # (Auto) 0.2 H Seg Neutrophils % 74.9 H Seg Neuts % (Manual) Lymphocytes % (Manual) Seg Neutrophils # 12.1 H Seg Neutrophils # Man Lymphocytes # (Manual) D-Dimer ABG pH POC ABG pCO2 POC ABG pO2 ABG pO2 ABG HCO3 ABG O2 Saturation ABG Base Excess ABG Oxyhemoglobin ABG Sodium ABG Chloride ABG Glucose Oxyhemoglobin Carboxyhemoglobin Sodium Potassium 3.5 L D Chloride Carbon Dioxide BUN 6 L Creatinine < 0.2 L Glucose 106 H POC Glucose 120 H Hemoglobin A1c Magnesium Ferritin AST ALT Alkaline Phosphatase Lactate Dehydrogenase C-Reactive Protein Total Protein Albumin Arterial Blood Glucose Coronavirus (PCR) 07/07/21 07/07/21 07/07/21 07:10 11:53 15:53 WBC MCV MCH MCHC RDW Lymph % (Auto) [place] % (Auto) Eos % (Auto) Lymph # (Auto) [place] # (Auto) Eos # (Auto) Baso # (Auto) Seg Neutrophils % Seg Neuts % (Manual) Lymphocytes % (Manual) Seg Neutrophils # Seg Neutrophils # Man Lymphocytes # (Manual) D-Dimer ABG pH POC ABG pCO2 POC ABG pO2 ABG pO2 ABG HCO3 ABG O2 Saturation ABG Base Excess ABG Oxyhemoglobin ABG Sodium ABG Chloride ABG Glucose Oxyhemoglobin Carboxyhemoglobin Sodium Potassium Chloride Carbon Dioxide BUN Creatinine Glucose POC Glucose 132 H 169 H 242 H Hemoglobin A1c Magnesium Ferritin AST ALT Alkaline Phosphatase Lactate Dehydrogenase C-Reactive Protein Total Protein Albumin Arterial Blood Glucose Coronavirus (PCR) 07/07/21 07/08/21 07/08/21 21:41 08:09 12:20 WBC MCV MCH MCHC RDW Lymph % (Auto) [place] % (Auto) Eos % (Auto) Lymph # (Auto) [place] # (Auto) Eos # (Auto) Baso # (Auto) Seg Neutrophils % Seg Neuts % (Manual) Lymphocytes % (Manual) Seg Neutrophils # Seg Neutrophils # Man Lymphocytes # (Manual) D-Dimer ABG pH POC ABG pCO2 POC ABG pO2 ABG pO2 ABG HCO3 ABG O2 Saturation ABG Base Excess ABG Oxyhemoglobin ABG Sodium ABG Chloride ABG Glucose Oxyhemoglobin Carboxyhemoglobin Sodium Potassium Chloride Carbon Dioxide BUN Creatinine Glucose POC Glucose 128 H 132 H 179 H Hemoglobin A1c Magnesium Ferritin AST ALT Alkaline Phosphatase Lactate Dehydrogenase C-Reactive Protein Total Protein Albumin Arterial Blood Glucose Coronavirus (PCR) 07/08/21 07/08/21 07/08/21 16:37 21:45 22:44 WBC MCV MCH MCHC RDW Lymph % (Auto) [place] % (Auto) Eos % (Auto) Lymph # (Auto) [place] # (Auto) Eos # (Auto) Baso # (Auto) Seg Neutrophils % Seg Neuts % (Manual) Lymphocytes % (Manual) Seg Neutrophils # Seg Neutrophils # Man Lymphocytes # (Manual) D-Dimer ABG pH POC ABG pCO2 POC ABG pO2 ABG pO2 ABG HCO3 ABG O2 Saturation ABG Base Excess ABG Oxyhemoglobin ABG Sodium ABG Chloride ABG Glucose Oxyhemoglobin Carboxyhemoglobin Sodium Potassium Chloride Carbon Dioxide BUN Creatinine Glucose POC Glucose 192 H 51 L 137 H Hemoglobin A1c Magnesium Ferritin AST ALT Alkaline Phosphatase Lactate Dehydrogenase C-Reactive Protein Total Protein Albumin Arterial Blood Glucose Coronavirus (PCR) 07/09/21 07/09/21 07/09/21 04:45 04:45 04:45 WBC MCV MCH MCHC RDW 18.3 H Lymph % (Auto) [place] % (Auto) Eos % (Auto) Lymph # (Auto) [place] # (Auto) Eos # (Auto) Baso # (Auto) Seg Neutrophils % Seg Neuts % (Manual) 82.0 H Lymphocytes % (Manual) 13.0 L Seg Neutrophils # Seg Neutrophils # Man 7.8 H Lymphocytes # (Manual) D-Dimer 638.35 H ABG pH POC ABG pCO2 POC ABG pO2 ABG pO2 ABG HCO3 ABG O2 Saturation ABG Base Excess ABG Oxyhemoglobin ABG Sodium ABG Chloride ABG Glucose Oxyhemoglobin Carboxyhemoglobin Sodium Potassium Chloride 96.9 L Carbon Dioxide 35 H BUN Creatinine 0.2 L Glucose 135 H POC Glucose Hemoglobin A1c Magnesium Ferritin AST ALT Alkaline Phosphatase Lactate Dehydrogenase C-Reactive Protein 4.30 H Total Protein Albumin Arterial Blood Glucose Coronavirus (PCR) 07/09/21 07/09/21 07/09/21 05:19 07:36 11:16 WBC MCV MCH MCHC RDW Lymph % (Auto) [place] % (Auto) Eos % (Auto) Lymph # (Auto) [place] # (Auto) Eos # (Auto) Baso # (Auto) Seg Neutrophils % Seg Neuts % (Manual) Lymphocytes % (Manual) Seg Neutrophils # Seg Neutrophils # Man Lymphocytes # (Manual) D-Dimer ABG pH POC ABG pCO2 POC ABG pO2 ABG pO2 ABG HCO3 ABG O2 Saturation ABG Base Excess ABG Oxyhemoglobin ABG Sodium ABG Chloride ABG Glucose Oxyhemoglobin Carboxyhemoglobin Sodium Potassium Chloride Carbon Dioxide BUN Creatinine Glucose POC Glucose 135 H 148 H 212 H Hemoglobin A1c Magnesium Ferritin AST ALT Alkaline Phosphatase Lactate Dehydrogenase C-Reactive Protein Total Protein Albumin Arterial Blood Glucose Coronavirus (PCR) 07/09/21 07/09/21 07/10/21 15:21 21:12 05:40 WBC MCV MCH MCHC RDW Lymph % (Auto) [place] % (Auto) Eos % (Auto) Lymph # (Auto) [place] # (Auto) Eos # (Auto) Baso # (Auto) Seg Neutrophils % Seg Neuts % (Manual) Lymphocytes % (Manual) Seg Neutrophils # Seg Neutrophils # Man Lymphocytes # (Manual) D-Dimer ABG pH POC ABG pCO2 POC ABG pO2 ABG pO2 ABG HCO3 ABG O2 Saturation ABG Base Excess ABG Oxyhemoglobin ABG Sodium ABG Chloride ABG Glucose Oxyhemoglobin Carboxyhemoglobin Sodium Potassium 3.3 L Chloride 95.1 L Carbon Dioxide 39 H BUN Creatinine 0.2 L Glucose 122 H POC Glucose 128 H 196 H Hemoglobin A1c Magnesium Ferritin AST ALT Alkaline Phosphatase Lactate Dehydrogenase C-Reactive Protein Total Protein Albumin Arterial Blood Glucose Coronavirus (PCR) 07/10/21 07/10/21 07/10/21 07:38 11:15 16:29 WBC MCV MCH MCHC RDW Lymph % (Auto) [place] % (Auto) Eos % (Auto) Lymph # (Auto) [place] # (Auto) Eos # (Auto) Baso # (Auto) Seg Neutrophils % Seg Neuts % (Manual) Lymphocytes % (Manual) Seg Neutrophils # Seg Neutrophils # Man Lymphocytes # (Manual) D-Dimer ABG pH POC ABG pCO2 POC ABG pO2 ABG pO2 ABG HCO3 ABG O2 Saturation ABG Base Excess ABG Oxyhemoglobin ABG Sodium ABG Chloride ABG Glucose Oxyhemoglobin Carboxyhemoglobin Sodium Potassium Chloride Carbon Dioxide BUN Creatinine Glucose POC Glucose 128 H 175 H 174 H Hemoglobin A1c Magnesium Ferritin AST ALT Alkaline Phosphatase Lactate Dehydrogenase C-Reactive Protein Total Protein Albumin Arterial Blood Glucose Coronavirus (PCR) 07/10/21 07/11/21 07/11/21 20:49 05:50 12:08 WBC MCV MCH MCHC RDW Lymph % (Auto) [place] % (Auto) Eos % (Auto) Lymph # (Auto) [place] # (Auto) Eos # (Auto) Baso # (Auto) Seg Neutrophils % Seg Neuts % (Manual) Lymphocytes % (Manual) Seg Neutrophils # Seg Neutrophils # Man Lymphocytes # (Manual) D-Dimer ABG pH POC ABG pCO2 POC ABG pO2 ABG pO2 ABG HCO3 ABG O2 Saturation ABG Base Excess ABG Oxyhemoglobin ABG Sodium ABG Chloride ABG Glucose Oxyhemoglobin Carboxyhemoglobin Sodium Potassium Chloride 97.3 L Carbon Dioxide 34 H BUN Creatinine 0.2 L Glucose 109 H POC Glucose 142 H 220 H Hemoglobin A1c Magnesium Ferritin AST ALT Alkaline Phosphatase Lactate Dehydrogenase C-Reactive Protein Total Protein Albumin Arterial Blood Glucose Coronavirus (PCR) 07/11/21 07/11/21 07/12/21 17:09 21:55 07:36 WBC MCV MCH MCHC RDW Lymph % (Auto) [place] % (Auto) Eos % (Auto) Lymph # (Auto) [place] # (Auto) Eos # (Auto) Baso # (Auto) Seg Neutrophils % Seg Neuts % (Manual) Lymphocytes % (Manual) Seg Neutrophils # Seg Neutrophils # Man Lymphocytes # (Manual) D-Dimer ABG pH POC ABG pCO2 POC ABG pO2 ABG pO2 ABG HCO3 ABG O2 Saturation ABG Base Excess ABG Oxyhemoglobin ABG Sodium ABG Chloride ABG Glucose Oxyhemoglobin Carboxyhemoglobin Sodium Potassium Chloride Carbon Dioxide BUN Creatinine Glucose POC Glucose 219 H 124 H 114 H Hemoglobin A1c Magnesium Ferritin AST ALT Alkaline Phosphatase Lactate Dehydrogenase C-Reactive Protein Total Protein Albumin Arterial Blood Glucose Coronavirus (PCR) 07/12/21 07/12/21 07/12/21 11:08 15:43 22:20 WBC MCV MCH MCHC RDW Lymph % (Auto) [place] % (Auto) Eos % (Auto) Lymph # (Auto) [place] # (Auto) Eos # (Auto) Baso # (Auto) Seg Neutrophils % Seg Neuts % (Manual) Lymphocytes % (Manual) Seg Neutrophils # Seg Neutrophils # Man Lymphocytes # (Manual) D-Dimer ABG pH POC ABG pCO2 POC ABG pO2 ABG pO2 ABG HCO3 ABG O2 Saturation ABG Base Excess ABG Oxyhemoglobin ABG Sodium ABG Chloride ABG Glucose Oxyhemoglobin Carboxyhemoglobin Sodium Potassium Chloride Carbon Dioxide BUN Creatinine Glucose POC Glucose 195 H 276 H 189 H Hemoglobin A1c Magnesium Ferritin AST ALT Alkaline Phosphatase Lactate Dehydrogenase C-Reactive Protein Total Protein Albumin Arterial Blood Glucose Coronavirus (PCR) 07/13/21 07/13/21 07/13/21 08:01 08:08 10:17 WBC MCV MCH MCHC RDW Lymph % (Auto) [place] % (Auto) Eos % (Auto) Lymph # (Auto) [place] # (Auto) Eos # (Auto) Baso # (Auto) Seg Neutrophils % Seg Neuts % (Manual) Lymphocytes % (Manual) Seg Neutrophils # Seg Neutrophils # Man Lymphocytes # (Manual) D-Dimer ABG pH POC ABG pCO2 POC ABG pO2 ABG pO2 ABG HCO3 ABG O2 Saturation ABG Base Excess ABG Oxyhemoglobin ABG Sodium ABG Chloride ABG Glucose Oxyhemoglobin Carboxyhemoglobin Sodium Potassium Chloride 94.4 L Carbon Dioxide 34 H BUN Creatinine 0.3 L Glucose 149 H POC Glucose 132 H 265 H Hemoglobin A1c Magnesium Ferritin AST ALT Alkaline Phosphatase Lactate Dehydrogenase C-Reactive Protein Total Protein Albumin Arterial Blood Glucose Coronavirus (PCR) 07/13/21 07/13/21 07/14/21 17:58 21:41 07:34 WBC MCV MCH MCHC RDW Lymph % (Auto) [place] % (Auto) Eos % (Auto) Lymph # (Auto) [place] # (Auto) Eos # (Auto) Baso # (Auto) Seg Neutrophils % Seg Neuts % (Manual) Lymphocytes % (Manual) Seg Neutrophils # Seg Neutrophils # Man Lymphocytes # (Manual) D-Dimer ABG pH POC ABG pCO2 POC ABG pO2 ABG pO2 ABG HCO3 ABG O2 Saturation ABG Base Excess ABG Oxyhemoglobin ABG Sodium ABG Chloride ABG Glucose Oxyhemoglobin Carboxyhemoglobin Sodium Potassium Chloride Carbon Dioxide BUN Creatinine Glucose POC Glucose 217 H 223 H 116 H Hemoglobin A1c Magnesium Ferritin AST ALT Alkaline Phosphatase Lactate Dehydrogenase C-Reactive Protein Total Protein Albumin Arterial Blood Glucose Coronavirus (PCR) 07/14/21 07/14/21 07/14/21 10:50 17:33 20:51 WBC MCV MCH MCHC RDW Lymph % (Auto) [place] % (Auto) Eos % (Auto) Lymph # (Auto) [place] # (Auto) Eos # (Auto) Baso # (Auto) Seg Neutrophils % Seg Neuts % (Manual) Lymphocytes % (Manual) Seg Neutrophils # Seg Neutrophils # Man Lymphocytes # (Manual) D-Dimer ABG pH POC ABG pCO2 POC ABG pO2 ABG pO2 ABG HCO3 ABG O2 Saturation ABG Base Excess ABG Oxyhemoglobin ABG Sodium ABG Chloride ABG Glucose Oxyhemoglobin Carboxyhemoglobin Sodium Potassium Chloride Carbon Dioxide BUN Creatinine Glucose POC Glucose 191 H 173 H 132 H Hemoglobin A1c Magnesium Ferritin AST ALT Alkaline Phosphatase Lactate Dehydrogenase C-Reactive Protein Total Protein Albumin Arterial Blood Glucose Coronavirus (PCR) 07/15/21 07/15/21 07/15/21 04:00 07:59 12:31 WBC MCV MCH MCHC RDW Lymph % (Auto) [place] % (Auto) Eos % (Auto) Lymph # (Auto) [place] # (Auto) Eos # (Auto) Baso # (Auto) Seg Neutrophils % Seg Neuts % (Manual) Lymphocytes % (Manual) Seg Neutrophils # Seg Neutrophils # Man Lymphocytes # (Manual) D-Dimer ABG pH POC ABG pCO2 POC ABG pO2 ABG pO2 ABG HCO3 ABG O2 Saturation ABG Base Excess ABG Oxyhemoglobin ABG Sodium ABG Chloride ABG Glucose Oxyhemoglobin Carboxyhemoglobin Sodium Potassium Chloride 96.0 L Carbon Dioxide 32 H BUN Creatinine 0.3 L Glucose 208 H POC Glucose 117 H 195 H Hemoglobin A1c Magnesium Ferritin AST ALT Alkaline Phosphatase Lactate Dehydrogenase C-Reactive Protein Total Protein Albumin Arterial Blood Glucose Coronavirus (PCR) 07/15/21 07/15/21 07/16/21 18:00 20:57 04:40 WBC MCV MCH MCHC RDW 17.1 H Lymph % (Auto) [place] % (Auto) Eos % (Auto) Lymph # (Auto) [place] # (Auto) Eos # (Auto) Baso # (Auto) Seg Neutrophils % Seg Neuts % (Manual) Lymphocytes % (Manual) Seg Neutrophils # Seg Neutrophils # Man Lymphocytes # (Manual) D-Dimer ABG pH POC ABG pCO2 POC ABG pO2 ABG pO2 ABG HCO3 ABG O2 Saturation ABG Base Excess ABG Oxyhemoglobin ABG Sodium ABG Chloride ABG Glucose Oxyhemoglobin Carboxyhemoglobin Sodium Potassium Chloride Carbon Dioxide BUN Creatinine Glucose POC Glucose 217 H 111 H Hemoglobin A1c Magnesium Ferritin AST ALT Alkaline Phosphatase Lactate Dehydrogenase C-Reactive Protein Total Protein Albumin Arterial Blood Glucose Coronavirus (PCR) 07/16/21 07/16/21 07/16/21 04:40 07:08 11:11 WBC MCV MCH MCHC RDW Lymph % (Auto) [place] % (Auto) Eos % (Auto) Lymph # (Auto) [place] # (Auto) Eos # (Auto) Baso # (Auto) Seg Neutrophils % Seg Neuts % (Manual) Lymphocytes % (Manual) Seg Neutrophils # Seg Neutrophils # Man Lymphocytes # (Manual) D-Dimer ABG pH POC ABG pCO2 POC ABG pO2 ABG pO2 ABG HCO3 ABG O2 Saturation ABG Base Excess ABG Oxyhemoglobin ABG Sodium ABG Chloride ABG Glucose Oxyhemoglobin Carboxyhemoglobin Sodium Potassium 3.4 L Chloride 94.6 L Carbon Dioxide 36 H BUN Creatinine < 0.2 L Glucose 101 H POC Glucose 118 H 184 H Hemoglobin A1c Magnesium Ferritin AST ALT Alkaline Phosphatase Lactate Dehydrogenase C-Reactive Protein Total Protein Albumin Arterial Blood Glucose Coronavirus (PCR) 07/16/21 07/16/21 07/17/21 17:29 22:01 08:10 WBC MCV MCH MCHC RDW Lymph % (Auto) [place] % (Auto) Eos % (Auto) Lymph # (Auto) [place] # (Auto) Eos # (Auto) Baso # (Auto) Seg Neutrophils % Seg Neuts % (Manual) Lymphocytes % (Manual) Seg Neutrophils # Seg Neutrophils # Man Lymphocytes # (Manual) D-Dimer ABG pH POC ABG pCO2 POC ABG pO2 ABG pO2 ABG HCO3 ABG O2 Saturation ABG Base Excess ABG Oxyhemoglobin ABG Sodium ABG Chloride ABG Glucose Oxyhemoglobin Carboxyhemoglobin Sodium Potassium Chloride Carbon Dioxide BUN Creatinine Glucose POC Glucose 200 H 147 H 118 H Hemoglobin A1c Magnesium Ferritin AST ALT Alkaline Phosphatase Lactate Dehydrogenase C-Reactive Protein Total Protein Albumin Arterial Blood Glucose Coronavirus (PCR) 07/17/21 07/17/21 07/17/21 11:38 16:24 21:13 WBC MCV MCH MCHC RDW Lymph % (Auto) [place] % (Auto) Eos % (Auto) Lymph # (Auto) [place] # (Auto) Eos # (Auto) Baso # (Auto) Seg Neutrophils % Seg Neuts % (Manual) Lymphocytes % (Manual) Seg Neutrophils # Seg Neutrophils # Man Lymphocytes # (Manual) D-Dimer ABG pH POC ABG pCO2 POC ABG pO2 ABG pO2 ABG HCO3 ABG O2 Saturation ABG Base Excess ABG Oxyhemoglobin ABG Sodium ABG Chloride ABG Glucose Oxyhemoglobin Carboxyhemoglobin Sodium Potassium Chloride Carbon Dioxide BUN Creatinine Glucose POC Glucose 151 H 268 H 115 H Hemoglobin A1c Magnesium Ferritin AST ALT Alkaline Phosphatase Lactate Dehydrogenase C-Reactive Protein Total Protein Albumin Arterial Blood Glucose Coronavirus (PCR) 07/18/21 07/18/21 07/18/21 07:58 12:29 20:24 WBC MCV MCH MCHC RDW Lymph % (Auto) [place] % (Auto) Eos % (Auto) Lymph # (Auto) [place] # (Auto) Eos # (Auto) Baso # (Auto) Seg Neutrophils % Seg Neuts % (Manual) Lymphocytes % (Manual) Seg Neutrophils # Seg Neutrophils # Man Lymphocytes # (Manual) D-Dimer ABG pH POC ABG pCO2 POC ABG pO2 ABG pO2 ABG HCO3 ABG O2 Saturation ABG Base Excess ABG Oxyhemoglobin ABG Sodium ABG Chloride ABG Glucose Oxyhemoglobin Carboxyhemoglobin Sodium Potassium Chloride Carbon Dioxide BUN Creatinine Glucose POC Glucose 135 H 139 H 130 H Hemoglobin A1c Magnesium Ferritin AST ALT Alkaline Phosphatase Lactate Dehydrogenase C-Reactive Protein Total Protein Albumin Arterial Blood Glucose Coronavirus (PCR) 07/19/21 07/19/21 07/19/21 06:55 06:55 07:54 WBC 14.5 H MCV MCH MCHC RDW 17.3 H Lymph % (Auto) 9.6 L [place] % (Auto) Eos % (Auto) Lymph # (Auto) [place] # (Auto) Eos # (Auto) 0.6 H Baso # (Auto) Seg Neutrophils % 80.3 H Seg Neuts % (Manual) Lymphocytes % (Manual) Seg Neutrophils # 11.7 H Seg Neutrophils # Man Lymphocytes # (Manual) D-Dimer ABG pH POC ABG pCO2 67.9 H POC ABG pO2 131.0 H ABG pO2 ABG HCO3 ABG O2 Saturation ABG Base Excess ABG Oxyhemoglobin ABG Sodium ABG Chloride 97.0 L ABG Glucose 133 H Oxyhemoglobin Carboxyhemoglobin Sodium Potassium Chloride 95.3 L Carbon Dioxide 35 H BUN Creatinine < 0.2 L Glucose 138 H POC Glucose Hemoglobin A1c Magnesium Ferritin AST ALT Alkaline Phosphatase Lactate Dehydrogenase C-Reactive Protein Total Protein Albumin Arterial Blood Glucose 133 H Coronavirus (PCR) 07/19/21 07/19/21 07/19/21 08:10 11:43 17:04 WBC MCV MCH MCHC RDW Lymph % (Auto) [place] % (Auto) Eos % (Auto) Lymph # (Auto) [place] # (Auto) Eos # (Auto) Baso # (Auto) Seg Neutrophils % Seg Neuts % (Manual) Lymphocytes % (Manual) Seg Neutrophils # Seg Neutrophils # Man Lymphocytes # (Manual) D-Dimer ABG pH POC ABG pCO2 POC ABG pO2 ABG pO2 ABG HCO3 ABG O2 Saturation ABG Base Excess ABG Oxyhemoglobin ABG Sodium ABG Chloride ABG Glucose Oxyhemoglobin Carboxyhemoglobin Sodium Potassium Chloride Carbon Dioxide BUN Creatinine Glucose POC Glucose 129 H 126 H 108 H Hemoglobin A1c Magnesium Ferritin AST ALT Alkaline Phosphatase Lactate Dehydrogenase C-Reactive Protein Total Protein Albumin Arterial Blood Glucose Coronavirus (PCR) 07/19/21 07/20/21 07/20/21 21:10 04:00 04:00 WBC MCV MCH MCHC RDW 17.0 H Lymph % (Auto) [place] % (Auto) 8.9 H Eos % (Auto) 6.3 H Lymph # (Auto) [place] # (Auto) 0.9 H Eos # (Auto) 0.6 H Baso # (Auto) Seg Neutrophils % 70.2 H Seg Neuts % (Manual) Lymphocytes % (Manual) Seg Neutrophils # Seg Neutrophils # Man Lymphocytes # (Manual) D-Dimer ABG pH POC ABG pCO2 POC ABG pO2 ABG pO2 ABG HCO3 ABG O2 Saturation ABG Base Excess ABG Oxyhemoglobin ABG Sodium ABG Chloride ABG Glucose Oxyhemoglobin Carboxyhemoglobin Sodium Potassium Chloride 96.7 L Carbon Dioxide 36 H BUN Creatinine 0.2 L Glucose 102 H POC Glucose 109 H Hemoglobin A1c Magnesium Ferritin AST ALT Alkaline Phosphatase Lactate Dehydrogenase C-Reactive Protein Total Protein Albumin 3.2 L Arterial Blood Glucose Coronavirus (PCR) 07/20/21 07/20/21 07/20/21 11:15 15:34 17:01 WBC MCV MCH MCHC RDW Lymph % (Auto) [place] % (Auto) Eos % (Auto) Lymph # (Auto) [place] # (Auto) Eos # (Auto) Baso # (Auto) Seg Neutrophils % Seg Neuts % (Manual) Lymphocytes % (Manual) Seg Neutrophils # Seg Neutrophils # Man Lymphocytes # (Manual) D-Dimer ABG pH POC ABG pCO2 POC ABG pO2 ABG pO2 ABG HCO3 ABG O2 Saturation ABG Base Excess ABG Oxyhemoglobin ABG Sodium ABG Chloride ABG Glucose Oxyhemoglobin Carboxyhemoglobin Sodium Potassium Chloride Carbon Dioxide BUN Creatinine Glucose POC Glucose 109 H 152 H 125 H Hemoglobin A1c Magnesium Ferritin AST ALT Alkaline Phosphatase Lactate Dehydrogenase C-Reactive Protein Total Protein Albumin Arterial Blood Glucose Coronavirus (PCR) 07/20/21 07/21/21 07/21/21 21:00 04:48 04:48 WBC 12.8 H MCV MCH MCHC RDW 16.8 H Lymph % (Auto) 9.3 L [place] % (Auto) Eos % (Auto) Lymph # (Auto) [place] # (Auto) 0.9 H Eos # (Auto) Baso # (Auto) Seg Neutrophils % 81.1 H Seg Neuts % (Manual) Lymphocytes % (Manual) Seg Neutrophils # 10.4 H Seg Neutrophils # Man Lymphocytes # (Manual) D-Dimer ABG pH POC ABG pCO2 POC ABG pO2 ABG pO2 ABG HCO3 ABG O2 Saturation ABG Base Excess ABG Oxyhemoglobin ABG Sodium ABG Chloride ABG Glucose Oxyhemoglobin Carboxyhemoglobin Sodium Potassium Chloride 95.4 L Carbon Dioxide 33 H BUN 6 L Creatinine < 0.2 L Glucose 155 H POC Glucose 211 H Hemoglobin A1c Magnesium 1.60 L Ferritin AST ALT Alkaline Phosphatase Lactate Dehydrogenase C-Reactive Protein Total Protein Albumin Arterial Blood Glucose Coronavirus (PCR) 07/21/21 07/21/21 07/21/21 07:52 11:05 17:01 WBC MCV MCH MCHC RDW Lymph % (Auto) [place] % (Auto) Eos % (Auto) Lymph # (Auto) [place] # (Auto) Eos # (Auto) Baso # (Auto) Seg Neutrophils % Seg Neuts % (Manual) Lymphocytes % (Manual) Seg Neutrophils # Seg Neutrophils # Man Lymphocytes # (Manual) D-Dimer ABG pH POC ABG pCO2 POC ABG pO2 ABG pO2 ABG HCO3 ABG O2 Saturation ABG Base Excess ABG Oxyhemoglobin ABG Sodium ABG Chloride ABG Glucose Oxyhemoglobin Carboxyhemoglobin Sodium Potassium Chloride Carbon Dioxide BUN Creatinine Glucose POC Glucose 116 H 207 H 133 H Hemoglobin A1c Magnesium Ferritin AST ALT Alkaline Phosphatase Lactate Dehydrogenase C-Reactive Protein Total Protein Albumin Arterial Blood Glucose Coronavirus (PCR) 07/21/21 07/22/21 07/22/21 21:17 07:55 07:55 WBC MCV MCH MCHC RDW 16.5 H Lymph % (Auto) [place] % (Auto) 8.6 H Eos % (Auto) Lymph # (Auto) [place] # (Auto) Eos # (Auto) Baso # (Auto) Seg Neutrophils % 72.3 H Seg Neuts % (Manual) Lymphocytes % (Manual) Seg Neutrophils # Seg Neutrophils # Man Lymphocytes # (Manual) D-Dimer ABG pH POC ABG pCO2 POC ABG pO2 ABG pO2 ABG HCO3 ABG O2 Saturation ABG Base Excess ABG Oxyhemoglobin ABG Sodium ABG Chloride ABG Glucose Oxyhemoglobin Carboxyhemoglobin Sodium Potassium Chloride 94.6 L Carbon Dioxide 42 H* D BUN 5 L Creatinine < 0.2 L Glucose POC Glucose 152 H Hemoglobin A1c Magnesium Ferritin AST ALT Alkaline Phosphatase Lactate Dehydrogenase C-Reactive Protein Total Protein Albumin Arterial Blood Glucose Coronavirus (PCR) 07/22/21 07/22/21 07/22/21 11:25 12:05 15:40 WBC MCV MCH MCHC RDW Lymph % (Auto) [place] % (Auto) Eos % (Auto) Lymph # (Auto) [place] # (Auto) Eos # (Auto) Baso # (Auto) Seg Neutrophils % Seg Neuts % (Manual) Lymphocytes % (Manual) Seg Neutrophils # Seg Neutrophils # Man Lymphocytes # (Manual) D-Dimer ABG pH 7.338 L POC ABG pCO2 POC ABG pO2 ABG pO2 66.1 L ABG HCO3 45.0 H ABG O2 Saturation 94.2 L ABG Base Excess 15.2 H ABG Oxyhemoglobin ABG Sodium ABG Chloride ABG Glucose Oxyhemoglobin 91.9 L Carboxyhemoglobin Sodium Potassium Chloride Carbon Dioxide BUN Creatinine Glucose POC Glucose 146 H 219 H Hemoglobin A1c Magnesium Ferritin AST ALT Alkaline Phosphatase Lactate Dehydrogenase C-Reactive Protein Total Protein Albumin Arterial Blood Glucose Coronavirus (PCR) 07/22/21 07/23/21 07/23/21 21:26 04:35 04:35 WBC MCV 98 H MCH MCHC RDW 16.2 H Lymph % (Auto) 7.9 L [place] % (Auto) Eos % (Auto) Lymph # (Auto) 0.9 L [place] # (Auto) Eos # (Auto) Baso # (Auto) Seg Neutrophils % 85.3 H Seg Neuts % (Manual) Lymphocytes % (Manual) Seg Neutrophils # 9.2 H Seg Neutrophils # Man Lymphocytes # (Manual) D-Dimer ABG pH POC ABG pCO2 POC ABG pO2 ABG pO2 ABG HCO3 ABG O2 Saturation ABG Base Excess ABG Oxyhemoglobin ABG Sodium ABG Chloride ABG Glucose Oxyhemoglobin Carboxyhemoglobin Sodium Potassium Chloride 93.9 L Carbon Dioxide 44 H* BUN Creatinine < 0.2 L Glucose 149 H POC Glucose 131 H Hemoglobin A1c Magnesium Ferritin AST ALT Alkaline Phosphatase Lactate Dehydrogenase C-Reactive Protein Total Protein Albumin Arterial Blood Glucose Coronavirus (PCR) 07/23/21 07/23/21 07/23/21 07:20 11:34 16:11 WBC MCV MCH MCHC RDW Lymph % (Auto) [place] % (Auto) Eos % (Auto) Lymph # (Auto) [place] # (Auto) Eos # (Auto) Baso # (Auto) Seg Neutrophils % Seg Neuts % (Manual) Lymphocytes % (Manual) Seg Neutrophils # Seg Neutrophils # Man Lymphocytes # (Manual) D-Dimer ABG pH POC ABG pCO2 POC ABG pO2 ABG pO2 ABG HCO3 ABG O2 Saturation ABG Base Excess ABG Oxyhemoglobin ABG Sodium ABG Chloride ABG Glucose Oxyhemoglobin Carboxyhemoglobin Sodium Potassium Chloride Carbon Dioxide BUN Creatinine Glucose POC Glucose 116 H 172 H 110 H Hemoglobin A1c Magnesium Ferritin AST ALT Alkaline Phosphatase Lactate Dehydrogenase C-Reactive Protein Total Protein Albumin Arterial Blood Glucose Coronavirus (PCR) 07/23/21 07/23/21 07/24/21 18:11 21:33 04:10 WBC MCV MCH MCHC RDW Lymph % (Auto) [place] % (Auto) Eos % (Auto) Lymph # (Auto) [place] # (Auto) Eos # (Auto) Baso # (Auto) Seg Neutrophils % Seg Neuts % (Manual) Lymphocytes % (Manual) Seg Neutrophils # Seg Neutrophils # Man Lymphocytes # (Manual) D-Dimer ABG pH POC ABG pCO2 78.3 H POC ABG pO2 80.7 L ABG pO2 ABG HCO3 ABG O2 Saturation ABG Base Excess ABG Oxyhemoglobin ABG Sodium 134.9 L ABG Chloride 89.0 L ABG Glucose 200 H Oxyhemoglobin Carboxyhemoglobin Sodium Potassium 3.5 L D Chloride 92.4 L Carbon Dioxide 42 H* BUN Creatinine < 0.2 L Glucose 123 H POC Glucose 108 H Hemoglobin A1c Magnesium Ferritin AST ALT Alkaline Phosphatase Lactate Dehydrogenase C-Reactive Protein Total Protein Albumin Arterial Blood Glucose 200 H Coronavirus (PCR) 07/24/21 07/24/21 07/24/21 11:01 16:56 22:06 WBC MCV MCH MCHC RDW Lymph % (Auto) [place] % (Auto) Eos % (Auto) Lymph # (Auto) [place] # (Auto) Eos # (Auto) Baso # (Auto) Seg Neutrophils % Seg Neuts % (Manual) Lymphocytes % (Manual) Seg Neutrophils # Seg Neutrophils # Man Lymphocytes # (Manual) D-Dimer ABG pH POC ABG pCO2 POC ABG pO2 ABG pO2 ABG HCO3 ABG O2 Saturation ABG Base Excess ABG Oxyhemoglobin ABG Sodium ABG Chloride ABG Glucose Oxyhemoglobin Carboxyhemoglobin Sodium Potassium Chloride Carbon Dioxide BUN Creatinine Glucose POC Glucose 171 H 111 H 136 H Hemoglobin A1c Magnesium Ferritin AST ALT Alkaline Phosphatase Lactate Dehydrogenase C-Reactive Protein Total Protein Albumin Arterial Blood Glucose Coronavirus (PCR) 07/25/21 07/25/21 07/25/21 07:40 10:59 11:58 WBC MCV MCH MCHC RDW Lymph % (Auto) [place] % (Auto) Eos % (Auto) Lymph # (Auto) [place] # (Auto) Eos # (Auto) Baso # (Auto) Seg Neutrophils % Seg Neuts % (Manual) Lymphocytes % (Manual) Seg Neutrophils # Seg Neutrophils # Man Lymphocytes # (Manual) D-Dimer ABG pH POC ABG pCO2 POC ABG pO2 ABG pO2 ABG HCO3 ABG O2 Saturation ABG Base Excess ABG Oxyhemoglobin ABG Sodium ABG Chloride ABG Glucose Oxyhemoglobin Carboxyhemoglobin Sodium Potassium Chloride 88.6 L Carbon Dioxide 43 H* BUN Creatinine 0.2 L Glucose 180 H POC Glucose 120 H 153 H Hemoglobin A1c Magnesium Ferritin AST ALT Alkaline Phosphatase Lactate Dehydrogenase C-Reactive Protein Total Protein Albumin Arterial Blood Glucose Coronavirus (PCR) 07/25/21 16:03 WBC MCV MCH MCHC RDW Lymph % (Auto) [place] % (Auto) Eos % (Auto) Lymph # (Auto) [place] # (Auto) Eos # (Auto) Baso # (Auto) Seg Neutrophils % Seg Neuts % (Manual) Lymphocytes % (Manual) Seg Neutrophils # Seg Neutrophils # Man Lymphocytes # (Manual) D-Dimer ABG pH POC ABG pCO2 POC ABG pO2 ABG pO2 ABG HCO3 ABG O2 Saturation ABG Base Excess ABG Oxyhemoglobin ABG Sodium ABG Chloride ABG Glucose Oxyhemoglobin Carboxyhemoglobin Sodium Potassium Chloride Carbon Dioxide BUN Creatinine Glucose POC Glucose 143 H Hemoglobin A1c Magnesium Ferritin AST ALT Alkaline Phosphatase Lactate Dehydrogenase C-Reactive Protein Total Protein Albumin Arterial Blood Glucose Coronavirus (PCR) Chest x-ray: report reviewed, image reviewed CT scan - chest: report reviewed, image reviewed
[2021-07-25] MEDS: ENOXAPARIN 40 MG/0.4 ML INJ SUB-Q SCH (22:00)
--- NOTE | 2021-07-26 08:13 | Progress Note ---
Assessment and Plan Assessment and plan: #Acute hypoxic/hypercapneic respiratory failure #Severe ARDS -Currently on high flow nasal cannula, improving currently on 80% FIO2 -BiPAP at night as tolerated -Low threshold for intubation as patient is persistently tachypneic and tachycardic -s/p prednisone taper -Pulmonology following, assistance appreciated -encouraged prone positioning; patient has been poorly tolerating it overnight #Metabolic alkalosis -stable -Patient received multiple doses of Lasix over course of hospital stay but may be 2/2 to compensation for hypercapneia #Heart failure with preserved ejection fraction -TTE: LVEF 55-60% with diastolic dysfunction -will continue to monitor for signs of fluid overload #COVID-19 infection -Continue Covid vitamins #Type 2 diabetes -continue Lantus 15 units daily and sliding scale insulin #Dysuria #Possible UTI -s/p levaquin #Anxiety -Stable -decreased xanax dose at patients request #DVT prophylaxis -Lovenox 40 daily #Deconditioning -Will benefit from SNF after prolonged hospital stay Resolved issues #Sepsis secondary to COVID-19 #Iatrogenic diarrhea #Hypomagnesemia #Hyponatremia #Protein calorie malnutrition Disposition Plan: Continue medical management Total Time Spent with Patient (Minutes): 20 minutes History Interval history: No acute events overnight. On HFNC 40/80%. No complaints at this time. Hospitalist Physical - Physical exam Narrative exam: GENERAL: Well-developed well-nourished. Lying in bed in no acute distress. HEENT: High flow nasal cannula at 40L/80% CHEST/LUNGS: Coarse breath sounds bilaterally. HEART/CARDIOVASCULAR: Tachycardic. No murmur, rubs or gallops appreciated. ABDOMEN: +BS. NT/ND. PSYCH: Cooperative. - Constitutional Vitals: Temp Pulse Resp BP Pulse Ox 98.2 F 99 H 22 111/70 98 07/26/21 04:00 07/26/21 06:00 07/26/21 06:00 07/26/21 06:00 07/26/21 06:00 General appearance: Present: no acute distress, well-nourished, obese, other (Looks tired) Results - Labs CBC & Chem 7: 07/23/21 04:35 07/26/21 09:56 Labs: Laboratory Last Values WBC 10.8 K/mm3 (4.5-11.0) 07/23/21 04:35 RBC 3.84 M/mm3 (3.65-5.03) 07/23/21 04:35 Hgb 12.1 gm/dl (10.1-14.3) 07/23/21 04:35 Hct 37.6 % (30.3-42.9) 07/23/21 04:35 MCV 98 fl (79-97) H 07/23/21 04:35 MCH 32 pg (28-32) 07/23/21 04:35 MCHC 32 % (30-34) 07/23/21 04:35 RDW 16.2 % (13.2-15.2) H 07/23/21 04:35 Plt Count 367 K/mm3 (140-440) 07/23/21 04:35 Lymph % (Auto) 7.9 % (13.4-35.0) L 07/23/21 04:35 [place] % (Auto) 5.6 % (0.0-7.3) 07/23/21 04:35 Eos % (Auto) 0.8 % (0.0-4.3) 07/23/21 04:35 Baso % (Auto) 0.4 % (0.0-1.8) 07/23/21 04:35 Lymph # (Auto) 0.9 K/mm3 (1.2-5.4) L 07/23/21 04:35 [place] # (Auto) 0.6 K/mm3 (0.0-0.8) 07/23/21 04:35 Eos # (Auto) 0.1 K/mm3 (0.0-0.4) 07/23/21 04:35 Baso # (Auto) 0.0 K/mm3 (0.0-0.1) 07/23/21 04:35 Add Manual Diff Complete 07/09/21 04:45 Total Counted 100 07/09/21 04:45 Seg Neutrophils % 85.3 % (40.0-70.0) H 07/23/21 04:35 Seg Neuts % (Manual) 82.0 % (40.0-70.0) H 07/09/21 04:45 Band Neutrophils % 1.0 % 05/12/21 04:05 Lymphocytes % (Manual) 13.0 % (13.4-35.0) L 07/09/21 04:45 Monocytes % (Manual) 3.0 % (0.0-7.3) 07/09/21 04:45 Eosinophils % (Manual) 2.0 % (0.0-4.3) 07/09/21 04:45 Nucleated RBC % Not Reportable 07/09/21 04:45 Seg Neutrophils # 9.2 K/mm3 (1.8-7.7) H 07/23/21 04:35 Seg Neutrophils # Man 7.8 K/mm3 (1.8-7.7) H 07/09/21 04:45 Band Neutrophils # 0.0 K/mm3 07/09/21 04:45 Lymphocytes # (Manual) 1.2 K/mm3 (1.2-5.4) 07/09/21 04:45 Abs React Lymphs (Man) 0.0 K/mm3 07/09/21 04:45 Monocytes # (Manual) 0.3 K/mm3 (0.0-0.8) 07/09/21 04:45 Eosinophils # (Manual) 0.2 K/mm3 (0.0-0.4) 07/09/21 04:45 Basophils # (Manual) 0.0 K/mm3 (0.0-0.1) 07/09/21 04:45 Metamyelocytes # 0.0 K/mm3 07/09/21 04:45 Myelocytes # 0.0 K/mm3 07/09/21 04:45 Promyelocytes # 0.0 K/mm3 07/09/21 04:45 Blast Cells # 0.0 K/mm3 07/09/21 04:45 WBC Morphology Not Reportable 07/09/21 04:45 Hypersegmented Neuts Not Reportable 07/09/21 04:45 Hyposegmented Neuts Not Reportable 07/09/21 04:45 Hypogranular Neuts Not Reportable 07/09/21 04:45 Smudge Cells Not Reportable 07/09/21 04:45 Toxic Granulation Not Reportable 07/09/21 04:45 Toxic Vacuolation Not Reportable 07/09/21 04:45 Dohle Bodies Not Reportable 07/09/21 04:45 Pelger-Huet Anomaly Not Reportable 07/09/21 04:45 Janelle Rods Not Reportable 07/09/21 04:45 Platelet Estimate Consistent w auto 07/09/21 04:45 Clumped Platelets Not Reportable 07/09/21 04:45 Plt Clumps, EDTA Not Reportable 07/09/21 04:45 Large Platelets Not Reportable 07/09/21 04:45 Giant Platelets Rare 07/09/21 04:45 Platelet Satelliting Not Reportable 07/09/21 04:45 Plt Morphology Comment Not Reportable 07/09/21 04:45 RBC Morphology Not Reportable 07/09/21 04:45 Dimorphic RBCs Not Reportable 07/09/21 04:45 Polychromasia Not Reportable 07/09/21 04:45 Hypochromasia Few 07/09/21 04:45 Poikilocytosis Not Reportable 07/09/21 04:45 Anisocytosis Not Reportable 07/09/21 04:45 Microcytosis Not Reportable 07/09/21 04:45 Macrocytosis Not Reportable 07/09/21 04:45 Spherocytes Not Reportable 07/09/21 04:45 Pappenheimer Bodies Not Reportable 07/09/21 04:45 Sickle Cells Not Reportable 07/09/21 04:45 Target Cells Not Reportable 07/09/21 04:45 Tear Drop Cells Not Reportable 07/09/21 04:45 Ovalocytes Not Reportable 07/09/21 04:45 Stomatocytes 1+ 07/09/21 04:45 Helmet Cells Not Reportable 07/09/21 04:45 Ahuja-[place] Bodies Not Reportable 07/09/21 04:45 [place] Rings Not Reportable 07/09/21 04:45 [place] Cells Not Reportable 07/09/21 04:45 Bite Cells Not Reportable 07/09/21 04:45 Crenated Cell Not Reportable 07/09/21 04:45 Elliptocytes Not Reportable 07/09/21 04:45 Acanthocytes (Spur) Not Reportable 07/09/21 04:45 Rouleaux Not Reportable 07/09/21 04:45 Hemoglobin C Crystals Not Reportable 07/09/21 04:45 Schistocytes Not Reportable 07/09/21 04:45 Malaria parasites Not Reportable 07/09/21 04:45 Justin Bodies Not Reportable 07/09/21 04:45 Hem Pathologist Commnt No 07/09/21 04:45 D-Dimer 638.35 ng/mlDDU (0-234) H 07/09/21 04:45 ABG pH 7.417 (7.320-7.450) 07/23/21 18:11 POC ABG pCO2 78.3 mmHg (32.0-48.0) H 07/23/21 18:11 ABG pCO2 85.7 mm Hg 07/22/21 12:05 POC ABG pO2 80.7 mmHg (83-108) L 07/23/21 18:11 ABG pO2 66.1 mm Hg (80.0-90.0) L 07/22/21 12:05 POC ABG HCO3 49.3 07/23/21 18:11 ABG HCO3 45.0 mmol/L (20.0-26.0) H 07/22/21 12:05 ABG O2 Saturation 96.7 (0-100) 07/23/21 18:11 ABG O2 Content 16.8 (0.0-44) 07/22/21 12:05 POC ABG Base Excess 20.5 07/23/21 18:11 ABG Base Excess 15.2 mmol/L (-2.0-3.0) H 07/22/21 12:05 ABG Hemoglobin 12.6 (12.0-17.5) 07/23/21 18:11 ABG Oxyhemoglobin 95.7 (94-98) 07/23/21 18:11 ABG Carboxyhemoglobin 1.9 % (0.0-5.0) 07/22/21 12:05 ABG Methemoglobin 0.3 (0.0-1.5) 07/23/21 18:11 ABG Sodium 134.9 mmol/L (136.0-145.0) L 07/23/21 18:11 ABG Potassium 3.9 mmol/L (3.40-4.50) 07/23/21 18:11 ABG Chloride 89.0 mmol/L (98-107) L 07/23/21 18:11 ABG Glucose 200 mg/dL (65-95) H 07/23/21 18:11 Oxyhemoglobin 91.9 % (95.0-99.0) L 07/22/21 12:05 Carboxyhemoglobin 0.7 (0.5-1.5) 07/23/21 18:11 FiO2 100 % 07/22/21 12:05 FiO2 % 100.0 07/23/21 18:11 Sodium 141 mmol/L (137-145) 07/25/21 10:59 Potassium 4.2 mmol/L (3.6-5.0) 07/25/21 10:59 Chloride 88.6 mmol/L (98-107) L 07/25/21 10:59 Carbon Dioxide 43 mmol/L (22-30) H* 07/25/21 10:59 Anion Gap 14 mmol/L 07/25/21 10:59 BUN 13 mg/dL (7-17) 07/25/21 10:59 Creatinine 0.2 mg/dL (0.6-1.2) L 07/25/21 10:59 Estimated GFR > 60 ml/min 07/25/21 10:59 BUN/Creatinine Ratio 65 % 07/25/21 10:59 Glucose 180 mg/dL (65-100) H 07/25/21 10:59 POC Glucose 133 mg/dL (70-105) H 07/25/21 20:18 Hemoglobin A1c 8.5 % (4-6) H 04/18/21 07:36 Calcium 9.4 mg/dL (8.4-10.2) 07/25/21 10:59 Phosphorus 3.70 mg/dL (2.5-4.5) 07/23/21 04:35 Magnesium 2.10 mg/dL (1.7-2.3) 07/23/21 04:35 Ferritin 155.9 ng/mL (10.0-200.0) 07/09/21 04:45 Total Bilirubin 0.20 mg/dL (0.1-1.2) 07/20/21 04:00 AST 18 units/L (5-40) 07/20/21 04:00 ALT 40 units/L (7-56) 07/20/21 04:00 Alkaline Phosphatase 70 units/L (35-129) 07/20/21 04:00 Lactate Dehydrogenase 475 units/L (91-180) H 06/05/21 05:26 C-Reactive Protein 4.30 mg/dL (0.00-1.30) H 07/09/21 04:45 NT-Pro-B Natriuret Pep 59.45 pg/mL (0-450) 07/07/21 13:40 Total Protein 7.1 g/dL (6.3-8.2) 07/20/21 04:00 Albumin 3.2 g/dL (3.9-5) L 07/20/21 04:00 Albumin/Globulin Ratio 0.8 % 07/20/21 04:00 Triglycerides < 9 mg/dL (2-149) 05/03/21 04:30 Procalcitonin < 0.05 ng/mL (<0.15) 05/23/21 09:50 Arterial Blood Glucose 200 mg/dL (65-95) H 07/23/21 18:11 Arterial Blood Ionized Calcium 4.6 mg/dL (4.6-5.3) 07/23/21 18:11 Coronavirus (PCR) Negative (Negative) 07/25/21 Unknown Amos/IV: Voiding Method External Female Catheter Active Medications - Current Medications Current Medications: Generic Name Dose Route Start Last Admin Trade Name Freq PRN Reason Stop Dose Admin Acetaminophen 650 mg 07/02/21 17:48 07/24/21 22:14 Acetaminophen 325 Mg Tab PO 650 mg Q4H PRN Administration Pain, Mild (1-3) Albuterol 2.5 mg 04/16/21 13:39 04/21/21 20:39 Albuterol 2.5 Mg/3 Ml Nebu IH 2.5 mg Q4HRT PRN Administration Shortness Of Breath Alprazolam 2 mg 07/04/21 12:00 07/25/21 21:00 Alprazolam 1 Mg Tab PO 2 mg BID TUTU Administration Calcium Carbonate/Glycine 500 mg 07/24/21 10:43 Calcium Carbonate 500 Mg Tab Chew PO BID PRN reflux Cholecalciferol 1,000 unit 04/17/21 10:00 07/25/21 10:48 Cholecalciferol (Vit D3) 1000 Unit (25 Mcg) Tab PO 1,000 unit QDAY TUTU Administration Enoxaparin Sodium 40 mg 05/19/21 22:00 07/25/21 22:00 Enoxaparin 40 Mg/0.4 Ml Inj SUB-Q 40 mg QDAY@2200 TUTU Administration Protocol Ibuprofen 600 mg 07/11/21 11:00 07/22/21 11:38 Ibuprofen 600 Mg Tab PO 600 mg Q6H PRN Administration Ear Pain Insulin Glargine 5 units 07/25/21 10:00 07/25/21 10:49 Insulin Glargine 100 Units/Ml SUB-Q 5 units DAILY TUTU Administration Insulin Human Lispro 0 unit 05/18/21 12:00 07/25/21 22:32 Insulin Lispro 100 Unit/Ml SUB-Q Not Given ACHS [facility] Protocol Ondansetron HCl 4 mg 04/16/21 14:00 05/30/21 10:07 Ondansetron 4 Mg/2 Ml Inj IV 4 mg Q8H PRN Administration Nausea And Vomiting Polyethylene Glycol 17 gm 07/16/21 20:00 Polyethylene Glycol 3350 17 Gm Powder PO QDAY PRN Constipation Sodium Chloride 10 ml 04/16/21 13:39 07/24/21 10:59 Sodium Chloride 0.9% 10 Ml Flush Syringe IV 10 ml PRN PRN Administration LINE FLUSH Zinc Sulfate 220 mg 04/16/21 22:00 07/25/21 21:55 Zinc Sulfate 220 Mg Cap PO 220 mg BID TUTU Administration Nutrition/Malnutrition Assess - Dietary Evaluation Nutrition/Malnutrition Findings: Nutrition Notes Start: 04/23/21 07:41 Freq: Status: Active Protocol: Document 07/03/21 16:54 GB (Rec: 07/03/21 17:11 GB [id number]) Nutrition Notes Initial or Follow up Reassessment Current Diagnosis Respiratory Failure Other Pertinent Diagnosis oral thrush, COVID-19 pneu Current Diet consistent carbohydrate Labs/Tests 07/03: creatinine 0.3, K 3.2 Pertinent Medications Vit C, Vit D3, D5 (PRN), Prednisone, NaCl, Zn Sulfate Height 4 ft 11.84 in Weight 60.3 kg [place] Body Weight (kg) 45.09 BMI 26.1 Weight change and time frame 04/16/21: 74.843kg 05/17/21: 68.1kg 06/16/21: 60.3kg change of -14.54kg for -19.43% in 60 days. Per MD note: pt has been diuresed thorughout stay. Weight Status Overweight Subjective/Other Information MD notes 07/03: pt showing improvement, prednisone weaning down, possible weaning of O2. Last BM: 07/02 PO intake recorded at 50-100% Percent of energy/protein needs met: PO intake of meals meet 75% or greater of EEN Burn Absent Trauma Absent GI Symptoms None Food Allergy No Skin Integrity/Comment skin tear rt/lt buttocks Current % PO Good (75-100%) Minimum of two criteria No #3 Nutrition Diagnosis No nutrition diagnosis at this time Etiology respiratory failure As Evidenced by Signs and Symptoms recovering, good po, weight loss r/t diurese therapy #2 Nutrition Diagnosis Malnutrition Comments: Wt loss due to diurese for most of stay. PO intake is recorded at 75- 100% Etiology acute illness As Evidenced by Signs and Symptoms <50% EER in >5 days, >5% wt loss in 1 month Diagnosis Progress(for reassessment Resolved documentation) #1 Nutrition Diagnosis Inadequate oral intake Etiology ARF As Evidenced by Signs and Symptoms pt continues to meet 100%/93% of kcal/protein needs Diagnosis Progress(for reassessment Resolved documentation) Is patient on ventilator? No Is Patient Ambulatory and/or Out of Bed Yes REE-([place]. Jeor-ambulatory/OOB) [ 1491.022 [id number]] Kcal/Kg value to use for calculation 25 Approximate Energy Requirements Using 1508 kcal/Kg Calculation Used for Recommendations Kcal/kg Additional Notes Pro needs 1-1.2g/kg @ 60k -72g/day Fluid needs 1ml/kcal or per MD Nutrition Intervention Change Diet Order: continue Nutrition Support: n/a Add Supplement/Snack (indicate name/kcal n/a /protein ) Goal #1 PO intake of meals to be 75% or greater daily for LOS Goal #2 Weight to stabilize +/-3% current weight for LOS Follow-Up By: 08/07/21 Additional Comments f/u: po intake, weight
--- NOTE | 2021-07-26 08:42 | Progress Note ---
Assessment and Plan - Patient Problems (1) Pneumonia due to SARS-associated coronavirus Current Visit: Yes Status: Acute (2) Acute hypoxemic respiratory failure Current Visit: Yes Status: Acute (3) Obesity hypoventilation syndrome Current Visit: Yes Status: Acute (4) Pneumonia Current Visit: Yes Status: Acute Qualifiers: Aspiration pneumonia type: unspecified Laterality: unspecified laterality Lung location: unspecified part of lung (5) Transaminitis Current Visit: No Status: Acute (6) Oral thrush Current Visit: Yes Status: Acute (7) Volume overload Current Visit: Yes Status: Acute Subjective Principal diagnosis: Covid-19 Interval history: on hiflo 80%. still sob Objective Vital Signs - 12hr 07/25/21 07/25/21 07/25/21 21:00 21:20 22:00 Temperature Pulse Rate 110 H 110 H Pulse Rate [ From Monitor] Respiratory 32 H 29 H Rate Blood Pressure 118/77 116/82 O2 Sat by Pulse 100 100 95 Oximetry 07/25/21 07/25/21 07/26/21 23:00 23:09 00:00 Temperature 99.2 F Pulse Rate 106 H 106 H 98 H Pulse Rate [ 94 H From Monitor] Respiratory 32 H 31 H 23 Rate Blood Pressure 121/76 116/74 128/76 O2 Sat by Pulse 100 100 100 Oximetry 07/26/21 07/26/21 07/26/21 01:00 02:00 03:00 Temperature Pulse Rate 104 H 98 H 98 H Pulse Rate [ From Monitor] Respiratory 24 27 H 26 H Rate Blood Pressure 121/68 106/68 116/73 O2 Sat by Pulse 99 98 99 Oximetry 07/26/21 07/26/21 07/26/21 04:00 05:00 06:00 Temperature 98.2 F Pulse Rate 99 H 101 H 99 H Pulse Rate [ 101 H From Monitor] Respiratory 26 H 30 H 22 Rate Blood Pressure 112/72 114/75 111/70 O2 Sat by Pulse 100 99 98 Oximetry 07/26/21 08:22 Temperature Pulse Rate Pulse Rate [ From Monitor] Respiratory Rate Blood Pressure O2 Sat by Pulse 98 Oximetry Constitutional: alert, other (on hiflo o2) Eyes: non-icteric ENT: oropharynx moist Neck: supple Effort: normal Ascultation: Bilateral: diminished breath sounds Cardiovascular: regular rate and rhythm Gastrointestinal: normoactive bowel sounds, soft, non-tender, non-distended Integumentary: normal Extremities: no cyanosis, no edema, pink and warm Neurologic: non-focal exam, pupils equal and round Psychiatric: mood appropriate, affect normal CBC and BMP: 07/23/21 04:35 07/25/21 10:59 ABG, PT/INR, D-dimer: ABG ABG pH 7.417 (7.320-7.450) 07/23/21 18:11 POC ABG pCO2 78.3 mmHg (32.0-48.0) H 07/23/21 18:11 ABG pCO2 85.7 mm Hg 07/22/21 12:05 POC ABG pO2 80.7 mmHg (83-108) L 07/23/21 18:11 ABG pO2 66.1 mm Hg (80.0-90.0) L 07/22/21 12:05 POC ABG HCO3 49.3 07/23/21 18:11 ABG O2 Saturation 96.7 (0-100) 07/23/21 18:11 PT/INR, D-dimer D-Dimer 638.35 ng/mlDDU (0-234) H 07/09/21 04:45 Abnormal lab findings: Abnormal Labs 04/16/21 04/16/21 04/16/21 11:42 11:42 11:42 WBC MCV MCH MCHC RDW 16.1 H Lymph % (Auto) 7.8 L [place] % (Auto) Eos % (Auto) Lymph # (Auto) 0.8 L [place] # (Auto) Eos # (Auto) Baso # (Auto) Seg Neutrophils % 87.7 H Seg Neuts % (Manual) Lymphocytes % (Manual) Seg Neutrophils # 8.5 H Seg Neutrophils # Man Lymphocytes # (Manual) D-Dimer 338.70 H ABG pH POC ABG pCO2 POC ABG pO2 ABG pO2 ABG HCO3 ABG O2 Saturation ABG Base Excess ABG Oxyhemoglobin ABG Sodium ABG Chloride ABG Glucose Oxyhemoglobin Carboxyhemoglobin Sodium Potassium Chloride Carbon Dioxide BUN Creatinine Glucose 194 H POC Glucose Hemoglobin A1c Magnesium Ferritin AST ALT Alkaline Phosphatase Lactate Dehydrogenase C-Reactive Protein Total Protein 8.4 H Albumin 3.8 L Arterial Blood Glucose Coronavirus (PCR) 04/16/21 04/16/21 04/17/21 11:42 11:42 03:50 WBC MCV MCH MCHC RDW 16.0 H Lymph % (Auto) 7.7 L [place] % (Auto) Eos % (Auto) Lymph # (Auto) 0.6 L [place] # (Auto) Eos # (Auto) Baso # (Auto) Seg Neutrophils % 89.8 H Seg Neuts % (Manual) Lymphocytes % (Manual) Seg Neutrophils # Seg Neutrophils # Man Lymphocytes # (Manual) D-Dimer ABG pH POC ABG pCO2 POC ABG pO2 ABG pO2 ABG HCO3 ABG O2 Saturation ABG Base Excess ABG Oxyhemoglobin ABG Sodium ABG Chloride ABG Glucose Oxyhemoglobin Carboxyhemoglobin Sodium Potassium Chloride Carbon Dioxide BUN Creatinine Glucose 195 H POC Glucose Hemoglobin A1c Magnesium Ferritin 254.3 H AST ALT Alkaline Phosphatase Lactate Dehydrogenase 359 H C-Reactive Protein 15.20 H Total Protein Albumin Arterial Blood Glucose Coronavirus (PCR) 04/17/21 04/17/21 04/17/21 03:50 08:26 08:26 WBC MCV MCH MCHC RDW Lymph % (Auto) [place] % (Auto) Eos % (Auto) Lymph # (Auto) [place] # (Auto) Eos # (Auto) Baso # (Auto) Seg Neutrophils % Seg Neuts % (Manual) Lymphocytes % (Manual) Seg Neutrophils # Seg Neutrophils # Man Lymphocytes # (Manual) D-Dimer 262.48 H ABG pH POC ABG pCO2 POC ABG pO2 ABG pO2 ABG HCO3 ABG O2 Saturation ABG Base Excess ABG Oxyhemoglobin ABG Sodium ABG Chloride ABG Glucose Oxyhemoglobin Carboxyhemoglobin Sodium Potassium Chloride Carbon Dioxide BUN 20 H Creatinine 0.5 L Glucose 249 H 225 H POC Glucose Hemoglobin A1c Magnesium Ferritin AST ALT Alkaline Phosphatase Lactate Dehydrogenase 338 H C-Reactive Protein 17.20 H Total Protein Albumin 3.2 L Arterial Blood Glucose Coronavirus (PCR) 04/17/21 04/17/21 04/17/21 08:26 15:04 Unknown WBC MCV MCH MCHC RDW Lymph % (Auto) [place] % (Auto) Eos % (Auto) Lymph # (Auto) [place] # (Auto) Eos # (Auto) Baso # (Auto) Seg Neutrophils % Seg Neuts % (Manual) Lymphocytes % (Manual) Seg Neutrophils # Seg Neutrophils # Man Lymphocytes # (Manual) D-Dimer ABG pH POC ABG pCO2 POC ABG pO2 ABG pO2 ABG HCO3 ABG O2 Saturation ABG Base Excess ABG Oxyhemoglobin ABG Sodium ABG Chloride ABG Glucose Oxyhemoglobin Carboxyhemoglobin Sodium Potassium Chloride Carbon Dioxide BUN 20 H Creatinine 0.5 L Glucose 246 H POC Glucose Hemoglobin A1c Magnesium Ferritin 392.0 H AST ALT Alkaline Phosphatase Lactate Dehydrogenase C-Reactive Protein Total Protein 8.3 H Albumin 3.1 L Arterial Blood Glucose Coronavirus (PCR) Positive A 04/18/21 04/18/21 04/18/21 05:06 05:06 07:36 WBC 11.6 H MCV MCH MCHC RDW 16.1 H Lymph % (Auto) [place] % (Auto) Eos % (Auto) Lymph # (Auto) [place] # (Auto) Eos # (Auto) Baso # (Auto) Seg Neutrophils % Seg Neuts % (Manual) Lymphocytes % (Manual) Seg Neutrophils # Seg Neutrophils # Man Lymphocytes # (Manual) D-Dimer ABG pH POC ABG pCO2 POC ABG pO2 ABG pO2 ABG HCO3 ABG O2 Saturation ABG Base Excess ABG Oxyhemoglobin ABG Sodium ABG Chloride ABG Glucose Oxyhemoglobin Carboxyhemoglobin Sodium Potassium 5.2 H Chloride Carbon Dioxide BUN 22 H Creatinine 0.5 L Glucose 315 H POC Glucose Hemoglobin A1c 8.5 H Magnesium Ferritin AST ALT Alkaline Phosphatase Lactate Dehydrogenase C-Reactive Protein Total Protein Albumin 3.3 L Arterial Blood Glucose Coronavirus (PCR) 04/18/21 04/18/21 04/18/21 11:59 16:43 23:24 WBC MCV MCH MCHC RDW Lymph % (Auto) [place] % (Auto) Eos % (Auto) Lymph # (Auto) [place] # (Auto) Eos # (Auto) Baso # (Auto) Seg Neutrophils % Seg Neuts % (Manual) Lymphocytes % (Manual) Seg Neutrophils # Seg Neutrophils # Man Lymphocytes # (Manual) D-Dimer ABG pH POC ABG pCO2 POC ABG pO2 ABG pO2 ABG HCO3 ABG O2 Saturation ABG Base Excess ABG Oxyhemoglobin ABG Sodium ABG Chloride ABG Glucose Oxyhemoglobin Carboxyhemoglobin Sodium Potassium Chloride Carbon Dioxide BUN Creatinine Glucose POC Glucose 284 H 273 H 290 H Hemoglobin A1c Magnesium Ferritin AST ALT Alkaline Phosphatase Lactate Dehydrogenase C-Reactive Protein Total Protein Albumin Arterial Blood Glucose Coronavirus (PCR) 04/19/21 04/19/21 04/19/21 04:19 04:19 08:10 WBC MCV MCH MCHC RDW 15.7 H Lymph % (Auto) [place] % (Auto) Eos % (Auto) Lymph # (Auto) [place] # (Auto) Eos # (Auto) Baso # (Auto) Seg Neutrophils % Seg Neuts % (Manual) Lymphocytes % (Manual) Seg Neutrophils # Seg Neutrophils # Man Lymphocytes # (Manual) D-Dimer ABG pH POC ABG pCO2 POC ABG pO2 ABG pO2 ABG HCO3 ABG O2 Saturation ABG Base Excess ABG Oxyhemoglobin ABG Sodium ABG Chloride ABG Glucose Oxyhemoglobin Carboxyhemoglobin Sodium Potassium Chloride Carbon Dioxide BUN 27 H Creatinine 0.4 L Glucose 184 H POC Glucose 194 H Hemoglobin A1c Magnesium Ferritin AST ALT Alkaline Phosphatase Lactate Dehydrogenase C-Reactive Protein Total Protein Albumin 3.1 L Arterial Blood Glucose Coronavirus (PCR) 04/19/21 04/19/21 04/19/21 11:38 16:25 22:04 WBC MCV MCH MCHC RDW Lymph % (Auto) [place] % (Auto) Eos % (Auto) Lymph # (Auto) [place] # (Auto) Eos # (Auto) Baso # (Auto) Seg Neutrophils % Seg Neuts % (Manual) Lymphocytes % (Manual) Seg Neutrophils # Seg Neutrophils # Man Lymphocytes # (Manual) D-Dimer ABG pH POC ABG pCO2 POC ABG pO2 ABG pO2 ABG HCO3 ABG O2 Saturation ABG Base Excess ABG Oxyhemoglobin ABG Sodium ABG Chloride ABG Glucose Oxyhemoglobin Carboxyhemoglobin Sodium Potassium Chloride Carbon Dioxide BUN Creatinine Glucose POC Glucose 224 H 297 H 251 H Hemoglobin A1c Magnesium Ferritin AST ALT Alkaline Phosphatase Lactate Dehydrogenase C-Reactive Protein Total Protein Albumin Arterial Blood Glucose Coronavirus (PCR) 04/20/21 04/20/21 04/20/21 05:28 08:43 16:21 WBC MCV MCH MCHC RDW Lymph % (Auto) [place] % (Auto) Eos % (Auto) Lymph # (Auto) [place] # (Auto) Eos # (Auto) Baso # (Auto) Seg Neutrophils % Seg Neuts % (Manual) Lymphocytes % (Manual) Seg Neutrophils # Seg Neutrophils # Man Lymphocytes # (Manual) D-Dimer ABG pH POC ABG pCO2 POC ABG pO2 ABG pO2 ABG HCO3 ABG O2 Saturation ABG Base Excess ABG Oxyhemoglobin ABG Sodium ABG Chloride ABG Glucose Oxyhemoglobin Carboxyhemoglobin Sodium Potassium Chloride Carbon Dioxide BUN 27 H Creatinine Glucose 192 H POC Glucose 173 H 253 H Hemoglobin A1c Magnesium Ferritin AST ALT Alkaline Phosphatase Lactate Dehydrogenase C-Reactive Protein Total Protein Albumin 3.0 L Arterial Blood Glucose Coronavirus (PCR) 04/21/21 04/21/21 04/21/21 07:58 12:05 16:08 WBC MCV MCH MCHC RDW Lymph % (Auto) [place] % (Auto) Eos % (Auto) Lymph # (Auto) [place] # (Auto) Eos # (Auto) Baso # (Auto) Seg Neutrophils % Seg Neuts % (Manual) Lymphocytes % (Manual) Seg Neutrophils # Seg Neutrophils # Man Lymphocytes # (Manual) D-Dimer ABG pH POC ABG pCO2 POC ABG pO2 ABG pO2 ABG HCO3 ABG O2 Saturation ABG Base Excess ABG Oxyhemoglobin ABG Sodium ABG Chloride ABG Glucose Oxyhemoglobin Carboxyhemoglobin Sodium Potassium Chloride Carbon Dioxide BUN Creatinine Glucose POC Glucose 140 H 252 H 214 H Hemoglobin A1c Magnesium Ferritin AST ALT Alkaline Phosphatase Lactate Dehydrogenase C-Reactive Protein Total Protein Albumin Arterial Blood Glucose Coronavirus (PCR) 04/21/21 04/22/21 04/22/21 21:42 08:37 12:01 WBC MCV MCH MCHC RDW Lymph % (Auto) [place] % (Auto) Eos % (Auto) Lymph # (Auto) [place] # (Auto) Eos # (Auto) Baso # (Auto) Seg Neutrophils % Seg Neuts % (Manual) Lymphocytes % (Manual) Seg Neutrophils # Seg Neutrophils # Man Lymphocytes # (Manual) D-Dimer ABG pH 7.457 H POC ABG pCO2 POC ABG pO2 49.4 L ABG pO2 ABG HCO3 ABG O2 Saturation ABG Base Excess ABG Oxyhemoglobin 85.6 L ABG Sodium ABG Chloride ABG Glucose 121 H Oxyhemoglobin Carboxyhemoglobin 0.3 L Sodium Potassium Chloride Carbon Dioxide BUN Creatinine Glucose POC Glucose 162 H 227 H Hemoglobin A1c Magnesium Ferritin AST ALT Alkaline Phosphatase Lactate Dehydrogenase C-Reactive Protein Total Protein Albumin Arterial Blood Glucose 121 H Coronavirus (PCR) 04/22/21 04/22/21 04/23/21 16:26 22:23 04:52 WBC MCV MCH MCHC RDW 15.7 H Lymph % (Auto) [place] % (Auto) Eos % (Auto) Lymph # (Auto) [place] # (Auto) Eos # (Auto) Baso # (Auto) Seg Neutrophils % Seg Neuts % (Manual) Lymphocytes % (Manual) Seg Neutrophils # Seg Neutrophils # Man Lymphocytes # (Manual) D-Dimer ABG pH POC ABG pCO2 POC ABG pO2 ABG pO2 ABG HCO3 ABG O2 Saturation ABG Base Excess ABG Oxyhemoglobin ABG Sodium ABG Chloride ABG Glucose Oxyhemoglobin Carboxyhemoglobin Sodium Potassium Chloride Carbon Dioxide BUN Creatinine Glucose POC Glucose 200 H 136 H Hemoglobin A1c Magnesium Ferritin AST ALT Alkaline Phosphatase Lactate Dehydrogenase C-Reactive Protein Total Protein Albumin Arterial Blood Glucose Coronavirus (PCR) 04/23/21 04/23/21 04/23/21 04:52 12:06 17:41 WBC MCV MCH MCHC RDW Lymph % (Auto) [place] % (Auto) Eos % (Auto) Lymph # (Auto) [place] # (Auto) Eos # (Auto) Baso # (Auto) Seg Neutrophils % Seg Neuts % (Manual) Lymphocytes % (Manual) Seg Neutrophils # Seg Neutrophils # Man Lymphocytes # (Manual) D-Dimer ABG pH POC ABG pCO2 POC ABG pO2 ABG pO2 ABG HCO3 ABG O2 Saturation ABG Base Excess ABG Oxyhemoglobin ABG Sodium ABG Chloride ABG Glucose Oxyhemoglobin Carboxyhemoglobin Sodium 136 L Potassium Chloride 97.7 L Carbon Dioxide BUN 23 H Creatinine Glucose 101 H POC Glucose 202 H 169 H Hemoglobin A1c Magnesium Ferritin AST 46 H ALT Alkaline Phosphatase Lactate Dehydrogenase C-Reactive Protein Total Protein Albumin 3.3 L Arterial Blood Glucose Coronavirus (PCR) 04/23/21 04/24/21 04/24/21 23:08 05:17 08:38 WBC MCV MCH MCHC RDW Lymph % (Auto) [place] % (Auto) Eos % (Auto) Lymph # (Auto) [place] # (Auto) Eos # (Auto) Baso # (Auto) Seg Neutrophils % Seg Neuts % (Manual) Lymphocytes % (Manual) Seg Neutrophils # Seg Neutrophils # Man Lymphocytes # (Manual) D-Dimer ABG pH POC ABG pCO2 POC ABG pO2 ABG pO2 ABG HCO3 ABG O2 Saturation ABG Base Excess ABG Oxyhemoglobin ABG Sodium ABG Chloride ABG Glucose Oxyhemoglobin Carboxyhemoglobin Sodium Potassium Chloride Carbon Dioxide BUN Creatinine Glucose POC Glucose 111 H 108 H 126 H Hemoglobin A1c Magnesium Ferritin AST ALT Alkaline Phosphatase Lactate Dehydrogenase C-Reactive Protein Total Protein Albumin Arterial Blood Glucose Coronavirus (PCR) 04/24/21 04/24/21 04/24/21 11:54 17:57 21:23 WBC MCV MCH MCHC RDW Lymph % (Auto) [place] % (Auto) Eos % (Auto) Lymph # (Auto) [place] # (Auto) Eos # (Auto) Baso # (Auto) Seg Neutrophils % Seg Neuts % (Manual) Lymphocytes % (Manual) Seg Neutrophils # Seg Neutrophils # Man Lymphocytes # (Manual) D-Dimer ABG pH POC ABG pCO2 POC ABG pO2 ABG pO2 ABG HCO3 ABG O2 Saturation ABG Base Excess ABG Oxyhemoglobin ABG Sodium ABG Chloride ABG Glucose Oxyhemoglobin Carboxyhemoglobin Sodium Potassium Chloride Carbon Dioxide BUN Creatinine Glucose POC Glucose 147 H 177 H 138 H Hemoglobin A1c Magnesium Ferritin AST ALT Alkaline Phosphatase Lactate Dehydrogenase C-Reactive Protein Total Protein Albumin Arterial Blood Glucose Coronavirus (PCR) 04/25/21 04/25/21 04/25/21 07:06 11:23 15:43 WBC MCV MCH MCHC RDW Lymph % (Auto) [place] % (Auto) Eos % (Auto) Lymph # (Auto) [place] # (Auto) Eos # (Auto) Baso # (Auto) Seg Neutrophils % Seg Neuts % (Manual) Lymphocytes % (Manual) Seg Neutrophils # Seg Neutrophils # Man Lymphocytes # (Manual) D-Dimer ABG pH POC ABG pCO2 POC ABG pO2 ABG pO2 ABG HCO3 ABG O2 Saturation ABG Base Excess ABG Oxyhemoglobin ABG Sodium ABG Chloride ABG Glucose Oxyhemoglobin Carboxyhemoglobin Sodium Potassium Chloride Carbon Dioxide BUN Creatinine Glucose POC Glucose 147 H 169 H 227 H Hemoglobin A1c Magnesium Ferritin AST ALT Alkaline Phosphatase Lactate Dehydrogenase C-Reactive Protein Total Protein Albumin Arterial Blood Glucose Coronavirus (PCR) 04/25/21 04/26/21 04/26/21 21:22 02:45 05:15 WBC MCV MCH MCHC RDW Lymph % (Auto) [place] % (Auto) Eos % (Auto) Lymph # (Auto) [place] # (Auto) Eos # (Auto) Baso # (Auto) Seg Neutrophils % Seg Neuts % (Manual) Lymphocytes % (Manual) Seg Neutrophils # Seg Neutrophils # Man Lymphocytes # (Manual) D-Dimer ABG pH POC ABG pCO2 POC ABG pO2 70.7 L ABG pO2 ABG HCO3 ABG O2 Saturation ABG Base Excess ABG Oxyhemoglobin 93.0 L ABG Sodium 132.7 L ABG Chloride ABG Glucose 115 H Oxyhemoglobin Carboxyhemoglobin Sodium Potassium Chloride 95.8 L Carbon Dioxide 32 H BUN 20 H Creatinine Glucose 102 H POC Glucose 196 H Hemoglobin A1c Magnesium Ferritin AST ALT Alkaline Phosphatase Lactate Dehydrogenase C-Reactive Protein Total Protein Albumin Arterial Blood Glucose 115 H Coronavirus (PCR) 04/26/21 04/26/21 04/26/21 11:49 16:09 21:07 WBC MCV MCH MCHC RDW Lymph % (Auto) [place] % (Auto) Eos % (Auto) Lymph # (Auto) [place] # (Auto) Eos # (Auto) Baso # (Auto) Seg Neutrophils % Seg Neuts % (Manual) Lymphocytes % (Manual) Seg Neutrophils # Seg Neutrophils # Man Lymphocytes # (Manual) D-Dimer ABG pH POC ABG pCO2 POC ABG pO2 ABG pO2 ABG HCO3 ABG O2 Saturation ABG Base Excess ABG Oxyhemoglobin ABG Sodium ABG Chloride ABG Glucose Oxyhemoglobin Carboxyhemoglobin Sodium Potassium Chloride Carbon Dioxide BUN Creatinine Glucose POC Glucose 114 H 188 H 136 H Hemoglobin A1c Magnesium Ferritin AST ALT Alkaline Phosphatase Lactate Dehydrogenase C-Reactive Protein Total Protein Albumin Arterial Blood Glucose Coronavirus (PCR) 04/27/21 04/27/21 04/28/21 17:34 22:12 08:26 WBC MCV MCH MCHC RDW Lymph % (Auto) [place] % (Auto) Eos % (Auto) Lymph # (Auto) [place] # (Auto) Eos # (Auto) Baso # (Auto) Seg Neutrophils % Seg Neuts % (Manual) Lymphocytes % (Manual) Seg Neutrophils # Seg Neutrophils # Man Lymphocytes # (Manual) D-Dimer ABG pH POC ABG pCO2 POC ABG pO2 ABG pO2 ABG HCO3 ABG O2 Saturation ABG Base Excess ABG Oxyhemoglobin ABG Sodium ABG Chloride ABG Glucose Oxyhemoglobin Carboxyhemoglobin Sodium Potassium Chloride Carbon Dioxide BUN Creatinine Glucose POC Glucose 128 H 159 H 69 L Hemoglobin A1c Magnesium Ferritin AST ALT Alkaline Phosphatase Lactate Dehydrogenase C-Reactive Protein Total Protein Albumin Arterial Blood Glucose Coronavirus (PCR) 04/28/21 04/28/21 04/29/21 12:22 21:11 06:05 WBC MCV MCH MCHC RDW Lymph % (Auto) [place] % (Auto) Eos % (Auto) Lymph # (Auto) [place] # (Auto) Eos # (Auto) Baso # (Auto) Seg Neutrophils % Seg Neuts % (Manual) Lymphocytes % (Manual) Seg Neutrophils # Seg Neutrophils # Man Lymphocytes # (Manual) D-Dimer ABG pH POC ABG pCO2 POC ABG pO2 ABG pO2 ABG HCO3 ABG O2 Saturation ABG Base Excess ABG Oxyhemoglobin ABG Sodium ABG Chloride ABG Glucose Oxyhemoglobin Carboxyhemoglobin Sodium 132 L Potassium Chloride 94.4 L Carbon Dioxide BUN Creatinine 0.2 L D Glucose 140 H POC Glucose 141 H 171 H Hemoglobin A1c Magnesium Ferritin AST ALT Alkaline Phosphatase Lactate Dehydrogenase C-Reactive Protein Total Protein Albumin Arterial Blood Glucose Coronavirus (PCR) 04/29/21 04/29/21 04/29/21 06:05 07:24 11:36 WBC MCV MCH MCHC 35 H RDW 15.9 H Lymph % (Auto) [place] % (Auto) Eos % (Auto) Lymph # (Auto) [place] # (Auto) Eos # (Auto) Baso # (Auto) Seg Neutrophils % Seg Neuts % (Manual) Lymphocytes % (Manual) Seg Neutrophils # Seg Neutrophils # Man Lymphocytes # (Manual) D-Dimer ABG pH POC ABG pCO2 POC ABG pO2 ABG pO2 ABG HCO3 ABG O2 Saturation ABG Base Excess ABG Oxyhemoglobin ABG Sodium ABG Chloride ABG Glucose Oxyhemoglobin Carboxyhemoglobin Sodium Potassium Chloride Carbon Dioxide BUN Creatinine Glucose POC Glucose 141 H 220 H Hemoglobin A1c Magnesium Ferritin AST ALT Alkaline Phosphatase Lactate Dehydrogenase C-Reactive Protein Total Protein Albumin Arterial Blood Glucose Coronavirus (PCR) 04/29/21 04/29/21 04/29/21 14:23 15:30 17:06 WBC MCV MCH MCHC RDW Lymph % (Auto) [place] % (Auto) Eos % (Auto) Lymph # (Auto) [place] # (Auto) Eos # (Auto) Baso # (Auto) Seg Neutrophils % Seg Neuts % (Manual) Lymphocytes % (Manual) Seg Neutrophils # Seg Neutrophils # Man Lymphocytes # (Manual) D-Dimer ABG pH POC ABG pCO2 POC ABG pO2 ABG pO2 52.6 L ABG HCO3 ABG O2 Saturation 86.4 L ABG Base Excess ABG Oxyhemoglobin ABG Sodium ABG Chloride ABG Glucose Oxyhemoglobin 84.6 L Carboxyhemoglobin Sodium Potassium Chloride Carbon Dioxide BUN Creatinine Glucose POC Glucose 173 H 158 H Hemoglobin A1c Magnesium Ferritin AST ALT Alkaline Phosphatase Lactate Dehydrogenase C-Reactive Protein Total Protein Albumin Arterial Blood Glucose Coronavirus (PCR) 04/29/21 04/30/21 04/30/21 21:27 07:16 08:00 WBC MCV MCH MCHC RDW 16.1 H Lymph % (Auto) [place] % (Auto) Eos % (Auto) Lymph # (Auto) [place] # (Auto) Eos # (Auto) Baso # (Auto) Seg Neutrophils % Seg Neuts % (Manual) Lymphocytes % (Manual) Seg Neutrophils # Seg Neutrophils # Man Lymphocytes # (Manual) D-Dimer ABG pH POC ABG pCO2 POC ABG pO2 ABG pO2 ABG HCO3 ABG O2 Saturation ABG Base Excess ABG Oxyhemoglobin ABG Sodium ABG Chloride ABG Glucose Oxyhemoglobin Carboxyhemoglobin Sodium Potassium Chloride Carbon Dioxide BUN Creatinine Glucose POC Glucose 244 H 175 H Hemoglobin A1c Magnesium Ferritin AST ALT Alkaline Phosphatase Lactate Dehydrogenase C-Reactive Protein Total Protein Albumin Arterial Blood Glucose Coronavirus (PCR) 04/30/21 04/30/21 04/30/21 08:00 08:00 11:03 WBC MCV MCH MCHC RDW Lymph % (Auto) [place] % (Auto) Eos % (Auto) Lymph # (Auto) [place] # (Auto) Eos # (Auto) Baso # (Auto) Seg Neutrophils % Seg Neuts % (Manual) Lymphocytes % (Manual) Seg Neutrophils # Seg Neutrophils # Man Lymphocytes # (Manual) D-Dimer 1796.87 H ABG pH POC ABG pCO2 POC ABG pO2 ABG pO2 ABG HCO3 ABG O2 Saturation ABG Base Excess ABG Oxyhemoglobin ABG Sodium ABG Chloride ABG Glucose Oxyhemoglobin Carboxyhemoglobin Sodium 135 L Potassium Chloride 96.3 L Carbon Dioxide BUN Creatinine 0.2 L Glucose 153 H POC Glucose 183 H Hemoglobin A1c Magnesium Ferritin AST 41 H ALT 76 H Alkaline Phosphatase 160 H Lactate Dehydrogenase 522 H C-Reactive Protein Total Protein 6.1 L Albumin 3.1 L Arterial Blood Glucose Coronavirus (PCR) 04/30/21 04/30/21 05/01/21 17:04 22:17 05:39 WBC MCV MCH MCHC RDW Lymph % (Auto) [place] % (Auto) Eos % (Auto) Lymph # (Auto) [place] # (Auto) Eos # (Auto) Baso # (Auto) Seg Neutrophils % Seg Neuts % (Manual) Lymphocytes % (Manual) Seg Neutrophils # Seg Neutrophils # Man Lymphocytes # (Manual) D-Dimer ABG pH POC ABG pCO2 POC ABG pO2 ABG pO2 ABG HCO3 ABG O2 Saturation ABG Base Excess ABG Oxyhemoglobin ABG Sodium ABG Chloride ABG Glucose Oxyhemoglobin Carboxyhemoglobin Sodium 133 L Potassium Chloride 92.1 L Carbon Dioxide BUN 24 H Creatinine 0.4 L D Glucose 269 H POC Glucose 167 H 208 H Hemoglobin A1c Magnesium Ferritin AST ALT 66 H Alkaline Phosphatase 142 H Lactate Dehydrogenase C-Reactive Protein Total Protein Albumin 3.2 L Arterial Blood Glucose Coronavirus (PCR) 05/01/21 05/01/21 05/01/21 05:39 05:39 07:45 WBC MCV MCH MCHC RDW 16.0 H Lymph % (Auto) [place] % (Auto) Eos % (Auto) Lymph # (Auto) [place] # (Auto) Eos # (Auto) Baso # (Auto) Seg Neutrophils % Seg Neuts % (Manual) Lymphocytes % (Manual) Seg Neutrophils # Seg Neutrophils # Man Lymphocytes # (Manual) D-Dimer 3984.95 H ABG pH POC ABG pCO2 POC ABG pO2 ABG pO2 ABG HCO3 ABG O2 Saturation ABG Base Excess ABG Oxyhemoglobin ABG Sodium ABG Chloride ABG Glucose Oxyhemoglobin Carboxyhemoglobin Sodium Potassium Chloride Carbon Dioxide BUN Creatinine Glucose POC Glucose 229 H Hemoglobin A1c Magnesium Ferritin AST ALT Alkaline Phosphatase Lactate Dehydrogenase C-Reactive Protein Total Protein Albumin Arterial Blood Glucose Coronavirus (PCR) 05/01/21 05/01/21 05/01/21 12:10 15:46 21:06 WBC MCV MCH MCHC RDW Lymph % (Auto) [place] % (Auto) Eos % (Auto) Lymph # (Auto) [place] # (Auto) Eos # (Auto) Baso # (Auto) Seg Neutrophils % Seg Neuts % (Manual) Lymphocytes % (Manual) Seg Neutrophils # Seg Neutrophils # Man Lymphocytes # (Manual) D-Dimer ABG pH POC ABG pCO2 POC ABG pO2 ABG pO2 ABG HCO3 ABG O2 Saturation ABG Base Excess ABG Oxyhemoglobin ABG Sodium ABG Chloride ABG Glucose Oxyhemoglobin Carboxyhemoglobin Sodium Potassium Chloride Carbon Dioxide BUN Creatinine Glucose POC Glucose 296 H 279 H 232 H Hemoglobin A1c Magnesium Ferritin AST ALT Alkaline Phosphatase Lactate Dehydrogenase C-Reactive Protein Total Protein Albumin Arterial Blood Glucose Coronavirus (PCR) 05/02/21 05/02/21 05/02/21 04:55 04:55 04:55 WBC MCV MCH MCHC RDW 16.1 H Lymph % (Auto) [place] % (Auto) Eos % (Auto) Lymph # (Auto) [place] # (Auto) Eos # (Auto) Baso # (Auto) Seg Neutrophils % Seg Neuts % (Manual) Lymphocytes % (Manual) Seg Neutrophils # Seg Neutrophils # Man Lymphocytes # (Manual) D-Dimer 1401.08 H ABG pH POC ABG pCO2 POC ABG pO2 ABG pO2 ABG HCO3 ABG O2 Saturation ABG Base Excess ABG Oxyhemoglobin ABG Sodium ABG Chloride ABG Glucose Oxyhemoglobin Carboxyhemoglobin Sodium 131 L Potassium Chloride 95.5 L Carbon Dioxide BUN 20 H Creatinine 0.3 L Glucose 288 H POC Glucose Hemoglobin A1c Magnesium Ferritin AST ALT Alkaline Phosphatase Lactate Dehydrogenase C-Reactive Protein Total Protein 6.0 L Albumin 3.1 L Arterial Blood Glucose Coronavirus (PCR) 05/02/21 05/02/21 05/02/21 07:53 11:45 15:25 WBC MCV MCH MCHC RDW Lymph % (Auto) [place] % (Auto) Eos % (Auto) Lymph # (Auto) [place] # (Auto) Eos # (Auto) Baso # (Auto) Seg Neutrophils % Seg Neuts % (Manual) Lymphocytes % (Manual) Seg Neutrophils # Seg Neutrophils # Man Lymphocytes # (Manual) D-Dimer ABG pH POC ABG pCO2 POC ABG pO2 ABG pO2 ABG HCO3 ABG O2 Saturation ABG Base Excess ABG Oxyhemoglobin ABG Sodium ABG Chloride ABG Glucose Oxyhemoglobin Carboxyhemoglobin Sodium Potassium Chloride Carbon Dioxide BUN Creatinine Glucose POC Glucose 180 H 228 H 275 H Hemoglobin A1c Magnesium Ferritin AST ALT Alkaline Phosphatase Lactate Dehydrogenase C-Reactive Protein Total Protein Albumin Arterial Blood Glucose Coronavirus (PCR) 05/02/21 05/03/21 05/03/21 22:56 04:30 04:49 WBC MCV MCH MCHC RDW Lymph % (Auto) [place] % (Auto) Eos % (Auto) Lymph # (Auto) [place] # (Auto) Eos # (Auto) Baso # (Auto) Seg Neutrophils % Seg Neuts % (Manual) Lymphocytes % (Manual) Seg Neutrophils # Seg Neutrophils # Man Lymphocytes # (Manual) D-Dimer ABG pH 7.229 L POC ABG pCO2 POC ABG pO2 65.3 L ABG pO2 ABG HCO3 ABG O2 Saturation ABG Base Excess ABG Oxyhemoglobin 87.8 L ABG Sodium 133.0 L ABG Chloride 97.0 L ABG Glucose 403 H Oxyhemoglobin Carboxyhemoglobin Sodium 130 L Potassium Chloride 94.9 L Carbon Dioxide BUN 20 H Creatinine 0.5 L D Glucose 359 H POC Glucose 293 H Hemoglobin A1c Magnesium Ferritin AST 54 H ALT 75 H Alkaline Phosphatase 138 H Lactate Dehydrogenase C-Reactive Protein Total Protein Albumin 3.6 L Arterial Blood Glucose 403 H Coronavirus (PCR) 05/03/21 05/03/21 05/03/21 05:27 11:26 17:57 WBC MCV MCH MCHC RDW Lymph % (Auto) [place] % (Auto) Eos % (Auto) Lymph # (Auto) [place] # (Auto) Eos # (Auto) Baso # (Auto) Seg Neutrophils % Seg Neuts % (Manual) Lymphocytes % (Manual) Seg Neutrophils # Seg Neutrophils # Man Lymphocytes # (Manual) D-Dimer ABG pH POC ABG pCO2 POC ABG pO2 ABG pO2 ABG HCO3 ABG O2 Saturation ABG Base Excess ABG Oxyhemoglobin ABG Sodium ABG Chloride ABG Glucose Oxyhemoglobin Carboxyhemoglobin Sodium Potassium Chloride Carbon Dioxide BUN Creatinine Glucose POC Glucose 361 H 297 H 226 H Hemoglobin A1c Magnesium Ferritin AST ALT Alkaline Phosphatase Lactate Dehydrogenase C-Reactive Protein Total Protein Albumin Arterial Blood Glucose Coronavirus (PCR) 05/03/21 05/04/21 05/04/21 23:12 05:12 07:30 WBC MCV MCH MCHC RDW Lymph % (Auto) [place] % (Auto) Eos % (Auto) Lymph # (Auto) [place] # (Auto) Eos # (Auto) Baso # (Auto) Seg Neutrophils % Seg Neuts % (Manual) Lymphocytes % (Manual) Seg Neutrophils # Seg Neutrophils # Man Lymphocytes # (Manual) D-Dimer ABG pH POC ABG pCO2 POC ABG pO2 ABG pO2 ABG HCO3 ABG O2 Saturation ABG Base Excess ABG Oxyhemoglobin ABG Sodium ABG Chloride ABG Glucose Oxyhemoglobin Carboxyhemoglobin Sodium Potassium Chloride Carbon Dioxide BUN Creatinine Glucose POC Glucose 282 H 285 H 254 H Hemoglobin A1c Magnesium Ferritin AST ALT Alkaline Phosphatase Lactate Dehydrogenase C-Reactive Protein Total Protein Albumin Arterial Blood Glucose Coronavirus (PCR) 05/04/21 05/04/21 05/04/21 08:58 11:45 16:07 WBC MCV MCH MCHC RDW Lymph % (Auto) [place] % (Auto) Eos % (Auto) Lymph # (Auto) [place] # (Auto) Eos # (Auto) Baso # (Auto) Seg Neutrophils % Seg Neuts % (Manual) Lymphocytes % (Manual) Seg Neutrophils # Seg Neutrophils # Man Lymphocytes # (Manual) D-Dimer ABG pH POC ABG pCO2 POC ABG pO2 ABG pO2 ABG HCO3 ABG O2 Saturation ABG Base Excess ABG Oxyhemoglobin ABG Sodium ABG Chloride ABG Glucose Oxyhemoglobin Carboxyhemoglobin Sodium 134 L Potassium Chloride Carbon Dioxide BUN 20 H Creatinine 0.3 L Glucose 267 H POC Glucose 244 H 297 H Hemoglobin A1c Magnesium Ferritin AST ALT Alkaline Phosphatase Lactate Dehydrogenase C-Reactive Protein Total Protein 6.0 L Albumin 3.2 L Arterial Blood Glucose Coronavirus (PCR) 05/04/21 05/05/21 05/05/21 23:32 05:00 05:13 WBC MCV MCH MCHC RDW Lymph % (Auto) [place] % (Auto) Eos % (Auto) Lymph # (Auto) [place] # (Auto) Eos # (Auto) Baso # (Auto) Seg Neutrophils % Seg Neuts % (Manual) Lymphocytes % (Manual) Seg Neutrophils # Seg Neutrophils # Man Lymphocytes # (Manual) D-Dimer ABG pH POC ABG pCO2 POC ABG pO2 ABG pO2 ABG HCO3 ABG O2 Saturation ABG Base Excess ABG Oxyhemoglobin ABG Sodium ABG Chloride ABG Glucose Oxyhemoglobin Carboxyhemoglobin Sodium 132 L Potassium Chloride 96.4 L Carbon Dioxide BUN 22 H Creatinine 0.3 L Glucose 228 H POC Glucose 154 H 260 H Hemoglobin A1c Magnesium Ferritin AST ALT 67 H Alkaline Phosphatase Lactate Dehydrogenase C-Reactive Protein Total Protein 6.1 L Albumin 3.2 L Arterial Blood Glucose Coronavirus (PCR) 05/05/21 05/05/21 05/05/21 11:32 17:49 23:07 WBC MCV MCH MCHC RDW Lymph % (Auto) [place] % (Auto) Eos % (Auto) Lymph # (Auto) [place] # (Auto) Eos # (Auto) Baso # (Auto) Seg Neutrophils % Seg Neuts % (Manual) Lymphocytes % (Manual) Seg Neutrophils # Seg Neutrophils # Man Lymphocytes # (Manual) D-Dimer ABG pH POC ABG pCO2 POC ABG pO2 ABG pO2 ABG HCO3 ABG O2 Saturation ABG Base Excess ABG Oxyhemoglobin ABG Sodium ABG Chloride ABG Glucose Oxyhemoglobin Carboxyhemoglobin Sodium Potassium Chloride Carbon Dioxide BUN Creatinine Glucose POC Glucose 279 H 308 H 213 H Hemoglobin A1c Magnesium Ferritin AST ALT Alkaline Phosphatase Lactate Dehydrogenase C-Reactive Protein Total Protein Albumin Arterial Blood Glucose Coronavirus (PCR) 05/06/21 05/06/21 05/06/21 05:00 05:00 05:20 WBC MCV MCH MCHC RDW 16.8 H Lymph % (Auto) [place] % (Auto) Eos % (Auto) Lymph # (Auto) [place] # (Auto) Eos # (Auto) Baso # (Auto) Seg Neutrophils % Seg Neuts % (Manual) 99.0 H Lymphocytes % (Manual) Seg Neutrophils # Seg Neutrophils # Man 10.9 H Lymphocytes # (Manual) 0.0 L D-Dimer ABG pH POC ABG pCO2 POC ABG pO2 ABG pO2 ABG HCO3 ABG O2 Saturation ABG Base Excess ABG Oxyhemoglobin ABG Sodium ABG Chloride ABG Glucose Oxyhemoglobin Carboxyhemoglobin Sodium 133 L Potassium Chloride Carbon Dioxide BUN 21 H Creatinine 0.3 L Glucose 259 H POC Glucose 308 H Hemoglobin A1c Magnesium Ferritin AST ALT Alkaline Phosphatase Lactate Dehydrogenase C-Reactive Protein Total Protein Albumin 3.2 L Arterial Blood Glucose Coronavirus (PCR) 05/06/21 05/06/21 05/06/21 11:24 17:54 21:32 WBC MCV MCH MCHC RDW Lymph % (Auto) [place] % (Auto) Eos % (Auto) Lymph # (Auto) [place] # (Auto) Eos # (Auto) Baso # (Auto) Seg Neutrophils % Seg Neuts % (Manual) Lymphocytes % (Manual) Seg Neutrophils # Seg Neutrophils # Man Lymphocytes # (Manual) D-Dimer ABG pH POC ABG pCO2 POC ABG pO2 ABG pO2 ABG HCO3 ABG O2 Saturation ABG Base Excess ABG Oxyhemoglobin ABG Sodium ABG Chloride ABG Glucose Oxyhemoglobin Carboxyhemoglobin Sodium Potassium Chloride Carbon Dioxide BUN Creatinine Glucose POC Glucose 262 H 124 H 246 H Hemoglobin A1c Magnesium Ferritin AST ALT Alkaline Phosphatase Lactate Dehydrogenase C-Reactive Protein Total Protein Albumin Arterial Blood Glucose Coronavirus (PCR) 05/06/21 05/07/21 05/07/21 23:10 04:54 04:54 WBC MCV MCH MCHC RDW Lymph % (Auto) [place] % (Auto) Eos % (Auto) Lymph # (Auto) [place] # (Auto) Eos # (Auto) Baso # (Auto) Seg Neutrophils % Seg Neuts % (Manual) Lymphocytes % (Manual) Seg Neutrophils # Seg Neutrophils # Man Lymphocytes # (Manual) D-Dimer 1609.28 H ABG pH POC ABG pCO2 POC ABG pO2 ABG pO2 ABG HCO3 ABG O2 Saturation ABG Base Excess ABG Oxyhemoglobin ABG Sodium ABG Chloride ABG Glucose Oxyhemoglobin Carboxyhemoglobin Sodium 136 L Potassium Chloride Carbon Dioxide BUN 23 H Creatinine 0.3 L Glucose 110 H POC Glucose 249 H Hemoglobin A1c Magnesium Ferritin AST ALT Alkaline Phosphatase Lactate Dehydrogenase C-Reactive Protein Total Protein 6.2 L Albumin 3.0 L Arterial Blood Glucose Coronavirus (PCR) 05/07/21 05/07/21 05/07/21 04:54 04:54 11:41 WBC MCV MCH MCHC RDW Lymph % (Auto) [place] % (Auto) Eos % (Auto) Lymph # (Auto) [place] # (Auto) Eos # (Auto) Baso # (Auto) Seg Neutrophils % Seg Neuts % (Manual) Lymphocytes % (Manual) Seg Neutrophils # Seg Neutrophils # Man Lymphocytes # (Manual) D-Dimer ABG pH POC ABG pCO2 POC ABG pO2 ABG pO2 ABG HCO3 ABG O2 Saturation ABG Base Excess ABG Oxyhemoglobin ABG Sodium ABG Chloride ABG Glucose Oxyhemoglobin Carboxyhemoglobin Sodium Potassium Chloride Carbon Dioxide BUN Creatinine Glucose POC Glucose 118 H Hemoglobin A1c Magnesium Ferritin 296.1 H AST ALT Alkaline Phosphatase Lactate Dehydrogenase 724 H C-Reactive Protein Total Protein Albumin Arterial Blood Glucose Coronavirus (PCR) 05/07/21 05/07/21 05/08/21 16:43 22:34 06:44 WBC MCV MCH MCHC RDW Lymph % (Auto) [place] % (Auto) Eos % (Auto) Lymph # (Auto) [place] # (Auto) Eos # (Auto) Baso # (Auto) Seg Neutrophils % Seg Neuts % (Manual) Lymphocytes % (Manual) Seg Neutrophils # Seg Neutrophils # Man Lymphocytes # (Manual) D-Dimer ABG pH POC ABG pCO2 POC ABG pO2 ABG pO2 ABG HCO3 ABG O2 Saturation ABG Base Excess ABG Oxyhemoglobin ABG Sodium ABG Chloride ABG Glucose Oxyhemoglobin Carboxyhemoglobin Sodium Potassium Chloride Carbon Dioxide BUN Creatinine Glucose POC Glucose 159 H 233 H 235 H Hemoglobin A1c Magnesium Ferritin AST ALT Alkaline Phosphatase Lactate Dehydrogenase C-Reactive Protein Total Protein Albumin Arterial Blood Glucose Coronavirus (PCR) 05/08/21 05/08/21 05/08/21 07:49 11:56 17:13 WBC MCV MCH MCHC RDW Lymph % (Auto) [place] % (Auto) Eos % (Auto) Lymph # (Auto) [place] # (Auto) Eos # (Auto) Baso # (Auto) Seg Neutrophils % Seg Neuts % (Manual) Lymphocytes % (Manual) Seg Neutrophils # Seg Neutrophils # Man Lymphocytes # (Manual) D-Dimer ABG pH POC ABG pCO2 POC ABG pO2 ABG pO2 ABG HCO3 ABG O2 Saturation ABG Base Excess ABG Oxyhemoglobin ABG Sodium ABG Chloride ABG Glucose Oxyhemoglobin Carboxyhemoglobin Sodium Potassium Chloride Carbon Dioxide BUN Creatinine Glucose POC Glucose 219 H 184 H 182 H Hemoglobin A1c Magnesium Ferritin AST ALT Alkaline Phosphatase Lactate Dehydrogenase C-Reactive Protein Total Protein Albumin Arterial Blood Glucose Coronavirus (PCR) 05/08/21 05/09/21 05/09/21 23:35 05:20 05:20 WBC MCV MCH MCHC RDW Lymph % (Auto) [place] % (Auto) Eos % (Auto) Lymph # (Auto) [place] # (Auto) Eos # (Auto) Baso # (Auto) Seg Neutrophils % Seg Neuts % (Manual) Lymphocytes % (Manual) Seg Neutrophils # Seg Neutrophils # Man Lymphocytes # (Manual) D-Dimer 1003.87 H ABG pH POC ABG pCO2 POC ABG pO2 ABG pO2 ABG HCO3 ABG O2 Saturation ABG Base Excess ABG Oxyhemoglobin ABG Sodium ABG Chloride ABG Glucose Oxyhemoglobin Carboxyhemoglobin Sodium Potassium Chloride Carbon Dioxide BUN Creatinine Glucose POC Glucose 198 H Hemoglobin A1c Magnesium Ferritin 378.7 H AST ALT Alkaline Phosphatase Lactate Dehydrogenase C-Reactive Protein Total Protein Albumin Arterial Blood Glucose Coronavirus (PCR) 05/09/21 05/09/21 05/09/21 05:20 06:04 12:53 WBC MCV MCH MCHC RDW Lymph % (Auto) [place] % (Auto) Eos % (Auto) Lymph # (Auto) [place] # (Auto) Eos # (Auto) Baso # (Auto) Seg Neutrophils % Seg Neuts % (Manual) Lymphocytes % (Manual) Seg Neutrophils # Seg Neutrophils # Man Lymphocytes # (Manual) D-Dimer ABG pH POC ABG pCO2 POC ABG pO2 ABG pO2 ABG HCO3 ABG O2 Saturation ABG Base Excess ABG Oxyhemoglobin ABG Sodium ABG Chloride ABG Glucose Oxyhemoglobin Carboxyhemoglobin Sodium Potassium Chloride Carbon Dioxide BUN Creatinine Glucose POC Glucose 159 H 180 H Hemoglobin A1c Magnesium Ferritin AST ALT Alkaline Phosphatase Lactate Dehydrogenase 558 H C-Reactive Protein 2.40 H Total Protein Albumin Arterial Blood Glucose Coronavirus (PCR) 05/09/21 05/09/21 05/10/21 16:43 21:27 10:18 WBC MCV MCH MCHC RDW Lymph % (Auto) [place] % (Auto) Eos % (Auto) Lymph # (Auto) [place] # (Auto) Eos # (Auto) Baso # (Auto) Seg Neutrophils % Seg Neuts % (Manual) Lymphocytes % (Manual) Seg Neutrophils # Seg Neutrophils # Man Lymphocytes # (Manual) D-Dimer ABG pH POC ABG pCO2 POC ABG pO2 ABG pO2 ABG HCO3 ABG O2 Saturation ABG Base Excess ABG Oxyhemoglobin ABG Sodium ABG Chloride ABG Glucose Oxyhemoglobin Carboxyhemoglobin Sodium Potassium Chloride Carbon Dioxide BUN Creatinine Glucose POC Glucose 212 H 285 H 261 H Hemoglobin A1c Magnesium Ferritin AST ALT Alkaline Phosphatase Lactate Dehydrogenase C-Reactive Protein Total Protein Albumin Arterial Blood Glucose Coronavirus (PCR) 05/10/21 05/10/21 05/11/21 17:58 18:02 00:29 WBC MCV MCH MCHC RDW Lymph % (Auto) [place] % (Auto) Eos % (Auto) Lymph # (Auto) [place] # (Auto) Eos # (Auto) Baso # (Auto) Seg Neutrophils % Seg Neuts % (Manual) Lymphocytes % (Manual) Seg Neutrophils # Seg Neutrophils # Man Lymphocytes # (Manual) D-Dimer ABG pH POC ABG pCO2 POC ABG pO2 ABG pO2 ABG HCO3 ABG O2 Saturation ABG Base Excess ABG Oxyhemoglobin ABG Sodium ABG Chloride ABG Glucose Oxyhemoglobin Carboxyhemoglobin Sodium Potassium Chloride Carbon Dioxide BUN Creatinine Glucose POC Glucose 213 H 179 H 149 H Hemoglobin A1c Magnesium Ferritin AST ALT Alkaline Phosphatase Lactate Dehydrogenase C-Reactive Protein Total Protein Albumin Arterial Blood Glucose Coronavirus (PCR) 05/11/21 05/11/21 05/11/21 05:22 11:32 17:00 WBC 14.9 H MCV MCH MCHC RDW 18.9 H Lymph % (Auto) 4.9 L [place] % (Auto) Eos % (Auto) Lymph # (Auto) 0.7 L [place] # (Auto) Eos # (Auto) Baso # (Auto) 0.2 H Seg Neutrophils % Seg Neuts % (Manual) Lymphocytes % (Manual) Seg Neutrophils # 13.3 H Seg Neutrophils # Man Lymphocytes # (Manual) D-Dimer ABG pH POC ABG pCO2 POC ABG pO2 ABG pO2 ABG HCO3 ABG O2 Saturation ABG Base Excess ABG Oxyhemoglobin ABG Sodium ABG Chloride ABG Glucose Oxyhemoglobin Carboxyhemoglobin Sodium Potassium Chloride Carbon Dioxide BUN Creatinine Glucose POC Glucose 162 H 179 H Hemoglobin A1c Magnesium Ferritin AST ALT Alkaline Phosphatase Lactate Dehydrogenase C-Reactive Protein Total Protein Albumin Arterial Blood Glucose Coronavirus (PCR) 05/11/21 05/11/21 05/11/21 17:00 17:33 22:03 WBC MCV MCH MCHC RDW Lymph % (Auto) [place] % (Auto) Eos % (Auto) Lymph # (Auto) [place] # (Auto) Eos # (Auto) Baso # (Auto) Seg Neutrophils % Seg Neuts % (Manual) Lymphocytes % (Manual) Seg Neutrophils # Seg Neutrophils # Man Lymphocytes # (Manual) D-Dimer ABG pH POC ABG pCO2 POC ABG pO2 ABG pO2 ABG HCO3 ABG O2 Saturation ABG Base Excess ABG Oxyhemoglobin ABG Sodium ABG Chloride ABG Glucose Oxyhemoglobin Carboxyhemoglobin Sodium 135 L Potassium Chloride 97.3 L Carbon Dioxide BUN 21 H Creatinine 0.3 L Glucose 133 H POC Glucose 140 H 282 H Hemoglobin A1c Magnesium Ferritin AST ALT 60 H Alkaline Phosphatase Lactate Dehydrogenase C-Reactive Protein Total Protein Albumin 3.1 L Arterial Blood Glucose Coronavirus (PCR) 05/12/21 05/12/21 05/12/21 04:05 04:05 04:05 WBC MCV MCH MCHC RDW 18.4 H Lymph % (Auto) [place] % (Auto) Eos % (Auto) Lymph # (Auto) [place] # (Auto) Eos # (Auto) Baso # (Auto) Seg Neutrophils % Seg Neuts % (Manual) 94.0 H Lymphocytes % (Manual) 4.0 L Seg Neutrophils # Seg Neutrophils # Man Lymphocytes # (Manual) 0.3 L D-Dimer ABG pH POC ABG pCO2 POC ABG pO2 ABG pO2 ABG HCO3 ABG O2 Saturation ABG Base Excess ABG Oxyhemoglobin ABG Sodium ABG Chloride ABG Glucose Oxyhemoglobin Carboxyhemoglobin Sodium 136 L Potassium Chloride Carbon Dioxide BUN 18 H Creatinine 0.2 L Glucose 142 H POC Glucose Hemoglobin A1c Magnesium Ferritin 350.7 H AST ALT Alkaline Phosphatase Lactate Dehydrogenase 546 H C-Reactive Protein Total Protein 6.1 L Albumin 3.0 L Arterial Blood Glucose Coronavirus (PCR) 05/12/21 05/12/21 05/12/21 05:11 11:17 16:27 WBC MCV MCH MCHC RDW Lymph % (Auto) [place] % (Auto) Eos % (Auto) Lymph # (Auto) [place] # (Auto) Eos # (Auto) Baso # (Auto) Seg Neutrophils % Seg Neuts % (Manual) Lymphocytes % (Manual) Seg Neutrophils # Seg Neutrophils # Man Lymphocytes # (Manual) D-Dimer ABG pH POC ABG pCO2 POC ABG pO2 ABG pO2 ABG HCO3 ABG O2 Saturation ABG Base Excess ABG Oxyhemoglobin ABG Sodium ABG Chloride ABG Glucose Oxyhemoglobin Carboxyhemoglobin Sodium Potassium Chloride Carbon Dioxide BUN Creatinine Glucose POC Glucose 152 H 190 H 261 H Hemoglobin A1c Magnesium Ferritin AST ALT Alkaline Phosphatase Lactate Dehydrogenase C-Reactive Protein Total Protein Albumin Arterial Blood Glucose Coronavirus (PCR) 05/12/21 05/13/21 05/13/21 20:55 11:08 21:41 WBC MCV MCH MCHC RDW Lymph % (Auto) [place] % (Auto) Eos % (Auto) Lymph # (Auto) [place] # (Auto) Eos # (Auto) Baso # (Auto) Seg Neutrophils % Seg Neuts % (Manual) Lymphocytes % (Manual) Seg Neutrophils # Seg Neutrophils # Man Lymphocytes # (Manual) D-Dimer ABG pH POC ABG pCO2 POC ABG pO2 ABG pO2 ABG HCO3 ABG O2 Saturation ABG Base Excess ABG Oxyhemoglobin ABG Sodium ABG Chloride ABG Glucose Oxyhemoglobin Carboxyhemoglobin Sodium Potassium Chloride Carbon Dioxide BUN Creatinine Glucose POC Glucose 231 H 106 H 174 H Hemoglobin A1c Magnesium Ferritin AST ALT Alkaline Phosphatase Lactate Dehydrogenase C-Reactive Protein Total Protein Albumin Arterial Blood Glucose Coronavirus (PCR) 05/14/21 05/14/21 05/14/21 00:53 02:23 06:06 WBC MCV MCH MCHC RDW Lymph % (Auto) [place] % (Auto) Eos % (Auto) Lymph # (Auto) [place] # (Auto) Eos # (Auto) Baso # (Auto) Seg Neutrophils % Seg Neuts % (Manual) Lymphocytes % (Manual) Seg Neutrophils # Seg Neutrophils # Man Lymphocytes # (Manual) D-Dimer ABG pH POC ABG pCO2 POC ABG pO2 ABG pO2 130.3 H ABG HCO3 30.6 H ABG O2 Saturation ABG Base Excess 4.9 H ABG Oxyhemoglobin ABG Sodium ABG Chloride ABG Glucose Oxyhemoglobin Carboxyhemoglobin Sodium Potassium Chloride Carbon Dioxide BUN Creatinine Glucose POC Glucose 229 H 119 H Hemoglobin A1c Magnesium Ferritin AST ALT Alkaline Phosphatase Lactate Dehydrogenase C-Reactive Protein Total Protein Albumin Arterial Blood Glucose Coronavirus (PCR) 05/14/21 05/14/21 05/14/21 07:13 07:13 07:13 WBC MCV MCH MCHC RDW Lymph % (Auto) [place] % (Auto) Eos % (Auto) Lymph # (Auto) [place] # (Auto) Eos # (Auto) Baso # (Auto) Seg Neutrophils % Seg Neuts % (Manual) Lymphocytes % (Manual) Seg Neutrophils # Seg Neutrophils # Man Lymphocytes # (Manual) D-Dimer 712.80 H ABG pH POC ABG pCO2 POC ABG pO2 ABG pO2 ABG HCO3 ABG O2 Saturation ABG Base Excess ABG Oxyhemoglobin ABG Sodium ABG Chloride ABG Glucose Oxyhemoglobin Carboxyhemoglobin Sodium 133 L Potassium Chloride 95.5 L Carbon Dioxide 32 H BUN Creatinine 0.2 L Glucose 137 H POC Glucose Hemoglobin A1c Magnesium Ferritin 283.5 H AST ALT 63 H Alkaline Phosphatase Lactate Dehydrogenase 563 H C-Reactive Protein Total Protein 6.1 L Albumin 3.0 L Arterial Blood Glucose Coronavirus (PCR) 05/14/21 05/14/21 05/14/21 12:21 15:33 21:50 WBC MCV MCH MCHC RDW Lymph % (Auto) [place] % (Auto) Eos % (Auto) Lymph # (Auto) [place] # (Auto) Eos # (Auto) Baso # (Auto) Seg Neutrophils % Seg Neuts % (Manual) Lymphocytes % (Manual) Seg Neutrophils # Seg Neutrophils # Man Lymphocytes # (Manual) D-Dimer ABG pH POC ABG pCO2 POC ABG pO2 ABG pO2 ABG HCO3 ABG O2 Saturation ABG Base Excess ABG Oxyhemoglobin ABG Sodium ABG Chloride ABG Glucose Oxyhemoglobin Carboxyhemoglobin Sodium Potassium Chloride Carbon Dioxide BUN Creatinine Glucose POC Glucose 143 H 204 H 202 H Hemoglobin A1c Magnesium Ferritin AST ALT Alkaline Phosphatase Lactate Dehydrogenase C-Reactive Protein Total Protein Albumin Arterial Blood Glucose Coronavirus (PCR) 05/15/21 05/15/21 05/15/21 05:05 11:12 16:39 WBC MCV MCH MCHC RDW Lymph % (Auto) [place] % (Auto) Eos % (Auto) Lymph # (Auto) [place] # (Auto) Eos # (Auto) Baso # (Auto) Seg Neutrophils % Seg Neuts % (Manual) Lymphocytes % (Manual) Seg Neutrophils # Seg Neutrophils # Man Lymphocytes # (Manual) D-Dimer ABG pH POC ABG pCO2 POC ABG pO2 ABG pO2 ABG HCO3 ABG O2 Saturation ABG Base Excess ABG Oxyhemoglobin ABG Sodium ABG Chloride ABG Glucose Oxyhemoglobin Carboxyhemoglobin Sodium Potassium Chloride Carbon Dioxide BUN Creatinine Glucose POC Glucose 125 H 201 H 241 H Hemoglobin A1c Magnesium Ferritin AST ALT Alkaline Phosphatase Lactate Dehydrogenase C-Reactive Protein Total Protein Albumin Arterial Blood Glucose Coronavirus (PCR) 05/15/21 05/16/21 05/16/21 21:31 05:04 10:40 WBC MCV MCH MCHC RDW Lymph % (Auto) [place] % (Auto) Eos % (Auto) Lymph # (Auto) [place] # (Auto) Eos # (Auto) Baso # (Auto) Seg Neutrophils % Seg Neuts % (Manual) Lymphocytes % (Manual) Seg Neutrophils # Seg Neutrophils # Man Lymphocytes # (Manual) D-Dimer ABG pH POC ABG pCO2 POC ABG pO2 ABG pO2 ABG HCO3 ABG O2 Saturation ABG Base Excess ABG Oxyhemoglobin ABG Sodium ABG Chloride ABG Glucose Oxyhemoglobin Carboxyhemoglobin Sodium Potassium Chloride Carbon Dioxide BUN Creatinine Glucose POC Glucose 234 H 123 H 231 H Hemoglobin A1c Magnesium Ferritin AST ALT Alkaline Phosphatase Lactate Dehydrogenase C-Reactive Protein Total Protein Albumin Arterial Blood Glucose Coronavirus (PCR) 05/16/21 05/16/21 05/17/21 18:23 21:29 06:20 WBC MCV MCH MCHC RDW 18.8 H Lymph % (Auto) 10.2 L [place] % (Auto) Eos % (Auto) Lymph # (Auto) 0.8 L [place] # (Auto) Eos # (Auto) Baso # (Auto) Seg Neutrophils % 85.8 H Seg Neuts % (Manual) Lymphocytes % (Manual) Seg Neutrophils # Seg Neutrophils # Man Lymphocytes # (Manual) D-Dimer ABG pH POC ABG pCO2 POC ABG pO2 ABG pO2 ABG HCO3 ABG O2 Saturation ABG Base Excess ABG Oxyhemoglobin ABG Sodium ABG Chloride ABG Glucose Oxyhemoglobin Carboxyhemoglobin Sodium Potassium Chloride Carbon Dioxide BUN Creatinine Glucose POC Glucose 266 H 234 H Hemoglobin A1c Magnesium Ferritin AST ALT Alkaline Phosphatase Lactate Dehydrogenase C-Reactive Protein Total Protein Albumin Arterial Blood Glucose Coronavirus (PCR) 05/17/21 05/17/21 05/17/21 06:20 11:06 16:36 WBC MCV MCH MCHC RDW Lymph % (Auto) [place] % (Auto) Eos % (Auto) Lymph # (Auto) [place] # (Auto) Eos # (Auto) Baso # (Auto) Seg Neutrophils % Seg Neuts % (Manual) Lymphocytes % (Manual) Seg Neutrophils # Seg Neutrophils # Man Lymphocytes # (Manual) D-Dimer ABG pH POC ABG pCO2 POC ABG pO2 ABG pO2 ABG HCO3 ABG O2 Saturation ABG Base Excess ABG Oxyhemoglobin ABG Sodium ABG Chloride ABG Glucose Oxyhemoglobin Carboxyhemoglobin Sodium Potassium Chloride Carbon Dioxide 33 H BUN Creatinine 0.2 L Glucose 101 H POC Glucose 209 H 180 H Hemoglobin A1c Magnesium Ferritin AST ALT Alkaline Phosphatase Lactate Dehydrogenase C-Reactive Protein Total Protein Albumin Arterial Blood Glucose Coronavirus (PCR) 05/17/21 05/18/21 05/18/21 21:06 12:00 15:06 WBC MCV MCH MCHC RDW Lymph % (Auto) [place] % (Auto) Eos % (Auto) Lymph # (Auto) [place] # (Auto) Eos # (Auto) Baso # (Auto) Seg Neutrophils % Seg Neuts % (Manual) Lymphocytes % (Manual) Seg Neutrophils # Seg Neutrophils # Man Lymphocytes # (Manual) D-Dimer 874.02 H ABG pH POC ABG pCO2 POC ABG pO2 ABG pO2 ABG HCO3 ABG O2 Saturation ABG Base Excess ABG Oxyhemoglobin ABG Sodium ABG Chloride ABG Glucose Oxyhemoglobin Carboxyhemoglobin Sodium Potassium Chloride Carbon Dioxide BUN Creatinine Glucose POC Glucose 256 H 139 H Hemoglobin A1c Magnesium Ferritin AST ALT Alkaline Phosphatase Lactate Dehydrogenase C-Reactive Protein Total Protein Albumin Arterial Blood Glucose Coronavirus (PCR) 05/18/21 05/18/21 05/18/21 15:06 15:06 16:08 WBC MCV MCH MCHC RDW Lymph % (Auto) [place] % (Auto) Eos % (Auto) Lymph # (Auto) [place] # (Auto) Eos # (Auto) Baso # (Auto) Seg Neutrophils % Seg Neuts % (Manual) Lymphocytes % (Manual) Seg Neutrophils # Seg Neutrophils # Man Lymphocytes # (Manual) D-Dimer ABG pH POC ABG pCO2 POC ABG pO2 ABG pO2 ABG HCO3 ABG O2 Saturation ABG Base Excess ABG Oxyhemoglobin ABG Sodium ABG Chloride ABG Glucose Oxyhemoglobin Carboxyhemoglobin Sodium Potassium Chloride Carbon Dioxide BUN Creatinine Glucose POC Glucose 178 H Hemoglobin A1c Magnesium Ferritin 289.6 H AST ALT Alkaline Phosphatase Lactate Dehydrogenase 605 H C-Reactive Protein Total Protein Albumin Arterial Blood Glucose Coronavirus (PCR) 05/18/21 05/19/21 05/19/21 21:22 11:57 15:26 WBC MCV MCH MCHC RDW Lymph % (Auto) [place] % (Auto) Eos % (Auto) Lymph # (Auto) [place] # (Auto) Eos # (Auto) Baso # (Auto) Seg Neutrophils % Seg Neuts % (Manual) Lymphocytes % (Manual) Seg Neutrophils # Seg Neutrophils # Man Lymphocytes # (Manual) D-Dimer ABG pH POC ABG pCO2 POC ABG pO2 ABG pO2 ABG HCO3 ABG O2 Saturation ABG Base Excess ABG Oxyhemoglobin ABG Sodium ABG Chloride ABG Glucose Oxyhemoglobin Carboxyhemoglobin Sodium Potassium Chloride Carbon Dioxide BUN Creatinine Glucose POC Glucose 241 H 201 H 209 H Hemoglobin A1c Magnesium Ferritin AST ALT Alkaline Phosphatase Lactate Dehydrogenase C-Reactive Protein Total Protein Albumin Arterial Blood Glucose Coronavirus (PCR) 05/19/21 05/20/21 05/20/21 20:59 07:38 08:01 WBC MCV MCH MCHC RDW 19.7 H Lymph % (Auto) 8.3 L [place] % (Auto) Eos % (Auto) Lymph # (Auto) 0.8 L [place] # (Auto) Eos # (Auto) Baso # (Auto) Seg Neutrophils % 88.6 H Seg Neuts % (Manual) Lymphocytes % (Manual) Seg Neutrophils # 8.4 H Seg Neutrophils # Man Lymphocytes # (Manual) D-Dimer ABG pH POC ABG pCO2 POC ABG pO2 ABG pO2 ABG HCO3 ABG O2 Saturation ABG Base Excess ABG Oxyhemoglobin ABG Sodium ABG Chloride ABG Glucose Oxyhemoglobin Carboxyhemoglobin Sodium Potassium Chloride Carbon Dioxide BUN Creatinine Glucose POC Glucose 226 H 130 H Hemoglobin A1c Magnesium Ferritin AST ALT Alkaline Phosphatase Lactate Dehydrogenase C-Reactive Protein Total Protein Albumin Arterial Blood Glucose Coronavirus (PCR) 05/20/21 05/20/21 05/20/21 08:01 11:00 16:43 WBC MCV MCH MCHC RDW Lymph % (Auto) [place] % (Auto) Eos % (Auto) Lymph # (Auto) [place] # (Auto) Eos # (Auto) Baso # (Auto) Seg Neutrophils % Seg Neuts % (Manual) Lymphocytes % (Manual) Seg Neutrophils # Seg Neutrophils # Man Lymphocytes # (Manual) D-Dimer ABG pH POC ABG pCO2 POC ABG pO2 ABG pO2 ABG HCO3 ABG O2 Saturation ABG Base Excess ABG Oxyhemoglobin ABG Sodium ABG Chloride ABG Glucose Oxyhemoglobin Carboxyhemoglobin Sodium Potassium Chloride Carbon Dioxide BUN 18 H Creatinine 0.2 L Glucose 132 H POC Glucose 237 H 240 H Hemoglobin A1c Magnesium Ferritin AST ALT Alkaline Phosphatase Lactate Dehydrogenase C-Reactive Protein Total Protein Albumin Arterial Blood Glucose Coronavirus (PCR) 05/20/21 05/21/21 05/21/21 21:21 07:35 11:32 WBC MCV MCH MCHC RDW Lymph % (Auto) [place] % (Auto) Eos % (Auto) Lymph # (Auto) [place] # (Auto) Eos # (Auto) Baso # (Auto) Seg Neutrophils % Seg Neuts % (Manual) Lymphocytes % (Manual) Seg Neutrophils # Seg Neutrophils # Man Lymphocytes # (Manual) D-Dimer ABG pH POC ABG pCO2 POC ABG pO2 ABG pO2 ABG HCO3 ABG O2 Saturation ABG Base Excess ABG Oxyhemoglobin ABG Sodium ABG Chloride ABG Glucose Oxyhemoglobin Carboxyhemoglobin Sodium Potassium Chloride Carbon Dioxide BUN Creatinine Glucose POC Glucose 241 H 162 H 171 H Hemoglobin A1c Magnesium Ferritin AST ALT Alkaline Phosphatase Lactate Dehydrogenase C-Reactive Protein Total Protein Albumin Arterial Blood Glucose Coronavirus (PCR) 05/21/21 05/21/21 05/22/21 16:22 20:43 05:14 WBC MCV MCH MCHC RDW Lymph % (Auto) [place] % (Auto) Eos % (Auto) Lymph # (Auto) [place] # (Auto) Eos # (Auto) Baso # (Auto) Seg Neutrophils % Seg Neuts % (Manual) Lymphocytes % (Manual) Seg Neutrophils # Seg Neutrophils # Man Lymphocytes # (Manual) D-Dimer ABG pH POC ABG pCO2 POC ABG pO2 ABG pO2 ABG HCO3 ABG O2 Saturation ABG Base Excess ABG Oxyhemoglobin ABG Sodium ABG Chloride ABG Glucose Oxyhemoglobin Carboxyhemoglobin Sodium Potassium Chloride Carbon Dioxide BUN Creatinine Glucose POC Glucose 244 H 299 H 140 H Hemoglobin A1c Magnesium Ferritin AST ALT Alkaline Phosphatase Lactate Dehydrogenase C-Reactive Protein Total Protein Albumin Arterial Blood Glucose Coronavirus (PCR) 05/22/21 05/22/21 05/22/21 08:45 11:54 16:15 WBC MCV MCH MCHC RDW Lymph % (Auto) [place] % (Auto) Eos % (Auto) Lymph # (Auto) [place] # (Auto) Eos # (Auto) Baso # (Auto) Seg Neutrophils % Seg Neuts % (Manual) Lymphocytes % (Manual) Seg Neutrophils # Seg Neutrophils # Man Lymphocytes # (Manual) D-Dimer ABG pH POC ABG pCO2 POC ABG pO2 ABG pO2 ABG HCO3 ABG O2 Saturation ABG Base Excess ABG Oxyhemoglobin ABG Sodium ABG Chloride ABG Glucose Oxyhemoglobin Carboxyhemoglobin Sodium Potassium Chloride Carbon Dioxide BUN Creatinine Glucose POC Glucose 133 H 265 H 221 H Hemoglobin A1c Magnesium Ferritin AST ALT Alkaline Phosphatase Lactate Dehydrogenase C-Reactive Protein Total Protein Albumin Arterial Blood Glucose Coronavirus (PCR) 05/22/21 05/23/21 05/23/21 21:43 08:20 09:50 WBC MCV MCH MCHC RDW Lymph % (Auto) [place] % (Auto) Eos % (Auto) Lymph # (Auto) [place] # (Auto) Eos # (Auto) Baso # (Auto) Seg Neutrophils % Seg Neuts % (Manual) Lymphocytes % (Manual) Seg Neutrophils # Seg Neutrophils # Man Lymphocytes # (Manual) D-Dimer 910.38 H ABG pH POC ABG pCO2 POC ABG pO2 ABG pO2 ABG HCO3 ABG O2 Saturation ABG Base Excess ABG Oxyhemoglobin ABG Sodium ABG Chloride ABG Glucose Oxyhemoglobin Carboxyhemoglobin Sodium Potassium Chloride Carbon Dioxide BUN Creatinine Glucose POC Glucose 262 H 140 H Hemoglobin A1c Magnesium Ferritin AST ALT Alkaline Phosphatase Lactate Dehydrogenase C-Reactive Protein Total Protein Albumin Arterial Blood Glucose Coronavirus (PCR) 05/23/21 05/23/21 05/23/21 09:50 09:50 10:52 WBC MCV MCH MCHC RDW Lymph % (Auto) [place] % (Auto) Eos % (Auto) Lymph # (Auto) [place] # (Auto) Eos # (Auto) Baso # (Auto) Seg Neutrophils % Seg Neuts % (Manual) Lymphocytes % (Manual) Seg Neutrophils # Seg Neutrophils # Man Lymphocytes # (Manual) D-Dimer ABG pH POC ABG pCO2 POC ABG pO2 ABG pO2 ABG HCO3 ABG O2 Saturation ABG Base Excess ABG Oxyhemoglobin ABG Sodium ABG Chloride ABG Glucose Oxyhemoglobin Carboxyhemoglobin Sodium Potassium Chloride Carbon Dioxide BUN Creatinine Glucose POC Glucose 241 H Hemoglobin A1c Magnesium Ferritin 244.9 H AST ALT Alkaline Phosphatase Lactate Dehydrogenase 584 H C-Reactive Protein Total Protein Albumin Arterial Blood Glucose Coronavirus (PCR) 05/23/21 05/23/21 05/24/21 17:24 21:52 07:44 WBC MCV MCH MCHC RDW Lymph % (Auto) [place] % (Auto) Eos % (Auto) Lymph # (Auto) [place] # (Auto) Eos # (Auto) Baso # (Auto) Seg Neutrophils % Seg Neuts % (Manual) Lymphocytes % (Manual) Seg Neutrophils # Seg Neutrophils # Man Lymphocytes # (Manual) D-Dimer ABG pH POC ABG pCO2 POC ABG pO2 ABG pO2 ABG HCO3 ABG O2 Saturation ABG Base Excess ABG Oxyhemoglobin ABG Sodium ABG Chloride ABG Glucose Oxyhemoglobin Carboxyhemoglobin Sodium Potassium Chloride Carbon Dioxide BUN Creatinine Glucose POC Glucose 197 H 289 H 161 H Hemoglobin A1c Magnesium Ferritin AST ALT Alkaline Phosphatase Lactate Dehydrogenase C-Reactive Protein Total Protein Albumin Arterial Blood Glucose Coronavirus (PCR) 05/24/21 05/24/21 05/24/21 11:17 17:51 21:26 WBC MCV MCH MCHC RDW Lymph % (Auto) [place] % (Auto) Eos % (Auto) Lymph # (Auto) [place] # (Auto) Eos # (Auto) Baso # (Auto) Seg Neutrophils % Seg Neuts % (Manual) Lymphocytes % (Manual) Seg Neutrophils # Seg Neutrophils # Man Lymphocytes # (Manual) D-Dimer ABG pH POC ABG pCO2 POC ABG pO2 ABG pO2 ABG HCO3 ABG O2 Saturation ABG Base Excess ABG Oxyhemoglobin ABG Sodium ABG Chloride ABG Glucose Oxyhemoglobin Carboxyhemoglobin Sodium Potassium Chloride Carbon Dioxide BUN Creatinine Glucose POC Glucose 308 H 175 H 198 H Hemoglobin A1c Magnesium Ferritin AST ALT Alkaline Phosphatase Lactate Dehydrogenase C-Reactive Protein Total Protein Albumin Arterial Blood Glucose Coronavirus (PCR) 05/25/21 05/25/21 05/25/21 08:14 11:13 17:13 WBC MCV MCH MCHC RDW Lymph % (Auto) [place] % (Auto) Eos % (Auto) Lymph # (Auto) [place] # (Auto) Eos # (Auto) Baso # (Auto) Seg Neutrophils % Seg Neuts % (Manual) Lymphocytes % (Manual) Seg Neutrophils # Seg Neutrophils # Man Lymphocytes # (Manual) D-Dimer ABG pH POC ABG pCO2 POC ABG pO2 ABG pO2 ABG HCO3 ABG O2 Saturation ABG Base Excess ABG Oxyhemoglobin ABG Sodium ABG Chloride ABG Glucose Oxyhemoglobin Carboxyhemoglobin Sodium Potassium Chloride Carbon Dioxide BUN Creatinine Glucose POC Glucose 203 H 339 H 235 H Hemoglobin A1c Magnesium Ferritin AST ALT Alkaline Phosphatase Lactate Dehydrogenase C-Reactive Protein Total Protein Albumin Arterial Blood Glucose Coronavirus (PCR) 05/25/21 05/26/21 05/26/21 21:03 07:33 11:19 WBC MCV MCH MCHC RDW Lymph % (Auto) [place] % (Auto) Eos % (Auto) Lymph # (Auto) [place] # (Auto) Eos # (Auto) Baso # (Auto) Seg Neutrophils % Seg Neuts % (Manual) Lymphocytes % (Manual) Seg Neutrophils # Seg Neutrophils # Man Lymphocytes # (Manual) D-Dimer ABG pH POC ABG pCO2 POC ABG pO2 ABG pO2 ABG HCO3 ABG O2 Saturation ABG Base Excess ABG Oxyhemoglobin ABG Sodium ABG Chloride ABG Glucose Oxyhemoglobin Carboxyhemoglobin Sodium Potassium Chloride Carbon Dioxide BUN Creatinine Glucose POC Glucose 263 H 156 H 288 H Hemoglobin A1c Magnesium Ferritin AST ALT Alkaline Phosphatase Lactate Dehydrogenase C-Reactive Protein Total Protein Albumin Arterial Blood Glucose Coronavirus (PCR) 05/26/21 05/26/21 05/27/21 16:26 20:55 07:38 WBC MCV MCH MCHC RDW Lymph % (Auto) [place] % (Auto) Eos % (Auto) Lymph # (Auto) [place] # (Auto) Eos # (Auto) Baso # (Auto) Seg Neutrophils % Seg Neuts % (Manual) Lymphocytes % (Manual) Seg Neutrophils # Seg Neutrophils # Man Lymphocytes # (Manual) D-Dimer ABG pH POC ABG pCO2 POC ABG pO2 ABG pO2 ABG HCO3 ABG O2 Saturation ABG Base Excess ABG Oxyhemoglobin ABG Sodium ABG Chloride ABG Glucose Oxyhemoglobin Carboxyhemoglobin Sodium Potassium Chloride Carbon Dioxide BUN Creatinine Glucose POC Glucose 286 H 293 H 115 H Hemoglobin A1c Magnesium Ferritin AST ALT Alkaline Phosphatase Lactate Dehydrogenase C-Reactive Protein Total Protein Albumin Arterial Blood Glucose Coronavirus (PCR) 05/27/21 05/27/21 05/27/21 11:46 15:58 21:02 WBC MCV MCH MCHC RDW Lymph % (Auto) [place] % (Auto) Eos % (Auto) Lymph # (Auto) [place] # (Auto) Eos # (Auto) Baso # (Auto) Seg Neutrophils % Seg Neuts % (Manual) Lymphocytes % (Manual) Seg Neutrophils # Seg Neutrophils # Man Lymphocytes # (Manual) D-Dimer ABG pH POC ABG pCO2 POC ABG pO2 ABG pO2 ABG HCO3 ABG O2 Saturation ABG Base Excess ABG Oxyhemoglobin ABG Sodium ABG Chloride ABG Glucose Oxyhemoglobin Carboxyhemoglobin Sodium Potassium Chloride Carbon Dioxide BUN Creatinine Glucose POC Glucose 260 H 318 H 246 H Hemoglobin A1c Magnesium Ferritin AST ALT Alkaline Phosphatase Lactate Dehydrogenase C-Reactive Protein Total Protein Albumin Arterial Blood Glucose Coronavirus (PCR) 05/28/21 05/28/21 05/28/21 07:34 11:31 16:36 WBC MCV MCH MCHC RDW Lymph % (Auto) [place] % (Auto) Eos % (Auto) Lymph # (Auto) [place] # (Auto) Eos # (Auto) Baso # (Auto) Seg Neutrophils % Seg Neuts % (Manual) Lymphocytes % (Manual) Seg Neutrophils # Seg Neutrophils # Man Lymphocytes # (Manual) D-Dimer ABG pH POC ABG pCO2 POC ABG pO2 ABG pO2 ABG HCO3 ABG O2 Saturation ABG Base Excess ABG Oxyhemoglobin ABG Sodium ABG Chloride ABG Glucose Oxyhemoglobin Carboxyhemoglobin Sodium Potassium Chloride Carbon Dioxide BUN Creatinine Glucose POC Glucose 185 H 297 H 183 H Hemoglobin A1c Magnesium Ferritin AST ALT Alkaline Phosphatase Lactate Dehydrogenase C-Reactive Protein Total Protein Albumin Arterial Blood Glucose Coronavirus (PCR) 05/28/21 05/29/21 05/29/21 21:19 07:34 11:19 WBC MCV MCH MCHC RDW Lymph % (Auto) [place] % (Auto) Eos % (Auto) Lymph # (Auto) [place] # (Auto) Eos # (Auto) Baso # (Auto) Seg Neutrophils % Seg Neuts % (Manual) Lymphocytes % (Manual) Seg Neutrophils # Seg Neutrophils # Man Lymphocytes # (Manual) D-Dimer ABG pH POC ABG pCO2 POC ABG pO2 ABG pO2 ABG HCO3 ABG O2 Saturation ABG Base Excess ABG Oxyhemoglobin ABG Sodium ABG Chloride ABG Glucose Oxyhemoglobin Carboxyhemoglobin Sodium Potassium Chloride Carbon Dioxide BUN Creatinine Glucose POC Glucose 274 H 139 H 293 H Hemoglobin A1c Magnesium Ferritin AST ALT Alkaline Phosphatase Lactate Dehydrogenase C-Reactive Protein Total Protein Albumin Arterial Blood Glucose Coronavirus (PCR) 05/29/21 05/29/21 05/30/21 16:36 22:44 05:55 WBC MCV MCH MCHC RDW 21.3 H Lymph % (Auto) 8.0 L [place] % (Auto) Eos % (Auto) Lymph # (Auto) 0.6 L [place] # (Auto) Eos # (Auto) Baso # (Auto) Seg Neutrophils % 88.6 H Seg Neuts % (Manual) Lymphocytes % (Manual) Seg Neutrophils # Seg Neutrophils # Man Lymphocytes # (Manual) D-Dimer ABG pH POC ABG pCO2 POC ABG pO2 ABG pO2 ABG HCO3 ABG O2 Saturation ABG Base Excess ABG Oxyhemoglobin ABG Sodium ABG Chloride ABG Glucose Oxyhemoglobin Carboxyhemoglobin Sodium Potassium Chloride Carbon Dioxide BUN Creatinine Glucose POC Glucose 299 H 160 H Hemoglobin A1c Magnesium Ferritin AST ALT Alkaline Phosphatase Lactate Dehydrogenase C-Reactive Protein Total Protein Albumin Arterial Blood Glucose Coronavirus (PCR) 05/30/21 05/30/21 05/30/21 05:55 08:04 11:13 WBC MCV MCH MCHC RDW Lymph % (Auto) [place] % (Auto) Eos % (Auto) Lymph # (Auto) [place] # (Auto) Eos # (Auto) Baso # (Auto) Seg Neutrophils % Seg Neuts % (Manual) Lymphocytes % (Manual) Seg Neutrophils # Seg Neutrophils # Man Lymphocytes # (Manual) D-Dimer ABG pH POC ABG pCO2 POC ABG pO2 ABG pO2 ABG HCO3 ABG O2 Saturation ABG Base Excess ABG Oxyhemoglobin ABG Sodium ABG Chloride ABG Glucose Oxyhemoglobin Carboxyhemoglobin Sodium Potassium Chloride Carbon Dioxide BUN 19 H Creatinine 0.2 L Glucose 209 H POC Glucose 157 H 275 H Hemoglobin A1c Magnesium Ferritin AST ALT Alkaline Phosphatase Lactate Dehydrogenase C-Reactive Protein Total Protein Albumin Arterial Blood Glucose Coronavirus (PCR) 05/30/21 05/30/21 05/31/21 17:08 22:12 07:36 WBC MCV MCH MCHC RDW Lymph % (Auto) [place] % (Auto) Eos % (Auto) Lymph # (Auto) [place] # (Auto) Eos # (Auto) Baso # (Auto) Seg Neutrophils % Seg Neuts % (Manual) Lymphocytes % (Manual) Seg Neutrophils # Seg Neutrophils # Man Lymphocytes # (Manual) D-Dimer ABG pH POC ABG pCO2 POC ABG pO2 ABG pO2 ABG HCO3 ABG O2 Saturation ABG Base Excess ABG Oxyhemoglobin ABG Sodium ABG Chloride ABG Glucose Oxyhemoglobin Carboxyhemoglobin Sodium Potassium Chloride Carbon Dioxide BUN Creatinine Glucose POC Glucose 154 H 275 H 138 H Hemoglobin A1c Magnesium Ferritin AST ALT Alkaline Phosphatase Lactate Dehydrogenase C-Reactive Protein Total Protein Albumin Arterial Blood Glucose Coronavirus (PCR) 05/31/21 05/31/21 05/31/21 11:17 16:55 21:25 WBC MCV MCH MCHC RDW Lymph % (Auto) [place] % (Auto) Eos % (Auto) Lymph # (Auto) [place] # (Auto) Eos # (Auto) Baso # (Auto) Seg Neutrophils % Seg Neuts % (Manual) Lymphocytes % (Manual) Seg Neutrophils # Seg Neutrophils # Man Lymphocytes # (Manual) D-Dimer ABG pH POC ABG pCO2 POC ABG pO2 ABG pO2 ABG HCO3 ABG O2 Saturation ABG Base Excess ABG Oxyhemoglobin ABG Sodium ABG Chloride ABG Glucose Oxyhemoglobin Carboxyhemoglobin Sodium Potassium Chloride Carbon Dioxide BUN Creatinine Glucose POC Glucose 258 H 215 H 318 H Hemoglobin A1c Magnesium Ferritin AST ALT Alkaline Phosphatase Lactate Dehydrogenase C-Reactive Protein Total Protein Albumin Arterial Blood Glucose Coronavirus (PCR) 06/01/21 06/01/21 06/01/21 07:23 11:38 16:52 WBC MCV MCH MCHC RDW Lymph % (Auto) [place] % (Auto) Eos % (Auto) Lymph # (Auto) [place] # (Auto) Eos # (Auto) Baso # (Auto) Seg Neutrophils % Seg Neuts % (Manual) Lymphocytes % (Manual) Seg Neutrophils # Seg Neutrophils # Man Lymphocytes # (Manual) D-Dimer ABG pH POC ABG pCO2 POC ABG pO2 ABG pO2 ABG HCO3 ABG O2 Saturation ABG Base Excess ABG Oxyhemoglobin ABG Sodium ABG Chloride ABG Glucose Oxyhemoglobin Carboxyhemoglobin Sodium Potassium Chloride Carbon Dioxide BUN Creatinine Glucose POC Glucose 157 H 259 H 150 H Hemoglobin A1c Magnesium Ferritin AST ALT Alkaline Phosphatase Lactate Dehydrogenase C-Reactive Protein Total Protein Albumin Arterial Blood Glucose Coronavirus (PCR) 06/01/21 06/02/21 06/02/21 23:16 05:34 05:34 WBC MCV MCH MCHC RDW 21.3 H Lymph % (Auto) 9.6 L [place] % (Auto) Eos % (Auto) Lymph # (Auto) 0.6 L [place] # (Auto) Eos # (Auto) Baso # (Auto) Seg Neutrophils % 86.2 H Seg Neuts % (Manual) Lymphocytes % (Manual) Seg Neutrophils # Seg Neutrophils # Man Lymphocytes # (Manual) D-Dimer ABG pH POC ABG pCO2 POC ABG pO2 ABG pO2 ABG HCO3 ABG O2 Saturation ABG Base Excess ABG Oxyhemoglobin ABG Sodium ABG Chloride ABG Glucose Oxyhemoglobin Carboxyhemoglobin Sodium 136 L Potassium Chloride Carbon Dioxide BUN Creatinine 0.2 L Glucose 186 H POC Glucose 247 H Hemoglobin A1c Magnesium Ferritin AST ALT 69 H Alkaline Phosphatase Lactate Dehydrogenase C-Reactive Protein Total Protein 6.1 L Albumin 3.2 L Arterial Blood Glucose Coronavirus (PCR) 06/02/21 06/02/21 06/02/21 11:25 18:23 21:32 WBC MCV MCH MCHC RDW Lymph % (Auto) [place] % (Auto) Eos % (Auto) Lymph # (Auto) [place] # (Auto) Eos # (Auto) Baso # (Auto) Seg Neutrophils % Seg Neuts % (Manual) Lymphocytes % (Manual) Seg Neutrophils # Seg Neutrophils # Man Lymphocytes # (Manual) D-Dimer ABG pH POC ABG pCO2 POC ABG pO2 ABG pO2 ABG HCO3 ABG O2 Saturation ABG Base Excess ABG Oxyhemoglobin ABG Sodium ABG Chloride ABG Glucose Oxyhemoglobin Carboxyhemoglobin Sodium Potassium Chloride Carbon Dioxide BUN Creatinine Glucose POC Glucose 157 H 299 H 246 H Hemoglobin A1c Magnesium Ferritin AST ALT Alkaline Phosphatase Lactate Dehydrogenase C-Reactive Protein Total Protein Albumin Arterial Blood Glucose Coronavirus (PCR) 06/03/21 06/03/21 06/03/21 08:12 12:21 17:31 WBC MCV MCH MCHC RDW Lymph % (Auto) [place] % (Auto) Eos % (Auto) Lymph # (Auto) [place] # (Auto) Eos # (Auto) Baso # (Auto) Seg Neutrophils % Seg Neuts % (Manual) Lymphocytes % (Manual) Seg Neutrophils # Seg Neutrophils # Man Lymphocytes # (Manual) D-Dimer ABG pH POC ABG pCO2 POC ABG pO2 ABG pO2 ABG HCO3 ABG O2 Saturation ABG Base Excess ABG Oxyhemoglobin ABG Sodium ABG Chloride ABG Glucose Oxyhemoglobin Carboxyhemoglobin Sodium Potassium Chloride Carbon Dioxide BUN Creatinine Glucose POC Glucose 153 H 302 H 252 H Hemoglobin A1c Magnesium Ferritin AST ALT Alkaline Phosphatase Lactate Dehydrogenase C-Reactive Protein Total Protein Albumin Arterial Blood Glucose Coronavirus (PCR) 06/03/21 06/04/21 06/04/21 22:08 11:12 16:01 WBC MCV MCH MCHC RDW Lymph % (Auto) [place] % (Auto) Eos % (Auto) Lymph # (Auto) [place] # (Auto) Eos # (Auto) Baso # (Auto) Seg Neutrophils % Seg Neuts % (Manual) Lymphocytes % (Manual) Seg Neutrophils # Seg Neutrophils # Man Lymphocytes # (Manual) D-Dimer ABG pH POC ABG pCO2 POC ABG pO2 ABG pO2 ABG HCO3 ABG O2 Saturation ABG Base Excess ABG Oxyhemoglobin ABG Sodium ABG Chloride ABG Glucose Oxyhemoglobin Carboxyhemoglobin Sodium Potassium Chloride Carbon Dioxide BUN Creatinine Glucose POC Glucose 224 H 259 H 238 H Hemoglobin A1c Magnesium Ferritin AST ALT Alkaline Phosphatase Lactate Dehydrogenase C-Reactive Protein Total Protein Albumin Arterial Blood Glucose Coronavirus (PCR) 06/04/21 06/05/21 06/05/21 21:26 05:26 05:26 WBC MCV MCH MCHC RDW Lymph % (Auto) [place] % (Auto) Eos % (Auto) Lymph # (Auto) [place] # (Auto) Eos # (Auto) Baso # (Auto) Seg Neutrophils % Seg Neuts % (Manual) Lymphocytes % (Manual) Seg Neutrophils # Seg Neutrophils # Man Lymphocytes # (Manual) D-Dimer 488.49 H ABG pH POC ABG pCO2 POC ABG pO2 ABG pO2 ABG HCO3 ABG O2 Saturation ABG Base Excess ABG Oxyhemoglobin ABG Sodium ABG Chloride ABG Glucose Oxyhemoglobin Carboxyhemoglobin Sodium Potassium Chloride Carbon Dioxide BUN Creatinine 0.2 L Glucose 198 H POC Glucose 257 H Hemoglobin A1c Magnesium Ferritin AST ALT Alkaline Phosphatase Lactate Dehydrogenase 475 H C-Reactive Protein Total Protein Albumin Arterial Blood Glucose Coronavirus (PCR) 06/05/21 06/05/21 06/05/21 07:20 08:30 11:00 WBC MCV MCH MCHC RDW Lymph % (Auto) [place] % (Auto) Eos % (Auto) Lymph # (Auto) [place] # (Auto) Eos # (Auto) Baso # (Auto) Seg Neutrophils % Seg Neuts % (Manual) Lymphocytes % (Manual) Seg Neutrophils # Seg Neutrophils # Man Lymphocytes # (Manual) D-Dimer ABG pH POC ABG pCO2 POC ABG pO2 ABG pO2 ABG HCO3 ABG O2 Saturation ABG Base Excess ABG Oxyhemoglobin ABG Sodium ABG Chloride ABG Glucose Oxyhemoglobin Carboxyhemoglobin Sodium Potassium Chloride Carbon Dioxide BUN Creatinine Glucose POC Glucose 146 H 246 H Hemoglobin A1c Magnesium Ferritin AST ALT Alkaline Phosphatase Lactate Dehydrogenase C-Reactive Protein Total Protein Albumin Arterial Blood Glucose Coronavirus (PCR) Positive A 06/05/21 06/05/21 06/06/21 16:50 22:30 07:57 WBC MCV MCH MCHC RDW Lymph % (Auto) [place] % (Auto) Eos % (Auto) Lymph # (Auto) [place] # (Auto) Eos # (Auto) Baso # (Auto) Seg Neutrophils % Seg Neuts % (Manual) Lymphocytes % (Manual) Seg Neutrophils # Seg Neutrophils # Man Lymphocytes # (Manual) D-Dimer ABG pH POC ABG pCO2 POC ABG pO2 ABG pO2 ABG HCO3 ABG O2 Saturation ABG Base Excess ABG Oxyhemoglobin ABG Sodium ABG Chloride ABG Glucose Oxyhemoglobin Carboxyhemoglobin Sodium Potassium Chloride Carbon Dioxide BUN Creatinine Glucose POC Glucose 240 H 174 H 120 H Hemoglobin A1c Magnesium Ferritin AST ALT Alkaline Phosphatase Lactate Dehydrogenase C-Reactive Protein Total Protein Albumin Arterial Blood Glucose Coronavirus (PCR) 06/06/21 06/06/21 06/06/21 11:14 16:50 21:11 WBC MCV MCH MCHC RDW Lymph % (Auto) [place] % (Auto) Eos % (Auto) Lymph # (Auto) [place] # (Auto) Eos # (Auto) Baso # (Auto) Seg Neutrophils % Seg Neuts % (Manual) Lymphocytes % (Manual) Seg Neutrophils # Seg Neutrophils # Man Lymphocytes # (Manual) D-Dimer ABG pH POC ABG pCO2 POC ABG pO2 ABG pO2 ABG HCO3 ABG O2 Saturation ABG Base Excess ABG Oxyhemoglobin ABG Sodium ABG Chloride ABG Glucose Oxyhemoglobin Carboxyhemoglobin Sodium Potassium Chloride Carbon Dioxide BUN Creatinine Glucose POC Glucose 267 H 218 H 124 H Hemoglobin A1c Magnesium Ferritin AST ALT Alkaline Phosphatase Lactate Dehydrogenase C-Reactive Protein Total Protein Albumin Arterial Blood Glucose Coronavirus (PCR) 06/07/21 06/07/21 06/08/21 11:58 15:59 07:59 WBC MCV MCH MCHC RDW Lymph % (Auto) [place] % (Auto) Eos % (Auto) Lymph # (Auto) [place] # (Auto) Eos # (Auto) Baso # (Auto) Seg Neutrophils % Seg Neuts % (Manual) Lymphocytes % (Manual) Seg Neutrophils # Seg Neutrophils # Man Lymphocytes # (Manual) D-Dimer ABG pH POC ABG pCO2 POC ABG pO2 ABG pO2 ABG HCO3 ABG O2 Saturation ABG Base Excess ABG Oxyhemoglobin ABG Sodium ABG Chloride ABG Glucose Oxyhemoglobin Carboxyhemoglobin Sodium Potassium Chloride Carbon Dioxide BUN Creatinine Glucose POC Glucose 219 H 208 H 192 H Hemoglobin A1c Magnesium Ferritin AST ALT Alkaline Phosphatase Lactate Dehydrogenase C-Reactive Protein Total Protein Albumin Arterial Blood Glucose Coronavirus (PCR) 06/08/21 06/08/21 06/09/21 11:26 23:28 07:33 WBC MCV MCH MCHC RDW Lymph % (Auto) [place] % (Auto) Eos % (Auto) Lymph # (Auto) [place] # (Auto) Eos # (Auto) Baso # (Auto) Seg Neutrophils % Seg Neuts % (Manual) Lymphocytes % (Manual) Seg Neutrophils # Seg Neutrophils # Man Lymphocytes # (Manual) D-Dimer ABG pH POC ABG pCO2 POC ABG pO2 ABG pO2 ABG HCO3 ABG O2 Saturation ABG Base Excess ABG Oxyhemoglobin ABG Sodium ABG Chloride ABG Glucose Oxyhemoglobin Carboxyhemoglobin Sodium Potassium Chloride Carbon Dioxide BUN Creatinine Glucose POC Glucose 307 H 138 H 145 H Hemoglobin A1c Magnesium Ferritin AST ALT Alkaline Phosphatase Lactate Dehydrogenase C-Reactive Protein Total Protein Albumin Arterial Blood Glucose Coronavirus (PCR) 06/09/21 06/09/21 06/09/21 11:01 15:47 21:43 WBC MCV MCH MCHC RDW Lymph % (Auto) [place] % (Auto) Eos % (Auto) Lymph # (Auto) [place] # (Auto) Eos # (Auto) Baso # (Auto) Seg Neutrophils % Seg Neuts % (Manual) Lymphocytes % (Manual) Seg Neutrophils # Seg Neutrophils # Man Lymphocytes # (Manual) D-Dimer ABG pH POC ABG pCO2 POC ABG pO2 ABG pO2 ABG HCO3 ABG O2 Saturation ABG Base Excess ABG Oxyhemoglobin ABG Sodium ABG Chloride ABG Glucose Oxyhemoglobin Carboxyhemoglobin Sodium Potassium Chloride Carbon Dioxide BUN Creatinine Glucose POC Glucose 266 H 305 H 223 H Hemoglobin A1c Magnesium Ferritin AST ALT Alkaline Phosphatase Lactate Dehydrogenase C-Reactive Protein Total Protein Albumin Arterial Blood Glucose Coronavirus (PCR) 06/10/21 06/10/21 06/10/21 08:27 12:10 17:45 WBC MCV MCH MCHC RDW Lymph % (Auto) [place] % (Auto) Eos % (Auto) Lymph # (Auto) [place] # (Auto) Eos # (Auto) Baso # (Auto) Seg Neutrophils % Seg Neuts % (Manual) Lymphocytes % (Manual) Seg Neutrophils # Seg Neutrophils # Man Lymphocytes # (Manual) D-Dimer ABG pH POC ABG pCO2 POC ABG pO2 ABG pO2 ABG HCO3 ABG O2 Saturation ABG Base Excess ABG Oxyhemoglobin ABG Sodium ABG Chloride ABG Glucose Oxyhemoglobin Carboxyhemoglobin Sodium Potassium Chloride Carbon Dioxide BUN Creatinine Glucose POC Glucose 174 H 306 H 210 H Hemoglobin A1c Magnesium Ferritin AST ALT Alkaline Phosphatase Lactate Dehydrogenase C-Reactive Protein Total Protein Albumin Arterial Blood Glucose Coronavirus (PCR) 06/10/21 06/11/21 06/11/21 21:45 09:38 09:38 WBC MCV MCH MCHC RDW 20.9 H Lymph % (Auto) [place] % (Auto) Eos % (Auto) Lymph # (Auto) [place] # (Auto) Eos # (Auto) Baso # (Auto) Seg Neutrophils % Seg Neuts % (Manual) Lymphocytes % (Manual) Seg Neutrophils # Seg Neutrophils # Man Lymphocytes # (Manual) D-Dimer ABG pH POC ABG pCO2 POC ABG pO2 ABG pO2 ABG HCO3 ABG O2 Saturation ABG Base Excess ABG Oxyhemoglobin ABG Sodium ABG Chloride ABG Glucose Oxyhemoglobin Carboxyhemoglobin Sodium 135 L Potassium Chloride 90.8 L Carbon Dioxide 36 H BUN 29 H Creatinine 0.2 L Glucose 258 H POC Glucose 262 H Hemoglobin A1c Magnesium Ferritin AST ALT Alkaline Phosphatase Lactate Dehydrogenase C-Reactive Protein Total Protein Albumin Arterial Blood Glucose Coronavirus (PCR) 06/11/21 06/11/21 06/11/21 11:20 15:49 22:57 WBC MCV MCH MCHC RDW Lymph % (Auto) [place] % (Auto) Eos % (Auto) Lymph # (Auto) [place] # (Auto) Eos # (Auto) Baso # (Auto) Seg Neutrophils % Seg Neuts % (Manual) Lymphocytes % (Manual) Seg Neutrophils # Seg Neutrophils # Man Lymphocytes # (Manual) D-Dimer ABG pH POC ABG pCO2 POC ABG pO2 ABG pO2 ABG HCO3 ABG O2 Saturation ABG Base Excess ABG Oxyhemoglobin ABG Sodium ABG Chloride ABG Glucose Oxyhemoglobin Carboxyhemoglobin Sodium Potassium Chloride Carbon Dioxide BUN Creatinine Glucose POC Glucose 269 H 206 H 211 H Hemoglobin A1c Magnesium Ferritin AST ALT Alkaline Phosphatase Lactate Dehydrogenase C-Reactive Protein Total Protein Albumin Arterial Blood Glucose Coronavirus (PCR) 06/12/21 06/12/21 06/12/21 08:07 11:24 18:08 WBC MCV MCH MCHC RDW Lymph % (Auto) [place] % (Auto) Eos % (Auto) Lymph # (Auto) [place] # (Auto) Eos # (Auto) Baso # (Auto) Seg Neutrophils % Seg Neuts % (Manual) Lymphocytes % (Manual) Seg Neutrophils # Seg Neutrophils # Man Lymphocytes # (Manual) D-Dimer ABG pH POC ABG pCO2 POC ABG pO2 ABG pO2 ABG HCO3 ABG O2 Saturation ABG Base Excess ABG Oxyhemoglobin ABG Sodium ABG Chloride ABG Glucose Oxyhemoglobin Carboxyhemoglobin Sodium Potassium Chloride Carbon Dioxide BUN Creatinine Glucose POC Glucose 149 H 270 H 166 H Hemoglobin A1c Magnesium Ferritin AST ALT Alkaline Phosphatase Lactate Dehydrogenase C-Reactive Protein Total Protein Albumin Arterial Blood Glucose Coronavirus (PCR) 06/12/21 06/13/21 06/13/21 20:22 07:50 11:18 WBC MCV MCH MCHC RDW Lymph % (Auto) [place] % (Auto) Eos % (Auto) Lymph # (Auto) [place] # (Auto) Eos # (Auto) Baso # (Auto) Seg Neutrophils % Seg Neuts % (Manual) Lymphocytes % (Manual) Seg Neutrophils # Seg Neutrophils # Man Lymphocytes # (Manual) D-Dimer ABG pH POC ABG pCO2 POC ABG pO2 ABG pO2 ABG HCO3 ABG O2 Saturation ABG Base Excess ABG Oxyhemoglobin ABG Sodium ABG Chloride ABG Glucose Oxyhemoglobin Carboxyhemoglobin Sodium Potassium Chloride Carbon Dioxide BUN Creatinine Glucose POC Glucose 155 H 163 H 293 H Hemoglobin A1c Magnesium Ferritin AST ALT Alkaline Phosphatase Lactate Dehydrogenase C-Reactive Protein Total Protein Albumin Arterial Blood Glucose Coronavirus (PCR) 06/13/21 06/13/21 06/14/21 16:41 21:00 07:41 WBC MCV MCH MCHC RDW Lymph % (Auto) [place] % (Auto) Eos % (Auto) Lymph # (Auto) [place] # (Auto) Eos # (Auto) Baso # (Auto) Seg Neutrophils % Seg Neuts % (Manual) Lymphocytes % (Manual) Seg Neutrophils # Seg Neutrophils # Man Lymphocytes # (Manual) D-Dimer ABG pH POC ABG pCO2 POC ABG pO2 ABG pO2 ABG HCO3 ABG O2 Saturation ABG Base Excess ABG Oxyhemoglobin ABG Sodium ABG Chloride ABG Glucose Oxyhemoglobin Carboxyhemoglobin Sodium Potassium Chloride Carbon Dioxide BUN Creatinine Glucose POC Glucose 232 H 183 H 52 L Hemoglobin A1c Magnesium Ferritin AST ALT Alkaline Phosphatase Lactate Dehydrogenase C-Reactive Protein Total Protein Albumin Arterial Blood Glucose Coronavirus (PCR) 06/14/21 06/14/21 06/14/21 11:44 17:44 21:44 WBC MCV MCH MCHC RDW Lymph % (Auto) [place] % (Auto) Eos % (Auto) Lymph # (Auto) [place] # (Auto) Eos # (Auto) Baso # (Auto) Seg Neutrophils % Seg Neuts % (Manual) Lymphocytes % (Manual) Seg Neutrophils # Seg Neutrophils # Man Lymphocytes # (Manual) D-Dimer ABG pH POC ABG pCO2 POC ABG pO2 ABG pO2 ABG HCO3 ABG O2 Saturation ABG Base Excess ABG Oxyhemoglobin ABG Sodium ABG Chloride ABG Glucose Oxyhemoglobin Carboxyhemoglobin Sodium Potassium Chloride Carbon Dioxide BUN Creatinine Glucose POC Glucose 205 H 293 H 288 H Hemoglobin A1c Magnesium Ferritin AST ALT Alkaline Phosphatase Lactate Dehydrogenase C-Reactive Protein Total Protein Albumin Arterial Blood Glucose Coronavirus (PCR) 06/15/21 06/15/21 06/15/21 08:00 08:00 11:40 WBC MCV MCH 33 H MCHC 35 H RDW 20.3 H Lymph % (Auto) [place] % (Auto) Eos % (Auto) Lymph # (Auto) [place] # (Auto) Eos # (Auto) Baso # (Auto) Seg Neutrophils % Seg Neuts % (Manual) Lymphocytes % (Manual) Seg Neutrophils # Seg Neutrophils # Man Lymphocytes # (Manual) D-Dimer ABG pH POC ABG pCO2 POC ABG pO2 ABG pO2 ABG HCO3 ABG O2 Saturation ABG Base Excess ABG Oxyhemoglobin ABG Sodium ABG Chloride ABG Glucose Oxyhemoglobin Carboxyhemoglobin Sodium Potassium 3.2 L Chloride 95.3 L Carbon Dioxide 32 H BUN 23 H Creatinine 0.2 L Glucose 103 H POC Glucose 204 H Hemoglobin A1c Magnesium Ferritin AST ALT Alkaline Phosphatase Lactate Dehydrogenase C-Reactive Protein Total Protein Albumin Arterial Blood Glucose Coronavirus (PCR) 06/15/21 06/15/21 06/16/21 16:17 22:00 11:43 WBC MCV MCH MCHC RDW Lymph % (Auto) [place] % (Auto) Eos % (Auto) Lymph # (Auto) [place] # (Auto) Eos # (Auto) Baso # (Auto) Seg Neutrophils % Seg Neuts % (Manual) Lymphocytes % (Manual) Seg Neutrophils # Seg Neutrophils # Man Lymphocytes # (Manual) D-Dimer ABG pH POC ABG pCO2 POC ABG pO2 ABG pO2 ABG HCO3 ABG O2 Saturation ABG Base Excess ABG Oxyhemoglobin ABG Sodium ABG Chloride ABG Glucose Oxyhemoglobin Carboxyhemoglobin Sodium Potassium Chloride Carbon Dioxide BUN Creatinine Glucose POC Glucose 295 H 233 H 201 H Hemoglobin A1c Magnesium Ferritin AST ALT Alkaline Phosphatase Lactate Dehydrogenase C-Reactive Protein Total Protein Albumin Arterial Blood Glucose Coronavirus (PCR) 06/16/21 06/16/21 06/17/21 17:21 21:27 07:12 WBC MCV MCH MCHC RDW Lymph % (Auto) [place] % (Auto) Eos % (Auto) Lymph # (Auto) [place] # (Auto) Eos # (Auto) Baso # (Auto) Seg Neutrophils % Seg Neuts % (Manual) Lymphocytes % (Manual) Seg Neutrophils # Seg Neutrophils # Man Lymphocytes # (Manual) D-Dimer ABG pH POC ABG pCO2 POC ABG pO2 ABG pO2 ABG HCO3 ABG O2 Saturation ABG Base Excess ABG Oxyhemoglobin ABG Sodium ABG Chloride ABG Glucose Oxyhemoglobin Carboxyhemoglobin Sodium Potassium Chloride Carbon Dioxide BUN Creatinine Glucose POC Glucose 299 H 290 H 67 L Hemoglobin A1c Magnesium Ferritin AST ALT Alkaline Phosphatase Lactate Dehydrogenase C-Reactive Protein Total Protein Albumin Arterial Blood Glucose Coronavirus (PCR) 06/17/21 06/17/21 06/17/21 11:53 17:02 22:25 WBC MCV MCH MCHC RDW Lymph % (Auto) [place] % (Auto) Eos % (Auto) Lymph # (Auto) [place] # (Auto) Eos # (Auto) Baso # (Auto) Seg Neutrophils % Seg Neuts % (Manual) Lymphocytes % (Manual) Seg Neutrophils # Seg Neutrophils # Man Lymphocytes # (Manual) D-Dimer ABG pH POC ABG pCO2 POC ABG pO2 ABG pO2 ABG HCO3 ABG O2 Saturation ABG Base Excess ABG Oxyhemoglobin ABG Sodium ABG Chloride ABG Glucose Oxyhemoglobin Carboxyhemoglobin Sodium Potassium Chloride Carbon Dioxide BUN Creatinine Glucose POC Glucose 199 H 362 H 235 H Hemoglobin A1c Magnesium Ferritin AST ALT Alkaline Phosphatase Lactate Dehydrogenase C-Reactive Protein Total Protein Albumin Arterial Blood Glucose Coronavirus (PCR) 06/18/21 06/18/21 06/18/21 08:00 11:48 16:40 WBC MCV MCH MCHC RDW Lymph % (Auto) [place] % (Auto) Eos % (Auto) Lymph # (Auto) [place] # (Auto) Eos # (Auto) Baso # (Auto) Seg Neutrophils % Seg Neuts % (Manual) Lymphocytes % (Manual) Seg Neutrophils # Seg Neutrophils # Man Lymphocytes # (Manual) D-Dimer ABG pH POC ABG pCO2 POC ABG pO2 ABG pO2 ABG HCO3 ABG O2 Saturation ABG Base Excess ABG Oxyhemoglobin ABG Sodium ABG Chloride ABG Glucose Oxyhemoglobin Carboxyhemoglobin Sodium Potassium Chloride Carbon Dioxide BUN Creatinine Glucose POC Glucose 62 L 211 H 305 H Hemoglobin A1c Magnesium Ferritin AST ALT Alkaline Phosphatase Lactate Dehydrogenase C-Reactive Protein Total Protein Albumin Arterial Blood Glucose Coronavirus (PCR) 06/18/21 06/19/21 06/19/21 21:26 07:27 11:32 WBC MCV MCH MCHC RDW Lymph % (Auto) [place] % (Auto) Eos % (Auto) Lymph # (Auto) [place] # (Auto) Eos # (Auto) Baso # (Auto) Seg Neutrophils % Seg Neuts % (Manual) Lymphocytes % (Manual) Seg Neutrophils # Seg Neutrophils # Man Lymphocytes # (Manual) D-Dimer ABG pH POC ABG pCO2 POC ABG pO2 ABG pO2 ABG HCO3 ABG O2 Saturation ABG Base Excess ABG Oxyhemoglobin ABG Sodium ABG Chloride ABG Glucose Oxyhemoglobin Carboxyhemoglobin Sodium Potassium Chloride Carbon Dioxide BUN Creatinine Glucose POC Glucose 149 H 60 L 208 H Hemoglobin A1c Magnesium Ferritin AST ALT Alkaline Phosphatase Lactate Dehydrogenase C-Reactive Protein Total Protein Albumin Arterial Blood Glucose Coronavirus (PCR) 06/19/21 06/19/21 06/20/21 16:06 22:28 07:48 WBC MCV MCH MCHC RDW Lymph % (Auto) [place] % (Auto) Eos % (Auto) Lymph # (Auto) [place] # (Auto) Eos # (Auto) Baso # (Auto) Seg Neutrophils % Seg Neuts % (Manual) Lymphocytes % (Manual) Seg Neutrophils # Seg Neutrophils # Man Lymphocytes # (Manual) D-Dimer ABG pH POC ABG pCO2 POC ABG pO2 ABG pO2 ABG HCO3 ABG O2 Saturation ABG Base Excess ABG Oxyhemoglobin ABG Sodium ABG Chloride ABG Glucose Oxyhemoglobin Carboxyhemoglobin Sodium Potassium Chloride Carbon Dioxide BUN Creatinine Glucose POC Glucose 266 H 166 H 58 L Hemoglobin A1c Magnesium Ferritin AST ALT Alkaline Phosphatase Lactate Dehydrogenase C-Reactive Protein Total Protein Albumin Arterial Blood Glucose Coronavirus (PCR) 06/20/21 06/20/21 06/20/21 09:09 11:04 16:01 WBC MCV MCH MCHC RDW Lymph % (Auto) [place] % (Auto) Eos % (Auto) Lymph # (Auto) [place] # (Auto) Eos # (Auto) Baso # (Auto) Seg Neutrophils % Seg Neuts % (Manual) Lymphocytes % (Manual) Seg Neutrophils # Seg Neutrophils # Man Lymphocytes # (Manual) D-Dimer ABG pH POC ABG pCO2 POC ABG pO2 ABG pO2 ABG HCO3 ABG O2 Saturation ABG Base Excess ABG Oxyhemoglobin ABG Sodium ABG Chloride ABG Glucose Oxyhemoglobin Carboxyhemoglobin Sodium Potassium Chloride Carbon Dioxide BUN Creatinine Glucose POC Glucose 146 H 225 H 330 H Hemoglobin A1c Magnesium Ferritin AST ALT Alkaline Phosphatase Lactate Dehydrogenase C-Reactive Protein Total Protein Albumin Arterial Blood Glucose Coronavirus (PCR) 06/20/21 06/21/21 06/21/21 20:46 06:45 06:45 WBC MCV MCH MCHC RDW 20.0 H Lymph % (Auto) [place] % (Auto) Eos % (Auto) Lymph # (Auto) [place] # (Auto) Eos # (Auto) Baso # (Auto) Seg Neutrophils % Seg Neuts % (Manual) Lymphocytes % (Manual) Seg Neutrophils # Seg Neutrophils # Man Lymphocytes # (Manual) D-Dimer ABG pH POC ABG pCO2 POC ABG pO2 ABG pO2 ABG HCO3 ABG O2 Saturation ABG Base Excess ABG Oxyhemoglobin ABG Sodium ABG Chloride ABG Glucose Oxyhemoglobin Carboxyhemoglobin Sodium Potassium 2.9 L* Chloride 95.0 L Carbon Dioxide 31 H BUN 23 H Creatinine 0.2 L Glucose 45 L POC Glucose 215 H Hemoglobin A1c Magnesium Ferritin AST ALT Alkaline Phosphatase Lactate Dehydrogenase C-Reactive Protein Total Protein Albumin Arterial Blood Glucose Coronavirus (PCR) 06/21/21 06/21/21 06/21/21 07:38 09:06 12:40 WBC MCV MCH MCHC RDW Lymph % (Auto) [place] % (Auto) Eos % (Auto) Lymph # (Auto) [place] # (Auto) Eos # (Auto) Baso # (Auto) Seg Neutrophils % Seg Neuts % (Manual) Lymphocytes % (Manual) Seg Neutrophils # Seg Neutrophils # Man Lymphocytes # (Manual) D-Dimer ABG pH POC ABG pCO2 POC ABG pO2 ABG pO2 ABG HCO3 ABG O2 Saturation ABG Base Excess ABG Oxyhemoglobin ABG Sodium ABG Chloride ABG Glucose Oxyhemoglobin Carboxyhemoglobin Sodium Potassium Chloride Carbon Dioxide BUN Creatinine Glucose POC Glucose 50 L 196 H 205 H Hemoglobin A1c Magnesium Ferritin AST ALT Alkaline Phosphatase Lactate Dehydrogenase C-Reactive Protein Total Protein Albumin Arterial Blood Glucose Coronavirus (PCR) 06/21/21 06/22/21 06/22/21 21:36 06:25 07:15 WBC MCV MCH MCHC RDW Lymph % (Auto) [place] % (Auto) Eos % (Auto) Lymph # (Auto) [place] # (Auto) Eos # (Auto) Baso # (Auto) Seg Neutrophils % Seg Neuts % (Manual) Lymphocytes % (Manual) Seg Neutrophils # Seg Neutrophils # Man Lymphocytes # (Manual) D-Dimer ABG pH POC ABG pCO2 POC ABG pO2 ABG pO2 ABG HCO3 ABG O2 Saturation ABG Base Excess ABG Oxyhemoglobin ABG Sodium ABG Chloride ABG Glucose Oxyhemoglobin Carboxyhemoglobin Sodium Potassium Chloride Carbon Dioxide BUN 20 H Creatinine 0.2 L Glucose POC Glucose 245 H 66 L Hemoglobin A1c Magnesium Ferritin AST ALT Alkaline Phosphatase Lactate Dehydrogenase C-Reactive Protein Total Protein Albumin Arterial Blood Glucose Coronavirus (PCR) 06/22/21 06/22/21 06/22/21 11:03 16:07 22:03 WBC MCV MCH MCHC RDW Lymph % (Auto) [place] % (Auto) Eos % (Auto) Lymph # (Auto) [place] # (Auto) Eos # (Auto) Baso # (Auto) Seg Neutrophils % Seg Neuts % (Manual) Lymphocytes % (Manual) Seg Neutrophils # Seg Neutrophils # Man Lymphocytes # (Manual) D-Dimer ABG pH POC ABG pCO2 POC ABG pO2 ABG pO2 ABG HCO3 ABG O2 Saturation ABG Base Excess ABG Oxyhemoglobin ABG Sodium ABG Chloride ABG Glucose Oxyhemoglobin Carboxyhemoglobin Sodium Potassium Chloride Carbon Dioxide BUN Creatinine Glucose POC Glucose 184 H 326 H 138 H Hemoglobin A1c Magnesium Ferritin AST ALT Alkaline Phosphatase Lactate Dehydrogenase C-Reactive Protein Total Protein Albumin Arterial Blood Glucose Coronavirus (PCR) 06/23/21 06/23/21 06/23/21 07:19 10:34 16:35 WBC MCV MCH MCHC RDW Lymph % (Auto) [place] % (Auto) Eos % (Auto) Lymph # (Auto) [place] # (Auto) Eos # (Auto) Baso # (Auto) Seg Neutrophils % Seg Neuts % (Manual) Lymphocytes % (Manual) Seg Neutrophils # Seg Neutrophils # Man Lymphocytes # (Manual) D-Dimer ABG pH POC ABG pCO2 POC ABG pO2 ABG pO2 ABG HCO3 ABG O2 Saturation ABG Base Excess ABG Oxyhemoglobin ABG Sodium ABG Chloride ABG Glucose Oxyhemoglobin Carboxyhemoglobin Sodium Potassium Chloride Carbon Dioxide BUN Creatinine Glucose POC Glucose 69 L 218 H 326 H Hemoglobin A1c Magnesium Ferritin AST ALT Alkaline Phosphatase Lactate Dehydrogenase C-Reactive Protein Total Protein Albumin Arterial Blood Glucose Coronavirus (PCR) 06/23/21 06/24/21 06/24/21 22:44 11:41 16:54 WBC MCV MCH MCHC RDW Lymph % (Auto) [place] % (Auto) Eos % (Auto) Lymph # (Auto) [place] # (Auto) Eos # (Auto) Baso # (Auto) Seg Neutrophils % Seg Neuts % (Manual) Lymphocytes % (Manual) Seg Neutrophils # Seg Neutrophils # Man Lymphocytes # (Manual) D-Dimer ABG pH POC ABG pCO2 POC ABG pO2 ABG pO2 ABG HCO3 ABG O2 Saturation ABG Base Excess ABG Oxyhemoglobin ABG Sodium ABG Chloride ABG Glucose Oxyhemoglobin Carboxyhemoglobin Sodium Potassium Chloride Carbon Dioxide BUN Creatinine Glucose POC Glucose 252 H 217 H 357 H Hemoglobin A1c Magnesium Ferritin AST ALT Alkaline Phosphatase Lactate Dehydrogenase C-Reactive Protein Total Protein Albumin Arterial Blood Glucose Coronavirus (PCR) 06/24/21 06/25/21 06/25/21 20:40 11:51 16:47 WBC MCV MCH MCHC RDW Lymph % (Auto) [place] % (Auto) Eos % (Auto) Lymph # (Auto) [place] # (Auto) Eos # (Auto) Baso # (Auto) Seg Neutrophils % Seg Neuts % (Manual) Lymphocytes % (Manual) Seg Neutrophils # Seg Neutrophils # Man Lymphocytes # (Manual) D-Dimer ABG pH POC ABG pCO2 POC ABG pO2 ABG pO2 ABG HCO3 ABG O2 Saturation ABG Base Excess ABG Oxyhemoglobin ABG Sodium ABG Chloride ABG Glucose Oxyhemoglobin Carboxyhemoglobin Sodium Potassium Chloride Carbon Dioxide BUN Creatinine Glucose POC Glucose 239 H 182 H 229 H Hemoglobin A1c Magnesium Ferritin AST ALT Alkaline Phosphatase Lactate Dehydrogenase C-Reactive Protein Total Protein Albumin Arterial Blood Glucose Coronavirus (PCR) 06/25/21 06/26/21 06/26/21 22:27 07:20 12:19 WBC MCV MCH MCHC RDW Lymph % (Auto) [place] % (Auto) Eos % (Auto) Lymph # (Auto) [place] # (Auto) Eos # (Auto) Baso # (Auto) Seg Neutrophils % Seg Neuts % (Manual) Lymphocytes % (Manual) Seg Neutrophils # Seg Neutrophils # Man Lymphocytes # (Manual) D-Dimer ABG pH POC ABG pCO2 POC ABG pO2 ABG pO2 ABG HCO3 ABG O2 Saturation ABG Base Excess ABG Oxyhemoglobin ABG Sodium ABG Chloride ABG Glucose Oxyhemoglobin Carboxyhemoglobin Sodium Potassium 3.2 L D Chloride Carbon Dioxide BUN 20 H Creatinine 0.3 L Glucose POC Glucose 209 H 273 H Hemoglobin A1c Magnesium Ferritin AST ALT 77 H Alkaline Phosphatase Lactate Dehydrogenase C-Reactive Protein Total Protein Albumin 3.3 L Arterial Blood Glucose Coronavirus (PCR) 06/26/21 06/26/21 06/27/21 16:52 20:55 07:14 WBC MCV MCH MCHC RDW Lymph % (Auto) [place] % (Auto) Eos % (Auto) Lymph # (Auto) [place] # (Auto) Eos # (Auto) Baso # (Auto) Seg Neutrophils % Seg Neuts % (Manual) Lymphocytes % (Manual) Seg Neutrophils # Seg Neutrophils # Man Lymphocytes # (Manual) D-Dimer ABG pH POC ABG pCO2 POC ABG pO2 ABG pO2 ABG HCO3 ABG O2 Saturation ABG Base Excess ABG Oxyhemoglobin ABG Sodium ABG Chloride ABG Glucose Oxyhemoglobin Carboxyhemoglobin Sodium Potassium Chloride Carbon Dioxide 31 H BUN 19 H Creatinine 0.2 L Glucose 112 H POC Glucose 326 H 220 H Hemoglobin A1c Magnesium Ferritin AST ALT Alkaline Phosphatase Lactate Dehydrogenase C-Reactive Protein Total Protein Albumin Arterial Blood Glucose Coronavirus (PCR) 06/27/21 06/27/21 06/27/21 07:29 10:54 15:49 WBC MCV MCH MCHC RDW Lymph % (Auto) [place] % (Auto) Eos % (Auto) Lymph # (Auto) [place] # (Auto) Eos # (Auto) Baso # (Auto) Seg Neutrophils % Seg Neuts % (Manual) Lymphocytes % (Manual) Seg Neutrophils # Seg Neutrophils # Man Lymphocytes # (Manual) D-Dimer ABG pH POC ABG pCO2 POC ABG pO2 ABG pO2 ABG HCO3 ABG O2 Saturation ABG Base Excess ABG Oxyhemoglobin ABG Sodium ABG Chloride ABG Glucose Oxyhemoglobin Carboxyhemoglobin Sodium Potassium Chloride Carbon Dioxide BUN Creatinine Glucose POC Glucose 115 H 228 H 240 H Hemoglobin A1c Magnesium Ferritin AST ALT Alkaline Phosphatase Lactate Dehydrogenase C-Reactive Protein Total Protein Albumin Arterial Blood Glucose Coronavirus (PCR) 06/28/21 06/28/21 06/28/21 05:43 05:43 07:13 WBC MCV MCH 33 H MCHC RDW 19.8 H Lymph % (Auto) [place] % (Auto) Eos % (Auto) Lymph # (Auto) [place] # (Auto) Eos # (Auto) Baso # (Auto) Seg Neutrophils % Seg Neuts % (Manual) Lymphocytes % (Manual) Seg Neutrophils # Seg Neutrophils # Man Lymphocytes # (Manual) D-Dimer ABG pH POC ABG pCO2 POC ABG pO2 ABG pO2 ABG HCO3 ABG O2 Saturation ABG Base Excess ABG Oxyhemoglobin ABG Sodium ABG Chloride ABG Glucose Oxyhemoglobin Carboxyhemoglobin Sodium Potassium 3.3 L Chloride Carbon Dioxide BUN 22 H Creatinine 0.2 L Glucose POC Glucose 69 L Hemoglobin A1c Magnesium Ferritin AST ALT 63 H Alkaline Phosphatase Lactate Dehydrogenase C-Reactive Protein Total Protein Albumin 3.3 L Arterial Blood Glucose Coronavirus (PCR) 06/28/21 06/28/21 06/28/21 12:18 15:37 21:01 WBC MCV MCH MCHC RDW Lymph % (Auto) [place] % (Auto) Eos % (Auto) Lymph # (Auto) [place] # (Auto) Eos # (Auto) Baso # (Auto) Seg Neutrophils % Seg Neuts % (Manual) Lymphocytes % (Manual) Seg Neutrophils # Seg Neutrophils # Man Lymphocytes # (Manual) D-Dimer ABG pH POC ABG pCO2 POC ABG pO2 ABG pO2 ABG HCO3 ABG O2 Saturation ABG Base Excess ABG Oxyhemoglobin ABG Sodium ABG Chloride ABG Glucose Oxyhemoglobin Carboxyhemoglobin Sodium Potassium Chloride Carbon Dioxide BUN Creatinine Glucose POC Glucose 154 H 201 H 191 H Hemoglobin A1c Magnesium Ferritin AST ALT Alkaline Phosphatase Lactate Dehydrogenase C-Reactive Protein Total Protein Albumin Arterial Blood Glucose Coronavirus (PCR) 06/29/21 06/29/21 06/29/21 11:55 15:47 21:06 WBC MCV MCH MCHC RDW Lymph % (Auto) [place] % (Auto) Eos % (Auto) Lymph # (Auto) [place] # (Auto) Eos # (Auto) Baso # (Auto) Seg Neutrophils % Seg Neuts % (Manual) Lymphocytes % (Manual) Seg Neutrophils # Seg Neutrophils # Man Lymphocytes # (Manual) D-Dimer ABG pH POC ABG pCO2 POC ABG pO2 ABG pO2 ABG HCO3 ABG O2 Saturation ABG Base Excess ABG Oxyhemoglobin ABG Sodium ABG Chloride ABG Glucose Oxyhemoglobin Carboxyhemoglobin Sodium Potassium Chloride Carbon Dioxide BUN Creatinine Glucose POC Glucose 238 H 249 H 155 H Hemoglobin A1c Magnesium Ferritin AST ALT Alkaline Phosphatase Lactate Dehydrogenase C-Reactive Protein Total Protein Albumin Arterial Blood Glucose Coronavirus (PCR) 06/30/21 06/30/21 06/30/21 04:00 07:50 11:50 WBC MCV MCH MCHC RDW Lymph % (Auto) [place] % (Auto) Eos % (Auto) Lymph # (Auto) [place] # (Auto) Eos # (Auto) Baso # (Auto) Seg Neutrophils % Seg Neuts % (Manual) Lymphocytes % (Manual) Seg Neutrophils # Seg Neutrophils # Man Lymphocytes # (Manual) D-Dimer ABG pH POC ABG pCO2 POC ABG pO2 ABG pO2 ABG HCO3 ABG O2 Saturation ABG Base Excess ABG Oxyhemoglobin ABG Sodium ABG Chloride ABG Glucose Oxyhemoglobin Carboxyhemoglobin Sodium Potassium 3.5 L Chloride Carbon Dioxide BUN 18 H Creatinine 0.3 L Glucose 111 H POC Glucose 117 H 250 H Hemoglobin A1c Magnesium Ferritin AST ALT Alkaline Phosphatase Lactate Dehydrogenase C-Reactive Protein Total Protein Albumin Arterial Blood Glucose Coronavirus (PCR) 06/30/21 06/30/21 07/01/21 16:05 21:02 07:26 WBC MCV MCH MCHC RDW Lymph % (Auto) [place] % (Auto) Eos % (Auto) Lymph # (Auto) [place] # (Auto) Eos # (Auto) Baso # (Auto) Seg Neutrophils % Seg Neuts % (Manual) Lymphocytes % (Manual) Seg Neutrophils # Seg Neutrophils # Man Lymphocytes # (Manual) D-Dimer ABG pH POC ABG pCO2 POC ABG pO2 ABG pO2 ABG HCO3 ABG O2 Saturation ABG Base Excess ABG Oxyhemoglobin ABG Sodium ABG Chloride ABG Glucose Oxyhemoglobin Carboxyhemoglobin Sodium Potassium Chloride Carbon Dioxide BUN Creatinine Glucose POC Glucose 250 H 217 H 111 H Hemoglobin A1c Magnesium Ferritin AST ALT Alkaline Phosphatase Lactate Dehydrogenase C-Reactive Protein Total Protein Albumin Arterial Blood Glucose Coronavirus (PCR) 07/01/21 07/01/21 07/01/21 11:06 15:48 21:31 WBC MCV MCH MCHC RDW Lymph % (Auto) [place] % (Auto) Eos % (Auto) Lymph # (Auto) [place] # (Auto) Eos # (Auto) Baso # (Auto) Seg Neutrophils % Seg Neuts % (Manual) Lymphocytes % (Manual) Seg Neutrophils # Seg Neutrophils # Man Lymphocytes # (Manual) D-Dimer ABG pH POC ABG pCO2 POC ABG pO2 ABG pO2 ABG HCO3 ABG O2 Saturation ABG Base Excess ABG Oxyhemoglobin ABG Sodium ABG Chloride ABG Glucose Oxyhemoglobin Carboxyhemoglobin Sodium Potassium Chloride Carbon Dioxide BUN Creatinine Glucose POC Glucose 229 H 239 H 199 H Hemoglobin A1c Magnesium Ferritin AST ALT Alkaline Phosphatase Lactate Dehydrogenase C-Reactive Protein Total Protein Albumin Arterial Blood Glucose Coronavirus (PCR) 07/02/21 07/02/21 07/02/21 11:50 16:44 21:49 WBC MCV MCH MCHC RDW Lymph % (Auto) [place] % (Auto) Eos % (Auto) Lymph # (Auto) [place] # (Auto) Eos # (Auto) Baso # (Auto) Seg Neutrophils % Seg Neuts % (Manual) Lymphocytes % (Manual) Seg Neutrophils # Seg Neutrophils # Man Lymphocytes # (Manual) D-Dimer ABG pH POC ABG pCO2 POC ABG pO2 ABG pO2 ABG HCO3 ABG O2 Saturation ABG Base Excess ABG Oxyhemoglobin ABG Sodium ABG Chloride ABG Glucose Oxyhemoglobin Carboxyhemoglobin Sodium Potassium Chloride Carbon Dioxide BUN Creatinine Glucose POC Glucose 230 H 203 H 197 H Hemoglobin A1c Magnesium Ferritin AST ALT Alkaline Phosphatase Lactate Dehydrogenase C-Reactive Protein Total Protein Albumin Arterial Blood Glucose Coronavirus (PCR) 07/03/21 07/03/21 07/03/21 05:46 05:46 11:59 WBC MCV MCH MCHC RDW 19.6 H Lymph % (Auto) [place] % (Auto) Eos % (Auto) Lymph # (Auto) [place] # (Auto) Eos # (Auto) Baso # (Auto) Seg Neutrophils % Seg Neuts % (Manual) Lymphocytes % (Manual) Seg Neutrophils # Seg Neutrophils # Man Lymphocytes # (Manual) D-Dimer ABG pH POC ABG pCO2 POC ABG pO2 ABG pO2 ABG HCO3 ABG O2 Saturation ABG Base Excess ABG Oxyhemoglobin ABG Sodium ABG Chloride ABG Glucose Oxyhemoglobin Carboxyhemoglobin Sodium Potassium 3.2 L Chloride Carbon Dioxide BUN Creatinine 0.3 L Glucose POC Glucose 145 H Hemoglobin A1c Magnesium Ferritin AST ALT Alkaline Phosphatase Lactate Dehydrogenase C-Reactive Protein Total Protein Albumin Arterial Blood Glucose Coronavirus (PCR) 07/03/21 07/03/21 07/04/21 16:40 22:00 06:35 WBC MCV MCH MCHC RDW Lymph % (Auto) [place] % (Auto) Eos % (Auto) Lymph # (Auto) [place] # (Auto) Eos # (Auto) Baso # (Auto) Seg Neutrophils % Seg Neuts % (Manual) Lymphocytes % (Manual) Seg Neutrophils # Seg Neutrophils # Man Lymphocytes # (Manual) D-Dimer ABG pH POC ABG pCO2 POC ABG pO2 ABG pO2 ABG HCO3 ABG O2 Saturation ABG Base Excess ABG Oxyhemoglobin ABG Sodium ABG Chloride ABG Glucose Oxyhemoglobin Carboxyhemoglobin Sodium Potassium Chloride Carbon Dioxide BUN Creatinine 0.3 L Glucose 118 H POC Glucose 176 H 127 H Hemoglobin A1c Magnesium Ferritin AST ALT Alkaline Phosphatase Lactate Dehydrogenase C-Reactive Protein Total Protein Albumin Arterial Blood Glucose Coronavirus (PCR) 07/04/21 07/04/21 07/05/21 12:30 16:38 08:37 WBC MCV MCH MCHC RDW Lymph % (Auto) [place] % (Auto) Eos % (Auto) Lymph # (Auto) [place] # (Auto) Eos # (Auto) Baso # (Auto) Seg Neutrophils % Seg Neuts % (Manual) Lymphocytes % (Manual) Seg Neutrophils # Seg Neutrophils # Man Lymphocytes # (Manual) D-Dimer ABG pH POC ABG pCO2 POC ABG pO2 ABG pO2 ABG HCO3 ABG O2 Saturation ABG Base Excess ABG Oxyhemoglobin ABG Sodium ABG Chloride ABG Glucose Oxyhemoglobin Carboxyhemoglobin Sodium Potassium Chloride Carbon Dioxide BUN Creatinine Glucose POC Glucose 162 H 205 H 115 H Hemoglobin A1c Magnesium Ferritin AST ALT Alkaline Phosphatase Lactate Dehydrogenase C-Reactive Protein Total Protein Albumin Arterial Blood Glucose Coronavirus (PCR) 07/05/21 07/05/21 07/05/21 10:57 16:42 21:14 WBC MCV MCH MCHC RDW Lymph % (Auto) [place] % (Auto) Eos % (Auto) Lymph # (Auto) [place] # (Auto) Eos # (Auto) Baso # (Auto) Seg Neutrophils % Seg Neuts % (Manual) Lymphocytes % (Manual) Seg Neutrophils # Seg Neutrophils # Man Lymphocytes # (Manual) D-Dimer ABG pH POC ABG pCO2 POC ABG pO2 ABG pO2 ABG HCO3 ABG O2 Saturation ABG Base Excess ABG Oxyhemoglobin ABG Sodium ABG Chloride ABG Glucose Oxyhemoglobin Carboxyhemoglobin Sodium Potassium Chloride Carbon Dioxide BUN Creatinine Glucose POC Glucose 151 H 184 H 130 H Hemoglobin A1c Magnesium Ferritin AST ALT Alkaline Phosphatase Lactate Dehydrogenase C-Reactive Protein Total Protein Albumin Arterial Blood Glucose Coronavirus (PCR) 07/06/21 07/06/21 07/06/21 07:31 11:49 16:46 WBC MCV MCH MCHC RDW Lymph % (Auto) [place] % (Auto) Eos % (Auto) Lymph # (Auto) [place] # (Auto) Eos # (Auto) Baso # (Auto) Seg Neutrophils % Seg Neuts % (Manual) Lymphocytes % (Manual) Seg Neutrophils # Seg Neutrophils # Man Lymphocytes # (Manual) D-Dimer ABG pH POC ABG pCO2 POC ABG pO2 ABG pO2 ABG HCO3 ABG O2 Saturation ABG Base Excess ABG Oxyhemoglobin ABG Sodium ABG Chloride ABG Glucose Oxyhemoglobin Carboxyhemoglobin Sodium Potassium Chloride Carbon Dioxide BUN Creatinine Glucose POC Glucose 106 H 173 H 205 H Hemoglobin A1c Magnesium Ferritin AST ALT Alkaline Phosphatase Lactate Dehydrogenase C-Reactive Protein Total Protein Albumin Arterial Blood Glucose Coronavirus (PCR) 07/06/21 07/07/21 07/07/21 21:38 06:00 06:00 WBC 16.1 H MCV MCH MCHC RDW 18.8 H Lymph % (Auto) [place] % (Auto) Eos % (Auto) Lymph # (Auto) [place] # (Auto) 1.1 H Eos # (Auto) Baso # (Auto) 0.2 H Seg Neutrophils % 74.9 H Seg Neuts % (Manual) Lymphocytes % (Manual) Seg Neutrophils # 12.1 H Seg Neutrophils # Man Lymphocytes # (Manual) D-Dimer ABG pH POC ABG pCO2 POC ABG pO2 ABG pO2 ABG HCO3 ABG O2 Saturation ABG Base Excess ABG Oxyhemoglobin ABG Sodium ABG Chloride ABG Glucose Oxyhemoglobin Carboxyhemoglobin Sodium Potassium 3.5 L D Chloride Carbon Dioxide BUN 6 L Creatinine < 0.2 L Glucose 106 H POC Glucose 120 H Hemoglobin A1c Magnesium Ferritin AST ALT Alkaline Phosphatase Lactate Dehydrogenase C-Reactive Protein Total Protein Albumin Arterial Blood Glucose Coronavirus (PCR) 07/07/21 07/07/21 07/07/21 07:10 11:53 15:53 WBC MCV MCH MCHC RDW Lymph % (Auto) [place] % (Auto) Eos % (Auto) Lymph # (Auto) [place] # (Auto) Eos # (Auto) Baso # (Auto) Seg Neutrophils % Seg Neuts % (Manual) Lymphocytes % (Manual) Seg Neutrophils # Seg Neutrophils # Man Lymphocytes # (Manual) D-Dimer ABG pH POC ABG pCO2 POC ABG pO2 ABG pO2 ABG HCO3 ABG O2 Saturation ABG Base Excess ABG Oxyhemoglobin ABG Sodium ABG Chloride ABG Glucose Oxyhemoglobin Carboxyhemoglobin Sodium Potassium Chloride Carbon Dioxide BUN Creatinine Glucose POC Glucose 132 H 169 H 242 H Hemoglobin A1c Magnesium Ferritin AST ALT Alkaline Phosphatase Lactate Dehydrogenase C-Reactive Protein Total Protein Albumin Arterial Blood Glucose Coronavirus (PCR) 07/07/21 07/08/21 07/08/21 21:41 08:09 12:20 WBC MCV MCH MCHC RDW Lymph % (Auto) [place] % (Auto) Eos % (Auto) Lymph # (Auto) [place] # (Auto) Eos # (Auto) Baso # (Auto) Seg Neutrophils % Seg Neuts % (Manual) Lymphocytes % (Manual) Seg Neutrophils # Seg Neutrophils # Man Lymphocytes # (Manual) D-Dimer ABG pH POC ABG pCO2 POC ABG pO2 ABG pO2 ABG HCO3 ABG O2 Saturation ABG Base Excess ABG Oxyhemoglobin ABG Sodium ABG Chloride ABG Glucose Oxyhemoglobin Carboxyhemoglobin Sodium Potassium Chloride Carbon Dioxide BUN Creatinine Glucose POC Glucose 128 H 132 H 179 H Hemoglobin A1c Magnesium Ferritin AST ALT Alkaline Phosphatase Lactate Dehydrogenase C-Reactive Protein Total Protein Albumin Arterial Blood Glucose Coronavirus (PCR) 07/08/21 07/08/21 07/08/21 16:37 21:45 22:44 WBC MCV MCH MCHC RDW Lymph % (Auto) [place] % (Auto) Eos % (Auto) Lymph # (Auto) [place] # (Auto) Eos # (Auto) Baso # (Auto) Seg Neutrophils % Seg Neuts % (Manual) Lymphocytes % (Manual) Seg Neutrophils # Seg Neutrophils # Man Lymphocytes # (Manual) D-Dimer ABG pH POC ABG pCO2 POC ABG pO2 ABG pO2 ABG HCO3 ABG O2 Saturation ABG Base Excess ABG Oxyhemoglobin ABG Sodium ABG Chloride ABG Glucose Oxyhemoglobin Carboxyhemoglobin Sodium Potassium Chloride Carbon Dioxide BUN Creatinine Glucose POC Glucose 192 H 51 L 137 H Hemoglobin A1c Magnesium Ferritin AST ALT Alkaline Phosphatase Lactate Dehydrogenase C-Reactive Protein Total Protein Albumin Arterial Blood Glucose Coronavirus (PCR) 07/09/21 07/09/21 07/09/21 04:45 04:45 04:45 WBC MCV MCH MCHC RDW 18.3 H Lymph % (Auto) [place] % (Auto) Eos % (Auto) Lymph # (Auto) [place] # (Auto) Eos # (Auto) Baso # (Auto) Seg Neutrophils % Seg Neuts % (Manual) 82.0 H Lymphocytes % (Manual) 13.0 L Seg Neutrophils # Seg Neutrophils # Man 7.8 H Lymphocytes # (Manual) D-Dimer 638.35 H ABG pH POC ABG pCO2 POC ABG pO2 ABG pO2 ABG HCO3 ABG O2 Saturation ABG Base Excess ABG Oxyhemoglobin ABG Sodium ABG Chloride ABG Glucose Oxyhemoglobin Carboxyhemoglobin Sodium Potassium Chloride 96.9 L Carbon Dioxide 35 H BUN Creatinine 0.2 L Glucose 135 H POC Glucose Hemoglobin A1c Magnesium Ferritin AST ALT Alkaline Phosphatase Lactate Dehydrogenase C-Reactive Protein 4.30 H Total Protein Albumin Arterial Blood Glucose Coronavirus (PCR) 07/09/21 07/09/21 07/09/21 05:19 07:36 11:16 WBC MCV MCH MCHC RDW Lymph % (Auto) [place] % (Auto) Eos % (Auto) Lymph # (Auto) [place] # (Auto) Eos # (Auto) Baso # (Auto) Seg Neutrophils % Seg Neuts % (Manual) Lymphocytes % (Manual) Seg Neutrophils # Seg Neutrophils # Man Lymphocytes # (Manual) D-Dimer ABG pH POC ABG pCO2 POC ABG pO2 ABG pO2 ABG HCO3 ABG O2 Saturation ABG Base Excess ABG Oxyhemoglobin ABG Sodium ABG Chloride ABG Glucose Oxyhemoglobin Carboxyhemoglobin Sodium Potassium Chloride Carbon Dioxide BUN Creatinine Glucose POC Glucose 135 H 148 H 212 H Hemoglobin A1c Magnesium Ferritin AST ALT Alkaline Phosphatase Lactate Dehydrogenase C-Reactive Protein Total Protein Albumin Arterial Blood Glucose Coronavirus (PCR) 07/09/21 07/09/21 07/10/21 15:21 21:12 05:40 WBC MCV MCH MCHC RDW Lymph % (Auto) [place] % (Auto) Eos % (Auto) Lymph # (Auto) [place] # (Auto) Eos # (Auto) Baso # (Auto) Seg Neutrophils % Seg Neuts % (Manual) Lymphocytes % (Manual) Seg Neutrophils # Seg Neutrophils # Man Lymphocytes # (Manual) D-Dimer ABG pH POC ABG pCO2 POC ABG pO2 ABG pO2 ABG HCO3 ABG O2 Saturation ABG Base Excess ABG Oxyhemoglobin ABG Sodium ABG Chloride ABG Glucose Oxyhemoglobin Carboxyhemoglobin Sodium Potassium 3.3 L Chloride 95.1 L Carbon Dioxide 39 H BUN Creatinine 0.2 L Glucose 122 H POC Glucose 128 H 196 H Hemoglobin A1c Magnesium Ferritin AST ALT Alkaline Phosphatase Lactate Dehydrogenase C-Reactive Protein Total Protein Albumin Arterial Blood Glucose Coronavirus (PCR) 07/10/21 07/10/21 07/10/21 07:38 11:15 16:29 WBC MCV MCH MCHC RDW Lymph % (Auto) [place] % (Auto) Eos % (Auto) Lymph # (Auto) [place] # (Auto) Eos # (Auto) Baso # (Auto) Seg Neutrophils % Seg Neuts % (Manual) Lymphocytes % (Manual) Seg Neutrophils # Seg Neutrophils # Man Lymphocytes # (Manual) D-Dimer ABG pH POC ABG pCO2 POC ABG pO2 ABG pO2 ABG HCO3 ABG O2 Saturation ABG Base Excess ABG Oxyhemoglobin ABG Sodium ABG Chloride ABG Glucose Oxyhemoglobin Carboxyhemoglobin Sodium Potassium Chloride Carbon Dioxide BUN Creatinine Glucose POC Glucose 128 H 175 H 174 H Hemoglobin A1c Magnesium Ferritin AST ALT Alkaline Phosphatase Lactate Dehydrogenase C-Reactive Protein Total Protein Albumin Arterial Blood Glucose Coronavirus (PCR) 07/10/21 07/11/21 07/11/21 20:49 05:50 12:08 WBC MCV MCH MCHC RDW Lymph % (Auto) [place] % (Auto) Eos % (Auto) Lymph # (Auto) [place] # (Auto) Eos # (Auto) Baso # (Auto) Seg Neutrophils % Seg Neuts % (Manual) Lymphocytes % (Manual) Seg Neutrophils # Seg Neutrophils # Man Lymphocytes # (Manual) D-Dimer ABG pH POC ABG pCO2 POC ABG pO2 ABG pO2 ABG HCO3 ABG O2 Saturation ABG Base Excess ABG Oxyhemoglobin ABG Sodium ABG Chloride ABG Glucose Oxyhemoglobin Carboxyhemoglobin Sodium Potassium Chloride 97.3 L Carbon Dioxide 34 H BUN Creatinine 0.2 L Glucose 109 H POC Glucose 142 H 220 H Hemoglobin A1c Magnesium Ferritin AST ALT Alkaline Phosphatase Lactate Dehydrogenase C-Reactive Protein Total Protein Albumin Arterial Blood Glucose Coronavirus (PCR) 07/11/21 07/11/21 07/12/21 17:09 21:55 07:36 WBC MCV MCH MCHC RDW Lymph % (Auto) [place] % (Auto) Eos % (Auto) Lymph # (Auto) [place] # (Auto) Eos # (Auto) Baso # (Auto) Seg Neutrophils % Seg Neuts % (Manual) Lymphocytes % (Manual) Seg Neutrophils # Seg Neutrophils # Man Lymphocytes # (Manual) D-Dimer ABG pH POC ABG pCO2 POC ABG pO2 ABG pO2 ABG HCO3 ABG O2 Saturation ABG Base Excess ABG Oxyhemoglobin ABG Sodium ABG Chloride ABG Glucose Oxyhemoglobin Carboxyhemoglobin Sodium Potassium Chloride Carbon Dioxide BUN Creatinine Glucose POC Glucose 219 H 124 H 114 H Hemoglobin A1c Magnesium Ferritin AST ALT Alkaline Phosphatase Lactate Dehydrogenase C-Reactive Protein Total Protein Albumin Arterial Blood Glucose Coronavirus (PCR) 07/12/21 07/12/21 07/12/21 11:08 15:43 22:20 WBC MCV MCH MCHC RDW Lymph % (Auto) [place] % (Auto) Eos % (Auto) Lymph # (Auto) [place] # (Auto) Eos # (Auto) Baso # (Auto) Seg Neutrophils % Seg Neuts % (Manual) Lymphocytes % (Manual) Seg Neutrophils # Seg Neutrophils # Man Lymphocytes # (Manual) D-Dimer ABG pH POC ABG pCO2 POC ABG pO2 ABG pO2 ABG HCO3 ABG O2 Saturation ABG Base Excess ABG Oxyhemoglobin ABG Sodium ABG Chloride ABG Glucose Oxyhemoglobin Carboxyhemoglobin Sodium Potassium Chloride Carbon Dioxide BUN Creatinine Glucose POC Glucose 195 H 276 H 189 H Hemoglobin A1c Magnesium Ferritin AST ALT Alkaline Phosphatase Lactate Dehydrogenase C-Reactive Protein Total Protein Albumin Arterial Blood Glucose Coronavirus (PCR) 07/13/21 07/13/21 07/13/21 08:01 08:08 10:17 WBC MCV MCH MCHC RDW Lymph % (Auto) [place] % (Auto) Eos % (Auto) Lymph # (Auto) [place] # (Auto) Eos # (Auto) Baso # (Auto) Seg Neutrophils % Seg Neuts % (Manual) Lymphocytes % (Manual) Seg Neutrophils # Seg Neutrophils # Man Lymphocytes # (Manual) D-Dimer ABG pH POC ABG pCO2 POC ABG pO2 ABG pO2 ABG HCO3 ABG O2 Saturation ABG Base Excess ABG Oxyhemoglobin ABG Sodium ABG Chloride ABG Glucose Oxyhemoglobin Carboxyhemoglobin Sodium Potassium Chloride 94.4 L Carbon Dioxide 34 H BUN Creatinine 0.3 L Glucose 149 H POC Glucose 132 H 265 H Hemoglobin A1c Magnesium Ferritin AST ALT Alkaline Phosphatase Lactate Dehydrogenase C-Reactive Protein Total Protein Albumin Arterial Blood Glucose Coronavirus (PCR) 07/13/21 07/13/21 07/14/21 17:58 21:41 07:34 WBC MCV MCH MCHC RDW Lymph % (Auto) [place] % (Auto) Eos % (Auto) Lymph # (Auto) [place] # (Auto) Eos # (Auto) Baso # (Auto) Seg Neutrophils % Seg Neuts % (Manual) Lymphocytes % (Manual) Seg Neutrophils # Seg Neutrophils # Man Lymphocytes # (Manual) D-Dimer ABG pH POC ABG pCO2 POC ABG pO2 ABG pO2 ABG HCO3 ABG O2 Saturation ABG Base Excess ABG Oxyhemoglobin ABG Sodium ABG Chloride ABG Glucose Oxyhemoglobin Carboxyhemoglobin Sodium Potassium Chloride Carbon Dioxide BUN Creatinine Glucose POC Glucose 217 H 223 H 116 H Hemoglobin A1c Magnesium Ferritin AST ALT Alkaline Phosphatase Lactate Dehydrogenase C-Reactive Protein Total Protein Albumin Arterial Blood Glucose Coronavirus (PCR) 07/14/21 07/14/21 07/14/21 10:50 17:33 20:51 WBC MCV MCH MCHC RDW Lymph % (Auto) [place] % (Auto) Eos % (Auto) Lymph # (Auto) [place] # (Auto) Eos # (Auto) Baso # (Auto) Seg Neutrophils % Seg Neuts % (Manual) Lymphocytes % (Manual) Seg Neutrophils # Seg Neutrophils # Man Lymphocytes # (Manual) D-Dimer ABG pH POC ABG pCO2 POC ABG pO2 ABG pO2 ABG HCO3 ABG O2 Saturation ABG Base Excess ABG Oxyhemoglobin ABG Sodium ABG Chloride ABG Glucose Oxyhemoglobin Carboxyhemoglobin Sodium Potassium Chloride Carbon Dioxide BUN Creatinine Glucose POC Glucose 191 H 173 H 132 H Hemoglobin A1c Magnesium Ferritin AST ALT Alkaline Phosphatase Lactate Dehydrogenase C-Reactive Protein Total Protein Albumin Arterial Blood Glucose Coronavirus (PCR) 07/15/21 07/15/21 07/15/21 04:00 07:59 12:31 WBC MCV MCH MCHC RDW Lymph % (Auto) [place] % (Auto) Eos % (Auto) Lymph # (Auto) [place] # (Auto) Eos # (Auto) Baso # (Auto) Seg Neutrophils % Seg Neuts % (Manual) Lymphocytes % (Manual) Seg Neutrophils # Seg Neutrophils # Man Lymphocytes # (Manual) D-Dimer ABG pH POC ABG pCO2 POC ABG pO2 ABG pO2 ABG HCO3 ABG O2 Saturation ABG Base Excess ABG Oxyhemoglobin ABG Sodium ABG Chloride ABG Glucose Oxyhemoglobin Carboxyhemoglobin Sodium Potassium Chloride 96.0 L Carbon Dioxide 32 H BUN Creatinine 0.3 L Glucose 208 H POC Glucose 117 H 195 H Hemoglobin A1c Magnesium Ferritin AST ALT Alkaline Phosphatase Lactate Dehydrogenase C-Reactive Protein Total Protein Albumin Arterial Blood Glucose Coronavirus (PCR) 07/15/21 07/15/21 07/16/21 18:00 20:57 04:40 WBC MCV MCH MCHC RDW 17.1 H Lymph % (Auto) [place] % (Auto) Eos % (Auto) Lymph # (Auto) [place] # (Auto) Eos # (Auto) Baso # (Auto) Seg Neutrophils % Seg Neuts % (Manual) Lymphocytes % (Manual) Seg Neutrophils # Seg Neutrophils # Man Lymphocytes # (Manual) D-Dimer ABG pH POC ABG pCO2 POC ABG pO2 ABG pO2 ABG HCO3 ABG O2 Saturation ABG Base Excess ABG Oxyhemoglobin ABG Sodium ABG Chloride ABG Glucose Oxyhemoglobin Carboxyhemoglobin Sodium Potassium Chloride Carbon Dioxide BUN Creatinine Glucose POC Glucose 217 H 111 H Hemoglobin A1c Magnesium Ferritin AST ALT Alkaline Phosphatase Lactate Dehydrogenase C-Reactive Protein Total Protein Albumin Arterial Blood Glucose Coronavirus (PCR) 07/16/21 07/16/21 07/16/21 04:40 07:08 11:11 WBC MCV MCH MCHC RDW Lymph % (Auto) [place] % (Auto) Eos % (Auto) Lymph # (Auto) [place] # (Auto) Eos # (Auto) Baso # (Auto) Seg Neutrophils % Seg Neuts % (Manual) Lymphocytes % (Manual) Seg Neutrophils # Seg Neutrophils # Man Lymphocytes # (Manual) D-Dimer ABG pH POC ABG pCO2 POC ABG pO2 ABG pO2 ABG HCO3 ABG O2 Saturation ABG Base Excess ABG Oxyhemoglobin ABG Sodium ABG Chloride ABG Glucose Oxyhemoglobin Carboxyhemoglobin Sodium Potassium 3.4 L Chloride 94.6 L Carbon Dioxide 36 H BUN Creatinine < 0.2 L Glucose 101 H POC Glucose 118 H 184 H Hemoglobin A1c Magnesium Ferritin AST ALT Alkaline Phosphatase Lactate Dehydrogenase C-Reactive Protein Total Protein Albumin Arterial Blood Glucose Coronavirus (PCR) 07/16/21 07/16/21 07/17/21 17:29 22:01 08:10 WBC MCV MCH MCHC RDW Lymph % (Auto) [place] % (Auto) Eos % (Auto) Lymph # (Auto) [place] # (Auto) Eos # (Auto) Baso # (Auto) Seg Neutrophils % Seg Neuts % (Manual) Lymphocytes % (Manual) Seg Neutrophils # Seg Neutrophils # Man Lymphocytes # (Manual) D-Dimer ABG pH POC ABG pCO2 POC ABG pO2 ABG pO2 ABG HCO3 ABG O2 Saturation ABG Base Excess ABG Oxyhemoglobin ABG Sodium ABG Chloride ABG Glucose Oxyhemoglobin Carboxyhemoglobin Sodium Potassium Chloride Carbon Dioxide BUN Creatinine Glucose POC Glucose 200 H 147 H 118 H Hemoglobin A1c Magnesium Ferritin AST ALT Alkaline Phosphatase Lactate Dehydrogenase C-Reactive Protein Total Protein Albumin Arterial Blood Glucose Coronavirus (PCR) 07/17/21 07/17/21 07/17/21 11:38 16:24 21:13 WBC MCV MCH MCHC RDW Lymph % (Auto) [place] % (Auto) Eos % (Auto) Lymph # (Auto) [place] # (Auto) Eos # (Auto) Baso # (Auto) Seg Neutrophils % Seg Neuts % (Manual) Lymphocytes % (Manual) Seg Neutrophils # Seg Neutrophils # Man Lymphocytes # (Manual) D-Dimer ABG pH POC ABG pCO2 POC ABG pO2 ABG pO2 ABG HCO3 ABG O2 Saturation ABG Base Excess ABG Oxyhemoglobin ABG Sodium ABG Chloride ABG Glucose Oxyhemoglobin Carboxyhemoglobin Sodium Potassium Chloride Carbon Dioxide BUN Creatinine Glucose POC Glucose 151 H 268 H 115 H Hemoglobin A1c Magnesium Ferritin AST ALT Alkaline Phosphatase Lactate Dehydrogenase C-Reactive Protein Total Protein Albumin Arterial Blood Glucose Coronavirus (PCR) 07/18/21 07/18/21 07/18/21 07:58 12:29 20:24 WBC MCV MCH MCHC RDW Lymph % (Auto) [place] % (Auto) Eos % (Auto) Lymph # (Auto) [place] # (Auto) Eos # (Auto) Baso # (Auto) Seg Neutrophils % Seg Neuts % (Manual) Lymphocytes % (Manual) Seg Neutrophils # Seg Neutrophils # Man Lymphocytes # (Manual) D-Dimer ABG pH POC ABG pCO2 POC ABG pO2 ABG pO2 ABG HCO3 ABG O2 Saturation ABG Base Excess ABG Oxyhemoglobin ABG Sodium ABG Chloride ABG Glucose Oxyhemoglobin Carboxyhemoglobin Sodium Potassium Chloride Carbon Dioxide BUN Creatinine Glucose POC Glucose 135 H 139 H 130 H Hemoglobin A1c Magnesium Ferritin AST ALT Alkaline Phosphatase Lactate Dehydrogenase C-Reactive Protein Total Protein Albumin Arterial Blood Glucose Coronavirus (PCR) 07/19/21 07/19/21 07/19/21 06:55 06:55 07:54 WBC 14.5 H MCV MCH MCHC RDW 17.3 H Lymph % (Auto) 9.6 L [place] % (Auto) Eos % (Auto) Lymph # (Auto) [place] # (Auto) Eos # (Auto) 0.6 H Baso # (Auto) Seg Neutrophils % 80.3 H Seg Neuts % (Manual) Lymphocytes % (Manual) Seg Neutrophils # 11.7 H Seg Neutrophils # Man Lymphocytes # (Manual) D-Dimer ABG pH POC ABG pCO2 67.9 H POC ABG pO2 131.0 H ABG pO2 ABG HCO3 ABG O2 Saturation ABG Base Excess ABG Oxyhemoglobin ABG Sodium ABG Chloride 97.0 L ABG Glucose 133 H Oxyhemoglobin Carboxyhemoglobin Sodium Potassium Chloride 95.3 L Carbon Dioxide 35 H BUN Creatinine < 0.2 L Glucose 138 H POC Glucose Hemoglobin A1c Magnesium Ferritin AST ALT Alkaline Phosphatase Lactate Dehydrogenase C-Reactive Protein Total Protein Albumin Arterial Blood Glucose 133 H Coronavirus (PCR) 07/19/21 07/19/21 07/19/21 08:10 11:43 17:04 WBC MCV MCH MCHC RDW Lymph % (Auto) [place] % (Auto) Eos % (Auto) Lymph # (Auto) [place] # (Auto) Eos # (Auto) Baso # (Auto) Seg Neutrophils % Seg Neuts % (Manual) Lymphocytes % (Manual) Seg Neutrophils # Seg Neutrophils # Man Lymphocytes # (Manual) D-Dimer ABG pH POC ABG pCO2 POC ABG pO2 ABG pO2 ABG HCO3 ABG O2 Saturation ABG Base Excess ABG Oxyhemoglobin ABG Sodium ABG Chloride ABG Glucose Oxyhemoglobin Carboxyhemoglobin Sodium Potassium Chloride Carbon Dioxide BUN Creatinine Glucose POC Glucose 129 H 126 H 108 H Hemoglobin A1c Magnesium Ferritin AST ALT Alkaline Phosphatase Lactate Dehydrogenase C-Reactive Protein Total Protein Albumin Arterial Blood Glucose Coronavirus (PCR) 07/19/21 07/20/21 07/20/21 21:10 04:00 04:00 WBC MCV MCH MCHC RDW 17.0 H Lymph % (Auto) [place] % (Auto) 8.9 H Eos % (Auto) 6.3 H Lymph # (Auto) [place] # (Auto) 0.9 H Eos # (Auto) 0.6 H Baso # (Auto) Seg Neutrophils % 70.2 H Seg Neuts % (Manual) Lymphocytes % (Manual) Seg Neutrophils # Seg Neutrophils # Man Lymphocytes # (Manual) D-Dimer ABG pH POC ABG pCO2 POC ABG pO2 ABG pO2 ABG HCO3 ABG O2 Saturation ABG Base Excess ABG Oxyhemoglobin ABG Sodium ABG Chloride ABG Glucose Oxyhemoglobin Carboxyhemoglobin Sodium Potassium Chloride 96.7 L Carbon Dioxide 36 H BUN Creatinine 0.2 L Glucose 102 H POC Glucose 109 H Hemoglobin A1c Magnesium Ferritin AST ALT Alkaline Phosphatase Lactate Dehydrogenase C-Reactive Protein Total Protein Albumin 3.2 L Arterial Blood Glucose Coronavirus (PCR) 07/20/21 07/20/21 07/20/21 11:15 15:34 17:01 WBC MCV MCH MCHC RDW Lymph % (Auto) [place] % (Auto) Eos % (Auto) Lymph # (Auto) [place] # (Auto) Eos # (Auto) Baso # (Auto) Seg Neutrophils % Seg Neuts % (Manual) Lymphocytes % (Manual) Seg Neutrophils # Seg Neutrophils # Man Lymphocytes # (Manual) D-Dimer ABG pH POC ABG pCO2 POC ABG pO2 ABG pO2 ABG HCO3 ABG O2 Saturation ABG Base Excess ABG Oxyhemoglobin ABG Sodium ABG Chloride ABG Glucose Oxyhemoglobin Carboxyhemoglobin Sodium Potassium Chloride Carbon Dioxide BUN Creatinine Glucose POC Glucose 109 H 152 H 125 H Hemoglobin A1c Magnesium Ferritin AST ALT Alkaline Phosphatase Lactate Dehydrogenase C-Reactive Protein Total Protein Albumin Arterial Blood Glucose Coronavirus (PCR) 07/20/21 07/21/21 07/21/21 21:00 04:48 04:48 WBC 12.8 H MCV MCH MCHC RDW 16.8 H Lymph % (Auto) 9.3 L [place] % (Auto) Eos % (Auto) Lymph # (Auto) [place] # (Auto) 0.9 H Eos # (Auto) Baso # (Auto) Seg Neutrophils % 81.1 H Seg Neuts % (Manual) Lymphocytes % (Manual) Seg Neutrophils # 10.4 H Seg Neutrophils # Man Lymphocytes # (Manual) D-Dimer ABG pH POC ABG pCO2 POC ABG pO2 ABG pO2 ABG HCO3 ABG O2 Saturation ABG Base Excess ABG Oxyhemoglobin ABG Sodium ABG Chloride ABG Glucose Oxyhemoglobin Carboxyhemoglobin Sodium Potassium Chloride 95.4 L Carbon Dioxide 33 H BUN 6 L Creatinine < 0.2 L Glucose 155 H POC Glucose 211 H Hemoglobin A1c Magnesium 1.60 L Ferritin AST ALT Alkaline Phosphatase Lactate Dehydrogenase C-Reactive Protein Total Protein Albumin Arterial Blood Glucose Coronavirus (PCR) 07/21/21 07/21/21 07/21/21 07:52 11:05 17:01 WBC MCV MCH MCHC RDW Lymph % (Auto) [place] % (Auto) Eos % (Auto) Lymph # (Auto) [place] # (Auto) Eos # (Auto) Baso # (Auto) Seg Neutrophils % Seg Neuts % (Manual) Lymphocytes % (Manual) Seg Neutrophils # Seg Neutrophils # Man Lymphocytes # (Manual) D-Dimer ABG pH POC ABG pCO2 POC ABG pO2 ABG pO2 ABG HCO3 ABG O2 Saturation ABG Base Excess ABG Oxyhemoglobin ABG Sodium ABG Chloride ABG Glucose Oxyhemoglobin Carboxyhemoglobin Sodium Potassium Chloride Carbon Dioxide BUN Creatinine Glucose POC Glucose 116 H 207 H 133 H Hemoglobin A1c Magnesium Ferritin AST ALT Alkaline Phosphatase Lactate Dehydrogenase C-Reactive Protein Total Protein Albumin Arterial Blood Glucose Coronavirus (PCR) 07/21/21 07/22/21 07/22/21 21:17 07:55 07:55 WBC MCV MCH MCHC RDW 16.5 H Lymph % (Auto) [place] % (Auto) 8.6 H Eos % (Auto) Lymph # (Auto) [place] # (Auto) Eos # (Auto) Baso # (Auto) Seg Neutrophils % 72.3 H Seg Neuts % (Manual) Lymphocytes % (Manual) Seg Neutrophils # Seg Neutrophils # Man Lymphocytes # (Manual) D-Dimer ABG pH POC ABG pCO2 POC ABG pO2 ABG pO2 ABG HCO3 ABG O2 Saturation ABG Base Excess ABG Oxyhemoglobin ABG Sodium ABG Chloride ABG Glucose Oxyhemoglobin Carboxyhemoglobin Sodium Potassium Chloride 94.6 L Carbon Dioxide 42 H* D BUN 5 L Creatinine < 0.2 L Glucose POC Glucose 152 H Hemoglobin A1c Magnesium Ferritin AST ALT Alkaline Phosphatase Lactate Dehydrogenase C-Reactive Protein Total Protein Albumin Arterial Blood Glucose Coronavirus (PCR) 07/22/21 07/22/21 07/22/21 11:25 12:05 15:40 WBC MCV MCH MCHC RDW Lymph % (Auto) [place] % (Auto) Eos % (Auto) Lymph # (Auto) [place] # (Auto) Eos # (Auto) Baso # (Auto) Seg Neutrophils % Seg Neuts % (Manual) Lymphocytes % (Manual) Seg Neutrophils # Seg Neutrophils # Man Lymphocytes # (Manual) D-Dimer ABG pH 7.338 L POC ABG pCO2 POC ABG pO2 ABG pO2 66.1 L ABG HCO3 45.0 H ABG O2 Saturation 94.2 L ABG Base Excess 15.2 H ABG Oxyhemoglobin ABG Sodium ABG Chloride ABG Glucose Oxyhemoglobin 91.9 L Carboxyhemoglobin Sodium Potassium Chloride Carbon Dioxide BUN Creatinine Glucose POC Glucose 146 H 219 H Hemoglobin A1c Magnesium Ferritin AST ALT Alkaline Phosphatase Lactate Dehydrogenase C-Reactive Protein Total Protein Albumin Arterial Blood Glucose Coronavirus (PCR) 07/22/21 07/23/21 07/23/21 21:26 04:35 04:35 WBC MCV 98 H MCH MCHC RDW 16.2 H Lymph % (Auto) 7.9 L [place] % (Auto) Eos % (Auto) Lymph # (Auto) 0.9 L [place] # (Auto) Eos # (Auto) Baso # (Auto) Seg Neutrophils % 85.3 H Seg Neuts % (Manual) Lymphocytes % (Manual) Seg Neutrophils # 9.2 H Seg Neutrophils # Man Lymphocytes # (Manual) D-Dimer ABG pH POC ABG pCO2 POC ABG pO2 ABG pO2 ABG HCO3 ABG O2 Saturation ABG Base Excess ABG Oxyhemoglobin ABG Sodium ABG Chloride ABG Glucose Oxyhemoglobin Carboxyhemoglobin Sodium Potassium Chloride 93.9 L Carbon Dioxide 44 H* BUN Creatinine < 0.2 L Glucose 149 H POC Glucose 131 H Hemoglobin A1c Magnesium Ferritin AST ALT Alkaline Phosphatase Lactate Dehydrogenase C-Reactive Protein Total Protein Albumin Arterial Blood Glucose Coronavirus (PCR) 07/23/21 07/23/21 07/23/21 07:20 11:34 16:11 WBC MCV MCH MCHC RDW Lymph % (Auto) [place] % (Auto) Eos % (Auto) Lymph # (Auto) [place] # (Auto) Eos # (Auto) Baso # (Auto) Seg Neutrophils % Seg Neuts % (Manual) Lymphocytes % (Manual) Seg Neutrophils # Seg Neutrophils # Man Lymphocytes # (Manual) D-Dimer ABG pH POC ABG pCO2 POC ABG pO2 ABG pO2 ABG HCO3 ABG O2 Saturation ABG Base Excess ABG Oxyhemoglobin ABG Sodium ABG Chloride ABG Glucose Oxyhemoglobin Carboxyhemoglobin Sodium Potassium Chloride Carbon Dioxide BUN Creatinine Glucose POC Glucose 116 H 172 H 110 H Hemoglobin A1c Magnesium Ferritin AST ALT Alkaline Phosphatase Lactate Dehydrogenase C-Reactive Protein Total Protein Albumin Arterial Blood Glucose Coronavirus (PCR) 07/23/21 07/23/21 07/24/21 18:11 21:33 04:10 WBC MCV MCH MCHC RDW Lymph % (Auto) [place] % (Auto) Eos % (Auto) Lymph # (Auto) [place] # (Auto) Eos # (Auto) Baso # (Auto) Seg Neutrophils % Seg Neuts % (Manual) Lymphocytes % (Manual) Seg Neutrophils # Seg Neutrophils # Man Lymphocytes # (Manual) D-Dimer ABG pH POC ABG pCO2 78.3 H POC ABG pO2 80.7 L ABG pO2 ABG HCO3 ABG O2 Saturation ABG Base Excess ABG Oxyhemoglobin ABG Sodium 134.9 L ABG Chloride 89.0 L ABG Glucose 200 H Oxyhemoglobin Carboxyhemoglobin Sodium Potassium 3.5 L D Chloride 92.4 L Carbon Dioxide 42 H* BUN Creatinine < 0.2 L Glucose 123 H POC Glucose 108 H Hemoglobin A1c Magnesium Ferritin AST ALT Alkaline Phosphatase Lactate Dehydrogenase C-Reactive Protein Total Protein Albumin Arterial Blood Glucose 200 H Coronavirus (PCR) 07/24/21 07/24/21 07/24/21 11:01 16:56 22:06 WBC MCV MCH MCHC RDW Lymph % (Auto) [place] % (Auto) Eos % (Auto) Lymph # (Auto) [place] # (Auto) Eos # (Auto) Baso # (Auto) Seg Neutrophils % Seg Neuts % (Manual) Lymphocytes % (Manual) Seg Neutrophils # Seg Neutrophils # Man Lymphocytes # (Manual) D-Dimer ABG pH POC ABG pCO2 POC ABG pO2 ABG pO2 ABG HCO3 ABG O2 Saturation ABG Base Excess ABG Oxyhemoglobin ABG Sodium ABG Chloride ABG Glucose Oxyhemoglobin Carboxyhemoglobin Sodium Potassium Chloride Carbon Dioxide BUN Creatinine Glucose POC Glucose 171 H 111 H 136 H Hemoglobin A1c Magnesium Ferritin AST ALT Alkaline Phosphatase Lactate Dehydrogenase C-Reactive Protein Total Protein Albumin Arterial Blood Glucose Coronavirus (PCR) 07/25/21 07/25/21 07/25/21 07:40 10:59 11:58 WBC MCV MCH MCHC RDW Lymph % (Auto) [place] % (Auto) Eos % (Auto) Lymph # (Auto) [place] # (Auto) Eos # (Auto) Baso # (Auto) Seg Neutrophils % Seg Neuts % (Manual) Lymphocytes % (Manual) Seg Neutrophils # Seg Neutrophils # Man Lymphocytes # (Manual) D-Dimer ABG pH POC ABG pCO2 POC ABG pO2 ABG pO2 ABG HCO3 ABG O2 Saturation ABG Base Excess ABG Oxyhemoglobin ABG Sodium ABG Chloride ABG Glucose Oxyhemoglobin Carboxyhemoglobin Sodium Potassium Chloride 88.6 L Carbon Dioxide 43 H* BUN Creatinine 0.2 L Glucose 180 H POC Glucose 120 H 153 H Hemoglobin A1c Magnesium Ferritin AST ALT Alkaline Phosphatase Lactate Dehydrogenase C-Reactive Protein Total Protein Albumin Arterial Blood Glucose Coronavirus (PCR) 07/25/21 07/25/21 16:03 20:18 WBC MCV MCH MCHC RDW Lymph % (Auto) [place] % (Auto) Eos % (Auto) Lymph # (Auto) [place] # (Auto) Eos # (Auto) Baso # (Auto) Seg Neutrophils % Seg Neuts % (Manual) Lymphocytes % (Manual) Seg Neutrophils # Seg Neutrophils # Man Lymphocytes # (Manual) D-Dimer ABG pH POC ABG pCO2 POC ABG pO2 ABG pO2 ABG HCO3 ABG O2 Saturation ABG Base Excess ABG Oxyhemoglobin ABG Sodium ABG Chloride ABG Glucose Oxyhemoglobin Carboxyhemoglobin Sodium Potassium Chloride Carbon Dioxide BUN Creatinine Glucose POC Glucose 143 H 133 H Hemoglobin A1c Magnesium Ferritin AST ALT Alkaline Phosphatase Lactate Dehydrogenase C-Reactive Protein Total Protein Albumin Arterial Blood Glucose Coronavirus (PCR)
[2021-07-26 10:37] LABS: Alanine Aminotransferase 25 units/L (7-56); Albumin 3.2 g/dL (3.9-5); Blood Urea Nitrogen 10 mg/dL (7-17); Calcium 9.5 mg/dL (8.4-10.2); Hemolysis Index 4
[2021-07-26 10:59] LABS: BUN/Creatinine Ratio 50
[2021-07-26] MEDS: ZINC SULFATE 220 MG CAP PO SCH ×2 (11:02→21:53)
[2021-07-26] MEDS: CHOLECALCIFEROL (VIT D3) 1000 UNIT (25 mcg) TAB PO SCH (11:09)
[2021-07-26] MEDS: IBUPROFEN 600 MG TAB PO PRN (11:10)
[2021-07-26] MEDS: INSULIN GLARGINE 100 UNITS/ML SUB-Q SCH (11:12)
[2021-07-26] MEDS: INSULIN LISPRO 100 UNIT/ML SUB-Q SCH ×3 (13:41→21:47)
[2021-07-26] MEDS: ALPRAZolam 1 MG TAB PO SCH ×2 (13:42→21:53)
[2021-07-26] MEDS: ACETAMINOPHEN 325 MG TAB PO PRN (21:52)
[2021-07-26] MEDS: ENOXAPARIN 40 MG/0.4 ML INJ SUB-Q SCH (21:53)
[2021-07-27] MEDS: INSULIN LISPRO 100 UNIT/ML SUB-Q SCH ×6 (08:15→22:31)
--- NOTE | 2021-07-27 08:18 | Progress Note ---
Assessment and Plan Assessment and plan: #Acute hypoxic/hypercapneic respiratory failure #Severe ARDS -Currently on high flow nasal cannula, improving currently on 75% FIO2 -BiPAP at night as tolerated -Low threshold for intubation as patient is persistently tachypneic and tachycardic -s/p prednisone taper -Pulmonology following, assistance appreciated -encouraged prone positioning; patient has been poorly tolerating it overnight #Metabolic alkalosis -stable -Patient received multiple doses of Lasix over course of hospital stay but may be 2/2 to compensation for hypercapneia #Heart failure with preserved ejection fraction -TTE: LVEF 55-60% with diastolic dysfunction -will continue to monitor for signs of fluid overload #COVID-19 infection -Continue Covid vitamins #Type 2 diabetes -continue Lantus 15 units daily and sliding scale insulin #Dysuria #Possible UTI -s/p levaquin #Anxiety -Stable -decreased xanax dose at patients request #DVT prophylaxis -Lovenox 40 daily #Deconditioning -Will benefit from SNF after prolonged hospital stay Resolved issues #Sepsis secondary to COVID-19 #Iatrogenic diarrhea #Hypomagnesemia #Hyponatremia #Protein calorie malnutrition Disposition Plan: Continue medical management Total Time Spent with Patient (Minutes): 20 minutes History Interval history: No acute events overnight. On HFNC 40/75%. Having R shoulder and throat pains. No other complaints at this time. Hospitalist Physical - Physical exam Narrative exam: GENERAL: Well-developed well-nourished. Lying in bed in no acute distress. HEENT: High flow nasal cannula at 40L/75% CHEST/LUNGS: Coarse breath sounds bilaterally. HEART/CARDIOVASCULAR: Tachycardic. No murmur, rubs or gallops appreciated. ABDOMEN: +BS. NT/ND. PSYCH: Cooperative. - Constitutional Vitals: Temp Pulse Resp BP Pulse Ox 98.3 F 99 H 25 H 117/58 98 07/27/21 07:19 07/27/21 06:00 07/27/21 06:00 07/27/21 06:00 07/27/21 08:02 General appearance: Present: no acute distress, well-nourished, obese, other (Looks tired) Results - Labs CBC & Chem 7: 07/23/21 04:35 07/26/21 09:56 Labs: Laboratory Last Values WBC 10.8 K/mm3 (4.5-11.0) 07/23/21 04:35 RBC 3.84 M/mm3 (3.65-5.03) 07/23/21 04:35 Hgb 12.1 gm/dl (10.1-14.3) 07/23/21 04:35 Hct 37.6 % (30.3-42.9) 07/23/21 04:35 MCV 98 fl (79-97) H 07/23/21 04:35 MCH 32 pg (28-32) 07/23/21 04:35 MCHC 32 % (30-34) 07/23/21 04:35 RDW 16.2 % (13.2-15.2) H 07/23/21 04:35 Plt Count 367 K/mm3 (140-440) 07/23/21 04:35 Lymph % (Auto) 7.9 % (13.4-35.0) L 07/23/21 04:35 [place] % (Auto) 5.6 % (0.0-7.3) 07/23/21 04:35 Eos % (Auto) 0.8 % (0.0-4.3) 07/23/21 04:35 Baso % (Auto) 0.4 % (0.0-1.8) 07/23/21 04:35 Lymph # (Auto) 0.9 K/mm3 (1.2-5.4) L 07/23/21 04:35 [place] # (Auto) 0.6 K/mm3 (0.0-0.8) 07/23/21 04:35 Eos # (Auto) 0.1 K/mm3 (0.0-0.4) 07/23/21 04:35 Baso # (Auto) 0.0 K/mm3 (0.0-0.1) 07/23/21 04:35 Add Manual Diff Complete 07/09/21 04:45 Total Counted 100 07/09/21 04:45 Seg Neutrophils % 85.3 % (40.0-70.0) H 07/23/21 04:35 Seg Neuts % (Manual) 82.0 % (40.0-70.0) H 07/09/21 04:45 Band Neutrophils % 1.0 % 05/12/21 04:05 Lymphocytes % (Manual) 13.0 % (13.4-35.0) L 07/09/21 04:45 Monocytes % (Manual) 3.0 % (0.0-7.3) 07/09/21 04:45 Eosinophils % (Manual) 2.0 % (0.0-4.3) 07/09/21 04:45 Nucleated RBC % Not Reportable 07/09/21 04:45 Seg Neutrophils # 9.2 K/mm3 (1.8-7.7) H 07/23/21 04:35 Seg Neutrophils # Man 7.8 K/mm3 (1.8-7.7) H 07/09/21 04:45 Band Neutrophils # 0.0 K/mm3 07/09/21 04:45 Lymphocytes # (Manual) 1.2 K/mm3 (1.2-5.4) 07/09/21 04:45 Abs React Lymphs (Man) 0.0 K/mm3 07/09/21 04:45 Monocytes # (Manual) 0.3 K/mm3 (0.0-0.8) 07/09/21 04:45 Eosinophils # (Manual) 0.2 K/mm3 (0.0-0.4) 07/09/21 04:45 Basophils # (Manual) 0.0 K/mm3 (0.0-0.1) 07/09/21 04:45 Metamyelocytes # 0.0 K/mm3 07/09/21 04:45 Myelocytes # 0.0 K/mm3 07/09/21 04:45 Promyelocytes # 0.0 K/mm3 07/09/21 04:45 Blast Cells # 0.0 K/mm3 07/09/21 04:45 WBC Morphology Not Reportable 07/09/21 04:45 Hypersegmented Neuts Not Reportable 07/09/21 04:45 Hyposegmented Neuts Not Reportable 07/09/21 04:45 Hypogranular Neuts Not Reportable 07/09/21 04:45 Smudge Cells Not Reportable 07/09/21 04:45 Toxic Granulation Not Reportable 07/09/21 04:45 Toxic Vacuolation Not Reportable 07/09/21 04:45 Dohle Bodies Not Reportable 07/09/21 04:45 Pelger-Huet Anomaly Not Reportable 07/09/21 04:45 Janelle Rods Not Reportable 07/09/21 04:45 Platelet Estimate Consistent w auto 07/09/21 04:45 Clumped Platelets Not Reportable 07/09/21 04:45 Plt Clumps, EDTA Not Reportable 07/09/21 04:45 Large Platelets Not Reportable 07/09/21 04:45 Giant Platelets Rare 07/09/21 04:45 Platelet Satelliting Not Reportable 07/09/21 04:45 Plt Morphology Comment Not Reportable 07/09/21 04:45 RBC Morphology Not Reportable 07/09/21 04:45 Dimorphic RBCs Not Reportable 07/09/21 04:45 Polychromasia Not Reportable 07/09/21 04:45 Hypochromasia Few 07/09/21 04:45 Poikilocytosis Not Reportable 07/09/21 04:45 Anisocytosis Not Reportable 07/09/21 04:45 Microcytosis Not Reportable 07/09/21 04:45 Macrocytosis Not Reportable 07/09/21 04:45 Spherocytes Not Reportable 07/09/21 04:45 Pappenheimer Bodies Not Reportable 07/09/21 04:45 Sickle Cells Not Reportable 07/09/21 04:45 Target Cells Not Reportable 07/09/21 04:45 Tear Drop Cells Not Reportable 07/09/21 04:45 Ovalocytes Not Reportable 07/09/21 04:45 Stomatocytes 1+ 07/09/21 04:45 Helmet Cells Not Reportable 07/09/21 04:45 [place] Bodies Not Reportable 07/09/21 04:45 [place] Rings Not Reportable 07/09/21 04:45 [place] Cells Not Reportable 07/09/21 04:45 Bite Cells Not Reportable 07/09/21 04:45 Crenated Cell Not Reportable 07/09/21 04:45 Elliptocytes Not Reportable 07/09/21 04:45 Acanthocytes (Spur) Not Reportable 07/09/21 04:45 Rouleaux Not Reportable 07/09/21 04:45 Hemoglobin C Crystals Not Reportable 07/09/21 04:45 Schistocytes Not Reportable 07/09/21 04:45 Malaria parasites Not Reportable 07/09/21 04:45 Justin Bodies Not Reportable 07/09/21 04:45 Hem Pathologist Commnt No 07/09/21 04:45 D-Dimer 638.35 ng/mlDDU (0-234) H 07/09/21 04:45 ABG pH 7.417 (7.320-7.450) 07/23/21 18:11 POC ABG pCO2 78.3 mmHg (32.0-48.0) H 07/23/21 18:11 ABG pCO2 85.7 mm Hg 07/22/21 12:05 POC ABG pO2 80.7 mmHg (83-108) L 07/23/21 18:11 ABG pO2 66.1 mm Hg (80.0-90.0) L 07/22/21 12:05 POC ABG HCO3 49.3 07/23/21 18:11 ABG HCO3 45.0 mmol/L (20.0-26.0) H 07/22/21 12:05 ABG O2 Saturation 96.7 (0-100) 07/23/21 18:11 ABG O2 Content 16.8 (0.0-44) 07/22/21 12:05 POC ABG Base Excess 20.5 07/23/21 18:11 ABG Base Excess 15.2 mmol/L (-2.0-3.0) H 07/22/21 12:05 ABG Hemoglobin 12.6 (12.0-17.5) 07/23/21 18:11 ABG Oxyhemoglobin 95.7 (94-98) 07/23/21 18:11 ABG Carboxyhemoglobin 1.9 % (0.0-5.0) 07/22/21 12:05 ABG Methemoglobin 0.3 (0.0-1.5) 07/23/21 18:11 ABG Sodium 134.9 mmol/L (136.0-145.0) L 07/23/21 18:11 ABG Potassium 3.9 mmol/L (3.40-4.50) 07/23/21 18:11 ABG Chloride 89.0 mmol/L (98-107) L 07/23/21 18:11 ABG Glucose 200 mg/dL (65-95) H 07/23/21 18:11 Oxyhemoglobin 91.9 % (95.0-99.0) L 07/22/21 12:05 Carboxyhemoglobin 0.7 (0.5-1.5) 07/23/21 18:11 FiO2 100 % 07/22/21 12:05 FiO2 % 100.0 07/23/21 18:11 Sodium 141 mmol/L (137-145) 07/26/21 09:56 Potassium 4.4 mmol/L (3.6-5.0) 07/26/21 09:56 Chloride 91.3 mmol/L (98-107) L 07/26/21 09:56 Carbon Dioxide 45 mmol/L (22-30) H* 07/26/21 09:56 Anion Gap 9 mmol/L 07/26/21 09:56 BUN 10 mg/dL (7-17) 07/26/21 09:56 Creatinine < 0.2 mg/dL (0.6-1.2) L 07/26/21 09:56 Estimated GFR > 60 ml/min 07/26/21 09:56 BUN/Creatinine Ratio 50 % 07/26/21 09:56 Glucose 128 mg/dL (65-100) H 07/26/21 09:56 POC Glucose 119 mg/dL (70-105) H 07/27/21 07:10 Hemoglobin A1c 8.5 % (4-6) H 04/18/21 07:36 Calcium 9.5 mg/dL (8.4-10.2) 07/26/21 09:56 Phosphorus 3.70 mg/dL (2.5-4.5) 07/23/21 04:35 Magnesium 2.10 mg/dL (1.7-2.3) 07/23/21 04:35 Ferritin 155.9 ng/mL (10.0-200.0) 07/09/21 04:45 Total Bilirubin < 0.20 mg/dL (0.1-1.2) 07/26/21 09:56 AST 23 units/L (5-40) 07/26/21 09:56 ALT 25 units/L (7-56) 07/26/21 09:56 Alkaline Phosphatase 69 units/L (35-129) 07/26/21 09:56 Lactate Dehydrogenase 475 units/L (91-180) H 06/05/21 05:26 C-Reactive Protein 4.30 mg/dL (0.00-1.30) H 07/09/21 04:45 NT-Pro-B Natriuret Pep 59.45 pg/mL (0-450) 07/07/21 13:40 Total Protein 8.1 g/dL (6.3-8.2) 07/26/21 09:56 Albumin 3.2 g/dL (3.9-5) L 07/26/21 09:56 Albumin/Globulin Ratio 0.7 % 07/26/21 09:56 Triglycerides < 9 mg/dL (2-149) 05/03/21 04:30 Procalcitonin < 0.05 ng/mL (<0.15) 05/23/21 09:50 Arterial Blood Glucose 200 mg/dL (65-95) H 07/23/21 18:11 Arterial Blood Ionized Calcium 4.6 mg/dL (4.6-5.3) 07/23/21 18:11 Coronavirus (PCR) Negative (Negative) 07/25/21 Unknown Amos/IV: Voiding Method External Female Catheter Active Medications - Current Medications Current Medications: Generic Name Dose Route Start Last Admin Trade Name Freq PRN Reason Stop Dose Admin Acetaminophen 650 mg 07/02/21 17:48 07/26/21 21:52 Acetaminophen 325 Mg Tab PO 650 mg Q4H PRN Administration Pain, Mild (1-3) Albuterol 2.5 mg 04/16/21 13:39 04/21/21 20:39 Albuterol 2.5 Mg/3 Ml Nebu IH 2.5 mg Q4HRT PRN Administration Shortness Of Breath Alprazolam 1 mg 07/26/21 22:00 07/26/21 21:53 Alprazolam 1 Mg Tab PO 1 mg BID TUTU Administration Calcium Carbonate/Glycine 500 mg 07/24/21 10:43 Calcium Carbonate 500 Mg Tab Chew PO BID PRN reflux Cholecalciferol 1,000 unit 04/17/21 10:00 07/26/21 11:09 Cholecalciferol (Vit D3) 1000 Unit (25 Mcg) Tab PO 1,000 unit QDAY TUTU Administration Enoxaparin Sodium 40 mg 05/19/21 22:00 07/26/21 21:53 Enoxaparin 40 Mg/0.4 Ml Inj SUB-Q 40 mg QDAY@2200 [facility] Administration Protocol Ibuprofen 600 mg 07/11/21 11:00 07/26/21 11:10 Ibuprofen 600 Mg Tab PO 600 mg Q6H PRN Administration Ear Pain Insulin Glargine 5 units 07/25/21 10:00 07/26/21 11:12 Insulin Glargine 100 Units/Ml SUB-Q 5 units DAILY TUTU Administration Insulin Human Lispro 0 unit 05/18/21 12:00 07/26/21 21:47 Insulin Lispro 100 Unit/Ml SUB-Q Not Given ACHS [facility] Protocol Ondansetron HCl 4 mg 04/16/21 14:00 05/30/21 10:07 Ondansetron 4 Mg/2 Ml Inj IV 4 mg Q8H PRN Administration Nausea And Vomiting Polyethylene Glycol 17 gm 07/16/21 20:00 Polyethylene Glycol 3350 17 Gm Powder PO QDAY PRN Constipation Sodium Chloride 10 ml 04/16/21 13:39 07/24/21 10:59 Sodium Chloride 0.9% 10 Ml Flush Syringe IV 10 ml PRN PRN Administration LINE FLUSH Zinc Sulfate 220 mg 04/16/21 22:00 07/26/21 21:53 Zinc Sulfate 220 Mg Cap PO 220 mg BID TUTU Administration Nutrition/Malnutrition Assess - Dietary Evaluation Nutrition/Malnutrition Findings: Nutrition Notes Start: 04/23/21 07:41 Freq: Status: Active Protocol: Document 07/03/21 16:54 GB (Rec: 07/03/21 17:11 GB [email or web address]) Nutrition Notes Initial or Follow up Reassessment Current Diagnosis Respiratory Failure Other Pertinent Diagnosis oral thrush, COVID-19 pneu Current Diet consistent carbohydrate Labs/Tests 07/03: creatinine 0.3, K 3.2 Pertinent Medications Vit C, Vit D3, D5 (PRN), Prednisone, NaCl, Zn Sulfate Height 4 ft 11.84 in Weight 60.3 kg [place] Body Weight (kg) 45.09 BMI 26.1 Weight change and time frame 04/16/21: 74.843kg 05/17/21: 68.1kg 06/16/21: 60.3kg change of -14.54kg for -19.43% in 60 days. Per MD note: pt has been diuresed thorughout stay. Weight Status Overweight Subjective/Other Information MD notes 07/03: pt showing improvement, prednisone weaning down, possible weaning of O2. Last BM: 07/02 PO intake recorded at 50-100% Percent of energy/protein needs met: PO intake of meals meet 75% or greater of EEN Burn Absent Trauma Absent GI Symptoms None Food Allergy No Skin Integrity/Comment skin tear rt/lt buttocks Current % PO Good (75-100%) Minimum of two criteria No #3 Nutrition Diagnosis No nutrition diagnosis at this time Etiology respiratory failure As Evidenced by Signs and Symptoms recovering, good po, weight loss r/t diurese therapy #2 Nutrition Diagnosis Malnutrition Comments: Wt loss due to diurese for most of stay. PO intake is recorded at 75- 100% Etiology acute illness As Evidenced by Signs and Symptoms <50% EER in >5 days, >5% wt loss in 1 month Diagnosis Progress(for reassessment Resolved documentation) #1 Nutrition Diagnosis Inadequate oral intake Etiology ARF As Evidenced by Signs and Symptoms pt continues to meet 100%/93% of kcal/protein needs Diagnosis Progress(for reassessment Resolved documentation) Is patient on ventilator? No Is Patient Ambulatory and/or Out of Bed Yes REE-([place]-ambulatory/OOB) [ 1491.022 [id number]] Kcal/Kg value to use for calculation 25 Approximate Energy Requirements Using 1508 kcal/Kg Calculation Used for Recommendations Kcal/kg Additional Notes Pro needs 1-1.2g/kg @ 60k -72g/day Fluid needs 1ml/kcal or per MD Nutrition Intervention Change Diet Order: continue Nutrition Support: n/a Add Supplement/Snack (indicate name/kcal n/a /protein ) Goal #1 PO intake of meals to be 75% or greater daily for LOS Goal #2 Weight to stabilize +/-3% current weight for LOS Follow-Up By: 08/07/21 Additional Comments f/u: po intake, weight
[2021-07-27] MEDS: ACETAMINOPHEN 325 MG TAB PO PRN ×2 (10:36→22:19)
[2021-07-27] MEDS: CHOLECALCIFEROL (VIT D3) 1000 UNIT (25 mcg) TAB PO SCH (10:37)
[2021-07-27] MEDS: ZINC SULFATE 220 MG CAP PO SCH ×2 (10:37→22:20)
[2021-07-27] MEDS: INSULIN GLARGINE 100 UNITS/ML SUB-Q SCH (10:38)
[2021-07-27] MEDS: ALPRAZolam 1 MG TAB PO SCH ×2 (10:38→22:20)
--- NOTE | 2021-07-27 14:29 | Progress Note ---
Assessment and Plan Imp: 1. Covid-19 2. Viral pneumonia 3. Acute respiratory failure, hypoxia Rec: 1. S/p Remdesivir, Actemra 2. Off steroids 3. SubQ Lovenox 4. Proning 5. Wean HFNC to keep sats 88% or > 6. Guarded prognosis Subjective Date of service: 07/27/21 Principal diagnosis: Covid-19 Interval history: No events. On 40LPM and 75% FiO2 HFNC. + SOB. No other complaints. Active Medications Acetaminophen (Acetaminophen 325 Mg Tab) 650 mg PO Q4H PRN PRN Reason: Pain, Mild (1-3) Last Admin: 07/27/21 10:36 Dose: 650 mg Documented by: Albuterol (Albuterol 2.5 Mg/3 Ml Nebu) 2.5 mg IH Q4HRT PRN PRN Reason: Shortness Of Breath Last Admin: 04/21/21 20:39 Dose: 2.5 mg Documented by: Alprazolam (Alprazolam 1 Mg Tab) 1 mg PO BID [facility] Last Admin: 07/27/21 10:38 Dose: 1 mg Documented by: Calcium Carbonate/Glycine (Calcium Carbonate 500 Mg Tab Chew) 500 mg PO BID PRN PRN Reason: reflux Cholecalciferol (Cholecalciferol (Vit D3) 1000 Unit (25 Mcg) Tab) 1,000 unit PO QDAY [facility] Last Admin: 07/27/21 10:37 Dose: 1,000 unit Documented by: Enoxaparin Sodium (Enoxaparin 40 Mg/0.4 Ml Inj) 40 mg SUB-Q QDAY@2200 [facility]; Prot ocol Last Admin: 07/26/21 21:53 Dose: 40 mg Documented by: Ibuprofen (Ibuprofen 600 Mg Tab) 600 mg PO Q6H PRN PRN Reason: Ear Pain Last Admin: 07/26/21 11:10 Dose: 600 mg Documented by: Insulin Glargine (Insulin Glargine 100 Units/Ml) 5 units SUB-Q DAILY [facility] Last Admin: 07/27/21 10:38 Dose: 5 units Documented by: Insulin Human Lispro (Insulin Lispro 100 Unit/Ml) 0 unit SUB-Q [facility]; Protocol Last Admin: 07/27/21 18:00 Dose: Not Given Documented by: Ondansetron HCl (Ondansetron 4 Mg/2 Ml Inj) 4 mg IV Q8H PRN PRN Reason: Nausea And Vomiting Last Admin: 05/30/21 10:07 Dose: 4 mg Documented by: Polyethylene Glycol (Polyethylene Glycol 3350 17 Gm Powder) 17 gm PO QDAY PRN PRN Reason: Constipation Sodium Chloride (Sodium Chloride 0.9% 10 Ml Flush Syringe) 10 ml IV PRN PRN PRN Reason: LINE FLUSH Last Admin: 07/27/21 10:47 Dose: 10 ml Documented by: Zinc Sulfate (Zinc Sulfate 220 Mg Cap) 220 mg PO BID [facility] Last Admin: 07/27/21 10:37 Dose: 220 mg Documented by: Objective Vital Signs - 12hr 07/27/21 07/27/21 07/27/21 03:00 04:00 05:00 Temperature 98.2 F Pulse Rate 101 H 98 H 96 H Pulse Rate [ 96 H From Monitor] Respiratory 26 H 26 H 26 H Rate Blood Pressure 120/63 114/63 101/54 O2 Sat by Pulse 97 97 98 Oximetry 07/27/21 07/27/21 07/27/21 06:00 07:00 07:19 Temperature 98.3 F Pulse Rate 99 H 103 H Pulse Rate [ From Monitor] Respiratory 25 H 27 H Rate Blood Pressure 117/58 122/68 O2 Sat by Pulse 97 97 Oximetry 07/27/21 07/27/21 07/27/21 08:00 08:02 09:00 Temperature Pulse Rate 101 H 109 H Pulse Rate [ From Monitor] Respiratory 25 H 35 H Rate Blood Pressure 118/64 118/64 O2 Sat by Pulse 98 98 93 Oximetry 07/27/21 07/27/21 07/27/21 10:00 11:00 12:00 Temperature Pulse Rate 107 H 108 H 118 H Pulse Rate [ From Monitor] Respiratory 31 H 32 H 36 H Rate Blood Pressure 131/77 132/77 150/69 O2 Sat by Pulse 97 95 86 Oximetry 07/27/21 12:48 Temperature 97.5 F L Pulse Rate Pulse Rate [ From Monitor] Respiratory Rate Blood Pressure O2 Sat by Pulse Oximetry Constitutional: no acute distress, alert, other (on hiflo o2) Eyes: non-icteric ENT: oropharynx moist Neck: supple Effort: normal Ascultation: Bilateral: diminished breath sounds Cardiovascular: regular rate and rhythm Gastrointestinal: normoactive bowel sounds, soft, non-tender, non-distended Integumentary: normal Extremities: no cyanosis, no edema, pink and warm Neurologic: non-focal exam, pupils equal and round Psychiatric: mood appropriate, affect normal CBC and BMP: 07/23/21 04:35 07/26/21 09:56 ABG, PT/INR, D-dimer: ABG ABG pH 7.417 (7.320-7.450) 07/23/21 18:11 POC ABG pCO2 78.3 mmHg (32.0-48.0) H 07/23/21 18:11 ABG pCO2 85.7 mm Hg 07/22/21 12:05 POC ABG pO2 80.7 mmHg (83-108) L 07/23/21 18:11 ABG pO2 66.1 mm Hg (80.0-90.0) L 07/22/21 12:05 POC ABG HCO3 49.3 07/23/21 18:11 ABG O2 Saturation 96.7 (0-100) 07/23/21 18:11 PT/INR, D-dimer D-Dimer 638.35 ng/mlDDU (0-234) H 07/09/21 04:45 Abnormal lab findings: Abnormal Labs 04/16/21 04/16/21 04/16/21 11:42 11:42 11:42 WBC MCV MCH MCHC RDW 16.1 H Lymph % (Auto) 7.8 L [place] % (Auto) Eos % (Auto) Lymph # (Auto) 0.8 L [place] # (Auto) Eos # (Auto) Baso # (Auto) Seg Neutrophils % 87.7 H Seg Neuts % (Manual) Lymphocytes % (Manual) Seg Neutrophils # 8.5 H Seg Neutrophils # Man Lymphocytes # (Manual) D-Dimer 338.70 H ABG pH POC ABG pCO2 POC ABG pO2 ABG pO2 ABG HCO3 ABG O2 Saturation ABG Base Excess ABG Oxyhemoglobin ABG Sodium ABG Chloride ABG Glucose Oxyhemoglobin Carboxyhemoglobin Sodium Potassium Chloride Carbon Dioxide BUN Creatinine Glucose 194 H POC Glucose Hemoglobin A1c Magnesium Ferritin AST ALT Alkaline Phosphatase Lactate Dehydrogenase C-Reactive Protein Total Protein 8.4 H Albumin 3.8 L Arterial Blood Glucose Coronavirus (PCR) 04/16/21 04/16/21 04/17/21 11:42 11:42 03:50 WBC MCV MCH MCHC RDW 16.0 H Lymph % (Auto) 7.7 L [place] % (Auto) Eos % (Auto) Lymph # (Auto) 0.6 L [place] # (Auto) Eos # (Auto) Baso # (Auto) Seg Neutrophils % 89.8 H Seg Neuts % (Manual) Lymphocytes % (Manual) Seg Neutrophils # Seg Neutrophils # Man Lymphocytes # (Manual) D-Dimer ABG pH POC ABG pCO2 POC ABG pO2 ABG pO2 ABG HCO3 ABG O2 Saturation ABG Base Excess ABG Oxyhemoglobin ABG Sodium ABG Chloride ABG Glucose Oxyhemoglobin Carboxyhemoglobin Sodium Potassium Chloride Carbon Dioxide BUN Creatinine Glucose 195 H POC Glucose Hemoglobin A1c Magnesium Ferritin 254.3 H AST ALT Alkaline Phosphatase Lactate Dehydrogenase 359 H C-Reactive Protein 15.20 H Total Protein Albumin Arterial Blood Glucose Coronavirus (PCR) 04/17/21 04/17/21 04/17/21 03:50 08:26 08:26 WBC MCV MCH MCHC RDW Lymph % (Auto) [place] % (Auto) Eos % (Auto) Lymph # (Auto) [place] # (Auto) Eos # (Auto) Baso # (Auto) Seg Neutrophils % Seg Neuts % (Manual) Lymphocytes % (Manual) Seg Neutrophils # Seg Neutrophils # Man Lymphocytes # (Manual) D-Dimer 262.48 H ABG pH POC ABG pCO2 POC ABG pO2 ABG pO2 ABG HCO3 ABG O2 Saturation ABG Base Excess ABG Oxyhemoglobin ABG Sodium ABG Chloride ABG Glucose Oxyhemoglobin Carboxyhemoglobin Sodium Potassium Chloride Carbon Dioxide BUN 20 H Creatinine 0.5 L Glucose 249 H 225 H POC Glucose Hemoglobin A1c Magnesium Ferritin AST ALT Alkaline Phosphatase Lactate Dehydrogenase 338 H C-Reactive Protein 17.20 H Total Protein Albumin 3.2 L Arterial Blood Glucose Coronavirus (PCR) 04/17/21 04/17/21 04/17/21 08:26 15:04 Unknown WBC MCV MCH MCHC RDW Lymph % (Auto) [place] % (Auto) Eos % (Auto) Lymph # (Auto) [place] # (Auto) Eos # (Auto) Baso # (Auto) Seg Neutrophils % Seg Neuts % (Manual) Lymphocytes % (Manual) Seg Neutrophils # Seg Neutrophils # Man Lymphocytes # (Manual) D-Dimer ABG pH POC ABG pCO2 POC ABG pO2 ABG pO2 ABG HCO3 ABG O2 Saturation ABG Base Excess ABG Oxyhemoglobin ABG Sodium ABG Chloride ABG Glucose Oxyhemoglobin Carboxyhemoglobin Sodium Potassium Chloride Carbon Dioxide BUN 20 H Creatinine 0.5 L Glucose 246 H POC Glucose Hemoglobin A1c Magnesium Ferritin 392.0 H AST ALT Alkaline Phosphatase Lactate Dehydrogenase C-Reactive Protein Total Protein 8.3 H Albumin 3.1 L Arterial Blood Glucose Coronavirus (PCR) Positive A 04/18/21 04/18/21 04/18/21 05:06 05:06 07:36 WBC 11.6 H MCV MCH MCHC RDW 16.1 H Lymph % (Auto) [place] % (Auto) Eos % (Auto) Lymph # (Auto) [place] # (Auto) Eos # (Auto) Baso # (Auto) Seg Neutrophils % Seg Neuts % (Manual) Lymphocytes % (Manual) Seg Neutrophils # Seg Neutrophils # Man Lymphocytes # (Manual) D-Dimer ABG pH POC ABG pCO2 POC ABG pO2 ABG pO2 ABG HCO3 ABG O2 Saturation ABG Base Excess ABG Oxyhemoglobin ABG Sodium ABG Chloride ABG Glucose Oxyhemoglobin Carboxyhemoglobin Sodium Potassium 5.2 H Chloride Carbon Dioxide BUN 22 H Creatinine 0.5 L Glucose 315 H POC Glucose Hemoglobin A1c 8.5 H Magnesium Ferritin AST ALT Alkaline Phosphatase Lactate Dehydrogenase C-Reactive Protein Total Protein Albumin 3.3 L Arterial Blood Glucose Coronavirus (PCR) 04/18/21 04/18/21 04/18/21 11:59 16:43 23:24 WBC MCV MCH MCHC RDW Lymph % (Auto) [place] % (Auto) Eos % (Auto) Lymph # (Auto) [place] # (Auto) Eos # (Auto) Baso # (Auto) Seg Neutrophils % Seg Neuts % (Manual) Lymphocytes % (Manual) Seg Neutrophils # Seg Neutrophils # Man Lymphocytes # (Manual) D-Dimer ABG pH POC ABG pCO2 POC ABG pO2 ABG pO2 ABG HCO3 ABG O2 Saturation ABG Base Excess ABG Oxyhemoglobin ABG Sodium ABG Chloride ABG Glucose Oxyhemoglobin Carboxyhemoglobin Sodium Potassium Chloride Carbon Dioxide BUN Creatinine Glucose POC Glucose 284 H 273 H 290 H Hemoglobin A1c Magnesium Ferritin AST ALT Alkaline Phosphatase Lactate Dehydrogenase C-Reactive Protein Total Protein Albumin Arterial Blood Glucose Coronavirus (PCR) 04/19/21 04/19/21 04/19/21 04:19 04:19 08:10 WBC MCV MCH MCHC RDW 15.7 H Lymph % (Auto) [place] % (Auto) Eos % (Auto) Lymph # (Auto) [place] # (Auto) Eos # (Auto) Baso # (Auto) Seg Neutrophils % Seg Neuts % (Manual) Lymphocytes % (Manual) Seg Neutrophils # Seg Neutrophils # Man Lymphocytes # (Manual) D-Dimer ABG pH POC ABG pCO2 POC ABG pO2 ABG pO2 ABG HCO3 ABG O2 Saturation ABG Base Excess ABG Oxyhemoglobin ABG Sodium ABG Chloride ABG Glucose Oxyhemoglobin Carboxyhemoglobin Sodium Potassium Chloride Carbon Dioxide BUN 27 H Creatinine 0.4 L Glucose 184 H POC Glucose 194 H Hemoglobin A1c Magnesium Ferritin AST ALT Alkaline Phosphatase Lactate Dehydrogenase C-Reactive Protein Total Protein Albumin 3.1 L Arterial Blood Glucose Coronavirus (PCR) 04/19/21 04/19/21 04/19/21 11:38 16:25 22:04 WBC MCV MCH MCHC RDW Lymph % (Auto) [place] % (Auto) Eos % (Auto) Lymph # (Auto) [place] # (Auto) Eos # (Auto) Baso # (Auto) Seg Neutrophils % Seg Neuts % (Manual) Lymphocytes % (Manual) Seg Neutrophils # Seg Neutrophils # Man Lymphocytes # (Manual) D-Dimer ABG pH POC ABG pCO2 POC ABG pO2 ABG pO2 ABG HCO3 ABG O2 Saturation ABG Base Excess ABG Oxyhemoglobin ABG Sodium ABG Chloride ABG Glucose Oxyhemoglobin Carboxyhemoglobin Sodium Potassium Chloride Carbon Dioxide BUN Creatinine Glucose POC Glucose 224 H 297 H 251 H Hemoglobin A1c Magnesium Ferritin AST ALT Alkaline Phosphatase Lactate Dehydrogenase C-Reactive Protein Total Protein Albumin Arterial Blood Glucose Coronavirus (PCR) 04/20/21 04/20/21 04/20/21 05:28 08:43 16:21 WBC MCV MCH MCHC RDW Lymph % (Auto) [place] % (Auto) Eos % (Auto) Lymph # (Auto) [place] # (Auto) Eos # (Auto) Baso # (Auto) Seg Neutrophils % Seg Neuts % (Manual) Lymphocytes % (Manual) Seg Neutrophils # Seg Neutrophils # Man Lymphocytes # (Manual) D-Dimer ABG pH POC ABG pCO2 POC ABG pO2 ABG pO2 ABG HCO3 ABG O2 Saturation ABG Base Excess ABG Oxyhemoglobin ABG Sodium ABG Chloride ABG Glucose Oxyhemoglobin Carboxyhemoglobin Sodium Potassium Chloride Carbon Dioxide BUN 27 H Creatinine Glucose 192 H POC Glucose 173 H 253 H Hemoglobin A1c Magnesium Ferritin AST ALT Alkaline Phosphatase Lactate Dehydrogenase C-Reactive Protein Total Protein Albumin 3.0 L Arterial Blood Glucose Coronavirus (PCR) 04/21/21 04/21/21 04/21/21 07:58 12:05 16:08 WBC MCV MCH MCHC RDW Lymph % (Auto) [place] % (Auto) Eos % (Auto) Lymph # (Auto) [place] # (Auto) Eos # (Auto) Baso # (Auto) Seg Neutrophils % Seg Neuts % (Manual) Lymphocytes % (Manual) Seg Neutrophils # Seg Neutrophils # Man Lymphocytes # (Manual) D-Dimer ABG pH POC ABG pCO2 POC ABG pO2 ABG pO2 ABG HCO3 ABG O2 Saturation ABG Base Excess ABG Oxyhemoglobin ABG Sodium ABG Chloride ABG Glucose Oxyhemoglobin Carboxyhemoglobin Sodium Potassium Chloride Carbon Dioxide BUN Creatinine Glucose POC Glucose 140 H 252 H 214 H Hemoglobin A1c Magnesium Ferritin AST ALT Alkaline Phosphatase Lactate Dehydrogenase C-Reactive Protein Total Protein Albumin Arterial Blood Glucose Coronavirus (PCR) 04/21/21 04/22/21 04/22/21 21:42 08:37 12:01 WBC MCV MCH MCHC RDW Lymph % (Auto) [place] % (Auto) Eos % (Auto) Lymph # (Auto) [place] # (Auto) Eos # (Auto) Baso # (Auto) Seg Neutrophils % Seg Neuts % (Manual) Lymphocytes % (Manual) Seg Neutrophils # Seg Neutrophils # Man Lymphocytes # (Manual) D-Dimer ABG pH 7.457 H POC ABG pCO2 POC ABG pO2 49.4 L ABG pO2 ABG HCO3 ABG O2 Saturation ABG Base Excess ABG Oxyhemoglobin 85.6 L ABG Sodium ABG Chloride ABG Glucose 121 H Oxyhemoglobin Carboxyhemoglobin 0.3 L Sodium Potassium Chloride Carbon Dioxide BUN Creatinine Glucose POC Glucose 162 H 227 H Hemoglobin A1c Magnesium Ferritin AST ALT Alkaline Phosphatase Lactate Dehydrogenase C-Reactive Protein Total Protein Albumin Arterial Blood Glucose 121 H Coronavirus (PCR) 04/22/21 04/22/21 04/23/21 16:26 22:23 04:52 WBC MCV MCH MCHC RDW 15.7 H Lymph % (Auto) [place] % (Auto) Eos % (Auto) Lymph # (Auto) [place] # (Auto) Eos # (Auto) Baso # (Auto) Seg Neutrophils % Seg Neuts % (Manual) Lymphocytes % (Manual) Seg Neutrophils # Seg Neutrophils # Man Lymphocytes # (Manual) D-Dimer ABG pH POC ABG pCO2 POC ABG pO2 ABG pO2 ABG HCO3 ABG O2 Saturation ABG Base Excess ABG Oxyhemoglobin ABG Sodium ABG Chloride ABG Glucose Oxyhemoglobin Carboxyhemoglobin Sodium Potassium Chloride Carbon Dioxide BUN Creatinine Glucose POC Glucose 200 H 136 H Hemoglobin A1c Magnesium Ferritin AST ALT Alkaline Phosphatase Lactate Dehydrogenase C-Reactive Protein Total Protein Albumin Arterial Blood Glucose Coronavirus (PCR) 04/23/21 04/23/21 04/23/21 04:52 12:06 17:41 WBC MCV MCH MCHC RDW Lymph % (Auto) [place] % (Auto) Eos % (Auto) Lymph # (Auto) [place] # (Auto) Eos # (Auto) Baso # (Auto) Seg Neutrophils % Seg Neuts % (Manual) Lymphocytes % (Manual) Seg Neutrophils # Seg Neutrophils # Man Lymphocytes # (Manual) D-Dimer ABG pH POC ABG pCO2 POC ABG pO2 ABG pO2 ABG HCO3 ABG O2 Saturation ABG Base Excess ABG Oxyhemoglobin ABG Sodium ABG Chloride ABG Glucose Oxyhemoglobin Carboxyhemoglobin Sodium 136 L Potassium Chloride 97.7 L Carbon Dioxide BUN 23 H Creatinine Glucose 101 H POC Glucose 202 H 169 H Hemoglobin A1c Magnesium Ferritin AST 46 H ALT Alkaline Phosphatase Lactate Dehydrogenase C-Reactive Protein Total Protein Albumin 3.3 L Arterial Blood Glucose Coronavirus (PCR) 04/23/21 04/24/21 04/24/21 23:08 05:17 08:38 WBC MCV MCH MCHC RDW Lymph % (Auto) [place] % (Auto) Eos % (Auto) Lymph # (Auto) [place] # (Auto) Eos # (Auto) Baso # (Auto) Seg Neutrophils % Seg Neuts % (Manual) Lymphocytes % (Manual) Seg Neutrophils # Seg Neutrophils # Man Lymphocytes # (Manual) D-Dimer ABG pH POC ABG pCO2 POC ABG pO2 ABG pO2 ABG HCO3 ABG O2 Saturation ABG Base Excess ABG Oxyhemoglobin ABG Sodium ABG Chloride ABG Glucose Oxyhemoglobin Carboxyhemoglobin Sodium Potassium Chloride Carbon Dioxide BUN Creatinine Glucose POC Glucose 111 H 108 H 126 H Hemoglobin A1c Magnesium Ferritin AST ALT Alkaline Phosphatase Lactate Dehydrogenase C-Reactive Protein Total Protein Albumin Arterial Blood Glucose Coronavirus (PCR) 04/24/21 04/24/21 04/24/21 11:54 17:57 21:23 WBC MCV MCH MCHC RDW Lymph % (Auto) [place] % (Auto) Eos % (Auto) Lymph # (Auto) [place] # (Auto) Eos # (Auto) Baso # (Auto) Seg Neutrophils % Seg Neuts % (Manual) Lymphocytes % (Manual) Seg Neutrophils # Seg Neutrophils # Man Lymphocytes # (Manual) D-Dimer ABG pH POC ABG pCO2 POC ABG pO2 ABG pO2 ABG HCO3 ABG O2 Saturation ABG Base Excess ABG Oxyhemoglobin ABG Sodium ABG Chloride ABG Glucose Oxyhemoglobin Carboxyhemoglobin Sodium Potassium Chloride Carbon Dioxide BUN Creatinine Glucose POC Glucose 147 H 177 H 138 H Hemoglobin A1c Magnesium Ferritin AST ALT Alkaline Phosphatase Lactate Dehydrogenase C-Reactive Protein Total Protein Albumin Arterial Blood Glucose Coronavirus (PCR) 04/25/21 04/25/21 04/25/21 07:06 11:23 15:43 WBC MCV MCH MCHC RDW Lymph % (Auto) [place] % (Auto) Eos % (Auto) Lymph # (Auto) [place] # (Auto) Eos # (Auto) Baso # (Auto) Seg Neutrophils % Seg Neuts % (Manual) Lymphocytes % (Manual) Seg Neutrophils # Seg Neutrophils # Man Lymphocytes # (Manual) D-Dimer ABG pH POC ABG pCO2 POC ABG pO2 ABG pO2 ABG HCO3 ABG O2 Saturation ABG Base Excess ABG Oxyhemoglobin ABG Sodium ABG Chloride ABG Glucose Oxyhemoglobin Carboxyhemoglobin Sodium Potassium Chloride Carbon Dioxide BUN Creatinine Glucose POC Glucose 147 H 169 H 227 H Hemoglobin A1c Magnesium Ferritin AST ALT Alkaline Phosphatase Lactate Dehydrogenase C-Reactive Protein Total Protein Albumin Arterial Blood Glucose Coronavirus (PCR) 04/25/21 04/26/21 04/26/21 21:22 02:45 05:15 WBC MCV MCH MCHC RDW Lymph % (Auto) [place] % (Auto) Eos % (Auto) Lymph # (Auto) [place] # (Auto) Eos # (Auto) Baso # (Auto) Seg Neutrophils % Seg Neuts % (Manual) Lymphocytes % (Manual) Seg Neutrophils # Seg Neutrophils # Man Lymphocytes # (Manual) D-Dimer ABG pH POC ABG pCO2 POC ABG pO2 70.7 L ABG pO2 ABG HCO3 ABG O2 Saturation ABG Base Excess ABG Oxyhemoglobin 93.0 L ABG Sodium 132.7 L ABG Chloride ABG Glucose 115 H Oxyhemoglobin Carboxyhemoglobin Sodium Potassium Chloride 95.8 L Carbon Dioxide 32 H BUN 20 H Creatinine Glucose 102 H POC Glucose 196 H Hemoglobin A1c Magnesium Ferritin AST ALT Alkaline Phosphatase Lactate Dehydrogenase C-Reactive Protein Total Protein Albumin Arterial Blood Glucose 115 H Coronavirus (PCR) 04/26/21 04/26/21 04/26/21 11:49 16:09 21:07 WBC MCV MCH MCHC RDW Lymph % (Auto) [place] % (Auto) Eos % (Auto) Lymph # (Auto) [place] # (Auto) Eos # (Auto) Baso # (Auto) Seg Neutrophils % Seg Neuts % (Manual) Lymphocytes % (Manual) Seg Neutrophils # Seg Neutrophils # Man Lymphocytes # (Manual) D-Dimer ABG pH POC ABG pCO2 POC ABG pO2 ABG pO2 ABG HCO3 ABG O2 Saturation ABG Base Excess ABG Oxyhemoglobin ABG Sodium ABG Chloride ABG Glucose Oxyhemoglobin Carboxyhemoglobin Sodium Potassium Chloride Carbon Dioxide BUN Creatinine Glucose POC Glucose 114 H 188 H 136 H Hemoglobin A1c Magnesium Ferritin AST ALT Alkaline Phosphatase Lactate Dehydrogenase C-Reactive Protein Total Protein Albumin Arterial Blood Glucose Coronavirus (PCR) 04/27/21 04/27/21 04/28/21 17:34 22:12 08:26 WBC MCV MCH MCHC RDW Lymph % (Auto) [place] % (Auto) Eos % (Auto) Lymph # (Auto) [place] # (Auto) Eos # (Auto) Baso # (Auto) Seg Neutrophils % Seg Neuts % (Manual) Lymphocytes % (Manual) Seg Neutrophils # Seg Neutrophils # Man Lymphocytes # (Manual) D-Dimer ABG pH POC ABG pCO2 POC ABG pO2 ABG pO2 ABG HCO3 ABG O2 Saturation ABG Base Excess ABG Oxyhemoglobin ABG Sodium ABG Chloride ABG Glucose Oxyhemoglobin Carboxyhemoglobin Sodium Potassium Chloride Carbon Dioxide BUN Creatinine Glucose POC Glucose 128 H 159 H 69 L Hemoglobin A1c Magnesium Ferritin AST ALT Alkaline Phosphatase Lactate Dehydrogenase C-Reactive Protein Total Protein Albumin Arterial Blood Glucose Coronavirus (PCR) 04/28/21 04/28/21 04/29/21 12:22 21:11 06:05 WBC MCV MCH MCHC RDW Lymph % (Auto) [place] % (Auto) Eos % (Auto) Lymph # (Auto) [place] # (Auto) Eos # (Auto) Baso # (Auto) Seg Neutrophils % Seg Neuts % (Manual) Lymphocytes % (Manual) Seg Neutrophils # Seg Neutrophils # Man Lymphocytes # (Manual) D-Dimer ABG pH POC ABG pCO2 POC ABG pO2 ABG pO2 ABG HCO3 ABG O2 Saturation ABG Base Excess ABG Oxyhemoglobin ABG Sodium ABG Chloride ABG Glucose Oxyhemoglobin Carboxyhemoglobin Sodium 132 L Potassium Chloride 94.4 L Carbon Dioxide BUN Creatinine 0.2 L D Glucose 140 H POC Glucose 141 H 171 H Hemoglobin A1c Magnesium Ferritin AST ALT Alkaline Phosphatase Lactate Dehydrogenase C-Reactive Protein Total Protein Albumin Arterial Blood Glucose Coronavirus (PCR) 04/29/21 04/29/21 04/29/21 06:05 07:24 11:36 WBC MCV MCH MCHC 35 H RDW 15.9 H Lymph % (Auto) [place] % (Auto) Eos % (Auto) Lymph # (Auto) [place] # (Auto) Eos # (Auto) Baso # (Auto) Seg Neutrophils % Seg Neuts % (Manual) Lymphocytes % (Manual) Seg Neutrophils # Seg Neutrophils # Man Lymphocytes # (Manual) D-Dimer ABG pH POC ABG pCO2 POC ABG pO2 ABG pO2 ABG HCO3 ABG O2 Saturation ABG Base Excess ABG Oxyhemoglobin ABG Sodium ABG Chloride ABG Glucose Oxyhemoglobin Carboxyhemoglobin Sodium Potassium Chloride Carbon Dioxide BUN Creatinine Glucose POC Glucose 141 H 220 H Hemoglobin A1c Magnesium Ferritin AST ALT Alkaline Phosphatase Lactate Dehydrogenase C-Reactive Protein Total Protein Albumin Arterial Blood Glucose Coronavirus (PCR) 04/29/21 04/29/21 04/29/21 14:23 15:30 17:06 WBC MCV MCH MCHC RDW Lymph % (Auto) [place] % (Auto) Eos % (Auto) Lymph # (Auto) [place] # (Auto) Eos # (Auto) Baso # (Auto) Seg Neutrophils % Seg Neuts % (Manual) Lymphocytes % (Manual) Seg Neutrophils # Seg Neutrophils # Man Lymphocytes # (Manual) D-Dimer ABG pH POC ABG pCO2 POC ABG pO2 ABG pO2 52.6 L ABG HCO3 ABG O2 Saturation 86.4 L ABG Base Excess ABG Oxyhemoglobin ABG Sodium ABG Chloride ABG Glucose Oxyhemoglobin 84.6 L Carboxyhemoglobin Sodium Potassium Chloride Carbon Dioxide BUN Creatinine Glucose POC Glucose 173 H 158 H Hemoglobin A1c Magnesium Ferritin AST ALT Alkaline Phosphatase Lactate Dehydrogenase C-Reactive Protein Total Protein Albumin Arterial Blood Glucose Coronavirus (PCR) 08/04/30/21 04/30/21 21:27 07:16 08:00 WBC MCV MCH MCHC RDW 16.1 H Lymph % (Auto) [place] % (Auto) Eos % (Auto) Lymph # (Auto) [place] # (Auto) Eos # (Auto) Baso # (Auto) Seg Neutrophils % Seg Neuts % (Manual) Lymphocytes % (Manual) Seg Neutrophils # Seg Neutrophils # Man Lymphocytes # (Manual) D-Dimer ABG pH POC ABG pCO2 POC ABG pO2 ABG pO2 ABG HCO3 ABG O2 Saturation ABG Base Excess ABG Oxyhemoglobin ABG Sodium ABG Chloride ABG Glucose Oxyhemoglobin Carboxyhemoglobin Sodium Potassium Chloride Carbon Dioxide BUN Creatinine Glucose POC Glucose 244 H 175 H Hemoglobin A1c Magnesium Ferritin AST ALT Alkaline Phosphatase Lactate Dehydrogenase C-Reactive Protein Total Protein Albumin Arterial Blood Glucose Coronavirus (PCR) 04/30/21 04/30/21 04/30/21 08:00 08:00 11:03 WBC MCV MCH MCHC RDW Lymph % (Auto) [place] % (Auto) Eos % (Auto) Lymph # (Auto) [place] # (Auto) Eos # (Auto) Baso # (Auto) Seg Neutrophils % Seg Neuts % (Manual) Lymphocytes % (Manual) Seg Neutrophils # Seg Neutrophils # Man Lymphocytes # (Manual) D-Dimer 1796.87 H ABG pH POC ABG pCO2 POC ABG pO2 ABG pO2 ABG HCO3 ABG O2 Saturation ABG Base Excess ABG Oxyhemoglobin ABG Sodium ABG Chloride ABG Glucose Oxyhemoglobin Carboxyhemoglobin Sodium 135 L Potassium Chloride 96.3 L Carbon Dioxide BUN Creatinine 0.2 L Glucose 153 H POC Glucose 183 H Hemoglobin A1c Magnesium Ferritin AST 41 H ALT 76 H Alkaline Phosphatase 160 H Lactate Dehydrogenase 522 H C-Reactive Protein Total Protein 6.1 L Albumin 3.1 L Arterial Blood Glucose Coronavirus (PCR) 04/30/21 04/30/21 05/01/21 17:04 22:17 05:39 WBC MCV MCH MCHC RDW Lymph % (Auto) [place] % (Auto) Eos % (Auto) Lymph # (Auto) [place] # (Auto) Eos # (Auto) Baso # (Auto) Seg Neutrophils % Seg Neuts % (Manual) Lymphocytes % (Manual) Seg Neutrophils # Seg Neutrophils # Man Lymphocytes # (Manual) D-Dimer ABG pH POC ABG pCO2 POC ABG pO2 ABG pO2 ABG HCO3 ABG O2 Saturation ABG Base Excess ABG Oxyhemoglobin ABG Sodium ABG Chloride ABG Glucose Oxyhemoglobin Carboxyhemoglobin Sodium 133 L Potassium Chloride 92.1 L Carbon Dioxide BUN 24 H Creatinine 0.4 L D Glucose 269 H POC Glucose 167 H 208 H Hemoglobin A1c Magnesium Ferritin AST ALT 66 H Alkaline Phosphatase 142 H Lactate Dehydrogenase C-Reactive Protein Total Protein Albumin 3.2 L Arterial Blood Glucose Coronavirus (PCR) 05/01/21 05/01/21 05/01/21 05:39 05:39 07:45 WBC MCV MCH MCHC RDW 16.0 H Lymph % (Auto) [place] % (Auto) Eos % (Auto) Lymph # (Auto) [place] # (Auto) Eos # (Auto) Baso # (Auto) Seg Neutrophils % Seg Neuts % (Manual) Lymphocytes % (Manual) Seg Neutrophils # Seg Neutrophils # Man Lymphocytes # (Manual) D-Dimer 3984.95 H ABG pH POC ABG pCO2 POC ABG pO2 ABG pO2 ABG HCO3 ABG O2 Saturation ABG Base Excess ABG Oxyhemoglobin ABG Sodium ABG Chloride ABG Glucose Oxyhemoglobin Carboxyhemoglobin Sodium Potassium Chloride Carbon Dioxide BUN Creatinine Glucose POC Glucose 229 H Hemoglobin A1c Magnesium Ferritin AST ALT Alkaline Phosphatase Lactate Dehydrogenase C-Reactive Protein Total Protein Albumin Arterial Blood Glucose Coronavirus (PCR) 05/01/21 05/01/21 05/01/21 12:10 15:46 21:06 WBC MCV MCH MCHC RDW Lymph % (Auto) [place] % (Auto) Eos % (Auto) Lymph # (Auto) [place] # (Auto) Eos # (Auto) Baso # (Auto) Seg Neutrophils % Seg Neuts % (Manual) Lymphocytes % (Manual) Seg Neutrophils # Seg Neutrophils # Man Lymphocytes # (Manual) D-Dimer ABG pH POC ABG pCO2 POC ABG pO2 ABG pO2 ABG HCO3 ABG O2 Saturation ABG Base Excess ABG Oxyhemoglobin ABG Sodium ABG Chloride ABG Glucose Oxyhemoglobin Carboxyhemoglobin Sodium Potassium Chloride Carbon Dioxide BUN Creatinine Glucose POC Glucose 296 H 279 H 232 H Hemoglobin A1c Magnesium Ferritin AST ALT Alkaline Phosphatase Lactate Dehydrogenase C-Reactive Protein Total Protein Albumin Arterial Blood Glucose Coronavirus (PCR) 05/02/21 05/02/21 05/02/21 04:55 04:55 04:55 WBC MCV MCH MCHC RDW 16.1 H Lymph % (Auto) [place] % (Auto) Eos % (Auto) Lymph # (Auto) [place] # (Auto) Eos # (Auto) Baso # (Auto) Seg Neutrophils % Seg Neuts % (Manual) Lymphocytes % (Manual) Seg Neutrophils # Seg Neutrophils # Man Lymphocytes # (Manual) D-Dimer 1401.08 H ABG pH POC ABG pCO2 POC ABG pO2 ABG pO2 ABG HCO3 ABG O2 Saturation ABG Base Excess ABG Oxyhemoglobin ABG Sodium ABG Chloride ABG Glucose Oxyhemoglobin Carboxyhemoglobin Sodium 131 L Potassium Chloride 95.5 L Carbon Dioxide BUN 20 H Creatinine 0.3 L Glucose 288 H POC Glucose Hemoglobin A1c Magnesium Ferritin AST ALT Alkaline Phosphatase Lactate Dehydrogenase C-Reactive Protein Total Protein 6.0 L Albumin 3.1 L Arterial Blood Glucose Coronavirus (PCR) 05/02/21 05/02/21 05/02/21 07:53 11:45 15:25 WBC MCV MCH MCHC RDW Lymph % (Auto) [place] % (Auto) Eos % (Auto) Lymph # (Auto) [place] # (Auto) Eos # (Auto) Baso # (Auto) Seg Neutrophils % Seg Neuts % (Manual) Lymphocytes % (Manual) Seg Neutrophils # Seg Neutrophils # Man Lymphocytes # (Manual) D-Dimer ABG pH POC ABG pCO2 POC ABG pO2 ABG pO2 ABG HCO3 ABG O2 Saturation ABG Base Excess ABG Oxyhemoglobin ABG Sodium ABG Chloride ABG Glucose Oxyhemoglobin Carboxyhemoglobin Sodium Potassium Chloride Carbon Dioxide BUN Creatinine Glucose POC Glucose 180 H 228 H 275 H Hemoglobin A1c Magnesium Ferritin AST ALT Alkaline Phosphatase Lactate Dehydrogenase C-Reactive Protein Total Protein Albumin Arterial Blood Glucose Coronavirus (PCR) 05/02/21 05/03/21 05/03/21 22:56 04:30 04:49 WBC MCV MCH MCHC RDW Lymph % (Auto) [place] % (Auto) Eos % (Auto) Lymph # (Auto) [place] # (Auto) Eos # (Auto) Baso # (Auto) Seg Neutrophils % Seg Neuts % (Manual) Lymphocytes % (Manual) Seg Neutrophils # Seg Neutrophils # Man Lymphocytes # (Manual) D-Dimer ABG pH 7.229 L POC ABG pCO2 POC ABG pO2 65.3 L ABG pO2 ABG HCO3 ABG O2 Saturation ABG Base Excess ABG Oxyhemoglobin 87.8 L ABG Sodium 133.0 L ABG Chloride 97.0 L ABG Glucose 403 H Oxyhemoglobin Carboxyhemoglobin Sodium 130 L Potassium Chloride 94.9 L Carbon Dioxide BUN 20 H Creatinine 0.5 L D Glucose 359 H POC Glucose 293 H Hemoglobin A1c Magnesium Ferritin AST 54 H ALT 75 H Alkaline Phosphatase 138 H Lactate Dehydrogenase C-Reactive Protein Total Protein Albumin 3.6 L Arterial Blood Glucose 403 H Coronavirus (PCR) 05/03/21 05/03/21 05/03/21 05:27 11:26 17:57 WBC MCV MCH MCHC RDW Lymph % (Auto) [place] % (Auto) Eos % (Auto) Lymph # (Auto) [place] # (Auto) Eos # (Auto) Baso # (Auto) Seg Neutrophils % Seg Neuts % (Manual) Lymphocytes % (Manual) Seg Neutrophils # Seg Neutrophils # Man Lymphocytes # (Manual) D-Dimer ABG pH POC ABG pCO2 POC ABG pO2 ABG pO2 ABG HCO3 ABG O2 Saturation ABG Base Excess ABG Oxyhemoglobin ABG Sodium ABG Chloride ABG Glucose Oxyhemoglobin Carboxyhemoglobin Sodium Potassium Chloride Carbon Dioxide BUN Creatinine Glucose POC Glucose 361 H 297 H 226 H Hemoglobin A1c Magnesium Ferritin AST ALT Alkaline Phosphatase Lactate Dehydrogenase C-Reactive Protein Total Protein Albumin Arterial Blood Glucose Coronavirus (PCR) 05/03/21 05/04/21 05/04/21 23:12 05:12 07:30 WBC MCV MCH MCHC RDW Lymph % (Auto) [place] % (Auto) Eos % (Auto) Lymph # (Auto) [place] # (Auto) Eos # (Auto) Baso # (Auto) Seg Neutrophils % Seg Neuts % (Manual) Lymphocytes % (Manual) Seg Neutrophils # Seg Neutrophils # Man Lymphocytes # (Manual) D-Dimer ABG pH POC ABG pCO2 POC ABG pO2 ABG pO2 ABG HCO3 ABG O2 Saturation ABG Base Excess ABG Oxyhemoglobin ABG Sodium ABG Chloride ABG Glucose Oxyhemoglobin Carboxyhemoglobin Sodium Potassium Chloride Carbon Dioxide BUN Creatinine Glucose POC Glucose 282 H 285 H 254 H Hemoglobin A1c Magnesium Ferritin AST ALT Alkaline Phosphatase Lactate Dehydrogenase C-Reactive Protein Total Protein Albumin Arterial Blood Glucose Coronavirus (PCR) 05/04/21 05/04/21 05/04/21 08:58 11:45 16:07 WBC MCV MCH MCHC RDW Lymph % (Auto) [place] % (Auto) Eos % (Auto) Lymph # (Auto) [place] # (Auto) Eos # (Auto) Baso # (Auto) Seg Neutrophils % Seg Neuts % (Manual) Lymphocytes % (Manual) Seg Neutrophils # Seg Neutrophils # Man Lymphocytes # (Manual) D-Dimer ABG pH POC ABG pCO2 POC ABG pO2 ABG pO2 ABG HCO3 ABG O2 Saturation ABG Base Excess ABG Oxyhemoglobin ABG Sodium ABG Chloride ABG Glucose Oxyhemoglobin Carboxyhemoglobin Sodium 134 L Potassium Chloride Carbon Dioxide BUN 20 H Creatinine 0.3 L Glucose 267 H POC Glucose 244 H 297 H Hemoglobin A1c Magnesium Ferritin AST ALT Alkaline Phosphatase Lactate Dehydrogenase C-Reactive Protein Total Protein 6.0 L Albumin 3.2 L Arterial Blood Glucose Coronavirus (PCR) 05/04/21 05/05/21 05/05/21 23:32 05:00 05:13 WBC MCV MCH MCHC RDW Lymph % (Auto) [place] % (Auto) Eos % (Auto) Lymph # (Auto) [place] # (Auto) Eos # (Auto) Baso # (Auto) Seg Neutrophils % Seg Neuts % (Manual) Lymphocytes % (Manual) Seg Neutrophils # Seg Neutrophils # Man Lymphocytes # (Manual) D-Dimer ABG pH POC ABG pCO2 POC ABG pO2 ABG pO2 ABG HCO3 ABG O2 Saturation ABG Base Excess ABG Oxyhemoglobin ABG Sodium ABG Chloride ABG Glucose Oxyhemoglobin Carboxyhemoglobin Sodium 132 L Potassium Chloride 96.4 L Carbon Dioxide BUN 22 H Creatinine 0.3 L Glucose 228 H POC Glucose 154 H 260 H Hemoglobin A1c Magnesium Ferritin AST ALT 67 H Alkaline Phosphatase Lactate Dehydrogenase C-Reactive Protein Total Protein 6.1 L Albumin 3.2 L Arterial Blood Glucose Coronavirus (PCR) 05/05/21 05/05/21 05/05/21 11:32 17:49 23:07 WBC MCV MCH MCHC RDW Lymph % (Auto) [place] % (Auto) Eos % (Auto) Lymph # (Auto) [place] # (Auto) Eos # (Auto) Baso # (Auto) Seg Neutrophils % Seg Neuts % (Manual) Lymphocytes % (Manual) Seg Neutrophils # Seg Neutrophils # Man Lymphocytes # (Manual) D-Dimer ABG pH POC ABG pCO2 POC ABG pO2 ABG pO2 ABG HCO3 ABG O2 Saturation ABG Base Excess ABG Oxyhemoglobin ABG Sodium ABG Chloride ABG Glucose Oxyhemoglobin Carboxyhemoglobin Sodium Potassium Chloride Carbon Dioxide BUN Creatinine Glucose POC Glucose 279 H 308 H 213 H Hemoglobin A1c Magnesium Ferritin AST ALT Alkaline Phosphatase Lactate Dehydrogenase C-Reactive Protein Total Protein Albumin Arterial Blood Glucose Coronavirus (PCR) 05/06/21 05/06/21 05/06/21 05:00 05:00 05:20 WBC MCV MCH MCHC RDW 16.8 H Lymph % (Auto) [place] % (Auto) Eos % (Auto) Lymph # (Auto) [place] # (Auto) Eos # (Auto) Baso # (Auto) Seg Neutrophils % Seg Neuts % (Manual) 99.0 H Lymphocytes % (Manual) Seg Neutrophils # Seg Neutrophils # Man 10.9 H Lymphocytes # (Manual) 0.0 L D-Dimer ABG pH POC ABG pCO2 POC ABG pO2 ABG pO2 ABG HCO3 ABG O2 Saturation ABG Base Excess ABG Oxyhemoglobin ABG Sodium ABG Chloride ABG Glucose Oxyhemoglobin Carboxyhemoglobin Sodium 133 L Potassium Chloride Carbon Dioxide BUN 21 H Creatinine 0.3 L Glucose 259 H POC Glucose 308 H Hemoglobin A1c Magnesium Ferritin AST ALT Alkaline Phosphatase Lactate Dehydrogenase C-Reactive Protein Total Protein Albumin 3.2 L Arterial Blood Glucose Coronavirus (PCR) 05/06/21 05/06/21 05/06/21 11:24 17:54 21:32 WBC MCV MCH MCHC RDW Lymph % (Auto) [place] % (Auto) Eos % (Auto) Lymph # (Auto) [place] # (Auto) Eos # (Auto) Baso # (Auto) Seg Neutrophils % Seg Neuts % (Manual) Lymphocytes % (Manual) Seg Neutrophils # Seg Neutrophils # Man Lymphocytes # (Manual) D-Dimer ABG pH POC ABG pCO2 POC ABG pO2 ABG pO2 ABG HCO3 ABG O2 Saturation ABG Base Excess ABG Oxyhemoglobin ABG Sodium ABG Chloride ABG Glucose Oxyhemoglobin Carboxyhemoglobin Sodium Potassium Chloride Carbon Dioxide BUN Creatinine Glucose POC Glucose 262 H 124 H 246 H Hemoglobin A1c Magnesium Ferritin AST ALT Alkaline Phosphatase Lactate Dehydrogenase C-Reactive Protein Total Protein Albumin Arterial Blood Glucose Coronavirus (PCR) 05/06/21 05/07/21 05/07/21 23:10 04:54 04:54 WBC MCV MCH MCHC RDW Lymph % (Auto) [place] % (Auto) Eos % (Auto) Lymph # (Auto) [place] # (Auto) Eos # (Auto) Baso # (Auto) Seg Neutrophils % Seg Neuts % (Manual) Lymphocytes % (Manual) Seg Neutrophils # Seg Neutrophils # Man Lymphocytes # (Manual) D-Dimer 1609.28 H ABG pH POC ABG pCO2 POC ABG pO2 ABG pO2 ABG HCO3 ABG O2 Saturation ABG Base Excess ABG Oxyhemoglobin ABG Sodium ABG Chloride ABG Glucose Oxyhemoglobin Carboxyhemoglobin Sodium 136 L Potassium Chloride Carbon Dioxide BUN 23 H Creatinine 0.3 L Glucose 110 H POC Glucose 249 H Hemoglobin A1c Magnesium Ferritin AST ALT Alkaline Phosphatase Lactate Dehydrogenase C-Reactive Protein Total Protein 6.2 L Albumin 3.0 L Arterial Blood Glucose Coronavirus (PCR) 05/07/21 05/07/21 05/07/21 04:54 04:54 11:41 WBC MCV MCH MCHC RDW Lymph % (Auto) [place] % (Auto) Eos % (Auto) Lymph # (Auto) [place] # (Auto) Eos # (Auto) Baso # (Auto) Seg Neutrophils % Seg Neuts % (Manual) Lymphocytes % (Manual) Seg Neutrophils # Seg Neutrophils # Man Lymphocytes # (Manual) D-Dimer ABG pH POC ABG pCO2 POC ABG pO2 ABG pO2 ABG HCO3 ABG O2 Saturation ABG Base Excess ABG Oxyhemoglobin ABG Sodium ABG Chloride ABG Glucose Oxyhemoglobin Carboxyhemoglobin Sodium Potassium Chloride Carbon Dioxide BUN Creatinine Glucose POC Glucose 118 H Hemoglobin A1c Magnesium Ferritin 296.1 H AST ALT Alkaline Phosphatase Lactate Dehydrogenase 724 H C-Reactive Protein Total Protein Albumin Arterial Blood Glucose Coronavirus (PCR) 05/07/21 05/07/21 05/08/21 16:43 22:34 06:44 WBC MCV MCH MCHC RDW Lymph % (Auto) [place] % (Auto) Eos % (Auto) Lymph # (Auto) [place] # (Auto) Eos # (Auto) Baso # (Auto) Seg Neutrophils % Seg Neuts % (Manual) Lymphocytes % (Manual) Seg Neutrophils # Seg Neutrophils # Man Lymphocytes # (Manual) D-Dimer ABG pH POC ABG pCO2 POC ABG pO2 ABG pO2 ABG HCO3 ABG O2 Saturation ABG Base Excess ABG Oxyhemoglobin ABG Sodium ABG Chloride ABG Glucose Oxyhemoglobin Carboxyhemoglobin Sodium Potassium Chloride Carbon Dioxide BUN Creatinine Glucose POC Glucose 159 H 233 H 235 H Hemoglobin A1c Magnesium Ferritin AST ALT Alkaline Phosphatase Lactate Dehydrogenase C-Reactive Protein Total Protein Albumin Arterial Blood Glucose Coronavirus (PCR) 05/08/21 05/08/21 05/08/21 07:49 11:56 17:13 WBC MCV MCH MCHC RDW Lymph % (Auto) [place] % (Auto) Eos % (Auto) Lymph # (Auto) [place] # (Auto) Eos # (Auto) Baso # (Auto) Seg Neutrophils % Seg Neuts % (Manual) Lymphocytes % (Manual) Seg Neutrophils # Seg Neutrophils # Man Lymphocytes # (Manual) D-Dimer ABG pH POC ABG pCO2 POC ABG pO2 ABG pO2 ABG HCO3 ABG O2 Saturation ABG Base Excess ABG Oxyhemoglobin ABG Sodium ABG Chloride ABG Glucose Oxyhemoglobin Carboxyhemoglobin Sodium Potassium Chloride Carbon Dioxide BUN Creatinine Glucose POC Glucose 219 H 184 H 182 H Hemoglobin A1c Magnesium Ferritin AST ALT Alkaline Phosphatase Lactate Dehydrogenase C-Reactive Protein Total Protein Albumin Arterial Blood Glucose Coronavirus (PCR) 05/08/21 05/09/21 05/09/21 23:35 05:20 05:20 WBC MCV MCH MCHC RDW Lymph % (Auto) [place] % (Auto) Eos % (Auto) Lymph # (Auto) [place] # (Auto) Eos # (Auto) Baso # (Auto) Seg Neutrophils % Seg Neuts % (Manual) Lymphocytes % (Manual) Seg Neutrophils # Seg Neutrophils # Man Lymphocytes # (Manual) D-Dimer 1003.87 H ABG pH POC ABG pCO2 POC ABG pO2 ABG pO2 ABG HCO3 ABG O2 Saturation ABG Base Excess ABG Oxyhemoglobin ABG Sodium ABG Chloride ABG Glucose Oxyhemoglobin Carboxyhemoglobin Sodium Potassium Chloride Carbon Dioxide BUN Creatinine Glucose POC Glucose 198 H Hemoglobin A1c Magnesium Ferritin 378.7 H AST ALT Alkaline Phosphatase Lactate Dehydrogenase C-Reactive Protein Total Protein Albumin Arterial Blood Glucose Coronavirus (PCR) 05/09/21 05/09/21 05/09/21 05:20 06:04 12:53 WBC MCV MCH MCHC RDW Lymph % (Auto) [place] % (Auto) Eos % (Auto) Lymph # (Auto) [place] # (Auto) Eos # (Auto) Baso # (Auto) Seg Neutrophils % Seg Neuts % (Manual) Lymphocytes % (Manual) Seg Neutrophils # Seg Neutrophils # Man Lymphocytes # (Manual) D-Dimer ABG pH POC ABG pCO2 POC ABG pO2 ABG pO2 ABG HCO3 ABG O2 Saturation ABG Base Excess ABG Oxyhemoglobin ABG Sodium ABG Chloride ABG Glucose Oxyhemoglobin Carboxyhemoglobin Sodium Potassium Chloride Carbon Dioxide BUN Creatinine Glucose POC Glucose 159 H 180 H Hemoglobin A1c Magnesium Ferritin AST ALT Alkaline Phosphatase Lactate Dehydrogenase 558 H C-Reactive Protein 2.40 H Total Protein Albumin Arterial Blood Glucose Coronavirus (PCR) 05/09/21 05/09/21 05/10/21 16:43 21:27 10:18 WBC MCV MCH MCHC RDW Lymph % (Auto) [place] % (Auto) Eos % (Auto) Lymph # (Auto) [place] # (Auto) Eos # (Auto) Baso # (Auto) Seg Neutrophils % Seg Neuts % (Manual) Lymphocytes % (Manual) Seg Neutrophils # Seg Neutrophils # Man Lymphocytes # (Manual) D-Dimer ABG pH POC ABG pCO2 POC ABG pO2 ABG pO2 ABG HCO3 ABG O2 Saturation ABG Base Excess ABG Oxyhemoglobin ABG Sodium ABG Chloride ABG Glucose Oxyhemoglobin Carboxyhemoglobin Sodium Potassium Chloride Carbon Dioxide BUN Creatinine Glucose POC Glucose 212 H 285 H 261 H Hemoglobin A1c Magnesium Ferritin AST ALT Alkaline Phosphatase Lactate Dehydrogenase C-Reactive Protein Total Protein Albumin Arterial Blood Glucose Coronavirus (PCR) 05/10/21 05/10/21 05/11/21 17:58 18:02 00:29 WBC MCV MCH MCHC RDW Lymph % (Auto) [place] % (Auto) Eos % (Auto) Lymph # (Auto) [place] # (Auto) Eos # (Auto) Baso # (Auto) Seg Neutrophils % Seg Neuts % (Manual) Lymphocytes % (Manual) Seg Neutrophils # Seg Neutrophils # Man Lymphocytes # (Manual) D-Dimer ABG pH POC ABG pCO2 POC ABG pO2 ABG pO2 ABG HCO3 ABG O2 Saturation ABG Base Excess ABG Oxyhemoglobin ABG Sodium ABG Chloride ABG Glucose Oxyhemoglobin Carboxyhemoglobin Sodium Potassium Chloride Carbon Dioxide BUN Creatinine Glucose POC Glucose 213 H 179 H 149 H Hemoglobin A1c Magnesium Ferritin AST ALT Alkaline Phosphatase Lactate Dehydrogenase C-Reactive Protein Total Protein Albumin Arterial Blood Glucose Coronavirus (PCR) 05/11/21 05/11/21 05/11/21 05:22 11:32 17:00 WBC 14.9 H MCV MCH MCHC RDW 18.9 H Lymph % (Auto) 4.9 L [place] % (Auto) Eos % (Auto) Lymph # (Auto) 0.7 L [place] # (Auto) Eos # (Auto) Baso # (Auto) 0.2 H Seg Neutrophils % Seg Neuts % (Manual) Lymphocytes % (Manual) Seg Neutrophils # 13.3 H Seg Neutrophils # Man Lymphocytes # (Manual) D-Dimer ABG pH POC ABG pCO2 POC ABG pO2 ABG pO2 ABG HCO3 ABG O2 Saturation ABG Base Excess ABG Oxyhemoglobin ABG Sodium ABG Chloride ABG Glucose Oxyhemoglobin Carboxyhemoglobin Sodium Potassium Chloride Carbon Dioxide BUN Creatinine Glucose POC Glucose 162 H 179 H Hemoglobin A1c Magnesium Ferritin AST ALT Alkaline Phosphatase Lactate Dehydrogenase C-Reactive Protein Total Protein Albumin Arterial Blood Glucose Coronavirus (PCR) 05/11/21 05/11/21 05/11/21 17:00 17:33 22:03 WBC MCV MCH MCHC RDW Lymph % (Auto) [place] % (Auto) Eos % (Auto) Lymph # (Auto) [place] # (Auto) Eos # (Auto) Baso # (Auto) Seg Neutrophils % Seg Neuts % (Manual) Lymphocytes % (Manual) Seg Neutrophils # Seg Neutrophils # Man Lymphocytes # (Manual) D-Dimer ABG pH POC ABG pCO2 POC ABG pO2 ABG pO2 ABG HCO3 ABG O2 Saturation ABG Base Excess ABG Oxyhemoglobin ABG Sodium ABG Chloride ABG Glucose Oxyhemoglobin Carboxyhemoglobin Sodium 135 L Potassium Chloride 97.3 L Carbon Dioxide BUN 21 H Creatinine 0.3 L Glucose 133 H POC Glucose 140 H 282 H Hemoglobin A1c Magnesium Ferritin AST ALT 60 H Alkaline Phosphatase Lactate Dehydrogenase C-Reactive Protein Total Protein Albumin 3.1 L Arterial Blood Glucose Coronavirus (PCR) 05/12/21 05/12/21 05/12/21 04:05 04:05 04:05 WBC MCV MCH MCHC RDW 18.4 H Lymph % (Auto) [place] % (Auto) Eos % (Auto) Lymph # (Auto) [place] # (Auto) Eos # (Auto) Baso # (Auto) Seg Neutrophils % Seg Neuts % (Manual) 94.0 H Lymphocytes % (Manual) 4.0 L Seg Neutrophils # Seg Neutrophils # Man Lymphocytes # (Manual) 0.3 L D-Dimer ABG pH POC ABG pCO2 POC ABG pO2 ABG pO2 ABG HCO3 ABG O2 Saturation ABG Base Excess ABG Oxyhemoglobin ABG Sodium ABG Chloride ABG Glucose Oxyhemoglobin Carboxyhemoglobin Sodium 136 L Potassium Chloride Carbon Dioxide BUN 18 H Creatinine 0.2 L Glucose 142 H POC Glucose Hemoglobin A1c Magnesium Ferritin 350.7 H AST ALT Alkaline Phosphatase Lactate Dehydrogenase 546 H C-Reactive Protein Total Protein 6.1 L Albumin 3.0 L Arterial Blood Glucose Coronavirus (PCR) 05/12/21 05/12/21 05/12/21 05:11 11:17 16:27 WBC MCV MCH MCHC RDW Lymph % (Auto) [place] % (Auto) Eos % (Auto) Lymph # (Auto) [place] # (Auto) Eos # (Auto) Baso # (Auto) Seg Neutrophils % Seg Neuts % (Manual) Lymphocytes % (Manual) Seg Neutrophils # Seg Neutrophils # Man Lymphocytes # (Manual) D-Dimer ABG pH POC ABG pCO2 POC ABG pO2 ABG pO2 ABG HCO3 ABG O2 Saturation ABG Base Excess ABG Oxyhemoglobin ABG Sodium ABG Chloride ABG Glucose Oxyhemoglobin Carboxyhemoglobin Sodium Potassium Chloride Carbon Dioxide BUN Creatinine Glucose POC Glucose 152 H 190 H 261 H Hemoglobin A1c Magnesium Ferritin AST ALT Alkaline Phosphatase Lactate Dehydrogenase C-Reactive Protein Total Protein Albumin Arterial Blood Glucose Coronavirus (PCR) 05/12/21 05/13/21 05/13/21 20:55 11:08 21:41 WBC MCV MCH MCHC RDW Lymph % (Auto) [place] % (Auto) Eos % (Auto) Lymph # (Auto) [place] # (Auto) Eos # (Auto) Baso # (Auto) Seg Neutrophils % Seg Neuts % (Manual) Lymphocytes % (Manual) Seg Neutrophils # Seg Neutrophils # Man Lymphocytes # (Manual) D-Dimer ABG pH POC ABG pCO2 POC ABG pO2 ABG pO2 ABG HCO3 ABG O2 Saturation ABG Base Excess ABG Oxyhemoglobin ABG Sodium ABG Chloride ABG Glucose Oxyhemoglobin Carboxyhemoglobin Sodium Potassium Chloride Carbon Dioxide BUN Creatinine Glucose POC Glucose 231 H 106 H 174 H Hemoglobin A1c Magnesium Ferritin AST ALT Alkaline Phosphatase Lactate Dehydrogenase C-Reactive Protein Total Protein Albumin Arterial Blood Glucose Coronavirus (PCR) 05/14/21 05/14/21 05/14/21 00:53 02:23 06:06 WBC MCV MCH MCHC RDW Lymph % (Auto) [place] % (Auto) Eos % (Auto) Lymph # (Auto) [place] # (Auto) Eos # (Auto) Baso # (Auto) Seg Neutrophils % Seg Neuts % (Manual) Lymphocytes % (Manual) Seg Neutrophils # Seg Neutrophils # Man Lymphocytes # (Manual) D-Dimer ABG pH POC ABG pCO2 POC ABG pO2 ABG pO2 130.3 H ABG HCO3 30.6 H ABG O2 Saturation ABG Base Excess 4.9 H ABG Oxyhemoglobin ABG Sodium ABG Chloride ABG Glucose Oxyhemoglobin Carboxyhemoglobin Sodium Potassium Chloride Carbon Dioxide BUN Creatinine Glucose POC Glucose 229 H 119 H Hemoglobin A1c Magnesium Ferritin AST ALT Alkaline Phosphatase Lactate Dehydrogenase C-Reactive Protein Total Protein Albumin Arterial Blood Glucose Coronavirus (PCR) 05/14/21 05/14/21 05/14/21 07:13 07:13 07:13 WBC MCV MCH MCHC RDW Lymph % (Auto) [place] % (Auto) Eos % (Auto) Lymph # (Auto) [place] # (Auto) Eos # (Auto) Baso # (Auto) Seg Neutrophils % Seg Neuts % (Manual) Lymphocytes % (Manual) Seg Neutrophils # Seg Neutrophils # Man Lymphocytes # (Manual) D-Dimer 712.80 H ABG pH POC ABG pCO2 POC ABG pO2 ABG pO2 ABG HCO3 ABG O2 Saturation ABG Base Excess ABG Oxyhemoglobin ABG Sodium ABG Chloride ABG Glucose Oxyhemoglobin Carboxyhemoglobin Sodium 133 L Potassium Chloride 95.5 L Carbon Dioxide 32 H BUN Creatinine 0.2 L Glucose 137 H POC Glucose Hemoglobin A1c Magnesium Ferritin 283.5 H AST ALT 63 H Alkaline Phosphatase Lactate Dehydrogenase 563 H C-Reactive Protein Total Protein 6.1 L Albumin 3.0 L Arterial Blood Glucose Coronavirus (PCR) 05/14/21 05/14/21 05/14/21 12:21 15:33 21:50 WBC MCV MCH MCHC RDW Lymph % (Auto) [place] % (Auto) Eos % (Auto) Lymph # (Auto) [place] # (Auto) Eos # (Auto) Baso # (Auto) Seg Neutrophils % Seg Neuts % (Manual) Lymphocytes % (Manual) Seg Neutrophils # Seg Neutrophils # Man Lymphocytes # (Manual) D-Dimer ABG pH POC ABG pCO2 POC ABG pO2 ABG pO2 ABG HCO3 ABG O2 Saturation ABG Base Excess ABG Oxyhemoglobin ABG Sodium ABG Chloride ABG Glucose Oxyhemoglobin Carboxyhemoglobin Sodium Potassium Chloride Carbon Dioxide BUN Creatinine Glucose POC Glucose 143 H 204 H 202 H Hemoglobin A1c Magnesium Ferritin AST ALT Alkaline Phosphatase Lactate Dehydrogenase C-Reactive Protein Total Protein Albumin Arterial Blood Glucose Coronavirus (PCR) 05/15/21 05/15/21 05/15/21 05:05 11:12 16:39 WBC MCV MCH MCHC RDW Lymph % (Auto) [place] % (Auto) Eos % (Auto) Lymph # (Auto) [place] # (Auto) Eos # (Auto) Baso # (Auto) Seg Neutrophils % Seg Neuts % (Manual) Lymphocytes % (Manual) Seg Neutrophils # Seg Neutrophils # Man Lymphocytes # (Manual) D-Dimer ABG pH POC ABG pCO2 POC ABG pO2 ABG pO2 ABG HCO3 ABG O2 Saturation ABG Base Excess ABG Oxyhemoglobin ABG Sodium ABG Chloride ABG Glucose Oxyhemoglobin Carboxyhemoglobin Sodium Potassium Chloride Carbon Dioxide BUN Creatinine Glucose POC Glucose 125 H 201 H 241 H Hemoglobin A1c Magnesium Ferritin AST ALT Alkaline Phosphatase Lactate Dehydrogenase C-Reactive Protein Total Protein Albumin Arterial Blood Glucose Coronavirus (PCR) 05/15/21 05/16/21 05/16/21 21:31 05:04 10:40 WBC MCV MCH MCHC RDW Lymph % (Auto) [place] % (Auto) Eos % (Auto) Lymph # (Auto) [place] # (Auto) Eos # (Auto) Baso # (Auto) Seg Neutrophils % Seg Neuts % (Manual) Lymphocytes % (Manual) Seg Neutrophils # Seg Neutrophils # Man Lymphocytes # (Manual) D-Dimer ABG pH POC ABG pCO2 POC ABG pO2 ABG pO2 ABG HCO3 ABG O2 Saturation ABG Base Excess ABG Oxyhemoglobin ABG Sodium ABG Chloride ABG Glucose Oxyhemoglobin Carboxyhemoglobin Sodium Potassium Chloride Carbon Dioxide BUN Creatinine Glucose POC Glucose 234 H 123 H 231 H Hemoglobin A1c Magnesium Ferritin AST ALT Alkaline Phosphatase Lactate Dehydrogenase C-Reactive Protein Total Protein Albumin Arterial Blood Glucose Coronavirus (PCR) 05/16/21 05/16/21 05/17/21 18:23 21:29 06:20 WBC MCV MCH MCHC RDW 18.8 H Lymph % (Auto) 10.2 L [place] % (Auto) Eos % (Auto) Lymph # (Auto) 0.8 L [place] # (Auto) Eos # (Auto) Baso # (Auto) Seg Neutrophils % 85.8 H Seg Neuts % (Manual) Lymphocytes % (Manual) Seg Neutrophils # Seg Neutrophils # Man Lymphocytes # (Manual) D-Dimer ABG pH POC ABG pCO2 POC ABG pO2 ABG pO2 ABG HCO3 ABG O2 Saturation ABG Base Excess ABG Oxyhemoglobin ABG Sodium ABG Chloride ABG Glucose Oxyhemoglobin Carboxyhemoglobin Sodium Potassium Chloride Carbon Dioxide BUN Creatinine Glucose POC Glucose 266 H 234 H Hemoglobin A1c Magnesium Ferritin AST ALT Alkaline Phosphatase Lactate Dehydrogenase C-Reactive Protein Total Protein Albumin Arterial Blood Glucose Coronavirus (PCR) 05/17/21 05/17/21 05/17/21 06:20 11:06 16:36 WBC MCV MCH MCHC RDW Lymph % (Auto) [place] % (Auto) Eos % (Auto) Lymph # (Auto) [place] # (Auto) Eos # (Auto) Baso # (Auto) Seg Neutrophils % Seg Neuts % (Manual) Lymphocytes % (Manual) Seg Neutrophils # Seg Neutrophils # Man Lymphocytes # (Manual) D-Dimer ABG pH POC ABG pCO2 POC ABG pO2 ABG pO2 ABG HCO3 ABG O2 Saturation ABG Base Excess ABG Oxyhemoglobin ABG Sodium ABG Chloride ABG Glucose Oxyhemoglobin Carboxyhemoglobin Sodium Potassium Chloride Carbon Dioxide 33 H BUN Creatinine 0.2 L Glucose 101 H POC Glucose 209 H 180 H Hemoglobin A1c Magnesium Ferritin AST ALT Alkaline Phosphatase Lactate Dehydrogenase C-Reactive Protein Total Protein Albumin Arterial Blood Glucose Coronavirus (PCR) 05/17/21 05/18/21 05/18/21 21:06 12:00 15:06 WBC MCV MCH MCHC RDW Lymph % (Auto) [place] % (Auto) Eos % (Auto) Lymph # (Auto) [place] # (Auto) Eos # (Auto) Baso # (Auto) Seg Neutrophils % Seg Neuts % (Manual) Lymphocytes % (Manual) Seg Neutrophils # Seg Neutrophils # Man Lymphocytes # (Manual) D-Dimer 874.02 H ABG pH POC ABG pCO2 POC ABG pO2 ABG pO2 ABG HCO3 ABG O2 Saturation ABG Base Excess ABG Oxyhemoglobin ABG Sodium ABG Chloride ABG Glucose Oxyhemoglobin Carboxyhemoglobin Sodium Potassium Chloride Carbon Dioxide BUN Creatinine Glucose POC Glucose 256 H 139 H Hemoglobin A1c Magnesium Ferritin AST ALT Alkaline Phosphatase Lactate Dehydrogenase C-Reactive Protein Total Protein Albumin Arterial Blood Glucose Coronavirus (PCR) 05/18/21 05/18/21 05/18/21 15:06 15:06 16:08 WBC MCV MCH MCHC RDW Lymph % (Auto) [place] % (Auto) Eos % (Auto) Lymph # (Auto) [place] # (Auto) Eos # (Auto) Baso # (Auto) Seg Neutrophils % Seg Neuts % (Manual) Lymphocytes % (Manual) Seg Neutrophils # Seg Neutrophils # Man Lymphocytes # (Manual) D-Dimer ABG pH POC ABG pCO2 POC ABG pO2 ABG pO2 ABG HCO3 ABG O2 Saturation ABG Base Excess ABG Oxyhemoglobin ABG Sodium ABG Chloride ABG Glucose Oxyhemoglobin Carboxyhemoglobin Sodium Potassium Chloride Carbon Dioxide BUN Creatinine Glucose POC Glucose 178 H Hemoglobin A1c Magnesium Ferritin 289.6 H AST ALT Alkaline Phosphatase Lactate Dehydrogenase 605 H C-Reactive Protein Total Protein Albumin Arterial Blood Glucose Coronavirus (PCR) 05/18/21 05/19/21 05/19/21 21:22 11:57 15:26 WBC MCV MCH MCHC RDW Lymph % (Auto) [place] % (Auto) Eos % (Auto) Lymph # (Auto) [place] # (Auto) Eos # (Auto) Baso # (Auto) Seg Neutrophils % Seg Neuts % (Manual) Lymphocytes % (Manual) Seg Neutrophils # Seg Neutrophils # Man Lymphocytes # (Manual) D-Dimer ABG pH POC ABG pCO2 POC ABG pO2 ABG pO2 ABG HCO3 ABG O2 Saturation ABG Base Excess ABG Oxyhemoglobin ABG Sodium ABG Chloride ABG Glucose Oxyhemoglobin Carboxyhemoglobin Sodium Potassium Chloride Carbon Dioxide BUN Creatinine Glucose POC Glucose 241 H 201 H 209 H Hemoglobin A1c Magnesium Ferritin AST ALT Alkaline Phosphatase Lactate Dehydrogenase C-Reactive Protein Total Protein Albumin Arterial Blood Glucose Coronavirus (PCR) 05/19/21 05/20/21 05/20/21 20:59 07:38 08:01 WBC MCV MCH MCHC RDW 19.7 H Lymph % (Auto) 8.3 L [place] % (Auto) Eos % (Auto) Lymph # (Auto) 0.8 L [place] # (Auto) Eos # (Auto) Baso # (Auto) Seg Neutrophils % 88.6 H Seg Neuts % (Manual) Lymphocytes % (Manual) Seg Neutrophils # 8.4 H Seg Neutrophils # Man Lymphocytes # (Manual) D-Dimer ABG pH POC ABG pCO2 POC ABG pO2 ABG pO2 ABG HCO3 ABG O2 Saturation ABG Base Excess ABG Oxyhemoglobin ABG Sodium ABG Chloride ABG Glucose Oxyhemoglobin Carboxyhemoglobin Sodium Potassium Chloride Carbon Dioxide BUN Creatinine Glucose POC Glucose 226 H 130 H Hemoglobin A1c Magnesium Ferritin AST ALT Alkaline Phosphatase Lactate Dehydrogenase C-Reactive Protein Total Protein Albumin Arterial Blood Glucose Coronavirus (PCR) 05/20/21 05/20/21 05/20/21 08:01 11:00 16:43 WBC MCV MCH MCHC RDW Lymph % (Auto) [place] % (Auto) Eos % (Auto) Lymph # (Auto) [place] # (Auto) Eos # (Auto) Baso # (Auto) Seg Neutrophils % Seg Neuts % (Manual) Lymphocytes % (Manual) Seg Neutrophils # Seg Neutrophils # Man Lymphocytes # (Manual) D-Dimer ABG pH POC ABG pCO2 POC ABG pO2 ABG pO2 ABG HCO3 ABG O2 Saturation ABG Base Excess ABG Oxyhemoglobin ABG Sodium ABG Chloride ABG Glucose Oxyhemoglobin Carboxyhemoglobin Sodium Potassium Chloride Carbon Dioxide BUN 18 H Creatinine 0.2 L Glucose 132 H POC Glucose 237 H 240 H Hemoglobin A1c Magnesium Ferritin AST ALT Alkaline Phosphatase Lactate Dehydrogenase C-Reactive Protein Total Protein Albumin Arterial Blood Glucose Coronavirus (PCR) 05/20/21 05/21/21 05/21/21 21:21 07:35 11:32 WBC MCV MCH MCHC RDW Lymph % (Auto) [place] % (Auto) Eos % (Auto) Lymph # (Auto) [place] # (Auto) Eos # (Auto) Baso # (Auto) Seg Neutrophils % Seg Neuts % (Manual) Lymphocytes % (Manual) Seg Neutrophils # Seg Neutrophils # Man Lymphocytes # (Manual) D-Dimer ABG pH POC ABG pCO2 POC ABG pO2 ABG pO2 ABG HCO3 ABG O2 Saturation ABG Base Excess ABG Oxyhemoglobin ABG Sodium ABG Chloride ABG Glucose Oxyhemoglobin Carboxyhemoglobin Sodium Potassium Chloride Carbon Dioxide BUN Creatinine Glucose POC Glucose 241 H 162 H 171 H Hemoglobin A1c Magnesium Ferritin AST ALT Alkaline Phosphatase Lactate Dehydrogenase C-Reactive Protein Total Protein Albumin Arterial Blood Glucose Coronavirus (PCR) 05/21/21 05/21/21 05/22/21 16:22 20:43 05:14 WBC MCV MCH MCHC RDW Lymph % (Auto) [place] % (Auto) Eos % (Auto) Lymph # (Auto) [place] # (Auto) Eos # (Auto) Baso # (Auto) Seg Neutrophils % Seg Neuts % (Manual) Lymphocytes % (Manual) Seg Neutrophils # Seg Neutrophils # Man Lymphocytes # (Manual) D-Dimer ABG pH POC ABG pCO2 POC ABG pO2 ABG pO2 ABG HCO3 ABG O2 Saturation ABG Base Excess ABG Oxyhemoglobin ABG Sodium ABG Chloride ABG Glucose Oxyhemoglobin Carboxyhemoglobin Sodium Potassium Chloride Carbon Dioxide BUN Creatinine Glucose POC Glucose 244 H 299 H 140 H Hemoglobin A1c Magnesium Ferritin AST ALT Alkaline Phosphatase Lactate Dehydrogenase C-Reactive Protein Total Protein Albumin Arterial Blood Glucose Coronavirus (PCR) 05/22/21 05/22/21 05/22/21 08:45 11:54 16:15 WBC MCV MCH MCHC RDW Lymph % (Auto) [place] % (Auto) Eos % (Auto) Lymph # (Auto) [place] # (Auto) Eos # (Auto) Baso # (Auto) Seg Neutrophils % Seg Neuts % (Manual) Lymphocytes % (Manual) Seg Neutrophils # Seg Neutrophils # Man Lymphocytes # (Manual) D-Dimer ABG pH POC ABG pCO2 POC ABG pO2 ABG pO2 ABG HCO3 ABG O2 Saturation ABG Base Excess ABG Oxyhemoglobin ABG Sodium ABG Chloride ABG Glucose Oxyhemoglobin Carboxyhemoglobin Sodium Potassium Chloride Carbon Dioxide BUN Creatinine Glucose POC Glucose 133 H 265 H 221 H Hemoglobin A1c Magnesium Ferritin AST ALT Alkaline Phosphatase Lactate Dehydrogenase C-Reactive Protein Total Protein Albumin Arterial Blood Glucose Coronavirus (PCR) 05/22/21 05/23/21 05/23/21 21:43 08:20 09:50 WBC MCV MCH MCHC RDW Lymph % (Auto) [place] % (Auto) Eos % (Auto) Lymph # (Auto) [place] # (Auto) Eos # (Auto) Baso # (Auto) Seg Neutrophils % Seg Neuts % (Manual) Lymphocytes % (Manual) Seg Neutrophils # Seg Neutrophils # Man Lymphocytes # (Manual) D-Dimer 910.38 H ABG pH POC ABG pCO2 POC ABG pO2 ABG pO2 ABG HCO3 ABG O2 Saturation ABG Base Excess ABG Oxyhemoglobin ABG Sodium ABG Chloride ABG Glucose Oxyhemoglobin Carboxyhemoglobin Sodium Potassium Chloride Carbon Dioxide BUN Creatinine Glucose POC Glucose 262 H 140 H Hemoglobin A1c Magnesium Ferritin AST ALT Alkaline Phosphatase Lactate Dehydrogenase C-Reactive Protein Total Protein Albumin Arterial Blood Glucose Coronavirus (PCR) 05/23/21 05/23/21 05/23/21 09:50 09:50 10:52 WBC MCV MCH MCHC RDW Lymph % (Auto) [place] % (Auto) Eos % (Auto) Lymph # (Auto) [place] # (Auto) Eos # (Auto) Baso # (Auto) Seg Neutrophils % Seg Neuts % (Manual) Lymphocytes % (Manual) Seg Neutrophils # Seg Neutrophils # Man Lymphocytes # (Manual) D-Dimer ABG pH POC ABG pCO2 POC ABG pO2 ABG pO2 ABG HCO3 ABG O2 Saturation ABG Base Excess ABG Oxyhemoglobin ABG Sodium ABG Chloride ABG Glucose Oxyhemoglobin Carboxyhemoglobin Sodium Potassium Chloride Carbon Dioxide BUN Creatinine Glucose POC Glucose 241 H Hemoglobin A1c Magnesium Ferritin 244.9 H AST ALT Alkaline Phosphatase Lactate Dehydrogenase 584 H C-Reactive Protein Total Protein Albumin Arterial Blood Glucose Coronavirus (PCR) 05/23/21 05/23/21 05/24/21 17:24 21:52 07:44 WBC MCV MCH MCHC RDW Lymph % (Auto) [place] % (Auto) Eos % (Auto) Lymph # (Auto) [place] # (Auto) Eos # (Auto) Baso # (Auto) Seg Neutrophils % Seg Neuts % (Manual) Lymphocytes % (Manual) Seg Neutrophils # Seg Neutrophils # Man Lymphocytes # (Manual) D-Dimer ABG pH POC ABG pCO2 POC ABG pO2 ABG pO2 ABG HCO3 ABG O2 Saturation ABG Base Excess ABG Oxyhemoglobin ABG Sodium ABG Chloride ABG Glucose Oxyhemoglobin Carboxyhemoglobin Sodium Potassium Chloride Carbon Dioxide BUN Creatinine Glucose POC Glucose 197 H 289 H 161 H Hemoglobin A1c Magnesium Ferritin AST ALT Alkaline Phosphatase Lactate Dehydrogenase C-Reactive Protein Total Protein Albumin Arterial Blood Glucose Coronavirus (PCR) 05/24/21 05/24/21 05/24/21 11:17 17:51 21:26 WBC MCV MCH MCHC RDW Lymph % (Auto) [place] % (Auto) Eos % (Auto) Lymph # (Auto) [place] # (Auto) Eos # (Auto) Baso # (Auto) Seg Neutrophils % Seg Neuts % (Manual) Lymphocytes % (Manual) Seg Neutrophils # Seg Neutrophils # Man Lymphocytes # (Manual) D-Dimer ABG pH POC ABG pCO2 POC ABG pO2 ABG pO2 ABG HCO3 ABG O2 Saturation ABG Base Excess ABG Oxyhemoglobin ABG Sodium ABG Chloride ABG Glucose Oxyhemoglobin Carboxyhemoglobin Sodium Potassium Chloride Carbon Dioxide BUN Creatinine Glucose POC Glucose 308 H 175 H 198 H Hemoglobin A1c Magnesium Ferritin AST ALT Alkaline Phosphatase Lactate Dehydrogenase C-Reactive Protein Total Protein Albumin Arterial Blood Glucose Coronavirus (PCR) 05/25/21 05/25/21 05/25/21 08:14 11:13 17:13 WBC MCV MCH MCHC RDW Lymph % (Auto) [place] % (Auto) Eos % (Auto) Lymph # (Auto) [place] # (Auto) Eos # (Auto) Baso # (Auto) Seg Neutrophils % Seg Neuts % (Manual) Lymphocytes % (Manual) Seg Neutrophils # Seg Neutrophils # Man Lymphocytes # (Manual) D-Dimer ABG pH POC ABG pCO2 POC ABG pO2 ABG pO2 ABG HCO3 ABG O2 Saturation ABG Base Excess ABG Oxyhemoglobin ABG Sodium ABG Chloride ABG Glucose Oxyhemoglobin Carboxyhemoglobin Sodium Potassium Chloride Carbon Dioxide BUN Creatinine Glucose POC Glucose 203 H 339 H 235 H Hemoglobin A1c Magnesium Ferritin AST ALT Alkaline Phosphatase Lactate Dehydrogenase C-Reactive Protein Total Protein Albumin Arterial Blood Glucose Coronavirus (PCR) 05/25/21 05/26/21 05/26/21 21:03 07:33 11:19 WBC MCV MCH MCHC RDW Lymph % (Auto) [place] % (Auto) Eos % (Auto) Lymph # (Auto) [place] # (Auto) Eos # (Auto) Baso # (Auto) Seg Neutrophils % Seg Neuts % (Manual) Lymphocytes % (Manual) Seg Neutrophils # Seg Neutrophils # Man Lymphocytes # (Manual) D-Dimer ABG pH POC ABG pCO2 POC ABG pO2 ABG pO2 ABG HCO3 ABG O2 Saturation ABG Base Excess ABG Oxyhemoglobin ABG Sodium ABG Chloride ABG Glucose Oxyhemoglobin Carboxyhemoglobin Sodium Potassium Chloride Carbon Dioxide BUN Creatinine Glucose POC Glucose 263 H 156 H 288 H Hemoglobin A1c Magnesium Ferritin AST ALT Alkaline Phosphatase Lactate Dehydrogenase C-Reactive Protein Total Protein Albumin Arterial Blood Glucose Coronavirus (PCR) 05/26/21 05/26/21 05/27/21 16:26 20:55 07:38 WBC MCV MCH MCHC RDW Lymph % (Auto) [place] % (Auto) Eos % (Auto) Lymph # (Auto) [place] # (Auto) Eos # (Auto) Baso # (Auto) Seg Neutrophils % Seg Neuts % (Manual) Lymphocytes % (Manual) Seg Neutrophils # Seg Neutrophils # Man Lymphocytes # (Manual) D-Dimer ABG pH POC ABG pCO2 POC ABG pO2 ABG pO2 ABG HCO3 ABG O2 Saturation ABG Base Excess ABG Oxyhemoglobin ABG Sodium ABG Chloride ABG Glucose Oxyhemoglobin Carboxyhemoglobin Sodium Potassium Chloride Carbon Dioxide BUN Creatinine Glucose POC Glucose 286 H 293 H 115 H Hemoglobin A1c Magnesium Ferritin AST ALT Alkaline Phosphatase Lactate Dehydrogenase C-Reactive Protein Total Protein Albumin Arterial Blood Glucose Coronavirus (PCR) 05/27/21 05/27/21 05/27/21 11:46 15:58 21:02 WBC MCV MCH MCHC RDW Lymph % (Auto) [place] % (Auto) Eos % (Auto) Lymph # (Auto) [place] # (Auto) Eos # (Auto) Baso # (Auto) Seg Neutrophils % Seg Neuts % (Manual) Lymphocytes % (Manual) Seg Neutrophils # Seg Neutrophils # Man Lymphocytes # (Manual) D-Dimer ABG pH POC ABG pCO2 POC ABG pO2 ABG pO2 ABG HCO3 ABG O2 Saturation ABG Base Excess ABG Oxyhemoglobin ABG Sodium ABG Chloride ABG Glucose Oxyhemoglobin Carboxyhemoglobin Sodium Potassium Chloride Carbon Dioxide BUN Creatinine Glucose POC Glucose 260 H 318 H 246 H Hemoglobin A1c Magnesium Ferritin AST ALT Alkaline Phosphatase Lactate Dehydrogenase C-Reactive Protein Total Protein Albumin Arterial Blood Glucose Coronavirus (PCR) 05/28/21 05/28/21 05/28/21 07:34 11:31 16:36 WBC MCV MCH MCHC RDW Lymph % (Auto) [place] % (Auto) Eos % (Auto) Lymph # (Auto) [place] # (Auto) Eos # (Auto) Baso # (Auto) Seg Neutrophils % Seg Neuts % (Manual) Lymphocytes % (Manual) Seg Neutrophils # Seg Neutrophils # Man Lymphocytes # (Manual) D-Dimer ABG pH POC ABG pCO2 POC ABG pO2 ABG pO2 ABG HCO3 ABG O2 Saturation ABG Base Excess ABG Oxyhemoglobin ABG Sodium ABG Chloride ABG Glucose Oxyhemoglobin Carboxyhemoglobin Sodium Potassium Chloride Carbon Dioxide BUN Creatinine Glucose POC Glucose 185 H 297 H 183 H Hemoglobin A1c Magnesium Ferritin AST ALT Alkaline Phosphatase Lactate Dehydrogenase C-Reactive Protein Total Protein Albumin Arterial Blood Glucose Coronavirus (PCR) 05/28/21 05/29/21 05/29/21 21:19 07:34 11:19 WBC MCV MCH MCHC RDW Lymph % (Auto) [place] % (Auto) Eos % (Auto) Lymph # (Auto) [place] # (Auto) Eos # (Auto) Baso # (Auto) Seg Neutrophils % Seg Neuts % (Manual) Lymphocytes % (Manual) Seg Neutrophils # Seg Neutrophils # Man Lymphocytes # (Manual) D-Dimer ABG pH POC ABG pCO2 POC ABG pO2 ABG pO2 ABG HCO3 ABG O2 Saturation ABG Base Excess ABG Oxyhemoglobin ABG Sodium ABG Chloride ABG Glucose Oxyhemoglobin Carboxyhemoglobin Sodium Potassium Chloride Carbon Dioxide BUN Creatinine Glucose POC Glucose 274 H 139 H 293 H Hemoglobin A1c Magnesium Ferritin AST ALT Alkaline Phosphatase Lactate Dehydrogenase C-Reactive Protein Total Protein Albumin Arterial Blood Glucose Coronavirus (PCR) 05/29/21 05/29/21 05/30/21 16:36 22:44 05:55 WBC MCV MCH MCHC RDW 21.3 H Lymph % (Auto) 8.0 L [place] % (Auto) Eos % (Auto) Lymph # (Auto) 0.6 L [place] # (Auto) Eos # (Auto) Baso # (Auto) Seg Neutrophils % 88.6 H Seg Neuts % (Manual) Lymphocytes % (Manual) Seg Neutrophils # Seg Neutrophils # Man Lymphocytes # (Manual) D-Dimer ABG pH POC ABG pCO2 POC ABG pO2 ABG pO2 ABG HCO3 ABG O2 Saturation ABG Base Excess ABG Oxyhemoglobin ABG Sodium ABG Chloride ABG Glucose Oxyhemoglobin Carboxyhemoglobin Sodium Potassium Chloride Carbon Dioxide BUN Creatinine Glucose POC Glucose 299 H 160 H Hemoglobin A1c Magnesium Ferritin AST ALT Alkaline Phosphatase Lactate Dehydrogenase C-Reactive Protein Total Protein Albumin Arterial Blood Glucose Coronavirus (PCR) 05/30/21 05/30/21 05/30/21 05:55 08:04 11:13 WBC MCV MCH MCHC RDW Lymph % (Auto) [place] % (Auto) Eos % (Auto) Lymph # (Auto) [place] # (Auto) Eos # (Auto) Baso # (Auto) Seg Neutrophils % Seg Neuts % (Manual) Lymphocytes % (Manual) Seg Neutrophils # Seg Neutrophils # Man Lymphocytes # (Manual) D-Dimer ABG pH POC ABG pCO2 POC ABG pO2 ABG pO2 ABG HCO3 ABG O2 Saturation ABG Base Excess ABG Oxyhemoglobin ABG Sodium ABG Chloride ABG Glucose Oxyhemoglobin Carboxyhemoglobin Sodium Potassium Chloride Carbon Dioxide BUN 19 H Creatinine 0.2 L Glucose 209 H POC Glucose 157 H 275 H Hemoglobin A1c Magnesium Ferritin AST ALT Alkaline Phosphatase Lactate Dehydrogenase C-Reactive Protein Total Protein Albumin Arterial Blood Glucose Coronavirus (PCR) 05/30/21 05/30/21 05/31/21 17:08 22:12 07:36 WBC MCV MCH MCHC RDW Lymph % (Auto) [place] % (Auto) Eos % (Auto) Lymph # (Auto) [place] # (Auto) Eos # (Auto) Baso # (Auto) Seg Neutrophils % Seg Neuts % (Manual) Lymphocytes % (Manual) Seg Neutrophils # Seg Neutrophils # Man Lymphocytes # (Manual) D-Dimer ABG pH POC ABG pCO2 POC ABG pO2 ABG pO2 ABG HCO3 ABG O2 Saturation ABG Base Excess ABG Oxyhemoglobin ABG Sodium ABG Chloride ABG Glucose Oxyhemoglobin Carboxyhemoglobin Sodium Potassium Chloride Carbon Dioxide BUN Creatinine Glucose POC Glucose 154 H 275 H 138 H Hemoglobin A1c Magnesium Ferritin AST ALT Alkaline Phosphatase Lactate Dehydrogenase C-Reactive Protein Total Protein Albumin Arterial Blood Glucose Coronavirus (PCR) 05/31/21 05/31/21 05/31/21 11:17 16:55 21:25 WBC MCV MCH MCHC RDW Lymph % (Auto) [place] % (Auto) Eos % (Auto) Lymph # (Auto) [place] # (Auto) Eos # (Auto) Baso # (Auto) Seg Neutrophils % Seg Neuts % (Manual) Lymphocytes % (Manual) Seg Neutrophils # Seg Neutrophils # Man Lymphocytes # (Manual) D-Dimer ABG pH POC ABG pCO2 POC ABG pO2 ABG pO2 ABG HCO3 ABG O2 Saturation ABG Base Excess ABG Oxyhemoglobin ABG Sodium ABG Chloride ABG Glucose Oxyhemoglobin Carboxyhemoglobin Sodium Potassium Chloride Carbon Dioxide BUN Creatinine Glucose POC Glucose 258 H 215 H 318 H Hemoglobin A1c Magnesium Ferritin AST ALT Alkaline Phosphatase Lactate Dehydrogenase C-Reactive Protein Total Protein Albumin Arterial Blood Glucose Coronavirus (PCR) 06/01/21 06/01/21 06/01/21 07:23 11:38 16:52 WBC MCV MCH MCHC RDW Lymph % (Auto) [place] % (Auto) Eos % (Auto) Lymph # (Auto) [place] # (Auto) Eos # (Auto) Baso # (Auto) Seg Neutrophils % Seg Neuts % (Manual) Lymphocytes % (Manual) Seg Neutrophils # Seg Neutrophils # Man Lymphocytes # (Manual) D-Dimer ABG pH POC ABG pCO2 POC ABG pO2 ABG pO2 ABG HCO3 ABG O2 Saturation ABG Base Excess ABG Oxyhemoglobin ABG Sodium ABG Chloride ABG Glucose Oxyhemoglobin Carboxyhemoglobin Sodium Potassium Chloride Carbon Dioxide BUN Creatinine Glucose POC Glucose 157 H 259 H 150 H Hemoglobin A1c Magnesium Ferritin AST ALT Alkaline Phosphatase Lactate Dehydrogenase C-Reactive Protein Total Protein Albumin Arterial Blood Glucose Coronavirus (PCR) 06/01/21 06/02/21 06/02/21 23:16 05:34 05:34 WBC MCV MCH MCHC RDW 21.3 H Lymph % (Auto) 9.6 L [place] % (Auto) Eos % (Auto) Lymph # (Auto) 0.6 L [place] # (Auto) Eos # (Auto) Baso # (Auto) Seg Neutrophils % 86.2 H Seg Neuts % (Manual) Lymphocytes % (Manual) Seg Neutrophils # Seg Neutrophils # Man Lymphocytes # (Manual) D-Dimer ABG pH POC ABG pCO2 POC ABG pO2 ABG pO2 ABG HCO3 ABG O2 Saturation ABG Base Excess ABG Oxyhemoglobin ABG Sodium ABG Chloride ABG Glucose Oxyhemoglobin Carboxyhemoglobin Sodium 136 L Potassium Chloride Carbon Dioxide BUN Creatinine 0.2 L Glucose 186 H POC Glucose 247 H Hemoglobin A1c Magnesium Ferritin AST ALT 69 H Alkaline Phosphatase Lactate Dehydrogenase C-Reactive Protein Total Protein 6.1 L Albumin 3.2 L Arterial Blood Glucose Coronavirus (PCR) 06/02/21 06/02/21 06/02/21 11:25 18:23 21:32 WBC MCV MCH MCHC RDW Lymph % (Auto) [place] % (Auto) Eos % (Auto) Lymph # (Auto) [place] # (Auto) Eos # (Auto) Baso # (Auto) Seg Neutrophils % Seg Neuts % (Manual) Lymphocytes % (Manual) Seg Neutrophils # Seg Neutrophils # Man Lymphocytes # (Manual) D-Dimer ABG pH POC ABG pCO2 POC ABG pO2 ABG pO2 ABG HCO3 ABG O2 Saturation ABG Base Excess ABG Oxyhemoglobin ABG Sodium ABG Chloride ABG Glucose Oxyhemoglobin Carboxyhemoglobin Sodium Potassium Chloride Carbon Dioxide BUN Creatinine Glucose POC Glucose 157 H 299 H 246 H Hemoglobin A1c Magnesium Ferritin AST ALT Alkaline Phosphatase Lactate Dehydrogenase C-Reactive Protein Total Protein Albumin Arterial Blood Glucose Coronavirus (PCR) 06/03/21 06/03/21 06/03/21 08:12 12:21 17:31 WBC MCV MCH MCHC RDW Lymph % (Auto) [place] % (Auto) Eos % (Auto) Lymph # (Auto) [place] # (Auto) Eos # (Auto) Baso # (Auto) Seg Neutrophils % Seg Neuts % (Manual) Lymphocytes % (Manual) Seg Neutrophils # Seg Neutrophils # Man Lymphocytes # (Manual) D-Dimer ABG pH POC ABG pCO2 POC ABG pO2 ABG pO2 ABG HCO3 ABG O2 Saturation ABG Base Excess ABG Oxyhemoglobin ABG Sodium ABG Chloride ABG Glucose Oxyhemoglobin Carboxyhemoglobin Sodium Potassium Chloride Carbon Dioxide BUN Creatinine Glucose POC Glucose 153 H 302 H 252 H Hemoglobin A1c Magnesium Ferritin AST ALT Alkaline Phosphatase Lactate Dehydrogenase C-Reactive Protein Total Protein Albumin Arterial Blood Glucose Coronavirus (PCR) 06/03/21 06/04/21 06/04/21 22:08 11:12 16:01 WBC MCV MCH MCHC RDW Lymph % (Auto) [place] % (Auto) Eos % (Auto) Lymph # (Auto) [place] # (Auto) Eos # (Auto) Baso # (Auto) Seg Neutrophils % Seg Neuts % (Manual) Lymphocytes % (Manual) Seg Neutrophils # Seg Neutrophils # Man Lymphocytes # (Manual) D-Dimer ABG pH POC ABG pCO2 POC ABG pO2 ABG pO2 ABG HCO3 ABG O2 Saturation ABG Base Excess ABG Oxyhemoglobin ABG Sodium ABG Chloride ABG Glucose Oxyhemoglobin Carboxyhemoglobin Sodium Potassium Chloride Carbon Dioxide BUN Creatinine Glucose POC Glucose 224 H 259 H 238 H Hemoglobin A1c Magnesium Ferritin AST ALT Alkaline Phosphatase Lactate Dehydrogenase C-Reactive Protein Total Protein Albumin Arterial Blood Glucose Coronavirus (PCR) 06/04/21 06/05/21 06/05/21 21:26 05:26 05:26 WBC MCV MCH MCHC RDW Lymph % (Auto) [place] % (Auto) Eos % (Auto) Lymph # (Auto) [place] # (Auto) Eos # (Auto) Baso # (Auto) Seg Neutrophils % Seg Neuts % (Manual) Lymphocytes % (Manual) Seg Neutrophils # Seg Neutrophils # Man Lymphocytes # (Manual) D-Dimer 488.49 H ABG pH POC ABG pCO2 POC ABG pO2 ABG pO2 ABG HCO3 ABG O2 Saturation ABG Base Excess ABG Oxyhemoglobin ABG Sodium ABG Chloride ABG Glucose Oxyhemoglobin Carboxyhemoglobin Sodium Potassium Chloride Carbon Dioxide BUN Creatinine 0.2 L Glucose 198 H POC Glucose 257 H Hemoglobin A1c Magnesium Ferritin AST ALT Alkaline Phosphatase Lactate Dehydrogenase 475 H C-Reactive Protein Total Protein Albumin Arterial Blood Glucose Coronavirus (PCR) 06/05/21 06/05/21 06/05/21 07:20 08:30 11:00 WBC MCV MCH MCHC RDW Lymph % (Auto) [place] % (Auto) Eos % (Auto) Lymph # (Auto) [place] # (Auto) Eos # (Auto) Baso # (Auto) Seg Neutrophils % Seg Neuts % (Manual) Lymphocytes % (Manual) Seg Neutrophils # Seg Neutrophils # Man Lymphocytes # (Manual) D-Dimer ABG pH POC ABG pCO2 POC ABG pO2 ABG pO2 ABG HCO3 ABG O2 Saturation ABG Base Excess ABG Oxyhemoglobin ABG Sodium ABG Chloride ABG Glucose Oxyhemoglobin Carboxyhemoglobin Sodium Potassium Chloride Carbon Dioxide BUN Creatinine Glucose POC Glucose 146 H 246 H Hemoglobin A1c Magnesium Ferritin AST ALT Alkaline Phosphatase Lactate Dehydrogenase C-Reactive Protein Total Protein Albumin Arterial Blood Glucose Coronavirus (PCR) Positive A 06/05/21 06/05/21 06/06/21 16:50 22:30 07:57 WBC MCV MCH MCHC RDW Lymph % (Auto) [place] % (Auto) Eos % (Auto) Lymph # (Auto) [place] # (Auto) Eos # (Auto) Baso # (Auto) Seg Neutrophils % Seg Neuts % (Manual) Lymphocytes % (Manual) Seg Neutrophils # Seg Neutrophils # Man Lymphocytes # (Manual) D-Dimer ABG pH POC ABG pCO2 POC ABG pO2 ABG pO2 ABG HCO3 ABG O2 Saturation ABG Base Excess ABG Oxyhemoglobin ABG Sodium ABG Chloride ABG Glucose Oxyhemoglobin Carboxyhemoglobin Sodium Potassium Chloride Carbon Dioxide BUN Creatinine Glucose POC Glucose 240 H 174 H 120 H Hemoglobin A1c Magnesium Ferritin AST ALT Alkaline Phosphatase Lactate Dehydrogenase C-Reactive Protein Total Protein Albumin Arterial Blood Glucose Coronavirus (PCR) 06/06/21 06/06/21 06/06/21 11:14 16:50 21:11 WBC MCV MCH MCHC RDW Lymph % (Auto) [place] % (Auto) Eos % (Auto) Lymph # (Auto) [place] # (Auto) Eos # (Auto) Baso # (Auto) Seg Neutrophils % Seg Neuts % (Manual) Lymphocytes % (Manual) Seg Neutrophils # Seg Neutrophils # Man Lymphocytes # (Manual) D-Dimer ABG pH POC ABG pCO2 POC ABG pO2 ABG pO2 ABG HCO3 ABG O2 Saturation ABG Base Excess ABG Oxyhemoglobin ABG Sodium ABG Chloride ABG Glucose Oxyhemoglobin Carboxyhemoglobin Sodium Potassium Chloride Carbon Dioxide BUN Creatinine Glucose POC Glucose 267 H 218 H 124 H Hemoglobin A1c Magnesium Ferritin AST ALT Alkaline Phosphatase Lactate Dehydrogenase C-Reactive Protein Total Protein Albumin Arterial Blood Glucose Coronavirus (PCR) 06/07/21 06/07/21 06/08/21 11:58 15:59 07:59 WBC MCV MCH MCHC RDW Lymph % (Auto) [place] % (Auto) Eos % (Auto) Lymph # (Auto) [place] # (Auto) Eos # (Auto) Baso # (Auto) Seg Neutrophils % Seg Neuts % (Manual) Lymphocytes % (Manual) Seg Neutrophils # Seg Neutrophils # Man Lymphocytes # (Manual) D-Dimer ABG pH POC ABG pCO2 POC ABG pO2 ABG pO2 ABG HCO3 ABG O2 Saturation ABG Base Excess ABG Oxyhemoglobin ABG Sodium ABG Chloride ABG Glucose Oxyhemoglobin Carboxyhemoglobin Sodium Potassium Chloride Carbon Dioxide BUN Creatinine Glucose POC Glucose 219 H 208 H 192 H Hemoglobin A1c Magnesium Ferritin AST ALT Alkaline Phosphatase Lactate Dehydrogenase C-Reactive Protein Total Protein Albumin Arterial Blood Glucose Coronavirus (PCR) 06/08/21 06/08/21 06/09/21 11:26 23:28 07:33 WBC MCV MCH MCHC RDW Lymph % (Auto) [place] % (Auto) Eos % (Auto) Lymph # (Auto) [place] # (Auto) Eos # (Auto) Baso # (Auto) Seg Neutrophils % Seg Neuts % (Manual) Lymphocytes % (Manual) Seg Neutrophils # Seg Neutrophils # Man Lymphocytes # (Manual) D-Dimer ABG pH POC ABG pCO2 POC ABG pO2 ABG pO2 ABG HCO3 ABG O2 Saturation ABG Base Excess ABG Oxyhemoglobin ABG Sodium ABG Chloride ABG Glucose Oxyhemoglobin Carboxyhemoglobin Sodium Potassium Chloride Carbon Dioxide BUN Creatinine Glucose POC Glucose 307 H 138 H 145 H Hemoglobin A1c Magnesium Ferritin AST ALT Alkaline Phosphatase Lactate Dehydrogenase C-Reactive Protein Total Protein Albumin Arterial Blood Glucose Coronavirus (PCR) 06/09/21 06/09/21 06/09/21 11:01 15:47 21:43 WBC MCV MCH MCHC RDW Lymph % (Auto) [place] % (Auto) Eos % (Auto) Lymph # (Auto) [place] # (Auto) Eos # (Auto) Baso # (Auto) Seg Neutrophils % Seg Neuts % (Manual) Lymphocytes % (Manual) Seg Neutrophils # Seg Neutrophils # Man Lymphocytes # (Manual) D-Dimer ABG pH POC ABG pCO2 POC ABG pO2 ABG pO2 ABG HCO3 ABG O2 Saturation ABG Base Excess ABG Oxyhemoglobin ABG Sodium ABG Chloride ABG Glucose Oxyhemoglobin Carboxyhemoglobin Sodium Potassium Chloride Carbon Dioxide BUN Creatinine Glucose POC Glucose 266 H 305 H 223 H Hemoglobin A1c Magnesium Ferritin AST ALT Alkaline Phosphatase Lactate Dehydrogenase C-Reactive Protein Total Protein Albumin Arterial Blood Glucose Coronavirus (PCR) 06/10/21 06/10/21 06/10/21 08:27 12:10 17:45 WBC MCV MCH MCHC RDW Lymph % (Auto) [place] % (Auto) Eos % (Auto) Lymph # (Auto) [place] # (Auto) Eos # (Auto) Baso # (Auto) Seg Neutrophils % Seg Neuts % (Manual) Lymphocytes % (Manual) Seg Neutrophils # Seg Neutrophils # Man Lymphocytes # (Manual) D-Dimer ABG pH POC ABG pCO2 POC ABG pO2 ABG pO2 ABG HCO3 ABG O2 Saturation ABG Base Excess ABG Oxyhemoglobin ABG Sodium ABG Chloride ABG Glucose Oxyhemoglobin Carboxyhemoglobin Sodium Potassium Chloride Carbon Dioxide BUN Creatinine Glucose POC Glucose 174 H 306 H 210 H Hemoglobin A1c Magnesium Ferritin AST ALT Alkaline Phosphatase Lactate Dehydrogenase C-Reactive Protein Total Protein Albumin Arterial Blood Glucose Coronavirus (PCR) 06/10/21 06/11/21 06/11/21 21:45 09:38 09:38 WBC MCV MCH MCHC RDW 20.9 H Lymph % (Auto) [place] % (Auto) Eos % (Auto) Lymph # (Auto) [place] # (Auto) Eos # (Auto) Baso # (Auto) Seg Neutrophils % Seg Neuts % (Manual) Lymphocytes % (Manual) Seg Neutrophils # Seg Neutrophils # Man Lymphocytes # (Manual) D-Dimer ABG pH POC ABG pCO2 POC ABG pO2 ABG pO2 ABG HCO3 ABG O2 Saturation ABG Base Excess ABG Oxyhemoglobin ABG Sodium ABG Chloride ABG Glucose Oxyhemoglobin Carboxyhemoglobin Sodium 135 L Potassium Chloride 90.8 L Carbon Dioxide 36 H BUN 29 H Creatinine 0.2 L Glucose 258 H POC Glucose 262 H Hemoglobin A1c Magnesium Ferritin AST ALT Alkaline Phosphatase Lactate Dehydrogenase C-Reactive Protein Total Protein Albumin Arterial Blood Glucose Coronavirus (PCR) 06/11/21 06/11/21 06/11/21 11:20 15:49 22:57 WBC MCV MCH MCHC RDW Lymph % (Auto) [place] % (Auto) Eos % (Auto) Lymph # (Auto) [place] # (Auto) Eos # (Auto) Baso # (Auto) Seg Neutrophils % Seg Neuts % (Manual) Lymphocytes % (Manual) Seg Neutrophils # Seg Neutrophils # Man Lymphocytes # (Manual) D-Dimer ABG pH POC ABG pCO2 POC ABG pO2 ABG pO2 ABG HCO3 ABG O2 Saturation ABG Base Excess ABG Oxyhemoglobin ABG Sodium ABG Chloride ABG Glucose Oxyhemoglobin Carboxyhemoglobin Sodium Potassium Chloride Carbon Dioxide BUN Creatinine Glucose POC Glucose 269 H 206 H 211 H Hemoglobin A1c Magnesium Ferritin AST ALT Alkaline Phosphatase Lactate Dehydrogenase C-Reactive Protein Total Protein Albumin Arterial Blood Glucose Coronavirus (PCR) 06/12/21 06/12/21 06/12/21 08:07 11:24 18:08 WBC MCV MCH MCHC RDW Lymph % (Auto) [place] % (Auto) Eos % (Auto) Lymph # (Auto) [place] # (Auto) Eos # (Auto) Baso # (Auto) Seg Neutrophils % Seg Neuts % (Manual) Lymphocytes % (Manual) Seg Neutrophils # Seg Neutrophils # Man Lymphocytes # (Manual) D-Dimer ABG pH POC ABG pCO2 POC ABG pO2 ABG pO2 ABG HCO3 ABG O2 Saturation ABG Base Excess ABG Oxyhemoglobin ABG Sodium ABG Chloride ABG Glucose Oxyhemoglobin Carboxyhemoglobin Sodium Potassium Chloride Carbon Dioxide BUN Creatinine Glucose POC Glucose 149 H 270 H 166 H Hemoglobin A1c Magnesium Ferritin AST ALT Alkaline Phosphatase Lactate Dehydrogenase C-Reactive Protein Total Protein Albumin Arterial Blood Glucose Coronavirus (PCR) 06/12/21 06/13/21 06/13/21 20:22 07:50 11:18 WBC MCV MCH MCHC RDW Lymph % (Auto) [place] % (Auto) Eos % (Auto) Lymph # (Auto) [place] # (Auto) Eos # (Auto) Baso # (Auto) Seg Neutrophils % Seg Neuts % (Manual) Lymphocytes % (Manual) Seg Neutrophils # Seg Neutrophils # Man Lymphocytes # (Manual) D-Dimer ABG pH POC ABG pCO2 POC ABG pO2 ABG pO2 ABG HCO3 ABG O2 Saturation ABG Base Excess ABG Oxyhemoglobin ABG Sodium ABG Chloride ABG Glucose Oxyhemoglobin Carboxyhemoglobin Sodium Potassium Chloride Carbon Dioxide BUN Creatinine Glucose POC Glucose 155 H 163 H 293 H Hemoglobin A1c Magnesium Ferritin AST ALT Alkaline Phosphatase Lactate Dehydrogenase C-Reactive Protein Total Protein Albumin Arterial Blood Glucose Coronavirus (PCR) 06/13/21 06/13/21 06/14/21 16:41 21:00 07:41 WBC MCV MCH MCHC RDW Lymph % (Auto) [place] % (Auto) Eos % (Auto) Lymph # (Auto) [place] # (Auto) Eos # (Auto) Baso # (Auto) Seg Neutrophils % Seg Neuts % (Manual) Lymphocytes % (Manual) Seg Neutrophils # Seg Neutrophils # Man Lymphocytes # (Manual) D-Dimer ABG pH POC ABG pCO2 POC ABG pO2 ABG pO2 ABG HCO3 ABG O2 Saturation ABG Base Excess ABG Oxyhemoglobin ABG Sodium ABG Chloride ABG Glucose Oxyhemoglobin Carboxyhemoglobin Sodium Potassium Chloride Carbon Dioxide BUN Creatinine Glucose POC Glucose 232 H 183 H 52 L Hemoglobin A1c Magnesium Ferritin AST ALT Alkaline Phosphatase Lactate Dehydrogenase C-Reactive Protein Total Protein Albumin Arterial Blood Glucose Coronavirus (PCR) 06/14/21 06/14/21 06/14/21 11:44 17:44 21:44 WBC MCV MCH MCHC RDW Lymph % (Auto) [place] % (Auto) Eos % (Auto) Lymph # (Auto) [place] # (Auto) Eos # (Auto) Baso # (Auto) Seg Neutrophils % Seg Neuts % (Manual) Lymphocytes % (Manual) Seg Neutrophils # Seg Neutrophils # Man Lymphocytes # (Manual) D-Dimer ABG pH POC ABG pCO2 POC ABG pO2 ABG pO2 ABG HCO3 ABG O2 Saturation ABG Base Excess ABG Oxyhemoglobin ABG Sodium ABG Chloride ABG Glucose Oxyhemoglobin Carboxyhemoglobin Sodium Potassium Chloride Carbon Dioxide BUN Creatinine Glucose POC Glucose 205 H 293 H 288 H Hemoglobin A1c Magnesium Ferritin AST ALT Alkaline Phosphatase Lactate Dehydrogenase C-Reactive Protein Total Protein Albumin Arterial Blood Glucose Coronavirus (PCR) 06/15/21 06/15/21 06/15/21 08:00 08:00 11:40 WBC MCV MCH 33 H MCHC 35 H RDW 20.3 H Lymph % (Auto) [place] % (Auto) Eos % (Auto) Lymph # (Auto) [place] # (Auto) Eos # (Auto) Baso # (Auto) Seg Neutrophils % Seg Neuts % (Manual) Lymphocytes % (Manual) Seg Neutrophils # Seg Neutrophils # Man Lymphocytes # (Manual) D-Dimer ABG pH POC ABG pCO2 POC ABG pO2 ABG pO2 ABG HCO3 ABG O2 Saturation ABG Base Excess ABG Oxyhemoglobin ABG Sodium ABG Chloride ABG Glucose Oxyhemoglobin Carboxyhemoglobin Sodium Potassium 3.2 L Chloride 95.3 L Carbon Dioxide 32 H BUN 23 H Creatinine 0.2 L Glucose 103 H POC Glucose 204 H Hemoglobin A1c Magnesium Ferritin AST ALT Alkaline Phosphatase Lactate Dehydrogenase C-Reactive Protein Total Protein Albumin Arterial Blood Glucose Coronavirus (PCR) 06/15/21 06/15/21 06/16/21 16:17 22:00 11:43 WBC MCV MCH MCHC RDW Lymph % (Auto) [place] % (Auto) Eos % (Auto) Lymph # (Auto) [place] # (Auto) Eos # (Auto) Baso # (Auto) Seg Neutrophils % Seg Neuts % (Manual) Lymphocytes % (Manual) Seg Neutrophils # Seg Neutrophils # Man Lymphocytes # (Manual) D-Dimer ABG pH POC ABG pCO2 POC ABG pO2 ABG pO2 ABG HCO3 ABG O2 Saturation ABG Base Excess ABG Oxyhemoglobin ABG Sodium ABG Chloride ABG Glucose Oxyhemoglobin Carboxyhemoglobin Sodium Potassium Chloride Carbon Dioxide BUN Creatinine Glucose POC Glucose 295 H 233 H 201 H Hemoglobin A1c Magnesium Ferritin AST ALT Alkaline Phosphatase Lactate Dehydrogenase C-Reactive Protein Total Protein Albumin Arterial Blood Glucose Coronavirus (PCR) 06/16/21 06/16/21 06/17/21 17:21 21:27 07:12 WBC MCV MCH MCHC RDW Lymph % (Auto) [place] % (Auto) Eos % (Auto) Lymph # (Auto) [place] # (Auto) Eos # (Auto) Baso # (Auto) Seg Neutrophils % Seg Neuts % (Manual) Lymphocytes % (Manual) Seg Neutrophils # Seg Neutrophils # Man Lymphocytes # (Manual) D-Dimer ABG pH POC ABG pCO2 POC ABG pO2 ABG pO2 ABG HCO3 ABG O2 Saturation ABG Base Excess ABG Oxyhemoglobin ABG Sodium ABG Chloride ABG Glucose Oxyhemoglobin Carboxyhemoglobin Sodium Potassium Chloride Carbon Dioxide BUN Creatinine Glucose POC Glucose 299 H 290 H 67 L Hemoglobin A1c Magnesium Ferritin AST ALT Alkaline Phosphatase Lactate Dehydrogenase C-Reactive Protein Total Protein Albumin Arterial Blood Glucose Coronavirus (PCR) 06/17/21 06/17/21 06/17/21 11:53 17:02 22:25 WBC MCV MCH MCHC RDW Lymph % (Auto) [place] % (Auto) Eos % (Auto) Lymph # (Auto) [place] # (Auto) Eos # (Auto) Baso # (Auto) Seg Neutrophils % Seg Neuts % (Manual) Lymphocytes % (Manual) Seg Neutrophils # Seg Neutrophils # Man Lymphocytes # (Manual) D-Dimer ABG pH POC ABG pCO2 POC ABG pO2 ABG pO2 ABG HCO3 ABG O2 Saturation ABG Base Excess ABG Oxyhemoglobin ABG Sodium ABG Chloride ABG Glucose Oxyhemoglobin Carboxyhemoglobin Sodium Potassium Chloride Carbon Dioxide BUN Creatinine Glucose POC Glucose 199 H 362 H 235 H Hemoglobin A1c Magnesium Ferritin AST ALT Alkaline Phosphatase Lactate Dehydrogenase C-Reactive Protein Total Protein Albumin Arterial Blood Glucose Coronavirus (PCR) 06/18/21 06/18/21 06/18/21 08:00 11:48 16:40 WBC MCV MCH MCHC RDW Lymph % (Auto) [place] % (Auto) Eos % (Auto) Lymph # (Auto) [place] # (Auto) Eos # (Auto) Baso # (Auto) Seg Neutrophils % Seg Neuts % (Manual) Lymphocytes % (Manual) Seg Neutrophils # Seg Neutrophils # Man Lymphocytes # (Manual) D-Dimer ABG pH POC ABG pCO2 POC ABG pO2 ABG pO2 ABG HCO3 ABG O2 Saturation ABG Base Excess ABG Oxyhemoglobin ABG Sodium ABG Chloride ABG Glucose Oxyhemoglobin Carboxyhemoglobin Sodium Potassium Chloride Carbon Dioxide BUN Creatinine Glucose POC Glucose 62 L 211 H 305 H Hemoglobin A1c Magnesium Ferritin AST ALT Alkaline Phosphatase Lactate Dehydrogenase C-Reactive Protein Total Protein Albumin Arterial Blood Glucose Coronavirus (PCR) 06/18/21 06/19/21 06/19/21 21:26 07:27 11:32 WBC MCV MCH MCHC RDW Lymph % (Auto) [place] % (Auto) Eos % (Auto) Lymph # (Auto) [place] # (Auto) Eos # (Auto) Baso # (Auto) Seg Neutrophils % Seg Neuts % (Manual) Lymphocytes % (Manual) Seg Neutrophils # Seg Neutrophils # Man Lymphocytes # (Manual) D-Dimer ABG pH POC ABG pCO2 POC ABG pO2 ABG pO2 ABG HCO3 ABG O2 Saturation ABG Base Excess ABG Oxyhemoglobin ABG Sodium ABG Chloride ABG Glucose Oxyhemoglobin Carboxyhemoglobin Sodium Potassium Chloride Carbon Dioxide BUN Creatinine Glucose POC Glucose 149 H 60 L 208 H Hemoglobin A1c Magnesium Ferritin AST ALT Alkaline Phosphatase Lactate Dehydrogenase C-Reactive Protein Total Protein Albumin Arterial Blood Glucose Coronavirus (PCR) 06/19/21 06/19/21 06/20/21 16:06 22:28 07:48 WBC MCV MCH MCHC RDW Lymph % (Auto) [place] % (Auto) Eos % (Auto) Lymph # (Auto) [place] # (Auto) Eos # (Auto) Baso # (Auto) Seg Neutrophils % Seg Neuts % (Manual) Lymphocytes % (Manual) Seg Neutrophils # Seg Neutrophils # Man Lymphocytes # (Manual) D-Dimer ABG pH POC ABG pCO2 POC ABG pO2 ABG pO2 ABG HCO3 ABG O2 Saturation ABG Base Excess ABG Oxyhemoglobin ABG Sodium ABG Chloride ABG Glucose Oxyhemoglobin Carboxyhemoglobin Sodium Potassium Chloride Carbon Dioxide BUN Creatinine Glucose POC Glucose 266 H 166 H 58 L Hemoglobin A1c Magnesium Ferritin AST ALT Alkaline Phosphatase Lactate Dehydrogenase C-Reactive Protein Total Protein Albumin Arterial Blood Glucose Coronavirus (PCR) 06/20/21 06/20/21 06/20/21 09:09 11:04 16:01 WBC MCV MCH MCHC RDW Lymph % (Auto) [place] % (Auto) Eos % (Auto) Lymph # (Auto) [place] # (Auto) Eos # (Auto) Baso # (Auto) Seg Neutrophils % Seg Neuts % (Manual) Lymphocytes % (Manual) Seg Neutrophils # Seg Neutrophils # Man Lymphocytes # (Manual) D-Dimer ABG pH POC ABG pCO2 POC ABG pO2 ABG pO2 ABG HCO3 ABG O2 Saturation ABG Base Excess ABG Oxyhemoglobin ABG Sodium ABG Chloride ABG Glucose Oxyhemoglobin Carboxyhemoglobin Sodium Potassium Chloride Carbon Dioxide BUN Creatinine Glucose POC Glucose 146 H 225 H 330 H Hemoglobin A1c Magnesium Ferritin AST ALT Alkaline Phosphatase Lactate Dehydrogenase C-Reactive Protein Total Protein Albumin Arterial Blood Glucose Coronavirus (PCR) 06/20/21 06/21/21 06/21/21 20:46 06:45 06:45 WBC MCV MCH MCHC RDW 20.0 H Lymph % (Auto) [place] % (Auto) Eos % (Auto) Lymph # (Auto) [place] # (Auto) Eos # (Auto) Baso # (Auto) Seg Neutrophils % Seg Neuts % (Manual) Lymphocytes % (Manual) Seg Neutrophils # Seg Neutrophils # Man Lymphocytes # (Manual) D-Dimer ABG pH POC ABG pCO2 POC ABG pO2 ABG pO2 ABG HCO3 ABG O2 Saturation ABG Base Excess ABG Oxyhemoglobin ABG Sodium ABG Chloride ABG Glucose Oxyhemoglobin Carboxyhemoglobin Sodium Potassium 2.9 L* Chloride 95.0 L Carbon Dioxide 31 H BUN 23 H Creatinine 0.2 L Glucose 45 L POC Glucose 215 H Hemoglobin A1c Magnesium Ferritin AST ALT Alkaline Phosphatase Lactate Dehydrogenase C-Reactive Protein Total Protein Albumin Arterial Blood Glucose Coronavirus (PCR) 06/21/21 06/21/21 06/21/21 07:38 09:06 12:40 WBC MCV MCH MCHC RDW Lymph % (Auto) [place] % (Auto) Eos % (Auto) Lymph # (Auto) [place] # (Auto) Eos # (Auto) Baso # (Auto) Seg Neutrophils % Seg Neuts % (Manual) Lymphocytes % (Manual) Seg Neutrophils # Seg Neutrophils # Man Lymphocytes # (Manual) D-Dimer ABG pH POC ABG pCO2 POC ABG pO2 ABG pO2 ABG HCO3 ABG O2 Saturation ABG Base Excess ABG Oxyhemoglobin ABG Sodium ABG Chloride ABG Glucose Oxyhemoglobin Carboxyhemoglobin Sodium Potassium Chloride Carbon Dioxide BUN Creatinine Glucose POC Glucose 50 L 196 H 205 H Hemoglobin A1c Magnesium Ferritin AST ALT Alkaline Phosphatase Lactate Dehydrogenase C-Reactive Protein Total Protein Albumin Arterial Blood Glucose Coronavirus (PCR) 06/21/21 06/22/21 06/22/21 21:36 06:25 07:15 WBC MCV MCH MCHC RDW Lymph % (Auto) [place] % (Auto) Eos % (Auto) Lymph # (Auto) [place] # (Auto) Eos # (Auto) Baso # (Auto) Seg Neutrophils % Seg Neuts % (Manual) Lymphocytes % (Manual) Seg Neutrophils # Seg Neutrophils # Man Lymphocytes # (Manual) D-Dimer ABG pH POC ABG pCO2 POC ABG pO2 ABG pO2 ABG HCO3 ABG O2 Saturation ABG Base Excess ABG Oxyhemoglobin ABG Sodium ABG Chloride ABG Glucose Oxyhemoglobin Carboxyhemoglobin Sodium Potassium Chloride Carbon Dioxide BUN 20 H Creatinine 0.2 L Glucose POC Glucose 245 H 66 L Hemoglobin A1c Magnesium Ferritin AST ALT Alkaline Phosphatase Lactate Dehydrogenase C-Reactive Protein Total Protein Albumin Arterial Blood Glucose Coronavirus (PCR) 06/22/21 06/22/21 06/22/21 11:03 16:07 22:03 WBC MCV MCH MCHC RDW Lymph % (Auto) [place] % (Auto) Eos % (Auto) Lymph # (Auto) [place] # (Auto) Eos # (Auto) Baso # (Auto) Seg Neutrophils % Seg Neuts % (Manual) Lymphocytes % (Manual) Seg Neutrophils # Seg Neutrophils # Man Lymphocytes # (Manual) D-Dimer ABG pH POC ABG pCO2 POC ABG pO2 ABG pO2 ABG HCO3 ABG O2 Saturation ABG Base Excess ABG Oxyhemoglobin ABG Sodium ABG Chloride ABG Glucose Oxyhemoglobin Carboxyhemoglobin Sodium Potassium Chloride Carbon Dioxide BUN Creatinine Glucose POC Glucose 184 H 326 H 138 H Hemoglobin A1c Magnesium Ferritin AST ALT Alkaline Phosphatase Lactate Dehydrogenase C-Reactive Protein Total Protein Albumin Arterial Blood Glucose Coronavirus (PCR) 06/23/21 06/23/21 06/23/21 07:19 10:34 16:35 WBC MCV MCH MCHC RDW Lymph % (Auto) [place] % (Auto) Eos % (Auto) Lymph # (Auto) [place] # (Auto) Eos # (Auto) Baso # (Auto) Seg Neutrophils % Seg Neuts % (Manual) Lymphocytes % (Manual) Seg Neutrophils # Seg Neutrophils # Man Lymphocytes # (Manual) D-Dimer ABG pH POC ABG pCO2 POC ABG pO2 ABG pO2 ABG HCO3 ABG O2 Saturation ABG Base Excess ABG Oxyhemoglobin ABG Sodium ABG Chloride ABG Glucose Oxyhemoglobin Carboxyhemoglobin Sodium Potassium Chloride Carbon Dioxide BUN Creatinine Glucose POC Glucose 69 L 218 H 326 H Hemoglobin A1c Magnesium Ferritin AST ALT Alkaline Phosphatase Lactate Dehydrogenase C-Reactive Protein Total Protein Albumin Arterial Blood Glucose Coronavirus (PCR) 06/23/21 06/24/21 06/24/21 22:44 11:41 16:54 WBC MCV MCH MCHC RDW Lymph % (Auto) [place] % (Auto) Eos % (Auto) Lymph # (Auto) [place] # (Auto) Eos # (Auto) Baso # (Auto) Seg Neutrophils % Seg Neuts % (Manual) Lymphocytes % (Manual) Seg Neutrophils # Seg Neutrophils # Man Lymphocytes # (Manual) D-Dimer ABG pH POC ABG pCO2 POC ABG pO2 ABG pO2 ABG HCO3 ABG O2 Saturation ABG Base Excess ABG Oxyhemoglobin ABG Sodium ABG Chloride ABG Glucose Oxyhemoglobin Carboxyhemoglobin Sodium Potassium Chloride Carbon Dioxide BUN Creatinine Glucose POC Glucose 252 H 217 H 357 H Hemoglobin A1c Magnesium Ferritin AST ALT Alkaline Phosphatase Lactate Dehydrogenase C-Reactive Protein Total Protein Albumin Arterial Blood Glucose Coronavirus (PCR) 06/24/21 06/25/21 06/25/21 20:40 11:51 16:47 WBC MCV MCH MCHC RDW Lymph % (Auto) [place] % (Auto) Eos % (Auto) Lymph # (Auto) [place] # (Auto) Eos # (Auto) Baso # (Auto) Seg Neutrophils % Seg Neuts % (Manual) Lymphocytes % (Manual) Seg Neutrophils # Seg Neutrophils # Man Lymphocytes # (Manual) D-Dimer ABG pH POC ABG pCO2 POC ABG pO2 ABG pO2 ABG HCO3 ABG O2 Saturation ABG Base Excess ABG Oxyhemoglobin ABG Sodium ABG Chloride ABG Glucose Oxyhemoglobin Carboxyhemoglobin Sodium Potassium Chloride Carbon Dioxide BUN Creatinine Glucose POC Glucose 239 H 182 H 229 H Hemoglobin A1c Magnesium Ferritin AST ALT Alkaline Phosphatase Lactate Dehydrogenase C-Reactive Protein Total Protein Albumin Arterial Blood Glucose Coronavirus (PCR) 06/25/21 06/26/21 06/26/21 22:27 07:20 12:19 WBC MCV MCH MCHC RDW Lymph % (Auto) [place] % (Auto) Eos % (Auto) Lymph # (Auto) [place] # (Auto) Eos # (Auto) Baso # (Auto) Seg Neutrophils % Seg Neuts % (Manual) Lymphocytes % (Manual) Seg Neutrophils # Seg Neutrophils # Man Lymphocytes # (Manual) D-Dimer ABG pH POC ABG pCO2 POC ABG pO2 ABG pO2 ABG HCO3 ABG O2 Saturation ABG Base Excess ABG Oxyhemoglobin ABG Sodium ABG Chloride ABG Glucose Oxyhemoglobin Carboxyhemoglobin Sodium Potassium 3.2 L D Chloride Carbon Dioxide BUN 20 H Creatinine 0.3 L Glucose POC Glucose 209 H 273 H Hemoglobin A1c Magnesium Ferritin AST ALT 77 H Alkaline Phosphatase Lactate Dehydrogenase C-Reactive Protein Total Protein Albumin 3.3 L Arterial Blood Glucose Coronavirus (PCR) 06/26/21 06/26/21 06/27/21 16:52 20:55 07:14 WBC MCV MCH MCHC RDW Lymph % (Auto) [place] % (Auto) Eos % (Auto) Lymph # (Auto) [place] # (Auto) Eos # (Auto) Baso # (Auto) Seg Neutrophils % Seg Neuts % (Manual) Lymphocytes % (Manual) Seg Neutrophils # Seg Neutrophils # Man Lymphocytes # (Manual) D-Dimer ABG pH POC ABG pCO2 POC ABG pO2 ABG pO2 ABG HCO3 ABG O2 Saturation ABG Base Excess ABG Oxyhemoglobin ABG Sodium ABG Chloride ABG Glucose Oxyhemoglobin Carboxyhemoglobin Sodium Potassium Chloride Carbon Dioxide 31 H BUN 19 H Creatinine 0.2 L Glucose 112 H POC Glucose 326 H 220 H Hemoglobin A1c Magnesium Ferritin AST ALT Alkaline Phosphatase Lactate Dehydrogenase C-Reactive Protein Total Protein Albumin Arterial Blood Glucose Coronavirus (PCR) 06/27/21 06/27/21 06/27/21 07:29 10:54 15:49 WBC MCV MCH MCHC RDW Lymph % (Auto) [place] % (Auto) Eos % (Auto) Lymph # (Auto) [place] # (Auto) Eos # (Auto) Baso # (Auto) Seg Neutrophils % Seg Neuts % (Manual) Lymphocytes % (Manual) Seg Neutrophils # Seg Neutrophils # Man Lymphocytes # (Manual) D-Dimer ABG pH POC ABG pCO2 POC ABG pO2 ABG pO2 ABG HCO3 ABG O2 Saturation ABG Base Excess ABG Oxyhemoglobin ABG Sodium ABG Chloride ABG Glucose Oxyhemoglobin Carboxyhemoglobin Sodium Potassium Chloride Carbon Dioxide BUN Creatinine Glucose POC Glucose 115 H 228 H 240 H Hemoglobin A1c Magnesium Ferritin AST ALT Alkaline Phosphatase Lactate Dehydrogenase C-Reactive Protein Total Protein Albumin Arterial Blood Glucose Coronavirus (PCR) 06/28/21 06/28/21 06/28/21 05:43 05:43 07:13 WBC MCV MCH 33 H MCHC RDW 19.8 H Lymph % (Auto) [place] % (Auto) Eos % (Auto) Lymph # (Auto) [place] # (Auto) Eos # (Auto) Baso # (Auto) Seg Neutrophils % Seg Neuts % (Manual) Lymphocytes % (Manual) Seg Neutrophils # Seg Neutrophils # Man Lymphocytes # (Manual) D-Dimer ABG pH POC ABG pCO2 POC ABG pO2 ABG pO2 ABG HCO3 ABG O2 Saturation ABG Base Excess ABG Oxyhemoglobin ABG Sodium ABG Chloride ABG Glucose Oxyhemoglobin Carboxyhemoglobin Sodium Potassium 3.3 L Chloride Carbon Dioxide BUN 22 H Creatinine 0.2 L Glucose POC Glucose 69 L Hemoglobin A1c Magnesium Ferritin AST ALT 63 H Alkaline Phosphatase Lactate Dehydrogenase C-Reactive Protein Total Protein Albumin 3.3 L Arterial Blood Glucose Coronavirus (PCR) 06/28/21 06/28/21 06/28/21 12:18 15:37 21:01 WBC MCV MCH MCHC RDW Lymph % (Auto) [place] % (Auto) Eos % (Auto) Lymph # (Auto) [place] # (Auto) Eos # (Auto) Baso # (Auto) Seg Neutrophils % Seg Neuts % (Manual) Lymphocytes % (Manual) Seg Neutrophils # Seg Neutrophils # Man Lymphocytes # (Manual) D-Dimer ABG pH POC ABG pCO2 POC ABG pO2 ABG pO2 ABG HCO3 ABG O2 Saturation ABG Base Excess ABG Oxyhemoglobin ABG Sodium ABG Chloride ABG Glucose Oxyhemoglobin Carboxyhemoglobin Sodium Potassium Chloride Carbon Dioxide BUN Creatinine Glucose POC Glucose 154 H 201 H 191 H Hemoglobin A1c Magnesium Ferritin AST ALT Alkaline Phosphatase Lactate Dehydrogenase C-Reactive Protein Total Protein Albumin Arterial Blood Glucose Coronavirus (PCR) 06/29/21 06/29/21 06/29/21 11:55 15:47 21:06 WBC MCV MCH MCHC RDW Lymph % (Auto) [place] % (Auto) Eos % (Auto) Lymph # (Auto) [place] # (Auto) Eos # (Auto) Baso # (Auto) Seg Neutrophils % Seg Neuts % (Manual) Lymphocytes % (Manual) Seg Neutrophils # Seg Neutrophils # Man Lymphocytes # (Manual) D-Dimer ABG pH POC ABG pCO2 POC ABG pO2 ABG pO2 ABG HCO3 ABG O2 Saturation ABG Base Excess ABG Oxyhemoglobin ABG Sodium ABG Chloride ABG Glucose Oxyhemoglobin Carboxyhemoglobin Sodium Potassium Chloride Carbon Dioxide BUN Creatinine Glucose POC Glucose 238 H 249 H 155 H Hemoglobin A1c Magnesium Ferritin AST ALT Alkaline Phosphatase Lactate Dehydrogenase C-Reactive Protein Total Protein Albumin Arterial Blood Glucose Coronavirus (PCR) 06/30/21 06/30/21 06/30/21 04:00 07:50 11:50 WBC MCV MCH MCHC RDW Lymph % (Auto) [place] % (Auto) Eos % (Auto) Lymph # (Auto) [place] # (Auto) Eos # (Auto) Baso # (Auto) Seg Neutrophils % Seg Neuts % (Manual) Lymphocytes % (Manual) Seg Neutrophils # Seg Neutrophils # Man Lymphocytes # (Manual) D-Dimer ABG pH POC ABG pCO2 POC ABG pO2 ABG pO2 ABG HCO3 ABG O2 Saturation ABG Base Excess ABG Oxyhemoglobin ABG Sodium ABG Chloride ABG Glucose Oxyhemoglobin Carboxyhemoglobin Sodium Potassium 3.5 L Chloride Carbon Dioxide BUN 18 H Creatinine 0.3 L Glucose 111 H POC Glucose 117 H 250 H Hemoglobin A1c Magnesium Ferritin AST ALT Alkaline Phosphatase Lactate Dehydrogenase C-Reactive Protein Total Protein Albumin Arterial Blood Glucose Coronavirus (PCR) 06/30/21 06/30/2121 16:05 21:02 07:26 WBC MCV MCH MCHC RDW Lymph % (Auto) [place] % (Auto) Eos % (Auto) Lymph # (Auto) [place] # (Auto) Eos # (Auto) Baso # (Auto) Seg Neutrophils % Seg Neuts % (Manual) Lymphocytes % (Manual) Seg Neutrophils # Seg Neutrophils # Man Lymphocytes # (Manual) D-Dimer ABG pH POC ABG pCO2 POC ABG pO2 ABG pO2 ABG HCO3 ABG O2 Saturation ABG Base Excess ABG Oxyhemoglobin ABG Sodium ABG Chloride ABG Glucose Oxyhemoglobin Carboxyhemoglobin Sodium Potassium Chloride Carbon Dioxide BUN Creatinine Glucose POC Glucose 250 H 217 H 111 H Hemoglobin A1c Magnesium Ferritin AST ALT Alkaline Phosphatase Lactate Dehydrogenase C-Reactive Protein Total Protein Albumin Arterial Blood Glucose Coronavirus (PCR) 07/01/21 07/01/21 07/01/21 11:06 15:48 21:31 WBC MCV MCH MCHC RDW Lymph % (Auto) [place] % (Auto) Eos % (Auto) Lymph # (Auto) [place] # (Auto) Eos # (Auto) Baso # (Auto) Seg Neutrophils % Seg Neuts % (Manual) Lymphocytes % (Manual) Seg Neutrophils # Seg Neutrophils # Man Lymphocytes # (Manual) D-Dimer ABG pH POC ABG pCO2 POC ABG pO2 ABG pO2 ABG HCO3 ABG O2 Saturation ABG Base Excess ABG Oxyhemoglobin ABG Sodium ABG Chloride ABG Glucose Oxyhemoglobin Carboxyhemoglobin Sodium Potassium Chloride Carbon Dioxide BUN Creatinine Glucose POC Glucose 229 H 239 H 199 H Hemoglobin A1c Magnesium Ferritin AST ALT Alkaline Phosphatase Lactate Dehydrogenase C-Reactive Protein Total Protein Albumin Arterial Blood Glucose Coronavirus (PCR) 07/02/21 07/02/21 07/02/21 11:50 16:44 21:49 WBC MCV MCH MCHC RDW Lymph % (Auto) [place] % (Auto) Eos % (Auto) Lymph # (Auto) [place] # (Auto) Eos # (Auto) Baso # (Auto) Seg Neutrophils % Seg Neuts % (Manual) Lymphocytes % (Manual) Seg Neutrophils # Seg Neutrophils # Man Lymphocytes # (Manual) D-Dimer ABG pH POC ABG pCO2 POC ABG pO2 ABG pO2 ABG HCO3 ABG O2 Saturation ABG Base Excess ABG Oxyhemoglobin ABG Sodium ABG Chloride ABG Glucose Oxyhemoglobin Carboxyhemoglobin Sodium Potassium Chloride Carbon Dioxide BUN Creatinine Glucose POC Glucose 230 H 203 H 197 H Hemoglobin A1c Magnesium Ferritin AST ALT Alkaline Phosphatase Lactate Dehydrogenase C-Reactive Protein Total Protein Albumin Arterial Blood Glucose Coronavirus (PCR) 07/03/21 07/03/21 07/03/21 05:46 05:46 11:59 WBC MCV MCH MCHC RDW 19.6 H Lymph % (Auto) [place] % (Auto) Eos % (Auto) Lymph # (Auto) [place] # (Auto) Eos # (Auto) Baso # (Auto) Seg Neutrophils % Seg Neuts % (Manual) Lymphocytes % (Manual) Seg Neutrophils # Seg Neutrophils # Man Lymphocytes # (Manual) D-Dimer ABG pH POC ABG pCO2 POC ABG pO2 ABG pO2 ABG HCO3 ABG O2 Saturation ABG Base Excess ABG Oxyhemoglobin ABG Sodium ABG Chloride ABG Glucose Oxyhemoglobin Carboxyhemoglobin Sodium Potassium 3.2 L Chloride Carbon Dioxide BUN Creatinine 0.3 L Glucose POC Glucose 145 H Hemoglobin A1c Magnesium Ferritin AST ALT Alkaline Phosphatase Lactate Dehydrogenase C-Reactive Protein Total Protein Albumin Arterial Blood Glucose Coronavirus (PCR) 07/03/21 07/03/21 07/04/21 16:40 22:00 06:35 WBC MCV MCH MCHC RDW Lymph % (Auto) [place] % (Auto) Eos % (Auto) Lymph # (Auto) [place] # (Auto) Eos # (Auto) Baso # (Auto) Seg Neutrophils % Seg Neuts % (Manual) Lymphocytes % (Manual) Seg Neutrophils # Seg Neutrophils # Man Lymphocytes # (Manual) D-Dimer ABG pH POC ABG pCO2 POC ABG pO2 ABG pO2 ABG HCO3 ABG O2 Saturation ABG Base Excess ABG Oxyhemoglobin ABG Sodium ABG Chloride ABG Glucose Oxyhemoglobin Carboxyhemoglobin Sodium Potassium Chloride Carbon Dioxide BUN Creatinine 0.3 L Glucose 118 H POC Glucose 176 H 127 H Hemoglobin A1c Magnesium Ferritin AST ALT Alkaline Phosphatase Lactate Dehydrogenase C-Reactive Protein Total Protein Albumin Arterial Blood Glucose Coronavirus (PCR) 07/04/21 07/04/21 07/05/21 12:30 16:38 08:37 WBC MCV MCH MCHC RDW Lymph % (Auto) [place] % (Auto) Eos % (Auto) Lymph # (Auto) [place] # (Auto) Eos # (Auto) Baso # (Auto) Seg Neutrophils % Seg Neuts % (Manual) Lymphocytes % (Manual) Seg Neutrophils # Seg Neutrophils # Man Lymphocytes # (Manual) D-Dimer ABG pH POC ABG pCO2 POC ABG pO2 ABG pO2 ABG HCO3 ABG O2 Saturation ABG Base Excess ABG Oxyhemoglobin ABG Sodium ABG Chloride ABG Glucose Oxyhemoglobin Carboxyhemoglobin Sodium Potassium Chloride Carbon Dioxide BUN Creatinine Glucose POC Glucose 162 H 205 H 115 H Hemoglobin A1c Magnesium Ferritin AST ALT Alkaline Phosphatase Lactate Dehydrogenase C-Reactive Protein Total Protein Albumin Arterial Blood Glucose Coronavirus (PCR) 07/05/21 07/05/21 07/05/21 10:57 16:42 21:14 WBC MCV MCH MCHC RDW Lymph % (Auto) [place] % (Auto) Eos % (Auto) Lymph # (Auto) [place] # (Auto) Eos # (Auto) Baso # (Auto) Seg Neutrophils % Seg Neuts % (Manual) Lymphocytes % (Manual) Seg Neutrophils # Seg Neutrophils # Man Lymphocytes # (Manual) D-Dimer ABG pH POC ABG pCO2 POC ABG pO2 ABG pO2 ABG HCO3 ABG O2 Saturation ABG Base Excess ABG Oxyhemoglobin ABG Sodium ABG Chloride ABG Glucose Oxyhemoglobin Carboxyhemoglobin Sodium Potassium Chloride Carbon Dioxide BUN Creatinine Glucose POC Glucose 151 H 184 H 130 H Hemoglobin A1c Magnesium Ferritin AST ALT Alkaline Phosphatase Lactate Dehydrogenase C-Reactive Protein Total Protein Albumin Arterial Blood Glucose Coronavirus (PCR) 07/06/21 07/06/21 07/06/21 07:31 11:49 16:46 WBC MCV MCH MCHC RDW Lymph % (Auto) [place] % (Auto) Eos % (Auto) Lymph # (Auto) [place] # (Auto) Eos # (Auto) Baso # (Auto) Seg Neutrophils % Seg Neuts % (Manual) Lymphocytes % (Manual) Seg Neutrophils # Seg Neutrophils # Man Lymphocytes # (Manual) D-Dimer ABG pH POC ABG pCO2 POC ABG pO2 ABG pO2 ABG HCO3 ABG O2 Saturation ABG Base Excess ABG Oxyhemoglobin ABG Sodium ABG Chloride ABG Glucose Oxyhemoglobin Carboxyhemoglobin Sodium Potassium Chloride Carbon Dioxide BUN Creatinine Glucose POC Glucose 106 H 173 H 205 H Hemoglobin A1c Magnesium Ferritin AST ALT Alkaline Phosphatase Lactate Dehydrogenase C-Reactive Protein Total Protein Albumin Arterial Blood Glucose Coronavirus (PCR) 07/06/21 07/07/21 07/07/21 21:38 06:00 06:00 WBC 16.1 H MCV MCH MCHC RDW 18.8 H Lymph % (Auto) [place] % (Auto) Eos % (Auto) Lymph # (Auto) [place] # (Auto) 1.1 H Eos # (Auto) Baso # (Auto) 0.2 H Seg Neutrophils % 74.9 H Seg Neuts % (Manual) Lymphocytes % (Manual) Seg Neutrophils # 12.1 H Seg Neutrophils # Man Lymphocytes # (Manual) D-Dimer ABG pH POC ABG pCO2 POC ABG pO2 ABG pO2 ABG HCO3 ABG O2 Saturation ABG Base Excess ABG Oxyhemoglobin ABG Sodium ABG Chloride ABG Glucose Oxyhemoglobin Carboxyhemoglobin Sodium Potassium 3.5 L D Chloride Carbon Dioxide BUN 6 L Creatinine < 0.2 L Glucose 106 H POC Glucose 120 H Hemoglobin A1c Magnesium Ferritin AST ALT Alkaline Phosphatase Lactate Dehydrogenase C-Reactive Protein Total Protein Albumin Arterial Blood Glucose Coronavirus (PCR) 07/07/21 07/07/21 07/07/21 07:10 11:53 15:53 WBC MCV MCH MCHC RDW Lymph % (Auto) [place] % (Auto) Eos % (Auto) Lymph # (Auto) [place] # (Auto) Eos # (Auto) Baso # (Auto) Seg Neutrophils % Seg Neuts % (Manual) Lymphocytes % (Manual) Seg Neutrophils # Seg Neutrophils # Man Lymphocytes # (Manual) D-Dimer ABG pH POC ABG pCO2 POC ABG pO2 ABG pO2 ABG HCO3 ABG O2 Saturation ABG Base Excess ABG Oxyhemoglobin ABG Sodium ABG Chloride ABG Glucose Oxyhemoglobin Carboxyhemoglobin Sodium Potassium Chloride Carbon Dioxide BUN Creatinine Glucose POC Glucose 132 H 169 H 242 H Hemoglobin A1c Magnesium Ferritin AST ALT Alkaline Phosphatase Lactate Dehydrogenase C-Reactive Protein Total Protein Albumin Arterial Blood Glucose Coronavirus (PCR) 07/07/21 07/08/21 07/08/21 21:41 08:09 12:20 WBC MCV MCH MCHC RDW Lymph % (Auto) [place] % (Auto) Eos % (Auto) Lymph # (Auto) [place] # (Auto) Eos # (Auto) Baso # (Auto) Seg Neutrophils % Seg Neuts % (Manual) Lymphocytes % (Manual) Seg Neutrophils # Seg Neutrophils # Man Lymphocytes # (Manual) D-Dimer ABG pH POC ABG pCO2 POC ABG pO2 ABG pO2 ABG HCO3 ABG O2 Saturation ABG Base Excess ABG Oxyhemoglobin ABG Sodium ABG Chloride ABG Glucose Oxyhemoglobin Carboxyhemoglobin Sodium Potassium Chloride Carbon Dioxide BUN Creatinine Glucose POC Glucose 128 H 132 H 179 H Hemoglobin A1c Magnesium Ferritin AST ALT Alkaline Phosphatase Lactate Dehydrogenase C-Reactive Protein Total Protein Albumin Arterial Blood Glucose Coronavirus (PCR) 07/08/21 07/08/21 07/08/21 16:37 21:45 22:44 WBC MCV MCH MCHC RDW Lymph % (Auto) [place] % (Auto) Eos % (Auto) Lymph # (Auto) [place] # (Auto) Eos # (Auto) Baso # (Auto) Seg Neutrophils % Seg Neuts % (Manual) Lymphocytes % (Manual) Seg Neutrophils # Seg Neutrophils # Man Lymphocytes # (Manual) D-Dimer ABG pH POC ABG pCO2 POC ABG pO2 ABG pO2 ABG HCO3 ABG O2 Saturation ABG Base Excess ABG Oxyhemoglobin ABG Sodium ABG Chloride ABG Glucose Oxyhemoglobin Carboxyhemoglobin Sodium Potassium Chloride Carbon Dioxide BUN Creatinine Glucose POC Glucose 192 H 51 L 137 H Hemoglobin A1c Magnesium Ferritin AST ALT Alkaline Phosphatase Lactate Dehydrogenase C-Reactive Protein Total Protein Albumin Arterial Blood Glucose Coronavirus (PCR) 07/09/21 07/09/21 07/09/21 04:45 04:45 04:45 WBC MCV MCH MCHC RDW 18.3 H Lymph % (Auto) [place] % (Auto) Eos % (Auto) Lymph # (Auto) [place] # (Auto) Eos # (Auto) Baso # (Auto) Seg Neutrophils % Seg Neuts % (Manual) 82.0 H Lymphocytes % (Manual) 13.0 L Seg Neutrophils # Seg Neutrophils # Man 7.8 H Lymphocytes # (Manual) D-Dimer 638.35 H ABG pH POC ABG pCO2 POC ABG pO2 ABG pO2 ABG HCO3 ABG O2 Saturation ABG Base Excess ABG Oxyhemoglobin ABG Sodium ABG Chloride ABG Glucose Oxyhemoglobin Carboxyhemoglobin Sodium Potassium Chloride 96.9 L Carbon Dioxide 35 H BUN Creatinine 0.2 L Glucose 135 H POC Glucose Hemoglobin A1c Magnesium Ferritin AST ALT Alkaline Phosphatase Lactate Dehydrogenase C-Reactive Protein 4.30 H Total Protein Albumin Arterial Blood Glucose Coronavirus (PCR) 07/09/21 07/09/21 07/09/21 05:19 07:36 11:16 WBC MCV MCH MCHC RDW Lymph % (Auto) [place] % (Auto) Eos % (Auto) Lymph # (Auto) [place] # (Auto) Eos # (Auto) Baso # (Auto) Seg Neutrophils % Seg Neuts % (Manual) Lymphocytes % (Manual) Seg Neutrophils # Seg Neutrophils # Man Lymphocytes # (Manual) D-Dimer ABG pH POC ABG pCO2 POC ABG pO2 ABG pO2 ABG HCO3 ABG O2 Saturation ABG Base Excess ABG Oxyhemoglobin ABG Sodium ABG Chloride ABG Glucose Oxyhemoglobin Carboxyhemoglobin Sodium Potassium Chloride Carbon Dioxide BUN Creatinine Glucose POC Glucose 135 H 148 H 212 H Hemoglobin A1c Magnesium Ferritin AST ALT Alkaline Phosphatase Lactate Dehydrogenase C-Reactive Protein Total Protein Albumin Arterial Blood Glucose Coronavirus (PCR) 07/09/21 07/09/21 07/10/21 15:21 21:12 05:40 WBC MCV MCH MCHC RDW Lymph % (Auto) [place] % (Auto) Eos % (Auto) Lymph # (Auto) [place] # (Auto) Eos # (Auto) Baso # (Auto) Seg Neutrophils % Seg Neuts % (Manual) Lymphocytes % (Manual) Seg Neutrophils # Seg Neutrophils # Man Lymphocytes # (Manual) D-Dimer ABG pH POC ABG pCO2 POC ABG pO2 ABG pO2 ABG HCO3 ABG O2 Saturation ABG Base Excess ABG Oxyhemoglobin ABG Sodium ABG Chloride ABG Glucose Oxyhemoglobin Carboxyhemoglobin Sodium Potassium 3.3 L Chloride 95.1 L Carbon Dioxide 39 H BUN Creatinine 0.2 L Glucose 122 H POC Glucose 128 H 196 H Hemoglobin A1c Magnesium Ferritin AST ALT Alkaline Phosphatase Lactate Dehydrogenase C-Reactive Protein Total Protein Albumin Arterial Blood Glucose Coronavirus (PCR) 07/10/21 07/10/21 07/10/21 07:38 11:15 16:29 WBC MCV MCH MCHC RDW Lymph % (Auto) [place] % (Auto) Eos % (Auto) Lymph # (Auto) [place] # (Auto) Eos # (Auto) Baso # (Auto) Seg Neutrophils % Seg Neuts % (Manual) Lymphocytes % (Manual) Seg Neutrophils # Seg Neutrophils # Man Lymphocytes # (Manual) D-Dimer ABG pH POC ABG pCO2 POC ABG pO2 ABG pO2 ABG HCO3 ABG O2 Saturation ABG Base Excess ABG Oxyhemoglobin ABG Sodium ABG Chloride ABG Glucose Oxyhemoglobin Carboxyhemoglobin Sodium Potassium Chloride Carbon Dioxide BUN Creatinine Glucose POC Glucose 128 H 175 H 174 H Hemoglobin A1c Magnesium Ferritin AST ALT Alkaline Phosphatase Lactate Dehydrogenase C-Reactive Protein Total Protein Albumin Arterial Blood Glucose Coronavirus (PCR) 07/10/21 07/11/21 07/11/21 20:49 05:50 12:08 WBC MCV MCH MCHC RDW Lymph % (Auto) [place] % (Auto) Eos % (Auto) Lymph # (Auto) [place] # (Auto) Eos # (Auto) Baso # (Auto) Seg Neutrophils % Seg Neuts % (Manual) Lymphocytes % (Manual) Seg Neutrophils # Seg Neutrophils # Man Lymphocytes # (Manual) D-Dimer ABG pH POC ABG pCO2 POC ABG pO2 ABG pO2 ABG HCO3 ABG O2 Saturation ABG Base Excess ABG Oxyhemoglobin ABG Sodium ABG Chloride ABG Glucose Oxyhemoglobin Carboxyhemoglobin Sodium Potassium Chloride 97.3 L Carbon Dioxide 34 H BUN Creatinine 0.2 L Glucose 109 H POC Glucose 142 H 220 H Hemoglobin A1c Magnesium Ferritin AST ALT Alkaline Phosphatase Lactate Dehydrogenase C-Reactive Protein Total Protein Albumin Arterial Blood Glucose Coronavirus (PCR) 07/11/21 07/11/21 07/12/21 17:09 21:55 07:36 WBC MCV MCH MCHC RDW Lymph % (Auto) [place] % (Auto) Eos % (Auto) Lymph # (Auto) [place] # (Auto) Eos # (Auto) Baso # (Auto) Seg Neutrophils % Seg Neuts % (Manual) Lymphocytes % (Manual) Seg Neutrophils # Seg Neutrophils # Man Lymphocytes # (Manual) D-Dimer ABG pH POC ABG pCO2 POC ABG pO2 ABG pO2 ABG HCO3 ABG O2 Saturation ABG Base Excess ABG Oxyhemoglobin ABG Sodium ABG Chloride ABG Glucose Oxyhemoglobin Carboxyhemoglobin Sodium Potassium Chloride Carbon Dioxide BUN Creatinine Glucose POC Glucose 219 H 124 H 114 H Hemoglobin A1c Magnesium Ferritin AST ALT Alkaline Phosphatase Lactate Dehydrogenase C-Reactive Protein Total Protein Albumin Arterial Blood Glucose Coronavirus (PCR) 07/12/21 07/12/21 07/12/21 11:08 15:43 22:20 WBC MCV MCH MCHC RDW Lymph % (Auto) [place] % (Auto) Eos % (Auto) Lymph # (Auto) [place] # (Auto) Eos # (Auto) Baso # (Auto) Seg Neutrophils % Seg Neuts % (Manual) Lymphocytes % (Manual) Seg Neutrophils # Seg Neutrophils # Man Lymphocytes # (Manual) D-Dimer ABG pH POC ABG pCO2 POC ABG pO2 ABG pO2 ABG HCO3 ABG O2 Saturation ABG Base Excess ABG Oxyhemoglobin ABG Sodium ABG Chloride ABG Glucose Oxyhemoglobin Carboxyhemoglobin Sodium Potassium Chloride Carbon Dioxide BUN Creatinine Glucose POC Glucose 195 H 276 H 189 H Hemoglobin A1c Magnesium Ferritin AST ALT Alkaline Phosphatase Lactate Dehydrogenase C-Reactive Protein Total Protein Albumin Arterial Blood Glucose Coronavirus (PCR) 07/13/21 07/13/21 07/13/21 08:01 08:08 10:17 WBC MCV MCH MCHC RDW Lymph % (Auto) [place] % (Auto) Eos % (Auto) Lymph # (Auto) [place] # (Auto) Eos # (Auto) Baso # (Auto) Seg Neutrophils % Seg Neuts % (Manual) Lymphocytes % (Manual) Seg Neutrophils # Seg Neutrophils # Man Lymphocytes # (Manual) D-Dimer ABG pH POC ABG pCO2 POC ABG pO2 ABG pO2 ABG HCO3 ABG O2 Saturation ABG Base Excess ABG Oxyhemoglobin ABG Sodium ABG Chloride ABG Glucose Oxyhemoglobin Carboxyhemoglobin Sodium Potassium Chloride 94.4 L Carbon Dioxide 34 H BUN Creatinine 0.3 L Glucose 149 H POC Glucose 132 H 265 H Hemoglobin A1c Magnesium Ferritin AST ALT Alkaline Phosphatase Lactate Dehydrogenase C-Reactive Protein Total Protein Albumin Arterial Blood Glucose Coronavirus (PCR) 07/13/21 07/13/21 07/14/21 17:58 21:41 07:34 WBC MCV MCH MCHC RDW Lymph % (Auto) [place] % (Auto) Eos % (Auto) Lymph # (Auto) [place] # (Auto) Eos # (Auto) Baso # (Auto) Seg Neutrophils % Seg Neuts % (Manual) Lymphocytes % (Manual) Seg Neutrophils # Seg Neutrophils # Man Lymphocytes # (Manual) D-Dimer ABG pH POC ABG pCO2 POC ABG pO2 ABG pO2 ABG HCO3 ABG O2 Saturation ABG Base Excess ABG Oxyhemoglobin ABG Sodium ABG Chloride ABG Glucose Oxyhemoglobin Carboxyhemoglobin Sodium Potassium Chloride Carbon Dioxide BUN Creatinine Glucose POC Glucose 217 H 223 H 116 H Hemoglobin A1c Magnesium Ferritin AST ALT Alkaline Phosphatase Lactate Dehydrogenase C-Reactive Protein Total Protein Albumin Arterial Blood Glucose Coronavirus (PCR) 07/14/21 07/14/21 07/14/21 10:50 17:33 20:51 WBC MCV MCH MCHC RDW Lymph % (Auto) [place] % (Auto) Eos % (Auto) Lymph # (Auto) [place] # (Auto) Eos # (Auto) Baso # (Auto) Seg Neutrophils % Seg Neuts % (Manual) Lymphocytes % (Manual) Seg Neutrophils # Seg Neutrophils # Man Lymphocytes # (Manual) D-Dimer ABG pH POC ABG pCO2 POC ABG pO2 ABG pO2 ABG HCO3 ABG O2 Saturation ABG Base Excess ABG Oxyhemoglobin ABG Sodium ABG Chloride ABG Glucose Oxyhemoglobin Carboxyhemoglobin Sodium Potassium Chloride Carbon Dioxide BUN Creatinine Glucose POC Glucose 191 H 173 H 132 H Hemoglobin A1c Magnesium Ferritin AST ALT Alkaline Phosphatase Lactate Dehydrogenase C-Reactive Protein Total Protein Albumin Arterial Blood Glucose Coronavirus (PCR) 07/15/21 07/15/21 07/15/21 04:00 07:59 12:31 WBC MCV MCH MCHC RDW Lymph % (Auto) [place] % (Auto) Eos % (Auto) Lymph # (Auto) [place] # (Auto) Eos # (Auto) Baso # (Auto) Seg Neutrophils % Seg Neuts % (Manual) Lymphocytes % (Manual) Seg Neutrophils # Seg Neutrophils # Man Lymphocytes # (Manual) D-Dimer ABG pH POC ABG pCO2 POC ABG pO2 ABG pO2 ABG HCO3 ABG O2 Saturation ABG Base Excess ABG Oxyhemoglobin ABG Sodium ABG Chloride ABG Glucose Oxyhemoglobin Carboxyhemoglobin Sodium Potassium Chloride 96.0 L Carbon Dioxide 32 H BUN Creatinine 0.3 L Glucose 208 H POC Glucose 117 H 195 H Hemoglobin A1c Magnesium Ferritin AST ALT Alkaline Phosphatase Lactate Dehydrogenase C-Reactive Protein Total Protein Albumin Arterial Blood Glucose Coronavirus (PCR) 07/15/21 07/15/21 07/16/21 18:00 20:57 04:40 WBC MCV MCH MCHC RDW 17.1 H Lymph % (Auto) [place] % (Auto) Eos % (Auto) Lymph # (Auto) [place] # (Auto) Eos # (Auto) Baso # (Auto) Seg Neutrophils % Seg Neuts % (Manual) Lymphocytes % (Manual) Seg Neutrophils # Seg Neutrophils # Man Lymphocytes # (Manual) D-Dimer ABG pH POC ABG pCO2 POC ABG pO2 ABG pO2 ABG HCO3 ABG O2 Saturation ABG Base Excess ABG Oxyhemoglobin ABG Sodium ABG Chloride ABG Glucose Oxyhemoglobin Carboxyhemoglobin Sodium Potassium Chloride Carbon Dioxide BUN Creatinine Glucose POC Glucose 217 H 111 H Hemoglobin A1c Magnesium Ferritin AST ALT Alkaline Phosphatase Lactate Dehydrogenase C-Reactive Protein Total Protein Albumin Arterial Blood Glucose Coronavirus (PCR) 07/16/21 07/16/21 07/16/21 04:40 07:08 11:11 WBC MCV MCH MCHC RDW Lymph % (Auto) [place] % (Auto) Eos % (Auto) Lymph # (Auto) [place] # (Auto) Eos # (Auto) Baso # (Auto) Seg Neutrophils % Seg Neuts % (Manual) Lymphocytes % (Manual) Seg Neutrophils # Seg Neutrophils # Man Lymphocytes # (Manual) D-Dimer ABG pH POC ABG pCO2 POC ABG pO2 ABG pO2 ABG HCO3 ABG O2 Saturation ABG Base Excess ABG Oxyhemoglobin ABG Sodium ABG Chloride ABG Glucose Oxyhemoglobin Carboxyhemoglobin Sodium Potassium 3.4 L Chloride 94.6 L Carbon Dioxide 36 H BUN Creatinine < 0.2 L Glucose 101 H POC Glucose 118 H 184 H Hemoglobin A1c Magnesium Ferritin AST ALT Alkaline Phosphatase Lactate Dehydrogenase C-Reactive Protein Total Protein Albumin Arterial Blood Glucose Coronavirus (PCR) 07/16/21 07/16/21 07/17/21 17:29 22:01 08:10 WBC MCV MCH MCHC RDW Lymph % (Auto) [place] % (Auto) Eos % (Auto) Lymph # (Auto) [place] # (Auto) Eos # (Auto) Baso # (Auto) Seg Neutrophils % Seg Neuts % (Manual) Lymphocytes % (Manual) Seg Neutrophils # Seg Neutrophils # Man Lymphocytes # (Manual) D-Dimer ABG pH POC ABG pCO2 POC ABG pO2 ABG pO2 ABG HCO3 ABG O2 Saturation ABG Base Excess ABG Oxyhemoglobin ABG Sodium ABG Chloride ABG Glucose Oxyhemoglobin Carboxyhemoglobin Sodium Potassium Chloride Carbon Dioxide BUN Creatinine Glucose POC Glucose 200 H 147 H 118 H Hemoglobin A1c Magnesium Ferritin AST ALT Alkaline Phosphatase Lactate Dehydrogenase C-Reactive Protein Total Protein Albumin Arterial Blood Glucose Coronavirus (PCR) 07/17/21 07/17/21 07/17/21 11:38 16:24 21:13 WBC MCV MCH MCHC RDW Lymph % (Auto) [place] % (Auto) Eos % (Auto) Lymph # (Auto) [place] # (Auto) Eos # (Auto) Baso # (Auto) Seg Neutrophils % Seg Neuts % (Manual) Lymphocytes % (Manual) Seg Neutrophils # Seg Neutrophils # Man Lymphocytes # (Manual) D-Dimer ABG pH POC ABG pCO2 POC ABG pO2 ABG pO2 ABG HCO3 ABG O2 Saturation ABG Base Excess ABG Oxyhemoglobin ABG Sodium ABG Chloride ABG Glucose Oxyhemoglobin Carboxyhemoglobin Sodium Potassium Chloride Carbon Dioxide BUN Creatinine Glucose POC Glucose 151 H 268 H 115 H Hemoglobin A1c Magnesium Ferritin AST ALT Alkaline Phosphatase Lactate Dehydrogenase C-Reactive Protein Total Protein Albumin Arterial Blood Glucose Coronavirus (PCR) 07/18/21 07/18/21 07/18/21 07:58 12:29 20:24 WBC MCV MCH MCHC RDW Lymph % (Auto) [place] % (Auto) Eos % (Auto) Lymph # (Auto) [place] # (Auto) Eos # (Auto) Baso # (Auto) Seg Neutrophils % Seg Neuts % (Manual) Lymphocytes % (Manual) Seg Neutrophils # Seg Neutrophils # Man Lymphocytes # (Manual) D-Dimer ABG pH POC ABG pCO2 POC ABG pO2 ABG pO2 ABG HCO3 ABG O2 Saturation ABG Base Excess ABG Oxyhemoglobin ABG Sodium ABG Chloride ABG Glucose Oxyhemoglobin Carboxyhemoglobin Sodium Potassium Chloride Carbon Dioxide BUN Creatinine Glucose POC Glucose 135 H 139 H 130 H Hemoglobin A1c Magnesium Ferritin AST ALT Alkaline Phosphatase Lactate Dehydrogenase C-Reactive Protein Total Protein Albumin Arterial Blood Glucose Coronavirus (PCR) 07/19/21 07/19/21 07/19/21 06:55 06:55 07:54 WBC 14.5 H MCV MCH MCHC RDW 17.3 H Lymph % (Auto) 9.6 L [place] % (Auto) Eos % (Auto) Lymph # (Auto) [place] # (Auto) Eos # (Auto) 0.6 H Baso # (Auto) Seg Neutrophils % 80.3 H Seg Neuts % (Manual) Lymphocytes % (Manual) Seg Neutrophils # 11.7 H Seg Neutrophils # Man Lymphocytes # (Manual) D-Dimer ABG pH POC ABG pCO2 67.9 H POC ABG pO2 131.0 H ABG pO2 ABG HCO3 ABG O2 Saturation ABG Base Excess ABG Oxyhemoglobin ABG Sodium ABG Chloride 97.0 L ABG Glucose 133 H Oxyhemoglobin Carboxyhemoglobin Sodium Potassium Chloride 95.3 L Carbon Dioxide 35 H BUN Creatinine < 0.2 L Glucose 138 H POC Glucose Hemoglobin A1c Magnesium Ferritin AST ALT Alkaline Phosphatase Lactate Dehydrogenase C-Reactive Protein Total Protein Albumin Arterial Blood Glucose 133 H Coronavirus (PCR) 07/19/21 07/19/21 07/19/21 08:10 11:43 17:04 WBC MCV MCH MCHC RDW Lymph % (Auto) [place] % (Auto) Eos % (Auto) Lymph # (Auto) [place] # (Auto) Eos # (Auto) Baso # (Auto) Seg Neutrophils % Seg Neuts % (Manual) Lymphocytes % (Manual) Seg Neutrophils # Seg Neutrophils # Man Lymphocytes # (Manual) D-Dimer ABG pH POC ABG pCO2 POC ABG pO2 ABG pO2 ABG HCO3 ABG O2 Saturation ABG Base Excess ABG Oxyhemoglobin ABG Sodium ABG Chloride ABG Glucose Oxyhemoglobin Carboxyhemoglobin Sodium Potassium Chloride Carbon Dioxide BUN Creatinine Glucose POC Glucose 129 H 126 H 108 H Hemoglobin A1c Magnesium Ferritin AST ALT Alkaline Phosphatase Lactate Dehydrogenase C-Reactive Protein Total Protein Albumin Arterial Blood Glucose Coronavirus (PCR) 07/19/21 07/20/21 07/20/21 21:10 04:00 04:00 WBC MCV MCH MCHC RDW 17.0 H Lymph % (Auto) [place] % (Auto) 8.9 H Eos % (Auto) 6.3 H Lymph # (Auto) [place] # (Auto) 0.9 H Eos # (Auto) 0.6 H Baso # (Auto) Seg Neutrophils % 70.2 H Seg Neuts % (Manual) Lymphocytes % (Manual) Seg Neutrophils # Seg Neutrophils # Man Lymphocytes # (Manual) D-Dimer ABG pH POC ABG pCO2 POC ABG pO2 ABG pO2 ABG HCO3 ABG O2 Saturation ABG Base Excess ABG Oxyhemoglobin ABG Sodium ABG Chloride ABG Glucose Oxyhemoglobin Carboxyhemoglobin Sodium Potassium Chloride 96.7 L Carbon Dioxide 36 H BUN Creatinine 0.2 L Glucose 102 H POC Glucose 109 H Hemoglobin A1c Magnesium Ferritin AST ALT Alkaline Phosphatase Lactate Dehydrogenase C-Reactive Protein Total Protein Albumin 3.2 L Arterial Blood Glucose Coronavirus (PCR) 07/20/21 07/20/21 07/20/21 11:15 15:34 17:01 WBC MCV MCH MCHC RDW Lymph % (Auto) [place] % (Auto) Eos % (Auto) Lymph # (Auto) [place] # (Auto) Eos # (Auto) Baso # (Auto) Seg Neutrophils % Seg Neuts % (Manual) Lymphocytes % (Manual) Seg Neutrophils # Seg Neutrophils # Man Lymphocytes # (Manual) D-Dimer ABG pH POC ABG pCO2 POC ABG pO2 ABG pO2 ABG HCO3 ABG O2 Saturation ABG Base Excess ABG Oxyhemoglobin ABG Sodium ABG Chloride ABG Glucose Oxyhemoglobin Carboxyhemoglobin Sodium Potassium Chloride Carbon Dioxide BUN Creatinine Glucose POC Glucose 109 H 152 H 125 H Hemoglobin A1c Magnesium Ferritin AST ALT Alkaline Phosphatase Lactate Dehydrogenase C-Reactive Protein Total Protein Albumin Arterial Blood Glucose Coronavirus (PCR) 07/20/21 07/21/21 07/21/21 21:00 04:48 04:48 WBC 12.8 H MCV MCH MCHC RDW 16.8 H Lymph % (Auto) 9.3 L [place] % (Auto) Eos % (Auto) Lymph # (Auto) [place] # (Auto) 0.9 H Eos # (Auto) Baso # (Auto) Seg Neutrophils % 81.1 H Seg Neuts % (Manual) Lymphocytes % (Manual) Seg Neutrophils # 10.4 H Seg Neutrophils # Man Lymphocytes # (Manual) D-Dimer ABG pH POC ABG pCO2 POC ABG pO2 ABG pO2 ABG HCO3 ABG O2 Saturation ABG Base Excess ABG Oxyhemoglobin ABG Sodium ABG Chloride ABG Glucose Oxyhemoglobin Carboxyhemoglobin Sodium Potassium Chloride 95.4 L Carbon Dioxide 33 H BUN 6 L Creatinine < 0.2 L Glucose 155 H POC Glucose 211 H Hemoglobin A1c Magnesium 1.60 L Ferritin AST ALT Alkaline Phosphatase Lactate Dehydrogenase C-Reactive Protein Total Protein Albumin Arterial Blood Glucose Coronavirus (PCR) 07/21/21 07/21/21 07/21/21 07:52 11:05 17:01 WBC MCV MCH MCHC RDW Lymph % (Auto) [place] % (Auto) Eos % (Auto) Lymph # (Auto) [place] # (Auto) Eos # (Auto) Baso # (Auto) Seg Neutrophils % Seg Neuts % (Manual) Lymphocytes % (Manual) Seg Neutrophils # Seg Neutrophils # Man Lymphocytes # (Manual) D-Dimer ABG pH POC ABG pCO2 POC ABG pO2 ABG pO2 ABG HCO3 ABG O2 Saturation ABG Base Excess ABG Oxyhemoglobin ABG Sodium ABG Chloride ABG Glucose Oxyhemoglobin Carboxyhemoglobin Sodium Potassium Chloride Carbon Dioxide BUN Creatinine Glucose POC Glucose 116 H 207 H 133 H Hemoglobin A1c Magnesium Ferritin AST ALT Alkaline Phosphatase Lactate Dehydrogenase C-Reactive Protein Total Protein Albumin Arterial Blood Glucose Coronavirus (PCR) 07/21/21 07/22/21 07/22/21 21:17 07:55 07:55 WBC MCV MCH MCHC RDW 16.5 H Lymph % (Auto) [place] % (Auto) 8.6 H Eos % (Auto) Lymph # (Auto) [place] # (Auto) Eos # (Auto) Baso # (Auto) Seg Neutrophils % 72.3 H Seg Neuts % (Manual) Lymphocytes % (Manual) Seg Neutrophils # Seg Neutrophils # Man Lymphocytes # (Manual) D-Dimer ABG pH POC ABG pCO2 POC ABG pO2 ABG pO2 ABG HCO3 ABG O2 Saturation ABG Base Excess ABG Oxyhemoglobin ABG Sodium ABG Chloride ABG Glucose Oxyhemoglobin Carboxyhemoglobin Sodium Potassium Chloride 94.6 L Carbon Dioxide 42 H* D BUN 5 L Creatinine < 0.2 L Glucose POC Glucose 152 H Hemoglobin A1c Magnesium Ferritin AST ALT Alkaline Phosphatase Lactate Dehydrogenase C-Reactive Protein Total Protein Albumin Arterial Blood Glucose Coronavirus (PCR) 07/22/21 07/22/21 07/22/21 11:25 12:05 15:40 WBC MCV MCH MCHC RDW Lymph % (Auto) [place] % (Auto) Eos % (Auto) Lymph # (Auto) [place] # (Auto) Eos # (Auto) Baso # (Auto) Seg Neutrophils % Seg Neuts % (Manual) Lymphocytes % (Manual) Seg Neutrophils # Seg Neutrophils # Man Lymphocytes # (Manual) D-Dimer ABG pH 7.338 L POC ABG pCO2 POC ABG pO2 ABG pO2 66.1 L ABG HCO3 45.0 H ABG O2 Saturation 94.2 L ABG Base Excess 15.2 H ABG Oxyhemoglobin ABG Sodium ABG Chloride ABG Glucose Oxyhemoglobin 91.9 L Carboxyhemoglobin Sodium Potassium Chloride Carbon Dioxide BUN Creatinine Glucose POC Glucose 146 H 219 H Hemoglobin A1c Magnesium Ferritin AST ALT Alkaline Phosphatase Lactate Dehydrogenase C-Reactive Protein Total Protein Albumin Arterial Blood Glucose Coronavirus (PCR) 07/22/21 07/23/21 07/23/21 21:26 04:35 04:35 WBC MCV 98 H MCH MCHC RDW 16.2 H Lymph % (Auto) 7.9 L [place] % (Auto) Eos % (Auto) Lymph # (Auto) 0.9 L [place] # (Auto) Eos # (Auto) Baso # (Auto) Seg Neutrophils % 85.3 H Seg Neuts % (Manual) Lymphocytes % (Manual) Seg Neutrophils # 9.2 H Seg Neutrophils # Man Lymphocytes # (Manual) D-Dimer ABG pH POC ABG pCO2 POC ABG pO2 ABG pO2 ABG HCO3 ABG O2 Saturation ABG Base Excess ABG Oxyhemoglobin ABG Sodium ABG Chloride ABG Glucose Oxyhemoglobin Carboxyhemoglobin Sodium Potassium Chloride 93.9 L Carbon Dioxide 44 H* BUN Creatinine < 0.2 L Glucose 149 H POC Glucose 131 H Hemoglobin A1c Magnesium Ferritin AST ALT Alkaline Phosphatase Lactate Dehydrogenase C-Reactive Protein Total Protein Albumin Arterial Blood Glucose Coronavirus (PCR) 07/23/21 07/23/21 07/23/21 07:20 11:34 16:11 WBC MCV MCH MCHC RDW Lymph % (Auto) [place] % (Auto) Eos % (Auto) Lymph # (Auto) [place] # (Auto) Eos # (Auto) Baso # (Auto) Seg Neutrophils % Seg Neuts % (Manual) Lymphocytes % (Manual) Seg Neutrophils # Seg Neutrophils # Man Lymphocytes # (Manual) D-Dimer ABG pH POC ABG pCO2 POC ABG pO2 ABG pO2 ABG HCO3 ABG O2 Saturation ABG Base Excess ABG Oxyhemoglobin ABG Sodium ABG Chloride ABG Glucose Oxyhemoglobin Carboxyhemoglobin Sodium Potassium Chloride Carbon Dioxide BUN Creatinine Glucose POC Glucose 116 H 172 H 110 H Hemoglobin A1c Magnesium Ferritin AST ALT Alkaline Phosphatase Lactate Dehydrogenase C-Reactive Protein Total Protein Albumin Arterial Blood Glucose Coronavirus (PCR) 07/23/21 07/23/21 07/24/21 18:11 21:33 04:10 WBC MCV MCH MCHC RDW Lymph % (Auto) [place] % (Auto) Eos % (Auto) Lymph # (Auto) [place] # (Auto) Eos # (Auto) Baso # (Auto) Seg Neutrophils % Seg Neuts % (Manual) Lymphocytes % (Manual) Seg Neutrophils # Seg Neutrophils # Man Lymphocytes # (Manual) D-Dimer ABG pH POC ABG pCO2 78.3 H POC ABG pO2 80.7 L ABG pO2 ABG HCO3 ABG O2 Saturation ABG Base Excess ABG Oxyhemoglobin ABG Sodium 134.9 L ABG Chloride 89.0 L ABG Glucose 200 H Oxyhemoglobin Carboxyhemoglobin Sodium Potassium 3.5 L D Chloride 92.4 L Carbon Dioxide 42 H* BUN Creatinine < 0.2 L Glucose 123 H POC Glucose 108 H Hemoglobin A1c Magnesium Ferritin AST ALT Alkaline Phosphatase Lactate Dehydrogenase C-Reactive Protein Total Protein Albumin Arterial Blood Glucose 200 H Coronavirus (PCR) 07/24/21 07/24/21 07/24/21 11:01 16:56 22:06 WBC MCV MCH MCHC RDW Lymph % (Auto) [place] % (Auto) Eos % (Auto) Lymph # (Auto) [place] # (Auto) Eos # (Auto) Baso # (Auto) Seg Neutrophils % Seg Neuts % (Manual) Lymphocytes % (Manual) Seg Neutrophils # Seg Neutrophils # Man Lymphocytes # (Manual) D-Dimer ABG pH POC ABG pCO2 POC ABG pO2 ABG pO2 ABG HCO3 ABG O2 Saturation ABG Base Excess ABG Oxyhemoglobin ABG Sodium ABG Chloride ABG Glucose Oxyhemoglobin Carboxyhemoglobin Sodium Potassium Chloride Carbon Dioxide BUN Creatinine Glucose POC Glucose 171 H 111 H 136 H Hemoglobin A1c Magnesium Ferritin AST ALT Alkaline Phosphatase Lactate Dehydrogenase C-Reactive Protein Total Protein Albumin Arterial Blood Glucose Coronavirus (PCR) 07/25/21 07/25/21 07/25/21 07:40 10:59 11:58 WBC MCV MCH MCHC RDW Lymph % (Auto) [place] % (Auto) Eos % (Auto) Lymph # (Auto) [place] # (Auto) Eos # (Auto) Baso # (Auto) Seg Neutrophils % Seg Neuts % (Manual) Lymphocytes % (Manual) Seg Neutrophils # Seg Neutrophils # Man Lymphocytes # (Manual) D-Dimer ABG pH POC ABG pCO2 POC ABG pO2 ABG pO2 ABG HCO3 ABG O2 Saturation ABG Base Excess ABG Oxyhemoglobin ABG Sodium ABG Chloride ABG Glucose Oxyhemoglobin Carboxyhemoglobin Sodium Potassium Chloride 88.6 L Carbon Dioxide 43 H* BUN Creatinine 0.2 L Glucose 180 H POC Glucose 120 H 153 H Hemoglobin A1c Magnesium Ferritin AST ALT Alkaline Phosphatase Lactate Dehydrogenase C-Reactive Protein Total Protein Albumin Arterial Blood Glucose Coronavirus (PCR) 07/25/21 07/25/21 07/26/21 16:03 20:18 09:56 WBC MCV MCH MCHC RDW Lymph % (Auto) [place] % (Auto) Eos % (Auto) Lymph # (Auto) [place] # (Auto) Eos # (Auto) Baso # (Auto) Seg Neutrophils % Seg Neuts % (Manual) Lymphocytes % (Manual) Seg Neutrophils # Seg Neutrophils # Man Lymphocytes # (Manual) D-Dimer ABG pH POC ABG pCO2 POC ABG pO2 ABG pO2 ABG HCO3 ABG O2 Saturation ABG Base Excess ABG Oxyhemoglobin ABG Sodium ABG Chloride ABG Glucose Oxyhemoglobin Carboxyhemoglobin Sodium Potassium Chloride 91.3 L Carbon Dioxide 45 H* BUN Creatinine < 0.2 L Glucose 128 H POC Glucose 143 H 133 H Hemoglobin A1c Magnesium Ferritin AST ALT Alkaline Phosphatase Lactate Dehydrogenase C-Reactive Protein Total Protein Albumin 3.2 L Arterial Blood Glucose Coronavirus (PCR) 07/26/21 07/26/21 07/27/21 17:56 21:24 07:10 WBC MCV MCH MCHC RDW Lymph % (Auto) [place] % (Auto) Eos % (Auto) Lymph # (Auto) [place] # (Auto) Eos # (Auto) Baso # (Auto) Seg Neutrophils % Seg Neuts % (Manual) Lymphocytes % (Manual) Seg Neutrophils # Seg Neutrophils # Man Lymphocytes # (Manual) D-Dimer ABG pH POC ABG pCO2 POC ABG pO2 ABG pO2 ABG HCO3 ABG O2 Saturation ABG Base Excess ABG Oxyhemoglobin ABG Sodium ABG Chloride ABG Glucose Oxyhemoglobin Carboxyhemoglobin Sodium Potassium Chloride Carbon Dioxide BUN Creatinine Glucose POC Glucose 170 H 122 H 119 H Hemoglobin A1c Magnesium Ferritin AST ALT Alkaline Phosphatase Lactate Dehydrogenase C-Reactive Protein Total Protein Albumin Arterial Blood Glucose Coronavirus (PCR) 07/27/21 11:44 WBC MCV MCH MCHC RDW Lymph % (Auto) [place] % (Auto) Eos % (Auto) Lymph # (Auto) [place] # (Auto) Eos # (Auto) Baso # (Auto) Seg Neutrophils % Seg Neuts % (Manual) Lymphocytes % (Manual) Seg Neutrophils # Seg Neutrophils # Man Lymphocytes # (Manual) D-Dimer ABG pH POC ABG pCO2 POC ABG pO2 ABG pO2 ABG HCO3 ABG O2 Saturation ABG Base Excess ABG Oxyhemoglobin ABG Sodium ABG Chloride ABG Glucose Oxyhemoglobin Carboxyhemoglobin Sodium Potassium Chloride Carbon Dioxide BUN Creatinine Glucose POC Glucose 176 H Hemoglobin A1c Magnesium Ferritin AST ALT Alkaline Phosphatase Lactate Dehydrogenase C-Reactive Protein Total Protein Albumin Arterial Blood Glucose Coronavirus (PCR) Chest x-ray: report reviewed, image reviewed CT scan - chest: report reviewed, image reviewed
[2021-07-27] MEDS: ENOXAPARIN 40 MG/0.4 ML INJ SUB-Q SCH (22:20)
[2021-07-28 08:09] LABS: Blood Urea Nitrogen 8 mg/dL (7-17); Calcium 9.1 mg/dL (8.4-10.2); Hemolysis Index 5
[2021-07-28 08:10] LABS: BUN/Creatinine Ratio 40
--- NOTE | 2021-07-28 08:56 | Progress Note ---
Assessment and Plan Assessment and plan: #Acute hypoxic/hypercapneic respiratory failure #Severe ARDS -Currently on high flow nasal cannula, improving currently on 75% FIO2 -maintain SpO2 >88% -Low threshold for intubation as patient is persistently tachypneic and tachycardic -s/p prednisone taper -Pulmonology following, assistance appreciated -encouraged prone positioning; patient has been poorly tolerating it overnight #Metabolic alkalosis -stable -Patient received multiple doses of Lasix over course of hospital stay but may be 2/2 to compensation for hypercapneia #Hypokalemia -will replete and monitor #Heart failure with preserved ejection fraction -TTE: LVEF 55-60% with diastolic dysfunction -will continue to monitor for signs of fluid overload #COVID-19 infection -Continue Covid vitamins #Type 2 diabetes -continue Lantus 5 units daily and sliding scale insulin #Anxiety -Stable -decreased xanax dose at patients request #DVT prophylaxis -Lovenox 40 daily #Deconditioning -Will benefit from SNF after prolonged hospital stay Resolved issues #Sepsis secondary to COVID-19 #Iatrogenic diarrhea #Hypomagnesemia #Hyponatremia #Protein calorie malnutrition #Dysuria #Possible UTI Disposition Plan: continue medical management Total Time Spent with Patient (Minutes): 20 minutes History Interval history: No acute events overnight. On HFNC 40/75%. Continues to complain of throat pain and feels like she needs more oxygen. Reassured that the oxygen delivered by HFNC was sufficient. Hospitalist Physical - Physical exam Narrative exam: GENERAL: Well-developed well-nourished. Lying in bed in no acute distress. HEENT: High flow nasal cannula at 40L/75% CHEST/LUNGS: Coarse breath sounds bilaterally. HEART/CARDIOVASCULAR: Tachycardic. No murmur, rubs or gallops appreciated. ABDOMEN: +BS. NT/ND. PSYCH: Cooperative. - Constitutional Vitals: Temp Pulse Resp BP Pulse Ox 98.3 F 105 H 37 H 119/77 90 07/28/21 06:23 07/28/21 06:00 07/28/21 06:00 07/28/21 07:00 07/28/21 07:00 General appearance: Present: no acute distress, well-nourished, obese, other (Looks tired) Results - Labs CBC & Chem 7: 07/23/21 04:35 07/28/21 07:30 Labs: Laboratory Last Values WBC 10.8 K/mm3 (4.5-11.0) 07/23/21 04:35 RBC 3.84 M/mm3 (3.65-5.03) 07/23/21 04:35 Hgb 12.1 gm/dl (10.1-14.3) 07/23/21 04:35 Hct 37.6 % (30.3-42.9) 07/23/21 04:35 MCV 98 fl (79-97) H 07/23/21 04:35 MCH 32 pg (28-32) 07/23/21 04:35 MCHC 32 % (30-34) 07/23/21 04:35 RDW 16.2 % (13.2-15.2) H 07/23/21 04:35 Plt Count 367 K/mm3 (140-440) 07/23/21 04:35 Lymph % (Auto) 7.9 % (13.4-35.0) L 07/23/21 04:35 [place] % (Auto) 5.6 % (0.0-7.3) 07/23/21 04:35 Eos % (Auto) 0.8 % (0.0-4.3) 07/23/21 04:35 Baso % (Auto) 0.4 % (0.0-1.8) 07/23/21 04:35 Lymph # (Auto) 0.9 K/mm3 (1.2-5.4) L 07/23/21 04:35 [place] # (Auto) 0.6 K/mm3 (0.0-0.8) 07/23/21 04:35 Eos # (Auto) 0.1 K/mm3 (0.0-0.4) 07/23/21 04:35 Baso # (Auto) 0.0 K/mm3 (0.0-0.1) 07/23/21 04:35 Add Manual Diff Complete 07/09/21 04:45 Total Counted 100 07/09/21 04:45 Seg Neutrophils % 85.3 % (40.0-70.0) H 07/23/21 04:35 Seg Neuts % (Manual) 82.0 % (40.0-70.0) H 07/09/21 04:45 Band Neutrophils % 1.0 % 05/12/21 04:05 Lymphocytes % (Manual) 13.0 % (13.4-35.0) L 07/09/21 04:45 Monocytes % (Manual) 3.0 % (0.0-7.3) 07/09/21 04:45 Eosinophils % (Manual) 2.0 % (0.0-4.3) 07/09/21 04:45 Nucleated RBC % Not Reportable 07/09/21 04:45 Seg Neutrophils # 9.2 K/mm3 (1.8-7.7) H 07/23/21 04:35 Seg Neutrophils # Man 7.8 K/mm3 (1.8-7.7) H 07/09/21 04:45 Band Neutrophils # 0.0 K/mm3 07/09/21 04:45 Lymphocytes # (Manual) 1.2 K/mm3 (1.2-5.4) 07/09/21 04:45 Abs React Lymphs (Man) 0.0 K/mm3 07/09/21 04:45 Monocytes # (Manual) 0.3 K/mm3 (0.0-0.8) 07/09/21 04:45 Eosinophils # (Manual) 0.2 K/mm3 (0.0-0.4) 07/09/21 04:45 Basophils # (Manual) 0.0 K/mm3 (0.0-0.1) 07/09/21 04:45 Metamyelocytes # 0.0 K/mm3 07/09/21 04:45 Myelocytes # 0.0 K/mm3 07/09/21 04:45 Promyelocytes # 0.0 K/mm3 07/09/21 04:45 Blast Cells # 0.0 K/mm3 07/09/21 04:45 WBC Morphology Not Reportable 07/09/21 04:45 Hypersegmented Neuts Not Reportable 07/09/21 04:45 Hyposegmented Neuts Not Reportable 07/09/21 04:45 Hypogranular Neuts Not Reportable 07/09/21 04:45 Smudge Cells Not Reportable 07/09/21 04:45 Toxic Granulation Not Reportable 07/09/21 04:45 Toxic Vacuolation Not Reportable 07/09/21 04:45 Dohle Bodies Not Reportable 07/09/21 04:45 Pelger-Huet Anomaly Not Reportable 07/09/21 04:45 Janelle Rods Not Reportable 07/09/21 04:45 Platelet Estimate Consistent w auto 07/09/21 04:45 Clumped Platelets Not Reportable 07/09/21 04:45 Plt Clumps, EDTA Not Reportable 07/09/21 04:45 Large Platelets Not Reportable 07/09/21 04:45 Giant Platelets Rare 07/09/21 04:45 Platelet Satelliting Not Reportable 07/09/21 04:45 Plt Morphology Comment Not Reportable 07/09/21 04:45 RBC Morphology Not Reportable 07/09/21 04:45 Dimorphic RBCs Not Reportable 07/09/21 04:45 Polychromasia Not Reportable 07/09/21 04:45 Hypochromasia Few 07/09/21 04:45 Poikilocytosis Not Reportable 07/09/21 04:45 Anisocytosis Not Reportable 07/09/21 04:45 Microcytosis Not Reportable 07/09/21 04:45 Macrocytosis Not Reportable 07/09/21 04:45 Spherocytes Not Reportable 07/09/21 04:45 Pappenheimer Bodies Not Reportable 07/09/21 04:45 Sickle Cells Not Reportable 07/09/21 04:45 Target Cells Not Reportable 07/09/21 04:45 Tear Drop Cells Not Reportable 07/09/21 04:45 Ovalocytes Not Reportable 07/09/21 04:45 Stomatocytes 1+ 07/09/21 04:45 Helmet Cells Not Reportable 07/09/21 04:45 Ahuja-Leland Bodies Not Reportable 07/09/21 04:45 [place] Rings Not Reportable 07/09/21 04:45 Christoval Cells Not Reportable 07/09/21 04:45 Bite Cells Not Reportable 07/09/21 04:45 Crenated Cell Not Reportable 07/09/21 04:45 Elliptocytes Not Reportable 07/09/21 04:45 Acanthocytes (Spur) Not Reportable 07/09/21 04:45 Rouleaux Not Reportable 07/09/21 04:45 Hemoglobin C Crystals Not Reportable 07/09/21 04:45 Schistocytes Not Reportable 07/09/21 04:45 Malaria parasites Not Reportable 07/09/21 04:45 Justin Bodies Not Reportable 07/09/21 04:45 Hem Pathologist Commnt No 07/09/21 04:45 D-Dimer 638.35 ng/mlDDU (0-234) H 07/09/21 04:45 ABG pH 7.417 (7.320-7.450) 07/23/21 18:11 POC ABG pCO2 78.3 mmHg (32.0-48.0) H 07/23/21 18:11 ABG pCO2 85.7 mm Hg 07/22/21 12:05 POC ABG pO2 80.7 mmHg (83-108) L 07/23/21 18:11 ABG pO2 66.1 mm Hg (80.0-90.0) L 07/22/21 12:05 POC ABG HCO3 49.3 07/23/21 18:11 ABG HCO3 45.0 mmol/L (20.0-26.0) H 07/22/21 12:05 ABG O2 Saturation 96.7 (0-100) 07/23/21 18:11 ABG O2 Content 16.8 (0.0-44) 07/22/21 12:05 POC ABG Base Excess 20.5 07/23/21 18:11 ABG Base Excess 15.2 mmol/L (-2.0-3.0) H 07/22/21 12:05 ABG Hemoglobin 12.6 (12.0-17.5) 07/23/21 18:11 ABG Oxyhemoglobin 95.7 (94-98) 07/23/21 18:11 ABG Carboxyhemoglobin 1.9 % (0.0-5.0) 07/22/21 12:05 ABG Methemoglobin 0.3 (0.0-1.5) 07/23/21 18:11 ABG Sodium 134.9 mmol/L (136.0-145.0) L 07/23/21 18:11 ABG Potassium 3.9 mmol/L (3.40-4.50) 07/23/21 18:11 ABG Chloride 89.0 mmol/L (98-107) L 07/23/21 18:11 ABG Glucose 200 mg/dL (65-95) H 07/23/21 18:11 Oxyhemoglobin 91.9 % (95.0-99.0) L 07/22/21 12:05 Carboxyhemoglobin 0.7 (0.5-1.5) 07/23/21 18:11 FiO2 100 % 07/22/21 12:05 FiO2 % 100.0 07/23/21 18:11 Sodium 141 mmol/L (137-145) 07/28/21 07:30 Potassium 3.4 mmol/L (3.6-5.0) L D 07/28/21 07:30 Chloride 91.4 mmol/L (98-107) L 07/28/21 07:30 Carbon Dioxide 39 mmol/L (22-30) H 07/28/21 07:30 Anion Gap 14 mmol/L 07/28/21 07:30 BUN 8 mg/dL (7-17) 07/28/21 07:30 Creatinine < 0.2 mg/dL (0.6-1.2) L 07/28/21 07:30 Estimated GFR > 60 ml/min 07/28/21 07:30 BUN/Creatinine Ratio 40 % 07/28/21 07:30 Glucose 140 mg/dL (65-100) H 07/28/21 07:30 POC Glucose 122 mg/dL (70-105) H 07/28/21 08:43 Hemoglobin A1c 8.5 % (4-6) H 04/18/21 07:36 Calcium 9.1 mg/dL (8.4-10.2) 07/28/21 07:30 Phosphorus 3.70 mg/dL (2.5-4.5) 07/23/21 04:35 Magnesium 2.10 mg/dL (1.7-2.3) 07/23/21 04:35 Ferritin 155.9 ng/mL (10.0-200.0) 07/09/21 04:45 Total Bilirubin < 0.20 mg/dL (0.1-1.2) 07/26/21 09:56 AST 23 units/L (5-40) 07/26/21 09:56 ALT 25 units/L (7-56) 07/26/21 09:56 Alkaline Phosphatase 69 units/L (35-129) 07/26/21 09:56 Lactate Dehydrogenase 475 units/L (91-180) H 06/05/21 05:26 C-Reactive Protein 4.30 mg/dL (0.00-1.30) H 07/09/21 04:45 NT-Pro-B Natriuret Pep 59.45 pg/mL (0-450) 07/07/21 13:40 Total Protein 8.1 g/dL (6.3-8.2) 07/26/21 09:56 Albumin 3.2 g/dL (3.9-5) L 07/26/21 09:56 Albumin/Globulin Ratio 0.7 % 07/26/21 09:56 Triglycerides < 9 mg/dL (2-149) 05/03/21 04:30 Procalcitonin < 0.05 ng/mL (<0.15) 05/23/21 09:50 Arterial Blood Glucose 200 mg/dL (65-95) H 07/23/21 18:11 Arterial Blood Ionized Calcium 4.6 mg/dL (4.6-5.3) 07/23/21 18:11 Coronavirus (PCR) Negative (Negative) 07/25/21 Unknown Amos/IV: Voiding Method External Female Catheter Active Medications - Current Medications Current Medications: Generic Name Dose Route Start Last Admin Trade Name Freq PRN Reason Stop Dose Admin Acetaminophen 650 mg 07/02/21 17:48 07/27/21 22:19 Acetaminophen 325 Mg Tab PO 650 mg Q4H PRN Administration Pain, Mild (1-3) Albuterol 2.5 mg 04/16/21 13:39 04/21/21 20:39 Albuterol 2.5 Mg/3 Ml Nebu IH 2.5 mg Q4HRT PRN Administration Shortness Of Breath Alprazolam 1 mg 07/26/21 22:00 07/27/21 22:20 Alprazolam 1 Mg Tab PO 1 mg BID TUTU Administration Calcium Carbonate/Glycine 500 mg 07/24/21 10:43 Calcium Carbonate 500 Mg Tab Chew PO BID PRN reflux Cholecalciferol 1,000 unit 04/17/21 10:00 07/27/21 10:37 Cholecalciferol (Vit D3) 1000 Unit (25 Mcg) Tab PO 1,000 unit QDAY TUTU Administration Enoxaparin Sodium 40 mg 05/19/21 22:00 07/27/21 22:20 Enoxaparin 40 Mg/0.4 Ml Inj SUB-Q 40 mg QDAY@2200 TUTU Administration Protocol Ibuprofen 600 mg 07/11/21 11:00 07/26/21 11:10 Ibuprofen 600 Mg Tab PO 600 mg Q6H PRN Administration Ear Pain Insulin Glargine 5 units 07/25/21 10:00 07/27/21 10:38 Insulin Glargine 100 Units/Ml SUB-Q 5 units DAILY TUTU Administration Insulin Human Lispro 0 unit 05/18/21 12:00 07/27/21 22:31 Insulin Lispro 100 Unit/Ml SUB-Q Not Given ACHS [facility] Protocol Ondansetron HCl 4 mg 04/16/21 14:00 05/30/21 10:07 Ondansetron 4 Mg/2 Ml Inj IV 4 mg Q8H PRN Administration Nausea And Vomiting Polyethylene Glycol 17 gm 07/16/21 20:00 Polyethylene Glycol 3350 17 Gm Powder PO QDAY PRN Constipation Sodium Chloride 10 ml 04/16/21 13:39 07/27/21 10:47 Sodium Chloride 0.9% 10 Ml Flush Syringe IV 10 ml PRN PRN Administration LINE FLUSH Zinc Sulfate 220 mg 04/16/21 22:00 07/27/21 22:20 Zinc Sulfate 220 Mg Cap PO 220 mg BID TUTU Administration Nutrition/Malnutrition Assess - Dietary Evaluation Nutrition/Malnutrition Findings: Nutrition Notes Start: 04/23/21 07:41 Freq: Status: Active Protocol: Document 07/03/21 16:54 GB (Rec: 07/03/21 17:11 GB [email or web address]) Nutrition Notes Initial or Follow up Reassessment Current Diagnosis Respiratory Failure Other Pertinent Diagnosis oral thrush, COVID-19 pneu Current Diet consistent carbohydrate Labs/Tests 07/03: creatinine 0.3, K 3.2 Pertinent Medications Vit C, Vit D3, D5 (PRN), Prednisone, NaCl, Zn Sulfate Height 4 ft 11.84 in Weight 60.3 kg [place] Body Weight (kg) 45.09 BMI 26.1 Weight change and time frame 04/16/21: 74.843kg 05/17/21: 68.1kg 06/16/21: 60.3kg change of -14.54kg for -19.43% in 60 days. Per MD note: pt has been diuresed thorughout stay. Weight Status Overweight Subjective/Other Information MD notes 07/03: pt showing improvement, prednisone weaning down, possible weaning of O2. Last BM: 07/02 PO intake recorded at 50-100% Percent of energy/protein needs met: PO intake of meals meet 75% or greater of EEN Burn Absent Trauma Absent GI Symptoms None Food Allergy No Skin Integrity/Comment skin tear rt/lt buttocks Current % PO Good (75-100%) Minimum of two criteria No #3 Nutrition Diagnosis No nutrition diagnosis at this time Etiology respiratory failure As Evidenced by Signs and Symptoms recovering, good po, weight loss r/t diurese therapy #2 Nutrition Diagnosis Malnutrition Comments: Wt loss due to diurese for most of stay. PO intake is recorded at 75- 100% Etiology acute illness As Evidenced by Signs and Symptoms <50% EER in >5 days, >5% wt loss in 1 month Diagnosis Progress(for reassessment Resolved documentation) #1 Nutrition Diagnosis Inadequate oral intake Etiology ARF As Evidenced by Signs and Symptoms pt continues to meet 100%/93% of kcal/protein needs Diagnosis Progress(for reassessment Resolved documentation) Is patient on ventilator? No Is Patient Ambulatory and/or Out of Bed Yes REE-([facility]-ambulatory/OOB) [ 1491.022 [id number]] Kcal/Kg value to use for calculation 25 Approximate Energy Requirements Using 1508 kcal/Kg Calculation Used for Recommendations Kcal/kg Additional Notes Pro needs 1-1.2g/kg @ 60k -72g/day Fluid needs 1ml/kcal or per MD Nutrition Intervention Change Diet Order: continue Nutrition Support: n/a Add Supplement/Snack (indicate name/kcal n/a /protein ) Goal #1 PO intake of meals to be 75% or greater daily for LOS Goal #2 Weight to stabilize +/-3% current weight for LOS Follow-Up By: 08/07/21 Additional Comments f/u: po intake, weight
[2021-07-28] MEDS: INSULIN LISPRO 100 UNIT/ML SUB-Q SCH ×4 (09:38→22:47)
[2021-07-28] MEDS: ALPRAZolam 1 MG TAB PO SCH ×2 (09:44→22:46)
[2021-07-28] MEDS: INSULIN GLARGINE 100 UNITS/ML SUB-Q SCH (09:44)
[2021-07-28] MEDS: CHOLECALCIFEROL (VIT D3) 1000 UNIT (25 mcg) TAB PO SCH (09:44)
[2021-07-28] MEDS: ZINC SULFATE 220 MG CAP PO SCH ×2 (09:44→22:46)
--- NOTE | 2021-07-28 21:20 | Progress Note ---
Assessment and Plan Imp: 1. Covid-19 2. Viral pneumonia 3. Acute respiratory failure, hypoxia Rec: 1. S/p Remdesivir, Actemra 2. Off steroids 3. SubQ Lovenox 4. Proning 5. Wean HFNC to keep sats 88% or > 6. Guarded prognosis Subjective Date of service: 07/28/21 Principal diagnosis: Covid-19 Interval history: No events. On 40LPM and 75% FiO2 HFNC. + SOB. No other complaints. Active Medications Acetaminophen (Acetaminophen 325 Mg Tab) 650 mg PO Q4H PRN PRN Reason: Pain, Mild (1-3) Last Admin: 07/27/21 22:19 Dose: 650 mg Documented by: Albuterol (Albuterol 2.5 Mg/3 Ml Nebu) 2.5 mg IH Q4HRT PRN PRN Reason: Shortness Of Breath Last Admin: 04/21/21 20:39 Dose: 2.5 mg Documented by: Alprazolam (Alprazolam 1 Mg Tab) 1 mg PO BID [facility] Last Admin: 07/28/21 09:44 Dose: 1 mg Documented by: Calcium Carbonate/Glycine (Calcium Carbonate 500 Mg Tab Chew) 500 mg PO BID PRN PRN Reason: reflux Cholecalciferol (Cholecalciferol (Vit D3) 1000 Unit (25 Mcg) Tab) 1,000 unit PO QDAY [facility] Last Admin: 07/28/21 09:44 Dose: 1,000 unit Documented by: Enoxaparin Sodium (Enoxaparin 40 Mg/0.4 Ml Inj) 40 mg SUB-Q QDAY@2200 [facility]; Prot ocol Last Admin: 07/27/21 22:20 Dose: 40 mg Documented by: Ibuprofen (Ibuprofen 600 Mg Tab) 600 mg PO Q6H PRN PRN Reason: Ear Pain Last Admin: 07/26/21 11:10 Dose: 600 mg Documented by: Insulin Glargine (Insulin Glargine 100 Units/Ml) 5 units SUB-Q DAILY [facility] Last Admin: 07/28/21 09:44 Dose: 5 units Documented by: Insulin Human Lispro (Insulin Lispro 100 Unit/Ml) 0 unit SUB-Q [facility]; Protocol Last Admin: 07/28/21 16:42 Dose: 4 unit Documented by: Ondansetron HCl (Ondansetron 4 Mg/2 Ml Inj) 4 mg IV Q8H PRN PRN Reason: Nausea And Vomiting Last Admin: 05/30/21 10:07 Dose: 4 mg Documented by: Polyethylene Glycol (Polyethylene Glycol 3350 17 Gm Powder) 17 gm PO QDAY PRN PRN Reason: Constipation Sodium Chloride (Sodium Chloride 0.9% 10 Ml Flush Syringe) 10 ml IV PRN PRN PRN Reason: LINE FLUSH Last Admin: 07/27/21 10:47 Dose: 10 ml Documented by: Zinc Sulfate (Zinc Sulfate 220 Mg Cap) 220 mg PO BID [facility] Last Admin: 07/28/21 09:44 Dose: 220 mg Documented by: Objective Vital Signs - 12hr 07/28/21 07/28/21 07/28/21 10:00 11:00 12:00 Temperature 97.8 F Pulse Rate 108 H 111 H 111 H Pulse Rate [ 92 H From Monitor] Respiratory 33 H 30 H 36 H Rate Blood Pressure 106/68 121/64 121/64 O2 Sat by Pulse 90 95 95 Oximetry 07/28/21 07/28/21 07/28/21 13:00 14:00 15:00 Temperature 97.7 F Pulse Rate 114 H 117 H 116 H Pulse Rate [ From Monitor] Respiratory 39 H 40 H 37 H Rate Blood Pressure 130/66 116/47 118/59 O2 Sat by Pulse 96 87 89 Oximetry 07/28/21 07/28/21 07/28/21 16:00 16:25 17:00 Temperature Pulse Rate 114 H 120 H Pulse Rate [ From Monitor] Respiratory 37 H 17 Rate Blood Pressure 119/71 120/84 O2 Sat by Pulse 96 94 91 Oximetry 07/28/21 07/28/21 07/28/21 18:00 19:31 19:54 Temperature 97.8 F 97.7 F Pulse Rate 118 H Pulse Rate [ From Monitor] Respiratory 41 H Rate Blood Pressure 129/76 O2 Sat by Pulse 85 92 Oximetry Constitutional: no acute distress, alert, other (on hiflo o2) Eyes: non-icteric ENT: oropharynx moist Neck: supple Effort: normal Ascultation: Bilateral: diminished breath sounds Cardiovascular: regular rate and rhythm Gastrointestinal: normoactive bowel sounds, soft, non-tender, non-distended Integumentary: normal Extremities: no cyanosis, no edema, pink and warm Neurologic: non-focal exam, pupils equal and round Psychiatric: mood appropriate, affect normal CBC and BMP: 07/23/21 04:35 07/28/21 07:30 ABG, PT/INR, D-dimer: ABG ABG pH 7.417 (7.320-7.450) 07/23/21 18:11 POC ABG pCO2 78.3 mmHg (32.0-48.0) H 07/23/21 18:11 ABG pCO2 85.7 mm Hg 07/22/21 12:05 POC ABG pO2 80.7 mmHg (83-108) L 07/23/21 18:11 ABG pO2 66.1 mm Hg (80.0-90.0) L 07/22/21 12:05 POC ABG HCO3 49.3 07/23/21 18:11 ABG O2 Saturation 96.7 (0-100) 07/23/21 18:11 PT/INR, D-dimer D-Dimer 638.35 ng/mlDDU (0-234) H 07/09/21 04:45 Abnormal lab findings: Abnormal Labs 04/16/21 04/16/21 04/16/21 11:42 11:42 11:42 WBC MCV MCH MCHC RDW 16.1 H Lymph % (Auto) 7.8 L Carver % (Auto) Eos % (Auto) Lymph # (Auto) 0.8 L Carver # (Auto) Eos # (Auto) Baso # (Auto) Seg Neutrophils % 87.7 H Seg Neuts % (Manual) Lymphocytes % (Manual) Seg Neutrophils # 8.5 H Seg Neutrophils # Man Lymphocytes # (Manual) D-Dimer 338.70 H ABG pH POC ABG pCO2 POC ABG pO2 ABG pO2 ABG HCO3 ABG O2 Saturation ABG Base Excess ABG Oxyhemoglobin ABG Sodium ABG Chloride ABG Glucose Oxyhemoglobin Carboxyhemoglobin Sodium Potassium Chloride Carbon Dioxide BUN Creatinine Glucose 194 H POC Glucose Hemoglobin A1c Magnesium Ferritin AST ALT Alkaline Phosphatase Lactate Dehydrogenase C-Reactive Protein Total Protein 8.4 H Albumin 3.8 L Arterial Blood Glucose Coronavirus (PCR) 04/16/21 04/16/21 04/17/21 11:42 11:42 03:50 WBC MCV MCH MCHC RDW 16.0 H Lymph % (Auto) 7.7 L Carver % (Auto) Eos % (Auto) Lymph # (Auto) 0.6 L Carver # (Auto) Eos # (Auto) Baso # (Auto) Seg Neutrophils % 89.8 H Seg Neuts % (Manual) Lymphocytes % (Manual) Seg Neutrophils # Seg Neutrophils # Man Lymphocytes # (Manual) D-Dimer ABG pH POC ABG pCO2 POC ABG pO2 ABG pO2 ABG HCO3 ABG O2 Saturation ABG Base Excess ABG Oxyhemoglobin ABG Sodium ABG Chloride ABG Glucose Oxyhemoglobin Carboxyhemoglobin Sodium Potassium Chloride Carbon Dioxide BUN Creatinine Glucose 195 H POC Glucose Hemoglobin A1c Magnesium Ferritin 254.3 H AST ALT Alkaline Phosphatase Lactate Dehydrogenase 359 H C-Reactive Protein 15.20 H Total Protein Albumin Arterial Blood Glucose Coronavirus (PCR) 04/17/21 04/17/21 04/17/21 03:50 08:26 08:26 WBC MCV MCH MCHC RDW Lymph % (Auto) Carver % (Auto) Eos % (Auto) Lymph # (Auto) Carver # (Auto) Eos # (Auto) Baso # (Auto) Seg Neutrophils % Seg Neuts % (Manual) Lymphocytes % (Manual) Seg Neutrophils # Seg Neutrophils # Man Lymphocytes # (Manual) D-Dimer 262.48 H ABG pH POC ABG pCO2 POC ABG pO2 ABG pO2 ABG HCO3 ABG O2 Saturation ABG Base Excess ABG Oxyhemoglobin ABG Sodium ABG Chloride ABG Glucose Oxyhemoglobin Carboxyhemoglobin Sodium Potassium Chloride Carbon Dioxide BUN 20 H Creatinine 0.5 L Glucose 249 H 225 H POC Glucose Hemoglobin A1c Magnesium Ferritin AST ALT Alkaline Phosphatase Lactate Dehydrogenase 338 H C-Reactive Protein 17.20 H Total Protein Albumin 3.2 L Arterial Blood Glucose Coronavirus (PCR) 04/17/21 04/17/21 04/17/21 08:26 15:04 Unknown WBC MCV MCH MCHC RDW Lymph % (Auto) Carver % (Auto) Eos % (Auto) Lymph # (Auto) Carver # (Auto) Eos # (Auto) Baso # (Auto) Seg Neutrophils % Seg Neuts % (Manual) Lymphocytes % (Manual) Seg Neutrophils # Seg Neutrophils # Man Lymphocytes # (Manual) D-Dimer ABG pH POC ABG pCO2 POC ABG pO2 ABG pO2 ABG HCO3 ABG O2 Saturation ABG Base Excess ABG Oxyhemoglobin ABG Sodium ABG Chloride ABG Glucose Oxyhemoglobin Carboxyhemoglobin Sodium Potassium Chloride Carbon Dioxide BUN 20 H Creatinine 0.5 L Glucose 246 H POC Glucose Hemoglobin A1c Magnesium Ferritin 392.0 H AST ALT Alkaline Phosphatase Lactate Dehydrogenase C-Reactive Protein Total Protein 8.3 H Albumin 3.1 L Arterial Blood Glucose Coronavirus (PCR) Positive A 04/18/21 04/18/21 04/18/21 05:06 05:06 07:36 WBC 11.6 H MCV MCH MCHC RDW 16.1 H Lymph % (Auto) Carver % (Auto) Eos % (Auto) Lymph # (Auto) Carver # (Auto) Eos # (Auto) Baso # (Auto) Seg Neutrophils % Seg Neuts % (Manual) Lymphocytes % (Manual) Seg Neutrophils # Seg Neutrophils # Man Lymphocytes # (Manual) D-Dimer ABG pH POC ABG pCO2 POC ABG pO2 ABG pO2 ABG HCO3 ABG O2 Saturation ABG Base Excess ABG Oxyhemoglobin ABG Sodium ABG Chloride ABG Glucose Oxyhemoglobin Carboxyhemoglobin Sodium Potassium 5.2 H Chloride Carbon Dioxide BUN 22 H Creatinine 0.5 L Glucose 315 H POC Glucose Hemoglobin A1c 8.5 H Magnesium Ferritin AST ALT Alkaline Phosphatase Lactate Dehydrogenase C-Reactive Protein Total Protein Albumin 3.3 L Arterial Blood Glucose Coronavirus (PCR) 04/18/21 04/18/21 04/18/21 11:59 16:43 23:24 WBC MCV MCH MCHC RDW Lymph % (Auto) Carver % (Auto) Eos % (Auto) Lymph # (Auto) Carver # (Auto) Eos # (Auto) Baso # (Auto) Seg Neutrophils % Seg Neuts % (Manual) Lymphocytes % (Manual) Seg Neutrophils # Seg Neutrophils # Man Lymphocytes # (Manual) D-Dimer ABG pH POC ABG pCO2 POC ABG pO2 ABG pO2 ABG HCO3 ABG O2 Saturation ABG Base Excess ABG Oxyhemoglobin ABG Sodium ABG Chloride ABG Glucose Oxyhemoglobin Carboxyhemoglobin Sodium Potassium Chloride Carbon Dioxide BUN Creatinine Glucose POC Glucose 284 H 273 H 290 H Hemoglobin A1c Magnesium Ferritin AST ALT Alkaline Phosphatase Lactate Dehydrogenase C-Reactive Protein Total Protein Albumin Arterial Blood Glucose Coronavirus (PCR) 04/19/21 04/19/21 04/19/21 04:19 04:19 08:10 WBC MCV MCH MCHC RDW 15.7 H Lymph % (Auto) Carver % (Auto) Eos % (Auto) Lymph # (Auto) Carver # (Auto) Eos # (Auto) Baso # (Auto) Seg Neutrophils % Seg Neuts % (Manual) Lymphocytes % (Manual) Seg Neutrophils # Seg Neutrophils # Man Lymphocytes # (Manual) D-Dimer ABG pH POC ABG pCO2 POC ABG pO2 ABG pO2 ABG HCO3 ABG O2 Saturation ABG Base Excess ABG Oxyhemoglobin ABG Sodium ABG Chloride ABG Glucose Oxyhemoglobin Carboxyhemoglobin Sodium Potassium Chloride Carbon Dioxide BUN 27 H Creatinine 0.4 L Glucose 184 H POC Glucose 194 H Hemoglobin A1c Magnesium Ferritin AST ALT Alkaline Phosphatase Lactate Dehydrogenase C-Reactive Protein Total Protein Albumin 3.1 L Arterial Blood Glucose Coronavirus (PCR) 04/19/21 04/19/21 04/19/21 11:38 16:25 22:04 WBC MCV MCH MCHC RDW Lymph % (Auto) Carver % (Auto) Eos % (Auto) Lymph # (Auto) Carver # (Auto) Eos # (Auto) Baso # (Auto) Seg Neutrophils % Seg Neuts % (Manual) Lymphocytes % (Manual) Seg Neutrophils # Seg Neutrophils # Man Lymphocytes # (Manual) D-Dimer ABG pH POC ABG pCO2 POC ABG pO2 ABG pO2 ABG HCO3 ABG O2 Saturation ABG Base Excess ABG Oxyhemoglobin ABG Sodium ABG Chloride ABG Glucose Oxyhemoglobin Carboxyhemoglobin Sodium Potassium Chloride Carbon Dioxide BUN Creatinine Glucose POC Glucose 224 H 297 H 251 H Hemoglobin A1c Magnesium Ferritin AST ALT Alkaline Phosphatase Lactate Dehydrogenase C-Reactive Protein Total Protein Albumin Arterial Blood Glucose Coronavirus (PCR) 04/20/21 04/20/21 04/20/21 05:28 08:43 16:21 WBC MCV MCH MCHC RDW Lymph % (Auto) Carver % (Auto) Eos % (Auto) Lymph # (Auto) Carver # (Auto) Eos # (Auto) Baso # (Auto) Seg Neutrophils % Seg Neuts % (Manual) Lymphocytes % (Manual) Seg Neutrophils # Seg Neutrophils # Man Lymphocytes # (Manual) D-Dimer ABG pH POC ABG pCO2 POC ABG pO2 ABG pO2 ABG HCO3 ABG O2 Saturation ABG Base Excess ABG Oxyhemoglobin ABG Sodium ABG Chloride ABG Glucose Oxyhemoglobin Carboxyhemoglobin Sodium Potassium Chloride Carbon Dioxide BUN 27 H Creatinine Glucose 192 H POC Glucose 173 H 253 H Hemoglobin A1c Magnesium Ferritin AST ALT Alkaline Phosphatase Lactate Dehydrogenase C-Reactive Protein Total Protein Albumin 3.0 L Arterial Blood Glucose Coronavirus (PCR) 04/21/21 04/21/21 04/21/21 07:58 12:05 16:08 WBC MCV MCH MCHC RDW Lymph % (Auto) Carver % (Auto) Eos % (Auto) Lymph # (Auto) Carver # (Auto) Eos # (Auto) Baso # (Auto) Seg Neutrophils % Seg Neuts % (Manual) Lymphocytes % (Manual) Seg Neutrophils # Seg Neutrophils # Man Lymphocytes # (Manual) D-Dimer ABG pH POC ABG pCO2 POC ABG pO2 ABG pO2 ABG HCO3 ABG O2 Saturation ABG Base Excess ABG Oxyhemoglobin ABG Sodium ABG Chloride ABG Glucose Oxyhemoglobin Carboxyhemoglobin Sodium Potassium Chloride Carbon Dioxide BUN Creatinine Glucose POC Glucose 140 H 252 H 214 H Hemoglobin A1c Magnesium Ferritin AST ALT Alkaline Phosphatase Lactate Dehydrogenase C-Reactive Protein Total Protein Albumin Arterial Blood Glucose Coronavirus (PCR) 04/21/21 04/22/21 04/22/21 21:42 08:37 12:01 WBC MCV MCH MCHC RDW Lymph % (Auto) Carver % (Auto) Eos % (Auto) Lymph # (Auto) Carver # (Auto) Eos # (Auto) Baso # (Auto) Seg Neutrophils % Seg Neuts % (Manual) Lymphocytes % (Manual) Seg Neutrophils # Seg Neutrophils # Man Lymphocytes # (Manual) D-Dimer ABG pH 7.457 H POC ABG pCO2 POC ABG pO2 49.4 L ABG pO2 ABG HCO3 ABG O2 Saturation ABG Base Excess ABG Oxyhemoglobin 85.6 L ABG Sodium ABG Chloride ABG Glucose 121 H Oxyhemoglobin Carboxyhemoglobin 0.3 L Sodium Potassium Chloride Carbon Dioxide BUN Creatinine Glucose POC Glucose 162 H 227 H Hemoglobin A1c Magnesium Ferritin AST ALT Alkaline Phosphatase Lactate Dehydrogenase C-Reactive Protein Total Protein Albumin Arterial Blood Glucose 121 H Coronavirus (PCR) 04/22/21 04/22/21 04/23/21 16:26 22:23 04:52 WBC MCV MCH MCHC RDW 15.7 H Lymph % (Auto) Carver % (Auto) Eos % (Auto) Lymph # (Auto) Carver # (Auto) Eos # (Auto) Baso # (Auto) Seg Neutrophils % Seg Neuts % (Manual) Lymphocytes % (Manual) Seg Neutrophils # Seg Neutrophils # Man Lymphocytes # (Manual) D-Dimer ABG pH POC ABG pCO2 POC ABG pO2 ABG pO2 ABG HCO3 ABG O2 Saturation ABG Base Excess ABG Oxyhemoglobin ABG Sodium ABG Chloride ABG Glucose Oxyhemoglobin Carboxyhemoglobin Sodium Potassium Chloride Carbon Dioxide BUN Creatinine Glucose POC Glucose 200 H 136 H Hemoglobin A1c Magnesium Ferritin AST ALT Alkaline Phosphatase Lactate Dehydrogenase C-Reactive Protein Total Protein Albumin Arterial Blood Glucose Coronavirus (PCR) 04/23/21 04/23/21 04/23/21 04:52 12:06 17:41 WBC MCV MCH MCHC RDW Lymph % (Auto) Carver % (Auto) Eos % (Auto) Lymph # (Auto) Carver # (Auto) Eos # (Auto) Baso # (Auto) Seg Neutrophils % Seg Neuts % (Manual) Lymphocytes % (Manual) Seg Neutrophils # Seg Neutrophils # Man Lymphocytes # (Manual) D-Dimer ABG pH POC ABG pCO2 POC ABG pO2 ABG pO2 ABG HCO3 ABG O2 Saturation ABG Base Excess ABG Oxyhemoglobin ABG Sodium ABG Chloride ABG Glucose Oxyhemoglobin Carboxyhemoglobin Sodium 136 L Potassium Chloride 97.7 L Carbon Dioxide BUN 23 H Creatinine Glucose 101 H POC Glucose 202 H 169 H Hemoglobin A1c Magnesium Ferritin AST 46 H ALT Alkaline Phosphatase Lactate Dehydrogenase C-Reactive Protein Total Protein Albumin 3.3 L Arterial Blood Glucose Coronavirus (PCR) 04/23/21 04/24/21 04/24/21 23:08 05:17 08:38 WBC MCV MCH MCHC RDW Lymph % (Auto) Carver % (Auto) Eos % (Auto) Lymph # (Auto) Carver # (Auto) Eos # (Auto) Baso # (Auto) Seg Neutrophils % Seg Neuts % (Manual) Lymphocytes % (Manual) Seg Neutrophils # Seg Neutrophils # Man Lymphocytes # (Manual) D-Dimer ABG pH POC ABG pCO2 POC ABG pO2 ABG pO2 ABG HCO3 ABG O2 Saturation ABG Base Excess ABG Oxyhemoglobin ABG Sodium ABG Chloride ABG Glucose Oxyhemoglobin Carboxyhemoglobin Sodium Potassium Chloride Carbon Dioxide BUN Creatinine Glucose POC Glucose 111 H 108 H 126 H Hemoglobin A1c Magnesium Ferritin AST ALT Alkaline Phosphatase Lactate Dehydrogenase C-Reactive Protein Total Protein Albumin Arterial Blood Glucose Coronavirus (PCR) 04/24/21 04/24/21 04/24/21 11:54 17:57 21:23 WBC MCV MCH MCHC RDW Lymph % (Auto) Carver % (Auto) Eos % (Auto) Lymph # (Auto) Carver # (Auto) Eos # (Auto) Baso # (Auto) Seg Neutrophils % Seg Neuts % (Manual) Lymphocytes % (Manual) Seg Neutrophils # Seg Neutrophils # Man Lymphocytes # (Manual) D-Dimer ABG pH POC ABG pCO2 POC ABG pO2 ABG pO2 ABG HCO3 ABG O2 Saturation ABG Base Excess ABG Oxyhemoglobin ABG Sodium ABG Chloride ABG Glucose Oxyhemoglobin Carboxyhemoglobin Sodium Potassium Chloride Carbon Dioxide BUN Creatinine Glucose POC Glucose 147 H 177 H 138 H Hemoglobin A1c Magnesium Ferritin AST ALT Alkaline Phosphatase Lactate Dehydrogenase C-Reactive Protein Total Protein Albumin Arterial Blood Glucose Coronavirus (PCR) 04/25/21 04/25/21 04/25/21 07:06 11:23 15:43 WBC MCV MCH MCHC RDW Lymph % (Auto) Carver % (Auto) Eos % (Auto) Lymph # (Auto) Carver # (Auto) Eos # (Auto) Baso # (Auto) Seg Neutrophils % Seg Neuts % (Manual) Lymphocytes % (Manual) Seg Neutrophils # Seg Neutrophils # Man Lymphocytes # (Manual) D-Dimer ABG pH POC ABG pCO2 POC ABG pO2 ABG pO2 ABG HCO3 ABG O2 Saturation ABG Base Excess ABG Oxyhemoglobin ABG Sodium ABG Chloride ABG Glucose Oxyhemoglobin Carboxyhemoglobin Sodium Potassium Chloride Carbon Dioxide BUN Creatinine Glucose POC Glucose 147 H 169 H 227 H Hemoglobin A1c Magnesium Ferritin AST ALT Alkaline Phosphatase Lactate Dehydrogenase C-Reactive Protein Total Protein Albumin Arterial Blood Glucose Coronavirus (PCR) 04/25/21 04/26/21 04/26/21 21:22 02:45 05:15 WBC MCV MCH MCHC RDW Lymph % (Auto) Carver % (Auto) Eos % (Auto) Lymph # (Auto) Carver # (Auto) Eos # (Auto) Baso # (Auto) Seg Neutrophils % Seg Neuts % (Manual) Lymphocytes % (Manual) Seg Neutrophils # Seg Neutrophils # Man Lymphocytes # (Manual) D-Dimer ABG pH POC ABG pCO2 POC ABG pO2 70.7 L ABG pO2 ABG HCO3 ABG O2 Saturation ABG Base Excess ABG Oxyhemoglobin 93.0 L ABG Sodium 132.7 L ABG Chloride ABG Glucose 115 H Oxyhemoglobin Carboxyhemoglobin Sodium Potassium Chloride 95.8 L Carbon Dioxide 32 H BUN 20 H Creatinine Glucose 102 H POC Glucose 196 H Hemoglobin A1c Magnesium Ferritin AST ALT Alkaline Phosphatase Lactate Dehydrogenase C-Reactive Protein Total Protein Albumin Arterial Blood Glucose 115 H Coronavirus (PCR) 04/26/21 04/26/21 04/26/21 11:49 16:09 21:07 WBC MCV MCH MCHC RDW Lymph % (Auto) Carver % (Auto) Eos % (Auto) Lymph # (Auto) Carver # (Auto) Eos # (Auto) Baso # (Auto) Seg Neutrophils % Seg Neuts % (Manual) Lymphocytes % (Manual) Seg Neutrophils # Seg Neutrophils # Man Lymphocytes # (Manual) D-Dimer ABG pH POC ABG pCO2 POC ABG pO2 ABG pO2 ABG HCO3 ABG O2 Saturation ABG Base Excess ABG Oxyhemoglobin ABG Sodium ABG Chloride ABG Glucose Oxyhemoglobin Carboxyhemoglobin Sodium Potassium Chloride Carbon Dioxide BUN Creatinine Glucose POC Glucose 114 H 188 H 136 H Hemoglobin A1c Magnesium Ferritin AST ALT Alkaline Phosphatase Lactate Dehydrogenase C-Reactive Protein Total Protein Albumin Arterial Blood Glucose Coronavirus (PCR) 04/27/21 04/27/21 04/28/21 17:34 22:12 08:26 WBC MCV MCH MCHC RDW Lymph % (Auto) Carver % (Auto) Eos % (Auto) Lymph # (Auto) Carver # (Auto) Eos # (Auto) Baso # (Auto) Seg Neutrophils % Seg Neuts % (Manual) Lymphocytes % (Manual) Seg Neutrophils # Seg Neutrophils # Man Lymphocytes # (Manual) D-Dimer ABG pH POC ABG pCO2 POC ABG pO2 ABG pO2 ABG HCO3 ABG O2 Saturation ABG Base Excess ABG Oxyhemoglobin ABG Sodium ABG Chloride ABG Glucose Oxyhemoglobin Carboxyhemoglobin Sodium Potassium Chloride Carbon Dioxide BUN Creatinine Glucose POC Glucose 128 H 159 H 69 L Hemoglobin A1c Magnesium Ferritin AST ALT Alkaline Phosphatase Lactate Dehydrogenase C-Reactive Protein Total Protein Albumin Arterial Blood Glucose Coronavirus (PCR) 04/28/21 04/28/21 04/29/21 12:22 21:11 06:05 WBC MCV MCH MCHC RDW Lymph % (Auto) Carver % (Auto) Eos % (Auto) Lymph # (Auto) Carver # (Auto) Eos # (Auto) Baso # (Auto) Seg Neutrophils % Seg Neuts % (Manual) Lymphocytes % (Manual) Seg Neutrophils # Seg Neutrophils # Man Lymphocytes # (Manual) D-Dimer ABG pH POC ABG pCO2 POC ABG pO2 ABG pO2 ABG HCO3 ABG O2 Saturation ABG Base Excess ABG Oxyhemoglobin ABG Sodium ABG Chloride ABG Glucose Oxyhemoglobin Carboxyhemoglobin Sodium 132 L Potassium Chloride 94.4 L Carbon Dioxide BUN Creatinine 0.2 L D Glucose 140 H POC Glucose 141 H 171 H Hemoglobin A1c Magnesium Ferritin AST ALT Alkaline Phosphatase Lactate Dehydrogenase C-Reactive Protein Total Protein Albumin Arterial Blood Glucose Coronavirus (PCR) 04/29/21 04/29/21 04/29/21 06:05 07:24 11:36 WBC MCV MCH MCHC 35 H RDW 15.9 H Lymph % (Auto) Carver % (Auto) Eos % (Auto) Lymph # (Auto) Carver # (Auto) Eos # (Auto) Baso # (Auto) Seg Neutrophils % Seg Neuts % (Manual) Lymphocytes % (Manual) Seg Neutrophils # Seg Neutrophils # Man Lymphocytes # (Manual) D-Dimer ABG pH POC ABG pCO2 POC ABG pO2 ABG pO2 ABG HCO3 ABG O2 Saturation ABG Base Excess ABG Oxyhemoglobin ABG Sodium ABG Chloride ABG Glucose Oxyhemoglobin Carboxyhemoglobin Sodium Potassium Chloride Carbon Dioxide BUN Creatinine Glucose POC Glucose 141 H 220 H Hemoglobin A1c Magnesium Ferritin AST ALT Alkaline Phosphatase Lactate Dehydrogenase C-Reactive Protein Total Protein Albumin Arterial Blood Glucose Coronavirus (PCR) 04/29/21 04/29/21 04/29/21 14:23 15:30 17:06 WBC MCV MCH MCHC RDW Lymph % (Auto) Carver % (Auto) Eos % (Auto) Lymph # (Auto) Carver # (Auto) Eos # (Auto) Baso # (Auto) Seg Neutrophils % Seg Neuts % (Manual) Lymphocytes % (Manual) Seg Neutrophils # Seg Neutrophils # Man Lymphocytes # (Manual) D-Dimer ABG pH POC ABG pCO2 POC ABG pO2 ABG pO2 52.6 L ABG HCO3 ABG O2 Saturation 86.4 L ABG Base Excess ABG Oxyhemoglobin ABG Sodium ABG Chloride ABG Glucose Oxyhemoglobin 84.6 L Carboxyhemoglobin Sodium Potassium Chloride Carbon Dioxide BUN Creatinine Glucose POC Glucose 173 H 158 H Hemoglobin A1c Magnesium Ferritin AST ALT Alkaline Phosphatase Lactate Dehydrogenase C-Reactive Protein Total Protein Albumin Arterial Blood Glucose Coronavirus (PCR) 04/29/21 04/30/21 04/30/21 21:27 07:16 08:00 WBC MCV MCH MCHC RDW 16.1 H Lymph % (Auto) Carver % (Auto) Eos % (Auto) Lymph # (Auto) Carver # (Auto) Eos # (Auto) Baso # (Auto) Seg Neutrophils % Seg Neuts % (Manual) Lymphocytes % (Manual) Seg Neutrophils # Seg Neutrophils # Man Lymphocytes # (Manual) D-Dimer ABG pH POC ABG pCO2 POC ABG pO2 ABG pO2 ABG HCO3 ABG O2 Saturation ABG Base Excess ABG Oxyhemoglobin ABG Sodium ABG Chloride ABG Glucose Oxyhemoglobin Carboxyhemoglobin Sodium Potassium Chloride Carbon Dioxide BUN Creatinine Glucose POC Glucose 244 H 175 H Hemoglobin A1c Magnesium Ferritin AST ALT Alkaline Phosphatase Lactate Dehydrogenase C-Reactive Protein Total Protein Albumin Arterial Blood Glucose Coronavirus (PCR) 04/30/21 04/30/21 04/30/21 08:00 08:00 11:03 WBC MCV MCH MCHC RDW Lymph % (Auto) Carver % (Auto) Eos % (Auto) Lymph # (Auto) Carver # (Auto) Eos # (Auto) Baso # (Auto) Seg Neutrophils % Seg Neuts % (Manual) Lymphocytes % (Manual) Seg Neutrophils # Seg Neutrophils # Man Lymphocytes # (Manual) D-Dimer 1796.87 H ABG pH POC ABG pCO2 POC ABG pO2 ABG pO2 ABG HCO3 ABG O2 Saturation ABG Base Excess ABG Oxyhemoglobin ABG Sodium ABG Chloride ABG Glucose Oxyhemoglobin Carboxyhemoglobin Sodium 135 L Potassium Chloride 96.3 L Carbon Dioxide BUN Creatinine 0.2 L Glucose 153 H POC Glucose 183 H Hemoglobin A1c Magnesium Ferritin AST 41 H ALT 76 H Alkaline Phosphatase 160 H Lactate Dehydrogenase 522 H C-Reactive Protein Total Protein 6.1 L Albumin 3.1 L Arterial Blood Glucose Coronavirus (PCR) 04/30/21 04/30/21 05/01/21 17:04 22:17 05:39 WBC MCV MCH MCHC RDW Lymph % (Auto) Carver % (Auto) Eos % (Auto) Lymph # (Auto) Carver # (Auto) Eos # (Auto) Baso # (Auto) Seg Neutrophils % Seg Neuts % (Manual) Lymphocytes % (Manual) Seg Neutrophils # Seg Neutrophils # Man Lymphocytes # (Manual) D-Dimer ABG pH POC ABG pCO2 POC ABG pO2 ABG pO2 ABG HCO3 ABG O2 Saturation ABG Base Excess ABG Oxyhemoglobin ABG Sodium ABG Chloride ABG Glucose Oxyhemoglobin Carboxyhemoglobin Sodium 133 L Potassium Chloride 92.1 L Carbon Dioxide BUN 24 H Creatinine 0.4 L D Glucose 269 H POC Glucose 167 H 208 H Hemoglobin A1c Magnesium Ferritin AST ALT 66 H Alkaline Phosphatase 142 H Lactate Dehydrogenase C-Reactive Protein Total Protein Albumin 3.2 L Arterial Blood Glucose Coronavirus (PCR) 05/01/21 05/01/21 05/01/21 05:39 05:39 07:45 WBC MCV MCH MCHC RDW 16.0 H Lymph % (Auto) Carver % (Auto) Eos % (Auto) Lymph # (Auto) Carver # (Auto) Eos # (Auto) Baso # (Auto) Seg Neutrophils % Seg Neuts % (Manual) Lymphocytes % (Manual) Seg Neutrophils # Seg Neutrophils # Man Lymphocytes # (Manual) D-Dimer 3984.95 H ABG pH POC ABG pCO2 POC ABG pO2 ABG pO2 ABG HCO3 ABG O2 Saturation ABG Base Excess ABG Oxyhemoglobin ABG Sodium ABG Chloride ABG Glucose Oxyhemoglobin Carboxyhemoglobin Sodium Potassium Chloride Carbon Dioxide BUN Creatinine Glucose POC Glucose 229 H Hemoglobin A1c Magnesium Ferritin AST ALT Alkaline Phosphatase Lactate Dehydrogenase C-Reactive Protein Total Protein Albumin Arterial Blood Glucose Coronavirus (PCR) 05/01/21 05/01/21 05/01/21 12:10 15:46 21:06 WBC MCV MCH MCHC RDW Lymph % (Auto) Carver % (Auto) Eos % (Auto) Lymph # (Auto) Carver # (Auto) Eos # (Auto) Baso # (Auto) Seg Neutrophils % Seg Neuts % (Manual) Lymphocytes % (Manual) Seg Neutrophils # Seg Neutrophils # Man Lymphocytes # (Manual) D-Dimer ABG pH POC ABG pCO2 POC ABG pO2 ABG pO2 ABG HCO3 ABG O2 Saturation ABG Base Excess ABG Oxyhemoglobin ABG Sodium ABG Chloride ABG Glucose Oxyhemoglobin Carboxyhemoglobin Sodium Potassium Chloride Carbon Dioxide BUN Creatinine Glucose POC Glucose 296 H 279 H 232 H Hemoglobin A1c Magnesium Ferritin AST ALT Alkaline Phosphatase Lactate Dehydrogenase C-Reactive Protein Total Protein Albumin Arterial Blood Glucose Coronavirus (PCR) 05/02/21 05/02/21 05/02/21 04:55 04:55 04:55 WBC MCV MCH MCHC RDW 16.1 H Lymph % (Auto) Carver % (Auto) Eos % (Auto) Lymph # (Auto) Carver # (Auto) Eos # (Auto) Baso # (Auto) Seg Neutrophils % Seg Neuts % (Manual) Lymphocytes % (Manual) Seg Neutrophils # Seg Neutrophils # Man Lymphocytes # (Manual) D-Dimer 1401.08 H ABG pH POC ABG pCO2 POC ABG pO2 ABG pO2 ABG HCO3 ABG O2 Saturation ABG Base Excess ABG Oxyhemoglobin ABG Sodium ABG Chloride ABG Glucose Oxyhemoglobin Carboxyhemoglobin Sodium 131 L Potassium Chloride 95.5 L Carbon Dioxide BUN 20 H Creatinine 0.3 L Glucose 288 H POC Glucose Hemoglobin A1c Magnesium Ferritin AST ALT Alkaline Phosphatase Lactate Dehydrogenase C-Reactive Protein Total Protein 6.0 L Albumin 3.1 L Arterial Blood Glucose Coronavirus (PCR) 05/02/21 05/02/21 05/02/21 07:53 11:45 15:25 WBC MCV MCH MCHC RDW Lymph % (Auto) Carver % (Auto) Eos % (Auto) Lymph # (Auto) Carver # (Auto) Eos # (Auto) Baso # (Auto) Seg Neutrophils % Seg Neuts % (Manual) Lymphocytes % (Manual) Seg Neutrophils # Seg Neutrophils # Man Lymphocytes # (Manual) D-Dimer ABG pH POC ABG pCO2 POC ABG pO2 ABG pO2 ABG HCO3 ABG O2 Saturation ABG Base Excess ABG Oxyhemoglobin ABG Sodium ABG Chloride ABG Glucose Oxyhemoglobin Carboxyhemoglobin Sodium Potassium Chloride Carbon Dioxide BUN Creatinine Glucose POC Glucose 180 H 228 H 275 H Hemoglobin A1c Magnesium Ferritin AST ALT Alkaline Phosphatase Lactate Dehydrogenase C-Reactive Protein Total Protein Albumin Arterial Blood Glucose Coronavirus (PCR) 05/02/21 05/03/21 05/03/21 22:56 04:30 04:49 WBC MCV MCH MCHC RDW Lymph % (Auto) Carver % (Auto) Eos % (Auto) Lymph # (Auto) Carver # (Auto) Eos # (Auto) Baso # (Auto) Seg Neutrophils % Seg Neuts % (Manual) Lymphocytes % (Manual) Seg Neutrophils # Seg Neutrophils # Man Lymphocytes # (Manual) D-Dimer ABG pH 7.229 L POC ABG pCO2 POC ABG pO2 65.3 L ABG pO2 ABG HCO3 ABG O2 Saturation ABG Base Excess ABG Oxyhemoglobin 87.8 L ABG Sodium 133.0 L ABG Chloride 97.0 L ABG Glucose 403 H Oxyhemoglobin Carboxyhemoglobin Sodium 130 L Potassium Chloride 94.9 L Carbon Dioxide BUN 20 H Creatinine 0.5 L D Glucose 359 H POC Glucose 293 H Hemoglobin A1c Magnesium Ferritin AST 54 H ALT 75 H Alkaline Phosphatase 138 H Lactate Dehydrogenase C-Reactive Protein Total Protein Albumin 3.6 L Arterial Blood Glucose 403 H Coronavirus (PCR) 05/03/21 05/03/21 05/03/21 05:27 11:26 17:57 WBC MCV MCH MCHC RDW Lymph % (Auto) Carver % (Auto) Eos % (Auto) Lymph # (Auto) Carver # (Auto) Eos # (Auto) Baso # (Auto) Seg Neutrophils % Seg Neuts % (Manual) Lymphocytes % (Manual) Seg Neutrophils # Seg Neutrophils # Man Lymphocytes # (Manual) D-Dimer ABG pH POC ABG pCO2 POC ABG pO2 ABG pO2 ABG HCO3 ABG O2 Saturation ABG Base Excess ABG Oxyhemoglobin ABG Sodium ABG Chloride ABG Glucose Oxyhemoglobin Carboxyhemoglobin Sodium Potassium Chloride Carbon Dioxide BUN Creatinine Glucose POC Glucose 361 H 297 H 226 H Hemoglobin A1c Magnesium Ferritin AST ALT Alkaline Phosphatase Lactate Dehydrogenase C-Reactive Protein Total Protein Albumin Arterial Blood Glucose Coronavirus (PCR) 05/03/21 05/04/21 05/04/21 23:12 05:12 07:30 WBC MCV MCH MCHC RDW Lymph % (Auto) Carver % (Auto) Eos % (Auto) Lymph # (Auto) Carver # (Auto) Eos # (Auto) Baso # (Auto) Seg Neutrophils % Seg Neuts % (Manual) Lymphocytes % (Manual) Seg Neutrophils # Seg Neutrophils # Man Lymphocytes # (Manual) D-Dimer ABG pH POC ABG pCO2 POC ABG pO2 ABG pO2 ABG HCO3 ABG O2 Saturation ABG Base Excess ABG Oxyhemoglobin ABG Sodium ABG Chloride ABG Glucose Oxyhemoglobin Carboxyhemoglobin Sodium Potassium Chloride Carbon Dioxide BUN Creatinine Glucose POC Glucose 282 H 285 H 254 H Hemoglobin A1c Magnesium Ferritin AST ALT Alkaline Phosphatase Lactate Dehydrogenase C-Reactive Protein Total Protein Albumin Arterial Blood Glucose Coronavirus (PCR) 05/04/21 05/04/21 05/04/21 08:58 11:45 16:07 WBC MCV MCH MCHC RDW Lymph % (Auto) Carver % (Auto) Eos % (Auto) Lymph # (Auto) Carver # (Auto) Eos # (Auto) Baso # (Auto) Seg Neutrophils % Seg Neuts % (Manual) Lymphocytes % (Manual) Seg Neutrophils # Seg Neutrophils # Man Lymphocytes # (Manual) D-Dimer ABG pH POC ABG pCO2 POC ABG pO2 ABG pO2 ABG HCO3 ABG O2 Saturation ABG Base Excess ABG Oxyhemoglobin ABG Sodium ABG Chloride ABG Glucose Oxyhemoglobin Carboxyhemoglobin Sodium 134 L Potassium Chloride Carbon Dioxide BUN 20 H Creatinine 0.3 L Glucose 267 H POC Glucose 244 H 297 H Hemoglobin A1c Magnesium Ferritin AST ALT Alkaline Phosphatase Lactate Dehydrogenase C-Reactive Protein Total Protein 6.0 L Albumin 3.2 L Arterial Blood Glucose Coronavirus (PCR) 05/04/21 05/05/21 05/05/21 23:32 05:00 05:13 WBC MCV MCH MCHC RDW Lymph % (Auto) Carver % (Auto) Eos % (Auto) Lymph # (Auto) Carver # (Auto) Eos # (Auto) Baso # (Auto) Seg Neutrophils % Seg Neuts % (Manual) Lymphocytes % (Manual) Seg Neutrophils # Seg Neutrophils # Man Lymphocytes # (Manual) D-Dimer ABG pH POC ABG pCO2 POC ABG pO2 ABG pO2 ABG HCO3 ABG O2 Saturation ABG Base Excess ABG Oxyhemoglobin ABG Sodium ABG Chloride ABG Glucose Oxyhemoglobin Carboxyhemoglobin Sodium 132 L Potassium Chloride 96.4 L Carbon Dioxide BUN 22 H Creatinine 0.3 L Glucose 228 H POC Glucose 154 H 260 H Hemoglobin A1c Magnesium Ferritin AST ALT 67 H Alkaline Phosphatase Lactate Dehydrogenase C-Reactive Protein Total Protein 6.1 L Albumin 3.2 L Arterial Blood Glucose Coronavirus (PCR) 05/05/21 05/05/21 05/05/21 11:32 17:49 23:07 WBC MCV MCH MCHC RDW Lymph % (Auto) Carver % (Auto) Eos % (Auto) Lymph # (Auto) Carver # (Auto) Eos # (Auto) Baso # (Auto) Seg Neutrophils % Seg Neuts % (Manual) Lymphocytes % (Manual) Seg Neutrophils # Seg Neutrophils # Man Lymphocytes # (Manual) D-Dimer ABG pH POC ABG pCO2 POC ABG pO2 ABG pO2 ABG HCO3 ABG O2 Saturation ABG Base Excess ABG Oxyhemoglobin ABG Sodium ABG Chloride ABG Glucose Oxyhemoglobin Carboxyhemoglobin Sodium Potassium Chloride Carbon Dioxide BUN Creatinine Glucose POC Glucose 279 H 308 H 213 H Hemoglobin A1c Magnesium Ferritin AST ALT Alkaline Phosphatase Lactate Dehydrogenase C-Reactive Protein Total Protein Albumin Arterial Blood Glucose Coronavirus (PCR) 05/06/21 05/06/21 05/06/21 05:00 05:00 05:20 WBC MCV MCH MCHC RDW 16.8 H Lymph % (Auto) [place]ver % (Auto) Eos % (Auto) Lymph # (Auto) Carver # (Auto) Eos # (Auto) Baso # (Auto) Seg Neutrophils % Seg Neuts % (Manual) 99.0 H Lymphocytes % (Manual) Seg Neutrophils # Seg Neutrophils # Man 10.9 H Lymphocytes # (Manual) 0.0 L D-Dimer ABG pH POC ABG pCO2 POC ABG pO2 ABG pO2 ABG HCO3 ABG O2 Saturation ABG Base Excess ABG Oxyhemoglobin ABG Sodium ABG Chloride ABG Glucose Oxyhemoglobin Carboxyhemoglobin Sodium 133 L Potassium Chloride Carbon Dioxide BUN 21 H Creatinine 0.3 L Glucose 259 H POC Glucose 308 H Hemoglobin A1c Magnesium Ferritin AST ALT Alkaline Phosphatase Lactate Dehydrogenase C-Reactive Protein Total Protein Albumin 3.2 L Arterial Blood Glucose Coronavirus (PCR) 05/06/21 05/06/21 05/06/21 11:24 17:54 21:32 WBC MCV MCH MCHC RDW Lymph % (Auto) Carver % (Auto) Eos % (Auto) Lymph # (Auto) Carver # (Auto) Eos # (Auto) Baso # (Auto) Seg Neutrophils % Seg Neuts % (Manual) Lymphocytes % (Manual) Seg Neutrophils # Seg Neutrophils # Man Lymphocytes # (Manual) D-Dimer ABG pH POC ABG pCO2 POC ABG pO2 ABG pO2 ABG HCO3 ABG O2 Saturation ABG Base Excess ABG Oxyhemoglobin ABG Sodium ABG Chloride ABG Glucose Oxyhemoglobin Carboxyhemoglobin Sodium Potassium Chloride Carbon Dioxide BUN Creatinine Glucose POC Glucose 262 H 124 H 246 H Hemoglobin A1c Magnesium Ferritin AST ALT Alkaline Phosphatase Lactate Dehydrogenase C-Reactive Protein Total Protein Albumin Arterial Blood Glucose Coronavirus (PCR) 05/06/21 05/07/21 05/07/21 23:10 04:54 04:54 WBC MCV MCH MCHC RDW Lymph % (Auto) Carver % (Auto) Eos % (Auto) Lymph # (Auto) Carver # (Auto) Eos # (Auto) Baso # (Auto) Seg Neutrophils % Seg Neuts % (Manual) Lymphocytes % (Manual) Seg Neutrophils # Seg Neutrophils # Man Lymphocytes # (Manual) D-Dimer 1609.28 H ABG pH POC ABG pCO2 POC ABG pO2 ABG pO2 ABG HCO3 ABG O2 Saturation ABG Base Excess ABG Oxyhemoglobin ABG Sodium ABG Chloride ABG Glucose Oxyhemoglobin Carboxyhemoglobin Sodium 136 L Potassium Chloride Carbon Dioxide BUN 23 H Creatinine 0.3 L Glucose 110 H POC Glucose 249 H Hemoglobin A1c Magnesium Ferritin AST ALT Alkaline Phosphatase Lactate Dehydrogenase C-Reactive Protein Total Protein 6.2 L Albumin 3.0 L Arterial Blood Glucose Coronavirus (PCR) 05/07/21 05/07/21 05/07/21 04:54 04:54 11:41 WBC MCV MCH MCHC RDW Lymph % (Auto) Carver % (Auto) Eos % (Auto) Lymph # (Auto) Carver # (Auto) Eos # (Auto) Baso # (Auto) Seg Neutrophils % Seg Neuts % (Manual) Lymphocytes % (Manual) Seg Neutrophils # Seg Neutrophils # Man Lymphocytes # (Manual) D-Dimer ABG pH POC ABG pCO2 POC ABG pO2 ABG pO2 ABG HCO3 ABG O2 Saturation ABG Base Excess ABG Oxyhemoglobin ABG Sodium ABG Chloride ABG Glucose Oxyhemoglobin Carboxyhemoglobin Sodium Potassium Chloride Carbon Dioxide BUN Creatinine Glucose POC Glucose 118 H Hemoglobin A1c Magnesium Ferritin 296.1 H AST ALT Alkaline Phosphatase Lactate Dehydrogenase 724 H C-Reactive Protein Total Protein Albumin Arterial Blood Glucose Coronavirus (PCR) 05/07/21 05/07/21 05/08/21 16:43 22:34 06:44 WBC MCV MCH MCHC RDW Lymph % (Auto) Carver % (Auto) Eos % (Auto) Lymph # (Auto) Carver # (Auto) Eos # (Auto) Baso # (Auto) Seg Neutrophils % Seg Neuts % (Manual) Lymphocytes % (Manual) Seg Neutrophils # Seg Neutrophils # Man Lymphocytes # (Manual) D-Dimer ABG pH POC ABG pCO2 POC ABG pO2 ABG pO2 ABG HCO3 ABG O2 Saturation ABG Base Excess ABG Oxyhemoglobin ABG Sodium ABG Chloride ABG Glucose Oxyhemoglobin Carboxyhemoglobin Sodium Potassium Chloride Carbon Dioxide BUN Creatinine Glucose POC Glucose 159 H 233 H 235 H Hemoglobin A1c Magnesium Ferritin AST ALT Alkaline Phosphatase Lactate Dehydrogenase C-Reactive Protein Total Protein Albumin Arterial Blood Glucose Coronavirus (PCR) 05/08/21 05/08/21 05/08/21 07:49 11:56 17:13 WBC MCV MCH MCHC RDW Lymph % (Auto) Carver % (Auto) Eos % (Auto) Lymph # (Auto) Carver # (Auto) Eos # (Auto) Baso # (Auto) Seg Neutrophils % Seg Neuts % (Manual) Lymphocytes % (Manual) Seg Neutrophils # Seg Neutrophils # Man Lymphocytes # (Manual) D-Dimer ABG pH POC ABG pCO2 POC ABG pO2 ABG pO2 ABG HCO3 ABG O2 Saturation ABG Base Excess ABG Oxyhemoglobin ABG Sodium ABG Chloride ABG Glucose Oxyhemoglobin Carboxyhemoglobin Sodium Potassium Chloride Carbon Dioxide BUN Creatinine Glucose POC Glucose 219 H 184 H 182 H Hemoglobin A1c Magnesium Ferritin AST ALT Alkaline Phosphatase Lactate Dehydrogenase C-Reactive Protein Total Protein Albumin Arterial Blood Glucose Coronavirus (PCR) 05/08/21 05/09/21 05/09/21 23:35 05:20 05:20 WBC MCV MCH MCHC RDW Lymph % (Auto) Carver % (Auto) Eos % (Auto) Lymph # (Auto) Carver # (Auto) Eos # (Auto) Baso # (Auto) Seg Neutrophils % Seg Neuts % (Manual) Lymphocytes % (Manual) Seg Neutrophils # Seg Neutrophils # Man Lymphocytes # (Manual) D-Dimer 1003.87 H ABG pH POC ABG pCO2 POC ABG pO2 ABG pO2 ABG HCO3 ABG O2 Saturation ABG Base Excess ABG Oxyhemoglobin ABG Sodium ABG Chloride ABG Glucose Oxyhemoglobin Carboxyhemoglobin Sodium Potassium Chloride Carbon Dioxide BUN Creatinine Glucose POC Glucose 198 H Hemoglobin A1c Magnesium Ferritin 378.7 H AST ALT Alkaline Phosphatase Lactate Dehydrogenase C-Reactive Protein Total Protein Albumin Arterial Blood Glucose Coronavirus (PCR) 05/09/21 05/09/21 05/09/21 05:20 06:04 12:53 WBC MCV MCH MCHC RDW Lymph % (Auto) [place]ver % (Auto) Eos % (Auto) Lymph # (Auto) Carver # (Auto) Eos # (Auto) Baso # (Auto) Seg Neutrophils % Seg Neuts % (Manual) Lymphocytes % (Manual) Seg Neutrophils # Seg Neutrophils # Man Lymphocytes # (Manual) D-Dimer ABG pH POC ABG pCO2 POC ABG pO2 ABG pO2 ABG HCO3 ABG O2 Saturation ABG Base Excess ABG Oxyhemoglobin ABG Sodium ABG Chloride ABG Glucose Oxyhemoglobin Carboxyhemoglobin Sodium Potassium Chloride Carbon Dioxide BUN Creatinine Glucose POC Glucose 159 H 180 H Hemoglobin A1c Magnesium Ferritin AST ALT Alkaline Phosphatase Lactate Dehydrogenase 558 H C-Reactive Protein 2.40 H Total Protein Albumin Arterial Blood Glucose Coronavirus (PCR) 05/09/21 05/09/21 05/10/21 16:43 21:27 10:18 WBC MCV MCH MCHC RDW Lymph % (Auto) [place]ver % (Auto) Eos % (Auto) Lymph # (Auto) Carver # (Auto) Eos # (Auto) Baso # (Auto) Seg Neutrophils % Seg Neuts % (Manual) Lymphocytes % (Manual) Seg Neutrophils # Seg Neutrophils # Man Lymphocytes # (Manual) D-Dimer ABG pH POC ABG pCO2 POC ABG pO2 ABG pO2 ABG HCO3 ABG O2 Saturation ABG Base Excess ABG Oxyhemoglobin ABG Sodium ABG Chloride ABG Glucose Oxyhemoglobin Carboxyhemoglobin Sodium Potassium Chloride Carbon Dioxide BUN Creatinine Glucose POC Glucose 212 H 285 H 261 H Hemoglobin A1c Magnesium Ferritin AST ALT Alkaline Phosphatase Lactate Dehydrogenase C-Reactive Protein Total Protein Albumin Arterial Blood Glucose Coronavirus (PCR) 05/10/21 05/10/21 05/11/21 17:58 18:02 00:29 WBC MCV MCH MCHC RDW Lymph % (Auto) Carver % (Auto) Eos % (Auto) Lymph # (Auto) Carver # (Auto) Eos # (Auto) Baso # (Auto) Seg Neutrophils % Seg Neuts % (Manual) Lymphocytes % (Manual) Seg Neutrophils # Seg Neutrophils # Man Lymphocytes # (Manual) D-Dimer ABG pH POC ABG pCO2 POC ABG pO2 ABG pO2 ABG HCO3 ABG O2 Saturation ABG Base Excess ABG Oxyhemoglobin ABG Sodium ABG Chloride ABG Glucose Oxyhemoglobin Carboxyhemoglobin Sodium Potassium Chloride Carbon Dioxide BUN Creatinine Glucose POC Glucose 213 H 179 H 149 H Hemoglobin A1c Magnesium Ferritin AST ALT Alkaline Phosphatase Lactate Dehydrogenase C-Reactive Protein Total Protein Albumin Arterial Blood Glucose Coronavirus (PCR) 05/11/21 05/11/21 05/11/21 05:22 11:32 17:00 WBC 14.9 H MCV MCH MCHC RDW 18.9 H Lymph % (Auto) 4.9 L Carver % (Auto) Eos % (Auto) Lymph # (Auto) 0.7 L Carver # (Auto) Eos # (Auto) Baso # (Auto) 0.2 H Seg Neutrophils % Seg Neuts % (Manual) Lymphocytes % (Manual) Seg Neutrophils # 13.3 H Seg Neutrophils # Man Lymphocytes # (Manual) D-Dimer ABG pH POC ABG pCO2 POC ABG pO2 ABG pO2 ABG HCO3 ABG O2 Saturation ABG Base Excess ABG Oxyhemoglobin ABG Sodium ABG Chloride ABG Glucose Oxyhemoglobin Carboxyhemoglobin Sodium Potassium Chloride Carbon Dioxide BUN Creatinine Glucose POC Glucose 162 H 179 H Hemoglobin A1c Magnesium Ferritin AST ALT Alkaline Phosphatase Lactate Dehydrogenase C-Reactive Protein Total Protein Albumin Arterial Blood Glucose Coronavirus (PCR) 05/11/21 05/11/21 05/11/21 17:00 17:33 22:03 WBC MCV MCH MCHC RDW Lymph % (Auto) Carver % (Auto) Eos % (Auto) Lymph # (Auto) Carver # (Auto) Eos # (Auto) Baso # (Auto) Seg Neutrophils % Seg Neuts % (Manual) Lymphocytes % (Manual) Seg Neutrophils # Seg Neutrophils # Man Lymphocytes # (Manual) D-Dimer ABG pH POC ABG pCO2 POC ABG pO2 ABG pO2 ABG HCO3 ABG O2 Saturation ABG Base Excess ABG Oxyhemoglobin ABG Sodium ABG Chloride ABG Glucose Oxyhemoglobin Carboxyhemoglobin Sodium 135 L Potassium Chloride 97.3 L Carbon Dioxide BUN 21 H Creatinine 0.3 L Glucose 133 H POC Glucose 140 H 282 H Hemoglobin A1c Magnesium Ferritin AST ALT 60 H Alkaline Phosphatase Lactate Dehydrogenase C-Reactive Protein Total Protein Albumin 3.1 L Arterial Blood Glucose Coronavirus (PCR) 05/12/21 05/12/21 05/12/21 04:05 04:05 04:05 WBC MCV MCH MCHC RDW 18.4 H Lymph % (Auto) [place]ver % (Auto) Eos % (Auto) Lymph # (Auto) Carver # (Auto) Eos # (Auto) Baso # (Auto) Seg Neutrophils % Seg Neuts % (Manual) 94.0 H Lymphocytes % (Manual) 4.0 L Seg Neutrophils # Seg Neutrophils # Man Lymphocytes # (Manual) 0.3 L D-Dimer ABG pH POC ABG pCO2 POC ABG pO2 ABG pO2 ABG HCO3 ABG O2 Saturation ABG Base Excess ABG Oxyhemoglobin ABG Sodium ABG Chloride ABG Glucose Oxyhemoglobin Carboxyhemoglobin Sodium 136 L Potassium Chloride Carbon Dioxide BUN 18 H Creatinine 0.2 L Glucose 142 H POC Glucose Hemoglobin A1c Magnesium Ferritin 350.7 H AST ALT Alkaline Phosphatase Lactate Dehydrogenase 546 H C-Reactive Protein Total Protein 6.1 L Albumin 3.0 L Arterial Blood Glucose Coronavirus (PCR) 05/12/21 05/12/21 05/12/21 05:11 11:17 16:27 WBC MCV MCH MCHC RDW Lymph % (Auto) Carver % (Auto) Eos % (Auto) Lymph # (Auto) Carver # (Auto) Eos # (Auto) Baso # (Auto) Seg Neutrophils % Seg Neuts % (Manual) Lymphocytes % (Manual) Seg Neutrophils # Seg Neutrophils # Man Lymphocytes # (Manual) D-Dimer ABG pH POC ABG pCO2 POC ABG pO2 ABG pO2 ABG HCO3 ABG O2 Saturation ABG Base Excess ABG Oxyhemoglobin ABG Sodium ABG Chloride ABG Glucose Oxyhemoglobin Carboxyhemoglobin Sodium Potassium Chloride Carbon Dioxide BUN Creatinine Glucose POC Glucose 152 H 190 H 261 H Hemoglobin A1c Magnesium Ferritin AST ALT Alkaline Phosphatase Lactate Dehydrogenase C-Reactive Protein Total Protein Albumin Arterial Blood Glucose Coronavirus (PCR) 05/12/21 05/13/21 05/13/21 20:55 11:08 21:41 WBC MCV MCH MCHC RDW Lymph % (Auto) Carver % (Auto) Eos % (Auto) Lymph # (Auto) Carver # (Auto) Eos # (Auto) Baso # (Auto) Seg Neutrophils % Seg Neuts % (Manual) Lymphocytes % (Manual) Seg Neutrophils # Seg Neutrophils # Man Lymphocytes # (Manual) D-Dimer ABG pH POC ABG pCO2 POC ABG pO2 ABG pO2 ABG HCO3 ABG O2 Saturation ABG Base Excess ABG Oxyhemoglobin ABG Sodium ABG Chloride ABG Glucose Oxyhemoglobin Carboxyhemoglobin Sodium Potassium Chloride Carbon Dioxide BUN Creatinine Glucose POC Glucose 231 H 106 H 174 H Hemoglobin A1c Magnesium Ferritin AST ALT Alkaline Phosphatase Lactate Dehydrogenase C-Reactive Protein Total Protein Albumin Arterial Blood Glucose Coronavirus (PCR) 05/14/21 05/14/21 05/14/21 00:53 02:23 06:06 WBC MCV MCH MCHC RDW Lymph % (Auto) Carver % (Auto) Eos % (Auto) Lymph # (Auto) Carver # (Auto) Eos # (Auto) Baso # (Auto) Seg Neutrophils % Seg Neuts % (Manual) Lymphocytes % (Manual) Seg Neutrophils # Seg Neutrophils # Man Lymphocytes # (Manual) D-Dimer ABG pH POC ABG pCO2 POC ABG pO2 ABG pO2 130.3 H ABG HCO3 30.6 H ABG O2 Saturation ABG Base Excess 4.9 H ABG Oxyhemoglobin ABG Sodium ABG Chloride ABG Glucose Oxyhemoglobin Carboxyhemoglobin Sodium Potassium Chloride Carbon Dioxide BUN Creatinine Glucose POC Glucose 229 H 119 H Hemoglobin A1c Magnesium Ferritin AST ALT Alkaline Phosphatase Lactate Dehydrogenase C-Reactive Protein Total Protein Albumin Arterial Blood Glucose Coronavirus (PCR) 05/14/21 05/14/21 05/14/21 07:13 07:13 07:13 WBC MCV MCH MCHC RDW Lymph % (Auto) Carver % (Auto) Eos % (Auto) Lymph # (Auto) Carver # (Auto) Eos # (Auto) Baso # (Auto) Seg Neutrophils % Seg Neuts % (Manual) Lymphocytes % (Manual) Seg Neutrophils # Seg Neutrophils # Man Lymphocytes # (Manual) D-Dimer 712.80 H ABG pH POC ABG pCO2 POC ABG pO2 ABG pO2 ABG HCO3 ABG O2 Saturation ABG Base Excess ABG Oxyhemoglobin ABG Sodium ABG Chloride ABG Glucose Oxyhemoglobin Carboxyhemoglobin Sodium 133 L Potassium Chloride 95.5 L Carbon Dioxide 32 H BUN Creatinine 0.2 L Glucose 137 H POC Glucose Hemoglobin A1c Magnesium Ferritin 283.5 H AST ALT 63 H Alkaline Phosphatase Lactate Dehydrogenase 563 H C-Reactive Protein Total Protein 6.1 L Albumin 3.0 L Arterial Blood Glucose Coronavirus (PCR) 05/14/21 05/14/21 05/14/21 12:21 15:33 21:50 WBC MCV MCH MCHC RDW Lymph % (Auto) Carver % (Auto) Eos % (Auto) Lymph # (Auto) Carver # (Auto) Eos # (Auto) Baso # (Auto) Seg Neutrophils % Seg Neuts % (Manual) Lymphocytes % (Manual) Seg Neutrophils # Seg Neutrophils # Man Lymphocytes # (Manual) D-Dimer ABG pH POC ABG pCO2 POC ABG pO2 ABG pO2 ABG HCO3 ABG O2 Saturation ABG Base Excess ABG Oxyhemoglobin ABG Sodium ABG Chloride ABG Glucose Oxyhemoglobin Carboxyhemoglobin Sodium Potassium Chloride Carbon Dioxide BUN Creatinine Glucose POC Glucose 143 H 204 H 202 H Hemoglobin A1c Magnesium Ferritin AST ALT Alkaline Phosphatase Lactate Dehydrogenase C-Reactive Protein Total Protein Albumin Arterial Blood Glucose Coronavirus (PCR) 05/15/21 05/15/21 05/15/21 05:05 11:12 16:39 WBC MCV MCH MCHC RDW Lymph % (Auto) Carver % (Auto) Eos % (Auto) Lymph # (Auto) Carver # (Auto) Eos # (Auto) Baso # (Auto) Seg Neutrophils % Seg Neuts % (Manual) Lymphocytes % (Manual) Seg Neutrophils # Seg Neutrophils # Man Lymphocytes # (Manual) D-Dimer ABG pH POC ABG pCO2 POC ABG pO2 ABG pO2 ABG HCO3 ABG O2 Saturation ABG Base Excess ABG Oxyhemoglobin ABG Sodium ABG Chloride ABG Glucose Oxyhemoglobin Carboxyhemoglobin Sodium Potassium Chloride Carbon Dioxide BUN Creatinine Glucose POC Glucose 125 H 201 H 241 H Hemoglobin A1c Magnesium Ferritin AST ALT Alkaline Phosphatase Lactate Dehydrogenase C-Reactive Protein Total Protein Albumin Arterial Blood Glucose Coronavirus (PCR) 05/15/21 05/16/21 05/16/21 21:31 05:04 10:40 WBC MCV MCH MCHC RDW Lymph % (Auto) Carver % (Auto) Eos % (Auto) Lymph # (Auto) Carver # (Auto) Eos # (Auto) Baso # (Auto) Seg Neutrophils % Seg Neuts % (Manual) Lymphocytes % (Manual) Seg Neutrophils # Seg Neutrophils # Man Lymphocytes # (Manual) D-Dimer ABG pH POC ABG pCO2 POC ABG pO2 ABG pO2 ABG HCO3 ABG O2 Saturation ABG Base Excess ABG Oxyhemoglobin ABG Sodium ABG Chloride ABG Glucose Oxyhemoglobin Carboxyhemoglobin Sodium Potassium Chloride Carbon Dioxide BUN Creatinine Glucose POC Glucose 234 H 123 H 231 H Hemoglobin A1c Magnesium Ferritin AST ALT Alkaline Phosphatase Lactate Dehydrogenase C-Reactive Protein Total Protein Albumin Arterial Blood Glucose Coronavirus (PCR) 05/16/21 05/16/21 05/17/21 18:23 21:29 06:20 WBC MCV MCH MCHC RDW 18.8 H Lymph % (Auto) 10.2 L Carver % (Auto) Eos % (Auto) Lymph # (Auto) 0.8 L Carver # (Auto) Eos # (Auto) Baso # (Auto) Seg Neutrophils % 85.8 H Seg Neuts % (Manual) Lymphocytes % (Manual) Seg Neutrophils # Seg Neutrophils # Man Lymphocytes # (Manual) D-Dimer ABG pH POC ABG pCO2 POC ABG pO2 ABG pO2 ABG HCO3 ABG O2 Saturation ABG Base Excess ABG Oxyhemoglobin ABG Sodium ABG Chloride ABG Glucose Oxyhemoglobin Carboxyhemoglobin Sodium Potassium Chloride Carbon Dioxide BUN Creatinine Glucose POC Glucose 266 H 234 H Hemoglobin A1c Magnesium Ferritin AST ALT Alkaline Phosphatase Lactate Dehydrogenase C-Reactive Protein Total Protein Albumin Arterial Blood Glucose Coronavirus (PCR) 05/17/21 05/17/21 05/17/21 06:20 11:06 16:36 WBC MCV MCH MCHC RDW Lymph % (Auto) Carver % (Auto) Eos % (Auto) Lymph # (Auto) Carver # (Auto) Eos # (Auto) Baso # (Auto) Seg Neutrophils % Seg Neuts % (Manual) Lymphocytes % (Manual) Seg Neutrophils # Seg Neutrophils # Man Lymphocytes # (Manual) D-Dimer ABG pH POC ABG pCO2 POC ABG pO2 ABG pO2 ABG HCO3 ABG O2 Saturation ABG Base Excess ABG Oxyhemoglobin ABG Sodium ABG Chloride ABG Glucose Oxyhemoglobin Carboxyhemoglobin Sodium Potassium Chloride Carbon Dioxide 33 H BUN Creatinine 0.2 L Glucose 101 H POC Glucose 209 H 180 H Hemoglobin A1c Magnesium Ferritin AST ALT Alkaline Phosphatase Lactate Dehydrogenase C-Reactive Protein Total Protein Albumin Arterial Blood Glucose Coronavirus (PCR) 05/17/21 05/18/21 05/18/21 21:06 12:00 15:06 WBC MCV MCH MCHC RDW Lymph % (Auto) Carver % (Auto) Eos % (Auto) Lymph # (Auto) Carver # (Auto) Eos # (Auto) Baso # (Auto) Seg Neutrophils % Seg Neuts % (Manual) Lymphocytes % (Manual) Seg Neutrophils # Seg Neutrophils # Man Lymphocytes # (Manual) D-Dimer 874.02 H ABG pH POC ABG pCO2 POC ABG pO2 ABG pO2 ABG HCO3 ABG O2 Saturation ABG Base Excess ABG Oxyhemoglobin ABG Sodium ABG Chloride ABG Glucose Oxyhemoglobin Carboxyhemoglobin Sodium Potassium Chloride Carbon Dioxide BUN Creatinine Glucose POC Glucose 256 H 139 H Hemoglobin A1c Magnesium Ferritin AST ALT Alkaline Phosphatase Lactate Dehydrogenase C-Reactive Protein Total Protein Albumin Arterial Blood Glucose Coronavirus (PCR) 05/18/21 05/18/21 05/18/21 15:06 15:06 16:08 WBC MCV MCH MCHC RDW Lymph % (Auto) Carver % (Auto) Eos % (Auto) Lymph # (Auto) Carver # (Auto) Eos # (Auto) Baso # (Auto) Seg Neutrophils % Seg Neuts % (Manual) Lymphocytes % (Manual) Seg Neutrophils # Seg Neutrophils # Man Lymphocytes # (Manual) D-Dimer ABG pH POC ABG pCO2 POC ABG pO2 ABG pO2 ABG HCO3 ABG O2 Saturation ABG Base Excess ABG Oxyhemoglobin ABG Sodium ABG Chloride ABG Glucose Oxyhemoglobin Carboxyhemoglobin Sodium Potassium Chloride Carbon Dioxide BUN Creatinine Glucose POC Glucose 178 H Hemoglobin A1c Magnesium Ferritin 289.6 H AST ALT Alkaline Phosphatase Lactate Dehydrogenase 605 H C-Reactive Protein Total Protein Albumin Arterial Blood Glucose Coronavirus (PCR) 05/18/21 05/19/21 05/19/21 21:22 11:57 15:26 WBC MCV MCH MCHC RDW Lymph % (Auto) Carver % (Auto) Eos % (Auto) Lymph # (Auto) Carver # (Auto) Eos # (Auto) Baso # (Auto) Seg Neutrophils % Seg Neuts % (Manual) Lymphocytes % (Manual) Seg Neutrophils # Seg Neutrophils # Man Lymphocytes # (Manual) D-Dimer ABG pH POC ABG pCO2 POC ABG pO2 ABG pO2 ABG HCO3 ABG O2 Saturation ABG Base Excess ABG Oxyhemoglobin ABG Sodium ABG Chloride ABG Glucose Oxyhemoglobin Carboxyhemoglobin Sodium Potassium Chloride Carbon Dioxide BUN Creatinine Glucose POC Glucose 241 H 201 H 209 H Hemoglobin A1c Magnesium Ferritin AST ALT Alkaline Phosphatase Lactate Dehydrogenase C-Reactive Protein Total Protein Albumin Arterial Blood Glucose Coronavirus (PCR) 05/19/21 05/20/21 05/20/21 20:59 07:38 08:01 WBC MCV MCH MCHC RDW 19.7 H Lymph % (Auto) 8.3 L Carver % (Auto) Eos % (Auto) Lymph # (Auto) 0.8 L Carver # (Auto) Eos # (Auto) Baso # (Auto) Seg Neutrophils % 88.6 H Seg Neuts % (Manual) Lymphocytes % (Manual) Seg Neutrophils # 8.4 H Seg Neutrophils # Man Lymphocytes # (Manual) D-Dimer ABG pH POC ABG pCO2 POC ABG pO2 ABG pO2 ABG HCO3 ABG O2 Saturation ABG Base Excess ABG Oxyhemoglobin ABG Sodium ABG Chloride ABG Glucose Oxyhemoglobin Carboxyhemoglobin Sodium Potassium Chloride Carbon Dioxide BUN Creatinine Glucose POC Glucose 226 H 130 H Hemoglobin A1c Magnesium Ferritin AST ALT Alkaline Phosphatase Lactate Dehydrogenase C-Reactive Protein Total Protein Albumin Arterial Blood Glucose Coronavirus (PCR) 05/20/21 05/20/21 05/20/21 08:01 11:00 16:43 WBC MCV MCH MCHC RDW Lymph % (Auto) [place]ver % (Auto) Eos % (Auto) Lymph # (Auto) Carver # (Auto) Eos # (Auto) Baso # (Auto) Seg Neutrophils % Seg Neuts % (Manual) Lymphocytes % (Manual) Seg Neutrophils # Seg Neutrophils # Man Lymphocytes # (Manual) D-Dimer ABG pH POC ABG pCO2 POC ABG pO2 ABG pO2 ABG HCO3 ABG O2 Saturation ABG Base Excess ABG Oxyhemoglobin ABG Sodium ABG Chloride ABG Glucose Oxyhemoglobin Carboxyhemoglobin Sodium Potassium Chloride Carbon Dioxide BUN 18 H Creatinine 0.2 L Glucose 132 H POC Glucose 237 H 240 H Hemoglobin A1c Magnesium Ferritin AST ALT Alkaline Phosphatase Lactate Dehydrogenase C-Reactive Protein Total Protein Albumin Arterial Blood Glucose Coronavirus (PCR) 05/20/21 05/21/21 05/21/21 21:21 07:35 11:32 WBC MCV MCH MCHC RDW Lymph % (Auto) Carver % (Auto) Eos % (Auto) Lymph # (Auto) Carver # (Auto) Eos # (Auto) Baso # (Auto) Seg Neutrophils % Seg Neuts % (Manual) Lymphocytes % (Manual) Seg Neutrophils # Seg Neutrophils # Man Lymphocytes # (Manual) D-Dimer ABG pH POC ABG pCO2 POC ABG pO2 ABG pO2 ABG HCO3 ABG O2 Saturation ABG Base Excess ABG Oxyhemoglobin ABG Sodium ABG Chloride ABG Glucose Oxyhemoglobin Carboxyhemoglobin Sodium Potassium Chloride Carbon Dioxide BUN Creatinine Glucose POC Glucose 241 H 162 H 171 H Hemoglobin A1c Magnesium Ferritin AST ALT Alkaline Phosphatase Lactate Dehydrogenase C-Reactive Protein Total Protein Albumin Arterial Blood Glucose Coronavirus (PCR) 05/21/21 05/21/21 05/22/21 16:22 20:43 05:14 WBC MCV MCH MCHC RDW Lymph % (Auto) Carver % (Auto) Eos % (Auto) Lymph # (Auto) Carver # (Auto) Eos # (Auto) Baso # (Auto) Seg Neutrophils % Seg Neuts % (Manual) Lymphocytes % (Manual) Seg Neutrophils # Seg Neutrophils # Man Lymphocytes # (Manual) D-Dimer ABG pH POC ABG pCO2 POC ABG pO2 ABG pO2 ABG HCO3 ABG O2 Saturation ABG Base Excess ABG Oxyhemoglobin ABG Sodium ABG Chloride ABG Glucose Oxyhemoglobin Carboxyhemoglobin Sodium Potassium Chloride Carbon Dioxide BUN Creatinine Glucose POC Glucose 244 H 299 H 140 H Hemoglobin A1c Magnesium Ferritin AST ALT Alkaline Phosphatase Lactate Dehydrogenase C-Reactive Protein Total Protein Albumin Arterial Blood Glucose Coronavirus (PCR) 05/22/21 05/22/21 05/22/21 08:45 11:54 16:15 WBC MCV MCH MCHC RDW Lymph % (Auto) [place]ver % (Auto) Eos % (Auto) Lymph # (Auto) Carver # (Auto) Eos # (Auto) Baso # (Auto) Seg Neutrophils % Seg Neuts % (Manual) Lymphocytes % (Manual) Seg Neutrophils # Seg Neutrophils # Man Lymphocytes # (Manual) D-Dimer ABG pH POC ABG pCO2 POC ABG pO2 ABG pO2 ABG HCO3 ABG O2 Saturation ABG Base Excess ABG Oxyhemoglobin ABG Sodium ABG Chloride ABG Glucose Oxyhemoglobin Carboxyhemoglobin Sodium Potassium Chloride Carbon Dioxide BUN Creatinine Glucose POC Glucose 133 H 265 H 221 H Hemoglobin A1c Magnesium Ferritin AST ALT Alkaline Phosphatase Lactate Dehydrogenase C-Reactive Protein Total Protein Albumin Arterial Blood Glucose Coronavirus (PCR) 05/22/21 05/23/21 05/23/21 21:43 08:20 09:50 WBC MCV MCH MCHC RDW Lymph % (Auto) Carver % (Auto) Eos % (Auto) Lymph # (Auto) Carver # (Auto) Eos # (Auto) Baso # (Auto) Seg Neutrophils % Seg Neuts % (Manual) Lymphocytes % (Manual) Seg Neutrophils # Seg Neutrophils # Man Lymphocytes # (Manual) D-Dimer 910.38 H ABG pH POC ABG pCO2 POC ABG pO2 ABG pO2 ABG HCO3 ABG O2 Saturation ABG Base Excess ABG Oxyhemoglobin ABG Sodium ABG Chloride ABG Glucose Oxyhemoglobin Carboxyhemoglobin Sodium Potassium Chloride Carbon Dioxide BUN Creatinine Glucose POC Glucose 262 H 140 H Hemoglobin A1c Magnesium Ferritin AST ALT Alkaline Phosphatase Lactate Dehydrogenase C-Reactive Protein Total Protein Albumin Arterial Blood Glucose Coronavirus (PCR) 05/23/21 05/23/21 05/23/21 09:50 09:50 10:52 WBC MCV MCH MCHC RDW Lymph % (Auto) Carver % (Auto) Eos % (Auto) Lymph # (Auto) Carver # (Auto) Eos # (Auto) Baso # (Auto) Seg Neutrophils % Seg Neuts % (Manual) Lymphocytes % (Manual) Seg Neutrophils # Seg Neutrophils # Man Lymphocytes # (Manual) D-Dimer ABG pH POC ABG pCO2 POC ABG pO2 ABG pO2 ABG HCO3 ABG O2 Saturation ABG Base Excess ABG Oxyhemoglobin ABG Sodium ABG Chloride ABG Glucose Oxyhemoglobin Carboxyhemoglobin Sodium Potassium Chloride Carbon Dioxide BUN Creatinine Glucose POC Glucose 241 H Hemoglobin A1c Magnesium Ferritin 244.9 H AST ALT Alkaline Phosphatase Lactate Dehydrogenase 584 H C-Reactive Protein Total Protein Albumin Arterial Blood Glucose Coronavirus (PCR) 05/23/21 05/23/21 05/24/21 17:24 21:52 07:44 WBC MCV MCH MCHC RDW Lymph % (Auto) Carver % (Auto) Eos % (Auto) Lymph # (Auto) Carver # (Auto) Eos # (Auto) Baso # (Auto) Seg Neutrophils % Seg Neuts % (Manual) Lymphocytes % (Manual) Seg Neutrophils # Seg Neutrophils # Man Lymphocytes # (Manual) D-Dimer ABG pH POC ABG pCO2 POC ABG pO2 ABG pO2 ABG HCO3 ABG O2 Saturation ABG Base Excess ABG Oxyhemoglobin ABG Sodium ABG Chloride ABG Glucose Oxyhemoglobin Carboxyhemoglobin Sodium Potassium Chloride Carbon Dioxide BUN Creatinine Glucose POC Glucose 197 H 289 H 161 H Hemoglobin A1c Magnesium Ferritin AST ALT Alkaline Phosphatase Lactate Dehydrogenase C-Reactive Protein Total Protein Albumin Arterial Blood Glucose Coronavirus (PCR) 05/24/21 05/24/21 05/24/21 11:17 17:51 21:26 WBC MCV MCH MCHC RDW Lymph % (Auto) Carver % (Auto) Eos % (Auto) Lymph # (Auto) Carver # (Auto) Eos # (Auto) Baso # (Auto) Seg Neutrophils % Seg Neuts % (Manual) Lymphocytes % (Manual) Seg Neutrophils # Seg Neutrophils # Man Lymphocytes # (Manual) D-Dimer ABG pH POC ABG pCO2 POC ABG pO2 ABG pO2 ABG HCO3 ABG O2 Saturation ABG Base Excess ABG Oxyhemoglobin ABG Sodium ABG Chloride ABG Glucose Oxyhemoglobin Carboxyhemoglobin Sodium Potassium Chloride Carbon Dioxide BUN Creatinine Glucose POC Glucose 308 H 175 H 198 H Hemoglobin A1c Magnesium Ferritin AST ALT Alkaline Phosphatase Lactate Dehydrogenase C-Reactive Protein Total Protein Albumin Arterial Blood Glucose Coronavirus (PCR) 05/25/21 05/25/21 05/25/21 08:14 11:13 17:13 WBC MCV MCH MCHC RDW Lymph % (Auto) [place]ver % (Auto) Eos % (Auto) Lymph # (Auto) Carver # (Auto) Eos # (Auto) Baso # (Auto) Seg Neutrophils % Seg Neuts % (Manual) Lymphocytes % (Manual) Seg Neutrophils # Seg Neutrophils # Man Lymphocytes # (Manual) D-Dimer ABG pH POC ABG pCO2 POC ABG pO2 ABG pO2 ABG HCO3 ABG O2 Saturation ABG Base Excess ABG Oxyhemoglobin ABG Sodium ABG Chloride ABG Glucose Oxyhemoglobin Carboxyhemoglobin Sodium Potassium Chloride Carbon Dioxide BUN Creatinine Glucose POC Glucose 203 H 339 H 235 H Hemoglobin A1c Magnesium Ferritin AST ALT Alkaline Phosphatase Lactate Dehydrogenase C-Reactive Protein Total Protein Albumin Arterial Blood Glucose Coronavirus (PCR) 05/25/21 05/26/21 05/26/21 21:03 07:33 11:19 WBC MCV MCH MCHC RDW Lymph % (Auto) Carver % (Auto) Eos % (Auto) Lymph # (Auto) Carver # (Auto) Eos # (Auto) Baso # (Auto) Seg Neutrophils % Seg Neuts % (Manual) Lymphocytes % (Manual) Seg Neutrophils # Seg Neutrophils # Man Lymphocytes # (Manual) D-Dimer ABG pH POC ABG pCO2 POC ABG pO2 ABG pO2 ABG HCO3 ABG O2 Saturation ABG Base Excess ABG Oxyhemoglobin ABG Sodium ABG Chloride ABG Glucose Oxyhemoglobin Carboxyhemoglobin Sodium Potassium Chloride Carbon Dioxide BUN Creatinine Glucose POC Glucose 263 H 156 H 288 H Hemoglobin A1c Magnesium Ferritin AST ALT Alkaline Phosphatase Lactate Dehydrogenase C-Reactive Protein Total Protein Albumin Arterial Blood Glucose Coronavirus (PCR) 05/26/21 05/26/21 05/27/21 16:26 20:55 07:38 WBC MCV MCH MCHC RDW Lymph % (Auto) [place]ver % (Auto) Eos % (Auto) Lymph # (Auto) [place]ver # (Auto) Eos # (Auto) Baso # (Auto) Seg Neutrophils % Seg Neuts % (Manual) Lymphocytes % (Manual) Seg Neutrophils # Seg Neutrophils # Man Lymphocytes # (Manual) D-Dimer ABG pH POC ABG pCO2 POC ABG pO2 ABG pO2 ABG HCO3 ABG O2 Saturation ABG Base Excess ABG Oxyhemoglobin ABG Sodium ABG Chloride ABG Glucose Oxyhemoglobin Carboxyhemoglobin Sodium Potassium Chloride Carbon Dioxide BUN Creatinine Glucose POC Glucose 286 H 293 H 115 H Hemoglobin A1c Magnesium Ferritin AST ALT Alkaline Phosphatase Lactate Dehydrogenase C-Reactive Protein Total Protein Albumin Arterial Blood Glucose Coronavirus (PCR) 05/27/21 05/27/21 05/27/21 11:46 15:58 21:02 WBC MCV MCH MCHC RDW Lymph % (Auto) Carver % (Auto) Eos % (Auto) Lymph # (Auto) Carver # (Auto) Eos # (Auto) Baso # (Auto) Seg Neutrophils % Seg Neuts % (Manual) Lymphocytes % (Manual) Seg Neutrophils # Seg Neutrophils # Man Lymphocytes # (Manual) D-Dimer ABG pH POC ABG pCO2 POC ABG pO2 ABG pO2 ABG HCO3 ABG O2 Saturation ABG Base Excess ABG Oxyhemoglobin ABG Sodium ABG Chloride ABG Glucose Oxyhemoglobin Carboxyhemoglobin Sodium Potassium Chloride Carbon Dioxide BUN Creatinine Glucose POC Glucose 260 H 318 H 246 H Hemoglobin A1c Magnesium Ferritin AST ALT Alkaline Phosphatase Lactate Dehydrogenase C-Reactive Protein Total Protein Albumin Arterial Blood Glucose Coronavirus (PCR) 05/28/21 05/28/21 05/28/21 07:34 11:31 16:36 WBC MCV MCH MCHC RDW Lymph % (Auto) Carver % (Auto) Eos % (Auto) Lymph # (Auto) Carver # (Auto) Eos # (Auto) Baso # (Auto) Seg Neutrophils % Seg Neuts % (Manual) Lymphocytes % (Manual) Seg Neutrophils # Seg Neutrophils # Man Lymphocytes # (Manual) D-Dimer ABG pH POC ABG pCO2 POC ABG pO2 ABG pO2 ABG HCO3 ABG O2 Saturation ABG Base Excess ABG Oxyhemoglobin ABG Sodium ABG Chloride ABG Glucose Oxyhemoglobin Carboxyhemoglobin Sodium Potassium Chloride Carbon Dioxide BUN Creatinine Glucose POC Glucose 185 H 297 H 183 H Hemoglobin A1c Magnesium Ferritin AST ALT Alkaline Phosphatase Lactate Dehydrogenase C-Reactive Protein Total Protein Albumin Arterial Blood Glucose Coronavirus (PCR) 05/28/21 05/29/21 05/29/21 21:19 07:34 11:19 WBC MCV MCH MCHC RDW Lymph % (Auto) [place]ver % (Auto) Eos % (Auto) Lymph # (Auto) [place]ver # (Auto) Eos # (Auto) Baso # (Auto) Seg Neutrophils % Seg Neuts % (Manual) Lymphocytes % (Manual) Seg Neutrophils # Seg Neutrophils # Man Lymphocytes # (Manual) D-Dimer ABG pH POC ABG pCO2 POC ABG pO2 ABG pO2 ABG HCO3 ABG O2 Saturation ABG Base Excess ABG Oxyhemoglobin ABG Sodium ABG Chloride ABG Glucose Oxyhemoglobin Carboxyhemoglobin Sodium Potassium Chloride Carbon Dioxide BUN Creatinine Glucose POC Glucose 274 H 139 H 293 H Hemoglobin A1c Magnesium Ferritin AST ALT Alkaline Phosphatase Lactate Dehydrogenase C-Reactive Protein Total Protein Albumin Arterial Blood Glucose Coronavirus (PCR) 05/29/21 05/29/21 05/30/21 16:36 22:44 05:55 WBC MCV MCH MCHC RDW 21.3 H Lymph % (Auto) 8.0 L Carver % (Auto) Eos % (Auto) Lymph # (Auto) 0.6 L Carver # (Auto) Eos # (Auto) Baso # (Auto) Seg Neutrophils % 88.6 H Seg Neuts % (Manual) Lymphocytes % (Manual) Seg Neutrophils # Seg Neutrophils # Man Lymphocytes # (Manual) D-Dimer ABG pH POC ABG pCO2 POC ABG pO2 ABG pO2 ABG HCO3 ABG O2 Saturation ABG Base Excess ABG Oxyhemoglobin ABG Sodium ABG Chloride ABG Glucose Oxyhemoglobin Carboxyhemoglobin Sodium Potassium Chloride Carbon Dioxide BUN Creatinine Glucose POC Glucose 299 H 160 H Hemoglobin A1c Magnesium Ferritin AST ALT Alkaline Phosphatase Lactate Dehydrogenase C-Reactive Protein Total Protein Albumin Arterial Blood Glucose Coronavirus (PCR) 05/30/21 05/30/21 05/30/21 05:55 08:04 11:13 WBC MCV MCH MCHC RDW Lymph % (Auto) [place]ver % (Auto) Eos % (Auto) Lymph # (Auto) [place]ver # (Auto) Eos # (Auto) Baso # (Auto) Seg Neutrophils % Seg Neuts % (Manual) Lymphocytes % (Manual) Seg Neutrophils # Seg Neutrophils # Man Lymphocytes # (Manual) D-Dimer ABG pH POC ABG pCO2 POC ABG pO2 ABG pO2 ABG HCO3 ABG O2 Saturation ABG Base Excess ABG Oxyhemoglobin ABG Sodium ABG Chloride ABG Glucose Oxyhemoglobin Carboxyhemoglobin Sodium Potassium Chloride Carbon Dioxide BUN 19 H Creatinine 0.2 L Glucose 209 H POC Glucose 157 H 275 H Hemoglobin A1c Magnesium Ferritin AST ALT Alkaline Phosphatase Lactate Dehydrogenase C-Reactive Protein Total Protein Albumin Arterial Blood Glucose Coronavirus (PCR) 05/30/21 05/30/21 05/31/21 17:08 22:12 07:36 WBC MCV MCH MCHC RDW Lymph % (Auto) Carver % (Auto) Eos % (Auto) Lymph # (Auto) Carver # (Auto) Eos # (Auto) Baso # (Auto) Seg Neutrophils % Seg Neuts % (Manual) Lymphocytes % (Manual) Seg Neutrophils # Seg Neutrophils # Man Lymphocytes # (Manual) D-Dimer ABG pH POC ABG pCO2 POC ABG pO2 ABG pO2 ABG HCO3 ABG O2 Saturation ABG Base Excess ABG Oxyhemoglobin ABG Sodium ABG Chloride ABG Glucose Oxyhemoglobin Carboxyhemoglobin Sodium Potassium Chloride Carbon Dioxide BUN Creatinine Glucose POC Glucose 154 H 275 H 138 H Hemoglobin A1c Magnesium Ferritin AST ALT Alkaline Phosphatase Lactate Dehydrogenase C-Reactive Protein Total Protein Albumin Arterial Blood Glucose Coronavirus (PCR) 05/31/21 05/31/21 05/31/21 11:17 16:55 21:25 WBC MCV MCH MCHC RDW Lymph % (Auto) Carver % (Auto) Eos % (Auto) Lymph # (Auto) Carver # (Auto) Eos # (Auto) Baso # (Auto) Seg Neutrophils % Seg Neuts % (Manual) Lymphocytes % (Manual) Seg Neutrophils # Seg Neutrophils # Man Lymphocytes # (Manual) D-Dimer ABG pH POC ABG pCO2 POC ABG pO2 ABG pO2 ABG HCO3 ABG O2 Saturation ABG Base Excess ABG Oxyhemoglobin ABG Sodium ABG Chloride ABG Glucose Oxyhemoglobin Carboxyhemoglobin Sodium Potassium Chloride Carbon Dioxide BUN Creatinine Glucose POC Glucose 258 H 215 H 318 H Hemoglobin A1c Magnesium Ferritin AST ALT Alkaline Phosphatase Lactate Dehydrogenase C-Reactive Protein Total Protein Albumin Arterial Blood Glucose Coronavirus (PCR) 06/01/21 06/01/21 06/01/21 07:23 11:38 16:52 WBC MCV MCH MCHC RDW Lymph % (Auto) Carver % (Auto) Eos % (Auto) Lymph # (Auto) Carver # (Auto) Eos # (Auto) Baso # (Auto) Seg Neutrophils % Seg Neuts % (Manual) Lymphocytes % (Manual) Seg Neutrophils # Seg Neutrophils # Man Lymphocytes # (Manual) D-Dimer ABG pH POC ABG pCO2 POC ABG pO2 ABG pO2 ABG HCO3 ABG O2 Saturation ABG Base Excess ABG Oxyhemoglobin ABG Sodium ABG Chloride ABG Glucose Oxyhemoglobin Carboxyhemoglobin Sodium Potassium Chloride Carbon Dioxide BUN Creatinine Glucose POC Glucose 157 H 259 H 150 H Hemoglobin A1c Magnesium Ferritin AST ALT Alkaline Phosphatase Lactate Dehydrogenase C-Reactive Protein Total Protein Albumin Arterial Blood Glucose Coronavirus (PCR) 06/01/21 06/02/21 06/02/21 23:16 05:34 05:34 WBC MCV MCH MCHC RDW 21.3 H Lymph % (Auto) 9.6 L Carver % (Auto) Eos % (Auto) Lymph # (Auto) 0.6 L Carver # (Auto) Eos # (Auto) Baso # (Auto) Seg Neutrophils % 86.2 H Seg Neuts % (Manual) Lymphocytes % (Manual) Seg Neutrophils # Seg Neutrophils # Man Lymphocytes # (Manual) D-Dimer ABG pH POC ABG pCO2 POC ABG pO2 ABG pO2 ABG HCO3 ABG O2 Saturation ABG Base Excess ABG Oxyhemoglobin ABG Sodium ABG Chloride ABG Glucose Oxyhemoglobin Carboxyhemoglobin Sodium 136 L Potassium Chloride Carbon Dioxide BUN Creatinine 0.2 L Glucose 186 H POC Glucose 247 H Hemoglobin A1c Magnesium Ferritin AST ALT 69 H Alkaline Phosphatase Lactate Dehydrogenase C-Reactive Protein Total Protein 6.1 L Albumin 3.2 L Arterial Blood Glucose Coronavirus (PCR) 06/02/21 06/02/21 06/02/21 11:25 18:23 21:32 WBC MCV MCH MCHC RDW Lymph % (Auto) Carver % (Auto) Eos % (Auto) Lymph # (Auto) Carver # (Auto) Eos # (Auto) Baso # (Auto) Seg Neutrophils % Seg Neuts % (Manual) Lymphocytes % (Manual) Seg Neutrophils # Seg Neutrophils # Man Lymphocytes # (Manual) D-Dimer ABG pH POC ABG pCO2 POC ABG pO2 ABG pO2 ABG HCO3 ABG O2 Saturation ABG Base Excess ABG Oxyhemoglobin ABG Sodium ABG Chloride ABG Glucose Oxyhemoglobin Carboxyhemoglobin Sodium Potassium Chloride Carbon Dioxide BUN Creatinine Glucose POC Glucose 157 H 299 H 246 H Hemoglobin A1c Magnesium Ferritin AST ALT Alkaline Phosphatase Lactate Dehydrogenase C-Reactive Protein Total Protein Albumin Arterial Blood Glucose Coronavirus (PCR) 06/03/21 06/03/21 06/03/21 08:12 12:21 17:31 WBC MCV MCH MCHC RDW Lymph % (Auto) Carver % (Auto) Eos % (Auto) Lymph # (Auto) Carver # (Auto) Eos # (Auto) Baso # (Auto) Seg Neutrophils % Seg Neuts % (Manual) Lymphocytes % (Manual) Seg Neutrophils # Seg Neutrophils # Man Lymphocytes # (Manual) D-Dimer ABG pH POC ABG pCO2 POC ABG pO2 ABG pO2 ABG HCO3 ABG O2 Saturation ABG Base Excess ABG Oxyhemoglobin ABG Sodium ABG Chloride ABG Glucose Oxyhemoglobin Carboxyhemoglobin Sodium Potassium Chloride Carbon Dioxide BUN Creatinine Glucose POC Glucose 153 H 302 H 252 H Hemoglobin A1c Magnesium Ferritin AST ALT Alkaline Phosphatase Lactate Dehydrogenase C-Reactive Protein Total Protein Albumin Arterial Blood Glucose Coronavirus (PCR) 06/03/21 06/04/21 06/04/21 22:08 11:12 16:01 WBC MCV MCH MCHC RDW Lymph % (Auto) Carver % (Auto) Eos % (Auto) Lymph # (Auto) Carver # (Auto) Eos # (Auto) Baso # (Auto) Seg Neutrophils % Seg Neuts % (Manual) Lymphocytes % (Manual) Seg Neutrophils # Seg Neutrophils # Man Lymphocytes # (Manual) D-Dimer ABG pH POC ABG pCO2 POC ABG pO2 ABG pO2 ABG HCO3 ABG O2 Saturation ABG Base Excess ABG Oxyhemoglobin ABG Sodium ABG Chloride ABG Glucose Oxyhemoglobin Carboxyhemoglobin Sodium Potassium Chloride Carbon Dioxide BUN Creatinine Glucose POC Glucose 224 H 259 H 238 H Hemoglobin A1c Magnesium Ferritin AST ALT Alkaline Phosphatase Lactate Dehydrogenase C-Reactive Protein Total Protein Albumin Arterial Blood Glucose Coronavirus (PCR) 06/04/21 06/05/21 06/05/21 21:26 05:26 05:26 WBC MCV MCH MCHC RDW Lymph % (Auto) Carver % (Auto) Eos % (Auto) Lymph # (Auto) Carver # (Auto) Eos # (Auto) Baso # (Auto) Seg Neutrophils % Seg Neuts % (Manual) Lymphocytes % (Manual) Seg Neutrophils # Seg Neutrophils # Man Lymphocytes # (Manual) D-Dimer 488.49 H ABG pH POC ABG pCO2 POC ABG pO2 ABG pO2 ABG HCO3 ABG O2 Saturation ABG Base Excess ABG Oxyhemoglobin ABG Sodium ABG Chloride ABG Glucose Oxyhemoglobin Carboxyhemoglobin Sodium Potassium Chloride Carbon Dioxide BUN Creatinine 0.2 L Glucose 198 H POC Glucose 257 H Hemoglobin A1c Magnesium Ferritin AST ALT Alkaline Phosphatase Lactate Dehydrogenase 475 H C-Reactive Protein Total Protein Albumin Arterial Blood Glucose Coronavirus (PCR) 06/05/21 06/05/21 06/05/21 07:20 08:30 11:00 WBC MCV MCH MCHC RDW Lymph % (Auto) Carver % (Auto) Eos % (Auto) Lymph # (Auto) Carver # (Auto) Eos # (Auto) Baso # (Auto) Seg Neutrophils % Seg Neuts % (Manual) Lymphocytes % (Manual) Seg Neutrophils # Seg Neutrophils # Man Lymphocytes # (Manual) D-Dimer ABG pH POC ABG pCO2 POC ABG pO2 ABG pO2 ABG HCO3 ABG O2 Saturation ABG Base Excess ABG Oxyhemoglobin ABG Sodium ABG Chloride ABG Glucose Oxyhemoglobin Carboxyhemoglobin Sodium Potassium Chloride Carbon Dioxide BUN Creatinine Glucose POC Glucose 146 H 246 H Hemoglobin A1c Magnesium Ferritin AST ALT Alkaline Phosphatase Lactate Dehydrogenase C-Reactive Protein Total Protein Albumin Arterial Blood Glucose Coronavirus (PCR) Positive A 06/05/21 06/05/21 06/06/21 16:50 22:30 07:57 WBC MCV MCH MCHC RDW Lymph % (Auto) Carver % (Auto) Eos % (Auto) Lymph # (Auto) Carver # (Auto) Eos # (Auto) Baso # (Auto) Seg Neutrophils % Seg Neuts % (Manual) Lymphocytes % (Manual) Seg Neutrophils # Seg Neutrophils # Man Lymphocytes # (Manual) D-Dimer ABG pH POC ABG pCO2 POC ABG pO2 ABG pO2 ABG HCO3 ABG O2 Saturation ABG Base Excess ABG Oxyhemoglobin ABG Sodium ABG Chloride ABG Glucose Oxyhemoglobin Carboxyhemoglobin Sodium Potassium Chloride Carbon Dioxide BUN Creatinine Glucose POC Glucose 240 H 174 H 120 H Hemoglobin A1c Magnesium Ferritin AST ALT Alkaline Phosphatase Lactate Dehydrogenase C-Reactive Protein Total Protein Albumin Arterial Blood Glucose Coronavirus (PCR) 06/06/21 06/06/21 06/06/21 11:14 16:50 21:11 WBC MCV MCH MCHC RDW Lymph % (Auto) Carver % (Auto) Eos % (Auto) Lymph # (Auto) Carver # (Auto) Eos # (Auto) Baso # (Auto) Seg Neutrophils % Seg Neuts % (Manual) Lymphocytes % (Manual) Seg Neutrophils # Seg Neutrophils # Man Lymphocytes # (Manual) D-Dimer ABG pH POC ABG pCO2 POC ABG pO2 ABG pO2 ABG HCO3 ABG O2 Saturation ABG Base Excess ABG Oxyhemoglobin ABG Sodium ABG Chloride ABG Glucose Oxyhemoglobin Carboxyhemoglobin Sodium Potassium Chloride Carbon Dioxide BUN Creatinine Glucose POC Glucose 267 H 218 H 124 H Hemoglobin A1c Magnesium Ferritin AST ALT Alkaline Phosphatase Lactate Dehydrogenase C-Reactive Protein Total Protein Albumin Arterial Blood Glucose Coronavirus (PCR) 06/07/21 06/07/2121 11:58 15:59 07:59 WBC MCV MCH MCHC RDW Lymph % (Auto) Carver % (Auto) Eos % (Auto) Lymph # (Auto) Carver # (Auto) Eos # (Auto) Baso # (Auto) Seg Neutrophils % Seg Neuts % (Manual) Lymphocytes % (Manual) Seg Neutrophils # Seg Neutrophils # Man Lymphocytes # (Manual) D-Dimer ABG pH POC ABG pCO2 POC ABG pO2 ABG pO2 ABG HCO3 ABG O2 Saturation ABG Base Excess ABG Oxyhemoglobin ABG Sodium ABG Chloride ABG Glucose Oxyhemoglobin Carboxyhemoglobin Sodium Potassium Chloride Carbon Dioxide BUN Creatinine Glucose POC Glucose 219 H 208 H 192 H Hemoglobin A1c Magnesium Ferritin AST ALT Alkaline Phosphatase Lactate Dehydrogenase C-Reactive Protein Total Protein Albumin Arterial Blood Glucose Coronavirus (PCR) 06/08/21 06/08/21 06/09/21 11:26 23:28 07:33 WBC MCV MCH MCHC RDW Lymph % (Auto) Carver % (Auto) Eos % (Auto) Lymph # (Auto) Carver # (Auto) Eos # (Auto) Baso # (Auto) Seg Neutrophils % Seg Neuts % (Manual) Lymphocytes % (Manual) Seg Neutrophils # Seg Neutrophils # Man Lymphocytes # (Manual) D-Dimer ABG pH POC ABG pCO2 POC ABG pO2 ABG pO2 ABG HCO3 ABG O2 Saturation ABG Base Excess ABG Oxyhemoglobin ABG Sodium ABG Chloride ABG Glucose Oxyhemoglobin Carboxyhemoglobin Sodium Potassium Chloride Carbon Dioxide BUN Creatinine Glucose POC Glucose 307 H 138 H 145 H Hemoglobin A1c Magnesium Ferritin AST ALT Alkaline Phosphatase Lactate Dehydrogenase C-Reactive Protein Total Protein Albumin Arterial Blood Glucose Coronavirus (PCR) 06/09/21 06/09/21 06/09/21 11:01 15:47 21:43 WBC MCV MCH MCHC RDW Lymph % (Auto) Carver % (Auto) Eos % (Auto) Lymph # (Auto) Carver # (Auto) Eos # (Auto) Baso # (Auto) Seg Neutrophils % Seg Neuts % (Manual) Lymphocytes % (Manual) Seg Neutrophils # Seg Neutrophils # Man Lymphocytes # (Manual) D-Dimer ABG pH POC ABG pCO2 POC ABG pO2 ABG pO2 ABG HCO3 ABG O2 Saturation ABG Base Excess ABG Oxyhemoglobin ABG Sodium ABG Chloride ABG Glucose Oxyhemoglobin Carboxyhemoglobin Sodium Potassium Chloride Carbon Dioxide BUN Creatinine Glucose POC Glucose 266 H 305 H 223 H Hemoglobin A1c Magnesium Ferritin AST ALT Alkaline Phosphatase Lactate Dehydrogenase C-Reactive Protein Total Protein Albumin Arterial Blood Glucose Coronavirus (PCR) 06/10/21 06/10/21 06/10/21 08:27 12:10 17:45 WBC MCV MCH MCHC RDW Lymph % (Auto) Carver % (Auto) Eos % (Auto) Lymph # (Auto) Carver # (Auto) Eos # (Auto) Baso # (Auto) Seg Neutrophils % Seg Neuts % (Manual) Lymphocytes % (Manual) Seg Neutrophils # Seg Neutrophils # Man Lymphocytes # (Manual) D-Dimer ABG pH POC ABG pCO2 POC ABG pO2 ABG pO2 ABG HCO3 ABG O2 Saturation ABG Base Excess ABG Oxyhemoglobin ABG Sodium ABG Chloride ABG Glucose Oxyhemoglobin Carboxyhemoglobin Sodium Potassium Chloride Carbon Dioxide BUN Creatinine Glucose POC Glucose 174 H 306 H 210 H Hemoglobin A1c Magnesium Ferritin AST ALT Alkaline Phosphatase Lactate Dehydrogenase C-Reactive Protein Total Protein Albumin Arterial Blood Glucose Coronavirus (PCR) 06/10/21 06/11/21 06/11/21 21:45 09:38 09:38 WBC MCV MCH MCHC RDW 20.9 H Lymph % (Auto) Carver % (Auto) Eos % (Auto) Lymph # (Auto) [place]ver # (Auto) Eos # (Auto) Baso # (Auto) Seg Neutrophils % Seg Neuts % (Manual) Lymphocytes % (Manual) Seg Neutrophils # Seg Neutrophils # Man Lymphocytes # (Manual) D-Dimer ABG pH POC ABG pCO2 POC ABG pO2 ABG pO2 ABG HCO3 ABG O2 Saturation ABG Base Excess ABG Oxyhemoglobin ABG Sodium ABG Chloride ABG Glucose Oxyhemoglobin Carboxyhemoglobin Sodium 135 L Potassium Chloride 90.8 L Carbon Dioxide 36 H BUN 29 H Creatinine 0.2 L Glucose 258 H POC Glucose 262 H Hemoglobin A1c Magnesium Ferritin AST ALT Alkaline Phosphatase Lactate Dehydrogenase C-Reactive Protein Total Protein Albumin Arterial Blood Glucose Coronavirus (PCR) 06/11/21 06/11/21 06/11/21 11:20 15:49 22:57 WBC MCV MCH MCHC RDW Lymph % (Auto) [place] % (Auto) Eos % (Auto) Lymph # (Auto) [place]ver # (Auto) Eos # (Auto) Baso # (Auto) Seg Neutrophils % Seg Neuts % (Manual) Lymphocytes % (Manual) Seg Neutrophils # Seg Neutrophils # Man Lymphocytes # (Manual) D-Dimer ABG pH POC ABG pCO2 POC ABG pO2 ABG pO2 ABG HCO3 ABG O2 Saturation ABG Base Excess ABG Oxyhemoglobin ABG Sodium ABG Chloride ABG Glucose Oxyhemoglobin Carboxyhemoglobin Sodium Potassium Chloride Carbon Dioxide BUN Creatinine Glucose POC Glucose 269 H 206 H 211 H Hemoglobin A1c Magnesium Ferritin AST ALT Alkaline Phosphatase Lactate Dehydrogenase C-Reactive Protein Total Protein Albumin Arterial Blood Glucose Coronavirus (PCR) 06/12/21 06/12/21 06/12/21 08:07 11:24 18:08 WBC MCV MCH MCHC RDW Lymph % (Auto) [place] % (Auto) Eos % (Auto) Lymph # (Auto) [place]ver # (Auto) Eos # (Auto) Baso # (Auto) Seg Neutrophils % Seg Neuts % (Manual) Lymphocytes % (Manual) Seg Neutrophils # Seg Neutrophils # Man Lymphocytes # (Manual) D-Dimer ABG pH POC ABG pCO2 POC ABG pO2 ABG pO2 ABG HCO3 ABG O2 Saturation ABG Base Excess ABG Oxyhemoglobin ABG Sodium ABG Chloride ABG Glucose Oxyhemoglobin Carboxyhemoglobin Sodium Potassium Chloride Carbon Dioxide BUN Creatinine Glucose POC Glucose 149 H 270 H 166 H Hemoglobin A1c Magnesium Ferritin AST ALT Alkaline Phosphatase Lactate Dehydrogenase C-Reactive Protein Total Protein Albumin Arterial Blood Glucose Coronavirus (PCR) 06/12/21 06/13/21 06/13/21 20:22 07:50 11:18 WBC MCV MCH MCHC RDW Lymph % (Auto) [place] % (Auto) Eos % (Auto) Lymph # (Auto) [place]ver # (Auto) Eos # (Auto) Baso # (Auto) Seg Neutrophils % Seg Neuts % (Manual) Lymphocytes % (Manual) Seg Neutrophils # Seg Neutrophils # Man Lymphocytes # (Manual) D-Dimer ABG pH POC ABG pCO2 POC ABG pO2 ABG pO2 ABG HCO3 ABG O2 Saturation ABG Base Excess ABG Oxyhemoglobin ABG Sodium ABG Chloride ABG Glucose Oxyhemoglobin Carboxyhemoglobin Sodium Potassium Chloride Carbon Dioxide BUN Creatinine Glucose POC Glucose 155 H 163 H 293 H Hemoglobin A1c Magnesium Ferritin AST ALT Alkaline Phosphatase Lactate Dehydrogenase C-Reactive Protein Total Protein Albumin Arterial Blood Glucose Coronavirus (PCR) 06/13/21 06/13/21 06/14/21 16:41 21:00 07:41 WBC MCV MCH MCHC RDW Lymph % (Auto) [place] % (Auto) Eos % (Auto) Lymph # (Auto) [place]ver # (Auto) Eos # (Auto) Baso # (Auto) Seg Neutrophils % Seg Neuts % (Manual) Lymphocytes % (Manual) Seg Neutrophils # Seg Neutrophils # Man Lymphocytes # (Manual) D-Dimer ABG pH POC ABG pCO2 POC ABG pO2 ABG pO2 ABG HCO3 ABG O2 Saturation ABG Base Excess ABG Oxyhemoglobin ABG Sodium ABG Chloride ABG Glucose Oxyhemoglobin Carboxyhemoglobin Sodium Potassium Chloride Carbon Dioxide BUN Creatinine Glucose POC Glucose 232 H 183 H 52 L Hemoglobin A1c Magnesium Ferritin AST ALT Alkaline Phosphatase Lactate Dehydrogenase C-Reactive Protein Total Protein Albumin Arterial Blood Glucose Coronavirus (PCR) 06/14/21 06/14/21 06/14/21 11:44 17:44 21:44 WBC MCV MCH MCHC RDW Lymph % (Auto) [place] % (Auto) Eos % (Auto) Lymph # (Auto) [place]ver # (Auto) Eos # (Auto) Baso # (Auto) Seg Neutrophils % Seg Neuts % (Manual) Lymphocytes % (Manual) Seg Neutrophils # Seg Neutrophils # Man Lymphocytes # (Manual) D-Dimer ABG pH POC ABG pCO2 POC ABG pO2 ABG pO2 ABG HCO3 ABG O2 Saturation ABG Base Excess ABG Oxyhemoglobin ABG Sodium ABG Chloride ABG Glucose Oxyhemoglobin Carboxyhemoglobin Sodium Potassium Chloride Carbon Dioxide BUN Creatinine Glucose POC Glucose 205 H 293 H 288 H Hemoglobin A1c Magnesium Ferritin AST ALT Alkaline Phosphatase Lactate Dehydrogenase C-Reactive Protein Total Protein Albumin Arterial Blood Glucose Coronavirus (PCR) 06/15/21 06/15/21 06/15/21 08:00 08:00 11:40 WBC MCV MCH 33 H MCHC 35 H RDW 20.3 H Lymph % (Auto) [place] % (Auto) Eos % (Auto) Lymph # (Auto) [place]ver # (Auto) Eos # (Auto) Baso # (Auto) Seg Neutrophils % Seg Neuts % (Manual) Lymphocytes % (Manual) Seg Neutrophils # Seg Neutrophils # Man Lymphocytes # (Manual) D-Dimer ABG pH POC ABG pCO2 POC ABG pO2 ABG pO2 ABG HCO3 ABG O2 Saturation ABG Base Excess ABG Oxyhemoglobin ABG Sodium ABG Chloride ABG Glucose Oxyhemoglobin Carboxyhemoglobin Sodium Potassium 3.2 L Chloride 95.3 L Carbon Dioxide 32 H BUN 23 H Creatinine 0.2 L Glucose 103 H POC Glucose 204 H Hemoglobin A1c Magnesium Ferritin AST ALT Alkaline Phosphatase Lactate Dehydrogenase C-Reactive Protein Total Protein Albumin Arterial Blood Glucose Coronavirus (PCR) 06/15/21 06/15/21 06/16/21 16:17 22:00 11:43 WBC MCV MCH MCHC RDW Lymph % (Auto) [place] % (Auto) Eos % (Auto) Lymph # (Auto) [place] # (Auto) Eos # (Auto) Baso # (Auto) Seg Neutrophils % Seg Neuts % (Manual) Lymphocytes % (Manual) Seg Neutrophils # Seg Neutrophils # Man Lymphocytes # (Manual) D-Dimer ABG pH POC ABG pCO2 POC ABG pO2 ABG pO2 ABG HCO3 ABG O2 Saturation ABG Base Excess ABG Oxyhemoglobin ABG Sodium ABG Chloride ABG Glucose Oxyhemoglobin Carboxyhemoglobin Sodium Potassium Chloride Carbon Dioxide BUN Creatinine Glucose POC Glucose 295 H 233 H 201 H Hemoglobin A1c Magnesium Ferritin AST ALT Alkaline Phosphatase Lactate Dehydrogenase C-Reactive Protein Total Protein Albumin Arterial Blood Glucose Coronavirus (PCR) 06/16/21 06/16/21 06/17/21 17:21 21:27 07:12 WBC MCV MCH MCHC RDW Lymph % (Auto) [place] % (Auto) Eos % (Auto) Lymph # (Auto) [place] # (Auto) Eos # (Auto) Baso # (Auto) Seg Neutrophils % Seg Neuts % (Manual) Lymphocytes % (Manual) Seg Neutrophils # Seg Neutrophils # Man Lymphocytes # (Manual) D-Dimer ABG pH POC ABG pCO2 POC ABG pO2 ABG pO2 ABG HCO3 ABG O2 Saturation ABG Base Excess ABG Oxyhemoglobin ABG Sodium ABG Chloride ABG Glucose Oxyhemoglobin Carboxyhemoglobin Sodium Potassium Chloride Carbon Dioxide BUN Creatinine Glucose POC Glucose 299 H 290 H 67 L Hemoglobin A1c Magnesium Ferritin AST ALT Alkaline Phosphatase Lactate Dehydrogenase C-Reactive Protein Total Protein Albumin Arterial Blood Glucose Coronavirus (PCR) 06/17/21 06/17/21 06/17/21 11:53 17:02 22:25 WBC MCV MCH MCHC RDW Lymph % (Auto) [place] % (Auto) Eos % (Auto) Lymph # (Auto) [place] # (Auto) Eos # (Auto) Baso # (Auto) Seg Neutrophils % Seg Neuts % (Manual) Lymphocytes % (Manual) Seg Neutrophils # Seg Neutrophils # Man Lymphocytes # (Manual) D-Dimer ABG pH POC ABG pCO2 POC ABG pO2 ABG pO2 ABG HCO3 ABG O2 Saturation ABG Base Excess ABG Oxyhemoglobin ABG Sodium ABG Chloride ABG Glucose Oxyhemoglobin Carboxyhemoglobin Sodium Potassium Chloride Carbon Dioxide BUN Creatinine Glucose POC Glucose 199 H 362 H 235 H Hemoglobin A1c Magnesium Ferritin AST ALT Alkaline Phosphatase Lactate Dehydrogenase C-Reactive Protein Total Protein Albumin Arterial Blood Glucose Coronavirus (PCR) 06/18/21 06/18/21 06/18/21 08:00 11:48 16:40 WBC MCV MCH MCHC RDW Lymph % (Auto) [place] % (Auto) Eos % (Auto) Lymph # (Auto) [place] # (Auto) Eos # (Auto) Baso # (Auto) Seg Neutrophils % Seg Neuts % (Manual) Lymphocytes % (Manual) Seg Neutrophils # Seg Neutrophils # Man Lymphocytes # (Manual) D-Dimer ABG pH POC ABG pCO2 POC ABG pO2 ABG pO2 ABG HCO3 ABG O2 Saturation ABG Base Excess ABG Oxyhemoglobin ABG Sodium ABG Chloride ABG Glucose Oxyhemoglobin Carboxyhemoglobin Sodium Potassium Chloride Carbon Dioxide BUN Creatinine Glucose POC Glucose 62 L 211 H 305 H Hemoglobin A1c Magnesium Ferritin AST ALT Alkaline Phosphatase Lactate Dehydrogenase C-Reactive Protein Total Protein Albumin Arterial Blood Glucose Coronavirus (PCR) 06/18/21 06/19/21 06/19/21 21:26 07:27 11:32 WBC MCV MCH MCHC RDW Lymph % (Auto) [place] % (Auto) Eos % (Auto) Lymph # (Auto) [place] # (Auto) Eos # (Auto) Baso # (Auto) Seg Neutrophils % Seg Neuts % (Manual) Lymphocytes % (Manual) Seg Neutrophils # Seg Neutrophils # Man Lymphocytes # (Manual) D-Dimer ABG pH POC ABG pCO2 POC ABG pO2 ABG pO2 ABG HCO3 ABG O2 Saturation ABG Base Excess ABG Oxyhemoglobin ABG Sodium ABG Chloride ABG Glucose Oxyhemoglobin Carboxyhemoglobin Sodium Potassium Chloride Carbon Dioxide BUN Creatinine Glucose POC Glucose 149 H 60 L 208 H Hemoglobin A1c Magnesium Ferritin AST ALT Alkaline Phosphatase Lactate Dehydrogenase C-Reactive Protein Total Protein Albumin Arterial Blood Glucose Coronavirus (PCR) 06/19/21 06/19/21 06/20/21 16:06 22:28 07:48 WBC MCV MCH MCHC RDW Lymph % (Auto) [place] % (Auto) Eos % (Auto) Lymph # (Auto) [place] # (Auto) Eos # (Auto) Baso # (Auto) Seg Neutrophils % Seg Neuts % (Manual) Lymphocytes % (Manual) Seg Neutrophils # Seg Neutrophils # Man Lymphocytes # (Manual) D-Dimer ABG pH POC ABG pCO2 POC ABG pO2 ABG pO2 ABG HCO3 ABG O2 Saturation ABG Base Excess ABG Oxyhemoglobin ABG Sodium ABG Chloride ABG Glucose Oxyhemoglobin Carboxyhemoglobin Sodium Potassium Chloride Carbon Dioxide BUN Creatinine Glucose POC Glucose 266 H 166 H 58 L Hemoglobin A1c Magnesium Ferritin AST ALT Alkaline Phosphatase Lactate Dehydrogenase C-Reactive Protein Total Protein Albumin Arterial Blood Glucose Coronavirus (PCR) 06/20/21 06/20/21 06/20/21 09:09 11:04 16:01 WBC MCV MCH MCHC RDW Lymph % (Auto) [place] % (Auto) Eos % (Auto) Lymph # (Auto) [place] # (Auto) Eos # (Auto) Baso # (Auto) Seg Neutrophils % Seg Neuts % (Manual) Lymphocytes % (Manual) Seg Neutrophils # Seg Neutrophils # Man Lymphocytes # (Manual) D-Dimer ABG pH POC ABG pCO2 POC ABG pO2 ABG pO2 ABG HCO3 ABG O2 Saturation ABG Base Excess ABG Oxyhemoglobin ABG Sodium ABG Chloride ABG Glucose Oxyhemoglobin Carboxyhemoglobin Sodium Potassium Chloride Carbon Dioxide BUN Creatinine Glucose POC Glucose 146 H 225 H 330 H Hemoglobin A1c Magnesium Ferritin AST ALT Alkaline Phosphatase Lactate Dehydrogenase C-Reactive Protein Total Protein Albumin Arterial Blood Glucose Coronavirus (PCR) 06/20/21 06/21/21 06/21/21 20:46 06:45 06:45 WBC MCV MCH MCHC RDW 20.0 H Lymph % (Auto) [place] % (Auto) Eos % (Auto) Lymph # (Auto) [place] # (Auto) Eos # (Auto) Baso # (Auto) Seg Neutrophils % Seg Neuts % (Manual) Lymphocytes % (Manual) Seg Neutrophils # Seg Neutrophils # Man Lymphocytes # (Manual) D-Dimer ABG pH POC ABG pCO2 POC ABG pO2 ABG pO2 ABG HCO3 ABG O2 Saturation ABG Base Excess ABG Oxyhemoglobin ABG Sodium ABG Chloride ABG Glucose Oxyhemoglobin Carboxyhemoglobin Sodium Potassium 2.9 L* Chloride 95.0 L Carbon Dioxide 31 H BUN 23 H Creatinine 0.2 L Glucose 45 L POC Glucose 215 H Hemoglobin A1c Magnesium Ferritin AST ALT Alkaline Phosphatase Lactate Dehydrogenase C-Reactive Protein Total Protein Albumin Arterial Blood Glucose Coronavirus (PCR) 06/21/21 06/21/21 06/21/21 07:38 09:06 12:40 WBC MCV MCH MCHC RDW Lymph % (Auto) [place] % (Auto) Eos % (Auto) Lymph # (Auto) [place] # (Auto) Eos # (Auto) Baso # (Auto) Seg Neutrophils % Seg Neuts % (Manual) Lymphocytes % (Manual) Seg Neutrophils # Seg Neutrophils # Man Lymphocytes # (Manual) D-Dimer ABG pH POC ABG pCO2 POC ABG pO2 ABG pO2 ABG HCO3 ABG O2 Saturation ABG Base Excess ABG Oxyhemoglobin ABG Sodium ABG Chloride ABG Glucose Oxyhemoglobin Carboxyhemoglobin Sodium Potassium Chloride Carbon Dioxide BUN Creatinine Glucose POC Glucose 50 L 196 H 205 H Hemoglobin A1c Magnesium Ferritin AST ALT Alkaline Phosphatase Lactate Dehydrogenase C-Reactive Protein Total Protein Albumin Arterial Blood Glucose Coronavirus (PCR) 06/21/21 06/22/21 06/22/21 21:36 06:25 07:15 WBC MCV MCH MCHC RDW Lymph % (Auto) [place] % (Auto) Eos % (Auto) Lymph # (Auto) [place] # (Auto) Eos # (Auto) Baso # (Auto) Seg Neutrophils % Seg Neuts % (Manual) Lymphocytes % (Manual) Seg Neutrophils # Seg Neutrophils # Man Lymphocytes # (Manual) D-Dimer ABG pH POC ABG pCO2 POC ABG pO2 ABG pO2 ABG HCO3 ABG O2 Saturation ABG Base Excess ABG Oxyhemoglobin ABG Sodium ABG Chloride ABG Glucose Oxyhemoglobin Carboxyhemoglobin Sodium Potassium Chloride Carbon Dioxide BUN 20 H Creatinine 0.2 L Glucose POC Glucose 245 H 66 L Hemoglobin A1c Magnesium Ferritin AST ALT Alkaline Phosphatase Lactate Dehydrogenase C-Reactive Protein Total Protein Albumin Arterial Blood Glucose Coronavirus (PCR) 06/22/21 06/22/21 06/22/21 11:03 16:07 22:03 WBC MCV MCH MCHC RDW Lymph % (Auto) [place] % (Auto) Eos % (Auto) Lymph # (Auto) [place] # (Auto) Eos # (Auto) Baso # (Auto) Seg Neutrophils % Seg Neuts % (Manual) Lymphocytes % (Manual) Seg Neutrophils # Seg Neutrophils # Man Lymphocytes # (Manual) D-Dimer ABG pH POC ABG pCO2 POC ABG pO2 ABG pO2 ABG HCO3 ABG O2 Saturation ABG Base Excess ABG Oxyhemoglobin ABG Sodium ABG Chloride ABG Glucose Oxyhemoglobin Carboxyhemoglobin Sodium Potassium Chloride Carbon Dioxide BUN Creatinine Glucose POC Glucose 184 H 326 H 138 H Hemoglobin A1c Magnesium Ferritin AST ALT Alkaline Phosphatase Lactate Dehydrogenase C-Reactive Protein Total Protein Albumin Arterial Blood Glucose Coronavirus (PCR) 06/23/21 06/23/21 06/23/21 07:19 10:34 16:35 WBC MCV MCH MCHC RDW Lymph % (Auto) [place] % (Auto) Eos % (Auto) Lymph # (Auto) [place] # (Auto) Eos # (Auto) Baso # (Auto) Seg Neutrophils % Seg Neuts % (Manual) Lymphocytes % (Manual) Seg Neutrophils # Seg Neutrophils # Man Lymphocytes # (Manual) D-Dimer ABG pH POC ABG pCO2 POC ABG pO2 ABG pO2 ABG HCO3 ABG O2 Saturation ABG Base Excess ABG Oxyhemoglobin ABG Sodium ABG Chloride ABG Glucose Oxyhemoglobin Carboxyhemoglobin Sodium Potassium Chloride Carbon Dioxide BUN Creatinine Glucose POC Glucose 69 L 218 H 326 H Hemoglobin A1c Magnesium Ferritin AST ALT Alkaline Phosphatase Lactate Dehydrogenase C-Reactive Protein Total Protein Albumin Arterial Blood Glucose Coronavirus (PCR) 06/23/21 06/24/21 06/24/21 22:44 11:41 16:54 WBC MCV MCH MCHC RDW Lymph % (Auto) [place] % (Auto) Eos % (Auto) Lymph # (Auto) [place] # (Auto) Eos # (Auto) Baso # (Auto) Seg Neutrophils % Seg Neuts % (Manual) Lymphocytes % (Manual) Seg Neutrophils # Seg Neutrophils # Man Lymphocytes # (Manual) D-Dimer ABG pH POC ABG pCO2 POC ABG pO2 ABG pO2 ABG HCO3 ABG O2 Saturation ABG Base Excess ABG Oxyhemoglobin ABG Sodium ABG Chloride ABG Glucose Oxyhemoglobin Carboxyhemoglobin Sodium Potassium Chloride Carbon Dioxide BUN Creatinine Glucose POC Glucose 252 H 217 H 357 H Hemoglobin A1c Magnesium Ferritin AST ALT Alkaline Phosphatase Lactate Dehydrogenase C-Reactive Protein Total Protein Albumin Arterial Blood Glucose Coronavirus (PCR) 06/24/21 06/25/21 06/25/21 20:40 11:51 16:47 WBC MCV MCH MCHC RDW Lymph % (Auto) [place] % (Auto) Eos % (Auto) Lymph # (Auto) [place] # (Auto) Eos # (Auto) Baso # (Auto) Seg Neutrophils % Seg Neuts % (Manual) Lymphocytes % (Manual) Seg Neutrophils # Seg Neutrophils # Man Lymphocytes # (Manual) D-Dimer ABG pH POC ABG pCO2 POC ABG pO2 ABG pO2 ABG HCO3 ABG O2 Saturation ABG Base Excess ABG Oxyhemoglobin ABG Sodium ABG Chloride ABG Glucose Oxyhemoglobin Carboxyhemoglobin Sodium Potassium Chloride Carbon Dioxide BUN Creatinine Glucose POC Glucose 239 H 182 H 229 H Hemoglobin A1c Magnesium Ferritin AST ALT Alkaline Phosphatase Lactate Dehydrogenase C-Reactive Protein Total Protein Albumin Arterial Blood Glucose Coronavirus (PCR) 06/25/21 06/26/21 06/26/21 22:27 07:20 12:19 WBC MCV MCH MCHC RDW Lymph % (Auto) [place] % (Auto) Eos % (Auto) Lymph # (Auto) [place]ver # (Auto) Eos # (Auto) Baso # (Auto) Seg Neutrophils % Seg Neuts % (Manual) Lymphocytes % (Manual) Seg Neutrophils # Seg Neutrophils # Man Lymphocytes # (Manual) D-Dimer ABG pH POC ABG pCO2 POC ABG pO2 ABG pO2 ABG HCO3 ABG O2 Saturation ABG Base Excess ABG Oxyhemoglobin ABG Sodium ABG Chloride ABG Glucose Oxyhemoglobin Carboxyhemoglobin Sodium Potassium 3.2 L D Chloride Carbon Dioxide BUN 20 H Creatinine 0.3 L Glucose POC Glucose 209 H 273 H Hemoglobin A1c Magnesium Ferritin AST ALT 77 H Alkaline Phosphatase Lactate Dehydrogenase C-Reactive Protein Total Protein Albumin 3.3 L Arterial Blood Glucose Coronavirus (PCR) 06/26/21 06/26/21 06/27/21 16:52 20:55 07:14 WBC MCV MCH MCHC RDW Lymph % (Auto) [place] % (Auto) Eos % (Auto) Lymph # (Auto) [place]ver # (Auto) Eos # (Auto) Baso # (Auto) Seg Neutrophils % Seg Neuts % (Manual) Lymphocytes % (Manual) Seg Neutrophils # Seg Neutrophils # Man Lymphocytes # (Manual) D-Dimer ABG pH POC ABG pCO2 POC ABG pO2 ABG pO2 ABG HCO3 ABG O2 Saturation ABG Base Excess ABG Oxyhemoglobin ABG Sodium ABG Chloride ABG Glucose Oxyhemoglobin Carboxyhemoglobin Sodium Potassium Chloride Carbon Dioxide 31 H BUN 19 H Creatinine 0.2 L Glucose 112 H POC Glucose 326 H 220 H Hemoglobin A1c Magnesium Ferritin AST ALT Alkaline Phosphatase Lactate Dehydrogenase C-Reactive Protein Total Protein Albumin Arterial Blood Glucose Coronavirus (PCR) 06/27/21 06/27/21 06/27/21 07:29 10:54 15:49 WBC MCV MCH MCHC RDW Lymph % (Auto) [place] % (Auto) Eos % (Auto) Lymph # (Auto) [place]ver # (Auto) Eos # (Auto) Baso # (Auto) Seg Neutrophils % Seg Neuts % (Manual) Lymphocytes % (Manual) Seg Neutrophils # Seg Neutrophils # Man Lymphocytes # (Manual) D-Dimer ABG pH POC ABG pCO2 POC ABG pO2 ABG pO2 ABG HCO3 ABG O2 Saturation ABG Base Excess ABG Oxyhemoglobin ABG Sodium ABG Chloride ABG Glucose Oxyhemoglobin Carboxyhemoglobin Sodium Potassium Chloride Carbon Dioxide BUN Creatinine Glucose POC Glucose 115 H 228 H 240 H Hemoglobin A1c Magnesium Ferritin AST ALT Alkaline Phosphatase Lactate Dehydrogenase C-Reactive Protein Total Protein Albumin Arterial Blood Glucose Coronavirus (PCR) 06/28/21 06/28/21 06/28/21 05:43 05:43 07:13 WBC MCV MCH 33 H MCHC RDW 19.8 H Lymph % (Auto) [place] % (Auto) Eos % (Auto) Lymph # (Auto) [place]ver # (Auto) Eos # (Auto) Baso # (Auto) Seg Neutrophils % Seg Neuts % (Manual) Lymphocytes % (Manual) Seg Neutrophils # Seg Neutrophils # Man Lymphocytes # (Manual) D-Dimer ABG pH POC ABG pCO2 POC ABG pO2 ABG pO2 ABG HCO3 ABG O2 Saturation ABG Base Excess ABG Oxyhemoglobin ABG Sodium ABG Chloride ABG Glucose Oxyhemoglobin Carboxyhemoglobin Sodium Potassium 3.3 L Chloride Carbon Dioxide BUN 22 H Creatinine 0.2 L Glucose POC Glucose 69 L Hemoglobin A1c Magnesium Ferritin AST ALT 63 H Alkaline Phosphatase Lactate Dehydrogenase C-Reactive Protein Total Protein Albumin 3.3 L Arterial Blood Glucose Coronavirus (PCR) 06/28/21 06/28/21 06/28/21 12:18 15:37 21:01 WBC MCV MCH MCHC RDW Lymph % (Auto) [place]ver % (Auto) Eos % (Auto) Lymph # (Auto) [place]ver # (Auto) Eos # (Auto) Baso # (Auto) Seg Neutrophils % Seg Neuts % (Manual) Lymphocytes % (Manual) Seg Neutrophils # Seg Neutrophils # Man Lymphocytes # (Manual) D-Dimer ABG pH POC ABG pCO2 POC ABG pO2 ABG pO2 ABG HCO3 ABG O2 Saturation ABG Base Excess ABG Oxyhemoglobin ABG Sodium ABG Chloride ABG Glucose Oxyhemoglobin Carboxyhemoglobin Sodium Potassium Chloride Carbon Dioxide BUN Creatinine Glucose POC Glucose 154 H 201 H 191 H Hemoglobin A1c Magnesium Ferritin AST ALT Alkaline Phosphatase Lactate Dehydrogenase C-Reactive Protein Total Protein Albumin Arterial Blood Glucose Coronavirus (PCR) 06/29/21 06/29/21 06/29/21 11:55 15:47 21:06 WBC MCV MCH MCHC RDW Lymph % (Auto) [place]ver % (Auto) Eos % (Auto) Lymph # (Auto) [place]ver # (Auto) Eos # (Auto) Baso # (Auto) Seg Neutrophils % Seg Neuts % (Manual) Lymphocytes % (Manual) Seg Neutrophils # Seg Neutrophils # Man Lymphocytes # (Manual) D-Dimer ABG pH POC ABG pCO2 POC ABG pO2 ABG pO2 ABG HCO3 ABG O2 Saturation ABG Base Excess ABG Oxyhemoglobin ABG Sodium ABG Chloride ABG Glucose Oxyhemoglobin Carboxyhemoglobin Sodium Potassium Chloride Carbon Dioxide BUN Creatinine Glucose POC Glucose 238 H 249 H 155 H Hemoglobin A1c Magnesium Ferritin AST ALT Alkaline Phosphatase Lactate Dehydrogenase C-Reactive Protein Total Protein Albumin Arterial Blood Glucose Coronavirus (PCR) 06/30/21 06/30/21 06/30/21 04:00 07:50 11:50 WBC MCV MCH MCHC RDW Lymph % (Auto) [place]ver % (Auto) Eos % (Auto) Lymph # (Auto) Carver # (Auto) Eos # (Auto) Baso # (Auto) Seg Neutrophils % Seg Neuts % (Manual) Lymphocytes % (Manual) Seg Neutrophils # Seg Neutrophils # Man Lymphocytes # (Manual) D-Dimer ABG pH POC ABG pCO2 POC ABG pO2 ABG pO2 ABG HCO3 ABG O2 Saturation ABG Base Excess ABG Oxyhemoglobin ABG Sodium ABG Chloride ABG Glucose Oxyhemoglobin Carboxyhemoglobin Sodium Potassium 3.5 L Chloride Carbon Dioxide BUN 18 H Creatinine 0.3 L Glucose 111 H POC Glucose 117 H 250 H Hemoglobin A1c Magnesium Ferritin AST ALT Alkaline Phosphatase Lactate Dehydrogenase C-Reactive Protein Total Protein Albumin Arterial Blood Glucose Coronavirus (PCR) 06/30/21 06/30/21 07/01/21 16:05 21:02 07:26 WBC MCV MCH MCHC RDW Lymph % (Auto) [place]ver % (Auto) Eos % (Auto) Lymph # (Auto) Carver # (Auto) Eos # (Auto) Baso # (Auto) Seg Neutrophils % Seg Neuts % (Manual) Lymphocytes % (Manual) Seg Neutrophils # Seg Neutrophils # Man Lymphocytes # (Manual) D-Dimer ABG pH POC ABG pCO2 POC ABG pO2 ABG pO2 ABG HCO3 ABG O2 Saturation ABG Base Excess ABG Oxyhemoglobin ABG Sodium ABG Chloride ABG Glucose Oxyhemoglobin Carboxyhemoglobin Sodium Potassium Chloride Carbon Dioxide BUN Creatinine Glucose POC Glucose 250 H 217 H 111 H Hemoglobin A1c Magnesium Ferritin AST ALT Alkaline Phosphatase Lactate Dehydrogenase C-Reactive Protein Total Protein Albumin Arterial Blood Glucose Coronavirus (PCR) 07/01/21 07/01/21 07/01/21 11:06 15:48 21:31 WBC MCV MCH MCHC RDW Lymph % (Auto) [place]ver % (Auto) Eos % (Auto) Lymph # (Auto) Carver # (Auto) Eos # (Auto) Baso # (Auto) Seg Neutrophils % Seg Neuts % (Manual) Lymphocytes % (Manual) Seg Neutrophils # Seg Neutrophils # Man Lymphocytes # (Manual) D-Dimer ABG pH POC ABG pCO2 POC ABG pO2 ABG pO2 ABG HCO3 ABG O2 Saturation ABG Base Excess ABG Oxyhemoglobin ABG Sodium ABG Chloride ABG Glucose Oxyhemoglobin Carboxyhemoglobin Sodium Potassium Chloride Carbon Dioxide BUN Creatinine Glucose POC Glucose 229 H 239 H 199 H Hemoglobin A1c Magnesium Ferritin AST ALT Alkaline Phosphatase Lactate Dehydrogenase C-Reactive Protein Total Protein Albumin Arterial Blood Glucose Coronavirus (PCR) 07/02/21 07/02/21 07/02/21 11:50 16:44 21:49 WBC MCV MCH MCHC RDW Lymph % (Auto) [place]ver % (Auto) Eos % (Auto) Lymph # (Auto) Carver # (Auto) Eos # (Auto) Baso # (Auto) Seg Neutrophils % Seg Neuts % (Manual) Lymphocytes % (Manual) Seg Neutrophils # Seg Neutrophils # Man Lymphocytes # (Manual) D-Dimer ABG pH POC ABG pCO2 POC ABG pO2 ABG pO2 ABG HCO3 ABG O2 Saturation ABG Base Excess ABG Oxyhemoglobin ABG Sodium ABG Chloride ABG Glucose Oxyhemoglobin Carboxyhemoglobin Sodium Potassium Chloride Carbon Dioxide BUN Creatinine Glucose POC Glucose 230 H 203 H 197 H Hemoglobin A1c Magnesium Ferritin AST ALT Alkaline Phosphatase Lactate Dehydrogenase C-Reactive Protein Total Protein Albumin Arterial Blood Glucose Coronavirus (PCR) 07/03/21 07/03/21 07/03/21 05:46 05:46 11:59 WBC MCV MCH MCHC RDW 19.6 H Lymph % (Auto) Carver % (Auto) Eos % (Auto) Lymph # (Auto) Carver # (Auto) Eos # (Auto) Baso # (Auto) Seg Neutrophils % Seg Neuts % (Manual) Lymphocytes % (Manual) Seg Neutrophils # Seg Neutrophils # Man Lymphocytes # (Manual) D-Dimer ABG pH POC ABG pCO2 POC ABG pO2 ABG pO2 ABG HCO3 ABG O2 Saturation ABG Base Excess ABG Oxyhemoglobin ABG Sodium ABG Chloride ABG Glucose Oxyhemoglobin Carboxyhemoglobin Sodium Potassium 3.2 L Chloride Carbon Dioxide BUN Creatinine 0.3 L Glucose POC Glucose 145 H Hemoglobin A1c Magnesium Ferritin AST ALT Alkaline Phosphatase Lactate Dehydrogenase C-Reactive Protein Total Protein Albumin Arterial Blood Glucose Coronavirus (PCR) 07/03/21 07/03/21 07/04/21 16:40 22:00 06:35 WBC MCV MCH MCHC RDW Lymph % (Auto) Carver % (Auto) Eos % (Auto) Lymph # (Auto) Carver # (Auto) Eos # (Auto) Baso # (Auto) Seg Neutrophils % Seg Neuts % (Manual) Lymphocytes % (Manual) Seg Neutrophils # Seg Neutrophils # Man Lymphocytes # (Manual) D-Dimer ABG pH POC ABG pCO2 POC ABG pO2 ABG pO2 ABG HCO3 ABG O2 Saturation ABG Base Excess ABG Oxyhemoglobin ABG Sodium ABG Chloride ABG Glucose Oxyhemoglobin Carboxyhemoglobin Sodium Potassium Chloride Carbon Dioxide BUN Creatinine 0.3 L Glucose 118 H POC Glucose 176 H 127 H Hemoglobin A1c Magnesium Ferritin AST ALT Alkaline Phosphatase Lactate Dehydrogenase C-Reactive Protein Total Protein Albumin Arterial Blood Glucose Coronavirus (PCR) 07/04/21 07/04/21 07/05/21 12:30 16:38 08:37 WBC MCV MCH MCHC RDW Lymph % (Auto) Carver % (Auto) Eos % (Auto) Lymph # (Auto) Carver # (Auto) Eos # (Auto) Baso # (Auto) Seg Neutrophils % Seg Neuts % (Manual) Lymphocytes % (Manual) Seg Neutrophils # Seg Neutrophils # Man Lymphocytes # (Manual) D-Dimer ABG pH POC ABG pCO2 POC ABG pO2 ABG pO2 ABG HCO3 ABG O2 Saturation ABG Base Excess ABG Oxyhemoglobin ABG Sodium ABG Chloride ABG Glucose Oxyhemoglobin Carboxyhemoglobin Sodium Potassium Chloride Carbon Dioxide BUN Creatinine Glucose POC Glucose 162 H 205 H 115 H Hemoglobin A1c Magnesium Ferritin AST ALT Alkaline Phosphatase Lactate Dehydrogenase C-Reactive Protein Total Protein Albumin Arterial Blood Glucose Coronavirus (PCR) 07/05/21 07/05/21 07/05/21 10:57 16:42 21:14 WBC MCV MCH MCHC RDW Lymph % (Auto) Carver % (Auto) Eos % (Auto) Lymph # (Auto) Carver # (Auto) Eos # (Auto) Baso # (Auto) Seg Neutrophils % Seg Neuts % (Manual) Lymphocytes % (Manual) Seg Neutrophils # Seg Neutrophils # Man Lymphocytes # (Manual) D-Dimer ABG pH POC ABG pCO2 POC ABG pO2 ABG pO2 ABG HCO3 ABG O2 Saturation ABG Base Excess ABG Oxyhemoglobin ABG Sodium ABG Chloride ABG Glucose Oxyhemoglobin Carboxyhemoglobin Sodium Potassium Chloride Carbon Dioxide BUN Creatinine Glucose POC Glucose 151 H 184 H 130 H Hemoglobin A1c Magnesium Ferritin AST ALT Alkaline Phosphatase Lactate Dehydrogenase C-Reactive Protein Total Protein Albumin Arterial Blood Glucose Coronavirus (PCR) 07/06/21 07/06/21 07/06/21 07:31 11:49 16:46 WBC MCV MCH MCHC RDW Lymph % (Auto) Carver % (Auto) Eos % (Auto) Lymph # (Auto) Carver # (Auto) Eos # (Auto) Baso # (Auto) Seg Neutrophils % Seg Neuts % (Manual) Lymphocytes % (Manual) Seg Neutrophils # Seg Neutrophils # Man Lymphocytes # (Manual) D-Dimer ABG pH POC ABG pCO2 POC ABG pO2 ABG pO2 ABG HCO3 ABG O2 Saturation ABG Base Excess ABG Oxyhemoglobin ABG Sodium ABG Chloride ABG Glucose Oxyhemoglobin Carboxyhemoglobin Sodium Potassium Chloride Carbon Dioxide BUN Creatinine Glucose POC Glucose 106 H 173 H 205 H Hemoglobin A1c Magnesium Ferritin AST ALT Alkaline Phosphatase Lactate Dehydrogenase C-Reactive Protein Total Protein Albumin Arterial Blood Glucose Coronavirus (PCR) 07/06/21 07/07/21 07/07/21 21:38 06:00 06:00 WBC 16.1 H MCV MCH MCHC RDW 18.8 H Lymph % (Auto) Carver % (Auto) Eos % (Auto) Lymph # (Auto) Carver # (Auto) 1.1 H Eos # (Auto) Baso # (Auto) 0.2 H Seg Neutrophils % 74.9 H Seg Neuts % (Manual) Lymphocytes % (Manual) Seg Neutrophils # 12.1 H Seg Neutrophils # Man Lymphocytes # (Manual) D-Dimer ABG pH POC ABG pCO2 POC ABG pO2 ABG pO2 ABG HCO3 ABG O2 Saturation ABG Base Excess ABG Oxyhemoglobin ABG Sodium ABG Chloride ABG Glucose Oxyhemoglobin Carboxyhemoglobin Sodium Potassium 3.5 L D Chloride Carbon Dioxide BUN 6 L Creatinine < 0.2 L Glucose 106 H POC Glucose 120 H Hemoglobin A1c Magnesium Ferritin AST ALT Alkaline Phosphatase Lactate Dehydrogenase C-Reactive Protein Total Protein Albumin Arterial Blood Glucose Coronavirus (PCR) 07/07/21 07/07/21 07/07/21 07:10 11:53 15:53 WBC MCV MCH MCHC RDW Lymph % (Auto) Carver % (Auto) Eos % (Auto) Lymph # (Auto) Carver # (Auto) Eos # (Auto) Baso # (Auto) Seg Neutrophils % Seg Neuts % (Manual) Lymphocytes % (Manual) Seg Neutrophils # Seg Neutrophils # Man Lymphocytes # (Manual) D-Dimer ABG pH POC ABG pCO2 POC ABG pO2 ABG pO2 ABG HCO3 ABG O2 Saturation ABG Base Excess ABG Oxyhemoglobin ABG Sodium ABG Chloride ABG Glucose Oxyhemoglobin Carboxyhemoglobin Sodium Potassium Chloride Carbon Dioxide BUN Creatinine Glucose POC Glucose 132 H 169 H 242 H Hemoglobin A1c Magnesium Ferritin AST ALT Alkaline Phosphatase Lactate Dehydrogenase C-Reactive Protein Total Protein Albumin Arterial Blood Glucose Coronavirus (PCR) 07/07/21 07/08/21 07/08/21 21:41 08:09 12:20 WBC MCV MCH MCHC RDW Lymph % (Auto) Carver % (Auto) Eos % (Auto) Lymph # (Auto) Carver # (Auto) Eos # (Auto) Baso # (Auto) Seg Neutrophils % Seg Neuts % (Manual) Lymphocytes % (Manual) Seg Neutrophils # Seg Neutrophils # Man Lymphocytes # (Manual) D-Dimer ABG pH POC ABG pCO2 POC ABG pO2 ABG pO2 ABG HCO3 ABG O2 Saturation ABG Base Excess ABG Oxyhemoglobin ABG Sodium ABG Chloride ABG Glucose Oxyhemoglobin Carboxyhemoglobin Sodium Potassium Chloride Carbon Dioxide BUN Creatinine Glucose POC Glucose 128 H 132 H 179 H Hemoglobin A1c Magnesium Ferritin AST ALT Alkaline Phosphatase Lactate Dehydrogenase C-Reactive Protein Total Protein Albumin Arterial Blood Glucose Coronavirus (PCR) 07/08/21 07/08/21 07/08/21 16:37 21:45 22:44 WBC MCV MCH MCHC RDW Lymph % (Auto) [place]ver % (Auto) Eos % (Auto) Lymph # (Auto) [place]ver # (Auto) Eos # (Auto) Baso # (Auto) Seg Neutrophils % Seg Neuts % (Manual) Lymphocytes % (Manual) Seg Neutrophils # Seg Neutrophils # Man Lymphocytes # (Manual) D-Dimer ABG pH POC ABG pCO2 POC ABG pO2 ABG pO2 ABG HCO3 ABG O2 Saturation ABG Base Excess ABG Oxyhemoglobin ABG Sodium ABG Chloride ABG Glucose Oxyhemoglobin Carboxyhemoglobin Sodium Potassium Chloride Carbon Dioxide BUN Creatinine Glucose POC Glucose 192 H 51 L 137 H Hemoglobin A1c Magnesium Ferritin AST ALT Alkaline Phosphatase Lactate Dehydrogenase C-Reactive Protein Total Protein Albumin Arterial Blood Glucose Coronavirus (PCR) 07/09/21 07/09/21 07/09/21 04:45 04:45 04:45 WBC MCV MCH MCHC RDW 18.3 H Lymph % (Auto) [place]ver % (Auto) Eos % (Auto) Lymph # (Auto) [place]ver # (Auto) Eos # (Auto) Baso # (Auto) Seg Neutrophils % Seg Neuts % (Manual) 82.0 H Lymphocytes % (Manual) 13.0 L Seg Neutrophils # Seg Neutrophils # Man 7.8 H Lymphocytes # (Manual) D-Dimer 638.35 H ABG pH POC ABG pCO2 POC ABG pO2 ABG pO2 ABG HCO3 ABG O2 Saturation ABG Base Excess ABG Oxyhemoglobin ABG Sodium ABG Chloride ABG Glucose Oxyhemoglobin Carboxyhemoglobin Sodium Potassium Chloride 96.9 L Carbon Dioxide 35 H BUN Creatinine 0.2 L Glucose 135 H POC Glucose Hemoglobin A1c Magnesium Ferritin AST ALT Alkaline Phosphatase Lactate Dehydrogenase C-Reactive Protein 4.30 H Total Protein Albumin Arterial Blood Glucose Coronavirus (PCR) 07/09/21 07/09/21 07/09/21 05:19 07:36 11:16 WBC MCV MCH MCHC RDW Lymph % (Auto) [place] % (Auto) Eos % (Auto) Lymph # (Auto) [place]ver # (Auto) Eos # (Auto) Baso # (Auto) Seg Neutrophils % Seg Neuts % (Manual) Lymphocytes % (Manual) Seg Neutrophils # Seg Neutrophils # Man Lymphocytes # (Manual) D-Dimer ABG pH POC ABG pCO2 POC ABG pO2 ABG pO2 ABG HCO3 ABG O2 Saturation ABG Base Excess ABG Oxyhemoglobin ABG Sodium ABG Chloride ABG Glucose Oxyhemoglobin Carboxyhemoglobin Sodium Potassium Chloride Carbon Dioxide BUN Creatinine Glucose POC Glucose 135 H 148 H 212 H Hemoglobin A1c Magnesium Ferritin AST ALT Alkaline Phosphatase Lactate Dehydrogenase C-Reactive Protein Total Protein Albumin Arterial Blood Glucose Coronavirus (PCR) 07/09/21 07/09/21 07/10/21 15:21 21:12 05:40 WBC MCV MCH MCHC RDW Lymph % (Auto) [place] % (Auto) Eos % (Auto) Lymph # (Auto) [place]ver # (Auto) Eos # (Auto) Baso # (Auto) Seg Neutrophils % Seg Neuts % (Manual) Lymphocytes % (Manual) Seg Neutrophils # Seg Neutrophils # Man Lymphocytes # (Manual) D-Dimer ABG pH POC ABG pCO2 POC ABG pO2 ABG pO2 ABG HCO3 ABG O2 Saturation ABG Base Excess ABG Oxyhemoglobin ABG Sodium ABG Chloride ABG Glucose Oxyhemoglobin Carboxyhemoglobin Sodium Potassium 3.3 L Chloride 95.1 L Carbon Dioxide 39 H BUN Creatinine 0.2 L Glucose 122 H POC Glucose 128 H 196 H Hemoglobin A1c Magnesium Ferritin AST ALT Alkaline Phosphatase Lactate Dehydrogenase C-Reactive Protein Total Protein Albumin Arterial Blood Glucose Coronavirus (PCR) 07/10/21 07/10/21 07/10/21 07:38 11:15 16:29 WBC MCV MCH MCHC RDW Lymph % (Auto) [place]ver % (Auto) Eos % (Auto) Lymph # (Auto) [place]ver # (Auto) Eos # (Auto) Baso # (Auto) Seg Neutrophils % Seg Neuts % (Manual) Lymphocytes % (Manual) Seg Neutrophils # Seg Neutrophils # Man Lymphocytes # (Manual) D-Dimer ABG pH POC ABG pCO2 POC ABG pO2 ABG pO2 ABG HCO3 ABG O2 Saturation ABG Base Excess ABG Oxyhemoglobin ABG Sodium ABG Chloride ABG Glucose Oxyhemoglobin Carboxyhemoglobin Sodium Potassium Chloride Carbon Dioxide BUN Creatinine Glucose POC Glucose 128 H 175 H 174 H Hemoglobin A1c Magnesium Ferritin AST ALT Alkaline Phosphatase Lactate Dehydrogenase C-Reactive Protein Total Protein Albumin Arterial Blood Glucose Coronavirus (PCR) 07/10/21 07/11/21 07/11/21 20:49 05:50 12:08 WBC MCV MCH MCHC RDW Lymph % (Auto) [place]ver % (Auto) Eos % (Auto) Lymph # (Auto) [place]ver # (Auto) Eos # (Auto) Baso # (Auto) Seg Neutrophils % Seg Neuts % (Manual) Lymphocytes % (Manual) Seg Neutrophils # Seg Neutrophils # Man Lymphocytes # (Manual) D-Dimer ABG pH POC ABG pCO2 POC ABG pO2 ABG pO2 ABG HCO3 ABG O2 Saturation ABG Base Excess ABG Oxyhemoglobin ABG Sodium ABG Chloride ABG Glucose Oxyhemoglobin Carboxyhemoglobin Sodium Potassium Chloride 97.3 L Carbon Dioxide 34 H BUN Creatinine 0.2 L Glucose 109 H POC Glucose 142 H 220 H Hemoglobin A1c Magnesium Ferritin AST ALT Alkaline Phosphatase Lactate Dehydrogenase C-Reactive Protein Total Protein Albumin Arterial Blood Glucose Coronavirus (PCR) 07/11/21 07/11/21 07/12/21 17:09 21:55 07:36 WBC MCV MCH MCHC RDW Lymph % (Auto) [place] % (Auto) Eos % (Auto) Lymph # (Auto) [place]ver # (Auto) Eos # (Auto) Baso # (Auto) Seg Neutrophils % Seg Neuts % (Manual) Lymphocytes % (Manual) Seg Neutrophils # Seg Neutrophils # Man Lymphocytes # (Manual) D-Dimer ABG pH POC ABG pCO2 POC ABG pO2 ABG pO2 ABG HCO3 ABG O2 Saturation ABG Base Excess ABG Oxyhemoglobin ABG Sodium ABG Chloride ABG Glucose Oxyhemoglobin Carboxyhemoglobin Sodium Potassium Chloride Carbon Dioxide BUN Creatinine Glucose POC Glucose 219 H 124 H 114 H Hemoglobin A1c Magnesium Ferritin AST ALT Alkaline Phosphatase Lactate Dehydrogenase C-Reactive Protein Total Protein Albumin Arterial Blood Glucose Coronavirus (PCR) 07/12/21 07/12/21 07/12/21 11:08 15:43 22:20 WBC MCV MCH MCHC RDW Lymph % (Auto) [place]ver % (Auto) Eos % (Auto) Lymph # (Auto) [place]ver # (Auto) Eos # (Auto) Baso # (Auto) Seg Neutrophils % Seg Neuts % (Manual) Lymphocytes % (Manual) Seg Neutrophils # Seg Neutrophils # Man Lymphocytes # (Manual) D-Dimer ABG pH POC ABG pCO2 POC ABG pO2 ABG pO2 ABG HCO3 ABG O2 Saturation ABG Base Excess ABG Oxyhemoglobin ABG Sodium ABG Chloride ABG Glucose Oxyhemoglobin Carboxyhemoglobin Sodium Potassium Chloride Carbon Dioxide BUN Creatinine Glucose POC Glucose 195 H 276 H 189 H Hemoglobin A1c Magnesium Ferritin AST ALT Alkaline Phosphatase Lactate Dehydrogenase C-Reactive Protein Total Protein Albumin Arterial Blood Glucose Coronavirus (PCR) 07/13/21 07/13/21 07/13/21 08:01 08:08 10:17 WBC MCV MCH MCHC RDW Lymph % (Auto) [place]ver % (Auto) Eos % (Auto) Lymph # (Auto) [place]ver # (Auto) Eos # (Auto) Baso # (Auto) Seg Neutrophils % Seg Neuts % (Manual) Lymphocytes % (Manual) Seg Neutrophils # Seg Neutrophils # Man Lymphocytes # (Manual) D-Dimer ABG pH POC ABG pCO2 POC ABG pO2 ABG pO2 ABG HCO3 ABG O2 Saturation ABG Base Excess ABG Oxyhemoglobin ABG Sodium ABG Chloride ABG Glucose Oxyhemoglobin Carboxyhemoglobin Sodium Potassium Chloride 94.4 L Carbon Dioxide 34 H BUN Creatinine 0.3 L Glucose 149 H POC Glucose 132 H 265 H Hemoglobin A1c Magnesium Ferritin AST ALT Alkaline Phosphatase Lactate Dehydrogenase C-Reactive Protein Total Protein Albumin Arterial Blood Glucose Coronavirus (PCR) 07/13/21 07/13/21 07/14/21 17:58 21:41 07:34 WBC MCV MCH MCHC RDW Lymph % (Auto) [place] % (Auto) Eos % (Auto) Lymph # (Auto) [place]ver # (Auto) Eos # (Auto) Baso # (Auto) Seg Neutrophils % Seg Neuts % (Manual) Lymphocytes % (Manual) Seg Neutrophils # Seg Neutrophils # Man Lymphocytes # (Manual) D-Dimer ABG pH POC ABG pCO2 POC ABG pO2 ABG pO2 ABG HCO3 ABG O2 Saturation ABG Base Excess ABG Oxyhemoglobin ABG Sodium ABG Chloride ABG Glucose Oxyhemoglobin Carboxyhemoglobin Sodium Potassium Chloride Carbon Dioxide BUN Creatinine Glucose POC Glucose 217 H 223 H 116 H Hemoglobin A1c Magnesium Ferritin AST ALT Alkaline Phosphatase Lactate Dehydrogenase C-Reactive Protein Total Protein Albumin Arterial Blood Glucose Coronavirus (PCR) 07/14/21 07/14/21 07/14/21 10:50 17:33 20:51 WBC MCV MCH MCHC RDW Lymph % (Auto) [place]ver % (Auto) Eos % (Auto) Lymph # (Auto) Carver # (Auto) Eos # (Auto) Baso # (Auto) Seg Neutrophils % Seg Neuts % (Manual) Lymphocytes % (Manual) Seg Neutrophils # Seg Neutrophils # Man Lymphocytes # (Manual) D-Dimer ABG pH POC ABG pCO2 POC ABG pO2 ABG pO2 ABG HCO3 ABG O2 Saturation ABG Base Excess ABG Oxyhemoglobin ABG Sodium ABG Chloride ABG Glucose Oxyhemoglobin Carboxyhemoglobin Sodium Potassium Chloride Carbon Dioxide BUN Creatinine Glucose POC Glucose 191 H 173 H 132 H Hemoglobin A1c Magnesium Ferritin AST ALT Alkaline Phosphatase Lactate Dehydrogenase C-Reactive Protein Total Protein Albumin Arterial Blood Glucose Coronavirus (PCR) 07/15/21 07/15/21 07/15/21 04:00 07:59 12:31 WBC MCV MCH MCHC RDW Lymph % (Auto) Carver % (Auto) Eos % (Auto) Lymph # (Auto) Carver # (Auto) Eos # (Auto) Baso # (Auto) Seg Neutrophils % Seg Neuts % (Manual) Lymphocytes % (Manual) Seg Neutrophils # Seg Neutrophils # Man Lymphocytes # (Manual) D-Dimer ABG pH POC ABG pCO2 POC ABG pO2 ABG pO2 ABG HCO3 ABG O2 Saturation ABG Base Excess ABG Oxyhemoglobin ABG Sodium ABG Chloride ABG Glucose Oxyhemoglobin Carboxyhemoglobin Sodium Potassium Chloride 96.0 L Carbon Dioxide 32 H BUN Creatinine 0.3 L Glucose 208 H POC Glucose 117 H 195 H Hemoglobin A1c Magnesium Ferritin AST ALT Alkaline Phosphatase Lactate Dehydrogenase C-Reactive Protein Total Protein Albumin Arterial Blood Glucose Coronavirus (PCR) 07/15/21 07/15/21 07/16/21 18:00 20:57 04:40 WBC MCV MCH MCHC RDW 17.1 H Lymph % (Auto) [place]ver % (Auto) Eos % (Auto) Lymph # (Auto) Carver # (Auto) Eos # (Auto) Baso # (Auto) Seg Neutrophils % Seg Neuts % (Manual) Lymphocytes % (Manual) Seg Neutrophils # Seg Neutrophils # Man Lymphocytes # (Manual) D-Dimer ABG pH POC ABG pCO2 POC ABG pO2 ABG pO2 ABG HCO3 ABG O2 Saturation ABG Base Excess ABG Oxyhemoglobin ABG Sodium ABG Chloride ABG Glucose Oxyhemoglobin Carboxyhemoglobin Sodium Potassium Chloride Carbon Dioxide BUN Creatinine Glucose POC Glucose 217 H 111 H Hemoglobin A1c Magnesium Ferritin AST ALT Alkaline Phosphatase Lactate Dehydrogenase C-Reactive Protein Total Protein Albumin Arterial Blood Glucose Coronavirus (PCR) 07/16/21 07/16/21 07/16/21 04:40 07:08 11:11 WBC MCV MCH MCHC RDW Lymph % (Auto) Carver % (Auto) Eos % (Auto) Lymph # (Auto) Carver # (Auto) Eos # (Auto) Baso # (Auto) Seg Neutrophils % Seg Neuts % (Manual) Lymphocytes % (Manual) Seg Neutrophils # Seg Neutrophils # Man Lymphocytes # (Manual) D-Dimer ABG pH POC ABG pCO2 POC ABG pO2 ABG pO2 ABG HCO3 ABG O2 Saturation ABG Base Excess ABG Oxyhemoglobin ABG Sodium ABG Chloride ABG Glucose Oxyhemoglobin Carboxyhemoglobin Sodium Potassium 3.4 L Chloride 94.6 L Carbon Dioxide 36 H BUN Creatinine < 0.2 L Glucose 101 H POC Glucose 118 H 184 H Hemoglobin A1c Magnesium Ferritin AST ALT Alkaline Phosphatase Lactate Dehydrogenase C-Reactive Protein Total Protein Albumin Arterial Blood Glucose Coronavirus (PCR) 07/16/21 07/16/21 07/17/21 17:29 22:01 08:10 WBC MCV MCH MCHC RDW Lymph % (Auto) [place]ver % (Auto) Eos % (Auto) Lymph # (Auto) [place]ver # (Auto) Eos # (Auto) Baso # (Auto) Seg Neutrophils % Seg Neuts % (Manual) Lymphocytes % (Manual) Seg Neutrophils # Seg Neutrophils # Man Lymphocytes # (Manual) D-Dimer ABG pH POC ABG pCO2 POC ABG pO2 ABG pO2 ABG HCO3 ABG O2 Saturation ABG Base Excess ABG Oxyhemoglobin ABG Sodium ABG Chloride ABG Glucose Oxyhemoglobin Carboxyhemoglobin Sodium Potassium Chloride Carbon Dioxide BUN Creatinine Glucose POC Glucose 200 H 147 H 118 H Hemoglobin A1c Magnesium Ferritin AST ALT Alkaline Phosphatase Lactate Dehydrogenase C-Reactive Protein Total Protein Albumin Arterial Blood Glucose Coronavirus (PCR) 07/17/21 07/17/21 07/17/21 11:38 16:24 21:13 WBC MCV MCH MCHC RDW Lymph % (Auto) Carver % (Auto) Eos % (Auto) Lymph # (Auto) Carver # (Auto) Eos # (Auto) Baso # (Auto) Seg Neutrophils % Seg Neuts % (Manual) Lymphocytes % (Manual) Seg Neutrophils # Seg Neutrophils # Man Lymphocytes # (Manual) D-Dimer ABG pH POC ABG pCO2 POC ABG pO2 ABG pO2 ABG HCO3 ABG O2 Saturation ABG Base Excess ABG Oxyhemoglobin ABG Sodium ABG Chloride ABG Glucose Oxyhemoglobin Carboxyhemoglobin Sodium Potassium Chloride Carbon Dioxide BUN Creatinine Glucose POC Glucose 151 H 268 H 115 H Hemoglobin A1c Magnesium Ferritin AST ALT Alkaline Phosphatase Lactate Dehydrogenase C-Reactive Protein Total Protein Albumin Arterial Blood Glucose Coronavirus (PCR) 07/18/21 07/18/21 07/18/21 07:58 12:29 20:24 WBC MCV MCH MCHC RDW Lymph % (Auto) Carver % (Auto) Eos % (Auto) Lymph # (Auto) Carver # (Auto) Eos # (Auto) Baso # (Auto) Seg Neutrophils % Seg Neuts % (Manual) Lymphocytes % (Manual) Seg Neutrophils # Seg Neutrophils # Man Lymphocytes # (Manual) D-Dimer ABG pH POC ABG pCO2 POC ABG pO2 ABG pO2 ABG HCO3 ABG O2 Saturation ABG Base Excess ABG Oxyhemoglobin ABG Sodium ABG Chloride ABG Glucose Oxyhemoglobin Carboxyhemoglobin Sodium Potassium Chloride Carbon Dioxide BUN Creatinine Glucose POC Glucose 135 H 139 H 130 H Hemoglobin A1c Magnesium Ferritin AST ALT Alkaline Phosphatase Lactate Dehydrogenase C-Reactive Protein Total Protein Albumin Arterial Blood Glucose Coronavirus (PCR) 07/19/21 07/19/21 07/19/21 06:55 06:55 07:54 WBC 14.5 H MCV MCH MCHC RDW 17.3 H Lymph % (Auto) 9.6 L Carver % (Auto) Eos % (Auto) Lymph # (Auto) Carver # (Auto) Eos # (Auto) 0.6 H Baso # (Auto) Seg Neutrophils % 80.3 H Seg Neuts % (Manual) Lymphocytes % (Manual) Seg Neutrophils # 11.7 H Seg Neutrophils # Man Lymphocytes # (Manual) D-Dimer ABG pH POC ABG pCO2 67.9 H POC ABG pO2 131.0 H ABG pO2 ABG HCO3 ABG O2 Saturation ABG Base Excess ABG Oxyhemoglobin ABG Sodium ABG Chloride 97.0 L ABG Glucose 133 H Oxyhemoglobin Carboxyhemoglobin Sodium Potassium Chloride 95.3 L Carbon Dioxide 35 H BUN Creatinine < 0.2 L Glucose 138 H POC Glucose Hemoglobin A1c Magnesium Ferritin AST ALT Alkaline Phosphatase Lactate Dehydrogenase C-Reactive Protein Total Protein Albumin Arterial Blood Glucose 133 H Coronavirus (PCR) 07/19/21 07/19/21 07/19/21 08:10 11:43 17:04 WBC MCV MCH MCHC RDW Lymph % (Auto) Carver % (Auto) Eos % (Auto) Lymph # (Auto) Carver # (Auto) Eos # (Auto) Baso # (Auto) Seg Neutrophils % Seg Neuts % (Manual) Lymphocytes % (Manual) Seg Neutrophils # Seg Neutrophils # Man Lymphocytes # (Manual) D-Dimer ABG pH POC ABG pCO2 POC ABG pO2 ABG pO2 ABG HCO3 ABG O2 Saturation ABG Base Excess ABG Oxyhemoglobin ABG Sodium ABG Chloride ABG Glucose Oxyhemoglobin Carboxyhemoglobin Sodium Potassium Chloride Carbon Dioxide BUN Creatinine Glucose POC Glucose 129 H 126 H 108 H Hemoglobin A1c Magnesium Ferritin AST ALT Alkaline Phosphatase Lactate Dehydrogenase C-Reactive Protein Total Protein Albumin Arterial Blood Glucose Coronavirus (PCR) 07/19/21 07/20/21 07/20/21 21:10 04:00 04:00 WBC MCV MCH MCHC RDW 17.0 H Lymph % (Auto) Carver % (Auto) 8.9 H Eos % (Auto) 6.3 H Lymph # (Auto) Carver # (Auto) 0.9 H Eos # (Auto) 0.6 H Baso # (Auto) Seg Neutrophils % 70.2 H Seg Neuts % (Manual) Lymphocytes % (Manual) Seg Neutrophils # Seg Neutrophils # Man Lymphocytes # (Manual) D-Dimer ABG pH POC ABG pCO2 POC ABG pO2 ABG pO2 ABG HCO3 ABG O2 Saturation ABG Base Excess ABG Oxyhemoglobin ABG Sodium ABG Chloride ABG Glucose Oxyhemoglobin Carboxyhemoglobin Sodium Potassium Chloride 96.7 L Carbon Dioxide 36 H BUN Creatinine 0.2 L Glucose 102 H POC Glucose 109 H Hemoglobin A1c Magnesium Ferritin AST ALT Alkaline Phosphatase Lactate Dehydrogenase C-Reactive Protein Total Protein Albumin 3.2 L Arterial Blood Glucose Coronavirus (PCR) 07/20/21 07/20/21 07/20/21 11:15 15:34 17:01 WBC MCV MCH MCHC RDW Lymph % (Auto) Carver % (Auto) Eos % (Auto) Lymph # (Auto) Carver # (Auto) Eos # (Auto) Baso # (Auto) Seg Neutrophils % Seg Neuts % (Manual) Lymphocytes % (Manual) Seg Neutrophils # Seg Neutrophils # Man Lymphocytes # (Manual) D-Dimer ABG pH POC ABG pCO2 POC ABG pO2 ABG pO2 ABG HCO3 ABG O2 Saturation ABG Base Excess ABG Oxyhemoglobin ABG Sodium ABG Chloride ABG Glucose Oxyhemoglobin Carboxyhemoglobin Sodium Potassium Chloride Carbon Dioxide BUN Creatinine Glucose POC Glucose 109 H 152 H 125 H Hemoglobin A1c Magnesium Ferritin AST ALT Alkaline Phosphatase Lactate Dehydrogenase C-Reactive Protein Total Protein Albumin Arterial Blood Glucose Coronavirus (PCR) 07/20/21 07/21/21 07/21/21 21:00 04:48 04:48 WBC 12.8 H MCV MCH MCHC RDW 16.8 H Lymph % (Auto) 9.3 L Carver % (Auto) Eos % (Auto) Lymph # (Auto) Carver # (Auto) 0.9 H Eos # (Auto) Baso # (Auto) Seg Neutrophils % 81.1 H Seg Neuts % (Manual) Lymphocytes % (Manual) Seg Neutrophils # 10.4 H Seg Neutrophils # Man Lymphocytes # (Manual) D-Dimer ABG pH POC ABG pCO2 POC ABG pO2 ABG pO2 ABG HCO3 ABG O2 Saturation ABG Base Excess ABG Oxyhemoglobin ABG Sodium ABG Chloride ABG Glucose Oxyhemoglobin Carboxyhemoglobin Sodium Potassium Chloride 95.4 L Carbon Dioxide 33 H BUN 6 L Creatinine < 0.2 L Glucose 155 H POC Glucose 211 H Hemoglobin A1c Magnesium 1.60 L Ferritin AST ALT Alkaline Phosphatase Lactate Dehydrogenase C-Reactive Protein Total Protein Albumin Arterial Blood Glucose Coronavirus (PCR) 07/21/21 07/21/21 07/21/21 07:52 11:05 17:01 WBC MCV MCH MCHC RDW Lymph % (Auto) Carver % (Auto) Eos % (Auto) Lymph # (Auto) Carver # (Auto) Eos # (Auto) Baso # (Auto) Seg Neutrophils % Seg Neuts % (Manual) Lymphocytes % (Manual) Seg Neutrophils # Seg Neutrophils # Man Lymphocytes # (Manual) D-Dimer ABG pH POC ABG pCO2 POC ABG pO2 ABG pO2 ABG HCO3 ABG O2 Saturation ABG Base Excess ABG Oxyhemoglobin ABG Sodium ABG Chloride ABG Glucose Oxyhemoglobin Carboxyhemoglobin Sodium Potassium Chloride Carbon Dioxide BUN Creatinine Glucose POC Glucose 116 H 207 H 133 H Hemoglobin A1c Magnesium Ferritin AST ALT Alkaline Phosphatase Lactate Dehydrogenase C-Reactive Protein Total Protein Albumin Arterial Blood Glucose Coronavirus (PCR) 07/21/21 07/22/21 07/22/21 21:17 07:55 07:55 WBC MCV MCH MCHC RDW 16.5 H Lymph % (Auto) Carver % (Auto) 8.6 H Eos % (Auto) Lymph # (Auto) Carver # (Auto) Eos # (Auto) Baso # (Auto) Seg Neutrophils % 72.3 H Seg Neuts % (Manual) Lymphocytes % (Manual) Seg Neutrophils # Seg Neutrophils # Man Lymphocytes # (Manual) D-Dimer ABG pH POC ABG pCO2 POC ABG pO2 ABG pO2 ABG HCO3 ABG O2 Saturation ABG Base Excess ABG Oxyhemoglobin ABG Sodium ABG Chloride ABG Glucose Oxyhemoglobin Carboxyhemoglobin Sodium Potassium Chloride 94.6 L Carbon Dioxide 42 H* D BUN 5 L Creatinine < 0.2 L Glucose POC Glucose 152 H Hemoglobin A1c Magnesium Ferritin AST ALT Alkaline Phosphatase Lactate Dehydrogenase C-Reactive Protein Total Protein Albumin Arterial Blood Glucose Coronavirus (PCR) 07/22/21 07/22/21 07/22/21 11:25 12:05 15:40 WBC MCV MCH MCHC RDW Lymph % (Auto) Carver % (Auto) Eos % (Auto) Lymph # (Auto) Carver # (Auto) Eos # (Auto) Baso # (Auto) Seg Neutrophils % Seg Neuts % (Manual) Lymphocytes % (Manual) Seg Neutrophils # Seg Neutrophils # Man Lymphocytes # (Manual) D-Dimer ABG pH 7.338 L POC ABG pCO2 POC ABG pO2 ABG pO2 66.1 L ABG HCO3 45.0 H ABG O2 Saturation 94.2 L ABG Base Excess 15.2 H ABG Oxyhemoglobin ABG Sodium ABG Chloride ABG Glucose Oxyhemoglobin 91.9 L Carboxyhemoglobin Sodium Potassium Chloride Carbon Dioxide BUN Creatinine Glucose POC Glucose 146 H 219 H Hemoglobin A1c Magnesium Ferritin AST ALT Alkaline Phosphatase Lactate Dehydrogenase C-Reactive Protein Total Protein Albumin Arterial Blood Glucose Coronavirus (PCR) 07/22/21 07/23/21 07/23/21 21:26 04:35 04:35 WBC MCV 98 H MCH MCHC RDW 16.2 H Lymph % (Auto) 7.9 L Carver % (Auto) Eos % (Auto) Lymph # (Auto) 0.9 L Carver # (Auto) Eos # (Auto) Baso # (Auto) Seg Neutrophils % 85.3 H Seg Neuts % (Manual) Lymphocytes % (Manual) Seg Neutrophils # 9.2 H Seg Neutrophils # Man Lymphocytes # (Manual) D-Dimer ABG pH POC ABG pCO2 POC ABG pO2 ABG pO2 ABG HCO3 ABG O2 Saturation ABG Base Excess ABG Oxyhemoglobin ABG Sodium ABG Chloride ABG Glucose Oxyhemoglobin Carboxyhemoglobin Sodium Potassium Chloride 93.9 L Carbon Dioxide 44 H* BUN Creatinine < 0.2 L Glucose 149 H POC Glucose 131 H Hemoglobin A1c Magnesium Ferritin AST ALT Alkaline Phosphatase Lactate Dehydrogenase C-Reactive Protein Total Protein Albumin Arterial Blood Glucose Coronavirus (PCR) 07/23/21 07/23/21 07/23/21 07:20 11:34 16:11 WBC MCV MCH MCHC RDW Lymph % (Auto) Carver % (Auto) Eos % (Auto) Lymph # (Auto) [place] # (Auto) Eos # (Auto) Baso # (Auto) Seg Neutrophils % Seg Neuts % (Manual) Lymphocytes % (Manual) Seg Neutrophils # Seg Neutrophils # Man Lymphocytes # (Manual) D-Dimer ABG pH POC ABG pCO2 POC ABG pO2 ABG pO2 ABG HCO3 ABG O2 Saturation ABG Base Excess ABG Oxyhemoglobin ABG Sodium ABG Chloride ABG Glucose Oxyhemoglobin Carboxyhemoglobin Sodium Potassium Chloride Carbon Dioxide BUN Creatinine Glucose POC Glucose 116 H 172 H 110 H Hemoglobin A1c Magnesium Ferritin AST ALT Alkaline Phosphatase Lactate Dehydrogenase C-Reactive Protein Total Protein Albumin Arterial Blood Glucose Coronavirus (PCR) 07/23/21 07/23/21 07/24/21 18:11 21:33 04:10 WBC MCV MCH MCHC RDW Lymph % (Auto) [place] % (Auto) Eos % (Auto) Lymph # (Auto) [place] # (Auto) Eos # (Auto) Baso # (Auto) Seg Neutrophils % Seg Neuts % (Manual) Lymphocytes % (Manual) Seg Neutrophils # Seg Neutrophils # Man Lymphocytes # (Manual) D-Dimer ABG pH POC ABG pCO2 78.3 H POC ABG pO2 80.7 L ABG pO2 ABG HCO3 ABG O2 Saturation ABG Base Excess ABG Oxyhemoglobin ABG Sodium 134.9 L ABG Chloride 89.0 L ABG Glucose 200 H Oxyhemoglobin Carboxyhemoglobin Sodium Potassium 3.5 L D Chloride 92.4 L Carbon Dioxide 42 H* BUN Creatinine < 0.2 L Glucose 123 H POC Glucose 108 H Hemoglobin A1c Magnesium Ferritin AST ALT Alkaline Phosphatase Lactate Dehydrogenase C-Reactive Protein Total Protein Albumin Arterial Blood Glucose 200 H Coronavirus (PCR) 07/24/21 07/24/21 07/24/21 11:01 16:56 22:06 WBC MCV MCH MCHC RDW Lymph % (Auto) [place] % (Auto) Eos % (Auto) Lymph # (Auto) [place] # (Auto) Eos # (Auto) Baso # (Auto) Seg Neutrophils % Seg Neuts % (Manual) Lymphocytes % (Manual) Seg Neutrophils # Seg Neutrophils # Man Lymphocytes # (Manual) D-Dimer ABG pH POC ABG pCO2 POC ABG pO2 ABG pO2 ABG HCO3 ABG O2 Saturation ABG Base Excess ABG Oxyhemoglobin ABG Sodium ABG Chloride ABG Glucose Oxyhemoglobin Carboxyhemoglobin Sodium Potassium Chloride Carbon Dioxide BUN Creatinine Glucose POC Glucose 171 H 111 H 136 H Hemoglobin A1c Magnesium Ferritin AST ALT Alkaline Phosphatase Lactate Dehydrogenase C-Reactive Protein Total Protein Albumin Arterial Blood Glucose Coronavirus (PCR) 07/25/21 07/25/21 07/25/21 07:40 10:59 11:58 WBC MCV MCH MCHC RDW Lymph % (Auto) [place] % (Auto) Eos % (Auto) Lymph # (Auto) [place] # (Auto) Eos # (Auto) Baso # (Auto) Seg Neutrophils % Seg Neuts % (Manual) Lymphocytes % (Manual) Seg Neutrophils # Seg Neutrophils # Man Lymphocytes # (Manual) D-Dimer ABG pH POC ABG pCO2 POC ABG pO2 ABG pO2 ABG HCO3 ABG O2 Saturation ABG Base Excess ABG Oxyhemoglobin ABG Sodium ABG Chloride ABG Glucose Oxyhemoglobin Carboxyhemoglobin Sodium Potassium Chloride 88.6 L Carbon Dioxide 43 H* BUN Creatinine 0.2 L Glucose 180 H POC Glucose 120 H 153 H Hemoglobin A1c Magnesium Ferritin AST ALT Alkaline Phosphatase Lactate Dehydrogenase C-Reactive Protein Total Protein Albumin Arterial Blood Glucose Coronavirus (PCR) 07/25/21 07/25/21 07/26/21 16:03 20:18 09:56 WBC MCV MCH MCHC RDW Lymph % (Auto) [place] % (Auto) Eos % (Auto) Lymph # (Auto) [place] # (Auto) Eos # (Auto) Baso # (Auto) Seg Neutrophils % Seg Neuts % (Manual) Lymphocytes % (Manual) Seg Neutrophils # Seg Neutrophils # Man Lymphocytes # (Manual) D-Dimer ABG pH POC ABG pCO2 POC ABG pO2 ABG pO2 ABG HCO3 ABG O2 Saturation ABG Base Excess ABG Oxyhemoglobin ABG Sodium ABG Chloride ABG Glucose Oxyhemoglobin Carboxyhemoglobin Sodium Potassium Chloride 91.3 L Carbon Dioxide 45 H* BUN Creatinine < 0.2 L Glucose 128 H POC Glucose 143 H 133 H Hemoglobin A1c Magnesium Ferritin AST ALT Alkaline Phosphatase Lactate Dehydrogenase C-Reactive Protein Total Protein Albumin 3.2 L Arterial Blood Glucose Coronavirus (PCR) 07/26/21 07/26/21 07/27/21 17:56 21:24 07:10 WBC MCV MCH MCHC RDW Lymph % (Auto) [place] % (Auto) Eos % (Auto) Lymph # (Auto) [place] # (Auto) Eos # (Auto) Baso # (Auto) Seg Neutrophils % Seg Neuts % (Manual) Lymphocytes % (Manual) Seg Neutrophils # Seg Neutrophils # Man Lymphocytes # (Manual) D-Dimer ABG pH POC ABG pCO2 POC ABG pO2 ABG pO2 ABG HCO3 ABG O2 Saturation ABG Base Excess ABG Oxyhemoglobin ABG Sodium ABG Chloride ABG Glucose Oxyhemoglobin Carboxyhemoglobin Sodium Potassium Chloride Carbon Dioxide BUN Creatinine Glucose POC Glucose 170 H 122 H 119 H Hemoglobin A1c Magnesium Ferritin AST ALT Alkaline Phosphatase Lactate Dehydrogenase C-Reactive Protein Total Protein Albumin Arterial Blood Glucose Coronavirus (PCR) 07/27/21 07/27/21 07/28/21 11:44 21:31 07:30 WBC MCV MCH MCHC RDW Lymph % (Auto) [place] % (Auto) Eos % (Auto) Lymph # (Auto) [place] # (Auto) Eos # (Auto) Baso # (Auto) Seg Neutrophils % Seg Neuts % (Manual) Lymphocytes % (Manual) Seg Neutrophils # Seg Neutrophils # Man Lymphocytes # (Manual) D-Dimer ABG pH POC ABG pCO2 POC ABG pO2 ABG pO2 ABG HCO3 ABG O2 Saturation ABG Base Excess ABG Oxyhemoglobin ABG Sodium ABG Chloride ABG Glucose Oxyhemoglobin Carboxyhemoglobin Sodium Potassium 3.4 L D Chloride 91.4 L Carbon Dioxide 39 H BUN Creatinine < 0.2 L Glucose 140 H POC Glucose 176 H 162 H Hemoglobin A1c Magnesium Ferritin AST ALT Alkaline Phosphatase Lactate Dehydrogenase C-Reactive Protein Total Protein Albumin Arterial Blood Glucose Coronavirus (PCR) 07/28/21 07/28/21 07/28/21 08:43 12:25 16:40 WBC MCV MCH MCHC RDW Lymph % (Auto) [place] % (Auto) Eos % (Auto) Lymph # (Auto) [place] # (Auto) Eos # (Auto) Baso # (Auto) Seg Neutrophils % Seg Neuts % (Manual) Lymphocytes % (Manual) Seg Neutrophils # Seg Neutrophils # Man Lymphocytes # (Manual) D-Dimer ABG pH POC ABG pCO2 POC ABG pO2 ABG pO2 ABG HCO3 ABG O2 Saturation ABG Base Excess ABG Oxyhemoglobin ABG Sodium ABG Chloride ABG Glucose Oxyhemoglobin Carboxyhemoglobin Sodium Potassium Chloride Carbon Dioxide BUN Creatinine Glucose POC Glucose 122 H 162 H 234 H Hemoglobin A1c Magnesium Ferritin AST ALT Alkaline Phosphatase Lactate Dehydrogenase C-Reactive Protein Total Protein Albumin Arterial Blood Glucose Coronavirus (PCR) Chest x-ray: report reviewed, image reviewed
[2021-07-28] MEDS: ACETAMINOPHEN 325 MG TAB PO PRN (22:46)
[2021-07-28] MEDS: ENOXAPARIN 40 MG/0.4 ML INJ SUB-Q SCH (22:47)
[2021-07-29 05:39] LABS: Blood Urea Nitrogen 8 mg/dL (7-17); Calcium 9.2 mg/dL (8.4-10.2); Hemolysis Index 2
[2021-07-29 05:41] LABS: BUN/Creatinine Ratio 40
--- NOTE | 2021-07-29 08:57 | Progress Note ---
Assessment and Plan Assessment and plan: #Acute hypoxic/hypercapneic respiratory failure #Severe ARDS -Currently on high flow nasal cannula, currently on 75% FIO2 -trial BiPAP at night -maintain SpO2 >88% -Low threshold for intubation as patient is persistently tachypneic and tachycardic -s/p prednisone taper -Pulmonology following, assistance appreciated -encouraged prone positioning; patient has been poorly tolerating it overnight #Metabolic alkalosis -stable -Patient received multiple doses of Lasix over course of hospital stay but may be 2/2 to compensation for hypercapneia #Hypokalemia -will replete and monitor #Heart failure with preserved ejection fraction -TTE: LVEF 55-60% with diastolic dysfunction -will continue to monitor for signs of fluid overload #COVID-19 infection -Continue Covid vitamins #Type 2 diabetes -continue Lantus 5 units daily and sliding scale insulin #Anxiety -Stable -increased xanax dose at patients request #DVT prophylaxis -Lovenox 40 daily #Deconditioning -Will benefit from SNF after prolonged hospital stay Resolved issues #Sepsis secondary to COVID-19 #Iatrogenic diarrhea #Hypomagnesemia #Hyponatremia #Protein calorie malnutrition #Dysuria #Possible UTI Disposition Plan: Continue medical management Total Time Spent with Patient (Minutes): 20 minutes History Interval history: No acute events overnight. On HFNC 40/75%. Complains of R lower extremity pain and decreased movement of the leg. No complaints at this time. Hospitalist Physical - Physical exam Narrative exam: GENERAL: Well-developed well-nourished. Lying in bed in no acute distress. HEENT: High flow nasal cannula at 40L/75% CHEST/LUNGS: Coarse breath sounds bilaterally. HEART/CARDIOVASCULAR: Tachycardic. No murmur, rubs or gallops appreciated. ABDOMEN: +BS. NT/ND. PSYCH: Cooperative. - Constitutional Vitals: Temp Pulse Resp BP Pulse Ox 98.1 F 100 H 29 H 120/69 92 07/29/21 03:30 07/29/21 08:00 07/29/21 08:00 07/29/21 08:00 07/29/21 08:00 General appearance: Present: no acute distress, well-nourished, obese, other (Looks tired) Results - Labs CBC & Chem 7: 07/23/21 04:35 07/29/21 04:40 Labs: Laboratory Last Values WBC 10.8 K/mm3 (4.5-11.0) 07/23/21 04:35 RBC 3.84 M/mm3 (3.65-5.03) 07/23/21 04:35 Hgb 12.1 gm/dl (10.1-14.3) 07/23/21 04:35 Hct 37.6 % (30.3-42.9) 07/23/21 04:35 MCV 98 fl (79-97) H 07/23/21 04:35 MCH 32 pg (28-32) 07/23/21 04:35 MCHC 32 % (30-34) 07/23/21 04:35 RDW 16.2 % (13.2-15.2) H 07/23/21 04:35 Plt Count 367 K/mm3 (140-440) 07/23/21 04:35 Lymph % (Auto) 7.9 % (13.4-35.0) L 07/23/21 04:35 [place] % (Auto) 5.6 % (0.0-7.3) 07/23/21 04:35 Eos % (Auto) 0.8 % (0.0-4.3) 07/23/21 04:35 Baso % (Auto) 0.4 % (0.0-1.8) 07/23/21 04:35 Lymph # (Auto) 0.9 K/mm3 (1.2-5.4) L 07/23/21 04:35 [place] # (Auto) 0.6 K/mm3 (0.0-0.8) 07/23/21 04:35 Eos # (Auto) 0.1 K/mm3 (0.0-0.4) 07/23/21 04:35 Baso # (Auto) 0.0 K/mm3 (0.0-0.1) 07/23/21 04:35 Add Manual Diff Complete 07/09/21 04:45 Total Counted 100 07/09/21 04:45 Seg Neutrophils % 85.3 % (40.0-70.0) H 07/23/21 04:35 Seg Neuts % (Manual) 82.0 % (40.0-70.0) H 07/09/21 04:45 Band Neutrophils % 1.0 % 05/12/21 04:05 Lymphocytes % (Manual) 13.0 % (13.4-35.0) L 07/09/21 04:45 Monocytes % (Manual) 3.0 % (0.0-7.3) 07/09/21 04:45 Eosinophils % (Manual) 2.0 % (0.0-4.3) 07/09/21 04:45 Nucleated RBC % Not Reportable 07/09/21 04:45 Seg Neutrophils # 9.2 K/mm3 (1.8-7.7) H 07/23/21 04:35 Seg Neutrophils # Man 7.8 K/mm3 (1.8-7.7) H 07/09/21 04:45 Band Neutrophils # 0.0 K/mm3 07/09/21 04:45 Lymphocytes # (Manual) 1.2 K/mm3 (1.2-5.4) 07/09/21 04:45 Abs React Lymphs (Man) 0.0 K/mm3 07/09/21 04:45 Monocytes # (Manual) 0.3 K/mm3 (0.0-0.8) 07/09/21 04:45 Eosinophils # (Manual) 0.2 K/mm3 (0.0-0.4) 07/09/21 04:45 Basophils # (Manual) 0.0 K/mm3 (0.0-0.1) 07/09/21 04:45 Metamyelocytes # 0.0 K/mm3 07/09/21 04:45 Myelocytes # 0.0 K/mm3 07/09/21 04:45 Promyelocytes # 0.0 K/mm3 07/09/21 04:45 Blast Cells # 0.0 K/mm3 07/09/21 04:45 WBC Morphology Not Reportable 07/09/21 04:45 Hypersegmented Neuts Not Reportable 07/09/21 04:45 Hyposegmented Neuts Not Reportable 07/09/21 04:45 Hypogranular Neuts Not Reportable 07/09/21 04:45 Smudge Cells Not Reportable 07/09/21 04:45 Toxic Granulation Not Reportable 07/09/21 04:45 Toxic Vacuolation Not Reportable 07/09/21 04:45 Dohle Bodies Not Reportable 07/09/21 04:45 Pelger-Huet Anomaly Not Reportable 07/09/21 04:45 Janelle Rods Not Reportable 07/09/21 04:45 Platelet Estimate Consistent w auto 07/09/21 04:45 Clumped Platelets Not Reportable 07/09/21 04:45 Plt Clumps, EDTA Not Reportable 07/09/21 04:45 Large Platelets Not Reportable 07/09/21 04:45 Giant Platelets Rare 07/09/21 04:45 Platelet Satelliting Not Reportable 07/09/21 04:45 Plt Morphology Comment Not Reportable 07/09/21 04:45 RBC Morphology Not Reportable 07/09/21 04:45 Dimorphic RBCs Not Reportable 07/09/21 04:45 Polychromasia Not Reportable 07/09/21 04:45 Hypochromasia Few 07/09/21 04:45 Poikilocytosis Not Reportable 07/09/21 04:45 Anisocytosis Not Reportable 07/09/21 04:45 Microcytosis Not Reportable 07/09/21 04:45 Macrocytosis Not Reportable 07/09/21 04:45 Spherocytes Not Reportable 07/09/21 04:45 Pappenheimer Bodies Not Reportable 07/09/21 04:45 Sickle Cells Not Reportable 07/09/21 04:45 Target Cells Not Reportable 07/09/21 04:45 Tear Drop Cells Not Reportable 07/09/21 04:45 Ovalocytes Not Reportable 07/09/21 04:45 Stomatocytes 1+ 07/09/21 04:45 Helmet Cells Not Reportable 07/09/21 04:45 Ahuja-Alberta Bodies Not Reportable 07/09/21 04:[address] Rings Not Reportable 07/09/21 04:45 Stanton Cells Not Reportable 07/09/21 04:45 Bite Cells Not Reportable 07/09/21 04:45 Crenated Cell Not Reportable 07/09/21 04:45 Elliptocytes Not Reportable 07/09/21 04:45 Acanthocytes (Spur) Not Reportable 07/09/21 04:45 Rouleaux Not Reportable 07/09/21 04:45 Hemoglobin C Crystals Not Reportable 07/09/21 04:45 Schistocytes Not Reportable 07/09/21 04:45 Malaria parasites Not Reportable 07/09/21 04:45 Justin Bodies Not Reportable 07/09/21 04:45 Hem Pathologist Commnt No 07/09/21 04:45 D-Dimer 638.35 ng/mlDDU (0-234) H 07/09/21 04:45 ABG pH 7.417 (7.320-7.450) 07/23/21 18:11 POC ABG pCO2 78.3 mmHg (32.0-48.0) H 07/23/21 18:11 ABG pCO2 85.7 mm Hg 07/22/21 12:05 POC ABG pO2 80.7 mmHg (83-108) L 07/23/21 18:11 ABG pO2 66.1 mm Hg (80.0-90.0) L 07/22/21 12:05 POC ABG HCO3 49.3 07/23/21 18:11 ABG HCO3 45.0 mmol/L (20.0-26.0) H 07/22/21 12:05 ABG O2 Saturation 96.7 (0-100) 07/23/21 18:11 ABG O2 Content 16.8 (0.0-44) 07/22/21 12:05 POC ABG Base Excess 20.5 07/23/21 18:11 ABG Base Excess 15.2 mmol/L (-2.0-3.0) H 07/22/21 12:05 ABG Hemoglobin 12.6 (12.0-17.5) 07/23/21 18:11 ABG Oxyhemoglobin 95.7 (94-98) 07/23/21 18:11 ABG Carboxyhemoglobin 1.9 % (0.0-5.0) 07/22/21 12:05 ABG Methemoglobin 0.3 (0.0-1.5) 07/23/21 18:11 ABG Sodium 134.9 mmol/L (136.0-145.0) L 07/23/21 18:11 ABG Potassium 3.9 mmol/L (3.40-4.50) 07/23/21 18:11 ABG Chloride 89.0 mmol/L (98-107) L 07/23/21 18:11 ABG Glucose 200 mg/dL (65-95) H 07/23/21 18:11 Oxyhemoglobin 91.9 % (95.0-99.0) L 07/22/21 12:05 Carboxyhemoglobin 0.7 (0.5-1.5) 07/23/21 18:11 FiO2 100 % 07/22/21 12:05 FiO2 % 100.0 07/23/21 18:11 Sodium 141 mmol/L (137-145) 07/29/21 04:40 Potassium 3.4 mmol/L (3.6-5.0) L 07/29/21 04:40 Chloride 92.3 mmol/L (98-107) L 07/29/21 04:40 Carbon Dioxide 40 mmol/L (22-30) H 07/29/21 04:40 Anion Gap 12 mmol/L 07/29/21 04:40 BUN 8 mg/dL (7-17) 07/29/21 04:40 Creatinine < 0.2 mg/dL (0.6-1.2) L 07/29/21 04:40 Estimated GFR > 60 ml/min 07/29/21 04:40 BUN/Creatinine Ratio 40 % 07/29/21 04:40 Glucose 125 mg/dL (65-100) H 07/29/21 04:40 POC Glucose 155 mg/dL (70-105) H 07/28/21 21:27 Hemoglobin A1c 8.5 % (4-6) H 04/18/21 07:36 Calcium 9.2 mg/dL (8.4-10.2) 07/29/21 04:40 Phosphorus 3.70 mg/dL (2.5-4.5) 07/23/21 04:35 Magnesium 2.10 mg/dL (1.7-2.3) 07/23/21 04:35 Ferritin 155.9 ng/mL (10.0-200.0) 07/09/21 04:45 Total Bilirubin < 0.20 mg/dL (0.1-1.2) 07/26/21 09:56 AST 23 units/L (5-40) 07/26/21 09:56 ALT 25 units/L (7-56) 07/26/21 09:56 Alkaline Phosphatase 69 units/L (35-129) 07/26/21 09:56 Lactate Dehydrogenase 475 units/L (91-180) H 06/05/21 05:26 C-Reactive Protein 4.30 mg/dL (0.00-1.30) H 07/09/21 04:45 NT-Pro-B Natriuret Pep 59.45 pg/mL (0-450) 07/07/21 13:40 Total Protein 8.1 g/dL (6.3-8.2) 07/26/21 09:56 Albumin 3.2 g/dL (3.9-5) L 07/26/21 09:56 Albumin/Globulin Ratio 0.7 % 07/26/21 09:56 Triglycerides < 9 mg/dL (2-149) 05/03/21 04:30 Procalcitonin < 0.05 ng/mL (<0.15) 05/23/21 09:50 Arterial Blood Glucose 200 mg/dL (65-95) H 07/23/21 18:11 Arterial Blood Ionized Calcium 4.6 mg/dL (4.6-5.3) 07/23/21 18:11 Coronavirus (PCR) Negative (Negative) 07/25/21 Unknown Amos/IV: Voiding Method External Female Catheter Active Medications - Current Medications Current Medications: Generic Name Dose Route Start Last Admin Trade Name Freq PRN Reason Stop Dose Admin Acetaminophen 650 mg 07/02/21 17:48 07/28/21 22:46 Acetaminophen 325 Mg Tab PO 650 mg Q4H PRN Administration Pain, Mild (1-3) Albuterol 2.5 mg 04/16/21 13:39 04/21/21 20:39 Albuterol 2.5 Mg/3 Ml Nebu IH 2.5 mg Q4HRT PRN Administration Shortness Of Breath Alprazolam 1 mg 07/26/21 22:00 07/28/21 22:46 Alprazolam 1 Mg Tab PO 1 mg BID TUTU Administration Calcium Carbonate/Glycine 500 mg 07/24/21 10:43 Calcium Carbonate 500 Mg Tab Chew PO BID PRN reflux Cholecalciferol 1,000 unit 04/17/21 10:00 07/28/21 09:44 Cholecalciferol (Vit D3) 1000 Unit (25 Mcg) Tab PO 1,000 unit QDAY TUTU Administration Enoxaparin Sodium 40 mg 05/19/21 22:00 07/28/21 22:47 Enoxaparin 40 Mg/0.4 Ml Inj SUB-Q 40 mg QDAY@2200 [facility] Administration Protocol Ibuprofen 600 mg 07/11/21 11:00 07/26/21 11:10 Ibuprofen 600 Mg Tab PO 600 mg Q6H PRN Administration Ear Pain Insulin Glargine 5 units 07/25/21 10:00 07/28/21 09:44 Insulin Glargine 100 Units/Ml SUB-Q 5 units DAILY TUTU Administration Insulin Human Lispro 0 unit 05/18/21 12:00 07/28/21 22:47 Insulin Lispro 100 Unit/Ml SUB-Q 3 unit ACHS TUTU Administration Protocol Ondansetron HCl 4 mg 04/16/21 14:00 05/30/21 10:07 Ondansetron 4 Mg/2 Ml Inj IV 4 mg Q8H PRN Administration Nausea And Vomiting Polyethylene Glycol 17 gm 07/16/21 20:00 Polyethylene Glycol 3350 17 Gm Powder PO QDAY PRN Constipation Potassium Chloride 40 meq 07/29/21 09:00 Potassium Chloride Er 20 Meq Tab PO 07/29/21 13:01 Q4H TUTU Sodium Chloride 10 ml 04/16/21 13:39 07/27/21 10:47 Sodium Chloride 0.9% 10 Ml Flush Syringe IV 10 ml PRN PRN Administration LINE FLUSH Zinc Sulfate 220 mg 04/16/21 22:00 07/28/21 22:46 Zinc Sulfate 220 Mg Cap PO 220 mg BID TUTU Administration Nutrition/Malnutrition Assess - Dietary Evaluation Nutrition/Malnutrition Findings: Nutrition Notes Start: 04/23/21 07:41 Freq: Status: Active Protocol: Document 07/03/21 16:54 GB (Rec: 07/03/21 17:11 GB [id number]) Nutrition Notes Initial or Follow up Reassessment Current Diagnosis Respiratory Failure Other Pertinent Diagnosis oral thrush, COVID-19 pneu Current Diet consistent carbohydrate Labs/Tests 07/03: creatinine 0.3, K 3.2 Pertinent Medications Vit C, Vit D3, D5 (PRN), Prednisone, NaCl, Zn Sulfate Height 4 ft 11.84 in Weight 60.3 kg [place] Body Weight (kg) 45.09 BMI 26.1 Weight change and time frame 04/16/21: 74.843kg 05/17/21: 68.1kg 06/16/21: 60.3kg change of -14.54kg for -19.43% in 60 days. Per MD note: pt has been diuresed thorughout stay. Weight Status Overweight Subjective/Other Information MD notes 07/03: pt showing improvement, prednisone weaning down, possible weaning of O2. Last BM: 07/02 PO intake recorded at 50-100% Percent of energy/protein needs met: PO intake of meals meet 75% or greater of EEN Burn Absent Trauma Absent GI Symptoms None Food Allergy No Skin Integrity/Comment skin tear rt/lt buttocks Current % PO Good (75-100%) Minimum of two criteria No #3 Nutrition Diagnosis No nutrition diagnosis at this time Etiology respiratory failure As Evidenced by Signs and Symptoms recovering, good po, weight loss r/t diurese therapy #2 Nutrition Diagnosis Malnutrition Comments: Wt loss due to diurese for most of stay. PO intake is recorded at 75- 100% Etiology acute illness As Evidenced by Signs and Symptoms <50% EER in >5 days, >5% wt loss in 1 month Diagnosis Progress(for reassessment Resolved documentation) #1 Nutrition Diagnosis Inadequate oral intake Etiology ARF As Evidenced by Signs and Symptoms pt continues to meet 100%/93% of kcal/protein needs Diagnosis Progress(for reassessment Resolved documentation) Is patient on ventilator? No Is Patient Ambulatory and/or Out of Bed Yes REE-([place]-St. Jeor-ambulatory/OOB) [ 1491.022 [id number]] Kcal/Kg value to use for calculation 25 Approximate Energy Requirements Using 1508 kcal/Kg Calculation Used for Recommendations Kcal/kg Additional Notes Pro needs 1-1.2g/kg @ 60k -72g/day Fluid needs 1ml/kcal or per MD Nutrition Intervention Change Diet Order: continue Nutrition Support: n/a Add Supplement/Snack (indicate name/kcal n/a /protein ) Goal #1 PO intake of meals to be 75% or greater daily for LOS Goal #2 Weight to stabilize +/-3% current weight for LOS Follow-Up By: 08/07/21 Additional Comments f/u: po intake, weight
[2021-07-29] MEDS: INSULIN LISPRO 100 UNIT/ML SUB-Q SCH ×3 (10:09→17:18)
[2021-07-29] MEDS: ALPRAZolam 1 MG TAB PO SCH ×2 (10:09→21:37)
[2021-07-29] MEDS: ZINC SULFATE 220 MG CAP PO SCH ×2 (10:09→21:37)
[2021-07-29] MEDS: CHOLECALCIFEROL (VIT D3) 1000 UNIT (25 mcg) TAB PO SCH (10:09)
[2021-07-29] MEDS: INSULIN GLARGINE 100 UNITS/ML SUB-Q SCH (10:09)
[2021-07-29] MEDS: POTASSIUM CHLORIDE ER 20 MEQ TAB PO SCH ×2 (10:09→17:31)
--- NOTE | 2021-07-29 10:34 | Progress Note ---
Assessment and Plan 50 y/o female with acute respiratory failure secondary to COVID19 pneumonia. 07/29/21: Continue to attempt to wean FiO2. Given fluctuations in oxygen requirements, ok with keeping in IMCU. consider using bipap therapy at night if patient will allow. Prognosis still remains guarded. Patient has been here 104 days. 07/21/21: Wean FiO2 as tolerated. Patient has never proned the entire 96 days she has been here. Will continue bipap at night. Hold on lasix again today. Prognosis remains guarded. Has finished steroids and all other experimental COVID drugs with minimal to no improvement. 07/20/21: Give patient a break off of bipap and attempt high flow nasal cannula today. Will feed. Suggest keeping bipap therapy at night. Monitor fluid balance and BP. May need more lasix. 07/19/21: This was not related to stopping steroids as hemodynamically she is stable. Her sats is very good on 90%, I dropped to 85 and will continue to wean. She speaks no polish and is very anxious. This adds to her work of breathing. COntinue to wean FiO2 as tolerated. Will give periodic breaks on bipap therapy. Guarded prognosis. 07/17/21: will stop steroids today. Hold on lasix given marginal blood pressure. Guarded prognosis. 07/15/21: Lasix today. Positive fluid balance all weekend based on I/O. Prone. Wean for sats >88% 07/12/21: Gave lasix 40mg IV again this am. Per charting yesterday was the first net negative day. Suggest PRN diuresis over the weekend as well. My partner is rounding but will likely see as needed. Continue to wean for sats >88% 07/11/21: Lasix 40mg IV this am. Attempt to prone if able. Attempt to achieve daily net negative state. Wean for sats >88%. Guarded prognosis. Will change prednisone to 5mg daily starting tomorrow. 07/09/21: Echo shows diastolic dysfunction. Will given an additional 40 of IV lasix today. Monitor daily and wean aggressively for sats >88% 07/08/21: Worsening CXR, Gave lasix yesterday and will give again today. Suggest checking echo, ekg. Prognosis is poor now with this change. We have seen COVID cause CAD with NH. 07/05/21: Will monitor over the weekend. Worst case scenario, may need to go back up to Prednisone 20 at least. Prone if able. Unsure why all of sudden oxygen requirement increasing. Will repeat CXR. 07/03/21: Down to 10 of prednisone. Will keep through the weekend and then drop to 5 on Thursday. PT/OT assessment if not done. Suggest maybe weaning flow now given FiO2 down to 50%. Prognosis is still guarded. 07/01/21: Will drop steroids to 10mg daily starting tomorrow. Wean for sats >88%. Prone. PT/OT should be seeing now that oxygen requirement is down more. 06/28/21: Continue to wean as tolerated. Will drop steroids down even further next week. Will see PRN over the weekend. 06/26/21: Will drop steroids down to 20 starting tomorrow. Prone. Continue to wean as tolerated. 06/24/21: Continue Pred, will drop to 20 daily tomorrow. Prone if able. Hopeful they can wean FiO2 more. May need to consider increasing flow for a while. 06/21/21: Continue pred at 40, will decrease likely Thursday/Thursday to 20 daily. Prone if able. Continue to wean as tolerated. Prognosis still remains guarded. 06/20/21: Will drop steroids down to 40 today. Proning. Continue to wean FiO2. 06/18/21: Wean Fio2 for sats >88%. Please encourage proning. Drop steroids down to 40 on . 06/14/21: Continue oral steroid therapy. Will do further weaning next week. Wean for sats >88% and prone as tolerated. Will see as needed over the weekend. 06/13/21: Will change to prednisone 60 daily starting tomorrow. Prone if able and wean for sats >88% 06/11/21: no new recs, will change to oral steroids tomorrow, continue to prone if able and wean for sats >88% 06/10/21: Will change to oral steroids on Thursday to begin prolonged taper 06/06/21: Continue to wean as tolerated, will drop steroids on tomorrow. 06/04/21: Clinically no change. Will drop steroids down the end of this week. 05/31/21: Clinically no change. Not eligible for LTACH. Encourage Proning. Will drop steroids down to 40 q8 05/29/21: No acute changes clinically. Still on HFNC but not really able to wean. Continue to encourage proning. Will drop steroids further on Thursday. 05/27/21: No improvement over the weekend but also no worsening. No other strategies to offer. Please continue to encourage patient to prone. I dropped steroids on yesterday. Will wean more later in the week. 05/24/21: No new recs again for today. Will see as needed over the weekend but follow chart peripherally for changes. 05/22/21: No new recs for today. Prognosis remains guarded. 05/21/21: Wean as tolerated. Prone if able. Guarded prognosis 05/20/21: COntinue current level of care. 05/17/21: Prone if possible. Wean FiO2 for sats >88%. Continue scheduled ativan. Prognosis is very very guarded. Unfunded so not a candidate for LTACH 05/16/21: Prone if willing. Wean FIO2 if patient will allow. Anxiety control. Prognosis still remains very guarded. 05/15/21: Not sure if MAR is accurate but may have only gotten one dose of scheduled anixolytic therapy. Continue proning as tolerated, and wean FiO2 and flow for sats >88%. Prognosi remains very very guarded to poor. 05/14/21: Will discontinue the buspar and make the ativan scheduled but will do q6 as oppose to q4 and attempt to leave parameters for nursing when not to give. If anxiety could be controlled, feel that patient could be weaned further. She has no funding so she is not a candidate for LTACH. Prone if possible. Guarded prognosis. This is her day. 05/13/21: Ordered buspar 10 BID to start with to help with anxiety. Please con tinue to wean FiO2 as tolerated. Will remind nurse that there is PRN ativan available. Continue higher doses of steroids. Prone if able. 05/12/21: Patient may need something longer acting for anxiety. Per chart has not gotten any ativan in days. Would be ok with either buspar or low dose klonopin bid. COntinue higher doses of steroids as patient seems to be responding. Prone if possible. 05/11/21: Continue high doses of steroids and continue to wean for sats >88%. Please encourage proning. 05/10/21: Will continue this dose of steroid at least through the weekend and assess for improvement. will speak with RT about aggressive weaning. Full dose anticoagulation continues. Very very guarded to poor prognosis. 05/09/21: Going to consider increasing steroids to 125q8, maybe as early as tomorrow. continue full dose anticoagulation. 05/08/21: Continue anticoagulation and steroids. Prone if possible. Anxiety control. No objection to CTA if this can happen. Very very guarded prognosis. 05/07/21: Spoke with IMS, not opposed to full dose anticoagulation. If patient goes back on NRB HFNC combo may need to consider restarting PPN again. Encourage proning. Guarded prognosis. 05/06/21: Continue to wean FiO2 and flow for sats >88%. Tolerating diet now so will stop PPN. Continue anxiety control. Continue IV steroids. Would not object to transfer to COVID floor if bed available. Not sure why she was titrated back up to 100% from 85 as all sats documented in the RT's notes were acceptable. Same for under vital signs as well. 05/03/21: Set back last night from yesterday. Continue bipap therapy for now and attempt HFNC maybe later this afternoon. Continue to use PRN ativan but may need to schedule as she likely took off mask from anxiety. Continue IV steroid s. Hold on transfer to COVID Floor. 05/02/21: Continue to wean FiO2 as tolerated for sats >88%. Will continue bipap at night. Patient has no funding so not a candidate for LTACH. Given that she has been stable and not requiring the combo of HFNC and NRB, will consider moving to COVID floor. 05/01/21: Continue to wean FiO2 for sats >88%. A sat of 90 is more than acceptable and oxygen should not be increased for this unless patient desats and remains at a sat lower than 88. Bipap at night to give some form of relief and HFNC during the day. Currently on just this alone which is improvement. Ok with daily diuresis but must monitor renal function and BP closely. She was over diuresed last week and we ended up giving fluid back. Prognosis remains guarded. 04/30/21: Will start CLinimix today for nutritional support, without electrolytes. Check labs in am. Prone if able. Continue precedx for anxiety. Very very guarded prognosis. Attempting our best to not intubate. 04/29/21: Continue precedex. Continue IV solumedrol. Prone if able. Guarded prognosis. 04/28/21: Continue Precedex. Picc team attempting to place line now. Stable on Bipap. Ordered steroids IV solumedrol to start today. Prognosis remains guarded, still at very high risk for intubation. 04/27/21: Hypotension improving/improved. Hold on any further lasix dosing. Continue precedex to help with anxeity. later today please attempt HFNC with NRB if needed. Attempt to feed if possible. Steroids end today, please order solumedrol 40q8 to start tomorrow (04/28/21). guarded prognosis. 04/26/21: Hypotension today, most likely from precedex use and diuresis that I did the last several days. Will bolus again today. Consider midodrine if BP does not respond. 04/25/21: Lasix again today. Keep PRN ativan for now. Hold on precedex for now. Guarded prognosis. Labs ordered for tomorrow. 04/24/21: Lasix today. Will also start patient on low dose PRN ativan. If this does not help will then try precedex. Guarded prognosis. 04/23/21: Prone as tolerated. No lasix today. Continue decadron. Guarded prognosis. High risk for intubation and high mortality with intubation. 04/19/21: Prone as tolerated during the day and sleep prone at night. Continue IV remdesivir and steroids. Did get actemra. Guarded prognosis. 1. Daily net negative state 2. Prone if possible 3. IV remdesivir. 4. Should be a candidate for Actemra 5. IV steroids 6. Guarded Prognosis Subjective Date of service: 07/29/21 Principal diagnosis: Covid-19 Interval history: No acute events. Currently HFNC 40 and 75%. Sitting up in bed watching TV. Objective Vital Signs - 12hr 07/28/21 07/28/21 07/28/21 22:46 23:00 23:18 Temperature Pulse Rate 112 H 104 H Pulse Rate [ From Monitor] Respiratory 31 H 40 H 19 Rate Blood Pressure 108/74 108/74 O2 Sat by Pulse 84 95 Oximetry 07/28/21 07/28/21 07/29/21 23:50 23:58 00:00 Temperature 98.0 F Pulse Rate 104 H 104 H Pulse Rate [ 104 H From Monitor] Respiratory 30 H Rate Blood Pressure 112/60 O2 Sat by Pulse 95 Oximetry 07/29/21 07/29/21 07/29/21 01:00 02:00 03:00 Temperature Pulse Rate 99 H 97 H 100 H Pulse Rate [ From Monitor] Respiratory 28 H 30 H 27 H Rate Blood Pressure 115/65 119/68 118/70 O2 Sat by Pulse 97 96 91 Oximetry 07/29/21 07/29/21 07/29/21 03:30 04:00 04:30 Temperature 98.1 F Pulse Rate 101 H Pulse Rate [ From Monitor] Respiratory 32 H Rate Blood Pressure 118/61 O2 Sat by Pulse 91 92 Oximetry 07/29/21 07/29/21 07/29/21 05:00 06:00 07:00 Temperature Pulse Rate 100 H 102 H 101 H Pulse Rate [ From Monitor] Respiratory 29 H 34 H 29 H Rate Blood Pressure 125/59 122/73 126/67 O2 Sat by Pulse 94 94 94 Oximetry 07/29/21 07/29/21 08:00 09:40 Temperature Pulse Rate 102 H Pulse Rate [ From Monitor] Respiratory 29 H Rate Blood Pressure 120/69 O2 Sat by Pulse 92 94 Oximetry Constitutional: no acute distress, alert, other (on hiflo o2) Eyes: non-icteric ENT: oropharynx moist Neck: supple Effort: normal Ascultation: Bilateral: diminished breath sounds Cardiovascular: regular rate and rhythm Gastrointestinal: normoactive bowel sounds, soft, non-tender, non-distended Integumentary: normal Extremities: no cyanosis, no edema, pink and warm Neurologic: non-focal exam, pupils equal and round Psychiatric: mood appropriate, affect normal CBC and BMP: 07/23/21 04:35 07/29/21 04:40 ABG, PT/INR, D-dimer: ABG ABG pH 7.417 (7.320-7.450) 07/23/21 18:11 POC ABG pCO2 78.3 mmHg (32.0-48.0) H 07/23/21 18:11 ABG pCO2 85.7 mm Hg 07/22/21 12:05 POC ABG pO2 80.7 mmHg (83-108) L 07/23/21 18:11 ABG pO2 66.1 mm Hg (80.0-90.0) L 07/22/21 12:05 POC ABG HCO3 49.3 07/23/21 18:11 ABG O2 Saturation 96.7 (0-100) 07/23/21 18:11 PT/INR, D-dimer D-Dimer 638.35 ng/mlDDU (0-234) H 07/09/21 04:45 Abnormal lab findings: Abnormal Labs 04/16/21 04/16/21 04/16/21 11:42 11:42 11:42 WBC MCV MCH MCHC RDW 16.1 H Lymph % (Auto) 7.8 L [place] % (Auto) Eos % (Auto) Lymph # (Auto) 0.8 L [place] # (Auto) Eos # (Auto) Baso # (Auto) Seg Neutrophils % 87.7 H Seg Neuts % (Manual) Lymphocytes % (Manual) Seg Neutrophils # 8.5 H Seg Neutrophils # Man Lymphocytes # (Manual) D-Dimer 338.70 H ABG pH POC ABG pCO2 POC ABG pO2 ABG pO2 ABG HCO3 ABG O2 Saturation ABG Base Excess ABG Oxyhemoglobin ABG Sodium ABG Chloride ABG Glucose Oxyhemoglobin Carboxyhemoglobin Sodium Potassium Chloride Carbon Dioxide BUN Creatinine Glucose 194 H POC Glucose Hemoglobin A1c Magnesium Ferritin AST ALT Alkaline Phosphatase Lactate Dehydrogenase C-Reactive Protein Total Protein 8.4 H Albumin 3.8 L Arterial Blood Glucose Coronavirus (PCR) 04/16/21 04/16/21 04/17/21 11:42 11:42 03:50 WBC MCV MCH MCHC RDW 16.0 H Lymph % (Auto) 7.7 L [place] % (Auto) Eos % (Auto) Lymph # (Auto) 0.6 L [place] # (Auto) Eos # (Auto) Baso # (Auto) Seg Neutrophils % 89.8 H Seg Neuts % (Manual) Lymphocytes % (Manual) Seg Neutrophils # Seg Neutrophils # Man Lymphocytes # (Manual) D-Dimer ABG pH POC ABG pCO2 POC ABG pO2 ABG pO2 ABG HCO3 ABG O2 Saturation ABG Base Excess ABG Oxyhemoglobin ABG Sodium ABG Chloride ABG Glucose Oxyhemoglobin Carboxyhemoglobin Sodium Potassium Chloride Carbon Dioxide BUN Creatinine Glucose 195 H POC Glucose Hemoglobin A1c Magnesium Ferritin 254.3 H AST ALT Alkaline Phosphatase Lactate Dehydrogenase 359 H C-Reactive Protein 15.20 H Total Protein Albumin Arterial Blood Glucose Coronavirus (PCR) 04/17/21 04/17/21 04/17/21 03:50 08:26 08:26 WBC MCV MCH MCHC RDW Lymph % (Auto) [place] % (Auto) Eos % (Auto) Lymph # (Auto) [place] # (Auto) Eos # (Auto) Baso # (Auto) Seg Neutrophils % Seg Neuts % (Manual) Lymphocytes % (Manual) Seg Neutrophils # Seg Neutrophils # Man Lymphocytes # (Manual) D-Dimer 262.48 H ABG pH POC ABG pCO2 POC ABG pO2 ABG pO2 ABG HCO3 ABG O2 Saturation ABG Base Excess ABG Oxyhemoglobin ABG Sodium ABG Chloride ABG Glucose Oxyhemoglobin Carboxyhemoglobin Sodium Potassium Chloride Carbon Dioxide BUN 20 H Creatinine 0.5 L Glucose 249 H 225 H POC Glucose Hemoglobin A1c Magnesium Ferritin AST ALT Alkaline Phosphatase Lactate Dehydrogenase 338 H C-Reactive Protein 17.20 H Total Protein Albumin 3.2 L Arterial Blood Glucose Coronavirus (PCR) 04/17/21 04/17/21 04/17/21 08:26 15:04 Unknown WBC MCV MCH MCHC RDW Lymph % (Auto) [place] % (Auto) Eos % (Auto) Lymph # (Auto) [place] # (Auto) Eos # (Auto) Baso # (Auto) Seg Neutrophils % Seg Neuts % (Manual) Lymphocytes % (Manual) Seg Neutrophils # Seg Neutrophils # Man Lymphocytes # (Manual) D-Dimer ABG pH POC ABG pCO2 POC ABG pO2 ABG pO2 ABG HCO3 ABG O2 Saturation ABG Base Excess ABG Oxyhemoglobin ABG Sodium ABG Chloride ABG Glucose Oxyhemoglobin Carboxyhemoglobin Sodium Potassium Chloride Carbon Dioxide BUN 20 H Creatinine 0.5 L Glucose 246 H POC Glucose Hemoglobin A1c Magnesium Ferritin 392.0 H AST ALT Alkaline Phosphatase Lactate Dehydrogenase C-Reactive Protein Total Protein 8.3 H Albumin 3.1 L Arterial Blood Glucose Coronavirus (PCR) Positive A 04/18/21 04/18/21 04/18/21 05:06 05:06 07:36 WBC 11.6 H MCV MCH MCHC RDW 16.1 H Lymph % (Auto) [place] % (Auto) Eos % (Auto) Lymph # (Auto) [place] # (Auto) Eos # (Auto) Baso # (Auto) Seg Neutrophils % Seg Neuts % (Manual) Lymphocytes % (Manual) Seg Neutrophils # Seg Neutrophils # Man Lymphocytes # (Manual) D-Dimer ABG pH POC ABG pCO2 POC ABG pO2 ABG pO2 ABG HCO3 ABG O2 Saturation ABG Base Excess ABG Oxyhemoglobin ABG Sodium ABG Chloride ABG Glucose Oxyhemoglobin Carboxyhemoglobin Sodium Potassium 5.2 H Chloride Carbon Dioxide BUN 22 H Creatinine 0.5 L Glucose 315 H POC Glucose Hemoglobin A1c 8.5 H Magnesium Ferritin AST ALT Alkaline Phosphatase Lactate Dehydrogenase C-Reactive Protein Total Protein Albumin 3.3 L Arterial Blood Glucose Coronavirus (PCR) 04/18/21 04/18/21 04/18/21 11:59 16:43 23:24 WBC MCV MCH MCHC RDW Lymph % (Auto) [place] % (Auto) Eos % (Auto) Lymph # (Auto) [place] # (Auto) Eos # (Auto) Baso # (Auto) Seg Neutrophils % Seg Neuts % (Manual) Lymphocytes % (Manual) Seg Neutrophils # Seg Neutrophils # Man Lymphocytes # (Manual) D-Dimer ABG pH POC ABG pCO2 POC ABG pO2 ABG pO2 ABG HCO3 ABG O2 Saturation ABG Base Excess ABG Oxyhemoglobin ABG Sodium ABG Chloride ABG Glucose Oxyhemoglobin Carboxyhemoglobin Sodium Potassium Chloride Carbon Dioxide BUN Creatinine Glucose POC Glucose 284 H 273 H 290 H Hemoglobin A1c Magnesium Ferritin AST ALT Alkaline Phosphatase Lactate Dehydrogenase C-Reactive Protein Total Protein Albumin Arterial Blood Glucose Coronavirus (PCR) 04/19/21 04/19/21 04/19/21 04:19 04:19 08:10 WBC MCV MCH MCHC RDW 15.7 H Lymph % (Auto) [place] % (Auto) Eos % (Auto) Lymph # (Auto) [place] # (Auto) Eos # (Auto) Baso # (Auto) Seg Neutrophils % Seg Neuts % (Manual) Lymphocytes % (Manual) Seg Neutrophils # Seg Neutrophils # Man Lymphocytes # (Manual) D-Dimer ABG pH POC ABG pCO2 POC ABG pO2 ABG pO2 ABG HCO3 ABG O2 Saturation ABG Base Excess ABG Oxyhemoglobin ABG Sodium ABG Chloride ABG Glucose Oxyhemoglobin Carboxyhemoglobin Sodium Potassium Chloride Carbon Dioxide BUN 27 H Creatinine 0.4 L Glucose 184 H POC Glucose 194 H Hemoglobin A1c Magnesium Ferritin AST ALT Alkaline Phosphatase Lactate Dehydrogenase C-Reactive Protein Total Protein Albumin 3.1 L Arterial Blood Glucose Coronavirus (PCR) 04/19/21 04/19/21 04/19/21 11:38 16:25 22:04 WBC MCV MCH MCHC RDW Lymph % (Auto) [place] % (Auto) Eos % (Auto) Lymph # (Auto) [place] # (Auto) Eos # (Auto) Baso # (Auto) Seg Neutrophils % Seg Neuts % (Manual) Lymphocytes % (Manual) Seg Neutrophils # Seg Neutrophils # Man Lymphocytes # (Manual) D-Dimer ABG pH POC ABG pCO2 POC ABG pO2 ABG pO2 ABG HCO3 ABG O2 Saturation ABG Base Excess ABG Oxyhemoglobin ABG Sodium ABG Chloride ABG Glucose Oxyhemoglobin Carboxyhemoglobin Sodium Potassium Chloride Carbon Dioxide BUN Creatinine Glucose POC Glucose 224 H 297 H 251 H Hemoglobin A1c Magnesium Ferritin AST ALT Alkaline Phosphatase Lactate Dehydrogenase C-Reactive Protein Total Protein Albumin Arterial Blood Glucose Coronavirus (PCR) 04/20/21 04/20/21 04/20/21 05:28 08:43 16:21 WBC MCV MCH MCHC RDW Lymph % (Auto) [place] % (Auto) Eos % (Auto) Lymph # (Auto) [place] # (Auto) Eos # (Auto) Baso # (Auto) Seg Neutrophils % Seg Neuts % (Manual) Lymphocytes % (Manual) Seg Neutrophils # Seg Neutrophils # Man Lymphocytes # (Manual) D-Dimer ABG pH POC ABG pCO2 POC ABG pO2 ABG pO2 ABG HCO3 ABG O2 Saturation ABG Base Excess ABG Oxyhemoglobin ABG Sodium ABG Chloride ABG Glucose Oxyhemoglobin Carboxyhemoglobin Sodium Potassium Chloride Carbon Dioxide BUN 27 H Creatinine Glucose 192 H POC Glucose 173 H 253 H Hemoglobin A1c Magnesium Ferritin AST ALT Alkaline Phosphatase Lactate Dehydrogenase C-Reactive Protein Total Protein Albumin 3.0 L Arterial Blood Glucose Coronavirus (PCR) 04/21/21 04/21/21 04/21/21 07:58 12:05 16:08 WBC MCV MCH MCHC RDW Lymph % (Auto) [place] % (Auto) Eos % (Auto) Lymph # (Auto) [place] # (Auto) Eos # (Auto) Baso # (Auto) Seg Neutrophils % Seg Neuts % (Manual) Lymphocytes % (Manual) Seg Neutrophils # Seg Neutrophils # Man Lymphocytes # (Manual) D-Dimer ABG pH POC ABG pCO2 POC ABG pO2 ABG pO2 ABG HCO3 ABG O2 Saturation ABG Base Excess ABG Oxyhemoglobin ABG Sodium ABG Chloride ABG Glucose Oxyhemoglobin Carboxyhemoglobin Sodium Potassium Chloride Carbon Dioxide BUN Creatinine Glucose POC Glucose 140 H 252 H 214 H Hemoglobin A1c Magnesium Ferritin AST ALT Alkaline Phosphatase Lactate Dehydrogenase C-Reactive Protein Total Protein Albumin Arterial Blood Glucose Coronavirus (PCR) 04/21/21 04/22/21 04/22/21 21:42 08:37 12:01 WBC MCV MCH MCHC RDW Lymph % (Auto) [place] % (Auto) Eos % (Auto) Lymph # (Auto) [place] # (Auto) Eos # (Auto) Baso # (Auto) Seg Neutrophils % Seg Neuts % (Manual) Lymphocytes % (Manual) Seg Neutrophils # Seg Neutrophils # Man Lymphocytes # (Manual) D-Dimer ABG pH 7.457 H POC ABG pCO2 POC ABG pO2 49.4 L ABG pO2 ABG HCO3 ABG O2 Saturation ABG Base Excess ABG Oxyhemoglobin 85.6 L ABG Sodium ABG Chloride ABG Glucose 121 H Oxyhemoglobin Carboxyhemoglobin 0.3 L Sodium Potassium Chloride Carbon Dioxide BUN Creatinine Glucose POC Glucose 162 H 227 H Hemoglobin A1c Magnesium Ferritin AST ALT Alkaline Phosphatase Lactate Dehydrogenase C-Reactive Protein Total Protein Albumin Arterial Blood Glucose 121 H Coronavirus (PCR) 04/22/21 04/22/21 04/23/21 16:26 22:23 04:52 WBC MCV MCH MCHC RDW 15.7 H Lymph % (Auto) [place] % (Auto) Eos % (Auto) Lymph # (Auto) [place] # (Auto) Eos # (Auto) Baso # (Auto) Seg Neutrophils % Seg Neuts % (Manual) Lymphocytes % (Manual) Seg Neutrophils # Seg Neutrophils # Man Lymphocytes # (Manual) D-Dimer ABG pH POC ABG pCO2 POC ABG pO2 ABG pO2 ABG HCO3 ABG O2 Saturation ABG Base Excess ABG Oxyhemoglobin ABG Sodium ABG Chloride ABG Glucose Oxyhemoglobin Carboxyhemoglobin Sodium Potassium Chloride Carbon Dioxide BUN Creatinine Glucose POC Glucose 200 H 136 H Hemoglobin A1c Magnesium Ferritin AST ALT Alkaline Phosphatase Lactate Dehydrogenase C-Reactive Protein Total Protein Albumin Arterial Blood Glucose Coronavirus (PCR) 04/23/21 04/23/21 04/23/21 04:52 12:06 17:41 WBC MCV MCH MCHC RDW Lymph % (Auto) [place] % (Auto) Eos % (Auto) Lymph # (Auto) [place] # (Auto) Eos # (Auto) Baso # (Auto) Seg Neutrophils % Seg Neuts % (Manual) Lymphocytes % (Manual) Seg Neutrophils # Seg Neutrophils # Man Lymphocytes # (Manual) D-Dimer ABG pH POC ABG pCO2 POC ABG pO2 ABG pO2 ABG HCO3 ABG O2 Saturation ABG Base Excess ABG Oxyhemoglobin ABG Sodium ABG Chloride ABG Glucose Oxyhemoglobin Carboxyhemoglobin Sodium 136 L Potassium Chloride 97.7 L Carbon Dioxide BUN 23 H Creatinine Glucose 101 H POC Glucose 202 H 169 H Hemoglobin A1c Magnesium Ferritin AST 46 H ALT Alkaline Phosphatase Lactate Dehydrogenase C-Reactive Protein Total Protein Albumin 3.3 L Arterial Blood Glucose Coronavirus (PCR) 04/23/21 04/24/21 04/24/21 23:08 05:17 08:38 WBC MCV MCH MCHC RDW Lymph % (Auto) [place] % (Auto) Eos % (Auto) Lymph # (Auto) [place] # (Auto) Eos # (Auto) Baso # (Auto) Seg Neutrophils % Seg Neuts % (Manual) Lymphocytes % (Manual) Seg Neutrophils # Seg Neutrophils # Man Lymphocytes # (Manual) D-Dimer ABG pH POC ABG pCO2 POC ABG pO2 ABG pO2 ABG HCO3 ABG O2 Saturation ABG Base Excess ABG Oxyhemoglobin ABG Sodium ABG Chloride ABG Glucose Oxyhemoglobin Carboxyhemoglobin Sodium Potassium Chloride Carbon Dioxide BUN Creatinine Glucose POC Glucose 111 H 108 H 126 H Hemoglobin A1c Magnesium Ferritin AST ALT Alkaline Phosphatase Lactate Dehydrogenase C-Reactive Protein Total Protein Albumin Arterial Blood Glucose Coronavirus (PCR) 04/24/21 04/24/21 04/24/21 11:54 17:57 21:23 WBC MCV MCH MCHC RDW Lymph % (Auto) [place] % (Auto) Eos % (Auto) Lymph # (Auto) [place] # (Auto) Eos # (Auto) Baso # (Auto) Seg Neutrophils % Seg Neuts % (Manual) Lymphocytes % (Manual) Seg Neutrophils # Seg Neutrophils # Man Lymphocytes # (Manual) D-Dimer ABG pH POC ABG pCO2 POC ABG pO2 ABG pO2 ABG HCO3 ABG O2 Saturation ABG Base Excess ABG Oxyhemoglobin ABG Sodium ABG Chloride ABG Glucose Oxyhemoglobin Carboxyhemoglobin Sodium Potassium Chloride Carbon Dioxide BUN Creatinine Glucose POC Glucose 147 H 177 H 138 H Hemoglobin A1c Magnesium Ferritin AST ALT Alkaline Phosphatase Lactate Dehydrogenase C-Reactive Protein Total Protein Albumin Arterial Blood Glucose Coronavirus (PCR) 04/25/21 04/25/21 04/25/21 07:06 11:23 15:43 WBC MCV MCH MCHC RDW Lymph % (Auto) [place] % (Auto) Eos % (Auto) Lymph # (Auto) [place] # (Auto) Eos # (Auto) Baso # (Auto) Seg Neutrophils % Seg Neuts % (Manual) Lymphocytes % (Manual) Seg Neutrophils # Seg Neutrophils # Man Lymphocytes # (Manual) D-Dimer ABG pH POC ABG pCO2 POC ABG pO2 ABG pO2 ABG HCO3 ABG O2 Saturation ABG Base Excess ABG Oxyhemoglobin ABG Sodium ABG Chloride ABG Glucose Oxyhemoglobin Carboxyhemoglobin Sodium Potassium Chloride Carbon Dioxide BUN Creatinine Glucose POC Glucose 147 H 169 H 227 H Hemoglobin A1c Magnesium Ferritin AST ALT Alkaline Phosphatase Lactate Dehydrogenase C-Reactive Protein Total Protein Albumin Arterial Blood Glucose Coronavirus (PCR) 04/25/21 04/26/21 04/26/21 21:22 02:45 05:15 WBC MCV MCH MCHC RDW Lymph % (Auto) [place] % (Auto) Eos % (Auto) Lymph # (Auto) [place] # (Auto) Eos # (Auto) Baso # (Auto) Seg Neutrophils % Seg Neuts % (Manual) Lymphocytes % (Manual) Seg Neutrophils # Seg Neutrophils # Man Lymphocytes # (Manual) D-Dimer ABG pH POC ABG pCO2 POC ABG pO2 70.7 L ABG pO2 ABG HCO3 ABG O2 Saturation ABG Base Excess ABG Oxyhemoglobin 93.0 L ABG Sodium 132.7 L ABG Chloride ABG Glucose 115 H Oxyhemoglobin Carboxyhemoglobin Sodium Potassium Chloride 95.8 L Carbon Dioxide 32 H BUN 20 H Creatinine Glucose 102 H POC Glucose 196 H Hemoglobin A1c Magnesium Ferritin AST ALT Alkaline Phosphatase Lactate Dehydrogenase C-Reactive Protein Total Protein Albumin Arterial Blood Glucose 115 H Coronavirus (PCR) 04/26/21 04/26/21 04/26/21 11:49 16:09 21:07 WBC MCV MCH MCHC RDW Lymph % (Auto) [place] % (Auto) Eos % (Auto) Lymph # (Auto) [place] # (Auto) Eos # (Auto) Baso # (Auto) Seg Neutrophils % Seg Neuts % (Manual) Lymphocytes % (Manual) Seg Neutrophils # Seg Neutrophils # Man Lymphocytes # (Manual) D-Dimer ABG pH POC ABG pCO2 POC ABG pO2 ABG pO2 ABG HCO3 ABG O2 Saturation ABG Base Excess ABG Oxyhemoglobin ABG Sodium ABG Chloride ABG Glucose Oxyhemoglobin Carboxyhemoglobin Sodium Potassium Chloride Carbon Dioxide BUN Creatinine Glucose POC Glucose 114 H 188 H 136 H Hemoglobin A1c Magnesium Ferritin AST ALT Alkaline Phosphatase Lactate Dehydrogenase C-Reactive Protein Total Protein Albumin Arterial Blood Glucose Coronavirus (PCR) 04/27/21 04/27/21 04/28/21 17:34 22:12 08:26 WBC MCV MCH MCHC RDW Lymph % (Auto) [place] % (Auto) Eos % (Auto) Lymph # (Auto) [place] # (Auto) Eos # (Auto) Baso # (Auto) Seg Neutrophils % Seg Neuts % (Manual) Lymphocytes % (Manual) Seg Neutrophils # Seg Neutrophils # Man Lymphocytes # (Manual) D-Dimer ABG pH POC ABG pCO2 POC ABG pO2 ABG pO2 ABG HCO3 ABG O2 Saturation ABG Base Excess ABG Oxyhemoglobin ABG Sodium ABG Chloride ABG Glucose Oxyhemoglobin Carboxyhemoglobin Sodium Potassium Chloride Carbon Dioxide BUN Creatinine Glucose POC Glucose 128 H 159 H 69 L Hemoglobin A1c Magnesium Ferritin AST ALT Alkaline Phosphatase Lactate Dehydrogenase C-Reactive Protein Total Protein Albumin Arterial Blood Glucose Coronavirus (PCR) 04/28/21 04/28/21 04/29/21 12:22 21:11 06:05 WBC MCV MCH MCHC RDW Lymph % (Auto) [place] % (Auto) Eos % (Auto) Lymph # (Auto) [place] # (Auto) Eos # (Auto) Baso # (Auto) Seg Neutrophils % Seg Neuts % (Manual) Lymphocytes % (Manual) Seg Neutrophils # Seg Neutrophils # Man Lymphocytes # (Manual) D-Dimer ABG pH POC ABG pCO2 POC ABG pO2 ABG pO2 ABG HCO3 ABG O2 Saturation ABG Base Excess ABG Oxyhemoglobin ABG Sodium ABG Chloride ABG Glucose Oxyhemoglobin Carboxyhemoglobin Sodium 132 L Potassium Chloride 94.4 L Carbon Dioxide BUN Creatinine 0.2 L D Glucose 140 H POC Glucose 141 H 171 H Hemoglobin A1c Magnesium Ferritin AST ALT Alkaline Phosphatase Lactate Dehydrogenase C-Reactive Protein Total Protein Albumin Arterial Blood Glucose Coronavirus (PCR) 04/29/21 04/29/21 04/29/21 06:05 07:24 11:36 WBC MCV MCH MCHC 35 H RDW 15.9 H Lymph % (Auto) [place] % (Auto) Eos % (Auto) Lymph # (Auto) [place] # (Auto) Eos # (Auto) Baso # (Auto) Seg Neutrophils % Seg Neuts % (Manual) Lymphocytes % (Manual) Seg Neutrophils # Seg Neutrophils # Man Lymphocytes # (Manual) D-Dimer ABG pH POC ABG pCO2 POC ABG pO2 ABG pO2 ABG HCO3 ABG O2 Saturation ABG Base Excess ABG Oxyhemoglobin ABG Sodium ABG Chloride ABG Glucose Oxyhemoglobin Carboxyhemoglobin Sodium Potassium Chloride Carbon Dioxide BUN Creatinine Glucose POC Glucose 141 H 220 H Hemoglobin A1c Magnesium Ferritin AST ALT Alkaline Phosphatase Lactate Dehydrogenase C-Reactive Protein Total Protein Albumin Arterial Blood Glucose Coronavirus (PCR) 04/29/21 04/29/21 04/29/21 14:23 15:30 17:06 WBC MCV MCH MCHC RDW Lymph % (Auto) [place] % (Auto) Eos % (Auto) Lymph # (Auto) [place] # (Auto) Eos # (Auto) Baso # (Auto) Seg Neutrophils % Seg Neuts % (Manual) Lymphocytes % (Manual) Seg Neutrophils # Seg Neutrophils # Man Lymphocytes # (Manual) D-Dimer ABG pH POC ABG pCO2 POC ABG pO2 ABG pO2 52.6 L ABG HCO3 ABG O2 Saturation 86.4 L ABG Base Excess ABG Oxyhemoglobin ABG Sodium ABG Chloride ABG Glucose Oxyhemoglobin 84.6 L Carboxyhemoglobin Sodium Potassium Chloride Carbon Dioxide BUN Creatinine Glucose POC Glucose 173 H 158 H Hemoglobin A1c Magnesium Ferritin AST ALT Alkaline Phosphatase Lactate Dehydrogenase C-Reactive Protein Total Protein Albumin Arterial Blood Glucose Coronavirus (PCR) 04/29/21 04/30/21 04/30/21 21:27 07:16 08:00 WBC MCV MCH MCHC RDW 16.1 H Lymph % (Auto) [place] % (Auto) Eos % (Auto) Lymph # (Auto) [place] # (Auto) Eos # (Auto) Baso # (Auto) Seg Neutrophils % Seg Neuts % (Manual) Lymphocytes % (Manual) Seg Neutrophils # Seg Neutrophils # Man Lymphocytes # (Manual) D-Dimer ABG pH POC ABG pCO2 POC ABG pO2 ABG pO2 ABG HCO3 ABG O2 Saturation ABG Base Excess ABG Oxyhemoglobin ABG Sodium ABG Chloride ABG Glucose Oxyhemoglobin Carboxyhemoglobin Sodium Potassium Chloride Carbon Dioxide BUN Creatinine Glucose POC Glucose 244 H 175 H Hemoglobin A1c Magnesium Ferritin AST ALT Alkaline Phosphatase Lactate Dehydrogenase C-Reactive Protein Total Protein Albumin Arterial Blood Glucose Coronavirus (PCR) 04/30/21 04/30/21 04/30/21 08:00 08:00 11:03 WBC MCV MCH MCHC RDW Lymph % (Auto) [place] % (Auto) Eos % (Auto) Lymph # (Auto) [place] # (Auto) Eos # (Auto) Baso # (Auto) Seg Neutrophils % Seg Neuts % (Manual) Lymphocytes % (Manual) Seg Neutrophils # Seg Neutrophils # Man Lymphocytes # (Manual) D-Dimer 1796.87 H ABG pH POC ABG pCO2 POC ABG pO2 ABG pO2 ABG HCO3 ABG O2 Saturation ABG Base Excess ABG Oxyhemoglobin ABG Sodium ABG Chloride ABG Glucose Oxyhemoglobin Carboxyhemoglobin Sodium 135 L Potassium Chloride 96.3 L Carbon Dioxide BUN Creatinine 0.2 L Glucose 153 H POC Glucose 183 H Hemoglobin A1c Magnesium Ferritin AST 41 H ALT 76 H Alkaline Phosphatase 160 H Lactate Dehydrogenase 522 H C-Reactive Protein Total Protein 6.1 L Albumin 3.1 L Arterial Blood Glucose Coronavirus (PCR) 04/30/21 04/30/21 05/01/21 17:04 22:17 05:39 WBC MCV MCH MCHC RDW Lymph % (Auto) [place] % (Auto) Eos % (Auto) Lymph # (Auto) [place] # (Auto) Eos # (Auto) Baso # (Auto) Seg Neutrophils % Seg Neuts % (Manual) Lymphocytes % (Manual) Seg Neutrophils # Seg Neutrophils # Man Lymphocytes # (Manual) D-Dimer ABG pH POC ABG pCO2 POC ABG pO2 ABG pO2 ABG HCO3 ABG O2 Saturation ABG Base Excess ABG Oxyhemoglobin ABG Sodium ABG Chloride ABG Glucose Oxyhemoglobin Carboxyhemoglobin Sodium 133 L Potassium Chloride 92.1 L Carbon Dioxide BUN 24 H Creatinine 0.4 L D Glucose 269 H POC Glucose 167 H 208 H Hemoglobin A1c Magnesium Ferritin AST ALT 66 H Alkaline Phosphatase 142 H Lactate Dehydrogenase C-Reactive Protein Total Protein Albumin 3.2 L Arterial Blood Glucose Coronavirus (PCR) 05/01/21 05/01/21 05/01/21 05:39 05:39 07:45 WBC MCV MCH MCHC RDW 16.0 H Lymph % (Auto) [place] % (Auto) Eos % (Auto) Lymph # (Auto) [place] # (Auto) Eos # (Auto) Baso # (Auto) Seg Neutrophils % Seg Neuts % (Manual) Lymphocytes % (Manual) Seg Neutrophils # Seg Neutrophils # Man Lymphocytes # (Manual) D-Dimer 3984.95 H ABG pH POC ABG pCO2 POC ABG pO2 ABG pO2 ABG HCO3 ABG O2 Saturation ABG Base Excess ABG Oxyhemoglobin ABG Sodium ABG Chloride ABG Glucose Oxyhemoglobin Carboxyhemoglobin Sodium Potassium Chloride Carbon Dioxide BUN Creatinine Glucose POC Glucose 229 H Hemoglobin A1c Magnesium Ferritin AST ALT Alkaline Phosphatase Lactate Dehydrogenase C-Reactive Protein Total Protein Albumin Arterial Blood Glucose Coronavirus (PCR) 05/01/21 05/01/21 05/01/21 12:10 15:46 21:06 WBC MCV MCH MCHC RDW Lymph % (Auto) [place] % (Auto) Eos % (Auto) Lymph # (Auto) [place] # (Auto) Eos # (Auto) Baso # (Auto) Seg Neutrophils % Seg Neuts % (Manual) Lymphocytes % (Manual) Seg Neutrophils # Seg Neutrophils # Man Lymphocytes # (Manual) D-Dimer ABG pH POC ABG pCO2 POC ABG pO2 ABG pO2 ABG HCO3 ABG O2 Saturation ABG Base Excess ABG Oxyhemoglobin ABG Sodium ABG Chloride ABG Glucose Oxyhemoglobin Carboxyhemoglobin Sodium Potassium Chloride Carbon Dioxide BUN Creatinine Glucose POC Glucose 296 H 279 H 232 H Hemoglobin A1c Magnesium Ferritin AST ALT Alkaline Phosphatase Lactate Dehydrogenase C-Reactive Protein Total Protein Albumin Arterial Blood Glucose Coronavirus (PCR) 05/02/21 05/02/21 05/02/21 04:55 04:55 04:55 WBC MCV MCH MCHC RDW 16.1 H Lymph % (Auto) [place] % (Auto) Eos % (Auto) Lymph # (Auto) [place] # (Auto) Eos # (Auto) Baso # (Auto) Seg Neutrophils % Seg Neuts % (Manual) Lymphocytes % (Manual) Seg Neutrophils # Seg Neutrophils # Man Lymphocytes # (Manual) D-Dimer 1401.08 H ABG pH POC ABG pCO2 POC ABG pO2 ABG pO2 ABG HCO3 ABG O2 Saturation ABG Base Excess ABG Oxyhemoglobin ABG Sodium ABG Chloride ABG Glucose Oxyhemoglobin Carboxyhemoglobin Sodium 131 L Potassium Chloride 95.5 L Carbon Dioxide BUN 20 H Creatinine 0.3 L Glucose 288 H POC Glucose Hemoglobin A1c Magnesium Ferritin AST ALT Alkaline Phosphatase Lactate Dehydrogenase C-Reactive Protein Total Protein 6.0 L Albumin 3.1 L Arterial Blood Glucose Coronavirus (PCR) 05/02/21 05/02/21 05/02/21 07:53 11:45 15:25 WBC MCV MCH MCHC RDW Lymph % (Auto) [place] % (Auto) Eos % (Auto) Lymph # (Auto) [place] # (Auto) Eos # (Auto) Baso # (Auto) Seg Neutrophils % Seg Neuts % (Manual) Lymphocytes % (Manual) Seg Neutrophils # Seg Neutrophils # Man Lymphocytes # (Manual) D-Dimer ABG pH POC ABG pCO2 POC ABG pO2 ABG pO2 ABG HCO3 ABG O2 Saturation ABG Base Excess ABG Oxyhemoglobin ABG Sodium ABG Chloride ABG Glucose Oxyhemoglobin Carboxyhemoglobin Sodium Potassium Chloride Carbon Dioxide BUN Creatinine Glucose POC Glucose 180 H 228 H 275 H Hemoglobin A1c Magnesium Ferritin AST ALT Alkaline Phosphatase Lactate Dehydrogenase C-Reactive Protein Total Protein Albumin Arterial Blood Glucose Coronavirus (PCR) 05/02/21 05/03/21 05/03/21 22:56 04:30 04:49 WBC MCV MCH MCHC RDW Lymph % (Auto) [place] % (Auto) Eos % (Auto) Lymph # (Auto) [place] # (Auto) Eos # (Auto) Baso # (Auto) Seg Neutrophils % Seg Neuts % (Manual) Lymphocytes % (Manual) Seg Neutrophils # Seg Neutrophils # Man Lymphocytes # (Manual) D-Dimer ABG pH 7.229 L POC ABG pCO2 POC ABG pO2 65.3 L ABG pO2 ABG HCO3 ABG O2 Saturation ABG Base Excess ABG Oxyhemoglobin 87.8 L ABG Sodium 133.0 L ABG Chloride 97.0 L ABG Glucose 403 H Oxyhemoglobin Carboxyhemoglobin Sodium 130 L Potassium Chloride 94.9 L Carbon Dioxide BUN 20 H Creatinine 0.5 L D Glucose 359 H POC Glucose 293 H Hemoglobin A1c Magnesium Ferritin AST 54 H ALT 75 H Alkaline Phosphatase 138 H Lactate Dehydrogenase C-Reactive Protein Total Protein Albumin 3.6 L Arterial Blood Glucose 403 H Coronavirus (PCR) 05/03/21 05/03/21 05/03/21 05:27 11:26 17:57 WBC MCV MCH MCHC RDW Lymph % (Auto) [place] % (Auto) Eos % (Auto) Lymph # (Auto) [place] # (Auto) Eos # (Auto) Baso # (Auto) Seg Neutrophils % Seg Neuts % (Manual) Lymphocytes % (Manual) Seg Neutrophils # Seg Neutrophils # Man Lymphocytes # (Manual) D-Dimer ABG pH POC ABG pCO2 POC ABG pO2 ABG pO2 ABG HCO3 ABG O2 Saturation ABG Base Excess ABG Oxyhemoglobin ABG Sodium ABG Chloride ABG Glucose Oxyhemoglobin Carboxyhemoglobin Sodium Potassium Chloride Carbon Dioxide BUN Creatinine Glucose POC Glucose 361 H 297 H 226 H Hemoglobin A1c Magnesium Ferritin AST ALT Alkaline Phosphatase Lactate Dehydrogenase C-Reactive Protein Total Protein Albumin Arterial Blood Glucose Coronavirus (PCR) 05/03/21 05/04/21 05/04/21 23:12 05:12 07:30 WBC MCV MCH MCHC RDW Lymph % (Auto) [place] % (Auto) Eos % (Auto) Lymph # (Auto) [place] # (Auto) Eos # (Auto) Baso # (Auto) Seg Neutrophils % Seg Neuts % (Manual) Lymphocytes % (Manual) Seg Neutrophils # Seg Neutrophils # Man Lymphocytes # (Manual) D-Dimer ABG pH POC ABG pCO2 POC ABG pO2 ABG pO2 ABG HCO3 ABG O2 Saturation ABG Base Excess ABG Oxyhemoglobin ABG Sodium ABG Chloride ABG Glucose Oxyhemoglobin Carboxyhemoglobin Sodium Potassium Chloride Carbon Dioxide BUN Creatinine Glucose POC Glucose 282 H 285 H 254 H Hemoglobin A1c Magnesium Ferritin AST ALT Alkaline Phosphatase Lactate Dehydrogenase C-Reactive Protein Total Protein Albumin Arterial Blood Glucose Coronavirus (PCR) 05/04/21 05/04/21 05/04/21 08:58 11:45 16:07 WBC MCV MCH MCHC RDW Lymph % (Auto) [place] % (Auto) Eos % (Auto) Lymph # (Auto) [place] # (Auto) Eos # (Auto) Baso # (Auto) Seg Neutrophils % Seg Neuts % (Manual) Lymphocytes % (Manual) Seg Neutrophils # Seg Neutrophils # Man Lymphocytes # (Manual) D-Dimer ABG pH POC ABG pCO2 POC ABG pO2 ABG pO2 ABG HCO3 ABG O2 Saturation ABG Base Excess ABG Oxyhemoglobin ABG Sodium ABG Chloride ABG Glucose Oxyhemoglobin Carboxyhemoglobin Sodium 134 L Potassium Chloride Carbon Dioxide BUN 20 H Creatinine 0.3 L Glucose 267 H POC Glucose 244 H 297 H Hemoglobin A1c Magnesium Ferritin AST ALT Alkaline Phosphatase Lactate Dehydrogenase C-Reactive Protein Total Protein 6.0 L Albumin 3.2 L Arterial Blood Glucose Coronavirus (PCR) 05/04/21 05/05/21 05/05/21 23:32 05:00 05:13 WBC MCV MCH MCHC RDW Lymph % (Auto) [place] % (Auto) Eos % (Auto) Lymph # (Auto) [place] # (Auto) Eos # (Auto) Baso # (Auto) Seg Neutrophils % Seg Neuts % (Manual) Lymphocytes % (Manual) Seg Neutrophils # Seg Neutrophils # Man Lymphocytes # (Manual) D-Dimer ABG pH POC ABG pCO2 POC ABG pO2 ABG pO2 ABG HCO3 ABG O2 Saturation ABG Base Excess ABG Oxyhemoglobin ABG Sodium ABG Chloride ABG Glucose Oxyhemoglobin Carboxyhemoglobin Sodium 132 L Potassium Chloride 96.4 L Carbon Dioxide BUN 22 H Creatinine 0.3 L Glucose 228 H POC Glucose 154 H 260 H Hemoglobin A1c Magnesium Ferritin AST ALT 67 H Alkaline Phosphatase Lactate Dehydrogenase C-Reactive Protein Total Protein 6.1 L Albumin 3.2 L Arterial Blood Glucose Coronavirus (PCR) 05/05/21 05/05/21 05/05/21 11:32 17:49 23:07 WBC MCV MCH MCHC RDW Lymph % (Auto) [place] % (Auto) Eos % (Auto) Lymph # (Auto) [place] # (Auto) Eos # (Auto) Baso # (Auto) Seg Neutrophils % Seg Neuts % (Manual) Lymphocytes % (Manual) Seg Neutrophils # Seg Neutrophils # Man Lymphocytes # (Manual) D-Dimer ABG pH POC ABG pCO2 POC ABG pO2 ABG pO2 ABG HCO3 ABG O2 Saturation ABG Base Excess ABG Oxyhemoglobin ABG Sodium ABG Chloride ABG Glucose Oxyhemoglobin Carboxyhemoglobin Sodium Potassium Chloride Carbon Dioxide BUN Creatinine Glucose POC Glucose 279 H 308 H 213 H Hemoglobin A1c Magnesium Ferritin AST ALT Alkaline Phosphatase Lactate Dehydrogenase C-Reactive Protein Total Protein Albumin Arterial Blood Glucose Coronavirus (PCR) 05/06/21 05/06/21 05/06/21 05:00 05:00 05:20 WBC MCV MCH MCHC RDW 16.8 H Lymph % (Auto) [place] % (Auto) Eos % (Auto) Lymph # (Auto) [place] # (Auto) Eos # (Auto) Baso # (Auto) Seg Neutrophils % Seg Neuts % (Manual) 99.0 H Lymphocytes % (Manual) Seg Neutrophils # Seg Neutrophils # Man 10.9 H Lymphocytes # (Manual) 0.0 L D-Dimer ABG pH POC ABG pCO2 POC ABG pO2 ABG pO2 ABG HCO3 ABG O2 Saturation ABG Base Excess ABG Oxyhemoglobin ABG Sodium ABG Chloride ABG Glucose Oxyhemoglobin Carboxyhemoglobin Sodium 133 L Potassium Chloride Carbon Dioxide BUN 21 H Creatinine 0.3 L Glucose 259 H POC Glucose 308 H Hemoglobin A1c Magnesium Ferritin AST ALT Alkaline Phosphatase Lactate Dehydrogenase C-Reactive Protein Total Protein Albumin 3.2 L Arterial Blood Glucose Coronavirus (PCR) 05/06/21 05/06/21 05/06/21 11:24 17:54 21:32 WBC MCV MCH MCHC RDW Lymph % (Auto) [place] % (Auto) Eos % (Auto) Lymph # (Auto) [place] # (Auto) Eos # (Auto) Baso # (Auto) Seg Neutrophils % Seg Neuts % (Manual) Lymphocytes % (Manual) Seg Neutrophils # Seg Neutrophils # Man Lymphocytes # (Manual) D-Dimer ABG pH POC ABG pCO2 POC ABG pO2 ABG pO2 ABG HCO3 ABG O2 Saturation ABG Base Excess ABG Oxyhemoglobin ABG Sodium ABG Chloride ABG Glucose Oxyhemoglobin Carboxyhemoglobin Sodium Potassium Chloride Carbon Dioxide BUN Creatinine Glucose POC Glucose 262 H 124 H 246 H Hemoglobin A1c Magnesium Ferritin AST ALT Alkaline Phosphatase Lactate Dehydrogenase C-Reactive Protein Total Protein Albumin Arterial Blood Glucose Coronavirus (PCR) 05/06/21 05/07/21 05/07/21 23:10 04:54 04:54 WBC MCV MCH MCHC RDW Lymph % (Auto) [place] % (Auto) Eos % (Auto) Lymph # (Auto) [place] # (Auto) Eos # (Auto) Baso # (Auto) Seg Neutrophils % Seg Neuts % (Manual) Lymphocytes % (Manual) Seg Neutrophils # Seg Neutrophils # Man Lymphocytes # (Manual) D-Dimer 1609.28 H ABG pH POC ABG pCO2 POC ABG pO2 ABG pO2 ABG HCO3 ABG O2 Saturation ABG Base Excess ABG Oxyhemoglobin ABG Sodium ABG Chloride ABG Glucose Oxyhemoglobin Carboxyhemoglobin Sodium 136 L Potassium Chloride Carbon Dioxide BUN 23 H Creatinine 0.3 L Glucose 110 H POC Glucose 249 H Hemoglobin A1c Magnesium Ferritin AST ALT Alkaline Phosphatase Lactate Dehydrogenase C-Reactive Protein Total Protein 6.2 L Albumin 3.0 L Arterial Blood Glucose Coronavirus (PCR) 0805/07/21 05/07/21 04:54 04:54 11:41 WBC MCV MCH MCHC RDW Lymph % (Auto) [place] % (Auto) Eos % (Auto) Lymph # (Auto) [place] # (Auto) Eos # (Auto) Baso # (Auto) Seg Neutrophils % Seg Neuts % (Manual) Lymphocytes % (Manual) Seg Neutrophils # Seg Neutrophils # Man Lymphocytes # (Manual) D-Dimer ABG pH POC ABG pCO2 POC ABG pO2 ABG pO2 ABG HCO3 ABG O2 Saturation ABG Base Excess ABG Oxyhemoglobin ABG Sodium ABG Chloride ABG Glucose Oxyhemoglobin Carboxyhemoglobin Sodium Potassium Chloride Carbon Dioxide BUN Creatinine Glucose POC Glucose 118 H Hemoglobin A1c Magnesium Ferritin 296.1 H AST ALT Alkaline Phosphatase Lactate Dehydrogenase 724 H C-Reactive Protein Total Protein Albumin Arterial Blood Glucose Coronavirus (PCR) 05/07/21 05/07/21 05/08/21 16:43 22:34 06:44 WBC MCV MCH MCHC RDW Lymph % (Auto) [place] % (Auto) Eos % (Auto) Lymph # (Auto) [place] # (Auto) Eos # (Auto) Baso # (Auto) Seg Neutrophils % Seg Neuts % (Manual) Lymphocytes % (Manual) Seg Neutrophils # Seg Neutrophils # Man Lymphocytes # (Manual) D-Dimer ABG pH POC ABG pCO2 POC ABG pO2 ABG pO2 ABG HCO3 ABG O2 Saturation ABG Base Excess ABG Oxyhemoglobin ABG Sodium ABG Chloride ABG Glucose Oxyhemoglobin Carboxyhemoglobin Sodium Potassium Chloride Carbon Dioxide BUN Creatinine Glucose POC Glucose 159 H 233 H 235 H Hemoglobin A1c Magnesium Ferritin AST ALT Alkaline Phosphatase Lactate Dehydrogenase C-Reactive Protein Total Protein Albumin Arterial Blood Glucose Coronavirus (PCR) 05/08/21 05/08/21 05/08/21 07:49 11:56 17:13 WBC MCV MCH MCHC RDW Lymph % (Auto) [place] % (Auto) Eos % (Auto) Lymph # (Auto) [place] # (Auto) Eos # (Auto) Baso # (Auto) Seg Neutrophils % Seg Neuts % (Manual) Lymphocytes % (Manual) Seg Neutrophils # Seg Neutrophils # Man Lymphocytes # (Manual) D-Dimer ABG pH POC ABG pCO2 POC ABG pO2 ABG pO2 ABG HCO3 ABG O2 Saturation ABG Base Excess ABG Oxyhemoglobin ABG Sodium ABG Chloride ABG Glucose Oxyhemoglobin Carboxyhemoglobin Sodium Potassium Chloride Carbon Dioxide BUN Creatinine Glucose POC Glucose 219 H 184 H 182 H Hemoglobin A1c Magnesium Ferritin AST ALT Alkaline Phosphatase Lactate Dehydrogenase C-Reactive Protein Total Protein Albumin Arterial Blood Glucose Coronavirus (PCR) 05/08/21 05/09/21 05/09/21 23:35 05:20 05:20 WBC MCV MCH MCHC RDW Lymph % (Auto) [place] % (Auto) Eos % (Auto) Lymph # (Auto) [place] # (Auto) Eos # (Auto) Baso # (Auto) Seg Neutrophils % Seg Neuts % (Manual) Lymphocytes % (Manual) Seg Neutrophils # Seg Neutrophils # Man Lymphocytes # (Manual) D-Dimer 1003.87 H ABG pH POC ABG pCO2 POC ABG pO2 ABG pO2 ABG HCO3 ABG O2 Saturation ABG Base Excess ABG Oxyhemoglobin ABG Sodium ABG Chloride ABG Glucose Oxyhemoglobin Carboxyhemoglobin Sodium Potassium Chloride Carbon Dioxide BUN Creatinine Glucose POC Glucose 198 H Hemoglobin A1c Magnesium Ferritin 378.7 H AST ALT Alkaline Phosphatase Lactate Dehydrogenase C-Reactive Protein Total Protein Albumin Arterial Blood Glucose Coronavirus (PCR) 05/09/21 05/09/21 05/09/21 05:20 06:04 12:53 WBC MCV MCH MCHC RDW Lymph % (Auto) [place] % (Auto) Eos % (Auto) Lymph # (Auto) [place] # (Auto) Eos # (Auto) Baso # (Auto) Seg Neutrophils % Seg Neuts % (Manual) Lymphocytes % (Manual) Seg Neutrophils # Seg Neutrophils # Man Lymphocytes # (Manual) D-Dimer ABG pH POC ABG pCO2 POC ABG pO2 ABG pO2 ABG HCO3 ABG O2 Saturation ABG Base Excess ABG Oxyhemoglobin ABG Sodium ABG Chloride ABG Glucose Oxyhemoglobin Carboxyhemoglobin Sodium Potassium Chloride Carbon Dioxide BUN Creatinine Glucose POC Glucose 159 H 180 H Hemoglobin A1c Magnesium Ferritin AST ALT Alkaline Phosphatase Lactate Dehydrogenase 558 H C-Reactive Protein 2.40 H Total Protein Albumin Arterial Blood Glucose Coronavirus (PCR) 05/09/21 05/09/21 05/10/21 16:43 21:27 10:18 WBC MCV MCH MCHC RDW Lymph % (Auto) [place] % (Auto) Eos % (Auto) Lymph # (Auto) [place] # (Auto) Eos # (Auto) Baso # (Auto) Seg Neutrophils % Seg Neuts % (Manual) Lymphocytes % (Manual) Seg Neutrophils # Seg Neutrophils # Man Lymphocytes # (Manual) D-Dimer ABG pH POC ABG pCO2 POC ABG pO2 ABG pO2 ABG HCO3 ABG O2 Saturation ABG Base Excess ABG Oxyhemoglobin ABG Sodium ABG Chloride ABG Glucose Oxyhemoglobin Carboxyhemoglobin Sodium Potassium Chloride Carbon Dioxide BUN Creatinine Glucose POC Glucose 212 H 285 H 261 H Hemoglobin A1c Magnesium Ferritin AST ALT Alkaline Phosphatase Lactate Dehydrogenase C-Reactive Protein Total Protein Albumin Arterial Blood Glucose Coronavirus (PCR) 05/10/21 05/10/21 05/11/21 17:58 18:02 00:29 WBC MCV MCH MCHC RDW Lymph % (Auto) [place] % (Auto) Eos % (Auto) Lymph # (Auto) [place] # (Auto) Eos # (Auto) Baso # (Auto) Seg Neutrophils % Seg Neuts % (Manual) Lymphocytes % (Manual) Seg Neutrophils # Seg Neutrophils # Man Lymphocytes # (Manual) D-Dimer ABG pH POC ABG pCO2 POC ABG pO2 ABG pO2 ABG HCO3 ABG O2 Saturation ABG Base Excess ABG Oxyhemoglobin ABG Sodium ABG Chloride ABG Glucose Oxyhemoglobin Carboxyhemoglobin Sodium Potassium Chloride Carbon Dioxide BUN Creatinine Glucose POC Glucose 213 H 179 H 149 H Hemoglobin A1c Magnesium Ferritin AST ALT Alkaline Phosphatase Lactate Dehydrogenase C-Reactive Protein Total Protein Albumin Arterial Blood Glucose Coronavirus (PCR) 05/11/21 05/11/21 05/11/21 05:22 11:32 17:00 WBC 14.9 H MCV MCH MCHC RDW 18.9 H Lymph % (Auto) 4.9 L [place] % (Auto) Eos % (Auto) Lymph # (Auto) 0.7 L [place] # (Auto) Eos # (Auto) Baso # (Auto) 0.2 H Seg Neutrophils % Seg Neuts % (Manual) Lymphocytes % (Manual) Seg Neutrophils # 13.3 H Seg Neutrophils # Man Lymphocytes # (Manual) D-Dimer ABG pH POC ABG pCO2 POC ABG pO2 ABG pO2 ABG HCO3 ABG O2 Saturation ABG Base Excess ABG Oxyhemoglobin ABG Sodium ABG Chloride ABG Glucose Oxyhemoglobin Carboxyhemoglobin Sodium Potassium Chloride Carbon Dioxide BUN Creatinine Glucose POC Glucose 162 H 179 H Hemoglobin A1c Magnesium Ferritin AST ALT Alkaline Phosphatase Lactate Dehydrogenase C-Reactive Protein Total Protein Albumin Arterial Blood Glucose Coronavirus (PCR) 08/05/11/21 05/11/21 17:00 17:33 22:03 WBC MCV MCH MCHC RDW Lymph % (Auto) [place] % (Auto) Eos % (Auto) Lymph # (Auto) [place] # (Auto) Eos # (Auto) Baso # (Auto) Seg Neutrophils % Seg Neuts % (Manual) Lymphocytes % (Manual) Seg Neutrophils # Seg Neutrophils # Man Lymphocytes # (Manual) D-Dimer ABG pH POC ABG pCO2 POC ABG pO2 ABG pO2 ABG HCO3 ABG O2 Saturation ABG Base Excess ABG Oxyhemoglobin ABG Sodium ABG Chloride ABG Glucose Oxyhemoglobin Carboxyhemoglobin Sodium 135 L Potassium Chloride 97.3 L Carbon Dioxide BUN 21 H Creatinine 0.3 L Glucose 133 H POC Glucose 140 H 282 H Hemoglobin A1c Magnesium Ferritin AST ALT 60 H Alkaline Phosphatase Lactate Dehydrogenase C-Reactive Protein Total Protein Albumin 3.1 L Arterial Blood Glucose Coronavirus (PCR) 05/12/21 05/12/21 05/12/21 04:05 04:05 04:05 WBC MCV MCH MCHC RDW 18.4 H Lymph % (Auto) [place] % (Auto) Eos % (Auto) Lymph # (Auto) [place] # (Auto) Eos # (Auto) Baso # (Auto) Seg Neutrophils % Seg Neuts % (Manual) 94.0 H Lymphocytes % (Manual) 4.0 L Seg Neutrophils # Seg Neutrophils # Man Lymphocytes # (Manual) 0.3 L D-Dimer ABG pH POC ABG pCO2 POC ABG pO2 ABG pO2 ABG HCO3 ABG O2 Saturation ABG Base Excess ABG Oxyhemoglobin ABG Sodium ABG Chloride ABG Glucose Oxyhemoglobin Carboxyhemoglobin Sodium 136 L Potassium Chloride Carbon Dioxide BUN 18 H Creatinine 0.2 L Glucose 142 H POC Glucose Hemoglobin A1c Magnesium Ferritin 350.7 H AST ALT Alkaline Phosphatase Lactate Dehydrogenase 546 H C-Reactive Protein Total Protein 6.1 L Albumin 3.0 L Arterial Blood Glucose Coronavirus (PCR) 05/12/21 05/12/21 05/12/21 05:11 11:17 16:27 WBC MCV MCH MCHC RDW Lymph % (Auto) [place] % (Auto) Eos % (Auto) Lymph # (Auto) [place] # (Auto) Eos # (Auto) Baso # (Auto) Seg Neutrophils % Seg Neuts % (Manual) Lymphocytes % (Manual) Seg Neutrophils # Seg Neutrophils # Man Lymphocytes # (Manual) D-Dimer ABG pH POC ABG pCO2 POC ABG pO2 ABG pO2 ABG HCO3 ABG O2 Saturation ABG Base Excess ABG Oxyhemoglobin ABG Sodium ABG Chloride ABG Glucose Oxyhemoglobin Carboxyhemoglobin Sodium Potassium Chloride Carbon Dioxide BUN Creatinine Glucose POC Glucose 152 H 190 H 261 H Hemoglobin A1c Magnesium Ferritin AST ALT Alkaline Phosphatase Lactate Dehydrogenase C-Reactive Protein Total Protein Albumin Arterial Blood Glucose Coronavirus (PCR) 05/12/21 05/13/21 05/13/21 20:55 11:08 21:41 WBC MCV MCH MCHC RDW Lymph % (Auto) [place] % (Auto) Eos % (Auto) Lymph # (Auto) [place] # (Auto) Eos # (Auto) Baso # (Auto) Seg Neutrophils % Seg Neuts % (Manual) Lymphocytes % (Manual) Seg Neutrophils # Seg Neutrophils # Man Lymphocytes # (Manual) D-Dimer ABG pH POC ABG pCO2 POC ABG pO2 ABG pO2 ABG HCO3 ABG O2 Saturation ABG Base Excess ABG Oxyhemoglobin ABG Sodium ABG Chloride ABG Glucose Oxyhemoglobin Carboxyhemoglobin Sodium Potassium Chloride Carbon Dioxide BUN Creatinine Glucose POC Glucose 231 H 106 H 174 H Hemoglobin A1c Magnesium Ferritin AST ALT Alkaline Phosphatase Lactate Dehydrogenase C-Reactive Protein Total Protein Albumin Arterial Blood Glucose Coronavirus (PCR) 05/14/21 05/14/21 05/14/21 00:53 02:23 06:06 WBC MCV MCH MCHC RDW Lymph % (Auto) [place] % (Auto) Eos % (Auto) Lymph # (Auto) [place] # (Auto) Eos # (Auto) Baso # (Auto) Seg Neutrophils % Seg Neuts % (Manual) Lymphocytes % (Manual) Seg Neutrophils # Seg Neutrophils # Man Lymphocytes # (Manual) D-Dimer ABG pH POC ABG pCO2 POC ABG pO2 ABG pO2 130.3 H ABG HCO3 30.6 H ABG O2 Saturation ABG Base Excess 4.9 H ABG Oxyhemoglobin ABG Sodium ABG Chloride ABG Glucose Oxyhemoglobin Carboxyhemoglobin Sodium Potassium Chloride Carbon Dioxide BUN Creatinine Glucose POC Glucose 229 H 119 H Hemoglobin A1c Magnesium Ferritin AST ALT Alkaline Phosphatase Lactate Dehydrogenase C-Reactive Protein Total Protein Albumin Arterial Blood Glucose Coronavirus (PCR) 05/14/21 05/14/21 05/14/21 07:13 07:13 07:13 WBC MCV MCH MCHC RDW Lymph % (Auto) [place] % (Auto) Eos % (Auto) Lymph # (Auto) [place] # (Auto) Eos # (Auto) Baso # (Auto) Seg Neutrophils % Seg Neuts % (Manual) Lymphocytes % (Manual) Seg Neutrophils # Seg Neutrophils # Man Lymphocytes # (Manual) D-Dimer 712.80 H ABG pH POC ABG pCO2 POC ABG pO2 ABG pO2 ABG HCO3 ABG O2 Saturation ABG Base Excess ABG Oxyhemoglobin ABG Sodium ABG Chloride ABG Glucose Oxyhemoglobin Carboxyhemoglobin Sodium 133 L Potassium Chloride 95.5 L Carbon Dioxide 32 H BUN Creatinine 0.2 L Glucose 137 H POC Glucose Hemoglobin A1c Magnesium Ferritin 283.5 H AST ALT 63 H Alkaline Phosphatase Lactate Dehydrogenase 563 H C-Reactive Protein Total Protein 6.1 L Albumin 3.0 L Arterial Blood Glucose Coronavirus (PCR) 05/14/21 05/14/21 05/14/21 12:21 15:33 21:50 WBC MCV MCH MCHC RDW Lymph % (Auto) [place] % (Auto) Eos % (Auto) Lymph # (Auto) [place] # (Auto) Eos # (Auto) Baso # (Auto) Seg Neutrophils % Seg Neuts % (Manual) Lymphocytes % (Manual) Seg Neutrophils # Seg Neutrophils # Man Lymphocytes # (Manual) D-Dimer ABG pH POC ABG pCO2 POC ABG pO2 ABG pO2 ABG HCO3 ABG O2 Saturation ABG Base Excess ABG Oxyhemoglobin ABG Sodium ABG Chloride ABG Glucose Oxyhemoglobin Carboxyhemoglobin Sodium Potassium Chloride Carbon Dioxide BUN Creatinine Glucose POC Glucose 143 H 204 H 202 H Hemoglobin A1c Magnesium Ferritin AST ALT Alkaline Phosphatase Lactate Dehydrogenase C-Reactive Protein Total Protein Albumin Arterial Blood Glucose Coronavirus (PCR) 05/15/21 05/15/21 05/15/21 05:05 11:12 16:39 WBC MCV MCH MCHC RDW Lymph % (Auto) [place] % (Auto) Eos % (Auto) Lymph # (Auto) [place] # (Auto) Eos # (Auto) Baso # (Auto) Seg Neutrophils % Seg Neuts % (Manual) Lymphocytes % (Manual) Seg Neutrophils # Seg Neutrophils # Man Lymphocytes # (Manual) D-Dimer ABG pH POC ABG pCO2 POC ABG pO2 ABG pO2 ABG HCO3 ABG O2 Saturation ABG Base Excess ABG Oxyhemoglobin ABG Sodium ABG Chloride ABG Glucose Oxyhemoglobin Carboxyhemoglobin Sodium Potassium Chloride Carbon Dioxide BUN Creatinine Glucose POC Glucose 125 H 201 H 241 H Hemoglobin A1c Magnesium Ferritin AST ALT Alkaline Phosphatase Lactate Dehydrogenase C-Reactive Protein Total Protein Albumin Arterial Blood Glucose Coronavirus (PCR) 05/15/21 05/16/21 05/16/21 21:31 05:04 10:40 WBC MCV MCH MCHC RDW Lymph % (Auto) [place] % (Auto) Eos % (Auto) Lymph # (Auto) [place] # (Auto) Eos # (Auto) Baso # (Auto) Seg Neutrophils % Seg Neuts % (Manual) Lymphocytes % (Manual) Seg Neutrophils # Seg Neutrophils # Man Lymphocytes # (Manual) D-Dimer ABG pH POC ABG pCO2 POC ABG pO2 ABG pO2 ABG HCO3 ABG O2 Saturation ABG Base Excess ABG Oxyhemoglobin ABG Sodium ABG Chloride ABG Glucose Oxyhemoglobin Carboxyhemoglobin Sodium Potassium Chloride Carbon Dioxide BUN Creatinine Glucose POC Glucose 234 H 123 H 231 H Hemoglobin A1c Magnesium Ferritin AST ALT Alkaline Phosphatase Lactate Dehydrogenase C-Reactive Protein Total Protein Albumin Arterial Blood Glucose Coronavirus (PCR) 05/16/21 05/16/21 05/17/21 18:23 21:29 06:20 WBC MCV MCH MCHC RDW 18.8 H Lymph % (Auto) 10.2 L [place] % (Auto) Eos % (Auto) Lymph # (Auto) 0.8 L [place] # (Auto) Eos # (Auto) Baso # (Auto) Seg Neutrophils % 85.8 H Seg Neuts % (Manual) Lymphocytes % (Manual) Seg Neutrophils # Seg Neutrophils # Man Lymphocytes # (Manual) D-Dimer ABG pH POC ABG pCO2 POC ABG pO2 ABG pO2 ABG HCO3 ABG O2 Saturation ABG Base Excess ABG Oxyhemoglobin ABG Sodium ABG Chloride ABG Glucose Oxyhemoglobin Carboxyhemoglobin Sodium Potassium Chloride Carbon Dioxide BUN Creatinine Glucose POC Glucose 266 H 234 H Hemoglobin A1c Magnesium Ferritin AST ALT Alkaline Phosphatase Lactate Dehydrogenase C-Reactive Protein Total Protein Albumin Arterial Blood Glucose Coronavirus (PCR) 05/17/21 05/17/21 05/17/21 06:20 11:06 16:36 WBC MCV MCH MCHC RDW Lymph % (Auto) [place] % (Auto) Eos % (Auto) Lymph # (Auto) [place] # (Auto) Eos # (Auto) Baso # (Auto) Seg Neutrophils % Seg Neuts % (Manual) Lymphocytes % (Manual) Seg Neutrophils # Seg Neutrophils # Man Lymphocytes # (Manual) D-Dimer ABG pH POC ABG pCO2 POC ABG pO2 ABG pO2 ABG HCO3 ABG O2 Saturation ABG Base Excess ABG Oxyhemoglobin ABG Sodium ABG Chloride ABG Glucose Oxyhemoglobin Carboxyhemoglobin Sodium Potassium Chloride Carbon Dioxide 33 H BUN Creatinine 0.2 L Glucose 101 H POC Glucose 209 H 180 H Hemoglobin A1c Magnesium Ferritin AST ALT Alkaline Phosphatase Lactate Dehydrogenase C-Reactive Protein Total Protein Albumin Arterial Blood Glucose Coronavirus (PCR) 05/17/21 05/18/21 05/18/21 21:06 12:00 15:06 WBC MCV MCH MCHC RDW Lymph % (Auto) [place] % (Auto) Eos % (Auto) Lymph # (Auto) [place] # (Auto) Eos # (Auto) Baso # (Auto) Seg Neutrophils % Seg Neuts % (Manual) Lymphocytes % (Manual) Seg Neutrophils # Seg Neutrophils # Man Lymphocytes # (Manual) D-Dimer 874.02 H ABG pH POC ABG pCO2 POC ABG pO2 ABG pO2 ABG HCO3 ABG O2 Saturation ABG Base Excess ABG Oxyhemoglobin ABG Sodium ABG Chloride ABG Glucose Oxyhemoglobin Carboxyhemoglobin Sodium Potassium Chloride Carbon Dioxide BUN Creatinine Glucose POC Glucose 256 H 139 H Hemoglobin A1c Magnesium Ferritin AST ALT Alkaline Phosphatase Lactate Dehydrogenase C-Reactive Protein Total Protein Albumin Arterial Blood Glucose Coronavirus (PCR) 05/18/21 05/18/21 05/18/21 15:06 15:06 16:08 WBC MCV MCH MCHC RDW Lymph % (Auto) [place] % (Auto) Eos % (Auto) Lymph # (Auto) [place] # (Auto) Eos # (Auto) Baso # (Auto) Seg Neutrophils % Seg Neuts % (Manual) Lymphocytes % (Manual) Seg Neutrophils # Seg Neutrophils # Man Lymphocytes # (Manual) D-Dimer ABG pH POC ABG pCO2 POC ABG pO2 ABG pO2 ABG HCO3 ABG O2 Saturation ABG Base Excess ABG Oxyhemoglobin ABG Sodium ABG Chloride ABG Glucose Oxyhemoglobin Carboxyhemoglobin Sodium Potassium Chloride Carbon Dioxide BUN Creatinine Glucose POC Glucose 178 H Hemoglobin A1c Magnesium Ferritin 289.6 H AST ALT Alkaline Phosphatase Lactate Dehydrogenase 605 H C-Reactive Protein Total Protein Albumin Arterial Blood Glucose Coronavirus (PCR) 05/18/21 05/19/21 05/19/21 21:22 11:57 15:26 WBC MCV MCH MCHC RDW Lymph % (Auto) [place] % (Auto) Eos % (Auto) Lymph # (Auto) [place] # (Auto) Eos # (Auto) Baso # (Auto) Seg Neutrophils % Seg Neuts % (Manual) Lymphocytes % (Manual) Seg Neutrophils # Seg Neutrophils # Man Lymphocytes # (Manual) D-Dimer ABG pH POC ABG pCO2 POC ABG pO2 ABG pO2 ABG HCO3 ABG O2 Saturation ABG Base Excess ABG Oxyhemoglobin ABG Sodium ABG Chloride ABG Glucose Oxyhemoglobin Carboxyhemoglobin Sodium Potassium Chloride Carbon Dioxide BUN Creatinine Glucose POC Glucose 241 H 201 H 209 H Hemoglobin A1c Magnesium Ferritin AST ALT Alkaline Phosphatase Lactate Dehydrogenase C-Reactive Protein Total Protein Albumin Arterial Blood Glucose Coronavirus (PCR) 05/19/21 05/20/21 05/20/21 20:59 07:38 08:01 WBC MCV MCH MCHC RDW 19.7 H Lymph % (Auto) 8.3 L [place] % (Auto) Eos % (Auto) Lymph # (Auto) 0.8 L [place] # (Auto) Eos # (Auto) Baso # (Auto) Seg Neutrophils % 88.6 H Seg Neuts % (Manual) Lymphocytes % (Manual) Seg Neutrophils # 8.4 H Seg Neutrophils # Man Lymphocytes # (Manual) D-Dimer ABG pH POC ABG pCO2 POC ABG pO2 ABG pO2 ABG HCO3 ABG O2 Saturation ABG Base Excess ABG Oxyhemoglobin ABG Sodium ABG Chloride ABG Glucose Oxyhemoglobin Carboxyhemoglobin Sodium Potassium Chloride Carbon Dioxide BUN Creatinine Glucose POC Glucose 226 H 130 H Hemoglobin A1c Magnesium Ferritin AST ALT Alkaline Phosphatase Lactate Dehydrogenase C-Reactive Protein Total Protein Albumin Arterial Blood Glucose Coronavirus (PCR) 05/20/21 05/20/21 05/20/21 08:01 11:00 16:43 WBC MCV MCH MCHC RDW Lymph % (Auto) [place] % (Auto) Eos % (Auto) Lymph # (Auto) [place] # (Auto) Eos # (Auto) Baso # (Auto) Seg Neutrophils % Seg Neuts % (Manual) Lymphocytes % (Manual) Seg Neutrophils # Seg Neutrophils # Man Lymphocytes # (Manual) D-Dimer ABG pH POC ABG pCO2 POC ABG pO2 ABG pO2 ABG HCO3 ABG O2 Saturation ABG Base Excess ABG Oxyhemoglobin ABG Sodium ABG Chloride ABG Glucose Oxyhemoglobin Carboxyhemoglobin Sodium Potassium Chloride Carbon Dioxide BUN 18 H Creatinine 0.2 L Glucose 132 H POC Glucose 237 H 240 H Hemoglobin A1c Magnesium Ferritin AST ALT Alkaline Phosphatase Lactate Dehydrogenase C-Reactive Protein Total Protein Albumin Arterial Blood Glucose Coronavirus (PCR) 05/20/21 05/21/21 05/21/21 21:21 07:35 11:32 WBC MCV MCH MCHC RDW Lymph % (Auto) [place] % (Auto) Eos % (Auto) Lymph # (Auto) [place] # (Auto) Eos # (Auto) Baso # (Auto) Seg Neutrophils % Seg Neuts % (Manual) Lymphocytes % (Manual) Seg Neutrophils # Seg Neutrophils # Man Lymphocytes # (Manual) D-Dimer ABG pH POC ABG pCO2 POC ABG pO2 ABG pO2 ABG HCO3 ABG O2 Saturation ABG Base Excess ABG Oxyhemoglobin ABG Sodium ABG Chloride ABG Glucose Oxyhemoglobin Carboxyhemoglobin Sodium Potassium Chloride Carbon Dioxide BUN Creatinine Glucose POC Glucose 241 H 162 H 171 H Hemoglobin A1c Magnesium Ferritin AST ALT Alkaline Phosphatase Lactate Dehydrogenase C-Reactive Protein Total Protein Albumin Arterial Blood Glucose Coronavirus (PCR) 05/21/21 05/21/21 05/22/21 16:22 20:43 05:14 WBC MCV MCH MCHC RDW Lymph % (Auto) [place] % (Auto) Eos % (Auto) Lymph # (Auto) [place] # (Auto) Eos # (Auto) Baso # (Auto) Seg Neutrophils % Seg Neuts % (Manual) Lymphocytes % (Manual) Seg Neutrophils # Seg Neutrophils # Man Lymphocytes # (Manual) D-Dimer ABG pH POC ABG pCO2 POC ABG pO2 ABG pO2 ABG HCO3 ABG O2 Saturation ABG Base Excess ABG Oxyhemoglobin ABG Sodium ABG Chloride ABG Glucose Oxyhemoglobin Carboxyhemoglobin Sodium Potassium Chloride Carbon Dioxide BUN Creatinine Glucose POC Glucose 244 H 299 H 140 H Hemoglobin A1c Magnesium Ferritin AST ALT Alkaline Phosphatase Lactate Dehydrogenase C-Reactive Protein Total Protein Albumin Arterial Blood Glucose Coronavirus (PCR) 05/22/21 05/22/21 05/22/21 08:45 11:54 16:15 WBC MCV MCH MCHC RDW Lymph % (Auto) [place] % (Auto) Eos % (Auto) Lymph # (Auto) [place] # (Auto) Eos # (Auto) Baso # (Auto) Seg Neutrophils % Seg Neuts % (Manual) Lymphocytes % (Manual) Seg Neutrophils # Seg Neutrophils # Man Lymphocytes # (Manual) D-Dimer ABG pH POC ABG pCO2 POC ABG pO2 ABG pO2 ABG HCO3 ABG O2 Saturation ABG Base Excess ABG Oxyhemoglobin ABG Sodium ABG Chloride ABG Glucose Oxyhemoglobin Carboxyhemoglobin Sodium Potassium Chloride Carbon Dioxide BUN Creatinine Glucose POC Glucose 133 H 265 H 221 H Hemoglobin A1c Magnesium Ferritin AST ALT Alkaline Phosphatase Lactate Dehydrogenase C-Reactive Protein Total Protein Albumin Arterial Blood Glucose Coronavirus (PCR) 05/22/21 05/23/21 05/23/21 21:43 08:20 09:50 WBC MCV MCH MCHC RDW Lymph % (Auto) [place] % (Auto) Eos % (Auto) Lymph # (Auto) [place] # (Auto) Eos # (Auto) Baso # (Auto) Seg Neutrophils % Seg Neuts % (Manual) Lymphocytes % (Manual) Seg Neutrophils # Seg Neutrophils # Man Lymphocytes # (Manual) D-Dimer 910.38 H ABG pH POC ABG pCO2 POC ABG pO2 ABG pO2 ABG HCO3 ABG O2 Saturation ABG Base Excess ABG Oxyhemoglobin ABG Sodium ABG Chloride ABG Glucose Oxyhemoglobin Carboxyhemoglobin Sodium Potassium Chloride Carbon Dioxide BUN Creatinine Glucose POC Glucose 262 H 140 H Hemoglobin A1c Magnesium Ferritin AST ALT Alkaline Phosphatase Lactate Dehydrogenase C-Reactive Protein Total Protein Albumin Arterial Blood Glucose Coronavirus (PCR) 05/23/21 05/23/21 05/23/21 09:50 09:50 10:52 WBC MCV MCH MCHC RDW Lymph % (Auto) [place] % (Auto) Eos % (Auto) Lymph # (Auto) [place] # (Auto) Eos # (Auto) Baso # (Auto) Seg Neutrophils % Seg Neuts % (Manual) Lymphocytes % (Manual) Seg Neutrophils # Seg Neutrophils # Man Lymphocytes # (Manual) D-Dimer ABG pH POC ABG pCO2 POC ABG pO2 ABG pO2 ABG HCO3 ABG O2 Saturation ABG Base Excess ABG Oxyhemoglobin ABG Sodium ABG Chloride ABG Glucose Oxyhemoglobin Carboxyhemoglobin Sodium Potassium Chloride Carbon Dioxide BUN Creatinine Glucose POC Glucose 241 H Hemoglobin A1c Magnesium Ferritin 244.9 H AST ALT Alkaline Phosphatase Lactate Dehydrogenase 584 H C-Reactive Protein Total Protein Albumin Arterial Blood Glucose Coronavirus (PCR) 05/23/21 05/23/21 05/24/21 17:24 21:52 07:44 WBC MCV MCH MCHC RDW Lymph % (Auto) [place] % (Auto) Eos % (Auto) Lymph # (Auto) [place] # (Auto) Eos # (Auto) Baso # (Auto) Seg Neutrophils % Seg Neuts % (Manual) Lymphocytes % (Manual) Seg Neutrophils # Seg Neutrophils # Man Lymphocytes # (Manual) D-Dimer ABG pH POC ABG pCO2 POC ABG pO2 ABG pO2 ABG HCO3 ABG O2 Saturation ABG Base Excess ABG Oxyhemoglobin ABG Sodium ABG Chloride ABG Glucose Oxyhemoglobin Carboxyhemoglobin Sodium Potassium Chloride Carbon Dioxide BUN Creatinine Glucose POC Glucose 197 H 289 H 161 H Hemoglobin A1c Magnesium Ferritin AST ALT Alkaline Phosphatase Lactate Dehydrogenase C-Reactive Protein Total Protein Albumin Arterial Blood Glucose Coronavirus (PCR) 05/24/21 05/24/21 05/24/21 11:17 17:51 21:26 WBC MCV MCH MCHC RDW Lymph % (Auto) [place] % (Auto) Eos % (Auto) Lymph # (Auto) [place] # (Auto) Eos # (Auto) Baso # (Auto) Seg Neutrophils % Seg Neuts % (Manual) Lymphocytes % (Manual) Seg Neutrophils # Seg Neutrophils # Man Lymphocytes # (Manual) D-Dimer ABG pH POC ABG pCO2 POC ABG pO2 ABG pO2 ABG HCO3 ABG O2 Saturation ABG Base Excess ABG Oxyhemoglobin ABG Sodium ABG Chloride ABG Glucose Oxyhemoglobin Carboxyhemoglobin Sodium Potassium Chloride Carbon Dioxide BUN Creatinine Glucose POC Glucose 308 H 175 H 198 H Hemoglobin A1c Magnesium Ferritin AST ALT Alkaline Phosphatase Lactate Dehydrogenase C-Reactive Protein Total Protein Albumin Arterial Blood Glucose Coronavirus (PCR) 05/25/21 05/25/21 05/25/21 08:14 11:13 17:13 WBC MCV MCH MCHC RDW Lymph % (Auto) [place] % (Auto) Eos % (Auto) Lymph # (Auto) [place] # (Auto) Eos # (Auto) Baso # (Auto) Seg Neutrophils % Seg Neuts % (Manual) Lymphocytes % (Manual) Seg Neutrophils # Seg Neutrophils # Man Lymphocytes # (Manual) D-Dimer ABG pH POC ABG pCO2 POC ABG pO2 ABG pO2 ABG HCO3 ABG O2 Saturation ABG Base Excess ABG Oxyhemoglobin ABG Sodium ABG Chloride ABG Glucose Oxyhemoglobin Carboxyhemoglobin Sodium Potassium Chloride Carbon Dioxide BUN Creatinine Glucose POC Glucose 203 H 339 H 235 H Hemoglobin A1c Magnesium Ferritin AST ALT Alkaline Phosphatase Lactate Dehydrogenase C-Reactive Protein Total Protein Albumin Arterial Blood Glucose Coronavirus (PCR) 05/25/21 05/26/21 05/26/21 21:03 07:33 11:19 WBC MCV MCH MCHC RDW Lymph % (Auto) [place] % (Auto) Eos % (Auto) Lymph # (Auto) [place] # (Auto) Eos # (Auto) Baso # (Auto) Seg Neutrophils % Seg Neuts % (Manual) Lymphocytes % (Manual) Seg Neutrophils # Seg Neutrophils # Man Lymphocytes # (Manual) D-Dimer ABG pH POC ABG pCO2 POC ABG pO2 ABG pO2 ABG HCO3 ABG O2 Saturation ABG Base Excess ABG Oxyhemoglobin ABG Sodium ABG Chloride ABG Glucose Oxyhemoglobin Carboxyhemoglobin Sodium Potassium Chloride Carbon Dioxide BUN Creatinine Glucose POC Glucose 263 H 156 H 288 H Hemoglobin A1c Magnesium Ferritin AST ALT Alkaline Phosphatase Lactate Dehydrogenase C-Reactive Protein Total Protein Albumin Arterial Blood Glucose Coronavirus (PCR) 05/26/21 05/26/21 05/27/21 16:26 20:55 07:38 WBC MCV MCH MCHC RDW Lymph % (Auto) [place] % (Auto) Eos % (Auto) Lymph # (Auto) [place] # (Auto) Eos # (Auto) Baso # (Auto) Seg Neutrophils % Seg Neuts % (Manual) Lymphocytes % (Manual) Seg Neutrophils # Seg Neutrophils # Man Lymphocytes # (Manual) D-Dimer ABG pH POC ABG pCO2 POC ABG pO2 ABG pO2 ABG HCO3 ABG O2 Saturation ABG Base Excess ABG Oxyhemoglobin ABG Sodium ABG Chloride ABG Glucose Oxyhemoglobin Carboxyhemoglobin Sodium Potassium Chloride Carbon Dioxide BUN Creatinine Glucose POC Glucose 286 H 293 H 115 H Hemoglobin A1c Magnesium Ferritin AST ALT Alkaline Phosphatase Lactate Dehydrogenase C-Reactive Protein Total Protein Albumin Arterial Blood Glucose Coronavirus (PCR) 05/27/21 05/27/21 05/27/21 11:46 15:58 21:02 WBC MCV MCH MCHC RDW Lymph % (Auto) [place] % (Auto) Eos % (Auto) Lymph # (Auto) [place] # (Auto) Eos # (Auto) Baso # (Auto) Seg Neutrophils % Seg Neuts % (Manual) Lymphocytes % (Manual) Seg Neutrophils # Seg Neutrophils # Man Lymphocytes # (Manual) D-Dimer ABG pH POC ABG pCO2 POC ABG pO2 ABG pO2 ABG HCO3 ABG O2 Saturation ABG Base Excess ABG Oxyhemoglobin ABG Sodium ABG Chloride ABG Glucose Oxyhemoglobin Carboxyhemoglobin Sodium Potassium Chloride Carbon Dioxide BUN Creatinine Glucose POC Glucose 260 H 318 H 246 H Hemoglobin A1c Magnesium Ferritin AST ALT Alkaline Phosphatase Lactate Dehydrogenase C-Reactive Protein Total Protein Albumin Arterial Blood Glucose Coronavirus (PCR) 05/28/21 05/28/21 05/28/21 07:34 11:31 16:36 WBC MCV MCH MCHC RDW Lymph % (Auto) [place] % (Auto) Eos % (Auto) Lymph # (Auto) [place] # (Auto) Eos # (Auto) Baso # (Auto) Seg Neutrophils % Seg Neuts % (Manual) Lymphocytes % (Manual) Seg Neutrophils # Seg Neutrophils # Man Lymphocytes # (Manual) D-Dimer ABG pH POC ABG pCO2 POC ABG pO2 ABG pO2 ABG HCO3 ABG O2 Saturation ABG Base Excess ABG Oxyhemoglobin ABG Sodium ABG Chloride ABG Glucose Oxyhemoglobin Carboxyhemoglobin Sodium Potassium Chloride Carbon Dioxide BUN Creatinine Glucose POC Glucose 185 H 297 H 183 H Hemoglobin A1c Magnesium Ferritin AST ALT Alkaline Phosphatase Lactate Dehydrogenase C-Reactive Protein Total Protein Albumin Arterial Blood Glucose Coronavirus (PCR) 05/28/21 05/29/21 05/29/21 21:19 07:34 11:19 WBC MCV MCH MCHC RDW Lymph % (Auto) [place] % (Auto) Eos % (Auto) Lymph # (Auto) [place] # (Auto) Eos # (Auto) Baso # (Auto) Seg Neutrophils % Seg Neuts % (Manual) Lymphocytes % (Manual) Seg Neutrophils # Seg Neutrophils # Man Lymphocytes # (Manual) D-Dimer ABG pH POC ABG pCO2 POC ABG pO2 ABG pO2 ABG HCO3 ABG O2 Saturation ABG Base Excess ABG Oxyhemoglobin ABG Sodium ABG Chloride ABG Glucose Oxyhemoglobin Carboxyhemoglobin Sodium Potassium Chloride Carbon Dioxide BUN Creatinine Glucose POC Glucose 274 H 139 H 293 H Hemoglobin A1c Magnesium Ferritin AST ALT Alkaline Phosphatase Lactate Dehydrogenase C-Reactive Protein Total Protein Albumin Arterial Blood Glucose Coronavirus (PCR) 05/29/21 05/29/21 05/30/21 16:36 22:44 05:55 WBC MCV MCH MCHC RDW 21.3 H Lymph % (Auto) 8.0 L [place] % (Auto) Eos % (Auto) Lymph # (Auto) 0.6 L [place] # (Auto) Eos # (Auto) Baso # (Auto) Seg Neutrophils % 88.6 H Seg Neuts % (Manual) Lymphocytes % (Manual) Seg Neutrophils # Seg Neutrophils # Man Lymphocytes # (Manual) D-Dimer ABG pH POC ABG pCO2 POC ABG pO2 ABG pO2 ABG HCO3 ABG O2 Saturation ABG Base Excess ABG Oxyhemoglobin ABG Sodium ABG Chloride ABG Glucose Oxyhemoglobin Carboxyhemoglobin Sodium Potassium Chloride Carbon Dioxide BUN Creatinine Glucose POC Glucose 299 H 160 H Hemoglobin A1c Magnesium Ferritin AST ALT Alkaline Phosphatase Lactate Dehydrogenase C-Reactive Protein Total Protein Albumin Arterial Blood Glucose Coronavirus (PCR) 05/30/21 05/30/21 05/30/21 05:55 08:04 11:13 WBC MCV MCH MCHC RDW Lymph % (Auto) [place] % (Auto) Eos % (Auto) Lymph # (Auto) [place] # (Auto) Eos # (Auto) Baso # (Auto) Seg Neutrophils % Seg Neuts % (Manual) Lymphocytes % (Manual) Seg Neutrophils # Seg Neutrophils # Man Lymphocytes # (Manual) D-Dimer ABG pH POC ABG pCO2 POC ABG pO2 ABG pO2 ABG HCO3 ABG O2 Saturation ABG Base Excess ABG Oxyhemoglobin ABG Sodium ABG Chloride ABG Glucose Oxyhemoglobin Carboxyhemoglobin Sodium Potassium Chloride Carbon Dioxide BUN 19 H Creatinine 0.2 L Glucose 209 H POC Glucose 157 H 275 H Hemoglobin A1c Magnesium Ferritin AST ALT Alkaline Phosphatase Lactate Dehydrogenase C-Reactive Protein Total Protein Albumin Arterial Blood Glucose Coronavirus (PCR) 05/30/21 05/30/21 05/31/21 17:08 22:12 07:36 WBC MCV MCH MCHC RDW Lymph % (Auto) [place] % (Auto) Eos % (Auto) Lymph # (Auto) [place] # (Auto) Eos # (Auto) Baso # (Auto) Seg Neutrophils % Seg Neuts % (Manual) Lymphocytes % (Manual) Seg Neutrophils # Seg Neutrophils # Man Lymphocytes # (Manual) D-Dimer ABG pH POC ABG pCO2 POC ABG pO2 ABG pO2 ABG HCO3 ABG O2 Saturation ABG Base Excess ABG Oxyhemoglobin ABG Sodium ABG Chloride ABG Glucose Oxyhemoglobin Carboxyhemoglobin Sodium Potassium Chloride Carbon Dioxide BUN Creatinine Glucose POC Glucose 154 H 275 H 138 H Hemoglobin A1c Magnesium Ferritin AST ALT Alkaline Phosphatase Lactate Dehydrogenase C-Reactive Protein Total Protein Albumin Arterial Blood Glucose Coronavirus (PCR) 05/31/21 05/31/21 05/31/21 11:17 16:55 21:25 WBC MCV MCH MCHC RDW Lymph % (Auto) [place] % (Auto) Eos % (Auto) Lymph # (Auto) [place] # (Auto) Eos # (Auto) Baso # (Auto) Seg Neutrophils % Seg Neuts % (Manual) Lymphocytes % (Manual) Seg Neutrophils # Seg Neutrophils # Man Lymphocytes # (Manual) D-Dimer ABG pH POC ABG pCO2 POC ABG pO2 ABG pO2 ABG HCO3 ABG O2 Saturation ABG Base Excess ABG Oxyhemoglobin ABG Sodium ABG Chloride ABG Glucose Oxyhemoglobin Carboxyhemoglobin Sodium Potassium Chloride Carbon Dioxide BUN Creatinine Glucose POC Glucose 258 H 215 H 318 H Hemoglobin A1c Magnesium Ferritin AST ALT Alkaline Phosphatase Lactate Dehydrogenase C-Reactive Protein Total Protein Albumin Arterial Blood Glucose Coronavirus (PCR) 06/01/21 06/01/21 06/01/21 07:23 11:38 16:52 WBC MCV MCH MCHC RDW Lymph % (Auto) [place] % (Auto) Eos % (Auto) Lymph # (Auto) [place] # (Auto) Eos # (Auto) Baso # (Auto) Seg Neutrophils % Seg Neuts % (Manual) Lymphocytes % (Manual) Seg Neutrophils # Seg Neutrophils # Man Lymphocytes # (Manual) D-Dimer ABG pH POC ABG pCO2 POC ABG pO2 ABG pO2 ABG HCO3 ABG O2 Saturation ABG Base Excess ABG Oxyhemoglobin ABG Sodium ABG Chloride ABG Glucose Oxyhemoglobin Carboxyhemoglobin Sodium Potassium Chloride Carbon Dioxide BUN Creatinine Glucose POC Glucose 157 H 259 H 150 H Hemoglobin A1c Magnesium Ferritin AST ALT Alkaline Phosphatase Lactate Dehydrogenase C-Reactive Protein Total Protein Albumin Arterial Blood Glucose Coronavirus (PCR) 06/01/21 06/02/21 06/02/21 23:16 05:34 05:34 WBC MCV MCH MCHC RDW 21.3 H Lymph % (Auto) 9.6 L [place] % (Auto) Eos % (Auto) Lymph # (Auto) 0.6 L [place] # (Auto) Eos # (Auto) Baso # (Auto) Seg Neutrophils % 86.2 H Seg Neuts % (Manual) Lymphocytes % (Manual) Seg Neutrophils # Seg Neutrophils # Man Lymphocytes # (Manual) D-Dimer ABG pH POC ABG pCO2 POC ABG pO2 ABG pO2 ABG HCO3 ABG O2 Saturation ABG Base Excess ABG Oxyhemoglobin ABG Sodium ABG Chloride ABG Glucose Oxyhemoglobin Carboxyhemoglobin Sodium 136 L Potassium Chloride Carbon Dioxide BUN Creatinine 0.2 L Glucose 186 H POC Glucose 247 H Hemoglobin A1c Magnesium Ferritin AST ALT 69 H Alkaline Phosphatase Lactate Dehydrogenase C-Reactive Protein Total Protein 6.1 L Albumin 3.2 L Arterial Blood Glucose Coronavirus (PCR) 06/02/21 06/02/21 06/02/21 11:25 18:23 21:32 WBC MCV MCH MCHC RDW Lymph % (Auto) [place] % (Auto) Eos % (Auto) Lymph # (Auto) [place] # (Auto) Eos # (Auto) Baso # (Auto) Seg Neutrophils % Seg Neuts % (Manual) Lymphocytes % (Manual) Seg Neutrophils # Seg Neutrophils # Man Lymphocytes # (Manual) D-Dimer ABG pH POC ABG pCO2 POC ABG pO2 ABG pO2 ABG HCO3 ABG O2 Saturation ABG Base Excess ABG Oxyhemoglobin ABG Sodium ABG Chloride ABG Glucose Oxyhemoglobin Carboxyhemoglobin Sodium Potassium Chloride Carbon Dioxide BUN Creatinine Glucose POC Glucose 157 H 299 H 246 H Hemoglobin A1c Magnesium Ferritin AST ALT Alkaline Phosphatase Lactate Dehydrogenase C-Reactive Protein Total Protein Albumin Arterial Blood Glucose Coronavirus (PCR) 06/03/21 06/03/21 06/03/21 08:12 12:21 17:31 WBC MCV MCH MCHC RDW Lymph % (Auto) [place] % (Auto) Eos % (Auto) Lymph # (Auto) [place] # (Auto) Eos # (Auto) Baso # (Auto) Seg Neutrophils % Seg Neuts % (Manual) Lymphocytes % (Manual) Seg Neutrophils # Seg Neutrophils # Man Lymphocytes # (Manual) D-Dimer ABG pH POC ABG pCO2 POC ABG pO2 ABG pO2 ABG HCO3 ABG O2 Saturation ABG Base Excess ABG Oxyhemoglobin ABG Sodium ABG Chloride ABG Glucose Oxyhemoglobin Carboxyhemoglobin Sodium Potassium Chloride Carbon Dioxide BUN Creatinine Glucose POC Glucose 153 H 302 H 252 H Hemoglobin A1c Magnesium Ferritin AST ALT Alkaline Phosphatase Lactate Dehydrogenase C-Reactive Protein Total Protein Albumin Arterial Blood Glucose Coronavirus (PCR) 06/03/21 06/04/21 06/04/21 22:08 11:12 16:01 WBC MCV MCH MCHC RDW Lymph % (Auto) [place] % (Auto) Eos % (Auto) Lymph # (Auto) [place] # (Auto) Eos # (Auto) Baso # (Auto) Seg Neutrophils % Seg Neuts % (Manual) Lymphocytes % (Manual) Seg Neutrophils # Seg Neutrophils # Man Lymphocytes # (Manual) D-Dimer ABG pH POC ABG pCO2 POC ABG pO2 ABG pO2 ABG HCO3 ABG O2 Saturation ABG Base Excess ABG Oxyhemoglobin ABG Sodium ABG Chloride ABG Glucose Oxyhemoglobin Carboxyhemoglobin Sodium Potassium Chloride Carbon Dioxide BUN Creatinine Glucose POC Glucose 224 H 259 H 238 H Hemoglobin A1c Magnesium Ferritin AST ALT Alkaline Phosphatase Lactate Dehydrogenase C-Reactive Protein Total Protein Albumin Arterial Blood Glucose Coronavirus (PCR) 06/04/21 06/05/21 06/05/21 21:26 05:26 05:26 WBC MCV MCH MCHC RDW Lymph % (Auto) [place] % (Auto) Eos % (Auto) Lymph # (Auto) [place] # (Auto) Eos # (Auto) Baso # (Auto) Seg Neutrophils % Seg Neuts % (Manual) Lymphocytes % (Manual) Seg Neutrophils # Seg Neutrophils # Man Lymphocytes # (Manual) D-Dimer 488.49 H ABG pH POC ABG pCO2 POC ABG pO2 ABG pO2 ABG HCO3 ABG O2 Saturation ABG Base Excess ABG Oxyhemoglobin ABG Sodium ABG Chloride ABG Glucose Oxyhemoglobin Carboxyhemoglobin Sodium Potassium Chloride Carbon Dioxide BUN Creatinine 0.2 L Glucose 198 H POC Glucose 257 H Hemoglobin A1c Magnesium Ferritin AST ALT Alkaline Phosphatase Lactate Dehydrogenase 475 H C-Reactive Protein Total Protein Albumin Arterial Blood Glucose Coronavirus (PCR) 06/05/21 06/05/21 06/05/21 07:20 08:30 11:00 WBC MCV MCH MCHC RDW Lymph % (Auto) [place] % (Auto) Eos % (Auto) Lymph # (Auto) [place] # (Auto) Eos # (Auto) Baso # (Auto) Seg Neutrophils % Seg Neuts % (Manual) Lymphocytes % (Manual) Seg Neutrophils # Seg Neutrophils # Man Lymphocytes # (Manual) D-Dimer ABG pH POC ABG pCO2 POC ABG pO2 ABG pO2 ABG HCO3 ABG O2 Saturation ABG Base Excess ABG Oxyhemoglobin ABG Sodium ABG Chloride ABG Glucose Oxyhemoglobin Carboxyhemoglobin Sodium Potassium Chloride Carbon Dioxide BUN Creatinine Glucose POC Glucose 146 H 246 H Hemoglobin A1c Magnesium Ferritin AST ALT Alkaline Phosphatase Lactate Dehydrogenase C-Reactive Protein Total Protein Albumin Arterial Blood Glucose Coronavirus (PCR) Positive A 06/05/21 06/05/21 06/06/21 16:50 22:30 07:57 WBC MCV MCH MCHC RDW Lymph % (Auto) [place] % (Auto) Eos % (Auto) Lymph # (Auto) [place] # (Auto) Eos # (Auto) Baso # (Auto) Seg Neutrophils % Seg Neuts % (Manual) Lymphocytes % (Manual) Seg Neutrophils # Seg Neutrophils # Man Lymphocytes # (Manual) D-Dimer ABG pH POC ABG pCO2 POC ABG pO2 ABG pO2 ABG HCO3 ABG O2 Saturation ABG Base Excess ABG Oxyhemoglobin ABG Sodium ABG Chloride ABG Glucose Oxyhemoglobin Carboxyhemoglobin Sodium Potassium Chloride Carbon Dioxide BUN Creatinine Glucose POC Glucose 240 H 174 H 120 H Hemoglobin A1c Magnesium Ferritin AST ALT Alkaline Phosphatase Lactate Dehydrogenase C-Reactive Protein Total Protein Albumin Arterial Blood Glucose Coronavirus (PCR) 06/06/21 06/06/21 06/06/21 11:14 16:50 21:11 WBC MCV MCH MCHC RDW Lymph % (Auto) [place] % (Auto) Eos % (Auto) Lymph # (Auto) [place] # (Auto) Eos # (Auto) Baso # (Auto) Seg Neutrophils % Seg Neuts % (Manual) Lymphocytes % (Manual) Seg Neutrophils # Seg Neutrophils # Man Lymphocytes # (Manual) D-Dimer ABG pH POC ABG pCO2 POC ABG pO2 ABG pO2 ABG HCO3 ABG O2 Saturation ABG Base Excess ABG Oxyhemoglobin ABG Sodium ABG Chloride ABG Glucose Oxyhemoglobin Carboxyhemoglobin Sodium Potassium Chloride Carbon Dioxide BUN Creatinine Glucose POC Glucose 267 H 218 H 124 H Hemoglobin A1c Magnesium Ferritin AST ALT Alkaline Phosphatase Lactate Dehydrogenase C-Reactive Protein Total Protein Albumin Arterial Blood Glucose Coronavirus (PCR) 06/07/21 06/07/21 06/08/21 11:58 15:59 07:59 WBC MCV MCH MCHC RDW Lymph % (Auto) [place] % (Auto) Eos % (Auto) Lymph # (Auto) [place] # (Auto) Eos # (Auto) Baso # (Auto) Seg Neutrophils % Seg Neuts % (Manual) Lymphocytes % (Manual) Seg Neutrophils # Seg Neutrophils # Man Lymphocytes # (Manual) D-Dimer ABG pH POC ABG pCO2 POC ABG pO2 ABG pO2 ABG HCO3 ABG O2 Saturation ABG Base Excess ABG Oxyhemoglobin ABG Sodium ABG Chloride ABG Glucose Oxyhemoglobin Carboxyhemoglobin Sodium Potassium Chloride Carbon Dioxide BUN Creatinine Glucose POC Glucose 219 H 208 H 192 H Hemoglobin A1c Magnesium Ferritin AST ALT Alkaline Phosphatase Lactate Dehydrogenase C-Reactive Protein Total Protein Albumin Arterial Blood Glucose Coronavirus (PCR) 06/08/21 06/08/21 06/09/21 11:26 23:28 07:33 WBC MCV MCH MCHC RDW Lymph % (Auto) [place] % (Auto) Eos % (Auto) Lymph # (Auto) [place] # (Auto) Eos # (Auto) Baso # (Auto) Seg Neutrophils % Seg Neuts % (Manual) Lymphocytes % (Manual) Seg Neutrophils # Seg Neutrophils # Man Lymphocytes # (Manual) D-Dimer ABG pH POC ABG pCO2 POC ABG pO2 ABG pO2 ABG HCO3 ABG O2 Saturation ABG Base Excess ABG Oxyhemoglobin ABG Sodium ABG Chloride ABG Glucose Oxyhemoglobin Carboxyhemoglobin Sodium Potassium Chloride Carbon Dioxide BUN Creatinine Glucose POC Glucose 307 H 138 H 145 H Hemoglobin A1c Magnesium Ferritin AST ALT Alkaline Phosphatase Lactate Dehydrogenase C-Reactive Protein Total Protein Albumin Arterial Blood Glucose Coronavirus (PCR) 06/09/21 06/09/21 06/09/21 11:01 15:47 21:43 WBC MCV MCH MCHC RDW Lymph % (Auto) [place] % (Auto) Eos % (Auto) Lymph # (Auto) [place] # (Auto) Eos # (Auto) Baso # (Auto) Seg Neutrophils % Seg Neuts % (Manual) Lymphocytes % (Manual) Seg Neutrophils # Seg Neutrophils # Man Lymphocytes # (Manual) D-Dimer ABG pH POC ABG pCO2 POC ABG pO2 ABG pO2 ABG HCO3 ABG O2 Saturation ABG Base Excess ABG Oxyhemoglobin ABG Sodium ABG Chloride ABG Glucose Oxyhemoglobin Carboxyhemoglobin Sodium Potassium Chloride Carbon Dioxide BUN Creatinine Glucose POC Glucose 266 H 305 H 223 H Hemoglobin A1c Magnesium Ferritin AST ALT Alkaline Phosphatase Lactate Dehydrogenase C-Reactive Protein Total Protein Albumin Arterial Blood Glucose Coronavirus (PCR) 06/10/21 06/10/21 06/10/21 08:27 12:10 17:45 WBC MCV MCH MCHC RDW Lymph % (Auto) [place] % (Auto) Eos % (Auto) Lymph # (Auto) [place] # (Auto) Eos # (Auto) Baso # (Auto) Seg Neutrophils % Seg Neuts % (Manual) Lymphocytes % (Manual) Seg Neutrophils # Seg Neutrophils # Man Lymphocytes # (Manual) D-Dimer ABG pH POC ABG pCO2 POC ABG pO2 ABG pO2 ABG HCO3 ABG O2 Saturation ABG Base Excess ABG Oxyhemoglobin ABG Sodium ABG Chloride ABG Glucose Oxyhemoglobin Carboxyhemoglobin Sodium Potassium Chloride Carbon Dioxide BUN Creatinine Glucose POC Glucose 174 H 306 H 210 H Hemoglobin A1c Magnesium Ferritin AST ALT Alkaline Phosphatase Lactate Dehydrogenase C-Reactive Protein Total Protein Albumin Arterial Blood Glucose Coronavirus (PCR) 06/10/21 06/11/21 06/11/21 21:45 09:38 09:38 WBC MCV MCH MCHC RDW 20.9 H Lymph % (Auto) [place] % (Auto) Eos % (Auto) Lymph # (Auto) [place] # (Auto) Eos # (Auto) Baso # (Auto) Seg Neutrophils % Seg Neuts % (Manual) Lymphocytes % (Manual) Seg Neutrophils # Seg Neutrophils # Man Lymphocytes # (Manual) D-Dimer ABG pH POC ABG pCO2 POC ABG pO2 ABG pO2 ABG HCO3 ABG O2 Saturation ABG Base Excess ABG Oxyhemoglobin ABG Sodium ABG Chloride ABG Glucose Oxyhemoglobin Carboxyhemoglobin Sodium 135 L Potassium Chloride 90.8 L Carbon Dioxide 36 H BUN 29 H Creatinine 0.2 L Glucose 258 H POC Glucose 262 H Hemoglobin A1c Magnesium Ferritin AST ALT Alkaline Phosphatase Lactate Dehydrogenase C-Reactive Protein Total Protein Albumin Arterial Blood Glucose Coronavirus (PCR) 06/11/21 06/11/21 06/11/21 11:20 15:49 22:57 WBC MCV MCH MCHC RDW Lymph % (Auto) [place] % (Auto) Eos % (Auto) Lymph # (Auto) [place] # (Auto) Eos # (Auto) Baso # (Auto) Seg Neutrophils % Seg Neuts % (Manual) Lymphocytes % (Manual) Seg Neutrophils # Seg Neutrophils # Man Lymphocytes # (Manual) D-Dimer ABG pH POC ABG pCO2 POC ABG pO2 ABG pO2 ABG HCO3 ABG O2 Saturation ABG Base Excess ABG Oxyhemoglobin ABG Sodium ABG Chloride ABG Glucose Oxyhemoglobin Carboxyhemoglobin Sodium Potassium Chloride Carbon Dioxide BUN Creatinine Glucose POC Glucose 269 H 206 H 211 H Hemoglobin A1c Magnesium Ferritin AST ALT Alkaline Phosphatase Lactate Dehydrogenase C-Reactive Protein Total Protein Albumin Arterial Blood Glucose Coronavirus (PCR) 06/12/21 06/12/21 06/12/21 08:07 11:24 18:08 WBC MCV MCH MCHC RDW Lymph % (Auto) [place] % (Auto) Eos % (Auto) Lymph # (Auto) [place] # (Auto) Eos # (Auto) Baso # (Auto) Seg Neutrophils % Seg Neuts % (Manual) Lymphocytes % (Manual) Seg Neutrophils # Seg Neutrophils # Man Lymphocytes # (Manual) D-Dimer ABG pH POC ABG pCO2 POC ABG pO2 ABG pO2 ABG HCO3 ABG O2 Saturation ABG Base Excess ABG Oxyhemoglobin ABG Sodium ABG Chloride ABG Glucose Oxyhemoglobin Carboxyhemoglobin Sodium Potassium Chloride Carbon Dioxide BUN Creatinine Glucose POC Glucose 149 H 270 H 166 H Hemoglobin A1c Magnesium Ferritin AST ALT Alkaline Phosphatase Lactate Dehydrogenase C-Reactive Protein Total Protein Albumin Arterial Blood Glucose Coronavirus (PCR) 06/12/21 06/13/21 06/13/21 20:22 07:50 11:18 WBC MCV MCH MCHC RDW Lymph % (Auto) [place] % (Auto) Eos % (Auto) Lymph # (Auto) [place] # (Auto) Eos # (Auto) Baso # (Auto) Seg Neutrophils % Seg Neuts % (Manual) Lymphocytes % (Manual) Seg Neutrophils # Seg Neutrophils # Man Lymphocytes # (Manual) D-Dimer ABG pH POC ABG pCO2 POC ABG pO2 ABG pO2 ABG HCO3 ABG O2 Saturation ABG Base Excess ABG Oxyhemoglobin ABG Sodium ABG Chloride ABG Glucose Oxyhemoglobin Carboxyhemoglobin Sodium Potassium Chloride Carbon Dioxide BUN Creatinine Glucose POC Glucose 155 H 163 H 293 H Hemoglobin A1c Magnesium Ferritin AST ALT Alkaline Phosphatase Lactate Dehydrogenase C-Reactive Protein Total Protein Albumin Arterial Blood Glucose Coronavirus (PCR) 06/13/21 06/13/21 06/14/21 16:41 21:00 07:41 WBC MCV MCH MCHC RDW Lymph % (Auto) [place] % (Auto) Eos % (Auto) Lymph # (Auto) [place] # (Auto) Eos # (Auto) Baso # (Auto) Seg Neutrophils % Seg Neuts % (Manual) Lymphocytes % (Manual) Seg Neutrophils # Seg Neutrophils # Man Lymphocytes # (Manual) D-Dimer ABG pH POC ABG pCO2 POC ABG pO2 ABG pO2 ABG HCO3 ABG O2 Saturation ABG Base Excess ABG Oxyhemoglobin ABG Sodium ABG Chloride ABG Glucose Oxyhemoglobin Carboxyhemoglobin Sodium Potassium Chloride Carbon Dioxide BUN Creatinine Glucose POC Glucose 232 H 183 H 52 L Hemoglobin A1c Magnesium Ferritin AST ALT Alkaline Phosphatase Lactate Dehydrogenase C-Reactive Protein Total Protein Albumin Arterial Blood Glucose Coronavirus (PCR) 06/14/21 06/14/21 06/14/21 11:44 17:44 21:44 WBC MCV MCH MCHC RDW Lymph % (Auto) [place] % (Auto) Eos % (Auto) Lymph # (Auto) [place] # (Auto) Eos # (Auto) Baso # (Auto) Seg Neutrophils % Seg Neuts % (Manual) Lymphocytes % (Manual) Seg Neutrophils # Seg Neutrophils # Man Lymphocytes # (Manual) D-Dimer ABG pH POC ABG pCO2 POC ABG pO2 ABG pO2 ABG HCO3 ABG O2 Saturation ABG Base Excess ABG Oxyhemoglobin ABG Sodium ABG Chloride ABG Glucose Oxyhemoglobin Carboxyhemoglobin Sodium Potassium Chloride Carbon Dioxide BUN Creatinine Glucose POC Glucose 205 H 293 H 288 H Hemoglobin A1c Magnesium Ferritin AST ALT Alkaline Phosphatase Lactate Dehydrogenase C-Reactive Protein Total Protein Albumin Arterial Blood Glucose Coronavirus (PCR) 06/15/21 06/15/21 06/15/21 08:00 08:00 11:40 WBC MCV MCH 33 H MCHC 35 H RDW 20.3 H Lymph % (Auto) [place] % (Auto) Eos % (Auto) Lymph # (Auto) [place] # (Auto) Eos # (Auto) Baso # (Auto) Seg Neutrophils % Seg Neuts % (Manual) Lymphocytes % (Manual) Seg Neutrophils # Seg Neutrophils # Man Lymphocytes # (Manual) D-Dimer ABG pH POC ABG pCO2 POC ABG pO2 ABG pO2 ABG HCO3 ABG O2 Saturation ABG Base Excess ABG Oxyhemoglobin ABG Sodium ABG Chloride ABG Glucose Oxyhemoglobin Carboxyhemoglobin Sodium Potassium 3.2 L Chloride 95.3 L Carbon Dioxide 32 H BUN 23 H Creatinine 0.2 L Glucose 103 H POC Glucose 204 H Hemoglobin A1c Magnesium Ferritin AST ALT Alkaline Phosphatase Lactate Dehydrogenase C-Reactive Protein Total Protein Albumin Arterial Blood Glucose Coronavirus (PCR) 06/15/21 06/15/21 06/16/21 16:17 22:00 11:43 WBC MCV MCH MCHC RDW Lymph % (Auto) [place] % (Auto) Eos % (Auto) Lymph # (Auto) [place] # (Auto) Eos # (Auto) Baso # (Auto) Seg Neutrophils % Seg Neuts % (Manual) Lymphocytes % (Manual) Seg Neutrophils # Seg Neutrophils # Man Lymphocytes # (Manual) D-Dimer ABG pH POC ABG pCO2 POC ABG pO2 ABG pO2 ABG HCO3 ABG O2 Saturation ABG Base Excess ABG Oxyhemoglobin ABG Sodium ABG Chloride ABG Glucose Oxyhemoglobin Carboxyhemoglobin Sodium Potassium Chloride Carbon Dioxide BUN Creatinine Glucose POC Glucose 295 H 233 H 201 H Hemoglobin A1c Magnesium Ferritin AST ALT Alkaline Phosphatase Lactate Dehydrogenase C-Reactive Protein Total Protein Albumin Arterial Blood Glucose Coronavirus (PCR) 06/16/21 06/16/21 06/17/21 17:21 21:27 07:12 WBC MCV MCH MCHC RDW Lymph % (Auto) [place] % (Auto) Eos % (Auto) Lymph # (Auto) [place] # (Auto) Eos # (Auto) Baso # (Auto) Seg Neutrophils % Seg Neuts % (Manual) Lymphocytes % (Manual) Seg Neutrophils # Seg Neutrophils # Man Lymphocytes # (Manual) D-Dimer ABG pH POC ABG pCO2 POC ABG pO2 ABG pO2 ABG HCO3 ABG O2 Saturation ABG Base Excess ABG Oxyhemoglobin ABG Sodium ABG Chloride ABG Glucose Oxyhemoglobin Carboxyhemoglobin Sodium Potassium Chloride Carbon Dioxide BUN Creatinine Glucose POC Glucose 299 H 290 H 67 L Hemoglobin A1c Magnesium Ferritin AST ALT Alkaline Phosphatase Lactate Dehydrogenase C-Reactive Protein Total Protein Albumin Arterial Blood Glucose Coronavirus (PCR) 06/17/21 06/17/21 06/17/21 11:53 17:02 22:25 WBC MCV MCH MCHC RDW Lymph % (Auto) [place] % (Auto) Eos % (Auto) Lymph # (Auto) [place] # (Auto) Eos # (Auto) Baso # (Auto) Seg Neutrophils % Seg Neuts % (Manual) Lymphocytes % (Manual) Seg Neutrophils # Seg Neutrophils # Man Lymphocytes # (Manual) D-Dimer ABG pH POC ABG pCO2 POC ABG pO2 ABG pO2 ABG HCO3 ABG O2 Saturation ABG Base Excess ABG Oxyhemoglobin ABG Sodium ABG Chloride ABG Glucose Oxyhemoglobin Carboxyhemoglobin Sodium Potassium Chloride Carbon Dioxide BUN Creatinine Glucose POC Glucose 199 H 362 H 235 H Hemoglobin A1c Magnesium Ferritin AST ALT Alkaline Phosphatase Lactate Dehydrogenase C-Reactive Protein Total Protein Albumin Arterial Blood Glucose Coronavirus (PCR) 06/18/21 06/18/21 06/18/21 08:00 11:48 16:40 WBC MCV MCH MCHC RDW Lymph % (Auto) [place] % (Auto) Eos % (Auto) Lymph # (Auto) [place] # (Auto) Eos # (Auto) Baso # (Auto) Seg Neutrophils % Seg Neuts % (Manual) Lymphocytes % (Manual) Seg Neutrophils # Seg Neutrophils # Man Lymphocytes # (Manual) D-Dimer ABG pH POC ABG pCO2 POC ABG pO2 ABG pO2 ABG HCO3 ABG O2 Saturation ABG Base Excess ABG Oxyhemoglobin ABG Sodium ABG Chloride ABG Glucose Oxyhemoglobin Carboxyhemoglobin Sodium Potassium Chloride Carbon Dioxide BUN Creatinine Glucose POC Glucose 62 L 211 H 305 H Hemoglobin A1c Magnesium Ferritin AST ALT Alkaline Phosphatase Lactate Dehydrogenase C-Reactive Protein Total Protein Albumin Arterial Blood Glucose Coronavirus (PCR) 06/18/21 06/19/21 06/19/21 21:26 07:27 11:32 WBC MCV MCH MCHC RDW Lymph % (Auto) [place] % (Auto) Eos % (Auto) Lymph # (Auto) [place] # (Auto) Eos # (Auto) Baso # (Auto) Seg Neutrophils % Seg Neuts % (Manual) Lymphocytes % (Manual) Seg Neutrophils # Seg Neutrophils # Man Lymphocytes # (Manual) D-Dimer ABG pH POC ABG pCO2 POC ABG pO2 ABG pO2 ABG HCO3 ABG O2 Saturation ABG Base Excess ABG Oxyhemoglobin ABG Sodium ABG Chloride ABG Glucose Oxyhemoglobin Carboxyhemoglobin Sodium Potassium Chloride Carbon Dioxide BUN Creatinine Glucose POC Glucose 149 H 60 L 208 H Hemoglobin A1c Magnesium Ferritin AST ALT Alkaline Phosphatase Lactate Dehydrogenase C-Reactive Protein Total Protein Albumin Arterial Blood Glucose Coronavirus (PCR) 06/19/21 06/19/21 06/20/21 16:06 22:28 07:48 WBC MCV MCH MCHC RDW Lymph % (Auto) [place] % (Auto) Eos % (Auto) Lymph # (Auto) [place] # (Auto) Eos # (Auto) Baso # (Auto) Seg Neutrophils % Seg Neuts % (Manual) Lymphocytes % (Manual) Seg Neutrophils # Seg Neutrophils # Man Lymphocytes # (Manual) D-Dimer ABG pH POC ABG pCO2 POC ABG pO2 ABG pO2 ABG HCO3 ABG O2 Saturation ABG Base Excess ABG Oxyhemoglobin ABG Sodium ABG Chloride ABG Glucose Oxyhemoglobin Carboxyhemoglobin Sodium Potassium Chloride Carbon Dioxide BUN Creatinine Glucose POC Glucose 266 H 166 H 58 L Hemoglobin A1c Magnesium Ferritin AST ALT Alkaline Phosphatase Lactate Dehydrogenase C-Reactive Protein Total Protein Albumin Arterial Blood Glucose Coronavirus (PCR) 06/20/21 06/20/21 06/20/21 09:09 11:04 16:01 WBC MCV MCH MCHC RDW Lymph % (Auto) [place] % (Auto) Eos % (Auto) Lymph # (Auto) [place] # (Auto) Eos # (Auto) Baso # (Auto) Seg Neutrophils % Seg Neuts % (Manual) Lymphocytes % (Manual) Seg Neutrophils # Seg Neutrophils # Man Lymphocytes # (Manual) D-Dimer ABG pH POC ABG pCO2 POC ABG pO2 ABG pO2 ABG HCO3 ABG O2 Saturation ABG Base Excess ABG Oxyhemoglobin ABG Sodium ABG Chloride ABG Glucose Oxyhemoglobin Carboxyhemoglobin Sodium Potassium Chloride Carbon Dioxide BUN Creatinine Glucose POC Glucose 146 H 225 H 330 H Hemoglobin A1c Magnesium Ferritin AST ALT Alkaline Phosphatase Lactate Dehydrogenase C-Reactive Protein Total Protein Albumin Arterial Blood Glucose Coronavirus (PCR) 06/20/21 06/21/21 06/21/21 20:46 06:45 06:45 WBC MCV MCH MCHC RDW 20.0 H Lymph % (Auto) [place] % (Auto) Eos % (Auto) Lymph # (Auto) [place] # (Auto) Eos # (Auto) Baso # (Auto) Seg Neutrophils % Seg Neuts % (Manual) Lymphocytes % (Manual) Seg Neutrophils # Seg Neutrophils # Man Lymphocytes # (Manual) D-Dimer ABG pH POC ABG pCO2 POC ABG pO2 ABG pO2 ABG HCO3 ABG O2 Saturation ABG Base Excess ABG Oxyhemoglobin ABG Sodium ABG Chloride ABG Glucose Oxyhemoglobin Carboxyhemoglobin Sodium Potassium 2.9 L* Chloride 95.0 L Carbon Dioxide 31 H BUN 23 H Creatinine 0.2 L Glucose 45 L POC Glucose 215 H Hemoglobin A1c Magnesium Ferritin AST ALT Alkaline Phosphatase Lactate Dehydrogenase C-Reactive Protein Total Protein Albumin Arterial Blood Glucose Coronavirus (PCR) 06/21/21 06/21/21 06/21/21 07:38 09:06 12:40 WBC MCV MCH MCHC RDW Lymph % (Auto) [place] % (Auto) Eos % (Auto) Lymph # (Auto) [place] # (Auto) Eos # (Auto) Baso # (Auto) Seg Neutrophils % Seg Neuts % (Manual) Lymphocytes % (Manual) Seg Neutrophils # Seg Neutrophils # Man Lymphocytes # (Manual) D-Dimer ABG pH POC ABG pCO2 POC ABG pO2 ABG pO2 ABG HCO3 ABG O2 Saturation ABG Base Excess ABG Oxyhemoglobin ABG Sodium ABG Chloride ABG Glucose Oxyhemoglobin Carboxyhemoglobin Sodium Potassium Chloride Carbon Dioxide BUN Creatinine Glucose POC Glucose 50 L 196 H 205 H Hemoglobin A1c Magnesium Ferritin AST ALT Alkaline Phosphatase Lactate Dehydrogenase C-Reactive Protein Total Protein Albumin Arterial Blood Glucose Coronavirus (PCR) 06/21/21 06/22/21 06/22/21 21:36 06:25 07:15 WBC MCV MCH MCHC RDW Lymph % (Auto) [place] % (Auto) Eos % (Auto) Lymph # (Auto) [place] # (Auto) Eos # (Auto) Baso # (Auto) Seg Neutrophils % Seg Neuts % (Manual) Lymphocytes % (Manual) Seg Neutrophils # Seg Neutrophils # Man Lymphocytes # (Manual) D-Dimer ABG pH POC ABG pCO2 POC ABG pO2 ABG pO2 ABG HCO3 ABG O2 Saturation ABG Base Excess ABG Oxyhemoglobin ABG Sodium ABG Chloride ABG Glucose Oxyhemoglobin Carboxyhemoglobin Sodium Potassium Chloride Carbon Dioxide BUN 20 H Creatinine 0.2 L Glucose POC Glucose 245 H 66 L Hemoglobin A1c Magnesium Ferritin AST ALT Alkaline Phosphatase Lactate Dehydrogenase C-Reactive Protein Total Protein Albumin Arterial Blood Glucose Coronavirus (PCR) 06/22/21 06/22/21 06/22/21 11:03 16:07 22:03 WBC MCV MCH MCHC RDW Lymph % (Auto) [place] % (Auto) Eos % (Auto) Lymph # (Auto) [place] # (Auto) Eos # (Auto) Baso # (Auto) Seg Neutrophils % Seg Neuts % (Manual) Lymphocytes % (Manual) Seg Neutrophils # Seg Neutrophils # Man Lymphocytes # (Manual) D-Dimer ABG pH POC ABG pCO2 POC ABG pO2 ABG pO2 ABG HCO3 ABG O2 Saturation ABG Base Excess ABG Oxyhemoglobin ABG Sodium ABG Chloride ABG Glucose Oxyhemoglobin Carboxyhemoglobin Sodium Potassium Chloride Carbon Dioxide BUN Creatinine Glucose POC Glucose 184 H 326 H 138 H Hemoglobin A1c Magnesium Ferritin AST ALT Alkaline Phosphatase Lactate Dehydrogenase C-Reactive Protein Total Protein Albumin Arterial Blood Glucose Coronavirus (PCR) 06/23/21 06/23/21 06/23/21 07:19 10:34 16:35 WBC MCV MCH MCHC RDW Lymph % (Auto) [place] % (Auto) Eos % (Auto) Lymph # (Auto) [place] # (Auto) Eos # (Auto) Baso # (Auto) Seg Neutrophils % Seg Neuts % (Manual) Lymphocytes % (Manual) Seg Neutrophils # Seg Neutrophils # Man Lymphocytes # (Manual) D-Dimer ABG pH POC ABG pCO2 POC ABG pO2 ABG pO2 ABG HCO3 ABG O2 Saturation ABG Base Excess ABG Oxyhemoglobin ABG Sodium ABG Chloride ABG Glucose Oxyhemoglobin Carboxyhemoglobin Sodium Potassium Chloride Carbon Dioxide BUN Creatinine Glucose POC Glucose 69 L 218 H 326 H Hemoglobin A1c Magnesium Ferritin AST ALT Alkaline Phosphatase Lactate Dehydrogenase C-Reactive Protein Total Protein Albumin Arterial Blood Glucose Coronavirus (PCR) 06/23/21 06/24/21 06/24/21 22:44 11:41 16:54 WBC MCV MCH MCHC RDW Lymph % (Auto) [place] % (Auto) Eos % (Auto) Lymph # (Auto) [place] # (Auto) Eos # (Auto) Baso # (Auto) Seg Neutrophils % Seg Neuts % (Manual) Lymphocytes % (Manual) Seg Neutrophils # Seg Neutrophils # Man Lymphocytes # (Manual) D-Dimer ABG pH POC ABG pCO2 POC ABG pO2 ABG pO2 ABG HCO3 ABG O2 Saturation ABG Base Excess ABG Oxyhemoglobin ABG Sodium ABG Chloride ABG Glucose Oxyhemoglobin Carboxyhemoglobin Sodium Potassium Chloride Carbon Dioxide BUN Creatinine Glucose POC Glucose 252 H 217 H 357 H Hemoglobin A1c Magnesium Ferritin AST ALT Alkaline Phosphatase Lactate Dehydrogenase C-Reactive Protein Total Protein Albumin Arterial Blood Glucose Coronavirus (PCR) 06/24/21 06/25/21 06/25/21 20:40 11:51 16:47 WBC MCV MCH MCHC RDW Lymph % (Auto) [place] % (Auto) Eos % (Auto) Lymph # (Auto) [place] # (Auto) Eos # (Auto) Baso # (Auto) Seg Neutrophils % Seg Neuts % (Manual) Lymphocytes % (Manual) Seg Neutrophils # Seg Neutrophils # Man Lymphocytes # (Manual) D-Dimer ABG pH POC ABG pCO2 POC ABG pO2 ABG pO2 ABG HCO3 ABG O2 Saturation ABG Base Excess ABG Oxyhemoglobin ABG Sodium ABG Chloride ABG Glucose Oxyhemoglobin Carboxyhemoglobin Sodium Potassium Chloride Carbon Dioxide BUN Creatinine Glucose POC Glucose 239 H 182 H 229 H Hemoglobin A1c Magnesium Ferritin AST ALT Alkaline Phosphatase Lactate Dehydrogenase C-Reactive Protein Total Protein Albumin Arterial Blood Glucose Coronavirus (PCR) 06/25/21 06/26/21 06/26/21 22:27 07:20 12:19 WBC MCV MCH MCHC RDW Lymph % (Auto) [place] % (Auto) Eos % (Auto) Lymph # (Auto) [place] # (Auto) Eos # (Auto) Baso # (Auto) Seg Neutrophils % Seg Neuts % (Manual) Lymphocytes % (Manual) Seg Neutrophils # Seg Neutrophils # Man Lymphocytes # (Manual) D-Dimer ABG pH POC ABG pCO2 POC ABG pO2 ABG pO2 ABG HCO3 ABG O2 Saturation ABG Base Excess ABG Oxyhemoglobin ABG Sodium ABG Chloride ABG Glucose Oxyhemoglobin Carboxyhemoglobin Sodium Potassium 3.2 L D Chloride Carbon Dioxide BUN 20 H Creatinine 0.3 L Glucose POC Glucose 209 H 273 H Hemoglobin A1c Magnesium Ferritin AST ALT 77 H Alkaline Phosphatase Lactate Dehydrogenase C-Reactive Protein Total Protein Albumin 3.3 L Arterial Blood Glucose Coronavirus (PCR) 06/26/21 06/26/21 06/27/21 16:52 20:55 07:14 WBC MCV MCH MCHC RDW Lymph % (Auto) [place] % (Auto) Eos % (Auto) Lymph # (Auto) [place] # (Auto) Eos # (Auto) Baso # (Auto) Seg Neutrophils % Seg Neuts % (Manual) Lymphocytes % (Manual) Seg Neutrophils # Seg Neutrophils # Man Lymphocytes # (Manual) D-Dimer ABG pH POC ABG pCO2 POC ABG pO2 ABG pO2 ABG HCO3 ABG O2 Saturation ABG Base Excess ABG Oxyhemoglobin ABG Sodium ABG Chloride ABG Glucose Oxyhemoglobin Carboxyhemoglobin Sodium Potassium Chloride Carbon Dioxide 31 H BUN 19 H Creatinine 0.2 L Glucose 112 H POC Glucose 326 H 220 H Hemoglobin A1c Magnesium Ferritin AST ALT Alkaline Phosphatase Lactate Dehydrogenase C-Reactive Protein Total Protein Albumin Arterial Blood Glucose Coronavirus (PCR) 06/27/21 06/27/21 06/27/21 07:29 10:54 15:49 WBC MCV MCH MCHC RDW Lymph % (Auto) [place] % (Auto) Eos % (Auto) Lymph # (Auto) [place] # (Auto) Eos # (Auto) Baso # (Auto) Seg Neutrophils % Seg Neuts % (Manual) Lymphocytes % (Manual) Seg Neutrophils # Seg Neutrophils # Man Lymphocytes # (Manual) D-Dimer ABG pH POC ABG pCO2 POC ABG pO2 ABG pO2 ABG HCO3 ABG O2 Saturation ABG Base Excess ABG Oxyhemoglobin ABG Sodium ABG Chloride ABG Glucose Oxyhemoglobin Carboxyhemoglobin Sodium Potassium Chloride Carbon Dioxide BUN Creatinine Glucose POC Glucose 115 H 228 H 240 H Hemoglobin A1c Magnesium Ferritin AST ALT Alkaline Phosphatase Lactate Dehydrogenase C-Reactive Protein Total Protein Albumin Arterial Blood Glucose Coronavirus (PCR) 06/28/21 06/28/21 06/28/21 05:43 05:43 07:13 WBC MCV MCH 33 H MCHC RDW 19.8 H Lymph % (Auto) [place] % (Auto) Eos % (Auto) Lymph # (Auto) [place] # (Auto) Eos # (Auto) Baso # (Auto) Seg Neutrophils % Seg Neuts % (Manual) Lymphocytes % (Manual) Seg Neutrophils # Seg Neutrophils # Man Lymphocytes # (Manual) D-Dimer ABG pH POC ABG pCO2 POC ABG pO2 ABG pO2 ABG HCO3 ABG O2 Saturation ABG Base Excess ABG Oxyhemoglobin ABG Sodium ABG Chloride ABG Glucose Oxyhemoglobin Carboxyhemoglobin Sodium Potassium 3.3 L Chloride Carbon Dioxide BUN 22 H Creatinine 0.2 L Glucose POC Glucose 69 L Hemoglobin A1c Magnesium Ferritin AST ALT 63 H Alkaline Phosphatase Lactate Dehydrogenase C-Reactive Protein Total Protein Albumin 3.3 L Arterial Blood Glucose Coronavirus (PCR) 06/28/21 06/28/21 06/28/21 12:18 15:37 21:01 WBC MCV MCH MCHC RDW Lymph % (Auto) [place] % (Auto) Eos % (Auto) Lymph # (Auto) [place] # (Auto) Eos # (Auto) Baso # (Auto) Seg Neutrophils % Seg Neuts % (Manual) Lymphocytes % (Manual) Seg Neutrophils # Seg Neutrophils # Man Lymphocytes # (Manual) D-Dimer ABG pH POC ABG pCO2 POC ABG pO2 ABG pO2 ABG HCO3 ABG O2 Saturation ABG Base Excess ABG Oxyhemoglobin ABG Sodium ABG Chloride ABG Glucose Oxyhemoglobin Carboxyhemoglobin Sodium Potassium Chloride Carbon Dioxide BUN Creatinine Glucose POC Glucose 154 H 201 H 191 H Hemoglobin A1c Magnesium Ferritin AST ALT Alkaline Phosphatase Lactate Dehydrogenase C-Reactive Protein Total Protein Albumin Arterial Blood Glucose Coronavirus (PCR) 06/29/21 06/29/21 06/29/21 11:55 15:47 21:06 WBC MCV MCH MCHC RDW Lymph % (Auto) [place] % (Auto) Eos % (Auto) Lymph # (Auto) [place] # (Auto) Eos # (Auto) Baso # (Auto) Seg Neutrophils % Seg Neuts % (Manual) Lymphocytes % (Manual) Seg Neutrophils # Seg Neutrophils # Man Lymphocytes # (Manual) D-Dimer ABG pH POC ABG pCO2 POC ABG pO2 ABG pO2 ABG HCO3 ABG O2 Saturation ABG Base Excess ABG Oxyhemoglobin ABG Sodium ABG Chloride ABG Glucose Oxyhemoglobin Carboxyhemoglobin Sodium Potassium Chloride Carbon Dioxide BUN Creatinine Glucose POC Glucose 238 H 249 H 155 H Hemoglobin A1c Magnesium Ferritin AST ALT Alkaline Phosphatase Lactate Dehydrogenase C-Reactive Protein Total Protein Albumin Arterial Blood Glucose Coronavirus (PCR) 06/30/21 06/30/21 06/30/21 04:00 07:50 11:50 WBC MCV MCH MCHC RDW Lymph % (Auto) [place] % (Auto) Eos % (Auto) Lymph # (Auto) [place] # (Auto) Eos # (Auto) Baso # (Auto) Seg Neutrophils % Seg Neuts % (Manual) Lymphocytes % (Manual) Seg Neutrophils # Seg Neutrophils # Man Lymphocytes # (Manual) D-Dimer ABG pH POC ABG pCO2 POC ABG pO2 ABG pO2 ABG HCO3 ABG O2 Saturation ABG Base Excess ABG Oxyhemoglobin ABG Sodium ABG Chloride ABG Glucose Oxyhemoglobin Carboxyhemoglobin Sodium Potassium 3.5 L Chloride Carbon Dioxide BUN 18 H Creatinine 0.3 L Glucose 111 H POC Glucose 117 H 250 H Hemoglobin A1c Magnesium Ferritin AST ALT Alkaline Phosphatase Lactate Dehydrogenase C-Reactive Protein Total Protein Albumin Arterial Blood Glucose Coronavirus (PCR) 06/30/21 06/30/21 07/01/21 16:05 21:02 07:26 WBC MCV MCH MCHC RDW Lymph % (Auto) [place] % (Auto) Eos % (Auto) Lymph # (Auto) [place] # (Auto) Eos # (Auto) Baso # (Auto) Seg Neutrophils % Seg Neuts % (Manual) Lymphocytes % (Manual) Seg Neutrophils # Seg Neutrophils # Man Lymphocytes # (Manual) D-Dimer ABG pH POC ABG pCO2 POC ABG pO2 ABG pO2 ABG HCO3 ABG O2 Saturation ABG Base Excess ABG Oxyhemoglobin ABG Sodium ABG Chloride ABG Glucose Oxyhemoglobin Carboxyhemoglobin Sodium Potassium Chloride Carbon Dioxide BUN Creatinine Glucose POC Glucose 250 H 217 H 111 H Hemoglobin A1c Magnesium Ferritin AST ALT Alkaline Phosphatase Lactate Dehydrogenase C-Reactive Protein Total Protein Albumin Arterial Blood Glucose Coronavirus (PCR) 07/01/21 07/01/21 07/01/21 11:06 15:48 21:31 WBC MCV MCH MCHC RDW Lymph % (Auto) [place] % (Auto) Eos % (Auto) Lymph # (Auto) [place] # (Auto) Eos # (Auto) Baso # (Auto) Seg Neutrophils % Seg Neuts % (Manual) Lymphocytes % (Manual) Seg Neutrophils # Seg Neutrophils # Man Lymphocytes # (Manual) D-Dimer ABG pH POC ABG pCO2 POC ABG pO2 ABG pO2 ABG HCO3 ABG O2 Saturation ABG Base Excess ABG Oxyhemoglobin ABG Sodium ABG Chloride ABG Glucose Oxyhemoglobin Carboxyhemoglobin Sodium Potassium Chloride Carbon Dioxide BUN Creatinine Glucose POC Glucose 229 H 239 H 199 H Hemoglobin A1c Magnesium Ferritin AST ALT Alkaline Phosphatase Lactate Dehydrogenase C-Reactive Protein Total Protein Albumin Arterial Blood Glucose Coronavirus (PCR) 07/02/21 07/02/21 07/02/21 11:50 16:44 21:49 WBC MCV MCH MCHC RDW Lymph % (Auto) [place] % (Auto) Eos % (Auto) Lymph # (Auto) [place] # (Auto) Eos # (Auto) Baso # (Auto) Seg Neutrophils % Seg Neuts % (Manual) Lymphocytes % (Manual) Seg Neutrophils # Seg Neutrophils # Man Lymphocytes # (Manual) D-Dimer ABG pH POC ABG pCO2 POC ABG pO2 ABG pO2 ABG HCO3 ABG O2 Saturation ABG Base Excess ABG Oxyhemoglobin ABG Sodium ABG Chloride ABG Glucose Oxyhemoglobin Carboxyhemoglobin Sodium Potassium Chloride Carbon Dioxide BUN Creatinine Glucose POC Glucose 230 H 203 H 197 H Hemoglobin A1c Magnesium Ferritin AST ALT Alkaline Phosphatase Lactate Dehydrogenase C-Reactive Protein Total Protein Albumin Arterial Blood Glucose Coronavirus (PCR) 07/03/21 07/03/21 07/03/21 05:46 05:46 11:59 WBC MCV MCH MCHC RDW 19.6 H Lymph % (Auto) [place] % (Auto) Eos % (Auto) Lymph # (Auto) [place] # (Auto) Eos # (Auto) Baso # (Auto) Seg Neutrophils % Seg Neuts % (Manual) Lymphocytes % (Manual) Seg Neutrophils # Seg Neutrophils # Man Lymphocytes # (Manual) D-Dimer ABG pH POC ABG pCO2 POC ABG pO2 ABG pO2 ABG HCO3 ABG O2 Saturation ABG Base Excess ABG Oxyhemoglobin ABG Sodium ABG Chloride ABG Glucose Oxyhemoglobin Carboxyhemoglobin Sodium Potassium 3.2 L Chloride Carbon Dioxide BUN Creatinine 0.3 L Glucose POC Glucose 145 H Hemoglobin A1c Magnesium Ferritin AST ALT Alkaline Phosphatase Lactate Dehydrogenase C-Reactive Protein Total Protein Albumin Arterial Blood Glucose Coronavirus (PCR) 07/03/21 07/03/21 07/04/21 16:40 22:00 06:35 WBC MCV MCH MCHC RDW Lymph % (Auto) [place] % (Auto) Eos % (Auto) Lymph # (Auto) [place] # (Auto) Eos # (Auto) Baso # (Auto) Seg Neutrophils % Seg Neuts % (Manual) Lymphocytes % (Manual) Seg Neutrophils # Seg Neutrophils # Man Lymphocytes # (Manual) D-Dimer ABG pH POC ABG pCO2 POC ABG pO2 ABG pO2 ABG HCO3 ABG O2 Saturation ABG Base Excess ABG Oxyhemoglobin ABG Sodium ABG Chloride ABG Glucose Oxyhemoglobin Carboxyhemoglobin Sodium Potassium Chloride Carbon Dioxide BUN Creatinine 0.3 L Glucose 118 H POC Glucose 176 H 127 H Hemoglobin A1c Magnesium Ferritin AST ALT Alkaline Phosphatase Lactate Dehydrogenase C-Reactive Protein Total Protein Albumin Arterial Blood Glucose Coronavirus (PCR) 07/04/21 07/04/21 07/05/21 12:30 16:38 08:37 WBC MCV MCH MCHC RDW Lymph % (Auto) [place] % (Auto) Eos % (Auto) Lymph # (Auto) [place] # (Auto) Eos # (Auto) Baso # (Auto) Seg Neutrophils % Seg Neuts % (Manual) Lymphocytes % (Manual) Seg Neutrophils # Seg Neutrophils # Man Lymphocytes # (Manual) D-Dimer ABG pH POC ABG pCO2 POC ABG pO2 ABG pO2 ABG HCO3 ABG O2 Saturation ABG Base Excess ABG Oxyhemoglobin ABG Sodium ABG Chloride ABG Glucose Oxyhemoglobin Carboxyhemoglobin Sodium Potassium Chloride Carbon Dioxide BUN Creatinine Glucose POC Glucose 162 H 205 H 115 H Hemoglobin A1c Magnesium Ferritin AST ALT Alkaline Phosphatase Lactate Dehydrogenase C-Reactive Protein Total Protein Albumin Arterial Blood Glucose Coronavirus (PCR) 07/05/21 07/05/21 07/05/21 10:57 16:42 21:14 WBC MCV MCH MCHC RDW Lymph % (Auto) [place] % (Auto) Eos % (Auto) Lymph # (Auto) [place] # (Auto) Eos # (Auto) Baso # (Auto) Seg Neutrophils % Seg Neuts % (Manual) Lymphocytes % (Manual) Seg Neutrophils # Seg Neutrophils # Man Lymphocytes # (Manual) D-Dimer ABG pH POC ABG pCO2 POC ABG pO2 ABG pO2 ABG HCO3 ABG O2 Saturation ABG Base Excess ABG Oxyhemoglobin ABG Sodium ABG Chloride ABG Glucose Oxyhemoglobin Carboxyhemoglobin Sodium Potassium Chloride Carbon Dioxide BUN Creatinine Glucose POC Glucose 151 H 184 H 130 H Hemoglobin A1c Magnesium Ferritin AST ALT Alkaline Phosphatase Lactate Dehydrogenase C-Reactive Protein Total Protein Albumin Arterial Blood Glucose Coronavirus (PCR) 07/06/21 07/06/21 07/06/21 07:31 11:49 16:46 WBC MCV MCH MCHC RDW Lymph % (Auto) [place] % (Auto) Eos % (Auto) Lymph # (Auto) [place] # (Auto) Eos # (Auto) Baso # (Auto) Seg Neutrophils % Seg Neuts % (Manual) Lymphocytes % (Manual) Seg Neutrophils # Seg Neutrophils # Man Lymphocytes # (Manual) D-Dimer ABG pH POC ABG pCO2 POC ABG pO2 ABG pO2 ABG HCO3 ABG O2 Saturation ABG Base Excess ABG Oxyhemoglobin ABG Sodium ABG Chloride ABG Glucose Oxyhemoglobin Carboxyhemoglobin Sodium Potassium Chloride Carbon Dioxide BUN Creatinine Glucose POC Glucose 106 H 173 H 205 H Hemoglobin A1c Magnesium Ferritin AST ALT Alkaline Phosphatase Lactate Dehydrogenase C-Reactive Protein Total Protein Albumin Arterial Blood Glucose Coronavirus (PCR) 07/06/21 07/07/21 07/07/21 21:38 06:00 06:00 WBC 16.1 H MCV MCH MCHC RDW 18.8 H Lymph % (Auto) [place] % (Auto) Eos % (Auto) Lymph # (Auto) [place] # (Auto) 1.1 H Eos # (Auto) Baso # (Auto) 0.2 H Seg Neutrophils % 74.9 H Seg Neuts % (Manual) Lymphocytes % (Manual) Seg Neutrophils # 12.1 H Seg Neutrophils # Man Lymphocytes # (Manual) D-Dimer ABG pH POC ABG pCO2 POC ABG pO2 ABG pO2 ABG HCO3 ABG O2 Saturation ABG Base Excess ABG Oxyhemoglobin ABG Sodium ABG Chloride ABG Glucose Oxyhemoglobin Carboxyhemoglobin Sodium Potassium 3.5 L D Chloride Carbon Dioxide BUN 6 L Creatinine < 0.2 L Glucose 106 H POC Glucose 120 H Hemoglobin A1c Magnesium Ferritin AST ALT Alkaline Phosphatase Lactate Dehydrogenase C-Reactive Protein Total Protein Albumin Arterial Blood Glucose Coronavirus (PCR) 07/07/21 07/07/21 07/07/21 07:10 11:53 15:53 WBC MCV MCH MCHC RDW Lymph % (Auto) [place] % (Auto) Eos % (Auto) Lymph # (Auto) [place] # (Auto) Eos # (Auto) Baso # (Auto) Seg Neutrophils % Seg Neuts % (Manual) Lymphocytes % (Manual) Seg Neutrophils # Seg Neutrophils # Man Lymphocytes # (Manual) D-Dimer ABG pH POC ABG pCO2 POC ABG pO2 ABG pO2 ABG HCO3 ABG O2 Saturation ABG Base Excess ABG Oxyhemoglobin ABG Sodium ABG Chloride ABG Glucose Oxyhemoglobin Carboxyhemoglobin Sodium Potassium Chloride Carbon Dioxide BUN Creatinine Glucose POC Glucose 132 H 169 H 242 H Hemoglobin A1c Magnesium Ferritin AST ALT Alkaline Phosphatase Lactate Dehydrogenase C-Reactive Protein Total Protein Albumin Arterial Blood Glucose Coronavirus (PCR) 07/07/21 07/08/21 07/08/21 21:41 08:09 12:20 WBC MCV MCH MCHC RDW Lymph % (Auto) [place] % (Auto) Eos % (Auto) Lymph # (Auto) [place] # (Auto) Eos # (Auto) Baso # (Auto) Seg Neutrophils % Seg Neuts % (Manual) Lymphocytes % (Manual) Seg Neutrophils # Seg Neutrophils # Man Lymphocytes # (Manual) D-Dimer ABG pH POC ABG pCO2 POC ABG pO2 ABG pO2 ABG HCO3 ABG O2 Saturation ABG Base Excess ABG Oxyhemoglobin ABG Sodium ABG Chloride ABG Glucose Oxyhemoglobin Carboxyhemoglobin Sodium Potassium Chloride Carbon Dioxide BUN Creatinine Glucose POC Glucose 128 H 132 H 179 H Hemoglobin A1c Magnesium Ferritin AST ALT Alkaline Phosphatase Lactate Dehydrogenase C-Reactive Protein Total Protein Albumin Arterial Blood Glucose Coronavirus (PCR) 07/08/21 07/08/21 07/08/21 16:37 21:45 22:44 WBC MCV MCH MCHC RDW Lymph % (Auto) [place] % (Auto) Eos % (Auto) Lymph # (Auto) [place] # (Auto) Eos # (Auto) Baso # (Auto) Seg Neutrophils % Seg Neuts % (Manual) Lymphocytes % (Manual) Seg Neutrophils # Seg Neutrophils # Man Lymphocytes # (Manual) D-Dimer ABG pH POC ABG pCO2 POC ABG pO2 ABG pO2 ABG HCO3 ABG O2 Saturation ABG Base Excess ABG Oxyhemoglobin ABG Sodium ABG Chloride ABG Glucose Oxyhemoglobin Carboxyhemoglobin Sodium Potassium Chloride Carbon Dioxide BUN Creatinine Glucose POC Glucose 192 H 51 L 137 H Hemoglobin A1c Magnesium Ferritin AST ALT Alkaline Phosphatase Lactate Dehydrogenase C-Reactive Protein Total Protein Albumin Arterial Blood Glucose Coronavirus (PCR) 07/09/21 07/09/21 07/09/21 04:45 04:45 04:45 WBC MCV MCH MCHC RDW 18.3 H Lymph % (Auto) [place] % (Auto) Eos % (Auto) Lymph # (Auto) [place] # (Auto) Eos # (Auto) Baso # (Auto) Seg Neutrophils % Seg Neuts % (Manual) 82.0 H Lymphocytes % (Manual) 13.0 L Seg Neutrophils # Seg Neutrophils # Man 7.8 H Lymphocytes # (Manual) D-Dimer 638.35 H ABG pH POC ABG pCO2 POC ABG pO2 ABG pO2 ABG HCO3 ABG O2 Saturation ABG Base Excess ABG Oxyhemoglobin ABG Sodium ABG Chloride ABG Glucose Oxyhemoglobin Carboxyhemoglobin Sodium Potassium Chloride 96.9 L Carbon Dioxide 35 H BUN Creatinine 0.2 L Glucose 135 H POC Glucose Hemoglobin A1c Magnesium Ferritin AST ALT Alkaline Phosphatase Lactate Dehydrogenase C-Reactive Protein 4.30 H Total Protein Albumin Arterial Blood Glucose Coronavirus (PCR) 07/09/21 07/09/21 07/09/21 05:19 07:36 11:16 WBC MCV MCH MCHC RDW Lymph % (Auto) [place] % (Auto) Eos % (Auto) Lymph # (Auto) [place] # (Auto) Eos # (Auto) Baso # (Auto) Seg Neutrophils % Seg Neuts % (Manual) Lymphocytes % (Manual) Seg Neutrophils # Seg Neutrophils # Man Lymphocytes # (Manual) D-Dimer ABG pH POC ABG pCO2 POC ABG pO2 ABG pO2 ABG HCO3 ABG O2 Saturation ABG Base Excess ABG Oxyhemoglobin ABG Sodium ABG Chloride ABG Glucose Oxyhemoglobin Carboxyhemoglobin Sodium Potassium Chloride Carbon Dioxide BUN Creatinine Glucose POC Glucose 135 H 148 H 212 H Hemoglobin A1c Magnesium Ferritin AST ALT Alkaline Phosphatase Lactate Dehydrogenase C-Reactive Protein Total Protein Albumin Arterial Blood Glucose Coronavirus (PCR) 07/09/21 07/09/2107/10/21 15:21 21:12 05:40 WBC MCV MCH MCHC RDW Lymph % (Auto) [place] % (Auto) Eos % (Auto) Lymph # (Auto) [place] # (Auto) Eos # (Auto) Baso # (Auto) Seg Neutrophils % Seg Neuts % (Manual) Lymphocytes % (Manual) Seg Neutrophils # Seg Neutrophils # Man Lymphocytes # (Manual) D-Dimer ABG pH POC ABG pCO2 POC ABG pO2 ABG pO2 ABG HCO3 ABG O2 Saturation ABG Base Excess ABG Oxyhemoglobin ABG Sodium ABG Chloride ABG Glucose Oxyhemoglobin Carboxyhemoglobin Sodium Potassium 3.3 L Chloride 95.1 L Carbon Dioxide 39 H BUN Creatinine 0.2 L Glucose 122 H POC Glucose 128 H 196 H Hemoglobin A1c Magnesium Ferritin AST ALT Alkaline Phosphatase Lactate Dehydrogenase C-Reactive Protein Total Protein Albumin Arterial Blood Glucose Coronavirus (PCR) 07/10/21 07/10/21 07/10/21 07:38 11:15 16:29 WBC MCV MCH MCHC RDW Lymph % (Auto) [place] % (Auto) Eos % (Auto) Lymph # (Auto) [place] # (Auto) Eos # (Auto) Baso # (Auto) Seg Neutrophils % Seg Neuts % (Manual) Lymphocytes % (Manual) Seg Neutrophils # Seg Neutrophils # Man Lymphocytes # (Manual) D-Dimer ABG pH POC ABG pCO2 POC ABG pO2 ABG pO2 ABG HCO3 ABG O2 Saturation ABG Base Excess ABG Oxyhemoglobin ABG Sodium ABG Chloride ABG Glucose Oxyhemoglobin Carboxyhemoglobin Sodium Potassium Chloride Carbon Dioxide BUN Creatinine Glucose POC Glucose 128 H 175 H 174 H Hemoglobin A1c Magnesium Ferritin AST ALT Alkaline Phosphatase Lactate Dehydrogenase C-Reactive Protein Total Protein Albumin Arterial Blood Glucose Coronavirus (PCR) 07/10/21 07/11/21 07/11/21 20:49 05:50 12:08 WBC MCV MCH MCHC RDW Lymph % (Auto) [place] % (Auto) Eos % (Auto) Lymph # (Auto) [place] # (Auto) Eos # (Auto) Baso # (Auto) Seg Neutrophils % Seg Neuts % (Manual) Lymphocytes % (Manual) Seg Neutrophils # Seg Neutrophils # Man Lymphocytes # (Manual) D-Dimer ABG pH POC ABG pCO2 POC ABG pO2 ABG pO2 ABG HCO3 ABG O2 Saturation ABG Base Excess ABG Oxyhemoglobin ABG Sodium ABG Chloride ABG Glucose Oxyhemoglobin Carboxyhemoglobin Sodium Potassium Chloride 97.3 L Carbon Dioxide 34 H BUN Creatinine 0.2 L Glucose 109 H POC Glucose 142 H 220 H Hemoglobin A1c Magnesium Ferritin AST ALT Alkaline Phosphatase Lactate Dehydrogenase C-Reactive Protein Total Protein Albumin Arterial Blood Glucose Coronavirus (PCR) 07/11/21 07/11/21 07/12/21 17:09 21:55 07:36 WBC MCV MCH MCHC RDW Lymph % (Auto) [place] % (Auto) Eos % (Auto) Lymph # (Auto) [place] # (Auto) Eos # (Auto) Baso # (Auto) Seg Neutrophils % Seg Neuts % (Manual) Lymphocytes % (Manual) Seg Neutrophils # Seg Neutrophils # Man Lymphocytes # (Manual) D-Dimer ABG pH POC ABG pCO2 POC ABG pO2 ABG pO2 ABG HCO3 ABG O2 Saturation ABG Base Excess ABG Oxyhemoglobin ABG Sodium ABG Chloride ABG Glucose Oxyhemoglobin Carboxyhemoglobin Sodium Potassium Chloride Carbon Dioxide BUN Creatinine Glucose POC Glucose 219 H 124 H 114 H Hemoglobin A1c Magnesium Ferritin AST ALT Alkaline Phosphatase Lactate Dehydrogenase C-Reactive Protein Total Protein Albumin Arterial Blood Glucose Coronavirus (PCR) 07/12/21 07/12/21 07/12/21 11:08 15:43 22:20 WBC MCV MCH MCHC RDW Lymph % (Auto) [place] % (Auto) Eos % (Auto) Lymph # (Auto) [place] # (Auto) Eos # (Auto) Baso # (Auto) Seg Neutrophils % Seg Neuts % (Manual) Lymphocytes % (Manual) Seg Neutrophils # Seg Neutrophils # Man Lymphocytes # (Manual) D-Dimer ABG pH POC ABG pCO2 POC ABG pO2 ABG pO2 ABG HCO3 ABG O2 Saturation ABG Base Excess ABG Oxyhemoglobin ABG Sodium ABG Chloride ABG Glucose Oxyhemoglobin Carboxyhemoglobin Sodium Potassium Chloride Carbon Dioxide BUN Creatinine Glucose POC Glucose 195 H 276 H 189 H Hemoglobin A1c Magnesium Ferritin AST ALT Alkaline Phosphatase Lactate Dehydrogenase C-Reactive Protein Total Protein Albumin Arterial Blood Glucose Coronavirus (PCR) 07/13/21 07/13/21 07/13/21 08:01 08:08 10:17 WBC MCV MCH MCHC RDW Lymph % (Auto) [place] % (Auto) Eos % (Auto) Lymph # (Auto) [place] # (Auto) Eos # (Auto) Baso # (Auto) Seg Neutrophils % Seg Neuts % (Manual) Lymphocytes % (Manual) Seg Neutrophils # Seg Neutrophils # Man Lymphocytes # (Manual) D-Dimer ABG pH POC ABG pCO2 POC ABG pO2 ABG pO2 ABG HCO3 ABG O2 Saturation ABG Base Excess ABG Oxyhemoglobin ABG Sodium ABG Chloride ABG Glucose Oxyhemoglobin Carboxyhemoglobin Sodium Potassium Chloride 94.4 L Carbon Dioxide 34 H BUN Creatinine 0.3 L Glucose 149 H POC Glucose 132 H 265 H Hemoglobin A1c Magnesium Ferritin AST ALT Alkaline Phosphatase Lactate Dehydrogenase C-Reactive Protein Total Protein Albumin Arterial Blood Glucose Coronavirus (PCR) 07/13/21 07/13/21 07/14/21 17:58 21:41 07:34 WBC MCV MCH MCHC RDW Lymph % (Auto) [place] % (Auto) Eos % (Auto) Lymph # (Auto) [place] # (Auto) Eos # (Auto) Baso # (Auto) Seg Neutrophils % Seg Neuts % (Manual) Lymphocytes % (Manual) Seg Neutrophils # Seg Neutrophils # Man Lymphocytes # (Manual) D-Dimer ABG pH POC ABG pCO2 POC ABG pO2 ABG pO2 ABG HCO3 ABG O2 Saturation ABG Base Excess ABG Oxyhemoglobin ABG Sodium ABG Chloride ABG Glucose Oxyhemoglobin Carboxyhemoglobin Sodium Potassium Chloride Carbon Dioxide BUN Creatinine Glucose POC Glucose 217 H 223 H 116 H Hemoglobin A1c Magnesium Ferritin AST ALT Alkaline Phosphatase Lactate Dehydrogenase C-Reactive Protein Total Protein Albumin Arterial Blood Glucose Coronavirus (PCR) 07/14/21 07/14/21 07/14/21 10:50 17:33 20:51 WBC MCV MCH MCHC RDW Lymph % (Auto) [place] % (Auto) Eos % (Auto) Lymph # (Auto) [place] # (Auto) Eos # (Auto) Baso # (Auto) Seg Neutrophils % Seg Neuts % (Manual) Lymphocytes % (Manual) Seg Neutrophils # Seg Neutrophils # Man Lymphocytes # (Manual) D-Dimer ABG pH POC ABG pCO2 POC ABG pO2 ABG pO2 ABG HCO3 ABG O2 Saturation ABG Base Excess ABG Oxyhemoglobin ABG Sodium ABG Chloride ABG Glucose Oxyhemoglobin Carboxyhemoglobin Sodium Potassium Chloride Carbon Dioxide BUN Creatinine Glucose POC Glucose 191 H 173 H 132 H Hemoglobin A1c Magnesium Ferritin AST ALT Alkaline Phosphatase Lactate Dehydrogenase C-Reactive Protein Total Protein Albumin Arterial Blood Glucose Coronavirus (PCR) 07/15/21 07/15/21 07/15/21 04:00 07:59 12:31 WBC MCV MCH MCHC RDW Lymph % (Auto) [place] % (Auto) Eos % (Auto) Lymph # (Auto) [place] # (Auto) Eos # (Auto) Baso # (Auto) Seg Neutrophils % Seg Neuts % (Manual) Lymphocytes % (Manual) Seg Neutrophils # Seg Neutrophils # Man Lymphocytes # (Manual) D-Dimer ABG pH POC ABG pCO2 POC ABG pO2 ABG pO2 ABG HCO3 ABG O2 Saturation ABG Base Excess ABG Oxyhemoglobin ABG Sodium ABG Chloride ABG Glucose Oxyhemoglobin Carboxyhemoglobin Sodium Potassium Chloride 96.0 L Carbon Dioxide 32 H BUN Creatinine 0.3 L Glucose 208 H POC Glucose 117 H 195 H Hemoglobin A1c Magnesium Ferritin AST ALT Alkaline Phosphatase Lactate Dehydrogenase C-Reactive Protein Total Protein Albumin Arterial Blood Glucose Coronavirus (PCR) 07/15/21 07/15/21 07/16/21 18:00 20:57 04:40 WBC MCV MCH MCHC RDW 17.1 H Lymph % (Auto) [place] % (Auto) Eos % (Auto) Lymph # (Auto) [place] # (Auto) Eos # (Auto) Baso # (Auto) Seg Neutrophils % Seg Neuts % (Manual) Lymphocytes % (Manual) Seg Neutrophils # Seg Neutrophils # Man Lymphocytes # (Manual) D-Dimer ABG pH POC ABG pCO2 POC ABG pO2 ABG pO2 ABG HCO3 ABG O2 Saturation ABG Base Excess ABG Oxyhemoglobin ABG Sodium ABG Chloride ABG Glucose Oxyhemoglobin Carboxyhemoglobin Sodium Potassium Chloride Carbon Dioxide BUN Creatinine Glucose POC Glucose 217 H 111 H Hemoglobin A1c Magnesium Ferritin AST ALT Alkaline Phosphatase Lactate Dehydrogenase C-Reactive Protein Total Protein Albumin Arterial Blood Glucose Coronavirus (PCR) 07/16/21 07/16/21 07/16/21 04:40 07:08 11:11 WBC MCV MCH MCHC RDW Lymph % (Auto) [place] % (Auto) Eos % (Auto) Lymph # (Auto) [place] # (Auto) Eos # (Auto) Baso # (Auto) Seg Neutrophils % Seg Neuts % (Manual) Lymphocytes % (Manual) Seg Neutrophils # Seg Neutrophils # Man Lymphocytes # (Manual) D-Dimer ABG pH POC ABG pCO2 POC ABG pO2 ABG pO2 ABG HCO3 ABG O2 Saturation ABG Base Excess ABG Oxyhemoglobin ABG Sodium ABG Chloride ABG Glucose Oxyhemoglobin Carboxyhemoglobin Sodium Potassium 3.4 L Chloride 94.6 L Carbon Dioxide 36 H BUN Creatinine < 0.2 L Glucose 101 H POC Glucose 118 H 184 H Hemoglobin A1c Magnesium Ferritin AST ALT Alkaline Phosphatase Lactate Dehydrogenase C-Reactive Protein Total Protein Albumin Arterial Blood Glucose Coronavirus (PCR) 07/16/21 07/16/21 07/17/21 17:29 22:01 08:10 WBC MCV MCH MCHC RDW Lymph % (Auto) [place] % (Auto) Eos % (Auto) Lymph # (Auto) [place] # (Auto) Eos # (Auto) Baso # (Auto) Seg Neutrophils % Seg Neuts % (Manual) Lymphocytes % (Manual) Seg Neutrophils # Seg Neutrophils # Man Lymphocytes # (Manual) D-Dimer ABG pH POC ABG pCO2 POC ABG pO2 ABG pO2 ABG HCO3 ABG O2 Saturation ABG Base Excess ABG Oxyhemoglobin ABG Sodium ABG Chloride ABG Glucose Oxyhemoglobin Carboxyhemoglobin Sodium Potassium Chloride Carbon Dioxide BUN Creatinine Glucose POC Glucose 200 H 147 H 118 H Hemoglobin A1c Magnesium Ferritin AST ALT Alkaline Phosphatase Lactate Dehydrogenase C-Reactive Protein Total Protein Albumin Arterial Blood Glucose Coronavirus (PCR) 07/17/21 07/17/21 07/17/21 11:38 16:24 21:13 WBC MCV MCH MCHC RDW Lymph % (Auto) [place] % (Auto) Eos % (Auto) Lymph # (Auto) [place] # (Auto) Eos # (Auto) Baso # (Auto) Seg Neutrophils % Seg Neuts % (Manual) Lymphocytes % (Manual) Seg Neutrophils # Seg Neutrophils # Man Lymphocytes # (Manual) D-Dimer ABG pH POC ABG pCO2 POC ABG pO2 ABG pO2 ABG HCO3 ABG O2 Saturation ABG Base Excess ABG Oxyhemoglobin ABG Sodium ABG Chloride ABG Glucose Oxyhemoglobin Carboxyhemoglobin Sodium Potassium Chloride Carbon Dioxide BUN Creatinine Glucose POC Glucose 151 H 268 H 115 H Hemoglobin A1c Magnesium Ferritin AST ALT Alkaline Phosphatase Lactate Dehydrogenase C-Reactive Protein Total Protein Albumin Arterial Blood Glucose Coronavirus (PCR) 07/18/21 07/18/21 07/18/21 07:58 12:29 20:24 WBC MCV MCH MCHC RDW Lymph % (Auto) [place] % (Auto) Eos % (Auto) Lymph # (Auto) [place] # (Auto) Eos # (Auto) Baso # (Auto) Seg Neutrophils % Seg Neuts % (Manual) Lymphocytes % (Manual) Seg Neutrophils # Seg Neutrophils # Man Lymphocytes # (Manual) D-Dimer ABG pH POC ABG pCO2 POC ABG pO2 ABG pO2 ABG HCO3 ABG O2 Saturation ABG Base Excess ABG Oxyhemoglobin ABG Sodium ABG Chloride ABG Glucose Oxyhemoglobin Carboxyhemoglobin Sodium Potassium Chloride Carbon Dioxide BUN Creatinine Glucose POC Glucose 135 H 139 H 130 H Hemoglobin A1c Magnesium Ferritin AST ALT Alkaline Phosphatase Lactate Dehydrogenase C-Reactive Protein Total Protein Albumin Arterial Blood Glucose Coronavirus (PCR) 07/19/21 07/19/21 07/19/21 06:55 06:55 07:54 WBC 14.5 H MCV MCH MCHC RDW 17.3 H Lymph % (Auto) 9.6 L [place] % (Auto) Eos % (Auto) Lymph # (Auto) [place] # (Auto) Eos # (Auto) 0.6 H Baso # (Auto) Seg Neutrophils % 80.3 H Seg Neuts % (Manual) Lymphocytes % (Manual) Seg Neutrophils # 11.7 H Seg Neutrophils # Man Lymphocytes # (Manual) D-Dimer ABG pH POC ABG pCO2 67.9 H POC ABG pO2 131.0 H ABG pO2 ABG HCO3 ABG O2 Saturation ABG Base Excess ABG Oxyhemoglobin ABG Sodium ABG Chloride 97.0 L ABG Glucose 133 H Oxyhemoglobin Carboxyhemoglobin Sodium Potassium Chloride 95.3 L Carbon Dioxide 35 H BUN Creatinine < 0.2 L Glucose 138 H POC Glucose Hemoglobin A1c Magnesium Ferritin AST ALT Alkaline Phosphatase Lactate Dehydrogenase C-Reactive Protein Total Protein Albumin Arterial Blood Glucose 133 H Coronavirus (PCR) 07/19/21 07/19/21 07/19/21 08:10 11:43 17:04 WBC MCV MCH MCHC RDW Lymph % (Auto) [place] % (Auto) Eos % (Auto) Lymph # (Auto) [place] # (Auto) Eos # (Auto) Baso # (Auto) Seg Neutrophils % Seg Neuts % (Manual) Lymphocytes % (Manual) Seg Neutrophils # Seg Neutrophils # Man Lymphocytes # (Manual) D-Dimer ABG pH POC ABG pCO2 POC ABG pO2 ABG pO2 ABG HCO3 ABG O2 Saturation ABG Base Excess ABG Oxyhemoglobin ABG Sodium ABG Chloride ABG Glucose Oxyhemoglobin Carboxyhemoglobin Sodium Potassium Chloride Carbon Dioxide BUN Creatinine Glucose POC Glucose 129 H 126 H 108 H Hemoglobin A1c Magnesium Ferritin AST ALT Alkaline Phosphatase Lactate Dehydrogenase C-Reactive Protein Total Protein Albumin Arterial Blood Glucose Coronavirus (PCR) 07/19/21 07/20/21 07/20/21 21:10 04:00 04:00 WBC MCV MCH MCHC RDW 17.0 H Lymph % (Auto) [place] % (Auto) 8.9 H Eos % (Auto) 6.3 H Lymph # (Auto) [place] # (Auto) 0.9 H Eos # (Auto) 0.6 H Baso # (Auto) Seg Neutrophils % 70.2 H Seg Neuts % (Manual) Lymphocytes % (Manual) Seg Neutrophils # Seg Neutrophils # Man Lymphocytes # (Manual) D-Dimer ABG pH POC ABG pCO2 POC ABG pO2 ABG pO2 ABG HCO3 ABG O2 Saturation ABG Base Excess ABG Oxyhemoglobin ABG Sodium ABG Chloride ABG Glucose Oxyhemoglobin Carboxyhemoglobin Sodium Potassium Chloride 96.7 L Carbon Dioxide 36 H BUN Creatinine 0.2 L Glucose 102 H POC Glucose 109 H Hemoglobin A1c Magnesium Ferritin AST ALT Alkaline Phosphatase Lactate Dehydrogenase C-Reactive Protein Total Protein Albumin 3.2 L Arterial Blood Glucose Coronavirus (PCR) 07/20/21 07/20/21 07/20/21 11:15 15:34 17:01 WBC MCV MCH MCHC RDW Lymph % (Auto) [place] % (Auto) Eos % (Auto) Lymph # (Auto) [place] # (Auto) Eos # (Auto) Baso # (Auto) Seg Neutrophils % Seg Neuts % (Manual) Lymphocytes % (Manual) Seg Neutrophils # Seg Neutrophils # Man Lymphocytes # (Manual) D-Dimer ABG pH POC ABG pCO2 POC ABG pO2 ABG pO2 ABG HCO3 ABG O2 Saturation ABG Base Excess ABG Oxyhemoglobin ABG Sodium ABG Chloride ABG Glucose Oxyhemoglobin Carboxyhemoglobin Sodium Potassium Chloride Carbon Dioxide BUN Creatinine Glucose POC Glucose 109 H 152 H 125 H Hemoglobin A1c Magnesium Ferritin AST ALT Alkaline Phosphatase Lactate Dehydrogenase C-Reactive Protein Total Protein Albumin Arterial Blood Glucose Coronavirus (PCR) 07/20/21 07/21/21 07/21/21 21:00 04:48 04:48 WBC 12.8 H MCV MCH MCHC RDW 16.8 H Lymph % (Auto) 9.3 L [place] % (Auto) Eos % (Auto) Lymph # (Auto) [place] # (Auto) 0.9 H Eos # (Auto) Baso # (Auto) Seg Neutrophils % 81.1 H Seg Neuts % (Manual) Lymphocytes % (Manual) Seg Neutrophils # 10.4 H Seg Neutrophils # Man Lymphocytes # (Manual) D-Dimer ABG pH POC ABG pCO2 POC ABG pO2 ABG pO2 ABG HCO3 ABG O2 Saturation ABG Base Excess ABG Oxyhemoglobin ABG Sodium ABG Chloride ABG Glucose Oxyhemoglobin Carboxyhemoglobin Sodium Potassium Chloride 95.4 L Carbon Dioxide 33 H BUN 6 L Creatinine < 0.2 L Glucose 155 H POC Glucose 211 H Hemoglobin A1c Magnesium 1.60 L Ferritin AST ALT Alkaline Phosphatase Lactate Dehydrogenase C-Reactive Protein Total Protein Albumin Arterial Blood Glucose Coronavirus (PCR) 07/21/21 07/21/21 07/21/21 07:52 11:05 17:01 WBC MCV MCH MCHC RDW Lymph % (Auto) [place] % (Auto) Eos % (Auto) Lymph # (Auto) [place] # (Auto) Eos # (Auto) Baso # (Auto) Seg Neutrophils % Seg Neuts % (Manual) Lymphocytes % (Manual) Seg Neutrophils # Seg Neutrophils # Man Lymphocytes # (Manual) D-Dimer ABG pH POC ABG pCO2 POC ABG pO2 ABG pO2 ABG HCO3 ABG O2 Saturation ABG Base Excess ABG Oxyhemoglobin ABG Sodium ABG Chloride ABG Glucose Oxyhemoglobin Carboxyhemoglobin Sodium Potassium Chloride Carbon Dioxide BUN Creatinine Glucose POC Glucose 116 H 207 H 133 H Hemoglobin A1c Magnesium Ferritin AST ALT Alkaline Phosphatase Lactate Dehydrogenase C-Reactive Protein Total Protein Albumin Arterial Blood Glucose Coronavirus (PCR) 07/21/21 07/22/21 07/22/21 21:17 07:55 07:55 WBC MCV MCH MCHC RDW 16.5 H Lymph % (Auto) [place] % (Auto) 8.6 H Eos % (Auto) Lymph # (Auto) [place] # (Auto) Eos # (Auto) Baso # (Auto) Seg Neutrophils % 72.3 H Seg Neuts % (Manual) Lymphocytes % (Manual) Seg Neutrophils # Seg Neutrophils # Man Lymphocytes # (Manual) D-Dimer ABG pH POC ABG pCO2 POC ABG pO2 ABG pO2 ABG HCO3 ABG O2 Saturation ABG Base Excess ABG Oxyhemoglobin ABG Sodium ABG Chloride ABG Glucose Oxyhemoglobin Carboxyhemoglobin Sodium Potassium Chloride 94.6 L Carbon Dioxide 42 H* D BUN 5 L Creatinine < 0.2 L Glucose POC Glucose 152 H Hemoglobin A1c Magnesium Ferritin AST ALT Alkaline Phosphatase Lactate Dehydrogenase C-Reactive Protein Total Protein Albumin Arterial Blood Glucose Coronavirus (PCR) 07/22/21 07/22/21 07/22/21 11:25 12:05 15:40 WBC MCV MCH MCHC RDW Lymph % (Auto) [place] % (Auto) Eos % (Auto) Lymph # (Auto) [place] # (Auto) Eos # (Auto) Baso # (Auto) Seg Neutrophils % Seg Neuts % (Manual) Lymphocytes % (Manual) Seg Neutrophils # Seg Neutrophils # Man Lymphocytes # (Manual) D-Dimer ABG pH 7.338 L POC ABG pCO2 POC ABG pO2 ABG pO2 66.1 L ABG HCO3 45.0 H ABG O2 Saturation 94.2 L ABG Base Excess 15.2 H ABG Oxyhemoglobin ABG Sodium ABG Chloride ABG Glucose Oxyhemoglobin 91.9 L Carboxyhemoglobin Sodium Potassium Chloride Carbon Dioxide BUN Creatinine Glucose POC Glucose 146 H 219 H Hemoglobin A1c Magnesium Ferritin AST ALT Alkaline Phosphatase Lactate Dehydrogenase C-Reactive Protein Total Protein Albumin Arterial Blood Glucose Coronavirus (PCR) 07/22/21 07/23/21 07/23/21 21:26 04:35 04:35 WBC MCV 98 H MCH MCHC RDW 16.2 H Lymph % (Auto) 7.9 L [place] % (Auto) Eos % (Auto) Lymph # (Auto) 0.9 L [place] # (Auto) Eos # (Auto) Baso # (Auto) Seg Neutrophils % 85.3 H Seg Neuts % (Manual) Lymphocytes % (Manual) Seg Neutrophils # 9.2 H Seg Neutrophils # Man Lymphocytes # (Manual) D-Dimer ABG pH POC ABG pCO2 POC ABG pO2 ABG pO2 ABG HCO3 ABG O2 Saturation ABG Base Excess ABG Oxyhemoglobin ABG Sodium ABG Chloride ABG Glucose Oxyhemoglobin Carboxyhemoglobin Sodium Potassium Chloride 93.9 L Carbon Dioxide 44 H* BUN Creatinine < 0.2 L Glucose 149 H POC Glucose 131 H Hemoglobin A1c Magnesium Ferritin AST ALT Alkaline Phosphatase Lactate Dehydrogenase C-Reactive Protein Total Protein Albumin Arterial Blood Glucose Coronavirus (PCR) 07/23/21 07/23/21 07/23/21 07:20 11:34 16:11 WBC MCV MCH MCHC RDW Lymph % (Auto) [place] % (Auto) Eos % (Auto) Lymph # (Auto) [place] # (Auto) Eos # (Auto) Baso # (Auto) Seg Neutrophils % Seg Neuts % (Manual) Lymphocytes % (Manual) Seg Neutrophils # Seg Neutrophils # Man Lymphocytes # (Manual) D-Dimer ABG pH POC ABG pCO2 POC ABG pO2 ABG pO2 ABG HCO3 ABG O2 Saturation ABG Base Excess ABG Oxyhemoglobin ABG Sodium ABG Chloride ABG Glucose Oxyhemoglobin Carboxyhemoglobin Sodium Potassium Chloride Carbon Dioxide BUN Creatinine Glucose POC Glucose 116 H 172 H 110 H Hemoglobin A1c Magnesium Ferritin AST ALT Alkaline Phosphatase Lactate Dehydrogenase C-Reactive Protein Total Protein Albumin Arterial Blood Glucose Coronavirus (PCR) 07/23/21 07/23/21 07/24/21 18:11 21:33 04:10 WBC MCV MCH MCHC RDW Lymph % (Auto) [place] % (Auto) Eos % (Auto) Lymph # (Auto) [place] # (Auto) Eos # (Auto) Baso # (Auto) Seg Neutrophils % Seg Neuts % (Manual) Lymphocytes % (Manual) Seg Neutrophils # Seg Neutrophils # Man Lymphocytes # (Manual) D-Dimer ABG pH POC ABG pCO2 78.3 H POC ABG pO2 80.7 L ABG pO2 ABG HCO3 ABG O2 Saturation ABG Base Excess ABG Oxyhemoglobin ABG Sodium 134.9 L ABG Chloride 89.0 L ABG Glucose 200 H Oxyhemoglobin Carboxyhemoglobin Sodium Potassium 3.5 L D Chloride 92.4 L Carbon Dioxide 42 H* BUN Creatinine < 0.2 L Glucose 123 H POC Glucose 108 H Hemoglobin A1c Magnesium Ferritin AST ALT Alkaline Phosphatase Lactate Dehydrogenase C-Reactive Protein Total Protein Albumin Arterial Blood Glucose 200 H Coronavirus (PCR) 07/24/21 07/24/21 07/24/21 11:01 16:56 22:06 WBC MCV MCH MCHC RDW Lymph % (Auto) [place] % (Auto) Eos % (Auto) Lymph # (Auto) [place] # (Auto) Eos # (Auto) Baso # (Auto) Seg Neutrophils % Seg Neuts % (Manual) Lymphocytes % (Manual) Seg Neutrophils # Seg Neutrophils # Man Lymphocytes # (Manual) D-Dimer ABG pH POC ABG pCO2 POC ABG pO2 ABG pO2 ABG HCO3 ABG O2 Saturation ABG Base Excess ABG Oxyhemoglobin ABG Sodium ABG Chloride ABG Glucose Oxyhemoglobin Carboxyhemoglobin Sodium Potassium Chloride Carbon Dioxide BUN Creatinine Glucose POC Glucose 171 H 111 H 136 H Hemoglobin A1c Magnesium Ferritin AST ALT Alkaline Phosphatase Lactate Dehydrogenase C-Reactive Protein Total Protein Albumin Arterial Blood Glucose Coronavirus (PCR) 07/25/21 07/25/21 07/25/21 07:40 10:59 11:58 WBC MCV MCH MCHC RDW Lymph % (Auto) [place] % (Auto) Eos % (Auto) Lymph # (Auto) [place] # (Auto) Eos # (Auto) Baso # (Auto) Seg Neutrophils % Seg Neuts % (Manual) Lymphocytes % (Manual) Seg Neutrophils # Seg Neutrophils # Man Lymphocytes # (Manual) D-Dimer ABG pH POC ABG pCO2 POC ABG pO2 ABG pO2 ABG HCO3 ABG O2 Saturation ABG Base Excess ABG Oxyhemoglobin ABG Sodium ABG Chloride ABG Glucose Oxyhemoglobin Carboxyhemoglobin Sodium Potassium Chloride 88.6 L Carbon Dioxide 43 H* BUN Creatinine 0.2 L Glucose 180 H POC Glucose 120 H 153 H Hemoglobin A1c Magnesium Ferritin AST ALT Alkaline Phosphatase Lactate Dehydrogenase C-Reactive Protein Total Protein Albumin Arterial Blood Glucose Coronavirus (PCR) 07/25/21 07/25/21 07/26/21 16:03 20:18 09:56 WBC MCV MCH MCHC RDW Lymph % (Auto) [place] % (Auto) Eos % (Auto) Lymph # (Auto) [place] # (Auto) Eos # (Auto) Baso # (Auto) Seg Neutrophils % Seg Neuts % (Manual) Lymphocytes % (Manual) Seg Neutrophils # Seg Neutrophils # Man Lymphocytes # (Manual) D-Dimer ABG pH POC ABG pCO2 POC ABG pO2 ABG pO2 ABG HCO3 ABG O2 Saturation ABG Base Excess ABG Oxyhemoglobin ABG Sodium ABG Chloride ABG Glucose Oxyhemoglobin Carboxyhemoglobin Sodium Potassium Chloride 91.3 L Carbon Dioxide 45 H* BUN Creatinine < 0.2 L Glucose 128 H POC Glucose 143 H 133 H Hemoglobin A1c Magnesium Ferritin AST ALT Alkaline Phosphatase Lactate Dehydrogenase C-Reactive Protein Total Protein Albumin 3.2 L Arterial Blood Glucose Coronavirus (PCR) 07/26/21 07/26/21 07/27/21 17:56 21:24 07:10 WBC MCV MCH MCHC RDW Lymph % (Auto) [place] % (Auto) Eos % (Auto) Lymph # (Auto) [place] # (Auto) Eos # (Auto) Baso # (Auto) Seg Neutrophils % Seg Neuts % (Manual) Lymphocytes % (Manual) Seg Neutrophils # Seg Neutrophils # Man Lymphocytes # (Manual) D-Dimer ABG pH POC ABG pCO2 POC ABG pO2 ABG pO2 ABG HCO3 ABG O2 Saturation ABG Base Excess ABG Oxyhemoglobin ABG Sodium ABG Chloride ABG Glucose Oxyhemoglobin Carboxyhemoglobin Sodium Potassium Chloride Carbon Dioxide BUN Creatinine Glucose POC Glucose 170 H 122 H 119 H Hemoglobin A1c Magnesium Ferritin AST ALT Alkaline Phosphatase Lactate Dehydrogenase C-Reactive Protein Total Protein Albumin Arterial Blood Glucose Coronavirus (PCR) 07/27/21 07/27/21 07/28/21 11:44 21:31 07:30 WBC MCV MCH MCHC RDW Lymph % (Auto) [place] % (Auto) Eos % (Auto) Lymph # (Auto) [place] # (Auto) Eos # (Auto) Baso # (Auto) Seg Neutrophils % Seg Neuts % (Manual) Lymphocytes % (Manual) Seg Neutrophils # Seg Neutrophils # Man Lymphocytes # (Manual) D-Dimer ABG pH POC ABG pCO2 POC ABG pO2 ABG pO2 ABG HCO3 ABG O2 Saturation ABG Base Excess ABG Oxyhemoglobin ABG Sodium ABG Chloride ABG Glucose Oxyhemoglobin Carboxyhemoglobin Sodium Potassium 3.4 L D Chloride 91.4 L Carbon Dioxide 39 H BUN Creatinine < 0.2 L Glucose 140 H POC Glucose 176 H 162 H Hemoglobin A1c Magnesium Ferritin AST ALT Alkaline Phosphatase Lactate Dehydrogenase C-Reactive Protein Total Protein Albumin Arterial Blood Glucose Coronavirus (PCR) 07/28/21 07/28/21 07/28/21 08:43 12:25 16:40 WBC MCV MCH MCHC RDW Lymph % (Auto) [place] % (Auto) Eos % (Auto) Lymph # (Auto) [place] # (Auto) Eos # (Auto) Baso # (Auto) Seg Neutrophils % Seg Neuts % (Manual) Lymphocytes % (Manual) Seg Neutrophils # Seg Neutrophils # Man Lymphocytes # (Manual) D-Dimer ABG pH POC ABG pCO2 POC ABG pO2 ABG pO2 ABG HCO3 ABG O2 Saturation ABG Base Excess ABG Oxyhemoglobin ABG Sodium ABG Chloride ABG Glucose Oxyhemoglobin Carboxyhemoglobin Sodium Potassium Chloride Carbon Dioxide BUN Creatinine Glucose POC Glucose 122 H 162 H 234 H Hemoglobin A1c Magnesium Ferritin AST ALT Alkaline Phosphatase Lactate Dehydrogenase C-Reactive Protein Total Protein Albumin Arterial Blood Glucose Coronavirus (PCR) 07/28/21 07/29/21 21:27 04:40 WBC MCV MCH MCHC RDW Lymph % (Auto) [place] % (Auto) Eos % (Auto) Lymph # (Auto) [place] # (Auto) Eos # (Auto) Baso # (Auto) Seg Neutrophils % Seg Neuts % (Manual) Lymphocytes % (Manual) Seg Neutrophils # Seg Neutrophils # Man Lymphocytes # (Manual) D-Dimer ABG pH POC ABG pCO2 POC ABG pO2 ABG pO2 ABG HCO3 ABG O2 Saturation ABG Base Excess ABG Oxyhemoglobin ABG Sodium ABG Chloride ABG Glucose Oxyhemoglobin Carboxyhemoglobin Sodium Potassium 3.4 L Chloride 92.3 L Carbon Dioxide 40 H BUN Creatinine < 0.2 L Glucose 125 H POC Glucose 155 H Hemoglobin A1c Magnesium Ferritin AST ALT Alkaline Phosphatase Lactate Dehydrogenase C-Reactive Protein Total Protein Albumin Arterial Blood Glucose Coronavirus (PCR)
--- NOTE | 2021-07-29 14:28 | Vascular Lab Report ---
DUPLEX DOPPLER LOWER EXTREMITY VEINS, RIGHT INDICATION: RLE pain and swelling. TECHNIQUE: Duplex doppler imaging was performed through the veins of the right lower extremity using venous compression and other maneuvers. COMPARISON: No relevant prior imaging study available. FINDINGS: Right Common femoral vein: Negative. Right Superficial femoral vein: Negative. Right Popliteal vein: Negative. Right Calf veins: Negative. Additional findings: None. IMPRESSION: No sonographic evidence for DVT in the right lower extremity. Signer Name: Josh Santoyo Jr, MD Signed: 07/29/2021 2:23 PM Workstation Name: [id number]
[2021-07-29] MEDS ORDERED: POTASSIUM CHLORIDE ER 20 MEQ TAB PO SCH (18:00)
[2021-07-29] MEDS: ACETAMINOPHEN 325 MG TAB PO PRN (21:35)
[2021-07-29] MEDS: ENOXAPARIN 40 MG/0.4 ML INJ SUB-Q SCH (21:39)
[2021-07-30] MEDS: INSULIN LISPRO 100 UNIT/ML SUB-Q SCH ×5 (01:03→22:26)
[2021-07-30] MEDS: CHOLECALCIFEROL (VIT D3) 1000 UNIT (25 mcg) TAB PO SCH (09:19)
[2021-07-30] MEDS: ZINC SULFATE 220 MG CAP PO SCH ×2 (09:19→22:26)
[2021-07-30] MEDS: ALPRAZolam 1 MG TAB PO SCH ×2 (09:19→22:25)
[2021-07-30] MEDS: INSULIN GLARGINE 100 UNITS/ML SUB-Q SCH (09:19)
[2021-07-30] MEDS: ACETAMINOPHEN 325 MG TAB PO PRN (09:30)
--- NOTE | 2021-07-30 10:51 | Progress Note ---
Assessment and Plan 50 y/o female with acute respiratory failure secondary to COVID19 pneumonia. 07/30/21: Bipap QHS. Please document if patient is refusing this at night. Per nurse she has refused but RT documentation reflects that it was PRN and not needed. Prognosis is still guarded. 07/29/21: Continue to attempt to wean FiO2. Given fluctuations in oxygen requirements, ok with keeping in IMCU. consider using bipap therapy at night if patient will allow. Prognosis still remains guarded. Patient has been here 104 days. 07/21/21: Wean FiO2 as tolerated. Patient has never proned the entire 96 days she has been here. Will continue bipap at night. Hold on lasix again today. Prognosis remains guarded. Has finished steroids and all other experimental COVID drugs with minimal to no improvement. 07/20/21: Give patient a break off of bipap and attempt high flow nasal cannula today. Will feed. Suggest keeping bipap therapy at night. Monitor fluid balance and BP. May need more lasix. 07/19/21: This was not related to stopping steroids as hemodynamically she is stable. Her sats is very good on 90%, I dropped to 85 and will continue to wean. She speaks no kyrgyz and is very anxious. This adds to her work of breathing. COntinue to wean FiO2 as tolerated. Will give periodic breaks on bipap therapy. Guarded prognosis. 07/17/21: will stop steroids today. Hold on lasix given marginal blood pressure. Guarded prognosis. 07/15/21: Lasix today. Positive fluid balance all weekend based on I/O. Prone. Wean for sats >88% 07/12/21: Gave lasix 40mg IV again this am. Per charting yesterday was the first net negative day. Suggest PRN diuresis over the weekend as well. My partner is rounding but will likely see as needed. Continue to wean for sats >88% 07/11/21: Lasix 40mg IV this am. Attempt to prone if able. Attempt to achieve daily net negative state. Wean for sats >88%. Guarded prognosis. Will change prednisone to 5mg daily starting tomorrow. 07/09/21: Echo shows diastolic dysfunction. Will given an additional 40 of IV lasix today. Monitor daily and wean aggressively for sats >88% 07/08/21: Worsening CXR, Gave lasix yesterday and will give again today. Suggest checking echo, ekg. Prognosis is poor now with this change. 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 07/05/21: Will monitor over the weekend. Worst case scenario, may need to go back up to Prednisone 20 at least. Prone if able. Unsure why all of sudden oxygen requirement increasing. Will repeat CXR. 07/03/21: Down to 10 of prednisone. Will keep through the weekend and then drop to 5 on Thursday. PT/OT assessment if not done. Suggest maybe weaning flow now given FiO2 down to 50%. Prognosis is still guarded. 07/01/21: Will drop steroids to 10mg daily starting tomorrow. Wean for sats >88%. Prone. PT/OT should be seeing now that oxygen requirement is down more. 06/28/21: Continue to wean as tolerated. Will drop steroids down even further next week. Will see PRN over the weekend. 06/26/21: Will drop steroids down to 20 starting tomorrow. Prone. Continue to wean as tolerated. 06/24/21: Continue Pred, will drop to 20 daily tomorrow. Prone if able. Hopeful they can wean FiO2 more. May need to consider increasing flow for a while. 06/21/21: Continue pred at 40, will decrease likely Thursday/Thursday to 20 daily. Prone if able. Continue to wean as tolerated. Prognosis still remains guarded. 06/20/21: Will drop steroids down to 40 today. Proning. Continue to wean FiO2. 06/18/21: Wean Fio2 for sats >88%. Please encourage proning. Drop steroids down to 40 on . 06/14/21: Continue oral steroid therapy. Will do further weaning next week. Wean for sats >88% and prone as tolerated. Will see as needed over the weekend. 06/13/21: Will change to prednisone 60 daily starting tomorrow. Prone if able and wean for sats >88% 06/11/21: no new recs, will change to oral steroids tomorrow, continue to prone if able and wean for sats >88% 06/10/21: Will change to oral steroids on Thursday to begin prolonged taper 06/06/21: Continue to wean as tolerated, will drop steroids on tomorrow. 06/04/21: Clinically no change. Will drop steroids down the end of this week. 05/31/21: Clinically no change. Not eligible for LTACH. Encourage Proning. Will drop steroids down to 40 q8 05/29/21: No acute changes clinically. Still on HFNC but not really able to wean. Continue to encourage proning. Will drop steroids further on Thursday. 05/27/21: No improvement over the weekend but also no worsening. No other strategies to offer. Please continue to encourage patient to prone. I dropped steroids on yesterday. Will wean more later in the week. 05/24/21: No new recs again for today. Will see as needed over the weekend but follow chart peripherally for changes. 05/22/21: No new recs for today. Prognosis remains guarded. 05/21/21: Wean as tolerated. Prone if able. Guarded prognosis 05/20/21: COntinue current level of care. 05/17/21: Prone if possible. Wean FiO2 for sats >88%. Continue scheduled ativan. Prognosis is very very guarded. Unfunded so not a candidate for LTACH 05/16/21: Prone if willing. Wean FIO2 if patient will allow. Anxiety control. Pr ognosis still remains very guarded. 05/15/21: Not sure if MAR is accurate but may have only gotten one dose of scheduled anixolytic therapy. Continue proning as tolerated, and wean FiO2 and flow for sats >88%. Prognosi remains very very guarded to poor. 05/14/21: Will discontinue the buspar and make the ativan scheduled but will do q6 as oppose to q4 and attempt to leave parameters for nursing when not to give. If anxiety could be controlled, feel that patient could be weaned further. She has no funding so she is not a candidate for LTACH. Prone if possible. Guarded prognosis. This is her day. 05/13/21: Ordered buspar 10 BID to start with to help with anxiety. Please continue to wean FiO2 as tolerated. Will remind nurse that there is PRN ativan available. Continue higher doses of steroids. Prone if able. 05/12/21: Patient may need something longer acting for anxiety. Per chart has not gotten any ativan in days. Would be ok with either buspar or low dose klonopin bid. COntinue higher doses of steroids as patient seems to be responding. Prone if possible. 05/11/21: Continue high doses of steroids and continue to wean for sats >88%. Please encourage proning. 05/10/21: Will continue this dose of steroid at least through the weekend and assess for improvement. will speak with RT about aggressive weaning. Full dose anticoagulation continues. Very very guarded to poor prognosis. 05/09/21: Going to consider increasing steroids to 125q8, maybe as early as tomorrow. continue full dose anticoagulation. 05/08/21: Continue anticoagulation and steroids. Prone if possible. Anxiety control. No objection to CTA if this can happen. Very very guarded prognosis. 05/07/21: Spoke with IMS, not opposed to full dose anticoagulation. If patient goes back on NRB HFNC combo may need to consider restarting PPN again. Encourage proning. Guarded prognosis. 05/06/21: Continue to wean FiO2 and flow for sats >88%. Tolerating diet now so will stop PPN. Continue anxiety control. Continue IV steroids. Would not object to transfer to COVID floor if bed available. Not sure why she was titrated back up to 100% from 85 as all sats documented in the RT's notes were acceptable. Same for under vital signs as well. 05/03/21: Set back last night from yesterday. Continue bipap therapy for now and attempt HFNC maybe later this afternoon. Continue to use PRN ativan but may need to schedule as she likely took off mask from anxiety. Continue IV steroids. Hold on transfer to COVID Floor. 05/02/21: Continue to wean FiO2 as tolerated for sats >88%. Will continue bipap at night. Patient has no funding so not a candidate for LTACH. Given that she has been stable and not requiring the combo of HFNC and NRB, will consider moving to COVID floor. 05/01/21: Continue to wean FiO2 for sats >88%. A sat of 90 is more than acceptable and oxygen should not be increased for this unless patient desats and remains at a sat lower than 88. Bipap at night to give some form of relief and HFNC during the day. Currently on just this alone which is improvement. Ok with daily diuresis but must monitor renal function and BP closely. She was over diuresed last week and we ended up giving fluid back. Prognosis remains guarded. 04/30/21: Will start CLinimix today for nutritional support, without electrolytes. Check labs in am. Prone if able. Continue precedx for anxiety. Very very guarded prognosis. Attempting our best to not intubate. 04/29/21: Continue precedex. Continue IV solumedrol. Prone if able. Guarded prognosis. 04/28/21: Continue Precedex. Picc team attempting to place line now. Stable on Bipap. Ordered steroids IV solumedrol to start today. Prognosis remains guarded, still at very high risk for intubation. 04/27/21: Hypotension improving/improved. Hold on any further lasix dosing. Continue precedex to help with anxeity. later today please attempt HFNC with NRB if needed. Attempt to feed if possible. Steroids end today, please order solumedrol 40q8 to start tomorrow (04/28/21). guarded prognosis. 04/26/21: Hypotension today, most likely from precedex use and diuresis that I did the last several days. Will bolus again today. Consider midodrine if BP does not respond. 04/25/21: Lasix again today. Keep PRN ativan for now. Hold on precedex for now. Guarded prognosis. Labs ordered for tomorrow. 04/24/21: Lasix today. Will also start patient on low dose PRN ativan. If this does not help will then try precedex. Guarded prognosis. 04/23/21: Prone as tolerated. No lasix today. Continue decadron. Guarded prognosis. High risk for intubation and high mortality with intubation. 04/19/21: Prone as tolerated during the day and sleep prone at night. Continue IV remdesivir and steroids. Did get actemra. Guarded prognosis. 1. Daily net negative state 2. Prone if possible 3. IV remdesivir. 4. Should be a candidate for Actemra 5. IV steroids 6. Guarded Prognosis Subjective Date of service: 07/30/21 Principal diagnosis: Covid-19 Interval history: Had to be placed back on bipap this am secondary to tachypnea. Per nursing not anxious. Asleep now and resting comfortably with good sats. Remainder is negative. Objective Vital Signs - 12hr 07/29/21 07/30/21 07/30/21 23:00 00:00 01:00 Temperature 99.4 F Pulse Rate 111 H 108 H 103 H Respiratory 37 H 37 H 37 H Rate Blood Pressure 114/70 118/66 119/43 O2 Sat by Pulse 91 91 93 Oximetry 07/30/21 07/30/21 07/30/21 02:00 02:49 03:00 Temperature Pulse Rate 101 H 101 H Respiratory 35 H 33 H Rate Blood Pressure 110/53 115/62 O2 Sat by Pulse 95 95 Oximetry 07/30/21 07/30/21 07/30/21 04:00 05:00 06:00 Temperature 98.5 F Pulse Rate 101 H 99 H 100 H Respiratory 36 H 34 H 34 H Rate Blood Pressure 113/66 118/76 115/67 O2 Sat by Pulse 94 95 94 Oximetry 07/30/21 07/30/21 07/30/21 07:00 08:00 09:00 Temperature Pulse Rate 100 H 103 H 102 H Respiratory 33 H 37 H 31 H Rate Blood Pressure 118/68 118/68 122/63 O2 Sat by Pulse 95 94 96 Oximetry 07/30/21 10:00 Temperature Pulse Rate 105 H Respiratory 29 H Rate Blood Pressure 118/64 O2 Sat by Pulse 97 Oximetry Constitutional: no acute distress, alert, other (on hiflo o2) Eyes: non-icteric ENT: oropharynx moist Neck: supple Effort: normal Ascultation: Bilateral: diminished breath sounds Cardiovascular: regular rate and rhythm Gastrointestinal: normoactive bowel sounds, soft, non-tender, non-distended Integumentary: normal Extremities: no cyanosis, no edema, pink and warm Neurologic: non-focal exam, pupils equal and round Psychiatric: mood appropriate, affect normal CBC and BMP: 07/23/21 04:35 07/29/21 04:40 ABG, PT/INR, D-dimer: ABG ABG pH 7.417 (7.320-7.450) 07/23/21 18:11 POC ABG pCO2 78.3 mmHg (32.0-48.0) H 07/23/21 18:11 ABG pCO2 85.7 mm Hg 07/22/21 12:05 POC ABG pO2 80.7 mmHg (83-108) L 07/23/21 18:11 ABG pO2 66.1 mm Hg (80.0-90.0) L 07/22/21 12:05 POC ABG HCO3 49.3 07/23/21 18:11 ABG O2 Saturation 96.7 (0-100) 07/23/21 18:11 PT/INR, D-dimer D-Dimer 638.35 ng/mlDDU (0-234) H 07/09/21 04:45 Abnormal lab findings: Abnormal Labs 04/16/21 04/16/21 04/16/21 11:42 11:42 11:42 WBC MCV MCH MCHC RDW 16.1 H Lymph % (Auto) 7.8 L [place] % (Auto) Eos % (Auto) Lymph # (Auto) 0.8 L [place] # (Auto) Eos # (Auto) Baso # (Auto) Seg Neutrophils % 87.7 H Seg Neuts % (Manual) Lymphocytes % (Manual) Seg Neutrophils # 8.5 H Seg Neutrophils # Man Lymphocytes # (Manual) D-Dimer 338.70 H ABG pH POC ABG pCO2 POC ABG pO2 ABG pO2 ABG HCO3 ABG O2 Saturation ABG Base Excess ABG Oxyhemoglobin ABG Sodium ABG Chloride ABG Glucose Oxyhemoglobin Carboxyhemoglobin Sodium Potassium Chloride Carbon Dioxide BUN Creatinine Glucose 194 H POC Glucose Hemoglobin A1c Magnesium Ferritin AST ALT Alkaline Phosphatase Lactate Dehydrogenase C-Reactive Protein Total Protein 8.4 H Albumin 3.8 L Arterial Blood Glucose Coronavirus (PCR) 04/16/21 04/16/21 04/17/21 11:42 11:42 03:50 WBC MCV MCH MCHC RDW 16.0 H Lymph % (Auto) 7.7 L [place] % (Auto) Eos % (Auto) Lymph # (Auto) 0.6 L [place] # (Auto) Eos # (Auto) Baso # (Auto) Seg Neutrophils % 89.8 H Seg Neuts % (Manual) Lymphocytes % (Manual) Seg Neutrophils # Seg Neutrophils # Man Lymphocytes # (Manual) D-Dimer ABG pH POC ABG pCO2 POC ABG pO2 ABG pO2 ABG HCO3 ABG O2 Saturation ABG Base Excess ABG Oxyhemoglobin ABG Sodium ABG Chloride ABG Glucose Oxyhemoglobin Carboxyhemoglobin Sodium Potassium Chloride Carbon Dioxide BUN Creatinine Glucose 195 H POC Glucose Hemoglobin A1c Magnesium Ferritin 254.3 H AST ALT Alkaline Phosphatase Lactate Dehydrogenase 359 H C-Reactive Protein 15.20 H Total Protein Albumin Arterial Blood Glucose Coronavirus (PCR) 04/17/21 04/17/21 04/17/21 03:50 08:26 08:26 WBC MCV MCH MCHC RDW Lymph % (Auto) [place] % (Auto) Eos % (Auto) Lymph # (Auto) [place] # (Auto) Eos # (Auto) Baso # (Auto) Seg Neutrophils % Seg Neuts % (Manual) Lymphocytes % (Manual) Seg Neutrophils # Seg Neutrophils # Man Lymphocytes # (Manual) D-Dimer 262.48 H ABG pH POC ABG pCO2 POC ABG pO2 ABG pO2 ABG HCO3 ABG O2 Saturation ABG Base Excess ABG Oxyhemoglobin ABG Sodium ABG Chloride ABG Glucose Oxyhemoglobin Carboxyhemoglobin Sodium Potassium Chloride Carbon Dioxide BUN 20 H Creatinine 0.5 L Glucose 249 H 225 H POC Glucose Hemoglobin A1c Magnesium Ferritin AST ALT Alkaline Phosphatase Lactate Dehydrogenase 338 H C-Reactive Protein 17.20 H Total Protein Albumin 3.2 L Arterial Blood Glucose Coronavirus (PCR) 04/17/21 04/17/21 04/17/21 08:26 15:04 Unknown WBC MCV MCH MCHC RDW Lymph % (Auto) [place] % (Auto) Eos % (Auto) Lymph # (Auto) [place] # (Auto) Eos # (Auto) Baso # (Auto) Seg Neutrophils % Seg Neuts % (Manual) Lymphocytes % (Manual) Seg Neutrophils # Seg Neutrophils # Man Lymphocytes # (Manual) D-Dimer ABG pH POC ABG pCO2 POC ABG pO2 ABG pO2 ABG HCO3 ABG O2 Saturation ABG Base Excess ABG Oxyhemoglobin ABG Sodium ABG Chloride ABG Glucose Oxyhemoglobin Carboxyhemoglobin Sodium Potassium Chloride Carbon Dioxide BUN 20 H Creatinine 0.5 L Glucose 246 H POC Glucose Hemoglobin A1c Magnesium Ferritin 392.0 H AST ALT Alkaline Phosphatase Lactate Dehydrogenase C-Reactive Protein Total Protein 8.3 H Albumin 3.1 L Arterial Blood Glucose Coronavirus (PCR) Positive A 04/18/21 04/18/21 04/18/21 05:06 05:06 07:36 WBC 11.6 H MCV MCH MCHC RDW 16.1 H Lymph % (Auto) [place] % (Auto) Eos % (Auto) Lymph # (Auto) [place] # (Auto) Eos # (Auto) Baso # (Auto) Seg Neutrophils % Seg Neuts % (Manual) Lymphocytes % (Manual) Seg Neutrophils # Seg Neutrophils # Man Lymphocytes # (Manual) D-Dimer ABG pH POC ABG pCO2 POC ABG pO2 ABG pO2 ABG HCO3 ABG O2 Saturation ABG Base Excess ABG Oxyhemoglobin ABG Sodium ABG Chloride ABG Glucose Oxyhemoglobin Carboxyhemoglobin Sodium Potassium 5.2 H Chloride Carbon Dioxide BUN 22 H Creatinine 0.5 L Glucose 315 H POC Glucose Hemoglobin A1c 8.5 H Magnesium Ferritin AST ALT Alkaline Phosphatase Lactate Dehydrogenase C-Reactive Protein Total Protein Albumin 3.3 L Arterial Blood Glucose Coronavirus (PCR) 04/18/21 04/18/21 04/18/21 11:59 16:43 23:24 WBC MCV MCH MCHC RDW Lymph % (Auto) [place] % (Auto) Eos % (Auto) Lymph # (Auto) [place] # (Auto) Eos # (Auto) Baso # (Auto) Seg Neutrophils % Seg Neuts % (Manual) Lymphocytes % (Manual) Seg Neutrophils # Seg Neutrophils # Man Lymphocytes # (Manual) D-Dimer ABG pH POC ABG pCO2 POC ABG pO2 ABG pO2 ABG HCO3 ABG O2 Saturation ABG Base Excess ABG Oxyhemoglobin ABG Sodium ABG Chloride ABG Glucose Oxyhemoglobin Carboxyhemoglobin Sodium Potassium Chloride Carbon Dioxide BUN Creatinine Glucose POC Glucose 284 H 273 H 290 H Hemoglobin A1c Magnesium Ferritin AST ALT Alkaline Phosphatase Lactate Dehydrogenase C-Reactive Protein Total Protein Albumin Arterial Blood Glucose Coronavirus (PCR) 04/19/21 04/19/21 04/19/21 04:19 04:19 08:10 WBC MCV MCH MCHC RDW 15.7 H Lymph % (Auto) [place] % (Auto) Eos % (Auto) Lymph # (Auto) [place] # (Auto) Eos # (Auto) Baso # (Auto) Seg Neutrophils % Seg Neuts % (Manual) Lymphocytes % (Manual) Seg Neutrophils # Seg Neutrophils # Man Lymphocytes # (Manual) D-Dimer ABG pH POC ABG pCO2 POC ABG pO2 ABG pO2 ABG HCO3 ABG O2 Saturation ABG Base Excess ABG Oxyhemoglobin ABG Sodium ABG Chloride ABG Glucose Oxyhemoglobin Carboxyhemoglobin Sodium Potassium Chloride Carbon Dioxide BUN 27 H Creatinine 0.4 L Glucose 184 H POC Glucose 194 H Hemoglobin A1c Magnesium Ferritin AST ALT Alkaline Phosphatase Lactate Dehydrogenase C-Reactive Protein Total Protein Albumin 3.1 L Arterial Blood Glucose Coronavirus (PCR) 04/19/21 04/19/21 04/19/21 11:38 16:25 22:04 WBC MCV MCH MCHC RDW Lymph % (Auto) [place] % (Auto) Eos % (Auto) Lymph # (Auto) [place] # (Auto) Eos # (Auto) Baso # (Auto) Seg Neutrophils % Seg Neuts % (Manual) Lymphocytes % (Manual) Seg Neutrophils # Seg Neutrophils # Man Lymphocytes # (Manual) D-Dimer ABG pH POC ABG pCO2 POC ABG pO2 ABG pO2 ABG HCO3 ABG O2 Saturation ABG Base Excess ABG Oxyhemoglobin ABG Sodium ABG Chloride ABG Glucose Oxyhemoglobin Carboxyhemoglobin Sodium Potassium Chloride Carbon Dioxide BUN Creatinine Glucose POC Glucose 224 H 297 H 251 H Hemoglobin A1c Magnesium Ferritin AST ALT Alkaline Phosphatase Lactate Dehydrogenase C-Reactive Protein Total Protein Albumin Arterial Blood Glucose Coronavirus (PCR) 04/20/21 04/20/21 04/20/21 05:28 08:43 16:21 WBC MCV MCH MCHC RDW Lymph % (Auto) [place] % (Auto) Eos % (Auto) Lymph # (Auto) [place] # (Auto) Eos # (Auto) Baso # (Auto) Seg Neutrophils % Seg Neuts % (Manual) Lymphocytes % (Manual) Seg Neutrophils # Seg Neutrophils # Man Lymphocytes # (Manual) D-Dimer ABG pH POC ABG pCO2 POC ABG pO2 ABG pO2 ABG HCO3 ABG O2 Saturation ABG Base Excess ABG Oxyhemoglobin ABG Sodium ABG Chloride ABG Glucose Oxyhemoglobin Carboxyhemoglobin Sodium Potassium Chloride Carbon Dioxide BUN 27 H Creatinine Glucose 192 H POC Glucose 173 H 253 H Hemoglobin A1c Magnesium Ferritin AST ALT Alkaline Phosphatase Lactate Dehydrogenase C-Reactive Protein Total Protein Albumin 3.0 L Arterial Blood Glucose Coronavirus (PCR) 04/21/21 04/21/21 04/21/21 07:58 12:05 16:08 WBC MCV MCH MCHC RDW Lymph % (Auto) [place] % (Auto) Eos % (Auto) Lymph # (Auto) [place] # (Auto) Eos # (Auto) Baso # (Auto) Seg Neutrophils % Seg Neuts % (Manual) Lymphocytes % (Manual) Seg Neutrophils # Seg Neutrophils # Man Lymphocytes # (Manual) D-Dimer ABG pH POC ABG pCO2 POC ABG pO2 ABG pO2 ABG HCO3 ABG O2 Saturation ABG Base Excess ABG Oxyhemoglobin ABG Sodium ABG Chloride ABG Glucose Oxyhemoglobin Carboxyhemoglobin Sodium Potassium Chloride Carbon Dioxide BUN Creatinine Glucose POC Glucose 140 H 252 H 214 H Hemoglobin A1c Magnesium Ferritin AST ALT Alkaline Phosphatase Lactate Dehydrogenase C-Reactive Protein Total Protein Albumin Arterial Blood Glucose Coronavirus (PCR) 04/21/21 04/22/21 04/22/21 21:42 08:37 12:01 WBC MCV MCH MCHC RDW Lymph % (Auto) [place] % (Auto) Eos % (Auto) Lymph # (Auto) [place] # (Auto) Eos # (Auto) Baso # (Auto) Seg Neutrophils % Seg Neuts % (Manual) Lymphocytes % (Manual) Seg Neutrophils # Seg Neutrophils # Man Lymphocytes # (Manual) D-Dimer ABG pH 7.457 H POC ABG pCO2 POC ABG pO2 49.4 L ABG pO2 ABG HCO3 ABG O2 Saturation ABG Base Excess ABG Oxyhemoglobin 85.6 L ABG Sodium ABG Chloride ABG Glucose 121 H Oxyhemoglobin Carboxyhemoglobin 0.3 L Sodium Potassium Chloride Carbon Dioxide BUN Creatinine Glucose POC Glucose 162 H 227 H Hemoglobin A1c Magnesium Ferritin AST ALT Alkaline Phosphatase Lactate Dehydrogenase C-Reactive Protein Total Protein Albumin Arterial Blood Glucose 121 H Coronavirus (PCR) 04/22/21 04/22/21 04/23/21 16:26 22:23 04:52 WBC MCV MCH MCHC RDW 15.7 H Lymph % (Auto) [place] % (Auto) Eos % (Auto) Lymph # (Auto) [place] # (Auto) Eos # (Auto) Baso # (Auto) Seg Neutrophils % Seg Neuts % (Manual) Lymphocytes % (Manual) Seg Neutrophils # Seg Neutrophils # Man Lymphocytes # (Manual) D-Dimer ABG pH POC ABG pCO2 POC ABG pO2 ABG pO2 ABG HCO3 ABG O2 Saturation ABG Base Excess ABG Oxyhemoglobin ABG Sodium ABG Chloride ABG Glucose Oxyhemoglobin Carboxyhemoglobin Sodium Potassium Chloride Carbon Dioxide BUN Creatinine Glucose POC Glucose 200 H 136 H Hemoglobin A1c Magnesium Ferritin AST ALT Alkaline Phosphatase Lactate Dehydrogenase C-Reactive Protein Total Protein Albumin Arterial Blood Glucose Coronavirus (PCR) 04/23/21 04/23/21 04/23/21 04:52 12:06 17:41 WBC MCV MCH MCHC RDW Lymph % (Auto) [place] % (Auto) Eos % (Auto) Lymph # (Auto) [place] # (Auto) Eos # (Auto) Baso # (Auto) Seg Neutrophils % Seg Neuts % (Manual) Lymphocytes % (Manual) Seg Neutrophils # Seg Neutrophils # Man Lymphocytes # (Manual) D-Dimer ABG pH POC ABG pCO2 POC ABG pO2 ABG pO2 ABG HCO3 ABG O2 Saturation ABG Base Excess ABG Oxyhemoglobin ABG Sodium ABG Chloride ABG Glucose Oxyhemoglobin Carboxyhemoglobin Sodium 136 L Potassium Chloride 97.7 L Carbon Dioxide BUN 23 H Creatinine Glucose 101 H POC Glucose 202 H 169 H Hemoglobin A1c Magnesium Ferritin AST 46 H ALT Alkaline Phosphatase Lactate Dehydrogenase C-Reactive Protein Total Protein Albumin 3.3 L Arterial Blood Glucose Coronavirus (PCR) 04/23/21 04/24/21 04/24/21 23:08 05:17 08:38 WBC MCV MCH MCHC RDW Lymph % (Auto) [place] % (Auto) Eos % (Auto) Lymph # (Auto) [place] # (Auto) Eos # (Auto) Baso # (Auto) Seg Neutrophils % Seg Neuts % (Manual) Lymphocytes % (Manual) Seg Neutrophils # Seg Neutrophils # Man Lymphocytes # (Manual) D-Dimer ABG pH POC ABG pCO2 POC ABG pO2 ABG pO2 ABG HCO3 ABG O2 Saturation ABG Base Excess ABG Oxyhemoglobin ABG Sodium ABG Chloride ABG Glucose Oxyhemoglobin Carboxyhemoglobin Sodium Potassium Chloride Carbon Dioxide BUN Creatinine Glucose POC Glucose 111 H 108 H 126 H Hemoglobin A1c Magnesium Ferritin AST ALT Alkaline Phosphatase Lactate Dehydrogenase C-Reactive Protein Total Protein Albumin Arterial Blood Glucose Coronavirus (PCR) 04/24/21 04/24/21 04/24/21 11:54 17:57 21:23 WBC MCV MCH MCHC RDW Lymph % (Auto) [place] % (Auto) Eos % (Auto) Lymph # (Auto) [place] # (Auto) Eos # (Auto) Baso # (Auto) Seg Neutrophils % Seg Neuts % (Manual) Lymphocytes % (Manual) Seg Neutrophils # Seg Neutrophils # Man Lymphocytes # (Manual) D-Dimer ABG pH POC ABG pCO2 POC ABG pO2 ABG pO2 ABG HCO3 ABG O2 Saturation ABG Base Excess ABG Oxyhemoglobin ABG Sodium ABG Chloride ABG Glucose Oxyhemoglobin Carboxyhemoglobin Sodium Potassium Chloride Carbon Dioxide BUN Creatinine Glucose POC Glucose 147 H 177 H 138 H Hemoglobin A1c Magnesium Ferritin AST ALT Alkaline Phosphatase Lactate Dehydrogenase C-Reactive Protein Total Protein Albumin Arterial Blood Glucose Coronavirus (PCR) 04/25/21 04/25/21 04/25/21 07:06 11:23 15:43 WBC MCV MCH MCHC RDW Lymph % (Auto) [place] % (Auto) Eos % (Auto) Lymph # (Auto) [place] # (Auto) Eos # (Auto) Baso # (Auto) Seg Neutrophils % Seg Neuts % (Manual) Lymphocytes % (Manual) Seg Neutrophils # Seg Neutrophils # Man Lymphocytes # (Manual) D-Dimer ABG pH POC ABG pCO2 POC ABG pO2 ABG pO2 ABG HCO3 ABG O2 Saturation ABG Base Excess ABG Oxyhemoglobin ABG Sodium ABG Chloride ABG Glucose Oxyhemoglobin Carboxyhemoglobin Sodium Potassium Chloride Carbon Dioxide BUN Creatinine Glucose POC Glucose 147 H 169 H 227 H Hemoglobin A1c Magnesium Ferritin AST ALT Alkaline Phosphatase Lactate Dehydrogenase C-Reactive Protein Total Protein Albumin Arterial Blood Glucose Coronavirus (PCR) 04/25/21 04/26/21 04/26/21 21:22 02:45 05:15 WBC MCV MCH MCHC RDW Lymph % (Auto) [place] % (Auto) Eos % (Auto) Lymph # (Auto) [place] # (Auto) Eos # (Auto) Baso # (Auto) Seg Neutrophils % Seg Neuts % (Manual) Lymphocytes % (Manual) Seg Neutrophils # Seg Neutrophils # Man Lymphocytes # (Manual) D-Dimer ABG pH POC ABG pCO2 POC ABG pO2 70.7 L ABG pO2 ABG HCO3 ABG O2 Saturation ABG Base Excess ABG Oxyhemoglobin 93.0 L ABG Sodium 132.7 L ABG Chloride ABG Glucose 115 H Oxyhemoglobin Carboxyhemoglobin Sodium Potassium Chloride 95.8 L Carbon Dioxide 32 H BUN 20 H Creatinine Glucose 102 H POC Glucose 196 H Hemoglobin A1c Magnesium Ferritin AST ALT Alkaline Phosphatase Lactate Dehydrogenase C-Reactive Protein Total Protein Albumin Arterial Blood Glucose 115 H Coronavirus (PCR) 04/26/21 04/26/21 04/26/21 11:49 16:09 21:07 WBC MCV MCH MCHC RDW Lymph % (Auto) [place] % (Auto) Eos % (Auto) Lymph # (Auto) [place] # (Auto) Eos # (Auto) Baso # (Auto) Seg Neutrophils % Seg Neuts % (Manual) Lymphocytes % (Manual) Seg Neutrophils # Seg Neutrophils # Man Lymphocytes # (Manual) D-Dimer ABG pH POC ABG pCO2 POC ABG pO2 ABG pO2 ABG HCO3 ABG O2 Saturation ABG Base Excess ABG Oxyhemoglobin ABG Sodium ABG Chloride ABG Glucose Oxyhemoglobin Carboxyhemoglobin Sodium Potassium Chloride Carbon Dioxide BUN Creatinine Glucose POC Glucose 114 H 188 H 136 H Hemoglobin A1c Magnesium Ferritin AST ALT Alkaline Phosphatase Lactate Dehydrogenase C-Reactive Protein Total Protein Albumin Arterial Blood Glucose Coronavirus (PCR) 04/27/21 04/27/21 04/28/21 17:34 22:12 08:26 WBC MCV MCH MCHC RDW Lymph % (Auto) [place] % (Auto) Eos % (Auto) Lymph # (Auto) [place] # (Auto) Eos # (Auto) Baso # (Auto) Seg Neutrophils % Seg Neuts % (Manual) Lymphocytes % (Manual) Seg Neutrophils # Seg Neutrophils # Man Lymphocytes # (Manual) D-Dimer ABG pH POC ABG pCO2 POC ABG pO2 ABG pO2 ABG HCO3 ABG O2 Saturation ABG Base Excess ABG Oxyhemoglobin ABG Sodium ABG Chloride ABG Glucose Oxyhemoglobin Carboxyhemoglobin Sodium Potassium Chloride Carbon Dioxide BUN Creatinine Glucose POC Glucose 128 H 159 H 69 L Hemoglobin A1c Magnesium Ferritin AST ALT Alkaline Phosphatase Lactate Dehydrogenase C-Reactive Protein Total Protein Albumin Arterial Blood Glucose Coronavirus (PCR) 04/28/21 04/28/21 04/29/21 12:22 21:11 06:05 WBC MCV MCH MCHC RDW Lymph % (Auto) [place] % (Auto) Eos % (Auto) Lymph # (Auto) [place] # (Auto) Eos # (Auto) Baso # (Auto) Seg Neutrophils % Seg Neuts % (Manual) Lymphocytes % (Manual) Seg Neutrophils # Seg Neutrophils # Man Lymphocytes # (Manual) D-Dimer ABG pH POC ABG pCO2 POC ABG pO2 ABG pO2 ABG HCO3 ABG O2 Saturation ABG Base Excess ABG Oxyhemoglobin ABG Sodium ABG Chloride ABG Glucose Oxyhemoglobin Carboxyhemoglobin Sodium 132 L Potassium Chloride 94.4 L Carbon Dioxide BUN Creatinine 0.2 L D Glucose 140 H POC Glucose 141 H 171 H Hemoglobin A1c Magnesium Ferritin AST ALT Alkaline Phosphatase Lactate Dehydrogenase C-Reactive Protein Total Protein Albumin Arterial Blood Glucose Coronavirus (PCR) 04/29/21 04/29/21 04/29/21 06:05 07:24 11:36 WBC MCV MCH MCHC 35 H RDW 15.9 H Lymph % (Auto) [place] % (Auto) Eos % (Auto) Lymph # (Auto) [place] # (Auto) Eos # (Auto) Baso # (Auto) Seg Neutrophils % Seg Neuts % (Manual) Lymphocytes % (Manual) Seg Neutrophils # Seg Neutrophils # Man Lymphocytes # (Manual) D-Dimer ABG pH POC ABG pCO2 POC ABG pO2 ABG pO2 ABG HCO3 ABG O2 Saturation ABG Base Excess ABG Oxyhemoglobin ABG Sodium ABG Chloride ABG Glucose Oxyhemoglobin Carboxyhemoglobin Sodium Potassium Chloride Carbon Dioxide BUN Creatinine Glucose POC Glucose 141 H 220 H Hemoglobin A1c Magnesium Ferritin AST ALT Alkaline Phosphatase Lactate Dehydrogenase C-Reactive Protein Total Protein Albumin Arterial Blood Glucose Coronavirus (PCR) 04/29/21 04/29/21 04/29/21 14:23 15:30 17:06 WBC MCV MCH MCHC RDW Lymph % (Auto) [place] % (Auto) Eos % (Auto) Lymph # (Auto) [place] # (Auto) Eos # (Auto) Baso # (Auto) Seg Neutrophils % Seg Neuts % (Manual) Lymphocytes % (Manual) Seg Neutrophils # Seg Neutrophils # Man Lymphocytes # (Manual) D-Dimer ABG pH POC ABG pCO2 POC ABG pO2 ABG pO2 52.6 L ABG HCO3 ABG O2 Saturation 86.4 L ABG Base Excess ABG Oxyhemoglobin ABG Sodium ABG Chloride ABG Glucose Oxyhemoglobin 84.6 L Carboxyhemoglobin Sodium Potassium Chloride Carbon Dioxide BUN Creatinine Glucose POC Glucose 173 H 158 H Hemoglobin A1c Magnesium Ferritin AST ALT Alkaline Phosphatase Lactate Dehydrogenase C-Reactive Protein Total Protein Albumin Arterial Blood Glucose Coronavirus (PCR) 04/29/21 04/30/21 04/30/21 21:27 07:16 08:00 WBC MCV MCH MCHC RDW 16.1 H Lymph % (Auto) [place] % (Auto) Eos % (Auto) Lymph # (Auto) [place] # (Auto) Eos # (Auto) Baso # (Auto) Seg Neutrophils % Seg Neuts % (Manual) Lymphocytes % (Manual) Seg Neutrophils # Seg Neutrophils # Man Lymphocytes # (Manual) D-Dimer ABG pH POC ABG pCO2 POC ABG pO2 ABG pO2 ABG HCO3 ABG O2 Saturation ABG Base Excess ABG Oxyhemoglobin ABG Sodium ABG Chloride ABG Glucose Oxyhemoglobin Carboxyhemoglobin Sodium Potassium Chloride Carbon Dioxide BUN Creatinine Glucose POC Glucose 244 H 175 H Hemoglobin A1c Magnesium Ferritin AST ALT Alkaline Phosphatase Lactate Dehydrogenase C-Reactive Protein Total Protein Albumin Arterial Blood Glucose Coronavirus (PCR) 04/30/21 04/30/21 04/30/21 08:00 08:00 11:03 WBC MCV MCH MCHC RDW Lymph % (Auto) [place] % (Auto) Eos % (Auto) Lymph # (Auto) [place] # (Auto) Eos # (Auto) Baso # (Auto) Seg Neutrophils % Seg Neuts % (Manual) Lymphocytes % (Manual) Seg Neutrophils # Seg Neutrophils # Man Lymphocytes # (Manual) D-Dimer 1796.87 H ABG pH POC ABG pCO2 POC ABG pO2 ABG pO2 ABG HCO3 ABG O2 Saturation ABG Base Excess ABG Oxyhemoglobin ABG Sodium ABG Chloride ABG Glucose Oxyhemoglobin Carboxyhemoglobin Sodium 135 L Potassium Chloride 96.3 L Carbon Dioxide BUN Creatinine 0.2 L Glucose 153 H POC Glucose 183 H Hemoglobin A1c Magnesium Ferritin AST 41 H ALT 76 H Alkaline Phosphatase 160 H Lactate Dehydrogenase 522 H C-Reactive Protein Total Protein 6.1 L Albumin 3.1 L Arterial Blood Glucose Coronavirus (PCR) 04/30/21 04/30/21 05/01/21 17:04 22:17 05:39 WBC MCV MCH MCHC RDW Lymph % (Auto) [place] % (Auto) Eos % (Auto) Lymph # (Auto) [place] # (Auto) Eos # (Auto) Baso # (Auto) Seg Neutrophils % Seg Neuts % (Manual) Lymphocytes % (Manual) Seg Neutrophils # Seg Neutrophils # Man Lymphocytes # (Manual) D-Dimer ABG pH POC ABG pCO2 POC ABG pO2 ABG pO2 ABG HCO3 ABG O2 Saturation ABG Base Excess ABG Oxyhemoglobin ABG Sodium ABG Chloride ABG Glucose Oxyhemoglobin Carboxyhemoglobin Sodium 133 L Potassium Chloride 92.1 L Carbon Dioxide BUN 24 H Creatinine 0.4 L D Glucose 269 H POC Glucose 167 H 208 H Hemoglobin A1c Magnesium Ferritin AST ALT 66 H Alkaline Phosphatase 142 H Lactate Dehydrogenase C-Reactive Protein Total Protein Albumin 3.2 L Arterial Blood Glucose Coronavirus (PCR) 05/01/21 05/01/21 05/01/21 05:39 05:39 07:45 WBC MCV MCH MCHC RDW 16.0 H Lymph % (Auto) [place] % (Auto) Eos % (Auto) Lymph # (Auto) [place] # (Auto) Eos # (Auto) Baso # (Auto) Seg Neutrophils % Seg Neuts % (Manual) Lymphocytes % (Manual) Seg Neutrophils # Seg Neutrophils # Man Lymphocytes # (Manual) D-Dimer 3984.95 H ABG pH POC ABG pCO2 POC ABG pO2 ABG pO2 ABG HCO3 ABG O2 Saturation ABG Base Excess ABG Oxyhemoglobin ABG Sodium ABG Chloride ABG Glucose Oxyhemoglobin Carboxyhemoglobin Sodium Potassium Chloride Carbon Dioxide BUN Creatinine Glucose POC Glucose 229 H Hemoglobin A1c Magnesium Ferritin AST ALT Alkaline Phosphatase Lactate Dehydrogenase C-Reactive Protein Total Protein Albumin Arterial Blood Glucose Coronavirus (PCR) 05/01/21 05/01/21 05/01/21 12:10 15:46 21:06 WBC MCV MCH MCHC RDW Lymph % (Auto) [place] % (Auto) Eos % (Auto) Lymph # (Auto) [place] # (Auto) Eos # (Auto) Baso # (Auto) Seg Neutrophils % Seg Neuts % (Manual) Lymphocytes % (Manual) Seg Neutrophils # Seg Neutrophils # Man Lymphocytes # (Manual) D-Dimer ABG pH POC ABG pCO2 POC ABG pO2 ABG pO2 ABG HCO3 ABG O2 Saturation ABG Base Excess ABG Oxyhemoglobin ABG Sodium ABG Chloride ABG Glucose Oxyhemoglobin Carboxyhemoglobin Sodium Potassium Chloride Carbon Dioxide BUN Creatinine Glucose POC Glucose 296 H 279 H 232 H Hemoglobin A1c Magnesium Ferritin AST ALT Alkaline Phosphatase Lactate Dehydrogenase C-Reactive Protein Total Protein Albumin Arterial Blood Glucose Coronavirus (PCR) 05/02/21 05/02/21 05/02/21 04:55 04:55 04:55 WBC MCV MCH MCHC RDW 16.1 H Lymph % (Auto) [place] % (Auto) Eos % (Auto) Lymph # (Auto) [place] # (Auto) Eos # (Auto) Baso # (Auto) Seg Neutrophils % Seg Neuts % (Manual) Lymphocytes % (Manual) Seg Neutrophils # Seg Neutrophils # Man Lymphocytes # (Manual) D-Dimer 1401.08 H ABG pH POC ABG pCO2 POC ABG pO2 ABG pO2 ABG HCO3 ABG O2 Saturation ABG Base Excess ABG Oxyhemoglobin ABG Sodium ABG Chloride ABG Glucose Oxyhemoglobin Carboxyhemoglobin Sodium 131 L Potassium Chloride 95.5 L Carbon Dioxide BUN 20 H Creatinine 0.3 L Glucose 288 H POC Glucose Hemoglobin A1c Magnesium Ferritin AST ALT Alkaline Phosphatase Lactate Dehydrogenase C-Reactive Protein Total Protein 6.0 L Albumin 3.1 L Arterial Blood Glucose Coronavirus (PCR) 05/02/21 05/02/21 05/02/21 07:53 11:45 15:25 WBC MCV MCH MCHC RDW Lymph % (Auto) [place] % (Auto) Eos % (Auto) Lymph # (Auto) [place] # (Auto) Eos # (Auto) Baso # (Auto) Seg Neutrophils % Seg Neuts % (Manual) Lymphocytes % (Manual) Seg Neutrophils # Seg Neutrophils # Man Lymphocytes # (Manual) D-Dimer ABG pH POC ABG pCO2 POC ABG pO2 ABG pO2 ABG HCO3 ABG O2 Saturation ABG Base Excess ABG Oxyhemoglobin ABG Sodium ABG Chloride ABG Glucose Oxyhemoglobin Carboxyhemoglobin Sodium Potassium Chloride Carbon Dioxide BUN Creatinine Glucose POC Glucose 180 H 228 H 275 H Hemoglobin A1c Magnesium Ferritin AST ALT Alkaline Phosphatase Lactate Dehydrogenase C-Reactive Protein Total Protein Albumin Arterial Blood Glucose Coronavirus (PCR) 05/02/21 05/03/21 05/03/21 22:56 04:30 04:49 WBC MCV MCH MCHC RDW Lymph % (Auto) [place] % (Auto) Eos % (Auto) Lymph # (Auto) [place] # (Auto) Eos # (Auto) Baso # (Auto) Seg Neutrophils % Seg Neuts % (Manual) Lymphocytes % (Manual) Seg Neutrophils # Seg Neutrophils # Man Lymphocytes # (Manual) D-Dimer ABG pH 7.229 L POC ABG pCO2 POC ABG pO2 65.3 L ABG pO2 ABG HCO3 ABG O2 Saturation ABG Base Excess ABG Oxyhemoglobin 87.8 L ABG Sodium 133.0 L ABG Chloride 97.0 L ABG Glucose 403 H Oxyhemoglobin Carboxyhemoglobin Sodium 130 L Potassium Chloride 94.9 L Carbon Dioxide BUN 20 H Creatinine 0.5 L D Glucose 359 H POC Glucose 293 H Hemoglobin A1c Magnesium Ferritin AST 54 H ALT 75 H Alkaline Phosphatase 138 H Lactate Dehydrogenase C-Reactive Protein Total Protein Albumin 3.6 L Arterial Blood Glucose 403 H Coronavirus (PCR) 05/03/21 05/03/21 05/03/21 05:27 11:26 17:57 WBC MCV MCH MCHC RDW Lymph % (Auto) [place] % (Auto) Eos % (Auto) Lymph # (Auto) [place] # (Auto) Eos # (Auto) Baso # (Auto) Seg Neutrophils % Seg Neuts % (Manual) Lymphocytes % (Manual) Seg Neutrophils # Seg Neutrophils # Man Lymphocytes # (Manual) D-Dimer ABG pH POC ABG pCO2 POC ABG pO2 ABG pO2 ABG HCO3 ABG O2 Saturation ABG Base Excess ABG Oxyhemoglobin ABG Sodium ABG Chloride ABG Glucose Oxyhemoglobin Carboxyhemoglobin Sodium Potassium Chloride Carbon Dioxide BUN Creatinine Glucose POC Glucose 361 H 297 H 226 H Hemoglobin A1c Magnesium Ferritin AST ALT Alkaline Phosphatase Lactate Dehydrogenase C-Reactive Protein Total Protein Albumin Arterial Blood Glucose Coronavirus (PCR) 05/03/21 05/04/21 05/04/21 23:12 05:12 07:30 WBC MCV MCH MCHC RDW Lymph % (Auto) [place] % (Auto) Eos % (Auto) Lymph # (Auto) [place] # (Auto) Eos # (Auto) Baso # (Auto) Seg Neutrophils % Seg Neuts % (Manual) Lymphocytes % (Manual) Seg Neutrophils # Seg Neutrophils # Man Lymphocytes # (Manual) D-Dimer ABG pH POC ABG pCO2 POC ABG pO2 ABG pO2 ABG HCO3 ABG O2 Saturation ABG Base Excess ABG Oxyhemoglobin ABG Sodium ABG Chloride ABG Glucose Oxyhemoglobin Carboxyhemoglobin Sodium Potassium Chloride Carbon Dioxide BUN Creatinine Glucose POC Glucose 282 H 285 H 254 H Hemoglobin A1c Magnesium Ferritin AST ALT Alkaline Phosphatase Lactate Dehydrogenase C-Reactive Protein Total Protein Albumin Arterial Blood Glucose Coronavirus (PCR) 05/04/21 05/04/21 05/04/21 08:58 11:45 16:07 WBC MCV MCH MCHC RDW Lymph % (Auto) [place] % (Auto) Eos % (Auto) Lymph # (Auto) [place] # (Auto) Eos # (Auto) Baso # (Auto) Seg Neutrophils % Seg Neuts % (Manual) Lymphocytes % (Manual) Seg Neutrophils # Seg Neutrophils # Man Lymphocytes # (Manual) D-Dimer ABG pH POC ABG pCO2 POC ABG pO2 ABG pO2 ABG HCO3 ABG O2 Saturation ABG Base Excess ABG Oxyhemoglobin ABG Sodium ABG Chloride ABG Glucose Oxyhemoglobin Carboxyhemoglobin Sodium 134 L Potassium Chloride Carbon Dioxide BUN 20 H Creatinine 0.3 L Glucose 267 H POC Glucose 244 H 297 H Hemoglobin A1c Magnesium Ferritin AST ALT Alkaline Phosphatase Lactate Dehydrogenase C-Reactive Protein Total Protein 6.0 L Albumin 3.2 L Arterial Blood Glucose Coronavirus (PCR) 05/04/21 05/05/21 05/05/21 23:32 05:00 05:13 WBC MCV MCH MCHC RDW Lymph % (Auto) [place] % (Auto) Eos % (Auto) Lymph # (Auto) [place] # (Auto) Eos # (Auto) Baso # (Auto) Seg Neutrophils % Seg Neuts % (Manual) Lymphocytes % (Manual) Seg Neutrophils # Seg Neutrophils # Man Lymphocytes # (Manual) D-Dimer ABG pH POC ABG pCO2 POC ABG pO2 ABG pO2 ABG HCO3 ABG O2 Saturation ABG Base Excess ABG Oxyhemoglobin ABG Sodium ABG Chloride ABG Glucose Oxyhemoglobin Carboxyhemoglobin Sodium 132 L Potassium Chloride 96.4 L Carbon Dioxide BUN 22 H Creatinine 0.3 L Glucose 228 H POC Glucose 154 H 260 H Hemoglobin A1c Magnesium Ferritin AST ALT 67 H Alkaline Phosphatase Lactate Dehydrogenase C-Reactive Protein Total Protein 6.1 L Albumin 3.2 L Arterial Blood Glucose Coronavirus (PCR) 05/05/21 05/05/21 05/05/21 11:32 17:49 23:07 WBC MCV MCH MCHC RDW Lymph % (Auto) [place] % (Auto) Eos % (Auto) Lymph # (Auto) [place] # (Auto) Eos # (Auto) Baso # (Auto) Seg Neutrophils % Seg Neuts % (Manual) Lymphocytes % (Manual) Seg Neutrophils # Seg Neutrophils # Man Lymphocytes # (Manual) D-Dimer ABG pH POC ABG pCO2 POC ABG pO2 ABG pO2 ABG HCO3 ABG O2 Saturation ABG Base Excess ABG Oxyhemoglobin ABG Sodium ABG Chloride ABG Glucose Oxyhemoglobin Carboxyhemoglobin Sodium Potassium Chloride Carbon Dioxide BUN Creatinine Glucose POC Glucose 279 H 308 H 213 H Hemoglobin A1c Magnesium Ferritin AST ALT Alkaline Phosphatase Lactate Dehydrogenase C-Reactive Protein Total Protein Albumin Arterial Blood Glucose Coronavirus (PCR) 05/06/21 05/06/21 05/06/21 05:00 05:00 05:20 WBC MCV MCH MCHC RDW 16.8 H Lymph % (Auto) [place] % (Auto) Eos % (Auto) Lymph # (Auto) [place] # (Auto) Eos # (Auto) Baso # (Auto) Seg Neutrophils % Seg Neuts % (Manual) 99.0 H Lymphocytes % (Manual) Seg Neutrophils # Seg Neutrophils # Man 10.9 H Lymphocytes # (Manual) 0.0 L D-Dimer ABG pH POC ABG pCO2 POC ABG pO2 ABG pO2 ABG HCO3 ABG O2 Saturation ABG Base Excess ABG Oxyhemoglobin ABG Sodium ABG Chloride ABG Glucose Oxyhemoglobin Carboxyhemoglobin Sodium 133 L Potassium Chloride Carbon Dioxide BUN 21 H Creatinine 0.3 L Glucose 259 H POC Glucose 308 H Hemoglobin A1c Magnesium Ferritin AST ALT Alkaline Phosphatase Lactate Dehydrogenase C-Reactive Protein Total Protein Albumin 3.2 L Arterial Blood Glucose Coronavirus (PCR) 05/06/21 05/06/21 05/06/21 11:24 17:54 21:32 WBC MCV MCH MCHC RDW Lymph % (Auto) [place] % (Auto) Eos % (Auto) Lymph # (Auto) [place] # (Auto) Eos # (Auto) Baso # (Auto) Seg Neutrophils % Seg Neuts % (Manual) Lymphocytes % (Manual) Seg Neutrophils # Seg Neutrophils # Man Lymphocytes # (Manual) D-Dimer ABG pH POC ABG pCO2 POC ABG pO2 ABG pO2 ABG HCO3 ABG O2 Saturation ABG Base Excess ABG Oxyhemoglobin ABG Sodium ABG Chloride ABG Glucose Oxyhemoglobin Carboxyhemoglobin Sodium Potassium Chloride Carbon Dioxide BUN Creatinine Glucose POC Glucose 262 H 124 H 246 H Hemoglobin A1c Magnesium Ferritin AST ALT Alkaline Phosphatase Lactate Dehydrogenase C-Reactive Protein Total Protein Albumin Arterial Blood Glucose Coronavirus (PCR) 05/06/21 05/07/21 05/07/21 23:10 04:54 04:54 WBC MCV MCH MCHC RDW Lymph % (Auto) [place] % (Auto) Eos % (Auto) Lymph # (Auto) [place] # (Auto) Eos # (Auto) Baso # (Auto) Seg Neutrophils % Seg Neuts % (Manual) Lymphocytes % (Manual) Seg Neutrophils # Seg Neutrophils # Man Lymphocytes # (Manual) D-Dimer 1609.28 H ABG pH POC ABG pCO2 POC ABG pO2 ABG pO2 ABG HCO3 ABG O2 Saturation ABG Base Excess ABG Oxyhemoglobin ABG Sodium ABG Chloride ABG Glucose Oxyhemoglobin Carboxyhemoglobin Sodium 136 L Potassium Chloride Carbon Dioxide BUN 23 H Creatinine 0.3 L Glucose 110 H POC Glucose 249 H Hemoglobin A1c Magnesium Ferritin AST ALT Alkaline Phosphatase Lactate Dehydrogenase C-Reactive Protein Total Protein 6.2 L Albumin 3.0 L Arterial Blood Glucose Coronavirus (PCR) 05/07/21 05/07/21 05/07/21 04:54 04:54 11:41 WBC MCV MCH MCHC RDW Lymph % (Auto) [place] % (Auto) Eos % (Auto) Lymph # (Auto) [place] # (Auto) Eos # (Auto) Baso # (Auto) Seg Neutrophils % Seg Neuts % (Manual) Lymphocytes % (Manual) Seg Neutrophils # Seg Neutrophils # Man Lymphocytes # (Manual) D-Dimer ABG pH POC ABG pCO2 POC ABG pO2 ABG pO2 ABG HCO3 ABG O2 Saturation ABG Base Excess ABG Oxyhemoglobin ABG Sodium ABG Chloride ABG Glucose Oxyhemoglobin Carboxyhemoglobin Sodium Potassium Chloride Carbon Dioxide BUN Creatinine Glucose POC Glucose 118 H Hemoglobin A1c Magnesium Ferritin 296.1 H AST ALT Alkaline Phosphatase Lactate Dehydrogenase 724 H C-Reactive Protein Total Protein Albumin Arterial Blood Glucose Coronavirus (PCR) 05/07/21 05/07/21 05/08/21 16:43 22:34 06:44 WBC MCV MCH MCHC RDW Lymph % (Auto) [place] % (Auto) Eos % (Auto) Lymph # (Auto) [place] # (Auto) Eos # (Auto) Baso # (Auto) Seg Neutrophils % Seg Neuts % (Manual) Lymphocytes % (Manual) Seg Neutrophils # Seg Neutrophils # Man Lymphocytes # (Manual) D-Dimer ABG pH POC ABG pCO2 POC ABG pO2 ABG pO2 ABG HCO3 ABG O2 Saturation ABG Base Excess ABG Oxyhemoglobin ABG Sodium ABG Chloride ABG Glucose Oxyhemoglobin Carboxyhemoglobin Sodium Potassium Chloride Carbon Dioxide BUN Creatinine Glucose POC Glucose 159 H 233 H 235 H Hemoglobin A1c Magnesium Ferritin AST ALT Alkaline Phosphatase Lactate Dehydrogenase C-Reactive Protein Total Protein Albumin Arterial Blood Glucose Coronavirus (PCR) 05/08/21 05/08/21 05/08/21 07:49 11:56 17:13 WBC MCV MCH MCHC RDW Lymph % (Auto) [place] % (Auto) Eos % (Auto) Lymph # (Auto) [place] # (Auto) Eos # (Auto) Baso # (Auto) Seg Neutrophils % Seg Neuts % (Manual) Lymphocytes % (Manual) Seg Neutrophils # Seg Neutrophils # Man Lymphocytes # (Manual) D-Dimer ABG pH POC ABG pCO2 POC ABG pO2 ABG pO2 ABG HCO3 ABG O2 Saturation ABG Base Excess ABG Oxyhemoglobin ABG Sodium ABG Chloride ABG Glucose Oxyhemoglobin Carboxyhemoglobin Sodium Potassium Chloride Carbon Dioxide BUN Creatinine Glucose POC Glucose 219 H 184 H 182 H Hemoglobin A1c Magnesium Ferritin AST ALT Alkaline Phosphatase Lactate Dehydrogenase C-Reactive Protein Total Protein Albumin Arterial Blood Glucose Coronavirus (PCR) 05/08/21 05/09/21 05/09/21 23:35 05:20 05:20 WBC MCV MCH MCHC RDW Lymph % (Auto) [place] % (Auto) Eos % (Auto) Lymph # (Auto) [place] # (Auto) Eos # (Auto) Baso # (Auto) Seg Neutrophils % Seg Neuts % (Manual) Lymphocytes % (Manual) Seg Neutrophils # Seg Neutrophils # Man Lymphocytes # (Manual) D-Dimer 1003.87 H ABG pH POC ABG pCO2 POC ABG pO2 ABG pO2 ABG HCO3 ABG O2 Saturation ABG Base Excess ABG Oxyhemoglobin ABG Sodium ABG Chloride ABG Glucose Oxyhemoglobin Carboxyhemoglobin Sodium Potassium Chloride Carbon Dioxide BUN Creatinine Glucose POC Glucose 198 H Hemoglobin A1c Magnesium Ferritin 378.7 H AST ALT Alkaline Phosphatase Lactate Dehydrogenase C-Reactive Protein Total Protein Albumin Arterial Blood Glucose Coronavirus (PCR) 05/09/21 05/09/21 05/09/21 05:20 06:04 12:53 WBC MCV MCH MCHC RDW Lymph % (Auto) [place] % (Auto) Eos % (Auto) Lymph # (Auto) [place] # (Auto) Eos # (Auto) Baso # (Auto) Seg Neutrophils % Seg Neuts % (Manual) Lymphocytes % (Manual) Seg Neutrophils # Seg Neutrophils # Man Lymphocytes # (Manual) D-Dimer ABG pH POC ABG pCO2 POC ABG pO2 ABG pO2 ABG HCO3 ABG O2 Saturation ABG Base Excess ABG Oxyhemoglobin ABG Sodium ABG Chloride ABG Glucose Oxyhemoglobin Carboxyhemoglobin Sodium Potassium Chloride Carbon Dioxide BUN Creatinine Glucose POC Glucose 159 H 180 H Hemoglobin A1c Magnesium Ferritin AST ALT Alkaline Phosphatase Lactate Dehydrogenase 558 H C-Reactive Protein 2.40 H Total Protein Albumin Arterial Blood Glucose Coronavirus (PCR) 05/09/21 05/09/21 05/10/21 16:43 21:27 10:18 WBC MCV MCH MCHC RDW Lymph % (Auto) [place] % (Auto) Eos % (Auto) Lymph # (Auto) [place] # (Auto) Eos # (Auto) Baso # (Auto) Seg Neutrophils % Seg Neuts % (Manual) Lymphocytes % (Manual) Seg Neutrophils # Seg Neutrophils # Man Lymphocytes # (Manual) D-Dimer ABG pH POC ABG pCO2 POC ABG pO2 ABG pO2 ABG HCO3 ABG O2 Saturation ABG Base Excess ABG Oxyhemoglobin ABG Sodium ABG Chloride ABG Glucose Oxyhemoglobin Carboxyhemoglobin Sodium Potassium Chloride Carbon Dioxide BUN Creatinine Glucose POC Glucose 212 H 285 H 261 H Hemoglobin A1c Magnesium Ferritin AST ALT Alkaline Phosphatase Lactate Dehydrogenase C-Reactive Protein Total Protein Albumin Arterial Blood Glucose Coronavirus (PCR) 05/10/21 05/10/21 05/11/21 17:58 18:02 00:29 WBC MCV MCH MCHC RDW Lymph % (Auto) [place] % (Auto) Eos % (Auto) Lymph # (Auto) [place] # (Auto) Eos # (Auto) Baso # (Auto) Seg Neutrophils % Seg Neuts % (Manual) Lymphocytes % (Manual) Seg Neutrophils # Seg Neutrophils # Man Lymphocytes # (Manual) D-Dimer ABG pH POC ABG pCO2 POC ABG pO2 ABG pO2 ABG HCO3 ABG O2 Saturation ABG Base Excess ABG Oxyhemoglobin ABG Sodium ABG Chloride ABG Glucose Oxyhemoglobin Carboxyhemoglobin Sodium Potassium Chloride Carbon Dioxide BUN Creatinine Glucose POC Glucose 213 H 179 H 149 H Hemoglobin A1c Magnesium Ferritin AST ALT Alkaline Phosphatase Lactate Dehydrogenase C-Reactive Protein Total Protein Albumin Arterial Blood Glucose Coronavirus (PCR) 05/11/21 05/11/21 05/11/21 05:22 11:32 17:00 WBC 14.9 H MCV MCH MCHC RDW 18.9 H Lymph % (Auto) 4.9 L [place] % (Auto) Eos % (Auto) Lymph # (Auto) 0.7 L [place] # (Auto) Eos # (Auto) Baso # (Auto) 0.2 H Seg Neutrophils % Seg Neuts % (Manual) Lymphocytes % (Manual) Seg Neutrophils # 13.3 H Seg Neutrophils # Man Lymphocytes # (Manual) D-Dimer ABG pH POC ABG pCO2 POC ABG pO2 ABG pO2 ABG HCO3 ABG O2 Saturation ABG Base Excess ABG Oxyhemoglobin ABG Sodium ABG Chloride ABG Glucose Oxyhemoglobin Carboxyhemoglobin Sodium Potassium Chloride Carbon Dioxide BUN Creatinine Glucose POC Glucose 162 H 179 H Hemoglobin A1c Magnesium Ferritin AST ALT Alkaline Phosphatase Lactate Dehydrogenase C-Reactive Protein Total Protein Albumin Arterial Blood Glucose Coronavirus (PCR) 05/11/21 05/11/21 05/11/21 17:00 17:33 22:03 WBC MCV MCH MCHC RDW Lymph % (Auto) [place] % (Auto) Eos % (Auto) Lymph # (Auto) [place] # (Auto) Eos # (Auto) Baso # (Auto) Seg Neutrophils % Seg Neuts % (Manual) Lymphocytes % (Manual) Seg Neutrophils # Seg Neutrophils # Man Lymphocytes # (Manual) D-Dimer ABG pH POC ABG pCO2 POC ABG pO2 ABG pO2 ABG HCO3 ABG O2 Saturation ABG Base Excess ABG Oxyhemoglobin ABG Sodium ABG Chloride ABG Glucose Oxyhemoglobin Carboxyhemoglobin Sodium 135 L Potassium Chloride 97.3 L Carbon Dioxide BUN 21 H Creatinine 0.3 L Glucose 133 H POC Glucose 140 H 282 H Hemoglobin A1c Magnesium Ferritin AST ALT 60 H Alkaline Phosphatase Lactate Dehydrogenase C-Reactive Protein Total Protein Albumin 3.1 L Arterial Blood Glucose Coronavirus (PCR) 05/12/21 05/12/21 05/12/21 04:05 04:05 04:05 WBC MCV MCH MCHC RDW 18.4 H Lymph % (Auto) [place] % (Auto) Eos % (Auto) Lymph # (Auto) [place] # (Auto) Eos # (Auto) Baso # (Auto) Seg Neutrophils % Seg Neuts % (Manual) 94.0 H Lymphocytes % (Manual) 4.0 L Seg Neutrophils # Seg Neutrophils # Man Lymphocytes # (Manual) 0.3 L D-Dimer ABG pH POC ABG pCO2 POC ABG pO2 ABG pO2 ABG HCO3 ABG O2 Saturation ABG Base Excess ABG Oxyhemoglobin ABG Sodium ABG Chloride ABG Glucose Oxyhemoglobin Carboxyhemoglobin Sodium 136 L Potassium Chloride Carbon Dioxide BUN 18 H Creatinine 0.2 L Glucose 142 H POC Glucose Hemoglobin A1c Magnesium Ferritin 350.7 H AST ALT Alkaline Phosphatase Lactate Dehydrogenase 546 H C-Reactive Protein Total Protein 6.1 L Albumin 3.0 L Arterial Blood Glucose Coronavirus (PCR) 05/12/21 05/12/21 05/12/21 05:11 11:17 16:27 WBC MCV MCH MCHC RDW Lymph % (Auto) [place] % (Auto) Eos % (Auto) Lymph # (Auto) [place] # (Auto) Eos # (Auto) Baso # (Auto) Seg Neutrophils % Seg Neuts % (Manual) Lymphocytes % (Manual) Seg Neutrophils # Seg Neutrophils # Man Lymphocytes # (Manual) D-Dimer ABG pH POC ABG pCO2 POC ABG pO2 ABG pO2 ABG HCO3 ABG O2 Saturation ABG Base Excess ABG Oxyhemoglobin ABG Sodium ABG Chloride ABG Glucose Oxyhemoglobin Carboxyhemoglobin Sodium Potassium Chloride Carbon Dioxide BUN Creatinine Glucose POC Glucose 152 H 190 H 261 H Hemoglobin A1c Magnesium Ferritin AST ALT Alkaline Phosphatase Lactate Dehydrogenase C-Reactive Protein Total Protein Albumin Arterial Blood Glucose Coronavirus (PCR) 05/12/21 05/13/21 05/13/21 20:55 11:08 21:41 WBC MCV MCH MCHC RDW Lymph % (Auto) [place] % (Auto) Eos % (Auto) Lymph # (Auto) [place] # (Auto) Eos # (Auto) Baso # (Auto) Seg Neutrophils % Seg Neuts % (Manual) Lymphocytes % (Manual) Seg Neutrophils # Seg Neutrophils # Man Lymphocytes # (Manual) D-Dimer ABG pH POC ABG pCO2 POC ABG pO2 ABG pO2 ABG HCO3 ABG O2 Saturation ABG Base Excess ABG Oxyhemoglobin ABG Sodium ABG Chloride ABG Glucose Oxyhemoglobin Carboxyhemoglobin Sodium Potassium Chloride Carbon Dioxide BUN Creatinine Glucose POC Glucose 231 H 106 H 174 H Hemoglobin A1c Magnesium Ferritin AST ALT Alkaline Phosphatase Lactate Dehydrogenase C-Reactive Protein Total Protein Albumin Arterial Blood Glucose Coronavirus (PCR) 05/14/21 05/14/21 05/14/21 00:53 02:23 06:06 WBC MCV MCH MCHC RDW Lymph % (Auto) [place] % (Auto) Eos % (Auto) Lymph # (Auto) [place] # (Auto) Eos # (Auto) Baso # (Auto) Seg Neutrophils % Seg Neuts % (Manual) Lymphocytes % (Manual) Seg Neutrophils # Seg Neutrophils # Man Lymphocytes # (Manual) D-Dimer ABG pH POC ABG pCO2 POC ABG pO2 ABG pO2 130.3 H ABG HCO3 30.6 H ABG O2 Saturation ABG Base Excess 4.9 H ABG Oxyhemoglobin ABG Sodium ABG Chloride ABG Glucose Oxyhemoglobin Carboxyhemoglobin Sodium Potassium Chloride Carbon Dioxide BUN Creatinine Glucose POC Glucose 229 H 119 H Hemoglobin A1c Magnesium Ferritin AST ALT Alkaline Phosphatase Lactate Dehydrogenase C-Reactive Protein Total Protein Albumin Arterial Blood Glucose Coronavirus (PCR) 05/14/21 05/14/21 05/14/21 07:13 07:13 07:13 WBC MCV MCH MCHC RDW Lymph % (Auto) [place] % (Auto) Eos % (Auto) Lymph # (Auto) [place] # (Auto) Eos # (Auto) Baso # (Auto) Seg Neutrophils % Seg Neuts % (Manual) Lymphocytes % (Manual) Seg Neutrophils # Seg Neutrophils # Man Lymphocytes # (Manual) D-Dimer 712.80 H ABG pH POC ABG pCO2 POC ABG pO2 ABG pO2 ABG HCO3 ABG O2 Saturation ABG Base Excess ABG Oxyhemoglobin ABG Sodium ABG Chloride ABG Glucose Oxyhemoglobin Carboxyhemoglobin Sodium 133 L Potassium Chloride 95.5 L Carbon Dioxide 32 H BUN Creatinine 0.2 L Glucose 137 H POC Glucose Hemoglobin A1c Magnesium Ferritin 283.5 H AST ALT 63 H Alkaline Phosphatase Lactate Dehydrogenase 563 H C-Reactive Protein Total Protein 6.1 L Albumin 3.0 L Arterial Blood Glucose Coronavirus (PCR) 05/14/21 05/14/21 05/14/21 12:21 15:33 21:50 WBC MCV MCH MCHC RDW Lymph % (Auto) [place] % (Auto) Eos % (Auto) Lymph # (Auto) [place] # (Auto) Eos # (Auto) Baso # (Auto) Seg Neutrophils % Seg Neuts % (Manual) Lymphocytes % (Manual) Seg Neutrophils # Seg Neutrophils # Man Lymphocytes # (Manual) D-Dimer ABG pH POC ABG pCO2 POC ABG pO2 ABG pO2 ABG HCO3 ABG O2 Saturation ABG Base Excess ABG Oxyhemoglobin ABG Sodium ABG Chloride ABG Glucose Oxyhemoglobin Carboxyhemoglobin Sodium Potassium Chloride Carbon Dioxide BUN Creatinine Glucose POC Glucose 143 H 204 H 202 H Hemoglobin A1c Magnesium Ferritin AST ALT Alkaline Phosphatase Lactate Dehydrogenase C-Reactive Protein Total Protein Albumin Arterial Blood Glucose Coronavirus (PCR) 05/15/21 05/15/21 05/15/21 05:05 11:12 16:39 WBC MCV MCH MCHC RDW Lymph % (Auto) [place] % (Auto) Eos % (Auto) Lymph # (Auto) [place] # (Auto) Eos # (Auto) Baso # (Auto) Seg Neutrophils % Seg Neuts % (Manual) Lymphocytes % (Manual) Seg Neutrophils # Seg Neutrophils # Man Lymphocytes # (Manual) D-Dimer ABG pH POC ABG pCO2 POC ABG pO2 ABG pO2 ABG HCO3 ABG O2 Saturation ABG Base Excess ABG Oxyhemoglobin ABG Sodium ABG Chloride ABG Glucose Oxyhemoglobin Carboxyhemoglobin Sodium Potassium Chloride Carbon Dioxide BUN Creatinine Glucose POC Glucose 125 H 201 H 241 H Hemoglobin A1c Magnesium Ferritin AST ALT Alkaline Phosphatase Lactate Dehydrogenase C-Reactive Protein Total Protein Albumin Arterial Blood Glucose Coronavirus (PCR) 05/15/21 05/16/21 05/16/21 21:31 05:04 10:40 WBC MCV MCH MCHC RDW Lymph % (Auto) [place] % (Auto) Eos % (Auto) Lymph # (Auto) [place] # (Auto) Eos # (Auto) Baso # (Auto) Seg Neutrophils % Seg Neuts % (Manual) Lymphocytes % (Manual) Seg Neutrophils # Seg Neutrophils # Man Lymphocytes # (Manual) D-Dimer ABG pH POC ABG pCO2 POC ABG pO2 ABG pO2 ABG HCO3 ABG O2 Saturation ABG Base Excess ABG Oxyhemoglobin ABG Sodium ABG Chloride ABG Glucose Oxyhemoglobin Carboxyhemoglobin Sodium Potassium Chloride Carbon Dioxide BUN Creatinine Glucose POC Glucose 234 H 123 H 231 H Hemoglobin A1c Magnesium Ferritin AST ALT Alkaline Phosphatase Lactate Dehydrogenase C-Reactive Protein Total Protein Albumin Arterial Blood Glucose Coronavirus (PCR) 05/16/21 05/16/21 05/17/21 18:23 21:29 06:20 WBC MCV MCH MCHC RDW 18.8 H Lymph % (Auto) 10.2 L [place] % (Auto) Eos % (Auto) Lymph # (Auto) 0.8 L [place] # (Auto) Eos # (Auto) Baso # (Auto) Seg Neutrophils % 85.8 H Seg Neuts % (Manual) Lymphocytes % (Manual) Seg Neutrophils # Seg Neutrophils # Man Lymphocytes # (Manual) D-Dimer ABG pH POC ABG pCO2 POC ABG pO2 ABG pO2 ABG HCO3 ABG O2 Saturation ABG Base Excess ABG Oxyhemoglobin ABG Sodium ABG Chloride ABG Glucose Oxyhemoglobin Carboxyhemoglobin Sodium Potassium Chloride Carbon Dioxide BUN Creatinine Glucose POC Glucose 266 H 234 H Hemoglobin A1c Magnesium Ferritin AST ALT Alkaline Phosphatase Lactate Dehydrogenase C-Reactive Protein Total Protein Albumin Arterial Blood Glucose Coronavirus (PCR) 05/17/21 05/17/21 05/17/21 06:20 11:06 16:36 WBC MCV MCH MCHC RDW Lymph % (Auto) [place] % (Auto) Eos % (Auto) Lymph # (Auto) [place] # (Auto) Eos # (Auto) Baso # (Auto) Seg Neutrophils % Seg Neuts % (Manual) Lymphocytes % (Manual) Seg Neutrophils # Seg Neutrophils # Man Lymphocytes # (Manual) D-Dimer ABG pH POC ABG pCO2 POC ABG pO2 ABG pO2 ABG HCO3 ABG O2 Saturation ABG Base Excess ABG Oxyhemoglobin ABG Sodium ABG Chloride ABG Glucose Oxyhemoglobin Carboxyhemoglobin Sodium Potassium Chloride Carbon Dioxide 33 H BUN Creatinine 0.2 L Glucose 101 H POC Glucose 209 H 180 H Hemoglobin A1c Magnesium Ferritin AST ALT Alkaline Phosphatase Lactate Dehydrogenase C-Reactive Protein Total Protein Albumin Arterial Blood Glucose Coronavirus (PCR) 05/17/21 05/18/21 05/18/21 21:06 12:00 15:06 WBC MCV MCH MCHC RDW Lymph % (Auto) [place] % (Auto) Eos % (Auto) Lymph # (Auto) [place] # (Auto) Eos # (Auto) Baso # (Auto) Seg Neutrophils % Seg Neuts % (Manual) Lymphocytes % (Manual) Seg Neutrophils # Seg Neutrophils # Man Lymphocytes # (Manual) D-Dimer 874.02 H ABG pH POC ABG pCO2 POC ABG pO2 ABG pO2 ABG HCO3 ABG O2 Saturation ABG Base Excess ABG Oxyhemoglobin ABG Sodium ABG Chloride ABG Glucose Oxyhemoglobin Carboxyhemoglobin Sodium Potassium Chloride Carbon Dioxide BUN Creatinine Glucose POC Glucose 256 H 139 H Hemoglobin A1c Magnesium Ferritin AST ALT Alkaline Phosphatase Lactate Dehydrogenase C-Reactive Protein Total Protein Albumin Arterial Blood Glucose Coronavirus (PCR) 05/18/21 05/18/21 05/18/21 15:06 15:06 16:08 WBC MCV MCH MCHC RDW Lymph % (Auto) [place] % (Auto) Eos % (Auto) Lymph # (Auto) [place] # (Auto) Eos # (Auto) Baso # (Auto) Seg Neutrophils % Seg Neuts % (Manual) Lymphocytes % (Manual) Seg Neutrophils # Seg Neutrophils # Man Lymphocytes # (Manual) D-Dimer ABG pH POC ABG pCO2 POC ABG pO2 ABG pO2 ABG HCO3 ABG O2 Saturation ABG Base Excess ABG Oxyhemoglobin ABG Sodium ABG Chloride ABG Glucose Oxyhemoglobin Carboxyhemoglobin Sodium Potassium Chloride Carbon Dioxide BUN Creatinine Glucose POC Glucose 178 H Hemoglobin A1c Magnesium Ferritin 289.6 H AST ALT Alkaline Phosphatase Lactate Dehydrogenase 605 H C-Reactive Protein Total Protein Albumin Arterial Blood Glucose Coronavirus (PCR) 05/18/21 05/19/21 05/19/21 21:22 11:57 15:26 WBC MCV MCH MCHC RDW Lymph % (Auto) [place] % (Auto) Eos % (Auto) Lymph # (Auto) [place] # (Auto) Eos # (Auto) Baso # (Auto) Seg Neutrophils % Seg Neuts % (Manual) Lymphocytes % (Manual) Seg Neutrophils # Seg Neutrophils # Man Lymphocytes # (Manual) D-Dimer ABG pH POC ABG pCO2 POC ABG pO2 ABG pO2 ABG HCO3 ABG O2 Saturation ABG Base Excess ABG Oxyhemoglobin ABG Sodium ABG Chloride ABG Glucose Oxyhemoglobin Carboxyhemoglobin Sodium Potassium Chloride Carbon Dioxide BUN Creatinine Glucose POC Glucose 241 H 201 H 209 H Hemoglobin A1c Magnesium Ferritin AST ALT Alkaline Phosphatase Lactate Dehydrogenase C-Reactive Protein Total Protein Albumin Arterial Blood Glucose Coronavirus (PCR) 05/19/21 05/20/21 05/20/21 20:59 07:38 08:01 WBC MCV MCH MCHC RDW 19.7 H Lymph % (Auto) 8.3 L [place] % (Auto) Eos % (Auto) Lymph # (Auto) 0.8 L [place] # (Auto) Eos # (Auto) Baso # (Auto) Seg Neutrophils % 88.6 H Seg Neuts % (Manual) Lymphocytes % (Manual) Seg Neutrophils # 8.4 H Seg Neutrophils # Man Lymphocytes # (Manual) D-Dimer ABG pH POC ABG pCO2 POC ABG pO2 ABG pO2 ABG HCO3 ABG O2 Saturation ABG Base Excess ABG Oxyhemoglobin ABG Sodium ABG Chloride ABG Glucose Oxyhemoglobin Carboxyhemoglobin Sodium Potassium Chloride Carbon Dioxide BUN Creatinine Glucose POC Glucose 226 H 130 H Hemoglobin A1c Magnesium Ferritin AST ALT Alkaline Phosphatase Lactate Dehydrogenase C-Reactive Protein Total Protein Albumin Arterial Blood Glucose Coronavirus (PCR) 05/20/21 05/20/21 05/20/21 08:01 11:00 16:43 WBC MCV MCH MCHC RDW Lymph % (Auto) [place] % (Auto) Eos % (Auto) Lymph # (Auto) [place] # (Auto) Eos # (Auto) Baso # (Auto) Seg Neutrophils % Seg Neuts % (Manual) Lymphocytes % (Manual) Seg Neutrophils # Seg Neutrophils # Man Lymphocytes # (Manual) D-Dimer ABG pH POC ABG pCO2 POC ABG pO2 ABG pO2 ABG HCO3 ABG O2 Saturation ABG Base Excess ABG Oxyhemoglobin ABG Sodium ABG Chloride ABG Glucose Oxyhemoglobin Carboxyhemoglobin Sodium Potassium Chloride Carbon Dioxide BUN 18 H Creatinine 0.2 L Glucose 132 H POC Glucose 237 H 240 H Hemoglobin A1c Magnesium Ferritin AST ALT Alkaline Phosphatase Lactate Dehydrogenase C-Reactive Protein Total Protein Albumin Arterial Blood Glucose Coronavirus (PCR) 05/20/21 05/21/21 05/21/21 21:21 07:35 11:32 WBC MCV MCH MCHC RDW Lymph % (Auto) [place] % (Auto) Eos % (Auto) Lymph # (Auto) [place] # (Auto) Eos # (Auto) Baso # (Auto) Seg Neutrophils % Seg Neuts % (Manual) Lymphocytes % (Manual) Seg Neutrophils # Seg Neutrophils # Man Lymphocytes # (Manual) D-Dimer ABG pH POC ABG pCO2 POC ABG pO2 ABG pO2 ABG HCO3 ABG O2 Saturation ABG Base Excess ABG Oxyhemoglobin ABG Sodium ABG Chloride ABG Glucose Oxyhemoglobin Carboxyhemoglobin Sodium Potassium Chloride Carbon Dioxide BUN Creatinine Glucose POC Glucose 241 H 162 H 171 H Hemoglobin A1c Magnesium Ferritin AST ALT Alkaline Phosphatase Lactate Dehydrogenase C-Reactive Protein Total Protein Albumin Arterial Blood Glucose Coronavirus (PCR) 05/21/21 05/21/21 05/22/21 16:22 20:43 05:14 WBC MCV MCH MCHC RDW Lymph % (Auto) [place] % (Auto) Eos % (Auto) Lymph # (Auto) [place] # (Auto) Eos # (Auto) Baso # (Auto) Seg Neutrophils % Seg Neuts % (Manual) Lymphocytes % (Manual) Seg Neutrophils # Seg Neutrophils # Man Lymphocytes # (Manual) D-Dimer ABG pH POC ABG pCO2 POC ABG pO2 ABG pO2 ABG HCO3 ABG O2 Saturation ABG Base Excess ABG Oxyhemoglobin ABG Sodium ABG Chloride ABG Glucose Oxyhemoglobin Carboxyhemoglobin Sodium Potassium Chloride Carbon Dioxide BUN Creatinine Glucose POC Glucose 244 H 299 H 140 H Hemoglobin A1c Magnesium Ferritin AST ALT Alkaline Phosphatase Lactate Dehydrogenase C-Reactive Protein Total Protein Albumin Arterial Blood Glucose Coronavirus (PCR) 05/22/21 05/22/21 05/22/21 08:45 11:54 16:15 WBC MCV MCH MCHC RDW Lymph % (Auto) [place] % (Auto) Eos % (Auto) Lymph # (Auto) [place] # (Auto) Eos # (Auto) Baso # (Auto) Seg Neutrophils % Seg Neuts % (Manual) Lymphocytes % (Manual) Seg Neutrophils # Seg Neutrophils # Man Lymphocytes # (Manual) D-Dimer ABG pH POC ABG pCO2 POC ABG pO2 ABG pO2 ABG HCO3 ABG O2 Saturation ABG Base Excess ABG Oxyhemoglobin ABG Sodium ABG Chloride ABG Glucose Oxyhemoglobin Carboxyhemoglobin Sodium Potassium Chloride Carbon Dioxide BUN Creatinine Glucose POC Glucose 133 H 265 H 221 H Hemoglobin A1c Magnesium Ferritin AST ALT Alkaline Phosphatase Lactate Dehydrogenase C-Reactive Protein Total Protein Albumin Arterial Blood Glucose Coronavirus (PCR) 05/22/21 05/23/21 05/23/21 21:43 08:20 09:50 WBC MCV MCH MCHC RDW Lymph % (Auto) [place] % (Auto) Eos % (Auto) Lymph # (Auto) [place] # (Auto) Eos # (Auto) Baso # (Auto) Seg Neutrophils % Seg Neuts % (Manual) Lymphocytes % (Manual) Seg Neutrophils # Seg Neutrophils # Man Lymphocytes # (Manual) D-Dimer 910.38 H ABG pH POC ABG pCO2 POC ABG pO2 ABG pO2 ABG HCO3 ABG O2 Saturation ABG Base Excess ABG Oxyhemoglobin ABG Sodium ABG Chloride ABG Glucose Oxyhemoglobin Carboxyhemoglobin Sodium Potassium Chloride Carbon Dioxide BUN Creatinine Glucose POC Glucose 262 H 140 H Hemoglobin A1c Magnesium Ferritin AST ALT Alkaline Phosphatase Lactate Dehydrogenase C-Reactive Protein Total Protein Albumin Arterial Blood Glucose Coronavirus (PCR) 05/23/21 05/23/21 05/23/21 09:50 09:50 10:52 WBC MCV MCH MCHC RDW Lymph % (Auto) [place] % (Auto) Eos % (Auto) Lymph # (Auto) [place] # (Auto) Eos # (Auto) Baso # (Auto) Seg Neutrophils % Seg Neuts % (Manual) Lymphocytes % (Manual) Seg Neutrophils # Seg Neutrophils # Man Lymphocytes # (Manual) D-Dimer ABG pH POC ABG pCO2 POC ABG pO2 ABG pO2 ABG HCO3 ABG O2 Saturation ABG Base Excess ABG Oxyhemoglobin ABG Sodium ABG Chloride ABG Glucose Oxyhemoglobin Carboxyhemoglobin Sodium Potassium Chloride Carbon Dioxide BUN Creatinine Glucose POC Glucose 241 H Hemoglobin A1c Magnesium Ferritin 244.9 H AST ALT Alkaline Phosphatase Lactate Dehydrogenase 584 H C-Reactive Protein Total Protein Albumin Arterial Blood Glucose Coronavirus (PCR) 05/23/21 05/23/21 05/24/21 17:24 21:52 07:44 WBC MCV MCH MCHC RDW Lymph % (Auto) [place] % (Auto) Eos % (Auto) Lymph # (Auto) [place] # (Auto) Eos # (Auto) Baso # (Auto) Seg Neutrophils % Seg Neuts % (Manual) Lymphocytes % (Manual) Seg Neutrophils # Seg Neutrophils # Man Lymphocytes # (Manual) D-Dimer ABG pH POC ABG pCO2 POC ABG pO2 ABG pO2 ABG HCO3 ABG O2 Saturation ABG Base Excess ABG Oxyhemoglobin ABG Sodium ABG Chloride ABG Glucose Oxyhemoglobin Carboxyhemoglobin Sodium Potassium Chloride Carbon Dioxide BUN Creatinine Glucose POC Glucose 197 H 289 H 161 H Hemoglobin A1c Magnesium Ferritin AST ALT Alkaline Phosphatase Lactate Dehydrogenase C-Reactive Protein Total Protein Albumin Arterial Blood Glucose Coronavirus (PCR) 05/24/21 05/24/21 05/24/21 11:17 17:51 21:26 WBC MCV MCH MCHC RDW Lymph % (Auto) [place] % (Auto) Eos % (Auto) Lymph # (Auto) [place] # (Auto) Eos # (Auto) Baso # (Auto) Seg Neutrophils % Seg Neuts % (Manual) Lymphocytes % (Manual) Seg Neutrophils # Seg Neutrophils # Man Lymphocytes # (Manual) D-Dimer ABG pH POC ABG pCO2 POC ABG pO2 ABG pO2 ABG HCO3 ABG O2 Saturation ABG Base Excess ABG Oxyhemoglobin ABG Sodium ABG Chloride ABG Glucose Oxyhemoglobin Carboxyhemoglobin Sodium Potassium Chloride Carbon Dioxide BUN Creatinine Glucose POC Glucose 308 H 175 H 198 H Hemoglobin A1c Magnesium Ferritin AST ALT Alkaline Phosphatase Lactate Dehydrogenase C-Reactive Protein Total Protein Albumin Arterial Blood Glucose Coronavirus (PCR) 05/25/21 05/25/21 05/25/21 08:14 11:13 17:13 WBC MCV MCH MCHC RDW Lymph % (Auto) [place] % (Auto) Eos % (Auto) Lymph # (Auto) [place] # (Auto) Eos # (Auto) Baso # (Auto) Seg Neutrophils % Seg Neuts % (Manual) Lymphocytes % (Manual) Seg Neutrophils # Seg Neutrophils # Man Lymphocytes # (Manual) D-Dimer ABG pH POC ABG pCO2 POC ABG pO2 ABG pO2 ABG HCO3 ABG O2 Saturation ABG Base Excess ABG Oxyhemoglobin ABG Sodium ABG Chloride ABG Glucose Oxyhemoglobin Carboxyhemoglobin Sodium Potassium Chloride Carbon Dioxide BUN Creatinine Glucose POC Glucose 203 H 339 H 235 H Hemoglobin A1c Magnesium Ferritin AST ALT Alkaline Phosphatase Lactate Dehydrogenase C-Reactive Protein Total Protein Albumin Arterial Blood Glucose Coronavirus (PCR) 05/25/21 05/26/21 05/26/21 21:03 07:33 11:19 WBC MCV MCH MCHC RDW Lymph % (Auto) [place] % (Auto) Eos % (Auto) Lymph # (Auto) [place] # (Auto) Eos # (Auto) Baso # (Auto) Seg Neutrophils % Seg Neuts % (Manual) Lymphocytes % (Manual) Seg Neutrophils # Seg Neutrophils # Man Lymphocytes # (Manual) D-Dimer ABG pH POC ABG pCO2 POC ABG pO2 ABG pO2 ABG HCO3 ABG O2 Saturation ABG Base Excess ABG Oxyhemoglobin ABG Sodium ABG Chloride ABG Glucose Oxyhemoglobin Carboxyhemoglobin Sodium Potassium Chloride Carbon Dioxide BUN Creatinine Glucose POC Glucose 263 H 156 H 288 H Hemoglobin A1c Magnesium Ferritin AST ALT Alkaline Phosphatase Lactate Dehydrogenase C-Reactive Protein Total Protein Albumin Arterial Blood Glucose Coronavirus (PCR) 05/26/21 05/26/21 05/27/21 16:26 20:55 07:38 WBC MCV MCH MCHC RDW Lymph % (Auto) [place] % (Auto) Eos % (Auto) Lymph # (Auto) [place] # (Auto) Eos # (Auto) Baso # (Auto) Seg Neutrophils % Seg Neuts % (Manual) Lymphocytes % (Manual) Seg Neutrophils # Seg Neutrophils # Man Lymphocytes # (Manual) D-Dimer ABG pH POC ABG pCO2 POC ABG pO2 ABG pO2 ABG HCO3 ABG O2 Saturation ABG Base Excess ABG Oxyhemoglobin ABG Sodium ABG Chloride ABG Glucose Oxyhemoglobin Carboxyhemoglobin Sodium Potassium Chloride Carbon Dioxide BUN Creatinine Glucose POC Glucose 286 H 293 H 115 H Hemoglobin A1c Magnesium Ferritin AST ALT Alkaline Phosphatase Lactate Dehydrogenase C-Reactive Protein Total Protein Albumin Arterial Blood Glucose Coronavirus (PCR) 05/27/21 05/27/21 05/27/21 11:46 15:58 21:02 WBC MCV MCH MCHC RDW Lymph % (Auto) [place] % (Auto) Eos % (Auto) Lymph # (Auto) [place] # (Auto) Eos # (Auto) Baso # (Auto) Seg Neutrophils % Seg Neuts % (Manual) Lymphocytes % (Manual) Seg Neutrophils # Seg Neutrophils # Man Lymphocytes # (Manual) D-Dimer ABG pH POC ABG pCO2 POC ABG pO2 ABG pO2 ABG HCO3 ABG O2 Saturation ABG Base Excess ABG Oxyhemoglobin ABG Sodium ABG Chloride ABG Glucose Oxyhemoglobin Carboxyhemoglobin Sodium Potassium Chloride Carbon Dioxide BUN Creatinine Glucose POC Glucose 260 H 318 H 246 H Hemoglobin A1c Magnesium Ferritin AST ALT Alkaline Phosphatase Lactate Dehydrogenase C-Reactive Protein Total Protein Albumin Arterial Blood Glucose Coronavirus (PCR) 05/28/21 05/28/21 05/28/21 07:34 11:31 16:36 WBC MCV MCH MCHC RDW Lymph % (Auto) [place] % (Auto) Eos % (Auto) Lymph # (Auto) [place] # (Auto) Eos # (Auto) Baso # (Auto) Seg Neutrophils % Seg Neuts % (Manual) Lymphocytes % (Manual) Seg Neutrophils # Seg Neutrophils # Man Lymphocytes # (Manual) D-Dimer ABG pH POC ABG pCO2 POC ABG pO2 ABG pO2 ABG HCO3 ABG O2 Saturation ABG Base Excess ABG Oxyhemoglobin ABG Sodium ABG Chloride ABG Glucose Oxyhemoglobin Carboxyhemoglobin Sodium Potassium Chloride Carbon Dioxide BUN Creatinine Glucose POC Glucose 185 H 297 H 183 H Hemoglobin A1c Magnesium Ferritin AST ALT Alkaline Phosphatase Lactate Dehydrogenase C-Reactive Protein Total Protein Albumin Arterial Blood Glucose Coronavirus (PCR) 05/28/21 05/29/21 05/29/21 21:19 07:34 11:19 WBC MCV MCH MCHC RDW Lymph % (Auto) [place] % (Auto) Eos % (Auto) Lymph # (Auto) [place] # (Auto) Eos # (Auto) Baso # (Auto) Seg Neutrophils % Seg Neuts % (Manual) Lymphocytes % (Manual) Seg Neutrophils # Seg Neutrophils # Man Lymphocytes # (Manual) D-Dimer ABG pH POC ABG pCO2 POC ABG pO2 ABG pO2 ABG HCO3 ABG O2 Saturation ABG Base Excess ABG Oxyhemoglobin ABG Sodium ABG Chloride ABG Glucose Oxyhemoglobin Carboxyhemoglobin Sodium Potassium Chloride Carbon Dioxide BUN Creatinine Glucose POC Glucose 274 H 139 H 293 H Hemoglobin A1c Magnesium Ferritin AST ALT Alkaline Phosphatase Lactate Dehydrogenase C-Reactive Protein Total Protein Albumin Arterial Blood Glucose Coronavirus (PCR) 05/29/21 05/29/21 05/30/21 16:36 22:44 05:55 WBC MCV MCH MCHC RDW 21.3 H Lymph % (Auto) 8.0 L [place] % (Auto) Eos % (Auto) Lymph # (Auto) 0.6 L [place] # (Auto) Eos # (Auto) Baso # (Auto) Seg Neutrophils % 88.6 H Seg Neuts % (Manual) Lymphocytes % (Manual) Seg Neutrophils # Seg Neutrophils # Man Lymphocytes # (Manual) D-Dimer ABG pH POC ABG pCO2 POC ABG pO2 ABG pO2 ABG HCO3 ABG O2 Saturation ABG Base Excess ABG Oxyhemoglobin ABG Sodium ABG Chloride ABG Glucose Oxyhemoglobin Carboxyhemoglobin Sodium Potassium Chloride Carbon Dioxide BUN Creatinine Glucose POC Glucose 299 H 160 H Hemoglobin A1c Magnesium Ferritin AST ALT Alkaline Phosphatase Lactate Dehydrogenase C-Reactive Protein Total Protein Albumin Arterial Blood Glucose Coronavirus (PCR) 05/30/21 05/30/21 05/30/21 05:55 08:04 11:13 WBC MCV MCH MCHC RDW Lymph % (Auto) [place] % (Auto) Eos % (Auto) Lymph # (Auto) [place] # (Auto) Eos # (Auto) Baso # (Auto) Seg Neutrophils % Seg Neuts % (Manual) Lymphocytes % (Manual) Seg Neutrophils # Seg Neutrophils # Man Lymphocytes # (Manual) D-Dimer ABG pH POC ABG pCO2 POC ABG pO2 ABG pO2 ABG HCO3 ABG O2 Saturation ABG Base Excess ABG Oxyhemoglobin ABG Sodium ABG Chloride ABG Glucose Oxyhemoglobin Carboxyhemoglobin Sodium Potassium Chloride Carbon Dioxide BUN 19 H Creatinine 0.2 L Glucose 209 H POC Glucose 157 H 275 H Hemoglobin A1c Magnesium Ferritin AST ALT Alkaline Phosphatase Lactate Dehydrogenase C-Reactive Protein Total Protein Albumin Arterial Blood Glucose Coronavirus (PCR) 05/30/21 05/30/21 05/31/21 17:08 22:12 07:36 WBC MCV MCH MCHC RDW Lymph % (Auto) [place] % (Auto) Eos % (Auto) Lymph # (Auto) [place] # (Auto) Eos # (Auto) Baso # (Auto) Seg Neutrophils % Seg Neuts % (Manual) Lymphocytes % (Manual) Seg Neutrophils # Seg Neutrophils # Man Lymphocytes # (Manual) D-Dimer ABG pH POC ABG pCO2 POC ABG pO2 ABG pO2 ABG HCO3 ABG O2 Saturation ABG Base Excess ABG Oxyhemoglobin ABG Sodium ABG Chloride ABG Glucose Oxyhemoglobin Carboxyhemoglobin Sodium Potassium Chloride Carbon Dioxide BUN Creatinine Glucose POC Glucose 154 H 275 H 138 H Hemoglobin A1c Magnesium Ferritin AST ALT Alkaline Phosphatase Lactate Dehydrogenase C-Reactive Protein Total Protein Albumin Arterial Blood Glucose Coronavirus (PCR) 05/31/21 05/31/21 05/31/21 11:17 16:55 21:25 WBC MCV MCH MCHC RDW Lymph % (Auto) [place] % (Auto) Eos % (Auto) Lymph # (Auto) [place] # (Auto) Eos # (Auto) Baso # (Auto) Seg Neutrophils % Seg Neuts % (Manual) Lymphocytes % (Manual) Seg Neutrophils # Seg Neutrophils # Man Lymphocytes # (Manual) D-Dimer ABG pH POC ABG pCO2 POC ABG pO2 ABG pO2 ABG HCO3 ABG O2 Saturation ABG Base Excess ABG Oxyhemoglobin ABG Sodium ABG Chloride ABG Glucose Oxyhemoglobin Carboxyhemoglobin Sodium Potassium Chloride Carbon Dioxide BUN Creatinine Glucose POC Glucose 258 H 215 H 318 H Hemoglobin A1c Magnesium Ferritin AST ALT Alkaline Phosphatase Lactate Dehydrogenase C-Reactive Protein Total Protein Albumin Arterial Blood Glucose Coronavirus (PCR) 06/01/21 06/01/21 06/01/21 07:23 11:38 16:52 WBC MCV MCH MCHC RDW Lymph % (Auto) [place] % (Auto) Eos % (Auto) Lymph # (Auto) [place] # (Auto) Eos # (Auto) Baso # (Auto) Seg Neutrophils % Seg Neuts % (Manual) Lymphocytes % (Manual) Seg Neutrophils # Seg Neutrophils # Man Lymphocytes # (Manual) D-Dimer ABG pH POC ABG pCO2 POC ABG pO2 ABG pO2 ABG HCO3 ABG O2 Saturation ABG Base Excess ABG Oxyhemoglobin ABG Sodium ABG Chloride ABG Glucose Oxyhemoglobin Carboxyhemoglobin Sodium Potassium Chloride Carbon Dioxide BUN Creatinine Glucose POC Glucose 157 H 259 H 150 H Hemoglobin A1c Magnesium Ferritin AST ALT Alkaline Phosphatase Lactate Dehydrogenase C-Reactive Protein Total Protein Albumin Arterial Blood Glucose Coronavirus (PCR) 06/01/21 06/02/21 06/02/21 23:16 05:34 05:34 WBC MCV MCH MCHC RDW 21.3 H Lymph % (Auto) 9.6 L [place] % (Auto) Eos % (Auto) Lymph # (Auto) 0.6 L [place] # (Auto) Eos # (Auto) Baso # (Auto) Seg Neutrophils % 86.2 H Seg Neuts % (Manual) Lymphocytes % (Manual) Seg Neutrophils # Seg Neutrophils # Man Lymphocytes # (Manual) D-Dimer ABG pH POC ABG pCO2 POC ABG pO2 ABG pO2 ABG HCO3 ABG O2 Saturation ABG Base Excess ABG Oxyhemoglobin ABG Sodium ABG Chloride ABG Glucose Oxyhemoglobin Carboxyhemoglobin Sodium 136 L Potassium Chloride Carbon Dioxide BUN Creatinine 0.2 L Glucose 186 H POC Glucose 247 H Hemoglobin A1c Magnesium Ferritin AST ALT 69 H Alkaline Phosphatase Lactate Dehydrogenase C-Reactive Protein Total Protein 6.1 L Albumin 3.2 L Arterial Blood Glucose Coronavirus (PCR) 06/02/21 06/02/21 06/02/21 11:25 18:23 21:32 WBC MCV MCH MCHC RDW Lymph % (Auto) [place] % (Auto) Eos % (Auto) Lymph # (Auto) [place] # (Auto) Eos # (Auto) Baso # (Auto) Seg Neutrophils % Seg Neuts % (Manual) Lymphocytes % (Manual) Seg Neutrophils # Seg Neutrophils # Man Lymphocytes # (Manual) D-Dimer ABG pH POC ABG pCO2 POC ABG pO2 ABG pO2 ABG HCO3 ABG O2 Saturation ABG Base Excess ABG Oxyhemoglobin ABG Sodium ABG Chloride ABG Glucose Oxyhemoglobin Carboxyhemoglobin Sodium Potassium Chloride Carbon Dioxide BUN Creatinine Glucose POC Glucose 157 H 299 H 246 H Hemoglobin A1c Magnesium Ferritin AST ALT Alkaline Phosphatase Lactate Dehydrogenase C-Reactive Protein Total Protein Albumin Arterial Blood Glucose Coronavirus (PCR) 06/03/21 06/03/21 06/03/21 08:12 12:21 17:31 WBC MCV MCH MCHC RDW Lymph % (Auto) [place] % (Auto) Eos % (Auto) Lymph # (Auto) [place] # (Auto) Eos # (Auto) Baso # (Auto) Seg Neutrophils % Seg Neuts % (Manual) Lymphocytes % (Manual) Seg Neutrophils # Seg Neutrophils # Man Lymphocytes # (Manual) D-Dimer ABG pH POC ABG pCO2 POC ABG pO2 ABG pO2 ABG HCO3 ABG O2 Saturation ABG Base Excess ABG Oxyhemoglobin ABG Sodium ABG Chloride ABG Glucose Oxyhemoglobin Carboxyhemoglobin Sodium Potassium Chloride Carbon Dioxide BUN Creatinine Glucose POC Glucose 153 H 302 H 252 H Hemoglobin A1c Magnesium Ferritin AST ALT Alkaline Phosphatase Lactate Dehydrogenase C-Reactive Protein Total Protein Albumin Arterial Blood Glucose Coronavirus (PCR) 06/03/21 06/04/21 06/04/21 22:08 11:12 16:01 WBC MCV MCH MCHC RDW Lymph % (Auto) [place] % (Auto) Eos % (Auto) Lymph # (Auto) [place] # (Auto) Eos # (Auto) Baso # (Auto) Seg Neutrophils % Seg Neuts % (Manual) Lymphocytes % (Manual) Seg Neutrophils # Seg Neutrophils # Man Lymphocytes # (Manual) D-Dimer ABG pH POC ABG pCO2 POC ABG pO2 ABG pO2 ABG HCO3 ABG O2 Saturation ABG Base Excess ABG Oxyhemoglobin ABG Sodium ABG Chloride ABG Glucose Oxyhemoglobin Carboxyhemoglobin Sodium Potassium Chloride Carbon Dioxide BUN Creatinine Glucose POC Glucose 224 H 259 H 238 H Hemoglobin A1c Magnesium Ferritin AST ALT Alkaline Phosphatase Lactate Dehydrogenase C-Reactive Protein Total Protein Albumin Arterial Blood Glucose Coronavirus (PCR) 06/04/21 06/05/21 06/05/21 21:26 05:26 05:26 WBC MCV MCH MCHC RDW Lymph % (Auto) [place] % (Auto) Eos % (Auto) Lymph # (Auto) [place] # (Auto) Eos # (Auto) Baso # (Auto) Seg Neutrophils % Seg Neuts % (Manual) Lymphocytes % (Manual) Seg Neutrophils # Seg Neutrophils # Man Lymphocytes # (Manual) D-Dimer 488.49 H ABG pH POC ABG pCO2 POC ABG pO2 ABG pO2 ABG HCO3 ABG O2 Saturation ABG Base Excess ABG Oxyhemoglobin ABG Sodium ABG Chloride ABG Glucose Oxyhemoglobin Carboxyhemoglobin Sodium Potassium Chloride Carbon Dioxide BUN Creatinine 0.2 L Glucose 198 H POC Glucose 257 H Hemoglobin A1c Magnesium Ferritin AST ALT Alkaline Phosphatase Lactate Dehydrogenase 475 H C-Reactive Protein Total Protein Albumin Arterial Blood Glucose Coronavirus (PCR) 06/05/21 06/05/21 06/05/21 07:20 08:30 11:00 WBC MCV MCH MCHC RDW Lymph % (Auto) [place] % (Auto) Eos % (Auto) Lymph # (Auto) [place] # (Auto) Eos # (Auto) Baso # (Auto) Seg Neutrophils % Seg Neuts % (Manual) Lymphocytes % (Manual) Seg Neutrophils # Seg Neutrophils # Man Lymphocytes # (Manual) D-Dimer ABG pH POC ABG pCO2 POC ABG pO2 ABG pO2 ABG HCO3 ABG O2 Saturation ABG Base Excess ABG Oxyhemoglobin ABG Sodium ABG Chloride ABG Glucose Oxyhemoglobin Carboxyhemoglobin Sodium Potassium Chloride Carbon Dioxide BUN Creatinine Glucose POC Glucose 146 H 246 H Hemoglobin A1c Magnesium Ferritin AST ALT Alkaline Phosphatase Lactate Dehydrogenase C-Reactive Protein Total Protein Albumin Arterial Blood Glucose Coronavirus (PCR) Positive A 06/05/21 06/05/21 06/06/21 16:50 22:30 07:57 WBC MCV MCH MCHC RDW Lymph % (Auto) [place] % (Auto) Eos % (Auto) Lymph # (Auto) [place] # (Auto) Eos # (Auto) Baso # (Auto) Seg Neutrophils % Seg Neuts % (Manual) Lymphocytes % (Manual) Seg Neutrophils # Seg Neutrophils # Man Lymphocytes # (Manual) D-Dimer ABG pH POC ABG pCO2 POC ABG pO2 ABG pO2 ABG HCO3 ABG O2 Saturation ABG Base Excess ABG Oxyhemoglobin ABG Sodium ABG Chloride ABG Glucose Oxyhemoglobin Carboxyhemoglobin Sodium Potassium Chloride Carbon Dioxide BUN Creatinine Glucose POC Glucose 240 H 174 H 120 H Hemoglobin A1c Magnesium Ferritin AST ALT Alkaline Phosphatase Lactate Dehydrogenase C-Reactive Protein Total Protein Albumin Arterial Blood Glucose Coronavirus (PCR) 06/06/21 06/06/21 06/06/21 11:14 16:50 21:11 WBC MCV MCH MCHC RDW Lymph % (Auto) [place] % (Auto) Eos % (Auto) Lymph # (Auto) [place] # (Auto) Eos # (Auto) Baso # (Auto) Seg Neutrophils % Seg Neuts % (Manual) Lymphocytes % (Manual) Seg Neutrophils # Seg Neutrophils # Man Lymphocytes # (Manual) D-Dimer ABG pH POC ABG pCO2 POC ABG pO2 ABG pO2 ABG HCO3 ABG O2 Saturation ABG Base Excess ABG Oxyhemoglobin ABG Sodium ABG Chloride ABG Glucose Oxyhemoglobin Carboxyhemoglobin Sodium Potassium Chloride Carbon Dioxide BUN Creatinine Glucose POC Glucose 267 H 218 H 124 H Hemoglobin A1c Magnesium Ferritin AST ALT Alkaline Phosphatase Lactate Dehydrogenase C-Reactive Protein Total Protein Albumin Arterial Blood Glucose Coronavirus (PCR) 06/07/21 06/07/21 06/08/21 11:58 15:59 07:59 WBC MCV MCH MCHC RDW Lymph % (Auto) [place] % (Auto) Eos % (Auto) Lymph # (Auto) [place] # (Auto) Eos # (Auto) Baso # (Auto) Seg Neutrophils % Seg Neuts % (Manual) Lymphocytes % (Manual) Seg Neutrophils # Seg Neutrophils # Man Lymphocytes # (Manual) D-Dimer ABG pH POC ABG pCO2 POC ABG pO2 ABG pO2 ABG HCO3 ABG O2 Saturation ABG Base Excess ABG Oxyhemoglobin ABG Sodium ABG Chloride ABG Glucose Oxyhemoglobin Carboxyhemoglobin Sodium Potassium Chloride Carbon Dioxide BUN Creatinine Glucose POC Glucose 219 H 208 H 192 H Hemoglobin A1c Magnesium Ferritin AST ALT Alkaline Phosphatase Lactate Dehydrogenase C-Reactive Protein Total Protein Albumin Arterial Blood Glucose Coronavirus (PCR) 06/08/21 06/08/21 06/09/21 11:26 23:28 07:33 WBC MCV MCH MCHC RDW Lymph % (Auto) [place] % (Auto) Eos % (Auto) Lymph # (Auto) [place] # (Auto) Eos # (Auto) Baso # (Auto) Seg Neutrophils % Seg Neuts % (Manual) Lymphocytes % (Manual) Seg Neutrophils # Seg Neutrophils # Man Lymphocytes # (Manual) D-Dimer ABG pH POC ABG pCO2 POC ABG pO2 ABG pO2 ABG HCO3 ABG O2 Saturation ABG Base Excess ABG Oxyhemoglobin ABG Sodium ABG Chloride ABG Glucose Oxyhemoglobin Carboxyhemoglobin Sodium Potassium Chloride Carbon Dioxide BUN Creatinine Glucose POC Glucose 307 H 138 H 145 H Hemoglobin A1c Magnesium Ferritin AST ALT Alkaline Phosphatase Lactate Dehydrogenase C-Reactive Protein Total Protein Albumin Arterial Blood Glucose Coronavirus (PCR) 06/09/21 06/09/21 06/09/21 11:01 15:47 21:43 WBC MCV MCH MCHC RDW Lymph % (Auto) [place] % (Auto) Eos % (Auto) Lymph # (Auto) [place] # (Auto) Eos # (Auto) Baso # (Auto) Seg Neutrophils % Seg Neuts % (Manual) Lymphocytes % (Manual) Seg Neutrophils # Seg Neutrophils # Man Lymphocytes # (Manual) D-Dimer ABG pH POC ABG pCO2 POC ABG pO2 ABG pO2 ABG HCO3 ABG O2 Saturation ABG Base Excess ABG Oxyhemoglobin ABG Sodium ABG Chloride ABG Glucose Oxyhemoglobin Carboxyhemoglobin Sodium Potassium Chloride Carbon Dioxide BUN Creatinine Glucose POC Glucose 266 H 305 H 223 H Hemoglobin A1c Magnesium Ferritin AST ALT Alkaline Phosphatase Lactate Dehydrogenase C-Reactive Protein Total Protein Albumin Arterial Blood Glucose Coronavirus (PCR) 06/10/21 06/10/21 06/10/21 08:27 12:10 17:45 WBC MCV MCH MCHC RDW Lymph % (Auto) [place] % (Auto) Eos % (Auto) Lymph # (Auto) [place] # (Auto) Eos # (Auto) Baso # (Auto) Seg Neutrophils % Seg Neuts % (Manual) Lymphocytes % (Manual) Seg Neutrophils # Seg Neutrophils # Man Lymphocytes # (Manual) D-Dimer ABG pH POC ABG pCO2 POC ABG pO2 ABG pO2 ABG HCO3 ABG O2 Saturation ABG Base Excess ABG Oxyhemoglobin ABG Sodium ABG Chloride ABG Glucose Oxyhemoglobin Carboxyhemoglobin Sodium Potassium Chloride Carbon Dioxide BUN Creatinine Glucose POC Glucose 174 H 306 H 210 H Hemoglobin A1c Magnesium Ferritin AST ALT Alkaline Phosphatase Lactate Dehydrogenase C-Reactive Protein Total Protein Albumin Arterial Blood Glucose Coronavirus (PCR) 06/10/21 06/11/21 06/11/21 21:45 09:38 09:38 WBC MCV MCH MCHC RDW 20.9 H Lymph % (Auto) [place] % (Auto) Eos % (Auto) Lymph # (Auto) [place] # (Auto) Eos # (Auto) Baso # (Auto) Seg Neutrophils % Seg Neuts % (Manual) Lymphocytes % (Manual) Seg Neutrophils # Seg Neutrophils # Man Lymphocytes # (Manual) D-Dimer ABG pH POC ABG pCO2 POC ABG pO2 ABG pO2 ABG HCO3 ABG O2 Saturation ABG Base Excess ABG Oxyhemoglobin ABG Sodium ABG Chloride ABG Glucose Oxyhemoglobin Carboxyhemoglobin Sodium 135 L Potassium Chloride 90.8 L Carbon Dioxide 36 H BUN 29 H Creatinine 0.2 L Glucose 258 H POC Glucose 262 H Hemoglobin A1c Magnesium Ferritin AST ALT Alkaline Phosphatase Lactate Dehydrogenase C-Reactive Protein Total Protein Albumin Arterial Blood Glucose Coronavirus (PCR) 06/11/21 06/11/21 06/11/21 11:20 15:49 22:57 WBC MCV MCH MCHC RDW Lymph % (Auto) [place] % (Auto) Eos % (Auto) Lymph # (Auto) [place] # (Auto) Eos # (Auto) Baso # (Auto) Seg Neutrophils % Seg Neuts % (Manual) Lymphocytes % (Manual) Seg Neutrophils # Seg Neutrophils # Man Lymphocytes # (Manual) D-Dimer ABG pH POC ABG pCO2 POC ABG pO2 ABG pO2 ABG HCO3 ABG O2 Saturation ABG Base Excess ABG Oxyhemoglobin ABG Sodium ABG Chloride ABG Glucose Oxyhemoglobin Carboxyhemoglobin Sodium Potassium Chloride Carbon Dioxide BUN Creatinine Glucose POC Glucose 269 H 206 H 211 H Hemoglobin A1c Magnesium Ferritin AST ALT Alkaline Phosphatase Lactate Dehydrogenase C-Reactive Protein Total Protein Albumin Arterial Blood Glucose Coronavirus (PCR) 06/12/21 06/12/21 06/12/21 08:07 11:24 18:08 WBC MCV MCH MCHC RDW Lymph % (Auto) [place] % (Auto) Eos % (Auto) Lymph # (Auto) [place] # (Auto) Eos # (Auto) Baso # (Auto) Seg Neutrophils % Seg Neuts % (Manual) Lymphocytes % (Manual) Seg Neutrophils # Seg Neutrophils # Man Lymphocytes # (Manual) D-Dimer ABG pH POC ABG pCO2 POC ABG pO2 ABG pO2 ABG HCO3 ABG O2 Saturation ABG Base Excess ABG Oxyhemoglobin ABG Sodium ABG Chloride ABG Glucose Oxyhemoglobin Carboxyhemoglobin Sodium Potassium Chloride Carbon Dioxide BUN Creatinine Glucose POC Glucose 149 H 270 H 166 H Hemoglobin A1c Magnesium Ferritin AST ALT Alkaline Phosphatase Lactate Dehydrogenase C-Reactive Protein Total Protein Albumin Arterial Blood Glucose Coronavirus (PCR) 06/12/21 06/13/21 06/13/21 20:22 07:50 11:18 WBC MCV MCH MCHC RDW Lymph % (Auto) [place] % (Auto) Eos % (Auto) Lymph # (Auto) [place] # (Auto) Eos # (Auto) Baso # (Auto) Seg Neutrophils % Seg Neuts % (Manual) Lymphocytes % (Manual) Seg Neutrophils # Seg Neutrophils # Man Lymphocytes # (Manual) D-Dimer ABG pH POC ABG pCO2 POC ABG pO2 ABG pO2 ABG HCO3 ABG O2 Saturation ABG Base Excess ABG Oxyhemoglobin ABG Sodium ABG Chloride ABG Glucose Oxyhemoglobin Carboxyhemoglobin Sodium Potassium Chloride Carbon Dioxide BUN Creatinine Glucose POC Glucose 155 H 163 H 293 H Hemoglobin A1c Magnesium Ferritin AST ALT Alkaline Phosphatase Lactate Dehydrogenase C-Reactive Protein Total Protein Albumin Arterial Blood Glucose Coronavirus (PCR) 06/13/21 06/13/21 06/14/21 16:41 21:00 07:41 WBC MCV MCH MCHC RDW Lymph % (Auto) [place] % (Auto) Eos % (Auto) Lymph # (Auto) [place] # (Auto) Eos # (Auto) Baso # (Auto) Seg Neutrophils % Seg Neuts % (Manual) Lymphocytes % (Manual) Seg Neutrophils # Seg Neutrophils # Man Lymphocytes # (Manual) D-Dimer ABG pH POC ABG pCO2 POC ABG pO2 ABG pO2 ABG HCO3 ABG O2 Saturation ABG Base Excess ABG Oxyhemoglobin ABG Sodium ABG Chloride ABG Glucose Oxyhemoglobin Carboxyhemoglobin Sodium Potassium Chloride Carbon Dioxide BUN Creatinine Glucose POC Glucose 232 H 183 H 52 L Hemoglobin A1c Magnesium Ferritin AST ALT Alkaline Phosphatase Lactate Dehydrogenase C-Reactive Protein Total Protein Albumin Arterial Blood Glucose Coronavirus (PCR) 06/14/21 06/14/21 06/14/21 11:44 17:44 21:44 WBC MCV MCH MCHC RDW Lymph % (Auto) [place] % (Auto) Eos % (Auto) Lymph # (Auto) [place] # (Auto) Eos # (Auto) Baso # (Auto) Seg Neutrophils % Seg Neuts % (Manual) Lymphocytes % (Manual) Seg Neutrophils # Seg Neutrophils # Man Lymphocytes # (Manual) D-Dimer ABG pH POC ABG pCO2 POC ABG pO2 ABG pO2 ABG HCO3 ABG O2 Saturation ABG Base Excess ABG Oxyhemoglobin ABG Sodium ABG Chloride ABG Glucose Oxyhemoglobin Carboxyhemoglobin Sodium Potassium Chloride Carbon Dioxide BUN Creatinine Glucose POC Glucose 205 H 293 H 288 H Hemoglobin A1c Magnesium Ferritin AST ALT Alkaline Phosphatase Lactate Dehydrogenase C-Reactive Protein Total Protein Albumin Arterial Blood Glucose Coronavirus (PCR) 06/15/21 06/15/21 06/15/21 08:00 08:00 11:40 WBC MCV MCH 33 H MCHC 35 H RDW 20.3 H Lymph % (Auto) [place] % (Auto) Eos % (Auto) Lymph # (Auto) [place] # (Auto) Eos # (Auto) Baso # (Auto) Seg Neutrophils % Seg Neuts % (Manual) Lymphocytes % (Manual) Seg Neutrophils # Seg Neutrophils # Man Lymphocytes # (Manual) D-Dimer ABG pH POC ABG pCO2 POC ABG pO2 ABG pO2 ABG HCO3 ABG O2 Saturation ABG Base Excess ABG Oxyhemoglobin ABG Sodium ABG Chloride ABG Glucose Oxyhemoglobin Carboxyhemoglobin Sodium Potassium 3.2 L Chloride 95.3 L Carbon Dioxide 32 H BUN 23 H Creatinine 0.2 L Glucose 103 H POC Glucose 204 H Hemoglobin A1c Magnesium Ferritin AST ALT Alkaline Phosphatase Lactate Dehydrogenase C-Reactive Protein Total Protein Albumin Arterial Blood Glucose Coronavirus (PCR) 06/15/21 06/15/21 06/16/21 16:17 22:00 11:43 WBC MCV MCH MCHC RDW Lymph % (Auto) [place] % (Auto) Eos % (Auto) Lymph # (Auto) [place] # (Auto) Eos # (Auto) Baso # (Auto) Seg Neutrophils % Seg Neuts % (Manual) Lymphocytes % (Manual) Seg Neutrophils # Seg Neutrophils # Man Lymphocytes # (Manual) D-Dimer ABG pH POC ABG pCO2 POC ABG pO2 ABG pO2 ABG HCO3 ABG O2 Saturation ABG Base Excess ABG Oxyhemoglobin ABG Sodium ABG Chloride ABG Glucose Oxyhemoglobin Carboxyhemoglobin Sodium Potassium Chloride Carbon Dioxide BUN Creatinine Glucose POC Glucose 295 H 233 H 201 H Hemoglobin A1c Magnesium Ferritin AST ALT Alkaline Phosphatase Lactate Dehydrogenase C-Reactive Protein Total Protein Albumin Arterial Blood Glucose Coronavirus (PCR) 06/16/21 06/16/21 06/17/21 17:21 21:27 07:12 WBC MCV MCH MCHC RDW Lymph % (Auto) [place] % (Auto) Eos % (Auto) Lymph # (Auto) [place] # (Auto) Eos # (Auto) Baso # (Auto) Seg Neutrophils % Seg Neuts % (Manual) Lymphocytes % (Manual) Seg Neutrophils # Seg Neutrophils # Man Lymphocytes # (Manual) D-Dimer ABG pH POC ABG pCO2 POC ABG pO2 ABG pO2 ABG HCO3 ABG O2 Saturation ABG Base Excess ABG Oxyhemoglobin ABG Sodium ABG Chloride ABG Glucose Oxyhemoglobin Carboxyhemoglobin Sodium Potassium Chloride Carbon Dioxide BUN Creatinine Glucose POC Glucose 299 H 290 H 67 L Hemoglobin A1c Magnesium Ferritin AST ALT Alkaline Phosphatase Lactate Dehydrogenase C-Reactive Protein Total Protein Albumin Arterial Blood Glucose Coronavirus (PCR) 06/17/21 06/17/21 06/17/21 11:53 17:02 22:25 WBC MCV MCH MCHC RDW Lymph % (Auto) [place] % (Auto) Eos % (Auto) Lymph # (Auto) [place] # (Auto) Eos # (Auto) Baso # (Auto) Seg Neutrophils % Seg Neuts % (Manual) Lymphocytes % (Manual) Seg Neutrophils # Seg Neutrophils # Man Lymphocytes # (Manual) D-Dimer ABG pH POC ABG pCO2 POC ABG pO2 ABG pO2 ABG HCO3 ABG O2 Saturation ABG Base Excess ABG Oxyhemoglobin ABG Sodium ABG Chloride ABG Glucose Oxyhemoglobin Carboxyhemoglobin Sodium Potassium Chloride Carbon Dioxide BUN Creatinine Glucose POC Glucose 199 H 362 H 235 H Hemoglobin A1c Magnesium Ferritin AST ALT Alkaline Phosphatase Lactate Dehydrogenase C-Reactive Protein Total Protein Albumin Arterial Blood Glucose Coronavirus (PCR) 06/18/21 06/18/21 06/18/21 08:00 11:48 16:40 WBC MCV MCH MCHC RDW Lymph % (Auto) [place] % (Auto) Eos % (Auto) Lymph # (Auto) [place] # (Auto) Eos # (Auto) Baso # (Auto) Seg Neutrophils % Seg Neuts % (Manual) Lymphocytes % (Manual) Seg Neutrophils # Seg Neutrophils # Man Lymphocytes # (Manual) D-Dimer ABG pH POC ABG pCO2 POC ABG pO2 ABG pO2 ABG HCO3 ABG O2 Saturation ABG Base Excess ABG Oxyhemoglobin ABG Sodium ABG Chloride ABG Glucose Oxyhemoglobin Carboxyhemoglobin Sodium Potassium Chloride Carbon Dioxide BUN Creatinine Glucose POC Glucose 62 L 211 H 305 H Hemoglobin A1c Magnesium Ferritin AST ALT Alkaline Phosphatase Lactate Dehydrogenase C-Reactive Protein Total Protein Albumin Arterial Blood Glucose Coronavirus (PCR) 06/18/21 06/19/21 06/19/21 21:26 07:27 11:32 WBC MCV MCH MCHC RDW Lymph % (Auto) [place] % (Auto) Eos % (Auto) Lymph # (Auto) [place] # (Auto) Eos # (Auto) Baso # (Auto) Seg Neutrophils % Seg Neuts % (Manual) Lymphocytes % (Manual) Seg Neutrophils # Seg Neutrophils # Man Lymphocytes # (Manual) D-Dimer ABG pH POC ABG pCO2 POC ABG pO2 ABG pO2 ABG HCO3 ABG O2 Saturation ABG Base Excess ABG Oxyhemoglobin ABG Sodium ABG Chloride ABG Glucose Oxyhemoglobin Carboxyhemoglobin Sodium Potassium Chloride Carbon Dioxide BUN Creatinine Glucose POC Glucose 149 H 60 L 208 H Hemoglobin A1c Magnesium Ferritin AST ALT Alkaline Phosphatase Lactate Dehydrogenase C-Reactive Protein Total Protein Albumin Arterial Blood Glucose Coronavirus (PCR) 06/19/21 06/19/21 06/20/21 16:06 22:28 07:48 WBC MCV MCH MCHC RDW Lymph % (Auto) [place] % (Auto) Eos % (Auto) Lymph # (Auto) [place] # (Auto) Eos # (Auto) Baso # (Auto) Seg Neutrophils % Seg Neuts % (Manual) Lymphocytes % (Manual) Seg Neutrophils # Seg Neutrophils # Man Lymphocytes # (Manual) D-Dimer ABG pH POC ABG pCO2 POC ABG pO2 ABG pO2 ABG HCO3 ABG O2 Saturation ABG Base Excess ABG Oxyhemoglobin ABG Sodium ABG Chloride ABG Glucose Oxyhemoglobin Carboxyhemoglobin Sodium Potassium Chloride Carbon Dioxide BUN Creatinine Glucose POC Glucose 266 H 166 H 58 L Hemoglobin A1c Magnesium Ferritin AST ALT Alkaline Phosphatase Lactate Dehydrogenase C-Reactive Protein Total Protein Albumin Arterial Blood Glucose Coronavirus (PCR) 06/20/21 06/20/21 06/20/21 09:09 11:04 16:01 WBC MCV MCH MCHC RDW Lymph % (Auto) [place] % (Auto) Eos % (Auto) Lymph # (Auto) [place] # (Auto) Eos # (Auto) Baso # (Auto) Seg Neutrophils % Seg Neuts % (Manual) Lymphocytes % (Manual) Seg Neutrophils # Seg Neutrophils # Man Lymphocytes # (Manual) D-Dimer ABG pH POC ABG pCO2 POC ABG pO2 ABG pO2 ABG HCO3 ABG O2 Saturation ABG Base Excess ABG Oxyhemoglobin ABG Sodium ABG Chloride ABG Glucose Oxyhemoglobin Carboxyhemoglobin Sodium Potassium Chloride Carbon Dioxide BUN Creatinine Glucose POC Glucose 146 H 225 H 330 H Hemoglobin A1c Magnesium Ferritin AST ALT Alkaline Phosphatase Lactate Dehydrogenase C-Reactive Protein Total Protein Albumin Arterial Blood Glucose Coronavirus (PCR) 06/20/21 06/21/21 06/21/21 20:46 06:45 06:45 WBC MCV MCH MCHC RDW 20.0 H Lymph % (Auto) [place] % (Auto) Eos % (Auto) Lymph # (Auto) [place] # (Auto) Eos # (Auto) Baso # (Auto) Seg Neutrophils % Seg Neuts % (Manual) Lymphocytes % (Manual) Seg Neutrophils # Seg Neutrophils # Man Lymphocytes # (Manual) D-Dimer ABG pH POC ABG pCO2 POC ABG pO2 ABG pO2 ABG HCO3 ABG O2 Saturation ABG Base Excess ABG Oxyhemoglobin ABG Sodium ABG Chloride ABG Glucose Oxyhemoglobin Carboxyhemoglobin Sodium Potassium 2.9 L* Chloride 95.0 L Carbon Dioxide 31 H BUN 23 H Creatinine 0.2 L Glucose 45 L POC Glucose 215 H Hemoglobin A1c Magnesium Ferritin AST ALT Alkaline Phosphatase Lactate Dehydrogenase C-Reactive Protein Total Protein Albumin Arterial Blood Glucose Coronavirus (PCR) 06/21/21 06/21/21 06/21/21 07:38 09:06 12:40 WBC MCV MCH MCHC RDW Lymph % (Auto) [place] % (Auto) Eos % (Auto) Lymph # (Auto) [place] # (Auto) Eos # (Auto) Baso # (Auto) Seg Neutrophils % Seg Neuts % (Manual) Lymphocytes % (Manual) Seg Neutrophils # Seg Neutrophils # Man Lymphocytes # (Manual) D-Dimer ABG pH POC ABG pCO2 POC ABG pO2 ABG pO2 ABG HCO3 ABG O2 Saturation ABG Base Excess ABG Oxyhemoglobin ABG Sodium ABG Chloride ABG Glucose Oxyhemoglobin Carboxyhemoglobin Sodium Potassium Chloride Carbon Dioxide BUN Creatinine Glucose POC Glucose 50 L 196 H 205 H Hemoglobin A1c Magnesium Ferritin AST ALT Alkaline Phosphatase Lactate Dehydrogenase C-Reactive Protein Total Protein Albumin Arterial Blood Glucose Coronavirus (PCR) 06/21/21 06/22/21 06/22/21 21:36 06:25 07:15 WBC MCV MCH MCHC RDW Lymph % (Auto) [place] % (Auto) Eos % (Auto) Lymph # (Auto) [place] # (Auto) Eos # (Auto) Baso # (Auto) Seg Neutrophils % Seg Neuts % (Manual) Lymphocytes % (Manual) Seg Neutrophils # Seg Neutrophils # Man Lymphocytes # (Manual) D-Dimer ABG pH POC ABG pCO2 POC ABG pO2 ABG pO2 ABG HCO3 ABG O2 Saturation ABG Base Excess ABG Oxyhemoglobin ABG Sodium ABG Chloride ABG Glucose Oxyhemoglobin Carboxyhemoglobin Sodium Potassium Chloride Carbon Dioxide BUN 20 H Creatinine 0.2 L Glucose POC Glucose 245 H 66 L Hemoglobin A1c Magnesium Ferritin AST ALT Alkaline Phosphatase Lactate Dehydrogenase C-Reactive Protein Total Protein Albumin Arterial Blood Glucose Coronavirus (PCR) 06/22/21 06/22/21 06/22/21 11:03 16:07 22:03 WBC MCV MCH MCHC RDW Lymph % (Auto) [place] % (Auto) Eos % (Auto) Lymph # (Auto) [place] # (Auto) Eos # (Auto) Baso # (Auto) Seg Neutrophils % Seg Neuts % (Manual) Lymphocytes % (Manual) Seg Neutrophils # Seg Neutrophils # Man Lymphocytes # (Manual) D-Dimer ABG pH POC ABG pCO2 POC ABG pO2 ABG pO2 ABG HCO3 ABG O2 Saturation ABG Base Excess ABG Oxyhemoglobin ABG Sodium ABG Chloride ABG Glucose Oxyhemoglobin Carboxyhemoglobin Sodium Potassium Chloride Carbon Dioxide BUN Creatinine Glucose POC Glucose 184 H 326 H 138 H Hemoglobin A1c Magnesium Ferritin AST ALT Alkaline Phosphatase Lactate Dehydrogenase C-Reactive Protein Total Protein Albumin Arterial Blood Glucose Coronavirus (PCR) 06/23/21 06/23/21 06/23/21 07:19 10:34 16:35 WBC MCV MCH MCHC RDW Lymph % (Auto) [place] % (Auto) Eos % (Auto) Lymph # (Auto) [place] # (Auto) Eos # (Auto) Baso # (Auto) Seg Neutrophils % Seg Neuts % (Manual) Lymphocytes % (Manual) Seg Neutrophils # Seg Neutrophils # Man Lymphocytes # (Manual) D-Dimer ABG pH POC ABG pCO2 POC ABG pO2 ABG pO2 ABG HCO3 ABG O2 Saturation ABG Base Excess ABG Oxyhemoglobin ABG Sodium ABG Chloride ABG Glucose Oxyhemoglobin Carboxyhemoglobin Sodium Potassium Chloride Carbon Dioxide BUN Creatinine Glucose POC Glucose 69 L 218 H 326 H Hemoglobin A1c Magnesium Ferritin AST ALT Alkaline Phosphatase Lactate Dehydrogenase C-Reactive Protein Total Protein Albumin Arterial Blood Glucose Coronavirus (PCR) 06/23/21 06/24/21 06/24/21 22:44 11:41 16:54 WBC MCV MCH MCHC RDW Lymph % (Auto) [place] % (Auto) Eos % (Auto) Lymph # (Auto) [place] # (Auto) Eos # (Auto) Baso # (Auto) Seg Neutrophils % Seg Neuts % (Manual) Lymphocytes % (Manual) Seg Neutrophils # Seg Neutrophils # Man Lymphocytes # (Manual) D-Dimer ABG pH POC ABG pCO2 POC ABG pO2 ABG pO2 ABG HCO3 ABG O2 Saturation ABG Base Excess ABG Oxyhemoglobin ABG Sodium ABG Chloride ABG Glucose Oxyhemoglobin Carboxyhemoglobin Sodium Potassium Chloride Carbon Dioxide BUN Creatinine Glucose POC Glucose 252 H 217 H 357 H Hemoglobin A1c Magnesium Ferritin AST ALT Alkaline Phosphatase Lactate Dehydrogenase C-Reactive Protein Total Protein Albumin Arterial Blood Glucose Coronavirus (PCR) 06/24/21 06/25/21 06/25/21 20:40 11:51 16:47 WBC MCV MCH MCHC RDW Lymph % (Auto) [place] % (Auto) Eos % (Auto) Lymph # (Auto) [place] # (Auto) Eos # (Auto) Baso # (Auto) Seg Neutrophils % Seg Neuts % (Manual) Lymphocytes % (Manual) Seg Neutrophils # Seg Neutrophils # Man Lymphocytes # (Manual) D-Dimer ABG pH POC ABG pCO2 POC ABG pO2 ABG pO2 ABG HCO3 ABG O2 Saturation ABG Base Excess ABG Oxyhemoglobin ABG Sodium ABG Chloride ABG Glucose Oxyhemoglobin Carboxyhemoglobin Sodium Potassium Chloride Carbon Dioxide BUN Creatinine Glucose POC Glucose 239 H 182 H 229 H Hemoglobin A1c Magnesium Ferritin AST ALT Alkaline Phosphatase Lactate Dehydrogenase C-Reactive Protein Total Protein Albumin Arterial Blood Glucose Coronavirus (PCR) 06/25/21 06/26/21 06/26/21 22:27 07:20 12:19 WBC MCV MCH MCHC RDW Lymph % (Auto) [place] % (Auto) Eos % (Auto) Lymph # (Auto) [place] # (Auto) Eos # (Auto) Baso # (Auto) Seg Neutrophils % Seg Neuts % (Manual) Lymphocytes % (Manual) Seg Neutrophils # Seg Neutrophils # Man Lymphocytes # (Manual) D-Dimer ABG pH POC ABG pCO2 POC ABG pO2 ABG pO2 ABG HCO3 ABG O2 Saturation ABG Base Excess ABG Oxyhemoglobin ABG Sodium ABG Chloride ABG Glucose Oxyhemoglobin Carboxyhemoglobin Sodium Potassium 3.2 L D Chloride Carbon Dioxide BUN 20 H Creatinine 0.3 L Glucose POC Glucose 209 H 273 H Hemoglobin A1c Magnesium Ferritin AST ALT 77 H Alkaline Phosphatase Lactate Dehydrogenase C-Reactive Protein Total Protein Albumin 3.3 L Arterial Blood Glucose Coronavirus (PCR) 06/26/21 06/26/21 06/27/21 16:52 20:55 07:14 WBC MCV MCH MCHC RDW Lymph % (Auto) [place] % (Auto) Eos % (Auto) Lymph # (Auto) [place] # (Auto) Eos # (Auto) Baso # (Auto) Seg Neutrophils % Seg Neuts % (Manual) Lymphocytes % (Manual) Seg Neutrophils # Seg Neutrophils # Man Lymphocytes # (Manual) D-Dimer ABG pH POC ABG pCO2 POC ABG pO2 ABG pO2 ABG HCO3 ABG O2 Saturation ABG Base Excess ABG Oxyhemoglobin ABG Sodium ABG Chloride ABG Glucose Oxyhemoglobin Carboxyhemoglobin Sodium Potassium Chloride Carbon Dioxide 31 H BUN 19 H Creatinine 0.2 L Glucose 112 H POC Glucose 326 H 220 H Hemoglobin A1c Magnesium Ferritin AST ALT Alkaline Phosphatase Lactate Dehydrogenase C-Reactive Protein Total Protein Albumin Arterial Blood Glucose Coronavirus (PCR) 06/27/21 06/27/21 06/27/21 07:29 10:54 15:49 WBC MCV MCH MCHC RDW Lymph % (Auto) [place] % (Auto) Eos % (Auto) Lymph # (Auto) [place] # (Auto) Eos # (Auto) Baso # (Auto) Seg Neutrophils % Seg Neuts % (Manual) Lymphocytes % (Manual) Seg Neutrophils # Seg Neutrophils # Man Lymphocytes # (Manual) D-Dimer ABG pH POC ABG pCO2 POC ABG pO2 ABG pO2 ABG HCO3 ABG O2 Saturation ABG Base Excess ABG Oxyhemoglobin ABG Sodium ABG Chloride ABG Glucose Oxyhemoglobin Carboxyhemoglobin Sodium Potassium Chloride Carbon Dioxide BUN Creatinine Glucose POC Glucose 115 H 228 H 240 H Hemoglobin A1c Magnesium Ferritin AST ALT Alkaline Phosphatase Lactate Dehydrogenase C-Reactive Protein Total Protein Albumin Arterial Blood Glucose Coronavirus (PCR) 06/28/21 06/28/21 06/28/21 05:43 05:43 07:13 WBC MCV MCH 33 H MCHC RDW 19.8 H Lymph % (Auto) [place] % (Auto) Eos % (Auto) Lymph # (Auto) [place] # (Auto) Eos # (Auto) Baso # (Auto) Seg Neutrophils % Seg Neuts % (Manual) Lymphocytes % (Manual) Seg Neutrophils # Seg Neutrophils # Man Lymphocytes # (Manual) D-Dimer ABG pH POC ABG pCO2 POC ABG pO2 ABG pO2 ABG HCO3 ABG O2 Saturation ABG Base Excess ABG Oxyhemoglobin ABG Sodium ABG Chloride ABG Glucose Oxyhemoglobin Carboxyhemoglobin Sodium Potassium 3.3 L Chloride Carbon Dioxide BUN 22 H Creatinine 0.2 L Glucose POC Glucose 69 L Hemoglobin A1c Magnesium Ferritin AST ALT 63 H Alkaline Phosphatase Lactate Dehydrogenase C-Reactive Protein Total Protein Albumin 3.3 L Arterial Blood Glucose Coronavirus (PCR) 06/28/21 06/28/21 06/28/21 12:18 15:37 21:01 WBC MCV MCH MCHC RDW Lymph % (Auto) [place] % (Auto) Eos % (Auto) Lymph # (Auto) [place] # (Auto) Eos # (Auto) Baso # (Auto) Seg Neutrophils % Seg Neuts % (Manual) Lymphocytes % (Manual) Seg Neutrophils # Seg Neutrophils # Man Lymphocytes # (Manual) D-Dimer ABG pH POC ABG pCO2 POC ABG pO2 ABG pO2 ABG HCO3 ABG O2 Saturation ABG Base Excess ABG Oxyhemoglobin ABG Sodium ABG Chloride ABG Glucose Oxyhemoglobin Carboxyhemoglobin Sodium Potassium Chloride Carbon Dioxide BUN Creatinine Glucose POC Glucose 154 H 201 H 191 H Hemoglobin A1c Magnesium Ferritin AST ALT Alkaline Phosphatase Lactate Dehydrogenase C-Reactive Protein Total Protein Albumin Arterial Blood Glucose Coronavirus (PCR) 06/29/21 06/29/21 06/29/21 11:55 15:47 21:06 WBC MCV MCH MCHC RDW Lymph % (Auto) [place] % (Auto) Eos % (Auto) Lymph # (Auto) [place] # (Auto) Eos # (Auto) Baso # (Auto) Seg Neutrophils % Seg Neuts % (Manual) Lymphocytes % (Manual) Seg Neutrophils # Seg Neutrophils # Man Lymphocytes # (Manual) D-Dimer ABG pH POC ABG pCO2 POC ABG pO2 ABG pO2 ABG HCO3 ABG O2 Saturation ABG Base Excess ABG Oxyhemoglobin ABG Sodium ABG Chloride ABG Glucose Oxyhemoglobin Carboxyhemoglobin Sodium Potassium Chloride Carbon Dioxide BUN Creatinine Glucose POC Glucose 238 H 249 H 155 H Hemoglobin A1c Magnesium Ferritin AST ALT Alkaline Phosphatase Lactate Dehydrogenase C-Reactive Protein Total Protein Albumin Arterial Blood Glucose Coronavirus (PCR) 06/30/21 06/30/21 06/30/21 04:00 07:50 11:50 WBC MCV MCH MCHC RDW Lymph % (Auto) [place] % (Auto) Eos % (Auto) Lymph # (Auto) [place] # (Auto) Eos # (Auto) Baso # (Auto) Seg Neutrophils % Seg Neuts % (Manual) Lymphocytes % (Manual) Seg Neutrophils # Seg Neutrophils # Man Lymphocytes # (Manual) D-Dimer ABG pH POC ABG pCO2 POC ABG pO2 ABG pO2 ABG HCO3 ABG O2 Saturation ABG Base Excess ABG Oxyhemoglobin ABG Sodium ABG Chloride ABG Glucose Oxyhemoglobin Carboxyhemoglobin Sodium Potassium 3.5 L Chloride Carbon Dioxide BUN 18 H Creatinine 0.3 L Glucose 111 H POC Glucose 117 H 250 H Hemoglobin A1c Magnesium Ferritin AST ALT Alkaline Phosphatase Lactate Dehydrogenase C-Reactive Protein Total Protein Albumin Arterial Blood Glucose Coronavirus (PCR) 06/30/21 06/30/21 07/01/21 16:05 21:02 07:26 WBC MCV MCH MCHC RDW Lymph % (Auto) [place] % (Auto) Eos % (Auto) Lymph # (Auto) [place] # (Auto) Eos # (Auto) Baso # (Auto) Seg Neutrophils % Seg Neuts % (Manual) Lymphocytes % (Manual) Seg Neutrophils # Seg Neutrophils # Man Lymphocytes # (Manual) D-Dimer ABG pH POC ABG pCO2 POC ABG pO2 ABG pO2 ABG HCO3 ABG O2 Saturation ABG Base Excess ABG Oxyhemoglobin ABG Sodium ABG Chloride ABG Glucose Oxyhemoglobin Carboxyhemoglobin Sodium Potassium Chloride Carbon Dioxide BUN Creatinine Glucose POC Glucose 250 H 217 H 111 H Hemoglobin A1c Magnesium Ferritin AST ALT Alkaline Phosphatase Lactate Dehydrogenase C-Reactive Protein Total Protein Albumin Arterial Blood Glucose Coronavirus (PCR) 07/01/21 07/01/21 07/01/21 11:06 15:48 21:31 WBC MCV MCH MCHC RDW Lymph % (Auto) [place] % (Auto) Eos % (Auto) Lymph # (Auto) [place] # (Auto) Eos # (Auto) Baso # (Auto) Seg Neutrophils % Seg Neuts % (Manual) Lymphocytes % (Manual) Seg Neutrophils # Seg Neutrophils # Man Lymphocytes # (Manual) D-Dimer ABG pH POC ABG pCO2 POC ABG pO2 ABG pO2 ABG HCO3 ABG O2 Saturation ABG Base Excess ABG Oxyhemoglobin ABG Sodium ABG Chloride ABG Glucose Oxyhemoglobin Carboxyhemoglobin Sodium Potassium Chloride Carbon Dioxide BUN Creatinine Glucose POC Glucose 229 H 239 H 199 H Hemoglobin A1c Magnesium Ferritin AST ALT Alkaline Phosphatase Lactate Dehydrogenase C-Reactive Protein Total Protein Albumin Arterial Blood Glucose Coronavirus (PCR) 07/02/21 07/02/21 07/02/21 11:50 16:44 21:49 WBC MCV MCH MCHC RDW Lymph % (Auto) [place] % (Auto) Eos % (Auto) Lymph # (Auto) [place] # (Auto) Eos # (Auto) Baso # (Auto) Seg Neutrophils % Seg Neuts % (Manual) Lymphocytes % (Manual) Seg Neutrophils # Seg Neutrophils # Man Lymphocytes # (Manual) D-Dimer ABG pH POC ABG pCO2 POC ABG pO2 ABG pO2 ABG HCO3 ABG O2 Saturation ABG Base Excess ABG Oxyhemoglobin ABG Sodium ABG Chloride ABG Glucose Oxyhemoglobin Carboxyhemoglobin Sodium Potassium Chloride Carbon Dioxide BUN Creatinine Glucose POC Glucose 230 H 203 H 197 H Hemoglobin A1c Magnesium Ferritin AST ALT Alkaline Phosphatase Lactate Dehydrogenase C-Reactive Protein Total Protein Albumin Arterial Blood Glucose Coronavirus (PCR) 07/03/21 07/03/21 07/03/21 05:46 05:46 11:59 WBC MCV MCH MCHC RDW 19.6 H Lymph % (Auto) [place] % (Auto) Eos % (Auto) Lymph # (Auto) [place] # (Auto) Eos # (Auto) Baso # (Auto) Seg Neutrophils % Seg Neuts % (Manual) Lymphocytes % (Manual) Seg Neutrophils # Seg Neutrophils # Man Lymphocytes # (Manual) D-Dimer ABG pH POC ABG pCO2 POC ABG pO2 ABG pO2 ABG HCO3 ABG O2 Saturation ABG Base Excess ABG Oxyhemoglobin ABG Sodium ABG Chloride ABG Glucose Oxyhemoglobin Carboxyhemoglobin Sodium Potassium 3.2 L Chloride Carbon Dioxide BUN Creatinine 0.3 L Glucose POC Glucose 145 H Hemoglobin A1c Magnesium Ferritin AST ALT Alkaline Phosphatase Lactate Dehydrogenase C-Reactive Protein Total Protein Albumin Arterial Blood Glucose Coronavirus (PCR) 07/03/21 07/03/21 07/04/21 16:40 22:00 06:35 WBC MCV MCH MCHC RDW Lymph % (Auto) [place] % (Auto) Eos % (Auto) Lymph # (Auto) [place] # (Auto) Eos # (Auto) Baso # (Auto) Seg Neutrophils % Seg Neuts % (Manual) Lymphocytes % (Manual) Seg Neutrophils # Seg Neutrophils # Man Lymphocytes # (Manual) D-Dimer ABG pH POC ABG pCO2 POC ABG pO2 ABG pO2 ABG HCO3 ABG O2 Saturation ABG Base Excess ABG Oxyhemoglobin ABG Sodium ABG Chloride ABG Glucose Oxyhemoglobin Carboxyhemoglobin Sodium Potassium Chloride Carbon Dioxide BUN Creatinine 0.3 L Glucose 118 H POC Glucose 176 H 127 H Hemoglobin A1c Magnesium Ferritin AST ALT Alkaline Phosphatase Lactate Dehydrogenase C-Reactive Protein Total Protein Albumin Arterial Blood Glucose Coronavirus (PCR) 07/04/21 07/04/21 07/05/21 12:30 16:38 08:37 WBC MCV MCH MCHC RDW Lymph % (Auto) [place] % (Auto) Eos % (Auto) Lymph # (Auto) [place] # (Auto) Eos # (Auto) Baso # (Auto) Seg Neutrophils % Seg Neuts % (Manual) Lymphocytes % (Manual) Seg Neutrophils # Seg Neutrophils # Man Lymphocytes # (Manual) D-Dimer ABG pH POC ABG pCO2 POC ABG pO2 ABG pO2 ABG HCO3 ABG O2 Saturation ABG Base Excess ABG Oxyhemoglobin ABG Sodium ABG Chloride ABG Glucose Oxyhemoglobin Carboxyhemoglobin Sodium Potassium Chloride Carbon Dioxide BUN Creatinine Glucose POC Glucose 162 H 205 H 115 H Hemoglobin A1c Magnesium Ferritin AST ALT Alkaline Phosphatase Lactate Dehydrogenase C-Reactive Protein Total Protein Albumin Arterial Blood Glucose Coronavirus (PCR) 07/05/21 07/05/21 07/05/21 10:57 16:42 21:14 WBC MCV MCH MCHC RDW Lymph % (Auto) [place] % (Auto) Eos % (Auto) Lymph # (Auto) [place] # (Auto) Eos # (Auto) Baso # (Auto) Seg Neutrophils % Seg Neuts % (Manual) Lymphocytes % (Manual) Seg Neutrophils # Seg Neutrophils # Man Lymphocytes # (Manual) D-Dimer ABG pH POC ABG pCO2 POC ABG pO2 ABG pO2 ABG HCO3 ABG O2 Saturation ABG Base Excess ABG Oxyhemoglobin ABG Sodium ABG Chloride ABG Glucose Oxyhemoglobin Carboxyhemoglobin Sodium Potassium Chloride Carbon Dioxide BUN Creatinine Glucose POC Glucose 151 H 184 H 130 H Hemoglobin A1c Magnesium Ferritin AST ALT Alkaline Phosphatase Lactate Dehydrogenase C-Reactive Protein Total Protein Albumin Arterial Blood Glucose Coronavirus (PCR) 07/06/21 07/06/21 07/06/21 07:31 11:49 16:46 WBC MCV MCH MCHC RDW Lymph % (Auto) [place] % (Auto) Eos % (Auto) Lymph # (Auto) [place] # (Auto) Eos # (Auto) Baso # (Auto) Seg Neutrophils % Seg Neuts % (Manual) Lymphocytes % (Manual) Seg Neutrophils # Seg Neutrophils # Man Lymphocytes # (Manual) D-Dimer ABG pH POC ABG pCO2 POC ABG pO2 ABG pO2 ABG HCO3 ABG O2 Saturation ABG Base Excess ABG Oxyhemoglobin ABG Sodium ABG Chloride ABG Glucose Oxyhemoglobin Carboxyhemoglobin Sodium Potassium Chloride Carbon Dioxide BUN Creatinine Glucose POC Glucose 106 H 173 H 205 H Hemoglobin A1c Magnesium Ferritin AST ALT Alkaline Phosphatase Lactate Dehydrogenase C-Reactive Protein Total Protein Albumin Arterial Blood Glucose Coronavirus (PCR) 07/06/21 07/07/21 07/07/21 21:38 06:00 06:00 WBC 16.1 H MCV MCH MCHC RDW 18.8 H Lymph % (Auto) [place] % (Auto) Eos % (Auto) Lymph # (Auto) [place] # (Auto) 1.1 H Eos # (Auto) Baso # (Auto) 0.2 H Seg Neutrophils % 74.9 H Seg Neuts % (Manual) Lymphocytes % (Manual) Seg Neutrophils # 12.1 H Seg Neutrophils # Man Lymphocytes # (Manual) D-Dimer ABG pH POC ABG pCO2 POC ABG pO2 ABG pO2 ABG HCO3 ABG O2 Saturation ABG Base Excess ABG Oxyhemoglobin ABG Sodium ABG Chloride ABG Glucose Oxyhemoglobin Carboxyhemoglobin Sodium Potassium 3.5 L D Chloride Carbon Dioxide BUN 6 L Creatinine < 0.2 L Glucose 106 H POC Glucose 120 H Hemoglobin A1c Magnesium Ferritin AST ALT Alkaline Phosphatase Lactate Dehydrogenase C-Reactive Protein Total Protein Albumin Arterial Blood Glucose Coronavirus (PCR) 07/07/21 07/07/21 07/07/21 07:10 11:53 15:53 WBC MCV MCH MCHC RDW Lymph % (Auto) [place] % (Auto) Eos % (Auto) Lymph # (Auto) [place] # (Auto) Eos # (Auto) Baso # (Auto) Seg Neutrophils % Seg Neuts % (Manual) Lymphocytes % (Manual) Seg Neutrophils # Seg Neutrophils # Man Lymphocytes # (Manual) D-Dimer ABG pH POC ABG pCO2 POC ABG pO2 ABG pO2 ABG HCO3 ABG O2 Saturation ABG Base Excess ABG Oxyhemoglobin ABG Sodium ABG Chloride ABG Glucose Oxyhemoglobin Carboxyhemoglobin Sodium Potassium Chloride Carbon Dioxide BUN Creatinine Glucose POC Glucose 132 H 169 H 242 H Hemoglobin A1c Magnesium Ferritin AST ALT Alkaline Phosphatase Lactate Dehydrogenase C-Reactive Protein Total Protein Albumin Arterial Blood Glucose Coronavirus (PCR) 07/07/21 07/08/21 07/08/21 21:41 08:09 12:20 WBC MCV MCH MCHC RDW Lymph % (Auto) [place] % (Auto) Eos % (Auto) Lymph # (Auto) [place] # (Auto) Eos # (Auto) Baso # (Auto) Seg Neutrophils % Seg Neuts % (Manual) Lymphocytes % (Manual) Seg Neutrophils # Seg Neutrophils # Man Lymphocytes # (Manual) D-Dimer ABG pH POC ABG pCO2 POC ABG pO2 ABG pO2 ABG HCO3 ABG O2 Saturation ABG Base Excess ABG Oxyhemoglobin ABG Sodium ABG Chloride ABG Glucose Oxyhemoglobin Carboxyhemoglobin Sodium Potassium Chloride Carbon Dioxide BUN Creatinine Glucose POC Glucose 128 H 132 H 179 H Hemoglobin A1c Magnesium Ferritin AST ALT Alkaline Phosphatase Lactate Dehydrogenase C-Reactive Protein Total Protein Albumin Arterial Blood Glucose Coronavirus (PCR) 07/08/21 07/08/21 07/08/21 16:37 21:45 22:44 WBC MCV MCH MCHC RDW Lymph % (Auto) [place] % (Auto) Eos % (Auto) Lymph # (Auto) [place] # (Auto) Eos # (Auto) Baso # (Auto) Seg Neutrophils % Seg Neuts % (Manual) Lymphocytes % (Manual) Seg Neutrophils # Seg Neutrophils # Man Lymphocytes # (Manual) D-Dimer ABG pH POC ABG pCO2 POC ABG pO2 ABG pO2 ABG HCO3 ABG O2 Saturation ABG Base Excess ABG Oxyhemoglobin ABG Sodium ABG Chloride ABG Glucose Oxyhemoglobin Carboxyhemoglobin Sodium Potassium Chloride Carbon Dioxide BUN Creatinine Glucose POC Glucose 192 H 51 L 137 H Hemoglobin A1c Magnesium Ferritin AST ALT Alkaline Phosphatase Lactate Dehydrogenase C-Reactive Protein Total Protein Albumin Arterial Blood Glucose Coronavirus (PCR) 07/09/21 07/09/21 07/09/21 04:45 04:45 04:45 WBC MCV MCH MCHC RDW 18.3 H Lymph % (Auto) [place] % (Auto) Eos % (Auto) Lymph # (Auto) [place] # (Auto) Eos # (Auto) Baso # (Auto) Seg Neutrophils % Seg Neuts % (Manual) 82.0 H Lymphocytes % (Manual) 13.0 L Seg Neutrophils # Seg Neutrophils # Man 7.8 H Lymphocytes # (Manual) D-Dimer 638.35 H ABG pH POC ABG pCO2 POC ABG pO2 ABG pO2 ABG HCO3 ABG O2 Saturation ABG Base Excess ABG Oxyhemoglobin ABG Sodium ABG Chloride ABG Glucose Oxyhemoglobin Carboxyhemoglobin Sodium Potassium Chloride 96.9 L Carbon Dioxide 35 H BUN Creatinine 0.2 L Glucose 135 H POC Glucose Hemoglobin A1c Magnesium Ferritin AST ALT Alkaline Phosphatase Lactate Dehydrogenase C-Reactive Protein 4.30 H Total Protein Albumin Arterial Blood Glucose Coronavirus (PCR) 07/09/21 07/09/21 07/09/21 05:19 07:36 11:16 WBC MCV MCH MCHC RDW Lymph % (Auto) [place] % (Auto) Eos % (Auto) Lymph # (Auto) [place] # (Auto) Eos # (Auto) Baso # (Auto) Seg Neutrophils % Seg Neuts % (Manual) Lymphocytes % (Manual) Seg Neutrophils # Seg Neutrophils # Man Lymphocytes # (Manual) D-Dimer ABG pH POC ABG pCO2 POC ABG pO2 ABG pO2 ABG HCO3 ABG O2 Saturation ABG Base Excess ABG Oxyhemoglobin ABG Sodium ABG Chloride ABG Glucose Oxyhemoglobin Carboxyhemoglobin Sodium Potassium Chloride Carbon Dioxide BUN Creatinine Glucose POC Glucose 135 H 148 H 212 H Hemoglobin A1c Magnesium Ferritin AST ALT Alkaline Phosphatase Lactate Dehydrogenase C-Reactive Protein Total Protein Albumin Arterial Blood Glucose Coronavirus (PCR) 07/09/21 07/09/21 07/10/21 15:21 21:12 05:40 WBC MCV MCH MCHC RDW Lymph % (Auto) [place] % (Auto) Eos % (Auto) Lymph # (Auto) [place] # (Auto) Eos # (Auto) Baso # (Auto) Seg Neutrophils % Seg Neuts % (Manual) Lymphocytes % (Manual) Seg Neutrophils # Seg Neutrophils # Man Lymphocytes # (Manual) D-Dimer ABG pH POC ABG pCO2 POC ABG pO2 ABG pO2 ABG HCO3 ABG O2 Saturation ABG Base Excess ABG Oxyhemoglobin ABG Sodium ABG Chloride ABG Glucose Oxyhemoglobin Carboxyhemoglobin Sodium Potassium 3.3 L Chloride 95.1 L Carbon Dioxide 39 H BUN Creatinine 0.2 L Glucose 122 H POC Glucose 128 H 196 H Hemoglobin A1c Magnesium Ferritin AST ALT Alkaline Phosphatase Lactate Dehydrogenase C-Reactive Protein Total Protein Albumin Arterial Blood Glucose Coronavirus (PCR) 07/10/21 07/10/21 07/10/21 07:38 11:15 16:29 WBC MCV MCH MCHC RDW Lymph % (Auto) [place] % (Auto) Eos % (Auto) Lymph # (Auto) [place] # (Auto) Eos # (Auto) Baso # (Auto) Seg Neutrophils % Seg Neuts % (Manual) Lymphocytes % (Manual) Seg Neutrophils # Seg Neutrophils # Man Lymphocytes # (Manual) D-Dimer ABG pH POC ABG pCO2 POC ABG pO2 ABG pO2 ABG HCO3 ABG O2 Saturation ABG Base Excess ABG Oxyhemoglobin ABG Sodium ABG Chloride ABG Glucose Oxyhemoglobin Carboxyhemoglobin Sodium Potassium Chloride Carbon Dioxide BUN Creatinine Glucose POC Glucose 128 H 175 H 174 H Hemoglobin A1c Magnesium Ferritin AST ALT Alkaline Phosphatase Lactate Dehydrogenase C-Reactive Protein Total Protein Albumin Arterial Blood Glucose Coronavirus (PCR) 07/10/21 07/11/21 07/11/21 20:49 05:50 12:08 WBC MCV MCH MCHC RDW Lymph % (Auto) [place] % (Auto) Eos % (Auto) Lymph # (Auto) [place] # (Auto) Eos # (Auto) Baso # (Auto) Seg Neutrophils % Seg Neuts % (Manual) Lymphocytes % (Manual) Seg Neutrophils # Seg Neutrophils # Man Lymphocytes # (Manual) D-Dimer ABG pH POC ABG pCO2 POC ABG pO2 ABG pO2 ABG HCO3 ABG O2 Saturation ABG Base Excess ABG Oxyhemoglobin ABG Sodium ABG Chloride ABG Glucose Oxyhemoglobin Carboxyhemoglobin Sodium Potassium Chloride 97.3 L Carbon Dioxide 34 H BUN Creatinine 0.2 L Glucose 109 H POC Glucose 142 H 220 H Hemoglobin A1c Magnesium Ferritin AST ALT Alkaline Phosphatase Lactate Dehydrogenase C-Reactive Protein Total Protein Albumin Arterial Blood Glucose Coronavirus (PCR) 07/11/21 07/11/21 07/12/21 17:09 21:55 07:36 WBC MCV MCH MCHC RDW Lymph % (Auto) [place] % (Auto) Eos % (Auto) Lymph # (Auto) [place] # (Auto) Eos # (Auto) Baso # (Auto) Seg Neutrophils % Seg Neuts % (Manual) Lymphocytes % (Manual) Seg Neutrophils # Seg Neutrophils # Man Lymphocytes # (Manual) D-Dimer ABG pH POC ABG pCO2 POC ABG pO2 ABG pO2 ABG HCO3 ABG O2 Saturation ABG Base Excess ABG Oxyhemoglobin ABG Sodium ABG Chloride ABG Glucose Oxyhemoglobin Carboxyhemoglobin Sodium Potassium Chloride Carbon Dioxide BUN Creatinine Glucose POC Glucose 219 H 124 H 114 H Hemoglobin A1c Magnesium Ferritin AST ALT Alkaline Phosphatase Lactate Dehydrogenase C-Reactive Protein Total Protein Albumin Arterial Blood Glucose Coronavirus (PCR) 07/12/21 07/12/21 07/12/21 11:08 15:43 22:20 WBC MCV MCH MCHC RDW Lymph % (Auto) [place] % (Auto) Eos % (Auto) Lymph # (Auto) [place] # (Auto) Eos # (Auto) Baso # (Auto) Seg Neutrophils % Seg Neuts % (Manual) Lymphocytes % (Manual) Seg Neutrophils # Seg Neutrophils # Man Lymphocytes # (Manual) D-Dimer ABG pH POC ABG pCO2 POC ABG pO2 ABG pO2 ABG HCO3 ABG O2 Saturation ABG Base Excess ABG Oxyhemoglobin ABG Sodium ABG Chloride ABG Glucose Oxyhemoglobin Carboxyhemoglobin Sodium Potassium Chloride Carbon Dioxide BUN Creatinine Glucose POC Glucose 195 H 276 H 189 H Hemoglobin A1c Magnesium Ferritin AST ALT Alkaline Phosphatase Lactate Dehydrogenase C-Reactive Protein Total Protein Albumin Arterial Blood Glucose Coronavirus (PCR) 07/13/21 07/13/21 07/13/21 08:01 08:08 10:17 WBC MCV MCH MCHC RDW Lymph % (Auto) [place] % (Auto) Eos % (Auto) Lymph # (Auto) [place] # (Auto) Eos # (Auto) Baso # (Auto) Seg Neutrophils % Seg Neuts % (Manual) Lymphocytes % (Manual) Seg Neutrophils # Seg Neutrophils # Man Lymphocytes # (Manual) D-Dimer ABG pH POC ABG pCO2 POC ABG pO2 ABG pO2 ABG HCO3 ABG O2 Saturation ABG Base Excess ABG Oxyhemoglobin ABG Sodium ABG Chloride ABG Glucose Oxyhemoglobin Carboxyhemoglobin Sodium Potassium Chloride 94.4 L Carbon Dioxide 34 H BUN Creatinine 0.3 L Glucose 149 H POC Glucose 132 H 265 H Hemoglobin A1c Magnesium Ferritin AST ALT Alkaline Phosphatase Lactate Dehydrogenase C-Reactive Protein Total Protein Albumin Arterial Blood Glucose Coronavirus (PCR) 07/13/21 07/13/21 07/14/21 17:58 21:41 07:34 WBC MCV MCH MCHC RDW Lymph % (Auto) [place] % (Auto) Eos % (Auto) Lymph # (Auto) [place] # (Auto) Eos # (Auto) Baso # (Auto) Seg Neutrophils % Seg Neuts % (Manual) Lymphocytes % (Manual) Seg Neutrophils # Seg Neutrophils # Man Lymphocytes # (Manual) D-Dimer ABG pH POC ABG pCO2 POC ABG pO2 ABG pO2 ABG HCO3 ABG O2 Saturation ABG Base Excess ABG Oxyhemoglobin ABG Sodium ABG Chloride ABG Glucose Oxyhemoglobin Carboxyhemoglobin Sodium Potassium Chloride Carbon Dioxide BUN Creatinine Glucose POC Glucose 217 H 223 H 116 H Hemoglobin A1c Magnesium Ferritin AST ALT Alkaline Phosphatase Lactate Dehydrogenase C-Reactive Protein Total Protein Albumin Arterial Blood Glucose Coronavirus (PCR) 07/14/21 07/14/21 07/14/21 10:50 17:33 20:51 WBC MCV MCH MCHC RDW Lymph % (Auto) [place] % (Auto) Eos % (Auto) Lymph # (Auto) [place] # (Auto) Eos # (Auto) Baso # (Auto) Seg Neutrophils % Seg Neuts % (Manual) Lymphocytes % (Manual) Seg Neutrophils # Seg Neutrophils # Man Lymphocytes # (Manual) D-Dimer ABG pH POC ABG pCO2 POC ABG pO2 ABG pO2 ABG HCO3 ABG O2 Saturation ABG Base Excess ABG Oxyhemoglobin ABG Sodium ABG Chloride ABG Glucose Oxyhemoglobin Carboxyhemoglobin Sodium Potassium Chloride Carbon Dioxide BUN Creatinine Glucose POC Glucose 191 H 173 H 132 H Hemoglobin A1c Magnesium Ferritin AST ALT Alkaline Phosphatase Lactate Dehydrogenase C-Reactive Protein Total Protein Albumin Arterial Blood Glucose Coronavirus (PCR) 07/15/21 07/15/21 07/15/21 04:00 07:59 12:31 WBC MCV MCH MCHC RDW Lymph % (Auto) [place] % (Auto) Eos % (Auto) Lymph # (Auto) [place] # (Auto) Eos # (Auto) Baso # (Auto) Seg Neutrophils % Seg Neuts % (Manual) Lymphocytes % (Manual) Seg Neutrophils # Seg Neutrophils # Man Lymphocytes # (Manual) D-Dimer ABG pH POC ABG pCO2 POC ABG pO2 ABG pO2 ABG HCO3 ABG O2 Saturation ABG Base Excess ABG Oxyhemoglobin ABG Sodium ABG Chloride ABG Glucose Oxyhemoglobin Carboxyhemoglobin Sodium Potassium Chloride 96.0 L Carbon Dioxide 32 H BUN Creatinine 0.3 L Glucose 208 H POC Glucose 117 H 195 H Hemoglobin A1c Magnesium Ferritin AST ALT Alkaline Phosphatase Lactate Dehydrogenase C-Reactive Protein Total Protein Albumin Arterial Blood Glucose Coronavirus (PCR) 07/15/21 07/15/21 07/16/21 18:00 20:57 04:40 WBC MCV MCH MCHC RDW 17.1 H Lymph % (Auto) [place] % (Auto) Eos % (Auto) Lymph # (Auto) [place] # (Auto) Eos # (Auto) Baso # (Auto) Seg Neutrophils % Seg Neuts % (Manual) Lymphocytes % (Manual) Seg Neutrophils # Seg Neutrophils # Man Lymphocytes # (Manual) D-Dimer ABG pH POC ABG pCO2 POC ABG pO2 ABG pO2 ABG HCO3 ABG O2 Saturation ABG Base Excess ABG Oxyhemoglobin ABG Sodium ABG Chloride ABG Glucose Oxyhemoglobin Carboxyhemoglobin Sodium Potassium Chloride Carbon Dioxide BUN Creatinine Glucose POC Glucose 217 H 111 H Hemoglobin A1c Magnesium Ferritin AST ALT Alkaline Phosphatase Lactate Dehydrogenase C-Reactive Protein Total Protein Albumin Arterial Blood Glucose Coronavirus (PCR) 07/16/21 07/16/21 07/16/21 04:40 07:08 11:11 WBC MCV MCH MCHC RDW Lymph % (Auto) [place] % (Auto) Eos % (Auto) Lymph # (Auto) [place] # (Auto) Eos # (Auto) Baso # (Auto) Seg Neutrophils % Seg Neuts % (Manual) Lymphocytes % (Manual) Seg Neutrophils # Seg Neutrophils # Man Lymphocytes # (Manual) D-Dimer ABG pH POC ABG pCO2 POC ABG pO2 ABG pO2 ABG HCO3 ABG O2 Saturation ABG Base Excess ABG Oxyhemoglobin ABG Sodium ABG Chloride ABG Glucose Oxyhemoglobin Carboxyhemoglobin Sodium Potassium 3.4 L Chloride 94.6 L Carbon Dioxide 36 H BUN Creatinine < 0.2 L Glucose 101 H POC Glucose 118 H 184 H Hemoglobin A1c Magnesium Ferritin AST ALT Alkaline Phosphatase Lactate Dehydrogenase C-Reactive Protein Total Protein Albumin Arterial Blood Glucose Coronavirus (PCR) 07/16/21 07/16/21 07/17/21 17:29 22:01 08:10 WBC MCV MCH MCHC RDW Lymph % (Auto) [place] % (Auto) Eos % (Auto) Lymph # (Auto) [place] # (Auto) Eos # (Auto) Baso # (Auto) Seg Neutrophils % Seg Neuts % (Manual) Lymphocytes % (Manual) Seg Neutrophils # Seg Neutrophils # Man Lymphocytes # (Manual) D-Dimer ABG pH POC ABG pCO2 POC ABG pO2 ABG pO2 ABG HCO3 ABG O2 Saturation ABG Base Excess ABG Oxyhemoglobin ABG Sodium ABG Chloride ABG Glucose Oxyhemoglobin Carboxyhemoglobin Sodium Potassium Chloride Carbon Dioxide BUN Creatinine Glucose POC Glucose 200 H 147 H 118 H Hemoglobin A1c Magnesium Ferritin AST ALT Alkaline Phosphatase Lactate Dehydrogenase C-Reactive Protein Total Protein Albumin Arterial Blood Glucose Coronavirus (PCR) 07/17/21 07/17/21 07/17/21 11:38 16:24 21:13 WBC MCV MCH MCHC RDW Lymph % (Auto) [place] % (Auto) Eos % (Auto) Lymph # (Auto) [place] # (Auto) Eos # (Auto) Baso # (Auto) Seg Neutrophils % Seg Neuts % (Manual) Lymphocytes % (Manual) Seg Neutrophils # Seg Neutrophils # Man Lymphocytes # (Manual) D-Dimer ABG pH POC ABG pCO2 POC ABG pO2 ABG pO2 ABG HCO3 ABG O2 Saturation ABG Base Excess ABG Oxyhemoglobin ABG Sodium ABG Chloride ABG Glucose Oxyhemoglobin Carboxyhemoglobin Sodium Potassium Chloride Carbon Dioxide BUN Creatinine Glucose POC Glucose 151 H 268 H 115 H Hemoglobin A1c Magnesium Ferritin AST ALT Alkaline Phosphatase Lactate Dehydrogenase C-Reactive Protein Total Protein Albumin Arterial Blood Glucose Coronavirus (PCR) 07/18/21 07/18/21 07/18/21 07:58 12:29 20:24 WBC MCV MCH MCHC RDW Lymph % (Auto) [place] % (Auto) Eos % (Auto) Lymph # (Auto) [place] # (Auto) Eos # (Auto) Baso # (Auto) Seg Neutrophils % Seg Neuts % (Manual) Lymphocytes % (Manual) Seg Neutrophils # Seg Neutrophils # Man Lymphocytes # (Manual) D-Dimer ABG pH POC ABG pCO2 POC ABG pO2 ABG pO2 ABG HCO3 ABG O2 Saturation ABG Base Excess ABG Oxyhemoglobin ABG Sodium ABG Chloride ABG Glucose Oxyhemoglobin Carboxyhemoglobin Sodium Potassium Chloride Carbon Dioxide BUN Creatinine Glucose POC Glucose 135 H 139 H 130 H Hemoglobin A1c Magnesium Ferritin AST ALT Alkaline Phosphatase Lactate Dehydrogenase C-Reactive Protein Total Protein Albumin Arterial Blood Glucose Coronavirus (PCR) 07/19/21 07/19/21 07/19/21 06:55 06:55 07:54 WBC 14.5 H MCV MCH MCHC RDW 17.3 H Lymph % (Auto) 9.6 L [place] % (Auto) Eos % (Auto) Lymph # (Auto) [place] # (Auto) Eos # (Auto) 0.6 H Baso # (Auto) Seg Neutrophils % 80.3 H Seg Neuts % (Manual) Lymphocytes % (Manual) Seg Neutrophils # 11.7 H Seg Neutrophils # Man Lymphocytes # (Manual) D-Dimer ABG pH POC ABG pCO2 67.9 H POC ABG pO2 131.0 H ABG pO2 ABG HCO3 ABG O2 Saturation ABG Base Excess ABG Oxyhemoglobin ABG Sodium ABG Chloride 97.0 L ABG Glucose 133 H Oxyhemoglobin Carboxyhemoglobin Sodium Potassium Chloride 95.3 L Carbon Dioxide 35 H BUN Creatinine < 0.2 L Glucose 138 H POC Glucose Hemoglobin A1c Magnesium Ferritin AST ALT Alkaline Phosphatase Lactate Dehydrogenase C-Reactive Protein Total Protein Albumin Arterial Blood Glucose 133 H Coronavirus (PCR) 07/19/21 07/19/21 07/19/21 08:10 11:43 17:04 WBC MCV MCH MCHC RDW Lymph % (Auto) [place] % (Auto) Eos % (Auto) Lymph # (Auto) [place] # (Auto) Eos # (Auto) Baso # (Auto) Seg Neutrophils % Seg Neuts % (Manual) Lymphocytes % (Manual) Seg Neutrophils # Seg Neutrophils # Man Lymphocytes # (Manual) D-Dimer ABG pH POC ABG pCO2 POC ABG pO2 ABG pO2 ABG HCO3 ABG O2 Saturation ABG Base Excess ABG Oxyhemoglobin ABG Sodium ABG Chloride ABG Glucose Oxyhemoglobin Carboxyhemoglobin Sodium Potassium Chloride Carbon Dioxide BUN Creatinine Glucose POC Glucose 129 H 126 H 108 H Hemoglobin A1c Magnesium Ferritin AST ALT Alkaline Phosphatase Lactate Dehydrogenase C-Reactive Protein Total Protein Albumin Arterial Blood Glucose Coronavirus (PCR) 07/19/21 07/20/21 07/20/21 21:10 04:00 04:00 WBC MCV MCH MCHC RDW 17.0 H Lymph % (Auto) [place] % (Auto) 8.9 H Eos % (Auto) 6.3 H Lymph # (Auto) [place] # (Auto) 0.9 H Eos # (Auto) 0.6 H Baso # (Auto) Seg Neutrophils % 70.2 H Seg Neuts % (Manual) Lymphocytes % (Manual) Seg Neutrophils # Seg Neutrophils # Man Lymphocytes # (Manual) D-Dimer ABG pH POC ABG pCO2 POC ABG pO2 ABG pO2 ABG HCO3 ABG O2 Saturation ABG Base Excess ABG Oxyhemoglobin ABG Sodium ABG Chloride ABG Glucose Oxyhemoglobin Carboxyhemoglobin Sodium Potassium Chloride 96.7 L Carbon Dioxide 36 H BUN Creatinine 0.2 L Glucose 102 H POC Glucose 109 H Hemoglobin A1c Magnesium Ferritin AST ALT Alkaline Phosphatase Lactate Dehydrogenase C-Reactive Protein Total Protein Albumin 3.2 L Arterial Blood Glucose Coronavirus (PCR) 07/20/21 07/20/21 07/20/21 11:15 15:34 17:01 WBC MCV MCH MCHC RDW Lymph % (Auto) [place] % (Auto) Eos % (Auto) Lymph # (Auto) [place] # (Auto) Eos # (Auto) Baso # (Auto) Seg Neutrophils % Seg Neuts % (Manual) Lymphocytes % (Manual) Seg Neutrophils # Seg Neutrophils # Man Lymphocytes # (Manual) D-Dimer ABG pH POC ABG pCO2 POC ABG pO2 ABG pO2 ABG HCO3 ABG O2 Saturation ABG Base Excess ABG Oxyhemoglobin ABG Sodium ABG Chloride ABG Glucose Oxyhemoglobin Carboxyhemoglobin Sodium Potassium Chloride Carbon Dioxide BUN Creatinine Glucose POC Glucose 109 H 152 H 125 H Hemoglobin A1c Magnesium Ferritin AST ALT Alkaline Phosphatase Lactate Dehydrogenase C-Reactive Protein Total Protein Albumin Arterial Blood Glucose Coronavirus (PCR) 07/20/21 07/21/21 07/21/21 21:00 04:48 04:48 WBC 12.8 H MCV MCH MCHC RDW 16.8 H Lymph % (Auto) 9.3 L [place] % (Auto) Eos % (Auto) Lymph # (Auto) [place] # (Auto) 0.9 H Eos # (Auto) Baso # (Auto) Seg Neutrophils % 81.1 H Seg Neuts % (Manual) Lymphocytes % (Manual) Seg Neutrophils # 10.4 H Seg Neutrophils # Man Lymphocytes # (Manual) D-Dimer ABG pH POC ABG pCO2 POC ABG pO2 ABG pO2 ABG HCO3 ABG O2 Saturation ABG Base Excess ABG Oxyhemoglobin ABG Sodium ABG Chloride ABG Glucose Oxyhemoglobin Carboxyhemoglobin Sodium Potassium Chloride 95.4 L Carbon Dioxide 33 H BUN 6 L Creatinine < 0.2 L Glucose 155 H POC Glucose 211 H Hemoglobin A1c Magnesium 1.60 L Ferritin AST ALT Alkaline Phosphatase Lactate Dehydrogenase C-Reactive Protein Total Protein Albumin Arterial Blood Glucose Coronavirus (PCR) 07/21/21 07/21/21 07/21/21 07:52 11:05 17:01 WBC MCV MCH MCHC RDW Lymph % (Auto) [place] % (Auto) Eos % (Auto) Lymph # (Auto) [place] # (Auto) Eos # (Auto) Baso # (Auto) Seg Neutrophils % Seg Neuts % (Manual) Lymphocytes % (Manual) Seg Neutrophils # Seg Neutrophils # Man Lymphocytes # (Manual) D-Dimer ABG pH POC ABG pCO2 POC ABG pO2 ABG pO2 ABG HCO3 ABG O2 Saturation ABG Base Excess ABG Oxyhemoglobin ABG Sodium ABG Chloride ABG Glucose Oxyhemoglobin Carboxyhemoglobin Sodium Potassium Chloride Carbon Dioxide BUN Creatinine Glucose POC Glucose 116 H 207 H 133 H Hemoglobin A1c Magnesium Ferritin AST ALT Alkaline Phosphatase Lactate Dehydrogenase C-Reactive Protein Total Protein Albumin Arterial Blood Glucose Coronavirus (PCR) 07/21/21 07/22/21 07/22/21 21:17 07:55 07:55 WBC MCV MCH MCHC RDW 16.5 H Lymph % (Auto) [place] % (Auto) 8.6 H Eos % (Auto) Lymph # (Auto) [place] # (Auto) Eos # (Auto) Baso # (Auto) Seg Neutrophils % 72.3 H Seg Neuts % (Manual) Lymphocytes % (Manual) Seg Neutrophils # Seg Neutrophils # Man Lymphocytes # (Manual) D-Dimer ABG pH POC ABG pCO2 POC ABG pO2 ABG pO2 ABG HCO3 ABG O2 Saturation ABG Base Excess ABG Oxyhemoglobin ABG Sodium ABG Chloride ABG Glucose Oxyhemoglobin Carboxyhemoglobin Sodium Potassium Chloride 94.6 L Carbon Dioxide 42 H* D BUN 5 L Creatinine < 0.2 L Glucose POC Glucose 152 H Hemoglobin A1c Magnesium Ferritin AST ALT Alkaline Phosphatase Lactate Dehydrogenase C-Reactive Protein Total Protein Albumin Arterial Blood Glucose Coronavirus (PCR) 07/22/21 07/22/21 07/22/21 11:25 12:05 15:40 WBC MCV MCH MCHC RDW Lymph % (Auto) [place] % (Auto) Eos % (Auto) Lymph # (Auto) [place] # (Auto) Eos # (Auto) Baso # (Auto) Seg Neutrophils % Seg Neuts % (Manual) Lymphocytes % (Manual) Seg Neutrophils # Seg Neutrophils # Man Lymphocytes # (Manual) D-Dimer ABG pH 7.338 L POC ABG pCO2 POC ABG pO2 ABG pO2 66.1 L ABG HCO3 45.0 H ABG O2 Saturation 94.2 L ABG Base Excess 15.2 H ABG Oxyhemoglobin ABG Sodium ABG Chloride ABG Glucose Oxyhemoglobin 91.9 L Carboxyhemoglobin Sodium Potassium Chloride Carbon Dioxide BUN Creatinine Glucose POC Glucose 146 H 219 H Hemoglobin A1c Magnesium Ferritin AST ALT Alkaline Phosphatase Lactate Dehydrogenase C-Reactive Protein Total Protein Albumin Arterial Blood Glucose Coronavirus (PCR) 07/22/21 07/23/21 07/23/21 21:26 04:35 04:35 WBC MCV 98 H MCH MCHC RDW 16.2 H Lymph % (Auto) 7.9 L [place] % (Auto) Eos % (Auto) Lymph # (Auto) 0.9 L [place] # (Auto) Eos # (Auto) Baso # (Auto) Seg Neutrophils % 85.3 H Seg Neuts % (Manual) Lymphocytes % (Manual) Seg Neutrophils # 9.2 H Seg Neutrophils # Man Lymphocytes # (Manual) D-Dimer ABG pH POC ABG pCO2 POC ABG pO2 ABG pO2 ABG HCO3 ABG O2 Saturation ABG Base Excess ABG Oxyhemoglobin ABG Sodium ABG Chloride ABG Glucose Oxyhemoglobin Carboxyhemoglobin Sodium Potassium Chloride 93.9 L Carbon Dioxide 44 H* BUN Creatinine < 0.2 L Glucose 149 H POC Glucose 131 H Hemoglobin A1c Magnesium Ferritin AST ALT Alkaline Phosphatase Lactate Dehydrogenase C-Reactive Protein Total Protein Albumin Arterial Blood Glucose Coronavirus (PCR) 07/23/21 07/23/21 07/23/21 07:20 11:34 16:11 WBC MCV MCH MCHC RDW Lymph % (Auto) [place] % (Auto) Eos % (Auto) Lymph # (Auto) [place] # (Auto) Eos # (Auto) Baso # (Auto) Seg Neutrophils % Seg Neuts % (Manual) Lymphocytes % (Manual) Seg Neutrophils # Seg Neutrophils # Man Lymphocytes # (Manual) D-Dimer ABG pH POC ABG pCO2 POC ABG pO2 ABG pO2 ABG HCO3 ABG O2 Saturation ABG Base Excess ABG Oxyhemoglobin ABG Sodium ABG Chloride ABG Glucose Oxyhemoglobin Carboxyhemoglobin Sodium Potassium Chloride Carbon Dioxide BUN Creatinine Glucose POC Glucose 116 H 172 H 110 H Hemoglobin A1c Magnesium Ferritin AST ALT Alkaline Phosphatase Lactate Dehydrogenase C-Reactive Protein Total Protein Albumin Arterial Blood Glucose Coronavirus (PCR) 07/23/21 07/23/21 07/24/21 18:11 21:33 04:10 WBC MCV MCH MCHC RDW Lymph % (Auto) [place] % (Auto) Eos % (Auto) Lymph # (Auto) [place] # (Auto) Eos # (Auto) Baso # (Auto) Seg Neutrophils % Seg Neuts % (Manual) Lymphocytes % (Manual) Seg Neutrophils # Seg Neutrophils # Man Lymphocytes # (Manual) D-Dimer ABG pH POC ABG pCO2 78.3 H POC ABG pO2 80.7 L ABG pO2 ABG HCO3 ABG O2 Saturation ABG Base Excess ABG Oxyhemoglobin ABG Sodium 134.9 L ABG Chloride 89.0 L ABG Glucose 200 H Oxyhemoglobin Carboxyhemoglobin Sodium Potassium 3.5 L D Chloride 92.4 L Carbon Dioxide 42 H* BUN Creatinine < 0.2 L Glucose 123 H POC Glucose 108 H Hemoglobin A1c Magnesium Ferritin AST ALT Alkaline Phosphatase Lactate Dehydrogenase C-Reactive Protein Total Protein Albumin Arterial Blood Glucose 200 H Coronavirus (PCR) 07/24/21 07/24/21 07/24/21 11:01 16:56 22:06 WBC MCV MCH MCHC RDW Lymph % (Auto) [place] % (Auto) Eos % (Auto) Lymph # (Auto) [place] # (Auto) Eos # (Auto) Baso # (Auto) Seg Neutrophils % Seg Neuts % (Manual) Lymphocytes % (Manual) Seg Neutrophils # Seg Neutrophils # Man Lymphocytes # (Manual) D-Dimer ABG pH POC ABG pCO2 POC ABG pO2 ABG pO2 ABG HCO3 ABG O2 Saturation ABG Base Excess ABG Oxyhemoglobin ABG Sodium ABG Chloride ABG Glucose Oxyhemoglobin Carboxyhemoglobin Sodium Potassium Chloride Carbon Dioxide BUN Creatinine Glucose POC Glucose 171 H 111 H 136 H Hemoglobin A1c Magnesium Ferritin AST ALT Alkaline Phosphatase Lactate Dehydrogenase C-Reactive Protein Total Protein Albumin Arterial Blood Glucose Coronavirus (PCR) 07/25/21 07/25/21 07/25/21 07:40 10:59 11:58 WBC MCV MCH MCHC RDW Lymph % (Auto) [place] % (Auto) Eos % (Auto) Lymph # (Auto) [place] # (Auto) Eos # (Auto) Baso # (Auto) Seg Neutrophils % Seg Neuts % (Manual) Lymphocytes % (Manual) Seg Neutrophils # Seg Neutrophils # Man Lymphocytes # (Manual) D-Dimer ABG pH POC ABG pCO2 POC ABG pO2 ABG pO2 ABG HCO3 ABG O2 Saturation ABG Base Excess ABG Oxyhemoglobin ABG Sodium ABG Chloride ABG Glucose Oxyhemoglobin Carboxyhemoglobin Sodium Potassium Chloride 88.6 L Carbon Dioxide 43 H* BUN Creatinine 0.2 L Glucose 180 H POC Glucose 120 H 153 H Hemoglobin A1c Magnesium Ferritin AST ALT Alkaline Phosphatase Lactate Dehydrogenase C-Reactive Protein Total Protein Albumin Arterial Blood Glucose Coronavirus (PCR) 07/25/21 07/25/21 07/26/21 16:03 20:18 09:56 WBC MCV MCH MCHC RDW Lymph % (Auto) [place] % (Auto) Eos % (Auto) Lymph # (Auto) [place] # (Auto) Eos # (Auto) Baso # (Auto) Seg Neutrophils % Seg Neuts % (Manual) Lymphocytes % (Manual) Seg Neutrophils # Seg Neutrophils # Man Lymphocytes # (Manual) D-Dimer ABG pH POC ABG pCO2 POC ABG pO2 ABG pO2 ABG HCO3 ABG O2 Saturation ABG Base Excess ABG Oxyhemoglobin ABG Sodium ABG Chloride ABG Glucose Oxyhemoglobin Carboxyhemoglobin Sodium Potassium Chloride 91.3 L Carbon Dioxide 45 H* BUN Creatinine < 0.2 L Glucose 128 H POC Glucose 143 H 133 H Hemoglobin A1c Magnesium Ferritin AST ALT Alkaline Phosphatase Lactate Dehydrogenase C-Reactive Protein Total Protein Albumin 3.2 L Arterial Blood Glucose Coronavirus (PCR) 07/26/21 07/26/21 07/27/21 17:56 21:24 07:10 WBC MCV MCH MCHC RDW Lymph % (Auto) [place] % (Auto) Eos % (Auto) Lymph # (Auto) [place] # (Auto) Eos # (Auto) Baso # (Auto) Seg Neutrophils % Seg Neuts % (Manual) Lymphocytes % (Manual) Seg Neutrophils # Seg Neutrophils # Man Lymphocytes # (Manual) D-Dimer ABG pH POC ABG pCO2 POC ABG pO2 ABG pO2 ABG HCO3 ABG O2 Saturation ABG Base Excess ABG Oxyhemoglobin ABG Sodium ABG Chloride ABG Glucose Oxyhemoglobin Carboxyhemoglobin Sodium Potassium Chloride Carbon Dioxide BUN Creatinine Glucose POC Glucose 170 H 122 H 119 H Hemoglobin A1c Magnesium Ferritin AST ALT Alkaline Phosphatase Lactate Dehydrogenase C-Reactive Protein Total Protein Albumin Arterial Blood Glucose Coronavirus (PCR) 07/27/21 07/27/21 07/28/21 11:44 21:31 07:30 WBC MCV MCH MCHC RDW Lymph % (Auto) [place] % (Auto) Eos % (Auto) Lymph # (Auto) [place] # (Auto) Eos # (Auto) Baso # (Auto) Seg Neutrophils % Seg Neuts % (Manual) Lymphocytes % (Manual) Seg Neutrophils # Seg Neutrophils # Man Lymphocytes # (Manual) D-Dimer ABG pH POC ABG pCO2 POC ABG pO2 ABG pO2 ABG HCO3 ABG O2 Saturation ABG Base Excess ABG Oxyhemoglobin ABG Sodium ABG Chloride ABG Glucose Oxyhemoglobin Carboxyhemoglobin Sodium Potassium 3.4 L D Chloride 91.4 L Carbon Dioxide 39 H BUN Creatinine < 0.2 L Glucose 140 H POC Glucose 176 H 162 H Hemoglobin A1c Magnesium Ferritin AST ALT Alkaline Phosphatase Lactate Dehydrogenase C-Reactive Protein Total Protein Albumin Arterial Blood Glucose Coronavirus (PCR) 07/28/21 07/28/21 07/28/21 08:43 12:25 16:40 WBC MCV MCH MCHC RDW Lymph % (Auto) [place] % (Auto) Eos % (Auto) Lymph # (Auto) [place] # (Auto) Eos # (Auto) Baso # (Auto) Seg Neutrophils % Seg Neuts % (Manual) Lymphocytes % (Manual) Seg Neutrophils # Seg Neutrophils # Man Lymphocytes # (Manual) D-Dimer ABG pH POC ABG pCO2 POC ABG pO2 ABG pO2 ABG HCO3 ABG O2 Saturation ABG Base Excess ABG Oxyhemoglobin ABG Sodium ABG Chloride ABG Glucose Oxyhemoglobin Carboxyhemoglobin Sodium Potassium Chloride Carbon Dioxide BUN Creatinine Glucose POC Glucose 122 H 162 H 234 H Hemoglobin A1c Magnesium Ferritin AST ALT Alkaline Phosphatase Lactate Dehydrogenase C-Reactive Protein Total Protein Albumin Arterial Blood Glucose Coronavirus (PCR) 07/28/21 07/29/21 07/29/21 21:27 04:40 09:51 WBC MCV MCH MCHC RDW Lymph % (Auto) [place] % (Auto) Eos % (Auto) Lymph # (Auto) [place] # (Auto) Eos # (Auto) Baso # (Auto) Seg Neutrophils % Seg Neuts % (Manual) Lymphocytes % (Manual) Seg Neutrophils # Seg Neutrophils # Man Lymphocytes # (Manual) D-Dimer ABG pH POC ABG pCO2 POC ABG pO2 ABG pO2 ABG HCO3 ABG O2 Saturation ABG Base Excess ABG Oxyhemoglobin ABG Sodium ABG Chloride ABG Glucose Oxyhemoglobin Carboxyhemoglobin Sodium Potassium 3.4 L Chloride 92.3 L Carbon Dioxide 40 H BUN Creatinine < 0.2 L Glucose 125 H POC Glucose 155 H 112 H Hemoglobin A1c Magnesium Ferritin AST ALT Alkaline Phosphatase Lactate Dehydrogenase C-Reactive Protein Total Protein Albumin Arterial Blood Glucose Coronavirus (PCR) 07/29/21 07/29/21 07/29/21 12:03 16:39 21:28 WBC MCV MCH MCHC RDW Lymph % (Auto) [place] % (Auto) Eos % (Auto) Lymph # (Auto) [place] # (Auto) Eos # (Auto) Baso # (Auto) Seg Neutrophils % Seg Neuts % (Manual) Lymphocytes % (Manual) Seg Neutrophils # Seg Neutrophils # Man Lymphocytes # (Manual) D-Dimer ABG pH POC ABG pCO2 POC ABG pO2 ABG pO2 ABG HCO3 ABG O2 Saturation ABG Base Excess ABG Oxyhemoglobin ABG Sodium ABG Chloride ABG Glucose Oxyhemoglobin Carboxyhemoglobin Sodium Potassium Chloride Carbon Dioxide BUN Creatinine Glucose POC Glucose 188 H 141 H 130 H Hemoglobin A1c Magnesium Ferritin AST ALT Alkaline Phosphatase Lactate Dehydrogenase C-Reactive Protein Total Protein Albumin Arterial Blood Glucose Coronavirus (PCR) 07/30/21 08:37 WBC MCV MCH MCHC RDW Lymph % (Auto) [place] % (Auto) Eos % (Auto) Lymph # (Auto) [place] # (Auto) Eos # (Auto) Baso # (Auto) Seg Neutrophils % Seg Neuts % (Manual) Lymphocytes % (Manual) Seg Neutrophils # Seg Neutrophils # Man Lymphocytes # (Manual) D-Dimer ABG pH POC ABG pCO2 POC ABG pO2 ABG pO2 ABG HCO3 ABG O2 Saturation ABG Base Excess ABG Oxyhemoglobin ABG Sodium ABG Chloride ABG Glucose Oxyhemoglobin Carboxyhemoglobin Sodium Potassium Chloride Carbon Dioxide BUN Creatinine Glucose POC Glucose 133 H Hemoglobin A1c Magnesium Ferritin AST ALT Alkaline Phosphatase Lactate Dehydrogenase C-Reactive Protein Total Protein Albumin Arterial Blood Glucose Coronavirus (PCR)
--- NOTE | 2021-07-30 18:24 | Progress Note ---
Assessment and Plan Assessment and plan: #Acute hypoxic/hypercapneic respiratory failure #Severe ARDS -Currently on high flow nasal cannula, currently on 75% FIO2 -trial BiPAP at night -maintain SpO2 >88% -Low threshold for intubation as patient is persistently tachypneic and tachycardic -s/p prednisone taper -Pulmonology following, assistance appreciated -encouraged prone positioning; patient has been poorly tolerating it overnight #Metabolic alkalosis -stable -Patient received multiple doses of Lasix over course of hospital stay but may be 2/2 to compensation for hypercapneia #Hypokalemia -will replete and monitor #Heart failure with preserved ejection fraction -TTE: LVEF 55-60% with diastolic dysfunction -will continue to monitor for signs of fluid overload #COVID-19 infection -Continue Covid vitamins #Type 2 diabetes -continue Lantus 5 units daily and sliding scale insulin #Anxiety -Stable -increased xanax dose at patients request #DVT prophylaxis -Lovenox 40 daily #Deconditioning -Will benefit from SNF after prolonged hospital stay #Advanced care planning -Disease education conducted, care plan discussed, diagnoses discussed, prognosis discussed, and patient acknowledges understanding with care plan -Time: +30 minutes Resolved issues #Sepsis secondary to COVID-19 #Iatrogenic diarrhea #Hypomagnesemia #Hyponatremia #Protein calorie malnutrition #Dysuria #Possible UTI Disposition Plan: Continue medical management Total Time Spent with Patient (Minutes): 30 minutes History Interval history: No acute events overnight. Hospitalist Physical - Constitutional Vitals: Temp Pulse Resp BP Pulse Ox 98.4 F 102 H 31 H 123/70 100 07/30/21 16:00 07/30/21 18:00 07/30/21 18:00 07/30/21 18:00 07/30/21 18:00 General appearance: Present: no acute distress, well-nourished, obese, other (Looks tired) - EENT Eyes: Present: PERRL, EOM intact ENT: hearing intact, clear oral mucosa, dentition normal - Neck Neck: Present: supple, normal ROM - Respiratory Respiratory effort: normal (Currently on BiPAP) Respiratory: bilateral: diminished - Cardiovascular Rhythm: regular Heart Sounds: Present: S1 & S2 - Extremities Extremities: no ischemia, pulses intact, pulses symmetrical, No edema, normal temperature, normal color Peripheral Pulses: within normal limits - Abdominal General gastrointestinal: soft, non-tender, non-distended, normal bowel sounds - Integumentary Integumentary: Present: clear, warm, dry - Psychiatric Psychiatric: appropriate mood/affect, intact judgment & insight, memory intact, cooperative - Neurologic Neurologic: CNII-XII intact - Allied Health Allied health notes reviewed: nursing Results - Labs CBC & Chem 7: 07/23/21 04:35 07/29/21 04:40 Labs: Laboratory Last Values WBC 10.8 K/mm3 (4.5-11.0) 07/23/21 04:35 RBC 3.84 M/mm3 (3.65-5.03) 07/23/21 04:35 Hgb 12.1 gm/dl (10.1-14.3) 07/23/21 04:35 Hct 37.6 % (30.3-42.9) 07/23/21 04:35 MCV 98 fl (79-97) H 07/23/21 04:35 MCH 32 pg (28-32) 07/23/21 04:35 MCHC 32 % (30-34) 07/23/21 04:35 RDW 16.2 % (13.2-15.2) H 07/23/21 04:35 Plt Count 367 K/mm3 (140-440) 07/23/21 04:35 Lymph % (Auto) 7.9 % (13.4-35.0) L 07/23/21 04:35 Dunn % (Auto) 5.6 % (0.0-7.3) 07/23/21 04:35 Eos % (Auto) 0.8 % (0.0-4.3) 07/23/21 04:35 Baso % (Auto) 0.4 % (0.0-1.8) 07/23/21 04:35 Lymph # (Auto) 0.9 K/mm3 (1.2-5.4) L 07/23/21 04:35 Dunn # (Auto) 0.6 K/mm3 (0.0-0.8) 07/23/21 04:35 Eos # (Auto) 0.1 K/mm3 (0.0-0.4) 07/23/21 04:35 Baso # (Auto) 0.0 K/mm3 (0.0-0.1) 07/23/21 04:35 Add Manual Diff Complete 07/09/21 04:45 Total Counted 100 07/09/21 04:45 Seg Neutrophils % 85.3 % (40.0-70.0) H 07/23/21 04:35 Seg Neuts % (Manual) 82.0 % (40.0-70.0) H 07/09/21 04:45 Band Neutrophils % 1.0 % 05/12/21 04:05 Lymphocytes % (Manual) 13.0 % (13.4-35.0) L 07/09/21 04:45 Monocytes % (Manual) 3.0 % (0.0-7.3) 07/09/21 04:45 Eosinophils % (Manual) 2.0 % (0.0-4.3) 07/09/21 04:45 Nucleated RBC % Not Reportable 07/09/21 04:45 Seg Neutrophils # 9.2 K/mm3 (1.8-7.7) H 07/23/21 04:35 Seg Neutrophils # Man 7.8 K/mm3 (1.8-7.7) H 07/09/21 04:45 Band Neutrophils # 0.0 K/mm3 07/09/21 04:45 Lymphocytes # (Manual) 1.2 K/mm3 (1.2-5.4) 07/09/21 04:45 Abs React Lymphs (Man) 0.0 K/mm3 07/09/21 04:45 Monocytes # (Manual) 0.3 K/mm3 (0.0-0.8) 07/09/21 04:45 Eosinophils # (Manual) 0.2 K/mm3 (0.0-0.4) 07/09/21 04:45 Basophils # (Manual) 0.0 K/mm3 (0.0-0.1) 07/09/21 04:45 Metamyelocytes # 0.0 K/mm3 07/09/21 04:45 Myelocytes # 0.0 K/mm3 07/09/21 04:45 Promyelocytes # 0.0 K/mm3 07/09/21 04:45 Blast Cells # 0.0 K/mm3 07/09/21 04:45 WBC Morphology Not Reportable 07/09/21 04:45 Hypersegmented Neuts Not Reportable 07/09/21 04:45 Hyposegmented Neuts Not Reportable 07/09/21 04:45 Hypogranular Neuts Not Reportable 07/09/21 04:45 Smudge Cells Not Reportable 07/09/21 04:45 Toxic Granulation Not Reportable 07/09/21 04:45 Toxic Vacuolation Not Reportable 07/09/21 04:45 Dohle Bodies Not Reportable 07/09/21 04:45 Pelger-Huet Anomaly Not Reportable 07/09/21 04:45 Janelle Rods Not Reportable 07/09/21 04:45 Platelet Estimate Consistent w auto 07/09/21 04:45 Clumped Platelets Not Reportable 07/09/21 04:45 Plt Clumps, EDTA Not Reportable 07/09/21 04:45 Large Platelets Not Reportable 07/09/21 04:45 Giant Platelets Rare 07/09/21 04:45 Platelet Satelliting Not Reportable 07/09/21 04:45 Plt Morphology Comment Not Reportable 07/09/21 04:45 RBC Morphology Not Reportable 07/09/21 04:45 Dimorphic RBCs Not Reportable 07/09/21 04:45 Polychromasia Not Reportable 07/09/21 04:45 Hypochromasia Few 07/09/21 04:45 Poikilocytosis Not Reportable 07/09/21 04:45 Anisocytosis Not Reportable 07/09/21 04:45 Microcytosis Not Reportable 07/09/21 04:45 Macrocytosis Not Reportable 07/09/21 04:45 Spherocytes Not Reportable 07/09/21 04:45 Pappenheimer Bodies Not Reportable 07/09/21 04:45 Sickle Cells Not Reportable 07/09/21 04:45 Target Cells Not Reportable 07/09/21 04:45 Tear Drop Cells Not Reportable 07/09/21 04:45 Ovalocytes Not Reportable 07/09/21 04:45 Stomatocytes 1+ 07/09/21 04:45 Helmet Cells Not Reportable 07/09/21 04:45 Ahuja-Ronco Bodies Not Reportable 07/09/21 04:45 Salkum Rings Not Reportable 07/09/21 04:45 Crow Cells Not Reportable 07/09/21 04:45 Bite Cells Not Reportable 07/09/21 04:45 Crenated Cell Not Reportable 07/09/21 04:45 Elliptocytes Not Reportable 07/09/21 04:45 Acanthocytes (Spur) Not Reportable 07/09/21 04:45 Rouleaux Not Reportable 07/09/21 04:45 Hemoglobin C Crystals Not Reportable 07/09/21 04:45 Schistocytes Not Reportable 07/09/21 04:45 Malaria parasites Not Reportable 07/09/21 04:45 Justin Bodies Not Reportable 07/09/21 04:45 Hem Pathologist Commnt No 07/09/21 04:45 D-Dimer 638.35 ng/mlDDU (0-234) H 07/09/21 04:45 ABG pH 7.417 (7.320-7.450) 07/23/21 18:11 POC ABG pCO2 78.3 mmHg (32.0-48.0) H 07/23/21 18:11 ABG pCO2 85.7 mm Hg 07/22/21 12:05 POC ABG pO2 80.7 mmHg (83-108) L 07/23/21 18:11 ABG pO2 66.1 mm Hg (80.0-90.0) L 07/22/21 12:05 POC ABG HCO3 49.3 07/23/21 18:11 ABG HCO3 45.0 mmol/L (20.0-26.0) H 07/22/21 12:05 ABG O2 Saturation 96.7 (0-100) 07/23/21 18:11 ABG O2 Content 16.8 (0.0-44) 07/22/21 12:05 POC ABG Base Excess 20.5 07/23/21 18:11 ABG Base Excess 15.2 mmol/L (-2.0-3.0) H 07/22/21 12:05 ABG Hemoglobin 12.6 (12.0-17.5) 07/23/21 18:11 ABG Oxyhemoglobin 95.7 (94-98) 07/23/21 18:11 ABG Carboxyhemoglobin 1.9 % (0.0-5.0) 07/22/21 12:05 ABG Methemoglobin 0.3 (0.0-1.5) 07/23/21 18:11 ABG Sodium 134.9 mmol/L (136.0-145.0) L 07/23/21 18:11 ABG Potassium 3.9 mmol/L (3.40-4.50) 07/23/21 18:11 ABG Chloride 89.0 mmol/L (98-107) L 07/23/21 18:11 ABG Glucose 200 mg/dL (65-95) H 07/23/21 18:11 Oxyhemoglobin 91.9 % (95.0-99.0) L 07/22/21 12:05 Carboxyhemoglobin 0.7 (0.5-1.5) 07/23/21 18:11 FiO2 100 % 07/22/21 12:05 FiO2 % 100.0 07/23/21 18:11 Sodium 141 mmol/L (137-145) 07/29/21 04:40 Potassium 3.4 mmol/L (3.6-5.0) L 07/29/21 04:40 Chloride 92.3 mmol/L (98-107) L 07/29/21 04:40 Carbon Dioxide 40 mmol/L (22-30) H 07/29/21 04:40 Anion Gap 12 mmol/L 07/29/21 04:40 BUN 8 mg/dL (7-17) 07/29/21 04:40 Creatinine < 0.2 mg/dL (0.6-1.2) L 07/29/21 04:40 Estimated GFR > 60 ml/min 07/29/21 04:40 BUN/Creatinine Ratio 40 % 07/29/21 04:40 Glucose 125 mg/dL (65-100) H 07/29/21 04:40 POC Glucose 156 mg/dL (70-105) H 07/30/21 11:56 Hemoglobin A1c 8.5 % (4-6) H 04/18/21 07:36 Calcium 9.2 mg/dL (8.4-10.2) 07/29/21 04:40 Phosphorus 3.70 mg/dL (2.5-4.5) 07/23/21 04:35 Magnesium 2.10 mg/dL (1.7-2.3) 07/23/21 04:35 Ferritin 155.9 ng/mL (10.0-200.0) 07/09/21 04:45 Total Bilirubin < 0.20 mg/dL (0.1-1.2) 07/26/21 09:56 AST 23 units/L (5-40) 07/26/21 09:56 ALT 25 units/L (7-56) 07/26/21 09:56 Alkaline Phosphatase 69 units/L (35-129) 07/26/21 09:56 Lactate Dehydrogenase 475 units/L (91-180) H 06/05/21 05:26 C-Reactive Protein 4.30 mg/dL (0.00-1.30) H 07/09/21 04:45 NT-Pro-B Natriuret Pep 59.45 pg/mL (0-450) 07/07/21 13:40 Total Protein 8.1 g/dL (6.3-8.2) 07/26/21 09:56 Albumin 3.2 g/dL (3.9-5) L 07/26/21 09:56 Albumin/Globulin Ratio 0.7 % 07/26/21 09:56 Triglycerides < 9 mg/dL (2-149) 05/03/21 04:30 Procalcitonin < 0.05 ng/mL (<0.15) 05/23/21 09:50 Arterial Blood Glucose 200 mg/dL (65-95) H 07/23/21 18:11 Arterial Blood Ionized Calcium 4.6 mg/dL (4.6-5.3) 07/23/21 18:11 Coronavirus (PCR) Negative (Negative) 07/25/21 Unknown Amos/IV: Voiding Method External Female Catheter Active Medications - Current Medications Current Medications: Generic Name Dose Route Start Last Admin Trade Name Freq PRN Reason Stop Dose Admin Acetaminophen 650 mg 07/02/21 17:48 07/30/21 09:30 Acetaminophen 325 Mg Tab PO 650 mg Q4H PRN Administration Pain, Mild (1-3) Albuterol 2.5 mg 04/16/21 13:39 04/21/21 20:39 Albuterol 2.5 Mg/3 Ml Nebu IH 2.5 mg Q4HRT PRN Administration Shortness Of Breath Alprazolam 2 mg 07/29/21 22:00 07/30/21 09:19 Alprazolam 1 Mg Tab PO 2 mg BID TUTU Administration Calcium Carbonate/Glycine 500 mg 07/24/21 10:43 Calcium Carbonate 500 Mg Tab Chew PO BID PRN reflux Cholecalciferol 1,000 unit 04/17/21 10:00 07/30/21 09:19 Cholecalciferol (Vit D3) 1000 Unit (25 Mcg) Tab PO 1,000 unit QDAY TUTU Administration Enoxaparin Sodium 40 mg 05/19/21 22:00 07/29/21 21:39 Enoxaparin 40 Mg/0.4 Ml Inj SUB-Q 40 mg QDAY@2200 TUTU Administration Protocol Ibuprofen 600 mg 07/11/21 11:00 07/26/21 11:10 Ibuprofen 600 Mg Tab PO 600 mg Q6H PRN Administration Ear Pain Insulin Glargine 5 units 07/25/21 10:00 07/30/21 09:19 Insulin Glargine 100 Units/Ml SUB-Q 5 units DAILY TUTU Administration Insulin Human Lispro 0 unit 05/18/21 12:00 07/30/21 17:58 Insulin Lispro 100 Unit/Ml SUB-Q Not Given ACHS [facility] Protocol Ondansetron HCl 4 mg 04/16/21 14:00 05/30/21 10:07 Ondansetron 4 Mg/2 Ml Inj IV 4 mg Q8H PRN Administration Nausea And Vomiting Polyethylene Glycol 17 gm 07/16/21 20:00 Polyethylene Glycol 3350 17 Gm Powder PO QDAY PRN Constipation Sodium Chloride 10 ml 04/16/21 13:39 07/27/21 10:47 Sodium Chloride 0.9% 10 Ml Flush Syringe IV 10 ml PRN PRN Administration LINE FLUSH Zinc Sulfate 220 mg 04/16/21 22:00 07/30/21 09:19 Zinc Sulfate 220 Mg Cap PO 220 mg BID TUTU Administration Nutrition/Malnutrition Assess - Dietary Evaluation Nutrition/Malnutrition Findings: Nutrition Notes Start: 04/23/21 07:41 Freq: Status: Active Protocol: Document 07/03/21 16:54 GB (Rec: 07/03/21 17:11 GB [id number]) Nutrition Notes Initial or Follow up Reassessment Current Diagnosis Respiratory Failure Other Pertinent Diagnosis oral thrush, COVID-19 pneu Current Diet consistent carbohydrate Labs/Tests 07/03: creatinine 0.3, K 3.2 Pertinent Medications Vit C, Vit D3, D5 (PRN), Prednisone, NaCl, Zn Sulfate Height 4 ft 11.84 in Weight 60.3 kg [place] Body Weight (kg) 45.09 BMI 26.1 Weight change and time frame 04/16/21: 74.843kg 05/17/21: 68.1kg 06/16/21: 60.3kg change of -14.54kg for -19.43% in 60 days. Per MD note: pt has been diuresed thorughout stay. Weight Status Overweight Subjective/Other Information MD notes 07/03: pt showing improvement, prednisone weaning down, possible weaning of O2. Last BM: 07/02 PO intake recorded at 50-100% Percent of energy/protein needs met: PO intake of meals meet 75% or greater of EEN Burn Absent Trauma Absent GI Symptoms None Food Allergy No Skin Integrity/Comment skin tear rt/lt buttocks Current % PO Good (75-100%) Minimum of two criteria No #3 Nutrition Diagnosis No nutrition diagnosis at this time Etiology respiratory failure As Evidenced by Signs and Symptoms recovering, good po, weight loss r/t diurese therapy #2 Nutrition Diagnosis Malnutrition Comments: Wt loss due to diurese for most of stay. PO intake is recorded at 75- 100% Etiology acute illness As Evidenced by Signs and Symptoms <50% EER in >5 days, >5% wt loss in 1 month Diagnosis Progress(for reassessment Resolved documentation) #1 Nutrition Diagnosis Inadequate oral intake Etiology ARF As Evidenced by Signs and Symptoms pt continues to meet 100%/93% of kcal/protein needs Diagnosis Progress(for reassessment Resolved documentation) Is patient on ventilator? No Is Patient Ambulatory and/or Out of Bed Yes REE-([facility]-ambulatory/OOB) [ 1491.022 [id number]] Kcal/Kg value to use for calculation 25 Approximate Energy Requirements Using 1508 kcal/Kg Calculation Used for Recommendations Kcal/kg Additional Notes Pro needs 1-1.2g/kg @ 60k -72g/day Fluid needs 1ml/kcal or per MD Nutrition Intervention Change Diet Order: continue Nutrition Support: n/a Add Supplement/Snack (indicate name/kcal n/a /protein ) Goal #1 PO intake of meals to be 75% or greater daily for LOS Goal #2 Weight to stabilize +/-3% current weight for LOS Follow-Up By: 08/07/21 Additional Comments f/u: po intake, weight
[2021-07-30] MEDS: ENOXAPARIN 40 MG/0.4 ML INJ SUB-Q SCH (22:28)
[2021-07-31] MEDS: ZINC SULFATE 220 MG CAP PO SCH ×2 (10:49→22:00)
[2021-07-31] MEDS: INSULIN GLARGINE 100 UNITS/ML SUB-Q SCH (10:49)
[2021-07-31] MEDS: CHOLECALCIFEROL (VIT D3) 1000 UNIT (25 mcg) TAB PO SCH (10:49)
[2021-07-31] MEDS: ALPRAZolam 1 MG TAB PO SCH ×2 (10:49→22:00)
[2021-07-31] MEDS: INSULIN LISPRO 100 UNIT/ML SUB-Q SCH ×4 (10:50→22:00)
--- NOTE | 2021-07-31 15:16 | Progress Note ---
Assessment and Plan Assessment and plan: #Acute hypoxic/hypercapneic respiratory failure #Severe ARDS -Currently on high flow nasal cannula, currently on 80% FIO2 -trial BiPAP at night -maintain SpO2 >88% -Low threshold for intubation as patient is persistently tachypneic and tachycardic -s/p prednisone taper -Pulmonology following, assistance appreciated -encouraged prone positioning; patient has been poorly tolerating it overnight #Metabolic alkalosis -stable -Patient received multiple doses of Lasix over course of hospital stay but may be 2/2 to compensation for hypercapneia #Hypokalemia -will replete and monitor #Heart failure with preserved ejection fraction -TTE: LVEF 55-60% with diastolic dysfunction -will continue to monitor for signs of fluid overload #COVID-19 infection -Continue Covid vitamins #Type 2 diabetes -continue Lantus 5 units daily and sliding scale insulin #Anxiety -Stable -increased xanax dose at patients request #DVT prophylaxis -Lovenox 40 daily #Deconditioning -Will benefit from SNF after prolonged hospital stay #Advanced care planning -Disease education conducted, care plan discussed, diagnoses discussed, prognosis discussed, and patient acknowledges understanding with care plan -Time: +30 minutes Resolved issues #Sepsis secondary to COVID-19 #Iatrogenic diarrhea #Hypomagnesemia #Hyponatremia #Protein calorie malnutrition #Dysuria #Possible UTI Disposition Plan: Continue medical management Total Time Spent with Patient (Minutes): 40-minute History Interval history: No acute events overnight. Hospitalist Physical - Constitutional Vitals: Temp Pulse Resp BP Pulse Ox 97.6 F 103 H 41 H 110/69 99 07/31/21 07:00 07/31/21 13:00 07/31/21 13:00 07/31/21 13:00 07/31/21 13:00 General appearance: Present: no acute distress, well-nourished, obese, other (Looks tired) - EENT Eyes: Present: PERRL, EOM intact ENT: hearing intact, clear oral mucosa, dentition normal - Neck Neck: Present: supple, normal ROM - Respiratory Respiratory effort: labored (On high flow nasal cannula 30 L 80% FiO2) Respiratory: bilateral: diminished - Cardiovascular Rhythm: regular Heart Sounds: Present: S1 & S2 - Extremities Extremities: no ischemia, pulses intact, pulses symmetrical, No edema, normal temperature, normal color Peripheral Pulses: within normal limits - Abdominal General gastrointestinal: soft, non-tender, non-distended, normal bowel sounds - Integumentary Integumentary: Present: clear, warm, dry - Psychiatric Psychiatric: appropriate mood/affect, intact judgment & insight, memory intact, cooperative - Neurologic Neurologic: CNII-XII intact, moves all extremities - Allied Health Allied health notes reviewed: nursing Results - Labs CBC & Chem 7: 07/23/21 04:35 07/29/21 04:40 Labs: Laboratory Last Values WBC 10.8 K/mm3 (4.5-11.0) 07/23/21 04:35 RBC 3.84 M/mm3 (3.65-5.03) 07/23/21 04:35 Hgb 12.1 gm/dl (10.1-14.3) 07/23/21 04:35 Hct 37.6 % (30.3-42.9) 07/23/21 04:35 MCV 98 fl (79-97) H 07/23/21 04:35 MCH 32 pg (28-32) 07/23/21 04:35 MCHC 32 % (30-34) 07/23/21 04:35 RDW 16.2 % (13.2-15.2) H 07/23/21 04:35 Plt Count 367 K/mm3 (140-440) 07/23/21 04:35 Lymph % (Auto) 7.9 % (13.4-35.0) L 07/23/21 04:35 [place] % (Auto) 5.6 % (0.0-7.3) 07/23/21 04:35 Eos % (Auto) 0.8 % (0.0-4.3) 07/23/21 04:35 Baso % (Auto) 0.4 % (0.0-1.8) 07/23/21 04:35 Lymph # (Auto) 0.9 K/mm3 (1.2-5.4) L 07/23/21 04:35 [place] # (Auto) 0.6 K/mm3 (0.0-0.8) 07/23/21 04:35 Eos # (Auto) 0.1 K/mm3 (0.0-0.4) 07/23/21 04:35 Baso # (Auto) 0.0 K/mm3 (0.0-0.1) 07/23/21 04:35 Add Manual Diff Complete 07/09/21 04:45 Total Counted 100 07/09/21 04:45 Seg Neutrophils % 85.3 % (40.0-70.0) H 07/23/21 04:35 Seg Neuts % (Manual) 82.0 % (40.0-70.0) H 07/09/21 04:45 Band Neutrophils % 1.0 % 05/12/21 04:05 Lymphocytes % (Manual) 13.0 % (13.4-35.0) L 07/09/21 04:45 Monocytes % (Manual) 3.0 % (0.0-7.3) 07/09/21 04:45 Eosinophils % (Manual) 2.0 % (0.0-4.3) 07/09/21 04:45 Nucleated RBC % Not Reportable 07/09/21 04:45 Seg Neutrophils # 9.2 K/mm3 (1.8-7.7) H 07/23/21 04:35 Seg Neutrophils # Man 7.8 K/mm3 (1.8-7.7) H 07/09/21 04:45 Band Neutrophils # 0.0 K/mm3 07/09/21 04:45 Lymphocytes # (Manual) 1.2 K/mm3 (1.2-5.4) 07/09/21 04:45 Abs React Lymphs (Man) 0.0 K/mm3 07/09/21 04:45 Monocytes # (Manual) 0.3 K/mm3 (0.0-0.8) 07/09/21 04:45 Eosinophils # (Manual) 0.2 K/mm3 (0.0-0.4) 07/09/21 04:45 Basophils # (Manual) 0.0 K/mm3 (0.0-0.1) 07/09/21 04:45 Metamyelocytes # 0.0 K/mm3 07/09/21 04:45 Myelocytes # 0.0 K/mm3 07/09/21 04:45 Promyelocytes # 0.0 K/mm3 07/09/21 04:45 Blast Cells # 0.0 K/mm3 07/09/21 04:45 WBC Morphology Not Reportable 07/09/21 04:45 Hypersegmented Neuts Not Reportable 07/09/21 04:45 Hyposegmented Neuts Not Reportable 07/09/21 04:45 Hypogranular Neuts Not Reportable 07/09/21 04:45 Smudge Cells Not Reportable 07/09/21 04:45 Toxic Granulation Not Reportable 07/09/21 04:45 Toxic Vacuolation Not Reportable 07/09/21 04:45 Dohle Bodies Not Reportable 07/09/21 04:45 Pel[place]-Huet Anomaly Not Reportable 07/09/21 04:45 Janelle Rods Not Reportable 07/09/21 04:45 Platelet Estimate Consistent w auto 07/09/21 04:45 Clumped Platelets Not Reportable 07/09/21 04:45 Plt Clumps, EDTA Not Reportable 07/09/21 04:45 Large Platelets Not Reportable 07/09/21 04:45 Giant Platelets Rare 07/09/21 04:45 Platelet Satelliting Not Reportable 07/09/21 04:45 Plt Morphology Comment Not Reportable 07/09/21 04:45 RBC Morphology Not Reportable 07/09/21 04:45 Dimorphic RBCs Not Reportable 07/09/21 04:45 Polychromasia Not Reportable 07/09/21 04:45 Hypochromasia Few 07/09/21 04:45 Poikilocytosis Not Reportable 07/09/21 04:45 Anisocytosis Not Reportable 07/09/21 04:45 Microcytosis Not Reportable 07/09/21 04:45 Macrocytosis Not Reportable 07/09/21 04:45 Spherocytes Not Reportable 07/09/21 04:45 Pappenheimer Bodies Not Reportable 07/09/21 04:45 Sickle Cells Not Reportable 07/09/21 04:45 Target Cells Not Reportable 07/09/21 04:45 Tear Drop Cells Not Reportable 07/09/21 04:45 Ovalocytes Not Reportable 07/09/21 04:45 Stomatocytes 1+ 07/09/21 04:45 Helmet Cells Not Reportable 07/09/21 04:[address] [place] Bodies Not Reportable 07/09/21 04:45 [place] Rings Not Reportable 07/09/21 04:45 [place] Cells Not Reportable 07/09/21 04:45 Bite Cells Not Reportable 07/09/21 04:45 Crenated Cell Not Reportable 07/09/21 04:45 Elliptocytes Not Reportable 07/09/21 04:45 Acanthocytes (Spur) Not Reportable 07/09/21 04:45 [place]leaux Not Reportable 07/09/21 04:45 Hemoglobin C Crystals Not Reportable 07/09/21 04:45 Schistocytes Not Reportable 07/09/21 04:45 Malaria parasites Not Reportable 07/09/21 04:45 [place] Bodies Not Reportable 07/09/21 04:45 Hem Pathologist Commnt No 07/09/21 04:45 D-Dimer 638.35 ng/mlDDU (0-234) H 07/09/21 04:45 ABG pH 7.417 (7.320-7.450) 07/23/21 18:11 POC ABG pCO2 78.3 mmHg (32.0-48.0) H 07/23/21 18:11 ABG pCO2 85.7 mm Hg 07/22/21 12:05 POC ABG pO2 80.7 mmHg (83-108) L 07/23/21 18:11 ABG pO2 66.1 mm Hg (80.0-90.0) L 07/22/21 12:05 POC ABG HCO3 49.3 07/23/21 18:11 ABG HCO3 45.0 mmol/L (20.0-26.0) H 07/22/21 12:05 ABG O2 Saturation 96.7 (0-100) 07/23/21 18:11 ABG O2 Content 16.8 (0.0-44) 07/22/21 12:05 POC ABG Base Excess 20.5 07/23/21 18:11 ABG Base Excess 15.2 mmol/L (-2.0-3.0) H 07/22/21 12:05 ABG Hemoglobin 12.6 (12.0-17.5) 07/23/21 18:11 ABG Oxyhemoglobin 95.7 (94-98) 07/23/21 18:11 ABG Carboxyhemoglobin 1.9 % (0.0-5.0) 07/22/21 12:05 ABG Methemoglobin 0.3 (0.0-1.5) 07/23/21 18:11 ABG Sodium 134.9 mmol/L (136.0-145.0) L 07/23/21 18:11 ABG Potassium 3.9 mmol/L (3.40-4.50) 07/23/21 18:11 ABG Chloride 89.0 mmol/L (98-107) L 07/23/21 18:11 ABG Glucose 200 mg/dL (65-95) H 07/23/21 18:11 Oxyhemoglobin 91.9 % (95.0-99.0) L 07/22/21 12:05 Carboxyhemoglobin 0.7 (0.5-1.5) 07/23/21 18:11 FiO2 100 % 07/22/21 12:05 FiO2 % 100.0 07/23/21 18:11 Sodium 141 mmol/L (137-145) 07/29/21 04:40 Potassium 3.4 mmol/L (3.6-5.0) L 07/29/21 04:40 Chloride 92.3 mmol/L (98-107) L 07/29/21 04:40 Carbon Dioxide 40 mmol/L (22-30) H 07/29/21 04:40 Anion Gap 12 mmol/L 07/29/21 04:40 BUN 8 mg/dL (7-17) 07/29/21 04:40 Creatinine < 0.2 mg/dL (0.6-1.2) L 07/29/21 04:40 Estimated GFR > 60 ml/min 07/29/21 04:40 BUN/Creatinine Ratio 40 % 07/29/21 04:40 Glucose 125 mg/dL (65-100) H 07/29/21 04:40 POC Glucose 114 mg/dL (70-105) H 07/31/21 11:55 Hemoglobin A1c 8.5 % (4-6) H 04/18/21 07:36 Calcium 9.2 mg/dL (8.4-10.2) 07/29/21 04:40 Phosphorus 3.70 mg/dL (2.5-4.5) 07/23/21 04:35 Magnesium 2.10 mg/dL (1.7-2.3) 07/23/21 04:35 Ferritin 155.9 ng/mL (10.0-200.0) 07/09/21 04:45 Total Bilirubin < 0.20 mg/dL (0.1-1.2) 07/26/21 09:56 AST 23 units/L (5-40) 07/26/21 09:56 ALT 25 units/L (7-56) 07/26/21 09:56 Alkaline Phosphatase 69 units/L (35-129) 07/26/21 09:56 Lactate Dehydrogenase 475 units/L (91-180) H 06/05/21 05:26 C-Reactive Protein 4.30 mg/dL (0.00-1.30) H 07/09/21 04:45 NT-Pro-B Natriuret Pep 59.45 pg/mL (0-450) 07/07/21 13:40 Total Protein 8.1 g/dL (6.3-8.2) 07/26/21 09:56 Albumin 3.2 g/dL (3.9-5) L 07/26/21 09:56 Albumin/Globulin Ratio 0.7 % 07/26/21 09:56 Triglycerides < 9 mg/dL (2-149) 05/03/21 04:30 Procalcitonin < 0.05 ng/mL (<0.15) 05/23/21 09:50 Arterial Blood Glucose 200 mg/dL (65-95) H 07/23/21 18:11 Arterial Blood Ionized Calcium 4.6 mg/dL (4.6-5.3) 07/23/21 18:11 Coronavirus (PCR) Negative (Negative) 07/25/21 Unknown Amos/IV: Voiding Method External Female Catheter Active Medications - Current Medications Current Medications: Generic Name Dose Route Start Last Admin Trade Name Freq PRN Reason Stop Dose Admin Acetaminophen 650 mg 07/02/21 17:48 07/30/21 09:30 Acetaminophen 325 Mg Tab PO 650 mg Q4H PRN Administration Pain, Mild (1-3) Albuterol 2.5 mg 04/16/21 13:39 04/21/21 20:39 Albuterol 2.5 Mg/3 Ml Nebu IH 2.5 mg Q4HRT PRN Administration Shortness Of Breath Alprazolam 2 mg 07/29/21 22:00 07/31/21 10:49 Alprazolam 1 Mg Tab PO 2 mg BID TUTU Administration Calcium Carbonate/Glycine 500 mg 07/24/21 10:43 Calcium Carbonate 500 Mg Tab Chew PO BID PRN reflux Cholecalciferol 1,000 unit 04/17/21 10:00 07/31/21 10:49 Cholecalciferol (Vit D3) 1000 Unit (25 Mcg) Tab PO 1,000 unit QDAY TUTU Administration Enoxaparin Sodium 40 mg 05/19/21 22:00 07/30/21 22:28 Enoxaparin 40 Mg/0.4 Ml Inj SUB-Q 40 mg QDAY@2200 TUTU Administration Protocol Ibuprofen 600 mg 07/11/21 11:00 07/26/21 11:10 Ibuprofen 600 Mg Tab PO 600 mg Q6H PRN Administration Ear Pain Insulin Glargine 5 units 07/25/21 10:00 07/31/21 10:49 Insulin Glargine 100 Units/Ml SUB-Q Not Given DAILY TUTU Insulin Human Lispro 0 unit 05/18/21 12:00 07/31/21 10:50 Insulin Lispro 100 Unit/Ml SUB-Q Not Given ACHS [facility] Protocol Ondansetron HCl 4 mg 04/16/21 14:00 05/30/21 10:07 Ondansetron 4 Mg/2 Ml Inj IV 4 mg Q8H PRN Administration Nausea And Vomiting Polyethylene Glycol 17 gm 07/16/21 20:00 Polyethylene Glycol 3350 17 Gm Powder PO QDAY PRN Constipation Sodium Chloride 10 ml 04/16/21 13:39 07/27/21 10:47 Sodium Chloride 0.9% 10 Ml Flush Syringe IV 10 ml PRN PRN Administration LINE FLUSH Zinc Sulfate 220 mg 04/16/21 22:00 07/31/21 10:49 Zinc Sulfate 220 Mg Cap PO 220 mg BID TUTU Administration Nutrition/Malnutrition Assess - Dietary Evaluation Nutrition/Malnutrition Findings: Nutrition Notes Start: 04/23/21 07:41 Freq: Status: Active Protocol: Document 07/03/21 16:54 GB (Rec: 07/03/21 17:11 GB [id number]) Nutrition Notes Initial or Follow up Reassessment Current Diagnosis Respiratory Failure Other Pertinent Diagnosis oral thrush, COVID-19 pneu Current Diet consistent carbohydrate Labs/Tests 07/03: creatinine 0.3, K 3.2 Pertinent Medications Vit C, Vit D3, D5 (PRN), Prednisone, NaCl, Zn Sulfate Height 4 ft 11.84 in Weight 60.3 kg [place] Body Weight (kg) 45.09 BMI 26.1 Weight change and time frame 04/16/21: 74.843kg 05/17/21: 68.1kg 06/16/21: 60.3kg change of -14.54kg for -19.43% in 60 days. Per MD note: pt has been diuresed thorughout stay. Weight Status Overweight Subjective/Other Information MD notes 07/03: pt showing improvement, prednisone weaning down, possible weaning of O2. Last BM: 07/02 PO intake recorded at 50-100% Percent of energy/protein needs met: PO intake of meals meet 75% or greater of EEN Burn Absent Trauma Absent GI Symptoms None Food Allergy No Skin Integrity/Comment skin tear rt/lt buttocks Current % PO Good (75-100%) Minimum of two criteria No #3 Nutrition Diagnosis No nutrition diagnosis at this time Etiology respiratory failure As Evidenced by Signs and Symptoms recovering, good po, weight loss r/t diurese therapy #2 Nutrition Diagnosis Malnutrition Comments: Wt loss due to diurese for most of stay. PO intake is recorded at 75- 100% Etiology acute illness As Evidenced by Signs and Symptoms <50% EER in >5 days, >5% wt loss in 1 month Diagnosis Progress(for reassessment Resolved documentation) #1 Nutrition Diagnosis Inadequate oral intake Etiology ARF As Evidenced by Signs and Symptoms pt continues to meet 100%/93% of kcal/protein needs Diagnosis Progress(for reassessment Resolved documentation) Is patient on ventilator? No Is Patient Ambulatory and/or Out of Bed Yes REE-([place]-ambulatory/OOB) [ 1491.022 [id number]] Kcal/Kg value to use for calculation 25 Approximate Energy Requirements Using 1508 kcal/Kg Calculation Used for Recommendations Kcal/kg Additional Notes Pro needs 1-1.2g/kg @ 60k -72g/day Fluid needs 1ml/kcal or per MD Nutrition Intervention Change Diet Order: continue Nutrition Support: n/a Add Supplement/Snack (indicate name/kcal n/a /protein ) Goal #1 PO intake of meals to be 75% or greater daily for LOS Goal #2 Weight to stabilize +/-3% current weight for LOS Follow-Up By: 08/07/21 Additional Comments f/u: po intake, weight
[2021-07-31] MEDS: ENOXAPARIN 40 MG/0.4 ML INJ SUB-Q SCH (22:00)
[2021-07-31] MEDS: ACETAMINOPHEN 325 MG TAB PO PRN (23:59)
[2021-08-01] MEDS: INSULIN LISPRO 100 UNIT/ML SUB-Q SCH ×4 (09:47→22:55)
[2021-08-01] MEDS: CHOLECALCIFEROL (VIT D3) 1000 UNIT (25 mcg) TAB PO SCH (11:07)
[2021-08-01] MEDS: ALPRAZolam 1 MG TAB PO SCH ×2 (11:07→22:04)
[2021-08-01] MEDS: ZINC SULFATE 220 MG CAP PO SCH ×2 (11:08→22:04)
[2021-08-01] MEDS: INSULIN GLARGINE 100 UNITS/ML SUB-Q SCH (11:08)
--- NOTE | 2021-08-01 16:06 | Progress Note ---
Assessment and Plan Assessment and plan: #Acute hypoxic/hypercapneic respiratory failure #Severe ARDS -Currently on high flow nasal cannula, currently on 30 L 70% FiO2 -trial BiPAP at night -maintain SpO2 >88% -Low threshold for intubation as patient is persistently tachypneic and tachycardic -s/p prednisone taper -Pulmonology following, assistance appreciated -encouraged prone positioning; patient has been poorly tolerating it overnight #Metabolic alkalosis -stable -Patient received multiple doses of Lasix over course of hospital stay but may be 2/2 to compensation for hypercapneia #Hypokalemia -will replete and monitor #Heart failure with preserved ejection fraction -TTE: LVEF 55-60% with diastolic dysfunction -will continue to monitor for signs of fluid overload #COVID-19 infection -Continue Covid vitamins #Type 2 diabetes -continue Lantus 5 units daily and sliding scale insulin #Anxiety -Stable -increased xanax dose at patients request #DVT prophylaxis -Lovenox 40 daily #Deconditioning -Will benefit from SNF after prolonged hospital stay #Advanced care planning -Disease education conducted, care plan discussed, diagnoses discussed, prognosis discussed, and patient acknowledges understanding with care plan -Time: +30 minutes Resolved issues #Sepsis secondary to COVID-19 #Iatrogenic diarrhea #Hypomagnesemia #Hyponatremia #Protein calorie malnutrition #Dysuria #Possible UTI Disposition Plan: Continue medical management Total Time Spent with Patient (Minutes): 40 minutes History Interval history: No acute events overnight Hospitalist Physical - Constitutional Vitals: Temp Pulse Resp BP Pulse Ox 97.8 F 95 H 39 H 112/61 96 08/01/21 12:00 08/01/21 16:00 08/01/21 16:00 08/01/21 16:00 08/01/21 16:00 General appearance: Present: no acute distress, well-nourished, obese, other (Looks tired) - EENT Eyes: Present: PERRL, EOM intact ENT: hearing intact, clear oral mucosa, dentition normal - Neck Neck: Present: supple, normal ROM - Respiratory Respiratory effort: normal Respiratory: bilateral: diminished (On high flow nasal cannula 30 L 70% FiO2) - Cardiovascular Rhythm: regular Heart Sounds: Present: S1 & S2 - Extremities Extremities: no ischemia, pulses intact, pulses symmetrical, No edema, normal temperature, normal color, Full ROM Peripheral Pulses: within normal limits - Abdominal General gastrointestinal: soft, non-tender, non-distended, normal bowel sounds - Integumentary Integumentary: Present: clear, warm, dry - Psychiatric Psychiatric: appropriate mood/affect, intact judgment & insight, memory intact, cooperative - Neurologic Neurologic: CNII-XII intact, moves all extremities - Allied Health Allied health notes reviewed: nursing Results - Labs CBC & Chem 7: 07/23/21 04:35 07/29/21 04:40 Labs: Laboratory Last Values WBC 10.8 K/mm3 (4.5-11.0) 07/23/21 04:35 RBC 3.84 M/mm3 (3.65-5.03) 07/23/21 04:35 Hgb 12.1 gm/dl (10.1-14.3) 07/23/21 04:35 Hct 37.6 % (30.3-42.9) 07/23/21 04:35 MCV 98 fl (79-97) H 07/23/21 04:35 MCH 32 pg (28-32) 07/23/21 04:35 MCHC 32 % (30-34) 07/23/21 04:35 RDW 16.2 % (13.2-15.2) H 07/23/21 04:35 Plt Count 367 K/mm3 (140-440) 07/23/21 04:35 Lymph % (Auto) 7.9 % (13.4-35.0) L 07/23/21 04:35 [place] % (Auto) 5.6 % (0.0-7.3) 07/23/21 04:35 Eos % (Auto) 0.8 % (0.0-4.3) 07/23/21 04:35 Baso % (Auto) 0.4 % (0.0-1.8) 07/23/21 04:35 Lymph # (Auto) 0.9 K/mm3 (1.2-5.4) L 07/23/21 04:35 [place] # (Auto) 0.6 K/mm3 (0.0-0.8) 07/23/21 04:35 Eos # (Auto) 0.1 K/mm3 (0.0-0.4) 07/23/21 04:35 Baso # (Auto) 0.0 K/mm3 (0.0-0.1) 07/23/21 04:35 Add Manual Diff Complete 07/09/21 04:45 Total Counted 100 07/09/21 04:45 Seg Neutrophils % 85.3 % (40.0-70.0) H 07/23/21 04:35 Seg Neuts % (Manual) 82.0 % (40.0-70.0) H 07/09/21 04:45 Band Neutrophils % 1.0 % 05/12/21 04:05 Lymphocytes % (Manual) 13.0 % (13.4-35.0) L 07/09/21 04:45 Monocytes % (Manual) 3.0 % (0.0-7.3) 07/09/21 04:45 Eosinophils % (Manual) 2.0 % (0.0-4.3) 07/09/21 04:45 Nucleated RBC % Not Reportable 07/09/21 04:45 Seg Neutrophils # 9.2 K/mm3 (1.8-7.7) H 07/23/21 04:35 Seg Neutrophils # Man 7.8 K/mm3 (1.8-7.7) H 07/09/21 04:45 Band Neutrophils # 0.0 K/mm3 07/09/21 04:45 Lymphocytes # (Manual) 1.2 K/mm3 (1.2-5.4) 07/09/21 04:45 Abs React Lymphs (Man) 0.0 K/mm3 07/09/21 04:45 Monocytes # (Manual) 0.3 K/mm3 (0.0-0.8) 07/09/21 04:45 Eosinophils # (Manual) 0.2 K/mm3 (0.0-0.4) 07/09/21 04:45 Basophils # (Manual) 0.0 K/mm3 (0.0-0.1) 07/09/21 04:45 Metamyelocytes # 0.0 K/mm3 07/09/21 04:45 Myelocytes # 0.0 K/mm3 07/09/21 04:45 Promyelocytes # 0.0 K/mm3 07/09/21 04:45 Blast Cells # 0.0 K/mm3 07/09/21 04:45 WBC Morphology Not Reportable 07/09/21 04:45 Hypersegmented Neuts Not Reportable 07/09/21 04:45 Hyposegmented Neuts Not Reportable 07/09/21 04:45 Hypogranular Neuts Not Reportable 07/09/21 04:45 Smudge Cells Not Reportable 07/09/21 04:45 Toxic Granulation Not Reportable 07/09/21 04:45 Toxic Vacuolation Not Reportable 07/09/21 04:45 Dohle Bodies Not Reportable 07/09/21 04:45 Pelger-Huet Anomaly Not Reportable 07/09/21 04:45 Janelle Rods Not Reportable 07/09/21 04:45 Platelet Estimate Consistent w auto 07/09/21 04:45 Clumped Platelets Not Reportable 07/09/21 04:45 Plt Clumps, EDTA Not Reportable 07/09/21 04:45 Large Platelets Not Reportable 07/09/21 04:45 Giant Platelets Rare 07/09/21 04:45 Platelet Satelliting Not Reportable 07/09/21 04:45 Plt Morphology Comment Not Reportable 07/09/21 04:45 RBC Morphology Not Reportable 07/09/21 04:45 Dimorphic RBCs Not Reportable 07/09/21 04:45 Polychromasia Not Reportable 07/09/21 04:45 Hypochromasia Few 07/09/21 04:45 Poikilocytosis Not Reportable 07/09/21 04:45 Anisocytosis Not Reportable 07/09/21 04:45 Microcytosis Not Reportable 07/09/21 04:45 Macrocytosis Not Reportable 07/09/21 04:45 Spherocytes Not Reportable 07/09/21 04:45 Pappenheimer Bodies Not Reportable 07/09/21 04:45 Sickle Cells Not Reportable 07/09/21 04:45 Target Cells Not Reportable 07/09/21 04:45 Tear Drop Cells Not Reportable 07/09/21 04:45 Ovalocytes Not Reportable 07/09/21 04:45 Stomatocytes 1+ 07/09/21 04:45 Helmet Cells Not Reportable 07/09/21 04:45 Ahuja-Hammond Bodies Not Reportable 07/09/21 04:45 [place] Rings Not Reportable 07/09/21 04:45 [place] Cells Not Reportable 07/09/21 04:45 Bite Cells Not Reportable 07/09/21 04:45 Crenated Cell Not Reportable 07/09/21 04:45 Elliptocytes Not Reportable 07/09/21 04:45 Acanthocytes (Spur) Not Reportable 07/09/21 04:45 Rouleaux Not Reportable 07/09/21 04:45 Hemoglobin C Crystals Not Reportable 07/09/21 04:45 Schistocytes Not Reportable 07/09/21 04:45 Malaria parasites Not Reportable 07/09/21 04:45 Justin Bodies Not Reportable 07/09/21 04:45 Hem Pathologist Commnt No 07/09/21 04:45 D-Dimer 638.35 ng/mlDDU (0-234) H 07/09/21 04:45 ABG pH 7.417 (7.320-7.450) 07/23/21 18:11 POC ABG pCO2 78.3 mmHg (32.0-48.0) H 07/23/21 18:11 ABG pCO2 85.7 mm Hg 07/22/21 12:05 POC ABG pO2 80.7 mmHg (83-108) L 07/23/21 18:11 ABG pO2 66.1 mm Hg (80.0-90.0) L 07/22/21 12:05 POC ABG HCO3 49.3 07/23/21 18:11 ABG HCO3 45.0 mmol/L (20.0-26.0) H 07/22/21 12:05 ABG O2 Saturation 96.7 (0-100) 07/23/21 18:11 ABG O2 Content 16.8 (0.0-44) 07/22/21 12:05 POC ABG Base Excess 20.5 07/23/21 18:11 ABG Base Excess 15.2 mmol/L (-2.0-3.0) H 07/22/21 12:05 ABG Hemoglobin 12.6 (12.0-17.5) 07/23/21 18:11 ABG Oxyhemoglobin 95.7 (94-98) 07/23/21 18:11 ABG Carboxyhemoglobin 1.9 % (0.0-5.0) 07/22/21 12:05 ABG Methemoglobin 0.3 (0.0-1.5) 07/23/21 18:11 ABG Sodium 134.9 mmol/L (136.0-145.0) L 07/23/21 18:11 ABG Potassium 3.9 mmol/L (3.40-4.50) 07/23/21 18:11 ABG Chloride 89.0 mmol/L (98-107) L 07/23/21 18:11 ABG Glucose 200 mg/dL (65-95) H 07/23/21 18:11 Oxyhemoglobin 91.9 % (95.0-99.0) L 07/22/21 12:05 Carboxyhemoglobin 0.7 (0.5-1.5) 07/23/21 18:11 FiO2 100 % 07/22/21 12:05 FiO2 % 100.0 07/23/21 18:11 Sodium 141 mmol/L (137-145) 07/29/21 04:40 Potassium 3.4 mmol/L (3.6-5.0) L 07/29/21 04:40 Chloride 92.3 mmol/L (98-107) L 07/29/21 04:40 Carbon Dioxide 40 mmol/L (22-30) H 07/29/21 04:40 Anion Gap 12 mmol/L 07/29/21 04:40 BUN 8 mg/dL (7-17) 07/29/21 04:40 Creatinine < 0.2 mg/dL (0.6-1.2) L 07/29/21 04:40 Estimated GFR > 60 ml/min 07/29/21 04:40 BUN/Creatinine Ratio 40 % 07/29/21 04:40 Glucose 125 mg/dL (65-100) H 07/29/21 04:40 POC Glucose 142 mg/dL (70-105) H 08/01/21 15:34 Hemoglobin A1c 8.5 % (4-6) H 04/18/21 07:36 Calcium 9.2 mg/dL (8.4-10.2) 07/29/21 04:40 Phosphorus 3.70 mg/dL (2.5-4.5) 07/23/21 04:35 Magnesium 2.10 mg/dL (1.7-2.3) 07/23/21 04:35 Ferritin 155.9 ng/mL (10.0-200.0) 07/09/21 04:45 Total Bilirubin < 0.20 mg/dL (0.1-1.2) 07/26/21 09:56 AST 23 units/L (5-40) 07/26/21 09:56 ALT 25 units/L (7-56) 07/26/21 09:56 Alkaline Phosphatase 69 units/L (35-129) 07/26/21 09:56 Lactate Dehydrogenase 475 units/L (91-180) H 06/05/21 05:26 C-Reactive Protein 4.30 mg/dL (0.00-1.30) H 07/09/21 04:45 NT-Pro-B Natriuret Pep 59.45 pg/mL (0-450) 07/07/21 13:40 Total Protein 8.1 g/dL (6.3-8.2) 07/26/21 09:56 Albumin 3.2 g/dL (3.9-5) L 07/26/21 09:56 Albumin/Globulin Ratio 0.7 % 07/26/21 09:56 Triglycerides < 9 mg/dL (2-149) 05/03/21 04:30 Procalcitonin < 0.05 ng/mL (<0.15) 05/23/21 09:50 Arterial Blood Glucose 200 mg/dL (65-95) H 07/23/21 18:11 Arterial Blood Ionized Calcium 4.6 mg/dL (4.6-5.3) 07/23/21 18:11 Coronavirus (PCR) Negative (Negative) 07/25/21 Unknown Amos/IV: Voiding Method External Female Catheter Active Medications - Current Medications Current Medications: Generic Name Dose Route Start Last Admin Trade Name Freq PRN Reason Stop Dose Admin Acetaminophen 650 mg 07/02/21 17:48 07/31/21 23:59 Acetaminophen 325 Mg Tab PO 650 mg Q4H PRN Administration Pain, Mild (1-3) Albuterol 2.5 mg 04/16/21 13:39 04/21/21 20:39 Albuterol 2.5 Mg/3 Ml Nebu IH 2.5 mg Q4HRT PRN Administration Shortness Of Breath Alprazolam 2 mg 07/29/21 22:00 08/01/21 11:07 Alprazolam 1 Mg Tab PO 2 mg BID TUTU Administration Calcium Carbonate/Glycine 500 mg 07/24/21 10:43 Calcium Carbonate 500 Mg Tab Chew PO BID PRN reflux Cholecalciferol 1,000 unit 04/17/21 10:00 08/01/21 11:07 Cholecalciferol (Vit D3) 1000 Unit (25 Mcg) Tab PO 1,000 unit QDAY TUTU Administration Enoxaparin Sodium 40 mg 05/19/21 22:00 07/31/21 22:00 Enoxaparin 40 Mg/0.4 Ml Inj SUB-Q 40 mg QDAY@2200 TUTU Administration Protocol Ibuprofen 600 mg 07/11/21 11:00 07/26/21 11:10 Ibuprofen 600 Mg Tab PO 600 mg Q6H PRN Administration Ear Pain Insulin Glargine 5 units 07/25/21 10:00 08/01/21 11:08 Insulin Glargine 100 Units/Ml SUB-Q 5 units DAILY TUTU Administration Insulin Human Lispro 0 unit 05/18/21 12:00 08/01/21 12:10 Insulin Lispro 100 Unit/Ml SUB-Q Not Given ACHS [facility] Protocol Ondansetron HCl 4 mg 04/16/21 14:00 05/30/21 10:07 Ondansetron 4 Mg/2 Ml Inj IV 4 mg Q8H PRN Administration Nausea And Vomiting Polyethylene Glycol 17 gm 07/16/21 20:00 Polyethylene Glycol 3350 17 Gm Powder PO QDAY PRN Constipation Sodium Chloride 10 ml 04/16/21 13:39 07/27/21 10:47 Sodium Chloride 0.9% 10 Ml Flush Syringe IV 10 ml PRN PRN Administration LINE FLUSH Zinc Sulfate 220 mg 04/16/21 22:00 08/01/21 11:08 Zinc Sulfate 220 Mg Cap PO 220 mg BID TUTU Administration Nutrition/Malnutrition Assess - Dietary Evaluation Nutrition/Malnutrition Findings: Nutrition Notes Start: 04/23/21 07:41 Freq: Status: Active Protocol: Document 07/03/21 16:54 GB (Rec: 07/03/21 17:11 GB [id number]) Nutrition Notes Initial or Follow up Reassessment Current Diagnosis Respiratory Failure Other Pertinent Diagnosis oral thrush, COVID-19 pneu Current Diet consistent carbohydrate Labs/Tests 07/03: creatinine 0.3, K 3.2 Pertinent Medications Vit C, Vit D3, D5 (PRN), Prednisone, NaCl, Zn Sulfate Height 4 ft 11.84 in Weight 60.3 kg [place] Body Weight (kg) 45.09 BMI 26.1 Weight change and time frame 04/16/21: 74.843kg 05/17/21: 68.1kg 06/16/21: 60.3kg change of -14.54kg for -19.43% in 60 days. Per MD note: pt has been diuresed thorughout stay. Weight Status Overweight Subjective/Other Information MD notes 07/03: pt showing improvement, prednisone weaning down, possible weaning of O2. Last BM: 07/02 PO intake recorded at 50-100% Percent of energy/protein needs met: PO intake of meals meet 75% or greater of EEN Burn Absent Trauma Absent GI Symptoms None Food Allergy No Skin Integrity/Comment skin tear rt/lt buttocks Current % PO Good (75-100%) Minimum of two criteria No #3 Nutrition Diagnosis No nutrition diagnosis at this time Etiology respiratory failure As Evidenced by Signs and Symptoms recovering, good po, weight loss r/t diurese therapy #2 Nutrition Diagnosis Malnutrition Comments: Wt loss due to diurese for most of stay. PO intake is recorded at 75- 100% Etiology acute illness As Evidenced by Signs and Symptoms <50% EER in >5 days, >5% wt loss in 1 month Diagnosis Progress(for reassessment Resolved documentation) #1 Nutrition Diagnosis Inadequate oral intake Etiology ARF As Evidenced by Signs and Symptoms pt continues to meet 100%/93% of kcal/protein needs Diagnosis Progress(for reassessment Resolved documentation) Is patient on ventilator? No Is Patient Ambulatory and/or Out of Bed Yes REE-([place]-ambulatory/OOB) [ 1491.022 [id number]] Kcal/Kg value to use for calculation 25 Approximate Energy Requirements Using 1508 kcal/Kg Calculation Used for Recommendations Kcal/kg Additional Notes Pro needs 1-1.2g/kg @ 60k -72g/day Fluid needs 1ml/kcal or per MD Nutrition Intervention Change Diet Order: continue Nutrition Support: n/a Add Supplement/Snack (indicate name/kcal n/a /protein ) Goal #1 PO intake of meals to be 75% or greater daily for LOS Goal #2 Weight to stabilize +/-3% current weight for LOS Follow-Up By: 08/07/21 Additional Comments f/u: po intake, weight
[2021-08-01] MEDS: ACETAMINOPHEN 325 MG TAB PO PRN (22:04)
[2021-08-01] MEDS: ENOXAPARIN 40 MG/0.4 ML INJ SUB-Q SCH (22:05)
[2021-08-02] MEDS: INSULIN LISPRO 100 UNIT/ML SUB-Q SCH ×3 (08:37→21:26)
[2021-08-02] MEDS: CHOLECALCIFEROL (VIT D3) 1000 UNIT (25 mcg) TAB PO SCH (10:05)
[2021-08-02] MEDS: ZINC SULFATE 220 MG CAP PO SCH ×2 (10:06→21:21)
[2021-08-02] MEDS: ALPRAZolam 1 MG TAB PO SCH ×2 (10:06→21:21)
[2021-08-02] MEDS: INSULIN GLARGINE 100 UNITS/ML SUB-Q SCH (10:06)
--- NOTE | 2021-08-02 12:56 | Progress Note ---
Assessment and Plan Assessment and plan: #Acute hypoxic/hypercapneic respiratory failure #Severe ARDS -Currently on high flow nasal cannula, currently on 35 L 75% FiO2 -trial BiPAP at night -maintain SpO2 >88% -Low threshold for intubation as patient is persistently tachypneic and tachycardic -s/p prednisone taper -Pulmonology following, assistance appreciated -encouraged prone positioning; patient has been poorly tolerating it overnight #Metabolic alkalosis -stable -Patient received multiple doses of Lasix over course of hospital stay but may be 2/2 to compensation for hypercapneia #Hypokalemia -will replete and monitor #Heart failure with preserved ejection fraction -TTE: LVEF 55-60% with diastolic dysfunction -will continue to monitor for signs of fluid overload #COVID-19 infection -Continue Covid vitamins #Type 2 diabetes -continue Lantus 5 units daily and sliding scale insulin #Anxiety -Stable -increased xanax dose at patients request #DVT prophylaxis -Lovenox 40 daily #Deconditioning -Will benefit from SNF after prolonged hospital stay #Advanced care planning -Disease education conducted, care plan discussed, diagnoses discussed, prognosis discussed, and patient acknowledges understanding with care plan -Time: +30 minutes Resolved issues #Sepsis secondary to COVID-19 #Iatrogenic diarrhea #Hypomagnesemia #Hyponatremia #Protein calorie malnutrition #Dysuria #Possible UTI Disposition Plan: Continue medical management Total Time Spent with Patient (Minutes): 45 minutes History Interval history: No acute events overnight. Hospitalist Physical - Constitutional Vitals: Temp Pulse Resp BP Pulse Ox 98.2 F 102 H 43 H 120/76 98 08/02/21 12:00 08/02/21 10:45 08/02/21 10:45 08/02/21 10:45 08/02/21 10:45 General appearance: Present: no acute distress, well-nourished, obese, other (Looks tired) - EENT Eyes: Present: PERRL, EOM intact ENT: hearing intact, clear oral mucosa, dentition normal - Neck Neck: Present: supple, normal ROM - Respiratory Respiratory effort: labored Respiratory: bilateral: diminished (On high flow nasal cannula 35 L 75% FiO2) - Cardiovascular Rhythm: regular Heart Sounds: Present: S1 & S2 - Extremities Extremities: no ischemia, pulses intact, pulses symmetrical, No edema, normal temperature, normal color, Full ROM Peripheral Pulses: within normal limits - Abdominal General gastrointestinal: soft, non-tender, non-distended, normal bowel sounds - Integumentary Integumentary: Present: clear, warm, dry - Psychiatric Psychiatric: appropriate mood/affect, intact judgment & insight, memory intact, cooperative - Neurologic Neurologic: CNII-XII intact, moves all extremities Results - Labs CBC & Chem 7: 07/23/21 04:35 07/29/21 04:40 Labs: Laboratory Last Values WBC 10.8 K/mm3 (4.5-11.0) 07/23/21 04:35 RBC 3.84 M/mm3 (3.65-5.03) 07/23/21 04:35 Hgb 12.1 gm/dl (10.1-14.3) 07/23/21 04:35 Hct 37.6 % (30.3-42.9) 07/23/21 04:35 MCV 98 fl (79-97) H 07/23/21 04:35 MCH 32 pg (28-32) 07/23/21 04:35 MCHC 32 % (30-34) 07/23/21 04:35 RDW 16.2 % (13.2-15.2) H 07/23/21 04:35 Plt Count 367 K/mm3 (140-440) 07/23/21 04:35 Lymph % (Auto) 7.9 % (13.4-35.0) L 07/23/21 04:35 [place] % (Auto) 5.6 % (0.0-7.3) 07/23/21 04:35 Eos % (Auto) 0.8 % (0.0-4.3) 07/23/21 04:35 Baso % (Auto) 0.4 % (0.0-1.8) 07/23/21 04:35 Lymph # (Auto) 0.9 K/mm3 (1.2-5.4) L 07/23/21 04:35 [place] # (Auto) 0.6 K/mm3 (0.0-0.8) 07/23/21 04:35 Eos # (Auto) 0.1 K/mm3 (0.0-0.4) 07/23/21 04:35 Baso # (Auto) 0.0 K/mm3 (0.0-0.1) 07/23/21 04:35 Add Manual Diff Complete 07/09/21 04:45 Total Counted 100 07/09/21 04:45 Seg Neutrophils % 85.3 % (40.0-70.0) H 07/23/21 04:35 Seg Neuts % (Manual) 82.0 % (40.0-70.0) H 07/09/21 04:45 Band Neutrophils % 1.0 % 05/12/21 04:05 Lymphocytes % (Manual) 13.0 % (13.4-35.0) L 07/09/21 04:45 Monocytes % (Manual) 3.0 % (0.0-7.3) 07/09/21 04:45 Eosinophils % (Manual) 2.0 % (0.0-4.3) 07/09/21 04:45 Nucleated RBC % Not Reportable 07/09/21 04:45 Seg Neutrophils # 9.2 K/mm3 (1.8-7.7) H 07/23/21 04:35 Seg Neutrophils # Man 7.8 K/mm3 (1.8-7.7) H 07/09/21 04:45 Band Neutrophils # 0.0 K/mm3 07/09/21 04:45 Lymphocytes # (Manual) 1.2 K/mm3 (1.2-5.4) 07/09/21 04:45 Abs React Lymphs (Man) 0.0 K/mm3 07/09/21 04:45 Monocytes # (Manual) 0.3 K/mm3 (0.0-0.8) 07/09/21 04:45 Eosinophils # (Manual) 0.2 K/mm3 (0.0-0.4) 07/09/21 04:45 Basophils # (Manual) 0.0 K/mm3 (0.0-0.1) 07/09/21 04:45 Metamyelocytes # 0.0 K/mm3 07/09/21 04:45 Myelocytes # 0.0 K/mm3 07/09/21 04:45 Promyelocytes # 0.0 K/mm3 07/09/21 04:45 Blast Cells # 0.0 K/mm3 07/09/21 04:45 WBC Morphology Not Reportable 07/09/21 04:45 Hypersegmented Neuts Not Reportable 07/09/21 04:45 Hyposegmented Neuts Not Reportable 07/09/21 04:45 Hypogranular Neuts Not Reportable 07/09/21 04:45 Smudge Cells Not Reportable 07/09/21 04:45 Toxic Granulation Not Reportable 07/09/21 04:45 Toxic Vacuolation Not Reportable 07/09/21 04:45 Dohle Bodies Not Reportable 07/09/21 04:45 Pelger-Huet Anomaly Not Reportable 07/09/21 04:45 Janelle Rods Not Reportable 07/09/21 04:45 Platelet Estimate Consistent w auto 07/09/21 04:45 Clumped Platelets Not Reportable 07/09/21 04:45 Plt Clumps, EDTA Not Reportable 07/09/21 04:45 Large Platelets Not Reportable 07/09/21 04:45 Giant Platelets Rare 07/09/21 04:45 Platelet Satelliting Not Reportable 07/09/21 04:45 Plt Morphology Comment Not Reportable 07/09/21 04:45 RBC Morphology Not Reportable 07/09/21 04:45 Dimorphic RBCs Not Reportable 07/09/21 04:45 Polychromasia Not Reportable 07/09/21 04:45 Hypochromasia Few 07/09/21 04:45 Poikilocytosis Not Reportable 07/09/21 04:45 Anisocytosis Not Reportable 07/09/21 04:45 Microcytosis Not Reportable 07/09/21 04:45 Macrocytosis Not Reportable 07/09/21 04:45 Spherocytes Not Reportable 07/09/21 04:45 Pappenheimer Bodies Not Reportable 07/09/21 04:45 Sickle Cells Not Reportable 07/09/21 04:45 Target Cells Not Reportable 07/09/21 04:45 Tear Drop Cells Not Reportable 07/09/21 04:45 Ovalocytes Not Reportable 07/09/21 04:45 Stomatocytes 1+ 07/09/21 04:45 Helmet Cells Not Reportable 07/09/21 04:45 Ahuja-[place] Bodies Not Reportable 07/09/21 04:45 [place] Rings Not Reportable 07/09/21 04:45 Crow Cells Not Reportable 07/09/21 04:45 Bite Cells Not Reportable 07/09/21 04:45 Crenated Cell Not Reportable 07/09/21 04:45 Elliptocytes Not Reportable 07/09/21 04:45 Acanthocytes (Spur) Not Reportable 07/09/21 04:45 Rouleaux Not Reportable 07/09/21 04:45 Hemoglobin C Crystals Not Reportable 07/09/21 04:45 Schistocytes Not Reportable 07/09/21 04:45 Malaria parasites Not Reportable 07/09/21 04:45 Justin Bodies Not Reportable 07/09/21 04:45 Hem Pathologist Commnt No 07/09/21 04:45 D-Dimer 638.35 ng/mlDDU (0-234) H 07/09/21 04:45 ABG pH 7.417 (7.320-7.450) 07/23/21 18:11 POC ABG pCO2 78.3 mmHg (32.0-48.0) H 07/23/21 18:11 ABG pCO2 85.7 mm Hg 07/22/21 12:05 POC ABG pO2 80.7 mmHg (83-108) L 07/23/21 18:11 ABG pO2 66.1 mm Hg (80.0-90.0) L 07/22/21 12:05 POC ABG HCO3 49.3 07/23/21 18:11 ABG HCO3 45.0 mmol/L (20.0-26.0) H 07/22/21 12:05 ABG O2 Saturation 96.7 (0-100) 07/23/21 18:11 ABG O2 Content 16.8 (0.0-44) 07/22/21 12:05 POC ABG Base Excess 20.5 07/23/21 18:11 ABG Base Excess 15.2 mmol/L (-2.0-3.0) H 07/22/21 12:05 ABG Hemoglobin 12.6 (12.0-17.5) 07/23/21 18:11 ABG Oxyhemoglobin 95.7 (94-98) 07/23/21 18:11 ABG Carboxyhemoglobin 1.9 % (0.0-5.0) 07/22/21 12:05 ABG Methemoglobin 0.3 (0.0-1.5) 07/23/21 18:11 ABG Sodium 134.9 mmol/L (136.0-145.0) L 07/23/21 18:11 ABG Potassium 3.9 mmol/L (3.40-4.50) 07/23/21 18:11 ABG Chloride 89.0 mmol/L (98-107) L 07/23/21 18:11 ABG Glucose 200 mg/dL (65-95) H 07/23/21 18:11 Oxyhemoglobin 91.9 % (95.0-99.0) L 07/22/21 12:05 Carboxyhemoglobin 0.7 (0.5-1.5) 07/23/21 18:11 FiO2 100 % 07/22/21 12:05 FiO2 % 100.0 07/23/21 18:11 Sodium 141 mmol/L (137-145) 07/29/21 04:40 Potassium 3.4 mmol/L (3.6-5.0) L 07/29/21 04:40 Chloride 92.3 mmol/L (98-107) L 07/29/21 04:40 Carbon Dioxide 40 mmol/L (22-30) H 07/29/21 04:40 Anion Gap 12 mmol/L 07/29/21 04:40 BUN 8 mg/dL (7-17) 07/29/21 04:40 Creatinine < 0.2 mg/dL (0.6-1.2) L 07/29/21 04:40 Estimated GFR > 60 ml/min 07/29/21 04:40 BUN/Creatinine Ratio 40 % 07/29/21 04:40 Glucose 125 mg/dL (65-100) H 07/29/21 04:40 POC Glucose 136 mg/dL (70-105) H 08/02/21 11:58 Hemoglobin A1c 8.5 % (4-6) H 04/18/21 07:36 Calcium 9.2 mg/dL (8.4-10.2) 07/29/21 04:40 Phosphorus 3.70 mg/dL (2.5-4.5) 07/23/21 04:35 Magnesium 2.10 mg/dL (1.7-2.3) 07/23/21 04:35 Ferritin 155.9 ng/mL (10.0-200.0) 07/09/21 04:45 Total Bilirubin < 0.20 mg/dL (0.1-1.2) 07/26/21 09:56 AST 23 units/L (5-40) 07/26/21 09:56 ALT 25 units/L (7-56) 07/26/21 09:56 Alkaline Phosphatase 69 units/L (35-129) 07/26/21 09:56 Lactate Dehydrogenase 475 units/L (91-180) H 06/05/21 05:26 C-Reactive Protein 4.30 mg/dL (0.00-1.30) H 07/09/21 04:45 NT-Pro-B Natriuret Pep 59.45 pg/mL (0-450) 07/07/21 13:40 Total Protein 8.1 g/dL (6.3-8.2) 07/26/21 09:56 Albumin 3.2 g/dL (3.9-5) L 07/26/21 09:56 Albumin/Globulin Ratio 0.7 % 07/26/21 09:56 Triglycerides < 9 mg/dL (2-149) 05/03/21 04:30 Procalcitonin < 0.05 ng/mL (<0.15) 05/23/21 09:50 Arterial Blood Glucose 200 mg/dL (65-95) H 07/23/21 18:11 Arterial Blood Ionized Calcium 4.6 mg/dL (4.6-5.3) 07/23/21 18:11 Coronavirus (PCR) Negative (Negative) 07/25/21 Unknown Amos/IV: Voiding Method External Female Catheter Active Medications - Current Medications Current Medications: Generic Name Dose Route Start Last Admin Trade Name Freq PRN Reason Stop Dose Admin Acetaminophen 650 mg 07/02/21 17:48 08/01/21 22:04 Acetaminophen 325 Mg Tab PO 650 mg Q4H PRN Administration Pain, Mild (1-3) Albuterol 2.5 mg 04/16/21 13:39 04/21/21 20:39 Albuterol 2.5 Mg/3 Ml Nebu IH 2.5 mg Q4HRT PRN Administration Shortness Of Breath Alprazolam 2 mg 07/29/21 22:00 08/02/21 10:06 Alprazolam 1 Mg Tab PO 2 mg BID TUTU Administration Calcium Carbonate/Glycine 500 mg 07/24/21 10:43 Calcium Carbonate 500 Mg Tab Chew PO BID PRN reflux Cholecalciferol 1,000 unit 04/17/21 10:00 08/02/21 10:05 Cholecalciferol (Vit D3) 1000 Unit (25 Mcg) Tab PO 1,000 unit QDAY TUTU Administration Enoxaparin Sodium 40 mg 05/19/21 22:00 08/01/21 22:05 Enoxaparin 40 Mg/0.4 Ml Inj SUB-Q 40 mg QDAY@2200 TUTU Administration Protocol Ibuprofen 600 mg 07/11/21 11:00 07/26/21 11:10 Ibuprofen 600 Mg Tab PO 600 mg Q6H PRN Administration Ear Pain Insulin Glargine 5 units 07/25/21 10:00 08/02/21 10:06 Insulin Glargine 100 Units/Ml SUB-Q 5 units DAILY TUTU Administration Insulin Human Lispro 0 unit 05/18/21 12:00 08/02/21 08:37 Insulin Lispro 100 Unit/Ml SUB-Q Not Given [facility] Protocol Ondansetron HCl 4 mg 04/16/21 14:00 05/30/21 10:07 Ondansetron 4 Mg/2 Ml Inj IV 4 mg Q8H PRN Administration Nausea And Vomiting Polyethylene Glycol 17 gm 07/16/21 20:00 Polyethylene Glycol 3350 17 Gm Powder PO QDAY PRN Constipation Sodium Chloride 10 ml 04/16/21 13:39 07/27/21 10:47 Sodium Chloride 0.9% 10 Ml Flush Syringe IV 10 ml PRN PRN Administration LINE FLUSH Zinc Sulfate 220 mg 04/16/21 22:00 08/02/21 10:06 Zinc Sulfate 220 Mg Cap PO 220 mg BID TUTU Administration Nutrition/Malnutrition Assess - Dietary Evaluation Nutrition/Malnutrition Findings: Nutrition Notes Start: 04/23/21 07:41 Freq: Status: Active Protocol: Document 07/03/21 16:54 GB (Rec: 07/03/21 17:11 GB [id number]) Nutrition Notes Initial or Follow up Reassessment Current Diagnosis Respiratory Failure Other Pertinent Diagnosis oral thrush, COVID-19 pneu Current Diet consistent carbohydrate Labs/Tests 07/03: creatinine 0.3, K 3.2 Pertinent Medications Vit C, Vit D3, D5 (PRN), Prednisone, NaCl, Zn Sulfate Height 4 ft 11.84 in Weight 60.3 kg [place] Body Weight (kg) 45.09 BMI 26.1 Weight change and time frame 04/16/21: 74.843kg 05/17/21: 68.1kg 06/16/21: 60.3kg change of -14.54kg for -19.43% in 60 days. Per MD note: pt has been diuresed thorughout stay. Weight Status Overweight Subjective/Other Information MD notes 07/03: pt showing improvement, prednisone weaning down, possible weaning of O2. Last BM: 07/02 PO intake recorded at 50-100% Percent of energy/protein needs met: PO intake of meals meet 75% or greater of EEN Burn Absent Trauma Absent GI Symptoms None Food Allergy No Skin Integrity/Comment skin tear rt/lt buttocks Current % PO Good (75-100%) Minimum of two criteria No #3 Nutrition Diagnosis No nutrition diagnosis at this time Etiology respiratory failure As Evidenced by Signs and Symptoms recovering, good po, weight loss r/t diurese therapy #2 Nutrition Diagnosis Malnutrition Comments: Wt loss due to diurese for most of stay. PO intake is recorded at 75- 100% Etiology acute illness As Evidenced by Signs and Symptoms <50% EER in >5 days, >5% wt loss in 1 month Diagnosis Progress(for reassessment Resolved documentation) #1 Nutrition Diagnosis Inadequate oral intake Etiology ARF As Evidenced by Signs and Symptoms pt continues to meet 100%/93% of kcal/protein needs Diagnosis Progress(for reassessment Resolved documentation) Is patient on ventilator? No Is Patient Ambulatory and/or Out of Bed Yes REE-([place]-St. Jeor-ambulatory/OOB) [ 1491.022 [id number]] Kcal/Kg value to use for calculation 25 Approximate Energy Requirements Using 1508 kcal/Kg Calculation Used for Recommendations Kcal/kg Additional Notes Pro needs 1-1.2g/kg @ 60k -72g/day Fluid needs 1ml/kcal or per MD Nutrition Intervention Change Diet Order: continue Nutrition Support: n/a Add Supplement/Snack (indicate name/kcal n/a /protein ) Goal #1 PO intake of meals to be 75% or greater daily for LOS Goal #2 Weight to stabilize +/-3% current weight for LOS Follow-Up By: 08/07/21 Additional Comments f/u: po intake, weight
[2021-08-02] MEDS: ACETAMINOPHEN 325 MG TAB PO PRN (21:21)
[2021-08-02] MEDS: ENOXAPARIN 40 MG/0.4 ML INJ SUB-Q SCH (21:22)
[2021-08-03] MEDS: CHOLECALCIFEROL (VIT D3) 1000 UNIT (25 mcg) TAB PO SCH (09:41)
[2021-08-03] MEDS: INSULIN LISPRO 100 UNIT/ML SUB-Q SCH ×3 (09:41→21:35)
[2021-08-03] MEDS: ZINC SULFATE 220 MG CAP PO SCH ×2 (09:41→21:36)
[2021-08-03] MEDS: INSULIN GLARGINE 100 UNITS/ML SUB-Q SCH (09:42)
[2021-08-03] MEDS: ALPRAZolam 1 MG TAB PO SCH ×2 (09:42→21:36)
--- NOTE | 2021-08-03 10:50 | Progress Note ---
Assessment and Plan 50 y/o female with acute respiratory failure secondary to COVID19 pneumonia. 08/03/21: COntinue supportive measures. Thank you for documenting refusal of NIV at night. Will attempt to speak with patient about anxiety and why she doesn't want to wear the NIV via the language line. 08/02/21: Continue supportive care. pLaced new order for NIV at night. Please document if patient refuses 07/31/21: COntinue to wean FiO2 as tolerated. NIV at night. 07/30/21: Bipap QHS. Please document if patient is refusing this at night. Per nurse she has refused but RT documentation reflects that it was PRN and not needed. Prognosis is still guarded. 07/29/21: Continue to attempt to wean FiO2. Given fluctuations in oxygen requirements, ok with keeping in IMCU. consider using bipap therapy at night if patient will allow. Prognosis still remains guarded. Patient has been here 104 days. 07/21/21: Wean FiO2 as tolerated. Patient has never proned the entire 96 days she has been here. Will continue bipap at night. Hold on lasix again today. Prognosis remains guarded. Has finished steroids and all other experimental COVID drugs with minimal to no improvement. 07/20/21: Give patient a break off of bipap and attempt high flow nasal cannula today. Will feed. Suggest keeping bipap therapy at night. Monitor fluid balance and BP. May need more lasix. 07/19/21: This was not related to stopping steroids as hemodynamically she is stable. Her sats is very good on 90%, I dropped to 85 and will continue to wean. She speaks no kiswahili and is very anxious. This adds to her work of breathing. COntinue to wean FiO2 as tolerated. Will give periodic breaks on bipap therapy. Guarded prognosis. 07/17/21: will stop steroids today. Hold on lasix given marginal blood pressure. Guarded prognosis. 07/15/21: Lasix today. Positive fluid balance all weekend based on I/O. Prone. Wean for sats >88% 07/12/21: Gave lasix 40mg IV again this am. Per charting yesterday was the first net negative day. Suggest PRN diuresis over the weekend as well. My partner is rounding but will likely see as needed. Continue to wean for sats >88% 07/11/21: Lasix 40mg IV this am. Attempt to prone if able. Attempt to achieve daily net negative state. Wean for sats >88%. Guarded prognosis. Will change prednisone to 5mg daily starting tomorrow. 07/09/21: Echo shows diastolic dysfunction. Will given an additional 40 of IV lasix today. Monitor daily and wean aggressively for sats >88% 07/08/21: Worsening CXR, Gave lasix yesterday and will give again today. Suggest checking echo, ekg. Prognosis is poor now with this change. 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 07/05/21: Will monitor over the weekend. Worst case scenario, may need to go back up to Prednisone 20 at least. Prone if able. Unsure why all of sudden oxygen requirement increasing. Will repeat CXR. 07/03/21: Down to 10 of prednisone. Will keep through the weekend and then drop to 5 on Thursday. PT/OT assessment if not done. Suggest maybe weaning flow now given FiO2 down to 50%. Prognosis is still guarded. 07/01/21: Will drop steroids to 10mg daily starting tomorrow. Wean for sats >88%. Prone. PT/OT should be seeing now that oxygen requirement is down more. 06/28/21: Continue to wean as tolerated. Will drop steroids down even further next week. Will see PRN over the weekend. 06/26/21: Will drop steroids down to 20 starting tomorrow. Prone. Continue to wean as tolerated. 06/24/21: Continue Pred, will drop to 20 daily tomorrow. Prone if able. Hopeful they can wean FiO2 more. May need to consider increasing flow for a while. 06/21/21: Continue pred at 40, will decrease likely Thursday/Thursday to 20 daily. Prone if able. Continue to wean as tolerated. Prognosis still remains guarded. 06/20/21: Will drop steroids down to 40 today. Proning. Continue to wean FiO2. 06/18/21: Wean Fio2 for sats >88%. Please encourage proning. Drop steroids down to 40 on . 06/14/21: Continue oral steroid therapy. Will do further weaning next week. Wean for sats >88% and prone as tolerated. Will see as needed over the weekend. 06/13/21: Will change to prednisone 60 daily starting tomorrow. Prone if able and wean for sats >88% 06/11/21: no new recs, will change to oral steroids tomorrow, continue to prone if able and wean for sats >88% 06/10/21: Will change to oral steroids on Thursday to begin prolonged taper 06/06/21: Continue to wean as tolerated, will drop steroids on tomorrow. 06/04/21: Clinically no change. Will drop steroids down the end of this week. 05/31/21: Clinically no change. Not eligible for LTACH. Encourage Proning. Will drop steroids down to 40 q8 05/29/21: No acute changes clinically. Still on HFNC but not really able to wean. Continue to encourage proning. Will drop steroids further on Thursday. 05/27/21: No improvement over the weekend but also no worsening. No other strategies to offer. Please continue to encourage patient to prone. I dropped steroids on yesterday. Will wean more later in the week. 05/24/21: No new recs again for today. Will see as needed over the weekend but follow chart peripherally for changes. 05/22/21: No new recs for today. Prognosis remains guarded. 05/21/21: Wean as tolerated. Prone if able. Guarded prognosis 05/20/21: COntinue current level of care. 05/17/21: Prone if possible. Wean FiO2 for sats >88%. Continue scheduled ativan. Prognosis is very very guarded. Unfunded so not a candidate for LTACH 05/16/21: Prone if willing. Wean FIO2 if patient will allow. Anxiety control. Prognosis still remains very guarded. 05/15/21: Not sure if MAR is accurate but may have only gotten one dose of scheduled anixolytic therapy. Continue proning as tolerated, and wean FiO2 and flow for sats >88%. Prognosi remains very very guarded to poor. 05/14/21: Will discontinue the buspar and make the ativan scheduled but will do q6 as oppose to q4 and attempt to leave parameters for nursing when not to give. If anxiety could be controlled, feel that patient could be weaned further. She has no funding so she is not a candidate for LTACH. Prone if possible. Guarded prognosis. This is her 28 day. 05/13/21: Ordered buspar 10 BID to start with to help with anxiety. Please continue to wean FiO2 as tolerated. Will remind nurse that there is PRN ativan available. Continue higher doses of steroids. Prone if able. 05/12/21: Patient may need something longer acting for anxiety. Per chart has not gotten any ativan in days. Would be ok with either buspar or low dose klonopin bid. COntinue higher doses of steroids as patient seems to be responding. Prone if possible. 05/11/21: Continue high doses of steroids and continue to wean for sats >88%. Please encourage proning. 05/10/21: Will continue this dose of steroid at least through the weekend and assess for improvement. will speak with RT about aggressive weaning. Full dose anticoagulation continues. Very very guarded to poor prognosis. 05/09/21: Going to consider increasing steroids to 125q8, maybe as early as tomorrow. continue full dose anticoagulation. 05/08/21: Continue anticoagulation and steroids. Prone if possible. Anxiety control. No objection to CTA if this can happen. Very very guarded prognosis. 05/07/21: Spoke with IMS, not opposed to full dose anticoagulation. If patient goes back on NRB HFNC combo may need to consider restarting PPN again. Encourage proning. Guarded prognosis. 05/06/21: Continue to wean FiO2 and flow for sats >88%. Tolerating diet now so will stop PPN. Continue anxiety control. Continue IV steroids. Would not object to transfer to [facility] if bed available. Not sure why she was titrated back up to 100% from 85 as all sats documented in the RT's notes were acceptable. Same for under vital signs as well. 05/03/21: Set back last night from yesterday. Continue bipap therapy for now and attempt HFNC maybe later this afternoon. Continue to use PRN ativan but may need to schedule as she likely took off mask from anxiety. Continue IV steroids. Hold on transfer to [facility] Floor. 05/02/21: Continue to wean FiO2 as tolerated for sats >88%. Will continue bipap at night. Patient has no funding so not a candidate for LTACH. Given that she has been stable and not requiring the combo of HFNC and NRB, will consider moving to [facility]. 05/01/21: Continue to wean FiO2 for sats >88%. A sat of 90 is more than acceptable and oxygen should not be increased for this unless patient desats and remains at a sat lower than 88. Bipap at night to give some form of relief and HFNC during the day. Currently on just this alone which is improvement. Ok with daily diuresis but must monitor renal function and BP closely. She was over diuresed last week and we ended up giving fluid back. Prognosis remains guarded. 04/30/21: Will start CLinimix today for nutritional support, without electrolytes. Check labs in am. Prone if able. Continue precedx for anxiety. Very very guarded prognosis. Attempting our best to not intubate. 04/29/21: Continue precedex. Continue IV solumedrol. Prone if able. Guarded prognosis. 04/28/21: Continue Precedex. Picc team attempting to place line now. Stable on Bipap. Ordered steroids IV solumedrol to start today. Prognosis remains guarded, still at very high risk for intubation. 04/27/21: Hypotension improving/improved. Hold on any further lasix dosing. Continue precedex to help with anxeity. later today please attempt HFNC with NRB if needed. Attempt to feed if possible. Steroids end today, please order solumedrol 40q8 to start tomorrow (04/28/21). guarded prognosis. 04/26/21: Hypotension today, most likely from precedex use and diuresis that I did the last several days. Will bolus again today. Consider midodrine if BP does not respond. 04/25/21: Lasix again today. Keep PRN ativan for now. Hold on precedex for now. Guarded prognosis. Labs ordered for tomorrow. 04/24/21: Lasix today. Will also start patient on low dose PRN ativan. If this does not help will then try precedex. Guarded prognosis. 04/23/21: Prone as tolerated. No lasix today. Continue decadron. Guarded prognosis. High risk for intubation and high mortality with intubation. 04/19/21: Prone as tolerated during the day and sleep prone at night. Continue IV remdesivir and steroids. Did get actemra. Guarded prognosis. 1. Daily net negative state 2. Prone if possible 3. IV remdesivir. 4. Should be a candidate for Actemra 5. IV steroids 6. Guarded Prognosis Subjective Date of service: 08/03/21 Principal diagnosis: Covid-19 Interval history: Patient refusing bipap therapy at night. REmains on HFNC. Objective Vital Signs - 12hr 08/02/21 08/02/21 08/03/21 23:00 23:37 00:00 Temperature 98.6 F Pulse Rate 100 H 96 H 94 H Pulse Rate [ From Monitor] Respiratory 36 H 32 H 31 H Rate Blood Pressure 102/53 102/53 104/63 O2 Sat by Pulse 95 96 94 Oximetry 08/03/21 08/03/21 08/03/21 00:02 01:00 01:03 Temperature Pulse Rate 94 H Pulse Rate [ 93 H From Monitor] Respiratory 34 H 33 H Rate Blood Pressure 117/66 O2 Sat by Pulse 95 93 97 Oximetry 08/03/21 08/03/21 08/03/21 02:00 03:00 03:44 Temperature Pulse Rate 94 H 92 H Pulse Rate [ From Monitor] Respiratory 31 H 35 H Rate Blood Pressure 113/64 113/69 O2 Sat by Pulse 94 96 97 Oximetry 08/03/21 08/03/21 08/03/21 04:00 05:00 06:00 Temperature Pulse Rate 91 H 91 H 92 H Pulse Rate [ From Monitor] Respiratory 32 H 33 H 34 H Rate Blood Pressure 116/69 111/72 126/69 O2 Sat by Pulse 98 97 Oximetry 08/03/21 08/03/21 08/03/21 07:00 08:00 08:59 Temperature 97.6 F Pulse Rate 94 H 93 H Pulse Rate [ From Monitor] Respiratory 24 31 H Rate Blood Pressure 122/67 126/69 O2 Sat by Pulse 91 96 99 Oximetry 08/03/21 08/03/21 09:00 09:40 Temperature Pulse Rate 95 H Pulse Rate [ From Monitor] Respiratory 31 H Rate Blood Pressure 131/73 O2 Sat by Pulse 97 88 Oximetry Constitutional: no acute distress, alert, other (on hiflo o2) Eyes: non-icteric ENT: oropharynx moist Neck: supple Effort: normal Ascultation: Bilateral: diminished breath sounds Cardiovascular: regular rate and rhythm Gastrointestinal: normoactive bowel sounds, soft, non-tender, non-distended Integumentary: normal Extremities: no cyanosis, no edema, pink and warm Neurologic: non-focal exam, pupils equal and round Psychiatric: mood appropriate, affect normal CBC and BMP: 07/23/21 04:35 07/29/21 04:40 ABG, PT/INR, D-dimer: ABG ABG pH 7.417 (7.320-7.450) 07/23/21 18:11 POC ABG pCO2 78.3 mmHg (32.0-48.0) H 07/23/21 18:11 ABG pCO2 85.7 mm Hg 07/22/21 12:05 POC ABG pO2 80.7 mmHg (83-108) L 07/23/21 18:11 ABG pO2 66.1 mm Hg (80.0-90.0) L 07/22/21 12:05 POC ABG HCO3 49.3 07/23/21 18:11 ABG O2 Saturation 96.7 (0-100) 07/23/21 18:11 PT/INR, D-dimer D-Dimer 638.35 ng/mlDDU (0-234) H 07/09/21 04:45 Abnormal lab findings: Abnormal Labs 04/16/21 04/16/21 04/16/21 11:42 11:42 11:42 WBC MCV MCH MCHC RDW 16.1 H Lymph % (Auto) 7.8 L [place] % (Auto) Eos % (Auto) Lymph # (Auto) 0.8 L [place] # (Auto) Eos # (Auto) Baso # (Auto) Seg Neutrophils % 87.7 H Seg Neuts % (Manual) Lymphocytes % (Manual) Seg Neutrophils # 8.5 H Seg Neutrophils # Man Lymphocytes # (Manual) D-Dimer 338.70 H ABG pH POC ABG pCO2 POC ABG pO2 ABG pO2 ABG HCO3 ABG O2 Saturation ABG Base Excess ABG Oxyhemoglobin ABG Sodium ABG Chloride ABG Glucose Oxyhemoglobin Carboxyhemoglobin Sodium Potassium Chloride Carbon Dioxide BUN Creatinine Glucose 194 H POC Glucose Hemoglobin A1c Magnesium Ferritin AST ALT Alkaline Phosphatase Lactate Dehydrogenase C-Reactive Protein Total Protein 8.4 H Albumin 3.8 L Arterial Blood Glucose Coronavirus (PCR) 04/16/21 04/16/21 04/17/21 11:42 11:42 03:50 WBC MCV MCH MCHC RDW 16.0 H Lymph % (Auto) 7.7 L [place] % (Auto) Eos % (Auto) Lymph # (Auto) 0.6 L [place] # (Auto) Eos # (Auto) Baso # (Auto) Seg Neutrophils % 89.8 H Seg Neuts % (Manual) Lymphocytes % (Manual) Seg Neutrophils # Seg Neutrophils # Man Lymphocytes # (Manual) D-Dimer ABG pH POC ABG pCO2 POC ABG pO2 ABG pO2 ABG HCO3 ABG O2 Saturation ABG Base Excess ABG Oxyhemoglobin ABG Sodium ABG Chloride ABG Glucose Oxyhemoglobin Carboxyhemoglobin Sodium Potassium Chloride Carbon Dioxide BUN Creatinine Glucose 195 H POC Glucose Hemoglobin A1c Magnesium Ferritin 254.3 H AST ALT Alkaline Phosphatase Lactate Dehydrogenase 359 H C-Reactive Protein 15.20 H Total Protein Albumin Arterial Blood Glucose Coronavirus (PCR) 04/17/21 04/17/21 04/17/21 03:50 08:26 08:26 WBC MCV MCH MCHC RDW Lymph % (Auto) [place] % (Auto) Eos % (Auto) Lymph # (Auto) [place] # (Auto) Eos # (Auto) Baso # (Auto) Seg Neutrophils % Seg Neuts % (Manual) Lymphocytes % (Manual) Seg Neutrophils # Seg Neutrophils # Man Lymphocytes # (Manual) D-Dimer 262.48 H ABG pH POC ABG pCO2 POC ABG pO2 ABG pO2 ABG HCO3 ABG O2 Saturation ABG Base Excess ABG Oxyhemoglobin ABG Sodium ABG Chloride ABG Glucose Oxyhemoglobin Carboxyhemoglobin Sodium Potassium Chloride Carbon Dioxide BUN 20 H Creatinine 0.5 L Glucose 249 H 225 H POC Glucose Hemoglobin A1c Magnesium Ferritin AST ALT Alkaline Phosphatase Lactate Dehydrogenase 338 H C-Reactive Protein 17.20 H Total Protein Albumin 3.2 L Arterial Blood Glucose Coronavirus (PCR) 04/17/21 04/17/21 04/17/21 08:26 15:04 Unknown WBC MCV MCH MCHC RDW Lymph % (Auto) [place] % (Auto) Eos % (Auto) Lymph # (Auto) [place] # (Auto) Eos # (Auto) Baso # (Auto) Seg Neutrophils % Seg Neuts % (Manual) Lymphocytes % (Manual) Seg Neutrophils # Seg Neutrophils # Man Lymphocytes # (Manual) D-Dimer ABG pH POC ABG pCO2 POC ABG pO2 ABG pO2 ABG HCO3 ABG O2 Saturation ABG Base Excess ABG Oxyhemoglobin ABG Sodium ABG Chloride ABG Glucose Oxyhemoglobin Carboxyhemoglobin Sodium Potassium Chloride Carbon Dioxide BUN 20 H Creatinine 0.5 L Glucose 246 H POC Glucose Hemoglobin A1c Magnesium Ferritin 392.0 H AST ALT Alkaline Phosphatase Lactate Dehydrogenase C-Reactive Protein Total Protein 8.3 H Albumin 3.1 L Arterial Blood Glucose Coronavirus (PCR) Positive A 04/18/21 04/18/21 04/18/21 05:06 05:06 07:36 WBC 11.6 H MCV MCH MCHC RDW 16.1 H Lymph % (Auto) [place] % (Auto) Eos % (Auto) Lymph # (Auto) [place] # (Auto) Eos # (Auto) Baso # (Auto) Seg Neutrophils % Seg Neuts % (Manual) Lymphocytes % (Manual) Seg Neutrophils # Seg Neutrophils # Man Lymphocytes # (Manual) D-Dimer ABG pH POC ABG pCO2 POC ABG pO2 ABG pO2 ABG HCO3 ABG O2 Saturation ABG Base Excess ABG Oxyhemoglobin ABG Sodium ABG Chloride ABG Glucose Oxyhemoglobin Carboxyhemoglobin Sodium Potassium 5.2 H Chloride Carbon Dioxide BUN 22 H Creatinine 0.5 L Glucose 315 H POC Glucose Hemoglobin A1c 8.5 H Magnesium Ferritin AST ALT Alkaline Phosphatase Lactate Dehydrogenase C-Reactive Protein Total Protein Albumin 3.3 L Arterial Blood Glucose Coronavirus (PCR) 04/18/21 04/18/21 04/18/21 11:59 16:43 23:24 WBC MCV MCH MCHC RDW Lymph % (Auto) [place] % (Auto) Eos % (Auto) Lymph # (Auto) [place] # (Auto) Eos # (Auto) Baso # (Auto) Seg Neutrophils % Seg Neuts % (Manual) Lymphocytes % (Manual) Seg Neutrophils # Seg Neutrophils # Man Lymphocytes # (Manual) D-Dimer ABG pH POC ABG pCO2 POC ABG pO2 ABG pO2 ABG HCO3 ABG O2 Saturation ABG Base Excess ABG Oxyhemoglobin ABG Sodium ABG Chloride ABG Glucose Oxyhemoglobin Carboxyhemoglobin Sodium Potassium Chloride Carbon Dioxide BUN Creatinine Glucose POC Glucose 284 H 273 H 290 H Hemoglobin A1c Magnesium Ferritin AST ALT Alkaline Phosphatase Lactate Dehydrogenase C-Reactive Protein Total Protein Albumin Arterial Blood Glucose Coronavirus (PCR) 04/19/21 04/19/21 04/19/21 04:19 04:19 08:10 WBC MCV MCH MCHC RDW 15.7 H Lymph % (Auto) [place] % (Auto) Eos % (Auto) Lymph # (Auto) [place] # (Auto) Eos # (Auto) Baso # (Auto) Seg Neutrophils % Seg Neuts % (Manual) Lymphocytes % (Manual) Seg Neutrophils # Seg Neutrophils # Man Lymphocytes # (Manual) D-Dimer ABG pH POC ABG pCO2 POC ABG pO2 ABG pO2 ABG HCO3 ABG O2 Saturation ABG Base Excess ABG Oxyhemoglobin ABG Sodium ABG Chloride ABG Glucose Oxyhemoglobin Carboxyhemoglobin Sodium Potassium Chloride Carbon Dioxide BUN 27 H Creatinine 0.4 L Glucose 184 H POC Glucose 194 H Hemoglobin A1c Magnesium Ferritin AST ALT Alkaline Phosphatase Lactate Dehydrogenase C-Reactive Protein Total Protein Albumin 3.1 L Arterial Blood Glucose Coronavirus (PCR) 04/19/21 04/19/21 04/19/21 11:38 16:25 22:04 WBC MCV MCH MCHC RDW Lymph % (Auto) [place] % (Auto) Eos % (Auto) Lymph # (Auto) [place] # (Auto) Eos # (Auto) Baso # (Auto) Seg Neutrophils % Seg Neuts % (Manual) Lymphocytes % (Manual) Seg Neutrophils # Seg Neutrophils # Man Lymphocytes # (Manual) D-Dimer ABG pH POC ABG pCO2 POC ABG pO2 ABG pO2 ABG HCO3 ABG O2 Saturation ABG Base Excess ABG Oxyhemoglobin ABG Sodium ABG Chloride ABG Glucose Oxyhemoglobin Carboxyhemoglobin Sodium Potassium Chloride Carbon Dioxide BUN Creatinine Glucose POC Glucose 224 H 297 H 251 H Hemoglobin A1c Magnesium Ferritin AST ALT Alkaline Phosphatase Lactate Dehydrogenase C-Reactive Protein Total Protein Albumin Arterial Blood Glucose Coronavirus (PCR) 04/20/21 04/20/21 04/20/21 05:28 08:43 16:21 WBC MCV MCH MCHC RDW Lymph % (Auto) [place] % (Auto) Eos % (Auto) Lymph # (Auto) [place] # (Auto) Eos # (Auto) Baso # (Auto) Seg Neutrophils % Seg Neuts % (Manual) Lymphocytes % (Manual) Seg Neutrophils # Seg Neutrophils # Man Lymphocytes # (Manual) D-Dimer ABG pH POC ABG pCO2 POC ABG pO2 ABG pO2 ABG HCO3 ABG O2 Saturation ABG Base Excess ABG Oxyhemoglobin ABG Sodium ABG Chloride ABG Glucose Oxyhemoglobin Carboxyhemoglobin Sodium Potassium Chloride Carbon Dioxide BUN 27 H Creatinine Glucose 192 H POC Glucose 173 H 253 H Hemoglobin A1c Magnesium Ferritin AST ALT Alkaline Phosphatase Lactate Dehydrogenase C-Reactive Protein Total Protein Albumin 3.0 L Arterial Blood Glucose Coronavirus (PCR) 04/21/21 04/21/21 04/21/21 07:58 12:05 16:08 WBC MCV MCH MCHC RDW Lymph % (Auto) [place] % (Auto) Eos % (Auto) Lymph # (Auto) [place] # (Auto) Eos # (Auto) Baso # (Auto) Seg Neutrophils % Seg Neuts % (Manual) Lymphocytes % (Manual) Seg Neutrophils # Seg Neutrophils # Man Lymphocytes # (Manual) D-Dimer ABG pH POC ABG pCO2 POC ABG pO2 ABG pO2 ABG HCO3 ABG O2 Saturation ABG Base Excess ABG Oxyhemoglobin ABG Sodium ABG Chloride ABG Glucose Oxyhemoglobin Carboxyhemoglobin Sodium Potassium Chloride Carbon Dioxide BUN Creatinine Glucose POC Glucose 140 H 252 H 214 H Hemoglobin A1c Magnesium Ferritin AST ALT Alkaline Phosphatase Lactate Dehydrogenase C-Reactive Protein Total Protein Albumin Arterial Blood Glucose Coronavirus (PCR) 04/21/21 04/22/21 04/22/21 21:42 08:37 12:01 WBC MCV MCH MCHC RDW Lymph % (Auto) [place] % (Auto) Eos % (Auto) Lymph # (Auto) [place] # (Auto) Eos # (Auto) Baso # (Auto) Seg Neutrophils % Seg Neuts % (Manual) Lymphocytes % (Manual) Seg Neutrophils # Seg Neutrophils # Man Lymphocytes # (Manual) D-Dimer ABG pH 7.457 H POC ABG pCO2 POC ABG pO2 49.4 L ABG pO2 ABG HCO3 ABG O2 Saturation ABG Base Excess ABG Oxyhemoglobin 85.6 L ABG Sodium ABG Chloride ABG Glucose 121 H Oxyhemoglobin Carboxyhemoglobin 0.3 L Sodium Potassium Chloride Carbon Dioxide BUN Creatinine Glucose POC Glucose 162 H 227 H Hemoglobin A1c Magnesium Ferritin AST ALT Alkaline Phosphatase Lactate Dehydrogenase C-Reactive Protein Total Protein Albumin Arterial Blood Glucose 121 H Coronavirus (PCR) 04/22/21 04/22/21 04/23/21 16:26 22:23 04:52 WBC MCV MCH MCHC RDW 15.7 H Lymph % (Auto) [place] % (Auto) Eos % (Auto) Lymph # (Auto) [place] # (Auto) Eos # (Auto) Baso # (Auto) Seg Neutrophils % Seg Neuts % (Manual) Lymphocytes % (Manual) Seg Neutrophils # Seg Neutrophils # Man Lymphocytes # (Manual) D-Dimer ABG pH POC ABG pCO2 POC ABG pO2 ABG pO2 ABG HCO3 ABG O2 Saturation ABG Base Excess ABG Oxyhemoglobin ABG Sodium ABG Chloride ABG Glucose Oxyhemoglobin Carboxyhemoglobin Sodium Potassium Chloride Carbon Dioxide BUN Creatinine Glucose POC Glucose 200 H 136 H Hemoglobin A1c Magnesium Ferritin AST ALT Alkaline Phosphatase Lactate Dehydrogenase C-Reactive Protein Total Protein Albumin Arterial Blood Glucose Coronavirus (PCR) 04/23/21 04/23/21 04/23/21 04:52 12:06 17:41 WBC MCV MCH MCHC RDW Lymph % (Auto) [place] % (Auto) Eos % (Auto) Lymph # (Auto) [place] # (Auto) Eos # (Auto) Baso # (Auto) Seg Neutrophils % Seg Neuts % (Manual) Lymphocytes % (Manual) Seg Neutrophils # Seg Neutrophils # Man Lymphocytes # (Manual) D-Dimer ABG pH POC ABG pCO2 POC ABG pO2 ABG pO2 ABG HCO3 ABG O2 Saturation ABG Base Excess ABG Oxyhemoglobin ABG Sodium ABG Chloride ABG Glucose Oxyhemoglobin Carboxyhemoglobin Sodium 136 L Potassium Chloride 97.7 L Carbon Dioxide BUN 23 H Creatinine Glucose 101 H POC Glucose 202 H 169 H Hemoglobin A1c Magnesium Ferritin AST 46 H ALT Alkaline Phosphatase Lactate Dehydrogenase C-Reactive Protein Total Protein Albumin 3.3 L Arterial Blood Glucose Coronavirus (PCR) 04/23/21 04/24/21 04/24/21 23:08 05:17 08:38 WBC MCV MCH MCHC RDW Lymph % (Auto) [place] % (Auto) Eos % (Auto) Lymph # (Auto) [place] # (Auto) Eos # (Auto) Baso # (Auto) Seg Neutrophils % Seg Neuts % (Manual) Lymphocytes % (Manual) Seg Neutrophils # Seg Neutrophils # Man Lymphocytes # (Manual) D-Dimer ABG pH POC ABG pCO2 POC ABG pO2 ABG pO2 ABG HCO3 ABG O2 Saturation ABG Base Excess ABG Oxyhemoglobin ABG Sodium ABG Chloride ABG Glucose Oxyhemoglobin Carboxyhemoglobin Sodium Potassium Chloride Carbon Dioxide BUN Creatinine Glucose POC Glucose 111 H 108 H 126 H Hemoglobin A1c Magnesium Ferritin AST ALT Alkaline Phosphatase Lactate Dehydrogenase C-Reactive Protein Total Protein Albumin Arterial Blood Glucose Coronavirus (PCR) 04/24/21 04/24/21 04/24/21 11:54 17:57 21:23 WBC MCV MCH MCHC RDW Lymph % (Auto) [place] % (Auto) Eos % (Auto) Lymph # (Auto) [place] # (Auto) Eos # (Auto) Baso # (Auto) Seg Neutrophils % Seg Neuts % (Manual) Lymphocytes % (Manual) Seg Neutrophils # Seg Neutrophils # Man Lymphocytes # (Manual) D-Dimer ABG pH POC ABG pCO2 POC ABG pO2 ABG pO2 ABG HCO3 ABG O2 Saturation ABG Base Excess ABG Oxyhemoglobin ABG Sodium ABG Chloride ABG Glucose Oxyhemoglobin Carboxyhemoglobin Sodium Potassium Chloride Carbon Dioxide BUN Creatinine Glucose POC Glucose 147 H 177 H 138 H Hemoglobin A1c Magnesium Ferritin AST ALT Alkaline Phosphatase Lactate Dehydrogenase C-Reactive Protein Total Protein Albumin Arterial Blood Glucose Coronavirus (PCR) 04/25/21 04/25/21 04/25/21 07:06 11:23 15:43 WBC MCV MCH MCHC RDW Lymph % (Auto) [place] % (Auto) Eos % (Auto) Lymph # (Auto) [place] # (Auto) Eos # (Auto) Baso # (Auto) Seg Neutrophils % Seg Neuts % (Manual) Lymphocytes % (Manual) Seg Neutrophils # Seg Neutrophils # Man Lymphocytes # (Manual) D-Dimer ABG pH POC ABG pCO2 POC ABG pO2 ABG pO2 ABG HCO3 ABG O2 Saturation ABG Base Excess ABG Oxyhemoglobin ABG Sodium ABG Chloride ABG Glucose Oxyhemoglobin Carboxyhemoglobin Sodium Potassium Chloride Carbon Dioxide BUN Creatinine Glucose POC Glucose 147 H 169 H 227 H Hemoglobin A1c Magnesium Ferritin AST ALT Alkaline Phosphatase Lactate Dehydrogenase C-Reactive Protein Total Protein Albumin Arterial Blood Glucose Coronavirus (PCR) 04/25/21 04/26/21 04/26/21 21:22 02:45 05:15 WBC MCV MCH MCHC RDW Lymph % (Auto) [place] % (Auto) Eos % (Auto) Lymph # (Auto) [place] # (Auto) Eos # (Auto) Baso # (Auto) Seg Neutrophils % Seg Neuts % (Manual) Lymphocytes % (Manual) Seg Neutrophils # Seg Neutrophils # Man Lymphocytes # (Manual) D-Dimer ABG pH POC ABG pCO2 POC ABG pO2 70.7 L ABG pO2 ABG HCO3 ABG O2 Saturation ABG Base Excess ABG Oxyhemoglobin 93.0 L ABG Sodium 132.7 L ABG Chloride ABG Glucose 115 H Oxyhemoglobin Carboxyhemoglobin Sodium Potassium Chloride 95.8 L Carbon Dioxide 32 H BUN 20 H Creatinine Glucose 102 H POC Glucose 196 H Hemoglobin A1c Magnesium Ferritin AST ALT Alkaline Phosphatase Lactate Dehydrogenase C-Reactive Protein Total Protein Albumin Arterial Blood Glucose 115 H Coronavirus (PCR) 04/26/21 04/26/21 04/26/21 11:49 16:09 21:07 WBC MCV MCH MCHC RDW Lymph % (Auto) [place] % (Auto) Eos % (Auto) Lymph # (Auto) [place] # (Auto) Eos # (Auto) Baso # (Auto) Seg Neutrophils % Seg Neuts % (Manual) Lymphocytes % (Manual) Seg Neutrophils # Seg Neutrophils # Man Lymphocytes # (Manual) D-Dimer ABG pH POC ABG pCO2 POC ABG pO2 ABG pO2 ABG HCO3 ABG O2 Saturation ABG Base Excess ABG Oxyhemoglobin ABG Sodium ABG Chloride ABG Glucose Oxyhemoglobin Carboxyhemoglobin Sodium Potassium Chloride Carbon Dioxide BUN Creatinine Glucose POC Glucose 114 H 188 H 136 H Hemoglobin A1c Magnesium Ferritin AST ALT Alkaline Phosphatase Lactate Dehydrogenase C-Reactive Protein Total Protein Albumin Arterial Blood Glucose Coronavirus (PCR) 04/27/21 04/27/21 04/28/21 17:34 22:12 08:26 WBC MCV MCH MCHC RDW Lymph % (Auto) [place] % (Auto) Eos % (Auto) Lymph # (Auto) [place] # (Auto) Eos # (Auto) Baso # (Auto) Seg Neutrophils % Seg Neuts % (Manual) Lymphocytes % (Manual) Seg Neutrophils # Seg Neutrophils # Man Lymphocytes # (Manual) D-Dimer ABG pH POC ABG pCO2 POC ABG pO2 ABG pO2 ABG HCO3 ABG O2 Saturation ABG Base Excess ABG Oxyhemoglobin ABG Sodium ABG Chloride ABG Glucose Oxyhemoglobin Carboxyhemoglobin Sodium Potassium Chloride Carbon Dioxide BUN Creatinine Glucose POC Glucose 128 H 159 H 69 L Hemoglobin A1c Magnesium Ferritin AST ALT Alkaline Phosphatase Lactate Dehydrogenase C-Reactive Protein Total Protein Albumin Arterial Blood Glucose Coronavirus (PCR) 04/28/21 04/28/21 04/29/21 12:22 21:11 06:05 WBC MCV MCH MCHC RDW Lymph % (Auto) [place] % (Auto) Eos % (Auto) Lymph # (Auto) [place] # (Auto) Eos # (Auto) Baso # (Auto) Seg Neutrophils % Seg Neuts % (Manual) Lymphocytes % (Manual) Seg Neutrophils # Seg Neutrophils # Man Lymphocytes # (Manual) D-Dimer ABG pH POC ABG pCO2 POC ABG pO2 ABG pO2 ABG HCO3 ABG O2 Saturation ABG Base Excess ABG Oxyhemoglobin ABG Sodium ABG Chloride ABG Glucose Oxyhemoglobin Carboxyhemoglobin Sodium 132 L Potassium Chloride 94.4 L Carbon Dioxide BUN Creatinine 0.2 L D Glucose 140 H POC Glucose 141 H 171 H Hemoglobin A1c Magnesium Ferritin AST ALT Alkaline Phosphatase Lactate Dehydrogenase C-Reactive Protein Total Protein Albumin Arterial Blood Glucose Coronavirus (PCR) 04/29/21 04/29/21 04/29/21 06:05 07:24 11:36 WBC MCV MCH MCHC 35 H RDW 15.9 H Lymph % (Auto) [place] % (Auto) Eos % (Auto) Lymph # (Auto) [place] # (Auto) Eos # (Auto) Baso # (Auto) Seg Neutrophils % Seg Neuts % (Manual) Lymphocytes % (Manual) Seg Neutrophils # Seg Neutrophils # Man Lymphocytes # (Manual) D-Dimer ABG pH POC ABG pCO2 POC ABG pO2 ABG pO2 ABG HCO3 ABG O2 Saturation ABG Base Excess ABG Oxyhemoglobin ABG Sodium ABG Chloride ABG Glucose Oxyhemoglobin Carboxyhemoglobin Sodium Potassium Chloride Carbon Dioxide BUN Creatinine Glucose POC Glucose 141 H 220 H Hemoglobin A1c Magnesium Ferritin AST ALT Alkaline Phosphatase Lactate Dehydrogenase C-Reactive Protein Total Protein Albumin Arterial Blood Glucose Coronavirus (PCR) 04/29/21 04/29/21 04/29/21 14:23 15:30 17:06 WBC MCV MCH MCHC RDW Lymph % (Auto) [place] % (Auto) Eos % (Auto) Lymph # (Auto) [place] # (Auto) Eos # (Auto) Baso # (Auto) Seg Neutrophils % Seg Neuts % (Manual) Lymphocytes % (Manual) Seg Neutrophils # Seg Neutrophils # Man Lymphocytes # (Manual) D-Dimer ABG pH POC ABG pCO2 POC ABG pO2 ABG pO2 52.6 L ABG HCO3 ABG O2 Saturation 86.4 L ABG Base Excess ABG Oxyhemoglobin ABG Sodium ABG Chloride ABG Glucose Oxyhemoglobin 84.6 L Carboxyhemoglobin Sodium Potassium Chloride Carbon Dioxide BUN Creatinine Glucose POC Glucose 173 H 158 H Hemoglobin A1c Magnesium Ferritin AST ALT Alkaline Phosphatase Lactate Dehydrogenase C-Reactive Protein Total Protein Albumin Arterial Blood Glucose Coronavirus (PCR) 04/29/21 04/30/21 04/30/21 21:27 07:16 08:00 WBC MCV MCH MCHC RDW 16.1 H Lymph % (Auto) [place] % (Auto) Eos % (Auto) Lymph # (Auto) [place] # (Auto) Eos # (Auto) Baso # (Auto) Seg Neutrophils % Seg Neuts % (Manual) Lymphocytes % (Manual) Seg Neutrophils # Seg Neutrophils # Man Lymphocytes # (Manual) D-Dimer ABG pH POC ABG pCO2 POC ABG pO2 ABG pO2 ABG HCO3 ABG O2 Saturation ABG Base Excess ABG Oxyhemoglobin ABG Sodium ABG Chloride ABG Glucose Oxyhemoglobin Carboxyhemoglobin Sodium Potassium Chloride Carbon Dioxide BUN Creatinine Glucose POC Glucose 244 H 175 H Hemoglobin A1c Magnesium Ferritin AST ALT Alkaline Phosphatase Lactate Dehydrogenase C-Reactive Protein Total Protein Albumin Arterial Blood Glucose Coronavirus (PCR) 04/30/21 04/30/21 04/30/21 08:00 08:00 11:03 WBC MCV MCH MCHC RDW Lymph % (Auto) [place] % (Auto) Eos % (Auto) Lymph # (Auto) [place] # (Auto) Eos # (Auto) Baso # (Auto) Seg Neutrophils % Seg Neuts % (Manual) Lymphocytes % (Manual) Seg Neutrophils # Seg Neutrophils # Man Lymphocytes # (Manual) D-Dimer 1796.87 H ABG pH POC ABG pCO2 POC ABG pO2 ABG pO2 ABG HCO3 ABG O2 Saturation ABG Base Excess ABG Oxyhemoglobin ABG Sodium ABG Chloride ABG Glucose Oxyhemoglobin Carboxyhemoglobin Sodium 135 L Potassium Chloride 96.3 L Carbon Dioxide BUN Creatinine 0.2 L Glucose 153 H POC Glucose 183 H Hemoglobin A1c Magnesium Ferritin AST 41 H ALT 76 H Alkaline Phosphatase 160 H Lactate Dehydrogenase 522 H C-Reactive Protein Total Protein 6.1 L Albumin 3.1 L Arterial Blood Glucose Coronavirus (PCR) 04/30/21 04/30/21 05/01/21 17:04 22:17 05:39 WBC MCV MCH MCHC RDW Lymph % (Auto) [place] % (Auto) Eos % (Auto) Lymph # (Auto) [place] # (Auto) Eos # (Auto) Baso # (Auto) Seg Neutrophils % Seg Neuts % (Manual) Lymphocytes % (Manual) Seg Neutrophils # Seg Neutrophils # Man Lymphocytes # (Manual) D-Dimer ABG pH POC ABG pCO2 POC ABG pO2 ABG pO2 ABG HCO3 ABG O2 Saturation ABG Base Excess ABG Oxyhemoglobin ABG Sodium ABG Chloride ABG Glucose Oxyhemoglobin Carboxyhemoglobin Sodium 133 L Potassium Chloride 92.1 L Carbon Dioxide BUN 24 H Creatinine 0.4 L D Glucose 269 H POC Glucose 167 H 208 H Hemoglobin A1c Magnesium Ferritin AST ALT 66 H Alkaline Phosphatase 142 H Lactate Dehydrogenase C-Reactive Protein Total Protein Albumin 3.2 L Arterial Blood Glucose Coronavirus (PCR) 05/01/21 05/01/21 05/01/21 05:39 05:39 07:45 WBC MCV MCH MCHC RDW 16.0 H Lymph % (Auto) [place] % (Auto) Eos % (Auto) Lymph # (Auto) [place] # (Auto) Eos # (Auto) Baso # (Auto) Seg Neutrophils % Seg Neuts % (Manual) Lymphocytes % (Manual) Seg Neutrophils # Seg Neutrophils # Man Lymphocytes # (Manual) D-Dimer 3984.95 H ABG pH POC ABG pCO2 POC ABG pO2 ABG pO2 ABG HCO3 ABG O2 Saturation ABG Base Excess ABG Oxyhemoglobin ABG Sodium ABG Chloride ABG Glucose Oxyhemoglobin Carboxyhemoglobin Sodium Potassium Chloride Carbon Dioxide BUN Creatinine Glucose POC Glucose 229 H Hemoglobin A1c Magnesium Ferritin AST ALT Alkaline Phosphatase Lactate Dehydrogenase C-Reactive Protein Total Protein Albumin Arterial Blood Glucose Coronavirus (PCR) 05/01/21 05/01/21 05/01/21 12:10 15:46 21:06 WBC MCV MCH MCHC RDW Lymph % (Auto) [place] % (Auto) Eos % (Auto) Lymph # (Auto) [place] # (Auto) Eos # (Auto) Baso # (Auto) Seg Neutrophils % Seg Neuts % (Manual) Lymphocytes % (Manual) Seg Neutrophils # Seg Neutrophils # Man Lymphocytes # (Manual) D-Dimer ABG pH POC ABG pCO2 POC ABG pO2 ABG pO2 ABG HCO3 ABG O2 Saturation ABG Base Excess ABG Oxyhemoglobin ABG Sodium ABG Chloride ABG Glucose Oxyhemoglobin Carboxyhemoglobin Sodium Potassium Chloride Carbon Dioxide BUN Creatinine Glucose POC Glucose 296 H 279 H 232 H Hemoglobin A1c Magnesium Ferritin AST ALT Alkaline Phosphatase Lactate Dehydrogenase C-Reactive Protein Total Protein Albumin Arterial Blood Glucose Coronavirus (PCR) 05/02/21 05/02/21 05/02/21 04:55 04:55 04:55 WBC MCV MCH MCHC RDW 16.1 H Lymph % (Auto) [place] % (Auto) Eos % (Auto) Lymph # (Auto) [place] # (Auto) Eos # (Auto) Baso # (Auto) Seg Neutrophils % Seg Neuts % (Manual) Lymphocytes % (Manual) Seg Neutrophils # Seg Neutrophils # Man Lymphocytes # (Manual) D-Dimer 1401.08 H ABG pH POC ABG pCO2 POC ABG pO2 ABG pO2 ABG HCO3 ABG O2 Saturation ABG Base Excess ABG Oxyhemoglobin ABG Sodium ABG Chloride ABG Glucose Oxyhemoglobin Carboxyhemoglobin Sodium 131 L Potassium Chloride 95.5 L Carbon Dioxide BUN 20 H Creatinine 0.3 L Glucose 288 H POC Glucose Hemoglobin A1c Magnesium Ferritin AST ALT Alkaline Phosphatase Lactate Dehydrogenase C-Reactive Protein Total Protein 6.0 L Albumin 3.1 L Arterial Blood Glucose Coronavirus (PCR) 05/02/21 05/02/21 05/02/21 07:53 11:45 15:25 WBC MCV MCH MCHC RDW Lymph % (Auto) [place] % (Auto) Eos % (Auto) Lymph # (Auto) [place] # (Auto) Eos # (Auto) Baso # (Auto) Seg Neutrophils % Seg Neuts % (Manual) Lymphocytes % (Manual) Seg Neutrophils # Seg Neutrophils # Man Lymphocytes # (Manual) D-Dimer ABG pH POC ABG pCO2 POC ABG pO2 ABG pO2 ABG HCO3 ABG O2 Saturation ABG Base Excess ABG Oxyhemoglobin ABG Sodium ABG Chloride ABG Glucose Oxyhemoglobin Carboxyhemoglobin Sodium Potassium Chloride Carbon Dioxide BUN Creatinine Glucose POC Glucose 180 H 228 H 275 H Hemoglobin A1c Magnesium Ferritin AST ALT Alkaline Phosphatase Lactate Dehydrogenase C-Reactive Protein Total Protein Albumin Arterial Blood Glucose Coronavirus (PCR) 05/02/21 05/03/21 05/03/21 22:56 04:30 04:49 WBC MCV MCH MCHC RDW Lymph % (Auto) [place] % (Auto) Eos % (Auto) Lymph # (Auto) [place] # (Auto) Eos # (Auto) Baso # (Auto) Seg Neutrophils % Seg Neuts % (Manual) Lymphocytes % (Manual) Seg Neutrophils # Seg Neutrophils # Man Lymphocytes # (Manual) D-Dimer ABG pH 7.229 L POC ABG pCO2 POC ABG pO2 65.3 L ABG pO2 ABG HCO3 ABG O2 Saturation ABG Base Excess ABG Oxyhemoglobin 87.8 L ABG Sodium 133.0 L ABG Chloride 97.0 L ABG Glucose 403 H Oxyhemoglobin Carboxyhemoglobin Sodium 130 L Potassium Chloride 94.9 L Carbon Dioxide BUN 20 H Creatinine 0.5 L D Glucose 359 H POC Glucose 293 H Hemoglobin A1c Magnesium Ferritin AST 54 H ALT 75 H Alkaline Phosphatase 138 H Lactate Dehydrogenase C-Reactive Protein Total Protein Albumin 3.6 L Arterial Blood Glucose 403 H Coronavirus (PCR) 05/03/21 05/03/21 05/03/21 05:27 11:26 17:57 WBC MCV MCH MCHC RDW Lymph % (Auto) [place] % (Auto) Eos % (Auto) Lymph # (Auto) [place] # (Auto) Eos # (Auto) Baso # (Auto) Seg Neutrophils % Seg Neuts % (Manual) Lymphocytes % (Manual) Seg Neutrophils # Seg Neutrophils # Man Lymphocytes # (Manual) D-Dimer ABG pH POC ABG pCO2 POC ABG pO2 ABG pO2 ABG HCO3 ABG O2 Saturation ABG Base Excess ABG Oxyhemoglobin ABG Sodium ABG Chloride ABG Glucose Oxyhemoglobin Carboxyhemoglobin Sodium Potassium Chloride Carbon Dioxide BUN Creatinine Glucose POC Glucose 361 H 297 H 226 H Hemoglobin A1c Magnesium Ferritin AST ALT Alkaline Phosphatase Lactate Dehydrogenase C-Reactive Protein Total Protein Albumin Arterial Blood Glucose Coronavirus (PCR) 05/03/21 05/04/21 05/04/21 23:12 05:12 07:30 WBC MCV MCH MCHC RDW Lymph % (Auto) [place] % (Auto) Eos % (Auto) Lymph # (Auto) [place] # (Auto) Eos # (Auto) Baso # (Auto) Seg Neutrophils % Seg Neuts % (Manual) Lymphocytes % (Manual) Seg Neutrophils # Seg Neutrophils # Man Lymphocytes # (Manual) D-Dimer ABG pH POC ABG pCO2 POC ABG pO2 ABG pO2 ABG HCO3 ABG O2 Saturation ABG Base Excess ABG Oxyhemoglobin ABG Sodium ABG Chloride ABG Glucose Oxyhemoglobin Carboxyhemoglobin Sodium Potassium Chloride Carbon Dioxide BUN Creatinine Glucose POC Glucose 282 H 285 H 254 H Hemoglobin A1c Magnesium Ferritin AST ALT Alkaline Phosphatase Lactate Dehydrogenase C-Reactive Protein Total Protein Albumin Arterial Blood Glucose Coronavirus (PCR) 05/04/21 05/04/21 05/04/21 08:58 11:45 16:07 WBC MCV MCH MCHC RDW Lymph % (Auto) [place] % (Auto) Eos % (Auto) Lymph # (Auto) [place] # (Auto) Eos # (Auto) Baso # (Auto) Seg Neutrophils % Seg Neuts % (Manual) Lymphocytes % (Manual) Seg Neutrophils # Seg Neutrophils # Man Lymphocytes # (Manual) D-Dimer ABG pH POC ABG pCO2 POC ABG pO2 ABG pO2 ABG HCO3 ABG O2 Saturation ABG Base Excess ABG Oxyhemoglobin ABG Sodium ABG Chloride ABG Glucose Oxyhemoglobin Carboxyhemoglobin Sodium 134 L Potassium Chloride Carbon Dioxide BUN 20 H Creatinine 0.3 L Glucose 267 H POC Glucose 244 H 297 H Hemoglobin A1c Magnesium Ferritin AST ALT Alkaline Phosphatase Lactate Dehydrogenase C-Reactive Protein Total Protein 6.0 L Albumin 3.2 L Arterial Blood Glucose Coronavirus (PCR) 05/04/21 05/05/21 05/05/21 23:32 05:00 05:13 WBC MCV MCH MCHC RDW Lymph % (Auto) [place] % (Auto) Eos % (Auto) Lymph # (Auto) [place] # (Auto) Eos # (Auto) Baso # (Auto) Seg Neutrophils % Seg Neuts % (Manual) Lymphocytes % (Manual) Seg Neutrophils # Seg Neutrophils # Man Lymphocytes # (Manual) D-Dimer ABG pH POC ABG pCO2 POC ABG pO2 ABG pO2 ABG HCO3 ABG O2 Saturation ABG Base Excess ABG Oxyhemoglobin ABG Sodium ABG Chloride ABG Glucose Oxyhemoglobin Carboxyhemoglobin Sodium 132 L Potassium Chloride 96.4 L Carbon Dioxide BUN 22 H Creatinine 0.3 L Glucose 228 H POC Glucose 154 H 260 H Hemoglobin A1c Magnesium Ferritin AST ALT 67 H Alkaline Phosphatase Lactate Dehydrogenase C-Reactive Protein Total Protein 6.1 L Albumin 3.2 L Arterial Blood Glucose Coronavirus (PCR) 05/05/21 05/05/21 05/05/21 11:32 17:49 23:07 WBC MCV MCH MCHC RDW Lymph % (Auto) [place] % (Auto) Eos % (Auto) Lymph # (Auto) [place] # (Auto) Eos # (Auto) Baso # (Auto) Seg Neutrophils % Seg Neuts % (Manual) Lymphocytes % (Manual) Seg Neutrophils # Seg Neutrophils # Man Lymphocytes # (Manual) D-Dimer ABG pH POC ABG pCO2 POC ABG pO2 ABG pO2 ABG HCO3 ABG O2 Saturation ABG Base Excess ABG Oxyhemoglobin ABG Sodium ABG Chloride ABG Glucose Oxyhemoglobin Carboxyhemoglobin Sodium Potassium Chloride Carbon Dioxide BUN Creatinine Glucose POC Glucose 279 H 308 H 213 H Hemoglobin A1c Magnesium Ferritin AST ALT Alkaline Phosphatase Lactate Dehydrogenase C-Reactive Protein Total Protein Albumin Arterial Blood Glucose Coronavirus (PCR) 05/06/21 05/06/21 05/06/21 05:00 05:00 05:20 WBC MCV MCH MCHC RDW 16.8 H Lymph % (Auto) [place] % (Auto) Eos % (Auto) Lymph # (Auto) [place] # (Auto) Eos # (Auto) Baso # (Auto) Seg Neutrophils % Seg Neuts % (Manual) 99.0 H Lymphocytes % (Manual) Seg Neutrophils # Seg Neutrophils # Man 10.9 H Lymphocytes # (Manual) 0.0 L D-Dimer ABG pH POC ABG pCO2 POC ABG pO2 ABG pO2 ABG HCO3 ABG O2 Saturation ABG Base Excess ABG Oxyhemoglobin ABG Sodium ABG Chloride ABG Glucose Oxyhemoglobin Carboxyhemoglobin Sodium 133 L Potassium Chloride Carbon Dioxide BUN 21 H Creatinine 0.3 L Glucose 259 H POC Glucose 308 H Hemoglobin A1c Magnesium Ferritin AST ALT Alkaline Phosphatase Lactate Dehydrogenase C-Reactive Protein Total Protein Albumin 3.2 L Arterial Blood Glucose Coronavirus (PCR) 05/06/21 05/06/21 05/06/21 11:24 17:54 21:32 WBC MCV MCH MCHC RDW Lymph % (Auto) [place] % (Auto) Eos % (Auto) Lymph # (Auto) [place] # (Auto) Eos # (Auto) Baso # (Auto) Seg Neutrophils % Seg Neuts % (Manual) Lymphocytes % (Manual) Seg Neutrophils # Seg Neutrophils # Man Lymphocytes # (Manual) D-Dimer ABG pH POC ABG pCO2 POC ABG pO2 ABG pO2 ABG HCO3 ABG O2 Saturation ABG Base Excess ABG Oxyhemoglobin ABG Sodium ABG Chloride ABG Glucose Oxyhemoglobin Carboxyhemoglobin Sodium Potassium Chloride Carbon Dioxide BUN Creatinine Glucose POC Glucose 262 H 124 H 246 H Hemoglobin A1c Magnesium Ferritin AST ALT Alkaline Phosphatase Lactate Dehydrogenase C-Reactive Protein Total Protein Albumin Arterial Blood Glucose Coronavirus (PCR) 05/06/21 05/07/21 05/07/21 23:10 04:54 04:54 WBC MCV MCH MCHC RDW Lymph % (Auto) [place] % (Auto) Eos % (Auto) Lymph # (Auto) [place] # (Auto) Eos # (Auto) Baso # (Auto) Seg Neutrophils % Seg Neuts % (Manual) Lymphocytes % (Manual) Seg Neutrophils # Seg Neutrophils # Man Lymphocytes # (Manual) D-Dimer 1609.28 H ABG pH POC ABG pCO2 POC ABG pO2 ABG pO2 ABG HCO3 ABG O2 Saturation ABG Base Excess ABG Oxyhemoglobin ABG Sodium ABG Chloride ABG Glucose Oxyhemoglobin Carboxyhemoglobin Sodium 136 L Potassium Chloride Carbon Dioxide BUN 23 H Creatinine 0.3 L Glucose 110 H POC Glucose 249 H Hemoglobin A1c Magnesium Ferritin AST ALT Alkaline Phosphatase Lactate Dehydrogenase C-Reactive Protein Total Protein 6.2 L Albumin 3.0 L Arterial Blood Glucose Coronavirus (PCR) 05/07/21 05/07/21 05/07/21 04:54 04:54 11:41 WBC MCV MCH MCHC RDW Lymph % (Auto) [place] % (Auto) Eos % (Auto) Lymph # (Auto) [place] # (Auto) Eos # (Auto) Baso # (Auto) Seg Neutrophils % Seg Neuts % (Manual) Lymphocytes % (Manual) Seg Neutrophils # Seg Neutrophils # Man Lymphocytes # (Manual) D-Dimer ABG pH POC ABG pCO2 POC ABG pO2 ABG pO2 ABG HCO3 ABG O2 Saturation ABG Base Excess ABG Oxyhemoglobin ABG Sodium ABG Chloride ABG Glucose Oxyhemoglobin Carboxyhemoglobin Sodium Potassium Chloride Carbon Dioxide BUN Creatinine Glucose POC Glucose 118 H Hemoglobin A1c Magnesium Ferritin 296.1 H AST ALT Alkaline Phosphatase Lactate Dehydrogenase 724 H C-Reactive Protein Total Protein Albumin Arterial Blood Glucose Coronavirus (PCR) 05/07/21 05/07/21 05/08/21 16:43 22:34 06:44 WBC MCV MCH MCHC RDW Lymph % (Auto) [place] % (Auto) Eos % (Auto) Lymph # (Auto) [place] # (Auto) Eos # (Auto) Baso # (Auto) Seg Neutrophils % Seg Neuts % (Manual) Lymphocytes % (Manual) Seg Neutrophils # Seg Neutrophils # Man Lymphocytes # (Manual) D-Dimer ABG pH POC ABG pCO2 POC ABG pO2 ABG pO2 ABG HCO3 ABG O2 Saturation ABG Base Excess ABG Oxyhemoglobin ABG Sodium ABG Chloride ABG Glucose Oxyhemoglobin Carboxyhemoglobin Sodium Potassium Chloride Carbon Dioxide BUN Creatinine Glucose POC Glucose 159 H 233 H 235 H Hemoglobin A1c Magnesium Ferritin AST ALT Alkaline Phosphatase Lactate Dehydrogenase C-Reactive Protein Total Protein Albumin Arterial Blood Glucose Coronavirus (PCR) 0805/08/21 05/08/21 07:49 11:56 17:13 WBC MCV MCH MCHC RDW Lymph % (Auto) [place] % (Auto) Eos % (Auto) Lymph # (Auto) [place] # (Auto) Eos # (Auto) Baso # (Auto) Seg Neutrophils % Seg Neuts % (Manual) Lymphocytes % (Manual) Seg Neutrophils # Seg Neutrophils # Man Lymphocytes # (Manual) D-Dimer ABG pH POC ABG pCO2 POC ABG pO2 ABG pO2 ABG HCO3 ABG O2 Saturation ABG Base Excess ABG Oxyhemoglobin ABG Sodium ABG Chloride ABG Glucose Oxyhemoglobin Carboxyhemoglobin Sodium Potassium Chloride Carbon Dioxide BUN Creatinine Glucose POC Glucose 219 H 184 H 182 H Hemoglobin A1c Magnesium Ferritin AST ALT Alkaline Phosphatase Lactate Dehydrogenase C-Reactive Protein Total Protein Albumin Arterial Blood Glucose Coronavirus (PCR) 05/08/21 05/09/21 05/09/21 23:35 05:20 05:20 WBC MCV MCH MCHC RDW Lymph % (Auto) [place] % (Auto) Eos % (Auto) Lymph # (Auto) [place] # (Auto) Eos # (Auto) Baso # (Auto) Seg Neutrophils % Seg Neuts % (Manual) Lymphocytes % (Manual) Seg Neutrophils # Seg Neutrophils # Man Lymphocytes # (Manual) D-Dimer 1003.87 H ABG pH POC ABG pCO2 POC ABG pO2 ABG pO2 ABG HCO3 ABG O2 Saturation ABG Base Excess ABG Oxyhemoglobin ABG Sodium ABG Chloride ABG Glucose Oxyhemoglobin Carboxyhemoglobin Sodium Potassium Chloride Carbon Dioxide BUN Creatinine Glucose POC Glucose 198 H Hemoglobin A1c Magnesium Ferritin 378.7 H AST ALT Alkaline Phosphatase Lactate Dehydrogenase C-Reactive Protein Total Protein Albumin Arterial Blood Glucose Coronavirus (PCR) 05/09/21 05/09/21 05/09/21 05:20 06:04 12:53 WBC MCV MCH MCHC RDW Lymph % (Auto) [place] % (Auto) Eos % (Auto) Lymph # (Auto) [place] # (Auto) Eos # (Auto) Baso # (Auto) Seg Neutrophils % Seg Neuts % (Manual) Lymphocytes % (Manual) Seg Neutrophils # Seg Neutrophils # Man Lymphocytes # (Manual) D-Dimer ABG pH POC ABG pCO2 POC ABG pO2 ABG pO2 ABG HCO3 ABG O2 Saturation ABG Base Excess ABG Oxyhemoglobin ABG Sodium ABG Chloride ABG Glucose Oxyhemoglobin Carboxyhemoglobin Sodium Potassium Chloride Carbon Dioxide BUN Creatinine Glucose POC Glucose 159 H 180 H Hemoglobin A1c Magnesium Ferritin AST ALT Alkaline Phosphatase Lactate Dehydrogenase 558 H C-Reactive Protein 2.40 H Total Protein Albumin Arterial Blood Glucose Coronavirus (PCR) 05/09/21 05/09/21 05/10/21 16:43 21:27 10:18 WBC MCV MCH MCHC RDW Lymph % (Auto) [place] % (Auto) Eos % (Auto) Lymph # (Auto) [place] # (Auto) Eos # (Auto) Baso # (Auto) Seg Neutrophils % Seg Neuts % (Manual) Lymphocytes % (Manual) Seg Neutrophils # Seg Neutrophils # Man Lymphocytes # (Manual) D-Dimer ABG pH POC ABG pCO2 POC ABG pO2 ABG pO2 ABG HCO3 ABG O2 Saturation ABG Base Excess ABG Oxyhemoglobin ABG Sodium ABG Chloride ABG Glucose Oxyhemoglobin Carboxyhemoglobin Sodium Potassium Chloride Carbon Dioxide BUN Creatinine Glucose POC Glucose 212 H 285 H 261 H Hemoglobin A1c Magnesium Ferritin AST ALT Alkaline Phosphatase Lactate Dehydrogenase C-Reactive Protein Total Protein Albumin Arterial Blood Glucose Coronavirus (PCR) 05/10/21 05/10/21 05/11/21 17:58 18:02 00:29 WBC MCV MCH MCHC RDW Lymph % (Auto) [place] % (Auto) Eos % (Auto) Lymph # (Auto) [place] # (Auto) Eos # (Auto) Baso # (Auto) Seg Neutrophils % Seg Neuts % (Manual) Lymphocytes % (Manual) Seg Neutrophils # Seg Neutrophils # Man Lymphocytes # (Manual) D-Dimer ABG pH POC ABG pCO2 POC ABG pO2 ABG pO2 ABG HCO3 ABG O2 Saturation ABG Base Excess ABG Oxyhemoglobin ABG Sodium ABG Chloride ABG Glucose Oxyhemoglobin Carboxyhemoglobin Sodium Potassium Chloride Carbon Dioxide BUN Creatinine Glucose POC Glucose 213 H 179 H 149 H Hemoglobin A1c Magnesium Ferritin AST ALT Alkaline Phosphatase Lactate Dehydrogenase C-Reactive Protein Total Protein Albumin Arterial Blood Glucose Coronavirus (PCR) 05/11/21 05/11/21 05/11/21 05:22 11:32 17:00 WBC 14.9 H MCV MCH MCHC RDW 18.9 H Lymph % (Auto) 4.9 L [place] % (Auto) Eos % (Auto) Lymph # (Auto) 0.7 L [place] # (Auto) Eos # (Auto) Baso # (Auto) 0.2 H Seg Neutrophils % Seg Neuts % (Manual) Lymphocytes % (Manual) Seg Neutrophils # 13.3 H Seg Neutrophils # Man Lymphocytes # (Manual) D-Dimer ABG pH POC ABG pCO2 POC ABG pO2 ABG pO2 ABG HCO3 ABG O2 Saturation ABG Base Excess ABG Oxyhemoglobin ABG Sodium ABG Chloride ABG Glucose Oxyhemoglobin Carboxyhemoglobin Sodium Potassium Chloride Carbon Dioxide BUN Creatinine Glucose POC Glucose 162 H 179 H Hemoglobin A1c Magnesium Ferritin AST ALT Alkaline Phosphatase Lactate Dehydrogenase C-Reactive Protein Total Protein Albumin Arterial Blood Glucose Coronavirus (PCR) 05/11/21 05/11/21 05/11/21 17:00 17:33 22:03 WBC MCV MCH MCHC RDW Lymph % (Auto) [place] % (Auto) Eos % (Auto) Lymph # (Auto) [place] # (Auto) Eos # (Auto) Baso # (Auto) Seg Neutrophils % Seg Neuts % (Manual) Lymphocytes % (Manual) Seg Neutrophils # Seg Neutrophils # Man Lymphocytes # (Manual) D-Dimer ABG pH POC ABG pCO2 POC ABG pO2 ABG pO2 ABG HCO3 ABG O2 Saturation ABG Base Excess ABG Oxyhemoglobin ABG Sodium ABG Chloride ABG Glucose Oxyhemoglobin Carboxyhemoglobin Sodium 135 L Potassium Chloride 97.3 L Carbon Dioxide BUN 21 H Creatinine 0.3 L Glucose 133 H POC Glucose 140 H 282 H Hemoglobin A1c Magnesium Ferritin AST ALT 60 H Alkaline Phosphatase Lactate Dehydrogenase C-Reactive Protein Total Protein Albumin 3.1 L Arterial Blood Glucose Coronavirus (PCR) 05/12/21 05/12/21 05/12/21 04:05 04:05 04:05 WBC MCV MCH MCHC RDW 18.4 H Lymph % (Auto) [place] % (Auto) Eos % (Auto) Lymph # (Auto) [place] # (Auto) Eos # (Auto) Baso # (Auto) Seg Neutrophils % Seg Neuts % (Manual) 94.0 H Lymphocytes % (Manual) 4.0 L Seg Neutrophils # Seg Neutrophils # Man Lymphocytes # (Manual) 0.3 L D-Dimer ABG pH POC ABG pCO2 POC ABG pO2 ABG pO2 ABG HCO3 ABG O2 Saturation ABG Base Excess ABG Oxyhemoglobin ABG Sodium ABG Chloride ABG Glucose Oxyhemoglobin Carboxyhemoglobin Sodium 136 L Potassium Chloride Carbon Dioxide BUN 18 H Creatinine 0.2 L Glucose 142 H POC Glucose Hemoglobin A1c Magnesium Ferritin 350.7 H AST ALT Alkaline Phosphatase Lactate Dehydrogenase 546 H C-Reactive Protein Total Protein 6.1 L Albumin 3.0 L Arterial Blood Glucose Coronavirus (PCR) 05/12/21 05/12/21 05/12/21 05:11 11:17 16:27 WBC MCV MCH MCHC RDW Lymph % (Auto) [place] % (Auto) Eos % (Auto) Lymph # (Auto) [place] # (Auto) Eos # (Auto) Baso # (Auto) Seg Neutrophils % Seg Neuts % (Manual) Lymphocytes % (Manual) Seg Neutrophils # Seg Neutrophils # Man Lymphocytes # (Manual) D-Dimer ABG pH POC ABG pCO2 POC ABG pO2 ABG pO2 ABG HCO3 ABG O2 Saturation ABG Base Excess ABG Oxyhemoglobin ABG Sodium ABG Chloride ABG Glucose Oxyhemoglobin Carboxyhemoglobin Sodium Potassium Chloride Carbon Dioxide BUN Creatinine Glucose POC Glucose 152 H 190 H 261 H Hemoglobin A1c Magnesium Ferritin AST ALT Alkaline Phosphatase Lactate Dehydrogenase C-Reactive Protein Total Protein Albumin Arterial Blood Glucose Coronavirus (PCR) 05/12/21 05/13/21 05/13/21 20:55 11:08 21:41 WBC MCV MCH MCHC RDW Lymph % (Auto) [place] % (Auto) Eos % (Auto) Lymph # (Auto) [place] # (Auto) Eos # (Auto) Baso # (Auto) Seg Neutrophils % Seg Neuts % (Manual) Lymphocytes % (Manual) Seg Neutrophils # Seg Neutrophils # Man Lymphocytes # (Manual) D-Dimer ABG pH POC ABG pCO2 POC ABG pO2 ABG pO2 ABG HCO3 ABG O2 Saturation ABG Base Excess ABG Oxyhemoglobin ABG Sodium ABG Chloride ABG Glucose Oxyhemoglobin Carboxyhemoglobin Sodium Potassium Chloride Carbon Dioxide BUN Creatinine Glucose POC Glucose 231 H 106 H 174 H Hemoglobin A1c Magnesium Ferritin AST ALT Alkaline Phosphatase Lactate Dehydrogenase C-Reactive Protein Total Protein Albumin Arterial Blood Glucose Coronavirus (PCR) 05/14/21 05/14/21 05/14/21 00:53 02:23 06:06 WBC MCV MCH MCHC RDW Lymph % (Auto) [place] % (Auto) Eos % (Auto) Lymph # (Auto) [place] # (Auto) Eos # (Auto) Baso # (Auto) Seg Neutrophils % Seg Neuts % (Manual) Lymphocytes % (Manual) Seg Neutrophils # Seg Neutrophils # Man Lymphocytes # (Manual) D-Dimer ABG pH POC ABG pCO2 POC ABG pO2 ABG pO2 130.3 H ABG HCO3 30.6 H ABG O2 Saturation ABG Base Excess 4.9 H ABG Oxyhemoglobin ABG Sodium ABG Chloride ABG Glucose Oxyhemoglobin Carboxyhemoglobin Sodium Potassium Chloride Carbon Dioxide BUN Creatinine Glucose POC Glucose 229 H 119 H Hemoglobin A1c Magnesium Ferritin AST ALT Alkaline Phosphatase Lactate Dehydrogenase C-Reactive Protein Total Protein Albumin Arterial Blood Glucose Coronavirus (PCR) 05/14/21 05/14/21 05/14/21 07:13 07:13 07:13 WBC MCV MCH MCHC RDW Lymph % (Auto) [place] % (Auto) Eos % (Auto) Lymph # (Auto) [place] # (Auto) Eos # (Auto) Baso # (Auto) Seg Neutrophils % Seg Neuts % (Manual) Lymphocytes % (Manual) Seg Neutrophils # Seg Neutrophils # Man Lymphocytes # (Manual) D-Dimer 712.80 H ABG pH POC ABG pCO2 POC ABG pO2 ABG pO2 ABG HCO3 ABG O2 Saturation ABG Base Excess ABG Oxyhemoglobin ABG Sodium ABG Chloride ABG Glucose Oxyhemoglobin Carboxyhemoglobin Sodium 133 L Potassium Chloride 95.5 L Carbon Dioxide 32 H BUN Creatinine 0.2 L Glucose 137 H POC Glucose Hemoglobin A1c Magnesium Ferritin 283.5 H AST ALT 63 H Alkaline Phosphatase Lactate Dehydrogenase 563 H C-Reactive Protein Total Protein 6.1 L Albumin 3.0 L Arterial Blood Glucose Coronavirus (PCR) 05/14/21 05/14/21 05/14/21 12:21 15:33 21:50 WBC MCV MCH MCHC RDW Lymph % (Auto) [place] % (Auto) Eos % (Auto) Lymph # (Auto) [place] # (Auto) Eos # (Auto) Baso # (Auto) Seg Neutrophils % Seg Neuts % (Manual) Lymphocytes % (Manual) Seg Neutrophils # Seg Neutrophils # Man Lymphocytes # (Manual) D-Dimer ABG pH POC ABG pCO2 POC ABG pO2 ABG pO2 ABG HCO3 ABG O2 Saturation ABG Base Excess ABG Oxyhemoglobin ABG Sodium ABG Chloride ABG Glucose Oxyhemoglobin Carboxyhemoglobin Sodium Potassium Chloride Carbon Dioxide BUN Creatinine Glucose POC Glucose 143 H 204 H 202 H Hemoglobin A1c Magnesium Ferritin AST ALT Alkaline Phosphatase Lactate Dehydrogenase C-Reactive Protein Total Protein Albumin Arterial Blood Glucose Coronavirus (PCR) 05/15/21 05/15/21 05/15/21 05:05 11:12 16:39 WBC MCV MCH MCHC RDW Lymph % (Auto) [place] % (Auto) Eos % (Auto) Lymph # (Auto) [place] # (Auto) Eos # (Auto) Baso # (Auto) Seg Neutrophils % Seg Neuts % (Manual) Lymphocytes % (Manual) Seg Neutrophils # Seg Neutrophils # Man Lymphocytes # (Manual) D-Dimer ABG pH POC ABG pCO2 POC ABG pO2 ABG pO2 ABG HCO3 ABG O2 Saturation ABG Base Excess ABG Oxyhemoglobin ABG Sodium ABG Chloride ABG Glucose Oxyhemoglobin Carboxyhemoglobin Sodium Potassium Chloride Carbon Dioxide BUN Creatinine Glucose POC Glucose 125 H 201 H 241 H Hemoglobin A1c Magnesium Ferritin AST ALT Alkaline Phosphatase Lactate Dehydrogenase C-Reactive Protein Total Protein Albumin Arterial Blood Glucose Coronavirus (PCR) 05/15/21 05/16/21 05/16/21 21:31 05:04 10:40 WBC MCV MCH MCHC RDW Lymph % (Auto) [place] % (Auto) Eos % (Auto) Lymph # (Auto) [place] # (Auto) Eos # (Auto) Baso # (Auto) Seg Neutrophils % Seg Neuts % (Manual) Lymphocytes % (Manual) Seg Neutrophils # Seg Neutrophils # Man Lymphocytes # (Manual) D-Dimer ABG pH POC ABG pCO2 POC ABG pO2 ABG pO2 ABG HCO3 ABG O2 Saturation ABG Base Excess ABG Oxyhemoglobin ABG Sodium ABG Chloride ABG Glucose Oxyhemoglobin Carboxyhemoglobin Sodium Potassium Chloride Carbon Dioxide BUN Creatinine Glucose POC Glucose 234 H 123 H 231 H Hemoglobin A1c Magnesium Ferritin AST ALT Alkaline Phosphatase Lactate Dehydrogenase C-Reactive Protein Total Protein Albumin Arterial Blood Glucose Coronavirus (PCR) 05/16/21 05/16/21 05/17/21 18:23 21:29 06:20 WBC MCV MCH MCHC RDW 18.8 H Lymph % (Auto) 10.2 L [place] % (Auto) Eos % (Auto) Lymph # (Auto) 0.8 L [place] # (Auto) Eos # (Auto) Baso # (Auto) Seg Neutrophils % 85.8 H Seg Neuts % (Manual) Lymphocytes % (Manual) Seg Neutrophils # Seg Neutrophils # Man Lymphocytes # (Manual) D-Dimer ABG pH POC ABG pCO2 POC ABG pO2 ABG pO2 ABG HCO3 ABG O2 Saturation ABG Base Excess ABG Oxyhemoglobin ABG Sodium ABG Chloride ABG Glucose Oxyhemoglobin Carboxyhemoglobin Sodium Potassium Chloride Carbon Dioxide BUN Creatinine Glucose POC Glucose 266 H 234 H Hemoglobin A1c Magnesium Ferritin AST ALT Alkaline Phosphatase Lactate Dehydrogenase C-Reactive Protein Total Protein Albumin Arterial Blood Glucose Coronavirus (PCR) 05/17/21 05/17/21 05/17/21 06:20 11:06 16:36 WBC MCV MCH MCHC RDW Lymph % (Auto) [place] % (Auto) Eos % (Auto) Lymph # (Auto) [place] # (Auto) Eos # (Auto) Baso # (Auto) Seg Neutrophils % Seg Neuts % (Manual) Lymphocytes % (Manual) Seg Neutrophils # Seg Neutrophils # Man Lymphocytes # (Manual) D-Dimer ABG pH POC ABG pCO2 POC ABG pO2 ABG pO2 ABG HCO3 ABG O2 Saturation ABG Base Excess ABG Oxyhemoglobin ABG Sodium ABG Chloride ABG Glucose Oxyhemoglobin Carboxyhemoglobin Sodium Potassium Chloride Carbon Dioxide 33 H BUN Creatinine 0.2 L Glucose 101 H POC Glucose 209 H 180 H Hemoglobin A1c Magnesium Ferritin AST ALT Alkaline Phosphatase Lactate Dehydrogenase C-Reactive Protein Total Protein Albumin Arterial Blood Glucose Coronavirus (PCR) 05/17/21 05/18/21 05/18/21 21:06 12:00 15:06 WBC MCV MCH MCHC RDW Lymph % (Auto) [place] % (Auto) Eos % (Auto) Lymph # (Auto) [place] # (Auto) Eos # (Auto) Baso # (Auto) Seg Neutrophils % Seg Neuts % (Manual) Lymphocytes % (Manual) Seg Neutrophils # Seg Neutrophils # Man Lymphocytes # (Manual) D-Dimer 874.02 H ABG pH POC ABG pCO2 POC ABG pO2 ABG pO2 ABG HCO3 ABG O2 Saturation ABG Base Excess ABG Oxyhemoglobin ABG Sodium ABG Chloride ABG Glucose Oxyhemoglobin Carboxyhemoglobin Sodium Potassium Chloride Carbon Dioxide BUN Creatinine Glucose POC Glucose 256 H 139 H Hemoglobin A1c Magnesium Ferritin AST ALT Alkaline Phosphatase Lactate Dehydrogenase C-Reactive Protein Total Protein Albumin Arterial Blood Glucose Coronavirus (PCR) 05/18/21 05/18/21 05/18/21 15:06 15:06 16:08 WBC MCV MCH MCHC RDW Lymph % (Auto) [place] % (Auto) Eos % (Auto) Lymph # (Auto) [place] # (Auto) Eos # (Auto) Baso # (Auto) Seg Neutrophils % Seg Neuts % (Manual) Lymphocytes % (Manual) Seg Neutrophils # Seg Neutrophils # Man Lymphocytes # (Manual) D-Dimer ABG pH POC ABG pCO2 POC ABG pO2 ABG pO2 ABG HCO3 ABG O2 Saturation ABG Base Excess ABG Oxyhemoglobin ABG Sodium ABG Chloride ABG Glucose Oxyhemoglobin Carboxyhemoglobin Sodium Potassium Chloride Carbon Dioxide BUN Creatinine Glucose POC Glucose 178 H Hemoglobin A1c Magnesium Ferritin 289.6 H AST ALT Alkaline Phosphatase Lactate Dehydrogenase 605 H C-Reactive Protein Total Protein Albumin Arterial Blood Glucose Coronavirus (PCR) 05/18/21 05/19/21 05/19/21 21:22 11:57 15:26 WBC MCV MCH MCHC RDW Lymph % (Auto) [place] % (Auto) Eos % (Auto) Lymph # (Auto) [place] # (Auto) Eos # (Auto) Baso # (Auto) Seg Neutrophils % Seg Neuts % (Manual) Lymphocytes % (Manual) Seg Neutrophils # Seg Neutrophils # Man Lymphocytes # (Manual) D-Dimer ABG pH POC ABG pCO2 POC ABG pO2 ABG pO2 ABG HCO3 ABG O2 Saturation ABG Base Excess ABG Oxyhemoglobin ABG Sodium ABG Chloride ABG Glucose Oxyhemoglobin Carboxyhemoglobin Sodium Potassium Chloride Carbon Dioxide BUN Creatinine Glucose POC Glucose 241 H 201 H 209 H Hemoglobin A1c Magnesium Ferritin AST ALT Alkaline Phosphatase Lactate Dehydrogenase C-Reactive Protein Total Protein Albumin Arterial Blood Glucose Coronavirus (PCR) 05/19/21 05/20/21 05/20/21 20:59 07:38 08:01 WBC MCV MCH MCHC RDW 19.7 H Lymph % (Auto) 8.3 L [place] % (Auto) Eos % (Auto) Lymph # (Auto) 0.8 L [place] # (Auto) Eos # (Auto) Baso # (Auto) Seg Neutrophils % 88.6 H Seg Neuts % (Manual) Lymphocytes % (Manual) Seg Neutrophils # 8.4 H Seg Neutrophils # Man Lymphocytes # (Manual) D-Dimer ABG pH POC ABG pCO2 POC ABG pO2 ABG pO2 ABG HCO3 ABG O2 Saturation ABG Base Excess ABG Oxyhemoglobin ABG Sodium ABG Chloride ABG Glucose Oxyhemoglobin Carboxyhemoglobin Sodium Potassium Chloride Carbon Dioxide BUN Creatinine Glucose POC Glucose 226 H 130 H Hemoglobin A1c Magnesium Ferritin AST ALT Alkaline Phosphatase Lactate Dehydrogenase C-Reactive Protein Total Protein Albumin Arterial Blood Glucose Coronavirus (PCR) 05/20/21 05/20/21 05/20/21 08:01 11:00 16:43 WBC MCV MCH MCHC RDW Lymph % (Auto) [place] % (Auto) Eos % (Auto) Lymph # (Auto) [place] # (Auto) Eos # (Auto) Baso # (Auto) Seg Neutrophils % Seg Neuts % (Manual) Lymphocytes % (Manual) Seg Neutrophils # Seg Neutrophils # Man Lymphocytes # (Manual) D-Dimer ABG pH POC ABG pCO2 POC ABG pO2 ABG pO2 ABG HCO3 ABG O2 Saturation ABG Base Excess ABG Oxyhemoglobin ABG Sodium ABG Chloride ABG Glucose Oxyhemoglobin Carboxyhemoglobin Sodium Potassium Chloride Carbon Dioxide BUN 18 H Creatinine 0.2 L Glucose 132 H POC Glucose 237 H 240 H Hemoglobin A1c Magnesium Ferritin AST ALT Alkaline Phosphatase Lactate Dehydrogenase C-Reactive Protein Total Protein Albumin Arterial Blood Glucose Coronavirus (PCR) 05/20/21 05/21/21 05/21/21 21:21 07:35 11:32 WBC MCV MCH MCHC RDW Lymph % (Auto) [place] % (Auto) Eos % (Auto) Lymph # (Auto) [place] # (Auto) Eos # (Auto) Baso # (Auto) Seg Neutrophils % Seg Neuts % (Manual) Lymphocytes % (Manual) Seg Neutrophils # Seg Neutrophils # Man Lymphocytes # (Manual) D-Dimer ABG pH POC ABG pCO2 POC ABG pO2 ABG pO2 ABG HCO3 ABG O2 Saturation ABG Base Excess ABG Oxyhemoglobin ABG Sodium ABG Chloride ABG Glucose Oxyhemoglobin Carboxyhemoglobin Sodium Potassium Chloride Carbon Dioxide BUN Creatinine Glucose POC Glucose 241 H 162 H 171 H Hemoglobin A1c Magnesium Ferritin AST ALT Alkaline Phosphatase Lactate Dehydrogenase C-Reactive Protein Total Protein Albumin Arterial Blood Glucose Coronavirus (PCR) 05/21/21 05/21/21 05/22/21 16:22 20:43 05:14 WBC MCV MCH MCHC RDW Lymph % (Auto) [place] % (Auto) Eos % (Auto) Lymph # (Auto) [place] # (Auto) Eos # (Auto) Baso # (Auto) Seg Neutrophils % Seg Neuts % (Manual) Lymphocytes % (Manual) Seg Neutrophils # Seg Neutrophils # Man Lymphocytes # (Manual) D-Dimer ABG pH POC ABG pCO2 POC ABG pO2 ABG pO2 ABG HCO3 ABG O2 Saturation ABG Base Excess ABG Oxyhemoglobin ABG Sodium ABG Chloride ABG Glucose Oxyhemoglobin Carboxyhemoglobin Sodium Potassium Chloride Carbon Dioxide BUN Creatinine Glucose POC Glucose 244 H 299 H 140 H Hemoglobin A1c Magnesium Ferritin AST ALT Alkaline Phosphatase Lactate Dehydrogenase C-Reactive Protein Total Protein Albumin Arterial Blood Glucose Coronavirus (PCR) 05/22/21 05/22/21 05/22/21 08:45 11:54 16:15 WBC MCV MCH MCHC RDW Lymph % (Auto) [place] % (Auto) Eos % (Auto) Lymph # (Auto) [place] # (Auto) Eos # (Auto) Baso # (Auto) Seg Neutrophils % Seg Neuts % (Manual) Lymphocytes % (Manual) Seg Neutrophils # Seg Neutrophils # Man Lymphocytes # (Manual) D-Dimer ABG pH POC ABG pCO2 POC ABG pO2 ABG pO2 ABG HCO3 ABG O2 Saturation ABG Base Excess ABG Oxyhemoglobin ABG Sodium ABG Chloride ABG Glucose Oxyhemoglobin Carboxyhemoglobin Sodium Potassium Chloride Carbon Dioxide BUN Creatinine Glucose POC Glucose 133 H 265 H 221 H Hemoglobin A1c Magnesium Ferritin AST ALT Alkaline Phosphatase Lactate Dehydrogenase C-Reactive Protein Total Protein Albumin Arterial Blood Glucose Coronavirus (PCR) 05/22/21 05/23/21 05/23/21 21:43 08:20 09:50 WBC MCV MCH MCHC RDW Lymph % (Auto) [place] % (Auto) Eos % (Auto) Lymph # (Auto) [place] # (Auto) Eos # (Auto) Baso # (Auto) Seg Neutrophils % Seg Neuts % (Manual) Lymphocytes % (Manual) Seg Neutrophils # Seg Neutrophils # Man Lymphocytes # (Manual) D-Dimer 910.38 H ABG pH POC ABG pCO2 POC ABG pO2 ABG pO2 ABG HCO3 ABG O2 Saturation ABG Base Excess ABG Oxyhemoglobin ABG Sodium ABG Chloride ABG Glucose Oxyhemoglobin Carboxyhemoglobin Sodium Potassium Chloride Carbon Dioxide BUN Creatinine Glucose POC Glucose 262 H 140 H Hemoglobin A1c Magnesium Ferritin AST ALT Alkaline Phosphatase Lactate Dehydrogenase C-Reactive Protein Total Protein Albumin Arterial Blood Glucose Coronavirus (PCR) 05/23/21 05/23/21 05/23/21 09:50 09:50 10:52 WBC MCV MCH MCHC RDW Lymph % (Auto) [place] % (Auto) Eos % (Auto) Lymph # (Auto) [place] # (Auto) Eos # (Auto) Baso # (Auto) Seg Neutrophils % Seg Neuts % (Manual) Lymphocytes % (Manual) Seg Neutrophils # Seg Neutrophils # Man Lymphocytes # (Manual) D-Dimer ABG pH POC ABG pCO2 POC ABG pO2 ABG pO2 ABG HCO3 ABG O2 Saturation ABG Base Excess ABG Oxyhemoglobin ABG Sodium ABG Chloride ABG Glucose Oxyhemoglobin Carboxyhemoglobin Sodium Potassium Chloride Carbon Dioxide BUN Creatinine Glucose POC Glucose 241 H Hemoglobin A1c Magnesium Ferritin 244.9 H AST ALT Alkaline Phosphatase Lactate Dehydrogenase 584 H C-Reactive Protein Total Protein Albumin Arterial Blood Glucose Coronavirus (PCR) 05/23/21 05/23/21 05/24/21 17:24 21:52 07:44 WBC MCV MCH MCHC RDW Lymph % (Auto) [place] % (Auto) Eos % (Auto) Lymph # (Auto) [place] # (Auto) Eos # (Auto) Baso # (Auto) Seg Neutrophils % Seg Neuts % (Manual) Lymphocytes % (Manual) Seg Neutrophils # Seg Neutrophils # Man Lymphocytes # (Manual) D-Dimer ABG pH POC ABG pCO2 POC ABG pO2 ABG pO2 ABG HCO3 ABG O2 Saturation ABG Base Excess ABG Oxyhemoglobin ABG Sodium ABG Chloride ABG Glucose Oxyhemoglobin Carboxyhemoglobin Sodium Potassium Chloride Carbon Dioxide BUN Creatinine Glucose POC Glucose 197 H 289 H 161 H Hemoglobin A1c Magnesium Ferritin AST ALT Alkaline Phosphatase Lactate Dehydrogenase C-Reactive Protein Total Protein Albumin Arterial Blood Glucose Coronavirus (PCR) 05/24/21 05/24/21 05/24/21 11:17 17:51 21:26 WBC MCV MCH MCHC RDW Lymph % (Auto) [place] % (Auto) Eos % (Auto) Lymph # (Auto) [place] # (Auto) Eos # (Auto) Baso # (Auto) Seg Neutrophils % Seg Neuts % (Manual) Lymphocytes % (Manual) Seg Neutrophils # Seg Neutrophils # Man Lymphocytes # (Manual) D-Dimer ABG pH POC ABG pCO2 POC ABG pO2 ABG pO2 ABG HCO3 ABG O2 Saturation ABG Base Excess ABG Oxyhemoglobin ABG Sodium ABG Chloride ABG Glucose Oxyhemoglobin Carboxyhemoglobin Sodium Potassium Chloride Carbon Dioxide BUN Creatinine Glucose POC Glucose 308 H 175 H 198 H Hemoglobin A1c Magnesium Ferritin AST ALT Alkaline Phosphatase Lactate Dehydrogenase C-Reactive Protein Total Protein Albumin Arterial Blood Glucose Coronavirus (PCR) 05/25/21 05/25/21 05/25/21 08:14 11:13 17:13 WBC MCV MCH MCHC RDW Lymph % (Auto) [place] % (Auto) Eos % (Auto) Lymph # (Auto) [place] # (Auto) Eos # (Auto) Baso # (Auto) Seg Neutrophils % Seg Neuts % (Manual) Lymphocytes % (Manual) Seg Neutrophils # Seg Neutrophils # Man Lymphocytes # (Manual) D-Dimer ABG pH POC ABG pCO2 POC ABG pO2 ABG pO2 ABG HCO3 ABG O2 Saturation ABG Base Excess ABG Oxyhemoglobin ABG Sodium ABG Chloride ABG Glucose Oxyhemoglobin Carboxyhemoglobin Sodium Potassium Chloride Carbon Dioxide BUN Creatinine Glucose POC Glucose 203 H 339 H 235 H Hemoglobin A1c Magnesium Ferritin AST ALT Alkaline Phosphatase Lactate Dehydrogenase C-Reactive Protein Total Protein Albumin Arterial Blood Glucose Coronavirus (PCR) 05/25/21 05/26/21 05/26/21 21:03 07:33 11:19 WBC MCV MCH MCHC RDW Lymph % (Auto) [place] % (Auto) Eos % (Auto) Lymph # (Auto) [place] # (Auto) Eos # (Auto) Baso # (Auto) Seg Neutrophils % Seg Neuts % (Manual) Lymphocytes % (Manual) Seg Neutrophils # Seg Neutrophils # Man Lymphocytes # (Manual) D-Dimer ABG pH POC ABG pCO2 POC ABG pO2 ABG pO2 ABG HCO3 ABG O2 Saturation ABG Base Excess ABG Oxyhemoglobin ABG Sodium ABG Chloride ABG Glucose Oxyhemoglobin Carboxyhemoglobin Sodium Potassium Chloride Carbon Dioxide BUN Creatinine Glucose POC Glucose 263 H 156 H 288 H Hemoglobin A1c Magnesium Ferritin AST ALT Alkaline Phosphatase Lactate Dehydrogenase C-Reactive Protein Total Protein Albumin Arterial Blood Glucose Coronavirus (PCR) 05/26/21 05/26/21 05/27/21 16:26 20:55 07:38 WBC MCV MCH MCHC RDW Lymph % (Auto) [place] % (Auto) Eos % (Auto) Lymph # (Auto) [place] # (Auto) Eos # (Auto) Baso # (Auto) Seg Neutrophils % Seg Neuts % (Manual) Lymphocytes % (Manual) Seg Neutrophils # Seg Neutrophils # Man Lymphocytes # (Manual) D-Dimer ABG pH POC ABG pCO2 POC ABG pO2 ABG pO2 ABG HCO3 ABG O2 Saturation ABG Base Excess ABG Oxyhemoglobin ABG Sodium ABG Chloride ABG Glucose Oxyhemoglobin Carboxyhemoglobin Sodium Potassium Chloride Carbon Dioxide BUN Creatinine Glucose POC Glucose 286 H 293 H 115 H Hemoglobin A1c Magnesium Ferritin AST ALT Alkaline Phosphatase Lactate Dehydrogenase C-Reactive Protein Total Protein Albumin Arterial Blood Glucose Coronavirus (PCR) 05/27/21 05/27/21 05/27/21 11:46 15:58 21:02 WBC MCV MCH MCHC RDW Lymph % (Auto) [place] % (Auto) Eos % (Auto) Lymph # (Auto) [place] # (Auto) Eos # (Auto) Baso # (Auto) Seg Neutrophils % Seg Neuts % (Manual) Lymphocytes % (Manual) Seg Neutrophils # Seg Neutrophils # Man Lymphocytes # (Manual) D-Dimer ABG pH POC ABG pCO2 POC ABG pO2 ABG pO2 ABG HCO3 ABG O2 Saturation ABG Base Excess ABG Oxyhemoglobin ABG Sodium ABG Chloride ABG Glucose Oxyhemoglobin Carboxyhemoglobin Sodium Potassium Chloride Carbon Dioxide BUN Creatinine Glucose POC Glucose 260 H 318 H 246 H Hemoglobin A1c Magnesium Ferritin AST ALT Alkaline Phosphatase Lactate Dehydrogenase C-Reactive Protein Total Protein Albumin Arterial Blood Glucose Coronavirus (PCR) 05/28/21 05/28/21 05/28/21 07:34 11:31 16:36 WBC MCV MCH MCHC RDW Lymph % (Auto) [place] % (Auto) Eos % (Auto) Lymph # (Auto) [place] # (Auto) Eos # (Auto) Baso # (Auto) Seg Neutrophils % Seg Neuts % (Manual) Lymphocytes % (Manual) Seg Neutrophils # Seg Neutrophils # Man Lymphocytes # (Manual) D-Dimer ABG pH POC ABG pCO2 POC ABG pO2 ABG pO2 ABG HCO3 ABG O2 Saturation ABG Base Excess ABG Oxyhemoglobin ABG Sodium ABG Chloride ABG Glucose Oxyhemoglobin Carboxyhemoglobin Sodium Potassium Chloride Carbon Dioxide BUN Creatinine Glucose POC Glucose 185 H 297 H 183 H Hemoglobin A1c Magnesium Ferritin AST ALT Alkaline Phosphatase Lactate Dehydrogenase C-Reactive Protein Total Protein Albumin Arterial Blood Glucose Coronavirus (PCR) 05/28/21 05/29/21 05/29/21 21:19 07:34 11:19 WBC MCV MCH MCHC RDW Lymph % (Auto) [place] % (Auto) Eos % (Auto) Lymph # (Auto) [place] # (Auto) Eos # (Auto) Baso # (Auto) Seg Neutrophils % Seg Neuts % (Manual) Lymphocytes % (Manual) Seg Neutrophils # Seg Neutrophils # Man Lymphocytes # (Manual) D-Dimer ABG pH POC ABG pCO2 POC ABG pO2 ABG pO2 ABG HCO3 ABG O2 Saturation ABG Base Excess ABG Oxyhemoglobin ABG Sodium ABG Chloride ABG Glucose Oxyhemoglobin Carboxyhemoglobin Sodium Potassium Chloride Carbon Dioxide BUN Creatinine Glucose POC Glucose 274 H 139 H 293 H Hemoglobin A1c Magnesium Ferritin AST ALT Alkaline Phosphatase Lactate Dehydrogenase C-Reactive Protein Total Protein Albumin Arterial Blood Glucose Coronavirus (PCR) 05/29/21 05/29/21 05/30/21 16:36 22:44 05:55 WBC MCV MCH MCHC RDW 21.3 H Lymph % (Auto) 8.0 L [place] % (Auto) Eos % (Auto) Lymph # (Auto) 0.6 L [place] # (Auto) Eos # (Auto) Baso # (Auto) Seg Neutrophils % 88.6 H Seg Neuts % (Manual) Lymphocytes % (Manual) Seg Neutrophils # Seg Neutrophils # Man Lymphocytes # (Manual) D-Dimer ABG pH POC ABG pCO2 POC ABG pO2 ABG pO2 ABG HCO3 ABG O2 Saturation ABG Base Excess ABG Oxyhemoglobin ABG Sodium ABG Chloride ABG Glucose Oxyhemoglobin Carboxyhemoglobin Sodium Potassium Chloride Carbon Dioxide BUN Creatinine Glucose POC Glucose 299 H 160 H Hemoglobin A1c Magnesium Ferritin AST ALT Alkaline Phosphatase Lactate Dehydrogenase C-Reactive Protein Total Protein Albumin Arterial Blood Glucose Coronavirus (PCR) 05/30/21 05/30/21 05/30/21 05:55 08:04 11:13 WBC MCV MCH MCHC RDW Lymph % (Auto) [place] % (Auto) Eos % (Auto) Lymph # (Auto) [place] # (Auto) Eos # (Auto) Baso # (Auto) Seg Neutrophils % Seg Neuts % (Manual) Lymphocytes % (Manual) Seg Neutrophils # Seg Neutrophils # Man Lymphocytes # (Manual) D-Dimer ABG pH POC ABG pCO2 POC ABG pO2 ABG pO2 ABG HCO3 ABG O2 Saturation ABG Base Excess ABG Oxyhemoglobin ABG Sodium ABG Chloride ABG Glucose Oxyhemoglobin Carboxyhemoglobin Sodium Potassium Chloride Carbon Dioxide BUN 19 H Creatinine 0.2 L Glucose 209 H POC Glucose 157 H 275 H Hemoglobin A1c Magnesium Ferritin AST ALT Alkaline Phosphatase Lactate Dehydrogenase C-Reactive Protein Total Protein Albumin Arterial Blood Glucose Coronavirus (PCR) 05/30/21 05/30/21 05/31/21 17:08 22:12 07:36 WBC MCV MCH MCHC RDW Lymph % (Auto) [place] % (Auto) Eos % (Auto) Lymph # (Auto) [place] # (Auto) Eos # (Auto) Baso # (Auto) Seg Neutrophils % Seg Neuts % (Manual) Lymphocytes % (Manual) Seg Neutrophils # Seg Neutrophils # Man Lymphocytes # (Manual) D-Dimer ABG pH POC ABG pCO2 POC ABG pO2 ABG pO2 ABG HCO3 ABG O2 Saturation ABG Base Excess ABG Oxyhemoglobin ABG Sodium ABG Chloride ABG Glucose Oxyhemoglobin Carboxyhemoglobin Sodium Potassium Chloride Carbon Dioxide BUN Creatinine Glucose POC Glucose 154 H 275 H 138 H Hemoglobin A1c Magnesium Ferritin AST ALT Alkaline Phosphatase Lactate Dehydrogenase C-Reactive Protein Total Protein Albumin Arterial Blood Glucose Coronavirus (PCR) 05/31/21 05/31/21 05/31/21 11:17 16:55 21:25 WBC MCV MCH MCHC RDW Lymph % (Auto) [place] % (Auto) Eos % (Auto) Lymph # (Auto) [place] # (Auto) Eos # (Auto) Baso # (Auto) Seg Neutrophils % Seg Neuts % (Manual) Lymphocytes % (Manual) Seg Neutrophils # Seg Neutrophils # Man Lymphocytes # (Manual) D-Dimer ABG pH POC ABG pCO2 POC ABG pO2 ABG pO2 ABG HCO3 ABG O2 Saturation ABG Base Excess ABG Oxyhemoglobin ABG Sodium ABG Chloride ABG Glucose Oxyhemoglobin Carboxyhemoglobin Sodium Potassium Chloride Carbon Dioxide BUN Creatinine Glucose POC Glucose 258 H 215 H 318 H Hemoglobin A1c Magnesium Ferritin AST ALT Alkaline Phosphatase Lactate Dehydrogenase C-Reactive Protein Total Protein Albumin Arterial Blood Glucose Coronavirus (PCR) 06/01/21 06/01/21 06/01/21 07:23 11:38 16:52 WBC MCV MCH MCHC RDW Lymph % (Auto) [place] % (Auto) Eos % (Auto) Lymph # (Auto) [place] # (Auto) Eos # (Auto) Baso # (Auto) Seg Neutrophils % Seg Neuts % (Manual) Lymphocytes % (Manual) Seg Neutrophils # Seg Neutrophils # Man Lymphocytes # (Manual) D-Dimer ABG pH POC ABG pCO2 POC ABG pO2 ABG pO2 ABG HCO3 ABG O2 Saturation ABG Base Excess ABG Oxyhemoglobin ABG Sodium ABG Chloride ABG Glucose Oxyhemoglobin Carboxyhemoglobin Sodium Potassium Chloride Carbon Dioxide BUN Creatinine Glucose POC Glucose 157 H 259 H 150 H Hemoglobin A1c Magnesium Ferritin AST ALT Alkaline Phosphatase Lactate Dehydrogenase C-Reactive Protein Total Protein Albumin Arterial Blood Glucose Coronavirus (PCR) 06/01/21 06/02/21 06/02/21 23:16 05:34 05:34 WBC MCV MCH MCHC RDW 21.3 H Lymph % (Auto) 9.6 L [place] % (Auto) Eos % (Auto) Lymph # (Auto) 0.6 L [place] # (Auto) Eos # (Auto) Baso # (Auto) Seg Neutrophils % 86.2 H Seg Neuts % (Manual) Lymphocytes % (Manual) Seg Neutrophils # Seg Neutrophils # Man Lymphocytes # (Manual) D-Dimer ABG pH POC ABG pCO2 POC ABG pO2 ABG pO2 ABG HCO3 ABG O2 Saturation ABG Base Excess ABG Oxyhemoglobin ABG Sodium ABG Chloride ABG Glucose Oxyhemoglobin Carboxyhemoglobin Sodium 136 L Potassium Chloride Carbon Dioxide BUN Creatinine 0.2 L Glucose 186 H POC Glucose 247 H Hemoglobin A1c Magnesium Ferritin AST ALT 69 H Alkaline Phosphatase Lactate Dehydrogenase C-Reactive Protein Total Protein 6.1 L Albumin 3.2 L Arterial Blood Glucose Coronavirus (PCR) 06/02/21 06/02/21 06/02/21 11:25 18:23 21:32 WBC MCV MCH MCHC RDW Lymph % (Auto) [place] % (Auto) Eos % (Auto) Lymph # (Auto) [place] # (Auto) Eos # (Auto) Baso # (Auto) Seg Neutrophils % Seg Neuts % (Manual) Lymphocytes % (Manual) Seg Neutrophils # Seg Neutrophils # Man Lymphocytes # (Manual) D-Dimer ABG pH POC ABG pCO2 POC ABG pO2 ABG pO2 ABG HCO3 ABG O2 Saturation ABG Base Excess ABG Oxyhemoglobin ABG Sodium ABG Chloride ABG Glucose Oxyhemoglobin Carboxyhemoglobin Sodium Potassium Chloride Carbon Dioxide BUN Creatinine Glucose POC Glucose 157 H 299 H 246 H Hemoglobin A1c Magnesium Ferritin AST ALT Alkaline Phosphatase Lactate Dehydrogenase C-Reactive Protein Total Protein Albumin Arterial Blood Glucose Coronavirus (PCR) 06/03/21 06/03/21 06/03/21 08:12 12:21 17:31 WBC MCV MCH MCHC RDW Lymph % (Auto) [place] % (Auto) Eos % (Auto) Lymph # (Auto) [place] # (Auto) Eos # (Auto) Baso # (Auto) Seg Neutrophils % Seg Neuts % (Manual) Lymphocytes % (Manual) Seg Neutrophils # Seg Neutrophils # Man Lymphocytes # (Manual) D-Dimer ABG pH POC ABG pCO2 POC ABG pO2 ABG pO2 ABG HCO3 ABG O2 Saturation ABG Base Excess ABG Oxyhemoglobin ABG Sodium ABG Chloride ABG Glucose Oxyhemoglobin Carboxyhemoglobin Sodium Potassium Chloride Carbon Dioxide BUN Creatinine Glucose POC Glucose 153 H 302 H 252 H Hemoglobin A1c Magnesium Ferritin AST ALT Alkaline Phosphatase Lactate Dehydrogenase C-Reactive Protein Total Protein Albumin Arterial Blood Glucose Coronavirus (PCR) 06/03/21 06/04/21 06/04/21 22:08 11:12 16:01 WBC MCV MCH MCHC RDW Lymph % (Auto) [place] % (Auto) Eos % (Auto) Lymph # (Auto) [place] # (Auto) Eos # (Auto) Baso # (Auto) Seg Neutrophils % Seg Neuts % (Manual) Lymphocytes % (Manual) Seg Neutrophils # Seg Neutrophils # Man Lymphocytes # (Manual) D-Dimer ABG pH POC ABG pCO2 POC ABG pO2 ABG pO2 ABG HCO3 ABG O2 Saturation ABG Base Excess ABG Oxyhemoglobin ABG Sodium ABG Chloride ABG Glucose Oxyhemoglobin Carboxyhemoglobin Sodium Potassium Chloride Carbon Dioxide BUN Creatinine Glucose POC Glucose 224 H 259 H 238 H Hemoglobin A1c Magnesium Ferritin AST ALT Alkaline Phosphatase Lactate Dehydrogenase C-Reactive Protein Total Protein Albumin Arterial Blood Glucose Coronavirus (PCR) 06/04/21 06/05/21 06/05/21 21:26 05:26 05:26 WBC MCV MCH MCHC RDW Lymph % (Auto) [place] % (Auto) Eos % (Auto) Lymph # (Auto) [place] # (Auto) Eos # (Auto) Baso # (Auto) Seg Neutrophils % Seg Neuts % (Manual) Lymphocytes % (Manual) Seg Neutrophils # Seg Neutrophils # Man Lymphocytes # (Manual) D-Dimer 488.49 H ABG pH POC ABG pCO2 POC ABG pO2 ABG pO2 ABG HCO3 ABG O2 Saturation ABG Base Excess ABG Oxyhemoglobin ABG Sodium ABG Chloride ABG Glucose Oxyhemoglobin Carboxyhemoglobin Sodium Potassium Chloride Carbon Dioxide BUN Creatinine 0.2 L Glucose 198 H POC Glucose 257 H Hemoglobin A1c Magnesium Ferritin AST ALT Alkaline Phosphatase Lactate Dehydrogenase 475 H C-Reactive Protein Total Protein Albumin Arterial Blood Glucose Coronavirus (PCR) 06/05/21 06/05/21 06/05/21 07:20 08:30 11:00 WBC MCV MCH MCHC RDW Lymph % (Auto) [place] % (Auto) Eos % (Auto) Lymph # (Auto) [place] # (Auto) Eos # (Auto) Baso # (Auto) Seg Neutrophils % Seg Neuts % (Manual) Lymphocytes % (Manual) Seg Neutrophils # Seg Neutrophils # Man Lymphocytes # (Manual) D-Dimer ABG pH POC ABG pCO2 POC ABG pO2 ABG pO2 ABG HCO3 ABG O2 Saturation ABG Base Excess ABG Oxyhemoglobin ABG Sodium ABG Chloride ABG Glucose Oxyhemoglobin Carboxyhemoglobin Sodium Potassium Chloride Carbon Dioxide BUN Creatinine Glucose POC Glucose 146 H 246 H Hemoglobin A1c Magnesium Ferritin AST ALT Alkaline Phosphatase Lactate Dehydrogenase C-Reactive Protein Total Protein Albumin Arterial Blood Glucose Coronavirus (PCR) Positive A 06/05/21 06/05/21 06/06/21 16:50 22:30 07:57 WBC MCV MCH MCHC RDW Lymph % (Auto) [place] % (Auto) Eos % (Auto) Lymph # (Auto) [place] # (Auto) Eos # (Auto) Baso # (Auto) Seg Neutrophils % Seg Neuts % (Manual) Lymphocytes % (Manual) Seg Neutrophils # Seg Neutrophils # Man Lymphocytes # (Manual) D-Dimer ABG pH POC ABG pCO2 POC ABG pO2 ABG pO2 ABG HCO3 ABG O2 Saturation ABG Base Excess ABG Oxyhemoglobin ABG Sodium ABG Chloride ABG Glucose Oxyhemoglobin Carboxyhemoglobin Sodium Potassium Chloride Carbon Dioxide BUN Creatinine Glucose POC Glucose 240 H 174 H 120 H Hemoglobin A1c Magnesium Ferritin AST ALT Alkaline Phosphatase Lactate Dehydrogenase C-Reactive Protein Total Protein Albumin Arterial Blood Glucose Coronavirus (PCR) 06/06/21 06/06/21 06/06/21 11:14 16:50 21:11 WBC MCV MCH MCHC RDW Lymph % (Auto) [place] % (Auto) Eos % (Auto) Lymph # (Auto) [place] # (Auto) Eos # (Auto) Baso # (Auto) Seg Neutrophils % Seg Neuts % (Manual) Lymphocytes % (Manual) Seg Neutrophils # Seg Neutrophils # Man Lymphocytes # (Manual) D-Dimer ABG pH POC ABG pCO2 POC ABG pO2 ABG pO2 ABG HCO3 ABG O2 Saturation ABG Base Excess ABG Oxyhemoglobin ABG Sodium ABG Chloride ABG Glucose Oxyhemoglobin Carboxyhemoglobin Sodium Potassium Chloride Carbon Dioxide BUN Creatinine Glucose POC Glucose 267 H 218 H 124 H Hemoglobin A1c Magnesium Ferritin AST ALT Alkaline Phosphatase Lactate Dehydrogenase C-Reactive Protein Total Protein Albumin Arterial Blood Glucose Coronavirus (PCR) 06/07/21 06/07/21 06/08/21 11:58 15:59 07:59 WBC MCV MCH MCHC RDW Lymph % (Auto) [place] % (Auto) Eos % (Auto) Lymph # (Auto) [place] # (Auto) Eos # (Auto) Baso # (Auto) Seg Neutrophils % Seg Neuts % (Manual) Lymphocytes % (Manual) Seg Neutrophils # Seg Neutrophils # Man Lymphocytes # (Manual) D-Dimer ABG pH POC ABG pCO2 POC ABG pO2 ABG pO2 ABG HCO3 ABG O2 Saturation ABG Base Excess ABG Oxyhemoglobin ABG Sodium ABG Chloride ABG Glucose Oxyhemoglobin Carboxyhemoglobin Sodium Potassium Chloride Carbon Dioxide BUN Creatinine Glucose POC Glucose 219 H 208 H 192 H Hemoglobin A1c Magnesium Ferritin AST ALT Alkaline Phosphatase Lactate Dehydrogenase C-Reactive Protein Total Protein Albumin Arterial Blood Glucose Coronavirus (PCR) 06/08/21 06/08/21 06/09/21 11:26 23:28 07:33 WBC MCV MCH MCHC RDW Lymph % (Auto) [place] % (Auto) Eos % (Auto) Lymph # (Auto) [place] # (Auto) Eos # (Auto) Baso # (Auto) Seg Neutrophils % Seg Neuts % (Manual) Lymphocytes % (Manual) Seg Neutrophils # Seg Neutrophils # Man Lymphocytes # (Manual) D-Dimer ABG pH POC ABG pCO2 POC ABG pO2 ABG pO2 ABG HCO3 ABG O2 Saturation ABG Base Excess ABG Oxyhemoglobin ABG Sodium ABG Chloride ABG Glucose Oxyhemoglobin Carboxyhemoglobin Sodium Potassium Chloride Carbon Dioxide BUN Creatinine Glucose POC Glucose 307 H 138 H 145 H Hemoglobin A1c Magnesium Ferritin AST ALT Alkaline Phosphatase Lactate Dehydrogenase C-Reactive Protein Total Protein Albumin Arterial Blood Glucose Coronavirus (PCR) 06/09/21 06/09/21 06/09/21 11:01 15:47 21:43 WBC MCV MCH MCHC RDW Lymph % (Auto) [place] % (Auto) Eos % (Auto) Lymph # (Auto) [place] # (Auto) Eos # (Auto) Baso # (Auto) Seg Neutrophils % Seg Neuts % (Manual) Lymphocytes % (Manual) Seg Neutrophils # Seg Neutrophils # Man Lymphocytes # (Manual) D-Dimer ABG pH POC ABG pCO2 POC ABG pO2 ABG pO2 ABG HCO3 ABG O2 Saturation ABG Base Excess ABG Oxyhemoglobin ABG Sodium ABG Chloride ABG Glucose Oxyhemoglobin Carboxyhemoglobin Sodium Potassium Chloride Carbon Dioxide BUN Creatinine Glucose POC Glucose 266 H 305 H 223 H Hemoglobin A1c Magnesium Ferritin AST ALT Alkaline Phosphatase Lactate Dehydrogenase C-Reactive Protein Total Protein Albumin Arterial Blood Glucose Coronavirus (PCR) 06/10/21 06/10/21 06/10/21 08:27 12:10 17:45 WBC MCV MCH MCHC RDW Lymph % (Auto) [place] % (Auto) Eos % (Auto) Lymph # (Auto) [place] # (Auto) Eos # (Auto) Baso # (Auto) Seg Neutrophils % Seg Neuts % (Manual) Lymphocytes % (Manual) Seg Neutrophils # Seg Neutrophils # Man Lymphocytes # (Manual) D-Dimer ABG pH POC ABG pCO2 POC ABG pO2 ABG pO2 ABG HCO3 ABG O2 Saturation ABG Base Excess ABG Oxyhemoglobin ABG Sodium ABG Chloride ABG Glucose Oxyhemoglobin Carboxyhemoglobin Sodium Potassium Chloride Carbon Dioxide BUN Creatinine Glucose POC Glucose 174 H 306 H 210 H Hemoglobin A1c Magnesium Ferritin AST ALT Alkaline Phosphatase Lactate Dehydrogenase C-Reactive Protein Total Protein Albumin Arterial Blood Glucose Coronavirus (PCR) 06/10/21 06/11/21 06/11/21 21:45 09:38 09:38 WBC MCV MCH MCHC RDW 20.9 H Lymph % (Auto) [place] % (Auto) Eos % (Auto) Lymph # (Auto) [place] # (Auto) Eos # (Auto) Baso # (Auto) Seg Neutrophils % Seg Neuts % (Manual) Lymphocytes % (Manual) Seg Neutrophils # Seg Neutrophils # Man Lymphocytes # (Manual) D-Dimer ABG pH POC ABG pCO2 POC ABG pO2 ABG pO2 ABG HCO3 ABG O2 Saturation ABG Base Excess ABG Oxyhemoglobin ABG Sodium ABG Chloride ABG Glucose Oxyhemoglobin Carboxyhemoglobin Sodium 135 L Potassium Chloride 90.8 L Carbon Dioxide 36 H BUN 29 H Creatinine 0.2 L Glucose 258 H POC Glucose 262 H Hemoglobin A1c Magnesium Ferritin AST ALT Alkaline Phosphatase Lactate Dehydrogenase C-Reactive Protein Total Protein Albumin Arterial Blood Glucose Coronavirus (PCR) 06/11/21 06/11/21 06/11/21 11:20 15:49 22:57 WBC MCV MCH MCHC RDW Lymph % (Auto) [place] % (Auto) Eos % (Auto) Lymph # (Auto) [place] # (Auto) Eos # (Auto) Baso # (Auto) Seg Neutrophils % Seg Neuts % (Manual) Lymphocytes % (Manual) Seg Neutrophils # Seg Neutrophils # Man Lymphocytes # (Manual) D-Dimer ABG pH POC ABG pCO2 POC ABG pO2 ABG pO2 ABG HCO3 ABG O2 Saturation ABG Base Excess ABG Oxyhemoglobin ABG Sodium ABG Chloride ABG Glucose Oxyhemoglobin Carboxyhemoglobin Sodium Potassium Chloride Carbon Dioxide BUN Creatinine Glucose POC Glucose 269 H 206 H 211 H Hemoglobin A1c Magnesium Ferritin AST ALT Alkaline Phosphatase Lactate Dehydrogenase C-Reactive Protein Total Protein Albumin Arterial Blood Glucose Coronavirus (PCR) 06/12/21 06/12/21 06/12/21 08:07 11:24 18:08 WBC MCV MCH MCHC RDW Lymph % (Auto) [place] % (Auto) Eos % (Auto) Lymph # (Auto) [place] # (Auto) Eos # (Auto) Baso # (Auto) Seg Neutrophils % Seg Neuts % (Manual) Lymphocytes % (Manual) Seg Neutrophils # Seg Neutrophils # Man Lymphocytes # (Manual) D-Dimer ABG pH POC ABG pCO2 POC ABG pO2 ABG pO2 ABG HCO3 ABG O2 Saturation ABG Base Excess ABG Oxyhemoglobin ABG Sodium ABG Chloride ABG Glucose Oxyhemoglobin Carboxyhemoglobin Sodium Potassium Chloride Carbon Dioxide BUN Creatinine Glucose POC Glucose 149 H 270 H 166 H Hemoglobin A1c Magnesium Ferritin AST ALT Alkaline Phosphatase Lactate Dehydrogenase C-Reactive Protein Total Protein Albumin Arterial Blood Glucose Coronavirus (PCR) 06/12/21 06/13/21 06/13/21 20:22 07:50 11:18 WBC MCV MCH MCHC RDW Lymph % (Auto) [place] % (Auto) Eos % (Auto) Lymph # (Auto) [place] # (Auto) Eos # (Auto) Baso # (Auto) Seg Neutrophils % Seg Neuts % (Manual) Lymphocytes % (Manual) Seg Neutrophils # Seg Neutrophils # Man Lymphocytes # (Manual) D-Dimer ABG pH POC ABG pCO2 POC ABG pO2 ABG pO2 ABG HCO3 ABG O2 Saturation ABG Base Excess ABG Oxyhemoglobin ABG Sodium ABG Chloride ABG Glucose Oxyhemoglobin Carboxyhemoglobin Sodium Potassium Chloride Carbon Dioxide BUN Creatinine Glucose POC Glucose 155 H 163 H 293 H Hemoglobin A1c Magnesium Ferritin AST ALT Alkaline Phosphatase Lactate Dehydrogenase C-Reactive Protein Total Protein Albumin Arterial Blood Glucose Coronavirus (PCR) 06/13/21 06/13/21 06/14/21 16:41 21:00 07:41 WBC MCV MCH MCHC RDW Lymph % (Auto) [place] % (Auto) Eos % (Auto) Lymph # (Auto) [place] # (Auto) Eos # (Auto) Baso # (Auto) Seg Neutrophils % Seg Neuts % (Manual) Lymphocytes % (Manual) Seg Neutrophils # Seg Neutrophils # Man Lymphocytes # (Manual) D-Dimer ABG pH POC ABG pCO2 POC ABG pO2 ABG pO2 ABG HCO3 ABG O2 Saturation ABG Base Excess ABG Oxyhemoglobin ABG Sodium ABG Chloride ABG Glucose Oxyhemoglobin Carboxyhemoglobin Sodium Potassium Chloride Carbon Dioxide BUN Creatinine Glucose POC Glucose 232 H 183 H 52 L Hemoglobin A1c Magnesium Ferritin AST ALT Alkaline Phosphatase Lactate Dehydrogenase C-Reactive Protein Total Protein Albumin Arterial Blood Glucose Coronavirus (PCR) 06/14/21 06/14/21 06/14/21 11:44 17:44 21:44 WBC MCV MCH MCHC RDW Lymph % (Auto) [place] % (Auto) Eos % (Auto) Lymph # (Auto) [place] # (Auto) Eos # (Auto) Baso # (Auto) Seg Neutrophils % Seg Neuts % (Manual) Lymphocytes % (Manual) Seg Neutrophils # Seg Neutrophils # Man Lymphocytes # (Manual) D-Dimer ABG pH POC ABG pCO2 POC ABG pO2 ABG pO2 ABG HCO3 ABG O2 Saturation ABG Base Excess ABG Oxyhemoglobin ABG Sodium ABG Chloride ABG Glucose Oxyhemoglobin Carboxyhemoglobin Sodium Potassium Chloride Carbon Dioxide BUN Creatinine Glucose POC Glucose 205 H 293 H 288 H Hemoglobin A1c Magnesium Ferritin AST ALT Alkaline Phosphatase Lactate Dehydrogenase C-Reactive Protein Total Protein Albumin Arterial Blood Glucose Coronavirus (PCR) 06/15/21 06/15/21 06/15/21 08:00 08:00 11:40 WBC MCV MCH 33 H MCHC 35 H RDW 20.3 H Lymph % (Auto) [place] % (Auto) Eos % (Auto) Lymph # (Auto) [place] # (Auto) Eos # (Auto) Baso # (Auto) Seg Neutrophils % Seg Neuts % (Manual) Lymphocytes % (Manual) Seg Neutrophils # Seg Neutrophils # Man Lymphocytes # (Manual) D-Dimer ABG pH POC ABG pCO2 POC ABG pO2 ABG pO2 ABG HCO3 ABG O2 Saturation ABG Base Excess ABG Oxyhemoglobin ABG Sodium ABG Chloride ABG Glucose Oxyhemoglobin Carboxyhemoglobin Sodium Potassium 3.2 L Chloride 95.3 L Carbon Dioxide 32 H BUN 23 H Creatinine 0.2 L Glucose 103 H POC Glucose 204 H Hemoglobin A1c Magnesium Ferritin AST ALT Alkaline Phosphatase Lactate Dehydrogenase C-Reactive Protein Total Protein Albumin Arterial Blood Glucose Coronavirus (PCR) 06/15/21 06/15/21 06/16/21 16:17 22:00 11:43 WBC MCV MCH MCHC RDW Lymph % (Auto) [place] % (Auto) Eos % (Auto) Lymph # (Auto) [place] # (Auto) Eos # (Auto) Baso # (Auto) Seg Neutrophils % Seg Neuts % (Manual) Lymphocytes % (Manual) Seg Neutrophils # Seg Neutrophils # Man Lymphocytes # (Manual) D-Dimer ABG pH POC ABG pCO2 POC ABG pO2 ABG pO2 ABG HCO3 ABG O2 Saturation ABG Base Excess ABG Oxyhemoglobin ABG Sodium ABG Chloride ABG Glucose Oxyhemoglobin Carboxyhemoglobin Sodium Potassium Chloride Carbon Dioxide BUN Creatinine Glucose POC Glucose 295 H 233 H 201 H Hemoglobin A1c Magnesium Ferritin AST ALT Alkaline Phosphatase Lactate Dehydrogenase C-Reactive Protein Total Protein Albumin Arterial Blood Glucose Coronavirus (PCR) 06/16/21 06/16/21 06/17/21 17:21 21:27 07:12 WBC MCV MCH MCHC RDW Lymph % (Auto) [place] % (Auto) Eos % (Auto) Lymph # (Auto) [place] # (Auto) Eos # (Auto) Baso # (Auto) Seg Neutrophils % Seg Neuts % (Manual) Lymphocytes % (Manual) Seg Neutrophils # Seg Neutrophils # Man Lymphocytes # (Manual) D-Dimer ABG pH POC ABG pCO2 POC ABG pO2 ABG pO2 ABG HCO3 ABG O2 Saturation ABG Base Excess ABG Oxyhemoglobin ABG Sodium ABG Chloride ABG Glucose Oxyhemoglobin Carboxyhemoglobin Sodium Potassium Chloride Carbon Dioxide BUN Creatinine Glucose POC Glucose 299 H 290 H 67 L Hemoglobin A1c Magnesium Ferritin AST ALT Alkaline Phosphatase Lactate Dehydrogenase C-Reactive Protein Total Protein Albumin Arterial Blood Glucose Coronavirus (PCR) 06/17/21 06/17/21 06/17/21 11:53 17:02 22:25 WBC MCV MCH MCHC RDW Lymph % (Auto) [place] % (Auto) Eos % (Auto) Lymph # (Auto) [place] # (Auto) Eos # (Auto) Baso # (Auto) Seg Neutrophils % Seg Neuts % (Manual) Lymphocytes % (Manual) Seg Neutrophils # Seg Neutrophils # Man Lymphocytes # (Manual) D-Dimer ABG pH POC ABG pCO2 POC ABG pO2 ABG pO2 ABG HCO3 ABG O2 Saturation ABG Base Excess ABG Oxyhemoglobin ABG Sodium ABG Chloride ABG Glucose Oxyhemoglobin Carboxyhemoglobin Sodium Potassium Chloride Carbon Dioxide BUN Creatinine Glucose POC Glucose 199 H 362 H 235 H Hemoglobin A1c Magnesium Ferritin AST ALT Alkaline Phosphatase Lactate Dehydrogenase C-Reactive Protein Total Protein Albumin Arterial Blood Glucose Coronavirus (PCR) 06/18/21 06/18/21 06/18/21 08:00 11:48 16:40 WBC MCV MCH MCHC RDW Lymph % (Auto) [place] % (Auto) Eos % (Auto) Lymph # (Auto) [place] # (Auto) Eos # (Auto) Baso # (Auto) Seg Neutrophils % Seg Neuts % (Manual) Lymphocytes % (Manual) Seg Neutrophils # Seg Neutrophils # Man Lymphocytes # (Manual) D-Dimer ABG pH POC ABG pCO2 POC ABG pO2 ABG pO2 ABG HCO3 ABG O2 Saturation ABG Base Excess ABG Oxyhemoglobin ABG Sodium ABG Chloride ABG Glucose Oxyhemoglobin Carboxyhemoglobin Sodium Potassium Chloride Carbon Dioxide BUN Creatinine Glucose POC Glucose 62 L 211 H 305 H Hemoglobin A1c Magnesium Ferritin AST ALT Alkaline Phosphatase Lactate Dehydrogenase C-Reactive Protein Total Protein Albumin Arterial Blood Glucose Coronavirus (PCR) 06/18/21 06/19/21 06/19/21 21:26 07:27 11:32 WBC MCV MCH MCHC RDW Lymph % (Auto) [place] % (Auto) Eos % (Auto) Lymph # (Auto) [place] # (Auto) Eos # (Auto) Baso # (Auto) Seg Neutrophils % Seg Neuts % (Manual) Lymphocytes % (Manual) Seg Neutrophils # Seg Neutrophils # Man Lymphocytes # (Manual) D-Dimer ABG pH POC ABG pCO2 POC ABG pO2 ABG pO2 ABG HCO3 ABG O2 Saturation ABG Base Excess ABG Oxyhemoglobin ABG Sodium ABG Chloride ABG Glucose Oxyhemoglobin Carboxyhemoglobin Sodium Potassium Chloride Carbon Dioxide BUN Creatinine Glucose POC Glucose 149 H 60 L 208 H Hemoglobin A1c Magnesium Ferritin AST ALT Alkaline Phosphatase Lactate Dehydrogenase C-Reactive Protein Total Protein Albumin Arterial Blood Glucose Coronavirus (PCR) 06/19/21 06/19/21 06/20/21 16:06 22:28 07:48 WBC MCV MCH MCHC RDW Lymph % (Auto) [place] % (Auto) Eos % (Auto) Lymph # (Auto) [place] # (Auto) Eos # (Auto) Baso # (Auto) Seg Neutrophils % Seg Neuts % (Manual) Lymphocytes % (Manual) Seg Neutrophils # Seg Neutrophils # Man Lymphocytes # (Manual) D-Dimer ABG pH POC ABG pCO2 POC ABG pO2 ABG pO2 ABG HCO3 ABG O2 Saturation ABG Base Excess ABG Oxyhemoglobin ABG Sodium ABG Chloride ABG Glucose Oxyhemoglobin Carboxyhemoglobin Sodium Potassium Chloride Carbon Dioxide BUN Creatinine Glucose POC Glucose 266 H 166 H 58 L Hemoglobin A1c Magnesium Ferritin AST ALT Alkaline Phosphatase Lactate Dehydrogenase C-Reactive Protein Total Protein Albumin Arterial Blood Glucose Coronavirus (PCR) 06/20/21 06/20/21 06/20/21 09:09 11:04 16:01 WBC MCV MCH MCHC RDW Lymph % (Auto) [place] % (Auto) Eos % (Auto) Lymph # (Auto) [place] # (Auto) Eos # (Auto) Baso # (Auto) Seg Neutrophils % Seg Neuts % (Manual) Lymphocytes % (Manual) Seg Neutrophils # Seg Neutrophils # Man Lymphocytes # (Manual) D-Dimer ABG pH POC ABG pCO2 POC ABG pO2 ABG pO2 ABG HCO3 ABG O2 Saturation ABG Base Excess ABG Oxyhemoglobin ABG Sodium ABG Chloride ABG Glucose Oxyhemoglobin Carboxyhemoglobin Sodium Potassium Chloride Carbon Dioxide BUN Creatinine Glucose POC Glucose 146 H 225 H 330 H Hemoglobin A1c Magnesium Ferritin AST ALT Alkaline Phosphatase Lactate Dehydrogenase C-Reactive Protein Total Protein Albumin Arterial Blood Glucose Coronavirus (PCR) 06/20/21 06/21/21 06/21/21 20:46 06:45 06:45 WBC MCV MCH MCHC RDW 20.0 H Lymph % (Auto) [place] % (Auto) Eos % (Auto) Lymph # (Auto) [place] # (Auto) Eos # (Auto) Baso # (Auto) Seg Neutrophils % Seg Neuts % (Manual) Lymphocytes % (Manual) Seg Neutrophils # Seg Neutrophils # Man Lymphocytes # (Manual) D-Dimer ABG pH POC ABG pCO2 POC ABG pO2 ABG pO2 ABG HCO3 ABG O2 Saturation ABG Base Excess ABG Oxyhemoglobin ABG Sodium ABG Chloride ABG Glucose Oxyhemoglobin Carboxyhemoglobin Sodium Potassium 2.9 L* Chloride 95.0 L Carbon Dioxide 31 H BUN 23 H Creatinine 0.2 L Glucose 45 L POC Glucose 215 H Hemoglobin A1c Magnesium Ferritin AST ALT Alkaline Phosphatase Lactate Dehydrogenase C-Reactive Protein Total Protein Albumin Arterial Blood Glucose Coronavirus (PCR) 06/21/21 06/21/21 06/21/21 07:38 09:06 12:40 WBC MCV MCH MCHC RDW Lymph % (Auto) [place] % (Auto) Eos % (Auto) Lymph # (Auto) [place] # (Auto) Eos # (Auto) Baso # (Auto) Seg Neutrophils % Seg Neuts % (Manual) Lymphocytes % (Manual) Seg Neutrophils # Seg Neutrophils # Man Lymphocytes # (Manual) D-Dimer ABG pH POC ABG pCO2 POC ABG pO2 ABG pO2 ABG HCO3 ABG O2 Saturation ABG Base Excess ABG Oxyhemoglobin ABG Sodium ABG Chloride ABG Glucose Oxyhemoglobin Carboxyhemoglobin Sodium Potassium Chloride Carbon Dioxide BUN Creatinine Glucose POC Glucose 50 L 196 H 205 H Hemoglobin A1c Magnesium Ferritin AST ALT Alkaline Phosphatase Lactate Dehydrogenase C-Reactive Protein Total Protein Albumin Arterial Blood Glucose Coronavirus (PCR) 06/21/21 06/22/21 06/22/21 21:36 06:25 07:15 WBC MCV MCH MCHC RDW Lymph % (Auto) [place] % (Auto) Eos % (Auto) Lymph # (Auto) [place] # (Auto) Eos # (Auto) Baso # (Auto) Seg Neutrophils % Seg Neuts % (Manual) Lymphocytes % (Manual) Seg Neutrophils # Seg Neutrophils # Man Lymphocytes # (Manual) D-Dimer ABG pH POC ABG pCO2 POC ABG pO2 ABG pO2 ABG HCO3 ABG O2 Saturation ABG Base Excess ABG Oxyhemoglobin ABG Sodium ABG Chloride ABG Glucose Oxyhemoglobin Carboxyhemoglobin Sodium Potassium Chloride Carbon Dioxide BUN 20 H Creatinine 0.2 L Glucose POC Glucose 245 H 66 L Hemoglobin A1c Magnesium Ferritin AST ALT Alkaline Phosphatase Lactate Dehydrogenase C-Reactive Protein Total Protein Albumin Arterial Blood Glucose Coronavirus (PCR) 06/22/21 06/22/21 06/22/21 11:03 16:07 22:03 WBC MCV MCH MCHC RDW Lymph % (Auto) [place] % (Auto) Eos % (Auto) Lymph # (Auto) [place] # (Auto) Eos # (Auto) Baso # (Auto) Seg Neutrophils % Seg Neuts % (Manual) Lymphocytes % (Manual) Seg Neutrophils # Seg Neutrophils # Man Lymphocytes # (Manual) D-Dimer ABG pH POC ABG pCO2 POC ABG pO2 ABG pO2 ABG HCO3 ABG O2 Saturation ABG Base Excess ABG Oxyhemoglobin ABG Sodium ABG Chloride ABG Glucose Oxyhemoglobin Carboxyhemoglobin Sodium Potassium Chloride Carbon Dioxide BUN Creatinine Glucose POC Glucose 184 H 326 H 138 H Hemoglobin A1c Magnesium Ferritin AST ALT Alkaline Phosphatase Lactate Dehydrogenase C-Reactive Protein Total Protein Albumin Arterial Blood Glucose Coronavirus (PCR) 06/23/21 06/23/21 06/23/21 07:19 10:34 16:35 WBC MCV MCH MCHC RDW Lymph % (Auto) [place] % (Auto) Eos % (Auto) Lymph # (Auto) [place] # (Auto) Eos # (Auto) Baso # (Auto) Seg Neutrophils % Seg Neuts % (Manual) Lymphocytes % (Manual) Seg Neutrophils # Seg Neutrophils # Man Lymphocytes # (Manual) D-Dimer ABG pH POC ABG pCO2 POC ABG pO2 ABG pO2 ABG HCO3 ABG O2 Saturation ABG Base Excess ABG Oxyhemoglobin ABG Sodium ABG Chloride ABG Glucose Oxyhemoglobin Carboxyhemoglobin Sodium Potassium Chloride Carbon Dioxide BUN Creatinine Glucose POC Glucose 69 L 218 H 326 H Hemoglobin A1c Magnesium Ferritin AST ALT Alkaline Phosphatase Lactate Dehydrogenase C-Reactive Protein Total Protein Albumin Arterial Blood Glucose Coronavirus (PCR) 06/23/21 06/24/21 06/24/21 22:44 11:41 16:54 WBC MCV MCH MCHC RDW Lymph % (Auto) [place] % (Auto) Eos % (Auto) Lymph # (Auto) [place] # (Auto) Eos # (Auto) Baso # (Auto) Seg Neutrophils % Seg Neuts % (Manual) Lymphocytes % (Manual) Seg Neutrophils # Seg Neutrophils # Man Lymphocytes # (Manual) D-Dimer ABG pH POC ABG pCO2 POC ABG pO2 ABG pO2 ABG HCO3 ABG O2 Saturation ABG Base Excess ABG Oxyhemoglobin ABG Sodium ABG Chloride ABG Glucose Oxyhemoglobin Carboxyhemoglobin Sodium Potassium Chloride Carbon Dioxide BUN Creatinine Glucose POC Glucose 252 H 217 H 357 H Hemoglobin A1c Magnesium Ferritin AST ALT Alkaline Phosphatase Lactate Dehydrogenase C-Reactive Protein Total Protein Albumin Arterial Blood Glucose Coronavirus (PCR) 06/24/21 06/25/21 06/25/21 20:40 11:51 16:47 WBC MCV MCH MCHC RDW Lymph % (Auto) [place] % (Auto) Eos % (Auto) Lymph # (Auto) [place] # (Auto) Eos # (Auto) Baso # (Auto) Seg Neutrophils % Seg Neuts % (Manual) Lymphocytes % (Manual) Seg Neutrophils # Seg Neutrophils # Man Lymphocytes # (Manual) D-Dimer ABG pH POC ABG pCO2 POC ABG pO2 ABG pO2 ABG HCO3 ABG O2 Saturation ABG Base Excess ABG Oxyhemoglobin ABG Sodium ABG Chloride ABG Glucose Oxyhemoglobin Carboxyhemoglobin Sodium Potassium Chloride Carbon Dioxide BUN Creatinine Glucose POC Glucose 239 H 182 H 229 H Hemoglobin A1c Magnesium Ferritin AST ALT Alkaline Phosphatase Lactate Dehydrogenase C-Reactive Protein Total Protein Albumin Arterial Blood Glucose Coronavirus (PCR) 06/25/21 06/26/21 06/26/21 22:27 07:20 12:19 WBC MCV MCH MCHC RDW Lymph % (Auto) [place] % (Auto) Eos % (Auto) Lymph # (Auto) [place] # (Auto) Eos # (Auto) Baso # (Auto) Seg Neutrophils % Seg Neuts % (Manual) Lymphocytes % (Manual) Seg Neutrophils # Seg Neutrophils # Man Lymphocytes # (Manual) D-Dimer ABG pH POC ABG pCO2 POC ABG pO2 ABG pO2 ABG HCO3 ABG O2 Saturation ABG Base Excess ABG Oxyhemoglobin ABG Sodium ABG Chloride ABG Glucose Oxyhemoglobin Carboxyhemoglobin Sodium Potassium 3.2 L D Chloride Carbon Dioxide BUN 20 H Creatinine 0.3 L Glucose POC Glucose 209 H 273 H Hemoglobin A1c Magnesium Ferritin AST ALT 77 H Alkaline Phosphatase Lactate Dehydrogenase C-Reactive Protein Total Protein Albumin 3.3 L Arterial Blood Glucose Coronavirus (PCR) 06/26/21 06/26/21 06/27/21 16:52 20:55 07:14 WBC MCV MCH MCHC RDW Lymph % (Auto) [place] % (Auto) Eos % (Auto) Lymph # (Auto) [place] # (Auto) Eos # (Auto) Baso # (Auto) Seg Neutrophils % Seg Neuts % (Manual) Lymphocytes % (Manual) Seg Neutrophils # Seg Neutrophils # Man Lymphocytes # (Manual) D-Dimer ABG pH POC ABG pCO2 POC ABG pO2 ABG pO2 ABG HCO3 ABG O2 Saturation ABG Base Excess ABG Oxyhemoglobin ABG Sodium ABG Chloride ABG Glucose Oxyhemoglobin Carboxyhemoglobin Sodium Potassium Chloride Carbon Dioxide 31 H BUN 19 H Creatinine 0.2 L Glucose 112 H POC Glucose 326 H 220 H Hemoglobin A1c Magnesium Ferritin AST ALT Alkaline Phosphatase Lactate Dehydrogenase C-Reactive Protein Total Protein Albumin Arterial Blood Glucose Coronavirus (PCR) 06/27/21 06/27/21 06/27/21 07:29 10:54 15:49 WBC MCV MCH MCHC RDW Lymph % (Auto) [place] % (Auto) Eos % (Auto) Lymph # (Auto) [place] # (Auto) Eos # (Auto) Baso # (Auto) Seg Neutrophils % Seg Neuts % (Manual) Lymphocytes % (Manual) Seg Neutrophils # Seg Neutrophils # Man Lymphocytes # (Manual) D-Dimer ABG pH POC ABG pCO2 POC ABG pO2 ABG pO2 ABG HCO3 ABG O2 Saturation ABG Base Excess ABG Oxyhemoglobin ABG Sodium ABG Chloride ABG Glucose Oxyhemoglobin Carboxyhemoglobin Sodium Potassium Chloride Carbon Dioxide BUN Creatinine Glucose POC Glucose 115 H 228 H 240 H Hemoglobin A1c Magnesium Ferritin AST ALT Alkaline Phosphatase Lactate Dehydrogenase C-Reactive Protein Total Protein Albumin Arterial Blood Glucose Coronavirus (PCR) 06/28/21 06/28/21 06/28/21 05:43 05:43 07:13 WBC MCV MCH 33 H MCHC RDW 19.8 H Lymph % (Auto) [place] % (Auto) Eos % (Auto) Lymph # (Auto) [place] # (Auto) Eos # (Auto) Baso # (Auto) Seg Neutrophils % Seg Neuts % (Manual) Lymphocytes % (Manual) Seg Neutrophils # Seg Neutrophils # Man Lymphocytes # (Manual) D-Dimer ABG pH POC ABG pCO2 POC ABG pO2 ABG pO2 ABG HCO3 ABG O2 Saturation ABG Base Excess ABG Oxyhemoglobin ABG Sodium ABG Chloride ABG Glucose Oxyhemoglobin Carboxyhemoglobin Sodium Potassium 3.3 L Chloride Carbon Dioxide BUN 22 H Creatinine 0.2 L Glucose POC Glucose 69 L Hemoglobin A1c Magnesium Ferritin AST ALT 63 H Alkaline Phosphatase Lactate Dehydrogenase C-Reactive Protein Total Protein Albumin 3.3 L Arterial Blood Glucose Coronavirus (PCR) 06/28/21 06/28/21 06/28/21 12:18 15:37 21:01 WBC MCV MCH MCHC RDW Lymph % (Auto) [place] % (Auto) Eos % (Auto) Lymph # (Auto) [place] # (Auto) Eos # (Auto) Baso # (Auto) Seg Neutrophils % Seg Neuts % (Manual) Lymphocytes % (Manual) Seg Neutrophils # Seg Neutrophils # Man Lymphocytes # (Manual) D-Dimer ABG pH POC ABG pCO2 POC ABG pO2 ABG pO2 ABG HCO3 ABG O2 Saturation ABG Base Excess ABG Oxyhemoglobin ABG Sodium ABG Chloride ABG Glucose Oxyhemoglobin Carboxyhemoglobin Sodium Potassium Chloride Carbon Dioxide BUN Creatinine Glucose POC Glucose 154 H 201 H 191 H Hemoglobin A1c Magnesium Ferritin AST ALT Alkaline Phosphatase Lactate Dehydrogenase C-Reactive Protein Total Protein Albumin Arterial Blood Glucose Coronavirus (PCR) 06/29/21 06/29/21 06/29/21 11:55 15:47 21:06 WBC MCV MCH MCHC RDW Lymph % (Auto) [place] % (Auto) Eos % (Auto) Lymph # (Auto) [place] # (Auto) Eos # (Auto) Baso # (Auto) Seg Neutrophils % Seg Neuts % (Manual) Lymphocytes % (Manual) Seg Neutrophils # Seg Neutrophils # Man Lymphocytes # (Manual) D-Dimer ABG pH POC ABG pCO2 POC ABG pO2 ABG pO2 ABG HCO3 ABG O2 Saturation ABG Base Excess ABG Oxyhemoglobin ABG Sodium ABG Chloride ABG Glucose Oxyhemoglobin Carboxyhemoglobin Sodium Potassium Chloride Carbon Dioxide BUN Creatinine Glucose POC Glucose 238 H 249 H 155 H Hemoglobin A1c Magnesium Ferritin AST ALT Alkaline Phosphatase Lactate Dehydrogenase C-Reactive Protein Total Protein Albumin Arterial Blood Glucose Coronavirus (PCR) 06/30/21 06/30/21 06/30/21 04:00 07:50 11:50 WBC MCV MCH MCHC RDW Lymph % (Auto) [place] % (Auto) Eos % (Auto) Lymph # (Auto) [place] # (Auto) Eos # (Auto) Baso # (Auto) Seg Neutrophils % Seg Neuts % (Manual) Lymphocytes % (Manual) Seg Neutrophils # Seg Neutrophils # Man Lymphocytes # (Manual) D-Dimer ABG pH POC ABG pCO2 POC ABG pO2 ABG pO2 ABG HCO3 ABG O2 Saturation ABG Base Excess ABG Oxyhemoglobin ABG Sodium ABG Chloride ABG Glucose Oxyhemoglobin Carboxyhemoglobin Sodium Potassium 3.5 L Chloride Carbon Dioxide BUN 18 H Creatinine 0.3 L Glucose 111 H POC Glucose 117 H 250 H Hemoglobin A1c Magnesium Ferritin AST ALT Alkaline Phosphatase Lactate Dehydrogenase C-Reactive Protein Total Protein Albumin Arterial Blood Glucose Coronavirus (PCR) 06/30/21 06/30/21 07/01/21 16:05 21:02 07:26 WBC MCV MCH MCHC RDW Lymph % (Auto) [place] % (Auto) Eos % (Auto) Lymph # (Auto) [place] # (Auto) Eos # (Auto) Baso # (Auto) Seg Neutrophils % Seg Neuts % (Manual) Lymphocytes % (Manual) Seg Neutrophils # Seg Neutrophils # Man Lymphocytes # (Manual) D-Dimer ABG pH POC ABG pCO2 POC ABG pO2 ABG pO2 ABG HCO3 ABG O2 Saturation ABG Base Excess ABG Oxyhemoglobin ABG Sodium ABG Chloride ABG Glucose Oxyhemoglobin Carboxyhemoglobin Sodium Potassium Chloride Carbon Dioxide BUN Creatinine Glucose POC Glucose 250 H 217 H 111 H Hemoglobin A1c Magnesium Ferritin AST ALT Alkaline Phosphatase Lactate Dehydrogenase C-Reactive Protein Total Protein Albumin Arterial Blood Glucose Coronavirus (PCR) 07/01/21 07/01/21 07/01/21 11:06 15:48 21:31 WBC MCV MCH MCHC RDW Lymph % (Auto) [place] % (Auto) Eos % (Auto) Lymph # (Auto) [place] # (Auto) Eos # (Auto) Baso # (Auto) Seg Neutrophils % Seg Neuts % (Manual) Lymphocytes % (Manual) Seg Neutrophils # Seg Neutrophils # Man Lymphocytes # (Manual) D-Dimer ABG pH POC ABG pCO2 POC ABG pO2 ABG pO2 ABG HCO3 ABG O2 Saturation ABG Base Excess ABG Oxyhemoglobin ABG Sodium ABG Chloride ABG Glucose Oxyhemoglobin Carboxyhemoglobin Sodium Potassium Chloride Carbon Dioxide BUN Creatinine Glucose POC Glucose 229 H 239 H 199 H Hemoglobin A1c Magnesium Ferritin AST ALT Alkaline Phosphatase Lactate Dehydrogenase C-Reactive Protein Total Protein Albumin Arterial Blood Glucose Coronavirus (PCR) 07/02/21 07/02/21 07/02/21 11:50 16:44 21:49 WBC MCV MCH MCHC RDW Lymph % (Auto) [place] % (Auto) Eos % (Auto) Lymph # (Auto) [place] # (Auto) Eos # (Auto) Baso # (Auto) Seg Neutrophils % Seg Neuts % (Manual) Lymphocytes % (Manual) Seg Neutrophils # Seg Neutrophils # Man Lymphocytes # (Manual) D-Dimer ABG pH POC ABG pCO2 POC ABG pO2 ABG pO2 ABG HCO3 ABG O2 Saturation ABG Base Excess ABG Oxyhemoglobin ABG Sodium ABG Chloride ABG Glucose Oxyhemoglobin Carboxyhemoglobin Sodium Potassium Chloride Carbon Dioxide BUN Creatinine Glucose POC Glucose 230 H 203 H 197 H Hemoglobin A1c Magnesium Ferritin AST ALT Alkaline Phosphatase Lactate Dehydrogenase C-Reactive Protein Total Protein Albumin Arterial Blood Glucose Coronavirus (PCR) 07/03/21 07/03/21 07/03/21 05:46 05:46 11:59 WBC MCV MCH MCHC RDW 19.6 H Lymph % (Auto) [place] % (Auto) Eos % (Auto) Lymph # (Auto) [place] # (Auto) Eos # (Auto) Baso # (Auto) Seg Neutrophils % Seg Neuts % (Manual) Lymphocytes % (Manual) Seg Neutrophils # Seg Neutrophils # Man Lymphocytes # (Manual) D-Dimer ABG pH POC ABG pCO2 POC ABG pO2 ABG pO2 ABG HCO3 ABG O2 Saturation ABG Base Excess ABG Oxyhemoglobin ABG Sodium ABG Chloride ABG Glucose Oxyhemoglobin Carboxyhemoglobin Sodium Potassium 3.2 L Chloride Carbon Dioxide BUN Creatinine 0.3 L Glucose POC Glucose 145 H Hemoglobin A1c Magnesium Ferritin AST ALT Alkaline Phosphatase Lactate Dehydrogenase C-Reactive Protein Total Protein Albumin Arterial Blood Glucose Coronavirus (PCR) 07/03/21 07/03/21 07/04/21 16:40 22:00 06:35 WBC MCV MCH MCHC RDW Lymph % (Auto) [place] % (Auto) Eos % (Auto) Lymph # (Auto) [place] # (Auto) Eos # (Auto) Baso # (Auto) Seg Neutrophils % Seg Neuts % (Manual) Lymphocytes % (Manual) Seg Neutrophils # Seg Neutrophils # Man Lymphocytes # (Manual) D-Dimer ABG pH POC ABG pCO2 POC ABG pO2 ABG pO2 ABG HCO3 ABG O2 Saturation ABG Base Excess ABG Oxyhemoglobin ABG Sodium ABG Chloride ABG Glucose Oxyhemoglobin Carboxyhemoglobin Sodium Potassium Chloride Carbon Dioxide BUN Creatinine 0.3 L Glucose 118 H POC Glucose 176 H 127 H Hemoglobin A1c Magnesium Ferritin AST ALT Alkaline Phosphatase Lactate Dehydrogenase C-Reactive Protein Total Protein Albumin Arterial Blood Glucose Coronavirus (PCR) 07/04/21 07/04/21 07/05/21 12:30 16:38 08:37 WBC MCV MCH MCHC RDW Lymph % (Auto) [place] % (Auto) Eos % (Auto) Lymph # (Auto) [place] # (Auto) Eos # (Auto) Baso # (Auto) Seg Neutrophils % Seg Neuts % (Manual) Lymphocytes % (Manual) Seg Neutrophils # Seg Neutrophils # Man Lymphocytes # (Manual) D-Dimer ABG pH POC ABG pCO2 POC ABG pO2 ABG pO2 ABG HCO3 ABG O2 Saturation ABG Base Excess ABG Oxyhemoglobin ABG Sodium ABG Chloride ABG Glucose Oxyhemoglobin Carboxyhemoglobin Sodium Potassium Chloride Carbon Dioxide BUN Creatinine Glucose POC Glucose 162 H 205 H 115 H Hemoglobin A1c Magnesium Ferritin AST ALT Alkaline Phosphatase Lactate Dehydrogenase C-Reactive Protein Total Protein Albumin Arterial Blood Glucose Coronavirus (PCR) 07/05/21 07/05/21 07/05/21 10:57 16:42 21:14 WBC MCV MCH MCHC RDW Lymph % (Auto) [place] % (Auto) Eos % (Auto) Lymph # (Auto) [place] # (Auto) Eos # (Auto) Baso # (Auto) Seg Neutrophils % Seg Neuts % (Manual) Lymphocytes % (Manual) Seg Neutrophils # Seg Neutrophils # Man Lymphocytes # (Manual) D-Dimer ABG pH POC ABG pCO2 POC ABG pO2 ABG pO2 ABG HCO3 ABG O2 Saturation ABG Base Excess ABG Oxyhemoglobin ABG Sodium ABG Chloride ABG Glucose Oxyhemoglobin Carboxyhemoglobin Sodium Potassium Chloride Carbon Dioxide BUN Creatinine Glucose POC Glucose 151 H 184 H 130 H Hemoglobin A1c Magnesium Ferritin AST ALT Alkaline Phosphatase Lactate Dehydrogenase C-Reactive Protein Total Protein Albumin Arterial Blood Glucose Coronavirus (PCR) 07/06/21 07/06/21 07/06/21 07:31 11:49 16:46 WBC MCV MCH MCHC RDW Lymph % (Auto) [place] % (Auto) Eos % (Auto) Lymph # (Auto) [place] # (Auto) Eos # (Auto) Baso # (Auto) Seg Neutrophils % Seg Neuts % (Manual) Lymphocytes % (Manual) Seg Neutrophils # Seg Neutrophils # Man Lymphocytes # (Manual) D-Dimer ABG pH POC ABG pCO2 POC ABG pO2 ABG pO2 ABG HCO3 ABG O2 Saturation ABG Base Excess ABG Oxyhemoglobin ABG Sodium ABG Chloride ABG Glucose Oxyhemoglobin Carboxyhemoglobin Sodium Potassium Chloride Carbon Dioxide BUN Creatinine Glucose POC Glucose 106 H 173 H 205 H Hemoglobin A1c Magnesium Ferritin AST ALT Alkaline Phosphatase Lactate Dehydrogenase C-Reactive Protein Total Protein Albumin Arterial Blood Glucose Coronavirus (PCR) 07/06/21 07/07/21 07/07/21 21:38 06:00 06:00 WBC 16.1 H MCV MCH MCHC RDW 18.8 H Lymph % (Auto) [place] % (Auto) Eos % (Auto) Lymph # (Auto) [place] # (Auto) 1.1 H Eos # (Auto) Baso # (Auto) 0.2 H Seg Neutrophils % 74.9 H Seg Neuts % (Manual) Lymphocytes % (Manual) Seg Neutrophils # 12.1 H Seg Neutrophils # Man Lymphocytes # (Manual) D-Dimer ABG pH POC ABG pCO2 POC ABG pO2 ABG pO2 ABG HCO3 ABG O2 Saturation ABG Base Excess ABG Oxyhemoglobin ABG Sodium ABG Chloride ABG Glucose Oxyhemoglobin Carboxyhemoglobin Sodium Potassium 3.5 L D Chloride Carbon Dioxide BUN 6 L Creatinine < 0.2 L Glucose 106 H POC Glucose 120 H Hemoglobin A1c Magnesium Ferritin AST ALT Alkaline Phosphatase Lactate Dehydrogenase C-Reactive Protein Total Protein Albumin Arterial Blood Glucose Coronavirus (PCR) 07/07/21 07/07/21 07/07/21 07:10 11:53 15:53 WBC MCV MCH MCHC RDW Lymph % (Auto) [place] % (Auto) Eos % (Auto) Lymph # (Auto) [place] # (Auto) Eos # (Auto) Baso # (Auto) Seg Neutrophils % Seg Neuts % (Manual) Lymphocytes % (Manual) Seg Neutrophils # Seg Neutrophils # Man Lymphocytes # (Manual) D-Dimer ABG pH POC ABG pCO2 POC ABG pO2 ABG pO2 ABG HCO3 ABG O2 Saturation ABG Base Excess ABG Oxyhemoglobin ABG Sodium ABG Chloride ABG Glucose Oxyhemoglobin Carboxyhemoglobin Sodium Potassium Chloride Carbon Dioxide BUN Creatinine Glucose POC Glucose 132 H 169 H 242 H Hemoglobin A1c Magnesium Ferritin AST ALT Alkaline Phosphatase Lactate Dehydrogenase C-Reactive Protein Total Protein Albumin Arterial Blood Glucose Coronavirus (PCR) 07/07/21 07/08/21 07/08/21 21:41 08:09 12:20 WBC MCV MCH MCHC RDW Lymph % (Auto) [place] % (Auto) Eos % (Auto) Lymph # (Auto) [place] # (Auto) Eos # (Auto) Baso # (Auto) Seg Neutrophils % Seg Neuts % (Manual) Lymphocytes % (Manual) Seg Neutrophils # Seg Neutrophils # Man Lymphocytes # (Manual) D-Dimer ABG pH POC ABG pCO2 POC ABG pO2 ABG pO2 ABG HCO3 ABG O2 Saturation ABG Base Excess ABG Oxyhemoglobin ABG Sodium ABG Chloride ABG Glucose Oxyhemoglobin Carboxyhemoglobin Sodium Potassium Chloride Carbon Dioxide BUN Creatinine Glucose POC Glucose 128 H 132 H 179 H Hemoglobin A1c Magnesium Ferritin AST ALT Alkaline Phosphatase Lactate Dehydrogenase C-Reactive Protein Total Protein Albumin Arterial Blood Glucose Coronavirus (PCR) 07/08/21 07/08/21 07/08/21 16:37 21:45 22:44 WBC MCV MCH MCHC RDW Lymph % (Auto) [place] % (Auto) Eos % (Auto) Lymph # (Auto) [place] # (Auto) Eos # (Auto) Baso # (Auto) Seg Neutrophils % Seg Neuts % (Manual) Lymphocytes % (Manual) Seg Neutrophils # Seg Neutrophils # Man Lymphocytes # (Manual) D-Dimer ABG pH POC ABG pCO2 POC ABG pO2 ABG pO2 ABG HCO3 ABG O2 Saturation ABG Base Excess ABG Oxyhemoglobin ABG Sodium ABG Chloride ABG Glucose Oxyhemoglobin Carboxyhemoglobin Sodium Potassium Chloride Carbon Dioxide BUN Creatinine Glucose POC Glucose 192 H 51 L 137 H Hemoglobin A1c Magnesium Ferritin AST ALT Alkaline Phosphatase Lactate Dehydrogenase C-Reactive Protein Total Protein Albumin Arterial Blood Glucose Coronavirus (PCR) 07/09/21 07/09/21 07/09/21 04:45 04:45 04:45 WBC MCV MCH MCHC RDW 18.3 H Lymph % (Auto) [place] % (Auto) Eos % (Auto) Lymph # (Auto) [place] # (Auto) Eos # (Auto) Baso # (Auto) Seg Neutrophils % Seg Neuts % (Manual) 82.0 H Lymphocytes % (Manual) 13.0 L Seg Neutrophils # Seg Neutrophils # Man 7.8 H Lymphocytes # (Manual) D-Dimer 638.35 H ABG pH POC ABG pCO2 POC ABG pO2 ABG pO2 ABG HCO3 ABG O2 Saturation ABG Base Excess ABG Oxyhemoglobin ABG Sodium ABG Chloride ABG Glucose Oxyhemoglobin Carboxyhemoglobin Sodium Potassium Chloride 96.9 L Carbon Dioxide 35 H BUN Creatinine 0.2 L Glucose 135 H POC Glucose Hemoglobin A1c Magnesium Ferritin AST ALT Alkaline Phosphatase Lactate Dehydrogenase C-Reactive Protein 4.30 H Total Protein Albumin Arterial Blood Glucose Coronavirus (PCR) 07/09/21 07/09/21 07/09/21 05:19 07:36 11:16 WBC MCV MCH MCHC RDW Lymph % (Auto) [place] % (Auto) Eos % (Auto) Lymph # (Auto) [place] # (Auto) Eos # (Auto) Baso # (Auto) Seg Neutrophils % Seg Neuts % (Manual) Lymphocytes % (Manual) Seg Neutrophils # Seg Neutrophils # Man Lymphocytes # (Manual) D-Dimer ABG pH POC ABG pCO2 POC ABG pO2 ABG pO2 ABG HCO3 ABG O2 Saturation ABG Base Excess ABG Oxyhemoglobin ABG Sodium ABG Chloride ABG Glucose Oxyhemoglobin Carboxyhemoglobin Sodium Potassium Chloride Carbon Dioxide BUN Creatinine Glucose POC Glucose 135 H 148 H 212 H Hemoglobin A1c Magnesium Ferritin AST ALT Alkaline Phosphatase Lactate Dehydrogenase C-Reactive Protein Total Protein Albumin Arterial Blood Glucose Coronavirus (PCR) 07/09/21 07/09/21 07/10/21 15:21 21:12 05:40 WBC MCV MCH MCHC RDW Lymph % (Auto) [place] % (Auto) Eos % (Auto) Lymph # (Auto) [place] # (Auto) Eos # (Auto) Baso # (Auto) Seg Neutrophils % Seg Neuts % (Manual) Lymphocytes % (Manual) Seg Neutrophils # Seg Neutrophils # Man Lymphocytes # (Manual) D-Dimer ABG pH POC ABG pCO2 POC ABG pO2 ABG pO2 ABG HCO3 ABG O2 Saturation ABG Base Excess ABG Oxyhemoglobin ABG Sodium ABG Chloride ABG Glucose Oxyhemoglobin Carboxyhemoglobin Sodium Potassium 3.3 L Chloride 95.1 L Carbon Dioxide 39 H BUN Creatinine 0.2 L Glucose 122 H POC Glucose 128 H 196 H Hemoglobin A1c Magnesium Ferritin AST ALT Alkaline Phosphatase Lactate Dehydrogenase C-Reactive Protein Total Protein Albumin Arterial Blood Glucose Coronavirus (PCR) 07/10/21 07/10/21 07/10/21 07:38 11:15 16:29 WBC MCV MCH MCHC RDW Lymph % (Auto) [place] % (Auto) Eos % (Auto) Lymph # (Auto) [place] # (Auto) Eos # (Auto) Baso # (Auto) Seg Neutrophils % Seg Neuts % (Manual) Lymphocytes % (Manual) Seg Neutrophils # Seg Neutrophils # Man Lymphocytes # (Manual) D-Dimer ABG pH POC ABG pCO2 POC ABG pO2 ABG pO2 ABG HCO3 ABG O2 Saturation ABG Base Excess ABG Oxyhemoglobin ABG Sodium ABG Chloride ABG Glucose Oxyhemoglobin Carboxyhemoglobin Sodium Potassium Chloride Carbon Dioxide BUN Creatinine Glucose POC Glucose 128 H 175 H 174 H Hemoglobin A1c Magnesium Ferritin AST ALT Alkaline Phosphatase Lactate Dehydrogenase C-Reactive Protein Total Protein Albumin Arterial Blood Glucose Coronavirus (PCR) 07/10/21 07/11/21 07/11/21 20:49 05:50 12:08 WBC MCV MCH MCHC RDW Lymph % (Auto) [place] % (Auto) Eos % (Auto) Lymph # (Auto) [place] # (Auto) Eos # (Auto) Baso # (Auto) Seg Neutrophils % Seg Neuts % (Manual) Lymphocytes % (Manual) Seg Neutrophils # Seg Neutrophils # Man Lymphocytes # (Manual) D-Dimer ABG pH POC ABG pCO2 POC ABG pO2 ABG pO2 ABG HCO3 ABG O2 Saturation ABG Base Excess ABG Oxyhemoglobin ABG Sodium ABG Chloride ABG Glucose Oxyhemoglobin Carboxyhemoglobin Sodium Potassium Chloride 97.3 L Carbon Dioxide 34 H BUN Creatinine 0.2 L Glucose 109 H POC Glucose 142 H 220 H Hemoglobin A1c Magnesium Ferritin AST ALT Alkaline Phosphatase Lactate Dehydrogenase C-Reactive Protein Total Protein Albumin Arterial Blood Glucose Coronavirus (PCR) 07/11/21 07/11/21 07/12/21 17:09 21:55 07:36 WBC MCV MCH MCHC RDW Lymph % (Auto) [place] % (Auto) Eos % (Auto) Lymph # (Auto) [place] # (Auto) Eos # (Auto) Baso # (Auto) Seg Neutrophils % Seg Neuts % (Manual) Lymphocytes % (Manual) Seg Neutrophils # Seg Neutrophils # Man Lymphocytes # (Manual) D-Dimer ABG pH POC ABG pCO2 POC ABG pO2 ABG pO2 ABG HCO3 ABG O2 Saturation ABG Base Excess ABG Oxyhemoglobin ABG Sodium ABG Chloride ABG Glucose Oxyhemoglobin Carboxyhemoglobin Sodium Potassium Chloride Carbon Dioxide BUN Creatinine Glucose POC Glucose 219 H 124 H 114 H Hemoglobin A1c Magnesium Ferritin AST ALT Alkaline Phosphatase Lactate Dehydrogenase C-Reactive Protein Total Protein Albumin Arterial Blood Glucose Coronavirus (PCR) 07/12/21 07/12/21 07/12/21 11:08 15:43 22:20 WBC MCV MCH MCHC RDW Lymph % (Auto) [place] % (Auto) Eos % (Auto) Lymph # (Auto) [place] # (Auto) Eos # (Auto) Baso # (Auto) Seg Neutrophils % Seg Neuts % (Manual) Lymphocytes % (Manual) Seg Neutrophils # Seg Neutrophils # Man Lymphocytes # (Manual) D-Dimer ABG pH POC ABG pCO2 POC ABG pO2 ABG pO2 ABG HCO3 ABG O2 Saturation ABG Base Excess ABG Oxyhemoglobin ABG Sodium ABG Chloride ABG Glucose Oxyhemoglobin Carboxyhemoglobin Sodium Potassium Chloride Carbon Dioxide BUN Creatinine Glucose POC Glucose 195 H 276 H 189 H Hemoglobin A1c Magnesium Ferritin AST ALT Alkaline Phosphatase Lactate Dehydrogenase C-Reactive Protein Total Protein Albumin Arterial Blood Glucose Coronavirus (PCR) 07/13/21 07/13/21 07/13/21 08:01 08:08 10:17 WBC MCV MCH MCHC RDW Lymph % (Auto) [place] % (Auto) Eos % (Auto) Lymph # (Auto) [place] # (Auto) Eos # (Auto) Baso # (Auto) Seg Neutrophils % Seg Neuts % (Manual) Lymphocytes % (Manual) Seg Neutrophils # Seg Neutrophils # Man Lymphocytes # (Manual) D-Dimer ABG pH POC ABG pCO2 POC ABG pO2 ABG pO2 ABG HCO3 ABG O2 Saturation ABG Base Excess ABG Oxyhemoglobin ABG Sodium ABG Chloride ABG Glucose Oxyhemoglobin Carboxyhemoglobin Sodium Potassium Chloride 94.4 L Carbon Dioxide 34 H BUN Creatinine 0.3 L Glucose 149 H POC Glucose 132 H 265 H Hemoglobin A1c Magnesium Ferritin AST ALT Alkaline Phosphatase Lactate Dehydrogenase C-Reactive Protein Total Protein Albumin Arterial Blood Glucose Coronavirus (PCR) 07/13/21 07/13/21 07/14/21 17:58 21:41 07:34 WBC MCV MCH MCHC RDW Lymph % (Auto) [place] % (Auto) Eos % (Auto) Lymph # (Auto) [place] # (Auto) Eos # (Auto) Baso # (Auto) Seg Neutrophils % Seg Neuts % (Manual) Lymphocytes % (Manual) Seg Neutrophils # Seg Neutrophils # Man Lymphocytes # (Manual) D-Dimer ABG pH POC ABG pCO2 POC ABG pO2 ABG pO2 ABG HCO3 ABG O2 Saturation ABG Base Excess ABG Oxyhemoglobin ABG Sodium ABG Chloride ABG Glucose Oxyhemoglobin Carboxyhemoglobin Sodium Potassium Chloride Carbon Dioxide BUN Creatinine Glucose POC Glucose 217 H 223 H 116 H Hemoglobin A1c Magnesium Ferritin AST ALT Alkaline Phosphatase Lactate Dehydrogenase C-Reactive Protein Total Protein Albumin Arterial Blood Glucose Coronavirus (PCR) 07/14/21 07/14/21 07/14/21 10:50 17:33 20:51 WBC MCV MCH MCHC RDW Lymph % (Auto) [place] % (Auto) Eos % (Auto) Lymph # (Auto) [place] # (Auto) Eos # (Auto) Baso # (Auto) Seg Neutrophils % Seg Neuts % (Manual) Lymphocytes % (Manual) Seg Neutrophils # Seg Neutrophils # Man Lymphocytes # (Manual) D-Dimer ABG pH POC ABG pCO2 POC ABG pO2 ABG pO2 ABG HCO3 ABG O2 Saturation ABG Base Excess ABG Oxyhemoglobin ABG Sodium ABG Chloride ABG Glucose Oxyhemoglobin Carboxyhemoglobin Sodium Potassium Chloride Carbon Dioxide BUN Creatinine Glucose POC Glucose 191 H 173 H 132 H Hemoglobin A1c Magnesium Ferritin AST ALT Alkaline Phosphatase Lactate Dehydrogenase C-Reactive Protein Total Protein Albumin Arterial Blood Glucose Coronavirus (PCR) 07/15/21 07/15/21 07/15/21 04:00 07:59 12:31 WBC MCV MCH MCHC RDW Lymph % (Auto) [place] % (Auto) Eos % (Auto) Lymph # (Auto) [place] # (Auto) Eos # (Auto) Baso # (Auto) Seg Neutrophils % Seg Neuts % (Manual) Lymphocytes % (Manual) Seg Neutrophils # Seg Neutrophils # Man Lymphocytes # (Manual) D-Dimer ABG pH POC ABG pCO2 POC ABG pO2 ABG pO2 ABG HCO3 ABG O2 Saturation ABG Base Excess ABG Oxyhemoglobin ABG Sodium ABG Chloride ABG Glucose Oxyhemoglobin Carboxyhemoglobin Sodium Potassium Chloride 96.0 L Carbon Dioxide 32 H BUN Creatinine 0.3 L Glucose 208 H POC Glucose 117 H 195 H Hemoglobin A1c Magnesium Ferritin AST ALT Alkaline Phosphatase Lactate Dehydrogenase C-Reactive Protein Total Protein Albumin Arterial Blood Glucose Coronavirus (PCR) 07/15/21 07/15/21 07/16/21 18:00 20:57 04:40 WBC MCV MCH MCHC RDW 17.1 H Lymph % (Auto) [place] % (Auto) Eos % (Auto) Lymph # (Auto) [place] # (Auto) Eos # (Auto) Baso # (Auto) Seg Neutrophils % Seg Neuts % (Manual) Lymphocytes % (Manual) Seg Neutrophils # Seg Neutrophils # Man Lymphocytes # (Manual) D-Dimer ABG pH POC ABG pCO2 POC ABG pO2 ABG pO2 ABG HCO3 ABG O2 Saturation ABG Base Excess ABG Oxyhemoglobin ABG Sodium ABG Chloride ABG Glucose Oxyhemoglobin Carboxyhemoglobin Sodium Potassium Chloride Carbon Dioxide BUN Creatinine Glucose POC Glucose 217 H 111 H Hemoglobin A1c Magnesium Ferritin AST ALT Alkaline Phosphatase Lactate Dehydrogenase C-Reactive Protein Total Protein Albumin Arterial Blood Glucose Coronavirus (PCR) 07/16/21 07/16/21 07/16/21 04:40 07:08 11:11 WBC MCV MCH MCHC RDW Lymph % (Auto) [place] % (Auto) Eos % (Auto) Lymph # (Auto) [place] # (Auto) Eos # (Auto) Baso # (Auto) Seg Neutrophils % Seg Neuts % (Manual) Lymphocytes % (Manual) Seg Neutrophils # Seg Neutrophils # Man Lymphocytes # (Manual) D-Dimer ABG pH POC ABG pCO2 POC ABG pO2 ABG pO2 ABG HCO3 ABG O2 Saturation ABG Base Excess ABG Oxyhemoglobin ABG Sodium ABG Chloride ABG Glucose Oxyhemoglobin Carboxyhemoglobin Sodium Potassium 3.4 L Chloride 94.6 L Carbon Dioxide 36 H BUN Creatinine < 0.2 L Glucose 101 H POC Glucose 118 H 184 H Hemoglobin A1c Magnesium Ferritin AST ALT Alkaline Phosphatase Lactate Dehydrogenase C-Reactive Protein Total Protein Albumin Arterial Blood Glucose Coronavirus (PCR) 07/16/21 07/16/21 07/17/21 17:29 22:01 08:10 WBC MCV MCH MCHC RDW Lymph % (Auto) [place] % (Auto) Eos % (Auto) Lymph # (Auto) [place] # (Auto) Eos # (Auto) Baso # (Auto) Seg Neutrophils % Seg Neuts % (Manual) Lymphocytes % (Manual) Seg Neutrophils # Seg Neutrophils # Man Lymphocytes # (Manual) D-Dimer ABG pH POC ABG pCO2 POC ABG pO2 ABG pO2 ABG HCO3 ABG O2 Saturation ABG Base Excess ABG Oxyhemoglobin ABG Sodium ABG Chloride ABG Glucose Oxyhemoglobin Carboxyhemoglobin Sodium Potassium Chloride Carbon Dioxide BUN Creatinine Glucose POC Glucose 200 H 147 H 118 H Hemoglobin A1c Magnesium Ferritin AST ALT Alkaline Phosphatase Lactate Dehydrogenase C-Reactive Protein Total Protein Albumin Arterial Blood Glucose Coronavirus (PCR) 07/17/21 07/17/21 07/17/21 11:38 16:24 21:13 WBC MCV MCH MCHC RDW Lymph % (Auto) [place] % (Auto) Eos % (Auto) Lymph # (Auto) [place] # (Auto) Eos # (Auto) Baso # (Auto) Seg Neutrophils % Seg Neuts % (Manual) Lymphocytes % (Manual) Seg Neutrophils # Seg Neutrophils # Man Lymphocytes # (Manual) D-Dimer ABG pH POC ABG pCO2 POC ABG pO2 ABG pO2 ABG HCO3 ABG O2 Saturation ABG Base Excess ABG Oxyhemoglobin ABG Sodium ABG Chloride ABG Glucose Oxyhemoglobin Carboxyhemoglobin Sodium Potassium Chloride Carbon Dioxide BUN Creatinine Glucose POC Glucose 151 H 268 H 115 H Hemoglobin A1c Magnesium Ferritin AST ALT Alkaline Phosphatase Lactate Dehydrogenase C-Reactive Protein Total Protein Albumin Arterial Blood Glucose Coronavirus (PCR) 07/18/21 07/18/21 07/18/21 07:58 12:29 20:24 WBC MCV MCH MCHC RDW Lymph % (Auto) [place] % (Auto) Eos % (Auto) Lymph # (Auto) [place] # (Auto) Eos # (Auto) Baso # (Auto) Seg Neutrophils % Seg Neuts % (Manual) Lymphocytes % (Manual) Seg Neutrophils # Seg Neutrophils # Man Lymphocytes # (Manual) D-Dimer ABG pH POC ABG pCO2 POC ABG pO2 ABG pO2 ABG HCO3 ABG O2 Saturation ABG Base Excess ABG Oxyhemoglobin ABG Sodium ABG Chloride ABG Glucose Oxyhemoglobin Carboxyhemoglobin Sodium Potassium Chloride Carbon Dioxide BUN Creatinine Glucose POC Glucose 135 H 139 H 130 H Hemoglobin A1c Magnesium Ferritin AST ALT Alkaline Phosphatase Lactate Dehydrogenase C-Reactive Protein Total Protein Albumin Arterial Blood Glucose Coronavirus (PCR) 07/19/21 07/19/21 07/19/21 06:55 06:55 07:54 WBC 14.5 H MCV MCH MCHC RDW 17.3 H Lymph % (Auto) 9.6 L [place] % (Auto) Eos % (Auto) Lymph # (Auto) [place] # (Auto) Eos # (Auto) 0.6 H Baso # (Auto) Seg Neutrophils % 80.3 H Seg Neuts % (Manual) Lymphocytes % (Manual) Seg Neutrophils # 11.7 H Seg Neutrophils # Man Lymphocytes # (Manual) D-Dimer ABG pH POC ABG pCO2 67.9 H POC ABG pO2 131.0 H ABG pO2 ABG HCO3 ABG O2 Saturation ABG Base Excess ABG Oxyhemoglobin ABG Sodium ABG Chloride 97.0 L ABG Glucose 133 H Oxyhemoglobin Carboxyhemoglobin Sodium Potassium Chloride 95.3 L Carbon Dioxide 35 H BUN Creatinine < 0.2 L Glucose 138 H POC Glucose Hemoglobin A1c Magnesium Ferritin AST ALT Alkaline Phosphatase Lactate Dehydrogenase C-Reactive Protein Total Protein Albumin Arterial Blood Glucose 133 H Coronavirus (PCR) 07/19/21 07/19/21 07/19/21 08:10 11:43 17:04 WBC MCV MCH MCHC RDW Lymph % (Auto) [place] % (Auto) Eos % (Auto) Lymph # (Auto) [place] # (Auto) Eos # (Auto) Baso # (Auto) Seg Neutrophils % Seg Neuts % (Manual) Lymphocytes % (Manual) Seg Neutrophils # Seg Neutrophils # Man Lymphocytes # (Manual) D-Dimer ABG pH POC ABG pCO2 POC ABG pO2 ABG pO2 ABG HCO3 ABG O2 Saturation ABG Base Excess ABG Oxyhemoglobin ABG Sodium ABG Chloride ABG Glucose Oxyhemoglobin Carboxyhemoglobin Sodium Potassium Chloride Carbon Dioxide BUN Creatinine Glucose POC Glucose 129 H 126 H 108 H Hemoglobin A1c Magnesium Ferritin AST ALT Alkaline Phosphatase Lactate Dehydrogenase C-Reactive Protein Total Protein Albumin Arterial Blood Glucose Coronavirus (PCR) 07/19/21 07/20/21 07/20/21 21:10 04:00 04:00 WBC MCV MCH MCHC RDW 17.0 H Lymph % (Auto) [place] % (Auto) 8.9 H Eos % (Auto) 6.3 H Lymph # (Auto) [place] # (Auto) 0.9 H Eos # (Auto) 0.6 H Baso # (Auto) Seg Neutrophils % 70.2 H Seg Neuts % (Manual) Lymphocytes % (Manual) Seg Neutrophils # Seg Neutrophils # Man Lymphocytes # (Manual) D-Dimer ABG pH POC ABG pCO2 POC ABG pO2 ABG pO2 ABG HCO3 ABG O2 Saturation ABG Base Excess ABG Oxyhemoglobin ABG Sodium ABG Chloride ABG Glucose Oxyhemoglobin Carboxyhemoglobin Sodium Potassium Chloride 96.7 L Carbon Dioxide 36 H BUN Creatinine 0.2 L Glucose 102 H POC Glucose 109 H Hemoglobin A1c Magnesium Ferritin AST ALT Alkaline Phosphatase Lactate Dehydrogenase C-Reactive Protein Total Protein Albumin 3.2 L Arterial Blood Glucose Coronavirus (PCR) 07/20/21 07/20/21 07/20/21 11:15 15:34 17:01 WBC MCV MCH MCHC RDW Lymph % (Auto) [place] % (Auto) Eos % (Auto) Lymph # (Auto) [place] # (Auto) Eos # (Auto) Baso # (Auto) Seg Neutrophils % Seg Neuts % (Manual) Lymphocytes % (Manual) Seg Neutrophils # Seg Neutrophils # Man Lymphocytes # (Manual) D-Dimer ABG pH POC ABG pCO2 POC ABG pO2 ABG pO2 ABG HCO3 ABG O2 Saturation ABG Base Excess ABG Oxyhemoglobin ABG Sodium ABG Chloride ABG Glucose Oxyhemoglobin Carboxyhemoglobin Sodium Potassium Chloride Carbon Dioxide BUN Creatinine Glucose POC Glucose 109 H 152 H 125 H Hemoglobin A1c Magnesium Ferritin AST ALT Alkaline Phosphatase Lactate Dehydrogenase C-Reactive Protein Total Protein Albumin Arterial Blood Glucose Coronavirus (PCR) 07/20/21 07/21/21 07/21/21 21:00 04:48 04:48 WBC 12.8 H MCV MCH MCHC RDW 16.8 H Lymph % (Auto) 9.3 L [place] % (Auto) Eos % (Auto) Lymph # (Auto) [place] # (Auto) 0.9 H Eos # (Auto) Baso # (Auto) Seg Neutrophils % 81.1 H Seg Neuts % (Manual) Lymphocytes % (Manual) Seg Neutrophils # 10.4 H Seg Neutrophils # Man Lymphocytes # (Manual) D-Dimer ABG pH POC ABG pCO2 POC ABG pO2 ABG pO2 ABG HCO3 ABG O2 Saturation ABG Base Excess ABG Oxyhemoglobin ABG Sodium ABG Chloride ABG Glucose Oxyhemoglobin Carboxyhemoglobin Sodium Potassium Chloride 95.4 L Carbon Dioxide 33 H BUN 6 L Creatinine < 0.2 L Glucose 155 H POC Glucose 211 H Hemoglobin A1c Magnesium 1.60 L Ferritin AST ALT Alkaline Phosphatase Lactate Dehydrogenase C-Reactive Protein Total Protein Albumin Arterial Blood Glucose Coronavirus (PCR) 07/21/21 07/21/21 07/21/21 07:52 11:05 17:01 WBC MCV MCH MCHC RDW Lymph % (Auto) [place] % (Auto) Eos % (Auto) Lymph # (Auto) [place] # (Auto) Eos # (Auto) Baso # (Auto) Seg Neutrophils % Seg Neuts % (Manual) Lymphocytes % (Manual) Seg Neutrophils # Seg Neutrophils # Man Lymphocytes # (Manual) D-Dimer ABG pH POC ABG pCO2 POC ABG pO2 ABG pO2 ABG HCO3 ABG O2 Saturation ABG Base Excess ABG Oxyhemoglobin ABG Sodium ABG Chloride ABG Glucose Oxyhemoglobin Carboxyhemoglobin Sodium Potassium Chloride Carbon Dioxide BUN Creatinine Glucose POC Glucose 116 H 207 H 133 H Hemoglobin A1c Magnesium Ferritin AST ALT Alkaline Phosphatase Lactate Dehydrogenase C-Reactive Protein Total Protein Albumin Arterial Blood Glucose Coronavirus (PCR) 07/21/21 07/22/21 07/22/21 21:17 07:55 07:55 WBC MCV MCH MCHC RDW 16.5 H Lymph % (Auto) [place] % (Auto) 8.6 H Eos % (Auto) Lymph # (Auto) [place] # (Auto) Eos # (Auto) Baso # (Auto) Seg Neutrophils % 72.3 H Seg Neuts % (Manual) Lymphocytes % (Manual) Seg Neutrophils # Seg Neutrophils # Man Lymphocytes # (Manual) D-Dimer ABG pH POC ABG pCO2 POC ABG pO2 ABG pO2 ABG HCO3 ABG O2 Saturation ABG Base Excess ABG Oxyhemoglobin ABG Sodium ABG Chloride ABG Glucose Oxyhemoglobin Carboxyhemoglobin Sodium Potassium Chloride 94.6 L Carbon Dioxide 42 H* D BUN 5 L Creatinine < 0.2 L Glucose POC Glucose 152 H Hemoglobin A1c Magnesium Ferritin AST ALT Alkaline Phosphatase Lactate Dehydrogenase C-Reactive Protein Total Protein Albumin Arterial Blood Glucose Coronavirus (PCR) 07/22/21 07/22/21 07/22/21 11:25 12:05 15:40 WBC MCV MCH MCHC RDW Lymph % (Auto) [place] % (Auto) Eos % (Auto) Lymph # (Auto) [place] # (Auto) Eos # (Auto) Baso # (Auto) Seg Neutrophils % Seg Neuts % (Manual) Lymphocytes % (Manual) Seg Neutrophils # Seg Neutrophils # Man Lymphocytes # (Manual) D-Dimer ABG pH 7.338 L POC ABG pCO2 POC ABG pO2 ABG pO2 66.1 L ABG HCO3 45.0 H ABG O2 Saturation 94.2 L ABG Base Excess 15.2 H ABG Oxyhemoglobin ABG Sodium ABG Chloride ABG Glucose Oxyhemoglobin 91.9 L Carboxyhemoglobin Sodium Potassium Chloride Carbon Dioxide BUN Creatinine Glucose POC Glucose 146 H 219 H Hemoglobin A1c Magnesium Ferritin AST ALT Alkaline Phosphatase Lactate Dehydrogenase C-Reactive Protein Total Protein Albumin Arterial Blood Glucose Coronavirus (PCR) 07/22/21 07/23/21 07/23/21 21:26 04:35 04:35 WBC MCV 98 H MCH MCHC RDW 16.2 H Lymph % (Auto) 7.9 L [place] % (Auto) Eos % (Auto) Lymph # (Auto) 0.9 L [place] # (Auto) Eos # (Auto) Baso # (Auto) Seg Neutrophils % 85.3 H Seg Neuts % (Manual) Lymphocytes % (Manual) Seg Neutrophils # 9.2 H Seg Neutrophils # Man Lymphocytes # (Manual) D-Dimer ABG pH POC ABG pCO2 POC ABG pO2 ABG pO2 ABG HCO3 ABG O2 Saturation ABG Base Excess ABG Oxyhemoglobin ABG Sodium ABG Chloride ABG Glucose Oxyhemoglobin Carboxyhemoglobin Sodium Potassium Chloride 93.9 L Carbon Dioxide 44 H* BUN Creatinine < 0.2 L Glucose 149 H POC Glucose 131 H Hemoglobin A1c Magnesium Ferritin AST ALT Alkaline Phosphatase Lactate Dehydrogenase C-Reactive Protein Total Protein Albumin Arterial Blood Glucose Coronavirus (PCR) 07/23/21 07/23/21 07/23/21 07:20 11:34 16:11 WBC MCV MCH MCHC RDW Lymph % (Auto) [place] % (Auto) Eos % (Auto) Lymph # (Auto) [place] # (Auto) Eos # (Auto) Baso # (Auto) Seg Neutrophils % Seg Neuts % (Manual) Lymphocytes % (Manual) Seg Neutrophils # Seg Neutrophils # Man Lymphocytes # (Manual) D-Dimer ABG pH POC ABG pCO2 POC ABG pO2 ABG pO2 ABG HCO3 ABG O2 Saturation ABG Base Excess ABG Oxyhemoglobin ABG Sodium ABG Chloride ABG Glucose Oxyhemoglobin Carboxyhemoglobin Sodium Potassium Chloride Carbon Dioxide BUN Creatinine Glucose POC Glucose 116 H 172 H 110 H Hemoglobin A1c Magnesium Ferritin AST ALT Alkaline Phosphatase Lactate Dehydrogenase C-Reactive Protein Total Protein Albumin Arterial Blood Glucose Coronavirus (PCR) 07/23/21 07/23/21 07/24/21 18:11 21:33 04:10 WBC MCV MCH MCHC RDW Lymph % (Auto) [place] % (Auto) Eos % (Auto) Lymph # (Auto) [place] # (Auto) Eos # (Auto) Baso # (Auto) Seg Neutrophils % Seg Neuts % (Manual) Lymphocytes % (Manual) Seg Neutrophils # Seg Neutrophils # Man Lymphocytes # (Manual) D-Dimer ABG pH POC ABG pCO2 78.3 H POC ABG pO2 80.7 L ABG pO2 ABG HCO3 ABG O2 Saturation ABG Base Excess ABG Oxyhemoglobin ABG Sodium 134.9 L ABG Chloride 89.0 L ABG Glucose 200 H Oxyhemoglobin Carboxyhemoglobin Sodium Potassium 3.5 L D Chloride 92.4 L Carbon Dioxide 42 H* BUN Creatinine < 0.2 L Glucose 123 H POC Glucose 108 H Hemoglobin A1c Magnesium Ferritin AST ALT Alkaline Phosphatase Lactate Dehydrogenase C-Reactive Protein Total Protein Albumin Arterial Blood Glucose 200 H Coronavirus (PCR) 11/07/0407/24/21 07/24/21 11:01 16:56 22:06 WBC MCV MCH MCHC RDW Lymph % (Auto) [place] % (Auto) Eos % (Auto) Lymph # (Auto) [place] # (Auto) Eos # (Auto) Baso # (Auto) Seg Neutrophils % Seg Neuts % (Manual) Lymphocytes % (Manual) Seg Neutrophils # Seg Neutrophils # Man Lymphocytes # (Manual) D-Dimer ABG pH POC ABG pCO2 POC ABG pO2 ABG pO2 ABG HCO3 ABG O2 Saturation ABG Base Excess ABG Oxyhemoglobin ABG Sodium ABG Chloride ABG Glucose Oxyhemoglobin Carboxyhemoglobin Sodium Potassium Chloride Carbon Dioxide BUN Creatinine Glucose POC Glucose 171 H 111 H 136 H Hemoglobin A1c Magnesium Ferritin AST ALT Alkaline Phosphatase Lactate Dehydrogenase C-Reactive Protein Total Protein Albumin Arterial Blood Glucose Coronavirus (PCR) 07/25/21 07/25/21 07/25/21 07:40 10:59 11:58 WBC MCV MCH MCHC RDW Lymph % (Auto) [place] % (Auto) Eos % (Auto) Lymph # (Auto) [place] # (Auto) Eos # (Auto) Baso # (Auto) Seg Neutrophils % Seg Neuts % (Manual) Lymphocytes % (Manual) Seg Neutrophils # Seg Neutrophils # Man Lymphocytes # (Manual) D-Dimer ABG pH POC ABG pCO2 POC ABG pO2 ABG pO2 ABG HCO3 ABG O2 Saturation ABG Base Excess ABG Oxyhemoglobin ABG Sodium ABG Chloride ABG Glucose Oxyhemoglobin Carboxyhemoglobin Sodium Potassium Chloride 88.6 L Carbon Dioxide 43 H* BUN Creatinine 0.2 L Glucose 180 H POC Glucose 120 H 153 H Hemoglobin A1c Magnesium Ferritin AST ALT Alkaline Phosphatase Lactate Dehydrogenase C-Reactive Protein Total Protein Albumin Arterial Blood Glucose Coronavirus (PCR) 07/25/21 07/25/21 07/26/21 16:03 20:18 09:56 WBC MCV MCH MCHC RDW Lymph % (Auto) [place] % (Auto) Eos % (Auto) Lymph # (Auto) [place] # (Auto) Eos # (Auto) Baso # (Auto) Seg Neutrophils % Seg Neuts % (Manual) Lymphocytes % (Manual) Seg Neutrophils # Seg Neutrophils # Man Lymphocytes # (Manual) D-Dimer ABG pH POC ABG pCO2 POC ABG pO2 ABG pO2 ABG HCO3 ABG O2 Saturation ABG Base Excess ABG Oxyhemoglobin ABG Sodium ABG Chloride ABG Glucose Oxyhemoglobin Carboxyhemoglobin Sodium Potassium Chloride 91.3 L Carbon Dioxide 45 H* BUN Creatinine < 0.2 L Glucose 128 H POC Glucose 143 H 133 H Hemoglobin A1c Magnesium Ferritin AST ALT Alkaline Phosphatase Lactate Dehydrogenase C-Reactive Protein Total Protein Albumin 3.2 L Arterial Blood Glucose Coronavirus (PCR) 07/26/21 07/26/21 07/27/21 17:56 21:24 07:10 WBC MCV MCH MCHC RDW Lymph % (Auto) [place] % (Auto) Eos % (Auto) Lymph # (Auto) [place] # (Auto) Eos # (Auto) Baso # (Auto) Seg Neutrophils % Seg Neuts % (Manual) Lymphocytes % (Manual) Seg Neutrophils # Seg Neutrophils # Man Lymphocytes # (Manual) D-Dimer ABG pH POC ABG pCO2 POC ABG pO2 ABG pO2 ABG HCO3 ABG O2 Saturation ABG Base Excess ABG Oxyhemoglobin ABG Sodium ABG Chloride ABG Glucose Oxyhemoglobin Carboxyhemoglobin Sodium Potassium Chloride Carbon Dioxide BUN Creatinine Glucose POC Glucose 170 H 122 H 119 H Hemoglobin A1c Magnesium Ferritin AST ALT Alkaline Phosphatase Lactate Dehydrogenase C-Reactive Protein Total Protein Albumin Arterial Blood Glucose Coronavirus (PCR) 07/27/21 07/27/21 07/28/21 11:44 21:31 07:30 WBC MCV MCH MCHC RDW Lymph % (Auto) [place] % (Auto) Eos % (Auto) Lymph # (Auto) [place] # (Auto) Eos # (Auto) Baso # (Auto) Seg Neutrophils % Seg Neuts % (Manual) Lymphocytes % (Manual) Seg Neutrophils # Seg Neutrophils # Man Lymphocytes # (Manual) D-Dimer ABG pH POC ABG pCO2 POC ABG pO2 ABG pO2 ABG HCO3 ABG O2 Saturation ABG Base Excess ABG Oxyhemoglobin ABG Sodium ABG Chloride ABG Glucose Oxyhemoglobin Carboxyhemoglobin Sodium Potassium 3.4 L D Chloride 91.4 L Carbon Dioxide 39 H BUN Creatinine < 0.2 L Glucose 140 H POC Glucose 176 H 162 H Hemoglobin A1c Magnesium Ferritin AST ALT Alkaline Phosphatase Lactate Dehydrogenase C-Reactive Protein Total Protein Albumin Arterial Blood Glucose Coronavirus (PCR) 07/28/21 07/28/21 07/28/21 08:43 12:25 16:40 WBC MCV MCH MCHC RDW Lymph % (Auto) [place] % (Auto) Eos % (Auto) Lymph # (Auto) [place] # (Auto) Eos # (Auto) Baso # (Auto) Seg Neutrophils % Seg Neuts % (Manual) Lymphocytes % (Manual) Seg Neutrophils # Seg Neutrophils # Man Lymphocytes # (Manual) D-Dimer ABG pH POC ABG pCO2 POC ABG pO2 ABG pO2 ABG HCO3 ABG O2 Saturation ABG Base Excess ABG Oxyhemoglobin ABG Sodium ABG Chloride ABG Glucose Oxyhemoglobin Carboxyhemoglobin Sodium Potassium Chloride Carbon Dioxide BUN Creatinine Glucose POC Glucose 122 H 162 H 234 H Hemoglobin A1c Magnesium Ferritin AST ALT Alkaline Phosphatase Lactate Dehydrogenase C-Reactive Protein Total Protein Albumin Arterial Blood Glucose Coronavirus (PCR) 07/28/21 07/29/21 07/29/21 21:27 04:40 09:51 WBC MCV MCH MCHC RDW Lymph % (Auto) [place] % (Auto) Eos % (Auto) Lymph # (Auto) [place] # (Auto) Eos # (Auto) Baso # (Auto) Seg Neutrophils % Seg Neuts % (Manual) Lymphocytes % (Manual) Seg Neutrophils # Seg Neutrophils # Man Lymphocytes # (Manual) D-Dimer ABG pH POC ABG pCO2 POC ABG pO2 ABG pO2 ABG HCO3 ABG O2 Saturation ABG Base Excess ABG Oxyhemoglobin ABG Sodium ABG Chloride ABG Glucose Oxyhemoglobin Carboxyhemoglobin Sodium Potassium 3.4 L Chloride 92.3 L Carbon Dioxide 40 H BUN Creatinine < 0.2 L Glucose 125 H POC Glucose 155 H 112 H Hemoglobin A1c Magnesium Ferritin AST ALT Alkaline Phosphatase Lactate Dehydrogenase C-Reactive Protein Total Protein Albumin Arterial Blood Glucose Coronavirus (PCR) 07/29/21 07/29/21 07/29/21 12:03 16:39 21:28 WBC MCV MCH MCHC RDW Lymph % (Auto) [place] % (Auto) Eos % (Auto) Lymph # (Auto) [place] # (Auto) Eos # (Auto) Baso # (Auto) Seg Neutrophils % Seg Neuts % (Manual) Lymphocytes % (Manual) Seg Neutrophils # Seg Neutrophils # Man Lymphocytes # (Manual) D-Dimer ABG pH POC ABG pCO2 POC ABG pO2 ABG pO2 ABG HCO3 ABG O2 Saturation ABG Base Excess ABG Oxyhemoglobin ABG Sodium ABG Chloride ABG Glucose Oxyhemoglobin Carboxyhemoglobin Sodium Potassium Chloride Carbon Dioxide BUN Creatinine Glucose POC Glucose 188 H 141 H 130 H Hemoglobin A1c Magnesium Ferritin AST ALT Alkaline Phosphatase Lactate Dehydrogenase C-Reactive Protein Total Protein Albumin Arterial Blood Glucose Coronavirus (PCR) 07/30/21 07/30/21 07/30/21 08:37 11:56 22:25 WBC MCV MCH MCHC RDW Lymph % (Auto) [place] % (Auto) Eos % (Auto) Lymph # (Auto) [place] # (Auto) Eos # (Auto) Baso # (Auto) Seg Neutrophils % Seg Neuts % (Manual) Lymphocytes % (Manual) Seg Neutrophils # Seg Neutrophils # Man Lymphocytes # (Manual) D-Dimer ABG pH POC ABG pCO2 POC ABG pO2 ABG pO2 ABG HCO3 ABG O2 Saturation ABG Base Excess ABG Oxyhemoglobin ABG Sodium ABG Chloride ABG Glucose Oxyhemoglobin Carboxyhemoglobin Sodium Potassium Chloride Carbon Dioxide BUN Creatinine Glucose POC Glucose 133 H 156 H 118 H Hemoglobin A1c Magnesium Ferritin AST ALT Alkaline Phosphatase Lactate Dehydrogenase C-Reactive Protein Total Protein Albumin Arterial Blood Glucose Coronavirus (PCR) 07/31/21 07/31/21 07/31/21 06:43 11:55 16:39 WBC MCV MCH MCHC RDW Lymph % (Auto) [place] % (Auto) Eos % (Auto) Lymph # (Auto) [place] # (Auto) Eos # (Auto) Baso # (Auto) Seg Neutrophils % Seg Neuts % (Manual) Lymphocytes % (Manual) Seg Neutrophils # Seg Neutrophils # Man Lymphocytes # (Manual) D-Dimer ABG pH POC ABG pCO2 POC ABG pO2 ABG pO2 ABG HCO3 ABG O2 Saturation ABG Base Excess ABG Oxyhemoglobin ABG Sodium ABG Chloride ABG Glucose Oxyhemoglobin Carboxyhemoglobin Sodium Potassium Chloride Carbon Dioxide BUN Creatinine Glucose POC Glucose 115 H 114 H 185 H Hemoglobin A1c Magnesium Ferritin AST ALT Alkaline Phosphatase Lactate Dehydrogenase C-Reactive Protein Total Protein Albumin Arterial Blood Glucose Coronavirus (PCR) 07/31/21 08/01/21 08/01/21 23:22 11:35 15:34 WBC MCV MCH MCHC RDW Lymph % (Auto) [place] % (Auto) Eos % (Auto) Lymph # (Auto) [place] # (Auto) Eos # (Auto) Baso # (Auto) Seg Neutrophils % Seg Neuts % (Manual) Lymphocytes % (Manual) Seg Neutrophils # Seg Neutrophils # Man Lymphocytes # (Manual) D-Dimer ABG pH POC ABG pCO2 POC ABG pO2 ABG pO2 ABG HCO3 ABG O2 Saturation ABG Base Excess ABG Oxyhemoglobin ABG Sodium ABG Chloride ABG Glucose Oxyhemoglobin Carboxyhemoglobin Sodium Potassium Chloride Carbon Dioxide BUN Creatinine Glucose POC Glucose 213 H 122 H 142 H Hemoglobin A1c Magnesium Ferritin AST ALT Alkaline Phosphatase Lactate Dehydrogenase C-Reactive Protein Total Protein Albumin Arterial Blood Glucose Coronavirus (PCR) 08/01/21 08/02/21 08/02/21 22:15 07:41 11:58 WBC MCV MCH MCHC RDW Lymph % (Auto) [place] % (Auto) Eos % (Auto) Lymph # (Auto) [place] # (Auto) Eos # (Auto) Baso # (Auto) Seg Neutrophils % Seg Neuts % (Manual) Lymphocytes % (Manual) Seg Neutrophils # Seg Neutrophils # Man Lymphocytes # (Manual) D-Dimer ABG pH POC ABG pCO2 POC ABG pO2 ABG pO2 ABG HCO3 ABG O2 Saturation ABG Base Excess ABG Oxyhemoglobin ABG Sodium ABG Chloride ABG Glucose Oxyhemoglobin Carboxyhemoglobin Sodium Potassium Chloride Carbon Dioxide BUN Creatinine Glucose POC Glucose 121 H 109 H 136 H Hemoglobin A1c Magnesium Ferritin AST ALT Alkaline Phosphatase Lactate Dehydrogenase C-Reactive Protein Total Protein Albumin Arterial Blood Glucose Coronavirus (PCR) 08/02/21 08/03/21 21:19 07:47 WBC MCV MCH MCHC RDW Lymph % (Auto) [place] % (Auto) Eos % (Auto) Lymph # (Auto) [place] # (Auto) Eos # (Auto) Baso # (Auto) Seg Neutrophils % Seg Neuts % (Manual) Lymphocytes % (Manual) Seg Neutrophils # Seg Neutrophils # Man Lymphocytes # (Manual) D-Dimer ABG pH POC ABG pCO2 POC ABG pO2 ABG pO2 ABG HCO3 ABG O2 Saturation ABG Base Excess ABG Oxyhemoglobin ABG Sodium ABG Chloride ABG Glucose Oxyhemoglobin Carboxyhemoglobin Sodium Potassium Chloride Carbon Dioxide BUN Creatinine Glucose POC Glucose 159 H 111 H Hemoglobin A1c Magnesium Ferritin AST ALT Alkaline Phosphatase Lactate Dehydrogenase C-Reactive Protein Total Protein Albumin Arterial Blood Glucose Coronavirus (PCR)
--- NOTE | 2021-08-03 13:35 | Progress Note ---
Assessment and Plan Assessment and plan: #Acute hypoxic/hypercapneic respiratory failure #Severe ARDS -Currently on high flow nasal cannula, currently on 35 L 75% FiO2. Discussing with patient the importance of NIV at night. -trial BiPAP at night -maintain SpO2 >88% -s/p prednisone taper -Pulmonology following, assistance appreciated -encouraged prone positioning; patient has been poorly tolerating it overnight #Metabolic alkalosis -stable -Patient received multiple doses of Lasix over course of hospital stay but may be 2/2 to compensation for hypercapneia #Hypokalemia -will replete and monitor #Heart failure with preserved ejection fraction -TTE: LVEF 55-60% with diastolic dysfunction -will continue to monitor for signs of fluid overload #COVID-19 infection -Continue Covid vitamins #Type 2 diabetes -continue Lantus 5 units daily and sliding scale insulin #Anxiety -Stable -increased xanax dose at patients request #DVT prophylaxis -Lovenox 40 daily #Deconditioning -Will benefit from SNF after prolonged hospital stay #Advanced care planning -Disease education conducted, care plan discussed, diagnoses discussed, prognosis discussed, and patient acknowledges understanding with care plan -Time: +30 minutes Resolved issues #Sepsis secondary to COVID-19 #Iatrogenic diarrhea #Hypomagnesemia #Hyponatremia #Protein calorie malnutrition #Dysuria #Possible UTI Disposition Plan: Continue medical management Total Time Spent with Patient (Minutes): 45 minutes History Interval history: Patient refusing to wear NIV at night despite multiple episodes of explaining importance. Hospitalist Physical - Constitutional Vitals: Temp Pulse Resp BP Pulse Ox 97.6 F 95 H 31 H 131/73 88 08/03/21 08:00 08/03/21 09:00 08/03/21 09:00 08/03/21 09:00 08/03/21 09:40 General appearance: Present: no acute distress, well-nourished, obese, other (Looks tired) - EENT Eyes: Present: PERRL, EOM intact ENT: hearing intact, clear oral mucosa, dentition normal - Neck Neck: Present: supple, normal ROM - Respiratory Respiratory effort: labored Respiratory: bilateral: diminished (On high flow nasal cannula) - Cardiovascular Rhythm: regular Heart Sounds: Present: S1 & S2 - Extremities Extremities: no ischemia, pulses intact, pulses symmetrical, No edema, normal temperature, normal color Peripheral Pulses: within normal limits - Abdominal General gastrointestinal: soft, non-tender, non-distended, normal bowel sounds - Integumentary Integumentary: Present: clear, warm, dry - Psychiatric Psychiatric: appropriate mood/affect, cooperative - Neurologic Neurologic: CNII-XII intact, moves all extremities - Allied Health Allied health notes reviewed: nursing, RT, social work Results - Labs CBC & Chem 7: 07/23/21 04:35 07/29/21 04:40 Labs: Laboratory Last Values WBC 10.8 K/mm3 (4.5-11.0) 07/23/21 04:35 RBC 3.84 M/mm3 (3.65-5.03) 07/23/21 04:35 Hgb 12.1 gm/dl (10.1-14.3) 07/23/21 04:35 Hct 37.6 % (30.3-42.9) 07/23/21 04:35 MCV 98 fl (79-97) H 07/23/21 04:35 MCH 32 pg (28-32) 07/23/21 04:35 MCHC 32 % (30-34) 07/23/21 04:35 RDW 16.2 % (13.2-15.2) H 07/23/21 04:35 Plt Count 367 K/mm3 (140-440) 07/23/21 04:35 Lymph % (Auto) 7.9 % (13.4-35.0) L 07/23/21 04:35 [place] % (Auto) 5.6 % (0.0-7.3) 07/23/21 04:35 Eos % (Auto) 0.8 % (0.0-4.3) 07/23/21 04:35 Baso % (Auto) 0.4 % (0.0-1.8) 07/23/21 04:35 Lymph # (Auto) 0.9 K/mm3 (1.2-5.4) L 07/23/21 04:35 [place] # (Auto) 0.6 K/mm3 (0.0-0.8) 07/23/21 04:35 Eos # (Auto) 0.1 K/mm3 (0.0-0.4) 07/23/21 04:35 Baso # (Auto) 0.0 K/mm3 (0.0-0.1) 07/23/21 04:35 Add Manual Diff Complete 07/09/21 04:45 Total Counted 100 07/09/21 04:45 Seg Neutrophils % 85.3 % (40.0-70.0) H 07/23/21 04:35 Seg Neuts % (Manual) 82.0 % (40.0-70.0) H 07/09/21 04:45 Band Neutrophils % 1.0 % 05/12/21 04:05 Lymphocytes % (Manual) 13.0 % (13.4-35.0) L 07/09/21 04:45 Monocytes % (Manual) 3.0 % (0.0-7.3) 07/09/21 04:45 Eosinophils % (Manual) 2.0 % (0.0-4.3) 07/09/21 04:45 Nucleated RBC % Not Reportable 07/09/21 04:45 Seg Neutrophils # 9.2 K/mm3 (1.8-7.7) H 07/23/21 04:35 Seg Neutrophils # Man 7.8 K/mm3 (1.8-7.7) H 07/09/21 04:45 Band Neutrophils # 0.0 K/mm3 07/09/21 04:45 Lymphocytes # (Manual) 1.2 K/mm3 (1.2-5.4) 07/09/21 04:45 Abs React Lymphs (Man) 0.0 K/mm3 07/09/21 04:45 Monocytes # (Manual) 0.3 K/mm3 (0.0-0.8) 07/09/21 04:45 Eosinophils # (Manual) 0.2 K/mm3 (0.0-0.4) 07/09/21 04:45 Basophils # (Manual) 0.0 K/mm3 (0.0-0.1) 07/09/21 04:45 Metamyelocytes # 0.0 K/mm3 07/09/21 04:45 Myelocytes # 0.0 K/mm3 07/09/21 04:45 Promyelocytes # 0.0 K/mm3 07/09/21 04:45 Blast Cells # 0.0 K/mm3 07/09/21 04:45 WBC Morphology Not Reportable 07/09/21 04:45 Hypersegmented Neuts Not Reportable 07/09/21 04:45 Hyposegmented Neuts Not Reportable 07/09/21 04:45 Hypogranular Neuts Not Reportable 07/09/21 04:45 Smudge Cells Not Reportable 07/09/21 04:45 Toxic Granulation Not Reportable 07/09/21 04:45 Toxic Vacuolation Not Reportable 07/09/21 04:45 Dohle Bodies Not Reportable 07/09/21 04:45 Pelger-Huet Anomaly Not Reportable 07/09/21 04:45 Janelle Rods Not Reportable 07/09/21 04:45 Platelet Estimate Consistent w auto 07/09/21 04:45 Clumped Platelets Not Reportable 07/09/21 04:45 Plt Clumps, EDTA Not Reportable 07/09/21 04:45 Large Platelets Not Reportable 07/09/21 04:45 Giant Platelets Rare 07/09/21 04:45 Platelet Satelliting Not Reportable 07/09/21 04:45 Plt Morphology Comment Not Reportable 07/09/21 04:45 RBC Morphology Not Reportable 07/09/21 04:45 Dimorphic RBCs Not Reportable 07/09/21 04:45 Polychromasia Not Reportable 07/09/21 04:45 Hypochromasia Few 07/09/21 04:45 Poikilocytosis Not Reportable 07/09/21 04:45 Anisocytosis Not Reportable 07/09/21 04:45 Microcytosis Not Reportable 07/09/21 04:45 Macrocytosis Not Reportable 07/09/21 04:45 Spherocytes Not Reportable 07/09/21 04:45 Pappenheimer Bodies Not Reportable 07/09/21 04:45 Sickle Cells Not Reportable 07/09/21 04:45 Target Cells Not Reportable 07/09/21 04:45 Tear Drop Cells Not Reportable 07/09/21 04:45 Ovalocytes Not Reportable 07/09/21 04:45 Stomatocytes 1+ 07/09/21 04:45 Helmet Cells Not Reportable 07/09/21 04:45 Ahuja-Zurich Bodies Not Reportable 07/09/21 04:45 [place] Rings Not Reportable 07/09/21 04:45 Crow Cells Not Reportable 07/09/21 04:45 Bite Cells Not Reportable 07/09/21 04:45 Crenated Cell Not Reportable 07/09/21 04:45 Elliptocytes Not Reportable 07/09/21 04:45 Acanthocytes (Spur) Not Reportable 07/09/21 04:45 Rouleaux Not Reportable 07/09/21 04:45 Hemoglobin C Crystals Not Reportable 07/09/21 04:45 Schistocytes Not Reportable 07/09/21 04:45 Malaria parasites Not Reportable 07/09/21 04:45 Justin Bodies Not Reportable 07/09/21 04:45 Hem Pathologist Commnt No 07/09/21 04:45 D-Dimer 638.35 ng/mlDDU (0-234) H 07/09/21 04:45 ABG pH 7.417 (7.320-7.450) 07/23/21 18:11 POC ABG pCO2 78.3 mmHg (32.0-48.0) H 07/23/21 18:11 ABG pCO2 85.7 mm Hg 07/22/21 12:05 POC ABG pO2 80.7 mmHg (83-108) L 07/23/21 18:11 ABG pO2 66.1 mm Hg (80.0-90.0) L 07/22/21 12:05 POC ABG HCO3 49.3 07/23/21 18:11 ABG HCO3 45.0 mmol/L (20.0-26.0) H 07/22/21 12:05 ABG O2 Saturation 96.7 (0-100) 07/23/21 18:11 ABG O2 Content 16.8 (0.0-44) 07/22/21 12:05 POC ABG Base Excess 20.5 07/23/21 18:11 ABG Base Excess 15.2 mmol/L (-2.0-3.0) H 07/22/21 12:05 ABG Hemoglobin 12.6 (12.0-17.5) 07/23/21 18:11 ABG Oxyhemoglobin 95.7 (94-98) 07/23/21 18:11 ABG Carboxyhemoglobin 1.9 % (0.0-5.0) 07/22/21 12:05 ABG Methemoglobin 0.3 (0.0-1.5) 07/23/21 18:11 ABG Sodium 134.9 mmol/L (136.0-145.0) L 07/23/21 18:11 ABG Potassium 3.9 mmol/L (3.40-4.50) 07/23/21 18:11 ABG Chloride 89.0 mmol/L (98-107) L 07/23/21 18:11 ABG Glucose 200 mg/dL (65-95) H 07/23/21 18:11 Oxyhemoglobin 91.9 % (95.0-99.0) L 07/22/21 12:05 Carboxyhemoglobin 0.7 (0.5-1.5) 07/23/21 18:11 FiO2 100 % 07/22/21 12:05 FiO2 % 100.0 07/23/21 18:11 Sodium 141 mmol/L (137-145) 07/29/21 04:40 Potassium 3.4 mmol/L (3.6-5.0) L 07/29/21 04:40 Chloride 92.3 mmol/L (98-107) L 07/29/21 04:40 Carbon Dioxide 40 mmol/L (22-30) H 07/29/21 04:40 Anion Gap 12 mmol/L 07/29/21 04:40 BUN 8 mg/dL (7-17) 07/29/21 04:40 Creatinine < 0.2 mg/dL (0.6-1.2) L 07/29/21 04:40 Estimated GFR > 60 ml/min 07/29/21 04:40 BUN/Creatinine Ratio 40 % 07/29/21 04:40 Glucose 125 mg/dL (65-100) H 07/29/21 04:40 POC Glucose 202 mg/dL (70-105) H 08/03/21 11:18 Hemoglobin A1c 8.5 % (4-6) H 04/18/21 07:36 Calcium 9.2 mg/dL (8.4-10.2) 07/29/21 04:40 Phosphorus 3.70 mg/dL (2.5-4.5) 07/23/21 04:35 Magnesium 2.10 mg/dL (1.7-2.3) 07/23/21 04:35 Ferritin 155.9 ng/mL (10.0-200.0) 07/09/21 04:45 Total Bilirubin < 0.20 mg/dL (0.1-1.2) 07/26/21 09:56 AST 23 units/L (5-40) 07/26/21 09:56 ALT 25 units/L (7-56) 07/26/21 09:56 Alkaline Phosphatase 69 units/L (35-129) 07/26/21 09:56 Lactate Dehydrogenase 475 units/L (91-180) H 06/05/21 05:26 C-Reactive Protein 4.30 mg/dL (0.00-1.30) H 07/09/21 04:45 NT-Pro-B Natriuret Pep 59.45 pg/mL (0-450) 07/07/21 13:40 Total Protein 8.1 g/dL (6.3-8.2) 07/26/21 09:56 Albumin 3.2 g/dL (3.9-5) L 07/26/21 09:56 Albumin/Globulin Ratio 0.7 % 07/26/21 09:56 Triglycerides < 9 mg/dL (2-149) 05/03/21 04:30 Procalcitonin < 0.05 ng/mL (<0.15) 05/23/21 09:50 Arterial Blood Glucose 200 mg/dL (65-95) H 07/23/21 18:11 Arterial Blood Ionized Calcium 4.6 mg/dL (4.6-5.3) 07/23/21 18:11 Coronavirus (PCR) Negative (Negative) 07/25/21 Unknown Amos/IV: Voiding Method External Female Catheter Active Medications - Current Medications Current Medications: Generic Name Dose Route Start Last Admin Trade Name Freq PRN Reason Stop Dose Admin Acetaminophen 650 mg 07/02/21 17:48 08/02/21 21:21 Acetaminophen 325 Mg Tab PO 650 mg Q4H PRN Administration Pain, Mild (1-3) Albuterol 2.5 mg 04/16/21 13:39 04/21/21 20:39 Albuterol 2.5 Mg/3 Ml Nebu IH 2.5 mg Q4HRT PRN Administration Shortness Of Breath Alprazolam 2 mg 07/29/21 22:00 08/03/21 09:42 Alprazolam 1 Mg Tab PO 2 mg BID TUTU Administration Calcium Carbonate/Glycine 500 mg 07/24/21 10:43 Calcium Carbonate 500 Mg Tab Chew PO BID PRN reflux Cholecalciferol 1,000 unit 04/17/21 10:00 08/03/21 09:41 Cholecalciferol (Vit D3) 1000 Unit (25 Mcg) Tab PO 1,000 unit QDAY TUTU Administration Enoxaparin Sodium 40 mg 05/19/21 22:00 08/02/21 21:22 Enoxaparin 40 Mg/0.4 Ml Inj SUB-Q 40 mg QDAY@2200 TUTU Administration Protocol Ibuprofen 600 mg 07/11/21 11:00 07/26/21 11:10 Ibuprofen 600 Mg Tab PO 600 mg Q6H PRN Administration Ear Pain Insulin Glargine 5 units 07/25/21 10:00 08/03/21 09:42 Insulin Glargine 100 Units/Ml SUB-Q 5 units DAILY TUTU Administration Insulin Human Lispro 0 unit 05/18/21 12:00 08/03/21 09:41 Insulin Lispro 100 Unit/Ml SUB-Q Not Given ACHS [facility] Protocol Ondansetron HCl 4 mg 04/16/21 14:00 05/30/21 10:07 Ondansetron 4 Mg/2 Ml Inj IV 4 mg Q8H PRN Administration Nausea And Vomiting Polyethylene Glycol 17 gm 07/16/21 20:00 Polyethylene Glycol 3350 17 Gm Powder PO QDAY PRN Constipation Sodium Chloride 10 ml 04/16/21 13:39 07/27/21 10:47 Sodium Chloride 0.9% 10 Ml Flush Syringe IV 10 ml PRN PRN Administration LINE FLUSH Zinc Sulfate 220 mg 04/16/21 22:00 08/03/21 09:41 Zinc Sulfate 220 Mg Cap PO 220 mg BID TUTU Administration Nutrition/Malnutrition Assess - Dietary Evaluation Nutrition/Malnutrition Findings: Nutrition Notes Start: 04/23/21 07:41 Freq: Status: Active Protocol: Document 07/03/21 16:54 GB (Rec: 07/03/21 17:11 GB [id number]) Nutrition Notes Initial or Follow up Reassessment Current Diagnosis Respiratory Failure Other Pertinent Diagnosis oral thrush, COVID-19 pneu Current Diet consistent carbohydrate Labs/Tests 07/03: creatinine 0.3, K 3.2 Pertinent Medications Vit C, Vit D3, D5 (PRN), Prednisone, NaCl, Zn Sulfate Height 4 ft 11.84 in Weight 60.3 kg [place] Body Weight (kg) 45.09 BMI 26.1 Weight change and time frame 04/16/21: 74.843kg 05/17/21: 68.1kg 06/16/21: 60.3kg change of -14.54kg for -19.43% in 60 days. Per MD note: pt has been diuresed thorughout stay. Weight Status Overweight Subjective/Other Information MD notes 07/03: pt showing improvement, prednisone weaning down, possible weaning of O2. Last BM: 07/02 PO intake recorded at 50-100% Percent of energy/protein needs met: PO intake of meals meet 75% or greater of EEN Burn Absent Trauma Absent GI Symptoms None Food Allergy No Skin Integrity/Comment skin tear rt/lt buttocks Current % PO Good (75-100%) Minimum of two criteria No #3 Nutrition Diagnosis No nutrition diagnosis at this time Etiology respiratory failure As Evidenced by Signs and Symptoms recovering, good po, weight loss r/t diurese therapy #2 Nutrition Diagnosis Malnutrition Comments: Wt loss due to diurese for most of stay. PO intake is recorded at 75- 100% Etiology acute illness As Evidenced by Signs and Symptoms <50% EER in >5 days, >5% wt loss in 1 month Diagnosis Progress(for reassessment Resolved documentation) #1 Nutrition Diagnosis Inadequate oral intake Etiology ARF As Evidenced by Signs and Symptoms pt continues to meet 100%/93% of kcal/protein needs Diagnosis Progress(for reassessment Resolved documentation) Is patient on ventilator? No Is Patient Ambulatory and/or Out of Bed Yes REE-([place]-St. or-ambulatory/OOB) [ 1491.022 [id number]] Kcal/Kg value to use for calculation 25 Approximate Energy Requirements Using 1508 kcal/Kg Calculation Used for Recommendations Kcal/kg Additional Notes Pro needs 1-1.2g/kg @ 60k -72g/day Fluid needs 1ml/kcal or per MD Nutrition Intervention Change Diet Order: continue Nutrition Support: n/a Add Supplement/Snack (indicate name/kcal n/a /protein ) Goal #1 PO intake of meals to be 75% or greater daily for LOS Goal #2 Weight to stabilize +/-3% current weight for LOS Follow-Up By: 08/07/21 Additional Comments f/u: po intake, weight
[2021-08-03] MEDS: ACETAMINOPHEN 325 MG TAB PO PRN (21:35)
[2021-08-03] MEDS: ENOXAPARIN 40 MG/0.4 ML INJ SUB-Q SCH (21:36)
[2021-08-04] MEDS: CHOLECALCIFEROL (VIT D3) 1000 UNIT (25 mcg) TAB PO SCH (10:26)
[2021-08-04] MEDS: ALPRAZolam 1 MG TAB PO SCH ×2 (10:26→21:57)
[2021-08-04] MEDS: ZINC SULFATE 220 MG CAP PO SCH ×2 (10:26→21:57)
[2021-08-04] MEDS: INSULIN GLARGINE 100 UNITS/ML SUB-Q SCH (10:26)
--- NOTE | 2021-08-04 10:26 | Progress Note ---
Assessment and Plan Assessment and plan: #Acute hypoxic/hypercapneic respiratory failure #Severe ARDS -Currently on high flow nasal cannula, currently on 35 L 75% FiO2. -trial BiPAP at night -maintain SpO2 >88% -s/p prednisone taper -Pulmonology following, assistance appreciated -encouraged prone positioning; patient has been poorly tolerating it overnight #Metabolic alkalosis -stable -Patient received multiple doses of Lasix over course of hospital stay but may be 2/2 to compensation for hypercapneia #Hypokalemia -will replete and monitor #Heart failure with preserved ejection fraction -TTE: LVEF 55-60% with diastolic dysfunction -will continue to monitor for signs of fluid overload #COVID-19 infection -Continue Covid vitamins #Type 2 diabetes -continue Lantus 5 units daily and sliding scale insulin #Anxiety -Stable -increased xanax dose at patients request #DVT prophylaxis -Lovenox 40 daily #Deconditioning -Will benefit from SNF after prolonged hospital stay #Advanced care planning -Disease education conducted, care plan discussed, diagnoses discussed, prognosis discussed, and patient acknowledges understanding with care plan -Time: +30 minutes Resolved issues #Sepsis secondary to COVID-19 #Iatrogenic diarrhea #Hypomagnesemia #Hyponatremia #Protein calorie malnutrition #Dysuria #Possible UTI Disposition Plan: Continue medical management Total Time Spent with Patient (Minutes): 45 minutes History Interval history: No acute events overnight. Hospitalist Physical - Constitutional Vitals: Temp Pulse Resp BP Pulse Ox 98.2 F 97 H 31 H 123/74 99 08/04/21 08:00 08/04/21 06:00 08/04/21 06:00 08/04/21 06:00 08/04/21 08:57 General appearance: Present: no acute distress, well-nourished, obese, other (Looks tired) - EENT Eyes: Present: PERRL, EOM intact ENT: hearing intact, clear oral mucosa, dentition normal - Neck Neck: Present: supple, normal ROM - Respiratory Respiratory effort: labored (On high flow nasal cannula 35 L 75% FiO2) Respiratory: bilateral: diminished - Cardiovascular Rhythm: regular Heart Sounds: Present: S1 & S2 - Extremities Extremities: no ischemia, pulses intact, pulses symmetrical, No edema, normal temperature, normal color Peripheral Pulses: within normal limits - Abdominal General gastrointestinal: soft, non-tender, non-distended, normal bowel sounds - Integumentary Integumentary: Present: clear, warm, dry - Psychiatric Psychiatric: appropriate mood/affect, intact judgment & insight, memory intact, cooperative - Neurologic Neurologic: CNII-XII intact, moves all extremities - Allied Health Allied health notes reviewed: nursing Results - Labs CBC & Chem 7: 07/23/21 04:35 07/29/21 04:40 Labs: Laboratory Last Values WBC 10.8 K/mm3 (4.5-11.0) 07/23/21 04:35 RBC 3.84 M/mm3 (3.65-5.03) 07/23/21 04:35 Hgb 12.1 gm/dl (10.1-14.3) 07/23/21 04:35 Hct 37.6 % (30.3-42.9) 07/23/21 04:35 MCV 98 fl (79-97) H 07/23/21 04:35 MCH 32 pg (28-32) 07/23/21 04:35 MCHC 32 % (30-34) 07/23/21 04:35 RDW 16.2 % (13.2-15.2) H 07/23/21 04:35 Plt Count 367 K/mm3 (140-440) 07/23/21 04:35 Lymph % (Auto) 7.9 % (13.4-35.0) L 07/23/21 04:35 [place] % (Auto) 5.6 % (0.0-7.3) 07/23/21 04:35 Eos % (Auto) 0.8 % (0.0-4.3) 07/23/21 04:35 Baso % (Auto) 0.4 % (0.0-1.8) 07/23/21 04:35 Lymph # (Auto) 0.9 K/mm3 (1.2-5.4) L 07/23/21 04:35 [place] # (Auto) 0.6 K/mm3 (0.0-0.8) 07/23/21 04:35 Eos # (Auto) 0.1 K/mm3 (0.0-0.4) 07/23/21 04:35 Baso # (Auto) 0.0 K/mm3 (0.0-0.1) 07/23/21 04:35 Add Manual Diff Complete 07/09/21 04:45 Total Counted 100 07/09/21 04:45 Seg Neutrophils % 85.3 % (40.0-70.0) H 07/23/21 04:35 Seg Neuts % (Manual) 82.0 % (40.0-70.0) H 07/09/21 04:45 Band Neutrophils % 1.0 % 05/12/21 04:05 Lymphocytes % (Manual) 13.0 % (13.4-35.0) L 07/09/21 04:45 Monocytes % (Manual) 3.0 % (0.0-7.3) 07/09/21 04:45 Eosinophils % (Manual) 2.0 % (0.0-4.3) 07/09/21 04:45 Nucleated RBC % Not Reportable 07/09/21 04:45 Seg Neutrophils # 9.2 K/mm3 (1.8-7.7) H 07/23/21 04:35 Seg Neutrophils # Man 7.8 K/mm3 (1.8-7.7) H 07/09/21 04:45 Band Neutrophils # 0.0 K/mm3 07/09/21 04:45 Lymphocytes # (Manual) 1.2 K/mm3 (1.2-5.4) 07/09/21 04:45 Abs React Lymphs (Man) 0.0 K/mm3 07/09/21 04:45 Monocytes # (Manual) 0.3 K/mm3 (0.0-0.8) 07/09/21 04:45 Eosinophils # (Manual) 0.2 K/mm3 (0.0-0.4) 07/09/21 04:45 Basophils # (Manual) 0.0 K/mm3 (0.0-0.1) 07/09/21 04:45 Metamyelocytes # 0.0 K/mm3 07/09/21 04:45 Myelocytes # 0.0 K/mm3 07/09/21 04:45 Promyelocytes # 0.0 K/mm3 07/09/21 04:45 Blast Cells # 0.0 K/mm3 07/09/21 04:45 WBC Morphology Not Reportable 07/09/21 04:45 Hypersegmented Neuts Not Reportable 07/09/21 04:45 Hyposegmented Neuts Not Reportable 07/09/21 04:45 Hypogranular Neuts Not Reportable 07/09/21 04:45 Smudge Cells Not Reportable 07/09/21 04:45 Toxic Granulation Not Reportable 07/09/21 04:45 Toxic Vacuolation Not Reportable 07/09/21 04:45 Dohle Bodies Not Reportable 07/09/21 04:45 Pelger-Huet Anomaly Not Reportable 07/09/21 04:45 Janelle Rods Not Reportable 07/09/21 04:45 Platelet Estimate Consistent w auto 07/09/21 04:45 Clumped Platelets Not Reportable 07/09/21 04:45 Plt Clumps, EDTA Not Reportable 07/09/21 04:45 Large Platelets Not Reportable 07/09/21 04:45 Giant Platelets Rare 07/09/21 04:45 Platelet Satelliting Not Reportable 07/09/21 04:45 Plt Morphology Comment Not Reportable 07/09/21 04:45 RBC Morphology Not Reportable 07/09/21 04:45 Dimorphic RBCs Not Reportable 07/09/21 04:45 Polychromasia Not Reportable 07/09/21 04:45 Hypochromasia Few 07/09/21 04:45 Poikilocytosis Not Reportable 07/09/21 04:45 Anisocytosis Not Reportable 07/09/21 04:45 Microcytosis Not Reportable 07/09/21 04:45 Macrocytosis Not Reportable 07/09/21 04:45 Spherocytes Not Reportable 07/09/21 04:45 Pappenheimer Bodies Not Reportable 07/09/21 04:45 Sickle Cells Not Reportable 07/09/21 04:45 Target Cells Not Reportable 07/09/21 04:45 Tear Drop Cells Not Reportable 07/09/21 04:45 Ovalocytes Not Reportable 07/09/21 04:45 Stomatocytes 1+ 07/09/21 04:45 Helmet Cells Not Reportable 07/09/21 04:45 [place] Bodies Not Reportable 07/09/21 04:45 [place] Rings Not Reportable 07/09/21 04:45 Crow Cells Not Reportable 07/09/21 04:45 Bite Cells Not Reportable 07/09/21 04:45 Crenated Cell Not Reportable 07/09/21 04:45 Elliptocytes Not Reportable 07/09/21 04:45 Acanthocytes (Spur) Not Reportable 07/09/21 04:45 Rouleaux Not Reportable 07/09/21 04:45 Hemoglobin C Crystals Not Reportable 07/09/21 04:45 Schistocytes Not Reportable 07/09/21 04:45 Malaria parasites Not Reportable 07/09/21 04:45 Justin Bodies Not Reportable 07/09/21 04:45 Hem Pathologist Commnt No 07/09/21 04:45 D-Dimer 638.35 ng/mlDDU (0-234) H 07/09/21 04:45 ABG pH 7.417 (7.320-7.450) 07/23/21 18:11 POC ABG pCO2 78.3 mmHg (32.0-48.0) H 07/23/21 18:11 ABG pCO2 85.7 mm Hg 07/22/21 12:05 POC ABG pO2 80.7 mmHg (83-108) L 07/23/21 18:11 ABG pO2 66.1 mm Hg (80.0-90.0) L 07/22/21 12:05 POC ABG HCO3 49.3 07/23/21 18:11 ABG HCO3 45.0 mmol/L (20.0-26.0) H 07/22/21 12:05 ABG O2 Saturation 96.7 (0-100) 07/23/21 18:11 ABG O2 Content 16.8 (0.0-44) 07/22/21 12:05 POC ABG Base Excess 20.5 07/23/21 18:11 ABG Base Excess 15.2 mmol/L (-2.0-3.0) H 07/22/21 12:05 ABG Hemoglobin 12.6 (12.0-17.5) 07/23/21 18:11 ABG Oxyhemoglobin 95.7 (94-98) 07/23/21 18:11 ABG Carboxyhemoglobin 1.9 % (0.0-5.0) 07/22/21 12:05 ABG Methemoglobin 0.3 (0.0-1.5) 07/23/21 18:11 ABG Sodium 134.9 mmol/L (136.0-145.0) L 07/23/21 18:11 ABG Potassium 3.9 mmol/L (3.40-4.50) 07/23/21 18:11 ABG Chloride 89.0 mmol/L (98-107) L 07/23/21 18:11 ABG Glucose 200 mg/dL (65-95) H 07/23/21 18:11 Oxyhemoglobin 91.9 % (95.0-99.0) L 07/22/21 12:05 Carboxyhemoglobin 0.7 (0.5-1.5) 07/23/21 18:11 FiO2 100 % 07/22/21 12:05 FiO2 % 100.0 07/23/21 18:11 Sodium 141 mmol/L (137-145) 07/29/21 04:40 Potassium 3.4 mmol/L (3.6-5.0) L 07/29/21 04:40 Chloride 92.3 mmol/L (98-107) L 07/29/21 04:40 Carbon Dioxide 40 mmol/L (22-30) H 07/29/21 04:40 Anion Gap 12 mmol/L 07/29/21 04:40 BUN 8 mg/dL (7-17) 07/29/21 04:40 Creatinine < 0.2 mg/dL (0.6-1.2) L 07/29/21 04:40 Estimated GFR > 60 ml/min 07/29/21 04:40 BUN/Creatinine Ratio 40 % 07/29/21 04:40 Glucose 125 mg/dL (65-100) H 07/29/21 04:40 POC Glucose 145 mg/dL (70-105) H 08/04/21 08:05 Hemoglobin A1c 8.5 % (4-6) H 04/18/21 07:36 Calcium 9.2 mg/dL (8.4-10.2) 07/29/21 04:40 Phosphorus 3.70 mg/dL (2.5-4.5) 07/23/21 04:35 Magnesium 2.10 mg/dL (1.7-2.3) 07/23/21 04:35 Ferritin 155.9 ng/mL (10.0-200.0) 07/09/21 04:45 Total Bilirubin < 0.20 mg/dL (0.1-1.2) 07/26/21 09:56 AST 23 units/L (5-40) 07/26/21 09:56 ALT 25 units/L (7-56) 07/26/21 09:56 Alkaline Phosphatase 69 units/L (35-129) 07/26/21 09:56 Lactate Dehydrogenase 475 units/L (91-180) H 06/05/21 05:26 C-Reactive Protein 4.30 mg/dL (0.00-1.30) H 07/09/21 04:45 NT-Pro-B Natriuret Pep 59.45 pg/mL (0-450) 07/07/21 13:40 Total Protein 8.1 g/dL (6.3-8.2) 07/26/21 09:56 Albumin 3.2 g/dL (3.9-5) L 07/26/21 09:56 Albumin/Globulin Ratio 0.7 % 07/26/21 09:56 Triglycerides < 9 mg/dL (2-149) 05/03/21 04:30 Procalcitonin < 0.05 ng/mL (<0.15) 05/23/21 09:50 Arterial Blood Glucose 200 mg/dL (65-95) H 07/23/21 18:11 Arterial Blood Ionized Calcium 4.6 mg/dL (4.6-5.3) 07/23/21 18:11 Coronavirus (PCR) Negative (Negative) 07/25/21 Unknown Amos/IV: Voiding Method External Female Catheter Active Medications - Current Medications Current Medications: Generic Name Dose Route Start Last Admin Trade Name Freq PRN Reason Stop Dose Admin Acetaminophen 650 mg 07/02/21 17:48 08/03/21 21:35 Acetaminophen 325 Mg Tab PO 650 mg Q4H PRN Administration Pain, Mild (1-3) Albuterol 2.5 mg 04/16/21 13:39 04/21/21 20:39 Albuterol 2.5 Mg/3 Ml Nebu IH 2.5 mg Q4HRT PRN Administration Shortness Of Breath Alprazolam 2 mg 07/29/21 22:00 08/03/21 21:36 Alprazolam 1 Mg Tab PO 2 mg BID TUTU Administration Calcium Carbonate/Glycine 500 mg 07/24/21 10:43 Calcium Carbonate 500 Mg Tab Chew PO BID PRN reflux Cholecalciferol 1,000 unit 04/17/21 10:00 08/03/21 09:41 Cholecalciferol (Vit D3) 1000 Unit (25 Mcg) Tab PO 1,000 unit QDAY TUTU Administration Enoxaparin Sodium 40 mg 05/19/21 22:00 08/03/21 21:36 Enoxaparin 40 Mg/0.4 Ml Inj SUB-Q 40 mg QDAY@2200 TUTU Administration Protocol Ibuprofen 600 mg 07/11/21 11:00 07/26/21 11:10 Ibuprofen 600 Mg Tab PO 600 mg Q6H PRN Administration Ear Pain Insulin Glargine 5 units 07/25/21 10:00 08/03/21 09:42 Insulin Glargine 100 Units/Ml SUB-Q 5 units DAILY TUTU Administration Insulin Human Lispro 0 unit 05/18/21 12:00 08/03/21 21:35 Insulin Lispro 100 Unit/Ml SUB-Q Not Given ACHS [facility] Protocol Ondansetron HCl 4 mg 04/16/21 14:00 05/30/21 10:07 Ondansetron 4 Mg/2 Ml Inj IV 4 mg Q8H PRN Administration Nausea And Vomiting Polyethylene Glycol 17 gm 07/16/21 20:00 Polyethylene Glycol 3350 17 Gm Powder PO QDAY PRN Constipation Sodium Chloride 10 ml 04/16/21 13:39 07/27/21 10:47 Sodium Chloride 0.9% 10 Ml Flush Syringe IV 10 ml PRN PRN Administration LINE FLUSH Zinc Sulfate 220 mg 04/16/21 22:00 08/03/21 21:36 Zinc Sulfate 220 Mg Cap PO 220 mg BID TUTU Administration Nutrition/Malnutrition Assess - Dietary Evaluation Nutrition/Malnutrition Findings: Nutrition Notes Start: 04/23/21 07:41 Freq: Status: Active Protocol: Document 07/03/21 16:54 GB (Rec: 07/03/21 17:11 GB [email or web address]) Nutrition Notes Initial or Follow up Reassessment Current Diagnosis Respiratory Failure Other Pertinent Diagnosis oral thrush, COVID-19 pneu Current Diet consistent carbohydrate Labs/Tests 07/03: creatinine 0.3, K 3.2 Pertinent Medications Vit C, Vit D3, D5 (PRN), Prednisone, NaCl, Zn Sulfate Height 4 ft 11.84 in Weight 60.3 kg [place] Body Weight (kg) 45.09 BMI 26.1 Weight change and time frame 04/16/21: 74.843kg 05/17/21: 68.1kg 06/16/21: 60.3kg change of -14.54kg for -19.43% in 60 days. Per MD note: pt has been diuresed thorughout stay. Weight Status Overweight Subjective/Other Information MD notes 07/03: pt showing improvement, prednisone weaning down, possible weaning of O2. Last BM: 07/02 PO intake recorded at 50-100% Percent of energy/protein needs met: PO intake of meals meet 75% or greater of EEN Burn Absent Trauma Absent GI Symptoms None Food Allergy No Skin Integrity/Comment skin tear rt/lt buttocks Current % PO Good (75-100%) Minimum of two criteria No #3 Nutrition Diagnosis No nutrition diagnosis at this time Etiology respiratory failure As Evidenced by Signs and Symptoms recovering, good po, weight loss r/t diurese therapy #2 Nutrition Diagnosis Malnutrition Comments: Wt loss due to diurese for most of stay. PO intake is recorded at 75- 100% Etiology acute illness As Evidenced by Signs and Symptoms <50% EER in >5 days, >5% wt loss in 1 month Diagnosis Progress(for reassessment Resolved documentation) #1 Nutrition Diagnosis Inadequate oral intake Etiology ARF As Evidenced by Signs and Symptoms pt continues to meet 100%/93% of kcal/protein needs Diagnosis Progress(for reassessment Resolved documentation) Is patient on ventilator? No Is Patient Ambulatory and/or Out of Bed Yes REE-([facility]-ambulatory/OOB) [ 1491.022 [id number]] Kcal/Kg value to use for calculation 25 Approximate Energy Requirements Using 1508 kcal/Kg Calculation Used for Recommendations Kcal/kg Additional Notes Pro needs 1-1.2g/kg @ 60k -72g/day Fluid needs 1ml/kcal or per MD Nutrition Intervention Change Diet Order: continue Nutrition Support: n/a Add Supplement/Snack (indicate name/kcal n/a /protein ) Goal #1 PO intake of meals to be 75% or greater daily for LOS Goal #2 Weight to stabilize +/-3% current weight for LOS Follow-Up By: 08/07/21 Additional Comments f/u: po intake, weight
[2021-08-04] MEDS: INSULIN LISPRO 100 UNIT/ML SUB-Q SCH ×4 (10:27→21:55)
[2021-08-04] MEDS: ACETAMINOPHEN 325 MG TAB PO PRN (21:54)
[2021-08-04] MEDS: ENOXAPARIN 40 MG/0.4 ML INJ SUB-Q SCH (21:55)
--- NOTE | 2021-08-05 08:52 | Progress Note ---
Assessment and Plan 50 y/o female with acute respiratory failure secondary to COVID19 pneumonia. 08/05/21: I dropped FiO2 to 65%. Continue to wean for sats >88%. 08/03/21: COntinue supportive measures. Thank you for documenting refusal of NIV at night. Will attempt to speak with patient about anxiety and why she doesn't want to wear the NIV via the language line. 08/02/21: Continue supportive care. pLaced new order for NIV at night. Please document if patient refuses 07/31/21: COntinue to wean FiO2 as tolerated. NIV at night. 07/30/21: Bipap QHS. Please document if patient is refusing this at night. Per nurse she has refused but RT documentation reflects that it was PRN and not needed. Prognosis is still guarded. 07/29/21: Continue to attempt to wean FiO2. Given fluctuations in oxygen requirements, ok with keeping in IMCU. consider using bipap therapy at night if patient will allow. Prognosis still remains guarded. Patient has been here 104 days. 07/21/21: Wean FiO2 as tolerated. Patient has never proned the entire 96 days she has been here. Will continue bipap at night. Hold on lasix again today. Prognosis remains guarded. Has finished steroids and all other experimental COVID drugs with minimal to no improvement. 07/20/21: Give patient a break off of bipap and attempt high flow nasal cannula today. Will feed. Suggest keeping bipap therapy at night. Monitor fluid balance and BP. May need more lasix. 07/19/21: This was not related to stopping steroids as hemodynamically she is stable. Her sats is very good on 90%, I dropped to 85 and will continue to wean. She speaks no greenlandic and is very anxious. This adds to her work of breathing. COntinue to wean FiO2 as tolerated. Will give periodic breaks on bipap therapy. Guarded prognosis. 07/17/21: will stop steroids today. Hold on lasix given marginal blood pressure. Guarded prognosis. 07/15/21: Lasix today. Positive fluid balance all weekend based on I/O. Prone. Wean for sats >88% 07/12/21: Gave lasix 40mg IV again this am. Per charting yesterday was the first net negative day. Suggest PRN diuresis over the weekend as well. My partner is rounding but will likely see as needed. Continue to wean for sats >88% 07/11/21: Lasix 40mg IV this am. Attempt to prone if able. Attempt to achieve daily net negative state. Wean for sats >88%. Guarded prognosis. Will change prednisone to 5mg daily starting tomorrow. 07/09/21: Echo shows diastolic dysfunction. Will given an additional 40 of IV lasix today. Monitor daily and wean aggressively for sats >88% 07/08/21: Worsening CXR, Gave lasix yesterday and will give again today. Suggest checking echo, ekg. Prognosis is poor now with this change. We have seen COVID cause CAD with [place]. 07/05/21: Will monitor over the weekend. Worst case scenario, may need to go back up to Prednisone 20 at least. Prone if able. Unsure why all of sudden oxygen requirement increasing. Will repeat CXR. 07/03/21: Down to 10 of prednisone. Will keep through the weekend and then drop to 5 on Thursday. PT/OT assessment if not done. Suggest maybe weaning flow now given FiO2 down to 50%. Prognosis is still guarded. 07/01/21: Will drop steroids to 10mg daily starting tomorrow. Wean for sats >88%. Prone. PT/OT should be seeing now that oxygen requirement is down more. 06/28/21: Continue to wean as tolerated. Will drop steroids down even further next week. Will see PRN over the weekend. 06/26/21: Will drop steroids down to 20 starting tomorrow. Prone. Continue to wean as tolerated. 06/24/21: Continue Pred, will drop to 20 daily tomorrow. Prone if able. Hopeful they can wean FiO2 more. May need to consider increasing flow for a while. 06/21/21: Continue pred at 40, will decrease likely Thursday/Thursday to 20 daily. Prone if able. Continue to wean as tolerated. Prognosis still remains guarded. 06/20/21: Will drop steroids down to 40 today. Proning. Continue to wean FiO2. 06/18/21: Wean Fio2 for sats >88%. Please encourage proning. Drop steroids down to 40 on . 06/14/21: Continue oral steroid therapy. Will do further weaning next week. Wean for sats >88% and prone as tolerated. Will see as needed over the weekend. 06/13/21: Will change to prednisone 60 daily starting tomorrow. Prone if able and wean for sats >88% 06/11/21: no new recs, will change to oral steroids tomorrow, continue to prone if able and wean for sats >88% 06/10/21: Will change to oral steroids on Thursday to begin prolonged taper 06/06/21: Continue to wean as tolerated, will drop steroids on tomorrow. 06/04/21: Clinically no change. Will drop steroids down the end of this week. 05/31/21: Clinically no change. Not eligible for LTACH. Encourage Proning. Will drop steroids down to 40 q8 05/29/21: No acute changes clinically. Still on HFNC but not really able to wean. Continue to encourage proning. Will drop steroids further on Thursday. 05/27/21: No improvement over the weekend but also no worsening. No other strategies to offer. Please continue to encourage patient to prone. I dropped steroids on yesterday. Will wean more later in the week. 05/24/21: No new recs again for today. Will see as needed over the weekend but follow chart peripherally for changes. 05/22/21: No new recs for today. Prognosis remains guarded. 05/21/21: Wean as tolerated. Prone if able. Guarded prognosis 05/20/21: COntinue current level of care. 05/17/21: Prone if possible. Wean FiO2 for sats >88%. Continue scheduled ativan. Prognosis is very very guarded. Unfunded so not a candidate for LTACH 05/16/21: Prone if willing. Wean FIO2 if patient will allow. Anxiety control. Prognosis still remains very guarded. 05/15/21: Not sure if MAR is accurate but may have only gotten one dose of scheduled anixolytic therapy. Continue proning as tolerated, and wean FiO2 and flow for sats >88%. Prognosi remains very very guarded to poor. 05/14/21: Will discontinue the buspar and make the ativan scheduled but will do q6 as oppose to q4 and attempt to leave parameters for nursing when not to give. If anxiety could be controlled, feel that patient could be weaned further. She has no funding so she is not a candidate for LTACH. Prone if possible. Guarded prognosis. This is her day. 05/13/21: Ordered buspar 10 BID to start with to help with anxiety. Please continue to wean FiO2 as tolerated. Will remind nurse that there is PRN ativan available. Continue higher doses of steroids. Prone if able. 05/12/21: Patient may need something longer acting for anxiety. Per chart has not gotten any ativan in days. Would be ok with either buspar or low dose klonopin bid. COntinue higher doses of steroids as patient seems to be responding. Prone if possible. 05/11/21: Continue high doses of steroids and continue to wean for sats >88%. Please encourage proning. 05/10/21: Will continue this dose of steroid at least through the weekend and assess for improvement. will speak with RT about aggressive weaning. Full dose anticoagulation continues. Very very guarded to poor prognosis. 05/09/21: Going to consider increasing steroids to 125q8, maybe as early as tomorrow. continue full dose anticoagulation. 05/08/21: Continue anticoagulation and steroids. Prone if possible. Anxiety control. No objection to CTA if this can happen. Very very guarded prognosis. 05/07/21: Spoke with IMS, not opposed to full dose anticoagulation. If patient goes back on NRB HFNC combo may need to consider restarting PPN again. Encourage proning. Guarded prognosis. 05/06/21: Continue to wean FiO2 and flow for sats >88%. Tolerating diet now so will stop PPN. Continue anxiety control. Continue IV steroids. Would not object to transfer to COVID floor if bed available. Not sure why she was titrated back up to 100% from 85 as all sats documented in the RT's notes were acceptable. Same for under vital signs as well. 05/03/21: Set back last night from yesterday. Continue bipap therapy for now and attempt HFNC maybe later this afternoon. Continue to use PRN ativan but may need to schedule as she likely took off mask from anxiety. Continue IV steroids. Hold on transfer to COVID Floor. 05/02/21: Continue to wean FiO2 as tolerated for sats >88%. Will continue bipap at night. Patient has no funding so not a candidate for LTACH. Given that she has been stable and not requiring the combo of HFNC and NRB, will consider moving to COVID floor. 05/01/21: Continue to wean FiO2 for sats >88%. A sat of 90 is more than acceptable and oxygen should not be increased for this unless patient desats and remains at a sat lower than 88. Bipap at night to give some form of relief and HFNC during the day. Currently on just this alone which is improvement. Ok with daily diuresis but must monitor renal function and BP closely. She was over diuresed last week and we ended up giving fluid back. Prognosis remains guarded. 04/30/21: Will start CLinimix today for nutritional support, without electrol ytes. Check labs in am. Prone if able. Continue precedx for anxiety. Very very guarded prognosis. Attempting our best to not intubate. 04/29/21: Continue precedex. Continue IV solumedrol. Prone if able. Guarded prognosis. 04/28/21: Continue Precedex. Picc team attempting to place line now. Stable on Bipap. Ordered steroids IV solumedrol to start today. Prognosis remains guarded, still at very high risk for intubation. 04/27/21: Hypotension improving/improved. Hold on any further lasix dosing. Continue precedex to help with anxeity. later today please attempt HFNC with NRB if needed. Attempt to feed if possible. Steroids end today, please order solumedrol 40q8 to start tomorrow (04/28/21). guarded prognosis. 04/26/21: Hypotension today, most likely from precedex use and diuresis that I did the last several days. Will bolus again today. Consider midodrine if BP does not respond. 04/25/21: Lasix again today. Keep PRN ativan for now. Hold on precedex for now. Guarded prognosis. Labs ordered for tomorrow. 04/24/21: Lasix today. Will also start patient on low dose PRN ativan. If this does not help will then try precedex. Guarded prognosis. 04/23/21: Prone as tolerated. No lasix today. Continue decadron. Guarded prognosis. High risk for intubation and high mortality with intubation. 04/19/21: Prone as tolerated during the day and sleep prone at night. Continue IV remdesivir and steroids. Did get actemra. Guarded prognosis. 1. Daily net negative state 2. Prone if possible 3. IV remdesivir. 4. Should be a candidate for Actemra 5. IV steroids 6. Guarded Prognosis Subjective Date of service: 08/05/21 Principal diagnosis: Covid-19 Interval history: satting 100% while asleep on 35 and 75. Objective Vital Signs - 12hr 08/04/21 08/04/21 08/04/21 21:00 22:00 23:00 Temperature Pulse Rate 100 H 100 H 100 H Pulse Rate [ 98 H From Monitor] Respiratory 33 H 35 H 33 H Rate Blood Pressure 115/69 106/69 111/72 O2 Sat by Pulse 98 98 96 Oximetry 08/04/21 08/05/21 08/05/21 23:55 00:00 01:00 Temperature 98.5 F Pulse Rate 100 H 100 H 98 H Pulse Rate [ From Monitor] Respiratory 32 H 32 H 31 H Rate Blood Pressure 111/72 116/67 108/63 O2 Sat by Pulse 97 96 95 Oximetry 08/05/21 08/05/21 08/05/21 02:00 02:02 03:00 Temperature Pulse Rate 97 H 96 H Pulse Rate [ From Monitor] Respiratory 34 H 32 H Rate Blood Pressure 101/61 114/72 O2 Sat by Pulse 94 96 93 Oximetry 08/05/21 08/05/21 08/05/21 04:00 05:00 06:00 Temperature 98.5 F Pulse Rate 98 H 94 H 96 H Pulse Rate [ From Monitor] Respiratory 30 H 34 H 36 H Rate Blood Pressure 121/67 120/75 122/69 O2 Sat by Pulse 92 97 98 Oximetry Constitutional: no acute distress, alert, other (on hiflo o2) Eyes: non-icteric ENT: oropharynx moist Neck: supple Effort: normal Ascultation: Bilateral: diminished breath sounds Cardiovascular: regular rate and rhythm Gastrointestinal: normoactive bowel sounds, soft, non-tender, non-distended Integumentary: normal Extremities: no cyanosis, no edema, pink and warm Neurologic: non-focal exam, pupils equal and round Psychiatric: mood appropriate, affect normal CBC and BMP: 07/23/21 04:35 07/29/21 04:40 ABG, PT/INR, D-dimer: ABG ABG pH 7.417 (7.320-7.450) 07/23/21 18:11 POC ABG pCO2 78.3 mmHg (32.0-48.0) H 07/23/21 18:11 ABG pCO2 85.7 mm Hg 07/22/21 12:05 POC ABG pO2 80.7 mmHg (83-108) L 07/23/21 18:11 ABG pO2 66.1 mm Hg (80.0-90.0) L 07/22/21 12:05 POC ABG HCO3 49.3 07/23/21 18:11 ABG O2 Saturation 96.7 (0-100) 07/23/21 18:11 PT/INR, D-dimer D-Dimer 638.35 ng/mlDDU (0-234) H 07/09/21 04:45 Abnormal lab findings: Abnormal Labs 04/16/21 04/16/21 04/16/21 11:42 11:42 11:42 WBC MCV MCH MCHC RDW 16.1 H Lymph % (Auto) 7.8 L [place] % (Auto) Eos % (Auto) Lymph # (Auto) 0.8 L [place] # (Auto) Eos # (Auto) Baso # (Auto) Seg Neutrophils % 87.7 H Seg Neuts % (Manual) Lymphocytes % (Manual) Seg Neutrophils # 8.5 H Seg Neutrophils # Man Lymphocytes # (Manual) D-Dimer 338.70 H ABG pH POC ABG pCO2 POC ABG pO2 ABG pO2 ABG HCO3 ABG O2 Saturation ABG Base Excess ABG Oxyhemoglobin ABG Sodium ABG Chloride ABG Glucose Oxyhemoglobin Carboxyhemoglobin Sodium Potassium Chloride Carbon Dioxide BUN Creatinine Glucose 194 H POC Glucose Hemoglobin A1c Magnesium Ferritin AST ALT Alkaline Phosphatase Lactate Dehydrogenase C-Reactive Protein Total Protein 8.4 H Albumin 3.8 L Arterial Blood Glucose Coronavirus (PCR) 04/16/21 04/16/21 04/17/21 11:42 11:42 03:50 WBC MCV MCH MCHC RDW 16.0 H Lymph % (Auto) 7.7 L [place] % (Auto) Eos % (Auto) Lymph # (Auto) 0.6 L [place] # (Auto) Eos # (Auto) Baso # (Auto) Seg Neutrophils % 89.8 H Seg Neuts % (Manual) Lymphocytes % (Manual) Seg Neutrophils # Seg Neutrophils # Man Lymphocytes # (Manual) D-Dimer ABG pH POC ABG pCO2 POC ABG pO2 ABG pO2 ABG HCO3 ABG O2 Saturation ABG Base Excess ABG Oxyhemoglobin ABG Sodium ABG Chloride ABG Glucose Oxyhemoglobin Carboxyhemoglobin Sodium Potassium Chloride Carbon Dioxide BUN Creatinine Glucose 195 H POC Glucose Hemoglobin A1c Magnesium Ferritin 254.3 H AST ALT Alkaline Phosphatase Lactate Dehydrogenase 359 H C-Reactive Protein 15.20 H Total Protein Albumin Arterial Blood Glucose Coronavirus (PCR) 04/17/21 04/17/21 04/17/21 03:50 08:26 08:26 WBC MCV MCH MCHC RDW Lymph % (Auto) [place] % (Auto) Eos % (Auto) Lymph # (Auto) [place] # (Auto) Eos # (Auto) Baso # (Auto) Seg Neutrophils % Seg Neuts % (Manual) Lymphocytes % (Manual) Seg Neutrophils # Seg Neutrophils # Man Lymphocytes # (Manual) D-Dimer 262.48 H ABG pH POC ABG pCO2 POC ABG pO2 ABG pO2 ABG HCO3 ABG O2 Saturation ABG Base Excess ABG Oxyhemoglobin ABG Sodium ABG Chloride ABG Glucose Oxyhemoglobin Carboxyhemoglobin Sodium Potassium Chloride Carbon Dioxide BUN 20 H Creatinine 0.5 L Glucose 249 H 225 H POC Glucose Hemoglobin A1c Magnesium Ferritin AST ALT Alkaline Phosphatase Lactate Dehydrogenase 338 H C-Reactive Protein 17.20 H Total Protein Albumin 3.2 L Arterial Blood Glucose Coronavirus (PCR) 04/17/21 04/17/21 04/17/21 08:26 15:04 Unknown WBC MCV MCH MCHC RDW Lymph % (Auto) [place] % (Auto) Eos % (Auto) Lymph # (Auto) [place] # (Auto) Eos # (Auto) Baso # (Auto) Seg Neutrophils % Seg Neuts % (Manual) Lymphocytes % (Manual) Seg Neutrophils # Seg Neutrophils # Man Lymphocytes # (Manual) D-Dimer ABG pH POC ABG pCO2 POC ABG pO2 ABG pO2 ABG HCO3 ABG O2 Saturation ABG Base Excess ABG Oxyhemoglobin ABG Sodium ABG Chloride ABG Glucose Oxyhemoglobin Carboxyhemoglobin Sodium Potassium Chloride Carbon Dioxide BUN 20 H Creatinine 0.5 L Glucose 246 H POC Glucose Hemoglobin A1c Magnesium Ferritin 392.0 H AST ALT Alkaline Phosphatase Lactate Dehydrogenase C-Reactive Protein Total Protein 8.3 H Albumin 3.1 L Arterial Blood Glucose Coronavirus (PCR) Positive A 04/18/21 04/18/21 04/18/21 05:06 05:06 07:36 WBC 11.6 H MCV MCH MCHC RDW 16.1 H Lymph % (Auto) [place] % (Auto) Eos % (Auto) Lymph # (Auto) [place] # (Auto) Eos # (Auto) Baso # (Auto) Seg Neutrophils % Seg Neuts % (Manual) Lymphocytes % (Manual) Seg Neutrophils # Seg Neutrophils # Man Lymphocytes # (Manual) D-Dimer ABG pH POC ABG pCO2 POC ABG pO2 ABG pO2 ABG HCO3 ABG O2 Saturation ABG Base Excess ABG Oxyhemoglobin ABG Sodium ABG Chloride ABG Glucose Oxyhemoglobin Carboxyhemoglobin Sodium Potassium 5.2 H Chloride Carbon Dioxide BUN 22 H Creatinine 0.5 L Glucose 315 H POC Glucose Hemoglobin A1c 8.5 H Magnesium Ferritin AST ALT Alkaline Phosphatase Lactate Dehydrogenase C-Reactive Protein Total Protein Albumin 3.3 L Arterial Blood Glucose Coronavirus (PCR) 04/18/21 04/18/21 04/18/21 11:59 16:43 23:24 WBC MCV MCH MCHC RDW Lymph % (Auto) [place] % (Auto) Eos % (Auto) Lymph # (Auto) [place] # (Auto) Eos # (Auto) Baso # (Auto) Seg Neutrophils % Seg Neuts % (Manual) Lymphocytes % (Manual) Seg Neutrophils # Seg Neutrophils # Man Lymphocytes # (Manual) D-Dimer ABG pH POC ABG pCO2 POC ABG pO2 ABG pO2 ABG HCO3 ABG O2 Saturation ABG Base Excess ABG Oxyhemoglobin ABG Sodium ABG Chloride ABG Glucose Oxyhemoglobin Carboxyhemoglobin Sodium Potassium Chloride Carbon Dioxide BUN Creatinine Glucose POC Glucose 284 H 273 H 290 H Hemoglobin A1c Magnesium Ferritin AST ALT Alkaline Phosphatase Lactate Dehydrogenase C-Reactive Protein Total Protein Albumin Arterial Blood Glucose Coronavirus (PCR) 04/19/21 04/19/21 04/19/21 04:19 04:19 08:10 WBC MCV MCH MCHC RDW 15.7 H Lymph % (Auto) [place] % (Auto) Eos % (Auto) Lymph # (Auto) [place] # (Auto) Eos # (Auto) Baso # (Auto) Seg Neutrophils % Seg Neuts % (Manual) Lymphocytes % (Manual) Seg Neutrophils # Seg Neutrophils # Man Lymphocytes # (Manual) D-Dimer ABG pH POC ABG pCO2 POC ABG pO2 ABG pO2 ABG HCO3 ABG O2 Saturation ABG Base Excess ABG Oxyhemoglobin ABG Sodium ABG Chloride ABG Glucose Oxyhemoglobin Carboxyhemoglobin Sodium Potassium Chloride Carbon Dioxide BUN 27 H Creatinine 0.4 L Glucose 184 H POC Glucose 194 H Hemoglobin A1c Magnesium Ferritin AST ALT Alkaline Phosphatase Lactate Dehydrogenase C-Reactive Protein Total Protein Albumin 3.1 L Arterial Blood Glucose Coronavirus (PCR) 04/19/21 04/19/21 04/19/21 11:38 16:25 22:04 WBC MCV MCH MCHC RDW Lymph % (Auto) [place] % (Auto) Eos % (Auto) Lymph # (Auto) [place] # (Auto) Eos # (Auto) Baso # (Auto) Seg Neutrophils % Seg Neuts % (Manual) Lymphocytes % (Manual) Seg Neutrophils # Seg Neutrophils # Man Lymphocytes # (Manual) D-Dimer ABG pH POC ABG pCO2 POC ABG pO2 ABG pO2 ABG HCO3 ABG O2 Saturation ABG Base Excess ABG Oxyhemoglobin ABG Sodium ABG Chloride ABG Glucose Oxyhemoglobin Carboxyhemoglobin Sodium Potassium Chloride Carbon Dioxide BUN Creatinine Glucose POC Glucose 224 H 297 H 251 H Hemoglobin A1c Magnesium Ferritin AST ALT Alkaline Phosphatase Lactate Dehydrogenase C-Reactive Protein Total Protein Albumin Arterial Blood Glucose Coronavirus (PCR) 04/20/21 04/20/21 04/20/21 05:28 08:43 16:21 WBC MCV MCH MCHC RDW Lymph % (Auto) [place] % (Auto) Eos % (Auto) Lymph # (Auto) [place] # (Auto) Eos # (Auto) Baso # (Auto) Seg Neutrophils % Seg Neuts % (Manual) Lymphocytes % (Manual) Seg Neutrophils # Seg Neutrophils # Man Lymphocytes # (Manual) D-Dimer ABG pH POC ABG pCO2 POC ABG pO2 ABG pO2 ABG HCO3 ABG O2 Saturation ABG Base Excess ABG Oxyhemoglobin ABG Sodium ABG Chloride ABG Glucose Oxyhemoglobin Carboxyhemoglobin Sodium Potassium Chloride Carbon Dioxide BUN 27 H Creatinine Glucose 192 H POC Glucose 173 H 253 H Hemoglobin A1c Magnesium Ferritin AST ALT Alkaline Phosphatase Lactate Dehydrogenase C-Reactive Protein Total Protein Albumin 3.0 L Arterial Blood Glucose Coronavirus (PCR) 04/21/21 04/21/21 04/21/21 07:58 12:05 16:08 WBC MCV MCH MCHC RDW Lymph % (Auto) [place] % (Auto) Eos % (Auto) Lymph # (Auto) [place] # (Auto) Eos # (Auto) Baso # (Auto) Seg Neutrophils % Seg Neuts % (Manual) Lymphocytes % (Manual) Seg Neutrophils # Seg Neutrophils # Man Lymphocytes # (Manual) D-Dimer ABG pH POC ABG pCO2 POC ABG pO2 ABG pO2 ABG HCO3 ABG O2 Saturation ABG Base Excess ABG Oxyhemoglobin ABG Sodium ABG Chloride ABG Glucose Oxyhemoglobin Carboxyhemoglobin Sodium Potassium Chloride Carbon Dioxide BUN Creatinine Glucose POC Glucose 140 H 252 H 214 H Hemoglobin A1c Magnesium Ferritin AST ALT Alkaline Phosphatase Lactate Dehydrogenase C-Reactive Protein Total Protein Albumin Arterial Blood Glucose Coronavirus (PCR) 04/21/21 04/22/21 04/22/21 21:42 08:37 12:01 WBC MCV MCH MCHC RDW Lymph % (Auto) [place] % (Auto) Eos % (Auto) Lymph # (Auto) [place] # (Auto) Eos # (Auto) Baso # (Auto) Seg Neutrophils % Seg Neuts % (Manual) Lymphocytes % (Manual) Seg Neutrophils # Seg Neutrophils # Man Lymphocytes # (Manual) D-Dimer ABG pH 7.457 H POC ABG pCO2 POC ABG pO2 49.4 L ABG pO2 ABG HCO3 ABG O2 Saturation ABG Base Excess ABG Oxyhemoglobin 85.6 L ABG Sodium ABG Chloride ABG Glucose 121 H Oxyhemoglobin Carboxyhemoglobin 0.3 L Sodium Potassium Chloride Carbon Dioxide BUN Creatinine Glucose POC Glucose 162 H 227 H Hemoglobin A1c Magnesium Ferritin AST ALT Alkaline Phosphatase Lactate Dehydrogenase C-Reactive Protein Total Protein Albumin Arterial Blood Glucose 121 H Coronavirus (PCR) 04/22/21 04/22/21 04/23/21 16:26 22:23 04:52 WBC MCV MCH MCHC RDW 15.7 H Lymph % (Auto) [place] % (Auto) Eos % (Auto) Lymph # (Auto) [place] # (Auto) Eos # (Auto) Baso # (Auto) Seg Neutrophils % Seg Neuts % (Manual) Lymphocytes % (Manual) Seg Neutrophils # Seg Neutrophils # Man Lymphocytes # (Manual) D-Dimer ABG pH POC ABG pCO2 POC ABG pO2 ABG pO2 ABG HCO3 ABG O2 Saturation ABG Base Excess ABG Oxyhemoglobin ABG Sodium ABG Chloride ABG Glucose Oxyhemoglobin Carboxyhemoglobin Sodium Potassium Chloride Carbon Dioxide BUN Creatinine Glucose POC Glucose 200 H 136 H Hemoglobin A1c Magnesium Ferritin AST ALT Alkaline Phosphatase Lactate Dehydrogenase C-Reactive Protein Total Protein Albumin Arterial Blood Glucose Coronavirus (PCR) 04/23/21 04/23/21 04/23/21 04:52 12:06 17:41 WBC MCV MCH MCHC RDW Lymph % (Auto) [place] % (Auto) Eos % (Auto) Lymph # (Auto) [place] # (Auto) Eos # (Auto) Baso # (Auto) Seg Neutrophils % Seg Neuts % (Manual) Lymphocytes % (Manual) Seg Neutrophils # Seg Neutrophils # Man Lymphocytes # (Manual) D-Dimer ABG pH POC ABG pCO2 POC ABG pO2 ABG pO2 ABG HCO3 ABG O2 Saturation ABG Base Excess ABG Oxyhemoglobin ABG Sodium ABG Chloride ABG Glucose Oxyhemoglobin Carboxyhemoglobin Sodium 136 L Potassium Chloride 97.7 L Carbon Dioxide BUN 23 H Creatinine Glucose 101 H POC Glucose 202 H 169 H Hemoglobin A1c Magnesium Ferritin AST 46 H ALT Alkaline Phosphatase Lactate Dehydrogenase C-Reactive Protein Total Protein Albumin 3.3 L Arterial Blood Glucose Coronavirus (PCR) 04/23/21 04/24/21 04/24/21 23:08 05:17 08:38 WBC MCV MCH MCHC RDW Lymph % (Auto) [place] % (Auto) Eos % (Auto) Lymph # (Auto) [place] # (Auto) Eos # (Auto) Baso # (Auto) Seg Neutrophils % Seg Neuts % (Manual) Lymphocytes % (Manual) Seg Neutrophils # Seg Neutrophils # Man Lymphocytes # (Manual) D-Dimer ABG pH POC ABG pCO2 POC ABG pO2 ABG pO2 ABG HCO3 ABG O2 Saturation ABG Base Excess ABG Oxyhemoglobin ABG Sodium ABG Chloride ABG Glucose Oxyhemoglobin Carboxyhemoglobin Sodium Potassium Chloride Carbon Dioxide BUN Creatinine Glucose POC Glucose 111 H 108 H 126 H Hemoglobin A1c Magnesium Ferritin AST ALT Alkaline Phosphatase Lactate Dehydrogenase C-Reactive Protein Total Protein Albumin Arterial Blood Glucose Coronavirus (PCR) 04/24/21 04/24/21 04/24/21 11:54 17:57 21:23 WBC MCV MCH MCHC RDW Lymph % (Auto) [place] % (Auto) Eos % (Auto) Lymph # (Auto) [place] # (Auto) Eos # (Auto) Baso # (Auto) Seg Neutrophils % Seg Neuts % (Manual) Lymphocytes % (Manual) Seg Neutrophils # Seg Neutrophils # Man Lymphocytes # (Manual) D-Dimer ABG pH POC ABG pCO2 POC ABG pO2 ABG pO2 ABG HCO3 ABG O2 Saturation ABG Base Excess ABG Oxyhemoglobin ABG Sodium ABG Chloride ABG Glucose Oxyhemoglobin Carboxyhemoglobin Sodium Potassium Chloride Carbon Dioxide BUN Creatinine Glucose POC Glucose 147 H 177 H 138 H Hemoglobin A1c Magnesium Ferritin AST ALT Alkaline Phosphatase Lactate Dehydrogenase C-Reactive Protein Total Protein Albumin Arterial Blood Glucose Coronavirus (PCR) 04/25/21 04/25/21 04/25/21 07:06 11:23 15:43 WBC MCV MCH MCHC RDW Lymph % (Auto) [place] % (Auto) Eos % (Auto) Lymph # (Auto) [place] # (Auto) Eos # (Auto) Baso # (Auto) Seg Neutrophils % Seg Neuts % (Manual) Lymphocytes % (Manual) Seg Neutrophils # Seg Neutrophils # Man Lymphocytes # (Manual) D-Dimer ABG pH POC ABG pCO2 POC ABG pO2 ABG pO2 ABG HCO3 ABG O2 Saturation ABG Base Excess ABG Oxyhemoglobin ABG Sodium ABG Chloride ABG Glucose Oxyhemoglobin Carboxyhemoglobin Sodium Potassium Chloride Carbon Dioxide BUN Creatinine Glucose POC Glucose 147 H 169 H 227 H Hemoglobin A1c Magnesium Ferritin AST ALT Alkaline Phosphatase Lactate Dehydrogenase C-Reactive Protein Total Protein Albumin Arterial Blood Glucose Coronavirus (PCR) 04/25/21 04/26/21 04/26/21 21:22 02:45 05:15 WBC MCV MCH MCHC RDW Lymph % (Auto) [place] % (Auto) Eos % (Auto) Lymph # (Auto) [place] # (Auto) Eos # (Auto) Baso # (Auto) Seg Neutrophils % Seg Neuts % (Manual) Lymphocytes % (Manual) Seg Neutrophils # Seg Neutrophils # Man Lymphocytes # (Manual) D-Dimer ABG pH POC ABG pCO2 POC ABG pO2 70.7 L ABG pO2 ABG HCO3 ABG O2 Saturation ABG Base Excess ABG Oxyhemoglobin 93.0 L ABG Sodium 132.7 L ABG Chloride ABG Glucose 115 H Oxyhemoglobin Carboxyhemoglobin Sodium Potassium Chloride 95.8 L Carbon Dioxide 32 H BUN 20 H Creatinine Glucose 102 H POC Glucose 196 H Hemoglobin A1c Magnesium Ferritin AST ALT Alkaline Phosphatase Lactate Dehydrogenase C-Reactive Protein Total Protein Albumin Arterial Blood Glucose 115 H Coronavirus (PCR) 08/13/21 08/13/21 08/13/21 11:49 16:09 21:07 WBC MCV MCH MCHC RDW Lymph % (Auto) [place] % (Auto) Eos % (Auto) Lymph # (Auto) [place] # (Auto) Eos # (Auto) Baso # (Auto) Seg Neutrophils % Seg Neuts % (Manual) Lymphocytes % (Manual) Seg Neutrophils # Seg Neutrophils # Man Lymphocytes # (Manual) D-Dimer ABG pH POC ABG pCO2 POC ABG pO2 ABG pO2 ABG HCO3 ABG O2 Saturation ABG Base Excess ABG Oxyhemoglobin ABG Sodium ABG Chloride ABG Glucose Oxyhemoglobin Carboxyhemoglobin Sodium Potassium Chloride Carbon Dioxide BUN Creatinine Glucose POC Glucose 114 H 188 H 136 H Hemoglobin A1c Magnesium Ferritin AST ALT Alkaline Phosphatase Lactate Dehydrogenase C-Reactive Protein Total Protein Albumin Arterial Blood Glucose Coronavirus (PCR) 04/27/21 04/27/21 04/28/21 17:34 22:12 08:26 WBC MCV MCH MCHC RDW Lymph % (Auto) [place] % (Auto) Eos % (Auto) Lymph # (Auto) [place] # (Auto) Eos # (Auto) Baso # (Auto) Seg Neutrophils % Seg Neuts % (Manual) Lymphocytes % (Manual) Seg Neutrophils # Seg Neutrophils # Man Lymphocytes # (Manual) D-Dimer ABG pH POC ABG pCO2 POC ABG pO2 ABG pO2 ABG HCO3 ABG O2 Saturation ABG Base Excess ABG Oxyhemoglobin ABG Sodium ABG Chloride ABG Glucose Oxyhemoglobin Carboxyhemoglobin Sodium Potassium Chloride Carbon Dioxide BUN Creatinine Glucose POC Glucose 128 H 159 H 69 L Hemoglobin A1c Magnesium Ferritin AST ALT Alkaline Phosphatase Lactate Dehydrogenase C-Reactive Protein Total Protein Albumin Arterial Blood Glucose Coronavirus (PCR) 04/28/21 04/28/21 04/29/21 12:22 21:11 06:05 WBC MCV MCH MCHC RDW Lymph % (Auto) [place] % (Auto) Eos % (Auto) Lymph # (Auto) [place] # (Auto) Eos # (Auto) Baso # (Auto) Seg Neutrophils % Seg Neuts % (Manual) Lymphocytes % (Manual) Seg Neutrophils # Seg Neutrophils # Man Lymphocytes # (Manual) D-Dimer ABG pH POC ABG pCO2 POC ABG pO2 ABG pO2 ABG HCO3 ABG O2 Saturation ABG Base Excess ABG Oxyhemoglobin ABG Sodium ABG Chloride ABG Glucose Oxyhemoglobin Carboxyhemoglobin Sodium 132 L Potassium Chloride 94.4 L Carbon Dioxide BUN Creatinine 0.2 L D Glucose 140 H POC Glucose 141 H 171 H Hemoglobin A1c Magnesium Ferritin AST ALT Alkaline Phosphatase Lactate Dehydrogenase C-Reactive Protein Total Protein Albumin Arterial Blood Glucose Coronavirus (PCR) 04/29/21 04/29/21 04/29/21 06:05 07:24 11:36 WBC MCV MCH MCHC 35 H RDW 15.9 H Lymph % (Auto) [place] % (Auto) Eos % (Auto) Lymph # (Auto) [place] # (Auto) Eos # (Auto) Baso # (Auto) Seg Neutrophils % Seg Neuts % (Manual) Lymphocytes % (Manual) Seg Neutrophils # Seg Neutrophils # Man Lymphocytes # (Manual) D-Dimer ABG pH POC ABG pCO2 POC ABG pO2 ABG pO2 ABG HCO3 ABG O2 Saturation ABG Base Excess ABG Oxyhemoglobin ABG Sodium ABG Chloride ABG Glucose Oxyhemoglobin Carboxyhemoglobin Sodium Potassium Chloride Carbon Dioxide BUN Creatinine Glucose POC Glucose 141 H 220 H Hemoglobin A1c Magnesium Ferritin AST ALT Alkaline Phosphatase Lactate Dehydrogenase C-Reactive Protein Total Protein Albumin Arterial Blood Glucose Coronavirus (PCR) 04/29/21 04/29/21 04/29/21 14:23 15:30 17:06 WBC MCV MCH MCHC RDW Lymph % (Auto) [place] % (Auto) Eos % (Auto) Lymph # (Auto) [place] # (Auto) Eos # (Auto) Baso # (Auto) Seg Neutrophils % Seg Neuts % (Manual) Lymphocytes % (Manual) Seg Neutrophils # Seg Neutrophils # Man Lymphocytes # (Manual) D-Dimer ABG pH POC ABG pCO2 POC ABG pO2 ABG pO2 52.6 L ABG HCO3 ABG O2 Saturation 86.4 L ABG Base Excess ABG Oxyhemoglobin ABG Sodium ABG Chloride ABG Glucose Oxyhemoglobin 84.6 L Carboxyhemoglobin Sodium Potassium Chloride Carbon Dioxide BUN Creatinine Glucose POC Glucose 173 H 158 H Hemoglobin A1c Magnesium Ferritin AST ALT Alkaline Phosphatase Lactate Dehydrogenase C-Reactive Protein Total Protein Albumin Arterial Blood Glucose Coronavirus (PCR) 04/29/21 04/30/21 04/30/21 21:27 07:16 08:00 WBC MCV MCH MCHC RDW 16.1 H Lymph % (Auto) [place] % (Auto) Eos % (Auto) Lymph # (Auto) [place] # (Auto) Eos # (Auto) Baso # (Auto) Seg Neutrophils % Seg Neuts % (Manual) Lymphocytes % (Manual) Seg Neutrophils # Seg Neutrophils # Man Lymphocytes # (Manual) D-Dimer ABG pH POC ABG pCO2 POC ABG pO2 ABG pO2 ABG HCO3 ABG O2 Saturation ABG Base Excess ABG Oxyhemoglobin ABG Sodium ABG Chloride ABG Glucose Oxyhemoglobin Carboxyhemoglobin Sodium Potassium Chloride Carbon Dioxide BUN Creatinine Glucose POC Glucose 244 H 175 H Hemoglobin A1c Magnesium Ferritin AST ALT Alkaline Phosphatase Lactate Dehydrogenase C-Reactive Protein Total Protein Albumin Arterial Blood Glucose Coronavirus (PCR) 04/30/21 04/30/21 04/30/21 08:00 08:00 11:03 WBC MCV MCH MCHC RDW Lymph % (Auto) [place] % (Auto) Eos % (Auto) Lymph # (Auto) [place] # (Auto) Eos # (Auto) Baso # (Auto) Seg Neutrophils % Seg Neuts % (Manual) Lymphocytes % (Manual) Seg Neutrophils # Seg Neutrophils # Man Lymphocytes # (Manual) D-Dimer 1796.87 H ABG pH POC ABG pCO2 POC ABG pO2 ABG pO2 ABG HCO3 ABG O2 Saturation ABG Base Excess ABG Oxyhemoglobin ABG Sodium ABG Chloride ABG Glucose Oxyhemoglobin Carboxyhemoglobin Sodium 135 L Potassium Chloride 96.3 L Carbon Dioxide BUN Creatinine 0.2 L Glucose 153 H POC Glucose 183 H Hemoglobin A1c Magnesium Ferritin AST 41 H ALT 76 H Alkaline Phosphatase 160 H Lactate Dehydrogenase 522 H C-Reactive Protein Total Protein 6.1 L Albumin 3.1 L Arterial Blood Glucose Coronavirus (PCR) 04/30/21 04/30/21 05/01/21 17:04 22:17 05:39 WBC MCV MCH MCHC RDW Lymph % (Auto) [place] % (Auto) Eos % (Auto) Lymph # (Auto) [place] # (Auto) Eos # (Auto) Baso # (Auto) Seg Neutrophils % Seg Neuts % (Manual) Lymphocytes % (Manual) Seg Neutrophils # Seg Neutrophils # Man Lymphocytes # (Manual) D-Dimer ABG pH POC ABG pCO2 POC ABG pO2 ABG pO2 ABG HCO3 ABG O2 Saturation ABG Base Excess ABG Oxyhemoglobin ABG Sodium ABG Chloride ABG Glucose Oxyhemoglobin Carboxyhemoglobin Sodium 133 L Potassium Chloride 92.1 L Carbon Dioxide BUN 24 H Creatinine 0.4 L D Glucose 269 H POC Glucose 167 H 208 H Hemoglobin A1c Magnesium Ferritin AST ALT 66 H Alkaline Phosphatase 142 H Lactate Dehydrogenase C-Reactive Protein Total Protein Albumin 3.2 L Arterial Blood Glucose Coronavirus (PCR) 05/01/21 05/01/21 05/01/21 05:39 05:39 07:45 WBC MCV MCH MCHC RDW 16.0 H Lymph % (Auto) [place] % (Auto) Eos % (Auto) Lymph # (Auto) [place] # (Auto) Eos # (Auto) Baso # (Auto) Seg Neutrophils % Seg Neuts % (Manual) Lymphocytes % (Manual) Seg Neutrophils # Seg Neutrophils # Man Lymphocytes # (Manual) D-Dimer 3984.95 H ABG pH POC ABG pCO2 POC ABG pO2 ABG pO2 ABG HCO3 ABG O2 Saturation ABG Base Excess ABG Oxyhemoglobin ABG Sodium ABG Chloride ABG Glucose Oxyhemoglobin Carboxyhemoglobin Sodium Potassium Chloride Carbon Dioxide BUN Creatinine Glucose POC Glucose 229 H Hemoglobin A1c Magnesium Ferritin AST ALT Alkaline Phosphatase Lactate Dehydrogenase C-Reactive Protein Total Protein Albumin Arterial Blood Glucose Coronavirus (PCR) 05/01/21 05/01/21 05/01/21 12:10 15:46 21:06 WBC MCV MCH MCHC RDW Lymph % (Auto) [place] % (Auto) Eos % (Auto) Lymph # (Auto) [place] # (Auto) Eos # (Auto) Baso # (Auto) Seg Neutrophils % Seg Neuts % (Manual) Lymphocytes % (Manual) Seg Neutrophils # Seg Neutrophils # Man Lymphocytes # (Manual) D-Dimer ABG pH POC ABG pCO2 POC ABG pO2 ABG pO2 ABG HCO3 ABG O2 Saturation ABG Base Excess ABG Oxyhemoglobin ABG Sodium ABG Chloride ABG Glucose Oxyhemoglobin Carboxyhemoglobin Sodium Potassium Chloride Carbon Dioxide BUN Creatinine Glucose POC Glucose 296 H 279 H 232 H Hemoglobin A1c Magnesium Ferritin AST ALT Alkaline Phosphatase Lactate Dehydrogenase C-Reactive Protein Total Protein Albumin Arterial Blood Glucose Coronavirus (PCR) 05/02/21 05/02/21 05/02/21 04:55 04:55 04:55 WBC MCV MCH MCHC RDW 16.1 H Lymph % (Auto) [place] % (Auto) Eos % (Auto) Lymph # (Auto) [place] # (Auto) Eos # (Auto) Baso # (Auto) Seg Neutrophils % Seg Neuts % (Manual) Lymphocytes % (Manual) Seg Neutrophils # Seg Neutrophils # Man Lymphocytes # (Manual) D-Dimer 1401.08 H ABG pH POC ABG pCO2 POC ABG pO2 ABG pO2 ABG HCO3 ABG O2 Saturation ABG Base Excess ABG Oxyhemoglobin ABG Sodium ABG Chloride ABG Glucose Oxyhemoglobin Carboxyhemoglobin Sodium 131 L Potassium Chloride 95.5 L Carbon Dioxide BUN 20 H Creatinine 0.3 L Glucose 288 H POC Glucose Hemoglobin A1c Magnesium Ferritin AST ALT Alkaline Phosphatase Lactate Dehydrogenase C-Reactive Protein Total Protein 6.0 L Albumin 3.1 L Arterial Blood Glucose Coronavirus (PCR) 05/02/21 05/02/21 05/02/21 07:53 11:45 15:25 WBC MCV MCH MCHC RDW Lymph % (Auto) [place] % (Auto) Eos % (Auto) Lymph # (Auto) [place] # (Auto) Eos # (Auto) Baso # (Auto) Seg Neutrophils % Seg Neuts % (Manual) Lymphocytes % (Manual) Seg Neutrophils # Seg Neutrophils # Man Lymphocytes # (Manual) D-Dimer ABG pH POC ABG pCO2 POC ABG pO2 ABG pO2 ABG HCO3 ABG O2 Saturation ABG Base Excess ABG Oxyhemoglobin ABG Sodium ABG Chloride ABG Glucose Oxyhemoglobin Carboxyhemoglobin Sodium Potassium Chloride Carbon Dioxide BUN Creatinine Glucose POC Glucose 180 H 228 H 275 H Hemoglobin A1c Magnesium Ferritin AST ALT Alkaline Phosphatase Lactate Dehydrogenase C-Reactive Protein Total Protein Albumin Arterial Blood Glucose Coronavirus (PCR) 05/02/21 05/03/21 05/03/21 22:56 04:30 04:49 WBC MCV MCH MCHC RDW Lymph % (Auto) [place] % (Auto) Eos % (Auto) Lymph # (Auto) [place] # (Auto) Eos # (Auto) Baso # (Auto) Seg Neutrophils % Seg Neuts % (Manual) Lymphocytes % (Manual) Seg Neutrophils # Seg Neutrophils # Man Lymphocytes # (Manual) D-Dimer ABG pH 7.229 L POC ABG pCO2 POC ABG pO2 65.3 L ABG pO2 ABG HCO3 ABG O2 Saturation ABG Base Excess ABG Oxyhemoglobin 87.8 L ABG Sodium 133.0 L ABG Chloride 97.0 L ABG Glucose 403 H Oxyhemoglobin Carboxyhemoglobin Sodium 130 L Potassium Chloride 94.9 L Carbon Dioxide BUN 20 H Creatinine 0.5 L D Glucose 359 H POC Glucose 293 H Hemoglobin A1c Magnesium Ferritin AST 54 H ALT 75 H Alkaline Phosphatase 138 H Lactate Dehydrogenase C-Reactive Protein Total Protein Albumin 3.6 L Arterial Blood Glucose 403 H Coronavirus (PCR) 05/03/21 05/03/21 05/03/21 05:27 11:26 17:57 WBC MCV MCH MCHC RDW Lymph % (Auto) [place] % (Auto) Eos % (Auto) Lymph # (Auto) [place] # (Auto) Eos # (Auto) Baso # (Auto) Seg Neutrophils % Seg Neuts % (Manual) Lymphocytes % (Manual) Seg Neutrophils # Seg Neutrophils # Man Lymphocytes # (Manual) D-Dimer ABG pH POC ABG pCO2 POC ABG pO2 ABG pO2 ABG HCO3 ABG O2 Saturation ABG Base Excess ABG Oxyhemoglobin ABG Sodium ABG Chloride ABG Glucose Oxyhemoglobin Carboxyhemoglobin Sodium Potassium Chloride Carbon Dioxide BUN Creatinine Glucose POC Glucose 361 H 297 H 226 H Hemoglobin A1c Magnesium Ferritin AST ALT Alkaline Phosphatase Lactate Dehydrogenase C-Reactive Protein Total Protein Albumin Arterial Blood Glucose Coronavirus (PCR) 05/03/21 05/04/21 05/04/21 23:12 05:12 07:30 WBC MCV MCH MCHC RDW Lymph % (Auto) [place] % (Auto) Eos % (Auto) Lymph # (Auto) [place] # (Auto) Eos # (Auto) Baso # (Auto) Seg Neutrophils % Seg Neuts % (Manual) Lymphocytes % (Manual) Seg Neutrophils # Seg Neutrophils # Man Lymphocytes # (Manual) D-Dimer ABG pH POC ABG pCO2 POC ABG pO2 ABG pO2 ABG HCO3 ABG O2 Saturation ABG Base Excess ABG Oxyhemoglobin ABG Sodium ABG Chloride ABG Glucose Oxyhemoglobin Carboxyhemoglobin Sodium Potassium Chloride Carbon Dioxide BUN Creatinine Glucose POC Glucose 282 H 285 H 254 H Hemoglobin A1c Magnesium Ferritin AST ALT Alkaline Phosphatase Lactate Dehydrogenase C-Reactive Protein Total Protein Albumin Arterial Blood Glucose Coronavirus (PCR) 05/04/21 05/04/21 05/04/21 08:58 11:45 16:07 WBC MCV MCH MCHC RDW Lymph % (Auto) [place] % (Auto) Eos % (Auto) Lymph # (Auto) [place] # (Auto) Eos # (Auto) Baso # (Auto) Seg Neutrophils % Seg Neuts % (Manual) Lymphocytes % (Manual) Seg Neutrophils # Seg Neutrophils # Man Lymphocytes # (Manual) D-Dimer ABG pH POC ABG pCO2 POC ABG pO2 ABG pO2 ABG HCO3 ABG O2 Saturation ABG Base Excess ABG Oxyhemoglobin ABG Sodium ABG Chloride ABG Glucose Oxyhemoglobin Carboxyhemoglobin Sodium 134 L Potassium Chloride Carbon Dioxide BUN 20 H Creatinine 0.3 L Glucose 267 H POC Glucose 244 H 297 H Hemoglobin A1c Magnesium Ferritin AST ALT Alkaline Phosphatase Lactate Dehydrogenase C-Reactive Protein Total Protein 6.0 L Albumin 3.2 L Arterial Blood Glucose Coronavirus (PCR) 05/04/21 05/05/21 05/05/21 23:32 05:00 05:13 WBC MCV MCH MCHC RDW Lymph % (Auto) [place] % (Auto) Eos % (Auto) Lymph # (Auto) [place] # (Auto) Eos # (Auto) Baso # (Auto) Seg Neutrophils % Seg Neuts % (Manual) Lymphocytes % (Manual) Seg Neutrophils # Seg Neutrophils # Man Lymphocytes # (Manual) D-Dimer ABG pH POC ABG pCO2 POC ABG pO2 ABG pO2 ABG HCO3 ABG O2 Saturation ABG Base Excess ABG Oxyhemoglobin ABG Sodium ABG Chloride ABG Glucose Oxyhemoglobin Carboxyhemoglobin Sodium 132 L Potassium Chloride 96.4 L Carbon Dioxide BUN 22 H Creatinine 0.3 L Glucose 228 H POC Glucose 154 H 260 H Hemoglobin A1c Magnesium Ferritin AST ALT 67 H Alkaline Phosphatase Lactate Dehydrogenase C-Reactive Protein Total Protein 6.1 L Albumin 3.2 L Arterial Blood Glucose Coronavirus (PCR) 05/05/21 05/05/21 05/05/21 11:32 17:49 23:07 WBC MCV MCH MCHC RDW Lymph % (Auto) [place] % (Auto) Eos % (Auto) Lymph # (Auto) [place] # (Auto) Eos # (Auto) Baso # (Auto) Seg Neutrophils % Seg Neuts % (Manual) Lymphocytes % (Manual) Seg Neutrophils # Seg Neutrophils # Man Lymphocytes # (Manual) D-Dimer ABG pH POC ABG pCO2 POC ABG pO2 ABG pO2 ABG HCO3 ABG O2 Saturation ABG Base Excess ABG Oxyhemoglobin ABG Sodium ABG Chloride ABG Glucose Oxyhemoglobin Carboxyhemoglobin Sodium Potassium Chloride Carbon Dioxide BUN Creatinine Glucose POC Glucose 279 H 308 H 213 H Hemoglobin A1c Magnesium Ferritin AST ALT Alkaline Phosphatase Lactate Dehydrogenase C-Reactive Protein Total Protein Albumin Arterial Blood Glucose Coronavirus (PCR) 05/06/21 05/06/21 05/06/21 05:00 05:00 05:20 WBC MCV MCH MCHC RDW 16.8 H Lymph % (Auto) [place] % (Auto) Eos % (Auto) Lymph # (Auto) [place] # (Auto) Eos # (Auto) Baso # (Auto) Seg Neutrophils % Seg Neuts % (Manual) 99.0 H Lymphocytes % (Manual) Seg Neutrophils # Seg Neutrophils # Man 10.9 H Lymphocytes # (Manual) 0.0 L D-Dimer ABG pH POC ABG pCO2 POC ABG pO2 ABG pO2 ABG HCO3 ABG O2 Saturation ABG Base Excess ABG Oxyhemoglobin ABG Sodium ABG Chloride ABG Glucose Oxyhemoglobin Carboxyhemoglobin Sodium 133 L Potassium Chloride Carbon Dioxide BUN 21 H Creatinine 0.3 L Glucose 259 H POC Glucose 308 H Hemoglobin A1c Magnesium Ferritin AST ALT Alkaline Phosphatase Lactate Dehydrogenase C-Reactive Protein Total Protein Albumin 3.2 L Arterial Blood Glucose Coronavirus (PCR) 05/06/21 05/06/21 05/06/21 11:24 17:54 21:32 WBC MCV MCH MCHC RDW Lymph % (Auto) [place] % (Auto) Eos % (Auto) Lymph # (Auto) [place] # (Auto) Eos # (Auto) Baso # (Auto) Seg Neutrophils % Seg Neuts % (Manual) Lymphocytes % (Manual) Seg Neutrophils # Seg Neutrophils # Man Lymphocytes # (Manual) D-Dimer ABG pH POC ABG pCO2 POC ABG pO2 ABG pO2 ABG HCO3 ABG O2 Saturation ABG Base Excess ABG Oxyhemoglobin ABG Sodium ABG Chloride ABG Glucose Oxyhemoglobin Carboxyhemoglobin Sodium Potassium Chloride Carbon Dioxide BUN Creatinine Glucose POC Glucose 262 H 124 H 246 H Hemoglobin A1c Magnesium Ferritin AST ALT Alkaline Phosphatase Lactate Dehydrogenase C-Reactive Protein Total Protein Albumin Arterial Blood Glucose Coronavirus (PCR) 05/06/21 05/07/21 05/07/21 23:10 04:54 04:54 WBC MCV MCH MCHC RDW Lymph % (Auto) [place] % (Auto) Eos % (Auto) Lymph # (Auto) [place] # (Auto) Eos # (Auto) Baso # (Auto) Seg Neutrophils % Seg Neuts % (Manual) Lymphocytes % (Manual) Seg Neutrophils # Seg Neutrophils # Man Lymphocytes # (Manual) D-Dimer 1609.28 H ABG pH POC ABG pCO2 POC ABG pO2 ABG pO2 ABG HCO3 ABG O2 Saturation ABG Base Excess ABG Oxyhemoglobin ABG Sodium ABG Chloride ABG Glucose Oxyhemoglobin Carboxyhemoglobin Sodium 136 L Potassium Chloride Carbon Dioxide BUN 23 H Creatinine 0.3 L Glucose 110 H POC Glucose 249 H Hemoglobin A1c Magnesium Ferritin AST ALT Alkaline Phosphatase Lactate Dehydrogenase C-Reactive Protein Total Protein 6.2 L Albumin 3.0 L Arterial Blood Glucose Coronavirus (PCR) 05/07/21 05/07/21 05/07/21 04:54 04:54 11:41 WBC MCV MCH MCHC RDW Lymph % (Auto) [place] % (Auto) Eos % (Auto) Lymph # (Auto) [place] # (Auto) Eos # (Auto) Baso # (Auto) Seg Neutrophils % Seg Neuts % (Manual) Lymphocytes % (Manual) Seg Neutrophils # Seg Neutrophils # Man Lymphocytes # (Manual) D-Dimer ABG pH POC ABG pCO2 POC ABG pO2 ABG pO2 ABG HCO3 ABG O2 Saturation ABG Base Excess ABG Oxyhemoglobin ABG Sodium ABG Chloride ABG Glucose Oxyhemoglobin Carboxyhemoglobin Sodium Potassium Chloride Carbon Dioxide BUN Creatinine Glucose POC Glucose 118 H Hemoglobin A1c Magnesium Ferritin 296.1 H AST ALT Alkaline Phosphatase Lactate Dehydrogenase 724 H C-Reactive Protein Total Protein Albumin Arterial Blood Glucose Coronavirus (PCR) 05/07/21 05/07/21 05/08/21 16:43 22:34 06:44 WBC MCV MCH MCHC RDW Lymph % (Auto) [place] % (Auto) Eos % (Auto) Lymph # (Auto) [place] # (Auto) Eos # (Auto) Baso # (Auto) Seg Neutrophils % Seg Neuts % (Manual) Lymphocytes % (Manual) Seg Neutrophils # Seg Neutrophils # Man Lymphocytes # (Manual) D-Dimer ABG pH POC ABG pCO2 POC ABG pO2 ABG pO2 ABG HCO3 ABG O2 Saturation ABG Base Excess ABG Oxyhemoglobin ABG Sodium ABG Chloride ABG Glucose Oxyhemoglobin Carboxyhemoglobin Sodium Potassium Chloride Carbon Dioxide BUN Creatinine Glucose POC Glucose 159 H 233 H 235 H Hemoglobin A1c Magnesium Ferritin AST ALT Alkaline Phosphatase Lactate Dehydrogenase C-Reactive Protein Total Protein Albumin Arterial Blood Glucose Coronavirus (PCR) 05/08/21 05/08/21 05/08/21 07:49 11:56 17:13 WBC MCV MCH MCHC RDW Lymph % (Auto) [place] % (Auto) Eos % (Auto) Lymph # (Auto) [place] # (Auto) Eos # (Auto) Baso # (Auto) Seg Neutrophils % Seg Neuts % (Manual) Lymphocytes % (Manual) Seg Neutrophils # Seg Neutrophils # Man Lymphocytes # (Manual) D-Dimer ABG pH POC ABG pCO2 POC ABG pO2 ABG pO2 ABG HCO3 ABG O2 Saturation ABG Base Excess ABG Oxyhemoglobin ABG Sodium ABG Chloride ABG Glucose Oxyhemoglobin Carboxyhemoglobin Sodium Potassium Chloride Carbon Dioxide BUN Creatinine Glucose POC Glucose 219 H 184 H 182 H Hemoglobin A1c Magnesium Ferritin AST ALT Alkaline Phosphatase Lactate Dehydrogenase C-Reactive Protein Total Protein Albumin Arterial Blood Glucose Coronavirus (PCR) 05/08/21 05/09/21 05/09/21 23:35 05:20 05:20 WBC MCV MCH MCHC RDW Lymph % (Auto) [place] % (Auto) Eos % (Auto) Lymph # (Auto) [place] # (Auto) Eos # (Auto) Baso # (Auto) Seg Neutrophils % Seg Neuts % (Manual) Lymphocytes % (Manual) Seg Neutrophils # Seg Neutrophils # Man Lymphocytes # (Manual) D-Dimer 1003.87 H ABG pH POC ABG pCO2 POC ABG pO2 ABG pO2 ABG HCO3 ABG O2 Saturation ABG Base Excess ABG Oxyhemoglobin ABG Sodium ABG Chloride ABG Glucose Oxyhemoglobin Carboxyhemoglobin Sodium Potassium Chloride Carbon Dioxide BUN Creatinine Glucose POC Glucose 198 H Hemoglobin A1c Magnesium Ferritin 378.7 H AST ALT Alkaline Phosphatase Lactate Dehydrogenase C-Reactive Protein Total Protein Albumin Arterial Blood Glucose Coronavirus (PCR) 05/09/21 05/09/21 05/09/21 05:20 06:04 12:53 WBC MCV MCH MCHC RDW Lymph % (Auto) [place] % (Auto) Eos % (Auto) Lymph # (Auto) [place] # (Auto) Eos # (Auto) Baso # (Auto) Seg Neutrophils % Seg Neuts % (Manual) Lymphocytes % (Manual) Seg Neutrophils # Seg Neutrophils # Man Lymphocytes # (Manual) D-Dimer ABG pH POC ABG pCO2 POC ABG pO2 ABG pO2 ABG HCO3 ABG O2 Saturation ABG Base Excess ABG Oxyhemoglobin ABG Sodium ABG Chloride ABG Glucose Oxyhemoglobin Carboxyhemoglobin Sodium Potassium Chloride Carbon Dioxide BUN Creatinine Glucose POC Glucose 159 H 180 H Hemoglobin A1c Magnesium Ferritin AST ALT Alkaline Phosphatase Lactate Dehydrogenase 558 H C-Reactive Protein 2.40 H Total Protein Albumin Arterial Blood Glucose Coronavirus (PCR) 05/09/21 05/09/21 05/10/21 16:43 21:27 10:18 WBC MCV MCH MCHC RDW Lymph % (Auto) [place] % (Auto) Eos % (Auto) Lymph # (Auto) [place] # (Auto) Eos # (Auto) Baso # (Auto) Seg Neutrophils % Seg Neuts % (Manual) Lymphocytes % (Manual) Seg Neutrophils # Seg Neutrophils # Man Lymphocytes # (Manual) D-Dimer ABG pH POC ABG pCO2 POC ABG pO2 ABG pO2 ABG HCO3 ABG O2 Saturation ABG Base Excess ABG Oxyhemoglobin ABG Sodium ABG Chloride ABG Glucose Oxyhemoglobin Carboxyhemoglobin Sodium Potassium Chloride Carbon Dioxide BUN Creatinine Glucose POC Glucose 212 H 285 H 261 H Hemoglobin A1c Magnesium Ferritin AST ALT Alkaline Phosphatase Lactate Dehydrogenase C-Reactive Protein Total Protein Albumin Arterial Blood Glucose Coronavirus (PCR) 05/10/21 05/10/21 05/11/21 17:58 18:02 00:29 WBC MCV MCH MCHC RDW Lymph % (Auto) [place] % (Auto) Eos % (Auto) Lymph # (Auto) [place] # (Auto) Eos # (Auto) Baso # (Auto) Seg Neutrophils % Seg Neuts % (Manual) Lymphocytes % (Manual) Seg Neutrophils # Seg Neutrophils # Man Lymphocytes # (Manual) D-Dimer ABG pH POC ABG pCO2 POC ABG pO2 ABG pO2 ABG HCO3 ABG O2 Saturation ABG Base Excess ABG Oxyhemoglobin ABG Sodium ABG Chloride ABG Glucose Oxyhemoglobin Carboxyhemoglobin Sodium Potassium Chloride Carbon Dioxide BUN Creatinine Glucose POC Glucose 213 H 179 H 149 H Hemoglobin A1c Magnesium Ferritin AST ALT Alkaline Phosphatase Lactate Dehydrogenase C-Reactive Protein Total Protein Albumin Arterial Blood Glucose Coronavirus (PCR) 05/11/21 05/11/21 05/11/21 05:22 11:32 17:00 WBC 14.9 H MCV MCH MCHC RDW 18.9 H Lymph % (Auto) 4.9 L [place] % (Auto) Eos % (Auto) Lymph # (Auto) 0.7 L [place] # (Auto) Eos # (Auto) Baso # (Auto) 0.2 H Seg Neutrophils % Seg Neuts % (Manual) Lymphocytes % (Manual) Seg Neutrophils # 13.3 H Seg Neutrophils # Man Lymphocytes # (Manual) D-Dimer ABG pH POC ABG pCO2 POC ABG pO2 ABG pO2 ABG HCO3 ABG O2 Saturation ABG Base Excess ABG Oxyhemoglobin ABG Sodium ABG Chloride ABG Glucose Oxyhemoglobin Carboxyhemoglobin Sodium Potassium Chloride Carbon Dioxide BUN Creatinine Glucose POC Glucose 162 H 179 H Hemoglobin A1c Magnesium Ferritin AST ALT Alkaline Phosphatase Lactate Dehydrogenase C-Reactive Protein Total Protein Albumin Arterial Blood Glucose Coronavirus (PCR) 05/11/21 05/11/21 05/11/21 17:00 17:33 22:03 WBC MCV MCH MCHC RDW Lymph % (Auto) [place] % (Auto) Eos % (Auto) Lymph # (Auto) [place] # (Auto) Eos # (Auto) Baso # (Auto) Seg Neutrophils % Seg Neuts % (Manual) Lymphocytes % (Manual) Seg Neutrophils # Seg Neutrophils # Man Lymphocytes # (Manual) D-Dimer ABG pH POC ABG pCO2 POC ABG pO2 ABG pO2 ABG HCO3 ABG O2 Saturation ABG Base Excess ABG Oxyhemoglobin ABG Sodium ABG Chloride ABG Glucose Oxyhemoglobin Carboxyhemoglobin Sodium 135 L Potassium Chloride 97.3 L Carbon Dioxide BUN 21 H Creatinine 0.3 L Glucose 133 H POC Glucose 140 H 282 H Hemoglobin A1c Magnesium Ferritin AST ALT 60 H Alkaline Phosphatase Lactate Dehydrogenase C-Reactive Protein Total Protein Albumin 3.1 L Arterial Blood Glucose Coronavirus (PCR) 05/12/21 05/12/21 05/12/21 04:05 04:05 04:05 WBC MCV MCH MCHC RDW 18.4 H Lymph % (Auto) [place] % (Auto) Eos % (Auto) Lymph # (Auto) [place] # (Auto) Eos # (Auto) Baso # (Auto) Seg Neutrophils % Seg Neuts % (Manual) 94.0 H Lymphocytes % (Manual) 4.0 L Seg Neutrophils # Seg Neutrophils # Man Lymphocytes # (Manual) 0.3 L D-Dimer ABG pH POC ABG pCO2 POC ABG pO2 ABG pO2 ABG HCO3 ABG O2 Saturation ABG Base Excess ABG Oxyhemoglobin ABG Sodium ABG Chloride ABG Glucose Oxyhemoglobin Carboxyhemoglobin Sodium 136 L Potassium Chloride Carbon Dioxide BUN 18 H Creatinine 0.2 L Glucose 142 H POC Glucose Hemoglobin A1c Magnesium Ferritin 350.7 H AST ALT Alkaline Phosphatase Lactate Dehydrogenase 546 H C-Reactive Protein Total Protein 6.1 L Albumin 3.0 L Arterial Blood Glucose Coronavirus (PCR) 05/12/21 05/12/21 05/12/21 05:11 11:17 16:27 WBC MCV MCH MCHC RDW Lymph % (Auto) [place] % (Auto) Eos % (Auto) Lymph # (Auto) [place] # (Auto) Eos # (Auto) Baso # (Auto) Seg Neutrophils % Seg Neuts % (Manual) Lymphocytes % (Manual) Seg Neutrophils # Seg Neutrophils # Man Lymphocytes # (Manual) D-Dimer ABG pH POC ABG pCO2 POC ABG pO2 ABG pO2 ABG HCO3 ABG O2 Saturation ABG Base Excess ABG Oxyhemoglobin ABG Sodium ABG Chloride ABG Glucose Oxyhemoglobin Carboxyhemoglobin Sodium Potassium Chloride Carbon Dioxide BUN Creatinine Glucose POC Glucose 152 H 190 H 261 H Hemoglobin A1c Magnesium Ferritin AST ALT Alkaline Phosphatase Lactate Dehydrogenase C-Reactive Protein Total Protein Albumin Arterial Blood Glucose Coronavirus (PCR) 05/12/21 05/13/21 05/13/21 20:55 11:08 21:41 WBC MCV MCH MCHC RDW Lymph % (Auto) [place] % (Auto) Eos % (Auto) Lymph # (Auto) [place] # (Auto) Eos # (Auto) Baso # (Auto) Seg Neutrophils % Seg Neuts % (Manual) Lymphocytes % (Manual) Seg Neutrophils # Seg Neutrophils # Man Lymphocytes # (Manual) D-Dimer ABG pH POC ABG pCO2 POC ABG pO2 ABG pO2 ABG HCO3 ABG O2 Saturation ABG Base Excess ABG Oxyhemoglobin ABG Sodium ABG Chloride ABG Glucose Oxyhemoglobin Carboxyhemoglobin Sodium Potassium Chloride Carbon Dioxide BUN Creatinine Glucose POC Glucose 231 H 106 H 174 H Hemoglobin A1c Magnesium Ferritin AST ALT Alkaline Phosphatase Lactate Dehydrogenase C-Reactive Protein Total Protein Albumin Arterial Blood Glucose Coronavirus (PCR) 05/14/21 05/14/21 05/14/21 00:53 02:23 06:06 WBC MCV MCH MCHC RDW Lymph % (Auto) [place] % (Auto) Eos % (Auto) Lymph # (Auto) [place] # (Auto) Eos # (Auto) Baso # (Auto) Seg Neutrophils % Seg Neuts % (Manual) Lymphocytes % (Manual) Seg Neutrophils # Seg Neutrophils # Man Lymphocytes # (Manual) D-Dimer ABG pH POC ABG pCO2 POC ABG pO2 ABG pO2 130.3 H ABG HCO3 30.6 H ABG O2 Saturation ABG Base Excess 4.9 H ABG Oxyhemoglobin ABG Sodium ABG Chloride ABG Glucose Oxyhemoglobin Carboxyhemoglobin Sodium Potassium Chloride Carbon Dioxide BUN Creatinine Glucose POC Glucose 229 H 119 H Hemoglobin A1c Magnesium Ferritin AST ALT Alkaline Phosphatase Lactate Dehydrogenase C-Reactive Protein Total Protein Albumin Arterial Blood Glucose Coronavirus (PCR) 05/14/21 05/14/21 05/14/21 07:13 07:13 07:13 WBC MCV MCH MCHC RDW Lymph % (Auto) [place] % (Auto) Eos % (Auto) Lymph # (Auto) [place] # (Auto) Eos # (Auto) Baso # (Auto) Seg Neutrophils % Seg Neuts % (Manual) Lymphocytes % (Manual) Seg Neutrophils # Seg Neutrophils # Man Lymphocytes # (Manual) D-Dimer 712.80 H ABG pH POC ABG pCO2 POC ABG pO2 ABG pO2 ABG HCO3 ABG O2 Saturation ABG Base Excess ABG Oxyhemoglobin ABG Sodium ABG Chloride ABG Glucose Oxyhemoglobin Carboxyhemoglobin Sodium 133 L Potassium Chloride 95.5 L Carbon Dioxide 32 H BUN Creatinine 0.2 L Glucose 137 H POC Glucose Hemoglobin A1c Magnesium Ferritin 283.5 H AST ALT 63 H Alkaline Phosphatase Lactate Dehydrogenase 563 H C-Reactive Protein Total Protein 6.1 L Albumin 3.0 L Arterial Blood Glucose Coronavirus (PCR) 05/14/21 05/14/21 05/14/21 12:21 15:33 21:50 WBC MCV MCH MCHC RDW Lymph % (Auto) [place] % (Auto) Eos % (Auto) Lymph # (Auto) [place] # (Auto) Eos # (Auto) Baso # (Auto) Seg Neutrophils % Seg Neuts % (Manual) Lymphocytes % (Manual) Seg Neutrophils # Seg Neutrophils # Man Lymphocytes # (Manual) D-Dimer ABG pH POC ABG pCO2 POC ABG pO2 ABG pO2 ABG HCO3 ABG O2 Saturation ABG Base Excess ABG Oxyhemoglobin ABG Sodium ABG Chloride ABG Glucose Oxyhemoglobin Carboxyhemoglobin Sodium Potassium Chloride Carbon Dioxide BUN Creatinine Glucose POC Glucose 143 H 204 H 202 H Hemoglobin A1c Magnesium Ferritin AST ALT Alkaline Phosphatase Lactate Dehydrogenase C-Reactive Protein Total Protein Albumin Arterial Blood Glucose Coronavirus (PCR) 05/15/21 05/15/21 05/15/21 05:05 11:12 16:39 WBC MCV MCH MCHC RDW Lymph % (Auto) [place] % (Auto) Eos % (Auto) Lymph # (Auto) [place] # (Auto) Eos # (Auto) Baso # (Auto) Seg Neutrophils % Seg Neuts % (Manual) Lymphocytes % (Manual) Seg Neutrophils # Seg Neutrophils # Man Lymphocytes # (Manual) D-Dimer ABG pH POC ABG pCO2 POC ABG pO2 ABG pO2 ABG HCO3 ABG O2 Saturation ABG Base Excess ABG Oxyhemoglobin ABG Sodium ABG Chloride ABG Glucose Oxyhemoglobin Carboxyhemoglobin Sodium Potassium Chloride Carbon Dioxide BUN Creatinine Glucose POC Glucose 125 H 201 H 241 H Hemoglobin A1c Magnesium Ferritin AST ALT Alkaline Phosphatase Lactate Dehydrogenase C-Reactive Protein Total Protein Albumin Arterial Blood Glucose Coronavirus (PCR) 05/15/21 05/16/21 05/16/21 21:31 05:04 10:40 WBC MCV MCH MCHC RDW Lymph % (Auto) [place] % (Auto) Eos % (Auto) Lymph # (Auto) [place] # (Auto) Eos # (Auto) Baso # (Auto) Seg Neutrophils % Seg Neuts % (Manual) Lymphocytes % (Manual) Seg Neutrophils # Seg Neutrophils # Man Lymphocytes # (Manual) D-Dimer ABG pH POC ABG pCO2 POC ABG pO2 ABG pO2 ABG HCO3 ABG O2 Saturation ABG Base Excess ABG Oxyhemoglobin ABG Sodium ABG Chloride ABG Glucose Oxyhemoglobin Carboxyhemoglobin Sodium Potassium Chloride Carbon Dioxide BUN Creatinine Glucose POC Glucose 234 H 123 H 231 H Hemoglobin A1c Magnesium Ferritin AST ALT Alkaline Phosphatase Lactate Dehydrogenase C-Reactive Protein Total Protein Albumin Arterial Blood Glucose Coronavirus (PCR) 05/16/21 05/16/21 05/17/21 18:23 21:29 06:20 WBC MCV MCH MCHC RDW 18.8 H Lymph % (Auto) 10.2 L [place] % (Auto) Eos % (Auto) Lymph # (Auto) 0.8 L [place] # (Auto) Eos # (Auto) Baso # (Auto) Seg Neutrophils % 85.8 H Seg Neuts % (Manual) Lymphocytes % (Manual) Seg Neutrophils # Seg Neutrophils # Man Lymphocytes # (Manual) D-Dimer ABG pH POC ABG pCO2 POC ABG pO2 ABG pO2 ABG HCO3 ABG O2 Saturation ABG Base Excess ABG Oxyhemoglobin ABG Sodium ABG Chloride ABG Glucose Oxyhemoglobin Carboxyhemoglobin Sodium Potassium Chloride Carbon Dioxide BUN Creatinine Glucose POC Glucose 266 H 234 H Hemoglobin A1c Magnesium Ferritin AST ALT Alkaline Phosphatase Lactate Dehydrogenase C-Reactive Protein Total Protein Albumin Arterial Blood Glucose Coronavirus (PCR) 05/17/21 05/17/21 05/17/21 06:20 11:06 16:36 WBC MCV MCH MCHC RDW Lymph % (Auto) [place] % (Auto) Eos % (Auto) Lymph # (Auto) [place] # (Auto) Eos # (Auto) Baso # (Auto) Seg Neutrophils % Seg Neuts % (Manual) Lymphocytes % (Manual) Seg Neutrophils # Seg Neutrophils # Man Lymphocytes # (Manual) D-Dimer ABG pH POC ABG pCO2 POC ABG pO2 ABG pO2 ABG HCO3 ABG O2 Saturation ABG Base Excess ABG Oxyhemoglobin ABG Sodium ABG Chloride ABG Glucose Oxyhemoglobin Carboxyhemoglobin Sodium Potassium Chloride Carbon Dioxide 33 H BUN Creatinine 0.2 L Glucose 101 H POC Glucose 209 H 180 H Hemoglobin A1c Magnesium Ferritin AST ALT Alkaline Phosphatase Lactate Dehydrogenase C-Reactive Protein Total Protein Albumin Arterial Blood Glucose Coronavirus (PCR) 05/17/21 05/18/21 05/18/21 21:06 12:00 15:06 WBC MCV MCH MCHC RDW Lymph % (Auto) [place] % (Auto) Eos % (Auto) Lymph # (Auto) [place] # (Auto) Eos # (Auto) Baso # (Auto) Seg Neutrophils % Seg Neuts % (Manual) Lymphocytes % (Manual) Seg Neutrophils # Seg Neutrophils # Man Lymphocytes # (Manual) D-Dimer 874.02 H ABG pH POC ABG pCO2 POC ABG pO2 ABG pO2 ABG HCO3 ABG O2 Saturation ABG Base Excess ABG Oxyhemoglobin ABG Sodium ABG Chloride ABG Glucose Oxyhemoglobin Carboxyhemoglobin Sodium Potassium Chloride Carbon Dioxide BUN Creatinine Glucose POC Glucose 256 H 139 H Hemoglobin A1c Magnesium Ferritin AST ALT Alkaline Phosphatase Lactate Dehydrogenase C-Reactive Protein Total Protein Albumin Arterial Blood Glucose Coronavirus (PCR) 05/18/21 05/18/21 05/18/21 15:06 15:06 16:08 WBC MCV MCH MCHC RDW Lymph % (Auto) [place] % (Auto) Eos % (Auto) Lymph # (Auto) [place] # (Auto) Eos # (Auto) Baso # (Auto) Seg Neutrophils % Seg Neuts % (Manual) Lymphocytes % (Manual) Seg Neutrophils # Seg Neutrophils # Man Lymphocytes # (Manual) D-Dimer ABG pH POC ABG pCO2 POC ABG pO2 ABG pO2 ABG HCO3 ABG O2 Saturation ABG Base Excess ABG Oxyhemoglobin ABG Sodium ABG Chloride ABG Glucose Oxyhemoglobin Carboxyhemoglobin Sodium Potassium Chloride Carbon Dioxide BUN Creatinine Glucose POC Glucose 178 H Hemoglobin A1c Magnesium Ferritin 289.6 H AST ALT Alkaline Phosphatase Lactate Dehydrogenase 605 H C-Reactive Protein Total Protein Albumin Arterial Blood Glucose Coronavirus (PCR) 05/18/21 05/19/21 05/19/21 21:22 11:57 15:26 WBC MCV MCH MCHC RDW Lymph % (Auto) [place] % (Auto) Eos % (Auto) Lymph # (Auto) [place] # (Auto) Eos # (Auto) Baso # (Auto) Seg Neutrophils % Seg Neuts % (Manual) Lymphocytes % (Manual) Seg Neutrophils # Seg Neutrophils # Man Lymphocytes # (Manual) D-Dimer ABG pH POC ABG pCO2 POC ABG pO2 ABG pO2 ABG HCO3 ABG O2 Saturation ABG Base Excess ABG Oxyhemoglobin ABG Sodium ABG Chloride ABG Glucose Oxyhemoglobin Carboxyhemoglobin Sodium Potassium Chloride Carbon Dioxide BUN Creatinine Glucose POC Glucose 241 H 201 H 209 H Hemoglobin A1c Magnesium Ferritin AST ALT Alkaline Phosphatase Lactate Dehydrogenase C-Reactive Protein Total Protein Albumin Arterial Blood Glucose Coronavirus (PCR) 05/19/21 05/20/21 05/20/21 20:59 07:38 08:01 WBC MCV MCH MCHC RDW 19.7 H Lymph % (Auto) 8.3 L [place] % (Auto) Eos % (Auto) Lymph # (Auto) 0.8 L [place] # (Auto) Eos # (Auto) Baso # (Auto) Seg Neutrophils % 88.6 H Seg Neuts % (Manual) Lymphocytes % (Manual) Seg Neutrophils # 8.4 H Seg Neutrophils # Man Lymphocytes # (Manual) D-Dimer ABG pH POC ABG pCO2 POC ABG pO2 ABG pO2 ABG HCO3 ABG O2 Saturation ABG Base Excess ABG Oxyhemoglobin ABG Sodium ABG Chloride ABG Glucose Oxyhemoglobin Carboxyhemoglobin Sodium Potassium Chloride Carbon Dioxide BUN Creatinine Glucose POC Glucose 226 H 130 H Hemoglobin A1c Magnesium Ferritin AST ALT Alkaline Phosphatase Lactate Dehydrogenase C-Reactive Protein Total Protein Albumin Arterial Blood Glucose Coronavirus (PCR) 05/20/21 05/20/21 05/20/21 08:01 11:00 16:43 WBC MCV MCH MCHC RDW Lymph % (Auto) [place] % (Auto) Eos % (Auto) Lymph # (Auto) [place] # (Auto) Eos # (Auto) Baso # (Auto) Seg Neutrophils % Seg Neuts % (Manual) Lymphocytes % (Manual) Seg Neutrophils # Seg Neutrophils # Man Lymphocytes # (Manual) D-Dimer ABG pH POC ABG pCO2 POC ABG pO2 ABG pO2 ABG HCO3 ABG O2 Saturation ABG Base Excess ABG Oxyhemoglobin ABG Sodium ABG Chloride ABG Glucose Oxyhemoglobin Carboxyhemoglobin Sodium Potassium Chloride Carbon Dioxide BUN 18 H Creatinine 0.2 L Glucose 132 H POC Glucose 237 H 240 H Hemoglobin A1c Magnesium Ferritin AST ALT Alkaline Phosphatase Lactate Dehydrogenase C-Reactive Protein Total Protein Albumin Arterial Blood Glucose Coronavirus (PCR) 05/20/21 05/21/21 05/21/21 21:21 07:35 11:32 WBC MCV MCH MCHC RDW Lymph % (Auto) [place] % (Auto) Eos % (Auto) Lymph # (Auto) [place] # (Auto) Eos # (Auto) Baso # (Auto) Seg Neutrophils % Seg Neuts % (Manual) Lymphocytes % (Manual) Seg Neutrophils # Seg Neutrophils # Man Lymphocytes # (Manual) D-Dimer ABG pH POC ABG pCO2 POC ABG pO2 ABG pO2 ABG HCO3 ABG O2 Saturation ABG Base Excess ABG Oxyhemoglobin ABG Sodium ABG Chloride ABG Glucose Oxyhemoglobin Carboxyhemoglobin Sodium Potassium Chloride Carbon Dioxide BUN Creatinine Glucose POC Glucose 241 H 162 H 171 H Hemoglobin A1c Magnesium Ferritin AST ALT Alkaline Phosphatase Lactate Dehydrogenase C-Reactive Protein Total Protein Albumin Arterial Blood Glucose Coronavirus (PCR) 05/21/21 05/21/21 05/22/21 16:22 20:43 05:14 WBC MCV MCH MCHC RDW Lymph % (Auto) [place] % (Auto) Eos % (Auto) Lymph # (Auto) [place] # (Auto) Eos # (Auto) Baso # (Auto) Seg Neutrophils % Seg Neuts % (Manual) Lymphocytes % (Manual) Seg Neutrophils # Seg Neutrophils # Man Lymphocytes # (Manual) D-Dimer ABG pH POC ABG pCO2 POC ABG pO2 ABG pO2 ABG HCO3 ABG O2 Saturation ABG Base Excess ABG Oxyhemoglobin ABG Sodium ABG Chloride ABG Glucose Oxyhemoglobin Carboxyhemoglobin Sodium Potassium Chloride Carbon Dioxide BUN Creatinine Glucose POC Glucose 244 H 299 H 140 H Hemoglobin A1c Magnesium Ferritin AST ALT Alkaline Phosphatase Lactate Dehydrogenase C-Reactive Protein Total Protein Albumin Arterial Blood Glucose Coronavirus (PCR) 05/22/21 05/22/21 05/22/21 08:45 11:54 16:15 WBC MCV MCH MCHC RDW Lymph % (Auto) [place] % (Auto) Eos % (Auto) Lymph # (Auto) [place] # (Auto) Eos # (Auto) Baso # (Auto) Seg Neutrophils % Seg Neuts % (Manual) Lymphocytes % (Manual) Seg Neutrophils # Seg Neutrophils # Man Lymphocytes # (Manual) D-Dimer ABG pH POC ABG pCO2 POC ABG pO2 ABG pO2 ABG HCO3 ABG O2 Saturation ABG Base Excess ABG Oxyhemoglobin ABG Sodium ABG Chloride ABG Glucose Oxyhemoglobin Carboxyhemoglobin Sodium Potassium Chloride Carbon Dioxide BUN Creatinine Glucose POC Glucose 133 H 265 H 221 H Hemoglobin A1c Magnesium Ferritin AST ALT Alkaline Phosphatase Lactate Dehydrogenase C-Reactive Protein Total Protein Albumin Arterial Blood Glucose Coronavirus (PCR) 05/22/21 05/23/21 05/23/21 21:43 08:20 09:50 WBC MCV MCH MCHC RDW Lymph % (Auto) [place] % (Auto) Eos % (Auto) Lymph # (Auto) [place] # (Auto) Eos # (Auto) Baso # (Auto) Seg Neutrophils % Seg Neuts % (Manual) Lymphocytes % (Manual) Seg Neutrophils # Seg Neutrophils # Man Lymphocytes # (Manual) D-Dimer 910.38 H ABG pH POC ABG pCO2 POC ABG pO2 ABG pO2 ABG HCO3 ABG O2 Saturation ABG Base Excess ABG Oxyhemoglobin ABG Sodium ABG Chloride ABG Glucose Oxyhemoglobin Carboxyhemoglobin Sodium Potassium Chloride Carbon Dioxide BUN Creatinine Glucose POC Glucose 262 H 140 H Hemoglobin A1c Magnesium Ferritin AST ALT Alkaline Phosphatase Lactate Dehydrogenase C-Reactive Protein Total Protein Albumin Arterial Blood Glucose Coronavirus (PCR) 05/23/21 05/23/21 05/23/21 09:50 09:50 10:52 WBC MCV MCH MCHC RDW Lymph % (Auto) [place] % (Auto) Eos % (Auto) Lymph # (Auto) [place] # (Auto) Eos # (Auto) Baso # (Auto) Seg Neutrophils % Seg Neuts % (Manual) Lymphocytes % (Manual) Seg Neutrophils # Seg Neutrophils # Man Lymphocytes # (Manual) D-Dimer ABG pH POC ABG pCO2 POC ABG pO2 ABG pO2 ABG HCO3 ABG O2 Saturation ABG Base Excess ABG Oxyhemoglobin ABG Sodium ABG Chloride ABG Glucose Oxyhemoglobin Carboxyhemoglobin Sodium Potassium Chloride Carbon Dioxide BUN Creatinine Glucose POC Glucose 241 H Hemoglobin A1c Magnesium Ferritin 244.9 H AST ALT Alkaline Phosphatase Lactate Dehydrogenase 584 H C-Reactive Protein Total Protein Albumin Arterial Blood Glucose Coronavirus (PCR) 05/23/21 05/23/21 05/24/21 17:24 21:52 07:44 WBC MCV MCH MCHC RDW Lymph % (Auto) [place] % (Auto) Eos % (Auto) Lymph # (Auto) [place] # (Auto) Eos # (Auto) Baso # (Auto) Seg Neutrophils % Seg Neuts % (Manual) Lymphocytes % (Manual) Seg Neutrophils # Seg Neutrophils # Man Lymphocytes # (Manual) D-Dimer ABG pH POC ABG pCO2 POC ABG pO2 ABG pO2 ABG HCO3 ABG O2 Saturation ABG Base Excess ABG Oxyhemoglobin ABG Sodium ABG Chloride ABG Glucose Oxyhemoglobin Carboxyhemoglobin Sodium Potassium Chloride Carbon Dioxide BUN Creatinine Glucose POC Glucose 197 H 289 H 161 H Hemoglobin A1c Magnesium Ferritin AST ALT Alkaline Phosphatase Lactate Dehydrogenase C-Reactive Protein Total Protein Albumin Arterial Blood Glucose Coronavirus (PCR) 05/24/21 05/24/21 05/24/21 11:17 17:51 21:26 WBC MCV MCH MCHC RDW Lymph % (Auto) [place] % (Auto) Eos % (Auto) Lymph # (Auto) [place] # (Auto) Eos # (Auto) Baso # (Auto) Seg Neutrophils % Seg Neuts % (Manual) Lymphocytes % (Manual) Seg Neutrophils # Seg Neutrophils # Man Lymphocytes # (Manual) D-Dimer ABG pH POC ABG pCO2 POC ABG pO2 ABG pO2 ABG HCO3 ABG O2 Saturation ABG Base Excess ABG Oxyhemoglobin ABG Sodium ABG Chloride ABG Glucose Oxyhemoglobin Carboxyhemoglobin Sodium Potassium Chloride Carbon Dioxide BUN Creatinine Glucose POC Glucose 308 H 175 H 198 H Hemoglobin A1c Magnesium Ferritin AST ALT Alkaline Phosphatase Lactate Dehydrogenase C-Reactive Protein Total Protein Albumin Arterial Blood Glucose Coronavirus (PCR) 05/25/21 05/25/21 05/25/21 08:14 11:13 17:13 WBC MCV MCH MCHC RDW Lymph % (Auto) [place] % (Auto) Eos % (Auto) Lymph # (Auto) [place] # (Auto) Eos # (Auto) Baso # (Auto) Seg Neutrophils % Seg Neuts % (Manual) Lymphocytes % (Manual) Seg Neutrophils # Seg Neutrophils # Man Lymphocytes # (Manual) D-Dimer ABG pH POC ABG pCO2 POC ABG pO2 ABG pO2 ABG HCO3 ABG O2 Saturation ABG Base Excess ABG Oxyhemoglobin ABG Sodium ABG Chloride ABG Glucose Oxyhemoglobin Carboxyhemoglobin Sodium Potassium Chloride Carbon Dioxide BUN Creatinine Glucose POC Glucose 203 H 339 H 235 H Hemoglobin A1c Magnesium Ferritin AST ALT Alkaline Phosphatase Lactate Dehydrogenase C-Reactive Protein Total Protein Albumin Arterial Blood Glucose Coronavirus (PCR) 05/25/21 05/26/21 05/26/21 21:03 07:33 11:19 WBC MCV MCH MCHC RDW Lymph % (Auto) [place] % (Auto) Eos % (Auto) Lymph # (Auto) [place] # (Auto) Eos # (Auto) Baso # (Auto) Seg Neutrophils % Seg Neuts % (Manual) Lymphocytes % (Manual) Seg Neutrophils # Seg Neutrophils # Man Lymphocytes # (Manual) D-Dimer ABG pH POC ABG pCO2 POC ABG pO2 ABG pO2 ABG HCO3 ABG O2 Saturation ABG Base Excess ABG Oxyhemoglobin ABG Sodium ABG Chloride ABG Glucose Oxyhemoglobin Carboxyhemoglobin Sodium Potassium Chloride Carbon Dioxide BUN Creatinine Glucose POC Glucose 263 H 156 H 288 H Hemoglobin A1c Magnesium Ferritin AST ALT Alkaline Phosphatase Lactate Dehydrogenase C-Reactive Protein Total Protein Albumin Arterial Blood Glucose Coronavirus (PCR) 05/26/21 05/26/21 05/27/21 16:26 20:55 07:38 WBC MCV MCH MCHC RDW Lymph % (Auto) [place] % (Auto) Eos % (Auto) Lymph # (Auto) [place] # (Auto) Eos # (Auto) Baso # (Auto) Seg Neutrophils % Seg Neuts % (Manual) Lymphocytes % (Manual) Seg Neutrophils # Seg Neutrophils # Man Lymphocytes # (Manual) D-Dimer ABG pH POC ABG pCO2 POC ABG pO2 ABG pO2 ABG HCO3 ABG O2 Saturation ABG Base Excess ABG Oxyhemoglobin ABG Sodium ABG Chloride ABG Glucose Oxyhemoglobin Carboxyhemoglobin Sodium Potassium Chloride Carbon Dioxide BUN Creatinine Glucose POC Glucose 286 H 293 H 115 H Hemoglobin A1c Magnesium Ferritin AST ALT Alkaline Phosphatase Lactate Dehydrogenase C-Reactive Protein Total Protein Albumin Arterial Blood Glucose Coronavirus (PCR) 05/27/21 05/27/21 05/27/21 11:46 15:58 21:02 WBC MCV MCH MCHC RDW Lymph % (Auto) [place] % (Auto) Eos % (Auto) Lymph # (Auto) [place] # (Auto) Eos # (Auto) Baso # (Auto) Seg Neutrophils % Seg Neuts % (Manual) Lymphocytes % (Manual) Seg Neutrophils # Seg Neutrophils # Man Lymphocytes # (Manual) D-Dimer ABG pH POC ABG pCO2 POC ABG pO2 ABG pO2 ABG HCO3 ABG O2 Saturation ABG Base Excess ABG Oxyhemoglobin ABG Sodium ABG Chloride ABG Glucose Oxyhemoglobin Carboxyhemoglobin Sodium Potassium Chloride Carbon Dioxide BUN Creatinine Glucose POC Glucose 260 H 318 H 246 H Hemoglobin A1c Magnesium Ferritin AST ALT Alkaline Phosphatase Lactate Dehydrogenase C-Reactive Protein Total Protein Albumin Arterial Blood Glucose Coronavirus (PCR) 05/28/21 05/28/21 05/28/21 07:34 11:31 16:36 WBC MCV MCH MCHC RDW Lymph % (Auto) [place] % (Auto) Eos % (Auto) Lymph # (Auto) [place] # (Auto) Eos # (Auto) Baso # (Auto) Seg Neutrophils % Seg Neuts % (Manual) Lymphocytes % (Manual) Seg Neutrophils # Seg Neutrophils # Man Lymphocytes # (Manual) D-Dimer ABG pH POC ABG pCO2 POC ABG pO2 ABG pO2 ABG HCO3 ABG O2 Saturation ABG Base Excess ABG Oxyhemoglobin ABG Sodium ABG Chloride ABG Glucose Oxyhemoglobin Carboxyhemoglobin Sodium Potassium Chloride Carbon Dioxide BUN Creatinine Glucose POC Glucose 185 H 297 H 183 H Hemoglobin A1c Magnesium Ferritin AST ALT Alkaline Phosphatase Lactate Dehydrogenase C-Reactive Protein Total Protein Albumin Arterial Blood Glucose Coronavirus (PCR) 05/28/21 05/29/21 05/29/21 21:19 07:34 11:19 WBC MCV MCH MCHC RDW Lymph % (Auto) [place] % (Auto) Eos % (Auto) Lymph # (Auto) [place] # (Auto) Eos # (Auto) Baso # (Auto) Seg Neutrophils % Seg Neuts % (Manual) Lymphocytes % (Manual) Seg Neutrophils # Seg Neutrophils # Man Lymphocytes # (Manual) D-Dimer ABG pH POC ABG pCO2 POC ABG pO2 ABG pO2 ABG HCO3 ABG O2 Saturation ABG Base Excess ABG Oxyhemoglobin ABG Sodium ABG Chloride ABG Glucose Oxyhemoglobin Carboxyhemoglobin Sodium Potassium Chloride Carbon Dioxide BUN Creatinine Glucose POC Glucose 274 H 139 H 293 H Hemoglobin A1c Magnesium Ferritin AST ALT Alkaline Phosphatase Lactate Dehydrogenase C-Reactive Protein Total Protein Albumin Arterial Blood Glucose Coronavirus (PCR) 05/29/21 05/29/21 05/30/21 16:36 22:44 05:55 WBC MCV MCH MCHC RDW 21.3 H Lymph % (Auto) 8.0 L [place] % (Auto) Eos % (Auto) Lymph # (Auto) 0.6 L [place] # (Auto) Eos # (Auto) Baso # (Auto) Seg Neutrophils % 88.6 H Seg Neuts % (Manual) Lymphocytes % (Manual) Seg Neutrophils # Seg Neutrophils # Man Lymphocytes # (Manual) D-Dimer ABG pH POC ABG pCO2 POC ABG pO2 ABG pO2 ABG HCO3 ABG O2 Saturation ABG Base Excess ABG Oxyhemoglobin ABG Sodium ABG Chloride ABG Glucose Oxyhemoglobin Carboxyhemoglobin Sodium Potassium Chloride Carbon Dioxide BUN Creatinine Glucose POC Glucose 299 H 160 H Hemoglobin A1c Magnesium Ferritin AST ALT Alkaline Phosphatase Lactate Dehydrogenase C-Reactive Protein Total Protein Albumin Arterial Blood Glucose Coronavirus (PCR) 05/30/21 05/30/21 05/30/21 05:55 08:04 11:13 WBC MCV MCH MCHC RDW Lymph % (Auto) [place] % (Auto) Eos % (Auto) Lymph # (Auto) [place] # (Auto) Eos # (Auto) Baso # (Auto) Seg Neutrophils % Seg Neuts % (Manual) Lymphocytes % (Manual) Seg Neutrophils # Seg Neutrophils # Man Lymphocytes # (Manual) D-Dimer ABG pH POC ABG pCO2 POC ABG pO2 ABG pO2 ABG HCO3 ABG O2 Saturation ABG Base Excess ABG Oxyhemoglobin ABG Sodium ABG Chloride ABG Glucose Oxyhemoglobin Carboxyhemoglobin Sodium Potassium Chloride Carbon Dioxide BUN 19 H Creatinine 0.2 L Glucose 209 H POC Glucose 157 H 275 H Hemoglobin A1c Magnesium Ferritin AST ALT Alkaline Phosphatase Lactate Dehydrogenase C-Reactive Protein Total Protein Albumin Arterial Blood Glucose Coronavirus (PCR) 05/30/21 05/30/21 05/31/21 17:08 22:12 07:36 WBC MCV MCH MCHC RDW Lymph % (Auto) [place] % (Auto) Eos % (Auto) Lymph # (Auto) [place] # (Auto) Eos # (Auto) Baso # (Auto) Seg Neutrophils % Seg Neuts % (Manual) Lymphocytes % (Manual) Seg Neutrophils # Seg Neutrophils # Man Lymphocytes # (Manual) D-Dimer ABG pH POC ABG pCO2 POC ABG pO2 ABG pO2 ABG HCO3 ABG O2 Saturation ABG Base Excess ABG Oxyhemoglobin ABG Sodium ABG Chloride ABG Glucose Oxyhemoglobin Carboxyhemoglobin Sodium Potassium Chloride Carbon Dioxide BUN Creatinine Glucose POC Glucose 154 H 275 H 138 H Hemoglobin A1c Magnesium Ferritin AST ALT Alkaline Phosphatase Lactate Dehydrogenase C-Reactive Protein Total Protein Albumin Arterial Blood Glucose Coronavirus (PCR) 05/31/21 05/31/21 05/31/21 11:17 16:55 21:25 WBC MCV MCH MCHC RDW Lymph % (Auto) [place] % (Auto) Eos % (Auto) Lymph # (Auto) [place] # (Auto) Eos # (Auto) Baso # (Auto) Seg Neutrophils % Seg Neuts % (Manual) Lymphocytes % (Manual) Seg Neutrophils # Seg Neutrophils # Man Lymphocytes # (Manual) D-Dimer ABG pH POC ABG pCO2 POC ABG pO2 ABG pO2 ABG HCO3 ABG O2 Saturation ABG Base Excess ABG Oxyhemoglobin ABG Sodium ABG Chloride ABG Glucose Oxyhemoglobin Carboxyhemoglobin Sodium Potassium Chloride Carbon Dioxide BUN Creatinine Glucose POC Glucose 258 H 215 H 318 H Hemoglobin A1c Magnesium Ferritin AST ALT Alkaline Phosphatase Lactate Dehydrogenase C-Reactive Protein Total Protein Albumin Arterial Blood Glucose Coronavirus (PCR) 06/01/21 06/01/21 06/01/21 07:23 11:38 16:52 WBC MCV MCH MCHC RDW Lymph % (Auto) [place] % (Auto) Eos % (Auto) Lymph # (Auto) [place] # (Auto) Eos # (Auto) Baso # (Auto) Seg Neutrophils % Seg Neuts % (Manual) Lymphocytes % (Manual) Seg Neutrophils # Seg Neutrophils # Man Lymphocytes # (Manual) D-Dimer ABG pH POC ABG pCO2 POC ABG pO2 ABG pO2 ABG HCO3 ABG O2 Saturation ABG Base Excess ABG Oxyhemoglobin ABG Sodium ABG Chloride ABG Glucose Oxyhemoglobin Carboxyhemoglobin Sodium Potassium Chloride Carbon Dioxide BUN Creatinine Glucose POC Glucose 157 H 259 H 150 H Hemoglobin A1c Magnesium Ferritin AST ALT Alkaline Phosphatase Lactate Dehydrogenase C-Reactive Protein Total Protein Albumin Arterial Blood Glucose Coronavirus (PCR) 06/01/21 06/02/21 06/02/21 23:16 05:34 05:34 WBC MCV MCH MCHC RDW 21.3 H Lymph % (Auto) 9.6 L [place] % (Auto) Eos % (Auto) Lymph # (Auto) 0.6 L [place] # (Auto) Eos # (Auto) Baso # (Auto) Seg Neutrophils % 86.2 H Seg Neuts % (Manual) Lymphocytes % (Manual) Seg Neutrophils # Seg Neutrophils # Man Lymphocytes # (Manual) D-Dimer ABG pH POC ABG pCO2 POC ABG pO2 ABG pO2 ABG HCO3 ABG O2 Saturation ABG Base Excess ABG Oxyhemoglobin ABG Sodium ABG Chloride ABG Glucose Oxyhemoglobin Carboxyhemoglobin Sodium 136 L Potassium Chloride Carbon Dioxide BUN Creatinine 0.2 L Glucose 186 H POC Glucose 247 H Hemoglobin A1c Magnesium Ferritin AST ALT 69 H Alkaline Phosphatase Lactate Dehydrogenase C-Reactive Protein Total Protein 6.1 L Albumin 3.2 L Arterial Blood Glucose Coronavirus (PCR) 06/02/21 06/02/21 06/02/21 11:25 18:23 21:32 WBC MCV MCH MCHC RDW Lymph % (Auto) [place] % (Auto) Eos % (Auto) Lymph # (Auto) [place] # (Auto) Eos # (Auto) Baso # (Auto) Seg Neutrophils % Seg Neuts % (Manual) Lymphocytes % (Manual) Seg Neutrophils # Seg Neutrophils # Man Lymphocytes # (Manual) D-Dimer ABG pH POC ABG pCO2 POC ABG pO2 ABG pO2 ABG HCO3 ABG O2 Saturation ABG Base Excess ABG Oxyhemoglobin ABG Sodium ABG Chloride ABG Glucose Oxyhemoglobin Carboxyhemoglobin Sodium Potassium Chloride Carbon Dioxide BUN Creatinine Glucose POC Glucose 157 H 299 H 246 H Hemoglobin A1c Magnesium Ferritin AST ALT Alkaline Phosphatase Lactate Dehydrogenase C-Reactive Protein Total Protein Albumin Arterial Blood Glucose Coronavirus (PCR) 06/03/21 06/03/21 06/03/21 08:12 12:21 17:31 WBC MCV MCH MCHC RDW Lymph % (Auto) [place] % (Auto) Eos % (Auto) Lymph # (Auto) [place] # (Auto) Eos # (Auto) Baso # (Auto) Seg Neutrophils % Seg Neuts % (Manual) Lymphocytes % (Manual) Seg Neutrophils # Seg Neutrophils # Man Lymphocytes # (Manual) D-Dimer ABG pH POC ABG pCO2 POC ABG pO2 ABG pO2 ABG HCO3 ABG O2 Saturation ABG Base Excess ABG Oxyhemoglobin ABG Sodium ABG Chloride ABG Glucose Oxyhemoglobin Carboxyhemoglobin Sodium Potassium Chloride Carbon Dioxide BUN Creatinine Glucose POC Glucose 153 H 302 H 252 H Hemoglobin A1c Magnesium Ferritin AST ALT Alkaline Phosphatase Lactate Dehydrogenase C-Reactive Protein Total Protein Albumin Arterial Blood Glucose Coronavirus (PCR) 06/03/21 06/04/21 06/04/21 22:08 11:12 16:01 WBC MCV MCH MCHC RDW Lymph % (Auto) [place] % (Auto) Eos % (Auto) Lymph # (Auto) [place] # (Auto) Eos # (Auto) Baso # (Auto) Seg Neutrophils % Seg Neuts % (Manual) Lymphocytes % (Manual) Seg Neutrophils # Seg Neutrophils # Man Lymphocytes # (Manual) D-Dimer ABG pH POC ABG pCO2 POC ABG pO2 ABG pO2 ABG HCO3 ABG O2 Saturation ABG Base Excess ABG Oxyhemoglobin ABG Sodium ABG Chloride ABG Glucose Oxyhemoglobin Carboxyhemoglobin Sodium Potassium Chloride Carbon Dioxide BUN Creatinine Glucose POC Glucose 224 H 259 H 238 H Hemoglobin A1c Magnesium Ferritin AST ALT Alkaline Phosphatase Lactate Dehydrogenase C-Reactive Protein Total Protein Albumin Arterial Blood Glucose Coronavirus (PCR) 06/04/21 06/05/21 06/05/21 21:26 05:26 05:26 WBC MCV MCH MCHC RDW Lymph % (Auto) [place] % (Auto) Eos % (Auto) Lymph # (Auto) [place] # (Auto) Eos # (Auto) Baso # (Auto) Seg Neutrophils % Seg Neuts % (Manual) Lymphocytes % (Manual) Seg Neutrophils # Seg Neutrophils # Man Lymphocytes # (Manual) D-Dimer 488.49 H ABG pH POC ABG pCO2 POC ABG pO2 ABG pO2 ABG HCO3 ABG O2 Saturation ABG Base Excess ABG Oxyhemoglobin ABG Sodium ABG Chloride ABG Glucose Oxyhemoglobin Carboxyhemoglobin Sodium Potassium Chloride Carbon Dioxide BUN Creatinine 0.2 L Glucose 198 H POC Glucose 257 H Hemoglobin A1c Magnesium Ferritin AST ALT Alkaline Phosphatase Lactate Dehydrogenase 475 H C-Reactive Protein Total Protein Albumin Arterial Blood Glucose Coronavirus (PCR) 06/05/21 06/05/21 06/05/21 07:20 08:30 11:00 WBC MCV MCH MCHC RDW Lymph % (Auto) [place] % (Auto) Eos % (Auto) Lymph # (Auto) [place] # (Auto) Eos # (Auto) Baso # (Auto) Seg Neutrophils % Seg Neuts % (Manual) Lymphocytes % (Manual) Seg Neutrophils # Seg Neutrophils # Man Lymphocytes # (Manual) D-Dimer ABG pH POC ABG pCO2 POC ABG pO2 ABG pO2 ABG HCO3 ABG O2 Saturation ABG Base Excess ABG Oxyhemoglobin ABG Sodium ABG Chloride ABG Glucose Oxyhemoglobin Carboxyhemoglobin Sodium Potassium Chloride Carbon Dioxide BUN Creatinine Glucose POC Glucose 146 H 246 H Hemoglobin A1c Magnesium Ferritin AST ALT Alkaline Phosphatase Lactate Dehydrogenase C-Reactive Protein Total Protein Albumin Arterial Blood Glucose Coronavirus (PCR) Positive A 06/05/21 06/05/21 06/06/21 16:50 22:30 07:57 WBC MCV MCH MCHC RDW Lymph % (Auto) [place] % (Auto) Eos % (Auto) Lymph # (Auto) [place] # (Auto) Eos # (Auto) Baso # (Auto) Seg Neutrophils % Seg Neuts % (Manual) Lymphocytes % (Manual) Seg Neutrophils # Seg Neutrophils # Man Lymphocytes # (Manual) D-Dimer ABG pH POC ABG pCO2 POC ABG pO2 ABG pO2 ABG HCO3 ABG O2 Saturation ABG Base Excess ABG Oxyhemoglobin ABG Sodium ABG Chloride ABG Glucose Oxyhemoglobin Carboxyhemoglobin Sodium Potassium Chloride Carbon Dioxide BUN Creatinine Glucose POC Glucose 240 H 174 H 120 H Hemoglobin A1c Magnesium Ferritin AST ALT Alkaline Phosphatase Lactate Dehydrogenase C-Reactive Protein Total Protein Albumin Arterial Blood Glucose Coronavirus (PCR) 06/06/21 06/06/21 06/06/21 11:14 16:50 21:11 WBC MCV MCH MCHC RDW Lymph % (Auto) [place] % (Auto) Eos % (Auto) Lymph # (Auto) [place] # (Auto) Eos # (Auto) Baso # (Auto) Seg Neutrophils % Seg Neuts % (Manual) Lymphocytes % (Manual) Seg Neutrophils # Seg Neutrophils # Man Lymphocytes # (Manual) D-Dimer ABG pH POC ABG pCO2 POC ABG pO2 ABG pO2 ABG HCO3 ABG O2 Saturation ABG Base Excess ABG Oxyhemoglobin ABG Sodium ABG Chloride ABG Glucose Oxyhemoglobin Carboxyhemoglobin Sodium Potassium Chloride Carbon Dioxide BUN Creatinine Glucose POC Glucose 267 H 218 H 124 H Hemoglobin A1c Magnesium Ferritin AST ALT Alkaline Phosphatase Lactate Dehydrogenase C-Reactive Protein Total Protein Albumin Arterial Blood Glucose Coronavirus (PCR) 06/07/21 06/07/21 06/08/21 11:58 15:59 07:59 WBC MCV MCH MCHC RDW Lymph % (Auto) [place] % (Auto) Eos % (Auto) Lymph # (Auto) [place] # (Auto) Eos # (Auto) Baso # (Auto) Seg Neutrophils % Seg Neuts % (Manual) Lymphocytes % (Manual) Seg Neutrophils # Seg Neutrophils # Man Lymphocytes # (Manual) D-Dimer ABG pH POC ABG pCO2 POC ABG pO2 ABG pO2 ABG HCO3 ABG O2 Saturation ABG Base Excess ABG Oxyhemoglobin ABG Sodium ABG Chloride ABG Glucose Oxyhemoglobin Carboxyhemoglobin Sodium Potassium Chloride Carbon Dioxide BUN Creatinine Glucose POC Glucose 219 H 208 H 192 H Hemoglobin A1c Magnesium Ferritin AST ALT Alkaline Phosphatase Lactate Dehydrogenase C-Reactive Protein Total Protein Albumin Arterial Blood Glucose Coronavirus (PCR) 06/08/21 06/08/21 06/09/21 11:26 23:28 07:33 WBC MCV MCH MCHC RDW Lymph % (Auto) [place] % (Auto) Eos % (Auto) Lymph # (Auto) [place] # (Auto) Eos # (Auto) Baso # (Auto) Seg Neutrophils % Seg Neuts % (Manual) Lymphocytes % (Manual) Seg Neutrophils # Seg Neutrophils # Man Lymphocytes # (Manual) D-Dimer ABG pH POC ABG pCO2 POC ABG pO2 ABG pO2 ABG HCO3 ABG O2 Saturation ABG Base Excess ABG Oxyhemoglobin ABG Sodium ABG Chloride ABG Glucose Oxyhemoglobin Carboxyhemoglobin Sodium Potassium Chloride Carbon Dioxide BUN Creatinine Glucose POC Glucose 307 H 138 H 145 H Hemoglobin A1c Magnesium Ferritin AST ALT Alkaline Phosphatase Lactate Dehydrogenase C-Reactive Protein Total Protein Albumin Arterial Blood Glucose Coronavirus (PCR) 06/09/21 06/09/21 06/09/21 11:01 15:47 21:43 WBC MCV MCH MCHC RDW Lymph % (Auto) [place] % (Auto) Eos % (Auto) Lymph # (Auto) [place] # (Auto) Eos # (Auto) Baso # (Auto) Seg Neutrophils % Seg Neuts % (Manual) Lymphocytes % (Manual) Seg Neutrophils # Seg Neutrophils # Man Lymphocytes # (Manual) D-Dimer ABG pH POC ABG pCO2 POC ABG pO2 ABG pO2 ABG HCO3 ABG O2 Saturation ABG Base Excess ABG Oxyhemoglobin ABG Sodium ABG Chloride ABG Glucose Oxyhemoglobin Carboxyhemoglobin Sodium Potassium Chloride Carbon Dioxide BUN Creatinine Glucose POC Glucose 266 H 305 H 223 H Hemoglobin A1c Magnesium Ferritin AST ALT Alkaline Phosphatase Lactate Dehydrogenase C-Reactive Protein Total Protein Albumin Arterial Blood Glucose Coronavirus (PCR) 06/10/21 06/10/21 06/10/21 08:27 12:10 17:45 WBC MCV MCH MCHC RDW Lymph % (Auto) [place] % (Auto) Eos % (Auto) Lymph # (Auto) [place] # (Auto) Eos # (Auto) Baso # (Auto) Seg Neutrophils % Seg Neuts % (Manual) Lymphocytes % (Manual) Seg Neutrophils # Seg Neutrophils # Man Lymphocytes # (Manual) D-Dimer ABG pH POC ABG pCO2 POC ABG pO2 ABG pO2 ABG HCO3 ABG O2 Saturation ABG Base Excess ABG Oxyhemoglobin ABG Sodium ABG Chloride ABG Glucose Oxyhemoglobin Carboxyhemoglobin Sodium Potassium Chloride Carbon Dioxide BUN Creatinine Glucose POC Glucose 174 H 306 H 210 H Hemoglobin A1c Magnesium Ferritin AST ALT Alkaline Phosphatase Lactate Dehydrogenase C-Reactive Protein Total Protein Albumin Arterial Blood Glucose Coronavirus (PCR) 06/10/21 06/11/21 06/11/21 21:45 09:38 09:38 WBC MCV MCH MCHC RDW 20.9 H Lymph % (Auto) [place] % (Auto) Eos % (Auto) Lymph # (Auto) [place] # (Auto) Eos # (Auto) Baso # (Auto) Seg Neutrophils % Seg Neuts % (Manual) Lymphocytes % (Manual) Seg Neutrophils # Seg Neutrophils # Man Lymphocytes # (Manual) D-Dimer ABG pH POC ABG pCO2 POC ABG pO2 ABG pO2 ABG HCO3 ABG O2 Saturation ABG Base Excess ABG Oxyhemoglobin ABG Sodium ABG Chloride ABG Glucose Oxyhemoglobin Carboxyhemoglobin Sodium 135 L Potassium Chloride 90.8 L Carbon Dioxide 36 H BUN 29 H Creatinine 0.2 L Glucose 258 H POC Glucose 262 H Hemoglobin A1c Magnesium Ferritin AST ALT Alkaline Phosphatase Lactate Dehydrogenase C-Reactive Protein Total Protein Albumin Arterial Blood Glucose Coronavirus (PCR) 06/11/21 06/11/21 06/11/21 11:20 15:49 22:57 WBC MCV MCH MCHC RDW Lymph % (Auto) [place] % (Auto) Eos % (Auto) Lymph # (Auto) [place] # (Auto) Eos # (Auto) Baso # (Auto) Seg Neutrophils % Seg Neuts % (Manual) Lymphocytes % (Manual) Seg Neutrophils # Seg Neutrophils # Man Lymphocytes # (Manual) D-Dimer ABG pH POC ABG pCO2 POC ABG pO2 ABG pO2 ABG HCO3 ABG O2 Saturation ABG Base Excess ABG Oxyhemoglobin ABG Sodium ABG Chloride ABG Glucose Oxyhemoglobin Carboxyhemoglobin Sodium Potassium Chloride Carbon Dioxide BUN Creatinine Glucose POC Glucose 269 H 206 H 211 H Hemoglobin A1c Magnesium Ferritin AST ALT Alkaline Phosphatase Lactate Dehydrogenase C-Reactive Protein Total Protein Albumin Arterial Blood Glucose Coronavirus (PCR) 06/12/21 06/12/21 06/12/21 08:07 11:24 18:08 WBC MCV MCH MCHC RDW Lymph % (Auto) [place] % (Auto) Eos % (Auto) Lymph # (Auto) [place] # (Auto) Eos # (Auto) Baso # (Auto) Seg Neutrophils % Seg Neuts % (Manual) Lymphocytes % (Manual) Seg Neutrophils # Seg Neutrophils # Man Lymphocytes # (Manual) D-Dimer ABG pH POC ABG pCO2 POC ABG pO2 ABG pO2 ABG HCO3 ABG O2 Saturation ABG Base Excess ABG Oxyhemoglobin ABG Sodium ABG Chloride ABG Glucose Oxyhemoglobin Carboxyhemoglobin Sodium Potassium Chloride Carbon Dioxide BUN Creatinine Glucose POC Glucose 149 H 270 H 166 H Hemoglobin A1c Magnesium Ferritin AST ALT Alkaline Phosphatase Lactate Dehydrogenase C-Reactive Protein Total Protein Albumin Arterial Blood Glucose Coronavirus (PCR) 06/12/21 06/13/21 06/13/21 20:22 07:50 11:18 WBC MCV MCH MCHC RDW Lymph % (Auto) [place] % (Auto) Eos % (Auto) Lymph # (Auto) [place] # (Auto) Eos # (Auto) Baso # (Auto) Seg Neutrophils % Seg Neuts % (Manual) Lymphocytes % (Manual) Seg Neutrophils # Seg Neutrophils # Man Lymphocytes # (Manual) D-Dimer ABG pH POC ABG pCO2 POC ABG pO2 ABG pO2 ABG HCO3 ABG O2 Saturation ABG Base Excess ABG Oxyhemoglobin ABG Sodium ABG Chloride ABG Glucose Oxyhemoglobin Carboxyhemoglobin Sodium Potassium Chloride Carbon Dioxide BUN Creatinine Glucose POC Glucose 155 H 163 H 293 H Hemoglobin A1c Magnesium Ferritin AST ALT Alkaline Phosphatase Lactate Dehydrogenase C-Reactive Protein Total Protein Albumin Arterial Blood Glucose Coronavirus (PCR) 06/13/21 06/13/21 06/14/21 16:41 21:00 07:41 WBC MCV MCH MCHC RDW Lymph % (Auto) [place] % (Auto) Eos % (Auto) Lymph # (Auto) [place] # (Auto) Eos # (Auto) Baso # (Auto) Seg Neutrophils % Seg Neuts % (Manual) Lymphocytes % (Manual) Seg Neutrophils # Seg Neutrophils # Man Lymphocytes # (Manual) D-Dimer ABG pH POC ABG pCO2 POC ABG pO2 ABG pO2 ABG HCO3 ABG O2 Saturation ABG Base Excess ABG Oxyhemoglobin ABG Sodium ABG Chloride ABG Glucose Oxyhemoglobin Carboxyhemoglobin Sodium Potassium Chloride Carbon Dioxide BUN Creatinine Glucose POC Glucose 232 H 183 H 52 L Hemoglobin A1c Magnesium Ferritin AST ALT Alkaline Phosphatase Lactate Dehydrogenase C-Reactive Protein Total Protein Albumin Arterial Blood Glucose Coronavirus (PCR) 06/14/21 06/14/21 06/14/21 11:44 17:44 21:44 WBC MCV MCH MCHC RDW Lymph % (Auto) [place] % (Auto) Eos % (Auto) Lymph # (Auto) [place] # (Auto) Eos # (Auto) Baso # (Auto) Seg Neutrophils % Seg Neuts % (Manual) Lymphocytes % (Manual) Seg Neutrophils # Seg Neutrophils # Man Lymphocytes # (Manual) D-Dimer ABG pH POC ABG pCO2 POC ABG pO2 ABG pO2 ABG HCO3 ABG O2 Saturation ABG Base Excess ABG Oxyhemoglobin ABG Sodium ABG Chloride ABG Glucose Oxyhemoglobin Carboxyhemoglobin Sodium Potassium Chloride Carbon Dioxide BUN Creatinine Glucose POC Glucose 205 H 293 H 288 H Hemoglobin A1c Magnesium Ferritin AST ALT Alkaline Phosphatase Lactate Dehydrogenase C-Reactive Protein Total Protein Albumin Arterial Blood Glucose Coronavirus (PCR) 06/15/21 06/15/21 06/15/21 08:00 08:00 11:40 WBC MCV MCH 33 H MCHC 35 H RDW 20.3 H Lymph % (Auto) [place] % (Auto) Eos % (Auto) Lymph # (Auto) [place] # (Auto) Eos # (Auto) Baso # (Auto) Seg Neutrophils % Seg Neuts % (Manual) Lymphocytes % (Manual) Seg Neutrophils # Seg Neutrophils # Man Lymphocytes # (Manual) D-Dimer ABG pH POC ABG pCO2 POC ABG pO2 ABG pO2 ABG HCO3 ABG O2 Saturation ABG Base Excess ABG Oxyhemoglobin ABG Sodium ABG Chloride ABG Glucose Oxyhemoglobin Carboxyhemoglobin Sodium Potassium 3.2 L Chloride 95.3 L Carbon Dioxide 32 H BUN 23 H Creatinine 0.2 L Glucose 103 H POC Glucose 204 H Hemoglobin A1c Magnesium Ferritin AST ALT Alkaline Phosphatase Lactate Dehydrogenase C-Reactive Protein Total Protein Albumin Arterial Blood Glucose Coronavirus (PCR) 06/15/21 06/15/21 06/16/21 16:17 22:00 11:43 WBC MCV MCH MCHC RDW Lymph % (Auto) [place] % (Auto) Eos % (Auto) Lymph # (Auto) [place] # (Auto) Eos # (Auto) Baso # (Auto) Seg Neutrophils % Seg Neuts % (Manual) Lymphocytes % (Manual) Seg Neutrophils # Seg Neutrophils # Man Lymphocytes # (Manual) D-Dimer ABG pH POC ABG pCO2 POC ABG pO2 ABG pO2 ABG HCO3 ABG O2 Saturation ABG Base Excess ABG Oxyhemoglobin ABG Sodium ABG Chloride ABG Glucose Oxyhemoglobin Carboxyhemoglobin Sodium Potassium Chloride Carbon Dioxide BUN Creatinine Glucose POC Glucose 295 H 233 H 201 H Hemoglobin A1c Magnesium Ferritin AST ALT Alkaline Phosphatase Lactate Dehydrogenase C-Reactive Protein Total Protein Albumin Arterial Blood Glucose Coronavirus (PCR) 06/16/21 06/16/21 06/17/21 17:21 21:27 07:12 WBC MCV MCH MCHC RDW Lymph % (Auto) [place] % (Auto) Eos % (Auto) Lymph # (Auto) [place] # (Auto) Eos # (Auto) Baso # (Auto) Seg Neutrophils % Seg Neuts % (Manual) Lymphocytes % (Manual) Seg Neutrophils # Seg Neutrophils # Man Lymphocytes # (Manual) D-Dimer ABG pH POC ABG pCO2 POC ABG pO2 ABG pO2 ABG HCO3 ABG O2 Saturation ABG Base Excess ABG Oxyhemoglobin ABG Sodium ABG Chloride ABG Glucose Oxyhemoglobin Carboxyhemoglobin Sodium Potassium Chloride Carbon Dioxide BUN Creatinine Glucose POC Glucose 299 H 290 H 67 L Hemoglobin A1c Magnesium Ferritin AST ALT Alkaline Phosphatase Lactate Dehydrogenase C-Reactive Protein Total Protein Albumin Arterial Blood Glucose Coronavirus (PCR) 06/17/21 06/17/21 06/17/21 11:53 17:02 22:25 WBC MCV MCH MCHC RDW Lymph % (Auto) [place] % (Auto) Eos % (Auto) Lymph # (Auto) [place] # (Auto) Eos # (Auto) Baso # (Auto) Seg Neutrophils % Seg Neuts % (Manual) Lymphocytes % (Manual) Seg Neutrophils # Seg Neutrophils # Man Lymphocytes # (Manual) D-Dimer ABG pH POC ABG pCO2 POC ABG pO2 ABG pO2 ABG HCO3 ABG O2 Saturation ABG Base Excess ABG Oxyhemoglobin ABG Sodium ABG Chloride ABG Glucose Oxyhemoglobin Carboxyhemoglobin Sodium Potassium Chloride Carbon Dioxide BUN Creatinine Glucose POC Glucose 199 H 362 H 235 H Hemoglobin A1c Magnesium Ferritin AST ALT Alkaline Phosphatase Lactate Dehydrogenase C-Reactive Protein Total Protein Albumin Arterial Blood Glucose Coronavirus (PCR) 06/18/21 06/18/21 06/18/21 08:00 11:48 16:40 WBC MCV MCH MCHC RDW Lymph % (Auto) [place] % (Auto) Eos % (Auto) Lymph # (Auto) [place] # (Auto) Eos # (Auto) Baso # (Auto) Seg Neutrophils % Seg Neuts % (Manual) Lymphocytes % (Manual) Seg Neutrophils # Seg Neutrophils # Man Lymphocytes # (Manual) D-Dimer ABG pH POC ABG pCO2 POC ABG pO2 ABG pO2 ABG HCO3 ABG O2 Saturation ABG Base Excess ABG Oxyhemoglobin ABG Sodium ABG Chloride ABG Glucose Oxyhemoglobin Carboxyhemoglobin Sodium Potassium Chloride Carbon Dioxide BUN Creatinine Glucose POC Glucose 62 L 211 H 305 H Hemoglobin A1c Magnesium Ferritin AST ALT Alkaline Phosphatase Lactate Dehydrogenase C-Reactive Protein Total Protein Albumin Arterial Blood Glucose Coronavirus (PCR) 06/18/21 06/19/21 06/19/21 21:26 07:27 11:32 WBC MCV MCH MCHC RDW Lymph % (Auto) [place] % (Auto) Eos % (Auto) Lymph # (Auto) [place] # (Auto) Eos # (Auto) Baso # (Auto) Seg Neutrophils % Seg Neuts % (Manual) Lymphocytes % (Manual) Seg Neutrophils # Seg Neutrophils # Man Lymphocytes # (Manual) D-Dimer ABG pH POC ABG pCO2 POC ABG pO2 ABG pO2 ABG HCO3 ABG O2 Saturation ABG Base Excess ABG Oxyhemoglobin ABG Sodium ABG Chloride ABG Glucose Oxyhemoglobin Carboxyhemoglobin Sodium Potassium Chloride Carbon Dioxide BUN Creatinine Glucose POC Glucose 149 H 60 L 208 H Hemoglobin A1c Magnesium Ferritin AST ALT Alkaline Phosphatase Lactate Dehydrogenase C-Reactive Protein Total Protein Albumin Arterial Blood Glucose Coronavirus (PCR) 06/19/21 06/19/21 06/20/21 16:06 22:28 07:48 WBC MCV MCH MCHC RDW Lymph % (Auto) [place] % (Auto) Eos % (Auto) Lymph # (Auto) [place] # (Auto) Eos # (Auto) Baso # (Auto) Seg Neutrophils % Seg Neuts % (Manual) Lymphocytes % (Manual) Seg Neutrophils # Seg Neutrophils # Man Lymphocytes # (Manual) D-Dimer ABG pH POC ABG pCO2 POC ABG pO2 ABG pO2 ABG HCO3 ABG O2 Saturation ABG Base Excess ABG Oxyhemoglobin ABG Sodium ABG Chloride ABG Glucose Oxyhemoglobin Carboxyhemoglobin Sodium Potassium Chloride Carbon Dioxide BUN Creatinine Glucose POC Glucose 266 H 166 H 58 L Hemoglobin A1c Magnesium Ferritin AST ALT Alkaline Phosphatase Lactate Dehydrogenase C-Reactive Protein Total Protein Albumin Arterial Blood Glucose Coronavirus (PCR) 06/20/21 06/20/21 06/20/21 09:09 11:04 16:01 WBC MCV MCH MCHC RDW Lymph % (Auto) [place] % (Auto) Eos % (Auto) Lymph # (Auto) [place] # (Auto) Eos # (Auto) Baso # (Auto) Seg Neutrophils % Seg Neuts % (Manual) Lymphocytes % (Manual) Seg Neutrophils # Seg Neutrophils # Man Lymphocytes # (Manual) D-Dimer ABG pH POC ABG pCO2 POC ABG pO2 ABG pO2 ABG HCO3 ABG O2 Saturation ABG Base Excess ABG Oxyhemoglobin ABG Sodium ABG Chloride ABG Glucose Oxyhemoglobin Carboxyhemoglobin Sodium Potassium Chloride Carbon Dioxide BUN Creatinine Glucose POC Glucose 146 H 225 H 330 H Hemoglobin A1c Magnesium Ferritin AST ALT Alkaline Phosphatase Lactate Dehydrogenase C-Reactive Protein Total Protein Albumin Arterial Blood Glucose Coronavirus (PCR) 06/20/21 06/21/21 06/21/21 20:46 06:45 06:45 WBC MCV MCH MCHC RDW 20.0 H Lymph % (Auto) [place] % (Auto) Eos % (Auto) Lymph # (Auto) [place] # (Auto) Eos # (Auto) Baso # (Auto) Seg Neutrophils % Seg Neuts % (Manual) Lymphocytes % (Manual) Seg Neutrophils # Seg Neutrophils # Man Lymphocytes # (Manual) D-Dimer ABG pH POC ABG pCO2 POC ABG pO2 ABG pO2 ABG HCO3 ABG O2 Saturation ABG Base Excess ABG Oxyhemoglobin ABG Sodium ABG Chloride ABG Glucose Oxyhemoglobin Carboxyhemoglobin Sodium Potassium 2.9 L* Chloride 95.0 L Carbon Dioxide 31 H BUN 23 H Creatinine 0.2 L Glucose 45 L POC Glucose 215 H Hemoglobin A1c Magnesium Ferritin AST ALT Alkaline Phosphatase Lactate Dehydrogenase C-Reactive Protein Total Protein Albumin Arterial Blood Glucose Coronavirus (PCR) 06/21/21 06/21/21 06/21/21 07:38 09:06 12:40 WBC MCV MCH MCHC RDW Lymph % (Auto) [place] % (Auto) Eos % (Auto) Lymph # (Auto) [place] # (Auto) Eos # (Auto) Baso # (Auto) Seg Neutrophils % Seg Neuts % (Manual) Lymphocytes % (Manual) Seg Neutrophils # Seg Neutrophils # Man Lymphocytes # (Manual) D-Dimer ABG pH POC ABG pCO2 POC ABG pO2 ABG pO2 ABG HCO3 ABG O2 Saturation ABG Base Excess ABG Oxyhemoglobin ABG Sodium ABG Chloride ABG Glucose Oxyhemoglobin Carboxyhemoglobin Sodium Potassium Chloride Carbon Dioxide BUN Creatinine Glucose POC Glucose 50 L 196 H 205 H Hemoglobin A1c Magnesium Ferritin AST ALT Alkaline Phosphatase Lactate Dehydrogenase C-Reactive Protein Total Protein Albumin Arterial Blood Glucose Coronavirus (PCR) 06/21/21 06/22/21 06/22/21 21:36 06:25 07:15 WBC MCV MCH MCHC RDW Lymph % (Auto) [place] % (Auto) Eos % (Auto) Lymph # (Auto) [place] # (Auto) Eos # (Auto) Baso # (Auto) Seg Neutrophils % Seg Neuts % (Manual) Lymphocytes % (Manual) Seg Neutrophils # Seg Neutrophils # Man Lymphocytes # (Manual) D-Dimer ABG pH POC ABG pCO2 POC ABG pO2 ABG pO2 ABG HCO3 ABG O2 Saturation ABG Base Excess ABG Oxyhemoglobin ABG Sodium ABG Chloride ABG Glucose Oxyhemoglobin Carboxyhemoglobin Sodium Potassium Chloride Carbon Dioxide BUN 20 H Creatinine 0.2 L Glucose POC Glucose 245 H 66 L Hemoglobin A1c Magnesium Ferritin AST ALT Alkaline Phosphatase Lactate Dehydrogenase C-Reactive Protein Total Protein Albumin Arterial Blood Glucose Coronavirus (PCR) 06/22/21 06/22/21 06/22/21 11:03 16:07 22:03 WBC MCV MCH MCHC RDW Lymph % (Auto) [place] % (Auto) Eos % (Auto) Lymph # (Auto) [place] # (Auto) Eos # (Auto) Baso # (Auto) Seg Neutrophils % Seg Neuts % (Manual) Lymphocytes % (Manual) Seg Neutrophils # Seg Neutrophils # Man Lymphocytes # (Manual) D-Dimer ABG pH POC ABG pCO2 POC ABG pO2 ABG pO2 ABG HCO3 ABG O2 Saturation ABG Base Excess ABG Oxyhemoglobin ABG Sodium ABG Chloride ABG Glucose Oxyhemoglobin Carboxyhemoglobin Sodium Potassium Chloride Carbon Dioxide BUN Creatinine Glucose POC Glucose 184 H 326 H 138 H Hemoglobin A1c Magnesium Ferritin AST ALT Alkaline Phosphatase Lactate Dehydrogenase C-Reactive Protein Total Protein Albumin Arterial Blood Glucose Coronavirus (PCR) 06/23/21 06/23/21 06/23/21 07:19 10:34 16:35 WBC MCV MCH MCHC RDW Lymph % (Auto) [place] % (Auto) Eos % (Auto) Lymph # (Auto) [place] # (Auto) Eos # (Auto) Baso # (Auto) Seg Neutrophils % Seg Neuts % (Manual) Lymphocytes % (Manual) Seg Neutrophils # Seg Neutrophils # Man Lymphocytes # (Manual) D-Dimer ABG pH POC ABG pCO2 POC ABG pO2 ABG pO2 ABG HCO3 ABG O2 Saturation ABG Base Excess ABG Oxyhemoglobin ABG Sodium ABG Chloride ABG Glucose Oxyhemoglobin Carboxyhemoglobin Sodium Potassium Chloride Carbon Dioxide BUN Creatinine Glucose POC Glucose 69 L 218 H 326 H Hemoglobin A1c Magnesium Ferritin AST ALT Alkaline Phosphatase Lactate Dehydrogenase C-Reactive Protein Total Protein Albumin Arterial Blood Glucose Coronavirus (PCR) 06/23/21 06/24/21 06/24/21 22:44 11:41 16:54 WBC MCV MCH MCHC RDW Lymph % (Auto) [place] % (Auto) Eos % (Auto) Lymph # (Auto) [place] # (Auto) Eos # (Auto) Baso # (Auto) Seg Neutrophils % Seg Neuts % (Manual) Lymphocytes % (Manual) Seg Neutrophils # Seg Neutrophils # Man Lymphocytes # (Manual) D-Dimer ABG pH POC ABG pCO2 POC ABG pO2 ABG pO2 ABG HCO3 ABG O2 Saturation ABG Base Excess ABG Oxyhemoglobin ABG Sodium ABG Chloride ABG Glucose Oxyhemoglobin Carboxyhemoglobin Sodium Potassium Chloride Carbon Dioxide BUN Creatinine Glucose POC Glucose 252 H 217 H 357 H Hemoglobin A1c Magnesium Ferritin AST ALT Alkaline Phosphatase Lactate Dehydrogenase C-Reactive Protein Total Protein Albumin Arterial Blood Glucose Coronavirus (PCR) 06/24/21 06/25/21 06/25/21 20:40 11:51 16:47 WBC MCV MCH MCHC RDW Lymph % (Auto) [place] % (Auto) Eos % (Auto) Lymph # (Auto) [place] # (Auto) Eos # (Auto) Baso # (Auto) Seg Neutrophils % Seg Neuts % (Manual) Lymphocytes % (Manual) Seg Neutrophils # Seg Neutrophils # Man Lymphocytes # (Manual) D-Dimer ABG pH POC ABG pCO2 POC ABG pO2 ABG pO2 ABG HCO3 ABG O2 Saturation ABG Base Excess ABG Oxyhemoglobin ABG Sodium ABG Chloride ABG Glucose Oxyhemoglobin Carboxyhemoglobin Sodium Potassium Chloride Carbon Dioxide BUN Creatinine Glucose POC Glucose 239 H 182 H 229 H Hemoglobin A1c Magnesium Ferritin AST ALT Alkaline Phosphatase Lactate Dehydrogenase C-Reactive Protein Total Protein Albumin Arterial Blood Glucose Coronavirus (PCR) 06/25/21 06/26/21 06/26/21 22:27 07:20 12:19 WBC MCV MCH MCHC RDW Lymph % (Auto) [place] % (Auto) Eos % (Auto) Lymph # (Auto) [place] # (Auto) Eos # (Auto) Baso # (Auto) Seg Neutrophils % Seg Neuts % (Manual) Lymphocytes % (Manual) Seg Neutrophils # Seg Neutrophils # Man Lymphocytes # (Manual) D-Dimer ABG pH POC ABG pCO2 POC ABG pO2 ABG pO2 ABG HCO3 ABG O2 Saturation ABG Base Excess ABG Oxyhemoglobin ABG Sodium ABG Chloride ABG Glucose Oxyhemoglobin Carboxyhemoglobin Sodium Potassium 3.2 L D Chloride Carbon Dioxide BUN 20 H Creatinine 0.3 L Glucose POC Glucose 209 H 273 H Hemoglobin A1c Magnesium Ferritin AST ALT 77 H Alkaline Phosphatase Lactate Dehydrogenase C-Reactive Protein Total Protein Albumin 3.3 L Arterial Blood Glucose Coronavirus (PCR) 06/26/21 06/26/21 06/27/21 16:52 20:55 07:14 WBC MCV MCH MCHC RDW Lymph % (Auto) [place] % (Auto) Eos % (Auto) Lymph # (Auto) [place] # (Auto) Eos # (Auto) Baso # (Auto) Seg Neutrophils % Seg Neuts % (Manual) Lymphocytes % (Manual) Seg Neutrophils # Seg Neutrophils # Man Lymphocytes # (Manual) D-Dimer ABG pH POC ABG pCO2 POC ABG pO2 ABG pO2 ABG HCO3 ABG O2 Saturation ABG Base Excess ABG Oxyhemoglobin ABG Sodium ABG Chloride ABG Glucose Oxyhemoglobin Carboxyhemoglobin Sodium Potassium Chloride Carbon Dioxide 31 H BUN 19 H Creatinine 0.2 L Glucose 112 H POC Glucose 326 H 220 H Hemoglobin A1c Magnesium Ferritin AST ALT Alkaline Phosphatase Lactate Dehydrogenase C-Reactive Protein Total Protein Albumin Arterial Blood Glucose Coronavirus (PCR) 06/27/21 06/27/21 06/27/21 07:29 10:54 15:49 WBC MCV MCH MCHC RDW Lymph % (Auto) [place] % (Auto) Eos % (Auto) Lymph # (Auto) [place] # (Auto) Eos # (Auto) Baso # (Auto) Seg Neutrophils % Seg Neuts % (Manual) Lymphocytes % (Manual) Seg Neutrophils # Seg Neutrophils # Man Lymphocytes # (Manual) D-Dimer ABG pH POC ABG pCO2 POC ABG pO2 ABG pO2 ABG HCO3 ABG O2 Saturation ABG Base Excess ABG Oxyhemoglobin ABG Sodium ABG Chloride ABG Glucose Oxyhemoglobin Carboxyhemoglobin Sodium Potassium Chloride Carbon Dioxide BUN Creatinine Glucose POC Glucose 115 H 228 H 240 H Hemoglobin A1c Magnesium Ferritin AST ALT Alkaline Phosphatase Lactate Dehydrogenase C-Reactive Protein Total Protein Albumin Arterial Blood Glucose Coronavirus (PCR) 06/28/21 06/28/21 06/28/21 05:43 05:43 07:13 WBC MCV MCH 33 H MCHC RDW 19.8 H Lymph % (Auto) [place] % (Auto) Eos % (Auto) Lymph # (Auto) [place] # (Auto) Eos # (Auto) Baso # (Auto) Seg Neutrophils % Seg Neuts % (Manual) Lymphocytes % (Manual) Seg Neutrophils # Seg Neutrophils # Man Lymphocytes # (Manual) D-Dimer ABG pH POC ABG pCO2 POC ABG pO2 ABG pO2 ABG HCO3 ABG O2 Saturation ABG Base Excess ABG Oxyhemoglobin ABG Sodium ABG Chloride ABG Glucose Oxyhemoglobin Carboxyhemoglobin Sodium Potassium 3.3 L Chloride Carbon Dioxide BUN 22 H Creatinine 0.2 L Glucose POC Glucose 69 L Hemoglobin A1c Magnesium Ferritin AST ALT 63 H Alkaline Phosphatase Lactate Dehydrogenase C-Reactive Protein Total Protein Albumin 3.3 L Arterial Blood Glucose Coronavirus (PCR) 06/28/21 06/28/21 06/28/21 12:18 15:37 21:01 WBC MCV MCH MCHC RDW Lymph % (Auto) [place] % (Auto) Eos % (Auto) Lymph # (Auto) [place] # (Auto) Eos # (Auto) Baso # (Auto) Seg Neutrophils % Seg Neuts % (Manual) Lymphocytes % (Manual) Seg Neutrophils # Seg Neutrophils # Man Lymphocytes # (Manual) D-Dimer ABG pH POC ABG pCO2 POC ABG pO2 ABG pO2 ABG HCO3 ABG O2 Saturation ABG Base Excess ABG Oxyhemoglobin ABG Sodium ABG Chloride ABG Glucose Oxyhemoglobin Carboxyhemoglobin Sodium Potassium Chloride Carbon Dioxide BUN Creatinine Glucose POC Glucose 154 H 201 H 191 H Hemoglobin A1c Magnesium Ferritin AST ALT Alkaline Phosphatase Lactate Dehydrogenase C-Reactive Protein Total Protein Albumin Arterial Blood Glucose Coronavirus (PCR) 06/29/21 06/29/21 06/29/21 11:55 15:47 21:06 WBC MCV MCH MCHC RDW Lymph % (Auto) [place] % (Auto) Eos % (Auto) Lymph # (Auto) [place] # (Auto) Eos # (Auto) Baso # (Auto) Seg Neutrophils % Seg Neuts % (Manual) Lymphocytes % (Manual) Seg Neutrophils # Seg Neutrophils # Man Lymphocytes # (Manual) D-Dimer ABG pH POC ABG pCO2 POC ABG pO2 ABG pO2 ABG HCO3 ABG O2 Saturation ABG Base Excess ABG Oxyhemoglobin ABG Sodium ABG Chloride ABG Glucose Oxyhemoglobin Carboxyhemoglobin Sodium Potassium Chloride Carbon Dioxide BUN Creatinine Glucose POC Glucose 238 H 249 H 155 H Hemoglobin A1c Magnesium Ferritin AST ALT Alkaline Phosphatase Lactate Dehydrogenase C-Reactive Protein Total Protein Albumin Arterial Blood Glucose Coronavirus (PCR) 06/30/21 06/30/21 06/30/21 04:00 07:50 11:50 WBC MCV MCH MCHC RDW Lymph % (Auto) [place] % (Auto) Eos % (Auto) Lymph # (Auto) [place] # (Auto) Eos # (Auto) Baso # (Auto) Seg Neutrophils % Seg Neuts % (Manual) Lymphocytes % (Manual) Seg Neutrophils # Seg Neutrophils # Man Lymphocytes # (Manual) D-Dimer ABG pH POC ABG pCO2 POC ABG pO2 ABG pO2 ABG HCO3 ABG O2 Saturation ABG Base Excess ABG Oxyhemoglobin ABG Sodium ABG Chloride ABG Glucose Oxyhemoglobin Carboxyhemoglobin Sodium Potassium 3.5 L Chloride Carbon Dioxide BUN 18 H Creatinine 0.3 L Glucose 111 H POC Glucose 117 H 250 H Hemoglobin A1c Magnesium Ferritin AST ALT Alkaline Phosphatase Lactate Dehydrogenase C-Reactive Protein Total Protein Albumin Arterial Blood Glucose Coronavirus (PCR) 06/30/21 06/30/21 07/01/21 16:05 21:02 07:26 WBC MCV MCH MCHC RDW Lymph % (Auto) [place] % (Auto) Eos % (Auto) Lymph # (Auto) [place] # (Auto) Eos # (Auto) Baso # (Auto) Seg Neutrophils % Seg Neuts % (Manual) Lymphocytes % (Manual) Seg Neutrophils # Seg Neutrophils # Man Lymphocytes # (Manual) D-Dimer ABG pH POC ABG pCO2 POC ABG pO2 ABG pO2 ABG HCO3 ABG O2 Saturation ABG Base Excess ABG Oxyhemoglobin ABG Sodium ABG Chloride ABG Glucose Oxyhemoglobin Carboxyhemoglobin Sodium Potassium Chloride Carbon Dioxide BUN Creatinine Glucose POC Glucose 250 H 217 H 111 H Hemoglobin A1c Magnesium Ferritin AST ALT Alkaline Phosphatase Lactate Dehydrogenase C-Reactive Protein Total Protein Albumin Arterial Blood Glucose Coronavirus (PCR) 07/01/21 07/01/21 07/01/21 11:06 15:48 21:31 WBC MCV MCH MCHC RDW Lymph % (Auto) [place] % (Auto) Eos % (Auto) Lymph # (Auto) [place] # (Auto) Eos # (Auto) Baso # (Auto) Seg Neutrophils % Seg Neuts % (Manual) Lymphocytes % (Manual) Seg Neutrophils # Seg Neutrophils # Man Lymphocytes # (Manual) D-Dimer ABG pH POC ABG pCO2 POC ABG pO2 ABG pO2 ABG HCO3 ABG O2 Saturation ABG Base Excess ABG Oxyhemoglobin ABG Sodium ABG Chloride ABG Glucose Oxyhemoglobin Carboxyhemoglobin Sodium Potassium Chloride Carbon Dioxide BUN Creatinine Glucose POC Glucose 229 H 239 H 199 H Hemoglobin A1c Magnesium Ferritin AST ALT Alkaline Phosphatase Lactate Dehydrogenase C-Reactive Protein Total Protein Albumin Arterial Blood Glucose Coronavirus (PCR) 07/02/21 07/02/21 07/02/21 11:50 16:44 21:49 WBC MCV MCH MCHC RDW Lymph % (Auto) [place] % (Auto) Eos % (Auto) Lymph # (Auto) [place] # (Auto) Eos # (Auto) Baso # (Auto) Seg Neutrophils % Seg Neuts % (Manual) Lymphocytes % (Manual) Seg Neutrophils # Seg Neutrophils # Man Lymphocytes # (Manual) D-Dimer ABG pH POC ABG pCO2 POC ABG pO2 ABG pO2 ABG HCO3 ABG O2 Saturation ABG Base Excess ABG Oxyhemoglobin ABG Sodium ABG Chloride ABG Glucose Oxyhemoglobin Carboxyhemoglobin Sodium Potassium Chloride Carbon Dioxide BUN Creatinine Glucose POC Glucose 230 H 203 H 197 H Hemoglobin A1c Magnesium Ferritin AST ALT Alkaline Phosphatase Lactate Dehydrogenase C-Reactive Protein Total Protein Albumin Arterial Blood Glucose Coronavirus (PCR) 07/03/21 07/03/21 07/03/21 05:46 05:46 11:59 WBC MCV MCH MCHC RDW 19.6 H Lymph % (Auto) [place] % (Auto) Eos % (Auto) Lymph # (Auto) [place] # (Auto) Eos # (Auto) Baso # (Auto) Seg Neutrophils % Seg Neuts % (Manual) Lymphocytes % (Manual) Seg Neutrophils # Seg Neutrophils # Man Lymphocytes # (Manual) D-Dimer ABG pH POC ABG pCO2 POC ABG pO2 ABG pO2 ABG HCO3 ABG O2 Saturation ABG Base Excess ABG Oxyhemoglobin ABG Sodium ABG Chloride ABG Glucose Oxyhemoglobin Carboxyhemoglobin Sodium Potassium 3.2 L Chloride Carbon Dioxide BUN Creatinine 0.3 L Glucose POC Glucose 145 H Hemoglobin A1c Magnesium Ferritin AST ALT Alkaline Phosphatase Lactate Dehydrogenase C-Reactive Protein Total Protein Albumin Arterial Blood Glucose Coronavirus (PCR) 07/03/21 07/03/21 07/04/21 16:40 22:00 06:35 WBC MCV MCH MCHC RDW Lymph % (Auto) [place] % (Auto) Eos % (Auto) Lymph # (Auto) [place] # (Auto) Eos # (Auto) Baso # (Auto) Seg Neutrophils % Seg Neuts % (Manual) Lymphocytes % (Manual) Seg Neutrophils # Seg Neutrophils # Man Lymphocytes # (Manual) D-Dimer ABG pH POC ABG pCO2 POC ABG pO2 ABG pO2 ABG HCO3 ABG O2 Saturation ABG Base Excess ABG Oxyhemoglobin ABG Sodium ABG Chloride ABG Glucose Oxyhemoglobin Carboxyhemoglobin Sodium Potassium Chloride Carbon Dioxide BUN Creatinine 0.3 L Glucose 118 H POC Glucose 176 H 127 H Hemoglobin A1c Magnesium Ferritin AST ALT Alkaline Phosphatase Lactate Dehydrogenase C-Reactive Protein Total Protein Albumin Arterial Blood Glucose Coronavirus (PCR) 07/04/21 07/04/21 07/05/21 12:30 16:38 08:37 WBC MCV MCH MCHC RDW Lymph % (Auto) [place] % (Auto) Eos % (Auto) Lymph # (Auto) [place] # (Auto) Eos # (Auto) Baso # (Auto) Seg Neutrophils % Seg Neuts % (Manual) Lymphocytes % (Manual) Seg Neutrophils # Seg Neutrophils # Man Lymphocytes # (Manual) D-Dimer ABG pH POC ABG pCO2 POC ABG pO2 ABG pO2 ABG HCO3 ABG O2 Saturation ABG Base Excess ABG Oxyhemoglobin ABG Sodium ABG Chloride ABG Glucose Oxyhemoglobin Carboxyhemoglobin Sodium Potassium Chloride Carbon Dioxide BUN Creatinine Glucose POC Glucose 162 H 205 H 115 H Hemoglobin A1c Magnesium Ferritin AST ALT Alkaline Phosphatase Lactate Dehydrogenase C-Reactive Protein Total Protein Albumin Arterial Blood Glucose Coronavirus (PCR) 07/05/21 07/05/21 07/05/21 10:57 16:42 21:14 WBC MCV MCH MCHC RDW Lymph % (Auto) [place] % (Auto) Eos % (Auto) Lymph # (Auto) [place] # (Auto) Eos # (Auto) Baso # (Auto) Seg Neutrophils % Seg Neuts % (Manual) Lymphocytes % (Manual) Seg Neutrophils # Seg Neutrophils # Man Lymphocytes # (Manual) D-Dimer ABG pH POC ABG pCO2 POC ABG pO2 ABG pO2 ABG HCO3 ABG O2 Saturation ABG Base Excess ABG Oxyhemoglobin ABG Sodium ABG Chloride ABG Glucose Oxyhemoglobin Carboxyhemoglobin Sodium Potassium Chloride Carbon Dioxide BUN Creatinine Glucose POC Glucose 151 H 184 H 130 H Hemoglobin A1c Magnesium Ferritin AST ALT Alkaline Phosphatase Lactate Dehydrogenase C-Reactive Protein Total Protein Albumin Arterial Blood Glucose Coronavirus (PCR) 07/06/21 07/06/21 07/06/21 07:31 11:49 16:46 WBC MCV MCH MCHC RDW Lymph % (Auto) [place] % (Auto) Eos % (Auto) Lymph # (Auto) [place] # (Auto) Eos # (Auto) Baso # (Auto) Seg Neutrophils % Seg Neuts % (Manual) Lymphocytes % (Manual) Seg Neutrophils # Seg Neutrophils # Man Lymphocytes # (Manual) D-Dimer ABG pH POC ABG pCO2 POC ABG pO2 ABG pO2 ABG HCO3 ABG O2 Saturation ABG Base Excess ABG Oxyhemoglobin ABG Sodium ABG Chloride ABG Glucose Oxyhemoglobin Carboxyhemoglobin Sodium Potassium Chloride Carbon Dioxide BUN Creatinine Glucose POC Glucose 106 H 173 H 205 H Hemoglobin A1c Magnesium Ferritin AST ALT Alkaline Phosphatase Lactate Dehydrogenase C-Reactive Protein Total Protein Albumin Arterial Blood Glucose Coronavirus (PCR) 07/06/21 07/07/21 07/07/21 21:38 06:00 06:00 WBC 16.1 H MCV MCH MCHC RDW 18.8 H Lymph % (Auto) [place] % (Auto) Eos % (Auto) Lymph # (Auto) [place] # (Auto) 1.1 H Eos # (Auto) Baso # (Auto) 0.2 H Seg Neutrophils % 74.9 H Seg Neuts % (Manual) Lymphocytes % (Manual) Seg Neutrophils # 12.1 H Seg Neutrophils # Man Lymphocytes # (Manual) D-Dimer ABG pH POC ABG pCO2 POC ABG pO2 ABG pO2 ABG HCO3 ABG O2 Saturation ABG Base Excess ABG Oxyhemoglobin ABG Sodium ABG Chloride ABG Glucose Oxyhemoglobin Carboxyhemoglobin Sodium Potassium 3.5 L D Chloride Carbon Dioxide BUN 6 L Creatinine < 0.2 L Glucose 106 H POC Glucose 120 H Hemoglobin A1c Magnesium Ferritin AST ALT Alkaline Phosphatase Lactate Dehydrogenase C-Reactive Protein Total Protein Albumin Arterial Blood Glucose Coronavirus (PCR) 07/07/21 07/07/21 07/07/21 07:10 11:53 15:53 WBC MCV MCH MCHC RDW Lymph % (Auto) [place] % (Auto) Eos % (Auto) Lymph # (Auto) [place] # (Auto) Eos # (Auto) Baso # (Auto) Seg Neutrophils % Seg Neuts % (Manual) Lymphocytes % (Manual) Seg Neutrophils # Seg Neutrophils # Man Lymphocytes # (Manual) D-Dimer ABG pH POC ABG pCO2 POC ABG pO2 ABG pO2 ABG HCO3 ABG O2 Saturation ABG Base Excess ABG Oxyhemoglobin ABG Sodium ABG Chloride ABG Glucose Oxyhemoglobin Carboxyhemoglobin Sodium Potassium Chloride Carbon Dioxide BUN Creatinine Glucose POC Glucose 132 H 169 H 242 H Hemoglobin A1c Magnesium Ferritin AST ALT Alkaline Phosphatase Lactate Dehydrogenase C-Reactive Protein Total Protein Albumin Arterial Blood Glucose Coronavirus (PCR) 07/07/21 07/08/21 07/08/21 21:41 08:09 12:20 WBC MCV MCH MCHC RDW Lymph % (Auto) [place] % (Auto) Eos % (Auto) Lymph # (Auto) [place] # (Auto) Eos # (Auto) Baso # (Auto) Seg Neutrophils % Seg Neuts % (Manual) Lymphocytes % (Manual) Seg Neutrophils # Seg Neutrophils # Man Lymphocytes # (Manual) D-Dimer ABG pH POC ABG pCO2 POC ABG pO2 ABG pO2 ABG HCO3 ABG O2 Saturation ABG Base Excess ABG Oxyhemoglobin ABG Sodium ABG Chloride ABG Glucose Oxyhemoglobin Carboxyhemoglobin Sodium Potassium Chloride Carbon Dioxide BUN Creatinine Glucose POC Glucose 128 H 132 H 179 H Hemoglobin A1c Magnesium Ferritin AST ALT Alkaline Phosphatase Lactate Dehydrogenase C-Reactive Protein Total Protein Albumin Arterial Blood Glucose Coronavirus (PCR) 07/08/21 07/08/21 07/08/21 16:37 21:45 22:44 WBC MCV MCH MCHC RDW Lymph % (Auto) [place] % (Auto) Eos % (Auto) Lymph # (Auto) [place] # (Auto) Eos # (Auto) Baso # (Auto) Seg Neutrophils % Seg Neuts % (Manual) Lymphocytes % (Manual) Seg Neutrophils # Seg Neutrophils # Man Lymphocytes # (Manual) D-Dimer ABG pH POC ABG pCO2 POC ABG pO2 ABG pO2 ABG HCO3 ABG O2 Saturation ABG Base Excess ABG Oxyhemoglobin ABG Sodium ABG Chloride ABG Glucose Oxyhemoglobin Carboxyhemoglobin Sodium Potassium Chloride Carbon Dioxide BUN Creatinine Glucose POC Glucose 192 H 51 L 137 H Hemoglobin A1c Magnesium Ferritin AST ALT Alkaline Phosphatase Lactate Dehydrogenase C-Reactive Protein Total Protein Albumin Arterial Blood Glucose Coronavirus (PCR) 07/09/21 07/09/21 07/09/21 04:45 04:45 04:45 WBC MCV MCH MCHC RDW 18.3 H Lymph % (Auto) [place] % (Auto) Eos % (Auto) Lymph # (Auto) [place] # (Auto) Eos # (Auto) Baso # (Auto) Seg Neutrophils % Seg Neuts % (Manual) 82.0 H Lymphocytes % (Manual) 13.0 L Seg Neutrophils # Seg Neutrophils # Man 7.8 H Lymphocytes # (Manual) D-Dimer 638.35 H ABG pH POC ABG pCO2 POC ABG pO2 ABG pO2 ABG HCO3 ABG O2 Saturation ABG Base Excess ABG Oxyhemoglobin ABG Sodium ABG Chloride ABG Glucose Oxyhemoglobin Carboxyhemoglobin Sodium Potassium Chloride 96.9 L Carbon Dioxide 35 H BUN Creatinine 0.2 L Glucose 135 H POC Glucose Hemoglobin A1c Magnesium Ferritin AST ALT Alkaline Phosphatase Lactate Dehydrogenase C-Reactive Protein 4.30 H Total Protein Albumin Arterial Blood Glucose Coronavirus (PCR) 07/09/21 07/09/21 07/09/21 05:19 07:36 11:16 WBC MCV MCH MCHC RDW Lymph % (Auto) [place] % (Auto) Eos % (Auto) Lymph # (Auto) [place] # (Auto) Eos # (Auto) Baso # (Auto) Seg Neutrophils % Seg Neuts % (Manual) Lymphocytes % (Manual) Seg Neutrophils # Seg Neutrophils # Man Lymphocytes # (Manual) D-Dimer ABG pH POC ABG pCO2 POC ABG pO2 ABG pO2 ABG HCO3 ABG O2 Saturation ABG Base Excess ABG Oxyhemoglobin ABG Sodium ABG Chloride ABG Glucose Oxyhemoglobin Carboxyhemoglobin Sodium Potassium Chloride Carbon Dioxide BUN Creatinine Glucose POC Glucose 135 H 148 H 212 H Hemoglobin A1c Magnesium Ferritin AST ALT Alkaline Phosphatase Lactate Dehydrogenase C-Reactive Protein Total Protein Albumin Arterial Blood Glucose Coronavirus (PCR) 07/09/21 07/09/21 07/10/21 15:21 21:12 05:40 WBC MCV MCH MCHC RDW Lymph % (Auto) [place] % (Auto) Eos % (Auto) Lymph # (Auto) [place] # (Auto) Eos # (Auto) Baso # (Auto) Seg Neutrophils % Seg Neuts % (Manual) Lymphocytes % (Manual) Seg Neutrophils # Seg Neutrophils # Man Lymphocytes # (Manual) D-Dimer ABG pH POC ABG pCO2 POC ABG pO2 ABG pO2 ABG HCO3 ABG O2 Saturation ABG Base Excess ABG Oxyhemoglobin ABG Sodium ABG Chloride ABG Glucose Oxyhemoglobin Carboxyhemoglobin Sodium Potassium 3.3 L Chloride 95.1 L Carbon Dioxide 39 H BUN Creatinine 0.2 L Glucose 122 H POC Glucose 128 H 196 H Hemoglobin A1c Magnesium Ferritin AST ALT Alkaline Phosphatase Lactate Dehydrogenase C-Reactive Protein Total Protein Albumin Arterial Blood Glucose Coronavirus (PCR) 07/10/21 07/10/21 07/10/21 07:38 11:15 16:29 WBC MCV MCH MCHC RDW Lymph % (Auto) [place] % (Auto) Eos % (Auto) Lymph # (Auto) [place] # (Auto) Eos # (Auto) Baso # (Auto) Seg Neutrophils % Seg Neuts % (Manual) Lymphocytes % (Manual) Seg Neutrophils # Seg Neutrophils # Man Lymphocytes # (Manual) D-Dimer ABG pH POC ABG pCO2 POC ABG pO2 ABG pO2 ABG HCO3 ABG O2 Saturation ABG Base Excess ABG Oxyhemoglobin ABG Sodium ABG Chloride ABG Glucose Oxyhemoglobin Carboxyhemoglobin Sodium Potassium Chloride Carbon Dioxide BUN Creatinine Glucose POC Glucose 128 H 175 H 174 H Hemoglobin A1c Magnesium Ferritin AST ALT Alkaline Phosphatase Lactate Dehydrogenase C-Reactive Protein Total Protein Albumin Arterial Blood Glucose Coronavirus (PCR) 07/10/21 07/11/21 07/11/21 20:49 05:50 12:08 WBC MCV MCH MCHC RDW Lymph % (Auto) [place] % (Auto) Eos % (Auto) Lymph # (Auto) [place] # (Auto) Eos # (Auto) Baso # (Auto) Seg Neutrophils % Seg Neuts % (Manual) Lymphocytes % (Manual) Seg Neutrophils # Seg Neutrophils # Man Lymphocytes # (Manual) D-Dimer ABG pH POC ABG pCO2 POC ABG pO2 ABG pO2 ABG HCO3 ABG O2 Saturation ABG Base Excess ABG Oxyhemoglobin ABG Sodium ABG Chloride ABG Glucose Oxyhemoglobin Carboxyhemoglobin Sodium Potassium Chloride 97.3 L Carbon Dioxide 34 H BUN Creatinine 0.2 L Glucose 109 H POC Glucose 142 H 220 H Hemoglobin A1c Magnesium Ferritin AST ALT Alkaline Phosphatase Lactate Dehydrogenase C-Reactive Protein Total Protein Albumin Arterial Blood Glucose Coronavirus (PCR) 07/11/21 07/11/21 07/12/21 17:09 21:55 07:36 WBC MCV MCH MCHC RDW Lymph % (Auto) [place] % (Auto) Eos % (Auto) Lymph # (Auto) [place] # (Auto) Eos # (Auto) Baso # (Auto) Seg Neutrophils % Seg Neuts % (Manual) Lymphocytes % (Manual) Seg Neutrophils # Seg Neutrophils # Man Lymphocytes # (Manual) D-Dimer ABG pH POC ABG pCO2 POC ABG pO2 ABG pO2 ABG HCO3 ABG O2 Saturation ABG Base Excess ABG Oxyhemoglobin ABG Sodium ABG Chloride ABG Glucose Oxyhemoglobin Carboxyhemoglobin Sodium Potassium Chloride Carbon Dioxide BUN Creatinine Glucose POC Glucose 219 H 124 H 114 H Hemoglobin A1c Magnesium Ferritin AST ALT Alkaline Phosphatase Lactate Dehydrogenase C-Reactive Protein Total Protein Albumin Arterial Blood Glucose Coronavirus (PCR) 07/12/21 07/12/21 07/12/21 11:08 15:43 22:20 WBC MCV MCH MCHC RDW Lymph % (Auto) [place] % (Auto) Eos % (Auto) Lymph # (Auto) [place] # (Auto) Eos # (Auto) Baso # (Auto) Seg Neutrophils % Seg Neuts % (Manual) Lymphocytes % (Manual) Seg Neutrophils # Seg Neutrophils # Man Lymphocytes # (Manual) D-Dimer ABG pH POC ABG pCO2 POC ABG pO2 ABG pO2 ABG HCO3 ABG O2 Saturation ABG Base Excess ABG Oxyhemoglobin ABG Sodium ABG Chloride ABG Glucose Oxyhemoglobin Carboxyhemoglobin Sodium Potassium Chloride Carbon Dioxide BUN Creatinine Glucose POC Glucose 195 H 276 H 189 H Hemoglobin A1c Magnesium Ferritin AST ALT Alkaline Phosphatase Lactate Dehydrogenase C-Reactive Protein Total Protein Albumin Arterial Blood Glucose Coronavirus (PCR) 07/13/21 07/13/21 07/13/21 08:01 08:08 10:17 WBC MCV MCH MCHC RDW Lymph % (Auto) [place] % (Auto) Eos % (Auto) Lymph # (Auto) [place] # (Auto) Eos # (Auto) Baso # (Auto) Seg Neutrophils % Seg Neuts % (Manual) Lymphocytes % (Manual) Seg Neutrophils # Seg Neutrophils # Man Lymphocytes # (Manual) D-Dimer ABG pH POC ABG pCO2 POC ABG pO2 ABG pO2 ABG HCO3 ABG O2 Saturation ABG Base Excess ABG Oxyhemoglobin ABG Sodium ABG Chloride ABG Glucose Oxyhemoglobin Carboxyhemoglobin Sodium Potassium Chloride 94.4 L Carbon Dioxide 34 H BUN Creatinine 0.3 L Glucose 149 H POC Glucose 132 H 265 H Hemoglobin A1c Magnesium Ferritin AST ALT Alkaline Phosphatase Lactate Dehydrogenase C-Reactive Protein Total Protein Albumin Arterial Blood Glucose Coronavirus (PCR) 07/13/21 07/13/21 07/14/21 17:58 21:41 07:34 WBC MCV MCH MCHC RDW Lymph % (Auto) [place] % (Auto) Eos % (Auto) Lymph # (Auto) [place] # (Auto) Eos # (Auto) Baso # (Auto) Seg Neutrophils % Seg Neuts % (Manual) Lymphocytes % (Manual) Seg Neutrophils # Seg Neutrophils # Man Lymphocytes # (Manual) D-Dimer ABG pH POC ABG pCO2 POC ABG pO2 ABG pO2 ABG HCO3 ABG O2 Saturation ABG Base Excess ABG Oxyhemoglobin ABG Sodium ABG Chloride ABG Glucose Oxyhemoglobin Carboxyhemoglobin Sodium Potassium Chloride Carbon Dioxide BUN Creatinine Glucose POC Glucose 217 H 223 H 116 H Hemoglobin A1c Magnesium Ferritin AST ALT Alkaline Phosphatase Lactate Dehydrogenase C-Reactive Protein Total Protein Albumin Arterial Blood Glucose Coronavirus (PCR) 07/14/21 07/14/21 07/14/21 10:50 17:33 20:51 WBC MCV MCH MCHC RDW Lymph % (Auto) [place] % (Auto) Eos % (Auto) Lymph # (Auto) [place] # (Auto) Eos # (Auto) Baso # (Auto) Seg Neutrophils % Seg Neuts % (Manual) Lymphocytes % (Manual) Seg Neutrophils # Seg Neutrophils # Man Lymphocytes # (Manual) D-Dimer ABG pH POC ABG pCO2 POC ABG pO2 ABG pO2 ABG HCO3 ABG O2 Saturation ABG Base Excess ABG Oxyhemoglobin ABG Sodium ABG Chloride ABG Glucose Oxyhemoglobin Carboxyhemoglobin Sodium Potassium Chloride Carbon Dioxide BUN Creatinine Glucose POC Glucose 191 H 173 H 132 H Hemoglobin A1c Magnesium Ferritin AST ALT Alkaline Phosphatase Lactate Dehydrogenase C-Reactive Protein Total Protein Albumin Arterial Blood Glucose Coronavirus (PCR) 07/15/21 07/15/21 07/15/21 04:00 07:59 12:31 WBC MCV MCH MCHC RDW Lymph % (Auto) [place] % (Auto) Eos % (Auto) Lymph # (Auto) [place] # (Auto) Eos # (Auto) Baso # (Auto) Seg Neutrophils % Seg Neuts % (Manual) Lymphocytes % (Manual) Seg Neutrophils # Seg Neutrophils # Man Lymphocytes # (Manual) D-Dimer ABG pH POC ABG pCO2 POC ABG pO2 ABG pO2 ABG HCO3 ABG O2 Saturation ABG Base Excess ABG Oxyhemoglobin ABG Sodium ABG Chloride ABG Glucose Oxyhemoglobin Carboxyhemoglobin Sodium Potassium Chloride 96.0 L Carbon Dioxide 32 H BUN Creatinine 0.3 L Glucose 208 H POC Glucose 117 H 195 H Hemoglobin A1c Magnesium Ferritin AST ALT Alkaline Phosphatase Lactate Dehydrogenase C-Reactive Protein Total Protein Albumin Arterial Blood Glucose Coronavirus (PCR) 07/15/21 07/15/21 07/16/21 18:00 20:57 04:40 WBC MCV MCH MCHC RDW 17.1 H Lymph % (Auto) [place] % (Auto) Eos % (Auto) Lymph # (Auto) [place] # (Auto) Eos # (Auto) Baso # (Auto) Seg Neutrophils % Seg Neuts % (Manual) Lymphocytes % (Manual) Seg Neutrophils # Seg Neutrophils # Man Lymphocytes # (Manual) D-Dimer ABG pH POC ABG pCO2 POC ABG pO2 ABG pO2 ABG HCO3 ABG O2 Saturation ABG Base Excess ABG Oxyhemoglobin ABG Sodium ABG Chloride ABG Glucose Oxyhemoglobin Carboxyhemoglobin Sodium Potassium Chloride Carbon Dioxide BUN Creatinine Glucose POC Glucose 217 H 111 H Hemoglobin A1c Magnesium Ferritin AST ALT Alkaline Phosphatase Lactate Dehydrogenase C-Reactive Protein Total Protein Albumin Arterial Blood Glucose Coronavirus (PCR) 07/16/21 07/16/21 07/16/21 04:40 07:08 11:11 WBC MCV MCH MCHC RDW Lymph % (Auto) [place] % (Auto) Eos % (Auto) Lymph # (Auto) [place] # (Auto) Eos # (Auto) Baso # (Auto) Seg Neutrophils % Seg Neuts % (Manual) Lymphocytes % (Manual) Seg Neutrophils # Seg Neutrophils # Man Lymphocytes # (Manual) D-Dimer ABG pH POC ABG pCO2 POC ABG pO2 ABG pO2 ABG HCO3 ABG O2 Saturation ABG Base Excess ABG Oxyhemoglobin ABG Sodium ABG Chloride ABG Glucose Oxyhemoglobin Carboxyhemoglobin Sodium Potassium 3.4 L Chloride 94.6 L Carbon Dioxide 36 H BUN Creatinine < 0.2 L Glucose 101 H POC Glucose 118 H 184 H Hemoglobin A1c Magnesium Ferritin AST ALT Alkaline Phosphatase Lactate Dehydrogenase C-Reactive Protein Total Protein Albumin Arterial Blood Glucose Coronavirus (PCR) 07/16/21 07/16/21 07/17/21 17:29 22:01 08:10 WBC MCV MCH MCHC RDW Lymph % (Auto) [place] % (Auto) Eos % (Auto) Lymph # (Auto) [place] # (Auto) Eos # (Auto) Baso # (Auto) Seg Neutrophils % Seg Neuts % (Manual) Lymphocytes % (Manual) Seg Neutrophils # Seg Neutrophils # Man Lymphocytes # (Manual) D-Dimer ABG pH POC ABG pCO2 POC ABG pO2 ABG pO2 ABG HCO3 ABG O2 Saturation ABG Base Excess ABG Oxyhemoglobin ABG Sodium ABG Chloride ABG Glucose Oxyhemoglobin Carboxyhemoglobin Sodium Potassium Chloride Carbon Dioxide BUN Creatinine Glucose POC Glucose 200 H 147 H 118 H Hemoglobin A1c Magnesium Ferritin AST ALT Alkaline Phosphatase Lactate Dehydrogenase C-Reactive Protein Total Protein Albumin Arterial Blood Glucose Coronavirus (PCR) 07/17/21 07/17/21 07/17/21 11:38 16:24 21:13 WBC MCV MCH MCHC RDW Lymph % (Auto) [place] % (Auto) Eos % (Auto) Lymph # (Auto) [place] # (Auto) Eos # (Auto) Baso # (Auto) Seg Neutrophils % Seg Neuts % (Manual) Lymphocytes % (Manual) Seg Neutrophils # Seg Neutrophils # Man Lymphocytes # (Manual) D-Dimer ABG pH POC ABG pCO2 POC ABG pO2 ABG pO2 ABG HCO3 ABG O2 Saturation ABG Base Excess ABG Oxyhemoglobin ABG Sodium ABG Chloride ABG Glucose Oxyhemoglobin Carboxyhemoglobin Sodium Potassium Chloride Carbon Dioxide BUN Creatinine Glucose POC Glucose 151 H 268 H 115 H Hemoglobin A1c Magnesium Ferritin AST ALT Alkaline Phosphatase Lactate Dehydrogenase C-Reactive Protein Total Protein Albumin Arterial Blood Glucose Coronavirus (PCR) 07/18/21 07/18/21 07/18/21 07:58 12:29 20:24 WBC MCV MCH MCHC RDW Lymph % (Auto) [place] % (Auto) Eos % (Auto) Lymph # (Auto) [place] # (Auto) Eos # (Auto) Baso # (Auto) Seg Neutrophils % Seg Neuts % (Manual) Lymphocytes % (Manual) Seg Neutrophils # Seg Neutrophils # Man Lymphocytes # (Manual) D-Dimer ABG pH POC ABG pCO2 POC ABG pO2 ABG pO2 ABG HCO3 ABG O2 Saturation ABG Base Excess ABG Oxyhemoglobin ABG Sodium ABG Chloride ABG Glucose Oxyhemoglobin Carboxyhemoglobin Sodium Potassium Chloride Carbon Dioxide BUN Creatinine Glucose POC Glucose 135 H 139 H 130 H Hemoglobin A1c Magnesium Ferritin AST ALT Alkaline Phosphatase Lactate Dehydrogenase C-Reactive Protein Total Protein Albumin Arterial Blood Glucose Coronavirus (PCR) 07/19/21 07/19/21 07/19/21 06:55 06:55 07:54 WBC 14.5 H MCV MCH MCHC RDW 17.3 H Lymph % (Auto) 9.6 L [place] % (Auto) Eos % (Auto) Lymph # (Auto) [place] # (Auto) Eos # (Auto) 0.6 H Baso # (Auto) Seg Neutrophils % 80.3 H Seg Neuts % (Manual) Lymphocytes % (Manual) Seg Neutrophils # 11.7 H Seg Neutrophils # Man Lymphocytes # (Manual) D-Dimer ABG pH POC ABG pCO2 67.9 H POC ABG pO2 131.0 H ABG pO2 ABG HCO3 ABG O2 Saturation ABG Base Excess ABG Oxyhemoglobin ABG Sodium ABG Chloride 97.0 L ABG Glucose 133 H Oxyhemoglobin Carboxyhemoglobin Sodium Potassium Chloride 95.3 L Carbon Dioxide 35 H BUN Creatinine < 0.2 L Glucose 138 H POC Glucose Hemoglobin A1c Magnesium Ferritin AST ALT Alkaline Phosphatase Lactate Dehydrogenase C-Reactive Protein Total Protein Albumin Arterial Blood Glucose 133 H Coronavirus (PCR) 07/19/21 07/19/21 07/19/21 08:10 11:43 17:04 WBC MCV MCH MCHC RDW Lymph % (Auto) [place] % (Auto) Eos % (Auto) Lymph # (Auto) [place] # (Auto) Eos # (Auto) Baso # (Auto) Seg Neutrophils % Seg Neuts % (Manual) Lymphocytes % (Manual) Seg Neutrophils # Seg Neutrophils # Man Lymphocytes # (Manual) D-Dimer ABG pH POC ABG pCO2 POC ABG pO2 ABG pO2 ABG HCO3 ABG O2 Saturation ABG Base Excess ABG Oxyhemoglobin ABG Sodium ABG Chloride ABG Glucose Oxyhemoglobin Carboxyhemoglobin Sodium Potassium Chloride Carbon Dioxide BUN Creatinine Glucose POC Glucose 129 H 126 H 108 H Hemoglobin A1c Magnesium Ferritin AST ALT Alkaline Phosphatase Lactate Dehydrogenase C-Reactive Protein Total Protein Albumin Arterial Blood Glucose Coronavirus (PCR) 07/19/21 07/20/21 07/20/21 21:10 04:00 04:00 WBC MCV MCH MCHC RDW 17.0 H Lymph % (Auto) [place] % (Auto) 8.9 H Eos % (Auto) 6.3 H Lymph # (Auto) [place] # (Auto) 0.9 H Eos # (Auto) 0.6 H Baso # (Auto) Seg Neutrophils % 70.2 H Seg Neuts % (Manual) Lymphocytes % (Manual) Seg Neutrophils # Seg Neutrophils # Man Lymphocytes # (Manual) D-Dimer ABG pH POC ABG pCO2 POC ABG pO2 ABG pO2 ABG HCO3 ABG O2 Saturation ABG Base Excess ABG Oxyhemoglobin ABG Sodium ABG Chloride ABG Glucose Oxyhemoglobin Carboxyhemoglobin Sodium Potassium Chloride 96.7 L Carbon Dioxide 36 H BUN Creatinine 0.2 L Glucose 102 H POC Glucose 109 H Hemoglobin A1c Magnesium Ferritin AST ALT Alkaline Phosphatase Lactate Dehydrogenase C-Reactive Protein Total Protein Albumin 3.2 L Arterial Blood Glucose Coronavirus (PCR) 07/20/21 07/20/21 07/20/21 11:15 15:34 17:01 WBC MCV MCH MCHC RDW Lymph % (Auto) [place] % (Auto) Eos % (Auto) Lymph # (Auto) [place] # (Auto) Eos # (Auto) Baso # (Auto) Seg Neutrophils % Seg Neuts % (Manual) Lymphocytes % (Manual) Seg Neutrophils # Seg Neutrophils # Man Lymphocytes # (Manual) D-Dimer ABG pH POC ABG pCO2 POC ABG pO2 ABG pO2 ABG HCO3 ABG O2 Saturation ABG Base Excess ABG Oxyhemoglobin ABG Sodium ABG Chloride ABG Glucose Oxyhemoglobin Carboxyhemoglobin Sodium Potassium Chloride Carbon Dioxide BUN Creatinine Glucose POC Glucose 109 H 152 H 125 H Hemoglobin A1c Magnesium Ferritin AST ALT Alkaline Phosphatase Lactate Dehydrogenase C-Reactive Protein Total Protein Albumin Arterial Blood Glucose Coronavirus (PCR) 07/20/21 07/21/21 07/21/21 21:00 04:48 04:48 WBC 12.8 H MCV MCH MCHC RDW 16.8 H Lymph % (Auto) 9.3 L [place] % (Auto) Eos % (Auto) Lymph # (Auto) [place] # (Auto) 0.9 H Eos # (Auto) Baso # (Auto) Seg Neutrophils % 81.1 H Seg Neuts % (Manual) Lymphocytes % (Manual) Seg Neutrophils # 10.4 H Seg Neutrophils # Man Lymphocytes # (Manual) D-Dimer ABG pH POC ABG pCO2 POC ABG pO2 ABG pO2 ABG HCO3 ABG O2 Saturation ABG Base Excess ABG Oxyhemoglobin ABG Sodium ABG Chloride ABG Glucose Oxyhemoglobin Carboxyhemoglobin Sodium Potassium Chloride 95.4 L Carbon Dioxide 33 H BUN 6 L Creatinine < 0.2 L Glucose 155 H POC Glucose 211 H Hemoglobin A1c Magnesium 1.60 L Ferritin AST ALT Alkaline Phosphatase Lactate Dehydrogenase C-Reactive Protein Total Protein Albumin Arterial Blood Glucose Coronavirus (PCR) 07/21/21 07/21/21 07/21/21 07:52 11:05 17:01 WBC MCV MCH MCHC RDW Lymph % (Auto) [place] % (Auto) Eos % (Auto) Lymph # (Auto) [place] # (Auto) Eos # (Auto) Baso # (Auto) Seg Neutrophils % Seg Neuts % (Manual) Lymphocytes % (Manual) Seg Neutrophils # Seg Neutrophils # Man Lymphocytes # (Manual) D-Dimer ABG pH POC ABG pCO2 POC ABG pO2 ABG pO2 ABG HCO3 ABG O2 Saturation ABG Base Excess ABG Oxyhemoglobin ABG Sodium ABG Chloride ABG Glucose Oxyhemoglobin Carboxyhemoglobin Sodium Potassium Chloride Carbon Dioxide BUN Creatinine Glucose POC Glucose 116 H 207 H 133 H Hemoglobin A1c Magnesium Ferritin AST ALT Alkaline Phosphatase Lactate Dehydrogenase C-Reactive Protein Total Protein Albumin Arterial Blood Glucose Coronavirus (PCR) 07/21/21 07/22/21 07/22/21 21:17 07:55 07:55 WBC MCV MCH MCHC RDW 16.5 H Lymph % (Auto) [place] % (Auto) 8.6 H Eos % (Auto) Lymph # (Auto) [place] # (Auto) Eos # (Auto) Baso # (Auto) Seg Neutrophils % 72.3 H Seg Neuts % (Manual) Lymphocytes % (Manual) Seg Neutrophils # Seg Neutrophils # Man Lymphocytes # (Manual) D-Dimer ABG pH POC ABG pCO2 POC ABG pO2 ABG pO2 ABG HCO3 ABG O2 Saturation ABG Base Excess ABG Oxyhemoglobin ABG Sodium ABG Chloride ABG Glucose Oxyhemoglobin Carboxyhemoglobin Sodium Potassium Chloride 94.6 L Carbon Dioxide 42 H* D BUN 5 L Creatinine < 0.2 L Glucose POC Glucose 152 H Hemoglobin A1c Magnesium Ferritin AST ALT Alkaline Phosphatase Lactate Dehydrogenase C-Reactive Protein Total Protein Albumin Arterial Blood Glucose Coronavirus (PCR) 07/22/21 07/22/21 07/22/21 11:25 12:05 15:40 WBC MCV MCH MCHC RDW Lymph % (Auto) [place] % (Auto) Eos % (Auto) Lymph # (Auto) [place] # (Auto) Eos # (Auto) Baso # (Auto) Seg Neutrophils % Seg Neuts % (Manual) Lymphocytes % (Manual) Seg Neutrophils # Seg Neutrophils # Man Lymphocytes # (Manual) D-Dimer ABG pH 7.338 L POC ABG pCO2 POC ABG pO2 ABG pO2 66.1 L ABG HCO3 45.0 H ABG O2 Saturation 94.2 L ABG Base Excess 15.2 H ABG Oxyhemoglobin ABG Sodium ABG Chloride ABG Glucose Oxyhemoglobin 91.9 L Carboxyhemoglobin Sodium Potassium Chloride Carbon Dioxide BUN Creatinine Glucose POC Glucose 146 H 219 H Hemoglobin A1c Magnesium Ferritin AST ALT Alkaline Phosphatase Lactate Dehydrogenase C-Reactive Protein Total Protein Albumin Arterial Blood Glucose Coronavirus (PCR) 07/22/21 07/23/21 07/23/21 21:26 04:35 04:35 WBC MCV 98 H MCH MCHC RDW 16.2 H Lymph % (Auto) 7.9 L [place] % (Auto) Eos % (Auto) Lymph # (Auto) 0.9 L [place] # (Auto) Eos # (Auto) Baso # (Auto) Seg Neutrophils % 85.3 H Seg Neuts % (Manual) Lymphocytes % (Manual) Seg Neutrophils # 9.2 H Seg Neutrophils # Man Lymphocytes # (Manual) D-Dimer ABG pH POC ABG pCO2 POC ABG pO2 ABG pO2 ABG HCO3 ABG O2 Saturation ABG Base Excess ABG Oxyhemoglobin ABG Sodium ABG Chloride ABG Glucose Oxyhemoglobin Carboxyhemoglobin Sodium Potassium Chloride 93.9 L Carbon Dioxide 44 H* BUN Creatinine < 0.2 L Glucose 149 H POC Glucose 131 H Hemoglobin A1c Magnesium Ferritin AST ALT Alkaline Phosphatase Lactate Dehydrogenase C-Reactive Protein Total Protein Albumin Arterial Blood Glucose Coronavirus (PCR) 07/23/21 07/23/21 07/23/21 07:20 11:34 16:11 WBC MCV MCH MCHC RDW Lymph % (Auto) [place] % (Auto) Eos % (Auto) Lymph # (Auto) [place] # (Auto) Eos # (Auto) Baso # (Auto) Seg Neutrophils % Seg Neuts % (Manual) Lymphocytes % (Manual) Seg Neutrophils # Seg Neutrophils # Man Lymphocytes # (Manual) D-Dimer ABG pH POC ABG pCO2 POC ABG pO2 ABG pO2 ABG HCO3 ABG O2 Saturation ABG Base Excess ABG Oxyhemoglobin ABG Sodium ABG Chloride ABG Glucose Oxyhemoglobin Carboxyhemoglobin Sodium Potassium Chloride Carbon Dioxide BUN Creatinine Glucose POC Glucose 116 H 172 H 110 H Hemoglobin A1c Magnesium Ferritin AST ALT Alkaline Phosphatase Lactate Dehydrogenase C-Reactive Protein Total Protein Albumin Arterial Blood Glucose Coronavirus (PCR) 07/23/21 07/23/21 07/24/21 18:11 21:33 04:10 WBC MCV MCH MCHC RDW Lymph % (Auto) [place] % (Auto) Eos % (Auto) Lymph # (Auto) [place] # (Auto) Eos # (Auto) Baso # (Auto) Seg Neutrophils % Seg Neuts % (Manual) Lymphocytes % (Manual) Seg Neutrophils # Seg Neutrophils # Man Lymphocytes # (Manual) D-Dimer ABG pH POC ABG pCO2 78.3 H POC ABG pO2 80.7 L ABG pO2 ABG HCO3 ABG O2 Saturation ABG Base Excess ABG Oxyhemoglobin ABG Sodium 134.9 L ABG Chloride 89.0 L ABG Glucose 200 H Oxyhemoglobin Carboxyhemoglobin Sodium Potassium 3.5 L D Chloride 92.4 L Carbon Dioxide 42 H* BUN Creatinine < 0.2 L Glucose 123 H POC Glucose 108 H Hemoglobin A1c Magnesium Ferritin AST ALT Alkaline Phosphatase Lactate Dehydrogenase C-Reactive Protein Total Protein Albumin Arterial Blood Glucose 200 H Coronavirus (PCR) 07/24/21 07/24/21 07/24/21 11:01 16:56 22:06 WBC MCV MCH MCHC RDW Lymph % (Auto) [place] % (Auto) Eos % (Auto) Lymph # (Auto) [place] # (Auto) Eos # (Auto) Baso # (Auto) Seg Neutrophils % Seg Neuts % (Manual) Lymphocytes % (Manual) Seg Neutrophils # Seg Neutrophils # Man Lymphocytes # (Manual) D-Dimer ABG pH POC ABG pCO2 POC ABG pO2 ABG pO2 ABG HCO3 ABG O2 Saturation ABG Base Excess ABG Oxyhemoglobin ABG Sodium ABG Chloride ABG Glucose Oxyhemoglobin Carboxyhemoglobin Sodium Potassium Chloride Carbon Dioxide BUN Creatinine Glucose POC Glucose 171 H 111 H 136 H Hemoglobin A1c Magnesium Ferritin AST ALT Alkaline Phosphatase Lactate Dehydrogenase C-Reactive Protein Total Protein Albumin Arterial Blood Glucose Coronavirus (PCR) 07/25/21 07/25/21 07/25/21 07:40 10:59 11:58 WBC MCV MCH MCHC RDW Lymph % (Auto) [place] % (Auto) Eos % (Auto) Lymph # (Auto) [place] # (Auto) Eos # (Auto) Baso # (Auto) Seg Neutrophils % Seg Neuts % (Manual) Lymphocytes % (Manual) Seg Neutrophils # Seg Neutrophils # Man Lymphocytes # (Manual) D-Dimer ABG pH POC ABG pCO2 POC ABG pO2 ABG pO2 ABG HCO3 ABG O2 Saturation ABG Base Excess ABG Oxyhemoglobin ABG Sodium ABG Chloride ABG Glucose Oxyhemoglobin Carboxyhemoglobin Sodium Potassium Chloride 88.6 L Carbon Dioxide 43 H* BUN Creatinine 0.2 L Glucose 180 H POC Glucose 120 H 153 H Hemoglobin A1c Magnesium Ferritin AST ALT Alkaline Phosphatase Lactate Dehydrogenase C-Reactive Protein Total Protein Albumin Arterial Blood Glucose Coronavirus (PCR) 07/25/21 07/25/21 07/26/21 16:03 20:18 09:56 WBC MCV MCH MCHC RDW Lymph % (Auto) [place] % (Auto) Eos % (Auto) Lymph # (Auto) [place] # (Auto) Eos # (Auto) Baso # (Auto) Seg Neutrophils % Seg Neuts % (Manual) Lymphocytes % (Manual) Seg Neutrophils # Seg Neutrophils # Man Lymphocytes # (Manual) D-Dimer ABG pH POC ABG pCO2 POC ABG pO2 ABG pO2 ABG HCO3 ABG O2 Saturation ABG Base Excess ABG Oxyhemoglobin ABG Sodium ABG Chloride ABG Glucose Oxyhemoglobin Carboxyhemoglobin Sodium Potassium Chloride 91.3 L Carbon Dioxide 45 H* BUN Creatinine < 0.2 L Glucose 128 H POC Glucose 143 H 133 H Hemoglobin A1c Magnesium Ferritin AST ALT Alkaline Phosphatase Lactate Dehydrogenase C-Reactive Protein Total Protein Albumin 3.2 L Arterial Blood Glucose Coronavirus (PCR) 07/26/21 07/26/21 07/27/21 17:56 21:24 07:10 WBC MCV MCH MCHC RDW Lymph % (Auto) [place] % (Auto) Eos % (Auto) Lymph # (Auto) [place] # (Auto) Eos # (Auto) Baso # (Auto) Seg Neutrophils % Seg Neuts % (Manual) Lymphocytes % (Manual) Seg Neutrophils # Seg Neutrophils # Man Lymphocytes # (Manual) D-Dimer ABG pH POC ABG pCO2 POC ABG pO2 ABG pO2 ABG HCO3 ABG O2 Saturation ABG Base Excess ABG Oxyhemoglobin ABG Sodium ABG Chloride ABG Glucose Oxyhemoglobin Carboxyhemoglobin Sodium Potassium Chloride Carbon Dioxide BUN Creatinine Glucose POC Glucose 170 H 122 H 119 H Hemoglobin A1c Magnesium Ferritin AST ALT Alkaline Phosphatase Lactate Dehydrogenase C-Reactive Protein Total Protein Albumin Arterial Blood Glucose Coronavirus (PCR) 07/27/21 07/27/21 07/28/21 11:44 21:31 07:30 WBC MCV MCH MCHC RDW Lymph % (Auto) [place] % (Auto) Eos % (Auto) Lymph # (Auto) [place] # (Auto) Eos # (Auto) Baso # (Auto) Seg Neutrophils % Seg Neuts % (Manual) Lymphocytes % (Manual) Seg Neutrophils # Seg Neutrophils # Man Lymphocytes # (Manual) D-Dimer ABG pH POC ABG pCO2 POC ABG pO2 ABG pO2 ABG HCO3 ABG O2 Saturation ABG Base Excess ABG Oxyhemoglobin ABG Sodium ABG Chloride ABG Glucose Oxyhemoglobin Carboxyhemoglobin Sodium Potassium 3.4 L D Chloride 91.4 L Carbon Dioxide 39 H BUN Creatinine < 0.2 L Glucose 140 H POC Glucose 176 H 162 H Hemoglobin A1c Magnesium Ferritin AST ALT Alkaline Phosphatase Lactate Dehydrogenase C-Reactive Protein Total Protein Albumin Arterial Blood Glucose Coronavirus (PCR) 07/28/21 07/28/21 07/28/21 08:43 12:25 16:40 WBC MCV MCH MCHC RDW Lymph % (Auto) [place] % (Auto) Eos % (Auto) Lymph # (Auto) [place] # (Auto) Eos # (Auto) Baso # (Auto) Seg Neutrophils % Seg Neuts % (Manual) Lymphocytes % (Manual) Seg Neutrophils # Seg Neutrophils # Man Lymphocytes # (Manual) D-Dimer ABG pH POC ABG pCO2 POC ABG pO2 ABG pO2 ABG HCO3 ABG O2 Saturation ABG Base Excess ABG Oxyhemoglobin ABG Sodium ABG Chloride ABG Glucose Oxyhemoglobin Carboxyhemoglobin Sodium Potassium Chloride Carbon Dioxide BUN Creatinine Glucose POC Glucose 122 H 162 H 234 H Hemoglobin A1c Magnesium Ferritin AST ALT Alkaline Phosphatase Lactate Dehydrogenase C-Reactive Protein Total Protein Albumin Arterial Blood Glucose Coronavirus (PCR) 07/28/21 07/29/21 07/29/21 21:27 04:40 09:51 WBC MCV MCH MCHC RDW Lymph % (Auto) [place] % (Auto) Eos % (Auto) Lymph # (Auto) [place] # (Auto) Eos # (Auto) Baso # (Auto) Seg Neutrophils % Seg Neuts % (Manual) Lymphocytes % (Manual) Seg Neutrophils # Seg Neutrophils # Man Lymphocytes # (Manual) D-Dimer ABG pH POC ABG pCO2 POC ABG pO2 ABG pO2 ABG HCO3 ABG O2 Saturation ABG Base Excess ABG Oxyhemoglobin ABG Sodium ABG Chloride ABG Glucose Oxyhemoglobin Carboxyhemoglobin Sodium Potassium 3.4 L Chloride 92.3 L Carbon Dioxide 40 H BUN Creatinine < 0.2 L Glucose 125 H POC Glucose 155 H 112 H Hemoglobin A1c Magnesium Ferritin AST ALT Alkaline Phosphatase Lactate Dehydrogenase C-Reactive Protein Total Protein Albumin Arterial Blood Glucose Coronavirus (PCR) 07/29/21 07/29/21 07/29/21 12:03 16:39 21:28 WBC MCV MCH MCHC RDW Lymph % (Auto) [place] % (Auto) Eos % (Auto) Lymph # (Auto) [place] # (Auto) Eos # (Auto) Baso # (Auto) Seg Neutrophils % Seg Neuts % (Manual) Lymphocytes % (Manual) Seg Neutrophils # Seg Neutrophils # Man Lymphocytes # (Manual) D-Dimer ABG pH POC ABG pCO2 POC ABG pO2 ABG pO2 ABG HCO3 ABG O2 Saturation ABG Base Excess ABG Oxyhemoglobin ABG Sodium ABG Chloride ABG Glucose Oxyhemoglobin Carboxyhemoglobin Sodium Potassium Chloride Carbon Dioxide BUN Creatinine Glucose POC Glucose 188 H 141 H 130 H Hemoglobin A1c Magnesium Ferritin AST ALT Alkaline Phosphatase Lactate Dehydrogenase C-Reactive Protein Total Protein Albumin Arterial Blood Glucose Coronavirus (PCR) 07/30/21 07/30/21 07/30/21 08:37 11:56 22:25 WBC MCV MCH MCHC RDW Lymph % (Auto) [place] % (Auto) Eos % (Auto) Lymph # (Auto) [place] # (Auto) Eos # (Auto) Baso # (Auto) Seg Neutrophils % Seg Neuts % (Manual) Lymphocytes % (Manual) Seg Neutrophils # Seg Neutrophils # Man Lymphocytes # (Manual) D-Dimer ABG pH POC ABG pCO2 POC ABG pO2 ABG pO2 ABG HCO3 ABG O2 Saturation ABG Base Excess ABG Oxyhemoglobin ABG Sodium ABG Chloride ABG Glucose Oxyhemoglobin Carboxyhemoglobin Sodium Potassium Chloride Carbon Dioxide BUN Creatinine Glucose POC Glucose 133 H 156 H 118 H Hemoglobin A1c Magnesium Ferritin AST ALT Alkaline Phosphatase Lactate Dehydrogenase C-Reactive Protein Total Protein Albumin Arterial Blood Glucose Coronavirus (PCR) 07/31/21 07/31/21 07/31/21 06:43 11:55 16:39 WBC MCV MCH MCHC RDW Lymph % (Auto) [place] % (Auto) Eos % (Auto) Lymph # (Auto) [place] # (Auto) Eos # (Auto) Baso # (Auto) Seg Neutrophils % Seg Neuts % (Manual) Lymphocytes % (Manual) Seg Neutrophils # Seg Neutrophils # Man Lymphocytes # (Manual) D-Dimer ABG pH POC ABG pCO2 POC ABG pO2 ABG pO2 ABG HCO3 ABG O2 Saturation ABG Base Excess ABG Oxyhemoglobin ABG Sodium ABG Chloride ABG Glucose Oxyhemoglobin Carboxyhemoglobin Sodium Potassium Chloride Carbon Dioxide BUN Creatinine Glucose POC Glucose 115 H 114 H 185 H Hemoglobin A1c Magnesium Ferritin AST ALT Alkaline Phosphatase Lactate Dehydrogenase C-Reactive Protein Total Protein Albumin Arterial Blood Glucose Coronavirus (PCR) 07/31/21 08/01/21 08/01/21 23:22 11:35 15:34 WBC MCV MCH MCHC RDW Lymph % (Auto) [place] % (Auto) Eos % (Auto) Lymph # (Auto) [place] # (Auto) Eos # (Auto) Baso # (Auto) Seg Neutrophils % Seg Neuts % (Manual) Lymphocytes % (Manual) Seg Neutrophils # Seg Neutrophils # Man Lymphocytes # (Manual) D-Dimer ABG pH POC ABG pCO2 POC ABG pO2 ABG pO2 ABG HCO3 ABG O2 Saturation ABG Base Excess ABG Oxyhemoglobin ABG Sodium ABG Chloride ABG Glucose Oxyhemoglobin Carboxyhemoglobin Sodium Potassium Chloride Carbon Dioxide BUN Creatinine Glucose POC Glucose 213 H 122 H 142 H Hemoglobin A1c Magnesium Ferritin AST ALT Alkaline Phosphatase Lactate Dehydrogenase C-Reactive Protein Total Protein Albumin Arterial Blood Glucose Coronavirus (PCR) 08/01/21 08/02/21 08/02/21 22:15 07:41 11:58 WBC MCV MCH MCHC RDW Lymph % (Auto) [place] % (Auto) Eos % (Auto) Lymph # (Auto) [place] # (Auto) Eos # (Auto) Baso # (Auto) Seg Neutrophils % Seg Neuts % (Manual) Lymphocytes % (Manual) Seg Neutrophils # Seg Neutrophils # Man Lymphocytes # (Manual) D-Dimer ABG pH POC ABG pCO2 POC ABG pO2 ABG pO2 ABG HCO3 ABG O2 Saturation ABG Base Excess ABG Oxyhemoglobin ABG Sodium ABG Chloride ABG Glucose Oxyhemoglobin Carboxyhemoglobin Sodium Potassium Chloride Carbon Dioxide BUN Creatinine Glucose POC Glucose 121 H 109 H 136 H Hemoglobin A1c Magnesium Ferritin AST ALT Alkaline Phosphatase Lactate Dehydrogenase C-Reactive Protein Total Protein Albumin Arterial Blood Glucose Coronavirus (PCR) 08/02/21 08/03/21 08/03/21 21:19 07:47 11:18 WBC MCV MCH MCHC RDW Lymph % (Auto) [place] % (Auto) Eos % (Auto) Lymph # (Auto) [place] # (Auto) Eos # (Auto) Baso # (Auto) Seg Neutrophils % Seg Neuts % (Manual) Lymphocytes % (Manual) Seg Neutrophils # Seg Neutrophils # Man Lymphocytes # (Manual) D-Dimer ABG pH POC ABG pCO2 POC ABG pO2 ABG pO2 ABG HCO3 ABG O2 Saturation ABG Base Excess ABG Oxyhemoglobin ABG Sodium ABG Chloride ABG Glucose Oxyhemoglobin Carboxyhemoglobin Sodium Potassium Chloride Carbon Dioxide BUN Creatinine Glucose POC Glucose 159 H 111 H 202 H Hemoglobin A1c Magnesium Ferritin AST ALT Alkaline Phosphatase Lactate Dehydrogenase C-Reactive Protein Total Protein Albumin Arterial Blood Glucose Coronavirus (PCR) 08/03/21 08/03/21 08/04/21 16:47 21:26 07:57 WBC MCV MCH MCHC RDW Lymph % (Auto) [place] % (Auto) Eos % (Auto) Lymph # (Auto) [place] # (Auto) Eos # (Auto) Baso # (Auto) Seg Neutrophils % Seg Neuts % (Manual) Lymphocytes % (Manual) Seg Neutrophils # Seg Neutrophils # Man Lymphocytes # (Manual) D-Dimer ABG pH POC ABG pCO2 POC ABG pO2 ABG pO2 ABG HCO3 ABG O2 Saturation ABG Base Excess ABG Oxyhemoglobin ABG Sodium ABG Chloride ABG Glucose Oxyhemoglobin Carboxyhemoglobin Sodium Potassium Chloride Carbon Dioxide BUN Creatinine Glucose POC Glucose 133 H 148 H 129 H Hemoglobin A1c Magnesium Ferritin AST ALT Alkaline Phosphatase Lactate Dehydrogenase C-Reactive Protein Total Protein Albumin Arterial Blood Glucose Coronavirus (PCR) 08/04/21 08/04/21 08/04/21 08:05 11:42 16:53 WBC MCV MCH MCHC RDW Lymph % (Auto) [place] % (Auto) Eos % (Auto) Lymph # (Auto) [place] # (Auto) Eos # (Auto) Baso # (Auto) Seg Neutrophils % Seg Neuts % (Manual) Lymphocytes % (Manual) Seg Neutrophils # Seg Neutrophils # Man Lymphocytes # (Manual) D-Dimer ABG pH POC ABG pCO2 POC ABG pO2 ABG pO2 ABG HCO3 ABG O2 Saturation ABG Base Excess ABG Oxyhemoglobin ABG Sodium ABG Chloride ABG Glucose Oxyhemoglobin Carboxyhemoglobin Sodium Potassium Chloride Carbon Dioxide BUN Creatinine Glucose POC Glucose 145 H 187 H 112 H Hemoglobin A1c Magnesium Ferritin AST ALT Alkaline Phosphatase Lactate Dehydrogenase C-Reactive Protein Total Protein Albumin Arterial Blood Glucose Coronavirus (PCR) 08/04/21 08/05/21 21:27 07:35 WBC MCV MCH MCHC RDW Lymph % (Auto) [place] % (Auto) Eos % (Auto) Lymph # (Auto) [place] # (Auto) Eos # (Auto) Baso # (Auto) Seg Neutrophils % Seg Neuts % (Manual) Lymphocytes % (Manual) Seg Neutrophils # Seg Neutrophils # Man Lymphocytes # (Manual) D-Dimer ABG pH POC ABG pCO2 POC ABG pO2 ABG pO2 ABG HCO3 ABG O2 Saturation ABG Base Excess ABG Oxyhemoglobin ABG Sodium ABG Chloride ABG Glucose Oxyhemoglobin Carboxyhemoglobin Sodium Potassium Chloride Carbon Dioxide BUN Creatinine Glucose POC Glucose 189 H 146 H Hemoglobin A1c Magnesium Ferritin AST ALT Alkaline Phosphatase Lactate Dehydrogenase C-Reactive Protein Total Protein Albumin Arterial Blood Glucose Coronavirus (PCR)
[2021-08-05] MEDS: ZINC SULFATE 220 MG CAP PO SCH ×2 (10:06→23:28)
[2021-08-05] MEDS: ALPRAZolam 1 MG TAB PO SCH ×2 (10:06→23:28)
[2021-08-05] MEDS: INSULIN GLARGINE 100 UNITS/ML SUB-Q SCH (10:07)
[2021-08-05] MEDS: INSULIN LISPRO 100 UNIT/ML SUB-Q SCH ×3 (10:07→22:00)
[2021-08-05] MEDS: CHOLECALCIFEROL (VIT D3) 1000 UNIT (25 mcg) TAB PO SCH (10:07)
[2021-08-05] MEDS: ACETAMINOPHEN 325 MG TAB PO PRN (10:09)
--- NOTE | 2021-08-05 11:14 | Progress Note ---
Assessment and Plan Assessment and plan: #Acute hypoxic/hypercapneic respiratory failure #Severe ARDS -Currently on high flow nasal cannula, currently on 35 L 65% FiO2. -trial BiPAP at night -maintain SpO2 >88% -s/p prednisone taper -Pulmonology following, assistance appreciated -encouraged prone positioning; patient has been poorly tolerating it overnight #Metabolic alkalosis- -stable -Patient received multiple doses of Lasix over course of hospital stay but may be 2/2 to compensation for hypercapneia #Hypokalemia -will replete and monitor #Heart failure with preserved ejection fraction -TTE: LVEF 55-60% with diastolic dysfunction -will continue to monitor for signs of fluid overload #COVID-19 infection -Continue Covid vitamins #Type 2 diabetes -continue Lantus 5 units daily and sliding scale insulin #Anxiety -Stable -increased xanax dose at patients request #DVT prophylaxis -Lovenox 40 daily #Deconditioning -Will benefit from SNF after prolonged hospital stay #Advanced care planning -Disease education conducted, care plan discussed, diagnoses discussed, prognosis discussed, and patient acknowledges understanding with care plan -Time: +30 minutes Disposition Plan: Continue medical management Total Time Spent with Patient (Minutes): 45 minutes History Interval history: No acute events overnight. Hospitalist Physical - Constitutional Vitals: Temp Pulse Resp BP Pulse Ox 98.5 F 96 H 36 H 122/69 98 08/05/21 04:00 08/05/21 06:00 08/05/21 06:00 08/05/21 06:00 08/05/21 06:00 General appearance: Present: no acute distress, well-nourished, other (Looks tired) - EENT Eyes: Present: PERRL, EOM intact ENT: hearing intact, clear oral mucosa, dentition normal - Neck Neck: Present: supple, normal ROM - Respiratory Respiratory effort: normal Respiratory: bilateral: diminished (On high flow nasal cannula 35 L 65% FiO2) - Cardiovascular Rhythm: regular Heart Sounds: Present: S1 & S2 - Extremities Extremities: no ischemia, pulses intact, pulses symmetrical, No edema, normal temperature, normal color Peripheral Pulses: within normal limits - Abdominal General gastrointestinal: soft, non-tender, non-distended, normal bowel sounds - Integumentary Integumentary: Present: clear, warm, dry - Psychiatric Psychiatric: appropriate mood/affect, intact judgment & insight, memory intact, cooperative - Neurologic Neurologic: CNII-XII intact, moves all extremities - Allied Health Allied health notes reviewed: nursing Results - Labs CBC & Chem 7: 07/23/21 04:35 07/29/21 04:40 Labs: Laboratory Last Values WBC 10.8 K/mm3 (4.5-11.0) 07/23/21 04:35 RBC 3.84 M/mm3 (3.65-5.03) 07/23/21 04:35 Hgb 12.1 gm/dl (10.1-14.3) 07/23/21 04:35 Hct 37.6 % (30.3-42.9) 07/23/21 04:35 MCV 98 fl (79-97) H 07/23/21 04:35 MCH 32 pg (28-32) 07/23/21 04:35 MCHC 32 % (30-34) 07/23/21 04:35 RDW 16.2 % (13.2-15.2) H 07/23/21 04:35 Plt Count 367 K/mm3 (140-440) 07/23/21 04:35 Lymph % (Auto) 7.9 % (13.4-35.0) L 07/23/21 04:35 [place] % (Auto) 5.6 % (0.0-7.3) 07/23/21 04:35 Eos % (Auto) 0.8 % (0.0-4.3) 07/23/21 04:35 Baso % (Auto) 0.4 % (0.0-1.8) 07/23/21 04:35 Lymph # (Auto) 0.9 K/mm3 (1.2-5.4) L 07/23/21 04:35 [place] # (Auto) 0.6 K/mm3 (0.0-0.8) 07/23/21 04:35 Eos # (Auto) 0.1 K/mm3 (0.0-0.4) 07/23/21 04:35 Baso # (Auto) 0.0 K/mm3 (0.0-0.1) 07/23/21 04:35 Add Manual Diff Complete 07/09/21 04:45 Total Counted 100 07/09/21 04:45 Seg Neutrophils % 85.3 % (40.0-70.0) H 07/23/21 04:35 Seg Neuts % (Manual) 82.0 % (40.0-70.0) H 07/09/21 04:45 Band Neutrophils % 1.0 % 05/12/21 04:05 Lymphocytes % (Manual) 13.0 % (13.4-35.0) L 07/09/21 04:45 Monocytes % (Manual) 3.0 % (0.0-7.3) 07/09/21 04:45 Eosinophils % (Manual) 2.0 % (0.0-4.3) 07/09/21 04:45 Nucleated RBC % Not Reportable 07/09/21 04:45 Seg Neutrophils # 9.2 K/mm3 (1.8-7.7) H 07/23/21 04:35 Seg Neutrophils # Man 7.8 K/mm3 (1.8-7.7) H 07/09/21 04:45 Band Neutrophils # 0.0 K/mm3 07/09/21 04:45 Lymphocytes # (Manual) 1.2 K/mm3 (1.2-5.4) 07/09/21 04:45 Abs React Lymphs (Man) 0.0 K/mm3 07/09/21 04:45 Monocytes # (Manual) 0.3 K/mm3 (0.0-0.8) 07/09/21 04:45 Eosinophils # (Manual) 0.2 K/mm3 (0.0-0.4) 07/09/21 04:45 Basophils # (Manual) 0.0 K/mm3 (0.0-0.1) 07/09/21 04:45 Metamyelocytes # 0.0 K/mm3 07/09/21 04:45 Myelocytes # 0.0 K/mm3 07/09/21 04:45 Promyelocytes # 0.0 K/mm3 07/09/21 04:45 Blast Cells # 0.0 K/mm3 07/09/21 04:45 WBC Morphology Not Reportable 07/09/21 04:45 Hypersegmented Neuts Not Reportable 07/09/21 04:45 Hyposegmented Neuts Not Reportable 07/09/21 04:45 Hypogranular Neuts Not Reportable 07/09/21 04:45 Smudge Cells Not Reportable 07/09/21 04:45 Toxic Granulation Not Reportable 07/09/21 04:45 Toxic Vacuolation Not Reportable 07/09/21 04:45 Dohle Bodies Not Reportable 07/09/21 04:45 Pelger-Huet Anomaly Not Reportable 07/09/21 04:45 Janelle Rods Not Reportable 07/09/21 04:45 Platelet Estimate Consistent w auto 07/09/21 04:45 Clumped Platelets Not Reportable 07/09/21 04:45 Plt Clumps, EDTA Not Reportable 07/09/21 04:45 Large Platelets Not Reportable 07/09/21 04:45 Giant Platelets Rare 07/09/21 04:45 Platelet Satelliting Not Reportable 07/09/21 04:45 Plt Morphology Comment Not Reportable 07/09/21 04:45 RBC Morphology Not Reportable 07/09/21 04:45 Dimorphic RBCs Not Reportable 07/09/21 04:45 Polychromasia Not Reportable 07/09/21 04:45 Hypochromasia Few 07/09/21 04:45 Poikilocytosis Not Reportable 07/09/21 04:45 Anisocytosis Not Reportable 07/09/21 04:45 Microcytosis Not Reportable 07/09/21 04:45 Macrocytosis Not Reportable 07/09/21 04:45 Spherocytes Not Reportable 07/09/21 04:45 Pappenheimer Bodies Not Reportable 07/09/21 04:45 Sickle Cells Not Reportable 07/09/21 04:45 Target Cells Not Reportable 07/09/21 04:45 Tear Drop Cells Not Reportable 07/09/21 04:45 Ovalocytes Not Reportable 07/09/21 04:45 Stomatocytes 1+ 07/09/21 04:45 Helmet Cells Not Reportable 07/09/21 04:45 Ahuja-Orlovista Bodies Not Reportable 07/09/21 04:45 [place] Rings Not Reportable 07/09/21 04:45 Crow Cells Not Reportable 07/09/21 04:45 Bite Cells Not Reportable 07/09/21 04:45 Crenated Cell Not Reportable 07/09/21 04:45 Elliptocytes Not Reportable 07/09/21 04:45 Acanthocytes (Spur) Not Reportable 07/09/21 04:45 Rouleaux Not Reportable 07/09/21 04:45 Hemoglobin C Crystals Not Reportable 07/09/21 04:45 Schistocytes Not Reportable 07/09/21 04:45 Malaria parasites Not Reportable 07/09/21 04:45 Justin Bodies Not Reportable 07/09/21 04:45 Hem Pathologist Commnt No 07/09/21 04:45 D-Dimer 638.35 ng/mlDDU (0-234) H 07/09/21 04:45 ABG pH 7.417 (7.320-7.450) 07/23/21 18:11 POC ABG pCO2 78.3 mmHg (32.0-48.0) H 07/23/21 18:11 ABG pCO2 85.7 mm Hg 07/22/21 12:05 POC ABG pO2 80.7 mmHg (83-108) L 07/23/21 18:11 ABG pO2 66.1 mm Hg (80.0-90.0) L 07/22/21 12:05 POC ABG HCO3 49.3 07/23/21 18:11 ABG HCO3 45.0 mmol/L (20.0-26.0) H 07/22/21 12:05 ABG O2 Saturation 96.7 (0-100) 07/23/21 18:11 ABG O2 Content 16.8 (0.0-44) 07/22/21 12:05 POC ABG Base Excess 20.5 07/23/21 18:11 ABG Base Excess 15.2 mmol/L (-2.0-3.0) H 07/22/21 12:05 ABG Hemoglobin 12.6 (12.0-17.5) 07/23/21 18:11 ABG Oxyhemoglobin 95.7 (94-98) 07/23/21 18:11 ABG Carboxyhemoglobin 1.9 % (0.0-5.0) 07/22/21 12:05 ABG Methemoglobin 0.3 (0.0-1.5) 07/23/21 18:11 ABG Sodium 134.9 mmol/L (136.0-145.0) L 07/23/21 18:11 ABG Potassium 3.9 mmol/L (3.40-4.50) 07/23/21 18:11 ABG Chloride 89.0 mmol/L (98-107) L 07/23/21 18:11 ABG Glucose 200 mg/dL (65-95) H 07/23/21 18:11 Oxyhemoglobin 91.9 % (95.0-99.0) L 07/22/21 12:05 Carboxyhemoglobin 0.7 (0.5-1.5) 07/23/21 18:11 FiO2 100 % 07/22/21 12:05 FiO2 % 100.0 07/23/21 18:11 Sodium 141 mmol/L (137-145) 07/29/21 04:40 Potassium 3.4 mmol/L (3.6-5.0) L 07/29/21 04:40 Chloride 92.3 mmol/L (98-107) L 07/29/21 04:40 Carbon Dioxide 40 mmol/L (22-30) H 07/29/21 04:40 Anion Gap 12 mmol/L 07/29/21 04:40 BUN 8 mg/dL (7-17) 07/29/21 04:40 Creatinine < 0.2 mg/dL (0.6-1.2) L 07/29/21 04:40 Estimated GFR > 60 ml/min 07/29/21 04:40 BUN/Creatinine Ratio 40 % 07/29/21 04:40 Glucose 125 mg/dL (65-100) H 07/29/21 04:40 POC Glucose 146 mg/dL (70-105) H 08/05/21 07:35 Hemoglobin A1c 8.5 % (4-6) H 04/18/21 07:36 Calcium 9.2 mg/dL (8.4-10.2) 07/29/21 04:40 Phosphorus 3.70 mg/dL (2.5-4.5) 07/23/21 04:35 Magnesium 2.10 mg/dL (1.7-2.3) 07/23/21 04:35 Ferritin 155.9 ng/mL (10.0-200.0) 07/09/21 04:45 Total Bilirubin < 0.20 mg/dL (0.1-1.2) 07/26/21 09:56 AST 23 units/L (5-40) 07/26/21 09:56 ALT 25 units/L (7-56) 07/26/21 09:56 Alkaline Phosphatase 69 units/L (35-129) 07/26/21 09:56 Lactate Dehydrogenase 475 units/L (91-180) H 06/05/21 05:26 C-Reactive Protein 4.30 mg/dL (0.00-1.30) H 07/09/21 04:45 NT-Pro-B Natriuret Pep 59.45 pg/mL (0-450) 07/07/21 13:40 Total Protein 8.1 g/dL (6.3-8.2) 07/26/21 09:56 Albumin 3.2 g/dL (3.9-5) L 07/26/21 09:56 Albumin/Globulin Ratio 0.7 % 07/26/21 09:56 Triglycerides < 9 mg/dL (2-149) 05/03/21 04:30 Procalcitonin < 0.05 ng/mL (<0.15) 05/23/21 09:50 Arterial Blood Glucose 200 mg/dL (65-95) H 07/23/21 18:11 Arterial Blood Ionized Calcium 4.6 mg/dL (4.6-5.3) 07/23/21 18:11 Coronavirus (PCR) Negative (Negative) 07/25/21 Unknown Amos/IV: Voiding Method External Female Catheter Active Medications - Current Medications Current Medications: Generic Name Dose Route Start Last Admin Trade Name Freq PRN Reason Stop Dose Admin Acetaminophen 650 mg 07/02/21 17:48 08/05/21 10:09 Acetaminophen 325 Mg Tab PO 650 mg Q4H PRN Administration Pain, Mild (1-3) Albuterol 2.5 mg 04/16/21 13:39 04/21/21 20:39 Albuterol 2.5 Mg/3 Ml Nebu IH 2.5 mg Q4HRT PRN Administration Shortness Of Breath Alprazolam 2 mg 07/29/21 22:00 08/05/21 10:06 Alprazolam 1 Mg Tab PO 2 mg BID TUTU Administration Calcium Carbonate/Glycine 500 mg 07/24/21 10:43 Calcium Carbonate 500 Mg Tab Chew PO BID PRN reflux Cholecalciferol 1,000 unit 04/17/21 10:00 08/05/21 10:07 Cholecalciferol (Vit D3) 1000 Unit (25 Mcg) Tab PO 1,000 unit QDAY TUTU Administration Enoxaparin Sodium 40 mg 09/05/21 22:00 08/04/21 21:55 Enoxaparin 40 Mg/0.4 Ml Inj SUB-Q 40 mg QDAY@2200 TUTU Administration Protocol Ibuprofen 600 mg 07/11/21 11:00 07/26/21 11:10 Ibuprofen 600 Mg Tab PO 600 mg Q6H PRN Administration Ear Pain Insulin Glargine 5 units 07/25/21 10:00 08/05/21 10:07 Insulin Glargine 100 Units/Ml SUB-Q 5 units DAILY TUTU Administration Insulin Human Lispro 0 unit 05/18/21 12:00 08/05/21 10:07 Insulin Lispro 100 Unit/Ml SUB-Q Not Given ACHS [facility] Protocol Ondansetron HCl 4 mg 04/16/21 14:00 05/30/21 10:07 Ondansetron 4 Mg/2 Ml Inj IV 4 mg Q8H PRN Administration Nausea And Vomiting Polyethylene Glycol 17 gm 07/16/21 20:00 Polyethylene Glycol 3350 17 Gm Powder PO QDAY PRN Constipation Sodium Chloride 10 ml 04/16/21 13:39 07/27/21 10:47 Sodium Chloride 0.9% 10 Ml Flush Syringe IV 10 ml PRN PRN Administration LINE FLUSH Zinc Sulfate 220 mg 04/16/21 22:00 08/05/21 10:06 Zinc Sulfate 220 Mg Cap PO 220 mg BID TUTU Administration Nutrition/Malnutrition Assess - Dietary Evaluation Nutrition/Malnutrition Findings: Nutrition Notes Start: 04/23/21 07:41 Freq: Status: Active Protocol: Document 07/03/21 16:54 GB (Rec: 07/03/21 17:11 GB [id number]) Nutrition Notes Initial or Follow up Reassessment Current Diagnosis Respiratory Failure Other Pertinent Diagnosis oral thrush, COVID-19 pneu Current Diet consistent carbohydrate Labs/Tests 07/03: creatinine 0.3, K 3.2 Pertinent Medications Vit C, Vit D3, D5 (PRN), Prednisone, NaCl, Zn Sulfate Height 4 ft 11.84 in Weight 60.3 kg [place] Body Weight (kg) 45.09 BMI 26.1 Weight change and time frame 04/16/21: 74.843kg 05/17/21: 68.1kg 06/16/21: 60.3kg change of -14.54kg for -19.43% in 60 days. Per MD note: pt has been diuresed thorughout stay. Weight Status Overweight Subjective/Other Information MD notes 07/03: pt showing improvement, prednisone weaning down, possible weaning of O2. Last BM: 07/02 PO intake recorded at 50-100% Percent of energy/protein needs met: PO intake of meals meet 75% or greater of EEN Burn Absent Trauma Absent GI Symptoms None Food Allergy No Skin Integrity/Comment skin tear rt/lt buttocks Current % PO Good (75-100%) Minimum of two criteria No #3 Nutrition Diagnosis No nutrition diagnosis at this time Etiology respiratory failure As Evidenced by Signs and Symptoms recovering, good po, weight loss r/t diurese therapy #2 Nutrition Diagnosis Malnutrition Comments: Wt loss due to diurese for most of stay. PO intake is recorded at 75- 100% Etiology acute illness As Evidenced by Signs and Symptoms <50% EER in >5 days, >5% wt loss in 1 month Diagnosis Progress(for reassessment Resolved documentation) #1 Nutrition Diagnosis Inadequate oral intake Etiology ARF As Evidenced by Signs and Symptoms pt continues to meet 100%/93% of kcal/protein needs Diagnosis Progress(for reassessment Resolved documentation) Is patient on ventilator? No Is Patient Ambulatory and/or Out of Bed Yes REE-([place]-St. Jeor-ambulatory/OOB) [ 1491.022 [id number]] Kcal/Kg value to use for calculation 25 Approximate Energy Requirements Using 1508 kcal/Kg Calculation Used for Recommendations Kcal/kg Additional Notes Pro needs 1-1.2g/kg @ 60k -72g/day Fluid needs 1ml/kcal or per MD Nutrition Intervention Change Diet Order: continue Nutrition Support: n/a Add Supplement/Snack (indicate name/kcal n/a /protein ) Goal #1 PO intake of meals to be 75% or greater daily for LOS Goal #2 Weight to stabilize +/-3% current weight for LOS Follow-Up By: 08/07/21 Additional Comments f/u: po intake, weight
[2021-08-05] MEDS: ENOXAPARIN 40 MG/0.4 ML INJ SUB-Q SCH (23:28)
[2021-08-06] MEDS: INSULIN LISPRO 100 UNIT/ML SUB-Q SCH ×2 (08:18→21:44)
[2021-08-06] MEDS: CHOLECALCIFEROL (VIT D3) 1000 UNIT (25 mcg) TAB PO SCH (11:00)
[2021-08-06] MEDS: ALPRAZolam 1 MG TAB PO SCH ×2 (11:00→21:45)
[2021-08-06] MEDS: INSULIN GLARGINE 100 UNITS/ML SUB-Q SCH (11:00)
[2021-08-06] MEDS: ZINC SULFATE 220 MG CAP PO SCH ×2 (11:01→21:45)
--- NOTE | 2021-08-06 11:44 | Progress Note ---
Assessment and Plan Assessment and plan: #Acute hypoxic/hypercapneic respiratory failure #Severe ARDS -high flow nasal cannula, currently on 65% FIO2 -BiPAP at night , patient continues to refuse -maintain SpO2 >88% -s/p prednisone taper -Pulmonology following, assistance appreciated -encouraged patient to prone herself when she is awake #Metabolic alkalosis -stable -Patient received multiple doses of Lasix over course of hospital stay but may be 2/2 to compensation for hypercapneia #Heart failure with preserved ejection fraction -TTE: LVEF 55-60% with diastolic dysfunction -will continue to monitor for signs of fluid overload #COVID-19 infection -Continue Covid vitamins #Type 2 diabetes -continue Lantus 5 units daily and sliding scale insulin #Anxiety -Stable -continue xanax #DVT prophylaxis -Lovenox 40 daily #Deconditioning -Will benefit from SNF after prolonged hospital stay Resolved issues #Sepsis secondary to COVID-19 #Iatrogenic diarrhea #Hypomagnesemia #Hyponatremia #Protein calorie malnutrition #Dysuria #Hypokalemia #Possible UTI Disposition Plan: Continue medical management Total Time Spent with Patient (Minutes): 20 minutes History Interval history: No acute events overnight. On HFNC 35/65%. Refused BiPAP overnight. Currently having lower back pain that is relieved with ibuprofen. Hospitalist Physical - Physical exam Narrative exam: GENERAL: Well-developed well-nourished. Lying in bed in no acute distress. HEENT: High flow nasal cannula at 35L/65% CHEST/LUNGS: Coarse breath sounds bilaterally. HEART/CARDIOVASCULAR: Mildly achycardic. No murmur, rubs or gallops appreciated. ABDOMEN: +BS. NT/ND. PSYCH: Cooperative. - Constitutional Vitals: Temp Pulse Resp BP Pulse Ox 97.8 F 92 H 33 H 127/68 98 08/06/21 08:00 08/06/21 06:00 08/06/21 06:00 08/06/21 06:00 08/06/21 08:40 General appearance: Present: no acute distress, well-nourished, other (Looks tired) Results - Labs CBC & Chem 7: 07/23/21 04:35 07/29/21 04:40 Labs: Laboratory Last Values WBC 10.8 K/mm3 (4.5-11.0) 07/23/21 04:35 RBC 3.84 M/mm3 (3.65-5.03) 07/23/21 04:35 Hgb 12.1 gm/dl (10.1-14.3) 07/23/21 04:35 Hct 37.6 % (30.3-42.9) 07/23/21 04:35 MCV 98 fl (79-97) H 07/23/21 04:35 MCH 32 pg (28-32) 07/23/21 04:35 MCHC 32 % (30-34) 07/23/21 04:35 RDW 16.2 % (13.2-15.2) H 07/23/21 04:35 Plt Count 367 K/mm3 (140-440) 07/23/21 04:35 Lymph % (Auto) 7.9 % (13.4-35.0) L 07/23/21 04:35 [place] % (Auto) 5.6 % (0.0-7.3) 07/23/21 04:35 Eos % (Auto) 0.8 % (0.0-4.3) 07/23/21 04:35 Baso % (Auto) 0.4 % (0.0-1.8) 07/23/21 04:35 Lymph # (Auto) 0.9 K/mm3 (1.2-5.4) L 07/23/21 04:35 Canadian # (Auto) 0.6 K/mm3 (0.0-0.8) 07/23/21 04:35 Eos # (Auto) 0.1 K/mm3 (0.0-0.4) 07/23/21 04:35 Baso # (Auto) 0.0 K/mm3 (0.0-0.1) 07/23/21 04:35 Add Manual Diff Complete 07/09/21 04:45 Total Counted 100 07/09/21 04:45 Seg Neutrophils % 85.3 % (40.0-70.0) H 07/23/21 04:35 Seg Neuts % (Manual) 82.0 % (40.0-70.0) H 07/09/21 04:45 Band Neutrophils % 1.0 % 05/12/21 04:05 Lymphocytes % (Manual) 13.0 % (13.4-35.0) L 07/09/21 04:45 Monocytes % (Manual) 3.0 % (0.0-7.3) 07/09/21 04:45 Eosinophils % (Manual) 2.0 % (0.0-4.3) 07/09/21 04:45 Nucleated RBC % Not Reportable 07/09/21 04:45 Seg Neutrophils # 9.2 K/mm3 (1.8-7.7) H 07/23/21 04:35 Seg Neutrophils # Man 7.8 K/mm3 (1.8-7.7) H 07/09/21 04:45 Band Neutrophils # 0.0 K/mm3 07/09/21 04:45 Lymphocytes # (Manual) 1.2 K/mm3 (1.2-5.4) 07/09/21 04:45 Abs React Lymphs (Man) 0.0 K/mm3 07/09/21 04:45 Monocytes # (Manual) 0.3 K/mm3 (0.0-0.8) 07/09/21 04:45 Eosinophils # (Manual) 0.2 K/mm3 (0.0-0.4) 07/09/21 04:45 Basophils # (Manual) 0.0 K/mm3 (0.0-0.1) 07/09/21 04:45 Metamyelocytes # 0.0 K/mm3 07/09/21 04:45 Myelocytes # 0.0 K/mm3 07/09/21 04:45 Promyelocytes # 0.0 K/mm3 07/09/21 04:45 Blast Cells # 0.0 K/mm3 07/09/21 04:45 WBC Morphology Not Reportable 07/09/21 04:45 Hypersegmented Neuts Not Reportable 07/09/21 04:45 Hyposegmented Neuts Not Reportable 07/09/21 04:45 Hypogranular Neuts Not Reportable 07/09/21 04:45 Smudge Cells Not Reportable 07/09/21 04:45 Toxic Granulation Not Reportable 07/09/21 04:45 Toxic Vacuolation Not Reportable 07/09/21 04:45 Dohle Bodies Not Reportable 07/09/21 04:45 Pelger-Huet Anomaly Not Reportable 07/09/21 04:45 Janelle Rods Not Reportable 07/09/21 04:45 Platelet Estimate Consistent w auto 07/09/21 04:45 Clumped Platelets Not Reportable 07/09/21 04:45 Plt Clumps, EDTA Not Reportable 07/09/21 04:45 Large Platelets Not Reportable 07/09/21 04:45 Giant Platelets Rare 07/09/21 04:45 Platelet Satelliting Not Reportable 07/09/21 04:45 Plt Morphology Comment Not Reportable 07/09/21 04:45 RBC Morphology Not Reportable 07/09/21 04:45 Dimorphic RBCs Not Reportable 07/09/21 04:45 Polychromasia Not Reportable 07/09/21 04:45 Hypochromasia Few 07/09/21 04:45 Poikilocytosis Not Reportable 07/09/21 04:45 Anisocytosis Not Reportable 07/09/21 04:45 Microcytosis Not Reportable 07/09/21 04:45 Macrocytosis Not Reportable 07/09/21 04:45 Spherocytes Not Reportable 07/09/21 04:45 Pappenheimer Bodies Not Reportable 07/09/21 04:45 Sickle Cells Not Reportable 07/09/21 04:45 Target Cells Not Reportable 07/09/21 04:45 Tear Drop Cells Not Reportable 07/09/21 04:45 Ovalocytes Not Reportable 07/09/21 04:45 Stomatocytes 1+ 07/09/21 04:45 Helmet Cells Not Reportable 07/09/21 04:45 Ahuja-Linden Bodies Not Reportable 07/09/21 04:45 [place] Rings Not Reportable 07/09/21 04:45 Crow Cells Not Reportable 07/09/21 04:45 Bite Cells Not Reportable 07/09/21 04:45 Crenated Cell Not Reportable 07/09/21 04:45 Elliptocytes Not Reportable 07/09/21 04:45 Acanthocytes (Spur) Not Reportable 07/09/21 04:45 Rouleaux Not Reportable 07/09/21 04:45 Hemoglobin C Crystals Not Reportable 07/09/21 04:45 Schistocytes Not Reportable 07/09/21 04:45 Malaria parasites Not Reportable 07/09/21 04:45 Justin Bodies Not Reportable 07/09/21 04:45 Hem Pathologist Commnt No 07/09/21 04:45 D-Dimer 638.35 ng/mlDDU (0-234) H 07/09/21 04:45 ABG pH 7.417 (7.320-7.450) 07/23/21 18:11 POC ABG pCO2 78.3 mmHg (32.0-48.0) H 07/23/21 18:11 ABG pCO2 85.7 mm Hg 07/22/21 12:05 POC ABG pO2 80.7 mmHg (83-108) L 07/23/21 18:11 ABG pO2 66.1 mm Hg (80.0-90.0) L 07/22/21 12:05 POC ABG HCO3 49.3 07/23/21 18:11 ABG HCO3 45.0 mmol/L (20.0-26.0) H 07/22/21 12:05 ABG O2 Saturation 96.7 (0-100) 07/23/21 18:11 ABG O2 Content 16.8 (0.0-44) 07/22/21 12:05 POC ABG Base Excess 20.5 07/23/21 18:11 ABG Base Excess 15.2 mmol/L (-2.0-3.0) H 07/22/21 12:05 ABG Hemoglobin 12.6 (12.0-17.5) 07/23/21 18:11 ABG Oxyhemoglobin 95.7 (94-98) 07/23/21 18:11 ABG Carboxyhemoglobin 1.9 % (0.0-5.0) 07/22/21 12:05 ABG Methemoglobin 0.3 (0.0-1.5) 07/23/21 18:11 ABG Sodium 134.9 mmol/L (136.0-145.0) L 07/23/21 18:11 ABG Potassium 3.9 mmol/L (3.40-4.50) 07/23/21 18:11 ABG Chloride 89.0 mmol/L (98-107) L 07/23/21 18:11 ABG Glucose 200 mg/dL (65-95) H 07/23/21 18:11 Oxyhemoglobin 91.9 % (95.0-99.0) L 07/22/21 12:05 Carboxyhemoglobin 0.7 (0.5-1.5) 07/23/21 18:11 FiO2 100 % 07/22/21 12:05 FiO2 % 100.0 07/23/21 18:11 Sodium 141 mmol/L (137-145) 07/29/21 04:40 Potassium 3.4 mmol/L (3.6-5.0) L 07/29/21 04:40 Chloride 92.3 mmol/L (98-107) L 07/29/21 04:40 Carbon Dioxide 40 mmol/L (22-30) H 07/29/21 04:40 Anion Gap 12 mmol/L 07/29/21 04:40 BUN 8 mg/dL (7-17) 07/29/21 04:40 Creatinine < 0.2 mg/dL (0.6-1.2) L 07/29/21 04:40 Estimated GFR > 60 ml/min 07/29/21 04:40 BUN/Creatinine Ratio 40 % 07/29/21 04:40 Glucose 125 mg/dL (65-100) H 07/29/21 04:40 POC Glucose 128 mg/dL (70-105) H 08/06/21 07:29 Hemoglobin A1c 8.5 % (4-6) H 04/18/21 07:36 Calcium 9.2 mg/dL (8.4-10.2) 07/29/21 04:40 Phosphorus 3.70 mg/dL (2.5-4.5) 07/23/21 04:35 Magnesium 2.10 mg/dL (1.7-2.3) 07/23/21 04:35 Ferritin 155.9 ng/mL (10.0-200.0) 07/09/21 04:45 Total Bilirubin < 0.20 mg/dL (0.1-1.2) 07/26/21 09:56 AST 23 units/L (5-40) 07/26/21 09:56 ALT 25 units/L (7-56) 07/26/21 09:56 Alkaline Phosphatase 69 units/L (35-129) 07/26/21 09:56 Lactate Dehydrogenase 475 units/L (91-180) H 06/05/21 05:26 C-Reactive Protein 4.30 mg/dL (0.00-1.30) H 07/09/21 04:45 NT-Pro-B Natriuret Pep 59.45 pg/mL (0-450) 07/07/21 13:40 Total Protein 8.1 g/dL (6.3-8.2) 07/26/21 09:56 Albumin 3.2 g/dL (3.9-5) L 07/26/21 09:56 Albumin/Globulin Ratio 0.7 % 07/26/21 09:56 Triglycerides < 9 mg/dL (2-149) 05/03/21 04:30 Procalcitonin < 0.05 ng/mL (<0.15) 05/23/21 09:50 Arterial Blood Glucose 200 mg/dL (65-95) H 07/23/21 18:11 Arterial Blood Ionized Calcium 4.6 mg/dL (4.6-5.3) 07/23/21 18:11 Coronavirus (PCR) Negative (Negative) 07/25/21 Unknown Amos/IV: Voiding Method External Female Catheter Active Medications - Current Medications Current Medications: Generic Name Dose Route Start Last Admin Trade Name Freq PRN Reason Stop Dose Admin Acetaminophen 650 mg 07/02/21 17:48 08/05/21 10:09 Acetaminophen 325 Mg Tab PO 650 mg Q4H PRN Administration Pain, Mild (1-3) Albuterol 2.5 mg 04/16/21 13:39 04/21/21 20:39 Albuterol 2.5 Mg/3 Ml Nebu IH 2.5 mg Q4HRT PRN Administration Shortness Of Breath Alprazolam 2 mg 07/29/21 22:00 08/06/21 11:00 Alprazolam 1 Mg Tab PO 2 mg BID TUTU Administration Calcium Carbonate/Glycine 500 mg 07/24/21 10:43 Calcium Carbonate 500 Mg Tab Chew PO BID PRN reflux Cholecalciferol 1,000 unit 04/17/21 10:00 08/06/21 11:00 Cholecalciferol (Vit D3) 1000 Unit (25 Mcg) Tab PO 1,000 unit QDAY TUTU Administration Enoxaparin Sodium 40 mg 05/19/21 22:00 08/05/21 23:28 Enoxaparin 40 Mg/0.4 Ml Inj SUB-Q 40 mg QDAY@2200 TUTU Administration Protocol Ibuprofen 600 mg 07/11/21 11:00 07/26/21 11:10 Ibuprofen 600 Mg Tab PO 600 mg Q6H PRN Administration Ear Pain Insulin Glargine 5 units 07/25/21 10:00 08/06/21 11:00 Insulin Glargine 100 Units/Ml SUB-Q 5 units DAILY TUTU Administration Insulin Human Lispro 0 unit 05/18/21 12:00 08/06/21 08:18 Insulin Lispro 100 Unit/Ml SUB-Q Not Given ACHS [facility] Protocol Ondansetron HCl 4 mg 04/16/21 14:00 05/30/21 10:07 Ondansetron 4 Mg/2 Ml Inj IV 4 mg Q8H PRN Administration Nausea And Vomiting Polyethylene Glycol 17 gm 07/16/21 20:00 Polyethylene Glycol 3350 17 Gm Powder PO QDAY PRN Constipation Sodium Chloride 10 ml 04/16/21 13:39 07/27/21 10:47 Sodium Chloride 0.9% 10 Ml Flush Syringe IV 10 ml PRN PRN Administration LINE FLUSH Zinc Sulfate 220 mg 04/16/21 22:00 08/06/21 11:01 Zinc Sulfate 220 Mg Cap PO 220 mg BID TUTU Administration Nutrition/Malnutrition Assess - Dietary Evaluation Nutrition/Malnutrition Findings: Nutrition Notes Start: 04/23/21 07:41 Freq: Status: Active Protocol: Document 07/03/21 16:54 GB (Rec: 07/03/21 17:11 GB [id number]) Nutrition Notes Initial or Follow up Reassessment Current Diagnosis Respiratory Failure Other Pertinent Diagnosis oral thrush, COVID-19 pneu Current Diet consistent carbohydrate Labs/Tests 07/03: creatinine 0.3, K 3.2 Pertinent Medications Vit C, Vit D3, D5 (PRN), Prednisone, NaCl, Zn Sulfate Height 4 ft 11.84 in Weight 60.3 kg [place] Body Weight (kg) 45.09 BMI 26.1 Weight change and time frame 04/16/21: 74.843kg 05/17/21: 68.1kg 06/16/21: 60.3kg change of -14.54kg for -19.43% in 60 days. Per MD note: pt has been diuresed thorughout stay. Weight Status Overweight Subjective/Other Information MD notes 07/03: pt showing improvement, prednisone weaning down, possible weaning of O2. Last BM: 07/02 PO intake recorded at 50-100% Percent of energy/protein needs met: PO intake of meals meet 75% or greater of EEN Burn Absent Trauma Absent GI Symptoms None Food Allergy No Skin Integrity/Comment skin tear rt/lt buttocks Current % PO Good (75-100%) Minimum of two criteria No #3 Nutrition Diagnosis No nutrition diagnosis at this time Etiology respiratory failure As Evidenced by Signs and Symptoms recovering, good po, weight loss r/t diurese therapy #2 Nutrition Diagnosis Malnutrition Comments: Wt loss due to diurese for most of stay. PO intake is recorded at 75- 100% Etiology acute illness As Evidenced by Signs and Symptoms <50% EER in >5 days, >5% wt loss in 1 month Diagnosis Progress(for reassessment Resolved documentation) #1 Nutrition Diagnosis Inadequate oral intake Etiology ARF As Evidenced by Signs and Symptoms pt continues to meet 100%/93% of kcal/protein needs Diagnosis Progress(for reassessment Resolved documentation) Is patient on ventilator? No Is Patient Ambulatory and/or Out of Bed Yes [facility] [ 1491.022 [id number]] Kcal/Kg value to use for calculation 25 Approximate Energy Requirements Using 1508 kcal/Kg Calculation Used for Recommendations Kcal/kg Additional Notes Pro needs 1-1.2g/kg @ 60k -72g/day Fluid needs 1ml/kcal or per MD Nutrition Intervention Change Diet Order: continue Nutrition Support: n/a Add Supplement/Snack (indicate name/kcal n/a /protein ) Goal #1 PO intake of meals to be 75% or greater daily for LOS Goal #2 Weight to stabilize +/-3% current weight for LOS Follow-Up By: 08/07/21 Additional Comments f/u: po intake, weight
[2021-08-06] MEDS: ACETAMINOPHEN 325 MG TAB PO PRN (21:45)
[2021-08-06] MEDS: ENOXAPARIN 40 MG/0.4 ML INJ SUB-Q SCH (21:45)
[2021-08-07] MEDS ORDERED: LORazepam 2 MG/ML VIAL IV ONE (01:24)
--- NOTE | 2021-08-07 08:12 | Progress Note ---
Assessment and Plan Assessment and plan: #Acute hypoxic/hypercapneic respiratory failure #Severe ARDS -currently on BiPAP 10/10, FIO2 55% and rate of 15 -plan to maintain SpO2 >88%, HFNC during the day and BiPAP at night and PRN -s/p prednisone taper; patient continues to desaturate may consider restarting steroids at Pulmonology guidance -encouraged patient to prone herself when she is awake #Metabolic alkalosis -stable -Patient received multiple doses of Lasix over course of hospital stay but may be 2/2 to compensation for hypercapneia -BMP tomorrow #Heart failure with preserved ejection fraction -TTE: LVEF 55-60% with diastolic dysfunction -will continue to monitor for signs of fluid overload #COVID-19 infection -Continue Covid vitamins #Type 2 diabetes -continue Lantus 5 units daily and sliding scale insulin #Anxiety -Stable -continue xanax #DVT prophylaxis -Lovenox 40 daily #Deconditioning -Will benefit from SNF after prolonged hospital stay Resolved issues #Sepsis secondary to COVID-19 #Iatrogenic diarrhea #Hypomagnesemia #Hyponatremia #Protein calorie malnutrition #Dysuria #Hypokalemia #Possible UTI Disposition Plan: Continue medical management Total Time Spent with Patient (Minutes): 20 minutes History Interval history: No acute events overnight. On BiPAP currently. Appears to be comfortable with improvement in vital signs. No complaints at this time. Hospitalist Physical - Physical exam Narrative exam: GENERAL: Well-developed well-nourished. Lying in bed in no acute distress. HEENT: BiPAP in place. CHEST/LUNGS: Coarse breath sounds bilaterally. HEART/CARDIOVASCULAR: Mildly tachycardic. No murmur, rubs or gallops appreciated. ABDOMEN: +BS. NT/ND. PSYCH: Cooperative. - Constitutional Vitals: Temp Pulse Resp BP Pulse Ox 98.0 F 81 31 H 112/69 100 08/07/21 07:43 08/07/21 06:00 08/07/21 06:00 08/07/21 06:00 08/07/21 06:00 General appearance: Present: no acute distress, well-nourished, other (Looks tired) Results - Labs CBC & Chem 7: 07/23/21 04:35 07/29/21 04:40 Labs: Laboratory Last Values WBC 10.8 K/mm3 (4.5-11.0) 07/23/21 04:35 RBC 3.84 M/mm3 (3.65-5.03) 07/23/21 04:35 Hgb 12.1 gm/dl (10.1-14.3) 07/23/21 04:35 Hct 37.6 % (30.3-42.9) 07/23/21 04:35 MCV 98 fl (79-97) H 07/23/21 04:35 MCH 32 pg (28-32) 07/23/21 04:35 MCHC 32 % (30-34) 07/23/21 04:35 RDW 16.2 % (13.2-15.2) H 07/23/21 04:35 Plt Count 367 K/mm3 (140-440) 07/23/21 04:35 Lymph % (Auto) 7.9 % (13.4-35.0) L 07/23/21 04:35 [place] % (Auto) 5.6 % (0.0-7.3) 07/23/21 04:35 Eos % (Auto) 0.8 % (0.0-4.3) 07/23/21 04:35 Baso % (Auto) 0.4 % (0.0-1.8) 07/23/21 04:35 Lymph # (Auto) 0.9 K/mm3 (1.2-5.4) L 07/23/21 04:35 [place] # (Auto) 0.6 K/mm3 (0.0-0.8) 07/23/21 04:35 Eos # (Auto) 0.1 K/mm3 (0.0-0.4) 07/23/21 04:35 Baso # (Auto) 0.0 K/mm3 (0.0-0.1) 07/23/21 04:35 Add Manual Diff Complete 07/09/21 04:45 Total Counted 100 07/09/21 04:45 Seg Neutrophils % 85.3 % (40.0-70.0) H 07/23/21 04:35 Seg Neuts % (Manual) 82.0 % (40.0-70.0) H 07/09/21 04:45 Band Neutrophils % 1.0 % 05/12/21 04:05 Lymphocytes % (Manual) 13.0 % (13.4-35.0) L 07/09/21 04:45 Monocytes % (Manual) 3.0 % (0.0-7.3) 07/09/21 04:45 Eosinophils % (Manual) 2.0 % (0.0-4.3) 07/09/21 04:45 Nucleated RBC % Not Reportable 07/09/21 04:45 Seg Neutrophils # 9.2 K/mm3 (1.8-7.7) H 07/23/21 04:35 Seg Neutrophils # Man 7.8 K/mm3 (1.8-7.7) H 07/09/21 04:45 Band Neutrophils # 0.0 K/mm3 07/09/21 04:45 Lymphocytes # (Manual) 1.2 K/mm3 (1.2-5.4) 07/09/21 04:45 Abs React Lymphs (Man) 0.0 K/mm3 07/09/21 04:45 Monocytes # (Manual) 0.3 K/mm3 (0.0-0.8) 07/09/21 04:45 Eosinophils # (Manual) 0.2 K/mm3 (0.0-0.4) 07/09/21 04:45 Basophils # (Manual) 0.0 K/mm3 (0.0-0.1) 07/09/21 04:45 Metamyelocytes # 0.0 K/mm3 07/09/21 04:45 Myelocytes # 0.0 K/mm3 07/09/21 04:45 Promyelocytes # 0.0 K/mm3 07/09/21 04:45 Blast Cells # 0.0 K/mm3 07/09/21 04:45 WBC Morphology Not Reportable 07/09/21 04:45 Hypersegmented Neuts Not Reportable 07/09/21 04:45 Hyposegmented Neuts Not Reportable 07/09/21 04:45 Hypogranular Neuts Not Reportable 07/09/21 04:45 Smudge Cells Not Reportable 07/09/21 04:45 Toxic Granulation Not Reportable 07/09/21 04:45 Toxic Vacuolation Not Reportable 07/09/21 04:45 Dohle Bodies Not Reportable 07/09/21 04:45 Pelger-Huet Anomaly Not Reportable 07/09/21 04:45 Janelle Rods Not Reportable 07/09/21 04:45 Platelet Estimate Consistent w auto 07/09/21 04:45 Clumped Platelets Not Reportable 07/09/21 04:45 Plt Clumps, EDTA Not Reportable 07/09/21 04:45 Large Platelets Not Reportable 07/09/21 04:45 Giant Platelets Rare 07/09/21 04:45 Platelet Satelliting Not Reportable 07/09/21 04:45 Plt Morphology Comment Not Reportable 07/09/21 04:45 RBC Morphology Not Reportable 07/09/21 04:45 Dimorphic RBCs Not Reportable 07/09/21 04:45 Polychromasia Not Reportable 07/09/21 04:45 Hypochromasia Few 07/09/21 04:45 Poikilocytosis Not Reportable 07/09/21 04:45 Anisocytosis Not Reportable 07/09/21 04:45 Microcytosis Not Reportable 07/09/21 04:45 Macrocytosis Not Reportable 07/09/21 04:45 Spherocytes Not Reportable 07/09/21 04:45 Pappenheimer Bodies Not Reportable 07/09/21 04:45 Sickle Cells Not Reportable 07/09/21 04:45 Target Cells Not Reportable 07/09/21 04:45 Tear Drop Cells Not Reportable 07/09/21 04:45 Ovalocytes Not Reportable 07/09/21 04:45 Stomatocytes 1+ 07/09/21 04:45 Helmet Cells Not Reportable 07/09/21 04:45 [place] Bodies Not Reportable 07/09/21 04:45 [place] Rings Not Reportable 07/09/21 04:45 Crow Cells Not Reportable 07/09/21 04:45 Bite Cells Not Reportable 07/09/21 04:45 Crenated Cell Not Reportable 07/09/21 04:45 Elliptocytes Not Reportable 07/09/21 04:45 Acanthocytes (Spur) Not Reportable 07/09/21 04:45 Rouleaux Not Reportable 07/09/21 04:45 Hemoglobin C Crystals Not Reportable 07/09/21 04:45 Schistocytes Not Reportable 07/09/21 04:45 Malaria parasites Not Reportable 07/09/21 04:45 Justin Bodies Not Reportable 07/09/21 04:45 Hem Pathologist Commnt No 07/09/21 04:45 D-Dimer 638.35 ng/mlDDU (0-234) H 07/09/21 04:45 ABG pH 7.417 (7.320-7.450) 07/23/21 18:11 POC ABG pCO2 78.3 mmHg (32.0-48.0) H 07/23/21 18:11 ABG pCO2 85.7 mm Hg 07/22/21 12:05 POC ABG pO2 80.7 mmHg (83-108) L 07/23/21 18:11 ABG pO2 66.1 mm Hg (80.0-90.0) L 07/22/21 12:05 POC ABG HCO3 49.3 07/23/21 18:11 ABG HCO3 45.0 mmol/L (20.0-26.0) H 07/22/21 12:05 ABG O2 Saturation 96.7 (0-100) 07/23/21 18:11 ABG O2 Content 16.8 (0.0-44) 07/22/21 12:05 POC ABG Base Excess 20.5 07/23/21 18:11 ABG Base Excess 15.2 mmol/L (-2.0-3.0) H 07/22/21 12:05 ABG Hemoglobin 12.6 (12.0-17.5) 07/23/21 18:11 ABG Oxyhemoglobin 95.7 (94-98) 07/23/21 18:11 ABG Carboxyhemoglobin 1.9 % (0.0-5.0) 07/22/21 12:05 ABG Methemoglobin 0.3 (0.0-1.5) 07/23/21 18:11 ABG Sodium 134.9 mmol/L (136.0-145.0) L 07/23/21 18:11 ABG Potassium 3.9 mmol/L (3.40-4.50) 07/23/21 18:11 ABG Chloride 89.0 mmol/L (98-107) L 07/23/21 18:11 ABG Glucose 200 mg/dL (65-95) H 07/23/21 18:11 Oxyhemoglobin 91.9 % (95.0-99.0) L 07/22/21 12:05 Carboxyhemoglobin 0.7 (0.5-1.5) 07/23/21 18:11 FiO2 100 % 07/22/21 12:05 FiO2 % 100.0 07/23/21 18:11 Sodium 141 mmol/L (137-145) 07/29/21 04:40 Potassium 3.4 mmol/L (3.6-5.0) L 07/29/21 04:40 Chloride 92.3 mmol/L (98-107) L 07/29/21 04:40 Carbon Dioxide 40 mmol/L (22-30) H 07/29/21 04:40 Anion Gap 12 mmol/L 07/29/21 04:40 BUN 8 mg/dL (7-17) 07/29/21 04:40 Creatinine < 0.2 mg/dL (0.6-1.2) L 07/29/21 04:40 Estimated GFR > 60 ml/min 07/29/21 04:40 BUN/Creatinine Ratio 40 % 07/29/21 04:40 Glucose 125 mg/dL (65-100) H 07/29/21 04:40 POC Glucose 134 mg/dL (70-105) H 08/07/21 07:17 Hemoglobin A1c 8.5 % (4-6) H 04/18/21 07:36 Calcium 9.2 mg/dL (8.4-10.2) 07/29/21 04:40 Phosphorus 3.70 mg/dL (2.5-4.5) 07/23/21 04:35 Magnesium 2.10 mg/dL (1.7-2.3) 07/23/21 04:35 Ferritin 155.9 ng/mL (10.0-200.0) 07/09/21 04:45 Total Bilirubin < 0.20 mg/dL (0.1-1.2) 07/26/21 09:56 AST 23 units/L (5-40) 07/26/21 09:56 ALT 25 units/L (7-56) 07/26/21 09:56 Alkaline Phosphatase 69 units/L (35-129) 07/26/21 09:56 Lactate Dehydrogenase 475 units/L (91-180) H 06/05/21 05:26 C-Reactive Protein 4.30 mg/dL (0.00-1.30) H 07/09/21 04:45 NT-Pro-B Natriuret Pep 59.45 pg/mL (0-450) 07/07/21 13:40 Total Protein 8.1 g/dL (6.3-8.2) 07/26/21 09:56 Albumin 3.2 g/dL (3.9-5) L 07/26/21 09:56 Albumin/Globulin Ratio 0.7 % 07/26/21 09:56 Triglycerides < 9 mg/dL (2-149) 05/03/21 04:30 Procalcitonin < 0.05 ng/mL (<0.15) 05/23/21 09:50 Arterial Blood Glucose 200 mg/dL (65-95) H 07/23/21 18:11 Arterial Blood Ionized Calcium 4.6 mg/dL (4.6-5.3) 07/23/21 18:11 Coronavirus (PCR) Negative (Negative) 07/25/21 Unknown Amos/IV: Voiding Method External Female Catheter Active Medications - Current Medications Current Medications: Generic Name Dose Route Start Last Admin Trade Name Freq PRN Reason Stop Dose Admin Acetaminophen 650 mg 07/02/21 17:48 08/06/21 21:45 Acetaminophen 325 Mg Tab PO 650 mg Q4H PRN Administration Pain, Mild (1-3) Albuterol 2.5 mg 04/16/21 13:39 04/21/21 20:39 Albuterol 2.5 Mg/3 Ml Nebu IH 2.5 mg Q4HRT PRN Administration Shortness Of Breath Alprazolam 2 mg 07/29/21 22:00 08/06/21 21:45 Alprazolam 1 Mg Tab PO 2 mg BID TUTU Administration Calcium Carbonate/Glycine 500 mg 07/24/21 10:43 Calcium Carbonate 500 Mg Tab Chew PO BID PRN reflux Cholecalciferol 1,000 unit 04/17/21 10:00 08/06/21 11:00 Cholecalciferol (Vit D3) 1000 Unit (25 Mcg) Tab PO 1,000 unit QDAY TUTU Administration Enoxaparin Sodium 40 mg 05/19/21 22:00 08/06/21 21:45 Enoxaparin 40 Mg/0.4 Ml Inj SUB-Q 40 mg QDAY@2200 TUTU Administration Protocol Ibuprofen 600 mg 07/11/21 11:00 07/26/21 11:10 Ibuprofen 600 Mg Tab PO 600 mg Q6H PRN Administration Ear Pain Insulin Glargine 5 units 07/25/21 10:00 08/06/21 11:00 Insulin Glargine 100 Units/Ml SUB-Q 5 units DAILY TUTU Administration Insulin Human Lispro 0 unit 05/18/21 12:00 08/06/21 21:44 Insulin Lispro 100 Unit/Ml SUB-Q 3 unit ACHS TUTU Administration Protocol Ondansetron HCl 4 mg 04/16/21 14:00 05/30/21 10:07 Ondansetron 4 Mg/2 Ml Inj IV 4 mg Q8H PRN Administration Nausea And Vomiting Polyethylene Glycol 17 gm 07/16/21 20:00 Polyethylene Glycol 3350 17 Gm Powder PO QDAY PRN Constipation Sodium Chloride 10 ml 04/16/21 13:39 07/27/21 10:47 Sodium Chloride 0.9% 10 Ml Flush Syringe IV 10 ml PRN PRN Administration LINE FLUSH Zinc Sulfate 220 mg 04/16/21 22:00 08/06/21 21:45 Zinc Sulfate 220 Mg Cap PO 220 mg BID TUTU Administration Nutrition/Malnutrition Assess - Dietary Evaluation Nutrition/Malnutrition Findings: Nutrition Notes Start: 04/23/21 07:41 Freq: Status: Active Protocol: Document 07/03/21 16:54 GB (Rec: 07/03/21 17:11 GB [id number]) Nutrition Notes Initial or Follow up Reassessment Current Diagnosis Respiratory Failure Other Pertinent Diagnosis oral thrush, COVID-19 pneu Current Diet consistent carbohydrate Labs/Tests 07/03: creatinine 0.3, K 3.2 Pertinent Medications Vit C, Vit D3, D5 (PRN), Prednisone, NaCl, Zn Sulfate Height 4 ft 11.84 in Weight 60.3 kg [place] Body Weight (kg) 45.09 BMI 26.1 Weight change and time frame 04/16/21: 74.843kg 05/17/21: 68.1kg 06/16/21: 60.3kg change of -14.54kg for -19.43% in 60 days. Per MD note: pt has been diuresed thorughout stay. Weight Status Overweight Subjective/Other Information MD notes 07/03: pt showing improvement, prednisone weaning down, possible weaning of O2. Last BM: 07/02 PO intake recorded at 50-100% Percent of energy/protein needs met: PO intake of meals meet 75% or greater of EEN Burn Absent Trauma Absent GI Symptoms None Food Allergy No Skin Integrity/Comment skin tear rt/lt buttocks Current % PO Good (75-100%) Minimum of two criteria No #3 Nutrition Diagnosis No nutrition diagnosis at this time Etiology respiratory failure As Evidenced by Signs and Symptoms recovering, good po, weight loss r/t diurese therapy #2 Nutrition Diagnosis Malnutrition Comments: Wt loss due to diurese for most of stay. PO intake is recorded at 75- 100% Etiology acute illness As Evidenced by Signs and Symptoms <50% EER in >5 days, >5% wt loss in 1 month Diagnosis Progress(for reassessment Resolved documentation) #1 Nutrition Diagnosis Inadequate oral intake Etiology ARF As Evidenced by Signs and Symptoms pt continues to meet 100%/93% of kcal/protein needs Diagnosis Progress(for reassessment Resolved documentation) Is patient on ventilator? No Is Patient Ambulatory and/or Out of Bed Yes REE-([facility]-ambulatory/OOB) [ 1491.022 [id number]] Kcal/Kg value to use for calculation 25 Approximate Energy Requirements Using 1508 kcal/Kg Calculation Used for Recommendations Kcal/kg Additional Notes Pro needs 1-1.2g/kg @ 60k -72g/day Fluid needs 1ml/kcal or per MD Nutrition Intervention Change Diet Order: continue Nutrition Support: n/a Add Supplement/Snack (indicate name/kcal n/a /protein ) Goal #1 PO intake of meals to be 75% or greater daily for LOS Goal #2 Weight to stabilize +/-3% current weight for LOS Follow-Up By: 08/07/21 Additional Comments f/u: po intake, weight
[2021-08-07] MEDS: INSULIN GLARGINE 100 UNITS/ML SUB-Q SCH (10:43)
[2021-08-07] MEDS: INSULIN LISPRO 100 UNIT/ML SUB-Q SCH ×2 (10:43→22:17)
[2021-08-07] MEDS: CHOLECALCIFEROL (VIT D3) 1000 UNIT (25 mcg) TAB PO SCH (10:45)
[2021-08-07] MEDS: ZINC SULFATE 220 MG CAP PO SCH ×2 (10:45→22:18)
[2021-08-07] MEDS: ALPRAZolam 1 MG TAB PO SCH ×2 (10:45→22:18)
--- NOTE | 2021-08-07 10:45 | Progress Note ---
Assessment and Plan 50 y/o female with acute respiratory failure secondary to COVID19 pneumonia. 08/07/21: Constant struggle with Ms. Ren, on and off bipap. Good and bad days. She has had all therapy. Anxiety does play a huge roll but she truly desats. Continue NIV at night and PRN during the day. Wean HFNC as tolerated for sats >88%. May consider another trial of steroids when I come back. My partner is rounding the next 4 days. 08/05/21: I dropped FiO2 to 65%. Continue to wean for sats >88%. 08/03/21: COntinue supportive measures. Thank you for documenting refusal of NIV at night. Will attempt to speak with patient about anxiety and why she doesn't want to wear the NIV via the language line. 08/02/21: Continue supportive care. pLaced new order for NIV at night. Please document if patient refuses 07/31/21: COntinue to wean FiO2 as tolerated. NIV at night. 07/30/21: Bipap QHS. Please document if patient is refusing this at night. Per nurse she has refused but RT documentation reflects that it was PRN and not needed. Prognosis is still guarded. 07/29/21: Continue to attempt to wean FiO2. Given fluctuations in oxygen requirements, ok with keeping in IMCU. consider using bipap therapy at night if patient will allow. Prognosis still remains guarded. Patient has been here 104 days. 07/21/21: Wean FiO2 as tolerated. Patient has never proned the entire 96 days she has been here. Will continue bipap at night. Hold on lasix again today. Prognosis remains guarded. Has finished steroids and all other experimental COVID drugs with minimal to no improvement. 07/20/21: Give patient a break off of bipap and attempt high flow nasal cannula today. Will feed. Suggest keeping bipap therapy at night. Monitor fluid balance and BP. May need more lasix. 07/19/21: This was not related to stopping steroids as hemodynamically she is stable. Her sats is very good on 90%, I dropped to 85 and will continue to wean. She speaks no macedonian and is very anxious. This adds to her work of breathing. COntinue to wean FiO2 as tolerated. Will give periodic breaks on bipap therapy. Guarded prognosis. 07/17/21: will stop steroids today. Hold on lasix given marginal blood pressure. Guarded prognosis. 07/15/21: Lasix today. Positive fluid balance all weekend based on I/O. Prone. Wean for sats >88% 07/12/21: Gave lasix 40mg IV again this am. Per charting yesterday was the first net negative day. Suggest PRN diuresis over the weekend as well. My partner is rounding but will likely see as needed. Continue to wean for sats >88% 07/11/21: Lasix 40mg IV this am. Attempt to prone if able. Attempt to achieve daily net negative state. Wean for sats >88%. Guarded prognosis. Will change prednisone to 5mg daily starting tomorrow. 07/09/21: Echo shows diastolic dysfunction. Will given an additional 40 of IV lasix today. Monitor daily and wean aggressively for sats >88% 07/08/21: Worsening CXR, Gave lasix yesterday and will give again today. Suggest checking echo, ekg. Prognosis is poor now with this change. We have seen COVID cause CAD with NV. 07/05/21: Will monitor over the weekend. Worst case scenario, may need to go back up to Prednisone 20 at least. Prone if able. Unsure why all of sudden oxygen requirement increasing. Will repeat CXR. 07/03/21: Down to 10 of prednisone. Will keep through the weekend and then drop to 5 on Thursday. PT/OT assessment if not done. Suggest maybe weaning flow now given FiO2 down to 50%. Prognosis is still guarded. 07/01/21: Will drop steroids to 10mg daily starting tomorrow. Wean for sats >88%. Prone. PT/OT should be seeing now that oxygen requirement is down more. 06/28/21: Continue to wean as tolerated. Will drop steroids down even further next week. Will see PRN over the weekend. 06/26/21: Will drop steroids down to 20 starting tomorrow. Prone. Continue to wean as tolerated. 06/24/21: Continue Pred, will drop to 20 daily tomorrow. Prone if able. Hopeful they can wean FiO2 more. May need to consider increasing flow for a while. 06/21/21: Continue pred at 40, will decrease likely Thursday/Thursday to 20 daily. Prone if able. Continue to wean as tolerated. Prognosis still remains guarded. 06/20/21: Will drop steroids down to 40 today. Proning. Continue to wean FiO2. 06/18/21: Wean Fio2 for sats >88%. Please encourage proning. Drop steroids down to 40 on . 06/14/21: Continue oral steroid therapy. Will do further weaning next week. Wean for sats >88% and prone as tolerated. Will see as needed over the weekend. 06/13/21: Will change to prednisone 60 daily starting tomorrow. Prone if able and wean for sats >88% 06/11/21: no new recs, will change to oral steroids tomorrow, continue to prone if able and wean for sats >88% 06/10/21: Will change to oral steroids on Thursday to begin prolonged taper 06/06/21: Continue to wean as tolerated, will drop steroids on tomorrow. 06/04/21: Clinically no change. Will drop steroids down the end of this week. 05/31/21: Clinically no change. Not eligible for LTACH. Encourage Proning. Will drop steroids down to 40 q8 05/29/21: No acute changes clinically. Still on HFNC but not really able to wean. Continue to encourage proning. Will drop steroids further on Thursday. 05/27/21: No improvement over the weekend but also no worsening. No other strategies to offer. Please continue to encourage patient to prone. I dropped steroids on yesterday. Will wean more later in the week. 05/24/21: No new recs again for today. Will see as needed over the weekend but follow chart peripherally for changes. 05/22/21: No new recs for today. Prognosis remains guarded. 05/21/21: Wean as tolerated. Prone if able. Guarded prognosis 05/20/21: COntinue current level of care. 05/17/21: Prone if possible. Wean FiO2 for sats >88%. Continue scheduled ativan. Prognosis is very very guarded. Unfunded so not a candidate for LTACH 05/16/21: Prone if willing. Wean FIO2 if patient will allow. Anxiety control. Prognosis still remains very guarded. 05/15/21: Not sure if MAR is accurate but may have only gotten one dose of scheduled anixolytic therapy. Continue proning as tolerated, and wean FiO2 and flow for sats >88%. Prognosi remains very very guarded to poor. 05/14/21: Will discontinue the buspar and make the ativan scheduled but will do q6 as oppose to q4 and attempt to leave parameters for nursing when not to give. If anxiety could be controlled, feel that patient could be weaned further. She has no funding so she is not a candidate for LTACH. Prone if possible. Guarded prognosis. This is her day. 05/13/21: Ordered buspar 10 BID to start with to help with anxiety. Please continue to wean FiO2 as tolerated. Will remind nurse that there is PRN ativan available. Continue higher doses of steroids. Prone if able. 05/12/21: Patient may need something longer acting for anxiety. Per chart has not gotten any ativan in days. Would be ok with either buspar or low dose klonopin bid. COntinue higher doses of steroids as patient seems to be responding. Prone if possible. 05/11/21: Continue high doses of steroids and continue to wean for sats >88%. Please encourage proning. 05/10/21: Will continue this dose of steroid at least through the weekend and assess for improvement. will speak with RT about aggressive weaning. Full dose anticoagulation continues. Very very guarded to poor prognosis. 05/09/21: Going to consider increasing steroids to 125q8, maybe as early as t omorrow. continue full dose anticoagulation. 05/08/21: Continue anticoagulation and steroids. Prone if possible. Anxiety control. No objection to CTA if this can happen. Very very guarded prognosis. 05/07/21: Spoke with IMS, not opposed to full dose anticoagulation. If patient goes back on NRB HFNC combo may need to consider restarting PPN again. Encourage proning. Guarded prognosis. 05/06/21: Continue to wean FiO2 and flow for sats >88%. Tolerating diet now so will stop PPN. Continue anxiety control. Continue IV steroids. Would not object to transfer to COVID floor if bed available. Not sure why she was titrated back up to 100% from 85 as all sats documented in the RT's notes were acceptable. Same for under vital signs as well. 05/03/21: Set back last night from yesterday. Continue bipap therapy for now and attempt HFNC maybe later this afternoon. Continue to use PRN ativan but may need to schedule as she likely took off mask from anxiety. Continue IV steroids. Hold on transfer to COVID Floor. 05/02/21: Continue to wean FiO2 as tolerated for sats >88%. Will continue bipap at night. Patient has no funding so not a candidate for LTACH. Given that she has been stable and not requiring the combo of HFNC and NRB, will consider moving to COVID floor. 05/01/21: Continue to wean FiO2 for sats >88%. A sat of 90 is more than acceptable and oxygen should not be increased for this unless patient desats and remains at a sat lower than 88. Bipap at night to give some form of relief and HFNC during the day. Currently on just this alone which is improvement. Ok with daily diuresis but must monitor renal function and BP closely. She was over diuresed last week and we ended up giving fluid back. Prognosis remains guarded. 04/30/21: Will start CLinimix today for nutritional support, without electrolytes. Check labs in am. Prone if able. Continue precedx for anxiety. Very very guarded prognosis. Attempting our best to not intubate. 04/29/21: Continue precedex. Continue IV solumedrol. Prone if able. Guarded prognosis. 04/28/21: Continue Precedex. Picc team attempting to place line now. Stable on Bipap. Ordered steroids IV solumedrol to start today. Prognosis remains guarded, still at very high risk for intubation. 04/27/21: Hypotension improving/improved. Hold on any further lasix dosing. Continue precedex to help with anxeity. later today please attempt HFNC with NRB if needed. Attempt to feed if possible. Steroids end today, please order solumedrol 40q8 to start tomorrow (04/28/21). guarded prognosis. 04/26/21: Hypotension today, most likely from precedex use and diuresis that I did the last several days. Will bolus again today. Consider midodrine if BP does not respond. 04/25/21: Lasix again today. Keep PRN ativan for now. Hold on precedex for now. Guarded prognosis. Labs ordered for tomorrow. 04/24/21: Lasix today. Will also start patient on low dose PRN ativan. If this does not help will then try precedex. Guarded prognosis. 04/23/21: Prone as tolerated. No lasix today. Continue decadron. Guarded prognosis. High risk for intubation and high mortality with intubation. 04/19/21: Prone as tolerated during the day and sleep prone at night. Continue IV remdesivir and steroids. Did get actemra. Guarded prognosis. 1. Daily net negative state 2. Prone if possible 3. IV remdesivir. 4. Should be a candidate for Actemra 5. IV steroids 6. Guarded Prognosis Subjective Date of service: 08/07/21 Principal diagnosis: Covid-19 Interval history: Currently on bipap. Asleep. Good sats. Objective Vital Signs - 12hr 08/06/21 08/06/21 08/06/21 22:44 23:00 23:04 Temperature Pulse Rate 105 H 103 H 102 H Respiratory 39 H 45 H 44 H Rate Blood Pressure 106/63 119/74 119/74 O2 Sat by Pulse 90 92 94 Oximetry 08/06/21 08/07/21 08/07/21 23:24 00:00 01:00 Temperature 97.9 F Pulse Rate 101 H 97 H Respiratory 45 H 50 H Rate Blood Pressure 117/66 114/74 O2 Sat by Pulse 95 88 90 Oximetry 08/07/21 08/07/21 08/07/21 01:10 01:41 02:00 Temperature Pulse Rate 95 H 93 H Respiratory 48 H 36 H Rate Blood Pressure 114/74 120/71 O2 Sat by Pulse 96 97 95 Oximetry 08/07/21 08/07/21 08/07/21 03:00 03:32 04:00 Temperature 97.5 F L Pulse Rate 90 87 Respiratory 31 H 29 H Rate Blood Pressure 117/69 118/68 O2 Sat by Pulse 95 94 Oximetry 08/07/21 08/07/21 08/07/21 05:00 06:00 07:43 Temperature 98.0 F Pulse Rate 83 81 Respiratory 31 H 31 H Rate Blood Pressure 117/70 112/69 O2 Sat by Pulse 99 100 Oximetry 08/07/21 08:54 Temperature Pulse Rate 79 Respiratory 29 H Rate Blood Pressure 118/76 O2 Sat by Pulse 100 Oximetry Constitutional: no acute distress, alert, other (on hiflo o2) Eyes: non-icteric ENT: oropharynx moist Neck: supple Effort: normal Ascultation: Bilateral: diminished breath sounds Cardiovascular: regular rate and rhythm Gastrointestinal: normoactive bowel sounds, soft, non-tender, non-distended Integumentary: normal Extremities: no cyanosis, no edema, pink and warm Neurologic: non-focal exam, pupils equal and round Psychiatric: mood appropriate, affect normal CBC and BMP: 07/23/21 04:35 07/29/21 04:40 ABG, PT/INR, D-dimer: ABG ABG pH 7.417 (7.320-7.450) 07/23/21 18:11 POC ABG pCO2 78.3 mmHg (32.0-48.0) H 07/23/21 18:11 ABG pCO2 85.7 mm Hg 07/22/21 12:05 POC ABG pO2 80.7 mmHg (83-108) L 07/23/21 18:11 ABG pO2 66.1 mm Hg (80.0-90.0) L 07/22/21 12:05 POC ABG HCO3 49.3 07/23/21 18:11 ABG O2 Saturation 96.7 (0-100) 07/23/21 18:11 PT/INR, D-dimer D-Dimer 638.35 ng/mlDDU (0-234) H 07/09/21 04:45 Abnormal lab findings: Abnormal Labs 04/16/21 04/16/21 04/16/21 11:42 11:42 11:42 WBC MCV MCH MCHC RDW 16.1 H Lymph % (Auto) 7.8 L [place] % (Auto) Eos % (Auto) Lymph # (Auto) 0.8 L [place] # (Auto) Eos # (Auto) Baso # (Auto) Seg Neutrophils % 87.7 H Seg Neuts % (Manual) Lymphocytes % (Manual) Seg Neutrophils # 8.5 H Seg Neutrophils # Man Lymphocytes # (Manual) D-Dimer 338.70 H ABG pH POC ABG pCO2 POC ABG pO2 ABG pO2 ABG HCO3 ABG O2 Saturation ABG Base Excess ABG Oxyhemoglobin ABG Sodium ABG Chloride ABG Glucose Oxyhemoglobin Carboxyhemoglobin Sodium Potassium Chloride Carbon Dioxide BUN Creatinine Glucose 194 H POC Glucose Hemoglobin A1c Magnesium Ferritin AST ALT Alkaline Phosphatase Lactate Dehydrogenase C-Reactive Protein Total Protein 8.4 H Albumin 3.8 L Arterial Blood Glucose Coronavirus (PCR) 04/16/21 04/16/21 04/17/21 11:42 11:42 03:50 WBC MCV MCH MCHC RDW 16.0 H Lymph % (Auto) 7.7 L [place] % (Auto) Eos % (Auto) Lymph # (Auto) 0.6 L [place] # (Auto) Eos # (Auto) Baso # (Auto) Seg Neutrophils % 89.8 H Seg Neuts % (Manual) Lymphocytes % (Manual) Seg Neutrophils # Seg Neutrophils # Man Lymphocytes # (Manual) D-Dimer ABG pH POC ABG pCO2 POC ABG pO2 ABG pO2 ABG HCO3 ABG O2 Saturation ABG Base Excess ABG Oxyhemoglobin ABG Sodium ABG Chloride ABG Glucose Oxyhemoglobin Carboxyhemoglobin Sodium Potassium Chloride Carbon Dioxide BUN Creatinine Glucose 195 H POC Glucose Hemoglobin A1c Magnesium Ferritin 254.3 H AST ALT Alkaline Phosphatase Lactate Dehydrogenase 359 H C-Reactive Protein 15.20 H Total Protein Albumin Arterial Blood Glucose Coronavirus (PCR) 04/17/21 04/17/21 04/17/21 03:50 08:26 08:26 WBC MCV MCH MCHC RDW Lymph % (Auto) [place] % (Auto) Eos % (Auto) Lymph # (Auto) [place] # (Auto) Eos # (Auto) Baso # (Auto) Seg Neutrophils % Seg Neuts % (Manual) Lymphocytes % (Manual) Seg Neutrophils # Seg Neutrophils # Man Lymphocytes # (Manual) D-Dimer 262.48 H ABG pH POC ABG pCO2 POC ABG pO2 ABG pO2 ABG HCO3 ABG O2 Saturation ABG Base Excess ABG Oxyhemoglobin ABG Sodium ABG Chloride ABG Glucose Oxyhemoglobin Carboxyhemoglobin Sodium Potassium Chloride Carbon Dioxide BUN 20 H Creatinine 0.5 L Glucose 249 H 225 H POC Glucose Hemoglobin A1c Magnesium Ferritin AST ALT Alkaline Phosphatase Lactate Dehydrogenase 338 H C-Reactive Protein 17.20 H Total Protein Albumin 3.2 L Arterial Blood Glucose Coronavirus (PCR) 04/17/21 04/17/21 04/17/21 08:26 15:04 Unknown WBC MCV MCH MCHC RDW Lymph % (Auto) [place] % (Auto) Eos % (Auto) Lymph # (Auto) [place] # (Auto) Eos # (Auto) Baso # (Auto) Seg Neutrophils % Seg Neuts % (Manual) Lymphocytes % (Manual) Seg Neutrophils # Seg Neutrophils # Man Lymphocytes # (Manual) D-Dimer ABG pH POC ABG pCO2 POC ABG pO2 ABG pO2 ABG HCO3 ABG O2 Saturation ABG Base Excess ABG Oxyhemoglobin ABG Sodium ABG Chloride ABG Glucose Oxyhemoglobin Carboxyhemoglobin Sodium Potassium Chloride Carbon Dioxide BUN 20 H Creatinine 0.5 L Glucose 246 H POC Glucose Hemoglobin A1c Magnesium Ferritin 392.0 H AST ALT Alkaline Phosphatase Lactate Dehydrogenase C-Reactive Protein Total Protein 8.3 H Albumin 3.1 L Arterial Blood Glucose Coronavirus (PCR) Positive A 04/18/21 04/18/21 04/18/21 05:06 05:06 07:36 WBC 11.6 H MCV MCH MCHC RDW 16.1 H Lymph % (Auto) [place] % (Auto) Eos % (Auto) Lymph # (Auto) [place] # (Auto) Eos # (Auto) Baso # (Auto) Seg Neutrophils % Seg Neuts % (Manual) Lymphocytes % (Manual) Seg Neutrophils # Seg Neutrophils # Man Lymphocytes # (Manual) D-Dimer ABG pH POC ABG pCO2 POC ABG pO2 ABG pO2 ABG HCO3 ABG O2 Saturation ABG Base Excess ABG Oxyhemoglobin ABG Sodium ABG Chloride ABG Glucose Oxyhemoglobin Carboxyhemoglobin Sodium Potassium 5.2 H Chloride Carbon Dioxide BUN 22 H Creatinine 0.5 L Glucose 315 H POC Glucose Hemoglobin A1c 8.5 H Magnesium Ferritin AST ALT Alkaline Phosphatase Lactate Dehydrogenase C-Reactive Protein Total Protein Albumin 3.3 L Arterial Blood Glucose Coronavirus (PCR) 04/18/21 04/18/21 04/18/21 11:59 16:43 23:24 WBC MCV MCH MCHC RDW Lymph % (Auto) [place] % (Auto) Eos % (Auto) Lymph # (Auto) [place] # (Auto) Eos # (Auto) Baso # (Auto) Seg Neutrophils % Seg Neuts % (Manual) Lymphocytes % (Manual) Seg Neutrophils # Seg Neutrophils # Man Lymphocytes # (Manual) D-Dimer ABG pH POC ABG pCO2 POC ABG pO2 ABG pO2 ABG HCO3 ABG O2 Saturation ABG Base Excess ABG Oxyhemoglobin ABG Sodium ABG Chloride ABG Glucose Oxyhemoglobin Carboxyhemoglobin Sodium Potassium Chloride Carbon Dioxide BUN Creatinine Glucose POC Glucose 284 H 273 H 290 H Hemoglobin A1c Magnesium Ferritin AST ALT Alkaline Phosphatase Lactate Dehydrogenase C-Reactive Protein Total Protein Albumin Arterial Blood Glucose Coronavirus (PCR) 04/19/21 04/19/21 04/19/21 04:19 04:19 08:10 WBC MCV MCH MCHC RDW 15.7 H Lymph % (Auto) [place] % (Auto) Eos % (Auto) Lymph # (Auto) [place] # (Auto) Eos # (Auto) Baso # (Auto) Seg Neutrophils % Seg Neuts % (Manual) Lymphocytes % (Manual) Seg Neutrophils # Seg Neutrophils # Man Lymphocytes # (Manual) D-Dimer ABG pH POC ABG pCO2 POC ABG pO2 ABG pO2 ABG HCO3 ABG O2 Saturation ABG Base Excess ABG Oxyhemoglobin ABG Sodium ABG Chloride ABG Glucose Oxyhemoglobin Carboxyhemoglobin Sodium Potassium Chloride Carbon Dioxide BUN 27 H Creatinine 0.4 L Glucose 184 H POC Glucose 194 H Hemoglobin A1c Magnesium Ferritin AST ALT Alkaline Phosphatase Lactate Dehydrogenase C-Reactive Protein Total Protein Albumin 3.1 L Arterial Blood Glucose Coronavirus (PCR) 04/19/21 04/19/21 04/19/21 11:38 16:25 22:04 WBC MCV MCH MCHC RDW Lymph % (Auto) [place] % (Auto) Eos % (Auto) Lymph # (Auto) [place] # (Auto) Eos # (Auto) Baso # (Auto) Seg Neutrophils % Seg Neuts % (Manual) Lymphocytes % (Manual) Seg Neutrophils # Seg Neutrophils # Man Lymphocytes # (Manual) D-Dimer ABG pH POC ABG pCO2 POC ABG pO2 ABG pO2 ABG HCO3 ABG O2 Saturation ABG Base Excess ABG Oxyhemoglobin ABG Sodium ABG Chloride ABG Glucose Oxyhemoglobin Carboxyhemoglobin Sodium Potassium Chloride Carbon Dioxide BUN Creatinine Glucose POC Glucose 224 H 297 H 251 H Hemoglobin A1c Magnesium Ferritin AST ALT Alkaline Phosphatase Lactate Dehydrogenase C-Reactive Protein Total Protein Albumin Arterial Blood Glucose Coronavirus (PCR) 04/20/21 04/20/21 04/20/21 05:28 08:43 16:21 WBC MCV MCH MCHC RDW Lymph % (Auto) [place] % (Auto) Eos % (Auto) Lymph # (Auto) [place] # (Auto) Eos # (Auto) Baso # (Auto) Seg Neutrophils % Seg Neuts % (Manual) Lymphocytes % (Manual) Seg Neutrophils # Seg Neutrophils # Man Lymphocytes # (Manual) D-Dimer ABG pH POC ABG pCO2 POC ABG pO2 ABG pO2 ABG HCO3 ABG O2 Saturation ABG Base Excess ABG Oxyhemoglobin ABG Sodium ABG Chloride ABG Glucose Oxyhemoglobin Carboxyhemoglobin Sodium Potassium Chloride Carbon Dioxide BUN 27 H Creatinine Glucose 192 H POC Glucose 173 H 253 H Hemoglobin A1c Magnesium Ferritin AST ALT Alkaline Phosphatase Lactate Dehydrogenase C-Reactive Protein Total Protein Albumin 3.0 L Arterial Blood Glucose Coronavirus (PCR) 04/21/21 04/21/21 04/21/21 07:58 12:05 16:08 WBC MCV MCH MCHC RDW Lymph % (Auto) [place] % (Auto) Eos % (Auto) Lymph # (Auto) [place] # (Auto) Eos # (Auto) Baso # (Auto) Seg Neutrophils % Seg Neuts % (Manual) Lymphocytes % (Manual) Seg Neutrophils # Seg Neutrophils # Man Lymphocytes # (Manual) D-Dimer ABG pH POC ABG pCO2 POC ABG pO2 ABG pO2 ABG HCO3 ABG O2 Saturation ABG Base Excess ABG Oxyhemoglobin ABG Sodium ABG Chloride ABG Glucose Oxyhemoglobin Carboxyhemoglobin Sodium Potassium Chloride Carbon Dioxide BUN Creatinine Glucose POC Glucose 140 H 252 H 214 H Hemoglobin A1c Magnesium Ferritin AST ALT Alkaline Phosphatase Lactate Dehydrogenase C-Reactive Protein Total Protein Albumin Arterial Blood Glucose Coronavirus (PCR) 04/21/21 04/22/21 04/22/21 21:42 08:37 12:01 WBC MCV MCH MCHC RDW Lymph % (Auto) [place] % (Auto) Eos % (Auto) Lymph # (Auto) [place] # (Auto) Eos # (Auto) Baso # (Auto) Seg Neutrophils % Seg Neuts % (Manual) Lymphocytes % (Manual) Seg Neutrophils # Seg Neutrophils # Man Lymphocytes # (Manual) D-Dimer ABG pH 7.457 H POC ABG pCO2 POC ABG pO2 49.4 L ABG pO2 ABG HCO3 ABG O2 Saturation ABG Base Excess ABG Oxyhemoglobin 85.6 L ABG Sodium ABG Chloride ABG Glucose 121 H Oxyhemoglobin Carboxyhemoglobin 0.3 L Sodium Potassium Chloride Carbon Dioxide BUN Creatinine Glucose POC Glucose 162 H 227 H Hemoglobin A1c Magnesium Ferritin AST ALT Alkaline Phosphatase Lactate Dehydrogenase C-Reactive Protein Total Protein Albumin Arterial Blood Glucose 121 H Coronavirus (PCR) 04/22/21 04/22/21 04/23/21 16:26 22:23 04:52 WBC MCV MCH MCHC RDW 15.7 H Lymph % (Auto) [place] % (Auto) Eos % (Auto) Lymph # (Auto) [place] # (Auto) Eos # (Auto) Baso # (Auto) Seg Neutrophils % Seg Neuts % (Manual) Lymphocytes % (Manual) Seg Neutrophils # Seg Neutrophils # Man Lymphocytes # (Manual) D-Dimer ABG pH POC ABG pCO2 POC ABG pO2 ABG pO2 ABG HCO3 ABG O2 Saturation ABG Base Excess ABG Oxyhemoglobin ABG Sodium ABG Chloride ABG Glucose Oxyhemoglobin Carboxyhemoglobin Sodium Potassium Chloride Carbon Dioxide BUN Creatinine Glucose POC Glucose 200 H 136 H Hemoglobin A1c Magnesium Ferritin AST ALT Alkaline Phosphatase Lactate Dehydrogenase C-Reactive Protein Total Protein Albumin Arterial Blood Glucose Coronavirus (PCR) 04/23/21 04/23/21 04/23/21 04:52 12:06 17:41 WBC MCV MCH MCHC RDW Lymph % (Auto) [place] % (Auto) Eos % (Auto) Lymph # (Auto) [place] # (Auto) Eos # (Auto) Baso # (Auto) Seg Neutrophils % Seg Neuts % (Manual) Lymphocytes % (Manual) Seg Neutrophils # Seg Neutrophils # Man Lymphocytes # (Manual) D-Dimer ABG pH POC ABG pCO2 POC ABG pO2 ABG pO2 ABG HCO3 ABG O2 Saturation ABG Base Excess ABG Oxyhemoglobin ABG Sodium ABG Chloride ABG Glucose Oxyhemoglobin Carboxyhemoglobin Sodium 136 L Potassium Chloride 97.7 L Carbon Dioxide BUN 23 H Creatinine Glucose 101 H POC Glucose 202 H 169 H Hemoglobin A1c Magnesium Ferritin AST 46 H ALT Alkaline Phosphatase Lactate Dehydrogenase C-Reactive Protein Total Protein Albumin 3.3 L Arterial Blood Glucose Coronavirus (PCR) 04/23/21 04/24/21 04/24/21 23:08 05:17 08:38 WBC MCV MCH MCHC RDW Lymph % (Auto) [place] % (Auto) Eos % (Auto) Lymph # (Auto) [place] # (Auto) Eos # (Auto) Baso # (Auto) Seg Neutrophils % Seg Neuts % (Manual) Lymphocytes % (Manual) Seg Neutrophils # Seg Neutrophils # Man Lymphocytes # (Manual) D-Dimer ABG pH POC ABG pCO2 POC ABG pO2 ABG pO2 ABG HCO3 ABG O2 Saturation ABG Base Excess ABG Oxyhemoglobin ABG Sodium ABG Chloride ABG Glucose Oxyhemoglobin Carboxyhemoglobin Sodium Potassium Chloride Carbon Dioxide BUN Creatinine Glucose POC Glucose 111 H 108 H 126 H Hemoglobin A1c Magnesium Ferritin AST ALT Alkaline Phosphatase Lactate Dehydrogenase C-Reactive Protein Total Protein Albumin Arterial Blood Glucose Coronavirus (PCR) 04/24/21 04/24/21 04/24/21 11:54 17:57 21:23 WBC MCV MCH MCHC RDW Lymph % (Auto) [place] % (Auto) Eos % (Auto) Lymph # (Auto) [place] # (Auto) Eos # (Auto) Baso # (Auto) Seg Neutrophils % Seg Neuts % (Manual) Lymphocytes % (Manual) Seg Neutrophils # Seg Neutrophils # Man Lymphocytes # (Manual) D-Dimer ABG pH POC ABG pCO2 POC ABG pO2 ABG pO2 ABG HCO3 ABG O2 Saturation ABG Base Excess ABG Oxyhemoglobin ABG Sodium ABG Chloride ABG Glucose Oxyhemoglobin Carboxyhemoglobin Sodium Potassium Chloride Carbon Dioxide BUN Creatinine Glucose POC Glucose 147 H 177 H 138 H Hemoglobin A1c Magnesium Ferritin AST ALT Alkaline Phosphatase Lactate Dehydrogenase C-Reactive Protein Total Protein Albumin Arterial Blood Glucose Coronavirus (PCR) 04/25/21 04/25/21 04/25/21 07:06 11:23 15:43 WBC MCV MCH MCHC RDW Lymph % (Auto) [place] % (Auto) Eos % (Auto) Lymph # (Auto) [place] # (Auto) Eos # (Auto) Baso # (Auto) Seg Neutrophils % Seg Neuts % (Manual) Lymphocytes % (Manual) Seg Neutrophils # Seg Neutrophils # Man Lymphocytes # (Manual) D-Dimer ABG pH POC ABG pCO2 POC ABG pO2 ABG pO2 ABG HCO3 ABG O2 Saturation ABG Base Excess ABG Oxyhemoglobin ABG Sodium ABG Chloride ABG Glucose Oxyhemoglobin Carboxyhemoglobin Sodium Potassium Chloride Carbon Dioxide BUN Creatinine Glucose POC Glucose 147 H 169 H 227 H Hemoglobin A1c Magnesium Ferritin AST ALT Alkaline Phosphatase Lactate Dehydrogenase C-Reactive Protein Total Protein Albumin Arterial Blood Glucose Coronavirus (PCR) 04/25/21 04/26/21 04/26/21 21:22 02:45 05:15 WBC MCV MCH MCHC RDW Lymph % (Auto) [place] % (Auto) Eos % (Auto) Lymph # (Auto) [place] # (Auto) Eos # (Auto) Baso # (Auto) Seg Neutrophils % Seg Neuts % (Manual) Lymphocytes % (Manual) Seg Neutrophils # Seg Neutrophils # Man Lymphocytes # (Manual) D-Dimer ABG pH POC ABG pCO2 POC ABG pO2 70.7 L ABG pO2 ABG HCO3 ABG O2 Saturation ABG Base Excess ABG Oxyhemoglobin 93.0 L ABG Sodium 132.7 L ABG Chloride ABG Glucose 115 H Oxyhemoglobin Carboxyhemoglobin Sodium Potassium Chloride 95.8 L Carbon Dioxide 32 H BUN 20 H Creatinine Glucose 102 H POC Glucose 196 H Hemoglobin A1c Magnesium Ferritin AST ALT Alkaline Phosphatase Lactate Dehydrogenase C-Reactive Protein Total Protein Albumin Arterial Blood Glucose 115 H Coronavirus (PCR) 04/26/21 04/26/21 04/26/21 11:49 16:09 21:07 WBC MCV MCH MCHC RDW Lymph % (Auto) [place] % (Auto) Eos % (Auto) Lymph # (Auto) [place] # (Auto) Eos # (Auto) Baso # (Auto) Seg Neutrophils % Seg Neuts % (Manual) Lymphocytes % (Manual) Seg Neutrophils # Seg Neutrophils # Man Lymphocytes # (Manual) D-Dimer ABG pH POC ABG pCO2 POC ABG pO2 ABG pO2 ABG HCO3 ABG O2 Saturation ABG Base Excess ABG Oxyhemoglobin ABG Sodium ABG Chloride ABG Glucose Oxyhemoglobin Carboxyhemoglobin Sodium Potassium Chloride Carbon Dioxide BUN Creatinine Glucose POC Glucose 114 H 188 H 136 H Hemoglobin A1c Magnesium Ferritin AST ALT Alkaline Phosphatase Lactate Dehydrogenase C-Reactive Protein Total Protein Albumin Arterial Blood Glucose Coronavirus (PCR) 04/27/21 04/27/21 04/28/21 17:34 22:12 08:26 WBC MCV MCH MCHC RDW Lymph % (Auto) [place] % (Auto) Eos % (Auto) Lymph # (Auto) [place] # (Auto) Eos # (Auto) Baso # (Auto) Seg Neutrophils % Seg Neuts % (Manual) Lymphocytes % (Manual) Seg Neutrophils # Seg Neutrophils # Man Lymphocytes # (Manual) D-Dimer ABG pH POC ABG pCO2 POC ABG pO2 ABG pO2 ABG HCO3 ABG O2 Saturation ABG Base Excess ABG Oxyhemoglobin ABG Sodium ABG Chloride ABG Glucose Oxyhemoglobin Carboxyhemoglobin Sodium Potassium Chloride Carbon Dioxide BUN Creatinine Glucose POC Glucose 128 H 159 H 69 L Hemoglobin A1c Magnesium Ferritin AST ALT Alkaline Phosphatase Lactate Dehydrogenase C-Reactive Protein Total Protein Albumin Arterial Blood Glucose Coronavirus (PCR) 04/28/21 04/28/21 04/29/21 12:22 21:11 06:05 WBC MCV MCH MCHC RDW Lymph % (Auto) [place] % (Auto) Eos % (Auto) Lymph # (Auto) [place] # (Auto) Eos # (Auto) Baso # (Auto) Seg Neutrophils % Seg Neuts % (Manual) Lymphocytes % (Manual) Seg Neutrophils # Seg Neutrophils # Man Lymphocytes # (Manual) D-Dimer ABG pH POC ABG pCO2 POC ABG pO2 ABG pO2 ABG HCO3 ABG O2 Saturation ABG Base Excess ABG Oxyhemoglobin ABG Sodium ABG Chloride ABG Glucose Oxyhemoglobin Carboxyhemoglobin Sodium 132 L Potassium Chloride 94.4 L Carbon Dioxide BUN Creatinine 0.2 L D Glucose 140 H POC Glucose 141 H 171 H Hemoglobin A1c Magnesium Ferritin AST ALT Alkaline Phosphatase Lactate Dehydrogenase C-Reactive Protein Total Protein Albumin Arterial Blood Glucose Coronavirus (PCR) 04/29/21 04/29/21 04/29/21 06:05 07:24 11:36 WBC MCV MCH MCHC 35 H RDW 15.9 H Lymph % (Auto) [place] % (Auto) Eos % (Auto) Lymph # (Auto) [place] # (Auto) Eos # (Auto) Baso # (Auto) Seg Neutrophils % Seg Neuts % (Manual) Lymphocytes % (Manual) Seg Neutrophils # Seg Neutrophils # Man Lymphocytes # (Manual) D-Dimer ABG pH POC ABG pCO2 POC ABG pO2 ABG pO2 ABG HCO3 ABG O2 Saturation ABG Base Excess ABG Oxyhemoglobin ABG Sodium ABG Chloride ABG Glucose Oxyhemoglobin Carboxyhemoglobin Sodium Potassium Chloride Carbon Dioxide BUN Creatinine Glucose POC Glucose 141 H 220 H Hemoglobin A1c Magnesium Ferritin AST ALT Alkaline Phosphatase Lactate Dehydrogenase C-Reactive Protein Total Protein Albumin Arterial Blood Glucose Coronavirus (PCR) 04/29/21 04/29/21 04/29/21 14:23 15:30 17:06 WBC MCV MCH MCHC RDW Lymph % (Auto) [place] % (Auto) Eos % (Auto) Lymph # (Auto) [place] # (Auto) Eos # (Auto) Baso # (Auto) Seg Neutrophils % Seg Neuts % (Manual) Lymphocytes % (Manual) Seg Neutrophils # Seg Neutrophils # Man Lymphocytes # (Manual) D-Dimer ABG pH POC ABG pCO2 POC ABG pO2 ABG pO2 52.6 L ABG HCO3 ABG O2 Saturation 86.4 L ABG Base Excess ABG Oxyhemoglobin ABG Sodium ABG Chloride ABG Glucose Oxyhemoglobin 84.6 L Carboxyhemoglobin Sodium Potassium Chloride Carbon Dioxide BUN Creatinine Glucose POC Glucose 173 H 158 H Hemoglobin A1c Magnesium Ferritin AST ALT Alkaline Phosphatase Lactate Dehydrogenase C-Reactive Protein Total Protein Albumin Arterial Blood Glucose Coronavirus (PCR) 04/29/21 04/30/21 04/30/21 21:27 07:16 08:00 WBC MCV MCH MCHC RDW 16.1 H Lymph % (Auto) [place] % (Auto) Eos % (Auto) Lymph # (Auto) [place] # (Auto) Eos # (Auto) Baso # (Auto) Seg Neutrophils % Seg Neuts % (Manual) Lymphocytes % (Manual) Seg Neutrophils # Seg Neutrophils # Man Lymphocytes # (Manual) D-Dimer ABG pH POC ABG pCO2 POC ABG pO2 ABG pO2 ABG HCO3 ABG O2 Saturation ABG Base Excess ABG Oxyhemoglobin ABG Sodium ABG Chloride ABG Glucose Oxyhemoglobin Carboxyhemoglobin Sodium Potassium Chloride Carbon Dioxide BUN Creatinine Glucose POC Glucose 244 H 175 H Hemoglobin A1c Magnesium Ferritin AST ALT Alkaline Phosphatase Lactate Dehydrogenase C-Reactive Protein Total Protein Albumin Arterial Blood Glucose Coronavirus (PCR) 04/30/21 04/30/21 04/30/21 08:00 08:00 11:03 WBC MCV MCH MCHC RDW Lymph % (Auto) [place] % (Auto) Eos % (Auto) Lymph # (Auto) [place] # (Auto) Eos # (Auto) Baso # (Auto) Seg Neutrophils % Seg Neuts % (Manual) Lymphocytes % (Manual) Seg Neutrophils # Seg Neutrophils # Man Lymphocytes # (Manual) D-Dimer 1796.87 H ABG pH POC ABG pCO2 POC ABG pO2 ABG pO2 ABG HCO3 ABG O2 Saturation ABG Base Excess ABG Oxyhemoglobin ABG Sodium ABG Chloride ABG Glucose Oxyhemoglobin Carboxyhemoglobin Sodium 135 L Potassium Chloride 96.3 L Carbon Dioxide BUN Creatinine 0.2 L Glucose 153 H POC Glucose 183 H Hemoglobin A1c Magnesium Ferritin AST 41 H ALT 76 H Alkaline Phosphatase 160 H Lactate Dehydrogenase 522 H C-Reactive Protein Total Protein 6.1 L Albumin 3.1 L Arterial Blood Glucose Coronavirus (PCR) 04/30/21 04/30/21 05/01/21 17:04 22:17 05:39 WBC MCV MCH MCHC RDW Lymph % (Auto) [place] % (Auto) Eos % (Auto) Lymph # (Auto) [place] # (Auto) Eos # (Auto) Baso # (Auto) Seg Neutrophils % Seg Neuts % (Manual) Lymphocytes % (Manual) Seg Neutrophils # Seg Neutrophils # Man Lymphocytes # (Manual) D-Dimer ABG pH POC ABG pCO2 POC ABG pO2 ABG pO2 ABG HCO3 ABG O2 Saturation ABG Base Excess ABG Oxyhemoglobin ABG Sodium ABG Chloride ABG Glucose Oxyhemoglobin Carboxyhemoglobin Sodium 133 L Potassium Chloride 92.1 L Carbon Dioxide BUN 24 H Creatinine 0.4 L D Glucose 269 H POC Glucose 167 H 208 H Hemoglobin A1c Magnesium Ferritin AST ALT 66 H Alkaline Phosphatase 142 H Lactate Dehydrogenase C-Reactive Protein Total Protein Albumin 3.2 L Arterial Blood Glucose Coronavirus (PCR) 05/01/21 05/01/21 05/01/21 05:39 05:39 07:45 WBC MCV MCH MCHC RDW 16.0 H Lymph % (Auto) [place] % (Auto) Eos % (Auto) Lymph # (Auto) [place] # (Auto) Eos # (Auto) Baso # (Auto) Seg Neutrophils % Seg Neuts % (Manual) Lymphocytes % (Manual) Seg Neutrophils # Seg Neutrophils # Man Lymphocytes # (Manual) D-Dimer 3984.95 H ABG pH POC ABG pCO2 POC ABG pO2 ABG pO2 ABG HCO3 ABG O2 Saturation ABG Base Excess ABG Oxyhemoglobin ABG Sodium ABG Chloride ABG Glucose Oxyhemoglobin Carboxyhemoglobin Sodium Potassium Chloride Carbon Dioxide BUN Creatinine Glucose POC Glucose 229 H Hemoglobin A1c Magnesium Ferritin AST ALT Alkaline Phosphatase Lactate Dehydrogenase C-Reactive Protein Total Protein Albumin Arterial Blood Glucose Coronavirus (PCR) 05/01/21 05/01/21 05/01/21 12:10 15:46 21:06 WBC MCV MCH MCHC RDW Lymph % (Auto) [place] % (Auto) Eos % (Auto) Lymph # (Auto) [place] # (Auto) Eos # (Auto) Baso # (Auto) Seg Neutrophils % Seg Neuts % (Manual) Lymphocytes % (Manual) Seg Neutrophils # Seg Neutrophils # Man Lymphocytes # (Manual) D-Dimer ABG pH POC ABG pCO2 POC ABG pO2 ABG pO2 ABG HCO3 ABG O2 Saturation ABG Base Excess ABG Oxyhemoglobin ABG Sodium ABG Chloride ABG Glucose Oxyhemoglobin Carboxyhemoglobin Sodium Potassium Chloride Carbon Dioxide BUN Creatinine Glucose POC Glucose 296 H 279 H 232 H Hemoglobin A1c Magnesium Ferritin AST ALT Alkaline Phosphatase Lactate Dehydrogenase C-Reactive Protein Total Protein Albumin Arterial Blood Glucose Coronavirus (PCR) 05/02/21 05/02/21 05/02/21 04:55 04:55 04:55 WBC MCV MCH MCHC RDW 16.1 H Lymph % (Auto) [place] % (Auto) Eos % (Auto) Lymph # (Auto) [place] # (Auto) Eos # (Auto) Baso # (Auto) Seg Neutrophils % Seg Neuts % (Manual) Lymphocytes % (Manual) Seg Neutrophils # Seg Neutrophils # Man Lymphocytes # (Manual) D-Dimer 1401.08 H ABG pH POC ABG pCO2 POC ABG pO2 ABG pO2 ABG HCO3 ABG O2 Saturation ABG Base Excess ABG Oxyhemoglobin ABG Sodium ABG Chloride ABG Glucose Oxyhemoglobin Carboxyhemoglobin Sodium 131 L Potassium Chloride 95.5 L Carbon Dioxide BUN 20 H Creatinine 0.3 L Glucose 288 H POC Glucose Hemoglobin A1c Magnesium Ferritin AST ALT Alkaline Phosphatase Lactate Dehydrogenase C-Reactive Protein Total Protein 6.0 L Albumin 3.1 L Arterial Blood Glucose Coronavirus (PCR) 05/02/21 05/02/21 05/02/21 07:53 11:45 15:25 WBC MCV MCH MCHC RDW Lymph % (Auto) [place] % (Auto) Eos % (Auto) Lymph # (Auto) [place] # (Auto) Eos # (Auto) Baso # (Auto) Seg Neutrophils % Seg Neuts % (Manual) Lymphocytes % (Manual) Seg Neutrophils # Seg Neutrophils # Man Lymphocytes # (Manual) D-Dimer ABG pH POC ABG pCO2 POC ABG pO2 ABG pO2 ABG HCO3 ABG O2 Saturation ABG Base Excess ABG Oxyhemoglobin ABG Sodium ABG Chloride ABG Glucose Oxyhemoglobin Carboxyhemoglobin Sodium Potassium Chloride Carbon Dioxide BUN Creatinine Glucose POC Glucose 180 H 228 H 275 H Hemoglobin A1c Magnesium Ferritin AST ALT Alkaline Phosphatase Lactate Dehydrogenase C-Reactive Protein Total Protein Albumin Arterial Blood Glucose Coronavirus (PCR) 05/02/21 05/03/21 05/03/21 22:56 04:30 04:49 WBC MCV MCH MCHC RDW Lymph % (Auto) [place] % (Auto) Eos % (Auto) Lymph # (Auto) [place] # (Auto) Eos # (Auto) Baso # (Auto) Seg Neutrophils % Seg Neuts % (Manual) Lymphocytes % (Manual) Seg Neutrophils # Seg Neutrophils # Man Lymphocytes # (Manual) D-Dimer ABG pH 7.229 L POC ABG pCO2 POC ABG pO2 65.3 L ABG pO2 ABG HCO3 ABG O2 Saturation ABG Base Excess ABG Oxyhemoglobin 87.8 L ABG Sodium 133.0 L ABG Chloride 97.0 L ABG Glucose 403 H Oxyhemoglobin Carboxyhemoglobin Sodium 130 L Potassium Chloride 94.9 L Carbon Dioxide BUN 20 H Creatinine 0.5 L D Glucose 359 H POC Glucose 293 H Hemoglobin A1c Magnesium Ferritin AST 54 H ALT 75 H Alkaline Phosphatase 138 H Lactate Dehydrogenase C-Reactive Protein Total Protein Albumin 3.6 L Arterial Blood Glucose 403 H Coronavirus (PCR) 05/03/21 05/03/21 05/03/21 05:27 11:26 17:57 WBC MCV MCH MCHC RDW Lymph % (Auto) [place] % (Auto) Eos % (Auto) Lymph # (Auto) [place] # (Auto) Eos # (Auto) Baso # (Auto) Seg Neutrophils % Seg Neuts % (Manual) Lymphocytes % (Manual) Seg Neutrophils # Seg Neutrophils # Man Lymphocytes # (Manual) D-Dimer ABG pH POC ABG pCO2 POC ABG pO2 ABG pO2 ABG HCO3 ABG O2 Saturation ABG Base Excess ABG Oxyhemoglobin ABG Sodium ABG Chloride ABG Glucose Oxyhemoglobin Carboxyhemoglobin Sodium Potassium Chloride Carbon Dioxide BUN Creatinine Glucose POC Glucose 361 H 297 H 226 H Hemoglobin A1c Magnesium Ferritin AST ALT Alkaline Phosphatase Lactate Dehydrogenase C-Reactive Protein Total Protein Albumin Arterial Blood Glucose Coronavirus (PCR) 05/03/21 05/04/21 05/04/21 23:12 05:12 07:30 WBC MCV MCH MCHC RDW Lymph % (Auto) [place] % (Auto) Eos % (Auto) Lymph # (Auto) [place] # (Auto) Eos # (Auto) Baso # (Auto) Seg Neutrophils % Seg Neuts % (Manual) Lymphocytes % (Manual) Seg Neutrophils # Seg Neutrophils # Man Lymphocytes # (Manual) D-Dimer ABG pH POC ABG pCO2 POC ABG pO2 ABG pO2 ABG HCO3 ABG O2 Saturation ABG Base Excess ABG Oxyhemoglobin ABG Sodium ABG Chloride ABG Glucose Oxyhemoglobin Carboxyhemoglobin Sodium Potassium Chloride Carbon Dioxide BUN Creatinine Glucose POC Glucose 282 H 285 H 254 H Hemoglobin A1c Magnesium Ferritin AST ALT Alkaline Phosphatase Lactate Dehydrogenase C-Reactive Protein Total Protein Albumin Arterial Blood Glucose Coronavirus (PCR) 05/04/21 05/04/21 05/04/21 08:58 11:45 16:07 WBC MCV MCH MCHC RDW Lymph % (Auto) [place] % (Auto) Eos % (Auto) Lymph # (Auto) [place] # (Auto) Eos # (Auto) Baso # (Auto) Seg Neutrophils % Seg Neuts % (Manual) Lymphocytes % (Manual) Seg Neutrophils # Seg Neutrophils # Man Lymphocytes # (Manual) D-Dimer ABG pH POC ABG pCO2 POC ABG pO2 ABG pO2 ABG HCO3 ABG O2 Saturation ABG Base Excess ABG Oxyhemoglobin ABG Sodium ABG Chloride ABG Glucose Oxyhemoglobin Carboxyhemoglobin Sodium 134 L Potassium Chloride Carbon Dioxide BUN 20 H Creatinine 0.3 L Glucose 267 H POC Glucose 244 H 297 H Hemoglobin A1c Magnesium Ferritin AST ALT Alkaline Phosphatase Lactate Dehydrogenase C-Reactive Protein Total Protein 6.0 L Albumin 3.2 L Arterial Blood Glucose Coronavirus (PCR) 05/04/21 05/05/21 05/05/21 23:32 05:00 05:13 WBC MCV MCH MCHC RDW Lymph % (Auto) [place] % (Auto) Eos % (Auto) Lymph # (Auto) [place] # (Auto) Eos # (Auto) Baso # (Auto) Seg Neutrophils % Seg Neuts % (Manual) Lymphocytes % (Manual) Seg Neutrophils # Seg Neutrophils # Man Lymphocytes # (Manual) D-Dimer ABG pH POC ABG pCO2 POC ABG pO2 ABG pO2 ABG HCO3 ABG O2 Saturation ABG Base Excess ABG Oxyhemoglobin ABG Sodium ABG Chloride ABG Glucose Oxyhemoglobin Carboxyhemoglobin Sodium 132 L Potassium Chloride 96.4 L Carbon Dioxide BUN 22 H Creatinine 0.3 L Glucose 228 H POC Glucose 154 H 260 H Hemoglobin A1c Magnesium Ferritin AST ALT 67 H Alkaline Phosphatase Lactate Dehydrogenase C-Reactive Protein Total Protein 6.1 L Albumin 3.2 L Arterial Blood Glucose Coronavirus (PCR) 05/05/21 05/05/21 05/05/21 11:32 17:49 23:07 WBC MCV MCH MCHC RDW Lymph % (Auto) [place] % (Auto) Eos % (Auto) Lymph # (Auto) [place] # (Auto) Eos # (Auto) Baso # (Auto) Seg Neutrophils % Seg Neuts % (Manual) Lymphocytes % (Manual) Seg Neutrophils # Seg Neutrophils # Man Lymphocytes # (Manual) D-Dimer ABG pH POC ABG pCO2 POC ABG pO2 ABG pO2 ABG HCO3 ABG O2 Saturation ABG Base Excess ABG Oxyhemoglobin ABG Sodium ABG Chloride ABG Glucose Oxyhemoglobin Carboxyhemoglobin Sodium Potassium Chloride Carbon Dioxide BUN Creatinine Glucose POC Glucose 279 H 308 H 213 H Hemoglobin A1c Magnesium Ferritin AST ALT Alkaline Phosphatase Lactate Dehydrogenase C-Reactive Protein Total Protein Albumin Arterial Blood Glucose Coronavirus (PCR) 05/06/21 05/06/21 05/06/21 05:00 05:00 05:20 WBC MCV MCH MCHC RDW 16.8 H Lymph % (Auto) [place] % (Auto) Eos % (Auto) Lymph # (Auto) [place] # (Auto) Eos # (Auto) Baso # (Auto) Seg Neutrophils % Seg Neuts % (Manual) 99.0 H Lymphocytes % (Manual) Seg Neutrophils # Seg Neutrophils # Man 10.9 H Lymphocytes # (Manual) 0.0 L D-Dimer ABG pH POC ABG pCO2 POC ABG pO2 ABG pO2 ABG HCO3 ABG O2 Saturation ABG Base Excess ABG Oxyhemoglobin ABG Sodium ABG Chloride ABG Glucose Oxyhemoglobin Carboxyhemoglobin Sodium 133 L Potassium Chloride Carbon Dioxide BUN 21 H Creatinine 0.3 L Glucose 259 H POC Glucose 308 H Hemoglobin A1c Magnesium Ferritin AST ALT Alkaline Phosphatase Lactate Dehydrogenase C-Reactive Protein Total Protein Albumin 3.2 L Arterial Blood Glucose Coronavirus (PCR) 05/06/21 05/06/21 05/06/21 11:24 17:54 21:32 WBC MCV MCH MCHC RDW Lymph % (Auto) [place] % (Auto) Eos % (Auto) Lymph # (Auto) [place] # (Auto) Eos # (Auto) Baso # (Auto) Seg Neutrophils % Seg Neuts % (Manual) Lymphocytes % (Manual) Seg Neutrophils # Seg Neutrophils # Man Lymphocytes # (Manual) D-Dimer ABG pH POC ABG pCO2 POC ABG pO2 ABG pO2 ABG HCO3 ABG O2 Saturation ABG Base Excess ABG Oxyhemoglobin ABG Sodium ABG Chloride ABG Glucose Oxyhemoglobin Carboxyhemoglobin Sodium Potassium Chloride Carbon Dioxide BUN Creatinine Glucose POC Glucose 262 H 124 H 246 H Hemoglobin A1c Magnesium Ferritin AST ALT Alkaline Phosphatase Lactate Dehydrogenase C-Reactive Protein Total Protein Albumin Arterial Blood Glucose Coronavirus (PCR) 05/06/21 05/07/21 05/07/21 23:10 04:54 04:54 WBC MCV MCH MCHC RDW Lymph % (Auto) [place] % (Auto) Eos % (Auto) Lymph # (Auto) [place] # (Auto) Eos # (Auto) Baso # (Auto) Seg Neutrophils % Seg Neuts % (Manual) Lymphocytes % (Manual) Seg Neutrophils # Seg Neutrophils # Man Lymphocytes # (Manual) D-Dimer 1609.28 H ABG pH POC ABG pCO2 POC ABG pO2 ABG pO2 ABG HCO3 ABG O2 Saturation ABG Base Excess ABG Oxyhemoglobin ABG Sodium ABG Chloride ABG Glucose Oxyhemoglobin Carboxyhemoglobin Sodium 136 L Potassium Chloride Carbon Dioxide BUN 23 H Creatinine 0.3 L Glucose 110 H POC Glucose 249 H Hemoglobin A1c Magnesium Ferritin AST ALT Alkaline Phosphatase Lactate Dehydrogenase C-Reactive Protein Total Protein 6.2 L Albumin 3.0 L Arterial Blood Glucose Coronavirus (PCR) 05/07/21 05/07/21 05/07/21 04:54 04:54 11:41 WBC MCV MCH MCHC RDW Lymph % (Auto) [place] % (Auto) Eos % (Auto) Lymph # (Auto) [place] # (Auto) Eos # (Auto) Baso # (Auto) Seg Neutrophils % Seg Neuts % (Manual) Lymphocytes % (Manual) Seg Neutrophils # Seg Neutrophils # Man Lymphocytes # (Manual) D-Dimer ABG pH POC ABG pCO2 POC ABG pO2 ABG pO2 ABG HCO3 ABG O2 Saturation ABG Base Excess ABG Oxyhemoglobin ABG Sodium ABG Chloride ABG Glucose Oxyhemoglobin Carboxyhemoglobin Sodium Potassium Chloride Carbon Dioxide BUN Creatinine Glucose POC Glucose 118 H Hemoglobin A1c Magnesium Ferritin 296.1 H AST ALT Alkaline Phosphatase Lactate Dehydrogenase 724 H C-Reactive Protein Total Protein Albumin Arterial Blood Glucose Coronavirus (PCR) 05/07/21 05/07/21 05/08/21 16:43 22:34 06:44 WBC MCV MCH MCHC RDW Lymph % (Auto) [place] % (Auto) Eos % (Auto) Lymph # (Auto) [place] # (Auto) Eos # (Auto) Baso # (Auto) Seg Neutrophils % Seg Neuts % (Manual) Lymphocytes % (Manual) Seg Neutrophils # Seg Neutrophils # Man Lymphocytes # (Manual) D-Dimer ABG pH POC ABG pCO2 POC ABG pO2 ABG pO2 ABG HCO3 ABG O2 Saturation ABG Base Excess ABG Oxyhemoglobin ABG Sodium ABG Chloride ABG Glucose Oxyhemoglobin Carboxyhemoglobin Sodium Potassium Chloride Carbon Dioxide BUN Creatinine Glucose POC Glucose 159 H 233 H 235 H Hemoglobin A1c Magnesium Ferritin AST ALT Alkaline Phosphatase Lactate Dehydrogenase C-Reactive Protein Total Protein Albumin Arterial Blood Glucose Coronavirus (PCR) 05/08/21 05/08/21 05/08/21 07:49 11:56 17:13 WBC MCV MCH MCHC RDW Lymph % (Auto) [place] % (Auto) Eos % (Auto) Lymph # (Auto) [place] # (Auto) Eos # (Auto) Baso # (Auto) Seg Neutrophils % Seg Neuts % (Manual) Lymphocytes % (Manual) Seg Neutrophils # Seg Neutrophils # Man Lymphocytes # (Manual) D-Dimer ABG pH POC ABG pCO2 POC ABG pO2 ABG pO2 ABG HCO3 ABG O2 Saturation ABG Base Excess ABG Oxyhemoglobin ABG Sodium ABG Chloride ABG Glucose Oxyhemoglobin Carboxyhemoglobin Sodium Potassium Chloride Carbon Dioxide BUN Creatinine Glucose POC Glucose 219 H 184 H 182 H Hemoglobin A1c Magnesium Ferritin AST ALT Alkaline Phosphatase Lactate Dehydrogenase C-Reactive Protein Total Protein Albumin Arterial Blood Glucose Coronavirus (PCR) 05/08/21 05/09/21 05/09/21 23:35 05:20 05:20 WBC MCV MCH MCHC RDW Lymph % (Auto) [place] % (Auto) Eos % (Auto) Lymph # (Auto) [place] # (Auto) Eos # (Auto) Baso # (Auto) Seg Neutrophils % Seg Neuts % (Manual) Lymphocytes % (Manual) Seg Neutrophils # Seg Neutrophils # Man Lymphocytes # (Manual) D-Dimer 1003.87 H ABG pH POC ABG pCO2 POC ABG pO2 ABG pO2 ABG HCO3 ABG O2 Saturation ABG Base Excess ABG Oxyhemoglobin ABG Sodium ABG Chloride ABG Glucose Oxyhemoglobin Carboxyhemoglobin Sodium Potassium Chloride Carbon Dioxide BUN Creatinine Glucose POC Glucose 198 H Hemoglobin A1c Magnesium Ferritin 378.7 H AST ALT Alkaline Phosphatase Lactate Dehydrogenase C-Reactive Protein Total Protein Albumin Arterial Blood Glucose Coronavirus (PCR) 05/09/21 05/09/21 05/09/21 05:20 06:04 12:53 WBC MCV MCH MCHC RDW Lymph % (Auto) [place] % (Auto) Eos % (Auto) Lymph # (Auto) [place] # (Auto) Eos # (Auto) Baso # (Auto) Seg Neutrophils % Seg Neuts % (Manual) Lymphocytes % (Manual) Seg Neutrophils # Seg Neutrophils # Man Lymphocytes # (Manual) D-Dimer ABG pH POC ABG pCO2 POC ABG pO2 ABG pO2 ABG HCO3 ABG O2 Saturation ABG Base Excess ABG Oxyhemoglobin ABG Sodium ABG Chloride ABG Glucose Oxyhemoglobin Carboxyhemoglobin Sodium Potassium Chloride Carbon Dioxide BUN Creatinine Glucose POC Glucose 159 H 180 H Hemoglobin A1c Magnesium Ferritin AST ALT Alkaline Phosphatase Lactate Dehydrogenase 558 H C-Reactive Protein 2.40 H Total Protein Albumin Arterial Blood Glucose Coronavirus (PCR) 05/09/21 05/09/21 05/10/21 16:43 21:27 10:18 WBC MCV MCH MCHC RDW Lymph % (Auto) [place] % (Auto) Eos % (Auto) Lymph # (Auto) [place] # (Auto) Eos # (Auto) Baso # (Auto) Seg Neutrophils % Seg Neuts % (Manual) Lymphocytes % (Manual) Seg Neutrophils # Seg Neutrophils # Man Lymphocytes # (Manual) D-Dimer ABG pH POC ABG pCO2 POC ABG pO2 ABG pO2 ABG HCO3 ABG O2 Saturation ABG Base Excess ABG Oxyhemoglobin ABG Sodium ABG Chloride ABG Glucose Oxyhemoglobin Carboxyhemoglobin Sodium Potassium Chloride Carbon Dioxide BUN Creatinine Glucose POC Glucose 212 H 285 H 261 H Hemoglobin A1c Magnesium Ferritin AST ALT Alkaline Phosphatase Lactate Dehydrogenase C-Reactive Protein Total Protein Albumin Arterial Blood Glucose Coronavirus (PCR) 05/10/21 05/10/21 05/11/21 17:58 18:02 00:29 WBC MCV MCH MCHC RDW Lymph % (Auto) [place] % (Auto) Eos % (Auto) Lymph # (Auto) [place] # (Auto) Eos # (Auto) Baso # (Auto) Seg Neutrophils % Seg Neuts % (Manual) Lymphocytes % (Manual) Seg Neutrophils # Seg Neutrophils # Man Lymphocytes # (Manual) D-Dimer ABG pH POC ABG pCO2 POC ABG pO2 ABG pO2 ABG HCO3 ABG O2 Saturation ABG Base Excess ABG Oxyhemoglobin ABG Sodium ABG Chloride ABG Glucose Oxyhemoglobin Carboxyhemoglobin Sodium Potassium Chloride Carbon Dioxide BUN Creatinine Glucose POC Glucose 213 H 179 H 149 H Hemoglobin A1c Magnesium Ferritin AST ALT Alkaline Phosphatase Lactate Dehydrogenase C-Reactive Protein Total Protein Albumin Arterial Blood Glucose Coronavirus (PCR) 08/28/21 08/28/21 08/28/21 05:22 11:32 17:00 WBC 14.9 H MCV MCH MCHC RDW 18.9 H Lymph % (Auto) 4.9 L [place] % (Auto) Eos % (Auto) Lymph # (Auto) 0.7 L [place] # (Auto) Eos # (Auto) Baso # (Auto) 0.2 H Seg Neutrophils % Seg Neuts % (Manual) Lymphocytes % (Manual) Seg Neutrophils # 13.3 H Seg Neutrophils # Man Lymphocytes # (Manual) D-Dimer ABG pH POC ABG pCO2 POC ABG pO2 ABG pO2 ABG HCO3 ABG O2 Saturation ABG Base Excess ABG Oxyhemoglobin ABG Sodium ABG Chloride ABG Glucose Oxyhemoglobin Carboxyhemoglobin Sodium Potassium Chloride Carbon Dioxide BUN Creatinine Glucose POC Glucose 162 H 179 H Hemoglobin A1c Magnesium Ferritin AST ALT Alkaline Phosphatase Lactate Dehydrogenase C-Reactive Protein Total Protein Albumin Arterial Blood Glucose Coronavirus (PCR) 05/11/21 05/11/21 05/11/21 17:00 17:33 22:03 WBC MCV MCH MCHC RDW Lymph % (Auto) [place] % (Auto) Eos % (Auto) Lymph # (Auto) [place] # (Auto) Eos # (Auto) Baso # (Auto) Seg Neutrophils % Seg Neuts % (Manual) Lymphocytes % (Manual) Seg Neutrophils # Seg Neutrophils # Man Lymphocytes # (Manual) D-Dimer ABG pH POC ABG pCO2 POC ABG pO2 ABG pO2 ABG HCO3 ABG O2 Saturation ABG Base Excess ABG Oxyhemoglobin ABG Sodium ABG Chloride ABG Glucose Oxyhemoglobin Carboxyhemoglobin Sodium 135 L Potassium Chloride 97.3 L Carbon Dioxide BUN 21 H Creatinine 0.3 L Glucose 133 H POC Glucose 140 H 282 H Hemoglobin A1c Magnesium Ferritin AST ALT 60 H Alkaline Phosphatase Lactate Dehydrogenase C-Reactive Protein Total Protein Albumin 3.1 L Arterial Blood Glucose Coronavirus (PCR) 05/12/21 05/12/21 05/12/21 04:05 04:05 04:05 WBC MCV MCH MCHC RDW 18.4 H Lymph % (Auto) [place] % (Auto) Eos % (Auto) Lymph # (Auto) [place] # (Auto) Eos # (Auto) Baso # (Auto) Seg Neutrophils % Seg Neuts % (Manual) 94.0 H Lymphocytes % (Manual) 4.0 L Seg Neutrophils # Seg Neutrophils # Man Lymphocytes # (Manual) 0.3 L D-Dimer ABG pH POC ABG pCO2 POC ABG pO2 ABG pO2 ABG HCO3 ABG O2 Saturation ABG Base Excess ABG Oxyhemoglobin ABG Sodium ABG Chloride ABG Glucose Oxyhemoglobin Carboxyhemoglobin Sodium 136 L Potassium Chloride Carbon Dioxide BUN 18 H Creatinine 0.2 L Glucose 142 H POC Glucose Hemoglobin A1c Magnesium Ferritin 350.7 H AST ALT Alkaline Phosphatase Lactate Dehydrogenase 546 H C-Reactive Protein Total Protein 6.1 L Albumin 3.0 L Arterial Blood Glucose Coronavirus (PCR) 05/12/21 05/12/21 05/12/21 05:11 11:17 16:27 WBC MCV MCH MCHC RDW Lymph % (Auto) [place] % (Auto) Eos % (Auto) Lymph # (Auto) [place] # (Auto) Eos # (Auto) Baso # (Auto) Seg Neutrophils % Seg Neuts % (Manual) Lymphocytes % (Manual) Seg Neutrophils # Seg Neutrophils # Man Lymphocytes # (Manual) D-Dimer ABG pH POC ABG pCO2 POC ABG pO2 ABG pO2 ABG HCO3 ABG O2 Saturation ABG Base Excess ABG Oxyhemoglobin ABG Sodium ABG Chloride ABG Glucose Oxyhemoglobin Carboxyhemoglobin Sodium Potassium Chloride Carbon Dioxide BUN Creatinine Glucose POC Glucose 152 H 190 H 261 H Hemoglobin A1c Magnesium Ferritin AST ALT Alkaline Phosphatase Lactate Dehydrogenase C-Reactive Protein Total Protein Albumin Arterial Blood Glucose Coronavirus (PCR) 05/12/21 05/13/21 05/13/21 20:55 11:08 21:41 WBC MCV MCH MCHC RDW Lymph % (Auto) [place] % (Auto) Eos % (Auto) Lymph # (Auto) [place] # (Auto) Eos # (Auto) Baso # (Auto) Seg Neutrophils % Seg Neuts % (Manual) Lymphocytes % (Manual) Seg Neutrophils # Seg Neutrophils # Man Lymphocytes # (Manual) D-Dimer ABG pH POC ABG pCO2 POC ABG pO2 ABG pO2 ABG HCO3 ABG O2 Saturation ABG Base Excess ABG Oxyhemoglobin ABG Sodium ABG Chloride ABG Glucose Oxyhemoglobin Carboxyhemoglobin Sodium Potassium Chloride Carbon Dioxide BUN Creatinine Glucose POC Glucose 231 H 106 H 174 H Hemoglobin A1c Magnesium Ferritin AST ALT Alkaline Phosphatase Lactate Dehydrogenase C-Reactive Protein Total Protein Albumin Arterial Blood Glucose Coronavirus (PCR) 05/14/21 05/14/21 05/14/21 00:53 02:23 06:06 WBC MCV MCH MCHC RDW Lymph % (Auto) [place] % (Auto) Eos % (Auto) Lymph # (Auto) [place] # (Auto) Eos # (Auto) Baso # (Auto) Seg Neutrophils % Seg Neuts % (Manual) Lymphocytes % (Manual) Seg Neutrophils # Seg Neutrophils # Man Lymphocytes # (Manual) D-Dimer ABG pH POC ABG pCO2 POC ABG pO2 ABG pO2 130.3 H ABG HCO3 30.6 H ABG O2 Saturation ABG Base Excess 4.9 H ABG Oxyhemoglobin ABG Sodium ABG Chloride ABG Glucose Oxyhemoglobin Carboxyhemoglobin Sodium Potassium Chloride Carbon Dioxide BUN Creatinine Glucose POC Glucose 229 H 119 H Hemoglobin A1c Magnesium Ferritin AST ALT Alkaline Phosphatase Lactate Dehydrogenase C-Reactive Protein Total Protein Albumin Arterial Blood Glucose Coronavirus (PCR) 05/14/21 05/14/21 05/14/21 07:13 07:13 07:13 WBC MCV MCH MCHC RDW Lymph % (Auto) [place] % (Auto) Eos % (Auto) Lymph # (Auto) [place] # (Auto) Eos # (Auto) Baso # (Auto) Seg Neutrophils % Seg Neuts % (Manual) Lymphocytes % (Manual) Seg Neutrophils # Seg Neutrophils # Man Lymphocytes # (Manual) D-Dimer 712.80 H ABG pH POC ABG pCO2 POC ABG pO2 ABG pO2 ABG HCO3 ABG O2 Saturation ABG Base Excess ABG Oxyhemoglobin ABG Sodium ABG Chloride ABG Glucose Oxyhemoglobin Carboxyhemoglobin Sodium 133 L Potassium Chloride 95.5 L Carbon Dioxide 32 H BUN Creatinine 0.2 L Glucose 137 H POC Glucose Hemoglobin A1c Magnesium Ferritin 283.5 H AST ALT 63 H Alkaline Phosphatase Lactate Dehydrogenase 563 H C-Reactive Protein Total Protein 6.1 L Albumin 3.0 L Arterial Blood Glucose Coronavirus (PCR) 05/14/21 05/14/21 05/14/21 12:21 15:33 21:50 WBC MCV MCH MCHC RDW Lymph % (Auto) [place] % (Auto) Eos % (Auto) Lymph # (Auto) [place] # (Auto) Eos # (Auto) Baso # (Auto) Seg Neutrophils % Seg Neuts % (Manual) Lymphocytes % (Manual) Seg Neutrophils # Seg Neutrophils # Man Lymphocytes # (Manual) D-Dimer ABG pH POC ABG pCO2 POC ABG pO2 ABG pO2 ABG HCO3 ABG O2 Saturation ABG Base Excess ABG Oxyhemoglobin ABG Sodium ABG Chloride ABG Glucose Oxyhemoglobin Carboxyhemoglobin Sodium Potassium Chloride Carbon Dioxide BUN Creatinine Glucose POC Glucose 143 H 204 H 202 H Hemoglobin A1c Magnesium Ferritin AST ALT Alkaline Phosphatase Lactate Dehydrogenase C-Reactive Protein Total Protein Albumin Arterial Blood Glucose Coronavirus (PCR) 05/15/21 05/15/21 05/15/21 05:05 11:12 16:39 WBC MCV MCH MCHC RDW Lymph % (Auto) [place] % (Auto) Eos % (Auto) Lymph # (Auto) [place] # (Auto) Eos # (Auto) Baso # (Auto) Seg Neutrophils % Seg Neuts % (Manual) Lymphocytes % (Manual) Seg Neutrophils # Seg Neutrophils # Man Lymphocytes # (Manual) D-Dimer ABG pH POC ABG pCO2 POC ABG pO2 ABG pO2 ABG HCO3 ABG O2 Saturation ABG Base Excess ABG Oxyhemoglobin ABG Sodium ABG Chloride ABG Glucose Oxyhemoglobin Carboxyhemoglobin Sodium Potassium Chloride Carbon Dioxide BUN Creatinine Glucose POC Glucose 125 H 201 H 241 H Hemoglobin A1c Magnesium Ferritin AST ALT Alkaline Phosphatase Lactate Dehydrogenase C-Reactive Protein Total Protein Albumin Arterial Blood Glucose Coronavirus (PCR) 05/15/21 05/16/21 05/16/21 21:31 05:04 10:40 WBC MCV MCH MCHC RDW Lymph % (Auto) [place] % (Auto) Eos % (Auto) Lymph # (Auto) [place] # (Auto) Eos # (Auto) Baso # (Auto) Seg Neutrophils % Seg Neuts % (Manual) Lymphocytes % (Manual) Seg Neutrophils # Seg Neutrophils # Man Lymphocytes # (Manual) D-Dimer ABG pH POC ABG pCO2 POC ABG pO2 ABG pO2 ABG HCO3 ABG O2 Saturation ABG Base Excess ABG Oxyhemoglobin ABG Sodium ABG Chloride ABG Glucose Oxyhemoglobin Carboxyhemoglobin Sodium Potassium Chloride Carbon Dioxide BUN Creatinine Glucose POC Glucose 234 H 123 H 231 H Hemoglobin A1c Magnesium Ferritin AST ALT Alkaline Phosphatase Lactate Dehydrogenase C-Reactive Protein Total Protein Albumin Arterial Blood Glucose Coronavirus (PCR) 05/16/21 05/16/21 05/17/21 18:23 21:29 06:20 WBC MCV MCH MCHC RDW 18.8 H Lymph % (Auto) 10.2 L [place] % (Auto) Eos % (Auto) Lymph # (Auto) 0.8 L [place] # (Auto) Eos # (Auto) Baso # (Auto) Seg Neutrophils % 85.8 H Seg Neuts % (Manual) Lymphocytes % (Manual) Seg Neutrophils # Seg Neutrophils # Man Lymphocytes # (Manual) D-Dimer ABG pH POC ABG pCO2 POC ABG pO2 ABG pO2 ABG HCO3 ABG O2 Saturation ABG Base Excess ABG Oxyhemoglobin ABG Sodium ABG Chloride ABG Glucose Oxyhemoglobin Carboxyhemoglobin Sodium Potassium Chloride Carbon Dioxide BUN Creatinine Glucose POC Glucose 266 H 234 H Hemoglobin A1c Magnesium Ferritin AST ALT Alkaline Phosphatase Lactate Dehydrogenase C-Reactive Protein Total Protein Albumin Arterial Blood Glucose Coronavirus (PCR) 05/17/21 05/17/21 05/17/21 06:20 11:06 16:36 WBC MCV MCH MCHC RDW Lymph % (Auto) [place] % (Auto) Eos % (Auto) Lymph # (Auto) [place] # (Auto) Eos # (Auto) Baso # (Auto) Seg Neutrophils % Seg Neuts % (Manual) Lymphocytes % (Manual) Seg Neutrophils # Seg Neutrophils # Man Lymphocytes # (Manual) D-Dimer ABG pH POC ABG pCO2 POC ABG pO2 ABG pO2 ABG HCO3 ABG O2 Saturation ABG Base Excess ABG Oxyhemoglobin ABG Sodium ABG Chloride ABG Glucose Oxyhemoglobin Carboxyhemoglobin Sodium Potassium Chloride Carbon Dioxide 33 H BUN Creatinine 0.2 L Glucose 101 H POC Glucose 209 H 180 H Hemoglobin A1c Magnesium Ferritin AST ALT Alkaline Phosphatase Lactate Dehydrogenase C-Reactive Protein Total Protein Albumin Arterial Blood Glucose Coronavirus (PCR) 05/17/21 05/18/21 05/18/21 21:06 12:00 15:06 WBC MCV MCH MCHC RDW Lymph % (Auto) [place] % (Auto) Eos % (Auto) Lymph # (Auto) [place] # (Auto) Eos # (Auto) Baso # (Auto) Seg Neutrophils % Seg Neuts % (Manual) Lymphocytes % (Manual) Seg Neutrophils # Seg Neutrophils # Man Lymphocytes # (Manual) D-Dimer 874.02 H ABG pH POC ABG pCO2 POC ABG pO2 ABG pO2 ABG HCO3 ABG O2 Saturation ABG Base Excess ABG Oxyhemoglobin ABG Sodium ABG Chloride ABG Glucose Oxyhemoglobin Carboxyhemoglobin Sodium Potassium Chloride Carbon Dioxide BUN Creatinine Glucose POC Glucose 256 H 139 H Hemoglobin A1c Magnesium Ferritin AST ALT Alkaline Phosphatase Lactate Dehydrogenase C-Reactive Protein Total Protein Albumin Arterial Blood Glucose Coronavirus (PCR) 05/18/21 05/18/21 05/18/21 15:06 15:06 16:08 WBC MCV MCH MCHC RDW Lymph % (Auto) [place] % (Auto) Eos % (Auto) Lymph # (Auto) [place] # (Auto) Eos # (Auto) Baso # (Auto) Seg Neutrophils % Seg Neuts % (Manual) Lymphocytes % (Manual) Seg Neutrophils # Seg Neutrophils # Man Lymphocytes # (Manual) D-Dimer ABG pH POC ABG pCO2 POC ABG pO2 ABG pO2 ABG HCO3 ABG O2 Saturation ABG Base Excess ABG Oxyhemoglobin ABG Sodium ABG Chloride ABG Glucose Oxyhemoglobin Carboxyhemoglobin Sodium Potassium Chloride Carbon Dioxide BUN Creatinine Glucose POC Glucose 178 H Hemoglobin A1c Magnesium Ferritin 289.6 H AST ALT Alkaline Phosphatase Lactate Dehydrogenase 605 H C-Reactive Protein Total Protein Albumin Arterial Blood Glucose Coronavirus (PCR) 05/18/21 05/19/21 05/19/21 21:22 11:57 15:26 WBC MCV MCH MCHC RDW Lymph % (Auto) [place] % (Auto) Eos % (Auto) Lymph # (Auto) [place] # (Auto) Eos # (Auto) Baso # (Auto) Seg Neutrophils % Seg Neuts % (Manual) Lymphocytes % (Manual) Seg Neutrophils # Seg Neutrophils # Man Lymphocytes # (Manual) D-Dimer ABG pH POC ABG pCO2 POC ABG pO2 ABG pO2 ABG HCO3 ABG O2 Saturation ABG Base Excess ABG Oxyhemoglobin ABG Sodium ABG Chloride ABG Glucose Oxyhemoglobin Carboxyhemoglobin Sodium Potassium Chloride Carbon Dioxide BUN Creatinine Glucose POC Glucose 241 H 201 H 209 H Hemoglobin A1c Magnesium Ferritin AST ALT Alkaline Phosphatase Lactate Dehydrogenase C-Reactive Protein Total Protein Albumin Arterial Blood Glucose Coronavirus (PCR) 05/19/21 05/20/21 05/20/21 20:59 07:38 08:01 WBC MCV MCH MCHC RDW 19.7 H Lymph % (Auto) 8.3 L [place] % (Auto) Eos % (Auto) Lymph # (Auto) 0.8 L [place] # (Auto) Eos # (Auto) Baso # (Auto) Seg Neutrophils % 88.6 H Seg Neuts % (Manual) Lymphocytes % (Manual) Seg Neutrophils # 8.4 H Seg Neutrophils # Man Lymphocytes # (Manual) D-Dimer ABG pH POC ABG pCO2 POC ABG pO2 ABG pO2 ABG HCO3 ABG O2 Saturation ABG Base Excess ABG Oxyhemoglobin ABG Sodium ABG Chloride ABG Glucose Oxyhemoglobin Carboxyhemoglobin Sodium Potassium Chloride Carbon Dioxide BUN Creatinine Glucose POC Glucose 226 H 130 H Hemoglobin A1c Magnesium Ferritin AST ALT Alkaline Phosphatase Lactate Dehydrogenase C-Reactive Protein Total Protein Albumin Arterial Blood Glucose Coronavirus (PCR) 05/20/21 05/20/21 05/20/21 08:01 11:00 16:43 WBC MCV MCH MCHC RDW Lymph % (Auto) [place] % (Auto) Eos % (Auto) Lymph # (Auto) [place] # (Auto) Eos # (Auto) Baso # (Auto) Seg Neutrophils % Seg Neuts % (Manual) Lymphocytes % (Manual) Seg Neutrophils # Seg Neutrophils # Man Lymphocytes # (Manual) D-Dimer ABG pH POC ABG pCO2 POC ABG pO2 ABG pO2 ABG HCO3 ABG O2 Saturation ABG Base Excess ABG Oxyhemoglobin ABG Sodium ABG Chloride ABG Glucose Oxyhemoglobin Carboxyhemoglobin Sodium Potassium Chloride Carbon Dioxide BUN 18 H Creatinine 0.2 L Glucose 132 H POC Glucose 237 H 240 H Hemoglobin A1c Magnesium Ferritin AST ALT Alkaline Phosphatase Lactate Dehydrogenase C-Reactive Protein Total Protein Albumin Arterial Blood Glucose Coronavirus (PCR) 05/20/21 05/21/21 05/21/21 21:21 07:35 11:32 WBC MCV MCH MCHC RDW Lymph % (Auto) [place] % (Auto) Eos % (Auto) Lymph # (Auto) [place] # (Auto) Eos # (Auto) Baso # (Auto) Seg Neutrophils % Seg Neuts % (Manual) Lymphocytes % (Manual) Seg Neutrophils # Seg Neutrophils # Man Lymphocytes # (Manual) D-Dimer ABG pH POC ABG pCO2 POC ABG pO2 ABG pO2 ABG HCO3 ABG O2 Saturation ABG Base Excess ABG Oxyhemoglobin ABG Sodium ABG Chloride ABG Glucose Oxyhemoglobin Carboxyhemoglobin Sodium Potassium Chloride Carbon Dioxide BUN Creatinine Glucose POC Glucose 241 H 162 H 171 H Hemoglobin A1c Magnesium Ferritin AST ALT Alkaline Phosphatase Lactate Dehydrogenase C-Reactive Protein Total Protein Albumin Arterial Blood Glucose Coronavirus (PCR) 05/21/21 05/21/21 05/22/21 16:22 20:43 05:14 WBC MCV MCH MCHC RDW Lymph % (Auto) [place] % (Auto) Eos % (Auto) Lymph # (Auto) [place] # (Auto) Eos # (Auto) Baso # (Auto) Seg Neutrophils % Seg Neuts % (Manual) Lymphocytes % (Manual) Seg Neutrophils # Seg Neutrophils # Man Lymphocytes # (Manual) D-Dimer ABG pH POC ABG pCO2 POC ABG pO2 ABG pO2 ABG HCO3 ABG O2 Saturation ABG Base Excess ABG Oxyhemoglobin ABG Sodium ABG Chloride ABG Glucose Oxyhemoglobin Carboxyhemoglobin Sodium Potassium Chloride Carbon Dioxide BUN Creatinine Glucose POC Glucose 244 H 299 H 140 H Hemoglobin A1c Magnesium Ferritin AST ALT Alkaline Phosphatase Lactate Dehydrogenase C-Reactive Protein Total Protein Albumin Arterial Blood Glucose Coronavirus (PCR) 05/22/21 05/22/21 05/22/21 08:45 11:54 16:15 WBC MCV MCH MCHC RDW Lymph % (Auto) [place] % (Auto) Eos % (Auto) Lymph # (Auto) [place] # (Auto) Eos # (Auto) Baso # (Auto) Seg Neutrophils % Seg Neuts % (Manual) Lymphocytes % (Manual) Seg Neutrophils # Seg Neutrophils # Man Lymphocytes # (Manual) D-Dimer ABG pH POC ABG pCO2 POC ABG pO2 ABG pO2 ABG HCO3 ABG O2 Saturation ABG Base Excess ABG Oxyhemoglobin ABG Sodium ABG Chloride ABG Glucose Oxyhemoglobin Carboxyhemoglobin Sodium Potassium Chloride Carbon Dioxide BUN Creatinine Glucose POC Glucose 133 H 265 H 221 H Hemoglobin A1c Magnesium Ferritin AST ALT Alkaline Phosphatase Lactate Dehydrogenase C-Reactive Protein Total Protein Albumin Arterial Blood Glucose Coronavirus (PCR) 05/22/21 05/23/21 05/23/21 21:43 08:20 09:50 WBC MCV MCH MCHC RDW Lymph % (Auto) [place] % (Auto) Eos % (Auto) Lymph # (Auto) [place] # (Auto) Eos # (Auto) Baso # (Auto) Seg Neutrophils % Seg Neuts % (Manual) Lymphocytes % (Manual) Seg Neutrophils # Seg Neutrophils # Man Lymphocytes # (Manual) D-Dimer 910.38 H ABG pH POC ABG pCO2 POC ABG pO2 ABG pO2 ABG HCO3 ABG O2 Saturation ABG Base Excess ABG Oxyhemoglobin ABG Sodium ABG Chloride ABG Glucose Oxyhemoglobin Carboxyhemoglobin Sodium Potassium Chloride Carbon Dioxide BUN Creatinine Glucose POC Glucose 262 H 140 H Hemoglobin A1c Magnesium Ferritin AST ALT Alkaline Phosphatase Lactate Dehydrogenase C-Reactive Protein Total Protein Albumin Arterial Blood Glucose Coronavirus (PCR) 05/23/21 05/23/2121 09:50 09:50 10:52 WBC MCV MCH MCHC RDW Lymph % (Auto) [place] % (Auto) Eos % (Auto) Lymph # (Auto) [place] # (Auto) Eos # (Auto) Baso # (Auto) Seg Neutrophils % Seg Neuts % (Manual) Lymphocytes % (Manual) Seg Neutrophils # Seg Neutrophils # Man Lymphocytes # (Manual) D-Dimer ABG pH POC ABG pCO2 POC ABG pO2 ABG pO2 ABG HCO3 ABG O2 Saturation ABG Base Excess ABG Oxyhemoglobin ABG Sodium ABG Chloride ABG Glucose Oxyhemoglobin Carboxyhemoglobin Sodium Potassium Chloride Carbon Dioxide BUN Creatinine Glucose POC Glucose 241 H Hemoglobin A1c Magnesium Ferritin 244.9 H AST ALT Alkaline Phosphatase Lactate Dehydrogenase 584 H C-Reactive Protein Total Protein Albumin Arterial Blood Glucose Coronavirus (PCR) 05/23/21 05/23/21 05/24/21 17:24 21:52 07:44 WBC MCV MCH MCHC RDW Lymph % (Auto) [place] % (Auto) Eos % (Auto) Lymph # (Auto) [place] # (Auto) Eos # (Auto) Baso # (Auto) Seg Neutrophils % Seg Neuts % (Manual) Lymphocytes % (Manual) Seg Neutrophils # Seg Neutrophils # Man Lymphocytes # (Manual) D-Dimer ABG pH POC ABG pCO2 POC ABG pO2 ABG pO2 ABG HCO3 ABG O2 Saturation ABG Base Excess ABG Oxyhemoglobin ABG Sodium ABG Chloride ABG Glucose Oxyhemoglobin Carboxyhemoglobin Sodium Potassium Chloride Carbon Dioxide BUN Creatinine Glucose POC Glucose 197 H 289 H 161 H Hemoglobin A1c Magnesium Ferritin AST ALT Alkaline Phosphatase Lactate Dehydrogenase C-Reactive Protein Total Protein Albumin Arterial Blood Glucose Coronavirus (PCR) 05/24/21 05/24/21 05/24/21 11:17 17:51 21:26 WBC MCV MCH MCHC RDW Lymph % (Auto) [place] % (Auto) Eos % (Auto) Lymph # (Auto) [place] # (Auto) Eos # (Auto) Baso # (Auto) Seg Neutrophils % Seg Neuts % (Manual) Lymphocytes % (Manual) Seg Neutrophils # Seg Neutrophils # Man Lymphocytes # (Manual) D-Dimer ABG pH POC ABG pCO2 POC ABG pO2 ABG pO2 ABG HCO3 ABG O2 Saturation ABG Base Excess ABG Oxyhemoglobin ABG Sodium ABG Chloride ABG Glucose Oxyhemoglobin Carboxyhemoglobin Sodium Potassium Chloride Carbon Dioxide BUN Creatinine Glucose POC Glucose 308 H 175 H 198 H Hemoglobin A1c Magnesium Ferritin AST ALT Alkaline Phosphatase Lactate Dehydrogenase C-Reactive Protein Total Protein Albumin Arterial Blood Glucose Coronavirus (PCR) 05/25/21 05/25/21 05/25/21 08:14 11:13 17:13 WBC MCV MCH MCHC RDW Lymph % (Auto) [place] % (Auto) Eos % (Auto) Lymph # (Auto) [place] # (Auto) Eos # (Auto) Baso # (Auto) Seg Neutrophils % Seg Neuts % (Manual) Lymphocytes % (Manual) Seg Neutrophils # Seg Neutrophils # Man Lymphocytes # (Manual) D-Dimer ABG pH POC ABG pCO2 POC ABG pO2 ABG pO2 ABG HCO3 ABG O2 Saturation ABG Base Excess ABG Oxyhemoglobin ABG Sodium ABG Chloride ABG Glucose Oxyhemoglobin Carboxyhemoglobin Sodium Potassium Chloride Carbon Dioxide BUN Creatinine Glucose POC Glucose 203 H 339 H 235 H Hemoglobin A1c Magnesium Ferritin AST ALT Alkaline Phosphatase Lactate Dehydrogenase C-Reactive Protein Total Protein Albumin Arterial Blood Glucose Coronavirus (PCR) 05/25/21 05/26/21 05/26/21 21:03 07:33 11:19 WBC MCV MCH MCHC RDW Lymph % (Auto) [place] % (Auto) Eos % (Auto) Lymph # (Auto) [place] # (Auto) Eos # (Auto) Baso # (Auto) Seg Neutrophils % Seg Neuts % (Manual) Lymphocytes % (Manual) Seg Neutrophils # Seg Neutrophils # Man Lymphocytes # (Manual) D-Dimer ABG pH POC ABG pCO2 POC ABG pO2 ABG pO2 ABG HCO3 ABG O2 Saturation ABG Base Excess ABG Oxyhemoglobin ABG Sodium ABG Chloride ABG Glucose Oxyhemoglobin Carboxyhemoglobin Sodium Potassium Chloride Carbon Dioxide BUN Creatinine Glucose POC Glucose 263 H 156 H 288 H Hemoglobin A1c Magnesium Ferritin AST ALT Alkaline Phosphatase Lactate Dehydrogenase C-Reactive Protein Total Protein Albumin Arterial Blood Glucose Coronavirus (PCR) 05/26/21 05/26/21 05/27/21 16:26 20:55 07:38 WBC MCV MCH MCHC RDW Lymph % (Auto) [place] % (Auto) Eos % (Auto) Lymph # (Auto) [place] # (Auto) Eos # (Auto) Baso # (Auto) Seg Neutrophils % Seg Neuts % (Manual) Lymphocytes % (Manual) Seg Neutrophils # Seg Neutrophils # Man Lymphocytes # (Manual) D-Dimer ABG pH POC ABG pCO2 POC ABG pO2 ABG pO2 ABG HCO3 ABG O2 Saturation ABG Base Excess ABG Oxyhemoglobin ABG Sodium ABG Chloride ABG Glucose Oxyhemoglobin Carboxyhemoglobin Sodium Potassium Chloride Carbon Dioxide BUN Creatinine Glucose POC Glucose 286 H 293 H 115 H Hemoglobin A1c Magnesium Ferritin AST ALT Alkaline Phosphatase Lactate Dehydrogenase C-Reactive Protein Total Protein Albumin Arterial Blood Glucose Coronavirus (PCR) 05/27/21 05/27/21 05/27/21 11:46 15:58 21:02 WBC MCV MCH MCHC RDW Lymph % (Auto) [place] % (Auto) Eos % (Auto) Lymph # (Auto) [place] # (Auto) Eos # (Auto) Baso # (Auto) Seg Neutrophils % Seg Neuts % (Manual) Lymphocytes % (Manual) Seg Neutrophils # Seg Neutrophils # Man Lymphocytes # (Manual) D-Dimer ABG pH POC ABG pCO2 POC ABG pO2 ABG pO2 ABG HCO3 ABG O2 Saturation ABG Base Excess ABG Oxyhemoglobin ABG Sodium ABG Chloride ABG Glucose Oxyhemoglobin Carboxyhemoglobin Sodium Potassium Chloride Carbon Dioxide BUN Creatinine Glucose POC Glucose 260 H 318 H 246 H Hemoglobin A1c Magnesium Ferritin AST ALT Alkaline Phosphatase Lactate Dehydrogenase C-Reactive Protein Total Protein Albumin Arterial Blood Glucose Coronavirus (PCR) 05/28/21 05/28/21 05/28/21 07:34 11:31 16:36 WBC MCV MCH MCHC RDW Lymph % (Auto) [place] % (Auto) Eos % (Auto) Lymph # (Auto) [place] # (Auto) Eos # (Auto) Baso # (Auto) Seg Neutrophils % Seg Neuts % (Manual) Lymphocytes % (Manual) Seg Neutrophils # Seg Neutrophils # Man Lymphocytes # (Manual) D-Dimer ABG pH POC ABG pCO2 POC ABG pO2 ABG pO2 ABG HCO3 ABG O2 Saturation ABG Base Excess ABG Oxyhemoglobin ABG Sodium ABG Chloride ABG Glucose Oxyhemoglobin Carboxyhemoglobin Sodium Potassium Chloride Carbon Dioxide BUN Creatinine Glucose POC Glucose 185 H 297 H 183 H Hemoglobin A1c Magnesium Ferritin AST ALT Alkaline Phosphatase Lactate Dehydrogenase C-Reactive Protein Total Protein Albumin Arterial Blood Glucose Coronavirus (PCR) 05/28/21 05/29/21 05/29/21 21:19 07:34 11:19 WBC MCV MCH MCHC RDW Lymph % (Auto) [place] % (Auto) Eos % (Auto) Lymph # (Auto) [place] # (Auto) Eos # (Auto) Baso # (Auto) Seg Neutrophils % Seg Neuts % (Manual) Lymphocytes % (Manual) Seg Neutrophils # Seg Neutrophils # Man Lymphocytes # (Manual) D-Dimer ABG pH POC ABG pCO2 POC ABG pO2 ABG pO2 ABG HCO3 ABG O2 Saturation ABG Base Excess ABG Oxyhemoglobin ABG Sodium ABG Chloride ABG Glucose Oxyhemoglobin Carboxyhemoglobin Sodium Potassium Chloride Carbon Dioxide BUN Creatinine Glucose POC Glucose 274 H 139 H 293 H Hemoglobin A1c Magnesium Ferritin AST ALT Alkaline Phosphatase Lactate Dehydrogenase C-Reactive Protein Total Protein Albumin Arterial Blood Glucose Coronavirus (PCR) 05/29/21 05/29/21 05/30/21 16:36 22:44 05:55 WBC MCV MCH MCHC RDW 21.3 H Lymph % (Auto) 8.0 L [place] % (Auto) Eos % (Auto) Lymph # (Auto) 0.6 L [place] # (Auto) Eos # (Auto) Baso # (Auto) Seg Neutrophils % 88.6 H Seg Neuts % (Manual) Lymphocytes % (Manual) Seg Neutrophils # Seg Neutrophils # Man Lymphocytes # (Manual) D-Dimer ABG pH POC ABG pCO2 POC ABG pO2 ABG pO2 ABG HCO3 ABG O2 Saturation ABG Base Excess ABG Oxyhemoglobin ABG Sodium ABG Chloride ABG Glucose Oxyhemoglobin Carboxyhemoglobin Sodium Potassium Chloride Carbon Dioxide BUN Creatinine Glucose POC Glucose 299 H 160 H Hemoglobin A1c Magnesium Ferritin AST ALT Alkaline Phosphatase Lactate Dehydrogenase C-Reactive Protein Total Protein Albumin Arterial Blood Glucose Coronavirus (PCR) 05/30/21 05/30/21 05/30/21 05:55 08:04 11:13 WBC MCV MCH MCHC RDW Lymph % (Auto) [place] % (Auto) Eos % (Auto) Lymph # (Auto) [place] # (Auto) Eos # (Auto) Baso # (Auto) Seg Neutrophils % Seg Neuts % (Manual) Lymphocytes % (Manual) Seg Neutrophils # Seg Neutrophils # Man Lymphocytes # (Manual) D-Dimer ABG pH POC ABG pCO2 POC ABG pO2 ABG pO2 ABG HCO3 ABG O2 Saturation ABG Base Excess ABG Oxyhemoglobin ABG Sodium ABG Chloride ABG Glucose Oxyhemoglobin Carboxyhemoglobin Sodium Potassium Chloride Carbon Dioxide BUN 19 H Creatinine 0.2 L Glucose 209 H POC Glucose 157 H 275 H Hemoglobin A1c Magnesium Ferritin AST ALT Alkaline Phosphatase Lactate Dehydrogenase C-Reactive Protein Total Protein Albumin Arterial Blood Glucose Coronavirus (PCR) 05/30/21 05/30/21 05/31/21 17:08 22:12 07:36 WBC MCV MCH MCHC RDW Lymph % (Auto) [place] % (Auto) Eos % (Auto) Lymph # (Auto) [place] # (Auto) Eos # (Auto) Baso # (Auto) Seg Neutrophils % Seg Neuts % (Manual) Lymphocytes % (Manual) Seg Neutrophils # Seg Neutrophils # Man Lymphocytes # (Manual) D-Dimer ABG pH POC ABG pCO2 POC ABG pO2 ABG pO2 ABG HCO3 ABG O2 Saturation ABG Base Excess ABG Oxyhemoglobin ABG Sodium ABG Chloride ABG Glucose Oxyhemoglobin Carboxyhemoglobin Sodium Potassium Chloride Carbon Dioxide BUN Creatinine Glucose POC Glucose 154 H 275 H 138 H Hemoglobin A1c Magnesium Ferritin AST ALT Alkaline Phosphatase Lactate Dehydrogenase C-Reactive Protein Total Protein Albumin Arterial Blood Glucose Coronavirus (PCR) 05/31/21 05/31/21 05/31/21 11:17 16:55 21:25 WBC MCV MCH MCHC RDW Lymph % (Auto) [place] % (Auto) Eos % (Auto) Lymph # (Auto) [place] # (Auto) Eos # (Auto) Baso # (Auto) Seg Neutrophils % Seg Neuts % (Manual) Lymphocytes % (Manual) Seg Neutrophils # Seg Neutrophils # Man Lymphocytes # (Manual) D-Dimer ABG pH POC ABG pCO2 POC ABG pO2 ABG pO2 ABG HCO3 ABG O2 Saturation ABG Base Excess ABG Oxyhemoglobin ABG Sodium ABG Chloride ABG Glucose Oxyhemoglobin Carboxyhemoglobin Sodium Potassium Chloride Carbon Dioxide BUN Creatinine Glucose POC Glucose 258 H 215 H 318 H Hemoglobin A1c Magnesium Ferritin AST ALT Alkaline Phosphatase Lactate Dehydrogenase C-Reactive Protein Total Protein Albumin Arterial Blood Glucose Coronavirus (PCR) 06/01/21 06/01/21 06/01/21 07:23 11:38 16:52 WBC MCV MCH MCHC RDW Lymph % (Auto) [place] % (Auto) Eos % (Auto) Lymph # (Auto) [place] # (Auto) Eos # (Auto) Baso # (Auto) Seg Neutrophils % Seg Neuts % (Manual) Lymphocytes % (Manual) Seg Neutrophils # Seg Neutrophils # Man Lymphocytes # (Manual) D-Dimer ABG pH POC ABG pCO2 POC ABG pO2 ABG pO2 ABG HCO3 ABG O2 Saturation ABG Base Excess ABG Oxyhemoglobin ABG Sodium ABG Chloride ABG Glucose Oxyhemoglobin Carboxyhemoglobin Sodium Potassium Chloride Carbon Dioxide BUN Creatinine Glucose POC Glucose 157 H 259 H 150 H Hemoglobin A1c Magnesium Ferritin AST ALT Alkaline Phosphatase Lactate Dehydrogenase C-Reactive Protein Total Protein Albumin Arterial Blood Glucose Coronavirus (PCR) 06/01/21 06/02/21 06/02/21 23:16 05:34 05:34 WBC MCV MCH MCHC RDW 21.3 H Lymph % (Auto) 9.6 L [place] % (Auto) Eos % (Auto) Lymph # (Auto) 0.6 L [place] # (Auto) Eos # (Auto) Baso # (Auto) Seg Neutrophils % 86.2 H Seg Neuts % (Manual) Lymphocytes % (Manual) Seg Neutrophils # Seg Neutrophils # Man Lymphocytes # (Manual) D-Dimer ABG pH POC ABG pCO2 POC ABG pO2 ABG pO2 ABG HCO3 ABG O2 Saturation ABG Base Excess ABG Oxyhemoglobin ABG Sodium ABG Chloride ABG Glucose Oxyhemoglobin Carboxyhemoglobin Sodium 136 L Potassium Chloride Carbon Dioxide BUN Creatinine 0.2 L Glucose 186 H POC Glucose 247 H Hemoglobin A1c Magnesium Ferritin AST ALT 69 H Alkaline Phosphatase Lactate Dehydrogenase C-Reactive Protein Total Protein 6.1 L Albumin 3.2 L Arterial Blood Glucose Coronavirus (PCR) 06/02/21 06/02/21 06/02/21 11:25 18:23 21:32 WBC MCV MCH MCHC RDW Lymph % (Auto) [place] % (Auto) Eos % (Auto) Lymph # (Auto) [place] # (Auto) Eos # (Auto) Baso # (Auto) Seg Neutrophils % Seg Neuts % (Manual) Lymphocytes % (Manual) Seg Neutrophils # Seg Neutrophils # Man Lymphocytes # (Manual) D-Dimer ABG pH POC ABG pCO2 POC ABG pO2 ABG pO2 ABG HCO3 ABG O2 Saturation ABG Base Excess ABG Oxyhemoglobin ABG Sodium ABG Chloride ABG Glucose Oxyhemoglobin Carboxyhemoglobin Sodium Potassium Chloride Carbon Dioxide BUN Creatinine Glucose POC Glucose 157 H 299 H 246 H Hemoglobin A1c Magnesium Ferritin AST ALT Alkaline Phosphatase Lactate Dehydrogenase C-Reactive Protein Total Protein Albumin Arterial Blood Glucose Coronavirus (PCR) 06/03/21 06/03/21 06/03/21 08:12 12:21 17:31 WBC MCV MCH MCHC RDW Lymph % (Auto) [place] % (Auto) Eos % (Auto) Lymph # (Auto) [place] # (Auto) Eos # (Auto) Baso # (Auto) Seg Neutrophils % Seg Neuts % (Manual) Lymphocytes % (Manual) Seg Neutrophils # Seg Neutrophils # Man Lymphocytes # (Manual) D-Dimer ABG pH POC ABG pCO2 POC ABG pO2 ABG pO2 ABG HCO3 ABG O2 Saturation ABG Base Excess ABG Oxyhemoglobin ABG Sodium ABG Chloride ABG Glucose Oxyhemoglobin Carboxyhemoglobin Sodium Potassium Chloride Carbon Dioxide BUN Creatinine Glucose POC Glucose 153 H 302 H 252 H Hemoglobin A1c Magnesium Ferritin AST ALT Alkaline Phosphatase Lactate Dehydrogenase C-Reactive Protein Total Protein Albumin Arterial Blood Glucose Coronavirus (PCR) 06/03/21 06/04/21 06/04/21 22:08 11:12 16:01 WBC MCV MCH MCHC RDW Lymph % (Auto) [place] % (Auto) Eos % (Auto) Lymph # (Auto) [place] # (Auto) Eos # (Auto) Baso # (Auto) Seg Neutrophils % Seg Neuts % (Manual) Lymphocytes % (Manual) Seg Neutrophils # Seg Neutrophils # Man Lymphocytes # (Manual) D-Dimer ABG pH POC ABG pCO2 POC ABG pO2 ABG pO2 ABG HCO3 ABG O2 Saturation ABG Base Excess ABG Oxyhemoglobin ABG Sodium ABG Chloride ABG Glucose Oxyhemoglobin Carboxyhemoglobin Sodium Potassium Chloride Carbon Dioxide BUN Creatinine Glucose POC Glucose 224 H 259 H 238 H Hemoglobin A1c Magnesium Ferritin AST ALT Alkaline Phosphatase Lactate Dehydrogenase C-Reactive Protein Total Protein Albumin Arterial Blood Glucose Coronavirus (PCR) 06/04/21 06/05/21 06/05/21 21:26 05:26 05:26 WBC MCV MCH MCHC RDW Lymph % (Auto) [place] % (Auto) Eos % (Auto) Lymph # (Auto) [place] # (Auto) Eos # (Auto) Baso # (Auto) Seg Neutrophils % Seg Neuts % (Manual) Lymphocytes % (Manual) Seg Neutrophils # Seg Neutrophils # Man Lymphocytes # (Manual) D-Dimer 488.49 H ABG pH POC ABG pCO2 POC ABG pO2 ABG pO2 ABG HCO3 ABG O2 Saturation ABG Base Excess ABG Oxyhemoglobin ABG Sodium ABG Chloride ABG Glucose Oxyhemoglobin Carboxyhemoglobin Sodium Potassium Chloride Carbon Dioxide BUN Creatinine 0.2 L Glucose 198 H POC Glucose 257 H Hemoglobin A1c Magnesium Ferritin AST ALT Alkaline Phosphatase Lactate Dehydrogenase 475 H C-Reactive Protein Total Protein Albumin Arterial Blood Glucose Coronavirus (PCR) 06/05/21 06/05/21 06/05/21 07:20 08:30 11:00 WBC MCV MCH MCHC RDW Lymph % (Auto) [place] % (Auto) Eos % (Auto) Lymph # (Auto) [place] # (Auto) Eos # (Auto) Baso # (Auto) Seg Neutrophils % Seg Neuts % (Manual) Lymphocytes % (Manual) Seg Neutrophils # Seg Neutrophils # Man Lymphocytes # (Manual) D-Dimer ABG pH POC ABG pCO2 POC ABG pO2 ABG pO2 ABG HCO3 ABG O2 Saturation ABG Base Excess ABG Oxyhemoglobin ABG Sodium ABG Chloride ABG Glucose Oxyhemoglobin Carboxyhemoglobin Sodium Potassium Chloride Carbon Dioxide BUN Creatinine Glucose POC Glucose 146 H 246 H Hemoglobin A1c Magnesium Ferritin AST ALT Alkaline Phosphatase Lactate Dehydrogenase C-Reactive Protein Total Protein Albumin Arterial Blood Glucose Coronavirus (PCR) Positive A 06/05/21 06/05/21 06/06/21 16:50 22:30 07:57 WBC MCV MCH MCHC RDW Lymph % (Auto) [place] % (Auto) Eos % (Auto) Lymph # (Auto) [place] # (Auto) Eos # (Auto) Baso # (Auto) Seg Neutrophils % Seg Neuts % (Manual) Lymphocytes % (Manual) Seg Neutrophils # Seg Neutrophils # Man Lymphocytes # (Manual) D-Dimer ABG pH POC ABG pCO2 POC ABG pO2 ABG pO2 ABG HCO3 ABG O2 Saturation ABG Base Excess ABG Oxyhemoglobin ABG Sodium ABG Chloride ABG Glucose Oxyhemoglobin Carboxyhemoglobin Sodium Potassium Chloride Carbon Dioxide BUN Creatinine Glucose POC Glucose 240 H 174 H 120 H Hemoglobin A1c Magnesium Ferritin AST ALT Alkaline Phosphatase Lactate Dehydrogenase C-Reactive Protein Total Protein Albumin Arterial Blood Glucose Coronavirus (PCR) 06/06/21 06/06/21 06/06/21 11:14 16:50 21:11 WBC MCV MCH MCHC RDW Lymph % (Auto) [place] % (Auto) Eos % (Auto) Lymph # (Auto) [place] # (Auto) Eos # (Auto) Baso # (Auto) Seg Neutrophils % Seg Neuts % (Manual) Lymphocytes % (Manual) Seg Neutrophils # Seg Neutrophils # Man Lymphocytes # (Manual) D-Dimer ABG pH POC ABG pCO2 POC ABG pO2 ABG pO2 ABG HCO3 ABG O2 Saturation ABG Base Excess ABG Oxyhemoglobin ABG Sodium ABG Chloride ABG Glucose Oxyhemoglobin Carboxyhemoglobin Sodium Potassium Chloride Carbon Dioxide BUN Creatinine Glucose POC Glucose 267 H 218 H 124 H Hemoglobin A1c Magnesium Ferritin AST ALT Alkaline Phosphatase Lactate Dehydrogenase C-Reactive Protein Total Protein Albumin Arterial Blood Glucose Coronavirus (PCR) 06/07/21 06/07/21 06/08/21 11:58 15:59 07:59 WBC MCV MCH MCHC RDW Lymph % (Auto) [place] % (Auto) Eos % (Auto) Lymph # (Auto) [place] # (Auto) Eos # (Auto) Baso # (Auto) Seg Neutrophils % Seg Neuts % (Manual) Lymphocytes % (Manual) Seg Neutrophils # Seg Neutrophils # Man Lymphocytes # (Manual) D-Dimer ABG pH POC ABG pCO2 POC ABG pO2 ABG pO2 ABG HCO3 ABG O2 Saturation ABG Base Excess ABG Oxyhemoglobin ABG Sodium ABG Chloride ABG Glucose Oxyhemoglobin Carboxyhemoglobin Sodium Potassium Chloride Carbon Dioxide BUN Creatinine Glucose POC Glucose 219 H 208 H 192 H Hemoglobin A1c Magnesium Ferritin AST ALT Alkaline Phosphatase Lactate Dehydrogenase C-Reactive Protein Total Protein Albumin Arterial Blood Glucose Coronavirus (PCR) 06/08/21 06/08/21 06/09/21 11:26 23:28 07:33 WBC MCV MCH MCHC RDW Lymph % (Auto) [place] % (Auto) Eos % (Auto) Lymph # (Auto) [place] # (Auto) Eos # (Auto) Baso # (Auto) Seg Neutrophils % Seg Neuts % (Manual) Lymphocytes % (Manual) Seg Neutrophils # Seg Neutrophils # Man Lymphocytes # (Manual) D-Dimer ABG pH POC ABG pCO2 POC ABG pO2 ABG pO2 ABG HCO3 ABG O2 Saturation ABG Base Excess ABG Oxyhemoglobin ABG Sodium ABG Chloride ABG Glucose Oxyhemoglobin Carboxyhemoglobin Sodium Potassium Chloride Carbon Dioxide BUN Creatinine Glucose POC Glucose 307 H 138 H 145 H Hemoglobin A1c Magnesium Ferritin AST ALT Alkaline Phosphatase Lactate Dehydrogenase C-Reactive Protein Total Protein Albumin Arterial Blood Glucose Coronavirus (PCR) 06/09/21 06/09/21 06/09/21 11:01 15:47 21:43 WBC MCV MCH MCHC RDW Lymph % (Auto) [place] % (Auto) Eos % (Auto) Lymph # (Auto) [place] # (Auto) Eos # (Auto) Baso # (Auto) Seg Neutrophils % Seg Neuts % (Manual) Lymphocytes % (Manual) Seg Neutrophils # Seg Neutrophils # Man Lymphocytes # (Manual) D-Dimer ABG pH POC ABG pCO2 POC ABG pO2 ABG pO2 ABG HCO3 ABG O2 Saturation ABG Base Excess ABG Oxyhemoglobin ABG Sodium ABG Chloride ABG Glucose Oxyhemoglobin Carboxyhemoglobin Sodium Potassium Chloride Carbon Dioxide BUN Creatinine Glucose POC Glucose 266 H 305 H 223 H Hemoglobin A1c Magnesium Ferritin AST ALT Alkaline Phosphatase Lactate Dehydrogenase C-Reactive Protein Total Protein Albumin Arterial Blood Glucose Coronavirus (PCR) 06/10/21 06/10/21 06/10/21 08:27 12:10 17:45 WBC MCV MCH MCHC RDW Lymph % (Auto) [place] % (Auto) Eos % (Auto) Lymph # (Auto) [place] # (Auto) Eos # (Auto) Baso # (Auto) Seg Neutrophils % Seg Neuts % (Manual) Lymphocytes % (Manual) Seg Neutrophils # Seg Neutrophils # Man Lymphocytes # (Manual) D-Dimer ABG pH POC ABG pCO2 POC ABG pO2 ABG pO2 ABG HCO3 ABG O2 Saturation ABG Base Excess ABG Oxyhemoglobin ABG Sodium ABG Chloride ABG Glucose Oxyhemoglobin Carboxyhemoglobin Sodium Potassium Chloride Carbon Dioxide BUN Creatinine Glucose POC Glucose 174 H 306 H 210 H Hemoglobin A1c Magnesium Ferritin AST ALT Alkaline Phosphatase Lactate Dehydrogenase C-Reactive Protein Total Protein Albumin Arterial Blood Glucose Coronavirus (PCR) 06/10/21 06/11/21 06/11/21 21:45 09:38 09:38 WBC MCV MCH MCHC RDW 20.9 H Lymph % (Auto) [place] % (Auto) Eos % (Auto) Lymph # (Auto) [place] # (Auto) Eos # (Auto) Baso # (Auto) Seg Neutrophils % Seg Neuts % (Manual) Lymphocytes % (Manual) Seg Neutrophils # Seg Neutrophils # Man Lymphocytes # (Manual) D-Dimer ABG pH POC ABG pCO2 POC ABG pO2 ABG pO2 ABG HCO3 ABG O2 Saturation ABG Base Excess ABG Oxyhemoglobin ABG Sodium ABG Chloride ABG Glucose Oxyhemoglobin Carboxyhemoglobin Sodium 135 L Potassium Chloride 90.8 L Carbon Dioxide 36 H BUN 29 H Creatinine 0.2 L Glucose 258 H POC Glucose 262 H Hemoglobin A1c Magnesium Ferritin AST ALT Alkaline Phosphatase Lactate Dehydrogenase C-Reactive Protein Total Protein Albumin Arterial Blood Glucose Coronavirus (PCR) 06/11/21 06/11/21 06/11/21 11:20 15:49 22:57 WBC MCV MCH MCHC RDW Lymph % (Auto) [place] % (Auto) Eos % (Auto) Lymph # (Auto) [place] # (Auto) Eos # (Auto) Baso # (Auto) Seg Neutrophils % Seg Neuts % (Manual) Lymphocytes % (Manual) Seg Neutrophils # Seg Neutrophils # Man Lymphocytes # (Manual) D-Dimer ABG pH POC ABG pCO2 POC ABG pO2 ABG pO2 ABG HCO3 ABG O2 Saturation ABG Base Excess ABG Oxyhemoglobin ABG Sodium ABG Chloride ABG Glucose Oxyhemoglobin Carboxyhemoglobin Sodium Potassium Chloride Carbon Dioxide BUN Creatinine Glucose POC Glucose 269 H 206 H 211 H Hemoglobin A1c Magnesium Ferritin AST ALT Alkaline Phosphatase Lactate Dehydrogenase C-Reactive Protein Total Protein Albumin Arterial Blood Glucose Coronavirus (PCR) 06/12/21 06/12/21 06/12/21 08:07 11:24 18:08 WBC MCV MCH MCHC RDW Lymph % (Auto) [place] % (Auto) Eos % (Auto) Lymph # (Auto) [place] # (Auto) Eos # (Auto) Baso # (Auto) Seg Neutrophils % Seg Neuts % (Manual) Lymphocytes % (Manual) Seg Neutrophils # Seg Neutrophils # Man Lymphocytes # (Manual) D-Dimer ABG pH POC ABG pCO2 POC ABG pO2 ABG pO2 ABG HCO3 ABG O2 Saturation ABG Base Excess ABG Oxyhemoglobin ABG Sodium ABG Chloride ABG Glucose Oxyhemoglobin Carboxyhemoglobin Sodium Potassium Chloride Carbon Dioxide BUN Creatinine Glucose POC Glucose 149 H 270 H 166 H Hemoglobin A1c Magnesium Ferritin AST ALT Alkaline Phosphatase Lactate Dehydrogenase C-Reactive Protein Total Protein Albumin Arterial Blood Glucose Coronavirus (PCR) 06/12/21 06/13/21 06/13/21 20:22 07:50 11:18 WBC MCV MCH MCHC RDW Lymph % (Auto) [place] % (Auto) Eos % (Auto) Lymph # (Auto) [place] # (Auto) Eos # (Auto) Baso # (Auto) Seg Neutrophils % Seg Neuts % (Manual) Lymphocytes % (Manual) Seg Neutrophils # Seg Neutrophils # Man Lymphocytes # (Manual) D-Dimer ABG pH POC ABG pCO2 POC ABG pO2 ABG pO2 ABG HCO3 ABG O2 Saturation ABG Base Excess ABG Oxyhemoglobin ABG Sodium ABG Chloride ABG Glucose Oxyhemoglobin Carboxyhemoglobin Sodium Potassium Chloride Carbon Dioxide BUN Creatinine Glucose POC Glucose 155 H 163 H 293 H Hemoglobin A1c Magnesium Ferritin AST ALT Alkaline Phosphatase Lactate Dehydrogenase C-Reactive Protein Total Protein Albumin Arterial Blood Glucose Coronavirus (PCR) 06/13/21 06/13/21 06/14/21 16:41 21:00 07:41 WBC MCV MCH MCHC RDW Lymph % (Auto) [place] % (Auto) Eos % (Auto) Lymph # (Auto) [place] # (Auto) Eos # (Auto) Baso # (Auto) Seg Neutrophils % Seg Neuts % (Manual) Lymphocytes % (Manual) Seg Neutrophils # Seg Neutrophils # Man Lymphocytes # (Manual) D-Dimer ABG pH POC ABG pCO2 POC ABG pO2 ABG pO2 ABG HCO3 ABG O2 Saturation ABG Base Excess ABG Oxyhemoglobin ABG Sodium ABG Chloride ABG Glucose Oxyhemoglobin Carboxyhemoglobin Sodium Potassium Chloride Carbon Dioxide BUN Creatinine Glucose POC Glucose 232 H 183 H 52 L Hemoglobin A1c Magnesium Ferritin AST ALT Alkaline Phosphatase Lactate Dehydrogenase C-Reactive Protein Total Protein Albumin Arterial Blood Glucose Coronavirus (PCR) 06/14/21 06/14/21 06/14/21 11:44 17:44 21:44 WBC MCV MCH MCHC RDW Lymph % (Auto) [place] % (Auto) Eos % (Auto) Lymph # (Auto) [place] # (Auto) Eos # (Auto) Baso # (Auto) Seg Neutrophils % Seg Neuts % (Manual) Lymphocytes % (Manual) Seg Neutrophils # Seg Neutrophils # Man Lymphocytes # (Manual) D-Dimer ABG pH POC ABG pCO2 POC ABG pO2 ABG pO2 ABG HCO3 ABG O2 Saturation ABG Base Excess ABG Oxyhemoglobin ABG Sodium ABG Chloride ABG Glucose Oxyhemoglobin Carboxyhemoglobin Sodium Potassium Chloride Carbon Dioxide BUN Creatinine Glucose POC Glucose 205 H 293 H 288 H Hemoglobin A1c Magnesium Ferritin AST ALT Alkaline Phosphatase Lactate Dehydrogenase C-Reactive Protein Total Protein Albumin Arterial Blood Glucose Coronavirus (PCR) 06/15/21 06/15/21 06/15/21 08:00 08:00 11:40 WBC MCV MCH 33 H MCHC 35 H RDW 20.3 H Lymph % (Auto) [place] % (Auto) Eos % (Auto) Lymph # (Auto) [place] # (Auto) Eos # (Auto) Baso # (Auto) Seg Neutrophils % Seg Neuts % (Manual) Lymphocytes % (Manual) Seg Neutrophils # Seg Neutrophils # Man Lymphocytes # (Manual) D-Dimer ABG pH POC ABG pCO2 POC ABG pO2 ABG pO2 ABG HCO3 ABG O2 Saturation ABG Base Excess ABG Oxyhemoglobin ABG Sodium ABG Chloride ABG Glucose Oxyhemoglobin Carboxyhemoglobin Sodium Potassium 3.2 L Chloride 95.3 L Carbon Dioxide 32 H BUN 23 H Creatinine 0.2 L Glucose 103 H POC Glucose 204 H Hemoglobin A1c Magnesium Ferritin AST ALT Alkaline Phosphatase Lactate Dehydrogenase C-Reactive Protein Total Protein Albumin Arterial Blood Glucose Coronavirus (PCR) 06/15/21 06/15/21 06/16/21 16:17 22:00 11:43 WBC MCV MCH MCHC RDW Lymph % (Auto) [place] % (Auto) Eos % (Auto) Lymph # (Auto) [place] # (Auto) Eos # (Auto) Baso # (Auto) Seg Neutrophils % Seg Neuts % (Manual) Lymphocytes % (Manual) Seg Neutrophils # Seg Neutrophils # Man Lymphocytes # (Manual) D-Dimer ABG pH POC ABG pCO2 POC ABG pO2 ABG pO2 ABG HCO3 ABG O2 Saturation ABG Base Excess ABG Oxyhemoglobin ABG Sodium ABG Chloride ABG Glucose Oxyhemoglobin Carboxyhemoglobin Sodium Potassium Chloride Carbon Dioxide BUN Creatinine Glucose POC Glucose 295 H 233 H 201 H Hemoglobin A1c Magnesium Ferritin AST ALT Alkaline Phosphatase Lactate Dehydrogenase C-Reactive Protein Total Protein Albumin Arterial Blood Glucose Coronavirus (PCR) 06/16/21 06/16/21 06/17/21 17:21 21:27 07:12 WBC MCV MCH MCHC RDW Lymph % (Auto) [place] % (Auto) Eos % (Auto) Lymph # (Auto) [place] # (Auto) Eos # (Auto) Baso # (Auto) Seg Neutrophils % Seg Neuts % (Manual) Lymphocytes % (Manual) Seg Neutrophils # Seg Neutrophils # Man Lymphocytes # (Manual) D-Dimer ABG pH POC ABG pCO2 POC ABG pO2 ABG pO2 ABG HCO3 ABG O2 Saturation ABG Base Excess ABG Oxyhemoglobin ABG Sodium ABG Chloride ABG Glucose Oxyhemoglobin Carboxyhemoglobin Sodium Potassium Chloride Carbon Dioxide BUN Creatinine Glucose POC Glucose 299 H 290 H 67 L Hemoglobin A1c Magnesium Ferritin AST ALT Alkaline Phosphatase Lactate Dehydrogenase C-Reactive Protein Total Protein Albumin Arterial Blood Glucose Coronavirus (PCR) 06/17/21 06/17/21 06/17/21 11:53 17:02 22:25 WBC MCV MCH MCHC RDW Lymph % (Auto) [place] % (Auto) Eos % (Auto) Lymph # (Auto) [place] # (Auto) Eos # (Auto) Baso # (Auto) Seg Neutrophils % Seg Neuts % (Manual) Lymphocytes % (Manual) Seg Neutrophils # Seg Neutrophils # Man Lymphocytes # (Manual) D-Dimer ABG pH POC ABG pCO2 POC ABG pO2 ABG pO2 ABG HCO3 ABG O2 Saturation ABG Base Excess ABG Oxyhemoglobin ABG Sodium ABG Chloride ABG Glucose Oxyhemoglobin Carboxyhemoglobin Sodium Potassium Chloride Carbon Dioxide BUN Creatinine Glucose POC Glucose 199 H 362 H 235 H Hemoglobin A1c Magnesium Ferritin AST ALT Alkaline Phosphatase Lactate Dehydrogenase C-Reactive Protein Total Protein Albumin Arterial Blood Glucose Coronavirus (PCR) 06/18/21 06/18/21 06/18/21 08:00 11:48 16:40 WBC MCV MCH MCHC RDW Lymph % (Auto) [place] % (Auto) Eos % (Auto) Lymph # (Auto) [place] # (Auto) Eos # (Auto) Baso # (Auto) Seg Neutrophils % Seg Neuts % (Manual) Lymphocytes % (Manual) Seg Neutrophils # Seg Neutrophils # Man Lymphocytes # (Manual) D-Dimer ABG pH POC ABG pCO2 POC ABG pO2 ABG pO2 ABG HCO3 ABG O2 Saturation ABG Base Excess ABG Oxyhemoglobin ABG Sodium ABG Chloride ABG Glucose Oxyhemoglobin Carboxyhemoglobin Sodium Potassium Chloride Carbon Dioxide BUN Creatinine Glucose POC Glucose 62 L 211 H 305 H Hemoglobin A1c Magnesium Ferritin AST ALT Alkaline Phosphatase Lactate Dehydrogenase C-Reactive Protein Total Protein Albumin Arterial Blood Glucose Coronavirus (PCR) 06/18/21 06/19/21 06/19/21 21:26 07:27 11:32 WBC MCV MCH MCHC RDW Lymph % (Auto) [place] % (Auto) Eos % (Auto) Lymph # (Auto) [place] # (Auto) Eos # (Auto) Baso # (Auto) Seg Neutrophils % Seg Neuts % (Manual) Lymphocytes % (Manual) Seg Neutrophils # Seg Neutrophils # Man Lymphocytes # (Manual) D-Dimer ABG pH POC ABG pCO2 POC ABG pO2 ABG pO2 ABG HCO3 ABG O2 Saturation ABG Base Excess ABG Oxyhemoglobin ABG Sodium ABG Chloride ABG Glucose Oxyhemoglobin Carboxyhemoglobin Sodium Potassium Chloride Carbon Dioxide BUN Creatinine Glucose POC Glucose 149 H 60 L 208 H Hemoglobin A1c Magnesium Ferritin AST ALT Alkaline Phosphatase Lactate Dehydrogenase C-Reactive Protein Total Protein Albumin Arterial Blood Glucose Coronavirus (PCR) 06/19/21 06/19/21 06/20/21 16:06 22:28 07:48 WBC MCV MCH MCHC RDW Lymph % (Auto) [place] % (Auto) Eos % (Auto) Lymph # (Auto) [place] # (Auto) Eos # (Auto) Baso # (Auto) Seg Neutrophils % Seg Neuts % (Manual) Lymphocytes % (Manual) Seg Neutrophils # Seg Neutrophils # Man Lymphocytes # (Manual) D-Dimer ABG pH POC ABG pCO2 POC ABG pO2 ABG pO2 ABG HCO3 ABG O2 Saturation ABG Base Excess ABG Oxyhemoglobin ABG Sodium ABG Chloride ABG Glucose Oxyhemoglobin Carboxyhemoglobin Sodium Potassium Chloride Carbon Dioxide BUN Creatinine Glucose POC Glucose 266 H 166 H 58 L Hemoglobin A1c Magnesium Ferritin AST ALT Alkaline Phosphatase Lactate Dehydrogenase C-Reactive Protein Total Protein Albumin Arterial Blood Glucose Coronavirus (PCR) 06/20/21 06/20/21 06/20/21 09:09 11:04 16:01 WBC MCV MCH MCHC RDW Lymph % (Auto) [place] % (Auto) Eos % (Auto) Lymph # (Auto) [place] # (Auto) Eos # (Auto) Baso # (Auto) Seg Neutrophils % Seg Neuts % (Manual) Lymphocytes % (Manual) Seg Neutrophils # Seg Neutrophils # Man Lymphocytes # (Manual) D-Dimer ABG pH POC ABG pCO2 POC ABG pO2 ABG pO2 ABG HCO3 ABG O2 Saturation ABG Base Excess ABG Oxyhemoglobin ABG Sodium ABG Chloride ABG Glucose Oxyhemoglobin Carboxyhemoglobin Sodium Potassium Chloride Carbon Dioxide BUN Creatinine Glucose POC Glucose 146 H 225 H 330 H Hemoglobin A1c Magnesium Ferritin AST ALT Alkaline Phosphatase Lactate Dehydrogenase C-Reactive Protein Total Protein Albumin Arterial Blood Glucose Coronavirus (PCR) 06/20/21 06/21/21 06/21/21 20:46 06:45 06:45 WBC MCV MCH MCHC RDW 20.0 H Lymph % (Auto) [place] % (Auto) Eos % (Auto) Lymph # (Auto) [place] # (Auto) Eos # (Auto) Baso # (Auto) Seg Neutrophils % Seg Neuts % (Manual) Lymphocytes % (Manual) Seg Neutrophils # Seg Neutrophils # Man Lymphocytes # (Manual) D-Dimer ABG pH POC ABG pCO2 POC ABG pO2 ABG pO2 ABG HCO3 ABG O2 Saturation ABG Base Excess ABG Oxyhemoglobin ABG Sodium ABG Chloride ABG Glucose Oxyhemoglobin Carboxyhemoglobin Sodium Potassium 2.9 L* Chloride 95.0 L Carbon Dioxide 31 H BUN 23 H Creatinine 0.2 L Glucose 45 L POC Glucose 215 H Hemoglobin A1c Magnesium Ferritin AST ALT Alkaline Phosphatase Lactate Dehydrogenase C-Reactive Protein Total Protein Albumin Arterial Blood Glucose Coronavirus (PCR) 06/21/21 06/21/21 06/21/21 07:38 09:06 12:40 WBC MCV MCH MCHC RDW Lymph % (Auto) [place] % (Auto) Eos % (Auto) Lymph # (Auto) [place] # (Auto) Eos # (Auto) Baso # (Auto) Seg Neutrophils % Seg Neuts % (Manual) Lymphocytes % (Manual) Seg Neutrophils # Seg Neutrophils # Man Lymphocytes # (Manual) D-Dimer ABG pH POC ABG pCO2 POC ABG pO2 ABG pO2 ABG HCO3 ABG O2 Saturation ABG Base Excess ABG Oxyhemoglobin ABG Sodium ABG Chloride ABG Glucose Oxyhemoglobin Carboxyhemoglobin Sodium Potassium Chloride Carbon Dioxide BUN Creatinine Glucose POC Glucose 50 L 196 H 205 H Hemoglobin A1c Magnesium Ferritin AST ALT Alkaline Phosphatase Lactate Dehydrogenase C-Reactive Protein Total Protein Albumin Arterial Blood Glucose Coronavirus (PCR) 06/21/21 06/22/21 06/22/21 21:36 06:25 07:15 WBC MCV MCH MCHC RDW Lymph % (Auto) [place] % (Auto) Eos % (Auto) Lymph # (Auto) [place] # (Auto) Eos # (Auto) Baso # (Auto) Seg Neutrophils % Seg Neuts % (Manual) Lymphocytes % (Manual) Seg Neutrophils # Seg Neutrophils # Man Lymphocytes # (Manual) D-Dimer ABG pH POC ABG pCO2 POC ABG pO2 ABG pO2 ABG HCO3 ABG O2 Saturation ABG Base Excess ABG Oxyhemoglobin ABG Sodium ABG Chloride ABG Glucose Oxyhemoglobin Carboxyhemoglobin Sodium Potassium Chloride Carbon Dioxide BUN 20 H Creatinine 0.2 L Glucose POC Glucose 245 H 66 L Hemoglobin A1c Magnesium Ferritin AST ALT Alkaline Phosphatase Lactate Dehydrogenase C-Reactive Protein Total Protein Albumin Arterial Blood Glucose Coronavirus (PCR) 06/22/21 06/22/21 06/22/21 11:03 16:07 22:03 WBC MCV MCH MCHC RDW Lymph % (Auto) [place] % (Auto) Eos % (Auto) Lymph # (Auto) [place] # (Auto) Eos # (Auto) Baso # (Auto) Seg Neutrophils % Seg Neuts % (Manual) Lymphocytes % (Manual) Seg Neutrophils # Seg Neutrophils # Man Lymphocytes # (Manual) D-Dimer ABG pH POC ABG pCO2 POC ABG pO2 ABG pO2 ABG HCO3 ABG O2 Saturation ABG Base Excess ABG Oxyhemoglobin ABG Sodium ABG Chloride ABG Glucose Oxyhemoglobin Carboxyhemoglobin Sodium Potassium Chloride Carbon Dioxide BUN Creatinine Glucose POC Glucose 184 H 326 H 138 H Hemoglobin A1c Magnesium Ferritin AST ALT Alkaline Phosphatase Lactate Dehydrogenase C-Reactive Protein Total Protein Albumin Arterial Blood Glucose Coronavirus (PCR) 06/23/21 06/23/21 06/23/21 07:19 10:34 16:35 WBC MCV MCH MCHC RDW Lymph % (Auto) [place] % (Auto) Eos % (Auto) Lymph # (Auto) [place] # (Auto) Eos # (Auto) Baso # (Auto) Seg Neutrophils % Seg Neuts % (Manual) Lymphocytes % (Manual) Seg Neutrophils # Seg Neutrophils # Man Lymphocytes # (Manual) D-Dimer ABG pH POC ABG pCO2 POC ABG pO2 ABG pO2 ABG HCO3 ABG O2 Saturation ABG Base Excess ABG Oxyhemoglobin ABG Sodium ABG Chloride ABG Glucose Oxyhemoglobin Carboxyhemoglobin Sodium Potassium Chloride Carbon Dioxide BUN Creatinine Glucose POC Glucose 69 L 218 H 326 H Hemoglobin A1c Magnesium Ferritin AST ALT Alkaline Phosphatase Lactate Dehydrogenase C-Reactive Protein Total Protein Albumin Arterial Blood Glucose Coronavirus (PCR) 06/23/21 06/24/21 06/24/21 22:44 11:41 16:54 WBC MCV MCH MCHC RDW Lymph % (Auto) [place] % (Auto) Eos % (Auto) Lymph # (Auto) [place] # (Auto) Eos # (Auto) Baso # (Auto) Seg Neutrophils % Seg Neuts % (Manual) Lymphocytes % (Manual) Seg Neutrophils # Seg Neutrophils # Man Lymphocytes # (Manual) D-Dimer ABG pH POC ABG pCO2 POC ABG pO2 ABG pO2 ABG HCO3 ABG O2 Saturation ABG Base Excess ABG Oxyhemoglobin ABG Sodium ABG Chloride ABG Glucose Oxyhemoglobin Carboxyhemoglobin Sodium Potassium Chloride Carbon Dioxide BUN Creatinine Glucose POC Glucose 252 H 217 H 357 H Hemoglobin A1c Magnesium Ferritin AST ALT Alkaline Phosphatase Lactate Dehydrogenase C-Reactive Protein Total Protein Albumin Arterial Blood Glucose Coronavirus (PCR) 06/24/21 06/25/21 06/25/21 20:40 11:51 16:47 WBC MCV MCH MCHC RDW Lymph % (Auto) [place] % (Auto) Eos % (Auto) Lymph # (Auto) [place] # (Auto) Eos # (Auto) Baso # (Auto) Seg Neutrophils % Seg Neuts % (Manual) Lymphocytes % (Manual) Seg Neutrophils # Seg Neutrophils # Man Lymphocytes # (Manual) D-Dimer ABG pH POC ABG pCO2 POC ABG pO2 ABG pO2 ABG HCO3 ABG O2 Saturation ABG Base Excess ABG Oxyhemoglobin ABG Sodium ABG Chloride ABG Glucose Oxyhemoglobin Carboxyhemoglobin Sodium Potassium Chloride Carbon Dioxide BUN Creatinine Glucose POC Glucose 239 H 182 H 229 H Hemoglobin A1c Magnesium Ferritin AST ALT Alkaline Phosphatase Lactate Dehydrogenase C-Reactive Protein Total Protein Albumin Arterial Blood Glucose Coronavirus (PCR) 06/25/21 06/26/21 06/26/21 22:27 07:20 12:19 WBC MCV MCH MCHC RDW Lymph % (Auto) [place] % (Auto) Eos % (Auto) Lymph # (Auto) [place] # (Auto) Eos # (Auto) Baso # (Auto) Seg Neutrophils % Seg Neuts % (Manual) Lymphocytes % (Manual) Seg Neutrophils # Seg Neutrophils # Man Lymphocytes # (Manual) D-Dimer ABG pH POC ABG pCO2 POC ABG pO2 ABG pO2 ABG HCO3 ABG O2 Saturation ABG Base Excess ABG Oxyhemoglobin ABG Sodium ABG Chloride ABG Glucose Oxyhemoglobin Carboxyhemoglobin Sodium Potassium 3.2 L D Chloride Carbon Dioxide BUN 20 H Creatinine 0.3 L Glucose POC Glucose 209 H 273 H Hemoglobin A1c Magnesium Ferritin AST ALT 77 H Alkaline Phosphatase Lactate Dehydrogenase C-Reactive Protein Total Protein Albumin 3.3 L Arterial Blood Glucose Coronavirus (PCR) 06/26/21 06/26/21 06/27/21 16:52 20:55 07:14 WBC MCV MCH MCHC RDW Lymph % (Auto) [place] % (Auto) Eos % (Auto) Lymph # (Auto) [place] # (Auto) Eos # (Auto) Baso # (Auto) Seg Neutrophils % Seg Neuts % (Manual) Lymphocytes % (Manual) Seg Neutrophils # Seg Neutrophils # Man Lymphocytes # (Manual) D-Dimer ABG pH POC ABG pCO2 POC ABG pO2 ABG pO2 ABG HCO3 ABG O2 Saturation ABG Base Excess ABG Oxyhemoglobin ABG Sodium ABG Chloride ABG Glucose Oxyhemoglobin Carboxyhemoglobin Sodium Potassium Chloride Carbon Dioxide 31 H BUN 19 H Creatinine 0.2 L Glucose 112 H POC Glucose 326 H 220 H Hemoglobin A1c Magnesium Ferritin AST ALT Alkaline Phosphatase Lactate Dehydrogenase C-Reactive Protein Total Protein Albumin Arterial Blood Glucose Coronavirus (PCR) 06/27/21 06/27/21 06/27/21 07:29 10:54 15:49 WBC MCV MCH MCHC RDW Lymph % (Auto) [place] % (Auto) Eos % (Auto) Lymph # (Auto) [place] # (Auto) Eos # (Auto) Baso # (Auto) Seg Neutrophils % Seg Neuts % (Manual) Lymphocytes % (Manual) Seg Neutrophils # Seg Neutrophils # Man Lymphocytes # (Manual) D-Dimer ABG pH POC ABG pCO2 POC ABG pO2 ABG pO2 ABG HCO3 ABG O2 Saturation ABG Base Excess ABG Oxyhemoglobin ABG Sodium ABG Chloride ABG Glucose Oxyhemoglobin Carboxyhemoglobin Sodium Potassium Chloride Carbon Dioxide BUN Creatinine Glucose POC Glucose 115 H 228 H 240 H Hemoglobin A1c Magnesium Ferritin AST ALT Alkaline Phosphatase Lactate Dehydrogenase C-Reactive Protein Total Protein Albumin Arterial Blood Glucose Coronavirus (PCR) 06/28/21 06/28/21 06/28/21 05:43 05:43 07:13 WBC MCV MCH 33 H MCHC RDW 19.8 H Lymph % (Auto) [place] % (Auto) Eos % (Auto) Lymph # (Auto) [place] # (Auto) Eos # (Auto) Baso # (Auto) Seg Neutrophils % Seg Neuts % (Manual) Lymphocytes % (Manual) Seg Neutrophils # Seg Neutrophils # Man Lymphocytes # (Manual) D-Dimer ABG pH POC ABG pCO2 POC ABG pO2 ABG pO2 ABG HCO3 ABG O2 Saturation ABG Base Excess ABG Oxyhemoglobin ABG Sodium ABG Chloride ABG Glucose Oxyhemoglobin Carboxyhemoglobin Sodium Potassium 3.3 L Chloride Carbon Dioxide BUN 22 H Creatinine 0.2 L Glucose POC Glucose 69 L Hemoglobin A1c Magnesium Ferritin AST ALT 63 H Alkaline Phosphatase Lactate Dehydrogenase C-Reactive Protein Total Protein Albumin 3.3 L Arterial Blood Glucose Coronavirus (PCR) 06/28/21 06/28/21 06/28/21 12:18 15:37 21:01 WBC MCV MCH MCHC RDW Lymph % (Auto) [place] % (Auto) Eos % (Auto) Lymph # (Auto) [place] # (Auto) Eos # (Auto) Baso # (Auto) Seg Neutrophils % Seg Neuts % (Manual) Lymphocytes % (Manual) Seg Neutrophils # Seg Neutrophils # Man Lymphocytes # (Manual) D-Dimer ABG pH POC ABG pCO2 POC ABG pO2 ABG pO2 ABG HCO3 ABG O2 Saturation ABG Base Excess ABG Oxyhemoglobin ABG Sodium ABG Chloride ABG Glucose Oxyhemoglobin Carboxyhemoglobin Sodium Potassium Chloride Carbon Dioxide BUN Creatinine Glucose POC Glucose 154 H 201 H 191 H Hemoglobin A1c Magnesium Ferritin AST ALT Alkaline Phosphatase Lactate Dehydrogenase C-Reactive Protein Total Protein Albumin Arterial Blood Glucose Coronavirus (PCR) 06/29/21 06/29/21 06/29/21 11:55 15:47 21:06 WBC MCV MCH MCHC RDW Lymph % (Auto) [place] % (Auto) Eos % (Auto) Lymph # (Auto) [place] # (Auto) Eos # (Auto) Baso # (Auto) Seg Neutrophils % Seg Neuts % (Manual) Lymphocytes % (Manual) Seg Neutrophils # Seg Neutrophils # Man Lymphocytes # (Manual) D-Dimer ABG pH POC ABG pCO2 POC ABG pO2 ABG pO2 ABG HCO3 ABG O2 Saturation ABG Base Excess ABG Oxyhemoglobin ABG Sodium ABG Chloride ABG Glucose Oxyhemoglobin Carboxyhemoglobin Sodium Potassium Chloride Carbon Dioxide BUN Creatinine Glucose POC Glucose 238 H 249 H 155 H Hemoglobin A1c Magnesium Ferritin AST ALT Alkaline Phosphatase Lactate Dehydrogenase C-Reactive Protein Total Protein Albumin Arterial Blood Glucose Coronavirus (PCR) 06/30/21 06/30/21 06/30/21 04:00 07:50 11:50 WBC MCV MCH MCHC RDW Lymph % (Auto) [place] % (Auto) Eos % (Auto) Lymph # (Auto) [place] # (Auto) Eos # (Auto) Baso # (Auto) Seg Neutrophils % Seg Neuts % (Manual) Lymphocytes % (Manual) Seg Neutrophils # Seg Neutrophils # Man Lymphocytes # (Manual) D-Dimer ABG pH POC ABG pCO2 POC ABG pO2 ABG pO2 ABG HCO3 ABG O2 Saturation ABG Base Excess ABG Oxyhemoglobin ABG Sodium ABG Chloride ABG Glucose Oxyhemoglobin Carboxyhemoglobin Sodium Potassium 3.5 L Chloride Carbon Dioxide BUN 18 H Creatinine 0.3 L Glucose 111 H POC Glucose 117 H 250 H Hemoglobin A1c Magnesium Ferritin AST ALT Alkaline Phosphatase Lactate Dehydrogenase C-Reactive Protein Total Protein Albumin Arterial Blood Glucose Coronavirus (PCR) 06/30/21 06/30/21 07/01/21 16:05 21:02 07:26 WBC MCV MCH MCHC RDW Lymph % (Auto) [place] % (Auto) Eos % (Auto) Lymph # (Auto) [place] # (Auto) Eos # (Auto) Baso # (Auto) Seg Neutrophils % Seg Neuts % (Manual) Lymphocytes % (Manual) Seg Neutrophils # Seg Neutrophils # Man Lymphocytes # (Manual) D-Dimer ABG pH POC ABG pCO2 POC ABG pO2 ABG pO2 ABG HCO3 ABG O2 Saturation ABG Base Excess ABG Oxyhemoglobin ABG Sodium ABG Chloride ABG Glucose Oxyhemoglobin Carboxyhemoglobin Sodium Potassium Chloride Carbon Dioxide BUN Creatinine Glucose POC Glucose 250 H 217 H 111 H Hemoglobin A1c Magnesium Ferritin AST ALT Alkaline Phosphatase Lactate Dehydrogenase C-Reactive Protein Total Protein Albumin Arterial Blood Glucose Coronavirus (PCR) 07/01/21 07/01/21 07/01/21 11:06 15:48 21:31 WBC MCV MCH MCHC RDW Lymph % (Auto) [place] % (Auto) Eos % (Auto) Lymph # (Auto) [place] # (Auto) Eos # (Auto) Baso # (Auto) Seg Neutrophils % Seg Neuts % (Manual) Lymphocytes % (Manual) Seg Neutrophils # Seg Neutrophils # Man Lymphocytes # (Manual) D-Dimer ABG pH POC ABG pCO2 POC ABG pO2 ABG pO2 ABG HCO3 ABG O2 Saturation ABG Base Excess ABG Oxyhemoglobin ABG Sodium ABG Chloride ABG Glucose Oxyhemoglobin Carboxyhemoglobin Sodium Potassium Chloride Carbon Dioxide BUN Creatinine Glucose POC Glucose 229 H 239 H 199 H Hemoglobin A1c Magnesium Ferritin AST ALT Alkaline Phosphatase Lactate Dehydrogenase C-Reactive Protein Total Protein Albumin Arterial Blood Glucose Coronavirus (PCR) 07/02/21 07/02/21 07/02/21 11:50 16:44 21:49 WBC MCV MCH MCHC RDW Lymph % (Auto) [place] % (Auto) Eos % (Auto) Lymph # (Auto) [place] # (Auto) Eos # (Auto) Baso # (Auto) Seg Neutrophils % Seg Neuts % (Manual) Lymphocytes % (Manual) Seg Neutrophils # Seg Neutrophils # Man Lymphocytes # (Manual) D-Dimer ABG pH POC ABG pCO2 POC ABG pO2 ABG pO2 ABG HCO3 ABG O2 Saturation ABG Base Excess ABG Oxyhemoglobin ABG Sodium ABG Chloride ABG Glucose Oxyhemoglobin Carboxyhemoglobin Sodium Potassium Chloride Carbon Dioxide BUN Creatinine Glucose POC Glucose 230 H 203 H 197 H Hemoglobin A1c Magnesium Ferritin AST ALT Alkaline Phosphatase Lactate Dehydrogenase C-Reactive Protein Total Protein Albumin Arterial Blood Glucose Coronavirus (PCR) 07/03/21 07/03/21 07/03/21 05:46 05:46 11:59 WBC MCV MCH MCHC RDW 19.6 H Lymph % (Auto) [place] % (Auto) Eos % (Auto) Lymph # (Auto) [place] # (Auto) Eos # (Auto) Baso # (Auto) Seg Neutrophils % Seg Neuts % (Manual) Lymphocytes % (Manual) Seg Neutrophils # Seg Neutrophils # Man Lymphocytes # (Manual) D-Dimer ABG pH POC ABG pCO2 POC ABG pO2 ABG pO2 ABG HCO3 ABG O2 Saturation ABG Base Excess ABG Oxyhemoglobin ABG Sodium ABG Chloride ABG Glucose Oxyhemoglobin Carboxyhemoglobin Sodium Potassium 3.2 L Chloride Carbon Dioxide BUN Creatinine 0.3 L Glucose POC Glucose 145 H Hemoglobin A1c Magnesium Ferritin AST ALT Alkaline Phosphatase Lactate Dehydrogenase C-Reactive Protein Total Protein Albumin Arterial Blood Glucose Coronavirus (PCR) 07/03/21 07/03/21 07/04/21 16:40 22:00 06:35 WBC MCV MCH MCHC RDW Lymph % (Auto) [place] % (Auto) Eos % (Auto) Lymph # (Auto) [place] # (Auto) Eos # (Auto) Baso # (Auto) Seg Neutrophils % Seg Neuts % (Manual) Lymphocytes % (Manual) Seg Neutrophils # Seg Neutrophils # Man Lymphocytes # (Manual) D-Dimer ABG pH POC ABG pCO2 POC ABG pO2 ABG pO2 ABG HCO3 ABG O2 Saturation ABG Base Excess ABG Oxyhemoglobin ABG Sodium ABG Chloride ABG Glucose Oxyhemoglobin Carboxyhemoglobin Sodium Potassium Chloride Carbon Dioxide BUN Creatinine 0.3 L Glucose 118 H POC Glucose 176 H 127 H Hemoglobin A1c Magnesium Ferritin AST ALT Alkaline Phosphatase Lactate Dehydrogenase C-Reactive Protein Total Protein Albumin Arterial Blood Glucose Coronavirus (PCR) 07/04/21 07/04/21 07/05/21 12:30 16:38 08:37 WBC MCV MCH MCHC RDW Lymph % (Auto) [place] % (Auto) Eos % (Auto) Lymph # (Auto) [place] # (Auto) Eos # (Auto) Baso # (Auto) Seg Neutrophils % Seg Neuts % (Manual) Lymphocytes % (Manual) Seg Neutrophils # Seg Neutrophils # Man Lymphocytes # (Manual) D-Dimer ABG pH POC ABG pCO2 POC ABG pO2 ABG pO2 ABG HCO3 ABG O2 Saturation ABG Base Excess ABG Oxyhemoglobin ABG Sodium ABG Chloride ABG Glucose Oxyhemoglobin Carboxyhemoglobin Sodium Potassium Chloride Carbon Dioxide BUN Creatinine Glucose POC Glucose 162 H 205 H 115 H Hemoglobin A1c Magnesium Ferritin AST ALT Alkaline Phosphatase Lactate Dehydrogenase C-Reactive Protein Total Protein Albumin Arterial Blood Glucose Coronavirus (PCR) 07/05/21 07/05/21 07/05/21 10:57 16:42 21:14 WBC MCV MCH MCHC RDW Lymph % (Auto) [place] % (Auto) Eos % (Auto) Lymph # (Auto) [place] # (Auto) Eos # (Auto) Baso # (Auto) Seg Neutrophils % Seg Neuts % (Manual) Lymphocytes % (Manual) Seg Neutrophils # Seg Neutrophils # Man Lymphocytes # (Manual) D-Dimer ABG pH POC ABG pCO2 POC ABG pO2 ABG pO2 ABG HCO3 ABG O2 Saturation ABG Base Excess ABG Oxyhemoglobin ABG Sodium ABG Chloride ABG Glucose Oxyhemoglobin Carboxyhemoglobin Sodium Potassium Chloride Carbon Dioxide BUN Creatinine Glucose POC Glucose 151 H 184 H 130 H Hemoglobin A1c Magnesium Ferritin AST ALT Alkaline Phosphatase Lactate Dehydrogenase C-Reactive Protein Total Protein Albumin Arterial Blood Glucose Coronavirus (PCR) 07/06/21 07/06/21 07/06/21 07:31 11:49 16:46 WBC MCV MCH MCHC RDW Lymph % (Auto) [place] % (Auto) Eos % (Auto) Lymph # (Auto) [place] # (Auto) Eos # (Auto) Baso # (Auto) Seg Neutrophils % Seg Neuts % (Manual) Lymphocytes % (Manual) Seg Neutrophils # Seg Neutrophils # Man Lymphocytes # (Manual) D-Dimer ABG pH POC ABG pCO2 POC ABG pO2 ABG pO2 ABG HCO3 ABG O2 Saturation ABG Base Excess ABG Oxyhemoglobin ABG Sodium ABG Chloride ABG Glucose Oxyhemoglobin Carboxyhemoglobin Sodium Potassium Chloride Carbon Dioxide BUN Creatinine Glucose POC Glucose 106 H 173 H 205 H Hemoglobin A1c Magnesium Ferritin AST ALT Alkaline Phosphatase Lactate Dehydrogenase C-Reactive Protein Total Protein Albumin Arterial Blood Glucose Coronavirus (PCR) 07/06/21 07/07/21 07/07/21 21:38 06:00 06:00 WBC 16.1 H MCV MCH MCHC RDW 18.8 H Lymph % (Auto) [place] % (Auto) Eos % (Auto) Lymph # (Auto) [place] # (Auto) 1.1 H Eos # (Auto) Baso # (Auto) 0.2 H Seg Neutrophils % 74.9 H Seg Neuts % (Manual) Lymphocytes % (Manual) Seg Neutrophils # 12.1 H Seg Neutrophils # Man Lymphocytes # (Manual) D-Dimer ABG pH POC ABG pCO2 POC ABG pO2 ABG pO2 ABG HCO3 ABG O2 Saturation ABG Base Excess ABG Oxyhemoglobin ABG Sodium ABG Chloride ABG Glucose Oxyhemoglobin Carboxyhemoglobin Sodium Potassium 3.5 L D Chloride Carbon Dioxide BUN 6 L Creatinine < 0.2 L Glucose 106 H POC Glucose 120 H Hemoglobin A1c Magnesium Ferritin AST ALT Alkaline Phosphatase Lactate Dehydrogenase C-Reactive Protein Total Protein Albumin Arterial Blood Glucose Coronavirus (PCR) 07/07/21 07/07/21 07/07/21 07:10 11:53 15:53 WBC MCV MCH MCHC RDW Lymph % (Auto) [place] % (Auto) Eos % (Auto) Lymph # (Auto) [place] # (Auto) Eos # (Auto) Baso # (Auto) Seg Neutrophils % Seg Neuts % (Manual) Lymphocytes % (Manual) Seg Neutrophils # Seg Neutrophils # Man Lymphocytes # (Manual) D-Dimer ABG pH POC ABG pCO2 POC ABG pO2 ABG pO2 ABG HCO3 ABG O2 Saturation ABG Base Excess ABG Oxyhemoglobin ABG Sodium ABG Chloride ABG Glucose Oxyhemoglobin Carboxyhemoglobin Sodium Potassium Chloride Carbon Dioxide BUN Creatinine Glucose POC Glucose 132 H 169 H 242 H Hemoglobin A1c Magnesium Ferritin AST ALT Alkaline Phosphatase Lactate Dehydrogenase C-Reactive Protein Total Protein Albumin Arterial Blood Glucose Coronavirus (PCR) 07/07/21 07/08/21 07/08/21 21:41 08:09 12:20 WBC MCV MCH MCHC RDW Lymph % (Auto) [place] % (Auto) Eos % (Auto) Lymph # (Auto) [place] # (Auto) Eos # (Auto) Baso # (Auto) Seg Neutrophils % Seg Neuts % (Manual) Lymphocytes % (Manual) Seg Neutrophils # Seg Neutrophils # Man Lymphocytes # (Manual) D-Dimer ABG pH POC ABG pCO2 POC ABG pO2 ABG pO2 ABG HCO3 ABG O2 Saturation ABG Base Excess ABG Oxyhemoglobin ABG Sodium ABG Chloride ABG Glucose Oxyhemoglobin Carboxyhemoglobin Sodium Potassium Chloride Carbon Dioxide BUN Creatinine Glucose POC Glucose 128 H 132 H 179 H Hemoglobin A1c Magnesium Ferritin AST ALT Alkaline Phosphatase Lactate Dehydrogenase C-Reactive Protein Total Protein Albumin Arterial Blood Glucose Coronavirus (PCR) 07/08/21 07/08/21 07/08/21 16:37 21:45 22:44 WBC MCV MCH MCHC RDW Lymph % (Auto) [place] % (Auto) Eos % (Auto) Lymph # (Auto) [place] # (Auto) Eos # (Auto) Baso # (Auto) Seg Neutrophils % Seg Neuts % (Manual) Lymphocytes % (Manual) Seg Neutrophils # Seg Neutrophils # Man Lymphocytes # (Manual) D-Dimer ABG pH POC ABG pCO2 POC ABG pO2 ABG pO2 ABG HCO3 ABG O2 Saturation ABG Base Excess ABG Oxyhemoglobin ABG Sodium ABG Chloride ABG Glucose Oxyhemoglobin Carboxyhemoglobin Sodium Potassium Chloride Carbon Dioxide BUN Creatinine Glucose POC Glucose 192 H 51 L 137 H Hemoglobin A1c Magnesium Ferritin AST ALT Alkaline Phosphatase Lactate Dehydrogenase C-Reactive Protein Total Protein Albumin Arterial Blood Glucose Coronavirus (PCR) 07/09/21 07/09/21 07/09/21 04:45 04:45 04:45 WBC MCV MCH MCHC RDW 18.3 H Lymph % (Auto) [place] % (Auto) Eos % (Auto) Lymph # (Auto) [place] # (Auto) Eos # (Auto) Baso # (Auto) Seg Neutrophils % Seg Neuts % (Manual) 82.0 H Lymphocytes % (Manual) 13.0 L Seg Neutrophils # Seg Neutrophils # Man 7.8 H Lymphocytes # (Manual) D-Dimer 638.35 H ABG pH POC ABG pCO2 POC ABG pO2 ABG pO2 ABG HCO3 ABG O2 Saturation ABG Base Excess ABG Oxyhemoglobin ABG Sodium ABG Chloride ABG Glucose Oxyhemoglobin Carboxyhemoglobin Sodium Potassium Chloride 96.9 L Carbon Dioxide 35 H BUN Creatinine 0.2 L Glucose 135 H POC Glucose Hemoglobin A1c Magnesium Ferritin AST ALT Alkaline Phosphatase Lactate Dehydrogenase C-Reactive Protein 4.30 H Total Protein Albumin Arterial Blood Glucose Coronavirus (PCR) 07/09/21 07/09/21 07/09/21 05:19 07:36 11:16 WBC MCV MCH MCHC RDW Lymph % (Auto) [place] % (Auto) Eos % (Auto) Lymph # (Auto) [place] # (Auto) Eos # (Auto) Baso # (Auto) Seg Neutrophils % Seg Neuts % (Manual) Lymphocytes % (Manual) Seg Neutrophils # Seg Neutrophils # Man Lymphocytes # (Manual) D-Dimer ABG pH POC ABG pCO2 POC ABG pO2 ABG pO2 ABG HCO3 ABG O2 Saturation ABG Base Excess ABG Oxyhemoglobin ABG Sodium ABG Chloride ABG Glucose Oxyhemoglobin Carboxyhemoglobin Sodium Potassium Chloride Carbon Dioxide BUN Creatinine Glucose POC Glucose 135 H 148 H 212 H Hemoglobin A1c Magnesium Ferritin AST ALT Alkaline Phosphatase Lactate Dehydrogenase C-Reactive Protein Total Protein Albumin Arterial Blood Glucose Coronavirus (PCR) 07/09/21 07/09/21 07/10/21 15:21 21:12 05:40 WBC MCV MCH MCHC RDW Lymph % (Auto) [place] % (Auto) Eos % (Auto) Lymph # (Auto) [place] # (Auto) Eos # (Auto) Baso # (Auto) Seg Neutrophils % Seg Neuts % (Manual) Lymphocytes % (Manual) Seg Neutrophils # Seg Neutrophils # Man Lymphocytes # (Manual) D-Dimer ABG pH POC ABG pCO2 POC ABG pO2 ABG pO2 ABG HCO3 ABG O2 Saturation ABG Base Excess ABG Oxyhemoglobin ABG Sodium ABG Chloride ABG Glucose Oxyhemoglobin Carboxyhemoglobin Sodium Potassium 3.3 L Chloride 95.1 L Carbon Dioxide 39 H BUN Creatinine 0.2 L Glucose 122 H POC Glucose 128 H 196 H Hemoglobin A1c Magnesium Ferritin AST ALT Alkaline Phosphatase Lactate Dehydrogenase C-Reactive Protein Total Protein Albumin Arterial Blood Glucose Coronavirus (PCR) 07/10/21 07/10/21 07/10/21 07:38 11:15 16:29 WBC MCV MCH MCHC RDW Lymph % (Auto) [place] % (Auto) Eos % (Auto) Lymph # (Auto) [place] # (Auto) Eos # (Auto) Baso # (Auto) Seg Neutrophils % Seg Neuts % (Manual) Lymphocytes % (Manual) Seg Neutrophils # Seg Neutrophils # Man Lymphocytes # (Manual) D-Dimer ABG pH POC ABG pCO2 POC ABG pO2 ABG pO2 ABG HCO3 ABG O2 Saturation ABG Base Excess ABG Oxyhemoglobin ABG Sodium ABG Chloride ABG Glucose Oxyhemoglobin Carboxyhemoglobin Sodium Potassium Chloride Carbon Dioxide BUN Creatinine Glucose POC Glucose 128 H 175 H 174 H Hemoglobin A1c Magnesium Ferritin AST ALT Alkaline Phosphatase Lactate Dehydrogenase C-Reactive Protein Total Protein Albumin Arterial Blood Glucose Coronavirus (PCR) 07/10/21 07/11/21 07/11/21 20:49 05:50 12:08 WBC MCV MCH MCHC RDW Lymph % (Auto) [place] % (Auto) Eos % (Auto) Lymph # (Auto) [place] # (Auto) Eos # (Auto) Baso # (Auto) Seg Neutrophils % Seg Neuts % (Manual) Lymphocytes % (Manual) Seg Neutrophils # Seg Neutrophils # Man Lymphocytes # (Manual) D-Dimer ABG pH POC ABG pCO2 POC ABG pO2 ABG pO2 ABG HCO3 ABG O2 Saturation ABG Base Excess ABG Oxyhemoglobin ABG Sodium ABG Chloride ABG Glucose Oxyhemoglobin Carboxyhemoglobin Sodium Potassium Chloride 97.3 L Carbon Dioxide 34 H BUN Creatinine 0.2 L Glucose 109 H POC Glucose 142 H 220 H Hemoglobin A1c Magnesium Ferritin AST ALT Alkaline Phosphatase Lactate Dehydrogenase C-Reactive Protein Total Protein Albumin Arterial Blood Glucose Coronavirus (PCR) 07/11/21 07/11/21 07/12/21 17:09 21:55 07:36 WBC MCV MCH MCHC RDW Lymph % (Auto) [place] % (Auto) Eos % (Auto) Lymph # (Auto) [place] # (Auto) Eos # (Auto) Baso # (Auto) Seg Neutrophils % Seg Neuts % (Manual) Lymphocytes % (Manual) Seg Neutrophils # Seg Neutrophils # Man Lymphocytes # (Manual) D-Dimer ABG pH POC ABG pCO2 POC ABG pO2 ABG pO2 ABG HCO3 ABG O2 Saturation ABG Base Excess ABG Oxyhemoglobin ABG Sodium ABG Chloride ABG Glucose Oxyhemoglobin Carboxyhemoglobin Sodium Potassium Chloride Carbon Dioxide BUN Creatinine Glucose POC Glucose 219 H 124 H 114 H Hemoglobin A1c Magnesium Ferritin AST ALT Alkaline Phosphatase Lactate Dehydrogenase C-Reactive Protein Total Protein Albumin Arterial Blood Glucose Coronavirus (PCR) 07/12/21 07/12/21 07/12/21 11:08 15:43 22:20 WBC MCV MCH MCHC RDW Lymph % (Auto) [place] % (Auto) Eos % (Auto) Lymph # (Auto) [place] # (Auto) Eos # (Auto) Baso # (Auto) Seg Neutrophils % Seg Neuts % (Manual) Lymphocytes % (Manual) Seg Neutrophils # Seg Neutrophils # Man Lymphocytes # (Manual) D-Dimer ABG pH POC ABG pCO2 POC ABG pO2 ABG pO2 ABG HCO3 ABG O2 Saturation ABG Base Excess ABG Oxyhemoglobin ABG Sodium ABG Chloride ABG Glucose Oxyhemoglobin Carboxyhemoglobin Sodium Potassium Chloride Carbon Dioxide BUN Creatinine Glucose POC Glucose 195 H 276 H 189 H Hemoglobin A1c Magnesium Ferritin AST ALT Alkaline Phosphatase Lactate Dehydrogenase C-Reactive Protein Total Protein Albumin Arterial Blood Glucose Coronavirus (PCR) 07/13/21 07/13/21 07/13/21 08:01 08:08 10:17 WBC MCV MCH MCHC RDW Lymph % (Auto) [place] % (Auto) Eos % (Auto) Lymph # (Auto) [place] # (Auto) Eos # (Auto) Baso # (Auto) Seg Neutrophils % Seg Neuts % (Manual) Lymphocytes % (Manual) Seg Neutrophils # Seg Neutrophils # Man Lymphocytes # (Manual) D-Dimer ABG pH POC ABG pCO2 POC ABG pO2 ABG pO2 ABG HCO3 ABG O2 Saturation ABG Base Excess ABG Oxyhemoglobin ABG Sodium ABG Chloride ABG Glucose Oxyhemoglobin Carboxyhemoglobin Sodium Potassium Chloride 94.4 L Carbon Dioxide 34 H BUN Creatinine 0.3 L Glucose 149 H POC Glucose 132 H 265 H Hemoglobin A1c Magnesium Ferritin AST ALT Alkaline Phosphatase Lactate Dehydrogenase C-Reactive Protein Total Protein Albumin Arterial Blood Glucose Coronavirus (PCR) 07/13/21 07/13/21 07/14/21 17:58 21:41 07:34 WBC MCV MCH MCHC RDW Lymph % (Auto) [place] % (Auto) Eos % (Auto) Lymph # (Auto) [place] # (Auto) Eos # (Auto) Baso # (Auto) Seg Neutrophils % Seg Neuts % (Manual) Lymphocytes % (Manual) Seg Neutrophils # Seg Neutrophils # Man Lymphocytes # (Manual) D-Dimer ABG pH POC ABG pCO2 POC ABG pO2 ABG pO2 ABG HCO3 ABG O2 Saturation ABG Base Excess ABG Oxyhemoglobin ABG Sodium ABG Chloride ABG Glucose Oxyhemoglobin Carboxyhemoglobin Sodium Potassium Chloride Carbon Dioxide BUN Creatinine Glucose POC Glucose 217 H 223 H 116 H Hemoglobin A1c Magnesium Ferritin AST ALT Alkaline Phosphatase Lactate Dehydrogenase C-Reactive Protein Total Protein Albumin Arterial Blood Glucose Coronavirus (PCR) 07/14/21 07/14/21 07/14/21 10:50 17:33 20:51 WBC MCV MCH MCHC RDW Lymph % (Auto) [place] % (Auto) Eos % (Auto) Lymph # (Auto) [place] # (Auto) Eos # (Auto) Baso # (Auto) Seg Neutrophils % Seg Neuts % (Manual) Lymphocytes % (Manual) Seg Neutrophils # Seg Neutrophils # Man Lymphocytes # (Manual) D-Dimer ABG pH POC ABG pCO2 POC ABG pO2 ABG pO2 ABG HCO3 ABG O2 Saturation ABG Base Excess ABG Oxyhemoglobin ABG Sodium ABG Chloride ABG Glucose Oxyhemoglobin Carboxyhemoglobin Sodium Potassium Chloride Carbon Dioxide BUN Creatinine Glucose POC Glucose 191 H 173 H 132 H Hemoglobin A1c Magnesium Ferritin AST ALT Alkaline Phosphatase Lactate Dehydrogenase C-Reactive Protein Total Protein Albumin Arterial Blood Glucose Coronavirus (PCR) 07/15/21 07/15/21 07/15/21 04:00 07:59 12:31 WBC MCV MCH MCHC RDW Lymph % (Auto) [place] % (Auto) Eos % (Auto) Lymph # (Auto) [place] # (Auto) Eos # (Auto) Baso # (Auto) Seg Neutrophils % Seg Neuts % (Manual) Lymphocytes % (Manual) Seg Neutrophils # Seg Neutrophils # Man Lymphocytes # (Manual) D-Dimer ABG pH POC ABG pCO2 POC ABG pO2 ABG pO2 ABG HCO3 ABG O2 Saturation ABG Base Excess ABG Oxyhemoglobin ABG Sodium ABG Chloride ABG Glucose Oxyhemoglobin Carboxyhemoglobin Sodium Potassium Chloride 96.0 L Carbon Dioxide 32 H BUN Creatinine 0.3 L Glucose 208 H POC Glucose 117 H 195 H Hemoglobin A1c Magnesium Ferritin AST ALT Alkaline Phosphatase Lactate Dehydrogenase C-Reactive Protein Total Protein Albumin Arterial Blood Glucose Coronavirus (PCR) 07/15/21 07/15/21 07/16/21 18:00 20:57 04:40 WBC MCV MCH MCHC RDW 17.1 H Lymph % (Auto) [place] % (Auto) Eos % (Auto) Lymph # (Auto) [place] # (Auto) Eos # (Auto) Baso # (Auto) Seg Neutrophils % Seg Neuts % (Manual) Lymphocytes % (Manual) Seg Neutrophils # Seg Neutrophils # Man Lymphocytes # (Manual) D-Dimer ABG pH POC ABG pCO2 POC ABG pO2 ABG pO2 ABG HCO3 ABG O2 Saturation ABG Base Excess ABG Oxyhemoglobin ABG Sodium ABG Chloride ABG Glucose Oxyhemoglobin Carboxyhemoglobin Sodium Potassium Chloride Carbon Dioxide BUN Creatinine Glucose POC Glucose 217 H 111 H Hemoglobin A1c Magnesium Ferritin AST ALT Alkaline Phosphatase Lactate Dehydrogenase C-Reactive Protein Total Protein Albumin Arterial Blood Glucose Coronavirus (PCR) 07/16/21 07/16/21 07/16/21 04:40 07:08 11:11 WBC MCV MCH MCHC RDW Lymph % (Auto) [place] % (Auto) Eos % (Auto) Lymph # (Auto) [place] # (Auto) Eos # (Auto) Baso # (Auto) Seg Neutrophils % Seg Neuts % (Manual) Lymphocytes % (Manual) Seg Neutrophils # Seg Neutrophils # Man Lymphocytes # (Manual) D-Dimer ABG pH POC ABG pCO2 POC ABG pO2 ABG pO2 ABG HCO3 ABG O2 Saturation ABG Base Excess ABG Oxyhemoglobin ABG Sodium ABG Chloride ABG Glucose Oxyhemoglobin Carboxyhemoglobin Sodium Potassium 3.4 L Chloride 94.6 L Carbon Dioxide 36 H BUN Creatinine < 0.2 L Glucose 101 H POC Glucose 118 H 184 H Hemoglobin A1c Magnesium Ferritin AST ALT Alkaline Phosphatase Lactate Dehydrogenase C-Reactive Protein Total Protein Albumin Arterial Blood Glucose Coronavirus (PCR) 07/16/21 07/16/21 07/17/21 17:29 22:01 08:10 WBC MCV MCH MCHC RDW Lymph % (Auto) [place] % (Auto) Eos % (Auto) Lymph # (Auto) [place] # (Auto) Eos # (Auto) Baso # (Auto) Seg Neutrophils % Seg Neuts % (Manual) Lymphocytes % (Manual) Seg Neutrophils # Seg Neutrophils # Man Lymphocytes # (Manual) D-Dimer ABG pH POC ABG pCO2 POC ABG pO2 ABG pO2 ABG HCO3 ABG O2 Saturation ABG Base Excess ABG Oxyhemoglobin ABG Sodium ABG Chloride ABG Glucose Oxyhemoglobin Carboxyhemoglobin Sodium Potassium Chloride Carbon Dioxide BUN Creatinine Glucose POC Glucose 200 H 147 H 118 H Hemoglobin A1c Magnesium Ferritin AST ALT Alkaline Phosphatase Lactate Dehydrogenase C-Reactive Protein Total Protein Albumin Arterial Blood Glucose Coronavirus (PCR) 07/17/21 07/17/21 07/17/21 11:38 16:24 21:13 WBC MCV MCH MCHC RDW Lymph % (Auto) [place] % (Auto) Eos % (Auto) Lymph # (Auto) [place] # (Auto) Eos # (Auto) Baso # (Auto) Seg Neutrophils % Seg Neuts % (Manual) Lymphocytes % (Manual) Seg Neutrophils # Seg Neutrophils # Man Lymphocytes # (Manual) D-Dimer ABG pH POC ABG pCO2 POC ABG pO2 ABG pO2 ABG HCO3 ABG O2 Saturation ABG Base Excess ABG Oxyhemoglobin ABG Sodium ABG Chloride ABG Glucose Oxyhemoglobin Carboxyhemoglobin Sodium Potassium Chloride Carbon Dioxide BUN Creatinine Glucose POC Glucose 151 H 268 H 115 H Hemoglobin A1c Magnesium Ferritin AST ALT Alkaline Phosphatase Lactate Dehydrogenase C-Reactive Protein Total Protein Albumin Arterial Blood Glucose Coronavirus (PCR) 07/18/21 07/18/21 07/18/21 07:58 12:29 20:24 WBC MCV MCH MCHC RDW Lymph % (Auto) [place] % (Auto) Eos % (Auto) Lymph # (Auto) [place] # (Auto) Eos # (Auto) Baso # (Auto) Seg Neutrophils % Seg Neuts % (Manual) Lymphocytes % (Manual) Seg Neutrophils # Seg Neutrophils # Man Lymphocytes # (Manual) D-Dimer ABG pH POC ABG pCO2 POC ABG pO2 ABG pO2 ABG HCO3 ABG O2 Saturation ABG Base Excess ABG Oxyhemoglobin ABG Sodium ABG Chloride ABG Glucose Oxyhemoglobin Carboxyhemoglobin Sodium Potassium Chloride Carbon Dioxide BUN Creatinine Glucose POC Glucose 135 H 139 H 130 H Hemoglobin A1c Magnesium Ferritin AST ALT Alkaline Phosphatase Lactate Dehydrogenase C-Reactive Protein Total Protein Albumin Arterial Blood Glucose Coronavirus (PCR) 07/19/21 07/19/21 07/19/21 06:55 06:55 07:54 WBC 14.5 H MCV MCH MCHC RDW 17.3 H Lymph % (Auto) 9.6 L [place] % (Auto) Eos % (Auto) Lymph # (Auto) [place] # (Auto) Eos # (Auto) 0.6 H Baso # (Auto) Seg Neutrophils % 80.3 H Seg Neuts % (Manual) Lymphocytes % (Manual) Seg Neutrophils # 11.7 H Seg Neutrophils # Man Lymphocytes # (Manual) D-Dimer ABG pH POC ABG pCO2 67.9 H POC ABG pO2 131.0 H ABG pO2 ABG HCO3 ABG O2 Saturation ABG Base Excess ABG Oxyhemoglobin ABG Sodium ABG Chloride 97.0 L ABG Glucose 133 H Oxyhemoglobin Carboxyhemoglobin Sodium Potassium Chloride 95.3 L Carbon Dioxide 35 H BUN Creatinine < 0.2 L Glucose 138 H POC Glucose Hemoglobin A1c Magnesium Ferritin AST ALT Alkaline Phosphatase Lactate Dehydrogenase C-Reactive Protein Total Protein Albumin Arterial Blood Glucose 133 H Coronavirus (PCR) 07/19/21 07/19/21 07/19/21 08:10 11:43 17:04 WBC MCV MCH MCHC RDW Lymph % (Auto) [place] % (Auto) Eos % (Auto) Lymph # (Auto) [place] # (Auto) Eos # (Auto) Baso # (Auto) Seg Neutrophils % Seg Neuts % (Manual) Lymphocytes % (Manual) Seg Neutrophils # Seg Neutrophils # Man Lymphocytes # (Manual) D-Dimer ABG pH POC ABG pCO2 POC ABG pO2 ABG pO2 ABG HCO3 ABG O2 Saturation ABG Base Excess ABG Oxyhemoglobin ABG Sodium ABG Chloride ABG Glucose Oxyhemoglobin Carboxyhemoglobin Sodium Potassium Chloride Carbon Dioxide BUN Creatinine Glucose POC Glucose 129 H 126 H 108 H Hemoglobin A1c Magnesium Ferritin AST ALT Alkaline Phosphatase Lactate Dehydrogenase C-Reactive Protein Total Protein Albumin Arterial Blood Glucose Coronavirus (PCR) 07/19/21 07/20/21 07/20/21 21:10 04:00 04:00 WBC MCV MCH MCHC RDW 17.0 H Lymph % (Auto) [place] % (Auto) 8.9 H Eos % (Auto) 6.3 H Lymph # (Auto) [place] # (Auto) 0.9 H Eos # (Auto) 0.6 H Baso # (Auto) Seg Neutrophils % 70.2 H Seg Neuts % (Manual) Lymphocytes % (Manual) Seg Neutrophils # Seg Neutrophils # Man Lymphocytes # (Manual) D-Dimer ABG pH POC ABG pCO2 POC ABG pO2 ABG pO2 ABG HCO3 ABG O2 Saturation ABG Base Excess ABG Oxyhemoglobin ABG Sodium ABG Chloride ABG Glucose Oxyhemoglobin Carboxyhemoglobin Sodium Potassium Chloride 96.7 L Carbon Dioxide 36 H BUN Creatinine 0.2 L Glucose 102 H POC Glucose 109 H Hemoglobin A1c Magnesium Ferritin AST ALT Alkaline Phosphatase Lactate Dehydrogenase C-Reactive Protein Total Protein Albumin 3.2 L Arterial Blood Glucose Coronavirus (PCR) 07/20/21 07/20/21 07/20/21 11:15 15:34 17:01 WBC MCV MCH MCHC RDW Lymph % (Auto) [place] % (Auto) Eos % (Auto) Lymph # (Auto) [place] # (Auto) Eos # (Auto) Baso # (Auto) Seg Neutrophils % Seg Neuts % (Manual) Lymphocytes % (Manual) Seg Neutrophils # Seg Neutrophils # Man Lymphocytes # (Manual) D-Dimer ABG pH POC ABG pCO2 POC ABG pO2 ABG pO2 ABG HCO3 ABG O2 Saturation ABG Base Excess ABG Oxyhemoglobin ABG Sodium ABG Chloride ABG Glucose Oxyhemoglobin Carboxyhemoglobin Sodium Potassium Chloride Carbon Dioxide BUN Creatinine Glucose POC Glucose 109 H 152 H 125 H Hemoglobin A1c Magnesium Ferritin AST ALT Alkaline Phosphatase Lactate Dehydrogenase C-Reactive Protein Total Protein Albumin Arterial Blood Glucose Coronavirus (PCR) 07/20/21 07/21/21 07/21/21 21:00 04:48 04:48 WBC 12.8 H MCV MCH MCHC RDW 16.8 H Lymph % (Auto) 9.3 L [place] % (Auto) Eos % (Auto) Lymph # (Auto) [place] # (Auto) 0.9 H Eos # (Auto) Baso # (Auto) Seg Neutrophils % 81.1 H Seg Neuts % (Manual) Lymphocytes % (Manual) Seg Neutrophils # 10.4 H Seg Neutrophils # Man Lymphocytes # (Manual) D-Dimer ABG pH POC ABG pCO2 POC ABG pO2 ABG pO2 ABG HCO3 ABG O2 Saturation ABG Base Excess ABG Oxyhemoglobin ABG Sodium ABG Chloride ABG Glucose Oxyhemoglobin Carboxyhemoglobin Sodium Potassium Chloride 95.4 L Carbon Dioxide 33 H BUN 6 L Creatinine < 0.2 L Glucose 155 H POC Glucose 211 H Hemoglobin A1c Magnesium 1.60 L Ferritin AST ALT Alkaline Phosphatase Lactate Dehydrogenase C-Reactive Protein Total Protein Albumin Arterial Blood Glucose Coronavirus (PCR) 07/21/21 07/21/21 07/21/21 07:52 11:05 17:01 WBC MCV MCH MCHC RDW Lymph % (Auto) [place] % (Auto) Eos % (Auto) Lymph # (Auto) [place] # (Auto) Eos # (Auto) Baso # (Auto) Seg Neutrophils % Seg Neuts % (Manual) Lymphocytes % (Manual) Seg Neutrophils # Seg Neutrophils # Man Lymphocytes # (Manual) D-Dimer ABG pH POC ABG pCO2 POC ABG pO2 ABG pO2 ABG HCO3 ABG O2 Saturation ABG Base Excess ABG Oxyhemoglobin ABG Sodium ABG Chloride ABG Glucose Oxyhemoglobin Carboxyhemoglobin Sodium Potassium Chloride Carbon Dioxide BUN Creatinine Glucose POC Glucose 116 H 207 H 133 H Hemoglobin A1c Magnesium Ferritin AST ALT Alkaline Phosphatase Lactate Dehydrogenase C-Reactive Protein Total Protein Albumin Arterial Blood Glucose Coronavirus (PCR) 07/21/21 07/22/21 07/22/21 21:17 07:55 07:55 WBC MCV MCH MCHC RDW 16.5 H Lymph % (Auto) [place] % (Auto) 8.6 H Eos % (Auto) Lymph # (Auto) [place] # (Auto) Eos # (Auto) Baso # (Auto) Seg Neutrophils % 72.3 H Seg Neuts % (Manual) Lymphocytes % (Manual) Seg Neutrophils # Seg Neutrophils # Man Lymphocytes # (Manual) D-Dimer ABG pH POC ABG pCO2 POC ABG pO2 ABG pO2 ABG HCO3 ABG O2 Saturation ABG Base Excess ABG Oxyhemoglobin ABG Sodium ABG Chloride ABG Glucose Oxyhemoglobin Carboxyhemoglobin Sodium Potassium Chloride 94.6 L Carbon Dioxide 42 H* D BUN 5 L Creatinine < 0.2 L Glucose POC Glucose 152 H Hemoglobin A1c Magnesium Ferritin AST ALT Alkaline Phosphatase Lactate Dehydrogenase C-Reactive Protein Total Protein Albumin Arterial Blood Glucose Coronavirus (PCR) 07/22/21 07/22/21 07/22/21 11:25 12:05 15:40 WBC MCV MCH MCHC RDW Lymph % (Auto) [place] % (Auto) Eos % (Auto) Lymph # (Auto) [place] # (Auto) Eos # (Auto) Baso # (Auto) Seg Neutrophils % Seg Neuts % (Manual) Lymphocytes % (Manual) Seg Neutrophils # Seg Neutrophils # Man Lymphocytes # (Manual) D-Dimer ABG pH 7.338 L POC ABG pCO2 POC ABG pO2 ABG pO2 66.1 L ABG HCO3 45.0 H ABG O2 Saturation 94.2 L ABG Base Excess 15.2 H ABG Oxyhemoglobin ABG Sodium ABG Chloride ABG Glucose Oxyhemoglobin 91.9 L Carboxyhemoglobin Sodium Potassium Chloride Carbon Dioxide BUN Creatinine Glucose POC Glucose 146 H 219 H Hemoglobin A1c Magnesium Ferritin AST ALT Alkaline Phosphatase Lactate Dehydrogenase C-Reactive Protein Total Protein Albumin Arterial Blood Glucose Coronavirus (PCR) 07/22/21 07/23/21 07/23/21 21:26 04:35 04:35 WBC MCV 98 H MCH MCHC RDW 16.2 H Lymph % (Auto) 7.9 L [place] % (Auto) Eos % (Auto) Lymph # (Auto) 0.9 L [place] # (Auto) Eos # (Auto) Baso # (Auto) Seg Neutrophils % 85.3 H Seg Neuts % (Manual) Lymphocytes % (Manual) Seg Neutrophils # 9.2 H Seg Neutrophils # Man Lymphocytes # (Manual) D-Dimer ABG pH POC ABG pCO2 POC ABG pO2 ABG pO2 ABG HCO3 ABG O2 Saturation ABG Base Excess ABG Oxyhemoglobin ABG Sodium ABG Chloride ABG Glucose Oxyhemoglobin Carboxyhemoglobin Sodium Potassium Chloride 93.9 L Carbon Dioxide 44 H* BUN Creatinine < 0.2 L Glucose 149 H POC Glucose 131 H Hemoglobin A1c Magnesium Ferritin AST ALT Alkaline Phosphatase Lactate Dehydrogenase C-Reactive Protein Total Protein Albumin Arterial Blood Glucose Coronavirus (PCR) 07/23/21 07/23/21 07/23/21 07:20 11:34 16:11 WBC MCV MCH MCHC RDW Lymph % (Auto) [place] % (Auto) Eos % (Auto) Lymph # (Auto) [place] # (Auto) Eos # (Auto) Baso # (Auto) Seg Neutrophils % Seg Neuts % (Manual) Lymphocytes % (Manual) Seg Neutrophils # Seg Neutrophils # Man Lymphocytes # (Manual) D-Dimer ABG pH POC ABG pCO2 POC ABG pO2 ABG pO2 ABG HCO3 ABG O2 Saturation ABG Base Excess ABG Oxyhemoglobin ABG Sodium ABG Chloride ABG Glucose Oxyhemoglobin Carboxyhemoglobin Sodium Potassium Chloride Carbon Dioxide BUN Creatinine Glucose POC Glucose 116 H 172 H 110 H Hemoglobin A1c Magnesium Ferritin AST ALT Alkaline Phosphatase Lactate Dehydrogenase C-Reactive Protein Total Protein Albumin Arterial Blood Glucose Coronavirus (PCR) 07/23/21 07/23/21 07/24/21 18:11 21:33 04:10 WBC MCV MCH MCHC RDW Lymph % (Auto) [place] % (Auto) Eos % (Auto) Lymph # (Auto) [place] # (Auto) Eos # (Auto) Baso # (Auto) Seg Neutrophils % Seg Neuts % (Manual) Lymphocytes % (Manual) Seg Neutrophils # Seg Neutrophils # Man Lymphocytes # (Manual) D-Dimer ABG pH POC ABG pCO2 78.3 H POC ABG pO2 80.7 L ABG pO2 ABG HCO3 ABG O2 Saturation ABG Base Excess ABG Oxyhemoglobin ABG Sodium 134.9 L ABG Chloride 89.0 L ABG Glucose 200 H Oxyhemoglobin Carboxyhemoglobin Sodium Potassium 3.5 L D Chloride 92.4 L Carbon Dioxide 42 H* BUN Creatinine < 0.2 L Glucose 123 H POC Glucose 108 H Hemoglobin A1c Magnesium Ferritin AST ALT Alkaline Phosphatase Lactate Dehydrogenase C-Reactive Protein Total Protein Albumin Arterial Blood Glucose 200 H Coronavirus (PCR) 07/24/21 07/24/21 07/24/21 11:01 16:56 22:06 WBC MCV MCH MCHC RDW Lymph % (Auto) [place] % (Auto) Eos % (Auto) Lymph # (Auto) [place] # (Auto) Eos # (Auto) Baso # (Auto) Seg Neutrophils % Seg Neuts % (Manual) Lymphocytes % (Manual) Seg Neutrophils # Seg Neutrophils # Man Lymphocytes # (Manual) D-Dimer ABG pH POC ABG pCO2 POC ABG pO2 ABG pO2 ABG HCO3 ABG O2 Saturation ABG Base Excess ABG Oxyhemoglobin ABG Sodium ABG Chloride ABG Glucose Oxyhemoglobin Carboxyhemoglobin Sodium Potassium Chloride Carbon Dioxide BUN Creatinine Glucose POC Glucose 171 H 111 H 136 H Hemoglobin A1c Magnesium Ferritin AST ALT Alkaline Phosphatase Lactate Dehydrogenase C-Reactive Protein Total Protein Albumin Arterial Blood Glucose Coronavirus (PCR) 07/25/21 07/25/21 07/25/21 07:40 10:59 11:58 WBC MCV MCH MCHC RDW Lymph % (Auto) [place] % (Auto) Eos % (Auto) Lymph # (Auto) [place] # (Auto) Eos # (Auto) Baso # (Auto) Seg Neutrophils % Seg Neuts % (Manual) Lymphocytes % (Manual) Seg Neutrophils # Seg Neutrophils # Man Lymphocytes # (Manual) D-Dimer ABG pH POC ABG pCO2 POC ABG pO2 ABG pO2 ABG HCO3 ABG O2 Saturation ABG Base Excess ABG Oxyhemoglobin ABG Sodium ABG Chloride ABG Glucose Oxyhemoglobin Carboxyhemoglobin Sodium Potassium Chloride 88.6 L Carbon Dioxide 43 H* BUN Creatinine 0.2 L Glucose 180 H POC Glucose 120 H 153 H Hemoglobin A1c Magnesium Ferritin AST ALT Alkaline Phosphatase Lactate Dehydrogenase C-Reactive Protein Total Protein Albumin Arterial Blood Glucose Coronavirus (PCR) 07/25/21 07/25/21 07/26/21 16:03 20:18 09:56 WBC MCV MCH MCHC RDW Lymph % (Auto) [place] % (Auto) Eos % (Auto) Lymph # (Auto) [place] # (Auto) Eos # (Auto) Baso # (Auto) Seg Neutrophils % Seg Neuts % (Manual) Lymphocytes % (Manual) Seg Neutrophils # Seg Neutrophils # Man Lymphocytes # (Manual) D-Dimer ABG pH POC ABG pCO2 POC ABG pO2 ABG pO2 ABG HCO3 ABG O2 Saturation ABG Base Excess ABG Oxyhemoglobin ABG Sodium ABG Chloride ABG Glucose Oxyhemoglobin Carboxyhemoglobin Sodium Potassium Chloride 91.3 L Carbon Dioxide 45 H* BUN Creatinine < 0.2 L Glucose 128 H POC Glucose 143 H 133 H Hemoglobin A1c Magnesium Ferritin AST ALT Alkaline Phosphatase Lactate Dehydrogenase C-Reactive Protein Total Protein Albumin 3.2 L Arterial Blood Glucose Coronavirus (PCR) 07/26/21 07/26/21 07/27/21 17:56 21:24 07:10 WBC MCV MCH MCHC RDW Lymph % (Auto) [place] % (Auto) Eos % (Auto) Lymph # (Auto) [place] # (Auto) Eos # (Auto) Baso # (Auto) Seg Neutrophils % Seg Neuts % (Manual) Lymphocytes % (Manual) Seg Neutrophils # Seg Neutrophils # Man Lymphocytes # (Manual) D-Dimer ABG pH POC ABG pCO2 POC ABG pO2 ABG pO2 ABG HCO3 ABG O2 Saturation ABG Base Excess ABG Oxyhemoglobin ABG Sodium ABG Chloride ABG Glucose Oxyhemoglobin Carboxyhemoglobin Sodium Potassium Chloride Carbon Dioxide BUN Creatinine Glucose POC Glucose 170 H 122 H 119 H Hemoglobin A1c Magnesium Ferritin AST ALT Alkaline Phosphatase Lactate Dehydrogenase C-Reactive Protein Total Protein Albumin Arterial Blood Glucose Coronavirus (PCR) 07/27/21 07/27/21 07/28/21 11:44 21:31 07:30 WBC MCV MCH MCHC RDW Lymph % (Auto) [place] % (Auto) Eos % (Auto) Lymph # (Auto) [place] # (Auto) Eos # (Auto) Baso # (Auto) Seg Neutrophils % Seg Neuts % (Manual) Lymphocytes % (Manual) Seg Neutrophils # Seg Neutrophils # Man Lymphocytes # (Manual) D-Dimer ABG pH POC ABG pCO2 POC ABG pO2 ABG pO2 ABG HCO3 ABG O2 Saturation ABG Base Excess ABG Oxyhemoglobin ABG Sodium ABG Chloride ABG Glucose Oxyhemoglobin Carboxyhemoglobin Sodium Potassium 3.4 L D Chloride 91.4 L Carbon Dioxide 39 H BUN Creatinine < 0.2 L Glucose 140 H POC Glucose 176 H 162 H Hemoglobin A1c Magnesium Ferritin AST ALT Alkaline Phosphatase Lactate Dehydrogenase C-Reactive Protein Total Protein Albumin Arterial Blood Glucose Coronavirus (PCR) 07/28/21 07/28/21 07/28/21 08:43 12:25 16:40 WBC MCV MCH MCHC RDW Lymph % (Auto) [place] % (Auto) Eos % (Auto) Lymph # (Auto) [place] # (Auto) Eos # (Auto) Baso # (Auto) Seg Neutrophils % Seg Neuts % (Manual) Lymphocytes % (Manual) Seg Neutrophils # Seg Neutrophils # Man Lymphocytes # (Manual) D-Dimer ABG pH POC ABG pCO2 POC ABG pO2 ABG pO2 ABG HCO3 ABG O2 Saturation ABG Base Excess ABG Oxyhemoglobin ABG Sodium ABG Chloride ABG Glucose Oxyhemoglobin Carboxyhemoglobin Sodium Potassium Chloride Carbon Dioxide BUN Creatinine Glucose POC Glucose 122 H 162 H 234 H Hemoglobin A1c Magnesium Ferritin AST ALT Alkaline Phosphatase Lactate Dehydrogenase C-Reactive Protein Total Protein Albumin Arterial Blood Glucose Coronavirus (PCR) 07/28/21 07/29/21 07/29/21 21:27 04:40 09:51 WBC MCV MCH MCHC RDW Lymph % (Auto) [place] % (Auto) Eos % (Auto) Lymph # (Auto) [place] # (Auto) Eos # (Auto) Baso # (Auto) Seg Neutrophils % Seg Neuts % (Manual) Lymphocytes % (Manual) Seg Neutrophils # Seg Neutrophils # Man Lymphocytes # (Manual) D-Dimer ABG pH POC ABG pCO2 POC ABG pO2 ABG pO2 ABG HCO3 ABG O2 Saturation ABG Base Excess ABG Oxyhemoglobin ABG Sodium ABG Chloride ABG Glucose Oxyhemoglobin Carboxyhemoglobin Sodium Potassium 3.4 L Chloride 92.3 L Carbon Dioxide 40 H BUN Creatinine < 0.2 L Glucose 125 H POC Glucose 155 H 112 H Hemoglobin A1c Magnesium Ferritin AST ALT Alkaline Phosphatase Lactate Dehydrogenase C-Reactive Protein Total Protein Albumin Arterial Blood Glucose Coronavirus (PCR) 07/29/21 07/29/21 07/29/21 12:03 16:39 21:28 WBC MCV MCH MCHC RDW Lymph % (Auto) [place] % (Auto) Eos % (Auto) Lymph # (Auto) [place] # (Auto) Eos # (Auto) Baso # (Auto) Seg Neutrophils % Seg Neuts % (Manual) Lymphocytes % (Manual) Seg Neutrophils # Seg Neutrophils # Man Lymphocytes # (Manual) D-Dimer ABG pH POC ABG pCO2 POC ABG pO2 ABG pO2 ABG HCO3 ABG O2 Saturation ABG Base Excess ABG Oxyhemoglobin ABG Sodium ABG Chloride ABG Glucose Oxyhemoglobin Carboxyhemoglobin Sodium Potassium Chloride Carbon Dioxide BUN Creatinine Glucose POC Glucose 188 H 141 H 130 H Hemoglobin A1c Magnesium Ferritin AST ALT Alkaline Phosphatase Lactate Dehydrogenase C-Reactive Protein Total Protein Albumin Arterial Blood Glucose Coronavirus (PCR) 07/30/21 07/30/21 07/30/21 08:37 11:56 22:25 WBC MCV MCH MCHC RDW Lymph % (Auto) [place] % (Auto) Eos % (Auto) Lymph # (Auto) [place] # (Auto) Eos # (Auto) Baso # (Auto) Seg Neutrophils % Seg Neuts % (Manual) Lymphocytes % (Manual) Seg Neutrophils # Seg Neutrophils # Man Lymphocytes # (Manual) D-Dimer ABG pH POC ABG pCO2 POC ABG pO2 ABG pO2 ABG HCO3 ABG O2 Saturation ABG Base Excess ABG Oxyhemoglobin ABG Sodium ABG Chloride ABG Glucose Oxyhemoglobin Carboxyhemoglobin Sodium Potassium Chloride Carbon Dioxide BUN Creatinine Glucose POC Glucose 133 H 156 H 118 H Hemoglobin A1c Magnesium Ferritin AST ALT Alkaline Phosphatase Lactate Dehydrogenase C-Reactive Protein Total Protein Albumin Arterial Blood Glucose Coronavirus (PCR) 07/31/21 07/31/21 07/31/21 06:43 11:55 16:39 WBC MCV MCH MCHC RDW Lymph % (Auto) [place] % (Auto) Eos % (Auto) Lymph # (Auto) [place] # (Auto) Eos # (Auto) Baso # (Auto) Seg Neutrophils % Seg Neuts % (Manual) Lymphocytes % (Manual) Seg Neutrophils # Seg Neutrophils # Man Lymphocytes # (Manual) D-Dimer ABG pH POC ABG pCO2 POC ABG pO2 ABG pO2 ABG HCO3 ABG O2 Saturation ABG Base Excess ABG Oxyhemoglobin ABG Sodium ABG Chloride ABG Glucose Oxyhemoglobin Carboxyhemoglobin Sodium Potassium Chloride Carbon Dioxide BUN Creatinine Glucose POC Glucose 115 H 114 H 185 H Hemoglobin A1c Magnesium Ferritin AST ALT Alkaline Phosphatase Lactate Dehydrogenase C-Reactive Protein Total Protein Albumin Arterial Blood Glucose Coronavirus (PCR) 07/31/21 08/01/21 08/01/21 23:22 11:35 15:34 WBC MCV MCH MCHC RDW Lymph % (Auto) [place] % (Auto) Eos % (Auto) Lymph # (Auto) [place] # (Auto) Eos # (Auto) Baso # (Auto) Seg Neutrophils % Seg Neuts % (Manual) Lymphocytes % (Manual) Seg Neutrophils # Seg Neutrophils # Man Lymphocytes # (Manual) D-Dimer ABG pH POC ABG pCO2 POC ABG pO2 ABG pO2 ABG HCO3 ABG O2 Saturation ABG Base Excess ABG Oxyhemoglobin ABG Sodium ABG Chloride ABG Glucose Oxyhemoglobin Carboxyhemoglobin Sodium Potassium Chloride Carbon Dioxide BUN Creatinine Glucose POC Glucose 213 H 122 H 142 H Hemoglobin A1c Magnesium Ferritin AST ALT Alkaline Phosphatase Lactate Dehydrogenase C-Reactive Protein Total Protein Albumin Arterial Blood Glucose Coronavirus (PCR) 08/01/21 08/02/21 08/02/21 22:15 07:41 11:58 WBC MCV MCH MCHC RDW Lymph % (Auto) [place] % (Auto) Eos % (Auto) Lymph # (Auto) [place] # (Auto) Eos # (Auto) Baso # (Auto) Seg Neutrophils % Seg Neuts % (Manual) Lymphocytes % (Manual) Seg Neutrophils # Seg Neutrophils # Man Lymphocytes # (Manual) D-Dimer ABG pH POC ABG pCO2 POC ABG pO2 ABG pO2 ABG HCO3 ABG O2 Saturation ABG Base Excess ABG Oxyhemoglobin ABG Sodium ABG Chloride ABG Glucose Oxyhemoglobin Carboxyhemoglobin Sodium Potassium Chloride Carbon Dioxide BUN Creatinine Glucose POC Glucose 121 H 109 H 136 H Hemoglobin A1c Magnesium Ferritin AST ALT Alkaline Phosphatase Lactate Dehydrogenase C-Reactive Protein Total Protein Albumin Arterial Blood Glucose Coronavirus (PCR) 08/02/21 08/03/21 08/03/21 21:19 07:47 11:18 WBC MCV MCH MCHC RDW Lymph % (Auto) [place] % (Auto) Eos % (Auto) Lymph # (Auto) [place] # (Auto) Eos # (Auto) Baso # (Auto) Seg Neutrophils % Seg Neuts % (Manual) Lymphocytes % (Manual) Seg Neutrophils # Seg Neutrophils # Man Lymphocytes # (Manual) D-Dimer ABG pH POC ABG pCO2 POC ABG pO2 ABG pO2 ABG HCO3 ABG O2 Saturation ABG Base Excess ABG Oxyhemoglobin ABG Sodium ABG Chloride ABG Glucose Oxyhemoglobin Carboxyhemoglobin Sodium Potassium Chloride Carbon Dioxide BUN Creatinine Glucose POC Glucose 159 H 111 H 202 H Hemoglobin A1c Magnesium Ferritin AST ALT Alkaline Phosphatase Lactate Dehydrogenase C-Reactive Protein Total Protein Albumin Arterial Blood Glucose Coronavirus (PCR) 08/03/21 08/03/2108/04/21 16:47 21:26 07:57 WBC MCV MCH MCHC RDW Lymph % (Auto) [place] % (Auto) Eos % (Auto) Lymph # (Auto) [place] # (Auto) Eos # (Auto) Baso # (Auto) Seg Neutrophils % Seg Neuts % (Manual) Lymphocytes % (Manual) Seg Neutrophils # Seg Neutrophils # Man Lymphocytes # (Manual) D-Dimer ABG pH POC ABG pCO2 POC ABG pO2 ABG pO2 ABG HCO3 ABG O2 Saturation ABG Base Excess ABG Oxyhemoglobin ABG Sodium ABG Chloride ABG Glucose Oxyhemoglobin Carboxyhemoglobin Sodium Potassium Chloride Carbon Dioxide BUN Creatinine Glucose POC Glucose 133 H 148 H 129 H Hemoglobin A1c Magnesium Ferritin AST ALT Alkaline Phosphatase Lactate Dehydrogenase C-Reactive Protein Total Protein Albumin Arterial Blood Glucose Coronavirus (PCR) 08/04/21 08/04/21 08/04/21 08:05 11:42 16:53 WBC MCV MCH MCHC RDW Lymph % (Auto) [place] % (Auto) Eos % (Auto) Lymph # (Auto) [place] # (Auto) Eos # (Auto) Baso # (Auto) Seg Neutrophils % Seg Neuts % (Manual) Lymphocytes % (Manual) Seg Neutrophils # Seg Neutrophils # Man Lymphocytes # (Manual) D-Dimer ABG pH POC ABG pCO2 POC ABG pO2 ABG pO2 ABG HCO3 ABG O2 Saturation ABG Base Excess ABG Oxyhemoglobin ABG Sodium ABG Chloride ABG Glucose Oxyhemoglobin Carboxyhemoglobin Sodium Potassium Chloride Carbon Dioxide BUN Creatinine Glucose POC Glucose 145 H 187 H 112 H Hemoglobin A1c Magnesium Ferritin AST ALT Alkaline Phosphatase Lactate Dehydrogenase C-Reactive Protein Total Protein Albumin Arterial Blood Glucose Coronavirus (PCR) 08/04/21 08/05/21 08/05/21 21:27 07:35 11:19 WBC MCV MCH MCHC RDW Lymph % (Auto) [place] % (Auto) Eos % (Auto) Lymph # (Auto) [place] # (Auto) Eos # (Auto) Baso # (Auto) Seg Neutrophils % Seg Neuts % (Manual) Lymphocytes % (Manual) Seg Neutrophils # Seg Neutrophils # Man Lymphocytes # (Manual) D-Dimer ABG pH POC ABG pCO2 POC ABG pO2 ABG pO2 ABG HCO3 ABG O2 Saturation ABG Base Excess ABG Oxyhemoglobin ABG Sodium ABG Chloride ABG Glucose Oxyhemoglobin Carboxyhemoglobin Sodium Potassium Chloride Carbon Dioxide BUN Creatinine Glucose POC Glucose 189 H 146 H 244 H Hemoglobin A1c Magnesium Ferritin AST ALT Alkaline Phosphatase Lactate Dehydrogenase C-Reactive Protein Total Protein Albumin Arterial Blood Glucose Coronavirus (PCR) 08/05/21 08/06/21 08/06/21 22:16 07:29 11:16 WBC MCV MCH MCHC RDW Lymph % (Auto) [place] % (Auto) Eos % (Auto) Lymph # (Auto) [place] # (Auto) Eos # (Auto) Baso # (Auto) Seg Neutrophils % Seg Neuts % (Manual) Lymphocytes % (Manual) Seg Neutrophils # Seg Neutrophils # Man Lymphocytes # (Manual) D-Dimer ABG pH POC ABG pCO2 POC ABG pO2 ABG pO2 ABG HCO3 ABG O2 Saturation ABG Base Excess ABG Oxyhemoglobin ABG Sodium ABG Chloride ABG Glucose Oxyhemoglobin Carboxyhemoglobin Sodium Potassium Chloride Carbon Dioxide BUN Creatinine Glucose POC Glucose 122 H 128 H 228 H Hemoglobin A1c Magnesium Ferritin AST ALT Alkaline Phosphatase Lactate Dehydrogenase C-Reactive Protein Total Protein Albumin Arterial Blood Glucose Coronavirus (PCR) 08/06/21 08/07/21 21:13 07:17 WBC MCV MCH MCHC RDW Lymph % (Auto) [place] % (Auto) Eos % (Auto) Lymph # (Auto) [place] # (Auto) Eos # (Auto) Baso # (Auto) Seg Neutrophils % Seg Neuts % (Manual) Lymphocytes % (Manual) Seg Neutrophils # Seg Neutrophils # Man Lymphocytes # (Manual) D-Dimer ABG pH POC ABG pCO2 POC ABG pO2 ABG pO2 ABG HCO3 ABG O2 Saturation ABG Base Excess ABG Oxyhemoglobin ABG Sodium ABG Chloride ABG Glucose Oxyhemoglobin Carboxyhemoglobin Sodium Potassium Chloride Carbon Dioxide BUN Creatinine Glucose POC Glucose 198 H 134 H Hemoglobin A1c Magnesium Ferritin AST ALT Alkaline Phosphatase Lactate Dehydrogenase C-Reactive Protein Total Protein Albumin Arterial Blood Glucose Coronavirus (PCR)
[2021-08-07] MEDS: ENOXAPARIN 40 MG/0.4 ML INJ SUB-Q SCH (22:17)
[2021-08-07] MEDS: ACETAMINOPHEN 325 MG TAB PO PRN (22:25)
[2021-08-08 05:26] LABS: Blood Urea Nitrogen 9 mg/dL (7-17); Calcium 9.4 mg/dL (8.4-10.2); Hemolysis Index 12
[2021-08-08 05:34] LABS: BUN/Creatinine Ratio 45
--- NOTE | 2021-08-08 07:39 | Progress Note ---
Assessment and Plan Assessment and plan: #Acute hypoxic/hypercapneic respiratory failure #Severe ARDS -refused BiPAP overnight, currently on HFNC 35/65 -plan to maintain SpO2 >88%, HFNC during the day and BiPAP at night and PRN -s/p prednisone taper -encouraged patient to prone herself when she is awake #Metabolic alkalosis -stable -Patient received multiple doses of Lasix over course of hospital stay but may be 2/2 to compensation for hypercapneia #Heart failure with preserved ejection fraction -TTE: LVEF 55-60% with diastolic dysfunction -will continue to monitor for signs of fluid overload #COVID-19 infection -Continue Covid vitamins #Type 2 diabetes -continue Lantus 5 units daily and sliding scale insulin #Anxiety -Stable -continue xanax #DVT prophylaxis -Lovenox 40 daily #Deconditioning -Will benefit from SNF after prolonged hospital stay Resolved issues #Sepsis secondary to COVID-19 #Iatrogenic diarrhea #Hypomagnesemia #Hyponatremia #Protein calorie malnutrition #Dysuria #Hypokalemia #Possible UTI Disposition Plan: Continue medical management Total Time Spent with Patient (Minutes): 20 minutes History Interval history: No acute events overnight. On HFNC. Appears to be comfortable. Feels "cold". No other complaints at this time. Hospitalist Physical - Physical exam Narrative exam: GENERAL: Well-developed well-nourished. Lying in bed in no acute distress. HEENT: HFNC in place. CHEST/LUNGS: Coarse breath sounds bilaterally. HEART/CARDIOVASCULAR: Mildly tachycardic. No murmur, rubs or gallops appreciated. ABDOMEN: +BS. NT/ND. PSYCH: Cooperative. - Constitutional Vitals: Temp Pulse Resp BP Pulse Ox 98.1 F 96 H 34 H 123/54 96 08/08/21 07:22 08/08/21 07:00 08/08/21 07:00 08/08/21 07:00 08/08/21 07:00 General appearance: Present: no acute distress, well-nourished, other (Looks tired) Results - Labs CBC & Chem 7: 07/23/21 04:35 08/08/21 04:51 Labs: Laboratory Last Values WBC 10.8 K/mm3 (4.5-11.0) 07/23/21 04:35 RBC 3.84 M/mm3 (3.65-5.03) 07/23/21 04:35 Hgb 12.1 gm/dl (10.1-14.3) 07/23/21 04:35 Hct 37.6 % (30.3-42.9) 07/23/21 04:35 MCV 98 fl (79-97) H 07/23/21 04:35 MCH 32 pg (28-32) 07/23/21 04:35 MCHC 32 % (30-34) 07/23/21 04:35 RDW 16.2 % (13.2-15.2) H 07/23/21 04:35 Plt Count 367 K/mm3 (140-440) 07/23/21 04:35 Lymph % (Auto) 7.9 % (13.4-35.0) L 07/23/21 04:35 [place] % (Auto) 5.6 % (0.0-7.3) 07/23/21 04:35 Eos % (Auto) 0.8 % (0.0-4.3) 07/23/21 04:35 Baso % (Auto) 0.4 % (0.0-1.8) 07/23/21 04:35 Lymph # (Auto) 0.9 K/mm3 (1.2-5.4) L 07/23/21 04:35 [place] # (Auto) 0.6 K/mm3 (0.0-0.8) 07/23/21 04:35 Eos # (Auto) 0.1 K/mm3 (0.0-0.4) 07/23/21 04:35 Baso # (Auto) 0.0 K/mm3 (0.0-0.1) 07/23/21 04:35 Add Manual Diff Complete 07/09/21 04:45 Total Counted 100 07/09/21 04:45 Seg Neutrophils % 85.3 % (40.0-70.0) H 07/23/21 04:35 Seg Neuts % (Manual) 82.0 % (40.0-70.0) H 07/09/21 04:45 Band Neutrophils % 1.0 % 05/12/21 04:05 Lymphocytes % (Manual) 13.0 % (13.4-35.0) L 07/09/21 04:45 Monocytes % (Manual) 3.0 % (0.0-7.3) 07/09/21 04:45 Eosinophils % (Manual) 2.0 % (0.0-4.3) 07/09/21 04:45 Nucleated RBC % Not Reportable 07/09/21 04:45 Seg Neutrophils # 9.2 K/mm3 (1.8-7.7) H 07/23/21 04:35 Seg Neutrophils # Man 7.8 K/mm3 (1.8-7.7) H 07/09/21 04:45 Band Neutrophils # 0.0 K/mm3 07/09/21 04:45 Lymphocytes # (Manual) 1.2 K/mm3 (1.2-5.4) 07/09/21 04:45 Abs React Lymphs (Man) 0.0 K/mm3 07/09/21 04:45 Monocytes # (Manual) 0.3 K/mm3 (0.0-0.8) 07/09/21 04:45 Eosinophils # (Manual) 0.2 K/mm3 (0.0-0.4) 07/09/21 04:45 Basophils # (Manual) 0.0 K/mm3 (0.0-0.1) 07/09/21 04:45 Metamyelocytes # 0.0 K/mm3 07/09/21 04:45 Myelocytes # 0.0 K/mm3 07/09/21 04:45 Promyelocytes # 0.0 K/mm3 07/09/21 04:45 Blast Cells # 0.0 K/mm3 07/09/21 04:45 WBC Morphology Not Reportable 07/09/21 04:45 Hypersegmented Neuts Not Reportable 07/09/21 04:45 Hyposegmented Neuts Not Reportable 07/09/21 04:45 Hypogranular Neuts Not Reportable 07/09/21 04:45 Smudge Cells Not Reportable 07/09/21 04:45 Toxic Granulation Not Reportable 07/09/21 04:45 Toxic Vacuolation Not Reportable 07/09/21 04:45 Dohle Bodies Not Reportable 07/09/21 04:45 Pelger-Huet Anomaly Not Reportable 07/09/21 04:45 Janelle Rods Not Reportable 07/09/21 04:45 Platelet Estimate Consistent w auto 07/09/21 04:45 Clumped Platelets Not Reportable 07/09/21 04:45 Plt Clumps, EDTA Not Reportable 07/09/21 04:45 Large Platelets Not Reportable 07/09/21 04:45 Giant Platelets Rare 07/09/21 04:45 Platelet Satelliting Not Reportable 07/09/21 04:45 Plt Morphology Comment Not Reportable 07/09/21 04:45 RBC Morphology Not Reportable 07/09/21 04:45 Dimorphic RBCs Not Reportable 07/09/21 04:45 Polychromasia Not Reportable 07/09/21 04:45 Hypochromasia Few 07/09/21 04:45 Poikilocytosis Not Reportable 07/09/21 04:45 Anisocytosis Not Reportable 07/09/21 04:45 Microcytosis Not Reportable 07/09/21 04:45 Macrocytosis Not Reportable 07/09/21 04:45 Spherocytes Not Reportable 07/09/21 04:45 Pappenheimer Bodies Not Reportable 07/09/21 04:45 Sickle Cells Not Reportable 07/09/21 04:45 Target Cells Not Reportable 07/09/21 04:45 Tear Drop Cells Not Reportable 07/09/21 04:45 Ovalocytes Not Reportable 07/09/21 04:45 Stomatocytes 1+ 07/09/21 04:45 Helmet Cells Not Reportable 07/09/21 04:45 [place] Bodies Not Reportable 07/09/21 04:45 [place] Rings Not Reportable 07/09/21 04:45 [place] Cells Not Reportable 07/09/21 04:45 Bite Cells Not Reportable 07/09/21 04:45 Crenated Cell Not Reportable 07/09/21 04:45 Elliptocytes Not Reportable 07/09/21 04:45 Acanthocytes (Spur) Not Reportable 07/09/21 04:45 Rouleaux Not Reportable 07/09/21 04:45 Hemoglobin C Crystals Not Reportable 07/09/21 04:45 Schistocytes Not Reportable 07/09/21 04:45 Malaria parasites Not Reportable 07/09/21 04:45 [place] Bodies Not Reportable 07/09/21 04:45 Hem Pathologist Commnt No 07/09/21 04:45 D-Dimer 638.35 ng/mlDDU (0-234) H 10/26/21 04:45 ABG pH 7.417 (7.320-7.450) 07/23/21 18:11 POC ABG pCO2 78.3 mmHg (32.0-48.0) H 07/23/21 18:11 ABG pCO2 85.7 mm Hg 07/22/21 12:05 POC ABG pO2 80.7 mmHg (83-108) L 07/23/21 18:11 ABG pO2 66.1 mm Hg (80.0-90.0) L 07/22/21 12:05 POC ABG HCO3 49.3 07/23/21 18:11 ABG HCO3 45.0 mmol/L (20.0-26.0) H 07/22/21 12:05 ABG O2 Saturation 96.7 (0-100) 07/23/21 18:11 ABG O2 Content 16.8 (0.0-44) 07/22/21 12:05 POC ABG Base Excess 20.5 07/23/21 18:11 ABG Base Excess 15.2 mmol/L (-2.0-3.0) H 07/22/21 12:05 ABG Hemoglobin 12.6 (12.0-17.5) 07/23/21 18:11 ABG Oxyhemoglobin 95.7 (94-98) 07/23/21 18:11 ABG Carboxyhemoglobin 1.9 % (0.0-5.0) 07/22/21 12:05 ABG Methemoglobin 0.3 (0.0-1.5) 07/23/21 18:11 ABG Sodium 134.9 mmol/L (136.0-145.0) L 07/23/21 18:11 ABG Potassium 3.9 mmol/L (3.40-4.50) 07/23/21 18:11 ABG Chloride 89.0 mmol/L (98-107) L 07/23/21 18:11 ABG Glucose 200 mg/dL (65-95) H 07/23/21 18:11 Oxyhemoglobin 91.9 % (95.0-99.0) L 07/22/21 12:05 Carboxyhemoglobin 0.7 (0.5-1.5) 07/23/21 18:11 FiO2 100 % 07/22/21 12:05 FiO2 % 100.0 07/23/21 18:11 Sodium 140 mmol/L (137-145) 08/08/21 04:51 Potassium 4.1 mmol/L (3.6-5.0) 08/08/21 04:51 Chloride 92.9 mmol/L (98-107) L 08/08/21 04:51 Carbon Dioxide 39 mmol/L (22-30) H 08/08/21 04:51 Anion Gap 12 mmol/L 08/08/21 04:51 BUN 9 mg/dL (7-17) 08/08/21 04:51 Creatinine < 0.2 mg/dL (0.6-1.2) L 08/08/21 04:51 Estimated GFR > 60 ml/min 08/08/21 04:51 BUN/Creatinine Ratio 45 % 08/08/21 04:51 Glucose 105 mg/dL (65-100) H 08/08/21 04:51 POC Glucose 104 mg/dL (70-105) 08/08/21 07:12 Hemoglobin A1c 8.5 % (4-6) H 04/18/21 07:36 Calcium 9.4 mg/dL (8.4-10.2) 08/08/21 04:51 Phosphorus 3.70 mg/dL (2.5-4.5) 07/23/21 04:35 Magnesium 2.10 mg/dL (1.7-2.3) 07/23/21 04:35 Ferritin 155.9 ng/mL (10.0-200.0) 07/09/21 04:45 Total Bilirubin < 0.20 mg/dL (0.1-1.2) 07/26/21 09:56 AST 23 units/L (5-40) 07/26/21 09:56 ALT 25 units/L (7-56) 07/26/21 09:56 Alkaline Phosphatase 69 units/L (35-129) 07/26/21 09:56 Lactate Dehydrogenase 475 units/L (91-180) H 06/05/21 05:26 C-Reactive Protein 4.30 mg/dL (0.00-1.30) H 07/09/21 04:45 NT-Pro-B Natriuret Pep 59.45 pg/mL (0-450) 07/07/21 13:40 Total Protein 8.1 g/dL (6.3-8.2) 07/26/21 09:56 Albumin 3.2 g/dL (3.9-5) L 07/26/21 09:56 Albumin/Globulin Ratio 0.7 % 07/26/21 09:56 Triglycerides < 9 mg/dL (2-149) 05/03/21 04:30 Procalcitonin < 0.05 ng/mL (<0.15) 05/23/21 09:50 Arterial Blood Glucose 200 mg/dL (65-95) H 07/23/21 18:11 Arterial Blood Ionized Calcium 4.6 mg/dL (4.6-5.3) 07/23/21 18:11 Coronavirus (PCR) Negative (Negative) 07/25/21 Unknown Amos/IV: Voiding Method External Female Catheter Active Medications - Current Medications Current Medications: Generic Name Dose Route Start Last Admin Trade Name Freq PRN Reason Stop Dose Admin Acetaminophen 650 mg 07/02/21 17:48 08/07/21 22:25 Acetaminophen 325 Mg Tab PO 650 mg Q4H PRN Administration Pain, Mild (1-3) Albuterol 2.5 mg 04/16/21 13:39 04/21/21 20:39 Albuterol 2.5 Mg/3 Ml Nebu IH 2.5 mg Q4HRT PRN Administration Shortness Of Breath Alprazolam 2 mg 07/29/21 22:00 08/07/21 22:18 Alprazolam 1 Mg Tab PO 2 mg BID TUTU Administration Calcium Carbonate/Glycine 500 mg 07/24/21 10:43 Calcium Carbonate 500 Mg Tab Chew PO BID PRN reflux Cholecalciferol 1,000 unit 04/17/21 10:00 08/07/21 10:45 Cholecalciferol (Vit D3) 1000 Unit (25 Mcg) Tab PO 1,000 unit QDAY TUTU Administration Enoxaparin Sodium 40 mg 05/19/21 22:00 08/07/21 22:17 Enoxaparin 40 Mg/0.4 Ml Inj SUB-Q 40 mg QDAY@2200 TUTU Administration Protocol Ibuprofen 600 mg 07/11/21 11:00 07/26/21 11:10 Ibuprofen 600 Mg Tab PO 600 mg Q6H PRN Administration Ear Pain Insulin Glargine 5 units 07/25/21 10:00 08/07/21 10:43 Insulin Glargine 100 Units/Ml SUB-Q Not Given DAILY [facility] Insulin Human Lispro 0 unit 05/18/21 12:00 08/07/21 22:17 Insulin Lispro 100 Unit/Ml SUB-Q 4 unit ACHS TUTU Administration Protocol Ondansetron HCl 4 mg 04/16/21 14:00 05/30/21 10:07 Ondansetron 4 Mg/2 Ml Inj IV 4 mg Q8H PRN Administration Nausea And Vomiting Polyethylene Glycol 17 gm 07/16/21 20:00 Polyethylene Glycol 3350 17 Gm Powder PO QDAY PRN Constipation Sodium Chloride 10 ml 04/16/21 13:39 07/27/21 10:47 Sodium Chloride 0.9% 10 Ml Flush Syringe IV 10 ml PRN PRN Administration LINE FLUSH Zinc Sulfate 220 mg 04/16/21 22:00 08/07/21 22:18 Zinc Sulfate 220 Mg Cap PO 220 mg BID TUTU Administration Nutrition/Malnutrition Assess - Dietary Evaluation Nutrition/Malnutrition Findings: Nutrition Notes Start: 04/23/21 07:41 Freq: Status: Active Protocol: Document 08/07/21 11:38 TITUS (Rec: 08/07/21 11:43 TITUS [id number]) Nutrition Notes Initial or Follow up Reassessment Current Diagnosis Diabetes,Heart Failure, Respiratory Failure Other Pertinent Diagnosis COVID-19 (+), Anxiety Current Diet consistent carbohydrate Labs/Tests POC Glu range for past 7 days: 102-244 Pertinent Medications Xanax Height 4 ft 11.84 in Weight 60.3 kg [place] Body Weight (kg) 45.09 BMI 26.1 Weight Status Overweight Subjective/Other Information Pt placed on BiPap support this am sec to increased work of breathing; she often refuses BiPap at night. She has consumed 86% of meals since 08/04. Percent of energy/protein needs met: 100% energy and pro Burn Absent Trauma Absent Current % PO Good (75-100%) Minimum of two criteria No #3 Nutrition Diagnosis No nutrition diagnosis at this time Diagnosis Progress(for reassessment Continues documentation) Is patient on ventilator? No Is Patient Ambulatory and/or Out of Bed No REE-(Clifford-St. Jeor-confined to bed) [phone] Calculation Used for Recommendations Clifford-St Jeor Additional Notes Pro needs 0.8-1g/k-60g/ day Fluid needs 1ml/kcal Nutrition Intervention Revisit per MD consult or patient Sign Off request:
[2021-08-08] MEDS: INSULIN GLARGINE 100 UNITS/ML SUB-Q SCH (10:04)
[2021-08-08] MEDS: INSULIN LISPRO 100 UNIT/ML SUB-Q SCH ×2 (10:04→21:36)
[2021-08-08] MEDS: CHOLECALCIFEROL (VIT D3) 1000 UNIT (25 mcg) TAB PO SCH (10:04)
[2021-08-08] MEDS: ALPRAZolam 1 MG TAB PO SCH ×2 (10:04→21:45)
[2021-08-08] MEDS: ZINC SULFATE 220 MG CAP PO SCH ×2 (10:05→21:45)
--- NOTE | 2021-08-08 10:12 | Progress Note ---
Assessment and Plan - Patient Problems (1) Pneumonia due to SARS-associated coronavirus Current Visit: Yes Status: Acute (2) Acute hypoxemic respiratory failure Current Visit: Yes Status: Acute (3) Obesity hypoventilation syndrome Current Visit: Yes Status: Acute (4) Pneumonia Current Visit: Yes Status: Acute Qualifiers: Aspiration pneumonia type: unspecified Laterality: unspecified laterality Lung location: unspecified part of lung (5) Transaminitis Current Visit: No Status: Resolved (6) Oral thrush Current Visit: Yes Status: Acute (7) Volume overload Current Visit: Yes Status: Acute (8) Severe muscle deconditioning Current Visit: Yes Status: Acute Subjective Principal diagnosis: Covid-19 Interval history: pt awake w eyes open. Still on hiflo o2 at 65% sat 85 to 89% Objective Vital Signs - 12hr 08/07/21 08/07/21 08/07/21 22:25 23:00 23:23 Temperature Pulse Rate 110 H Respiratory 32 H 44 H Rate Blood Pressure 111/64 O2 Sat by Pulse 94 97 Oximetry 08/08/21 08/08/21 08/08/21 00:00 01:00 02:00 Temperature 97.4 F L Pulse Rate 101 H 99 H 97 H Respiratory 36 H 35 H 34 H Rate Blood Pressure 113/66 112/68 115/67 O2 Sat by Pulse 98 98 99 Oximetry 08/08/21 08/08/21 08/08/21 03:00 04:00 05:00 Temperature 97.6 F Pulse Rate 97 H 98 H 94 H Respiratory 32 H 32 H 33 H Rate Blood Pressure 114/70 118/67 110/59 O2 Sat by Pulse 98 98 98 Oximetry 08/08/21 08/08/21 08/08/21 06:00 07:00 07:22 Temperature 98.1 F Pulse Rate 95 H 96 H Respiratory 35 H 34 H Rate Blood Pressure 132/54 123/54 O2 Sat by Pulse 96 96 Oximetry 08/08/21 08/08/21 08/08/21 08:00 09:00 10:00 Temperature Pulse Rate 94 H 99 H 107 H Respiratory 33 H 35 H 44 H Rate Blood Pressure 117/63 117/63 131/63 O2 Sat by Pulse 95 96 91 Oximetry Constitutional: alert, other (on hiflo o2) Eyes: non-icteric ENT: oropharynx moist Neck: supple Effort: normal Ascultation: Bilateral: diminished breath sounds Cardiovascular: regular rate and rhythm Gastrointestinal: normoactive bowel sounds, soft, non-tender, non-distended Integumentary: normal Extremities: no cyanosis, no edema, pink and warm Neurologic: non-focal exam, pupils equal and round Psychiatric: mood appropriate, affect normal CBC and BMP: 07/23/21 04:35 08/08/21 04:51 ABG, PT/INR, D-dimer: ABG ABG pH 7.417 (7.320-7.450) 07/23/21 18:11 POC ABG pCO2 78.3 mmHg (32.0-48.0) H 07/23/21 18:11 ABG pCO2 85.7 mm Hg 07/22/21 12:05 POC ABG pO2 80.7 mmHg (83-108) L 07/23/21 18:11 ABG pO2 66.1 mm Hg (80.0-90.0) L 07/22/21 12:05 POC ABG HCO3 49.3 07/23/21 18:11 ABG O2 Saturation 96.7 (0-100) 07/23/21 18:11 PT/INR, D-dimer D-Dimer 638.35 ng/mlDDU (0-234) H 07/09/21 04:45 Abnormal lab findings: Abnormal Labs 04/16/21 04/16/21 04/16/21 11:42 11:42 11:42 WBC MCV MCH MCHC RDW 16.1 H Lymph % (Auto) 7.8 L Park % (Auto) Eos % (Auto) Lymph # (Auto) 0.8 L [place] # (Auto) Eos # (Auto) Baso # (Auto) Seg Neutrophils % 87.7 H Seg Neuts % (Manual) Lymphocytes % (Manual) Seg Neutrophils # 8.5 H Seg Neutrophils # Man Lymphocytes # (Manual) D-Dimer 338.70 H ABG pH POC ABG pCO2 POC ABG pO2 ABG pO2 ABG HCO3 ABG O2 Saturation ABG Base Excess ABG Oxyhemoglobin ABG Sodium ABG Chloride ABG Glucose Oxyhemoglobin Carboxyhemoglobin Sodium Potassium Chloride Carbon Dioxide BUN Creatinine Glucose 194 H POC Glucose Hemoglobin A1c Magnesium Ferritin AST ALT Alkaline Phosphatase Lactate Dehydrogenase C-Reactive Protein Total Protein 8.4 H Albumin 3.8 L Arterial Blood Glucose Coronavirus (PCR) 04/16/21 04/16/21 04/17/21 11:42 11:42 03:50 WBC MCV MCH MCHC RDW 16.0 H Lymph % (Auto) 7.7 L [place] % (Auto) Eos % (Auto) Lymph # (Auto) 0.6 L [place] # (Auto) Eos # (Auto) Baso # (Auto) Seg Neutrophils % 89.8 H Seg Neuts % (Manual) Lymphocytes % (Manual) Seg Neutrophils # Seg Neutrophils # Man Lymphocytes # (Manual) D-Dimer ABG pH POC ABG pCO2 POC ABG pO2 ABG pO2 ABG HCO3 ABG O2 Saturation ABG Base Excess ABG Oxyhemoglobin ABG Sodium ABG Chloride ABG Glucose Oxyhemoglobin Carboxyhemoglobin Sodium Potassium Chloride Carbon Dioxide BUN Creatinine Glucose 195 H POC Glucose Hemoglobin A1c Magnesium Ferritin 254.3 H AST ALT Alkaline Phosphatase Lactate Dehydrogenase 359 H C-Reactive Protein 15.20 H Total Protein Albumin Arterial Blood Glucose Coronavirus (PCR) 04/17/21 04/17/21 04/17/21 03:50 08:26 08:26 WBC MCV MCH MCHC RDW Lymph % (Auto) Park % (Auto) Eos % (Auto) Lymph # (Auto) Park # (Auto) Eos # (Auto) Baso # (Auto) Seg Neutrophils % Seg Neuts % (Manual) Lymphocytes % (Manual) Seg Neutrophils # Seg Neutrophils # Man Lymphocytes # (Manual) D-Dimer 262.48 H ABG pH POC ABG pCO2 POC ABG pO2 ABG pO2 ABG HCO3 ABG O2 Saturation ABG Base Excess ABG Oxyhemoglobin ABG Sodium ABG Chloride ABG Glucose Oxyhemoglobin Carboxyhemoglobin Sodium Potassium Chloride Carbon Dioxide BUN 20 H Creatinine 0.5 L Glucose 249 H 225 H POC Glucose Hemoglobin A1c Magnesium Ferritin AST ALT Alkaline Phosphatase Lactate Dehydrogenase 338 H C-Reactive Protein 17.20 H Total Protein Albumin 3.2 L Arterial Blood Glucose Coronavirus (PCR) 04/17/21 04/17/21 04/17/21 08:26 15:04 Unknown WBC MCV MCH MCHC RDW Lymph % (Auto) Park % (Auto) Eos % (Auto) Lymph # (Auto) Park # (Auto) Eos # (Auto) Baso # (Auto) Seg Neutrophils % Seg Neuts % (Manual) Lymphocytes % (Manual) Seg Neutrophils # Seg Neutrophils # Man Lymphocytes # (Manual) D-Dimer ABG pH POC ABG pCO2 POC ABG pO2 ABG pO2 ABG HCO3 ABG O2 Saturation ABG Base Excess ABG Oxyhemoglobin ABG Sodium ABG Chloride ABG Glucose Oxyhemoglobin Carboxyhemoglobin Sodium Potassium Chloride Carbon Dioxide BUN 20 H Creatinine 0.5 L Glucose 246 H POC Glucose Hemoglobin A1c Magnesium Ferritin 392.0 H AST ALT Alkaline Phosphatase Lactate Dehydrogenase C-Reactive Protein Total Protein 8.3 H Albumin 3.1 L Arterial Blood Glucose Coronavirus (PCR) Positive A 04/18/21 04/18/21 04/18/21 05:06 05:06 07:36 WBC 11.6 H MCV MCH MCHC RDW 16.1 H Lymph % (Auto) Park % (Auto) Eos % (Auto) Lymph # (Auto) Park # (Auto) Eos # (Auto) Baso # (Auto) Seg Neutrophils % Seg Neuts % (Manual) Lymphocytes % (Manual) Seg Neutrophils # Seg Neutrophils # Man Lymphocytes # (Manual) D-Dimer ABG pH POC ABG pCO2 POC ABG pO2 ABG pO2 ABG HCO3 ABG O2 Saturation ABG Base Excess ABG Oxyhemoglobin ABG Sodium ABG Chloride ABG Glucose Oxyhemoglobin Carboxyhemoglobin Sodium Potassium 5.2 H Chloride Carbon Dioxide BUN 22 H Creatinine 0.5 L Glucose 315 H POC Glucose Hemoglobin A1c 8.5 H Magnesium Ferritin AST ALT Alkaline Phosphatase Lactate Dehydrogenase C-Reactive Protein Total Protein Albumin 3.3 L Arterial Blood Glucose Coronavirus (PCR) 04/18/21 04/18/21 04/18/21 11:59 16:43 23:24 WBC MCV MCH MCHC RDW Lymph % (Auto) Park % (Auto) Eos % (Auto) Lymph # (Auto) Park # (Auto) Eos # (Auto) Baso # (Auto) Seg Neutrophils % Seg Neuts % (Manual) Lymphocytes % (Manual) Seg Neutrophils # Seg Neutrophils # Man Lymphocytes # (Manual) D-Dimer ABG pH POC ABG pCO2 POC ABG pO2 ABG pO2 ABG HCO3 ABG O2 Saturation ABG Base Excess ABG Oxyhemoglobin ABG Sodium ABG Chloride ABG Glucose Oxyhemoglobin Carboxyhemoglobin Sodium Potassium Chloride Carbon Dioxide BUN Creatinine Glucose POC Glucose 284 H 273 H 290 H Hemoglobin A1c Magnesium Ferritin AST ALT Alkaline Phosphatase Lactate Dehydrogenase C-Reactive Protein Total Protein Albumin Arterial Blood Glucose Coronavirus (PCR) 04/19/21 04/19/21 04/19/21 04:19 04:19 08:10 WBC MCV MCH MCHC RDW 15.7 H Lymph % (Auto) Park % (Auto) Eos % (Auto) Lymph # (Auto) Park # (Auto) Eos # (Auto) Baso # (Auto) Seg Neutrophils % Seg Neuts % (Manual) Lymphocytes % (Manual) Seg Neutrophils # Seg Neutrophils # Man Lymphocytes # (Manual) D-Dimer ABG pH POC ABG pCO2 POC ABG pO2 ABG pO2 ABG HCO3 ABG O2 Saturation ABG Base Excess ABG Oxyhemoglobin ABG Sodium ABG Chloride ABG Glucose Oxyhemoglobin Carboxyhemoglobin Sodium Potassium Chloride Carbon Dioxide BUN 27 H Creatinine 0.4 L Glucose 184 H POC Glucose 194 H Hemoglobin A1c Magnesium Ferritin AST ALT Alkaline Phosphatase Lactate Dehydrogenase C-Reactive Protein Total Protein Albumin 3.1 L Arterial Blood Glucose Coronavirus (PCR) 04/19/21 04/19/21 04/19/21 11:38 16:25 22:04 WBC MCV MCH MCHC RDW Lymph % (Auto) Park % (Auto) Eos % (Auto) Lymph # (Auto) Park # (Auto) Eos # (Auto) Baso # (Auto) Seg Neutrophils % Seg Neuts % (Manual) Lymphocytes % (Manual) Seg Neutrophils # Seg Neutrophils # Man Lymphocytes # (Manual) D-Dimer ABG pH POC ABG pCO2 POC ABG pO2 ABG pO2 ABG HCO3 ABG O2 Saturation ABG Base Excess ABG Oxyhemoglobin ABG Sodium ABG Chloride ABG Glucose Oxyhemoglobin Carboxyhemoglobin Sodium Potassium Chloride Carbon Dioxide BUN Creatinine Glucose POC Glucose 224 H 297 H 251 H Hemoglobin A1c Magnesium Ferritin AST ALT Alkaline Phosphatase Lactate Dehydrogenase C-Reactive Protein Total Protein Albumin Arterial Blood Glucose Coronavirus (PCR) 04/20/21 04/20/21 04/20/21 05:28 08:43 16:21 WBC MCV MCH MCHC RDW Lymph % (Auto) Park % (Auto) Eos % (Auto) Lymph # (Auto) Park # (Auto) Eos # (Auto) Baso # (Auto) Seg Neutrophils % Seg Neuts % (Manual) Lymphocytes % (Manual) Seg Neutrophils # Seg Neutrophils # Man Lymphocytes # (Manual) D-Dimer ABG pH POC ABG pCO2 POC ABG pO2 ABG pO2 ABG HCO3 ABG O2 Saturation ABG Base Excess ABG Oxyhemoglobin ABG Sodium ABG Chloride ABG Glucose Oxyhemoglobin Carboxyhemoglobin Sodium Potassium Chloride Carbon Dioxide BUN 27 H Creatinine Glucose 192 H POC Glucose 173 H 253 H Hemoglobin A1c Magnesium Ferritin AST ALT Alkaline Phosphatase Lactate Dehydrogenase C-Reactive Protein Total Protein Albumin 3.0 L Arterial Blood Glucose Coronavirus (PCR) 04/21/21 04/21/21 04/21/21 07:58 12:05 16:08 WBC MCV MCH MCHC RDW Lymph % (Auto) Park % (Auto) Eos % (Auto) Lymph # (Auto) Park # (Auto) Eos # (Auto) Baso # (Auto) Seg Neutrophils % Seg Neuts % (Manual) Lymphocytes % (Manual) Seg Neutrophils # Seg Neutrophils # Man Lymphocytes # (Manual) D-Dimer ABG pH POC ABG pCO2 POC ABG pO2 ABG pO2 ABG HCO3 ABG O2 Saturation ABG Base Excess ABG Oxyhemoglobin ABG Sodium ABG Chloride ABG Glucose Oxyhemoglobin Carboxyhemoglobin Sodium Potassium Chloride Carbon Dioxide BUN Creatinine Glucose POC Glucose 140 H 252 H 214 H Hemoglobin A1c Magnesium Ferritin AST ALT Alkaline Phosphatase Lactate Dehydrogenase C-Reactive Protein Total Protein Albumin Arterial Blood Glucose Coronavirus (PCR) 04/21/21 04/22/21 04/22/21 21:42 08:37 12:01 WBC MCV MCH MCHC RDW Lymph % (Auto) Park % (Auto) Eos % (Auto) Lymph # (Auto) Park # (Auto) Eos # (Auto) Baso # (Auto) Seg Neutrophils % Seg Neuts % (Manual) Lymphocytes % (Manual) Seg Neutrophils # Seg Neutrophils # Man Lymphocytes # (Manual) D-Dimer ABG pH 7.457 H POC ABG pCO2 POC ABG pO2 49.4 L ABG pO2 ABG HCO3 ABG O2 Saturation ABG Base Excess ABG Oxyhemoglobin 85.6 L ABG Sodium ABG Chloride ABG Glucose 121 H Oxyhemoglobin Carboxyhemoglobin 0.3 L Sodium Potassium Chloride Carbon Dioxide BUN Creatinine Glucose POC Glucose 162 H 227 H Hemoglobin A1c Magnesium Ferritin AST ALT Alkaline Phosphatase Lactate Dehydrogenase C-Reactive Protein Total Protein Albumin Arterial Blood Glucose 121 H Coronavirus (PCR) 04/22/21 04/22/21 04/23/21 16:26 22:23 04:52 WBC MCV MCH MCHC RDW 15.7 H Lymph % (Auto) Park % (Auto) Eos % (Auto) Lymph # (Auto) Park # (Auto) Eos # (Auto) Baso # (Auto) Seg Neutrophils % Seg Neuts % (Manual) Lymphocytes % (Manual) Seg Neutrophils # Seg Neutrophils # Man Lymphocytes # (Manual) D-Dimer ABG pH POC ABG pCO2 POC ABG pO2 ABG pO2 ABG HCO3 ABG O2 Saturation ABG Base Excess ABG Oxyhemoglobin ABG Sodium ABG Chloride ABG Glucose Oxyhemoglobin Carboxyhemoglobin Sodium Potassium Chloride Carbon Dioxide BUN Creatinine Glucose POC Glucose 200 H 136 H Hemoglobin A1c Magnesium Ferritin AST ALT Alkaline Phosphatase Lactate Dehydrogenase C-Reactive Protein Total Protein Albumin Arterial Blood Glucose Coronavirus (PCR) 04/23/21 04/23/21 04/23/21 04:52 12:06 17:41 WBC MCV MCH MCHC RDW Lymph % (Auto) Park % (Auto) Eos % (Auto) Lymph # (Auto) Park # (Auto) Eos # (Auto) Baso # (Auto) Seg Neutrophils % Seg Neuts % (Manual) Lymphocytes % (Manual) Seg Neutrophils # Seg Neutrophils # Man Lymphocytes # (Manual) D-Dimer ABG pH POC ABG pCO2 POC ABG pO2 ABG pO2 ABG HCO3 ABG O2 Saturation ABG Base Excess ABG Oxyhemoglobin ABG Sodium ABG Chloride ABG Glucose Oxyhemoglobin Carboxyhemoglobin Sodium 136 L Potassium Chloride 97.7 L Carbon Dioxide BUN 23 H Creatinine Glucose 101 H POC Glucose 202 H 169 H Hemoglobin A1c Magnesium Ferritin AST 46 H ALT Alkaline Phosphatase Lactate Dehydrogenase C-Reactive Protein Total Protein Albumin 3.3 L Arterial Blood Glucose Coronavirus (PCR) 04/23/21 04/24/21 04/24/21 23:08 05:17 08:38 WBC MCV MCH MCHC RDW Lymph % (Auto) Park % (Auto) Eos % (Auto) Lymph # (Auto) Park # (Auto) Eos # (Auto) Baso # (Auto) Seg Neutrophils % Seg Neuts % (Manual) Lymphocytes % (Manual) Seg Neutrophils # Seg Neutrophils # Man Lymphocytes # (Manual) D-Dimer ABG pH POC ABG pCO2 POC ABG pO2 ABG pO2 ABG HCO3 ABG O2 Saturation ABG Base Excess ABG Oxyhemoglobin ABG Sodium ABG Chloride ABG Glucose Oxyhemoglobin Carboxyhemoglobin Sodium Potassium Chloride Carbon Dioxide BUN Creatinine Glucose POC Glucose 111 H 108 H 126 H Hemoglobin A1c Magnesium Ferritin AST ALT Alkaline Phosphatase Lactate Dehydrogenase C-Reactive Protein Total Protein Albumin Arterial Blood Glucose Coronavirus (PCR) 04/24/21 04/24/21 04/24/21 11:54 17:57 21:23 WBC MCV MCH MCHC RDW Lymph % (Auto) Park % (Auto) Eos % (Auto) Lymph # (Auto) Park # (Auto) Eos # (Auto) Baso # (Auto) Seg Neutrophils % Seg Neuts % (Manual) Lymphocytes % (Manual) Seg Neutrophils # Seg Neutrophils # Man Lymphocytes # (Manual) D-Dimer ABG pH POC ABG pCO2 POC ABG pO2 ABG pO2 ABG HCO3 ABG O2 Saturation ABG Base Excess ABG Oxyhemoglobin ABG Sodium ABG Chloride ABG Glucose Oxyhemoglobin Carboxyhemoglobin Sodium Potassium Chloride Carbon Dioxide BUN Creatinine Glucose POC Glucose 147 H 177 H 138 H Hemoglobin A1c Magnesium Ferritin AST ALT Alkaline Phosphatase Lactate Dehydrogenase C-Reactive Protein Total Protein Albumin Arterial Blood Glucose Coronavirus (PCR) 04/25/21 04/25/21 04/25/21 07:06 11:23 15:43 WBC MCV MCH MCHC RDW Lymph % (Auto) Park % (Auto) Eos % (Auto) Lymph # (Auto) Park # (Auto) Eos # (Auto) Baso # (Auto) Seg Neutrophils % Seg Neuts % (Manual) Lymphocytes % (Manual) Seg Neutrophils # Seg Neutrophils # Man Lymphocytes # (Manual) D-Dimer ABG pH POC ABG pCO2 POC ABG pO2 ABG pO2 ABG HCO3 ABG O2 Saturation ABG Base Excess ABG Oxyhemoglobin ABG Sodium ABG Chloride ABG Glucose Oxyhemoglobin Carboxyhemoglobin Sodium Potassium Chloride Carbon Dioxide BUN Creatinine Glucose POC Glucose 147 H 169 H 227 H Hemoglobin A1c Magnesium Ferritin AST ALT Alkaline Phosphatase Lactate Dehydrogenase C-Reactive Protein Total Protein Albumin Arterial Blood Glucose Coronavirus (PCR) 04/25/21 04/26/21 04/26/21 21:22 02:45 05:15 WBC MCV MCH MCHC RDW Lymph % (Auto) Park % (Auto) Eos % (Auto) Lymph # (Auto) Park # (Auto) Eos # (Auto) Baso # (Auto) Seg Neutrophils % Seg Neuts % (Manual) Lymphocytes % (Manual) Seg Neutrophils # Seg Neutrophils # Man Lymphocytes # (Manual) D-Dimer ABG pH POC ABG pCO2 POC ABG pO2 70.7 L ABG pO2 ABG HCO3 ABG O2 Saturation ABG Base Excess ABG Oxyhemoglobin 93.0 L ABG Sodium 132.7 L ABG Chloride ABG Glucose 115 H Oxyhemoglobin Carboxyhemoglobin Sodium Potassium Chloride 95.8 L Carbon Dioxide 32 H BUN 20 H Creatinine Glucose 102 H POC Glucose 196 H Hemoglobin A1c Magnesium Ferritin AST ALT Alkaline Phosphatase Lactate Dehydrogenase C-Reactive Protein Total Protein Albumin Arterial Blood Glucose 115 H Coronavirus (PCR) 04/26/21 04/26/21 04/26/21 11:49 16:09 21:07 WBC MCV MCH MCHC RDW Lymph % (Auto) Park % (Auto) Eos % (Auto) Lymph # (Auto) Park # (Auto) Eos # (Auto) Baso # (Auto) Seg Neutrophils % Seg Neuts % (Manual) Lymphocytes % (Manual) Seg Neutrophils # Seg Neutrophils # Man Lymphocytes # (Manual) D-Dimer ABG pH POC ABG pCO2 POC ABG pO2 ABG pO2 ABG HCO3 ABG O2 Saturation ABG Base Excess ABG Oxyhemoglobin ABG Sodium ABG Chloride ABG Glucose Oxyhemoglobin Carboxyhemoglobin Sodium Potassium Chloride Carbon Dioxide BUN Creatinine Glucose POC Glucose 114 H 188 H 136 H Hemoglobin A1c Magnesium Ferritin AST ALT Alkaline Phosphatase Lactate Dehydrogenase C-Reactive Protein Total Protein Albumin Arterial Blood Glucose Coronavirus (PCR) 04/27/21 04/27/21 04/28/21 17:34 22:12 08:26 WBC MCV MCH MCHC RDW Lymph % (Auto) Park % (Auto) Eos % (Auto) Lymph # (Auto) Park # (Auto) Eos # (Auto) Baso # (Auto) Seg Neutrophils % Seg Neuts % (Manual) Lymphocytes % (Manual) Seg Neutrophils # Seg Neutrophils # Man Lymphocytes # (Manual) D-Dimer ABG pH POC ABG pCO2 POC ABG pO2 ABG pO2 ABG HCO3 ABG O2 Saturation ABG Base Excess ABG Oxyhemoglobin ABG Sodium ABG Chloride ABG Glucose Oxyhemoglobin Carboxyhemoglobin Sodium Potassium Chloride Carbon Dioxide BUN Creatinine Glucose POC Glucose 128 H 159 H 69 L Hemoglobin A1c Magnesium Ferritin AST ALT Alkaline Phosphatase Lactate Dehydrogenase C-Reactive Protein Total Protein Albumin Arterial Blood Glucose Coronavirus (PCR) 04/28/21 04/28/21 04/29/21 12:22 21:11 06:05 WBC MCV MCH MCHC RDW Lymph % (Auto) Park % (Auto) Eos % (Auto) Lymph # (Auto) Park # (Auto) Eos # (Auto) Baso # (Auto) Seg Neutrophils % Seg Neuts % (Manual) Lymphocytes % (Manual) Seg Neutrophils # Seg Neutrophils # Man Lymphocytes # (Manual) D-Dimer ABG pH POC ABG pCO2 POC ABG pO2 ABG pO2 ABG HCO3 ABG O2 Saturation ABG Base Excess ABG Oxyhemoglobin ABG Sodium ABG Chloride ABG Glucose Oxyhemoglobin Carboxyhemoglobin Sodium 132 L Potassium Chloride 94.4 L Carbon Dioxide BUN Creatinine 0.2 L D Glucose 140 H POC Glucose 141 H 171 H Hemoglobin A1c Magnesium Ferritin AST ALT Alkaline Phosphatase Lactate Dehydrogenase C-Reactive Protein Total Protein Albumin Arterial Blood Glucose Coronavirus (PCR) 04/29/21 04/29/21 04/29/21 06:05 07:24 11:36 WBC MCV MCH MCHC 35 H RDW 15.9 H Lymph % (Auto) Park % (Auto) Eos % (Auto) Lymph # (Auto) Park # (Auto) Eos # (Auto) Baso # (Auto) Seg Neutrophils % Seg Neuts % (Manual) Lymphocytes % (Manual) Seg Neutrophils # Seg Neutrophils # Man Lymphocytes # (Manual) D-Dimer ABG pH POC ABG pCO2 POC ABG pO2 ABG pO2 ABG HCO3 ABG O2 Saturation ABG Base Excess ABG Oxyhemoglobin ABG Sodium ABG Chloride ABG Glucose Oxyhemoglobin Carboxyhemoglobin Sodium Potassium Chloride Carbon Dioxide BUN Creatinine Glucose POC Glucose 141 H 220 H Hemoglobin A1c Magnesium Ferritin AST ALT Alkaline Phosphatase Lactate Dehydrogenase C-Reactive Protein Total Protein Albumin Arterial Blood Glucose Coronavirus (PCR) 04/29/21 04/29/21 04/29/21 14:23 15:30 17:06 WBC MCV MCH MCHC RDW Lymph % (Auto) Park % (Auto) Eos % (Auto) Lymph # (Auto) Park # (Auto) Eos # (Auto) Baso # (Auto) Seg Neutrophils % Seg Neuts % (Manual) Lymphocytes % (Manual) Seg Neutrophils # Seg Neutrophils # Man Lymphocytes # (Manual) D-Dimer ABG pH POC ABG pCO2 POC ABG pO2 ABG pO2 52.6 L ABG HCO3 ABG O2 Saturation 86.4 L ABG Base Excess ABG Oxyhemoglobin ABG Sodium ABG Chloride ABG Glucose Oxyhemoglobin 84.6 L Carboxyhemoglobin Sodium Potassium Chloride Carbon Dioxide BUN Creatinine Glucose POC Glucose 173 H 158 H Hemoglobin A1c Magnesium Ferritin AST ALT Alkaline Phosphatase Lactate Dehydrogenase C-Reactive Protein Total Protein Albumin Arterial Blood Glucose Coronavirus (PCR) 04/29/21 04/30/21 04/30/21 21:27 07:16 08:00 WBC MCV MCH MCHC RDW 16.1 H Lymph % (Auto) Park % (Auto) Eos % (Auto) Lymph # (Auto) Park # (Auto) Eos # (Auto) Baso # (Auto) Seg Neutrophils % Seg Neuts % (Manual) Lymphocytes % (Manual) Seg Neutrophils # Seg Neutrophils # Man Lymphocytes # (Manual) D-Dimer ABG pH POC ABG pCO2 POC ABG pO2 ABG pO2 ABG HCO3 ABG O2 Saturation ABG Base Excess ABG Oxyhemoglobin ABG Sodium ABG Chloride ABG Glucose Oxyhemoglobin Carboxyhemoglobin Sodium Potassium Chloride Carbon Dioxide BUN Creatinine Glucose POC Glucose 244 H 175 H Hemoglobin A1c Magnesium Ferritin AST ALT Alkaline Phosphatase Lactate Dehydrogenase C-Reactive Protein Total Protein Albumin Arterial Blood Glucose Coronavirus (PCR) 04/30/21 04/30/21 04/30/21 08:00 08:00 11:03 WBC MCV MCH MCHC RDW Lymph % (Auto) Park % (Auto) Eos % (Auto) Lymph # (Auto) Park # (Auto) Eos # (Auto) Baso # (Auto) Seg Neutrophils % Seg Neuts % (Manual) Lymphocytes % (Manual) Seg Neutrophils # Seg Neutrophils # Man Lymphocytes # (Manual) D-Dimer 1796.87 H ABG pH POC ABG pCO2 POC ABG pO2 ABG pO2 ABG HCO3 ABG O2 Saturation ABG Base Excess ABG Oxyhemoglobin ABG Sodium ABG Chloride ABG Glucose Oxyhemoglobin Carboxyhemoglobin Sodium 135 L Potassium Chloride 96.3 L Carbon Dioxide BUN Creatinine 0.2 L Glucose 153 H POC Glucose 183 H Hemoglobin A1c Magnesium Ferritin AST 41 H ALT 76 H Alkaline Phosphatase 160 H Lactate Dehydrogenase 522 H C-Reactive Protein Total Protein 6.1 L Albumin 3.1 L Arterial Blood Glucose Coronavirus (PCR) 04/30/21 04/30/21 05/01/21 17:04 22:17 05:39 WBC MCV MCH MCHC RDW Lymph % (Auto) Park % (Auto) Eos % (Auto) Lymph # (Auto) Park # (Auto) Eos # (Auto) Baso # (Auto) Seg Neutrophils % Seg Neuts % (Manual) Lymphocytes % (Manual) Seg Neutrophils # Seg Neutrophils # Man Lymphocytes # (Manual) D-Dimer ABG pH POC ABG pCO2 POC ABG pO2 ABG pO2 ABG HCO3 ABG O2 Saturation ABG Base Excess ABG Oxyhemoglobin ABG Sodium ABG Chloride ABG Glucose Oxyhemoglobin Carboxyhemoglobin Sodium 133 L Potassium Chloride 92.1 L Carbon Dioxide BUN 24 H Creatinine 0.4 L D Glucose 269 H POC Glucose 167 H 208 H Hemoglobin A1c Magnesium Ferritin AST ALT 66 H Alkaline Phosphatase 142 H Lactate Dehydrogenase C-Reactive Protein Total Protein Albumin 3.2 L Arterial Blood Glucose Coronavirus (PCR) 05/01/21 05/01/21 05/01/21 05:39 05:39 07:45 WBC MCV MCH MCHC RDW 16.0 H Lymph % (Auto) Park % (Auto) Eos % (Auto) Lymph # (Auto) Park # (Auto) Eos # (Auto) Baso # (Auto) Seg Neutrophils % Seg Neuts % (Manual) Lymphocytes % (Manual) Seg Neutrophils # Seg Neutrophils # Man Lymphocytes # (Manual) D-Dimer 3984.95 H ABG pH POC ABG pCO2 POC ABG pO2 ABG pO2 ABG HCO3 ABG O2 Saturation ABG Base Excess ABG Oxyhemoglobin ABG Sodium ABG Chloride ABG Glucose Oxyhemoglobin Carboxyhemoglobin Sodium Potassium Chloride Carbon Dioxide BUN Creatinine Glucose POC Glucose 229 H Hemoglobin A1c Magnesium Ferritin AST ALT Alkaline Phosphatase Lactate Dehydrogenase C-Reactive Protein Total Protein Albumin Arterial Blood Glucose Coronavirus (PCR) 05/01/21 05/01/21 05/01/21 12:10 15:46 21:06 WBC MCV MCH MCHC RDW Lymph % (Auto) Park % (Auto) Eos % (Auto) Lymph # (Auto) Park # (Auto) Eos # (Auto) Baso # (Auto) Seg Neutrophils % Seg Neuts % (Manual) Lymphocytes % (Manual) Seg Neutrophils # Seg Neutrophils # Man Lymphocytes # (Manual) D-Dimer ABG pH POC ABG pCO2 POC ABG pO2 ABG pO2 ABG HCO3 ABG O2 Saturation ABG Base Excess ABG Oxyhemoglobin ABG Sodium ABG Chloride ABG Glucose Oxyhemoglobin Carboxyhemoglobin Sodium Potassium Chloride Carbon Dioxide BUN Creatinine Glucose POC Glucose 296 H 279 H 232 H Hemoglobin A1c Magnesium Ferritin AST ALT Alkaline Phosphatase Lactate Dehydrogenase C-Reactive Protein Total Protein Albumin Arterial Blood Glucose Coronavirus (PCR) 05/02/21 05/02/21 05/02/21 04:55 04:55 04:55 WBC MCV MCH MCHC RDW 16.1 H Lymph % (Auto) Park % (Auto) Eos % (Auto) Lymph # (Auto) Park # (Auto) Eos # (Auto) Baso # (Auto) Seg Neutrophils % Seg Neuts % (Manual) Lymphocytes % (Manual) Seg Neutrophils # Seg Neutrophils # Man Lymphocytes # (Manual) D-Dimer 1401.08 H ABG pH POC ABG pCO2 POC ABG pO2 ABG pO2 ABG HCO3 ABG O2 Saturation ABG Base Excess ABG Oxyhemoglobin ABG Sodium ABG Chloride ABG Glucose Oxyhemoglobin Carboxyhemoglobin Sodium 131 L Potassium Chloride 95.5 L Carbon Dioxide BUN 20 H Creatinine 0.3 L Glucose 288 H POC Glucose Hemoglobin A1c Magnesium Ferritin AST ALT Alkaline Phosphatase Lactate Dehydrogenase C-Reactive Protein Total Protein 6.0 L Albumin 3.1 L Arterial Blood Glucose Coronavirus (PCR) 05/02/21 05/02/21 05/02/21 07:53 11:45 15:25 WBC MCV MCH MCHC RDW Lymph % (Auto) Park % (Auto) Eos % (Auto) Lymph # (Auto) Park # (Auto) Eos # (Auto) Baso # (Auto) Seg Neutrophils % Seg Neuts % (Manual) Lymphocytes % (Manual) Seg Neutrophils # Seg Neutrophils # Man Lymphocytes # (Manual) D-Dimer ABG pH POC ABG pCO2 POC ABG pO2 ABG pO2 ABG HCO3 ABG O2 Saturation ABG Base Excess ABG Oxyhemoglobin ABG Sodium ABG Chloride ABG Glucose Oxyhemoglobin Carboxyhemoglobin Sodium Potassium Chloride Carbon Dioxide BUN Creatinine Glucose POC Glucose 180 H 228 H 275 H Hemoglobin A1c Magnesium Ferritin AST ALT Alkaline Phosphatase Lactate Dehydrogenase C-Reactive Protein Total Protein Albumin Arterial Blood Glucose Coronavirus (PCR) 05/02/21 05/03/21 05/03/21 22:56 04:30 04:49 WBC MCV MCH MCHC RDW Lymph % (Auto) Park % (Auto) Eos % (Auto) Lymph # (Auto) Park # (Auto) Eos # (Auto) Baso # (Auto) Seg Neutrophils % Seg Neuts % (Manual) Lymphocytes % (Manual) Seg Neutrophils # Seg Neutrophils # Man Lymphocytes # (Manual) D-Dimer ABG pH 7.229 L POC ABG pCO2 POC ABG pO2 65.3 L ABG pO2 ABG HCO3 ABG O2 Saturation ABG Base Excess ABG Oxyhemoglobin 87.8 L ABG Sodium 133.0 L ABG Chloride 97.0 L ABG Glucose 403 H Oxyhemoglobin Carboxyhemoglobin Sodium 130 L Potassium Chloride 94.9 L Carbon Dioxide BUN 20 H Creatinine 0.5 L D Glucose 359 H POC Glucose 293 H Hemoglobin A1c Magnesium Ferritin AST 54 H ALT 75 H Alkaline Phosphatase 138 H Lactate Dehydrogenase C-Reactive Protein Total Protein Albumin 3.6 L Arterial Blood Glucose 403 H Coronavirus (PCR) 05/03/21 05/03/21 05/03/21 05:27 11:26 17:57 WBC MCV MCH MCHC RDW Lymph % (Auto) Park % (Auto) Eos % (Auto) Lymph # (Auto) Park # (Auto) Eos # (Auto) Baso # (Auto) Seg Neutrophils % Seg Neuts % (Manual) Lymphocytes % (Manual) Seg Neutrophils # Seg Neutrophils # Man Lymphocytes # (Manual) D-Dimer ABG pH POC ABG pCO2 POC ABG pO2 ABG pO2 ABG HCO3 ABG O2 Saturation ABG Base Excess ABG Oxyhemoglobin ABG Sodium ABG Chloride ABG Glucose Oxyhemoglobin Carboxyhemoglobin Sodium Potassium Chloride Carbon Dioxide BUN Creatinine Glucose POC Glucose 361 H 297 H 226 H Hemoglobin A1c Magnesium Ferritin AST ALT Alkaline Phosphatase Lactate Dehydrogenase C-Reactive Protein Total Protein Albumin Arterial Blood Glucose Coronavirus (PCR) 05/03/21 05/04/21 05/04/21 23:12 05:12 07:30 WBC MCV MCH MCHC RDW Lymph % (Auto) Park % (Auto) Eos % (Auto) Lymph # (Auto) Park # (Auto) Eos # (Auto) Baso # (Auto) Seg Neutrophils % Seg Neuts % (Manual) Lymphocytes % (Manual) Seg Neutrophils # Seg Neutrophils # Man Lymphocytes # (Manual) D-Dimer ABG pH POC ABG pCO2 POC ABG pO2 ABG pO2 ABG HCO3 ABG O2 Saturation ABG Base Excess ABG Oxyhemoglobin ABG Sodium ABG Chloride ABG Glucose Oxyhemoglobin Carboxyhemoglobin Sodium Potassium Chloride Carbon Dioxide BUN Creatinine Glucose POC Glucose 282 H 285 H 254 H Hemoglobin A1c Magnesium Ferritin AST ALT Alkaline Phosphatase Lactate Dehydrogenase C-Reactive Protein Total Protein Albumin Arterial Blood Glucose Coronavirus (PCR) 05/04/21 05/04/21 05/04/21 08:58 11:45 16:07 WBC MCV MCH MCHC RDW Lymph % (Auto) Park % (Auto) Eos % (Auto) Lymph # (Auto) Park # (Auto) Eos # (Auto) Baso # (Auto) Seg Neutrophils % Seg Neuts % (Manual) Lymphocytes % (Manual) Seg Neutrophils # Seg Neutrophils # Man Lymphocytes # (Manual) D-Dimer ABG pH POC ABG pCO2 POC ABG pO2 ABG pO2 ABG HCO3 ABG O2 Saturation ABG Base Excess ABG Oxyhemoglobin ABG Sodium ABG Chloride ABG Glucose Oxyhemoglobin Carboxyhemoglobin Sodium 134 L Potassium Chloride Carbon Dioxide BUN 20 H Creatinine 0.3 L Glucose 267 H POC Glucose 244 H 297 H Hemoglobin A1c Magnesium Ferritin AST ALT Alkaline Phosphatase Lactate Dehydrogenase C-Reactive Protein Total Protein 6.0 L Albumin 3.2 L Arterial Blood Glucose Coronavirus (PCR) 05/04/21 05/05/21 05/05/21 23:32 05:00 05:13 WBC MCV MCH MCHC RDW Lymph % (Auto) Park % (Auto) Eos % (Auto) Lymph # (Auto) Park # (Auto) Eos # (Auto) Baso # (Auto) Seg Neutrophils % Seg Neuts % (Manual) Lymphocytes % (Manual) Seg Neutrophils # Seg Neutrophils # Man Lymphocytes # (Manual) D-Dimer ABG pH POC ABG pCO2 POC ABG pO2 ABG pO2 ABG HCO3 ABG O2 Saturation ABG Base Excess ABG Oxyhemoglobin ABG Sodium ABG Chloride ABG Glucose Oxyhemoglobin Carboxyhemoglobin Sodium 132 L Potassium Chloride 96.4 L Carbon Dioxide BUN 22 H Creatinine 0.3 L Glucose 228 H POC Glucose 154 H 260 H Hemoglobin A1c Magnesium Ferritin AST ALT 67 H Alkaline Phosphatase Lactate Dehydrogenase C-Reactive Protein Total Protein 6.1 L Albumin 3.2 L Arterial Blood Glucose Coronavirus (PCR) 05/05/21 05/05/21 05/05/21 11:32 17:49 23:07 WBC MCV MCH MCHC RDW Lymph % (Auto) Park % (Auto) Eos % (Auto) Lymph # (Auto) Park # (Auto) Eos # (Auto) Baso # (Auto) Seg Neutrophils % Seg Neuts % (Manual) Lymphocytes % (Manual) Seg Neutrophils # Seg Neutrophils # Man Lymphocytes # (Manual) D-Dimer ABG pH POC ABG pCO2 POC ABG pO2 ABG pO2 ABG HCO3 ABG O2 Saturation ABG Base Excess ABG Oxyhemoglobin ABG Sodium ABG Chloride ABG Glucose Oxyhemoglobin Carboxyhemoglobin Sodium Potassium Chloride Carbon Dioxide BUN Creatinine Glucose POC Glucose 279 H 308 H 213 H Hemoglobin A1c Magnesium Ferritin AST ALT Alkaline Phosphatase Lactate Dehydrogenase C-Reactive Protein Total Protein Albumin Arterial Blood Glucose Coronavirus (PCR) 05/06/21 05/06/21 05/06/21 05:00 05:00 05:20 WBC MCV MCH MCHC RDW 16.8 H Lymph % (Auto) Park % (Auto) Eos % (Auto) Lymph # (Auto) Park # (Auto) Eos # (Auto) Baso # (Auto) Seg Neutrophils % Seg Neuts % (Manual) 99.0 H Lymphocytes % (Manual) Seg Neutrophils # Seg Neutrophils # Man 10.9 H Lymphocytes # (Manual) 0.0 L D-Dimer ABG pH POC ABG pCO2 POC ABG pO2 ABG pO2 ABG HCO3 ABG O2 Saturation ABG Base Excess ABG Oxyhemoglobin ABG Sodium ABG Chloride ABG Glucose Oxyhemoglobin Carboxyhemoglobin Sodium 133 L Potassium Chloride Carbon Dioxide BUN 21 H Creatinine 0.3 L Glucose 259 H POC Glucose 308 H Hemoglobin A1c Magnesium Ferritin AST ALT Alkaline Phosphatase Lactate Dehydrogenase C-Reactive Protein Total Protein Albumin 3.2 L Arterial Blood Glucose Coronavirus (PCR) 05/06/21 05/06/21 05/06/21 11:24 17:54 21:32 WBC MCV MCH MCHC RDW Lymph % (Auto) Park % (Auto) Eos % (Auto) Lymph # (Auto) Park # (Auto) Eos # (Auto) Baso # (Auto) Seg Neutrophils % Seg Neuts % (Manual) Lymphocytes % (Manual) Seg Neutrophils # Seg Neutrophils # Man Lymphocytes # (Manual) D-Dimer ABG pH POC ABG pCO2 POC ABG pO2 ABG pO2 ABG HCO3 ABG O2 Saturation ABG Base Excess ABG Oxyhemoglobin ABG Sodium ABG Chloride ABG Glucose Oxyhemoglobin Carboxyhemoglobin Sodium Potassium Chloride Carbon Dioxide BUN Creatinine Glucose POC Glucose 262 H 124 H 246 H Hemoglobin A1c Magnesium Ferritin AST ALT Alkaline Phosphatase Lactate Dehydrogenase C-Reactive Protein Total Protein Albumin Arterial Blood Glucose Coronavirus (PCR) 05/06/21 05/07/21 05/07/21 23:10 04:54 04:54 WBC MCV MCH MCHC RDW Lymph % (Auto) Park % (Auto) Eos % (Auto) Lymph # (Auto) Park # (Auto) Eos # (Auto) Baso # (Auto) Seg Neutrophils % Seg Neuts % (Manual) Lymphocytes % (Manual) Seg Neutrophils # Seg Neutrophils # Man Lymphocytes # (Manual) D-Dimer 1609.28 H ABG pH POC ABG pCO2 POC ABG pO2 ABG pO2 ABG HCO3 ABG O2 Saturation ABG Base Excess ABG Oxyhemoglobin ABG Sodium ABG Chloride ABG Glucose Oxyhemoglobin Carboxyhemoglobin Sodium 136 L Potassium Chloride Carbon Dioxide BUN 23 H Creatinine 0.3 L Glucose 110 H POC Glucose 249 H Hemoglobin A1c Magnesium Ferritin AST ALT Alkaline Phosphatase Lactate Dehydrogenase C-Reactive Protein Total Protein 6.2 L Albumin 3.0 L Arterial Blood Glucose Coronavirus (PCR) 05/07/21 05/07/21 05/07/21 04:54 04:54 11:41 WBC MCV MCH MCHC RDW Lymph % (Auto) Park % (Auto) Eos % (Auto) Lymph # (Auto) Park # (Auto) Eos # (Auto) Baso # (Auto) Seg Neutrophils % Seg Neuts % (Manual) Lymphocytes % (Manual) Seg Neutrophils # Seg Neutrophils # Man Lymphocytes # (Manual) D-Dimer ABG pH POC ABG pCO2 POC ABG pO2 ABG pO2 ABG HCO3 ABG O2 Saturation ABG Base Excess ABG Oxyhemoglobin ABG Sodium ABG Chloride ABG Glucose Oxyhemoglobin Carboxyhemoglobin Sodium Potassium Chloride Carbon Dioxide BUN Creatinine Glucose POC Glucose 118 H Hemoglobin A1c Magnesium Ferritin 296.1 H AST ALT Alkaline Phosphatase Lactate Dehydrogenase 724 H C-Reactive Protein Total Protein Albumin Arterial Blood Glucose Coronavirus (PCR) 05/07/21 05/07/21 05/08/21 16:43 22:34 06:44 WBC MCV MCH MCHC RDW Lymph % (Auto) Park % (Auto) Eos % (Auto) Lymph # (Auto) Park # (Auto) Eos # (Auto) Baso # (Auto) Seg Neutrophils % Seg Neuts % (Manual) Lymphocytes % (Manual) Seg Neutrophils # Seg Neutrophils # Man Lymphocytes # (Manual) D-Dimer ABG pH POC ABG pCO2 POC ABG pO2 ABG pO2 ABG HCO3 ABG O2 Saturation ABG Base Excess ABG Oxyhemoglobin ABG Sodium ABG Chloride ABG Glucose Oxyhemoglobin Carboxyhemoglobin Sodium Potassium Chloride Carbon Dioxide BUN Creatinine Glucose POC Glucose 159 H 233 H 235 H Hemoglobin A1c Magnesium Ferritin AST ALT Alkaline Phosphatase Lactate Dehydrogenase C-Reactive Protein Total Protein Albumin Arterial Blood Glucose Coronavirus (PCR) 05/08/21 05/08/21 05/08/21 07:49 11:56 17:13 WBC MCV MCH MCHC RDW Lymph % (Auto) Park % (Auto) Eos % (Auto) Lymph # (Auto) Park # (Auto) Eos # (Auto) Baso # (Auto) Seg Neutrophils % Seg Neuts % (Manual) Lymphocytes % (Manual) Seg Neutrophils # Seg Neutrophils # Man Lymphocytes # (Manual) D-Dimer ABG pH POC ABG pCO2 POC ABG pO2 ABG pO2 ABG HCO3 ABG O2 Saturation ABG Base Excess ABG Oxyhemoglobin ABG Sodium ABG Chloride ABG Glucose Oxyhemoglobin Carboxyhemoglobin Sodium Potassium Chloride Carbon Dioxide BUN Creatinine Glucose POC Glucose 219 H 184 H 182 H Hemoglobin A1c Magnesium Ferritin AST ALT Alkaline Phosphatase Lactate Dehydrogenase C-Reactive Protein Total Protein Albumin Arterial Blood Glucose Coronavirus (PCR) 05/08/21 05/09/21 05/09/21 23:35 05:20 05:20 WBC MCV MCH MCHC RDW Lymph % (Auto) Park % (Auto) Eos % (Auto) Lymph # (Auto) Park # (Auto) Eos # (Auto) Baso # (Auto) Seg Neutrophils % Seg Neuts % (Manual) Lymphocytes % (Manual) Seg Neutrophils # Seg Neutrophils # Man Lymphocytes # (Manual) D-Dimer 1003.87 H ABG pH POC ABG pCO2 POC ABG pO2 ABG pO2 ABG HCO3 ABG O2 Saturation ABG Base Excess ABG Oxyhemoglobin ABG Sodium ABG Chloride ABG Glucose Oxyhemoglobin Carboxyhemoglobin Sodium Potassium Chloride Carbon Dioxide BUN Creatinine Glucose POC Glucose 198 H Hemoglobin A1c Magnesium Ferritin 378.7 H AST ALT Alkaline Phosphatase Lactate Dehydrogenase C-Reactive Protein Total Protein Albumin Arterial Blood Glucose Coronavirus (PCR) 05/09/21 05/09/21 05/09/21 05:20 06:04 12:53 WBC MCV MCH MCHC RDW Lymph % (Auto) Park % (Auto) Eos % (Auto) Lymph # (Auto) Park # (Auto) Eos # (Auto) Baso # (Auto) Seg Neutrophils % Seg Neuts % (Manual) Lymphocytes % (Manual) Seg Neutrophils # Seg Neutrophils # Man Lymphocytes # (Manual) D-Dimer ABG pH POC ABG pCO2 POC ABG pO2 ABG pO2 ABG HCO3 ABG O2 Saturation ABG Base Excess ABG Oxyhemoglobin ABG Sodium ABG Chloride ABG Glucose Oxyhemoglobin Carboxyhemoglobin Sodium Potassium Chloride Carbon Dioxide BUN Creatinine Glucose POC Glucose 159 H 180 H Hemoglobin A1c Magnesium Ferritin AST ALT Alkaline Phosphatase Lactate Dehydrogenase 558 H C-Reactive Protein 2.40 H Total Protein Albumin Arterial Blood Glucose Coronavirus (PCR) 05/09/21 05/09/21 05/10/21 16:43 21:27 10:18 WBC MCV MCH MCHC RDW Lymph % (Auto) Park % (Auto) Eos % (Auto) Lymph # (Auto) Park # (Auto) Eos # (Auto) Baso # (Auto) Seg Neutrophils % Seg Neuts % (Manual) Lymphocytes % (Manual) Seg Neutrophils # Seg Neutrophils # Man Lymphocytes # (Manual) D-Dimer ABG pH POC ABG pCO2 POC ABG pO2 ABG pO2 ABG HCO3 ABG O2 Saturation ABG Base Excess ABG Oxyhemoglobin ABG Sodium ABG Chloride ABG Glucose Oxyhemoglobin Carboxyhemoglobin Sodium Potassium Chloride Carbon Dioxide BUN Creatinine Glucose POC Glucose 212 H 285 H 261 H Hemoglobin A1c Magnesium Ferritin AST ALT Alkaline Phosphatase Lactate Dehydrogenase C-Reactive Protein Total Protein Albumin Arterial Blood Glucose Coronavirus (PCR) 05/10/21 05/10/21 05/11/21 17:58 18:02 00:29 WBC MCV MCH MCHC RDW Lymph % (Auto) Park % (Auto) Eos % (Auto) Lymph # (Auto) Park # (Auto) Eos # (Auto) Baso # (Auto) Seg Neutrophils % Seg Neuts % (Manual) Lymphocytes % (Manual) Seg Neutrophils # Seg Neutrophils # Man Lymphocytes # (Manual) D-Dimer ABG pH POC ABG pCO2 POC ABG pO2 ABG pO2 ABG HCO3 ABG O2 Saturation ABG Base Excess ABG Oxyhemoglobin ABG Sodium ABG Chloride ABG Glucose Oxyhemoglobin Carboxyhemoglobin Sodium Potassium Chloride Carbon Dioxide BUN Creatinine Glucose POC Glucose 213 H 179 H 149 H Hemoglobin A1c Magnesium Ferritin AST ALT Alkaline Phosphatase Lactate Dehydrogenase C-Reactive Protein Total Protein Albumin Arterial Blood Glucose Coronavirus (PCR) 05/11/21 05/11/21 05/11/21 05:22 11:32 17:00 WBC 14.9 H MCV MCH MCHC RDW 18.9 H Lymph % (Auto) 4.9 L [place] % (Auto) Eos % (Auto) Lymph # (Auto) 0.7 L [place] # (Auto) Eos # (Auto) Baso # (Auto) 0.2 H Seg Neutrophils % Seg Neuts % (Manual) Lymphocytes % (Manual) Seg Neutrophils # 13.3 H Seg Neutrophils # Man Lymphocytes # (Manual) D-Dimer ABG pH POC ABG pCO2 POC ABG pO2 ABG pO2 ABG HCO3 ABG O2 Saturation ABG Base Excess ABG Oxyhemoglobin ABG Sodium ABG Chloride ABG Glucose Oxyhemoglobin Carboxyhemoglobin Sodium Potassium Chloride Carbon Dioxide BUN Creatinine Glucose POC Glucose 162 H 179 H Hemoglobin A1c Magnesium Ferritin AST ALT Alkaline Phosphatase Lactate Dehydrogenase C-Reactive Protein Total Protein Albumin Arterial Blood Glucose Coronavirus (PCR) 05/11/21 05/11/21 05/11/21 17:00 17:33 22:03 WBC MCV MCH MCHC RDW Lymph % (Auto) Park % (Auto) Eos % (Auto) Lymph # (Auto) Park # (Auto) Eos # (Auto) Baso # (Auto) Seg Neutrophils % Seg Neuts % (Manual) Lymphocytes % (Manual) Seg Neutrophils # Seg Neutrophils # Man Lymphocytes # (Manual) D-Dimer ABG pH POC ABG pCO2 POC ABG pO2 ABG pO2 ABG HCO3 ABG O2 Saturation ABG Base Excess ABG Oxyhemoglobin ABG Sodium ABG Chloride ABG Glucose Oxyhemoglobin Carboxyhemoglobin Sodium 135 L Potassium Chloride 97.3 L Carbon Dioxide BUN 21 H Creatinine 0.3 L Glucose 133 H POC Glucose 140 H 282 H Hemoglobin A1c Magnesium Ferritin AST ALT 60 H Alkaline Phosphatase Lactate Dehydrogenase C-Reactive Protein Total Protein Albumin 3.1 L Arterial Blood Glucose Coronavirus (PCR) 05/12/21 05/12/21 05/12/21 04:05 04:05 04:05 WBC MCV MCH MCHC RDW 18.4 H Lymph % (Auto) Park % (Auto) Eos % (Auto) Lymph # (Auto) Park # (Auto) Eos # (Auto) Baso # (Auto) Seg Neutrophils % Seg Neuts % (Manual) 94.0 H Lymphocytes % (Manual) 4.0 L Seg Neutrophils # Seg Neutrophils # Man Lymphocytes # (Manual) 0.3 L D-Dimer ABG pH POC ABG pCO2 POC ABG pO2 ABG pO2 ABG HCO3 ABG O2 Saturation ABG Base Excess ABG Oxyhemoglobin ABG Sodium ABG Chloride ABG Glucose Oxyhemoglobin Carboxyhemoglobin Sodium 136 L Potassium Chloride Carbon Dioxide BUN 18 H Creatinine 0.2 L Glucose 142 H POC Glucose Hemoglobin A1c Magnesium Ferritin 350.7 H AST ALT Alkaline Phosphatase Lactate Dehydrogenase 546 H C-Reactive Protein Total Protein 6.1 L Albumin 3.0 L Arterial Blood Glucose Coronavirus (PCR) 05/12/21 05/12/21 05/12/21 05:11 11:17 16:27 WBC MCV MCH MCHC RDW Lymph % (Auto) Park % (Auto) Eos % (Auto) Lymph # (Auto) Park # (Auto) Eos # (Auto) Baso # (Auto) Seg Neutrophils % Seg Neuts % (Manual) Lymphocytes % (Manual) Seg Neutrophils # Seg Neutrophils # Man Lymphocytes # (Manual) D-Dimer ABG pH POC ABG pCO2 POC ABG pO2 ABG pO2 ABG HCO3 ABG O2 Saturation ABG Base Excess ABG Oxyhemoglobin ABG Sodium ABG Chloride ABG Glucose Oxyhemoglobin Carboxyhemoglobin Sodium Potassium Chloride Carbon Dioxide BUN Creatinine Glucose POC Glucose 152 H 190 H 261 H Hemoglobin A1c Magnesium Ferritin AST ALT Alkaline Phosphatase Lactate Dehydrogenase C-Reactive Protein Total Protein Albumin Arterial Blood Glucose Coronavirus (PCR) 05/12/21 05/13/21 05/13/21 20:55 11:08 21:41 WBC MCV MCH MCHC RDW Lymph % (Auto) Park % (Auto) Eos % (Auto) Lymph # (Auto) Park # (Auto) Eos # (Auto) Baso # (Auto) Seg Neutrophils % Seg Neuts % (Manual) Lymphocytes % (Manual) Seg Neutrophils # Seg Neutrophils # Man Lymphocytes # (Manual) D-Dimer ABG pH POC ABG pCO2 POC ABG pO2 ABG pO2 ABG HCO3 ABG O2 Saturation ABG Base Excess ABG Oxyhemoglobin ABG Sodium ABG Chloride ABG Glucose Oxyhemoglobin Carboxyhemoglobin Sodium Potassium Chloride Carbon Dioxide BUN Creatinine Glucose POC Glucose 231 H 106 H 174 H Hemoglobin A1c Magnesium Ferritin AST ALT Alkaline Phosphatase Lactate Dehydrogenase C-Reactive Protein Total Protein Albumin Arterial Blood Glucose Coronavirus (PCR) 05/14/21 05/14/21 05/14/21 00:53 02:23 06:06 WBC MCV MCH MCHC RDW Lymph % (Auto) Park % (Auto) Eos % (Auto) Lymph # (Auto) Park # (Auto) Eos # (Auto) Baso # (Auto) Seg Neutrophils % Seg Neuts % (Manual) Lymphocytes % (Manual) Seg Neutrophils # Seg Neutrophils # Man Lymphocytes # (Manual) D-Dimer ABG pH POC ABG pCO2 POC ABG pO2 ABG pO2 130.3 H ABG HCO3 30.6 H ABG O2 Saturation ABG Base Excess 4.9 H ABG Oxyhemoglobin ABG Sodium ABG Chloride ABG Glucose Oxyhemoglobin Carboxyhemoglobin Sodium Potassium Chloride Carbon Dioxide BUN Creatinine Glucose POC Glucose 229 H 119 H Hemoglobin A1c Magnesium Ferritin AST ALT Alkaline Phosphatase Lactate Dehydrogenase C-Reactive Protein Total Protein Albumin Arterial Blood Glucose Coronavirus (PCR) 05/14/21 05/14/21 05/14/21 07:13 07:13 07:13 WBC MCV MCH MCHC RDW Lymph % (Auto) Park % (Auto) Eos % (Auto) Lymph # (Auto) Park # (Auto) Eos # (Auto) Baso # (Auto) Seg Neutrophils % Seg Neuts % (Manual) Lymphocytes % (Manual) Seg Neutrophils # Seg Neutrophils # Man Lymphocytes # (Manual) D-Dimer 712.80 H ABG pH POC ABG pCO2 POC ABG pO2 ABG pO2 ABG HCO3 ABG O2 Saturation ABG Base Excess ABG Oxyhemoglobin ABG Sodium ABG Chloride ABG Glucose Oxyhemoglobin Carboxyhemoglobin Sodium 133 L Potassium Chloride 95.5 L Carbon Dioxide 32 H BUN Creatinine 0.2 L Glucose 137 H POC Glucose Hemoglobin A1c Magnesium Ferritin 283.5 H AST ALT 63 H Alkaline Phosphatase Lactate Dehydrogenase 563 H C-Reactive Protein Total Protein 6.1 L Albumin 3.0 L Arterial Blood Glucose Coronavirus (PCR) 05/14/21 05/14/21 05/14/21 12:21 15:33 21:50 WBC MCV MCH MCHC RDW Lymph % (Auto) Park % (Auto) Eos % (Auto) Lymph # (Auto) Park # (Auto) Eos # (Auto) Baso # (Auto) Seg Neutrophils % Seg Neuts % (Manual) Lymphocytes % (Manual) Seg Neutrophils # Seg Neutrophils # Man Lymphocytes # (Manual) D-Dimer ABG pH POC ABG pCO2 POC ABG pO2 ABG pO2 ABG HCO3 ABG O2 Saturation ABG Base Excess ABG Oxyhemoglobin ABG Sodium ABG Chloride ABG Glucose Oxyhemoglobin Carboxyhemoglobin Sodium Potassium Chloride Carbon Dioxide BUN Creatinine Glucose POC Glucose 143 H 204 H 202 H Hemoglobin A1c Magnesium Ferritin AST ALT Alkaline Phosphatase Lactate Dehydrogenase C-Reactive Protein Total Protein Albumin Arterial Blood Glucose Coronavirus (PCR) 05/15/21 05/15/21 05/15/21 05:05 11:12 16:39 WBC MCV MCH MCHC RDW Lymph % (Auto) Park % (Auto) Eos % (Auto) Lymph # (Auto) Park # (Auto) Eos # (Auto) Baso # (Auto) Seg Neutrophils % Seg Neuts % (Manual) Lymphocytes % (Manual) Seg Neutrophils # Seg Neutrophils # Man Lymphocytes # (Manual) D-Dimer ABG pH POC ABG pCO2 POC ABG pO2 ABG pO2 ABG HCO3 ABG O2 Saturation ABG Base Excess ABG Oxyhemoglobin ABG Sodium ABG Chloride ABG Glucose Oxyhemoglobin Carboxyhemoglobin Sodium Potassium Chloride Carbon Dioxide BUN Creatinine Glucose POC Glucose 125 H 201 H 241 H Hemoglobin A1c Magnesium Ferritin AST ALT Alkaline Phosphatase Lactate Dehydrogenase C-Reactive Protein Total Protein Albumin Arterial Blood Glucose Coronavirus (PCR) 05/15/21 05/16/21 05/16/21 21:31 05:04 10:40 WBC MCV MCH MCHC RDW Lymph % (Auto) Park % (Auto) Eos % (Auto) Lymph # (Auto) Park # (Auto) Eos # (Auto) Baso # (Auto) Seg Neutrophils % Seg Neuts % (Manual) Lymphocytes % (Manual) Seg Neutrophils # Seg Neutrophils # Man Lymphocytes # (Manual) D-Dimer ABG pH POC ABG pCO2 POC ABG pO2 ABG pO2 ABG HCO3 ABG O2 Saturation ABG Base Excess ABG Oxyhemoglobin ABG Sodium ABG Chloride ABG Glucose Oxyhemoglobin Carboxyhemoglobin Sodium Potassium Chloride Carbon Dioxide BUN Creatinine Glucose POC Glucose 234 H 123 H 231 H Hemoglobin A1c Magnesium Ferritin AST ALT Alkaline Phosphatase Lactate Dehydrogenase C-Reactive Protein Total Protein Albumin Arterial Blood Glucose Coronavirus (PCR) 05/16/21 05/16/21 05/17/21 18:23 21:29 06:20 WBC MCV MCH MCHC RDW 18.8 H Lymph % (Auto) 10.2 L [place] % (Auto) Eos % (Auto) Lymph # (Auto) 0.8 L [place] # (Auto) Eos # (Auto) Baso # (Auto) Seg Neutrophils % 85.8 H Seg Neuts % (Manual) Lymphocytes % (Manual) Seg Neutrophils # Seg Neutrophils # Man Lymphocytes # (Manual) D-Dimer ABG pH POC ABG pCO2 POC ABG pO2 ABG pO2 ABG HCO3 ABG O2 Saturation ABG Base Excess ABG Oxyhemoglobin ABG Sodium ABG Chloride ABG Glucose Oxyhemoglobin Carboxyhemoglobin Sodium Potassium Chloride Carbon Dioxide BUN Creatinine Glucose POC Glucose 266 H 234 H Hemoglobin A1c Magnesium Ferritin AST ALT Alkaline Phosphatase Lactate Dehydrogenase C-Reactive Protein Total Protein Albumin Arterial Blood Glucose Coronavirus (PCR) 05/17/21 05/17/21 05/17/21 06:20 11:06 16:36 WBC MCV MCH MCHC RDW Lymph % (Auto) Park % (Auto) Eos % (Auto) Lymph # (Auto) Park # (Auto) Eos # (Auto) Baso # (Auto) Seg Neutrophils % Seg Neuts % (Manual) Lymphocytes % (Manual) Seg Neutrophils # Seg Neutrophils # Man Lymphocytes # (Manual) D-Dimer ABG pH POC ABG pCO2 POC ABG pO2 ABG pO2 ABG HCO3 ABG O2 Saturation ABG Base Excess ABG Oxyhemoglobin ABG Sodium ABG Chloride ABG Glucose Oxyhemoglobin Carboxyhemoglobin Sodium Potassium Chloride Carbon Dioxide 33 H BUN Creatinine 0.2 L Glucose 101 H POC Glucose 209 H 180 H Hemoglobin A1c Magnesium Ferritin AST ALT Alkaline Phosphatase Lactate Dehydrogenase C-Reactive Protein Total Protein Albumin Arterial Blood Glucose Coronavirus (PCR) 05/17/21 05/18/21 05/18/21 21:06 12:00 15:06 WBC MCV MCH MCHC RDW Lymph % (Auto) Park % (Auto) Eos % (Auto) Lymph # (Auto) Park # (Auto) Eos # (Auto) Baso # (Auto) Seg Neutrophils % Seg Neuts % (Manual) Lymphocytes % (Manual) Seg Neutrophils # Seg Neutrophils # Man Lymphocytes # (Manual) D-Dimer 874.02 H ABG pH POC ABG pCO2 POC ABG pO2 ABG pO2 ABG HCO3 ABG O2 Saturation ABG Base Excess ABG Oxyhemoglobin ABG Sodium ABG Chloride ABG Glucose Oxyhemoglobin Carboxyhemoglobin Sodium Potassium Chloride Carbon Dioxide BUN Creatinine Glucose POC Glucose 256 H 139 H Hemoglobin A1c Magnesium Ferritin AST ALT Alkaline Phosphatase Lactate Dehydrogenase C-Reactive Protein Total Protein Albumin Arterial Blood Glucose Coronavirus (PCR) 05/18/21 05/18/21 05/18/21 15:06 15:06 16:08 WBC MCV MCH MCHC RDW Lymph % (Auto) Park % (Auto) Eos % (Auto) Lymph # (Auto) Park # (Auto) Eos # (Auto) Baso # (Auto) Seg Neutrophils % Seg Neuts % (Manual) Lymphocytes % (Manual) Seg Neutrophils # Seg Neutrophils # Man Lymphocytes # (Manual) D-Dimer ABG pH POC ABG pCO2 POC ABG pO2 ABG pO2 ABG HCO3 ABG O2 Saturation ABG Base Excess ABG Oxyhemoglobin ABG Sodium ABG Chloride ABG Glucose Oxyhemoglobin Carboxyhemoglobin Sodium Potassium Chloride Carbon Dioxide BUN Creatinine Glucose POC Glucose 178 H Hemoglobin A1c Magnesium Ferritin 289.6 H AST ALT Alkaline Phosphatase Lactate Dehydrogenase 605 H C-Reactive Protein Total Protein Albumin Arterial Blood Glucose Coronavirus (PCR) 05/18/21 05/19/21 05/19/21 21:22 11:57 15:26 WBC MCV MCH MCHC RDW Lymph % (Auto) Park % (Auto) Eos % (Auto) Lymph # (Auto) Park # (Auto) Eos # (Auto) Baso # (Auto) Seg Neutrophils % Seg Neuts % (Manual) Lymphocytes % (Manual) Seg Neutrophils # Seg Neutrophils # Man Lymphocytes # (Manual) D-Dimer ABG pH POC ABG pCO2 POC ABG pO2 ABG pO2 ABG HCO3 ABG O2 Saturation ABG Base Excess ABG Oxyhemoglobin ABG Sodium ABG Chloride ABG Glucose Oxyhemoglobin Carboxyhemoglobin Sodium Potassium Chloride Carbon Dioxide BUN Creatinine Glucose POC Glucose 241 H 201 H 209 H Hemoglobin A1c Magnesium Ferritin AST ALT Alkaline Phosphatase Lactate Dehydrogenase C-Reactive Protein Total Protein Albumin Arterial Blood Glucose Coronavirus (PCR) 05/19/21 05/20/21 05/20/21 20:59 07:38 08:01 WBC MCV MCH MCHC RDW 19.7 H Lymph % (Auto) 8.3 L Park % (Auto) Eos % (Auto) Lymph # (Auto) 0.8 L [place] # (Auto) Eos # (Auto) Baso # (Auto) Seg Neutrophils % 88.6 H Seg Neuts % (Manual) Lymphocytes % (Manual) Seg Neutrophils # 8.4 H Seg Neutrophils # Man Lymphocytes # (Manual) D-Dimer ABG pH POC ABG pCO2 POC ABG pO2 ABG pO2 ABG HCO3 ABG O2 Saturation ABG Base Excess ABG Oxyhemoglobin ABG Sodium ABG Chloride ABG Glucose Oxyhemoglobin Carboxyhemoglobin Sodium Potassium Chloride Carbon Dioxide BUN Creatinine Glucose POC Glucose 226 H 130 H Hemoglobin A1c Magnesium Ferritin AST ALT Alkaline Phosphatase Lactate Dehydrogenase C-Reactive Protein Total Protein Albumin Arterial Blood Glucose Coronavirus (PCR) 05/20/21 05/20/21 05/20/21 08:01 11:00 16:43 WBC MCV MCH MCHC RDW Lymph % (Auto) Park % (Auto) Eos % (Auto) Lymph # (Auto) Park # (Auto) Eos # (Auto) Baso # (Auto) Seg Neutrophils % Seg Neuts % (Manual) Lymphocytes % (Manual) Seg Neutrophils # Seg Neutrophils # Man Lymphocytes # (Manual) D-Dimer ABG pH POC ABG pCO2 POC ABG pO2 ABG pO2 ABG HCO3 ABG O2 Saturation ABG Base Excess ABG Oxyhemoglobin ABG Sodium ABG Chloride ABG Glucose Oxyhemoglobin Carboxyhemoglobin Sodium Potassium Chloride Carbon Dioxide BUN 18 H Creatinine 0.2 L Glucose 132 H POC Glucose 237 H 240 H Hemoglobin A1c Magnesium Ferritin AST ALT Alkaline Phosphatase Lactate Dehydrogenase C-Reactive Protein Total Protein Albumin Arterial Blood Glucose Coronavirus (PCR) 05/20/21 05/21/21 05/21/21 21:21 07:35 11:32 WBC MCV MCH MCHC RDW Lymph % (Auto) Park % (Auto) Eos % (Auto) Lymph # (Auto) Park # (Auto) Eos # (Auto) Baso # (Auto) Seg Neutrophils % Seg Neuts % (Manual) Lymphocytes % (Manual) Seg Neutrophils # Seg Neutrophils # Man Lymphocytes # (Manual) D-Dimer ABG pH POC ABG pCO2 POC ABG pO2 ABG pO2 ABG HCO3 ABG O2 Saturation ABG Base Excess ABG Oxyhemoglobin ABG Sodium ABG Chloride ABG Glucose Oxyhemoglobin Carboxyhemoglobin Sodium Potassium Chloride Carbon Dioxide BUN Creatinine Glucose POC Glucose 241 H 162 H 171 H Hemoglobin A1c Magnesium Ferritin AST ALT Alkaline Phosphatase Lactate Dehydrogenase C-Reactive Protein Total Protein Albumin Arterial Blood Glucose Coronavirus (PCR) 05/21/21 05/21/21 05/22/21 16:22 20:43 05:14 WBC MCV MCH MCHC RDW Lymph % (Auto) Park % (Auto) Eos % (Auto) Lymph # (Auto) Park # (Auto) Eos # (Auto) Baso # (Auto) Seg Neutrophils % Seg Neuts % (Manual) Lymphocytes % (Manual) Seg Neutrophils # Seg Neutrophils # Man Lymphocytes # (Manual) D-Dimer ABG pH POC ABG pCO2 POC ABG pO2 ABG pO2 ABG HCO3 ABG O2 Saturation ABG Base Excess ABG Oxyhemoglobin ABG Sodium ABG Chloride ABG Glucose Oxyhemoglobin Carboxyhemoglobin Sodium Potassium Chloride Carbon Dioxide BUN Creatinine Glucose POC Glucose 244 H 299 H 140 H Hemoglobin A1c Magnesium Ferritin AST ALT Alkaline Phosphatase Lactate Dehydrogenase C-Reactive Protein Total Protein Albumin Arterial Blood Glucose Coronavirus (PCR) 05/22/21 05/22/21 05/22/21 08:45 11:54 16:15 WBC MCV MCH MCHC RDW Lymph % (Auto) Park % (Auto) Eos % (Auto) Lymph # (Auto) Park # (Auto) Eos # (Auto) Baso # (Auto) Seg Neutrophils % Seg Neuts % (Manual) Lymphocytes % (Manual) Seg Neutrophils # Seg Neutrophils # Man Lymphocytes # (Manual) D-Dimer ABG pH POC ABG pCO2 POC ABG pO2 ABG pO2 ABG HCO3 ABG O2 Saturation ABG Base Excess ABG Oxyhemoglobin ABG Sodium ABG Chloride ABG Glucose Oxyhemoglobin Carboxyhemoglobin Sodium Potassium Chloride Carbon Dioxide BUN Creatinine Glucose POC Glucose 133 H 265 H 221 H Hemoglobin A1c Magnesium Ferritin AST ALT Alkaline Phosphatase Lactate Dehydrogenase C-Reactive Protein Total Protein Albumin Arterial Blood Glucose Coronavirus (PCR) 05/22/21 05/23/21 05/23/21 21:43 08:20 09:50 WBC MCV MCH MCHC RDW Lymph % (Auto) Park % (Auto) Eos % (Auto) Lymph # (Auto) Park # (Auto) Eos # (Auto) Baso # (Auto) Seg Neutrophils % Seg Neuts % (Manual) Lymphocytes % (Manual) Seg Neutrophils # Seg Neutrophils # Man Lymphocytes # (Manual) D-Dimer 910.38 H ABG pH POC ABG pCO2 POC ABG pO2 ABG pO2 ABG HCO3 ABG O2 Saturation ABG Base Excess ABG Oxyhemoglobin ABG Sodium ABG Chloride ABG Glucose Oxyhemoglobin Carboxyhemoglobin Sodium Potassium Chloride Carbon Dioxide BUN Creatinine Glucose POC Glucose 262 H 140 H Hemoglobin A1c Magnesium Ferritin AST ALT Alkaline Phosphatase Lactate Dehydrogenase C-Reactive Protein Total Protein Albumin Arterial Blood Glucose Coronavirus (PCR) 05/23/21 05/23/21 05/23/21 09:50 09:50 10:52 WBC MCV MCH MCHC RDW Lymph % (Auto) Park % (Auto) Eos % (Auto) Lymph # (Auto) Park # (Auto) Eos # (Auto) Baso # (Auto) Seg Neutrophils % Seg Neuts % (Manual) Lymphocytes % (Manual) Seg Neutrophils # Seg Neutrophils # Man Lymphocytes # (Manual) D-Dimer ABG pH POC ABG pCO2 POC ABG pO2 ABG pO2 ABG HCO3 ABG O2 Saturation ABG Base Excess ABG Oxyhemoglobin ABG Sodium ABG Chloride ABG Glucose Oxyhemoglobin Carboxyhemoglobin Sodium Potassium Chloride Carbon Dioxide BUN Creatinine Glucose POC Glucose 241 H Hemoglobin A1c Magnesium Ferritin 244.9 H AST ALT Alkaline Phosphatase Lactate Dehydrogenase 584 H C-Reactive Protein Total Protein Albumin Arterial Blood Glucose Coronavirus (PCR) 05/23/21 05/23/21 05/24/21 17:24 21:52 07:44 WBC MCV MCH MCHC RDW Lymph % (Auto) Park % (Auto) Eos % (Auto) Lymph # (Auto) Park # (Auto) Eos # (Auto) Baso # (Auto) Seg Neutrophils % Seg Neuts % (Manual) Lymphocytes % (Manual) Seg Neutrophils # Seg Neutrophils # Man Lymphocytes # (Manual) D-Dimer ABG pH POC ABG pCO2 POC ABG pO2 ABG pO2 ABG HCO3 ABG O2 Saturation ABG Base Excess ABG Oxyhemoglobin ABG Sodium ABG Chloride ABG Glucose Oxyhemoglobin Carboxyhemoglobin Sodium Potassium Chloride Carbon Dioxide BUN Creatinine Glucose POC Glucose 197 H 289 H 161 H Hemoglobin A1c Magnesium Ferritin AST ALT Alkaline Phosphatase Lactate Dehydrogenase C-Reactive Protein Total Protein Albumin Arterial Blood Glucose Coronavirus (PCR) 05/24/21 05/24/21 05/24/21 11:17 17:51 21:26 WBC MCV MCH MCHC RDW Lymph % (Auto) Park % (Auto) Eos % (Auto) Lymph # (Auto) Park # (Auto) Eos # (Auto) Baso # (Auto) Seg Neutrophils % Seg Neuts % (Manual) Lymphocytes % (Manual) Seg Neutrophils # Seg Neutrophils # Man Lymphocytes # (Manual) D-Dimer ABG pH POC ABG pCO2 POC ABG pO2 ABG pO2 ABG HCO3 ABG O2 Saturation ABG Base Excess ABG Oxyhemoglobin ABG Sodium ABG Chloride ABG Glucose Oxyhemoglobin Carboxyhemoglobin Sodium Potassium Chloride Carbon Dioxide BUN Creatinine Glucose POC Glucose 308 H 175 H 198 H Hemoglobin A1c Magnesium Ferritin AST ALT Alkaline Phosphatase Lactate Dehydrogenase C-Reactive Protein Total Protein Albumin Arterial Blood Glucose Coronavirus (PCR) 05/25/21 05/25/21 05/25/21 08:14 11:13 17:13 WBC MCV MCH MCHC RDW Lymph % (Auto) Park % (Auto) Eos % (Auto) Lymph # (Auto) Park # (Auto) Eos # (Auto) Baso # (Auto) Seg Neutrophils % Seg Neuts % (Manual) Lymphocytes % (Manual) Seg Neutrophils # Seg Neutrophils # Man Lymphocytes # (Manual) D-Dimer ABG pH POC ABG pCO2 POC ABG pO2 ABG pO2 ABG HCO3 ABG O2 Saturation ABG Base Excess ABG Oxyhemoglobin ABG Sodium ABG Chloride ABG Glucose Oxyhemoglobin Carboxyhemoglobin Sodium Potassium Chloride Carbon Dioxide BUN Creatinine Glucose POC Glucose 203 H 339 H 235 H Hemoglobin A1c Magnesium Ferritin AST ALT Alkaline Phosphatase Lactate Dehydrogenase C-Reactive Protein Total Protein Albumin Arterial Blood Glucose Coronavirus (PCR) 05/25/21 05/26/21 05/26/21 21:03 07:33 11:19 WBC MCV MCH MCHC RDW Lymph % (Auto) Park % (Auto) Eos % (Auto) Lymph # (Auto) Park # (Auto) Eos # (Auto) Baso # (Auto) Seg Neutrophils % Seg Neuts % (Manual) Lymphocytes % (Manual) Seg Neutrophils # Seg Neutrophils # Man Lymphocytes # (Manual) D-Dimer ABG pH POC ABG pCO2 POC ABG pO2 ABG pO2 ABG HCO3 ABG O2 Saturation ABG Base Excess ABG Oxyhemoglobin ABG Sodium ABG Chloride ABG Glucose Oxyhemoglobin Carboxyhemoglobin Sodium Potassium Chloride Carbon Dioxide BUN Creatinine Glucose POC Glucose 263 H 156 H 288 H Hemoglobin A1c Magnesium Ferritin AST ALT Alkaline Phosphatase Lactate Dehydrogenase C-Reactive Protein Total Protein Albumin Arterial Blood Glucose Coronavirus (PCR) 05/26/21 05/26/21 05/27/21 16:26 20:55 07:38 WBC MCV MCH MCHC RDW Lymph % (Auto) Park % (Auto) Eos % (Auto) Lymph # (Auto) Park # (Auto) Eos # (Auto) Baso # (Auto) Seg Neutrophils % Seg Neuts % (Manual) Lymphocytes % (Manual) Seg Neutrophils # Seg Neutrophils # Man Lymphocytes # (Manual) D-Dimer ABG pH POC ABG pCO2 POC ABG pO2 ABG pO2 ABG HCO3 ABG O2 Saturation ABG Base Excess ABG Oxyhemoglobin ABG Sodium ABG Chloride ABG Glucose Oxyhemoglobin Carboxyhemoglobin Sodium Potassium Chloride Carbon Dioxide BUN Creatinine Glucose POC Glucose 286 H 293 H 115 H Hemoglobin A1c Magnesium Ferritin AST ALT Alkaline Phosphatase Lactate Dehydrogenase C-Reactive Protein Total Protein Albumin Arterial Blood Glucose Coronavirus (PCR) 05/27/21 05/27/21 05/27/21 11:46 15:58 21:02 WBC MCV MCH MCHC RDW Lymph % (Auto) Park % (Auto) Eos % (Auto) Lymph # (Auto) Park # (Auto) Eos # (Auto) Baso # (Auto) Seg Neutrophils % Seg Neuts % (Manual) Lymphocytes % (Manual) Seg Neutrophils # Seg Neutrophils # Man Lymphocytes # (Manual) D-Dimer ABG pH POC ABG pCO2 POC ABG pO2 ABG pO2 ABG HCO3 ABG O2 Saturation ABG Base Excess ABG Oxyhemoglobin ABG Sodium ABG Chloride ABG Glucose Oxyhemoglobin Carboxyhemoglobin Sodium Potassium Chloride Carbon Dioxide BUN Creatinine Glucose POC Glucose 260 H 318 H 246 H Hemoglobin A1c Magnesium Ferritin AST ALT Alkaline Phosphatase Lactate Dehydrogenase C-Reactive Protein Total Protein Albumin Arterial Blood Glucose Coronavirus (PCR) 05/28/21 05/28/21 05/28/21 07:34 11:31 16:36 WBC MCV MCH MCHC RDW Lymph % (Auto) Park % (Auto) Eos % (Auto) Lymph # (Auto) Park # (Auto) Eos # (Auto) Baso # (Auto) Seg Neutrophils % Seg Neuts % (Manual) Lymphocytes % (Manual) Seg Neutrophils # Seg Neutrophils # Man Lymphocytes # (Manual) D-Dimer ABG pH POC ABG pCO2 POC ABG pO2 ABG pO2 ABG HCO3 ABG O2 Saturation ABG Base Excess ABG Oxyhemoglobin ABG Sodium ABG Chloride ABG Glucose Oxyhemoglobin Carboxyhemoglobin Sodium Potassium Chloride Carbon Dioxide BUN Creatinine Glucose POC Glucose 185 H 297 H 183 H Hemoglobin A1c Magnesium Ferritin AST ALT Alkaline Phosphatase Lactate Dehydrogenase C-Reactive Protein Total Protein Albumin Arterial Blood Glucose Coronavirus (PCR) 05/28/21 05/29/21 05/29/21 21:19 07:34 11:19 WBC MCV MCH MCHC RDW Lymph % (Auto) Park % (Auto) Eos % (Auto) Lymph # (Auto) Park # (Auto) Eos # (Auto) Baso # (Auto) Seg Neutrophils % Seg Neuts % (Manual) Lymphocytes % (Manual) Seg Neutrophils # Seg Neutrophils # Man Lymphocytes # (Manual) D-Dimer ABG pH POC ABG pCO2 POC ABG pO2 ABG pO2 ABG HCO3 ABG O2 Saturation ABG Base Excess ABG Oxyhemoglobin ABG Sodium ABG Chloride ABG Glucose Oxyhemoglobin Carboxyhemoglobin Sodium Potassium Chloride Carbon Dioxide BUN Creatinine Glucose POC Glucose 274 H 139 H 293 H Hemoglobin A1c Magnesium Ferritin AST ALT Alkaline Phosphatase Lactate Dehydrogenase C-Reactive Protein Total Protein Albumin Arterial Blood Glucose Coronavirus (PCR) 05/29/21 05/29/21 05/30/21 16:36 22:44 05:55 WBC MCV MCH MCHC RDW 21.3 H Lymph % (Auto) 8.0 L Park % (Auto) Eos % (Auto) Lymph # (Auto) 0.6 L Park # (Auto) Eos # (Auto) Baso # (Auto) Seg Neutrophils % 88.6 H Seg Neuts % (Manual) Lymphocytes % (Manual) Seg Neutrophils # Seg Neutrophils # Man Lymphocytes # (Manual) D-Dimer ABG pH POC ABG pCO2 POC ABG pO2 ABG pO2 ABG HCO3 ABG O2 Saturation ABG Base Excess ABG Oxyhemoglobin ABG Sodium ABG Chloride ABG Glucose Oxyhemoglobin Carboxyhemoglobin Sodium Potassium Chloride Carbon Dioxide BUN Creatinine Glucose POC Glucose 299 H 160 H Hemoglobin A1c Magnesium Ferritin AST ALT Alkaline Phosphatase Lactate Dehydrogenase C-Reactive Protein Total Protein Albumin Arterial Blood Glucose Coronavirus (PCR) 05/30/21 05/30/21 05/30/21 05:55 08:04 11:13 WBC MCV MCH MCHC RDW Lymph % (Auto) Park % (Auto) Eos % (Auto) Lymph # (Auto) Park # (Auto) Eos # (Auto) Baso # (Auto) Seg Neutrophils % Seg Neuts % (Manual) Lymphocytes % (Manual) Seg Neutrophils # Seg Neutrophils # Man Lymphocytes # (Manual) D-Dimer ABG pH POC ABG pCO2 POC ABG pO2 ABG pO2 ABG HCO3 ABG O2 Saturation ABG Base Excess ABG Oxyhemoglobin ABG Sodium ABG Chloride ABG Glucose Oxyhemoglobin Carboxyhemoglobin Sodium Potassium Chloride Carbon Dioxide BUN 19 H Creatinine 0.2 L Glucose 209 H POC Glucose 157 H 275 H Hemoglobin A1c Magnesium Ferritin AST ALT Alkaline Phosphatase Lactate Dehydrogenase C-Reactive Protein Total Protein Albumin Arterial Blood Glucose Coronavirus (PCR) 0905/30/21 05/31/21 17:08 22:12 07:36 WBC MCV MCH MCHC RDW Lymph % (Auto) Park % (Auto) Eos % (Auto) Lymph # (Auto) Park # (Auto) Eos # (Auto) Baso # (Auto) Seg Neutrophils % Seg Neuts % (Manual) Lymphocytes % (Manual) Seg Neutrophils # Seg Neutrophils # Man Lymphocytes # (Manual) D-Dimer ABG pH POC ABG pCO2 POC ABG pO2 ABG pO2 ABG HCO3 ABG O2 Saturation ABG Base Excess ABG Oxyhemoglobin ABG Sodium ABG Chloride ABG Glucose Oxyhemoglobin Carboxyhemoglobin Sodium Potassium Chloride Carbon Dioxide BUN Creatinine Glucose POC Glucose 154 H 275 H 138 H Hemoglobin A1c Magnesium Ferritin AST ALT Alkaline Phosphatase Lactate Dehydrogenase C-Reactive Protein Total Protein Albumin Arterial Blood Glucose Coronavirus (PCR) 05/31/21 05/31/21 05/31/21 11:17 16:55 21:25 WBC MCV MCH MCHC RDW Lymph % (Auto) Park % (Auto) Eos % (Auto) Lymph # (Auto) Park # (Auto) Eos # (Auto) Baso # (Auto) Seg Neutrophils % Seg Neuts % (Manual) Lymphocytes % (Manual) Seg Neutrophils # Seg Neutrophils # Man Lymphocytes # (Manual) D-Dimer ABG pH POC ABG pCO2 POC ABG pO2 ABG pO2 ABG HCO3 ABG O2 Saturation ABG Base Excess ABG Oxyhemoglobin ABG Sodium ABG Chloride ABG Glucose Oxyhemoglobin Carboxyhemoglobin Sodium Potassium Chloride Carbon Dioxide BUN Creatinine Glucose POC Glucose 258 H 215 H 318 H Hemoglobin A1c Magnesium Ferritin AST ALT Alkaline Phosphatase Lactate Dehydrogenase C-Reactive Protein Total Protein Albumin Arterial Blood Glucose Coronavirus (PCR) 06/01/21 06/01/21 06/01/21 07:23 11:38 16:52 WBC MCV MCH MCHC RDW Lymph % (Auto) Park % (Auto) Eos % (Auto) Lymph # (Auto) Park # (Auto) Eos # (Auto) Baso # (Auto) Seg Neutrophils % Seg Neuts % (Manual) Lymphocytes % (Manual) Seg Neutrophils # Seg Neutrophils # Man Lymphocytes # (Manual) D-Dimer ABG pH POC ABG pCO2 POC ABG pO2 ABG pO2 ABG HCO3 ABG O2 Saturation ABG Base Excess ABG Oxyhemoglobin ABG Sodium ABG Chloride ABG Glucose Oxyhemoglobin Carboxyhemoglobin Sodium Potassium Chloride Carbon Dioxide BUN Creatinine Glucose POC Glucose 157 H 259 H 150 H Hemoglobin A1c Magnesium Ferritin AST ALT Alkaline Phosphatase Lactate Dehydrogenase C-Reactive Protein Total Protein Albumin Arterial Blood Glucose Coronavirus (PCR) 06/01/21 06/02/21 06/02/21 23:16 05:34 05:34 WBC MCV MCH MCHC RDW 21.3 H Lymph % (Auto) 9.6 L Park % (Auto) Eos % (Auto) Lymph # (Auto) 0.6 L Park # (Auto) Eos # (Auto) Baso # (Auto) Seg Neutrophils % 86.2 H Seg Neuts % (Manual) Lymphocytes % (Manual) Seg Neutrophils # Seg Neutrophils # Man Lymphocytes # (Manual) D-Dimer ABG pH POC ABG pCO2 POC ABG pO2 ABG pO2 ABG HCO3 ABG O2 Saturation ABG Base Excess ABG Oxyhemoglobin ABG Sodium ABG Chloride ABG Glucose Oxyhemoglobin Carboxyhemoglobin Sodium 136 L Potassium Chloride Carbon Dioxide BUN Creatinine 0.2 L Glucose 186 H POC Glucose 247 H Hemoglobin A1c Magnesium Ferritin AST ALT 69 H Alkaline Phosphatase Lactate Dehydrogenase C-Reactive Protein Total Protein 6.1 L Albumin 3.2 L Arterial Blood Glucose Coronavirus (PCR) 06/02/21 06/02/21 06/02/21 11:25 18:23 21:32 WBC MCV MCH MCHC RDW Lymph % (Auto) Park % (Auto) Eos % (Auto) Lymph # (Auto) Park # (Auto) Eos # (Auto) Baso # (Auto) Seg Neutrophils % Seg Neuts % (Manual) Lymphocytes % (Manual) Seg Neutrophils # Seg Neutrophils # Man Lymphocytes # (Manual) D-Dimer ABG pH POC ABG pCO2 POC ABG pO2 ABG pO2 ABG HCO3 ABG O2 Saturation ABG Base Excess ABG Oxyhemoglobin ABG Sodium ABG Chloride ABG Glucose Oxyhemoglobin Carboxyhemoglobin Sodium Potassium Chloride Carbon Dioxide BUN Creatinine Glucose POC Glucose 157 H 299 H 246 H Hemoglobin A1c Magnesium Ferritin AST ALT Alkaline Phosphatase Lactate Dehydrogenase C-Reactive Protein Total Protein Albumin Arterial Blood Glucose Coronavirus (PCR) 06/03/21 06/03/21 06/03/21 08:12 12:21 17:31 WBC MCV MCH MCHC RDW Lymph % (Auto) Park % (Auto) Eos % (Auto) Lymph # (Auto) Park # (Auto) Eos # (Auto) Baso # (Auto) Seg Neutrophils % Seg Neuts % (Manual) Lymphocytes % (Manual) Seg Neutrophils # Seg Neutrophils # Man Lymphocytes # (Manual) D-Dimer ABG pH POC ABG pCO2 POC ABG pO2 ABG pO2 ABG HCO3 ABG O2 Saturation ABG Base Excess ABG Oxyhemoglobin ABG Sodium ABG Chloride ABG Glucose Oxyhemoglobin Carboxyhemoglobin Sodium Potassium Chloride Carbon Dioxide BUN Creatinine Glucose POC Glucose 153 H 302 H 252 H Hemoglobin A1c Magnesium Ferritin AST ALT Alkaline Phosphatase Lactate Dehydrogenase C-Reactive Protein Total Protein Albumin Arterial Blood Glucose Coronavirus (PCR) 06/03/21 06/04/21 06/04/21 22:08 11:12 16:01 WBC MCV MCH MCHC RDW Lymph % (Auto) Park % (Auto) Eos % (Auto) Lymph # (Auto) Park # (Auto) Eos # (Auto) Baso # (Auto) Seg Neutrophils % Seg Neuts % (Manual) Lymphocytes % (Manual) Seg Neutrophils # Seg Neutrophils # Man Lymphocytes # (Manual) D-Dimer ABG pH POC ABG pCO2 POC ABG pO2 ABG pO2 ABG HCO3 ABG O2 Saturation ABG Base Excess ABG Oxyhemoglobin ABG Sodium ABG Chloride ABG Glucose Oxyhemoglobin Carboxyhemoglobin Sodium Potassium Chloride Carbon Dioxide BUN Creatinine Glucose POC Glucose 224 H 259 H 238 H Hemoglobin A1c Magnesium Ferritin AST ALT Alkaline Phosphatase Lactate Dehydrogenase C-Reactive Protein Total Protein Albumin Arterial Blood Glucose Coronavirus (PCR) 06/04/21 06/05/21 06/05/21 21:26 05:26 05:26 WBC MCV MCH MCHC RDW Lymph % (Auto) Park % (Auto) Eos % (Auto) Lymph # (Auto) Park # (Auto) Eos # (Auto) Baso # (Auto) Seg Neutrophils % Seg Neuts % (Manual) Lymphocytes % (Manual) Seg Neutrophils # Seg Neutrophils # Man Lymphocytes # (Manual) D-Dimer 488.49 H ABG pH POC ABG pCO2 POC ABG pO2 ABG pO2 ABG HCO3 ABG O2 Saturation ABG Base Excess ABG Oxyhemoglobin ABG Sodium ABG Chloride ABG Glucose Oxyhemoglobin Carboxyhemoglobin Sodium Potassium Chloride Carbon Dioxide BUN Creatinine 0.2 L Glucose 198 H POC Glucose 257 H Hemoglobin A1c Magnesium Ferritin AST ALT Alkaline Phosphatase Lactate Dehydrogenase 475 H C-Reactive Protein Total Protein Albumin Arterial Blood Glucose Coronavirus (PCR) 06/05/21 06/05/21 06/05/21 07:20 08:30 11:00 WBC MCV MCH MCHC RDW Lymph % (Auto) Park % (Auto) Eos % (Auto) Lymph # (Auto) Park # (Auto) Eos # (Auto) Baso # (Auto) Seg Neutrophils % Seg Neuts % (Manual) Lymphocytes % (Manual) Seg Neutrophils # Seg Neutrophils # Man Lymphocytes # (Manual) D-Dimer ABG pH POC ABG pCO2 POC ABG pO2 ABG pO2 ABG HCO3 ABG O2 Saturation ABG Base Excess ABG Oxyhemoglobin ABG Sodium ABG Chloride ABG Glucose Oxyhemoglobin Carboxyhemoglobin Sodium Potassium Chloride Carbon Dioxide BUN Creatinine Glucose POC Glucose 146 H 246 H Hemoglobin A1c Magnesium Ferritin AST ALT Alkaline Phosphatase Lactate Dehydrogenase C-Reactive Protein Total Protein Albumin Arterial Blood Glucose Coronavirus (PCR) Positive A 06/05/21 06/05/21 06/06/21 16:50 22:30 07:57 WBC MCV MCH MCHC RDW Lymph % (Auto) Park % (Auto) Eos % (Auto) Lymph # (Auto) Park # (Auto) Eos # (Auto) Baso # (Auto) Seg Neutrophils % Seg Neuts % (Manual) Lymphocytes % (Manual) Seg Neutrophils # Seg Neutrophils # Man Lymphocytes # (Manual) D-Dimer ABG pH POC ABG pCO2 POC ABG pO2 ABG pO2 ABG HCO3 ABG O2 Saturation ABG Base Excess ABG Oxyhemoglobin ABG Sodium ABG Chloride ABG Glucose Oxyhemoglobin Carboxyhemoglobin Sodium Potassium Chloride Carbon Dioxide BUN Creatinine Glucose POC Glucose 240 H 174 H 120 H Hemoglobin A1c Magnesium Ferritin AST ALT Alkaline Phosphatase Lactate Dehydrogenase C-Reactive Protein Total Protein Albumin Arterial Blood Glucose Coronavirus (PCR) 06/06/21 06/06/21 06/06/21 11:14 16:50 21:11 WBC MCV MCH MCHC RDW Lymph % (Auto) Park % (Auto) Eos % (Auto) Lymph # (Auto) Park # (Auto) Eos # (Auto) Baso # (Auto) Seg Neutrophils % Seg Neuts % (Manual) Lymphocytes % (Manual) Seg Neutrophils # Seg Neutrophils # Man Lymphocytes # (Manual) D-Dimer ABG pH POC ABG pCO2 POC ABG pO2 ABG pO2 ABG HCO3 ABG O2 Saturation ABG Base Excess ABG Oxyhemoglobin ABG Sodium ABG Chloride ABG Glucose Oxyhemoglobin Carboxyhemoglobin Sodium Potassium Chloride Carbon Dioxide BUN Creatinine Glucose POC Glucose 267 H 218 H 124 H Hemoglobin A1c Magnesium Ferritin AST ALT Alkaline Phosphatase Lactate Dehydrogenase C-Reactive Protein Total Protein Albumin Arterial Blood Glucose Coronavirus (PCR) 06/07/21 06/07/21 06/08/21 11:58 15:59 07:59 WBC MCV MCH MCHC RDW Lymph % (Auto) Park % (Auto) Eos % (Auto) Lymph # (Auto) Park # (Auto) Eos # (Auto) Baso # (Auto) Seg Neutrophils % Seg Neuts % (Manual) Lymphocytes % (Manual) Seg Neutrophils # Seg Neutrophils # Man Lymphocytes # (Manual) D-Dimer ABG pH POC ABG pCO2 POC ABG pO2 ABG pO2 ABG HCO3 ABG O2 Saturation ABG Base Excess ABG Oxyhemoglobin ABG Sodium ABG Chloride ABG Glucose Oxyhemoglobin Carboxyhemoglobin Sodium Potassium Chloride Carbon Dioxide BUN Creatinine Glucose POC Glucose 219 H 208 H 192 H Hemoglobin A1c Magnesium Ferritin AST ALT Alkaline Phosphatase Lactate Dehydrogenase C-Reactive Protein Total Protein Albumin Arterial Blood Glucose Coronavirus (PCR) 06/08/21 06/08/21 06/09/21 11:26 23:28 07:33 WBC MCV MCH MCHC RDW Lymph % (Auto) Park % (Auto) Eos % (Auto) Lymph # (Auto) Park # (Auto) Eos # (Auto) Baso # (Auto) Seg Neutrophils % Seg Neuts % (Manual) Lymphocytes % (Manual) Seg Neutrophils # Seg Neutrophils # Man Lymphocytes # (Manual) D-Dimer ABG pH POC ABG pCO2 POC ABG pO2 ABG pO2 ABG HCO3 ABG O2 Saturation ABG Base Excess ABG Oxyhemoglobin ABG Sodium ABG Chloride ABG Glucose Oxyhemoglobin Carboxyhemoglobin Sodium Potassium Chloride Carbon Dioxide BUN Creatinine Glucose POC Glucose 307 H 138 H 145 H Hemoglobin A1c Magnesium Ferritin AST ALT Alkaline Phosphatase Lactate Dehydrogenase C-Reactive Protein Total Protein Albumin Arterial Blood Glucose Coronavirus (PCR) 06/09/21 06/09/21 06/09/21 11:01 15:47 21:43 WBC MCV MCH MCHC RDW Lymph % (Auto) Park % (Auto) Eos % (Auto) Lymph # (Auto) Park # (Auto) Eos # (Auto) Baso # (Auto) Seg Neutrophils % Seg Neuts % (Manual) Lymphocytes % (Manual) Seg Neutrophils # Seg Neutrophils # Man Lymphocytes # (Manual) D-Dimer ABG pH POC ABG pCO2 POC ABG pO2 ABG pO2 ABG HCO3 ABG O2 Saturation ABG Base Excess ABG Oxyhemoglobin ABG Sodium ABG Chloride ABG Glucose Oxyhemoglobin Carboxyhemoglobin Sodium Potassium Chloride Carbon Dioxide BUN Creatinine Glucose POC Glucose 266 H 305 H 223 H Hemoglobin A1c Magnesium Ferritin AST ALT Alkaline Phosphatase Lactate Dehydrogenase C-Reactive Protein Total Protein Albumin Arterial Blood Glucose Coronavirus (PCR) 06/10/21 06/10/21 06/10/21 08:27 12:10 17:45 WBC MCV MCH MCHC RDW Lymph % (Auto) Park % (Auto) Eos % (Auto) Lymph # (Auto) Park # (Auto) Eos # (Auto) Baso # (Auto) Seg Neutrophils % Seg Neuts % (Manual) Lymphocytes % (Manual) Seg Neutrophils # Seg Neutrophils # Man Lymphocytes # (Manual) D-Dimer ABG pH POC ABG pCO2 POC ABG pO2 ABG pO2 ABG HCO3 ABG O2 Saturation ABG Base Excess ABG Oxyhemoglobin ABG Sodium ABG Chloride ABG Glucose Oxyhemoglobin Carboxyhemoglobin Sodium Potassium Chloride Carbon Dioxide BUN Creatinine Glucose POC Glucose 174 H 306 H 210 H Hemoglobin A1c Magnesium Ferritin AST ALT Alkaline Phosphatase Lactate Dehydrogenase C-Reactive Protein Total Protein Albumin Arterial Blood Glucose Coronavirus (PCR) 06/10/21 06/11/21 06/11/21 21:45 09:38 09:38 WBC MCV MCH MCHC RDW 20.9 H Lymph % (Auto) Park % (Auto) Eos % (Auto) Lymph # (Auto) Park # (Auto) Eos # (Auto) Baso # (Auto) Seg Neutrophils % Seg Neuts % (Manual) Lymphocytes % (Manual) Seg Neutrophils # Seg Neutrophils # Man Lymphocytes # (Manual) D-Dimer ABG pH POC ABG pCO2 POC ABG pO2 ABG pO2 ABG HCO3 ABG O2 Saturation ABG Base Excess ABG Oxyhemoglobin ABG Sodium ABG Chloride ABG Glucose Oxyhemoglobin Carboxyhemoglobin Sodium 135 L Potassium Chloride 90.8 L Carbon Dioxide 36 H BUN 29 H Creatinine 0.2 L Glucose 258 H POC Glucose 262 H Hemoglobin A1c Magnesium Ferritin AST ALT Alkaline Phosphatase Lactate Dehydrogenase C-Reactive Protein Total Protein Albumin Arterial Blood Glucose Coronavirus (PCR) 06/11/21 06/11/21 06/11/21 11:20 15:49 22:57 WBC MCV MCH MCHC RDW Lymph % (Auto) Park % (Auto) Eos % (Auto) Lymph # (Auto) Park # (Auto) Eos # (Auto) Baso # (Auto) Seg Neutrophils % Seg Neuts % (Manual) Lymphocytes % (Manual) Seg Neutrophils # Seg Neutrophils # Man Lymphocytes # (Manual) D-Dimer ABG pH POC ABG pCO2 POC ABG pO2 ABG pO2 ABG HCO3 ABG O2 Saturation ABG Base Excess ABG Oxyhemoglobin ABG Sodium ABG Chloride ABG Glucose Oxyhemoglobin Carboxyhemoglobin Sodium Potassium Chloride Carbon Dioxide BUN Creatinine Glucose POC Glucose 269 H 206 H 211 H Hemoglobin A1c Magnesium Ferritin AST ALT Alkaline Phosphatase Lactate Dehydrogenase C-Reactive Protein Total Protein Albumin Arterial Blood Glucose Coronavirus (PCR) 06/12/21 06/12/21 06/12/21 08:07 11:24 18:08 WBC MCV MCH MCHC RDW Lymph % (Auto) Park % (Auto) Eos % (Auto) Lymph # (Auto) Park # (Auto) Eos # (Auto) Baso # (Auto) Seg Neutrophils % Seg Neuts % (Manual) Lymphocytes % (Manual) Seg Neutrophils # Seg Neutrophils # Man Lymphocytes # (Manual) D-Dimer ABG pH POC ABG pCO2 POC ABG pO2 ABG pO2 ABG HCO3 ABG O2 Saturation ABG Base Excess ABG Oxyhemoglobin ABG Sodium ABG Chloride ABG Glucose Oxyhemoglobin Carboxyhemoglobin Sodium Potassium Chloride Carbon Dioxide BUN Creatinine Glucose POC Glucose 149 H 270 H 166 H Hemoglobin A1c Magnesium Ferritin AST ALT Alkaline Phosphatase Lactate Dehydrogenase C-Reactive Protein Total Protein Albumin Arterial Blood Glucose Coronavirus (PCR) 06/12/21 06/13/21 06/13/21 20:22 07:50 11:18 WBC MCV MCH MCHC RDW Lymph % (Auto) Park % (Auto) Eos % (Auto) Lymph # (Auto) Park # (Auto) Eos # (Auto) Baso # (Auto) Seg Neutrophils % Seg Neuts % (Manual) Lymphocytes % (Manual) Seg Neutrophils # Seg Neutrophils # Man Lymphocytes # (Manual) D-Dimer ABG pH POC ABG pCO2 POC ABG pO2 ABG pO2 ABG HCO3 ABG O2 Saturation ABG Base Excess ABG Oxyhemoglobin ABG Sodium ABG Chloride ABG Glucose Oxyhemoglobin Carboxyhemoglobin Sodium Potassium Chloride Carbon Dioxide BUN Creatinine Glucose POC Glucose 155 H 163 H 293 H Hemoglobin A1c Magnesium Ferritin AST ALT Alkaline Phosphatase Lactate Dehydrogenase C-Reactive Protein Total Protein Albumin Arterial Blood Glucose Coronavirus (PCR) 06/13/21 06/13/21 06/14/21 16:41 21:00 07:41 WBC MCV MCH MCHC RDW Lymph % (Auto) Park % (Auto) Eos % (Auto) Lymph # (Auto) Park # (Auto) Eos # (Auto) Baso # (Auto) Seg Neutrophils % Seg Neuts % (Manual) Lymphocytes % (Manual) Seg Neutrophils # Seg Neutrophils # Man Lymphocytes # (Manual) D-Dimer ABG pH POC ABG pCO2 POC ABG pO2 ABG pO2 ABG HCO3 ABG O2 Saturation ABG Base Excess ABG Oxyhemoglobin ABG Sodium ABG Chloride ABG Glucose Oxyhemoglobin Carboxyhemoglobin Sodium Potassium Chloride Carbon Dioxide BUN Creatinine Glucose POC Glucose 232 H 183 H 52 L Hemoglobin A1c Magnesium Ferritin AST ALT Alkaline Phosphatase Lactate Dehydrogenase C-Reactive Protein Total Protein Albumin Arterial Blood Glucose Coronavirus (PCR) 06/14/21 06/14/21 06/14/21 11:44 17:44 21:44 WBC MCV MCH MCHC RDW Lymph % (Auto) Park % (Auto) Eos % (Auto) Lymph # (Auto) Park # (Auto) Eos # (Auto) Baso # (Auto) Seg Neutrophils % Seg Neuts % (Manual) Lymphocytes % (Manual) Seg Neutrophils # Seg Neutrophils # Man Lymphocytes # (Manual) D-Dimer ABG pH POC ABG pCO2 POC ABG pO2 ABG pO2 ABG HCO3 ABG O2 Saturation ABG Base Excess ABG Oxyhemoglobin ABG Sodium ABG Chloride ABG Glucose Oxyhemoglobin Carboxyhemoglobin Sodium Potassium Chloride Carbon Dioxide BUN Creatinine Glucose POC Glucose 205 H 293 H 288 H Hemoglobin A1c Magnesium Ferritin AST ALT Alkaline Phosphatase Lactate Dehydrogenase C-Reactive Protein Total Protein Albumin Arterial Blood Glucose Coronavirus (PCR) 06/15/21 06/15/21 06/15/21 08:00 08:00 11:40 WBC MCV MCH 33 H MCHC 35 H RDW 20.3 H Lymph % (Auto) Park % (Auto) Eos % (Auto) Lymph # (Auto) Park # (Auto) Eos # (Auto) Baso # (Auto) Seg Neutrophils % Seg Neuts % (Manual) Lymphocytes % (Manual) Seg Neutrophils # Seg Neutrophils # Man Lymphocytes # (Manual) D-Dimer ABG pH POC ABG pCO2 POC ABG pO2 ABG pO2 ABG HCO3 ABG O2 Saturation ABG Base Excess ABG Oxyhemoglobin ABG Sodium ABG Chloride ABG Glucose Oxyhemoglobin Carboxyhemoglobin Sodium Potassium 3.2 L Chloride 95.3 L Carbon Dioxide 32 H BUN 23 H Creatinine 0.2 L Glucose 103 H POC Glucose 204 H Hemoglobin A1c Magnesium Ferritin AST ALT Alkaline Phosphatase Lactate Dehydrogenase C-Reactive Protein Total Protein Albumin Arterial Blood Glucose Coronavirus (PCR) 06/15/21 06/15/21 06/16/21 16:17 22:00 11:43 WBC MCV MCH MCHC RDW Lymph % (Auto) Park % (Auto) Eos % (Auto) Lymph # (Auto) Park # (Auto) Eos # (Auto) Baso # (Auto) Seg Neutrophils % Seg Neuts % (Manual) Lymphocytes % (Manual) Seg Neutrophils # Seg Neutrophils # Man Lymphocytes # (Manual) D-Dimer ABG pH POC ABG pCO2 POC ABG pO2 ABG pO2 ABG HCO3 ABG O2 Saturation ABG Base Excess ABG Oxyhemoglobin ABG Sodium ABG Chloride ABG Glucose Oxyhemoglobin Carboxyhemoglobin Sodium Potassium Chloride Carbon Dioxide BUN Creatinine Glucose POC Glucose 295 H 233 H 201 H Hemoglobin A1c Magnesium Ferritin AST ALT Alkaline Phosphatase Lactate Dehydrogenase C-Reactive Protein Total Protein Albumin Arterial Blood Glucose Coronavirus (PCR) 06/16/21 06/16/21 06/17/21 17:21 21:27 07:12 WBC MCV MCH MCHC RDW Lymph % (Auto) Park % (Auto) Eos % (Auto) Lymph # (Auto) Park # (Auto) Eos # (Auto) Baso # (Auto) Seg Neutrophils % Seg Neuts % (Manual) Lymphocytes % (Manual) Seg Neutrophils # Seg Neutrophils # Man Lymphocytes # (Manual) D-Dimer ABG pH POC ABG pCO2 POC ABG pO2 ABG pO2 ABG HCO3 ABG O2 Saturation ABG Base Excess ABG Oxyhemoglobin ABG Sodium ABG Chloride ABG Glucose Oxyhemoglobin Carboxyhemoglobin Sodium Potassium Chloride Carbon Dioxide BUN Creatinine Glucose POC Glucose 299 H 290 H 67 L Hemoglobin A1c Magnesium Ferritin AST ALT Alkaline Phosphatase Lactate Dehydrogenase C-Reactive Protein Total Protein Albumin Arterial Blood Glucose Coronavirus (PCR) 06/17/21 06/17/21 06/17/21 11:53 17:02 22:25 WBC MCV MCH MCHC RDW Lymph % (Auto) Park % (Auto) Eos % (Auto) Lymph # (Auto) Park # (Auto) Eos # (Auto) Baso # (Auto) Seg Neutrophils % Seg Neuts % (Manual) Lymphocytes % (Manual) Seg Neutrophils # Seg Neutrophils # Man Lymphocytes # (Manual) D-Dimer ABG pH POC ABG pCO2 POC ABG pO2 ABG pO2 ABG HCO3 ABG O2 Saturation ABG Base Excess ABG Oxyhemoglobin ABG Sodium ABG Chloride ABG Glucose Oxyhemoglobin Carboxyhemoglobin Sodium Potassium Chloride Carbon Dioxide BUN Creatinine Glucose POC Glucose 199 H 362 H 235 H Hemoglobin A1c Magnesium Ferritin AST ALT Alkaline Phosphatase Lactate Dehydrogenase C-Reactive Protein Total Protein Albumin Arterial Blood Glucose Coronavirus (PCR) 06/18/21 06/18/21 06/18/21 08:00 11:48 16:40 WBC MCV MCH MCHC RDW Lymph % (Auto) Park % (Auto) Eos % (Auto) Lymph # (Auto) Park # (Auto) Eos # (Auto) Baso # (Auto) Seg Neutrophils % Seg Neuts % (Manual) Lymphocytes % (Manual) Seg Neutrophils # Seg Neutrophils # Man Lymphocytes # (Manual) D-Dimer ABG pH POC ABG pCO2 POC ABG pO2 ABG pO2 ABG HCO3 ABG O2 Saturation ABG Base Excess ABG Oxyhemoglobin ABG Sodium ABG Chloride ABG Glucose Oxyhemoglobin Carboxyhemoglobin Sodium Potassium Chloride Carbon Dioxide BUN Creatinine Glucose POC Glucose 62 L 211 H 305 H Hemoglobin A1c Magnesium Ferritin AST ALT Alkaline Phosphatase Lactate Dehydrogenase C-Reactive Protein Total Protein Albumin Arterial Blood Glucose Coronavirus (PCR) 06/18/21 06/19/21 06/19/21 21:26 07:27 11:32 WBC MCV MCH MCHC RDW Lymph % (Auto) Park % (Auto) Eos % (Auto) Lymph # (Auto) Park # (Auto) Eos # (Auto) Baso # (Auto) Seg Neutrophils % Seg Neuts % (Manual) Lymphocytes % (Manual) Seg Neutrophils # Seg Neutrophils # Man Lymphocytes # (Manual) D-Dimer ABG pH POC ABG pCO2 POC ABG pO2 ABG pO2 ABG HCO3 ABG O2 Saturation ABG Base Excess ABG Oxyhemoglobin ABG Sodium ABG Chloride ABG Glucose Oxyhemoglobin Carboxyhemoglobin Sodium Potassium Chloride Carbon Dioxide BUN Creatinine Glucose POC Glucose 149 H 60 L 208 H Hemoglobin A1c Magnesium Ferritin AST ALT Alkaline Phosphatase Lactate Dehydrogenase C-Reactive Protein Total Protein Albumin Arterial Blood Glucose Coronavirus (PCR) 06/19/21 06/19/21 06/20/21 16:06 22:28 07:48 WBC MCV MCH MCHC RDW Lymph % (Auto) Park % (Auto) Eos % (Auto) Lymph # (Auto) Park # (Auto) Eos # (Auto) Baso # (Auto) Seg Neutrophils % Seg Neuts % (Manual) Lymphocytes % (Manual) Seg Neutrophils # Seg Neutrophils # Man Lymphocytes # (Manual) D-Dimer ABG pH POC ABG pCO2 POC ABG pO2 ABG pO2 ABG HCO3 ABG O2 Saturation ABG Base Excess ABG Oxyhemoglobin ABG Sodium ABG Chloride ABG Glucose Oxyhemoglobin Carboxyhemoglobin Sodium Potassium Chloride Carbon Dioxide BUN Creatinine Glucose POC Glucose 266 H 166 H 58 L Hemoglobin A1c Magnesium Ferritin AST ALT Alkaline Phosphatase Lactate Dehydrogenase C-Reactive Protein Total Protein Albumin Arterial Blood Glucose Coronavirus (PCR) 06/20/21 06/20/21 06/20/21 09:09 11:04 16:01 WBC MCV MCH MCHC RDW Lymph % (Auto) Park % (Auto) Eos % (Auto) Lymph # (Auto) Park # (Auto) Eos # (Auto) Baso # (Auto) Seg Neutrophils % Seg Neuts % (Manual) Lymphocytes % (Manual) Seg Neutrophils # Seg Neutrophils # Man Lymphocytes # (Manual) D-Dimer ABG pH POC ABG pCO2 POC ABG pO2 ABG pO2 ABG HCO3 ABG O2 Saturation ABG Base Excess ABG Oxyhemoglobin ABG Sodium ABG Chloride ABG Glucose Oxyhemoglobin Carboxyhemoglobin Sodium Potassium Chloride Carbon Dioxide BUN Creatinine Glucose POC Glucose 146 H 225 H 330 H Hemoglobin A1c Magnesium Ferritin AST ALT Alkaline Phosphatase Lactate Dehydrogenase C-Reactive Protein Total Protein Albumin Arterial Blood Glucose Coronavirus (PCR) 06/20/21 06/21/21 06/21/21 20:46 06:45 06:45 WBC MCV MCH MCHC RDW 20.0 H Lymph % (Auto) Park % (Auto) Eos % (Auto) Lymph # (Auto) Park # (Auto) Eos # (Auto) Baso # (Auto) Seg Neutrophils % Seg Neuts % (Manual) Lymphocytes % (Manual) Seg Neutrophils # Seg Neutrophils # Man Lymphocytes # (Manual) D-Dimer ABG pH POC ABG pCO2 POC ABG pO2 ABG pO2 ABG HCO3 ABG O2 Saturation ABG Base Excess ABG Oxyhemoglobin ABG Sodium ABG Chloride ABG Glucose Oxyhemoglobin Carboxyhemoglobin Sodium Potassium 2.9 L* Chloride 95.0 L Carbon Dioxide 31 H BUN 23 H Creatinine 0.2 L Glucose 45 L POC Glucose 215 H Hemoglobin A1c Magnesium Ferritin AST ALT Alkaline Phosphatase Lactate Dehydrogenase C-Reactive Protein Total Protein Albumin Arterial Blood Glucose Coronavirus (PCR) 06/21/21 06/21/21 06/21/21 07:38 09:06 12:40 WBC MCV MCH MCHC RDW Lymph % (Auto) Park % (Auto) Eos % (Auto) Lymph # (Auto) Park # (Auto) Eos # (Auto) Baso # (Auto) Seg Neutrophils % Seg Neuts % (Manual) Lymphocytes % (Manual) Seg Neutrophils # Seg Neutrophils # Man Lymphocytes # (Manual) D-Dimer ABG pH POC ABG pCO2 POC ABG pO2 ABG pO2 ABG HCO3 ABG O2 Saturation ABG Base Excess ABG Oxyhemoglobin ABG Sodium ABG Chloride ABG Glucose Oxyhemoglobin Carboxyhemoglobin Sodium Potassium Chloride Carbon Dioxide BUN Creatinine Glucose POC Glucose 50 L 196 H 205 H Hemoglobin A1c Magnesium Ferritin AST ALT Alkaline Phosphatase Lactate Dehydrogenase C-Reactive Protein Total Protein Albumin Arterial Blood Glucose Coronavirus (PCR) 06/21/21 06/22/21 06/22/21 21:36 06:25 07:15 WBC MCV MCH MCHC RDW Lymph % (Auto) Park % (Auto) Eos % (Auto) Lymph # (Auto) Park # (Auto) Eos # (Auto) Baso # (Auto) Seg Neutrophils % Seg Neuts % (Manual) Lymphocytes % (Manual) Seg Neutrophils # Seg Neutrophils # Man Lymphocytes # (Manual) D-Dimer ABG pH POC ABG pCO2 POC ABG pO2 ABG pO2 ABG HCO3 ABG O2 Saturation ABG Base Excess ABG Oxyhemoglobin ABG Sodium ABG Chloride ABG Glucose Oxyhemoglobin Carboxyhemoglobin Sodium Potassium Chloride Carbon Dioxide BUN 20 H Creatinine 0.2 L Glucose POC Glucose 245 H 66 L Hemoglobin A1c Magnesium Ferritin AST ALT Alkaline Phosphatase Lactate Dehydrogenase C-Reactive Protein Total Protein Albumin Arterial Blood Glucose Coronavirus (PCR) 06/22/21 06/22/21 06/22/21 11:03 16:07 22:03 WBC MCV MCH MCHC RDW Lymph % (Auto) Park % (Auto) Eos % (Auto) Lymph # (Auto) Park # (Auto) Eos # (Auto) Baso # (Auto) Seg Neutrophils % Seg Neuts % (Manual) Lymphocytes % (Manual) Seg Neutrophils # Seg Neutrophils # Man Lymphocytes # (Manual) D-Dimer ABG pH POC ABG pCO2 POC ABG pO2 ABG pO2 ABG HCO3 ABG O2 Saturation ABG Base Excess ABG Oxyhemoglobin ABG Sodium ABG Chloride ABG Glucose Oxyhemoglobin Carboxyhemoglobin Sodium Potassium Chloride Carbon Dioxide BUN Creatinine Glucose POC Glucose 184 H 326 H 138 H Hemoglobin A1c Magnesium Ferritin AST ALT Alkaline Phosphatase Lactate Dehydrogenase C-Reactive Protein Total Protein Albumin Arterial Blood Glucose Coronavirus (PCR) 06/23/21 06/23/21 06/23/21 07:19 10:34 16:35 WBC MCV MCH MCHC RDW Lymph % (Auto) Park % (Auto) Eos % (Auto) Lymph # (Auto) Park # (Auto) Eos # (Auto) Baso # (Auto) Seg Neutrophils % Seg Neuts % (Manual) Lymphocytes % (Manual) Seg Neutrophils # Seg Neutrophils # Man Lymphocytes # (Manual) D-Dimer ABG pH POC ABG pCO2 POC ABG pO2 ABG pO2 ABG HCO3 ABG O2 Saturation ABG Base Excess ABG Oxyhemoglobin ABG Sodium ABG Chloride ABG Glucose Oxyhemoglobin Carboxyhemoglobin Sodium Potassium Chloride Carbon Dioxide BUN Creatinine Glucose POC Glucose 69 L 218 H 326 H Hemoglobin A1c Magnesium Ferritin AST ALT Alkaline Phosphatase Lactate Dehydrogenase C-Reactive Protein Total Protein Albumin Arterial Blood Glucose Coronavirus (PCR) 06/23/21 06/24/21 06/24/21 22:44 11:41 16:54 WBC MCV MCH MCHC RDW Lymph % (Auto) Park % (Auto) Eos % (Auto) Lymph # (Auto) Park # (Auto) Eos # (Auto) Baso # (Auto) Seg Neutrophils % Seg Neuts % (Manual) Lymphocytes % (Manual) Seg Neutrophils # Seg Neutrophils # Man Lymphocytes # (Manual) D-Dimer ABG pH POC ABG pCO2 POC ABG pO2 ABG pO2 ABG HCO3 ABG O2 Saturation ABG Base Excess ABG Oxyhemoglobin ABG Sodium ABG Chloride ABG Glucose Oxyhemoglobin Carboxyhemoglobin Sodium Potassium Chloride Carbon Dioxide BUN Creatinine Glucose POC Glucose 252 H 217 H 357 H Hemoglobin A1c Magnesium Ferritin AST ALT Alkaline Phosphatase Lactate Dehydrogenase C-Reactive Protein Total Protein Albumin Arterial Blood Glucose Coronavirus (PCR) 06/24/21 06/25/21 06/25/21 20:40 11:51 16:47 WBC MCV MCH MCHC RDW Lymph % (Auto) Park % (Auto) Eos % (Auto) Lymph # (Auto) Park # (Auto) Eos # (Auto) Baso # (Auto) Seg Neutrophils % Seg Neuts % (Manual) Lymphocytes % (Manual) Seg Neutrophils # Seg Neutrophils # Man Lymphocytes # (Manual) D-Dimer ABG pH POC ABG pCO2 POC ABG pO2 ABG pO2 ABG HCO3 ABG O2 Saturation ABG Base Excess ABG Oxyhemoglobin ABG Sodium ABG Chloride ABG Glucose Oxyhemoglobin Carboxyhemoglobin Sodium Potassium Chloride Carbon Dioxide BUN Creatinine Glucose POC Glucose 239 H 182 H 229 H Hemoglobin A1c Magnesium Ferritin AST ALT Alkaline Phosphatase Lactate Dehydrogenase C-Reactive Protein Total Protein Albumin Arterial Blood Glucose Coronavirus (PCR) 06/25/21 06/26/21 06/26/21 22:27 07:20 12:19 WBC MCV MCH MCHC RDW Lymph % (Auto) Park % (Auto) Eos % (Auto) Lymph # (Auto) Park # (Auto) Eos # (Auto) Baso # (Auto) Seg Neutrophils % Seg Neuts % (Manual) Lymphocytes % (Manual) Seg Neutrophils # Seg Neutrophils # Man Lymphocytes # (Manual) D-Dimer ABG pH POC ABG pCO2 POC ABG pO2 ABG pO2 ABG HCO3 ABG O2 Saturation ABG Base Excess ABG Oxyhemoglobin ABG Sodium ABG Chloride ABG Glucose Oxyhemoglobin Carboxyhemoglobin Sodium Potassium 3.2 L D Chloride Carbon Dioxide BUN 20 H Creatinine 0.3 L Glucose POC Glucose 209 H 273 H Hemoglobin A1c Magnesium Ferritin AST ALT 77 H Alkaline Phosphatase Lactate Dehydrogenase C-Reactive Protein Total Protein Albumin 3.3 L Arterial Blood Glucose Coronavirus (PCR) 06/26/21 06/26/21 06/27/21 16:52 20:55 07:14 WBC MCV MCH MCHC RDW Lymph % (Auto) Park % (Auto) Eos % (Auto) Lymph # (Auto) Park # (Auto) Eos # (Auto) Baso # (Auto) Seg Neutrophils % Seg Neuts % (Manual) Lymphocytes % (Manual) Seg Neutrophils # Seg Neutrophils # Man Lymphocytes # (Manual) D-Dimer ABG pH POC ABG pCO2 POC ABG pO2 ABG pO2 ABG HCO3 ABG O2 Saturation ABG Base Excess ABG Oxyhemoglobin ABG Sodium ABG Chloride ABG Glucose Oxyhemoglobin Carboxyhemoglobin Sodium Potassium Chloride Carbon Dioxide 31 H BUN 19 H Creatinine 0.2 L Glucose 112 H POC Glucose 326 H 220 H Hemoglobin A1c Magnesium Ferritin AST ALT Alkaline Phosphatase Lactate Dehydrogenase C-Reactive Protein Total Protein Albumin Arterial Blood Glucose Coronavirus (PCR) 06/27/21 06/27/21 06/27/21 07:29 10:54 15:49 WBC MCV MCH MCHC RDW Lymph % (Auto) Park % (Auto) Eos % (Auto) Lymph # (Auto) Park # (Auto) Eos # (Auto) Baso # (Auto) Seg Neutrophils % Seg Neuts % (Manual) Lymphocytes % (Manual) Seg Neutrophils # Seg Neutrophils # Man Lymphocytes # (Manual) D-Dimer ABG pH POC ABG pCO2 POC ABG pO2 ABG pO2 ABG HCO3 ABG O2 Saturation ABG Base Excess ABG Oxyhemoglobin ABG Sodium ABG Chloride ABG Glucose Oxyhemoglobin Carboxyhemoglobin Sodium Potassium Chloride Carbon Dioxide BUN Creatinine Glucose POC Glucose 115 H 228 H 240 H Hemoglobin A1c Magnesium Ferritin AST ALT Alkaline Phosphatase Lactate Dehydrogenase C-Reactive Protein Total Protein Albumin Arterial Blood Glucose Coronavirus (PCR) 06/28/21 06/28/21 06/28/21 05:43 05:43 07:13 WBC MCV MCH 33 H MCHC RDW 19.8 H Lymph % (Auto) Park % (Auto) Eos % (Auto) Lymph # (Auto) Park # (Auto) Eos # (Auto) Baso # (Auto) Seg Neutrophils % Seg Neuts % (Manual) Lymphocytes % (Manual) Seg Neutrophils # Seg Neutrophils # Man Lymphocytes # (Manual) D-Dimer ABG pH POC ABG pCO2 POC ABG pO2 ABG pO2 ABG HCO3 ABG O2 Saturation ABG Base Excess ABG Oxyhemoglobin ABG Sodium ABG Chloride ABG Glucose Oxyhemoglobin Carboxyhemoglobin Sodium Potassium 3.3 L Chloride Carbon Dioxide BUN 22 H Creatinine 0.2 L Glucose POC Glucose 69 L Hemoglobin A1c Magnesium Ferritin AST ALT 63 H Alkaline Phosphatase Lactate Dehydrogenase C-Reactive Protein Total Protein Albumin 3.3 L Arterial Blood Glucose Coronavirus (PCR) 06/28/21 06/28/21 06/28/21 12:18 15:37 21:01 WBC MCV MCH MCHC RDW Lymph % (Auto) Park % (Auto) Eos % (Auto) Lymph # (Auto) Park # (Auto) Eos # (Auto) Baso # (Auto) Seg Neutrophils % Seg Neuts % (Manual) Lymphocytes % (Manual) Seg Neutrophils # Seg Neutrophils # Man Lymphocytes # (Manual) D-Dimer ABG pH POC ABG pCO2 POC ABG pO2 ABG pO2 ABG HCO3 ABG O2 Saturation ABG Base Excess ABG Oxyhemoglobin ABG Sodium ABG Chloride ABG Glucose Oxyhemoglobin Carboxyhemoglobin Sodium Potassium Chloride Carbon Dioxide BUN Creatinine Glucose POC Glucose 154 H 201 H 191 H Hemoglobin A1c Magnesium Ferritin AST ALT Alkaline Phosphatase Lactate Dehydrogenase C-Reactive Protein Total Protein Albumin Arterial Blood Glucose Coronavirus (PCR) 06/29/21 06/29/21 06/29/21 11:55 15:47 21:06 WBC MCV MCH MCHC RDW Lymph % (Auto) Park % (Auto) Eos % (Auto) Lymph # (Auto) Park # (Auto) Eos # (Auto) Baso # (Auto) Seg Neutrophils % Seg Neuts % (Manual) Lymphocytes % (Manual) Seg Neutrophils # Seg Neutrophils # Man Lymphocytes # (Manual) D-Dimer ABG pH POC ABG pCO2 POC ABG pO2 ABG pO2 ABG HCO3 ABG O2 Saturation ABG Base Excess ABG Oxyhemoglobin ABG Sodium ABG Chloride ABG Glucose Oxyhemoglobin Carboxyhemoglobin Sodium Potassium Chloride Carbon Dioxide BUN Creatinine Glucose POC Glucose 238 H 249 H 155 H Hemoglobin A1c Magnesium Ferritin AST ALT Alkaline Phosphatase Lactate Dehydrogenase C-Reactive Protein Total Protein Albumin Arterial Blood Glucose Coronavirus (PCR) 06/30/21 06/30/21 06/30/21 04:00 07:50 11:50 WBC MCV MCH MCHC RDW Lymph % (Auto) Park % (Auto) Eos % (Auto) Lymph # (Auto) Park # (Auto) Eos # (Auto) Baso # (Auto) Seg Neutrophils % Seg Neuts % (Manual) Lymphocytes % (Manual) Seg Neutrophils # Seg Neutrophils # Man Lymphocytes # (Manual) D-Dimer ABG pH POC ABG pCO2 POC ABG pO2 ABG pO2 ABG HCO3 ABG O2 Saturation ABG Base Excess ABG Oxyhemoglobin ABG Sodium ABG Chloride ABG Glucose Oxyhemoglobin Carboxyhemoglobin Sodium Potassium 3.5 L Chloride Carbon Dioxide BUN 18 H Creatinine 0.3 L Glucose 111 H POC Glucose 117 H 250 H Hemoglobin A1c Magnesium Ferritin AST ALT Alkaline Phosphatase Lactate Dehydrogenase C-Reactive Protein Total Protein Albumin Arterial Blood Glucose Coronavirus (PCR) 06/30/21 06/30/21 07/01/21 16:05 21:02 07:26 WBC MCV MCH MCHC RDW Lymph % (Auto) Park % (Auto) Eos % (Auto) Lymph # (Auto) Park # (Auto) Eos # (Auto) Baso # (Auto) Seg Neutrophils % Seg Neuts % (Manual) Lymphocytes % (Manual) Seg Neutrophils # Seg Neutrophils # Man Lymphocytes # (Manual) D-Dimer ABG pH POC ABG pCO2 POC ABG pO2 ABG pO2 ABG HCO3 ABG O2 Saturation ABG Base Excess ABG Oxyhemoglobin ABG Sodium ABG Chloride ABG Glucose Oxyhemoglobin Carboxyhemoglobin Sodium Potassium Chloride Carbon Dioxide BUN Creatinine Glucose POC Glucose 250 H 217 H 111 H Hemoglobin A1c Magnesium Ferritin AST ALT Alkaline Phosphatase Lactate Dehydrogenase C-Reactive Protein Total Protein Albumin Arterial Blood Glucose Coronavirus (PCR) 07/01/21 07/01/21 07/01/21 11:06 15:48 21:31 WBC MCV MCH MCHC RDW Lymph % (Auto) Park % (Auto) Eos % (Auto) Lymph # (Auto) Park # (Auto) Eos # (Auto) Baso # (Auto) Seg Neutrophils % Seg Neuts % (Manual) Lymphocytes % (Manual) Seg Neutrophils # Seg Neutrophils # Man Lymphocytes # (Manual) D-Dimer ABG pH POC ABG pCO2 POC ABG pO2 ABG pO2 ABG HCO3 ABG O2 Saturation ABG Base Excess ABG Oxyhemoglobin ABG Sodium ABG Chloride ABG Glucose Oxyhemoglobin Carboxyhemoglobin Sodium Potassium Chloride Carbon Dioxide BUN Creatinine Glucose POC Glucose 229 H 239 H 199 H Hemoglobin A1c Magnesium Ferritin AST ALT Alkaline Phosphatase Lactate Dehydrogenase C-Reactive Protein Total Protein Albumin Arterial Blood Glucose Coronavirus (PCR) 07/02/21 07/02/21 07/02/21 11:50 16:44 21:49 WBC MCV MCH MCHC RDW Lymph % (Auto) Park % (Auto) Eos % (Auto) Lymph # (Auto) Park # (Auto) Eos # (Auto) Baso # (Auto) Seg Neutrophils % Seg Neuts % (Manual) Lymphocytes % (Manual) Seg Neutrophils # Seg Neutrophils # Man Lymphocytes # (Manual) D-Dimer ABG pH POC ABG pCO2 POC ABG pO2 ABG pO2 ABG HCO3 ABG O2 Saturation ABG Base Excess ABG Oxyhemoglobin ABG Sodium ABG Chloride ABG Glucose Oxyhemoglobin Carboxyhemoglobin Sodium Potassium Chloride Carbon Dioxide BUN Creatinine Glucose POC Glucose 230 H 203 H 197 H Hemoglobin A1c Magnesium Ferritin AST ALT Alkaline Phosphatase Lactate Dehydrogenase C-Reactive Protein Total Protein Albumin Arterial Blood Glucose Coronavirus (PCR) 07/03/21 07/03/21 07/03/21 05:46 05:46 11:59 WBC MCV MCH MCHC RDW 19.6 H Lymph % (Auto) Park % (Auto) Eos % (Auto) Lymph # (Auto) Park # (Auto) Eos # (Auto) Baso # (Auto) Seg Neutrophils % Seg Neuts % (Manual) Lymphocytes % (Manual) Seg Neutrophils # Seg Neutrophils # Man Lymphocytes # (Manual) D-Dimer ABG pH POC ABG pCO2 POC ABG pO2 ABG pO2 ABG HCO3 ABG O2 Saturation ABG Base Excess ABG Oxyhemoglobin ABG Sodium ABG Chloride ABG Glucose Oxyhemoglobin Carboxyhemoglobin Sodium Potassium 3.2 L Chloride Carbon Dioxide BUN Creatinine 0.3 L Glucose POC Glucose 145 H Hemoglobin A1c Magnesium Ferritin AST ALT Alkaline Phosphatase Lactate Dehydrogenase C-Reactive Protein Total Protein Albumin Arterial Blood Glucose Coronavirus (PCR) 07/03/21 07/03/21 07/04/21 16:40 22:00 06:35 WBC MCV MCH MCHC RDW Lymph % (Auto) Park % (Auto) Eos % (Auto) Lymph # (Auto) Park # (Auto) Eos # (Auto) Baso # (Auto) Seg Neutrophils % Seg Neuts % (Manual) Lymphocytes % (Manual) Seg Neutrophils # Seg Neutrophils # Man Lymphocytes # (Manual) D-Dimer ABG pH POC ABG pCO2 POC ABG pO2 ABG pO2 ABG HCO3 ABG O2 Saturation ABG Base Excess ABG Oxyhemoglobin ABG Sodium ABG Chloride ABG Glucose Oxyhemoglobin Carboxyhemoglobin Sodium Potassium Chloride Carbon Dioxide BUN Creatinine 0.3 L Glucose 118 H POC Glucose 176 H 127 H Hemoglobin A1c Magnesium Ferritin AST ALT Alkaline Phosphatase Lactate Dehydrogenase C-Reactive Protein Total Protein Albumin Arterial Blood Glucose Coronavirus (PCR) 07/04/21 07/04/21 07/05/21 12:30 16:38 08:37 WBC MCV MCH MCHC RDW Lymph % (Auto) Park % (Auto) Eos % (Auto) Lymph # (Auto) Park # (Auto) Eos # (Auto) Baso # (Auto) Seg Neutrophils % Seg Neuts % (Manual) Lymphocytes % (Manual) Seg Neutrophils # Seg Neutrophils # Man Lymphocytes # (Manual) D-Dimer ABG pH POC ABG pCO2 POC ABG pO2 ABG pO2 ABG HCO3 ABG O2 Saturation ABG Base Excess ABG Oxyhemoglobin ABG Sodium ABG Chloride ABG Glucose Oxyhemoglobin Carboxyhemoglobin Sodium Potassium Chloride Carbon Dioxide BUN Creatinine Glucose POC Glucose 162 H 205 H 115 H Hemoglobin A1c Magnesium Ferritin AST ALT Alkaline Phosphatase Lactate Dehydrogenase C-Reactive Protein Total Protein Albumin Arterial Blood Glucose Coronavirus (PCR) 07/05/21 07/05/21 07/05/21 10:57 16:42 21:14 WBC MCV MCH MCHC RDW Lymph % (Auto) Park % (Auto) Eos % (Auto) Lymph # (Auto) Park # (Auto) Eos # (Auto) Baso # (Auto) Seg Neutrophils % Seg Neuts % (Manual) Lymphocytes % (Manual) Seg Neutrophils # Seg Neutrophils # Man Lymphocytes # (Manual) D-Dimer ABG pH POC ABG pCO2 POC ABG pO2 ABG pO2 ABG HCO3 ABG O2 Saturation ABG Base Excess ABG Oxyhemoglobin ABG Sodium ABG Chloride ABG Glucose Oxyhemoglobin Carboxyhemoglobin Sodium Potassium Chloride Carbon Dioxide BUN Creatinine Glucose POC Glucose 151 H 184 H 130 H Hemoglobin A1c Magnesium Ferritin AST ALT Alkaline Phosphatase Lactate Dehydrogenase C-Reactive Protein Total Protein Albumin Arterial Blood Glucose Coronavirus (PCR) 07/06/21 07/06/21 07/06/21 07:31 11:49 16:46 WBC MCV MCH MCHC RDW Lymph % (Auto) Park % (Auto) Eos % (Auto) Lymph # (Auto) Park # (Auto) Eos # (Auto) Baso # (Auto) Seg Neutrophils % Seg Neuts % (Manual) Lymphocytes % (Manual) Seg Neutrophils # Seg Neutrophils # Man Lymphocytes # (Manual) D-Dimer ABG pH POC ABG pCO2 POC ABG pO2 ABG pO2 ABG HCO3 ABG O2 Saturation ABG Base Excess ABG Oxyhemoglobin ABG Sodium ABG Chloride ABG Glucose Oxyhemoglobin Carboxyhemoglobin Sodium Potassium Chloride Carbon Dioxide BUN Creatinine Glucose POC Glucose 106 H 173 H 205 H Hemoglobin A1c Magnesium Ferritin AST ALT Alkaline Phosphatase Lactate Dehydrogenase C-Reactive Protein Total Protein Albumin Arterial Blood Glucose Coronavirus (PCR) 10/23/21 10/24/21 10/24/21 21:38 06:00 06:00 WBC 16.1 H MCV MCH MCHC RDW 18.8 H Lymph % (Auto) Park % (Auto) Eos % (Auto) Lymph # (Auto) Park # (Auto) 1.1 H Eos # (Auto) Baso # (Auto) 0.2 H Seg Neutrophils % 74.9 H Seg Neuts % (Manual) Lymphocytes % (Manual) Seg Neutrophils # 12.1 H Seg Neutrophils # Man Lymphocytes # (Manual) D-Dimer ABG pH POC ABG pCO2 POC ABG pO2 ABG pO2 ABG HCO3 ABG O2 Saturation ABG Base Excess ABG Oxyhemoglobin ABG Sodium ABG Chloride ABG Glucose Oxyhemoglobin Carboxyhemoglobin Sodium Potassium 3.5 L D Chloride Carbon Dioxide BUN 6 L Creatinine < 0.2 L Glucose 106 H POC Glucose 120 H Hemoglobin A1c Magnesium Ferritin AST ALT Alkaline Phosphatase Lactate Dehydrogenase C-Reactive Protein Total Protein Albumin Arterial Blood Glucose Coronavirus (PCR) 07/07/21 07/07/21 07/07/21 07:10 11:53 15:53 WBC MCV MCH MCHC RDW Lymph % (Auto) Park % (Auto) Eos % (Auto) Lymph # (Auto) Park # (Auto) Eos # (Auto) Baso # (Auto) Seg Neutrophils % Seg Neuts % (Manual) Lymphocytes % (Manual) Seg Neutrophils # Seg Neutrophils # Man Lymphocytes # (Manual) D-Dimer ABG pH POC ABG pCO2 POC ABG pO2 ABG pO2 ABG HCO3 ABG O2 Saturation ABG Base Excess ABG Oxyhemoglobin ABG Sodium ABG Chloride ABG Glucose Oxyhemoglobin Carboxyhemoglobin Sodium Potassium Chloride Carbon Dioxide BUN Creatinine Glucose POC Glucose 132 H 169 H 242 H Hemoglobin A1c Magnesium Ferritin AST ALT Alkaline Phosphatase Lactate Dehydrogenase C-Reactive Protein Total Protein Albumin Arterial Blood Glucose Coronavirus (PCR) 07/07/21 07/08/21 07/08/21 21:41 08:09 12:20 WBC MCV MCH MCHC RDW Lymph % (Auto) Park % (Auto) Eos % (Auto) Lymph # (Auto) Park # (Auto) Eos # (Auto) Baso # (Auto) Seg Neutrophils % Seg Neuts % (Manual) Lymphocytes % (Manual) Seg Neutrophils # Seg Neutrophils # Man Lymphocytes # (Manual) D-Dimer ABG pH POC ABG pCO2 POC ABG pO2 ABG pO2 ABG HCO3 ABG O2 Saturation ABG Base Excess ABG Oxyhemoglobin ABG Sodium ABG Chloride ABG Glucose Oxyhemoglobin Carboxyhemoglobin Sodium Potassium Chloride Carbon Dioxide BUN Creatinine Glucose POC Glucose 128 H 132 H 179 H Hemoglobin A1c Magnesium Ferritin AST ALT Alkaline Phosphatase Lactate Dehydrogenase C-Reactive Protein Total Protein Albumin Arterial Blood Glucose Coronavirus (PCR) 07/08/21 07/08/21 07/08/21 16:37 21:45 22:44 WBC MCV MCH MCHC RDW Lymph % (Auto) Park % (Auto) Eos % (Auto) Lymph # (Auto) Park # (Auto) Eos # (Auto) Baso # (Auto) Seg Neutrophils % Seg Neuts % (Manual) Lymphocytes % (Manual) Seg Neutrophils # Seg Neutrophils # Man Lymphocytes # (Manual) D-Dimer ABG pH POC ABG pCO2 POC ABG pO2 ABG pO2 ABG HCO3 ABG O2 Saturation ABG Base Excess ABG Oxyhemoglobin ABG Sodium ABG Chloride ABG Glucose Oxyhemoglobin Carboxyhemoglobin Sodium Potassium Chloride Carbon Dioxide BUN Creatinine Glucose POC Glucose 192 H 51 L 137 H Hemoglobin A1c Magnesium Ferritin AST ALT Alkaline Phosphatase Lactate Dehydrogenase C-Reactive Protein Total Protein Albumin Arterial Blood Glucose Coronavirus (PCR) 07/09/21 07/09/21 07/09/21 04:45 04:45 04:45 WBC MCV MCH MCHC RDW 18.3 H Lymph % (Auto) Park % (Auto) Eos % (Auto) Lymph # (Auto) Park # (Auto) Eos # (Auto) Baso # (Auto) Seg Neutrophils % Seg Neuts % (Manual) 82.0 H Lymphocytes % (Manual) 13.0 L Seg Neutrophils # Seg Neutrophils # Man 7.8 H Lymphocytes # (Manual) D-Dimer 638.35 H ABG pH POC ABG pCO2 POC ABG pO2 ABG pO2 ABG HCO3 ABG O2 Saturation ABG Base Excess ABG Oxyhemoglobin ABG Sodium ABG Chloride ABG Glucose Oxyhemoglobin Carboxyhemoglobin Sodium Potassium Chloride 96.9 L Carbon Dioxide 35 H BUN Creatinine 0.2 L Glucose 135 H POC Glucose Hemoglobin A1c Magnesium Ferritin AST ALT Alkaline Phosphatase Lactate Dehydrogenase C-Reactive Protein 4.30 H Total Protein Albumin Arterial Blood Glucose Coronavirus (PCR) 07/09/21 07/09/21 07/09/21 05:19 07:36 11:16 WBC MCV MCH MCHC RDW Lymph % (Auto) Park % (Auto) Eos % (Auto) Lymph # (Auto) Park # (Auto) Eos # (Auto) Baso # (Auto) Seg Neutrophils % Seg Neuts % (Manual) Lymphocytes % (Manual) Seg Neutrophils # Seg Neutrophils # Man Lymphocytes # (Manual) D-Dimer ABG pH POC ABG pCO2 POC ABG pO2 ABG pO2 ABG HCO3 ABG O2 Saturation ABG Base Excess ABG Oxyhemoglobin ABG Sodium ABG Chloride ABG Glucose Oxyhemoglobin Carboxyhemoglobin Sodium Potassium Chloride Carbon Dioxide BUN Creatinine Glucose POC Glucose 135 H 148 H 212 H Hemoglobin A1c Magnesium Ferritin AST ALT Alkaline Phosphatase Lactate Dehydrogenase C-Reactive Protein Total Protein Albumin Arterial Blood Glucose Coronavirus (PCR) 07/09/21 07/09/21 07/10/21 15:21 21:12 05:40 WBC MCV MCH MCHC RDW Lymph % (Auto) Park % (Auto) Eos % (Auto) Lymph # (Auto) Park # (Auto) Eos # (Auto) Baso # (Auto) Seg Neutrophils % Seg Neuts % (Manual) Lymphocytes % (Manual) Seg Neutrophils # Seg Neutrophils # Man Lymphocytes # (Manual) D-Dimer ABG pH POC ABG pCO2 POC ABG pO2 ABG pO2 ABG HCO3 ABG O2 Saturation ABG Base Excess ABG Oxyhemoglobin ABG Sodium ABG Chloride ABG Glucose Oxyhemoglobin Carboxyhemoglobin Sodium Potassium 3.3 L Chloride 95.1 L Carbon Dioxide 39 H BUN Creatinine 0.2 L Glucose 122 H POC Glucose 128 H 196 H Hemoglobin A1c Magnesium Ferritin AST ALT Alkaline Phosphatase Lactate Dehydrogenase C-Reactive Protein Total Protein Albumin Arterial Blood Glucose Coronavirus (PCR) 07/10/21 07/10/21 07/10/21 07:38 11:15 16:29 WBC MCV MCH MCHC RDW Lymph % (Auto) Park % (Auto) Eos % (Auto) Lymph # (Auto) Park # (Auto) Eos # (Auto) Baso # (Auto) Seg Neutrophils % Seg Neuts % (Manual) Lymphocytes % (Manual) Seg Neutrophils # Seg Neutrophils # Man Lymphocytes # (Manual) D-Dimer ABG pH POC ABG pCO2 POC ABG pO2 ABG pO2 ABG HCO3 ABG O2 Saturation ABG Base Excess ABG Oxyhemoglobin ABG Sodium ABG Chloride ABG Glucose Oxyhemoglobin Carboxyhemoglobin Sodium Potassium Chloride Carbon Dioxide BUN Creatinine Glucose POC Glucose 128 H 175 H 174 H Hemoglobin A1c Magnesium Ferritin AST ALT Alkaline Phosphatase Lactate Dehydrogenase C-Reactive Protein Total Protein Albumin Arterial Blood Glucose Coronavirus (PCR) 07/10/21 07/11/21 07/11/21 20:49 05:50 12:08 WBC MCV MCH MCHC RDW Lymph % (Auto) Park % (Auto) Eos % (Auto) Lymph # (Auto) Park # (Auto) Eos # (Auto) Baso # (Auto) Seg Neutrophils % Seg Neuts % (Manual) Lymphocytes % (Manual) Seg Neutrophils # Seg Neutrophils # Man Lymphocytes # (Manual) D-Dimer ABG pH POC ABG pCO2 POC ABG pO2 ABG pO2 ABG HCO3 ABG O2 Saturation ABG Base Excess ABG Oxyhemoglobin ABG Sodium ABG Chloride ABG Glucose Oxyhemoglobin Carboxyhemoglobin Sodium Potassium Chloride 97.3 L Carbon Dioxide 34 H BUN Creatinine 0.2 L Glucose 109 H POC Glucose 142 H 220 H Hemoglobin A1c Magnesium Ferritin AST ALT Alkaline Phosphatase Lactate Dehydrogenase C-Reactive Protein Total Protein Albumin Arterial Blood Glucose Coronavirus (PCR) 07/11/21 07/11/21 07/12/21 17:09 21:55 07:36 WBC MCV MCH MCHC RDW Lymph % (Auto) Park % (Auto) Eos % (Auto) Lymph # (Auto) Park # (Auto) Eos # (Auto) Baso # (Auto) Seg Neutrophils % Seg Neuts % (Manual) Lymphocytes % (Manual) Seg Neutrophils # Seg Neutrophils # Man Lymphocytes # (Manual) D-Dimer ABG pH POC ABG pCO2 POC ABG pO2 ABG pO2 ABG HCO3 ABG O2 Saturation ABG Base Excess ABG Oxyhemoglobin ABG Sodium ABG Chloride ABG Glucose Oxyhemoglobin Carboxyhemoglobin Sodium Potassium Chloride Carbon Dioxide BUN Creatinine Glucose POC Glucose 219 H 124 H 114 H Hemoglobin A1c Magnesium Ferritin AST ALT Alkaline Phosphatase Lactate Dehydrogenase C-Reactive Protein Total Protein Albumin Arterial Blood Glucose Coronavirus (PCR) 07/12/21 07/12/21 07/12/21 11:08 15:43 22:20 WBC MCV MCH MCHC RDW Lymph % (Auto) Park % (Auto) Eos % (Auto) Lymph # (Auto) Park # (Auto) Eos # (Auto) Baso # (Auto) Seg Neutrophils % Seg Neuts % (Manual) Lymphocytes % (Manual) Seg Neutrophils # Seg Neutrophils # Man Lymphocytes # (Manual) D-Dimer ABG pH POC ABG pCO2 POC ABG pO2 ABG pO2 ABG HCO3 ABG O2 Saturation ABG Base Excess ABG Oxyhemoglobin ABG Sodium ABG Chloride ABG Glucose Oxyhemoglobin Carboxyhemoglobin Sodium Potassium Chloride Carbon Dioxide BUN Creatinine Glucose POC Glucose 195 H 276 H 189 H Hemoglobin A1c Magnesium Ferritin AST ALT Alkaline Phosphatase Lactate Dehydrogenase C-Reactive Protein Total Protein Albumin Arterial Blood Glucose Coronavirus (PCR) 07/13/21 07/13/21 07/13/21 08:01 08:08 10:17 WBC MCV MCH MCHC RDW Lymph % (Auto) Park % (Auto) Eos % (Auto) Lymph # (Auto) Park # (Auto) Eos # (Auto) Baso # (Auto) Seg Neutrophils % Seg Neuts % (Manual) Lymphocytes % (Manual) Seg Neutrophils # Seg Neutrophils # Man Lymphocytes # (Manual) D-Dimer ABG pH POC ABG pCO2 POC ABG pO2 ABG pO2 ABG HCO3 ABG O2 Saturation ABG Base Excess ABG Oxyhemoglobin ABG Sodium ABG Chloride ABG Glucose Oxyhemoglobin Carboxyhemoglobin Sodium Potassium Chloride 94.4 L Carbon Dioxide 34 H BUN Creatinine 0.3 L Glucose 149 H POC Glucose 132 H 265 H Hemoglobin A1c Magnesium Ferritin AST ALT Alkaline Phosphatase Lactate Dehydrogenase C-Reactive Protein Total Protein Albumin Arterial Blood Glucose Coronavirus (PCR) 07/13/21 07/13/21 07/14/21 17:58 21:41 07:34 WBC MCV MCH MCHC RDW Lymph % (Auto) Park % (Auto) Eos % (Auto) Lymph # (Auto) Park # (Auto) Eos # (Auto) Baso # (Auto) Seg Neutrophils % Seg Neuts % (Manual) Lymphocytes % (Manual) Seg Neutrophils # Seg Neutrophils # Man Lymphocytes # (Manual) D-Dimer ABG pH POC ABG pCO2 POC ABG pO2 ABG pO2 ABG HCO3 ABG O2 Saturation ABG Base Excess ABG Oxyhemoglobin ABG Sodium ABG Chloride ABG Glucose Oxyhemoglobin Carboxyhemoglobin Sodium Potassium Chloride Carbon Dioxide BUN Creatinine Glucose POC Glucose 217 H 223 H 116 H Hemoglobin A1c Magnesium Ferritin AST ALT Alkaline Phosphatase Lactate Dehydrogenase C-Reactive Protein Total Protein Albumin Arterial Blood Glucose Coronavirus (PCR) 07/14/21 07/14/21 07/14/21 10:50 17:33 20:51 WBC MCV MCH MCHC RDW Lymph % (Auto) Park % (Auto) Eos % (Auto) Lymph # (Auto) Park # (Auto) Eos # (Auto) Baso # (Auto) Seg Neutrophils % Seg Neuts % (Manual) Lymphocytes % (Manual) Seg Neutrophils # Seg Neutrophils # Man Lymphocytes # (Manual) D-Dimer ABG pH POC ABG pCO2 POC ABG pO2 ABG pO2 ABG HCO3 ABG O2 Saturation ABG Base Excess ABG Oxyhemoglobin ABG Sodium ABG Chloride ABG Glucose Oxyhemoglobin Carboxyhemoglobin Sodium Potassium Chloride Carbon Dioxide BUN Creatinine Glucose POC Glucose 191 H 173 H 132 H Hemoglobin A1c Magnesium Ferritin AST ALT Alkaline Phosphatase Lactate Dehydrogenase C-Reactive Protein Total Protein Albumin Arterial Blood Glucose Coronavirus (PCR) 07/15/21 07/15/21 07/15/21 04:00 07:59 12:31 WBC MCV MCH MCHC RDW Lymph % (Auto) Park % (Auto) Eos % (Auto) Lymph # (Auto) Park # (Auto) Eos # (Auto) Baso # (Auto) Seg Neutrophils % Seg Neuts % (Manual) Lymphocytes % (Manual) Seg Neutrophils # Seg Neutrophils # Man Lymphocytes # (Manual) D-Dimer ABG pH POC ABG pCO2 POC ABG pO2 ABG pO2 ABG HCO3 ABG O2 Saturation ABG Base Excess ABG Oxyhemoglobin ABG Sodium ABG Chloride ABG Glucose Oxyhemoglobin Carboxyhemoglobin Sodium Potassium Chloride 96.0 L Carbon Dioxide 32 H BUN Creatinine 0.3 L Glucose 208 H POC Glucose 117 H 195 H Hemoglobin A1c Magnesium Ferritin AST ALT Alkaline Phosphatase Lactate Dehydrogenase C-Reactive Protein Total Protein Albumin Arterial Blood Glucose Coronavirus (PCR) 07/15/21 07/15/21 07/16/21 18:00 20:57 04:40 WBC MCV MCH MCHC RDW 17.1 H Lymph % (Auto) Park % (Auto) Eos % (Auto) Lymph # (Auto) Park # (Auto) Eos # (Auto) Baso # (Auto) Seg Neutrophils % Seg Neuts % (Manual) Lymphocytes % (Manual) Seg Neutrophils # Seg Neutrophils # Man Lymphocytes # (Manual) D-Dimer ABG pH POC ABG pCO2 POC ABG pO2 ABG pO2 ABG HCO3 ABG O2 Saturation ABG Base Excess ABG Oxyhemoglobin ABG Sodium ABG Chloride ABG Glucose Oxyhemoglobin Carboxyhemoglobin Sodium Potassium Chloride Carbon Dioxide BUN Creatinine Glucose POC Glucose 217 H 111 H Hemoglobin A1c Magnesium Ferritin AST ALT Alkaline Phosphatase Lactate Dehydrogenase C-Reactive Protein Total Protein Albumin Arterial Blood Glucose Coronavirus (PCR) 07/16/21 07/16/21 07/16/21 04:40 07:08 11:11 WBC MCV MCH MCHC RDW Lymph % (Auto) Park % (Auto) Eos % (Auto) Lymph # (Auto) Park # (Auto) Eos # (Auto) Baso # (Auto) Seg Neutrophils % Seg Neuts % (Manual) Lymphocytes % (Manual) Seg Neutrophils # Seg Neutrophils # Man Lymphocytes # (Manual) D-Dimer ABG pH POC ABG pCO2 POC ABG pO2 ABG pO2 ABG HCO3 ABG O2 Saturation ABG Base Excess ABG Oxyhemoglobin ABG Sodium ABG Chloride ABG Glucose Oxyhemoglobin Carboxyhemoglobin Sodium Potassium 3.4 L Chloride 94.6 L Carbon Dioxide 36 H BUN Creatinine < 0.2 L Glucose 101 H POC Glucose 118 H 184 H Hemoglobin A1c Magnesium Ferritin AST ALT Alkaline Phosphatase Lactate Dehydrogenase C-Reactive Protein Total Protein Albumin Arterial Blood Glucose Coronavirus (PCR) 07/16/21 07/16/21 07/17/21 17:29 22:01 08:10 WBC MCV MCH MCHC RDW Lymph % (Auto) Park % (Auto) Eos % (Auto) Lymph # (Auto) Park # (Auto) Eos # (Auto) Baso # (Auto) Seg Neutrophils % Seg Neuts % (Manual) Lymphocytes % (Manual) Seg Neutrophils # Seg Neutrophils # Man Lymphocytes # (Manual) D-Dimer ABG pH POC ABG pCO2 POC ABG pO2 ABG pO2 ABG HCO3 ABG O2 Saturation ABG Base Excess ABG Oxyhemoglobin ABG Sodium ABG Chloride ABG Glucose Oxyhemoglobin Carboxyhemoglobin Sodium Potassium Chloride Carbon Dioxide BUN Creatinine Glucose POC Glucose 200 H 147 H 118 H Hemoglobin A1c Magnesium Ferritin AST ALT Alkaline Phosphatase Lactate Dehydrogenase C-Reactive Protein Total Protein Albumin Arterial Blood Glucose Coronavirus (PCR) 07/17/21 07/17/21 07/17/21 11:38 16:24 21:13 WBC MCV MCH MCHC RDW Lymph % (Auto) Park % (Auto) Eos % (Auto) Lymph # (Auto) Park # (Auto) Eos # (Auto) Baso # (Auto) Seg Neutrophils % Seg Neuts % (Manual) Lymphocytes % (Manual) Seg Neutrophils # Seg Neutrophils # Man Lymphocytes # (Manual) D-Dimer ABG pH POC ABG pCO2 POC ABG pO2 ABG pO2 ABG HCO3 ABG O2 Saturation ABG Base Excess ABG Oxyhemoglobin ABG Sodium ABG Chloride ABG Glucose Oxyhemoglobin Carboxyhemoglobin Sodium Potassium Chloride Carbon Dioxide BUN Creatinine Glucose POC Glucose 151 H 268 H 115 H Hemoglobin A1c Magnesium Ferritin AST ALT Alkaline Phosphatase Lactate Dehydrogenase C-Reactive Protein Total Protein Albumin Arterial Blood Glucose Coronavirus (PCR) 07/18/21 07/18/21 07/18/21 07:58 12:29 20:24 WBC MCV MCH MCHC RDW Lymph % (Auto) Park % (Auto) Eos % (Auto) Lymph # (Auto) Park # (Auto) Eos # (Auto) Baso # (Auto) Seg Neutrophils % Seg Neuts % (Manual) Lymphocytes % (Manual) Seg Neutrophils # Seg Neutrophils # Man Lymphocytes # (Manual) D-Dimer ABG pH POC ABG pCO2 POC ABG pO2 ABG pO2 ABG HCO3 ABG O2 Saturation ABG Base Excess ABG Oxyhemoglobin ABG Sodium ABG Chloride ABG Glucose Oxyhemoglobin Carboxyhemoglobin Sodium Potassium Chloride Carbon Dioxide BUN Creatinine Glucose POC Glucose 135 H 139 H 130 H Hemoglobin A1c Magnesium Ferritin AST ALT Alkaline Phosphatase Lactate Dehydrogenase C-Reactive Protein Total Protein Albumin Arterial Blood Glucose Coronavirus (PCR) 07/19/21 07/19/21 07/19/21 06:55 06:55 07:54 WBC 14.5 H MCV MCH MCHC RDW 17.3 H Lymph % (Auto) 9.6 L Park % (Auto) Eos % (Auto) Lymph # (Auto) Park # (Auto) Eos # (Auto) 0.6 H Baso # (Auto) Seg Neutrophils % 80.3 H Seg Neuts % (Manual) Lymphocytes % (Manual) Seg Neutrophils # 11.7 H Seg Neutrophils # Man Lymphocytes # (Manual) D-Dimer ABG pH POC ABG pCO2 67.9 H POC ABG pO2 131.0 H ABG pO2 ABG HCO3 ABG O2 Saturation ABG Base Excess ABG Oxyhemoglobin ABG Sodium ABG Chloride 97.0 L ABG Glucose 133 H Oxyhemoglobin Carboxyhemoglobin Sodium Potassium Chloride 95.3 L Carbon Dioxide 35 H BUN Creatinine < 0.2 L Glucose 138 H POC Glucose Hemoglobin A1c Magnesium Ferritin AST ALT Alkaline Phosphatase Lactate Dehydrogenase C-Reactive Protein Total Protein Albumin Arterial Blood Glucose 133 H Coronavirus (PCR) 07/19/21 07/19/21 07/19/21 08:10 11:43 17:04 WBC MCV MCH MCHC RDW Lymph % (Auto) Park % (Auto) Eos % (Auto) Lymph # (Auto) Park # (Auto) Eos # (Auto) Baso # (Auto) Seg Neutrophils % Seg Neuts % (Manual) Lymphocytes % (Manual) Seg Neutrophils # Seg Neutrophils # Man Lymphocytes # (Manual) D-Dimer ABG pH POC ABG pCO2 POC ABG pO2 ABG pO2 ABG HCO3 ABG O2 Saturation ABG Base Excess ABG Oxyhemoglobin ABG Sodium ABG Chloride ABG Glucose Oxyhemoglobin Carboxyhemoglobin Sodium Potassium Chloride Carbon Dioxide BUN Creatinine Glucose POC Glucose 129 H 126 H 108 H Hemoglobin A1c Magnesium Ferritin AST ALT Alkaline Phosphatase Lactate Dehydrogenase C-Reactive Protein Total Protein Albumin Arterial Blood Glucose Coronavirus (PCR) 07/19/21 07/20/21 07/20/21 21:10 04:00 04:00 WBC MCV MCH MCHC RDW 17.0 H Lymph % (Auto) Park % (Auto) 8.9 H Eos % (Auto) 6.3 H Lymph # (Auto) Park # (Auto) 0.9 H Eos # (Auto) 0.6 H Baso # (Auto) Seg Neutrophils % 70.2 H Seg Neuts % (Manual) Lymphocytes % (Manual) Seg Neutrophils # Seg Neutrophils # Man Lymphocytes # (Manual) D-Dimer ABG pH POC ABG pCO2 POC ABG pO2 ABG pO2 ABG HCO3 ABG O2 Saturation ABG Base Excess ABG Oxyhemoglobin ABG Sodium ABG Chloride ABG Glucose Oxyhemoglobin Carboxyhemoglobin Sodium Potassium Chloride 96.7 L Carbon Dioxide 36 H BUN Creatinine 0.2 L Glucose 102 H POC Glucose 109 H Hemoglobin A1c Magnesium Ferritin AST ALT Alkaline Phosphatase Lactate Dehydrogenase C-Reactive Protein Total Protein Albumin 3.2 L Arterial Blood Glucose Coronavirus (PCR) 07/20/21 07/20/21 07/20/21 11:15 15:34 17:01 WBC MCV MCH MCHC RDW Lymph % (Auto) Park % (Auto) Eos % (Auto) Lymph # (Auto) Park # (Auto) Eos # (Auto) Baso # (Auto) Seg Neutrophils % Seg Neuts % (Manual) Lymphocytes % (Manual) Seg Neutrophils # Seg Neutrophils # Man Lymphocytes # (Manual) D-Dimer ABG pH POC ABG pCO2 POC ABG pO2 ABG pO2 ABG HCO3 ABG O2 Saturation ABG Base Excess ABG Oxyhemoglobin ABG Sodium ABG Chloride ABG Glucose Oxyhemoglobin Carboxyhemoglobin Sodium Potassium Chloride Carbon Dioxide BUN Creatinine Glucose POC Glucose 109 H 152 H 125 H Hemoglobin A1c Magnesium Ferritin AST ALT Alkaline Phosphatase Lactate Dehydrogenase C-Reactive Protein Total Protein Albumin Arterial Blood Glucose Coronavirus (PCR) 07/20/21 07/21/21 07/21/21 21:00 04:48 04:48 WBC 12.8 H MCV MCH MCHC RDW 16.8 H Lymph % (Auto) 9.3 L Park % (Auto) Eos % (Auto) Lymph # (Auto) Park # (Auto) 0.9 H Eos # (Auto) Baso # (Auto) Seg Neutrophils % 81.1 H Seg Neuts % (Manual) Lymphocytes % (Manual) Seg Neutrophils # 10.4 H Seg Neutrophils # Man Lymphocytes # (Manual) D-Dimer ABG pH POC ABG pCO2 POC ABG pO2 ABG pO2 ABG HCO3 ABG O2 Saturation ABG Base Excess ABG Oxyhemoglobin ABG Sodium ABG Chloride ABG Glucose Oxyhemoglobin Carboxyhemoglobin Sodium Potassium Chloride 95.4 L Carbon Dioxide 33 H BUN 6 L Creatinine < 0.2 L Glucose 155 H POC Glucose 211 H Hemoglobin A1c Magnesium 1.60 L Ferritin AST ALT Alkaline Phosphatase Lactate Dehydrogenase C-Reactive Protein Total Protein Albumin Arterial Blood Glucose Coronavirus (PCR) 07/21/21 07/21/21 07/21/21 07:52 11:05 17:01 WBC MCV MCH MCHC RDW Lymph % (Auto) Park % (Auto) Eos % (Auto) Lymph # (Auto) Park # (Auto) Eos # (Auto) Baso # (Auto) Seg Neutrophils % Seg Neuts % (Manual) Lymphocytes % (Manual) Seg Neutrophils # Seg Neutrophils # Man Lymphocytes # (Manual) D-Dimer ABG pH POC ABG pCO2 POC ABG pO2 ABG pO2 ABG HCO3 ABG O2 Saturation ABG Base Excess ABG Oxyhemoglobin ABG Sodium ABG Chloride ABG Glucose Oxyhemoglobin Carboxyhemoglobin Sodium Potassium Chloride Carbon Dioxide BUN Creatinine Glucose POC Glucose 116 H 207 H 133 H Hemoglobin A1c Magnesium Ferritin AST ALT Alkaline Phosphatase Lactate Dehydrogenase C-Reactive Protein Total Protein Albumin Arterial Blood Glucose Coronavirus (PCR) 07/21/21 07/22/21 07/22/21 21:17 07:55 07:55 WBC MCV MCH MCHC RDW 16.5 H Lymph % (Auto) Park % (Auto) 8.6 H Eos % (Auto) Lymph # (Auto) Park # (Auto) Eos # (Auto) Baso # (Auto) Seg Neutrophils % 72.3 H Seg Neuts % (Manual) Lymphocytes % (Manual) Seg Neutrophils # Seg Neutrophils # Man Lymphocytes # (Manual) D-Dimer ABG pH POC ABG pCO2 POC ABG pO2 ABG pO2 ABG HCO3 ABG O2 Saturation ABG Base Excess ABG Oxyhemoglobin ABG Sodium ABG Chloride ABG Glucose Oxyhemoglobin Carboxyhemoglobin Sodium Potassium Chloride 94.6 L Carbon Dioxide 42 H* D BUN 5 L Creatinine < 0.2 L Glucose POC Glucose 152 H Hemoglobin A1c Magnesium Ferritin AST ALT Alkaline Phosphatase Lactate Dehydrogenase C-Reactive Protein Total Protein Albumin Arterial Blood Glucose Coronavirus (PCR) 07/22/21 07/22/21 07/22/21 11:25 12:05 15:40 WBC MCV MCH MCHC RDW Lymph % (Auto) Park % (Auto) Eos % (Auto) Lymph # (Auto) Park # (Auto) Eos # (Auto) Baso # (Auto) Seg Neutrophils % Seg Neuts % (Manual) Lymphocytes % (Manual) Seg Neutrophils # Seg Neutrophils # Man Lymphocytes # (Manual) D-Dimer ABG pH 7.338 L POC ABG pCO2 POC ABG pO2 ABG pO2 66.1 L ABG HCO3 45.0 H ABG O2 Saturation 94.2 L ABG Base Excess 15.2 H ABG Oxyhemoglobin ABG Sodium ABG Chloride ABG Glucose Oxyhemoglobin 91.9 L Carboxyhemoglobin Sodium Potassium Chloride Carbon Dioxide BUN Creatinine Glucose POC Glucose 146 H 219 H Hemoglobin A1c Magnesium Ferritin AST ALT Alkaline Phosphatase Lactate Dehydrogenase C-Reactive Protein Total Protein Albumin Arterial Blood Glucose Coronavirus (PCR) 07/22/21 07/23/21 07/23/21 21:26 04:35 04:35 WBC MCV 98 H MCH MCHC RDW 16.2 H Lymph % (Auto) 7.9 L [place] % (Auto) Eos % (Auto) Lymph # (Auto) 0.9 L [place] # (Auto) Eos # (Auto) Baso # (Auto) Seg Neutrophils % 85.3 H Seg Neuts % (Manual) Lymphocytes % (Manual) Seg Neutrophils # 9.2 H Seg Neutrophils # Man Lymphocytes # (Manual) D-Dimer ABG pH POC ABG pCO2 POC ABG pO2 ABG pO2 ABG HCO3 ABG O2 Saturation ABG Base Excess ABG Oxyhemoglobin ABG Sodium ABG Chloride ABG Glucose Oxyhemoglobin Carboxyhemoglobin Sodium Potassium Chloride 93.9 L Carbon Dioxide 44 H* BUN Creatinine < 0.2 L Glucose 149 H POC Glucose 131 H Hemoglobin A1c Magnesium Ferritin AST ALT Alkaline Phosphatase Lactate Dehydrogenase C-Reactive Protein Total Protein Albumin Arterial Blood Glucose Coronavirus (PCR) 07/23/21 07/23/21 07/23/21 07:20 11:34 16:11 WBC MCV MCH MCHC RDW Lymph % (Auto) Park % (Auto) Eos % (Auto) Lymph # (Auto) Park # (Auto) Eos # (Auto) Baso # (Auto) Seg Neutrophils % Seg Neuts % (Manual) Lymphocytes % (Manual) Seg Neutrophils # Seg Neutrophils # Man Lymphocytes # (Manual) D-Dimer ABG pH POC ABG pCO2 POC ABG pO2 ABG pO2 ABG HCO3 ABG O2 Saturation ABG Base Excess ABG Oxyhemoglobin ABG Sodium ABG Chloride ABG Glucose Oxyhemoglobin Carboxyhemoglobin Sodium Potassium Chloride Carbon Dioxide BUN Creatinine Glucose POC Glucose 116 H 172 H 110 H Hemoglobin A1c Magnesium Ferritin AST ALT Alkaline Phosphatase Lactate Dehydrogenase C-Reactive Protein Total Protein Albumin Arterial Blood Glucose Coronavirus (PCR) 07/23/21 07/23/21 07/24/21 18:11 21:33 04:10 WBC MCV MCH MCHC RDW Lymph % (Auto) Park % (Auto) Eos % (Auto) Lymph # (Auto) Park # (Auto) Eos # (Auto) Baso # (Auto) Seg Neutrophils % Seg Neuts % (Manual) Lymphocytes % (Manual) Seg Neutrophils # Seg Neutrophils # Man Lymphocytes # (Manual) D-Dimer ABG pH POC ABG pCO2 78.3 H POC ABG pO2 80.7 L ABG pO2 ABG HCO3 ABG O2 Saturation ABG Base Excess ABG Oxyhemoglobin ABG Sodium 134.9 L ABG Chloride 89.0 L ABG Glucose 200 H Oxyhemoglobin Carboxyhemoglobin Sodium Potassium 3.5 L D Chloride 92.4 L Carbon Dioxide 42 H* BUN Creatinine < 0.2 L Glucose 123 H POC Glucose 108 H Hemoglobin A1c Magnesium Ferritin AST ALT Alkaline Phosphatase Lactate Dehydrogenase C-Reactive Protein Total Protein Albumin Arterial Blood Glucose 200 H Coronavirus (PCR) 07/24/21 07/24/21 07/24/21 11:01 16:56 22:06 WBC MCV MCH MCHC RDW Lymph % (Auto) Park % (Auto) Eos % (Auto) Lymph # (Auto) Park # (Auto) Eos # (Auto) Baso # (Auto) Seg Neutrophils % Seg Neuts % (Manual) Lymphocytes % (Manual) Seg Neutrophils # Seg Neutrophils # Man Lymphocytes # (Manual) D-Dimer ABG pH POC ABG pCO2 POC ABG pO2 ABG pO2 ABG HCO3 ABG O2 Saturation ABG Base Excess ABG Oxyhemoglobin ABG Sodium ABG Chloride ABG Glucose Oxyhemoglobin Carboxyhemoglobin Sodium Potassium Chloride Carbon Dioxide BUN Creatinine Glucose POC Glucose 171 H 111 H 136 H Hemoglobin A1c Magnesium Ferritin AST ALT Alkaline Phosphatase Lactate Dehydrogenase C-Reactive Protein Total Protein Albumin Arterial Blood Glucose Coronavirus (PCR) 07/25/21 07/25/21 07/25/21 07:40 10:59 11:58 WBC MCV MCH MCHC RDW Lymph % (Auto) Park % (Auto) Eos % (Auto) Lymph # (Auto) Park # (Auto) Eos # (Auto) Baso # (Auto) Seg Neutrophils % Seg Neuts % (Manual) Lymphocytes % (Manual) Seg Neutrophils # Seg Neutrophils # Man Lymphocytes # (Manual) D-Dimer ABG pH POC ABG pCO2 POC ABG pO2 ABG pO2 ABG HCO3 ABG O2 Saturation ABG Base Excess ABG Oxyhemoglobin ABG Sodium ABG Chloride ABG Glucose Oxyhemoglobin Carboxyhemoglobin Sodium Potassium Chloride 88.6 L Carbon Dioxide 43 H* BUN Creatinine 0.2 L Glucose 180 H POC Glucose 120 H 153 H Hemoglobin A1c Magnesium Ferritin AST ALT Alkaline Phosphatase Lactate Dehydrogenase C-Reactive Protein Total Protein Albumin Arterial Blood Glucose Coronavirus (PCR) 07/25/21 07/25/21 07/26/21 16:03 20:18 09:56 WBC MCV MCH MCHC RDW Lymph % (Auto) Park % (Auto) Eos % (Auto) Lymph # (Auto) Park # (Auto) Eos # (Auto) Baso # (Auto) Seg Neutrophils % Seg Neuts % (Manual) Lymphocytes % (Manual) Seg Neutrophils # Seg Neutrophils # Man Lymphocytes # (Manual) D-Dimer ABG pH POC ABG pCO2 POC ABG pO2 ABG pO2 ABG HCO3 ABG O2 Saturation ABG Base Excess ABG Oxyhemoglobin ABG Sodium ABG Chloride ABG Glucose Oxyhemoglobin Carboxyhemoglobin Sodium Potassium Chloride 91.3 L Carbon Dioxide 45 H* BUN Creatinine < 0.2 L Glucose 128 H POC Glucose 143 H 133 H Hemoglobin A1c Magnesium Ferritin AST ALT Alkaline Phosphatase Lactate Dehydrogenase C-Reactive Protein Total Protein Albumin 3.2 L Arterial Blood Glucose Coronavirus (PCR) 07/26/21 07/26/21 07/27/21 17:56 21:24 07:10 WBC MCV MCH MCHC RDW Lymph % (Auto) Park % (Auto) Eos % (Auto) Lymph # (Auto) Park # (Auto) Eos # (Auto) Baso # (Auto) Seg Neutrophils % Seg Neuts % (Manual) Lymphocytes % (Manual) Seg Neutrophils # Seg Neutrophils # Man Lymphocytes # (Manual) D-Dimer ABG pH POC ABG pCO2 POC ABG pO2 ABG pO2 ABG HCO3 ABG O2 Saturation ABG Base Excess ABG Oxyhemoglobin ABG Sodium ABG Chloride ABG Glucose Oxyhemoglobin Carboxyhemoglobin Sodium Potassium Chloride Carbon Dioxide BUN Creatinine Glucose POC Glucose 170 H 122 H 119 H Hemoglobin A1c Magnesium Ferritin AST ALT Alkaline Phosphatase Lactate Dehydrogenase C-Reactive Protein Total Protein Albumin Arterial Blood Glucose Coronavirus (PCR) 07/27/21 07/27/21 07/28/21 11:44 21:31 07:30 WBC MCV MCH MCHC RDW Lymph % (Auto) Park % (Auto) Eos % (Auto) Lymph # (Auto) Park # (Auto) Eos # (Auto) Baso # (Auto) Seg Neutrophils % Seg Neuts % (Manual) Lymphocytes % (Manual) Seg Neutrophils # Seg Neutrophils # Man Lymphocytes # (Manual) D-Dimer ABG pH POC ABG pCO2 POC ABG pO2 ABG pO2 ABG HCO3 ABG O2 Saturation ABG Base Excess ABG Oxyhemoglobin ABG Sodium ABG Chloride ABG Glucose Oxyhemoglobin Carboxyhemoglobin Sodium Potassium 3.4 L D Chloride 91.4 L Carbon Dioxide 39 H BUN Creatinine < 0.2 L Glucose 140 H POC Glucose 176 H 162 H Hemoglobin A1c Magnesium Ferritin AST ALT Alkaline Phosphatase Lactate Dehydrogenase C-Reactive Protein Total Protein Albumin Arterial Blood Glucose Coronavirus (PCR) 07/28/21 07/28/21 07/28/21 08:43 12:25 16:40 WBC MCV MCH MCHC RDW Lymph % (Auto) Park % (Auto) Eos % (Auto) Lymph # (Auto) Park # (Auto) Eos # (Auto) Baso # (Auto) Seg Neutrophils % Seg Neuts % (Manual) Lymphocytes % (Manual) Seg Neutrophils # Seg Neutrophils # Man Lymphocytes # (Manual) D-Dimer ABG pH POC ABG pCO2 POC ABG pO2 ABG pO2 ABG HCO3 ABG O2 Saturation ABG Base Excess ABG Oxyhemoglobin ABG Sodium ABG Chloride ABG Glucose Oxyhemoglobin Carboxyhemoglobin Sodium Potassium Chloride Carbon Dioxide BUN Creatinine Glucose POC Glucose 122 H 162 H 234 H Hemoglobin A1c Magnesium Ferritin AST ALT Alkaline Phosphatase Lactate Dehydrogenase C-Reactive Protein Total Protein Albumin Arterial Blood Glucose Coronavirus (PCR) 07/28/21 07/29/21 07/29/21 21:27 04:40 09:51 WBC MCV MCH MCHC RDW Lymph % (Auto) Park % (Auto) Eos % (Auto) Lymph # (Auto) Park # (Auto) Eos # (Auto) Baso # (Auto) Seg Neutrophils % Seg Neuts % (Manual) Lymphocytes % (Manual) Seg Neutrophils # Seg Neutrophils # Man Lymphocytes # (Manual) D-Dimer ABG pH POC ABG pCO2 POC ABG pO2 ABG pO2 ABG HCO3 ABG O2 Saturation ABG Base Excess ABG Oxyhemoglobin ABG Sodium ABG Chloride ABG Glucose Oxyhemoglobin Carboxyhemoglobin Sodium Potassium 3.4 L Chloride 92.3 L Carbon Dioxide 40 H BUN Creatinine < 0.2 L Glucose 125 H POC Glucose 155 H 112 H Hemoglobin A1c Magnesium Ferritin AST ALT Alkaline Phosphatase Lactate Dehydrogenase C-Reactive Protein Total Protein Albumin Arterial Blood Glucose Coronavirus (PCR) 07/29/21 07/29/21 07/29/21 12:03 16:39 21:28 WBC MCV MCH MCHC RDW Lymph % (Auto) Park % (Auto) Eos % (Auto) Lymph # (Auto) Park # (Auto) Eos # (Auto) Baso # (Auto) Seg Neutrophils % Seg Neuts % (Manual) Lymphocytes % (Manual) Seg Neutrophils # Seg Neutrophils # Man Lymphocytes # (Manual) D-Dimer ABG pH POC ABG pCO2 POC ABG pO2 ABG pO2 ABG HCO3 ABG O2 Saturation ABG Base Excess ABG Oxyhemoglobin ABG Sodium ABG Chloride ABG Glucose Oxyhemoglobin Carboxyhemoglobin Sodium Potassium Chloride Carbon Dioxide BUN Creatinine Glucose POC Glucose 188 H 141 H 130 H Hemoglobin A1c Magnesium Ferritin AST ALT Alkaline Phosphatase Lactate Dehydrogenase C-Reactive Protein Total Protein Albumin Arterial Blood Glucose Coronavirus (PCR) 07/30/21 07/30/21 07/30/21 08:37 11:56 22:25 WBC MCV MCH MCHC RDW Lymph % (Auto) Park % (Auto) Eos % (Auto) Lymph # (Auto) Park # (Auto) Eos # (Auto) Baso # (Auto) Seg Neutrophils % Seg Neuts % (Manual) Lymphocytes % (Manual) Seg Neutrophils # Seg Neutrophils # Man Lymphocytes # (Manual) D-Dimer ABG pH POC ABG pCO2 POC ABG pO2 ABG pO2 ABG HCO3 ABG O2 Saturation ABG Base Excess ABG Oxyhemoglobin ABG Sodium ABG Chloride ABG Glucose Oxyhemoglobin Carboxyhemoglobin Sodium Potassium Chloride Carbon Dioxide BUN Creatinine Glucose POC Glucose 133 H 156 H 118 H Hemoglobin A1c Magnesium Ferritin AST ALT Alkaline Phosphatase Lactate Dehydrogenase C-Reactive Protein Total Protein Albumin Arterial Blood Glucose Coronavirus (PCR) 07/31/21 07/31/21 07/31/21 06:43 11:55 16:39 WBC MCV MCH MCHC RDW Lymph % (Auto) Park % (Auto) Eos % (Auto) Lymph # (Auto) Park # (Auto) Eos # (Auto) Baso # (Auto) Seg Neutrophils % Seg Neuts % (Manual) Lymphocytes % (Manual) Seg Neutrophils # Seg Neutrophils # Man Lymphocytes # (Manual) D-Dimer ABG pH POC ABG pCO2 POC ABG pO2 ABG pO2 ABG HCO3 ABG O2 Saturation ABG Base Excess ABG Oxyhemoglobin ABG Sodium ABG Chloride ABG Glucose Oxyhemoglobin Carboxyhemoglobin Sodium Potassium Chloride Carbon Dioxide BUN Creatinine Glucose POC Glucose 115 H 114 H 185 H Hemoglobin A1c Magnesium Ferritin AST ALT Alkaline Phosphatase Lactate Dehydrogenase C-Reactive Protein Total Protein Albumin Arterial Blood Glucose Coronavirus (PCR) 07/31/21 08/01/21 08/01/21 23:22 11:35 15:34 WBC MCV MCH MCHC RDW Lymph % (Auto) Park % (Auto) Eos % (Auto) Lymph # (Auto) Park # (Auto) Eos # (Auto) Baso # (Auto) Seg Neutrophils % Seg Neuts % (Manual) Lymphocytes % (Manual) Seg Neutrophils # Seg Neutrophils # Man Lymphocytes # (Manual) D-Dimer ABG pH POC ABG pCO2 POC ABG pO2 ABG pO2 ABG HCO3 ABG O2 Saturation ABG Base Excess ABG Oxyhemoglobin ABG Sodium ABG Chloride ABG Glucose Oxyhemoglobin Carboxyhemoglobin Sodium Potassium Chloride Carbon Dioxide BUN Creatinine Glucose POC Glucose 213 H 122 H 142 H Hemoglobin A1c Magnesium Ferritin AST ALT Alkaline Phosphatase Lactate Dehydrogenase C-Reactive Protein Total Protein Albumin Arterial Blood Glucose Coronavirus (PCR) 08/01/21 08/02/21 08/02/21 22:15 07:41 11:58 WBC MCV MCH MCHC RDW Lymph % (Auto) Park % (Auto) Eos % (Auto) Lymph # (Auto) Park # (Auto) Eos # (Auto) Baso # (Auto) Seg Neutrophils % Seg Neuts % (Manual) Lymphocytes % (Manual) Seg Neutrophils # Seg Neutrophils # Man Lymphocytes # (Manual) D-Dimer ABG pH POC ABG pCO2 POC ABG pO2 ABG pO2 ABG HCO3 ABG O2 Saturation ABG Base Excess ABG Oxyhemoglobin ABG Sodium ABG Chloride ABG Glucose Oxyhemoglobin Carboxyhemoglobin Sodium Potassium Chloride Carbon Dioxide BUN Creatinine Glucose POC Glucose 121 H 109 H 136 H Hemoglobin A1c Magnesium Ferritin AST ALT Alkaline Phosphatase Lactate Dehydrogenase C-Reactive Protein Total Protein Albumin Arterial Blood Glucose Coronavirus (PCR) 08/02/21 08/03/21 08/03/21 21:19 07:47 11:18 WBC MCV MCH MCHC RDW Lymph % (Auto) Park % (Auto) Eos % (Auto) Lymph # (Auto) Park # (Auto) Eos # (Auto) Baso # (Auto) Seg Neutrophils % Seg Neuts % (Manual) Lymphocytes % (Manual) Seg Neutrophils # Seg Neutrophils # Man Lymphocytes # (Manual) D-Dimer ABG pH POC ABG pCO2 POC ABG pO2 ABG pO2 ABG HCO3 ABG O2 Saturation ABG Base Excess ABG Oxyhemoglobin ABG Sodium ABG Chloride ABG Glucose Oxyhemoglobin Carboxyhemoglobin Sodium Potassium Chloride Carbon Dioxide BUN Creatinine Glucose POC Glucose 159 H 111 H 202 H Hemoglobin A1c Magnesium Ferritin AST ALT Alkaline Phosphatase Lactate Dehydrogenase C-Reactive Protein Total Protein Albumin Arterial Blood Glucose Coronavirus (PCR) 08/03/21 08/03/21 08/04/21 16:47 21:26 07:57 WBC MCV MCH MCHC RDW Lymph % (Auto) Park % (Auto) Eos % (Auto) Lymph # (Auto) Park # (Auto) Eos # (Auto) Baso # (Auto) Seg Neutrophils % Seg Neuts % (Manual) Lymphocytes % (Manual) Seg Neutrophils # Seg Neutrophils # Man Lymphocytes # (Manual) D-Dimer ABG pH POC ABG pCO2 POC ABG pO2 ABG pO2 ABG HCO3 ABG O2 Saturation ABG Base Excess ABG Oxyhemoglobin ABG Sodium ABG Chloride ABG Glucose Oxyhemoglobin Carboxyhemoglobin Sodium Potassium Chloride Carbon Dioxide BUN Creatinine Glucose POC Glucose 133 H 148 H 129 H Hemoglobin A1c Magnesium Ferritin AST ALT Alkaline Phosphatase Lactate Dehydrogenase C-Reactive Protein Total Protein Albumin Arterial Blood Glucose Coronavirus (PCR) 08/04/21 08/04/21 08/04/21 08:05 11:42 16:53 WBC MCV MCH MCHC RDW Lymph % (Auto) Park % (Auto) Eos % (Auto) Lymph # (Auto) Park # (Auto) Eos # (Auto) Baso # (Auto) Seg Neutrophils % Seg Neuts % (Manual) Lymphocytes % (Manual) Seg Neutrophils # Seg Neutrophils # Man Lymphocytes # (Manual) D-Dimer ABG pH POC ABG pCO2 POC ABG pO2 ABG pO2 ABG HCO3 ABG O2 Saturation ABG Base Excess ABG Oxyhemoglobin ABG Sodium ABG Chloride ABG Glucose Oxyhemoglobin Carboxyhemoglobin Sodium Potassium Chloride Carbon Dioxide BUN Creatinine Glucose POC Glucose 145 H 187 H 112 H Hemoglobin A1c Magnesium Ferritin AST ALT Alkaline Phosphatase Lactate Dehydrogenase C-Reactive Protein Total Protein Albumin Arterial Blood Glucose Coronavirus (PCR) 08/04/21 08/05/21 08/05/21 21:27 07:35 11:19 WBC MCV MCH MCHC RDW Lymph % (Auto) Park % (Auto) Eos % (Auto) Lymph # (Auto) Park # (Auto) Eos # (Auto) Baso # (Auto) Seg Neutrophils % Seg Neuts % (Manual) Lymphocytes % (Manual) Seg Neutrophils # Seg Neutrophils # Man Lymphocytes # (Manual) D-Dimer ABG pH POC ABG pCO2 POC ABG pO2 ABG pO2 ABG HCO3 ABG O2 Saturation ABG Base Excess ABG Oxyhemoglobin ABG Sodium ABG Chloride ABG Glucose Oxyhemoglobin Carboxyhemoglobin Sodium Potassium Chloride Carbon Dioxide BUN Creatinine Glucose POC Glucose 189 H 146 H 244 H Hemoglobin A1c Magnesium Ferritin AST ALT Alkaline Phosphatase Lactate Dehydrogenase C-Reactive Protein Total Protein Albumin Arterial Blood Glucose Coronavirus (PCR) 08/05/21 08/06/21 08/06/21 22:16 07:29 11:16 WBC MCV MCH MCHC RDW Lymph % (Auto) Park % (Auto) Eos % (Auto) Lymph # (Auto) Park # (Auto) Eos # (Auto) Baso # (Auto) Seg Neutrophils % Seg Neuts % (Manual) Lymphocytes % (Manual) Seg Neutrophils # Seg Neutrophils # Man Lymphocytes # (Manual) D-Dimer ABG pH POC ABG pCO2 POC ABG pO2 ABG pO2 ABG HCO3 ABG O2 Saturation ABG Base Excess ABG Oxyhemoglobin ABG Sodium ABG Chloride ABG Glucose Oxyhemoglobin Carboxyhemoglobin Sodium Potassium Chloride Carbon Dioxide BUN Creatinine Glucose POC Glucose 122 H 128 H 228 H Hemoglobin A1c Magnesium Ferritin AST ALT Alkaline Phosphatase Lactate Dehydrogenase C-Reactive Protein Total Protein Albumin Arterial Blood Glucose Coronavirus (PCR) 08/06/21 08/07/21 08/07/21 21:13 07:17 11:54 WBC MCV MCH MCHC RDW Lymph % (Auto) Park % (Auto) Eos % (Auto) Lymph # (Auto) Park # (Auto) Eos # (Auto) Baso # (Auto) Seg Neutrophils % Seg Neuts % (Manual) Lymphocytes % (Manual) Seg Neutrophils # Seg Neutrophils # Man Lymphocytes # (Manual) D-Dimer ABG pH POC ABG pCO2 POC ABG pO2 ABG pO2 ABG HCO3 ABG O2 Saturation ABG Base Excess ABG Oxyhemoglobin ABG Sodium ABG Chloride ABG Glucose Oxyhemoglobin Carboxyhemoglobin Sodium Potassium Chloride Carbon Dioxide BUN Creatinine Glucose POC Glucose 198 H 134 H 107 H Hemoglobin A1c Magnesium Ferritin AST ALT Alkaline Phosphatase Lactate Dehydrogenase C-Reactive Protein Total Protein Albumin Arterial Blood Glucose Coronavirus (PCR) 08/07/21 08/07/21 08/08/21 16:26 21:15 04:51 WBC MCV MCH MCHC RDW Lymph % (Auto) Park % (Auto) Eos % (Auto) Lymph # (Auto) Park # (Auto) Eos # (Auto) Baso # (Auto) Seg Neutrophils % Seg Neuts % (Manual) Lymphocytes % (Manual) Seg Neutrophils # Seg Neutrophils # Man Lymphocytes # (Manual) D-Dimer ABG pH POC ABG pCO2 POC ABG pO2 ABG pO2 ABG HCO3 ABG O2 Saturation ABG Base Excess ABG Oxyhemoglobin ABG Sodium ABG Chloride ABG Glucose Oxyhemoglobin Carboxyhemoglobin Sodium Potassium Chloride 92.9 L Carbon Dioxide 39 H BUN Creatinine < 0.2 L Glucose 105 H POC Glucose 144 H 228 H Hemoglobin A1c Magnesium Ferritin AST ALT Alkaline Phosphatase Lactate Dehydrogenase C-Reactive Protein Total Protein Albumin Arterial Blood Glucose Coronavirus (PCR)
[2021-08-08] MEDS: ENOXAPARIN 40 MG/0.4 ML INJ SUB-Q SCH (21:46)
[2021-08-08] MEDS: ACETAMINOPHEN 325 MG TAB PO PRN (21:47)
[2021-08-09] MEDS: INSULIN LISPRO 100 UNIT/ML SUB-Q SCH ×3 (08:12→22:03)
--- NOTE | 2021-08-09 08:12 | Progress Note ---
Assessment and Plan Assessment and plan: #Acute hypoxic/hypercapneic respiratory failure #Severe ARDS -refused BiPAP overnight, currently on HFNC 35/75 -plan to maintain SpO2 >88%, HFNC during the day and BiPAP at night and PRN -s/p prednisone taper -encouraged patient to prone herself when she is awake -Counseled on importance of BiPAP complianc. Time +10 minutes #Metabolic alkalosis -stable -Patient received multiple doses of Lasix over course of hospital stay but may be 2/2 to compensation for hypercapnea #Heart failure with preserved ejection fraction -TTE: LVEF 55-60% with diastolic dysfunction -will continue to monitor for signs of fluid overload #COVID-19 infection -Continue Covid vitamins #Type 2 diabetes -continue Lantus 5 units daily and sliding scale insulin #Anxiety -Stable -continue xanax #DVT prophylaxis -Lovenox 40 daily #Deconditioning -Will benefit from SNF after prolonged hospital stay Resolved issues #Sepsis secondary to COVID-19 #Iatrogenic diarrhea #Hypomagnesemia #Hyponatremia #Protein calorie malnutrition #Dysuria #Hypokalemia #Possible UTI Disposition Plan: Continue medical management Total Time Spent with Patient (Minutes): 20 minutes History Interval history: No acute events overnight. On HFNC. Patient still refusing to use BiPAP. When asked she said that "makes her feel bad". Explained importance of BiPAP compliance. No complaints at this time. Hospitalist Physical - Physical exam Narrative exam: GENERAL: Well-developed well-nourished. Lying in bed in no acute distress. HEENT: HFNC in place. CHEST/LUNGS: Coarse breath sounds bilaterally. HEART/CARDIOVASCULAR: Mildly tachycardic. No murmur, rubs or gallops appreciated. ABDOMEN: +BS. NT/ND. PSYCH: Cooperative. - Constitutional Vitals: Temp Pulse Resp BP Pulse Ox 97.8 F 98 H 33 H 122/57 96 08/09/21 03:59 08/09/21 06:00 08/09/21 06:00 08/09/21 06:00 08/09/21 06:00 General appearance: Present: no acute distress, well-nourished, other (Looks tired) Results - Labs CBC & Chem 7: 07/23/21 04:35 08/08/21 04:51 Labs: Laboratory Last Values WBC 10.8 K/mm3 (4.5-11.0) 07/23/21 04:35 RBC 3.84 M/mm3 (3.65-5.03) 07/23/21 04:35 Hgb 12.1 gm/dl (10.1-14.3) 07/23/21 04:35 Hct 37.6 % (30.3-42.9) 07/23/21 04:35 MCV 98 fl (79-97) H 07/23/21 04:35 MCH 32 pg (28-32) 07/23/21 04:35 MCHC 32 % (30-34) 07/23/21 04:35 RDW 16.2 % (13.2-15.2) H 07/23/21 04:35 Plt Count 367 K/mm3 (140-440) 07/23/21 04:35 Lymph % (Auto) 7.9 % (13.4-35.0) L 07/23/21 04:35 [place] % (Auto) 5.6 % (0.0-7.3) 07/23/21 04:35 Eos % (Auto) 0.8 % (0.0-4.3) 07/23/21 04:35 Baso % (Auto) 0.4 % (0.0-1.8) 07/23/21 04:35 Lymph # (Auto) 0.9 K/mm3 (1.2-5.4) L 07/23/21 04:35 [place] # (Auto) 0.6 K/mm3 (0.0-0.8) 07/23/21 04:35 Eos # (Auto) 0.1 K/mm3 (0.0-0.4) 07/23/21 04:35 Baso # (Auto) 0.0 K/mm3 (0.0-0.1) 07/23/21 04:35 Add Manual Diff Complete 07/09/21 04:45 Total Counted 100 07/09/21 04:45 Seg Neutrophils % 85.3 % (40.0-70.0) H 07/23/21 04:35 Seg Neuts % (Manual) 82.0 % (40.0-70.0) H 07/09/21 04:45 Band Neutrophils % 1.0 % 05/12/21 04:05 Lymphocytes % (Manual) 13.0 % (13.4-35.0) L 07/09/21 04:45 Monocytes % (Manual) 3.0 % (0.0-7.3) 07/09/21 04:45 Eosinophils % (Manual) 2.0 % (0.0-4.3) 07/09/21 04:45 Nucleated RBC % Not Reportable 07/09/21 04:45 Seg Neutrophils # 9.2 K/mm3 (1.8-7.7) H 07/23/21 04:35 Seg Neutrophils # Man 7.8 K/mm3 (1.8-7.7) H 07/09/21 04:45 Band Neutrophils # 0.0 K/mm3 07/09/21 04:45 Lymphocytes # (Manual) 1.2 K/mm3 (1.2-5.4) 07/09/21 04:45 Abs React Lymphs (Man) 0.0 K/mm3 07/09/21 04:45 Monocytes # (Manual) 0.3 K/mm3 (0.0-0.8) 07/09/21 04:45 Eosinophils # (Manual) 0.2 K/mm3 (0.0-0.4) 07/09/21 04:45 Basophils # (Manual) 0.0 K/mm3 (0.0-0.1) 07/09/21 04:45 Metamyelocytes # 0.0 K/mm3 07/09/21 04:45 Myelocytes # 0.0 K/mm3 07/09/21 04:45 Promyelocytes # 0.0 K/mm3 07/09/21 04:45 Blast Cells # 0.0 K/mm3 07/09/21 04:45 WBC Morphology Not Reportable 07/09/21 04:45 Hypersegmented Neuts Not Reportable 07/09/21 04:45 Hyposegmented Neuts Not Reportable 07/09/21 04:45 Hypogranular Neuts Not Reportable 07/09/21 04:45 Smudge Cells Not Reportable 07/09/21 04:45 Toxic Granulation Not Reportable 07/09/21 04:45 Toxic Vacuolation Not Reportable 07/09/21 04:45 Dohle Bodies Not Reportable 07/09/21 04:45 Pelger-Huet Anomaly Not Reportable 07/09/21 04:45 Janelle Rods Not Reportable 07/09/21 04:45 Platelet Estimate Consistent w auto 07/09/21 04:45 Clumped Platelets Not Reportable 07/09/21 04:45 Plt Clumps, EDTA Not Reportable 07/09/21 04:45 Large Platelets Not Reportable 07/09/21 04:45 Giant Platelets Rare 07/09/21 04:45 Platelet Satelliting Not Reportable 07/09/21 04:45 Plt Morphology Comment Not Reportable 07/09/21 04:45 RBC Morphology Not Reportable 07/09/21 04:45 Dimorphic RBCs Not Reportable 07/09/21 04:45 Polychromasia Not Reportable 07/09/21 04:45 Hypochromasia Few 07/09/21 04:45 Poikilocytosis Not Reportable 07/09/21 04:45 Anisocytosis Not Reportable 07/09/21 04:45 Microcytosis Not Reportable 07/09/21 04:45 Macrocytosis Not Reportable 07/09/21 04:45 Spherocytes Not Reportable 07/09/21 04:45 Pappenheimer Bodies Not Reportable 07/09/21 04:45 Sickle Cells Not Reportable 07/09/21 04:45 Target Cells Not Reportable 07/09/21 04:45 Tear Drop Cells Not Reportable 07/09/21 04:45 Ovalocytes Not Reportable 07/09/21 04:45 Stomatocytes 1+ 07/09/21 04:45 Helmet Cells Not Reportable 07/09/21 04:45 [place] Bodies Not Reportable 07/09/21 04:45 [place] Rings Not Reportable 07/09/21 04:45 [place] Cells Not Reportable 07/09/21 04:45 Bite Cells Not Reportable 07/09/21 04:45 Crenated Cell Not Reportable 07/09/21 04:45 Elliptocytes Not Reportable 07/09/21 04:45 Acanthocytes (Spur) Not Reportable 07/09/21 04:45 Rouleaux Not Reportable 07/09/21 04:45 Hemoglobin C Crystals Not Reportable 07/09/21 04:45 Schistocytes Not Reportable 07/09/21 04:45 Malaria parasites Not Reportable 07/09/21 04:45 Justin Bodies Not Reportable 07/09/21 04:45 Hem Pathologist Commnt No 07/09/21 04:45 D-Dimer 638.35 ng/mlDDU (0-234) H 07/09/21 04:45 ABG pH 7.417 (7.320-7.450) 07/23/21 18:11 POC ABG pCO2 78.3 mmHg (32.0-48.0) H 07/23/21 18:11 ABG pCO2 85.7 mm Hg 07/22/21 12:05 POC ABG pO2 80.7 mmHg (83-108) L 07/23/21 18:11 ABG pO2 66.1 mm Hg (80.0-90.0) L 07/22/21 12:05 POC ABG HCO3 49.3 07/23/21 18:11 ABG HCO3 45.0 mmol/L (20.0-26.0) H 07/22/21 12:05 ABG O2 Saturation 96.7 (0-100) 07/23/21 18:11 ABG O2 Content 16.8 (0.0-44) 07/22/21 12:05 POC ABG Base Excess 20.5 07/23/21 18:11 ABG Base Excess 15.2 mmol/L (-2.0-3.0) H 07/22/21 12:05 ABG Hemoglobin 12.6 (12.0-17.5) 07/23/21 18:11 ABG Oxyhemoglobin 95.7 (94-98) 07/23/21 18:11 ABG Carboxyhemoglobin 1.9 % (0.0-5.0) 07/22/21 12:05 ABG Methemoglobin 0.3 (0.0-1.5) 07/23/21 18:11 ABG Sodium 134.9 mmol/L (136.0-145.0) L 07/23/21 18:11 ABG Potassium 3.9 mmol/L (3.40-4.50) 07/23/21 18:11 ABG Chloride 89.0 mmol/L (98-107) L 07/23/21 18:11 ABG Glucose 200 mg/dL (65-95) H 07/23/21 18:11 Oxyhemoglobin 91.9 % (95.0-99.0) L 07/22/21 12:05 Carboxyhemoglobin 0.7 (0.5-1.5) 07/23/21 18:11 FiO2 100 % 07/22/21 12:05 FiO2 % 100.0 07/23/21 18:11 Sodium 140 mmol/L (137-145) 08/08/21 04:51 Potassium 4.1 mmol/L (3.6-5.0) 08/08/21 04:51 Chloride 92.9 mmol/L (98-107) L 08/08/21 04:51 Carbon Dioxide 39 mmol/L (22-30) H 08/08/21 04:51 Anion Gap 12 mmol/L 08/08/21 04:51 BUN 9 mg/dL (7-17) 08/08/21 04:51 Creatinine < 0.2 mg/dL (0.6-1.2) L 08/08/21 04:51 Estimated GFR > 60 ml/min 08/08/21 04:51 BUN/Creatinine Ratio 45 % 08/08/21 04:51 Glucose 105 mg/dL (65-100) H 08/08/21 04:51 POC Glucose 120 mg/dL (70-105) H 08/09/21 07:42 Hemoglobin A1c 8.5 % (4-6) H 04/18/21 07:36 Calcium 9.4 mg/dL (8.4-10.2) 08/08/21 04:51 Phosphorus 3.70 mg/dL (2.5-4.5) 07/23/21 04:35 Magnesium 2.10 mg/dL (1.7-2.3) 07/23/21 04:35 Ferritin 155.9 ng/mL (10.0-200.0) 07/09/21 04:45 Total Bilirubin < 0.20 mg/dL (0.1-1.2) 07/26/21 09:56 AST 23 units/L (5-40) 07/26/21 09:56 ALT 25 units/L (7-56) 07/26/21 09:56 Alkaline Phosphatase 69 units/L (35-129) 07/26/21 09:56 Lactate Dehydrogenase 475 units/L (91-180) H 06/05/21 05:26 C-Reactive Protein 4.30 mg/dL (0.00-1.30) H 07/09/21 04:45 NT-Pro-B Natriuret Pep 59.45 pg/mL (0-450) 07/07/21 13:40 Total Protein 8.1 g/dL (6.3-8.2) 07/26/21 09:56 Albumin 3.2 g/dL (3.9-5) L 07/26/21 09:56 Albumin/Globulin Ratio 0.7 % 07/26/21 09:56 Triglycerides < 9 mg/dL (2-149) 05/03/21 04:30 Procalcitonin < 0.05 ng/mL (<0.15) 05/23/21 09:50 Arterial Blood Glucose 200 mg/dL (65-95) H 07/23/21 18:11 Arterial Blood Ionized Calcium 4.6 mg/dL (4.6-5.3) 07/23/21 18:11 Coronavirus (PCR) Negative (Negative) 07/25/21 Unknown Amos/IV: Voiding Method External Female Catheter Active Medications - Current Medications Current Medications: Generic Name Dose Route Start Last Admin Trade Name Freq PRN Reason Stop Dose Admin Acetaminophen 650 mg 07/02/21 17:48 08/08/21 21:47 Acetaminophen 325 Mg Tab PO 650 mg Q4H PRN Administration Pain, Mild (1-3) Albuterol 2.5 mg 04/16/21 13:39 04/21/21 20:39 Albuterol 2.5 Mg/3 Ml Nebu IH 2.5 mg Q4HRT PRN Administration Shortness Of Breath Alprazolam 2 mg 07/29/21 22:00 08/08/21 21:45 Alprazolam 1 Mg Tab PO 2 mg BID TUTU Administration Calcium Carbonate/Glycine 500 mg 07/24/21 10:43 Calcium Carbonate 500 Mg Tab Chew PO BID PRN reflux Cholecalciferol 1,000 unit 04/17/21 10:00 08/08/21 10:04 Cholecalciferol (Vit D3) 1000 Unit (25 Mcg) Tab PO 1,000 unit QDAY TUTU Administration Enoxaparin Sodium 40 mg 05/19/21 22:00 08/08/21 21:46 Enoxaparin 40 Mg/0.4 Ml Inj SUB-Q 40 mg QDAY@2200 TUTU Administration Protocol Ibuprofen 600 mg 07/11/21 11:00 07/26/21 11:10 Ibuprofen 600 Mg Tab PO 600 mg Q6H PRN Administration Ear Pain Insulin Glargine 5 units 07/25/21 10:00 08/08/21 10:04 Insulin Glargine 100 Units/Ml SUB-Q 5 units DAILY TUTU Administration Insulin Human Lispro 0 unit 05/18/21 12:00 08/08/21 21:36 Insulin Lispro 100 Unit/Ml SUB-Q Not Given [facility] Protocol Ondansetron HCl 4 mg 04/16/21 14:00 05/30/21 10:07 Ondansetron 4 Mg/2 Ml Inj IV 4 mg Q8H PRN Administration Nausea And Vomiting Polyethylene Glycol 17 gm 07/16/21 20:00 Polyethylene Glycol 3350 17 Gm Powder PO QDAY PRN Constipation Sodium Chloride 10 ml 04/16/21 13:39 07/27/21 10:47 Sodium Chloride 0.9% 10 Ml Flush Syringe IV 10 ml PRN PRN Administration LINE FLUSH Zinc Sulfate 220 mg 04/16/21 22:00 08/08/21 21:45 Zinc Sulfate 220 Mg Cap PO 220 mg BID TUTU Administration Nutrition/Malnutrition Assess - Dietary Evaluation Nutrition/Malnutrition Findings: Nutrition Notes Start: 04/23/21 07:41 Freq: Status: Active Protocol: Document 08/07/21 11:38 TITUS (Rec: 08/07/21 11:43 TITUS [id number]) Nutrition Notes Initial or Follow up Reassessment Current Diagnosis Diabetes,Heart Failure, Respiratory Failure Other Pertinent Diagnosis COVID-19 (+), Anxiety Current Diet consistent carbohydrate Labs/Tests POC Glu range for past 7 days: 102-244 Pertinent Medications Xanax Height 4 ft 11.84 in Weight 60.3 kg [place] Body Weight (kg) 45.09 BMI 26.1 Weight Status Overweight Subjective/Other Information Pt placed on BiPap support this am sec to increased work of breathing; she often refuses BiPap at night. She has consumed 86% of meals since 08/04. Percent of energy/protein needs met: 100% energy and pro Burn Absent Trauma Absent Current % PO Good (75-100%) Minimum of two criteria No #3 Nutrition Diagnosis No nutrition diagnosis at this time Diagnosis Progress(for reassessment Continues documentation) Is patient on ventilator? No Is Patient Ambulatory and/or Out of Bed No REE-([facility]-confined to bed) [phone] Calculation Used for Recommendations [place] Additional Notes Pro needs 0.8-1g/k-60g/ day Fluid needs 1ml/kcal Nutrition Intervention Revisit per MD consult or patient Sign Off request:
[2021-08-09] MEDS: INSULIN GLARGINE 100 UNITS/ML SUB-Q SCH (09:58)
[2021-08-09] MEDS: ZINC SULFATE 220 MG CAP PO SCH ×2 (09:59→22:02)
[2021-08-09] MEDS: CHOLECALCIFEROL (VIT D3) 1000 UNIT (25 mcg) TAB PO SCH (09:59)
[2021-08-09] MEDS: ALPRAZolam 1 MG TAB PO SCH ×2 (10:00→22:02)
[2021-08-09] MEDS: ACETAMINOPHEN 325 MG TAB PO PRN (22:02)
[2021-08-09] MEDS: ENOXAPARIN 40 MG/0.4 ML INJ SUB-Q SCH (22:02)
--- NOTE | 2021-08-10 08:34 | Progress Note ---
Assessment and Plan Assessment and plan: #Acute hypoxic/hypercapneic respiratory failure #Severe ARDS -stable -refusing BiPAP, currently on HFNC 35/75 -plan to maintain SpO2 >88%, HFNC during the day and BiPAP at night and PRN -s/p prednisone taper -encouraged patient to prone herself when she is awake #Metabolic alkalosis -stable -Patient received multiple doses of Lasix over course of hospital stay but may be 2/2 to compensation for hypercapnea #Heart failure with preserved ejection fraction -TTE: LVEF 55-60% with diastolic dysfunction -will continue to monitor for signs of fluid overload #COVID-19 infection -Continue Covid vitamins #Type 2 diabetes -continue Lantus 5 units daily and sliding scale insulin #Anxiety -Stable -continue xanax #DVT prophylaxis -Lovenox 40 daily #Deconditioning -Will benefit from SNF after prolonged hospital stay Resolved issues #Sepsis secondary to COVID-19 #Iatrogenic diarrhea #Hypomagnesemia #Hyponatremia #Protein calorie malnutrition #Dysuria #Hypokalemia #Possible UTI Disposition Plan: continue medical management Total Time Spent with Patient (Minutes): 20 minutes History Interval history: No acute events overnight. On HFNC. Patient still refusing to use BiPAP. Hospitalist Physical - Physical exam Narrative exam: GENERAL: Well-developed well-nourished. Lying in bed in no acute distress. HEENT: HFNC in place. CHEST/LUNGS: Coarse breath sounds bilaterally. HEART/CARDIOVASCULAR: RRR. No murmur, rubs or gallops appreciated. ABDOMEN: +BS. NT/ND. PSYCH: Cooperative. - Constitutional Vitals: Temp Pulse Resp BP Pulse Ox 98.2 F 92 H 29 H 125/71 97 08/10/21 08:00 08/10/21 06:00 08/10/21 06:00 08/10/21 06:00 08/10/21 06:00 General appearance: Present: no acute distress, well-nourished, other (Looks tired) Results - Labs CBC & Chem 7: 07/23/21 04:35 08/08/21 04:51 Labs: Laboratory Last Values WBC 10.8 K/mm3 (4.5-11.0) 07/23/21 04:35 RBC 3.84 M/mm3 (3.65-5.03) 07/23/21 04:35 Hgb 12.1 gm/dl (10.1-14.3) 07/23/21 04:35 Hct 37.6 % (30.3-42.9) 07/23/21 04:35 MCV 98 fl (79-97) H 07/23/21 04:35 MCH 32 pg (28-32) 07/23/21 04:35 MCHC 32 % (30-34) 07/23/21 04:35 RDW 16.2 % (13.2-15.2) H 07/23/21 04:35 Plt Count 367 K/mm3 (140-440) 07/23/21 04:35 Lymph % (Auto) 7.9 % (13.4-35.0) L 07/23/21 04:35 [place] % (Auto) 5.6 % (0.0-7.3) 07/23/21 04:35 Eos % (Auto) 0.8 % (0.0-4.3) 07/23/21 04:35 Baso % (Auto) 0.4 % (0.0-1.8) 07/23/21 04:35 Lymph # (Auto) 0.9 K/mm3 (1.2-5.4) L 07/23/21 04:35 [place] # (Auto) 0.6 K/mm3 (0.0-0.8) 07/23/21 04:35 Eos # (Auto) 0.1 K/mm3 (0.0-0.4) 07/23/21 04:35 Baso # (Auto) 0.0 K/mm3 (0.0-0.1) 07/23/21 04:35 Add Manual Diff Complete 07/09/21 04:45 Total Counted 100 07/09/21 04:45 Seg Neutrophils % 85.3 % (40.0-70.0) H 07/23/21 04:35 Seg Neuts % (Manual) 82.0 % (40.0-70.0) H 07/09/21 04:45 Band Neutrophils % 1.0 % 05/12/21 04:05 Lymphocytes % (Manual) 13.0 % (13.4-35.0) L 07/09/21 04:45 Monocytes % (Manual) 3.0 % (0.0-7.3) 07/09/21 04:45 Eosinophils % (Manual) 2.0 % (0.0-4.3) 07/09/21 04:45 Nucleated RBC % Not Reportable 07/09/21 04:45 Seg Neutrophils # 9.2 K/mm3 (1.8-7.7) H 07/23/21 04:35 Seg Neutrophils # Man 7.8 K/mm3 (1.8-7.7) H 07/09/21 04:45 Band Neutrophils # 0.0 K/mm3 07/09/21 04:45 Lymphocytes # (Manual) 1.2 K/mm3 (1.2-5.4) 07/09/21 04:45 Abs React Lymphs (Man) 0.0 K/mm3 07/09/21 04:45 Monocytes # (Manual) 0.3 K/mm3 (0.0-0.8) 07/09/21 04:45 Eosinophils # (Manual) 0.2 K/mm3 (0.0-0.4) 07/09/21 04:45 Basophils # (Manual) 0.0 K/mm3 (0.0-0.1) 07/09/21 04:45 Metamyelocytes # 0.0 K/mm3 07/09/21 04:45 Myelocytes # 0.0 K/mm3 07/09/21 04:45 Promyelocytes # 0.0 K/mm3 07/09/21 04:45 Blast Cells # 0.0 K/mm3 07/09/21 04:45 WBC Morphology Not Reportable 07/09/21 04:45 Hypersegmented Neuts Not Reportable 07/09/21 04:45 Hyposegmented Neuts Not Reportable 07/09/21 04:45 Hypogranular Neuts Not Reportable 07/09/21 04:45 Smudge Cells Not Reportable 07/09/21 04:45 Toxic Granulation Not Reportable 07/09/21 04:45 Toxic Vacuolation Not Reportable 07/09/21 04:45 Dohle Bodies Not Reportable 07/09/21 04:45 Pelger-Huet Anomaly Not Reportable 07/09/21 04:45 Janelle Rods Not Reportable 07/09/21 04:45 Platelet Estimate Consistent w auto 07/09/21 04:45 Clumped Platelets Not Reportable 07/09/21 04:45 Plt Clumps, EDTA Not Reportable 07/09/21 04:45 Large Platelets Not Reportable 07/09/21 04:45 Giant Platelets Rare 07/09/21 04:45 Platelet Satelliting Not Reportable 07/09/21 04:45 Plt Morphology Comment Not Reportable 07/09/21 04:45 RBC Morphology Not Reportable 07/09/21 04:45 Dimorphic RBCs Not Reportable 07/09/21 04:45 Polychromasia Not Reportable 07/09/21 04:45 Hypochromasia Few 07/09/21 04:45 Poikilocytosis Not Reportable 07/09/21 04:45 Anisocytosis Not Reportable 07/09/21 04:45 Microcytosis Not Reportable 07/09/21 04:45 Macrocytosis Not Reportable 07/09/21 04:45 Spherocytes Not Reportable 07/09/21 04:45 Pappenheimer Bodies Not Reportable 07/09/21 04:45 Sickle Cells Not Reportable 07/09/21 04:45 Target Cells Not Reportable 07/09/21 04:45 Tear Drop Cells Not Reportable 07/09/21 04:45 Ovalocytes Not Reportable 07/09/21 04:45 Stomatocytes 1+ 07/09/21 04:45 Helmet Cells Not Reportable 07/09/21 04:45 [place] Bodies Not Reportable 07/09/21 04:45 [place] Rings Not Reportable 07/09/21 04:45 [place] Cells Not Reportable 07/09/21 04:45 Bite Cells Not Reportable 07/09/21 04:45 Crenated Cell Not Reportable 07/09/21 04:45 Elliptocytes Not Reportable 07/09/21 04:45 Acanthocytes (Spur) Not Reportable 07/09/21 04:45 Rouleaux Not Reportable 07/09/21 04:45 Hemoglobin C Crystals Not Reportable 07/09/21 04:45 Schistocytes Not Reportable 07/09/21 04:45 Malaria parasites Not Reportable 07/09/21 04:45 Justin Bodies Not Reportable 07/09/21 04:45 Hem Pathologist Commnt No 07/09/21 04:45 D-Dimer 638.35 ng/mlDDU (0-234) H 07/09/21 04:45 ABG pH 7.417 (7.320-7.450) 07/23/21 18:11 POC ABG pCO2 78.3 mmHg (32.0-48.0) H 07/23/21 18:11 ABG pCO2 85.7 mm Hg 07/22/21 12:05 POC ABG pO2 80.7 mmHg (83-108) L 07/23/21 18:11 ABG pO2 66.1 mm Hg (80.0-90.0) L 07/22/21 12:05 POC ABG HCO3 49.3 07/23/21 18:11 ABG HCO3 45.0 mmol/L (20.0-26.0) H 07/22/21 12:05 ABG O2 Saturation 96.7 (0-100) 07/23/21 18:11 ABG O2 Content 16.8 (0.0-44) 07/22/21 12:05 POC ABG Base Excess 20.5 07/23/21 18:11 ABG Base Excess 15.2 mmol/L (-2.0-3.0) H 07/22/21 12:05 ABG Hemoglobin 12.6 (12.0-17.5) 07/23/21 18:11 ABG Oxyhemoglobin 95.7 (94-98) 07/23/21 18:11 ABG Carboxyhemoglobin 1.9 % (0.0-5.0) 07/22/21 12:05 ABG Methemoglobin 0.3 (0.0-1.5) 07/23/21 18:11 ABG Sodium 134.9 mmol/L (136.0-145.0) L 07/23/21 18:11 ABG Potassium 3.9 mmol/L (3.40-4.50) 07/23/21 18:11 ABG Chloride 89.0 mmol/L (98-107) L 07/23/21 18:11 ABG Glucose 200 mg/dL (65-95) H 07/23/21 18:11 Oxyhemoglobin 91.9 % (95.0-99.0) L 07/22/21 12:05 Carboxyhemoglobin 0.7 (0.5-1.5) 07/23/21 18:11 FiO2 100 % 07/22/21 12:05 FiO2 % 100.0 07/23/21 18:11 Sodium 140 mmol/L (137-145) 08/08/21 04:51 Potassium 4.1 mmol/L (3.6-5.0) 08/08/21 04:51 Chloride 92.9 mmol/L (98-107) L 08/08/21 04:51 Carbon Dioxide 39 mmol/L (22-30) H 08/08/21 04:51 Anion Gap 12 mmol/L 08/08/21 04:51 BUN 9 mg/dL (7-17) 08/08/21 04:51 Creatinine < 0.2 mg/dL (0.6-1.2) L 08/08/21 04:51 Estimated GFR > 60 ml/min 08/08/21 04:51 BUN/Creatinine Ratio 45 % 08/08/21 04:51 Glucose 105 mg/dL (65-100) H 08/08/21 04:51 POC Glucose 125 mg/dL (70-105) H 08/10/21 07:41 Hemoglobin A1c 8.5 % (4-6) H 04/18/21 07:36 Calcium 9.4 mg/dL (8.4-10.2) 08/08/21 04:51 Phosphorus 3.70 mg/dL (2.5-4.5) 07/23/21 04:35 Magnesium 2.10 mg/dL (1.7-2.3) 07/23/21 04:35 Ferritin 155.9 ng/mL (10.0-200.0) 07/09/21 04:45 Total Bilirubin < 0.20 mg/dL (0.1-1.2) 07/26/21 09:56 AST 23 units/L (5-40) 07/26/21 09:56 ALT 25 units/L (7-56) 07/26/21 09:56 Alkaline Phosphatase 69 units/L (35-129) 07/26/21 09:56 Lactate Dehydrogenase 475 units/L (91-180) H 06/05/21 05:26 C-Reactive Protein 4.30 mg/dL (0.00-1.30) H 07/09/21 04:45 NT-Pro-B Natriuret Pep 59.45 pg/mL (0-450) 07/07/21 13:40 Total Protein 8.1 g/dL (6.3-8.2) 07/26/21 09:56 Albumin 3.2 g/dL (3.9-5) L 07/26/21 09:56 Albumin/Globulin Ratio 0.7 % 07/26/21 09:56 Triglycerides < 9 mg/dL (2-149) 05/03/21 04:30 Procalcitonin < 0.05 ng/mL (<0.15) 05/23/21 09:50 Arterial Blood Glucose 200 mg/dL (65-95) H 07/23/21 18:11 Arterial Blood Ionized Calcium 4.6 mg/dL (4.6-5.3) 07/23/21 18:11 Coronavirus (PCR) Negative (Negative) 07/25/21 Unknown Amos/IV: Voiding Method External Female Catheter Active Medications - Current Medications Current Medications: Generic Name Dose Route Start Last Admin Trade Name Freq PRN Reason Stop Dose Admin Acetaminophen 650 mg 07/02/21 17:48 08/09/21 22:02 Acetaminophen 325 Mg Tab PO 650 mg Q4H PRN Administration Pain, Mild (1-3) Albuterol 2.5 mg 04/16/21 13:39 04/21/21 20:39 Albuterol 2.5 Mg/3 Ml Nebu IH 2.5 mg Q4HRT PRN Administration Shortness Of Breath Alprazolam 2 mg 07/29/21 22:00 08/09/21 22:02 Alprazolam 1 Mg Tab PO 2 mg BID TUTU Administration Calcium Carbonate/Glycine 500 mg 07/24/21 10:43 Calcium Carbonate 500 Mg Tab Chew PO BID PRN reflux Cholecalciferol 1,000 unit 04/17/21 10:00 08/09/21 09:59 Cholecalciferol (Vit D3) 1000 Unit (25 Mcg) Tab PO 1,000 unit QDAY TUTU Administration Enoxaparin Sodium 40 mg 05/19/21 22:00 08/09/21 22:02 Enoxaparin 40 Mg/0.4 Ml Inj SUB-Q 40 mg QDAY@2200 TUTU Administration Protocol Insulin Glargine 5 units 07/25/21 10:00 08/09/21 09:58 Insulin Glargine 100 Units/Ml SUB-Q 5 units DAILY TUTU Administration Insulin Human Lispro 0 unit 05/18/21 12:00 08/09/21 22:03 Insulin Lispro 100 Unit/Ml SUB-Q 4 unit ACHS TUTU Administration Protocol Ondansetron HCl 4 mg 04/16/21 14:00 05/30/21 10:07 Ondansetron 4 Mg/2 Ml Inj IV 4 mg Q8H PRN Administration Nausea And Vomiting Polyethylene Glycol 17 gm 07/16/21 20:00 Polyethylene Glycol 3350 17 Gm Powder PO QDAY PRN Constipation Sodium Chloride 10 ml 04/16/21 13:39 08/09/21 10:00 Sodium Chloride 0.9% 10 Ml Flush Syringe IV 10 ml PRN PRN Administration LINE FLUSH Zinc Sulfate 220 mg 04/16/21 22:00 08/09/21 22:02 Zinc Sulfate 220 Mg Cap PO 220 mg BID TUTU Administration Nutrition/Malnutrition Assess - Dietary Evaluation Nutrition/Malnutrition Findings: Nutrition Notes Start: 04/23/21 07:41 Freq: Status: Active Protocol: Document 08/09/21 17:26 SAQIB (Rec: 08/09/21 17:30 SAQIB [id number]) Nutrition Notes Initial or Follow up Brief Note Subjective/Other Information RD brief note to set next F/U on 09/12 Nutrition Intervention Follow-Up By: 09/12/21 Additional Comments Continue monitoring food tolerance, %PO intake of meals , Hydration, and BM.
[2021-08-10] MEDS: ALPRAZolam 1 MG TAB PO SCH ×2 (10:45→21:39)
[2021-08-10] MEDS: INSULIN LISPRO 100 UNIT/ML SUB-Q SCH ×3 (10:45→21:40)
[2021-08-10] MEDS: INSULIN GLARGINE 100 UNITS/ML SUB-Q SCH (10:46)
[2021-08-10] MEDS: CHOLECALCIFEROL (VIT D3) 1000 UNIT (25 mcg) TAB PO SCH (10:46)
[2021-08-10] MEDS: ZINC SULFATE 220 MG CAP PO SCH ×2 (10:46→21:39)
[2021-08-10] MEDS: ENOXAPARIN 40 MG/0.4 ML INJ SUB-Q SCH (21:40)
[2021-08-10] MEDS: POLYETHYLENE GLYCOL 3350 17 GM POWDER PO PRN (21:58)
--- NOTE | 2021-08-11 07:54 | Progress Note ---
Assessment and Plan Assessment and plan: #Acute hypoxic/hypercapneic respiratory failure #Severe ARDS -stable -refusing BiPAP, currently on HFNC 35/70 -plan to maintain SpO2 >88%, HFNC during the day and BiPAP at night and PRN -s/p prednisone taper -encouraged patient to prone herself when she is awake #Metabolic alkalosis -stable -Patient received multiple doses of Lasix over course of hospital stay but may be 2/2 to compensation for hypercapnea #Heart failure with preserved ejection fraction -TTE: LVEF 55-60% with diastolic dysfunction -will continue to monitor for signs of fluid overload #COVID-19 infection -Continue Covid vitamins #Type 2 diabetes -continue Lantus 5 units daily and sliding scale insulin #Anxiety -Stable -continue xanax #DVT prophylaxis -Lovenox 40 daily #Deconditioning -Will benefit from SNF after prolonged hospital stay Resolved issues #Sepsis secondary to COVID-19 #Iatrogenic diarrhea #Hypomagnesemia #Hyponatremia #Protein calorie malnutrition #Dysuria #Hypokalemia #Possible UTI Disposition Plan: continue medical management Total Time Spent with Patient (Minutes): 10 minutes History Interval history: No acute events overnight. On HFNC. Patient still refusing to use BiPAP and proning. No complaints at this time. Hospitalist Physical - Physical exam Narrative exam: GENERAL: Well-developed well-nourished. Lying in bed in no acute distress. HEENT: HFNC in place. CHEST/LUNGS: Coarse breath sounds bilaterally. HEART/CARDIOVASCULAR: RRR. No murmur, rubs or gallops appreciated. ABDOMEN: +BS. NT/ND. PSYCH: Cooperative. - Constitutional Vitals: Temp Pulse Resp BP Pulse Ox 97.7 F 95 H 35 H 137/77 95 08/11/21 07:37 08/11/21 06:00 08/11/21 06:00 08/11/21 06:00 08/11/21 06:00 General appearance: Present: no acute distress, well-nourished, other (Looks tired) Results - Labs CBC & Chem 7: 07/23/21 04:35 08/08/21 04:51 Labs: Laboratory Last Values WBC 10.8 K/mm3 (4.5-11.0) 07/23/21 04:35 RBC 3.84 M/mm3 (3.65-5.03) 07/23/21 04:35 Hgb 12.1 gm/dl (10.1-14.3) 07/23/21 04:35 Hct 37.6 % (30.3-42.9) 07/23/21 04:35 MCV 98 fl (79-97) H 07/23/21 04:35 MCH 32 pg (28-32) 07/23/21 04:35 MCHC 32 % (30-34) 07/23/21 04:35 RDW 16.2 % (13.2-15.2) H 07/23/21 04:35 Plt Count 367 K/mm3 (140-440) 07/23/21 04:35 Lymph % (Auto) 7.9 % (13.4-35.0) L 07/23/21 04:35 [place] % (Auto) 5.6 % (0.0-7.3) 07/23/21 04:35 Eos % (Auto) 0.8 % (0.0-4.3) 07/23/21 04:35 Baso % (Auto) 0.4 % (0.0-1.8) 07/23/21 04:35 Lymph # (Auto) 0.9 K/mm3 (1.2-5.4) L 07/23/21 04:35 [place] # (Auto) 0.6 K/mm3 (0.0-0.8) 07/23/21 04:35 Eos # (Auto) 0.1 K/mm3 (0.0-0.4) 07/23/21 04:35 Baso # (Auto) 0.0 K/mm3 (0.0-0.1) 07/23/21 04:35 Add Manual Diff Complete 07/09/21 04:45 Total Counted 100 07/09/21 04:45 Seg Neutrophils % 85.3 % (40.0-70.0) H 07/23/21 04:35 Seg Neuts % (Manual) 82.0 % (40.0-70.0) H 07/09/21 04:45 Band Neutrophils % 1.0 % 05/12/21 04:05 Lymphocytes % (Manual) 13.0 % (13.4-35.0) L 07/09/21 04:45 Monocytes % (Manual) 3.0 % (0.0-7.3) 07/09/21 04:45 Eosinophils % (Manual) 2.0 % (0.0-4.3) 07/09/21 04:45 Nucleated RBC % Not Reportable 07/09/21 04:45 Seg Neutrophils # 9.2 K/mm3 (1.8-7.7) H 07/23/21 04:35 Seg Neutrophils # Man 7.8 K/mm3 (1.8-7.7) H 07/09/21 04:45 Band Neutrophils # 0.0 K/mm3 07/09/21 04:45 Lymphocytes # (Manual) 1.2 K/mm3 (1.2-5.4) 07/09/21 04:45 Abs React Lymphs (Man) 0.0 K/mm3 07/09/21 04:45 Monocytes # (Manual) 0.3 K/mm3 (0.0-0.8) 07/09/21 04:45 Eosinophils # (Manual) 0.2 K/mm3 (0.0-0.4) 07/09/21 04:45 Basophils # (Manual) 0.0 K/mm3 (0.0-0.1) 07/09/21 04:45 Metamyelocytes # 0.0 K/mm3 07/09/21 04:45 Myelocytes # 0.0 K/mm3 07/09/21 04:45 Promyelocytes # 0.0 K/mm3 07/09/21 04:45 Blast Cells # 0.0 K/mm3 07/09/21 04:45 WBC Morphology Not Reportable 07/09/21 04:45 Hypersegmented Neuts Not Reportable 07/09/21 04:45 Hyposegmented Neuts Not Reportable 07/09/21 04:45 Hypogranular Neuts Not Reportable 07/09/21 04:45 Smudge Cells Not Reportable 07/09/21 04:45 Toxic Granulation Not Reportable 07/09/21 04:45 Toxic Vacuolation Not Reportable 07/09/21 04:45 Dohle Bodies Not Reportable 07/09/21 04:45 Pelger-Huet Anomaly Not Reportable 07/09/21 04:45 Janelle Rods Not Reportable 07/09/21 04:45 Platelet Estimate Consistent w auto 07/09/21 04:45 Clumped Platelets Not Reportable 07/09/21 04:45 Plt Clumps, EDTA Not Reportable 07/09/21 04:45 Large Platelets Not Reportable 07/09/21 04:45 Giant Platelets Rare 07/09/21 04:45 Platelet Satelliting Not Reportable 07/09/21 04:45 Plt Morphology Comment Not Reportable 07/09/21 04:45 RBC Morphology Not Reportable 07/09/21 04:45 Dimorphic RBCs Not Reportable 07/09/21 04:45 Polychromasia Not Reportable 07/09/21 04:45 Hypochromasia Few 07/09/21 04:45 Poikilocytosis Not Reportable 07/09/21 04:45 Anisocytosis Not Reportable 07/09/21 04:45 Microcytosis Not Reportable 07/09/21 04:45 Macrocytosis Not Reportable 07/09/21 04:45 Spherocytes Not Reportable 07/09/21 04:45 Pappenheimer Bodies Not Reportable 07/09/21 04:45 Sickle Cells Not Reportable 07/09/21 04:45 Target Cells Not Reportable 07/09/21 04:45 Tear Drop Cells Not Reportable 07/09/21 04:45 Ovalocytes Not Reportable 07/09/21 04:45 Stomatocytes 1+ 07/09/21 04:45 Helmet Cells Not Reportable 07/09/21 04:45 Ahuja-Shevlin Bodies Not Reportable 07/09/21 04:45 [place] Rings Not Reportable 07/09/21 04:45 Crow Cells Not Reportable 07/09/21 04:45 Bite Cells Not Reportable 07/09/21 04:45 Crenated Cell Not Reportable 07/09/21 04:45 Elliptocytes Not Reportable 07/09/21 04:45 Acanthocytes (Spur) Not Reportable 07/09/21 04:45 Rouleaux Not Reportable 07/09/21 04:45 Hemoglobin C Crystals Not Reportable 07/09/21 04:45 Schistocytes Not Reportable 07/09/21 04:45 Malaria parasites Not Reportable 07/09/21 04:45 Justin Bodies Not Reportable 07/09/21 04:45 Hem Pathologist Commnt No 07/09/21 04:45 D-Dimer 638.35 ng/mlDDU (0-234) H 07/09/21 04:45 ABG pH 7.417 (7.320-7.450) 07/23/21 18:11 POC ABG pCO2 78.3 mmHg (32.0-48.0) H 07/23/21 18:11 ABG pCO2 85.7 mm Hg 07/22/21 12:05 POC ABG pO2 80.7 mmHg (83-108) L 07/23/21 18:11 ABG pO2 66.1 mm Hg (80.0-90.0) L 07/22/21 12:05 POC ABG HCO3 49.3 07/23/21 18:11 ABG HCO3 45.0 mmol/L (20.0-26.0) H 07/22/21 12:05 ABG O2 Saturation 96.7 (0-100) 07/23/21 18:11 ABG O2 Content 16.8 (0.0-44) 07/22/21 12:05 POC ABG Base Excess 20.5 07/23/21 18:11 ABG Base Excess 15.2 mmol/L (-2.0-3.0) H 07/22/21 12:05 ABG Hemoglobin 12.6 (12.0-17.5) 07/23/21 18:11 ABG Oxyhemoglobin 95.7 (94-98) 07/23/21 18:11 ABG Carboxyhemoglobin 1.9 % (0.0-5.0) 07/22/21 12:05 ABG Methemoglobin 0.3 (0.0-1.5) 07/23/21 18:11 ABG Sodium 134.9 mmol/L (136.0-145.0) L 07/23/21 18:11 ABG Potassium 3.9 mmol/L (3.40-4.50) 07/23/21 18:11 ABG Chloride 89.0 mmol/L (98-107) L 07/23/21 18:11 ABG Glucose 200 mg/dL (65-95) H 07/23/21 18:11 Oxyhemoglobin 91.9 % (95.0-99.0) L 07/22/21 12:05 Carboxyhemoglobin 0.7 (0.5-1.5) 07/23/21 18:11 FiO2 100 % 07/22/21 12:05 FiO2 % 100.0 07/23/21 18:11 Sodium 140 mmol/L (137-145) 08/08/21 04:51 Potassium 4.1 mmol/L (3.6-5.0) 08/08/21 04:51 Chloride 92.9 mmol/L (98-107) L 08/08/21 04:51 Carbon Dioxide 39 mmol/L (22-30) H 08/08/21 04:51 Anion Gap 12 mmol/L 08/08/21 04:51 BUN 9 mg/dL (7-17) 08/08/21 04:51 Creatinine < 0.2 mg/dL (0.6-1.2) L 08/08/21 04:51 Estimated GFR > 60 ml/min 08/08/21 04:51 BUN/Creatinine Ratio 45 % 08/08/21 04:51 Glucose 105 mg/dL (65-100) H 08/08/21 04:51 POC Glucose 123 mg/dL (70-105) H 08/11/21 07:22 Hemoglobin A1c 8.5 % (4-6) H 04/18/21 07:36 Calcium 9.4 mg/dL (8.4-10.2) 08/08/21 04:51 Phosphorus 3.70 mg/dL (2.5-4.5) 07/23/21 04:35 Magnesium 2.10 mg/dL (1.7-2.3) 07/23/21 04:35 Ferritin 155.9 ng/mL (10.0-200.0) 07/09/21 04:45 Total Bilirubin < 0.20 mg/dL (0.1-1.2) 07/26/21 09:56 AST 23 units/L (5-40) 07/26/21 09:56 ALT 25 units/L (7-56) 07/26/21 09:56 Alkaline Phosphatase 69 units/L (35-129) 07/26/21 09:56 Lactate Dehydrogenase 475 units/L (91-180) H 06/05/21 05:26 C-Reactive Protein 4.30 mg/dL (0.00-1.30) H 07/09/21 04:45 NT-Pro-B Natriuret Pep 59.45 pg/mL (0-450) 07/07/21 13:40 Total Protein 8.1 g/dL (6.3-8.2) 07/26/21 09:56 Albumin 3.2 g/dL (3.9-5) L 07/26/21 09:56 Albumin/Globulin Ratio 0.7 % 07/26/21 09:56 Triglycerides < 9 mg/dL (2-149) 05/03/21 04:30 Procalcitonin < 0.05 ng/mL (<0.15) 05/23/21 09:50 Arterial Blood Glucose 200 mg/dL (65-95) H 07/23/21 18:11 Arterial Blood Ionized Calcium 4.6 mg/dL (4.6-5.3) 07/23/21 18:11 Coronavirus (PCR) Negative (Negative) 07/25/21 Unknown Amos/IV: Voiding Method External Female Catheter Active Medications - Current Medications Current Medications: Generic Name Dose Route Start Last Admin Trade Name Freq PRN Reason Stop Dose Admin Acetaminophen 650 mg 07/02/21 17:48 08/09/21 22:02 Acetaminophen 325 Mg Tab PO 650 mg Q4H PRN Administration Pain, Mild (1-3) Albuterol 2.5 mg 04/16/21 13:39 04/21/21 20:39 Albuterol 2.5 Mg/3 Ml Nebu IH 2.5 mg Q4HRT PRN Administration Shortness Of Breath Alprazolam 2 mg 07/29/21 22:00 08/10/21 21:39 Alprazolam 1 Mg Tab PO 2 mg BID TUTU Administration Calcium Carbonate/Glycine 500 mg 07/24/21 10:43 Calcium Carbonate 500 Mg Tab Chew PO BID PRN reflux Cholecalciferol 1,000 unit 04/17/21 10:00 08/10/21 10:46 Cholecalciferol (Vit D3) 1000 Unit (25 Mcg) Tab PO 1,000 unit QDAY TUTU Administration Enoxaparin Sodium 40 mg 05/19/21 22:00 08/10/21 21:40 Enoxaparin 40 Mg/0.4 Ml Inj SUB-Q 40 mg QDAY@2200 TUTU Administration Protocol Insulin Glargine 5 units 07/25/21 10:00 08/10/21 10:46 Insulin Glargine 100 Units/Ml SUB-Q 5 units DAILY TUTU Administration Insulin Human Lispro 0 unit 05/18/21 12:00 08/10/21 21:40 Insulin Lispro 100 Unit/Ml SUB-Q 3 unit ACHS TUTU Administration Protocol Ondansetron HCl 4 mg 04/16/21 14:00 05/30/21 10:07 Ondansetron 4 Mg/2 Ml Inj IV 4 mg Q8H PRN Administration Nausea And Vomiting Polyethylene Glycol 17 gm 07/16/21 20:00 08/10/21 21:58 Polyethylene Glycol 3350 17 Gm Powder PO 17 gm QDAY PRN Administration Constipation Sodium Chloride 10 ml 04/16/21 13:39 08/09/21 10:00 Sodium Chloride 0.9% 10 Ml Flush Syringe IV 10 ml PRN PRN Administration LINE FLUSH Zinc Sulfate 220 mg 04/16/21 22:00 08/10/21 21:39 Zinc Sulfate 220 Mg Cap PO 220 mg BID TUTU Administration Nutrition/Malnutrition Assess - Dietary Evaluation Nutrition/Malnutrition Findings: Nutrition Notes Start: 04/23/21 07:41 Freq: Status: Active Protocol: Document 08/09/21 17:26 SAQIB (Rec: 08/09/21 17:30 SAQIB [id number]) Nutrition Notes Initial or Follow up Brief Note Subjective/Other Information RD brief note to set next F/U on 09/12 Nutrition Intervention Follow-Up By: 09/12/21 Additional Comments Continue monitoring food tolerance, %PO intake of meals , Hydration, and BM.
[2021-08-11] MEDS: INSULIN LISPRO 100 UNIT/ML SUB-Q SCH ×5 (08:22→22:51)
--- NOTE | 2021-08-11 09:57 | Progress Note ---
Assessment and Plan - Patient Problems (1) Pneumonia due to SARS-associated coronavirus Current Visit: Yes Status: Acute (2) Acute hypoxemic respiratory failure Current Visit: Yes Status: Acute (3) Obesity hypoventilation syndrome Current Visit: Yes Status: Acute (4) Pneumonia Current Visit: Yes Status: Acute Qualifiers: Aspiration pneumonia type: unspecified Laterality: unspecified laterality Lung location: unspecified part of lung (5) Transaminitis Current Visit: No Status: Resolved (6) Oral thrush Current Visit: Yes Status: Resolved (7) Volume overload Current Visit: Yes Status: Acute (8) Severe muscle deconditioning Current Visit: Yes Status: Acute Subjective Principal diagnosis: Covid-19 Interval history: on o2 hiflo. more awake today Objective Vital Signs - 12hr 08/10/21 08/10/21 08/10/21 22:00 22:01 23:00 Temperature Pulse Rate 102 H 97 H Pulse Rate [ 102 H From Monitor] Respiratory 42 H 42 H 31 H Rate Blood Pressure 123/69 123/37 O2 Sat by Pulse 95 95 98 Oximetry 08/11/21 08/11/21 08/11/21 00:00 00:01 01:00 Temperature 98.7 F Pulse Rate 93 H 93 H 94 H Pulse Rate [ From Monitor] Respiratory 32 H 34 H Rate Blood Pressure 113/68 123/69 O2 Sat by Pulse 97 96 Oximetry 08/11/21 08/11/21 08/11/21 02:00 02:29 03:00 Temperature Pulse Rate 99 H 91 H Pulse Rate [ From Monitor] Respiratory 44 H 36 H Rate Blood Pressure 125/63 117/59 O2 Sat by Pulse 91 95 95 Oximetry 08/11/21 08/11/21 08/11/21 04:00 04:10 05:00 Temperature 98.8 F Pulse Rate 95 H 95 H 94 H Pulse Rate [ From Monitor] Respiratory 39 H 34 H Rate Blood Pressure 126/70 131/68 O2 Sat by Pulse 93 96 Oximetry 08/11/21 08/11/21 06:00 07:37 Temperature 97.7 F Pulse Rate 95 H Pulse Rate [ From Monitor] Respiratory 35 H Rate Blood Pressure 137/77 O2 Sat by Pulse 95 Oximetry Constitutional: alert, other (on hiflo o2) Eyes: non-icteric ENT: oropharynx moist Neck: supple Effort: normal Ascultation: Bilateral: diminished breath sounds Cardiovascular: regular rate and rhythm Gastrointestinal: normoactive bowel sounds, soft, non-tender, non-distended Integumentary: normal Extremities: no cyanosis, no edema, pink and warm Neurologic: non-focal exam, pupils equal and round Psychiatric: mood appropriate, affect normal CBC and BMP: 07/23/21 04:35 08/08/21 04:51 ABG, PT/INR, D-dimer: ABG ABG pH 7.417 (7.320-7.450) 07/23/21 18:11 POC ABG pCO2 78.3 mmHg (32.0-48.0) H 07/23/21 18:11 ABG pCO2 85.7 mm Hg 07/22/21 12:05 POC ABG pO2 80.7 mmHg (83-108) L 07/23/21 18:11 ABG pO2 66.1 mm Hg (80.0-90.0) L 07/22/21 12:05 POC ABG HCO3 49.3 07/23/21 18:11 ABG O2 Saturation 96.7 (0-100) 07/23/21 18:11 PT/INR, D-dimer D-Dimer 638.35 ng/mlDDU (0-234) H 07/09/21 04:45 Abnormal lab findings: Abnormal Labs 04/16/21 04/16/21 04/16/21 11:42 11:42 11:42 WBC MCV MCH MCHC RDW 16.1 H Lymph % (Auto) 7.8 L [place] % (Auto) Eos % (Auto) Lymph # (Auto) 0.8 L [place] # (Auto) Eos # (Auto) Baso # (Auto) Seg Neutrophils % 87.7 H Seg Neuts % (Manual) Lymphocytes % (Manual) Seg Neutrophils # 8.5 H Seg Neutrophils # Man Lymphocytes # (Manual) D-Dimer 338.70 H ABG pH POC ABG pCO2 POC ABG pO2 ABG pO2 ABG HCO3 ABG O2 Saturation ABG Base Excess ABG Oxyhemoglobin ABG Sodium ABG Chloride ABG Glucose Oxyhemoglobin Carboxyhemoglobin Sodium Potassium Chloride Carbon Dioxide BUN Creatinine Glucose 194 H POC Glucose Hemoglobin A1c Magnesium Ferritin AST ALT Alkaline Phosphatase Lactate Dehydrogenase C-Reactive Protein Total Protein 8.4 H Albumin 3.8 L Arterial Blood Glucose Coronavirus (PCR) 04/16/21 04/16/21 04/17/21 11:42 11:42 03:50 WBC MCV MCH MCHC RDW 16.0 H Lymph % (Auto) 7.7 L [place] % (Auto) Eos % (Auto) Lymph # (Auto) 0.6 L [place] # (Auto) Eos # (Auto) Baso # (Auto) Seg Neutrophils % 89.8 H Seg Neuts % (Manual) Lymphocytes % (Manual) Seg Neutrophils # Seg Neutrophils # Man Lymphocytes # (Manual) D-Dimer ABG pH POC ABG pCO2 POC ABG pO2 ABG pO2 ABG HCO3 ABG O2 Saturation ABG Base Excess ABG Oxyhemoglobin ABG Sodium ABG Chloride ABG Glucose Oxyhemoglobin Carboxyhemoglobin Sodium Potassium Chloride Carbon Dioxide BUN Creatinine Glucose 195 H POC Glucose Hemoglobin A1c Magnesium Ferritin 254.3 H AST ALT Alkaline Phosphatase Lactate Dehydrogenase 359 H C-Reactive Protein 15.20 H Total Protein Albumin Arterial Blood Glucose Coronavirus (PCR) 04/17/21 04/17/21 04/17/21 03:50 08:26 08:26 WBC MCV MCH MCHC RDW Lymph % (Auto) [place] % (Auto) Eos % (Auto) Lymph # (Auto) [place] # (Auto) Eos # (Auto) Baso # (Auto) Seg Neutrophils % Seg Neuts % (Manual) Lymphocytes % (Manual) Seg Neutrophils # Seg Neutrophils # Man Lymphocytes # (Manual) D-Dimer 262.48 H ABG pH POC ABG pCO2 POC ABG pO2 ABG pO2 ABG HCO3 ABG O2 Saturation ABG Base Excess ABG Oxyhemoglobin ABG Sodium ABG Chloride ABG Glucose Oxyhemoglobin Carboxyhemoglobin Sodium Potassium Chloride Carbon Dioxide BUN 20 H Creatinine 0.5 L Glucose 249 H 225 H POC Glucose Hemoglobin A1c Magnesium Ferritin AST ALT Alkaline Phosphatase Lactate Dehydrogenase 338 H C-Reactive Protein 17.20 H Total Protein Albumin 3.2 L Arterial Blood Glucose Coronavirus (PCR) 04/17/21 04/17/21 04/17/21 08:26 15:04 Unknown WBC MCV MCH MCHC RDW Lymph % (Auto) [place] % (Auto) Eos % (Auto) Lymph # (Auto) [place] # (Auto) Eos # (Auto) Baso # (Auto) Seg Neutrophils % Seg Neuts % (Manual) Lymphocytes % (Manual) Seg Neutrophils # Seg Neutrophils # Man Lymphocytes # (Manual) D-Dimer ABG pH POC ABG pCO2 POC ABG pO2 ABG pO2 ABG HCO3 ABG O2 Saturation ABG Base Excess ABG Oxyhemoglobin ABG Sodium ABG Chloride ABG Glucose Oxyhemoglobin Carboxyhemoglobin Sodium Potassium Chloride Carbon Dioxide BUN 20 H Creatinine 0.5 L Glucose 246 H POC Glucose Hemoglobin A1c Magnesium Ferritin 392.0 H AST ALT Alkaline Phosphatase Lactate Dehydrogenase C-Reactive Protein Total Protein 8.3 H Albumin 3.1 L Arterial Blood Glucose Coronavirus (PCR) Positive A 04/18/21 04/18/21 04/18/21 05:06 05:06 07:36 WBC 11.6 H MCV MCH MCHC RDW 16.1 H Lymph % (Auto) [place] % (Auto) Eos % (Auto) Lymph # (Auto) [place] # (Auto) Eos # (Auto) Baso # (Auto) Seg Neutrophils % Seg Neuts % (Manual) Lymphocytes % (Manual) Seg Neutrophils # Seg Neutrophils # Man Lymphocytes # (Manual) D-Dimer ABG pH POC ABG pCO2 POC ABG pO2 ABG pO2 ABG HCO3 ABG O2 Saturation ABG Base Excess ABG Oxyhemoglobin ABG Sodium ABG Chloride ABG Glucose Oxyhemoglobin Carboxyhemoglobin Sodium Potassium 5.2 H Chloride Carbon Dioxide BUN 22 H Creatinine 0.5 L Glucose 315 H POC Glucose Hemoglobin A1c 8.5 H Magnesium Ferritin AST ALT Alkaline Phosphatase Lactate Dehydrogenase C-Reactive Protein Total Protein Albumin 3.3 L Arterial Blood Glucose Coronavirus (PCR) 04/18/21 04/18/21 04/18/21 11:59 16:43 23:24 WBC MCV MCH MCHC RDW Lymph % (Auto) [place] % (Auto) Eos % (Auto) Lymph # (Auto) [place] # (Auto) Eos # (Auto) Baso # (Auto) Seg Neutrophils % Seg Neuts % (Manual) Lymphocytes % (Manual) Seg Neutrophils # Seg Neutrophils # Man Lymphocytes # (Manual) D-Dimer ABG pH POC ABG pCO2 POC ABG pO2 ABG pO2 ABG HCO3 ABG O2 Saturation ABG Base Excess ABG Oxyhemoglobin ABG Sodium ABG Chloride ABG Glucose Oxyhemoglobin Carboxyhemoglobin Sodium Potassium Chloride Carbon Dioxide BUN Creatinine Glucose POC Glucose 284 H 273 H 290 H Hemoglobin A1c Magnesium Ferritin AST ALT Alkaline Phosphatase Lactate Dehydrogenase C-Reactive Protein Total Protein Albumin Arterial Blood Glucose Coronavirus (PCR) 08/06/21 08/06/21 08/06/21 04:19 04:19 08:10 WBC MCV MCH MCHC RDW 15.7 H Lymph % (Auto) [place] % (Auto) Eos % (Auto) Lymph # (Auto) [place] # (Auto) Eos # (Auto) Baso # (Auto) Seg Neutrophils % Seg Neuts % (Manual) Lymphocytes % (Manual) Seg Neutrophils # Seg Neutrophils # Man Lymphocytes # (Manual) D-Dimer ABG pH POC ABG pCO2 POC ABG pO2 ABG pO2 ABG HCO3 ABG O2 Saturation ABG Base Excess ABG Oxyhemoglobin ABG Sodium ABG Chloride ABG Glucose Oxyhemoglobin Carboxyhemoglobin Sodium Potassium Chloride Carbon Dioxide BUN 27 H Creatinine 0.4 L Glucose 184 H POC Glucose 194 H Hemoglobin A1c Magnesium Ferritin AST ALT Alkaline Phosphatase Lactate Dehydrogenase C-Reactive Protein Total Protein Albumin 3.1 L Arterial Blood Glucose Coronavirus (PCR) 04/19/21 04/19/21 04/19/21 11:38 16:25 22:04 WBC MCV MCH MCHC RDW Lymph % (Auto) [place] % (Auto) Eos % (Auto) Lymph # (Auto) [place] # (Auto) Eos # (Auto) Baso # (Auto) Seg Neutrophils % Seg Neuts % (Manual) Lymphocytes % (Manual) Seg Neutrophils # Seg Neutrophils # Man Lymphocytes # (Manual) D-Dimer ABG pH POC ABG pCO2 POC ABG pO2 ABG pO2 ABG HCO3 ABG O2 Saturation ABG Base Excess ABG Oxyhemoglobin ABG Sodium ABG Chloride ABG Glucose Oxyhemoglobin Carboxyhemoglobin Sodium Potassium Chloride Carbon Dioxide BUN Creatinine Glucose POC Glucose 224 H 297 H 251 H Hemoglobin A1c Magnesium Ferritin AST ALT Alkaline Phosphatase Lactate Dehydrogenase C-Reactive Protein Total Protein Albumin Arterial Blood Glucose Coronavirus (PCR) 04/20/21 04/20/21 04/20/21 05:28 08:43 16:21 WBC MCV MCH MCHC RDW Lymph % (Auto) [place] % (Auto) Eos % (Auto) Lymph # (Auto) [place] # (Auto) Eos # (Auto) Baso # (Auto) Seg Neutrophils % Seg Neuts % (Manual) Lymphocytes % (Manual) Seg Neutrophils # Seg Neutrophils # Man Lymphocytes # (Manual) D-Dimer ABG pH POC ABG pCO2 POC ABG pO2 ABG pO2 ABG HCO3 ABG O2 Saturation ABG Base Excess ABG Oxyhemoglobin ABG Sodium ABG Chloride ABG Glucose Oxyhemoglobin Carboxyhemoglobin Sodium Potassium Chloride Carbon Dioxide BUN 27 H Creatinine Glucose 192 H POC Glucose 173 H 253 H Hemoglobin A1c Magnesium Ferritin AST ALT Alkaline Phosphatase Lactate Dehydrogenase C-Reactive Protein Total Protein Albumin 3.0 L Arterial Blood Glucose Coronavirus (PCR) 04/21/21 04/21/21 04/21/21 07:58 12:05 16:08 WBC MCV MCH MCHC RDW Lymph % (Auto) [place] % (Auto) Eos % (Auto) Lymph # (Auto) [place] # (Auto) Eos # (Auto) Baso # (Auto) Seg Neutrophils % Seg Neuts % (Manual) Lymphocytes % (Manual) Seg Neutrophils # Seg Neutrophils # Man Lymphocytes # (Manual) D-Dimer ABG pH POC ABG pCO2 POC ABG pO2 ABG pO2 ABG HCO3 ABG O2 Saturation ABG Base Excess ABG Oxyhemoglobin ABG Sodium ABG Chloride ABG Glucose Oxyhemoglobin Carboxyhemoglobin Sodium Potassium Chloride Carbon Dioxide BUN Creatinine Glucose POC Glucose 140 H 252 H 214 H Hemoglobin A1c Magnesium Ferritin AST ALT Alkaline Phosphatase Lactate Dehydrogenase C-Reactive Protein Total Protein Albumin Arterial Blood Glucose Coronavirus (PCR) 04/21/21 04/22/21 04/22/21 21:42 08:37 12:01 WBC MCV MCH MCHC RDW Lymph % (Auto) [place] % (Auto) Eos % (Auto) Lymph # (Auto) [place] # (Auto) Eos # (Auto) Baso # (Auto) Seg Neutrophils % Seg Neuts % (Manual) Lymphocytes % (Manual) Seg Neutrophils # Seg Neutrophils # Man Lymphocytes # (Manual) D-Dimer ABG pH 7.457 H POC ABG pCO2 POC ABG pO2 49.4 L ABG pO2 ABG HCO3 ABG O2 Saturation ABG Base Excess ABG Oxyhemoglobin 85.6 L ABG Sodium ABG Chloride ABG Glucose 121 H Oxyhemoglobin Carboxyhemoglobin 0.3 L Sodium Potassium Chloride Carbon Dioxide BUN Creatinine Glucose POC Glucose 162 H 227 H Hemoglobin A1c Magnesium Ferritin AST ALT Alkaline Phosphatase Lactate Dehydrogenase C-Reactive Protein Total Protein Albumin Arterial Blood Glucose 121 H Coronavirus (PCR) 04/22/21 04/22/21 04/23/21 16:26 22:23 04:52 WBC MCV MCH MCHC RDW 15.7 H Lymph % (Auto) [place] % (Auto) Eos % (Auto) Lymph # (Auto) [place] # (Auto) Eos # (Auto) Baso # (Auto) Seg Neutrophils % Seg Neuts % (Manual) Lymphocytes % (Manual) Seg Neutrophils # Seg Neutrophils # Man Lymphocytes # (Manual) D-Dimer ABG pH POC ABG pCO2 POC ABG pO2 ABG pO2 ABG HCO3 ABG O2 Saturation ABG Base Excess ABG Oxyhemoglobin ABG Sodium ABG Chloride ABG Glucose Oxyhemoglobin Carboxyhemoglobin Sodium Potassium Chloride Carbon Dioxide BUN Creatinine Glucose POC Glucose 200 H 136 H Hemoglobin A1c Magnesium Ferritin AST ALT Alkaline Phosphatase Lactate Dehydrogenase C-Reactive Protein Total Protein Albumin Arterial Blood Glucose Coronavirus (PCR) 04/23/21 04/23/21 04/23/21 04:52 12:06 17:41 WBC MCV MCH MCHC RDW Lymph % (Auto) [place] % (Auto) Eos % (Auto) Lymph # (Auto) [place] # (Auto) Eos # (Auto) Baso # (Auto) Seg Neutrophils % Seg Neuts % (Manual) Lymphocytes % (Manual) Seg Neutrophils # Seg Neutrophils # Man Lymphocytes # (Manual) D-Dimer ABG pH POC ABG pCO2 POC ABG pO2 ABG pO2 ABG HCO3 ABG O2 Saturation ABG Base Excess ABG Oxyhemoglobin ABG Sodium ABG Chloride ABG Glucose Oxyhemoglobin Carboxyhemoglobin Sodium 136 L Potassium Chloride 97.7 L Carbon Dioxide BUN 23 H Creatinine Glucose 101 H POC Glucose 202 H 169 H Hemoglobin A1c Magnesium Ferritin AST 46 H ALT Alkaline Phosphatase Lactate Dehydrogenase C-Reactive Protein Total Protein Albumin 3.3 L Arterial Blood Glucose Coronavirus (PCR) 04/23/21 04/24/21 04/24/21 23:08 05:17 08:38 WBC MCV MCH MCHC RDW Lymph % (Auto) [place] % (Auto) Eos % (Auto) Lymph # (Auto) [place] # (Auto) Eos # (Auto) Baso # (Auto) Seg Neutrophils % Seg Neuts % (Manual) Lymphocytes % (Manual) Seg Neutrophils # Seg Neutrophils # Man Lymphocytes # (Manual) D-Dimer ABG pH POC ABG pCO2 POC ABG pO2 ABG pO2 ABG HCO3 ABG O2 Saturation ABG Base Excess ABG Oxyhemoglobin ABG Sodium ABG Chloride ABG Glucose Oxyhemoglobin Carboxyhemoglobin Sodium Potassium Chloride Carbon Dioxide BUN Creatinine Glucose POC Glucose 111 H 108 H 126 H Hemoglobin A1c Magnesium Ferritin AST ALT Alkaline Phosphatase Lactate Dehydrogenase C-Reactive Protein Total Protein Albumin Arterial Blood Glucose Coronavirus (PCR) 04/24/21 04/24/21 04/24/21 11:54 17:57 21:23 WBC MCV MCH MCHC RDW Lymph % (Auto) [place] % (Auto) Eos % (Auto) Lymph # (Auto) [place] # (Auto) Eos # (Auto) Baso # (Auto) Seg Neutrophils % Seg Neuts % (Manual) Lymphocytes % (Manual) Seg Neutrophils # Seg Neutrophils # Man Lymphocytes # (Manual) D-Dimer ABG pH POC ABG pCO2 POC ABG pO2 ABG pO2 ABG HCO3 ABG O2 Saturation ABG Base Excess ABG Oxyhemoglobin ABG Sodium ABG Chloride ABG Glucose Oxyhemoglobin Carboxyhemoglobin Sodium Potassium Chloride Carbon Dioxide BUN Creatinine Glucose POC Glucose 147 H 177 H 138 H Hemoglobin A1c Magnesium Ferritin AST ALT Alkaline Phosphatase Lactate Dehydrogenase C-Reactive Protein Total Protein Albumin Arterial Blood Glucose Coronavirus (PCR) 04/25/21 04/25/21 04/25/21 07:06 11:23 15:43 WBC MCV MCH MCHC RDW Lymph % (Auto) [place] % (Auto) Eos % (Auto) Lymph # (Auto) [place] # (Auto) Eos # (Auto) Baso # (Auto) Seg Neutrophils % Seg Neuts % (Manual) Lymphocytes % (Manual) Seg Neutrophils # Seg Neutrophils # Man Lymphocytes # (Manual) D-Dimer ABG pH POC ABG pCO2 POC ABG pO2 ABG pO2 ABG HCO3 ABG O2 Saturation ABG Base Excess ABG Oxyhemoglobin ABG Sodium ABG Chloride ABG Glucose Oxyhemoglobin Carboxyhemoglobin Sodium Potassium Chloride Carbon Dioxide BUN Creatinine Glucose POC Glucose 147 H 169 H 227 H Hemoglobin A1c Magnesium Ferritin AST ALT Alkaline Phosphatase Lactate Dehydrogenase C-Reactive Protein Total Protein Albumin Arterial Blood Glucose Coronavirus (PCR) 04/25/21 04/26/21 04/26/21 21:22 02:45 05:15 WBC MCV MCH MCHC RDW Lymph % (Auto) [place] % (Auto) Eos % (Auto) Lymph # (Auto) [place] # (Auto) Eos # (Auto) Baso # (Auto) Seg Neutrophils % Seg Neuts % (Manual) Lymphocytes % (Manual) Seg Neutrophils # Seg Neutrophils # Man Lymphocytes # (Manual) D-Dimer ABG pH POC ABG pCO2 POC ABG pO2 70.7 L ABG pO2 ABG HCO3 ABG O2 Saturation ABG Base Excess ABG Oxyhemoglobin 93.0 L ABG Sodium 132.7 L ABG Chloride ABG Glucose 115 H Oxyhemoglobin Carboxyhemoglobin Sodium Potassium Chloride 95.8 L Carbon Dioxide 32 H BUN 20 H Creatinine Glucose 102 H POC Glucose 196 H Hemoglobin A1c Magnesium Ferritin AST ALT Alkaline Phosphatase Lactate Dehydrogenase C-Reactive Protein Total Protein Albumin Arterial Blood Glucose 115 H Coronavirus (PCR) 04/26/21 04/26/21 04/26/21 11:49 16:09 21:07 WBC MCV MCH MCHC RDW Lymph % (Auto) [place] % (Auto) Eos % (Auto) Lymph # (Auto) [place] # (Auto) Eos # (Auto) Baso # (Auto) Seg Neutrophils % Seg Neuts % (Manual) Lymphocytes % (Manual) Seg Neutrophils # Seg Neutrophils # Man Lymphocytes # (Manual) D-Dimer ABG pH POC ABG pCO2 POC ABG pO2 ABG pO2 ABG HCO3 ABG O2 Saturation ABG Base Excess ABG Oxyhemoglobin ABG Sodium ABG Chloride ABG Glucose Oxyhemoglobin Carboxyhemoglobin Sodium Potassium Chloride Carbon Dioxide BUN Creatinine Glucose POC Glucose 114 H 188 H 136 H Hemoglobin A1c Magnesium Ferritin AST ALT Alkaline Phosphatase Lactate Dehydrogenase C-Reactive Protein Total Protein Albumin Arterial Blood Glucose Coronavirus (PCR) 04/27/21 04/27/21 04/28/21 17:34 22:12 08:26 WBC MCV MCH MCHC RDW Lymph % (Auto) [place] % (Auto) Eos % (Auto) Lymph # (Auto) [place] # (Auto) Eos # (Auto) Baso # (Auto) Seg Neutrophils % Seg Neuts % (Manual) Lymphocytes % (Manual) Seg Neutrophils # Seg Neutrophils # Man Lymphocytes # (Manual) D-Dimer ABG pH POC ABG pCO2 POC ABG pO2 ABG pO2 ABG HCO3 ABG O2 Saturation ABG Base Excess ABG Oxyhemoglobin ABG Sodium ABG Chloride ABG Glucose Oxyhemoglobin Carboxyhemoglobin Sodium Potassium Chloride Carbon Dioxide BUN Creatinine Glucose POC Glucose 128 H 159 H 69 L Hemoglobin A1c Magnesium Ferritin AST ALT Alkaline Phosphatase Lactate Dehydrogenase C-Reactive Protein Total Protein Albumin Arterial Blood Glucose Coronavirus (PCR) 04/28/21 04/28/21 04/29/21 12:22 21:11 06:05 WBC MCV MCH MCHC RDW Lymph % (Auto) [place] % (Auto) Eos % (Auto) Lymph # (Auto) [place] # (Auto) Eos # (Auto) Baso # (Auto) Seg Neutrophils % Seg Neuts % (Manual) Lymphocytes % (Manual) Seg Neutrophils # Seg Neutrophils # Man Lymphocytes # (Manual) D-Dimer ABG pH POC ABG pCO2 POC ABG pO2 ABG pO2 ABG HCO3 ABG O2 Saturation ABG Base Excess ABG Oxyhemoglobin ABG Sodium ABG Chloride ABG Glucose Oxyhemoglobin Carboxyhemoglobin Sodium 132 L Potassium Chloride 94.4 L Carbon Dioxide BUN Creatinine 0.2 L D Glucose 140 H POC Glucose 141 H 171 H Hemoglobin A1c Magnesium Ferritin AST ALT Alkaline Phosphatase Lactate Dehydrogenase C-Reactive Protein Total Protein Albumin Arterial Blood Glucose Coronavirus (PCR) 04/29/21 04/29/21 04/29/21 06:05 07:24 11:36 WBC MCV MCH MCHC 35 H RDW 15.9 H Lymph % (Auto) [place] % (Auto) Eos % (Auto) Lymph # (Auto) [place] # (Auto) Eos # (Auto) Baso # (Auto) Seg Neutrophils % Seg Neuts % (Manual) Lymphocytes % (Manual) Seg Neutrophils # Seg Neutrophils # Man Lymphocytes # (Manual) D-Dimer ABG pH POC ABG pCO2 POC ABG pO2 ABG pO2 ABG HCO3 ABG O2 Saturation ABG Base Excess ABG Oxyhemoglobin ABG Sodium ABG Chloride ABG Glucose Oxyhemoglobin Carboxyhemoglobin Sodium Potassium Chloride Carbon Dioxide BUN Creatinine Glucose POC Glucose 141 H 220 H Hemoglobin A1c Magnesium Ferritin AST ALT Alkaline Phosphatase Lactate Dehydrogenase C-Reactive Protein Total Protein Albumin Arterial Blood Glucose Coronavirus (PCR) 04/29/21 04/29/21 04/29/21 14:23 15:30 17:06 WBC MCV MCH MCHC RDW Lymph % (Auto) [place] % (Auto) Eos % (Auto) Lymph # (Auto) [place] # (Auto) Eos # (Auto) Baso # (Auto) Seg Neutrophils % Seg Neuts % (Manual) Lymphocytes % (Manual) Seg Neutrophils # Seg Neutrophils # Man Lymphocytes # (Manual) D-Dimer ABG pH POC ABG pCO2 POC ABG pO2 ABG pO2 52.6 L ABG HCO3 ABG O2 Saturation 86.4 L ABG Base Excess ABG Oxyhemoglobin ABG Sodium ABG Chloride ABG Glucose Oxyhemoglobin 84.6 L Carboxyhemoglobin Sodium Potassium Chloride Carbon Dioxide BUN Creatinine Glucose POC Glucose 173 H 158 H Hemoglobin A1c Magnesium Ferritin AST ALT Alkaline Phosphatase Lactate Dehydrogenase C-Reactive Protein Total Protein Albumin Arterial Blood Glucose Coronavirus (PCR) 04/29/21 04/30/21 04/30/21 21:27 07:16 08:00 WBC MCV MCH MCHC RDW 16.1 H Lymph % (Auto) [place] % (Auto) Eos % (Auto) Lymph # (Auto) [place] # (Auto) Eos # (Auto) Baso # (Auto) Seg Neutrophils % Seg Neuts % (Manual) Lymphocytes % (Manual) Seg Neutrophils # Seg Neutrophils # Man Lymphocytes # (Manual) D-Dimer ABG pH POC ABG pCO2 POC ABG pO2 ABG pO2 ABG HCO3 ABG O2 Saturation ABG Base Excess ABG Oxyhemoglobin ABG Sodium ABG Chloride ABG Glucose Oxyhemoglobin Carboxyhemoglobin Sodium Potassium Chloride Carbon Dioxide BUN Creatinine Glucose POC Glucose 244 H 175 H Hemoglobin A1c Magnesium Ferritin AST ALT Alkaline Phosphatase Lactate Dehydrogenase C-Reactive Protein Total Protein Albumin Arterial Blood Glucose Coronavirus (PCR) 04/30/21 04/30/21 04/30/21 08:00 08:00 11:03 WBC MCV MCH MCHC RDW Lymph % (Auto) [place] % (Auto) Eos % (Auto) Lymph # (Auto) [place] # (Auto) Eos # (Auto) Baso # (Auto) Seg Neutrophils % Seg Neuts % (Manual) Lymphocytes % (Manual) Seg Neutrophils # Seg Neutrophils # Man Lymphocytes # (Manual) D-Dimer 1796.87 H ABG pH POC ABG pCO2 POC ABG pO2 ABG pO2 ABG HCO3 ABG O2 Saturation ABG Base Excess ABG Oxyhemoglobin ABG Sodium ABG Chloride ABG Glucose Oxyhemoglobin Carboxyhemoglobin Sodium 135 L Potassium Chloride 96.3 L Carbon Dioxide BUN Creatinine 0.2 L Glucose 153 H POC Glucose 183 H Hemoglobin A1c Magnesium Ferritin AST 41 H ALT 76 H Alkaline Phosphatase 160 H Lactate Dehydrogenase 522 H C-Reactive Protein Total Protein 6.1 L Albumin 3.1 L Arterial Blood Glucose Coronavirus (PCR) 04/30/21 04/30/21 05/01/21 17:04 22:17 05:39 WBC MCV MCH MCHC RDW Lymph % (Auto) [place] % (Auto) Eos % (Auto) Lymph # (Auto) [place] # (Auto) Eos # (Auto) Baso # (Auto) Seg Neutrophils % Seg Neuts % (Manual) Lymphocytes % (Manual) Seg Neutrophils # Seg Neutrophils # Man Lymphocytes # (Manual) D-Dimer ABG pH POC ABG pCO2 POC ABG pO2 ABG pO2 ABG HCO3 ABG O2 Saturation ABG Base Excess ABG Oxyhemoglobin ABG Sodium ABG Chloride ABG Glucose Oxyhemoglobin Carboxyhemoglobin Sodium 133 L Potassium Chloride 92.1 L Carbon Dioxide BUN 24 H Creatinine 0.4 L D Glucose 269 H POC Glucose 167 H 208 H Hemoglobin A1c Magnesium Ferritin AST ALT 66 H Alkaline Phosphatase 142 H Lactate Dehydrogenase C-Reactive Protein Total Protein Albumin 3.2 L Arterial Blood Glucose Coronavirus (PCR) 05/01/21 05/01/21 05/01/21 05:39 05:39 07:45 WBC MCV MCH MCHC RDW 16.0 H Lymph % (Auto) [place] % (Auto) Eos % (Auto) Lymph # (Auto) [place] # (Auto) Eos # (Auto) Baso # (Auto) Seg Neutrophils % Seg Neuts % (Manual) Lymphocytes % (Manual) Seg Neutrophils # Seg Neutrophils # Man Lymphocytes # (Manual) D-Dimer 3984.95 H ABG pH POC ABG pCO2 POC ABG pO2 ABG pO2 ABG HCO3 ABG O2 Saturation ABG Base Excess ABG Oxyhemoglobin ABG Sodium ABG Chloride ABG Glucose Oxyhemoglobin Carboxyhemoglobin Sodium Potassium Chloride Carbon Dioxide BUN Creatinine Glucose POC Glucose 229 H Hemoglobin A1c Magnesium Ferritin AST ALT Alkaline Phosphatase Lactate Dehydrogenase C-Reactive Protein Total Protein Albumin Arterial Blood Glucose Coronavirus (PCR) 05/01/21 05/01/21 05/01/21 12:10 15:46 21:06 WBC MCV MCH MCHC RDW Lymph % (Auto) [place] % (Auto) Eos % (Auto) Lymph # (Auto) [place] # (Auto) Eos # (Auto) Baso # (Auto) Seg Neutrophils % Seg Neuts % (Manual) Lymphocytes % (Manual) Seg Neutrophils # Seg Neutrophils # Man Lymphocytes # (Manual) D-Dimer ABG pH POC ABG pCO2 POC ABG pO2 ABG pO2 ABG HCO3 ABG O2 Saturation ABG Base Excess ABG Oxyhemoglobin ABG Sodium ABG Chloride ABG Glucose Oxyhemoglobin Carboxyhemoglobin Sodium Potassium Chloride Carbon Dioxide BUN Creatinine Glucose POC Glucose 296 H 279 H 232 H Hemoglobin A1c Magnesium Ferritin AST ALT Alkaline Phosphatase Lactate Dehydrogenase C-Reactive Protein Total Protein Albumin Arterial Blood Glucose Coronavirus (PCR) 05/02/21 05/02/21 05/02/21 04:55 04:55 04:55 WBC MCV MCH MCHC RDW 16.1 H Lymph % (Auto) [place] % (Auto) Eos % (Auto) Lymph # (Auto) [place] # (Auto) Eos # (Auto) Baso # (Auto) Seg Neutrophils % Seg Neuts % (Manual) Lymphocytes % (Manual) Seg Neutrophils # Seg Neutrophils # Man Lymphocytes # (Manual) D-Dimer 1401.08 H ABG pH POC ABG pCO2 POC ABG pO2 ABG pO2 ABG HCO3 ABG O2 Saturation ABG Base Excess ABG Oxyhemoglobin ABG Sodium ABG Chloride ABG Glucose Oxyhemoglobin Carboxyhemoglobin Sodium 131 L Potassium Chloride 95.5 L Carbon Dioxide BUN 20 H Creatinine 0.3 L Glucose 288 H POC Glucose Hemoglobin A1c Magnesium Ferritin AST ALT Alkaline Phosphatase Lactate Dehydrogenase C-Reactive Protein Total Protein 6.0 L Albumin 3.1 L Arterial Blood Glucose Coronavirus (PCR) 05/02/21 05/02/21 05/02/21 07:53 11:45 15:25 WBC MCV MCH MCHC RDW Lymph % (Auto) [place] % (Auto) Eos % (Auto) Lymph # (Auto) [place] # (Auto) Eos # (Auto) Baso # (Auto) Seg Neutrophils % Seg Neuts % (Manual) Lymphocytes % (Manual) Seg Neutrophils # Seg Neutrophils # Man Lymphocytes # (Manual) D-Dimer ABG pH POC ABG pCO2 POC ABG pO2 ABG pO2 ABG HCO3 ABG O2 Saturation ABG Base Excess ABG Oxyhemoglobin ABG Sodium ABG Chloride ABG Glucose Oxyhemoglobin Carboxyhemoglobin Sodium Potassium Chloride Carbon Dioxide BUN Creatinine Glucose POC Glucose 180 H 228 H 275 H Hemoglobin A1c Magnesium Ferritin AST ALT Alkaline Phosphatase Lactate Dehydrogenase C-Reactive Protein Total Protein Albumin Arterial Blood Glucose Coronavirus (PCR) 05/02/21 05/03/21 05/03/21 22:56 04:30 04:49 WBC MCV MCH MCHC RDW Lymph % (Auto) [place] % (Auto) Eos % (Auto) Lymph # (Auto) [place] # (Auto) Eos # (Auto) Baso # (Auto) Seg Neutrophils % Seg Neuts % (Manual) Lymphocytes % (Manual) Seg Neutrophils # Seg Neutrophils # Man Lymphocytes # (Manual) D-Dimer ABG pH 7.229 L POC ABG pCO2 POC ABG pO2 65.3 L ABG pO2 ABG HCO3 ABG O2 Saturation ABG Base Excess ABG Oxyhemoglobin 87.8 L ABG Sodium 133.0 L ABG Chloride 97.0 L ABG Glucose 403 H Oxyhemoglobin Carboxyhemoglobin Sodium 130 L Potassium Chloride 94.9 L Carbon Dioxide BUN 20 H Creatinine 0.5 L D Glucose 359 H POC Glucose 293 H Hemoglobin A1c Magnesium Ferritin AST 54 H ALT 75 H Alkaline Phosphatase 138 H Lactate Dehydrogenase C-Reactive Protein Total Protein Albumin 3.6 L Arterial Blood Glucose 403 H Coronavirus (PCR) 05/03/21 05/03/21 05/03/21 05:27 11:26 17:57 WBC MCV MCH MCHC RDW Lymph % (Auto) [place] % (Auto) Eos % (Auto) Lymph # (Auto) [place] # (Auto) Eos # (Auto) Baso # (Auto) Seg Neutrophils % Seg Neuts % (Manual) Lymphocytes % (Manual) Seg Neutrophils # Seg Neutrophils # Man Lymphocytes # (Manual) D-Dimer ABG pH POC ABG pCO2 POC ABG pO2 ABG pO2 ABG HCO3 ABG O2 Saturation ABG Base Excess ABG Oxyhemoglobin ABG Sodium ABG Chloride ABG Glucose Oxyhemoglobin Carboxyhemoglobin Sodium Potassium Chloride Carbon Dioxide BUN Creatinine Glucose POC Glucose 361 H 297 H 226 H Hemoglobin A1c Magnesium Ferritin AST ALT Alkaline Phosphatase Lactate Dehydrogenase C-Reactive Protein Total Protein Albumin Arterial Blood Glucose Coronavirus (PCR) 05/03/21 05/04/21 05/04/21 23:12 05:12 07:30 WBC MCV MCH MCHC RDW Lymph % (Auto) [place] % (Auto) Eos % (Auto) Lymph # (Auto) [place] # (Auto) Eos # (Auto) Baso # (Auto) Seg Neutrophils % Seg Neuts % (Manual) Lymphocytes % (Manual) Seg Neutrophils # Seg Neutrophils # Man Lymphocytes # (Manual) D-Dimer ABG pH POC ABG pCO2 POC ABG pO2 ABG pO2 ABG HCO3 ABG O2 Saturation ABG Base Excess ABG Oxyhemoglobin ABG Sodium ABG Chloride ABG Glucose Oxyhemoglobin Carboxyhemoglobin Sodium Potassium Chloride Carbon Dioxide BUN Creatinine Glucose POC Glucose 282 H 285 H 254 H Hemoglobin A1c Magnesium Ferritin AST ALT Alkaline Phosphatase Lactate Dehydrogenase C-Reactive Protein Total Protein Albumin Arterial Blood Glucose Coronavirus (PCR) 05/04/21 05/04/21 05/04/21 08:58 11:45 16:07 WBC MCV MCH MCHC RDW Lymph % (Auto) [place] % (Auto) Eos % (Auto) Lymph # (Auto) [place] # (Auto) Eos # (Auto) Baso # (Auto) Seg Neutrophils % Seg Neuts % (Manual) Lymphocytes % (Manual) Seg Neutrophils # Seg Neutrophils # Man Lymphocytes # (Manual) D-Dimer ABG pH POC ABG pCO2 POC ABG pO2 ABG pO2 ABG HCO3 ABG O2 Saturation ABG Base Excess ABG Oxyhemoglobin ABG Sodium ABG Chloride ABG Glucose Oxyhemoglobin Carboxyhemoglobin Sodium 134 L Potassium Chloride Carbon Dioxide BUN 20 H Creatinine 0.3 L Glucose 267 H POC Glucose 244 H 297 H Hemoglobin A1c Magnesium Ferritin AST ALT Alkaline Phosphatase Lactate Dehydrogenase C-Reactive Protein Total Protein 6.0 L Albumin 3.2 L Arterial Blood Glucose Coronavirus (PCR) 05/04/21 05/05/21 05/05/21 23:32 05:00 05:13 WBC MCV MCH MCHC RDW Lymph % (Auto) [place] % (Auto) Eos % (Auto) Lymph # (Auto) [place] # (Auto) Eos # (Auto) Baso # (Auto) Seg Neutrophils % Seg Neuts % (Manual) Lymphocytes % (Manual) Seg Neutrophils # Seg Neutrophils # Man Lymphocytes # (Manual) D-Dimer ABG pH POC ABG pCO2 POC ABG pO2 ABG pO2 ABG HCO3 ABG O2 Saturation ABG Base Excess ABG Oxyhemoglobin ABG Sodium ABG Chloride ABG Glucose Oxyhemoglobin Carboxyhemoglobin Sodium 132 L Potassium Chloride 96.4 L Carbon Dioxide BUN 22 H Creatinine 0.3 L Glucose 228 H POC Glucose 154 H 260 H Hemoglobin A1c Magnesium Ferritin AST ALT 67 H Alkaline Phosphatase Lactate Dehydrogenase C-Reactive Protein Total Protein 6.1 L Albumin 3.2 L Arterial Blood Glucose Coronavirus (PCR) 05/05/21 05/05/21 05/05/21 11:32 17:49 23:07 WBC MCV MCH MCHC RDW Lymph % (Auto) [place] % (Auto) Eos % (Auto) Lymph # (Auto) [place] # (Auto) Eos # (Auto) Baso # (Auto) Seg Neutrophils % Seg Neuts % (Manual) Lymphocytes % (Manual) Seg Neutrophils # Seg Neutrophils # Man Lymphocytes # (Manual) D-Dimer ABG pH POC ABG pCO2 POC ABG pO2 ABG pO2 ABG HCO3 ABG O2 Saturation ABG Base Excess ABG Oxyhemoglobin ABG Sodium ABG Chloride ABG Glucose Oxyhemoglobin Carboxyhemoglobin Sodium Potassium Chloride Carbon Dioxide BUN Creatinine Glucose POC Glucose 279 H 308 H 213 H Hemoglobin A1c Magnesium Ferritin AST ALT Alkaline Phosphatase Lactate Dehydrogenase C-Reactive Protein Total Protein Albumin Arterial Blood Glucose Coronavirus (PCR) 05/06/21 05/06/21 05/06/21 05:00 05:00 05:20 WBC MCV MCH MCHC RDW 16.8 H Lymph % (Auto) [place] % (Auto) Eos % (Auto) Lymph # (Auto) [place] # (Auto) Eos # (Auto) Baso # (Auto) Seg Neutrophils % Seg Neuts % (Manual) 99.0 H Lymphocytes % (Manual) Seg Neutrophils # Seg Neutrophils # Man 10.9 H Lymphocytes # (Manual) 0.0 L D-Dimer ABG pH POC ABG pCO2 POC ABG pO2 ABG pO2 ABG HCO3 ABG O2 Saturation ABG Base Excess ABG Oxyhemoglobin ABG Sodium ABG Chloride ABG Glucose Oxyhemoglobin Carboxyhemoglobin Sodium 133 L Potassium Chloride Carbon Dioxide BUN 21 H Creatinine 0.3 L Glucose 259 H POC Glucose 308 H Hemoglobin A1c Magnesium Ferritin AST ALT Alkaline Phosphatase Lactate Dehydrogenase C-Reactive Protein Total Protein Albumin 3.2 L Arterial Blood Glucose Coronavirus (PCR) 05/06/21 05/06/21 05/06/21 11:24 17:54 21:32 WBC MCV MCH MCHC RDW Lymph % (Auto) [place] % (Auto) Eos % (Auto) Lymph # (Auto) [place] # (Auto) Eos # (Auto) Baso # (Auto) Seg Neutrophils % Seg Neuts % (Manual) Lymphocytes % (Manual) Seg Neutrophils # Seg Neutrophils # Man Lymphocytes # (Manual) D-Dimer ABG pH POC ABG pCO2 POC ABG pO2 ABG pO2 ABG HCO3 ABG O2 Saturation ABG Base Excess ABG Oxyhemoglobin ABG Sodium ABG Chloride ABG Glucose Oxyhemoglobin Carboxyhemoglobin Sodium Potassium Chloride Carbon Dioxide BUN Creatinine Glucose POC Glucose 262 H 124 H 246 H Hemoglobin A1c Magnesium Ferritin AST ALT Alkaline Phosphatase Lactate Dehydrogenase C-Reactive Protein Total Protein Albumin Arterial Blood Glucose Coronavirus (PCR) 05/06/21 05/07/21 05/07/21 23:10 04:54 04:54 WBC MCV MCH MCHC RDW Lymph % (Auto) [place] % (Auto) Eos % (Auto) Lymph # (Auto) [place] # (Auto) Eos # (Auto) Baso # (Auto) Seg Neutrophils % Seg Neuts % (Manual) Lymphocytes % (Manual) Seg Neutrophils # Seg Neutrophils # Man Lymphocytes # (Manual) D-Dimer 1609.28 H ABG pH POC ABG pCO2 POC ABG pO2 ABG pO2 ABG HCO3 ABG O2 Saturation ABG Base Excess ABG Oxyhemoglobin ABG Sodium ABG Chloride ABG Glucose Oxyhemoglobin Carboxyhemoglobin Sodium 136 L Potassium Chloride Carbon Dioxide BUN 23 H Creatinine 0.3 L Glucose 110 H POC Glucose 249 H Hemoglobin A1c Magnesium Ferritin AST ALT Alkaline Phosphatase Lactate Dehydrogenase C-Reactive Protein Total Protein 6.2 L Albumin 3.0 L Arterial Blood Glucose Coronavirus (PCR) 05/07/21 05/07/21 05/07/21 04:54 04:54 11:41 WBC MCV MCH MCHC RDW Lymph % (Auto) [place] % (Auto) Eos % (Auto) Lymph # (Auto) [place] # (Auto) Eos # (Auto) Baso # (Auto) Seg Neutrophils % Seg Neuts % (Manual) Lymphocytes % (Manual) Seg Neutrophils # Seg Neutrophils # Man Lymphocytes # (Manual) D-Dimer ABG pH POC ABG pCO2 POC ABG pO2 ABG pO2 ABG HCO3 ABG O2 Saturation ABG Base Excess ABG Oxyhemoglobin ABG Sodium ABG Chloride ABG Glucose Oxyhemoglobin Carboxyhemoglobin Sodium Potassium Chloride Carbon Dioxide BUN Creatinine Glucose POC Glucose 118 H Hemoglobin A1c Magnesium Ferritin 296.1 H AST ALT Alkaline Phosphatase Lactate Dehydrogenase 724 H C-Reactive Protein Total Protein Albumin Arterial Blood Glucose Coronavirus (PCR) 05/07/21 05/07/21 05/08/21 16:43 22:34 06:44 WBC MCV MCH MCHC RDW Lymph % (Auto) [place] % (Auto) Eos % (Auto) Lymph # (Auto) [place] # (Auto) Eos # (Auto) Baso # (Auto) Seg Neutrophils % Seg Neuts % (Manual) Lymphocytes % (Manual) Seg Neutrophils # Seg Neutrophils # Man Lymphocytes # (Manual) D-Dimer ABG pH POC ABG pCO2 POC ABG pO2 ABG pO2 ABG HCO3 ABG O2 Saturation ABG Base Excess ABG Oxyhemoglobin ABG Sodium ABG Chloride ABG Glucose Oxyhemoglobin Carboxyhemoglobin Sodium Potassium Chloride Carbon Dioxide BUN Creatinine Glucose POC Glucose 159 H 233 H 235 H Hemoglobin A1c Magnesium Ferritin AST ALT Alkaline Phosphatase Lactate Dehydrogenase C-Reactive Protein Total Protein Albumin Arterial Blood Glucose Coronavirus (PCR) 05/08/21 05/08/21 05/08/21 07:49 11:56 17:13 WBC MCV MCH MCHC RDW Lymph % (Auto) [place] % (Auto) Eos % (Auto) Lymph # (Auto) [place] # (Auto) Eos # (Auto) Baso # (Auto) Seg Neutrophils % Seg Neuts % (Manual) Lymphocytes % (Manual) Seg Neutrophils # Seg Neutrophils # Man Lymphocytes # (Manual) D-Dimer ABG pH POC ABG pCO2 POC ABG pO2 ABG pO2 ABG HCO3 ABG O2 Saturation ABG Base Excess ABG Oxyhemoglobin ABG Sodium ABG Chloride ABG Glucose Oxyhemoglobin Carboxyhemoglobin Sodium Potassium Chloride Carbon Dioxide BUN Creatinine Glucose POC Glucose 219 H 184 H 182 H Hemoglobin A1c Magnesium Ferritin AST ALT Alkaline Phosphatase Lactate Dehydrogenase C-Reactive Protein Total Protein Albumin Arterial Blood Glucose Coronavirus (PCR) 05/08/21 05/09/21 05/09/21 23:35 05:20 05:20 WBC MCV MCH MCHC RDW Lymph % (Auto) [place] % (Auto) Eos % (Auto) Lymph # (Auto) [place] # (Auto) Eos # (Auto) Baso # (Auto) Seg Neutrophils % Seg Neuts % (Manual) Lymphocytes % (Manual) Seg Neutrophils # Seg Neutrophils # Man Lymphocytes # (Manual) D-Dimer 1003.87 H ABG pH POC ABG pCO2 POC ABG pO2 ABG pO2 ABG HCO3 ABG O2 Saturation ABG Base Excess ABG Oxyhemoglobin ABG Sodium ABG Chloride ABG Glucose Oxyhemoglobin Carboxyhemoglobin Sodium Potassium Chloride Carbon Dioxide BUN Creatinine Glucose POC Glucose 198 H Hemoglobin A1c Magnesium Ferritin 378.7 H AST ALT Alkaline Phosphatase Lactate Dehydrogenase C-Reactive Protein Total Protein Albumin Arterial Blood Glucose Coronavirus (PCR) 05/09/21 05/09/21 05/09/21 05:20 06:04 12:53 WBC MCV MCH MCHC RDW Lymph % (Auto) [place] % (Auto) Eos % (Auto) Lymph # (Auto) [place] # (Auto) Eos # (Auto) Baso # (Auto) Seg Neutrophils % Seg Neuts % (Manual) Lymphocytes % (Manual) Seg Neutrophils # Seg Neutrophils # Man Lymphocytes # (Manual) D-Dimer ABG pH POC ABG pCO2 POC ABG pO2 ABG pO2 ABG HCO3 ABG O2 Saturation ABG Base Excess ABG Oxyhemoglobin ABG Sodium ABG Chloride ABG Glucose Oxyhemoglobin Carboxyhemoglobin Sodium Potassium Chloride Carbon Dioxide BUN Creatinine Glucose POC Glucose 159 H 180 H Hemoglobin A1c Magnesium Ferritin AST ALT Alkaline Phosphatase Lactate Dehydrogenase 558 H C-Reactive Protein 2.40 H Total Protein Albumin Arterial Blood Glucose Coronavirus (PCR) 05/09/21 05/09/21 05/10/21 16:43 21:27 10:18 WBC MCV MCH MCHC RDW Lymph % (Auto) [place] % (Auto) Eos % (Auto) Lymph # (Auto) [place] # (Auto) Eos # (Auto) Baso # (Auto) Seg Neutrophils % Seg Neuts % (Manual) Lymphocytes % (Manual) Seg Neutrophils # Seg Neutrophils # Man Lymphocytes # (Manual) D-Dimer ABG pH POC ABG pCO2 POC ABG pO2 ABG pO2 ABG HCO3 ABG O2 Saturation ABG Base Excess ABG Oxyhemoglobin ABG Sodium ABG Chloride ABG Glucose Oxyhemoglobin Carboxyhemoglobin Sodium Potassium Chloride Carbon Dioxide BUN Creatinine Glucose POC Glucose 212 H 285 H 261 H Hemoglobin A1c Magnesium Ferritin AST ALT Alkaline Phosphatase Lactate Dehydrogenase C-Reactive Protein Total Protein Albumin Arterial Blood Glucose Coronavirus (PCR) 05/10/21 05/10/21 05/11/21 17:58 18:02 00:29 WBC MCV MCH MCHC RDW Lymph % (Auto) [place] % (Auto) Eos % (Auto) Lymph # (Auto) [place] # (Auto) Eos # (Auto) Baso # (Auto) Seg Neutrophils % Seg Neuts % (Manual) Lymphocytes % (Manual) Seg Neutrophils # Seg Neutrophils # Man Lymphocytes # (Manual) D-Dimer ABG pH POC ABG pCO2 POC ABG pO2 ABG pO2 ABG HCO3 ABG O2 Saturation ABG Base Excess ABG Oxyhemoglobin ABG Sodium ABG Chloride ABG Glucose Oxyhemoglobin Carboxyhemoglobin Sodium Potassium Chloride Carbon Dioxide BUN Creatinine Glucose POC Glucose 213 H 179 H 149 H Hemoglobin A1c Magnesium Ferritin AST ALT Alkaline Phosphatase Lactate Dehydrogenase C-Reactive Protein Total Protein Albumin Arterial Blood Glucose Coronavirus (PCR) 05/11/21 05/11/21 05/11/21 05:22 11:32 17:00 WBC 14.9 H MCV MCH MCHC RDW 18.9 H Lymph % (Auto) 4.9 L [place] % (Auto) Eos % (Auto) Lymph # (Auto) 0.7 L [place] # (Auto) Eos # (Auto) Baso # (Auto) 0.2 H Seg Neutrophils % Seg Neuts % (Manual) Lymphocytes % (Manual) Seg Neutrophils # 13.3 H Seg Neutrophils # Man Lymphocytes # (Manual) D-Dimer ABG pH POC ABG pCO2 POC ABG pO2 ABG pO2 ABG HCO3 ABG O2 Saturation ABG Base Excess ABG Oxyhemoglobin ABG Sodium ABG Chloride ABG Glucose Oxyhemoglobin Carboxyhemoglobin Sodium Potassium Chloride Carbon Dioxide BUN Creatinine Glucose POC Glucose 162 H 179 H Hemoglobin A1c Magnesium Ferritin AST ALT Alkaline Phosphatase Lactate Dehydrogenase C-Reactive Protein Total Protein Albumin Arterial Blood Glucose Coronavirus (PCR) 05/11/21 05/11/21 05/11/21 17:00 17:33 22:03 WBC MCV MCH MCHC RDW Lymph % (Auto) [place] % (Auto) Eos % (Auto) Lymph # (Auto) [place] # (Auto) Eos # (Auto) Baso # (Auto) Seg Neutrophils % Seg Neuts % (Manual) Lymphocytes % (Manual) Seg Neutrophils # Seg Neutrophils # Man Lymphocytes # (Manual) D-Dimer ABG pH POC ABG pCO2 POC ABG pO2 ABG pO2 ABG HCO3 ABG O2 Saturation ABG Base Excess ABG Oxyhemoglobin ABG Sodium ABG Chloride ABG Glucose Oxyhemoglobin Carboxyhemoglobin Sodium 135 L Potassium Chloride 97.3 L Carbon Dioxide BUN 21 H Creatinine 0.3 L Glucose 133 H POC Glucose 140 H 282 H Hemoglobin A1c Magnesium Ferritin AST ALT 60 H Alkaline Phosphatase Lactate Dehydrogenase C-Reactive Protein Total Protein Albumin 3.1 L Arterial Blood Glucose Coronavirus (PCR) 05/12/21 05/12/21 05/12/21 04:05 04:05 04:05 WBC MCV MCH MCHC RDW 18.4 H Lymph % (Auto) [place] % (Auto) Eos % (Auto) Lymph # (Auto) [place] # (Auto) Eos # (Auto) Baso # (Auto) Seg Neutrophils % Seg Neuts % (Manual) 94.0 H Lymphocytes % (Manual) 4.0 L Seg Neutrophils # Seg Neutrophils # Man Lymphocytes # (Manual) 0.3 L D-Dimer ABG pH POC ABG pCO2 POC ABG pO2 ABG pO2 ABG HCO3 ABG O2 Saturation ABG Base Excess ABG Oxyhemoglobin ABG Sodium ABG Chloride ABG Glucose Oxyhemoglobin Carboxyhemoglobin Sodium 136 L Potassium Chloride Carbon Dioxide BUN 18 H Creatinine 0.2 L Glucose 142 H POC Glucose Hemoglobin A1c Magnesium Ferritin 350.7 H AST ALT Alkaline Phosphatase Lactate Dehydrogenase 546 H C-Reactive Protein Total Protein 6.1 L Albumin 3.0 L Arterial Blood Glucose Coronavirus (PCR) 05/12/21 05/12/21 05/12/21 05:11 11:17 16:27 WBC MCV MCH MCHC RDW Lymph % (Auto) [place] % (Auto) Eos % (Auto) Lymph # (Auto) [place] # (Auto) Eos # (Auto) Baso # (Auto) Seg Neutrophils % Seg Neuts % (Manual) Lymphocytes % (Manual) Seg Neutrophils # Seg Neutrophils # Man Lymphocytes # (Manual) D-Dimer ABG pH POC ABG pCO2 POC ABG pO2 ABG pO2 ABG HCO3 ABG O2 Saturation ABG Base Excess ABG Oxyhemoglobin ABG Sodium ABG Chloride ABG Glucose Oxyhemoglobin Carboxyhemoglobin Sodium Potassium Chloride Carbon Dioxide BUN Creatinine Glucose POC Glucose 152 H 190 H 261 H Hemoglobin A1c Magnesium Ferritin AST ALT Alkaline Phosphatase Lactate Dehydrogenase C-Reactive Protein Total Protein Albumin Arterial Blood Glucose Coronavirus (PCR) 05/12/21 05/13/21 05/13/21 20:55 11:08 21:41 WBC MCV MCH MCHC RDW Lymph % (Auto) [place] % (Auto) Eos % (Auto) Lymph # (Auto) [place] # (Auto) Eos # (Auto) Baso # (Auto) Seg Neutrophils % Seg Neuts % (Manual) Lymphocytes % (Manual) Seg Neutrophils # Seg Neutrophils # Man Lymphocytes # (Manual) D-Dimer ABG pH POC ABG pCO2 POC ABG pO2 ABG pO2 ABG HCO3 ABG O2 Saturation ABG Base Excess ABG Oxyhemoglobin ABG Sodium ABG Chloride ABG Glucose Oxyhemoglobin Carboxyhemoglobin Sodium Potassium Chloride Carbon Dioxide BUN Creatinine Glucose POC Glucose 231 H 106 H 174 H Hemoglobin A1c Magnesium Ferritin AST ALT Alkaline Phosphatase Lactate Dehydrogenase C-Reactive Protein Total Protein Albumin Arterial Blood Glucose Coronavirus (PCR) 05/14/21 05/14/21 05/14/21 00:53 02:23 06:06 WBC MCV MCH MCHC RDW Lymph % (Auto) [place] % (Auto) Eos % (Auto) Lymph # (Auto) [place] # (Auto) Eos # (Auto) Baso # (Auto) Seg Neutrophils % Seg Neuts % (Manual) Lymphocytes % (Manual) Seg Neutrophils # Seg Neutrophils # Man Lymphocytes # (Manual) D-Dimer ABG pH POC ABG pCO2 POC ABG pO2 ABG pO2 130.3 H ABG HCO3 30.6 H ABG O2 Saturation ABG Base Excess 4.9 H ABG Oxyhemoglobin ABG Sodium ABG Chloride ABG Glucose Oxyhemoglobin Carboxyhemoglobin Sodium Potassium Chloride Carbon Dioxide BUN Creatinine Glucose POC Glucose 229 H 119 H Hemoglobin A1c Magnesium Ferritin AST ALT Alkaline Phosphatase Lactate Dehydrogenase C-Reactive Protein Total Protein Albumin Arterial Blood Glucose Coronavirus (PCR) 05/14/21 05/14/21 05/14/21 07:13 07:13 07:13 WBC MCV MCH MCHC RDW Lymph % (Auto) [place] % (Auto) Eos % (Auto) Lymph # (Auto) [place] # (Auto) Eos # (Auto) Baso # (Auto) Seg Neutrophils % Seg Neuts % (Manual) Lymphocytes % (Manual) Seg Neutrophils # Seg Neutrophils # Man Lymphocytes # (Manual) D-Dimer 712.80 H ABG pH POC ABG pCO2 POC ABG pO2 ABG pO2 ABG HCO3 ABG O2 Saturation ABG Base Excess ABG Oxyhemoglobin ABG Sodium ABG Chloride ABG Glucose Oxyhemoglobin Carboxyhemoglobin Sodium 133 L Potassium Chloride 95.5 L Carbon Dioxide 32 H BUN Creatinine 0.2 L Glucose 137 H POC Glucose Hemoglobin A1c Magnesium Ferritin 283.5 H AST ALT 63 H Alkaline Phosphatase Lactate Dehydrogenase 563 H C-Reactive Protein Total Protein 6.1 L Albumin 3.0 L Arterial Blood Glucose Coronavirus (PCR) 05/14/21 05/14/21 05/14/21 12:21 15:33 21:50 WBC MCV MCH MCHC RDW Lymph % (Auto) [place] % (Auto) Eos % (Auto) Lymph # (Auto) [place] # (Auto) Eos # (Auto) Baso # (Auto) Seg Neutrophils % Seg Neuts % (Manual) Lymphocytes % (Manual) Seg Neutrophils # Seg Neutrophils # Man Lymphocytes # (Manual) D-Dimer ABG pH POC ABG pCO2 POC ABG pO2 ABG pO2 ABG HCO3 ABG O2 Saturation ABG Base Excess ABG Oxyhemoglobin ABG Sodium ABG Chloride ABG Glucose Oxyhemoglobin Carboxyhemoglobin Sodium Potassium Chloride Carbon Dioxide BUN Creatinine Glucose POC Glucose 143 H 204 H 202 H Hemoglobin A1c Magnesium Ferritin AST ALT Alkaline Phosphatase Lactate Dehydrogenase C-Reactive Protein Total Protein Albumin Arterial Blood Glucose Coronavirus (PCR) 05/15/21 05/15/21 05/15/21 05:05 11:12 16:39 WBC MCV MCH MCHC RDW Lymph % (Auto) [place] % (Auto) Eos % (Auto) Lymph # (Auto) [place] # (Auto) Eos # (Auto) Baso # (Auto) Seg Neutrophils % Seg Neuts % (Manual) Lymphocytes % (Manual) Seg Neutrophils # Seg Neutrophils # Man Lymphocytes # (Manual) D-Dimer ABG pH POC ABG pCO2 POC ABG pO2 ABG pO2 ABG HCO3 ABG O2 Saturation ABG Base Excess ABG Oxyhemoglobin ABG Sodium ABG Chloride ABG Glucose Oxyhemoglobin Carboxyhemoglobin Sodium Potassium Chloride Carbon Dioxide BUN Creatinine Glucose POC Glucose 125 H 201 H 241 H Hemoglobin A1c Magnesium Ferritin AST ALT Alkaline Phosphatase Lactate Dehydrogenase C-Reactive Protein Total Protein Albumin Arterial Blood Glucose Coronavirus (PCR) 05/15/21 05/16/21 05/16/21 21:31 05:04 10:40 WBC MCV MCH MCHC RDW Lymph % (Auto) [place] % (Auto) Eos % (Auto) Lymph # (Auto) [place] # (Auto) Eos # (Auto) Baso # (Auto) Seg Neutrophils % Seg Neuts % (Manual) Lymphocytes % (Manual) Seg Neutrophils # Seg Neutrophils # Man Lymphocytes # (Manual) D-Dimer ABG pH POC ABG pCO2 POC ABG pO2 ABG pO2 ABG HCO3 ABG O2 Saturation ABG Base Excess ABG Oxyhemoglobin ABG Sodium ABG Chloride ABG Glucose Oxyhemoglobin Carboxyhemoglobin Sodium Potassium Chloride Carbon Dioxide BUN Creatinine Glucose POC Glucose 234 H 123 H 231 H Hemoglobin A1c Magnesium Ferritin AST ALT Alkaline Phosphatase Lactate Dehydrogenase C-Reactive Protein Total Protein Albumin Arterial Blood Glucose Coronavirus (PCR) 05/16/21 05/16/21 05/17/21 18:23 21:29 06:20 WBC MCV MCH MCHC RDW 18.8 H Lymph % (Auto) 10.2 L [place] % (Auto) Eos % (Auto) Lymph # (Auto) 0.8 L [place] # (Auto) Eos # (Auto) Baso # (Auto) Seg Neutrophils % 85.8 H Seg Neuts % (Manual) Lymphocytes % (Manual) Seg Neutrophils # Seg Neutrophils # Man Lymphocytes # (Manual) D-Dimer ABG pH POC ABG pCO2 POC ABG pO2 ABG pO2 ABG HCO3 ABG O2 Saturation ABG Base Excess ABG Oxyhemoglobin ABG Sodium ABG Chloride ABG Glucose Oxyhemoglobin Carboxyhemoglobin Sodium Potassium Chloride Carbon Dioxide BUN Creatinine Glucose POC Glucose 266 H 234 H Hemoglobin A1c Magnesium Ferritin AST ALT Alkaline Phosphatase Lactate Dehydrogenase C-Reactive Protein Total Protein Albumin Arterial Blood Glucose Coronavirus (PCR) 05/17/21 05/17/21 05/17/21 06:20 11:06 16:36 WBC MCV MCH MCHC RDW Lymph % (Auto) [place] % (Auto) Eos % (Auto) Lymph # (Auto) [place] # (Auto) Eos # (Auto) Baso # (Auto) Seg Neutrophils % Seg Neuts % (Manual) Lymphocytes % (Manual) Seg Neutrophils # Seg Neutrophils # Man Lymphocytes # (Manual) D-Dimer ABG pH POC ABG pCO2 POC ABG pO2 ABG pO2 ABG HCO3 ABG O2 Saturation ABG Base Excess ABG Oxyhemoglobin ABG Sodium ABG Chloride ABG Glucose Oxyhemoglobin Carboxyhemoglobin Sodium Potassium Chloride Carbon Dioxide 33 H BUN Creatinine 0.2 L Glucose 101 H POC Glucose 209 H 180 H Hemoglobin A1c Magnesium Ferritin AST ALT Alkaline Phosphatase Lactate Dehydrogenase C-Reactive Protein Total Protein Albumin Arterial Blood Glucose Coronavirus (PCR) 05/17/21 05/18/21 05/18/21 21:06 12:00 15:06 WBC MCV MCH MCHC RDW Lymph % (Auto) [place] % (Auto) Eos % (Auto) Lymph # (Auto) [place] # (Auto) Eos # (Auto) Baso # (Auto) Seg Neutrophils % Seg Neuts % (Manual) Lymphocytes % (Manual) Seg Neutrophils # Seg Neutrophils # Man Lymphocytes # (Manual) D-Dimer 874.02 H ABG pH POC ABG pCO2 POC ABG pO2 ABG pO2 ABG HCO3 ABG O2 Saturation ABG Base Excess ABG Oxyhemoglobin ABG Sodium ABG Chloride ABG Glucose Oxyhemoglobin Carboxyhemoglobin Sodium Potassium Chloride Carbon Dioxide BUN Creatinine Glucose POC Glucose 256 H 139 H Hemoglobin A1c Magnesium Ferritin AST ALT Alkaline Phosphatase Lactate Dehydrogenase C-Reactive Protein Total Protein Albumin Arterial Blood Glucose Coronavirus (PCR) 05/18/21 05/18/21 05/18/21 15:06 15:06 16:08 WBC MCV MCH MCHC RDW Lymph % (Auto) [place] % (Auto) Eos % (Auto) Lymph # (Auto) [place] # (Auto) Eos # (Auto) Baso # (Auto) Seg Neutrophils % Seg Neuts % (Manual) Lymphocytes % (Manual) Seg Neutrophils # Seg Neutrophils # Man Lymphocytes # (Manual) D-Dimer ABG pH POC ABG pCO2 POC ABG pO2 ABG pO2 ABG HCO3 ABG O2 Saturation ABG Base Excess ABG Oxyhemoglobin ABG Sodium ABG Chloride ABG Glucose Oxyhemoglobin Carboxyhemoglobin Sodium Potassium Chloride Carbon Dioxide BUN Creatinine Glucose POC Glucose 178 H Hemoglobin A1c Magnesium Ferritin 289.6 H AST ALT Alkaline Phosphatase Lactate Dehydrogenase 605 H C-Reactive Protein Total Protein Albumin Arterial Blood Glucose Coronavirus (PCR) 05/18/21 05/19/21 05/19/21 21:22 11:57 15:26 WBC MCV MCH MCHC RDW Lymph % (Auto) [place] % (Auto) Eos % (Auto) Lymph # (Auto) [place] # (Auto) Eos # (Auto) Baso # (Auto) Seg Neutrophils % Seg Neuts % (Manual) Lymphocytes % (Manual) Seg Neutrophils # Seg Neutrophils # Man Lymphocytes # (Manual) D-Dimer ABG pH POC ABG pCO2 POC ABG pO2 ABG pO2 ABG HCO3 ABG O2 Saturation ABG Base Excess ABG Oxyhemoglobin ABG Sodium ABG Chloride ABG Glucose Oxyhemoglobin Carboxyhemoglobin Sodium Potassium Chloride Carbon Dioxide BUN Creatinine Glucose POC Glucose 241 H 201 H 209 H Hemoglobin A1c Magnesium Ferritin AST ALT Alkaline Phosphatase Lactate Dehydrogenase C-Reactive Protein Total Protein Albumin Arterial Blood Glucose Coronavirus (PCR) 05/19/21 05/20/21 05/20/21 20:59 07:38 08:01 WBC MCV MCH MCHC RDW 19.7 H Lymph % (Auto) 8.3 L [place] % (Auto) Eos % (Auto) Lymph # (Auto) 0.8 L [place] # (Auto) Eos # (Auto) Baso # (Auto) Seg Neutrophils % 88.6 H Seg Neuts % (Manual) Lymphocytes % (Manual) Seg Neutrophils # 8.4 H Seg Neutrophils # Man Lymphocytes # (Manual) D-Dimer ABG pH POC ABG pCO2 POC ABG pO2 ABG pO2 ABG HCO3 ABG O2 Saturation ABG Base Excess ABG Oxyhemoglobin ABG Sodium ABG Chloride ABG Glucose Oxyhemoglobin Carboxyhemoglobin Sodium Potassium Chloride Carbon Dioxide BUN Creatinine Glucose POC Glucose 226 H 130 H Hemoglobin A1c Magnesium Ferritin AST ALT Alkaline Phosphatase Lactate Dehydrogenase C-Reactive Protein Total Protein Albumin Arterial Blood Glucose Coronavirus (PCR) 05/20/21 05/20/21 05/20/21 08:01 11:00 16:43 WBC MCV MCH MCHC RDW Lymph % (Auto) [place] % (Auto) Eos % (Auto) Lymph # (Auto) [place] # (Auto) Eos # (Auto) Baso # (Auto) Seg Neutrophils % Seg Neuts % (Manual) Lymphocytes % (Manual) Seg Neutrophils # Seg Neutrophils # Man Lymphocytes # (Manual) D-Dimer ABG pH POC ABG pCO2 POC ABG pO2 ABG pO2 ABG HCO3 ABG O2 Saturation ABG Base Excess ABG Oxyhemoglobin ABG Sodium ABG Chloride ABG Glucose Oxyhemoglobin Carboxyhemoglobin Sodium Potassium Chloride Carbon Dioxide BUN 18 H Creatinine 0.2 L Glucose 132 H POC Glucose 237 H 240 H Hemoglobin A1c Magnesium Ferritin AST ALT Alkaline Phosphatase Lactate Dehydrogenase C-Reactive Protein Total Protein Albumin Arterial Blood Glucose Coronavirus (PCR) 05/20/21 05/21/21 05/21/21 21:21 07:35 11:32 WBC MCV MCH MCHC RDW Lymph % (Auto) [place] % (Auto) Eos % (Auto) Lymph # (Auto) [place] # (Auto) Eos # (Auto) Baso # (Auto) Seg Neutrophils % Seg Neuts % (Manual) Lymphocytes % (Manual) Seg Neutrophils # Seg Neutrophils # Man Lymphocytes # (Manual) D-Dimer ABG pH POC ABG pCO2 POC ABG pO2 ABG pO2 ABG HCO3 ABG O2 Saturation ABG Base Excess ABG Oxyhemoglobin ABG Sodium ABG Chloride ABG Glucose Oxyhemoglobin Carboxyhemoglobin Sodium Potassium Chloride Carbon Dioxide BUN Creatinine Glucose POC Glucose 241 H 162 H 171 H Hemoglobin A1c Magnesium Ferritin AST ALT Alkaline Phosphatase Lactate Dehydrogenase C-Reactive Protein Total Protein Albumin Arterial Blood Glucose Coronavirus (PCR) 05/21/21 05/21/21 05/22/21 16:22 20:43 05:14 WBC MCV MCH MCHC RDW Lymph % (Auto) [place] % (Auto) Eos % (Auto) Lymph # (Auto) [place] # (Auto) Eos # (Auto) Baso # (Auto) Seg Neutrophils % Seg Neuts % (Manual) Lymphocytes % (Manual) Seg Neutrophils # Seg Neutrophils # Man Lymphocytes # (Manual) D-Dimer ABG pH POC ABG pCO2 POC ABG pO2 ABG pO2 ABG HCO3 ABG O2 Saturation ABG Base Excess ABG Oxyhemoglobin ABG Sodium ABG Chloride ABG Glucose Oxyhemoglobin Carboxyhemoglobin Sodium Potassium Chloride Carbon Dioxide BUN Creatinine Glucose POC Glucose 244 H 299 H 140 H Hemoglobin A1c Magnesium Ferritin AST ALT Alkaline Phosphatase Lactate Dehydrogenase C-Reactive Protein Total Protein Albumin Arterial Blood Glucose Coronavirus (PCR) 05/22/21 05/22/21 05/22/21 08:45 11:54 16:15 WBC MCV MCH MCHC RDW Lymph % (Auto) [place] % (Auto) Eos % (Auto) Lymph # (Auto) [place] # (Auto) Eos # (Auto) Baso # (Auto) Seg Neutrophils % Seg Neuts % (Manual) Lymphocytes % (Manual) Seg Neutrophils # Seg Neutrophils # Man Lymphocytes # (Manual) D-Dimer ABG pH POC ABG pCO2 POC ABG pO2 ABG pO2 ABG HCO3 ABG O2 Saturation ABG Base Excess ABG Oxyhemoglobin ABG Sodium ABG Chloride ABG Glucose Oxyhemoglobin Carboxyhemoglobin Sodium Potassium Chloride Carbon Dioxide BUN Creatinine Glucose POC Glucose 133 H 265 H 221 H Hemoglobin A1c Magnesium Ferritin AST ALT Alkaline Phosphatase Lactate Dehydrogenase C-Reactive Protein Total Protein Albumin Arterial Blood Glucose Coronavirus (PCR) 05/22/21 05/23/21 05/23/21 21:43 08:20 09:50 WBC MCV MCH MCHC RDW Lymph % (Auto) [place] % (Auto) Eos % (Auto) Lymph # (Auto) [place] # (Auto) Eos # (Auto) Baso # (Auto) Seg Neutrophils % Seg Neuts % (Manual) Lymphocytes % (Manual) Seg Neutrophils # Seg Neutrophils # Man Lymphocytes # (Manual) D-Dimer 910.38 H ABG pH POC ABG pCO2 POC ABG pO2 ABG pO2 ABG HCO3 ABG O2 Saturation ABG Base Excess ABG Oxyhemoglobin ABG Sodium ABG Chloride ABG Glucose Oxyhemoglobin Carboxyhemoglobin Sodium Potassium Chloride Carbon Dioxide BUN Creatinine Glucose POC Glucose 262 H 140 H Hemoglobin A1c Magnesium Ferritin AST ALT Alkaline Phosphatase Lactate Dehydrogenase C-Reactive Protein Total Protein Albumin Arterial Blood Glucose Coronavirus (PCR) 05/23/21 05/23/21 05/23/21 09:50 09:50 10:52 WBC MCV MCH MCHC RDW Lymph % (Auto) [place] % (Auto) Eos % (Auto) Lymph # (Auto) [place] # (Auto) Eos # (Auto) Baso # (Auto) Seg Neutrophils % Seg Neuts % (Manual) Lymphocytes % (Manual) Seg Neutrophils # Seg Neutrophils # Man Lymphocytes # (Manual) D-Dimer ABG pH POC ABG pCO2 POC ABG pO2 ABG pO2 ABG HCO3 ABG O2 Saturation ABG Base Excess ABG Oxyhemoglobin ABG Sodium ABG Chloride ABG Glucose Oxyhemoglobin Carboxyhemoglobin Sodium Potassium Chloride Carbon Dioxide BUN Creatinine Glucose POC Glucose 241 H Hemoglobin A1c Magnesium Ferritin 244.9 H AST ALT Alkaline Phosphatase Lactate Dehydrogenase 584 H C-Reactive Protein Total Protein Albumin Arterial Blood Glucose Coronavirus (PCR) 05/23/21 05/23/21 05/24/21 17:24 21:52 07:44 WBC MCV MCH MCHC RDW Lymph % (Auto) [place] % (Auto) Eos % (Auto) Lymph # (Auto) [place] # (Auto) Eos # (Auto) Baso # (Auto) Seg Neutrophils % Seg Neuts % (Manual) Lymphocytes % (Manual) Seg Neutrophils # Seg Neutrophils # Man Lymphocytes # (Manual) D-Dimer ABG pH POC ABG pCO2 POC ABG pO2 ABG pO2 ABG HCO3 ABG O2 Saturation ABG Base Excess ABG Oxyhemoglobin ABG Sodium ABG Chloride ABG Glucose Oxyhemoglobin Carboxyhemoglobin Sodium Potassium Chloride Carbon Dioxide BUN Creatinine Glucose POC Glucose 197 H 289 H 161 H Hemoglobin A1c Magnesium Ferritin AST ALT Alkaline Phosphatase Lactate Dehydrogenase C-Reactive Protein Total Protein Albumin Arterial Blood Glucose Coronavirus (PCR) 05/24/21 05/24/21 05/24/21 11:17 17:51 21:26 WBC MCV MCH MCHC RDW Lymph % (Auto) [place] % (Auto) Eos % (Auto) Lymph # (Auto) [place] # (Auto) Eos # (Auto) Baso # (Auto) Seg Neutrophils % Seg Neuts % (Manual) Lymphocytes % (Manual) Seg Neutrophils # Seg Neutrophils # Man Lymphocytes # (Manual) D-Dimer ABG pH POC ABG pCO2 POC ABG pO2 ABG pO2 ABG HCO3 ABG O2 Saturation ABG Base Excess ABG Oxyhemoglobin ABG Sodium ABG Chloride ABG Glucose Oxyhemoglobin Carboxyhemoglobin Sodium Potassium Chloride Carbon Dioxide BUN Creatinine Glucose POC Glucose 308 H 175 H 198 H Hemoglobin A1c Magnesium Ferritin AST ALT Alkaline Phosphatase Lactate Dehydrogenase C-Reactive Protein Total Protein Albumin Arterial Blood Glucose Coronavirus (PCR) 05/25/21 05/25/21 05/25/21 08:14 11:13 17:13 WBC MCV MCH MCHC RDW Lymph % (Auto) [place] % (Auto) Eos % (Auto) Lymph # (Auto) [place] # (Auto) Eos # (Auto) Baso # (Auto) Seg Neutrophils % Seg Neuts % (Manual) Lymphocytes % (Manual) Seg Neutrophils # Seg Neutrophils # Man Lymphocytes # (Manual) D-Dimer ABG pH POC ABG pCO2 POC ABG pO2 ABG pO2 ABG HCO3 ABG O2 Saturation ABG Base Excess ABG Oxyhemoglobin ABG Sodium ABG Chloride ABG Glucose Oxyhemoglobin Carboxyhemoglobin Sodium Potassium Chloride Carbon Dioxide BUN Creatinine Glucose POC Glucose 203 H 339 H 235 H Hemoglobin A1c Magnesium Ferritin AST ALT Alkaline Phosphatase Lactate Dehydrogenase C-Reactive Protein Total Protein Albumin Arterial Blood Glucose Coronavirus (PCR) 05/25/21 05/26/21 05/26/21 21:03 07:33 11:19 WBC MCV MCH MCHC RDW Lymph % (Auto) [place] % (Auto) Eos % (Auto) Lymph # (Auto) [place] # (Auto) Eos # (Auto) Baso # (Auto) Seg Neutrophils % Seg Neuts % (Manual) Lymphocytes % (Manual) Seg Neutrophils # Seg Neutrophils # Man Lymphocytes # (Manual) D-Dimer ABG pH POC ABG pCO2 POC ABG pO2 ABG pO2 ABG HCO3 ABG O2 Saturation ABG Base Excess ABG Oxyhemoglobin ABG Sodium ABG Chloride ABG Glucose Oxyhemoglobin Carboxyhemoglobin Sodium Potassium Chloride Carbon Dioxide BUN Creatinine Glucose POC Glucose 263 H 156 H 288 H Hemoglobin A1c Magnesium Ferritin AST ALT Alkaline Phosphatase Lactate Dehydrogenase C-Reactive Protein Total Protein Albumin Arterial Blood Glucose Coronavirus (PCR) 05/26/21 05/26/21 05/27/21 16:26 20:55 07:38 WBC MCV MCH MCHC RDW Lymph % (Auto) [place] % (Auto) Eos % (Auto) Lymph # (Auto) [place] # (Auto) Eos # (Auto) Baso # (Auto) Seg Neutrophils % Seg Neuts % (Manual) Lymphocytes % (Manual) Seg Neutrophils # Seg Neutrophils # Man Lymphocytes # (Manual) D-Dimer ABG pH POC ABG pCO2 POC ABG pO2 ABG pO2 ABG HCO3 ABG O2 Saturation ABG Base Excess ABG Oxyhemoglobin ABG Sodium ABG Chloride ABG Glucose Oxyhemoglobin Carboxyhemoglobin Sodium Potassium Chloride Carbon Dioxide BUN Creatinine Glucose POC Glucose 286 H 293 H 115 H Hemoglobin A1c Magnesium Ferritin AST ALT Alkaline Phosphatase Lactate Dehydrogenase C-Reactive Protein Total Protein Albumin Arterial Blood Glucose Coronavirus (PCR) 05/27/21 05/27/21 05/27/21 11:46 15:58 21:02 WBC MCV MCH MCHC RDW Lymph % (Auto) [place] % (Auto) Eos % (Auto) Lymph # (Auto) [place] # (Auto) Eos # (Auto) Baso # (Auto) Seg Neutrophils % Seg Neuts % (Manual) Lymphocytes % (Manual) Seg Neutrophils # Seg Neutrophils # Man Lymphocytes # (Manual) D-Dimer ABG pH POC ABG pCO2 POC ABG pO2 ABG pO2 ABG HCO3 ABG O2 Saturation ABG Base Excess ABG Oxyhemoglobin ABG Sodium ABG Chloride ABG Glucose Oxyhemoglobin Carboxyhemoglobin Sodium Potassium Chloride Carbon Dioxide BUN Creatinine Glucose POC Glucose 260 H 318 H 246 H Hemoglobin A1c Magnesium Ferritin AST ALT Alkaline Phosphatase Lactate Dehydrogenase C-Reactive Protein Total Protein Albumin Arterial Blood Glucose Coronavirus (PCR) 05/28/21 05/28/21 05/28/21 07:34 11:31 16:36 WBC MCV MCH MCHC RDW Lymph % (Auto) [place] % (Auto) Eos % (Auto) Lymph # (Auto) [place] # (Auto) Eos # (Auto) Baso # (Auto) Seg Neutrophils % Seg Neuts % (Manual) Lymphocytes % (Manual) Seg Neutrophils # Seg Neutrophils # Man Lymphocytes # (Manual) D-Dimer ABG pH POC ABG pCO2 POC ABG pO2 ABG pO2 ABG HCO3 ABG O2 Saturation ABG Base Excess ABG Oxyhemoglobin ABG Sodium ABG Chloride ABG Glucose Oxyhemoglobin Carboxyhemoglobin Sodium Potassium Chloride Carbon Dioxide BUN Creatinine Glucose POC Glucose 185 H 297 H 183 H Hemoglobin A1c Magnesium Ferritin AST ALT Alkaline Phosphatase Lactate Dehydrogenase C-Reactive Protein Total Protein Albumin Arterial Blood Glucose Coronavirus (PCR) 05/28/21 05/29/21 05/29/21 21:19 07:34 11:19 WBC MCV MCH MCHC RDW Lymph % (Auto) [place] % (Auto) Eos % (Auto) Lymph # (Auto) [place] # (Auto) Eos # (Auto) Baso # (Auto) Seg Neutrophils % Seg Neuts % (Manual) Lymphocytes % (Manual) Seg Neutrophils # Seg Neutrophils # Man Lymphocytes # (Manual) D-Dimer ABG pH POC ABG pCO2 POC ABG pO2 ABG pO2 ABG HCO3 ABG O2 Saturation ABG Base Excess ABG Oxyhemoglobin ABG Sodium ABG Chloride ABG Glucose Oxyhemoglobin Carboxyhemoglobin Sodium Potassium Chloride Carbon Dioxide BUN Creatinine Glucose POC Glucose 274 H 139 H 293 H Hemoglobin A1c Magnesium Ferritin AST ALT Alkaline Phosphatase Lactate Dehydrogenase C-Reactive Protein Total Protein Albumin Arterial Blood Glucose Coronavirus (PCR) 05/29/21 05/29/21 05/30/21 16:36 22:44 05:55 WBC MCV MCH MCHC RDW 21.3 H Lymph % (Auto) 8.0 L [place] % (Auto) Eos % (Auto) Lymph # (Auto) 0.6 L [place] # (Auto) Eos # (Auto) Baso # (Auto) Seg Neutrophils % 88.6 H Seg Neuts % (Manual) Lymphocytes % (Manual) Seg Neutrophils # Seg Neutrophils # Man Lymphocytes # (Manual) D-Dimer ABG pH POC ABG pCO2 POC ABG pO2 ABG pO2 ABG HCO3 ABG O2 Saturation ABG Base Excess ABG Oxyhemoglobin ABG Sodium ABG Chloride ABG Glucose Oxyhemoglobin Carboxyhemoglobin Sodium Potassium Chloride Carbon Dioxide BUN Creatinine Glucose POC Glucose 299 H 160 H Hemoglobin A1c Magnesium Ferritin AST ALT Alkaline Phosphatase Lactate Dehydrogenase C-Reactive Protein Total Protein Albumin Arterial Blood Glucose Coronavirus (PCR) 05/30/21 05/30/21 05/30/21 05:55 08:04 11:13 WBC MCV MCH MCHC RDW Lymph % (Auto) [place] % (Auto) Eos % (Auto) Lymph # (Auto) [place] # (Auto) Eos # (Auto) Baso # (Auto) Seg Neutrophils % Seg Neuts % (Manual) Lymphocytes % (Manual) Seg Neutrophils # Seg Neutrophils # Man Lymphocytes # (Manual) D-Dimer ABG pH POC ABG pCO2 POC ABG pO2 ABG pO2 ABG HCO3 ABG O2 Saturation ABG Base Excess ABG Oxyhemoglobin ABG Sodium ABG Chloride ABG Glucose Oxyhemoglobin Carboxyhemoglobin Sodium Potassium Chloride Carbon Dioxide BUN 19 H Creatinine 0.2 L Glucose 209 H POC Glucose 157 H 275 H Hemoglobin A1c Magnesium Ferritin AST ALT Alkaline Phosphatase Lactate Dehydrogenase C-Reactive Protein Total Protein Albumin Arterial Blood Glucose Coronavirus (PCR) 05/30/21 05/30/21 05/31/21 17:08 22:12 07:36 WBC MCV MCH MCHC RDW Lymph % (Auto) [place] % (Auto) Eos % (Auto) Lymph # (Auto) [place] # (Auto) Eos # (Auto) Baso # (Auto) Seg Neutrophils % Seg Neuts % (Manual) Lymphocytes % (Manual) Seg Neutrophils # Seg Neutrophils # Man Lymphocytes # (Manual) D-Dimer ABG pH POC ABG pCO2 POC ABG pO2 ABG pO2 ABG HCO3 ABG O2 Saturation ABG Base Excess ABG Oxyhemoglobin ABG Sodium ABG Chloride ABG Glucose Oxyhemoglobin Carboxyhemoglobin Sodium Potassium Chloride Carbon Dioxide BUN Creatinine Glucose POC Glucose 154 H 275 H 138 H Hemoglobin A1c Magnesium Ferritin AST ALT Alkaline Phosphatase Lactate Dehydrogenase C-Reactive Protein Total Protein Albumin Arterial Blood Glucose Coronavirus (PCR) 05/31/21 05/31/21 05/31/21 11:17 16:55 21:25 WBC MCV MCH MCHC RDW Lymph % (Auto) [place] % (Auto) Eos % (Auto) Lymph # (Auto) [place] # (Auto) Eos # (Auto) Baso # (Auto) Seg Neutrophils % Seg Neuts % (Manual) Lymphocytes % (Manual) Seg Neutrophils # Seg Neutrophils # Man Lymphocytes # (Manual) D-Dimer ABG pH POC ABG pCO2 POC ABG pO2 ABG pO2 ABG HCO3 ABG O2 Saturation ABG Base Excess ABG Oxyhemoglobin ABG Sodium ABG Chloride ABG Glucose Oxyhemoglobin Carboxyhemoglobin Sodium Potassium Chloride Carbon Dioxide BUN Creatinine Glucose POC Glucose 258 H 215 H 318 H Hemoglobin A1c Magnesium Ferritin AST ALT Alkaline Phosphatase Lactate Dehydrogenase C-Reactive Protein Total Protein Albumin Arterial Blood Glucose Coronavirus (PCR) 06/01/21 06/01/21 06/01/21 07:23 11:38 16:52 WBC MCV MCH MCHC RDW Lymph % (Auto) [place] % (Auto) Eos % (Auto) Lymph # (Auto) [place] # (Auto) Eos # (Auto) Baso # (Auto) Seg Neutrophils % Seg Neuts % (Manual) Lymphocytes % (Manual) Seg Neutrophils # Seg Neutrophils # Man Lymphocytes # (Manual) D-Dimer ABG pH POC ABG pCO2 POC ABG pO2 ABG pO2 ABG HCO3 ABG O2 Saturation ABG Base Excess ABG Oxyhemoglobin ABG Sodium ABG Chloride ABG Glucose Oxyhemoglobin Carboxyhemoglobin Sodium Potassium Chloride Carbon Dioxide BUN Creatinine Glucose POC Glucose 157 H 259 H 150 H Hemoglobin A1c Magnesium Ferritin AST ALT Alkaline Phosphatase Lactate Dehydrogenase C-Reactive Protein Total Protein Albumin Arterial Blood Glucose Coronavirus (PCR) 06/01/21 06/02/21 06/02/21 23:16 05:34 05:34 WBC MCV MCH MCHC RDW 21.3 H Lymph % (Auto) 9.6 L [place] % (Auto) Eos % (Auto) Lymph # (Auto) 0.6 L [place] # (Auto) Eos # (Auto) Baso # (Auto) Seg Neutrophils % 86.2 H Seg Neuts % (Manual) Lymphocytes % (Manual) Seg Neutrophils # Seg Neutrophils # Man Lymphocytes # (Manual) D-Dimer ABG pH POC ABG pCO2 POC ABG pO2 ABG pO2 ABG HCO3 ABG O2 Saturation ABG Base Excess ABG Oxyhemoglobin ABG Sodium ABG Chloride ABG Glucose Oxyhemoglobin Carboxyhemoglobin Sodium 136 L Potassium Chloride Carbon Dioxide BUN Creatinine 0.2 L Glucose 186 H POC Glucose 247 H Hemoglobin A1c Magnesium Ferritin AST ALT 69 H Alkaline Phosphatase Lactate Dehydrogenase C-Reactive Protein Total Protein 6.1 L Albumin 3.2 L Arterial Blood Glucose Coronavirus (PCR) 06/02/21 06/02/21 06/02/21 11:25 18:23 21:32 WBC MCV MCH MCHC RDW Lymph % (Auto) [place] % (Auto) Eos % (Auto) Lymph # (Auto) [place] # (Auto) Eos # (Auto) Baso # (Auto) Seg Neutrophils % Seg Neuts % (Manual) Lymphocytes % (Manual) Seg Neutrophils # Seg Neutrophils # Man Lymphocytes # (Manual) D-Dimer ABG pH POC ABG pCO2 POC ABG pO2 ABG pO2 ABG HCO3 ABG O2 Saturation ABG Base Excess ABG Oxyhemoglobin ABG Sodium ABG Chloride ABG Glucose Oxyhemoglobin Carboxyhemoglobin Sodium Potassium Chloride Carbon Dioxide BUN Creatinine Glucose POC Glucose 157 H 299 H 246 H Hemoglobin A1c Magnesium Ferritin AST ALT Alkaline Phosphatase Lactate Dehydrogenase C-Reactive Protein Total Protein Albumin Arterial Blood Glucose Coronavirus (PCR) 06/03/21 06/03/21 06/03/21 08:12 12:21 17:31 WBC MCV MCH MCHC RDW Lymph % (Auto) [place] % (Auto) Eos % (Auto) Lymph # (Auto) [place] # (Auto) Eos # (Auto) Baso # (Auto) Seg Neutrophils % Seg Neuts % (Manual) Lymphocytes % (Manual) Seg Neutrophils # Seg Neutrophils # Man Lymphocytes # (Manual) D-Dimer ABG pH POC ABG pCO2 POC ABG pO2 ABG pO2 ABG HCO3 ABG O2 Saturation ABG Base Excess ABG Oxyhemoglobin ABG Sodium ABG Chloride ABG Glucose Oxyhemoglobin Carboxyhemoglobin Sodium Potassium Chloride Carbon Dioxide BUN Creatinine Glucose POC Glucose 153 H 302 H 252 H Hemoglobin A1c Magnesium Ferritin AST ALT Alkaline Phosphatase Lactate Dehydrogenase C-Reactive Protein Total Protein Albumin Arterial Blood Glucose Coronavirus (PCR) 06/03/21 06/04/21 06/04/21 22:08 11:12 16:01 WBC MCV MCH MCHC RDW Lymph % (Auto) [place] % (Auto) Eos % (Auto) Lymph # (Auto) [place] # (Auto) Eos # (Auto) Baso # (Auto) Seg Neutrophils % Seg Neuts % (Manual) Lymphocytes % (Manual) Seg Neutrophils # Seg Neutrophils # Man Lymphocytes # (Manual) D-Dimer ABG pH POC ABG pCO2 POC ABG pO2 ABG pO2 ABG HCO3 ABG O2 Saturation ABG Base Excess ABG Oxyhemoglobin ABG Sodium ABG Chloride ABG Glucose Oxyhemoglobin Carboxyhemoglobin Sodium Potassium Chloride Carbon Dioxide BUN Creatinine Glucose POC Glucose 224 H 259 H 238 H Hemoglobin A1c Magnesium Ferritin AST ALT Alkaline Phosphatase Lactate Dehydrogenase C-Reactive Protein Total Protein Albumin Arterial Blood Glucose Coronavirus (PCR) 06/04/21 06/05/21 06/05/21 21:26 05:26 05:26 WBC MCV MCH MCHC RDW Lymph % (Auto) [place] % (Auto) Eos % (Auto) Lymph # (Auto) [place] # (Auto) Eos # (Auto) Baso # (Auto) Seg Neutrophils % Seg Neuts % (Manual) Lymphocytes % (Manual) Seg Neutrophils # Seg Neutrophils # Man Lymphocytes # (Manual) D-Dimer 488.49 H ABG pH POC ABG pCO2 POC ABG pO2 ABG pO2 ABG HCO3 ABG O2 Saturation ABG Base Excess ABG Oxyhemoglobin ABG Sodium ABG Chloride ABG Glucose Oxyhemoglobin Carboxyhemoglobin Sodium Potassium Chloride Carbon Dioxide BUN Creatinine 0.2 L Glucose 198 H POC Glucose 257 H Hemoglobin A1c Magnesium Ferritin AST ALT Alkaline Phosphatase Lactate Dehydrogenase 475 H C-Reactive Protein Total Protein Albumin Arterial Blood Glucose Coronavirus (PCR) 06/05/21 06/05/21 06/05/21 07:20 08:30 11:00 WBC MCV MCH MCHC RDW Lymph % (Auto) [place] % (Auto) Eos % (Auto) Lymph # (Auto) [place] # (Auto) Eos # (Auto) Baso # (Auto) Seg Neutrophils % Seg Neuts % (Manual) Lymphocytes % (Manual) Seg Neutrophils # Seg Neutrophils # Man Lymphocytes # (Manual) D-Dimer ABG pH POC ABG pCO2 POC ABG pO2 ABG pO2 ABG HCO3 ABG O2 Saturation ABG Base Excess ABG Oxyhemoglobin ABG Sodium ABG Chloride ABG Glucose Oxyhemoglobin Carboxyhemoglobin Sodium Potassium Chloride Carbon Dioxide BUN Creatinine Glucose POC Glucose 146 H 246 H Hemoglobin A1c Magnesium Ferritin AST ALT Alkaline Phosphatase Lactate Dehydrogenase C-Reactive Protein Total Protein Albumin Arterial Blood Glucose Coronavirus (PCR) Positive A 06/05/21 06/05/21 06/06/21 16:50 22:30 07:57 WBC MCV MCH MCHC RDW Lymph % (Auto) [place] % (Auto) Eos % (Auto) Lymph # (Auto) [place] # (Auto) Eos # (Auto) Baso # (Auto) Seg Neutrophils % Seg Neuts % (Manual) Lymphocytes % (Manual) Seg Neutrophils # Seg Neutrophils # Man Lymphocytes # (Manual) D-Dimer ABG pH POC ABG pCO2 POC ABG pO2 ABG pO2 ABG HCO3 ABG O2 Saturation ABG Base Excess ABG Oxyhemoglobin ABG Sodium ABG Chloride ABG Glucose Oxyhemoglobin Carboxyhemoglobin Sodium Potassium Chloride Carbon Dioxide BUN Creatinine Glucose POC Glucose 240 H 174 H 120 H Hemoglobin A1c Magnesium Ferritin AST ALT Alkaline Phosphatase Lactate Dehydrogenase C-Reactive Protein Total Protein Albumin Arterial Blood Glucose Coronavirus (PCR) 06/06/21 06/06/21 06/06/21 11:14 16:50 21:11 WBC MCV MCH MCHC RDW Lymph % (Auto) [place] % (Auto) Eos % (Auto) Lymph # (Auto) [place] # (Auto) Eos # (Auto) Baso # (Auto) Seg Neutrophils % Seg Neuts % (Manual) Lymphocytes % (Manual) Seg Neutrophils # Seg Neutrophils # Man Lymphocytes # (Manual) D-Dimer ABG pH POC ABG pCO2 POC ABG pO2 ABG pO2 ABG HCO3 ABG O2 Saturation ABG Base Excess ABG Oxyhemoglobin ABG Sodium ABG Chloride ABG Glucose Oxyhemoglobin Carboxyhemoglobin Sodium Potassium Chloride Carbon Dioxide BUN Creatinine Glucose POC Glucose 267 H 218 H 124 H Hemoglobin A1c Magnesium Ferritin AST ALT Alkaline Phosphatase Lactate Dehydrogenase C-Reactive Protein Total Protein Albumin Arterial Blood Glucose Coronavirus (PCR) 06/07/21 06/07/21 06/08/21 11:58 15:59 07:59 WBC MCV MCH MCHC RDW Lymph % (Auto) [place] % (Auto) Eos % (Auto) Lymph # (Auto) [place] # (Auto) Eos # (Auto) Baso # (Auto) Seg Neutrophils % Seg Neuts % (Manual) Lymphocytes % (Manual) Seg Neutrophils # Seg Neutrophils # Man Lymphocytes # (Manual) D-Dimer ABG pH POC ABG pCO2 POC ABG pO2 ABG pO2 ABG HCO3 ABG O2 Saturation ABG Base Excess ABG Oxyhemoglobin ABG Sodium ABG Chloride ABG Glucose Oxyhemoglobin Carboxyhemoglobin Sodium Potassium Chloride Carbon Dioxide BUN Creatinine Glucose POC Glucose 219 H 208 H 192 H Hemoglobin A1c Magnesium Ferritin AST ALT Alkaline Phosphatase Lactate Dehydrogenase C-Reactive Protein Total Protein Albumin Arterial Blood Glucose Coronavirus (PCR) 06/08/21 06/08/21 06/09/21 11:26 23:28 07:33 WBC MCV MCH MCHC RDW Lymph % (Auto) [place] % (Auto) Eos % (Auto) Lymph # (Auto) [place] # (Auto) Eos # (Auto) Baso # (Auto) Seg Neutrophils % Seg Neuts % (Manual) Lymphocytes % (Manual) Seg Neutrophils # Seg Neutrophils # Man Lymphocytes # (Manual) D-Dimer ABG pH POC ABG pCO2 POC ABG pO2 ABG pO2 ABG HCO3 ABG O2 Saturation ABG Base Excess ABG Oxyhemoglobin ABG Sodium ABG Chloride ABG Glucose Oxyhemoglobin Carboxyhemoglobin Sodium Potassium Chloride Carbon Dioxide BUN Creatinine Glucose POC Glucose 307 H 138 H 145 H Hemoglobin A1c Magnesium Ferritin AST ALT Alkaline Phosphatase Lactate Dehydrogenase C-Reactive Protein Total Protein Albumin Arterial Blood Glucose Coronavirus (PCR) 06/09/21 06/09/21 06/09/21 11:01 15:47 21:43 WBC MCV MCH MCHC RDW Lymph % (Auto) [place] % (Auto) Eos % (Auto) Lymph # (Auto) [place] # (Auto) Eos # (Auto) Baso # (Auto) Seg Neutrophils % Seg Neuts % (Manual) Lymphocytes % (Manual) Seg Neutrophils # Seg Neutrophils # Man Lymphocytes # (Manual) D-Dimer ABG pH POC ABG pCO2 POC ABG pO2 ABG pO2 ABG HCO3 ABG O2 Saturation ABG Base Excess ABG Oxyhemoglobin ABG Sodium ABG Chloride ABG Glucose Oxyhemoglobin Carboxyhemoglobin Sodium Potassium Chloride Carbon Dioxide BUN Creatinine Glucose POC Glucose 266 H 305 H 223 H Hemoglobin A1c Magnesium Ferritin AST ALT Alkaline Phosphatase Lactate Dehydrogenase C-Reactive Protein Total Protein Albumin Arterial Blood Glucose Coronavirus (PCR) 06/10/21 06/10/21 06/10/21 08:27 12:10 17:45 WBC MCV MCH MCHC RDW Lymph % (Auto) [place] % (Auto) Eos % (Auto) Lymph # (Auto) [place] # (Auto) Eos # (Auto) Baso # (Auto) Seg Neutrophils % Seg Neuts % (Manual) Lymphocytes % (Manual) Seg Neutrophils # Seg Neutrophils # Man Lymphocytes # (Manual) D-Dimer ABG pH POC ABG pCO2 POC ABG pO2 ABG pO2 ABG HCO3 ABG O2 Saturation ABG Base Excess ABG Oxyhemoglobin ABG Sodium ABG Chloride ABG Glucose Oxyhemoglobin Carboxyhemoglobin Sodium Potassium Chloride Carbon Dioxide BUN Creatinine Glucose POC Glucose 174 H 306 H 210 H Hemoglobin A1c Magnesium Ferritin AST ALT Alkaline Phosphatase Lactate Dehydrogenase C-Reactive Protein Total Protein Albumin Arterial Blood Glucose Coronavirus (PCR) 06/10/21 06/11/21 06/11/21 21:45 09:38 09:38 WBC MCV MCH MCHC RDW 20.9 H Lymph % (Auto) [place] % (Auto) Eos % (Auto) Lymph # (Auto) [place] # (Auto) Eos # (Auto) Baso # (Auto) Seg Neutrophils % Seg Neuts % (Manual) Lymphocytes % (Manual) Seg Neutrophils # Seg Neutrophils # Man Lymphocytes # (Manual) D-Dimer ABG pH POC ABG pCO2 POC ABG pO2 ABG pO2 ABG HCO3 ABG O2 Saturation ABG Base Excess ABG Oxyhemoglobin ABG Sodium ABG Chloride ABG Glucose Oxyhemoglobin Carboxyhemoglobin Sodium 135 L Potassium Chloride 90.8 L Carbon Dioxide 36 H BUN 29 H Creatinine 0.2 L Glucose 258 H POC Glucose 262 H Hemoglobin A1c Magnesium Ferritin AST ALT Alkaline Phosphatase Lactate Dehydrogenase C-Reactive Protein Total Protein Albumin Arterial Blood Glucose Coronavirus (PCR) 06/11/21 06/11/21 06/11/21 11:20 15:49 22:57 WBC MCV MCH MCHC RDW Lymph % (Auto) [place] % (Auto) Eos % (Auto) Lymph # (Auto) [place] # (Auto) Eos # (Auto) Baso # (Auto) Seg Neutrophils % Seg Neuts % (Manual) Lymphocytes % (Manual) Seg Neutrophils # Seg Neutrophils # Man Lymphocytes # (Manual) D-Dimer ABG pH POC ABG pCO2 POC ABG pO2 ABG pO2 ABG HCO3 ABG O2 Saturation ABG Base Excess ABG Oxyhemoglobin ABG Sodium ABG Chloride ABG Glucose Oxyhemoglobin Carboxyhemoglobin Sodium Potassium Chloride Carbon Dioxide BUN Creatinine Glucose POC Glucose 269 H 206 H 211 H Hemoglobin A1c Magnesium Ferritin AST ALT Alkaline Phosphatase Lactate Dehydrogenase C-Reactive Protein Total Protein Albumin Arterial Blood Glucose Coronavirus (PCR) 06/12/21 06/12/21 06/12/21 08:07 11:24 18:08 WBC MCV MCH MCHC RDW Lymph % (Auto) [place] % (Auto) Eos % (Auto) Lymph # (Auto) [place] # (Auto) Eos # (Auto) Baso # (Auto) Seg Neutrophils % Seg Neuts % (Manual) Lymphocytes % (Manual) Seg Neutrophils # Seg Neutrophils # Man Lymphocytes # (Manual) D-Dimer ABG pH POC ABG pCO2 POC ABG pO2 ABG pO2 ABG HCO3 ABG O2 Saturation ABG Base Excess ABG Oxyhemoglobin ABG Sodium ABG Chloride ABG Glucose Oxyhemoglobin Carboxyhemoglobin Sodium Potassium Chloride Carbon Dioxide BUN Creatinine Glucose POC Glucose 149 H 270 H 166 H Hemoglobin A1c Magnesium Ferritin AST ALT Alkaline Phosphatase Lactate Dehydrogenase C-Reactive Protein Total Protein Albumin Arterial Blood Glucose Coronavirus (PCR) 06/12/21 06/13/21 06/13/21 20:22 07:50 11:18 WBC MCV MCH MCHC RDW Lymph % (Auto) [place] % (Auto) Eos % (Auto) Lymph # (Auto) [place] # (Auto) Eos # (Auto) Baso # (Auto) Seg Neutrophils % Seg Neuts % (Manual) Lymphocytes % (Manual) Seg Neutrophils # Seg Neutrophils # Man Lymphocytes # (Manual) D-Dimer ABG pH POC ABG pCO2 POC ABG pO2 ABG pO2 ABG HCO3 ABG O2 Saturation ABG Base Excess ABG Oxyhemoglobin ABG Sodium ABG Chloride ABG Glucose Oxyhemoglobin Carboxyhemoglobin Sodium Potassium Chloride Carbon Dioxide BUN Creatinine Glucose POC Glucose 155 H 163 H 293 H Hemoglobin A1c Magnesium Ferritin AST ALT Alkaline Phosphatase Lactate Dehydrogenase C-Reactive Protein Total Protein Albumin Arterial Blood Glucose Coronavirus (PCR) 06/13/21 06/13/21 06/14/21 16:41 21:00 07:41 WBC MCV MCH MCHC RDW Lymph % (Auto) [place] % (Auto) Eos % (Auto) Lymph # (Auto) [place] # (Auto) Eos # (Auto) Baso # (Auto) Seg Neutrophils % Seg Neuts % (Manual) Lymphocytes % (Manual) Seg Neutrophils # Seg Neutrophils # Man Lymphocytes # (Manual) D-Dimer ABG pH POC ABG pCO2 POC ABG pO2 ABG pO2 ABG HCO3 ABG O2 Saturation ABG Base Excess ABG Oxyhemoglobin ABG Sodium ABG Chloride ABG Glucose Oxyhemoglobin Carboxyhemoglobin Sodium Potassium Chloride Carbon Dioxide BUN Creatinine Glucose POC Glucose 232 H 183 H 52 L Hemoglobin A1c Magnesium Ferritin AST ALT Alkaline Phosphatase Lactate Dehydrogenase C-Reactive Protein Total Protein Albumin Arterial Blood Glucose Coronavirus (PCR) 06/14/21 06/14/21 06/14/21 11:44 17:44 21:44 WBC MCV MCH MCHC RDW Lymph % (Auto) [place] % (Auto) Eos % (Auto) Lymph # (Auto) [place] # (Auto) Eos # (Auto) Baso # (Auto) Seg Neutrophils % Seg Neuts % (Manual) Lymphocytes % (Manual) Seg Neutrophils # Seg Neutrophils # Man Lymphocytes # (Manual) D-Dimer ABG pH POC ABG pCO2 POC ABG pO2 ABG pO2 ABG HCO3 ABG O2 Saturation ABG Base Excess ABG Oxyhemoglobin ABG Sodium ABG Chloride ABG Glucose Oxyhemoglobin Carboxyhemoglobin Sodium Potassium Chloride Carbon Dioxide BUN Creatinine Glucose POC Glucose 205 H 293 H 288 H Hemoglobin A1c Magnesium Ferritin AST ALT Alkaline Phosphatase Lactate Dehydrogenase C-Reactive Protein Total Protein Albumin Arterial Blood Glucose Coronavirus (PCR) 06/15/21 06/15/21 06/15/21 08:00 08:00 11:40 WBC MCV MCH 33 H MCHC 35 H RDW 20.3 H Lymph % (Auto) [place] % (Auto) Eos % (Auto) Lymph # (Auto) [place] # (Auto) Eos # (Auto) Baso # (Auto) Seg Neutrophils % Seg Neuts % (Manual) Lymphocytes % (Manual) Seg Neutrophils # Seg Neutrophils # Man Lymphocytes # (Manual) D-Dimer ABG pH POC ABG pCO2 POC ABG pO2 ABG pO2 ABG HCO3 ABG O2 Saturation ABG Base Excess ABG Oxyhemoglobin ABG Sodium ABG Chloride ABG Glucose Oxyhemoglobin Carboxyhemoglobin Sodium Potassium 3.2 L Chloride 95.3 L Carbon Dioxide 32 H BUN 23 H Creatinine 0.2 L Glucose 103 H POC Glucose 204 H Hemoglobin A1c Magnesium Ferritin AST ALT Alkaline Phosphatase Lactate Dehydrogenase C-Reactive Protein Total Protein Albumin Arterial Blood Glucose Coronavirus (PCR) 06/15/21 06/15/21 06/16/21 16:17 22:00 11:43 WBC MCV MCH MCHC RDW Lymph % (Auto) [place] % (Auto) Eos % (Auto) Lymph # (Auto) [place] # (Auto) Eos # (Auto) Baso # (Auto) Seg Neutrophils % Seg Neuts % (Manual) Lymphocytes % (Manual) Seg Neutrophils # Seg Neutrophils # Man Lymphocytes # (Manual) D-Dimer ABG pH POC ABG pCO2 POC ABG pO2 ABG pO2 ABG HCO3 ABG O2 Saturation ABG Base Excess ABG Oxyhemoglobin ABG Sodium ABG Chloride ABG Glucose Oxyhemoglobin Carboxyhemoglobin Sodium Potassium Chloride Carbon Dioxide BUN Creatinine Glucose POC Glucose 295 H 233 H 201 H Hemoglobin A1c Magnesium Ferritin AST ALT Alkaline Phosphatase Lactate Dehydrogenase C-Reactive Protein Total Protein Albumin Arterial Blood Glucose Coronavirus (PCR) 06/16/21 06/16/21 06/17/21 17:21 21:27 07:12 WBC MCV MCH MCHC RDW Lymph % (Auto) [place] % (Auto) Eos % (Auto) Lymph # (Auto) [place] # (Auto) Eos # (Auto) Baso # (Auto) Seg Neutrophils % Seg Neuts % (Manual) Lymphocytes % (Manual) Seg Neutrophils # Seg Neutrophils # Man Lymphocytes # (Manual) D-Dimer ABG pH POC ABG pCO2 POC ABG pO2 ABG pO2 ABG HCO3 ABG O2 Saturation ABG Base Excess ABG Oxyhemoglobin ABG Sodium ABG Chloride ABG Glucose Oxyhemoglobin Carboxyhemoglobin Sodium Potassium Chloride Carbon Dioxide BUN Creatinine Glucose POC Glucose 299 H 290 H 67 L Hemoglobin A1c Magnesium Ferritin AST ALT Alkaline Phosphatase Lactate Dehydrogenase C-Reactive Protein Total Protein Albumin Arterial Blood Glucose Coronavirus (PCR) 06/17/21 06/17/21 06/17/21 11:53 17:02 22:25 WBC MCV MCH MCHC RDW Lymph % (Auto) [place] % (Auto) Eos % (Auto) Lymph # (Auto) [place] # (Auto) Eos # (Auto) Baso # (Auto) Seg Neutrophils % Seg Neuts % (Manual) Lymphocytes % (Manual) Seg Neutrophils # Seg Neutrophils # Man Lymphocytes # (Manual) D-Dimer ABG pH POC ABG pCO2 POC ABG pO2 ABG pO2 ABG HCO3 ABG O2 Saturation ABG Base Excess ABG Oxyhemoglobin ABG Sodium ABG Chloride ABG Glucose Oxyhemoglobin Carboxyhemoglobin Sodium Potassium Chloride Carbon Dioxide BUN Creatinine Glucose POC Glucose 199 H 362 H 235 H Hemoglobin A1c Magnesium Ferritin AST ALT Alkaline Phosphatase Lactate Dehydrogenase C-Reactive Protein Total Protein Albumin Arterial Blood Glucose Coronavirus (PCR) 06/18/21 06/18/21 06/18/21 08:00 11:48 16:40 WBC MCV MCH MCHC RDW Lymph % (Auto) [place] % (Auto) Eos % (Auto) Lymph # (Auto) [place] # (Auto) Eos # (Auto) Baso # (Auto) Seg Neutrophils % Seg Neuts % (Manual) Lymphocytes % (Manual) Seg Neutrophils # Seg Neutrophils # Man Lymphocytes # (Manual) D-Dimer ABG pH POC ABG pCO2 POC ABG pO2 ABG pO2 ABG HCO3 ABG O2 Saturation ABG Base Excess ABG Oxyhemoglobin ABG Sodium ABG Chloride ABG Glucose Oxyhemoglobin Carboxyhemoglobin Sodium Potassium Chloride Carbon Dioxide BUN Creatinine Glucose POC Glucose 62 L 211 H 305 H Hemoglobin A1c Magnesium Ferritin AST ALT Alkaline Phosphatase Lactate Dehydrogenase C-Reactive Protein Total Protein Albumin Arterial Blood Glucose Coronavirus (PCR) 06/18/21 06/19/21 06/19/21 21:26 07:27 11:32 WBC MCV MCH MCHC RDW Lymph % (Auto) [place] % (Auto) Eos % (Auto) Lymph # (Auto) [place] # (Auto) Eos # (Auto) Baso # (Auto) Seg Neutrophils % Seg Neuts % (Manual) Lymphocytes % (Manual) Seg Neutrophils # Seg Neutrophils # Man Lymphocytes # (Manual) D-Dimer ABG pH POC ABG pCO2 POC ABG pO2 ABG pO2 ABG HCO3 ABG O2 Saturation ABG Base Excess ABG Oxyhemoglobin ABG Sodium ABG Chloride ABG Glucose Oxyhemoglobin Carboxyhemoglobin Sodium Potassium Chloride Carbon Dioxide BUN Creatinine Glucose POC Glucose 149 H 60 L 208 H Hemoglobin A1c Magnesium Ferritin AST ALT Alkaline Phosphatase Lactate Dehydrogenase C-Reactive Protein Total Protein Albumin Arterial Blood Glucose Coronavirus (PCR) 06/19/21 06/19/21 06/20/21 16:06 22:28 07:48 WBC MCV MCH MCHC RDW Lymph % (Auto) [place] % (Auto) Eos % (Auto) Lymph # (Auto) [place] # (Auto) Eos # (Auto) Baso # (Auto) Seg Neutrophils % Seg Neuts % (Manual) Lymphocytes % (Manual) Seg Neutrophils # Seg Neutrophils # Man Lymphocytes # (Manual) D-Dimer ABG pH POC ABG pCO2 POC ABG pO2 ABG pO2 ABG HCO3 ABG O2 Saturation ABG Base Excess ABG Oxyhemoglobin ABG Sodium ABG Chloride ABG Glucose Oxyhemoglobin Carboxyhemoglobin Sodium Potassium Chloride Carbon Dioxide BUN Creatinine Glucose POC Glucose 266 H 166 H 58 L Hemoglobin A1c Magnesium Ferritin AST ALT Alkaline Phosphatase Lactate Dehydrogenase C-Reactive Protein Total Protein Albumin Arterial Blood Glucose Coronavirus (PCR) 06/20/21 06/20/21 06/20/21 09:09 11:04 16:01 WBC MCV MCH MCHC RDW Lymph % (Auto) [place] % (Auto) Eos % (Auto) Lymph # (Auto) [place] # (Auto) Eos # (Auto) Baso # (Auto) Seg Neutrophils % Seg Neuts % (Manual) Lymphocytes % (Manual) Seg Neutrophils # Seg Neutrophils # Man Lymphocytes # (Manual) D-Dimer ABG pH POC ABG pCO2 POC ABG pO2 ABG pO2 ABG HCO3 ABG O2 Saturation ABG Base Excess ABG Oxyhemoglobin ABG Sodium ABG Chloride ABG Glucose Oxyhemoglobin Carboxyhemoglobin Sodium Potassium Chloride Carbon Dioxide BUN Creatinine Glucose POC Glucose 146 H 225 H 330 H Hemoglobin A1c Magnesium Ferritin AST ALT Alkaline Phosphatase Lactate Dehydrogenase C-Reactive Protein Total Protein Albumin Arterial Blood Glucose Coronavirus (PCR) 06/20/21 06/21/21 06/21/21 20:46 06:45 06:45 WBC MCV MCH MCHC RDW 20.0 H Lymph % (Auto) [place] % (Auto) Eos % (Auto) Lymph # (Auto) [place] # (Auto) Eos # (Auto) Baso # (Auto) Seg Neutrophils % Seg Neuts % (Manual) Lymphocytes % (Manual) Seg Neutrophils # Seg Neutrophils # Man Lymphocytes # (Manual) D-Dimer ABG pH POC ABG pCO2 POC ABG pO2 ABG pO2 ABG HCO3 ABG O2 Saturation ABG Base Excess ABG Oxyhemoglobin ABG Sodium ABG Chloride ABG Glucose Oxyhemoglobin Carboxyhemoglobin Sodium Potassium 2.9 L* Chloride 95.0 L Carbon Dioxide 31 H BUN 23 H Creatinine 0.2 L Glucose 45 L POC Glucose 215 H Hemoglobin A1c Magnesium Ferritin AST ALT Alkaline Phosphatase Lactate Dehydrogenase C-Reactive Protein Total Protein Albumin Arterial Blood Glucose Coronavirus (PCR) 06/21/21 06/21/21 06/21/21 07:38 09:06 12:40 WBC MCV MCH MCHC RDW Lymph % (Auto) [place] % (Auto) Eos % (Auto) Lymph # (Auto) [place] # (Auto) Eos # (Auto) Baso # (Auto) Seg Neutrophils % Seg Neuts % (Manual) Lymphocytes % (Manual) Seg Neutrophils # Seg Neutrophils # Man Lymphocytes # (Manual) D-Dimer ABG pH POC ABG pCO2 POC ABG pO2 ABG pO2 ABG HCO3 ABG O2 Saturation ABG Base Excess ABG Oxyhemoglobin ABG Sodium ABG Chloride ABG Glucose Oxyhemoglobin Carboxyhemoglobin Sodium Potassium Chloride Carbon Dioxide BUN Creatinine Glucose POC Glucose 50 L 196 H 205 H Hemoglobin A1c Magnesium Ferritin AST ALT Alkaline Phosphatase Lactate Dehydrogenase C-Reactive Protein Total Protein Albumin Arterial Blood Glucose Coronavirus (PCR) 06/21/21 06/22/21 06/22/21 21:36 06:25 07:15 WBC MCV MCH MCHC RDW Lymph % (Auto) [place] % (Auto) Eos % (Auto) Lymph # (Auto) [place] # (Auto) Eos # (Auto) Baso # (Auto) Seg Neutrophils % Seg Neuts % (Manual) Lymphocytes % (Manual) Seg Neutrophils # Seg Neutrophils # Man Lymphocytes # (Manual) D-Dimer ABG pH POC ABG pCO2 POC ABG pO2 ABG pO2 ABG HCO3 ABG O2 Saturation ABG Base Excess ABG Oxyhemoglobin ABG Sodium ABG Chloride ABG Glucose Oxyhemoglobin Carboxyhemoglobin Sodium Potassium Chloride Carbon Dioxide BUN 20 H Creatinine 0.2 L Glucose POC Glucose 245 H 66 L Hemoglobin A1c Magnesium Ferritin AST ALT Alkaline Phosphatase Lactate Dehydrogenase C-Reactive Protein Total Protein Albumin Arterial Blood Glucose Coronavirus (PCR) 06/22/21 06/22/21 06/22/21 11:03 16:07 22:03 WBC MCV MCH MCHC RDW Lymph % (Auto) [place] % (Auto) Eos % (Auto) Lymph # (Auto) [place] # (Auto) Eos # (Auto) Baso # (Auto) Seg Neutrophils % Seg Neuts % (Manual) Lymphocytes % (Manual) Seg Neutrophils # Seg Neutrophils # Man Lymphocytes # (Manual) D-Dimer ABG pH POC ABG pCO2 POC ABG pO2 ABG pO2 ABG HCO3 ABG O2 Saturation ABG Base Excess ABG Oxyhemoglobin ABG Sodium ABG Chloride ABG Glucose Oxyhemoglobin Carboxyhemoglobin Sodium Potassium Chloride Carbon Dioxide BUN Creatinine Glucose POC Glucose 184 H 326 H 138 H Hemoglobin A1c Magnesium Ferritin AST ALT Alkaline Phosphatase Lactate Dehydrogenase C-Reactive Protein Total Protein Albumin Arterial Blood Glucose Coronavirus (PCR) 06/23/21 06/23/21 06/23/21 07:19 10:34 16:35 WBC MCV MCH MCHC RDW Lymph % (Auto) [place] % (Auto) Eos % (Auto) Lymph # (Auto) [place] # (Auto) Eos # (Auto) Baso # (Auto) Seg Neutrophils % Seg Neuts % (Manual) Lymphocytes % (Manual) Seg Neutrophils # Seg Neutrophils # Man Lymphocytes # (Manual) D-Dimer ABG pH POC ABG pCO2 POC ABG pO2 ABG pO2 ABG HCO3 ABG O2 Saturation ABG Base Excess ABG Oxyhemoglobin ABG Sodium ABG Chloride ABG Glucose Oxyhemoglobin Carboxyhemoglobin Sodium Potassium Chloride Carbon Dioxide BUN Creatinine Glucose POC Glucose 69 L 218 H 326 H Hemoglobin A1c Magnesium Ferritin AST ALT Alkaline Phosphatase Lactate Dehydrogenase C-Reactive Protein Total Protein Albumin Arterial Blood Glucose Coronavirus (PCR) 06/23/21 06/24/21 06/24/21 22:44 11:41 16:54 WBC MCV MCH MCHC RDW Lymph % (Auto) [place] % (Auto) Eos % (Auto) Lymph # (Auto) [place] # (Auto) Eos # (Auto) Baso # (Auto) Seg Neutrophils % Seg Neuts % (Manual) Lymphocytes % (Manual) Seg Neutrophils # Seg Neutrophils # Man Lymphocytes # (Manual) D-Dimer ABG pH POC ABG pCO2 POC ABG pO2 ABG pO2 ABG HCO3 ABG O2 Saturation ABG Base Excess ABG Oxyhemoglobin ABG Sodium ABG Chloride ABG Glucose Oxyhemoglobin Carboxyhemoglobin Sodium Potassium Chloride Carbon Dioxide BUN Creatinine Glucose POC Glucose 252 H 217 H 357 H Hemoglobin A1c Magnesium Ferritin AST ALT Alkaline Phosphatase Lactate Dehydrogenase C-Reactive Protein Total Protein Albumin Arterial Blood Glucose Coronavirus (PCR) 06/24/21 06/25/2121 20:40 11:51 16:47 WBC MCV MCH MCHC RDW Lymph % (Auto) [place] % (Auto) Eos % (Auto) Lymph # (Auto) [place] # (Auto) Eos # (Auto) Baso # (Auto) Seg Neutrophils % Seg Neuts % (Manual) Lymphocytes % (Manual) Seg Neutrophils # Seg Neutrophils # Man Lymphocytes # (Manual) D-Dimer ABG pH POC ABG pCO2 POC ABG pO2 ABG pO2 ABG HCO3 ABG O2 Saturation ABG Base Excess ABG Oxyhemoglobin ABG Sodium ABG Chloride ABG Glucose Oxyhemoglobin Carboxyhemoglobin Sodium Potassium Chloride Carbon Dioxide BUN Creatinine Glucose POC Glucose 239 H 182 H 229 H Hemoglobin A1c Magnesium Ferritin AST ALT Alkaline Phosphatase Lactate Dehydrogenase C-Reactive Protein Total Protein Albumin Arterial Blood Glucose Coronavirus (PCR) 06/25/21 06/26/21 06/26/21 22:27 07:20 12:19 WBC MCV MCH MCHC RDW Lymph % (Auto) [place] % (Auto) Eos % (Auto) Lymph # (Auto) [place] # (Auto) Eos # (Auto) Baso # (Auto) Seg Neutrophils % Seg Neuts % (Manual) Lymphocytes % (Manual) Seg Neutrophils # Seg Neutrophils # Man Lymphocytes # (Manual) D-Dimer ABG pH POC ABG pCO2 POC ABG pO2 ABG pO2 ABG HCO3 ABG O2 Saturation ABG Base Excess ABG Oxyhemoglobin ABG Sodium ABG Chloride ABG Glucose Oxyhemoglobin Carboxyhemoglobin Sodium Potassium 3.2 L D Chloride Carbon Dioxide BUN 20 H Creatinine 0.3 L Glucose POC Glucose 209 H 273 H Hemoglobin A1c Magnesium Ferritin AST ALT 77 H Alkaline Phosphatase Lactate Dehydrogenase C-Reactive Protein Total Protein Albumin 3.3 L Arterial Blood Glucose Coronavirus (PCR) 06/26/21 06/26/21 06/27/21 16:52 20:55 07:14 WBC MCV MCH MCHC RDW Lymph % (Auto) [place] % (Auto) Eos % (Auto) Lymph # (Auto) [place] # (Auto) Eos # (Auto) Baso # (Auto) Seg Neutrophils % Seg Neuts % (Manual) Lymphocytes % (Manual) Seg Neutrophils # Seg Neutrophils # Man Lymphocytes # (Manual) D-Dimer ABG pH POC ABG pCO2 POC ABG pO2 ABG pO2 ABG HCO3 ABG O2 Saturation ABG Base Excess ABG Oxyhemoglobin ABG Sodium ABG Chloride ABG Glucose Oxyhemoglobin Carboxyhemoglobin Sodium Potassium Chloride Carbon Dioxide 31 H BUN 19 H Creatinine 0.2 L Glucose 112 H POC Glucose 326 H 220 H Hemoglobin A1c Magnesium Ferritin AST ALT Alkaline Phosphatase Lactate Dehydrogenase C-Reactive Protein Total Protein Albumin Arterial Blood Glucose Coronavirus (PCR) 06/27/21 06/27/21 06/27/21 07:29 10:54 15:49 WBC MCV MCH MCHC RDW Lymph % (Auto) [place] % (Auto) Eos % (Auto) Lymph # (Auto) [place] # (Auto) Eos # (Auto) Baso # (Auto) Seg Neutrophils % Seg Neuts % (Manual) Lymphocytes % (Manual) Seg Neutrophils # Seg Neutrophils # Man Lymphocytes # (Manual) D-Dimer ABG pH POC ABG pCO2 POC ABG pO2 ABG pO2 ABG HCO3 ABG O2 Saturation ABG Base Excess ABG Oxyhemoglobin ABG Sodium ABG Chloride ABG Glucose Oxyhemoglobin Carboxyhemoglobin Sodium Potassium Chloride Carbon Dioxide BUN Creatinine Glucose POC Glucose 115 H 228 H 240 H Hemoglobin A1c Magnesium Ferritin AST ALT Alkaline Phosphatase Lactate Dehydrogenase C-Reactive Protein Total Protein Albumin Arterial Blood Glucose Coronavirus (PCR) 06/28/21 06/28/21 06/28/21 05:43 05:43 07:13 WBC MCV MCH 33 H MCHC RDW 19.8 H Lymph % (Auto) [place] % (Auto) Eos % (Auto) Lymph # (Auto) [place] # (Auto) Eos # (Auto) Baso # (Auto) Seg Neutrophils % Seg Neuts % (Manual) Lymphocytes % (Manual) Seg Neutrophils # Seg Neutrophils # Man Lymphocytes # (Manual) D-Dimer ABG pH POC ABG pCO2 POC ABG pO2 ABG pO2 ABG HCO3 ABG O2 Saturation ABG Base Excess ABG Oxyhemoglobin ABG Sodium ABG Chloride ABG Glucose Oxyhemoglobin Carboxyhemoglobin Sodium Potassium 3.3 L Chloride Carbon Dioxide BUN 22 H Creatinine 0.2 L Glucose POC Glucose 69 L Hemoglobin A1c Magnesium Ferritin AST ALT 63 H Alkaline Phosphatase Lactate Dehydrogenase C-Reactive Protein Total Protein Albumin 3.3 L Arterial Blood Glucose Coronavirus (PCR) 06/28/21 06/28/21 06/28/21 12:18 15:37 21:01 WBC MCV MCH MCHC RDW Lymph % (Auto) [place] % (Auto) Eos % (Auto) Lymph # (Auto) [place] # (Auto) Eos # (Auto) Baso # (Auto) Seg Neutrophils % Seg Neuts % (Manual) Lymphocytes % (Manual) Seg Neutrophils # Seg Neutrophils # Man Lymphocytes # (Manual) D-Dimer ABG pH POC ABG pCO2 POC ABG pO2 ABG pO2 ABG HCO3 ABG O2 Saturation ABG Base Excess ABG Oxyhemoglobin ABG Sodium ABG Chloride ABG Glucose Oxyhemoglobin Carboxyhemoglobin Sodium Potassium Chloride Carbon Dioxide BUN Creatinine Glucose POC Glucose 154 H 201 H 191 H Hemoglobin A1c Magnesium Ferritin AST ALT Alkaline Phosphatase Lactate Dehydrogenase C-Reactive Protein Total Protein Albumin Arterial Blood Glucose Coronavirus (PCR) 06/29/21 06/29/21 06/29/21 11:55 15:47 21:06 WBC MCV MCH MCHC RDW Lymph % (Auto) [place] % (Auto) Eos % (Auto) Lymph # (Auto) [place] # (Auto) Eos # (Auto) Baso # (Auto) Seg Neutrophils % Seg Neuts % (Manual) Lymphocytes % (Manual) Seg Neutrophils # Seg Neutrophils # Man Lymphocytes # (Manual) D-Dimer ABG pH POC ABG pCO2 POC ABG pO2 ABG pO2 ABG HCO3 ABG O2 Saturation ABG Base Excess ABG Oxyhemoglobin ABG Sodium ABG Chloride ABG Glucose Oxyhemoglobin Carboxyhemoglobin Sodium Potassium Chloride Carbon Dioxide BUN Creatinine Glucose POC Glucose 238 H 249 H 155 H Hemoglobin A1c Magnesium Ferritin AST ALT Alkaline Phosphatase Lactate Dehydrogenase C-Reactive Protein Total Protein Albumin Arterial Blood Glucose Coronavirus (PCR) 06/30/21 06/30/21 06/30/21 04:00 07:50 11:50 WBC MCV MCH MCHC RDW Lymph % (Auto) [place] % (Auto) Eos % (Auto) Lymph # (Auto) [place] # (Auto) Eos # (Auto) Baso # (Auto) Seg Neutrophils % Seg Neuts % (Manual) Lymphocytes % (Manual) Seg Neutrophils # Seg Neutrophils # Man Lymphocytes # (Manual) D-Dimer ABG pH POC ABG pCO2 POC ABG pO2 ABG pO2 ABG HCO3 ABG O2 Saturation ABG Base Excess ABG Oxyhemoglobin ABG Sodium ABG Chloride ABG Glucose Oxyhemoglobin Carboxyhemoglobin Sodium Potassium 3.5 L Chloride Carbon Dioxide BUN 18 H Creatinine 0.3 L Glucose 111 H POC Glucose 117 H 250 H Hemoglobin A1c Magnesium Ferritin AST ALT Alkaline Phosphatase Lactate Dehydrogenase C-Reactive Protein Total Protein Albumin Arterial Blood Glucose Coronavirus (PCR) 06/30/21 06/30/21 07/01/21 16:05 21:02 07:26 WBC MCV MCH MCHC RDW Lymph % (Auto) [place] % (Auto) Eos % (Auto) Lymph # (Auto) [place] # (Auto) Eos # (Auto) Baso # (Auto) Seg Neutrophils % Seg Neuts % (Manual) Lymphocytes % (Manual) Seg Neutrophils # Seg Neutrophils # Man Lymphocytes # (Manual) D-Dimer ABG pH POC ABG pCO2 POC ABG pO2 ABG pO2 ABG HCO3 ABG O2 Saturation ABG Base Excess ABG Oxyhemoglobin ABG Sodium ABG Chloride ABG Glucose Oxyhemoglobin Carboxyhemoglobin Sodium Potassium Chloride Carbon Dioxide BUN Creatinine Glucose POC Glucose 250 H 217 H 111 H Hemoglobin A1c Magnesium Ferritin AST ALT Alkaline Phosphatase Lactate Dehydrogenase C-Reactive Protein Total Protein Albumin Arterial Blood Glucose Coronavirus (PCR) 07/01/21 07/01/21 07/01/21 11:06 15:48 21:31 WBC MCV MCH MCHC RDW Lymph % (Auto) [place] % (Auto) Eos % (Auto) Lymph # (Auto) [place] # (Auto) Eos # (Auto) Baso # (Auto) Seg Neutrophils % Seg Neuts % (Manual) Lymphocytes % (Manual) Seg Neutrophils # Seg Neutrophils # Man Lymphocytes # (Manual) D-Dimer ABG pH POC ABG pCO2 POC ABG pO2 ABG pO2 ABG HCO3 ABG O2 Saturation ABG Base Excess ABG Oxyhemoglobin ABG Sodium ABG Chloride ABG Glucose Oxyhemoglobin Carboxyhemoglobin Sodium Potassium Chloride Carbon Dioxide BUN Creatinine Glucose POC Glucose 229 H 239 H 199 H Hemoglobin A1c Magnesium Ferritin AST ALT Alkaline Phosphatase Lactate Dehydrogenase C-Reactive Protein Total Protein Albumin Arterial Blood Glucose Coronavirus (PCR) 07/02/21 07/02/21 07/02/21 11:50 16:44 21:49 WBC MCV MCH MCHC RDW Lymph % (Auto) [place] % (Auto) Eos % (Auto) Lymph # (Auto) [place] # (Auto) Eos # (Auto) Baso # (Auto) Seg Neutrophils % Seg Neuts % (Manual) Lymphocytes % (Manual) Seg Neutrophils # Seg Neutrophils # Man Lymphocytes # (Manual) D-Dimer ABG pH POC ABG pCO2 POC ABG pO2 ABG pO2 ABG HCO3 ABG O2 Saturation ABG Base Excess ABG Oxyhemoglobin ABG Sodium ABG Chloride ABG Glucose Oxyhemoglobin Carboxyhemoglobin Sodium Potassium Chloride Carbon Dioxide BUN Creatinine Glucose POC Glucose 230 H 203 H 197 H Hemoglobin A1c Magnesium Ferritin AST ALT Alkaline Phosphatase Lactate Dehydrogenase C-Reactive Protein Total Protein Albumin Arterial Blood Glucose Coronavirus (PCR) 07/03/21 07/03/21 07/03/21 05:46 05:46 11:59 WBC MCV MCH MCHC RDW 19.6 H Lymph % (Auto) [place] % (Auto) Eos % (Auto) Lymph # (Auto) [place] # (Auto) Eos # (Auto) Baso # (Auto) Seg Neutrophils % Seg Neuts % (Manual) Lymphocytes % (Manual) Seg Neutrophils # Seg Neutrophils # Man Lymphocytes # (Manual) D-Dimer ABG pH POC ABG pCO2 POC ABG pO2 ABG pO2 ABG HCO3 ABG O2 Saturation ABG Base Excess ABG Oxyhemoglobin ABG Sodium ABG Chloride ABG Glucose Oxyhemoglobin Carboxyhemoglobin Sodium Potassium 3.2 L Chloride Carbon Dioxide BUN Creatinine 0.3 L Glucose POC Glucose 145 H Hemoglobin A1c Magnesium Ferritin AST ALT Alkaline Phosphatase Lactate Dehydrogenase C-Reactive Protein Total Protein Albumin Arterial Blood Glucose Coronavirus (PCR) 07/03/21 07/03/21 07/04/21 16:40 22:00 06:35 WBC MCV MCH MCHC RDW Lymph % (Auto) [place] % (Auto) Eos % (Auto) Lymph # (Auto) [place] # (Auto) Eos # (Auto) Baso # (Auto) Seg Neutrophils % Seg Neuts % (Manual) Lymphocytes % (Manual) Seg Neutrophils # Seg Neutrophils # Man Lymphocytes # (Manual) D-Dimer ABG pH POC ABG pCO2 POC ABG pO2 ABG pO2 ABG HCO3 ABG O2 Saturation ABG Base Excess ABG Oxyhemoglobin ABG Sodium ABG Chloride ABG Glucose Oxyhemoglobin Carboxyhemoglobin Sodium Potassium Chloride Carbon Dioxide BUN Creatinine 0.3 L Glucose 118 H POC Glucose 176 H 127 H Hemoglobin A1c Magnesium Ferritin AST ALT Alkaline Phosphatase Lactate Dehydrogenase C-Reactive Protein Total Protein Albumin Arterial Blood Glucose Coronavirus (PCR) 07/04/21 07/04/21 07/05/21 12:30 16:38 08:37 WBC MCV MCH MCHC RDW Lymph % (Auto) [place] % (Auto) Eos % (Auto) Lymph # (Auto) [place] # (Auto) Eos # (Auto) Baso # (Auto) Seg Neutrophils % Seg Neuts % (Manual) Lymphocytes % (Manual) Seg Neutrophils # Seg Neutrophils # Man Lymphocytes # (Manual) D-Dimer ABG pH POC ABG pCO2 POC ABG pO2 ABG pO2 ABG HCO3 ABG O2 Saturation ABG Base Excess ABG Oxyhemoglobin ABG Sodium ABG Chloride ABG Glucose Oxyhemoglobin Carboxyhemoglobin Sodium Potassium Chloride Carbon Dioxide BUN Creatinine Glucose POC Glucose 162 H 205 H 115 H Hemoglobin A1c Magnesium Ferritin AST ALT Alkaline Phosphatase Lactate Dehydrogenase C-Reactive Protein Total Protein Albumin Arterial Blood Glucose Coronavirus (PCR) 07/05/21 07/05/21 07/05/21 10:57 16:42 21:14 WBC MCV MCH MCHC RDW Lymph % (Auto) [place] % (Auto) Eos % (Auto) Lymph # (Auto) [place] # (Auto) Eos # (Auto) Baso # (Auto) Seg Neutrophils % Seg Neuts % (Manual) Lymphocytes % (Manual) Seg Neutrophils # Seg Neutrophils # Man Lymphocytes # (Manual) D-Dimer ABG pH POC ABG pCO2 POC ABG pO2 ABG pO2 ABG HCO3 ABG O2 Saturation ABG Base Excess ABG Oxyhemoglobin ABG Sodium ABG Chloride ABG Glucose Oxyhemoglobin Carboxyhemoglobin Sodium Potassium Chloride Carbon Dioxide BUN Creatinine Glucose POC Glucose 151 H 184 H 130 H Hemoglobin A1c Magnesium Ferritin AST ALT Alkaline Phosphatase Lactate Dehydrogenase C-Reactive Protein Total Protein Albumin Arterial Blood Glucose Coronavirus (PCR) 07/06/21 07/06/21 07/06/21 07:31 11:49 16:46 WBC MCV MCH MCHC RDW Lymph % (Auto) [place] % (Auto) Eos % (Auto) Lymph # (Auto) [place] # (Auto) Eos # (Auto) Baso # (Auto) Seg Neutrophils % Seg Neuts % (Manual) Lymphocytes % (Manual) Seg Neutrophils # Seg Neutrophils # Man Lymphocytes # (Manual) D-Dimer ABG pH POC ABG pCO2 POC ABG pO2 ABG pO2 ABG HCO3 ABG O2 Saturation ABG Base Excess ABG Oxyhemoglobin ABG Sodium ABG Chloride ABG Glucose Oxyhemoglobin Carboxyhemoglobin Sodium Potassium Chloride Carbon Dioxide BUN Creatinine Glucose POC Glucose 106 H 173 H 205 H Hemoglobin A1c Magnesium Ferritin AST ALT Alkaline Phosphatase Lactate Dehydrogenase C-Reactive Protein Total Protein Albumin Arterial Blood Glucose Coronavirus (PCR) 07/06/21 07/07/21 07/07/21 21:38 06:00 06:00 WBC 16.1 H MCV MCH MCHC RDW 18.8 H Lymph % (Auto) [place] % (Auto) Eos % (Auto) Lymph # (Auto) [place] # (Auto) 1.1 H Eos # (Auto) Baso # (Auto) 0.2 H Seg Neutrophils % 74.9 H Seg Neuts % (Manual) Lymphocytes % (Manual) Seg Neutrophils # 12.1 H Seg Neutrophils # Man Lymphocytes # (Manual) D-Dimer ABG pH POC ABG pCO2 POC ABG pO2 ABG pO2 ABG HCO3 ABG O2 Saturation ABG Base Excess ABG Oxyhemoglobin ABG Sodium ABG Chloride ABG Glucose Oxyhemoglobin Carboxyhemoglobin Sodium Potassium 3.5 L D Chloride Carbon Dioxide BUN 6 L Creatinine < 0.2 L Glucose 106 H POC Glucose 120 H Hemoglobin A1c Magnesium Ferritin AST ALT Alkaline Phosphatase Lactate Dehydrogenase C-Reactive Protein Total Protein Albumin Arterial Blood Glucose Coronavirus (PCR) 07/07/21 07/07/21 07/07/21 07:10 11:53 15:53 WBC MCV MCH MCHC RDW Lymph % (Auto) [place] % (Auto) Eos % (Auto) Lymph # (Auto) [place] # (Auto) Eos # (Auto) Baso # (Auto) Seg Neutrophils % Seg Neuts % (Manual) Lymphocytes % (Manual) Seg Neutrophils # Seg Neutrophils # Man Lymphocytes # (Manual) D-Dimer ABG pH POC ABG pCO2 POC ABG pO2 ABG pO2 ABG HCO3 ABG O2 Saturation ABG Base Excess ABG Oxyhemoglobin ABG Sodium ABG Chloride ABG Glucose Oxyhemoglobin Carboxyhemoglobin Sodium Potassium Chloride Carbon Dioxide BUN Creatinine Glucose POC Glucose 132 H 169 H 242 H Hemoglobin A1c Magnesium Ferritin AST ALT Alkaline Phosphatase Lactate Dehydrogenase C-Reactive Protein Total Protein Albumin Arterial Blood Glucose Coronavirus (PCR) 07/07/21 07/08/21 07/08/21 21:41 08:09 12:20 WBC MCV MCH MCHC RDW Lymph % (Auto) [place] % (Auto) Eos % (Auto) Lymph # (Auto) [place] # (Auto) Eos # (Auto) Baso # (Auto) Seg Neutrophils % Seg Neuts % (Manual) Lymphocytes % (Manual) Seg Neutrophils # Seg Neutrophils # Man Lymphocytes # (Manual) D-Dimer ABG pH POC ABG pCO2 POC ABG pO2 ABG pO2 ABG HCO3 ABG O2 Saturation ABG Base Excess ABG Oxyhemoglobin ABG Sodium ABG Chloride ABG Glucose Oxyhemoglobin Carboxyhemoglobin Sodium Potassium Chloride Carbon Dioxide BUN Creatinine Glucose POC Glucose 128 H 132 H 179 H Hemoglobin A1c Magnesium Ferritin AST ALT Alkaline Phosphatase Lactate Dehydrogenase C-Reactive Protein Total Protein Albumin Arterial Blood Glucose Coronavirus (PCR) 07/08/21 07/08/21 07/08/21 16:37 21:45 22:44 WBC MCV MCH MCHC RDW Lymph % (Auto) [place] % (Auto) Eos % (Auto) Lymph # (Auto) [place] # (Auto) Eos # (Auto) Baso # (Auto) Seg Neutrophils % Seg Neuts % (Manual) Lymphocytes % (Manual) Seg Neutrophils # Seg Neutrophils # Man Lymphocytes # (Manual) D-Dimer ABG pH POC ABG pCO2 POC ABG pO2 ABG pO2 ABG HCO3 ABG O2 Saturation ABG Base Excess ABG Oxyhemoglobin ABG Sodium ABG Chloride ABG Glucose Oxyhemoglobin Carboxyhemoglobin Sodium Potassium Chloride Carbon Dioxide BUN Creatinine Glucose POC Glucose 192 H 51 L 137 H Hemoglobin A1c Magnesium Ferritin AST ALT Alkaline Phosphatase Lactate Dehydrogenase C-Reactive Protein Total Protein Albumin Arterial Blood Glucose Coronavirus (PCR) 07/09/21 07/09/21 07/09/21 04:45 04:45 04:45 WBC MCV MCH MCHC RDW 18.3 H Lymph % (Auto) [place] % (Auto) Eos % (Auto) Lymph # (Auto) [place] # (Auto) Eos # (Auto) Baso # (Auto) Seg Neutrophils % Seg Neuts % (Manual) 82.0 H Lymphocytes % (Manual) 13.0 L Seg Neutrophils # Seg Neutrophils # Man 7.8 H Lymphocytes # (Manual) D-Dimer 638.35 H ABG pH POC ABG pCO2 POC ABG pO2 ABG pO2 ABG HCO3 ABG O2 Saturation ABG Base Excess ABG Oxyhemoglobin ABG Sodium ABG Chloride ABG Glucose Oxyhemoglobin Carboxyhemoglobin Sodium Potassium Chloride 96.9 L Carbon Dioxide 35 H BUN Creatinine 0.2 L Glucose 135 H POC Glucose Hemoglobin A1c Magnesium Ferritin AST ALT Alkaline Phosphatase Lactate Dehydrogenase C-Reactive Protein 4.30 H Total Protein Albumin Arterial Blood Glucose Coronavirus (PCR) 07/09/21 07/09/21 07/09/21 05:19 07:36 11:16 WBC MCV MCH MCHC RDW Lymph % (Auto) [place] % (Auto) Eos % (Auto) Lymph # (Auto) [place] # (Auto) Eos # (Auto) Baso # (Auto) Seg Neutrophils % Seg Neuts % (Manual) Lymphocytes % (Manual) Seg Neutrophils # Seg Neutrophils # Man Lymphocytes # (Manual) D-Dimer ABG pH POC ABG pCO2 POC ABG pO2 ABG pO2 ABG HCO3 ABG O2 Saturation ABG Base Excess ABG Oxyhemoglobin ABG Sodium ABG Chloride ABG Glucose Oxyhemoglobin Carboxyhemoglobin Sodium Potassium Chloride Carbon Dioxide BUN Creatinine Glucose POC Glucose 135 H 148 H 212 H Hemoglobin A1c Magnesium Ferritin AST ALT Alkaline Phosphatase Lactate Dehydrogenase C-Reactive Protein Total Protein Albumin Arterial Blood Glucose Coronavirus (PCR) 07/09/21 07/09/21 07/10/21 15:21 21:12 05:40 WBC MCV MCH MCHC RDW Lymph % (Auto) [place] % (Auto) Eos % (Auto) Lymph # (Auto) [place] # (Auto) Eos # (Auto) Baso # (Auto) Seg Neutrophils % Seg Neuts % (Manual) Lymphocytes % (Manual) Seg Neutrophils # Seg Neutrophils # Man Lymphocytes # (Manual) D-Dimer ABG pH POC ABG pCO2 POC ABG pO2 ABG pO2 ABG HCO3 ABG O2 Saturation ABG Base Excess ABG Oxyhemoglobin ABG Sodium ABG Chloride ABG Glucose Oxyhemoglobin Carboxyhemoglobin Sodium Potassium 3.3 L Chloride 95.1 L Carbon Dioxide 39 H BUN Creatinine 0.2 L Glucose 122 H POC Glucose 128 H 196 H Hemoglobin A1c Magnesium Ferritin AST ALT Alkaline Phosphatase Lactate Dehydrogenase C-Reactive Protein Total Protein Albumin Arterial Blood Glucose Coronavirus (PCR) 07/10/21 07/10/21 07/10/21 07:38 11:15 16:29 WBC MCV MCH MCHC RDW Lymph % (Auto) [place] % (Auto) Eos % (Auto) Lymph # (Auto) [place] # (Auto) Eos # (Auto) Baso # (Auto) Seg Neutrophils % Seg Neuts % (Manual) Lymphocytes % (Manual) Seg Neutrophils # Seg Neutrophils # Man Lymphocytes # (Manual) D-Dimer ABG pH POC ABG pCO2 POC ABG pO2 ABG pO2 ABG HCO3 ABG O2 Saturation ABG Base Excess ABG Oxyhemoglobin ABG Sodium ABG Chloride ABG Glucose Oxyhemoglobin Carboxyhemoglobin Sodium Potassium Chloride Carbon Dioxide BUN Creatinine Glucose POC Glucose 128 H 175 H 174 H Hemoglobin A1c Magnesium Ferritin AST ALT Alkaline Phosphatase Lactate Dehydrogenase C-Reactive Protein Total Protein Albumin Arterial Blood Glucose Coronavirus (PCR) 07/10/21 07/11/21 07/11/21 20:49 05:50 12:08 WBC MCV MCH MCHC RDW Lymph % (Auto) [place] % (Auto) Eos % (Auto) Lymph # (Auto) [place] # (Auto) Eos # (Auto) Baso # (Auto) Seg Neutrophils % Seg Neuts % (Manual) Lymphocytes % (Manual) Seg Neutrophils # Seg Neutrophils # Man Lymphocytes # (Manual) D-Dimer ABG pH POC ABG pCO2 POC ABG pO2 ABG pO2 ABG HCO3 ABG O2 Saturation ABG Base Excess ABG Oxyhemoglobin ABG Sodium ABG Chloride ABG Glucose Oxyhemoglobin Carboxyhemoglobin Sodium Potassium Chloride 97.3 L Carbon Dioxide 34 H BUN Creatinine 0.2 L Glucose 109 H POC Glucose 142 H 220 H Hemoglobin A1c Magnesium Ferritin AST ALT Alkaline Phosphatase Lactate Dehydrogenase C-Reactive Protein Total Protein Albumin Arterial Blood Glucose Coronavirus (PCR) 07/11/21 07/11/21 07/12/21 17:09 21:55 07:36 WBC MCV MCH MCHC RDW Lymph % (Auto) [place] % (Auto) Eos % (Auto) Lymph # (Auto) [place] # (Auto) Eos # (Auto) Baso # (Auto) Seg Neutrophils % Seg Neuts % (Manual) Lymphocytes % (Manual) Seg Neutrophils # Seg Neutrophils # Man Lymphocytes # (Manual) D-Dimer ABG pH POC ABG pCO2 POC ABG pO2 ABG pO2 ABG HCO3 ABG O2 Saturation ABG Base Excess ABG Oxyhemoglobin ABG Sodium ABG Chloride ABG Glucose Oxyhemoglobin Carboxyhemoglobin Sodium Potassium Chloride Carbon Dioxide BUN Creatinine Glucose POC Glucose 219 H 124 H 114 H Hemoglobin A1c Magnesium Ferritin AST ALT Alkaline Phosphatase Lactate Dehydrogenase C-Reactive Protein Total Protein Albumin Arterial Blood Glucose Coronavirus (PCR) 07/12/21 07/12/21 07/12/21 11:08 15:43 22:20 WBC MCV MCH MCHC RDW Lymph % (Auto) [place] % (Auto) Eos % (Auto) Lymph # (Auto) [place] # (Auto) Eos # (Auto) Baso # (Auto) Seg Neutrophils % Seg Neuts % (Manual) Lymphocytes % (Manual) Seg Neutrophils # Seg Neutrophils # Man Lymphocytes # (Manual) D-Dimer ABG pH POC ABG pCO2 POC ABG pO2 ABG pO2 ABG HCO3 ABG O2 Saturation ABG Base Excess ABG Oxyhemoglobin ABG Sodium ABG Chloride ABG Glucose Oxyhemoglobin Carboxyhemoglobin Sodium Potassium Chloride Carbon Dioxide BUN Creatinine Glucose POC Glucose 195 H 276 H 189 H Hemoglobin A1c Magnesium Ferritin AST ALT Alkaline Phosphatase Lactate Dehydrogenase C-Reactive Protein Total Protein Albumin Arterial Blood Glucose Coronavirus (PCR) 07/13/21 07/13/21 07/13/21 08:01 08:08 10:17 WBC MCV MCH MCHC RDW Lymph % (Auto) [place] % (Auto) Eos % (Auto) Lymph # (Auto) [place] # (Auto) Eos # (Auto) Baso # (Auto) Seg Neutrophils % Seg Neuts % (Manual) Lymphocytes % (Manual) Seg Neutrophils # Seg Neutrophils # Man Lymphocytes # (Manual) D-Dimer ABG pH POC ABG pCO2 POC ABG pO2 ABG pO2 ABG HCO3 ABG O2 Saturation ABG Base Excess ABG Oxyhemoglobin ABG Sodium ABG Chloride ABG Glucose Oxyhemoglobin Carboxyhemoglobin Sodium Potassium Chloride 94.4 L Carbon Dioxide 34 H BUN Creatinine 0.3 L Glucose 149 H POC Glucose 132 H 265 H Hemoglobin A1c Magnesium Ferritin AST ALT Alkaline Phosphatase Lactate Dehydrogenase C-Reactive Protein Total Protein Albumin Arterial Blood Glucose Coronavirus (PCR) 07/13/21 07/13/21 07/14/21 17:58 21:41 07:34 WBC MCV MCH MCHC RDW Lymph % (Auto) [place] % (Auto) Eos % (Auto) Lymph # (Auto) [place] # (Auto) Eos # (Auto) Baso # (Auto) Seg Neutrophils % Seg Neuts % (Manual) Lymphocytes % (Manual) Seg Neutrophils # Seg Neutrophils # Man Lymphocytes # (Manual) D-Dimer ABG pH POC ABG pCO2 POC ABG pO2 ABG pO2 ABG HCO3 ABG O2 Saturation ABG Base Excess ABG Oxyhemoglobin ABG Sodium ABG Chloride ABG Glucose Oxyhemoglobin Carboxyhemoglobin Sodium Potassium Chloride Carbon Dioxide BUN Creatinine Glucose POC Glucose 217 H 223 H 116 H Hemoglobin A1c Magnesium Ferritin AST ALT Alkaline Phosphatase Lactate Dehydrogenase C-Reactive Protein Total Protein Albumin Arterial Blood Glucose Coronavirus (PCR) 07/14/21 07/14/21 07/14/21 10:50 17:33 20:51 WBC MCV MCH MCHC RDW Lymph % (Auto) [place] % (Auto) Eos % (Auto) Lymph # (Auto) [place] # (Auto) Eos # (Auto) Baso # (Auto) Seg Neutrophils % Seg Neuts % (Manual) Lymphocytes % (Manual) Seg Neutrophils # Seg Neutrophils # Man Lymphocytes # (Manual) D-Dimer ABG pH POC ABG pCO2 POC ABG pO2 ABG pO2 ABG HCO3 ABG O2 Saturation ABG Base Excess ABG Oxyhemoglobin ABG Sodium ABG Chloride ABG Glucose Oxyhemoglobin Carboxyhemoglobin Sodium Potassium Chloride Carbon Dioxide BUN Creatinine Glucose POC Glucose 191 H 173 H 132 H Hemoglobin A1c Magnesium Ferritin AST ALT Alkaline Phosphatase Lactate Dehydrogenase C-Reactive Protein Total Protein Albumin Arterial Blood Glucose Coronavirus (PCR) 07/15/21 07/15/21 07/15/21 04:00 07:59 12:31 WBC MCV MCH MCHC RDW Lymph % (Auto) [place] % (Auto) Eos % (Auto) Lymph # (Auto) [place] # (Auto) Eos # (Auto) Baso # (Auto) Seg Neutrophils % Seg Neuts % (Manual) Lymphocytes % (Manual) Seg Neutrophils # Seg Neutrophils # Man Lymphocytes # (Manual) D-Dimer ABG pH POC ABG pCO2 POC ABG pO2 ABG pO2 ABG HCO3 ABG O2 Saturation ABG Base Excess ABG Oxyhemoglobin ABG Sodium ABG Chloride ABG Glucose Oxyhemoglobin Carboxyhemoglobin Sodium Potassium Chloride 96.0 L Carbon Dioxide 32 H BUN Creatinine 0.3 L Glucose 208 H POC Glucose 117 H 195 H Hemoglobin A1c Magnesium Ferritin AST ALT Alkaline Phosphatase Lactate Dehydrogenase C-Reactive Protein Total Protein Albumin Arterial Blood Glucose Coronavirus (PCR) 07/15/21 07/15/21 07/16/21 18:00 20:57 04:40 WBC MCV MCH MCHC RDW 17.1 H Lymph % (Auto) [place] % (Auto) Eos % (Auto) Lymph # (Auto) [place] # (Auto) Eos # (Auto) Baso # (Auto) Seg Neutrophils % Seg Neuts % (Manual) Lymphocytes % (Manual) Seg Neutrophils # Seg Neutrophils # Man Lymphocytes # (Manual) D-Dimer ABG pH POC ABG pCO2 POC ABG pO2 ABG pO2 ABG HCO3 ABG O2 Saturation ABG Base Excess ABG Oxyhemoglobin ABG Sodium ABG Chloride ABG Glucose Oxyhemoglobin Carboxyhemoglobin Sodium Potassium Chloride Carbon Dioxide BUN Creatinine Glucose POC Glucose 217 H 111 H Hemoglobin A1c Magnesium Ferritin AST ALT Alkaline Phosphatase Lactate Dehydrogenase C-Reactive Protein Total Protein Albumin Arterial Blood Glucose Coronavirus (PCR) 07/16/21 07/16/21 07/16/21 04:40 07:08 11:11 WBC MCV MCH MCHC RDW Lymph % (Auto) [place] % (Auto) Eos % (Auto) Lymph # (Auto) [place] # (Auto) Eos # (Auto) Baso # (Auto) Seg Neutrophils % Seg Neuts % (Manual) Lymphocytes % (Manual) Seg Neutrophils # Seg Neutrophils # Man Lymphocytes # (Manual) D-Dimer ABG pH POC ABG pCO2 POC ABG pO2 ABG pO2 ABG HCO3 ABG O2 Saturation ABG Base Excess ABG Oxyhemoglobin ABG Sodium ABG Chloride ABG Glucose Oxyhemoglobin Carboxyhemoglobin Sodium Potassium 3.4 L Chloride 94.6 L Carbon Dioxide 36 H BUN Creatinine < 0.2 L Glucose 101 H POC Glucose 118 H 184 H Hemoglobin A1c Magnesium Ferritin AST ALT Alkaline Phosphatase Lactate Dehydrogenase C-Reactive Protein Total Protein Albumin Arterial Blood Glucose Coronavirus (PCR) 07/16/21 07/16/21 07/17/21 17:29 22:01 08:10 WBC MCV MCH MCHC RDW Lymph % (Auto) [place] % (Auto) Eos % (Auto) Lymph # (Auto) [place] # (Auto) Eos # (Auto) Baso # (Auto) Seg Neutrophils % Seg Neuts % (Manual) Lymphocytes % (Manual) Seg Neutrophils # Seg Neutrophils # Man Lymphocytes # (Manual) D-Dimer ABG pH POC ABG pCO2 POC ABG pO2 ABG pO2 ABG HCO3 ABG O2 Saturation ABG Base Excess ABG Oxyhemoglobin ABG Sodium ABG Chloride ABG Glucose Oxyhemoglobin Carboxyhemoglobin Sodium Potassium Chloride Carbon Dioxide BUN Creatinine Glucose POC Glucose 200 H 147 H 118 H Hemoglobin A1c Magnesium Ferritin AST ALT Alkaline Phosphatase Lactate Dehydrogenase C-Reactive Protein Total Protein Albumin Arterial Blood Glucose Coronavirus (PCR) 07/17/21 07/17/21 07/17/21 11:38 16:24 21:13 WBC MCV MCH MCHC RDW Lymph % (Auto) [place] % (Auto) Eos % (Auto) Lymph # (Auto) [place] # (Auto) Eos # (Auto) Baso # (Auto) Seg Neutrophils % Seg Neuts % (Manual) Lymphocytes % (Manual) Seg Neutrophils # Seg Neutrophils # Man Lymphocytes # (Manual) D-Dimer ABG pH POC ABG pCO2 POC ABG pO2 ABG pO2 ABG HCO3 ABG O2 Saturation ABG Base Excess ABG Oxyhemoglobin ABG Sodium ABG Chloride ABG Glucose Oxyhemoglobin Carboxyhemoglobin Sodium Potassium Chloride Carbon Dioxide BUN Creatinine Glucose POC Glucose 151 H 268 H 115 H Hemoglobin A1c Magnesium Ferritin AST ALT Alkaline Phosphatase Lactate Dehydrogenase C-Reactive Protein Total Protein Albumin Arterial Blood Glucose Coronavirus (PCR) 07/18/21 07/18/21 07/18/21 07:58 12:29 20:24 WBC MCV MCH MCHC RDW Lymph % (Auto) [place] % (Auto) Eos % (Auto) Lymph # (Auto) [place] # (Auto) Eos # (Auto) Baso # (Auto) Seg Neutrophils % Seg Neuts % (Manual) Lymphocytes % (Manual) Seg Neutrophils # Seg Neutrophils # Man Lymphocytes # (Manual) D-Dimer ABG pH POC ABG pCO2 POC ABG pO2 ABG pO2 ABG HCO3 ABG O2 Saturation ABG Base Excess ABG Oxyhemoglobin ABG Sodium ABG Chloride ABG Glucose Oxyhemoglobin Carboxyhemoglobin Sodium Potassium Chloride Carbon Dioxide BUN Creatinine Glucose POC Glucose 135 H 139 H 130 H Hemoglobin A1c Magnesium Ferritin AST ALT Alkaline Phosphatase Lactate Dehydrogenase C-Reactive Protein Total Protein Albumin Arterial Blood Glucose Coronavirus (PCR) 07/19/21 07/19/21 07/19/21 06:55 06:55 07:54 WBC 14.5 H MCV MCH MCHC RDW 17.3 H Lymph % (Auto) 9.6 L [place] % (Auto) Eos % (Auto) Lymph # (Auto) [place] # (Auto) Eos # (Auto) 0.6 H Baso # (Auto) Seg Neutrophils % 80.3 H Seg Neuts % (Manual) Lymphocytes % (Manual) Seg Neutrophils # 11.7 H Seg Neutrophils # Man Lymphocytes # (Manual) D-Dimer ABG pH POC ABG pCO2 67.9 H POC ABG pO2 131.0 H ABG pO2 ABG HCO3 ABG O2 Saturation ABG Base Excess ABG Oxyhemoglobin ABG Sodium ABG Chloride 97.0 L ABG Glucose 133 H Oxyhemoglobin Carboxyhemoglobin Sodium Potassium Chloride 95.3 L Carbon Dioxide 35 H BUN Creatinine < 0.2 L Glucose 138 H POC Glucose Hemoglobin A1c Magnesium Ferritin AST ALT Alkaline Phosphatase Lactate Dehydrogenase C-Reactive Protein Total Protein Albumin Arterial Blood Glucose 133 H Coronavirus (PCR) 07/19/21 07/19/21 07/19/21 08:10 11:43 17:04 WBC MCV MCH MCHC RDW Lymph % (Auto) [place] % (Auto) Eos % (Auto) Lymph # (Auto) [place] # (Auto) Eos # (Auto) Baso # (Auto) Seg Neutrophils % Seg Neuts % (Manual) Lymphocytes % (Manual) Seg Neutrophils # Seg Neutrophils # Man Lymphocytes # (Manual) D-Dimer ABG pH POC ABG pCO2 POC ABG pO2 ABG pO2 ABG HCO3 ABG O2 Saturation ABG Base Excess ABG Oxyhemoglobin ABG Sodium ABG Chloride ABG Glucose Oxyhemoglobin Carboxyhemoglobin Sodium Potassium Chloride Carbon Dioxide BUN Creatinine Glucose POC Glucose 129 H 126 H 108 H Hemoglobin A1c Magnesium Ferritin AST ALT Alkaline Phosphatase Lactate Dehydrogenase C-Reactive Protein Total Protein Albumin Arterial Blood Glucose Coronavirus (PCR) 07/19/21 07/20/21 07/20/21 21:10 04:00 04:00 WBC MCV MCH MCHC RDW 17.0 H Lymph % (Auto) [place] % (Auto) 8.9 H Eos % (Auto) 6.3 H Lymph # (Auto) [place] # (Auto) 0.9 H Eos # (Auto) 0.6 H Baso # (Auto) Seg Neutrophils % 70.2 H Seg Neuts % (Manual) Lymphocytes % (Manual) Seg Neutrophils # Seg Neutrophils # Man Lymphocytes # (Manual) D-Dimer ABG pH POC ABG pCO2 POC ABG pO2 ABG pO2 ABG HCO3 ABG O2 Saturation ABG Base Excess ABG Oxyhemoglobin ABG Sodium ABG Chloride ABG Glucose Oxyhemoglobin Carboxyhemoglobin Sodium Potassium Chloride 96.7 L Carbon Dioxide 36 H BUN Creatinine 0.2 L Glucose 102 H POC Glucose 109 H Hemoglobin A1c Magnesium Ferritin AST ALT Alkaline Phosphatase Lactate Dehydrogenase C-Reactive Protein Total Protein Albumin 3.2 L Arterial Blood Glucose Coronavirus (PCR) 07/20/21 07/20/21 07/20/21 11:15 15:34 17:01 WBC MCV MCH MCHC RDW Lymph % (Auto) [place] % (Auto) Eos % (Auto) Lymph # (Auto) [place] # (Auto) Eos # (Auto) Baso # (Auto) Seg Neutrophils % Seg Neuts % (Manual) Lymphocytes % (Manual) Seg Neutrophils # Seg Neutrophils # Man Lymphocytes # (Manual) D-Dimer ABG pH POC ABG pCO2 POC ABG pO2 ABG pO2 ABG HCO3 ABG O2 Saturation ABG Base Excess ABG Oxyhemoglobin ABG Sodium ABG Chloride ABG Glucose Oxyhemoglobin Carboxyhemoglobin Sodium Potassium Chloride Carbon Dioxide BUN Creatinine Glucose POC Glucose 109 H 152 H 125 H Hemoglobin A1c Magnesium Ferritin AST ALT Alkaline Phosphatase Lactate Dehydrogenase C-Reactive Protein Total Protein Albumin Arterial Blood Glucose Coronavirus (PCR) 07/20/21 07/21/21 07/21/21 21:00 04:48 04:48 WBC 12.8 H MCV MCH MCHC RDW 16.8 H Lymph % (Auto) 9.3 L [place] % (Auto) Eos % (Auto) Lymph # (Auto) [place] # (Auto) 0.9 H Eos # (Auto) Baso # (Auto) Seg Neutrophils % 81.1 H Seg Neuts % (Manual) Lymphocytes % (Manual) Seg Neutrophils # 10.4 H Seg Neutrophils # Man Lymphocytes # (Manual) D-Dimer ABG pH POC ABG pCO2 POC ABG pO2 ABG pO2 ABG HCO3 ABG O2 Saturation ABG Base Excess ABG Oxyhemoglobin ABG Sodium ABG Chloride ABG Glucose Oxyhemoglobin Carboxyhemoglobin Sodium Potassium Chloride 95.4 L Carbon Dioxide 33 H BUN 6 L Creatinine < 0.2 L Glucose 155 H POC Glucose 211 H Hemoglobin A1c Magnesium 1.60 L Ferritin AST ALT Alkaline Phosphatase Lactate Dehydrogenase C-Reactive Protein Total Protein Albumin Arterial Blood Glucose Coronavirus (PCR) 07/21/21 07/21/21 07/21/21 07:52 11:05 17:01 WBC MCV MCH MCHC RDW Lymph % (Auto) [place] % (Auto) Eos % (Auto) Lymph # (Auto) [place] # (Auto) Eos # (Auto) Baso # (Auto) Seg Neutrophils % Seg Neuts % (Manual) Lymphocytes % (Manual) Seg Neutrophils # Seg Neutrophils # Man Lymphocytes # (Manual) D-Dimer ABG pH POC ABG pCO2 POC ABG pO2 ABG pO2 ABG HCO3 ABG O2 Saturation ABG Base Excess ABG Oxyhemoglobin ABG Sodium ABG Chloride ABG Glucose Oxyhemoglobin Carboxyhemoglobin Sodium Potassium Chloride Carbon Dioxide BUN Creatinine Glucose POC Glucose 116 H 207 H 133 H Hemoglobin A1c Magnesium Ferritin AST ALT Alkaline Phosphatase Lactate Dehydrogenase C-Reactive Protein Total Protein Albumin Arterial Blood Glucose Coronavirus (PCR) 07/21/21 07/22/21 07/22/21 21:17 07:55 07:55 WBC MCV MCH MCHC RDW 16.5 H Lymph % (Auto) [place] % (Auto) 8.6 H Eos % (Auto) Lymph # (Auto) [place] # (Auto) Eos # (Auto) Baso # (Auto) Seg Neutrophils % 72.3 H Seg Neuts % (Manual) Lymphocytes % (Manual) Seg Neutrophils # Seg Neutrophils # Man Lymphocytes # (Manual) D-Dimer ABG pH POC ABG pCO2 POC ABG pO2 ABG pO2 ABG HCO3 ABG O2 Saturation ABG Base Excess ABG Oxyhemoglobin ABG Sodium ABG Chloride ABG Glucose Oxyhemoglobin Carboxyhemoglobin Sodium Potassium Chloride 94.6 L Carbon Dioxide 42 H* D BUN 5 L Creatinine < 0.2 L Glucose POC Glucose 152 H Hemoglobin A1c Magnesium Ferritin AST ALT Alkaline Phosphatase Lactate Dehydrogenase C-Reactive Protein Total Protein Albumin Arterial Blood Glucose Coronavirus (PCR) 07/22/21 07/22/21 07/22/21 11:25 12:05 15:40 WBC MCV MCH MCHC RDW Lymph % (Auto) [place] % (Auto) Eos % (Auto) Lymph # (Auto) [place] # (Auto) Eos # (Auto) Baso # (Auto) Seg Neutrophils % Seg Neuts % (Manual) Lymphocytes % (Manual) Seg Neutrophils # Seg Neutrophils # Man Lymphocytes # (Manual) D-Dimer ABG pH 7.338 L POC ABG pCO2 POC ABG pO2 ABG pO2 66.1 L ABG HCO3 45.0 H ABG O2 Saturation 94.2 L ABG Base Excess 15.2 H ABG Oxyhemoglobin ABG Sodium ABG Chloride ABG Glucose Oxyhemoglobin 91.9 L Carboxyhemoglobin Sodium Potassium Chloride Carbon Dioxide BUN Creatinine Glucose POC Glucose 146 H 219 H Hemoglobin A1c Magnesium Ferritin AST ALT Alkaline Phosphatase Lactate Dehydrogenase C-Reactive Protein Total Protein Albumin Arterial Blood Glucose Coronavirus (PCR) 07/22/21 07/23/21 07/23/21 21:26 04:35 04:35 WBC MCV 98 H MCH MCHC RDW 16.2 H Lymph % (Auto) 7.9 L [place] % (Auto) Eos % (Auto) Lymph # (Auto) 0.9 L [place] # (Auto) Eos # (Auto) Baso # (Auto) Seg Neutrophils % 85.3 H Seg Neuts % (Manual) Lymphocytes % (Manual) Seg Neutrophils # 9.2 H Seg Neutrophils # Man Lymphocytes # (Manual) D-Dimer ABG pH POC ABG pCO2 POC ABG pO2 ABG pO2 ABG HCO3 ABG O2 Saturation ABG Base Excess ABG Oxyhemoglobin ABG Sodium ABG Chloride ABG Glucose Oxyhemoglobin Carboxyhemoglobin Sodium Potassium Chloride 93.9 L Carbon Dioxide 44 H* BUN Creatinine < 0.2 L Glucose 149 H POC Glucose 131 H Hemoglobin A1c Magnesium Ferritin AST ALT Alkaline Phosphatase Lactate Dehydrogenase C-Reactive Protein Total Protein Albumin Arterial Blood Glucose Coronavirus (PCR) 07/23/21 07/23/21 07/23/21 07:20 11:34 16:11 WBC MCV MCH MCHC RDW Lymph % (Auto) [place] % (Auto) Eos % (Auto) Lymph # (Auto) [place] # (Auto) Eos # (Auto) Baso # (Auto) Seg Neutrophils % Seg Neuts % (Manual) Lymphocytes % (Manual) Seg Neutrophils # Seg Neutrophils # Man Lymphocytes # (Manual) D-Dimer ABG pH POC ABG pCO2 POC ABG pO2 ABG pO2 ABG HCO3 ABG O2 Saturation ABG Base Excess ABG Oxyhemoglobin ABG Sodium ABG Chloride ABG Glucose Oxyhemoglobin Carboxyhemoglobin Sodium Potassium Chloride Carbon Dioxide BUN Creatinine Glucose POC Glucose 116 H 172 H 110 H Hemoglobin A1c Magnesium Ferritin AST ALT Alkaline Phosphatase Lactate Dehydrogenase C-Reactive Protein Total Protein Albumin Arterial Blood Glucose Coronavirus (PCR) 07/23/21 07/23/21 07/24/21 18:11 21:33 04:10 WBC MCV MCH MCHC RDW Lymph % (Auto) [place] % (Auto) Eos % (Auto) Lymph # (Auto) [place] # (Auto) Eos # (Auto) Baso # (Auto) Seg Neutrophils % Seg Neuts % (Manual) Lymphocytes % (Manual) Seg Neutrophils # Seg Neutrophils # Man Lymphocytes # (Manual) D-Dimer ABG pH POC ABG pCO2 78.3 H POC ABG pO2 80.7 L ABG pO2 ABG HCO3 ABG O2 Saturation ABG Base Excess ABG Oxyhemoglobin ABG Sodium 134.9 L ABG Chloride 89.0 L ABG Glucose 200 H Oxyhemoglobin Carboxyhemoglobin Sodium Potassium 3.5 L D Chloride 92.4 L Carbon Dioxide 42 H* BUN Creatinine < 0.2 L Glucose 123 H POC Glucose 108 H Hemoglobin A1c Magnesium Ferritin AST ALT Alkaline Phosphatase Lactate Dehydrogenase C-Reactive Protein Total Protein Albumin Arterial Blood Glucose 200 H Coronavirus (PCR) 07/24/21 07/24/21 07/24/21 11:01 16:56 22:06 WBC MCV MCH MCHC RDW Lymph % (Auto) [place] % (Auto) Eos % (Auto) Lymph # (Auto) [place] # (Auto) Eos # (Auto) Baso # (Auto) Seg Neutrophils % Seg Neuts % (Manual) Lymphocytes % (Manual) Seg Neutrophils # Seg Neutrophils # Man Lymphocytes # (Manual) D-Dimer ABG pH POC ABG pCO2 POC ABG pO2 ABG pO2 ABG HCO3 ABG O2 Saturation ABG Base Excess ABG Oxyhemoglobin ABG Sodium ABG Chloride ABG Glucose Oxyhemoglobin Carboxyhemoglobin Sodium Potassium Chloride Carbon Dioxide BUN Creatinine Glucose POC Glucose 171 H 111 H 136 H Hemoglobin A1c Magnesium Ferritin AST ALT Alkaline Phosphatase Lactate Dehydrogenase C-Reactive Protein Total Protein Albumin Arterial Blood Glucose Coronavirus (PCR) 07/25/21 07/25/21 07/25/21 07:40 10:59 11:58 WBC MCV MCH MCHC RDW Lymph % (Auto) [place] % (Auto) Eos % (Auto) Lymph # (Auto) [place] # (Auto) Eos # (Auto) Baso # (Auto) Seg Neutrophils % Seg Neuts % (Manual) Lymphocytes % (Manual) Seg Neutrophils # Seg Neutrophils # Man Lymphocytes # (Manual) D-Dimer ABG pH POC ABG pCO2 POC ABG pO2 ABG pO2 ABG HCO3 ABG O2 Saturation ABG Base Excess ABG Oxyhemoglobin ABG Sodium ABG Chloride ABG Glucose Oxyhemoglobin Carboxyhemoglobin Sodium Potassium Chloride 88.6 L Carbon Dioxide 43 H* BUN Creatinine 0.2 L Glucose 180 H POC Glucose 120 H 153 H Hemoglobin A1c Magnesium Ferritin AST ALT Alkaline Phosphatase Lactate Dehydrogenase C-Reactive Protein Total Protein Albumin Arterial Blood Glucose Coronavirus (PCR) 07/25/21 07/25/21 07/26/21 16:03 20:18 09:56 WBC MCV MCH MCHC RDW Lymph % (Auto) [place] % (Auto) Eos % (Auto) Lymph # (Auto) [place] # (Auto) Eos # (Auto) Baso # (Auto) Seg Neutrophils % Seg Neuts % (Manual) Lymphocytes % (Manual) Seg Neutrophils # Seg Neutrophils # Man Lymphocytes # (Manual) D-Dimer ABG pH POC ABG pCO2 POC ABG pO2 ABG pO2 ABG HCO3 ABG O2 Saturation ABG Base Excess ABG Oxyhemoglobin ABG Sodium ABG Chloride ABG Glucose Oxyhemoglobin Carboxyhemoglobin Sodium Potassium Chloride 91.3 L Carbon Dioxide 45 H* BUN Creatinine < 0.2 L Glucose 128 H POC Glucose 143 H 133 H Hemoglobin A1c Magnesium Ferritin AST ALT Alkaline Phosphatase Lactate Dehydrogenase C-Reactive Protein Total Protein Albumin 3.2 L Arterial Blood Glucose Coronavirus (PCR) 07/26/21 07/26/21 07/27/21 17:56 21:24 07:10 WBC MCV MCH MCHC RDW Lymph % (Auto) [place] % (Auto) Eos % (Auto) Lymph # (Auto) [place] # (Auto) Eos # (Auto) Baso # (Auto) Seg Neutrophils % Seg Neuts % (Manual) Lymphocytes % (Manual) Seg Neutrophils # Seg Neutrophils # Man Lymphocytes # (Manual) D-Dimer ABG pH POC ABG pCO2 POC ABG pO2 ABG pO2 ABG HCO3 ABG O2 Saturation ABG Base Excess ABG Oxyhemoglobin ABG Sodium ABG Chloride ABG Glucose Oxyhemoglobin Carboxyhemoglobin Sodium Potassium Chloride Carbon Dioxide BUN Creatinine Glucose POC Glucose 170 H 122 H 119 H Hemoglobin A1c Magnesium Ferritin AST ALT Alkaline Phosphatase Lactate Dehydrogenase C-Reactive Protein Total Protein Albumin Arterial Blood Glucose Coronavirus (PCR) 07/27/21 07/27/21 07/28/21 11:44 21:31 07:30 WBC MCV MCH MCHC RDW Lymph % (Auto) [place] % (Auto) Eos % (Auto) Lymph # (Auto) [place] # (Auto) Eos # (Auto) Baso # (Auto) Seg Neutrophils % Seg Neuts % (Manual) Lymphocytes % (Manual) Seg Neutrophils # Seg Neutrophils # Man Lymphocytes # (Manual) D-Dimer ABG pH POC ABG pCO2 POC ABG pO2 ABG pO2 ABG HCO3 ABG O2 Saturation ABG Base Excess ABG Oxyhemoglobin ABG Sodium ABG Chloride ABG Glucose Oxyhemoglobin Carboxyhemoglobin Sodium Potassium 3.4 L D Chloride 91.4 L Carbon Dioxide 39 H BUN Creatinine < 0.2 L Glucose 140 H POC Glucose 176 H 162 H Hemoglobin A1c Magnesium Ferritin AST ALT Alkaline Phosphatase Lactate Dehydrogenase C-Reactive Protein Total Protein Albumin Arterial Blood Glucose Coronavirus (PCR) 07/28/21 07/28/21 07/28/21 08:43 12:25 16:40 WBC MCV MCH MCHC RDW Lymph % (Auto) [place] % (Auto) Eos % (Auto) Lymph # (Auto) [place] # (Auto) Eos # (Auto) Baso # (Auto) Seg Neutrophils % Seg Neuts % (Manual) Lymphocytes % (Manual) Seg Neutrophils # Seg Neutrophils # Man Lymphocytes # (Manual) D-Dimer ABG pH POC ABG pCO2 POC ABG pO2 ABG pO2 ABG HCO3 ABG O2 Saturation ABG Base Excess ABG Oxyhemoglobin ABG Sodium ABG Chloride ABG Glucose Oxyhemoglobin Carboxyhemoglobin Sodium Potassium Chloride Carbon Dioxide BUN Creatinine Glucose POC Glucose 122 H 162 H 234 H Hemoglobin A1c Magnesium Ferritin AST ALT Alkaline Phosphatase Lactate Dehydrogenase C-Reactive Protein Total Protein Albumin Arterial Blood Glucose Coronavirus (PCR) 07/28/21 07/29/21 07/29/21 21:27 04:40 09:51 WBC MCV MCH MCHC RDW Lymph % (Auto) [place] % (Auto) Eos % (Auto) Lymph # (Auto) [place] # (Auto) Eos # (Auto) Baso # (Auto) Seg Neutrophils % Seg Neuts % (Manual) Lymphocytes % (Manual) Seg Neutrophils # Seg Neutrophils # Man Lymphocytes # (Manual) D-Dimer ABG pH POC ABG pCO2 POC ABG pO2 ABG pO2 ABG HCO3 ABG O2 Saturation ABG Base Excess ABG Oxyhemoglobin ABG Sodium ABG Chloride ABG Glucose Oxyhemoglobin Carboxyhemoglobin Sodium Potassium 3.4 L Chloride 92.3 L Carbon Dioxide 40 H BUN Creatinine < 0.2 L Glucose 125 H POC Glucose 155 H 112 H Hemoglobin A1c Magnesium Ferritin AST ALT Alkaline Phosphatase Lactate Dehydrogenase C-Reactive Protein Total Protein Albumin Arterial Blood Glucose Coronavirus (PCR) 07/29/21 07/29/21 07/29/21 12:03 16:39 21:28 WBC MCV MCH MCHC RDW Lymph % (Auto) [place] % (Auto) Eos % (Auto) Lymph # (Auto) [place] # (Auto) Eos # (Auto) Baso # (Auto) Seg Neutrophils % Seg Neuts % (Manual) Lymphocytes % (Manual) Seg Neutrophils # Seg Neutrophils # Man Lymphocytes # (Manual) D-Dimer ABG pH POC ABG pCO2 POC ABG pO2 ABG pO2 ABG HCO3 ABG O2 Saturation ABG Base Excess ABG Oxyhemoglobin ABG Sodium ABG Chloride ABG Glucose Oxyhemoglobin Carboxyhemoglobin Sodium Potassium Chloride Carbon Dioxide BUN Creatinine Glucose POC Glucose 188 H 141 H 130 H Hemoglobin A1c Magnesium Ferritin AST ALT Alkaline Phosphatase Lactate Dehydrogenase C-Reactive Protein Total Protein Albumin Arterial Blood Glucose Coronavirus (PCR) 07/30/21 07/30/21 07/30/21 08:37 11:56 22:25 WBC MCV MCH MCHC RDW Lymph % (Auto) [place] % (Auto) Eos % (Auto) Lymph # (Auto) [place] # (Auto) Eos # (Auto) Baso # (Auto) Seg Neutrophils % Seg Neuts % (Manual) Lymphocytes % (Manual) Seg Neutrophils # Seg Neutrophils # Man Lymphocytes # (Manual) D-Dimer ABG pH POC ABG pCO2 POC ABG pO2 ABG pO2 ABG HCO3 ABG O2 Saturation ABG Base Excess ABG Oxyhemoglobin ABG Sodium ABG Chloride ABG Glucose Oxyhemoglobin Carboxyhemoglobin Sodium Potassium Chloride Carbon Dioxide BUN Creatinine Glucose POC Glucose 133 H 156 H 118 H Hemoglobin A1c Magnesium Ferritin AST ALT Alkaline Phosphatase Lactate Dehydrogenase C-Reactive Protein Total Protein Albumin Arterial Blood Glucose Coronavirus (PCR) 07/31/21 07/31/21 07/31/21 06:43 11:55 16:39 WBC MCV MCH MCHC RDW Lymph % (Auto) [place] % (Auto) Eos % (Auto) Lymph # (Auto) [place] # (Auto) Eos # (Auto) Baso # (Auto) Seg Neutrophils % Seg Neuts % (Manual) Lymphocytes % (Manual) Seg Neutrophils # Seg Neutrophils # Man Lymphocytes # (Manual) D-Dimer ABG pH POC ABG pCO2 POC ABG pO2 ABG pO2 ABG HCO3 ABG O2 Saturation ABG Base Excess ABG Oxyhemoglobin ABG Sodium ABG Chloride ABG Glucose Oxyhemoglobin Carboxyhemoglobin Sodium Potassium Chloride Carbon Dioxide BUN Creatinine Glucose POC Glucose 115 H 114 H 185 H Hemoglobin A1c Magnesium Ferritin AST ALT Alkaline Phosphatase Lactate Dehydrogenase C-Reactive Protein Total Protein Albumin Arterial Blood Glucose Coronavirus (PCR) 07/31/21 08/01/21 08/01/21 23:22 11:35 15:34 WBC MCV MCH MCHC RDW Lymph % (Auto) [place] % (Auto) Eos % (Auto) Lymph # (Auto) [place] # (Auto) Eos # (Auto) Baso # (Auto) Seg Neutrophils % Seg Neuts % (Manual) Lymphocytes % (Manual) Seg Neutrophils # Seg Neutrophils # Man Lymphocytes # (Manual) D-Dimer ABG pH POC ABG pCO2 POC ABG pO2 ABG pO2 ABG HCO3 ABG O2 Saturation ABG Base Excess ABG Oxyhemoglobin ABG Sodium ABG Chloride ABG Glucose Oxyhemoglobin Carboxyhemoglobin Sodium Potassium Chloride Carbon Dioxide BUN Creatinine Glucose POC Glucose 213 H 122 H 142 H Hemoglobin A1c Magnesium Ferritin AST ALT Alkaline Phosphatase Lactate Dehydrogenase C-Reactive Protein Total Protein Albumin Arterial Blood Glucose Coronavirus (PCR) 08/01/21 08/02/21 08/02/21 22:15 07:41 11:58 WBC MCV MCH MCHC RDW Lymph % (Auto) [place] % (Auto) Eos % (Auto) Lymph # (Auto) [place] # (Auto) Eos # (Auto) Baso # (Auto) Seg Neutrophils % Seg Neuts % (Manual) Lymphocytes % (Manual) Seg Neutrophils # Seg Neutrophils # Man Lymphocytes # (Manual) D-Dimer ABG pH POC ABG pCO2 POC ABG pO2 ABG pO2 ABG HCO3 ABG O2 Saturation ABG Base Excess ABG Oxyhemoglobin ABG Sodium ABG Chloride ABG Glucose Oxyhemoglobin Carboxyhemoglobin Sodium Potassium Chloride Carbon Dioxide BUN Creatinine Glucose POC Glucose 121 H 109 H 136 H Hemoglobin A1c Magnesium Ferritin AST ALT Alkaline Phosphatase Lactate Dehydrogenase C-Reactive Protein Total Protein Albumin Arterial Blood Glucose Coronavirus (PCR) 08/02/21 08/03/21 08/03/21 21:19 07:47 11:18 WBC MCV MCH MCHC RDW Lymph % (Auto) [place] % (Auto) Eos % (Auto) Lymph # (Auto) [place] # (Auto) Eos # (Auto) Baso # (Auto) Seg Neutrophils % Seg Neuts % (Manual) Lymphocytes % (Manual) Seg Neutrophils # Seg Neutrophils # Man Lymphocytes # (Manual) D-Dimer ABG pH POC ABG pCO2 POC ABG pO2 ABG pO2 ABG HCO3 ABG O2 Saturation ABG Base Excess ABG Oxyhemoglobin ABG Sodium ABG Chloride ABG Glucose Oxyhemoglobin Carboxyhemoglobin Sodium Potassium Chloride Carbon Dioxide BUN Creatinine Glucose POC Glucose 159 H 111 H 202 H Hemoglobin A1c Magnesium Ferritin AST ALT Alkaline Phosphatase Lactate Dehydrogenase C-Reactive Protein Total Protein Albumin Arterial Blood Glucose Coronavirus (PCR) 08/03/21 08/03/21 08/04/21 16:47 21:26 07:57 WBC MCV MCH MCHC RDW Lymph % (Auto) [place] % (Auto) Eos % (Auto) Lymph # (Auto) [place] # (Auto) Eos # (Auto) Baso # (Auto) Seg Neutrophils % Seg Neuts % (Manual) Lymphocytes % (Manual) Seg Neutrophils # Seg Neutrophils # Man Lymphocytes # (Manual) D-Dimer ABG pH POC ABG pCO2 POC ABG pO2 ABG pO2 ABG HCO3 ABG O2 Saturation ABG Base Excess ABG Oxyhemoglobin ABG Sodium ABG Chloride ABG Glucose Oxyhemoglobin Carboxyhemoglobin Sodium Potassium Chloride Carbon Dioxide BUN Creatinine Glucose POC Glucose 133 H 148 H 129 H Hemoglobin A1c Magnesium Ferritin AST ALT Alkaline Phosphatase Lactate Dehydrogenase C-Reactive Protein Total Protein Albumin Arterial Blood Glucose Coronavirus (PCR) 08/04/21 08/04/21 08/04/21 08:05 11:42 16:53 WBC MCV MCH MCHC RDW Lymph % (Auto) [place] % (Auto) Eos % (Auto) Lymph # (Auto) [place] # (Auto) Eos # (Auto) Baso # (Auto) Seg Neutrophils % Seg Neuts % (Manual) Lymphocytes % (Manual) Seg Neutrophils # Seg Neutrophils # Man Lymphocytes # (Manual) D-Dimer ABG pH POC ABG pCO2 POC ABG pO2 ABG pO2 ABG HCO3 ABG O2 Saturation ABG Base Excess ABG Oxyhemoglobin ABG Sodium ABG Chloride ABG Glucose Oxyhemoglobin Carboxyhemoglobin Sodium Potassium Chloride Carbon Dioxide BUN Creatinine Glucose POC Glucose 145 H 187 H 112 H Hemoglobin A1c Magnesium Ferritin AST ALT Alkaline Phosphatase Lactate Dehydrogenase C-Reactive Protein Total Protein Albumin Arterial Blood Glucose Coronavirus (PCR) 08/04/21 08/05/21 08/05/21 21:27 07:35 11:19 WBC MCV MCH MCHC RDW Lymph % (Auto) [place] % (Auto) Eos % (Auto) Lymph # (Auto) [place] # (Auto) Eos # (Auto) Baso # (Auto) Seg Neutrophils % Seg Neuts % (Manual) Lymphocytes % (Manual) Seg Neutrophils # Seg Neutrophils # Man Lymphocytes # (Manual) D-Dimer ABG pH POC ABG pCO2 POC ABG pO2 ABG pO2 ABG HCO3 ABG O2 Saturation ABG Base Excess ABG Oxyhemoglobin ABG Sodium ABG Chloride ABG Glucose Oxyhemoglobin Carboxyhemoglobin Sodium Potassium Chloride Carbon Dioxide BUN Creatinine Glucose POC Glucose 189 H 146 H 244 H Hemoglobin A1c Magnesium Ferritin AST ALT Alkaline Phosphatase Lactate Dehydrogenase C-Reactive Protein Total Protein Albumin Arterial Blood Glucose Coronavirus (PCR) 08/05/21 08/06/21 08/06/21 22:16 07:29 11:16 WBC MCV MCH MCHC RDW Lymph % (Auto) [place] % (Auto) Eos % (Auto) Lymph # (Auto) [place] # (Auto) Eos # (Auto) Baso # (Auto) Seg Neutrophils % Seg Neuts % (Manual) Lymphocytes % (Manual) Seg Neutrophils # Seg Neutrophils # Man Lymphocytes # (Manual) D-Dimer ABG pH POC ABG pCO2 POC ABG pO2 ABG pO2 ABG HCO3 ABG O2 Saturation ABG Base Excess ABG Oxyhemoglobin ABG Sodium ABG Chloride ABG Glucose Oxyhemoglobin Carboxyhemoglobin Sodium Potassium Chloride Carbon Dioxide BUN Creatinine Glucose POC Glucose 122 H 128 H 228 H Hemoglobin A1c Magnesium Ferritin AST ALT Alkaline Phosphatase Lactate Dehydrogenase C-Reactive Protein Total Protein Albumin Arterial Blood Glucose Coronavirus (PCR) 08/06/21 08/07/21 08/07/21 21:13 07:17 11:54 WBC MCV MCH MCHC RDW Lymph % (Auto) [place] % (Auto) Eos % (Auto) Lymph # (Auto) [place] # (Auto) Eos # (Auto) Baso # (Auto) Seg Neutrophils % Seg Neuts % (Manual) Lymphocytes % (Manual) Seg Neutrophils # Seg Neutrophils # Man Lymphocytes # (Manual) D-Dimer ABG pH POC ABG pCO2 POC ABG pO2 ABG pO2 ABG HCO3 ABG O2 Saturation ABG Base Excess ABG Oxyhemoglobin ABG Sodium ABG Chloride ABG Glucose Oxyhemoglobin Carboxyhemoglobin Sodium Potassium Chloride Carbon Dioxide BUN Creatinine Glucose POC Glucose 198 H 134 H 107 H Hemoglobin A1c Magnesium Ferritin AST ALT Alkaline Phosphatase Lactate Dehydrogenase C-Reactive Protein Total Protein Albumin Arterial Blood Glucose Coronavirus (PCR) 08/07/21 08/07/21 08/08/21 16:26 21:15 04:51 WBC MCV MCH MCHC RDW Lymph % (Auto) [place] % (Auto) Eos % (Auto) Lymph # (Auto) [place] # (Auto) Eos # (Auto) Baso # (Auto) Seg Neutrophils % Seg Neuts % (Manual) Lymphocytes % (Manual) Seg Neutrophils # Seg Neutrophils # Man Lymphocytes # (Manual) D-Dimer ABG pH POC ABG pCO2 POC ABG pO2 ABG pO2 ABG HCO3 ABG O2 Saturation ABG Base Excess ABG Oxyhemoglobin ABG Sodium ABG Chloride ABG Glucose Oxyhemoglobin Carboxyhemoglobin Sodium Potassium Chloride 92.9 L Carbon Dioxide 39 H BUN Creatinine < 0.2 L Glucose 105 H POC Glucose 144 H 228 H Hemoglobin A1c Magnesium Ferritin AST ALT Alkaline Phosphatase Lactate Dehydrogenase C-Reactive Protein Total Protein Albumin Arterial Blood Glucose Coronavirus (PCR) 08/08/21 08/08/21 08/08/21 11:40 17:09 21:22 WBC MCV MCH MCHC RDW Lymph % (Auto) [place] % (Auto) Eos % (Auto) Lymph # (Auto) [place] # (Auto) Eos # (Auto) Baso # (Auto) Seg Neutrophils % Seg Neuts % (Manual) Lymphocytes % (Manual) Seg Neutrophils # Seg Neutrophils # Man Lymphocytes # (Manual) D-Dimer ABG pH POC ABG pCO2 POC ABG pO2 ABG pO2 ABG HCO3 ABG O2 Saturation ABG Base Excess ABG Oxyhemoglobin ABG Sodium ABG Chloride ABG Glucose Oxyhemoglobin Carboxyhemoglobin Sodium Potassium Chloride Carbon Dioxide BUN Creatinine Glucose POC Glucose 137 H 137 H 152 H Hemoglobin A1c Magnesium Ferritin AST ALT Alkaline Phosphatase Lactate Dehydrogenase C-Reactive Protein Total Protein Albumin Arterial Blood Glucose Coronavirus (PCR) 08/09/21 08/09/21 08/09/21 07:42 12:26 16:41 WBC MCV MCH MCHC RDW Lymph % (Auto) [place] % (Auto) Eos % (Auto) Lymph # (Auto) [place] # (Auto) Eos # (Auto) Baso # (Auto) Seg Neutrophils % Seg Neuts % (Manual) Lymphocytes % (Manual) Seg Neutrophils # Seg Neutrophils # Man Lymphocytes # (Manual) D-Dimer ABG pH POC ABG pCO2 POC ABG pO2 ABG pO2 ABG HCO3 ABG O2 Saturation ABG Base Excess ABG Oxyhemoglobin ABG Sodium ABG Chloride ABG Glucose Oxyhemoglobin Carboxyhemoglobin Sodium Potassium Chloride Carbon Dioxide BUN Creatinine Glucose POC Glucose 120 H 132 H 116 H Hemoglobin A1c Magnesium Ferritin AST ALT Alkaline Phosphatase Lactate Dehydrogenase C-Reactive Protein Total Protein Albumin Arterial Blood Glucose Coronavirus (PCR) 08/09/21 08/10/21 08/10/21 21:13 07:41 11:33 WBC MCV MCH MCHC RDW Lymph % (Auto) [place] % (Auto) Eos % (Auto) Lymph # (Auto) [place] # (Auto) Eos # (Auto) Baso # (Auto) Seg Neutrophils % Seg Neuts % (Manual) Lymphocytes % (Manual) Seg Neutrophils # Seg Neutrophils # Man Lymphocytes # (Manual) D-Dimer ABG pH POC ABG pCO2 POC ABG pO2 ABG pO2 ABG HCO3 ABG O2 Saturation ABG Base Excess ABG Oxyhemoglobin ABG Sodium ABG Chloride ABG Glucose Oxyhemoglobin Carboxyhemoglobin Sodium Potassium Chloride Carbon Dioxide BUN Creatinine Glucose POC Glucose 205 H 125 H 125 H Hemoglobin A1c Magnesium Ferritin AST ALT Alkaline Phosphatase Lactate Dehydrogenase C-Reactive Protein Total Protein Albumin Arterial Blood Glucose Coronavirus (PCR) 08/10/21 08/10/21 08/11/21 15:21 21:07 07:22 WBC MCV MCH MCHC RDW Lymph % (Auto) [place] % (Auto) Eos % (Auto) Lymph # (Auto) [place] # (Auto) Eos # (Auto) Baso # (Auto) Seg Neutrophils % Seg Neuts % (Manual) Lymphocytes % (Manual) Seg Neutrophils # Seg Neutrophils # Man Lymphocytes # (Manual) D-Dimer ABG pH POC ABG pCO2 POC ABG pO2 ABG pO2 ABG HCO3 ABG O2 Saturation ABG Base Excess ABG Oxyhemoglobin ABG Sodium ABG Chloride ABG Glucose Oxyhemoglobin Carboxyhemoglobin Sodium Potassium Chloride Carbon Dioxide BUN Creatinine Glucose POC Glucose 188 H 177 H 123 H Hemoglobin A1c Magnesium Ferritin AST ALT Alkaline Phosphatase Lactate Dehydrogenase C-Reactive Protein Total Protein Albumin Arterial Blood Glucose Coronavirus (PCR)
[2021-08-11] MEDS: ALPRAZolam 1 MG TAB PO SCH ×2 (11:03→22:44)
[2021-08-11] MEDS: INSULIN GLARGINE 100 UNITS/ML SUB-Q SCH (11:03)
[2021-08-11] MEDS: CHOLECALCIFEROL (VIT D3) 1000 UNIT (25 mcg) TAB PO SCH (11:03)
[2021-08-11] MEDS: ZINC SULFATE 220 MG CAP PO SCH ×2 (11:03→22:46)
[2021-08-11] MEDS: ACETAMINOPHEN 325 MG TAB PO PRN ×2 (11:07→22:48)
[2021-08-11] MEDS: POLYETHYLENE GLYCOL 3350 17 GM POWDER PO PRN (11:18)
[2021-08-11] MEDS ORDERED: ALPRAZolam 1 MG TAB PO ONE (17:00)
[2021-08-11] MEDS: ENOXAPARIN 40 MG/0.4 ML INJ SUB-Q SCH (22:46)
[2021-08-12] MEDS: INSULIN LISPRO 100 UNIT/ML SUB-Q SCH ×4 (08:02→21:55)
--- NOTE | 2021-08-12 08:16 | Progress Note ---
Assessment and Plan Assessment and plan: #Acute hypoxic/hypercapneic respiratory failure #Severe ARDS -stable -refusing BiPAP, currently on HFNC -plan to maintain SpO2 >88% -s/p prednisone taper -encouraged patient to prone herself when she is awake -repeat CXR ordered -Pulmonology following, assistance appreciated #Metabolic alkalosis -stable #Heart failure with preserved ejection fraction -TTE: LVEF 55-60% with diastolic dysfunction -will continue to monitor for signs of fluid overload #COVID-19 infection -Continue Covid vitamins #Type 2 diabetes -continue Lantus 5 units daily and sliding scale insulin #Anxiety -Stable -continue xanax #DVT prophylaxis -Lovenox 40 daily #Deconditioning -Will benefit from SNF after prolonged hospital stay Resolved issues #Sepsis secondary to COVID-19 #Iatrogenic diarrhea #Hypomagnesemia #Hyponatremia #Protein calorie malnutrition #Dysuria #Hypokalemia #Possible UTI Disposition Plan: continue medical management Total Time Spent with Patient (Minutes): 10 minutes History Interval history: No acute events overnight. On HFNC. No complaints at this time. Hospitalist Physical - Physical exam Narrative exam: GENERAL: Well-developed well-nourished. Lying in bed in no acute distress. HEENT: HFNC in place. CHEST/LUNGS: Coarse breath sounds bilaterally. HEART/CARDIOVASCULAR: RRR. No murmur, rubs or gallops appreciated. ABDOMEN: +BS. NT/ND. PSYCH: Cooperative. - Constitutional Vitals: Temp Pulse Resp BP Pulse Ox 97.4 F L 92 H 25 H 128/74 99 08/12/21 04:00 08/12/21 07:00 08/12/21 07:00 08/12/21 07:00 08/12/21 07:00 General appearance: Present: no acute distress, well-nourished, other (Looks tired) Results - Labs CBC & Chem 7: 07/23/21 04:35 08/08/21 04:51 Labs: Laboratory Last Values WBC 10.8 K/mm3 (4.5-11.0) 07/23/21 04:35 RBC 3.84 M/mm3 (3.65-5.03) 07/23/21 04:35 Hgb 12.1 gm/dl (10.1-14.3) 07/23/21 04:35 Hct 37.6 % (30.3-42.9) 07/23/21 04:35 MCV 98 fl (79-97) H 07/23/21 04:35 MCH 32 pg (28-32) 07/23/21 04:35 MCHC 32 % (30-34) 07/23/21 04:35 RDW 16.2 % (13.2-15.2) H 07/23/21 04:35 Plt Count 367 K/mm3 (140-440) 07/23/21 04:35 Lymph % (Auto) 7.9 % (13.4-35.0) L 07/23/21 04:35 [place] % (Auto) 5.6 % (0.0-7.3) 07/23/21 04:35 Eos % (Auto) 0.8 % (0.0-4.3) 07/23/21 04:35 Baso % (Auto) 0.4 % (0.0-1.8) 07/23/21 04:35 Lymph # (Auto) 0.9 K/mm3 (1.2-5.4) L 07/23/21 04:35 [place] # (Auto) 0.6 K/mm3 (0.0-0.8) 07/23/21 04:35 Eos # (Auto) 0.1 K/mm3 (0.0-0.4) 07/23/21 04:35 Baso # (Auto) 0.0 K/mm3 (0.0-0.1) 07/23/21 04:35 Add Manual Diff Complete 07/09/21 04:45 Total Counted 100 07/09/21 04:45 Seg Neutrophils % 85.3 % (40.0-70.0) H 07/23/21 04:35 Seg Neuts % (Manual) 82.0 % (40.0-70.0) H 07/09/21 04:45 Band Neutrophils % 1.0 % 05/12/21 04:05 Lymphocytes % (Manual) 13.0 % (13.4-35.0) L 07/09/21 04:45 Monocytes % (Manual) 3.0 % (0.0-7.3) 07/09/21 04:45 Eosinophils % (Manual) 2.0 % (0.0-4.3) 07/09/21 04:45 Nucleated RBC % Not Reportable 07/09/21 04:45 Seg Neutrophils # 9.2 K/mm3 (1.8-7.7) H 07/23/21 04:35 Seg Neutrophils # Man 7.8 K/mm3 (1.8-7.7) H 07/09/21 04:45 Band Neutrophils # 0.0 K/mm3 07/09/21 04:45 Lymphocytes # (Manual) 1.2 K/mm3 (1.2-5.4) 07/09/21 04:45 Abs React Lymphs (Man) 0.0 K/mm3 07/09/21 04:45 Monocytes # (Manual) 0.3 K/mm3 (0.0-0.8) 07/09/21 04:45 Eosinophils # (Manual) 0.2 K/mm3 (0.0-0.4) 07/09/21 04:45 Basophils # (Manual) 0.0 K/mm3 (0.0-0.1) 07/09/21 04:45 Metamyelocytes # 0.0 K/mm3 07/09/21 04:45 Myelocytes # 0.0 K/mm3 07/09/21 04:45 Promyelocytes # 0.0 K/mm3 07/09/21 04:45 Blast Cells # 0.0 K/mm3 07/09/21 04:45 WBC Morphology Not Reportable 07/09/21 04:45 Hypersegmented Neuts Not Reportable 07/09/21 04:45 Hyposegmented Neuts Not Reportable 07/09/21 04:45 Hypogranular Neuts Not Reportable 07/09/21 04:45 Smudge Cells Not Reportable 07/09/21 04:45 Toxic Granulation Not Reportable 07/09/21 04:45 Toxic Vacuolation Not Reportable 07/09/21 04:45 Dohle Bodies Not Reportable 07/09/21 04:45 Pelger-Huet Anomaly Not Reportable 07/09/21 04:45 Janelle Rods Not Reportable 07/09/21 04:45 Platelet Estimate Consistent w auto 07/09/21 04:45 Clumped Platelets Not Reportable 07/09/21 04:45 Plt Clumps, EDTA Not Reportable 07/09/21 04:45 Large Platelets Not Reportable 07/09/21 04:45 Giant Platelets Rare 07/09/21 04:45 Platelet Satelliting Not Reportable 07/09/21 04:45 Plt Morphology Comment Not Reportable 07/09/21 04:45 RBC Morphology Not Reportable 07/09/21 04:45 Dimorphic RBCs Not Reportable 07/09/21 04:45 Polychromasia Not Reportable 07/09/21 04:45 Hypochromasia Few 07/09/21 04:45 Poikilocytosis Not Reportable 07/09/21 04:45 Anisocytosis Not Reportable 07/09/21 04:45 Microcytosis Not Reportable 07/09/21 04:45 Macrocytosis Not Reportable 07/09/21 04:45 Spherocytes Not Reportable 07/09/21 04:45 Pappenheimer Bodies Not Reportable 07/09/21 04:45 Sickle Cells Not Reportable 07/09/21 04:45 Target Cells Not Reportable 07/09/21 04:45 Tear Drop Cells Not Reportable 07/09/21 04:45 Ovalocytes Not Reportable 07/09/21 04:45 Stomatocytes 1+ 07/09/21 04:45 Helmet Cells Not Reportable 07/09/21 04:45 Ahuja-Hepburn Bodies Not Reportable 07/09/21 04:45 [place] Rings Not Reportable 07/09/21 04:45 [place] Cells Not Reportable 07/09/21 04:45 Bite Cells Not Reportable 07/09/21 04:45 Crenated Cell Not Reportable 07/09/21 04:45 Elliptocytes Not Reportable 07/09/21 04:45 Acanthocytes (Spur) Not Reportable 07/09/21 04:45 Rouleaux Not Reportable 07/09/21 04:45 Hemoglobin C Crystals Not Reportable 07/09/21 04:45 Schistocytes Not Reportable 07/09/21 04:45 Malaria parasites Not Reportable 07/09/21 04:45 Justin Bodies Not Reportable 07/09/21 04:45 Hem Pathologist Commnt No 07/09/21 04:45 D-Dimer 638.35 ng/mlDDU (0-234) H 07/09/21 04:45 ABG pH 7.417 (7.320-7.450) 07/23/21 18:11 POC ABG pCO2 78.3 mmHg (32.0-48.0) H 07/23/21 18:11 ABG pCO2 85.7 mm Hg 07/22/21 12:05 POC ABG pO2 80.7 mmHg (83-108) L 07/23/21 18:11 ABG pO2 66.1 mm Hg (80.0-90.0) L 07/22/21 12:05 POC ABG HCO3 49.3 07/23/21 18:11 ABG HCO3 45.0 mmol/L (20.0-26.0) H 07/22/21 12:05 ABG O2 Saturation 96.7 (0-100) 07/23/21 18:11 ABG O2 Content 16.8 (0.0-44) 07/22/21 12:05 POC ABG Base Excess 20.5 07/23/21 18:11 ABG Base Excess 15.2 mmol/L (-2.0-3.0) H 07/22/21 12:05 ABG Hemoglobin 12.6 (12.0-17.5) 07/23/21 18:11 ABG Oxyhemoglobin 95.7 (94-98) 07/23/21 18:11 ABG Carboxyhemoglobin 1.9 % (0.0-5.0) 07/22/21 12:05 ABG Methemoglobin 0.3 (0.0-1.5) 07/23/21 18:11 ABG Sodium 134.9 mmol/L (136.0-145.0) L 07/23/21 18:11 ABG Potassium 3.9 mmol/L (3.40-4.50) 07/23/21 18:11 ABG Chloride 89.0 mmol/L (98-107) L 07/23/21 18:11 ABG Glucose 200 mg/dL (65-95) H 07/23/21 18:11 Oxyhemoglobin 91.9 % (95.0-99.0) L 07/22/21 12:05 Carboxyhemoglobin 0.7 (0.5-1.5) 07/23/21 18:11 FiO2 100 % 07/22/21 12:05 FiO2 % 100.0 07/23/21 18:11 Sodium 140 mmol/L (137-145) 08/08/21 04:51 Potassium 4.1 mmol/L (3.6-5.0) 08/08/21 04:51 Chloride 92.9 mmol/L (98-107) L 08/08/21 04:51 Carbon Dioxide 39 mmol/L (22-30) H 08/08/21 04:51 Anion Gap 12 mmol/L 08/08/21 04:51 BUN 9 mg/dL (7-17) 08/08/21 04:51 Creatinine < 0.2 mg/dL (0.6-1.2) L 08/08/21 04:51 Estimated GFR > 60 ml/min 08/08/21 04:51 BUN/Creatinine Ratio 45 % 08/08/21 04:51 Glucose 105 mg/dL (65-100) H 08/08/21 04:51 POC Glucose 151 mg/dL (70-105) H 08/12/21 07:49 Hemoglobin A1c 8.5 % (4-6) H 04/18/21 07:36 Calcium 9.4 mg/dL (8.4-10.2) 08/08/21 04:51 Phosphorus 3.70 mg/dL (2.5-4.5) 07/23/21 04:35 Magnesium 2.10 mg/dL (1.7-2.3) 07/23/21 04:35 Ferritin 155.9 ng/mL (10.0-200.0) 07/09/21 04:45 Total Bilirubin < 0.20 mg/dL (0.1-1.2) 07/26/21 09:56 AST 23 units/L (5-40) 07/26/21 09:56 ALT 25 units/L (7-56) 07/26/21 09:56 Alkaline Phosphatase 69 units/L (35-129) 07/26/21 09:56 Lactate Dehydrogenase 475 units/L (91-180) H 06/05/21 05:26 C-Reactive Protein 4.30 mg/dL (0.00-1.30) H 07/09/21 04:45 NT-Pro-B Natriuret Pep 59.45 pg/mL (0-450) 07/07/21 13:40 Total Protein 8.1 g/dL (6.3-8.2) 07/26/21 09:56 Albumin 3.2 g/dL (3.9-5) L 07/26/21 09:56 Albumin/Globulin Ratio 0.7 % 07/26/21 09:56 Triglycerides < 9 mg/dL (2-149) 05/03/21 04:30 Procalcitonin < 0.05 ng/mL (<0.15) 05/23/21 09:50 Arterial Blood Glucose 200 mg/dL (65-95) H 07/23/21 18:11 Arterial Blood Ionized Calcium 4.6 mg/dL (4.6-5.3) 07/23/21 18:11 Coronavirus (PCR) Negative (Negative) 07/25/21 Unknown Amos/IV: Voiding Method External Female Catheter Active Medications - Current Medications Current Medications: Generic Name Dose Route Start Last Admin Trade Name Freq PRN Reason Stop Dose Admin Acetaminophen 650 mg 07/02/21 17:48 08/11/21 22:48 Acetaminophen 325 Mg Tab PO 650 mg Q4H PRN Administration Pain, Mild (1-3) Albuterol 2.5 mg 04/16/21 13:39 04/21/21 20:39 Albuterol 2.5 Mg/3 Ml Nebu IH 2.5 mg Q4HRT PRN Administration Shortness Of Breath Alprazolam 2 mg 07/29/21 22:00 08/11/21 22:44 Alprazolam 1 Mg Tab PO 2 mg BID TUTU Administration Calcium Carbonate/Glycine 500 mg 07/24/21 10:43 Calcium Carbonate 500 Mg Tab Chew PO BID PRN reflux Cholecalciferol 1,000 unit 04/17/21 10:00 08/11/21 11:03 Cholecalciferol (Vit D3) 1000 Unit (25 Mcg) Tab PO 1,000 unit QDAY TUTU Administration Enoxaparin Sodium 40 mg 05/19/21 22:00 08/11/21 22:46 Enoxaparin 40 Mg/0.4 Ml Inj SUB-Q 40 mg QDAY@2200 TUTU Administration Protocol Insulin Glargine 5 units 07/25/21 10:00 08/11/21 11:03 Insulin Glargine 100 Units/Ml SUB-Q 5 units DAILY TUTU Administration Insulin Human Lispro 0 unit 05/18/21 12:00 08/12/21 08:02 Insulin Lispro 100 Unit/Ml SUB-Q 3 unit ACHS TUTU Administration Protocol Ondansetron HCl 4 mg 04/16/21 14:00 05/30/21 10:07 Ondansetron 4 Mg/2 Ml Inj IV 4 mg Q8H PRN Administration Nausea And Vomiting Polyethylene Glycol 17 gm 07/16/21 20:00 08/11/21 11:18 Polyethylene Glycol 3350 17 Gm Powder PO 17 gm QDAY PRN Administration Constipation Sodium Chloride 10 ml 04/16/21 13:39 08/09/21 10:00 Sodium Chloride 0.9% 10 Ml Flush Syringe IV 10 ml PRN PRN Administration LINE FLUSH Zinc Sulfate 220 mg 04/16/21 22:00 08/11/21 22:46 Zinc Sulfate 220 Mg Cap PO 220 mg BID TUTU Administration Nutrition/Malnutrition Assess - Dietary Evaluation Nutrition/Malnutrition Findings: Nutrition Notes Start: 04/23/21 07:41 Freq: Status: Active Protocol: Document 08/09/21 17:26 SAQIB (Rec: 08/09/21 17:30 SAQIB [id number]) Nutrition Notes Initial or Follow up Brief Note Subjective/Other Information RD brief note to set next F/U on 09/12 Nutrition Intervention Follow-Up By: 09/12/21 Additional Comments Continue monitoring food tolerance, %PO intake of meals , Hydration, and BM.
[2021-08-12] MEDS: INSULIN GLARGINE 100 UNITS/ML SUB-Q SCH (10:32)
[2021-08-12] MEDS: ZINC SULFATE 220 MG CAP PO SCH ×2 (10:32→21:45)
[2021-08-12] MEDS: CHOLECALCIFEROL (VIT D3) 1000 UNIT (25 mcg) TAB PO SCH (10:32)
[2021-08-12] MEDS: ALPRAZolam 1 MG TAB PO SCH ×3 (10:32→21:45)
--- NOTE | 2021-08-12 10:38 | XRay Report ---
CHEST 1 VIEW 08/12/2021 10:21 AM INDICATION / CLINICAL INFORMATION: Persistent hypoxemia.. COMPARISON: 07/22/2021 FINDINGS: SUPPORT DEVICES: Right PICC line in satisfactory position HEART / MEDIASTINUM: No significant abnormality. LUNGS / PLEURA: Diffuse opacities in bilateral lungs persist No pneumothorax. ADDITIONAL FINDINGS: No significant additional findings. IMPRESSION: 1. Diffuse bilateral pulmonary opacities persist. Signer Name: Yunior Roberson MD Signed: 08/12/2021 10:34 AM Workstation Name: [id number]
[2021-08-12] MEDS: ACETAMINOPHEN 325 MG TAB PO PRN (21:46)
[2021-08-12] MEDS: ENOXAPARIN 40 MG/0.4 ML INJ SUB-Q SCH (21:46)
[2021-08-13] MEDS: INSULIN LISPRO 100 UNIT/ML SUB-Q SCH ×5 (09:01→22:47)
[2021-08-13] MEDS: CHOLECALCIFEROL (VIT D3) 1000 UNIT (25 mcg) TAB PO SCH (09:17)
[2021-08-13] MEDS: ALPRAZolam 1 MG TAB PO SCH ×2 (09:17→22:45)
[2021-08-13] MEDS: INSULIN GLARGINE 100 UNITS/ML SUB-Q SCH (10:04)
--- NOTE | 2021-08-13 19:35 | Progress Note ---
Assessment and Plan Assessment and plan: #Acute hypoxic/hypercapneic respiratory failure #Severe ARDS -stable -refusing BiPAP, currently on HFNC -plan to maintain SpO2 >88% -s/p prednisone taper -encouraged patient to prone herself when she is awake -repeat CXR ordered -Pulmonology following, assistance appreciated #Metabolic alkalosis -stable #Heart failure with preserved ejection fraction -TTE: LVEF 55-60% with diastolic dysfunction -will continue to monitor for signs of fluid overload #COVID-19 infection -Continue Covid vitamins #Type 2 diabetes -continue Lantus 5 units daily and sliding scale insulin #Anxiety -Stable -continue xanax #DVT prophylaxis -Lovenox 40 daily #Deconditioning -Will benefit from SNF after prolonged hospital stay Resolved issues #Sepsis secondary to COVID-19 #Iatrogenic diarrhea #Hypomagnesemia #Hyponatremia #Protein calorie malnutrition #Dysuria #Hypokalemia #Possible UTI #Advanced care planning -Disease education conducted, care plan discussed, diagnoses discussed, prognosis discussed, and patient acknowledges understanding with care plan -Time: +30 minutes Disposition Plan: Continue medical management Total Time Spent with Patient (Minutes): 30 minutes History Interval history: No acute events overnight. Hospitalist Physical - Constitutional Vitals: Temp Pulse Resp BP Pulse Ox 97.2 F L 107 H 44 H 119/77 94 08/13/21 16:00 08/13/21 18:00 08/13/21 18:00 08/13/21 18:00 08/13/21 18:00 General appearance: Present: no acute distress, well-nourished, other (Looks tired) - EENT Eyes: Present: PERRL, EOM intact ENT: hearing intact, clear oral mucosa, dentition normal - Neck Neck: Present: supple, normal ROM - Respiratory Respiratory effort: normal Respiratory: bilateral: diminished (On high flow nasal cannula) - Cardiovascular Rhythm: regular Heart Sounds: Present: S1 & S2 - Extremities Extremities: no ischemia, pulses intact, pulses symmetrical, No edema, normal temperature, normal color, Full ROM Peripheral Pulses: within normal limits - Abdominal General gastrointestinal: soft, non-tender, non-distended, normal bowel sounds - Integumentary Integumentary: Present: clear, warm, dry - Psychiatric Psychiatric: appropriate mood/affect, intact judgment & insight, cooperative - Neurologic Neurologic: CNII-XII intact, moves all extremities - Allied Health Allied health notes reviewed: nursing Results - Labs CBC & Chem 7: 07/23/21 04:35 08/08/21 04:51 Labs: Laboratory Last Values WBC 10.8 K/mm3 (4.5-11.0) 07/23/21 04:35 RBC 3.84 M/mm3 (3.65-5.03) 07/23/21 04:35 Hgb 12.1 gm/dl (10.1-14.3) 07/23/21 04:35 Hct 37.6 % (30.3-42.9) 07/23/21 04:35 MCV 98 fl (79-97) H 07/23/21 04:35 MCH 32 pg (28-32) 07/23/21 04:35 MCHC 32 % (30-34) 07/23/21 04:35 RDW 16.2 % (13.2-15.2) H 07/23/21 04:35 Plt Count 367 K/mm3 (140-440) 07/23/21 04:35 Lymph % (Auto) 7.9 % (13.4-35.0) L 07/23/21 04:35 [place] % (Auto) 5.6 % (0.0-7.3) 07/23/21 04:35 Eos % (Auto) 0.8 % (0.0-4.3) 07/23/21 04:35 Baso % (Auto) 0.4 % (0.0-1.8) 07/23/21 04:35 Lymph # (Auto) 0.9 K/mm3 (1.2-5.4) L 07/23/21 04:35 [place] # (Auto) 0.6 K/mm3 (0.0-0.8) 07/23/21 04:35 Eos # (Auto) 0.1 K/mm3 (0.0-0.4) 07/23/21 04:35 Baso # (Auto) 0.0 K/mm3 (0.0-0.1) 07/23/21 04:35 Add Manual Diff Complete 07/09/21 04:45 Total Counted 100 07/09/21 04:45 Seg Neutrophils % 85.3 % (40.0-70.0) H 07/23/21 04:35 Seg Neuts % (Manual) 82.0 % (40.0-70.0) H 07/09/21 04:45 Band Neutrophils % 1.0 % 05/12/21 04:05 Lymphocytes % (Manual) 13.0 % (13.4-35.0) L 07/09/21 04:45 Monocytes % (Manual) 3.0 % (0.0-7.3) 07/09/21 04:45 Eosinophils % (Manual) 2.0 % (0.0-4.3) 07/09/21 04:45 Nucleated RBC % Not Reportable 07/09/21 04:45 Seg Neutrophils # 9.2 K/mm3 (1.8-7.7) H 07/23/21 04:35 Seg Neutrophils # Man 7.8 K/mm3 (1.8-7.7) H 07/09/21 04:45 Band Neutrophils # 0.0 K/mm3 07/09/21 04:45 Lymphocytes # (Manual) 1.2 K/mm3 (1.2-5.4) 07/09/21 04:45 Abs React Lymphs (Man) 0.0 K/mm3 07/09/21 04:45 Monocytes # (Manual) 0.3 K/mm3 (0.0-0.8) 07/09/21 04:45 Eosinophils # (Manual) 0.2 K/mm3 (0.0-0.4) 07/09/21 04:45 Basophils # (Manual) 0.0 K/mm3 (0.0-0.1) 07/09/21 04:45 Metamyelocytes # 0.0 K/mm3 07/09/21 04:45 Myelocytes # 0.0 K/mm3 07/09/21 04:45 Promyelocytes # 0.0 K/mm3 07/09/21 04:45 Blast Cells # 0.0 K/mm3 07/09/21 04:45 WBC Morphology Not Reportable 07/09/21 04:45 Hypersegmented Neuts Not Reportable 07/09/21 04:45 Hyposegmented Neuts Not Reportable 07/09/21 04:45 Hypogranular Neuts Not Reportable 07/09/21 04:45 Smudge Cells Not Reportable 07/09/21 04:45 Toxic Granulation Not Reportable 07/09/21 04:45 Toxic Vacuolation Not Reportable 07/09/21 04:45 Dohle Bodies Not Reportable 07/09/21 04:45 Pelger-Huet Anomaly Not Reportable 07/09/21 04:45 Janelle Rods Not Reportable 07/09/21 04:45 Platelet Estimate Consistent w auto 07/09/21 04:45 Clumped Platelets Not Reportable 07/09/21 04:45 Plt Clumps, EDTA Not Reportable 07/09/21 04:45 Large Platelets Not Reportable 07/09/21 04:45 Giant Platelets Rare 07/09/21 04:45 Platelet Satelliting Not Reportable 07/09/21 04:45 Plt Morphology Comment Not Reportable 07/09/21 04:45 RBC Morphology Not Reportable 07/09/21 04:45 Dimorphic RBCs Not Reportable 07/09/21 04:45 Polychromasia Not Reportable 07/09/21 04:45 Hypochromasia Few 07/09/21 04:45 Poikilocytosis Not Reportable 07/09/21 04:45 Anisocytosis Not Reportable 07/09/21 04:45 Microcytosis Not Reportable 07/09/21 04:45 Macrocytosis Not Reportable 07/09/21 04:45 Spherocytes Not Reportable 07/09/21 04:45 Pappenheimer Bodies Not Reportable 07/09/21 04:45 Sickle Cells Not Reportable 07/09/21 04:45 Target Cells Not Reportable 07/09/21 04:45 Tear Drop Cells Not Reportable 07/09/21 04:45 Ovalocytes Not Reportable 07/09/21 04:45 Stomatocytes 1+ 07/09/21 04:45 Helmet Cells Not Reportable 07/09/21 04:45 Ahuja-Tome Bodies Not Reportable 07/09/21 04:45 [place] Rings Not Reportable 07/09/21 04:45 Bypro Cells Not Reportable 07/09/21 04:45 Bite Cells Not Reportable 07/09/21 04:45 Crenated Cell Not Reportable 07/09/21 04:45 Elliptocytes Not Reportable 07/09/21 04:45 Acanthocytes (Spur) Not Reportable 07/09/21 04:45 Rouleaux Not Reportable 07/09/21 04:45 Hemoglobin C Crystals Not Reportable 07/09/21 04:45 Schistocytes Not Reportable 07/09/21 04:45 Malaria parasites Not Reportable 07/09/21 04:45 Justin Bodies Not Reportable 07/09/21 04:45 Hem Pathologist Commnt No 07/09/21 04:45 D-Dimer 638.35 ng/mlDDU (0-234) H 07/09/21 04:45 ABG pH 7.417 (7.320-7.450) 07/23/21 18:11 POC ABG pCO2 78.3 mmHg (32.0-48.0) H 07/23/21 18:11 ABG pCO2 85.7 mm Hg 07/22/21 12:05 POC ABG pO2 80.7 mmHg (83-108) L 07/23/21 18:11 ABG pO2 66.1 mm Hg (80.0-90.0) L 07/22/21 12:05 POC ABG HCO3 49.3 07/23/21 18:11 ABG HCO3 45.0 mmol/L (20.0-26.0) H 07/22/21 12:05 ABG O2 Saturation 96.7 (0-100) 07/23/21 18:11 ABG O2 Content 16.8 (0.0-44) 07/22/21 12:05 POC ABG Base Excess 20.5 07/23/21 18:11 ABG Base Excess 15.2 mmol/L (-2.0-3.0) H 07/22/21 12:05 ABG Hemoglobin 12.6 (12.0-17.5) 07/23/21 18:11 ABG Oxyhemoglobin 95.7 (94-98) 07/23/21 18:11 ABG Carboxyhemoglobin 1.9 % (0.0-5.0) 07/22/21 12:05 ABG Methemoglobin 0.3 (0.0-1.5) 07/23/21 18:11 ABG Sodium 134.9 mmol/L (136.0-145.0) L 07/23/21 18:11 ABG Potassium 3.9 mmol/L (3.40-4.50) 07/23/21 18:11 ABG Chloride 89.0 mmol/L (98-107) L 07/23/21 18:11 ABG Glucose 200 mg/dL (65-95) H 07/23/21 18:11 Oxyhemoglobin 91.9 % (95.0-99.0) L 07/22/21 12:05 Carboxyhemoglobin 0.7 (0.5-1.5) 07/23/21 18:11 FiO2 100 % 07/22/21 12:05 FiO2 % 100.0 07/23/21 18:11 Sodium 140 mmol/L (137-145) 08/08/21 04:51 Potassium 4.1 mmol/L (3.6-5.0) 08/08/21 04:51 Chloride 92.9 mmol/L (98-107) L 08/08/21 04:51 Carbon Dioxide 39 mmol/L (22-30) H 08/08/21 04:51 Anion Gap 12 mmol/L 08/08/21 04:51 BUN 9 mg/dL (7-17) 08/08/21 04:51 Creatinine < 0.2 mg/dL (0.6-1.2) L 08/08/21 04:51 Estimated GFR > 60 ml/min 08/08/21 04:51 BUN/Creatinine Ratio 45 % 08/08/21 04:51 Glucose 105 mg/dL (65-100) H 08/08/21 04:51 POC Glucose 116 mg/dL (70-105) H 08/13/21 16:21 Hemoglobin A1c 8.5 % (4-6) H 04/18/21 07:36 Calcium 9.4 mg/dL (8.4-10.2) 08/08/21 04:51 Phosphorus 3.70 mg/dL (2.5-4.5) 07/23/21 04:35 Magnesium 2.10 mg/dL (1.7-2.3) 07/23/21 04:35 Ferritin 155.9 ng/mL (10.0-200.0) 07/09/21 04:45 Total Bilirubin < 0.20 mg/dL (0.1-1.2) 07/26/21 09:56 AST 23 units/L (5-40) 07/26/21 09:56 ALT 25 units/L (7-56) 07/26/21 09:56 Alkaline Phosphatase 69 units/L (35-129) 07/26/21 09:56 Lactate Dehydrogenase 475 units/L (91-180) H 06/05/21 05:26 C-Reactive Protein 4.30 mg/dL (0.00-1.30) H 07/09/21 04:45 NT-Pro-B Natriuret Pep 59.45 pg/mL (0-450) 07/07/21 13:40 Total Protein 8.1 g/dL (6.3-8.2) 07/26/21 09:56 Albumin 3.2 g/dL (3.9-5) L 07/26/21 09:56 Albumin/Globulin Ratio 0.7 % 07/26/21 09:56 Triglycerides < 9 mg/dL (2-149) 05/03/21 04:30 Procalcitonin < 0.05 ng/mL (<0.15) 05/23/21 09:50 Arterial Blood Glucose 200 mg/dL (65-95) H 07/23/21 18:11 Arterial Blood Ionized Calcium 4.6 mg/dL (4.6-5.3) 07/23/21 18:11 Coronavirus (PCR) Negative (Negative) 07/25/21 Unknown Amos/IV: Voiding Method External Female Catheter Active Medications - Current Medications Current Medications: Generic Name Dose Route Start Last Admin Trade Name Freq PRN Reason Stop Dose Admin Acetaminophen 650 mg 07/02/21 17:48 08/12/21 21:46 Acetaminophen 325 Mg Tab PO 650 mg Q4H PRN Administration Pain, Mild (1-3) Albuterol 2.5 mg 04/16/21 13:39 04/21/21 20:39 Albuterol 2.5 Mg/3 Ml Nebu IH 2.5 mg Q4HRT PRN Administration Shortness Of Breath Alprazolam 1 mg 08/12/21 11:00 08/13/21 09:17 Alprazolam 1 Mg Tab PO 1 mg BID TUTU Administration Calcium Carbonate/Glycine 500 mg 07/24/21 10:43 Calcium Carbonate 500 Mg Tab Chew PO BID PRN reflux Cholecalciferol 1,000 unit 04/17/21 10:00 08/13/21 09:17 Cholecalciferol (Vit D3) 1000 Unit (25 Mcg) Tab PO 1,000 unit QDAY TUTU Administration Enoxaparin Sodium 40 mg 05/19/21 22:00 08/12/21 21:46 Enoxaparin 40 Mg/0.4 Ml Inj SUB-Q 40 mg QDAY@2200 TUTU Administration Protocol Insulin Glargine 5 units 07/25/21 10:00 08/13/21 10:04 Insulin Glargine 100 Units/Ml SUB-Q 5 units DAILY TUTU Administration Insulin Human Lispro 0 unit 05/18/21 12:00 08/13/21 17:25 Insulin Lispro 100 Unit/Ml SUB-Q 3 unit ACHS TUTU Administration Protocol Ondansetron HCl 4 mg 04/16/21 14:00 05/30/21 10:07 Ondansetron 4 Mg/2 Ml Inj IV 4 mg Q8H PRN Administration Nausea And Vomiting Polyethylene Glycol 17 gm 07/16/21 20:00 08/11/21 11:18 Polyethylene Glycol 3350 17 Gm Powder PO 17 gm QDAY PRN Administration Constipation Sodium Chloride 10 ml 04/16/21 13:39 08/09/21 10:00 Sodium Chloride 0.9% 10 Ml Flush Syringe IV 10 ml PRN PRN Administration LINE FLUSH Nutrition/Malnutrition Assess - Dietary Evaluation Nutrition/Malnutrition Findings: Nutrition Notes Start: 04/23/21 07:41 Freq: Status: Active Protocol: Document 08/09/21 17:26 SAQIB (Rec: 08/09/21 17:30 SAQIB [id number]) Nutrition Notes Initial or Follow up Brief Note Subjective/Other Information RD brief note to set next F/U on 09/12 Nutrition Intervention Follow-Up By: 09/12/21 Additional Comments Continue monitoring food tolerance, %PO intake of meals , Hydration, and BM.
[2021-08-13] MEDS: ACETAMINOPHEN 325 MG TAB PO PRN (22:45)
[2021-08-13] MEDS: ENOXAPARIN 40 MG/0.4 ML INJ SUB-Q SCH (22:46)
[2021-08-14] MEDS: INSULIN LISPRO 100 UNIT/ML SUB-Q SCH ×4 (08:00→22:26)
[2021-08-14] MEDS: CHOLECALCIFEROL (VIT D3) 1000 UNIT (25 mcg) TAB PO SCH (11:06)
[2021-08-14] MEDS: ALPRAZolam 1 MG TAB PO SCH ×2 (11:06→22:24)
[2021-08-14] MEDS: INSULIN GLARGINE 100 UNITS/ML SUB-Q SCH (11:06)
[2021-08-14] MEDS: ACETAMINOPHEN 325 MG TAB PO PRN ×2 (11:08→22:23)
--- NOTE | 2021-08-14 11:32 | Progress Note ---
Assessment and Plan Assessment and plan: #Acute hypoxic/hypercapneic respiratory failure #Severe ARDS -stable -refusing BiPAP, currently on HFNC -plan to maintain SpO2 >88% -s/p prednisone taper -encouraged patient to prone herself when she is awake -repeat CXR ordered -Pulmonology following, assistance appreciated #Metabolic alkalosis -stable #Heart failure with preserved ejection fraction -TTE: LVEF 55-60% with diastolic dysfunction -will continue to monitor for signs of fluid overload #COVID-19 infection -Continue Covid vitamins #Type 2 diabetes -continue Lantus 5 units daily and sliding scale insulin #Anxiety -Stable -continue xanax #DVT prophylaxis -Lovenox 40 daily #Deconditioning -Will benefit from SNF after prolonged hospital stay Resolved issues #Sepsis secondary to COVID-19 #Iatrogenic diarrhea #Hypomagnesemia #Hyponatremia #Protein calorie malnutrition #Dysuria #Hypokalemia #Possible UTI #Advanced care planning -Disease education conducted, care plan discussed, diagnoses discussed, prognosis discussed, and patient acknowledges understanding with care plan -Time: +30 minutes Disposition Plan: Continue medical management Total Time Spent with Patient (Minutes): 30 minutes. History Interval history: No acute events overnight. Hospitalist Physical - Constitutional Vitals: Temp Pulse Resp BP Pulse Ox 98.2 F 97 H 34 H 129/74 96 08/14/21 07:30 08/14/21 06:00 08/14/21 06:00 08/14/21 06:00 08/14/21 07:38 General appearance: Present: no acute distress, well-nourished, other (Looks tired) - EENT Eyes: Present: PERRL, EOM intact ENT: hearing intact, clear oral mucosa, dentition normal - Neck Neck: Present: supple, normal ROM - Respiratory Respiratory effort: normal Respiratory: bilateral: diminished (Currently on high flow nasal cannula) - Cardiovascular Rhythm: regular Heart Sounds: Present: S1 & S2 - Extremities Extremities: no ischemia, pulses intact, pulses symmetrical, No edema, normal temperature, normal color Peripheral Pulses: within normal limits - Abdominal General gastrointestinal: soft, non-tender, non-distended, normal bowel sounds - Integumentary Integumentary: Present: clear, warm, dry - Psychiatric Psychiatric: appropriate mood/affect, intact judgment & insight, memory intact - Neurologic Neurologic: CNII-XII intact, moves all extremities - Allied Health Allied health notes reviewed: nursing Results - Labs CBC & Chem 7: 07/23/21 04:35 08/08/21 04:51 Labs: Laboratory Last Values WBC 10.8 K/mm3 (4.5-11.0) 07/23/21 04:35 RBC 3.84 M/mm3 (3.65-5.03) 07/23/21 04:35 Hgb 12.1 gm/dl (10.1-14.3) 07/23/21 04:35 Hct 37.6 % (30.3-42.9) 07/23/21 04:35 MCV 98 fl (79-97) H 07/23/21 04:35 MCH 32 pg (28-32) 07/23/21 04:35 MCHC 32 % (30-34) 07/23/21 04:35 RDW 16.2 % (13.2-15.2) H 07/23/21 04:35 Plt Count 367 K/mm3 (140-440) 07/23/21 04:35 Lymph % (Auto) 7.9 % (13.4-35.0) L 07/23/21 04:35 [place] % (Auto) 5.6 % (0.0-7.3) 07/23/21 04:35 Eos % (Auto) 0.8 % (0.0-4.3) 07/23/21 04:35 Baso % (Auto) 0.4 % (0.0-1.8) 07/23/21 04:35 Lymph # (Auto) 0.9 K/mm3 (1.2-5.4) L 07/23/21 04:35 [place] # (Auto) 0.6 K/mm3 (0.0-0.8) 07/23/21 04:35 Eos # (Auto) 0.1 K/mm3 (0.0-0.4) 07/23/21 04:35 Baso # (Auto) 0.0 K/mm3 (0.0-0.1) 07/23/21 04:35 Add Manual Diff Complete 07/09/21 04:45 Total Counted 100 07/09/21 04:45 Seg Neutrophils % 85.3 % (40.0-70.0) H 07/23/21 04:35 Seg Neuts % (Manual) 82.0 % (40.0-70.0) H 07/09/21 04:45 Band Neutrophils % 1.0 % 05/12/21 04:05 Lymphocytes % (Manual) 13.0 % (13.4-35.0) L 07/09/21 04:45 Monocytes % (Manual) 3.0 % (0.0-7.3) 07/09/21 04:45 Eosinophils % (Manual) 2.0 % (0.0-4.3) 07/09/21 04:45 Nucleated RBC % Not Reportable 07/09/21 04:45 Seg Neutrophils # 9.2 K/mm3 (1.8-7.7) H 07/23/21 04:35 Seg Neutrophils # Man 7.8 K/mm3 (1.8-7.7) H 07/09/21 04:45 Band Neutrophils # 0.0 K/mm3 07/09/21 04:45 Lymphocytes # (Manual) 1.2 K/mm3 (1.2-5.4) 07/09/21 04:45 Abs React Lymphs (Man) 0.0 K/mm3 07/09/21 04:45 Monocytes # (Manual) 0.3 K/mm3 (0.0-0.8) 07/09/21 04:45 Eosinophils # (Manual) 0.2 K/mm3 (0.0-0.4) 07/09/21 04:45 Basophils # (Manual) 0.0 K/mm3 (0.0-0.1) 07/09/21 04:45 Metamyelocytes # 0.0 K/mm3 07/09/21 04:45 Myelocytes # 0.0 K/mm3 07/09/21 04:45 Promyelocytes # 0.0 K/mm3 07/09/21 04:45 Blast Cells # 0.0 K/mm3 07/09/21 04:45 WBC Morphology Not Reportable 07/09/21 04:45 Hypersegmented Neuts Not Reportable 07/09/21 04:45 Hyposegmented Neuts Not Reportable 07/09/21 04:45 Hypogranular Neuts Not Reportable 07/09/21 04:45 Smudge Cells Not Reportable 07/09/21 04:45 Toxic Granulation Not Reportable 07/09/21 04:45 Toxic Vacuolation Not Reportable 07/09/21 04:45 Dohle Bodies Not Reportable 07/09/21 04:45 Pelger-Huet Anomaly Not Reportable 07/09/21 04:45 Janelle Rods Not Reportable 07/09/21 04:45 Platelet Estimate Consistent w auto 07/09/21 04:45 Clumped Platelets Not Reportable 07/09/21 04:45 Plt Clumps, EDTA Not Reportable 07/09/21 04:45 Large Platelets Not Reportable 07/09/21 04:45 Giant Platelets Rare 07/09/21 04:45 Platelet Satelliting Not Reportable 07/09/21 04:45 Plt Morphology Comment Not Reportable 07/09/21 04:45 RBC Morphology Not Reportable 07/09/21 04:45 Dimorphic RBCs Not Reportable 07/09/21 04:45 Polychromasia Not Reportable 07/09/21 04:45 Hypochromasia Few 07/09/21 04:45 Poikilocytosis Not Reportable 07/09/21 04:45 Anisocytosis Not Reportable 07/09/21 04:45 Microcytosis Not Reportable 07/09/21 04:45 Macrocytosis Not Reportable 07/09/21 04:45 Spherocytes Not Reportable 07/09/21 04:45 Pappenheimer Bodies Not Reportable 07/09/21 04:45 Sickle Cells Not Reportable 07/09/21 04:45 Target Cells Not Reportable 07/09/21 04:45 Tear Drop Cells Not Reportable 07/09/21 04:45 Ovalocytes Not Reportable 07/09/21 04:45 Stomatocytes 1+ 07/09/21 04:45 Helmet Cells Not Reportable 07/09/21 04:45 [place] Bodies Not Reportable 07/09/21 04:45 [place] Rings Not Reportable 07/09/21 04:45 [place] Cells Not Reportable 07/09/21 04:45 Bite Cells Not Reportable 07/09/21 04:45 Crenated Cell Not Reportable 07/09/21 04:45 Elliptocytes Not Reportable 07/09/21 04:45 Acanthocytes (Spur) Not Reportable 07/09/21 04:45 Rouleaux Not Reportable 07/09/21 04:45 Hemoglobin C Crystals Not Reportable 07/09/21 04:45 Schistocytes Not Reportable 07/09/21 04:45 Malaria parasites Not Reportable 07/09/21 04:45 Justin Bodies Not Reportable 07/09/21 04:45 Hem Pathologist Commnt No 07/09/21 04:45 D-Dimer 638.35 ng/mlDDU (0-234) H 07/09/21 04:45 ABG pH 7.417 (7.320-7.450) 07/23/21 18:11 POC ABG pCO2 78.3 mmHg (32.0-48.0) H 07/23/21 18:11 ABG pCO2 85.7 mm Hg 07/22/21 12:05 POC ABG pO2 80.7 mmHg (83-108) L 07/23/21 18:11 ABG pO2 66.1 mm Hg (80.0-90.0) L 07/22/21 12:05 POC ABG HCO3 49.3 07/23/21 18:11 ABG HCO3 45.0 mmol/L (20.0-26.0) H 07/22/21 12:05 ABG O2 Saturation 96.7 (0-100) 07/23/21 18:11 ABG O2 Content 16.8 (0.0-44) 07/22/21 12:05 POC ABG Base Excess 20.5 07/23/21 18:11 ABG Base Excess 15.2 mmol/L (-2.0-3.0) H 07/22/21 12:05 ABG Hemoglobin 12.6 (12.0-17.5) 07/23/21 18:11 ABG Oxyhemoglobin 95.7 (94-98) 07/23/21 18:11 ABG Carboxyhemoglobin 1.9 % (0.0-5.0) 07/22/21 12:05 ABG Methemoglobin 0.3 (0.0-1.5) 07/23/21 18:11 ABG Sodium 134.9 mmol/L (136.0-145.0) L 07/23/21 18:11 ABG Potassium 3.9 mmol/L (3.40-4.50) 07/23/21 18:11 ABG Chloride 89.0 mmol/L (98-107) L 07/23/21 18:11 ABG Glucose 200 mg/dL (65-95) H 07/23/21 18:11 Oxyhemoglobin 91.9 % (95.0-99.0) L 07/22/21 12:05 Carboxyhemoglobin 0.7 (0.5-1.5) 07/23/21 18:11 FiO2 100 % 07/22/21 12:05 FiO2 % 100.0 07/23/21 18:11 Sodium 140 mmol/L (137-145) 08/08/21 04:51 Potassium 4.1 mmol/L (3.6-5.0) 08/08/21 04:51 Chloride 92.9 mmol/L (98-107) L 08/08/21 04:51 Carbon Dioxide 39 mmol/L (22-30) H 08/08/21 04:51 Anion Gap 12 mmol/L 08/08/21 04:51 BUN 9 mg/dL (7-17) 08/08/21 04:51 Creatinine < 0.2 mg/dL (0.6-1.2) L 08/08/21 04:51 Estimated GFR > 60 ml/min 08/08/21 04:51 BUN/Creatinine Ratio 45 % 08/08/21 04:51 Glucose 105 mg/dL (65-100) H 08/08/21 04:51 POC Glucose 176 mg/dL (70-105) H 08/14/21 11:13 Hemoglobin A1c 8.5 % (4-6) H 04/18/21 07:36 Calcium 9.4 mg/dL (8.4-10.2) 08/08/21 04:51 Phosphorus 3.70 mg/dL (2.5-4.5) 07/23/21 04:35 Magnesium 2.10 mg/dL (1.7-2.3) 07/23/21 04:35 Ferritin 155.9 ng/mL (10.0-200.0) 07/09/21 04:45 Total Bilirubin < 0.20 mg/dL (0.1-1.2) 07/26/21 09:56 AST 23 units/L (5-40) 07/26/21 09:56 ALT 25 units/L (7-56) 07/26/21 09:56 Alkaline Phosphatase 69 units/L (35-129) 07/26/21 09:56 Lactate Dehydrogenase 475 units/L (91-180) H 06/05/21 05:26 C-Reactive Protein 4.30 mg/dL (0.00-1.30) H 07/09/21 04:45 NT-Pro-B Natriuret Pep 59.45 pg/mL (0-450) 07/07/21 13:40 Total Protein 8.1 g/dL (6.3-8.2) 07/26/21 09:56 Albumin 3.2 g/dL (3.9-5) L 07/26/21 09:56 Albumin/Globulin Ratio 0.7 % 07/26/21 09:56 Triglycerides < 9 mg/dL (2-149) 05/03/21 04:30 Procalcitonin < 0.05 ng/mL (<0.15) 05/23/21 09:50 Arterial Blood Glucose 200 mg/dL (65-95) H 07/23/21 18:11 Arterial Blood Ionized Calcium 4.6 mg/dL (4.6-5.3) 07/23/21 18:11 Coronavirus (PCR) Negative (Negative) 07/25/21 Unknown Amos/IV: Voiding Method External Female Catheter Active Medications - Current Medications Current Medications: Generic Name Dose Route Start Last Admin Trade Name Freq PRN Reason Stop Dose Admin Acetaminophen 650 mg 07/02/21 17:48 08/14/21 11:08 Acetaminophen 325 Mg Tab PO 650 mg Q4H PRN Administration Pain, Mild (1-3) Albuterol 2.5 mg 04/16/21 13:39 04/21/21 20:39 Albuterol 2.5 Mg/3 Ml Nebu IH 2.5 mg Q4HRT PRN Administration Shortness Of Breath Alprazolam 1 mg 08/12/21 11:00 08/14/21 11:06 Alprazolam 1 Mg Tab PO 1 mg BID TUTU Administration Calcium Carbonate/Glycine 500 mg 07/24/21 10:43 Calcium Carbonate 500 Mg Tab Chew PO BID PRN reflux Cholecalciferol 1,000 unit 04/17/21 10:00 08/14/21 11:06 Cholecalciferol (Vit D3) 1000 Unit (25 Mcg) Tab PO 1,000 unit QDAY TUTU Administration Enoxaparin Sodium 40 mg 05/19/21 22:00 08/13/21 22:46 Enoxaparin 40 Mg/0.4 Ml Inj SUB-Q 40 mg QDAY@2200 TUTU Administration Protocol Insulin Glargine 5 units 07/25/21 10:00 08/14/21 11:06 Insulin Glargine 100 Units/Ml SUB-Q 5 units DAILY TUTU Administration Insulin Human Lispro 0 unit 05/18/21 12:00 08/14/21 08:00 Insulin Lispro 100 Unit/Ml SUB-Q Not Given ACHS [facility] Protocol Ondansetron HCl 4 mg 04/16/21 14:00 05/30/21 10:07 Ondansetron 4 Mg/2 Ml Inj IV 4 mg Q8H PRN Administration Nausea And Vomiting Polyethylene Glycol 17 gm 07/16/21 20:00 08/11/21 11:18 Polyethylene Glycol 3350 17 Gm Powder PO 17 gm QDAY PRN Administration Constipation Sodium Chloride 10 ml 04/16/21 13:39 08/09/21 10:00 Sodium Chloride 0.9% 10 Ml Flush Syringe IV 10 ml PRN PRN Administration LINE FLUSH Nutrition/Malnutrition Assess - Dietary Evaluation Nutrition/Malnutrition Findings: Nutrition Notes Start: 04/23/21 07:41 Freq: Status: Active Protocol: Document 08/09/21 17:26 SAQIB (Rec: 08/09/21 17:30 SAQIB [id number]) Nutrition Notes Initial or Follow up Brief Note Subjective/Other Information RD brief note to set next F/U on 09/12 Nutrition Intervention Follow-Up By: 09/12/21 Additional Comments Continue monitoring food tolerance, %PO intake of meals , Hydration, and BM.
--- NOTE | 2021-08-14 13:57 | Progress Note ---
Assessment and Plan 50 y/o female with acute respiratory failure secondary to COVID19 pneumonia. 08/14/21: wean HFNC as tolerated. 08/12/21: Continue to attempt to wean HFNC. No other therapies available for this at present. Will check CXR today. 08/07/21: Constant struggle with Ms. Ren, on and off bipap. Good and bad days. She has had all therapy. Anxiety does play a huge roll but she truly desats. Continue NIV at night and PRN during the day. Wean HFNC as tolerated for sats >88%. May consider another trial of steroids when I come back. My partner is rounding the next 4 days. 08/05/21: I dropped FiO2 to 65%. Continue to wean for sats >88%. 08/03/21: COntinue supportive measures. Thank you for documenting refusal of NIV at night. Will attempt to speak with patient about anxiety and why she doesn't want to wear the NIV via the language line. 08/02/21: Continue supportive care. pLaced new order for NIV at night. Please document if patient refuses 07/31/21: COntinue to wean FiO2 as tolerated. NIV at night. 07/30/21: Bipap QHS. Please document if patient is refusing this at night. Per nurse she has refused but RT documentation reflects that it was PRN and not needed. Prognosis is still guarded. 07/29/21: Continue to attempt to wean FiO2. Given fluctuations in oxygen requirements, ok with keeping in IMCU. consider using bipap therapy at night if patient will allow. Prognosis still remains guarded. Patient has been here 104 days. 07/21/21: Wean FiO2 as tolerated. Patient has never proned the entire 96 days she has been here. Will continue bipap at night. Hold on lasix again today. Prognosis remains guarded. Has finished steroids and all other experimental COVID drugs with minimal to no improvement. 07/20/21: Give patient a break off of bipap and attempt high flow nasal cannula today. Will feed. Suggest keeping bipap therapy at night. Monitor fluid balance and BP. May need more lasix. 07/19/21: This was not related to stopping steroids as hemodynamically she is stable. Her sats is very good on 90%, I dropped to 85 and will continue to wean. She speaks no czech and is very anxious. This adds to her work of breathing. COntinue to wean FiO2 as tolerated. Will give periodic breaks on bipap therapy. Guarded prognosis. 07/17/21: will stop steroids today. Hold on lasix given marginal blood pressure. Guarded prognosis. 07/15/21: Lasix today. Positive fluid balance all weekend based on I/O. Prone. Wean for sats >88% 07/12/21: Gave lasix 40mg IV again this am. Per charting yesterday was the first net negative day. Suggest PRN diuresis over the weekend as well. My partner is rounding but will likely see as needed. Continue to wean for sats >88% 07/11/21: Lasix 40mg IV this am. Attempt to prone if able. Attempt to achieve daily net negative state. Wean for sats >88%. Guarded prognosis. Will change prednisone to 5mg daily starting tomorrow. 07/09/21: Echo shows diastolic dysfunction. Will given an additional 40 of IV lasix today. Monitor daily and wean aggressively for sats >88% 07/08/21: Worsening CXR, Gave lasix yesterday and will give again today. Suggest checking echo, ekg. Prognosis is poor now with this change. We have seen COVID cause CAD with [place]. 07/05/21: Will monitor over the weekend. Worst case scenario, may need to go back up to Prednisone 20 at least. Prone if able. Unsure why all of sudden oxygen requirement increasing. Will repeat CXR. 07/03/21: Down to 10 of prednisone. Will keep through the weekend and then drop to 5 on Thursday. PT/OT assessment if not done. Suggest maybe weaning flow now given FiO2 down to 50%. Prognosis is still guarded. 07/01/21: Will drop steroids to 10mg daily starting tomorrow. Wean for sats >88%. Prone. PT/OT should be seeing now that oxygen requirement is down more. 06/28/21: Continue to wean as tolerated. Will drop steroids down even further next week. Will see PRN over the weekend. 06/26/21: Will drop steroids down to 20 starting tomorrow. Prone. Continue to wean as tolerated. 06/24/21: Continue Pred, will drop to 20 daily tomorrow. Prone if able. Hopeful they can wean FiO2 more. May need to consider increasing flow for a while. 06/21/21: Continue pred at 40, will decrease likely Thursday/Thursday to 20 daily. Prone if able. Continue to wean as tolerated. Prognosis still remains guarded. 06/20/21: Will drop steroids down to 40 today. Proning. Continue to wean FiO2. 06/18/21: Wean Fio2 for sats >88%. Please encourage proning. Drop steroids down to 40 on . 06/14/21: Continue oral steroid therapy. Will do further weaning next week. Wean for sats >88% and prone as tolerated. Will see as needed over the weekend. 06/13/21: Will change to prednisone 60 daily starting tomorrow. Prone if able and wean for sats >88% 06/11/21: no new recs, will change to oral steroids tomorrow, continue to prone if able and wean for sats >88% 06/10/21: Will change to oral steroids on Thursday to begin prolonged taper 06/06/21: Continue to wean as tolerated, will drop steroids on tomorrow. 06/04/21: Clinically no change. Will drop steroids down the end of this week. 05/31/21: Clinically no change. Not eligible for LTACH. Encourage Proning. Will drop steroids down to 40 q8 05/29/21: No acute changes clinically. Still on HFNC but not really able to wean. Continue to encourage proning. Will drop steroids further on Thursday. 05/27/21: No improvement over the weekend but also no worsening. No other strategies to offer. Please continue to encourage patient to prone. I dropped steroids on yesterday. Will wean more later in the week. 05/24/21: No new recs again for today. Will see as needed over the weekend but follow chart peripherally for changes. 05/22/21: No new recs for today. Prognosis remains guarded. 05/21/21: Wean as tolerated. Prone if able. Guarded prognosis 05/20/21: COntinue current level of care. 05/17/21: Prone if possible. Wean FiO2 for sats >88%. Continue scheduled ativan. Prognosis is very very guarded. Unfunded so not a candidate for LTACH 05/16/21: Prone if willing. Wean FIO2 if patient will allow. Anxiety control. Prognosis still remains very guarded. 05/15/21: Not sure if MAR is accurate but may have only gotten one dose of scheduled anixolytic therapy. Continue proning as tolerated, and wean FiO2 and flow for sats >88%. Prognosi remains very very guarded to poor. 05/14/21: Will discontinue the buspar and make the ativan scheduled but will do q6 as oppose to q4 and attempt to leave parameters for nursing when not to give. If anxiety could be controlled, feel that patient could be weaned further. She has no funding so she is not a candidate for LTACH. Prone if possible. Guarded prognosis. This is her day. 05/13/21: Ordered buspar 10 BID to start with to help with anxiety. Please continue to wean FiO2 as tolerated. Will remind nurse that there is PRN ativan available. Continue higher doses of steroids. Prone if able. 05/12/21: Patient may need something longer acting for anxiety. Per chart has not gotten any ativan in days. Would be ok with either buspar or low dose klonopin bid. COntinue higher doses of steroids as patient seems to be responding. Prone if possible. 05/11/21: Continue high doses of steroids and continue to wean for sats >88%. Please encourage proning. 05/10/21: Will continue this dose of steroid at least through the weekend and assess for improvement. will speak with RT about aggressive weaning. Full dose anticoagulation continues. Very very guarded to poor prognosis. 05/09/21: Going to consider increasing steroids to 125q8, maybe as early as tomorrow. continue full dose anticoagulation. 05/08/21: Continue anticoagulation and steroids. Prone if possible. Anxiety control. No objection to CTA if this can happen. Very very guarded prognosis. 05/07/21: Spoke with IMS, not opposed to full dose anticoagulation. If patient goes back on NRB HFNC combo may need to consider restarting PPN again. Encourage proning. Guarded prognosis. 05/06/21: Continue to wean FiO2 and flow for sats >88%. Tolerating diet now so will stop PPN. Continue anxiety control. Continue IV steroids. Would not object to transfer to [facility] if bed available. Not sure why she was titrated back up to 100% from 85 as all sats documented in the RT's notes were acceptable. Same for under vital signs as well. 05/03/21: Set back last night from yesterday. Continue bipap therapy for now and attempt HFNC maybe later this afternoon. Continue to use PRN ativan but may need to schedule as she likely took off mask from anxiety. Continue IV steroids. Hold on transfer to COVID Floor. 05/02/21: Continue to wean FiO2 as tolerated for sats >88%. Will continue bipap at night. Patient has no funding so not a candidate for LTACH. Given that she has been stable and not requiring the combo of HFNC and NRB, will consider moving to COVID floor. 05/01/21: Continue to wean FiO2 for sats >88%. A sat of 90 is more than acceptable and oxygen should not be increased for this unless patient desats and remains at a sat lower than 88. Bipap at night to give some form of relief and HFNC during the day. Currently on just this alone which is improvement. Ok with daily diuresis but must monitor renal function and BP closely. She was over diuresed last week and we ended up giving fluid back. Prognosis remains guarded. 04/30/21: Will start CLinimix today for nutritional support, without elect rolytes. Check labs in am. Prone if able. Continue precedex for anxiety. Very very guarded prognosis. Attempting our best to not intubate. 04/29/21: Continue precedex. Continue IV solumedrol. Prone if able. Guarded prognosis. 04/28/21: Continue Precedex. Picc team attempting to place line now. Stable on Bipap. Ordered steroids IV solumedrol to start today. Prognosis remains guarded, still at very high risk for intubation. 04/27/21: Hypotension improving/improved. Hold on any further lasix dosing. Continue precedex to help with anxeity. later today please attempt HFNC with NRB if needed. Attempt to feed if possible. Steroids end today, please order solumedrol 40q8 to start tomorrow (04/28/21). guarded prognosis. 04/26/21: Hypotension today, most likely from precedex use and diuresis that I did the last several days. Will bolus again today. Consider midodrine if BP d oes not respond. 04/25/21: Lasix again today. Keep PRN ativan for now. Hold on precedex for now. Guarded prognosis. Labs ordered for tomorrow. 04/24/21: Lasix today. Will also start patient on low dose PRN ativan. If this does not help will then try precedex. Guarded prognosis. 04/23/21: Prone as tolerated. No lasix today. Continue decadron. Guarded prognosis. High risk for intubation and high mortality with intubation. 04/19/21: Prone as tolerated during the day and sleep prone at night. Continue IV remdesivir and steroids. Did get actemra. Guarded prognosis. 1. Daily net negative state 2. Prone if possible 3. IV remdesivir. 4. Should be a candidate for Actemra 5. IV steroids 6. Guarded Prognosis Subjective Date of service: 08/14/21 Principal diagnosis: Covid-19 Interval history: No acute events. Objective Vital Signs - 12hr 08/14/21 08/14/21 08/14/21 02:00 02:14 03:00 Temperature Pulse Rate 90 95 H Respiratory 31 H 48 H Rate Blood Pressure 115/70 128/68 O2 Sat by Pulse 95 97 89 Oximetry 08/14/21 08/14/21 08/14/21 03:23 03:39 03:45 Temperature 96.4 F L Pulse Rate 92 H Respiratory 53 H Rate Blood Pressure O2 Sat by Pulse Oximetry 08/14/21 08/14/21 08/14/21 04:00 05:00 06:00 Temperature Pulse Rate 89 93 H 97 H Respiratory 24 33 H 34 H Rate Blood Pressure 123/75 126/75 129/74 O2 Sat by Pulse 99 95 97 Oximetry 08/14/21 08/14/21 08/14/21 07:00 07:30 07:38 Temperature 98.2 F Pulse Rate 95 H Respiratory 47 H Rate Blood Pressure 127/76 O2 Sat by Pulse 93 96 Oximetry 08/14/21 08/14/21 08/14/21 08:00 09:00 10:00 Temperature Pulse Rate 99 H 99 H 101 H Respiratory 38 H 42 H 45 H Rate Blood Pressure 137/77 126/84 121/76 O2 Sat by Pulse 90 95 Oximetry 08/14/21 08/14/21 11:00 11:34 Temperature 97.8 F Pulse Rate 101 H Respiratory 48 H Rate Blood Pressure 121/76 O2 Sat by Pulse Oximetry Constitutional: alert, other (on hiflo o2) Eyes: non-icteric ENT: oropharynx moist Neck: supple Effort: normal Ascultation: Bilateral: diminished breath sounds Cardiovascular: regular rate and rhythm Gastrointestinal: normoactive bowel sounds, soft, non-tender, non-distended Integumentary: normal Extremities: no cyanosis, no edema, pink and warm Neurologic: non-focal exam, pupils equal and round Psychiatric: mood appropriate, affect normal CBC and BMP: 07/23/21 04:35 08/08/21 04:51 ABG, PT/INR, D-dimer: ABG ABG pH 7.417 (7.320-7.450) 07/23/21 18:11 POC ABG pCO2 78.3 mmHg (32.0-48.0) H 07/23/21 18:11 ABG pCO2 85.7 mm Hg 07/22/21 12:05 POC ABG pO2 80.7 mmHg (83-108) L 07/23/21 18:11 ABG pO2 66.1 mm Hg (80.0-90.0) L 07/22/21 12:05 POC ABG HCO3 49.3 07/23/21 18:11 ABG O2 Saturation 96.7 (0-100) 07/23/21 18:11 PT/INR, D-dimer D-Dimer 638.35 ng/mlDDU (0-234) H 07/09/21 04:45 Abnormal lab findings: Abnormal Labs 04/16/21 04/16/21 04/16/21 11:42 11:42 11:42 WBC MCV MCH MCHC RDW 16.1 H Lymph % (Auto) 7.8 L [place] % (Auto) Eos % (Auto) Lymph # (Auto) 0.8 L [place] # (Auto) Eos # (Auto) Baso # (Auto) Seg Neutrophils % 87.7 H Seg Neuts % (Manual) Lymphocytes % (Manual) Seg Neutrophils # 8.5 H Seg Neutrophils # Man Lymphocytes # (Manual) D-Dimer 338.70 H ABG pH POC ABG pCO2 POC ABG pO2 ABG pO2 ABG HCO3 ABG O2 Saturation ABG Base Excess ABG Oxyhemoglobin ABG Sodium ABG Chloride ABG Glucose Oxyhemoglobin Carboxyhemoglobin Sodium Potassium Chloride Carbon Dioxide BUN Creatinine Glucose 194 H POC Glucose Hemoglobin A1c Magnesium Ferritin AST ALT Alkaline Phosphatase Lactate Dehydrogenase C-Reactive Protein Total Protein 8.4 H Albumin 3.8 L Arterial Blood Glucose Coronavirus (PCR) 04/16/21 04/16/21 04/17/21 11:42 11:42 03:50 WBC MCV MCH MCHC RDW 16.0 H Lymph % (Auto) 7.7 L [place] % (Auto) Eos % (Auto) Lymph # (Auto) 0.6 L [place] # (Auto) Eos # (Auto) Baso # (Auto) Seg Neutrophils % 89.8 H Seg Neuts % (Manual) Lymphocytes % (Manual) Seg Neutrophils # Seg Neutrophils # Man Lymphocytes # (Manual) D-Dimer ABG pH POC ABG pCO2 POC ABG pO2 ABG pO2 ABG HCO3 ABG O2 Saturation ABG Base Excess ABG Oxyhemoglobin ABG Sodium ABG Chloride ABG Glucose Oxyhemoglobin Carboxyhemoglobin Sodium Potassium Chloride Carbon Dioxide BUN Creatinine Glucose 195 H POC Glucose Hemoglobin A1c Magnesium Ferritin 254.3 H AST ALT Alkaline Phosphatase Lactate Dehydrogenase 359 H C-Reactive Protein 15.20 H Total Protein Albumin Arterial Blood Glucose Coronavirus (PCR) 04/17/21 04/17/21 04/17/21 03:50 08:26 08:26 WBC MCV MCH MCHC RDW Lymph % (Auto) [place] % (Auto) Eos % (Auto) Lymph # (Auto) [place] # (Auto) Eos # (Auto) Baso # (Auto) Seg Neutrophils % Seg Neuts % (Manual) Lymphocytes % (Manual) Seg Neutrophils # Seg Neutrophils # Man Lymphocytes # (Manual) D-Dimer 262.48 H ABG pH POC ABG pCO2 POC ABG pO2 ABG pO2 ABG HCO3 ABG O2 Saturation ABG Base Excess ABG Oxyhemoglobin ABG Sodium ABG Chloride ABG Glucose Oxyhemoglobin Carboxyhemoglobin Sodium Potassium Chloride Carbon Dioxide BUN 20 H Creatinine 0.5 L Glucose 249 H 225 H POC Glucose Hemoglobin A1c Magnesium Ferritin AST ALT Alkaline Phosphatase Lactate Dehydrogenase 338 H C-Reactive Protein 17.20 H Total Protein Albumin 3.2 L Arterial Blood Glucose Coronavirus (PCR) 04/17/21 04/17/21 04/17/21 08:26 15:04 Unknown WBC MCV MCH MCHC RDW Lymph % (Auto) [place] % (Auto) Eos % (Auto) Lymph # (Auto) [place] # (Auto) Eos # (Auto) Baso # (Auto) Seg Neutrophils % Seg Neuts % (Manual) Lymphocytes % (Manual) Seg Neutrophils # Seg Neutrophils # Man Lymphocytes # (Manual) D-Dimer ABG pH POC ABG pCO2 POC ABG pO2 ABG pO2 ABG HCO3 ABG O2 Saturation ABG Base Excess ABG Oxyhemoglobin ABG Sodium ABG Chloride ABG Glucose Oxyhemoglobin Carboxyhemoglobin Sodium Potassium Chloride Carbon Dioxide BUN 20 H Creatinine 0.5 L Glucose 246 H POC Glucose Hemoglobin A1c Magnesium Ferritin 392.0 H AST ALT Alkaline Phosphatase Lactate Dehydrogenase C-Reactive Protein Total Protein 8.3 H Albumin 3.1 L Arterial Blood Glucose Coronavirus (PCR) Positive A 04/18/21 04/18/21 04/18/21 05:06 05:06 07:36 WBC 11.6 H MCV MCH MCHC RDW 16.1 H Lymph % (Auto) [place] % (Auto) Eos % (Auto) Lymph # (Auto) [place] # (Auto) Eos # (Auto) Baso # (Auto) Seg Neutrophils % Seg Neuts % (Manual) Lymphocytes % (Manual) Seg Neutrophils # Seg Neutrophils # Man Lymphocytes # (Manual) D-Dimer ABG pH POC ABG pCO2 POC ABG pO2 ABG pO2 ABG HCO3 ABG O2 Saturation ABG Base Excess ABG Oxyhemoglobin ABG Sodium ABG Chloride ABG Glucose Oxyhemoglobin Carboxyhemoglobin Sodium Potassium 5.2 H Chloride Carbon Dioxide BUN 22 H Creatinine 0.5 L Glucose 315 H POC Glucose Hemoglobin A1c 8.5 H Magnesium Ferritin AST ALT Alkaline Phosphatase Lactate Dehydrogenase C-Reactive Protein Total Protein Albumin 3.3 L Arterial Blood Glucose Coronavirus (PCR) 04/18/21 04/18/21 04/18/21 11:59 16:43 23:24 WBC MCV MCH MCHC RDW Lymph % (Auto) [place] % (Auto) Eos % (Auto) Lymph # (Auto) [place] # (Auto) Eos # (Auto) Baso # (Auto) Seg Neutrophils % Seg Neuts % (Manual) Lymphocytes % (Manual) Seg Neutrophils # Seg Neutrophils # Man Lymphocytes # (Manual) D-Dimer ABG pH POC ABG pCO2 POC ABG pO2 ABG pO2 ABG HCO3 ABG O2 Saturation ABG Base Excess ABG Oxyhemoglobin ABG Sodium ABG Chloride ABG Glucose Oxyhemoglobin Carboxyhemoglobin Sodium Potassium Chloride Carbon Dioxide BUN Creatinine Glucose POC Glucose 284 H 273 H 290 H Hemoglobin A1c Magnesium Ferritin AST ALT Alkaline Phosphatase Lactate Dehydrogenase C-Reactive Protein Total Protein Albumin Arterial Blood Glucose Coronavirus (PCR) 04/19/21 04/19/21 04/19/21 04:19 04:19 08:10 WBC MCV MCH MCHC RDW 15.7 H Lymph % (Auto) [place] % (Auto) Eos % (Auto) Lymph # (Auto) [place] # (Auto) Eos # (Auto) Baso # (Auto) Seg Neutrophils % Seg Neuts % (Manual) Lymphocytes % (Manual) Seg Neutrophils # Seg Neutrophils # Man Lymphocytes # (Manual) D-Dimer ABG pH POC ABG pCO2 POC ABG pO2 ABG pO2 ABG HCO3 ABG O2 Saturation ABG Base Excess ABG Oxyhemoglobin ABG Sodium ABG Chloride ABG Glucose Oxyhemoglobin Carboxyhemoglobin Sodium Potassium Chloride Carbon Dioxide BUN 27 H Creatinine 0.4 L Glucose 184 H POC Glucose 194 H Hemoglobin A1c Magnesium Ferritin AST ALT Alkaline Phosphatase Lactate Dehydrogenase C-Reactive Protein Total Protein Albumin 3.1 L Arterial Blood Glucose Coronavirus (PCR) 04/19/21 04/19/21 04/19/21 11:38 16:25 22:04 WBC MCV MCH MCHC RDW Lymph % (Auto) [place] % (Auto) Eos % (Auto) Lymph # (Auto) [place] # (Auto) Eos # (Auto) Baso # (Auto) Seg Neutrophils % Seg Neuts % (Manual) Lymphocytes % (Manual) Seg Neutrophils # Seg Neutrophils # Man Lymphocytes # (Manual) D-Dimer ABG pH POC ABG pCO2 POC ABG pO2 ABG pO2 ABG HCO3 ABG O2 Saturation ABG Base Excess ABG Oxyhemoglobin ABG Sodium ABG Chloride ABG Glucose Oxyhemoglobin Carboxyhemoglobin Sodium Potassium Chloride Carbon Dioxide BUN Creatinine Glucose POC Glucose 224 H 297 H 251 H Hemoglobin A1c Magnesium Ferritin AST ALT Alkaline Phosphatase Lactate Dehydrogenase C-Reactive Protein Total Protein Albumin Arterial Blood Glucose Coronavirus (PCR) 04/20/21 04/20/21 04/20/21 05:28 08:43 16:21 WBC MCV MCH MCHC RDW Lymph % (Auto) [place] % (Auto) Eos % (Auto) Lymph # (Auto) [place] # (Auto) Eos # (Auto) Baso # (Auto) Seg Neutrophils % Seg Neuts % (Manual) Lymphocytes % (Manual) Seg Neutrophils # Seg Neutrophils # Man Lymphocytes # (Manual) D-Dimer ABG pH POC ABG pCO2 POC ABG pO2 ABG pO2 ABG HCO3 ABG O2 Saturation ABG Base Excess ABG Oxyhemoglobin ABG Sodium ABG Chloride ABG Glucose Oxyhemoglobin Carboxyhemoglobin Sodium Potassium Chloride Carbon Dioxide BUN 27 H Creatinine Glucose 192 H POC Glucose 173 H 253 H Hemoglobin A1c Magnesium Ferritin AST ALT Alkaline Phosphatase Lactate Dehydrogenase C-Reactive Protein Total Protein Albumin 3.0 L Arterial Blood Glucose Coronavirus (PCR) 04/21/21 04/21/21 04/21/21 07:58 12:05 16:08 WBC MCV MCH MCHC RDW Lymph % (Auto) [place] % (Auto) Eos % (Auto) Lymph # (Auto) [place] # (Auto) Eos # (Auto) Baso # (Auto) Seg Neutrophils % Seg Neuts % (Manual) Lymphocytes % (Manual) Seg Neutrophils # Seg Neutrophils # Man Lymphocytes # (Manual) D-Dimer ABG pH POC ABG pCO2 POC ABG pO2 ABG pO2 ABG HCO3 ABG O2 Saturation ABG Base Excess ABG Oxyhemoglobin ABG Sodium ABG Chloride ABG Glucose Oxyhemoglobin Carboxyhemoglobin Sodium Potassium Chloride Carbon Dioxide BUN Creatinine Glucose POC Glucose 140 H 252 H 214 H Hemoglobin A1c Magnesium Ferritin AST ALT Alkaline Phosphatase Lactate Dehydrogenase C-Reactive Protein Total Protein Albumin Arterial Blood Glucose Coronavirus (PCR) 04/21/21 04/22/21 04/22/21 21:42 08:37 12:01 WBC MCV MCH MCHC RDW Lymph % (Auto) [place] % (Auto) Eos % (Auto) Lymph # (Auto) [place] # (Auto) Eos # (Auto) Baso # (Auto) Seg Neutrophils % Seg Neuts % (Manual) Lymphocytes % (Manual) Seg Neutrophils # Seg Neutrophils # Man Lymphocytes # (Manual) D-Dimer ABG pH 7.457 H POC ABG pCO2 POC ABG pO2 49.4 L ABG pO2 ABG HCO3 ABG O2 Saturation ABG Base Excess ABG Oxyhemoglobin 85.6 L ABG Sodium ABG Chloride ABG Glucose 121 H Oxyhemoglobin Carboxyhemoglobin 0.3 L Sodium Potassium Chloride Carbon Dioxide BUN Creatinine Glucose POC Glucose 162 H 227 H Hemoglobin A1c Magnesium Ferritin AST ALT Alkaline Phosphatase Lactate Dehydrogenase C-Reactive Protein Total Protein Albumin Arterial Blood Glucose 121 H Coronavirus (PCR) 04/22/21 04/22/21 04/23/21 16:26 22:23 04:52 WBC MCV MCH MCHC RDW 15.7 H Lymph % (Auto) [place] % (Auto) Eos % (Auto) Lymph # (Auto) [place] # (Auto) Eos # (Auto) Baso # (Auto) Seg Neutrophils % Seg Neuts % (Manual) Lymphocytes % (Manual) Seg Neutrophils # Seg Neutrophils # Man Lymphocytes # (Manual) D-Dimer ABG pH POC ABG pCO2 POC ABG pO2 ABG pO2 ABG HCO3 ABG O2 Saturation ABG Base Excess ABG Oxyhemoglobin ABG Sodium ABG Chloride ABG Glucose Oxyhemoglobin Carboxyhemoglobin Sodium Potassium Chloride Carbon Dioxide BUN Creatinine Glucose POC Glucose 200 H 136 H Hemoglobin A1c Magnesium Ferritin AST ALT Alkaline Phosphatase Lactate Dehydrogenase C-Reactive Protein Total Protein Albumin Arterial Blood Glucose Coronavirus (PCR) 04/23/21 04/23/21 04/23/21 04:52 12:06 17:41 WBC MCV MCH MCHC RDW Lymph % (Auto) [place] % (Auto) Eos % (Auto) Lymph # (Auto) [place] # (Auto) Eos # (Auto) Baso # (Auto) Seg Neutrophils % Seg Neuts % (Manual) Lymphocytes % (Manual) Seg Neutrophils # Seg Neutrophils # Man Lymphocytes # (Manual) D-Dimer ABG pH POC ABG pCO2 POC ABG pO2 ABG pO2 ABG HCO3 ABG O2 Saturation ABG Base Excess ABG Oxyhemoglobin ABG Sodium ABG Chloride ABG Glucose Oxyhemoglobin Carboxyhemoglobin Sodium 136 L Potassium Chloride 97.7 L Carbon Dioxide BUN 23 H Creatinine Glucose 101 H POC Glucose 202 H 169 H Hemoglobin A1c Magnesium Ferritin AST 46 H ALT Alkaline Phosphatase Lactate Dehydrogenase C-Reactive Protein Total Protein Albumin 3.3 L Arterial Blood Glucose Coronavirus (PCR) 04/23/21 04/24/21 04/24/21 23:08 05:17 08:38 WBC MCV MCH MCHC RDW Lymph % (Auto) [place] % (Auto) Eos % (Auto) Lymph # (Auto) [place] # (Auto) Eos # (Auto) Baso # (Auto) Seg Neutrophils % Seg Neuts % (Manual) Lymphocytes % (Manual) Seg Neutrophils # Seg Neutrophils # Man Lymphocytes # (Manual) D-Dimer ABG pH POC ABG pCO2 POC ABG pO2 ABG pO2 ABG HCO3 ABG O2 Saturation ABG Base Excess ABG Oxyhemoglobin ABG Sodium ABG Chloride ABG Glucose Oxyhemoglobin Carboxyhemoglobin Sodium Potassium Chloride Carbon Dioxide BUN Creatinine Glucose POC Glucose 111 H 108 H 126 H Hemoglobin A1c Magnesium Ferritin AST ALT Alkaline Phosphatase Lactate Dehydrogenase C-Reactive Protein Total Protein Albumin Arterial Blood Glucose Coronavirus (PCR) 04/24/21 04/24/21 04/24/21 11:54 17:57 21:23 WBC MCV MCH MCHC RDW Lymph % (Auto) [place] % (Auto) Eos % (Auto) Lymph # (Auto) [place] # (Auto) Eos # (Auto) Baso # (Auto) Seg Neutrophils % Seg Neuts % (Manual) Lymphocytes % (Manual) Seg Neutrophils # Seg Neutrophils # Man Lymphocytes # (Manual) D-Dimer ABG pH POC ABG pCO2 POC ABG pO2 ABG pO2 ABG HCO3 ABG O2 Saturation ABG Base Excess ABG Oxyhemoglobin ABG Sodium ABG Chloride ABG Glucose Oxyhemoglobin Carboxyhemoglobin Sodium Potassium Chloride Carbon Dioxide BUN Creatinine Glucose POC Glucose 147 H 177 H 138 H Hemoglobin A1c Magnesium Ferritin AST ALT Alkaline Phosphatase Lactate Dehydrogenase C-Reactive Protein Total Protein Albumin Arterial Blood Glucose Coronavirus (PCR) 04/25/21 04/25/21 04/25/21 07:06 11:23 15:43 WBC MCV MCH MCHC RDW Lymph % (Auto) [place] % (Auto) Eos % (Auto) Lymph # (Auto) [place] # (Auto) Eos # (Auto) Baso # (Auto) Seg Neutrophils % Seg Neuts % (Manual) Lymphocytes % (Manual) Seg Neutrophils # Seg Neutrophils # Man Lymphocytes # (Manual) D-Dimer ABG pH POC ABG pCO2 POC ABG pO2 ABG pO2 ABG HCO3 ABG O2 Saturation ABG Base Excess ABG Oxyhemoglobin ABG Sodium ABG Chloride ABG Glucose Oxyhemoglobin Carboxyhemoglobin Sodium Potassium Chloride Carbon Dioxide BUN Creatinine Glucose POC Glucose 147 H 169 H 227 H Hemoglobin A1c Magnesium Ferritin AST ALT Alkaline Phosphatase Lactate Dehydrogenase C-Reactive Protein Total Protein Albumin Arterial Blood Glucose Coronavirus (PCR) 04/25/21 04/26/21 04/26/21 21:22 02:45 05:15 WBC MCV MCH MCHC RDW Lymph % (Auto) [place] % (Auto) Eos % (Auto) Lymph # (Auto) [place] # (Auto) Eos # (Auto) Baso # (Auto) Seg Neutrophils % Seg Neuts % (Manual) Lymphocytes % (Manual) Seg Neutrophils # Seg Neutrophils # Man Lymphocytes # (Manual) D-Dimer ABG pH POC ABG pCO2 POC ABG pO2 70.7 L ABG pO2 ABG HCO3 ABG O2 Saturation ABG Base Excess ABG Oxyhemoglobin 93.0 L ABG Sodium 132.7 L ABG Chloride ABG Glucose 115 H Oxyhemoglobin Carboxyhemoglobin Sodium Potassium Chloride 95.8 L Carbon Dioxide 32 H BUN 20 H Creatinine Glucose 102 H POC Glucose 196 H Hemoglobin A1c Magnesium Ferritin AST ALT Alkaline Phosphatase Lactate Dehydrogenase C-Reactive Protein Total Protein Albumin Arterial Blood Glucose 115 H Coronavirus (PCR) 04/26/21 04/26/21 04/26/21 11:49 16:09 21:07 WBC MCV MCH MCHC RDW Lymph % (Auto) [place] % (Auto) Eos % (Auto) Lymph # (Auto) [place] # (Auto) Eos # (Auto) Baso # (Auto) Seg Neutrophils % Seg Neuts % (Manual) Lymphocytes % (Manual) Seg Neutrophils # Seg Neutrophils # Man Lymphocytes # (Manual) D-Dimer ABG pH POC ABG pCO2 POC ABG pO2 ABG pO2 ABG HCO3 ABG O2 Saturation ABG Base Excess ABG Oxyhemoglobin ABG Sodium ABG Chloride ABG Glucose Oxyhemoglobin Carboxyhemoglobin Sodium Potassium Chloride Carbon Dioxide BUN Creatinine Glucose POC Glucose 114 H 188 H 136 H Hemoglobin A1c Magnesium Ferritin AST ALT Alkaline Phosphatase Lactate Dehydrogenase C-Reactive Protein Total Protein Albumin Arterial Blood Glucose Coronavirus (PCR) 04/27/21 04/27/21 04/28/21 17:34 22:12 08:26 WBC MCV MCH MCHC RDW Lymph % (Auto) [place] % (Auto) Eos % (Auto) Lymph # (Auto) [place] # (Auto) Eos # (Auto) Baso # (Auto) Seg Neutrophils % Seg Neuts % (Manual) Lymphocytes % (Manual) Seg Neutrophils # Seg Neutrophils # Man Lymphocytes # (Manual) D-Dimer ABG pH POC ABG pCO2 POC ABG pO2 ABG pO2 ABG HCO3 ABG O2 Saturation ABG Base Excess ABG Oxyhemoglobin ABG Sodium ABG Chloride ABG Glucose Oxyhemoglobin Carboxyhemoglobin Sodium Potassium Chloride Carbon Dioxide BUN Creatinine Glucose POC Glucose 128 H 159 H 69 L Hemoglobin A1c Magnesium Ferritin AST ALT Alkaline Phosphatase Lactate Dehydrogenase C-Reactive Protein Total Protein Albumin Arterial Blood Glucose Coronavirus (PCR) 04/28/21 04/28/21 04/29/21 12:22 21:11 06:05 WBC MCV MCH MCHC RDW Lymph % (Auto) [place] % (Auto) Eos % (Auto) Lymph # (Auto) [place] # (Auto) Eos # (Auto) Baso # (Auto) Seg Neutrophils % Seg Neuts % (Manual) Lymphocytes % (Manual) Seg Neutrophils # Seg Neutrophils # Man Lymphocytes # (Manual) D-Dimer ABG pH POC ABG pCO2 POC ABG pO2 ABG pO2 ABG HCO3 ABG O2 Saturation ABG Base Excess ABG Oxyhemoglobin ABG Sodium ABG Chloride ABG Glucose Oxyhemoglobin Carboxyhemoglobin Sodium 132 L Potassium Chloride 94.4 L Carbon Dioxide BUN Creatinine 0.2 L D Glucose 140 H POC Glucose 141 H 171 H Hemoglobin A1c Magnesium Ferritin AST ALT Alkaline Phosphatase Lactate Dehydrogenase C-Reactive Protein Total Protein Albumin Arterial Blood Glucose Coronavirus (PCR) 04/29/21 04/29/21 04/29/21 06:05 07:24 11:36 WBC MCV MCH MCHC 35 H RDW 15.9 H Lymph % (Auto) [place] % (Auto) Eos % (Auto) Lymph # (Auto) [place] # (Auto) Eos # (Auto) Baso # (Auto) Seg Neutrophils % Seg Neuts % (Manual) Lymphocytes % (Manual) Seg Neutrophils # Seg Neutrophils # Man Lymphocytes # (Manual) D-Dimer ABG pH POC ABG pCO2 POC ABG pO2 ABG pO2 ABG HCO3 ABG O2 Saturation ABG Base Excess ABG Oxyhemoglobin ABG Sodium ABG Chloride ABG Glucose Oxyhemoglobin Carboxyhemoglobin Sodium Potassium Chloride Carbon Dioxide BUN Creatinine Glucose POC Glucose 141 H 220 H Hemoglobin A1c Magnesium Ferritin AST ALT Alkaline Phosphatase Lactate Dehydrogenase C-Reactive Protein Total Protein Albumin Arterial Blood Glucose Coronavirus (PCR) 04/29/21 04/29/21 04/29/21 14:23 15:30 17:06 WBC MCV MCH MCHC RDW Lymph % (Auto) [place] % (Auto) Eos % (Auto) Lymph # (Auto) [place] # (Auto) Eos # (Auto) Baso # (Auto) Seg Neutrophils % Seg Neuts % (Manual) Lymphocytes % (Manual) Seg Neutrophils # Seg Neutrophils # Man Lymphocytes # (Manual) D-Dimer ABG pH POC ABG pCO2 POC ABG pO2 ABG pO2 52.6 L ABG HCO3 ABG O2 Saturation 86.4 L ABG Base Excess ABG Oxyhemoglobin ABG Sodium ABG Chloride ABG Glucose Oxyhemoglobin 84.6 L Carboxyhemoglobin Sodium Potassium Chloride Carbon Dioxide BUN Creatinine Glucose POC Glucose 173 H 158 H Hemoglobin A1c Magnesium Ferritin AST ALT Alkaline Phosphatase Lactate Dehydrogenase C-Reactive Protein Total Protein Albumin Arterial Blood Glucose Coronavirus (PCR) 04/29/21 04/30/21 04/30/21 21:27 07:16 08:00 WBC MCV MCH MCHC RDW 16.1 H Lymph % (Auto) [place] % (Auto) Eos % (Auto) Lymph # (Auto) [place] # (Auto) Eos # (Auto) Baso # (Auto) Seg Neutrophils % Seg Neuts % (Manual) Lymphocytes % (Manual) Seg Neutrophils # Seg Neutrophils # Man Lymphocytes # (Manual) D-Dimer ABG pH POC ABG pCO2 POC ABG pO2 ABG pO2 ABG HCO3 ABG O2 Saturation ABG Base Excess ABG Oxyhemoglobin ABG Sodium ABG Chloride ABG Glucose Oxyhemoglobin Carboxyhemoglobin Sodium Potassium Chloride Carbon Dioxide BUN Creatinine Glucose POC Glucose 244 H 175 H Hemoglobin A1c Magnesium Ferritin AST ALT Alkaline Phosphatase Lactate Dehydrogenase C-Reactive Protein Total Protein Albumin Arterial Blood Glucose Coronavirus (PCR) 04/30/21 04/30/21 04/30/21 08:00 08:00 11:03 WBC MCV MCH MCHC RDW Lymph % (Auto) [place] % (Auto) Eos % (Auto) Lymph # (Auto) [place] # (Auto) Eos # (Auto) Baso # (Auto) Seg Neutrophils % Seg Neuts % (Manual) Lymphocytes % (Manual) Seg Neutrophils # Seg Neutrophils # Man Lymphocytes # (Manual) D-Dimer 1796.87 H ABG pH POC ABG pCO2 POC ABG pO2 ABG pO2 ABG HCO3 ABG O2 Saturation ABG Base Excess ABG Oxyhemoglobin ABG Sodium ABG Chloride ABG Glucose Oxyhemoglobin Carboxyhemoglobin Sodium 135 L Potassium Chloride 96.3 L Carbon Dioxide BUN Creatinine 0.2 L Glucose 153 H POC Glucose 183 H Hemoglobin A1c Magnesium Ferritin AST 41 H ALT 76 H Alkaline Phosphatase 160 H Lactate Dehydrogenase 522 H C-Reactive Protein Total Protein 6.1 L Albumin 3.1 L Arterial Blood Glucose Coronavirus (PCR) 04/30/21 04/30/21 05/01/21 17:04 22:17 05:39 WBC MCV MCH MCHC RDW Lymph % (Auto) [place] % (Auto) Eos % (Auto) Lymph # (Auto) [place] # (Auto) Eos # (Auto) Baso # (Auto) Seg Neutrophils % Seg Neuts % (Manual) Lymphocytes % (Manual) Seg Neutrophils # Seg Neutrophils # Man Lymphocytes # (Manual) D-Dimer ABG pH POC ABG pCO2 POC ABG pO2 ABG pO2 ABG HCO3 ABG O2 Saturation ABG Base Excess ABG Oxyhemoglobin ABG Sodium ABG Chloride ABG Glucose Oxyhemoglobin Carboxyhemoglobin Sodium 133 L Potassium Chloride 92.1 L Carbon Dioxide BUN 24 H Creatinine 0.4 L D Glucose 269 H POC Glucose 167 H 208 H Hemoglobin A1c Magnesium Ferritin AST ALT 66 H Alkaline Phosphatase 142 H Lactate Dehydrogenase C-Reactive Protein Total Protein Albumin 3.2 L Arterial Blood Glucose Coronavirus (PCR) 05/01/21 05/01/21 05/01/21 05:39 05:39 07:45 WBC MCV MCH MCHC RDW 16.0 H Lymph % (Auto) [place] % (Auto) Eos % (Auto) Lymph # (Auto) [place] # (Auto) Eos # (Auto) Baso # (Auto) Seg Neutrophils % Seg Neuts % (Manual) Lymphocytes % (Manual) Seg Neutrophils # Seg Neutrophils # Man Lymphocytes # (Manual) D-Dimer 3984.95 H ABG pH POC ABG pCO2 POC ABG pO2 ABG pO2 ABG HCO3 ABG O2 Saturation ABG Base Excess ABG Oxyhemoglobin ABG Sodium ABG Chloride ABG Glucose Oxyhemoglobin Carboxyhemoglobin Sodium Potassium Chloride Carbon Dioxide BUN Creatinine Glucose POC Glucose 229 H Hemoglobin A1c Magnesium Ferritin AST ALT Alkaline Phosphatase Lactate Dehydrogenase C-Reactive Protein Total Protein Albumin Arterial Blood Glucose Coronavirus (PCR) 05/01/21 05/01/21 05/01/21 12:10 15:46 21:06 WBC MCV MCH MCHC RDW Lymph % (Auto) [place] % (Auto) Eos % (Auto) Lymph # (Auto) [place] # (Auto) Eos # (Auto) Baso # (Auto) Seg Neutrophils % Seg Neuts % (Manual) Lymphocytes % (Manual) Seg Neutrophils # Seg Neutrophils # Man Lymphocytes # (Manual) D-Dimer ABG pH POC ABG pCO2 POC ABG pO2 ABG pO2 ABG HCO3 ABG O2 Saturation ABG Base Excess ABG Oxyhemoglobin ABG Sodium ABG Chloride ABG Glucose Oxyhemoglobin Carboxyhemoglobin Sodium Potassium Chloride Carbon Dioxide BUN Creatinine Glucose POC Glucose 296 H 279 H 232 H Hemoglobin A1c Magnesium Ferritin AST ALT Alkaline Phosphatase Lactate Dehydrogenase C-Reactive Protein Total Protein Albumin Arterial Blood Glucose Coronavirus (PCR) 05/02/21 05/02/21 05/02/21 04:55 04:55 04:55 WBC MCV MCH MCHC RDW 16.1 H Lymph % (Auto) [place] % (Auto) Eos % (Auto) Lymph # (Auto) [place] # (Auto) Eos # (Auto) Baso # (Auto) Seg Neutrophils % Seg Neuts % (Manual) Lymphocytes % (Manual) Seg Neutrophils # Seg Neutrophils # Man Lymphocytes # (Manual) D-Dimer 1401.08 H ABG pH POC ABG pCO2 POC ABG pO2 ABG pO2 ABG HCO3 ABG O2 Saturation ABG Base Excess ABG Oxyhemoglobin ABG Sodium ABG Chloride ABG Glucose Oxyhemoglobin Carboxyhemoglobin Sodium 131 L Potassium Chloride 95.5 L Carbon Dioxide BUN 20 H Creatinine 0.3 L Glucose 288 H POC Glucose Hemoglobin A1c Magnesium Ferritin AST ALT Alkaline Phosphatase Lactate Dehydrogenase C-Reactive Protein Total Protein 6.0 L Albumin 3.1 L Arterial Blood Glucose Coronavirus (PCR) 05/02/21 05/02/21 05/02/21 07:53 11:45 15:25 WBC MCV MCH MCHC RDW Lymph % (Auto) [place] % (Auto) Eos % (Auto) Lymph # (Auto) [place] # (Auto) Eos # (Auto) Baso # (Auto) Seg Neutrophils % Seg Neuts % (Manual) Lymphocytes % (Manual) Seg Neutrophils # Seg Neutrophils # Man Lymphocytes # (Manual) D-Dimer ABG pH POC ABG pCO2 POC ABG pO2 ABG pO2 ABG HCO3 ABG O2 Saturation ABG Base Excess ABG Oxyhemoglobin ABG Sodium ABG Chloride ABG Glucose Oxyhemoglobin Carboxyhemoglobin Sodium Potassium Chloride Carbon Dioxide BUN Creatinine Glucose POC Glucose 180 H 228 H 275 H Hemoglobin A1c Magnesium Ferritin AST ALT Alkaline Phosphatase Lactate Dehydrogenase C-Reactive Protein Total Protein Albumin Arterial Blood Glucose Coronavirus (PCR) 05/02/21 05/03/21 05/03/21 22:56 04:30 04:49 WBC MCV MCH MCHC RDW Lymph % (Auto) [place] % (Auto) Eos % (Auto) Lymph # (Auto) [place] # (Auto) Eos # (Auto) Baso # (Auto) Seg Neutrophils % Seg Neuts % (Manual) Lymphocytes % (Manual) Seg Neutrophils # Seg Neutrophils # Man Lymphocytes # (Manual) D-Dimer ABG pH 7.229 L POC ABG pCO2 POC ABG pO2 65.3 L ABG pO2 ABG HCO3 ABG O2 Saturation ABG Base Excess ABG Oxyhemoglobin 87.8 L ABG Sodium 133.0 L ABG Chloride 97.0 L ABG Glucose 403 H Oxyhemoglobin Carboxyhemoglobin Sodium 130 L Potassium Chloride 94.9 L Carbon Dioxide BUN 20 H Creatinine 0.5 L D Glucose 359 H POC Glucose 293 H Hemoglobin A1c Magnesium Ferritin AST 54 H ALT 75 H Alkaline Phosphatase 138 H Lactate Dehydrogenase C-Reactive Protein Total Protein Albumin 3.6 L Arterial Blood Glucose 403 H Coronavirus (PCR) 05/03/21 05/03/21 05/03/21 05:27 11:26 17:57 WBC MCV MCH MCHC RDW Lymph % (Auto) [place] % (Auto) Eos % (Auto) Lymph # (Auto) [place] # (Auto) Eos # (Auto) Baso # (Auto) Seg Neutrophils % Seg Neuts % (Manual) Lymphocytes % (Manual) Seg Neutrophils # Seg Neutrophils # Man Lymphocytes # (Manual) D-Dimer ABG pH POC ABG pCO2 POC ABG pO2 ABG pO2 ABG HCO3 ABG O2 Saturation ABG Base Excess ABG Oxyhemoglobin ABG Sodium ABG Chloride ABG Glucose Oxyhemoglobin Carboxyhemoglobin Sodium Potassium Chloride Carbon Dioxide BUN Creatinine Glucose POC Glucose 361 H 297 H 226 H Hemoglobin A1c Magnesium Ferritin AST ALT Alkaline Phosphatase Lactate Dehydrogenase C-Reactive Protein Total Protein Albumin Arterial Blood Glucose Coronavirus (PCR) 05/03/21 05/04/21 05/04/21 23:12 05:12 07:30 WBC MCV MCH MCHC RDW Lymph % (Auto) [place] % (Auto) Eos % (Auto) Lymph # (Auto) [place] # (Auto) Eos # (Auto) Baso # (Auto) Seg Neutrophils % Seg Neuts % (Manual) Lymphocytes % (Manual) Seg Neutrophils # Seg Neutrophils # Man Lymphocytes # (Manual) D-Dimer ABG pH POC ABG pCO2 POC ABG pO2 ABG pO2 ABG HCO3 ABG O2 Saturation ABG Base Excess ABG Oxyhemoglobin ABG Sodium ABG Chloride ABG Glucose Oxyhemoglobin Carboxyhemoglobin Sodium Potassium Chloride Carbon Dioxide BUN Creatinine Glucose POC Glucose 282 H 285 H 254 H Hemoglobin A1c Magnesium Ferritin AST ALT Alkaline Phosphatase Lactate Dehydrogenase C-Reactive Protein Total Protein Albumin Arterial Blood Glucose Coronavirus (PCR) 05/04/21 05/04/21 05/04/21 08:58 11:45 16:07 WBC MCV MCH MCHC RDW Lymph % (Auto) [place] % (Auto) Eos % (Auto) Lymph # (Auto) [place] # (Auto) Eos # (Auto) Baso # (Auto) Seg Neutrophils % Seg Neuts % (Manual) Lymphocytes % (Manual) Seg Neutrophils # Seg Neutrophils # Man Lymphocytes # (Manual) D-Dimer ABG pH POC ABG pCO2 POC ABG pO2 ABG pO2 ABG HCO3 ABG O2 Saturation ABG Base Excess ABG Oxyhemoglobin ABG Sodium ABG Chloride ABG Glucose Oxyhemoglobin Carboxyhemoglobin Sodium 134 L Potassium Chloride Carbon Dioxide BUN 20 H Creatinine 0.3 L Glucose 267 H POC Glucose 244 H 297 H Hemoglobin A1c Magnesium Ferritin AST ALT Alkaline Phosphatase Lactate Dehydrogenase C-Reactive Protein Total Protein 6.0 L Albumin 3.2 L Arterial Blood Glucose Coronavirus (PCR) 05/04/21 05/05/21 05/05/21 23:32 05:00 05:13 WBC MCV MCH MCHC RDW Lymph % (Auto) [place] % (Auto) Eos % (Auto) Lymph # (Auto) [place] # (Auto) Eos # (Auto) Baso # (Auto) Seg Neutrophils % Seg Neuts % (Manual) Lymphocytes % (Manual) Seg Neutrophils # Seg Neutrophils # Man Lymphocytes # (Manual) D-Dimer ABG pH POC ABG pCO2 POC ABG pO2 ABG pO2 ABG HCO3 ABG O2 Saturation ABG Base Excess ABG Oxyhemoglobin ABG Sodium ABG Chloride ABG Glucose Oxyhemoglobin Carboxyhemoglobin Sodium 132 L Potassium Chloride 96.4 L Carbon Dioxide BUN 22 H Creatinine 0.3 L Glucose 228 H POC Glucose 154 H 260 H Hemoglobin A1c Magnesium Ferritin AST ALT 67 H Alkaline Phosphatase Lactate Dehydrogenase C-Reactive Protein Total Protein 6.1 L Albumin 3.2 L Arterial Blood Glucose Coronavirus (PCR) 05/05/21 05/05/21 05/05/21 11:32 17:49 23:07 WBC MCV MCH MCHC RDW Lymph % (Auto) [place] % (Auto) Eos % (Auto) Lymph # (Auto) [place] # (Auto) Eos # (Auto) Baso # (Auto) Seg Neutrophils % Seg Neuts % (Manual) Lymphocytes % (Manual) Seg Neutrophils # Seg Neutrophils # Man Lymphocytes # (Manual) D-Dimer ABG pH POC ABG pCO2 POC ABG pO2 ABG pO2 ABG HCO3 ABG O2 Saturation ABG Base Excess ABG Oxyhemoglobin ABG Sodium ABG Chloride ABG Glucose Oxyhemoglobin Carboxyhemoglobin Sodium Potassium Chloride Carbon Dioxide BUN Creatinine Glucose POC Glucose 279 H 308 H 213 H Hemoglobin A1c Magnesium Ferritin AST ALT Alkaline Phosphatase Lactate Dehydrogenase C-Reactive Protein Total Protein Albumin Arterial Blood Glucose Coronavirus (PCR) 05/06/21 05/06/21 05/06/21 05:00 05:00 05:20 WBC MCV MCH MCHC RDW 16.8 H Lymph % (Auto) [place] % (Auto) Eos % (Auto) Lymph # (Auto) [place] # (Auto) Eos # (Auto) Baso # (Auto) Seg Neutrophils % Seg Neuts % (Manual) 99.0 H Lymphocytes % (Manual) Seg Neutrophils # Seg Neutrophils # Man 10.9 H Lymphocytes # (Manual) 0.0 L D-Dimer ABG pH POC ABG pCO2 POC ABG pO2 ABG pO2 ABG HCO3 ABG O2 Saturation ABG Base Excess ABG Oxyhemoglobin ABG Sodium ABG Chloride ABG Glucose Oxyhemoglobin Carboxyhemoglobin Sodium 133 L Potassium Chloride Carbon Dioxide BUN 21 H Creatinine 0.3 L Glucose 259 H POC Glucose 308 H Hemoglobin A1c Magnesium Ferritin AST ALT Alkaline Phosphatase Lactate Dehydrogenase C-Reactive Protein Total Protein Albumin 3.2 L Arterial Blood Glucose Coronavirus (PCR) 05/06/21 05/06/21 05/06/21 11:24 17:54 21:32 WBC MCV MCH MCHC RDW Lymph % (Auto) [place] % (Auto) Eos % (Auto) Lymph # (Auto) [place] # (Auto) Eos # (Auto) Baso # (Auto) Seg Neutrophils % Seg Neuts % (Manual) Lymphocytes % (Manual) Seg Neutrophils # Seg Neutrophils # Man Lymphocytes # (Manual) D-Dimer ABG pH POC ABG pCO2 POC ABG pO2 ABG pO2 ABG HCO3 ABG O2 Saturation ABG Base Excess ABG Oxyhemoglobin ABG Sodium ABG Chloride ABG Glucose Oxyhemoglobin Carboxyhemoglobin Sodium Potassium Chloride Carbon Dioxide BUN Creatinine Glucose POC Glucose 262 H 124 H 246 H Hemoglobin A1c Magnesium Ferritin AST ALT Alkaline Phosphatase Lactate Dehydrogenase C-Reactive Protein Total Protein Albumin Arterial Blood Glucose Coronavirus (PCR) 05/06/21 05/07/21 05/07/21 23:10 04:54 04:54 WBC MCV MCH MCHC RDW Lymph % (Auto) [place] % (Auto) Eos % (Auto) Lymph # (Auto) [place] # (Auto) Eos # (Auto) Baso # (Auto) Seg Neutrophils % Seg Neuts % (Manual) Lymphocytes % (Manual) Seg Neutrophils # Seg Neutrophils # Man Lymphocytes # (Manual) D-Dimer 1609.28 H ABG pH POC ABG pCO2 POC ABG pO2 ABG pO2 ABG HCO3 ABG O2 Saturation ABG Base Excess ABG Oxyhemoglobin ABG Sodium ABG Chloride ABG Glucose Oxyhemoglobin Carboxyhemoglobin Sodium 136 L Potassium Chloride Carbon Dioxide BUN 23 H Creatinine 0.3 L Glucose 110 H POC Glucose 249 H Hemoglobin A1c Magnesium Ferritin AST ALT Alkaline Phosphatase Lactate Dehydrogenase C-Reactive Protein Total Protein 6.2 L Albumin 3.0 L Arterial Blood Glucose Coronavirus (PCR) 05/07/21 05/07/21 05/07/21 04:54 04:54 11:41 WBC MCV MCH MCHC RDW Lymph % (Auto) [place] % (Auto) Eos % (Auto) Lymph # (Auto) [place] # (Auto) Eos # (Auto) Baso # (Auto) Seg Neutrophils % Seg Neuts % (Manual) Lymphocytes % (Manual) Seg Neutrophils # Seg Neutrophils # Man Lymphocytes # (Manual) D-Dimer ABG pH POC ABG pCO2 POC ABG pO2 ABG pO2 ABG HCO3 ABG O2 Saturation ABG Base Excess ABG Oxyhemoglobin ABG Sodium ABG Chloride ABG Glucose Oxyhemoglobin Carboxyhemoglobin Sodium Potassium Chloride Carbon Dioxide BUN Creatinine Glucose POC Glucose 118 H Hemoglobin A1c Magnesium Ferritin 296.1 H AST ALT Alkaline Phosphatase Lactate Dehydrogenase 724 H C-Reactive Protein Total Protein Albumin Arterial Blood Glucose Coronavirus (PCR) 05/07/21 05/07/21 05/08/21 16:43 22:34 06:44 WBC MCV MCH MCHC RDW Lymph % (Auto) [place] % (Auto) Eos % (Auto) Lymph # (Auto) [place] # (Auto) Eos # (Auto) Baso # (Auto) Seg Neutrophils % Seg Neuts % (Manual) Lymphocytes % (Manual) Seg Neutrophils # Seg Neutrophils # Man Lymphocytes # (Manual) D-Dimer ABG pH POC ABG pCO2 POC ABG pO2 ABG pO2 ABG HCO3 ABG O2 Saturation ABG Base Excess ABG Oxyhemoglobin ABG Sodium ABG Chloride ABG Glucose Oxyhemoglobin Carboxyhemoglobin Sodium Potassium Chloride Carbon Dioxide BUN Creatinine Glucose POC Glucose 159 H 233 H 235 H Hemoglobin A1c Magnesium Ferritin AST ALT Alkaline Phosphatase Lactate Dehydrogenase C-Reactive Protein Total Protein Albumin Arterial Blood Glucose Coronavirus (PCR) 05/08/21 05/08/21 05/08/21 07:49 11:56 17:13 WBC MCV MCH MCHC RDW Lymph % (Auto) [place] % (Auto) Eos % (Auto) Lymph # (Auto) [place] # (Auto) Eos # (Auto) Baso # (Auto) Seg Neutrophils % Seg Neuts % (Manual) Lymphocytes % (Manual) Seg Neutrophils # Seg Neutrophils # Man Lymphocytes # (Manual) D-Dimer ABG pH POC ABG pCO2 POC ABG pO2 ABG pO2 ABG HCO3 ABG O2 Saturation ABG Base Excess ABG Oxyhemoglobin ABG Sodium ABG Chloride ABG Glucose Oxyhemoglobin Carboxyhemoglobin Sodium Potassium Chloride Carbon Dioxide BUN Creatinine Glucose POC Glucose 219 H 184 H 182 H Hemoglobin A1c Magnesium Ferritin AST ALT Alkaline Phosphatase Lactate Dehydrogenase C-Reactive Protein Total Protein Albumin Arterial Blood Glucose Coronavirus (PCR) 05/08/21 05/09/21 05/09/21 23:35 05:20 05:20 WBC MCV MCH MCHC RDW Lymph % (Auto) [place] % (Auto) Eos % (Auto) Lymph # (Auto) [place] # (Auto) Eos # (Auto) Baso # (Auto) Seg Neutrophils % Seg Neuts % (Manual) Lymphocytes % (Manual) Seg Neutrophils # Seg Neutrophils # Man Lymphocytes # (Manual) D-Dimer 1003.87 H ABG pH POC ABG pCO2 POC ABG pO2 ABG pO2 ABG HCO3 ABG O2 Saturation ABG Base Excess ABG Oxyhemoglobin ABG Sodium ABG Chloride ABG Glucose Oxyhemoglobin Carboxyhemoglobin Sodium Potassium Chloride Carbon Dioxide BUN Creatinine Glucose POC Glucose 198 H Hemoglobin A1c Magnesium Ferritin 378.7 H AST ALT Alkaline Phosphatase Lactate Dehydrogenase C-Reactive Protein Total Protein Albumin Arterial Blood Glucose Coronavirus (PCR) 05/09/21 05/09/21 05/09/21 05:20 06:04 12:53 WBC MCV MCH MCHC RDW Lymph % (Auto) [place] % (Auto) Eos % (Auto) Lymph # (Auto) [place] # (Auto) Eos # (Auto) Baso # (Auto) Seg Neutrophils % Seg Neuts % (Manual) Lymphocytes % (Manual) Seg Neutrophils # Seg Neutrophils # Man Lymphocytes # (Manual) D-Dimer ABG pH POC ABG pCO2 POC ABG pO2 ABG pO2 ABG HCO3 ABG O2 Saturation ABG Base Excess ABG Oxyhemoglobin ABG Sodium ABG Chloride ABG Glucose Oxyhemoglobin Carboxyhemoglobin Sodium Potassium Chloride Carbon Dioxide BUN Creatinine Glucose POC Glucose 159 H 180 H Hemoglobin A1c Magnesium Ferritin AST ALT Alkaline Phosphatase Lactate Dehydrogenase 558 H C-Reactive Protein 2.40 H Total Protein Albumin Arterial Blood Glucose Coronavirus (PCR) 05/09/21 05/09/21 05/10/21 16:43 21:27 10:18 WBC MCV MCH MCHC RDW Lymph % (Auto) [place] % (Auto) Eos % (Auto) Lymph # (Auto) [place] # (Auto) Eos # (Auto) Baso # (Auto) Seg Neutrophils % Seg Neuts % (Manual) Lymphocytes % (Manual) Seg Neutrophils # Seg Neutrophils # Man Lymphocytes # (Manual) D-Dimer ABG pH POC ABG pCO2 POC ABG pO2 ABG pO2 ABG HCO3 ABG O2 Saturation ABG Base Excess ABG Oxyhemoglobin ABG Sodium ABG Chloride ABG Glucose Oxyhemoglobin Carboxyhemoglobin Sodium Potassium Chloride Carbon Dioxide BUN Creatinine Glucose POC Glucose 212 H 285 H 261 H Hemoglobin A1c Magnesium Ferritin AST ALT Alkaline Phosphatase Lactate Dehydrogenase C-Reactive Protein Total Protein Albumin Arterial Blood Glucose Coronavirus (PCR) 05/10/21 05/10/21 05/11/21 17:58 18:02 00:29 WBC MCV MCH MCHC RDW Lymph % (Auto) [place] % (Auto) Eos % (Auto) Lymph # (Auto) [place] # (Auto) Eos # (Auto) Baso # (Auto) Seg Neutrophils % Seg Neuts % (Manual) Lymphocytes % (Manual) Seg Neutrophils # Seg Neutrophils # Man Lymphocytes # (Manual) D-Dimer ABG pH POC ABG pCO2 POC ABG pO2 ABG pO2 ABG HCO3 ABG O2 Saturation ABG Base Excess ABG Oxyhemoglobin ABG Sodium ABG Chloride ABG Glucose Oxyhemoglobin Carboxyhemoglobin Sodium Potassium Chloride Carbon Dioxide BUN Creatinine Glucose POC Glucose 213 H 179 H 149 H Hemoglobin A1c Magnesium Ferritin AST ALT Alkaline Phosphatase Lactate Dehydrogenase C-Reactive Protein Total Protein Albumin Arterial Blood Glucose Coronavirus (PCR) 05/11/21 05/11/21 05/11/21 05:22 11:32 17:00 WBC 14.9 H MCV MCH MCHC RDW 18.9 H Lymph % (Auto) 4.9 L [place] % (Auto) Eos % (Auto) Lymph # (Auto) 0.7 L [place] # (Auto) Eos # (Auto) Baso # (Auto) 0.2 H Seg Neutrophils % Seg Neuts % (Manual) Lymphocytes % (Manual) Seg Neutrophils # 13.3 H Seg Neutrophils # Man Lymphocytes # (Manual) D-Dimer ABG pH POC ABG pCO2 POC ABG pO2 ABG pO2 ABG HCO3 ABG O2 Saturation ABG Base Excess ABG Oxyhemoglobin ABG Sodium ABG Chloride ABG Glucose Oxyhemoglobin Carboxyhemoglobin Sodium Potassium Chloride Carbon Dioxide BUN Creatinine Glucose POC Glucose 162 H 179 H Hemoglobin A1c Magnesium Ferritin AST ALT Alkaline Phosphatase Lactate Dehydrogenase C-Reactive Protein Total Protein Albumin Arterial Blood Glucose Coronavirus (PCR) 05/11/21 05/11/21 05/11/21 17:00 17:33 22:03 WBC MCV MCH MCHC RDW Lymph % (Auto) [place] % (Auto) Eos % (Auto) Lymph # (Auto) [place] # (Auto) Eos # (Auto) Baso # (Auto) Seg Neutrophils % Seg Neuts % (Manual) Lymphocytes % (Manual) Seg Neutrophils # Seg Neutrophils # Man Lymphocytes # (Manual) D-Dimer ABG pH POC ABG pCO2 POC ABG pO2 ABG pO2 ABG HCO3 ABG O2 Saturation ABG Base Excess ABG Oxyhemoglobin ABG Sodium ABG Chloride ABG Glucose Oxyhemoglobin Carboxyhemoglobin Sodium 135 L Potassium Chloride 97.3 L Carbon Dioxide BUN 21 H Creatinine 0.3 L Glucose 133 H POC Glucose 140 H 282 H Hemoglobin A1c Magnesium Ferritin AST ALT 60 H Alkaline Phosphatase Lactate Dehydrogenase C-Reactive Protein Total Protein Albumin 3.1 L Arterial Blood Glucose Coronavirus (PCR) 05/12/21 05/12/21 05/12/21 04:05 04:05 04:05 WBC MCV MCH MCHC RDW 18.4 H Lymph % (Auto) [place] % (Auto) Eos % (Auto) Lymph # (Auto) [place] # (Auto) Eos # (Auto) Baso # (Auto) Seg Neutrophils % Seg Neuts % (Manual) 94.0 H Lymphocytes % (Manual) 4.0 L Seg Neutrophils # Seg Neutrophils # Man Lymphocytes # (Manual) 0.3 L D-Dimer ABG pH POC ABG pCO2 POC ABG pO2 ABG pO2 ABG HCO3 ABG O2 Saturation ABG Base Excess ABG Oxyhemoglobin ABG Sodium ABG Chloride ABG Glucose Oxyhemoglobin Carboxyhemoglobin Sodium 136 L Potassium Chloride Carbon Dioxide BUN 18 H Creatinine 0.2 L Glucose 142 H POC Glucose Hemoglobin A1c Magnesium Ferritin 350.7 H AST ALT Alkaline Phosphatase Lactate Dehydrogenase 546 H C-Reactive Protein Total Protein 6.1 L Albumin 3.0 L Arterial Blood Glucose Coronavirus (PCR) 05/12/21 05/12/21 05/12/21 05:11 11:17 16:27 WBC MCV MCH MCHC RDW Lymph % (Auto) [place] % (Auto) Eos % (Auto) Lymph # (Auto) [place] # (Auto) Eos # (Auto) Baso # (Auto) Seg Neutrophils % Seg Neuts % (Manual) Lymphocytes % (Manual) Seg Neutrophils # Seg Neutrophils # Man Lymphocytes # (Manual) D-Dimer ABG pH POC ABG pCO2 POC ABG pO2 ABG pO2 ABG HCO3 ABG O2 Saturation ABG Base Excess ABG Oxyhemoglobin ABG Sodium ABG Chloride ABG Glucose Oxyhemoglobin Carboxyhemoglobin Sodium Potassium Chloride Carbon Dioxide BUN Creatinine Glucose POC Glucose 152 H 190 H 261 H Hemoglobin A1c Magnesium Ferritin AST ALT Alkaline Phosphatase Lactate Dehydrogenase C-Reactive Protein Total Protein Albumin Arterial Blood Glucose Coronavirus (PCR) 05/12/21 05/13/21 05/13/21 20:55 11:08 21:41 WBC MCV MCH MCHC RDW Lymph % (Auto) [place] % (Auto) Eos % (Auto) Lymph # (Auto) [place] # (Auto) Eos # (Auto) Baso # (Auto) Seg Neutrophils % Seg Neuts % (Manual) Lymphocytes % (Manual) Seg Neutrophils # Seg Neutrophils # Man Lymphocytes # (Manual) D-Dimer ABG pH POC ABG pCO2 POC ABG pO2 ABG pO2 ABG HCO3 ABG O2 Saturation ABG Base Excess ABG Oxyhemoglobin ABG Sodium ABG Chloride ABG Glucose Oxyhemoglobin Carboxyhemoglobin Sodium Potassium Chloride Carbon Dioxide BUN Creatinine Glucose POC Glucose 231 H 106 H 174 H Hemoglobin A1c Magnesium Ferritin AST ALT Alkaline Phosphatase Lactate Dehydrogenase C-Reactive Protein Total Protein Albumin Arterial Blood Glucose Coronavirus (PCR) 05/14/21 05/14/21 05/14/21 00:53 02:23 06:06 WBC MCV MCH MCHC RDW Lymph % (Auto) [place] % (Auto) Eos % (Auto) Lymph # (Auto) [place] # (Auto) Eos # (Auto) Baso # (Auto) Seg Neutrophils % Seg Neuts % (Manual) Lymphocytes % (Manual) Seg Neutrophils # Seg Neutrophils # Man Lymphocytes # (Manual) D-Dimer ABG pH POC ABG pCO2 POC ABG pO2 ABG pO2 130.3 H ABG HCO3 30.6 H ABG O2 Saturation ABG Base Excess 4.9 H ABG Oxyhemoglobin ABG Sodium ABG Chloride ABG Glucose Oxyhemoglobin Carboxyhemoglobin Sodium Potassium Chloride Carbon Dioxide BUN Creatinine Glucose POC Glucose 229 H 119 H Hemoglobin A1c Magnesium Ferritin AST ALT Alkaline Phosphatase Lactate Dehydrogenase C-Reactive Protein Total Protein Albumin Arterial Blood Glucose Coronavirus (PCR) 05/14/21 05/14/21 05/14/21 07:13 07:13 07:13 WBC MCV MCH MCHC RDW Lymph % (Auto) [place] % (Auto) Eos % (Auto) Lymph # (Auto) [place] # (Auto) Eos # (Auto) Baso # (Auto) Seg Neutrophils % Seg Neuts % (Manual) Lymphocytes % (Manual) Seg Neutrophils # Seg Neutrophils # Man Lymphocytes # (Manual) D-Dimer 712.80 H ABG pH POC ABG pCO2 POC ABG pO2 ABG pO2 ABG HCO3 ABG O2 Saturation ABG Base Excess ABG Oxyhemoglobin ABG Sodium ABG Chloride ABG Glucose Oxyhemoglobin Carboxyhemoglobin Sodium 133 L Potassium Chloride 95.5 L Carbon Dioxide 32 H BUN Creatinine 0.2 L Glucose 137 H POC Glucose Hemoglobin A1c Magnesium Ferritin 283.5 H AST ALT 63 H Alkaline Phosphatase Lactate Dehydrogenase 563 H C-Reactive Protein Total Protein 6.1 L Albumin 3.0 L Arterial Blood Glucose Coronavirus (PCR) 05/14/21 05/14/21 05/14/21 12:21 15:33 21:50 WBC MCV MCH MCHC RDW Lymph % (Auto) [place] % (Auto) Eos % (Auto) Lymph # (Auto) [place] # (Auto) Eos # (Auto) Baso # (Auto) Seg Neutrophils % Seg Neuts % (Manual) Lymphocytes % (Manual) Seg Neutrophils # Seg Neutrophils # Man Lymphocytes # (Manual) D-Dimer ABG pH POC ABG pCO2 POC ABG pO2 ABG pO2 ABG HCO3 ABG O2 Saturation ABG Base Excess ABG Oxyhemoglobin ABG Sodium ABG Chloride ABG Glucose Oxyhemoglobin Carboxyhemoglobin Sodium Potassium Chloride Carbon Dioxide BUN Creatinine Glucose POC Glucose 143 H 204 H 202 H Hemoglobin A1c Magnesium Ferritin AST ALT Alkaline Phosphatase Lactate Dehydrogenase C-Reactive Protein Total Protein Albumin Arterial Blood Glucose Coronavirus (PCR) 05/15/21 05/15/21 05/15/21 05:05 11:12 16:39 WBC MCV MCH MCHC RDW Lymph % (Auto) [place] % (Auto) Eos % (Auto) Lymph # (Auto) [place] # (Auto) Eos # (Auto) Baso # (Auto) Seg Neutrophils % Seg Neuts % (Manual) Lymphocytes % (Manual) Seg Neutrophils # Seg Neutrophils # Man Lymphocytes # (Manual) D-Dimer ABG pH POC ABG pCO2 POC ABG pO2 ABG pO2 ABG HCO3 ABG O2 Saturation ABG Base Excess ABG Oxyhemoglobin ABG Sodium ABG Chloride ABG Glucose Oxyhemoglobin Carboxyhemoglobin Sodium Potassium Chloride Carbon Dioxide BUN Creatinine Glucose POC Glucose 125 H 201 H 241 H Hemoglobin A1c Magnesium Ferritin AST ALT Alkaline Phosphatase Lactate Dehydrogenase C-Reactive Protein Total Protein Albumin Arterial Blood Glucose Coronavirus (PCR) 05/15/21 05/16/21 05/16/21 21:31 05:04 10:40 WBC MCV MCH MCHC RDW Lymph % (Auto) [place] % (Auto) Eos % (Auto) Lymph # (Auto) [place] # (Auto) Eos # (Auto) Baso # (Auto) Seg Neutrophils % Seg Neuts % (Manual) Lymphocytes % (Manual) Seg Neutrophils # Seg Neutrophils # Man Lymphocytes # (Manual) D-Dimer ABG pH POC ABG pCO2 POC ABG pO2 ABG pO2 ABG HCO3 ABG O2 Saturation ABG Base Excess ABG Oxyhemoglobin ABG Sodium ABG Chloride ABG Glucose Oxyhemoglobin Carboxyhemoglobin Sodium Potassium Chloride Carbon Dioxide BUN Creatinine Glucose POC Glucose 234 H 123 H 231 H Hemoglobin A1c Magnesium Ferritin AST ALT Alkaline Phosphatase Lactate Dehydrogenase C-Reactive Protein Total Protein Albumin Arterial Blood Glucose Coronavirus (PCR) 05/16/21 05/16/21 05/17/21 18:23 21:29 06:20 WBC MCV MCH MCHC RDW 18.8 H Lymph % (Auto) 10.2 L [place] % (Auto) Eos % (Auto) Lymph # (Auto) 0.8 L [place] # (Auto) Eos # (Auto) Baso # (Auto) Seg Neutrophils % 85.8 H Seg Neuts % (Manual) Lymphocytes % (Manual) Seg Neutrophils # Seg Neutrophils # Man Lymphocytes # (Manual) D-Dimer ABG pH POC ABG pCO2 POC ABG pO2 ABG pO2 ABG HCO3 ABG O2 Saturation ABG Base Excess ABG Oxyhemoglobin ABG Sodium ABG Chloride ABG Glucose Oxyhemoglobin Carboxyhemoglobin Sodium Potassium Chloride Carbon Dioxide BUN Creatinine Glucose POC Glucose 266 H 234 H Hemoglobin A1c Magnesium Ferritin AST ALT Alkaline Phosphatase Lactate Dehydrogenase C-Reactive Protein Total Protein Albumin Arterial Blood Glucose Coronavirus (PCR) 05/17/21 05/17/21 05/17/21 06:20 11:06 16:36 WBC MCV MCH MCHC RDW Lymph % (Auto) [place] % (Auto) Eos % (Auto) Lymph # (Auto) [place] # (Auto) Eos # (Auto) Baso # (Auto) Seg Neutrophils % Seg Neuts % (Manual) Lymphocytes % (Manual) Seg Neutrophils # Seg Neutrophils # Man Lymphocytes # (Manual) D-Dimer ABG pH POC ABG pCO2 POC ABG pO2 ABG pO2 ABG HCO3 ABG O2 Saturation ABG Base Excess ABG Oxyhemoglobin ABG Sodium ABG Chloride ABG Glucose Oxyhemoglobin Carboxyhemoglobin Sodium Potassium Chloride Carbon Dioxide 33 H BUN Creatinine 0.2 L Glucose 101 H POC Glucose 209 H 180 H Hemoglobin A1c Magnesium Ferritin AST ALT Alkaline Phosphatase Lactate Dehydrogenase C-Reactive Protein Total Protein Albumin Arterial Blood Glucose Coronavirus (PCR) 05/17/21 05/18/21 05/18/21 21:06 12:00 15:06 WBC MCV MCH MCHC RDW Lymph % (Auto) [place] % (Auto) Eos % (Auto) Lymph # (Auto) [place] # (Auto) Eos # (Auto) Baso # (Auto) Seg Neutrophils % Seg Neuts % (Manual) Lymphocytes % (Manual) Seg Neutrophils # Seg Neutrophils # Man Lymphocytes # (Manual) D-Dimer 874.02 H ABG pH POC ABG pCO2 POC ABG pO2 ABG pO2 ABG HCO3 ABG O2 Saturation ABG Base Excess ABG Oxyhemoglobin ABG Sodium ABG Chloride ABG Glucose Oxyhemoglobin Carboxyhemoglobin Sodium Potassium Chloride Carbon Dioxide BUN Creatinine Glucose POC Glucose 256 H 139 H Hemoglobin A1c Magnesium Ferritin AST ALT Alkaline Phosphatase Lactate Dehydrogenase C-Reactive Protein Total Protein Albumin Arterial Blood Glucose Coronavirus (PCR) 05/18/21 05/18/21 05/18/21 15:06 15:06 16:08 WBC MCV MCH MCHC RDW Lymph % (Auto) [place] % (Auto) Eos % (Auto) Lymph # (Auto) [place] # (Auto) Eos # (Auto) Baso # (Auto) Seg Neutrophils % Seg Neuts % (Manual) Lymphocytes % (Manual) Seg Neutrophils # Seg Neutrophils # Man Lymphocytes # (Manual) D-Dimer ABG pH POC ABG pCO2 POC ABG pO2 ABG pO2 ABG HCO3 ABG O2 Saturation ABG Base Excess ABG Oxyhemoglobin ABG Sodium ABG Chloride ABG Glucose Oxyhemoglobin Carboxyhemoglobin Sodium Potassium Chloride Carbon Dioxide BUN Creatinine Glucose POC Glucose 178 H Hemoglobin A1c Magnesium Ferritin 289.6 H AST ALT Alkaline Phosphatase Lactate Dehydrogenase 605 H C-Reactive Protein Total Protein Albumin Arterial Blood Glucose Coronavirus (PCR) 05/18/21 05/19/21 05/19/21 21:22 11:57 15:26 WBC MCV MCH MCHC RDW Lymph % (Auto) [place] % (Auto) Eos % (Auto) Lymph # (Auto) [place] # (Auto) Eos # (Auto) Baso # (Auto) Seg Neutrophils % Seg Neuts % (Manual) Lymphocytes % (Manual) Seg Neutrophils # Seg Neutrophils # Man Lymphocytes # (Manual) D-Dimer ABG pH POC ABG pCO2 POC ABG pO2 ABG pO2 ABG HCO3 ABG O2 Saturation ABG Base Excess ABG Oxyhemoglobin ABG Sodium ABG Chloride ABG Glucose Oxyhemoglobin Carboxyhemoglobin Sodium Potassium Chloride Carbon Dioxide BUN Creatinine Glucose POC Glucose 241 H 201 H 209 H Hemoglobin A1c Magnesium Ferritin AST ALT Alkaline Phosphatase Lactate Dehydrogenase C-Reactive Protein Total Protein Albumin Arterial Blood Glucose Coronavirus (PCR) 05/19/21 05/20/21 05/20/21 20:59 07:38 08:01 WBC MCV MCH MCHC RDW 19.7 H Lymph % (Auto) 8.3 L [place] % (Auto) Eos % (Auto) Lymph # (Auto) 0.8 L [place] # (Auto) Eos # (Auto) Baso # (Auto) Seg Neutrophils % 88.6 H Seg Neuts % (Manual) Lymphocytes % (Manual) Seg Neutrophils # 8.4 H Seg Neutrophils # Man Lymphocytes # (Manual) D-Dimer ABG pH POC ABG pCO2 POC ABG pO2 ABG pO2 ABG HCO3 ABG O2 Saturation ABG Base Excess ABG Oxyhemoglobin ABG Sodium ABG Chloride ABG Glucose Oxyhemoglobin Carboxyhemoglobin Sodium Potassium Chloride Carbon Dioxide BUN Creatinine Glucose POC Glucose 226 H 130 H Hemoglobin A1c Magnesium Ferritin AST ALT Alkaline Phosphatase Lactate Dehydrogenase C-Reactive Protein Total Protein Albumin Arterial Blood Glucose Coronavirus (PCR) 05/20/21 05/20/21 05/20/21 08:01 11:00 16:43 WBC MCV MCH MCHC RDW Lymph % (Auto) [place] % (Auto) Eos % (Auto) Lymph # (Auto) [place] # (Auto) Eos # (Auto) Baso # (Auto) Seg Neutrophils % Seg Neuts % (Manual) Lymphocytes % (Manual) Seg Neutrophils # Seg Neutrophils # Man Lymphocytes # (Manual) D-Dimer ABG pH POC ABG pCO2 POC ABG pO2 ABG pO2 ABG HCO3 ABG O2 Saturation ABG Base Excess ABG Oxyhemoglobin ABG Sodium ABG Chloride ABG Glucose Oxyhemoglobin Carboxyhemoglobin Sodium Potassium Chloride Carbon Dioxide BUN 18 H Creatinine 0.2 L Glucose 132 H POC Glucose 237 H 240 H Hemoglobin A1c Magnesium Ferritin AST ALT Alkaline Phosphatase Lactate Dehydrogenase C-Reactive Protein Total Protein Albumin Arterial Blood Glucose Coronavirus (PCR) 05/20/21 05/21/21 05/21/21 21:21 07:35 11:32 WBC MCV MCH MCHC RDW Lymph % (Auto) [place] % (Auto) Eos % (Auto) Lymph # (Auto) [place] # (Auto) Eos # (Auto) Baso # (Auto) Seg Neutrophils % Seg Neuts % (Manual) Lymphocytes % (Manual) Seg Neutrophils # Seg Neutrophils # Man Lymphocytes # (Manual) D-Dimer ABG pH POC ABG pCO2 POC ABG pO2 ABG pO2 ABG HCO3 ABG O2 Saturation ABG Base Excess ABG Oxyhemoglobin ABG Sodium ABG Chloride ABG Glucose Oxyhemoglobin Carboxyhemoglobin Sodium Potassium Chloride Carbon Dioxide BUN Creatinine Glucose POC Glucose 241 H 162 H 171 H Hemoglobin A1c Magnesium Ferritin AST ALT Alkaline Phosphatase Lactate Dehydrogenase C-Reactive Protein Total Protein Albumin Arterial Blood Glucose Coronavirus (PCR) 05/21/21 05/21/21 05/22/21 16:22 20:43 05:14 WBC MCV MCH MCHC RDW Lymph % (Auto) [place] % (Auto) Eos % (Auto) Lymph # (Auto) [place] # (Auto) Eos # (Auto) Baso # (Auto) Seg Neutrophils % Seg Neuts % (Manual) Lymphocytes % (Manual) Seg Neutrophils # Seg Neutrophils # Man Lymphocytes # (Manual) D-Dimer ABG pH POC ABG pCO2 POC ABG pO2 ABG pO2 ABG HCO3 ABG O2 Saturation ABG Base Excess ABG Oxyhemoglobin ABG Sodium ABG Chloride ABG Glucose Oxyhemoglobin Carboxyhemoglobin Sodium Potassium Chloride Carbon Dioxide BUN Creatinine Glucose POC Glucose 244 H 299 H 140 H Hemoglobin A1c Magnesium Ferritin AST ALT Alkaline Phosphatase Lactate Dehydrogenase C-Reactive Protein Total Protein Albumin Arterial Blood Glucose Coronavirus (PCR) 05/22/21 05/22/21 05/22/21 08:45 11:54 16:15 WBC MCV MCH MCHC RDW Lymph % (Auto) [place] % (Auto) Eos % (Auto) Lymph # (Auto) [place] # (Auto) Eos # (Auto) Baso # (Auto) Seg Neutrophils % Seg Neuts % (Manual) Lymphocytes % (Manual) Seg Neutrophils # Seg Neutrophils # Man Lymphocytes # (Manual) D-Dimer ABG pH POC ABG pCO2 POC ABG pO2 ABG pO2 ABG HCO3 ABG O2 Saturation ABG Base Excess ABG Oxyhemoglobin ABG Sodium ABG Chloride ABG Glucose Oxyhemoglobin Carboxyhemoglobin Sodium Potassium Chloride Carbon Dioxide BUN Creatinine Glucose POC Glucose 133 H 265 H 221 H Hemoglobin A1c Magnesium Ferritin AST ALT Alkaline Phosphatase Lactate Dehydrogenase C-Reactive Protein Total Protein Albumin Arterial Blood Glucose Coronavirus (PCR) 05/22/21 05/23/21 05/23/21 21:43 08:20 09:50 WBC MCV MCH MCHC RDW Lymph % (Auto) [place] % (Auto) Eos % (Auto) Lymph # (Auto) [place] # (Auto) Eos # (Auto) Baso # (Auto) Seg Neutrophils % Seg Neuts % (Manual) Lymphocytes % (Manual) Seg Neutrophils # Seg Neutrophils # Man Lymphocytes # (Manual) D-Dimer 910.38 H ABG pH POC ABG pCO2 POC ABG pO2 ABG pO2 ABG HCO3 ABG O2 Saturation ABG Base Excess ABG Oxyhemoglobin ABG Sodium ABG Chloride ABG Glucose Oxyhemoglobin Carboxyhemoglobin Sodium Potassium Chloride Carbon Dioxide BUN Creatinine Glucose POC Glucose 262 H 140 H Hemoglobin A1c Magnesium Ferritin AST ALT Alkaline Phosphatase Lactate Dehydrogenase C-Reactive Protein Total Protein Albumin Arterial Blood Glucose Coronavirus (PCR) 05/23/21 05/23/21 05/23/21 09:50 09:50 10:52 WBC MCV MCH MCHC RDW Lymph % (Auto) [place] % (Auto) Eos % (Auto) Lymph # (Auto) [place] # (Auto) Eos # (Auto) Baso # (Auto) Seg Neutrophils % Seg Neuts % (Manual) Lymphocytes % (Manual) Seg Neutrophils # Seg Neutrophils # Man Lymphocytes # (Manual) D-Dimer ABG pH POC ABG pCO2 POC ABG pO2 ABG pO2 ABG HCO3 ABG O2 Saturation ABG Base Excess ABG Oxyhemoglobin ABG Sodium ABG Chloride ABG Glucose Oxyhemoglobin Carboxyhemoglobin Sodium Potassium Chloride Carbon Dioxide BUN Creatinine Glucose POC Glucose 241 H Hemoglobin A1c Magnesium Ferritin 244.9 H AST ALT Alkaline Phosphatase Lactate Dehydrogenase 584 H C-Reactive Protein Total Protein Albumin Arterial Blood Glucose Coronavirus (PCR) 05/23/21 05/23/21 05/24/21 17:24 21:52 07:44 WBC MCV MCH MCHC RDW Lymph % (Auto) [place] % (Auto) Eos % (Auto) Lymph # (Auto) [place] # (Auto) Eos # (Auto) Baso # (Auto) Seg Neutrophils % Seg Neuts % (Manual) Lymphocytes % (Manual) Seg Neutrophils # Seg Neutrophils # Man Lymphocytes # (Manual) D-Dimer ABG pH POC ABG pCO2 POC ABG pO2 ABG pO2 ABG HCO3 ABG O2 Saturation ABG Base Excess ABG Oxyhemoglobin ABG Sodium ABG Chloride ABG Glucose Oxyhemoglobin Carboxyhemoglobin Sodium Potassium Chloride Carbon Dioxide BUN Creatinine Glucose POC Glucose 197 H 289 H 161 H Hemoglobin A1c Magnesium Ferritin AST ALT Alkaline Phosphatase Lactate Dehydrogenase C-Reactive Protein Total Protein Albumin Arterial Blood Glucose Coronavirus (PCR) 05/24/21 05/24/21 05/24/21 11:17 17:51 21:26 WBC MCV MCH MCHC RDW Lymph % (Auto) [place] % (Auto) Eos % (Auto) Lymph # (Auto) [place] # (Auto) Eos # (Auto) Baso # (Auto) Seg Neutrophils % Seg Neuts % (Manual) Lymphocytes % (Manual) Seg Neutrophils # Seg Neutrophils # Man Lymphocytes # (Manual) D-Dimer ABG pH POC ABG pCO2 POC ABG pO2 ABG pO2 ABG HCO3 ABG O2 Saturation ABG Base Excess ABG Oxyhemoglobin ABG Sodium ABG Chloride ABG Glucose Oxyhemoglobin Carboxyhemoglobin Sodium Potassium Chloride Carbon Dioxide BUN Creatinine Glucose POC Glucose 308 H 175 H 198 H Hemoglobin A1c Magnesium Ferritin AST ALT Alkaline Phosphatase Lactate Dehydrogenase C-Reactive Protein Total Protein Albumin Arterial Blood Glucose Coronavirus (PCR) 05/25/21 05/25/21 05/25/21 08:14 11:13 17:13 WBC MCV MCH MCHC RDW Lymph % (Auto) [place] % (Auto) Eos % (Auto) Lymph # (Auto) [place] # (Auto) Eos # (Auto) Baso # (Auto) Seg Neutrophils % Seg Neuts % (Manual) Lymphocytes % (Manual) Seg Neutrophils # Seg Neutrophils # Man Lymphocytes # (Manual) D-Dimer ABG pH POC ABG pCO2 POC ABG pO2 ABG pO2 ABG HCO3 ABG O2 Saturation ABG Base Excess ABG Oxyhemoglobin ABG Sodium ABG Chloride ABG Glucose Oxyhemoglobin Carboxyhemoglobin Sodium Potassium Chloride Carbon Dioxide BUN Creatinine Glucose POC Glucose 203 H 339 H 235 H Hemoglobin A1c Magnesium Ferritin AST ALT Alkaline Phosphatase Lactate Dehydrogenase C-Reactive Protein Total Protein Albumin Arterial Blood Glucose Coronavirus (PCR) 05/25/21 05/26/21 05/26/21 21:03 07:33 11:19 WBC MCV MCH MCHC RDW Lymph % (Auto) [place] % (Auto) Eos % (Auto) Lymph # (Auto) [place] # (Auto) Eos # (Auto) Baso # (Auto) Seg Neutrophils % Seg Neuts % (Manual) Lymphocytes % (Manual) Seg Neutrophils # Seg Neutrophils # Man Lymphocytes # (Manual) D-Dimer ABG pH POC ABG pCO2 POC ABG pO2 ABG pO2 ABG HCO3 ABG O2 Saturation ABG Base Excess ABG Oxyhemoglobin ABG Sodium ABG Chloride ABG Glucose Oxyhemoglobin Carboxyhemoglobin Sodium Potassium Chloride Carbon Dioxide BUN Creatinine Glucose POC Glucose 263 H 156 H 288 H Hemoglobin A1c Magnesium Ferritin AST ALT Alkaline Phosphatase Lactate Dehydrogenase C-Reactive Protein Total Protein Albumin Arterial Blood Glucose Coronavirus (PCR) 05/26/21 05/26/21 05/27/21 16:26 20:55 07:38 WBC MCV MCH MCHC RDW Lymph % (Auto) [place] % (Auto) Eos % (Auto) Lymph # (Auto) [place] # (Auto) Eos # (Auto) Baso # (Auto) Seg Neutrophils % Seg Neuts % (Manual) Lymphocytes % (Manual) Seg Neutrophils # Seg Neutrophils # Man Lymphocytes # (Manual) D-Dimer ABG pH POC ABG pCO2 POC ABG pO2 ABG pO2 ABG HCO3 ABG O2 Saturation ABG Base Excess ABG Oxyhemoglobin ABG Sodium ABG Chloride ABG Glucose Oxyhemoglobin Carboxyhemoglobin Sodium Potassium Chloride Carbon Dioxide BUN Creatinine Glucose POC Glucose 286 H 293 H 115 H Hemoglobin A1c Magnesium Ferritin AST ALT Alkaline Phosphatase Lactate Dehydrogenase C-Reactive Protein Total Protein Albumin Arterial Blood Glucose Coronavirus (PCR) 05/27/21 05/27/21 05/27/21 11:46 15:58 21:02 WBC MCV MCH MCHC RDW Lymph % (Auto) [place] % (Auto) Eos % (Auto) Lymph # (Auto) [place] # (Auto) Eos # (Auto) Baso # (Auto) Seg Neutrophils % Seg Neuts % (Manual) Lymphocytes % (Manual) Seg Neutrophils # Seg Neutrophils # Man Lymphocytes # (Manual) D-Dimer ABG pH POC ABG pCO2 POC ABG pO2 ABG pO2 ABG HCO3 ABG O2 Saturation ABG Base Excess ABG Oxyhemoglobin ABG Sodium ABG Chloride ABG Glucose Oxyhemoglobin Carboxyhemoglobin Sodium Potassium Chloride Carbon Dioxide BUN Creatinine Glucose POC Glucose 260 H 318 H 246 H Hemoglobin A1c Magnesium Ferritin AST ALT Alkaline Phosphatase Lactate Dehydrogenase C-Reactive Protein Total Protein Albumin Arterial Blood Glucose Coronavirus (PCR) 05/28/21 05/28/21 05/28/21 07:34 11:31 16:36 WBC MCV MCH MCHC RDW Lymph % (Auto) [place] % (Auto) Eos % (Auto) Lymph # (Auto) [place] # (Auto) Eos # (Auto) Baso # (Auto) Seg Neutrophils % Seg Neuts % (Manual) Lymphocytes % (Manual) Seg Neutrophils # Seg Neutrophils # Man Lymphocytes # (Manual) D-Dimer ABG pH POC ABG pCO2 POC ABG pO2 ABG pO2 ABG HCO3 ABG O2 Saturation ABG Base Excess ABG Oxyhemoglobin ABG Sodium ABG Chloride ABG Glucose Oxyhemoglobin Carboxyhemoglobin Sodium Potassium Chloride Carbon Dioxide BUN Creatinine Glucose POC Glucose 185 H 297 H 183 H Hemoglobin A1c Magnesium Ferritin AST ALT Alkaline Phosphatase Lactate Dehydrogenase C-Reactive Protein Total Protein Albumin Arterial Blood Glucose Coronavirus (PCR) 05/28/21 05/29/21 05/29/21 21:19 07:34 11:19 WBC MCV MCH MCHC RDW Lymph % (Auto) [place] % (Auto) Eos % (Auto) Lymph # (Auto) [place] # (Auto) Eos # (Auto) Baso # (Auto) Seg Neutrophils % Seg Neuts % (Manual) Lymphocytes % (Manual) Seg Neutrophils # Seg Neutrophils # Man Lymphocytes # (Manual) D-Dimer ABG pH POC ABG pCO2 POC ABG pO2 ABG pO2 ABG HCO3 ABG O2 Saturation ABG Base Excess ABG Oxyhemoglobin ABG Sodium ABG Chloride ABG Glucose Oxyhemoglobin Carboxyhemoglobin Sodium Potassium Chloride Carbon Dioxide BUN Creatinine Glucose POC Glucose 274 H 139 H 293 H Hemoglobin A1c Magnesium Ferritin AST ALT Alkaline Phosphatase Lactate Dehydrogenase C-Reactive Protein Total Protein Albumin Arterial Blood Glucose Coronavirus (PCR) 05/29/21 05/29/21 05/30/21 16:36 22:44 05:55 WBC MCV MCH MCHC RDW 21.3 H Lymph % (Auto) 8.0 L [place] % (Auto) Eos % (Auto) Lymph # (Auto) 0.6 L [place] # (Auto) Eos # (Auto) Baso # (Auto) Seg Neutrophils % 88.6 H Seg Neuts % (Manual) Lymphocytes % (Manual) Seg Neutrophils # Seg Neutrophils # Man Lymphocytes # (Manual) D-Dimer ABG pH POC ABG pCO2 POC ABG pO2 ABG pO2 ABG HCO3 ABG O2 Saturation ABG Base Excess ABG Oxyhemoglobin ABG Sodium ABG Chloride ABG Glucose Oxyhemoglobin Carboxyhemoglobin Sodium Potassium Chloride Carbon Dioxide BUN Creatinine Glucose POC Glucose 299 H 160 H Hemoglobin A1c Magnesium Ferritin AST ALT Alkaline Phosphatase Lactate Dehydrogenase C-Reactive Protein Total Protein Albumin Arterial Blood Glucose Coronavirus (PCR) 05/30/21 05/30/21 05/30/21 05:55 08:04 11:13 WBC MCV MCH MCHC RDW Lymph % (Auto) [place] % (Auto) Eos % (Auto) Lymph # (Auto) [place] # (Auto) Eos # (Auto) Baso # (Auto) Seg Neutrophils % Seg Neuts % (Manual) Lymphocytes % (Manual) Seg Neutrophils # Seg Neutrophils # Man Lymphocytes # (Manual) D-Dimer ABG pH POC ABG pCO2 POC ABG pO2 ABG pO2 ABG HCO3 ABG O2 Saturation ABG Base Excess ABG Oxyhemoglobin ABG Sodium ABG Chloride ABG Glucose Oxyhemoglobin Carboxyhemoglobin Sodium Potassium Chloride Carbon Dioxide BUN 19 H Creatinine 0.2 L Glucose 209 H POC Glucose 157 H 275 H Hemoglobin A1c Magnesium Ferritin AST ALT Alkaline Phosphatase Lactate Dehydrogenase C-Reactive Protein Total Protein Albumin Arterial Blood Glucose Coronavirus (PCR) 05/30/21 05/30/21 05/31/21 17:08 22:12 07:36 WBC MCV MCH MCHC RDW Lymph % (Auto) [place] % (Auto) Eos % (Auto) Lymph # (Auto) [place] # (Auto) Eos # (Auto) Baso # (Auto) Seg Neutrophils % Seg Neuts % (Manual) Lymphocytes % (Manual) Seg Neutrophils # Seg Neutrophils # Man Lymphocytes # (Manual) D-Dimer ABG pH POC ABG pCO2 POC ABG pO2 ABG pO2 ABG HCO3 ABG O2 Saturation ABG Base Excess ABG Oxyhemoglobin ABG Sodium ABG Chloride ABG Glucose Oxyhemoglobin Carboxyhemoglobin Sodium Potassium Chloride Carbon Dioxide BUN Creatinine Glucose POC Glucose 154 H 275 H 138 H Hemoglobin A1c Magnesium Ferritin AST ALT Alkaline Phosphatase Lactate Dehydrogenase C-Reactive Protein Total Protein Albumin Arterial Blood Glucose Coronavirus (PCR) 05/31/21 05/31/21 05/31/21 11:17 16:55 21:25 WBC MCV MCH MCHC RDW Lymph % (Auto) [place] % (Auto) Eos % (Auto) Lymph # (Auto) [place] # (Auto) Eos # (Auto) Baso # (Auto) Seg Neutrophils % Seg Neuts % (Manual) Lymphocytes % (Manual) Seg Neutrophils # Seg Neutrophils # Man Lymphocytes # (Manual) D-Dimer ABG pH POC ABG pCO2 POC ABG pO2 ABG pO2 ABG HCO3 ABG O2 Saturation ABG Base Excess ABG Oxyhemoglobin ABG Sodium ABG Chloride ABG Glucose Oxyhemoglobin Carboxyhemoglobin Sodium Potassium Chloride Carbon Dioxide BUN Creatinine Glucose POC Glucose 258 H 215 H 318 H Hemoglobin A1c Magnesium Ferritin AST ALT Alkaline Phosphatase Lactate Dehydrogenase C-Reactive Protein Total Protein Albumin Arterial Blood Glucose Coronavirus (PCR) 06/01/21 06/01/21 06/01/21 07:23 11:38 16:52 WBC MCV MCH MCHC RDW Lymph % (Auto) [place] % (Auto) Eos % (Auto) Lymph # (Auto) [place] # (Auto) Eos # (Auto) Baso # (Auto) Seg Neutrophils % Seg Neuts % (Manual) Lymphocytes % (Manual) Seg Neutrophils # Seg Neutrophils # Man Lymphocytes # (Manual) D-Dimer ABG pH POC ABG pCO2 POC ABG pO2 ABG pO2 ABG HCO3 ABG O2 Saturation ABG Base Excess ABG Oxyhemoglobin ABG Sodium ABG Chloride ABG Glucose Oxyhemoglobin Carboxyhemoglobin Sodium Potassium Chloride Carbon Dioxide BUN Creatinine Glucose POC Glucose 157 H 259 H 150 H Hemoglobin A1c Magnesium Ferritin AST ALT Alkaline Phosphatase Lactate Dehydrogenase C-Reactive Protein Total Protein Albumin Arterial Blood Glucose Coronavirus (PCR) 06/01/21 06/02/21 06/02/21 23:16 05:34 05:34 WBC MCV MCH MCHC RDW 21.3 H Lymph % (Auto) 9.6 L [place] % (Auto) Eos % (Auto) Lymph # (Auto) 0.6 L [place] # (Auto) Eos # (Auto) Baso # (Auto) Seg Neutrophils % 86.2 H Seg Neuts % (Manual) Lymphocytes % (Manual) Seg Neutrophils # Seg Neutrophils # Man Lymphocytes # (Manual) D-Dimer ABG pH POC ABG pCO2 POC ABG pO2 ABG pO2 ABG HCO3 ABG O2 Saturation ABG Base Excess ABG Oxyhemoglobin ABG Sodium ABG Chloride ABG Glucose Oxyhemoglobin Carboxyhemoglobin Sodium 136 L Potassium Chloride Carbon Dioxide BUN Creatinine 0.2 L Glucose 186 H POC Glucose 247 H Hemoglobin A1c Magnesium Ferritin AST ALT 69 H Alkaline Phosphatase Lactate Dehydrogenase C-Reactive Protein Total Protein 6.1 L Albumin 3.2 L Arterial Blood Glucose Coronavirus (PCR) 06/02/21 06/02/21 06/02/21 11:25 18:23 21:32 WBC MCV MCH MCHC RDW Lymph % (Auto) [place] % (Auto) Eos % (Auto) Lymph # (Auto) [place] # (Auto) Eos # (Auto) Baso # (Auto) Seg Neutrophils % Seg Neuts % (Manual) Lymphocytes % (Manual) Seg Neutrophils # Seg Neutrophils # Man Lymphocytes # (Manual) D-Dimer ABG pH POC ABG pCO2 POC ABG pO2 ABG pO2 ABG HCO3 ABG O2 Saturation ABG Base Excess ABG Oxyhemoglobin ABG Sodium ABG Chloride ABG Glucose Oxyhemoglobin Carboxyhemoglobin Sodium Potassium Chloride Carbon Dioxide BUN Creatinine Glucose POC Glucose 157 H 299 H 246 H Hemoglobin A1c Magnesium Ferritin AST ALT Alkaline Phosphatase Lactate Dehydrogenase C-Reactive Protein Total Protein Albumin Arterial Blood Glucose Coronavirus (PCR) 06/03/21 06/03/21 06/03/21 08:12 12:21 17:31 WBC MCV MCH MCHC RDW Lymph % (Auto) [place] % (Auto) Eos % (Auto) Lymph # (Auto) [place] # (Auto) Eos # (Auto) Baso # (Auto) Seg Neutrophils % Seg Neuts % (Manual) Lymphocytes % (Manual) Seg Neutrophils # Seg Neutrophils # Man Lymphocytes # (Manual) D-Dimer ABG pH POC ABG pCO2 POC ABG pO2 ABG pO2 ABG HCO3 ABG O2 Saturation ABG Base Excess ABG Oxyhemoglobin ABG Sodium ABG Chloride ABG Glucose Oxyhemoglobin Carboxyhemoglobin Sodium Potassium Chloride Carbon Dioxide BUN Creatinine Glucose POC Glucose 153 H 302 H 252 H Hemoglobin A1c Magnesium Ferritin AST ALT Alkaline Phosphatase Lactate Dehydrogenase C-Reactive Protein Total Protein Albumin Arterial Blood Glucose Coronavirus (PCR) 06/03/21 06/04/21 06/04/21 22:08 11:12 16:01 WBC MCV MCH MCHC RDW Lymph % (Auto) [place] % (Auto) Eos % (Auto) Lymph # (Auto) [place] # (Auto) Eos # (Auto) Baso # (Auto) Seg Neutrophils % Seg Neuts % (Manual) Lymphocytes % (Manual) Seg Neutrophils # Seg Neutrophils # Man Lymphocytes # (Manual) D-Dimer ABG pH POC ABG pCO2 POC ABG pO2 ABG pO2 ABG HCO3 ABG O2 Saturation ABG Base Excess ABG Oxyhemoglobin ABG Sodium ABG Chloride ABG Glucose Oxyhemoglobin Carboxyhemoglobin Sodium Potassium Chloride Carbon Dioxide BUN Creatinine Glucose POC Glucose 224 H 259 H 238 H Hemoglobin A1c Magnesium Ferritin AST ALT Alkaline Phosphatase Lactate Dehydrogenase C-Reactive Protein Total Protein Albumin Arterial Blood Glucose Coronavirus (PCR) 06/04/21 06/05/21 06/05/21 21:26 05:26 05:26 WBC MCV MCH MCHC RDW Lymph % (Auto) [place] % (Auto) Eos % (Auto) Lymph # (Auto) [place] # (Auto) Eos # (Auto) Baso # (Auto) Seg Neutrophils % Seg Neuts % (Manual) Lymphocytes % (Manual) Seg Neutrophils # Seg Neutrophils # Man Lymphocytes # (Manual) D-Dimer 488.49 H ABG pH POC ABG pCO2 POC ABG pO2 ABG pO2 ABG HCO3 ABG O2 Saturation ABG Base Excess ABG Oxyhemoglobin ABG Sodium ABG Chloride ABG Glucose Oxyhemoglobin Carboxyhemoglobin Sodium Potassium Chloride Carbon Dioxide BUN Creatinine 0.2 L Glucose 198 H POC Glucose 257 H Hemoglobin A1c Magnesium Ferritin AST ALT Alkaline Phosphatase Lactate Dehydrogenase 475 H C-Reactive Protein Total Protein Albumin Arterial Blood Glucose Coronavirus (PCR) 06/05/21 06/05/21 06/05/21 07:20 08:30 11:00 WBC MCV MCH MCHC RDW Lymph % (Auto) [place] % (Auto) Eos % (Auto) Lymph # (Auto) [place] # (Auto) Eos # (Auto) Baso # (Auto) Seg Neutrophils % Seg Neuts % (Manual) Lymphocytes % (Manual) Seg Neutrophils # Seg Neutrophils # Man Lymphocytes # (Manual) D-Dimer ABG pH POC ABG pCO2 POC ABG pO2 ABG pO2 ABG HCO3 ABG O2 Saturation ABG Base Excess ABG Oxyhemoglobin ABG Sodium ABG Chloride ABG Glucose Oxyhemoglobin Carboxyhemoglobin Sodium Potassium Chloride Carbon Dioxide BUN Creatinine Glucose POC Glucose 146 H 246 H Hemoglobin A1c Magnesium Ferritin AST ALT Alkaline Phosphatase Lactate Dehydrogenase C-Reactive Protein Total Protein Albumin Arterial Blood Glucose Coronavirus (PCR) Positive A 06/05/21 06/05/21 06/06/21 16:50 22:30 07:57 WBC MCV MCH MCHC RDW Lymph % (Auto) [place] % (Auto) Eos % (Auto) Lymph # (Auto) [place] # (Auto) Eos # (Auto) Baso # (Auto) Seg Neutrophils % Seg Neuts % (Manual) Lymphocytes % (Manual) Seg Neutrophils # Seg Neutrophils # Man Lymphocytes # (Manual) D-Dimer ABG pH POC ABG pCO2 POC ABG pO2 ABG pO2 ABG HCO3 ABG O2 Saturation ABG Base Excess ABG Oxyhemoglobin ABG Sodium ABG Chloride ABG Glucose Oxyhemoglobin Carboxyhemoglobin Sodium Potassium Chloride Carbon Dioxide BUN Creatinine Glucose POC Glucose 240 H 174 H 120 H Hemoglobin A1c Magnesium Ferritin AST ALT Alkaline Phosphatase Lactate Dehydrogenase C-Reactive Protein Total Protein Albumin Arterial Blood Glucose Coronavirus (PCR) 06/06/21 06/06/21 06/06/21 11:14 16:50 21:11 WBC MCV MCH MCHC RDW Lymph % (Auto) [place] % (Auto) Eos % (Auto) Lymph # (Auto) [place] # (Auto) Eos # (Auto) Baso # (Auto) Seg Neutrophils % Seg Neuts % (Manual) Lymphocytes % (Manual) Seg Neutrophils # Seg Neutrophils # Man Lymphocytes # (Manual) D-Dimer ABG pH POC ABG pCO2 POC ABG pO2 ABG pO2 ABG HCO3 ABG O2 Saturation ABG Base Excess ABG Oxyhemoglobin ABG Sodium ABG Chloride ABG Glucose Oxyhemoglobin Carboxyhemoglobin Sodium Potassium Chloride Carbon Dioxide BUN Creatinine Glucose POC Glucose 267 H 218 H 124 H Hemoglobin A1c Magnesium Ferritin AST ALT Alkaline Phosphatase Lactate Dehydrogenase C-Reactive Protein Total Protein Albumin Arterial Blood Glucose Coronavirus (PCR) 06/07/21 06/07/21 06/08/21 11:58 15:59 07:59 WBC MCV MCH MCHC RDW Lymph % (Auto) [place] % (Auto) Eos % (Auto) Lymph # (Auto) [place] # (Auto) Eos # (Auto) Baso # (Auto) Seg Neutrophils % Seg Neuts % (Manual) Lymphocytes % (Manual) Seg Neutrophils # Seg Neutrophils # Man Lymphocytes # (Manual) D-Dimer ABG pH POC ABG pCO2 POC ABG pO2 ABG pO2 ABG HCO3 ABG O2 Saturation ABG Base Excess ABG Oxyhemoglobin ABG Sodium ABG Chloride ABG Glucose Oxyhemoglobin Carboxyhemoglobin Sodium Potassium Chloride Carbon Dioxide BUN Creatinine Glucose POC Glucose 219 H 208 H 192 H Hemoglobin A1c Magnesium Ferritin AST ALT Alkaline Phosphatase Lactate Dehydrogenase C-Reactive Protein Total Protein Albumin Arterial Blood Glucose Coronavirus (PCR) 06/08/21 06/08/21 06/09/21 11:26 23:28 07:33 WBC MCV MCH MCHC RDW Lymph % (Auto) [place] % (Auto) Eos % (Auto) Lymph # (Auto) [place] # (Auto) Eos # (Auto) Baso # (Auto) Seg Neutrophils % Seg Neuts % (Manual) Lymphocytes % (Manual) Seg Neutrophils # Seg Neutrophils # Man Lymphocytes # (Manual) D-Dimer ABG pH POC ABG pCO2 POC ABG pO2 ABG pO2 ABG HCO3 ABG O2 Saturation ABG Base Excess ABG Oxyhemoglobin ABG Sodium ABG Chloride ABG Glucose Oxyhemoglobin Carboxyhemoglobin Sodium Potassium Chloride Carbon Dioxide BUN Creatinine Glucose POC Glucose 307 H 138 H 145 H Hemoglobin A1c Magnesium Ferritin AST ALT Alkaline Phosphatase Lactate Dehydrogenase C-Reactive Protein Total Protein Albumin Arterial Blood Glucose Coronavirus (PCR) 06/09/21 06/09/21 06/09/21 11:01 15:47 21:43 WBC MCV MCH MCHC RDW Lymph % (Auto) [place] % (Auto) Eos % (Auto) Lymph # (Auto) [place] # (Auto) Eos # (Auto) Baso # (Auto) Seg Neutrophils % Seg Neuts % (Manual) Lymphocytes % (Manual) Seg Neutrophils # Seg Neutrophils # Man Lymphocytes # (Manual) D-Dimer ABG pH POC ABG pCO2 POC ABG pO2 ABG pO2 ABG HCO3 ABG O2 Saturation ABG Base Excess ABG Oxyhemoglobin ABG Sodium ABG Chloride ABG Glucose Oxyhemoglobin Carboxyhemoglobin Sodium Potassium Chloride Carbon Dioxide BUN Creatinine Glucose POC Glucose 266 H 305 H 223 H Hemoglobin A1c Magnesium Ferritin AST ALT Alkaline Phosphatase Lactate Dehydrogenase C-Reactive Protein Total Protein Albumin Arterial Blood Glucose Coronavirus (PCR) 06/10/21 06/10/21 06/10/21 08:27 12:10 17:45 WBC MCV MCH MCHC RDW Lymph % (Auto) [place] % (Auto) Eos % (Auto) Lymph # (Auto) [place] # (Auto) Eos # (Auto) Baso # (Auto) Seg Neutrophils % Seg Neuts % (Manual) Lymphocytes % (Manual) Seg Neutrophils # Seg Neutrophils # Man Lymphocytes # (Manual) D-Dimer ABG pH POC ABG pCO2 POC ABG pO2 ABG pO2 ABG HCO3 ABG O2 Saturation ABG Base Excess ABG Oxyhemoglobin ABG Sodium ABG Chloride ABG Glucose Oxyhemoglobin Carboxyhemoglobin Sodium Potassium Chloride Carbon Dioxide BUN Creatinine Glucose POC Glucose 174 H 306 H 210 H Hemoglobin A1c Magnesium Ferritin AST ALT Alkaline Phosphatase Lactate Dehydrogenase C-Reactive Protein Total Protein Albumin Arterial Blood Glucose Coronavirus (PCR) 06/10/21 06/11/21 06/11/21 21:45 09:38 09:38 WBC MCV MCH MCHC RDW 20.9 H Lymph % (Auto) [place] % (Auto) Eos % (Auto) Lymph # (Auto) [place] # (Auto) Eos # (Auto) Baso # (Auto) Seg Neutrophils % Seg Neuts % (Manual) Lymphocytes % (Manual) Seg Neutrophils # Seg Neutrophils # Man Lymphocytes # (Manual) D-Dimer ABG pH POC ABG pCO2 POC ABG pO2 ABG pO2 ABG HCO3 ABG O2 Saturation ABG Base Excess ABG Oxyhemoglobin ABG Sodium ABG Chloride ABG Glucose Oxyhemoglobin Carboxyhemoglobin Sodium 135 L Potassium Chloride 90.8 L Carbon Dioxide 36 H BUN 29 H Creatinine 0.2 L Glucose 258 H POC Glucose 262 H Hemoglobin A1c Magnesium Ferritin AST ALT Alkaline Phosphatase Lactate Dehydrogenase C-Reactive Protein Total Protein Albumin Arterial Blood Glucose Coronavirus (PCR) 06/11/21 06/11/21 06/11/21 11:20 15:49 22:57 WBC MCV MCH MCHC RDW Lymph % (Auto) [place] % (Auto) Eos % (Auto) Lymph # (Auto) [place] # (Auto) Eos # (Auto) Baso # (Auto) Seg Neutrophils % Seg Neuts % (Manual) Lymphocytes % (Manual) Seg Neutrophils # Seg Neutrophils # Man Lymphocytes # (Manual) D-Dimer ABG pH POC ABG pCO2 POC ABG pO2 ABG pO2 ABG HCO3 ABG O2 Saturation ABG Base Excess ABG Oxyhemoglobin ABG Sodium ABG Chloride ABG Glucose Oxyhemoglobin Carboxyhemoglobin Sodium Potassium Chloride Carbon Dioxide BUN Creatinine Glucose POC Glucose 269 H 206 H 211 H Hemoglobin A1c Magnesium Ferritin AST ALT Alkaline Phosphatase Lactate Dehydrogenase C-Reactive Protein Total Protein Albumin Arterial Blood Glucose Coronavirus (PCR) 06/12/21 06/12/21 06/12/21 08:07 11:24 18:08 WBC MCV MCH MCHC RDW Lymph % (Auto) [place] % (Auto) Eos % (Auto) Lymph # (Auto) [place] # (Auto) Eos # (Auto) Baso # (Auto) Seg Neutrophils % Seg Neuts % (Manual) Lymphocytes % (Manual) Seg Neutrophils # Seg Neutrophils # Man Lymphocytes # (Manual) D-Dimer ABG pH POC ABG pCO2 POC ABG pO2 ABG pO2 ABG HCO3 ABG O2 Saturation ABG Base Excess ABG Oxyhemoglobin ABG Sodium ABG Chloride ABG Glucose Oxyhemoglobin Carboxyhemoglobin Sodium Potassium Chloride Carbon Dioxide BUN Creatinine Glucose POC Glucose 149 H 270 H 166 H Hemoglobin A1c Magnesium Ferritin AST ALT Alkaline Phosphatase Lactate Dehydrogenase C-Reactive Protein Total Protein Albumin Arterial Blood Glucose Coronavirus (PCR) 06/12/21 06/13/21 06/13/21 20:22 07:50 11:18 WBC MCV MCH MCHC RDW Lymph % (Auto) [place] % (Auto) Eos % (Auto) Lymph # (Auto) [place] # (Auto) Eos # (Auto) Baso # (Auto) Seg Neutrophils % Seg Neuts % (Manual) Lymphocytes % (Manual) Seg Neutrophils # Seg Neutrophils # Man Lymphocytes # (Manual) D-Dimer ABG pH POC ABG pCO2 POC ABG pO2 ABG pO2 ABG HCO3 ABG O2 Saturation ABG Base Excess ABG Oxyhemoglobin ABG Sodium ABG Chloride ABG Glucose Oxyhemoglobin Carboxyhemoglobin Sodium Potassium Chloride Carbon Dioxide BUN Creatinine Glucose POC Glucose 155 H 163 H 293 H Hemoglobin A1c Magnesium Ferritin AST ALT Alkaline Phosphatase Lactate Dehydrogenase C-Reactive Protein Total Protein Albumin Arterial Blood Glucose Coronavirus (PCR) 06/13/21 06/13/21 06/14/21 16:41 21:00 07:41 WBC MCV MCH MCHC RDW Lymph % (Auto) [place] % (Auto) Eos % (Auto) Lymph # (Auto) [place] # (Auto) Eos # (Auto) Baso # (Auto) Seg Neutrophils % Seg Neuts % (Manual) Lymphocytes % (Manual) Seg Neutrophils # Seg Neutrophils # Man Lymphocytes # (Manual) D-Dimer ABG pH POC ABG pCO2 POC ABG pO2 ABG pO2 ABG HCO3 ABG O2 Saturation ABG Base Excess ABG Oxyhemoglobin ABG Sodium ABG Chloride ABG Glucose Oxyhemoglobin Carboxyhemoglobin Sodium Potassium Chloride Carbon Dioxide BUN Creatinine Glucose POC Glucose 232 H 183 H 52 L Hemoglobin A1c Magnesium Ferritin AST ALT Alkaline Phosphatase Lactate Dehydrogenase C-Reactive Protein Total Protein Albumin Arterial Blood Glucose Coronavirus (PCR) 06/14/21 06/14/21 06/14/21 11:44 17:44 21:44 WBC MCV MCH MCHC RDW Lymph % (Auto) [place] % (Auto) Eos % (Auto) Lymph # (Auto) [place] # (Auto) Eos # (Auto) Baso # (Auto) Seg Neutrophils % Seg Neuts % (Manual) Lymphocytes % (Manual) Seg Neutrophils # Seg Neutrophils # Man Lymphocytes # (Manual) D-Dimer ABG pH POC ABG pCO2 POC ABG pO2 ABG pO2 ABG HCO3 ABG O2 Saturation ABG Base Excess ABG Oxyhemoglobin ABG Sodium ABG Chloride ABG Glucose Oxyhemoglobin Carboxyhemoglobin Sodium Potassium Chloride Carbon Dioxide BUN Creatinine Glucose POC Glucose 205 H 293 H 288 H Hemoglobin A1c Magnesium Ferritin AST ALT Alkaline Phosphatase Lactate Dehydrogenase C-Reactive Protein Total Protein Albumin Arterial Blood Glucose Coronavirus (PCR) 06/15/21 06/15/21 06/15/21 08:00 08:00 11:40 WBC MCV MCH 33 H MCHC 35 H RDW 20.3 H Lymph % (Auto) [place] % (Auto) Eos % (Auto) Lymph # (Auto) [place] # (Auto) Eos # (Auto) Baso # (Auto) Seg Neutrophils % Seg Neuts % (Manual) Lymphocytes % (Manual) Seg Neutrophils # Seg Neutrophils # Man Lymphocytes # (Manual) D-Dimer ABG pH POC ABG pCO2 POC ABG pO2 ABG pO2 ABG HCO3 ABG O2 Saturation ABG Base Excess ABG Oxyhemoglobin ABG Sodium ABG Chloride ABG Glucose Oxyhemoglobin Carboxyhemoglobin Sodium Potassium 3.2 L Chloride 95.3 L Carbon Dioxide 32 H BUN 23 H Creatinine 0.2 L Glucose 103 H POC Glucose 204 H Hemoglobin A1c Magnesium Ferritin AST ALT Alkaline Phosphatase Lactate Dehydrogenase C-Reactive Protein Total Protein Albumin Arterial Blood Glucose Coronavirus (PCR) 06/15/21 06/15/21 06/16/21 16:17 22:00 11:43 WBC MCV MCH MCHC RDW Lymph % (Auto) [place] % (Auto) Eos % (Auto) Lymph # (Auto) [place] # (Auto) Eos # (Auto) Baso # (Auto) Seg Neutrophils % Seg Neuts % (Manual) Lymphocytes % (Manual) Seg Neutrophils # Seg Neutrophils # Man Lymphocytes # (Manual) D-Dimer ABG pH POC ABG pCO2 POC ABG pO2 ABG pO2 ABG HCO3 ABG O2 Saturation ABG Base Excess ABG Oxyhemoglobin ABG Sodium ABG Chloride ABG Glucose Oxyhemoglobin Carboxyhemoglobin Sodium Potassium Chloride Carbon Dioxide BUN Creatinine Glucose POC Glucose 295 H 233 H 201 H Hemoglobin A1c Magnesium Ferritin AST ALT Alkaline Phosphatase Lactate Dehydrogenase C-Reactive Protein Total Protein Albumin Arterial Blood Glucose Coronavirus (PCR) 06/16/21 06/16/21 06/17/21 17:21 21:27 07:12 WBC MCV MCH MCHC RDW Lymph % (Auto) [place] % (Auto) Eos % (Auto) Lymph # (Auto) [place] # (Auto) Eos # (Auto) Baso # (Auto) Seg Neutrophils % Seg Neuts % (Manual) Lymphocytes % (Manual) Seg Neutrophils # Seg Neutrophils # Man Lymphocytes # (Manual) D-Dimer ABG pH POC ABG pCO2 POC ABG pO2 ABG pO2 ABG HCO3 ABG O2 Saturation ABG Base Excess ABG Oxyhemoglobin ABG Sodium ABG Chloride ABG Glucose Oxyhemoglobin Carboxyhemoglobin Sodium Potassium Chloride Carbon Dioxide BUN Creatinine Glucose POC Glucose 299 H 290 H 67 L Hemoglobin A1c Magnesium Ferritin AST ALT Alkaline Phosphatase Lactate Dehydrogenase C-Reactive Protein Total Protein Albumin Arterial Blood Glucose Coronavirus (PCR) 06/17/21 06/17/21 06/17/21 11:53 17:02 22:25 WBC MCV MCH MCHC RDW Lymph % (Auto) [place] % (Auto) Eos % (Auto) Lymph # (Auto) [place] # (Auto) Eos # (Auto) Baso # (Auto) Seg Neutrophils % Seg Neuts % (Manual) Lymphocytes % (Manual) Seg Neutrophils # Seg Neutrophils # Man Lymphocytes # (Manual) D-Dimer ABG pH POC ABG pCO2 POC ABG pO2 ABG pO2 ABG HCO3 ABG O2 Saturation ABG Base Excess ABG Oxyhemoglobin ABG Sodium ABG Chloride ABG Glucose Oxyhemoglobin Carboxyhemoglobin Sodium Potassium Chloride Carbon Dioxide BUN Creatinine Glucose POC Glucose 199 H 362 H 235 H Hemoglobin A1c Magnesium Ferritin AST ALT Alkaline Phosphatase Lactate Dehydrogenase C-Reactive Protein Total Protein Albumin Arterial Blood Glucose Coronavirus (PCR) 06/18/21 06/18/21 06/18/21 08:00 11:48 16:40 WBC MCV MCH MCHC RDW Lymph % (Auto) [place] % (Auto) Eos % (Auto) Lymph # (Auto) [place] # (Auto) Eos # (Auto) Baso # (Auto) Seg Neutrophils % Seg Neuts % (Manual) Lymphocytes % (Manual) Seg Neutrophils # Seg Neutrophils # Man Lymphocytes # (Manual) D-Dimer ABG pH POC ABG pCO2 POC ABG pO2 ABG pO2 ABG HCO3 ABG O2 Saturation ABG Base Excess ABG Oxyhemoglobin ABG Sodium ABG Chloride ABG Glucose Oxyhemoglobin Carboxyhemoglobin Sodium Potassium Chloride Carbon Dioxide BUN Creatinine Glucose POC Glucose 62 L 211 H 305 H Hemoglobin A1c Magnesium Ferritin AST ALT Alkaline Phosphatase Lactate Dehydrogenase C-Reactive Protein Total Protein Albumin Arterial Blood Glucose Coronavirus (PCR) 06/18/21 06/19/21 06/19/21 21:26 07:27 11:32 WBC MCV MCH MCHC RDW Lymph % (Auto) [place] % (Auto) Eos % (Auto) Lymph # (Auto) [place] # (Auto) Eos # (Auto) Baso # (Auto) Seg Neutrophils % Seg Neuts % (Manual) Lymphocytes % (Manual) Seg Neutrophils # Seg Neutrophils # Man Lymphocytes # (Manual) D-Dimer ABG pH POC ABG pCO2 POC ABG pO2 ABG pO2 ABG HCO3 ABG O2 Saturation ABG Base Excess ABG Oxyhemoglobin ABG Sodium ABG Chloride ABG Glucose Oxyhemoglobin Carboxyhemoglobin Sodium Potassium Chloride Carbon Dioxide BUN Creatinine Glucose POC Glucose 149 H 60 L 208 H Hemoglobin A1c Magnesium Ferritin AST ALT Alkaline Phosphatase Lactate Dehydrogenase C-Reactive Protein Total Protein Albumin Arterial Blood Glucose Coronavirus (PCR) 06/19/21 06/19/21 06/20/21 16:06 22:28 07:48 WBC MCV MCH MCHC RDW Lymph % (Auto) [place] % (Auto) Eos % (Auto) Lymph # (Auto) [place] # (Auto) Eos # (Auto) Baso # (Auto) Seg Neutrophils % Seg Neuts % (Manual) Lymphocytes % (Manual) Seg Neutrophils # Seg Neutrophils # Man Lymphocytes # (Manual) D-Dimer ABG pH POC ABG pCO2 POC ABG pO2 ABG pO2 ABG HCO3 ABG O2 Saturation ABG Base Excess ABG Oxyhemoglobin ABG Sodium ABG Chloride ABG Glucose Oxyhemoglobin Carboxyhemoglobin Sodium Potassium Chloride Carbon Dioxide BUN Creatinine Glucose POC Glucose 266 H 166 H 58 L Hemoglobin A1c Magnesium Ferritin AST ALT Alkaline Phosphatase Lactate Dehydrogenase C-Reactive Protein Total Protein Albumin Arterial Blood Glucose Coronavirus (PCR) 06/20/21 06/20/21 06/20/21 09:09 11:04 16:01 WBC MCV MCH MCHC RDW Lymph % (Auto) [place] % (Auto) Eos % (Auto) Lymph # (Auto) [place] # (Auto) Eos # (Auto) Baso # (Auto) Seg Neutrophils % Seg Neuts % (Manual) Lymphocytes % (Manual) Seg Neutrophils # Seg Neutrophils # Man Lymphocytes # (Manual) D-Dimer ABG pH POC ABG pCO2 POC ABG pO2 ABG pO2 ABG HCO3 ABG O2 Saturation ABG Base Excess ABG Oxyhemoglobin ABG Sodium ABG Chloride ABG Glucose Oxyhemoglobin Carboxyhemoglobin Sodium Potassium Chloride Carbon Dioxide BUN Creatinine Glucose POC Glucose 146 H 225 H 330 H Hemoglobin A1c Magnesium Ferritin AST ALT Alkaline Phosphatase Lactate Dehydrogenase C-Reactive Protein Total Protein Albumin Arterial Blood Glucose Coronavirus (PCR) 06/20/21 06/21/21 06/21/21 20:46 06:45 06:45 WBC MCV MCH MCHC RDW 20.0 H Lymph % (Auto) [place] % (Auto) Eos % (Auto) Lymph # (Auto) [place] # (Auto) Eos # (Auto) Baso # (Auto) Seg Neutrophils % Seg Neuts % (Manual) Lymphocytes % (Manual) Seg Neutrophils # Seg Neutrophils # Man Lymphocytes # (Manual) D-Dimer ABG pH POC ABG pCO2 POC ABG pO2 ABG pO2 ABG HCO3 ABG O2 Saturation ABG Base Excess ABG Oxyhemoglobin ABG Sodium ABG Chloride ABG Glucose Oxyhemoglobin Carboxyhemoglobin Sodium Potassium 2.9 L* Chloride 95.0 L Carbon Dioxide 31 H BUN 23 H Creatinine 0.2 L Glucose 45 L POC Glucose 215 H Hemoglobin A1c Magnesium Ferritin AST ALT Alkaline Phosphatase Lactate Dehydrogenase C-Reactive Protein Total Protein Albumin Arterial Blood Glucose Coronavirus (PCR) 06/21/21 06/21/21 06/21/21 07:38 09:06 12:40 WBC MCV MCH MCHC RDW Lymph % (Auto) [place] % (Auto) Eos % (Auto) Lymph # (Auto) [place] # (Auto) Eos # (Auto) Baso # (Auto) Seg Neutrophils % Seg Neuts % (Manual) Lymphocytes % (Manual) Seg Neutrophils # Seg Neutrophils # Man Lymphocytes # (Manual) D-Dimer ABG pH POC ABG pCO2 POC ABG pO2 ABG pO2 ABG HCO3 ABG O2 Saturation ABG Base Excess ABG Oxyhemoglobin ABG Sodium ABG Chloride ABG Glucose Oxyhemoglobin Carboxyhemoglobin Sodium Potassium Chloride Carbon Dioxide BUN Creatinine Glucose POC Glucose 50 L 196 H 205 H Hemoglobin A1c Magnesium Ferritin AST ALT Alkaline Phosphatase Lactate Dehydrogenase C-Reactive Protein Total Protein Albumin Arterial Blood Glucose Coronavirus (PCR) 06/21/21 06/22/21 06/22/21 21:36 06:25 07:15 WBC MCV MCH MCHC RDW Lymph % (Auto) [place] % (Auto) Eos % (Auto) Lymph # (Auto) [place] # (Auto) Eos # (Auto) Baso # (Auto) Seg Neutrophils % Seg Neuts % (Manual) Lymphocytes % (Manual) Seg Neutrophils # Seg Neutrophils # Man Lymphocytes # (Manual) D-Dimer ABG pH POC ABG pCO2 POC ABG pO2 ABG pO2 ABG HCO3 ABG O2 Saturation ABG Base Excess ABG Oxyhemoglobin ABG Sodium ABG Chloride ABG Glucose Oxyhemoglobin Carboxyhemoglobin Sodium Potassium Chloride Carbon Dioxide BUN 20 H Creatinine 0.2 L Glucose POC Glucose 245 H 66 L Hemoglobin A1c Magnesium Ferritin AST ALT Alkaline Phosphatase Lactate Dehydrogenase C-Reactive Protein Total Protein Albumin Arterial Blood Glucose Coronavirus (PCR) 06/22/21 06/22/21 06/22/21 11:03 16:07 22:03 WBC MCV MCH MCHC RDW Lymph % (Auto) [place] % (Auto) Eos % (Auto) Lymph # (Auto) [place] # (Auto) Eos # (Auto) Baso # (Auto) Seg Neutrophils % Seg Neuts % (Manual) Lymphocytes % (Manual) Seg Neutrophils # Seg Neutrophils # Man Lymphocytes # (Manual) D-Dimer ABG pH POC ABG pCO2 POC ABG pO2 ABG pO2 ABG HCO3 ABG O2 Saturation ABG Base Excess ABG Oxyhemoglobin ABG Sodium ABG Chloride ABG Glucose Oxyhemoglobin Carboxyhemoglobin Sodium Potassium Chloride Carbon Dioxide BUN Creatinine Glucose POC Glucose 184 H 326 H 138 H Hemoglobin A1c Magnesium Ferritin AST ALT Alkaline Phosphatase Lactate Dehydrogenase C-Reactive Protein Total Protein Albumin Arterial Blood Glucose Coronavirus (PCR) 06/23/21 06/23/21 06/23/21 07:19 10:34 16:35 WBC MCV MCH MCHC RDW Lymph % (Auto) [place] % (Auto) Eos % (Auto) Lymph # (Auto) [place] # (Auto) Eos # (Auto) Baso # (Auto) Seg Neutrophils % Seg Neuts % (Manual) Lymphocytes % (Manual) Seg Neutrophils # Seg Neutrophils # Man Lymphocytes # (Manual) D-Dimer ABG pH POC ABG pCO2 POC ABG pO2 ABG pO2 ABG HCO3 ABG O2 Saturation ABG Base Excess ABG Oxyhemoglobin ABG Sodium ABG Chloride ABG Glucose Oxyhemoglobin Carboxyhemoglobin Sodium Potassium Chloride Carbon Dioxide BUN Creatinine Glucose POC Glucose 69 L 218 H 326 H Hemoglobin A1c Magnesium Ferritin AST ALT Alkaline Phosphatase Lactate Dehydrogenase C-Reactive Protein Total Protein Albumin Arterial Blood Glucose Coronavirus (PCR) 06/23/21 06/24/21 06/24/21 22:44 11:41 16:54 WBC MCV MCH MCHC RDW Lymph % (Auto) [place] % (Auto) Eos % (Auto) Lymph # (Auto) [place] # (Auto) Eos # (Auto) Baso # (Auto) Seg Neutrophils % Seg Neuts % (Manual) Lymphocytes % (Manual) Seg Neutrophils # Seg Neutrophils # Man Lymphocytes # (Manual) D-Dimer ABG pH POC ABG pCO2 POC ABG pO2 ABG pO2 ABG HCO3 ABG O2 Saturation ABG Base Excess ABG Oxyhemoglobin ABG Sodium ABG Chloride ABG Glucose Oxyhemoglobin Carboxyhemoglobin Sodium Potassium Chloride Carbon Dioxide BUN Creatinine Glucose POC Glucose 252 H 217 H 357 H Hemoglobin A1c Magnesium Ferritin AST ALT Alkaline Phosphatase Lactate Dehydrogenase C-Reactive Protein Total Protein Albumin Arterial Blood Glucose Coronavirus (PCR) 06/24/21 06/25/21 06/25/21 20:40 11:51 16:47 WBC MCV MCH MCHC RDW Lymph % (Auto) [place] % (Auto) Eos % (Auto) Lymph # (Auto) [place] # (Auto) Eos # (Auto) Baso # (Auto) Seg Neutrophils % Seg Neuts % (Manual) Lymphocytes % (Manual) Seg Neutrophils # Seg Neutrophils # Man Lymphocytes # (Manual) D-Dimer ABG pH POC ABG pCO2 POC ABG pO2 ABG pO2 ABG HCO3 ABG O2 Saturation ABG Base Excess ABG Oxyhemoglobin ABG Sodium ABG Chloride ABG Glucose Oxyhemoglobin Carboxyhemoglobin Sodium Potassium Chloride Carbon Dioxide BUN Creatinine Glucose POC Glucose 239 H 182 H 229 H Hemoglobin A1c Magnesium Ferritin AST ALT Alkaline Phosphatase Lactate Dehydrogenase C-Reactive Protein Total Protein Albumin Arterial Blood Glucose Coronavirus (PCR) 06/25/21 06/26/21 06/26/21 22:27 07:20 12:19 WBC MCV MCH MCHC RDW Lymph % (Auto) [place] % (Auto) Eos % (Auto) Lymph # (Auto) [place] # (Auto) Eos # (Auto) Baso # (Auto) Seg Neutrophils % Seg Neuts % (Manual) Lymphocytes % (Manual) Seg Neutrophils # Seg Neutrophils # Man Lymphocytes # (Manual) D-Dimer ABG pH POC ABG pCO2 POC ABG pO2 ABG pO2 ABG HCO3 ABG O2 Saturation ABG Base Excess ABG Oxyhemoglobin ABG Sodium ABG Chloride ABG Glucose Oxyhemoglobin Carboxyhemoglobin Sodium Potassium 3.2 L D Chloride Carbon Dioxide BUN 20 H Creatinine 0.3 L Glucose POC Glucose 209 H 273 H Hemoglobin A1c Magnesium Ferritin AST ALT 77 H Alkaline Phosphatase Lactate Dehydrogenase C-Reactive Protein Total Protein Albumin 3.3 L Arterial Blood Glucose Coronavirus (PCR) 06/26/21 06/26/21 06/27/21 16:52 20:55 07:14 WBC MCV MCH MCHC RDW Lymph % (Auto) [place] % (Auto) Eos % (Auto) Lymph # (Auto) [place] # (Auto) Eos # (Auto) Baso # (Auto) Seg Neutrophils % Seg Neuts % (Manual) Lymphocytes % (Manual) Seg Neutrophils # Seg Neutrophils # Man Lymphocytes # (Manual) D-Dimer ABG pH POC ABG pCO2 POC ABG pO2 ABG pO2 ABG HCO3 ABG O2 Saturation ABG Base Excess ABG Oxyhemoglobin ABG Sodium ABG Chloride ABG Glucose Oxyhemoglobin Carboxyhemoglobin Sodium Potassium Chloride Carbon Dioxide 31 H BUN 19 H Creatinine 0.2 L Glucose 112 H POC Glucose 326 H 220 H Hemoglobin A1c Magnesium Ferritin AST ALT Alkaline Phosphatase Lactate Dehydrogenase C-Reactive Protein Total Protein Albumin Arterial Blood Glucose Coronavirus (PCR) 06/27/21 06/27/21 06/27/21 07:29 10:54 15:49 WBC MCV MCH MCHC RDW Lymph % (Auto) [place] % (Auto) Eos % (Auto) Lymph # (Auto) [place] # (Auto) Eos # (Auto) Baso # (Auto) Seg Neutrophils % Seg Neuts % (Manual) Lymphocytes % (Manual) Seg Neutrophils # Seg Neutrophils # Man Lymphocytes # (Manual) D-Dimer ABG pH POC ABG pCO2 POC ABG pO2 ABG pO2 ABG HCO3 ABG O2 Saturation ABG Base Excess ABG Oxyhemoglobin ABG Sodium ABG Chloride ABG Glucose Oxyhemoglobin Carboxyhemoglobin Sodium Potassium Chloride Carbon Dioxide BUN Creatinine Glucose POC Glucose 115 H 228 H 240 H Hemoglobin A1c Magnesium Ferritin AST ALT Alkaline Phosphatase Lactate Dehydrogenase C-Reactive Protein Total Protein Albumin Arterial Blood Glucose Coronavirus (PCR) 06/28/21 06/28/21 06/28/21 05:43 05:43 07:13 WBC MCV MCH 33 H MCHC RDW 19.8 H Lymph % (Auto) [place] % (Auto) Eos % (Auto) Lymph # (Auto) [place] # (Auto) Eos # (Auto) Baso # (Auto) Seg Neutrophils % Seg Neuts % (Manual) Lymphocytes % (Manual) Seg Neutrophils # Seg Neutrophils # Man Lymphocytes # (Manual) D-Dimer ABG pH POC ABG pCO2 POC ABG pO2 ABG pO2 ABG HCO3 ABG O2 Saturation ABG Base Excess ABG Oxyhemoglobin ABG Sodium ABG Chloride ABG Glucose Oxyhemoglobin Carboxyhemoglobin Sodium Potassium 3.3 L Chloride Carbon Dioxide BUN 22 H Creatinine 0.2 L Glucose POC Glucose 69 L Hemoglobin A1c Magnesium Ferritin AST ALT 63 H Alkaline Phosphatase Lactate Dehydrogenase C-Reactive Protein Total Protein Albumin 3.3 L Arterial Blood Glucose Coronavirus (PCR) 06/28/21 06/28/21 06/28/21 12:18 15:37 21:01 WBC MCV MCH MCHC RDW Lymph % (Auto) [place] % (Auto) Eos % (Auto) Lymph # (Auto) [place] # (Auto) Eos # (Auto) Baso # (Auto) Seg Neutrophils % Seg Neuts % (Manual) Lymphocytes % (Manual) Seg Neutrophils # Seg Neutrophils # Man Lymphocytes # (Manual) D-Dimer ABG pH POC ABG pCO2 POC ABG pO2 ABG pO2 ABG HCO3 ABG O2 Saturation ABG Base Excess ABG Oxyhemoglobin ABG Sodium ABG Chloride ABG Glucose Oxyhemoglobin Carboxyhemoglobin Sodium Potassium Chloride Carbon Dioxide BUN Creatinine Glucose POC Glucose 154 H 201 H 191 H Hemoglobin A1c Magnesium Ferritin AST ALT Alkaline Phosphatase Lactate Dehydrogenase C-Reactive Protein Total Protein Albumin Arterial Blood Glucose Coronavirus (PCR) 06/29/21 06/29/21 06/29/21 11:55 15:47 21:06 WBC MCV MCH MCHC RDW Lymph % (Auto) [place] % (Auto) Eos % (Auto) Lymph # (Auto) [place] # (Auto) Eos # (Auto) Baso # (Auto) Seg Neutrophils % Seg Neuts % (Manual) Lymphocytes % (Manual) Seg Neutrophils # Seg Neutrophils # Man Lymphocytes # (Manual) D-Dimer ABG pH POC ABG pCO2 POC ABG pO2 ABG pO2 ABG HCO3 ABG O2 Saturation ABG Base Excess ABG Oxyhemoglobin ABG Sodium ABG Chloride ABG Glucose Oxyhemoglobin Carboxyhemoglobin Sodium Potassium Chloride Carbon Dioxide BUN Creatinine Glucose POC Glucose 238 H 249 H 155 H Hemoglobin A1c Magnesium Ferritin AST ALT Alkaline Phosphatase Lactate Dehydrogenase C-Reactive Protein Total Protein Albumin Arterial Blood Glucose Coronavirus (PCR) 06/30/21 06/30/21 06/30/21 04:00 07:50 11:50 WBC MCV MCH MCHC RDW Lymph % (Auto) [place] % (Auto) Eos % (Auto) Lymph # (Auto) [place] # (Auto) Eos # (Auto) Baso # (Auto) Seg Neutrophils % Seg Neuts % (Manual) Lymphocytes % (Manual) Seg Neutrophils # Seg Neutrophils # Man Lymphocytes # (Manual) D-Dimer ABG pH POC ABG pCO2 POC ABG pO2 ABG pO2 ABG HCO3 ABG O2 Saturation ABG Base Excess ABG Oxyhemoglobin ABG Sodium ABG Chloride ABG Glucose Oxyhemoglobin Carboxyhemoglobin Sodium Potassium 3.5 L Chloride Carbon Dioxide BUN 18 H Creatinine 0.3 L Glucose 111 H POC Glucose 117 H 250 H Hemoglobin A1c Magnesium Ferritin AST ALT Alkaline Phosphatase Lactate Dehydrogenase C-Reactive Protein Total Protein Albumin Arterial Blood Glucose Coronavirus (PCR) 06/30/21 06/30/21 07/01/21 16:05 21:02 07:26 WBC MCV MCH MCHC RDW Lymph % (Auto) [place] % (Auto) Eos % (Auto) Lymph # (Auto) [place] # (Auto) Eos # (Auto) Baso # (Auto) Seg Neutrophils % Seg Neuts % (Manual) Lymphocytes % (Manual) Seg Neutrophils # Seg Neutrophils # Man Lymphocytes # (Manual) D-Dimer ABG pH POC ABG pCO2 POC ABG pO2 ABG pO2 ABG HCO3 ABG O2 Saturation ABG Base Excess ABG Oxyhemoglobin ABG Sodium ABG Chloride ABG Glucose Oxyhemoglobin Carboxyhemoglobin Sodium Potassium Chloride Carbon Dioxide BUN Creatinine Glucose POC Glucose 250 H 217 H 111 H Hemoglobin A1c Magnesium Ferritin AST ALT Alkaline Phosphatase Lactate Dehydrogenase C-Reactive Protein Total Protein Albumin Arterial Blood Glucose Coronavirus (PCR) 07/01/21 07/01/21 07/01/21 11:06 15:48 21:31 WBC MCV MCH MCHC RDW Lymph % (Auto) [place] % (Auto) Eos % (Auto) Lymph # (Auto) [place] # (Auto) Eos # (Auto) Baso # (Auto) Seg Neutrophils % Seg Neuts % (Manual) Lymphocytes % (Manual) Seg Neutrophils # Seg Neutrophils # Man Lymphocytes # (Manual) D-Dimer ABG pH POC ABG pCO2 POC ABG pO2 ABG pO2 ABG HCO3 ABG O2 Saturation ABG Base Excess ABG Oxyhemoglobin ABG Sodium ABG Chloride ABG Glucose Oxyhemoglobin Carboxyhemoglobin Sodium Potassium Chloride Carbon Dioxide BUN Creatinine Glucose POC Glucose 229 H 239 H 199 H Hemoglobin A1c Magnesium Ferritin AST ALT Alkaline Phosphatase Lactate Dehydrogenase C-Reactive Protein Total Protein Albumin Arterial Blood Glucose Coronavirus (PCR) 07/02/21 07/02/21 07/02/21 11:50 16:44 21:49 WBC MCV MCH MCHC RDW Lymph % (Auto) [place] % (Auto) Eos % (Auto) Lymph # (Auto) [place] # (Auto) Eos # (Auto) Baso # (Auto) Seg Neutrophils % Seg Neuts % (Manual) Lymphocytes % (Manual) Seg Neutrophils # Seg Neutrophils # Man Lymphocytes # (Manual) D-Dimer ABG pH POC ABG pCO2 POC ABG pO2 ABG pO2 ABG HCO3 ABG O2 Saturation ABG Base Excess ABG Oxyhemoglobin ABG Sodium ABG Chloride ABG Glucose Oxyhemoglobin Carboxyhemoglobin Sodium Potassium Chloride Carbon Dioxide BUN Creatinine Glucose POC Glucose 230 H 203 H 197 H Hemoglobin A1c Magnesium Ferritin AST ALT Alkaline Phosphatase Lactate Dehydrogenase C-Reactive Protein Total Protein Albumin Arterial Blood Glucose Coronavirus (PCR) 07/03/21 07/03/21 07/03/21 05:46 05:46 11:59 WBC MCV MCH MCHC RDW 19.6 H Lymph % (Auto) [place] % (Auto) Eos % (Auto) Lymph # (Auto) [place] # (Auto) Eos # (Auto) Baso # (Auto) Seg Neutrophils % Seg Neuts % (Manual) Lymphocytes % (Manual) Seg Neutrophils # Seg Neutrophils # Man Lymphocytes # (Manual) D-Dimer ABG pH POC ABG pCO2 POC ABG pO2 ABG pO2 ABG HCO3 ABG O2 Saturation ABG Base Excess ABG Oxyhemoglobin ABG Sodium ABG Chloride ABG Glucose Oxyhemoglobin Carboxyhemoglobin Sodium Potassium 3.2 L Chloride Carbon Dioxide BUN Creatinine 0.3 L Glucose POC Glucose 145 H Hemoglobin A1c Magnesium Ferritin AST ALT Alkaline Phosphatase Lactate Dehydrogenase C-Reactive Protein Total Protein Albumin Arterial Blood Glucose Coronavirus (PCR) 07/03/21 07/03/21 07/04/21 16:40 22:00 06:35 WBC MCV MCH MCHC RDW Lymph % (Auto) [place] % (Auto) Eos % (Auto) Lymph # (Auto) [place] # (Auto) Eos # (Auto) Baso # (Auto) Seg Neutrophils % Seg Neuts % (Manual) Lymphocytes % (Manual) Seg Neutrophils # Seg Neutrophils # Man Lymphocytes # (Manual) D-Dimer ABG pH POC ABG pCO2 POC ABG pO2 ABG pO2 ABG HCO3 ABG O2 Saturation ABG Base Excess ABG Oxyhemoglobin ABG Sodium ABG Chloride ABG Glucose Oxyhemoglobin Carboxyhemoglobin Sodium Potassium Chloride Carbon Dioxide BUN Creatinine 0.3 L Glucose 118 H POC Glucose 176 H 127 H Hemoglobin A1c Magnesium Ferritin AST ALT Alkaline Phosphatase Lactate Dehydrogenase C-Reactive Protein Total Protein Albumin Arterial Blood Glucose Coronavirus (PCR) 07/04/21 07/04/21 07/05/21 12:30 16:38 08:37 WBC MCV MCH MCHC RDW Lymph % (Auto) [place] % (Auto) Eos % (Auto) Lymph # (Auto) [place] # (Auto) Eos # (Auto) Baso # (Auto) Seg Neutrophils % Seg Neuts % (Manual) Lymphocytes % (Manual) Seg Neutrophils # Seg Neutrophils # Man Lymphocytes # (Manual) D-Dimer ABG pH POC ABG pCO2 POC ABG pO2 ABG pO2 ABG HCO3 ABG O2 Saturation ABG Base Excess ABG Oxyhemoglobin ABG Sodium ABG Chloride ABG Glucose Oxyhemoglobin Carboxyhemoglobin Sodium Potassium Chloride Carbon Dioxide BUN Creatinine Glucose POC Glucose 162 H 205 H 115 H Hemoglobin A1c Magnesium Ferritin AST ALT Alkaline Phosphatase Lactate Dehydrogenase C-Reactive Protein Total Protein Albumin Arterial Blood Glucose Coronavirus (PCR) 07/05/21 07/05/21 07/05/21 10:57 16:42 21:14 WBC MCV MCH MCHC RDW Lymph % (Auto) [place] % (Auto) Eos % (Auto) Lymph # (Auto) [place] # (Auto) Eos # (Auto) Baso # (Auto) Seg Neutrophils % Seg Neuts % (Manual) Lymphocytes % (Manual) Seg Neutrophils # Seg Neutrophils # Man Lymphocytes # (Manual) D-Dimer ABG pH POC ABG pCO2 POC ABG pO2 ABG pO2 ABG HCO3 ABG O2 Saturation ABG Base Excess ABG Oxyhemoglobin ABG Sodium ABG Chloride ABG Glucose Oxyhemoglobin Carboxyhemoglobin Sodium Potassium Chloride Carbon Dioxide BUN Creatinine Glucose POC Glucose 151 H 184 H 130 H Hemoglobin A1c Magnesium Ferritin AST ALT Alkaline Phosphatase Lactate Dehydrogenase C-Reactive Protein Total Protein Albumin Arterial Blood Glucose Coronavirus (PCR) 07/06/21 07/06/21 07/06/21 07:31 11:49 16:46 WBC MCV MCH MCHC RDW Lymph % (Auto) [place] % (Auto) Eos % (Auto) Lymph # (Auto) [place] # (Auto) Eos # (Auto) Baso # (Auto) Seg Neutrophils % Seg Neuts % (Manual) Lymphocytes % (Manual) Seg Neutrophils # Seg Neutrophils # Man Lymphocytes # (Manual) D-Dimer ABG pH POC ABG pCO2 POC ABG pO2 ABG pO2 ABG HCO3 ABG O2 Saturation ABG Base Excess ABG Oxyhemoglobin ABG Sodium ABG Chloride ABG Glucose Oxyhemoglobin Carboxyhemoglobin Sodium Potassium Chloride Carbon Dioxide BUN Creatinine Glucose POC Glucose 106 H 173 H 205 H Hemoglobin A1c Magnesium Ferritin AST ALT Alkaline Phosphatase Lactate Dehydrogenase C-Reactive Protein Total Protein Albumin Arterial Blood Glucose Coronavirus (PCR) 07/06/21 07/07/21 07/07/21 21:38 06:00 06:00 WBC 16.1 H MCV MCH MCHC RDW 18.8 H Lymph % (Auto) [place] % (Auto) Eos % (Auto) Lymph # (Auto) [place] # (Auto) 1.1 H Eos # (Auto) Baso # (Auto) 0.2 H Seg Neutrophils % 74.9 H Seg Neuts % (Manual) Lymphocytes % (Manual) Seg Neutrophils # 12.1 H Seg Neutrophils # Man Lymphocytes # (Manual) D-Dimer ABG pH POC ABG pCO2 POC ABG pO2 ABG pO2 ABG HCO3 ABG O2 Saturation ABG Base Excess ABG Oxyhemoglobin ABG Sodium ABG Chloride ABG Glucose Oxyhemoglobin Carboxyhemoglobin Sodium Potassium 3.5 L D Chloride Carbon Dioxide BUN 6 L Creatinine < 0.2 L Glucose 106 H POC Glucose 120 H Hemoglobin A1c Magnesium Ferritin AST ALT Alkaline Phosphatase Lactate Dehydrogenase C-Reactive Protein Total Protein Albumin Arterial Blood Glucose Coronavirus (PCR) 07/07/21 07/07/21 07/07/21 07:10 11:53 15:53 WBC MCV MCH MCHC RDW Lymph % (Auto) [place] % (Auto) Eos % (Auto) Lymph # (Auto) [place] # (Auto) Eos # (Auto) Baso # (Auto) Seg Neutrophils % Seg Neuts % (Manual) Lymphocytes % (Manual) Seg Neutrophils # Seg Neutrophils # Man Lymphocytes # (Manual) D-Dimer ABG pH POC ABG pCO2 POC ABG pO2 ABG pO2 ABG HCO3 ABG O2 Saturation ABG Base Excess ABG Oxyhemoglobin ABG Sodium ABG Chloride ABG Glucose Oxyhemoglobin Carboxyhemoglobin Sodium Potassium Chloride Carbon Dioxide BUN Creatinine Glucose POC Glucose 132 H 169 H 242 H Hemoglobin A1c Magnesium Ferritin AST ALT Alkaline Phosphatase Lactate Dehydrogenase C-Reactive Protein Total Protein Albumin Arterial Blood Glucose Coronavirus (PCR) 07/07/21 07/08/21 07/08/21 21:41 08:09 12:20 WBC MCV MCH MCHC RDW Lymph % (Auto) [place] % (Auto) Eos % (Auto) Lymph # (Auto) [place] # (Auto) Eos # (Auto) Baso # (Auto) Seg Neutrophils % Seg Neuts % (Manual) Lymphocytes % (Manual) Seg Neutrophils # Seg Neutrophils # Man Lymphocytes # (Manual) D-Dimer ABG pH POC ABG pCO2 POC ABG pO2 ABG pO2 ABG HCO3 ABG O2 Saturation ABG Base Excess ABG Oxyhemoglobin ABG Sodium ABG Chloride ABG Glucose Oxyhemoglobin Carboxyhemoglobin Sodium Potassium Chloride Carbon Dioxide BUN Creatinine Glucose POC Glucose 128 H 132 H 179 H Hemoglobin A1c Magnesium Ferritin AST ALT Alkaline Phosphatase Lactate Dehydrogenase C-Reactive Protein Total Protein Albumin Arterial Blood Glucose Coronavirus (PCR) 07/08/21 07/08/21 07/08/21 16:37 21:45 22:44 WBC MCV MCH MCHC RDW Lymph % (Auto) [place] % (Auto) Eos % (Auto) Lymph # (Auto) [place] # (Auto) Eos # (Auto) Baso # (Auto) Seg Neutrophils % Seg Neuts % (Manual) Lymphocytes % (Manual) Seg Neutrophils # Seg Neutrophils # Man Lymphocytes # (Manual) D-Dimer ABG pH POC ABG pCO2 POC ABG pO2 ABG pO2 ABG HCO3 ABG O2 Saturation ABG Base Excess ABG Oxyhemoglobin ABG Sodium ABG Chloride ABG Glucose Oxyhemoglobin Carboxyhemoglobin Sodium Potassium Chloride Carbon Dioxide BUN Creatinine Glucose POC Glucose 192 H 51 L 137 H Hemoglobin A1c Magnesium Ferritin AST ALT Alkaline Phosphatase Lactate Dehydrogenase C-Reactive Protein Total Protein Albumin Arterial Blood Glucose Coronavirus (PCR) 07/09/21 07/09/21 07/09/21 04:45 04:45 04:45 WBC MCV MCH MCHC RDW 18.3 H Lymph % (Auto) [place] % (Auto) Eos % (Auto) Lymph # (Auto) [place] # (Auto) Eos # (Auto) Baso # (Auto) Seg Neutrophils % Seg Neuts % (Manual) 82.0 H Lymphocytes % (Manual) 13.0 L Seg Neutrophils # Seg Neutrophils # Man 7.8 H Lymphocytes # (Manual) D-Dimer 638.35 H ABG pH POC ABG pCO2 POC ABG pO2 ABG pO2 ABG HCO3 ABG O2 Saturation ABG Base Excess ABG Oxyhemoglobin ABG Sodium ABG Chloride ABG Glucose Oxyhemoglobin Carboxyhemoglobin Sodium Potassium Chloride 96.9 L Carbon Dioxide 35 H BUN Creatinine 0.2 L Glucose 135 H POC Glucose Hemoglobin A1c Magnesium Ferritin AST ALT Alkaline Phosphatase Lactate Dehydrogenase C-Reactive Protein 4.30 H Total Protein Albumin Arterial Blood Glucose Coronavirus (PCR) 07/09/21 07/09/21 07/09/21 05:19 07:36 11:16 WBC MCV MCH MCHC RDW Lymph % (Auto) [place] % (Auto) Eos % (Auto) Lymph # (Auto) [place] # (Auto) Eos # (Auto) Baso # (Auto) Seg Neutrophils % Seg Neuts % (Manual) Lymphocytes % (Manual) Seg Neutrophils # Seg Neutrophils # Man Lymphocytes # (Manual) D-Dimer ABG pH POC ABG pCO2 POC ABG pO2 ABG pO2 ABG HCO3 ABG O2 Saturation ABG Base Excess ABG Oxyhemoglobin ABG Sodium ABG Chloride ABG Glucose Oxyhemoglobin Carboxyhemoglobin Sodium Potassium Chloride Carbon Dioxide BUN Creatinine Glucose POC Glucose 135 H 148 H 212 H Hemoglobin A1c Magnesium Ferritin AST ALT Alkaline Phosphatase Lactate Dehydrogenase C-Reactive Protein Total Protein Albumin Arterial Blood Glucose Coronavirus (PCR) 07/09/21 07/09/21 07/10/21 15:21 21:12 05:40 WBC MCV MCH MCHC RDW Lymph % (Auto) [place] % (Auto) Eos % (Auto) Lymph # (Auto) [place] # (Auto) Eos # (Auto) Baso # (Auto) Seg Neutrophils % Seg Neuts % (Manual) Lymphocytes % (Manual) Seg Neutrophils # Seg Neutrophils # Man Lymphocytes # (Manual) D-Dimer ABG pH POC ABG pCO2 POC ABG pO2 ABG pO2 ABG HCO3 ABG O2 Saturation ABG Base Excess ABG Oxyhemoglobin ABG Sodium ABG Chloride ABG Glucose Oxyhemoglobin Carboxyhemoglobin Sodium Potassium 3.3 L Chloride 95.1 L Carbon Dioxide 39 H BUN Creatinine 0.2 L Glucose 122 H POC Glucose 128 H 196 H Hemoglobin A1c Magnesium Ferritin AST ALT Alkaline Phosphatase Lactate Dehydrogenase C-Reactive Protein Total Protein Albumin Arterial Blood Glucose Coronavirus (PCR) 07/10/21 07/10/21 07/10/21 07:38 11:15 16:29 WBC MCV MCH MCHC RDW Lymph % (Auto) [place] % (Auto) Eos % (Auto) Lymph # (Auto) [place] # (Auto) Eos # (Auto) Baso # (Auto) Seg Neutrophils % Seg Neuts % (Manual) Lymphocytes % (Manual) Seg Neutrophils # Seg Neutrophils # Man Lymphocytes # (Manual) D-Dimer ABG pH POC ABG pCO2 POC ABG pO2 ABG pO2 ABG HCO3 ABG O2 Saturation ABG Base Excess ABG Oxyhemoglobin ABG Sodium ABG Chloride ABG Glucose Oxyhemoglobin Carboxyhemoglobin Sodium Potassium Chloride Carbon Dioxide BUN Creatinine Glucose POC Glucose 128 H 175 H 174 H Hemoglobin A1c Magnesium Ferritin AST ALT Alkaline Phosphatase Lactate Dehydrogenase C-Reactive Protein Total Protein Albumin Arterial Blood Glucose Coronavirus (PCR) 07/10/21 07/11/21 07/11/21 20:49 05:50 12:08 WBC MCV MCH MCHC RDW Lymph % (Auto) [place] % (Auto) Eos % (Auto) Lymph # (Auto) [place] # (Auto) Eos # (Auto) Baso # (Auto) Seg Neutrophils % Seg Neuts % (Manual) Lymphocytes % (Manual) Seg Neutrophils # Seg Neutrophils # Man Lymphocytes # (Manual) D-Dimer ABG pH POC ABG pCO2 POC ABG pO2 ABG pO2 ABG HCO3 ABG O2 Saturation ABG Base Excess ABG Oxyhemoglobin ABG Sodium ABG Chloride ABG Glucose Oxyhemoglobin Carboxyhemoglobin Sodium Potassium Chloride 97.3 L Carbon Dioxide 34 H BUN Creatinine 0.2 L Glucose 109 H POC Glucose 142 H 220 H Hemoglobin A1c Magnesium Ferritin AST ALT Alkaline Phosphatase Lactate Dehydrogenase C-Reactive Protein Total Protein Albumin Arterial Blood Glucose Coronavirus (PCR) 07/11/21 07/11/21 07/12/21 17:09 21:55 07:36 WBC MCV MCH MCHC RDW Lymph % (Auto) [place] % (Auto) Eos % (Auto) Lymph # (Auto) [place] # (Auto) Eos # (Auto) Baso # (Auto) Seg Neutrophils % Seg Neuts % (Manual) Lymphocytes % (Manual) Seg Neutrophils # Seg Neutrophils # Man Lymphocytes # (Manual) D-Dimer ABG pH POC ABG pCO2 POC ABG pO2 ABG pO2 ABG HCO3 ABG O2 Saturation ABG Base Excess ABG Oxyhemoglobin ABG Sodium ABG Chloride ABG Glucose Oxyhemoglobin Carboxyhemoglobin Sodium Potassium Chloride Carbon Dioxide BUN Creatinine Glucose POC Glucose 219 H 124 H 114 H Hemoglobin A1c Magnesium Ferritin AST ALT Alkaline Phosphatase Lactate Dehydrogenase C-Reactive Protein Total Protein Albumin Arterial Blood Glucose Coronavirus (PCR) 07/12/21 07/12/21 07/12/21 11:08 15:43 22:20 WBC MCV MCH MCHC RDW Lymph % (Auto) [place] % (Auto) Eos % (Auto) Lymph # (Auto) [place] # (Auto) Eos # (Auto) Baso # (Auto) Seg Neutrophils % Seg Neuts % (Manual) Lymphocytes % (Manual) Seg Neutrophils # Seg Neutrophils # Man Lymphocytes # (Manual) D-Dimer ABG pH POC ABG pCO2 POC ABG pO2 ABG pO2 ABG HCO3 ABG O2 Saturation ABG Base Excess ABG Oxyhemoglobin ABG Sodium ABG Chloride ABG Glucose Oxyhemoglobin Carboxyhemoglobin Sodium Potassium Chloride Carbon Dioxide BUN Creatinine Glucose POC Glucose 195 H 276 H 189 H Hemoglobin A1c Magnesium Ferritin AST ALT Alkaline Phosphatase Lactate Dehydrogenase C-Reactive Protein Total Protein Albumin Arterial Blood Glucose Coronavirus (PCR) 07/13/21 07/13/21 07/13/21 08:01 08:08 10:17 WBC MCV MCH MCHC RDW Lymph % (Auto) [place] % (Auto) Eos % (Auto) Lymph # (Auto) [place] # (Auto) Eos # (Auto) Baso # (Auto) Seg Neutrophils % Seg Neuts % (Manual) Lymphocytes % (Manual) Seg Neutrophils # Seg Neutrophils # Man Lymphocytes # (Manual) D-Dimer ABG pH POC ABG pCO2 POC ABG pO2 ABG pO2 ABG HCO3 ABG O2 Saturation ABG Base Excess ABG Oxyhemoglobin ABG Sodium ABG Chloride ABG Glucose Oxyhemoglobin Carboxyhemoglobin Sodium Potassium Chloride 94.4 L Carbon Dioxide 34 H BUN Creatinine 0.3 L Glucose 149 H POC Glucose 132 H 265 H Hemoglobin A1c Magnesium Ferritin AST ALT Alkaline Phosphatase Lactate Dehydrogenase C-Reactive Protein Total Protein Albumin Arterial Blood Glucose Coronavirus (PCR) 07/13/21 07/13/21 07/14/21 17:58 21:41 07:34 WBC MCV MCH MCHC RDW Lymph % (Auto) [place] % (Auto) Eos % (Auto) Lymph # (Auto) [place] # (Auto) Eos # (Auto) Baso # (Auto) Seg Neutrophils % Seg Neuts % (Manual) Lymphocytes % (Manual) Seg Neutrophils # Seg Neutrophils # Man Lymphocytes # (Manual) D-Dimer ABG pH POC ABG pCO2 POC ABG pO2 ABG pO2 ABG HCO3 ABG O2 Saturation ABG Base Excess ABG Oxyhemoglobin ABG Sodium ABG Chloride ABG Glucose Oxyhemoglobin Carboxyhemoglobin Sodium Potassium Chloride Carbon Dioxide BUN Creatinine Glucose POC Glucose 217 H 223 H 116 H Hemoglobin A1c Magnesium Ferritin AST ALT Alkaline Phosphatase Lactate Dehydrogenase C-Reactive Protein Total Protein Albumin Arterial Blood Glucose Coronavirus (PCR) 07/14/21 07/14/21 07/14/21 10:50 17:33 20:51 WBC MCV MCH MCHC RDW Lymph % (Auto) [place] % (Auto) Eos % (Auto) Lymph # (Auto) [place] # (Auto) Eos # (Auto) Baso # (Auto) Seg Neutrophils % Seg Neuts % (Manual) Lymphocytes % (Manual) Seg Neutrophils # Seg Neutrophils # Man Lymphocytes # (Manual) D-Dimer ABG pH POC ABG pCO2 POC ABG pO2 ABG pO2 ABG HCO3 ABG O2 Saturation ABG Base Excess ABG Oxyhemoglobin ABG Sodium ABG Chloride ABG Glucose Oxyhemoglobin Carboxyhemoglobin Sodium Potassium Chloride Carbon Dioxide BUN Creatinine Glucose POC Glucose 191 H 173 H 132 H Hemoglobin A1c Magnesium Ferritin AST ALT Alkaline Phosphatase Lactate Dehydrogenase C-Reactive Protein Total Protein Albumin Arterial Blood Glucose Coronavirus (PCR) 07/15/21 07/15/21 07/15/21 04:00 07:59 12:31 WBC MCV MCH MCHC RDW Lymph % (Auto) [place] % (Auto) Eos % (Auto) Lymph # (Auto) [place] # (Auto) Eos # (Auto) Baso # (Auto) Seg Neutrophils % Seg Neuts % (Manual) Lymphocytes % (Manual) Seg Neutrophils # Seg Neutrophils # Man Lymphocytes # (Manual) D-Dimer ABG pH POC ABG pCO2 POC ABG pO2 ABG pO2 ABG HCO3 ABG O2 Saturation ABG Base Excess ABG Oxyhemoglobin ABG Sodium ABG Chloride ABG Glucose Oxyhemoglobin Carboxyhemoglobin Sodium Potassium Chloride 96.0 L Carbon Dioxide 32 H BUN Creatinine 0.3 L Glucose 208 H POC Glucose 117 H 195 H Hemoglobin A1c Magnesium Ferritin AST ALT Alkaline Phosphatase Lactate Dehydrogenase C-Reactive Protein Total Protein Albumin Arterial Blood Glucose Coronavirus (PCR) 07/15/21 07/15/21 07/16/21 18:00 20:57 04:40 WBC MCV MCH MCHC RDW 17.1 H Lymph % (Auto) [place] % (Auto) Eos % (Auto) Lymph # (Auto) [place] # (Auto) Eos # (Auto) Baso # (Auto) Seg Neutrophils % Seg Neuts % (Manual) Lymphocytes % (Manual) Seg Neutrophils # Seg Neutrophils # Man Lymphocytes # (Manual) D-Dimer ABG pH POC ABG pCO2 POC ABG pO2 ABG pO2 ABG HCO3 ABG O2 Saturation ABG Base Excess ABG Oxyhemoglobin ABG Sodium ABG Chloride ABG Glucose Oxyhemoglobin Carboxyhemoglobin Sodium Potassium Chloride Carbon Dioxide BUN Creatinine Glucose POC Glucose 217 H 111 H Hemoglobin A1c Magnesium Ferritin AST ALT Alkaline Phosphatase Lactate Dehydrogenase C-Reactive Protein Total Protein Albumin Arterial Blood Glucose Coronavirus (PCR) 07/16/21 07/16/21 07/16/21 04:40 07:08 11:11 WBC MCV MCH MCHC RDW Lymph % (Auto) [place] % (Auto) Eos % (Auto) Lymph # (Auto) [place] # (Auto) Eos # (Auto) Baso # (Auto) Seg Neutrophils % Seg Neuts % (Manual) Lymphocytes % (Manual) Seg Neutrophils # Seg Neutrophils # Man Lymphocytes # (Manual) D-Dimer ABG pH POC ABG pCO2 POC ABG pO2 ABG pO2 ABG HCO3 ABG O2 Saturation ABG Base Excess ABG Oxyhemoglobin ABG Sodium ABG Chloride ABG Glucose Oxyhemoglobin Carboxyhemoglobin Sodium Potassium 3.4 L Chloride 94.6 L Carbon Dioxide 36 H BUN Creatinine < 0.2 L Glucose 101 H POC Glucose 118 H 184 H Hemoglobin A1c Magnesium Ferritin AST ALT Alkaline Phosphatase Lactate Dehydrogenase C-Reactive Protein Total Protein Albumin Arterial Blood Glucose Coronavirus (PCR) 07/16/21 07/16/21 07/17/21 17:29 22:01 08:10 WBC MCV MCH MCHC RDW Lymph % (Auto) [place] % (Auto) Eos % (Auto) Lymph # (Auto) [place] # (Auto) Eos # (Auto) Baso # (Auto) Seg Neutrophils % Seg Neuts % (Manual) Lymphocytes % (Manual) Seg Neutrophils # Seg Neutrophils # Man Lymphocytes # (Manual) D-Dimer ABG pH POC ABG pCO2 POC ABG pO2 ABG pO2 ABG HCO3 ABG O2 Saturation ABG Base Excess ABG Oxyhemoglobin ABG Sodium ABG Chloride ABG Glucose Oxyhemoglobin Carboxyhemoglobin Sodium Potassium Chloride Carbon Dioxide BUN Creatinine Glucose POC Glucose 200 H 147 H 118 H Hemoglobin A1c Magnesium Ferritin AST ALT Alkaline Phosphatase Lactate Dehydrogenase C-Reactive Protein Total Protein Albumin Arterial Blood Glucose Coronavirus (PCR) 07/17/21 07/17/21 07/17/21 11:38 16:24 21:13 WBC MCV MCH MCHC RDW Lymph % (Auto) [place] % (Auto) Eos % (Auto) Lymph # (Auto) [place] # (Auto) Eos # (Auto) Baso # (Auto) Seg Neutrophils % Seg Neuts % (Manual) Lymphocytes % (Manual) Seg Neutrophils # Seg Neutrophils # Man Lymphocytes # (Manual) D-Dimer ABG pH POC ABG pCO2 POC ABG pO2 ABG pO2 ABG HCO3 ABG O2 Saturation ABG Base Excess ABG Oxyhemoglobin ABG Sodium ABG Chloride ABG Glucose Oxyhemoglobin Carboxyhemoglobin Sodium Potassium Chloride Carbon Dioxide BUN Creatinine Glucose POC Glucose 151 H 268 H 115 H Hemoglobin A1c Magnesium Ferritin AST ALT Alkaline Phosphatase Lactate Dehydrogenase C-Reactive Protein Total Protein Albumin Arterial Blood Glucose Coronavirus (PCR) 07/18/21 07/18/21 07/18/21 07:58 12:29 20:24 WBC MCV MCH MCHC RDW Lymph % (Auto) [place] % (Auto) Eos % (Auto) Lymph # (Auto) [place] # (Auto) Eos # (Auto) Baso # (Auto) Seg Neutrophils % Seg Neuts % (Manual) Lymphocytes % (Manual) Seg Neutrophils # Seg Neutrophils # Man Lymphocytes # (Manual) D-Dimer ABG pH POC ABG pCO2 POC ABG pO2 ABG pO2 ABG HCO3 ABG O2 Saturation ABG Base Excess ABG Oxyhemoglobin ABG Sodium ABG Chloride ABG Glucose Oxyhemoglobin Carboxyhemoglobin Sodium Potassium Chloride Carbon Dioxide BUN Creatinine Glucose POC Glucose 135 H 139 H 130 H Hemoglobin A1c Magnesium Ferritin AST ALT Alkaline Phosphatase Lactate Dehydrogenase C-Reactive Protein Total Protein Albumin Arterial Blood Glucose Coronavirus (PCR) 07/19/21 07/19/21 07/19/21 06:55 06:55 07:54 WBC 14.5 H MCV MCH MCHC RDW 17.3 H Lymph % (Auto) 9.6 L [place] % (Auto) Eos % (Auto) Lymph # (Auto) [place] # (Auto) Eos # (Auto) 0.6 H Baso # (Auto) Seg Neutrophils % 80.3 H Seg Neuts % (Manual) Lymphocytes % (Manual) Seg Neutrophils # 11.7 H Seg Neutrophils # Man Lymphocytes # (Manual) D-Dimer ABG pH POC ABG pCO2 67.9 H POC ABG pO2 131.0 H ABG pO2 ABG HCO3 ABG O2 Saturation ABG Base Excess ABG Oxyhemoglobin ABG Sodium ABG Chloride 97.0 L ABG Glucose 133 H Oxyhemoglobin Carboxyhemoglobin Sodium Potassium Chloride 95.3 L Carbon Dioxide 35 H BUN Creatinine < 0.2 L Glucose 138 H POC Glucose Hemoglobin A1c Magnesium Ferritin AST ALT Alkaline Phosphatase Lactate Dehydrogenase C-Reactive Protein Total Protein Albumin Arterial Blood Glucose 133 H Coronavirus (PCR) 07/19/21 07/19/21 07/19/21 08:10 11:43 17:04 WBC MCV MCH MCHC RDW Lymph % (Auto) [place] % (Auto) Eos % (Auto) Lymph # (Auto) [place] # (Auto) Eos # (Auto) Baso # (Auto) Seg Neutrophils % Seg Neuts % (Manual) Lymphocytes % (Manual) Seg Neutrophils # Seg Neutrophils # Man Lymphocytes # (Manual) D-Dimer ABG pH POC ABG pCO2 POC ABG pO2 ABG pO2 ABG HCO3 ABG O2 Saturation ABG Base Excess ABG Oxyhemoglobin ABG Sodium ABG Chloride ABG Glucose Oxyhemoglobin Carboxyhemoglobin Sodium Potassium Chloride Carbon Dioxide BUN Creatinine Glucose POC Glucose 129 H 126 H 108 H Hemoglobin A1c Magnesium Ferritin AST ALT Alkaline Phosphatase Lactate Dehydrogenase C-Reactive Protein Total Protein Albumin Arterial Blood Glucose Coronavirus (PCR) 07/19/21 07/20/21 07/20/21 21:10 04:00 04:00 WBC MCV MCH MCHC RDW 17.0 H Lymph % (Auto) [place] % (Auto) 8.9 H Eos % (Auto) 6.3 H Lymph # (Auto) [place] # (Auto) 0.9 H Eos # (Auto) 0.6 H Baso # (Auto) Seg Neutrophils % 70.2 H Seg Neuts % (Manual) Lymphocytes % (Manual) Seg Neutrophils # Seg Neutrophils # Man Lymphocytes # (Manual) D-Dimer ABG pH POC ABG pCO2 POC ABG pO2 ABG pO2 ABG HCO3 ABG O2 Saturation ABG Base Excess ABG Oxyhemoglobin ABG Sodium ABG Chloride ABG Glucose Oxyhemoglobin Carboxyhemoglobin Sodium Potassium Chloride 96.7 L Carbon Dioxide 36 H BUN Creatinine 0.2 L Glucose 102 H POC Glucose 109 H Hemoglobin A1c Magnesium Ferritin AST ALT Alkaline Phosphatase Lactate Dehydrogenase C-Reactive Protein Total Protein Albumin 3.2 L Arterial Blood Glucose Coronavirus (PCR) 07/20/21 07/20/21 07/20/21 11:15 15:34 17:01 WBC MCV MCH MCHC RDW Lymph % (Auto) [place] % (Auto) Eos % (Auto) Lymph # (Auto) [place] # (Auto) Eos # (Auto) Baso # (Auto) Seg Neutrophils % Seg Neuts % (Manual) Lymphocytes % (Manual) Seg Neutrophils # Seg Neutrophils # Man Lymphocytes # (Manual) D-Dimer ABG pH POC ABG pCO2 POC ABG pO2 ABG pO2 ABG HCO3 ABG O2 Saturation ABG Base Excess ABG Oxyhemoglobin ABG Sodium ABG Chloride ABG Glucose Oxyhemoglobin Carboxyhemoglobin Sodium Potassium Chloride Carbon Dioxide BUN Creatinine Glucose POC Glucose 109 H 152 H 125 H Hemoglobin A1c Magnesium Ferritin AST ALT Alkaline Phosphatase Lactate Dehydrogenase C-Reactive Protein Total Protein Albumin Arterial Blood Glucose Coronavirus (PCR) 07/20/21 07/21/21 07/21/21 21:00 04:48 04:48 WBC 12.8 H MCV MCH MCHC RDW 16.8 H Lymph % (Auto) 9.3 L [place] % (Auto) Eos % (Auto) Lymph # (Auto) [place] # (Auto) 0.9 H Eos # (Auto) Baso # (Auto) Seg Neutrophils % 81.1 H Seg Neuts % (Manual) Lymphocytes % (Manual) Seg Neutrophils # 10.4 H Seg Neutrophils # Man Lymphocytes # (Manual) D-Dimer ABG pH POC ABG pCO2 POC ABG pO2 ABG pO2 ABG HCO3 ABG O2 Saturation ABG Base Excess ABG Oxyhemoglobin ABG Sodium ABG Chloride ABG Glucose Oxyhemoglobin Carboxyhemoglobin Sodium Potassium Chloride 95.4 L Carbon Dioxide 33 H BUN 6 L Creatinine < 0.2 L Glucose 155 H POC Glucose 211 H Hemoglobin A1c Magnesium 1.60 L Ferritin AST ALT Alkaline Phosphatase Lactate Dehydrogenase C-Reactive Protein Total Protein Albumin Arterial Blood Glucose Coronavirus (PCR) 07/21/21 07/21/21 07/21/21 07:52 11:05 17:01 WBC MCV MCH MCHC RDW Lymph % (Auto) [place] % (Auto) Eos % (Auto) Lymph # (Auto) [place] # (Auto) Eos # (Auto) Baso # (Auto) Seg Neutrophils % Seg Neuts % (Manual) Lymphocytes % (Manual) Seg Neutrophils # Seg Neutrophils # Man Lymphocytes # (Manual) D-Dimer ABG pH POC ABG pCO2 POC ABG pO2 ABG pO2 ABG HCO3 ABG O2 Saturation ABG Base Excess ABG Oxyhemoglobin ABG Sodium ABG Chloride ABG Glucose Oxyhemoglobin Carboxyhemoglobin Sodium Potassium Chloride Carbon Dioxide BUN Creatinine Glucose POC Glucose 116 H 207 H 133 H Hemoglobin A1c Magnesium Ferritin AST ALT Alkaline Phosphatase Lactate Dehydrogenase C-Reactive Protein Total Protein Albumin Arterial Blood Glucose Coronavirus (PCR) 07/21/21 07/22/21 07/22/21 21:17 07:55 07:55 WBC MCV MCH MCHC RDW 16.5 H Lymph % (Auto) [place] % (Auto) 8.6 H Eos % (Auto) Lymph # (Auto) [place] # (Auto) Eos # (Auto) Baso # (Auto) Seg Neutrophils % 72.3 H Seg Neuts % (Manual) Lymphocytes % (Manual) Seg Neutrophils # Seg Neutrophils # Man Lymphocytes # (Manual) D-Dimer ABG pH POC ABG pCO2 POC ABG pO2 ABG pO2 ABG HCO3 ABG O2 Saturation ABG Base Excess ABG Oxyhemoglobin ABG Sodium ABG Chloride ABG Glucose Oxyhemoglobin Carboxyhemoglobin Sodium Potassium Chloride 94.6 L Carbon Dioxide 42 H* D BUN 5 L Creatinine < 0.2 L Glucose POC Glucose 152 H Hemoglobin A1c Magnesium Ferritin AST ALT Alkaline Phosphatase Lactate Dehydrogenase C-Reactive Protein Total Protein Albumin Arterial Blood Glucose Coronavirus (PCR) 07/22/21 07/22/21 07/22/21 11:25 12:05 15:40 WBC MCV MCH MCHC RDW Lymph % (Auto) [place] % (Auto) Eos % (Auto) Lymph # (Auto) [place] # (Auto) Eos # (Auto) Baso # (Auto) Seg Neutrophils % Seg Neuts % (Manual) Lymphocytes % (Manual) Seg Neutrophils # Seg Neutrophils # Man Lymphocytes # (Manual) D-Dimer ABG pH 7.338 L POC ABG pCO2 POC ABG pO2 ABG pO2 66.1 L ABG HCO3 45.0 H ABG O2 Saturation 94.2 L ABG Base Excess 15.2 H ABG Oxyhemoglobin ABG Sodium ABG Chloride ABG Glucose Oxyhemoglobin 91.9 L Carboxyhemoglobin Sodium Potassium Chloride Carbon Dioxide BUN Creatinine Glucose POC Glucose 146 H 219 H Hemoglobin A1c Magnesium Ferritin AST ALT Alkaline Phosphatase Lactate Dehydrogenase C-Reactive Protein Total Protein Albumin Arterial Blood Glucose Coronavirus (PCR) 07/22/21 07/23/21 07/23/21 21:26 04:35 04:35 WBC MCV 98 H MCH MCHC RDW 16.2 H Lymph % (Auto) 7.9 L [place] % (Auto) Eos % (Auto) Lymph # (Auto) 0.9 L [place] # (Auto) Eos # (Auto) Baso # (Auto) Seg Neutrophils % 85.3 H Seg Neuts % (Manual) Lymphocytes % (Manual) Seg Neutrophils # 9.2 H Seg Neutrophils # Man Lymphocytes # (Manual) D-Dimer ABG pH POC ABG pCO2 POC ABG pO2 ABG pO2 ABG HCO3 ABG O2 Saturation ABG Base Excess ABG Oxyhemoglobin ABG Sodium ABG Chloride ABG Glucose Oxyhemoglobin Carboxyhemoglobin Sodium Potassium Chloride 93.9 L Carbon Dioxide 44 H* BUN Creatinine < 0.2 L Glucose 149 H POC Glucose 131 H Hemoglobin A1c Magnesium Ferritin AST ALT Alkaline Phosphatase Lactate Dehydrogenase C-Reactive Protein Total Protein Albumin Arterial Blood Glucose Coronavirus (PCR) 07/23/21 07/23/21 07/23/21 07:20 11:34 16:11 WBC MCV MCH MCHC RDW Lymph % (Auto) [place] % (Auto) Eos % (Auto) Lymph # (Auto) [place] # (Auto) Eos # (Auto) Baso # (Auto) Seg Neutrophils % Seg Neuts % (Manual) Lymphocytes % (Manual) Seg Neutrophils # Seg Neutrophils # Man Lymphocytes # (Manual) D-Dimer ABG pH POC ABG pCO2 POC ABG pO2 ABG pO2 ABG HCO3 ABG O2 Saturation ABG Base Excess ABG Oxyhemoglobin ABG Sodium ABG Chloride ABG Glucose Oxyhemoglobin Carboxyhemoglobin Sodium Potassium Chloride Carbon Dioxide BUN Creatinine Glucose POC Glucose 116 H 172 H 110 H Hemoglobin A1c Magnesium Ferritin AST ALT Alkaline Phosphatase Lactate Dehydrogenase C-Reactive Protein Total Protein Albumin Arterial Blood Glucose Coronavirus (PCR) 07/23/21 07/23/21 07/24/21 18:11 21:33 04:10 WBC MCV MCH MCHC RDW Lymph % (Auto) [place] % (Auto) Eos % (Auto) Lymph # (Auto) [place] # (Auto) Eos # (Auto) Baso # (Auto) Seg Neutrophils % Seg Neuts % (Manual) Lymphocytes % (Manual) Seg Neutrophils # Seg Neutrophils # Man Lymphocytes # (Manual) D-Dimer ABG pH POC ABG pCO2 78.3 H POC ABG pO2 80.7 L ABG pO2 ABG HCO3 ABG O2 Saturation ABG Base Excess ABG Oxyhemoglobin ABG Sodium 134.9 L ABG Chloride 89.0 L ABG Glucose 200 H Oxyhemoglobin Carboxyhemoglobin Sodium Potassium 3.5 L D Chloride 92.4 L Carbon Dioxide 42 H* BUN Creatinine < 0.2 L Glucose 123 H POC Glucose 108 H Hemoglobin A1c Magnesium Ferritin AST ALT Alkaline Phosphatase Lactate Dehydrogenase C-Reactive Protein Total Protein Albumin Arterial Blood Glucose 200 H Coronavirus (PCR) 07/24/21 07/24/21 07/24/21 11:01 16:56 22:06 WBC MCV MCH MCHC RDW Lymph % (Auto) [place] % (Auto) Eos % (Auto) Lymph # (Auto) [place] # (Auto) Eos # (Auto) Baso # (Auto) Seg Neutrophils % Seg Neuts % (Manual) Lymphocytes % (Manual) Seg Neutrophils # Seg Neutrophils # Man Lymphocytes # (Manual) D-Dimer ABG pH POC ABG pCO2 POC ABG pO2 ABG pO2 ABG HCO3 ABG O2 Saturation ABG Base Excess ABG Oxyhemoglobin ABG Sodium ABG Chloride ABG Glucose Oxyhemoglobin Carboxyhemoglobin Sodium Potassium Chloride Carbon Dioxide BUN Creatinine Glucose POC Glucose 171 H 111 H 136 H Hemoglobin A1c Magnesium Ferritin AST ALT Alkaline Phosphatase Lactate Dehydrogenase C-Reactive Protein Total Protein Albumin Arterial Blood Glucose Coronavirus (PCR) 07/25/21 07/25/21 07/25/21 07:40 10:59 11:58 WBC MCV MCH MCHC RDW Lymph % (Auto) [place] % (Auto) Eos % (Auto) Lymph # (Auto) [place] # (Auto) Eos # (Auto) Baso # (Auto) Seg Neutrophils % Seg Neuts % (Manual) Lymphocytes % (Manual) Seg Neutrophils # Seg Neutrophils # Man Lymphocytes # (Manual) D-Dimer ABG pH POC ABG pCO2 POC ABG pO2 ABG pO2 ABG HCO3 ABG O2 Saturation ABG Base Excess ABG Oxyhemoglobin ABG Sodium ABG Chloride ABG Glucose Oxyhemoglobin Carboxyhemoglobin Sodium Potassium Chloride 88.6 L Carbon Dioxide 43 H* BUN Creatinine 0.2 L Glucose 180 H POC Glucose 120 H 153 H Hemoglobin A1c Magnesium Ferritin AST ALT Alkaline Phosphatase Lactate Dehydrogenase C-Reactive Protein Total Protein Albumin Arterial Blood Glucose Coronavirus (PCR) 07/25/21 07/25/21 07/26/21 16:03 20:18 09:56 WBC MCV MCH MCHC RDW Lymph % (Auto) [place] % (Auto) Eos % (Auto) Lymph # (Auto) [place] # (Auto) Eos # (Auto) Baso # (Auto) Seg Neutrophils % Seg Neuts % (Manual) Lymphocytes % (Manual) Seg Neutrophils # Seg Neutrophils # Man Lymphocytes # (Manual) D-Dimer ABG pH POC ABG pCO2 POC ABG pO2 ABG pO2 ABG HCO3 ABG O2 Saturation ABG Base Excess ABG Oxyhemoglobin ABG Sodium ABG Chloride ABG Glucose Oxyhemoglobin Carboxyhemoglobin Sodium Potassium Chloride 91.3 L Carbon Dioxide 45 H* BUN Creatinine < 0.2 L Glucose 128 H POC Glucose 143 H 133 H Hemoglobin A1c Magnesium Ferritin AST ALT Alkaline Phosphatase Lactate Dehydrogenase C-Reactive Protein Total Protein Albumin 3.2 L Arterial Blood Glucose Coronavirus (PCR) 07/26/21 07/26/21 07/27/21 17:56 21:24 07:10 WBC MCV MCH MCHC RDW Lymph % (Auto) [place] % (Auto) Eos % (Auto) Lymph # (Auto) [place] # (Auto) Eos # (Auto) Baso # (Auto) Seg Neutrophils % Seg Neuts % (Manual) Lymphocytes % (Manual) Seg Neutrophils # Seg Neutrophils # Man Lymphocytes # (Manual) D-Dimer ABG pH POC ABG pCO2 POC ABG pO2 ABG pO2 ABG HCO3 ABG O2 Saturation ABG Base Excess ABG Oxyhemoglobin ABG Sodium ABG Chloride ABG Glucose Oxyhemoglobin Carboxyhemoglobin Sodium Potassium Chloride Carbon Dioxide BUN Creatinine Glucose POC Glucose 170 H 122 H 119 H Hemoglobin A1c Magnesium Ferritin AST ALT Alkaline Phosphatase Lactate Dehydrogenase C-Reactive Protein Total Protein Albumin Arterial Blood Glucose Coronavirus (PCR) 07/27/21 07/27/21 07/28/21 11:44 21:31 07:30 WBC MCV MCH MCHC RDW Lymph % (Auto) [place] % (Auto) Eos % (Auto) Lymph # (Auto) [place] # (Auto) Eos # (Auto) Baso # (Auto) Seg Neutrophils % Seg Neuts % (Manual) Lymphocytes % (Manual) Seg Neutrophils # Seg Neutrophils # Man Lymphocytes # (Manual) D-Dimer ABG pH POC ABG pCO2 POC ABG pO2 ABG pO2 ABG HCO3 ABG O2 Saturation ABG Base Excess ABG Oxyhemoglobin ABG Sodium ABG Chloride ABG Glucose Oxyhemoglobin Carboxyhemoglobin Sodium Potassium 3.4 L D Chloride 91.4 L Carbon Dioxide 39 H BUN Creatinine < 0.2 L Glucose 140 H POC Glucose 176 H 162 H Hemoglobin A1c Magnesium Ferritin AST ALT Alkaline Phosphatase Lactate Dehydrogenase C-Reactive Protein Total Protein Albumin Arterial Blood Glucose Coronavirus (PCR) 07/28/21 07/28/21 07/28/21 08:43 12:25 16:40 WBC MCV MCH MCHC RDW Lymph % (Auto) [place] % (Auto) Eos % (Auto) Lymph # (Auto) [place] # (Auto) Eos # (Auto) Baso # (Auto) Seg Neutrophils % Seg Neuts % (Manual) Lymphocytes % (Manual) Seg Neutrophils # Seg Neutrophils # Man Lymphocytes # (Manual) D-Dimer ABG pH POC ABG pCO2 POC ABG pO2 ABG pO2 ABG HCO3 ABG O2 Saturation ABG Base Excess ABG Oxyhemoglobin ABG Sodium ABG Chloride ABG Glucose Oxyhemoglobin Carboxyhemoglobin Sodium Potassium Chloride Carbon Dioxide BUN Creatinine Glucose POC Glucose 122 H 162 H 234 H Hemoglobin A1c Magnesium Ferritin AST ALT Alkaline Phosphatase Lactate Dehydrogenase C-Reactive Protein Total Protein Albumin Arterial Blood Glucose Coronavirus (PCR) 07/28/21 07/29/21 07/29/21 21:27 04:40 09:51 WBC MCV MCH MCHC RDW Lymph % (Auto) [place] % (Auto) Eos % (Auto) Lymph # (Auto) [place] # (Auto) Eos # (Auto) Baso # (Auto) Seg Neutrophils % Seg Neuts % (Manual) Lymphocytes % (Manual) Seg Neutrophils # Seg Neutrophils # Man Lymphocytes # (Manual) D-Dimer ABG pH POC ABG pCO2 POC ABG pO2 ABG pO2 ABG HCO3 ABG O2 Saturation ABG Base Excess ABG Oxyhemoglobin ABG Sodium ABG Chloride ABG Glucose Oxyhemoglobin Carboxyhemoglobin Sodium Potassium 3.4 L Chloride 92.3 L Carbon Dioxide 40 H BUN Creatinine < 0.2 L Glucose 125 H POC Glucose 155 H 112 H Hemoglobin A1c Magnesium Ferritin AST ALT Alkaline Phosphatase Lactate Dehydrogenase C-Reactive Protein Total Protein Albumin Arterial Blood Glucose Coronavirus (PCR) 07/29/21 07/29/21 07/29/21 12:03 16:39 21:28 WBC MCV MCH MCHC RDW Lymph % (Auto) [place] % (Auto) Eos % (Auto) Lymph # (Auto) [place] # (Auto) Eos # (Auto) Baso # (Auto) Seg Neutrophils % Seg Neuts % (Manual) Lymphocytes % (Manual) Seg Neutrophils # Seg Neutrophils # Man Lymphocytes # (Manual) D-Dimer ABG pH POC ABG pCO2 POC ABG pO2 ABG pO2 ABG HCO3 ABG O2 Saturation ABG Base Excess ABG Oxyhemoglobin ABG Sodium ABG Chloride ABG Glucose Oxyhemoglobin Carboxyhemoglobin Sodium Potassium Chloride Carbon Dioxide BUN Creatinine Glucose POC Glucose 188 H 141 H 130 H Hemoglobin A1c Magnesium Ferritin AST ALT Alkaline Phosphatase Lactate Dehydrogenase C-Reactive Protein Total Protein Albumin Arterial Blood Glucose Coronavirus (PCR) 07/30/21 07/30/21 07/30/21 08:37 11:56 22:25 WBC MCV MCH MCHC RDW Lymph % (Auto) [place] % (Auto) Eos % (Auto) Lymph # (Auto) [place] # (Auto) Eos # (Auto) Baso # (Auto) Seg Neutrophils % Seg Neuts % (Manual) Lymphocytes % (Manual) Seg Neutrophils # Seg Neutrophils # Man Lymphocytes # (Manual) D-Dimer ABG pH POC ABG pCO2 POC ABG pO2 ABG pO2 ABG HCO3 ABG O2 Saturation ABG Base Excess ABG Oxyhemoglobin ABG Sodium ABG Chloride ABG Glucose Oxyhemoglobin Carboxyhemoglobin Sodium Potassium Chloride Carbon Dioxide BUN Creatinine Glucose POC Glucose 133 H 156 H 118 H Hemoglobin A1c Magnesium Ferritin AST ALT Alkaline Phosphatase Lactate Dehydrogenase C-Reactive Protein Total Protein Albumin Arterial Blood Glucose Coronavirus (PCR) 07/31/21 07/31/21 07/31/21 06:43 11:55 16:39 WBC MCV MCH MCHC RDW Lymph % (Auto) [place] % (Auto) Eos % (Auto) Lymph # (Auto) [place] # (Auto) Eos # (Auto) Baso # (Auto) Seg Neutrophils % Seg Neuts % (Manual) Lymphocytes % (Manual) Seg Neutrophils # Seg Neutrophils # Man Lymphocytes # (Manual) D-Dimer ABG pH POC ABG pCO2 POC ABG pO2 ABG pO2 ABG HCO3 ABG O2 Saturation ABG Base Excess ABG Oxyhemoglobin ABG Sodium ABG Chloride ABG Glucose Oxyhemoglobin Carboxyhemoglobin Sodium Potassium Chloride Carbon Dioxide BUN Creatinine Glucose POC Glucose 115 H 114 H 185 H Hemoglobin A1c Magnesium Ferritin AST ALT Alkaline Phosphatase Lactate Dehydrogenase C-Reactive Protein Total Protein Albumin Arterial Blood Glucose Coronavirus (PCR) 07/31/21 08/01/21 08/01/21 23:22 11:35 15:34 WBC MCV MCH MCHC RDW Lymph % (Auto) [place] % (Auto) Eos % (Auto) Lymph # (Auto) [place] # (Auto) Eos # (Auto) Baso # (Auto) Seg Neutrophils % Seg Neuts % (Manual) Lymphocytes % (Manual) Seg Neutrophils # Seg Neutrophils # Man Lymphocytes # (Manual) D-Dimer ABG pH POC ABG pCO2 POC ABG pO2 ABG pO2 ABG HCO3 ABG O2 Saturation ABG Base Excess ABG Oxyhemoglobin ABG Sodium ABG Chloride ABG Glucose Oxyhemoglobin Carboxyhemoglobin Sodium Potassium Chloride Carbon Dioxide BUN Creatinine Glucose POC Glucose 213 H 122 H 142 H Hemoglobin A1c Magnesium Ferritin AST ALT Alkaline Phosphatase Lactate Dehydrogenase C-Reactive Protein Total Protein Albumin Arterial Blood Glucose Coronavirus (PCR) 08/01/21 08/02/21 08/02/21 22:15 07:41 11:58 WBC MCV MCH MCHC RDW Lymph % (Auto) [place] % (Auto) Eos % (Auto) Lymph # (Auto) [place] # (Auto) Eos # (Auto) Baso # (Auto) Seg Neutrophils % Seg Neuts % (Manual) Lymphocytes % (Manual) Seg Neutrophils # Seg Neutrophils # Man Lymphocytes # (Manual) D-Dimer ABG pH POC ABG pCO2 POC ABG pO2 ABG pO2 ABG HCO3 ABG O2 Saturation ABG Base Excess ABG Oxyhemoglobin ABG Sodium ABG Chloride ABG Glucose Oxyhemoglobin Carboxyhemoglobin Sodium Potassium Chloride Carbon Dioxide BUN Creatinine Glucose POC Glucose 121 H 109 H 136 H Hemoglobin A1c Magnesium Ferritin AST ALT Alkaline Phosphatase Lactate Dehydrogenase C-Reactive Protein Total Protein Albumin Arterial Blood Glucose Coronavirus (PCR) 08/02/21 08/03/21 08/03/21 21:19 07:47 11:18 WBC MCV MCH MCHC RDW Lymph % (Auto) [place] % (Auto) Eos % (Auto) Lymph # (Auto) [place] # (Auto) Eos # (Auto) Baso # (Auto) Seg Neutrophils % Seg Neuts % (Manual) Lymphocytes % (Manual) Seg Neutrophils # Seg Neutrophils # Man Lymphocytes # (Manual) D-Dimer ABG pH POC ABG pCO2 POC ABG pO2 ABG pO2 ABG HCO3 ABG O2 Saturation ABG Base Excess ABG Oxyhemoglobin ABG Sodium ABG Chloride ABG Glucose Oxyhemoglobin Carboxyhemoglobin Sodium Potassium Chloride Carbon Dioxide BUN Creatinine Glucose POC Glucose 159 H 111 H 202 H Hemoglobin A1c Magnesium Ferritin AST ALT Alkaline Phosphatase Lactate Dehydrogenase C-Reactive Protein Total Protein Albumin Arterial Blood Glucose Coronavirus (PCR) 08/03/21 08/03/21 08/04/21 16:47 21:26 07:57 WBC MCV MCH MCHC RDW Lymph % (Auto) [place] % (Auto) Eos % (Auto) Lymph # (Auto) [place] # (Auto) Eos # (Auto) Baso # (Auto) Seg Neutrophils % Seg Neuts % (Manual) Lymphocytes % (Manual) Seg Neutrophils # Seg Neutrophils # Man Lymphocytes # (Manual) D-Dimer ABG pH POC ABG pCO2 POC ABG pO2 ABG pO2 ABG HCO3 ABG O2 Saturation ABG Base Excess ABG Oxyhemoglobin ABG Sodium ABG Chloride ABG Glucose Oxyhemoglobin Carboxyhemoglobin Sodium Potassium Chloride Carbon Dioxide BUN Creatinine Glucose POC Glucose 133 H 148 H 129 H Hemoglobin A1c Magnesium Ferritin AST ALT Alkaline Phosphatase Lactate Dehydrogenase C-Reactive Protein Total Protein Albumin Arterial Blood Glucose Coronavirus (PCR) 08/04/21 08/04/21 08/04/21 08:05 11:42 16:53 WBC MCV MCH MCHC RDW Lymph % (Auto) [place] % (Auto) Eos % (Auto) Lymph # (Auto) [place] # (Auto) Eos # (Auto) Baso # (Auto) Seg Neutrophils % Seg Neuts % (Manual) Lymphocytes % (Manual) Seg Neutrophils # Seg Neutrophils # Man Lymphocytes # (Manual) D-Dimer ABG pH POC ABG pCO2 POC ABG pO2 ABG pO2 ABG HCO3 ABG O2 Saturation ABG Base Excess ABG Oxyhemoglobin ABG Sodium ABG Chloride ABG Glucose Oxyhemoglobin Carboxyhemoglobin Sodium Potassium Chloride Carbon Dioxide BUN Creatinine Glucose POC Glucose 145 H 187 H 112 H Hemoglobin A1c Magnesium Ferritin AST ALT Alkaline Phosphatase Lactate Dehydrogenase C-Reactive Protein Total Protein Albumin Arterial Blood Glucose Coronavirus (PCR) 08/04/21 08/05/21 08/05/21 21:27 07:35 11:19 WBC MCV MCH MCHC RDW Lymph % (Auto) [place] % (Auto) Eos % (Auto) Lymph # (Auto) [place] # (Auto) Eos # (Auto) Baso # (Auto) Seg Neutrophils % Seg Neuts % (Manual) Lymphocytes % (Manual) Seg Neutrophils # Seg Neutrophils # Man Lymphocytes # (Manual) D-Dimer ABG pH POC ABG pCO2 POC ABG pO2 ABG pO2 ABG HCO3 ABG O2 Saturation ABG Base Excess ABG Oxyhemoglobin ABG Sodium ABG Chloride ABG Glucose Oxyhemoglobin Carboxyhemoglobin Sodium Potassium Chloride Carbon Dioxide BUN Creatinine Glucose POC Glucose 189 H 146 H 244 H Hemoglobin A1c Magnesium Ferritin AST ALT Alkaline Phosphatase Lactate Dehydrogenase C-Reactive Protein Total Protein Albumin Arterial Blood Glucose Coronavirus (PCR) 08/05/21 08/06/21 08/06/21 22:16 07:29 11:16 WBC MCV MCH MCHC RDW Lymph % (Auto) [place] % (Auto) Eos % (Auto) Lymph # (Auto) [place] # (Auto) Eos # (Auto) Baso # (Auto) Seg Neutrophils % Seg Neuts % (Manual) Lymphocytes % (Manual) Seg Neutrophils # Seg Neutrophils # Man Lymphocytes # (Manual) D-Dimer ABG pH POC ABG pCO2 POC ABG pO2 ABG pO2 ABG HCO3 ABG O2 Saturation ABG Base Excess ABG Oxyhemoglobin ABG Sodium ABG Chloride ABG Glucose Oxyhemoglobin Carboxyhemoglobin Sodium Potassium Chloride Carbon Dioxide BUN Creatinine Glucose POC Glucose 122 H 128 H 228 H Hemoglobin A1c Magnesium Ferritin AST ALT Alkaline Phosphatase Lactate Dehydrogenase C-Reactive Protein Total Protein Albumin Arterial Blood Glucose Coronavirus (PCR) 08/06/21 08/07/21 08/07/21 21:13 07:17 11:54 WBC MCV MCH MCHC RDW Lymph % (Auto) [place] % (Auto) Eos % (Auto) Lymph # (Auto) [place] # (Auto) Eos # (Auto) Baso # (Auto) Seg Neutrophils % Seg Neuts % (Manual) Lymphocytes % (Manual) Seg Neutrophils # Seg Neutrophils # Man Lymphocytes # (Manual) D-Dimer ABG pH POC ABG pCO2 POC ABG pO2 ABG pO2 ABG HCO3 ABG O2 Saturation ABG Base Excess ABG Oxyhemoglobin ABG Sodium ABG Chloride ABG Glucose Oxyhemoglobin Carboxyhemoglobin Sodium Potassium Chloride Carbon Dioxide BUN Creatinine Glucose POC Glucose 198 H 134 H 107 H Hemoglobin A1c Magnesium Ferritin AST ALT Alkaline Phosphatase Lactate Dehydrogenase C-Reactive Protein Total Protein Albumin Arterial Blood Glucose Coronavirus (PCR) 08/07/21 08/07/21 08/08/21 16:26 21:15 04:51 WBC MCV MCH MCHC RDW Lymph % (Auto) [place] % (Auto) Eos % (Auto) Lymph # (Auto) [place] # (Auto) Eos # (Auto) Baso # (Auto) Seg Neutrophils % Seg Neuts % (Manual) Lymphocytes % (Manual) Seg Neutrophils # Seg Neutrophils # Man Lymphocytes # (Manual) D-Dimer ABG pH POC ABG pCO2 POC ABG pO2 ABG pO2 ABG HCO3 ABG O2 Saturation ABG Base Excess ABG Oxyhemoglobin ABG Sodium ABG Chloride ABG Glucose Oxyhemoglobin Carboxyhemoglobin Sodium Potassium Chloride 92.9 L Carbon Dioxide 39 H BUN Creatinine < 0.2 L Glucose 105 H POC Glucose 144 H 228 H Hemoglobin A1c Magnesium Ferritin AST ALT Alkaline Phosphatase Lactate Dehydrogenase C-Reactive Protein Total Protein Albumin Arterial Blood Glucose Coronavirus (PCR) 08/08/21 08/08/21 08/08/21 11:40 17:09 21:22 WBC MCV MCH MCHC RDW Lymph % (Auto) [place] % (Auto) Eos % (Auto) Lymph # (Auto) [place] # (Auto) Eos # (Auto) Baso # (Auto) Seg Neutrophils % Seg Neuts % (Manual) Lymphocytes % (Manual) Seg Neutrophils # Seg Neutrophils # Man Lymphocytes # (Manual) D-Dimer ABG pH POC ABG pCO2 POC ABG pO2 ABG pO2 ABG HCO3 ABG O2 Saturation ABG Base Excess ABG Oxyhemoglobin ABG Sodium ABG Chloride ABG Glucose Oxyhemoglobin Carboxyhemoglobin Sodium Potassium Chloride Carbon Dioxide BUN Creatinine Glucose POC Glucose 137 H 137 H 152 H Hemoglobin A1c Magnesium Ferritin AST ALT Alkaline Phosphatase Lactate Dehydrogenase C-Reactive Protein Total Protein Albumin Arterial Blood Glucose Coronavirus (PCR) 08/09/21 08/09/21 08/09/21 07:42 12:26 16:41 WBC MCV MCH MCHC RDW Lymph % (Auto) [place] % (Auto) Eos % (Auto) Lymph # (Auto) [place] # (Auto) Eos # (Auto) Baso # (Auto) Seg Neutrophils % Seg Neuts % (Manual) Lymphocytes % (Manual) Seg Neutrophils # Seg Neutrophils # Man Lymphocytes # (Manual) D-Dimer ABG pH POC ABG pCO2 POC ABG pO2 ABG pO2 ABG HCO3 ABG O2 Saturation ABG Base Excess ABG Oxyhemoglobin ABG Sodium ABG Chloride ABG Glucose Oxyhemoglobin Carboxyhemoglobin Sodium Potassium Chloride Carbon Dioxide BUN Creatinine Glucose POC Glucose 120 H 132 H 116 H Hemoglobin A1c Magnesium Ferritin AST ALT Alkaline Phosphatase Lactate Dehydrogenase C-Reactive Protein Total Protein Albumin Arterial Blood Glucose Coronavirus (PCR) 11/08/10/21 08/10/21 21:13 07:41 11:33 WBC MCV MCH MCHC RDW Lymph % (Auto) [place] % (Auto) Eos % (Auto) Lymph # (Auto) [place] # (Auto) Eos # (Auto) Baso # (Auto) Seg Neutrophils % Seg Neuts % (Manual) Lymphocytes % (Manual) Seg Neutrophils # Seg Neutrophils # Man Lymphocytes # (Manual) D-Dimer ABG pH POC ABG pCO2 POC ABG pO2 ABG pO2 ABG HCO3 ABG O2 Saturation ABG Base Excess ABG Oxyhemoglobin ABG Sodium ABG Chloride ABG Glucose Oxyhemoglobin Carboxyhemoglobin Sodium Potassium Chloride Carbon Dioxide BUN Creatinine Glucose POC Glucose 205 H 125 H 125 H Hemoglobin A1c Magnesium Ferritin AST ALT Alkaline Phosphatase Lactate Dehydrogenase C-Reactive Protein Total Protein Albumin Arterial Blood Glucose Coronavirus (PCR) 08/10/21 08/10/21 08/11/21 15:21 21:07 07:22 WBC MCV MCH MCHC RDW Lymph % (Auto) [place] % (Auto) Eos % (Auto) Lymph # (Auto) [place] # (Auto) Eos # (Auto) Baso # (Auto) Seg Neutrophils % Seg Neuts % (Manual) Lymphocytes % (Manual) Seg Neutrophils # Seg Neutrophils # Man Lymphocytes # (Manual) D-Dimer ABG pH POC ABG pCO2 POC ABG pO2 ABG pO2 ABG HCO3 ABG O2 Saturation ABG Base Excess ABG Oxyhemoglobin ABG Sodium ABG Chloride ABG Glucose Oxyhemoglobin Carboxyhemoglobin Sodium Potassium Chloride Carbon Dioxide BUN Creatinine Glucose POC Glucose 188 H 177 H 123 H Hemoglobin A1c Magnesium Ferritin AST ALT Alkaline Phosphatase Lactate Dehydrogenase C-Reactive Protein Total Protein Albumin Arterial Blood Glucose Coronavirus (PCR) 08/11/21 08/11/21 08/11/21 11:42 15:43 21:34 WBC MCV MCH MCHC RDW Lymph % (Auto) [place] % (Auto) Eos % (Auto) Lymph # (Auto) [place] # (Auto) Eos # (Auto) Baso # (Auto) Seg Neutrophils % Seg Neuts % (Manual) Lymphocytes % (Manual) Seg Neutrophils # Seg Neutrophils # Man Lymphocytes # (Manual) D-Dimer ABG pH POC ABG pCO2 POC ABG pO2 ABG pO2 ABG HCO3 ABG O2 Saturation ABG Base Excess ABG Oxyhemoglobin ABG Sodium ABG Chloride ABG Glucose Oxyhemoglobin Carboxyhemoglobin Sodium Potassium Chloride Carbon Dioxide BUN Creatinine Glucose POC Glucose 182 H 182 H 112 H Hemoglobin A1c Magnesium Ferritin AST ALT Alkaline Phosphatase Lactate Dehydrogenase C-Reactive Protein Total Protein Albumin Arterial Blood Glucose Coronavirus (PCR) 08/12/21 08/12/21 08/12/21 07:49 12:03 17:06 WBC MCV MCH MCHC RDW Lymph % (Auto) [place] % (Auto) Eos % (Auto) Lymph # (Auto) [place] # (Auto) Eos # (Auto) Baso # (Auto) Seg Neutrophils % Seg Neuts % (Manual) Lymphocytes % (Manual) Seg Neutrophils # Seg Neutrophils # Man Lymphocytes # (Manual) D-Dimer ABG pH POC ABG pCO2 POC ABG pO2 ABG pO2 ABG HCO3 ABG O2 Saturation ABG Base Excess ABG Oxyhemoglobin ABG Sodium ABG Chloride ABG Glucose Oxyhemoglobin Carboxyhemoglobin Sodium Potassium Chloride Carbon Dioxide BUN Creatinine Glucose POC Glucose 151 H 154 H 106 H Hemoglobin A1c Magnesium Ferritin AST ALT Alkaline Phosphatase Lactate Dehydrogenase C-Reactive Protein Total Protein Albumin Arterial Blood Glucose Coronavirus (PCR) 08/12/21 08/13/21 08/13/21 21:50 07:31 11:27 WBC MCV MCH MCHC RDW Lymph % (Auto) [place] % (Auto) Eos % (Auto) Lymph # (Auto) [place] # (Auto) Eos # (Auto) Baso # (Auto) Seg Neutrophils % Seg Neuts % (Manual) Lymphocytes % (Manual) Seg Neutrophils # Seg Neutrophils # Man Lymphocytes # (Manual) D-Dimer ABG pH POC ABG pCO2 POC ABG pO2 ABG pO2 ABG HCO3 ABG O2 Saturation ABG Base Excess ABG Oxyhemoglobin ABG Sodium ABG Chloride ABG Glucose Oxyhemoglobin Carboxyhemoglobin Sodium Potassium Chloride Carbon Dioxide BUN Creatinine Glucose POC Glucose 160 H 118 H 177 H Hemoglobin A1c Magnesium Ferritin AST ALT Alkaline Phosphatase Lactate Dehydrogenase C-Reactive Protein Total Protein Albumin Arterial Blood Glucose Coronavirus (PCR) 08/13/21 08/13/21 08/14/21 16:21 20:59 07:16 WBC MCV MCH MCHC RDW Lymph % (Auto) [place] % (Auto) Eos % (Auto) Lymph # (Auto) [place] # (Auto) Eos # (Auto) Baso # (Auto) Seg Neutrophils % Seg Neuts % (Manual) Lymphocytes % (Manual) Seg Neutrophils # Seg Neutrophils # Man Lymphocytes # (Manual) D-Dimer ABG pH POC ABG pCO2 POC ABG pO2 ABG pO2 ABG HCO3 ABG O2 Saturation ABG Base Excess ABG Oxyhemoglobin ABG Sodium ABG Chloride ABG Glucose Oxyhemoglobin Carboxyhemoglobin Sodium Potassium Chloride Carbon Dioxide BUN Creatinine Glucose POC Glucose 116 H 140 H 109 H Hemoglobin A1c Magnesium Ferritin AST ALT Alkaline Phosphatase Lactate Dehydrogenase C-Reactive Protein Total Protein Albumin Arterial Blood Glucose Coronavirus (PCR) 08/14/21 11:13 WBC MCV MCH MCHC RDW Lymph % (Auto) [place] % (Auto) Eos % (Auto) Lymph # (Auto) [place] # (Auto) Eos # (Auto) Baso # (Auto) Seg Neutrophils % Seg Neuts % (Manual) Lymphocytes % (Manual) Seg Neutrophils # Seg Neutrophils # Man Lymphocytes # (Manual) D-Dimer ABG pH POC ABG pCO2 POC ABG pO2 ABG pO2 ABG HCO3 ABG O2 Saturation ABG Base Excess ABG Oxyhemoglobin ABG Sodium ABG Chloride ABG Glucose Oxyhemoglobin Carboxyhemoglobin Sodium Potassium Chloride Carbon Dioxide BUN Creatinine Glucose POC Glucose 176 H Hemoglobin A1c Magnesium Ferritin AST ALT Alkaline Phosphatase Lactate Dehydrogenase C-Reactive Protein Total Protein Albumin Arterial Blood Glucose Coronavirus (PCR)
[2021-08-14] MEDS: methylPREDNISolone Sod Succinate 125 MG/2 ML INJ IV SCH ×2 (14:57→22:26)
[2021-08-14] MEDS: ENOXAPARIN 40 MG/0.4 ML INJ SUB-Q SCH (22:26)
[2021-08-15] MEDS: methylPREDNISolone Sod Succinate 125 MG/2 ML INJ IV SCH ×3 (06:28→22:04)
[2021-08-15] MEDS: INSULIN LISPRO 100 UNIT/ML SUB-Q SCH ×4 (08:22→22:03)
[2021-08-15] MEDS: ACETAMINOPHEN 325 MG TAB PO PRN ×2 (08:29→22:03)
[2021-08-15] MEDS: INSULIN GLARGINE 100 UNITS/ML SUB-Q SCH (09:46)
[2021-08-15] MEDS: ALPRAZolam 1 MG TAB PO SCH ×2 (09:46→22:04)
[2021-08-15] MEDS: CHOLECALCIFEROL (VIT D3) 1000 UNIT (25 mcg) TAB PO SCH (09:46)
--- NOTE | 2021-08-15 14:36 | Progress Note ---
Assessment and Plan Assessment and plan: #Acute hypoxic/hypercapneic respiratory failure #Severe ARDS -stable -refusing BiPAP, currently on HFNC 30 -plan to maintain SpO2 >88% -s/p prednisone taper -encouraged patient to prone herself when she is awake -repeat CXR ordered -Pulmonology following, assistance appreciated #Metabolic alkalosis -stable #Heart failure with preserved ejection fraction -TTE: LVEF 55-60% with diastolic dysfunction -will continue to monitor for signs of fluid overload #COVID-19 infection -Continue Covid vitamins #Type 2 diabetes -continue Lantus 5 units daily and sliding scale insulin #Anxiety -Stable -continue xanax #DVT prophylaxis -Lovenox 40 daily #Deconditioning -Will benefit from SNF after prolonged hospital stay Resolved issues #Sepsis secondary to COVID-19 #Iatrogenic diarrhea #Hypomagnesemia #Hyponatremia #Protein calorie malnutrition #Dysuria #Hypokalemia #Possible UTI #Advanced care planning -Disease education conducted, care plan discussed, diagnoses discussed, prognosis discussed, and patient acknowledges understanding with care plan -Time: +30 minutes Disposition Plan: Continue medical management Total Time Spent with Patient (Minutes): 30 minutes History Interval history: No acute events overnight. Hospitalist Physical - Constitutional Vitals: Temp Pulse Resp BP Pulse Ox 99.2 F 120 H 38 H 115/67 98 08/15/21 11:31 08/15/21 14:00 08/15/21 14:00 08/15/21 14:00 08/15/21 14:12 General appearance: Present: no acute distress, well-nourished, other (Looks tired) - EENT Eyes: Present: PERRL, EOM intact ENT: hearing intact, clear oral mucosa, dentition normal - Neck Neck: Present: supple, normal ROM - Respiratory Respiratory effort: normal Respiratory: bilateral: CTA - Cardiovascular Rhythm: regular Heart Sounds: Present: S1 & S2 - Extremities Extremities: no ischemia, pulses intact, pulses symmetrical, No edema, normal temperature, normal color Peripheral Pulses: within normal limits - Abdominal General gastrointestinal: soft, non-tender, non-distended, normal bowel sounds - Integumentary Integumentary: Present: clear, warm, dry - Psychiatric Psychiatric: appropriate mood/affect, intact judgment & insight, cooperative - Neurologic Neurologic: CNII-XII intact - Allied Health Allied health notes reviewed: nursing Results - Labs CBC & Chem 7: 07/23/21 04:35 08/08/21 04:51 Labs: Laboratory Last Values WBC 10.8 K/mm3 (4.5-11.0) 07/23/21 04:35 RBC 3.84 M/mm3 (3.65-5.03) 07/23/21 04:35 Hgb 12.1 gm/dl (10.1-14.3) 07/23/21 04:35 Hct 37.6 % (30.3-42.9) 07/23/21 04:35 MCV 98 fl (79-97) H 07/23/21 04:35 MCH 32 pg (28-32) 07/23/21 04:35 MCHC 32 % (30-34) 07/23/21 04:35 RDW 16.2 % (13.2-15.2) H 07/23/21 04:35 Plt Count 367 K/mm3 (140-440) 07/23/21 04:35 Lymph % (Auto) 7.9 % (13.4-35.0) L 07/23/21 04:35 [place] % (Auto) 5.6 % (0.0-7.3) 07/23/21 04:35 Eos % (Auto) 0.8 % (0.0-4.3) 07/23/21 04:35 Baso % (Auto) 0.4 % (0.0-1.8) 07/23/21 04:35 Lymph # (Auto) 0.9 K/mm3 (1.2-5.4) L 07/23/21 04:35 [place] # (Auto) 0.6 K/mm3 (0.0-0.8) 07/23/21 04:35 Eos # (Auto) 0.1 K/mm3 (0.0-0.4) 07/23/21 04:35 Baso # (Auto) 0.0 K/mm3 (0.0-0.1) 07/23/21 04:35 Add Manual Diff Complete 07/09/21 04:45 Total Counted 100 07/09/21 04:45 Seg Neutrophils % 85.3 % (40.0-70.0) H 07/23/21 04:35 Seg Neuts % (Manual) 82.0 % (40.0-70.0) H 07/09/21 04:45 Band Neutrophils % 1.0 % 05/12/21 04:05 Lymphocytes % (Manual) 13.0 % (13.4-35.0) L 07/09/21 04:45 Monocytes % (Manual) 3.0 % (0.0-7.3) 07/09/21 04:45 Eosinophils % (Manual) 2.0 % (0.0-4.3) 07/09/21 04:45 Nucleated RBC % Not Reportable 07/09/21 04:45 Seg Neutrophils # 9.2 K/mm3 (1.8-7.7) H 07/23/21 04:35 Seg Neutrophils # Man 7.8 K/mm3 (1.8-7.7) H 07/09/21 04:45 Band Neutrophils # 0.0 K/mm3 07/09/21 04:45 Lymphocytes # (Manual) 1.2 K/mm3 (1.2-5.4) 07/09/21 04:45 Abs React Lymphs (Man) 0.0 K/mm3 07/09/21 04:45 Monocytes # (Manual) 0.3 K/mm3 (0.0-0.8) 07/09/21 04:45 Eosinophils # (Manual) 0.2 K/mm3 (0.0-0.4) 07/09/21 04:45 Basophils # (Manual) 0.0 K/mm3 (0.0-0.1) 07/09/21 04:45 Metamyelocytes # 0.0 K/mm3 07/09/21 04:45 Myelocytes # 0.0 K/mm3 07/09/21 04:45 Promyelocytes # 0.0 K/mm3 07/09/21 04:45 Blast Cells # 0.0 K/mm3 07/09/21 04:45 WBC Morphology Not Reportable 07/09/21 04:45 Hypersegmented Neuts Not Reportable 07/09/21 04:45 Hyposegmented Neuts Not Reportable 07/09/21 04:45 Hypogranular Neuts Not Reportable 07/09/21 04:45 Smudge Cells Not Reportable 07/09/21 04:45 Toxic Granulation Not Reportable 07/09/21 04:45 Toxic Vacuolation Not Reportable 07/09/21 04:45 Dohle Bodies Not Reportable 07/09/21 04:45 Pelger-Huet Anomaly Not Reportable 07/09/21 04:45 Janelle Rods Not Reportable 07/09/21 04:45 Platelet Estimate Consistent w auto 07/09/21 04:45 Clumped Platelets Not Reportable 07/09/21 04:45 Plt Clumps, EDTA Not Reportable 07/09/21 04:45 Large Platelets Not Reportable 07/09/21 04:45 Giant Platelets Rare 07/09/21 04:45 Platelet Satelliting Not Reportable 07/09/21 04:45 Plt Morphology Comment Not Reportable 07/09/21 04:45 RBC Morphology Not Reportable 07/09/21 04:45 Dimorphic RBCs Not Reportable 07/09/21 04:45 Polychromasia Not Reportable 07/09/21 04:45 Hypochromasia Few 07/09/21 04:45 Poikilocytosis Not Reportable 07/09/21 04:45 Anisocytosis Not Reportable 07/09/21 04:45 Microcytosis Not Reportable 07/09/21 04:45 Macrocytosis Not Reportable 07/09/21 04:45 Spherocytes Not Reportable 07/09/21 04:45 Pappenheimer Bodies Not Reportable 07/09/21 04:45 Sickle Cells Not Reportable 07/09/21 04:45 Target Cells Not Reportable 07/09/21 04:45 Tear Drop Cells Not Reportable 07/09/21 04:45 Ovalocytes Not Reportable 07/09/21 04:45 Stomatocytes 1+ 07/09/21 04:45 Helmet Cells Not Reportable 07/09/21 04:[address] [place] Bodies Not Reportable 07/09/21 04:45 [place] Rings Not Reportable 07/09/21 04:45 [place] Cells Not Reportable 07/09/21 04:45 Bite Cells Not Reportable 07/09/21 04:45 Crenated Cell Not Reportable 07/09/21 04:45 Elliptocytes Not Reportable 07/09/21 04:45 Acanthocytes (Spur) Not Reportable 07/09/21 04:45 Rouleaux Not Reportable 07/09/21 04:45 Hemoglobin C Crystals Not Reportable 07/09/21 04:45 Schistocytes Not Reportable 07/09/21 04:45 Malaria parasites Not Reportable 07/09/21 04:45 Justin Bodies Not Reportable 07/09/21 04:45 Hem Pathologist Commnt No 07/09/21 04:45 D-Dimer 638.35 ng/mlDDU (0-234) H 07/09/21 04:45 ABG pH 7.417 (7.320-7.450) 07/23/21 18:11 POC ABG pCO2 78.3 mmHg (32.0-48.0) H 07/23/21 18:11 ABG pCO2 85.7 mm Hg 07/22/21 12:05 POC ABG pO2 80.7 mmHg (83-108) L 07/23/21 18:11 ABG pO2 66.1 mm Hg (80.0-90.0) L 07/22/21 12:05 POC ABG HCO3 49.3 07/23/21 18:11 ABG HCO3 45.0 mmol/L (20.0-26.0) H 07/22/21 12:05 ABG O2 Saturation 96.7 (0-100) 07/23/21 18:11 ABG O2 Content 16.8 (0.0-44) 07/22/21 12:05 POC ABG Base Excess 20.5 07/23/21 18:11 ABG Base Excess 15.2 mmol/L (-2.0-3.0) H 07/22/21 12:05 ABG Hemoglobin 12.6 (12.0-17.5) 07/23/21 18:11 ABG Oxyhemoglobin 95.7 (94-98) 07/23/21 18:11 ABG Carboxyhemoglobin 1.9 % (0.0-5.0) 07/22/21 12:05 ABG Methemoglobin 0.3 (0.0-1.5) 07/23/21 18:11 ABG Sodium 134.9 mmol/L (136.0-145.0) L 07/23/21 18:11 ABG Potassium 3.9 mmol/L (3.40-4.50) 07/23/21 18:11 ABG Chloride 89.0 mmol/L (98-107) L 07/23/21 18:11 ABG Glucose 200 mg/dL (65-95) H 07/23/21 18:11 Oxyhemoglobin 91.9 % (95.0-99.0) L 07/22/21 12:05 Carboxyhemoglobin 0.7 (0.5-1.5) 07/23/21 18:11 FiO2 100 % 07/22/21 12:05 FiO2 % 100.0 07/23/21 18:11 Sodium 140 mmol/L (137-145) 08/08/21 04:51 Potassium 4.1 mmol/L (3.6-5.0) 08/08/21 04:51 Chloride 92.9 mmol/L (98-107) L 08/08/21 04:51 Carbon Dioxide 39 mmol/L (22-30) H 08/08/21 04:51 Anion Gap 12 mmol/L 08/08/21 04:51 BUN 9 mg/dL (7-17) 08/08/21 04:51 Creatinine < 0.2 mg/dL (0.6-1.2) L 08/08/21 04:51 Estimated GFR > 60 ml/min 08/08/21 04:51 BUN/Creatinine Ratio 45 % 08/08/21 04:51 Glucose 105 mg/dL (65-100) H 08/08/21 04:51 POC Glucose 225 mg/dL (70-105) H 08/15/21 11:11 Hemoglobin A1c 8.5 % (4-6) H 04/18/21 07:36 Calcium 9.4 mg/dL (8.4-10.2) 08/08/21 04:51 Phosphorus 3.70 mg/dL (2.5-4.5) 07/23/21 04:35 Magnesium 2.10 mg/dL (1.7-2.3) 07/23/21 04:35 Ferritin 155.9 ng/mL (10.0-200.0) 07/09/21 04:45 Total Bilirubin < 0.20 mg/dL (0.1-1.2) 07/26/21 09:56 AST 23 units/L (5-40) 07/26/21 09:56 ALT 25 units/L (7-56) 07/26/21 09:56 Alkaline Phosphatase 69 units/L (35-129) 07/26/21 09:56 Lactate Dehydrogenase 475 units/L (91-180) H 06/05/21 05:26 C-Reactive Protein 4.30 mg/dL (0.00-1.30) H 07/09/21 04:45 NT-Pro-B Natriuret Pep 59.45 pg/mL (0-450) 07/07/21 13:40 Total Protein 8.1 g/dL (6.3-8.2) 07/26/21 09:56 Albumin 3.2 g/dL (3.9-5) L 07/26/21 09:56 Albumin/Globulin Ratio 0.7 % 07/26/21 09:56 Triglycerides < 9 mg/dL (2-149) 05/03/21 04:30 Procalcitonin < 0.05 ng/mL (<0.15) 05/23/21 09:50 Arterial Blood Glucose 200 mg/dL (65-95) H 07/23/21 18:11 Arterial Blood Ionized Calcium 4.6 mg/dL (4.6-5.3) 07/23/21 18:11 Coronavirus (PCR) Negative (Negative) 07/25/21 Unknown Amos/IV: Voiding Method External Female Catheter Active Medications - Current Medications Current Medications: Generic Name Dose Route Start Last Admin Trade Name Freq PRN Reason Stop Dose Admin Acetaminophen 650 mg 07/02/21 17:48 08/15/21 08:29 Acetaminophen 325 Mg Tab PO 650 mg Q4H PRN Administration Pain, Mild (1-3) Albuterol 2.5 mg 04/16/21 13:39 04/21/21 20:39 Albuterol 2.5 Mg/3 Ml Nebu IH 2.5 mg Q4HRT PRN Administration Shortness Of Breath Alprazolam 1 mg 08/12/21 11:00 08/15/21 09:46 Alprazolam 1 Mg Tab PO 1 mg BID TUTU Administration Calcium Carbonate/Glycine 500 mg 07/24/21 10:43 08/14/21 22:24 Calcium Carbonate 500 Mg Tab Chew PO 500 mg BID PRN Administration reflux Cholecalciferol 1,000 unit 04/17/21 10:00 08/15/21 09:46 Cholecalciferol (Vit D3) 1000 Unit (25 Mcg) Tab PO 1,000 unit QDAY TUTU Administration Enoxaparin Sodium 40 mg 05/19/21 22:00 08/14/21 22:26 Enoxaparin 40 Mg/0.4 Ml Inj SUB-Q 40 mg QDAY@2200 TUTU Administration Protocol Insulin Glargine 5 units 07/25/21 10:00 08/15/21 09:46 Insulin Glargine 100 Units/Ml SUB-Q 5 units DAILY TUTU Administration Insulin Human Lispro 0 unit 05/18/21 12:00 08/15/21 12:00 Insulin Lispro 100 Unit/Ml SUB-Q 4 unit ACHS TUTU Administration Protocol Methylprednisolone Sodium Succinate 125 mg 08/14/21 15:00 08/15/21 06:28 Methylprednisolone Sod Succinate 125 Mg/2 Ml Inj IV 125 mg Q8HR TUTU Administration Ondansetron HCl 4 mg 04/16/21 14:00 05/30/21 10:07 Ondansetron 4 Mg/2 Ml Inj IV 4 mg Q8H PRN Administration Nausea And Vomiting Polyethylene Glycol 17 gm 07/16/21 20:00 08/11/21 11:18 Polyethylene Glycol 3350 17 Gm Powder PO 17 gm QDAY PRN Administration Constipation Sodium Chloride 10 ml 04/16/21 13:39 08/14/21 22:28 Sodium Chloride 0.9% 10 Ml Flush Syringe IV 10 ml PRN PRN Administration LINE FLUSH Nutrition/Malnutrition Assess - Dietary Evaluation Nutrition/Malnutrition Findings: Nutrition Notes Start: 04/23/21 07:41 Freq: Status: Active Protocol: Document 08/09/21 17:26 SAQIB (Rec: 08/09/21 17:30 SAQIB [id number]) Nutrition Notes Initial or Follow up Brief Note Subjective/Other Information RD brief note to set next F/U on 09/12 Nutrition Intervention Follow-Up By: 09/12/21 Additional Comments Continue monitoring food tolerance, %PO intake of meals , Hydration, and BM.
[2021-08-15] MEDS: ENOXAPARIN 40 MG/0.4 ML INJ SUB-Q SCH (22:03)
[2021-08-16] MEDS: methylPREDNISolone Sod Succinate 125 MG/2 ML INJ IV SCH ×3 (06:21→21:22)
[2021-08-16] MEDS: CHOLECALCIFEROL (VIT D3) 1000 UNIT (25 mcg) TAB PO SCH (09:11)
[2021-08-16] MEDS: INSULIN GLARGINE 100 UNITS/ML SUB-Q SCH (09:11)
[2021-08-16] MEDS: INSULIN LISPRO 100 UNIT/ML SUB-Q SCH ×4 (09:11→21:22)
[2021-08-16] MEDS: ALPRAZolam 1 MG TAB PO SCH ×2 (09:11→21:23)
[2021-08-16] MEDS: ACETAMINOPHEN 325 MG TAB PO PRN (09:50)
--- NOTE | 2021-08-16 14:26 | Progress Note ---
Assessment and Plan 50 y/o female with acute respiratory failure secondary to COVID19 pneumonia. 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 Will continue solumedrol 126q8 and wean slowly over time. Discussed with pharmacy. CM working on possible placement with [facility] once she reaches a certain goal of HFNC. Will continue to monitor. 08/14/21: wean HFNC as tolerated. 08/12/21: Continue to attempt to wean HFNC. No other therapies available for this at present. Will check CXR today. 08/07/21: Constant struggle with Ms. Ren, on and off bipap. Good and bad days. She has had all therapy. Anxiety does play a huge roll but she truly desats. Continue NIV at night and PRN during the day. Wean HFNC as tolerated for sats >88%. May consider another trial of steroids when I come back. My partner is rounding the next 4 days. 08/05/21: I dropped FiO2 to 65%. Continue to wean for sats >88%. 08/03/21: COntinue supportive measures. Thank you for documenting refusal of NIV at night. Will attempt to speak with patient about anxiety and why she do esn't want to wear the NIV via the language line. 08/02/21: Continue supportive care. pLaced new order for NIV at night. Please document if patient refuses 07/31/21: COntinue to wean FiO2 as tolerated. NIV at night. 07/30/21: Bipap QHS. Please document if patient is refusing this at night. Per nurse she has refused but RT documentation reflects that it was PRN and not needed. Prognosis is still guarded. 07/29/21: Continue to attempt to wean FiO2. Given fluctuations in oxygen requirements, ok with keeping in IMCU. consider using bipap therapy at night if patient will allow. Prognosis still remains guarded. Patient has been here 104 days. 07/21/21: Wean FiO2 as tolerated. Patient has never proned the entire 96 days she has been here. Will continue bipap at night. Hold on lasix again today. Prognosis remains guarded. Has finished steroids and all other experimental CO VID drugs with minimal to no improvement. 07/20/21: Give patient a break off of bipap and attempt high flow nasal cannula today. Will feed. Suggest keeping bipap therapy at night. Monitor fluid ba tammie and BP. May need more lasix. 07/19/21: This was not related to stopping steroids as hemodynamically she is stable. Her sats is very good on 90%, I dropped to 85 and will continue to wean. She speaks no chinese and is very anxious. This adds to her work of breathing. COntinue to wean FiO2 as tolerated. Will give periodic breaks on bipap therapy. Guarded prognosis. 07/17/21: will stop steroids today. Hold on lasix given marginal blood pressure. Guarded prognosis. 07/15/21: Lasix today. Positive fluid balance all weekend based on I/O. Prone. Wean for sats >88% 07/12/21: Gave lasix 40mg IV again this am. Per charting yesterday was the first net negative day. Suggest PRN diuresis over the weekend as well. My partner is rounding but will likely see as needed. Continue to wean for sats >88% 07/11/21: Lasix 40mg IV this am. Attempt to prone if able. Attempt to [place] daily net negative state. Wean for sats >88%. Guarded prognosis. Will change prednisone to 5mg daily starting tomorrow. 07/09/21: Echo shows diastolic dysfunction. Will given an additional 40 of IV lasix today. Monitor daily and wean aggressively for sats >88% 07/08/21: Worsening CXR, Gave lasix yesterday and will give again today. Suggest checking echo, ekg. Prognosis is poor now with this change. We have seen COVID cause CAD with VT. 07/05/21: Will monitor over the weekend. Worst case scenario, may need to go back up to Prednisone 20 at least. Prone if able. Unsure why all of sudden oxygen requirement increasing. Will repeat CXR. 07/03/21: Down to 10 of prednisone. Will keep through the weekend and then drop to 5 on Thursday. PT/OT assessment if not done. Suggest maybe weaning flow now given FiO2 down to 50%. Prognosis is still guarded. 07/01/21: Will drop steroids to 10mg daily starting tomorrow. Wean for sats >88%. Prone. PT/OT should be seeing now that oxygen requirement is down more. 06/28/21: Continue to wean as tolerated. Will drop steroids down even further next week. Will see PRN over the weekend. 06/26/21: Will drop steroids down to 20 starting tomorrow. Prone. Continue to wean as tolerated. 06/24/21: Continue Pred, will drop to 20 daily tomorrow. Prone if able. Hopeful they can wean FiO2 more. May need to consider increasing flow for a while. 06/21/21: Continue pred at 40, will decrease likely Thursday/Thursday to 20 [place]. Prone if able. Continue to wean as tolerated. Prognosis still remains guarded. 06/20/21: Will drop steroids down to 40 today. Proning. Continue to wean FiO2. 06/18/21: Wean Fio2 for sats >88%. Please encourage proning. Drop steroids down to 40 on . 06/14/21: Continue oral steroid therapy. Will do further weaning next week. Wean for sats >88% and prone as tolerated. Will see as needed over the weekend. 06/13/21: Will change to prednisone 60 daily starting tomorrow. Prone if able and wean for sats >88% 06/11/21: no new recs, will change to oral steroids tomorrow, continue to prone if able and wean for sats >88% 06/10/21: Will change to oral steroids on Thursday to begin prolonged taper 06/06/21: Continue to wean as tolerated, will drop steroids on tomorrow. 06/04/21: Clinically no change. Will drop steroids down the end of this week. 05/31/21: Clinically no change. Not eligible for LTACH. Encourage Proning. Will drop steroids down to 40 q8 05/29/21: No acute changes clinically. Still on HFNC but not really able to wean. Continue to encourage proning. Will drop steroids further on Thursday. 05/27/21: No improvement over the weekend but also no worsening. No other strategies to offer. Please continue to encourage patient to prone. I dropped steroids on yesterday. Will wean more later in the week. 05/24/21: No new recs again for today. Will see as needed over the weekend but follow chart peripherally for changes. 05/22/21: No new recs for today. Prognosis remains guarded. 05/21/21: Wean as tolerated. Prone if able. Guarded prognosis 05/20/21: COntinue current level of care. 05/17/21: Prone if possible. Wean FiO2 for sats >88%. Continue scheduled ativan. Prognosis is very very guarded. Unfunded so not a candidate for LTACH 05/16/21: Prone if willing. Wean FIO2 if patient will allow. Anxiety control. Prognosis still remains very guarded. 05/15/21: Not sure if MAR is accurate but may have only gotten one dose of sche duled anixolytic therapy. Continue proning as tolerated, and wean FiO2 and flow for sats >88%. Prognosi remains very very guarded to poor. 05/14/21: Will discontinue the buspar and make the ativan scheduled but will do q6 as oppose to q4 and attempt to leave parameters for nursing when not to give. If anxiety could be controlled, feel that patient could be weaned further. She has no funding so she is not a candidate for LTACH. Prone if possible. Guarded prognosis. This is her day. 05/13/21: Ordered buspar 10 BID to start with to help with anxiety. Please continue to wean FiO2 as tolerated. Will remind nurse that there is PRN ativan available. Continue higher doses of steroids. Prone if able. 05/12/21: Patient may need something longer acting for anxiety. Per chart has no t gotten any ativan in days. Would be ok with either buspar or low dose klonopin bid. COntinue higher doses of steroids as patient seems to be responding. Prone if possible. 05/11/21: Continue high doses of steroids and continue to wean for sats >88%. Please encourage proning. 05/10/21: Will continue this dose of steroid at least through the weekend and assess for improvement. will speak with RT about aggressive weaning. Full dose anticoagulation continues. Very very guarded to poor prognosis. 05/09/21: Going to consider increasing steroids to 125q8, maybe as early as tomorrow. continue full dose anticoagulation. 05/08/21: Continue anticoagulation and steroids. Prone if possible. Anxiety control. No objection to CTA if this can happen. Very very guarded prognosis. 05/07/21: Spoke with IMS, not opposed to full dose anticoagulation. If patient goes back on NRB HFNC combo may need to consider restarting PPN again. Encourage proning. Guarded prognosis. 05/06/21: Continue to wean FiO2 and flow for sats >88%. Tolerating diet now so will stop PPN. Continue anxiety control. Continue IV steroids. Would not object to transfer to [facility] floor if bed available. Not sure why she was titrated back up to 100% from 85 as all sats documented in the RT's notes were acceptable. Same for under vital signs as well. 05/03/21: Set back last night from yesterday. Continue bipap therapy for now and attempt HFNC maybe later this afternoon. Continue to use PRN ativan but may need to schedule as she likely took off mask from anxiety. Continue IV steroids. Hold on transfer to [facility] Floor. 05/02/21: Continue to wean FiO2 as tolerated for sats >88%. Will continue bipap at night. Patient has no funding so not a candidate for LTACH. Given that she has been stable and not requiring the combo of HFNC and NRB, will consider moving to [facility] floor. 05/01/21: Continue to wean FiO2 for sats >88%. A sat of 90 is more than acceptable and oxygen should not be increased for this unless patient desats and remains at a sat lower than 88. Bipap at night to give some form of relief and HFNC during the day. Currently on just this alone which is improvement. Ok with daily diuresis but must monitor renal function and BP closely. She was over diuresed last week and we ended up giving fluid back. Prognosis remains guarded. 04/30/21: Will start CLinimix today for nutritional support, without electrolytes. Check labs in am. Prone if able. Continue precedex for anxiety. Very very guarded prognosis. Attempting our best to not intubate. 04/29/21: Continue precedex. Continue IV solumedrol. Prone if able. Guarded prognosis. 04/28/21: Continue Precedex. Picc team attempting to place line now. Stable on Bipap. Ordered steroids IV solumedrol to start today. Prognosis remains guarded, still at very high risk for intubation. 04/27/21: Hypotension improving/improved. Hold on any further lasix dosing. Continue precedex to help with anxeity. later today please attempt HFNC with NRB if needed. Attempt to feed if possible. Steroids end today, please order solumedrol 40q8 to start tomorrow (04/28/21). guarded prognosis. 04/26/21: Hypotension today, most likely from precedex use and diuresis that I did the last several days. Will bolus again today. Consider midodrine if BP does not respond. 04/25/21: Lasix again today. Keep PRN ativan for now. Hold on precedex for now. Guarded prognosis. Labs ordered for tomorrow. 04/24/21: Lasix today. Will also start patient on low dose PRN ativan. If this does not help will then try precedex. Guarded prognosis. 04/23/21: Prone as tolerated. No lasix today. Continue decadron. Guarded prog nosis. High risk for intubation and high mortality with intubation. 04/19/21: Prone as tolerated during the day and sleep prone at night. Continue IV remdesivir and steroids. Did get actemra. Guarded prognosis. 1. Daily net negative state 2. Prone if possible 3. IV remdesivir. 4. Should be a candidate for Actemra 5. IV steroids 6. Guarded Prognosis Subjective Date of service: 08/16/21 Principal diagnosis: Covid-19 Interval history: Some improvement in sats with steroids. Did desat with significant exertion. Looks a tad better today. Objective Vital Signs - 12hr 08/16/21 08/16/21 08/16/21 03:00 04:00 05:00 Temperature 98.2 F Pulse Rate 106 H 109 H 109 H Pulse Rate [ 116 H From Monitor] Respiratory 36 H 34 H 28 H Rate Blood Pressure 106/77 103/64 110/60 O2 Sat by Pulse 97 94 93 Oximetry 08/16/21 08/16/21 08/16/21 06:00 07:00 07:40 Temperature 98.8 F Pulse Rate 108 H 105 H Pulse Rate [ From Monitor] Respiratory 26 H 30 H Rate Blood Pressure 110/60 112/61 O2 Sat by Pulse 98 96 Oximetry 08/16/21 08/16/21 08/16/21 08:00 09:00 09:25 Temperature 98.8 F Pulse Rate 112 H 117 H Pulse Rate [ 112 H From Monitor] Respiratory 33 H 41 H Rate Blood Pressure 127/79 122/66 O2 Sat by Pulse 93 95 70 L Oximetry 08/16/21 08/16/21 10:00 11:26 Temperature 99.1 F Pulse Rate 113 H Pulse Rate [ From Monitor] Respiratory 36 H Rate Blood Pressure 122/56 O2 Sat by Pulse 97 Oximetry Constitutional: alert, other (on hiflo o2) Eyes: non-icteric ENT: oropharynx moist Neck: supple Effort: normal Ascultation: Bilateral: diminished breath sounds Cardiovascular: regular rate and rhythm Gastrointestinal: normoactive bowel sounds, soft, non-tender, non-distended Integumentary: normal Extremities: no cyanosis, no edema, pink and warm Neurologic: non-focal exam, pupils equal and round Psychiatric: mood appropriate, affect normal CBC and BMP: 07/23/21 04:35 08/08/21 04:51 ABG, PT/INR, D-dimer: ABG ABG pH 7.417 (7.320-7.450) 07/23/21 18:11 POC ABG pCO2 78.3 mmHg (32.0-48.0) H 07/23/21 18:11 ABG pCO2 85.7 mm Hg 07/22/21 12:05 POC ABG pO2 80.7 mmHg (83-108) L 07/23/21 18:11 ABG pO2 66.1 mm Hg (80.0-90.0) L 07/22/21 12:05 POC ABG HCO3 49.3 07/23/21 18:11 ABG O2 Saturation 96.7 (0-100) 07/23/21 18:11 PT/INR, D-dimer D-Dimer 638.35 ng/mlDDU (0-234) H 07/09/21 04:45 Abnormal lab findings: Abnormal Labs 04/16/21 04/16/21 04/16/21 11:42 11:42 11:42 WBC MCV MCH MCHC RDW 16.1 H Lymph % (Auto) 7.8 L [place] % (Auto) Eos % (Auto) Lymph # (Auto) 0.8 L [place] # (Auto) Eos # (Auto) Baso # (Auto) Seg Neutrophils % 87.7 H Seg Neuts % (Manual) Lymphocytes % (Manual) Seg Neutrophils # 8.5 H Seg Neutrophils # Man Lymphocytes # (Manual) D-Dimer 338.70 H ABG pH POC ABG pCO2 POC ABG pO2 ABG pO2 ABG HCO3 ABG O2 Saturation ABG Base Excess ABG Oxyhemoglobin ABG Sodium ABG Chloride ABG Glucose Oxyhemoglobin Carboxyhemoglobin Sodium Potassium Chloride Carbon Dioxide BUN Creatinine Glucose 194 H POC Glucose Hemoglobin A1c Magnesium Ferritin AST ALT Alkaline Phosphatase Lactate Dehydrogenase C-Reactive Protein Total Protein 8.4 H Albumin 3.8 L Arterial Blood Glucose Coronavirus (PCR) 04/16/21 04/16/21 04/17/21 11:42 11:42 03:50 WBC MCV MCH MCHC RDW 16.0 H Lymph % (Auto) 7.7 L [place] % (Auto) Eos % (Auto) Lymph # (Auto) 0.6 L [place] # (Auto) Eos # (Auto) Baso # (Auto) Seg Neutrophils % 89.8 H Seg Neuts % (Manual) Lymphocytes % (Manual) Seg Neutrophils # Seg Neutrophils # Man Lymphocytes # (Manual) D-Dimer ABG pH POC ABG pCO2 POC ABG pO2 ABG pO2 ABG HCO3 ABG O2 Saturation ABG Base Excess ABG Oxyhemoglobin ABG Sodium ABG Chloride ABG Glucose Oxyhemoglobin Carboxyhemoglobin Sodium Potassium Chloride Carbon Dioxide BUN Creatinine Glucose 195 H POC Glucose Hemoglobin A1c Magnesium Ferritin 254.3 H AST ALT Alkaline Phosphatase Lactate Dehydrogenase 359 H C-Reactive Protein 15.20 H Total Protein Albumin Arterial Blood Glucose Coronavirus (PCR) 04/17/21 04/17/21 04/17/21 03:50 08:26 08:26 WBC MCV MCH MCHC RDW Lymph % (Auto) [place] % (Auto) Eos % (Auto) Lymph # (Auto) [place] # (Auto) Eos # (Auto) Baso # (Auto) Seg Neutrophils % Seg Neuts % (Manual) Lymphocytes % (Manual) Seg Neutrophils # Seg Neutrophils # Man Lymphocytes # (Manual) D-Dimer 262.48 H ABG pH POC ABG pCO2 POC ABG pO2 ABG pO2 ABG HCO3 ABG O2 Saturation ABG Base Excess ABG Oxyhemoglobin ABG Sodium ABG Chloride ABG Glucose Oxyhemoglobin Carboxyhemoglobin Sodium Potassium Chloride Carbon Dioxide BUN 20 H Creatinine 0.5 L Glucose 249 H 225 H POC Glucose Hemoglobin A1c Magnesium Ferritin AST ALT Alkaline Phosphatase Lactate Dehydrogenase 338 H C-Reactive Protein 17.20 H Total Protein Albumin 3.2 L Arterial Blood Glucose Coronavirus (PCR) 04/17/21 04/17/21 04/17/21 08:26 15:04 Unknown WBC MCV MCH MCHC RDW Lymph % (Auto) [place] % (Auto) Eos % (Auto) Lymph # (Auto) [place] # (Auto) Eos # (Auto) Baso # (Auto) Seg Neutrophils % Seg Neuts % (Manual) Lymphocytes % (Manual) Seg Neutrophils # Seg Neutrophils # Man Lymphocytes # (Manual) D-Dimer ABG pH POC ABG pCO2 POC ABG pO2 ABG pO2 ABG HCO3 ABG O2 Saturation ABG Base Excess ABG Oxyhemoglobin ABG Sodium ABG Chloride ABG Glucose Oxyhemoglobin Carboxyhemoglobin Sodium Potassium Chloride Carbon Dioxide BUN 20 H Creatinine 0.5 L Glucose 246 H POC Glucose Hemoglobin A1c Magnesium Ferritin 392.0 H AST ALT Alkaline Phosphatase Lactate Dehydrogenase C-Reactive Protein Total Protein 8.3 H Albumin 3.1 L Arterial Blood Glucose Coronavirus (PCR) Positive A 04/18/21 04/18/21 04/18/21 05:06 05:06 07:36 WBC 11.6 H MCV MCH MCHC RDW 16.1 H Lymph % (Auto) [place] % (Auto) Eos % (Auto) Lymph # (Auto) [place] # (Auto) Eos # (Auto) Baso # (Auto) Seg Neutrophils % Seg Neuts % (Manual) Lymphocytes % (Manual) Seg Neutrophils # Seg Neutrophils # Man Lymphocytes # (Manual) D-Dimer ABG pH POC ABG pCO2 POC ABG pO2 ABG pO2 ABG HCO3 ABG O2 Saturation ABG Base Excess ABG Oxyhemoglobin ABG Sodium ABG Chloride ABG Glucose Oxyhemoglobin Carboxyhemoglobin Sodium Potassium 5.2 H Chloride Carbon Dioxide BUN 22 H Creatinine 0.5 L Glucose 315 H POC Glucose Hemoglobin A1c 8.5 H Magnesium Ferritin AST ALT Alkaline Phosphatase Lactate Dehydrogenase C-Reactive Protein Total Protein Albumin 3.3 L Arterial Blood Glucose Coronavirus (PCR) 04/18/21 04/18/21 04/18/21 11:59 16:43 23:24 WBC MCV MCH MCHC RDW Lymph % (Auto) [place] % (Auto) Eos % (Auto) Lymph # (Auto) [place] # (Auto) Eos # (Auto) Baso # (Auto) Seg Neutrophils % Seg Neuts % (Manual) Lymphocytes % (Manual) Seg Neutrophils # Seg Neutrophils # Man Lymphocytes # (Manual) D-Dimer ABG pH POC ABG pCO2 POC ABG pO2 ABG pO2 ABG HCO3 ABG O2 Saturation ABG Base Excess ABG Oxyhemoglobin ABG Sodium ABG Chloride ABG Glucose Oxyhemoglobin Carboxyhemoglobin Sodium Potassium Chloride Carbon Dioxide BUN Creatinine Glucose POC Glucose 284 H 273 H 290 H Hemoglobin A1c Magnesium Ferritin AST ALT Alkaline Phosphatase Lactate Dehydrogenase C-Reactive Protein Total Protein Albumin Arterial Blood Glucose Coronavirus (PCR) 04/19/21 04/19/21 04/19/21 04:19 04:19 08:10 WBC MCV MCH MCHC RDW 15.7 H Lymph % (Auto) [place] % (Auto) Eos % (Auto) Lymph # (Auto) [place] # (Auto) Eos # (Auto) Baso # (Auto) Seg Neutrophils % Seg Neuts % (Manual) Lymphocytes % (Manual) Seg Neutrophils # Seg Neutrophils # Man Lymphocytes # (Manual) D-Dimer ABG pH POC ABG pCO2 POC ABG pO2 ABG pO2 ABG HCO3 ABG O2 Saturation ABG Base Excess ABG Oxyhemoglobin ABG Sodium ABG Chloride ABG Glucose Oxyhemoglobin Carboxyhemoglobin Sodium Potassium Chloride Carbon Dioxide BUN 27 H Creatinine 0.4 L Glucose 184 H POC Glucose 194 H Hemoglobin A1c Magnesium Ferritin AST ALT Alkaline Phosphatase Lactate Dehydrogenase C-Reactive Protein Total Protein Albumin 3.1 L Arterial Blood Glucose Coronavirus (PCR) 04/19/21 04/19/21 04/19/21 11:38 16:25 22:04 WBC MCV MCH MCHC RDW Lymph % (Auto) [place] % (Auto) Eos % (Auto) Lymph # (Auto) [place] # (Auto) Eos # (Auto) Baso # (Auto) Seg Neutrophils % Seg Neuts % (Manual) Lymphocytes % (Manual) Seg Neutrophils # Seg Neutrophils # Man Lymphocytes # (Manual) D-Dimer ABG pH POC ABG pCO2 POC ABG pO2 ABG pO2 ABG HCO3 ABG O2 Saturation ABG Base Excess ABG Oxyhemoglobin ABG Sodium ABG Chloride ABG Glucose Oxyhemoglobin Carboxyhemoglobin Sodium Potassium Chloride Carbon Dioxide BUN Creatinine Glucose POC Glucose 224 H 297 H 251 H Hemoglobin A1c Magnesium Ferritin AST ALT Alkaline Phosphatase Lactate Dehydrogenase C-Reactive Protein Total Protein Albumin Arterial Blood Glucose Coronavirus (PCR) 04/20/21 04/20/21 04/20/21 05:28 08:43 16:21 WBC MCV MCH MCHC RDW Lymph % (Auto) [place] % (Auto) Eos % (Auto) Lymph # (Auto) [place] # (Auto) Eos # (Auto) Baso # (Auto) Seg Neutrophils % Seg Neuts % (Manual) Lymphocytes % (Manual) Seg Neutrophils # Seg Neutrophils # Man Lymphocytes # (Manual) D-Dimer ABG pH POC ABG pCO2 POC ABG pO2 ABG pO2 ABG HCO3 ABG O2 Saturation ABG Base Excess ABG Oxyhemoglobin ABG Sodium ABG Chloride ABG Glucose Oxyhemoglobin Carboxyhemoglobin Sodium Potassium Chloride Carbon Dioxide BUN 27 H Creatinine Glucose 192 H POC Glucose 173 H 253 H Hemoglobin A1c Magnesium Ferritin AST ALT Alkaline Phosphatase Lactate Dehydrogenase C-Reactive Protein Total Protein Albumin 3.0 L Arterial Blood Glucose Coronavirus (PCR) 04/21/21 04/21/21 04/21/21 07:58 12:05 16:08 WBC MCV MCH MCHC RDW Lymph % (Auto) [place] % (Auto) Eos % (Auto) Lymph # (Auto) [place] # (Auto) Eos # (Auto) Baso # (Auto) Seg Neutrophils % Seg Neuts % (Manual) Lymphocytes % (Manual) Seg Neutrophils # Seg Neutrophils # Man Lymphocytes # (Manual) D-Dimer ABG pH POC ABG pCO2 POC ABG pO2 ABG pO2 ABG HCO3 ABG O2 Saturation ABG Base Excess ABG Oxyhemoglobin ABG Sodium ABG Chloride ABG Glucose Oxyhemoglobin Carboxyhemoglobin Sodium Potassium Chloride Carbon Dioxide BUN Creatinine Glucose POC Glucose 140 H 252 H 214 H Hemoglobin A1c Magnesium Ferritin AST ALT Alkaline Phosphatase Lactate Dehydrogenase C-Reactive Protein Total Protein Albumin Arterial Blood Glucose Coronavirus (PCR) 04/21/21 04/22/21 04/22/21 21:42 08:37 12:01 WBC MCV MCH MCHC RDW Lymph % (Auto) [place] % (Auto) Eos % (Auto) Lymph # (Auto) [place] # (Auto) Eos # (Auto) Baso # (Auto) Seg Neutrophils % Seg Neuts % (Manual) Lymphocytes % (Manual) Seg Neutrophils # Seg Neutrophils # Man Lymphocytes # (Manual) D-Dimer ABG pH 7.457 H POC ABG pCO2 POC ABG pO2 49.4 L ABG pO2 ABG HCO3 ABG O2 Saturation ABG Base Excess ABG Oxyhemoglobin 85.6 L ABG Sodium ABG Chloride ABG Glucose 121 H Oxyhemoglobin Carboxyhemoglobin 0.3 L Sodium Potassium Chloride Carbon Dioxide BUN Creatinine Glucose POC Glucose 162 H 227 H Hemoglobin A1c Magnesium Ferritin AST ALT Alkaline Phosphatase Lactate Dehydrogenase C-Reactive Protein Total Protein Albumin Arterial Blood Glucose 121 H Coronavirus (PCR) 04/22/21 04/22/21 04/23/21 16:26 22:23 04:52 WBC MCV MCH MCHC RDW 15.7 H Lymph % (Auto) [place] % (Auto) Eos % (Auto) Lymph # (Auto) [place] # (Auto) Eos # (Auto) Baso # (Auto) Seg Neutrophils % Seg Neuts % (Manual) Lymphocytes % (Manual) Seg Neutrophils # Seg Neutrophils # Man Lymphocytes # (Manual) D-Dimer ABG pH POC ABG pCO2 POC ABG pO2 ABG pO2 ABG HCO3 ABG O2 Saturation ABG Base Excess ABG Oxyhemoglobin ABG Sodium ABG Chloride ABG Glucose Oxyhemoglobin Carboxyhemoglobin Sodium Potassium Chloride Carbon Dioxide BUN Creatinine Glucose POC Glucose 200 H 136 H Hemoglobin A1c Magnesium Ferritin AST ALT Alkaline Phosphatase Lactate Dehydrogenase C-Reactive Protein Total Protein Albumin Arterial Blood Glucose Coronavirus (PCR) 04/23/21 04/23/21 04/23/21 04:52 12:06 17:41 WBC MCV MCH MCHC RDW Lymph % (Auto) [place] % (Auto) Eos % (Auto) Lymph # (Auto) [place] # (Auto) Eos # (Auto) Baso # (Auto) Seg Neutrophils % Seg Neuts % (Manual) Lymphocytes % (Manual) Seg Neutrophils # Seg Neutrophils # Man Lymphocytes # (Manual) D-Dimer ABG pH POC ABG pCO2 POC ABG pO2 ABG pO2 ABG HCO3 ABG O2 Saturation ABG Base Excess ABG Oxyhemoglobin ABG Sodium ABG Chloride ABG Glucose Oxyhemoglobin Carboxyhemoglobin Sodium 136 L Potassium Chloride 97.7 L Carbon Dioxide BUN 23 H Creatinine Glucose 101 H POC Glucose 202 H 169 H Hemoglobin A1c Magnesium Ferritin AST 46 H ALT Alkaline Phosphatase Lactate Dehydrogenase C-Reactive Protein Total Protein Albumin 3.3 L Arterial Blood Glucose Coronavirus (PCR) 04/23/21 04/24/21 04/24/21 23:08 05:17 08:38 WBC MCV MCH MCHC RDW Lymph % (Auto) [place] % (Auto) Eos % (Auto) Lymph # (Auto) [place] # (Auto) Eos # (Auto) Baso # (Auto) Seg Neutrophils % Seg Neuts % (Manual) Lymphocytes % (Manual) Seg Neutrophils # Seg Neutrophils # Man Lymphocytes # (Manual) D-Dimer ABG pH POC ABG pCO2 POC ABG pO2 ABG pO2 ABG HCO3 ABG O2 Saturation ABG Base Excess ABG Oxyhemoglobin ABG Sodium ABG Chloride ABG Glucose Oxyhemoglobin Carboxyhemoglobin Sodium Potassium Chloride Carbon Dioxide BUN Creatinine Glucose POC Glucose 111 H 108 H 126 H Hemoglobin A1c Magnesium Ferritin AST ALT Alkaline Phosphatase Lactate Dehydrogenase C-Reactive Protein Total Protein Albumin Arterial Blood Glucose Coronavirus (PCR) 04/24/21 04/24/21 04/24/21 11:54 17:57 21:23 WBC MCV MCH MCHC RDW Lymph % (Auto) [place] % (Auto) Eos % (Auto) Lymph # (Auto) [place] # (Auto) Eos # (Auto) Baso # (Auto) Seg Neutrophils % Seg Neuts % (Manual) Lymphocytes % (Manual) Seg Neutrophils # Seg Neutrophils # Man Lymphocytes # (Manual) D-Dimer ABG pH POC ABG pCO2 POC ABG pO2 ABG pO2 ABG HCO3 ABG O2 Saturation ABG Base Excess ABG Oxyhemoglobin ABG Sodium ABG Chloride ABG Glucose Oxyhemoglobin Carboxyhemoglobin Sodium Potassium Chloride Carbon Dioxide BUN Creatinine Glucose POC Glucose 147 H 177 H 138 H Hemoglobin A1c Magnesium Ferritin AST ALT Alkaline Phosphatase Lactate Dehydrogenase C-Reactive Protein Total Protein Albumin Arterial Blood Glucose Coronavirus (PCR) 04/25/21 04/25/21 04/25/21 07:06 11:23 15:43 WBC MCV MCH MCHC RDW Lymph % (Auto) [place] % (Auto) Eos % (Auto) Lymph # (Auto) [place] # (Auto) Eos # (Auto) Baso # (Auto) Seg Neutrophils % Seg Neuts % (Manual) Lymphocytes % (Manual) Seg Neutrophils # Seg Neutrophils # Man Lymphocytes # (Manual) D-Dimer ABG pH POC ABG pCO2 POC ABG pO2 ABG pO2 ABG HCO3 ABG O2 Saturation ABG Base Excess ABG Oxyhemoglobin ABG Sodium ABG Chloride ABG Glucose Oxyhemoglobin Carboxyhemoglobin Sodium Potassium Chloride Carbon Dioxide BUN Creatinine Glucose POC Glucose 147 H 169 H 227 H Hemoglobin A1c Magnesium Ferritin AST ALT Alkaline Phosphatase Lactate Dehydrogenase C-Reactive Protein Total Protein Albumin Arterial Blood Glucose Coronavirus (PCR) 04/25/21 04/26/21 04/26/21 21:22 02:45 05:15 WBC MCV MCH MCHC RDW Lymph % (Auto) [place] % (Auto) Eos % (Auto) Lymph # (Auto) [place] # (Auto) Eos # (Auto) Baso # (Auto) Seg Neutrophils % Seg Neuts % (Manual) Lymphocytes % (Manual) Seg Neutrophils # Seg Neutrophils # Man Lymphocytes # (Manual) D-Dimer ABG pH POC ABG pCO2 POC ABG pO2 70.7 L ABG pO2 ABG HCO3 ABG O2 Saturation ABG Base Excess ABG Oxyhemoglobin 93.0 L ABG Sodium 132.7 L ABG Chloride ABG Glucose 115 H Oxyhemoglobin Carboxyhemoglobin Sodium Potassium Chloride 95.8 L Carbon Dioxide 32 H BUN 20 H Creatinine Glucose 102 H POC Glucose 196 H Hemoglobin A1c Magnesium Ferritin AST ALT Alkaline Phosphatase Lactate Dehydrogenase C-Reactive Protein Total Protein Albumin Arterial Blood Glucose 115 H Coronavirus (PCR) 04/26/21 04/26/21 04/26/21 11:49 16:09 21:07 WBC MCV MCH MCHC RDW Lymph % (Auto) [place] % (Auto) Eos % (Auto) Lymph # (Auto) [place] # (Auto) Eos # (Auto) Baso # (Auto) Seg Neutrophils % Seg Neuts % (Manual) Lymphocytes % (Manual) Seg Neutrophils # Seg Neutrophils # Man Lymphocytes # (Manual) D-Dimer ABG pH POC ABG pCO2 POC ABG pO2 ABG pO2 ABG HCO3 ABG O2 Saturation ABG Base Excess ABG Oxyhemoglobin ABG Sodium ABG Chloride ABG Glucose Oxyhemoglobin Carboxyhemoglobin Sodium Potassium Chloride Carbon Dioxide BUN Creatinine Glucose POC Glucose 114 H 188 H 136 H Hemoglobin A1c Magnesium Ferritin AST ALT Alkaline Phosphatase Lactate Dehydrogenase C-Reactive Protein Total Protein Albumin Arterial Blood Glucose Coronavirus (PCR) 04/27/21 04/27/21 04/28/21 17:34 22:12 08:26 WBC MCV MCH MCHC RDW Lymph % (Auto) [place] % (Auto) Eos % (Auto) Lymph # (Auto) [place] # (Auto) Eos # (Auto) Baso # (Auto) Seg Neutrophils % Seg Neuts % (Manual) Lymphocytes % (Manual) Seg Neutrophils # Seg Neutrophils # Man Lymphocytes # (Manual) D-Dimer ABG pH POC ABG pCO2 POC ABG pO2 ABG pO2 ABG HCO3 ABG O2 Saturation ABG Base Excess ABG Oxyhemoglobin ABG Sodium ABG Chloride ABG Glucose Oxyhemoglobin Carboxyhemoglobin Sodium Potassium Chloride Carbon Dioxide BUN Creatinine Glucose POC Glucose 128 H 159 H 69 L Hemoglobin A1c Magnesium Ferritin AST ALT Alkaline Phosphatase Lactate Dehydrogenase C-Reactive Protein Total Protein Albumin Arterial Blood Glucose Coronavirus (PCR) 04/28/21 04/28/21 04/29/21 12:22 21:11 06:05 WBC MCV MCH MCHC RDW Lymph % (Auto) [place] % (Auto) Eos % (Auto) Lymph # (Auto) [place] # (Auto) Eos # (Auto) Baso # (Auto) Seg Neutrophils % Seg Neuts % (Manual) Lymphocytes % (Manual) Seg Neutrophils # Seg Neutrophils # Man Lymphocytes # (Manual) D-Dimer ABG pH POC ABG pCO2 POC ABG pO2 ABG pO2 ABG HCO3 ABG O2 Saturation ABG Base Excess ABG Oxyhemoglobin ABG Sodium ABG Chloride ABG Glucose Oxyhemoglobin Carboxyhemoglobin Sodium 132 L Potassium Chloride 94.4 L Carbon Dioxide BUN Creatinine 0.2 L D Glucose 140 H POC Glucose 141 H 171 H Hemoglobin A1c Magnesium Ferritin AST ALT Alkaline Phosphatase Lactate Dehydrogenase C-Reactive Protein Total Protein Albumin Arterial Blood Glucose Coronavirus (PCR) 04/29/21 04/29/21 04/29/21 06:05 07:24 11:36 WBC MCV MCH MCHC 35 H RDW 15.9 H Lymph % (Auto) [place] % (Auto) Eos % (Auto) Lymph # (Auto) [place] # (Auto) Eos # (Auto) Baso # (Auto) Seg Neutrophils % Seg Neuts % (Manual) Lymphocytes % (Manual) Seg Neutrophils # Seg Neutrophils # Man Lymphocytes # (Manual) D-Dimer ABG pH POC ABG pCO2 POC ABG pO2 ABG pO2 ABG HCO3 ABG O2 Saturation ABG Base Excess ABG Oxyhemoglobin ABG Sodium ABG Chloride ABG Glucose Oxyhemoglobin Carboxyhemoglobin Sodium Potassium Chloride Carbon Dioxide BUN Creatinine Glucose POC Glucose 141 H 220 H Hemoglobin A1c Magnesium Ferritin AST ALT Alkaline Phosphatase Lactate Dehydrogenase C-Reactive Protein Total Protein Albumin Arterial Blood Glucose Coronavirus (PCR) 04/29/21 04/29/21 04/29/21 14:23 15:30 17:06 WBC MCV MCH MCHC RDW Lymph % (Auto) [place] % (Auto) Eos % (Auto) Lymph # (Auto) [place] # (Auto) Eos # (Auto) Baso # (Auto) Seg Neutrophils % Seg Neuts % (Manual) Lymphocytes % (Manual) Seg Neutrophils # Seg Neutrophils # Man Lymphocytes # (Manual) D-Dimer ABG pH POC ABG pCO2 POC ABG pO2 ABG pO2 52.6 L ABG HCO3 ABG O2 Saturation 86.4 L ABG Base Excess ABG Oxyhemoglobin ABG Sodium ABG Chloride ABG Glucose Oxyhemoglobin 84.6 L Carboxyhemoglobin Sodium Potassium Chloride Carbon Dioxide BUN Creatinine Glucose POC Glucose 173 H 158 H Hemoglobin A1c Magnesium Ferritin AST ALT Alkaline Phosphatase Lactate Dehydrogenase C-Reactive Protein Total Protein Albumin Arterial Blood Glucose Coronavirus (PCR) 04/29/21 04/30/21 04/30/21 21:27 07:16 08:00 WBC MCV MCH MCHC RDW 16.1 H Lymph % (Auto) [place] % (Auto) Eos % (Auto) Lymph # (Auto) [place] # (Auto) Eos # (Auto) Baso # (Auto) Seg Neutrophils % Seg Neuts % (Manual) Lymphocytes % (Manual) Seg Neutrophils # Seg Neutrophils # Man Lymphocytes # (Manual) D-Dimer ABG pH POC ABG pCO2 POC ABG pO2 ABG pO2 ABG HCO3 ABG O2 Saturation ABG Base Excess ABG Oxyhemoglobin ABG Sodium ABG Chloride ABG Glucose Oxyhemoglobin Carboxyhemoglobin Sodium Potassium Chloride Carbon Dioxide BUN Creatinine Glucose POC Glucose 244 H 175 H Hemoglobin A1c Magnesium Ferritin AST ALT Alkaline Phosphatase Lactate Dehydrogenase C-Reactive Protein Total Protein Albumin Arterial Blood Glucose Coronavirus (PCR) 04/30/21 04/30/21 04/30/21 08:00 08:00 11:03 WBC MCV MCH MCHC RDW Lymph % (Auto) [place] % (Auto) Eos % (Auto) Lymph # (Auto) [place] # (Auto) Eos # (Auto) Baso # (Auto) Seg Neutrophils % Seg Neuts % (Manual) Lymphocytes % (Manual) Seg Neutrophils # Seg Neutrophils # Man Lymphocytes # (Manual) D-Dimer 1796.87 H ABG pH POC ABG pCO2 POC ABG pO2 ABG pO2 ABG HCO3 ABG O2 Saturation ABG Base Excess ABG Oxyhemoglobin ABG Sodium ABG Chloride ABG Glucose Oxyhemoglobin Carboxyhemoglobin Sodium 135 L Potassium Chloride 96.3 L Carbon Dioxide BUN Creatinine 0.2 L Glucose 153 H POC Glucose 183 H Hemoglobin A1c Magnesium Ferritin AST 41 H ALT 76 H Alkaline Phosphatase 160 H Lactate Dehydrogenase 522 H C-Reactive Protein Total Protein 6.1 L Albumin 3.1 L Arterial Blood Glucose Coronavirus (PCR) 04/30/21 04/30/21 05/01/21 17:04 22:17 05:39 WBC MCV MCH MCHC RDW Lymph % (Auto) [place] % (Auto) Eos % (Auto) Lymph # (Auto) [place] # (Auto) Eos # (Auto) Baso # (Auto) Seg Neutrophils % Seg Neuts % (Manual) Lymphocytes % (Manual) Seg Neutrophils # Seg Neutrophils # Man Lymphocytes # (Manual) D-Dimer ABG pH POC ABG pCO2 POC ABG pO2 ABG pO2 ABG HCO3 ABG O2 Saturation ABG Base Excess ABG Oxyhemoglobin ABG Sodium ABG Chloride ABG Glucose Oxyhemoglobin Carboxyhemoglobin Sodium 133 L Potassium Chloride 92.1 L Carbon Dioxide BUN 24 H Creatinine 0.4 L D Glucose 269 H POC Glucose 167 H 208 H Hemoglobin A1c Magnesium Ferritin AST ALT 66 H Alkaline Phosphatase 142 H Lactate Dehydrogenase C-Reactive Protein Total Protein Albumin 3.2 L Arterial Blood Glucose Coronavirus (PCR) 05/01/21 05/01/21 05/01/21 05:39 05:39 07:45 WBC MCV MCH MCHC RDW 16.0 H Lymph % (Auto) [place] % (Auto) Eos % (Auto) Lymph # (Auto) [place] # (Auto) Eos # (Auto) Baso # (Auto) Seg Neutrophils % Seg Neuts % (Manual) Lymphocytes % (Manual) Seg Neutrophils # Seg Neutrophils # Man Lymphocytes # (Manual) D-Dimer 3984.95 H ABG pH POC ABG pCO2 POC ABG pO2 ABG pO2 ABG HCO3 ABG O2 Saturation ABG Base Excess ABG Oxyhemoglobin ABG Sodium ABG Chloride ABG Glucose Oxyhemoglobin Carboxyhemoglobin Sodium Potassium Chloride Carbon Dioxide BUN Creatinine Glucose POC Glucose 229 H Hemoglobin A1c Magnesium Ferritin AST ALT Alkaline Phosphatase Lactate Dehydrogenase C-Reactive Protein Total Protein Albumin Arterial Blood Glucose Coronavirus (PCR) 05/01/21 05/01/21 05/01/21 12:10 15:46 21:06 WBC MCV MCH MCHC RDW Lymph % (Auto) [place] % (Auto) Eos % (Auto) Lymph # (Auto) [place] # (Auto) Eos # (Auto) Baso # (Auto) Seg Neutrophils % Seg Neuts % (Manual) Lymphocytes % (Manual) Seg Neutrophils # Seg Neutrophils # Man Lymphocytes # (Manual) D-Dimer ABG pH POC ABG pCO2 POC ABG pO2 ABG pO2 ABG HCO3 ABG O2 Saturation ABG Base Excess ABG Oxyhemoglobin ABG Sodium ABG Chloride ABG Glucose Oxyhemoglobin Carboxyhemoglobin Sodium Potassium Chloride Carbon Dioxide BUN Creatinine Glucose POC Glucose 296 H 279 H 232 H Hemoglobin A1c Magnesium Ferritin AST ALT Alkaline Phosphatase Lactate Dehydrogenase C-Reactive Protein Total Protein Albumin Arterial Blood Glucose Coronavirus (PCR) 05/02/21 05/02/21 05/02/21 04:55 04:55 04:55 WBC MCV MCH MCHC RDW 16.1 H Lymph % (Auto) [place] % (Auto) Eos % (Auto) Lymph # (Auto) [place] # (Auto) Eos # (Auto) Baso # (Auto) Seg Neutrophils % Seg Neuts % (Manual) Lymphocytes % (Manual) Seg Neutrophils # Seg Neutrophils # Man Lymphocytes # (Manual) D-Dimer 1401.08 H ABG pH POC ABG pCO2 POC ABG pO2 ABG pO2 ABG HCO3 ABG O2 Saturation ABG Base Excess ABG Oxyhemoglobin ABG Sodium ABG Chloride ABG Glucose Oxyhemoglobin Carboxyhemoglobin Sodium 131 L Potassium Chloride 95.5 L Carbon Dioxide BUN 20 H Creatinine 0.3 L Glucose 288 H POC Glucose Hemoglobin A1c Magnesium Ferritin AST ALT Alkaline Phosphatase Lactate Dehydrogenase C-Reactive Protein Total Protein 6.0 L Albumin 3.1 L Arterial Blood Glucose Coronavirus (PCR) 05/02/21 05/02/21 05/02/21 07:53 11:45 15:25 WBC MCV MCH MCHC RDW Lymph % (Auto) [place] % (Auto) Eos % (Auto) Lymph # (Auto) [place] # (Auto) Eos # (Auto) Baso # (Auto) Seg Neutrophils % Seg Neuts % (Manual) Lymphocytes % (Manual) Seg Neutrophils # Seg Neutrophils # Man Lymphocytes # (Manual) D-Dimer ABG pH POC ABG pCO2 POC ABG pO2 ABG pO2 ABG HCO3 ABG O2 Saturation ABG Base Excess ABG Oxyhemoglobin ABG Sodium ABG Chloride ABG Glucose Oxyhemoglobin Carboxyhemoglobin Sodium Potassium Chloride Carbon Dioxide BUN Creatinine Glucose POC Glucose 180 H 228 H 275 H Hemoglobin A1c Magnesium Ferritin AST ALT Alkaline Phosphatase Lactate Dehydrogenase C-Reactive Protein Total Protein Albumin Arterial Blood Glucose Coronavirus (PCR) 05/02/21 05/03/21 05/03/21 22:56 04:30 04:49 WBC MCV MCH MCHC RDW Lymph % (Auto) [place] % (Auto) Eos % (Auto) Lymph # (Auto) [place] # (Auto) Eos # (Auto) Baso # (Auto) Seg Neutrophils % Seg Neuts % (Manual) Lymphocytes % (Manual) Seg Neutrophils # Seg Neutrophils # Man Lymphocytes # (Manual) D-Dimer ABG pH 7.229 L POC ABG pCO2 POC ABG pO2 65.3 L ABG pO2 ABG HCO3 ABG O2 Saturation ABG Base Excess ABG Oxyhemoglobin 87.8 L ABG Sodium 133.0 L ABG Chloride 97.0 L ABG Glucose 403 H Oxyhemoglobin Carboxyhemoglobin Sodium 130 L Potassium Chloride 94.9 L Carbon Dioxide BUN 20 H Creatinine 0.5 L D Glucose 359 H POC Glucose 293 H Hemoglobin A1c Magnesium Ferritin AST 54 H ALT 75 H Alkaline Phosphatase 138 H Lactate Dehydrogenase C-Reactive Protein Total Protein Albumin 3.6 L Arterial Blood Glucose 403 H Coronavirus (PCR) 05/03/21 05/03/21 05/03/21 05:27 11:26 17:57 WBC MCV MCH MCHC RDW Lymph % (Auto) [place] % (Auto) Eos % (Auto) Lymph # (Auto) [place] # (Auto) Eos # (Auto) Baso # (Auto) Seg Neutrophils % Seg Neuts % (Manual) Lymphocytes % (Manual) Seg Neutrophils # Seg Neutrophils # Man Lymphocytes # (Manual) D-Dimer ABG pH POC ABG pCO2 POC ABG pO2 ABG pO2 ABG HCO3 ABG O2 Saturation ABG Base Excess ABG Oxyhemoglobin ABG Sodium ABG Chloride ABG Glucose Oxyhemoglobin Carboxyhemoglobin Sodium Potassium Chloride Carbon Dioxide BUN Creatinine Glucose POC Glucose 361 H 297 H 226 H Hemoglobin A1c Magnesium Ferritin AST ALT Alkaline Phosphatase Lactate Dehydrogenase C-Reactive Protein Total Protein Albumin Arterial Blood Glucose Coronavirus (PCR) 05/03/21 05/04/21 05/04/21 23:12 05:12 07:30 WBC MCV MCH MCHC RDW Lymph % (Auto) [place] % (Auto) Eos % (Auto) Lymph # (Auto) [place] # (Auto) Eos # (Auto) Baso # (Auto) Seg Neutrophils % Seg Neuts % (Manual) Lymphocytes % (Manual) Seg Neutrophils # Seg Neutrophils # Man Lymphocytes # (Manual) D-Dimer ABG pH POC ABG pCO2 POC ABG pO2 ABG pO2 ABG HCO3 ABG O2 Saturation ABG Base Excess ABG Oxyhemoglobin ABG Sodium ABG Chloride ABG Glucose Oxyhemoglobin Carboxyhemoglobin Sodium Potassium Chloride Carbon Dioxide BUN Creatinine Glucose POC Glucose 282 H 285 H 254 H Hemoglobin A1c Magnesium Ferritin AST ALT Alkaline Phosphatase Lactate Dehydrogenase C-Reactive Protein Total Protein Albumin Arterial Blood Glucose Coronavirus (PCR) 05/04/21 05/04/21 05/04/21 08:58 11:45 16:07 WBC MCV MCH MCHC RDW Lymph % (Auto) [place] % (Auto) Eos % (Auto) Lymph # (Auto) [place] # (Auto) Eos # (Auto) Baso # (Auto) Seg Neutrophils % Seg Neuts % (Manual) Lymphocytes % (Manual) Seg Neutrophils # Seg Neutrophils # Man Lymphocytes # (Manual) D-Dimer ABG pH POC ABG pCO2 POC ABG pO2 ABG pO2 ABG HCO3 ABG O2 Saturation ABG Base Excess ABG Oxyhemoglobin ABG Sodium ABG Chloride ABG Glucose Oxyhemoglobin Carboxyhemoglobin Sodium 134 L Potassium Chloride Carbon Dioxide BUN 20 H Creatinine 0.3 L Glucose 267 H POC Glucose 244 H 297 H Hemoglobin A1c Magnesium Ferritin AST ALT Alkaline Phosphatase Lactate Dehydrogenase C-Reactive Protein Total Protein 6.0 L Albumin 3.2 L Arterial Blood Glucose Coronavirus (PCR) 05/04/21 05/05/21 05/05/21 23:32 05:00 05:13 WBC MCV MCH MCHC RDW Lymph % (Auto) [place] % (Auto) Eos % (Auto) Lymph # (Auto) [place] # (Auto) Eos # (Auto) Baso # (Auto) Seg Neutrophils % Seg Neuts % (Manual) Lymphocytes % (Manual) Seg Neutrophils # Seg Neutrophils # Man Lymphocytes # (Manual) D-Dimer ABG pH POC ABG pCO2 POC ABG pO2 ABG pO2 ABG HCO3 ABG O2 Saturation ABG Base Excess ABG Oxyhemoglobin ABG Sodium ABG Chloride ABG Glucose Oxyhemoglobin Carboxyhemoglobin Sodium 132 L Potassium Chloride 96.4 L Carbon Dioxide BUN 22 H Creatinine 0.3 L Glucose 228 H POC Glucose 154 H 260 H Hemoglobin A1c Magnesium Ferritin AST ALT 67 H Alkaline Phosphatase Lactate Dehydrogenase C-Reactive Protein Total Protein 6.1 L Albumin 3.2 L Arterial Blood Glucose Coronavirus (PCR) 05/05/21 05/05/21 05/05/21 11:32 17:49 23:07 WBC MCV MCH MCHC RDW Lymph % (Auto) [place] % (Auto) Eos % (Auto) Lymph # (Auto) [place] # (Auto) Eos # (Auto) Baso # (Auto) Seg Neutrophils % Seg Neuts % (Manual) Lymphocytes % (Manual) Seg Neutrophils # Seg Neutrophils # Man Lymphocytes # (Manual) D-Dimer ABG pH POC ABG pCO2 POC ABG pO2 ABG pO2 ABG HCO3 ABG O2 Saturation ABG Base Excess ABG Oxyhemoglobin ABG Sodium ABG Chloride ABG Glucose Oxyhemoglobin Carboxyhemoglobin Sodium Potassium Chloride Carbon Dioxide BUN Creatinine Glucose POC Glucose 279 H 308 H 213 H Hemoglobin A1c Magnesium Ferritin AST ALT Alkaline Phosphatase Lactate Dehydrogenase C-Reactive Protein Total Protein Albumin Arterial Blood Glucose Coronavirus (PCR) 05/06/21 05/06/21 05/06/21 05:00 05:00 05:20 WBC MCV MCH MCHC RDW 16.8 H Lymph % (Auto) [place] % (Auto) Eos % (Auto) Lymph # (Auto) [place] # (Auto) Eos # (Auto) Baso # (Auto) Seg Neutrophils % Seg Neuts % (Manual) 99.0 H Lymphocytes % (Manual) Seg Neutrophils # Seg Neutrophils # Man 10.9 H Lymphocytes # (Manual) 0.0 L D-Dimer ABG pH POC ABG pCO2 POC ABG pO2 ABG pO2 ABG HCO3 ABG O2 Saturation ABG Base Excess ABG Oxyhemoglobin ABG Sodium ABG Chloride ABG Glucose Oxyhemoglobin Carboxyhemoglobin Sodium 133 L Potassium Chloride Carbon Dioxide BUN 21 H Creatinine 0.3 L Glucose 259 H POC Glucose 308 H Hemoglobin A1c Magnesium Ferritin AST ALT Alkaline Phosphatase Lactate Dehydrogenase C-Reactive Protein Total Protein Albumin 3.2 L Arterial Blood Glucose Coronavirus (PCR) 05/06/21 05/06/21 05/06/21 11:24 17:54 21:32 WBC MCV MCH MCHC RDW Lymph % (Auto) [place] % (Auto) Eos % (Auto) Lymph # (Auto) [place] # (Auto) Eos # (Auto) Baso # (Auto) Seg Neutrophils % Seg Neuts % (Manual) Lymphocytes % (Manual) Seg Neutrophils # Seg Neutrophils # Man Lymphocytes # (Manual) D-Dimer ABG pH POC ABG pCO2 POC ABG pO2 ABG pO2 ABG HCO3 ABG O2 Saturation ABG Base Excess ABG Oxyhemoglobin ABG Sodium ABG Chloride ABG Glucose Oxyhemoglobin Carboxyhemoglobin Sodium Potassium Chloride Carbon Dioxide BUN Creatinine Glucose POC Glucose 262 H 124 H 246 H Hemoglobin A1c Magnesium Ferritin AST ALT Alkaline Phosphatase Lactate Dehydrogenase C-Reactive Protein Total Protein Albumin Arterial Blood Glucose Coronavirus (PCR) 05/06/21 05/07/21 05/07/21 23:10 04:54 04:54 WBC MCV MCH MCHC RDW Lymph % (Auto) [place] % (Auto) Eos % (Auto) Lymph # (Auto) [place] # (Auto) Eos # (Auto) Baso # (Auto) Seg Neutrophils % Seg Neuts % (Manual) Lymphocytes % (Manual) Seg Neutrophils # Seg Neutrophils # Man Lymphocytes # (Manual) D-Dimer 1609.28 H ABG pH POC ABG pCO2 POC ABG pO2 ABG pO2 ABG HCO3 ABG O2 Saturation ABG Base Excess ABG Oxyhemoglobin ABG Sodium ABG Chloride ABG Glucose Oxyhemoglobin Carboxyhemoglobin Sodium 136 L Potassium Chloride Carbon Dioxide BUN 23 H Creatinine 0.3 L Glucose 110 H POC Glucose 249 H Hemoglobin A1c Magnesium Ferritin AST ALT Alkaline Phosphatase Lactate Dehydrogenase C-Reactive Protein Total Protein 6.2 L Albumin 3.0 L Arterial Blood Glucose Coronavirus (PCR) 05/07/21 05/07/21 05/07/21 04:54 04:54 11:41 WBC MCV MCH MCHC RDW Lymph % (Auto) [place] % (Auto) Eos % (Auto) Lymph # (Auto) [place] # (Auto) Eos # (Auto) Baso # (Auto) Seg Neutrophils % Seg Neuts % (Manual) Lymphocytes % (Manual) Seg Neutrophils # Seg Neutrophils # Man Lymphocytes # (Manual) D-Dimer ABG pH POC ABG pCO2 POC ABG pO2 ABG pO2 ABG HCO3 ABG O2 Saturation ABG Base Excess ABG Oxyhemoglobin ABG Sodium ABG Chloride ABG Glucose Oxyhemoglobin Carboxyhemoglobin Sodium Potassium Chloride Carbon Dioxide BUN Creatinine Glucose POC Glucose 118 H Hemoglobin A1c Magnesium Ferritin 296.1 H AST ALT Alkaline Phosphatase Lactate Dehydrogenase 724 H C-Reactive Protein Total Protein Albumin Arterial Blood Glucose Coronavirus (PCR) 05/07/21 05/07/21 05/08/21 16:43 22:34 06:44 WBC MCV MCH MCHC RDW Lymph % (Auto) [place] % (Auto) Eos % (Auto) Lymph # (Auto) [place] # (Auto) Eos # (Auto) Baso # (Auto) Seg Neutrophils % Seg Neuts % (Manual) Lymphocytes % (Manual) Seg Neutrophils # Seg Neutrophils # Man Lymphocytes # (Manual) D-Dimer ABG pH POC ABG pCO2 POC ABG pO2 ABG pO2 ABG HCO3 ABG O2 Saturation ABG Base Excess ABG Oxyhemoglobin ABG Sodium ABG Chloride ABG Glucose Oxyhemoglobin Carboxyhemoglobin Sodium Potassium Chloride Carbon Dioxide BUN Creatinine Glucose POC Glucose 159 H 233 H 235 H Hemoglobin A1c Magnesium Ferritin AST ALT Alkaline Phosphatase Lactate Dehydrogenase C-Reactive Protein Total Protein Albumin Arterial Blood Glucose Coronavirus (PCR) 05/08/21 05/08/21 05/08/21 07:49 11:56 17:13 WBC MCV MCH MCHC RDW Lymph % (Auto) [place] % (Auto) Eos % (Auto) Lymph # (Auto) [place] # (Auto) Eos # (Auto) Baso # (Auto) Seg Neutrophils % Seg Neuts % (Manual) Lymphocytes % (Manual) Seg Neutrophils # Seg Neutrophils # Man Lymphocytes # (Manual) D-Dimer ABG pH POC ABG pCO2 POC ABG pO2 ABG pO2 ABG HCO3 ABG O2 Saturation ABG Base Excess ABG Oxyhemoglobin ABG Sodium ABG Chloride ABG Glucose Oxyhemoglobin Carboxyhemoglobin Sodium Potassium Chloride Carbon Dioxide BUN Creatinine Glucose POC Glucose 219 H 184 H 182 H Hemoglobin A1c Magnesium Ferritin AST ALT Alkaline Phosphatase Lactate Dehydrogenase C-Reactive Protein Total Protein Albumin Arterial Blood Glucose Coronavirus (PCR) 05/08/21 05/09/21 05/09/21 23:35 05:20 05:20 WBC MCV MCH MCHC RDW Lymph % (Auto) [place] % (Auto) Eos % (Auto) Lymph # (Auto) [place] # (Auto) Eos # (Auto) Baso # (Auto) Seg Neutrophils % Seg Neuts % (Manual) Lymphocytes % (Manual) Seg Neutrophils # Seg Neutrophils # Man Lymphocytes # (Manual) D-Dimer 1003.87 H ABG pH POC ABG pCO2 POC ABG pO2 ABG pO2 ABG HCO3 ABG O2 Saturation ABG Base Excess ABG Oxyhemoglobin ABG Sodium ABG Chloride ABG Glucose Oxyhemoglobin Carboxyhemoglobin Sodium Potassium Chloride Carbon Dioxide BUN Creatinine Glucose POC Glucose 198 H Hemoglobin A1c Magnesium Ferritin 378.7 H AST ALT Alkaline Phosphatase Lactate Dehydrogenase C-Reactive Protein Total Protein Albumin Arterial Blood Glucose Coronavirus (PCR) 08/05/09/21 05/09/21 05:20 06:04 12:53 WBC MCV MCH MCHC RDW Lymph % (Auto) [place] % (Auto) Eos % (Auto) Lymph # (Auto) [place] # (Auto) Eos # (Auto) Baso # (Auto) Seg Neutrophils % Seg Neuts % (Manual) Lymphocytes % (Manual) Seg Neutrophils # Seg Neutrophils # Man Lymphocytes # (Manual) D-Dimer ABG pH POC ABG pCO2 POC ABG pO2 ABG pO2 ABG HCO3 ABG O2 Saturation ABG Base Excess ABG Oxyhemoglobin ABG Sodium ABG Chloride ABG Glucose Oxyhemoglobin Carboxyhemoglobin Sodium Potassium Chloride Carbon Dioxide BUN Creatinine Glucose POC Glucose 159 H 180 H Hemoglobin A1c Magnesium Ferritin AST ALT Alkaline Phosphatase Lactate Dehydrogenase 558 H C-Reactive Protein 2.40 H Total Protein Albumin Arterial Blood Glucose Coronavirus (PCR) 05/09/21 05/09/21 05/10/21 16:43 21:27 10:18 WBC MCV MCH MCHC RDW Lymph % (Auto) [place] % (Auto) Eos % (Auto) Lymph # (Auto) [place] # (Auto) Eos # (Auto) Baso # (Auto) Seg Neutrophils % Seg Neuts % (Manual) Lymphocytes % (Manual) Seg Neutrophils # Seg Neutrophils # Man Lymphocytes # (Manual) D-Dimer ABG pH POC ABG pCO2 POC ABG pO2 ABG pO2 ABG HCO3 ABG O2 Saturation ABG Base Excess ABG Oxyhemoglobin ABG Sodium ABG Chloride ABG Glucose Oxyhemoglobin Carboxyhemoglobin Sodium Potassium Chloride Carbon Dioxide BUN Creatinine Glucose POC Glucose 212 H 285 H 261 H Hemoglobin A1c Magnesium Ferritin AST ALT Alkaline Phosphatase Lactate Dehydrogenase C-Reactive Protein Total Protein Albumin Arterial Blood Glucose Coronavirus (PCR) 05/10/21 05/10/21 05/11/21 17:58 18:02 00:29 WBC MCV MCH MCHC RDW Lymph % (Auto) [place] % (Auto) Eos % (Auto) Lymph # (Auto) [place] # (Auto) Eos # (Auto) Baso # (Auto) Seg Neutrophils % Seg Neuts % (Manual) Lymphocytes % (Manual) Seg Neutrophils # Seg Neutrophils # Man Lymphocytes # (Manual) D-Dimer ABG pH POC ABG pCO2 POC ABG pO2 ABG pO2 ABG HCO3 ABG O2 Saturation ABG Base Excess ABG Oxyhemoglobin ABG Sodium ABG Chloride ABG Glucose Oxyhemoglobin Carboxyhemoglobin Sodium Potassium Chloride Carbon Dioxide BUN Creatinine Glucose POC Glucose 213 H 179 H 149 H Hemoglobin A1c Magnesium Ferritin AST ALT Alkaline Phosphatase Lactate Dehydrogenase C-Reactive Protein Total Protein Albumin Arterial Blood Glucose Coronavirus (PCR) 05/11/21 05/11/21 05/11/21 05:22 11:32 17:00 WBC 14.9 H MCV MCH MCHC RDW 18.9 H Lymph % (Auto) 4.9 L [place] % (Auto) Eos % (Auto) Lymph # (Auto) 0.7 L [place] # (Auto) Eos # (Auto) Baso # (Auto) 0.2 H Seg Neutrophils % Seg Neuts % (Manual) Lymphocytes % (Manual) Seg Neutrophils # 13.3 H Seg Neutrophils # Man Lymphocytes # (Manual) D-Dimer ABG pH POC ABG pCO2 POC ABG pO2 ABG pO2 ABG HCO3 ABG O2 Saturation ABG Base Excess ABG Oxyhemoglobin ABG Sodium ABG Chloride ABG Glucose Oxyhemoglobin Carboxyhemoglobin Sodium Potassium Chloride Carbon Dioxide BUN Creatinine Glucose POC Glucose 162 H 179 H Hemoglobin A1c Magnesium Ferritin AST ALT Alkaline Phosphatase Lactate Dehydrogenase C-Reactive Protein Total Protein Albumin Arterial Blood Glucose Coronavirus (PCR) 05/11/21 05/11/21 05/11/21 17:00 17:33 22:03 WBC MCV MCH MCHC RDW Lymph % (Auto) [place] % (Auto) Eos % (Auto) Lymph # (Auto) [place] # (Auto) Eos # (Auto) Baso # (Auto) Seg Neutrophils % Seg Neuts % (Manual) Lymphocytes % (Manual) Seg Neutrophils # Seg Neutrophils # Man Lymphocytes # (Manual) D-Dimer ABG pH POC ABG pCO2 POC ABG pO2 ABG pO2 ABG HCO3 ABG O2 Saturation ABG Base Excess ABG Oxyhemoglobin ABG Sodium ABG Chloride ABG Glucose Oxyhemoglobin Carboxyhemoglobin Sodium 135 L Potassium Chloride 97.3 L Carbon Dioxide BUN 21 H Creatinine 0.3 L Glucose 133 H POC Glucose 140 H 282 H Hemoglobin A1c Magnesium Ferritin AST ALT 60 H Alkaline Phosphatase Lactate Dehydrogenase C-Reactive Protein Total Protein Albumin 3.1 L Arterial Blood Glucose Coronavirus (PCR) 05/12/21 05/12/21 05/12/21 04:05 04:05 04:05 WBC MCV MCH MCHC RDW 18.4 H Lymph % (Auto) [place] % (Auto) Eos % (Auto) Lymph # (Auto) [place] # (Auto) Eos # (Auto) Baso # (Auto) Seg Neutrophils % Seg Neuts % (Manual) 94.0 H Lymphocytes % (Manual) 4.0 L Seg Neutrophils # Seg Neutrophils # Man Lymphocytes # (Manual) 0.3 L D-Dimer ABG pH POC ABG pCO2 POC ABG pO2 ABG pO2 ABG HCO3 ABG O2 Saturation ABG Base Excess ABG Oxyhemoglobin ABG Sodium ABG Chloride ABG Glucose Oxyhemoglobin Carboxyhemoglobin Sodium 136 L Potassium Chloride Carbon Dioxide BUN 18 H Creatinine 0.2 L Glucose 142 H POC Glucose Hemoglobin A1c Magnesium Ferritin 350.7 H AST ALT Alkaline Phosphatase Lactate Dehydrogenase 546 H C-Reactive Protein Total Protein 6.1 L Albumin 3.0 L Arterial Blood Glucose Coronavirus (PCR) 05/12/21 05/12/21 05/12/21 05:11 11:17 16:27 WBC MCV MCH MCHC RDW Lymph % (Auto) [place] % (Auto) Eos % (Auto) Lymph # (Auto) [place] # (Auto) Eos # (Auto) Baso # (Auto) Seg Neutrophils % Seg Neuts % (Manual) Lymphocytes % (Manual) Seg Neutrophils # Seg Neutrophils # Man Lymphocytes # (Manual) D-Dimer ABG pH POC ABG pCO2 POC ABG pO2 ABG pO2 ABG HCO3 ABG O2 Saturation ABG Base Excess ABG Oxyhemoglobin ABG Sodium ABG Chloride ABG Glucose Oxyhemoglobin Carboxyhemoglobin Sodium Potassium Chloride Carbon Dioxide BUN Creatinine Glucose POC Glucose 152 H 190 H 261 H Hemoglobin A1c Magnesium Ferritin AST ALT Alkaline Phosphatase Lactate Dehydrogenase C-Reactive Protein Total Protein Albumin Arterial Blood Glucose Coronavirus (PCR) 05/12/21 05/13/21 05/13/21 20:55 11:08 21:41 WBC MCV MCH MCHC RDW Lymph % (Auto) [place] % (Auto) Eos % (Auto) Lymph # (Auto) [place] # (Auto) Eos # (Auto) Baso # (Auto) Seg Neutrophils % Seg Neuts % (Manual) Lymphocytes % (Manual) Seg Neutrophils # Seg Neutrophils # Man Lymphocytes # (Manual) D-Dimer ABG pH POC ABG pCO2 POC ABG pO2 ABG pO2 ABG HCO3 ABG O2 Saturation ABG Base Excess ABG Oxyhemoglobin ABG Sodium ABG Chloride ABG Glucose Oxyhemoglobin Carboxyhemoglobin Sodium Potassium Chloride Carbon Dioxide BUN Creatinine Glucose POC Glucose 231 H 106 H 174 H Hemoglobin A1c Magnesium Ferritin AST ALT Alkaline Phosphatase Lactate Dehydrogenase C-Reactive Protein Total Protein Albumin Arterial Blood Glucose Coronavirus (PCR) 05/14/21 05/14/21 05/14/21 00:53 02:23 06:06 WBC MCV MCH MCHC RDW Lymph % (Auto) [place] % (Auto) Eos % (Auto) Lymph # (Auto) [place] # (Auto) Eos # (Auto) Baso # (Auto) Seg Neutrophils % Seg Neuts % (Manual) Lymphocytes % (Manual) Seg Neutrophils # Seg Neutrophils # Man Lymphocytes # (Manual) D-Dimer ABG pH POC ABG pCO2 POC ABG pO2 ABG pO2 130.3 H ABG HCO3 30.6 H ABG O2 Saturation ABG Base Excess 4.9 H ABG Oxyhemoglobin ABG Sodium ABG Chloride ABG Glucose Oxyhemoglobin Carboxyhemoglobin Sodium Potassium Chloride Carbon Dioxide BUN Creatinine Glucose POC Glucose 229 H 119 H Hemoglobin A1c Magnesium Ferritin AST ALT Alkaline Phosphatase Lactate Dehydrogenase C-Reactive Protein Total Protein Albumin Arterial Blood Glucose Coronavirus (PCR) 05/14/21 05/14/21 05/14/21 07:13 07:13 07:13 WBC MCV MCH MCHC RDW Lymph % (Auto) [place] % (Auto) Eos % (Auto) Lymph # (Auto) [place] # (Auto) Eos # (Auto) Baso # (Auto) Seg Neutrophils % Seg Neuts % (Manual) Lymphocytes % (Manual) Seg Neutrophils # Seg Neutrophils # Man Lymphocytes # (Manual) D-Dimer 712.80 H ABG pH POC ABG pCO2 POC ABG pO2 ABG pO2 ABG HCO3 ABG O2 Saturation ABG Base Excess ABG Oxyhemoglobin ABG Sodium ABG Chloride ABG Glucose Oxyhemoglobin Carboxyhemoglobin Sodium 133 L Potassium Chloride 95.5 L Carbon Dioxide 32 H BUN Creatinine 0.2 L Glucose 137 H POC Glucose Hemoglobin A1c Magnesium Ferritin 283.5 H AST ALT 63 H Alkaline Phosphatase Lactate Dehydrogenase 563 H C-Reactive Protein Total Protein 6.1 L Albumin 3.0 L Arterial Blood Glucose Coronavirus (PCR) 05/14/21 05/14/21 05/14/21 12:21 15:33 21:50 WBC MCV MCH MCHC RDW Lymph % (Auto) [place] % (Auto) Eos % (Auto) Lymph # (Auto) [place] # (Auto) Eos # (Auto) Baso # (Auto) Seg Neutrophils % Seg Neuts % (Manual) Lymphocytes % (Manual) Seg Neutrophils # Seg Neutrophils # Man Lymphocytes # (Manual) D-Dimer ABG pH POC ABG pCO2 POC ABG pO2 ABG pO2 ABG HCO3 ABG O2 Saturation ABG Base Excess ABG Oxyhemoglobin ABG Sodium ABG Chloride ABG Glucose Oxyhemoglobin Carboxyhemoglobin Sodium Potassium Chloride Carbon Dioxide BUN Creatinine Glucose POC Glucose 143 H 204 H 202 H Hemoglobin A1c Magnesium Ferritin AST ALT Alkaline Phosphatase Lactate Dehydrogenase C-Reactive Protein Total Protein Albumin Arterial Blood Glucose Coronavirus (PCR) 05/15/21 05/15/21 05/15/21 05:05 11:12 16:39 WBC MCV MCH MCHC RDW Lymph % (Auto) [place] % (Auto) Eos % (Auto) Lymph # (Auto) [place] # (Auto) Eos # (Auto) Baso # (Auto) Seg Neutrophils % Seg Neuts % (Manual) Lymphocytes % (Manual) Seg Neutrophils # Seg Neutrophils # Man Lymphocytes # (Manual) D-Dimer ABG pH POC ABG pCO2 POC ABG pO2 ABG pO2 ABG HCO3 ABG O2 Saturation ABG Base Excess ABG Oxyhemoglobin ABG Sodium ABG Chloride ABG Glucose Oxyhemoglobin Carboxyhemoglobin Sodium Potassium Chloride Carbon Dioxide BUN Creatinine Glucose POC Glucose 125 H 201 H 241 H Hemoglobin A1c Magnesium Ferritin AST ALT Alkaline Phosphatase Lactate Dehydrogenase C-Reactive Protein Total Protein Albumin Arterial Blood Glucose Coronavirus (PCR) 05/15/21 05/16/21 05/16/21 21:31 05:04 10:40 WBC MCV MCH MCHC RDW Lymph % (Auto) [place] % (Auto) Eos % (Auto) Lymph # (Auto) [place] # (Auto) Eos # (Auto) Baso # (Auto) Seg Neutrophils % Seg Neuts % (Manual) Lymphocytes % (Manual) Seg Neutrophils # Seg Neutrophils # Man Lymphocytes # (Manual) D-Dimer ABG pH POC ABG pCO2 POC ABG pO2 ABG pO2 ABG HCO3 ABG O2 Saturation ABG Base Excess ABG Oxyhemoglobin ABG Sodium ABG Chloride ABG Glucose Oxyhemoglobin Carboxyhemoglobin Sodium Potassium Chloride Carbon Dioxide BUN Creatinine Glucose POC Glucose 234 H 123 H 231 H Hemoglobin A1c Magnesium Ferritin AST ALT Alkaline Phosphatase Lactate Dehydrogenase C-Reactive Protein Total Protein Albumin Arterial Blood Glucose Coronavirus (PCR) 05/16/21 05/16/2121 18:23 21:29 06:20 WBC MCV MCH MCHC RDW 18.8 H Lymph % (Auto) 10.2 L [place] % (Auto) Eos % (Auto) Lymph # (Auto) 0.8 L [place] # (Auto) Eos # (Auto) Baso # (Auto) Seg Neutrophils % 85.8 H Seg Neuts % (Manual) Lymphocytes % (Manual) Seg Neutrophils # Seg Neutrophils # Man Lymphocytes # (Manual) D-Dimer ABG pH POC ABG pCO2 POC ABG pO2 ABG pO2 ABG HCO3 ABG O2 Saturation ABG Base Excess ABG Oxyhemoglobin ABG Sodium ABG Chloride ABG Glucose Oxyhemoglobin Carboxyhemoglobin Sodium Potassium Chloride Carbon Dioxide BUN Creatinine Glucose POC Glucose 266 H 234 H Hemoglobin A1c Magnesium Ferritin AST ALT Alkaline Phosphatase Lactate Dehydrogenase C-Reactive Protein Total Protein Albumin Arterial Blood Glucose Coronavirus (PCR) 05/17/21 05/17/21 05/17/21 06:20 11:06 16:36 WBC MCV MCH MCHC RDW Lymph % (Auto) [place] % (Auto) Eos % (Auto) Lymph # (Auto) [place] # (Auto) Eos # (Auto) Baso # (Auto) Seg Neutrophils % Seg Neuts % (Manual) Lymphocytes % (Manual) Seg Neutrophils # Seg Neutrophils # Man Lymphocytes # (Manual) D-Dimer ABG pH POC ABG pCO2 POC ABG pO2 ABG pO2 ABG HCO3 ABG O2 Saturation ABG Base Excess ABG Oxyhemoglobin ABG Sodium ABG Chloride ABG Glucose Oxyhemoglobin Carboxyhemoglobin Sodium Potassium Chloride Carbon Dioxide 33 H BUN Creatinine 0.2 L Glucose 101 H POC Glucose 209 H 180 H Hemoglobin A1c Magnesium Ferritin AST ALT Alkaline Phosphatase Lactate Dehydrogenase C-Reactive Protein Total Protein Albumin Arterial Blood Glucose Coronavirus (PCR) 05/17/21 05/18/21 05/18/21 21:06 12:00 15:06 WBC MCV MCH MCHC RDW Lymph % (Auto) [place] % (Auto) Eos % (Auto) Lymph # (Auto) [place] # (Auto) Eos # (Auto) Baso # (Auto) Seg Neutrophils % Seg Neuts % (Manual) Lymphocytes % (Manual) Seg Neutrophils # Seg Neutrophils # Man Lymphocytes # (Manual) D-Dimer 874.02 H ABG pH POC ABG pCO2 POC ABG pO2 ABG pO2 ABG HCO3 ABG O2 Saturation ABG Base Excess ABG Oxyhemoglobin ABG Sodium ABG Chloride ABG Glucose Oxyhemoglobin Carboxyhemoglobin Sodium Potassium Chloride Carbon Dioxide BUN Creatinine Glucose POC Glucose 256 H 139 H Hemoglobin A1c Magnesium Ferritin AST ALT Alkaline Phosphatase Lactate Dehydrogenase C-Reactive Protein Total Protein Albumin Arterial Blood Glucose Coronavirus (PCR) 05/18/21 05/18/21 05/18/21 15:06 15:06 16:08 WBC MCV MCH MCHC RDW Lymph % (Auto) [place] % (Auto) Eos % (Auto) Lymph # (Auto) [place] # (Auto) Eos # (Auto) Baso # (Auto) Seg Neutrophils % Seg Neuts % (Manual) Lymphocytes % (Manual) Seg Neutrophils # Seg Neutrophils # Man Lymphocytes # (Manual) D-Dimer ABG pH POC ABG pCO2 POC ABG pO2 ABG pO2 ABG HCO3 ABG O2 Saturation ABG Base Excess ABG Oxyhemoglobin ABG Sodium ABG Chloride ABG Glucose Oxyhemoglobin Carboxyhemoglobin Sodium Potassium Chloride Carbon Dioxide BUN Creatinine Glucose POC Glucose 178 H Hemoglobin A1c Magnesium Ferritin 289.6 H AST ALT Alkaline Phosphatase Lactate Dehydrogenase 605 H C-Reactive Protein Total Protein Albumin Arterial Blood Glucose Coronavirus (PCR) 05/18/21 05/19/21 05/19/21 21:22 11:57 15:26 WBC MCV MCH MCHC RDW Lymph % (Auto) [place] % (Auto) Eos % (Auto) Lymph # (Auto) [place] # (Auto) Eos # (Auto) Baso # (Auto) Seg Neutrophils % Seg Neuts % (Manual) Lymphocytes % (Manual) Seg Neutrophils # Seg Neutrophils # Man Lymphocytes # (Manual) D-Dimer ABG pH POC ABG pCO2 POC ABG pO2 ABG pO2 ABG HCO3 ABG O2 Saturation ABG Base Excess ABG Oxyhemoglobin ABG Sodium ABG Chloride ABG Glucose Oxyhemoglobin Carboxyhemoglobin Sodium Potassium Chloride Carbon Dioxide BUN Creatinine Glucose POC Glucose 241 H 201 H 209 H Hemoglobin A1c Magnesium Ferritin AST ALT Alkaline Phosphatase Lactate Dehydrogenase C-Reactive Protein Total Protein Albumin Arterial Blood Glucose Coronavirus (PCR) 05/19/21 05/20/21 05/20/21 20:59 07:38 08:01 WBC MCV MCH MCHC RDW 19.7 H Lymph % (Auto) 8.3 L [place] % (Auto) Eos % (Auto) Lymph # (Auto) 0.8 L [place] # (Auto) Eos # (Auto) Baso # (Auto) Seg Neutrophils % 88.6 H Seg Neuts % (Manual) Lymphocytes % (Manual) Seg Neutrophils # 8.4 H Seg Neutrophils # Man Lymphocytes # (Manual) D-Dimer ABG pH POC ABG pCO2 POC ABG pO2 ABG pO2 ABG HCO3 ABG O2 Saturation ABG Base Excess ABG Oxyhemoglobin ABG Sodium ABG Chloride ABG Glucose Oxyhemoglobin Carboxyhemoglobin Sodium Potassium Chloride Carbon Dioxide BUN Creatinine Glucose POC Glucose 226 H 130 H Hemoglobin A1c Magnesium Ferritin AST ALT Alkaline Phosphatase Lactate Dehydrogenase C-Reactive Protein Total Protein Albumin Arterial Blood Glucose Coronavirus (PCR) 05/20/21 05/20/21 05/20/21 08:01 11:00 16:43 WBC MCV MCH MCHC RDW Lymph % (Auto) [place] % (Auto) Eos % (Auto) Lymph # (Auto) [place] # (Auto) Eos # (Auto) Baso # (Auto) Seg Neutrophils % Seg Neuts % (Manual) Lymphocytes % (Manual) Seg Neutrophils # Seg Neutrophils # Man Lymphocytes # (Manual) D-Dimer ABG pH POC ABG pCO2 POC ABG pO2 ABG pO2 ABG HCO3 ABG O2 Saturation ABG Base Excess ABG Oxyhemoglobin ABG Sodium ABG Chloride ABG Glucose Oxyhemoglobin Carboxyhemoglobin Sodium Potassium Chloride Carbon Dioxide BUN 18 H Creatinine 0.2 L Glucose 132 H POC Glucose 237 H 240 H Hemoglobin A1c Magnesium Ferritin AST ALT Alkaline Phosphatase Lactate Dehydrogenase C-Reactive Protein Total Protein Albumin Arterial Blood Glucose Coronavirus (PCR) 05/20/21 05/21/21 05/21/21 21:21 07:35 11:32 WBC MCV MCH MCHC RDW Lymph % (Auto) [place] % (Auto) Eos % (Auto) Lymph # (Auto) [place] # (Auto) Eos # (Auto) Baso # (Auto) Seg Neutrophils % Seg Neuts % (Manual) Lymphocytes % (Manual) Seg Neutrophils # Seg Neutrophils # Man Lymphocytes # (Manual) D-Dimer ABG pH POC ABG pCO2 POC ABG pO2 ABG pO2 ABG HCO3 ABG O2 Saturation ABG Base Excess ABG Oxyhemoglobin ABG Sodium ABG Chloride ABG Glucose Oxyhemoglobin Carboxyhemoglobin Sodium Potassium Chloride Carbon Dioxide BUN Creatinine Glucose POC Glucose 241 H 162 H 171 H Hemoglobin A1c Magnesium Ferritin AST ALT Alkaline Phosphatase Lactate Dehydrogenase C-Reactive Protein Total Protein Albumin Arterial Blood Glucose Coronavirus (PCR) 05/21/21 05/21/21 05/22/21 16:22 20:43 05:14 WBC MCV MCH MCHC RDW Lymph % (Auto) [place] % (Auto) Eos % (Auto) Lymph # (Auto) [place] # (Auto) Eos # (Auto) Baso # (Auto) Seg Neutrophils % Seg Neuts % (Manual) Lymphocytes % (Manual) Seg Neutrophils # Seg Neutrophils # Man Lymphocytes # (Manual) D-Dimer ABG pH POC ABG pCO2 POC ABG pO2 ABG pO2 ABG HCO3 ABG O2 Saturation ABG Base Excess ABG Oxyhemoglobin ABG Sodium ABG Chloride ABG Glucose Oxyhemoglobin Carboxyhemoglobin Sodium Potassium Chloride Carbon Dioxide BUN Creatinine Glucose POC Glucose 244 H 299 H 140 H Hemoglobin A1c Magnesium Ferritin AST ALT Alkaline Phosphatase Lactate Dehydrogenase C-Reactive Protein Total Protein Albumin Arterial Blood Glucose Coronavirus (PCR) 05/22/21 05/22/21 05/22/21 08:45 11:54 16:15 WBC MCV MCH MCHC RDW Lymph % (Auto) [place] % (Auto) Eos % (Auto) Lymph # (Auto) [place] # (Auto) Eos # (Auto) Baso # (Auto) Seg Neutrophils % Seg Neuts % (Manual) Lymphocytes % (Manual) Seg Neutrophils # Seg Neutrophils # Man Lymphocytes # (Manual) D-Dimer ABG pH POC ABG pCO2 POC ABG pO2 ABG pO2 ABG HCO3 ABG O2 Saturation ABG Base Excess ABG Oxyhemoglobin ABG Sodium ABG Chloride ABG Glucose Oxyhemoglobin Carboxyhemoglobin Sodium Potassium Chloride Carbon Dioxide BUN Creatinine Glucose POC Glucose 133 H 265 H 221 H Hemoglobin A1c Magnesium Ferritin AST ALT Alkaline Phosphatase Lactate Dehydrogenase C-Reactive Protein Total Protein Albumin Arterial Blood Glucose Coronavirus (PCR) 05/22/21 05/23/21 05/23/21 21:43 08:20 09:50 WBC MCV MCH MCHC RDW Lymph % (Auto) [place] % (Auto) Eos % (Auto) Lymph # (Auto) [place] # (Auto) Eos # (Auto) Baso # (Auto) Seg Neutrophils % Seg Neuts % (Manual) Lymphocytes % (Manual) Seg Neutrophils # Seg Neutrophils # Man Lymphocytes # (Manual) D-Dimer 910.38 H ABG pH POC ABG pCO2 POC ABG pO2 ABG pO2 ABG HCO3 ABG O2 Saturation ABG Base Excess ABG Oxyhemoglobin ABG Sodium ABG Chloride ABG Glucose Oxyhemoglobin Carboxyhemoglobin Sodium Potassium Chloride Carbon Dioxide BUN Creatinine Glucose POC Glucose 262 H 140 H Hemoglobin A1c Magnesium Ferritin AST ALT Alkaline Phosphatase Lactate Dehydrogenase C-Reactive Protein Total Protein Albumin Arterial Blood Glucose Coronavirus (PCR) 05/23/21 05/23/21 05/23/21 09:50 09:50 10:52 WBC MCV MCH MCHC RDW Lymph % (Auto) [place] % (Auto) Eos % (Auto) Lymph # (Auto) [place] # (Auto) Eos # (Auto) Baso # (Auto) Seg Neutrophils % Seg Neuts % (Manual) Lymphocytes % (Manual) Seg Neutrophils # Seg Neutrophils # Man Lymphocytes # (Manual) D-Dimer ABG pH POC ABG pCO2 POC ABG pO2 ABG pO2 ABG HCO3 ABG O2 Saturation ABG Base Excess ABG Oxyhemoglobin ABG Sodium ABG Chloride ABG Glucose Oxyhemoglobin Carboxyhemoglobin Sodium Potassium Chloride Carbon Dioxide BUN Creatinine Glucose POC Glucose 241 H Hemoglobin A1c Magnesium Ferritin 244.9 H AST ALT Alkaline Phosphatase Lactate Dehydrogenase 584 H C-Reactive Protein Total Protein Albumin Arterial Blood Glucose Coronavirus (PCR) 05/23/21 05/23/21 05/24/21 17:24 21:52 07:44 WBC MCV MCH MCHC RDW Lymph % (Auto) [place] % (Auto) Eos % (Auto) Lymph # (Auto) [place] # (Auto) Eos # (Auto) Baso # (Auto) Seg Neutrophils % Seg Neuts % (Manual) Lymphocytes % (Manual) Seg Neutrophils # Seg Neutrophils # Man Lymphocytes # (Manual) D-Dimer ABG pH POC ABG pCO2 POC ABG pO2 ABG pO2 ABG HCO3 ABG O2 Saturation ABG Base Excess ABG Oxyhemoglobin ABG Sodium ABG Chloride ABG Glucose Oxyhemoglobin Carboxyhemoglobin Sodium Potassium Chloride Carbon Dioxide BUN Creatinine Glucose POC Glucose 197 H 289 H 161 H Hemoglobin A1c Magnesium Ferritin AST ALT Alkaline Phosphatase Lactate Dehydrogenase C-Reactive Protein Total Protein Albumin Arterial Blood Glucose Coronavirus (PCR) 05/24/21 05/24/21 05/24/21 11:17 17:51 21:26 WBC MCV MCH MCHC RDW Lymph % (Auto) [place] % (Auto) Eos % (Auto) Lymph # (Auto) [place] # (Auto) Eos # (Auto) Baso # (Auto) Seg Neutrophils % Seg Neuts % (Manual) Lymphocytes % (Manual) Seg Neutrophils # Seg Neutrophils # Man Lymphocytes # (Manual) D-Dimer ABG pH POC ABG pCO2 POC ABG pO2 ABG pO2 ABG HCO3 ABG O2 Saturation ABG Base Excess ABG Oxyhemoglobin ABG Sodium ABG Chloride ABG Glucose Oxyhemoglobin Carboxyhemoglobin Sodium Potassium Chloride Carbon Dioxide BUN Creatinine Glucose POC Glucose 308 H 175 H 198 H Hemoglobin A1c Magnesium Ferritin AST ALT Alkaline Phosphatase Lactate Dehydrogenase C-Reactive Protein Total Protein Albumin Arterial Blood Glucose Coronavirus (PCR) 05/25/21 05/25/21 05/25/21 08:14 11:13 17:13 WBC MCV MCH MCHC RDW Lymph % (Auto) [place] % (Auto) Eos % (Auto) Lymph # (Auto) [place] # (Auto) Eos # (Auto) Baso # (Auto) Seg Neutrophils % Seg Neuts % (Manual) Lymphocytes % (Manual) Seg Neutrophils # Seg Neutrophils # Man Lymphocytes # (Manual) D-Dimer ABG pH POC ABG pCO2 POC ABG pO2 ABG pO2 ABG HCO3 ABG O2 Saturation ABG Base Excess ABG Oxyhemoglobin ABG Sodium ABG Chloride ABG Glucose Oxyhemoglobin Carboxyhemoglobin Sodium Potassium Chloride Carbon Dioxide BUN Creatinine Glucose POC Glucose 203 H 339 H 235 H Hemoglobin A1c Magnesium Ferritin AST ALT Alkaline Phosphatase Lactate Dehydrogenase C-Reactive Protein Total Protein Albumin Arterial Blood Glucose Coronavirus (PCR) 05/25/21 05/26/21 05/26/21 21:03 07:33 11:19 WBC MCV MCH MCHC RDW Lymph % (Auto) [place] % (Auto) Eos % (Auto) Lymph # (Auto) [place] # (Auto) Eos # (Auto) Baso # (Auto) Seg Neutrophils % Seg Neuts % (Manual) Lymphocytes % (Manual) Seg Neutrophils # Seg Neutrophils # Man Lymphocytes # (Manual) D-Dimer ABG pH POC ABG pCO2 POC ABG pO2 ABG pO2 ABG HCO3 ABG O2 Saturation ABG Base Excess ABG Oxyhemoglobin ABG Sodium ABG Chloride ABG Glucose Oxyhemoglobin Carboxyhemoglobin Sodium Potassium Chloride Carbon Dioxide BUN Creatinine Glucose POC Glucose 263 H 156 H 288 H Hemoglobin A1c Magnesium Ferritin AST ALT Alkaline Phosphatase Lactate Dehydrogenase C-Reactive Protein Total Protein Albumin Arterial Blood Glucose Coronavirus (PCR) 05/26/21 05/26/21 05/27/21 16:26 20:55 07:38 WBC MCV MCH MCHC RDW Lymph % (Auto) [place] % (Auto) Eos % (Auto) Lymph # (Auto) [place] # (Auto) Eos # (Auto) Baso # (Auto) Seg Neutrophils % Seg Neuts % (Manual) Lymphocytes % (Manual) Seg Neutrophils # Seg Neutrophils # Man Lymphocytes # (Manual) D-Dimer ABG pH POC ABG pCO2 POC ABG pO2 ABG pO2 ABG HCO3 ABG O2 Saturation ABG Base Excess ABG Oxyhemoglobin ABG Sodium ABG Chloride ABG Glucose Oxyhemoglobin Carboxyhemoglobin Sodium Potassium Chloride Carbon Dioxide BUN Creatinine Glucose POC Glucose 286 H 293 H 115 H Hemoglobin A1c Magnesium Ferritin AST ALT Alkaline Phosphatase Lactate Dehydrogenase C-Reactive Protein Total Protein Albumin Arterial Blood Glucose Coronavirus (PCR) 05/27/21 05/27/21 05/27/21 11:46 15:58 21:02 WBC MCV MCH MCHC RDW Lymph % (Auto) [place] % (Auto) Eos % (Auto) Lymph # (Auto) [place] # (Auto) Eos # (Auto) Baso # (Auto) Seg Neutrophils % Seg Neuts % (Manual) Lymphocytes % (Manual) Seg Neutrophils # Seg Neutrophils # Man Lymphocytes # (Manual) D-Dimer ABG pH POC ABG pCO2 POC ABG pO2 ABG pO2 ABG HCO3 ABG O2 Saturation ABG Base Excess ABG Oxyhemoglobin ABG Sodium ABG Chloride ABG Glucose Oxyhemoglobin Carboxyhemoglobin Sodium Potassium Chloride Carbon Dioxide BUN Creatinine Glucose POC Glucose 260 H 318 H 246 H Hemoglobin A1c Magnesium Ferritin AST ALT Alkaline Phosphatase Lactate Dehydrogenase C-Reactive Protein Total Protein Albumin Arterial Blood Glucose Coronavirus (PCR) 05/28/21 05/28/21 05/28/21 07:34 11:31 16:36 WBC MCV MCH MCHC RDW Lymph % (Auto) [place] % (Auto) Eos % (Auto) Lymph # (Auto) [place] # (Auto) Eos # (Auto) Baso # (Auto) Seg Neutrophils % Seg Neuts % (Manual) Lymphocytes % (Manual) Seg Neutrophils # Seg Neutrophils # Man Lymphocytes # (Manual) D-Dimer ABG pH POC ABG pCO2 POC ABG pO2 ABG pO2 ABG HCO3 ABG O2 Saturation ABG Base Excess ABG Oxyhemoglobin ABG Sodium ABG Chloride ABG Glucose Oxyhemoglobin Carboxyhemoglobin Sodium Potassium Chloride Carbon Dioxide BUN Creatinine Glucose POC Glucose 185 H 297 H 183 H Hemoglobin A1c Magnesium Ferritin AST ALT Alkaline Phosphatase Lactate Dehydrogenase C-Reactive Protein Total Protein Albumin Arterial Blood Glucose Coronavirus (PCR) 05/28/21 05/29/21 05/29/21 21:19 07:34 11:19 WBC MCV MCH MCHC RDW Lymph % (Auto) [place] % (Auto) Eos % (Auto) Lymph # (Auto) [place] # (Auto) Eos # (Auto) Baso # (Auto) Seg Neutrophils % Seg Neuts % (Manual) Lymphocytes % (Manual) Seg Neutrophils # Seg Neutrophils # Man Lymphocytes # (Manual) D-Dimer ABG pH POC ABG pCO2 POC ABG pO2 ABG pO2 ABG HCO3 ABG O2 Saturation ABG Base Excess ABG Oxyhemoglobin ABG Sodium ABG Chloride ABG Glucose Oxyhemoglobin Carboxyhemoglobin Sodium Potassium Chloride Carbon Dioxide BUN Creatinine Glucose POC Glucose 274 H 139 H 293 H Hemoglobin A1c Magnesium Ferritin AST ALT Alkaline Phosphatase Lactate Dehydrogenase C-Reactive Protein Total Protein Albumin Arterial Blood Glucose Coronavirus (PCR) 05/29/21 05/29/21 05/30/21 16:36 22:44 05:55 WBC MCV MCH MCHC RDW 21.3 H Lymph % (Auto) 8.0 L [place] % (Auto) Eos % (Auto) Lymph # (Auto) 0.6 L [place] # (Auto) Eos # (Auto) Baso # (Auto) Seg Neutrophils % 88.6 H Seg Neuts % (Manual) Lymphocytes % (Manual) Seg Neutrophils # Seg Neutrophils # Man Lymphocytes # (Manual) D-Dimer ABG pH POC ABG pCO2 POC ABG pO2 ABG pO2 ABG HCO3 ABG O2 Saturation ABG Base Excess ABG Oxyhemoglobin ABG Sodium ABG Chloride ABG Glucose Oxyhemoglobin Carboxyhemoglobin Sodium Potassium Chloride Carbon Dioxide BUN Creatinine Glucose POC Glucose 299 H 160 H Hemoglobin A1c Magnesium Ferritin AST ALT Alkaline Phosphatase Lactate Dehydrogenase C-Reactive Protein Total Protein Albumin Arterial Blood Glucose Coronavirus (PCR) 05/30/21 05/30/21 05/30/21 05:55 08:04 11:13 WBC MCV MCH MCHC RDW Lymph % (Auto) [place] % (Auto) Eos % (Auto) Lymph # (Auto) [place] # (Auto) Eos # (Auto) Baso # (Auto) Seg Neutrophils % Seg Neuts % (Manual) Lymphocytes % (Manual) Seg Neutrophils # Seg Neutrophils # Man Lymphocytes # (Manual) D-Dimer ABG pH POC ABG pCO2 POC ABG pO2 ABG pO2 ABG HCO3 ABG O2 Saturation ABG Base Excess ABG Oxyhemoglobin ABG Sodium ABG Chloride ABG Glucose Oxyhemoglobin Carboxyhemoglobin Sodium Potassium Chloride Carbon Dioxide BUN 19 H Creatinine 0.2 L Glucose 209 H POC Glucose 157 H 275 H Hemoglobin A1c Magnesium Ferritin AST ALT Alkaline Phosphatase Lactate Dehydrogenase C-Reactive Protein Total Protein Albumin Arterial Blood Glucose Coronavirus (PCR) 05/30/21 05/30/21 05/31/21 17:08 22:12 07:36 WBC MCV MCH MCHC RDW Lymph % (Auto) [place] % (Auto) Eos % (Auto) Lymph # (Auto) [place] # (Auto) Eos # (Auto) Baso # (Auto) Seg Neutrophils % Seg Neuts % (Manual) Lymphocytes % (Manual) Seg Neutrophils # Seg Neutrophils # Man Lymphocytes # (Manual) D-Dimer ABG pH POC ABG pCO2 POC ABG pO2 ABG pO2 ABG HCO3 ABG O2 Saturation ABG Base Excess ABG Oxyhemoglobin ABG Sodium ABG Chloride ABG Glucose Oxyhemoglobin Carboxyhemoglobin Sodium Potassium Chloride Carbon Dioxide BUN Creatinine Glucose POC Glucose 154 H 275 H 138 H Hemoglobin A1c Magnesium Ferritin AST ALT Alkaline Phosphatase Lactate Dehydrogenase C-Reactive Protein Total Protein Albumin Arterial Blood Glucose Coronavirus (PCR) 05/31/21 05/31/21 05/31/21 11:17 16:55 21:25 WBC MCV MCH MCHC RDW Lymph % (Auto) [place] % (Auto) Eos % (Auto) Lymph # (Auto) [place] # (Auto) Eos # (Auto) Baso # (Auto) Seg Neutrophils % Seg Neuts % (Manual) Lymphocytes % (Manual) Seg Neutrophils # Seg Neutrophils # Man Lymphocytes # (Manual) D-Dimer ABG pH POC ABG pCO2 POC ABG pO2 ABG pO2 ABG HCO3 ABG O2 Saturation ABG Base Excess ABG Oxyhemoglobin ABG Sodium ABG Chloride ABG Glucose Oxyhemoglobin Carboxyhemoglobin Sodium Potassium Chloride Carbon Dioxide BUN Creatinine Glucose POC Glucose 258 H 215 H 318 H Hemoglobin A1c Magnesium Ferritin AST ALT Alkaline Phosphatase Lactate Dehydrogenase C-Reactive Protein Total Protein Albumin Arterial Blood Glucose Coronavirus (PCR) 06/01/21 06/01/21 06/01/21 07:23 11:38 16:52 WBC MCV MCH MCHC RDW Lymph % (Auto) [place] % (Auto) Eos % (Auto) Lymph # (Auto) [place] # (Auto) Eos # (Auto) Baso # (Auto) Seg Neutrophils % Seg Neuts % (Manual) Lymphocytes % (Manual) Seg Neutrophils # Seg Neutrophils # Man Lymphocytes # (Manual) D-Dimer ABG pH POC ABG pCO2 POC ABG pO2 ABG pO2 ABG HCO3 ABG O2 Saturation ABG Base Excess ABG Oxyhemoglobin ABG Sodium ABG Chloride ABG Glucose Oxyhemoglobin Carboxyhemoglobin Sodium Potassium Chloride Carbon Dioxide BUN Creatinine Glucose POC Glucose 157 H 259 H 150 H Hemoglobin A1c Magnesium Ferritin AST ALT Alkaline Phosphatase Lactate Dehydrogenase C-Reactive Protein Total Protein Albumin Arterial Blood Glucose Coronavirus (PCR) 06/01/21 06/02/21 06/02/21 23:16 05:34 05:34 WBC MCV MCH MCHC RDW 21.3 H Lymph % (Auto) 9.6 L [place] % (Auto) Eos % (Auto) Lymph # (Auto) 0.6 L [place] # (Auto) Eos # (Auto) Baso # (Auto) Seg Neutrophils % 86.2 H Seg Neuts % (Manual) Lymphocytes % (Manual) Seg Neutrophils # Seg Neutrophils # Man Lymphocytes # (Manual) D-Dimer ABG pH POC ABG pCO2 POC ABG pO2 ABG pO2 ABG HCO3 ABG O2 Saturation ABG Base Excess ABG Oxyhemoglobin ABG Sodium ABG Chloride ABG Glucose Oxyhemoglobin Carboxyhemoglobin Sodium 136 L Potassium Chloride Carbon Dioxide BUN Creatinine 0.2 L Glucose 186 H POC Glucose 247 H Hemoglobin A1c Magnesium Ferritin AST ALT 69 H Alkaline Phosphatase Lactate Dehydrogenase C-Reactive Protein Total Protein 6.1 L Albumin 3.2 L Arterial Blood Glucose Coronavirus (PCR) 06/02/21 06/02/21 06/02/21 11:25 18:23 21:32 WBC MCV MCH MCHC RDW Lymph % (Auto) [place] % (Auto) Eos % (Auto) Lymph # (Auto) [place] # (Auto) Eos # (Auto) Baso # (Auto) Seg Neutrophils % Seg Neuts % (Manual) Lymphocytes % (Manual) Seg Neutrophils # Seg Neutrophils # Man Lymphocytes # (Manual) D-Dimer ABG pH POC ABG pCO2 POC ABG pO2 ABG pO2 ABG HCO3 ABG O2 Saturation ABG Base Excess ABG Oxyhemoglobin ABG Sodium ABG Chloride ABG Glucose Oxyhemoglobin Carboxyhemoglobin Sodium Potassium Chloride Carbon Dioxide BUN Creatinine Glucose POC Glucose 157 H 299 H 246 H Hemoglobin A1c Magnesium Ferritin AST ALT Alkaline Phosphatase Lactate Dehydrogenase C-Reactive Protein Total Protein Albumin Arterial Blood Glucose Coronavirus (PCR) 06/03/21 06/03/21 06/03/21 08:12 12:21 17:31 WBC MCV MCH MCHC RDW Lymph % (Auto) [place] % (Auto) Eos % (Auto) Lymph # (Auto) [place] # (Auto) Eos # (Auto) Baso # (Auto) Seg Neutrophils % Seg Neuts % (Manual) Lymphocytes % (Manual) Seg Neutrophils # Seg Neutrophils # Man Lymphocytes # (Manual) D-Dimer ABG pH POC ABG pCO2 POC ABG pO2 ABG pO2 ABG HCO3 ABG O2 Saturation ABG Base Excess ABG Oxyhemoglobin ABG Sodium ABG Chloride ABG Glucose Oxyhemoglobin Carboxyhemoglobin Sodium Potassium Chloride Carbon Dioxide BUN Creatinine Glucose POC Glucose 153 H 302 H 252 H Hemoglobin A1c Magnesium Ferritin AST ALT Alkaline Phosphatase Lactate Dehydrogenase C-Reactive Protein Total Protein Albumin Arterial Blood Glucose Coronavirus (PCR) 06/03/21 06/04/21 06/04/21 22:08 11:12 16:01 WBC MCV MCH MCHC RDW Lymph % (Auto) [place] % (Auto) Eos % (Auto) Lymph # (Auto) [place] # (Auto) Eos # (Auto) Baso # (Auto) Seg Neutrophils % Seg Neuts % (Manual) Lymphocytes % (Manual) Seg Neutrophils # Seg Neutrophils # Man Lymphocytes # (Manual) D-Dimer ABG pH POC ABG pCO2 POC ABG pO2 ABG pO2 ABG HCO3 ABG O2 Saturation ABG Base Excess ABG Oxyhemoglobin ABG Sodium ABG Chloride ABG Glucose Oxyhemoglobin Carboxyhemoglobin Sodium Potassium Chloride Carbon Dioxide BUN Creatinine Glucose POC Glucose 224 H 259 H 238 H Hemoglobin A1c Magnesium Ferritin AST ALT Alkaline Phosphatase Lactate Dehydrogenase C-Reactive Protein Total Protein Albumin Arterial Blood Glucose Coronavirus (PCR) 06/04/21 06/05/21 06/05/21 21:26 05:26 05:26 WBC MCV MCH MCHC RDW Lymph % (Auto) [place] % (Auto) Eos % (Auto) Lymph # (Auto) [place] # (Auto) Eos # (Auto) Baso # (Auto) Seg Neutrophils % Seg Neuts % (Manual) Lymphocytes % (Manual) Seg Neutrophils # Seg Neutrophils # Man Lymphocytes # (Manual) D-Dimer 488.49 H ABG pH POC ABG pCO2 POC ABG pO2 ABG pO2 ABG HCO3 ABG O2 Saturation ABG Base Excess ABG Oxyhemoglobin ABG Sodium ABG Chloride ABG Glucose Oxyhemoglobin Carboxyhemoglobin Sodium Potassium Chloride Carbon Dioxide BUN Creatinine 0.2 L Glucose 198 H POC Glucose 257 H Hemoglobin A1c Magnesium Ferritin AST ALT Alkaline Phosphatase Lactate Dehydrogenase 475 H C-Reactive Protein Total Protein Albumin Arterial Blood Glucose Coronavirus (PCR) 06/05/21 06/05/21 06/05/21 07:20 08:30 11:00 WBC MCV MCH MCHC RDW Lymph % (Auto) [place] % (Auto) Eos % (Auto) Lymph # (Auto) [place] # (Auto) Eos # (Auto) Baso # (Auto) Seg Neutrophils % Seg Neuts % (Manual) Lymphocytes % (Manual) Seg Neutrophils # Seg Neutrophils # Man Lymphocytes # (Manual) D-Dimer ABG pH POC ABG pCO2 POC ABG pO2 ABG pO2 ABG HCO3 ABG O2 Saturation ABG Base Excess ABG Oxyhemoglobin ABG Sodium ABG Chloride ABG Glucose Oxyhemoglobin Carboxyhemoglobin Sodium Potassium Chloride Carbon Dioxide BUN Creatinine Glucose POC Glucose 146 H 246 H Hemoglobin A1c Magnesium Ferritin AST ALT Alkaline Phosphatase Lactate Dehydrogenase C-Reactive Protein Total Protein Albumin Arterial Blood Glucose Coronavirus (PCR) Positive A 06/05/21 06/05/21 06/06/21 16:50 22:30 07:57 WBC MCV MCH MCHC RDW Lymph % (Auto) [place] % (Auto) Eos % (Auto) Lymph # (Auto) [place] # (Auto) Eos # (Auto) Baso # (Auto) Seg Neutrophils % Seg Neuts % (Manual) Lymphocytes % (Manual) Seg Neutrophils # Seg Neutrophils # Man Lymphocytes # (Manual) D-Dimer ABG pH POC ABG pCO2 POC ABG pO2 ABG pO2 ABG HCO3 ABG O2 Saturation ABG Base Excess ABG Oxyhemoglobin ABG Sodium ABG Chloride ABG Glucose Oxyhemoglobin Carboxyhemoglobin Sodium Potassium Chloride Carbon Dioxide BUN Creatinine Glucose POC Glucose 240 H 174 H 120 H Hemoglobin A1c Magnesium Ferritin AST ALT Alkaline Phosphatase Lactate Dehydrogenase C-Reactive Protein Total Protein Albumin Arterial Blood Glucose Coronavirus (PCR) 06/06/21 06/06/21 06/06/21 11:14 16:50 21:11 WBC MCV MCH MCHC RDW Lymph % (Auto) [place] % (Auto) Eos % (Auto) Lymph # (Auto) [place] # (Auto) Eos # (Auto) Baso # (Auto) Seg Neutrophils % Seg Neuts % (Manual) Lymphocytes % (Manual) Seg Neutrophils # Seg Neutrophils # Man Lymphocytes # (Manual) D-Dimer ABG pH POC ABG pCO2 POC ABG pO2 ABG pO2 ABG HCO3 ABG O2 Saturation ABG Base Excess ABG Oxyhemoglobin ABG Sodium ABG Chloride ABG Glucose Oxyhemoglobin Carboxyhemoglobin Sodium Potassium Chloride Carbon Dioxide BUN Creatinine Glucose POC Glucose 267 H 218 H 124 H Hemoglobin A1c Magnesium Ferritin AST ALT Alkaline Phosphatase Lactate Dehydrogenase C-Reactive Protein Total Protein Albumin Arterial Blood Glucose Coronavirus (PCR) 06/07/21 06/07/21 06/08/21 11:58 15:59 07:59 WBC MCV MCH MCHC RDW Lymph % (Auto) [place] % (Auto) Eos % (Auto) Lymph # (Auto) [place] # (Auto) Eos # (Auto) Baso # (Auto) Seg Neutrophils % Seg Neuts % (Manual) Lymphocytes % (Manual) Seg Neutrophils # Seg Neutrophils # Man Lymphocytes # (Manual) D-Dimer ABG pH POC ABG pCO2 POC ABG pO2 ABG pO2 ABG HCO3 ABG O2 Saturation ABG Base Excess ABG Oxyhemoglobin ABG Sodium ABG Chloride ABG Glucose Oxyhemoglobin Carboxyhemoglobin Sodium Potassium Chloride Carbon Dioxide BUN Creatinine Glucose POC Glucose 219 H 208 H 192 H Hemoglobin A1c Magnesium Ferritin AST ALT Alkaline Phosphatase Lactate Dehydrogenase C-Reactive Protein Total Protein Albumin Arterial Blood Glucose Coronavirus (PCR) 06/08/21 06/08/21 06/09/21 11:26 23:28 07:33 WBC MCV MCH MCHC RDW Lymph % (Auto) [place] % (Auto) Eos % (Auto) Lymph # (Auto) [place] # (Auto) Eos # (Auto) Baso # (Auto) Seg Neutrophils % Seg Neuts % (Manual) Lymphocytes % (Manual) Seg Neutrophils # Seg Neutrophils # Man Lymphocytes # (Manual) D-Dimer ABG pH POC ABG pCO2 POC ABG pO2 ABG pO2 ABG HCO3 ABG O2 Saturation ABG Base Excess ABG Oxyhemoglobin ABG Sodium ABG Chloride ABG Glucose Oxyhemoglobin Carboxyhemoglobin Sodium Potassium Chloride Carbon Dioxide BUN Creatinine Glucose POC Glucose 307 H 138 H 145 H Hemoglobin A1c Magnesium Ferritin AST ALT Alkaline Phosphatase Lactate Dehydrogenase C-Reactive Protein Total Protein Albumin Arterial Blood Glucose Coronavirus (PCR) 06/09/21 06/09/21 06/09/21 11:01 15:47 21:43 WBC MCV MCH MCHC RDW Lymph % (Auto) [place] % (Auto) Eos % (Auto) Lymph # (Auto) [place] # (Auto) Eos # (Auto) Baso # (Auto) Seg Neutrophils % Seg Neuts % (Manual) Lymphocytes % (Manual) Seg Neutrophils # Seg Neutrophils # Man Lymphocytes # (Manual) D-Dimer ABG pH POC ABG pCO2 POC ABG pO2 ABG pO2 ABG HCO3 ABG O2 Saturation ABG Base Excess ABG Oxyhemoglobin ABG Sodium ABG Chloride ABG Glucose Oxyhemoglobin Carboxyhemoglobin Sodium Potassium Chloride Carbon Dioxide BUN Creatinine Glucose POC Glucose 266 H 305 H 223 H Hemoglobin A1c Magnesium Ferritin AST ALT Alkaline Phosphatase Lactate Dehydrogenase C-Reactive Protein Total Protein Albumin Arterial Blood Glucose Coronavirus (PCR) 06/10/21 06/10/21 06/10/21 08:27 12:10 17:45 WBC MCV MCH MCHC RDW Lymph % (Auto) [place] % (Auto) Eos % (Auto) Lymph # (Auto) [place] # (Auto) Eos # (Auto) Baso # (Auto) Seg Neutrophils % Seg Neuts % (Manual) Lymphocytes % (Manual) Seg Neutrophils # Seg Neutrophils # Man Lymphocytes # (Manual) D-Dimer ABG pH POC ABG pCO2 POC ABG pO2 ABG pO2 ABG HCO3 ABG O2 Saturation ABG Base Excess ABG Oxyhemoglobin ABG Sodium ABG Chloride ABG Glucose Oxyhemoglobin Carboxyhemoglobin Sodium Potassium Chloride Carbon Dioxide BUN Creatinine Glucose POC Glucose 174 H 306 H 210 H Hemoglobin A1c Magnesium Ferritin AST ALT Alkaline Phosphatase Lactate Dehydrogenase C-Reactive Protein Total Protein Albumin Arterial Blood Glucose Coronavirus (PCR) 06/10/21 06/11/21 06/11/21 21:45 09:38 09:38 WBC MCV MCH MCHC RDW 20.9 H Lymph % (Auto) [place] % (Auto) Eos % (Auto) Lymph # (Auto) [place] # (Auto) Eos # (Auto) Baso # (Auto) Seg Neutrophils % Seg Neuts % (Manual) Lymphocytes % (Manual) Seg Neutrophils # Seg Neutrophils # Man Lymphocytes # (Manual) D-Dimer ABG pH POC ABG pCO2 POC ABG pO2 ABG pO2 ABG HCO3 ABG O2 Saturation ABG Base Excess ABG Oxyhemoglobin ABG Sodium ABG Chloride ABG Glucose Oxyhemoglobin Carboxyhemoglobin Sodium 135 L Potassium Chloride 90.8 L Carbon Dioxide 36 H BUN 29 H Creatinine 0.2 L Glucose 258 H POC Glucose 262 H Hemoglobin A1c Magnesium Ferritin AST ALT Alkaline Phosphatase Lactate Dehydrogenase C-Reactive Protein Total Protein Albumin Arterial Blood Glucose Coronavirus (PCR) 06/11/21 06/11/21 06/11/21 11:20 15:49 22:57 WBC MCV MCH MCHC RDW Lymph % (Auto) [place] % (Auto) Eos % (Auto) Lymph # (Auto) [place] # (Auto) Eos # (Auto) Baso # (Auto) Seg Neutrophils % Seg Neuts % (Manual) Lymphocytes % (Manual) Seg Neutrophils # Seg Neutrophils # Man Lymphocytes # (Manual) D-Dimer ABG pH POC ABG pCO2 POC ABG pO2 ABG pO2 ABG HCO3 ABG O2 Saturation ABG Base Excess ABG Oxyhemoglobin ABG Sodium ABG Chloride ABG Glucose Oxyhemoglobin Carboxyhemoglobin Sodium Potassium Chloride Carbon Dioxide BUN Creatinine Glucose POC Glucose 269 H 206 H 211 H Hemoglobin A1c Magnesium Ferritin AST ALT Alkaline Phosphatase Lactate Dehydrogenase C-Reactive Protein Total Protein Albumin Arterial Blood Glucose Coronavirus (PCR) 06/12/21 06/12/21 06/12/21 08:07 11:24 18:08 WBC MCV MCH MCHC RDW Lymph % (Auto) [place] % (Auto) Eos % (Auto) Lymph # (Auto) [place] # (Auto) Eos # (Auto) Baso # (Auto) Seg Neutrophils % Seg Neuts % (Manual) Lymphocytes % (Manual) Seg Neutrophils # Seg Neutrophils # Man Lymphocytes # (Manual) D-Dimer ABG pH POC ABG pCO2 POC ABG pO2 ABG pO2 ABG HCO3 ABG O2 Saturation ABG Base Excess ABG Oxyhemoglobin ABG Sodium ABG Chloride ABG Glucose Oxyhemoglobin Carboxyhemoglobin Sodium Potassium Chloride Carbon Dioxide BUN Creatinine Glucose POC Glucose 149 H 270 H 166 H Hemoglobin A1c Magnesium Ferritin AST ALT Alkaline Phosphatase Lactate Dehydrogenase C-Reactive Protein Total Protein Albumin Arterial Blood Glucose Coronavirus (PCR) 06/12/21 06/13/21 06/13/21 20:22 07:50 11:18 WBC MCV MCH MCHC RDW Lymph % (Auto) [place] % (Auto) Eos % (Auto) Lymph # (Auto) [place] # (Auto) Eos # (Auto) Baso # (Auto) Seg Neutrophils % Seg Neuts % (Manual) Lymphocytes % (Manual) Seg Neutrophils # Seg Neutrophils # Man Lymphocytes # (Manual) D-Dimer ABG pH POC ABG pCO2 POC ABG pO2 ABG pO2 ABG HCO3 ABG O2 Saturation ABG Base Excess ABG Oxyhemoglobin ABG Sodium ABG Chloride ABG Glucose Oxyhemoglobin Carboxyhemoglobin Sodium Potassium Chloride Carbon Dioxide BUN Creatinine Glucose POC Glucose 155 H 163 H 293 H Hemoglobin A1c Magnesium Ferritin AST ALT Alkaline Phosphatase Lactate Dehydrogenase C-Reactive Protein Total Protein Albumin Arterial Blood Glucose Coronavirus (PCR) 06/13/21 06/13/21 06/14/21 16:41 21:00 07:41 WBC MCV MCH MCHC RDW Lymph % (Auto) [place] % (Auto) Eos % (Auto) Lymph # (Auto) [place] # (Auto) Eos # (Auto) Baso # (Auto) Seg Neutrophils % Seg Neuts % (Manual) Lymphocytes % (Manual) Seg Neutrophils # Seg Neutrophils # Man Lymphocytes # (Manual) D-Dimer ABG pH POC ABG pCO2 POC ABG pO2 ABG pO2 ABG HCO3 ABG O2 Saturation ABG Base Excess ABG Oxyhemoglobin ABG Sodium ABG Chloride ABG Glucose Oxyhemoglobin Carboxyhemoglobin Sodium Potassium Chloride Carbon Dioxide BUN Creatinine Glucose POC Glucose 232 H 183 H 52 L Hemoglobin A1c Magnesium Ferritin AST ALT Alkaline Phosphatase Lactate Dehydrogenase C-Reactive Protein Total Protein Albumin Arterial Blood Glucose Coronavirus (PCR) 06/14/21 06/14/21 06/14/21 11:44 17:44 21:44 WBC MCV MCH MCHC RDW Lymph % (Auto) [place] % (Auto) Eos % (Auto) Lymph # (Auto) [place] # (Auto) Eos # (Auto) Baso # (Auto) Seg Neutrophils % Seg Neuts % (Manual) Lymphocytes % (Manual) Seg Neutrophils # Seg Neutrophils # Man Lymphocytes # (Manual) D-Dimer ABG pH POC ABG pCO2 POC ABG pO2 ABG pO2 ABG HCO3 ABG O2 Saturation ABG Base Excess ABG Oxyhemoglobin ABG Sodium ABG Chloride ABG Glucose Oxyhemoglobin Carboxyhemoglobin Sodium Potassium Chloride Carbon Dioxide BUN Creatinine Glucose POC Glucose 205 H 293 H 288 H Hemoglobin A1c Magnesium Ferritin AST ALT Alkaline Phosphatase Lactate Dehydrogenase C-Reactive Protein Total Protein Albumin Arterial Blood Glucose Coronavirus (PCR) 06/15/21 06/15/21 06/15/21 08:00 08:00 11:40 WBC MCV MCH 33 H MCHC 35 H RDW 20.3 H Lymph % (Auto) [place] % (Auto) Eos % (Auto) Lymph # (Auto) [place] # (Auto) Eos # (Auto) Baso # (Auto) Seg Neutrophils % Seg Neuts % (Manual) Lymphocytes % (Manual) Seg Neutrophils # Seg Neutrophils # Man Lymphocytes # (Manual) D-Dimer ABG pH POC ABG pCO2 POC ABG pO2 ABG pO2 ABG HCO3 ABG O2 Saturation ABG Base Excess ABG Oxyhemoglobin ABG Sodium ABG Chloride ABG Glucose Oxyhemoglobin Carboxyhemoglobin Sodium Potassium 3.2 L Chloride 95.3 L Carbon Dioxide 32 H BUN 23 H Creatinine 0.2 L Glucose 103 H POC Glucose 204 H Hemoglobin A1c Magnesium Ferritin AST ALT Alkaline Phosphatase Lactate Dehydrogenase C-Reactive Protein Total Protein Albumin Arterial Blood Glucose Coronavirus (PCR) 06/15/21 06/15/21 06/16/21 16:17 22:00 11:43 WBC MCV MCH MCHC RDW Lymph % (Auto) [place] % (Auto) Eos % (Auto) Lymph # (Auto) [place] # (Auto) Eos # (Auto) Baso # (Auto) Seg Neutrophils % Seg Neuts % (Manual) Lymphocytes % (Manual) Seg Neutrophils # Seg Neutrophils # Man Lymphocytes # (Manual) D-Dimer ABG pH POC ABG pCO2 POC ABG pO2 ABG pO2 ABG HCO3 ABG O2 Saturation ABG Base Excess ABG Oxyhemoglobin ABG Sodium ABG Chloride ABG Glucose Oxyhemoglobin Carboxyhemoglobin Sodium Potassium Chloride Carbon Dioxide BUN Creatinine Glucose POC Glucose 295 H 233 H 201 H Hemoglobin A1c Magnesium Ferritin AST ALT Alkaline Phosphatase Lactate Dehydrogenase C-Reactive Protein Total Protein Albumin Arterial Blood Glucose Coronavirus (PCR) 06/16/21 06/16/21 06/17/21 17:21 21:27 07:12 WBC MCV MCH MCHC RDW Lymph % (Auto) [place] % (Auto) Eos % (Auto) Lymph # (Auto) [place] # (Auto) Eos # (Auto) Baso # (Auto) Seg Neutrophils % Seg Neuts % (Manual) Lymphocytes % (Manual) Seg Neutrophils # Seg Neutrophils # Man Lymphocytes # (Manual) D-Dimer ABG pH POC ABG pCO2 POC ABG pO2 ABG pO2 ABG HCO3 ABG O2 Saturation ABG Base Excess ABG Oxyhemoglobin ABG Sodium ABG Chloride ABG Glucose Oxyhemoglobin Carboxyhemoglobin Sodium Potassium Chloride Carbon Dioxide BUN Creatinine Glucose POC Glucose 299 H 290 H 67 L Hemoglobin A1c Magnesium Ferritin AST ALT Alkaline Phosphatase Lactate Dehydrogenase C-Reactive Protein Total Protein Albumin Arterial Blood Glucose Coronavirus (PCR) 06/17/21 06/17/21 06/17/21 11:53 17:02 22:25 WBC MCV MCH MCHC RDW Lymph % (Auto) [place] % (Auto) Eos % (Auto) Lymph # (Auto) [place] # (Auto) Eos # (Auto) Baso # (Auto) Seg Neutrophils % Seg Neuts % (Manual) Lymphocytes % (Manual) Seg Neutrophils # Seg Neutrophils # Man Lymphocytes # (Manual) D-Dimer ABG pH POC ABG pCO2 POC ABG pO2 ABG pO2 ABG HCO3 ABG O2 Saturation ABG Base Excess ABG Oxyhemoglobin ABG Sodium ABG Chloride ABG Glucose Oxyhemoglobin Carboxyhemoglobin Sodium Potassium Chloride Carbon Dioxide BUN Creatinine Glucose POC Glucose 199 H 362 H 235 H Hemoglobin A1c Magnesium Ferritin AST ALT Alkaline Phosphatase Lactate Dehydrogenase C-Reactive Protein Total Protein Albumin Arterial Blood Glucose Coronavirus (PCR) 06/18/21 06/18/21 06/18/21 08:00 11:48 16:40 WBC MCV MCH MCHC RDW Lymph % (Auto) [place] % (Auto) Eos % (Auto) Lymph # (Auto) [place] # (Auto) Eos # (Auto) Baso # (Auto) Seg Neutrophils % Seg Neuts % (Manual) Lymphocytes % (Manual) Seg Neutrophils # Seg Neutrophils # Man Lymphocytes # (Manual) D-Dimer ABG pH POC ABG pCO2 POC ABG pO2 ABG pO2 ABG HCO3 ABG O2 Saturation ABG Base Excess ABG Oxyhemoglobin ABG Sodium ABG Chloride ABG Glucose Oxyhemoglobin Carboxyhemoglobin Sodium Potassium Chloride Carbon Dioxide BUN Creatinine Glucose POC Glucose 62 L 211 H 305 H Hemoglobin A1c Magnesium Ferritin AST ALT Alkaline Phosphatase Lactate Dehydrogenase C-Reactive Protein Total Protein Albumin Arterial Blood Glucose Coronavirus (PCR) 06/18/21 06/19/21 06/19/21 21:26 07:27 11:32 WBC MCV MCH MCHC RDW Lymph % (Auto) [place] % (Auto) Eos % (Auto) Lymph # (Auto) [place] # (Auto) Eos # (Auto) Baso # (Auto) Seg Neutrophils % Seg Neuts % (Manual) Lymphocytes % (Manual) Seg Neutrophils # Seg Neutrophils # Man Lymphocytes # (Manual) D-Dimer ABG pH POC ABG pCO2 POC ABG pO2 ABG pO2 ABG HCO3 ABG O2 Saturation ABG Base Excess ABG Oxyhemoglobin ABG Sodium ABG Chloride ABG Glucose Oxyhemoglobin Carboxyhemoglobin Sodium Potassium Chloride Carbon Dioxide BUN Creatinine Glucose POC Glucose 149 H 60 L 208 H Hemoglobin A1c Magnesium Ferritin AST ALT Alkaline Phosphatase Lactate Dehydrogenase C-Reactive Protein Total Protein Albumin Arterial Blood Glucose Coronavirus (PCR) 06/19/21 06/19/21 06/20/21 16:06 22:28 07:48 WBC MCV MCH MCHC RDW Lymph % (Auto) [place] % (Auto) Eos % (Auto) Lymph # (Auto) [place] # (Auto) Eos # (Auto) Baso # (Auto) Seg Neutrophils % Seg Neuts % (Manual) Lymphocytes % (Manual) Seg Neutrophils # Seg Neutrophils # Man Lymphocytes # (Manual) D-Dimer ABG pH POC ABG pCO2 POC ABG pO2 ABG pO2 ABG HCO3 ABG O2 Saturation ABG Base Excess ABG Oxyhemoglobin ABG Sodium ABG Chloride ABG Glucose Oxyhemoglobin Carboxyhemoglobin Sodium Potassium Chloride Carbon Dioxide BUN Creatinine Glucose POC Glucose 266 H 166 H 58 L Hemoglobin A1c Magnesium Ferritin AST ALT Alkaline Phosphatase Lactate Dehydrogenase C-Reactive Protein Total Protein Albumin Arterial Blood Glucose Coronavirus (PCR) 06/20/21 06/20/21 06/20/21 09:09 11:04 16:01 WBC MCV MCH MCHC RDW Lymph % (Auto) [place] % (Auto) Eos % (Auto) Lymph # (Auto) [place] # (Auto) Eos # (Auto) Baso # (Auto) Seg Neutrophils % Seg Neuts % (Manual) Lymphocytes % (Manual) Seg Neutrophils # Seg Neutrophils # Man Lymphocytes # (Manual) D-Dimer ABG pH POC ABG pCO2 POC ABG pO2 ABG pO2 ABG HCO3 ABG O2 Saturation ABG Base Excess ABG Oxyhemoglobin ABG Sodium ABG Chloride ABG Glucose Oxyhemoglobin Carboxyhemoglobin Sodium Potassium Chloride Carbon Dioxide BUN Creatinine Glucose POC Glucose 146 H 225 H 330 H Hemoglobin A1c Magnesium Ferritin AST ALT Alkaline Phosphatase Lactate Dehydrogenase C-Reactive Protein Total Protein Albumin Arterial Blood Glucose Coronavirus (PCR) 06/20/21 06/21/21 06/21/21 20:46 06:45 06:45 WBC MCV MCH MCHC RDW 20.0 H Lymph % (Auto) [place] % (Auto) Eos % (Auto) Lymph # (Auto) [place] # (Auto) Eos # (Auto) Baso # (Auto) Seg Neutrophils % Seg Neuts % (Manual) Lymphocytes % (Manual) Seg Neutrophils # Seg Neutrophils # Man Lymphocytes # (Manual) D-Dimer ABG pH POC ABG pCO2 POC ABG pO2 ABG pO2 ABG HCO3 ABG O2 Saturation ABG Base Excess ABG Oxyhemoglobin ABG Sodium ABG Chloride ABG Glucose Oxyhemoglobin Carboxyhemoglobin Sodium Potassium 2.9 L* Chloride 95.0 L Carbon Dioxide 31 H BUN 23 H Creatinine 0.2 L Glucose 45 L POC Glucose 215 H Hemoglobin A1c Magnesium Ferritin AST ALT Alkaline Phosphatase Lactate Dehydrogenase C-Reactive Protein Total Protein Albumin Arterial Blood Glucose Coronavirus (PCR) 06/21/21 06/21/21 06/21/21 07:38 09:06 12:40 WBC MCV MCH MCHC RDW Lymph % (Auto) [place] % (Auto) Eos % (Auto) Lymph # (Auto) [place] # (Auto) Eos # (Auto) Baso # (Auto) Seg Neutrophils % Seg Neuts % (Manual) Lymphocytes % (Manual) Seg Neutrophils # Seg Neutrophils # Man Lymphocytes # (Manual) D-Dimer ABG pH POC ABG pCO2 POC ABG pO2 ABG pO2 ABG HCO3 ABG O2 Saturation ABG Base Excess ABG Oxyhemoglobin ABG Sodium ABG Chloride ABG Glucose Oxyhemoglobin Carboxyhemoglobin Sodium Potassium Chloride Carbon Dioxide BUN Creatinine Glucose POC Glucose 50 L 196 H 205 H Hemoglobin A1c Magnesium Ferritin AST ALT Alkaline Phosphatase Lactate Dehydrogenase C-Reactive Protein Total Protein Albumin Arterial Blood Glucose Coronavirus (PCR) 06/21/21 06/22/21 06/22/21 21:36 06:25 07:15 WBC MCV MCH MCHC RDW Lymph % (Auto) [place] % (Auto) Eos % (Auto) Lymph # (Auto) [place] # (Auto) Eos # (Auto) Baso # (Auto) Seg Neutrophils % Seg Neuts % (Manual) Lymphocytes % (Manual) Seg Neutrophils # Seg Neutrophils # Man Lymphocytes # (Manual) D-Dimer ABG pH POC ABG pCO2 POC ABG pO2 ABG pO2 ABG HCO3 ABG O2 Saturation ABG Base Excess ABG Oxyhemoglobin ABG Sodium ABG Chloride ABG Glucose Oxyhemoglobin Carboxyhemoglobin Sodium Potassium Chloride Carbon Dioxide BUN 20 H Creatinine 0.2 L Glucose POC Glucose 245 H 66 L Hemoglobin A1c Magnesium Ferritin AST ALT Alkaline Phosphatase Lactate Dehydrogenase C-Reactive Protein Total Protein Albumin Arterial Blood Glucose Coronavirus (PCR) 06/22/21 06/22/21 06/22/21 11:03 16:07 22:03 WBC MCV MCH MCHC RDW Lymph % (Auto) [place] % (Auto) Eos % (Auto) Lymph # (Auto) [place] # (Auto) Eos # (Auto) Baso # (Auto) Seg Neutrophils % Seg Neuts % (Manual) Lymphocytes % (Manual) Seg Neutrophils # Seg Neutrophils # Man Lymphocytes # (Manual) D-Dimer ABG pH POC ABG pCO2 POC ABG pO2 ABG pO2 ABG HCO3 ABG O2 Saturation ABG Base Excess ABG Oxyhemoglobin ABG Sodium ABG Chloride ABG Glucose Oxyhemoglobin Carboxyhemoglobin Sodium Potassium Chloride Carbon Dioxide BUN Creatinine Glucose POC Glucose 184 H 326 H 138 H Hemoglobin A1c Magnesium Ferritin AST ALT Alkaline Phosphatase Lactate Dehydrogenase C-Reactive Protein Total Protein Albumin Arterial Blood Glucose Coronavirus (PCR) 06/23/21 06/23/21 06/23/21 07:19 10:34 16:35 WBC MCV MCH MCHC RDW Lymph % (Auto) [place] % (Auto) Eos % (Auto) Lymph # (Auto) [place] # (Auto) Eos # (Auto) Baso # (Auto) Seg Neutrophils % Seg Neuts % (Manual) Lymphocytes % (Manual) Seg Neutrophils # Seg Neutrophils # Man Lymphocytes # (Manual) D-Dimer ABG pH POC ABG pCO2 POC ABG pO2 ABG pO2 ABG HCO3 ABG O2 Saturation ABG Base Excess ABG Oxyhemoglobin ABG Sodium ABG Chloride ABG Glucose Oxyhemoglobin Carboxyhemoglobin Sodium Potassium Chloride Carbon Dioxide BUN Creatinine Glucose POC Glucose 69 L 218 H 326 H Hemoglobin A1c Magnesium Ferritin AST ALT Alkaline Phosphatase Lactate Dehydrogenase C-Reactive Protein Total Protein Albumin Arterial Blood Glucose Coronavirus (PCR) 06/23/21 06/24/21 06/24/21 22:44 11:41 16:54 WBC MCV MCH MCHC RDW Lymph % (Auto) [place] % (Auto) Eos % (Auto) Lymph # (Auto) [place] # (Auto) Eos # (Auto) Baso # (Auto) Seg Neutrophils % Seg Neuts % (Manual) Lymphocytes % (Manual) Seg Neutrophils # Seg Neutrophils # Man Lymphocytes # (Manual) D-Dimer ABG pH POC ABG pCO2 POC ABG pO2 ABG pO2 ABG HCO3 ABG O2 Saturation ABG Base Excess ABG Oxyhemoglobin ABG Sodium ABG Chloride ABG Glucose Oxyhemoglobin Carboxyhemoglobin Sodium Potassium Chloride Carbon Dioxide BUN Creatinine Glucose POC Glucose 252 H 217 H 357 H Hemoglobin A1c Magnesium Ferritin AST ALT Alkaline Phosphatase Lactate Dehydrogenase C-Reactive Protein Total Protein Albumin Arterial Blood Glucose Coronavirus (PCR) 06/24/21 06/25/21 06/25/21 20:40 11:51 16:47 WBC MCV MCH MCHC RDW Lymph % (Auto) [place] % (Auto) Eos % (Auto) Lymph # (Auto) [place] # (Auto) Eos # (Auto) Baso # (Auto) Seg Neutrophils % Seg Neuts % (Manual) Lymphocytes % (Manual) Seg Neutrophils # Seg Neutrophils # Man Lymphocytes # (Manual) D-Dimer ABG pH POC ABG pCO2 POC ABG pO2 ABG pO2 ABG HCO3 ABG O2 Saturation ABG Base Excess ABG Oxyhemoglobin ABG Sodium ABG Chloride ABG Glucose Oxyhemoglobin Carboxyhemoglobin Sodium Potassium Chloride Carbon Dioxide BUN Creatinine Glucose POC Glucose 239 H 182 H 229 H Hemoglobin A1c Magnesium Ferritin AST ALT Alkaline Phosphatase Lactate Dehydrogenase C-Reactive Protein Total Protein Albumin Arterial Blood Glucose Coronavirus (PCR) 06/25/21 06/26/21 06/26/21 22:27 07:20 12:19 WBC MCV MCH MCHC RDW Lymph % (Auto) [place] % (Auto) Eos % (Auto) Lymph # (Auto) [place] # (Auto) Eos # (Auto) Baso # (Auto) Seg Neutrophils % Seg Neuts % (Manual) Lymphocytes % (Manual) Seg Neutrophils # Seg Neutrophils # Man Lymphocytes # (Manual) D-Dimer ABG pH POC ABG pCO2 POC ABG pO2 ABG pO2 ABG HCO3 ABG O2 Saturation ABG Base Excess ABG Oxyhemoglobin ABG Sodium ABG Chloride ABG Glucose Oxyhemoglobin Carboxyhemoglobin Sodium Potassium 3.2 L D Chloride Carbon Dioxide BUN 20 H Creatinine 0.3 L Glucose POC Glucose 209 H 273 H Hemoglobin A1c Magnesium Ferritin AST ALT 77 H Alkaline Phosphatase Lactate Dehydrogenase C-Reactive Protein Total Protein Albumin 3.3 L Arterial Blood Glucose Coronavirus (PCR) 06/26/21 06/26/21 06/27/21 16:52 20:55 07:14 WBC MCV MCH MCHC RDW Lymph % (Auto) [place] % (Auto) Eos % (Auto) Lymph # (Auto) [place] # (Auto) Eos # (Auto) Baso # (Auto) Seg Neutrophils % Seg Neuts % (Manual) Lymphocytes % (Manual) Seg Neutrophils # Seg Neutrophils # Man Lymphocytes # (Manual) D-Dimer ABG pH POC ABG pCO2 POC ABG pO2 ABG pO2 ABG HCO3 ABG O2 Saturation ABG Base Excess ABG Oxyhemoglobin ABG Sodium ABG Chloride ABG Glucose Oxyhemoglobin Carboxyhemoglobin Sodium Potassium Chloride Carbon Dioxide 31 H BUN 19 H Creatinine 0.2 L Glucose 112 H POC Glucose 326 H 220 H Hemoglobin A1c Magnesium Ferritin AST ALT Alkaline Phosphatase Lactate Dehydrogenase C-Reactive Protein Total Protein Albumin Arterial Blood Glucose Coronavirus (PCR) 06/27/21 06/27/21 06/27/21 07:29 10:54 15:49 WBC MCV MCH MCHC RDW Lymph % (Auto) [place] % (Auto) Eos % (Auto) Lymph # (Auto) [place] # (Auto) Eos # (Auto) Baso # (Auto) Seg Neutrophils % Seg Neuts % (Manual) Lymphocytes % (Manual) Seg Neutrophils # Seg Neutrophils # Man Lymphocytes # (Manual) D-Dimer ABG pH POC ABG pCO2 POC ABG pO2 ABG pO2 ABG HCO3 ABG O2 Saturation ABG Base Excess ABG Oxyhemoglobin ABG Sodium ABG Chloride ABG Glucose Oxyhemoglobin Carboxyhemoglobin Sodium Potassium Chloride Carbon Dioxide BUN Creatinine Glucose POC Glucose 115 H 228 H 240 H Hemoglobin A1c Magnesium Ferritin AST ALT Alkaline Phosphatase Lactate Dehydrogenase C-Reactive Protein Total Protein Albumin Arterial Blood Glucose Coronavirus (PCR) 06/28/21 06/28/21 06/28/21 05:43 05:43 07:13 WBC MCV MCH 33 H MCHC RDW 19.8 H Lymph % (Auto) [place] % (Auto) Eos % (Auto) Lymph # (Auto) [place] # (Auto) Eos # (Auto) Baso # (Auto) Seg Neutrophils % Seg Neuts % (Manual) Lymphocytes % (Manual) Seg Neutrophils # Seg Neutrophils # Man Lymphocytes # (Manual) D-Dimer ABG pH POC ABG pCO2 POC ABG pO2 ABG pO2 ABG HCO3 ABG O2 Saturation ABG Base Excess ABG Oxyhemoglobin ABG Sodium ABG Chloride ABG Glucose Oxyhemoglobin Carboxyhemoglobin Sodium Potassium 3.3 L Chloride Carbon Dioxide BUN 22 H Creatinine 0.2 L Glucose POC Glucose 69 L Hemoglobin A1c Magnesium Ferritin AST ALT 63 H Alkaline Phosphatase Lactate Dehydrogenase C-Reactive Protein Total Protein Albumin 3.3 L Arterial Blood Glucose Coronavirus (PCR) 06/28/21 06/28/21 06/28/21 12:18 15:37 21:01 WBC MCV MCH MCHC RDW Lymph % (Auto) [place] % (Auto) Eos % (Auto) Lymph # (Auto) [place] # (Auto) Eos # (Auto) Baso # (Auto) Seg Neutrophils % Seg Neuts % (Manual) Lymphocytes % (Manual) Seg Neutrophils # Seg Neutrophils # Man Lymphocytes # (Manual) D-Dimer ABG pH POC ABG pCO2 POC ABG pO2 ABG pO2 ABG HCO3 ABG O2 Saturation ABG Base Excess ABG Oxyhemoglobin ABG Sodium ABG Chloride ABG Glucose Oxyhemoglobin Carboxyhemoglobin Sodium Potassium Chloride Carbon Dioxide BUN Creatinine Glucose POC Glucose 154 H 201 H 191 H Hemoglobin A1c Magnesium Ferritin AST ALT Alkaline Phosphatase Lactate Dehydrogenase C-Reactive Protein Total Protein Albumin Arterial Blood Glucose Coronavirus (PCR) 06/29/21 06/29/21 06/29/21 11:55 15:47 21:06 WBC MCV MCH MCHC RDW Lymph % (Auto) [place] % (Auto) Eos % (Auto) Lymph # (Auto) [place] # (Auto) Eos # (Auto) Baso # (Auto) Seg Neutrophils % Seg Neuts % (Manual) Lymphocytes % (Manual) Seg Neutrophils # Seg Neutrophils # Man Lymphocytes # (Manual) D-Dimer ABG pH POC ABG pCO2 POC ABG pO2 ABG pO2 ABG HCO3 ABG O2 Saturation ABG Base Excess ABG Oxyhemoglobin ABG Sodium ABG Chloride ABG Glucose Oxyhemoglobin Carboxyhemoglobin Sodium Potassium Chloride Carbon Dioxide BUN Creatinine Glucose POC Glucose 238 H 249 H 155 H Hemoglobin A1c Magnesium Ferritin AST ALT Alkaline Phosphatase Lactate Dehydrogenase C-Reactive Protein Total Protein Albumin Arterial Blood Glucose Coronavirus (PCR) 06/30/21 06/30/21 06/30/21 04:00 07:50 11:50 WBC MCV MCH MCHC RDW Lymph % (Auto) [place] % (Auto) Eos % (Auto) Lymph # (Auto) [place] # (Auto) Eos # (Auto) Baso # (Auto) Seg Neutrophils % Seg Neuts % (Manual) Lymphocytes % (Manual) Seg Neutrophils # Seg Neutrophils # Man Lymphocytes # (Manual) D-Dimer ABG pH POC ABG pCO2 POC ABG pO2 ABG pO2 ABG HCO3 ABG O2 Saturation ABG Base Excess ABG Oxyhemoglobin ABG Sodium ABG Chloride ABG Glucose Oxyhemoglobin Carboxyhemoglobin Sodium Potassium 3.5 L Chloride Carbon Dioxide BUN 18 H Creatinine 0.3 L Glucose 111 H POC Glucose 117 H 250 H Hemoglobin A1c Magnesium Ferritin AST ALT Alkaline Phosphatase Lactate Dehydrogenase C-Reactive Protein Total Protein Albumin Arterial Blood Glucose Coronavirus (PCR) 06/30/21 06/30/21 07/01/21 16:05 21:02 07:26 WBC MCV MCH MCHC RDW Lymph % (Auto) [place] % (Auto) Eos % (Auto) Lymph # (Auto) [place] # (Auto) Eos # (Auto) Baso # (Auto) Seg Neutrophils % Seg Neuts % (Manual) Lymphocytes % (Manual) Seg Neutrophils # Seg Neutrophils # Man Lymphocytes # (Manual) D-Dimer ABG pH POC ABG pCO2 POC ABG pO2 ABG pO2 ABG HCO3 ABG O2 Saturation ABG Base Excess ABG Oxyhemoglobin ABG Sodium ABG Chloride ABG Glucose Oxyhemoglobin Carboxyhemoglobin Sodium Potassium Chloride Carbon Dioxide BUN Creatinine Glucose POC Glucose 250 H 217 H 111 H Hemoglobin A1c Magnesium Ferritin AST ALT Alkaline Phosphatase Lactate Dehydrogenase C-Reactive Protein Total Protein Albumin Arterial Blood Glucose Coronavirus (PCR) 07/01/21 07/01/21 07/01/21 11:06 15:48 21:31 WBC MCV MCH MCHC RDW Lymph % (Auto) [place] % (Auto) Eos % (Auto) Lymph # (Auto) [place] # (Auto) Eos # (Auto) Baso # (Auto) Seg Neutrophils % Seg Neuts % (Manual) Lymphocytes % (Manual) Seg Neutrophils # Seg Neutrophils # Man Lymphocytes # (Manual) D-Dimer ABG pH POC ABG pCO2 POC ABG pO2 ABG pO2 ABG HCO3 ABG O2 Saturation ABG Base Excess ABG Oxyhemoglobin ABG Sodium ABG Chloride ABG Glucose Oxyhemoglobin Carboxyhemoglobin Sodium Potassium Chloride Carbon Dioxide BUN Creatinine Glucose POC Glucose 229 H 239 H 199 H Hemoglobin A1c Magnesium Ferritin AST ALT Alkaline Phosphatase Lactate Dehydrogenase C-Reactive Protein Total Protein Albumin Arterial Blood Glucose Coronavirus (PCR) 07/02/21 07/02/21 07/02/21 11:50 16:44 21:49 WBC MCV MCH MCHC RDW Lymph % (Auto) [place] % (Auto) Eos % (Auto) Lymph # (Auto) [place] # (Auto) Eos # (Auto) Baso # (Auto) Seg Neutrophils % Seg Neuts % (Manual) Lymphocytes % (Manual) Seg Neutrophils # Seg Neutrophils # Man Lymphocytes # (Manual) D-Dimer ABG pH POC ABG pCO2 POC ABG pO2 ABG pO2 ABG HCO3 ABG O2 Saturation ABG Base Excess ABG Oxyhemoglobin ABG Sodium ABG Chloride ABG Glucose Oxyhemoglobin Carboxyhemoglobin Sodium Potassium Chloride Carbon Dioxide BUN Creatinine Glucose POC Glucose 230 H 203 H 197 H Hemoglobin A1c Magnesium Ferritin AST ALT Alkaline Phosphatase Lactate Dehydrogenase C-Reactive Protein Total Protein Albumin Arterial Blood Glucose Coronavirus (PCR) 07/03/21 07/03/21 07/03/21 05:46 05:46 11:59 WBC MCV MCH MCHC RDW 19.6 H Lymph % (Auto) [place] % (Auto) Eos % (Auto) Lymph # (Auto) [place] # (Auto) Eos # (Auto) Baso # (Auto) Seg Neutrophils % Seg Neuts % (Manual) Lymphocytes % (Manual) Seg Neutrophils # Seg Neutrophils # Man Lymphocytes # (Manual) D-Dimer ABG pH POC ABG pCO2 POC ABG pO2 ABG pO2 ABG HCO3 ABG O2 Saturation ABG Base Excess ABG Oxyhemoglobin ABG Sodium ABG Chloride ABG Glucose Oxyhemoglobin Carboxyhemoglobin Sodium Potassium 3.2 L Chloride Carbon Dioxide BUN Creatinine 0.3 L Glucose POC Glucose 145 H Hemoglobin A1c Magnesium Ferritin AST ALT Alkaline Phosphatase Lactate Dehydrogenase C-Reactive Protein Total Protein Albumin Arterial Blood Glucose Coronavirus (PCR) 07/03/21 07/03/21 07/04/21 16:40 22:00 06:35 WBC MCV MCH MCHC RDW Lymph % (Auto) [place] % (Auto) Eos % (Auto) Lymph # (Auto) [place] # (Auto) Eos # (Auto) Baso # (Auto) Seg Neutrophils % Seg Neuts % (Manual) Lymphocytes % (Manual) Seg Neutrophils # Seg Neutrophils # Man Lymphocytes # (Manual) D-Dimer ABG pH POC ABG pCO2 POC ABG pO2 ABG pO2 ABG HCO3 ABG O2 Saturation ABG Base Excess ABG Oxyhemoglobin ABG Sodium ABG Chloride ABG Glucose Oxyhemoglobin Carboxyhemoglobin Sodium Potassium Chloride Carbon Dioxide BUN Creatinine 0.3 L Glucose 118 H POC Glucose 176 H 127 H Hemoglobin A1c Magnesium Ferritin AST ALT Alkaline Phosphatase Lactate Dehydrogenase C-Reactive Protein Total Protein Albumin Arterial Blood Glucose Coronavirus (PCR) 07/04/21 07/04/21 07/05/21 12:30 16:38 08:37 WBC MCV MCH MCHC RDW Lymph % (Auto) [place] % (Auto) Eos % (Auto) Lymph # (Auto) [place] # (Auto) Eos # (Auto) Baso # (Auto) Seg Neutrophils % Seg Neuts % (Manual) Lymphocytes % (Manual) Seg Neutrophils # Seg Neutrophils # Man Lymphocytes # (Manual) D-Dimer ABG pH POC ABG pCO2 POC ABG pO2 ABG pO2 ABG HCO3 ABG O2 Saturation ABG Base Excess ABG Oxyhemoglobin ABG Sodium ABG Chloride ABG Glucose Oxyhemoglobin Carboxyhemoglobin Sodium Potassium Chloride Carbon Dioxide BUN Creatinine Glucose POC Glucose 162 H 205 H 115 H Hemoglobin A1c Magnesium Ferritin AST ALT Alkaline Phosphatase Lactate Dehydrogenase C-Reactive Protein Total Protein Albumin Arterial Blood Glucose Coronavirus (PCR) 07/05/21 07/05/21 07/05/21 10:57 16:42 21:14 WBC MCV MCH MCHC RDW Lymph % (Auto) [place] % (Auto) Eos % (Auto) Lymph # (Auto) [place] # (Auto) Eos # (Auto) Baso # (Auto) Seg Neutrophils % Seg Neuts % (Manual) Lymphocytes % (Manual) Seg Neutrophils # Seg Neutrophils # Man Lymphocytes # (Manual) D-Dimer ABG pH POC ABG pCO2 POC ABG pO2 ABG pO2 ABG HCO3 ABG O2 Saturation ABG Base Excess ABG Oxyhemoglobin ABG Sodium ABG Chloride ABG Glucose Oxyhemoglobin Carboxyhemoglobin Sodium Potassium Chloride Carbon Dioxide BUN Creatinine Glucose POC Glucose 151 H 184 H 130 H Hemoglobin A1c Magnesium Ferritin AST ALT Alkaline Phosphatase Lactate Dehydrogenase C-Reactive Protein Total Protein Albumin Arterial Blood Glucose Coronavirus (PCR) 07/06/21 07/06/21 07/06/21 07:31 11:49 16:46 WBC MCV MCH MCHC RDW Lymph % (Auto) [place] % (Auto) Eos % (Auto) Lymph # (Auto) [place] # (Auto) Eos # (Auto) Baso # (Auto) Seg Neutrophils % Seg Neuts % (Manual) Lymphocytes % (Manual) Seg Neutrophils # Seg Neutrophils # Man Lymphocytes # (Manual) D-Dimer ABG pH POC ABG pCO2 POC ABG pO2 ABG pO2 ABG HCO3 ABG O2 Saturation ABG Base Excess ABG Oxyhemoglobin ABG Sodium ABG Chloride ABG Glucose Oxyhemoglobin Carboxyhemoglobin Sodium Potassium Chloride Carbon Dioxide BUN Creatinine Glucose POC Glucose 106 H 173 H 205 H Hemoglobin A1c Magnesium Ferritin AST ALT Alkaline Phosphatase Lactate Dehydrogenase C-Reactive Protein Total Protein Albumin Arterial Blood Glucose Coronavirus (PCR) 07/06/21 07/07/21 07/07/21 21:38 06:00 06:00 WBC 16.1 H MCV MCH MCHC RDW 18.8 H Lymph % (Auto) [place] % (Auto) Eos % (Auto) Lymph # (Auto) [place] # (Auto) 1.1 H Eos # (Auto) Baso # (Auto) 0.2 H Seg Neutrophils % 74.9 H Seg Neuts % (Manual) Lymphocytes % (Manual) Seg Neutrophils # 12.1 H Seg Neutrophils # Man Lymphocytes # (Manual) D-Dimer ABG pH POC ABG pCO2 POC ABG pO2 ABG pO2 ABG HCO3 ABG O2 Saturation ABG Base Excess ABG Oxyhemoglobin ABG Sodium ABG Chloride ABG Glucose Oxyhemoglobin Carboxyhemoglobin Sodium Potassium 3.5 L D Chloride Carbon Dioxide BUN 6 L Creatinine < 0.2 L Glucose 106 H POC Glucose 120 H Hemoglobin A1c Magnesium Ferritin AST ALT Alkaline Phosphatase Lactate Dehydrogenase C-Reactive Protein Total Protein Albumin Arterial Blood Glucose Coronavirus (PCR) 07/07/21 07/07/21 07/07/21 07:10 11:53 15:53 WBC MCV MCH MCHC RDW Lymph % (Auto) [place] % (Auto) Eos % (Auto) Lymph # (Auto) [place] # (Auto) Eos # (Auto) Baso # (Auto) Seg Neutrophils % Seg Neuts % (Manual) Lymphocytes % (Manual) Seg Neutrophils # Seg Neutrophils # Man Lymphocytes # (Manual) D-Dimer ABG pH POC ABG pCO2 POC ABG pO2 ABG pO2 ABG HCO3 ABG O2 Saturation ABG Base Excess ABG Oxyhemoglobin ABG Sodium ABG Chloride ABG Glucose Oxyhemoglobin Carboxyhemoglobin Sodium Potassium Chloride Carbon Dioxide BUN Creatinine Glucose POC Glucose 132 H 169 H 242 H Hemoglobin A1c Magnesium Ferritin AST ALT Alkaline Phosphatase Lactate Dehydrogenase C-Reactive Protein Total Protein Albumin Arterial Blood Glucose Coronavirus (PCR) 07/07/21 07/08/21 07/08/21 21:41 08:09 12:20 WBC MCV MCH MCHC RDW Lymph % (Auto) [place] % (Auto) Eos % (Auto) Lymph # (Auto) [place] # (Auto) Eos # (Auto) Baso # (Auto) Seg Neutrophils % Seg Neuts % (Manual) Lymphocytes % (Manual) Seg Neutrophils # Seg Neutrophils # Man Lymphocytes # (Manual) D-Dimer ABG pH POC ABG pCO2 POC ABG pO2 ABG pO2 ABG HCO3 ABG O2 Saturation ABG Base Excess ABG Oxyhemoglobin ABG Sodium ABG Chloride ABG Glucose Oxyhemoglobin Carboxyhemoglobin Sodium Potassium Chloride Carbon Dioxide BUN Creatinine Glucose POC Glucose 128 H 132 H 179 H Hemoglobin A1c Magnesium Ferritin AST ALT Alkaline Phosphatase Lactate Dehydrogenase C-Reactive Protein Total Protein Albumin Arterial Blood Glucose Coronavirus (PCR) 07/08/21 07/08/21 07/08/21 16:37 21:45 22:44 WBC MCV MCH MCHC RDW Lymph % (Auto) [place] % (Auto) Eos % (Auto) Lymph # (Auto) [place] # (Auto) Eos # (Auto) Baso # (Auto) Seg Neutrophils % Seg Neuts % (Manual) Lymphocytes % (Manual) Seg Neutrophils # Seg Neutrophils # Man Lymphocytes # (Manual) D-Dimer ABG pH POC ABG pCO2 POC ABG pO2 ABG pO2 ABG HCO3 ABG O2 Saturation ABG Base Excess ABG Oxyhemoglobin ABG Sodium ABG Chloride ABG Glucose Oxyhemoglobin Carboxyhemoglobin Sodium Potassium Chloride Carbon Dioxide BUN Creatinine Glucose POC Glucose 192 H 51 L 137 H Hemoglobin A1c Magnesium Ferritin AST ALT Alkaline Phosphatase Lactate Dehydrogenase C-Reactive Protein Total Protein Albumin Arterial Blood Glucose Coronavirus (PCR) 07/09/21 07/09/21 07/09/21 04:45 04:45 04:45 WBC MCV MCH MCHC RDW 18.3 H Lymph % (Auto) [place] % (Auto) Eos % (Auto) Lymph # (Auto) [place] # (Auto) Eos # (Auto) Baso # (Auto) Seg Neutrophils % Seg Neuts % (Manual) 82.0 H Lymphocytes % (Manual) 13.0 L Seg Neutrophils # Seg Neutrophils # Man 7.8 H Lymphocytes # (Manual) D-Dimer 638.35 H ABG pH POC ABG pCO2 POC ABG pO2 ABG pO2 ABG HCO3 ABG O2 Saturation ABG Base Excess ABG Oxyhemoglobin ABG Sodium ABG Chloride ABG Glucose Oxyhemoglobin Carboxyhemoglobin Sodium Potassium Chloride 96.9 L Carbon Dioxide 35 H BUN Creatinine 0.2 L Glucose 135 H POC Glucose Hemoglobin A1c Magnesium Ferritin AST ALT Alkaline Phosphatase Lactate Dehydrogenase C-Reactive Protein 4.30 H Total Protein Albumin Arterial Blood Glucose Coronavirus (PCR) 07/09/21 07/09/21 07/09/21 05:19 07:36 11:16 WBC MCV MCH MCHC RDW Lymph % (Auto) [place] % (Auto) Eos % (Auto) Lymph # (Auto) [place] # (Auto) Eos # (Auto) Baso # (Auto) Seg Neutrophils % Seg Neuts % (Manual) Lymphocytes % (Manual) Seg Neutrophils # Seg Neutrophils # Man Lymphocytes # (Manual) D-Dimer ABG pH POC ABG pCO2 POC ABG pO2 ABG pO2 ABG HCO3 ABG O2 Saturation ABG Base Excess ABG Oxyhemoglobin ABG Sodium ABG Chloride ABG Glucose Oxyhemoglobin Carboxyhemoglobin Sodium Potassium Chloride Carbon Dioxide BUN Creatinine Glucose POC Glucose 135 H 148 H 212 H Hemoglobin A1c Magnesium Ferritin AST ALT Alkaline Phosphatase Lactate Dehydrogenase C-Reactive Protein Total Protein Albumin Arterial Blood Glucose Coronavirus (PCR) 07/09/21 07/09/21 07/10/21 15:21 21:12 05:40 WBC MCV MCH MCHC RDW Lymph % (Auto) [place] % (Auto) Eos % (Auto) Lymph # (Auto) [place] # (Auto) Eos # (Auto) Baso # (Auto) Seg Neutrophils % Seg Neuts % (Manual) Lymphocytes % (Manual) Seg Neutrophils # Seg Neutrophils # Man Lymphocytes # (Manual) D-Dimer ABG pH POC ABG pCO2 POC ABG pO2 ABG pO2 ABG HCO3 ABG O2 Saturation ABG Base Excess ABG Oxyhemoglobin ABG Sodium ABG Chloride ABG Glucose Oxyhemoglobin Carboxyhemoglobin Sodium Potassium 3.3 L Chloride 95.1 L Carbon Dioxide 39 H BUN Creatinine 0.2 L Glucose 122 H POC Glucose 128 H 196 H Hemoglobin A1c Magnesium Ferritin AST ALT Alkaline Phosphatase Lactate Dehydrogenase C-Reactive Protein Total Protein Albumin Arterial Blood Glucose Coronavirus (PCR) 07/10/21 07/10/21 07/10/21 07:38 11:15 16:29 WBC MCV MCH MCHC RDW Lymph % (Auto) [place] % (Auto) Eos % (Auto) Lymph # (Auto) [place] # (Auto) Eos # (Auto) Baso # (Auto) Seg Neutrophils % Seg Neuts % (Manual) Lymphocytes % (Manual) Seg Neutrophils # Seg Neutrophils # Man Lymphocytes # (Manual) D-Dimer ABG pH POC ABG pCO2 POC ABG pO2 ABG pO2 ABG HCO3 ABG O2 Saturation ABG Base Excess ABG Oxyhemoglobin ABG Sodium ABG Chloride ABG Glucose Oxyhemoglobin Carboxyhemoglobin Sodium Potassium Chloride Carbon Dioxide BUN Creatinine Glucose POC Glucose 128 H 175 H 174 H Hemoglobin A1c Magnesium Ferritin AST ALT Alkaline Phosphatase Lactate Dehydrogenase C-Reactive Protein Total Protein Albumin Arterial Blood Glucose Coronavirus (PCR) 07/10/21 07/11/21 07/11/21 20:49 05:50 12:08 WBC MCV MCH MCHC RDW Lymph % (Auto) [place] % (Auto) Eos % (Auto) Lymph # (Auto) [place] # (Auto) Eos # (Auto) Baso # (Auto) Seg Neutrophils % Seg Neuts % (Manual) Lymphocytes % (Manual) Seg Neutrophils # Seg Neutrophils # Man Lymphocytes # (Manual) D-Dimer ABG pH POC ABG pCO2 POC ABG pO2 ABG pO2 ABG HCO3 ABG O2 Saturation ABG Base Excess ABG Oxyhemoglobin ABG Sodium ABG Chloride ABG Glucose Oxyhemoglobin Carboxyhemoglobin Sodium Potassium Chloride 97.3 L Carbon Dioxide 34 H BUN Creatinine 0.2 L Glucose 109 H POC Glucose 142 H 220 H Hemoglobin A1c Magnesium Ferritin AST ALT Alkaline Phosphatase Lactate Dehydrogenase C-Reactive Protein Total Protein Albumin Arterial Blood Glucose Coronavirus (PCR) 07/11/21 07/11/21 07/12/21 17:09 21:55 07:36 WBC MCV MCH MCHC RDW Lymph % (Auto) [place] % (Auto) Eos % (Auto) Lymph # (Auto) [place] # (Auto) Eos # (Auto) Baso # (Auto) Seg Neutrophils % Seg Neuts % (Manual) Lymphocytes % (Manual) Seg Neutrophils # Seg Neutrophils # Man Lymphocytes # (Manual) D-Dimer ABG pH POC ABG pCO2 POC ABG pO2 ABG pO2 ABG HCO3 ABG O2 Saturation ABG Base Excess ABG Oxyhemoglobin ABG Sodium ABG Chloride ABG Glucose Oxyhemoglobin Carboxyhemoglobin Sodium Potassium Chloride Carbon Dioxide BUN Creatinine Glucose POC Glucose 219 H 124 H 114 H Hemoglobin A1c Magnesium Ferritin AST ALT Alkaline Phosphatase Lactate Dehydrogenase C-Reactive Protein Total Protein Albumin Arterial Blood Glucose Coronavirus (PCR) 07/12/21 07/12/21 07/12/21 11:08 15:43 22:20 WBC MCV MCH MCHC RDW Lymph % (Auto) [place] % (Auto) Eos % (Auto) Lymph # (Auto) [place] # (Auto) Eos # (Auto) Baso # (Auto) Seg Neutrophils % Seg Neuts % (Manual) Lymphocytes % (Manual) Seg Neutrophils # Seg Neutrophils # Man Lymphocytes # (Manual) D-Dimer ABG pH POC ABG pCO2 POC ABG pO2 ABG pO2 ABG HCO3 ABG O2 Saturation ABG Base Excess ABG Oxyhemoglobin ABG Sodium ABG Chloride ABG Glucose Oxyhemoglobin Carboxyhemoglobin Sodium Potassium Chloride Carbon Dioxide BUN Creatinine Glucose POC Glucose 195 H 276 H 189 H Hemoglobin A1c Magnesium Ferritin AST ALT Alkaline Phosphatase Lactate Dehydrogenase C-Reactive Protein Total Protein Albumin Arterial Blood Glucose Coronavirus (PCR) 07/13/21 07/13/21 07/13/21 08:01 08:08 10:17 WBC MCV MCH MCHC RDW Lymph % (Auto) [place] % (Auto) Eos % (Auto) Lymph # (Auto) [place] # (Auto) Eos # (Auto) Baso # (Auto) Seg Neutrophils % Seg Neuts % (Manual) Lymphocytes % (Manual) Seg Neutrophils # Seg Neutrophils # Man Lymphocytes # (Manual) D-Dimer ABG pH POC ABG pCO2 POC ABG pO2 ABG pO2 ABG HCO3 ABG O2 Saturation ABG Base Excess ABG Oxyhemoglobin ABG Sodium ABG Chloride ABG Glucose Oxyhemoglobin Carboxyhemoglobin Sodium Potassium Chloride 94.4 L Carbon Dioxide 34 H BUN Creatinine 0.3 L Glucose 149 H POC Glucose 132 H 265 H Hemoglobin A1c Magnesium Ferritin AST ALT Alkaline Phosphatase Lactate Dehydrogenase C-Reactive Protein Total Protein Albumin Arterial Blood Glucose Coronavirus (PCR) 07/13/21 07/13/21 07/14/21 17:58 21:41 07:34 WBC MCV MCH MCHC RDW Lymph % (Auto) [place] % (Auto) Eos % (Auto) Lymph # (Auto) [place] # (Auto) Eos # (Auto) Baso # (Auto) Seg Neutrophils % Seg Neuts % (Manual) Lymphocytes % (Manual) Seg Neutrophils # Seg Neutrophils # Man Lymphocytes # (Manual) D-Dimer ABG pH POC ABG pCO2 POC ABG pO2 ABG pO2 ABG HCO3 ABG O2 Saturation ABG Base Excess ABG Oxyhemoglobin ABG Sodium ABG Chloride ABG Glucose Oxyhemoglobin Carboxyhemoglobin Sodium Potassium Chloride Carbon Dioxide BUN Creatinine Glucose POC Glucose 217 H 223 H 116 H Hemoglobin A1c Magnesium Ferritin AST ALT Alkaline Phosphatase Lactate Dehydrogenase C-Reactive Protein Total Protein Albumin Arterial Blood Glucose Coronavirus (PCR) 07/14/21 07/14/21 07/14/21 10:50 17:33 20:51 WBC MCV MCH MCHC RDW Lymph % (Auto) [place] % (Auto) Eos % (Auto) Lymph # (Auto) [place] # (Auto) Eos # (Auto) Baso # (Auto) Seg Neutrophils % Seg Neuts % (Manual) Lymphocytes % (Manual) Seg Neutrophils # Seg Neutrophils # Man Lymphocytes # (Manual) D-Dimer ABG pH POC ABG pCO2 POC ABG pO2 ABG pO2 ABG HCO3 ABG O2 Saturation ABG Base Excess ABG Oxyhemoglobin ABG Sodium ABG Chloride ABG Glucose Oxyhemoglobin Carboxyhemoglobin Sodium Potassium Chloride Carbon Dioxide BUN Creatinine Glucose POC Glucose 191 H 173 H 132 H Hemoglobin A1c Magnesium Ferritin AST ALT Alkaline Phosphatase Lactate Dehydrogenase C-Reactive Protein Total Protein Albumin Arterial Blood Glucose Coronavirus (PCR) 07/15/21 07/15/21 07/15/21 04:00 07:59 12:31 WBC MCV MCH MCHC RDW Lymph % (Auto) [place] % (Auto) Eos % (Auto) Lymph # (Auto) [place] # (Auto) Eos # (Auto) Baso # (Auto) Seg Neutrophils % Seg Neuts % (Manual) Lymphocytes % (Manual) Seg Neutrophils # Seg Neutrophils # Man Lymphocytes # (Manual) D-Dimer ABG pH POC ABG pCO2 POC ABG pO2 ABG pO2 ABG HCO3 ABG O2 Saturation ABG Base Excess ABG Oxyhemoglobin ABG Sodium ABG Chloride ABG Glucose Oxyhemoglobin Carboxyhemoglobin Sodium Potassium Chloride 96.0 L Carbon Dioxide 32 H BUN Creatinine 0.3 L Glucose 208 H POC Glucose 117 H 195 H Hemoglobin A1c Magnesium Ferritin AST ALT Alkaline Phosphatase Lactate Dehydrogenase C-Reactive Protein Total Protein Albumin Arterial Blood Glucose Coronavirus (PCR) 07/15/21 07/15/21 07/16/21 18:00 20:57 04:40 WBC MCV MCH MCHC RDW 17.1 H Lymph % (Auto) [place] % (Auto) Eos % (Auto) Lymph # (Auto) [place] # (Auto) Eos # (Auto) Baso # (Auto) Seg Neutrophils % Seg Neuts % (Manual) Lymphocytes % (Manual) Seg Neutrophils # Seg Neutrophils # Man Lymphocytes # (Manual) D-Dimer ABG pH POC ABG pCO2 POC ABG pO2 ABG pO2 ABG HCO3 ABG O2 Saturation ABG Base Excess ABG Oxyhemoglobin ABG Sodium ABG Chloride ABG Glucose Oxyhemoglobin Carboxyhemoglobin Sodium Potassium Chloride Carbon Dioxide BUN Creatinine Glucose POC Glucose 217 H 111 H Hemoglobin A1c Magnesium Ferritin AST ALT Alkaline Phosphatase Lactate Dehydrogenase C-Reactive Protein Total Protein Albumin Arterial Blood Glucose Coronavirus (PCR) 07/16/21 07/16/21 07/16/21 04:40 07:08 11:11 WBC MCV MCH MCHC RDW Lymph % (Auto) [place] % (Auto) Eos % (Auto) Lymph # (Auto) [place] # (Auto) Eos # (Auto) Baso # (Auto) Seg Neutrophils % Seg Neuts % (Manual) Lymphocytes % (Manual) Seg Neutrophils # Seg Neutrophils # Man Lymphocytes # (Manual) D-Dimer ABG pH POC ABG pCO2 POC ABG pO2 ABG pO2 ABG HCO3 ABG O2 Saturation ABG Base Excess ABG Oxyhemoglobin ABG Sodium ABG Chloride ABG Glucose Oxyhemoglobin Carboxyhemoglobin Sodium Potassium 3.4 L Chloride 94.6 L Carbon Dioxide 36 H BUN Creatinine < 0.2 L Glucose 101 H POC Glucose 118 H 184 H Hemoglobin A1c Magnesium Ferritin AST ALT Alkaline Phosphatase Lactate Dehydrogenase C-Reactive Protein Total Protein Albumin Arterial Blood Glucose Coronavirus (PCR) 07/16/21 07/16/21 07/17/21 17:29 22:01 08:10 WBC MCV MCH MCHC RDW Lymph % (Auto) [place] % (Auto) Eos % (Auto) Lymph # (Auto) [place] # (Auto) Eos # (Auto) Baso # (Auto) Seg Neutrophils % Seg Neuts % (Manual) Lymphocytes % (Manual) Seg Neutrophils # Seg Neutrophils # Man Lymphocytes # (Manual) D-Dimer ABG pH POC ABG pCO2 POC ABG pO2 ABG pO2 ABG HCO3 ABG O2 Saturation ABG Base Excess ABG Oxyhemoglobin ABG Sodium ABG Chloride ABG Glucose Oxyhemoglobin Carboxyhemoglobin Sodium Potassium Chloride Carbon Dioxide BUN Creatinine Glucose POC Glucose 200 H 147 H 118 H Hemoglobin A1c Magnesium Ferritin AST ALT Alkaline Phosphatase Lactate Dehydrogenase C-Reactive Protein Total Protein Albumin Arterial Blood Glucose Coronavirus (PCR) 07/17/21 07/17/21 07/17/21 11:38 16:24 21:13 WBC MCV MCH MCHC RDW Lymph % (Auto) [place] % (Auto) Eos % (Auto) Lymph # (Auto) [place] # (Auto) Eos # (Auto) Baso # (Auto) Seg Neutrophils % Seg Neuts % (Manual) Lymphocytes % (Manual) Seg Neutrophils # Seg Neutrophils # Man Lymphocytes # (Manual) D-Dimer ABG pH POC ABG pCO2 POC ABG pO2 ABG pO2 ABG HCO3 ABG O2 Saturation ABG Base Excess ABG Oxyhemoglobin ABG Sodium ABG Chloride ABG Glucose Oxyhemoglobin Carboxyhemoglobin Sodium Potassium Chloride Carbon Dioxide BUN Creatinine Glucose POC Glucose 151 H 268 H 115 H Hemoglobin A1c Magnesium Ferritin AST ALT Alkaline Phosphatase Lactate Dehydrogenase C-Reactive Protein Total Protein Albumin Arterial Blood Glucose Coronavirus (PCR) 07/18/21 07/18/21 07/18/21 07:58 12:29 20:24 WBC MCV MCH MCHC RDW Lymph % (Auto) [place] % (Auto) Eos % (Auto) Lymph # (Auto) [place] # (Auto) Eos # (Auto) Baso # (Auto) Seg Neutrophils % Seg Neuts % (Manual) Lymphocytes % (Manual) Seg Neutrophils # Seg Neutrophils # Man Lymphocytes # (Manual) D-Dimer ABG pH POC ABG pCO2 POC ABG pO2 ABG pO2 ABG HCO3 ABG O2 Saturation ABG Base Excess ABG Oxyhemoglobin ABG Sodium ABG Chloride ABG Glucose Oxyhemoglobin Carboxyhemoglobin Sodium Potassium Chloride Carbon Dioxide BUN Creatinine Glucose POC Glucose 135 H 139 H 130 H Hemoglobin A1c Magnesium Ferritin AST ALT Alkaline Phosphatase Lactate Dehydrogenase C-Reactive Protein Total Protein Albumin Arterial Blood Glucose Coronavirus (PCR) 07/19/21 07/19/21 07/19/21 06:55 06:55 07:54 WBC 14.5 H MCV MCH MCHC RDW 17.3 H Lymph % (Auto) 9.6 L [place] % (Auto) Eos % (Auto) Lymph # (Auto) [place] # (Auto) Eos # (Auto) 0.6 H Baso # (Auto) Seg Neutrophils % 80.3 H Seg Neuts % (Manual) Lymphocytes % (Manual) Seg Neutrophils # 11.7 H Seg Neutrophils # Man Lymphocytes # (Manual) D-Dimer ABG pH POC ABG pCO2 67.9 H POC ABG pO2 131.0 H ABG pO2 ABG HCO3 ABG O2 Saturation ABG Base Excess ABG Oxyhemoglobin ABG Sodium ABG Chloride 97.0 L ABG Glucose 133 H Oxyhemoglobin Carboxyhemoglobin Sodium Potassium Chloride 95.3 L Carbon Dioxide 35 H BUN Creatinine < 0.2 L Glucose 138 H POC Glucose Hemoglobin A1c Magnesium Ferritin AST ALT Alkaline Phosphatase Lactate Dehydrogenase C-Reactive Protein Total Protein Albumin Arterial Blood Glucose 133 H Coronavirus (PCR) 07/19/21 07/19/21 07/19/21 08:10 11:43 17:04 WBC MCV MCH MCHC RDW Lymph % (Auto) [place] % (Auto) Eos % (Auto) Lymph # (Auto) [place] # (Auto) Eos # (Auto) Baso # (Auto) Seg Neutrophils % Seg Neuts % (Manual) Lymphocytes % (Manual) Seg Neutrophils # Seg Neutrophils # Man Lymphocytes # (Manual) D-Dimer ABG pH POC ABG pCO2 POC ABG pO2 ABG pO2 ABG HCO3 ABG O2 Saturation ABG Base Excess ABG Oxyhemoglobin ABG Sodium ABG Chloride ABG Glucose Oxyhemoglobin Carboxyhemoglobin Sodium Potassium Chloride Carbon Dioxide BUN Creatinine Glucose POC Glucose 129 H 126 H 108 H Hemoglobin A1c Magnesium Ferritin AST ALT Alkaline Phosphatase Lactate Dehydrogenase C-Reactive Protein Total Protein Albumin Arterial Blood Glucose Coronavirus (PCR) 07/19/21 07/20/21 07/20/21 21:10 04:00 04:00 WBC MCV MCH MCHC RDW 17.0 H Lymph % (Auto) [place] % (Auto) 8.9 H Eos % (Auto) 6.3 H Lymph # (Auto) [place] # (Auto) 0.9 H Eos # (Auto) 0.6 H Baso # (Auto) Seg Neutrophils % 70.2 H Seg Neuts % (Manual) Lymphocytes % (Manual) Seg Neutrophils # Seg Neutrophils # Man Lymphocytes # (Manual) D-Dimer ABG pH POC ABG pCO2 POC ABG pO2 ABG pO2 ABG HCO3 ABG O2 Saturation ABG Base Excess ABG Oxyhemoglobin ABG Sodium ABG Chloride ABG Glucose Oxyhemoglobin Carboxyhemoglobin Sodium Potassium Chloride 96.7 L Carbon Dioxide 36 H BUN Creatinine 0.2 L Glucose 102 H POC Glucose 109 H Hemoglobin A1c Magnesium Ferritin AST ALT Alkaline Phosphatase Lactate Dehydrogenase C-Reactive Protein Total Protein Albumin 3.2 L Arterial Blood Glucose Coronavirus (PCR) 07/20/21 07/20/21 07/20/21 11:15 15:34 17:01 WBC MCV MCH MCHC RDW Lymph % (Auto) [place] % (Auto) Eos % (Auto) Lymph # (Auto) [place] # (Auto) Eos # (Auto) Baso # (Auto) Seg Neutrophils % Seg Neuts % (Manual) Lymphocytes % (Manual) Seg Neutrophils # Seg Neutrophils # Man Lymphocytes # (Manual) D-Dimer ABG pH POC ABG pCO2 POC ABG pO2 ABG pO2 ABG HCO3 ABG O2 Saturation ABG Base Excess ABG Oxyhemoglobin ABG Sodium ABG Chloride ABG Glucose Oxyhemoglobin Carboxyhemoglobin Sodium Potassium Chloride Carbon Dioxide BUN Creatinine Glucose POC Glucose 109 H 152 H 125 H Hemoglobin A1c Magnesium Ferritin AST ALT Alkaline Phosphatase Lactate Dehydrogenase C-Reactive Protein Total Protein Albumin Arterial Blood Glucose Coronavirus (PCR) 07/20/21 07/21/21 07/21/21 21:00 04:48 04:48 WBC 12.8 H MCV MCH MCHC RDW 16.8 H Lymph % (Auto) 9.3 L [place] % (Auto) Eos % (Auto) Lymph # (Auto) [place] # (Auto) 0.9 H Eos # (Auto) Baso # (Auto) Seg Neutrophils % 81.1 H Seg Neuts % (Manual) Lymphocytes % (Manual) Seg Neutrophils # 10.4 H Seg Neutrophils # Man Lymphocytes # (Manual) D-Dimer ABG pH POC ABG pCO2 POC ABG pO2 ABG pO2 ABG HCO3 ABG O2 Saturation ABG Base Excess ABG Oxyhemoglobin ABG Sodium ABG Chloride ABG Glucose Oxyhemoglobin Carboxyhemoglobin Sodium Potassium Chloride 95.4 L Carbon Dioxide 33 H BUN 6 L Creatinine < 0.2 L Glucose 155 H POC Glucose 211 H Hemoglobin A1c Magnesium 1.60 L Ferritin AST ALT Alkaline Phosphatase Lactate Dehydrogenase C-Reactive Protein Total Protein Albumin Arterial Blood Glucose Coronavirus (PCR) 07/21/21 07/21/21 07/21/21 07:52 11:05 17:01 WBC MCV MCH MCHC RDW Lymph % (Auto) [place] % (Auto) Eos % (Auto) Lymph # (Auto) [place] # (Auto) Eos # (Auto) Baso # (Auto) Seg Neutrophils % Seg Neuts % (Manual) Lymphocytes % (Manual) Seg Neutrophils # Seg Neutrophils # Man Lymphocytes # (Manual) D-Dimer ABG pH POC ABG pCO2 POC ABG pO2 ABG pO2 ABG HCO3 ABG O2 Saturation ABG Base Excess ABG Oxyhemoglobin ABG Sodium ABG Chloride ABG Glucose Oxyhemoglobin Carboxyhemoglobin Sodium Potassium Chloride Carbon Dioxide BUN Creatinine Glucose POC Glucose 116 H 207 H 133 H Hemoglobin A1c Magnesium Ferritin AST ALT Alkaline Phosphatase Lactate Dehydrogenase C-Reactive Protein Total Protein Albumin Arterial Blood Glucose Coronavirus (PCR) 07/21/21 07/22/21 07/22/21 21:17 07:55 07:55 WBC MCV MCH MCHC RDW 16.5 H Lymph % (Auto) [place] % (Auto) 8.6 H Eos % (Auto) Lymph # (Auto) [place] # (Auto) Eos # (Auto) Baso # (Auto) Seg Neutrophils % 72.3 H Seg Neuts % (Manual) Lymphocytes % (Manual) Seg Neutrophils # Seg Neutrophils # Man Lymphocytes # (Manual) D-Dimer ABG pH POC ABG pCO2 POC ABG pO2 ABG pO2 ABG HCO3 ABG O2 Saturation ABG Base Excess ABG Oxyhemoglobin ABG Sodium ABG Chloride ABG Glucose Oxyhemoglobin Carboxyhemoglobin Sodium Potassium Chloride 94.6 L Carbon Dioxide 42 H* D BUN 5 L Creatinine < 0.2 L Glucose POC Glucose 152 H Hemoglobin A1c Magnesium Ferritin AST ALT Alkaline Phosphatase Lactate Dehydrogenase C-Reactive Protein Total Protein Albumin Arterial Blood Glucose Coronavirus (PCR) 07/22/21 07/22/21 07/22/21 11:25 12:05 15:40 WBC MCV MCH MCHC RDW Lymph % (Auto) [place] % (Auto) Eos % (Auto) Lymph # (Auto) [place] # (Auto) Eos # (Auto) Baso # (Auto) Seg Neutrophils % Seg Neuts % (Manual) Lymphocytes % (Manual) Seg Neutrophils # Seg Neutrophils # Man Lymphocytes # (Manual) D-Dimer ABG pH 7.338 L POC ABG pCO2 POC ABG pO2 ABG pO2 66.1 L ABG HCO3 45.0 H ABG O2 Saturation 94.2 L ABG Base Excess 15.2 H ABG Oxyhemoglobin ABG Sodium ABG Chloride ABG Glucose Oxyhemoglobin 91.9 L Carboxyhemoglobin Sodium Potassium Chloride Carbon Dioxide BUN Creatinine Glucose POC Glucose 146 H 219 H Hemoglobin A1c Magnesium Ferritin AST ALT Alkaline Phosphatase Lactate Dehydrogenase C-Reactive Protein Total Protein Albumin Arterial Blood Glucose Coronavirus (PCR) 07/22/21 07/23/21 07/23/21 21:26 04:35 04:35 WBC MCV 98 H MCH MCHC RDW 16.2 H Lymph % (Auto) 7.9 L [place] % (Auto) Eos % (Auto) Lymph # (Auto) 0.9 L [place] # (Auto) Eos # (Auto) Baso # (Auto) Seg Neutrophils % 85.3 H Seg Neuts % (Manual) Lymphocytes % (Manual) Seg Neutrophils # 9.2 H Seg Neutrophils # Man Lymphocytes # (Manual) D-Dimer ABG pH POC ABG pCO2 POC ABG pO2 ABG pO2 ABG HCO3 ABG O2 Saturation ABG Base Excess ABG Oxyhemoglobin ABG Sodium ABG Chloride ABG Glucose Oxyhemoglobin Carboxyhemoglobin Sodium Potassium Chloride 93.9 L Carbon Dioxide 44 H* BUN Creatinine < 0.2 L Glucose 149 H POC Glucose 131 H Hemoglobin A1c Magnesium Ferritin AST ALT Alkaline Phosphatase Lactate Dehydrogenase C-Reactive Protein Total Protein Albumin Arterial Blood Glucose Coronavirus (PCR) 07/23/21 07/23/21 07/23/21 07:20 11:34 16:11 WBC MCV MCH MCHC RDW Lymph % (Auto) [place] % (Auto) Eos % (Auto) Lymph # (Auto) [place] # (Auto) Eos # (Auto) Baso # (Auto) Seg Neutrophils % Seg Neuts % (Manual) Lymphocytes % (Manual) Seg Neutrophils # Seg Neutrophils # Man Lymphocytes # (Manual) D-Dimer ABG pH POC ABG pCO2 POC ABG pO2 ABG pO2 ABG HCO3 ABG O2 Saturation ABG Base Excess ABG Oxyhemoglobin ABG Sodium ABG Chloride ABG Glucose Oxyhemoglobin Carboxyhemoglobin Sodium Potassium Chloride Carbon Dioxide BUN Creatinine Glucose POC Glucose 116 H 172 H 110 H Hemoglobin A1c Magnesium Ferritin AST ALT Alkaline Phosphatase Lactate Dehydrogenase C-Reactive Protein Total Protein Albumin Arterial Blood Glucose Coronavirus (PCR) 07/23/21 07/23/21 07/24/21 18:11 21:33 04:10 WBC MCV MCH MCHC RDW Lymph % (Auto) [place] % (Auto) Eos % (Auto) Lymph # (Auto) [place] # (Auto) Eos # (Auto) Baso # (Auto) Seg Neutrophils % Seg Neuts % (Manual) Lymphocytes % (Manual) Seg Neutrophils # Seg Neutrophils # Man Lymphocytes # (Manual) D-Dimer ABG pH POC ABG pCO2 78.3 H POC ABG pO2 80.7 L ABG pO2 ABG HCO3 ABG O2 Saturation ABG Base Excess ABG Oxyhemoglobin ABG Sodium 134.9 L ABG Chloride 89.0 L ABG Glucose 200 H Oxyhemoglobin Carboxyhemoglobin Sodium Potassium 3.5 L D Chloride 92.4 L Carbon Dioxide 42 H* BUN Creatinine < 0.2 L Glucose 123 H POC Glucose 108 H Hemoglobin A1c Magnesium Ferritin AST ALT Alkaline Phosphatase Lactate Dehydrogenase C-Reactive Protein Total Protein Albumin Arterial Blood Glucose 200 H Coronavirus (PCR) 07/24/21 07/24/21 07/24/21 11:01 16:56 22:06 WBC MCV MCH MCHC RDW Lymph % (Auto) [place] % (Auto) Eos % (Auto) Lymph # (Auto) [place] # (Auto) Eos # (Auto) Baso # (Auto) Seg Neutrophils % Seg Neuts % (Manual) Lymphocytes % (Manual) Seg Neutrophils # Seg Neutrophils # Man Lymphocytes # (Manual) D-Dimer ABG pH POC ABG pCO2 POC ABG pO2 ABG pO2 ABG HCO3 ABG O2 Saturation ABG Base Excess ABG Oxyhemoglobin ABG Sodium ABG Chloride ABG Glucose Oxyhemoglobin Carboxyhemoglobin Sodium Potassium Chloride Carbon Dioxide BUN Creatinine Glucose POC Glucose 171 H 111 H 136 H Hemoglobin A1c Magnesium Ferritin AST ALT Alkaline Phosphatase Lactate Dehydrogenase C-Reactive Protein Total Protein Albumin Arterial Blood Glucose Coronavirus (PCR) 07/25/21 07/25/21 07/25/21 07:40 10:59 11:58 WBC MCV MCH MCHC RDW Lymph % (Auto) [place] % (Auto) Eos % (Auto) Lymph # (Auto) [place] # (Auto) Eos # (Auto) Baso # (Auto) Seg Neutrophils % Seg Neuts % (Manual) Lymphocytes % (Manual) Seg Neutrophils # Seg Neutrophils # Man Lymphocytes # (Manual) D-Dimer ABG pH POC ABG pCO2 POC ABG pO2 ABG pO2 ABG HCO3 ABG O2 Saturation ABG Base Excess ABG Oxyhemoglobin ABG Sodium ABG Chloride ABG Glucose Oxyhemoglobin Carboxyhemoglobin Sodium Potassium Chloride 88.6 L Carbon Dioxide 43 H* BUN Creatinine 0.2 L Glucose 180 H POC Glucose 120 H 153 H Hemoglobin A1c Magnesium Ferritin AST ALT Alkaline Phosphatase Lactate Dehydrogenase C-Reactive Protein Total Protein Albumin Arterial Blood Glucose Coronavirus (PCR) 07/25/21 07/25/21 07/26/21 16:03 20:18 09:56 WBC MCV MCH MCHC RDW Lymph % (Auto) [place] % (Auto) Eos % (Auto) Lymph # (Auto) [place] # (Auto) Eos # (Auto) Baso # (Auto) Seg Neutrophils % Seg Neuts % (Manual) Lymphocytes % (Manual) Seg Neutrophils # Seg Neutrophils # Man Lymphocytes # (Manual) D-Dimer ABG pH POC ABG pCO2 POC ABG pO2 ABG pO2 ABG HCO3 ABG O2 Saturation ABG Base Excess ABG Oxyhemoglobin ABG Sodium ABG Chloride ABG Glucose Oxyhemoglobin Carboxyhemoglobin Sodium Potassium Chloride 91.3 L Carbon Dioxide 45 H* BUN Creatinine < 0.2 L Glucose 128 H POC Glucose 143 H 133 H Hemoglobin A1c Magnesium Ferritin AST ALT Alkaline Phosphatase Lactate Dehydrogenase C-Reactive Protein Total Protein Albumin 3.2 L Arterial Blood Glucose Coronavirus (PCR) 07/26/21 07/26/21 07/27/21 17:56 21:24 07:10 WBC MCV MCH MCHC RDW Lymph % (Auto) [place] % (Auto) Eos % (Auto) Lymph # (Auto) [place] # (Auto) Eos # (Auto) Baso # (Auto) Seg Neutrophils % Seg Neuts % (Manual) Lymphocytes % (Manual) Seg Neutrophils # Seg Neutrophils # Man Lymphocytes # (Manual) D-Dimer ABG pH POC ABG pCO2 POC ABG pO2 ABG pO2 ABG HCO3 ABG O2 Saturation ABG Base Excess ABG Oxyhemoglobin ABG Sodium ABG Chloride ABG Glucose Oxyhemoglobin Carboxyhemoglobin Sodium Potassium Chloride Carbon Dioxide BUN Creatinine Glucose POC Glucose 170 H 122 H 119 H Hemoglobin A1c Magnesium Ferritin AST ALT Alkaline Phosphatase Lactate Dehydrogenase C-Reactive Protein Total Protein Albumin Arterial Blood Glucose Coronavirus (PCR) 07/27/21 07/27/21 07/28/21 11:44 21:31 07:30 WBC MCV MCH MCHC RDW Lymph % (Auto) [place] % (Auto) Eos % (Auto) Lymph # (Auto) [place] # (Auto) Eos # (Auto) Baso # (Auto) Seg Neutrophils % Seg Neuts % (Manual) Lymphocytes % (Manual) Seg Neutrophils # Seg Neutrophils # Man Lymphocytes # (Manual) D-Dimer ABG pH POC ABG pCO2 POC ABG pO2 ABG pO2 ABG HCO3 ABG O2 Saturation ABG Base Excess ABG Oxyhemoglobin ABG Sodium ABG Chloride ABG Glucose Oxyhemoglobin Carboxyhemoglobin Sodium Potassium 3.4 L D Chloride 91.4 L Carbon Dioxide 39 H BUN Creatinine < 0.2 L Glucose 140 H POC Glucose 176 H 162 H Hemoglobin A1c Magnesium Ferritin AST ALT Alkaline Phosphatase Lactate Dehydrogenase C-Reactive Protein Total Protein Albumin Arterial Blood Glucose Coronavirus (PCR) 07/28/21 07/28/21 07/28/21 08:43 12:25 16:40 WBC MCV MCH MCHC RDW Lymph % (Auto) [place] % (Auto) Eos % (Auto) Lymph # (Auto) [place] # (Auto) Eos # (Auto) Baso # (Auto) Seg Neutrophils % Seg Neuts % (Manual) Lymphocytes % (Manual) Seg Neutrophils # Seg Neutrophils # Man Lymphocytes # (Manual) D-Dimer ABG pH POC ABG pCO2 POC ABG pO2 ABG pO2 ABG HCO3 ABG O2 Saturation ABG Base Excess ABG Oxyhemoglobin ABG Sodium ABG Chloride ABG Glucose Oxyhemoglobin Carboxyhemoglobin Sodium Potassium Chloride Carbon Dioxide BUN Creatinine Glucose POC Glucose 122 H 162 H 234 H Hemoglobin A1c Magnesium Ferritin AST ALT Alkaline Phosphatase Lactate Dehydrogenase C-Reactive Protein Total Protein Albumin Arterial Blood Glucose Coronavirus (PCR) 07/28/21 07/29/21 07/29/21 21:27 04:40 09:51 WBC MCV MCH MCHC RDW Lymph % (Auto) [place] % (Auto) Eos % (Auto) Lymph # (Auto) [place] # (Auto) Eos # (Auto) Baso # (Auto) Seg Neutrophils % Seg Neuts % (Manual) Lymphocytes % (Manual) Seg Neutrophils # Seg Neutrophils # Man Lymphocytes # (Manual) D-Dimer ABG pH POC ABG pCO2 POC ABG pO2 ABG pO2 ABG HCO3 ABG O2 Saturation ABG Base Excess ABG Oxyhemoglobin ABG Sodium ABG Chloride ABG Glucose Oxyhemoglobin Carboxyhemoglobin Sodium Potassium 3.4 L Chloride 92.3 L Carbon Dioxide 40 H BUN Creatinine < 0.2 L Glucose 125 H POC Glucose 155 H 112 H Hemoglobin A1c Magnesium Ferritin AST ALT Alkaline Phosphatase Lactate Dehydrogenase C-Reactive Protein Total Protein Albumin Arterial Blood Glucose Coronavirus (PCR) 07/29/21 07/29/21 07/29/21 12:03 16:39 21:28 WBC MCV MCH MCHC RDW Lymph % (Auto) [place] % (Auto) Eos % (Auto) Lymph # (Auto) [place] # (Auto) Eos # (Auto) Baso # (Auto) Seg Neutrophils % Seg Neuts % (Manual) Lymphocytes % (Manual) Seg Neutrophils # Seg Neutrophils # Man Lymphocytes # (Manual) D-Dimer ABG pH POC ABG pCO2 POC ABG pO2 ABG pO2 ABG HCO3 ABG O2 Saturation ABG Base Excess ABG Oxyhemoglobin ABG Sodium ABG Chloride ABG Glucose Oxyhemoglobin Carboxyhemoglobin Sodium Potassium Chloride Carbon Dioxide BUN Creatinine Glucose POC Glucose 188 H 141 H 130 H Hemoglobin A1c Magnesium Ferritin AST ALT Alkaline Phosphatase Lactate Dehydrogenase C-Reactive Protein Total Protein Albumin Arterial Blood Glucose Coronavirus (PCR) 07/30/21 07/30/21 07/30/21 08:37 11:56 22:25 WBC MCV MCH MCHC RDW Lymph % (Auto) [place] % (Auto) Eos % (Auto) Lymph # (Auto) [place] # (Auto) Eos # (Auto) Baso # (Auto) Seg Neutrophils % Seg Neuts % (Manual) Lymphocytes % (Manual) Seg Neutrophils # Seg Neutrophils # Man Lymphocytes # (Manual) D-Dimer ABG pH POC ABG pCO2 POC ABG pO2 ABG pO2 ABG HCO3 ABG O2 Saturation ABG Base Excess ABG Oxyhemoglobin ABG Sodium ABG Chloride ABG Glucose Oxyhemoglobin Carboxyhemoglobin Sodium Potassium Chloride Carbon Dioxide BUN Creatinine Glucose POC Glucose 133 H 156 H 118 H Hemoglobin A1c Magnesium Ferritin AST ALT Alkaline Phosphatase Lactate Dehydrogenase C-Reactive Protein Total Protein Albumin Arterial Blood Glucose Coronavirus (PCR) 07/31/21 07/31/21 07/31/21 06:43 11:55 16:39 WBC MCV MCH MCHC RDW Lymph % (Auto) [place] % (Auto) Eos % (Auto) Lymph # (Auto) [place] # (Auto) Eos # (Auto) Baso # (Auto) Seg Neutrophils % Seg Neuts % (Manual) Lymphocytes % (Manual) Seg Neutrophils # Seg Neutrophils # Man Lymphocytes # (Manual) D-Dimer ABG pH POC ABG pCO2 POC ABG pO2 ABG pO2 ABG HCO3 ABG O2 Saturation ABG Base Excess ABG Oxyhemoglobin ABG Sodium ABG Chloride ABG Glucose Oxyhemoglobin Carboxyhemoglobin Sodium Potassium Chloride Carbon Dioxide BUN Creatinine Glucose POC Glucose 115 H 114 H 185 H Hemoglobin A1c Magnesium Ferritin AST ALT Alkaline Phosphatase Lactate Dehydrogenase C-Reactive Protein Total Protein Albumin Arterial Blood Glucose Coronavirus (PCR) 07/31/21 08/01/21 08/01/21 23:22 11:35 15:34 WBC MCV MCH MCHC RDW Lymph % (Auto) [place] % (Auto) Eos % (Auto) Lymph # (Auto) [place] # (Auto) Eos # (Auto) Baso # (Auto) Seg Neutrophils % Seg Neuts % (Manual) Lymphocytes % (Manual) Seg Neutrophils # Seg Neutrophils # Man Lymphocytes # (Manual) D-Dimer ABG pH POC ABG pCO2 POC ABG pO2 ABG pO2 ABG HCO3 ABG O2 Saturation ABG Base Excess ABG Oxyhemoglobin ABG Sodium ABG Chloride ABG Glucose Oxyhemoglobin Carboxyhemoglobin Sodium Potassium Chloride Carbon Dioxide BUN Creatinine Glucose POC Glucose 213 H 122 H 142 H Hemoglobin A1c Magnesium Ferritin AST ALT Alkaline Phosphatase Lactate Dehydrogenase C-Reactive Protein Total Protein Albumin Arterial Blood Glucose Coronavirus (PCR) 08/01/21 08/02/21 08/02/21 22:15 07:41 11:58 WBC MCV MCH MCHC RDW Lymph % (Auto) [place] % (Auto) Eos % (Auto) Lymph # (Auto) [place] # (Auto) Eos # (Auto) Baso # (Auto) Seg Neutrophils % Seg Neuts % (Manual) Lymphocytes % (Manual) Seg Neutrophils # Seg Neutrophils # Man Lymphocytes # (Manual) D-Dimer ABG pH POC ABG pCO2 POC ABG pO2 ABG pO2 ABG HCO3 ABG O2 Saturation ABG Base Excess ABG Oxyhemoglobin ABG Sodium ABG Chloride ABG Glucose Oxyhemoglobin Carboxyhemoglobin Sodium Potassium Chloride Carbon Dioxide BUN Creatinine Glucose POC Glucose 121 H 109 H 136 H Hemoglobin A1c Magnesium Ferritin AST ALT Alkaline Phosphatase Lactate Dehydrogenase C-Reactive Protein Total Protein Albumin Arterial Blood Glucose Coronavirus (PCR) 08/02/21 08/03/21 08/03/21 21:19 07:47 11:18 WBC MCV MCH MCHC RDW Lymph % (Auto) [place] % (Auto) Eos % (Auto) Lymph # (Auto) [place] # (Auto) Eos # (Auto) Baso # (Auto) Seg Neutrophils % Seg Neuts % (Manual) Lymphocytes % (Manual) Seg Neutrophils # Seg Neutrophils # Man Lymphocytes # (Manual) D-Dimer ABG pH POC ABG pCO2 POC ABG pO2 ABG pO2 ABG HCO3 ABG O2 Saturation ABG Base Excess ABG Oxyhemoglobin ABG Sodium ABG Chloride ABG Glucose Oxyhemoglobin Carboxyhemoglobin Sodium Potassium Chloride Carbon Dioxide BUN Creatinine Glucose POC Glucose 159 H 111 H 202 H Hemoglobin A1c Magnesium Ferritin AST ALT Alkaline Phosphatase Lactate Dehydrogenase C-Reactive Protein Total Protein Albumin Arterial Blood Glucose Coronavirus (PCR) 08/03/21 08/03/21 08/04/21 16:47 21:26 07:57 WBC MCV MCH MCHC RDW Lymph % (Auto) [place] % (Auto) Eos % (Auto) Lymph # (Auto) [place] # (Auto) Eos # (Auto) Baso # (Auto) Seg Neutrophils % Seg Neuts % (Manual) Lymphocytes % (Manual) Seg Neutrophils # Seg Neutrophils # Man Lymphocytes # (Manual) D-Dimer ABG pH POC ABG pCO2 POC ABG pO2 ABG pO2 ABG HCO3 ABG O2 Saturation ABG Base Excess ABG Oxyhemoglobin ABG Sodium ABG Chloride ABG Glucose Oxyhemoglobin Carboxyhemoglobin Sodium Potassium Chloride Carbon Dioxide BUN Creatinine Glucose POC Glucose 133 H 148 H 129 H Hemoglobin A1c Magnesium Ferritin AST ALT Alkaline Phosphatase Lactate Dehydrogenase C-Reactive Protein Total Protein Albumin Arterial Blood Glucose Coronavirus (PCR) 08/04/21 08/04/21 08/04/21 08:05 11:42 16:53 WBC MCV MCH MCHC RDW Lymph % (Auto) [place] % (Auto) Eos % (Auto) Lymph # (Auto) [place] # (Auto) Eos # (Auto) Baso # (Auto) Seg Neutrophils % Seg Neuts % (Manual) Lymphocytes % (Manual) Seg Neutrophils # Seg Neutrophils # Man Lymphocytes # (Manual) D-Dimer ABG pH POC ABG pCO2 POC ABG pO2 ABG pO2 ABG HCO3 ABG O2 Saturation ABG Base Excess ABG Oxyhemoglobin ABG Sodium ABG Chloride ABG Glucose Oxyhemoglobin Carboxyhemoglobin Sodium Potassium Chloride Carbon Dioxide BUN Creatinine Glucose POC Glucose 145 H 187 H 112 H Hemoglobin A1c Magnesium Ferritin AST ALT Alkaline Phosphatase Lactate Dehydrogenase C-Reactive Protein Total Protein Albumin Arterial Blood Glucose Coronavirus (PCR) 08/04/21 08/05/21 08/05/21 21:27 07:35 11:19 WBC MCV MCH MCHC RDW Lymph % (Auto) [place] % (Auto) Eos % (Auto) Lymph # (Auto) [place] # (Auto) Eos # (Auto) Baso # (Auto) Seg Neutrophils % Seg Neuts % (Manual) Lymphocytes % (Manual) Seg Neutrophils # Seg Neutrophils # Man Lymphocytes # (Manual) D-Dimer ABG pH POC ABG pCO2 POC ABG pO2 ABG pO2 ABG HCO3 ABG O2 Saturation ABG Base Excess ABG Oxyhemoglobin ABG Sodium ABG Chloride ABG Glucose Oxyhemoglobin Carboxyhemoglobin Sodium Potassium Chloride Carbon Dioxide BUN Creatinine Glucose POC Glucose 189 H 146 H 244 H Hemoglobin A1c Magnesium Ferritin AST ALT Alkaline Phosphatase Lactate Dehydrogenase C-Reactive Protein Total Protein Albumin Arterial Blood Glucose Coronavirus (PCR) 08/05/21 08/06/21 08/06/21 22:16 07:29 11:16 WBC MCV MCH MCHC RDW Lymph % (Auto) [place] % (Auto) Eos % (Auto) Lymph # (Auto) [place] # (Auto) Eos # (Auto) Baso # (Auto) Seg Neutrophils % Seg Neuts % (Manual) Lymphocytes % (Manual) Seg Neutrophils # Seg Neutrophils # Man Lymphocytes # (Manual) D-Dimer ABG pH POC ABG pCO2 POC ABG pO2 ABG pO2 ABG HCO3 ABG O2 Saturation ABG Base Excess ABG Oxyhemoglobin ABG Sodium ABG Chloride ABG Glucose Oxyhemoglobin Carboxyhemoglobin Sodium Potassium Chloride Carbon Dioxide BUN Creatinine Glucose POC Glucose 122 H 128 H 228 H Hemoglobin A1c Magnesium Ferritin AST ALT Alkaline Phosphatase Lactate Dehydrogenase C-Reactive Protein Total Protein Albumin Arterial Blood Glucose Coronavirus (PCR) 08/06/21 08/07/21 08/07/21 21:13 07:17 11:54 WBC MCV MCH MCHC RDW Lymph % (Auto) [place] % (Auto) Eos % (Auto) Lymph # (Auto) [place] # (Auto) Eos # (Auto) Baso # (Auto) Seg Neutrophils % Seg Neuts % (Manual) Lymphocytes % (Manual) Seg Neutrophils # Seg Neutrophils # Man Lymphocytes # (Manual) D-Dimer ABG pH POC ABG pCO2 POC ABG pO2 ABG pO2 ABG HCO3 ABG O2 Saturation ABG Base Excess ABG Oxyhemoglobin ABG Sodium ABG Chloride ABG Glucose Oxyhemoglobin Carboxyhemoglobin Sodium Potassium Chloride Carbon Dioxide BUN Creatinine Glucose POC Glucose 198 H 134 H 107 H Hemoglobin A1c Magnesium Ferritin AST ALT Alkaline Phosphatase Lactate Dehydrogenase C-Reactive Protein Total Protein Albumin Arterial Blood Glucose Coronavirus (PCR) 08/07/21 08/07/21 08/08/21 16:26 21:15 04:51 WBC MCV MCH MCHC RDW Lymph % (Auto) [place] % (Auto) Eos % (Auto) Lymph # (Auto) [place] # (Auto) Eos # (Auto) Baso # (Auto) Seg Neutrophils % Seg Neuts % (Manual) Lymphocytes % (Manual) Seg Neutrophils # Seg Neutrophils # Man Lymphocytes # (Manual) D-Dimer ABG pH POC ABG pCO2 POC ABG pO2 ABG pO2 ABG HCO3 ABG O2 Saturation ABG Base Excess ABG Oxyhemoglobin ABG Sodium ABG Chloride ABG Glucose Oxyhemoglobin Carboxyhemoglobin Sodium Potassium Chloride 92.9 L Carbon Dioxide 39 H BUN Creatinine < 0.2 L Glucose 105 H POC Glucose 144 H 228 H Hemoglobin A1c Magnesium Ferritin AST ALT Alkaline Phosphatase Lactate Dehydrogenase C-Reactive Protein Total Protein Albumin Arterial Blood Glucose Coronavirus (PCR) 08/08/21 08/08/21 08/08/21 11:40 17:09 21:22 WBC MCV MCH MCHC RDW Lymph % (Auto) [place] % (Auto) Eos % (Auto) Lymph # (Auto) [place] # (Auto) Eos # (Auto) Baso # (Auto) Seg Neutrophils % Seg Neuts % (Manual) Lymphocytes % (Manual) Seg Neutrophils # Seg Neutrophils # Man Lymphocytes # (Manual) D-Dimer ABG pH POC ABG pCO2 POC ABG pO2 ABG pO2 ABG HCO3 ABG O2 Saturation ABG Base Excess ABG Oxyhemoglobin ABG Sodium ABG Chloride ABG Glucose Oxyhemoglobin Carboxyhemoglobin Sodium Potassium Chloride Carbon Dioxide BUN Creatinine Glucose POC Glucose 137 H 137 H 152 H Hemoglobin A1c Magnesium Ferritin AST ALT Alkaline Phosphatase Lactate Dehydrogenase C-Reactive Protein Total Protein Albumin Arterial Blood Glucose Coronavirus (PCR) 08/09/21 08/09/21 08/09/21 07:42 12:26 16:41 WBC MCV MCH MCHC RDW Lymph % (Auto) [place] % (Auto) Eos % (Auto) Lymph # (Auto) [place] # (Auto) Eos # (Auto) Baso # (Auto) Seg Neutrophils % Seg Neuts % (Manual) Lymphocytes % (Manual) Seg Neutrophils # Seg Neutrophils # Man Lymphocytes # (Manual) D-Dimer ABG pH POC ABG pCO2 POC ABG pO2 ABG pO2 ABG HCO3 ABG O2 Saturation ABG Base Excess ABG Oxyhemoglobin ABG Sodium ABG Chloride ABG Glucose Oxyhemoglobin Carboxyhemoglobin Sodium Potassium Chloride Carbon Dioxide BUN Creatinine Glucose POC Glucose 120 H 132 H 116 H Hemoglobin A1c Magnesium Ferritin AST ALT Alkaline Phosphatase Lactate Dehydrogenase C-Reactive Protein Total Protein Albumin Arterial Blood Glucose Coronavirus (PCR) 08/09/21 08/10/21 08/10/21 21:13 07:41 11:33 WBC MCV MCH MCHC RDW Lymph % (Auto) [place] % (Auto) Eos % (Auto) Lymph # (Auto) [place] # (Auto) Eos # (Auto) Baso # (Auto) Seg Neutrophils % Seg Neuts % (Manual) Lymphocytes % (Manual) Seg Neutrophils # Seg Neutrophils # Man Lymphocytes # (Manual) D-Dimer ABG pH POC ABG pCO2 POC ABG pO2 ABG pO2 ABG HCO3 ABG O2 Saturation ABG Base Excess ABG Oxyhemoglobin ABG Sodium ABG Chloride ABG Glucose Oxyhemoglobin Carboxyhemoglobin Sodium Potassium Chloride Carbon Dioxide BUN Creatinine Glucose POC Glucose 205 H 125 H 125 H Hemoglobin A1c Magnesium Ferritin AST ALT Alkaline Phosphatase Lactate Dehydrogenase C-Reactive Protein Total Protein Albumin Arterial Blood Glucose Coronavirus (PCR) 08/10/21 08/10/21 08/11/21 15:21 21:07 07:22 WBC MCV MCH MCHC RDW Lymph % (Auto) [place] % (Auto) Eos % (Auto) Lymph # (Auto) [place] # (Auto) Eos # (Auto) Baso # (Auto) Seg Neutrophils % Seg Neuts % (Manual) Lymphocytes % (Manual) Seg Neutrophils # Seg Neutrophils # Man Lymphocytes # (Manual) D-Dimer ABG pH POC ABG pCO2 POC ABG pO2 ABG pO2 ABG HCO3 ABG O2 Saturation ABG Base Excess ABG Oxyhemoglobin ABG Sodium ABG Chloride ABG Glucose Oxyhemoglobin Carboxyhemoglobin Sodium Potassium Chloride Carbon Dioxide BUN Creatinine Glucose POC Glucose 188 H 177 H 123 H Hemoglobin A1c Magnesium Ferritin AST ALT Alkaline Phosphatase Lactate Dehydrogenase C-Reactive Protein Total Protein Albumin Arterial Blood Glucose Coronavirus (PCR) 08/11/21 08/11/21 08/11/21 11:42 15:43 21:34 WBC MCV MCH MCHC RDW Lymph % (Auto) [place] % (Auto) Eos % (Auto) Lymph # (Auto) [place] # (Auto) Eos # (Auto) Baso # (Auto) Seg Neutrophils % Seg Neuts % (Manual) Lymphocytes % (Manual) Seg Neutrophils # Seg Neutrophils # Man Lymphocytes # (Manual) D-Dimer ABG pH POC ABG pCO2 POC ABG pO2 ABG pO2 ABG HCO3 ABG O2 Saturation ABG Base Excess ABG Oxyhemoglobin ABG Sodium ABG Chloride ABG Glucose Oxyhemoglobin Carboxyhemoglobin Sodium Potassium Chloride Carbon Dioxide BUN Creatinine Glucose POC Glucose 182 H 182 H 112 H Hemoglobin A1c Magnesium Ferritin AST ALT Alkaline Phosphatase Lactate Dehydrogenase C-Reactive Protein Total Protein Albumin Arterial Blood Glucose Coronavirus (PCR) 08/12/21 08/12/21 08/12/21 07:49 12:03 17:06 WBC MCV MCH MCHC RDW Lymph % (Auto) [place] % (Auto) Eos % (Auto) Lymph # (Auto) [place] # (Auto) Eos # (Auto) Baso # (Auto) Seg Neutrophils % Seg Neuts % (Manual) Lymphocytes % (Manual) Seg Neutrophils # Seg Neutrophils # Man Lymphocytes # (Manual) D-Dimer ABG pH POC ABG pCO2 POC ABG pO2 ABG pO2 ABG HCO3 ABG O2 Saturation ABG Base Excess ABG Oxyhemoglobin ABG Sodium ABG Chloride ABG Glucose Oxyhemoglobin Carboxyhemoglobin Sodium Potassium Chloride Carbon Dioxide BUN Creatinine Glucose POC Glucose 151 H 154 H 106 H Hemoglobin A1c Magnesium Ferritin AST ALT Alkaline Phosphatase Lactate Dehydrogenase C-Reactive Protein Total Protein Albumin Arterial Blood Glucose Coronavirus (PCR) 08/12/21 08/13/21 08/13/21 21:50 07:31 11:27 WBC MCV MCH MCHC RDW Lymph % (Auto) [place] % (Auto) Eos % (Auto) Lymph # (Auto) [place] # (Auto) Eos # (Auto) Baso # (Auto) Seg Neutrophils % Seg Neuts % (Manual) Lymphocytes % (Manual) Seg Neutrophils # Seg Neutrophils # Man Lymphocytes # (Manual) D-Dimer ABG pH POC ABG pCO2 POC ABG pO2 ABG pO2 ABG HCO3 ABG O2 Saturation ABG Base Excess ABG Oxyhemoglobin ABG Sodium ABG Chloride ABG Glucose Oxyhemoglobin Carboxyhemoglobin Sodium Potassium Chloride Carbon Dioxide BUN Creatinine Glucose POC Glucose 160 H 118 H 177 H Hemoglobin A1c Magnesium Ferritin AST ALT Alkaline Phosphatase Lactate Dehydrogenase C-Reactive Protein Total Protein Albumin Arterial Blood Glucose Coronavirus (PCR) 08/13/21 08/13/21 08/14/21 16:21 20:59 07:16 WBC MCV MCH MCHC RDW Lymph % (Auto) [place] % (Auto) Eos % (Auto) Lymph # (Auto) [place] # (Auto) Eos # (Auto) Baso # (Auto) Seg Neutrophils % Seg Neuts % (Manual) Lymphocytes % (Manual) Seg Neutrophils # Seg Neutrophils # Man Lymphocytes # (Manual) D-Dimer ABG pH POC ABG pCO2 POC ABG pO2 ABG pO2 ABG HCO3 ABG O2 Saturation ABG Base Excess ABG Oxyhemoglobin ABG Sodium ABG Chloride ABG Glucose Oxyhemoglobin Carboxyhemoglobin Sodium Potassium Chloride Carbon Dioxide BUN Creatinine Glucose POC Glucose 116 H 140 H 109 H Hemoglobin A1c Magnesium Ferritin AST ALT Alkaline Phosphatase Lactate Dehydrogenase C-Reactive Protein Total Protein Albumin Arterial Blood Glucose Coronavirus (PCR) 08/14/21 08/14/21 08/14/21 11:13 16:30 21:11 WBC MCV MCH MCHC RDW Lymph % (Auto) [place] % (Auto) Eos % (Auto) Lymph # (Auto) [place] # (Auto) Eos # (Auto) Baso # (Auto) Seg Neutrophils % Seg Neuts % (Manual) Lymphocytes % (Manual) Seg Neutrophils # Seg Neutrophils # Man Lymphocytes # (Manual) D-Dimer ABG pH POC ABG pCO2 POC ABG pO2 ABG pO2 ABG HCO3 ABG O2 Saturation ABG Base Excess ABG Oxyhemoglobin ABG Sodium ABG Chloride ABG Glucose Oxyhemoglobin Carboxyhemoglobin Sodium Potassium Chloride Carbon Dioxide BUN Creatinine Glucose POC Glucose 176 H 117 H 222 H Hemoglobin A1c Magnesium Ferritin AST ALT Alkaline Phosphatase Lactate Dehydrogenase C-Reactive Protein Total Protein Albumin Arterial Blood Glucose Coronavirus (PCR) 08/15/21 08/15/21 08/15/21 07:10 11:11 16:25 WBC MCV MCH MCHC RDW Lymph % (Auto) [place] % (Auto) Eos % (Auto) Lymph # (Auto) [place] # (Auto) Eos # (Auto) Baso # (Auto) Seg Neutrophils % Seg Neuts % (Manual) Lymphocytes % (Manual) Seg Neutrophils # Seg Neutrophils # Man Lymphocytes # (Manual) D-Dimer ABG pH POC ABG pCO2 POC ABG pO2 ABG pO2 ABG HCO3 ABG O2 Saturation ABG Base Excess ABG Oxyhemoglobin ABG Sodium ABG Chloride ABG Glucose Oxyhemoglobin Carboxyhemoglobin Sodium Potassium Chloride Carbon Dioxide BUN Creatinine Glucose POC Glucose 165 H 225 H 157 H Hemoglobin A1c Magnesium Ferritin AST ALT Alkaline Phosphatase Lactate Dehydrogenase C-Reactive Protein Total Protein Albumin Arterial Blood Glucose Coronavirus (PCR) 08/16/21 08/16/21 07:29 11:14 WBC MCV MCH MCHC RDW Lymph % (Auto) [place] % (Auto) Eos % (Auto) Lymph # (Auto) [place] # (Auto) Eos # (Auto) Baso # (Auto) Seg Neutrophils % Seg Neuts % (Manual) Lymphocytes % (Manual) Seg Neutrophils # Seg Neutrophils # Man Lymphocytes # (Manual) D-Dimer ABG pH POC ABG pCO2 POC ABG pO2 ABG pO2 ABG HCO3 ABG O2 Saturation ABG Base Excess ABG Oxyhemoglobin ABG Sodium ABG Chloride ABG Glucose Oxyhemoglobin Carboxyhemoglobin Sodium Potassium Chloride Carbon Dioxide BUN Creatinine Glucose POC Glucose 177 H 254 H Hemoglobin A1c Magnesium Ferritin AST ALT Alkaline Phosphatase Lactate Dehydrogenase C-Reactive Protein Total Protein Albumin Arterial Blood Glucose Coronavirus (PCR)
--- NOTE | 2021-08-16 16:15 | Progress Note ---
Assessment and Plan Assessment and plan: #Acute hypoxic/hypercapneic respiratory failure #Severe ARDS -stable -refusing BiPAP, currently on HFNC 30 -plan to maintain SpO2 >88% -s/p prednisone taper -encouraged patient to prone herself when she is awake -repeat CXR ordered -Pulmonology following, assistance appreciated #Metabolic alkalosis -stable #Heart failure with preserved ejection fraction -TTE: LVEF 55-60% with diastolic dysfunction -will continue to monitor for signs of fluid overload #COVID-19 infection -Continue Covid vitamins #Type 2 diabetes -continue Lantus 5 units daily and sliding scale insulin #Anxiety -Stable -continue xanax #DVT prophylaxis -Lovenox 40 daily #Deconditioning -Will benefit from SNF after prolonged hospital stay Resolved issues #Sepsis secondary to COVID-19 #Iatrogenic diarrhea #Hypomagnesemia #Hyponatremia #Protein calorie malnutrition #Dysuria #Hypokalemia #Possible UTI #Advanced care planning -Disease education conducted, care plan discussed, diagnoses discussed, prognosis discussed, and patient acknowledges understanding with care plan -Time: +30 minutes Disposition Plan: continue medical management Total Time Spent with Patient (Minutes): 30 minutes History Interval history: No acute events overnight Hospitalist Physical - Constitutional Vitals: Temp Pulse Resp BP Pulse Ox 99.1 F 112 H 42 H 112/58 99 08/16/21 12:00 08/16/21 15:00 08/16/21 15:00 08/16/21 15:00 08/16/21 15:00 General appearance: Present: no acute distress, well-nourished, other (Looks tired) - EENT Eyes: Present: PERRL, EOM intact ENT: hearing intact, clear oral mucosa, dentition normal - Neck Neck: Present: supple, normal ROM - Respiratory Respiratory effort: normal Respiratory: bilateral: diminished (On high flow nasal cannula) - Cardiovascular Rhythm: regular Heart Sounds: Present: S1 & S2 - Extremities Extremities: no ischemia, pulses intact, pulses symmetrical, No edema, normal temperature, normal color Peripheral Pulses: within normal limits - Abdominal General gastrointestinal: soft, non-tender, non-distended, normal bowel sounds - Integumentary Integumentary: Present: clear, warm, dry - Psychiatric Psychiatric: appropriate mood/affect, memory intact, cooperative - Neurologic Neurologic: CNII-XII intact, moves all extremities - Allied Health Allied health notes reviewed: nursing Results - Labs CBC & Chem 7: 07/23/21 04:35 08/08/21 04:51 Labs: Laboratory Last Values WBC 10.8 K/mm3 (4.5-11.0) 07/23/21 04:35 RBC 3.84 M/mm3 (3.65-5.03) 07/23/21 04:35 Hgb 12.1 gm/dl (10.1-14.3) 07/23/21 04:35 Hct 37.6 % (30.3-42.9) 07/23/21 04:35 MCV 98 fl (79-97) H 07/23/21 04:35 MCH 32 pg (28-32) 07/23/21 04:35 MCHC 32 % (30-34) 07/23/21 04:35 RDW 16.2 % (13.2-15.2) H 07/23/21 04:35 Plt Count 367 K/mm3 (140-440) 07/23/21 04:35 Lymph % (Auto) 7.9 % (13.4-35.0) L 07/23/21 04:35 [place] % (Auto) 5.6 % (0.0-7.3) 07/23/21 04:35 Eos % (Auto) 0.8 % (0.0-4.3) 07/23/21 04:35 Baso % (Auto) 0.4 % (0.0-1.8) 07/23/21 04:35 Lymph # (Auto) 0.9 K/mm3 (1.2-5.4) L 07/23/21 04:35 [place] # (Auto) 0.6 K/mm3 (0.0-0.8) 07/23/21 04:35 Eos # (Auto) 0.1 K/mm3 (0.0-0.4) 07/23/21 04:35 Baso # (Auto) 0.0 K/mm3 (0.0-0.1) 07/23/21 04:35 Add Manual Diff Complete 07/09/21 04:45 Total Counted 100 07/09/21 04:45 Seg Neutrophils % 85.3 % (40.0-70.0) H 07/23/21 04:35 Seg Neuts % (Manual) 82.0 % (40.0-70.0) H 07/09/21 04:45 Band Neutrophils % 1.0 % 05/12/21 04:05 Lymphocytes % (Manual) 13.0 % (13.4-35.0) L 07/09/21 04:45 Monocytes % (Manual) 3.0 % (0.0-7.3) 07/09/21 04:45 Eosinophils % (Manual) 2.0 % (0.0-4.3) 07/09/21 04:45 Nucleated RBC % Not Reportable 07/09/21 04:45 Seg Neutrophils # 9.2 K/mm3 (1.8-7.7) H 07/23/21 04:35 Seg Neutrophils # Man 7.8 K/mm3 (1.8-7.7) H 07/09/21 04:45 Band Neutrophils # 0.0 K/mm3 07/09/21 04:45 Lymphocytes # (Manual) 1.2 K/mm3 (1.2-5.4) 07/09/21 04:45 Abs React Lymphs (Man) 0.0 K/mm3 07/09/21 04:45 Monocytes # (Manual) 0.3 K/mm3 (0.0-0.8) 07/09/21 04:45 Eosinophils # (Manual) 0.2 K/mm3 (0.0-0.4) 07/09/21 04:45 Basophils # (Manual) 0.0 K/mm3 (0.0-0.1) 07/09/21 04:45 Metamyelocytes # 0.0 K/mm3 07/09/21 04:45 Myelocytes # 0.0 K/mm3 07/09/21 04:45 Promyelocytes # 0.0 K/mm3 07/09/21 04:45 Blast Cells # 0.0 K/mm3 07/09/21 04:45 WBC Morphology Not Reportable 07/09/21 04:45 Hypersegmented Neuts Not Reportable 07/09/21 04:45 Hyposegmented Neuts Not Reportable 07/09/21 04:45 Hypogranular Neuts Not Reportable 07/09/21 04:45 Smudge Cells Not Reportable 07/09/21 04:45 Toxic Granulation Not Reportable 07/09/21 04:45 Toxic Vacuolation Not Reportable 07/09/21 04:45 Dohle Bodies Not Reportable 07/09/21 04:45 Pelger-Huet Anomaly Not Reportable 07/09/21 04:45 Janelle Rods Not Reportable 07/09/21 04:45 Platelet Estimate Consistent w auto 07/09/21 04:45 Clumped Platelets Not Reportable 07/09/21 04:45 Plt Clumps, EDTA Not Reportable 07/09/21 04:45 Large Platelets Not Reportable 07/09/21 04:45 Giant Platelets Rare 07/09/21 04:45 Platelet Satelliting Not Reportable 07/09/21 04:45 Plt Morphology Comment Not Reportable 07/09/21 04:45 RBC Morphology Not Reportable 07/09/21 04:45 Dimorphic RBCs Not Reportable 07/09/21 04:45 Polychromasia Not Reportable 07/09/21 04:45 Hypochromasia Few 07/09/21 04:45 Poikilocytosis Not Reportable 07/09/21 04:45 Anisocytosis Not Reportable 07/09/21 04:45 Microcytosis Not Reportable 07/09/21 04:45 Macrocytosis Not Reportable 07/09/21 04:45 Spherocytes Not Reportable 07/09/21 04:45 Pappenheimer Bodies Not Reportable 07/09/21 04:45 Sickle Cells Not Reportable 07/09/21 04:45 Target Cells Not Reportable 07/09/21 04:45 Tear Drop Cells Not Reportable 07/09/21 04:45 Ovalocytes Not Reportable 07/09/21 04:45 Stomatocytes 1+ 07/09/21 04:45 Helmet Cells Not Reportable 07/09/21 04:45 Ahu[place] Bodies Not Reportable 07/09/21 04:45 [place] Rings Not Reportable 07/09/21 04:45 [place] Cells Not Reportable 07/09/21 04:45 Bite Cells Not Reportable 07/09/21 04:45 Crenated Cell Not Reportable 07/09/21 04:45 Elliptocytes Not Reportable 07/09/21 04:45 Acanthocytes (Spur) Not Reportable 07/09/21 04:45 Rouleaux Not Reportable 07/09/21 04:45 Hemoglobin C Crystals Not Reportable 07/09/21 04:45 Schistocytes Not Reportable 07/09/21 04:45 Malaria parasites Not Reportable 07/09/21 04:45 Justin Bodies Not Reportable 07/09/21 04:45 Hem Pathologist Commnt No 07/09/21 04:45 D-Dimer 638.35 ng/mlDDU (0-234) H 07/09/21 04:45 ABG pH 7.417 (7.320-7.450) 07/23/21 18:11 POC ABG pCO2 78.3 mmHg (32.0-48.0) H 07/23/21 18:11 ABG pCO2 85.7 mm Hg 07/22/21 12:05 POC ABG pO2 80.7 mmHg (83-108) L 07/23/21 18:11 ABG pO2 66.1 mm Hg (80.0-90.0) L 07/22/21 12:05 POC ABG HCO3 49.3 07/23/21 18:11 ABG HCO3 45.0 mmol/L (20.0-26.0) H 07/22/21 12:05 ABG O2 Saturation 96.7 (0-100) 07/23/21 18:11 ABG O2 Content 16.8 (0.0-44) 07/22/21 12:05 POC ABG Base Excess 20.5 07/23/21 18:11 ABG Base Excess 15.2 mmol/L (-2.0-3.0) H 07/22/21 12:05 ABG Hemoglobin 12.6 (12.0-17.5) 07/23/21 18:11 ABG Oxyhemoglobin 95.7 (94-98) 07/23/21 18:11 ABG Carboxyhemoglobin 1.9 % (0.0-5.0) 07/22/21 12:05 ABG Methemoglobin 0.3 (0.0-1.5) 07/23/21 18:11 ABG Sodium 134.9 mmol/L (136.0-145.0) L 07/23/21 18:11 ABG Potassium 3.9 mmol/L (3.40-4.50) 07/23/21 18:11 ABG Chloride 89.0 mmol/L (98-107) L 07/23/21 18:11 ABG Glucose 200 mg/dL (65-95) H 07/23/21 18:11 Oxyhemoglobin 91.9 % (95.0-99.0) L 07/22/21 12:05 Carboxyhemoglobin 0.7 (0.5-1.5) 07/23/21 18:11 FiO2 100 % 07/22/21 12:05 FiO2 % 100.0 07/23/21 18:11 Sodium 140 mmol/L (137-145) 08/08/21 04:51 Potassium 4.1 mmol/L (3.6-5.0) 08/08/21 04:51 Chloride 92.9 mmol/L (98-107) L 08/08/21 04:51 Carbon Dioxide 39 mmol/L (22-30) H 08/08/21 04:51 Anion Gap 12 mmol/L 08/08/21 04:51 BUN 9 mg/dL (7-17) 08/08/21 04:51 Creatinine < 0.2 mg/dL (0.6-1.2) L 08/08/21 04:51 Estimated GFR > 60 ml/min 08/08/21 04:51 BUN/Creatinine Ratio 45 % 08/08/21 04:51 Glucose 105 mg/dL (65-100) H 08/08/21 04:51 POC Glucose 254 mg/dL (70-105) H 08/16/21 11:14 Hemoglobin A1c 8.5 % (4-6) H 04/18/21 07:36 Calcium 9.4 mg/dL (8.4-10.2) 08/08/21 04:51 Phosphorus 3.70 mg/dL (2.5-4.5) 07/23/21 04:35 Magnesium 2.10 mg/dL (1.7-2.3) 07/23/21 04:35 Ferritin 155.9 ng/mL (10.0-200.0) 07/09/21 04:45 Total Bilirubin < 0.20 mg/dL (0.1-1.2) 07/26/21 09:56 AST 23 units/L (5-40) 07/26/21 09:56 ALT 25 units/L (7-56) 07/26/21 09:56 Alkaline Phosphatase 69 units/L (35-129) 07/26/21 09:56 Lactate Dehydrogenase 475 units/L (91-180) H 06/05/21 05:26 C-Reactive Protein 4.30 mg/dL (0.00-1.30) H 07/09/21 04:45 NT-Pro-B Natriuret Pep 59.45 pg/mL (0-450) 07/07/21 13:40 Total Protein 8.1 g/dL (6.3-8.2) 07/26/21 09:56 Albumin 3.2 g/dL (3.9-5) L 07/26/21 09:56 Albumin/Globulin Ratio 0.7 % 07/26/21 09:56 Triglycerides < 9 mg/dL (2-149) 05/03/21 04:30 Procalcitonin < 0.05 ng/mL (<0.15) 05/23/21 09:50 Arterial Blood Glucose 200 mg/dL (65-95) H 07/23/21 18:11 Arterial Blood Ionized Calcium 4.6 mg/dL (4.6-5.3) 07/23/21 18:11 Coronavirus (PCR) Negative (Negative) 07/25/21 Unknown Amos/IV: Voiding Method External Female Catheter Active Medications - Current Medications Current Medications: Generic Name Dose Route Start Last Admin Trade Name Freq PRN Reason Stop Dose Admin Acetaminophen 650 mg 07/02/21 17:48 08/16/21 09:50 Acetaminophen 325 Mg Tab PO 650 mg Q4H PRN Administration Pain, Mild (1-3) Albuterol 2.5 mg 04/16/21 13:39 04/21/21 20:39 Albuterol 2.5 Mg/3 Ml Nebu IH 2.5 mg Q4HRT PRN Administration Shortness Of Breath Alprazolam 1 mg 08/12/21 11:00 08/16/21 09:11 Alprazolam 1 Mg Tab PO 1 mg BID TUTU Administration Calcium Carbonate/Glycine 500 mg 07/24/21 10:43 08/14/21 22:24 Calcium Carbonate 500 Mg Tab Chew PO 500 mg BID PRN Administration reflux Cholecalciferol 1,000 unit 04/17/21 10:00 08/16/21 09:11 Cholecalciferol (Vit D3) 1000 Unit (25 Mcg) Tab PO 1,000 unit QDAY TUTU Administration Enoxaparin Sodium 40 mg 05/19/21 22:00 12/02/21 22:03 Enoxaparin 40 Mg/0.4 Ml Inj SUB-Q 40 mg QDAY@2200 TUTU Administration Protocol Insulin Glargine 5 units 07/25/21 10:00 08/16/21 09:11 Insulin Glargine 100 Units/Ml SUB-Q 5 units DAILY TUTU Administration Insulin Human Lispro 0 unit 05/18/21 12:00 08/16/21 11:51 Insulin Lispro 100 Unit/Ml SUB-Q 6 unit ACHS TUTU Administration Protocol Methylprednisolone Sodium Succinate 125 mg 08/14/21 15:00 08/16/21 14:03 Methylprednisolone Sod Succinate 125 Mg/2 Ml Inj IV 125 mg Q8HR TUTU Administration Ondansetron HCl 4 mg 04/16/21 14:00 05/30/21 10:07 Ondansetron 4 Mg/2 Ml Inj IV 4 mg Q8H PRN Administration Nausea And Vomiting Polyethylene Glycol 17 gm 07/16/21 20:00 08/11/21 11:18 Polyethylene Glycol 3350 17 Gm Powder PO 17 gm QDAY PRN Administration Constipation Sodium Chloride 10 ml 04/16/21 13:39 08/14/21 22:28 Sodium Chloride 0.9% 10 Ml Flush Syringe IV 10 ml PRN PRN Administration LINE FLUSH Nutrition/Malnutrition Assess - Dietary Evaluation Nutrition/Malnutrition Findings: Nutrition Notes Start: 04/23/21 07:41 Freq: Status: Active Protocol: Document 08/09/21 17:26 SAQIB (Rec: 08/09/21 17:30 [id number]) Nutrition Notes Initial or Follow up Brief Note Subjective/Other Information RD brief note to set next F/U on 09/12 Nutrition Intervention Follow-Up By: 09/12/21 Additional Comments Continue monitoring food tolerance, %PO intake of meals , Hydration, and BM.
[2021-08-16] MEDS: ENOXAPARIN 40 MG/0.4 ML INJ SUB-Q SCH (21:22)
[2021-08-17] MEDS: methylPREDNISolone Sod Succinate 125 MG/2 ML INJ IV SCH ×3 (05:03→22:07)
[2021-08-17] MEDS: INSULIN LISPRO 100 UNIT/ML SUB-Q SCH ×4 (08:29→22:14)
[2021-08-17] MEDS: INSULIN GLARGINE 100 UNITS/ML SUB-Q SCH (11:00)
[2021-08-17] MEDS: ALPRAZolam 1 MG TAB PO SCH ×2 (11:00→22:07)
[2021-08-17] MEDS: CHOLECALCIFEROL (VIT D3) 1000 UNIT (25 mcg) TAB PO SCH (11:00)
--- NOTE | 2021-08-17 13:35 | Progress Note ---
Assessment and Plan Assessment and plan: Acute hypoxic/hypercapneic respiratory failure #Severe ARDS. Suspected possible post Covid pneumonia lung fibrosis. -Unchanged. -refusing BiPAP, currently on HFNC -plan to maintain SpO2 >88% -Had previous treatments with steroid. Was resumed on IV Solu-Medrol on 08/16/2021. -Pulmonology following, assistance appreciated #Metabolic alkalosis Continue monitoring #Heart failure with preserved ejection fraction -TTE: LVEF 55-60% with diastolic dysfunction -will continue to monitor for signs of fluid overload. -On intermittent diuretics. #COVID-19 infection -Has completed treatment. #Type 2 diabetes -Uncontrolled most likely due to steroid Increase Lantus to 20 SQ daily. Continue sliding scale insulin. #Anxiety -Stable -continue xanax #DVT prophylaxis -Lovenox 40 daily #Deconditioning -Will benefit from SNF after prolonged hospital stay Resolved issues #Sepsis secondary to COVID-19 #Iatrogenic diarrhea #Hypomagnesemia #Hyponatremia #Protein calorie malnutrition #Dysuria #Hypokalemia #Possible UTI #Advanced care planning -Disease education conducted, care plan discussed, diagnoses discussed, prognosis discussed, and patient acknowledges understanding with care plan Disposition Plan: continue medical management History Interval history: No new complaints Still on high flow nasal cannula. Hospitalist Physical - Constitutional Vitals: Temp Pulse Resp BP Pulse Ox 98.3 F 99 H 26 H 125/73 96 08/17/21 12:00 08/17/21 06:00 08/17/21 06:00 08/17/21 06:00 08/17/21 09:16 General appearance: Present: no acute distress, well-nourished, other (Looks tired) - EENT Eyes: Present: PERRL, EOM intact ENT: hearing intact, clear oral mucosa - Neck Neck: Present: supple, normal ROM - Respiratory Respiratory effort: normal, other (On high flow nasal cannula.) - Cardiovascular Rhythm: regular Heart Sounds: Present: S1 & S2 - Extremities Extremities: No edema, Full ROM - Abdominal General gastrointestinal: soft, non-tender, non-distended, normal bowel sounds - Integumentary Integumentary: Present: warm, dry - Psychiatric Psychiatric: appropriate mood/affect - Neurologic Neurologic: moves all extremities Results - Labs CBC & Chem 7: 07/23/21 04:35 08/08/21 04:51 Labs: Laboratory Last Values WBC 10.8 K/mm3 (4.5-11.0) 07/23/21 04:35 RBC 3.84 M/mm3 (3.65-5.03) 07/23/21 04:35 Hgb 12.1 gm/dl (10.1-14.3) 07/23/21 04:35 Hct 37.6 % (30.3-42.9) 07/23/21 04:35 MCV 98 fl (79-97) H 07/23/21 04:35 MCH 32 pg (28-32) 07/23/21 04:35 MCHC 32 % (30-34) 07/23/21 04:35 RDW 16.2 % (13.2-15.2) H 07/23/21 04:35 Plt Count 367 K/mm3 (140-440) 07/23/21 04:35 Lymph % (Auto) 7.9 % (13.4-35.0) L 07/23/21 04:35 Floyd % (Auto) 5.6 % (0.0-7.3) 07/23/21 04:35 Eos % (Auto) 0.8 % (0.0-4.3) 07/23/21 04:35 Baso % (Auto) 0.4 % (0.0-1.8) 07/23/21 04:35 Lymph # (Auto) 0.9 K/mm3 (1.2-5.4) L 07/23/21 04:35 Floyd # (Auto) 0.6 K/mm3 (0.0-0.8) 07/23/21 04:35 Eos # (Auto) 0.1 K/mm3 (0.0-0.4) 07/23/21 04:35 Baso # (Auto) 0.0 K/mm3 (0.0-0.1) 07/23/21 04:35 Add Manual Diff Complete 07/09/21 04:45 Total Counted 100 07/09/21 04:45 Seg Neutrophils % 85.3 % (40.0-70.0) H 07/23/21 04:35 Seg Neuts % (Manual) 82.0 % (40.0-70.0) H 07/09/21 04:45 Band Neutrophils % 1.0 % 05/12/21 04:05 Lymphocytes % (Manual) 13.0 % (13.4-35.0) L 07/09/21 04:45 Monocytes % (Manual) 3.0 % (0.0-7.3) 07/09/21 04:45 Eosinophils % (Manual) 2.0 % (0.0-4.3) 07/09/21 04:45 Nucleated RBC % Not Reportable 07/09/21 04:45 Seg Neutrophils # 9.2 K/mm3 (1.8-7.7) H 07/23/21 04:35 Seg Neutrophils # Man 7.8 K/mm3 (1.8-7.7) H 07/09/21 04:45 Band Neutrophils # 0.0 K/mm3 07/09/21 04:45 Lymphocytes # (Manual) 1.2 K/mm3 (1.2-5.4) 07/09/21 04:45 Abs React Lymphs (Man) 0.0 K/mm3 07/09/21 04:45 Monocytes # (Manual) 0.3 K/mm3 (0.0-0.8) 07/09/21 04:45 Eosinophils # (Manual) 0.2 K/mm3 (0.0-0.4) 07/09/21 04:45 Basophils # (Manual) 0.0 K/mm3 (0.0-0.1) 07/09/21 04:45 Metamyelocytes # 0.0 K/mm3 07/09/21 04:45 Myelocytes # 0.0 K/mm3 07/09/21 04:45 Promyelocytes # 0.0 K/mm3 07/09/21 04:45 Blast Cells # 0.0 K/mm3 07/09/21 04:45 WBC Morphology Not Reportable 07/09/21 04:45 Hypersegmented Neuts Not Reportable 07/09/21 04:45 Hyposegmented Neuts Not Reportable 07/09/21 04:45 Hypogranular Neuts Not Reportable 07/09/21 04:45 Smudge Cells Not Reportable 07/09/21 04:45 Toxic Granulation Not Reportable 07/09/21 04:45 Toxic Vacuolation Not Reportable 07/09/21 04:45 Dohle Bodies Not Reportable 07/09/21 04:45 Pelger-Huet Anomaly Not Reportable 07/09/21 04:45 Janelle Rods Not Reportable 07/09/21 04:45 Platelet Estimate Consistent w auto 07/09/21 04:45 Clumped Platelets Not Reportable 07/09/21 04:45 Plt Clumps, EDTA Not Reportable 07/09/21 04:45 Large Platelets Not Reportable 07/09/21 04:45 Giant Platelets Rare 07/09/21 04:45 Platelet Satelliting Not Reportable 07/09/21 04:45 Plt Morphology Comment Not Reportable 07/09/21 04:45 RBC Morphology Not Reportable 07/09/21 04:45 Dimorphic RBCs Not Reportable 07/09/21 04:45 Polychromasia Not Reportable 07/09/21 04:45 Hypochromasia Few 07/09/21 04:45 Poikilocytosis Not Reportable 07/09/21 04:45 Anisocytosis Not Reportable 07/09/21 04:45 Microcytosis Not Reportable 07/09/21 04:45 Macrocytosis Not Reportable 07/09/21 04:45 Spherocytes Not Reportable 07/09/21 04:45 Pappenheimer Bodies Not Reportable 07/09/21 04:45 Sickle Cells Not Reportable 07/09/21 04:45 Target Cells Not Reportable 07/09/21 04:45 Tear Drop Cells Not Reportable 07/09/21 04:45 Ovalocytes Not Reportable 07/09/21 04:45 Stomatocytes 1+ 07/09/21 04:45 Helmet Cells Not Reportable 07/09/21 04:45 [place] Bodies Not Reportable 07/09/21 04:45 [place] Rings Not Reportable 07/09/21 04:45 Crow Cells Not Reportable 07/09/21 04:45 Bite Cells Not Reportable 07/09/21 04:45 Crenated Cell Not Reportable 07/09/21 04:45 Elliptocytes Not Reportable 07/09/21 04:45 Acanthocytes (Spur) Not Reportable 07/09/21 04:45 Rouleaux Not Reportable 07/09/21 04:45 Hemoglobin C Crystals Not Reportable 07/09/21 04:45 Schistocytes Not Reportable 07/09/21 04:45 Malaria parasites Not Reportable 07/09/21 04:45 Justin Bodies Not Reportable 07/09/21 04:45 Hem Pathologist Commnt No 07/09/21 04:45 D-Dimer 638.35 ng/mlDDU (0-234) H 07/09/21 04:45 ABG pH 7.417 (7.320-7.450) 07/23/21 18:11 POC ABG pCO2 78.3 mmHg (32.0-48.0) H 07/23/21 18:11 ABG pCO2 85.7 mm Hg 07/22/21 12:05 POC ABG pO2 80.7 mmHg (83-108) L 07/23/21 18:11 ABG pO2 66.1 mm Hg (80.0-90.0) L 07/22/21 12:05 POC ABG HCO3 49.3 07/23/21 18:11 ABG HCO3 45.0 mmol/L (20.0-26.0) H 07/22/21 12:05 ABG O2 Saturation 96.7 (0-100) 07/23/21 18:11 ABG O2 Content 16.8 (0.0-44) 07/22/21 12:05 POC ABG Base Excess 20.5 07/23/21 18:11 ABG Base Excess 15.2 mmol/L (-2.0-3.0) H 07/22/21 12:05 ABG Hemoglobin 12.6 (12.0-17.5) 07/23/21 18:11 ABG Oxyhemoglobin 95.7 (94-98) 07/23/21 18:11 ABG Carboxyhemoglobin 1.9 % (0.0-5.0) 07/22/21 12:05 ABG Methemoglobin 0.3 (0.0-1.5) 07/23/21 18:11 ABG Sodium 134.9 mmol/L (136.0-145.0) L 07/23/21 18:11 ABG Potassium 3.9 mmol/L (3.40-4.50) 07/23/21 18:11 ABG Chloride 89.0 mmol/L (98-107) L 07/23/21 18:11 ABG Glucose 200 mg/dL (65-95) H 07/23/21 18:11 Oxyhemoglobin 91.9 % (95.0-99.0) L 07/22/21 12:05 Carboxyhemoglobin 0.7 (0.5-1.5) 07/23/21 18:11 FiO2 100 % 07/22/21 12:05 FiO2 % 100.0 07/23/21 18:11 Sodium 140 mmol/L (137-145) 08/08/21 04:51 Potassium 4.1 mmol/L (3.6-5.0) 08/08/21 04:51 Chloride 92.9 mmol/L (98-107) L 08/08/21 04:51 Carbon Dioxide 39 mmol/L (22-30) H 08/08/21 04:51 Anion Gap 12 mmol/L 08/08/21 04:51 BUN 9 mg/dL (7-17) 08/08/21 04:51 Creatinine < 0.2 mg/dL (0.6-1.2) L 08/08/21 04:51 Estimated GFR > 60 ml/min 08/08/21 04:51 BUN/Creatinine Ratio 45 % 08/08/21 04:51 Glucose 105 mg/dL (65-100) H 08/08/21 04:51 POC Glucose 236 mg/dL (70-105) H 08/17/21 12:18 Hemoglobin A1c 8.5 % (4-6) H 04/18/21 07:36 Calcium 9.4 mg/dL (8.4-10.2) 08/08/21 04:51 Phosphorus 3.70 mg/dL (2.5-4.5) 07/23/21 04:35 Magnesium 2.10 mg/dL (1.7-2.3) 07/23/21 04:35 Ferritin 155.9 ng/mL (10.0-200.0) 07/09/21 04:45 Total Bilirubin < 0.20 mg/dL (0.1-1.2) 07/26/21 09:56 AST 23 units/L (5-40) 07/26/21 09:56 ALT 25 units/L (7-56) 07/26/21 09:56 Alkaline Phosphatase 69 units/L (35-129) 07/26/21 09:56 Lactate Dehydrogenase 475 units/L (91-180) H 06/05/21 05:26 C-Reactive Protein 4.30 mg/dL (0.00-1.30) H 07/09/21 04:45 NT-Pro-B Natriuret Pep 59.45 pg/mL (0-450) 07/07/21 13:40 Total Protein 8.1 g/dL (6.3-8.2) 07/26/21 09:56 Albumin 3.2 g/dL (3.9-5) L 07/26/21 09:56 Albumin/Globulin Ratio 0.7 % 07/26/21 09:56 Triglycerides < 9 mg/dL (2-149) 05/03/21 04:30 Procalcitonin < 0.05 ng/mL (<0.15) 05/23/21 09:50 Arterial Blood Glucose 200 mg/dL (65-95) H 07/23/21 18:11 Arterial Blood Ionized Calcium 4.6 mg/dL (4.6-5.3) 07/23/21 18:11 Coronavirus (PCR) Negative (Negative) 07/25/21 Unknown Amos/IV: Voiding Method External Female Catheter Active Medications - Current Medications Current Medications: Generic Name Dose Route Start Last Admin Trade Name Freq PRN Reason Stop Dose Admin Acetaminophen 650 mg 07/02/21 17:48 08/16/21 09:50 Acetaminophen 325 Mg Tab PO 650 mg Q4H PRN Administration Pain, Mild (1-3) Albuterol 2.5 mg 04/16/21 13:39 04/21/21 20:39 Albuterol 2.5 Mg/3 Ml Nebu IH 2.5 mg Q4HRT PRN Administration Shortness Of Breath Alprazolam 1 mg 08/12/21 11:00 08/17/21 11:00 Alprazolam 1 Mg Tab PO 1 mg BID TUTU Administration Calcium Carbonate/Glycine 500 mg 07/24/21 10:43 08/14/21 22:24 Calcium Carbonate 500 Mg Tab Chew PO 500 mg BID PRN Administration reflux Cholecalciferol 1,000 unit 04/17/21 10:00 08/17/21 11:00 Cholecalciferol (Vit D3) 1000 Unit (25 Mcg) Tab PO 1,000 unit QDAY TUTU Administration Enoxaparin Sodium 40 mg 05/19/21 22:00 08/16/21 21:22 Enoxaparin 40 Mg/0.4 Ml Inj SUB-Q 40 mg QDAY@2200 TUTU Administration Protocol Insulin Glargine 5 units 07/25/21 10:00 08/17/21 11:00 Insulin Glargine 100 Units/Ml SUB-Q 5 units DAILY TUTU Administration Insulin Human Lispro 0 unit 05/18/21 12:00 08/17/21 12:30 Insulin Lispro 100 Unit/Ml SUB-Q 4 unit ACHS TUTU Administration Protocol Methylprednisolone Sodium Succinate 125 mg 08/14/21 15:00 08/17/21 13:23 Methylprednisolone Sod Succinate 125 Mg/2 Ml Inj IV 125 mg Q8HR TUTU Administration Ondansetron HCl 4 mg 04/16/21 14:00 05/30/21 10:07 Ondansetron 4 Mg/2 Ml Inj IV 4 mg Q8H PRN Administration Nausea And Vomiting Polyethylene Glycol 17 gm 07/16/21 20:00 08/11/21 11:18 Polyethylene Glycol 3350 17 Gm Powder PO 17 gm QDAY PRN Administration Constipation Sodium Chloride 10 ml 04/16/21 13:39 08/14/21 22:28 Sodium Chloride 0.9% 10 Ml Flush Syringe IV 10 ml PRN PRN Administration LINE FLUSH Nutrition/Malnutrition Assess - Dietary Evaluation Nutrition/Malnutrition Findings: Nutrition Notes Start: 04/23/21 07:41 Freq: Status: Active Protocol: Document 08/09/21 17:26 SAQIB (Rec: 08/09/21 17:30 [id number] [id number]) Nutrition Notes Initial or Follow up Brief Note Subjective/Other Information RD brief note to set next F/U on 09/12 Nutrition Intervention Follow-Up By: 09/12/21 Additional Comments Continue monitoring food tolerance, %PO intake of meals , Hydration, and BM.
[2021-08-17] MEDS: ENOXAPARIN 40 MG/0.4 ML INJ SUB-Q SCH (22:08)
[2021-08-17] MEDS: ACETAMINOPHEN 325 MG TAB PO PRN (22:08)
--- NOTE | 2021-08-18 02:43 | Progress Note ---
Assessment and Plan 50 y/o female with acute respiratory failure secondary to COVID19 pneumonia. 08/18/21: Will continue steroids at current dosing as I believe they are helping. IMS managing blood sugars. I notified RT but I dropped FiO2 down to 55% while patient was sleeping. Will continue to follow. CM still working with hospice to get home but has to meet certain criteria on HFNC and she is not there yet. 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 Will continue solumedrol 126q8 and wean slowly over time. Discussed with pharmacy. CM working on possible placement with hospice company once she reaches a certain goal of HFNC. Will continue to monitor. 08/14/21: wean HFNC as tolerated. 08/12/21: Continue to attempt to wean HFNC. No other therapies available for this at present. Will check CXR today. 08/07/21: Constant struggle with Ms. Ren, on and off bipap. Good and bad days. She has had all therapy. Anxiety does play a huge roll but she truly desats. Continue NIV at night and PRN during the day. Wean HFNC as tolerated for sats >88%. May consider another trial of steroids when I come back. My partner is rounding the next 4 days. 08/05/21: I dropped FiO2 to 65%. Continue to wean for sats >88%. 08/03/21: COntinue supportive measures. Thank you for documenting refusal of NIV at night. Will attempt to speak with patient about anxiety and why she doesn't want to wear the NIV via the language line. 08/02/21: Continue supportive care. pLaced new order for NIV at night. Please document if patient refuses 07/31/21: COntinue to wean FiO2 as tolerated. NIV at night. 07/30/21: Bipap QHS. Please document if patient is refusing this at night. Per nurse she has refused but RT documentation reflects that it was PRN and not needed. Prognosis is still guarded. 07/29/21: Continue to attempt to wean FiO2. Given fluctuations in oxygen requirements, ok with keeping in IMCU. consider using bipap therapy at night if patient will allow. Prognosis still remains guarded. Patient has been here 104 days. 07/21/21: Wean FiO2 as tolerated. Patient has never proned the entire 96 days she has been here. Will continue bipap at night. Hold on lasix again today. Prognosis remains guarded. Has finished steroids and all other experimental COVID drugs with minimal to no improvement. 07/20/21: Give patient a break off of bipap and attempt high flow nasal cannula today. Will feed. Suggest keeping bipap therapy at night. Monitor fluid balance and BP. May need more lasix. 07/19/21: This was not related to stopping steroids as hemodynamically she is stable. Her sats is very good on 90%, I dropped to 85 and will continue to wean. She speaks no occitan and is very anxious. This adds to her work of breathing. COntinue to wean FiO2 as tolerated. Will give periodic breaks on bipap therapy. Guarded prognosis. 07/17/21: will stop steroids today. Hold on lasix given marginal blood pressure. Guarded prognosis. 07/15/21: Lasix today. Positive fluid balance all weekend based on I/O. Prone. Wean for sats >88% 07/12/21: Gave lasix 40mg IV again this am. Per charting yesterday was the first net negative day. Suggest PRN diuresis over the weekend as well. My partner is rounding but will likely see as needed. Continue to wean for sats >88% 07/11/21: Lasix 40mg IV this am. Attempt to prone if able. Attempt to achieve daily net negative state. Wean for sats >88%. Guarded prognosis. Will change prednisone to 5mg daily starting tomorrow. 07/09/21: Echo shows diastolic dysfunction. Will given an additional 40 of IV lasix today. Monitor daily and wean aggressively for sats >88% 07/08/21: Worsening CXR, Gave lasix yesterday and will give again today. Suggest checking echo, ekg. Prognosis is poor now with this change. We have seen COVID cause CAD with MD. 07/05/21: Will monitor over the weekend. Worst case scenario, may need to go back up to Prednisone 20 at least. Prone if able. Unsure why all of sudden oxygen requirement increasing. Will repeat CXR. 07/03/21: Down to 10 of prednisone. Will keep through the weekend and then drop to 5 on Thursday. PT/OT assessment if not done. Suggest maybe weaning flow now given FiO2 down to 50%. Prognosis is still guarded. 07/01/21: Will drop steroids to 10mg daily starting tomorrow. Wean for sats >88%. Prone. PT/OT should be seeing now that oxygen requirement is down more. 06/28/21: Continue to wean as tolerated. Will drop steroids down even further next week. Will see PRN over the weekend. 06/26/21: Will drop steroids down to 20 starting tomorrow. Prone. Continue to wean as tolerated. 06/24/21: Continue Pred, will drop to 20 daily tomorrow. Prone if able. Hopeful they can wean FiO2 more. May need to consider increasing flow for a while. 06/21/21: Continue pred at 40, will decrease likely Thursday/Thursday to 20 daily. Prone if able. Continue to wean as tolerated. Prognosis still remains guarded. 06/20/21: Will drop steroids down to 40 today. Proning. Continue to wean FiO2. 06/18/21: Wean Fio2 for sats >88%. Please encourage proning. Drop steroids down to 40 on . 06/14/21: Continue oral steroid therapy. Will do further weaning next week. Wean for sats >88% and prone as tolerated. Will see as needed over the weekend. 06/13/21: Will change to prednisone 60 daily starting tomorrow. Prone if able and wean for sats >88% 06/11/21: no new recs, will change to oral steroids tomorrow, continue to prone if able and wean for sats >88% 06/10/21: Will change to oral steroids on Thursday to begin prolonged taper 06/06/21: Continue to wean as tolerated, will drop steroids on tomorrow. 06/04/21: Clinically no change. Will drop steroids down the end of this week. 05/31/21: Clinically no change. Not eligible for LTACH. Encourage Proning. Will drop steroids down to 40 q8 05/29/21: No acute changes clinically. Still on HFNC but not really able to wean. Continue to encourage proning. Will drop steroids further on Thursday. 05/27/21: No improvement over the weekend but also no worsening. No other strategies to offer. Please continue to encourage patient to prone. I dropped steroids on yesterday. Will wean more later in the week. 05/24/21: No new recs again for today. Will see as needed over the weekend but follow chart peripherally for changes. 05/22/21: No new recs for today. Prognosis remains guarded. 05/21/21: Wean as tolerated. Prone if able. Guarded prognosis 05/20/21: COntinue current level of care. 05/17/21: Prone if possible. Wean FiO2 for sats >88%. Continue scheduled ativan. Prognosis is very very guarded. Unfunded so not a candidate for LTACH 05/16/21: Prone if willing. Wean FIO2 if patient will allow. Anxiety control. Prognosis still remains very guarded. 05/15/21: Not sure if MAR is accurate but may have only gotten one dose of scheduled anixolytic therapy. Continue proning as tolerated, and wean FiO2 and flow for sats >88%. Prognosi remains very very guarded to poor. 05/14/21: Will discontinue the buspar and make the ativan scheduled but will do q6 as oppose to q4 and attempt to leave parameters for nursing when not to give. If anxiety could be controlled, feel that patient could be weaned further. She has no funding so she is not a candidate for LTACH. Prone if possible. Guarded prognosis. This is her day. 05/13/21: Ordered buspar 10 BID to start with to help with anxiety. Please co ntinue to wean FiO2 as tolerated. Will remind nurse that there is PRN ativan available. Continue higher doses of steroids. Prone if able. 05/12/21: Patient may need something longer acting for anxiety. Per chart has not gotten any ativan in days. Would be ok with either buspar or low dose klonopin bid. COntinue higher doses of steroids as patient seems to be responding. Prone if possible. 05/11/21: Continue high doses of steroids and continue to wean for sats >88%. Please encourage proning. 05/10/21: Will continue this dose of steroid at least through the weekend and assess for improvement. will speak with RT about aggressive weaning. Full dose anticoagulation continues. Very very guarded to poor prognosis. 05/09/21: Going to consider increasing steroids to 125q8, maybe as early as tomorrow. continue full dose anticoagulation. 05/08/21: Continue anticoagulation and steroids. Prone if possible. Anxiety control. No objection to CTA if this can happen. Very very guarded prognosis. 05/07/21: Spoke with IMS, not opposed to full dose anticoagulation. If patient goes back on NRB HFNC combo may need to consider restarting PPN again. Encourage proning. Guarded prognosis. 05/06/21: Continue to wean FiO2 and flow for sats >88%. Tolerating diet now so will stop PPN. Continue anxiety control. Continue IV steroids. Would not object to transfer to COVID floor if bed available. Not sure why she was titrated back up to 100% from 85 as all sats documented in the RT's notes were acceptable. Same for under vital signs as well. 05/03/21: Set back last night from yesterday. Continue bipap therapy for now and attempt HFNC maybe later this afternoon. Continue to use PRN ativan but may need to schedule as she likely took off mask from anxiety. Continue IV steroi ds. Hold on transfer to COVID Floor. 05/02/21: Continue to wean FiO2 as tolerated for sats >88%. Will continue bipap at night. Patient has no funding so not a candidate for LTACH. Given that she has been stable and not requiring the combo of HFNC and NRB, will consider moving to COVID floor. 05/01/21: Continue to wean FiO2 for sats >88%. A sat of 90 is more than acceptable and oxygen should not be increased for this unless patient desats and remains at a sat lower than 88. Bipap at night to give some form of relief and HFNC during the day. Currently on just this alone which is improvement. Ok with daily diuresis but must monitor renal function and BP closely. She was over diuresed last week and we ended up giving fluid back. Prognosis remains guarded. 04/30/21: Will start CLinimix today for nutritional support, without electrolytes. Check labs in am. Prone if able. Continue precedex for anxiety. Very very guarded prognosis. Attempting our best to not intubate. 04/29/21: Continue precedex. Continue IV solumedrol. Prone if able. Guarded prognosis. 04/28/21: Continue Precedex. Picc team attempting to place line now. Stable on Bipap. Ordered steroids IV solumedrol to start today. Prognosis remains guarded, still at very high risk for intubation. 04/27/21: Hypotension improving/improved. Hold on any further lasix dosing. Continue precedex to help with anxeity. later today please attempt HFNC with NRB if needed. Attempt to feed if possible. Steroids end today, please order solumedrol 40q8 to start tomorrow (04/28/21). guarded prognosis. 04/26/21: Hypotension today, most likely from precedex use and diuresis that I did the last several days. Will bolus again today. Consider midodrine if BP does not respond. 04/25/21: Lasix again today. Keep PRN ativan for now. Hold on precedex for now. Guarded prognosis. Labs ordered for tomorrow. 04/24/21: Lasix today. Will also start patient on low dose PRN ativan. If this does not help will then try precedex. Guarded prognosis. 04/23/21: Prone as tolerated. No lasix today. Continue decadron. Guarded prognosis. High risk for intubation and high mortality with intubation. 04/19/21: Prone as tolerated during the day and sleep prone at night. Continue IV remdesivir and steroids. Did get actemra. Guarded prognosis. 1. Daily net negative state 2. Prone if possible 3. IV remdesivir. 4. Should be a candidate for Actemra 5. IV steroids 6. Guarded Prognosis Subjective Date of service: 08/18/21 Principal diagnosis: Covid-19 Interval history: REfused bipap again last night. Currently satting 96% on 30/60%. Objective Vital Signs - 12hr 08/17/21 08/17/21 08/17/21 15:00 15:58 16:00 Temperature 98.1 F Pulse Rate 113 H 110 H Pulse Rate [ 117 H From Monitor] Respiratory 29 H 39 H 28 H Rate Blood Pressure 110/53 108/41 O2 Sat by Pulse 95 94 Oximetry 08/17/21 08/17/21 08/17/21 17:00 18:01 18:08 Temperature Pulse Rate 113 H 112 H 110 H Pulse Rate [ From Monitor] Respiratory 30 H 42 H 38 H Rate Blood Pressure 120/58 123/51 123/51 O2 Sat by Pulse 94 96 97 Oximetry 08/17/21 08/17/21 08/17/21 19:00 19:40 20:00 Temperature 99.9 F H Pulse Rate 112 H 111 H Pulse Rate [ From Monitor] Respiratory 39 H 35 H Rate Blood Pressure 118/71 125/67 O2 Sat by Pulse 94 98 97 Oximetry 08/17/21 08/17/21 08/17/21 20:05 21:00 22:00 Temperature Pulse Rate 110 H 109 H 105 H Pulse Rate [ From Monitor] Respiratory 36 H 36 H Rate Blood Pressure 133/69 116/55 O2 Sat by Pulse 99 97 Oximetry 08/17/21 08/17/21 08/17/21 22:08 22:57 23:00 Temperature Pulse Rate 103 H 100 H Pulse Rate [ From Monitor] Respiratory 29 H 24 34 H Rate Blood Pressure 116/55 118/66 O2 Sat by Pulse 100 97 Oximetry 08/17/21 08/18/21 08/18/21 23:19 00:00 02:36 Temperature 98.7 F Pulse Rate 101 H Pulse Rate [ 101 H From Monitor] Respiratory 24 Rate Blood Pressure 114/59 O2 Sat by Pulse 94 98 Oximetry Constitutional: alert, other (on hiflo o2) Eyes: non-icteric ENT: oropharynx moist Neck: supple Effort: normal Ascultation: Bilateral: diminished breath sounds Cardiovascular: regular rate and rhythm Gastrointestinal: normoactive bowel sounds, soft, non-tender, non-distended Integumentary: normal Extremities: no cyanosis, no edema, pink and warm Neurologic: non-focal exam, pupils equal and round Psychiatric: mood appropriate, affect normal CBC and BMP: 07/23/21 04:35 08/08/21 04:51 ABG, PT/INR, D-dimer: ABG ABG pH 7.417 (7.320-7.450) 07/23/21 18:11 POC ABG pCO2 78.3 mmHg (32.0-48.0) H 07/23/21 18:11 ABG pCO2 85.7 mm Hg 07/22/21 12:05 POC ABG pO2 80.7 mmHg (83-108) L 07/23/21 18:11 ABG pO2 66.1 mm Hg (80.0-90.0) L 07/22/21 12:05 POC ABG HCO3 49.3 07/23/21 18:11 ABG O2 Saturation 96.7 (0-100) 07/23/21 18:11 PT/INR, D-dimer D-Dimer 638.35 ng/mlDDU (0-234) H 07/09/21 04:45 Abnormal lab findings: Abnormal Labs 04/16/21 04/16/21 04/16/21 11:42 11:42 11:42 WBC MCV MCH MCHC RDW 16.1 H Lymph % (Auto) 7.8 L [place] % (Auto) Eos % (Auto) Lymph # (Auto) 0.8 L [place] # (Auto) Eos # (Auto) Baso # (Auto) Seg Neutrophils % 87.7 H Seg Neuts % (Manual) Lymphocytes % (Manual) Seg Neutrophils # 8.5 H Seg Neutrophils # Man Lymphocytes # (Manual) D-Dimer 338.70 H ABG pH POC ABG pCO2 POC ABG pO2 ABG pO2 ABG HCO3 ABG O2 Saturation ABG Base Excess ABG Oxyhemoglobin ABG Sodium ABG Chloride ABG Glucose Oxyhemoglobin Carboxyhemoglobin Sodium Potassium Chloride Carbon Dioxide BUN Creatinine Glucose 194 H POC Glucose Hemoglobin A1c Magnesium Ferritin AST ALT Alkaline Phosphatase Lactate Dehydrogenase C-Reactive Protein Total Protein 8.4 H Albumin 3.8 L Arterial Blood Glucose Coronavirus (PCR) 04/16/21 04/16/21 04/17/21 11:42 11:42 03:50 WBC MCV MCH MCHC RDW 16.0 H Lymph % (Auto) 7.7 L [place] % (Auto) Eos % (Auto) Lymph # (Auto) 0.6 L [place] # (Auto) Eos # (Auto) Baso # (Auto) Seg Neutrophils % 89.8 H Seg Neuts % (Manual) Lymphocytes % (Manual) Seg Neutrophils # Seg Neutrophils # Man Lymphocytes # (Manual) D-Dimer ABG pH POC ABG pCO2 POC ABG pO2 ABG pO2 ABG HCO3 ABG O2 Saturation ABG Base Excess ABG Oxyhemoglobin ABG Sodium ABG Chloride ABG Glucose Oxyhemoglobin Carboxyhemoglobin Sodium Potassium Chloride Carbon Dioxide BUN Creatinine Glucose 195 H POC Glucose Hemoglobin A1c Magnesium Ferritin 254.3 H AST ALT Alkaline Phosphatase Lactate Dehydrogenase 359 H C-Reactive Protein 15.20 H Total Protein Albumin Arterial Blood Glucose Coronavirus (PCR) 04/17/21 04/17/21 04/17/21 03:50 08:26 08:26 WBC MCV MCH MCHC RDW Lymph % (Auto) [place] % (Auto) Eos % (Auto) Lymph # (Auto) [place] # (Auto) Eos # (Auto) Baso # (Auto) Seg Neutrophils % Seg Neuts % (Manual) Lymphocytes % (Manual) Seg Neutrophils # Seg Neutrophils # Man Lymphocytes # (Manual) D-Dimer 262.48 H ABG pH POC ABG pCO2 POC ABG pO2 ABG pO2 ABG HCO3 ABG O2 Saturation ABG Base Excess ABG Oxyhemoglobin ABG Sodium ABG Chloride ABG Glucose Oxyhemoglobin Carboxyhemoglobin Sodium Potassium Chloride Carbon Dioxide BUN 20 H Creatinine 0.5 L Glucose 249 H 225 H POC Glucose Hemoglobin A1c Magnesium Ferritin AST ALT Alkaline Phosphatase Lactate Dehydrogenase 338 H C-Reactive Protein 17.20 H Total Protein Albumin 3.2 L Arterial Blood Glucose Coronavirus (PCR) 04/17/21 04/17/21 04/17/21 08:26 15:04 Unknown WBC MCV MCH MCHC RDW Lymph % (Auto) [place] % (Auto) Eos % (Auto) Lymph # (Auto) [place] # (Auto) Eos # (Auto) Baso # (Auto) Seg Neutrophils % Seg Neuts % (Manual) Lymphocytes % (Manual) Seg Neutrophils # Seg Neutrophils # Man Lymphocytes # (Manual) D-Dimer ABG pH POC ABG pCO2 POC ABG pO2 ABG pO2 ABG HCO3 ABG O2 Saturation ABG Base Excess ABG Oxyhemoglobin ABG Sodium ABG Chloride ABG Glucose Oxyhemoglobin Carboxyhemoglobin Sodium Potassium Chloride Carbon Dioxide BUN 20 H Creatinine 0.5 L Glucose 246 H POC Glucose Hemoglobin A1c Magnesium Ferritin 392.0 H AST ALT Alkaline Phosphatase Lactate Dehydrogenase C-Reactive Protein Total Protein 8.3 H Albumin 3.1 L Arterial Blood Glucose Coronavirus (PCR) Positive A 04/18/21 04/18/21 04/18/21 05:06 05:06 07:36 WBC 11.6 H MCV MCH MCHC RDW 16.1 H Lymph % (Auto) [place] % (Auto) Eos % (Auto) Lymph # (Auto) [place] # (Auto) Eos # (Auto) Baso # (Auto) Seg Neutrophils % Seg Neuts % (Manual) Lymphocytes % (Manual) Seg Neutrophils # Seg Neutrophils # Man Lymphocytes # (Manual) D-Dimer ABG pH POC ABG pCO2 POC ABG pO2 ABG pO2 ABG HCO3 ABG O2 Saturation ABG Base Excess ABG Oxyhemoglobin ABG Sodium ABG Chloride ABG Glucose Oxyhemoglobin Carboxyhemoglobin Sodium Potassium 5.2 H Chloride Carbon Dioxide BUN 22 H Creatinine 0.5 L Glucose 315 H POC Glucose Hemoglobin A1c 8.5 H Magnesium Ferritin AST ALT Alkaline Phosphatase Lactate Dehydrogenase C-Reactive Protein Total Protein Albumin 3.3 L Arterial Blood Glucose Coronavirus (PCR) 04/18/21 04/18/21 04/18/21 11:59 16:43 23:24 WBC MCV MCH MCHC RDW Lymph % (Auto) [place] % (Auto) Eos % (Auto) Lymph # (Auto) [place] # (Auto) Eos # (Auto) Baso # (Auto) Seg Neutrophils % Seg Neuts % (Manual) Lymphocytes % (Manual) Seg Neutrophils # Seg Neutrophils # Man Lymphocytes # (Manual) D-Dimer ABG pH POC ABG pCO2 POC ABG pO2 ABG pO2 ABG HCO3 ABG O2 Saturation ABG Base Excess ABG Oxyhemoglobin ABG Sodium ABG Chloride ABG Glucose Oxyhemoglobin Carboxyhemoglobin Sodium Potassium Chloride Carbon Dioxide BUN Creatinine Glucose POC Glucose 284 H 273 H 290 H Hemoglobin A1c Magnesium Ferritin AST ALT Alkaline Phosphatase Lactate Dehydrogenase C-Reactive Protein Total Protein Albumin Arterial Blood Glucose Coronavirus (PCR) 04/19/21 04/19/21 04/19/21 04:19 04:19 08:10 WBC MCV MCH MCHC RDW 15.7 H Lymph % (Auto) [place] % (Auto) Eos % (Auto) Lymph # (Auto) [place] # (Auto) Eos # (Auto) Baso # (Auto) Seg Neutrophils % Seg Neuts % (Manual) Lymphocytes % (Manual) Seg Neutrophils # Seg Neutrophils # Man Lymphocytes # (Manual) D-Dimer ABG pH POC ABG pCO2 POC ABG pO2 ABG pO2 ABG HCO3 ABG O2 Saturation ABG Base Excess ABG Oxyhemoglobin ABG Sodium ABG Chloride ABG Glucose Oxyhemoglobin Carboxyhemoglobin Sodium Potassium Chloride Carbon Dioxide BUN 27 H Creatinine 0.4 L Glucose 184 H POC Glucose 194 H Hemoglobin A1c Magnesium Ferritin AST ALT Alkaline Phosphatase Lactate Dehydrogenase C-Reactive Protein Total Protein Albumin 3.1 L Arterial Blood Glucose Coronavirus (PCR) 04/19/21 04/19/21 04/19/21 11:38 16:25 22:04 WBC MCV MCH MCHC RDW Lymph % (Auto) [place] % (Auto) Eos % (Auto) Lymph # (Auto) [place] # (Auto) Eos # (Auto) Baso # (Auto) Seg Neutrophils % Seg Neuts % (Manual) Lymphocytes % (Manual) Seg Neutrophils # Seg Neutrophils # Man Lymphocytes # (Manual) D-Dimer ABG pH POC ABG pCO2 POC ABG pO2 ABG pO2 ABG HCO3 ABG O2 Saturation ABG Base Excess ABG Oxyhemoglobin ABG Sodium ABG Chloride ABG Glucose Oxyhemoglobin Carboxyhemoglobin Sodium Potassium Chloride Carbon Dioxide BUN Creatinine Glucose POC Glucose 224 H 297 H 251 H Hemoglobin A1c Magnesium Ferritin AST ALT Alkaline Phosphatase Lactate Dehydrogenase C-Reactive Protein Total Protein Albumin Arterial Blood Glucose Coronavirus (PCR) 04/20/21 04/20/21 04/20/21 05:28 08:43 16:21 WBC MCV MCH MCHC RDW Lymph % (Auto) [place] % (Auto) Eos % (Auto) Lymph # (Auto) [place] # (Auto) Eos # (Auto) Baso # (Auto) Seg Neutrophils % Seg Neuts % (Manual) Lymphocytes % (Manual) Seg Neutrophils # Seg Neutrophils # Man Lymphocytes # (Manual) D-Dimer ABG pH POC ABG pCO2 POC ABG pO2 ABG pO2 ABG HCO3 ABG O2 Saturation ABG Base Excess ABG Oxyhemoglobin ABG Sodium ABG Chloride ABG Glucose Oxyhemoglobin Carboxyhemoglobin Sodium Potassium Chloride Carbon Dioxide BUN 27 H Creatinine Glucose 192 H POC Glucose 173 H 253 H Hemoglobin A1c Magnesium Ferritin AST ALT Alkaline Phosphatase Lactate Dehydrogenase C-Reactive Protein Total Protein Albumin 3.0 L Arterial Blood Glucose Coronavirus (PCR) 04/21/21 04/21/21 04/21/21 07:58 12:05 16:08 WBC MCV MCH MCHC RDW Lymph % (Auto) [place] % (Auto) Eos % (Auto) Lymph # (Auto) [place] # (Auto) Eos # (Auto) Baso # (Auto) Seg Neutrophils % Seg Neuts % (Manual) Lymphocytes % (Manual) Seg Neutrophils # Seg Neutrophils # Man Lymphocytes # (Manual) D-Dimer ABG pH POC ABG pCO2 POC ABG pO2 ABG pO2 ABG HCO3 ABG O2 Saturation ABG Base Excess ABG Oxyhemoglobin ABG Sodium ABG Chloride ABG Glucose Oxyhemoglobin Carboxyhemoglobin Sodium Potassium Chloride Carbon Dioxide BUN Creatinine Glucose POC Glucose 140 H 252 H 214 H Hemoglobin A1c Magnesium Ferritin AST ALT Alkaline Phosphatase Lactate Dehydrogenase C-Reactive Protein Total Protein Albumin Arterial Blood Glucose Coronavirus (PCR) 04/21/21 04/22/21 04/22/21 21:42 08:37 12:01 WBC MCV MCH MCHC RDW Lymph % (Auto) [place] % (Auto) Eos % (Auto) Lymph # (Auto) [place] # (Auto) Eos # (Auto) Baso # (Auto) Seg Neutrophils % Seg Neuts % (Manual) Lymphocytes % (Manual) Seg Neutrophils # Seg Neutrophils # Man Lymphocytes # (Manual) D-Dimer ABG pH 7.457 H POC ABG pCO2 POC ABG pO2 49.4 L ABG pO2 ABG HCO3 ABG O2 Saturation ABG Base Excess ABG Oxyhemoglobin 85.6 L ABG Sodium ABG Chloride ABG Glucose 121 H Oxyhemoglobin Carboxyhemoglobin 0.3 L Sodium Potassium Chloride Carbon Dioxide BUN Creatinine Glucose POC Glucose 162 H 227 H Hemoglobin A1c Magnesium Ferritin AST ALT Alkaline Phosphatase Lactate Dehydrogenase C-Reactive Protein Total Protein Albumin Arterial Blood Glucose 121 H Coronavirus (PCR) 04/22/21 04/22/21 04/23/21 16:26 22:23 04:52 WBC MCV MCH MCHC RDW 15.7 H Lymph % (Auto) [place] % (Auto) Eos % (Auto) Lymph # (Auto) [place] # (Auto) Eos # (Auto) Baso # (Auto) Seg Neutrophils % Seg Neuts % (Manual) Lymphocytes % (Manual) Seg Neutrophils # Seg Neutrophils # Man Lymphocytes # (Manual) D-Dimer ABG pH POC ABG pCO2 POC ABG pO2 ABG pO2 ABG HCO3 ABG O2 Saturation ABG Base Excess ABG Oxyhemoglobin ABG Sodium ABG Chloride ABG Glucose Oxyhemoglobin Carboxyhemoglobin Sodium Potassium Chloride Carbon Dioxide BUN Creatinine Glucose POC Glucose 200 H 136 H Hemoglobin A1c Magnesium Ferritin AST ALT Alkaline Phosphatase Lactate Dehydrogenase C-Reactive Protein Total Protein Albumin Arterial Blood Glucose Coronavirus (PCR) 04/23/21 04/23/21 04/23/21 04:52 12:06 17:41 WBC MCV MCH MCHC RDW Lymph % (Auto) [place] % (Auto) Eos % (Auto) Lymph # (Auto) [place] # (Auto) Eos # (Auto) Baso # (Auto) Seg Neutrophils % Seg Neuts % (Manual) Lymphocytes % (Manual) Seg Neutrophils # Seg Neutrophils # Man Lymphocytes # (Manual) D-Dimer ABG pH POC ABG pCO2 POC ABG pO2 ABG pO2 ABG HCO3 ABG O2 Saturation ABG Base Excess ABG Oxyhemoglobin ABG Sodium ABG Chloride ABG Glucose Oxyhemoglobin Carboxyhemoglobin Sodium 136 L Potassium Chloride 97.7 L Carbon Dioxide BUN 23 H Creatinine Glucose 101 H POC Glucose 202 H 169 H Hemoglobin A1c Magnesium Ferritin AST 46 H ALT Alkaline Phosphatase Lactate Dehydrogenase C-Reactive Protein Total Protein Albumin 3.3 L Arterial Blood Glucose Coronavirus (PCR) 04/23/21 04/24/21 04/24/21 23:08 05:17 08:38 WBC MCV MCH MCHC RDW Lymph % (Auto) [place] % (Auto) Eos % (Auto) Lymph # (Auto) [place] # (Auto) Eos # (Auto) Baso # (Auto) Seg Neutrophils % Seg Neuts % (Manual) Lymphocytes % (Manual) Seg Neutrophils # Seg Neutrophils # Man Lymphocytes # (Manual) D-Dimer ABG pH POC ABG pCO2 POC ABG pO2 ABG pO2 ABG HCO3 ABG O2 Saturation ABG Base Excess ABG Oxyhemoglobin ABG Sodium ABG Chloride ABG Glucose Oxyhemoglobin Carboxyhemoglobin Sodium Potassium Chloride Carbon Dioxide BUN Creatinine Glucose POC Glucose 111 H 108 H 126 H Hemoglobin A1c Magnesium Ferritin AST ALT Alkaline Phosphatase Lactate Dehydrogenase C-Reactive Protein Total Protein Albumin Arterial Blood Glucose Coronavirus (PCR) 04/24/21 04/24/21 04/24/21 11:54 17:57 21:23 WBC MCV MCH MCHC RDW Lymph % (Auto) [place] % (Auto) Eos % (Auto) Lymph # (Auto) [place] # (Auto) Eos # (Auto) Baso # (Auto) Seg Neutrophils % Seg Neuts % (Manual) Lymphocytes % (Manual) Seg Neutrophils # Seg Neutrophils # Man Lymphocytes # (Manual) D-Dimer ABG pH POC ABG pCO2 POC ABG pO2 ABG pO2 ABG HCO3 ABG O2 Saturation ABG Base Excess ABG Oxyhemoglobin ABG Sodium ABG Chloride ABG Glucose Oxyhemoglobin Carboxyhemoglobin Sodium Potassium Chloride Carbon Dioxide BUN Creatinine Glucose POC Glucose 147 H 177 H 138 H Hemoglobin A1c Magnesium Ferritin AST ALT Alkaline Phosphatase Lactate Dehydrogenase C-Reactive Protein Total Protein Albumin Arterial Blood Glucose Coronavirus (PCR) 04/25/21 04/25/21 04/25/21 07:06 11:23 15:43 WBC MCV MCH MCHC RDW Lymph % (Auto) [place] % (Auto) Eos % (Auto) Lymph # (Auto) [place] # (Auto) Eos # (Auto) Baso # (Auto) Seg Neutrophils % Seg Neuts % (Manual) Lymphocytes % (Manual) Seg Neutrophils # Seg Neutrophils # Man Lymphocytes # (Manual) D-Dimer ABG pH POC ABG pCO2 POC ABG pO2 ABG pO2 ABG HCO3 ABG O2 Saturation ABG Base Excess ABG Oxyhemoglobin ABG Sodium ABG Chloride ABG Glucose Oxyhemoglobin Carboxyhemoglobin Sodium Potassium Chloride Carbon Dioxide BUN Creatinine Glucose POC Glucose 147 H 169 H 227 H Hemoglobin A1c Magnesium Ferritin AST ALT Alkaline Phosphatase Lactate Dehydrogenase C-Reactive Protein Total Protein Albumin Arterial Blood Glucose Coronavirus (PCR) 04/25/21 04/26/21 04/26/21 21:22 02:45 05:15 WBC MCV MCH MCHC RDW Lymph % (Auto) [place] % (Auto) Eos % (Auto) Lymph # (Auto) [place] # (Auto) Eos # (Auto) Baso # (Auto) Seg Neutrophils % Seg Neuts % (Manual) Lymphocytes % (Manual) Seg Neutrophils # Seg Neutrophils # Man Lymphocytes # (Manual) D-Dimer ABG pH POC ABG pCO2 POC ABG pO2 70.7 L ABG pO2 ABG HCO3 ABG O2 Saturation ABG Base Excess ABG Oxyhemoglobin 93.0 L ABG Sodium 132.7 L ABG Chloride ABG Glucose 115 H Oxyhemoglobin Carboxyhemoglobin Sodium Potassium Chloride 95.8 L Carbon Dioxide 32 H BUN 20 H Creatinine Glucose 102 H POC Glucose 196 H Hemoglobin A1c Magnesium Ferritin AST ALT Alkaline Phosphatase Lactate Dehydrogenase C-Reactive Protein Total Protein Albumin Arterial Blood Glucose 115 H Coronavirus (PCR) 04/26/21 04/26/21 04/26/21 11:49 16:09 21:07 WBC MCV MCH MCHC RDW Lymph % (Auto) [place] % (Auto) Eos % (Auto) Lymph # (Auto) [place] # (Auto) Eos # (Auto) Baso # (Auto) Seg Neutrophils % Seg Neuts % (Manual) Lymphocytes % (Manual) Seg Neutrophils # Seg Neutrophils # Man Lymphocytes # (Manual) D-Dimer ABG pH POC ABG pCO2 POC ABG pO2 ABG pO2 ABG HCO3 ABG O2 Saturation ABG Base Excess ABG Oxyhemoglobin ABG Sodium ABG Chloride ABG Glucose Oxyhemoglobin Carboxyhemoglobin Sodium Potassium Chloride Carbon Dioxide BUN Creatinine Glucose POC Glucose 114 H 188 H 136 H Hemoglobin A1c Magnesium Ferritin AST ALT Alkaline Phosphatase Lactate Dehydrogenase C-Reactive Protein Total Protein Albumin Arterial Blood Glucose Coronavirus (PCR) 04/27/21 04/27/21 04/28/21 17:34 22:12 08:26 WBC MCV MCH MCHC RDW Lymph % (Auto) [place] % (Auto) Eos % (Auto) Lymph # (Auto) [place] # (Auto) Eos # (Auto) Baso # (Auto) Seg Neutrophils % Seg Neuts % (Manual) Lymphocytes % (Manual) Seg Neutrophils # Seg Neutrophils # Man Lymphocytes # (Manual) D-Dimer ABG pH POC ABG pCO2 POC ABG pO2 ABG pO2 ABG HCO3 ABG O2 Saturation ABG Base Excess ABG Oxyhemoglobin ABG Sodium ABG Chloride ABG Glucose Oxyhemoglobin Carboxyhemoglobin Sodium Potassium Chloride Carbon Dioxide BUN Creatinine Glucose POC Glucose 128 H 159 H 69 L Hemoglobin A1c Magnesium Ferritin AST ALT Alkaline Phosphatase Lactate Dehydrogenase C-Reactive Protein Total Protein Albumin Arterial Blood Glucose Coronavirus (PCR) 04/28/21 04/28/21 04/29/21 12:22 21:11 06:05 WBC MCV MCH MCHC RDW Lymph % (Auto) [place] % (Auto) Eos % (Auto) Lymph # (Auto) [place] # (Auto) Eos # (Auto) Baso # (Auto) Seg Neutrophils % Seg Neuts % (Manual) Lymphocytes % (Manual) Seg Neutrophils # Seg Neutrophils # Man Lymphocytes # (Manual) D-Dimer ABG pH POC ABG pCO2 POC ABG pO2 ABG pO2 ABG HCO3 ABG O2 Saturation ABG Base Excess ABG Oxyhemoglobin ABG Sodium ABG Chloride ABG Glucose Oxyhemoglobin Carboxyhemoglobin Sodium 132 L Potassium Chloride 94.4 L Carbon Dioxide BUN Creatinine 0.2 L D Glucose 140 H POC Glucose 141 H 171 H Hemoglobin A1c Magnesium Ferritin AST ALT Alkaline Phosphatase Lactate Dehydrogenase C-Reactive Protein Total Protein Albumin Arterial Blood Glucose Coronavirus (PCR) 04/29/21 04/29/21 04/29/21 06:05 07:24 11:36 WBC MCV MCH MCHC 35 H RDW 15.9 H Lymph % (Auto) [place] % (Auto) Eos % (Auto) Lymph # (Auto) [place] # (Auto) Eos # (Auto) Baso # (Auto) Seg Neutrophils % Seg Neuts % (Manual) Lymphocytes % (Manual) Seg Neutrophils # Seg Neutrophils # Man Lymphocytes # (Manual) D-Dimer ABG pH POC ABG pCO2 POC ABG pO2 ABG pO2 ABG HCO3 ABG O2 Saturation ABG Base Excess ABG Oxyhemoglobin ABG Sodium ABG Chloride ABG Glucose Oxyhemoglobin Carboxyhemoglobin Sodium Potassium Chloride Carbon Dioxide BUN Creatinine Glucose POC Glucose 141 H 220 H Hemoglobin A1c Magnesium Ferritin AST ALT Alkaline Phosphatase Lactate Dehydrogenase C-Reactive Protein Total Protein Albumin Arterial Blood Glucose Coronavirus (PCR) 04/29/21 04/29/21 04/29/21 14:23 15:30 17:06 WBC MCV MCH MCHC RDW Lymph % (Auto) [place] % (Auto) Eos % (Auto) Lymph # (Auto) [place] # (Auto) Eos # (Auto) Baso # (Auto) Seg Neutrophils % Seg Neuts % (Manual) Lymphocytes % (Manual) Seg Neutrophils # Seg Neutrophils # Man Lymphocytes # (Manual) D-Dimer ABG pH POC ABG pCO2 POC ABG pO2 ABG pO2 52.6 L ABG HCO3 ABG O2 Saturation 86.4 L ABG Base Excess ABG Oxyhemoglobin ABG Sodium ABG Chloride ABG Glucose Oxyhemoglobin 84.6 L Carboxyhemoglobin Sodium Potassium Chloride Carbon Dioxide BUN Creatinine Glucose POC Glucose 173 H 158 H Hemoglobin A1c Magnesium Ferritin AST ALT Alkaline Phosphatase Lactate Dehydrogenase C-Reactive Protein Total Protein Albumin Arterial Blood Glucose Coronavirus (PCR) 04/29/21 04/30/21 04/30/21 21:27 07:16 08:00 WBC MCV MCH MCHC RDW 16.1 H Lymph % (Auto) [place] % (Auto) Eos % (Auto) Lymph # (Auto) [place] # (Auto) Eos # (Auto) Baso # (Auto) Seg Neutrophils % Seg Neuts % (Manual) Lymphocytes % (Manual) Seg Neutrophils # Seg Neutrophils # Man Lymphocytes # (Manual) D-Dimer ABG pH POC ABG pCO2 POC ABG pO2 ABG pO2 ABG HCO3 ABG O2 Saturation ABG Base Excess ABG Oxyhemoglobin ABG Sodium ABG Chloride ABG Glucose Oxyhemoglobin Carboxyhemoglobin Sodium Potassium Chloride Carbon Dioxide BUN Creatinine Glucose POC Glucose 244 H 175 H Hemoglobin A1c Magnesium Ferritin AST ALT Alkaline Phosphatase Lactate Dehydrogenase C-Reactive Protein Total Protein Albumin Arterial Blood Glucose Coronavirus (PCR) 04/30/21 04/30/21 04/30/21 08:00 08:00 11:03 WBC MCV MCH MCHC RDW Lymph % (Auto) [place] % (Auto) Eos % (Auto) Lymph # (Auto) [place] # (Auto) Eos # (Auto) Baso # (Auto) Seg Neutrophils % Seg Neuts % (Manual) Lymphocytes % (Manual) Seg Neutrophils # Seg Neutrophils # Man Lymphocytes # (Manual) D-Dimer 1796.87 H ABG pH POC ABG pCO2 POC ABG pO2 ABG pO2 ABG HCO3 ABG O2 Saturation ABG Base Excess ABG Oxyhemoglobin ABG Sodium ABG Chloride ABG Glucose Oxyhemoglobin Carboxyhemoglobin Sodium 135 L Potassium Chloride 96.3 L Carbon Dioxide BUN Creatinine 0.2 L Glucose 153 H POC Glucose 183 H Hemoglobin A1c Magnesium Ferritin AST 41 H ALT 76 H Alkaline Phosphatase 160 H Lactate Dehydrogenase 522 H C-Reactive Protein Total Protein 6.1 L Albumin 3.1 L Arterial Blood Glucose Coronavirus (PCR) 04/30/21 04/30/21 05/01/21 17:04 22:17 05:39 WBC MCV MCH MCHC RDW Lymph % (Auto) [place] % (Auto) Eos % (Auto) Lymph # (Auto) [place] # (Auto) Eos # (Auto) Baso # (Auto) Seg Neutrophils % Seg Neuts % (Manual) Lymphocytes % (Manual) Seg Neutrophils # Seg Neutrophils # Man Lymphocytes # (Manual) D-Dimer ABG pH POC ABG pCO2 POC ABG pO2 ABG pO2 ABG HCO3 ABG O2 Saturation ABG Base Excess ABG Oxyhemoglobin ABG Sodium ABG Chloride ABG Glucose Oxyhemoglobin Carboxyhemoglobin Sodium 133 L Potassium Chloride 92.1 L Carbon Dioxide BUN 24 H Creatinine 0.4 L D Glucose 269 H POC Glucose 167 H 208 H Hemoglobin A1c Magnesium Ferritin AST ALT 66 H Alkaline Phosphatase 142 H Lactate Dehydrogenase C-Reactive Protein Total Protein Albumin 3.2 L Arterial Blood Glucose Coronavirus (PCR) 05/01/21 05/01/21 05/01/21 05:39 05:39 07:45 WBC MCV MCH MCHC RDW 16.0 H Lymph % (Auto) [place] % (Auto) Eos % (Auto) Lymph # (Auto) [place] # (Auto) Eos # (Auto) Baso # (Auto) Seg Neutrophils % Seg Neuts % (Manual) Lymphocytes % (Manual) Seg Neutrophils # Seg Neutrophils # Man Lymphocytes # (Manual) D-Dimer 3984.95 H ABG pH POC ABG pCO2 POC ABG pO2 ABG pO2 ABG HCO3 ABG O2 Saturation ABG Base Excess ABG Oxyhemoglobin ABG Sodium ABG Chloride ABG Glucose Oxyhemoglobin Carboxyhemoglobin Sodium Potassium Chloride Carbon Dioxide BUN Creatinine Glucose POC Glucose 229 H Hemoglobin A1c Magnesium Ferritin AST ALT Alkaline Phosphatase Lactate Dehydrogenase C-Reactive Protein Total Protein Albumin Arterial Blood Glucose Coronavirus (PCR) 05/01/21 05/01/21 05/01/21 12:10 15:46 21:06 WBC MCV MCH MCHC RDW Lymph % (Auto) [place] % (Auto) Eos % (Auto) Lymph # (Auto) [place] # (Auto) Eos # (Auto) Baso # (Auto) Seg Neutrophils % Seg Neuts % (Manual) Lymphocytes % (Manual) Seg Neutrophils # Seg Neutrophils # Man Lymphocytes # (Manual) D-Dimer ABG pH POC ABG pCO2 POC ABG pO2 ABG pO2 ABG HCO3 ABG O2 Saturation ABG Base Excess ABG Oxyhemoglobin ABG Sodium ABG Chloride ABG Glucose Oxyhemoglobin Carboxyhemoglobin Sodium Potassium Chloride Carbon Dioxide BUN Creatinine Glucose POC Glucose 296 H 279 H 232 H Hemoglobin A1c Magnesium Ferritin AST ALT Alkaline Phosphatase Lactate Dehydrogenase C-Reactive Protein Total Protein Albumin Arterial Blood Glucose Coronavirus (PCR) 05/02/21 05/02/21 05/02/21 04:55 04:55 04:55 WBC MCV MCH MCHC RDW 16.1 H Lymph % (Auto) [place] % (Auto) Eos % (Auto) Lymph # (Auto) [place] # (Auto) Eos # (Auto) Baso # (Auto) Seg Neutrophils % Seg Neuts % (Manual) Lymphocytes % (Manual) Seg Neutrophils # Seg Neutrophils # Man Lymphocytes # (Manual) D-Dimer 1401.08 H ABG pH POC ABG pCO2 POC ABG pO2 ABG pO2 ABG HCO3 ABG O2 Saturation ABG Base Excess ABG Oxyhemoglobin ABG Sodium ABG Chloride ABG Glucose Oxyhemoglobin Carboxyhemoglobin Sodium 131 L Potassium Chloride 95.5 L Carbon Dioxide BUN 20 H Creatinine 0.3 L Glucose 288 H POC Glucose Hemoglobin A1c Magnesium Ferritin AST ALT Alkaline Phosphatase Lactate Dehydrogenase C-Reactive Protein Total Protein 6.0 L Albumin 3.1 L Arterial Blood Glucose Coronavirus (PCR) 05/02/21 05/02/21 05/02/21 07:53 11:45 15:25 WBC MCV MCH MCHC RDW Lymph % (Auto) [place] % (Auto) Eos % (Auto) Lymph # (Auto) [place] # (Auto) Eos # (Auto) Baso # (Auto) Seg Neutrophils % Seg Neuts % (Manual) Lymphocytes % (Manual) Seg Neutrophils # Seg Neutrophils # Man Lymphocytes # (Manual) D-Dimer ABG pH POC ABG pCO2 POC ABG pO2 ABG pO2 ABG HCO3 ABG O2 Saturation ABG Base Excess ABG Oxyhemoglobin ABG Sodium ABG Chloride ABG Glucose Oxyhemoglobin Carboxyhemoglobin Sodium Potassium Chloride Carbon Dioxide BUN Creatinine Glucose POC Glucose 180 H 228 H 275 H Hemoglobin A1c Magnesium Ferritin AST ALT Alkaline Phosphatase Lactate Dehydrogenase C-Reactive Protein Total Protein Albumin Arterial Blood Glucose Coronavirus (PCR) 05/02/21 05/03/21 05/03/21 22:56 04:30 04:49 WBC MCV MCH MCHC RDW Lymph % (Auto) [place] % (Auto) Eos % (Auto) Lymph # (Auto) [place] # (Auto) Eos # (Auto) Baso # (Auto) Seg Neutrophils % Seg Neuts % (Manual) Lymphocytes % (Manual) Seg Neutrophils # Seg Neutrophils # Man Lymphocytes # (Manual) D-Dimer ABG pH 7.229 L POC ABG pCO2 POC ABG pO2 65.3 L ABG pO2 ABG HCO3 ABG O2 Saturation ABG Base Excess ABG Oxyhemoglobin 87.8 L ABG Sodium 133.0 L ABG Chloride 97.0 L ABG Glucose 403 H Oxyhemoglobin Carboxyhemoglobin Sodium 130 L Potassium Chloride 94.9 L Carbon Dioxide BUN 20 H Creatinine 0.5 L D Glucose 359 H POC Glucose 293 H Hemoglobin A1c Magnesium Ferritin AST 54 H ALT 75 H Alkaline Phosphatase 138 H Lactate Dehydrogenase C-Reactive Protein Total Protein Albumin 3.6 L Arterial Blood Glucose 403 H Coronavirus (PCR) 05/03/21 05/03/21 05/03/21 05:27 11:26 17:57 WBC MCV MCH MCHC RDW Lymph % (Auto) [place] % (Auto) Eos % (Auto) Lymph # (Auto) [place] # (Auto) Eos # (Auto) Baso # (Auto) Seg Neutrophils % Seg Neuts % (Manual) Lymphocytes % (Manual) Seg Neutrophils # Seg Neutrophils # Man Lymphocytes # (Manual) D-Dimer ABG pH POC ABG pCO2 POC ABG pO2 ABG pO2 ABG HCO3 ABG O2 Saturation ABG Base Excess ABG Oxyhemoglobin ABG Sodium ABG Chloride ABG Glucose Oxyhemoglobin Carboxyhemoglobin Sodium Potassium Chloride Carbon Dioxide BUN Creatinine Glucose POC Glucose 361 H 297 H 226 H Hemoglobin A1c Magnesium Ferritin AST ALT Alkaline Phosphatase Lactate Dehydrogenase C-Reactive Protein Total Protein Albumin Arterial Blood Glucose Coronavirus (PCR) 05/03/21 05/04/21 05/04/21 23:12 05:12 07:30 WBC MCV MCH MCHC RDW Lymph % (Auto) [place] % (Auto) Eos % (Auto) Lymph # (Auto) [place] # (Auto) Eos # (Auto) Baso # (Auto) Seg Neutrophils % Seg Neuts % (Manual) Lymphocytes % (Manual) Seg Neutrophils # Seg Neutrophils # Man Lymphocytes # (Manual) D-Dimer ABG pH POC ABG pCO2 POC ABG pO2 ABG pO2 ABG HCO3 ABG O2 Saturation ABG Base Excess ABG Oxyhemoglobin ABG Sodium ABG Chloride ABG Glucose Oxyhemoglobin Carboxyhemoglobin Sodium Potassium Chloride Carbon Dioxide BUN Creatinine Glucose POC Glucose 282 H 285 H 254 H Hemoglobin A1c Magnesium Ferritin AST ALT Alkaline Phosphatase Lactate Dehydrogenase C-Reactive Protein Total Protein Albumin Arterial Blood Glucose Coronavirus (PCR) 05/04/21 05/04/21 05/04/21 08:58 11:45 16:07 WBC MCV MCH MCHC RDW Lymph % (Auto) [place] % (Auto) Eos % (Auto) Lymph # (Auto) [place] # (Auto) Eos # (Auto) Baso # (Auto) Seg Neutrophils % Seg Neuts % (Manual) Lymphocytes % (Manual) Seg Neutrophils # Seg Neutrophils # Man Lymphocytes # (Manual) D-Dimer ABG pH POC ABG pCO2 POC ABG pO2 ABG pO2 ABG HCO3 ABG O2 Saturation ABG Base Excess ABG Oxyhemoglobin ABG Sodium ABG Chloride ABG Glucose Oxyhemoglobin Carboxyhemoglobin Sodium 134 L Potassium Chloride Carbon Dioxide BUN 20 H Creatinine 0.3 L Glucose 267 H POC Glucose 244 H 297 H Hemoglobin A1c Magnesium Ferritin AST ALT Alkaline Phosphatase Lactate Dehydrogenase C-Reactive Protein Total Protein 6.0 L Albumin 3.2 L Arterial Blood Glucose Coronavirus (PCR) 05/04/21 05/05/21 05/05/21 23:32 05:00 05:13 WBC MCV MCH MCHC RDW Lymph % (Auto) [place] % (Auto) Eos % (Auto) Lymph # (Auto) [place] # (Auto) Eos # (Auto) Baso # (Auto) Seg Neutrophils % Seg Neuts % (Manual) Lymphocytes % (Manual) Seg Neutrophils # Seg Neutrophils # Man Lymphocytes # (Manual) D-Dimer ABG pH POC ABG pCO2 POC ABG pO2 ABG pO2 ABG HCO3 ABG O2 Saturation ABG Base Excess ABG Oxyhemoglobin ABG Sodium ABG Chloride ABG Glucose Oxyhemoglobin Carboxyhemoglobin Sodium 132 L Potassium Chloride 96.4 L Carbon Dioxide BUN 22 H Creatinine 0.3 L Glucose 228 H POC Glucose 154 H 260 H Hemoglobin A1c Magnesium Ferritin AST ALT 67 H Alkaline Phosphatase Lactate Dehydrogenase C-Reactive Protein Total Protein 6.1 L Albumin 3.2 L Arterial Blood Glucose Coronavirus (PCR) 05/05/21 05/05/21 05/05/21 11:32 17:49 23:07 WBC MCV MCH MCHC RDW Lymph % (Auto) [place] % (Auto) Eos % (Auto) Lymph # (Auto) [place] # (Auto) Eos # (Auto) Baso # (Auto) Seg Neutrophils % Seg Neuts % (Manual) Lymphocytes % (Manual) Seg Neutrophils # Seg Neutrophils # Man Lymphocytes # (Manual) D-Dimer ABG pH POC ABG pCO2 POC ABG pO2 ABG pO2 ABG HCO3 ABG O2 Saturation ABG Base Excess ABG Oxyhemoglobin ABG Sodium ABG Chloride ABG Glucose Oxyhemoglobin Carboxyhemoglobin Sodium Potassium Chloride Carbon Dioxide BUN Creatinine Glucose POC Glucose 279 H 308 H 213 H Hemoglobin A1c Magnesium Ferritin AST ALT Alkaline Phosphatase Lactate Dehydrogenase C-Reactive Protein Total Protein Albumin Arterial Blood Glucose Coronavirus (PCR) 05/06/21 05/06/21 05/06/21 05:00 05:00 05:20 WBC MCV MCH MCHC RDW 16.8 H Lymph % (Auto) [place] % (Auto) Eos % (Auto) Lymph # (Auto) [place] # (Auto) Eos # (Auto) Baso # (Auto) Seg Neutrophils % Seg Neuts % (Manual) 99.0 H Lymphocytes % (Manual) Seg Neutrophils # Seg Neutrophils # Man 10.9 H Lymphocytes # (Manual) 0.0 L D-Dimer ABG pH POC ABG pCO2 POC ABG pO2 ABG pO2 ABG HCO3 ABG O2 Saturation ABG Base Excess ABG Oxyhemoglobin ABG Sodium ABG Chloride ABG Glucose Oxyhemoglobin Carboxyhemoglobin Sodium 133 L Potassium Chloride Carbon Dioxide BUN 21 H Creatinine 0.3 L Glucose 259 H POC Glucose 308 H Hemoglobin A1c Magnesium Ferritin AST ALT Alkaline Phosphatase Lactate Dehydrogenase C-Reactive Protein Total Protein Albumin 3.2 L Arterial Blood Glucose Coronavirus (PCR) 05/06/21 05/06/21 05/06/21 11:24 17:54 21:32 WBC MCV MCH MCHC RDW Lymph % (Auto) [place] % (Auto) Eos % (Auto) Lymph # (Auto) [place] # (Auto) Eos # (Auto) Baso # (Auto) Seg Neutrophils % Seg Neuts % (Manual) Lymphocytes % (Manual) Seg Neutrophils # Seg Neutrophils # Man Lymphocytes # (Manual) D-Dimer ABG pH POC ABG pCO2 POC ABG pO2 ABG pO2 ABG HCO3 ABG O2 Saturation ABG Base Excess ABG Oxyhemoglobin ABG Sodium ABG Chloride ABG Glucose Oxyhemoglobin Carboxyhemoglobin Sodium Potassium Chloride Carbon Dioxide BUN Creatinine Glucose POC Glucose 262 H 124 H 246 H Hemoglobin A1c Magnesium Ferritin AST ALT Alkaline Phosphatase Lactate Dehydrogenase C-Reactive Protein Total Protein Albumin Arterial Blood Glucose Coronavirus (PCR) 05/06/21 05/07/21 05/07/21 23:10 04:54 04:54 WBC MCV MCH MCHC RDW Lymph % (Auto) [place] % (Auto) Eos % (Auto) Lymph # (Auto) [place] # (Auto) Eos # (Auto) Baso # (Auto) Seg Neutrophils % Seg Neuts % (Manual) Lymphocytes % (Manual) Seg Neutrophils # Seg Neutrophils # Man Lymphocytes # (Manual) D-Dimer 1609.28 H ABG pH POC ABG pCO2 POC ABG pO2 ABG pO2 ABG HCO3 ABG O2 Saturation ABG Base Excess ABG Oxyhemoglobin ABG Sodium ABG Chloride ABG Glucose Oxyhemoglobin Carboxyhemoglobin Sodium 136 L Potassium Chloride Carbon Dioxide BUN 23 H Creatinine 0.3 L Glucose 110 H POC Glucose 249 H Hemoglobin A1c Magnesium Ferritin AST ALT Alkaline Phosphatase Lactate Dehydrogenase C-Reactive Protein Total Protein 6.2 L Albumin 3.0 L Arterial Blood Glucose Coronavirus (PCR) 05/07/21 05/07/21 05/07/21 04:54 04:54 11:41 WBC MCV MCH MCHC RDW Lymph % (Auto) [place] % (Auto) Eos % (Auto) Lymph # (Auto) [place] # (Auto) Eos # (Auto) Baso # (Auto) Seg Neutrophils % Seg Neuts % (Manual) Lymphocytes % (Manual) Seg Neutrophils # Seg Neutrophils # Man Lymphocytes # (Manual) D-Dimer ABG pH POC ABG pCO2 POC ABG pO2 ABG pO2 ABG HCO3 ABG O2 Saturation ABG Base Excess ABG Oxyhemoglobin ABG Sodium ABG Chloride ABG Glucose Oxyhemoglobin Carboxyhemoglobin Sodium Potassium Chloride Carbon Dioxide BUN Creatinine Glucose POC Glucose 118 H Hemoglobin A1c Magnesium Ferritin 296.1 H AST ALT Alkaline Phosphatase Lactate Dehydrogenase 724 H C-Reactive Protein Total Protein Albumin Arterial Blood Glucose Coronavirus (PCR) 05/07/21 05/07/21 05/08/21 16:43 22:34 06:44 WBC MCV MCH MCHC RDW Lymph % (Auto) [place] % (Auto) Eos % (Auto) Lymph # (Auto) [place] # (Auto) Eos # (Auto) Baso # (Auto) Seg Neutrophils % Seg Neuts % (Manual) Lymphocytes % (Manual) Seg Neutrophils # Seg Neutrophils # Man Lymphocytes # (Manual) D-Dimer ABG pH POC ABG pCO2 POC ABG pO2 ABG pO2 ABG HCO3 ABG O2 Saturation ABG Base Excess ABG Oxyhemoglobin ABG Sodium ABG Chloride ABG Glucose Oxyhemoglobin Carboxyhemoglobin Sodium Potassium Chloride Carbon Dioxide BUN Creatinine Glucose POC Glucose 159 H 233 H 235 H Hemoglobin A1c Magnesium Ferritin AST ALT Alkaline Phosphatase Lactate Dehydrogenase C-Reactive Protein Total Protein Albumin Arterial Blood Glucose Coronavirus (PCR) 05/08/21 05/08/21 05/08/21 07:49 11:56 17:13 WBC MCV MCH MCHC RDW Lymph % (Auto) [place] % (Auto) Eos % (Auto) Lymph # (Auto) [place] # (Auto) Eos # (Auto) Baso # (Auto) Seg Neutrophils % Seg Neuts % (Manual) Lymphocytes % (Manual) Seg Neutrophils # Seg Neutrophils # Man Lymphocytes # (Manual) D-Dimer ABG pH POC ABG pCO2 POC ABG pO2 ABG pO2 ABG HCO3 ABG O2 Saturation ABG Base Excess ABG Oxyhemoglobin ABG Sodium ABG Chloride ABG Glucose Oxyhemoglobin Carboxyhemoglobin Sodium Potassium Chloride Carbon Dioxide BUN Creatinine Glucose POC Glucose 219 H 184 H 182 H Hemoglobin A1c Magnesium Ferritin AST ALT Alkaline Phosphatase Lactate Dehydrogenase C-Reactive Protein Total Protein Albumin Arterial Blood Glucose Coronavirus (PCR) 05/08/21 05/09/21 05/09/21 23:35 05:20 05:20 WBC MCV MCH MCHC RDW Lymph % (Auto) [place] % (Auto) Eos % (Auto) Lymph # (Auto) [place] # (Auto) Eos # (Auto) Baso # (Auto) Seg Neutrophils % Seg Neuts % (Manual) Lymphocytes % (Manual) Seg Neutrophils # Seg Neutrophils # Man Lymphocytes # (Manual) D-Dimer 1003.87 H ABG pH POC ABG pCO2 POC ABG pO2 ABG pO2 ABG HCO3 ABG O2 Saturation ABG Base Excess ABG Oxyhemoglobin ABG Sodium ABG Chloride ABG Glucose Oxyhemoglobin Carboxyhemoglobin Sodium Potassium Chloride Carbon Dioxide BUN Creatinine Glucose POC Glucose 198 H Hemoglobin A1c Magnesium Ferritin 378.7 H AST ALT Alkaline Phosphatase Lactate Dehydrogenase C-Reactive Protein Total Protein Albumin Arterial Blood Glucose Coronavirus (PCR) 05/09/21 05/09/21 05/09/21 05:20 06:04 12:53 WBC MCV MCH MCHC RDW Lymph % (Auto) [place] % (Auto) Eos % (Auto) Lymph # (Auto) [place] # (Auto) Eos # (Auto) Baso # (Auto) Seg Neutrophils % Seg Neuts % (Manual) Lymphocytes % (Manual) Seg Neutrophils # Seg Neutrophils # Man Lymphocytes # (Manual) D-Dimer ABG pH POC ABG pCO2 POC ABG pO2 ABG pO2 ABG HCO3 ABG O2 Saturation ABG Base Excess ABG Oxyhemoglobin ABG Sodium ABG Chloride ABG Glucose Oxyhemoglobin Carboxyhemoglobin Sodium Potassium Chloride Carbon Dioxide BUN Creatinine Glucose POC Glucose 159 H 180 H Hemoglobin A1c Magnesium Ferritin AST ALT Alkaline Phosphatase Lactate Dehydrogenase 558 H C-Reactive Protein 2.40 H Total Protein Albumin Arterial Blood Glucose Coronavirus (PCR) 05/09/21 05/09/21 05/10/21 16:43 21:27 10:18 WBC MCV MCH MCHC RDW Lymph % (Auto) [place] % (Auto) Eos % (Auto) Lymph # (Auto) [place] # (Auto) Eos # (Auto) Baso # (Auto) Seg Neutrophils % Seg Neuts % (Manual) Lymphocytes % (Manual) Seg Neutrophils # Seg Neutrophils # Man Lymphocytes # (Manual) D-Dimer ABG pH POC ABG pCO2 POC ABG pO2 ABG pO2 ABG HCO3 ABG O2 Saturation ABG Base Excess ABG Oxyhemoglobin ABG Sodium ABG Chloride ABG Glucose Oxyhemoglobin Carboxyhemoglobin Sodium Potassium Chloride Carbon Dioxide BUN Creatinine Glucose POC Glucose 212 H 285 H 261 H Hemoglobin A1c Magnesium Ferritin AST ALT Alkaline Phosphatase Lactate Dehydrogenase C-Reactive Protein Total Protein Albumin Arterial Blood Glucose Coronavirus (PCR) 05/10/21 05/10/21 05/11/21 17:58 18:02 00:29 WBC MCV MCH MCHC RDW Lymph % (Auto) [place] % (Auto) Eos % (Auto) Lymph # (Auto) [place] # (Auto) Eos # (Auto) Baso # (Auto) Seg Neutrophils % Seg Neuts % (Manual) Lymphocytes % (Manual) Seg Neutrophils # Seg Neutrophils # Man Lymphocytes # (Manual) D-Dimer ABG pH POC ABG pCO2 POC ABG pO2 ABG pO2 ABG HCO3 ABG O2 Saturation ABG Base Excess ABG Oxyhemoglobin ABG Sodium ABG Chloride ABG Glucose Oxyhemoglobin Carboxyhemoglobin Sodium Potassium Chloride Carbon Dioxide BUN Creatinine Glucose POC Glucose 213 H 179 H 149 H Hemoglobin A1c Magnesium Ferritin AST ALT Alkaline Phosphatase Lactate Dehydrogenase C-Reactive Protein Total Protein Albumin Arterial Blood Glucose Coronavirus (PCR) 05/11/21 05/11/21 05/11/21 05:22 11:32 17:00 WBC 14.9 H MCV MCH MCHC RDW 18.9 H Lymph % (Auto) 4.9 L [place] % (Auto) Eos % (Auto) Lymph # (Auto) 0.7 L [place] # (Auto) Eos # (Auto) Baso # (Auto) 0.2 H Seg Neutrophils % Seg Neuts % (Manual) Lymphocytes % (Manual) Seg Neutrophils # 13.3 H Seg Neutrophils # Man Lymphocytes # (Manual) D-Dimer ABG pH POC ABG pCO2 POC ABG pO2 ABG pO2 ABG HCO3 ABG O2 Saturation ABG Base Excess ABG Oxyhemoglobin ABG Sodium ABG Chloride ABG Glucose Oxyhemoglobin Carboxyhemoglobin Sodium Potassium Chloride Carbon Dioxide BUN Creatinine Glucose POC Glucose 162 H 179 H Hemoglobin A1c Magnesium Ferritin AST ALT Alkaline Phosphatase Lactate Dehydrogenase C-Reactive Protein Total Protein Albumin Arterial Blood Glucose Coronavirus (PCR) 05/11/21 05/11/21 05/11/21 17:00 17:33 22:03 WBC MCV MCH MCHC RDW Lymph % (Auto) [place] % (Auto) Eos % (Auto) Lymph # (Auto) [place] # (Auto) Eos # (Auto) Baso # (Auto) Seg Neutrophils % Seg Neuts % (Manual) Lymphocytes % (Manual) Seg Neutrophils # Seg Neutrophils # Man Lymphocytes # (Manual) D-Dimer ABG pH POC ABG pCO2 POC ABG pO2 ABG pO2 ABG HCO3 ABG O2 Saturation ABG Base Excess ABG Oxyhemoglobin ABG Sodium ABG Chloride ABG Glucose Oxyhemoglobin Carboxyhemoglobin Sodium 135 L Potassium Chloride 97.3 L Carbon Dioxide BUN 21 H Creatinine 0.3 L Glucose 133 H POC Glucose 140 H 282 H Hemoglobin A1c Magnesium Ferritin AST ALT 60 H Alkaline Phosphatase Lactate Dehydrogenase C-Reactive Protein Total Protein Albumin 3.1 L Arterial Blood Glucose Coronavirus (PCR) 05/12/21 05/12/21 05/12/21 04:05 04:05 04:05 WBC MCV MCH MCHC RDW 18.4 H Lymph % (Auto) [place] % (Auto) Eos % (Auto) Lymph # (Auto) [place] # (Auto) Eos # (Auto) Baso # (Auto) Seg Neutrophils % Seg Neuts % (Manual) 94.0 H Lymphocytes % (Manual) 4.0 L Seg Neutrophils # Seg Neutrophils # Man Lymphocytes # (Manual) 0.3 L D-Dimer ABG pH POC ABG pCO2 POC ABG pO2 ABG pO2 ABG HCO3 ABG O2 Saturation ABG Base Excess ABG Oxyhemoglobin ABG Sodium ABG Chloride ABG Glucose Oxyhemoglobin Carboxyhemoglobin Sodium 136 L Potassium Chloride Carbon Dioxide BUN 18 H Creatinine 0.2 L Glucose 142 H POC Glucose Hemoglobin A1c Magnesium Ferritin 350.7 H AST ALT Alkaline Phosphatase Lactate Dehydrogenase 546 H C-Reactive Protein Total Protein 6.1 L Albumin 3.0 L Arterial Blood Glucose Coronavirus (PCR) 05/12/21 05/12/21 05/12/21 05:11 11:17 16:27 WBC MCV MCH MCHC RDW Lymph % (Auto) [place] % (Auto) Eos % (Auto) Lymph # (Auto) [place] # (Auto) Eos # (Auto) Baso # (Auto) Seg Neutrophils % Seg Neuts % (Manual) Lymphocytes % (Manual) Seg Neutrophils # Seg Neutrophils # Man Lymphocytes # (Manual) D-Dimer ABG pH POC ABG pCO2 POC ABG pO2 ABG pO2 ABG HCO3 ABG O2 Saturation ABG Base Excess ABG Oxyhemoglobin ABG Sodium ABG Chloride ABG Glucose Oxyhemoglobin Carboxyhemoglobin Sodium Potassium Chloride Carbon Dioxide BUN Creatinine Glucose POC Glucose 152 H 190 H 261 H Hemoglobin A1c Magnesium Ferritin AST ALT Alkaline Phosphatase Lactate Dehydrogenase C-Reactive Protein Total Protein Albumin Arterial Blood Glucose Coronavirus (PCR) 05/12/21 05/13/21 05/13/21 20:55 11:08 21:41 WBC MCV MCH MCHC RDW Lymph % (Auto) [place] % (Auto) Eos % (Auto) Lymph # (Auto) [place] # (Auto) Eos # (Auto) Baso # (Auto) Seg Neutrophils % Seg Neuts % (Manual) Lymphocytes % (Manual) Seg Neutrophils # Seg Neutrophils # Man Lymphocytes # (Manual) D-Dimer ABG pH POC ABG pCO2 POC ABG pO2 ABG pO2 ABG HCO3 ABG O2 Saturation ABG Base Excess ABG Oxyhemoglobin ABG Sodium ABG Chloride ABG Glucose Oxyhemoglobin Carboxyhemoglobin Sodium Potassium Chloride Carbon Dioxide BUN Creatinine Glucose POC Glucose 231 H 106 H 174 H Hemoglobin A1c Magnesium Ferritin AST ALT Alkaline Phosphatase Lactate Dehydrogenase C-Reactive Protein Total Protein Albumin Arterial Blood Glucose Coronavirus (PCR) 05/14/21 05/14/21 05/14/21 00:53 02:23 06:06 WBC MCV MCH MCHC RDW Lymph % (Auto) [place] % (Auto) Eos % (Auto) Lymph # (Auto) [place] # (Auto) Eos # (Auto) Baso # (Auto) Seg Neutrophils % Seg Neuts % (Manual) Lymphocytes % (Manual) Seg Neutrophils # Seg Neutrophils # Man Lymphocytes # (Manual) D-Dimer ABG pH POC ABG pCO2 POC ABG pO2 ABG pO2 130.3 H ABG HCO3 30.6 H ABG O2 Saturation ABG Base Excess 4.9 H ABG Oxyhemoglobin ABG Sodium ABG Chloride ABG Glucose Oxyhemoglobin Carboxyhemoglobin Sodium Potassium Chloride Carbon Dioxide BUN Creatinine Glucose POC Glucose 229 H 119 H Hemoglobin A1c Magnesium Ferritin AST ALT Alkaline Phosphatase Lactate Dehydrogenase C-Reactive Protein Total Protein Albumin Arterial Blood Glucose Coronavirus (PCR) 05/14/21 05/14/21 05/14/21 07:13 07:13 07:13 WBC MCV MCH MCHC RDW Lymph % (Auto) [place] % (Auto) Eos % (Auto) Lymph # (Auto) [place] # (Auto) Eos # (Auto) Baso # (Auto) Seg Neutrophils % Seg Neuts % (Manual) Lymphocytes % (Manual) Seg Neutrophils # Seg Neutrophils # Man Lymphocytes # (Manual) D-Dimer 712.80 H ABG pH POC ABG pCO2 POC ABG pO2 ABG pO2 ABG HCO3 ABG O2 Saturation ABG Base Excess ABG Oxyhemoglobin ABG Sodium ABG Chloride ABG Glucose Oxyhemoglobin Carboxyhemoglobin Sodium 133 L Potassium Chloride 95.5 L Carbon Dioxide 32 H BUN Creatinine 0.2 L Glucose 137 H POC Glucose Hemoglobin A1c Magnesium Ferritin 283.5 H AST ALT 63 H Alkaline Phosphatase Lactate Dehydrogenase 563 H C-Reactive Protein Total Protein 6.1 L Albumin 3.0 L Arterial Blood Glucose Coronavirus (PCR) 05/14/21 05/14/21 05/14/21 12:21 15:33 21:50 WBC MCV MCH MCHC RDW Lymph % (Auto) [place] % (Auto) Eos % (Auto) Lymph # (Auto) [place] # (Auto) Eos # (Auto) Baso # (Auto) Seg Neutrophils % Seg Neuts % (Manual) Lymphocytes % (Manual) Seg Neutrophils # Seg Neutrophils # Man Lymphocytes # (Manual) D-Dimer ABG pH POC ABG pCO2 POC ABG pO2 ABG pO2 ABG HCO3 ABG O2 Saturation ABG Base Excess ABG Oxyhemoglobin ABG Sodium ABG Chloride ABG Glucose Oxyhemoglobin Carboxyhemoglobin Sodium Potassium Chloride Carbon Dioxide BUN Creatinine Glucose POC Glucose 143 H 204 H 202 H Hemoglobin A1c Magnesium Ferritin AST ALT Alkaline Phosphatase Lactate Dehydrogenase C-Reactive Protein Total Protein Albumin Arterial Blood Glucose Coronavirus (PCR) 05/15/21 05/15/21 05/15/21 05:05 11:12 16:39 WBC MCV MCH MCHC RDW Lymph % (Auto) [place] % (Auto) Eos % (Auto) Lymph # (Auto) [place] # (Auto) Eos # (Auto) Baso # (Auto) Seg Neutrophils % Seg Neuts % (Manual) Lymphocytes % (Manual) Seg Neutrophils # Seg Neutrophils # Man Lymphocytes # (Manual) D-Dimer ABG pH POC ABG pCO2 POC ABG pO2 ABG pO2 ABG HCO3 ABG O2 Saturation ABG Base Excess ABG Oxyhemoglobin ABG Sodium ABG Chloride ABG Glucose Oxyhemoglobin Carboxyhemoglobin Sodium Potassium Chloride Carbon Dioxide BUN Creatinine Glucose POC Glucose 125 H 201 H 241 H Hemoglobin A1c Magnesium Ferritin AST ALT Alkaline Phosphatase Lactate Dehydrogenase C-Reactive Protein Total Protein Albumin Arterial Blood Glucose Coronavirus (PCR) 05/15/21 05/16/2105/16/21 21:31 05:04 10:40 WBC MCV MCH MCHC RDW Lymph % (Auto) [place] % (Auto) Eos % (Auto) Lymph # (Auto) [place] # (Auto) Eos # (Auto) Baso # (Auto) Seg Neutrophils % Seg Neuts % (Manual) Lymphocytes % (Manual) Seg Neutrophils # Seg Neutrophils # Man Lymphocytes # (Manual) D-Dimer ABG pH POC ABG pCO2 POC ABG pO2 ABG pO2 ABG HCO3 ABG O2 Saturation ABG Base Excess ABG Oxyhemoglobin ABG Sodium ABG Chloride ABG Glucose Oxyhemoglobin Carboxyhemoglobin Sodium Potassium Chloride Carbon Dioxide BUN Creatinine Glucose POC Glucose 234 H 123 H 231 H Hemoglobin A1c Magnesium Ferritin AST ALT Alkaline Phosphatase Lactate Dehydrogenase C-Reactive Protein Total Protein Albumin Arterial Blood Glucose Coronavirus (PCR) 05/16/21 05/16/21 05/17/21 18:23 21:29 06:20 WBC MCV MCH MCHC RDW 18.8 H Lymph % (Auto) 10.2 L [place] % (Auto) Eos % (Auto) Lymph # (Auto) 0.8 L [place] # (Auto) Eos # (Auto) Baso # (Auto) Seg Neutrophils % 85.8 H Seg Neuts % (Manual) Lymphocytes % (Manual) Seg Neutrophils # Seg Neutrophils # Man Lymphocytes # (Manual) D-Dimer ABG pH POC ABG pCO2 POC ABG pO2 ABG pO2 ABG HCO3 ABG O2 Saturation ABG Base Excess ABG Oxyhemoglobin ABG Sodium ABG Chloride ABG Glucose Oxyhemoglobin Carboxyhemoglobin Sodium Potassium Chloride Carbon Dioxide BUN Creatinine Glucose POC Glucose 266 H 234 H Hemoglobin A1c Magnesium Ferritin AST ALT Alkaline Phosphatase Lactate Dehydrogenase C-Reactive Protein Total Protein Albumin Arterial Blood Glucose Coronavirus (PCR) 05/17/21 05/17/21 05/17/21 06:20 11:06 16:36 WBC MCV MCH MCHC RDW Lymph % (Auto) [place] % (Auto) Eos % (Auto) Lymph # (Auto) [place] # (Auto) Eos # (Auto) Baso # (Auto) Seg Neutrophils % Seg Neuts % (Manual) Lymphocytes % (Manual) Seg Neutrophils # Seg Neutrophils # Man Lymphocytes # (Manual) D-Dimer ABG pH POC ABG pCO2 POC ABG pO2 ABG pO2 ABG HCO3 ABG O2 Saturation ABG Base Excess ABG Oxyhemoglobin ABG Sodium ABG Chloride ABG Glucose Oxyhemoglobin Carboxyhemoglobin Sodium Potassium Chloride Carbon Dioxide 33 H BUN Creatinine 0.2 L Glucose 101 H POC Glucose 209 H 180 H Hemoglobin A1c Magnesium Ferritin AST ALT Alkaline Phosphatase Lactate Dehydrogenase C-Reactive Protein Total Protein Albumin Arterial Blood Glucose Coronavirus (PCR) 05/17/21 05/18/21 05/18/21 21:06 12:00 15:06 WBC MCV MCH MCHC RDW Lymph % (Auto) [place] % (Auto) Eos % (Auto) Lymph # (Auto) [place] # (Auto) Eos # (Auto) Baso # (Auto) Seg Neutrophils % Seg Neuts % (Manual) Lymphocytes % (Manual) Seg Neutrophils # Seg Neutrophils # Man Lymphocytes # (Manual) D-Dimer 874.02 H ABG pH POC ABG pCO2 POC ABG pO2 ABG pO2 ABG HCO3 ABG O2 Saturation ABG Base Excess ABG Oxyhemoglobin ABG Sodium ABG Chloride ABG Glucose Oxyhemoglobin Carboxyhemoglobin Sodium Potassium Chloride Carbon Dioxide BUN Creatinine Glucose POC Glucose 256 H 139 H Hemoglobin A1c Magnesium Ferritin AST ALT Alkaline Phosphatase Lactate Dehydrogenase C-Reactive Protein Total Protein Albumin Arterial Blood Glucose Coronavirus (PCR) 05/18/21 05/18/21 05/18/21 15:06 15:06 16:08 WBC MCV MCH MCHC RDW Lymph % (Auto) [place] % (Auto) Eos % (Auto) Lymph # (Auto) [place] # (Auto) Eos # (Auto) Baso # (Auto) Seg Neutrophils % Seg Neuts % (Manual) Lymphocytes % (Manual) Seg Neutrophils # Seg Neutrophils # Man Lymphocytes # (Manual) D-Dimer ABG pH POC ABG pCO2 POC ABG pO2 ABG pO2 ABG HCO3 ABG O2 Saturation ABG Base Excess ABG Oxyhemoglobin ABG Sodium ABG Chloride ABG Glucose Oxyhemoglobin Carboxyhemoglobin Sodium Potassium Chloride Carbon Dioxide BUN Creatinine Glucose POC Glucose 178 H Hemoglobin A1c Magnesium Ferritin 289.6 H AST ALT Alkaline Phosphatase Lactate Dehydrogenase 605 H C-Reactive Protein Total Protein Albumin Arterial Blood Glucose Coronavirus (PCR) 05/18/21 05/19/21 05/19/21 21:22 11:57 15:26 WBC MCV MCH MCHC RDW Lymph % (Auto) [place] % (Auto) Eos % (Auto) Lymph # (Auto) [place] # (Auto) Eos # (Auto) Baso # (Auto) Seg Neutrophils % Seg Neuts % (Manual) Lymphocytes % (Manual) Seg Neutrophils # Seg Neutrophils # Man Lymphocytes # (Manual) D-Dimer ABG pH POC ABG pCO2 POC ABG pO2 ABG pO2 ABG HCO3 ABG O2 Saturation ABG Base Excess ABG Oxyhemoglobin ABG Sodium ABG Chloride ABG Glucose Oxyhemoglobin Carboxyhemoglobin Sodium Potassium Chloride Carbon Dioxide BUN Creatinine Glucose POC Glucose 241 H 201 H 209 H Hemoglobin A1c Magnesium Ferritin AST ALT Alkaline Phosphatase Lactate Dehydrogenase C-Reactive Protein Total Protein Albumin Arterial Blood Glucose Coronavirus (PCR) 05/19/21 05/20/21 05/20/21 20:59 07:38 08:01 WBC MCV MCH MCHC RDW 19.7 H Lymph % (Auto) 8.3 L [place] % (Auto) Eos % (Auto) Lymph # (Auto) 0.8 L [place] # (Auto) Eos # (Auto) Baso # (Auto) Seg Neutrophils % 88.6 H Seg Neuts % (Manual) Lymphocytes % (Manual) Seg Neutrophils # 8.4 H Seg Neutrophils # Man Lymphocytes # (Manual) D-Dimer ABG pH POC ABG pCO2 POC ABG pO2 ABG pO2 ABG HCO3 ABG O2 Saturation ABG Base Excess ABG Oxyhemoglobin ABG Sodium ABG Chloride ABG Glucose Oxyhemoglobin Carboxyhemoglobin Sodium Potassium Chloride Carbon Dioxide BUN Creatinine Glucose POC Glucose 226 H 130 H Hemoglobin A1c Magnesium Ferritin AST ALT Alkaline Phosphatase Lactate Dehydrogenase C-Reactive Protein Total Protein Albumin Arterial Blood Glucose Coronavirus (PCR) 05/20/21 05/20/21 05/20/21 08:01 11:00 16:43 WBC MCV MCH MCHC RDW Lymph % (Auto) [place] % (Auto) Eos % (Auto) Lymph # (Auto) [place] # (Auto) Eos # (Auto) Baso # (Auto) Seg Neutrophils % Seg Neuts % (Manual) Lymphocytes % (Manual) Seg Neutrophils # Seg Neutrophils # Man Lymphocytes # (Manual) D-Dimer ABG pH POC ABG pCO2 POC ABG pO2 ABG pO2 ABG HCO3 ABG O2 Saturation ABG Base Excess ABG Oxyhemoglobin ABG Sodium ABG Chloride ABG Glucose Oxyhemoglobin Carboxyhemoglobin Sodium Potassium Chloride Carbon Dioxide BUN 18 H Creatinine 0.2 L Glucose 132 H POC Glucose 237 H 240 H Hemoglobin A1c Magnesium Ferritin AST ALT Alkaline Phosphatase Lactate Dehydrogenase C-Reactive Protein Total Protein Albumin Arterial Blood Glucose Coronavirus (PCR) 05/20/21 05/21/21 05/21/21 21:21 07:35 11:32 WBC MCV MCH MCHC RDW Lymph % (Auto) [place] % (Auto) Eos % (Auto) Lymph # (Auto) [place] # (Auto) Eos # (Auto) Baso # (Auto) Seg Neutrophils % Seg Neuts % (Manual) Lymphocytes % (Manual) Seg Neutrophils # Seg Neutrophils # Man Lymphocytes # (Manual) D-Dimer ABG pH POC ABG pCO2 POC ABG pO2 ABG pO2 ABG HCO3 ABG O2 Saturation ABG Base Excess ABG Oxyhemoglobin ABG Sodium ABG Chloride ABG Glucose Oxyhemoglobin Carboxyhemoglobin Sodium Potassium Chloride Carbon Dioxide BUN Creatinine Glucose POC Glucose 241 H 162 H 171 H Hemoglobin A1c Magnesium Ferritin AST ALT Alkaline Phosphatase Lactate Dehydrogenase C-Reactive Protein Total Protein Albumin Arterial Blood Glucose Coronavirus (PCR) 05/21/21 05/21/21 05/22/21 16:22 20:43 05:14 WBC MCV MCH MCHC RDW Lymph % (Auto) [place] % (Auto) Eos % (Auto) Lymph # (Auto) [place] # (Auto) Eos # (Auto) Baso # (Auto) Seg Neutrophils % Seg Neuts % (Manual) Lymphocytes % (Manual) Seg Neutrophils # Seg Neutrophils # Man Lymphocytes # (Manual) D-Dimer ABG pH POC ABG pCO2 POC ABG pO2 ABG pO2 ABG HCO3 ABG O2 Saturation ABG Base Excess ABG Oxyhemoglobin ABG Sodium ABG Chloride ABG Glucose Oxyhemoglobin Carboxyhemoglobin Sodium Potassium Chloride Carbon Dioxide BUN Creatinine Glucose POC Glucose 244 H 299 H 140 H Hemoglobin A1c Magnesium Ferritin AST ALT Alkaline Phosphatase Lactate Dehydrogenase C-Reactive Protein Total Protein Albumin Arterial Blood Glucose Coronavirus (PCR) 05/22/21 05/22/21 05/22/21 08:45 11:54 16:15 WBC MCV MCH MCHC RDW Lymph % (Auto) [place] % (Auto) Eos % (Auto) Lymph # (Auto) [place] # (Auto) Eos # (Auto) Baso # (Auto) Seg Neutrophils % Seg Neuts % (Manual) Lymphocytes % (Manual) Seg Neutrophils # Seg Neutrophils # Man Lymphocytes # (Manual) D-Dimer ABG pH POC ABG pCO2 POC ABG pO2 ABG pO2 ABG HCO3 ABG O2 Saturation ABG Base Excess ABG Oxyhemoglobin ABG Sodium ABG Chloride ABG Glucose Oxyhemoglobin Carboxyhemoglobin Sodium Potassium Chloride Carbon Dioxide BUN Creatinine Glucose POC Glucose 133 H 265 H 221 H Hemoglobin A1c Magnesium Ferritin AST ALT Alkaline Phosphatase Lactate Dehydrogenase C-Reactive Protein Total Protein Albumin Arterial Blood Glucose Coronavirus (PCR) 05/22/21 05/23/21 05/23/21 21:43 08:20 09:50 WBC MCV MCH MCHC RDW Lymph % (Auto) [place] % (Auto) Eos % (Auto) Lymph # (Auto) [place] # (Auto) Eos # (Auto) Baso # (Auto) Seg Neutrophils % Seg Neuts % (Manual) Lymphocytes % (Manual) Seg Neutrophils # Seg Neutrophils # Man Lymphocytes # (Manual) D-Dimer 910.38 H ABG pH POC ABG pCO2 POC ABG pO2 ABG pO2 ABG HCO3 ABG O2 Saturation ABG Base Excess ABG Oxyhemoglobin ABG Sodium ABG Chloride ABG Glucose Oxyhemoglobin Carboxyhemoglobin Sodium Potassium Chloride Carbon Dioxide BUN Creatinine Glucose POC Glucose 262 H 140 H Hemoglobin A1c Magnesium Ferritin AST ALT Alkaline Phosphatase Lactate Dehydrogenase C-Reactive Protein Total Protein Albumin Arterial Blood Glucose Coronavirus (PCR) 05/23/21 05/23/21 05/23/21 09:50 09:50 10:52 WBC MCV MCH MCHC RDW Lymph % (Auto) [place] % (Auto) Eos % (Auto) Lymph # (Auto) [place] # (Auto) Eos # (Auto) Baso # (Auto) Seg Neutrophils % Seg Neuts % (Manual) Lymphocytes % (Manual) Seg Neutrophils # Seg Neutrophils # Man Lymphocytes # (Manual) D-Dimer ABG pH POC ABG pCO2 POC ABG pO2 ABG pO2 ABG HCO3 ABG O2 Saturation ABG Base Excess ABG Oxyhemoglobin ABG Sodium ABG Chloride ABG Glucose Oxyhemoglobin Carboxyhemoglobin Sodium Potassium Chloride Carbon Dioxide BUN Creatinine Glucose POC Glucose 241 H Hemoglobin A1c Magnesium Ferritin 244.9 H AST ALT Alkaline Phosphatase Lactate Dehydrogenase 584 H C-Reactive Protein Total Protein Albumin Arterial Blood Glucose Coronavirus (PCR) 05/23/21 05/23/21 05/24/21 17:24 21:52 07:44 WBC MCV MCH MCHC RDW Lymph % (Auto) [place] % (Auto) Eos % (Auto) Lymph # (Auto) [place] # (Auto) Eos # (Auto) Baso # (Auto) Seg Neutrophils % Seg Neuts % (Manual) Lymphocytes % (Manual) Seg Neutrophils # Seg Neutrophils # Man Lymphocytes # (Manual) D-Dimer ABG pH POC ABG pCO2 POC ABG pO2 ABG pO2 ABG HCO3 ABG O2 Saturation ABG Base Excess ABG Oxyhemoglobin ABG Sodium ABG Chloride ABG Glucose Oxyhemoglobin Carboxyhemoglobin Sodium Potassium Chloride Carbon Dioxide BUN Creatinine Glucose POC Glucose 197 H 289 H 161 H Hemoglobin A1c Magnesium Ferritin AST ALT Alkaline Phosphatase Lactate Dehydrogenase C-Reactive Protein Total Protein Albumin Arterial Blood Glucose Coronavirus (PCR) 05/24/21 05/24/21 05/24/21 11:17 17:51 21:26 WBC MCV MCH MCHC RDW Lymph % (Auto) [place] % (Auto) Eos % (Auto) Lymph # (Auto) [place] # (Auto) Eos # (Auto) Baso # (Auto) Seg Neutrophils % Seg Neuts % (Manual) Lymphocytes % (Manual) Seg Neutrophils # Seg Neutrophils # Man Lymphocytes # (Manual) D-Dimer ABG pH POC ABG pCO2 POC ABG pO2 ABG pO2 ABG HCO3 ABG O2 Saturation ABG Base Excess ABG Oxyhemoglobin ABG Sodium ABG Chloride ABG Glucose Oxyhemoglobin Carboxyhemoglobin Sodium Potassium Chloride Carbon Dioxide BUN Creatinine Glucose POC Glucose 308 H 175 H 198 H Hemoglobin A1c Magnesium Ferritin AST ALT Alkaline Phosphatase Lactate Dehydrogenase C-Reactive Protein Total Protein Albumin Arterial Blood Glucose Coronavirus (PCR) 05/25/21 05/25/21 05/25/21 08:14 11:13 17:13 WBC MCV MCH MCHC RDW Lymph % (Auto) [place] % (Auto) Eos % (Auto) Lymph # (Auto) [place] # (Auto) Eos # (Auto) Baso # (Auto) Seg Neutrophils % Seg Neuts % (Manual) Lymphocytes % (Manual) Seg Neutrophils # Seg Neutrophils # Man Lymphocytes # (Manual) D-Dimer ABG pH POC ABG pCO2 POC ABG pO2 ABG pO2 ABG HCO3 ABG O2 Saturation ABG Base Excess ABG Oxyhemoglobin ABG Sodium ABG Chloride ABG Glucose Oxyhemoglobin Carboxyhemoglobin Sodium Potassium Chloride Carbon Dioxide BUN Creatinine Glucose POC Glucose 203 H 339 H 235 H Hemoglobin A1c Magnesium Ferritin AST ALT Alkaline Phosphatase Lactate Dehydrogenase C-Reactive Protein Total Protein Albumin Arterial Blood Glucose Coronavirus (PCR) 05/25/21 05/26/21 05/26/21 21:03 07:33 11:19 WBC MCV MCH MCHC RDW Lymph % (Auto) [place] % (Auto) Eos % (Auto) Lymph # (Auto) [place] # (Auto) Eos # (Auto) Baso # (Auto) Seg Neutrophils % Seg Neuts % (Manual) Lymphocytes % (Manual) Seg Neutrophils # Seg Neutrophils # Man Lymphocytes # (Manual) D-Dimer ABG pH POC ABG pCO2 POC ABG pO2 ABG pO2 ABG HCO3 ABG O2 Saturation ABG Base Excess ABG Oxyhemoglobin ABG Sodium ABG Chloride ABG Glucose Oxyhemoglobin Carboxyhemoglobin Sodium Potassium Chloride Carbon Dioxide BUN Creatinine Glucose POC Glucose 263 H 156 H 288 H Hemoglobin A1c Magnesium Ferritin AST ALT Alkaline Phosphatase Lactate Dehydrogenase C-Reactive Protein Total Protein Albumin Arterial Blood Glucose Coronavirus (PCR) 05/26/21 05/26/21 05/27/21 16:26 20:55 07:38 WBC MCV MCH MCHC RDW Lymph % (Auto) [place] % (Auto) Eos % (Auto) Lymph # (Auto) [place] # (Auto) Eos # (Auto) Baso # (Auto) Seg Neutrophils % Seg Neuts % (Manual) Lymphocytes % (Manual) Seg Neutrophils # Seg Neutrophils # Man Lymphocytes # (Manual) D-Dimer ABG pH POC ABG pCO2 POC ABG pO2 ABG pO2 ABG HCO3 ABG O2 Saturation ABG Base Excess ABG Oxyhemoglobin ABG Sodium ABG Chloride ABG Glucose Oxyhemoglobin Carboxyhemoglobin Sodium Potassium Chloride Carbon Dioxide BUN Creatinine Glucose POC Glucose 286 H 293 H 115 H Hemoglobin A1c Magnesium Ferritin AST ALT Alkaline Phosphatase Lactate Dehydrogenase C-Reactive Protein Total Protein Albumin Arterial Blood Glucose Coronavirus (PCR) 05/27/21 05/27/21 05/27/21 11:46 15:58 21:02 WBC MCV MCH MCHC RDW Lymph % (Auto) [place] % (Auto) Eos % (Auto) Lymph # (Auto) [place] # (Auto) Eos # (Auto) Baso # (Auto) Seg Neutrophils % Seg Neuts % (Manual) Lymphocytes % (Manual) Seg Neutrophils # Seg Neutrophils # Man Lymphocytes # (Manual) D-Dimer ABG pH POC ABG pCO2 POC ABG pO2 ABG pO2 ABG HCO3 ABG O2 Saturation ABG Base Excess ABG Oxyhemoglobin ABG Sodium ABG Chloride ABG Glucose Oxyhemoglobin Carboxyhemoglobin Sodium Potassium Chloride Carbon Dioxide BUN Creatinine Glucose POC Glucose 260 H 318 H 246 H Hemoglobin A1c Magnesium Ferritin AST ALT Alkaline Phosphatase Lactate Dehydrogenase C-Reactive Protein Total Protein Albumin Arterial Blood Glucose Coronavirus (PCR) 05/28/21 05/28/21 05/28/21 07:34 11:31 16:36 WBC MCV MCH MCHC RDW Lymph % (Auto) [place] % (Auto) Eos % (Auto) Lymph # (Auto) [place] # (Auto) Eos # (Auto) Baso # (Auto) Seg Neutrophils % Seg Neuts % (Manual) Lymphocytes % (Manual) Seg Neutrophils # Seg Neutrophils # Man Lymphocytes # (Manual) D-Dimer ABG pH POC ABG pCO2 POC ABG pO2 ABG pO2 ABG HCO3 ABG O2 Saturation ABG Base Excess ABG Oxyhemoglobin ABG Sodium ABG Chloride ABG Glucose Oxyhemoglobin Carboxyhemoglobin Sodium Potassium Chloride Carbon Dioxide BUN Creatinine Glucose POC Glucose 185 H 297 H 183 H Hemoglobin A1c Magnesium Ferritin AST ALT Alkaline Phosphatase Lactate Dehydrogenase C-Reactive Protein Total Protein Albumin Arterial Blood Glucose Coronavirus (PCR) 05/28/21 05/29/21 05/29/21 21:19 07:34 11:19 WBC MCV MCH MCHC RDW Lymph % (Auto) [place] % (Auto) Eos % (Auto) Lymph # (Auto) [place] # (Auto) Eos # (Auto) Baso # (Auto) Seg Neutrophils % Seg Neuts % (Manual) Lymphocytes % (Manual) Seg Neutrophils # Seg Neutrophils # Man Lymphocytes # (Manual) D-Dimer ABG pH POC ABG pCO2 POC ABG pO2 ABG pO2 ABG HCO3 ABG O2 Saturation ABG Base Excess ABG Oxyhemoglobin ABG Sodium ABG Chloride ABG Glucose Oxyhemoglobin Carboxyhemoglobin Sodium Potassium Chloride Carbon Dioxide BUN Creatinine Glucose POC Glucose 274 H 139 H 293 H Hemoglobin A1c Magnesium Ferritin AST ALT Alkaline Phosphatase Lactate Dehydrogenase C-Reactive Protein Total Protein Albumin Arterial Blood Glucose Coronavirus (PCR) 05/29/21 05/29/21 05/30/21 16:36 22:44 05:55 WBC MCV MCH MCHC RDW 21.3 H Lymph % (Auto) 8.0 L [place] % (Auto) Eos % (Auto) Lymph # (Auto) 0.6 L [place] # (Auto) Eos # (Auto) Baso # (Auto) Seg Neutrophils % 88.6 H Seg Neuts % (Manual) Lymphocytes % (Manual) Seg Neutrophils # Seg Neutrophils # Man Lymphocytes # (Manual) D-Dimer ABG pH POC ABG pCO2 POC ABG pO2 ABG pO2 ABG HCO3 ABG O2 Saturation ABG Base Excess ABG Oxyhemoglobin ABG Sodium ABG Chloride ABG Glucose Oxyhemoglobin Carboxyhemoglobin Sodium Potassium Chloride Carbon Dioxide BUN Creatinine Glucose POC Glucose 299 H 160 H Hemoglobin A1c Magnesium Ferritin AST ALT Alkaline Phosphatase Lactate Dehydrogenase C-Reactive Protein Total Protein Albumin Arterial Blood Glucose Coronavirus (PCR) 05/30/21 05/30/21 05/30/21 05:55 08:04 11:13 WBC MCV MCH MCHC RDW Lymph % (Auto) [place] % (Auto) Eos % (Auto) Lymph # (Auto) [place] # (Auto) Eos # (Auto) Baso # (Auto) Seg Neutrophils % Seg Neuts % (Manual) Lymphocytes % (Manual) Seg Neutrophils # Seg Neutrophils # Man Lymphocytes # (Manual) D-Dimer ABG pH POC ABG pCO2 POC ABG pO2 ABG pO2 ABG HCO3 ABG O2 Saturation ABG Base Excess ABG Oxyhemoglobin ABG Sodium ABG Chloride ABG Glucose Oxyhemoglobin Carboxyhemoglobin Sodium Potassium Chloride Carbon Dioxide BUN 19 H Creatinine 0.2 L Glucose 209 H POC Glucose 157 H 275 H Hemoglobin A1c Magnesium Ferritin AST ALT Alkaline Phosphatase Lactate Dehydrogenase C-Reactive Protein Total Protein Albumin Arterial Blood Glucose Coronavirus (PCR) 05/30/21 05/30/21 05/31/21 17:08 22:12 07:36 WBC MCV MCH MCHC RDW Lymph % (Auto) [place] % (Auto) Eos % (Auto) Lymph # (Auto) [place] # (Auto) Eos # (Auto) Baso # (Auto) Seg Neutrophils % Seg Neuts % (Manual) Lymphocytes % (Manual) Seg Neutrophils # Seg Neutrophils # Man Lymphocytes # (Manual) D-Dimer ABG pH POC ABG pCO2 POC ABG pO2 ABG pO2 ABG HCO3 ABG O2 Saturation ABG Base Excess ABG Oxyhemoglobin ABG Sodium ABG Chloride ABG Glucose Oxyhemoglobin Carboxyhemoglobin Sodium Potassium Chloride Carbon Dioxide BUN Creatinine Glucose POC Glucose 154 H 275 H 138 H Hemoglobin A1c Magnesium Ferritin AST ALT Alkaline Phosphatase Lactate Dehydrogenase C-Reactive Protein Total Protein Albumin Arterial Blood Glucose Coronavirus (PCR) 05/31/21 05/31/21 05/31/21 11:17 16:55 21:25 WBC MCV MCH MCHC RDW Lymph % (Auto) [place] % (Auto) Eos % (Auto) Lymph # (Auto) [place] # (Auto) Eos # (Auto) Baso # (Auto) Seg Neutrophils % Seg Neuts % (Manual) Lymphocytes % (Manual) Seg Neutrophils # Seg Neutrophils # Man Lymphocytes # (Manual) D-Dimer ABG pH POC ABG pCO2 POC ABG pO2 ABG pO2 ABG HCO3 ABG O2 Saturation ABG Base Excess ABG Oxyhemoglobin ABG Sodium ABG Chloride ABG Glucose Oxyhemoglobin Carboxyhemoglobin Sodium Potassium Chloride Carbon Dioxide BUN Creatinine Glucose POC Glucose 258 H 215 H 318 H Hemoglobin A1c Magnesium Ferritin AST ALT Alkaline Phosphatase Lactate Dehydrogenase C-Reactive Protein Total Protein Albumin Arterial Blood Glucose Coronavirus (PCR) 06/01/21 06/01/21 06/01/21 07:23 11:38 16:52 WBC MCV MCH MCHC RDW Lymph % (Auto) [place] % (Auto) Eos % (Auto) Lymph # (Auto) [place] # (Auto) Eos # (Auto) Baso # (Auto) Seg Neutrophils % Seg Neuts % (Manual) Lymphocytes % (Manual) Seg Neutrophils # Seg Neutrophils # Man Lymphocytes # (Manual) D-Dimer ABG pH POC ABG pCO2 POC ABG pO2 ABG pO2 ABG HCO3 ABG O2 Saturation ABG Base Excess ABG Oxyhemoglobin ABG Sodium ABG Chloride ABG Glucose Oxyhemoglobin Carboxyhemoglobin Sodium Potassium Chloride Carbon Dioxide BUN Creatinine Glucose POC Glucose 157 H 259 H 150 H Hemoglobin A1c Magnesium Ferritin AST ALT Alkaline Phosphatase Lactate Dehydrogenase C-Reactive Protein Total Protein Albumin Arterial Blood Glucose Coronavirus (PCR) 06/01/21 06/02/21 06/02/21 23:16 05:34 05:34 WBC MCV MCH MCHC RDW 21.3 H Lymph % (Auto) 9.6 L [place] % (Auto) Eos % (Auto) Lymph # (Auto) 0.6 L [place] # (Auto) Eos # (Auto) Baso # (Auto) Seg Neutrophils % 86.2 H Seg Neuts % (Manual) Lymphocytes % (Manual) Seg Neutrophils # Seg Neutrophils # Man Lymphocytes # (Manual) D-Dimer ABG pH POC ABG pCO2 POC ABG pO2 ABG pO2 ABG HCO3 ABG O2 Saturation ABG Base Excess ABG Oxyhemoglobin ABG Sodium ABG Chloride ABG Glucose Oxyhemoglobin Carboxyhemoglobin Sodium 136 L Potassium Chloride Carbon Dioxide BUN Creatinine 0.2 L Glucose 186 H POC Glucose 247 H Hemoglobin A1c Magnesium Ferritin AST ALT 69 H Alkaline Phosphatase Lactate Dehydrogenase C-Reactive Protein Total Protein 6.1 L Albumin 3.2 L Arterial Blood Glucose Coronavirus (PCR) 06/02/21 06/02/21 06/02/21 11:25 18:23 21:32 WBC MCV MCH MCHC RDW Lymph % (Auto) [place] % (Auto) Eos % (Auto) Lymph # (Auto) [place] # (Auto) Eos # (Auto) Baso # (Auto) Seg Neutrophils % Seg Neuts % (Manual) Lymphocytes % (Manual) Seg Neutrophils # Seg Neutrophils # Man Lymphocytes # (Manual) D-Dimer ABG pH POC ABG pCO2 POC ABG pO2 ABG pO2 ABG HCO3 ABG O2 Saturation ABG Base Excess ABG Oxyhemoglobin ABG Sodium ABG Chloride ABG Glucose Oxyhemoglobin Carboxyhemoglobin Sodium Potassium Chloride Carbon Dioxide BUN Creatinine Glucose POC Glucose 157 H 299 H 246 H Hemoglobin A1c Magnesium Ferritin AST ALT Alkaline Phosphatase Lactate Dehydrogenase C-Reactive Protein Total Protein Albumin Arterial Blood Glucose Coronavirus (PCR) 06/03/21 06/03/21 06/03/21 08:12 12:21 17:31 WBC MCV MCH MCHC RDW Lymph % (Auto) [place] % (Auto) Eos % (Auto) Lymph # (Auto) [place] # (Auto) Eos # (Auto) Baso # (Auto) Seg Neutrophils % Seg Neuts % (Manual) Lymphocytes % (Manual) Seg Neutrophils # Seg Neutrophils # Man Lymphocytes # (Manual) D-Dimer ABG pH POC ABG pCO2 POC ABG pO2 ABG pO2 ABG HCO3 ABG O2 Saturation ABG Base Excess ABG Oxyhemoglobin ABG Sodium ABG Chloride ABG Glucose Oxyhemoglobin Carboxyhemoglobin Sodium Potassium Chloride Carbon Dioxide BUN Creatinine Glucose POC Glucose 153 H 302 H 252 H Hemoglobin A1c Magnesium Ferritin AST ALT Alkaline Phosphatase Lactate Dehydrogenase C-Reactive Protein Total Protein Albumin Arterial Blood Glucose Coronavirus (PCR) 06/03/21 06/04/21 06/04/21 22:08 11:12 16:01 WBC MCV MCH MCHC RDW Lymph % (Auto) [place] % (Auto) Eos % (Auto) Lymph # (Auto) [place] # (Auto) Eos # (Auto) Baso # (Auto) Seg Neutrophils % Seg Neuts % (Manual) Lymphocytes % (Manual) Seg Neutrophils # Seg Neutrophils # Man Lymphocytes # (Manual) D-Dimer ABG pH POC ABG pCO2 POC ABG pO2 ABG pO2 ABG HCO3 ABG O2 Saturation ABG Base Excess ABG Oxyhemoglobin ABG Sodium ABG Chloride ABG Glucose Oxyhemoglobin Carboxyhemoglobin Sodium Potassium Chloride Carbon Dioxide BUN Creatinine Glucose POC Glucose 224 H 259 H 238 H Hemoglobin A1c Magnesium Ferritin AST ALT Alkaline Phosphatase Lactate Dehydrogenase C-Reactive Protein Total Protein Albumin Arterial Blood Glucose Coronavirus (PCR) 06/04/21 06/05/21 06/05/21 21:26 05:26 05:26 WBC MCV MCH MCHC RDW Lymph % (Auto) [place] % (Auto) Eos % (Auto) Lymph # (Auto) [place] # (Auto) Eos # (Auto) Baso # (Auto) Seg Neutrophils % Seg Neuts % (Manual) Lymphocytes % (Manual) Seg Neutrophils # Seg Neutrophils # Man Lymphocytes # (Manual) D-Dimer 488.49 H ABG pH POC ABG pCO2 POC ABG pO2 ABG pO2 ABG HCO3 ABG O2 Saturation ABG Base Excess ABG Oxyhemoglobin ABG Sodium ABG Chloride ABG Glucose Oxyhemoglobin Carboxyhemoglobin Sodium Potassium Chloride Carbon Dioxide BUN Creatinine 0.2 L Glucose 198 H POC Glucose 257 H Hemoglobin A1c Magnesium Ferritin AST ALT Alkaline Phosphatase Lactate Dehydrogenase 475 H C-Reactive Protein Total Protein Albumin Arterial Blood Glucose Coronavirus (PCR) 06/05/21 06/05/21 06/05/21 07:20 08:30 11:00 WBC MCV MCH MCHC RDW Lymph % (Auto) [place] % (Auto) Eos % (Auto) Lymph # (Auto) [place] # (Auto) Eos # (Auto) Baso # (Auto) Seg Neutrophils % Seg Neuts % (Manual) Lymphocytes % (Manual) Seg Neutrophils # Seg Neutrophils # Man Lymphocytes # (Manual) D-Dimer ABG pH POC ABG pCO2 POC ABG pO2 ABG pO2 ABG HCO3 ABG O2 Saturation ABG Base Excess ABG Oxyhemoglobin ABG Sodium ABG Chloride ABG Glucose Oxyhemoglobin Carboxyhemoglobin Sodium Potassium Chloride Carbon Dioxide BUN Creatinine Glucose POC Glucose 146 H 246 H Hemoglobin A1c Magnesium Ferritin AST ALT Alkaline Phosphatase Lactate Dehydrogenase C-Reactive Protein Total Protein Albumin Arterial Blood Glucose Coronavirus (PCR) Positive A 06/05/21 06/05/21 06/06/21 16:50 22:30 07:57 WBC MCV MCH MCHC RDW Lymph % (Auto) [place] % (Auto) Eos % (Auto) Lymph # (Auto) [place] # (Auto) Eos # (Auto) Baso # (Auto) Seg Neutrophils % Seg Neuts % (Manual) Lymphocytes % (Manual) Seg Neutrophils # Seg Neutrophils # Man Lymphocytes # (Manual) D-Dimer ABG pH POC ABG pCO2 POC ABG pO2 ABG pO2 ABG HCO3 ABG O2 Saturation ABG Base Excess ABG Oxyhemoglobin ABG Sodium ABG Chloride ABG Glucose Oxyhemoglobin Carboxyhemoglobin Sodium Potassium Chloride Carbon Dioxide BUN Creatinine Glucose POC Glucose 240 H 174 H 120 H Hemoglobin A1c Magnesium Ferritin AST ALT Alkaline Phosphatase Lactate Dehydrogenase C-Reactive Protein Total Protein Albumin Arterial Blood Glucose Coronavirus (PCR) 06/06/21 06/06/21 06/06/21 11:14 16:50 21:11 WBC MCV MCH MCHC RDW Lymph % (Auto) [place] % (Auto) Eos % (Auto) Lymph # (Auto) [place] # (Auto) Eos # (Auto) Baso # (Auto) Seg Neutrophils % Seg Neuts % (Manual) Lymphocytes % (Manual) Seg Neutrophils # Seg Neutrophils # Man Lymphocytes # (Manual) D-Dimer ABG pH POC ABG pCO2 POC ABG pO2 ABG pO2 ABG HCO3 ABG O2 Saturation ABG Base Excess ABG Oxyhemoglobin ABG Sodium ABG Chloride ABG Glucose Oxyhemoglobin Carboxyhemoglobin Sodium Potassium Chloride Carbon Dioxide BUN Creatinine Glucose POC Glucose 267 H 218 H 124 H Hemoglobin A1c Magnesium Ferritin AST ALT Alkaline Phosphatase Lactate Dehydrogenase C-Reactive Protein Total Protein Albumin Arterial Blood Glucose Coronavirus (PCR) 06/07/21 06/07/21 06/08/21 11:58 15:59 07:59 WBC MCV MCH MCHC RDW Lymph % (Auto) [place] % (Auto) Eos % (Auto) Lymph # (Auto) [place] # (Auto) Eos # (Auto) Baso # (Auto) Seg Neutrophils % Seg Neuts % (Manual) Lymphocytes % (Manual) Seg Neutrophils # Seg Neutrophils # Man Lymphocytes # (Manual) D-Dimer ABG pH POC ABG pCO2 POC ABG pO2 ABG pO2 ABG HCO3 ABG O2 Saturation ABG Base Excess ABG Oxyhemoglobin ABG Sodium ABG Chloride ABG Glucose Oxyhemoglobin Carboxyhemoglobin Sodium Potassium Chloride Carbon Dioxide BUN Creatinine Glucose POC Glucose 219 H 208 H 192 H Hemoglobin A1c Magnesium Ferritin AST ALT Alkaline Phosphatase Lactate Dehydrogenase C-Reactive Protein Total Protein Albumin Arterial Blood Glucose Coronavirus (PCR) 06/08/21 06/08/21 06/09/21 11:26 23:28 07:33 WBC MCV MCH MCHC RDW Lymph % (Auto) [place] % (Auto) Eos % (Auto) Lymph # (Auto) [place] # (Auto) Eos # (Auto) Baso # (Auto) Seg Neutrophils % Seg Neuts % (Manual) Lymphocytes % (Manual) Seg Neutrophils # Seg Neutrophils # Man Lymphocytes # (Manual) D-Dimer ABG pH POC ABG pCO2 POC ABG pO2 ABG pO2 ABG HCO3 ABG O2 Saturation ABG Base Excess ABG Oxyhemoglobin ABG Sodium ABG Chloride ABG Glucose Oxyhemoglobin Carboxyhemoglobin Sodium Potassium Chloride Carbon Dioxide BUN Creatinine Glucose POC Glucose 307 H 138 H 145 H Hemoglobin A1c Magnesium Ferritin AST ALT Alkaline Phosphatase Lactate Dehydrogenase C-Reactive Protein Total Protein Albumin Arterial Blood Glucose Coronavirus (PCR) 06/09/21 06/09/21 06/09/21 11:01 15:47 21:43 WBC MCV MCH MCHC RDW Lymph % (Auto) [place] % (Auto) Eos % (Auto) Lymph # (Auto) [place] # (Auto) Eos # (Auto) Baso # (Auto) Seg Neutrophils % Seg Neuts % (Manual) Lymphocytes % (Manual) Seg Neutrophils # Seg Neutrophils # Man Lymphocytes # (Manual) D-Dimer ABG pH POC ABG pCO2 POC ABG pO2 ABG pO2 ABG HCO3 ABG O2 Saturation ABG Base Excess ABG Oxyhemoglobin ABG Sodium ABG Chloride ABG Glucose Oxyhemoglobin Carboxyhemoglobin Sodium Potassium Chloride Carbon Dioxide BUN Creatinine Glucose POC Glucose 266 H 305 H 223 H Hemoglobin A1c Magnesium Ferritin AST ALT Alkaline Phosphatase Lactate Dehydrogenase C-Reactive Protein Total Protein Albumin Arterial Blood Glucose Coronavirus (PCR) 06/10/21 06/10/21 06/10/21 08:27 12:10 17:45 WBC MCV MCH MCHC RDW Lymph % (Auto) [place] % (Auto) Eos % (Auto) Lymph # (Auto) [place] # (Auto) Eos # (Auto) Baso # (Auto) Seg Neutrophils % Seg Neuts % (Manual) Lymphocytes % (Manual) Seg Neutrophils # Seg Neutrophils # Man Lymphocytes # (Manual) D-Dimer ABG pH POC ABG pCO2 POC ABG pO2 ABG pO2 ABG HCO3 ABG O2 Saturation ABG Base Excess ABG Oxyhemoglobin ABG Sodium ABG Chloride ABG Glucose Oxyhemoglobin Carboxyhemoglobin Sodium Potassium Chloride Carbon Dioxide BUN Creatinine Glucose POC Glucose 174 H 306 H 210 H Hemoglobin A1c Magnesium Ferritin AST ALT Alkaline Phosphatase Lactate Dehydrogenase C-Reactive Protein Total Protein Albumin Arterial Blood Glucose Coronavirus (PCR) 06/10/21 06/11/21 06/11/21 21:45 09:38 09:38 WBC MCV MCH MCHC RDW 20.9 H Lymph % (Auto) [place] % (Auto) Eos % (Auto) Lymph # (Auto) [place] # (Auto) Eos # (Auto) Baso # (Auto) Seg Neutrophils % Seg Neuts % (Manual) Lymphocytes % (Manual) Seg Neutrophils # Seg Neutrophils # Man Lymphocytes # (Manual) D-Dimer ABG pH POC ABG pCO2 POC ABG pO2 ABG pO2 ABG HCO3 ABG O2 Saturation ABG Base Excess ABG Oxyhemoglobin ABG Sodium ABG Chloride ABG Glucose Oxyhemoglobin Carboxyhemoglobin Sodium 135 L Potassium Chloride 90.8 L Carbon Dioxide 36 H BUN 29 H Creatinine 0.2 L Glucose 258 H POC Glucose 262 H Hemoglobin A1c Magnesium Ferritin AST ALT Alkaline Phosphatase Lactate Dehydrogenase C-Reactive Protein Total Protein Albumin Arterial Blood Glucose Coronavirus (PCR) 06/11/21 06/11/21 06/11/21 11:20 15:49 22:57 WBC MCV MCH MCHC RDW Lymph % (Auto) [place] % (Auto) Eos % (Auto) Lymph # (Auto) [place] # (Auto) Eos # (Auto) Baso # (Auto) Seg Neutrophils % Seg Neuts % (Manual) Lymphocytes % (Manual) Seg Neutrophils # Seg Neutrophils # Man Lymphocytes # (Manual) D-Dimer ABG pH POC ABG pCO2 POC ABG pO2 ABG pO2 ABG HCO3 ABG O2 Saturation ABG Base Excess ABG Oxyhemoglobin ABG Sodium ABG Chloride ABG Glucose Oxyhemoglobin Carboxyhemoglobin Sodium Potassium Chloride Carbon Dioxide BUN Creatinine Glucose POC Glucose 269 H 206 H 211 H Hemoglobin A1c Magnesium Ferritin AST ALT Alkaline Phosphatase Lactate Dehydrogenase C-Reactive Protein Total Protein Albumin Arterial Blood Glucose Coronavirus (PCR) 06/12/21 06/12/21 06/12/21 08:07 11:24 18:08 WBC MCV MCH MCHC RDW Lymph % (Auto) [place] % (Auto) Eos % (Auto) Lymph # (Auto) [place] # (Auto) Eos # (Auto) Baso # (Auto) Seg Neutrophils % Seg Neuts % (Manual) Lymphocytes % (Manual) Seg Neutrophils # Seg Neutrophils # Man Lymphocytes # (Manual) D-Dimer ABG pH POC ABG pCO2 POC ABG pO2 ABG pO2 ABG HCO3 ABG O2 Saturation ABG Base Excess ABG Oxyhemoglobin ABG Sodium ABG Chloride ABG Glucose Oxyhemoglobin Carboxyhemoglobin Sodium Potassium Chloride Carbon Dioxide BUN Creatinine Glucose POC Glucose 149 H 270 H 166 H Hemoglobin A1c Magnesium Ferritin AST ALT Alkaline Phosphatase Lactate Dehydrogenase C-Reactive Protein Total Protein Albumin Arterial Blood Glucose Coronavirus (PCR) 06/12/21 06/13/21 06/13/21 20:22 07:50 11:18 WBC MCV MCH MCHC RDW Lymph % (Auto) [place] % (Auto) Eos % (Auto) Lymph # (Auto) [place] # (Auto) Eos # (Auto) Baso # (Auto) Seg Neutrophils % Seg Neuts % (Manual) Lymphocytes % (Manual) Seg Neutrophils # Seg Neutrophils # Man Lymphocytes # (Manual) D-Dimer ABG pH POC ABG pCO2 POC ABG pO2 ABG pO2 ABG HCO3 ABG O2 Saturation ABG Base Excess ABG Oxyhemoglobin ABG Sodium ABG Chloride ABG Glucose Oxyhemoglobin Carboxyhemoglobin Sodium Potassium Chloride Carbon Dioxide BUN Creatinine Glucose POC Glucose 155 H 163 H 293 H Hemoglobin A1c Magnesium Ferritin AST ALT Alkaline Phosphatase Lactate Dehydrogenase C-Reactive Protein Total Protein Albumin Arterial Blood Glucose Coronavirus (PCR) 06/13/21 06/13/21 06/14/21 16:41 21:00 07:41 WBC MCV MCH MCHC RDW Lymph % (Auto) [place] % (Auto) Eos % (Auto) Lymph # (Auto) [place] # (Auto) Eos # (Auto) Baso # (Auto) Seg Neutrophils % Seg Neuts % (Manual) Lymphocytes % (Manual) Seg Neutrophils # Seg Neutrophils # Man Lymphocytes # (Manual) D-Dimer ABG pH POC ABG pCO2 POC ABG pO2 ABG pO2 ABG HCO3 ABG O2 Saturation ABG Base Excess ABG Oxyhemoglobin ABG Sodium ABG Chloride ABG Glucose Oxyhemoglobin Carboxyhemoglobin Sodium Potassium Chloride Carbon Dioxide BUN Creatinine Glucose POC Glucose 232 H 183 H 52 L Hemoglobin A1c Magnesium Ferritin AST ALT Alkaline Phosphatase Lactate Dehydrogenase C-Reactive Protein Total Protein Albumin Arterial Blood Glucose Coronavirus (PCR) 06/14/21 06/14/2121 11:44 17:44 21:44 WBC MCV MCH MCHC RDW Lymph % (Auto) [place] % (Auto) Eos % (Auto) Lymph # (Auto) [place] # (Auto) Eos # (Auto) Baso # (Auto) Seg Neutrophils % Seg Neuts % (Manual) Lymphocytes % (Manual) Seg Neutrophils # Seg Neutrophils # Man Lymphocytes # (Manual) D-Dimer ABG pH POC ABG pCO2 POC ABG pO2 ABG pO2 ABG HCO3 ABG O2 Saturation ABG Base Excess ABG Oxyhemoglobin ABG Sodium ABG Chloride ABG Glucose Oxyhemoglobin Carboxyhemoglobin Sodium Potassium Chloride Carbon Dioxide BUN Creatinine Glucose POC Glucose 205 H 293 H 288 H Hemoglobin A1c Magnesium Ferritin AST ALT Alkaline Phosphatase Lactate Dehydrogenase C-Reactive Protein Total Protein Albumin Arterial Blood Glucose Coronavirus (PCR) 06/15/21 06/15/21 06/15/21 08:00 08:00 11:40 WBC MCV MCH 33 H MCHC 35 H RDW 20.3 H Lymph % (Auto) [place] % (Auto) Eos % (Auto) Lymph # (Auto) [place] # (Auto) Eos # (Auto) Baso # (Auto) Seg Neutrophils % Seg Neuts % (Manual) Lymphocytes % (Manual) Seg Neutrophils # Seg Neutrophils # Man Lymphocytes # (Manual) D-Dimer ABG pH POC ABG pCO2 POC ABG pO2 ABG pO2 ABG HCO3 ABG O2 Saturation ABG Base Excess ABG Oxyhemoglobin ABG Sodium ABG Chloride ABG Glucose Oxyhemoglobin Carboxyhemoglobin Sodium Potassium 3.2 L Chloride 95.3 L Carbon Dioxide 32 H BUN 23 H Creatinine 0.2 L Glucose 103 H POC Glucose 204 H Hemoglobin A1c Magnesium Ferritin AST ALT Alkaline Phosphatase Lactate Dehydrogenase C-Reactive Protein Total Protein Albumin Arterial Blood Glucose Coronavirus (PCR) 06/15/21 06/15/21 06/16/21 16:17 22:00 11:43 WBC MCV MCH MCHC RDW Lymph % (Auto) [place] % (Auto) Eos % (Auto) Lymph # (Auto) [place] # (Auto) Eos # (Auto) Baso # (Auto) Seg Neutrophils % Seg Neuts % (Manual) Lymphocytes % (Manual) Seg Neutrophils # Seg Neutrophils # Man Lymphocytes # (Manual) D-Dimer ABG pH POC ABG pCO2 POC ABG pO2 ABG pO2 ABG HCO3 ABG O2 Saturation ABG Base Excess ABG Oxyhemoglobin ABG Sodium ABG Chloride ABG Glucose Oxyhemoglobin Carboxyhemoglobin Sodium Potassium Chloride Carbon Dioxide BUN Creatinine Glucose POC Glucose 295 H 233 H 201 H Hemoglobin A1c Magnesium Ferritin AST ALT Alkaline Phosphatase Lactate Dehydrogenase C-Reactive Protein Total Protein Albumin Arterial Blood Glucose Coronavirus (PCR) 06/16/21 06/16/21 06/17/21 17:21 21:27 07:12 WBC MCV MCH MCHC RDW Lymph % (Auto) [place] % (Auto) Eos % (Auto) Lymph # (Auto) [place] # (Auto) Eos # (Auto) Baso # (Auto) Seg Neutrophils % Seg Neuts % (Manual) Lymphocytes % (Manual) Seg Neutrophils # Seg Neutrophils # Man Lymphocytes # (Manual) D-Dimer ABG pH POC ABG pCO2 POC ABG pO2 ABG pO2 ABG HCO3 ABG O2 Saturation ABG Base Excess ABG Oxyhemoglobin ABG Sodium ABG Chloride ABG Glucose Oxyhemoglobin Carboxyhemoglobin Sodium Potassium Chloride Carbon Dioxide BUN Creatinine Glucose POC Glucose 299 H 290 H 67 L Hemoglobin A1c Magnesium Ferritin AST ALT Alkaline Phosphatase Lactate Dehydrogenase C-Reactive Protein Total Protein Albumin Arterial Blood Glucose Coronavirus (PCR) 06/17/21 06/17/21 06/17/21 11:53 17:02 22:25 WBC MCV MCH MCHC RDW Lymph % (Auto) [place] % (Auto) Eos % (Auto) Lymph # (Auto) [place] # (Auto) Eos # (Auto) Baso # (Auto) Seg Neutrophils % Seg Neuts % (Manual) Lymphocytes % (Manual) Seg Neutrophils # Seg Neutrophils # Man Lymphocytes # (Manual) D-Dimer ABG pH POC ABG pCO2 POC ABG pO2 ABG pO2 ABG HCO3 ABG O2 Saturation ABG Base Excess ABG Oxyhemoglobin ABG Sodium ABG Chloride ABG Glucose Oxyhemoglobin Carboxyhemoglobin Sodium Potassium Chloride Carbon Dioxide BUN Creatinine Glucose POC Glucose 199 H 362 H 235 H Hemoglobin A1c Magnesium Ferritin AST ALT Alkaline Phosphatase Lactate Dehydrogenase C-Reactive Protein Total Protein Albumin Arterial Blood Glucose Coronavirus (PCR) 06/18/21 06/18/21 06/18/21 08:00 11:48 16:40 WBC MCV MCH MCHC RDW Lymph % (Auto) [place] % (Auto) Eos % (Auto) Lymph # (Auto) [place] # (Auto) Eos # (Auto) Baso # (Auto) Seg Neutrophils % Seg Neuts % (Manual) Lymphocytes % (Manual) Seg Neutrophils # Seg Neutrophils # Man Lymphocytes # (Manual) D-Dimer ABG pH POC ABG pCO2 POC ABG pO2 ABG pO2 ABG HCO3 ABG O2 Saturation ABG Base Excess ABG Oxyhemoglobin ABG Sodium ABG Chloride ABG Glucose Oxyhemoglobin Carboxyhemoglobin Sodium Potassium Chloride Carbon Dioxide BUN Creatinine Glucose POC Glucose 62 L 211 H 305 H Hemoglobin A1c Magnesium Ferritin AST ALT Alkaline Phosphatase Lactate Dehydrogenase C-Reactive Protein Total Protein Albumin Arterial Blood Glucose Coronavirus (PCR) 06/18/21 06/19/21 06/19/21 21:26 07:27 11:32 WBC MCV MCH MCHC RDW Lymph % (Auto) [place] % (Auto) Eos % (Auto) Lymph # (Auto) [place] # (Auto) Eos # (Auto) Baso # (Auto) Seg Neutrophils % Seg Neuts % (Manual) Lymphocytes % (Manual) Seg Neutrophils # Seg Neutrophils # Man Lymphocytes # (Manual) D-Dimer ABG pH POC ABG pCO2 POC ABG pO2 ABG pO2 ABG HCO3 ABG O2 Saturation ABG Base Excess ABG Oxyhemoglobin ABG Sodium ABG Chloride ABG Glucose Oxyhemoglobin Carboxyhemoglobin Sodium Potassium Chloride Carbon Dioxide BUN Creatinine Glucose POC Glucose 149 H 60 L 208 H Hemoglobin A1c Magnesium Ferritin AST ALT Alkaline Phosphatase Lactate Dehydrogenase C-Reactive Protein Total Protein Albumin Arterial Blood Glucose Coronavirus (PCR) 06/19/21 06/19/21 06/20/21 16:06 22:28 07:48 WBC MCV MCH MCHC RDW Lymph % (Auto) [place] % (Auto) Eos % (Auto) Lymph # (Auto) [place] # (Auto) Eos # (Auto) Baso # (Auto) Seg Neutrophils % Seg Neuts % (Manual) Lymphocytes % (Manual) Seg Neutrophils # Seg Neutrophils # Man Lymphocytes # (Manual) D-Dimer ABG pH POC ABG pCO2 POC ABG pO2 ABG pO2 ABG HCO3 ABG O2 Saturation ABG Base Excess ABG Oxyhemoglobin ABG Sodium ABG Chloride ABG Glucose Oxyhemoglobin Carboxyhemoglobin Sodium Potassium Chloride Carbon Dioxide BUN Creatinine Glucose POC Glucose 266 H 166 H 58 L Hemoglobin A1c Magnesium Ferritin AST ALT Alkaline Phosphatase Lactate Dehydrogenase C-Reactive Protein Total Protein Albumin Arterial Blood Glucose Coronavirus (PCR) 06/20/21 06/20/21 06/20/21 09:09 11:04 16:01 WBC MCV MCH MCHC RDW Lymph % (Auto) [place] % (Auto) Eos % (Auto) Lymph # (Auto) [place] # (Auto) Eos # (Auto) Baso # (Auto) Seg Neutrophils % Seg Neuts % (Manual) Lymphocytes % (Manual) Seg Neutrophils # Seg Neutrophils # Man Lymphocytes # (Manual) D-Dimer ABG pH POC ABG pCO2 POC ABG pO2 ABG pO2 ABG HCO3 ABG O2 Saturation ABG Base Excess ABG Oxyhemoglobin ABG Sodium ABG Chloride ABG Glucose Oxyhemoglobin Carboxyhemoglobin Sodium Potassium Chloride Carbon Dioxide BUN Creatinine Glucose POC Glucose 146 H 225 H 330 H Hemoglobin A1c Magnesium Ferritin AST ALT Alkaline Phosphatase Lactate Dehydrogenase C-Reactive Protein Total Protein Albumin Arterial Blood Glucose Coronavirus (PCR) 06/20/21 06/21/21 06/21/21 20:46 06:45 06:45 WBC MCV MCH MCHC RDW 20.0 H Lymph % (Auto) [place] % (Auto) Eos % (Auto) Lymph # (Auto) [place] # (Auto) Eos # (Auto) Baso # (Auto) Seg Neutrophils % Seg Neuts % (Manual) Lymphocytes % (Manual) Seg Neutrophils # Seg Neutrophils # Man Lymphocytes # (Manual) D-Dimer ABG pH POC ABG pCO2 POC ABG pO2 ABG pO2 ABG HCO3 ABG O2 Saturation ABG Base Excess ABG Oxyhemoglobin ABG Sodium ABG Chloride ABG Glucose Oxyhemoglobin Carboxyhemoglobin Sodium Potassium 2.9 L* Chloride 95.0 L Carbon Dioxide 31 H BUN 23 H Creatinine 0.2 L Glucose 45 L POC Glucose 215 H Hemoglobin A1c Magnesium Ferritin AST ALT Alkaline Phosphatase Lactate Dehydrogenase C-Reactive Protein Total Protein Albumin Arterial Blood Glucose Coronavirus (PCR) 06/21/21 06/21/21 06/21/21 07:38 09:06 12:40 WBC MCV MCH MCHC RDW Lymph % (Auto) [place] % (Auto) Eos % (Auto) Lymph # (Auto) [place] # (Auto) Eos # (Auto) Baso # (Auto) Seg Neutrophils % Seg Neuts % (Manual) Lymphocytes % (Manual) Seg Neutrophils # Seg Neutrophils # Man Lymphocytes # (Manual) D-Dimer ABG pH POC ABG pCO2 POC ABG pO2 ABG pO2 ABG HCO3 ABG O2 Saturation ABG Base Excess ABG Oxyhemoglobin ABG Sodium ABG Chloride ABG Glucose Oxyhemoglobin Carboxyhemoglobin Sodium Potassium Chloride Carbon Dioxide BUN Creatinine Glucose POC Glucose 50 L 196 H 205 H Hemoglobin A1c Magnesium Ferritin AST ALT Alkaline Phosphatase Lactate Dehydrogenase C-Reactive Protein Total Protein Albumin Arterial Blood Glucose Coronavirus (PCR) 06/21/21 06/22/21 06/22/21 21:36 06:25 07:15 WBC MCV MCH MCHC RDW Lymph % (Auto) [place] % (Auto) Eos % (Auto) Lymph # (Auto) [place] # (Auto) Eos # (Auto) Baso # (Auto) Seg Neutrophils % Seg Neuts % (Manual) Lymphocytes % (Manual) Seg Neutrophils # Seg Neutrophils # Man Lymphocytes # (Manual) D-Dimer ABG pH POC ABG pCO2 POC ABG pO2 ABG pO2 ABG HCO3 ABG O2 Saturation ABG Base Excess ABG Oxyhemoglobin ABG Sodium ABG Chloride ABG Glucose Oxyhemoglobin Carboxyhemoglobin Sodium Potassium Chloride Carbon Dioxide BUN 20 H Creatinine 0.2 L Glucose POC Glucose 245 H 66 L Hemoglobin A1c Magnesium Ferritin AST ALT Alkaline Phosphatase Lactate Dehydrogenase C-Reactive Protein Total Protein Albumin Arterial Blood Glucose Coronavirus (PCR) 06/22/21 06/22/21 06/22/21 11:03 16:07 22:03 WBC MCV MCH MCHC RDW Lymph % (Auto) [place] % (Auto) Eos % (Auto) Lymph # (Auto) [place] # (Auto) Eos # (Auto) Baso # (Auto) Seg Neutrophils % Seg Neuts % (Manual) Lymphocytes % (Manual) Seg Neutrophils # Seg Neutrophils # Man Lymphocytes # (Manual) D-Dimer ABG pH POC ABG pCO2 POC ABG pO2 ABG pO2 ABG HCO3 ABG O2 Saturation ABG Base Excess ABG Oxyhemoglobin ABG Sodium ABG Chloride ABG Glucose Oxyhemoglobin Carboxyhemoglobin Sodium Potassium Chloride Carbon Dioxide BUN Creatinine Glucose POC Glucose 184 H 326 H 138 H Hemoglobin A1c Magnesium Ferritin AST ALT Alkaline Phosphatase Lactate Dehydrogenase C-Reactive Protein Total Protein Albumin Arterial Blood Glucose Coronavirus (PCR) 06/23/21 06/23/21 06/23/21 07:19 10:34 16:35 WBC MCV MCH MCHC RDW Lymph % (Auto) [place] % (Auto) Eos % (Auto) Lymph # (Auto) [place] # (Auto) Eos # (Auto) Baso # (Auto) Seg Neutrophils % Seg Neuts % (Manual) Lymphocytes % (Manual) Seg Neutrophils # Seg Neutrophils # Man Lymphocytes # (Manual) D-Dimer ABG pH POC ABG pCO2 POC ABG pO2 ABG pO2 ABG HCO3 ABG O2 Saturation ABG Base Excess ABG Oxyhemoglobin ABG Sodium ABG Chloride ABG Glucose Oxyhemoglobin Carboxyhemoglobin Sodium Potassium Chloride Carbon Dioxide BUN Creatinine Glucose POC Glucose 69 L 218 H 326 H Hemoglobin A1c Magnesium Ferritin AST ALT Alkaline Phosphatase Lactate Dehydrogenase C-Reactive Protein Total Protein Albumin Arterial Blood Glucose Coronavirus (PCR) 06/23/21 06/24/21 06/24/21 22:44 11:41 16:54 WBC MCV MCH MCHC RDW Lymph % (Auto) [place] % (Auto) Eos % (Auto) Lymph # (Auto) [place] # (Auto) Eos # (Auto) Baso # (Auto) Seg Neutrophils % Seg Neuts % (Manual) Lymphocytes % (Manual) Seg Neutrophils # Seg Neutrophils # Man Lymphocytes # (Manual) D-Dimer ABG pH POC ABG pCO2 POC ABG pO2 ABG pO2 ABG HCO3 ABG O2 Saturation ABG Base Excess ABG Oxyhemoglobin ABG Sodium ABG Chloride ABG Glucose Oxyhemoglobin Carboxyhemoglobin Sodium Potassium Chloride Carbon Dioxide BUN Creatinine Glucose POC Glucose 252 H 217 H 357 H Hemoglobin A1c Magnesium Ferritin AST ALT Alkaline Phosphatase Lactate Dehydrogenase C-Reactive Protein Total Protein Albumin Arterial Blood Glucose Coronavirus (PCR) 06/24/21 06/25/21 06/25/21 20:40 11:51 16:47 WBC MCV MCH MCHC RDW Lymph % (Auto) [place] % (Auto) Eos % (Auto) Lymph # (Auto) [place] # (Auto) Eos # (Auto) Baso # (Auto) Seg Neutrophils % Seg Neuts % (Manual) Lymphocytes % (Manual) Seg Neutrophils # Seg Neutrophils # Man Lymphocytes # (Manual) D-Dimer ABG pH POC ABG pCO2 POC ABG pO2 ABG pO2 ABG HCO3 ABG O2 Saturation ABG Base Excess ABG Oxyhemoglobin ABG Sodium ABG Chloride ABG Glucose Oxyhemoglobin Carboxyhemoglobin Sodium Potassium Chloride Carbon Dioxide BUN Creatinine Glucose POC Glucose 239 H 182 H 229 H Hemoglobin A1c Magnesium Ferritin AST ALT Alkaline Phosphatase Lactate Dehydrogenase C-Reactive Protein Total Protein Albumin Arterial Blood Glucose Coronavirus (PCR) 06/25/21 06/26/21 06/26/21 22:27 07:20 12:19 WBC MCV MCH MCHC RDW Lymph % (Auto) [place] % (Auto) Eos % (Auto) Lymph # (Auto) [place] # (Auto) Eos # (Auto) Baso # (Auto) Seg Neutrophils % Seg Neuts % (Manual) Lymphocytes % (Manual) Seg Neutrophils # Seg Neutrophils # Man Lymphocytes # (Manual) D-Dimer ABG pH POC ABG pCO2 POC ABG pO2 ABG pO2 ABG HCO3 ABG O2 Saturation ABG Base Excess ABG Oxyhemoglobin ABG Sodium ABG Chloride ABG Glucose Oxyhemoglobin Carboxyhemoglobin Sodium Potassium 3.2 L D Chloride Carbon Dioxide BUN 20 H Creatinine 0.3 L Glucose POC Glucose 209 H 273 H Hemoglobin A1c Magnesium Ferritin AST ALT 77 H Alkaline Phosphatase Lactate Dehydrogenase C-Reactive Protein Total Protein Albumin 3.3 L Arterial Blood Glucose Coronavirus (PCR) 06/26/21 06/26/21 06/27/21 16:52 20:55 07:14 WBC MCV MCH MCHC RDW Lymph % (Auto) [place] % (Auto) Eos % (Auto) Lymph # (Auto) [place] # (Auto) Eos # (Auto) Baso # (Auto) Seg Neutrophils % Seg Neuts % (Manual) Lymphocytes % (Manual) Seg Neutrophils # Seg Neutrophils # Man Lymphocytes # (Manual) D-Dimer ABG pH POC ABG pCO2 POC ABG pO2 ABG pO2 ABG HCO3 ABG O2 Saturation ABG Base Excess ABG Oxyhemoglobin ABG Sodium ABG Chloride ABG Glucose Oxyhemoglobin Carboxyhemoglobin Sodium Potassium Chloride Carbon Dioxide 31 H BUN 19 H Creatinine 0.2 L Glucose 112 H POC Glucose 326 H 220 H Hemoglobin A1c Magnesium Ferritin AST ALT Alkaline Phosphatase Lactate Dehydrogenase C-Reactive Protein Total Protein Albumin Arterial Blood Glucose Coronavirus (PCR) 06/27/21 06/27/21 06/27/21 07:29 10:54 15:49 WBC MCV MCH MCHC RDW Lymph % (Auto) [place] % (Auto) Eos % (Auto) Lymph # (Auto) [place] # (Auto) Eos # (Auto) Baso # (Auto) Seg Neutrophils % Seg Neuts % (Manual) Lymphocytes % (Manual) Seg Neutrophils # Seg Neutrophils # Man Lymphocytes # (Manual) D-Dimer ABG pH POC ABG pCO2 POC ABG pO2 ABG pO2 ABG HCO3 ABG O2 Saturation ABG Base Excess ABG Oxyhemoglobin ABG Sodium ABG Chloride ABG Glucose Oxyhemoglobin Carboxyhemoglobin Sodium Potassium Chloride Carbon Dioxide BUN Creatinine Glucose POC Glucose 115 H 228 H 240 H Hemoglobin A1c Magnesium Ferritin AST ALT Alkaline Phosphatase Lactate Dehydrogenase C-Reactive Protein Total Protein Albumin Arterial Blood Glucose Coronavirus (PCR) 06/28/21 06/28/21 06/28/21 05:43 05:43 07:13 WBC MCV MCH 33 H MCHC RDW 19.8 H Lymph % (Auto) [place] % (Auto) Eos % (Auto) Lymph # (Auto) [place] # (Auto) Eos # (Auto) Baso # (Auto) Seg Neutrophils % Seg Neuts % (Manual) Lymphocytes % (Manual) Seg Neutrophils # Seg Neutrophils # Man Lymphocytes # (Manual) D-Dimer ABG pH POC ABG pCO2 POC ABG pO2 ABG pO2 ABG HCO3 ABG O2 Saturation ABG Base Excess ABG Oxyhemoglobin ABG Sodium ABG Chloride ABG Glucose Oxyhemoglobin Carboxyhemoglobin Sodium Potassium 3.3 L Chloride Carbon Dioxide BUN 22 H Creatinine 0.2 L Glucose POC Glucose 69 L Hemoglobin A1c Magnesium Ferritin AST ALT 63 H Alkaline Phosphatase Lactate Dehydrogenase C-Reactive Protein Total Protein Albumin 3.3 L Arterial Blood Glucose Coronavirus (PCR) 06/28/21 06/28/21 06/28/21 12:18 15:37 21:01 WBC MCV MCH MCHC RDW Lymph % (Auto) [place] % (Auto) Eos % (Auto) Lymph # (Auto) [place] # (Auto) Eos # (Auto) Baso # (Auto) Seg Neutrophils % Seg Neuts % (Manual) Lymphocytes % (Manual) Seg Neutrophils # Seg Neutrophils # Man Lymphocytes # (Manual) D-Dimer ABG pH POC ABG pCO2 POC ABG pO2 ABG pO2 ABG HCO3 ABG O2 Saturation ABG Base Excess ABG Oxyhemoglobin ABG Sodium ABG Chloride ABG Glucose Oxyhemoglobin Carboxyhemoglobin Sodium Potassium Chloride Carbon Dioxide BUN Creatinine Glucose POC Glucose 154 H 201 H 191 H Hemoglobin A1c Magnesium Ferritin AST ALT Alkaline Phosphatase Lactate Dehydrogenase C-Reactive Protein Total Protein Albumin Arterial Blood Glucose Coronavirus (PCR) 06/29/21 06/29/21 06/29/21 11:55 15:47 21:06 WBC MCV MCH MCHC RDW Lymph % (Auto) [place] % (Auto) Eos % (Auto) Lymph # (Auto) [place] # (Auto) Eos # (Auto) Baso # (Auto) Seg Neutrophils % Seg Neuts % (Manual) Lymphocytes % (Manual) Seg Neutrophils # Seg Neutrophils # Man Lymphocytes # (Manual) D-Dimer ABG pH POC ABG pCO2 POC ABG pO2 ABG pO2 ABG HCO3 ABG O2 Saturation ABG Base Excess ABG Oxyhemoglobin ABG Sodium ABG Chloride ABG Glucose Oxyhemoglobin Carboxyhemoglobin Sodium Potassium Chloride Carbon Dioxide BUN Creatinine Glucose POC Glucose 238 H 249 H 155 H Hemoglobin A1c Magnesium Ferritin AST ALT Alkaline Phosphatase Lactate Dehydrogenase C-Reactive Protein Total Protein Albumin Arterial Blood Glucose Coronavirus (PCR) 06/30/21 06/30/21 06/30/21 04:00 07:50 11:50 WBC MCV MCH MCHC RDW Lymph % (Auto) [place] % (Auto) Eos % (Auto) Lymph # (Auto) [place] # (Auto) Eos # (Auto) Baso # (Auto) Seg Neutrophils % Seg Neuts % (Manual) Lymphocytes % (Manual) Seg Neutrophils # Seg Neutrophils # Man Lymphocytes # (Manual) D-Dimer ABG pH POC ABG pCO2 POC ABG pO2 ABG pO2 ABG HCO3 ABG O2 Saturation ABG Base Excess ABG Oxyhemoglobin ABG Sodium ABG Chloride ABG Glucose Oxyhemoglobin Carboxyhemoglobin Sodium Potassium 3.5 L Chloride Carbon Dioxide BUN 18 H Creatinine 0.3 L Glucose 111 H POC Glucose 117 H 250 H Hemoglobin A1c Magnesium Ferritin AST ALT Alkaline Phosphatase Lactate Dehydrogenase C-Reactive Protein Total Protein Albumin Arterial Blood Glucose Coronavirus (PCR) 06/30/21 06/30/21 07/01/21 16:05 21:02 07:26 WBC MCV MCH MCHC RDW Lymph % (Auto) [place] % (Auto) Eos % (Auto) Lymph # (Auto) [place] # (Auto) Eos # (Auto) Baso # (Auto) Seg Neutrophils % Seg Neuts % (Manual) Lymphocytes % (Manual) Seg Neutrophils # Seg Neutrophils # Man Lymphocytes # (Manual) D-Dimer ABG pH POC ABG pCO2 POC ABG pO2 ABG pO2 ABG HCO3 ABG O2 Saturation ABG Base Excess ABG Oxyhemoglobin ABG Sodium ABG Chloride ABG Glucose Oxyhemoglobin Carboxyhemoglobin Sodium Potassium Chloride Carbon Dioxide BUN Creatinine Glucose POC Glucose 250 H 217 H 111 H Hemoglobin A1c Magnesium Ferritin AST ALT Alkaline Phosphatase Lactate Dehydrogenase C-Reactive Protein Total Protein Albumin Arterial Blood Glucose Coronavirus (PCR) 07/01/21 07/01/21 07/01/21 11:06 15:48 21:31 WBC MCV MCH MCHC RDW Lymph % (Auto) [place] % (Auto) Eos % (Auto) Lymph # (Auto) [place] # (Auto) Eos # (Auto) Baso # (Auto) Seg Neutrophils % Seg Neuts % (Manual) Lymphocytes % (Manual) Seg Neutrophils # Seg Neutrophils # Man Lymphocytes # (Manual) D-Dimer ABG pH POC ABG pCO2 POC ABG pO2 ABG pO2 ABG HCO3 ABG O2 Saturation ABG Base Excess ABG Oxyhemoglobin ABG Sodium ABG Chloride ABG Glucose Oxyhemoglobin Carboxyhemoglobin Sodium Potassium Chloride Carbon Dioxide BUN Creatinine Glucose POC Glucose 229 H 239 H 199 H Hemoglobin A1c Magnesium Ferritin AST ALT Alkaline Phosphatase Lactate Dehydrogenase C-Reactive Protein Total Protein Albumin Arterial Blood Glucose Coronavirus (PCR) 07/02/21 07/02/21 07/02/21 11:50 16:44 21:49 WBC MCV MCH MCHC RDW Lymph % (Auto) [place] % (Auto) Eos % (Auto) Lymph # (Auto) [place] # (Auto) Eos # (Auto) Baso # (Auto) Seg Neutrophils % Seg Neuts % (Manual) Lymphocytes % (Manual) Seg Neutrophils # Seg Neutrophils # Man Lymphocytes # (Manual) D-Dimer ABG pH POC ABG pCO2 POC ABG pO2 ABG pO2 ABG HCO3 ABG O2 Saturation ABG Base Excess ABG Oxyhemoglobin ABG Sodium ABG Chloride ABG Glucose Oxyhemoglobin Carboxyhemoglobin Sodium Potassium Chloride Carbon Dioxide BUN Creatinine Glucose POC Glucose 230 H 203 H 197 H Hemoglobin A1c Magnesium Ferritin AST ALT Alkaline Phosphatase Lactate Dehydrogenase C-Reactive Protein Total Protein Albumin Arterial Blood Glucose Coronavirus (PCR) 07/03/21 07/03/21 07/03/21 05:46 05:46 11:59 WBC MCV MCH MCHC RDW 19.6 H Lymph % (Auto) [place] % (Auto) Eos % (Auto) Lymph # (Auto) [place] # (Auto) Eos # (Auto) Baso # (Auto) Seg Neutrophils % Seg Neuts % (Manual) Lymphocytes % (Manual) Seg Neutrophils # Seg Neutrophils # Man Lymphocytes # (Manual) D-Dimer ABG pH POC ABG pCO2 POC ABG pO2 ABG pO2 ABG HCO3 ABG O2 Saturation ABG Base Excess ABG Oxyhemoglobin ABG Sodium ABG Chloride ABG Glucose Oxyhemoglobin Carboxyhemoglobin Sodium Potassium 3.2 L Chloride Carbon Dioxide BUN Creatinine 0.3 L Glucose POC Glucose 145 H Hemoglobin A1c Magnesium Ferritin AST ALT Alkaline Phosphatase Lactate Dehydrogenase C-Reactive Protein Total Protein Albumin Arterial Blood Glucose Coronavirus (PCR) 07/03/21 07/03/21 07/04/21 16:40 22:00 06:35 WBC MCV MCH MCHC RDW Lymph % (Auto) [place] % (Auto) Eos % (Auto) Lymph # (Auto) [place] # (Auto) Eos # (Auto) Baso # (Auto) Seg Neutrophils % Seg Neuts % (Manual) Lymphocytes % (Manual) Seg Neutrophils # Seg Neutrophils # Man Lymphocytes # (Manual) D-Dimer ABG pH POC ABG pCO2 POC ABG pO2 ABG pO2 ABG HCO3 ABG O2 Saturation ABG Base Excess ABG Oxyhemoglobin ABG Sodium ABG Chloride ABG Glucose Oxyhemoglobin Carboxyhemoglobin Sodium Potassium Chloride Carbon Dioxide BUN Creatinine 0.3 L Glucose 118 H POC Glucose 176 H 127 H Hemoglobin A1c Magnesium Ferritin AST ALT Alkaline Phosphatase Lactate Dehydrogenase C-Reactive Protein Total Protein Albumin Arterial Blood Glucose Coronavirus (PCR) 07/04/21 07/04/21 07/05/21 12:30 16:38 08:37 WBC MCV MCH MCHC RDW Lymph % (Auto) [place] % (Auto) Eos % (Auto) Lymph # (Auto) [place] # (Auto) Eos # (Auto) Baso # (Auto) Seg Neutrophils % Seg Neuts % (Manual) Lymphocytes % (Manual) Seg Neutrophils # Seg Neutrophils # Man Lymphocytes # (Manual) D-Dimer ABG pH POC ABG pCO2 POC ABG pO2 ABG pO2 ABG HCO3 ABG O2 Saturation ABG Base Excess ABG Oxyhemoglobin ABG Sodium ABG Chloride ABG Glucose Oxyhemoglobin Carboxyhemoglobin Sodium Potassium Chloride Carbon Dioxide BUN Creatinine Glucose POC Glucose 162 H 205 H 115 H Hemoglobin A1c Magnesium Ferritin AST ALT Alkaline Phosphatase Lactate Dehydrogenase C-Reactive Protein Total Protein Albumin Arterial Blood Glucose Coronavirus (PCR) 07/05/21 07/05/21 07/05/21 10:57 16:42 21:14 WBC MCV MCH MCHC RDW Lymph % (Auto) [place] % (Auto) Eos % (Auto) Lymph # (Auto) [place] # (Auto) Eos # (Auto) Baso # (Auto) Seg Neutrophils % Seg Neuts % (Manual) Lymphocytes % (Manual) Seg Neutrophils # Seg Neutrophils # Man Lymphocytes # (Manual) D-Dimer ABG pH POC ABG pCO2 POC ABG pO2 ABG pO2 ABG HCO3 ABG O2 Saturation ABG Base Excess ABG Oxyhemoglobin ABG Sodium ABG Chloride ABG Glucose Oxyhemoglobin Carboxyhemoglobin Sodium Potassium Chloride Carbon Dioxide BUN Creatinine Glucose POC Glucose 151 H 184 H 130 H Hemoglobin A1c Magnesium Ferritin AST ALT Alkaline Phosphatase Lactate Dehydrogenase C-Reactive Protein Total Protein Albumin Arterial Blood Glucose Coronavirus (PCR) 07/06/21 07/06/21 07/06/21 07:31 11:49 16:46 WBC MCV MCH MCHC RDW Lymph % (Auto) [place] % (Auto) Eos % (Auto) Lymph # (Auto) [place] # (Auto) Eos # (Auto) Baso # (Auto) Seg Neutrophils % Seg Neuts % (Manual) Lymphocytes % (Manual) Seg Neutrophils # Seg Neutrophils # Man Lymphocytes # (Manual) D-Dimer ABG pH POC ABG pCO2 POC ABG pO2 ABG pO2 ABG HCO3 ABG O2 Saturation ABG Base Excess ABG Oxyhemoglobin ABG Sodium ABG Chloride ABG Glucose Oxyhemoglobin Carboxyhemoglobin Sodium Potassium Chloride Carbon Dioxide BUN Creatinine Glucose POC Glucose 106 H 173 H 205 H Hemoglobin A1c Magnesium Ferritin AST ALT Alkaline Phosphatase Lactate Dehydrogenase C-Reactive Protein Total Protein Albumin Arterial Blood Glucose Coronavirus (PCR) 07/06/21 07/07/21 07/07/21 21:38 06:00 06:00 WBC 16.1 H MCV MCH MCHC RDW 18.8 H Lymph % (Auto) [place] % (Auto) Eos % (Auto) Lymph # (Auto) [place] # (Auto) 1.1 H Eos # (Auto) Baso # (Auto) 0.2 H Seg Neutrophils % 74.9 H Seg Neuts % (Manual) Lymphocytes % (Manual) Seg Neutrophils # 12.1 H Seg Neutrophils # Man Lymphocytes # (Manual) D-Dimer ABG pH POC ABG pCO2 POC ABG pO2 ABG pO2 ABG HCO3 ABG O2 Saturation ABG Base Excess ABG Oxyhemoglobin ABG Sodium ABG Chloride ABG Glucose Oxyhemoglobin Carboxyhemoglobin Sodium Potassium 3.5 L D Chloride Carbon Dioxide BUN 6 L Creatinine < 0.2 L Glucose 106 H POC Glucose 120 H Hemoglobin A1c Magnesium Ferritin AST ALT Alkaline Phosphatase Lactate Dehydrogenase C-Reactive Protein Total Protein Albumin Arterial Blood Glucose Coronavirus (PCR) 07/07/21 07/07/21 07/07/21 07:10 11:53 15:53 WBC MCV MCH MCHC RDW Lymph % (Auto) [place] % (Auto) Eos % (Auto) Lymph # (Auto) [place] # (Auto) Eos # (Auto) Baso # (Auto) Seg Neutrophils % Seg Neuts % (Manual) Lymphocytes % (Manual) Seg Neutrophils # Seg Neutrophils # Man Lymphocytes # (Manual) D-Dimer ABG pH POC ABG pCO2 POC ABG pO2 ABG pO2 ABG HCO3 ABG O2 Saturation ABG Base Excess ABG Oxyhemoglobin ABG Sodium ABG Chloride ABG Glucose Oxyhemoglobin Carboxyhemoglobin Sodium Potassium Chloride Carbon Dioxide BUN Creatinine Glucose POC Glucose 132 H 169 H 242 H Hemoglobin A1c Magnesium Ferritin AST ALT Alkaline Phosphatase Lactate Dehydrogenase C-Reactive Protein Total Protein Albumin Arterial Blood Glucose Coronavirus (PCR) 07/07/21 07/08/21 07/08/21 21:41 08:09 12:20 WBC MCV MCH MCHC RDW Lymph % (Auto) [place] % (Auto) Eos % (Auto) Lymph # (Auto) [place] # (Auto) Eos # (Auto) Baso # (Auto) Seg Neutrophils % Seg Neuts % (Manual) Lymphocytes % (Manual) Seg Neutrophils # Seg Neutrophils # Man Lymphocytes # (Manual) D-Dimer ABG pH POC ABG pCO2 POC ABG pO2 ABG pO2 ABG HCO3 ABG O2 Saturation ABG Base Excess ABG Oxyhemoglobin ABG Sodium ABG Chloride ABG Glucose Oxyhemoglobin Carboxyhemoglobin Sodium Potassium Chloride Carbon Dioxide BUN Creatinine Glucose POC Glucose 128 H 132 H 179 H Hemoglobin A1c Magnesium Ferritin AST ALT Alkaline Phosphatase Lactate Dehydrogenase C-Reactive Protein Total Protein Albumin Arterial Blood Glucose Coronavirus (PCR) 07/08/21 07/08/21 07/08/21 16:37 21:45 22:44 WBC MCV MCH MCHC RDW Lymph % (Auto) [place] % (Auto) Eos % (Auto) Lymph # (Auto) [place] # (Auto) Eos # (Auto) Baso # (Auto) Seg Neutrophils % Seg Neuts % (Manual) Lymphocytes % (Manual) Seg Neutrophils # Seg Neutrophils # Man Lymphocytes # (Manual) D-Dimer ABG pH POC ABG pCO2 POC ABG pO2 ABG pO2 ABG HCO3 ABG O2 Saturation ABG Base Excess ABG Oxyhemoglobin ABG Sodium ABG Chloride ABG Glucose Oxyhemoglobin Carboxyhemoglobin Sodium Potassium Chloride Carbon Dioxide BUN Creatinine Glucose POC Glucose 192 H 51 L 137 H Hemoglobin A1c Magnesium Ferritin AST ALT Alkaline Phosphatase Lactate Dehydrogenase C-Reactive Protein Total Protein Albumin Arterial Blood Glucose Coronavirus (PCR) 07/09/21 07/09/21 07/09/21 04:45 04:45 04:45 WBC MCV MCH MCHC RDW 18.3 H Lymph % (Auto) [place] % (Auto) Eos % (Auto) Lymph # (Auto) [place] # (Auto) Eos # (Auto) Baso # (Auto) Seg Neutrophils % Seg Neuts % (Manual) 82.0 H Lymphocytes % (Manual) 13.0 L Seg Neutrophils # Seg Neutrophils # Man 7.8 H Lymphocytes # (Manual) D-Dimer 638.35 H ABG pH POC ABG pCO2 POC ABG pO2 ABG pO2 ABG HCO3 ABG O2 Saturation ABG Base Excess ABG Oxyhemoglobin ABG Sodium ABG Chloride ABG Glucose Oxyhemoglobin Carboxyhemoglobin Sodium Potassium Chloride 96.9 L Carbon Dioxide 35 H BUN Creatinine 0.2 L Glucose 135 H POC Glucose Hemoglobin A1c Magnesium Ferritin AST ALT Alkaline Phosphatase Lactate Dehydrogenase C-Reactive Protein 4.30 H Total Protein Albumin Arterial Blood Glucose Coronavirus (PCR) 07/09/21 07/09/21 07/09/21 05:19 07:36 11:16 WBC MCV MCH MCHC RDW Lymph % (Auto) [place] % (Auto) Eos % (Auto) Lymph # (Auto) [place] # (Auto) Eos # (Auto) Baso # (Auto) Seg Neutrophils % Seg Neuts % (Manual) Lymphocytes % (Manual) Seg Neutrophils # Seg Neutrophils # Man Lymphocytes # (Manual) D-Dimer ABG pH POC ABG pCO2 POC ABG pO2 ABG pO2 ABG HCO3 ABG O2 Saturation ABG Base Excess ABG Oxyhemoglobin ABG Sodium ABG Chloride ABG Glucose Oxyhemoglobin Carboxyhemoglobin Sodium Potassium Chloride Carbon Dioxide BUN Creatinine Glucose POC Glucose 135 H 148 H 212 H Hemoglobin A1c Magnesium Ferritin AST ALT Alkaline Phosphatase Lactate Dehydrogenase C-Reactive Protein Total Protein Albumin Arterial Blood Glucose Coronavirus (PCR) 07/09/21 07/09/21 07/10/21 15:21 21:12 05:40 WBC MCV MCH MCHC RDW Lymph % (Auto) [place] % (Auto) Eos % (Auto) Lymph # (Auto) [place] # (Auto) Eos # (Auto) Baso # (Auto) Seg Neutrophils % Seg Neuts % (Manual) Lymphocytes % (Manual) Seg Neutrophils # Seg Neutrophils # Man Lymphocytes # (Manual) D-Dimer ABG pH POC ABG pCO2 POC ABG pO2 ABG pO2 ABG HCO3 ABG O2 Saturation ABG Base Excess ABG Oxyhemoglobin ABG Sodium ABG Chloride ABG Glucose Oxyhemoglobin Carboxyhemoglobin Sodium Potassium 3.3 L Chloride 95.1 L Carbon Dioxide 39 H BUN Creatinine 0.2 L Glucose 122 H POC Glucose 128 H 196 H Hemoglobin A1c Magnesium Ferritin AST ALT Alkaline Phosphatase Lactate Dehydrogenase C-Reactive Protein Total Protein Albumin Arterial Blood Glucose Coronavirus (PCR) 07/10/21 07/10/21 07/10/21 07:38 11:15 16:29 WBC MCV MCH MCHC RDW Lymph % (Auto) [place] % (Auto) Eos % (Auto) Lymph # (Auto) [place] # (Auto) Eos # (Auto) Baso # (Auto) Seg Neutrophils % Seg Neuts % (Manual) Lymphocytes % (Manual) Seg Neutrophils # Seg Neutrophils # Man Lymphocytes # (Manual) D-Dimer ABG pH POC ABG pCO2 POC ABG pO2 ABG pO2 ABG HCO3 ABG O2 Saturation ABG Base Excess ABG Oxyhemoglobin ABG Sodium ABG Chloride ABG Glucose Oxyhemoglobin Carboxyhemoglobin Sodium Potassium Chloride Carbon Dioxide BUN Creatinine Glucose POC Glucose 128 H 175 H 174 H Hemoglobin A1c Magnesium Ferritin AST ALT Alkaline Phosphatase Lactate Dehydrogenase C-Reactive Protein Total Protein Albumin Arterial Blood Glucose Coronavirus (PCR) 07/10/21 07/11/21 07/11/21 20:49 05:50 12:08 WBC MCV MCH MCHC RDW Lymph % (Auto) [place] % (Auto) Eos % (Auto) Lymph # (Auto) [place] # (Auto) Eos # (Auto) Baso # (Auto) Seg Neutrophils % Seg Neuts % (Manual) Lymphocytes % (Manual) Seg Neutrophils # Seg Neutrophils # Man Lymphocytes # (Manual) D-Dimer ABG pH POC ABG pCO2 POC ABG pO2 ABG pO2 ABG HCO3 ABG O2 Saturation ABG Base Excess ABG Oxyhemoglobin ABG Sodium ABG Chloride ABG Glucose Oxyhemoglobin Carboxyhemoglobin Sodium Potassium Chloride 97.3 L Carbon Dioxide 34 H BUN Creatinine 0.2 L Glucose 109 H POC Glucose 142 H 220 H Hemoglobin A1c Magnesium Ferritin AST ALT Alkaline Phosphatase Lactate Dehydrogenase C-Reactive Protein Total Protein Albumin Arterial Blood Glucose Coronavirus (PCR) 07/11/21 07/11/21 07/12/21 17:09 21:55 07:36 WBC MCV MCH MCHC RDW Lymph % (Auto) [place] % (Auto) Eos % (Auto) Lymph # (Auto) [place] # (Auto) Eos # (Auto) Baso # (Auto) Seg Neutrophils % Seg Neuts % (Manual) Lymphocytes % (Manual) Seg Neutrophils # Seg Neutrophils # Man Lymphocytes # (Manual) D-Dimer ABG pH POC ABG pCO2 POC ABG pO2 ABG pO2 ABG HCO3 ABG O2 Saturation ABG Base Excess ABG Oxyhemoglobin ABG Sodium ABG Chloride ABG Glucose Oxyhemoglobin Carboxyhemoglobin Sodium Potassium Chloride Carbon Dioxide BUN Creatinine Glucose POC Glucose 219 H 124 H 114 H Hemoglobin A1c Magnesium Ferritin AST ALT Alkaline Phosphatase Lactate Dehydrogenase C-Reactive Protein Total Protein Albumin Arterial Blood Glucose Coronavirus (PCR) 07/12/21 07/12/21 07/12/21 11:08 15:43 22:20 WBC MCV MCH MCHC RDW Lymph % (Auto) [place] % (Auto) Eos % (Auto) Lymph # (Auto) [place] # (Auto) Eos # (Auto) Baso # (Auto) Seg Neutrophils % Seg Neuts % (Manual) Lymphocytes % (Manual) Seg Neutrophils # Seg Neutrophils # Man Lymphocytes # (Manual) D-Dimer ABG pH POC ABG pCO2 POC ABG pO2 ABG pO2 ABG HCO3 ABG O2 Saturation ABG Base Excess ABG Oxyhemoglobin ABG Sodium ABG Chloride ABG Glucose Oxyhemoglobin Carboxyhemoglobin Sodium Potassium Chloride Carbon Dioxide BUN Creatinine Glucose POC Glucose 195 H 276 H 189 H Hemoglobin A1c Magnesium Ferritin AST ALT Alkaline Phosphatase Lactate Dehydrogenase C-Reactive Protein Total Protein Albumin Arterial Blood Glucose Coronavirus (PCR) 07/13/21 07/13/21 07/13/21 08:01 08:08 10:17 WBC MCV MCH MCHC RDW Lymph % (Auto) [place] % (Auto) Eos % (Auto) Lymph # (Auto) [place] # (Auto) Eos # (Auto) Baso # (Auto) Seg Neutrophils % Seg Neuts % (Manual) Lymphocytes % (Manual) Seg Neutrophils # Seg Neutrophils # Man Lymphocytes # (Manual) D-Dimer ABG pH POC ABG pCO2 POC ABG pO2 ABG pO2 ABG HCO3 ABG O2 Saturation ABG Base Excess ABG Oxyhemoglobin ABG Sodium ABG Chloride ABG Glucose Oxyhemoglobin Carboxyhemoglobin Sodium Potassium Chloride 94.4 L Carbon Dioxide 34 H BUN Creatinine 0.3 L Glucose 149 H POC Glucose 132 H 265 H Hemoglobin A1c Magnesium Ferritin AST ALT Alkaline Phosphatase Lactate Dehydrogenase C-Reactive Protein Total Protein Albumin Arterial Blood Glucose Coronavirus (PCR) 07/13/21 07/13/21 07/14/21 17:58 21:41 07:34 WBC MCV MCH MCHC RDW Lymph % (Auto) [place] % (Auto) Eos % (Auto) Lymph # (Auto) [place] # (Auto) Eos # (Auto) Baso # (Auto) Seg Neutrophils % Seg Neuts % (Manual) Lymphocytes % (Manual) Seg Neutrophils # Seg Neutrophils # Man Lymphocytes # (Manual) D-Dimer ABG pH POC ABG pCO2 POC ABG pO2 ABG pO2 ABG HCO3 ABG O2 Saturation ABG Base Excess ABG Oxyhemoglobin ABG Sodium ABG Chloride ABG Glucose Oxyhemoglobin Carboxyhemoglobin Sodium Potassium Chloride Carbon Dioxide BUN Creatinine Glucose POC Glucose 217 H 223 H 116 H Hemoglobin A1c Magnesium Ferritin AST ALT Alkaline Phosphatase Lactate Dehydrogenase C-Reactive Protein Total Protein Albumin Arterial Blood Glucose Coronavirus (PCR) 07/14/21 07/14/21 07/14/21 10:50 17:33 20:51 WBC MCV MCH MCHC RDW Lymph % (Auto) [place] % (Auto) Eos % (Auto) Lymph # (Auto) [place] # (Auto) Eos # (Auto) Baso # (Auto) Seg Neutrophils % Seg Neuts % (Manual) Lymphocytes % (Manual) Seg Neutrophils # Seg Neutrophils # Man Lymphocytes # (Manual) D-Dimer ABG pH POC ABG pCO2 POC ABG pO2 ABG pO2 ABG HCO3 ABG O2 Saturation ABG Base Excess ABG Oxyhemoglobin ABG Sodium ABG Chloride ABG Glucose Oxyhemoglobin Carboxyhemoglobin Sodium Potassium Chloride Carbon Dioxide BUN Creatinine Glucose POC Glucose 191 H 173 H 132 H Hemoglobin A1c Magnesium Ferritin AST ALT Alkaline Phosphatase Lactate Dehydrogenase C-Reactive Protein Total Protein Albumin Arterial Blood Glucose Coronavirus (PCR) 07/15/21 07/15/21 07/15/21 04:00 07:59 12:31 WBC MCV MCH MCHC RDW Lymph % (Auto) [place] % (Auto) Eos % (Auto) Lymph # (Auto) [place] # (Auto) Eos # (Auto) Baso # (Auto) Seg Neutrophils % Seg Neuts % (Manual) Lymphocytes % (Manual) Seg Neutrophils # Seg Neutrophils # Man Lymphocytes # (Manual) D-Dimer ABG pH POC ABG pCO2 POC ABG pO2 ABG pO2 ABG HCO3 ABG O2 Saturation ABG Base Excess ABG Oxyhemoglobin ABG Sodium ABG Chloride ABG Glucose Oxyhemoglobin Carboxyhemoglobin Sodium Potassium Chloride 96.0 L Carbon Dioxide 32 H BUN Creatinine 0.3 L Glucose 208 H POC Glucose 117 H 195 H Hemoglobin A1c Magnesium Ferritin AST ALT Alkaline Phosphatase Lactate Dehydrogenase C-Reactive Protein Total Protein Albumin Arterial Blood Glucose Coronavirus (PCR) 07/15/21 07/15/21 07/16/21 18:00 20:57 04:40 WBC MCV MCH MCHC RDW 17.1 H Lymph % (Auto) [place] % (Auto) Eos % (Auto) Lymph # (Auto) [place] # (Auto) Eos # (Auto) Baso # (Auto) Seg Neutrophils % Seg Neuts % (Manual) Lymphocytes % (Manual) Seg Neutrophils # Seg Neutrophils # Man Lymphocytes # (Manual) D-Dimer ABG pH POC ABG pCO2 POC ABG pO2 ABG pO2 ABG HCO3 ABG O2 Saturation ABG Base Excess ABG Oxyhemoglobin ABG Sodium ABG Chloride ABG Glucose Oxyhemoglobin Carboxyhemoglobin Sodium Potassium Chloride Carbon Dioxide BUN Creatinine Glucose POC Glucose 217 H 111 H Hemoglobin A1c Magnesium Ferritin AST ALT Alkaline Phosphatase Lactate Dehydrogenase C-Reactive Protein Total Protein Albumin Arterial Blood Glucose Coronavirus (PCR) 07/16/21 07/16/21 07/16/21 04:40 07:08 11:11 WBC MCV MCH MCHC RDW Lymph % (Auto) [place] % (Auto) Eos % (Auto) Lymph # (Auto) [place] # (Auto) Eos # (Auto) Baso # (Auto) Seg Neutrophils % Seg Neuts % (Manual) Lymphocytes % (Manual) Seg Neutrophils # Seg Neutrophils # Man Lymphocytes # (Manual) D-Dimer ABG pH POC ABG pCO2 POC ABG pO2 ABG pO2 ABG HCO3 ABG O2 Saturation ABG Base Excess ABG Oxyhemoglobin ABG Sodium ABG Chloride ABG Glucose Oxyhemoglobin Carboxyhemoglobin Sodium Potassium 3.4 L Chloride 94.6 L Carbon Dioxide 36 H BUN Creatinine < 0.2 L Glucose 101 H POC Glucose 118 H 184 H Hemoglobin A1c Magnesium Ferritin AST ALT Alkaline Phosphatase Lactate Dehydrogenase C-Reactive Protein Total Protein Albumin Arterial Blood Glucose Coronavirus (PCR) 07/16/21 07/16/21 07/17/21 17:29 22:01 08:10 WBC MCV MCH MCHC RDW Lymph % (Auto) [place] % (Auto) Eos % (Auto) Lymph # (Auto) [place] # (Auto) Eos # (Auto) Baso # (Auto) Seg Neutrophils % Seg Neuts % (Manual) Lymphocytes % (Manual) Seg Neutrophils # Seg Neutrophils # Man Lymphocytes # (Manual) D-Dimer ABG pH POC ABG pCO2 POC ABG pO2 ABG pO2 ABG HCO3 ABG O2 Saturation ABG Base Excess ABG Oxyhemoglobin ABG Sodium ABG Chloride ABG Glucose Oxyhemoglobin Carboxyhemoglobin Sodium Potassium Chloride Carbon Dioxide BUN Creatinine Glucose POC Glucose 200 H 147 H 118 H Hemoglobin A1c Magnesium Ferritin AST ALT Alkaline Phosphatase Lactate Dehydrogenase C-Reactive Protein Total Protein Albumin Arterial Blood Glucose Coronavirus (PCR) 07/17/21 07/17/21 07/17/21 11:38 16:24 21:13 WBC MCV MCH MCHC RDW Lymph % (Auto) [place] % (Auto) Eos % (Auto) Lymph # (Auto) [place] # (Auto) Eos # (Auto) Baso # (Auto) Seg Neutrophils % Seg Neuts % (Manual) Lymphocytes % (Manual) Seg Neutrophils # Seg Neutrophils # Man Lymphocytes # (Manual) D-Dimer ABG pH POC ABG pCO2 POC ABG pO2 ABG pO2 ABG HCO3 ABG O2 Saturation ABG Base Excess ABG Oxyhemoglobin ABG Sodium ABG Chloride ABG Glucose Oxyhemoglobin Carboxyhemoglobin Sodium Potassium Chloride Carbon Dioxide BUN Creatinine Glucose POC Glucose 151 H 268 H 115 H Hemoglobin A1c Magnesium Ferritin AST ALT Alkaline Phosphatase Lactate Dehydrogenase C-Reactive Protein Total Protein Albumin Arterial Blood Glucose Coronavirus (PCR) 07/18/21 07/18/21 07/18/21 07:58 12:29 20:24 WBC MCV MCH MCHC RDW Lymph % (Auto) [place] % (Auto) Eos % (Auto) Lymph # (Auto) [place] # (Auto) Eos # (Auto) Baso # (Auto) Seg Neutrophils % Seg Neuts % (Manual) Lymphocytes % (Manual) Seg Neutrophils # Seg Neutrophils # Man Lymphocytes # (Manual) D-Dimer ABG pH POC ABG pCO2 POC ABG pO2 ABG pO2 ABG HCO3 ABG O2 Saturation ABG Base Excess ABG Oxyhemoglobin ABG Sodium ABG Chloride ABG Glucose Oxyhemoglobin Carboxyhemoglobin Sodium Potassium Chloride Carbon Dioxide BUN Creatinine Glucose POC Glucose 135 H 139 H 130 H Hemoglobin A1c Magnesium Ferritin AST ALT Alkaline Phosphatase Lactate Dehydrogenase C-Reactive Protein Total Protein Albumin Arterial Blood Glucose Coronavirus (PCR) 07/19/21 07/19/21 07/19/21 06:55 06:55 07:54 WBC 14.5 H MCV MCH MCHC RDW 17.3 H Lymph % (Auto) 9.6 L [place] % (Auto) Eos % (Auto) Lymph # (Auto) [place] # (Auto) Eos # (Auto) 0.6 H Baso # (Auto) Seg Neutrophils % 80.3 H Seg Neuts % (Manual) Lymphocytes % (Manual) Seg Neutrophils # 11.7 H Seg Neutrophils # Man Lymphocytes # (Manual) D-Dimer ABG pH POC ABG pCO2 67.9 H POC ABG pO2 131.0 H ABG pO2 ABG HCO3 ABG O2 Saturation ABG Base Excess ABG Oxyhemoglobin ABG Sodium ABG Chloride 97.0 L ABG Glucose 133 H Oxyhemoglobin Carboxyhemoglobin Sodium Potassium Chloride 95.3 L Carbon Dioxide 35 H BUN Creatinine < 0.2 L Glucose 138 H POC Glucose Hemoglobin A1c Magnesium Ferritin AST ALT Alkaline Phosphatase Lactate Dehydrogenase C-Reactive Protein Total Protein Albumin Arterial Blood Glucose 133 H Coronavirus (PCR) 07/19/21 07/19/21 07/19/21 08:10 11:43 17:04 WBC MCV MCH MCHC RDW Lymph % (Auto) [place] % (Auto) Eos % (Auto) Lymph # (Auto) [place] # (Auto) Eos # (Auto) Baso # (Auto) Seg Neutrophils % Seg Neuts % (Manual) Lymphocytes % (Manual) Seg Neutrophils # Seg Neutrophils # Man Lymphocytes # (Manual) D-Dimer ABG pH POC ABG pCO2 POC ABG pO2 ABG pO2 ABG HCO3 ABG O2 Saturation ABG Base Excess ABG Oxyhemoglobin ABG Sodium ABG Chloride ABG Glucose Oxyhemoglobin Carboxyhemoglobin Sodium Potassium Chloride Carbon Dioxide BUN Creatinine Glucose POC Glucose 129 H 126 H 108 H Hemoglobin A1c Magnesium Ferritin AST ALT Alkaline Phosphatase Lactate Dehydrogenase C-Reactive Protein Total Protein Albumin Arterial Blood Glucose Coronavirus (PCR) 07/19/21 07/20/21 07/20/21 21:10 04:00 04:00 WBC MCV MCH MCHC RDW 17.0 H Lymph % (Auto) [place] % (Auto) 8.9 H Eos % (Auto) 6.3 H Lymph # (Auto) [place] # (Auto) 0.9 H Eos # (Auto) 0.6 H Baso # (Auto) Seg Neutrophils % 70.2 H Seg Neuts % (Manual) Lymphocytes % (Manual) Seg Neutrophils # Seg Neutrophils # Man Lymphocytes # (Manual) D-Dimer ABG pH POC ABG pCO2 POC ABG pO2 ABG pO2 ABG HCO3 ABG O2 Saturation ABG Base Excess ABG Oxyhemoglobin ABG Sodium ABG Chloride ABG Glucose Oxyhemoglobin Carboxyhemoglobin Sodium Potassium Chloride 96.7 L Carbon Dioxide 36 H BUN Creatinine 0.2 L Glucose 102 H POC Glucose 109 H Hemoglobin A1c Magnesium Ferritin AST ALT Alkaline Phosphatase Lactate Dehydrogenase C-Reactive Protein Total Protein Albumin 3.2 L Arterial Blood Glucose Coronavirus (PCR) 07/20/21 07/20/21 07/20/21 11:15 15:34 17:01 WBC MCV MCH MCHC RDW Lymph % (Auto) [place] % (Auto) Eos % (Auto) Lymph # (Auto) [place] # (Auto) Eos # (Auto) Baso # (Auto) Seg Neutrophils % Seg Neuts % (Manual) Lymphocytes % (Manual) Seg Neutrophils # Seg Neutrophils # Man Lymphocytes # (Manual) D-Dimer ABG pH POC ABG pCO2 POC ABG pO2 ABG pO2 ABG HCO3 ABG O2 Saturation ABG Base Excess ABG Oxyhemoglobin ABG Sodium ABG Chloride ABG Glucose Oxyhemoglobin Carboxyhemoglobin Sodium Potassium Chloride Carbon Dioxide BUN Creatinine Glucose POC Glucose 109 H 152 H 125 H Hemoglobin A1c Magnesium Ferritin AST ALT Alkaline Phosphatase Lactate Dehydrogenase C-Reactive Protein Total Protein Albumin Arterial Blood Glucose Coronavirus (PCR) 07/20/21 07/21/21 07/21/21 21:00 04:48 04:48 WBC 12.8 H MCV MCH MCHC RDW 16.8 H Lymph % (Auto) 9.3 L [place] % (Auto) Eos % (Auto) Lymph # (Auto) [place] # (Auto) 0.9 H Eos # (Auto) Baso # (Auto) Seg Neutrophils % 81.1 H Seg Neuts % (Manual) Lymphocytes % (Manual) Seg Neutrophils # 10.4 H Seg Neutrophils # Man Lymphocytes # (Manual) D-Dimer ABG pH POC ABG pCO2 POC ABG pO2 ABG pO2 ABG HCO3 ABG O2 Saturation ABG Base Excess ABG Oxyhemoglobin ABG Sodium ABG Chloride ABG Glucose Oxyhemoglobin Carboxyhemoglobin Sodium Potassium Chloride 95.4 L Carbon Dioxide 33 H BUN 6 L Creatinine < 0.2 L Glucose 155 H POC Glucose 211 H Hemoglobin A1c Magnesium 1.60 L Ferritin AST ALT Alkaline Phosphatase Lactate Dehydrogenase C-Reactive Protein Total Protein Albumin Arterial Blood Glucose Coronavirus (PCR) 07/21/21 07/21/21 07/21/21 07:52 11:05 17:01 WBC MCV MCH MCHC RDW Lymph % (Auto) [place] % (Auto) Eos % (Auto) Lymph # (Auto) [place] # (Auto) Eos # (Auto) Baso # (Auto) Seg Neutrophils % Seg Neuts % (Manual) Lymphocytes % (Manual) Seg Neutrophils # Seg Neutrophils # Man Lymphocytes # (Manual) D-Dimer ABG pH POC ABG pCO2 POC ABG pO2 ABG pO2 ABG HCO3 ABG O2 Saturation ABG Base Excess ABG Oxyhemoglobin ABG Sodium ABG Chloride ABG Glucose Oxyhemoglobin Carboxyhemoglobin Sodium Potassium Chloride Carbon Dioxide BUN Creatinine Glucose POC Glucose 116 H 207 H 133 H Hemoglobin A1c Magnesium Ferritin AST ALT Alkaline Phosphatase Lactate Dehydrogenase C-Reactive Protein Total Protein Albumin Arterial Blood Glucose Coronavirus (PCR) 07/21/21 07/22/21 07/22/21 21:17 07:55 07:55 WBC MCV MCH MCHC RDW 16.5 H Lymph % (Auto) [place] % (Auto) 8.6 H Eos % (Auto) Lymph # (Auto) [place] # (Auto) Eos # (Auto) Baso # (Auto) Seg Neutrophils % 72.3 H Seg Neuts % (Manual) Lymphocytes % (Manual) Seg Neutrophils # Seg Neutrophils # Man Lymphocytes # (Manual) D-Dimer ABG pH POC ABG pCO2 POC ABG pO2 ABG pO2 ABG HCO3 ABG O2 Saturation ABG Base Excess ABG Oxyhemoglobin ABG Sodium ABG Chloride ABG Glucose Oxyhemoglobin Carboxyhemoglobin Sodium Potassium Chloride 94.6 L Carbon Dioxide 42 H* D BUN 5 L Creatinine < 0.2 L Glucose POC Glucose 152 H Hemoglobin A1c Magnesium Ferritin AST ALT Alkaline Phosphatase Lactate Dehydrogenase C-Reactive Protein Total Protein Albumin Arterial Blood Glucose Coronavirus (PCR) 07/22/21 07/22/21 07/22/21 11:25 12:05 15:40 WBC MCV MCH MCHC RDW Lymph % (Auto) [place] % (Auto) Eos % (Auto) Lymph # (Auto) [place] # (Auto) Eos # (Auto) Baso # (Auto) Seg Neutrophils % Seg Neuts % (Manual) Lymphocytes % (Manual) Seg Neutrophils # Seg Neutrophils # Man Lymphocytes # (Manual) D-Dimer ABG pH 7.338 L POC ABG pCO2 POC ABG pO2 ABG pO2 66.1 L ABG HCO3 45.0 H ABG O2 Saturation 94.2 L ABG Base Excess 15.2 H ABG Oxyhemoglobin ABG Sodium ABG Chloride ABG Glucose Oxyhemoglobin 91.9 L Carboxyhemoglobin Sodium Potassium Chloride Carbon Dioxide BUN Creatinine Glucose POC Glucose 146 H 219 H Hemoglobin A1c Magnesium Ferritin AST ALT Alkaline Phosphatase Lactate Dehydrogenase C-Reactive Protein Total Protein Albumin Arterial Blood Glucose Coronavirus (PCR) 07/22/21 07/23/21 07/23/21 21:26 04:35 04:35 WBC MCV 98 H MCH MCHC RDW 16.2 H Lymph % (Auto) 7.9 L [place] % (Auto) Eos % (Auto) Lymph # (Auto) 0.9 L [place] # (Auto) Eos # (Auto) Baso # (Auto) Seg Neutrophils % 85.3 H Seg Neuts % (Manual) Lymphocytes % (Manual) Seg Neutrophils # 9.2 H Seg Neutrophils # Man Lymphocytes # (Manual) D-Dimer ABG pH POC ABG pCO2 POC ABG pO2 ABG pO2 ABG HCO3 ABG O2 Saturation ABG Base Excess ABG Oxyhemoglobin ABG Sodium ABG Chloride ABG Glucose Oxyhemoglobin Carboxyhemoglobin Sodium Potassium Chloride 93.9 L Carbon Dioxide 44 H* BUN Creatinine < 0.2 L Glucose 149 H POC Glucose 131 H Hemoglobin A1c Magnesium Ferritin AST ALT Alkaline Phosphatase Lactate Dehydrogenase C-Reactive Protein Total Protein Albumin Arterial Blood Glucose Coronavirus (PCR) 07/23/21 07/23/21 07/23/21 07:20 11:34 16:11 WBC MCV MCH MCHC RDW Lymph % (Auto) [place] % (Auto) Eos % (Auto) Lymph # (Auto) [place] # (Auto) Eos # (Auto) Baso # (Auto) Seg Neutrophils % Seg Neuts % (Manual) Lymphocytes % (Manual) Seg Neutrophils # Seg Neutrophils # Man Lymphocytes # (Manual) D-Dimer ABG pH POC ABG pCO2 POC ABG pO2 ABG pO2 ABG HCO3 ABG O2 Saturation ABG Base Excess ABG Oxyhemoglobin ABG Sodium ABG Chloride ABG Glucose Oxyhemoglobin Carboxyhemoglobin Sodium Potassium Chloride Carbon Dioxide BUN Creatinine Glucose POC Glucose 116 H 172 H 110 H Hemoglobin A1c Magnesium Ferritin AST ALT Alkaline Phosphatase Lactate Dehydrogenase C-Reactive Protein Total Protein Albumin Arterial Blood Glucose Coronavirus (PCR) 07/23/21 07/23/21 07/24/21 18:11 21:33 04:10 WBC MCV MCH MCHC RDW Lymph % (Auto) [place] % (Auto) Eos % (Auto) Lymph # (Auto) [place] # (Auto) Eos # (Auto) Baso # (Auto) Seg Neutrophils % Seg Neuts % (Manual) Lymphocytes % (Manual) Seg Neutrophils # Seg Neutrophils # Man Lymphocytes # (Manual) D-Dimer ABG pH POC ABG pCO2 78.3 H POC ABG pO2 80.7 L ABG pO2 ABG HCO3 ABG O2 Saturation ABG Base Excess ABG Oxyhemoglobin ABG Sodium 134.9 L ABG Chloride 89.0 L ABG Glucose 200 H Oxyhemoglobin Carboxyhemoglobin Sodium Potassium 3.5 L D Chloride 92.4 L Carbon Dioxide 42 H* BUN Creatinine < 0.2 L Glucose 123 H POC Glucose 108 H Hemoglobin A1c Magnesium Ferritin AST ALT Alkaline Phosphatase Lactate Dehydrogenase C-Reactive Protein Total Protein Albumin Arterial Blood Glucose 200 H Coronavirus (PCR) 07/24/21 07/24/21 07/24/21 11:01 16:56 22:06 WBC MCV MCH MCHC RDW Lymph % (Auto) [place] % (Auto) Eos % (Auto) Lymph # (Auto) [place] # (Auto) Eos # (Auto) Baso # (Auto) Seg Neutrophils % Seg Neuts % (Manual) Lymphocytes % (Manual) Seg Neutrophils # Seg Neutrophils # Man Lymphocytes # (Manual) D-Dimer ABG pH POC ABG pCO2 POC ABG pO2 ABG pO2 ABG HCO3 ABG O2 Saturation ABG Base Excess ABG Oxyhemoglobin ABG Sodium ABG Chloride ABG Glucose Oxyhemoglobin Carboxyhemoglobin Sodium Potassium Chloride Carbon Dioxide BUN Creatinine Glucose POC Glucose 171 H 111 H 136 H Hemoglobin A1c Magnesium Ferritin AST ALT Alkaline Phosphatase Lactate Dehydrogenase C-Reactive Protein Total Protein Albumin Arterial Blood Glucose Coronavirus (PCR) 07/25/21 07/25/21 07/25/21 07:40 10:59 11:58 WBC MCV MCH MCHC RDW Lymph % (Auto) [place] % (Auto) Eos % (Auto) Lymph # (Auto) [place] # (Auto) Eos # (Auto) Baso # (Auto) Seg Neutrophils % Seg Neuts % (Manual) Lymphocytes % (Manual) Seg Neutrophils # Seg Neutrophils # Man Lymphocytes # (Manual) D-Dimer ABG pH POC ABG pCO2 POC ABG pO2 ABG pO2 ABG HCO3 ABG O2 Saturation ABG Base Excess ABG Oxyhemoglobin ABG Sodium ABG Chloride ABG Glucose Oxyhemoglobin Carboxyhemoglobin Sodium Potassium Chloride 88.6 L Carbon Dioxide 43 H* BUN Creatinine 0.2 L Glucose 180 H POC Glucose 120 H 153 H Hemoglobin A1c Magnesium Ferritin AST ALT Alkaline Phosphatase Lactate Dehydrogenase C-Reactive Protein Total Protein Albumin Arterial Blood Glucose Coronavirus (PCR) 07/25/21 07/25/21 07/26/21 16:03 20:18 09:56 WBC MCV MCH MCHC RDW Lymph % (Auto) [place] % (Auto) Eos % (Auto) Lymph # (Auto) [place] # (Auto) Eos # (Auto) Baso # (Auto) Seg Neutrophils % Seg Neuts % (Manual) Lymphocytes % (Manual) Seg Neutrophils # Seg Neutrophils # Man Lymphocytes # (Manual) D-Dimer ABG pH POC ABG pCO2 POC ABG pO2 ABG pO2 ABG HCO3 ABG O2 Saturation ABG Base Excess ABG Oxyhemoglobin ABG Sodium ABG Chloride ABG Glucose Oxyhemoglobin Carboxyhemoglobin Sodium Potassium Chloride 91.3 L Carbon Dioxide 45 H* BUN Creatinine < 0.2 L Glucose 128 H POC Glucose 143 H 133 H Hemoglobin A1c Magnesium Ferritin AST ALT Alkaline Phosphatase Lactate Dehydrogenase C-Reactive Protein Total Protein Albumin 3.2 L Arterial Blood Glucose Coronavirus (PCR) 07/26/21 07/26/21 07/27/21 17:56 21:24 07:10 WBC MCV MCH MCHC RDW Lymph % (Auto) [place] % (Auto) Eos % (Auto) Lymph # (Auto) [place] # (Auto) Eos # (Auto) Baso # (Auto) Seg Neutrophils % Seg Neuts % (Manual) Lymphocytes % (Manual) Seg Neutrophils # Seg Neutrophils # Man Lymphocytes # (Manual) D-Dimer ABG pH POC ABG pCO2 POC ABG pO2 ABG pO2 ABG HCO3 ABG O2 Saturation ABG Base Excess ABG Oxyhemoglobin ABG Sodium ABG Chloride ABG Glucose Oxyhemoglobin Carboxyhemoglobin Sodium Potassium Chloride Carbon Dioxide BUN Creatinine Glucose POC Glucose 170 H 122 H 119 H Hemoglobin A1c Magnesium Ferritin AST ALT Alkaline Phosphatase Lactate Dehydrogenase C-Reactive Protein Total Protein Albumin Arterial Blood Glucose Coronavirus (PCR) 07/27/21 07/27/21 07/28/21 11:44 21:31 07:30 WBC MCV MCH MCHC RDW Lymph % (Auto) [place] % (Auto) Eos % (Auto) Lymph # (Auto) [place] # (Auto) Eos # (Auto) Baso # (Auto) Seg Neutrophils % Seg Neuts % (Manual) Lymphocytes % (Manual) Seg Neutrophils # Seg Neutrophils # Man Lymphocytes # (Manual) D-Dimer ABG pH POC ABG pCO2 POC ABG pO2 ABG pO2 ABG HCO3 ABG O2 Saturation ABG Base Excess ABG Oxyhemoglobin ABG Sodium ABG Chloride ABG Glucose Oxyhemoglobin Carboxyhemoglobin Sodium Potassium 3.4 L D Chloride 91.4 L Carbon Dioxide 39 H BUN Creatinine < 0.2 L Glucose 140 H POC Glucose 176 H 162 H Hemoglobin A1c Magnesium Ferritin AST ALT Alkaline Phosphatase Lactate Dehydrogenase C-Reactive Protein Total Protein Albumin Arterial Blood Glucose Coronavirus (PCR) 07/28/21 07/28/21 07/28/21 08:43 12:25 16:40 WBC MCV MCH MCHC RDW Lymph % (Auto) [place] % (Auto) Eos % (Auto) Lymph # (Auto) [place] # (Auto) Eos # (Auto) Baso # (Auto) Seg Neutrophils % Seg Neuts % (Manual) Lymphocytes % (Manual) Seg Neutrophils # Seg Neutrophils # Man Lymphocytes # (Manual) D-Dimer ABG pH POC ABG pCO2 POC ABG pO2 ABG pO2 ABG HCO3 ABG O2 Saturation ABG Base Excess ABG Oxyhemoglobin ABG Sodium ABG Chloride ABG Glucose Oxyhemoglobin Carboxyhemoglobin Sodium Potassium Chloride Carbon Dioxide BUN Creatinine Glucose POC Glucose 122 H 162 H 234 H Hemoglobin A1c Magnesium Ferritin AST ALT Alkaline Phosphatase Lactate Dehydrogenase C-Reactive Protein Total Protein Albumin Arterial Blood Glucose Coronavirus (PCR) 07/28/21 07/29/21 07/29/21 21:27 04:40 09:51 WBC MCV MCH MCHC RDW Lymph % (Auto) [place] % (Auto) Eos % (Auto) Lymph # (Auto) [place] # (Auto) Eos # (Auto) Baso # (Auto) Seg Neutrophils % Seg Neuts % (Manual) Lymphocytes % (Manual) Seg Neutrophils # Seg Neutrophils # Man Lymphocytes # (Manual) D-Dimer ABG pH POC ABG pCO2 POC ABG pO2 ABG pO2 ABG HCO3 ABG O2 Saturation ABG Base Excess ABG Oxyhemoglobin ABG Sodium ABG Chloride ABG Glucose Oxyhemoglobin Carboxyhemoglobin Sodium Potassium 3.4 L Chloride 92.3 L Carbon Dioxide 40 H BUN Creatinine < 0.2 L Glucose 125 H POC Glucose 155 H 112 H Hemoglobin A1c Magnesium Ferritin AST ALT Alkaline Phosphatase Lactate Dehydrogenase C-Reactive Protein Total Protein Albumin Arterial Blood Glucose Coronavirus (PCR) 07/29/21 07/29/21 07/29/21 12:03 16:39 21:28 WBC MCV MCH MCHC RDW Lymph % (Auto) [place] % (Auto) Eos % (Auto) Lymph # (Auto) [place] # (Auto) Eos # (Auto) Baso # (Auto) Seg Neutrophils % Seg Neuts % (Manual) Lymphocytes % (Manual) Seg Neutrophils # Seg Neutrophils # Man Lymphocytes # (Manual) D-Dimer ABG pH POC ABG pCO2 POC ABG pO2 ABG pO2 ABG HCO3 ABG O2 Saturation ABG Base Excess ABG Oxyhemoglobin ABG Sodium ABG Chloride ABG Glucose Oxyhemoglobin Carboxyhemoglobin Sodium Potassium Chloride Carbon Dioxide BUN Creatinine Glucose POC Glucose 188 H 141 H 130 H Hemoglobin A1c Magnesium Ferritin AST ALT Alkaline Phosphatase Lactate Dehydrogenase C-Reactive Protein Total Protein Albumin Arterial Blood Glucose Coronavirus (PCR) 07/30/21 07/30/21 07/30/21 08:37 11:56 22:25 WBC MCV MCH MCHC RDW Lymph % (Auto) [place] % (Auto) Eos % (Auto) Lymph # (Auto) [place] # (Auto) Eos # (Auto) Baso # (Auto) Seg Neutrophils % Seg Neuts % (Manual) Lymphocytes % (Manual) Seg Neutrophils # Seg Neutrophils # Man Lymphocytes # (Manual) D-Dimer ABG pH POC ABG pCO2 POC ABG pO2 ABG pO2 ABG HCO3 ABG O2 Saturation ABG Base Excess ABG Oxyhemoglobin ABG Sodium ABG Chloride ABG Glucose Oxyhemoglobin Carboxyhemoglobin Sodium Potassium Chloride Carbon Dioxide BUN Creatinine Glucose POC Glucose 133 H 156 H 118 H Hemoglobin A1c Magnesium Ferritin AST ALT Alkaline Phosphatase Lactate Dehydrogenase C-Reactive Protein Total Protein Albumin Arterial Blood Glucose Coronavirus (PCR) 07/31/21 07/31/21 07/31/21 06:43 11:55 16:39 WBC MCV MCH MCHC RDW Lymph % (Auto) [place] % (Auto) Eos % (Auto) Lymph # (Auto) [place] # (Auto) Eos # (Auto) Baso # (Auto) Seg Neutrophils % Seg Neuts % (Manual) Lymphocytes % (Manual) Seg Neutrophils # Seg Neutrophils # Man Lymphocytes # (Manual) D-Dimer ABG pH POC ABG pCO2 POC ABG pO2 ABG pO2 ABG HCO3 ABG O2 Saturation ABG Base Excess ABG Oxyhemoglobin ABG Sodium ABG Chloride ABG Glucose Oxyhemoglobin Carboxyhemoglobin Sodium Potassium Chloride Carbon Dioxide BUN Creatinine Glucose POC Glucose 115 H 114 H 185 H Hemoglobin A1c Magnesium Ferritin AST ALT Alkaline Phosphatase Lactate Dehydrogenase C-Reactive Protein Total Protein Albumin Arterial Blood Glucose Coronavirus (PCR) 07/31/21 08/01/21 08/01/21 23:22 11:35 15:34 WBC MCV MCH MCHC RDW Lymph % (Auto) [place] % (Auto) Eos % (Auto) Lymph # (Auto) [place] # (Auto) Eos # (Auto) Baso # (Auto) Seg Neutrophils % Seg Neuts % (Manual) Lymphocytes % (Manual) Seg Neutrophils # Seg Neutrophils # Man Lymphocytes # (Manual) D-Dimer ABG pH POC ABG pCO2 POC ABG pO2 ABG pO2 ABG HCO3 ABG O2 Saturation ABG Base Excess ABG Oxyhemoglobin ABG Sodium ABG Chloride ABG Glucose Oxyhemoglobin Carboxyhemoglobin Sodium Potassium Chloride Carbon Dioxide BUN Creatinine Glucose POC Glucose 213 H 122 H 142 H Hemoglobin A1c Magnesium Ferritin AST ALT Alkaline Phosphatase Lactate Dehydrogenase C-Reactive Protein Total Protein Albumin Arterial Blood Glucose Coronavirus (PCR) 08/01/21 08/02/21 08/02/21 22:15 07:41 11:58 WBC MCV MCH MCHC RDW Lymph % (Auto) [place] % (Auto) Eos % (Auto) Lymph # (Auto) [place] # (Auto) Eos # (Auto) Baso # (Auto) Seg Neutrophils % Seg Neuts % (Manual) Lymphocytes % (Manual) Seg Neutrophils # Seg Neutrophils # Man Lymphocytes # (Manual) D-Dimer ABG pH POC ABG pCO2 POC ABG pO2 ABG pO2 ABG HCO3 ABG O2 Saturation ABG Base Excess ABG Oxyhemoglobin ABG Sodium ABG Chloride ABG Glucose Oxyhemoglobin Carboxyhemoglobin Sodium Potassium Chloride Carbon Dioxide BUN Creatinine Glucose POC Glucose 121 H 109 H 136 H Hemoglobin A1c Magnesium Ferritin AST ALT Alkaline Phosphatase Lactate Dehydrogenase C-Reactive Protein Total Protein Albumin Arterial Blood Glucose Coronavirus (PCR) 08/02/21 08/03/21 08/03/21 21:19 07:47 11:18 WBC MCV MCH MCHC RDW Lymph % (Auto) [place] % (Auto) Eos % (Auto) Lymph # (Auto) [place] # (Auto) Eos # (Auto) Baso # (Auto) Seg Neutrophils % Seg Neuts % (Manual) Lymphocytes % (Manual) Seg Neutrophils # Seg Neutrophils # Man Lymphocytes # (Manual) D-Dimer ABG pH POC ABG pCO2 POC ABG pO2 ABG pO2 ABG HCO3 ABG O2 Saturation ABG Base Excess ABG Oxyhemoglobin ABG Sodium ABG Chloride ABG Glucose Oxyhemoglobin Carboxyhemoglobin Sodium Potassium Chloride Carbon Dioxide BUN Creatinine Glucose POC Glucose 159 H 111 H 202 H Hemoglobin A1c Magnesium Ferritin AST ALT Alkaline Phosphatase Lactate Dehydrogenase C-Reactive Protein Total Protein Albumin Arterial Blood Glucose Coronavirus (PCR) 08/03/21 08/03/21 08/04/21 16:47 21:26 07:57 WBC MCV MCH MCHC RDW Lymph % (Auto) [place] % (Auto) Eos % (Auto) Lymph # (Auto) [place] # (Auto) Eos # (Auto) Baso # (Auto) Seg Neutrophils % Seg Neuts % (Manual) Lymphocytes % (Manual) Seg Neutrophils # Seg Neutrophils # Man Lymphocytes # (Manual) D-Dimer ABG pH POC ABG pCO2 POC ABG pO2 ABG pO2 ABG HCO3 ABG O2 Saturation ABG Base Excess ABG Oxyhemoglobin ABG Sodium ABG Chloride ABG Glucose Oxyhemoglobin Carboxyhemoglobin Sodium Potassium Chloride Carbon Dioxide BUN Creatinine Glucose POC Glucose 133 H 148 H 129 H Hemoglobin A1c Magnesium Ferritin AST ALT Alkaline Phosphatase Lactate Dehydrogenase C-Reactive Protein Total Protein Albumin Arterial Blood Glucose Coronavirus (PCR) 08/04/21 08/04/21 08/04/21 08:05 11:42 16:53 WBC MCV MCH MCHC RDW Lymph % (Auto) [place] % (Auto) Eos % (Auto) Lymph # (Auto) [place] # (Auto) Eos # (Auto) Baso # (Auto) Seg Neutrophils % Seg Neuts % (Manual) Lymphocytes % (Manual) Seg Neutrophils # Seg Neutrophils # Man Lymphocytes # (Manual) D-Dimer ABG pH POC ABG pCO2 POC ABG pO2 ABG pO2 ABG HCO3 ABG O2 Saturation ABG Base Excess ABG Oxyhemoglobin ABG Sodium ABG Chloride ABG Glucose Oxyhemoglobin Carboxyhemoglobin Sodium Potassium Chloride Carbon Dioxide BUN Creatinine Glucose POC Glucose 145 H 187 H 112 H Hemoglobin A1c Magnesium Ferritin AST ALT Alkaline Phosphatase Lactate Dehydrogenase C-Reactive Protein Total Protein Albumin Arterial Blood Glucose Coronavirus (PCR) 08/04/21 08/05/21 08/05/21 21:27 07:35 11:19 WBC MCV MCH MCHC RDW Lymph % (Auto) [place] % (Auto) Eos % (Auto) Lymph # (Auto) [place] # (Auto) Eos # (Auto) Baso # (Auto) Seg Neutrophils % Seg Neuts % (Manual) Lymphocytes % (Manual) Seg Neutrophils # Seg Neutrophils # Man Lymphocytes # (Manual) D-Dimer ABG pH POC ABG pCO2 POC ABG pO2 ABG pO2 ABG HCO3 ABG O2 Saturation ABG Base Excess ABG Oxyhemoglobin ABG Sodium ABG Chloride ABG Glucose Oxyhemoglobin Carboxyhemoglobin Sodium Potassium Chloride Carbon Dioxide BUN Creatinine Glucose POC Glucose 189 H 146 H 244 H Hemoglobin A1c Magnesium Ferritin AST ALT Alkaline Phosphatase Lactate Dehydrogenase C-Reactive Protein Total Protein Albumin Arterial Blood Glucose Coronavirus (PCR) 08/05/21 08/06/21 08/06/21 22:16 07:29 11:16 WBC MCV MCH MCHC RDW Lymph % (Auto) [place] % (Auto) Eos % (Auto) Lymph # (Auto) [place] # (Auto) Eos # (Auto) Baso # (Auto) Seg Neutrophils % Seg Neuts % (Manual) Lymphocytes % (Manual) Seg Neutrophils # Seg Neutrophils # Man Lymphocytes # (Manual) D-Dimer ABG pH POC ABG pCO2 POC ABG pO2 ABG pO2 ABG HCO3 ABG O2 Saturation ABG Base Excess ABG Oxyhemoglobin ABG Sodium ABG Chloride ABG Glucose Oxyhemoglobin Carboxyhemoglobin Sodium Potassium Chloride Carbon Dioxide BUN Creatinine Glucose POC Glucose 122 H 128 H 228 H Hemoglobin A1c Magnesium Ferritin AST ALT Alkaline Phosphatase Lactate Dehydrogenase C-Reactive Protein Total Protein Albumin Arterial Blood Glucose Coronavirus (PCR) 08/06/21 08/07/21 08/07/21 21:13 07:17 11:54 WBC MCV MCH MCHC RDW Lymph % (Auto) [place] % (Auto) Eos % (Auto) Lymph # (Auto) [place] # (Auto) Eos # (Auto) Baso # (Auto) Seg Neutrophils % Seg Neuts % (Manual) Lymphocytes % (Manual) Seg Neutrophils # Seg Neutrophils # Man Lymphocytes # (Manual) D-Dimer ABG pH POC ABG pCO2 POC ABG pO2 ABG pO2 ABG HCO3 ABG O2 Saturation ABG Base Excess ABG Oxyhemoglobin ABG Sodium ABG Chloride ABG Glucose Oxyhemoglobin Carboxyhemoglobin Sodium Potassium Chloride Carbon Dioxide BUN Creatinine Glucose POC Glucose 198 H 134 H 107 H Hemoglobin A1c Magnesium Ferritin AST ALT Alkaline Phosphatase Lactate Dehydrogenase C-Reactive Protein Total Protein Albumin Arterial Blood Glucose Coronavirus (PCR) 08/07/21 08/07/21 08/08/21 16:26 21:15 04:51 WBC MCV MCH MCHC RDW Lymph % (Auto) [place] % (Auto) Eos % (Auto) Lymph # (Auto) [place] # (Auto) Eos # (Auto) Baso # (Auto) Seg Neutrophils % Seg Neuts % (Manual) Lymphocytes % (Manual) Seg Neutrophils # Seg Neutrophils # Man Lymphocytes # (Manual) D-Dimer ABG pH POC ABG pCO2 POC ABG pO2 ABG pO2 ABG HCO3 ABG O2 Saturation ABG Base Excess ABG Oxyhemoglobin ABG Sodium ABG Chloride ABG Glucose Oxyhemoglobin Carboxyhemoglobin Sodium Potassium Chloride 92.9 L Carbon Dioxide 39 H BUN Creatinine < 0.2 L Glucose 105 H POC Glucose 144 H 228 H Hemoglobin A1c Magnesium Ferritin AST ALT Alkaline Phosphatase Lactate Dehydrogenase C-Reactive Protein Total Protein Albumin Arterial Blood Glucose Coronavirus (PCR) 08/08/21 08/08/21 08/08/21 11:40 17:09 21:22 WBC MCV MCH MCHC RDW Lymph % (Auto) [place] % (Auto) Eos % (Auto) Lymph # (Auto) [place] # (Auto) Eos # (Auto) Baso # (Auto) Seg Neutrophils % Seg Neuts % (Manual) Lymphocytes % (Manual) Seg Neutrophils # Seg Neutrophils # Man Lymphocytes # (Manual) D-Dimer ABG pH POC ABG pCO2 POC ABG pO2 ABG pO2 ABG HCO3 ABG O2 Saturation ABG Base Excess ABG Oxyhemoglobin ABG Sodium ABG Chloride ABG Glucose Oxyhemoglobin Carboxyhemoglobin Sodium Potassium Chloride Carbon Dioxide BUN Creatinine Glucose POC Glucose 137 H 137 H 152 H Hemoglobin A1c Magnesium Ferritin AST ALT Alkaline Phosphatase Lactate Dehydrogenase C-Reactive Protein Total Protein Albumin Arterial Blood Glucose Coronavirus (PCR) 08/09/21 08/09/21 08/09/21 07:42 12:26 16:41 WBC MCV MCH MCHC RDW Lymph % (Auto) [place] % (Auto) Eos % (Auto) Lymph # (Auto) [place] # (Auto) Eos # (Auto) Baso # (Auto) Seg Neutrophils % Seg Neuts % (Manual) Lymphocytes % (Manual) Seg Neutrophils # Seg Neutrophils # Man Lymphocytes # (Manual) D-Dimer ABG pH POC ABG pCO2 POC ABG pO2 ABG pO2 ABG HCO3 ABG O2 Saturation ABG Base Excess ABG Oxyhemoglobin ABG Sodium ABG Chloride ABG Glucose Oxyhemoglobin Carboxyhemoglobin Sodium Potassium Chloride Carbon Dioxide BUN Creatinine Glucose POC Glucose 120 H 132 H 116 H Hemoglobin A1c Magnesium Ferritin AST ALT Alkaline Phosphatase Lactate Dehydrogenase C-Reactive Protein Total Protein Albumin Arterial Blood Glucose Coronavirus (PCR) 08/09/21 08/10/21 08/10/21 21:13 07:41 11:33 WBC MCV MCH MCHC RDW Lymph % (Auto) [place] % (Auto) Eos % (Auto) Lymph # (Auto) [place] # (Auto) Eos # (Auto) Baso # (Auto) Seg Neutrophils % Seg Neuts % (Manual) Lymphocytes % (Manual) Seg Neutrophils # Seg Neutrophils # Man Lymphocytes # (Manual) D-Dimer ABG pH POC ABG pCO2 POC ABG pO2 ABG pO2 ABG HCO3 ABG O2 Saturation ABG Base Excess ABG Oxyhemoglobin ABG Sodium ABG Chloride ABG Glucose Oxyhemoglobin Carboxyhemoglobin Sodium Potassium Chloride Carbon Dioxide BUN Creatinine Glucose POC Glucose 205 H 125 H 125 H Hemoglobin A1c Magnesium Ferritin AST ALT Alkaline Phosphatase Lactate Dehydrogenase C-Reactive Protein Total Protein Albumin Arterial Blood Glucose Coronavirus (PCR) 08/10/21 08/10/21 08/11/21 15:21 21:07 07:22 WBC MCV MCH MCHC RDW Lymph % (Auto) [place] % (Auto) Eos % (Auto) Lymph # (Auto) [place] # (Auto) Eos # (Auto) Baso # (Auto) Seg Neutrophils % Seg Neuts % (Manual) Lymphocytes % (Manual) Seg Neutrophils # Seg Neutrophils # Man Lymphocytes # (Manual) D-Dimer ABG pH POC ABG pCO2 POC ABG pO2 ABG pO2 ABG HCO3 ABG O2 Saturation ABG Base Excess ABG Oxyhemoglobin ABG Sodium ABG Chloride ABG Glucose Oxyhemoglobin Carboxyhemoglobin Sodium Potassium Chloride Carbon Dioxide BUN Creatinine Glucose POC Glucose 188 H 177 H 123 H Hemoglobin A1c Magnesium Ferritin AST ALT Alkaline Phosphatase Lactate Dehydrogenase C-Reactive Protein Total Protein Albumin Arterial Blood Glucose Coronavirus (PCR) 08/11/21 08/11/21 08/11/21 11:42 15:43 21:34 WBC MCV MCH MCHC RDW Lymph % (Auto) [place] % (Auto) Eos % (Auto) Lymph # (Auto) [place] # (Auto) Eos # (Auto) Baso # (Auto) Seg Neutrophils % Seg Neuts % (Manual) Lymphocytes % (Manual) Seg Neutrophils # Seg Neutrophils # Man Lymphocytes # (Manual) D-Dimer ABG pH POC ABG pCO2 POC ABG pO2 ABG pO2 ABG HCO3 ABG O2 Saturation ABG Base Excess ABG Oxyhemoglobin ABG Sodium ABG Chloride ABG Glucose Oxyhemoglobin Carboxyhemoglobin Sodium Potassium Chloride Carbon Dioxide BUN Creatinine Glucose POC Glucose 182 H 182 H 112 H Hemoglobin A1c Magnesium Ferritin AST ALT Alkaline Phosphatase Lactate Dehydrogenase C-Reactive Protein Total Protein Albumin Arterial Blood Glucose Coronavirus (PCR) 08/12/21 08/12/21 08/12/21 07:49 12:03 17:06 WBC MCV MCH MCHC RDW Lymph % (Auto) [place] % (Auto) Eos % (Auto) Lymph # (Auto) [place] # (Auto) Eos # (Auto) Baso # (Auto) Seg Neutrophils % Seg Neuts % (Manual) Lymphocytes % (Manual) Seg Neutrophils # Seg Neutrophils # Man Lymphocytes # (Manual) D-Dimer ABG pH POC ABG pCO2 POC ABG pO2 ABG pO2 ABG HCO3 ABG O2 Saturation ABG Base Excess ABG Oxyhemoglobin ABG Sodium ABG Chloride ABG Glucose Oxyhemoglobin Carboxyhemoglobin Sodium Potassium Chloride Carbon Dioxide BUN Creatinine Glucose POC Glucose 151 H 154 H 106 H Hemoglobin A1c Magnesium Ferritin AST ALT Alkaline Phosphatase Lactate Dehydrogenase C-Reactive Protein Total Protein Albumin Arterial Blood Glucose Coronavirus (PCR) 08/12/21 08/13/21 08/13/21 21:50 07:31 11:27 WBC MCV MCH MCHC RDW Lymph % (Auto) [place] % (Auto) Eos % (Auto) Lymph # (Auto) [place] # (Auto) Eos # (Auto) Baso # (Auto) Seg Neutrophils % Seg Neuts % (Manual) Lymphocytes % (Manual) Seg Neutrophils # Seg Neutrophils # Man Lymphocytes # (Manual) D-Dimer ABG pH POC ABG pCO2 POC ABG pO2 ABG pO2 ABG HCO3 ABG O2 Saturation ABG Base Excess ABG Oxyhemoglobin ABG Sodium ABG Chloride ABG Glucose Oxyhemoglobin Carboxyhemoglobin Sodium Potassium Chloride Carbon Dioxide BUN Creatinine Glucose POC Glucose 160 H 118 H 177 H Hemoglobin A1c Magnesium Ferritin AST ALT Alkaline Phosphatase Lactate Dehydrogenase C-Reactive Protein Total Protein Albumin Arterial Blood Glucose Coronavirus (PCR) 08/13/21 08/13/21 08/14/21 16:21 20:59 07:16 WBC MCV MCH MCHC RDW Lymph % (Auto) [place] % (Auto) Eos % (Auto) Lymph # (Auto) [place] # (Auto) Eos # (Auto) Baso # (Auto) Seg Neutrophils % Seg Neuts % (Manual) Lymphocytes % (Manual) Seg Neutrophils # Seg Neutrophils # Man Lymphocytes # (Manual) D-Dimer ABG pH POC ABG pCO2 POC ABG pO2 ABG pO2 ABG HCO3 ABG O2 Saturation ABG Base Excess ABG Oxyhemoglobin ABG Sodium ABG Chloride ABG Glucose Oxyhemoglobin Carboxyhemoglobin Sodium Potassium Chloride Carbon Dioxide BUN Creatinine Glucose POC Glucose 116 H 140 H 109 H Hemoglobin A1c Magnesium Ferritin AST ALT Alkaline Phosphatase Lactate Dehydrogenase C-Reactive Protein Total Protein Albumin Arterial Blood Glucose Coronavirus (PCR) 08/14/21 08/14/21 08/14/21 11:13 16:30 21:11 WBC MCV MCH MCHC RDW Lymph % (Auto) [place] % (Auto) Eos % (Auto) Lymph # (Auto) [place] # (Auto) Eos # (Auto) Baso # (Auto) Seg Neutrophils % Seg Neuts % (Manual) Lymphocytes % (Manual) Seg Neutrophils # Seg Neutrophils # Man Lymphocytes # (Manual) D-Dimer ABG pH POC ABG pCO2 POC ABG pO2 ABG pO2 ABG HCO3 ABG O2 Saturation ABG Base Excess ABG Oxyhemoglobin ABG Sodium ABG Chloride ABG Glucose Oxyhemoglobin Carboxyhemoglobin Sodium Potassium Chloride Carbon Dioxide BUN Creatinine Glucose POC Glucose 176 H 117 H 222 H Hemoglobin A1c Magnesium Ferritin AST ALT Alkaline Phosphatase Lactate Dehydrogenase C-Reactive Protein Total Protein Albumin Arterial Blood Glucose Coronavirus (PCR) 08/15/21 08/15/21 08/15/21 07:10 11:11 16:25 WBC MCV MCH MCHC RDW Lymph % (Auto) [place] % (Auto) Eos % (Auto) Lymph # (Auto) [place] # (Auto) Eos # (Auto) Baso # (Auto) Seg Neutrophils % Seg Neuts % (Manual) Lymphocytes % (Manual) Seg Neutrophils # Seg Neutrophils # Man Lymphocytes # (Manual) D-Dimer ABG pH POC ABG pCO2 POC ABG pO2 ABG pO2 ABG HCO3 ABG O2 Saturation ABG Base Excess ABG Oxyhemoglobin ABG Sodium ABG Chloride ABG Glucose Oxyhemoglobin Carboxyhemoglobin Sodium Potassium Chloride Carbon Dioxide BUN Creatinine Glucose POC Glucose 165 H 225 H 157 H Hemoglobin A1c Magnesium Ferritin AST ALT Alkaline Phosphatase Lactate Dehydrogenase C-Reactive Protein Total Protein Albumin Arterial Blood Glucose Coronavirus (PCR) 08/16/21 08/16/21 08/16/21 07:29 11:14 21:03 WBC MCV MCH MCHC RDW Lymph % (Auto) [place] % (Auto) Eos % (Auto) Lymph # (Auto) [place] # (Auto) Eos # (Auto) Baso # (Auto) Seg Neutrophils % Seg Neuts % (Manual) Lymphocytes % (Manual) Seg Neutrophils # Seg Neutrophils # Man Lymphocytes # (Manual) D-Dimer ABG pH POC ABG pCO2 POC ABG pO2 ABG pO2 ABG HCO3 ABG O2 Saturation ABG Base Excess ABG Oxyhemoglobin ABG Sodium ABG Chloride ABG Glucose Oxyhemoglobin Carboxyhemoglobin Sodium Potassium Chloride Carbon Dioxide BUN Creatinine Glucose POC Glucose 177 H 254 H 291 H Hemoglobin A1c Magnesium Ferritin AST ALT Alkaline Phosphatase Lactate Dehydrogenase C-Reactive Protein Total Protein Albumin Arterial Blood Glucose Coronavirus (PCR) 08/17/21 08/17/21 08/17/21 07:50 12:18 17:35 WBC MCV MCH MCHC RDW Lymph % (Auto) [place] % (Auto) Eos % (Auto) Lymph # (Auto) [place] # (Auto) Eos # (Auto) Baso # (Auto) Seg Neutrophils % Seg Neuts % (Manual) Lymphocytes % (Manual) Seg Neutrophils # Seg Neutrophils # Man Lymphocytes # (Manual) D-Dimer ABG pH POC ABG pCO2 POC ABG pO2 ABG pO2 ABG HCO3 ABG O2 Saturation ABG Base Excess ABG Oxyhemoglobin ABG Sodium ABG Chloride ABG Glucose Oxyhemoglobin Carboxyhemoglobin Sodium Potassium Chloride Carbon Dioxide BUN Creatinine Glucose POC Glucose 171 H 236 H 273 H Hemoglobin A1c Magnesium Ferritin AST ALT Alkaline Phosphatase Lactate Dehydrogenase C-Reactive Protein Total Protein Albumin Arterial Blood Glucose Coronavirus (PCR) 08/17/21 21:36 WBC MCV MCH MCHC RDW Lymph % (Auto) [place] % (Auto) Eos % (Auto) Lymph # (Auto) [place] # (Auto) Eos # (Auto) Baso # (Auto) Seg Neutrophils % Seg Neuts % (Manual) Lymphocytes % (Manual) Seg Neutrophils # Seg Neutrophils # Man Lymphocytes # (Manual) D-Dimer ABG pH POC ABG pCO2 POC ABG pO2 ABG pO2 ABG HCO3 ABG O2 Saturation ABG Base Excess ABG Oxyhemoglobin ABG Sodium ABG Chloride ABG Glucose Oxyhemoglobin Carboxyhemoglobin Sodium Potassium Chloride Carbon Dioxide BUN Creatinine Glucose POC Glucose 181 H Hemoglobin A1c Magnesium Ferritin AST ALT Alkaline Phosphatase Lactate Dehydrogenase C-Reactive Protein Total Protein Albumin Arterial Blood Glucose Coronavirus (PCR)
[2021-08-18] MEDS: methylPREDNISolone Sod Succinate 125 MG/2 ML INJ IV SCH ×3 (05:16→21:38)
[2021-08-18] MEDS: INSULIN LISPRO 100 UNIT/ML SUB-Q SCH ×4 (07:55→21:38)
--- NOTE | 2021-08-18 09:56 | Progress Note ---
Assessment and Plan Assessment and plan: Acute hypoxic/hypercapneic respiratory failure #Severe ARDS. Suspected possible post Covid pneumonia lung fibrosis. -Unchanged. -refusing BiPAP, currently on HFNC -plan to maintain SpO2 >88% -Had previous treatments with steroid. Was resumed on IV Solu-Medrol on 08/16/2021. -Pulmonology following, assistance appreciated #Metabolic alkalosis Continue monitoring #Heart failure with preserved ejection fraction -TTE: LVEF 55-60% with diastolic dysfunction -will continue to monitor for signs of fluid overload. -On intermittent diuretics. #COVID-19 infection -Has completed treatment. #Type 2 diabetes -Uncontrolled most likely due to steroid -Continue Lantus to 20 SQ daily. Continue sliding scale insulin. #Anxiety -Stable -continue xanax #DVT prophylaxis -Lovenox 40 daily #Deconditioning -Will benefit from SNF after prolonged hospital stay Resolved issues #Sepsis secondary to COVID-19 #Iatrogenic diarrhea #Hypomagnesemia #Hyponatremia #Protein calorie malnutrition #Dysuria #Hypokalemia #Possible UTI #Advanced care planning -Disease education conducted, care plan discussed, diagnoses discussed, prognosis discussed, and patient acknowledges understanding with care plan -Time: +30 minutes Disposition Plan: Continue medical management Total Time Spent with Patient (Minutes): 30 minutes History Interval history: No acute events overnight. Hospitalist Physical - Constitutional Vitals: Temp Pulse Resp BP Pulse Ox 98.3 F 110 H 28 H 122/58 93 08/18/21 03:30 08/18/21 09:00 08/18/21 09:00 08/18/21 09:00 08/18/21 09:00 General appearance: Present: no acute distress, well-nourished, other (Looks tired) - EENT Eyes: Present: PERRL, EOM intact ENT: hearing intact, clear oral mucosa, dentition normal - Neck Neck: Present: supple, normal ROM - Respiratory Respiratory effort: normal Respiratory: bilateral: diminished (On high flow nasal cannula) - Cardiovascular Rhythm: regular Heart Sounds: Present: S1 & S2 - Extremities Extremities: no ischemia, pulses intact, pulses symmetrical, No edema, normal temperature, normal color, Full ROM Peripheral Pulses: within normal limits - Abdominal General gastrointestinal: soft, non-tender, non-distended, normal bowel sounds - Integumentary Integumentary: Present: clear, warm, dry - Psychiatric Psychiatric: appropriate mood/affect, memory intact, cooperative - Neurologic Neurologic: CNII-XII intact - Allied Health Allied health notes reviewed: nursing Results - Labs CBC & Chem 7: 07/23/21 04:35 08/08/21 04:51 Labs: Laboratory Last Values WBC 10.8 K/mm3 (4.5-11.0) 07/23/21 04:35 RBC 3.84 M/mm3 (3.65-5.03) 07/23/21 04:35 Hgb 12.1 gm/dl (10.1-14.3) 07/23/21 04:35 Hct 37.6 % (30.3-42.9) 07/23/21 04:35 MCV 98 fl (79-97) H 07/23/21 04:35 MCH 32 pg (28-32) 07/23/21 04:35 MCHC 32 % (30-34) 07/23/21 04:35 RDW 16.2 % (13.2-15.2) H 07/23/21 04:35 Plt Count 367 K/mm3 (140-440) 07/23/21 04:35 Lymph % (Auto) 7.9 % (13.4-35.0) L 07/23/21 04:35 [place] % (Auto) 5.6 % (0.0-7.3) 07/23/21 04:35 Eos % (Auto) 0.8 % (0.0-4.3) 07/23/21 04:35 Baso % (Auto) 0.4 % (0.0-1.8) 07/23/21 04:35 Lymph # (Auto) 0.9 K/mm3 (1.2-5.4) L 07/23/21 04:35 [place] # (Auto) 0.6 K/mm3 (0.0-0.8) 07/23/21 04:35 Eos # (Auto) 0.1 K/mm3 (0.0-0.4) 07/23/21 04:35 Baso # (Auto) 0.0 K/mm3 (0.0-0.1) 07/23/21 04:35 Add Manual Diff Complete 07/09/21 04:45 Total Counted 100 07/09/21 04:45 Seg Neutrophils % 85.3 % (40.0-70.0) H 07/23/21 04:35 Seg Neuts % (Manual) 82.0 % (40.0-70.0) H 07/09/21 04:45 Band Neutrophils % 1.0 % 05/12/21 04:05 Lymphocytes % (Manual) 13.0 % (13.4-35.0) L 07/09/21 04:45 Monocytes % (Manual) 3.0 % (0.0-7.3) 07/09/21 04:45 Eosinophils % (Manual) 2.0 % (0.0-4.3) 07/09/21 04:45 Nucleated RBC % Not Reportable 07/09/21 04:45 Seg Neutrophils # 9.2 K/mm3 (1.8-7.7) H 07/23/21 04:35 Seg Neutrophils # Man 7.8 K/mm3 (1.8-7.7) H 07/09/21 04:45 Band Neutrophils # 0.0 K/mm3 07/09/21 04:45 Lymphocytes # (Manual) 1.2 K/mm3 (1.2-5.4) 07/09/21 04:45 Abs React Lymphs (Man) 0.0 K/mm3 07/09/21 04:45 Monocytes # (Manual) 0.3 K/mm3 (0.0-0.8) 07/09/21 04:45 Eosinophils # (Manual) 0.2 K/mm3 (0.0-0.4) 07/09/21 04:45 Basophils # (Manual) 0.0 K/mm3 (0.0-0.1) 07/09/21 04:45 Metamyelocytes # 0.0 K/mm3 07/09/21 04:45 Myelocytes # 0.0 K/mm3 07/09/21 04:45 Promyelocytes # 0.0 K/mm3 07/09/21 04:45 Blast Cells # 0.0 K/mm3 07/09/21 04:45 WBC Morphology Not Reportable 07/09/21 04:45 Hypersegmented Neuts Not Reportable 07/09/21 04:45 Hyposegmented Neuts Not Reportable 07/09/21 04:45 Hypogranular Neuts Not Reportable 07/09/21 04:45 Smudge Cells Not Reportable 07/09/21 04:45 Toxic Granulation Not Reportable 07/09/21 04:45 Toxic Vacuolation Not Reportable 07/09/21 04:45 Dohle Bodies Not Reportable 07/09/21 04:45 Pelger-Huet Anomaly Not Reportable 07/09/21 04:45 Janelle Rods Not Reportable 07/09/21 04:45 Platelet Estimate Consistent w auto 07/09/21 04:45 Clumped Platelets Not Reportable 07/09/21 04:45 Plt Clumps, EDTA Not Reportable 07/09/21 04:45 Large Platelets Not Reportable 07/09/21 04:45 Giant Platelets Rare 07/09/21 04:45 Platelet Satelliting Not Reportable 07/09/21 04:45 Plt Morphology Comment Not Reportable 07/09/21 04:45 RBC Morphology Not Reportable 07/09/21 04:45 Dimorphic RBCs Not Reportable 07/09/21 04:45 Polychromasia Not Reportable 07/09/21 04:45 Hypochromasia Few 07/09/21 04:45 Poikilocytosis Not Reportable 07/09/21 04:45 Anisocytosis Not Reportable 07/09/21 04:45 Microcytosis Not Reportable 07/09/21 04:45 Macrocytosis Not Reportable 07/09/21 04:45 Spherocytes Not Reportable 07/09/21 04:45 Pappenheimer Bodies Not Reportable 07/09/21 04:45 Sickle Cells Not Reportable 07/09/21 04:45 Target Cells Not Reportable 07/09/21 04:45 Tear Drop Cells Not Reportable 07/09/21 04:45 Ovalocytes Not Reportable 07/09/21 04:45 Stomatocytes 1+ 07/09/21 04:45 Helmet Cells Not Reportable 07/09/21 04:45 [place] Bodies Not Reportable 07/09/21 04:45 [place] Rings Not Reportable 07/09/21 04:45 Crow Cells Not Reportable 07/09/21 04:45 Bite Cells Not Reportable 07/09/21 04:45 Crenated Cell Not Reportable 07/09/21 04:45 Elliptocytes Not Reportable 07/09/21 04:45 Acanthocytes (Spur) Not Reportable 07/09/21 04:45 Rouleaux Not Reportable 07/09/21 04:45 Hemoglobin C Crystals Not Reportable 07/09/21 04:45 Schistocytes Not Reportable 07/09/21 04:45 Malaria parasites Not Reportable 07/09/21 04:45 Justin Bodies Not Reportable 07/09/21 04:45 Hem Pathologist Commnt No 07/09/21 04:45 D-Dimer 638.35 ng/mlDDU (0-234) H 07/09/21 04:45 ABG pH 7.417 (7.320-7.450) 07/23/21 18:11 POC ABG pCO2 78.3 mmHg (32.0-48.0) H 07/23/21 18:11 ABG pCO2 85.7 mm Hg 07/22/21 12:05 POC ABG pO2 80.7 mmHg (83-108) L 07/23/21 18:11 ABG pO2 66.1 mm Hg (80.0-90.0) L 07/22/21 12:05 POC ABG HCO3 49.3 07/23/21 18:11 ABG HCO3 45.0 mmol/L (20.0-26.0) H 07/22/21 12:05 ABG O2 Saturation 96.7 (0-100) 07/23/21 18:11 ABG O2 Content 16.8 (0.0-44) 07/22/21 12:05 POC ABG Base Excess 20.5 07/23/21 18:11 ABG Base Excess 15.2 mmol/L (-2.0-3.0) H 07/22/21 12:05 ABG Hemoglobin 12.6 (12.0-17.5) 07/23/21 18:11 ABG Oxyhemoglobin 95.7 (94-98) 07/23/21 18:11 ABG Carboxyhemoglobin 1.9 % (0.0-5.0) 07/22/21 12:05 ABG Methemoglobin 0.3 (0.0-1.5) 07/23/21 18:11 ABG Sodium 134.9 mmol/L (136.0-145.0) L 07/23/21 18:11 ABG Potassium 3.9 mmol/L (3.40-4.50) 07/23/21 18:11 ABG Chloride 89.0 mmol/L (98-107) L 07/23/21 18:11 ABG Glucose 200 mg/dL (65-95) H 07/23/21 18:11 Oxyhemoglobin 91.9 % (95.0-99.0) L 07/22/21 12:05 Carboxyhemoglobin 0.7 (0.5-1.5) 07/23/21 18:11 FiO2 100 % 07/22/21 12:05 FiO2 % 100.0 07/23/21 18:11 Sodium 140 mmol/L (137-145) 08/08/21 04:51 Potassium 4.1 mmol/L (3.6-5.0) 08/08/21 04:51 Chloride 92.9 mmol/L (98-107) L 08/08/21 04:51 Carbon Dioxide 39 mmol/L (22-30) H 08/08/21 04:51 Anion Gap 12 mmol/L 08/08/21 04:51 BUN 9 mg/dL (7-17) 08/08/21 04:51 Creatinine < 0.2 mg/dL (0.6-1.2) L 08/08/21 04:51 Estimated GFR > 60 ml/min 08/08/21 04:51 BUN/Creatinine Ratio 45 % 08/08/21 04:51 Glucose 105 mg/dL (65-100) H 08/08/21 04:51 POC Glucose 179 mg/dL (70-105) H 08/18/21 07:27 Hemoglobin A1c 8.5 % (4-6) H 04/18/21 07:36 Calcium 9.4 mg/dL (8.4-10.2) 08/08/21 04:51 Phosphorus 3.70 mg/dL (2.5-4.5) 07/23/21 04:35 Magnesium 2.10 mg/dL (1.7-2.3) 07/23/21 04:35 Ferritin 155.9 ng/mL (10.0-200.0) 07/09/21 04:45 Total Bilirubin < 0.20 mg/dL (0.1-1.2) 07/26/21 09:56 AST 23 units/L (5-40) 07/26/21 09:56 ALT 25 units/L (7-56) 07/26/21 09:56 Alkaline Phosphatase 69 units/L (35-129) 07/26/21 09:56 Lactate Dehydrogenase 475 units/L (91-180) H 06/05/21 05:26 C-Reactive Protein 4.30 mg/dL (0.00-1.30) H 07/09/21 04:45 NT-Pro-B Natriuret Pep 59.45 pg/mL (0-450) 07/07/21 13:40 Total Protein 8.1 g/dL (6.3-8.2) 07/26/21 09:56 Albumin 3.2 g/dL (3.9-5) L 07/26/21 09:56 Albumin/Globulin Ratio 0.7 % 07/26/21 09:56 Triglycerides < 9 mg/dL (2-149) 05/03/21 04:30 Procalcitonin < 0.05 ng/mL (<0.15) 05/23/21 09:50 Arterial Blood Glucose 200 mg/dL (65-95) H 07/23/21 18:11 Arterial Blood Ionized Calcium 4.6 mg/dL (4.6-5.3) 07/23/21 18:11 Coronavirus (PCR) Negative (Negative) 07/25/21 Unknown Amos/IV: Voiding Method External Female Catheter Active Medications - Current Medications Current Medications: Generic Name Dose Route Start Last Admin Trade Name Freq PRN Reason Stop Dose Admin Acetaminophen 650 mg 07/02/21 17:48 08/17/21 22:08 Acetaminophen 325 Mg Tab PO 650 mg Q4H PRN Administration Pain, Mild (1-3) Albuterol 2.5 mg 04/16/21 13:39 04/21/21 20:39 Albuterol 2.5 Mg/3 Ml Nebu IH 2.5 mg Q4HRT PRN Administration Shortness Of Breath Alprazolam 1 mg 08/12/21 11:00 08/17/21 22:07 Alprazolam 1 Mg Tab PO 1 mg BID TUTU Administration Calcium Carbonate/Glycine 500 mg 07/24/21 10:43 08/14/21 22:24 Calcium Carbonate 500 Mg Tab Chew PO 500 mg BID PRN Administration reflux Cholecalciferol 1,000 unit 04/17/21 10:00 08/17/21 11:00 Cholecalciferol (Vit D3) 1000 Unit (25 Mcg) Tab PO 1,000 unit QDAY TUTU Administration Enoxaparin Sodium 40 mg 05/19/21 22:00 08/17/21 22:08 Enoxaparin 40 Mg/0.4 Ml Inj SUB-Q 40 mg QDAY@2200 TUTU Administration Protocol Insulin Glargine 10 units 08/17/21 13:33 Insulin Glargine 100 Units/Ml SUB-Q DAILY TUTU Insulin Human Lispro 0 unit 05/18/21 12:00 08/18/21 07:55 Insulin Lispro 100 Unit/Ml SUB-Q 3 unit ACHS TUTU Administration Protocol Methylprednisolone Sodium Succinate 125 mg 08/14/21 15:00 08/18/21 05:16 Methylprednisolone Sod Succinate 125 Mg/2 Ml Inj IV 125 mg Q8HR TUTU Administration Ondansetron HCl 4 mg 04/16/21 14:00 05/30/21 10:07 Ondansetron 4 Mg/2 Ml Inj IV 4 mg Q8H PRN Administration Nausea And Vomiting Polyethylene Glycol 17 gm 07/16/21 20:00 08/11/21 11:18 Polyethylene Glycol 3350 17 Gm Powder PO 17 gm QDAY PRN Administration Constipation Sodium Chloride 10 ml 04/16/21 13:39 08/14/21 22:28 Sodium Chloride 0.9% 10 Ml Flush Syringe IV 10 ml PRN PRN Administration LINE FLUSH Nutrition/Malnutrition Assess - Dietary Evaluation Nutrition/Malnutrition Findings: Nutrition Notes Start: 04/23/21 07:41 Freq: Status: Active Protocol: Document 08/09/21 17:26 SAQIB (Rec: 08/09/21 17:30 SAQIB [id number]) Nutrition Notes Initial or Follow up Brief Note Subjective/Other Information RD brief note to set next F/U on 09/12 Nutrition Intervention Follow-Up By: 09/12/21 Additional Comments Continue monitoring food tolerance, %PO intake of meals , Hydration, and BM.
[2021-08-18] MEDS: CHOLECALCIFEROL (VIT D3) 1000 UNIT (25 mcg) TAB PO SCH (09:58)
[2021-08-18] MEDS: ALPRAZolam 1 MG TAB PO SCH ×2 (09:58→21:51)
[2021-08-18] MEDS: INSULIN GLARGINE 100 UNITS/ML SUB-Q SCH (09:59)
[2021-08-18] MEDS: ACETAMINOPHEN 325 MG TAB PO PRN (21:37)
[2021-08-18] MEDS: ENOXAPARIN 40 MG/0.4 ML INJ SUB-Q SCH (21:38)
[2021-08-19] MEDS: methylPREDNISolone Sod Succinate 125 MG/2 ML INJ IV SCH ×3 (05:09→21:39)
[2021-08-19] MEDS: ALPRAZolam 1 MG TAB PO SCH ×2 (09:05→21:39)
[2021-08-19] MEDS: INSULIN GLARGINE 100 UNITS/ML SUB-Q SCH (09:05)
[2021-08-19] MEDS: CHOLECALCIFEROL (VIT D3) 1000 UNIT (25 mcg) TAB PO SCH (09:07)
[2021-08-19] MEDS: INSULIN LISPRO 100 UNIT/ML SUB-Q SCH ×4 (09:07→22:13)
[2021-08-19] MEDS: ACETAMINOPHEN 325 MG TAB PO PRN ×2 (09:10→21:39)
--- NOTE | 2021-08-19 14:13 | Progress Note ---
Assessment and Plan Assessment and plan: Acute hypoxic/hypercapneic respiratory failure #Severe ARDS. Suspected possible post Covid pneumonia lung fibrosis. -Unchanged. -refusing BiPAP, currently on HFNC -plan to maintain SpO2 >88% -Had previous treatments with steroid. Was resumed on IV Solu-Medrol on 08/16/2021. -Pulmonology following, assistance appreciated #Metabolic alkalosis Continue monitoring #Heart failure with preserved ejection fraction -TTE: LVEF 55-60% with diastolic dysfunction -will continue to monitor for signs of fluid overload. -On intermittent diuretics. #COVID-19 infection -Has completed treatment. #Type 2 diabetes -Uncontrolled most likely due to steroid -Continue Lantus to 20 SQ daily. Continue sliding scale insulin. #Anxiety -Stable -continue xanax #DVT prophylaxis -Lovenox 40 daily #Deconditioning -Will benefit from SNF after prolonged hospital stay Resolved issues #Sepsis secondary to COVID-19 #Iatrogenic diarrhea #Hypomagnesemia #Hyponatremia #Protein calorie malnutrition #Dysuria #Hypokalemia #Possible UTI #Advanced care planning -Disease education conducted, care plan discussed, diagnoses discussed, prognosis discussed, and patient acknowledges understanding with care plan -Time: +30 minutes Disposition Plan: Continue medical management Total Time Spent with Patient (Minutes): 30 minutes History Interval history: No acute events overnight. Hospitalist Physical - Constitutional Vitals: Temp Pulse Resp BP Pulse Ox 99.2 F 114 H 30 H 130/78 92 08/19/21 12:14 08/19/21 12:00 08/19/21 12:00 08/19/21 12:00 08/19/21 12:00 General appearance: Present: no acute distress, well-nourished, other (Looks tired) - EENT Eyes: Present: PERRL, EOM intact ENT: hearing intact, clear oral mucosa - Neck Neck: Present: supple, normal ROM - Respiratory Respiratory effort: normal Respiratory: bilateral: diminished (On high flow nasal cannula) - Cardiovascular Rhythm: regular Heart Sounds: Present: S1 & S2 - Extremities Extremities: no ischemia, pulses intact, pulses symmetrical, No edema, normal temperature, normal color, Full ROM Peripheral Pulses: within normal limits - Abdominal General gastrointestinal: soft, non-tender, non-distended, normal bowel sounds - Integumentary Integumentary: Present: clear, warm, dry - Psychiatric Psychiatric: appropriate mood/affect, memory intact, cooperative - Neurologic Neurologic: CNII-XII intact, moves all extremities Results - Labs CBC & Chem 7: 07/23/21 04:35 08/08/21 04:51 Labs: Laboratory Last Values WBC 10.8 K/mm3 (4.5-11.0) 07/23/21 04:35 RBC 3.84 M/mm3 (3.65-5.03) 07/23/21 04:35 Hgb 12.1 gm/dl (10.1-14.3) 07/23/21 04:35 Hct 37.6 % (30.3-42.9) 07/23/21 04:35 MCV 98 fl (79-97) H 07/23/21 04:35 MCH 32 pg (28-32) 07/23/21 04:35 MCHC 32 % (30-34) 07/23/21 04:35 RDW 16.2 % (13.2-15.2) H 07/23/21 04:35 Plt Count 367 K/mm3 (140-440) 07/23/21 04:35 Lymph % (Auto) 7.9 % (13.4-35.0) L 07/23/21 04:35 [place] % (Auto) 5.6 % (0.0-7.3) 07/23/21 04:35 Eos % (Auto) 0.8 % (0.0-4.3) 07/23/21 04:35 Baso % (Auto) 0.4 % (0.0-1.8) 07/23/21 04:35 Lymph # (Auto) 0.9 K/mm3 (1.2-5.4) L 07/23/21 04:35 [place] # (Auto) 0.6 K/mm3 (0.0-0.8) 07/23/21 04:35 Eos # (Auto) 0.1 K/mm3 (0.0-0.4) 07/23/21 04:35 Baso # (Auto) 0.0 K/mm3 (0.0-0.1) 07/23/21 04:35 Add Manual Diff Complete 07/09/21 04:45 Total Counted 100 07/09/21 04:45 Seg Neutrophils % 85.3 % (40.0-70.0) H 07/23/21 04:35 Seg Neuts % (Manual) 82.0 % (40.0-70.0) H 07/09/21 04:45 Band Neutrophils % 1.0 % 05/12/21 04:05 Lymphocytes % (Manual) 13.0 % (13.4-35.0) L 07/09/21 04:45 Monocytes % (Manual) 3.0 % (0.0-7.3) 07/09/21 04:45 Eosinophils % (Manual) 2.0 % (0.0-4.3) 07/09/21 04:45 Nucleated RBC % Not Reportable 07/09/21 04:45 Seg Neutrophils # 9.2 K/mm3 (1.8-7.7) H 07/23/21 04:35 Seg Neutrophils # Man 7.8 K/mm3 (1.8-7.7) H 07/09/21 04:45 Band Neutrophils # 0.0 K/mm3 07/09/21 04:45 Lymphocytes # (Manual) 1.2 K/mm3 (1.2-5.4) 07/09/21 04:45 Abs React Lymphs (Man) 0.0 K/mm3 07/09/21 04:45 Monocytes # (Manual) 0.3 K/mm3 (0.0-0.8) 07/09/21 04:45 Eosinophils # (Manual) 0.2 K/mm3 (0.0-0.4) 07/09/21 04:45 Basophils # (Manual) 0.0 K/mm3 (0.0-0.1) 07/09/21 04:45 Metamyelocytes # 0.0 K/mm3 07/09/21 04:45 Myelocytes # 0.0 K/mm3 07/09/21 04:45 Promyelocytes # 0.0 K/mm3 07/09/21 04:45 Blast Cells # 0.0 K/mm3 07/09/21 04:45 WBC Morphology Not Reportable 07/09/21 04:45 Hypersegmented Neuts Not Reportable 07/09/21 04:45 Hyposegmented Neuts Not Reportable 07/09/21 04:45 Hypogranular Neuts Not Reportable 07/09/21 04:45 Smudge Cells Not Reportable 07/09/21 04:45 Toxic Granulation Not Reportable 07/09/21 04:45 Toxic Vacuolation Not Reportable 07/09/21 04:45 Dohle Bodies Not Reportable 07/09/21 04:45 Pelger-Huet Anomaly Not Reportable 07/09/21 04:45 Janelle Rods Not Reportable 07/09/21 04:45 Platelet Estimate Consistent w auto 07/09/21 04:45 Clumped Platelets Not Reportable 07/09/21 04:45 Plt Clumps, EDTA Not Reportable 07/09/21 04:45 Large Platelets Not Reportable 07/09/21 04:45 Giant Platelets Rare 07/09/21 04:45 Platelet Satelliting Not Reportable 07/09/21 04:45 Plt Morphology Comment Not Reportable 07/09/21 04:45 RBC Morphology Not Reportable 07/09/21 04:45 Dimorphic RBCs Not Reportable 07/09/21 04:45 Polychromasia Not Reportable 07/09/21 04:45 Hypochromasia Few 07/09/21 04:45 Poikilocytosis Not Reportable 07/09/21 04:45 Anisocytosis Not Reportable 07/09/21 04:45 Microcytosis Not Reportable 07/09/21 04:45 Macrocytosis Not Reportable 07/09/21 04:45 Spherocytes Not Reportable 07/09/21 04:45 Pappenheimer Bodies Not Reportable 07/09/21 04:45 Sickle Cells Not Reportable 07/09/21 04:45 Target Cells Not Reportable 07/09/21 04:45 Tear Drop Cells Not Reportable 07/09/21 04:45 Ovalocytes Not Reportable 07/09/21 04:45 Stomatocytes 1+ 07/09/21 04:45 Helmet Cells Not Reportable 07/09/21 04:45 [place] Bodies Not Reportable 07/09/21 04:45 [place] Rings Not Reportable 07/09/21 04:45 [place] Cells Not Reportable 07/09/21 04:45 Bite Cells Not Reportable 07/09/21 04:45 Crenated Cell Not Reportable 07/09/21 04:45 Elliptocytes Not Reportable 07/09/21 04:45 Acanthocytes (Spur) Not Reportable 07/09/21 04:45 Rouleaux Not Reportable 07/09/21 04:45 Hemoglobin C Crystals Not Reportable 07/09/21 04:45 Schistocytes Not Reportable 07/09/21 04:45 Malaria parasites Not Reportable 07/09/21 04:45 Justin Bodies Not Reportable 07/09/21 04:45 Hem Pathologist Commnt No 07/09/21 04:45 D-Dimer 638.35 ng/mlDDU (0-234) H 07/09/21 04:45 ABG pH 7.417 (7.320-7.450) 07/23/21 18:11 POC ABG pCO2 78.3 mmHg (32.0-48.0) H 07/23/21 18:11 ABG pCO2 85.7 mm Hg 07/22/21 12:05 POC ABG pO2 80.7 mmHg (83-108) L 07/23/21 18:11 ABG pO2 66.1 mm Hg (80.0-90.0) L 07/22/21 12:05 POC ABG HCO3 49.3 07/23/21 18:11 ABG HCO3 45.0 mmol/L (20.0-26.0) H 07/22/21 12:05 ABG O2 Saturation 96.7 (0-100) 07/23/21 18:11 ABG O2 Content 16.8 (0.0-44) 07/22/21 12:05 POC ABG Base Excess 20.5 07/23/21 18:11 ABG Base Excess 15.2 mmol/L (-2.0-3.0) H 07/22/21 12:05 ABG Hemoglobin 12.6 (12.0-17.5) 07/23/21 18:11 ABG Oxyhemoglobin 95.7 (94-98) 07/23/21 18:11 ABG Carboxyhemoglobin 1.9 % (0.0-5.0) 07/22/21 12:05 ABG Methemoglobin 0.3 (0.0-1.5) 07/23/21 18:11 ABG Sodium 134.9 mmol/L (136.0-145.0) L 07/23/21 18:11 ABG Potassium 3.9 mmol/L (3.40-4.50) 07/23/21 18:11 ABG Chloride 89.0 mmol/L (98-107) L 07/23/21 18:11 ABG Glucose 200 mg/dL (65-95) H 07/23/21 18:11 Oxyhemoglobin 91.9 % (95.0-99.0) L 07/22/21 12:05 Carboxyhemoglobin 0.7 (0.5-1.5) 07/23/21 18:11 FiO2 100 % 07/22/21 12:05 FiO2 % 100.0 07/23/21 18:11 Sodium 140 mmol/L (137-145) 08/08/21 04:51 Potassium 4.1 mmol/L (3.6-5.0) 08/08/21 04:51 Chloride 92.9 mmol/L (98-107) L 08/08/21 04:51 Carbon Dioxide 39 mmol/L (22-30) H 08/08/21 04:51 Anion Gap 12 mmol/L 08/08/21 04:51 BUN 9 mg/dL (7-17) 08/08/21 04:51 Creatinine < 0.2 mg/dL (0.6-1.2) L 08/08/21 04:51 Estimated GFR > 60 ml/min 08/08/21 04:51 BUN/Creatinine Ratio 45 % 08/08/21 04:51 Glucose 105 mg/dL (65-100) H 08/08/21 04:51 POC Glucose 256 mg/dL (70-105) H 08/19/21 11:23 Hemoglobin A1c 8.5 % (4-6) H 04/18/21 07:36 Calcium 9.4 mg/dL (8.4-10.2) 08/08/21 04:51 Phosphorus 3.70 mg/dL (2.5-4.5) 07/23/21 04:35 Magnesium 2.10 mg/dL (1.7-2.3) 07/23/21 04:35 Ferritin 155.9 ng/mL (10.0-200.0) 07/09/21 04:45 Total Bilirubin < 0.20 mg/dL (0.1-1.2) 07/26/21 09:56 AST 23 units/L (5-40) 07/26/21 09:56 ALT 25 units/L (7-56) 07/26/21 09:56 Alkaline Phosphatase 69 units/L (35-129) 07/26/21 09:56 Lactate Dehydrogenase 475 units/L (91-180) H 06/05/21 05:26 C-Reactive Protein 4.30 mg/dL (0.00-1.30) H 07/09/21 04:45 NT-Pro-B Natriuret Pep 59.45 pg/mL (0-450) 07/07/21 13:40 Total Protein 8.1 g/dL (6.3-8.2) 07/26/21 09:56 Albumin 3.2 g/dL (3.9-5) L 07/26/21 09:56 Albumin/Globulin Ratio 0.7 % 07/26/21 09:56 Triglycerides < 9 mg/dL (2-149) 05/03/21 04:30 Procalcitonin < 0.05 ng/mL (<0.15) 05/23/21 09:50 Arterial Blood Glucose 200 mg/dL (65-95) H 07/23/21 18:11 Arterial Blood Ionized Calcium 4.6 mg/dL (4.6-5.3) 07/23/21 18:11 Coronavirus (PCR) Negative (Negative) 07/25/21 Unknown Amos/IV: Voiding Method External Female Catheter Active Medications - Current Medications Current Medications: Generic Name Dose Route Start Last Admin Trade Name Freq PRN Reason Stop Dose Admin Acetaminophen 650 mg 07/02/21 17:48 08/19/21 09:10 Acetaminophen 325 Mg Tab PO 650 mg Q4H PRN Administration Pain, Mild (1-3) Albuterol 2.5 mg 04/16/21 13:39 04/21/21 20:39 Albuterol 2.5 Mg/3 Ml Nebu IH 2.5 mg Q4HRT PRN Administration Shortness Of Breath Alprazolam 1 mg 08/12/21 11:00 08/19/21 09:05 Alprazolam 1 Mg Tab PO 1 mg BID TUTU Administration Calcium Carbonate/Glycine 500 mg 07/24/21 10:43 08/14/21 22:24 Calcium Carbonate 500 Mg Tab Chew PO 500 mg BID PRN Administration reflux Cholecalciferol 1,000 unit 04/17/21 10:00 08/19/21 09:07 Cholecalciferol (Vit D3) 1000 Unit (25 Mcg) Tab PO 1,000 unit QDAY TUTU Administration Enoxaparin Sodium 40 mg 05/19/21 22:00 08/18/21 21:38 Enoxaparin 40 Mg/0.4 Ml Inj SUB-Q 40 mg QDAY@2200 TUTU Administration Protocol Insulin Glargine 10 units 08/17/21 13:33 08/19/21 09:05 Insulin Glargine 100 Units/Ml SUB-Q 10 units DAILY TUTU Administration Insulin Human Lispro 0 unit 05/18/21 12:00 08/19/21 12:37 Insulin Lispro 100 Unit/Ml SUB-Q 6 unit ACHS TUTU Administration Protocol Methylprednisolone Sodium Succinate 125 mg 08/14/21 15:00 08/19/21 05:09 Methylprednisolone Sod Succinate 125 Mg/2 Ml Inj IV 125 mg Q8HR TUTU Administration Ondansetron HCl 4 mg 04/16/21 14:00 05/30/21 10:07 Ondansetron 4 Mg/2 Ml Inj IV 4 mg Q8H PRN Administration Nausea And Vomiting Polyethylene Glycol 17 gm 07/16/21 20:00 08/11/21 11:18 Polyethylene Glycol 3350 17 Gm Powder PO 17 gm QDAY PRN Administration Constipation Sodium Chloride 10 ml 04/16/21 13:39 08/18/21 21:39 Sodium Chloride 0.9% 10 Ml Flush Syringe IV 10 ml PRN PRN Administration LINE FLUSH Nutrition/Malnutrition Assess - Dietary Evaluation Nutrition/Malnutrition Findings: Nutrition Notes Start: 04/23/21 07:41 Freq: Status: Active Protocol: Document 08/09/21 17:26 SAQIB (Rec: 08/09/21 17:30 SAQIB [id number]) Nutrition Notes Initial or Follow up Brief Note Subjective/Other Information RD brief note to set next F/U on 09/12 Nutrition Intervention Follow-Up By: 09/12/21 Additional Comments Continue monitoring food tolerance, %PO intake of meals , Hydration, and BM.
[2021-08-19] MEDS: ENOXAPARIN 40 MG/0.4 ML INJ SUB-Q SCH (21:40)
[2021-08-20] MEDS: methylPREDNISolone Sod Succinate 125 MG/2 ML INJ IV SCH ×3 (06:35→21:19)
[2021-08-20] MEDS: INSULIN LISPRO 100 UNIT/ML SUB-Q SCH ×4 (08:05→22:50)
[2021-08-20] MEDS: INSULIN GLARGINE 100 UNITS/ML SUB-Q SCH (09:35)
[2021-08-20] MEDS: CHOLECALCIFEROL (VIT D3) 1000 UNIT (25 mcg) TAB PO SCH (09:35)
[2021-08-20] MEDS: ALPRAZolam 1 MG TAB PO SCH ×2 (09:35→21:20)
--- NOTE | 2021-08-20 11:43 | Progress Note ---
Assessment and Plan Assessment and plan: Admit 04/16 from ER 50 YO Female with GERD, Obesity, HLD presents to ED for evaluation. Patient reports "I cannot breathe". Patient states that she has experienced subjective fever, shortness of breath, malaise, body aches, dry cough, and shortness of breath over the past 1 week with progressively worsening symptoms over the same timeframe. EMS was notified and upon arrival the patient was found to be in distress and subsequent transported to [facility] for further care and evaluation of the aforementioned symptoms. The patient was seen and evaluated in the emergency department. All lab and imaging studies reviewed. Patient found to have a pulse oximetry of 86% with exertion on room air which is consistent with acute hypoxemic respiratory failure. Patient with chest x-ray which revealed bilateral pneumonia. Patient admitted to medical floor and initiated him on pneumonia protocol as well as coronavirus protocol. Patient knowledges fever but denies chills, chest pain, palpitation, skin rash, recent ill contacts, or known exposure to COVID-19. Prior admission on 01/21/2017 reviewed. All m edication listed at time of admission has been reconciled. Patient is unvaccinated for coronavirus infection. CXR: Bilateral Pneumonia 04/17: Patient seen and examined, still uncomfortable with Hypoxic respiratory failure and on oxygen, will continue to steroids therapy, start patient on Remdesivir, ID consulted, Pulmonary consult placed. 04/18: Patient seen and examined, she is currently being changed to High flow NC due to worsening HYPOXIA, will transfer to IMCU, Pulmonary and ID following. Will also give a dose of Lasix today. Monitor Inflammatory markers. 04/19: Patient seen and examined still on high flow due to hypoxia. Appears a bit more comfortable today than yesterday. Cough has decreased in frequency. We will continue high dose Dexameathasone to complete 10 days. continue on Remdesivir 200 mg IV q day x 1 followed by 100 mg IV q day x 4 days -Obtain q48-72h inflammatory markers - ferritin, Ddimer, CRP, LDH Will also give lasix daily for the next 3 days and monitor renal function. Family updated. Continue prone positioning as tolerated 04/20: Patient has some desaturation episodes yesterday was placed on BiPAP. Discussed with ICU team for bed availability for patient to be transferred up. Continue prone position as tolerated. 8/8: Patient remains with profound hypoxia secondary to COVID pneumonia. -Continue steroids -Continue remedesir -S/P Actmera 04/22: Patient remains on steroids and remdesivir. ABG shows persistent hypoxia. We will continue current management additional trial of Lasix for the next few days to see if any improvement. Monitor inflammatory markers as needed. Prognosis is guarded remains on high flow 04/23; patient was treated with remdesivir and Actemra. Continue steroid. Patient's prognosis is guarded. 04/24; patient is on steroid. Patient is currently on BiPAP. Prognosis is guarded. Pulmonary is following. Patient was given Lasix and Ativan. 04/25; continue steroid. Patient was on 40 L of high flow oxygen with saturation was 88%. Pulmonary is following. Prognosis is guarded. Patient was given lasix and ativan. 04/26; patient is on BiPAP and Precedex. Prognosis is guarded. 04/27; patient is on BiPAP and Precedex. Patient will finish steroid today and will start on Solu-Medrol tomorrow. Prognosis is guarded. Blood pressure is better today. Hold Lasix. 04/28 patient is on 100 Fio2 via BIPAP. moderately dyspneic, pulmonary note reviewed, lab results reviewed 04/29 no acute events- see systems review above 04/30 no acute events overnight - on airvo today- TPN started -see systems review above 05-01 no acute events overnight- tolerating airvo- see systems review above 05-02 no acute events overnight; tolerating airvo this AM- see systems review above 05/03: Patient remains on full high flow oxygen. No acute events overnight 05/04: Patient remains on BiPAP this morning at 70%. Returning to service Patient initially managed in the ICU and then transfered to the floor 06/25: Patient remains on full oxygen with high flow, encouraged to prone at night time. Spoke to Night nursing staff to ensure assisting the patient Prone. Continue steroid therapy, will discuss with Pulmonary about trying additional lasix. Plan discussed with patient and family. 06/26: Patient already on Lasix daily, Hypokalemia- Replace K. Continue to encourage Proning. Remains on high flow. 06/27: Continue supportive care unfortunately had to go up on her oxygen to 70% FiO2 prognosis remains guarded continue to encourage proning. 10/15: Continue supportive care, Encourage Proning 06/29: Mild hypokalemia noted yesterday will be replaced as it was not corrected yesterday we will recheck BMP in a.m. Continue IV Lasix. Monitor renal function. 06/30: Give additional potassium for better control. Continue supportive care. Continue IV Lasix. Continue to encourage proning again discussed with the patient via band builder. He verbalized understanding 07/01: Brief summary patient seen and examined this morning continues to show improvement FiO2 demand down to 45% on 30 L on high flow. Patient is a 50-year-old male who was admitted with COVID-19 today is day 76 of her hospital stay she was initially managed in the ICU and now has been transferred to the floor. She remains on low-dose steroid therapy following completion of remdesivir and recommended steroid. She is encouraged to continue to prone and the nights that she has done this has shown some improvement. She is still probably a long way from being discharged. Intermittent monitoring off electrolytes as she has had some episode of hyponatremia and hypomagnesemia is recommended. She is concerned about puffiness in her face which is likely steroid-induced I have discussed this with her that it will improve following discontinuation of steroid. In the meantime I have held her Lasix as we have been diuresing her for majority of her stay and this should be reevaluated the next few days to see if she will benefit from further diuresis. Pulmonary is on board 08/20: Return to service today. Remains on high flow oxygen, not tolerating weaning, continue current management Currently undergoing management and awaiting for possible home hospice Acute hypoxic/hypercapneic respiratory failure #Severe ARDS. Suspected possible post Covid pneumonia lung fibrosis. -Unchanged. -refusing BiPAP, currently on HFNC -plan to maintain SpO2 >88% -Had previous treatments with steroid. Was resumed on IV Solu-Medrol on 08/16/2021. -Pulmonology following, assistance appreciated #Metabolic alkalosis Continue monitoring #Heart failure with preserved ejection fraction -TTE: LVEF 55-60% with diastolic dysfunction -will continue to monitor for signs of fluid overload. -On intermittent diuretics. #COVID-19 infection -Has completed treatment. #Type 2 diabetes -Uncontrolled most likely due to steroid -Continue Lantus to 20 SQ daily. Continue sliding scale insulin. #Anxiety -Stable -continue xanax #DVT prophylaxis -Lovenox 40 daily #Deconditioning -Will benefit from SNF after prolonged hospital stay Resolved issues #Sepsis secondary to COVID-19 #Iatrogenic diarrhea #Hypomagnesemia #Hyponatremia #Protein calorie malnutrition #Dysuria #Hypokalemia #Possible UTI #Advanced care planning -Disease education conducted, care plan discussed, diagnoses discussed, prognosis discussed, and patient acknowledges understanding with care plan -Time: +30 minutes Disposition Plan: Continue medical management Total Time Spent with Patient (Minutes): 30 minutes History Interval history: Patient seen and examined, still with shortness of breath, sitting up, remains on high flow. Hospitalist Physical - Physical exam Narrative exam: General appearance: Present: no acute distress, well-nourished. - EENT Eyes: Present: PERRL, EOM intact ENT: hearing intact, clear oral mucosa - Neck Neck: Present: supple, normal ROM - Respiratory Respiratory effort: normal Respiratory: bilateral: diminished (On high flow nasal cannula) - Cardiovascular Rhythm: regular Heart Sounds: Present: S1 & S2 - Extremities Extremities: no ischemia, pulses intact, pulses symmetrical, No edema, normal temperature, normal color, Full ROM Peripheral Pulses: within normal limits - Abdominal General gastrointestinal: soft, non-tender, non-distended, normal bowel sounds - Integumentary Integumentary: Present: clear, warm, dry - Psychiatric Psychiatric: appropriate mood/affect, memory intact, cooperative - Neurologic Neurologic: CNII-XII intact, moves all extremities - Constitutional Vitals: Temp Pulse Resp BP Pulse Ox 97.7 F 116 H 31 H 111/50 94 08/20/21 08:00 08/20/21 11:00 08/20/21 11:00 08/20/21 11:00 08/20/21 11:00 General appearance: Present: no acute distress, well-nourished, other (Looks tired) Results - Labs CBC & Chem 7: 07/23/21 04:35 08/08/21 04:51 Labs: Laboratory Last Values WBC 10.8 K/mm3 (4.5-11.0) 07/23/21 04:35 RBC 3.84 M/mm3 (3.65-5.03) 07/23/21 04:35 Hgb 12.1 gm/dl (10.1-14.3) 07/23/21 04:35 Hct 37.6 % (30.3-42.9) 07/23/21 04:35 MCV 98 fl (79-97) H 07/23/21 04:35 MCH 32 pg (28-32) 07/23/21 04:35 MCHC 32 % (30-34) 07/23/21 04:35 RDW 16.2 % (13.2-15.2) H 07/23/21 04:35 Plt Count 367 K/mm3 (140-440) 07/23/21 04:35 Lymph % (Auto) 7.9 % (13.4-35.0) L 07/23/21 04:35 Stark % (Auto) 5.6 % (0.0-7.3) 07/23/21 04:35 Eos % (Auto) 0.8 % (0.0-4.3) 07/23/21 04:35 Baso % (Auto) 0.4 % (0.0-1.8) 07/23/21 04:35 Lymph # (Auto) 0.9 K/mm3 (1.2-5.4) L 07/23/21 04:35 Stark # (Auto) 0.6 K/mm3 (0.0-0.8) 07/23/21 04:35 Eos # (Auto) 0.1 K/mm3 (0.0-0.4) 07/23/21 04:35 Baso # (Auto) 0.0 K/mm3 (0.0-0.1) 07/23/21 04:35 Add Manual Diff Complete 07/09/21 04:45 Total Counted 100 07/09/21 04:45 Seg Neutrophils % 85.3 % (40.0-70.0) H 07/23/21 04:35 Seg Neuts % (Manual) 82.0 % (40.0-70.0) H 07/09/21 04:45 Band Neutrophils % 1.0 % 05/12/21 04:05 Lymphocytes % (Manual) 13.0 % (13.4-35.0) L 07/09/21 04:45 Monocytes % (Manual) 3.0 % (0.0-7.3) 07/09/21 04:45 Eosinophils % (Manual) 2.0 % (0.0-4.3) 07/09/21 04:45 Nucleated RBC % Not Reportable 07/09/21 04:45 Seg Neutrophils # 9.2 K/mm3 (1.8-7.7) H 07/23/21 04:35 Seg Neutrophils # Man 7.8 K/mm3 (1.8-7.7) H 07/09/21 04:45 Band Neutrophils # 0.0 K/mm3 07/09/21 04:45 Lymphocytes # (Manual) 1.2 K/mm3 (1.2-5.4) 07/09/21 04:45 Abs React Lymphs (Man) 0.0 K/mm3 07/09/21 04:45 Monocytes # (Manual) 0.3 K/mm3 (0.0-0.8) 07/09/21 04:45 Eosinophils # (Manual) 0.2 K/mm3 (0.0-0.4) 07/09/21 04:45 Basophils # (Manual) 0.0 K/mm3 (0.0-0.1) 07/09/21 04:45 Metamyelocytes # 0.0 K/mm3 07/09/21 04:45 Myelocytes # 0.0 K/mm3 07/09/21 04:45 Promyelocytes # 0.0 K/mm3 07/09/21 04:45 Blast Cells # 0.0 K/mm3 07/09/21 04:45 WBC Morphology Not Reportable 07/09/21 04:45 Hypersegmented Neuts Not Reportable 07/09/21 04:45 Hyposegmented Neuts Not Reportable 07/09/21 04:45 Hypogranular Neuts Not Reportable 07/09/21 04:45 Smudge Cells Not Reportable 07/09/21 04:45 Toxic Granulation Not Reportable 07/09/21 04:45 Toxic Vacuolation Not Reportable 07/09/21 04:45 Dohle Bodies Not Reportable 07/09/21 04:45 Pelger-Huet Anomaly Not Reportable 07/09/21 04:45 Janelle Rods Not Reportable 07/09/21 04:45 Platelet Estimate Consistent w auto 07/09/21 04:45 Clumped Platelets Not Reportable 07/09/21 04:45 Plt Clumps, EDTA Not Reportable 07/09/21 04:45 Large Platelets Not Reportable 07/09/21 04:45 Giant Platelets Rare 07/09/21 04:45 Platelet Satelliting Not Reportable 07/09/21 04:45 Plt Morphology Comment Not Reportable 07/09/21 04:45 RBC Morphology Not Reportable 07/09/21 04:45 Dimorphic RBCs Not Reportable 07/09/21 04:45 Polychromasia Not Reportable 07/09/21 04:45 Hypochromasia Few 07/09/21 04:45 Poikilocytosis Not Reportable 07/09/21 04:45 Anisocytosis Not Reportable 07/09/21 04:45 Microcytosis Not Reportable 07/09/21 04:45 Macrocytosis Not Reportable 07/09/21 04:45 Spherocytes Not Reportable 07/09/21 04:45 Pappenheimer Bodies Not Reportable 07/09/21 04:45 Sickle Cells Not Reportable 07/09/21 04:45 Target Cells Not Reportable 07/09/21 04:45 Tear Drop Cells Not Reportable 07/09/21 04:45 Ovalocytes Not Reportable 07/09/21 04:45 Stomatocytes 1+ 07/09/21 04:45 Helmet Cells Not Reportable 07/09/21 04:45 Ahuja-Combes Bodies Not Reportable 07/09/21 04:45 [place] Rings Not Reportable 07/09/21 04:45 Crow Cells Not Reportable 07/09/21 04:45 Bite Cells Not Reportable 07/09/21 04:45 Crenated Cell Not Reportable 07/09/21 04:45 Elliptocytes Not Reportable 07/09/21 04:45 Acanthocytes (Spur) Not Reportable 07/09/21 04:45 Rouleaux Not Reportable 07/09/21 04:45 Hemoglobin C Crystals Not Reportable 07/09/21 04:45 Schistocytes Not Reportable 07/09/21 04:45 Malaria parasites Not Reportable 07/09/21 04:45 Justin Bodies Not Reportable 07/09/21 04:45 Hem Pathologist Commnt No 07/09/21 04:45 D-Dimer 638.35 ng/mlDDU (0-234) H 07/09/21 04:45 ABG pH 7.417 (7.320-7.450) 07/23/21 18:11 POC ABG pCO2 78.3 mmHg (32.0-48.0) H 07/23/21 18:11 ABG pCO2 85.7 mm Hg 07/22/21 12:05 POC ABG pO2 80.7 mmHg (83-108) L 07/23/21 18:11 ABG pO2 66.1 mm Hg (80.0-90.0) L 07/22/21 12:05 POC ABG HCO3 49.3 07/23/21 18:11 ABG HCO3 45.0 mmol/L (20.0-26.0) H 07/22/21 12:05 ABG O2 Saturation 96.7 (0-100) 07/23/21 18:11 ABG O2 Content 16.8 (0.0-44) 07/22/21 12:05 POC ABG Base Excess 20.5 07/23/21 18:11 ABG Base Excess 15.2 mmol/L (-2.0-3.0) H 07/22/21 12:05 ABG Hemoglobin 12.6 (12.0-17.5) 07/23/21 18:11 ABG Oxyhemoglobin 95.7 (94-98) 07/23/21 18:11 ABG Carboxyhemoglobin 1.9 % (0.0-5.0) 07/22/21 12:05 ABG Methemoglobin 0.3 (0.0-1.5) 07/23/21 18:11 ABG Sodium 134.9 mmol/L (136.0-145.0) L 07/23/21 18:11 ABG Potassium 3.9 mmol/L (3.40-4.50) 07/23/21 18:11 ABG Chloride 89.0 mmol/L (98-107) L 07/23/21 18:11 ABG Glucose 200 mg/dL (65-95) H 07/23/21 18:11 Oxyhemoglobin 91.9 % (95.0-99.0) L 07/22/21 12:05 Carboxyhemoglobin 0.7 (0.5-1.5) 07/23/21 18:11 FiO2 100 % 07/22/21 12:05 FiO2 % 100.0 07/23/21 18:11 Sodium 140 mmol/L (137-145) 08/08/21 04:51 Potassium 4.1 mmol/L (3.6-5.0) 08/08/21 04:51 Chloride 92.9 mmol/L (98-107) L 08/08/21 04:51 Carbon Dioxide 39 mmol/L (22-30) H 08/08/21 04:51 Anion Gap 12 mmol/L 08/08/21 04:51 BUN 9 mg/dL (7-17) 08/08/21 04:51 Creatinine < 0.2 mg/dL (0.6-1.2) L 08/08/21 04:51 Estimated GFR > 60 ml/min 08/08/21 04:51 BUN/Creatinine Ratio 45 % 08/08/21 04:51 Glucose 105 mg/dL (65-100) H 08/08/21 04:51 POC Glucose 280 mg/dL (70-105) H 08/20/21 11:18 Hemoglobin A1c 8.5 % (4-6) H 04/18/21 07:36 Calcium 9.4 mg/dL (8.4-10.2) 08/08/21 04:51 Phosphorus 3.70 mg/dL (2.5-4.5) 07/23/21 04:35 Magnesium 2.10 mg/dL (1.7-2.3) 07/23/21 04:35 Ferritin 155.9 ng/mL (10.0-200.0) 07/09/21 04:45 Total Bilirubin < 0.20 mg/dL (0.1-1.2) 07/26/21 09:56 AST 23 units/L (5-40) 07/26/21 09:56 ALT 25 units/L (7-56) 07/26/21 09:56 Alkaline Phosphatase 69 units/L (35-129) 07/26/21 09:56 Lactate Dehydrogenase 475 units/L (91-180) H 06/05/21 05:26 C-Reactive Protein 4.30 mg/dL (0.00-1.30) H 07/09/21 04:45 NT-Pro-B Natriuret Pep 59.45 pg/mL (0-450) 07/07/21 13:40 Total Protein 8.1 g/dL (6.3-8.2) 07/26/21 09:56 Albumin 3.2 g/dL (3.9-5) L 07/26/21 09:56 Albumin/Globulin Ratio 0.7 % 07/26/21 09:56 Triglycerides < 9 mg/dL (2-149) 05/03/21 04:30 Procalcitonin < 0.05 ng/mL (<0.15) 05/23/21 09:50 Arterial Blood Glucose 200 mg/dL (65-95) H 07/23/21 18:11 Arterial Blood Ionized Calcium 4.6 mg/dL (4.6-5.3) 07/23/21 18:11 Coronavirus (PCR) Negative (Negative) 07/25/21 Unknown Amos/IV: Voiding Method External Female Catheter Active Medications - Current Medications Current Medications: Generic Name Dose Route Start Last Admin Trade Name Freq PRN Reason Stop Dose Admin Acetaminophen 650 mg 07/02/21 17:48 08/19/21 21:39 Acetaminophen 325 Mg Tab PO 650 mg Q4H PRN Administration Pain, Mild (1-3) Albuterol 2.5 mg 04/16/21 13:39 04/21/21 20:39 Albuterol 2.5 Mg/3 Ml Nebu IH 2.5 mg Q4HRT PRN Administration Shortness Of Breath Alprazolam 1 mg 08/12/21 11:00 08/20/21 09:35 Alprazolam 1 Mg Tab PO 1 mg BID TUTU Administration Calcium Carbonate/Glycine 500 mg 07/24/21 10:43 08/14/21 22:24 Calcium Carbonate 500 Mg Tab Chew PO 500 mg BID PRN Administration reflux Cholecalciferol 1,000 unit 04/17/21 10:00 08/20/21 09:35 Cholecalciferol (Vit D3) 1000 Unit (25 Mcg) Tab PO 1,000 unit QDAY TUTU Administration Enoxaparin Sodium 40 mg 05/19/21 22:00 08/19/21 21:40 Enoxaparin 40 Mg/0.4 Ml Inj SUB-Q 40 mg QDAY@2200 [facility] Administration Protocol Insulin Glargine 10 units 08/17/21 13:33 08/20/21 09:35 Insulin Glargine 100 Units/Ml SUB-Q 10 units DAILY TUTU Administration Insulin Human Lispro 0 unit 05/18/21 12:00 08/20/21 08:05 Insulin Lispro 100 Unit/Ml SUB-Q Not Given ACHS TUTU Protocol Methylprednisolone Sodium Succinate 125 mg 08/14/21 15:00 08/20/21 06:35 Methylprednisolone Sod Succinate 125 Mg/2 Ml Inj IV 125 mg Q8HR TUTU Administration Ondansetron HCl 4 mg 04/16/21 14:00 05/30/21 10:07 Ondansetron 4 Mg/2 Ml Inj IV 4 mg Q8H PRN Administration Nausea And Vomiting Polyethylene Glycol 17 gm 07/16/21 20:00 08/11/21 11:18 Polyethylene Glycol 3350 17 Gm Powder PO 17 gm QDAY PRN Administration Constipation Sodium Chloride 10 ml 04/16/21 13:39 08/18/21 21:39 Sodium Chloride 0.9% 10 Ml Flush Syringe IV 10 ml PRN PRN Administration LINE FLUSH Nutrition/Malnutrition Assess - Dietary Evaluation Nutrition/Malnutrition Findings: Nutrition Notes Start: 04/23/21 07:41 Freq: Status: Active Protocol: Document 08/09/21 17:26 SAQIB (Rec: 08/09/21 17:30 SAQIB [id number]) Nutrition Notes Initial or Follow up Brief Note Subjective/Other Information RD brief note to set next F/U on 09/12 Nutrition Intervention Follow-Up By: 09/12/21 Additional Comments Continue monitoring food tolerance, %PO intake of meals , Hydration, and BM.
[2021-08-20] MEDS: ACETAMINOPHEN 325 MG TAB PO PRN (21:20)
[2021-08-20] MEDS: ENOXAPARIN 40 MG/0.4 ML INJ SUB-Q SCH (21:21)
[2021-08-21] MEDS: methylPREDNISolone Sod Succinate 125 MG/2 ML INJ IV SCH ×3 (06:28→22:30)
[2021-08-21] MEDS: INSULIN GLARGINE 100 UNITS/ML SUB-Q SCH (09:16)
[2021-08-21] MEDS: ACETAMINOPHEN 325 MG TAB PO PRN ×2 (09:16→22:28)
[2021-08-21] MEDS: CHOLECALCIFEROL (VIT D3) 1000 UNIT (25 mcg) TAB PO SCH (09:16)
[2021-08-21] MEDS: ALPRAZolam 1 MG TAB PO SCH ×2 (09:16→22:30)
[2021-08-21] MEDS: INSULIN LISPRO 100 UNIT/ML SUB-Q SCH ×4 (09:17→22:29)
--- NOTE | 2021-08-21 13:18 | Progress Note ---
Assessment and Plan Assessment and plan: Admit 04/16 from ER 50 YO Female with GERD, Obesity, HLD presents to ED for evaluation. Patient reports "I cannot breathe". Patient states that she has experienced subjective fever, shortness of breath, malaise, body aches, dry cough, and shortness of breath over the past 1 week with progressively worsening symptoms over the same timeframe. EMS was notified and upon arrival the patient was found to be in distress and subsequent transported to [facility] for further care and evaluation of the aforementioned symptoms. The patient was seen and evaluated in the emergency department. All lab and imaging studies reviewed. Patient found to have a pulse oximetry of 86% with exertion on room air which is consistent with acute hypoxemic respiratory failure. Patient with chest x-ray which revealed bilateral pneumonia. Patient admitted to medical floor and initiated him on pneumonia protocol as well as coronavirus protocol. Patient knowledges fever but denies chills, chest pain, palpitation, skin rash, recent ill contacts, or known exposure to COVID-19. Prior admission on 01/21/2017 reviewed. All m edication listed at time of admission has been reconciled. Patient is unvaccinated for coronavirus infection. CXR: Bilateral Pneumonia 04/17: Patient seen and examined, still uncomfortable with Hypoxic respiratory failure and on oxygen, will continue to steroids therapy, start patient on Remdesivir, ID consulted, Pulmonary consult placed. 04/18: Patient seen and examined, she is currently being changed to High flow NC due to worsening HYPOXIA, will transfer to IMCU, Pulmonary and ID following. Will also give a dose of Lasix today. Monitor Inflammatory markers. 04/19: Patient seen and examined still on high flow due to hypoxia. Appears a bit more comfortable today than yesterday. Cough has decreased in frequency. We will continue high dose Dexameathasone to complete 10 days. continue on Remdesivir 200 mg IV q day x 1 followed by 100 mg IV q day x 4 days -Obtain q48-72h inflammatory markers - ferritin, Ddimer, CRP, LDH Will also give lasix daily for the next 3 days and monitor renal function. Family updated. Continue prone positioning as tolerated 04/20: Patient has some desaturation episodes yesterday was placed on BiPAP. Discussed with ICU team for bed availability for patient to be transferred up. Continue prone position as tolerated. 8/8: Patient remains with profound hypoxia secondary to COVID pneumonia. -Continue steroids -Continue remedesir -S/P Actmera 04/22: Patient remains on steroids and remdesivir. ABG shows persistent hypoxia. We will continue current management additional trial of Lasix for the next few days to see if any improvement. Monitor inflammatory markers as needed. Prognosis is guarded remains on high flow 04/23; patient was treated with remdesivir and Actemra. Continue steroid. Patient's prognosis is guarded. 04/24; patient is on steroid. Patient is currently on BiPAP. Prognosis is guarded. Pulmonary is following. Patient was given Lasix and Ativan. 04/25; continue steroid. Patient was on 40 L of high flow oxygen with saturation was 88%. Pulmonary is following. Prognosis is guarded. Patient was given lasix and ativan. 04/26; patient is on BiPAP and Precedex. Prognosis is guarded. 04/27; patient is on BiPAP and Precedex. Patient will finish steroid today and will start on Solu-Medrol tomorrow. Prognosis is guarded. Blood pressure is better today. Hold Lasix. 04/28 patient is on 100 Fio2 via BIPAP. moderately dyspneic, pulmonary note reviewed, lab results reviewed 04/29 no acute events- see systems review above 04/30 no acute events overnight - on airvo today- TPN started -see systems review above 05-01 no acute events overnight- tolerating airvo- see systems review above 05-02 no acute events overnight; tolerating airvo this AM- see systems review above 05/03: Patient remains on full high flow oxygen. No acute events overnight 05/04: Patient remains on BiPAP this morning at 70%. Returning to service Patient initially managed in the ICU and then transfered to the floor 06/25: Patient remains on full oxygen with high flow, encouraged to prone at night time. Spoke to Night nursing staff to ensure assisting the patient Prone. Continue steroid therapy, will discuss with Pulmonary about trying additional lasix. Plan discussed with patient and family. 06/26: Patient already on Lasix daily, Hypokalemia- Replace K. Continue to encourage Proning. Remains on high flow. 06/27: Continue supportive care unfortunately had to go up on her oxygen to 70% FiO2 prognosis remains guarded continue to encourage proning. 10/15: Continue supportive care, Encourage Proning 06/29: Mild hypokalemia noted yesterday will be replaced as it was not corrected yesterday we will recheck BMP in a.m. Continue IV Lasix. Monitor renal function. 06/30: Give additional potassium for better control. Continue supportive care. Continue IV Lasix. Continue to encourage proning again discussed with the patient via electrolysis operator. He verbalized understanding 07/01: Brief summary patient seen and examined this morning continues to show improvement FiO2 demand down to 45% on 30 L on high flow. Patient is a 50-year-old male who was admitted with COVID-19 today is day 76 of her hospital stay she was initially managed in the ICU and now has been transferred to the floor. She remains on low-dose steroid therapy following completion of remdesivir and recommended steroid. She is encouraged to continue to prone and the nights that she has done this has shown some improvement. She is still probably a long way from being discharged. Intermittent monitoring off electrolytes as she has had some episode of hyponatremia and hypomagnesemia is recommended. She is concerned about puffiness in her face which is likely steroid-induced I have discussed this with her that it will improve following discontinuation of steroid. In the meantime I have held her Lasix as we have been diuresing her for majority of her stay and this should be reevaluated the next few days to see if she will benefit from further diuresis. Pulmonary is on board 08/20: Return to service today. Remains on high flow oxygen, not tolerating weaning, continue current management Currently undergoing management and awaiting for possible home hospice 08/21: Patient still on high flow and NRB, still severely Hypoxic. Continue supportive care. Prognosis guarded. Acute hypoxic/hypercapneic respiratory failure #Severe ARDS. Suspected possible post Covid pneumonia lung fibrosis. -Unchanged. -refusing BiPAP, currently on HFNC -plan to maintain SpO2 >88% -Had previous treatments with steroid. Was resumed on IV Solu-Medrol on 08/16/2021. -Pulmonology following, assistance appreciated #Metabolic alkalosis Continue monitoring #Heart failure with preserved ejection fraction -TTE: LVEF 55-60% with diastolic dysfunction -will continue to monitor for signs of fluid overload. -On intermittent diuretics. #COVID-19 infection -Has completed treatment. #Type 2 diabetes -Uncontrolled most likely due to steroid -Continue Lantus to 20 SQ daily. Continue sliding scale insulin. #Anxiety -Stable -continue xanax #DVT prophylaxis -Lovenox 40 daily #Deconditioning -Will benefit from SNF after prolonged hospital stay Resolved issues #Sepsis secondary to COVID-19 #Iatrogenic diarrhea #Hypomagnesemia #Hyponatremia #Protein calorie malnutrition #Dysuria #Hypokalemia #Possible UTI #Advanced care planning -Disease education conducted, care plan discussed, diagnoses discussed, progn osis discussed, and patient acknowledges understanding with care plan -Time: +30 minutes Disposition Plan: Continue medical management Total Time Spent with Patient (Minutes): 30 minutes History Interval history: Patient seen and examined, still with shortness of breath, sitting up placed on NRBM Hospitalist Physical - Physical exam Narrative exam: General appearance: Present: no acute distress, well-nourished. - EENT Eyes: Present: PERRL, EOM intact ENT: hearing intact, clear oral mucosa - Neck Neck: Present: supple, normal ROM - Respiratory Respiratory effort: normal Respiratory: bilateral: diminished (On high flow nasal cannula) and NRBM - Cardiovascular Rhythm: regular Heart Sounds: Present: S1 & S2 - Extremities Extremities: no ischemia, pulses intact, pulses symmetrical, No edema, normal temperature, normal color, Full ROM Peripheral Pulses: within normal limits - Abdominal General gastrointestinal: soft, non-tender, non-distended, normal bowel sounds - Integumentary Integumentary: Present: clear, warm, dry - Psychiatric Psychiatric: appropriate mood/affect, memory intact, cooperative - Neurologic Neurologic: CNII-XII intact, moves all extremities - Constitutional Vitals: Temp Pulse Resp BP Pulse Ox 98.0 F 112 H 36 H 136/73 90 08/21/21 12:00 08/21/21 11:01 08/21/21 11:01 08/21/21 11:01 08/21/21 11:01 General appearance: Present: no acute distress, well-nourished, other (Looks tired) Results - Labs CBC & Chem 7: 07/23/21 04:35 08/08/21 04:51 Labs: Laboratory Last Values WBC 10.8 K/mm3 (4.5-11.0) 07/23/21 04:35 RBC 3.84 M/mm3 (3.65-5.03) 07/23/21 04:35 Hgb 12.1 gm/dl (10.1-14.3) 07/23/21 04:35 Hct 37.6 % (30.3-42.9) 07/23/21 04:35 MCV 98 fl (79-97) H 07/23/21 04:35 MCH 32 pg (28-32) 07/23/21 04:35 MCHC 32 % (30-34) 07/23/21 04:35 RDW 16.2 % (13.2-15.2) H 07/23/21 04:35 Plt Count 367 K/mm3 (140-440) 07/23/21 04:35 Lymph % (Auto) 7.9 % (13.4-35.0) L 07/23/21 04:35 [place] % (Auto) 5.6 % (0.0-7.3) 07/23/21 04:35 Eos % (Auto) 0.8 % (0.0-4.3) 07/23/21 04:35 Baso % (Auto) 0.4 % (0.0-1.8) 07/23/21 04:35 Lymph # (Auto) 0.9 K/mm3 (1.2-5.4) L 07/23/21 04:35 [place] # (Auto) 0.6 K/mm3 (0.0-0.8) 07/23/21 04:35 Eos # (Auto) 0.1 K/mm3 (0.0-0.4) 07/23/21 04:35 Baso # (Auto) 0.0 K/mm3 (0.0-0.1) 07/23/21 04:35 Add Manual Diff Complete 07/09/21 04:45 Total Counted 100 07/09/21 04:45 Seg Neutrophils % 85.3 % (40.0-70.0) H 07/23/21 04:35 Seg Neuts % (Manual) 82.0 % (40.0-70.0) H 07/09/21 04:45 Band Neutrophils % 1.0 % 05/12/21 04:05 Lymphocytes % (Manual) 13.0 % (13.4-35.0) L 07/09/21 04:45 Monocytes % (Manual) 3.0 % (0.0-7.3) 07/09/21 04:45 Eosinophils % (Manual) 2.0 % (0.0-4.3) 07/09/21 04:45 Nucleated RBC % Not Reportable 07/09/21 04:45 Seg Neutrophils # 9.2 K/mm3 (1.8-7.7) H 07/23/21 04:35 Seg Neutrophils # Man 7.8 K/mm3 (1.8-7.7) H 07/09/21 04:45 Band Neutrophils # 0.0 K/mm3 07/09/21 04:45 Lymphocytes # (Manual) 1.2 K/mm3 (1.2-5.4) 07/09/21 04:45 Abs React Lymphs (Man) 0.0 K/mm3 07/09/21 04:45 Monocytes # (Manual) 0.3 K/mm3 (0.0-0.8) 07/09/21 04:45 Eosinophils # (Manual) 0.2 K/mm3 (0.0-0.4) 07/09/21 04:45 Basophils # (Manual) 0.0 K/mm3 (0.0-0.1) 07/09/21 04:45 Metamyelocytes # 0.0 K/mm3 07/09/21 04:45 Myelocytes # 0.0 K/mm3 07/09/21 04:45 Promyelocytes # 0.0 K/mm3 07/09/21 04:45 Blast Cells # 0.0 K/mm3 07/09/21 04:45 WBC Morphology Not Reportable 07/09/21 04:45 Hypersegmented Neuts Not Reportable 07/09/21 04:45 Hyposegmented Neuts Not Reportable 07/09/21 04:45 Hypogranular Neuts Not Reportable 07/09/21 04:45 Smudge Cells Not Reportable 07/09/21 04:45 Toxic Granulation Not Reportable 07/09/21 04:45 Toxic Vacuolation Not Reportable 07/09/21 04:45 Dohle Bodies Not Reportable 07/09/21 04:45 Pelger-Huet Anomaly Not Reportable 07/09/21 04:45 Janelle Rods Not Reportable 07/09/21 04:45 Platelet Estimate Consistent w auto 07/09/21 04:45 Clumped Platelets Not Reportable 07/09/21 04:45 Plt Clumps, EDTA Not Reportable 07/09/21 04:45 Large Platelets Not Reportable 07/09/21 04:45 Giant Platelets Rare 07/09/21 04:45 Platelet Satelliting Not Reportable 07/09/21 04:45 Plt Morphology Comment Not Reportable 07/09/21 04:45 RBC Morphology Not Reportable 07/09/21 04:45 Dimorphic RBCs Not Reportable 07/09/21 04:45 Polychromasia Not Reportable 07/09/21 04:45 Hypochromasia Few 07/09/21 04:45 Poikilocytosis Not Reportable 07/09/21 04:45 Anisocytosis Not Reportable 07/09/21 04:45 Microcytosis Not Reportable 07/09/21 04:45 Macrocytosis Not Reportable 07/09/21 04:45 Spherocytes Not Reportable 07/09/21 04:45 Pappenheimer Bodies Not Reportable 07/09/21 04:45 Sickle Cells Not Reportable 07/09/21 04:45 Target Cells Not Reportable 07/09/21 04:45 Tear Drop Cells Not Reportable 07/09/21 04:45 Ovalocytes Not Reportable 07/09/21 04:45 Stomatocytes 1+ 07/09/21 04:45 Helmet Cells Not Reportable 07/09/21 04:45 [place] Bodies Not Reportable 07/09/21 04:45 [place] Rings Not Reportable 07/09/21 04:45 Corder Cells Not Reportable 07/09/21 04:45 Bite Cells Not Reportable 07/09/21 04:45 Crenated Cell Not Reportable 07/09/21 04:45 Elliptocytes Not Reportable 07/09/21 04:45 Acanthocytes (Spur) Not Reportable 07/09/21 04:45 Rouleaux Not Reportable 07/09/21 04:45 Hemoglobin C Crystals Not Reportable 07/09/21 04:45 Schistocytes Not Reportable 07/09/21 04:45 Malaria parasites Not Reportable 07/09/21 04:45 Justin Bodies Not Reportable 07/09/21 04:45 Hem Pathologist Commnt No 07/09/21 04:45 D-Dimer 638.35 ng/mlDDU (0-234) H 07/09/21 04:45 ABG pH 7.417 (7.320-7.450) 07/23/21 18:11 POC ABG pCO2 78.3 mmHg (32.0-48.0) H 07/23/21 18:11 ABG pCO2 85.7 mm Hg 07/22/21 12:05 POC ABG pO2 80.7 mmHg (83-108) L 07/23/21 18:11 ABG pO2 66.1 mm Hg (80.0-90.0) L 07/22/21 12:05 POC ABG HCO3 49.3 07/23/21 18:11 ABG HCO3 45.0 mmol/L (20.0-26.0) H 07/22/21 12:05 ABG O2 Saturation 96.7 (0-100) 07/23/21 18:11 ABG O2 Content 16.8 (0.0-44) 07/22/21 12:05 POC ABG Base Excess 20.5 07/23/21 18:11 ABG Base Excess 15.2 mmol/L (-2.0-3.0) H 07/22/21 12:05 ABG Hemoglobin 12.6 (12.0-17.5) 07/23/21 18:11 ABG Oxyhemoglobin 95.7 (94-98) 07/23/21 18:11 ABG Carboxyhemoglobin 1.9 % (0.0-5.0) 07/22/21 12:05 ABG Methemoglobin 0.3 (0.0-1.5) 07/23/21 18:11 ABG Sodium 134.9 mmol/L (136.0-145.0) L 07/23/21 18:11 ABG Potassium 3.9 mmol/L (3.40-4.50) 07/23/21 18:11 ABG Chloride 89.0 mmol/L (98-107) L 07/23/21 18:11 ABG Glucose 200 mg/dL (65-95) H 07/23/21 18:11 Oxyhemoglobin 91.9 % (95.0-99.0) L 07/22/21 12:05 Carboxyhemoglobin 0.7 (0.5-1.5) 07/23/21 18:11 FiO2 100 % 07/22/21 12:05 FiO2 % 100.0 07/23/21 18:11 Sodium 140 mmol/L (137-145) 08/08/21 04:51 Potassium 4.1 mmol/L (3.6-5.0) 08/08/21 04:51 Chloride 92.9 mmol/L (98-107) L 08/08/21 04:51 Carbon Dioxide 39 mmol/L (22-30) H 08/08/21 04:51 Anion Gap 12 mmol/L 08/08/21 04:51 BUN 9 mg/dL (7-17) 08/08/21 04:51 Creatinine < 0.2 mg/dL (0.6-1.2) L 08/08/21 04:51 Estimated GFR > 60 ml/min 08/08/21 04:51 BUN/Creatinine Ratio 45 % 08/08/21 04:51 Glucose 105 mg/dL (65-100) H 08/08/21 04:51 POC Glucose 241 mg/dL (70-105) H 08/21/21 11:58 Hemoglobin A1c 8.5 % (4-6) H 04/18/21 07:36 Calcium 9.4 mg/dL (8.4-10.2) 08/08/21 04:51 Phosphorus 3.70 mg/dL (2.5-4.5) 07/23/21 04:35 Magnesium 2.10 mg/dL (1.7-2.3) 07/23/21 04:35 Ferritin 155.9 ng/mL (10.0-200.0) 07/09/21 04:45 Total Bilirubin < 0.20 mg/dL (0.1-1.2) 07/26/21 09:56 AST 23 units/L (5-40) 07/26/21 09:56 ALT 25 units/L (7-56) 07/26/21 09:56 Alkaline Phosphatase 69 units/L (35-129) 07/26/21 09:56 Lactate Dehydrogenase 475 units/L (91-180) H 06/05/21 05:26 C-Reactive Protein 4.30 mg/dL (0.00-1.30) H 07/09/21 04:45 NT-Pro-B Natriuret Pep 59.45 pg/mL (0-450) 07/07/21 13:40 Total Protein 8.1 g/dL (6.3-8.2) 07/26/21 09:56 Albumin 3.2 g/dL (3.9-5) L 07/26/21 09:56 Albumin/Globulin Ratio 0.7 % 07/26/21 09:56 Triglycerides < 9 mg/dL (2-149) 05/03/21 04:30 Procalcitonin < 0.05 ng/mL (<0.15) 05/23/21 09:50 Arterial Blood Glucose 200 mg/dL (65-95) H 07/23/21 18:11 Arterial Blood Ionized Calcium 4.6 mg/dL (4.6-5.3) 07/23/21 18:11 Coronavirus (PCR) Negative (Negative) 07/25/21 Unknown Amos/IV: Voiding Method External Female Catheter Active Medications - Current Medications Current Medications: Generic Name Dose Route Start Last Admin Trade Name Freq PRN Reason Stop Dose Admin Acetaminophen 650 mg 07/02/21 17:48 08/21/21 09:16 Acetaminophen 325 Mg Tab PO 650 mg Q4H PRN Administration Pain, Mild (1-3) Albuterol 2.5 mg 04/16/21 13:39 04/21/21 20:39 Albuterol 2.5 Mg/3 Ml Nebu IH 2.5 mg Q4HRT PRN Administration Shortness Of Breath Alprazolam 1 mg 08/12/21 11:00 08/21/21 09:16 Alprazolam 1 Mg Tab PO 1 mg BID TUTU Administration Calcium Carbonate/Glycine 500 mg 07/24/21 10:43 08/14/21 22:24 Calcium Carbonate 500 Mg Tab Chew PO 500 mg BID PRN Administration reflux Cholecalciferol 1,000 unit 04/17/21 10:00 08/21/21 09:16 Cholecalciferol (Vit D3) 1000 Unit (25 Mcg) Tab PO 1,000 unit QDAY TUTU Administration Enoxaparin Sodium 40 mg 05/19/21 22:00 08/20/21 21:21 Enoxaparin 40 Mg/0.4 Ml Inj SUB-Q 40 mg QDAY@2200 TUTU Administration Protocol Insulin Glargine 10 units 08/17/21 13:33 08/21/21 09:16 Insulin Glargine 100 Units/Ml SUB-Q 10 units DAILY TUTU Administration Insulin Human Lispro 0 unit 05/18/21 12:00 08/21/21 09:17 Insulin Lispro 100 Unit/Ml SUB-Q 3 unit ACHS TUTU Administration Protocol Methylprednisolone Sodium Succinate 125 mg 08/14/21 15:00 08/21/21 06:28 Methylprednisolone Sod Succinate 125 Mg/2 Ml Inj IV 125 mg Q8HR TUTU Administration Ondansetron HCl 4 mg 04/16/21 14:00 05/30/21 10:07 Ondansetron 4 Mg/2 Ml Inj IV 4 mg Q8H PRN Administration Nausea And Vomiting Polyethylene Glycol 17 gm 07/16/21 20:00 08/11/21 11:18 Polyethylene Glycol 3350 17 Gm Powder PO 17 gm QDAY PRN Administration Constipation Sodium Chloride 10 ml 04/16/21 13:39 08/21/21 09:17 Sodium Chloride 0.9% 10 Ml Flush Syringe IV 10 ml PRN PRN Administration LINE FLUSH Nutrition/Malnutrition Assess - Dietary Evaluation Nutrition/Malnutrition Findings: Nutrition Notes Start: 04/23/21 07:41 Freq: Status: Active Protocol: Document 08/09/21 17:26 SAQIB (Rec: 08/09/21 17:30 SAQIB [id number]) Nutrition Notes Initial or Follow up Brief Note Subjective/Other Information RD brief note to set next F/U on 09/12 Nutrition Intervention Follow-Up By: 09/12/21 Additional Comments Continue monitoring food tolerance, %PO intake of meals , Hydration, and BM.
--- NOTE | 2021-08-21 13:43 | Progress Note ---
Assessment and Plan 50 y/o female with acute respiratory failure secondary to COVID19 pneumonia. 08/21/21: Will repeat CXR today. Consider decreasing steroid tomorrow. 08/18/21: Will continue steroids at current dosing as I believe they are helping. IMS managing blood sugars. I notified RT but I dropped FiO2 down to 55% while patient was sleeping. Will continue to follow. CM still working with hospice to get home but has to meet certain criteria on HFNC and she is not there yet. 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 Will continue solumedrol 126q8 and wean slowly over time. Discussed with pharmacy. CM working on possible placement with hospice company once she reaches a certain goal of HFNC. Will continue to monitor. 08/14/21: wean HFNC as tolerated. 08/12/21: Continue to attempt to wean HFNC. No other therapies available for this at present. Will check CXR today. 08/07/21: Constant struggle with Ms. Ren, on and off bipap. Good and bad days. She has had all therapy. Anxiety does play a huge roll but she truly desats. Continue NIV at night and PRN during the day. Wean HFNC as tolerated for sats >88%. May consider another trial of steroids when I come back. My partner is rounding the next 4 days. 08/05/21: I dropped FiO2 to 65%. Continue to wean for sats >88%. 08/03/21: COntinue supportive measures. Thank you for documenting refusal of NIV at night. Will attempt to speak with patient about anxiety and why she doesn't want to wear the NIV via the language line. 08/02/21: Continue supportive care. pLaced new order for NIV at night. Please document if patient refuses 07/31/21: COntinue to wean FiO2 as tolerated. NIV at night. 07/30/21: Bipap QHS. Please document if patient is refusing this at night. Per nurse she has refused but RT documentation reflects that it was PRN and not needed. Prognosis is still guarded. 07/29/21: Continue to attempt to wean FiO2. Given fluctuations in oxygen requirements, ok with keeping in IMCU. consider using bipap therapy at night if patient will allow. Prognosis still remains guarded. Patient has been here 104 days. 07/21/21: Wean FiO2 as tolerated. Patient has never proned the entire 96 days she has been here. Will continue bipap at night. Hold on lasix again today. Prognosis remains guarded. Has finished steroids and all other experimental COVID drugs with minimal to no improvement. 07/20/21: Give patient a break off of bipap and attempt high flow nasal cannula today. Will feed. Suggest keeping bipap therapy at night. Monitor fluid balance and BP. May need more lasix. 07/19/21: This was not related to stopping steroids as hemodynamically she is stable. Her sats is very good on 90%, I dropped to 85 and will continue to wean. She speaks no pakistani and is very anxious. This adds to her work of breathing. COntinue to wean FiO2 as tolerated. Will give periodic breaks on bipap therapy. Guarded prognosis. 07/17/21: will stop steroids today. Hold on lasix given marginal blood pressure. Guarded prognosis. 07/15/21: Lasix today. Positive fluid balance all weekend based on I/O. Prone. Wean for sats >88% 07/12/21: Gave lasix 40mg IV again this am. Per charting yesterday was the first net negative day. Suggest PRN diuresis over the weekend as well. My partner is rounding but will likely see as needed. Continue to wean for sats >88% 07/11/21: Lasix 40mg IV this am. Attempt to prone if able. Attempt to achieve daily net negative state. Wean for sats >88%. Guarded prognosis. Will change prednisone to 5mg daily starting tomorrow. 07/09/21: Echo shows diastolic dysfunction. Will given an additional 40 of IV lasix today. Monitor daily and wean aggressively for sats >88% 07/08/21: Worsening CXR, Gave lasix yesterday and will give again today. Suggest checking echo, ekg. Prognosis is poor now with this change. 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 07/05/21: Will monitor over the weekend. Worst case scenario, may need to go back up to Prednisone 20 at least. Prone if able. Unsure why all of sudden oxygen requirement increasing. Will repeat CXR. 07/03/21: Down to 10 of prednisone. Will keep through the weekend and then drop to 5 on Thursday. PT/OT assessment if not done. Suggest maybe weaning flow now given FiO2 down to 50%. Prognosis is still guarded. 07/01/21: Will drop steroids to 10mg daily starting tomorrow. Wean for sats >88%. Prone. PT/OT should be seeing now that oxygen requirement is down more. 06/28/21: Continue to wean as tolerated. Will drop steroids down even further next week. Will see PRN over the weekend. 06/26/21: Will drop steroids down to 20 starting tomorrow. Prone. Continue to wean as tolerated. 06/24/21: Continue Pred, will drop to 20 daily tomorrow. Prone if able. Hopeful they can wean FiO2 more. May need to consider increasing flow for a while. 06/21/21: Continue pred at 40, will decrease likely Thursday/Thursday to 20 daily. Prone if able. Continue to wean as tolerated. Prognosis still remains guarded. 06/20/21: Will drop steroids down to 40 today. Proning. Continue to wean FiO2. 06/18/21: Wean Fio2 for sats >88%. Please encourage proning. Drop steroids down to 40 on . 06/14/21: Continue oral steroid therapy. Will do further weaning next week. Wean for sats >88% and prone as tolerated. Will see as needed over the weekend. 06/13/21: Will change to prednisone 60 daily starting tomorrow. Prone if able and wean for sats >88% 06/11/21: no new recs, will change to oral steroids tomorrow, continue to prone if able and wean for sats >88% 06/10/21: Will change to oral steroids on Thursday to begin prolonged taper 06/06/21: Continue to wean as tolerated, will drop steroids on tomorrow. 06/04/21: Clinically no change. Will drop steroids down the end of this week. 05/31/21: Clinically no change. Not eligible for LTACH. Encourage Proning. Will drop steroids down to 40 q8 05/29/21: No acute changes clinically. Still on HFNC but not really able to wean. Continue to encourage proning. Will drop steroids further on Thursday. 05/27/21: No improvement over the weekend but also no worsening. No other strategies to offer. Please continue to encourage patient to prone. I dropped steroids on yesterday. Will wean more later in the week. 05/24/21: No new recs again for today. Will see as needed over the weekend but follow chart peripherally for changes. 05/22/21: No new recs for today. Prognosis remains guarded. 05/21/21: Wean as tolerated. Prone if able. Guarded prognosis 05/20/21: COntinue current level of care. 05/17/21: Prone if possible. Wean FiO2 for sats >88%. Continue scheduled ativan. Prognosis is very very guarded. Unfunded so not a candidate for LTACH 05/16/21: Prone if willing. Wean FIO2 if patient will allow. Anxiety control. Prognosis still remains very guarded. 05/15/21: Not sure if MAR is accurate but may have only gotten one dose of scheduled anixolytic therapy. Continue proning as tolerated, and wean FiO2 and flow for sats >88%. Prognosi remains very very guarded to poor. 05/14/21: Will discontinue the buspar and make the ativan scheduled but will do q6 as oppose to q4 and attempt to leave parameters for nursing when not to give. If anxiety could be controlled, feel that patient could be weaned further. She has no funding so she is not a candidate for LTACH. Prone if possible. Guarded prognosis. This is her 28 day. 05/13/21: Ordered buspar 10 BID to start with to help with anxiety. Please continue to wean FiO2 as tolerated. Will remind nurse that there is PRN ativan available. Continue higher doses of steroids. Prone if able. 05/12/21: Patient may need something longer acting for anxiety. Per chart has not gotten any ativan in days. Would be ok with either buspar or low dose klonopin bid. COntinue higher doses of steroids as patient seems to be responding. Prone if possible. 05/11/21: Continue high doses of steroids and continue to wean for sats >88%. Please encourage proning. 05/10/21: Will continue this dose of steroid at least through the weekend and assess for improvement. will speak with RT about aggressive weaning. Full dose anticoagulation continues. Very very guarded to poor prognosis. 05/09/21: Going to consider increasing steroids to 125q8, maybe as early as tomorrow. continue full dose anticoagulation. 05/08/21: Continue anticoagulation and steroids. Prone if possible. Anxiety control. No objection to CTA if this can happen. Very very guarded prognosis. 05/07/21: Spoke with IMS, not opposed to full dose anticoagulation. If patient goes back on NRB HFNC combo may need to consider restarting PPN again. Encourage proning. Guarded prognosis. 05/06/21: Continue to wean FiO2 and flow for sats >88%. Tolerating diet now so will stop PPN. Continue anxiety control. Continue IV steroids. Would not object to transfer to COVID floor if bed available. Not sure why she was titrated back up to 100% from 85 as all sats documented in the RT's notes were acceptable. Same for under vital signs as well. 05/03/21: Set back last night from yesterday. Continue bipap therapy for now and attempt HFNC maybe later this afternoon. Continue to use PRN ativan but may need to schedule as she likely took off mask from anxiety. Continue IV steroids. Hold on transfer to COVID Floor. 05/02/21: Continue to wean FiO2 as tolerated for sats >88%. Will continue bipap at night. Patient has no funding so not a candidate for LTACH. Given that she has been stable and not requiring the combo of HFNC and NRB, will consider moving to COVID floor. 05/01/21: Continue to wean FiO2 for sats >88%. A sat of 90 is more than acceptable and oxygen should not be increased for this unless patient desats and remains at a sat lower than 88. Bipap at night to give some form of relief and HFNC during the day. Currently on just this alone which is improvement. Ok with daily diuresis but must monitor renal function and BP closely. She was over diuresed last week and we ended up giving fluid back. Prognosis remains guarded. 04/30/21: Will start CLinimix today for nutritional support, without electrolytes. Check labs in am. Prone if able. Continue precedex for anxiety. Very very guarded prognosis. Attempting our best to not intubate. 04/29/21: Continue precedex. Continue IV solumedrol. Prone if able. Guarded prognosis. 04/28/21: Continue Precedex. Picc team attempting to place line now. Stable on Bipap. Ordered steroids IV solumedrol to start today. Prognosis remains guarded, still at very high risk for intubation. 04/27/21: Hypotension improving/improved. Hold on any further lasix dosing. Continue precedex to help with anxeity. later today please attempt HFNC with NRB if needed. Attempt to feed if possible. Steroids end today, please order solumedrol 40q8 to start tomorrow (04/28/21). guarded prognosis. 04/26/21: Hypotension today, most likely from precedex use and diuresis that I did the last several days. Will bolus again today. Consider midodrine if BP does not respond. 04/25/21: Lasix again today. Keep PRN ativan for now. Hold on precedex for now. Guarded prognosis. Labs ordered for tomorrow. 04/24/21: Lasix today. Will also start patient on low dose PRN ativan. If this does not help will then try precedex. Guarded prognosis. 04/23/21: Prone as tolerated. No lasix today. Continue decadron. Guarded prognosis. High risk for intubation and high mortality with intubation. 04/19/21: Prone as tolerated during the day and sleep prone at night. Continue IV remdesivir and steroids. Did get actemra. Guarded prognosis. 1. Daily net negative state 2. Prone if possible 3. IV remdesivir. 4. Should be a candidate for Actemra 5. IV steroids 6. Guarded Prognosis Subjective Date of service: 08/21/21 Principal diagnosis: Covid-19 Interval history: No acute events. Now on HFNC and NRB. About to eat lunch. Objective Vital Signs - 12hr 08/21/21 08/21/21 08/21/21 02:00 03:00 04:00 Temperature 97.2 F L Pulse Rate 100 H 111 H 100 H Pulse Rate [ From Monitor] Respiratory 34 H 37 H 31 H Rate Blood Pressure 109/64 128/74 130/67 O2 Sat by Pulse 96 89 94 Oximetry 08/21/21 08/21/21 08/21/21 05:00 06:00 07:00 Temperature Pulse Rate 95 H 97 H 95 H Pulse Rate [ From Monitor] Respiratory 28 H 26 H 31 H Rate Blood Pressure 128/71 120/75 126/66 O2 Sat by Pulse 95 96 Oximetry 08/21/21 08/21/21 08/21/21 07:25 08:00 09:00 Temperature Pulse Rate 94 H 108 H Pulse Rate [ 94 H From Monitor] Respiratory 28 H 32 H Rate Blood Pressure 125/64 141/66 O2 Sat by Pulse 96 97 100 Oximetry 08/21/21 08/21/21 08/21/21 10:00 11:01 12:00 Temperature 98.0 F Pulse Rate 108 H 112 H Pulse Rate [ From Monitor] Respiratory 35 H 36 H Rate Blood Pressure 129/61 136/73 O2 Sat by Pulse 94 90 Oximetry Constitutional: alert, other (on hiflo o2) Eyes: non-icteric ENT: oropharynx moist Neck: supple Effort: normal Ascultation: Bilateral: diminished breath sounds Cardiovascular: regular rate and rhythm Gastrointestinal: normoactive bowel sounds, soft, non-tender, non-distended Integumentary: normal Extremities: no cyanosis, no edema, pink and warm Neurologic: non-focal exam, pupils equal and round Psychiatric: mood appropriate, affect normal CBC and BMP: 07/23/21 04:35 08/08/21 04:51 ABG, PT/INR, D-dimer: ABG ABG pH 7.417 (7.320-7.450) 07/23/21 18:11 POC ABG pCO2 78.3 mmHg (32.0-48.0) H 07/23/21 18:11 ABG pCO2 85.7 mm Hg 07/22/21 12:05 POC ABG pO2 80.7 mmHg (83-108) L 07/23/21 18:11 ABG pO2 66.1 mm Hg (80.0-90.0) L 07/22/21 12:05 POC ABG HCO3 49.3 07/23/21 18:11 ABG O2 Saturation 96.7 (0-100) 07/23/21 18:11 PT/INR, D-dimer D-Dimer 638.35 ng/mlDDU (0-234) H 07/09/21 04:45 Abnormal lab findings: Abnormal Labs 04/16/21 04/16/21 04/16/21 11:42 11:42 11:42 WBC MCV MCH MCHC RDW 16.1 H Lymph % (Auto) 7.8 L S[place] % (Auto) Eos % (Auto) Lymph # (Auto) 0.8 L [place] # (Auto) Eos # (Auto) Baso # (Auto) Seg Neutrophils % 87.7 H Seg Neuts % (Manual) Lymphocytes % (Manual) Seg Neutrophils # 8.5 H Seg Neutrophils # Man Lymphocytes # (Manual) D-Dimer 338.70 H ABG pH POC ABG pCO2 POC ABG pO2 ABG pO2 ABG HCO3 ABG O2 Saturation ABG Base Excess ABG Oxyhemoglobin ABG Sodium ABG Chloride ABG Glucose Oxyhemoglobin Carboxyhemoglobin Sodium Potassium Chloride Carbon Dioxide BUN Creatinine Glucose 194 H POC Glucose Hemoglobin A1c Magnesium Ferritin AST ALT Alkaline Phosphatase Lactate Dehydrogenase C-Reactive Protein Total Protein 8.4 H Albumin 3.8 L Arterial Blood Glucose Coronavirus (PCR) 04/16/21 04/16/21 04/17/21 11:42 11:42 03:50 WBC MCV MCH MCHC RDW 16.0 H Lymph % (Auto) 7.7 L [place] % (Auto) Eos % (Auto) Lymph # (Auto) 0.6 L [place] # (Auto) Eos # (Auto) Baso # (Auto) Seg Neutrophils % 89.8 H Seg Neuts % (Manual) Lymphocytes % (Manual) Seg Neutrophils # Seg Neutrophils # Man Lymphocytes # (Manual) D-Dimer ABG pH POC ABG pCO2 POC ABG pO2 ABG pO2 ABG HCO3 ABG O2 Saturation ABG Base Excess ABG Oxyhemoglobin ABG Sodium ABG Chloride ABG Glucose Oxyhemoglobin Carboxyhemoglobin Sodium Potassium Chloride Carbon Dioxide BUN Creatinine Glucose 195 H POC Glucose Hemoglobin A1c Magnesium Ferritin 254.3 H AST ALT Alkaline Phosphatase Lactate Dehydrogenase 359 H C-Reactive Protein 15.20 H Total Protein Albumin Arterial Blood Glucose Coronavirus (PCR) 04/17/21 04/17/21 04/17/21 03:50 08:26 08:26 WBC MCV MCH MCHC RDW Lymph % (Auto) S[place]ent % (Auto) Eos % (Auto) Lymph # (Auto) S[place]ent # (Auto) Eos # (Auto) Baso # (Auto) Seg Neutrophils % Seg Neuts % (Manual) Lymphocytes % (Manual) Seg Neutrophils # Seg Neutrophils # Man Lymphocytes # (Manual) D-Dimer 262.48 H ABG pH POC ABG pCO2 POC ABG pO2 ABG pO2 ABG HCO3 ABG O2 Saturation ABG Base Excess ABG Oxyhemoglobin ABG Sodium ABG Chloride ABG Glucose Oxyhemoglobin Carboxyhemoglobin Sodium Potassium Chloride Carbon Dioxide BUN 20 H Creatinine 0.5 L Glucose 249 H 225 H POC Glucose Hemoglobin A1c Magnesium Ferritin AST ALT Alkaline Phosphatase Lactate Dehydrogenase 338 H C-Reactive Protein 17.20 H Total Protein Albumin 3.2 L Arterial Blood Glucose Coronavirus (PCR) 04/17/21 04/17/21 04/17/21 08:26 15:04 Unknown WBC MCV MCH MCHC RDW Lymph % (Auto) S[place]ent % (Auto) Eos % (Auto) Lymph # (Auto) S[place]ent # (Auto) Eos # (Auto) Baso # (Auto) Seg Neutrophils % Seg Neuts % (Manual) Lymphocytes % (Manual) Seg Neutrophils # Seg Neutrophils # Man Lymphocytes # (Manual) D-Dimer ABG pH POC ABG pCO2 POC ABG pO2 ABG pO2 ABG HCO3 ABG O2 Saturation ABG Base Excess ABG Oxyhemoglobin ABG Sodium ABG Chloride ABG Glucose Oxyhemoglobin Carboxyhemoglobin Sodium Potassium Chloride Carbon Dioxide BUN 20 H Creatinine 0.5 L Glucose 246 H POC Glucose Hemoglobin A1c Magnesium Ferritin 392.0 H AST ALT Alkaline Phosphatase Lactate Dehydrogenase C-Reactive Protein Total Protein 8.3 H Albumin 3.1 L Arterial Blood Glucose Coronavirus (PCR) Positive A 04/18/21 04/18/21 04/18/21 05:06 05:06 07:36 WBC 11.6 H MCV MCH MCHC RDW 16.1 H Lymph % (Auto) S[place]ent % (Auto) Eos % (Auto) Lymph # (Auto) S[place] # (Auto) Eos # (Auto) Baso # (Auto) Seg Neutrophils % Seg Neuts % (Manual) Lymphocytes % (Manual) Seg Neutrophils # Seg Neutrophils # Man Lymphocytes # (Manual) D-Dimer ABG pH POC ABG pCO2 POC ABG pO2 ABG pO2 ABG HCO3 ABG O2 Saturation ABG Base Excess ABG Oxyhemoglobin ABG Sodium ABG Chloride ABG Glucose Oxyhemoglobin Carboxyhemoglobin Sodium Potassium 5.2 H Chloride Carbon Dioxide BUN 22 H Creatinine 0.5 L Glucose 315 H POC Glucose Hemoglobin A1c 8.5 H Magnesium Ferritin AST ALT Alkaline Phosphatase Lactate Dehydrogenase C-Reactive Protein Total Protein Albumin 3.3 L Arterial Blood Glucose Coronavirus (PCR) 04/18/21 04/18/21 04/18/21 11:59 16:43 23:24 WBC MCV MCH MCHC RDW Lymph % (Auto) S[place]ent % (Auto) Eos % (Auto) Lymph # (Auto) S[place]ent # (Auto) Eos # (Auto) Baso # (Auto) Seg Neutrophils % Seg Neuts % (Manual) Lymphocytes % (Manual) Seg Neutrophils # Seg Neutrophils # Man Lymphocytes # (Manual) D-Dimer ABG pH POC ABG pCO2 POC ABG pO2 ABG pO2 ABG HCO3 ABG O2 Saturation ABG Base Excess ABG Oxyhemoglobin ABG Sodium ABG Chloride ABG Glucose Oxyhemoglobin Carboxyhemoglobin Sodium Potassium Chloride Carbon Dioxide BUN Creatinine Glucose POC Glucose 284 H 273 H 290 H Hemoglobin A1c Magnesium Ferritin AST ALT Alkaline Phosphatase Lactate Dehydrogenase C-Reactive Protein Total Protein Albumin Arterial Blood Glucose Coronavirus (PCR) 04/19/21 04/19/21 04/19/21 04:19 04:19 08:10 WBC MCV MCH MCHC RDW 15.7 H Lymph % (Auto) S[place] % (Auto) Eos % (Auto) Lymph # (Auto) S[place] # (Auto) Eos # (Auto) Baso # (Auto) Seg Neutrophils % Seg Neuts % (Manual) Lymphocytes % (Manual) Seg Neutrophils # Seg Neutrophils # Man Lymphocytes # (Manual) D-Dimer ABG pH POC ABG pCO2 POC ABG pO2 ABG pO2 ABG HCO3 ABG O2 Saturation ABG Base Excess ABG Oxyhemoglobin ABG Sodium ABG Chloride ABG Glucose Oxyhemoglobin Carboxyhemoglobin Sodium Potassium Chloride Carbon Dioxide BUN 27 H Creatinine 0.4 L Glucose 184 H POC Glucose 194 H Hemoglobin A1c Magnesium Ferritin AST ALT Alkaline Phosphatase Lactate Dehydrogenase C-Reactive Protein Total Protein Albumin 3.1 L Arterial Blood Glucose Coronavirus (PCR) 04/19/21 04/19/21 04/19/21 11:38 16:25 22:04 WBC MCV MCH MCHC RDW Lymph % (Auto) S[place]ent % (Auto) Eos % (Auto) Lymph # (Auto) S[place]ent # (Auto) Eos # (Auto) Baso # (Auto) Seg Neutrophils % Seg Neuts % (Manual) Lymphocytes % (Manual) Seg Neutrophils # Seg Neutrophils # Man Lymphocytes # (Manual) D-Dimer ABG pH POC ABG pCO2 POC ABG pO2 ABG pO2 ABG HCO3 ABG O2 Saturation ABG Base Excess ABG Oxyhemoglobin ABG Sodium ABG Chloride ABG Glucose Oxyhemoglobin Carboxyhemoglobin Sodium Potassium Chloride Carbon Dioxide BUN Creatinine Glucose POC Glucose 224 H 297 H 251 H Hemoglobin A1c Magnesium Ferritin AST ALT Alkaline Phosphatase Lactate Dehydrogenase C-Reactive Protein Total Protein Albumin Arterial Blood Glucose Coronavirus (PCR) 04/20/21 04/20/21 04/20/21 05:28 08:43 16:21 WBC MCV MCH MCHC RDW Lymph % (Auto) S[place] % (Auto) Eos % (Auto) Lymph # (Auto) [place] # (Auto) Eos # (Auto) Baso # (Auto) Seg Neutrophils % Seg Neuts % (Manual) Lymphocytes % (Manual) Seg Neutrophils # Seg Neutrophils # Man Lymphocytes # (Manual) D-Dimer ABG pH POC ABG pCO2 POC ABG pO2 ABG pO2 ABG HCO3 ABG O2 Saturation ABG Base Excess ABG Oxyhemoglobin ABG Sodium ABG Chloride ABG Glucose Oxyhemoglobin Carboxyhemoglobin Sodium Potassium Chloride Carbon Dioxide BUN 27 H Creatinine Glucose 192 H POC Glucose 173 H 253 H Hemoglobin A1c Magnesium Ferritin AST ALT Alkaline Phosphatase Lactate Dehydrogenase C-Reactive Protein Total Protein Albumin 3.0 L Arterial Blood Glucose Coronavirus (PCR) 04/21/21 04/21/21 04/21/21 07:58 12:05 16:08 WBC MCV MCH MCHC RDW Lymph % (Auto) [place] % (Auto) Eos % (Auto) Lymph # (Auto) [place] # (Auto) Eos # (Auto) Baso # (Auto) Seg Neutrophils % Seg Neuts % (Manual) Lymphocytes % (Manual) Seg Neutrophils # Seg Neutrophils # Man Lymphocytes # (Manual) D-Dimer ABG pH POC ABG pCO2 POC ABG pO2 ABG pO2 ABG HCO3 ABG O2 Saturation ABG Base Excess ABG Oxyhemoglobin ABG Sodium ABG Chloride ABG Glucose Oxyhemoglobin Carboxyhemoglobin Sodium Potassium Chloride Carbon Dioxide BUN Creatinine Glucose POC Glucose 140 H 252 H 214 H Hemoglobin A1c Magnesium Ferritin AST ALT Alkaline Phosphatase Lactate Dehydrogenase C-Reactive Protein Total Protein Albumin Arterial Blood Glucose Coronavirus (PCR) 04/21/21 04/22/21 04/22/21 21:42 08:37 12:01 WBC MCV MCH MCHC RDW Lymph % (Auto) S[place] % (Auto) Eos % (Auto) Lymph # (Auto) [place] # (Auto) Eos # (Auto) Baso # (Auto) Seg Neutrophils % Seg Neuts % (Manual) Lymphocytes % (Manual) Seg Neutrophils # Seg Neutrophils # Man Lymphocytes # (Manual) D-Dimer ABG pH 7.457 H POC ABG pCO2 POC ABG pO2 49.4 L ABG pO2 ABG HCO3 ABG O2 Saturation ABG Base Excess ABG Oxyhemoglobin 85.6 L ABG Sodium ABG Chloride ABG Glucose 121 H Oxyhemoglobin Carboxyhemoglobin 0.3 L Sodium Potassium Chloride Carbon Dioxide BUN Creatinine Glucose POC Glucose 162 H 227 H Hemoglobin A1c Magnesium Ferritin AST ALT Alkaline Phosphatase Lactate Dehydrogenase C-Reactive Protein Total Protein Albumin Arterial Blood Glucose 121 H Coronavirus (PCR) 04/22/21 04/22/21 04/23/21 16:26 22:23 04:52 WBC MCV MCH MCHC RDW 15.7 H Lymph % (Auto) [place] % (Auto) Eos % (Auto) Lymph # (Auto) [place] # (Auto) Eos # (Auto) Baso # (Auto) Seg Neutrophils % Seg Neuts % (Manual) Lymphocytes % (Manual) Seg Neutrophils # Seg Neutrophils # Man Lymphocytes # (Manual) D-Dimer ABG pH POC ABG pCO2 POC ABG pO2 ABG pO2 ABG HCO3 ABG O2 Saturation ABG Base Excess ABG Oxyhemoglobin ABG Sodium ABG Chloride ABG Glucose Oxyhemoglobin Carboxyhemoglobin Sodium Potassium Chloride Carbon Dioxide BUN Creatinine Glucose POC Glucose 200 H 136 H Hemoglobin A1c Magnesium Ferritin AST ALT Alkaline Phosphatase Lactate Dehydrogenase C-Reactive Protein Total Protein Albumin Arterial Blood Glucose Coronavirus (PCR) 04/23/21 04/23/21 04/23/21 04:52 12:06 17:41 WBC MCV MCH MCHC RDW Lymph % (Auto) S[place] % (Auto) Eos % (Auto) Lymph # (Auto) [place] # (Auto) Eos # (Auto) Baso # (Auto) Seg Neutrophils % Seg Neuts % (Manual) Lymphocytes % (Manual) Seg Neutrophils # Seg Neutrophils # Man Lymphocytes # (Manual) D-Dimer ABG pH POC ABG pCO2 POC ABG pO2 ABG pO2 ABG HCO3 ABG O2 Saturation ABG Base Excess ABG Oxyhemoglobin ABG Sodium ABG Chloride ABG Glucose Oxyhemoglobin Carboxyhemoglobin Sodium 136 L Potassium Chloride 97.7 L Carbon Dioxide BUN 23 H Creatinine Glucose 101 H POC Glucose 202 H 169 H Hemoglobin A1c Magnesium Ferritin AST 46 H ALT Alkaline Phosphatase Lactate Dehydrogenase C-Reactive Protein Total Protein Albumin 3.3 L Arterial Blood Glucose Coronavirus (PCR) 04/23/21 04/24/21 04/24/21 23:08 05:17 08:38 WBC MCV MCH MCHC RDW Lymph % (Auto) [place] % (Auto) Eos % (Auto) Lymph # (Auto) [place] # (Auto) Eos # (Auto) Baso # (Auto) Seg Neutrophils % Seg Neuts % (Manual) Lymphocytes % (Manual) Seg Neutrophils # Seg Neutrophils # Man Lymphocytes # (Manual) D-Dimer ABG pH POC ABG pCO2 POC ABG pO2 ABG pO2 ABG HCO3 ABG O2 Saturation ABG Base Excess ABG Oxyhemoglobin ABG Sodium ABG Chloride ABG Glucose Oxyhemoglobin Carboxyhemoglobin Sodium Potassium Chloride Carbon Dioxide BUN Creatinine Glucose POC Glucose 111 H 108 H 126 H Hemoglobin A1c Magnesium Ferritin AST ALT Alkaline Phosphatase Lactate Dehydrogenase C-Reactive Protein Total Protein Albumin Arterial Blood Glucose Coronavirus (PCR) 04/24/21 04/24/21 04/24/21 11:54 17:57 21:23 WBC MCV MCH MCHC RDW Lymph % (Auto) [place] % (Auto) Eos % (Auto) Lymph # (Auto) [place] # (Auto) Eos # (Auto) Baso # (Auto) Seg Neutrophils % Seg Neuts % (Manual) Lymphocytes % (Manual) Seg Neutrophils # Seg Neutrophils # Man Lymphocytes # (Manual) D-Dimer ABG pH POC ABG pCO2 POC ABG pO2 ABG pO2 ABG HCO3 ABG O2 Saturation ABG Base Excess ABG Oxyhemoglobin ABG Sodium ABG Chloride ABG Glucose Oxyhemoglobin Carboxyhemoglobin Sodium Potassium Chloride Carbon Dioxide BUN Creatinine Glucose POC Glucose 147 H 177 H 138 H Hemoglobin A1c Magnesium Ferritin AST ALT Alkaline Phosphatase Lactate Dehydrogenase C-Reactive Protein Total Protein Albumin Arterial Blood Glucose Coronavirus (PCR) 04/25/21 04/25/21 04/25/21 07:06 11:23 15:43 WBC MCV MCH MCHC RDW Lymph % (Auto) [place] % (Auto) Eos % (Auto) Lymph # (Auto) [place] # (Auto) Eos # (Auto) Baso # (Auto) Seg Neutrophils % Seg Neuts % (Manual) Lymphocytes % (Manual) Seg Neutrophils # Seg Neutrophils # Man Lymphocytes # (Manual) D-Dimer ABG pH POC ABG pCO2 POC ABG pO2 ABG pO2 ABG HCO3 ABG O2 Saturation ABG Base Excess ABG Oxyhemoglobin ABG Sodium ABG Chloride ABG Glucose Oxyhemoglobin Carboxyhemoglobin Sodium Potassium Chloride Carbon Dioxide BUN Creatinine Glucose POC Glucose 147 H 169 H 227 H Hemoglobin A1c Magnesium Ferritin AST ALT Alkaline Phosphatase Lactate Dehydrogenase C-Reactive Protein Total Protein Albumin Arterial Blood Glucose Coronavirus (PCR) 04/25/21 04/26/21 04/26/21 21:22 02:45 05:15 WBC MCV MCH MCHC RDW Lymph % (Auto) [place] % (Auto) Eos % (Auto) Lymph # (Auto) [place] # (Auto) Eos # (Auto) Baso # (Auto) Seg Neutrophils % Seg Neuts % (Manual) Lymphocytes % (Manual) Seg Neutrophils # Seg Neutrophils # Man Lymphocytes # (Manual) D-Dimer ABG pH POC ABG pCO2 POC ABG pO2 70.7 L ABG pO2 ABG HCO3 ABG O2 Saturation ABG Base Excess ABG Oxyhemoglobin 93.0 L ABG Sodium 132.7 L ABG Chloride ABG Glucose 115 H Oxyhemoglobin Carboxyhemoglobin Sodium Potassium Chloride 95.8 L Carbon Dioxide 32 H BUN 20 H Creatinine Glucose 102 H POC Glucose 196 H Hemoglobin A1c Magnesium Ferritin AST ALT Alkaline Phosphatase Lactate Dehydrogenase C-Reactive Protein Total Protein Albumin Arterial Blood Glucose 115 H Coronavirus (PCR) 04/26/21 04/26/21 04/26/21 11:49 16:09 21:07 WBC MCV MCH MCHC RDW Lymph % (Auto) [place] % (Auto) Eos % (Auto) Lymph # (Auto) [place] # (Auto) Eos # (Auto) Baso # (Auto) Seg Neutrophils % Seg Neuts % (Manual) Lymphocytes % (Manual) Seg Neutrophils # Seg Neutrophils # Man Lymphocytes # (Manual) D-Dimer ABG pH POC ABG pCO2 POC ABG pO2 ABG pO2 ABG HCO3 ABG O2 Saturation ABG Base Excess ABG Oxyhemoglobin ABG Sodium ABG Chloride ABG Glucose Oxyhemoglobin Carboxyhemoglobin Sodium Potassium Chloride Carbon Dioxide BUN Creatinine Glucose POC Glucose 114 H 188 H 136 H Hemoglobin A1c Magnesium Ferritin AST ALT Alkaline Phosphatase Lactate Dehydrogenase C-Reactive Protein Total Protein Albumin Arterial Blood Glucose Coronavirus (PCR) 04/27/21 04/27/21 04/28/21 17:34 22:12 08:26 WBC MCV MCH MCHC RDW Lymph % (Auto) [place] % (Auto) Eos % (Auto) Lymph # (Auto) [place] # (Auto) Eos # (Auto) Baso # (Auto) Seg Neutrophils % Seg Neuts % (Manual) Lymphocytes % (Manual) Seg Neutrophils # Seg Neutrophils # Man Lymphocytes # (Manual) D-Dimer ABG pH POC ABG pCO2 POC ABG pO2 ABG pO2 ABG HCO3 ABG O2 Saturation ABG Base Excess ABG Oxyhemoglobin ABG Sodium ABG Chloride ABG Glucose Oxyhemoglobin Carboxyhemoglobin Sodium Potassium Chloride Carbon Dioxide BUN Creatinine Glucose POC Glucose 128 H 159 H 69 L Hemoglobin A1c Magnesium Ferritin AST ALT Alkaline Phosphatase Lactate Dehydrogenase C-Reactive Protein Total Protein Albumin Arterial Blood Glucose Coronavirus (PCR) 04/28/21 04/28/21 04/29/21 12:22 21:11 06:05 WBC MCV MCH MCHC RDW Lymph % (Auto) [place] % (Auto) Eos % (Auto) Lymph # (Auto) [place] # (Auto) Eos # (Auto) Baso # (Auto) Seg Neutrophils % Seg Neuts % (Manual) Lymphocytes % (Manual) Seg Neutrophils # Seg Neutrophils # Man Lymphocytes # (Manual) D-Dimer ABG pH POC ABG pCO2 POC ABG pO2 ABG pO2 ABG HCO3 ABG O2 Saturation ABG Base Excess ABG Oxyhemoglobin ABG Sodium ABG Chloride ABG Glucose Oxyhemoglobin Carboxyhemoglobin Sodium 132 L Potassium Chloride 94.4 L Carbon Dioxide BUN Creatinine 0.2 L D Glucose 140 H POC Glucose 141 H 171 H Hemoglobin A1c Magnesium Ferritin AST ALT Alkaline Phosphatase Lactate Dehydrogenase C-Reactive Protein Total Protein Albumin Arterial Blood Glucose Coronavirus (PCR) 04/29/21 04/29/21 04/29/21 06:05 07:24 11:36 WBC MCV MCH MCHC 35 H RDW 15.9 H Lymph % (Auto) [place] % (Auto) Eos % (Auto) Lymph # (Auto) [place] # (Auto) Eos # (Auto) Baso # (Auto) Seg Neutrophils % Seg Neuts % (Manual) Lymphocytes % (Manual) Seg Neutrophils # Seg Neutrophils # Man Lymphocytes # (Manual) D-Dimer ABG pH POC ABG pCO2 POC ABG pO2 ABG pO2 ABG HCO3 ABG O2 Saturation ABG Base Excess ABG Oxyhemoglobin ABG Sodium ABG Chloride ABG Glucose Oxyhemoglobin Carboxyhemoglobin Sodium Potassium Chloride Carbon Dioxide BUN Creatinine Glucose POC Glucose 141 H 220 H Hemoglobin A1c Magnesium Ferritin AST ALT Alkaline Phosphatase Lactate Dehydrogenase C-Reactive Protein Total Protein Albumin Arterial Blood Glucose Coronavirus (PCR) 04/29/21 04/29/21 04/29/21 14:23 15:30 17:06 WBC MCV MCH MCHC RDW Lymph % (Auto) [place] % (Auto) Eos % (Auto) Lymph # (Auto) [place] # (Auto) Eos # (Auto) Baso # (Auto) Seg Neutrophils % Seg Neuts % (Manual) Lymphocytes % (Manual) Seg Neutrophils # Seg Neutrophils # Man Lymphocytes # (Manual) D-Dimer ABG pH POC ABG pCO2 POC ABG pO2 ABG pO2 52.6 L ABG HCO3 ABG O2 Saturation 86.4 L ABG Base Excess ABG Oxyhemoglobin ABG Sodium ABG Chloride ABG Glucose Oxyhemoglobin 84.6 L Carboxyhemoglobin Sodium Potassium Chloride Carbon Dioxide BUN Creatinine Glucose POC Glucose 173 H 158 H Hemoglobin A1c Magnesium Ferritin AST ALT Alkaline Phosphatase Lactate Dehydrogenase C-Reactive Protein Total Protein Albumin Arterial Blood Glucose Coronavirus (PCR) 04/29/21 04/30/21 04/30/21 21:27 07:16 08:00 WBC MCV MCH MCHC RDW 16.1 H Lymph % (Auto) [place] % (Auto) Eos % (Auto) Lymph # (Auto) [place] # (Auto) Eos # (Auto) Baso # (Auto) Seg Neutrophils % Seg Neuts % (Manual) Lymphocytes % (Manual) Seg Neutrophils # Seg Neutrophils # Man Lymphocytes # (Manual) D-Dimer ABG pH POC ABG pCO2 POC ABG pO2 ABG pO2 ABG HCO3 ABG O2 Saturation ABG Base Excess ABG Oxyhemoglobin ABG Sodium ABG Chloride ABG Glucose Oxyhemoglobin Carboxyhemoglobin Sodium Potassium Chloride Carbon Dioxide BUN Creatinine Glucose POC Glucose 244 H 175 H Hemoglobin A1c Magnesium Ferritin AST ALT Alkaline Phosphatase Lactate Dehydrogenase C-Reactive Protein Total Protein Albumin Arterial Blood Glucose Coronavirus (PCR) 04/30/21 04/30/21 04/30/21 08:00 08:00 11:03 WBC MCV MCH MCHC RDW Lymph % (Auto) [place] % (Auto) Eos % (Auto) Lymph # (Auto) [place] # (Auto) Eos # (Auto) Baso # (Auto) Seg Neutrophils % Seg Neuts % (Manual) Lymphocytes % (Manual) Seg Neutrophils # Seg Neutrophils # Man Lymphocytes # (Manual) D-Dimer 1796.87 H ABG pH POC ABG pCO2 POC ABG pO2 ABG pO2 ABG HCO3 ABG O2 Saturation ABG Base Excess ABG Oxyhemoglobin ABG Sodium ABG Chloride ABG Glucose Oxyhemoglobin Carboxyhemoglobin Sodium 135 L Potassium Chloride 96.3 L Carbon Dioxide BUN Creatinine 0.2 L Glucose 153 H POC Glucose 183 H Hemoglobin A1c Magnesium Ferritin AST 41 H ALT 76 H Alkaline Phosphatase 160 H Lactate Dehydrogenase 522 H C-Reactive Protein Total Protein 6.1 L Albumin 3.1 L Arterial Blood Glucose Coronavirus (PCR) 04/30/21 04/30/21 05/01/21 17:04 22:17 05:39 WBC MCV MCH MCHC RDW Lymph % (Auto) [place] % (Auto) Eos % (Auto) Lymph # (Auto) [place] # (Auto) Eos # (Auto) Baso # (Auto) Seg Neutrophils % Seg Neuts % (Manual) Lymphocytes % (Manual) Seg Neutrophils # Seg Neutrophils # Man Lymphocytes # (Manual) D-Dimer ABG pH POC ABG pCO2 POC ABG pO2 ABG pO2 ABG HCO3 ABG O2 Saturation ABG Base Excess ABG Oxyhemoglobin ABG Sodium ABG Chloride ABG Glucose Oxyhemoglobin Carboxyhemoglobin Sodium 133 L Potassium Chloride 92.1 L Carbon Dioxide BUN 24 H Creatinine 0.4 L D Glucose 269 H POC Glucose 167 H 208 H Hemoglobin A1c Magnesium Ferritin AST ALT 66 H Alkaline Phosphatase 142 H Lactate Dehydrogenase C-Reactive Protein Total Protein Albumin 3.2 L Arterial Blood Glucose Coronavirus (PCR) 05/01/21 05/01/21 05/01/21 05:39 05:39 07:45 WBC MCV MCH MCHC RDW 16.0 H Lymph % (Auto) [place] % (Auto) Eos % (Auto) Lymph # (Auto) [place] # (Auto) Eos # (Auto) Baso # (Auto) Seg Neutrophils % Seg Neuts % (Manual) Lymphocytes % (Manual) Seg Neutrophils # Seg Neutrophils # Man Lymphocytes # (Manual) D-Dimer 3984.95 H ABG pH POC ABG pCO2 POC ABG pO2 ABG pO2 ABG HCO3 ABG O2 Saturation ABG Base Excess ABG Oxyhemoglobin ABG Sodium ABG Chloride ABG Glucose Oxyhemoglobin Carboxyhemoglobin Sodium Potassium Chloride Carbon Dioxide BUN Creatinine Glucose POC Glucose 229 H Hemoglobin A1c Magnesium Ferritin AST ALT Alkaline Phosphatase Lactate Dehydrogenase C-Reactive Protein Total Protein Albumin Arterial Blood Glucose Coronavirus (PCR) 05/01/21 05/01/21 05/01/21 12:10 15:46 21:06 WBC MCV MCH MCHC RDW Lymph % (Auto) [place] % (Auto) Eos % (Auto) Lymph # (Auto) [place] # (Auto) Eos # (Auto) Baso # (Auto) Seg Neutrophils % Seg Neuts % (Manual) Lymphocytes % (Manual) Seg Neutrophils # Seg Neutrophils # Man Lymphocytes # (Manual) D-Dimer ABG pH POC ABG pCO2 POC ABG pO2 ABG pO2 ABG HCO3 ABG O2 Saturation ABG Base Excess ABG Oxyhemoglobin ABG Sodium ABG Chloride ABG Glucose Oxyhemoglobin Carboxyhemoglobin Sodium Potassium Chloride Carbon Dioxide BUN Creatinine Glucose POC Glucose 296 H 279 H 232 H Hemoglobin A1c Magnesium Ferritin AST ALT Alkaline Phosphatase Lactate Dehydrogenase C-Reactive Protein Total Protein Albumin Arterial Blood Glucose Coronavirus (PCR) 05/02/21 05/02/21 05/02/21 04:55 04:55 04:55 WBC MCV MCH MCHC RDW 16.1 H Lymph % (Auto) [place] % (Auto) Eos % (Auto) Lymph # (Auto) [place] # (Auto) Eos # (Auto) Baso # (Auto) Seg Neutrophils % Seg Neuts % (Manual) Lymphocytes % (Manual) Seg Neutrophils # Seg Neutrophils # Man Lymphocytes # (Manual) D-Dimer 1401.08 H ABG pH POC ABG pCO2 POC ABG pO2 ABG pO2 ABG HCO3 ABG O2 Saturation ABG Base Excess ABG Oxyhemoglobin ABG Sodium ABG Chloride ABG Glucose Oxyhemoglobin Carboxyhemoglobin Sodium 131 L Potassium Chloride 95.5 L Carbon Dioxide BUN 20 H Creatinine 0.3 L Glucose 288 H POC Glucose Hemoglobin A1c Magnesium Ferritin AST ALT Alkaline Phosphatase Lactate Dehydrogenase C-Reactive Protein Total Protein 6.0 L Albumin 3.1 L Arterial Blood Glucose Coronavirus (PCR) 05/02/21 05/02/21 05/02/21 07:53 11:45 15:25 WBC MCV MCH MCHC RDW Lymph % (Auto) [place] % (Auto) Eos % (Auto) Lymph # (Auto) [place] # (Auto) Eos # (Auto) Baso # (Auto) Seg Neutrophils % Seg Neuts % (Manual) Lymphocytes % (Manual) Seg Neutrophils # Seg Neutrophils # Man Lymphocytes # (Manual) D-Dimer ABG pH POC ABG pCO2 POC ABG pO2 ABG pO2 ABG HCO3 ABG O2 Saturation ABG Base Excess ABG Oxyhemoglobin ABG Sodium ABG Chloride ABG Glucose Oxyhemoglobin Carboxyhemoglobin Sodium Potassium Chloride Carbon Dioxide BUN Creatinine Glucose POC Glucose 180 H 228 H 275 H Hemoglobin A1c Magnesium Ferritin AST ALT Alkaline Phosphatase Lactate Dehydrogenase C-Reactive Protein Total Protein Albumin Arterial Blood Glucose Coronavirus (PCR) 05/02/21 05/03/21 05/03/21 22:56 04:30 04:49 WBC MCV MCH MCHC RDW Lymph % (Auto) [place] % (Auto) Eos % (Auto) Lymph # (Auto) [place] # (Auto) Eos # (Auto) Baso # (Auto) Seg Neutrophils % Seg Neuts % (Manual) Lymphocytes % (Manual) Seg Neutrophils # Seg Neutrophils # Man Lymphocytes # (Manual) D-Dimer ABG pH 7.229 L POC ABG pCO2 POC ABG pO2 65.3 L ABG pO2 ABG HCO3 ABG O2 Saturation ABG Base Excess ABG Oxyhemoglobin 87.8 L ABG Sodium 133.0 L ABG Chloride 97.0 L ABG Glucose 403 H Oxyhemoglobin Carboxyhemoglobin Sodium 130 L Potassium Chloride 94.9 L Carbon Dioxide BUN 20 H Creatinine 0.5 L D Glucose 359 H POC Glucose 293 H Hemoglobin A1c Magnesium Ferritin AST 54 H ALT 75 H Alkaline Phosphatase 138 H Lactate Dehydrogenase C-Reactive Protein Total Protein Albumin 3.6 L Arterial Blood Glucose 403 H Coronavirus (PCR) 05/03/21 05/03/21 05/03/21 05:27 11:26 17:57 WBC MCV MCH MCHC RDW Lymph % (Auto) [place] % (Auto) Eos % (Auto) Lymph # (Auto) [place] # (Auto) Eos # (Auto) Baso # (Auto) Seg Neutrophils % Seg Neuts % (Manual) Lymphocytes % (Manual) Seg Neutrophils # Seg Neutrophils # Man Lymphocytes # (Manual) D-Dimer ABG pH POC ABG pCO2 POC ABG pO2 ABG pO2 ABG HCO3 ABG O2 Saturation ABG Base Excess ABG Oxyhemoglobin ABG Sodium ABG Chloride ABG Glucose Oxyhemoglobin Carboxyhemoglobin Sodium Potassium Chloride Carbon Dioxide BUN Creatinine Glucose POC Glucose 361 H 297 H 226 H Hemoglobin A1c Magnesium Ferritin AST ALT Alkaline Phosphatase Lactate Dehydrogenase C-Reactive Protein Total Protein Albumin Arterial Blood Glucose Coronavirus (PCR) 05/03/21 05/04/21 05/04/21 23:12 05:12 07:30 WBC MCV MCH MCHC RDW Lymph % (Auto) [place] % (Auto) Eos % (Auto) Lymph # (Auto) [place] # (Auto) Eos # (Auto) Baso # (Auto) Seg Neutrophils % Seg Neuts % (Manual) Lymphocytes % (Manual) Seg Neutrophils # Seg Neutrophils # Man Lymphocytes # (Manual) D-Dimer ABG pH POC ABG pCO2 POC ABG pO2 ABG pO2 ABG HCO3 ABG O2 Saturation ABG Base Excess ABG Oxyhemoglobin ABG Sodium ABG Chloride ABG Glucose Oxyhemoglobin Carboxyhemoglobin Sodium Potassium Chloride Carbon Dioxide BUN Creatinine Glucose POC Glucose 282 H 285 H 254 H Hemoglobin A1c Magnesium Ferritin AST ALT Alkaline Phosphatase Lactate Dehydrogenase C-Reactive Protein Total Protein Albumin Arterial Blood Glucose Coronavirus (PCR) 05/04/21 05/04/21 05/04/21 08:58 11:45 16:07 WBC MCV MCH MCHC RDW Lymph % (Auto) [place] % (Auto) Eos % (Auto) Lymph # (Auto) [place] # (Auto) Eos # (Auto) Baso # (Auto) Seg Neutrophils % Seg Neuts % (Manual) Lymphocytes % (Manual) Seg Neutrophils # Seg Neutrophils # Man Lymphocytes # (Manual) D-Dimer ABG pH POC ABG pCO2 POC ABG pO2 ABG pO2 ABG HCO3 ABG O2 Saturation ABG Base Excess ABG Oxyhemoglobin ABG Sodium ABG Chloride ABG Glucose Oxyhemoglobin Carboxyhemoglobin Sodium 134 L Potassium Chloride Carbon Dioxide BUN 20 H Creatinine 0.3 L Glucose 267 H POC Glucose 244 H 297 H Hemoglobin A1c Magnesium Ferritin AST ALT Alkaline Phosphatase Lactate Dehydrogenase C-Reactive Protein Total Protein 6.0 L Albumin 3.2 L Arterial Blood Glucose Coronavirus (PCR) 05/04/21 05/05/21 05/05/21 23:32 05:00 05:13 WBC MCV MCH MCHC RDW Lymph % (Auto) [place] % (Auto) Eos % (Auto) Lymph # (Auto) [place] # (Auto) Eos # (Auto) Baso # (Auto) Seg Neutrophils % Seg Neuts % (Manual) Lymphocytes % (Manual) Seg Neutrophils # Seg Neutrophils # Man Lymphocytes # (Manual) D-Dimer ABG pH POC ABG pCO2 POC ABG pO2 ABG pO2 ABG HCO3 ABG O2 Saturation ABG Base Excess ABG Oxyhemoglobin ABG Sodium ABG Chloride ABG Glucose Oxyhemoglobin Carboxyhemoglobin Sodium 132 L Potassium Chloride 96.4 L Carbon Dioxide BUN 22 H Creatinine 0.3 L Glucose 228 H POC Glucose 154 H 260 H Hemoglobin A1c Magnesium Ferritin AST ALT 67 H Alkaline Phosphatase Lactate Dehydrogenase C-Reactive Protein Total Protein 6.1 L Albumin 3.2 L Arterial Blood Glucose Coronavirus (PCR) 05/05/21 05/05/21 05/05/21 11:32 17:49 23:07 WBC MCV MCH MCHC RDW Lymph % (Auto) [place] % (Auto) Eos % (Auto) Lymph # (Auto) [place] # (Auto) Eos # (Auto) Baso # (Auto) Seg Neutrophils % Seg Neuts % (Manual) Lymphocytes % (Manual) Seg Neutrophils # Seg Neutrophils # Man Lymphocytes # (Manual) D-Dimer ABG pH POC ABG pCO2 POC ABG pO2 ABG pO2 ABG HCO3 ABG O2 Saturation ABG Base Excess ABG Oxyhemoglobin ABG Sodium ABG Chloride ABG Glucose Oxyhemoglobin Carboxyhemoglobin Sodium Potassium Chloride Carbon Dioxide BUN Creatinine Glucose POC Glucose 279 H 308 H 213 H Hemoglobin A1c Magnesium Ferritin AST ALT Alkaline Phosphatase Lactate Dehydrogenase C-Reactive Protein Total Protein Albumin Arterial Blood Glucose Coronavirus (PCR) 05/06/21 05/06/21 05/06/21 05:00 05:00 05:20 WBC MCV MCH MCHC RDW 16.8 H Lymph % (Auto) [place] % (Auto) Eos % (Auto) Lymph # (Auto) [place] # (Auto) Eos # (Auto) Baso # (Auto) Seg Neutrophils % Seg Neuts % (Manual) 99.0 H Lymphocytes % (Manual) Seg Neutrophils # Seg Neutrophils # Man 10.9 H Lymphocytes # (Manual) 0.0 L D-Dimer ABG pH POC ABG pCO2 POC ABG pO2 ABG pO2 ABG HCO3 ABG O2 Saturation ABG Base Excess ABG Oxyhemoglobin ABG Sodium ABG Chloride ABG Glucose Oxyhemoglobin Carboxyhemoglobin Sodium 133 L Potassium Chloride Carbon Dioxide BUN 21 H Creatinine 0.3 L Glucose 259 H POC Glucose 308 H Hemoglobin A1c Magnesium Ferritin AST ALT Alkaline Phosphatase Lactate Dehydrogenase C-Reactive Protein Total Protein Albumin 3.2 L Arterial Blood Glucose Coronavirus (PCR) 05/06/21 05/06/21 05/06/21 11:24 17:54 21:32 WBC MCV MCH MCHC RDW Lymph % (Auto) [place] % (Auto) Eos % (Auto) Lymph # (Auto) [place] # (Auto) Eos # (Auto) Baso # (Auto) Seg Neutrophils % Seg Neuts % (Manual) Lymphocytes % (Manual) Seg Neutrophils # Seg Neutrophils # Man Lymphocytes # (Manual) D-Dimer ABG pH POC ABG pCO2 POC ABG pO2 ABG pO2 ABG HCO3 ABG O2 Saturation ABG Base Excess ABG Oxyhemoglobin ABG Sodium ABG Chloride ABG Glucose Oxyhemoglobin Carboxyhemoglobin Sodium Potassium Chloride Carbon Dioxide BUN Creatinine Glucose POC Glucose 262 H 124 H 246 H Hemoglobin A1c Magnesium Ferritin AST ALT Alkaline Phosphatase Lactate Dehydrogenase C-Reactive Protein Total Protein Albumin Arterial Blood Glucose Coronavirus (PCR) 05/06/21 05/07/21 05/07/21 23:10 04:54 04:54 WBC MCV MCH MCHC RDW Lymph % (Auto) [place] % (Auto) Eos % (Auto) Lymph # (Auto) [place] # (Auto) Eos # (Auto) Baso # (Auto) Seg Neutrophils % Seg Neuts % (Manual) Lymphocytes % (Manual) Seg Neutrophils # Seg Neutrophils # Man Lymphocytes # (Manual) D-Dimer 1609.28 H ABG pH POC ABG pCO2 POC ABG pO2 ABG pO2 ABG HCO3 ABG O2 Saturation ABG Base Excess ABG Oxyhemoglobin ABG Sodium ABG Chloride ABG Glucose Oxyhemoglobin Carboxyhemoglobin Sodium 136 L Potassium Chloride Carbon Dioxide BUN 23 H Creatinine 0.3 L Glucose 110 H POC Glucose 249 H Hemoglobin A1c Magnesium Ferritin AST ALT Alkaline Phosphatase Lactate Dehydrogenase C-Reactive Protein Total Protein 6.2 L Albumin 3.0 L Arterial Blood Glucose Coronavirus (PCR) 05/07/21 05/07/21 05/07/21 04:54 04:54 11:41 WBC MCV MCH MCHC RDW Lymph % (Auto) [place] % (Auto) Eos % (Auto) Lymph # (Auto) [place] # (Auto) Eos # (Auto) Baso # (Auto) Seg Neutrophils % Seg Neuts % (Manual) Lymphocytes % (Manual) Seg Neutrophils # Seg Neutrophils # Man Lymphocytes # (Manual) D-Dimer ABG pH POC ABG pCO2 POC ABG pO2 ABG pO2 ABG HCO3 ABG O2 Saturation ABG Base Excess ABG Oxyhemoglobin ABG Sodium ABG Chloride ABG Glucose Oxyhemoglobin Carboxyhemoglobin Sodium Potassium Chloride Carbon Dioxide BUN Creatinine Glucose POC Glucose 118 H Hemoglobin A1c Magnesium Ferritin 296.1 H AST ALT Alkaline Phosphatase Lactate Dehydrogenase 724 H C-Reactive Protein Total Protein Albumin Arterial Blood Glucose Coronavirus (PCR) 05/07/21 05/07/21 05/08/21 16:43 22:34 06:44 WBC MCV MCH MCHC RDW Lymph % (Auto) [place] % (Auto) Eos % (Auto) Lymph # (Auto) [place] # (Auto) Eos # (Auto) Baso # (Auto) Seg Neutrophils % Seg Neuts % (Manual) Lymphocytes % (Manual) Seg Neutrophils # Seg Neutrophils # Man Lymphocytes # (Manual) D-Dimer ABG pH POC ABG pCO2 POC ABG pO2 ABG pO2 ABG HCO3 ABG O2 Saturation ABG Base Excess ABG Oxyhemoglobin ABG Sodium ABG Chloride ABG Glucose Oxyhemoglobin Carboxyhemoglobin Sodium Potassium Chloride Carbon Dioxide BUN Creatinine Glucose POC Glucose 159 H 233 H 235 H Hemoglobin A1c Magnesium Ferritin AST ALT Alkaline Phosphatase Lactate Dehydrogenase C-Reactive Protein Total Protein Albumin Arterial Blood Glucose Coronavirus (PCR) 05/08/21 05/08/21 05/08/21 07:49 11:56 17:13 WBC MCV MCH MCHC RDW Lymph % (Auto) [place] % (Auto) Eos % (Auto) Lymph # (Auto) [place] # (Auto) Eos # (Auto) Baso # (Auto) Seg Neutrophils % Seg Neuts % (Manual) Lymphocytes % (Manual) Seg Neutrophils # Seg Neutrophils # Man Lymphocytes # (Manual) D-Dimer ABG pH POC ABG pCO2 POC ABG pO2 ABG pO2 ABG HCO3 ABG O2 Saturation ABG Base Excess ABG Oxyhemoglobin ABG Sodium ABG Chloride ABG Glucose Oxyhemoglobin Carboxyhemoglobin Sodium Potassium Chloride Carbon Dioxide BUN Creatinine Glucose POC Glucose 219 H 184 H 182 H Hemoglobin A1c Magnesium Ferritin AST ALT Alkaline Phosphatase Lactate Dehydrogenase C-Reactive Protein Total Protein Albumin Arterial Blood Glucose Coronavirus (PCR) 05/08/21 05/09/21 05/09/21 23:35 05:20 05:20 WBC MCV MCH MCHC RDW Lymph % (Auto) [place] % (Auto) Eos % (Auto) Lymph # (Auto) [place] # (Auto) Eos # (Auto) Baso # (Auto) Seg Neutrophils % Seg Neuts % (Manual) Lymphocytes % (Manual) Seg Neutrophils # Seg Neutrophils # Man Lymphocytes # (Manual) D-Dimer 1003.87 H ABG pH POC ABG pCO2 POC ABG pO2 ABG pO2 ABG HCO3 ABG O2 Saturation ABG Base Excess ABG Oxyhemoglobin ABG Sodium ABG Chloride ABG Glucose Oxyhemoglobin Carboxyhemoglobin Sodium Potassium Chloride Carbon Dioxide BUN Creatinine Glucose POC Glucose 198 H Hemoglobin A1c Magnesium Ferritin 378.7 H AST ALT Alkaline Phosphatase Lactate Dehydrogenase C-Reactive Protein Total Protein Albumin Arterial Blood Glucose Coronavirus (PCR) 05/09/21 05/09/21 05/09/21 05:20 06:04 12:53 WBC MCV MCH MCHC RDW Lymph % (Auto) [place] % (Auto) Eos % (Auto) Lymph # (Auto) [place] # (Auto) Eos # (Auto) Baso # (Auto) Seg Neutrophils % Seg Neuts % (Manual) Lymphocytes % (Manual) Seg Neutrophils # Seg Neutrophils # Man Lymphocytes # (Manual) D-Dimer ABG pH POC ABG pCO2 POC ABG pO2 ABG pO2 ABG HCO3 ABG O2 Saturation ABG Base Excess ABG Oxyhemoglobin ABG Sodium ABG Chloride ABG Glucose Oxyhemoglobin Carboxyhemoglobin Sodium Potassium Chloride Carbon Dioxide BUN Creatinine Glucose POC Glucose 159 H 180 H Hemoglobin A1c Magnesium Ferritin AST ALT Alkaline Phosphatase Lactate Dehydrogenase 558 H C-Reactive Protein 2.40 H Total Protein Albumin Arterial Blood Glucose Coronavirus (PCR) 05/09/21 05/09/21 05/10/21 16:43 21:27 10:18 WBC MCV MCH MCHC RDW Lymph % (Auto) [place] % (Auto) Eos % (Auto) Lymph # (Auto) [place] # (Auto) Eos # (Auto) Baso # (Auto) Seg Neutrophils % Seg Neuts % (Manual) Lymphocytes % (Manual) Seg Neutrophils # Seg Neutrophils # Man Lymphocytes # (Manual) D-Dimer ABG pH POC ABG pCO2 POC ABG pO2 ABG pO2 ABG HCO3 ABG O2 Saturation ABG Base Excess ABG Oxyhemoglobin ABG Sodium ABG Chloride ABG Glucose Oxyhemoglobin Carboxyhemoglobin Sodium Potassium Chloride Carbon Dioxide BUN Creatinine Glucose POC Glucose 212 H 285 H 261 H Hemoglobin A1c Magnesium Ferritin AST ALT Alkaline Phosphatase Lactate Dehydrogenase C-Reactive Protein Total Protein Albumin Arterial Blood Glucose Coronavirus (PCR) 05/10/21 05/10/21 05/11/21 17:58 18:02 00:29 WBC MCV MCH MCHC RDW Lymph % (Auto) [place] % (Auto) Eos % (Auto) Lymph # (Auto) [place] # (Auto) Eos # (Auto) Baso # (Auto) Seg Neutrophils % Seg Neuts % (Manual) Lymphocytes % (Manual) Seg Neutrophils # Seg Neutrophils # Man Lymphocytes # (Manual) D-Dimer ABG pH POC ABG pCO2 POC ABG pO2 ABG pO2 ABG HCO3 ABG O2 Saturation ABG Base Excess ABG Oxyhemoglobin ABG Sodium ABG Chloride ABG Glucose Oxyhemoglobin Carboxyhemoglobin Sodium Potassium Chloride Carbon Dioxide BUN Creatinine Glucose POC Glucose 213 H 179 H 149 H Hemoglobin A1c Magnesium Ferritin AST ALT Alkaline Phosphatase Lactate Dehydrogenase C-Reactive Protein Total Protein Albumin Arterial Blood Glucose Coronavirus (PCR) 05/11/21 05/11/21 05/11/21 05:22 11:32 17:00 WBC 14.9 H MCV MCH MCHC RDW 18.9 H Lymph % (Auto) 4.9 L [place] % (Auto) Eos % (Auto) Lymph # (Auto) 0.7 L [place] # (Auto) Eos # (Auto) Baso # (Auto) 0.2 H Seg Neutrophils % Seg Neuts % (Manual) Lymphocytes % (Manual) Seg Neutrophils # 13.3 H Seg Neutrophils # Man Lymphocytes # (Manual) D-Dimer ABG pH POC ABG pCO2 POC ABG pO2 ABG pO2 ABG HCO3 ABG O2 Saturation ABG Base Excess ABG Oxyhemoglobin ABG Sodium ABG Chloride ABG Glucose Oxyhemoglobin Carboxyhemoglobin Sodium Potassium Chloride Carbon Dioxide BUN Creatinine Glucose POC Glucose 162 H 179 H Hemoglobin A1c Magnesium Ferritin AST ALT Alkaline Phosphatase Lactate Dehydrogenase C-Reactive Protein Total Protein Albumin Arterial Blood Glucose Coronavirus (PCR) 05/11/21 05/11/21 05/11/21 17:00 17:33 22:03 WBC MCV MCH MCHC RDW Lymph % (Auto) [place] % (Auto) Eos % (Auto) Lymph # (Auto) [place] # (Auto) Eos # (Auto) Baso # (Auto) Seg Neutrophils % Seg Neuts % (Manual) Lymphocytes % (Manual) Seg Neutrophils # Seg Neutrophils # Man Lymphocytes # (Manual) D-Dimer ABG pH POC ABG pCO2 POC ABG pO2 ABG pO2 ABG HCO3 ABG O2 Saturation ABG Base Excess ABG Oxyhemoglobin ABG Sodium ABG Chloride ABG Glucose Oxyhemoglobin Carboxyhemoglobin Sodium 135 L Potassium Chloride 97.3 L Carbon Dioxide BUN 21 H Creatinine 0.3 L Glucose 133 H POC Glucose 140 H 282 H Hemoglobin A1c Magnesium Ferritin AST ALT 60 H Alkaline Phosphatase Lactate Dehydrogenase C-Reactive Protein Total Protein Albumin 3.1 L Arterial Blood Glucose Coronavirus (PCR) 05/12/21 05/12/21 05/12/21 04:05 04:05 04:05 WBC MCV MCH MCHC RDW 18.4 H Lymph % (Auto) [place] % (Auto) Eos % (Auto) Lymph # (Auto) [place] # (Auto) Eos # (Auto) Baso # (Auto) Seg Neutrophils % Seg Neuts % (Manual) 94.0 H Lymphocytes % (Manual) 4.0 L Seg Neutrophils # Seg Neutrophils # Man Lymphocytes # (Manual) 0.3 L D-Dimer ABG pH POC ABG pCO2 POC ABG pO2 ABG pO2 ABG HCO3 ABG O2 Saturation ABG Base Excess ABG Oxyhemoglobin ABG Sodium ABG Chloride ABG Glucose Oxyhemoglobin Carboxyhemoglobin Sodium 136 L Potassium Chloride Carbon Dioxide BUN 18 H Creatinine 0.2 L Glucose 142 H POC Glucose Hemoglobin A1c Magnesium Ferritin 350.7 H AST ALT Alkaline Phosphatase Lactate Dehydrogenase 546 H C-Reactive Protein Total Protein 6.1 L Albumin 3.0 L Arterial Blood Glucose Coronavirus (PCR) 05/12/21 05/12/21 05/12/21 05:11 11:17 16:27 WBC MCV MCH MCHC RDW Lymph % (Auto) [place] % (Auto) Eos % (Auto) Lymph # (Auto) [place] # (Auto) Eos # (Auto) Baso # (Auto) Seg Neutrophils % Seg Neuts % (Manual) Lymphocytes % (Manual) Seg Neutrophils # Seg Neutrophils # Man Lymphocytes # (Manual) D-Dimer ABG pH POC ABG pCO2 POC ABG pO2 ABG pO2 ABG HCO3 ABG O2 Saturation ABG Base Excess ABG Oxyhemoglobin ABG Sodium ABG Chloride ABG Glucose Oxyhemoglobin Carboxyhemoglobin Sodium Potassium Chloride Carbon Dioxide BUN Creatinine Glucose POC Glucose 152 H 190 H 261 H Hemoglobin A1c Magnesium Ferritin AST ALT Alkaline Phosphatase Lactate Dehydrogenase C-Reactive Protein Total Protein Albumin Arterial Blood Glucose Coronavirus (PCR) 05/12/21 05/13/21 05/13/21 20:55 11:08 21:41 WBC MCV MCH MCHC RDW Lymph % (Auto) [place] % (Auto) Eos % (Auto) Lymph # (Auto) [place] # (Auto) Eos # (Auto) Baso # (Auto) Seg Neutrophils % Seg Neuts % (Manual) Lymphocytes % (Manual) Seg Neutrophils # Seg Neutrophils # Man Lymphocytes # (Manual) D-Dimer ABG pH POC ABG pCO2 POC ABG pO2 ABG pO2 ABG HCO3 ABG O2 Saturation ABG Base Excess ABG Oxyhemoglobin ABG Sodium ABG Chloride ABG Glucose Oxyhemoglobin Carboxyhemoglobin Sodium Potassium Chloride Carbon Dioxide BUN Creatinine Glucose POC Glucose 231 H 106 H 174 H Hemoglobin A1c Magnesium Ferritin AST ALT Alkaline Phosphatase Lactate Dehydrogenase C-Reactive Protein Total Protein Albumin Arterial Blood Glucose Coronavirus (PCR) 05/14/21 05/14/21 05/14/21 00:53 02:23 06:06 WBC MCV MCH MCHC RDW Lymph % (Auto) [place] % (Auto) Eos % (Auto) Lymph # (Auto) [place] # (Auto) Eos # (Auto) Baso # (Auto) Seg Neutrophils % Seg Neuts % (Manual) Lymphocytes % (Manual) Seg Neutrophils # Seg Neutrophils # Man Lymphocytes # (Manual) D-Dimer ABG pH POC ABG pCO2 POC ABG pO2 ABG pO2 130.3 H ABG HCO3 30.6 H ABG O2 Saturation ABG Base Excess 4.9 H ABG Oxyhemoglobin ABG Sodium ABG Chloride ABG Glucose Oxyhemoglobin Carboxyhemoglobin Sodium Potassium Chloride Carbon Dioxide BUN Creatinine Glucose POC Glucose 229 H 119 H Hemoglobin A1c Magnesium Ferritin AST ALT Alkaline Phosphatase Lactate Dehydrogenase C-Reactive Protein Total Protein Albumin Arterial Blood Glucose Coronavirus (PCR) 05/14/21 05/14/21 05/14/21 07:13 07:13 07:13 WBC MCV MCH MCHC RDW Lymph % (Auto) [place] % (Auto) Eos % (Auto) Lymph # (Auto) [place] # (Auto) Eos # (Auto) Baso # (Auto) Seg Neutrophils % Seg Neuts % (Manual) Lymphocytes % (Manual) Seg Neutrophils # Seg Neutrophils # Man Lymphocytes # (Manual) D-Dimer 712.80 H ABG pH POC ABG pCO2 POC ABG pO2 ABG pO2 ABG HCO3 ABG O2 Saturation ABG Base Excess ABG Oxyhemoglobin ABG Sodium ABG Chloride ABG Glucose Oxyhemoglobin Carboxyhemoglobin Sodium 133 L Potassium Chloride 95.5 L Carbon Dioxide 32 H BUN Creatinine 0.2 L Glucose 137 H POC Glucose Hemoglobin A1c Magnesium Ferritin 283.5 H AST ALT 63 H Alkaline Phosphatase Lactate Dehydrogenase 563 H C-Reactive Protein Total Protein 6.1 L Albumin 3.0 L Arterial Blood Glucose Coronavirus (PCR) 05/14/21 05/14/21 05/14/21 12:21 15:33 21:50 WBC MCV MCH MCHC RDW Lymph % (Auto) [place] % (Auto) Eos % (Auto) Lymph # (Auto) [place] # (Auto) Eos # (Auto) Baso # (Auto) Seg Neutrophils % Seg Neuts % (Manual) Lymphocytes % (Manual) Seg Neutrophils # Seg Neutrophils # Man Lymphocytes # (Manual) D-Dimer ABG pH POC ABG pCO2 POC ABG pO2 ABG pO2 ABG HCO3 ABG O2 Saturation ABG Base Excess ABG Oxyhemoglobin ABG Sodium ABG Chloride ABG Glucose Oxyhemoglobin Carboxyhemoglobin Sodium Potassium Chloride Carbon Dioxide BUN Creatinine Glucose POC Glucose 143 H 204 H 202 H Hemoglobin A1c Magnesium Ferritin AST ALT Alkaline Phosphatase Lactate Dehydrogenase C-Reactive Protein Total Protein Albumin Arterial Blood Glucose Coronavirus (PCR) 05/15/21 05/15/21 05/15/21 05:05 11:12 16:39 WBC MCV MCH MCHC RDW Lymph % (Auto) [place] % (Auto) Eos % (Auto) Lymph # (Auto) [place] # (Auto) Eos # (Auto) Baso # (Auto) Seg Neutrophils % Seg Neuts % (Manual) Lymphocytes % (Manual) Seg Neutrophils # Seg Neutrophils # Man Lymphocytes # (Manual) D-Dimer ABG pH POC ABG pCO2 POC ABG pO2 ABG pO2 ABG HCO3 ABG O2 Saturation ABG Base Excess ABG Oxyhemoglobin ABG Sodium ABG Chloride ABG Glucose Oxyhemoglobin Carboxyhemoglobin Sodium Potassium Chloride Carbon Dioxide BUN Creatinine Glucose POC Glucose 125 H 201 H 241 H Hemoglobin A1c Magnesium Ferritin AST ALT Alkaline Phosphatase Lactate Dehydrogenase C-Reactive Protein Total Protein Albumin Arterial Blood Glucose Coronavirus (PCR) 05/15/21 05/16/21 05/16/21 21:31 05:04 10:40 WBC MCV MCH MCHC RDW Lymph % (Auto) [place] % (Auto) Eos % (Auto) Lymph # (Auto) [place] # (Auto) Eos # (Auto) Baso # (Auto) Seg Neutrophils % Seg Neuts % (Manual) Lymphocytes % (Manual) Seg Neutrophils # Seg Neutrophils # Man Lymphocytes # (Manual) D-Dimer ABG pH POC ABG pCO2 POC ABG pO2 ABG pO2 ABG HCO3 ABG O2 Saturation ABG Base Excess ABG Oxyhemoglobin ABG Sodium ABG Chloride ABG Glucose Oxyhemoglobin Carboxyhemoglobin Sodium Potassium Chloride Carbon Dioxide BUN Creatinine Glucose POC Glucose 234 H 123 H 231 H Hemoglobin A1c Magnesium Ferritin AST ALT Alkaline Phosphatase Lactate Dehydrogenase C-Reactive Protein Total Protein Albumin Arterial Blood Glucose Coronavirus (PCR) 05/16/21 05/16/21 05/17/21 18:23 21:29 06:20 WBC MCV MCH MCHC RDW 18.8 H Lymph % (Auto) 10.2 L [place] % (Auto) Eos % (Auto) Lymph # (Auto) 0.8 L [place] # (Auto) Eos # (Auto) Baso # (Auto) Seg Neutrophils % 85.8 H Seg Neuts % (Manual) Lymphocytes % (Manual) Seg Neutrophils # Seg Neutrophils # Man Lymphocytes # (Manual) D-Dimer ABG pH POC ABG pCO2 POC ABG pO2 ABG pO2 ABG HCO3 ABG O2 Saturation ABG Base Excess ABG Oxyhemoglobin ABG Sodium ABG Chloride ABG Glucose Oxyhemoglobin Carboxyhemoglobin Sodium Potassium Chloride Carbon Dioxide BUN Creatinine Glucose POC Glucose 266 H 234 H Hemoglobin A1c Magnesium Ferritin AST ALT Alkaline Phosphatase Lactate Dehydrogenase C-Reactive Protein Total Protein Albumin Arterial Blood Glucose Coronavirus (PCR) 05/17/21 05/17/21 05/17/21 06:20 11:06 16:36 WBC MCV MCH MCHC RDW Lymph % (Auto) [place] % (Auto) Eos % (Auto) Lymph # (Auto) [place] # (Auto) Eos # (Auto) Baso # (Auto) Seg Neutrophils % Seg Neuts % (Manual) Lymphocytes % (Manual) Seg Neutrophils # Seg Neutrophils # Man Lymphocytes # (Manual) D-Dimer ABG pH POC ABG pCO2 POC ABG pO2 ABG pO2 ABG HCO3 ABG O2 Saturation ABG Base Excess ABG Oxyhemoglobin ABG Sodium ABG Chloride ABG Glucose Oxyhemoglobin Carboxyhemoglobin Sodium Potassium Chloride Carbon Dioxide 33 H BUN Creatinine 0.2 L Glucose 101 H POC Glucose 209 H 180 H Hemoglobin A1c Magnesium Ferritin AST ALT Alkaline Phosphatase Lactate Dehydrogenase C-Reactive Protein Total Protein Albumin Arterial Blood Glucose Coronavirus (PCR) 05/17/21 05/18/21 05/18/21 21:06 12:00 15:06 WBC MCV MCH MCHC RDW Lymph % (Auto) [place] % (Auto) Eos % (Auto) Lymph # (Auto) [place] # (Auto) Eos # (Auto) Baso # (Auto) Seg Neutrophils % Seg Neuts % (Manual) Lymphocytes % (Manual) Seg Neutrophils # Seg Neutrophils # Man Lymphocytes # (Manual) D-Dimer 874.02 H ABG pH POC ABG pCO2 POC ABG pO2 ABG pO2 ABG HCO3 ABG O2 Saturation ABG Base Excess ABG Oxyhemoglobin ABG Sodium ABG Chloride ABG Glucose Oxyhemoglobin Carboxyhemoglobin Sodium Potassium Chloride Carbon Dioxide BUN Creatinine Glucose POC Glucose 256 H 139 H Hemoglobin A1c Magnesium Ferritin AST ALT Alkaline Phosphatase Lactate Dehydrogenase C-Reactive Protein Total Protein Albumin Arterial Blood Glucose Coronavirus (PCR) 05/18/21 05/18/21 05/18/21 15:06 15:06 16:08 WBC MCV MCH MCHC RDW Lymph % (Auto) [place] % (Auto) Eos % (Auto) Lymph # (Auto) [place] # (Auto) Eos # (Auto) Baso # (Auto) Seg Neutrophils % Seg Neuts % (Manual) Lymphocytes % (Manual) Seg Neutrophils # Seg Neutrophils # Man Lymphocytes # (Manual) D-Dimer ABG pH POC ABG pCO2 POC ABG pO2 ABG pO2 ABG HCO3 ABG O2 Saturation ABG Base Excess ABG Oxyhemoglobin ABG Sodium ABG Chloride ABG Glucose Oxyhemoglobin Carboxyhemoglobin Sodium Potassium Chloride Carbon Dioxide BUN Creatinine Glucose POC Glucose 178 H Hemoglobin A1c Magnesium Ferritin 289.6 H AST ALT Alkaline Phosphatase Lactate Dehydrogenase 605 H C-Reactive Protein Total Protein Albumin Arterial Blood Glucose Coronavirus (PCR) 05/18/21 05/19/21 05/19/21 21:22 11:57 15:26 WBC MCV MCH MCHC RDW Lymph % (Auto) [place] % (Auto) Eos % (Auto) Lymph # (Auto) [place] # (Auto) Eos # (Auto) Baso # (Auto) Seg Neutrophils % Seg Neuts % (Manual) Lymphocytes % (Manual) Seg Neutrophils # Seg Neutrophils # Man Lymphocytes # (Manual) D-Dimer ABG pH POC ABG pCO2 POC ABG pO2 ABG pO2 ABG HCO3 ABG O2 Saturation ABG Base Excess ABG Oxyhemoglobin ABG Sodium ABG Chloride ABG Glucose Oxyhemoglobin Carboxyhemoglobin Sodium Potassium Chloride Carbon Dioxide BUN Creatinine Glucose POC Glucose 241 H 201 H 209 H Hemoglobin A1c Magnesium Ferritin AST ALT Alkaline Phosphatase Lactate Dehydrogenase C-Reactive Protein Total Protein Albumin Arterial Blood Glucose Coronavirus (PCR) 05/19/21 05/20/21 05/20/21 20:59 07:38 08:01 WBC MCV MCH MCHC RDW 19.7 H Lymph % (Auto) 8.3 L [place] % (Auto) Eos % (Auto) Lymph # (Auto) 0.8 L [place] # (Auto) Eos # (Auto) Baso # (Auto) Seg Neutrophils % 88.6 H Seg Neuts % (Manual) Lymphocytes % (Manual) Seg Neutrophils # 8.4 H Seg Neutrophils # Man Lymphocytes # (Manual) D-Dimer ABG pH POC ABG pCO2 POC ABG pO2 ABG pO2 ABG HCO3 ABG O2 Saturation ABG Base Excess ABG Oxyhemoglobin ABG Sodium ABG Chloride ABG Glucose Oxyhemoglobin Carboxyhemoglobin Sodium Potassium Chloride Carbon Dioxide BUN Creatinine Glucose POC Glucose 226 H 130 H Hemoglobin A1c Magnesium Ferritin AST ALT Alkaline Phosphatase Lactate Dehydrogenase C-Reactive Protein Total Protein Albumin Arterial Blood Glucose Coronavirus (PCR) 05/20/21 05/20/21 05/20/21 08:01 11:00 16:43 WBC MCV MCH MCHC RDW Lymph % (Auto) [place] % (Auto) Eos % (Auto) Lymph # (Auto) [place] # (Auto) Eos # (Auto) Baso # (Auto) Seg Neutrophils % Seg Neuts % (Manual) Lymphocytes % (Manual) Seg Neutrophils # Seg Neutrophils # Man Lymphocytes # (Manual) D-Dimer ABG pH POC ABG pCO2 POC ABG pO2 ABG pO2 ABG HCO3 ABG O2 Saturation ABG Base Excess ABG Oxyhemoglobin ABG Sodium ABG Chloride ABG Glucose Oxyhemoglobin Carboxyhemoglobin Sodium Potassium Chloride Carbon Dioxide BUN 18 H Creatinine 0.2 L Glucose 132 H POC Glucose 237 H 240 H Hemoglobin A1c Magnesium Ferritin AST ALT Alkaline Phosphatase Lactate Dehydrogenase C-Reactive Protein Total Protein Albumin Arterial Blood Glucose Coronavirus (PCR) 05/20/21 05/21/21 05/21/21 21:21 07:35 11:32 WBC MCV MCH MCHC RDW Lymph % (Auto) [place] % (Auto) Eos % (Auto) Lymph # (Auto) [place] # (Auto) Eos # (Auto) Baso # (Auto) Seg Neutrophils % Seg Neuts % (Manual) Lymphocytes % (Manual) Seg Neutrophils # Seg Neutrophils # Man Lymphocytes # (Manual) D-Dimer ABG pH POC ABG pCO2 POC ABG pO2 ABG pO2 ABG HCO3 ABG O2 Saturation ABG Base Excess ABG Oxyhemoglobin ABG Sodium ABG Chloride ABG Glucose Oxyhemoglobin Carboxyhemoglobin Sodium Potassium Chloride Carbon Dioxide BUN Creatinine Glucose POC Glucose 241 H 162 H 171 H Hemoglobin A1c Magnesium Ferritin AST ALT Alkaline Phosphatase Lactate Dehydrogenase C-Reactive Protein Total Protein Albumin Arterial Blood Glucose Coronavirus (PCR) 05/21/21 05/21/21 05/22/21 16:22 20:43 05:14 WBC MCV MCH MCHC RDW Lymph % (Auto) [place] % (Auto) Eos % (Auto) Lymph # (Auto) [place] # (Auto) Eos # (Auto) Baso # (Auto) Seg Neutrophils % Seg Neuts % (Manual) Lymphocytes % (Manual) Seg Neutrophils # Seg Neutrophils # Man Lymphocytes # (Manual) D-Dimer ABG pH POC ABG pCO2 POC ABG pO2 ABG pO2 ABG HCO3 ABG O2 Saturation ABG Base Excess ABG Oxyhemoglobin ABG Sodium ABG Chloride ABG Glucose Oxyhemoglobin Carboxyhemoglobin Sodium Potassium Chloride Carbon Dioxide BUN Creatinine Glucose POC Glucose 244 H 299 H 140 H Hemoglobin A1c Magnesium Ferritin AST ALT Alkaline Phosphatase Lactate Dehydrogenase C-Reactive Protein Total Protein Albumin Arterial Blood Glucose Coronavirus (PCR) 05/22/21 05/22/21 05/22/21 08:45 11:54 16:15 WBC MCV MCH MCHC RDW Lymph % (Auto) [place] % (Auto) Eos % (Auto) Lymph # (Auto) [place] # (Auto) Eos # (Auto) Baso # (Auto) Seg Neutrophils % Seg Neuts % (Manual) Lymphocytes % (Manual) Seg Neutrophils # Seg Neutrophils # Man Lymphocytes # (Manual) D-Dimer ABG pH POC ABG pCO2 POC ABG pO2 ABG pO2 ABG HCO3 ABG O2 Saturation ABG Base Excess ABG Oxyhemoglobin ABG Sodium ABG Chloride ABG Glucose Oxyhemoglobin Carboxyhemoglobin Sodium Potassium Chloride Carbon Dioxide BUN Creatinine Glucose POC Glucose 133 H 265 H 221 H Hemoglobin A1c Magnesium Ferritin AST ALT Alkaline Phosphatase Lactate Dehydrogenase C-Reactive Protein Total Protein Albumin Arterial Blood Glucose Coronavirus (PCR) 05/22/21 05/23/21 05/23/21 21:43 08:20 09:50 WBC MCV MCH MCHC RDW Lymph % (Auto) [place] % (Auto) Eos % (Auto) Lymph # (Auto) [place] # (Auto) Eos # (Auto) Baso # (Auto) Seg Neutrophils % Seg Neuts % (Manual) Lymphocytes % (Manual) Seg Neutrophils # Seg Neutrophils # Man Lymphocytes # (Manual) D-Dimer 910.38 H ABG pH POC ABG pCO2 POC ABG pO2 ABG pO2 ABG HCO3 ABG O2 Saturation ABG Base Excess ABG Oxyhemoglobin ABG Sodium ABG Chloride ABG Glucose Oxyhemoglobin Carboxyhemoglobin Sodium Potassium Chloride Carbon Dioxide BUN Creatinine Glucose POC Glucose 262 H 140 H Hemoglobin A1c Magnesium Ferritin AST ALT Alkaline Phosphatase Lactate Dehydrogenase C-Reactive Protein Total Protein Albumin Arterial Blood Glucose Coronavirus (PCR) 05/23/21 05/23/21 05/23/21 09:50 09:50 10:52 WBC MCV MCH MCHC RDW Lymph % (Auto) [place] % (Auto) Eos % (Auto) Lymph # (Auto) [place] # (Auto) Eos # (Auto) Baso # (Auto) Seg Neutrophils % Seg Neuts % (Manual) Lymphocytes % (Manual) Seg Neutrophils # Seg Neutrophils # Man Lymphocytes # (Manual) D-Dimer ABG pH POC ABG pCO2 POC ABG pO2 ABG pO2 ABG HCO3 ABG O2 Saturation ABG Base Excess ABG Oxyhemoglobin ABG Sodium ABG Chloride ABG Glucose Oxyhemoglobin Carboxyhemoglobin Sodium Potassium Chloride Carbon Dioxide BUN Creatinine Glucose POC Glucose 241 H Hemoglobin A1c Magnesium Ferritin 244.9 H AST ALT Alkaline Phosphatase Lactate Dehydrogenase 584 H C-Reactive Protein Total Protein Albumin Arterial Blood Glucose Coronavirus (PCR) 05/23/21 05/23/21 05/24/21 17:24 21:52 07:44 WBC MCV MCH MCHC RDW Lymph % (Auto) [place] % (Auto) Eos % (Auto) Lymph # (Auto) [place] # (Auto) Eos # (Auto) Baso # (Auto) Seg Neutrophils % Seg Neuts % (Manual) Lymphocytes % (Manual) Seg Neutrophils # Seg Neutrophils # Man Lymphocytes # (Manual) D-Dimer ABG pH POC ABG pCO2 POC ABG pO2 ABG pO2 ABG HCO3 ABG O2 Saturation ABG Base Excess ABG Oxyhemoglobin ABG Sodium ABG Chloride ABG Glucose Oxyhemoglobin Carboxyhemoglobin Sodium Potassium Chloride Carbon Dioxide BUN Creatinine Glucose POC Glucose 197 H 289 H 161 H Hemoglobin A1c Magnesium Ferritin AST ALT Alkaline Phosphatase Lactate Dehydrogenase C-Reactive Protein Total Protein Albumin Arterial Blood Glucose Coronavirus (PCR) 05/24/21 05/24/21 05/24/21 11:17 17:51 21:26 WBC MCV MCH MCHC RDW Lymph % (Auto) [place] % (Auto) Eos % (Auto) Lymph # (Auto) [place] # (Auto) Eos # (Auto) Baso # (Auto) Seg Neutrophils % Seg Neuts % (Manual) Lymphocytes % (Manual) Seg Neutrophils # Seg Neutrophils # Man Lymphocytes # (Manual) D-Dimer ABG pH POC ABG pCO2 POC ABG pO2 ABG pO2 ABG HCO3 ABG O2 Saturation ABG Base Excess ABG Oxyhemoglobin ABG Sodium ABG Chloride ABG Glucose Oxyhemoglobin Carboxyhemoglobin Sodium Potassium Chloride Carbon Dioxide BUN Creatinine Glucose POC Glucose 308 H 175 H 198 H Hemoglobin A1c Magnesium Ferritin AST ALT Alkaline Phosphatase Lactate Dehydrogenase C-Reactive Protein Total Protein Albumin Arterial Blood Glucose Coronavirus (PCR) 05/25/21 05/25/21 05/25/21 08:14 11:13 17:13 WBC MCV MCH MCHC RDW Lymph % (Auto) [place] % (Auto) Eos % (Auto) Lymph # (Auto) [place] # (Auto) Eos # (Auto) Baso # (Auto) Seg Neutrophils % Seg Neuts % (Manual) Lymphocytes % (Manual) Seg Neutrophils # Seg Neutrophils # Man Lymphocytes # (Manual) D-Dimer ABG pH POC ABG pCO2 POC ABG pO2 ABG pO2 ABG HCO3 ABG O2 Saturation ABG Base Excess ABG Oxyhemoglobin ABG Sodium ABG Chloride ABG Glucose Oxyhemoglobin Carboxyhemoglobin Sodium Potassium Chloride Carbon Dioxide BUN Creatinine Glucose POC Glucose 203 H 339 H 235 H Hemoglobin A1c Magnesium Ferritin AST ALT Alkaline Phosphatase Lactate Dehydrogenase C-Reactive Protein Total Protein Albumin Arterial Blood Glucose Coronavirus (PCR) 05/25/21 05/26/21 05/26/21 21:03 07:33 11:19 WBC MCV MCH MCHC RDW Lymph % (Auto) [place] % (Auto) Eos % (Auto) Lymph # (Auto) [place] # (Auto) Eos # (Auto) Baso # (Auto) Seg Neutrophils % Seg Neuts % (Manual) Lymphocytes % (Manual) Seg Neutrophils # Seg Neutrophils # Man Lymphocytes # (Manual) D-Dimer ABG pH POC ABG pCO2 POC ABG pO2 ABG pO2 ABG HCO3 ABG O2 Saturation ABG Base Excess ABG Oxyhemoglobin ABG Sodium ABG Chloride ABG Glucose Oxyhemoglobin Carboxyhemoglobin Sodium Potassium Chloride Carbon Dioxide BUN Creatinine Glucose POC Glucose 263 H 156 H 288 H Hemoglobin A1c Magnesium Ferritin AST ALT Alkaline Phosphatase Lactate Dehydrogenase C-Reactive Protein Total Protein Albumin Arterial Blood Glucose Coronavirus (PCR) 05/26/21 05/26/21 05/27/21 16:26 20:55 07:38 WBC MCV MCH MCHC RDW Lymph % (Auto) [place] % (Auto) Eos % (Auto) Lymph # (Auto) [place] # (Auto) Eos # (Auto) Baso # (Auto) Seg Neutrophils % Seg Neuts % (Manual) Lymphocytes % (Manual) Seg Neutrophils # Seg Neutrophils # Man Lymphocytes # (Manual) D-Dimer ABG pH POC ABG pCO2 POC ABG pO2 ABG pO2 ABG HCO3 ABG O2 Saturation ABG Base Excess ABG Oxyhemoglobin ABG Sodium ABG Chloride ABG Glucose Oxyhemoglobin Carboxyhemoglobin Sodium Potassium Chloride Carbon Dioxide BUN Creatinine Glucose POC Glucose 286 H 293 H 115 H Hemoglobin A1c Magnesium Ferritin AST ALT Alkaline Phosphatase Lactate Dehydrogenase C-Reactive Protein Total Protein Albumin Arterial Blood Glucose Coronavirus (PCR) 05/27/21 05/27/21 05/27/21 11:46 15:58 21:02 WBC MCV MCH MCHC RDW Lymph % (Auto) [place] % (Auto) Eos % (Auto) Lymph # (Auto) [place] # (Auto) Eos # (Auto) Baso # (Auto) Seg Neutrophils % Seg Neuts % (Manual) Lymphocytes % (Manual) Seg Neutrophils # Seg Neutrophils # Man Lymphocytes # (Manual) D-Dimer ABG pH POC ABG pCO2 POC ABG pO2 ABG pO2 ABG HCO3 ABG O2 Saturation ABG Base Excess ABG Oxyhemoglobin ABG Sodium ABG Chloride ABG Glucose Oxyhemoglobin Carboxyhemoglobin Sodium Potassium Chloride Carbon Dioxide BUN Creatinine Glucose POC Glucose 260 H 318 H 246 H Hemoglobin A1c Magnesium Ferritin AST ALT Alkaline Phosphatase Lactate Dehydrogenase C-Reactive Protein Total Protein Albumin Arterial Blood Glucose Coronavirus (PCR) 05/28/21 05/28/21 05/28/21 07:34 11:31 16:36 WBC MCV MCH MCHC RDW Lymph % (Auto) [place] % (Auto) Eos % (Auto) Lymph # (Auto) [place] # (Auto) Eos # (Auto) Baso # (Auto) Seg Neutrophils % Seg Neuts % (Manual) Lymphocytes % (Manual) Seg Neutrophils # Seg Neutrophils # Man Lymphocytes # (Manual) D-Dimer ABG pH POC ABG pCO2 POC ABG pO2 ABG pO2 ABG HCO3 ABG O2 Saturation ABG Base Excess ABG Oxyhemoglobin ABG Sodium ABG Chloride ABG Glucose Oxyhemoglobin Carboxyhemoglobin Sodium Potassium Chloride Carbon Dioxide BUN Creatinine Glucose POC Glucose 185 H 297 H 183 H Hemoglobin A1c Magnesium Ferritin AST ALT Alkaline Phosphatase Lactate Dehydrogenase C-Reactive Protein Total Protein Albumin Arterial Blood Glucose Coronavirus (PCR) 05/28/21 05/29/21 05/29/21 21:19 07:34 11:19 WBC MCV MCH MCHC RDW Lymph % (Auto) [place] % (Auto) Eos % (Auto) Lymph # (Auto) [place] # (Auto) Eos # (Auto) Baso # (Auto) Seg Neutrophils % Seg Neuts % (Manual) Lymphocytes % (Manual) Seg Neutrophils # Seg Neutrophils # Man Lymphocytes # (Manual) D-Dimer ABG pH POC ABG pCO2 POC ABG pO2 ABG pO2 ABG HCO3 ABG O2 Saturation ABG Base Excess ABG Oxyhemoglobin ABG Sodium ABG Chloride ABG Glucose Oxyhemoglobin Carboxyhemoglobin Sodium Potassium Chloride Carbon Dioxide BUN Creatinine Glucose POC Glucose 274 H 139 H 293 H Hemoglobin A1c Magnesium Ferritin AST ALT Alkaline Phosphatase Lactate Dehydrogenase C-Reactive Protein Total Protein Albumin Arterial Blood Glucose Coronavirus (PCR) 05/29/21 05/29/21 05/30/21 16:36 22:44 05:55 WBC MCV MCH MCHC RDW 21.3 H Lymph % (Auto) 8.0 L [place] % (Auto) Eos % (Auto) Lymph # (Auto) 0.6 L [place] # (Auto) Eos # (Auto) Baso # (Auto) Seg Neutrophils % 88.6 H Seg Neuts % (Manual) Lymphocytes % (Manual) Seg Neutrophils # Seg Neutrophils # Man Lymphocytes # (Manual) D-Dimer ABG pH POC ABG pCO2 POC ABG pO2 ABG pO2 ABG HCO3 ABG O2 Saturation ABG Base Excess ABG Oxyhemoglobin ABG Sodium ABG Chloride ABG Glucose Oxyhemoglobin Carboxyhemoglobin Sodium Potassium Chloride Carbon Dioxide BUN Creatinine Glucose POC Glucose 299 H 160 H Hemoglobin A1c Magnesium Ferritin AST ALT Alkaline Phosphatase Lactate Dehydrogenase C-Reactive Protein Total Protein Albumin Arterial Blood Glucose Coronavirus (PCR) 05/30/21 05/30/21 05/30/21 05:55 08:04 11:13 WBC MCV MCH MCHC RDW Lymph % (Auto) [place] % (Auto) Eos % (Auto) Lymph # (Auto) [place] # (Auto) Eos # (Auto) Baso # (Auto) Seg Neutrophils % Seg Neuts % (Manual) Lymphocytes % (Manual) Seg Neutrophils # Seg Neutrophils # Man Lymphocytes # (Manual) D-Dimer ABG pH POC ABG pCO2 POC ABG pO2 ABG pO2 ABG HCO3 ABG O2 Saturation ABG Base Excess ABG Oxyhemoglobin ABG Sodium ABG Chloride ABG Glucose Oxyhemoglobin Carboxyhemoglobin Sodium Potassium Chloride Carbon Dioxide BUN 19 H Creatinine 0.2 L Glucose 209 H POC Glucose 157 H 275 H Hemoglobin A1c Magnesium Ferritin AST ALT Alkaline Phosphatase Lactate Dehydrogenase C-Reactive Protein Total Protein Albumin Arterial Blood Glucose Coronavirus (PCR) 05/30/21 05/30/21 05/31/21 17:08 22:12 07:36 WBC MCV MCH MCHC RDW Lymph % (Auto) [place] % (Auto) Eos % (Auto) Lymph # (Auto) [place] # (Auto) Eos # (Auto) Baso # (Auto) Seg Neutrophils % Seg Neuts % (Manual) Lymphocytes % (Manual) Seg Neutrophils # Seg Neutrophils # Man Lymphocytes # (Manual) D-Dimer ABG pH POC ABG pCO2 POC ABG pO2 ABG pO2 ABG HCO3 ABG O2 Saturation ABG Base Excess ABG Oxyhemoglobin ABG Sodium ABG Chloride ABG Glucose Oxyhemoglobin Carboxyhemoglobin Sodium Potassium Chloride Carbon Dioxide BUN Creatinine Glucose POC Glucose 154 H 275 H 138 H Hemoglobin A1c Magnesium Ferritin AST ALT Alkaline Phosphatase Lactate Dehydrogenase C-Reactive Protein Total Protein Albumin Arterial Blood Glucose Coronavirus (PCR) 05/31/21 05/31/21 05/31/21 11:17 16:55 21:25 WBC MCV MCH MCHC RDW Lymph % (Auto) [place] % (Auto) Eos % (Auto) Lymph # (Auto) [place] # (Auto) Eos # (Auto) Baso # (Auto) Seg Neutrophils % Seg Neuts % (Manual) Lymphocytes % (Manual) Seg Neutrophils # Seg Neutrophils # Man Lymphocytes # (Manual) D-Dimer ABG pH POC ABG pCO2 POC ABG pO2 ABG pO2 ABG HCO3 ABG O2 Saturation ABG Base Excess ABG Oxyhemoglobin ABG Sodium ABG Chloride ABG Glucose Oxyhemoglobin Carboxyhemoglobin Sodium Potassium Chloride Carbon Dioxide BUN Creatinine Glucose POC Glucose 258 H 215 H 318 H Hemoglobin A1c Magnesium Ferritin AST ALT Alkaline Phosphatase Lactate Dehydrogenase C-Reactive Protein Total Protein Albumin Arterial Blood Glucose Coronavirus (PCR) 06/01/21 06/01/21 06/01/21 07:23 11:38 16:52 WBC MCV MCH MCHC RDW Lymph % (Auto) [place] % (Auto) Eos % (Auto) Lymph # (Auto) [place] # (Auto) Eos # (Auto) Baso # (Auto) Seg Neutrophils % Seg Neuts % (Manual) Lymphocytes % (Manual) Seg Neutrophils # Seg Neutrophils # Man Lymphocytes # (Manual) D-Dimer ABG pH POC ABG pCO2 POC ABG pO2 ABG pO2 ABG HCO3 ABG O2 Saturation ABG Base Excess ABG Oxyhemoglobin ABG Sodium ABG Chloride ABG Glucose Oxyhemoglobin Carboxyhemoglobin Sodium Potassium Chloride Carbon Dioxide BUN Creatinine Glucose POC Glucose 157 H 259 H 150 H Hemoglobin A1c Magnesium Ferritin AST ALT Alkaline Phosphatase Lactate Dehydrogenase C-Reactive Protein Total Protein Albumin Arterial Blood Glucose Coronavirus (PCR) 06/01/21 06/02/21 06/02/21 23:16 05:34 05:34 WBC MCV MCH MCHC RDW 21.3 H Lymph % (Auto) 9.6 L [place] % (Auto) Eos % (Auto) Lymph # (Auto) 0.6 L [place] # (Auto) Eos # (Auto) Baso # (Auto) Seg Neutrophils % 86.2 H Seg Neuts % (Manual) Lymphocytes % (Manual) Seg Neutrophils # Seg Neutrophils # Man Lymphocytes # (Manual) D-Dimer ABG pH POC ABG pCO2 POC ABG pO2 ABG pO2 ABG HCO3 ABG O2 Saturation ABG Base Excess ABG Oxyhemoglobin ABG Sodium ABG Chloride ABG Glucose Oxyhemoglobin Carboxyhemoglobin Sodium 136 L Potassium Chloride Carbon Dioxide BUN Creatinine 0.2 L Glucose 186 H POC Glucose 247 H Hemoglobin A1c Magnesium Ferritin AST ALT 69 H Alkaline Phosphatase Lactate Dehydrogenase C-Reactive Protein Total Protein 6.1 L Albumin 3.2 L Arterial Blood Glucose Coronavirus (PCR) 06/02/21 06/02/21 06/02/21 11:25 18:23 21:32 WBC MCV MCH MCHC RDW Lymph % (Auto) [place] % (Auto) Eos % (Auto) Lymph # (Auto) [place] # (Auto) Eos # (Auto) Baso # (Auto) Seg Neutrophils % Seg Neuts % (Manual) Lymphocytes % (Manual) Seg Neutrophils # Seg Neutrophils # Man Lymphocytes # (Manual) D-Dimer ABG pH POC ABG pCO2 POC ABG pO2 ABG pO2 ABG HCO3 ABG O2 Saturation ABG Base Excess ABG Oxyhemoglobin ABG Sodium ABG Chloride ABG Glucose Oxyhemoglobin Carboxyhemoglobin Sodium Potassium Chloride Carbon Dioxide BUN Creatinine Glucose POC Glucose 157 H 299 H 246 H Hemoglobin A1c Magnesium Ferritin AST ALT Alkaline Phosphatase Lactate Dehydrogenase C-Reactive Protein Total Protein Albumin Arterial Blood Glucose Coronavirus (PCR) 06/03/21 06/03/21 06/03/21 08:12 12:21 17:31 WBC MCV MCH MCHC RDW Lymph % (Auto) [place] % (Auto) Eos % (Auto) Lymph # (Auto) [place] # (Auto) Eos # (Auto) Baso # (Auto) Seg Neutrophils % Seg Neuts % (Manual) Lymphocytes % (Manual) Seg Neutrophils # Seg Neutrophils # Man Lymphocytes # (Manual) D-Dimer ABG pH POC ABG pCO2 POC ABG pO2 ABG pO2 ABG HCO3 ABG O2 Saturation ABG Base Excess ABG Oxyhemoglobin ABG Sodium ABG Chloride ABG Glucose Oxyhemoglobin Carboxyhemoglobin Sodium Potassium Chloride Carbon Dioxide BUN Creatinine Glucose POC Glucose 153 H 302 H 252 H Hemoglobin A1c Magnesium Ferritin AST ALT Alkaline Phosphatase Lactate Dehydrogenase C-Reactive Protein Total Protein Albumin Arterial Blood Glucose Coronavirus (PCR) 06/03/21 06/04/21 06/04/21 22:08 11:12 16:01 WBC MCV MCH MCHC RDW Lymph % (Auto) [place] % (Auto) Eos % (Auto) Lymph # (Auto) [place] # (Auto) Eos # (Auto) Baso # (Auto) Seg Neutrophils % Seg Neuts % (Manual) Lymphocytes % (Manual) Seg Neutrophils # Seg Neutrophils # Man Lymphocytes # (Manual) D-Dimer ABG pH POC ABG pCO2 POC ABG pO2 ABG pO2 ABG HCO3 ABG O2 Saturation ABG Base Excess ABG Oxyhemoglobin ABG Sodium ABG Chloride ABG Glucose Oxyhemoglobin Carboxyhemoglobin Sodium Potassium Chloride Carbon Dioxide BUN Creatinine Glucose POC Glucose 224 H 259 H 238 H Hemoglobin A1c Magnesium Ferritin AST ALT Alkaline Phosphatase Lactate Dehydrogenase C-Reactive Protein Total Protein Albumin Arterial Blood Glucose Coronavirus (PCR) 06/04/21 06/05/21 06/05/21 21:26 05:26 05:26 WBC MCV MCH MCHC RDW Lymph % (Auto) [place] % (Auto) Eos % (Auto) Lymph # (Auto) [place] # (Auto) Eos # (Auto) Baso # (Auto) Seg Neutrophils % Seg Neuts % (Manual) Lymphocytes % (Manual) Seg Neutrophils # Seg Neutrophils # Man Lymphocytes # (Manual) D-Dimer 488.49 H ABG pH POC ABG pCO2 POC ABG pO2 ABG pO2 ABG HCO3 ABG O2 Saturation ABG Base Excess ABG Oxyhemoglobin ABG Sodium ABG Chloride ABG Glucose Oxyhemoglobin Carboxyhemoglobin Sodium Potassium Chloride Carbon Dioxide BUN Creatinine 0.2 L Glucose 198 H POC Glucose 257 H Hemoglobin A1c Magnesium Ferritin AST ALT Alkaline Phosphatase Lactate Dehydrogenase 475 H C-Reactive Protein Total Protein Albumin Arterial Blood Glucose Coronavirus (PCR) 06/05/21 06/05/21 06/05/21 07:20 08:30 11:00 WBC MCV MCH MCHC RDW Lymph % (Auto) [place] % (Auto) Eos % (Auto) Lymph # (Auto) [place] # (Auto) Eos # (Auto) Baso # (Auto) Seg Neutrophils % Seg Neuts % (Manual) Lymphocytes % (Manual) Seg Neutrophils # Seg Neutrophils # Man Lymphocytes # (Manual) D-Dimer ABG pH POC ABG pCO2 POC ABG pO2 ABG pO2 ABG HCO3 ABG O2 Saturation ABG Base Excess ABG Oxyhemoglobin ABG Sodium ABG Chloride ABG Glucose Oxyhemoglobin Carboxyhemoglobin Sodium Potassium Chloride Carbon Dioxide BUN Creatinine Glucose POC Glucose 146 H 246 H Hemoglobin A1c Magnesium Ferritin AST ALT Alkaline Phosphatase Lactate Dehydrogenase C-Reactive Protein Total Protein Albumin Arterial Blood Glucose Coronavirus (PCR) Positive A 06/05/21 06/05/21 06/06/21 16:50 22:30 07:57 WBC MCV MCH MCHC RDW Lymph % (Auto) [place] % (Auto) Eos % (Auto) Lymph # (Auto) [place] # (Auto) Eos # (Auto) Baso # (Auto) Seg Neutrophils % Seg Neuts % (Manual) Lymphocytes % (Manual) Seg Neutrophils # Seg Neutrophils # Man Lymphocytes # (Manual) D-Dimer ABG pH POC ABG pCO2 POC ABG pO2 ABG pO2 ABG HCO3 ABG O2 Saturation ABG Base Excess ABG Oxyhemoglobin ABG Sodium ABG Chloride ABG Glucose Oxyhemoglobin Carboxyhemoglobin Sodium Potassium Chloride Carbon Dioxide BUN Creatinine Glucose POC Glucose 240 H 174 H 120 H Hemoglobin A1c Magnesium Ferritin AST ALT Alkaline Phosphatase Lactate Dehydrogenase C-Reactive Protein Total Protein Albumin Arterial Blood Glucose Coronavirus (PCR) 06/06/21 06/06/21 06/06/21 11:14 16:50 21:11 WBC MCV MCH MCHC RDW Lymph % (Auto) [place] % (Auto) Eos % (Auto) Lymph # (Auto) [place] # (Auto) Eos # (Auto) Baso # (Auto) Seg Neutrophils % Seg Neuts % (Manual) Lymphocytes % (Manual) Seg Neutrophils # Seg Neutrophils # Man Lymphocytes # (Manual) D-Dimer ABG pH POC ABG pCO2 POC ABG pO2 ABG pO2 ABG HCO3 ABG O2 Saturation ABG Base Excess ABG Oxyhemoglobin ABG Sodium ABG Chloride ABG Glucose Oxyhemoglobin Carboxyhemoglobin Sodium Potassium Chloride Carbon Dioxide BUN Creatinine Glucose POC Glucose 267 H 218 H 124 H Hemoglobin A1c Magnesium Ferritin AST ALT Alkaline Phosphatase Lactate Dehydrogenase C-Reactive Protein Total Protein Albumin Arterial Blood Glucose Coronavirus (PCR) 06/07/21 06/07/21 06/08/21 11:58 15:59 07:59 WBC MCV MCH MCHC RDW Lymph % (Auto) [place] % (Auto) Eos % (Auto) Lymph # (Auto) [place] # (Auto) Eos # (Auto) Baso # (Auto) Seg Neutrophils % Seg Neuts % (Manual) Lymphocytes % (Manual) Seg Neutrophils # Seg Neutrophils # Man Lymphocytes # (Manual) D-Dimer ABG pH POC ABG pCO2 POC ABG pO2 ABG pO2 ABG HCO3 ABG O2 Saturation ABG Base Excess ABG Oxyhemoglobin ABG Sodium ABG Chloride ABG Glucose Oxyhemoglobin Carboxyhemoglobin Sodium Potassium Chloride Carbon Dioxide BUN Creatinine Glucose POC Glucose 219 H 208 H 192 H Hemoglobin A1c Magnesium Ferritin AST ALT Alkaline Phosphatase Lactate Dehydrogenase C-Reactive Protein Total Protein Albumin Arterial Blood Glucose Coronavirus (PCR) 06/08/21 06/08/21 06/09/21 11:26 23:28 07:33 WBC MCV MCH MCHC RDW Lymph % (Auto) [place] % (Auto) Eos % (Auto) Lymph # (Auto) [place] # (Auto) Eos # (Auto) Baso # (Auto) Seg Neutrophils % Seg Neuts % (Manual) Lymphocytes % (Manual) Seg Neutrophils # Seg Neutrophils # Man Lymphocytes # (Manual) D-Dimer ABG pH POC ABG pCO2 POC ABG pO2 ABG pO2 ABG HCO3 ABG O2 Saturation ABG Base Excess ABG Oxyhemoglobin ABG Sodium ABG Chloride ABG Glucose Oxyhemoglobin Carboxyhemoglobin Sodium Potassium Chloride Carbon Dioxide BUN Creatinine Glucose POC Glucose 307 H 138 H 145 H Hemoglobin A1c Magnesium Ferritin AST ALT Alkaline Phosphatase Lactate Dehydrogenase C-Reactive Protein Total Protein Albumin Arterial Blood Glucose Coronavirus (PCR) 06/09/21 06/09/21 06/09/21 11:01 15:47 21:43 WBC MCV MCH MCHC RDW Lymph % (Auto) [place] % (Auto) Eos % (Auto) Lymph # (Auto) [place] # (Auto) Eos # (Auto) Baso # (Auto) Seg Neutrophils % Seg Neuts % (Manual) Lymphocytes % (Manual) Seg Neutrophils # Seg Neutrophils # Man Lymphocytes # (Manual) D-Dimer ABG pH POC ABG pCO2 POC ABG pO2 ABG pO2 ABG HCO3 ABG O2 Saturation ABG Base Excess ABG Oxyhemoglobin ABG Sodium ABG Chloride ABG Glucose Oxyhemoglobin Carboxyhemoglobin Sodium Potassium Chloride Carbon Dioxide BUN Creatinine Glucose POC Glucose 266 H 305 H 223 H Hemoglobin A1c Magnesium Ferritin AST ALT Alkaline Phosphatase Lactate Dehydrogenase C-Reactive Protein Total Protein Albumin Arterial Blood Glucose Coronavirus (PCR) 06/10/21 06/10/21 06/10/21 08:27 12:10 17:45 WBC MCV MCH MCHC RDW Lymph % (Auto) [place] % (Auto) Eos % (Auto) Lymph # (Auto) [place] # (Auto) Eos # (Auto) Baso # (Auto) Seg Neutrophils % Seg Neuts % (Manual) Lymphocytes % (Manual) Seg Neutrophils # Seg Neutrophils # Man Lymphocytes # (Manual) D-Dimer ABG pH POC ABG pCO2 POC ABG pO2 ABG pO2 ABG HCO3 ABG O2 Saturation ABG Base Excess ABG Oxyhemoglobin ABG Sodium ABG Chloride ABG Glucose Oxyhemoglobin Carboxyhemoglobin Sodium Potassium Chloride Carbon Dioxide BUN Creatinine Glucose POC Glucose 174 H 306 H 210 H Hemoglobin A1c Magnesium Ferritin AST ALT Alkaline Phosphatase Lactate Dehydrogenase C-Reactive Protein Total Protein Albumin Arterial Blood Glucose Coronavirus (PCR) 06/10/21 06/11/21 06/11/21 21:45 09:38 09:38 WBC MCV MCH MCHC RDW 20.9 H Lymph % (Auto) [place] % (Auto) Eos % (Auto) Lymph # (Auto) [place] # (Auto) Eos # (Auto) Baso # (Auto) Seg Neutrophils % Seg Neuts % (Manual) Lymphocytes % (Manual) Seg Neutrophils # Seg Neutrophils # Man Lymphocytes # (Manual) D-Dimer ABG pH POC ABG pCO2 POC ABG pO2 ABG pO2 ABG HCO3 ABG O2 Saturation ABG Base Excess ABG Oxyhemoglobin ABG Sodium ABG Chloride ABG Glucose Oxyhemoglobin Carboxyhemoglobin Sodium 135 L Potassium Chloride 90.8 L Carbon Dioxide 36 H BUN 29 H Creatinine 0.2 L Glucose 258 H POC Glucose 262 H Hemoglobin A1c Magnesium Ferritin AST ALT Alkaline Phosphatase Lactate Dehydrogenase C-Reactive Protein Total Protein Albumin Arterial Blood Glucose Coronavirus (PCR) 06/11/21 06/11/21 06/11/21 11:20 15:49 22:57 WBC MCV MCH MCHC RDW Lymph % (Auto) [place] % (Auto) Eos % (Auto) Lymph # (Auto) [place] # (Auto) Eos # (Auto) Baso # (Auto) Seg Neutrophils % Seg Neuts % (Manual) Lymphocytes % (Manual) Seg Neutrophils # Seg Neutrophils # Man Lymphocytes # (Manual) D-Dimer ABG pH POC ABG pCO2 POC ABG pO2 ABG pO2 ABG HCO3 ABG O2 Saturation ABG Base Excess ABG Oxyhemoglobin ABG Sodium ABG Chloride ABG Glucose Oxyhemoglobin Carboxyhemoglobin Sodium Potassium Chloride Carbon Dioxide BUN Creatinine Glucose POC Glucose 269 H 206 H 211 H Hemoglobin A1c Magnesium Ferritin AST ALT Alkaline Phosphatase Lactate Dehydrogenase C-Reactive Protein Total Protein Albumin Arterial Blood Glucose Coronavirus (PCR) 06/12/21 06/12/21 06/12/21 08:07 11:24 18:08 WBC MCV MCH MCHC RDW Lymph % (Auto) [place] % (Auto) Eos % (Auto) Lymph # (Auto) [place] # (Auto) Eos # (Auto) Baso # (Auto) Seg Neutrophils % Seg Neuts % (Manual) Lymphocytes % (Manual) Seg Neutrophils # Seg Neutrophils # Man Lymphocytes # (Manual) D-Dimer ABG pH POC ABG pCO2 POC ABG pO2 ABG pO2 ABG HCO3 ABG O2 Saturation ABG Base Excess ABG Oxyhemoglobin ABG Sodium ABG Chloride ABG Glucose Oxyhemoglobin Carboxyhemoglobin Sodium Potassium Chloride Carbon Dioxide BUN Creatinine Glucose POC Glucose 149 H 270 H 166 H Hemoglobin A1c Magnesium Ferritin AST ALT Alkaline Phosphatase Lactate Dehydrogenase C-Reactive Protein Total Protein Albumin Arterial Blood Glucose Coronavirus (PCR) 06/12/21 06/13/21 06/13/21 20:22 07:50 11:18 WBC MCV MCH MCHC RDW Lymph % (Auto) [place] % (Auto) Eos % (Auto) Lymph # (Auto) [place] # (Auto) Eos # (Auto) Baso # (Auto) Seg Neutrophils % Seg Neuts % (Manual) Lymphocytes % (Manual) Seg Neutrophils # Seg Neutrophils # Man Lymphocytes # (Manual) D-Dimer ABG pH POC ABG pCO2 POC ABG pO2 ABG pO2 ABG HCO3 ABG O2 Saturation ABG Base Excess ABG Oxyhemoglobin ABG Sodium ABG Chloride ABG Glucose Oxyhemoglobin Carboxyhemoglobin Sodium Potassium Chloride Carbon Dioxide BUN Creatinine Glucose POC Glucose 155 H 163 H 293 H Hemoglobin A1c Magnesium Ferritin AST ALT Alkaline Phosphatase Lactate Dehydrogenase C-Reactive Protein Total Protein Albumin Arterial Blood Glucose Coronavirus (PCR) 06/13/21 06/13/21 06/14/21 16:41 21:00 07:41 WBC MCV MCH MCHC RDW Lymph % (Auto) [place] % (Auto) Eos % (Auto) Lymph # (Auto) [place] # (Auto) Eos # (Auto) Baso # (Auto) Seg Neutrophils % Seg Neuts % (Manual) Lymphocytes % (Manual) Seg Neutrophils # Seg Neutrophils # Man Lymphocytes # (Manual) D-Dimer ABG pH POC ABG pCO2 POC ABG pO2 ABG pO2 ABG HCO3 ABG O2 Saturation ABG Base Excess ABG Oxyhemoglobin ABG Sodium ABG Chloride ABG Glucose Oxyhemoglobin Carboxyhemoglobin Sodium Potassium Chloride Carbon Dioxide BUN Creatinine Glucose POC Glucose 232 H 183 H 52 L Hemoglobin A1c Magnesium Ferritin AST ALT Alkaline Phosphatase Lactate Dehydrogenase C-Reactive Protein Total Protein Albumin Arterial Blood Glucose Coronavirus (PCR) 06/14/21 06/14/21 06/14/21 11:44 17:44 21:44 WBC MCV MCH MCHC RDW Lymph % (Auto) [place] % (Auto) Eos % (Auto) Lymph # (Auto) [place] # (Auto) Eos # (Auto) Baso # (Auto) Seg Neutrophils % Seg Neuts % (Manual) Lymphocytes % (Manual) Seg Neutrophils # Seg Neutrophils # Man Lymphocytes # (Manual) D-Dimer ABG pH POC ABG pCO2 POC ABG pO2 ABG pO2 ABG HCO3 ABG O2 Saturation ABG Base Excess ABG Oxyhemoglobin ABG Sodium ABG Chloride ABG Glucose Oxyhemoglobin Carboxyhemoglobin Sodium Potassium Chloride Carbon Dioxide BUN Creatinine Glucose POC Glucose 205 H 293 H 288 H Hemoglobin A1c Magnesium Ferritin AST ALT Alkaline Phosphatase Lactate Dehydrogenase C-Reactive Protein Total Protein Albumin Arterial Blood Glucose Coronavirus (PCR) 06/15/21 06/15/21 06/15/21 08:00 08:00 11:40 WBC MCV MCH 33 H MCHC 35 H RDW 20.3 H Lymph % (Auto) [place] % (Auto) Eos % (Auto) Lymph # (Auto) [place] # (Auto) Eos # (Auto) Baso # (Auto) Seg Neutrophils % Seg Neuts % (Manual) Lymphocytes % (Manual) Seg Neutrophils # Seg Neutrophils # Man Lymphocytes # (Manual) D-Dimer ABG pH POC ABG pCO2 POC ABG pO2 ABG pO2 ABG HCO3 ABG O2 Saturation ABG Base Excess ABG Oxyhemoglobin ABG Sodium ABG Chloride ABG Glucose Oxyhemoglobin Carboxyhemoglobin Sodium Potassium 3.2 L Chloride 95.3 L Carbon Dioxide 32 H BUN 23 H Creatinine 0.2 L Glucose 103 H POC Glucose 204 H Hemoglobin A1c Magnesium Ferritin AST ALT Alkaline Phosphatase Lactate Dehydrogenase C-Reactive Protein Total Protein Albumin Arterial Blood Glucose Coronavirus (PCR) 06/15/21 06/15/21 06/16/21 16:17 22:00 11:43 WBC MCV MCH MCHC RDW Lymph % (Auto) [place] % (Auto) Eos % (Auto) Lymph # (Auto) [place] # (Auto) Eos # (Auto) Baso # (Auto) Seg Neutrophils % Seg Neuts % (Manual) Lymphocytes % (Manual) Seg Neutrophils # Seg Neutrophils # Man Lymphocytes # (Manual) D-Dimer ABG pH POC ABG pCO2 POC ABG pO2 ABG pO2 ABG HCO3 ABG O2 Saturation ABG Base Excess ABG Oxyhemoglobin ABG Sodium ABG Chloride ABG Glucose Oxyhemoglobin Carboxyhemoglobin Sodium Potassium Chloride Carbon Dioxide BUN Creatinine Glucose POC Glucose 295 H 233 H 201 H Hemoglobin A1c Magnesium Ferritin AST ALT Alkaline Phosphatase Lactate Dehydrogenase C-Reactive Protein Total Protein Albumin Arterial Blood Glucose Coronavirus (PCR) 06/16/21 06/16/21 06/17/21 17:21 21:27 07:12 WBC MCV MCH MCHC RDW Lymph % (Auto) [place] % (Auto) Eos % (Auto) Lymph # (Auto) [place] # (Auto) Eos # (Auto) Baso # (Auto) Seg Neutrophils % Seg Neuts % (Manual) Lymphocytes % (Manual) Seg Neutrophils # Seg Neutrophils # Man Lymphocytes # (Manual) D-Dimer ABG pH POC ABG pCO2 POC ABG pO2 ABG pO2 ABG HCO3 ABG O2 Saturation ABG Base Excess ABG Oxyhemoglobin ABG Sodium ABG Chloride ABG Glucose Oxyhemoglobin Carboxyhemoglobin Sodium Potassium Chloride Carbon Dioxide BUN Creatinine Glucose POC Glucose 299 H 290 H 67 L Hemoglobin A1c Magnesium Ferritin AST ALT Alkaline Phosphatase Lactate Dehydrogenase C-Reactive Protein Total Protein Albumin Arterial Blood Glucose Coronavirus (PCR) 06/17/21 06/17/21 06/17/21 11:53 17:02 22:25 WBC MCV MCH MCHC RDW Lymph % (Auto) [place] % (Auto) Eos % (Auto) Lymph # (Auto) [place] # (Auto) Eos # (Auto) Baso # (Auto) Seg Neutrophils % Seg Neuts % (Manual) Lymphocytes % (Manual) Seg Neutrophils # Seg Neutrophils # Man Lymphocytes # (Manual) D-Dimer ABG pH POC ABG pCO2 POC ABG pO2 ABG pO2 ABG HCO3 ABG O2 Saturation ABG Base Excess ABG Oxyhemoglobin ABG Sodium ABG Chloride ABG Glucose Oxyhemoglobin Carboxyhemoglobin Sodium Potassium Chloride Carbon Dioxide BUN Creatinine Glucose POC Glucose 199 H 362 H 235 H Hemoglobin A1c Magnesium Ferritin AST ALT Alkaline Phosphatase Lactate Dehydrogenase C-Reactive Protein Total Protein Albumin Arterial Blood Glucose Coronavirus (PCR) 06/18/21 06/18/21 06/18/21 08:00 11:48 16:40 WBC MCV MCH MCHC RDW Lymph % (Auto) [place] % (Auto) Eos % (Auto) Lymph # (Auto) [place] # (Auto) Eos # (Auto) Baso # (Auto) Seg Neutrophils % Seg Neuts % (Manual) Lymphocytes % (Manual) Seg Neutrophils # Seg Neutrophils # Man Lymphocytes # (Manual) D-Dimer ABG pH POC ABG pCO2 POC ABG pO2 ABG pO2 ABG HCO3 ABG O2 Saturation ABG Base Excess ABG Oxyhemoglobin ABG Sodium ABG Chloride ABG Glucose Oxyhemoglobin Carboxyhemoglobin Sodium Potassium Chloride Carbon Dioxide BUN Creatinine Glucose POC Glucose 62 L 211 H 305 H Hemoglobin A1c Magnesium Ferritin AST ALT Alkaline Phosphatase Lactate Dehydrogenase C-Reactive Protein Total Protein Albumin Arterial Blood Glucose Coronavirus (PCR) 06/18/21 06/19/21 06/19/21 21:26 07:27 11:32 WBC MCV MCH MCHC RDW Lymph % (Auto) [place] % (Auto) Eos % (Auto) Lymph # (Auto) [place] # (Auto) Eos # (Auto) Baso # (Auto) Seg Neutrophils % Seg Neuts % (Manual) Lymphocytes % (Manual) Seg Neutrophils # Seg Neutrophils # Man Lymphocytes # (Manual) D-Dimer ABG pH POC ABG pCO2 POC ABG pO2 ABG pO2 ABG HCO3 ABG O2 Saturation ABG Base Excess ABG Oxyhemoglobin ABG Sodium ABG Chloride ABG Glucose Oxyhemoglobin Carboxyhemoglobin Sodium Potassium Chloride Carbon Dioxide BUN Creatinine Glucose POC Glucose 149 H 60 L 208 H Hemoglobin A1c Magnesium Ferritin AST ALT Alkaline Phosphatase Lactate Dehydrogenase C-Reactive Protein Total Protein Albumin Arterial Blood Glucose Coronavirus (PCR) 06/19/21 06/19/21 06/20/21 16:06 22:28 07:48 WBC MCV MCH MCHC RDW Lymph % (Auto) [place] % (Auto) Eos % (Auto) Lymph # (Auto) [place] # (Auto) Eos # (Auto) Baso # (Auto) Seg Neutrophils % Seg Neuts % (Manual) Lymphocytes % (Manual) Seg Neutrophils # Seg Neutrophils # Man Lymphocytes # (Manual) D-Dimer ABG pH POC ABG pCO2 POC ABG pO2 ABG pO2 ABG HCO3 ABG O2 Saturation ABG Base Excess ABG Oxyhemoglobin ABG Sodium ABG Chloride ABG Glucose Oxyhemoglobin Carboxyhemoglobin Sodium Potassium Chloride Carbon Dioxide BUN Creatinine Glucose POC Glucose 266 H 166 H 58 L Hemoglobin A1c Magnesium Ferritin AST ALT Alkaline Phosphatase Lactate Dehydrogenase C-Reactive Protein Total Protein Albumin Arterial Blood Glucose Coronavirus (PCR) 06/20/21 06/20/21 06/20/21 09:09 11:04 16:01 WBC MCV MCH MCHC RDW Lymph % (Auto) [place] % (Auto) Eos % (Auto) Lymph # (Auto) [place] # (Auto) Eos # (Auto) Baso # (Auto) Seg Neutrophils % Seg Neuts % (Manual) Lymphocytes % (Manual) Seg Neutrophils # Seg Neutrophils # Man Lymphocytes # (Manual) D-Dimer ABG pH POC ABG pCO2 POC ABG pO2 ABG pO2 ABG HCO3 ABG O2 Saturation ABG Base Excess ABG Oxyhemoglobin ABG Sodium ABG Chloride ABG Glucose Oxyhemoglobin Carboxyhemoglobin Sodium Potassium Chloride Carbon Dioxide BUN Creatinine Glucose POC Glucose 146 H 225 H 330 H Hemoglobin A1c Magnesium Ferritin AST ALT Alkaline Phosphatase Lactate Dehydrogenase C-Reactive Protein Total Protein Albumin Arterial Blood Glucose Coronavirus (PCR) 06/20/21 06/21/21 06/21/21 20:46 06:45 06:45 WBC MCV MCH MCHC RDW 20.0 H Lymph % (Auto) [place] % (Auto) Eos % (Auto) Lymph # (Auto) [place] # (Auto) Eos # (Auto) Baso # (Auto) Seg Neutrophils % Seg Neuts % (Manual) Lymphocytes % (Manual) Seg Neutrophils # Seg Neutrophils # Man Lymphocytes # (Manual) D-Dimer ABG pH POC ABG pCO2 POC ABG pO2 ABG pO2 ABG HCO3 ABG O2 Saturation ABG Base Excess ABG Oxyhemoglobin ABG Sodium ABG Chloride ABG Glucose Oxyhemoglobin Carboxyhemoglobin Sodium Potassium 2.9 L* Chloride 95.0 L Carbon Dioxide 31 H BUN 23 H Creatinine 0.2 L Glucose 45 L POC Glucose 215 H Hemoglobin A1c Magnesium Ferritin AST ALT Alkaline Phosphatase Lactate Dehydrogenase C-Reactive Protein Total Protein Albumin Arterial Blood Glucose Coronavirus (PCR) 06/21/21 06/21/21 06/21/21 07:38 09:06 12:40 WBC MCV MCH MCHC RDW Lymph % (Auto) [place] % (Auto) Eos % (Auto) Lymph # (Auto) [place] # (Auto) Eos # (Auto) Baso # (Auto) Seg Neutrophils % Seg Neuts % (Manual) Lymphocytes % (Manual) Seg Neutrophils # Seg Neutrophils # Man Lymphocytes # (Manual) D-Dimer ABG pH POC ABG pCO2 POC ABG pO2 ABG pO2 ABG HCO3 ABG O2 Saturation ABG Base Excess ABG Oxyhemoglobin ABG Sodium ABG Chloride ABG Glucose Oxyhemoglobin Carboxyhemoglobin Sodium Potassium Chloride Carbon Dioxide BUN Creatinine Glucose POC Glucose 50 L 196 H 205 H Hemoglobin A1c Magnesium Ferritin AST ALT Alkaline Phosphatase Lactate Dehydrogenase C-Reactive Protein Total Protein Albumin Arterial Blood Glucose Coronavirus (PCR) 06/21/21 06/22/21 06/22/21 21:36 06:25 07:15 WBC MCV MCH MCHC RDW Lymph % (Auto) [place] % (Auto) Eos % (Auto) Lymph # (Auto) [place] # (Auto) Eos # (Auto) Baso # (Auto) Seg Neutrophils % Seg Neuts % (Manual) Lymphocytes % (Manual) Seg Neutrophils # Seg Neutrophils # Man Lymphocytes # (Manual) D-Dimer ABG pH POC ABG pCO2 POC ABG pO2 ABG pO2 ABG HCO3 ABG O2 Saturation ABG Base Excess ABG Oxyhemoglobin ABG Sodium ABG Chloride ABG Glucose Oxyhemoglobin Carboxyhemoglobin Sodium Potassium Chloride Carbon Dioxide BUN 20 H Creatinine 0.2 L Glucose POC Glucose 245 H 66 L Hemoglobin A1c Magnesium Ferritin AST ALT Alkaline Phosphatase Lactate Dehydrogenase C-Reactive Protein Total Protein Albumin Arterial Blood Glucose Coronavirus (PCR) 06/22/21 06/22/21 06/22/21 11:03 16:07 22:03 WBC MCV MCH MCHC RDW Lymph % (Auto) [place] % (Auto) Eos % (Auto) Lymph # (Auto) [place] # (Auto) Eos # (Auto) Baso # (Auto) Seg Neutrophils % Seg Neuts % (Manual) Lymphocytes % (Manual) Seg Neutrophils # Seg Neutrophils # Man Lymphocytes # (Manual) D-Dimer ABG pH POC ABG pCO2 POC ABG pO2 ABG pO2 ABG HCO3 ABG O2 Saturation ABG Base Excess ABG Oxyhemoglobin ABG Sodium ABG Chloride ABG Glucose Oxyhemoglobin Carboxyhemoglobin Sodium Potassium Chloride Carbon Dioxide BUN Creatinine Glucose POC Glucose 184 H 326 H 138 H Hemoglobin A1c Magnesium Ferritin AST ALT Alkaline Phosphatase Lactate Dehydrogenase C-Reactive Protein Total Protein Albumin Arterial Blood Glucose Coronavirus (PCR) 06/23/21 06/23/21 06/23/21 07:19 10:34 16:35 WBC MCV MCH MCHC RDW Lymph % (Auto) [place] % (Auto) Eos % (Auto) Lymph # (Auto) [place] # (Auto) Eos # (Auto) Baso # (Auto) Seg Neutrophils % Seg Neuts % (Manual) Lymphocytes % (Manual) Seg Neutrophils # Seg Neutrophils # Man Lymphocytes # (Manual) D-Dimer ABG pH POC ABG pCO2 POC ABG pO2 ABG pO2 ABG HCO3 ABG O2 Saturation ABG Base Excess ABG Oxyhemoglobin ABG Sodium ABG Chloride ABG Glucose Oxyhemoglobin Carboxyhemoglobin Sodium Potassium Chloride Carbon Dioxide BUN Creatinine Glucose POC Glucose 69 L 218 H 326 H Hemoglobin A1c Magnesium Ferritin AST ALT Alkaline Phosphatase Lactate Dehydrogenase C-Reactive Protein Total Protein Albumin Arterial Blood Glucose Coronavirus (PCR) 06/23/21 06/24/21 06/24/21 22:44 11:41 16:54 WBC MCV MCH MCHC RDW Lymph % (Auto) [place] % (Auto) Eos % (Auto) Lymph # (Auto) [place] # (Auto) Eos # (Auto) Baso # (Auto) Seg Neutrophils % Seg Neuts % (Manual) Lymphocytes % (Manual) Seg Neutrophils # Seg Neutrophils # Man Lymphocytes # (Manual) D-Dimer ABG pH POC ABG pCO2 POC ABG pO2 ABG pO2 ABG HCO3 ABG O2 Saturation ABG Base Excess ABG Oxyhemoglobin ABG Sodium ABG Chloride ABG Glucose Oxyhemoglobin Carboxyhemoglobin Sodium Potassium Chloride Carbon Dioxide BUN Creatinine Glucose POC Glucose 252 H 217 H 357 H Hemoglobin A1c Magnesium Ferritin AST ALT Alkaline Phosphatase Lactate Dehydrogenase C-Reactive Protein Total Protein Albumin Arterial Blood Glucose Coronavirus (PCR) 06/24/21 06/25/21 06/25/21 20:40 11:51 16:47 WBC MCV MCH MCHC RDW Lymph % (Auto) [place] % (Auto) Eos % (Auto) Lymph # (Auto) [place] # (Auto) Eos # (Auto) Baso # (Auto) Seg Neutrophils % Seg Neuts % (Manual) Lymphocytes % (Manual) Seg Neutrophils # Seg Neutrophils # Man Lymphocytes # (Manual) D-Dimer ABG pH POC ABG pCO2 POC ABG pO2 ABG pO2 ABG HCO3 ABG O2 Saturation ABG Base Excess ABG Oxyhemoglobin ABG Sodium ABG Chloride ABG Glucose Oxyhemoglobin Carboxyhemoglobin Sodium Potassium Chloride Carbon Dioxide BUN Creatinine Glucose POC Glucose 239 H 182 H 229 H Hemoglobin A1c Magnesium Ferritin AST ALT Alkaline Phosphatase Lactate Dehydrogenase C-Reactive Protein Total Protein Albumin Arterial Blood Glucose Coronavirus (PCR) 06/25/21 06/26/21 06/26/21 22:27 07:20 12:19 WBC MCV MCH MCHC RDW Lymph % (Auto) [place] % (Auto) Eos % (Auto) Lymph # (Auto) [place] # (Auto) Eos # (Auto) Baso # (Auto) Seg Neutrophils % Seg Neuts % (Manual) Lymphocytes % (Manual) Seg Neutrophils # Seg Neutrophils # Man Lymphocytes # (Manual) D-Dimer ABG pH POC ABG pCO2 POC ABG pO2 ABG pO2 ABG HCO3 ABG O2 Saturation ABG Base Excess ABG Oxyhemoglobin ABG Sodium ABG Chloride ABG Glucose Oxyhemoglobin Carboxyhemoglobin Sodium Potassium 3.2 L D Chloride Carbon Dioxide BUN 20 H Creatinine 0.3 L Glucose POC Glucose 209 H 273 H Hemoglobin A1c Magnesium Ferritin AST ALT 77 H Alkaline Phosphatase Lactate Dehydrogenase C-Reactive Protein Total Protein Albumin 3.3 L Arterial Blood Glucose Coronavirus (PCR) 06/26/21 06/26/21 06/27/21 16:52 20:55 07:14 WBC MCV MCH MCHC RDW Lymph % (Auto) [place] % (Auto) Eos % (Auto) Lymph # (Auto) [place] # (Auto) Eos # (Auto) Baso # (Auto) Seg Neutrophils % Seg Neuts % (Manual) Lymphocytes % (Manual) Seg Neutrophils # Seg Neutrophils # Man Lymphocytes # (Manual) D-Dimer ABG pH POC ABG pCO2 POC ABG pO2 ABG pO2 ABG HCO3 ABG O2 Saturation ABG Base Excess ABG Oxyhemoglobin ABG Sodium ABG Chloride ABG Glucose Oxyhemoglobin Carboxyhemoglobin Sodium Potassium Chloride Carbon Dioxide 31 H BUN 19 H Creatinine 0.2 L Glucose 112 H POC Glucose 326 H 220 H Hemoglobin A1c Magnesium Ferritin AST ALT Alkaline Phosphatase Lactate Dehydrogenase C-Reactive Protein Total Protein Albumin Arterial Blood Glucose Coronavirus (PCR) 06/27/21 06/27/21 06/27/21 07:29 10:54 15:49 WBC MCV MCH MCHC RDW Lymph % (Auto) [place] % (Auto) Eos % (Auto) Lymph # (Auto) [place] # (Auto) Eos # (Auto) Baso # (Auto) Seg Neutrophils % Seg Neuts % (Manual) Lymphocytes % (Manual) Seg Neutrophils # Seg Neutrophils # Man Lymphocytes # (Manual) D-Dimer ABG pH POC ABG pCO2 POC ABG pO2 ABG pO2 ABG HCO3 ABG O2 Saturation ABG Base Excess ABG Oxyhemoglobin ABG Sodium ABG Chloride ABG Glucose Oxyhemoglobin Carboxyhemoglobin Sodium Potassium Chloride Carbon Dioxide BUN Creatinine Glucose POC Glucose 115 H 228 H 240 H Hemoglobin A1c Magnesium Ferritin AST ALT Alkaline Phosphatase Lactate Dehydrogenase C-Reactive Protein Total Protein Albumin Arterial Blood Glucose Coronavirus (PCR) 06/28/21 06/28/21 06/28/21 05:43 05:43 07:13 WBC MCV MCH 33 H MCHC RDW 19.8 H Lymph % (Auto) [place] % (Auto) Eos % (Auto) Lymph # (Auto) [place] # (Auto) Eos # (Auto) Baso # (Auto) Seg Neutrophils % Seg Neuts % (Manual) Lymphocytes % (Manual) Seg Neutrophils # Seg Neutrophils # Man Lymphocytes # (Manual) D-Dimer ABG pH POC ABG pCO2 POC ABG pO2 ABG pO2 ABG HCO3 ABG O2 Saturation ABG Base Excess ABG Oxyhemoglobin ABG Sodium ABG Chloride ABG Glucose Oxyhemoglobin Carboxyhemoglobin Sodium Potassium 3.3 L Chloride Carbon Dioxide BUN 22 H Creatinine 0.2 L Glucose POC Glucose 69 L Hemoglobin A1c Magnesium Ferritin AST ALT 63 H Alkaline Phosphatase Lactate Dehydrogenase C-Reactive Protein Total Protein Albumin 3.3 L Arterial Blood Glucose Coronavirus (PCR) 06/28/21 06/28/21 06/28/21 12:18 15:37 21:01 WBC MCV MCH MCHC RDW Lymph % (Auto) [place] % (Auto) Eos % (Auto) Lymph # (Auto) [place] # (Auto) Eos # (Auto) Baso # (Auto) Seg Neutrophils % Seg Neuts % (Manual) Lymphocytes % (Manual) Seg Neutrophils # Seg Neutrophils # Man Lymphocytes # (Manual) D-Dimer ABG pH POC ABG pCO2 POC ABG pO2 ABG pO2 ABG HCO3 ABG O2 Saturation ABG Base Excess ABG Oxyhemoglobin ABG Sodium ABG Chloride ABG Glucose Oxyhemoglobin Carboxyhemoglobin Sodium Potassium Chloride Carbon Dioxide BUN Creatinine Glucose POC Glucose 154 H 201 H 191 H Hemoglobin A1c Magnesium Ferritin AST ALT Alkaline Phosphatase Lactate Dehydrogenase C-Reactive Protein Total Protein Albumin Arterial Blood Glucose Coronavirus (PCR) 06/29/21 06/29/21 06/29/21 11:55 15:47 21:06 WBC MCV MCH MCHC RDW Lymph % (Auto) [place] % (Auto) Eos % (Auto) Lymph # (Auto) [place] # (Auto) Eos # (Auto) Baso # (Auto) Seg Neutrophils % Seg Neuts % (Manual) Lymphocytes % (Manual) Seg Neutrophils # Seg Neutrophils # Man Lymphocytes # (Manual) D-Dimer ABG pH POC ABG pCO2 POC ABG pO2 ABG pO2 ABG HCO3 ABG O2 Saturation ABG Base Excess ABG Oxyhemoglobin ABG Sodium ABG Chloride ABG Glucose Oxyhemoglobin Carboxyhemoglobin Sodium Potassium Chloride Carbon Dioxide BUN Creatinine Glucose POC Glucose 238 H 249 H 155 H Hemoglobin A1c Magnesium Ferritin AST ALT Alkaline Phosphatase Lactate Dehydrogenase C-Reactive Protein Total Protein Albumin Arterial Blood Glucose Coronavirus (PCR) 06/30/21 06/30/21 06/30/21 04:00 07:50 11:50 WBC MCV MCH MCHC RDW Lymph % (Auto) [place] % (Auto) Eos % (Auto) Lymph # (Auto) [place] # (Auto) Eos # (Auto) Baso # (Auto) Seg Neutrophils % Seg Neuts % (Manual) Lymphocytes % (Manual) Seg Neutrophils # Seg Neutrophils # Man Lymphocytes # (Manual) D-Dimer ABG pH POC ABG pCO2 POC ABG pO2 ABG pO2 ABG HCO3 ABG O2 Saturation ABG Base Excess ABG Oxyhemoglobin ABG Sodium ABG Chloride ABG Glucose Oxyhemoglobin Carboxyhemoglobin Sodium Potassium 3.5 L Chloride Carbon Dioxide BUN 18 H Creatinine 0.3 L Glucose 111 H POC Glucose 117 H 250 H Hemoglobin A1c Magnesium Ferritin AST ALT Alkaline Phosphatase Lactate Dehydrogenase C-Reactive Protein Total Protein Albumin Arterial Blood Glucose Coronavirus (PCR) 06/30/21 06/30/21 07/01/21 16:05 21:02 07:26 WBC MCV MCH MCHC RDW Lymph % (Auto) [place] % (Auto) Eos % (Auto) Lymph # (Auto) [place] # (Auto) Eos # (Auto) Baso # (Auto) Seg Neutrophils % Seg Neuts % (Manual) Lymphocytes % (Manual) Seg Neutrophils # Seg Neutrophils # Man Lymphocytes # (Manual) D-Dimer ABG pH POC ABG pCO2 POC ABG pO2 ABG pO2 ABG HCO3 ABG O2 Saturation ABG Base Excess ABG Oxyhemoglobin ABG Sodium ABG Chloride ABG Glucose Oxyhemoglobin Carboxyhemoglobin Sodium Potassium Chloride Carbon Dioxide BUN Creatinine Glucose POC Glucose 250 H 217 H 111 H Hemoglobin A1c Magnesium Ferritin AST ALT Alkaline Phosphatase Lactate Dehydrogenase C-Reactive Protein Total Protein Albumin Arterial Blood Glucose Coronavirus (PCR) 07/01/21 07/01/21 07/01/21 11:06 15:48 21:31 WBC MCV MCH MCHC RDW Lymph % (Auto) [place] % (Auto) Eos % (Auto) Lymph # (Auto) [place] # (Auto) Eos # (Auto) Baso # (Auto) Seg Neutrophils % Seg Neuts % (Manual) Lymphocytes % (Manual) Seg Neutrophils # Seg Neutrophils # Man Lymphocytes # (Manual) D-Dimer ABG pH POC ABG pCO2 POC ABG pO2 ABG pO2 ABG HCO3 ABG O2 Saturation ABG Base Excess ABG Oxyhemoglobin ABG Sodium ABG Chloride ABG Glucose Oxyhemoglobin Carboxyhemoglobin Sodium Potassium Chloride Carbon Dioxide BUN Creatinine Glucose POC Glucose 229 H 239 H 199 H Hemoglobin A1c Magnesium Ferritin AST ALT Alkaline Phosphatase Lactate Dehydrogenase C-Reactive Protein Total Protein Albumin Arterial Blood Glucose Coronavirus (PCR) 07/02/21 07/02/21 07/02/21 11:50 16:44 21:49 WBC MCV MCH MCHC RDW Lymph % (Auto) [place] % (Auto) Eos % (Auto) Lymph # (Auto) [place] # (Auto) Eos # (Auto) Baso # (Auto) Seg Neutrophils % Seg Neuts % (Manual) Lymphocytes % (Manual) Seg Neutrophils # Seg Neutrophils # Man Lymphocytes # (Manual) D-Dimer ABG pH POC ABG pCO2 POC ABG pO2 ABG pO2 ABG HCO3 ABG O2 Saturation ABG Base Excess ABG Oxyhemoglobin ABG Sodium ABG Chloride ABG Glucose Oxyhemoglobin Carboxyhemoglobin Sodium Potassium Chloride Carbon Dioxide BUN Creatinine Glucose POC Glucose 230 H 203 H 197 H Hemoglobin A1c Magnesium Ferritin AST ALT Alkaline Phosphatase Lactate Dehydrogenase C-Reactive Protein Total Protein Albumin Arterial Blood Glucose Coronavirus (PCR) 07/03/21 07/03/21 07/03/21 05:46 05:46 11:59 WBC MCV MCH MCHC RDW 19.6 H Lymph % (Auto) [place] % (Auto) Eos % (Auto) Lymph # (Auto) [place] # (Auto) Eos # (Auto) Baso # (Auto) Seg Neutrophils % Seg Neuts % (Manual) Lymphocytes % (Manual) Seg Neutrophils # Seg Neutrophils # Man Lymphocytes # (Manual) D-Dimer ABG pH POC ABG pCO2 POC ABG pO2 ABG pO2 ABG HCO3 ABG O2 Saturation ABG Base Excess ABG Oxyhemoglobin ABG Sodium ABG Chloride ABG Glucose Oxyhemoglobin Carboxyhemoglobin Sodium Potassium 3.2 L Chloride Carbon Dioxide BUN Creatinine 0.3 L Glucose POC Glucose 145 H Hemoglobin A1c Magnesium Ferritin AST ALT Alkaline Phosphatase Lactate Dehydrogenase C-Reactive Protein Total Protein Albumin Arterial Blood Glucose Coronavirus (PCR) 07/03/21 07/03/21 07/04/21 16:40 22:00 06:35 WBC MCV MCH MCHC RDW Lymph % (Auto) [place] % (Auto) Eos % (Auto) Lymph # (Auto) [place] # (Auto) Eos # (Auto) Baso # (Auto) Seg Neutrophils % Seg Neuts % (Manual) Lymphocytes % (Manual) Seg Neutrophils # Seg Neutrophils # Man Lymphocytes # (Manual) D-Dimer ABG pH POC ABG pCO2 POC ABG pO2 ABG pO2 ABG HCO3 ABG O2 Saturation ABG Base Excess ABG Oxyhemoglobin ABG Sodium ABG Chloride ABG Glucose Oxyhemoglobin Carboxyhemoglobin Sodium Potassium Chloride Carbon Dioxide BUN Creatinine 0.3 L Glucose 118 H POC Glucose 176 H 127 H Hemoglobin A1c Magnesium Ferritin AST ALT Alkaline Phosphatase Lactate Dehydrogenase C-Reactive Protein Total Protein Albumin Arterial Blood Glucose Coronavirus (PCR) 07/04/21 07/04/21 07/05/21 12:30 16:38 08:37 WBC MCV MCH MCHC RDW Lymph % (Auto) [place] % (Auto) Eos % (Auto) Lymph # (Auto) [place] # (Auto) Eos # (Auto) Baso # (Auto) Seg Neutrophils % Seg Neuts % (Manual) Lymphocytes % (Manual) Seg Neutrophils # Seg Neutrophils # Man Lymphocytes # (Manual) D-Dimer ABG pH POC ABG pCO2 POC ABG pO2 ABG pO2 ABG HCO3 ABG O2 Saturation ABG Base Excess ABG Oxyhemoglobin ABG Sodium ABG Chloride ABG Glucose Oxyhemoglobin Carboxyhemoglobin Sodium Potassium Chloride Carbon Dioxide BUN Creatinine Glucose POC Glucose 162 H 205 H 115 H Hemoglobin A1c Magnesium Ferritin AST ALT Alkaline Phosphatase Lactate Dehydrogenase C-Reactive Protein Total Protein Albumin Arterial Blood Glucose Coronavirus (PCR) 07/05/21 07/05/21 07/05/21 10:57 16:42 21:14 WBC MCV MCH MCHC RDW Lymph % (Auto) [place] % (Auto) Eos % (Auto) Lymph # (Auto) [place] # (Auto) Eos # (Auto) Baso # (Auto) Seg Neutrophils % Seg Neuts % (Manual) Lymphocytes % (Manual) Seg Neutrophils # Seg Neutrophils # Man Lymphocytes # (Manual) D-Dimer ABG pH POC ABG pCO2 POC ABG pO2 ABG pO2 ABG HCO3 ABG O2 Saturation ABG Base Excess ABG Oxyhemoglobin ABG Sodium ABG Chloride ABG Glucose Oxyhemoglobin Carboxyhemoglobin Sodium Potassium Chloride Carbon Dioxide BUN Creatinine Glucose POC Glucose 151 H 184 H 130 H Hemoglobin A1c Magnesium Ferritin AST ALT Alkaline Phosphatase Lactate Dehydrogenase C-Reactive Protein Total Protein Albumin Arterial Blood Glucose Coronavirus (PCR) 07/06/21 07/06/21 07/06/21 07:31 11:49 16:46 WBC MCV MCH MCHC RDW Lymph % (Auto) [place] % (Auto) Eos % (Auto) Lymph # (Auto) [place] # (Auto) Eos # (Auto) Baso # (Auto) Seg Neutrophils % Seg Neuts % (Manual) Lymphocytes % (Manual) Seg Neutrophils # Seg Neutrophils # Man Lymphocytes # (Manual) D-Dimer ABG pH POC ABG pCO2 POC ABG pO2 ABG pO2 ABG HCO3 ABG O2 Saturation ABG Base Excess ABG Oxyhemoglobin ABG Sodium ABG Chloride ABG Glucose Oxyhemoglobin Carboxyhemoglobin Sodium Potassium Chloride Carbon Dioxide BUN Creatinine Glucose POC Glucose 106 H 173 H 205 H Hemoglobin A1c Magnesium Ferritin AST ALT Alkaline Phosphatase Lactate Dehydrogenase C-Reactive Protein Total Protein Albumin Arterial Blood Glucose Coronavirus (PCR) 07/06/21 07/07/21 07/07/21 21:38 06:00 06:00 WBC 16.1 H MCV MCH MCHC RDW 18.8 H Lymph % (Auto) [place] % (Auto) Eos % (Auto) Lymph # (Auto) [place] # (Auto) 1.1 H Eos # (Auto) Baso # (Auto) 0.2 H Seg Neutrophils % 74.9 H Seg Neuts % (Manual) Lymphocytes % (Manual) Seg Neutrophils # 12.1 H Seg Neutrophils # Man Lymphocytes # (Manual) D-Dimer ABG pH POC ABG pCO2 POC ABG pO2 ABG pO2 ABG HCO3 ABG O2 Saturation ABG Base Excess ABG Oxyhemoglobin ABG Sodium ABG Chloride ABG Glucose Oxyhemoglobin Carboxyhemoglobin Sodium Potassium 3.5 L D Chloride Carbon Dioxide BUN 6 L Creatinine < 0.2 L Glucose 106 H POC Glucose 120 H Hemoglobin A1c Magnesium Ferritin AST ALT Alkaline Phosphatase Lactate Dehydrogenase C-Reactive Protein Total Protein Albumin Arterial Blood Glucose Coronavirus (PCR) 07/07/21 07/07/21 07/07/21 07:10 11:53 15:53 WBC MCV MCH MCHC RDW Lymph % (Auto) [place] % (Auto) Eos % (Auto) Lymph # (Auto) [place] # (Auto) Eos # (Auto) Baso # (Auto) Seg Neutrophils % Seg Neuts % (Manual) Lymphocytes % (Manual) Seg Neutrophils # Seg Neutrophils # Man Lymphocytes # (Manual) D-Dimer ABG pH POC ABG pCO2 POC ABG pO2 ABG pO2 ABG HCO3 ABG O2 Saturation ABG Base Excess ABG Oxyhemoglobin ABG Sodium ABG Chloride ABG Glucose Oxyhemoglobin Carboxyhemoglobin Sodium Potassium Chloride Carbon Dioxide BUN Creatinine Glucose POC Glucose 132 H 169 H 242 H Hemoglobin A1c Magnesium Ferritin AST ALT Alkaline Phosphatase Lactate Dehydrogenase C-Reactive Protein Total Protein Albumin Arterial Blood Glucose Coronavirus (PCR) 07/07/21 07/08/21 07/08/21 21:41 08:09 12:20 WBC MCV MCH MCHC RDW Lymph % (Auto) [place] % (Auto) Eos % (Auto) Lymph # (Auto) [place] # (Auto) Eos # (Auto) Baso # (Auto) Seg Neutrophils % Seg Neuts % (Manual) Lymphocytes % (Manual) Seg Neutrophils # Seg Neutrophils # Man Lymphocytes # (Manual) D-Dimer ABG pH POC ABG pCO2 POC ABG pO2 ABG pO2 ABG HCO3 ABG O2 Saturation ABG Base Excess ABG Oxyhemoglobin ABG Sodium ABG Chloride ABG Glucose Oxyhemoglobin Carboxyhemoglobin Sodium Potassium Chloride Carbon Dioxide BUN Creatinine Glucose POC Glucose 128 H 132 H 179 H Hemoglobin A1c Magnesium Ferritin AST ALT Alkaline Phosphatase Lactate Dehydrogenase C-Reactive Protein Total Protein Albumin Arterial Blood Glucose Coronavirus (PCR) 07/08/21 07/08/21 07/08/21 16:37 21:45 22:44 WBC MCV MCH MCHC RDW Lymph % (Auto) [place] % (Auto) Eos % (Auto) Lymph # (Auto) [place] # (Auto) Eos # (Auto) Baso # (Auto) Seg Neutrophils % Seg Neuts % (Manual) Lymphocytes % (Manual) Seg Neutrophils # Seg Neutrophils # Man Lymphocytes # (Manual) D-Dimer ABG pH POC ABG pCO2 POC ABG pO2 ABG pO2 ABG HCO3 ABG O2 Saturation ABG Base Excess ABG Oxyhemoglobin ABG Sodium ABG Chloride ABG Glucose Oxyhemoglobin Carboxyhemoglobin Sodium Potassium Chloride Carbon Dioxide BUN Creatinine Glucose POC Glucose 192 H 51 L 137 H Hemoglobin A1c Magnesium Ferritin AST ALT Alkaline Phosphatase Lactate Dehydrogenase C-Reactive Protein Total Protein Albumin Arterial Blood Glucose Coronavirus (PCR) 07/09/21 07/09/21 07/09/21 04:45 04:45 04:45 WBC MCV MCH MCHC RDW 18.3 H Lymph % (Auto) [place] % (Auto) Eos % (Auto) Lymph # (Auto) [place] # (Auto) Eos # (Auto) Baso # (Auto) Seg Neutrophils % Seg Neuts % (Manual) 82.0 H Lymphocytes % (Manual) 13.0 L Seg Neutrophils # Seg Neutrophils # Man 7.8 H Lymphocytes # (Manual) D-Dimer 638.35 H ABG pH POC ABG pCO2 POC ABG pO2 ABG pO2 ABG HCO3 ABG O2 Saturation ABG Base Excess ABG Oxyhemoglobin ABG Sodium ABG Chloride ABG Glucose Oxyhemoglobin Carboxyhemoglobin Sodium Potassium Chloride 96.9 L Carbon Dioxide 35 H BUN Creatinine 0.2 L Glucose 135 H POC Glucose Hemoglobin A1c Magnesium Ferritin AST ALT Alkaline Phosphatase Lactate Dehydrogenase C-Reactive Protein 4.30 H Total Protein Albumin Arterial Blood Glucose Coronavirus (PCR) 07/09/21 07/09/21 07/09/21 05:19 07:36 11:16 WBC MCV MCH MCHC RDW Lymph % (Auto) [place] % (Auto) Eos % (Auto) Lymph # (Auto) [place] # (Auto) Eos # (Auto) Baso # (Auto) Seg Neutrophils % Seg Neuts % (Manual) Lymphocytes % (Manual) Seg Neutrophils # Seg Neutrophils # Man Lymphocytes # (Manual) D-Dimer ABG pH POC ABG pCO2 POC ABG pO2 ABG pO2 ABG HCO3 ABG O2 Saturation ABG Base Excess ABG Oxyhemoglobin ABG Sodium ABG Chloride ABG Glucose Oxyhemoglobin Carboxyhemoglobin Sodium Potassium Chloride Carbon Dioxide BUN Creatinine Glucose POC Glucose 135 H 148 H 212 H Hemoglobin A1c Magnesium Ferritin AST ALT Alkaline Phosphatase Lactate Dehydrogenase C-Reactive Protein Total Protein Albumin Arterial Blood Glucose Coronavirus (PCR) 07/09/21 07/09/21 07/10/21 15:21 21:12 05:40 WBC MCV MCH MCHC RDW Lymph % (Auto) [place] % (Auto) Eos % (Auto) Lymph # (Auto) [place] # (Auto) Eos # (Auto) Baso # (Auto) Seg Neutrophils % Seg Neuts % (Manual) Lymphocytes % (Manual) Seg Neutrophils # Seg Neutrophils # Man Lymphocytes # (Manual) D-Dimer ABG pH POC ABG pCO2 POC ABG pO2 ABG pO2 ABG HCO3 ABG O2 Saturation ABG Base Excess ABG Oxyhemoglobin ABG Sodium ABG Chloride ABG Glucose Oxyhemoglobin Carboxyhemoglobin Sodium Potassium 3.3 L Chloride 95.1 L Carbon Dioxide 39 H BUN Creatinine 0.2 L Glucose 122 H POC Glucose 128 H 196 H Hemoglobin A1c Magnesium Ferritin AST ALT Alkaline Phosphatase Lactate Dehydrogenase C-Reactive Protein Total Protein Albumin Arterial Blood Glucose Coronavirus (PCR) 07/10/21 07/10/21 07/10/21 07:38 11:15 16:29 WBC MCV MCH MCHC RDW Lymph % (Auto) [place] % (Auto) Eos % (Auto) Lymph # (Auto) [place] # (Auto) Eos # (Auto) Baso # (Auto) Seg Neutrophils % Seg Neuts % (Manual) Lymphocytes % (Manual) Seg Neutrophils # Seg Neutrophils # Man Lymphocytes # (Manual) D-Dimer ABG pH POC ABG pCO2 POC ABG pO2 ABG pO2 ABG HCO3 ABG O2 Saturation ABG Base Excess ABG Oxyhemoglobin ABG Sodium ABG Chloride ABG Glucose Oxyhemoglobin Carboxyhemoglobin Sodium Potassium Chloride Carbon Dioxide BUN Creatinine Glucose POC Glucose 128 H 175 H 174 H Hemoglobin A1c Magnesium Ferritin AST ALT Alkaline Phosphatase Lactate Dehydrogenase C-Reactive Protein Total Protein Albumin Arterial Blood Glucose Coronavirus (PCR) 07/10/21 07/11/21 07/11/21 20:49 05:50 12:08 WBC MCV MCH MCHC RDW Lymph % (Auto) [place] % (Auto) Eos % (Auto) Lymph # (Auto) [place] # (Auto) Eos # (Auto) Baso # (Auto) Seg Neutrophils % Seg Neuts % (Manual) Lymphocytes % (Manual) Seg Neutrophils # Seg Neutrophils # Man Lymphocytes # (Manual) D-Dimer ABG pH POC ABG pCO2 POC ABG pO2 ABG pO2 ABG HCO3 ABG O2 Saturation ABG Base Excess ABG Oxyhemoglobin ABG Sodium ABG Chloride ABG Glucose Oxyhemoglobin Carboxyhemoglobin Sodium Potassium Chloride 97.3 L Carbon Dioxide 34 H BUN Creatinine 0.2 L Glucose 109 H POC Glucose 142 H 220 H Hemoglobin A1c Magnesium Ferritin AST ALT Alkaline Phosphatase Lactate Dehydrogenase C-Reactive Protein Total Protein Albumin Arterial Blood Glucose Coronavirus (PCR) 07/11/21 07/11/21 07/12/21 17:09 21:55 07:36 WBC MCV MCH MCHC RDW Lymph % (Auto) [place] % (Auto) Eos % (Auto) Lymph # (Auto) [place] # (Auto) Eos # (Auto) Baso # (Auto) Seg Neutrophils % Seg Neuts % (Manual) Lymphocytes % (Manual) Seg Neutrophils # Seg Neutrophils # Man Lymphocytes # (Manual) D-Dimer ABG pH POC ABG pCO2 POC ABG pO2 ABG pO2 ABG HCO3 ABG O2 Saturation ABG Base Excess ABG Oxyhemoglobin ABG Sodium ABG Chloride ABG Glucose Oxyhemoglobin Carboxyhemoglobin Sodium Potassium Chloride Carbon Dioxide BUN Creatinine Glucose POC Glucose 219 H 124 H 114 H Hemoglobin A1c Magnesium Ferritin AST ALT Alkaline Phosphatase Lactate Dehydrogenase C-Reactive Protein Total Protein Albumin Arterial Blood Glucose Coronavirus (PCR) 07/12/21 07/12/21 07/12/21 11:08 15:43 22:20 WBC MCV MCH MCHC RDW Lymph % (Auto) [place] % (Auto) Eos % (Auto) Lymph # (Auto) [place] # (Auto) Eos # (Auto) Baso # (Auto) Seg Neutrophils % Seg Neuts % (Manual) Lymphocytes % (Manual) Seg Neutrophils # Seg Neutrophils # Man Lymphocytes # (Manual) D-Dimer ABG pH POC ABG pCO2 POC ABG pO2 ABG pO2 ABG HCO3 ABG O2 Saturation ABG Base Excess ABG Oxyhemoglobin ABG Sodium ABG Chloride ABG Glucose Oxyhemoglobin Carboxyhemoglobin Sodium Potassium Chloride Carbon Dioxide BUN Creatinine Glucose POC Glucose 195 H 276 H 189 H Hemoglobin A1c Magnesium Ferritin AST ALT Alkaline Phosphatase Lactate Dehydrogenase C-Reactive Protein Total Protein Albumin Arterial Blood Glucose Coronavirus (PCR) 07/13/21 07/13/21 07/13/21 08:01 08:08 10:17 WBC MCV MCH MCHC RDW Lymph % (Auto) [place] % (Auto) Eos % (Auto) Lymph # (Auto) [place] # (Auto) Eos # (Auto) Baso # (Auto) Seg Neutrophils % Seg Neuts % (Manual) Lymphocytes % (Manual) Seg Neutrophils # Seg Neutrophils # Man Lymphocytes # (Manual) D-Dimer ABG pH POC ABG pCO2 POC ABG pO2 ABG pO2 ABG HCO3 ABG O2 Saturation ABG Base Excess ABG Oxyhemoglobin ABG Sodium ABG Chloride ABG Glucose Oxyhemoglobin Carboxyhemoglobin Sodium Potassium Chloride 94.4 L Carbon Dioxide 34 H BUN Creatinine 0.3 L Glucose 149 H POC Glucose 132 H 265 H Hemoglobin A1c Magnesium Ferritin AST ALT Alkaline Phosphatase Lactate Dehydrogenase C-Reactive Protein Total Protein Albumin Arterial Blood Glucose Coronavirus (PCR) 07/13/21 07/13/21 07/14/21 17:58 21:41 07:34 WBC MCV MCH MCHC RDW Lymph % (Auto) [place] % (Auto) Eos % (Auto) Lymph # (Auto) [place] # (Auto) Eos # (Auto) Baso # (Auto) Seg Neutrophils % Seg Neuts % (Manual) Lymphocytes % (Manual) Seg Neutrophils # Seg Neutrophils # Man Lymphocytes # (Manual) D-Dimer ABG pH POC ABG pCO2 POC ABG pO2 ABG pO2 ABG HCO3 ABG O2 Saturation ABG Base Excess ABG Oxyhemoglobin ABG Sodium ABG Chloride ABG Glucose Oxyhemoglobin Carboxyhemoglobin Sodium Potassium Chloride Carbon Dioxide BUN Creatinine Glucose POC Glucose 217 H 223 H 116 H Hemoglobin A1c Magnesium Ferritin AST ALT Alkaline Phosphatase Lactate Dehydrogenase C-Reactive Protein Total Protein Albumin Arterial Blood Glucose Coronavirus (PCR) 07/14/21 07/14/21 07/14/21 10:50 17:33 20:51 WBC MCV MCH MCHC RDW Lymph % (Auto) [place] % (Auto) Eos % (Auto) Lymph # (Auto) [place] # (Auto) Eos # (Auto) Baso # (Auto) Seg Neutrophils % Seg Neuts % (Manual) Lymphocytes % (Manual) Seg Neutrophils # Seg Neutrophils # Man Lymphocytes # (Manual) D-Dimer ABG pH POC ABG pCO2 POC ABG pO2 ABG pO2 ABG HCO3 ABG O2 Saturation ABG Base Excess ABG Oxyhemoglobin ABG Sodium ABG Chloride ABG Glucose Oxyhemoglobin Carboxyhemoglobin Sodium Potassium Chloride Carbon Dioxide BUN Creatinine Glucose POC Glucose 191 H 173 H 132 H Hemoglobin A1c Magnesium Ferritin AST ALT Alkaline Phosphatase Lactate Dehydrogenase C-Reactive Protein Total Protein Albumin Arterial Blood Glucose Coronavirus (PCR) 07/15/21 07/15/21 07/15/21 04:00 07:59 12:31 WBC MCV MCH MCHC RDW Lymph % (Auto) [place] % (Auto) Eos % (Auto) Lymph # (Auto) [place] # (Auto) Eos # (Auto) Baso # (Auto) Seg Neutrophils % Seg Neuts % (Manual) Lymphocytes % (Manual) Seg Neutrophils # Seg Neutrophils # Man Lymphocytes # (Manual) D-Dimer ABG pH POC ABG pCO2 POC ABG pO2 ABG pO2 ABG HCO3 ABG O2 Saturation ABG Base Excess ABG Oxyhemoglobin ABG Sodium ABG Chloride ABG Glucose Oxyhemoglobin Carboxyhemoglobin Sodium Potassium Chloride 96.0 L Carbon Dioxide 32 H BUN Creatinine 0.3 L Glucose 208 H POC Glucose 117 H 195 H Hemoglobin A1c Magnesium Ferritin AST ALT Alkaline Phosphatase Lactate Dehydrogenase C-Reactive Protein Total Protein Albumin Arterial Blood Glucose Coronavirus (PCR) 07/15/21 07/15/21 07/16/21 18:00 20:57 04:40 WBC MCV MCH MCHC RDW 17.1 H Lymph % (Auto) [place] % (Auto) Eos % (Auto) Lymph # (Auto) [place] # (Auto) Eos # (Auto) Baso # (Auto) Seg Neutrophils % Seg Neuts % (Manual) Lymphocytes % (Manual) Seg Neutrophils # Seg Neutrophils # Man Lymphocytes # (Manual) D-Dimer ABG pH POC ABG pCO2 POC ABG pO2 ABG pO2 ABG HCO3 ABG O2 Saturation ABG Base Excess ABG Oxyhemoglobin ABG Sodium ABG Chloride ABG Glucose Oxyhemoglobin Carboxyhemoglobin Sodium Potassium Chloride Carbon Dioxide BUN Creatinine Glucose POC Glucose 217 H 111 H Hemoglobin A1c Magnesium Ferritin AST ALT Alkaline Phosphatase Lactate Dehydrogenase C-Reactive Protein Total Protein Albumin Arterial Blood Glucose Coronavirus (PCR) 07/16/21 07/16/21 07/16/21 04:40 07:08 11:11 WBC MCV MCH MCHC RDW Lymph % (Auto) [place] % (Auto) Eos % (Auto) Lymph # (Auto) [place] # (Auto) Eos # (Auto) Baso # (Auto) Seg Neutrophils % Seg Neuts % (Manual) Lymphocytes % (Manual) Seg Neutrophils # Seg Neutrophils # Man Lymphocytes # (Manual) D-Dimer ABG pH POC ABG pCO2 POC ABG pO2 ABG pO2 ABG HCO3 ABG O2 Saturation ABG Base Excess ABG Oxyhemoglobin ABG Sodium ABG Chloride ABG Glucose Oxyhemoglobin Carboxyhemoglobin Sodium Potassium 3.4 L Chloride 94.6 L Carbon Dioxide 36 H BUN Creatinine < 0.2 L Glucose 101 H POC Glucose 118 H 184 H Hemoglobin A1c Magnesium Ferritin AST ALT Alkaline Phosphatase Lactate Dehydrogenase C-Reactive Protein Total Protein Albumin Arterial Blood Glucose Coronavirus (PCR) 07/16/21 07/16/21 07/17/21 17:29 22:01 08:10 WBC MCV MCH MCHC RDW Lymph % (Auto) [place] % (Auto) Eos % (Auto) Lymph # (Auto) [place] # (Auto) Eos # (Auto) Baso # (Auto) Seg Neutrophils % Seg Neuts % (Manual) Lymphocytes % (Manual) Seg Neutrophils # Seg Neutrophils # Man Lymphocytes # (Manual) D-Dimer ABG pH POC ABG pCO2 POC ABG pO2 ABG pO2 ABG HCO3 ABG O2 Saturation ABG Base Excess ABG Oxyhemoglobin ABG Sodium ABG Chloride ABG Glucose Oxyhemoglobin Carboxyhemoglobin Sodium Potassium Chloride Carbon Dioxide BUN Creatinine Glucose POC Glucose 200 H 147 H 118 H Hemoglobin A1c Magnesium Ferritin AST ALT Alkaline Phosphatase Lactate Dehydrogenase C-Reactive Protein Total Protein Albumin Arterial Blood Glucose Coronavirus (PCR) 07/17/21 07/17/21 07/17/21 11:38 16:24 21:13 WBC MCV MCH MCHC RDW Lymph % (Auto) [place] % (Auto) Eos % (Auto) Lymph # (Auto) [place] # (Auto) Eos # (Auto) Baso # (Auto) Seg Neutrophils % Seg Neuts % (Manual) Lymphocytes % (Manual) Seg Neutrophils # Seg Neutrophils # Man Lymphocytes # (Manual) D-Dimer ABG pH POC ABG pCO2 POC ABG pO2 ABG pO2 ABG HCO3 ABG O2 Saturation ABG Base Excess ABG Oxyhemoglobin ABG Sodium ABG Chloride ABG Glucose Oxyhemoglobin Carboxyhemoglobin Sodium Potassium Chloride Carbon Dioxide BUN Creatinine Glucose POC Glucose 151 H 268 H 115 H Hemoglobin A1c Magnesium Ferritin AST ALT Alkaline Phosphatase Lactate Dehydrogenase C-Reactive Protein Total Protein Albumin Arterial Blood Glucose Coronavirus (PCR) 07/18/21 07/18/21 07/18/21 07:58 12:29 20:24 WBC MCV MCH MCHC RDW Lymph % (Auto) [place] % (Auto) Eos % (Auto) Lymph # (Auto) [place] # (Auto) Eos # (Auto) Baso # (Auto) Seg Neutrophils % Seg Neuts % (Manual) Lymphocytes % (Manual) Seg Neutrophils # Seg Neutrophils # Man Lymphocytes # (Manual) D-Dimer ABG pH POC ABG pCO2 POC ABG pO2 ABG pO2 ABG HCO3 ABG O2 Saturation ABG Base Excess ABG Oxyhemoglobin ABG Sodium ABG Chloride ABG Glucose Oxyhemoglobin Carboxyhemoglobin Sodium Potassium Chloride Carbon Dioxide BUN Creatinine Glucose POC Glucose 135 H 139 H 130 H Hemoglobin A1c Magnesium Ferritin AST ALT Alkaline Phosphatase Lactate Dehydrogenase C-Reactive Protein Total Protein Albumin Arterial Blood Glucose Coronavirus (PCR) 07/19/21 07/19/21 07/19/21 06:55 06:55 07:54 WBC 14.5 H MCV MCH MCHC RDW 17.3 H Lymph % (Auto) 9.6 L [place] % (Auto) Eos % (Auto) Lymph # (Auto) [place] # (Auto) Eos # (Auto) 0.6 H Baso # (Auto) Seg Neutrophils % 80.3 H Seg Neuts % (Manual) Lymphocytes % (Manual) Seg Neutrophils # 11.7 H Seg Neutrophils # Man Lymphocytes # (Manual) D-Dimer ABG pH POC ABG pCO2 67.9 H POC ABG pO2 131.0 H ABG pO2 ABG HCO3 ABG O2 Saturation ABG Base Excess ABG Oxyhemoglobin ABG Sodium ABG Chloride 97.0 L ABG Glucose 133 H Oxyhemoglobin Carboxyhemoglobin Sodium Potassium Chloride 95.3 L Carbon Dioxide 35 H BUN Creatinine < 0.2 L Glucose 138 H POC Glucose Hemoglobin A1c Magnesium Ferritin AST ALT Alkaline Phosphatase Lactate Dehydrogenase C-Reactive Protein Total Protein Albumin Arterial Blood Glucose 133 H Coronavirus (PCR) 07/19/21 07/19/21 07/19/21 08:10 11:43 17:04 WBC MCV MCH MCHC RDW Lymph % (Auto) [place] % (Auto) Eos % (Auto) Lymph # (Auto) [place] # (Auto) Eos # (Auto) Baso # (Auto) Seg Neutrophils % Seg Neuts % (Manual) Lymphocytes % (Manual) Seg Neutrophils # Seg Neutrophils # Man Lymphocytes # (Manual) D-Dimer ABG pH POC ABG pCO2 POC ABG pO2 ABG pO2 ABG HCO3 ABG O2 Saturation ABG Base Excess ABG Oxyhemoglobin ABG Sodium ABG Chloride ABG Glucose Oxyhemoglobin Carboxyhemoglobin Sodium Potassium Chloride Carbon Dioxide BUN Creatinine Glucose POC Glucose 129 H 126 H 108 H Hemoglobin A1c Magnesium Ferritin AST ALT Alkaline Phosphatase Lactate Dehydrogenase C-Reactive Protein Total Protein Albumin Arterial Blood Glucose Coronavirus (PCR) 07/19/21 07/20/21 07/20/21 21:10 04:00 04:00 WBC MCV MCH MCHC RDW 17.0 H Lymph % (Auto) [place] % (Auto) 8.9 H Eos % (Auto) 6.3 H Lymph # (Auto) [place] # (Auto) 0.9 H Eos # (Auto) 0.6 H Baso # (Auto) Seg Neutrophils % 70.2 H Seg Neuts % (Manual) Lymphocytes % (Manual) Seg Neutrophils # Seg Neutrophils # Man Lymphocytes # (Manual) D-Dimer ABG pH POC ABG pCO2 POC ABG pO2 ABG pO2 ABG HCO3 ABG O2 Saturation ABG Base Excess ABG Oxyhemoglobin ABG Sodium ABG Chloride ABG Glucose Oxyhemoglobin Carboxyhemoglobin Sodium Potassium Chloride 96.7 L Carbon Dioxide 36 H BUN Creatinine 0.2 L Glucose 102 H POC Glucose 109 H Hemoglobin A1c Magnesium Ferritin AST ALT Alkaline Phosphatase Lactate Dehydrogenase C-Reactive Protein Total Protein Albumin 3.2 L Arterial Blood Glucose Coronavirus (PCR) 07/20/21 07/20/21 07/20/21 11:15 15:34 17:01 WBC MCV MCH MCHC RDW Lymph % (Auto) [place] % (Auto) Eos % (Auto) Lymph # (Auto) [place] # (Auto) Eos # (Auto) Baso # (Auto) Seg Neutrophils % Seg Neuts % (Manual) Lymphocytes % (Manual) Seg Neutrophils # Seg Neutrophils # Man Lymphocytes # (Manual) D-Dimer ABG pH POC ABG pCO2 POC ABG pO2 ABG pO2 ABG HCO3 ABG O2 Saturation ABG Base Excess ABG Oxyhemoglobin ABG Sodium ABG Chloride ABG Glucose Oxyhemoglobin Carboxyhemoglobin Sodium Potassium Chloride Carbon Dioxide BUN Creatinine Glucose POC Glucose 109 H 152 H 125 H Hemoglobin A1c Magnesium Ferritin AST ALT Alkaline Phosphatase Lactate Dehydrogenase C-Reactive Protein Total Protein Albumin Arterial Blood Glucose Coronavirus (PCR) 07/20/21 07/21/21 07/21/21 21:00 04:48 04:48 WBC 12.8 H MCV MCH MCHC RDW 16.8 H Lymph % (Auto) 9.3 L [place] % (Auto) Eos % (Auto) Lymph # (Auto) [place] # (Auto) 0.9 H Eos # (Auto) Baso # (Auto) Seg Neutrophils % 81.1 H Seg Neuts % (Manual) Lymphocytes % (Manual) Seg Neutrophils # 10.4 H Seg Neutrophils # Man Lymphocytes # (Manual) D-Dimer ABG pH POC ABG pCO2 POC ABG pO2 ABG pO2 ABG HCO3 ABG O2 Saturation ABG Base Excess ABG Oxyhemoglobin ABG Sodium ABG Chloride ABG Glucose Oxyhemoglobin Carboxyhemoglobin Sodium Potassium Chloride 95.4 L Carbon Dioxide 33 H BUN 6 L Creatinine < 0.2 L Glucose 155 H POC Glucose 211 H Hemoglobin A1c Magnesium 1.60 L Ferritin AST ALT Alkaline Phosphatase Lactate Dehydrogenase C-Reactive Protein Total Protein Albumin Arterial Blood Glucose Coronavirus (PCR) 1107/21/21 07/21/21 07:52 11:05 17:01 WBC MCV MCH MCHC RDW Lymph % (Auto) [place] % (Auto) Eos % (Auto) Lymph # (Auto) [place] # (Auto) Eos # (Auto) Baso # (Auto) Seg Neutrophils % Seg Neuts % (Manual) Lymphocytes % (Manual) Seg Neutrophils # Seg Neutrophils # Man Lymphocytes # (Manual) D-Dimer ABG pH POC ABG pCO2 POC ABG pO2 ABG pO2 ABG HCO3 ABG O2 Saturation ABG Base Excess ABG Oxyhemoglobin ABG Sodium ABG Chloride ABG Glucose Oxyhemoglobin Carboxyhemoglobin Sodium Potassium Chloride Carbon Dioxide BUN Creatinine Glucose POC Glucose 116 H 207 H 133 H Hemoglobin A1c Magnesium Ferritin AST ALT Alkaline Phosphatase Lactate Dehydrogenase C-Reactive Protein Total Protein Albumin Arterial Blood Glucose Coronavirus (PCR) 07/21/21 07/22/21 07/22/21 21:17 07:55 07:55 WBC MCV MCH MCHC RDW 16.5 H Lymph % (Auto) [place] % (Auto) 8.6 H Eos % (Auto) Lymph # (Auto) [place] # (Auto) Eos # (Auto) Baso # (Auto) Seg Neutrophils % 72.3 H Seg Neuts % (Manual) Lymphocytes % (Manual) Seg Neutrophils # Seg Neutrophils # Man Lymphocytes # (Manual) D-Dimer ABG pH POC ABG pCO2 POC ABG pO2 ABG pO2 ABG HCO3 ABG O2 Saturation ABG Base Excess ABG Oxyhemoglobin ABG Sodium ABG Chloride ABG Glucose Oxyhemoglobin Carboxyhemoglobin Sodium Potassium Chloride 94.6 L Carbon Dioxide 42 H* D BUN 5 L Creatinine < 0.2 L Glucose POC Glucose 152 H Hemoglobin A1c Magnesium Ferritin AST ALT Alkaline Phosphatase Lactate Dehydrogenase C-Reactive Protein Total Protein Albumin Arterial Blood Glucose Coronavirus (PCR) 07/22/21 07/22/21 07/22/21 11:25 12:05 15:40 WBC MCV MCH MCHC RDW Lymph % (Auto) [place] % (Auto) Eos % (Auto) Lymph # (Auto) [place] # (Auto) Eos # (Auto) Baso # (Auto) Seg Neutrophils % Seg Neuts % (Manual) Lymphocytes % (Manual) Seg Neutrophils # Seg Neutrophils # Man Lymphocytes # (Manual) D-Dimer ABG pH 7.338 L POC ABG pCO2 POC ABG pO2 ABG pO2 66.1 L ABG HCO3 45.0 H ABG O2 Saturation 94.2 L ABG Base Excess 15.2 H ABG Oxyhemoglobin ABG Sodium ABG Chloride ABG Glucose Oxyhemoglobin 91.9 L Carboxyhemoglobin Sodium Potassium Chloride Carbon Dioxide BUN Creatinine Glucose POC Glucose 146 H 219 H Hemoglobin A1c Magnesium Ferritin AST ALT Alkaline Phosphatase Lactate Dehydrogenase C-Reactive Protein Total Protein Albumin Arterial Blood Glucose Coronavirus (PCR) 07/22/21 07/23/21 07/23/21 21:26 04:35 04:35 WBC MCV 98 H MCH MCHC RDW 16.2 H Lymph % (Auto) 7.9 L [place] % (Auto) Eos % (Auto) Lymph # (Auto) 0.9 L [place] # (Auto) Eos # (Auto) Baso # (Auto) Seg Neutrophils % 85.3 H Seg Neuts % (Manual) Lymphocytes % (Manual) Seg Neutrophils # 9.2 H Seg Neutrophils # Man Lymphocytes # (Manual) D-Dimer ABG pH POC ABG pCO2 POC ABG pO2 ABG pO2 ABG HCO3 ABG O2 Saturation ABG Base Excess ABG Oxyhemoglobin ABG Sodium ABG Chloride ABG Glucose Oxyhemoglobin Carboxyhemoglobin Sodium Potassium Chloride 93.9 L Carbon Dioxide 44 H* BUN Creatinine < 0.2 L Glucose 149 H POC Glucose 131 H Hemoglobin A1c Magnesium Ferritin AST ALT Alkaline Phosphatase Lactate Dehydrogenase C-Reactive Protein Total Protein Albumin Arterial Blood Glucose Coronavirus (PCR) 07/23/21 07/23/21 07/23/21 07:20 11:34 16:11 WBC MCV MCH MCHC RDW Lymph % (Auto) [place] % (Auto) Eos % (Auto) Lymph # (Auto) [place] # (Auto) Eos # (Auto) Baso # (Auto) Seg Neutrophils % Seg Neuts % (Manual) Lymphocytes % (Manual) Seg Neutrophils # Seg Neutrophils # Man Lymphocytes # (Manual) D-Dimer ABG pH POC ABG pCO2 POC ABG pO2 ABG pO2 ABG HCO3 ABG O2 Saturation ABG Base Excess ABG Oxyhemoglobin ABG Sodium ABG Chloride ABG Glucose Oxyhemoglobin Carboxyhemoglobin Sodium Potassium Chloride Carbon Dioxide BUN Creatinine Glucose POC Glucose 116 H 172 H 110 H Hemoglobin A1c Magnesium Ferritin AST ALT Alkaline Phosphatase Lactate Dehydrogenase C-Reactive Protein Total Protein Albumin Arterial Blood Glucose Coronavirus (PCR) 07/23/21 07/23/21 07/24/21 18:11 21:33 04:10 WBC MCV MCH MCHC RDW Lymph % (Auto) [place] % (Auto) Eos % (Auto) Lymph # (Auto) [place] # (Auto) Eos # (Auto) Baso # (Auto) Seg Neutrophils % Seg Neuts % (Manual) Lymphocytes % (Manual) Seg Neutrophils # Seg Neutrophils # Man Lymphocytes # (Manual) D-Dimer ABG pH POC ABG pCO2 78.3 H POC ABG pO2 80.7 L ABG pO2 ABG HCO3 ABG O2 Saturation ABG Base Excess ABG Oxyhemoglobin ABG Sodium 134.9 L ABG Chloride 89.0 L ABG Glucose 200 H Oxyhemoglobin Carboxyhemoglobin Sodium Potassium 3.5 L D Chloride 92.4 L Carbon Dioxide 42 H* BUN Creatinine < 0.2 L Glucose 123 H POC Glucose 108 H Hemoglobin A1c Magnesium Ferritin AST ALT Alkaline Phosphatase Lactate Dehydrogenase C-Reactive Protein Total Protein Albumin Arterial Blood Glucose 200 H Coronavirus (PCR) 07/24/21 07/24/21 07/24/21 11:01 16:56 22:06 WBC MCV MCH MCHC RDW Lymph % (Auto) [place] % (Auto) Eos % (Auto) Lymph # (Auto) [place] # (Auto) Eos # (Auto) Baso # (Auto) Seg Neutrophils % Seg Neuts % (Manual) Lymphocytes % (Manual) Seg Neutrophils # Seg Neutrophils # Man Lymphocytes # (Manual) D-Dimer ABG pH POC ABG pCO2 POC ABG pO2 ABG pO2 ABG HCO3 ABG O2 Saturation ABG Base Excess ABG Oxyhemoglobin ABG Sodium ABG Chloride ABG Glucose Oxyhemoglobin Carboxyhemoglobin Sodium Potassium Chloride Carbon Dioxide BUN Creatinine Glucose POC Glucose 171 H 111 H 136 H Hemoglobin A1c Magnesium Ferritin AST ALT Alkaline Phosphatase Lactate Dehydrogenase C-Reactive Protein Total Protein Albumin Arterial Blood Glucose Coronavirus (PCR) 07/25/21 07/25/21 07/25/21 07:40 10:59 11:58 WBC MCV MCH MCHC RDW Lymph % (Auto) [place] % (Auto) Eos % (Auto) Lymph # (Auto) [place] # (Auto) Eos # (Auto) Baso # (Auto) Seg Neutrophils % Seg Neuts % (Manual) Lymphocytes % (Manual) Seg Neutrophils # Seg Neutrophils # Man Lymphocytes # (Manual) D-Dimer ABG pH POC ABG pCO2 POC ABG pO2 ABG pO2 ABG HCO3 ABG O2 Saturation ABG Base Excess ABG Oxyhemoglobin ABG Sodium ABG Chloride ABG Glucose Oxyhemoglobin Carboxyhemoglobin Sodium Potassium Chloride 88.6 L Carbon Dioxide 43 H* BUN Creatinine 0.2 L Glucose 180 H POC Glucose 120 H 153 H Hemoglobin A1c Magnesium Ferritin AST ALT Alkaline Phosphatase Lactate Dehydrogenase C-Reactive Protein Total Protein Albumin Arterial Blood Glucose Coronavirus (PCR) 07/25/21 07/25/21 07/26/21 16:03 20:18 09:56 WBC MCV MCH MCHC RDW Lymph % (Auto) [place] % (Auto) Eos % (Auto) Lymph # (Auto) [place] # (Auto) Eos # (Auto) Baso # (Auto) Seg Neutrophils % Seg Neuts % (Manual) Lymphocytes % (Manual) Seg Neutrophils # Seg Neutrophils # Man Lymphocytes # (Manual) D-Dimer ABG pH POC ABG pCO2 POC ABG pO2 ABG pO2 ABG HCO3 ABG O2 Saturation ABG Base Excess ABG Oxyhemoglobin ABG Sodium ABG Chloride ABG Glucose Oxyhemoglobin Carboxyhemoglobin Sodium Potassium Chloride 91.3 L Carbon Dioxide 45 H* BUN Creatinine < 0.2 L Glucose 128 H POC Glucose 143 H 133 H Hemoglobin A1c Magnesium Ferritin AST ALT Alkaline Phosphatase Lactate Dehydrogenase C-Reactive Protein Total Protein Albumin 3.2 L Arterial Blood Glucose Coronavirus (PCR) 07/26/21 07/26/21 07/27/21 17:56 21:24 07:10 WBC MCV MCH MCHC RDW Lymph % (Auto) [place] % (Auto) Eos % (Auto) Lymph # (Auto) [place] # (Auto) Eos # (Auto) Baso # (Auto) Seg Neutrophils % Seg Neuts % (Manual) Lymphocytes % (Manual) Seg Neutrophils # Seg Neutrophils # Man Lymphocytes # (Manual) D-Dimer ABG pH POC ABG pCO2 POC ABG pO2 ABG pO2 ABG HCO3 ABG O2 Saturation ABG Base Excess ABG Oxyhemoglobin ABG Sodium ABG Chloride ABG Glucose Oxyhemoglobin Carboxyhemoglobin Sodium Potassium Chloride Carbon Dioxide BUN Creatinine Glucose POC Glucose 170 H 122 H 119 H Hemoglobin A1c Magnesium Ferritin AST ALT Alkaline Phosphatase Lactate Dehydrogenase C-Reactive Protein Total Protein Albumin Arterial Blood Glucose Coronavirus (PCR) 07/27/21 07/27/21 07/28/21 11:44 21:31 07:30 WBC MCV MCH MCHC RDW Lymph % (Auto) [place] % (Auto) Eos % (Auto) Lymph # (Auto) [place] # (Auto) Eos # (Auto) Baso # (Auto) Seg Neutrophils % Seg Neuts % (Manual) Lymphocytes % (Manual) Seg Neutrophils # Seg Neutrophils # Man Lymphocytes # (Manual) D-Dimer ABG pH POC ABG pCO2 POC ABG pO2 ABG pO2 ABG HCO3 ABG O2 Saturation ABG Base Excess ABG Oxyhemoglobin ABG Sodium ABG Chloride ABG Glucose Oxyhemoglobin Carboxyhemoglobin Sodium Potassium 3.4 L D Chloride 91.4 L Carbon Dioxide 39 H BUN Creatinine < 0.2 L Glucose 140 H POC Glucose 176 H 162 H Hemoglobin A1c Magnesium Ferritin AST ALT Alkaline Phosphatase Lactate Dehydrogenase C-Reactive Protein Total Protein Albumin Arterial Blood Glucose Coronavirus (PCR) 07/28/21 07/28/21 07/28/21 08:43 12:25 16:40 WBC MCV MCH MCHC RDW Lymph % (Auto) [place] % (Auto) Eos % (Auto) Lymph # (Auto) [place] # (Auto) Eos # (Auto) Baso # (Auto) Seg Neutrophils % Seg Neuts % (Manual) Lymphocytes % (Manual) Seg Neutrophils # Seg Neutrophils # Man Lymphocytes # (Manual) D-Dimer ABG pH POC ABG pCO2 POC ABG pO2 ABG pO2 ABG HCO3 ABG O2 Saturation ABG Base Excess ABG Oxyhemoglobin ABG Sodium ABG Chloride ABG Glucose Oxyhemoglobin Carboxyhemoglobin Sodium Potassium Chloride Carbon Dioxide BUN Creatinine Glucose POC Glucose 122 H 162 H 234 H Hemoglobin A1c Magnesium Ferritin AST ALT Alkaline Phosphatase Lactate Dehydrogenase C-Reactive Protein Total Protein Albumin Arterial Blood Glucose Coronavirus (PCR) 07/28/21 07/29/21 07/29/21 21:27 04:40 09:51 WBC MCV MCH MCHC RDW Lymph % (Auto) [place] % (Auto) Eos % (Auto) Lymph # (Auto) [place] # (Auto) Eos # (Auto) Baso # (Auto) Seg Neutrophils % Seg Neuts % (Manual) Lymphocytes % (Manual) Seg Neutrophils # Seg Neutrophils # Man Lymphocytes # (Manual) D-Dimer ABG pH POC ABG pCO2 POC ABG pO2 ABG pO2 ABG HCO3 ABG O2 Saturation ABG Base Excess ABG Oxyhemoglobin ABG Sodium ABG Chloride ABG Glucose Oxyhemoglobin Carboxyhemoglobin Sodium Potassium 3.4 L Chloride 92.3 L Carbon Dioxide 40 H BUN Creatinine < 0.2 L Glucose 125 H POC Glucose 155 H 112 H Hemoglobin A1c Magnesium Ferritin AST ALT Alkaline Phosphatase Lactate Dehydrogenase C-Reactive Protein Total Protein Albumin Arterial Blood Glucose Coronavirus (PCR) 07/29/21 07/29/21 07/29/21 12:03 16:39 21:28 WBC MCV MCH MCHC RDW Lymph % (Auto) [place] % (Auto) Eos % (Auto) Lymph # (Auto) [place] # (Auto) Eos # (Auto) Baso # (Auto) Seg Neutrophils % Seg Neuts % (Manual) Lymphocytes % (Manual) Seg Neutrophils # Seg Neutrophils # Man Lymphocytes # (Manual) D-Dimer ABG pH POC ABG pCO2 POC ABG pO2 ABG pO2 ABG HCO3 ABG O2 Saturation ABG Base Excess ABG Oxyhemoglobin ABG Sodium ABG Chloride ABG Glucose Oxyhemoglobin Carboxyhemoglobin Sodium Potassium Chloride Carbon Dioxide BUN Creatinine Glucose POC Glucose 188 H 141 H 130 H Hemoglobin A1c Magnesium Ferritin AST ALT Alkaline Phosphatase Lactate Dehydrogenase C-Reactive Protein Total Protein Albumin Arterial Blood Glucose Coronavirus (PCR) 07/30/21 07/30/21 07/30/21 08:37 11:56 22:25 WBC MCV MCH MCHC RDW Lymph % (Auto) [place] % (Auto) Eos % (Auto) Lymph # (Auto) [place] # (Auto) Eos # (Auto) Baso # (Auto) Seg Neutrophils % Seg Neuts % (Manual) Lymphocytes % (Manual) Seg Neutrophils # Seg Neutrophils # Man Lymphocytes # (Manual) D-Dimer ABG pH POC ABG pCO2 POC ABG pO2 ABG pO2 ABG HCO3 ABG O2 Saturation ABG Base Excess ABG Oxyhemoglobin ABG Sodium ABG Chloride ABG Glucose Oxyhemoglobin Carboxyhemoglobin Sodium Potassium Chloride Carbon Dioxide BUN Creatinine Glucose POC Glucose 133 H 156 H 118 H Hemoglobin A1c Magnesium Ferritin AST ALT Alkaline Phosphatase Lactate Dehydrogenase C-Reactive Protein Total Protein Albumin Arterial Blood Glucose Coronavirus (PCR) 07/31/21 07/31/21 07/31/21 06:43 11:55 16:39 WBC MCV MCH MCHC RDW Lymph % (Auto) [place] % (Auto) Eos % (Auto) Lymph # (Auto) [place] # (Auto) Eos # (Auto) Baso # (Auto) Seg Neutrophils % Seg Neuts % (Manual) Lymphocytes % (Manual) Seg Neutrophils # Seg Neutrophils # Man Lymphocytes # (Manual) D-Dimer ABG pH POC ABG pCO2 POC ABG pO2 ABG pO2 ABG HCO3 ABG O2 Saturation ABG Base Excess ABG Oxyhemoglobin ABG Sodium ABG Chloride ABG Glucose Oxyhemoglobin Carboxyhemoglobin Sodium Potassium Chloride Carbon Dioxide BUN Creatinine Glucose POC Glucose 115 H 114 H 185 H Hemoglobin A1c Magnesium Ferritin AST ALT Alkaline Phosphatase Lactate Dehydrogenase C-Reactive Protein Total Protein Albumin Arterial Blood Glucose Coronavirus (PCR) 07/31/21 08/01/21 08/01/21 23:22 11:35 15:34 WBC MCV MCH MCHC RDW Lymph % (Auto) [place] % (Auto) Eos % (Auto) Lymph # (Auto) [place] # (Auto) Eos # (Auto) Baso # (Auto) Seg Neutrophils % Seg Neuts % (Manual) Lymphocytes % (Manual) Seg Neutrophils # Seg Neutrophils # Man Lymphocytes # (Manual) D-Dimer ABG pH POC ABG pCO2 POC ABG pO2 ABG pO2 ABG HCO3 ABG O2 Saturation ABG Base Excess ABG Oxyhemoglobin ABG Sodium ABG Chloride ABG Glucose Oxyhemoglobin Carboxyhemoglobin Sodium Potassium Chloride Carbon Dioxide BUN Creatinine Glucose POC Glucose 213 H 122 H 142 H Hemoglobin A1c Magnesium Ferritin AST ALT Alkaline Phosphatase Lactate Dehydrogenase C-Reactive Protein Total Protein Albumin Arterial Blood Glucose Coronavirus (PCR) 08/01/21 08/02/21 08/02/21 22:15 07:41 11:58 WBC MCV MCH MCHC RDW Lymph % (Auto) [place] % (Auto) Eos % (Auto) Lymph # (Auto) [place] # (Auto) Eos # (Auto) Baso # (Auto) Seg Neutrophils % Seg Neuts % (Manual) Lymphocytes % (Manual) Seg Neutrophils # Seg Neutrophils # Man Lymphocytes # (Manual) D-Dimer ABG pH POC ABG pCO2 POC ABG pO2 ABG pO2 ABG HCO3 ABG O2 Saturation ABG Base Excess ABG Oxyhemoglobin ABG Sodium ABG Chloride ABG Glucose Oxyhemoglobin Carboxyhemoglobin Sodium Potassium Chloride Carbon Dioxide BUN Creatinine Glucose POC Glucose 121 H 109 H 136 H Hemoglobin A1c Magnesium Ferritin AST ALT Alkaline Phosphatase Lactate Dehydrogenase C-Reactive Protein Total Protein Albumin Arterial Blood Glucose Coronavirus (PCR) 08/02/21 08/03/21 08/03/21 21:19 07:47 11:18 WBC MCV MCH MCHC RDW Lymph % (Auto) [place] % (Auto) Eos % (Auto) Lymph # (Auto) [place] # (Auto) Eos # (Auto) Baso # (Auto) Seg Neutrophils % Seg Neuts % (Manual) Lymphocytes % (Manual) Seg Neutrophils # Seg Neutrophils # Man Lymphocytes # (Manual) D-Dimer ABG pH POC ABG pCO2 POC ABG pO2 ABG pO2 ABG HCO3 ABG O2 Saturation ABG Base Excess ABG Oxyhemoglobin ABG Sodium ABG Chloride ABG Glucose Oxyhemoglobin Carboxyhemoglobin Sodium Potassium Chloride Carbon Dioxide BUN Creatinine Glucose POC Glucose 159 H 111 H 202 H Hemoglobin A1c Magnesium Ferritin AST ALT Alkaline Phosphatase Lactate Dehydrogenase C-Reactive Protein Total Protein Albumin Arterial Blood Glucose Coronavirus (PCR) 08/03/21 08/03/21 08/04/21 16:47 21:26 07:57 WBC MCV MCH MCHC RDW Lymph % (Auto) [place] % (Auto) Eos % (Auto) Lymph # (Auto) [place] # (Auto) Eos # (Auto) Baso # (Auto) Seg Neutrophils % Seg Neuts % (Manual) Lymphocytes % (Manual) Seg Neutrophils # Seg Neutrophils # Man Lymphocytes # (Manual) D-Dimer ABG pH POC ABG pCO2 POC ABG pO2 ABG pO2 ABG HCO3 ABG O2 Saturation ABG Base Excess ABG Oxyhemoglobin ABG Sodium ABG Chloride ABG Glucose Oxyhemoglobin Carboxyhemoglobin Sodium Potassium Chloride Carbon Dioxide BUN Creatinine Glucose POC Glucose 133 H 148 H 129 H Hemoglobin A1c Magnesium Ferritin AST ALT Alkaline Phosphatase Lactate Dehydrogenase C-Reactive Protein Total Protein Albumin Arterial Blood Glucose Coronavirus (PCR) 08/04/21 08/04/21 08/04/21 08:05 11:42 16:53 WBC MCV MCH MCHC RDW Lymph % (Auto) [place] % (Auto) Eos % (Auto) Lymph # (Auto) [place] # (Auto) Eos # (Auto) Baso # (Auto) Seg Neutrophils % Seg Neuts % (Manual) Lymphocytes % (Manual) Seg Neutrophils # Seg Neutrophils # Man Lymphocytes # (Manual) D-Dimer ABG pH POC ABG pCO2 POC ABG pO2 ABG pO2 ABG HCO3 ABG O2 Saturation ABG Base Excess ABG Oxyhemoglobin ABG Sodium ABG Chloride ABG Glucose Oxyhemoglobin Carboxyhemoglobin Sodium Potassium Chloride Carbon Dioxide BUN Creatinine Glucose POC Glucose 145 H 187 H 112 H Hemoglobin A1c Magnesium Ferritin AST ALT Alkaline Phosphatase Lactate Dehydrogenase C-Reactive Protein Total Protein Albumin Arterial Blood Glucose Coronavirus (PCR) 08/04/21 08/05/21 08/05/21 21:27 07:35 11:19 WBC MCV MCH MCHC RDW Lymph % (Auto) [place] % (Auto) Eos % (Auto) Lymph # (Auto) [place] # (Auto) Eos # (Auto) Baso # (Auto) Seg Neutrophils % Seg Neuts % (Manual) Lymphocytes % (Manual) Seg Neutrophils # Seg Neutrophils # Man Lymphocytes # (Manual) D-Dimer ABG pH POC ABG pCO2 POC ABG pO2 ABG pO2 ABG HCO3 ABG O2 Saturation ABG Base Excess ABG Oxyhemoglobin ABG Sodium ABG Chloride ABG Glucose Oxyhemoglobin Carboxyhemoglobin Sodium Potassium Chloride Carbon Dioxide BUN Creatinine Glucose POC Glucose 189 H 146 H 244 H Hemoglobin A1c Magnesium Ferritin AST ALT Alkaline Phosphatase Lactate Dehydrogenase C-Reactive Protein Total Protein Albumin Arterial Blood Glucose Coronavirus (PCR) 08/05/21 08/06/21 08/06/21 22:16 07:29 11:16 WBC MCV MCH MCHC RDW Lymph % (Auto) [place] % (Auto) Eos % (Auto) Lymph # (Auto) [place] # (Auto) Eos # (Auto) Baso # (Auto) Seg Neutrophils % Seg Neuts % (Manual) Lymphocytes % (Manual) Seg Neutrophils # Seg Neutrophils # Man Lymphocytes # (Manual) D-Dimer ABG pH POC ABG pCO2 POC ABG pO2 ABG pO2 ABG HCO3 ABG O2 Saturation ABG Base Excess ABG Oxyhemoglobin ABG Sodium ABG Chloride ABG Glucose Oxyhemoglobin Carboxyhemoglobin Sodium Potassium Chloride Carbon Dioxide BUN Creatinine Glucose POC Glucose 122 H 128 H 228 H Hemoglobin A1c Magnesium Ferritin AST ALT Alkaline Phosphatase Lactate Dehydrogenase C-Reactive Protein Total Protein Albumin Arterial Blood Glucose Coronavirus (PCR) 08/06/21 08/07/21 08/07/21 21:13 07:17 11:54 WBC MCV MCH MCHC RDW Lymph % (Auto) [place] % (Auto) Eos % (Auto) Lymph # (Auto) [place] # (Auto) Eos # (Auto) Baso # (Auto) Seg Neutrophils % Seg Neuts % (Manual) Lymphocytes % (Manual) Seg Neutrophils # Seg Neutrophils # Man Lymphocytes # (Manual) D-Dimer ABG pH POC ABG pCO2 POC ABG pO2 ABG pO2 ABG HCO3 ABG O2 Saturation ABG Base Excess ABG Oxyhemoglobin ABG Sodium ABG Chloride ABG Glucose Oxyhemoglobin Carboxyhemoglobin Sodium Potassium Chloride Carbon Dioxide BUN Creatinine Glucose POC Glucose 198 H 134 H 107 H Hemoglobin A1c Magnesium Ferritin AST ALT Alkaline Phosphatase Lactate Dehydrogenase C-Reactive Protein Total Protein Albumin Arterial Blood Glucose Coronavirus (PCR) 08/07/21 08/07/21 08/08/21 16:26 21:15 04:51 WBC MCV MCH MCHC RDW Lymph % (Auto) [place] % (Auto) Eos % (Auto) Lymph # (Auto) [place] # (Auto) Eos # (Auto) Baso # (Auto) Seg Neutrophils % Seg Neuts % (Manual) Lymphocytes % (Manual) Seg Neutrophils # Seg Neutrophils # Man Lymphocytes # (Manual) D-Dimer ABG pH POC ABG pCO2 POC ABG pO2 ABG pO2 ABG HCO3 ABG O2 Saturation ABG Base Excess ABG Oxyhemoglobin ABG Sodium ABG Chloride ABG Glucose Oxyhemoglobin Carboxyhemoglobin Sodium Potassium Chloride 92.9 L Carbon Dioxide 39 H BUN Creatinine < 0.2 L Glucose 105 H POC Glucose 144 H 228 H Hemoglobin A1c Magnesium Ferritin AST ALT Alkaline Phosphatase Lactate Dehydrogenase C-Reactive Protein Total Protein Albumin Arterial Blood Glucose Coronavirus (PCR) 08/08/21 08/08/21 08/08/21 11:40 17:09 21:22 WBC MCV MCH MCHC RDW Lymph % (Auto) [place] % (Auto) Eos % (Auto) Lymph # (Auto) [place] # (Auto) Eos # (Auto) Baso # (Auto) Seg Neutrophils % Seg Neuts % (Manual) Lymphocytes % (Manual) Seg Neutrophils # Seg Neutrophils # Man Lymphocytes # (Manual) D-Dimer ABG pH POC ABG pCO2 POC ABG pO2 ABG pO2 ABG HCO3 ABG O2 Saturation ABG Base Excess ABG Oxyhemoglobin ABG Sodium ABG Chloride ABG Glucose Oxyhemoglobin Carboxyhemoglobin Sodium Potassium Chloride Carbon Dioxide BUN Creatinine Glucose POC Glucose 137 H 137 H 152 H Hemoglobin A1c Magnesium Ferritin AST ALT Alkaline Phosphatase Lactate Dehydrogenase C-Reactive Protein Total Protein Albumin Arterial Blood Glucose Coronavirus (PCR) 08/09/21 08/09/21 08/09/21 07:42 12:26 16:41 WBC MCV MCH MCHC RDW Lymph % (Auto) [place] % (Auto) Eos % (Auto) Lymph # (Auto) [place] # (Auto) Eos # (Auto) Baso # (Auto) Seg Neutrophils % Seg Neuts % (Manual) Lymphocytes % (Manual) Seg Neutrophils # Seg Neutrophils # Man Lymphocytes # (Manual) D-Dimer ABG pH POC ABG pCO2 POC ABG pO2 ABG pO2 ABG HCO3 ABG O2 Saturation ABG Base Excess ABG Oxyhemoglobin ABG Sodium ABG Chloride ABG Glucose Oxyhemoglobin Carboxyhemoglobin Sodium Potassium Chloride Carbon Dioxide BUN Creatinine Glucose POC Glucose 120 H 132 H 116 H Hemoglobin A1c Magnesium Ferritin AST ALT Alkaline Phosphatase Lactate Dehydrogenase C-Reactive Protein Total Protein Albumin Arterial Blood Glucose Coronavirus (PCR) 08/09/21 08/10/21 08/10/21 21:13 07:41 11:33 WBC MCV MCH MCHC RDW Lymph % (Auto) [place] % (Auto) Eos % (Auto) Lymph # (Auto) [place] # (Auto) Eos # (Auto) Baso # (Auto) Seg Neutrophils % Seg Neuts % (Manual) Lymphocytes % (Manual) Seg Neutrophils # Seg Neutrophils # Man Lymphocytes # (Manual) D-Dimer ABG pH POC ABG pCO2 POC ABG pO2 ABG pO2 ABG HCO3 ABG O2 Saturation ABG Base Excess ABG Oxyhemoglobin ABG Sodium ABG Chloride ABG Glucose Oxyhemoglobin Carboxyhemoglobin Sodium Potassium Chloride Carbon Dioxide BUN Creatinine Glucose POC Glucose 205 H 125 H 125 H Hemoglobin A1c Magnesium Ferritin AST ALT Alkaline Phosphatase Lactate Dehydrogenase C-Reactive Protein Total Protein Albumin Arterial Blood Glucose Coronavirus (PCR) 08/10/21 08/10/21 08/11/21 15:21 21:07 07:22 WBC MCV MCH MCHC RDW Lymph % (Auto) [place] % (Auto) Eos % (Auto) Lymph # (Auto) [place] # (Auto) Eos # (Auto) Baso # (Auto) Seg Neutrophils % Seg Neuts % (Manual) Lymphocytes % (Manual) Seg Neutrophils # Seg Neutrophils # Man Lymphocytes # (Manual) D-Dimer ABG pH POC ABG pCO2 POC ABG pO2 ABG pO2 ABG HCO3 ABG O2 Saturation ABG Base Excess ABG Oxyhemoglobin ABG Sodium ABG Chloride ABG Glucose Oxyhemoglobin Carboxyhemoglobin Sodium Potassium Chloride Carbon Dioxide BUN Creatinine Glucose POC Glucose 188 H 177 H 123 H Hemoglobin A1c Magnesium Ferritin AST ALT Alkaline Phosphatase Lactate Dehydrogenase C-Reactive Protein Total Protein Albumin Arterial Blood Glucose Coronavirus (PCR) 08/11/21 08/11/21 08/11/21 11:42 15:43 21:34 WBC MCV MCH MCHC RDW Lymph % (Auto) [place] % (Auto) Eos % (Auto) Lymph # (Auto) [place] # (Auto) Eos # (Auto) Baso # (Auto) Seg Neutrophils % Seg Neuts % (Manual) Lymphocytes % (Manual) Seg Neutrophils # Seg Neutrophils # Man Lymphocytes # (Manual) D-Dimer ABG pH POC ABG pCO2 POC ABG pO2 ABG pO2 ABG HCO3 ABG O2 Saturation ABG Base Excess ABG Oxyhemoglobin ABG Sodium ABG Chloride ABG Glucose Oxyhemoglobin Carboxyhemoglobin Sodium Potassium Chloride Carbon Dioxide BUN Creatinine Glucose POC Glucose 182 H 182 H 112 H Hemoglobin A1c Magnesium Ferritin AST ALT Alkaline Phosphatase Lactate Dehydrogenase C-Reactive Protein Total Protein Albumin Arterial Blood Glucose Coronavirus (PCR) 08/12/21 08/12/21 08/12/21 07:49 12:03 17:06 WBC MCV MCH MCHC RDW Lymph % (Auto) [place] % (Auto) Eos % (Auto) Lymph # (Auto) [place] # (Auto) Eos # (Auto) Baso # (Auto) Seg Neutrophils % Seg Neuts % (Manual) Lymphocytes % (Manual) Seg Neutrophils # Seg Neutrophils # Man Lymphocytes # (Manual) D-Dimer ABG pH POC ABG pCO2 POC ABG pO2 ABG pO2 ABG HCO3 ABG O2 Saturation ABG Base Excess ABG Oxyhemoglobin ABG Sodium ABG Chloride ABG Glucose Oxyhemoglobin Carboxyhemoglobin Sodium Potassium Chloride Carbon Dioxide BUN Creatinine Glucose POC Glucose 151 H 154 H 106 H Hemoglobin A1c Magnesium Ferritin AST ALT Alkaline Phosphatase Lactate Dehydrogenase C-Reactive Protein Total Protein Albumin Arterial Blood Glucose Coronavirus (PCR) 08/12/21 08/13/21 08/13/21 21:50 07:31 11:27 WBC MCV MCH MCHC RDW Lymph % (Auto) [place] % (Auto) Eos % (Auto) Lymph # (Auto) [place] # (Auto) Eos # (Auto) Baso # (Auto) Seg Neutrophils % Seg Neuts % (Manual) Lymphocytes % (Manual) Seg Neutrophils # Seg Neutrophils # Man Lymphocytes # (Manual) D-Dimer ABG pH POC ABG pCO2 POC ABG pO2 ABG pO2 ABG HCO3 ABG O2 Saturation ABG Base Excess ABG Oxyhemoglobin ABG Sodium ABG Chloride ABG Glucose Oxyhemoglobin Carboxyhemoglobin Sodium Potassium Chloride Carbon Dioxide BUN Creatinine Glucose POC Glucose 160 H 118 H 177 H Hemoglobin A1c Magnesium Ferritin AST ALT Alkaline Phosphatase Lactate Dehydrogenase C-Reactive Protein Total Protein Albumin Arterial Blood Glucose Coronavirus (PCR) 08/13/21 08/13/21 08/14/21 16:21 20:59 07:16 WBC MCV MCH MCHC RDW Lymph % (Auto) [place] % (Auto) Eos % (Auto) Lymph # (Auto) [place] # (Auto) Eos # (Auto) Baso # (Auto) Seg Neutrophils % Seg Neuts % (Manual) Lymphocytes % (Manual) Seg Neutrophils # Seg Neutrophils # Man Lymphocytes # (Manual) D-Dimer ABG pH POC ABG pCO2 POC ABG pO2 ABG pO2 ABG HCO3 ABG O2 Saturation ABG Base Excess ABG Oxyhemoglobin ABG Sodium ABG Chloride ABG Glucose Oxyhemoglobin Carboxyhemoglobin Sodium Potassium Chloride Carbon Dioxide BUN Creatinine Glucose POC Glucose 116 H 140 H 109 H Hemoglobin A1c Magnesium Ferritin AST ALT Alkaline Phosphatase Lactate Dehydrogenase C-Reactive Protein Total Protein Albumin Arterial Blood Glucose Coronavirus (PCR) 08/14/21 08/14/21 08/14/21 11:13 16:30 21:11 WBC MCV MCH MCHC RDW Lymph % (Auto) [place] % (Auto) Eos % (Auto) Lymph # (Auto) [place] # (Auto) Eos # (Auto) Baso # (Auto) Seg Neutrophils % Seg Neuts % (Manual) Lymphocytes % (Manual) Seg Neutrophils # Seg Neutrophils # Man Lymphocytes # (Manual) D-Dimer ABG pH POC ABG pCO2 POC ABG pO2 ABG pO2 ABG HCO3 ABG O2 Saturation ABG Base Excess ABG Oxyhemoglobin ABG Sodium ABG Chloride ABG Glucose Oxyhemoglobin Carboxyhemoglobin Sodium Potassium Chloride Carbon Dioxide BUN Creatinine Glucose POC Glucose 176 H 117 H 222 H Hemoglobin A1c Magnesium Ferritin AST ALT Alkaline Phosphatase Lactate Dehydrogenase C-Reactive Protein Total Protein Albumin Arterial Blood Glucose Coronavirus (PCR) 08/15/21 08/15/21 08/15/21 07:10 11:11 16:25 WBC MCV MCH MCHC RDW Lymph % (Auto) [place] % (Auto) Eos % (Auto) Lymph # (Auto) [place] # (Auto) Eos # (Auto) Baso # (Auto) Seg Neutrophils % Seg Neuts % (Manual) Lymphocytes % (Manual) Seg Neutrophils # Seg Neutrophils # Man Lymphocytes # (Manual) D-Dimer ABG pH POC ABG pCO2 POC ABG pO2 ABG pO2 ABG HCO3 ABG O2 Saturation ABG Base Excess ABG Oxyhemoglobin ABG Sodium ABG Chloride ABG Glucose Oxyhemoglobin Carboxyhemoglobin Sodium Potassium Chloride Carbon Dioxide BUN Creatinine Glucose POC Glucose 165 H 225 H 157 H Hemoglobin A1c Magnesium Ferritin AST ALT Alkaline Phosphatase Lactate Dehydrogenase C-Reactive Protein Total Protein Albumin Arterial Blood Glucose Coronavirus (PCR) 08/16/21 08/16/21 08/16/21 07:29 11:14 21:03 WBC MCV MCH MCHC RDW Lymph % (Auto) [place] % (Auto) Eos % (Auto) Lymph # (Auto) [place] # (Auto) Eos # (Auto) Baso # (Auto) Seg Neutrophils % Seg Neuts % (Manual) Lymphocytes % (Manual) Seg Neutrophils # Seg Neutrophils # Man Lymphocytes # (Manual) D-Dimer ABG pH POC ABG pCO2 POC ABG pO2 ABG pO2 ABG HCO3 ABG O2 Saturation ABG Base Excess ABG Oxyhemoglobin ABG Sodium ABG Chloride ABG Glucose Oxyhemoglobin Carboxyhemoglobin Sodium Potassium Chloride Carbon Dioxide BUN Creatinine Glucose POC Glucose 177 H 254 H 291 H Hemoglobin A1c Magnesium Ferritin AST ALT Alkaline Phosphatase Lactate Dehydrogenase C-Reactive Protein Total Protein Albumin Arterial Blood Glucose Coronavirus (PCR) 08/17/21 08/17/21 08/17/21 07:50 12:18 17:35 WBC MCV MCH MCHC RDW Lymph % (Auto) [place] % (Auto) Eos % (Auto) Lymph # (Auto) [place] # (Auto) Eos # (Auto) Baso # (Auto) Seg Neutrophils % Seg Neuts % (Manual) Lymphocytes % (Manual) Seg Neutrophils # Seg Neutrophils # Man Lymphocytes # (Manual) D-Dimer ABG pH POC ABG pCO2 POC ABG pO2 ABG pO2 ABG HCO3 ABG O2 Saturation ABG Base Excess ABG Oxyhemoglobin ABG Sodium ABG Chloride ABG Glucose Oxyhemoglobin Carboxyhemoglobin Sodium Potassium Chloride Carbon Dioxide BUN Creatinine Glucose POC Glucose 171 H 236 H 273 H Hemoglobin A1c Magnesium Ferritin AST ALT Alkaline Phosphatase Lactate Dehydrogenase C-Reactive Protein Total Protein Albumin Arterial Blood Glucose Coronavirus (PCR) 08/17/21 08/18/21 08/18/21 21:36 07:27 11:29 WBC MCV MCH MCHC RDW Lymph % (Auto) [place] % (Auto) Eos % (Auto) Lymph # (Auto) [place] # (Auto) Eos # (Auto) Baso # (Auto) Seg Neutrophils % Seg Neuts % (Manual) Lymphocytes % (Manual) Seg Neutrophils # Seg Neutrophils # Man Lymphocytes # (Manual) D-Dimer ABG pH POC ABG pCO2 POC ABG pO2 ABG pO2 ABG HCO3 ABG O2 Saturation ABG Base Excess ABG Oxyhemoglobin ABG Sodium ABG Chloride ABG Glucose Oxyhemoglobin Carboxyhemoglobin Sodium Potassium Chloride Carbon Dioxide BUN Creatinine Glucose POC Glucose 181 H 179 H 210 H Hemoglobin A1c Magnesium Ferritin AST ALT Alkaline Phosphatase Lactate Dehydrogenase C-Reactive Protein Total Protein Albumin Arterial Blood Glucose Coronavirus (PCR) 08/18/21 08/18/21 08/19/21 17:03 21:14 07:17 WBC MCV MCH MCHC RDW Lymph % (Auto) [place] % (Auto) Eos % (Auto) Lymph # (Auto) [place] # (Auto) Eos # (Auto) Baso # (Auto) Seg Neutrophils % Seg Neuts % (Manual) Lymphocytes % (Manual) Seg Neutrophils # Seg Neutrophils # Man Lymphocytes # (Manual) D-Dimer ABG pH POC ABG pCO2 POC ABG pO2 ABG pO2 ABG HCO3 ABG O2 Saturation ABG Base Excess ABG Oxyhemoglobin ABG Sodium ABG Chloride ABG Glucose Oxyhemoglobin Carboxyhemoglobin Sodium Potassium Chloride Carbon Dioxide BUN Creatinine Glucose POC Glucose 255 H 212 H 193 H Hemoglobin A1c Magnesium Ferritin AST ALT Alkaline Phosphatase Lactate Dehydrogenase C-Reactive Protein Total Protein Albumin Arterial Blood Glucose Coronavirus (PCR) 08/19/21 08/19/21 08/19/21 11:23 16:20 21:39 WBC MCV MCH MCHC RDW Lymph % (Auto) [place] % (Auto) Eos % (Auto) Lymph # (Auto) [place] # (Auto) Eos # (Auto) Baso # (Auto) Seg Neutrophils % Seg Neuts % (Manual) Lymphocytes % (Manual) Seg Neutrophils # Seg Neutrophils # Man Lymphocytes # (Manual) D-Dimer ABG pH POC ABG pCO2 POC ABG pO2 ABG pO2 ABG HCO3 ABG O2 Saturation ABG Base Excess ABG Oxyhemoglobin ABG Sodium ABG Chloride ABG Glucose Oxyhemoglobin Carboxyhemoglobin Sodium Potassium Chloride Carbon Dioxide BUN Creatinine Glucose POC Glucose 256 H 173 H 223 H Hemoglobin A1c Magnesium Ferritin AST ALT Alkaline Phosphatase Lactate Dehydrogenase C-Reactive Protein Total Protein Albumin Arterial Blood Glucose Coronavirus (PCR) 08/20/21 08/20/21 08/20/21 07:52 11:18 15:32 WBC MCV MCH MCHC RDW Lymph % (Auto) [place] % (Auto) Eos % (Auto) Lymph # (Auto) [place] # (Auto) Eos # (Auto) Baso # (Auto) Seg Neutrophils % Seg Neuts % (Manual) Lymphocytes % (Manual) Seg Neutrophils # Seg Neutrophils # Man Lymphocytes # (Manual) D-Dimer ABG pH POC ABG pCO2 POC ABG pO2 ABG pO2 ABG HCO3 ABG O2 Saturation ABG Base Excess ABG Oxyhemoglobin ABG Sodium ABG Chloride ABG Glucose Oxyhemoglobin Carboxyhemoglobin Sodium Potassium Chloride Carbon Dioxide BUN Creatinine Glucose POC Glucose 147 H 280 H 243 H Hemoglobin A1c Magnesium Ferritin AST ALT Alkaline Phosphatase Lactate Dehydrogenase C-Reactive Protein Total Protein Albumin Arterial Blood Glucose Coronavirus (PCR) 08/20/21 08/21/21 08/21/21 22:15 08:26 11:58 WBC MCV MCH MCHC RDW Lymph % (Auto) [place] % (Auto) Eos % (Auto) Lymph # (Auto) [place] # (Auto) Eos # (Auto) Baso # (Auto) Seg Neutrophils % Seg Neuts % (Manual) Lymphocytes % (Manual) Seg Neutrophils # Seg Neutrophils # Man Lymphocytes # (Manual) D-Dimer ABG pH POC ABG pCO2 POC ABG pO2 ABG pO2 ABG HCO3 ABG O2 Saturation ABG Base Excess ABG Oxyhemoglobin ABG Sodium ABG Chloride ABG Glucose Oxyhemoglobin Carboxyhemoglobin Sodium Potassium Chloride Carbon Dioxide BUN Creatinine Glucose POC Glucose 215 H 165 H 241 H Hemoglobin A1c Magnesium Ferritin AST ALT Alkaline Phosphatase Lactate Dehydrogenase C-Reactive Protein Total Protein Albumin Arterial Blood Glucose Coronavirus (PCR)
[2021-08-21] MEDS: ENOXAPARIN 40 MG/0.4 ML INJ SUB-Q SCH (22:30)
--- NOTE | 2021-08-22 03:17 | XRay Report ---
XR chest 1V ap INDICATION / CLINICAL INFORMATION: Hypoxemia. COMPARISON: 08/12/2021 FINDINGS: SUPPORT DEVICES: Right upper extremity PICC terminates over the right atrium. HEART /PULMONARY VASCULATURE: Unchanged. LUNGS / PLEURA: Severe bilateral pulmonary airspace opacities are unchanged. No sizable pleural effus ion. No pneumothorax. IMPRESSION: Extensive bilateral parenchymal disease, unchanged. Signer Name: Jonathan Simeon MD Signed: 08/22/2021 3:13 AM Workstation Name: [id number]
[2021-08-22] MEDS: methylPREDNISolone Sod Succinate 125 MG/2 ML INJ IV SCH ×3 (06:29→21:00)
[2021-08-22] MEDS: INSULIN LISPRO 100 UNIT/ML SUB-Q SCH ×4 (08:05→21:00)
[2021-08-22] MEDS: CHOLECALCIFEROL (VIT D3) 1000 UNIT (25 mcg) TAB PO SCH (10:21)
[2021-08-22] MEDS: ALPRAZolam 1 MG TAB PO SCH ×2 (10:21→21:00)
[2021-08-22] MEDS: INSULIN GLARGINE 100 UNITS/ML SUB-Q SCH (10:21)
--- NOTE | 2021-08-22 11:53 | Progress Note ---
Assessment and Plan Assessment and plan: Admit 04/16 from ER 50 YO Female with GERD, Obesity, HLD presents to ED for evaluation. Patient reports "I cannot breathe". Patient states that she has experienced subjective fever, shortness of breath, malaise, body aches, dry cough, and shortness of breath over the past 1 week with progressively worsening symptoms over the same timeframe. EMS was notified and upon arrival the patient was found to be in distress and subsequent transported to [facility] for further care and evaluation of the aforementioned symptoms. The patient was seen and evaluated in the emergency department. All lab and imaging studies reviewed. Patient found to have a pulse oximetry of 86% with exertion on room air which is consistent with acute hypoxemic respiratory failure. Patient with chest x-ray which revealed bilateral pneumonia. Patient admitted to medical floor and initiated him on pneumonia protocol as well as coronavirus protocol. Patient knowledges fever but denies chills, chest pain, palpitation, skin rash, recent ill contacts, or known exposure to COVID-19. Prior admission on 01/21/2017 reviewed. All m edication listed at time of admission has been reconciled. Patient is unvaccinated for coronavirus infection. CXR: Bilateral Pneumonia 04/17: Patient seen and examined, still uncomfortable with Hypoxic respiratory failure and on oxygen, will continue to steroids therapy, start patient on Remdesivir, ID consulted, Pulmonary consult placed. 04/18: Patient seen and examined, she is currently being changed to High flow NC due to worsening HYPOXIA, will transfer to IMCU, Pulmonary and ID following. Will also give a dose of Lasix today. Monitor Inflammatory markers. 04/19: Patient seen and examined still on high flow due to hypoxia. Appears a bit more comfortable today than yesterday. Cough has decreased in frequency. We will continue high dose Dexameathasone to complete 10 days. continue on Remdesivir 200 mg IV q day x 1 followed by 100 mg IV q day x 4 days -Obtain q48-72h inflammatory markers - ferritin, Ddimer, CRP, LDH Will also give lasix daily for the next 3 days and monitor renal function. Family updated. Continue prone positioning as tolerated 04/20: Patient has some desaturation episodes yesterday was placed on BiPAP. Discussed with ICU team for bed availability for patient to be transferred up. Continue prone position as tolerated. 8/8: Patient remains with profound hypoxia secondary to COVID pneumonia. -Continue steroids -Continue remedesir -S/P Actmera 04/22: Patient remains on steroids and remdesivir. ABG shows persistent hypoxia. We will continue current management additional trial of Lasix for the next few days to see if any improvement. Monitor inflammatory markers as needed. Prognosis is guarded remains on high flow 04/23; patient was treated with remdesivir and Actemra. Continue steroid. Patient's prognosis is guarded. 04/24; patient is on steroid. Patient is currently on BiPAP. Prognosis is guarded. Pulmonary is following. Patient was given Lasix and Ativan. 04/25; continue steroid. Patient was on 40 L of high flow oxygen with saturation was 88%. Pulmonary is following. Prognosis is guarded. Patient was given lasix and ativan. 04/26; patient is on BiPAP and Precedex. Prognosis is guarded. 04/27; patient is on BiPAP and Precedex. Patient will finish steroid today and will start on Solu-Medrol tomorrow. Prognosis is guarded. Blood pressure is better today. Hold Lasix. 04/28 patient is on 100 Fio2 via BIPAP. moderately dyspneic, pulmonary note reviewed, lab results reviewed 04/29 no acute events- see systems review above 04/30 no acute events overnight - on airvo today- TPN started -see systems review above 05-01 no acute events overnight- tolerating airvo- see systems review above 05-02 no acute events overnight; tolerating airvo this AM- see systems review above 05/03: Patient remains on full high flow oxygen. No acute events overnight 05/04: Patient remains on BiPAP this morning at 70%. Returning to service Patient initially managed in the ICU and then transfered to the floor 06/25: Patient remains on full oxygen with high flow, encouraged to prone at night time. Spoke to Night nursing staff to ensure assisting the patient Prone. Continue steroid therapy, will discuss with Pulmonary about trying additional lasix. Plan discussed with patient and family. 06/26: Patient already on Lasix daily, Hypokalemia- Replace K. Continue to encourage Proning. Remains on high flow. 06/27: Continue supportive care unfortunately had to go up on her oxygen to 70% FiO2 prognosis remains guarded continue to encourage proning. 10/15: Continue supportive care, Encourage Proning 06/29: Mild hypokalemia noted yesterday will be replaced as it was not corrected yesterday we will recheck BMP in a.m. Continue IV Lasix. Monitor renal function. 06/30: Give additional potassium for better control. Continue supportive care. Continue IV Lasix. Continue to encourage proning again discussed with the patient via pneumatic tool operator. He verbalized understanding 07/01: Brief summary patient seen and examined this morning continues to show improvement FiO2 demand down to 45% on 30 L on high flow. Patient is a 50-year-old male who was admitted with COVID-19 today is day 76 of her hospital stay she was initially managed in the ICU and now has been transferred to the floor. She remains on low-dose steroid therapy following completion of remdesivir and recommended steroid. She is encouraged to continue to prone and the nights that she has done this has shown some improvement. She is still probably a long way from being discharged. Intermittent monitoring off electrolytes as she has had some episode of hyponatremia and hypomagnesemia is recommended. She is concerned about puffiness in her face which is likely steroid-induced I have discussed this with her that it will improve following discontinuation of steroid. In the meantime I have held her Lasix as we have been diuresing her for majority of her stay and this should be reevaluated the next few days to see if she will benefit from further diuresis. Pulmonary is on board 08/20: Return to service today. Remains on high flow oxygen, not tolerating weaning, continue current management Currently undergoing management and awaiting for possible home hospice 08/21: Patient still on high flow and NRB, still severely Hypoxic. Continue supportive care. Prognosis guarded. 08/22: Patient seen and examined, she still remains on 50% high flow and also nonrebreather. Per staff she is refusing therapy have provided counseling to her that this will help her improve. She is also awaiting for hospice discharge which case management is working on. Chest x-ray reviewed shows persistent interstitial infiltrates bilaterally. Acute hypoxic/hypercapneic respiratory failure #Severe ARDS. Suspected possible post Covid pneumonia lung fibrosis. -Unchanged. -refusing BiPAP, currently on HFNC -plan to maintain SpO2 >88% -Had previous treatments with steroid. Was resumed on IV Solu-Medrol on 08/16/2021. -Pulmonology following, assistance appreciated #Metabolic alkalosis Continue monitoring #Heart failure with preserved ejection fraction -TTE: LVEF 55-60% with diastolic dysfunction -will continue to monitor for signs of fluid overload. -On intermittent diuretics. #COVID-19 infection -Has completed treatment. #Type 2 diabetes -Uncontrolled most likely due to steroid -Continue Lantus to 20 SQ daily. Continue sliding scale insulin. #Anxiety -Stable -continue xanax #DVT prophylaxis -Lovenox 40 daily #Deconditioning -Will benefit from SNF after prolonged hospital stay Resolved issues #Sepsis secondary to COVID-19 #Iatrogenic diarrhea #Hypomagnesemia #Hyponatremia #Protein calorie malnutrition #Dysuria #Hypokalemia #Possible UTI #Advanced care planning -Disease education conducted, care plan discussed, diagnoses discussed, prognosis discussed, and patient acknowledges understanding with care plan -Time: +30 minutes Disposition Plan: Continue medical management Total Time Spent with Patient (Minutes): 30 minutes History Interval history: Patient seen and examined, still with shortness of breath, sitting up placed on 50% HIGH FLOW, NRBM Hospitalist Physical - Physical exam Narrative exam: General appearance: Present: no acute distress, well-nourished. - EENT Eyes: Present: PERRL, EOM intact ENT: hearing intact, clear oral mucosa - Neck Neck: Present: supple, normal ROM - Respiratory Respiratory effort: normal Respiratory: bilateral: diminished (On high flow nasal cannula) and NRBM - Cardiovascular Rhythm: regular Heart Sounds: Present: S1 & S2 - Extremities Extremities: no ischemia, pulses intact, pulses symmetrical, No edema, normal t emperature, normal color, Full ROM Peripheral Pulses: within normal limits - Abdominal General gastrointestinal: soft, non-tender, non-distended, normal bowel sounds - Integumentary Integumentary: Present: clear, warm, dry - Psychiatric Psychiatric: appropriate mood/affect, memory intact, cooperative - Neurologic Neurologic: CNII-XII intact, moves all extremities - Constitutional Vitals: Temp Pulse Resp BP Pulse Ox 97.8 F 92 H 26 H 130/70 97 08/22/21 07:32 08/22/21 08:00 08/22/21 08:00 08/22/21 08:00 08/22/21 08:00 General appearance: Present: no acute distress, well-nourished, other (Looks tired) Results - Labs CBC & Chem 7: 07/23/21 04:35 08/08/21 04:51 Labs: Laboratory Last Values WBC 10.8 K/mm3 (4.5-11.0) 07/23/21 04:35 RBC 3.84 M/mm3 (3.65-5.03) 07/23/21 04:35 Hgb 12.1 gm/dl (10.1-14.3) 07/23/21 04:35 Hct 37.6 % (30.3-42.9) 07/23/21 04:35 MCV 98 fl (79-97) H 07/23/21 04:35 MCH 32 pg (28-32) 07/23/21 04:35 MCHC 32 % (30-34) 07/23/21 04:35 RDW 16.2 % (13.2-15.2) H 07/23/21 04:35 Plt Count 367 K/mm3 (140-440) 07/23/21 04:35 Lymph % (Auto) 7.9 % (13.4-35.0) L 07/23/21 04:35 [place] % (Auto) 5.6 % (0.0-7.3) 07/23/21 04:35 Eos % (Auto) 0.8 % (0.0-4.3) 07/23/21 04:35 Baso % (Auto) 0.4 % (0.0-1.8) 07/23/21 04:35 Lymph # (Auto) 0.9 K/mm3 (1.2-5.4) L 07/23/21 04:35 [place] # (Auto) 0.6 K/mm3 (0.0-0.8) 07/23/21 04:35 Eos # (Auto) 0.1 K/mm3 (0.0-0.4) 07/23/21 04:35 Baso # (Auto) 0.0 K/mm3 (0.0-0.1) 07/23/21 04:35 Add Manual Diff Complete 07/09/21 04:45 Total Counted 100 07/09/21 04:45 Seg Neutrophils % 85.3 % (40.0-70.0) H 07/23/21 04:35 Seg Neuts % (Manual) 82.0 % (40.0-70.0) H 07/09/21 04:45 Band Neutrophils % 1.0 % 05/12/21 04:05 Lymphocytes % (Manual) 13.0 % (13.4-35.0) L 07/09/21 04:45 Monocytes % (Manual) 3.0 % (0.0-7.3) 07/09/21 04:45 Eosinophils % (Manual) 2.0 % (0.0-4.3) 07/09/21 04:45 Nucleated RBC % Not Reportable 07/09/21 04:45 Seg Neutrophils # 9.2 K/mm3 (1.8-7.7) H 07/23/21 04:35 Seg Neutrophils # Man 7.8 K/mm3 (1.8-7.7) H 07/09/21 04:45 Band Neutrophils # 0.0 K/mm3 07/09/21 04:45 Lymphocytes # (Manual) 1.2 K/mm3 (1.2-5.4) 07/09/21 04:45 Abs React Lymphs (Man) 0.0 K/mm3 07/09/21 04:45 Monocytes # (Manual) 0.3 K/mm3 (0.0-0.8) 07/09/21 04:45 Eosinophils # (Manual) 0.2 K/mm3 (0.0-0.4) 07/09/21 04:45 Basophils # (Manual) 0.0 K/mm3 (0.0-0.1) 07/09/21 04:45 Metamyelocytes # 0.0 K/mm3 07/09/21 04:45 Myelocytes # 0.0 K/mm3 07/09/21 04:45 Promyelocytes # 0.0 K/mm3 07/09/21 04:45 Blast Cells # 0.0 K/mm3 07/09/21 04:45 WBC Morphology Not Reportable 07/09/21 04:45 Hypersegmented Neuts Not Reportable 07/09/21 04:45 Hyposegmented Neuts Not Reportable 07/09/21 04:45 Hypogranular Neuts Not Reportable 07/09/21 04:45 Smudge Cells Not Reportable 07/09/21 04:45 Toxic Granulation Not Reportable 07/09/21 04:45 Toxic Vacuolation Not Reportable 07/09/21 04:45 Dohle Bodies Not Reportable 07/09/21 04:45 Pelger-Huet Anomaly Not Reportable 07/09/21 04:45 Janelle Rods Not Reportable 07/09/21 04:45 Platelet Estimate Consistent w auto 07/09/21 04:45 Clumped Platelets Not Reportable 07/09/21 04:45 Plt Clumps, EDTA Not Reportable 07/09/21 04:45 Large Platelets Not Reportable 07/09/21 04:45 Giant Platelets Rare 07/09/21 04:45 Platelet Satelliting Not Reportable 07/09/21 04:45 Plt Morphology Comment Not Reportable 07/09/21 04:45 RBC Morphology Not Reportable 07/09/21 04:45 Dimorphic RBCs Not Reportable 07/09/21 04:45 Polychromasia Not Reportable 07/09/21 04:45 Hypochromasia Few 07/09/21 04:45 Poikilocytosis Not Reportable 07/09/21 04:45 Anisocytosis Not Reportable 07/09/21 04:45 Microcytosis Not Reportable 07/09/21 04:45 Macrocytosis Not Reportable 07/09/21 04:45 Spherocytes Not Reportable 07/09/21 04:45 Pappenheimer Bodies Not Reportable 07/09/21 04:45 Sickle Cells Not Reportable 07/09/21 04:45 Target Cells Not Reportable 07/09/21 04:45 Tear Drop Cells Not Reportable 07/09/21 04:45 Ovalocytes Not Reportable 07/09/21 04:45 Stomatocytes 1+ 07/09/21 04:45 Helmet Cells Not Reportable 07/09/21 04:45 [place] Bodies Not Reportable 07/09/21 04:45 [place] Rings Not Reportable 07/09/21 04:45 Crow Cells Not Reportable 07/09/21 04:45 Bite Cells Not Reportable 07/09/21 04:45 Crenated Cell Not Reportable 07/09/21 04:45 Elliptocytes Not Reportable 07/09/21 04:45 Acanthocytes (Spur) Not Reportable 07/09/21 04:45 Rouleaux Not Reportable 07/09/21 04:45 Hemoglobin C Crystals Not Reportable 07/09/21 04:45 Schistocytes Not Reportable 07/09/21 04:45 Malaria parasites Not Reportable 07/09/21 04:45 Justin Bodies Not Reportable 07/09/21 04:45 Hem Pathologist Commnt No 07/09/21 04:45 D-Dimer 638.35 ng/mlDDU (0-234) H 07/09/21 04:45 ABG pH 7.417 (7.320-7.450) 07/23/21 18:11 POC ABG pCO2 78.3 mmHg (32.0-48.0) H 07/23/21 18:11 ABG pCO2 85.7 mm Hg 07/22/21 12:05 POC ABG pO2 80.7 mmHg (83-108) L 07/23/21 18:11 ABG pO2 66.1 mm Hg (80.0-90.0) L 07/22/21 12:05 POC ABG HCO3 49.3 07/23/21 18:11 ABG HCO3 45.0 mmol/L (20.0-26.0) H 07/22/21 12:05 ABG O2 Saturation 96.7 (0-100) 07/23/21 18:11 ABG O2 Content 16.8 (0.0-44) 07/22/21 12:05 POC ABG Base Excess 20.5 07/23/21 18:11 ABG Base Excess 15.2 mmol/L (-2.0-3.0) H 07/22/21 12:05 ABG Hemoglobin 12.6 (12.0-17.5) 07/23/21 18:11 ABG Oxyhemoglobin 95.7 (94-98) 07/23/21 18:11 ABG Carboxyhemoglobin 1.9 % (0.0-5.0) 07/22/21 12:05 ABG Methemoglobin 0.3 (0.0-1.5) 07/23/21 18:11 ABG Sodium 134.9 mmol/L (136.0-145.0) L 07/23/21 18:11 ABG Potassium 3.9 mmol/L (3.40-4.50) 07/23/21 18:11 ABG Chloride 89.0 mmol/L (98-107) L 07/23/21 18:11 ABG Glucose 200 mg/dL (65-95) H 07/23/21 18:11 Oxyhemoglobin 91.9 % (95.0-99.0) L 07/22/21 12:05 Carboxyhemoglobin 0.7 (0.5-1.5) 07/23/21 18:11 FiO2 100 % 07/22/21 12:05 FiO2 % 100.0 07/23/21 18:11 Sodium 140 mmol/L (137-145) 08/08/21 04:51 Potassium 4.1 mmol/L (3.6-5.0) 08/08/21 04:51 Chloride 92.9 mmol/L (98-107) L 08/08/21 04:51 Carbon Dioxide 39 mmol/L (22-30) H 08/08/21 04:51 Anion Gap 12 mmol/L 08/08/21 04:51 BUN 9 mg/dL (7-17) 08/08/21 04:51 Creatinine < 0.2 mg/dL (0.6-1.2) L 08/08/21 04:51 Estimated GFR > 60 ml/min 08/08/21 04:51 BUN/Creatinine Ratio 45 % 08/08/21 04:51 Glucose 105 mg/dL (65-100) H 08/08/21 04:51 POC Glucose 235 mg/dL (70-105) H 08/22/21 11:32 Hemoglobin A1c 8.5 % (4-6) H 04/18/21 07:36 Calcium 9.4 mg/dL (8.4-10.2) 08/08/21 04:51 Phosphorus 3.70 mg/dL (2.5-4.5) 07/23/21 04:35 Magnesium 2.10 mg/dL (1.7-2.3) 07/23/21 04:35 Ferritin 155.9 ng/mL (10.0-200.0) 07/09/21 04:45 Total Bilirubin < 0.20 mg/dL (0.1-1.2) 07/26/21 09:56 AST 23 units/L (5-40) 07/26/21 09:56 ALT 25 units/L (7-56) 07/26/21 09:56 Alkaline Phosphatase 69 units/L (35-129) 07/26/21 09:56 Lactate Dehydrogenase 475 units/L (91-180) H 06/05/21 05:26 C-Reactive Protein 4.30 mg/dL (0.00-1.30) H 07/09/21 04:45 NT-Pro-B Natriuret Pep 59.45 pg/mL (0-450) 07/07/21 13:40 Total Protein 8.1 g/dL (6.3-8.2) 07/26/21 09:56 Albumin 3.2 g/dL (3.9-5) L 07/26/21 09:56 Albumin/Globulin Ratio 0.7 % 07/26/21 09:56 Triglycerides < 9 mg/dL (2-149) 05/03/21 04:30 Procalcitonin < 0.05 ng/mL (<0.15) 05/23/21 09:50 Arterial Blood Glucose 200 mg/dL (65-95) H 07/23/21 18:11 Arterial Blood Ionized Calcium 4.6 mg/dL (4.6-5.3) 07/23/21 18:11 Coronavirus (PCR) Negative (Negative) 07/25/21 Unknown Amos/IV: Voiding Method External Female Catheter Active Medications - Current Medications Current Medications: Generic Name Dose Route Start Last Admin Trade Name Freq PRN Reason Stop Dose Admin Acetaminophen 650 mg 07/02/21 17:48 08/21/21 22:28 Acetaminophen 325 Mg Tab PO 650 mg Q4H PRN Administration Pain, Mild (1-3) Albuterol 2.5 mg 04/16/21 13:39 04/21/21 20:39 Albuterol 2.5 Mg/3 Ml Nebu IH 2.5 mg Q4HRT PRN Administration Shortness Of Breath Alprazolam 1 mg 08/12/21 11:00 08/22/21 10:21 Alprazolam 1 Mg Tab PO 1 mg BID TUTU Administration Calcium Carbonate/Glycine 500 mg 07/24/21 10:43 08/14/21 22:24 Calcium Carbonate 500 Mg Tab Chew PO 500 mg BID PRN Administration reflux Cholecalciferol 1,000 unit 04/17/21 10:00 08/22/21 10:21 Cholecalciferol (Vit D3) 1000 Unit (25 Mcg) Tab PO 1,000 unit QDAY TUTU Administration Enoxaparin Sodium 40 mg 05/19/21 22:00 08/21/21 22:30 Enoxaparin 40 Mg/0.4 Ml Inj SUB-Q 40 mg QDAY@2200 TUTU Administration Protocol Insulin Glargine 10 units 08/17/21 13:33 08/22/21 10:21 Insulin Glargine 100 Units/Ml SUB-Q 10 units DAILY TUTU Administration Insulin Human Lispro 0 unit 05/18/21 12:00 08/22/21 08:05 Insulin Lispro 100 Unit/Ml SUB-Q 3 unit ACHS TUTU Administration Protocol Methylprednisolone Sodium Succinate 125 mg 08/14/21 15:00 08/22/21 06:29 Methylprednisolone Sod Succinate 125 Mg/2 Ml Inj IV 125 mg Q8HR TUTU Administration Ondansetron HCl 4 mg 04/16/21 14:00 05/30/21 10:07 Ondansetron 4 Mg/2 Ml Inj IV 4 mg Q8H PRN Administration Nausea And Vomiting Polyethylene Glycol 17 gm 07/16/21 20:00 08/11/21 11:18 Polyethylene Glycol 3350 17 Gm Powder PO 17 gm QDAY PRN Administration Constipation Sodium Chloride 10 ml 04/16/21 13:39 08/21/21 09:17 Sodium Chloride 0.9% 10 Ml Flush Syringe IV 10 ml PRN PRN Administration LINE FLUSH Nutrition/Malnutrition Assess - Dietary Evaluation Nutrition/Malnutrition Findings: Nutrition Notes Start: 04/23/21 07:41 Freq: Status: Active Protocol: Document 08/09/21 17:26 SAQIB (Rec: 08/09/21 17:30 SAQIB [id number]) Nutrition Notes Initial or Follow up Brief Note Subjective/Other Information RD brief note to set next F/U on 09/12 Nutrition Intervention Follow-Up By: 09/12/21 Additional Comments Continue monitoring food tolerance, %PO intake of meals , Hydration, and BM.
[2021-08-22] MEDS: ENOXAPARIN 40 MG/0.4 ML INJ SUB-Q SCH (21:00)
[2021-08-22] MEDS: ACETAMINOPHEN 325 MG TAB PO PRN (21:21)
[2021-08-23] MEDS: methylPREDNISolone Sod Succinate 125 MG/2 ML INJ IV SCH ×3 (05:09→23:01)
--- NOTE | 2021-08-23 07:37 | Progress Note ---
Assessment and Plan Assessment and plan: -Acute hypoxic/hypercapneic respiratory failure --Severe ARDS. Suspected possible post Covid pneumonia lung fibrosis. Continues to require high flow nasal cannula oxygen 30 L/50% FiO2/O2 sats 97% refusing BiPAP, on 100% nonrebreather , Wean as tolerated. Maintain SpO2 >88% Steroids resumed on IV Solu-Medrol on 08/16/2021. Will maintain high-dose IV Solu-Medrol at 125 mg every 8 hours X-ray chest 08/22/2021: Extensive bilateral parenchymal disease unchanged Discussed with pulmonology Dr. Merida --Metabolic alkalosis Continue monitoring --Heart failure with preserved ejection fraction -TTE: LVEF 55-60% with diastolic dysfunction -will continue to monitor for signs of fluid overload. -On intermittent diuretics. --COVID-19 infection -Has completed treatment. --Type 2 diabetes -Uncontrolled most likely due to steroid -Continue Lantus to 20 SQ daily. Continue sliding scale insulin. --Anxiety -Stable -continue xanax --DVT prophylaxis -Lovenox 40 daily --Deconditioning PT OT when stable Possible SNF placement at discharge Resolved issues #Sepsis secondary to COVID-19 #Iatrogenic diarrhea #Hypomagnesemia #Hyponatremia #Protein calorie malnutrition #Dysuria #Hypokalemia #Possible UTI --Advanced care planning -Disease education conducted, care plan discussed, diagnoses discussed, prognosis discussed, and patient acknowledges understanding with care plan -Time: +30 minutes --Disposition Plan: Continue medical management Total Time Spent with Patient (Minutes): 35 minutes Brief history and daily hospital course; Admitted on 04/16/2021 50 YO Female with GERD, Obesity, HLD presents to ED for evaluation. Patient r eports "I cannot breathe". Patient states that she has experienced subjective fever, shortness of breath, malaise, body aches, dry cough, and shortness of breath over the past 1 week with progressively worsening symptoms over the same timeframe. EMS was notified and upon arrival the patient was found to be in distress and subsequent transported to [facility] for further care and evaluation of the aforementioned symptoms. The patient was seen and evaluated in the emergency department. All lab and imaging studies reviewed. Patient found to have a pulse oximetry of 86% with exertion on room air which is consistent with acute hypoxemic respiratory failure. Patient with chest x-ray which revealed bilateral pneumonia. Patient admitted to medical floor and initiated him on pneumonia protocol as well as coronavirus protocol. Patient knowledges fever but denies chills, chest pain, palpitation, skin rash, recent ill contacts, or known exposure to COVID-19. Prior admission on 01/21/2017 reviewed. All medication listed at time of admission has been reconciled. Patient is unvaccinated for coronavirus infection. CXR: Bilateral Pneumonia 04/17: Patient seen and examined, still uncomfortable with Hypoxic respiratory failure and on oxygen, will continue to steroids therapy, start patient on Re mdesivir, ID consulted, Pulmonary consult placed. 04/18: Patient seen and examined, she is currently being changed to High flow NC due to worsening HYPOXIA, will transfer to IMCU, Pulmonary and ID following. Will also give a dose of Lasix today. Monitor Inflammatory markers. 04/19: Patient seen and examined still on high flow due to hypoxia. Appears a bit more comfortable today than yesterday. Cough has decreased in frequency. We will continue high dose Dexameathasone to complete 10 days. continue on Remdesivir 200 mg IV q day x 1 followed by 100 mg IV q day x 4 days -Obtain q48-72h inflammatory markers - ferritin, Ddimer, CRP, LDH Will also give lasix daily for the next 3 days and monitor renal function. Family updated. Continue prone positioning as tolerated 04/20: Patient has some desaturation episodes yesterday was placed on BiPAP. Discussed with ICU team for bed availability for patient to be transferred up. Continue prone position as tolerated. 04/21: Patient remains with profound hypoxia secondary to COVID pneumonia. -Continue steroids -Continue remedesir -S/P Actmera 04/22: Patient remains on steroids and remdesivir. ABG shows persistent hypoxia. We will continue current management additional trial of Lasix for the next few days to see if any improvement. Monitor inflammatory markers as needed. Prognosis is guarded remains on high flow 04/23; patient was treated with remdesivir and Actemra. Continue steroid. Patient's prognosis is guarded. 04/24; patient is on steroid. Patient is currently on BiPAP. Prognosis is guarded. Pulmonary is following. Patient was given Lasix and Ativan. 04/25; continue steroid. Patient was on 40 L of high flow oxygen with saturation was 88%. Pulmonary is following. Prognosis is guarded. Patient was given lasix and ativan. 04/26; patient is on BiPAP and Precedex. Prognosis is guarded. 04/27; patient is on BiPAP and Precedex. Patient will finish steroid today and will start on Solu-Medrol tomorrow. Prognosis is guarded. Blood pressure is better today. Hold Lasix. 04/28 patient is on 100 Fio2 via BIPAP. moderately dyspneic, pulmonary note reviewed, lab results reviewed 04/29 no acute events- see systems review above 04/30 no acute events overnight - on airvo today- TPN started -see systems review above 05-01 no acute events overnight- tolerating airvo- see systems review above 05-02 no acute events overnight; tolerating airvo this AM- see systems review above 05/03: Patient remains on full high flow oxygen. No acute events overnight 05/04: Patient remains on BiPAP this morning at 70%. Returning to service Patient initially managed in the ICU and then transfered to the floor 06/25: Patient remains on full oxygen with high flow, encouraged to prone at night time. Spoke to Night nursing staff to ensure assisting the patient Prone. Continue steroid therapy, will discuss with Pulmonary about trying additional lasix. Plan discussed with patient and family. 06/26: Patient already on Lasix daily, Hypokalemia- Replace K. Continue to encourage Proning. Remains on high flow. 06/27: Continue supportive care unfortunately had to go up on her oxygen to 70% FiO2 prognosis remains guarded continue to encourage proning. 06/28: Continue supportive care, Encourage Proning 06/29: Mild hypokalemia noted yesterday will be replaced as it was not corrected yesterday we will recheck BMP in a.m. Continue IV Lasix. Monitor renal function. 06/30: Give additional potassium for better control. Continue supportive care. Continue IV Lasix. Continue to encourage proning again discussed with the patient via rental car porter. He verbalized understanding 07/01: Brief summary patient seen and examined this morning continues to show improvement FiO2 demand down to 45% on 30 L on high flow. Patient is a 50-year-old male who was admitted with COVID-19 today is day 76 of her hospital stay she was initially managed in the ICU and now has been transferred to the floor. She remains on low-dose steroid therapy following completion of remdesivir and recommended steroid. She is encouraged to continue to prone and the nights that she has done this has shown some improvement. She is still probably a long way from being discharged. Intermittent monitoring off electrolytes as she has had some episode of hyponatremia and hypomagnesemia is recommended. She is concerned about puffiness in her face which is likely steroid-induced I have discussed this with her that it will improve following discontinuation of steroid. In the meantime I have held her Lasix as we have been diuresing her for majority of her stay and this should be reevaluated the next few days to see if she will benefit from further diuresis. Pulmonary is on board 08/20: Return to service today. Remains on high flow oxygen, not tolerating weaning, continue current management Currently undergoing management and awaiting for possible home hospice 08/21: Patient still on high flow and NRB, still severely Hypoxic. Continue supportive care. Prognosis guarded. 08/22: Patient seen and examined, she still remains on 50% high flow and also nonrebreather. Per staff she is refusing therapy have provided counseling to her that this will help her improve. She is also awaiting for hospice discharge which case management is working on. Chest x-ray reviewed shows persistent interstitial infiltrates bilaterally. 08/23/2011; remains on high flow nasal cannula oxygen 30 L/50% FiO2/O2 sats 97%, patient refusing BiPAP, will continue high-dose IV Solu-Medrol at 125 mg every 8 hours. Discussed with pulmonary critical Dr. Merida History Interval history: I have seen and examined the patient at the bedside in [facility] Patient's chart and medications reviewed Patient remains hypoxic requiring high flow nasal cannula 30 L/50%/97 FiO2 In mild distress Hospitalist Physical - Constitutional Vitals: Temp Pulse Resp BP Pulse Ox 97.2 F L 95 H 27 H 117/61 90 08/23/21 04:36 08/23/21 06:00 08/23/21 06:00 08/23/21 06:00 08/23/21 06:00 General appearance: Present: mild distress, well-nourished, other (Looks tired) - EENT Eyes: Present: PERRL, EOM intact - Neck Neck: Present: supple, normal ROM - Respiratory Respiratory effort: normal Respiratory: bilateral: diminished, negative: rales, rhonchi, wheezing - Cardiovascular Rhythm: regular Heart Sounds: Present: S1 & S2 - Extremities Extremities: no ischemia, No edema - Abdominal General gastrointestinal: soft, non-tender, non-distended, normal bowel sounds - Integumentary Integumentary: Present: clear, warm - Psychiatric Psychiatric: appropriate mood/affect, cooperative - Neurologic Neurologic: CNII-XII intact, moves all extremities Results - Labs CBC & Chem 7: 07/23/21 04:35 08/08/21 04:51 Labs: Laboratory Last Values WBC 10.8 K/mm3 (4.5-11.0) 07/23/21 04:35 RBC 3.84 M/mm3 (3.65-5.03) 07/23/21 04:35 Hgb 12.1 gm/dl (10.1-14.3) 07/23/21 04:35 Hct 37.6 % (30.3-42.9) 07/23/21 04:35 MCV 98 fl (79-97) H 07/23/21 04:35 MCH 32 pg (28-32) 07/23/21 04:35 MCHC 32 % (30-34) 07/23/21 04:35 RDW 16.2 % (13.2-15.2) H 07/23/21 04:35 Plt Count 367 K/mm3 (140-440) 07/23/21 04:35 Lymph % (Auto) 7.9 % (13.4-35.0) L 07/23/21 04:35 Banner % (Auto) 5.6 % (0.0-7.3) 07/23/21 04:35 Eos % (Auto) 0.8 % (0.0-4.3) 07/23/21 04:35 Baso % (Auto) 0.4 % (0.0-1.8) 07/23/21 04:35 Lymph # (Auto) 0.9 K/mm3 (1.2-5.4) L 07/23/21 04:35 Banner # (Auto) 0.6 K/mm3 (0.0-0.8) 07/23/21 04:35 Eos # (Auto) 0.1 K/mm3 (0.0-0.4) 07/23/21 04:35 Baso # (Auto) 0.0 K/mm3 (0.0-0.1) 07/23/21 04:35 Add Manual Diff Complete 07/09/21 04:45 Total Counted 100 07/09/21 04:45 Seg Neutrophils % 85.3 % (40.0-70.0) H 07/23/21 04:35 Seg Neuts % (Manual) 82.0 % (40.0-70.0) H 07/09/21 04:45 Band Neutrophils % 1.0 % 05/12/21 04:05 Lymphocytes % (Manual) 13.0 % (13.4-35.0) L 07/09/21 04:45 Monocytes % (Manual) 3.0 % (0.0-7.3) 07/09/21 04:45 Eosinophils % (Manual) 2.0 % (0.0-4.3) 07/09/21 04:45 Nucleated RBC % Not Reportable 07/09/21 04:45 Seg Neutrophils # 9.2 K/mm3 (1.8-7.7) H 07/23/21 04:35 Seg Neutrophils # Man 7.8 K/mm3 (1.8-7.7) H 07/09/21 04:45 Band Neutrophils # 0.0 K/mm3 07/09/21 04:45 Lymphocytes # (Manual) 1.2 K/mm3 (1.2-5.4) 07/09/21 04:45 Abs React Lymphs (Man) 0.0 K/mm3 07/09/21 04:45 Monocytes # (Manual) 0.3 K/mm3 (0.0-0.8) 07/09/21 04:45 Eosinophils # (Manual) 0.2 K/mm3 (0.0-0.4) 07/09/21 04:45 Basophils # (Manual) 0.0 K/mm3 (0.0-0.1) 07/09/21 04:45 Metamyelocytes # 0.0 K/mm3 07/09/21 04:45 Myelocytes # 0.0 K/mm3 07/09/21 04:45 Promyelocytes # 0.0 K/mm3 07/09/21 04:45 Blast Cells # 0.0 K/mm3 07/09/21 04:45 WBC Morphology Not Reportable 07/09/21 04:45 Hypersegmented Neuts Not Reportable 07/09/21 04:45 Hyposegmented Neuts Not Reportable 07/09/21 04:45 Hypogranular Neuts Not Reportable 07/09/21 04:45 Smudge Cells Not Reportable 07/09/21 04:45 Toxic Granulation Not Reportable 07/09/21 04:45 Toxic Vacuolation Not Reportable 07/09/21 04:45 Dohle Bodies Not Reportable 07/09/21 04:45 Pelger-Huet Anomaly Not Reportable 07/09/21 04:45 Janelle Rods Not Reportable 07/09/21 04:45 Platelet Estimate Consistent w auto 07/09/21 04:45 Clumped Platelets Not Reportable 07/09/21 04:45 Plt Clumps, EDTA Not Reportable 07/09/21 04:45 Large Platelets Not Reportable 07/09/21 04:45 Giant Platelets Rare 07/09/21 04:45 Platelet Satelliting Not Reportable 07/09/21 04:45 Plt Morphology Comment Not Reportable 07/09/21 04:45 RBC Morphology Not Reportable 07/09/21 04:45 Dimorphic RBCs Not Reportable 07/09/21 04:45 Polychromasia Not Reportable 07/09/21 04:45 Hypochromasia Few 07/09/21 04:45 Poikilocytosis Not Reportable 07/09/21 04:45 Anisocytosis Not Reportable 07/09/21 04:45 Microcytosis Not Reportable 07/09/21 04:45 Macrocytosis Not Reportable 07/09/21 04:45 Spherocytes Not Reportable 07/09/21 04:45 Pappenheimer Bodies Not Reportable 07/09/21 04:45 Sickle Cells Not Reportable 07/09/21 04:45 Target Cells Not Reportable 07/09/21 04:45 Tear Drop Cells Not Reportable 07/09/21 04:45 Ovalocytes Not Reportable 07/09/21 04:45 Stomatocytes 1+ 07/09/21 04:45 Helmet Cells Not Reportable 07/09/21 04:45 Ahuja-Wahneta Bodies Not Reportable 07/09/21 04:45 Hannacroix Rings Not Reportable 07/09/21 04:45 Crow Cells Not Reportable 07/09/21 04:45 Bite Cells Not Reportable 07/09/21 04:45 Crenated Cell Not Reportable 07/09/21 04:45 Elliptocytes Not Reportable 07/09/21 04:45 Acanthocytes (Spur) Not Reportable 07/09/21 04:45 Rouleaux Not Reportable 07/09/21 04:45 Hemoglobin C Crystals Not Reportable 07/09/21 04:45 Schistocytes Not Reportable 07/09/21 04:45 Malaria parasites Not Reportable 07/09/21 04:45 Justin Bodies Not Reportable 07/09/21 04:45 Hem Pathologist Commnt No 07/09/21 04:45 D-Dimer 638.35 ng/mlDDU (0-234) H 07/09/21 04:45 ABG pH 7.417 (7.320-7.450) 07/23/21 18:11 POC ABG pCO2 78.3 mmHg (32.0-48.0) H 07/23/21 18:11 ABG pCO2 85.7 mm Hg 07/22/21 12:05 POC ABG pO2 80.7 mmHg (83-108) L 07/23/21 18:11 ABG pO2 66.1 mm Hg (80.0-90.0) L 07/22/21 12:05 POC ABG HCO3 49.3 07/23/21 18:11 ABG HCO3 45.0 mmol/L (20.0-26.0) H 07/22/21 12:05 ABG O2 Saturation 96.7 (0-100) 07/23/21 18:11 ABG O2 Content 16.8 (0.0-44) 07/22/21 12:05 POC ABG Base Excess 20.5 07/23/21 18:11 ABG Base Excess 15.2 mmol/L (-2.0-3.0) H 07/22/21 12:05 ABG Hemoglobin 12.6 (12.0-17.5) 07/23/21 18:11 ABG Oxyhemoglobin 95.7 (94-98) 07/23/21 18:11 ABG Carboxyhemoglobin 1.9 % (0.0-5.0) 07/22/21 12:05 ABG Methemoglobin 0.3 (0.0-1.5) 07/23/21 18:11 ABG Sodium 134.9 mmol/L (136.0-145.0) L 07/23/21 18:11 ABG Potassium 3.9 mmol/L (3.40-4.50) 07/23/21 18:11 ABG Chloride 89.0 mmol/L (98-107) L 07/23/21 18:11 ABG Glucose 200 mg/dL (65-95) H 07/23/21 18:11 Oxyhemoglobin 91.9 % (95.0-99.0) L 07/22/21 12:05 Carboxyhemoglobin 0.7 (0.5-1.5) 07/23/21 18:11 FiO2 100 % 07/22/21 12:05 FiO2 % 100.0 07/23/21 18:11 Sodium 140 mmol/L (137-145) 08/08/21 04:51 Potassium 4.1 mmol/L (3.6-5.0) 08/08/21 04:51 Chloride 92.9 mmol/L (98-107) L 08/08/21 04:51 Carbon Dioxide 39 mmol/L (22-30) H 08/08/21 04:51 Anion Gap 12 mmol/L 08/08/21 04:51 BUN 9 mg/dL (7-17) 08/08/21 04:51 Creatinine < 0.2 mg/dL (0.6-1.2) L 08/08/21 04:51 Estimated GFR > 60 ml/min 08/08/21 04:51 BUN/Creatinine Ratio 45 % 08/08/21 04:51 Glucose 105 mg/dL (65-100) H 08/08/21 04:51 POC Glucose 207 mg/dL (70-105) H 08/22/21 20:36 Hemoglobin A1c 8.5 % (4-6) H 04/18/21 07:36 Calcium 9.4 mg/dL (8.4-10.2) 08/08/21 04:51 Phosphorus 3.70 mg/dL (2.5-4.5) 07/23/21 04:35 Magnesium 2.10 mg/dL (1.7-2.3) 07/23/21 04:35 Ferritin 155.9 ng/mL (10.0-200.0) 07/09/21 04:45 Total Bilirubin < 0.20 mg/dL (0.1-1.2) 07/26/21 09:56 AST 23 units/L (5-40) 07/26/21 09:56 ALT 25 units/L (7-56) 07/26/21 09:56 Alkaline Phosphatase 69 units/L (35-129) 07/26/21 09:56 Lactate Dehydrogenase 475 units/L (91-180) H 06/05/21 05:26 C-Reactive Protein 4.30 mg/dL (0.00-1.30) H 07/09/21 04:45 NT-Pro-B Natriuret Pep 59.45 pg/mL (0-450) 07/07/21 13:40 Total Protein 8.1 g/dL (6.3-8.2) 07/26/21 09:56 Albumin 3.2 g/dL (3.9-5) L 07/26/21 09:56 Albumin/Globulin Ratio 0.7 % 07/26/21 09:56 Triglycerides < 9 mg/dL (2-149) 05/03/21 04:30 Procalcitonin < 0.05 ng/mL (<0.15) 05/23/21 09:50 Arterial Blood Glucose 200 mg/dL (65-95) H 07/23/21 18:11 Arterial Blood Ionized Calcium 4.6 mg/dL (4.6-5.3) 07/23/21 18:11 Coronavirus (PCR) Negative (Negative) 07/25/21 Unknown Amos/IV: Voiding Method External Female Catheter Active Medications - Current Medications Current Medications: Generic Name Dose Route Start Last Admin Trade Name Brennanq PRN Reason Stop Dose Admin Acetaminophen 650 mg 07/02/21 17:48 08/22/21 21:21 Acetaminophen 325 Mg Tab PO 650 mg Q4H PRN Administration Pain, Mild (1-3) Albuterol 2.5 mg 04/16/21 13:39 04/21/21 20:39 Albuterol 2.5 Mg/3 Ml Nebu IH 2.5 mg Q4HRT PRN Administration Shortness Of Breath Alprazolam 1 mg 08/12/21 11:00 08/22/21 21:00 Alprazolam 1 Mg Tab PO 1 mg BID TUTU Administration Calcium Carbonate/Glycine 500 mg 07/24/21 10:43 08/14/21 22:24 Calcium Carbonate 500 Mg Tab Chew PO 500 mg BID PRN Administration reflux Cholecalciferol 1,000 unit 04/17/21 10:00 08/22/21 10:21 Cholecalciferol (Vit D3) 1000 Unit (25 Mcg) Tab PO 1,000 unit QDAY TUTU Administration Enoxaparin Sodium 40 mg 05/19/21 22:00 08/22/21 21:00 Enoxaparin 40 Mg/0.4 Ml Inj SUB-Q 40 mg QDAY@2200 TUTU Administration Protocol Insulin Glargine 10 units 08/17/21 13:33 08/22/21 10:21 Insulin Glargine 100 Units/Ml SUB-Q 10 units DAILY TUTU Administration Insulin Human Lispro 0 unit 05/18/21 12:00 08/22/21 21:00 Insulin Lispro 100 Unit/Ml SUB-Q 4 unit ACHS TUTU Administration Protocol Methylprednisolone Sodium Succinate 125 mg 08/14/21 15:00 08/23/21 05:09 Methylprednisolone Sod Succinate 125 Mg/2 Ml Inj IV 125 mg Q8HR TUTU Administration Ondansetron HCl 4 mg 04/16/21 14:00 05/30/21 10:07 Ondansetron 4 Mg/2 Ml Inj IV 4 mg Q8H PRN Administration Nausea And Vomiting Polyethylene Glycol 17 gm 07/16/21 20:00 08/11/21 11:18 Polyethylene Glycol 3350 17 Gm Powder PO 17 gm QDAY PRN Administration Constipation Sodium Chloride 10 ml 04/16/21 13:39 08/21/21 09:17 Sodium Chloride 0.9% 10 Ml Flush Syringe IV 10 ml PRN PRN Administration LINE FLUSH Nutrition/Malnutrition Assess - Dietary Evaluation Nutrition/Malnutrition Findings: Nutrition Notes Start: 04/23/21 07:41 Freq: Status: Active Protocol: Document 08/09/21 17:26 SAQIB (Rec: 08/09/21 17:30 [id number]) Nutrition Notes Initial or Follow up Brief Note Subjective/Other Information RD brief note to set next F/U on 09/12 Nutrition Intervention Follow-Up By: 09/12/21 Additional Comments Continue monitoring food tolerance, %PO intake of meals , Hydration, and BM.
[2021-08-23] MEDS: INSULIN LISPRO 100 UNIT/ML SUB-Q SCH ×4 (08:42→23:01)
[2021-08-23] MEDS ORDERED: methylPREDNISolone Sod Succinate 125 MG/2 ML INJ IV SCH (09:00)
[2021-08-23] MEDS: ALPRAZolam 1 MG TAB PO SCH ×2 (09:01→23:02)
[2021-08-23] MEDS: CHOLECALCIFEROL (VIT D3) 1000 UNIT (25 mcg) TAB PO SCH (09:01)
[2021-08-23] MEDS: INSULIN GLARGINE 100 UNITS/ML SUB-Q SCH (09:02)
--- NOTE | 2021-08-23 12:56 | Progress Note ---
Assessment and Plan 50 y/o female with acute respiratory failure secondary to COVID19 pneumonia. 08/23/21: Patient continues to have slow improvement with steroids so please continue solumedrol 125q8 through the weekend at least and will reassess on Thursday. CM is working to obtain hospice placement with hfnc therapy. Repeat CXR on Thursday. 08/21/21: Will repeat CXR today. Consider decreasing steroid tomorrow. 08/18/21: Will continue steroids at current dosing as I believe they are helping. IMS managing blood sugars. I notified RT but I dropped FiO2 down to 55% while patient was sleeping. Will continue to follow. CM still working with hospice to get home but has to meet certain criteria on HFNC and she is not there yet. 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 Will continue solumedrol 125q8 and wean slowly over time. Discussed with pharmacy. CM working on possible placement with hospice company once she reaches a certain goal of HFNC. Will continue to monitor. 08/14/21: wean HFNC as tolerated. 08/12/21: Continue to attempt to wean HFNC. No other therapies available for this at present. Will check CXR today. 08/07/21: Constant struggle with Ms. Ren, on and off bipap. Good and bad days. She has had all therapy. Anxiety does play a huge roll but she truly desats. Continue NIV at night and PRN during the day. Wean HFNC as tolerated for sats >88%. May consider another trial of steroids when I come back. My partner is rounding the next 4 days. 08/05/21: I dropped FiO2 to 65%. Continue to wean for sats >88%. 08/03/21: COntinue supportive measures. Thank you for documenting refusal of NIV at night. Will attempt to speak with patient about anxiety and why she doesn't want to wear the NIV via the language line. 08/02/21: Continue supportive care. pLaced new order for NIV at night. Please document if patient refuses 07/31/21: COntinue to wean FiO2 as tolerated. NIV at night. 07/30/21: Bipap QHS. Please document if patient is refusing this at night. Per nurse she has refused but RT documentation reflects that it was PRN and not needed. Prognosis is still guarded. 07/29/21: Continue to attempt to wean FiO2. Given fluctuations in oxygen requirements, ok with keeping in IMCU. consider using bipap therapy at night if patient will allow. Prognosis still remains guarded. Patient has been here 104 days. 07/21/21: Wean FiO2 as tolerated. Patient has never proned the entire 96 days she has been here. Will continue bipap at night. Hold on lasix again today. Prognosis remains guarded. Has finished steroids and all other experimental COVID drugs with minimal to no improvement. 07/20/21: Give patient a break off of bipap and attempt high flow nasal cannula today. Will feed. Suggest keeping bipap therapy at night. Monitor fluid balance and BP. May need more lasix. 07/19/21: This was not related to stopping steroids as hemodynamically she is stable. Her sats is very good on 90%, I dropped to 85 and will continue to wean. She speaks no setswana and is very anxious. This adds to her work of breathing. COntinue to wean FiO2 as tolerated. Will give periodic breaks on bipap therapy. Guarded prognosis. 07/17/21: will stop steroids today. Hold on lasix given marginal blood press ure. Guarded prognosis. 07/15/21: Lasix today. Positive fluid balance all weekend based on I/O. Prone. Wean for sats >88% 07/12/21: Gave lasix 40mg IV again this am. Per charting yesterday was the first net negative day. Suggest PRN diuresis over the weekend as well. My partner is rounding but will likely see as needed. Continue to wean for sats >88% 07/11/21: Lasix 40mg IV this am. Attempt to prone if able. Attempt to achieve daily net negative state. Wean for sats >88%. Guarded prognosis. Will change prednisone to 5mg daily starting tomorrow. 07/09/21: Echo shows diastolic dysfunction. Will given an additional 40 of IV lasix today. Monitor daily and wean aggressively for sats >88% 07/08/21: Worsening CXR, Gave lasix yesterday and will give again today. Suggest checking echo, ekg. Prognosis is poor now with this change. We have seen COVID cause CAD with MT. 07/05/21: Will monitor over the weekend. Worst case scenario, may need to go back up to Prednisone 20 at least. Prone if able. Unsure why all of sudden oxygen requirement increasing. Will repeat CXR. 07/03/21: Down to 10 of prednisone. Will keep through the weekend and then drop to 5 on Thursday. PT/OT assessment if not done. Suggest maybe weaning flow now given FiO2 down to 50%. Prognosis is still guarded. 07/01/21: Will drop steroids to 10mg daily starting tomorrow. Wean for sats > 88%. Prone. PT/OT should be seeing now that oxygen requirement is down more. 06/28/21: Continue to wean as tolerated. Will drop steroids down even further next week. Will see PRN over the weekend. 06/26/21: Will drop steroids down to 20 starting tomorrow. Prone. Continue to wean as tolerated. 06/24/21: Continue Pred, will drop to 20 daily tomorrow. Prone if able. Hopeful they can wean FiO2 more. May need to consider increasing flow for a while. 06/21/21: Continue pred at 40, will decrease likely Thursday/Thursday to 20 daily. Prone if able. Continue to wean as tolerated. Prognosis still remains guarded. 06/20/21: Will drop steroids down to 40 today. Proning. Continue to wean FiO2. 06/18/21: Wean Fio2 for sats >88%. Please encourage proning. Drop steroids down to 40 on . 06/14/21: Continue oral steroid therapy. Will do further weaning next week. Wean for sats >88% and prone as tolerated. Will see as needed over the weekend. 06/13/21: Will change to prednisone 60 daily starting tomorrow. Prone if able and wean for sats >88% 06/11/21: no new recs, will change to oral steroids tomorrow, continue to prone if able and wean for sats >88% 06/10/21: Will change to oral steroids on Thursday to begin prolonged taper 06/06/21: Continue to wean as tolerated, will drop steroids on tomorrow. 06/04/21: Clinically no change. Will drop steroids down the end of this week. 05/31/21: Clinically no change. Not eligible for LTACH. Encourage Proning. Will drop steroids down to 40 q8 05/29/21: No acute changes clinically. Still on HFNC but not really able to wean. Continue to encourage proning. Will drop steroids further on Thursday. 05/27/21: No improvement over the weekend but also no worsening. No other strategies to offer. Please continue to encourage patient to prone. I dropped steroids on yesterday. Will wean more later in the week. 05/24/21: No new recs again for today. Will see as needed over the weekend but follow chart peripherally for changes. 05/22/21: No new recs for today. Prognosis remains guarded. 05/21/21: Wean as tolerated. Prone if able. Guarded prognosis 05/20/21: COntinue current level of care. 05/17/21: Prone if possible. Wean FiO2 for sats >88%. Continue scheduled ativan. Prognosis is very very guarded. Unfunded so not a candidate for LTACH 05/16/21: Prone if willing. Wean FIO2 if patient will allow. Anxiety control. Prognosis still remains very guarded. 05/15/21: Not sure if MAR is accurate but may have only gotten one dose of scheduled anixolytic therapy. Continue proning as tolerated, and wean FiO2 and flow for sats >88%. Prognosi remains very very guarded to poor. 05/14/21: Will discontinue the buspar and make the ativan scheduled but will do q6 as oppose to q4 and attempt to leave parameters for nursing when not to give. If anxiety could be controlled, feel that patient could be weaned further. She has no funding so she is not a candidate for LTACH. Prone if possible. Guarded prognosis. This is her day. 05/13/21: Ordered buspar 10 BID to start with to help with anxiety. Please continue to wean FiO2 as tolerated. Will remind nurse that there is PRN ativan available. Continue higher doses of steroids. Prone if able. 05/12/21: Patient may need something longer acting for anxiety. Per chart has not gotten any ativan in days. Would be ok with either buspar or low dose klonopin bid. COntinue higher doses of steroids as patient seems to be responding. Prone if possible. 05/11/21: Continue high doses of steroids and continue to wean for sats >88%. Ene zapien encourage proning. 05/10/21: Will continue this dose of steroid at least through the weekend and assess for improvement. will speak with RT about aggressive weaning. Full dose anticoagulation continues. Very very guarded to poor prognosis. 05/09/21: Going to consider increasing steroids to 125q8, maybe as early as tomorrow. continue full dose anticoagulation. 05/08/21: Continue anticoagulation and steroids. Prone if possible. Anxiety control. No objection to CTA if this can happen. Very very guarded prognosis. 05/07/21: Spoke with IMS, not opposed to full dose anticoagulation. If patient goes back on NRB HFNC combo may need to consider restarting PPN again. Encourage proning. Guarded prognosis. 05/06/21: Continue to wean FiO2 and flow for sats >88%. Tolerating diet now so will stop PPN. Continue anxiety control. Continue IV steroids. Would not object to transfer to COVID floor if bed available. Not sure why she was titrated back up to 100% from 85 as all sats documented in the RT's notes were acceptable. Same for under vital signs as well. 05/03/21: Set back last night from yesterday. Continue bipap therapy for now and attempt HFNC maybe later this afternoon. Continue to use PRN ativan but may need to schedule as she likely took off mask from anxiety. Continue IV steroids. Hold on transfer to COVID Floor. 05/02/21: Continue to wean FiO2 as tolerated for sats >88%. Will continue bipap at night. Patient has no funding so not a candidate for LTACH. Given that she has been stable and not requiring the combo of HFNC and NRB, will consider movi ng to COVID floor. 05/01/21: Continue to wean FiO2 for sats >88%. A sat of 90 is more than acce ptable and oxygen should not be increased for this unless patient desats and remains at a sat lower than 88. Bipap at night to give some form of relief and HFNC during the day. Currently on just this alone which is improvement. Ok with daily diuresis but must monitor renal function and BP closely. She was over diuresed last week and we ended up giving fluid back. Prognosis remains guarded. 04/30/21: Will start CLinimix today for nutritional support, without electrolytes. Check labs in am. Prone if able. Continue precedex for anxiety. Very very guarded prognosis. Attempting our best to not intubate. 04/29/21: Continue precedex. Continue IV solumedrol. Prone if able. Guarded prognosis. 04/28/21: Continue Precedex. Picc team attempting to place line now. Stable on Bipap. Ordered steroids IV solumedrol to start today. Prognosis remains guarded, still at very high risk for intubation. 04/27/21: Hypotension improving/improved. Hold on any further lasix dosing. Continue precedex to help with anxeity. later today please attempt HFNC with NRB if needed. Attempt to feed if possible. Steroids end today, please order solumedrol 40q8 to start tomorrow (04/28/21). guarded prognosis. 04/26/21: Hypotension today, most likely from precedex use and diuresis that I did the last several days. Will bolus again today. Consider midodrine if BP does not respond. 04/25/21: Lasix again today. Keep PRN ativan for now. Hold on precedex for now. Guarded prognosis. Labs ordered for tomorrow. 04/24/21: Lasix today. Will also start patient on low dose PRN ativan. If this does not help will then try precedex. Guarded prognosis. 04/23/21: Prone as tolerated. No lasix today. Continue decadron. Guarded prognosis. High risk for intubation and high mortality with intubation. 04/19/21: Prone as tolerated during the day and sleep prone at night. Continue IV remdesivir and steroids. Did get actemra. Guarded prognosis. 1. Daily net negative state 2. Prone if possible 3. IV remdesivir. 4. Should be a candidate for Actemra 5. IV steroids 6. Guarded Prognosis Subjective Date of service: 08/23/21 Principal diagnosis: Covid-19 Interval history: Patient remains on 30 and 50%. Good sats. Objective Vital Signs - 12hr 08/23/21 08/23/21 08/23/21 01:00 02:00 03:00 Temperature Pulse Rate 88 86 87 Pulse Rate [ From Monitor] Respiratory 17 25 H 25 H Rate Blood Pressure 92/50 100/52 107/55 O2 Sat by Pulse 94 93 94 Oximetry 08/23/21 08/23/21 08/23/21 03:34 04:00 04:30 Temperature 97.2 F L Pulse Rate 86 88 Pulse Rate [ 96 H From Monitor] Respiratory 33 H 23 Rate Blood Pressure 112/60 112/60 O2 Sat by Pulse 97 96 97 Oximetry 08/23/21 08/23/21 08/23/21 04:36 05:00 06:00 Temperature 97.2 F L Pulse Rate 85 95 H Pulse Rate [ From Monitor] Respiratory 22 27 H Rate Blood Pressure 102/59 117/61 O2 Sat by Pulse 99 90 Oximetry 08/23/21 08/23/21 08/23/21 07:00 08:00 08:11 Temperature 98 F Pulse Rate 88 98 H Pulse Rate [ 108 H From Monitor] Respiratory 22 29 H Rate Blood Pressure 109/57 116/61 O2 Sat by Pulse 98 95 95 Oximetry 08/23/21 08/23/21 08/23/21 09:00 10:00 11:00 Temperature Pulse Rate 104 H 103 H 100 H Pulse Rate [ From Monitor] Respiratory 17 32 H 26 H Rate Blood Pressure 118/53 118/63 114/57 O2 Sat by Pulse 96 96 94 Oximetry 08/23/21 08/23/21 11:37 11:40 Temperature 97.8 F Pulse Rate 101 H Pulse Rate [ 108 H From Monitor] Respiratory 27 H Rate Blood Pressure O2 Sat by Pulse 95 Oximetry Constitutional: alert, other (on hiflo o2) Eyes: non-icteric ENT: oropharynx moist Neck: supple Effort: normal Ascultation: Bilateral: diminished breath sounds Cardiovascular: regular rate and rhythm Gastrointestinal: normoactive bowel sounds, soft, non-tender, non-distended Integumentary: normal Extremities: no cyanosis, no edema, pink and warm Neurologic: non-focal exam, pupils equal and round Psychiatric: mood appropriate, affect normal CBC and BMP: 07/23/21 04:35 08/08/21 04:51 ABG, PT/INR, D-dimer: ABG ABG pH 7.417 (7.320-7.450) 07/23/21 18:11 POC ABG pCO2 78.3 mmHg (32.0-48.0) H 07/23/21 18:11 ABG pCO2 85.7 mm Hg 07/22/21 12:05 POC ABG pO2 80.7 mmHg (83-108) L 07/23/21 18:11 ABG pO2 66.1 mm Hg (80.0-90.0) L 07/22/21 12:05 POC ABG HCO3 49.3 07/23/21 18:11 ABG O2 Saturation 96.7 (0-100) 07/23/21 18:11 PT/INR, D-dimer D-Dimer 638.35 ng/mlDDU (0-234) H 07/09/21 04:45 Abnormal lab findings: Abnormal Labs 04/16/21 04/16/21 04/16/21 11:42 11:42 11:42 WBC MCV MCH MCHC RDW 16.1 H Lymph % (Auto) 7.8 L Foster % (Auto) Eos % (Auto) Lymph # (Auto) 0.8 L Foster # (Auto) Eos # (Auto) Baso # (Auto) Seg Neutrophils % 87.7 H Seg Neuts % (Manual) Lymphocytes % (Manual) Seg Neutrophils # 8.5 H Seg Neutrophils # Man Lymphocytes # (Manual) D-Dimer 338.70 H ABG pH POC ABG pCO2 POC ABG pO2 ABG pO2 ABG HCO3 ABG O2 Saturation ABG Base Excess ABG Oxyhemoglobin ABG Sodium ABG Chloride ABG Glucose Oxyhemoglobin Carboxyhemoglobin Sodium Potassium Chloride Carbon Dioxide BUN Creatinine Glucose 194 H POC Glucose Hemoglobin A1c Magnesium Ferritin AST ALT Alkaline Phosphatase Lactate Dehydrogenase C-Reactive Protein Total Protein 8.4 H Albumin 3.8 L Arterial Blood Glucose Coronavirus (PCR) 04/16/21 04/16/21 04/17/21 11:42 11:42 03:50 WBC MCV MCH MCHC RDW 16.0 H Lymph % (Auto) 7.7 L Foster % (Auto) Eos % (Auto) Lymph # (Auto) 0.6 L Foster # (Auto) Eos # (Auto) Baso # (Auto) Seg Neutrophils % 89.8 H Seg Neuts % (Manual) Lymphocytes % (Manual) Seg Neutrophils # Seg Neutrophils # Man Lymphocytes # (Manual) D-Dimer ABG pH POC ABG pCO2 POC ABG pO2 ABG pO2 ABG HCO3 ABG O2 Saturation ABG Base Excess ABG Oxyhemoglobin ABG Sodium ABG Chloride ABG Glucose Oxyhemoglobin Carboxyhemoglobin Sodium Potassium Chloride Carbon Dioxide BUN Creatinine Glucose 195 H POC Glucose Hemoglobin A1c Magnesium Ferritin 254.3 H AST ALT Alkaline Phosphatase Lactate Dehydrogenase 359 H C-Reactive Protein 15.20 H Total Protein Albumin Arterial Blood Glucose Coronavirus (PCR) 04/17/21 04/17/21 04/17/21 03:50 08:26 08:26 WBC MCV MCH MCHC RDW Lymph % (Auto) Foster % (Auto) Eos % (Auto) Lymph # (Auto) Foster # (Auto) Eos # (Auto) Baso # (Auto) Seg Neutrophils % Seg Neuts % (Manual) Lymphocytes % (Manual) Seg Neutrophils # Seg Neutrophils # Man Lymphocytes # (Manual) D-Dimer 262.48 H ABG pH POC ABG pCO2 POC ABG pO2 ABG pO2 ABG HCO3 ABG O2 Saturation ABG Base Excess ABG Oxyhemoglobin ABG Sodium ABG Chloride ABG Glucose Oxyhemoglobin Carboxyhemoglobin Sodium Potassium Chloride Carbon Dioxide BUN 20 H Creatinine 0.5 L Glucose 249 H 225 H POC Glucose Hemoglobin A1c Magnesium Ferritin AST ALT Alkaline Phosphatase Lactate Dehydrogenase 338 H C-Reactive Protein 17.20 H Total Protein Albumin 3.2 L Arterial Blood Glucose Coronavirus (PCR) 04/17/21 04/17/21 04/17/21 08:26 15:04 Unknown WBC MCV MCH MCHC RDW Lymph % (Auto) Foster % (Auto) Eos % (Auto) Lymph # (Auto) Foster # (Auto) Eos # (Auto) Baso # (Auto) Seg Neutrophils % Seg Neuts % (Manual) Lymphocytes % (Manual) Seg Neutrophils # Seg Neutrophils # Man Lymphocytes # (Manual) D-Dimer ABG pH POC ABG pCO2 POC ABG pO2 ABG pO2 ABG HCO3 ABG O2 Saturation ABG Base Excess ABG Oxyhemoglobin ABG Sodium ABG Chloride ABG Glucose Oxyhemoglobin Carboxyhemoglobin Sodium Potassium Chloride Carbon Dioxide BUN 20 H Creatinine 0.5 L Glucose 246 H POC Glucose Hemoglobin A1c Magnesium Ferritin 392.0 H AST ALT Alkaline Phosphatase Lactate Dehydrogenase C-Reactive Protein Total Protein 8.3 H Albumin 3.1 L Arterial Blood Glucose Coronavirus (PCR) Positive A 04/18/21 04/18/21 04/18/21 05:06 05:06 07:36 WBC 11.6 H MCV MCH MCHC RDW 16.1 H Lymph % (Auto) Foster % (Auto) Eos % (Auto) Lymph # (Auto) Foster # (Auto) Eos # (Auto) Baso # (Auto) Seg Neutrophils % Seg Neuts % (Manual) Lymphocytes % (Manual) Seg Neutrophils # Seg Neutrophils # Man Lymphocytes # (Manual) D-Dimer ABG pH POC ABG pCO2 POC ABG pO2 ABG pO2 ABG HCO3 ABG O2 Saturation ABG Base Excess ABG Oxyhemoglobin ABG Sodium ABG Chloride ABG Glucose Oxyhemoglobin Carboxyhemoglobin Sodium Potassium 5.2 H Chloride Carbon Dioxide BUN 22 H Creatinine 0.5 L Glucose 315 H POC Glucose Hemoglobin A1c 8.5 H Magnesium Ferritin AST ALT Alkaline Phosphatase Lactate Dehydrogenase C-Reactive Protein Total Protein Albumin 3.3 L Arterial Blood Glucose Coronavirus (PCR) 04/18/21 04/18/21 04/18/21 11:59 16:43 23:24 WBC MCV MCH MCHC RDW Lymph % (Auto) Foster % (Auto) Eos % (Auto) Lymph # (Auto) Foster # (Auto) Eos # (Auto) Baso # (Auto) Seg Neutrophils % Seg Neuts % (Manual) Lymphocytes % (Manual) Seg Neutrophils # Seg Neutrophils # Man Lymphocytes # (Manual) D-Dimer ABG pH POC ABG pCO2 POC ABG pO2 ABG pO2 ABG HCO3 ABG O2 Saturation ABG Base Excess ABG Oxyhemoglobin ABG Sodium ABG Chloride ABG Glucose Oxyhemoglobin Carboxyhemoglobin Sodium Potassium Chloride Carbon Dioxide BUN Creatinine Glucose POC Glucose 284 H 273 H 290 H Hemoglobin A1c Magnesium Ferritin AST ALT Alkaline Phosphatase Lactate Dehydrogenase C-Reactive Protein Total Protein Albumin Arterial Blood Glucose Coronavirus (PCR) 04/19/21 04/19/21 04/19/21 04:19 04:19 08:10 WBC MCV MCH MCHC RDW 15.7 H Lymph % (Auto) Foster % (Auto) Eos % (Auto) Lymph # (Auto) Foster # (Auto) Eos # (Auto) Baso # (Auto) Seg Neutrophils % Seg Neuts % (Manual) Lymphocytes % (Manual) Seg Neutrophils # Seg Neutrophils # Man Lymphocytes # (Manual) D-Dimer ABG pH POC ABG pCO2 POC ABG pO2 ABG pO2 ABG HCO3 ABG O2 Saturation ABG Base Excess ABG Oxyhemoglobin ABG Sodium ABG Chloride ABG Glucose Oxyhemoglobin Carboxyhemoglobin Sodium Potassium Chloride Carbon Dioxide BUN 27 H Creatinine 0.4 L Glucose 184 H POC Glucose 194 H Hemoglobin A1c Magnesium Ferritin AST ALT Alkaline Phosphatase Lactate Dehydrogenase C-Reactive Protein Total Protein Albumin 3.1 L Arterial Blood Glucose Coronavirus (PCR) 04/19/21 04/19/21 04/19/21 11:38 16:25 22:04 WBC MCV MCH MCHC RDW Lymph % (Auto) Foster % (Auto) Eos % (Auto) Lymph # (Auto) Foster # (Auto) Eos # (Auto) Baso # (Auto) Seg Neutrophils % Seg Neuts % (Manual) Lymphocytes % (Manual) Seg Neutrophils # Seg Neutrophils # Man Lymphocytes # (Manual) D-Dimer ABG pH POC ABG pCO2 POC ABG pO2 ABG pO2 ABG HCO3 ABG O2 Saturation ABG Base Excess ABG Oxyhemoglobin ABG Sodium ABG Chloride ABG Glucose Oxyhemoglobin Carboxyhemoglobin Sodium Potassium Chloride Carbon Dioxide BUN Creatinine Glucose POC Glucose 224 H 297 H 251 H Hemoglobin A1c Magnesium Ferritin AST ALT Alkaline Phosphatase Lactate Dehydrogenase C-Reactive Protein Total Protein Albumin Arterial Blood Glucose Coronavirus (PCR) 04/20/21 04/20/21 04/20/21 05:28 08:43 16:21 WBC MCV MCH MCHC RDW Lymph % (Auto) Foster % (Auto) Eos % (Auto) Lymph # (Auto) Foster # (Auto) Eos # (Auto) Baso # (Auto) Seg Neutrophils % Seg Neuts % (Manual) Lymphocytes % (Manual) Seg Neutrophils # Seg Neutrophils # Man Lymphocytes # (Manual) D-Dimer ABG pH POC ABG pCO2 POC ABG pO2 ABG pO2 ABG HCO3 ABG O2 Saturation ABG Base Excess ABG Oxyhemoglobin ABG Sodium ABG Chloride ABG Glucose Oxyhemoglobin Carboxyhemoglobin Sodium Potassium Chloride Carbon Dioxide BUN 27 H Creatinine Glucose 192 H POC Glucose 173 H 253 H Hemoglobin A1c Magnesium Ferritin AST ALT Alkaline Phosphatase Lactate Dehydrogenase C-Reactive Protein Total Protein Albumin 3.0 L Arterial Blood Glucose Coronavirus (PCR) 04/21/21 04/21/21 04/21/21 07:58 12:05 16:08 WBC MCV MCH MCHC RDW Lymph % (Auto) Foster % (Auto) Eos % (Auto) Lymph # (Auto) Foster # (Auto) Eos # (Auto) Baso # (Auto) Seg Neutrophils % Seg Neuts % (Manual) Lymphocytes % (Manual) Seg Neutrophils # Seg Neutrophils # Man Lymphocytes # (Manual) D-Dimer ABG pH POC ABG pCO2 POC ABG pO2 ABG pO2 ABG HCO3 ABG O2 Saturation ABG Base Excess ABG Oxyhemoglobin ABG Sodium ABG Chloride ABG Glucose Oxyhemoglobin Carboxyhemoglobin Sodium Potassium Chloride Carbon Dioxide BUN Creatinine Glucose POC Glucose 140 H 252 H 214 H Hemoglobin A1c Magnesium Ferritin AST ALT Alkaline Phosphatase Lactate Dehydrogenase C-Reactive Protein Total Protein Albumin Arterial Blood Glucose Coronavirus (PCR) 04/21/21 04/22/21 04/22/21 21:42 08:37 12:01 WBC MCV MCH MCHC RDW Lymph % (Auto) Foster % (Auto) Eos % (Auto) Lymph # (Auto) Foster # (Auto) Eos # (Auto) Baso # (Auto) Seg Neutrophils % Seg Neuts % (Manual) Lymphocytes % (Manual) Seg Neutrophils # Seg Neutrophils # Man Lymphocytes # (Manual) D-Dimer ABG pH 7.457 H POC ABG pCO2 POC ABG pO2 49.4 L ABG pO2 ABG HCO3 ABG O2 Saturation ABG Base Excess ABG Oxyhemoglobin 85.6 L ABG Sodium ABG Chloride ABG Glucose 121 H Oxyhemoglobin Carboxyhemoglobin 0.3 L Sodium Potassium Chloride Carbon Dioxide BUN Creatinine Glucose POC Glucose 162 H 227 H Hemoglobin A1c Magnesium Ferritin AST ALT Alkaline Phosphatase Lactate Dehydrogenase C-Reactive Protein Total Protein Albumin Arterial Blood Glucose 121 H Coronavirus (PCR) 04/22/21 04/22/21 04/23/21 16:26 22:23 04:52 WBC MCV MCH MCHC RDW 15.7 H Lymph % (Auto) Foster % (Auto) Eos % (Auto) Lymph # (Auto) Foster # (Auto) Eos # (Auto) Baso # (Auto) Seg Neutrophils % Seg Neuts % (Manual) Lymphocytes % (Manual) Seg Neutrophils # Seg Neutrophils # Man Lymphocytes # (Manual) D-Dimer ABG pH POC ABG pCO2 POC ABG pO2 ABG pO2 ABG HCO3 ABG O2 Saturation ABG Base Excess ABG Oxyhemoglobin ABG Sodium ABG Chloride ABG Glucose Oxyhemoglobin Carboxyhemoglobin Sodium Potassium Chloride Carbon Dioxide BUN Creatinine Glucose POC Glucose 200 H 136 H Hemoglobin A1c Magnesium Ferritin AST ALT Alkaline Phosphatase Lactate Dehydrogenase C-Reactive Protein Total Protein Albumin Arterial Blood Glucose Coronavirus (PCR) 04/23/21 04/23/21 04/23/21 04:52 12:06 17:41 WBC MCV MCH MCHC RDW Lymph % (Auto) Foster % (Auto) Eos % (Auto) Lymph # (Auto) Foster # (Auto) Eos # (Auto) Baso # (Auto) Seg Neutrophils % Seg Neuts % (Manual) Lymphocytes % (Manual) Seg Neutrophils # Seg Neutrophils # Man Lymphocytes # (Manual) D-Dimer ABG pH POC ABG pCO2 POC ABG pO2 ABG pO2 ABG HCO3 ABG O2 Saturation ABG Base Excess ABG Oxyhemoglobin ABG Sodium ABG Chloride ABG Glucose Oxyhemoglobin Carboxyhemoglobin Sodium 136 L Potassium Chloride 97.7 L Carbon Dioxide BUN 23 H Creatinine Glucose 101 H POC Glucose 202 H 169 H Hemoglobin A1c Magnesium Ferritin AST 46 H ALT Alkaline Phosphatase Lactate Dehydrogenase C-Reactive Protein Total Protein Albumin 3.3 L Arterial Blood Glucose Coronavirus (PCR) 04/23/21 04/24/21 04/24/21 23:08 05:17 08:38 WBC MCV MCH MCHC RDW Lymph % (Auto) Foster % (Auto) Eos % (Auto) Lymph # (Auto) Foster # (Auto) Eos # (Auto) Baso # (Auto) Seg Neutrophils % Seg Neuts % (Manual) Lymphocytes % (Manual) Seg Neutrophils # Seg Neutrophils # Man Lymphocytes # (Manual) D-Dimer ABG pH POC ABG pCO2 POC ABG pO2 ABG pO2 ABG HCO3 ABG O2 Saturation ABG Base Excess ABG Oxyhemoglobin ABG Sodium ABG Chloride ABG Glucose Oxyhemoglobin Carboxyhemoglobin Sodium Potassium Chloride Carbon Dioxide BUN Creatinine Glucose POC Glucose 111 H 108 H 126 H Hemoglobin A1c Magnesium Ferritin AST ALT Alkaline Phosphatase Lactate Dehydrogenase C-Reactive Protein Total Protein Albumin Arterial Blood Glucose Coronavirus (PCR) 04/24/21 04/24/21 04/24/21 11:54 17:57 21:23 WBC MCV MCH MCHC RDW Lymph % (Auto) Foster % (Auto) Eos % (Auto) Lymph # (Auto) Foster # (Auto) Eos # (Auto) Baso # (Auto) Seg Neutrophils % Seg Neuts % (Manual) Lymphocytes % (Manual) Seg Neutrophils # Seg Neutrophils # Man Lymphocytes # (Manual) D-Dimer ABG pH POC ABG pCO2 POC ABG pO2 ABG pO2 ABG HCO3 ABG O2 Saturation ABG Base Excess ABG Oxyhemoglobin ABG Sodium ABG Chloride ABG Glucose Oxyhemoglobin Carboxyhemoglobin Sodium Potassium Chloride Carbon Dioxide BUN Creatinine Glucose POC Glucose 147 H 177 H 138 H Hemoglobin A1c Magnesium Ferritin AST ALT Alkaline Phosphatase Lactate Dehydrogenase C-Reactive Protein Total Protein Albumin Arterial Blood Glucose Coronavirus (PCR) 04/25/21 04/25/21 04/25/21 07:06 11:23 15:43 WBC MCV MCH MCHC RDW Lymph % (Auto) Foster % (Auto) Eos % (Auto) Lymph # (Auto) Foster # (Auto) Eos # (Auto) Baso # (Auto) Seg Neutrophils % Seg Neuts % (Manual) Lymphocytes % (Manual) Seg Neutrophils # Seg Neutrophils # Man Lymphocytes # (Manual) D-Dimer ABG pH POC ABG pCO2 POC ABG pO2 ABG pO2 ABG HCO3 ABG O2 Saturation ABG Base Excess ABG Oxyhemoglobin ABG Sodium ABG Chloride ABG Glucose Oxyhemoglobin Carboxyhemoglobin Sodium Potassium Chloride Carbon Dioxide BUN Creatinine Glucose POC Glucose 147 H 169 H 227 H Hemoglobin A1c Magnesium Ferritin AST ALT Alkaline Phosphatase Lactate Dehydrogenase C-Reactive Protein Total Protein Albumin Arterial Blood Glucose Coronavirus (PCR) 04/25/21 04/26/21 04/26/21 21:22 02:45 05:15 WBC MCV MCH MCHC RDW Lymph % (Auto) Foster % (Auto) Eos % (Auto) Lymph # (Auto) Foster # (Auto) Eos # (Auto) Baso # (Auto) Seg Neutrophils % Seg Neuts % (Manual) Lymphocytes % (Manual) Seg Neutrophils # Seg Neutrophils # Man Lymphocytes # (Manual) D-Dimer ABG pH POC ABG pCO2 POC ABG pO2 70.7 L ABG pO2 ABG HCO3 ABG O2 Saturation ABG Base Excess ABG Oxyhemoglobin 93.0 L ABG Sodium 132.7 L ABG Chloride ABG Glucose 115 H Oxyhemoglobin Carboxyhemoglobin Sodium Potassium Chloride 95.8 L Carbon Dioxide 32 H BUN 20 H Creatinine Glucose 102 H POC Glucose 196 H Hemoglobin A1c Magnesium Ferritin AST ALT Alkaline Phosphatase Lactate Dehydrogenase C-Reactive Protein Total Protein Albumin Arterial Blood Glucose 115 H Coronavirus (PCR) 04/26/21 04/26/21 04/26/21 11:49 16:09 21:07 WBC MCV MCH MCHC RDW Lymph % (Auto) Foster % (Auto) Eos % (Auto) Lymph # (Auto) Foster # (Auto) Eos # (Auto) Baso # (Auto) Seg Neutrophils % Seg Neuts % (Manual) Lymphocytes % (Manual) Seg Neutrophils # Seg Neutrophils # Man Lymphocytes # (Manual) D-Dimer ABG pH POC ABG pCO2 POC ABG pO2 ABG pO2 ABG HCO3 ABG O2 Saturation ABG Base Excess ABG Oxyhemoglobin ABG Sodium ABG Chloride ABG Glucose Oxyhemoglobin Carboxyhemoglobin Sodium Potassium Chloride Carbon Dioxide BUN Creatinine Glucose POC Glucose 114 H 188 H 136 H Hemoglobin A1c Magnesium Ferritin AST ALT Alkaline Phosphatase Lactate Dehydrogenase C-Reactive Protein Total Protein Albumin Arterial Blood Glucose Coronavirus (PCR) 04/27/21 04/27/21 04/28/21 17:34 22:12 08:26 WBC MCV MCH MCHC RDW Lymph % (Auto) Foster % (Auto) Eos % (Auto) Lymph # (Auto) Foster # (Auto) Eos # (Auto) Baso # (Auto) Seg Neutrophils % Seg Neuts % (Manual) Lymphocytes % (Manual) Seg Neutrophils # Seg Neutrophils # Man Lymphocytes # (Manual) D-Dimer ABG pH POC ABG pCO2 POC ABG pO2 ABG pO2 ABG HCO3 ABG O2 Saturation ABG Base Excess ABG Oxyhemoglobin ABG Sodium ABG Chloride ABG Glucose Oxyhemoglobin Carboxyhemoglobin Sodium Potassium Chloride Carbon Dioxide BUN Creatinine Glucose POC Glucose 128 H 159 H 69 L Hemoglobin A1c Magnesium Ferritin AST ALT Alkaline Phosphatase Lactate Dehydrogenase C-Reactive Protein Total Protein Albumin Arterial Blood Glucose Coronavirus (PCR) 04/28/21 04/28/21 04/29/21 12:22 21:11 06:05 WBC MCV MCH MCHC RDW Lymph % (Auto) Foster % (Auto) Eos % (Auto) Lymph # (Auto) Foster # (Auto) Eos # (Auto) Baso # (Auto) Seg Neutrophils % Seg Neuts % (Manual) Lymphocytes % (Manual) Seg Neutrophils # Seg Neutrophils # Man Lymphocytes # (Manual) D-Dimer ABG pH POC ABG pCO2 POC ABG pO2 ABG pO2 ABG HCO3 ABG O2 Saturation ABG Base Excess ABG Oxyhemoglobin ABG Sodium ABG Chloride ABG Glucose Oxyhemoglobin Carboxyhemoglobin Sodium 132 L Potassium Chloride 94.4 L Carbon Dioxide BUN Creatinine 0.2 L D Glucose 140 H POC Glucose 141 H 171 H Hemoglobin A1c Magnesium Ferritin AST ALT Alkaline Phosphatase Lactate Dehydrogenase C-Reactive Protein Total Protein Albumin Arterial Blood Glucose Coronavirus (PCR) 04/29/21 04/29/21 04/29/21 06:05 07:24 11:36 WBC MCV MCH MCHC 35 H RDW 15.9 H Lymph % (Auto) Foster % (Auto) Eos % (Auto) Lymph # (Auto) Foster # (Auto) Eos # (Auto) Baso # (Auto) Seg Neutrophils % Seg Neuts % (Manual) Lymphocytes % (Manual) Seg Neutrophils # Seg Neutrophils # Man Lymphocytes # (Manual) D-Dimer ABG pH POC ABG pCO2 POC ABG pO2 ABG pO2 ABG HCO3 ABG O2 Saturation ABG Base Excess ABG Oxyhemoglobin ABG Sodium ABG Chloride ABG Glucose Oxyhemoglobin Carboxyhemoglobin Sodium Potassium Chloride Carbon Dioxide BUN Creatinine Glucose POC Glucose 141 H 220 H Hemoglobin A1c Magnesium Ferritin AST ALT Alkaline Phosphatase Lactate Dehydrogenase C-Reactive Protein Total Protein Albumin Arterial Blood Glucose Coronavirus (PCR) 04/29/21 04/29/21 04/29/21 14:23 15:30 17:06 WBC MCV MCH MCHC RDW Lymph % (Auto) Foster % (Auto) Eos % (Auto) Lymph # (Auto) Foster # (Auto) Eos # (Auto) Baso # (Auto) Seg Neutrophils % Seg Neuts % (Manual) Lymphocytes % (Manual) Seg Neutrophils # Seg Neutrophils # Man Lymphocytes # (Manual) D-Dimer ABG pH POC ABG pCO2 POC ABG pO2 ABG pO2 52.6 L ABG HCO3 ABG O2 Saturation 86.4 L ABG Base Excess ABG Oxyhemoglobin ABG Sodium ABG Chloride ABG Glucose Oxyhemoglobin 84.6 L Carboxyhemoglobin Sodium Potassium Chloride Carbon Dioxide BUN Creatinine Glucose POC Glucose 173 H 158 H Hemoglobin A1c Magnesium Ferritin AST ALT Alkaline Phosphatase Lactate Dehydrogenase C-Reactive Protein Total Protein Albumin Arterial Blood Glucose Coronavirus (PCR) 04/29/21 04/30/21 04/30/21 21:27 07:16 08:00 WBC MCV MCH MCHC RDW 16.1 H Lymph % (Auto) Foster % (Auto) Eos % (Auto) Lymph # (Auto) Foster # (Auto) Eos # (Auto) Baso # (Auto) Seg Neutrophils % Seg Neuts % (Manual) Lymphocytes % (Manual) Seg Neutrophils # Seg Neutrophils # Man Lymphocytes # (Manual) D-Dimer ABG pH POC ABG pCO2 POC ABG pO2 ABG pO2 ABG HCO3 ABG O2 Saturation ABG Base Excess ABG Oxyhemoglobin ABG Sodium ABG Chloride ABG Glucose Oxyhemoglobin Carboxyhemoglobin Sodium Potassium Chloride Carbon Dioxide BUN Creatinine Glucose POC Glucose 244 H 175 H Hemoglobin A1c Magnesium Ferritin AST ALT Alkaline Phosphatase Lactate Dehydrogenase C-Reactive Protein Total Protein Albumin Arterial Blood Glucose Coronavirus (PCR) 04/30/21 04/30/21 04/30/21 08:00 08:00 11:03 WBC MCV MCH MCHC RDW Lymph % (Auto) Foster % (Auto) Eos % (Auto) Lymph # (Auto) Foster # (Auto) Eos # (Auto) Baso # (Auto) Seg Neutrophils % Seg Neuts % (Manual) Lymphocytes % (Manual) Seg Neutrophils # Seg Neutrophils # Man Lymphocytes # (Manual) D-Dimer 1796.87 H ABG pH POC ABG pCO2 POC ABG pO2 ABG pO2 ABG HCO3 ABG O2 Saturation ABG Base Excess ABG Oxyhemoglobin ABG Sodium ABG Chloride ABG Glucose Oxyhemoglobin Carboxyhemoglobin Sodium 135 L Potassium Chloride 96.3 L Carbon Dioxide BUN Creatinine 0.2 L Glucose 153 H POC Glucose 183 H Hemoglobin A1c Magnesium Ferritin AST 41 H ALT 76 H Alkaline Phosphatase 160 H Lactate Dehydrogenase 522 H C-Reactive Protein Total Protein 6.1 L Albumin 3.1 L Arterial Blood Glucose Coronavirus (PCR) 04/30/21 04/30/21 05/01/21 17:04 22:17 05:39 WBC MCV MCH MCHC RDW Lymph % (Auto) Foster % (Auto) Eos % (Auto) Lymph # (Auto) Foster # (Auto) Eos # (Auto) Baso # (Auto) Seg Neutrophils % Seg Neuts % (Manual) Lymphocytes % (Manual) Seg Neutrophils # Seg Neutrophils # Man Lymphocytes # (Manual) D-Dimer ABG pH POC ABG pCO2 POC ABG pO2 ABG pO2 ABG HCO3 ABG O2 Saturation ABG Base Excess ABG Oxyhemoglobin ABG Sodium ABG Chloride ABG Glucose Oxyhemoglobin Carboxyhemoglobin Sodium 133 L Potassium Chloride 92.1 L Carbon Dioxide BUN 24 H Creatinine 0.4 L D Glucose 269 H POC Glucose 167 H 208 H Hemoglobin A1c Magnesium Ferritin AST ALT 66 H Alkaline Phosphatase 142 H Lactate Dehydrogenase C-Reactive Protein Total Protein Albumin 3.2 L Arterial Blood Glucose Coronavirus (PCR) 05/01/21 05/01/21 05/01/21 05:39 05:39 07:45 WBC MCV MCH MCHC RDW 16.0 H Lymph % (Auto) Foster % (Auto) Eos % (Auto) Lymph # (Auto) Foster # (Auto) Eos # (Auto) Baso # (Auto) Seg Neutrophils % Seg Neuts % (Manual) Lymphocytes % (Manual) Seg Neutrophils # Seg Neutrophils # Man Lymphocytes # (Manual) D-Dimer 3984.95 H ABG pH POC ABG pCO2 POC ABG pO2 ABG pO2 ABG HCO3 ABG O2 Saturation ABG Base Excess ABG Oxyhemoglobin ABG Sodium ABG Chloride ABG Glucose Oxyhemoglobin Carboxyhemoglobin Sodium Potassium Chloride Carbon Dioxide BUN Creatinine Glucose POC Glucose 229 H Hemoglobin A1c Magnesium Ferritin AST ALT Alkaline Phosphatase Lactate Dehydrogenase C-Reactive Protein Total Protein Albumin Arterial Blood Glucose Coronavirus (PCR) 05/01/21 05/01/21 05/01/21 12:10 15:46 21:06 WBC MCV MCH MCHC RDW Lymph % (Auto) Foster % (Auto) Eos % (Auto) Lymph # (Auto) Foster # (Auto) Eos # (Auto) Baso # (Auto) Seg Neutrophils % Seg Neuts % (Manual) Lymphocytes % (Manual) Seg Neutrophils # Seg Neutrophils # Man Lymphocytes # (Manual) D-Dimer ABG pH POC ABG pCO2 POC ABG pO2 ABG pO2 ABG HCO3 ABG O2 Saturation ABG Base Excess ABG Oxyhemoglobin ABG Sodium ABG Chloride ABG Glucose Oxyhemoglobin Carboxyhemoglobin Sodium Potassium Chloride Carbon Dioxide BUN Creatinine Glucose POC Glucose 296 H 279 H 232 H Hemoglobin A1c Magnesium Ferritin AST ALT Alkaline Phosphatase Lactate Dehydrogenase C-Reactive Protein Total Protein Albumin Arterial Blood Glucose Coronavirus (PCR) 05/02/21 05/02/21 05/02/21 04:55 04:55 04:55 WBC MCV MCH MCHC RDW 16.1 H Lymph % (Auto) Foster % (Auto) Eos % (Auto) Lymph # (Auto) Foster # (Auto) Eos # (Auto) Baso # (Auto) Seg Neutrophils % Seg Neuts % (Manual) Lymphocytes % (Manual) Seg Neutrophils # Seg Neutrophils # Man Lymphocytes # (Manual) D-Dimer 1401.08 H ABG pH POC ABG pCO2 POC ABG pO2 ABG pO2 ABG HCO3 ABG O2 Saturation ABG Base Excess ABG Oxyhemoglobin ABG Sodium ABG Chloride ABG Glucose Oxyhemoglobin Carboxyhemoglobin Sodium 131 L Potassium Chloride 95.5 L Carbon Dioxide BUN 20 H Creatinine 0.3 L Glucose 288 H POC Glucose Hemoglobin A1c Magnesium Ferritin AST ALT Alkaline Phosphatase Lactate Dehydrogenase C-Reactive Protein Total Protein 6.0 L Albumin 3.1 L Arterial Blood Glucose Coronavirus (PCR) 05/02/21 05/02/21 05/02/21 07:53 11:45 15:25 WBC MCV MCH MCHC RDW Lymph % (Auto) Foster % (Auto) Eos % (Auto) Lymph # (Auto) Foster # (Auto) Eos # (Auto) Baso # (Auto) Seg Neutrophils % Seg Neuts % (Manual) Lymphocytes % (Manual) Seg Neutrophils # Seg Neutrophils # Man Lymphocytes # (Manual) D-Dimer ABG pH POC ABG pCO2 POC ABG pO2 ABG pO2 ABG HCO3 ABG O2 Saturation ABG Base Excess ABG Oxyhemoglobin ABG Sodium ABG Chloride ABG Glucose Oxyhemoglobin Carboxyhemoglobin Sodium Potassium Chloride Carbon Dioxide BUN Creatinine Glucose POC Glucose 180 H 228 H 275 H Hemoglobin A1c Magnesium Ferritin AST ALT Alkaline Phosphatase Lactate Dehydrogenase C-Reactive Protein Total Protein Albumin Arterial Blood Glucose Coronavirus (PCR) 05/02/21 05/03/21 05/03/21 22:56 04:30 04:49 WBC MCV MCH MCHC RDW Lymph % (Auto) Foster % (Auto) Eos % (Auto) Lymph # (Auto) Foster # (Auto) Eos # (Auto) Baso # (Auto) Seg Neutrophils % Seg Neuts % (Manual) Lymphocytes % (Manual) Seg Neutrophils # Seg Neutrophils # Man Lymphocytes # (Manual) D-Dimer ABG pH 7.229 L POC ABG pCO2 POC ABG pO2 65.3 L ABG pO2 ABG HCO3 ABG O2 Saturation ABG Base Excess ABG Oxyhemoglobin 87.8 L ABG Sodium 133.0 L ABG Chloride 97.0 L ABG Glucose 403 H Oxyhemoglobin Carboxyhemoglobin Sodium 130 L Potassium Chloride 94.9 L Carbon Dioxide BUN 20 H Creatinine 0.5 L D Glucose 359 H POC Glucose 293 H Hemoglobin A1c Magnesium Ferritin AST 54 H ALT 75 H Alkaline Phosphatase 138 H Lactate Dehydrogenase C-Reactive Protein Total Protein Albumin 3.6 L Arterial Blood Glucose 403 H Coronavirus (PCR) 05/03/21 05/03/21 05/03/21 05:27 11:26 17:57 WBC MCV MCH MCHC RDW Lymph % (Auto) Foster % (Auto) Eos % (Auto) Lymph # (Auto) Foster # (Auto) Eos # (Auto) Baso # (Auto) Seg Neutrophils % Seg Neuts % (Manual) Lymphocytes % (Manual) Seg Neutrophils # Seg Neutrophils # Man Lymphocytes # (Manual) D-Dimer ABG pH POC ABG pCO2 POC ABG pO2 ABG pO2 ABG HCO3 ABG O2 Saturation ABG Base Excess ABG Oxyhemoglobin ABG Sodium ABG Chloride ABG Glucose Oxyhemoglobin Carboxyhemoglobin Sodium Potassium Chloride Carbon Dioxide BUN Creatinine Glucose POC Glucose 361 H 297 H 226 H Hemoglobin A1c Magnesium Ferritin AST ALT Alkaline Phosphatase Lactate Dehydrogenase C-Reactive Protein Total Protein Albumin Arterial Blood Glucose Coronavirus (PCR) 05/03/21 05/04/21 05/04/21 23:12 05:12 07:30 WBC MCV MCH MCHC RDW Lymph % (Auto) Foster % (Auto) Eos % (Auto) Lymph # (Auto) Foster # (Auto) Eos # (Auto) Baso # (Auto) Seg Neutrophils % Seg Neuts % (Manual) Lymphocytes % (Manual) Seg Neutrophils # Seg Neutrophils # Man Lymphocytes # (Manual) D-Dimer ABG pH POC ABG pCO2 POC ABG pO2 ABG pO2 ABG HCO3 ABG O2 Saturation ABG Base Excess ABG Oxyhemoglobin ABG Sodium ABG Chloride ABG Glucose Oxyhemoglobin Carboxyhemoglobin Sodium Potassium Chloride Carbon Dioxide BUN Creatinine Glucose POC Glucose 282 H 285 H 254 H Hemoglobin A1c Magnesium Ferritin AST ALT Alkaline Phosphatase Lactate Dehydrogenase C-Reactive Protein Total Protein Albumin Arterial Blood Glucose Coronavirus (PCR) 05/04/21 05/04/21 05/04/21 08:58 11:45 16:07 WBC MCV MCH MCHC RDW Lymph % (Auto) Foster % (Auto) Eos % (Auto) Lymph # (Auto) Foster # (Auto) Eos # (Auto) Baso # (Auto) Seg Neutrophils % Seg Neuts % (Manual) Lymphocytes % (Manual) Seg Neutrophils # Seg Neutrophils # Man Lymphocytes # (Manual) D-Dimer ABG pH POC ABG pCO2 POC ABG pO2 ABG pO2 ABG HCO3 ABG O2 Saturation ABG Base Excess ABG Oxyhemoglobin ABG Sodium ABG Chloride ABG Glucose Oxyhemoglobin Carboxyhemoglobin Sodium 134 L Potassium Chloride Carbon Dioxide BUN 20 H Creatinine 0.3 L Glucose 267 H POC Glucose 244 H 297 H Hemoglobin A1c Magnesium Ferritin AST ALT Alkaline Phosphatase Lactate Dehydrogenase C-Reactive Protein Total Protein 6.0 L Albumin 3.2 L Arterial Blood Glucose Coronavirus (PCR) 05/04/21 05/05/21 05/05/21 23:32 05:00 05:13 WBC MCV MCH MCHC RDW Lymph % (Auto) Foster % (Auto) Eos % (Auto) Lymph # (Auto) Foster # (Auto) Eos # (Auto) Baso # (Auto) Seg Neutrophils % Seg Neuts % (Manual) Lymphocytes % (Manual) Seg Neutrophils # Seg Neutrophils # Man Lymphocytes # (Manual) D-Dimer ABG pH POC ABG pCO2 POC ABG pO2 ABG pO2 ABG HCO3 ABG O2 Saturation ABG Base Excess ABG Oxyhemoglobin ABG Sodium ABG Chloride ABG Glucose Oxyhemoglobin Carboxyhemoglobin Sodium 132 L Potassium Chloride 96.4 L Carbon Dioxide BUN 22 H Creatinine 0.3 L Glucose 228 H POC Glucose 154 H 260 H Hemoglobin A1c Magnesium Ferritin AST ALT 67 H Alkaline Phosphatase Lactate Dehydrogenase C-Reactive Protein Total Protein 6.1 L Albumin 3.2 L Arterial Blood Glucose Coronavirus (PCR) 05/05/21 05/05/21 05/05/21 11:32 17:49 23:07 WBC MCV MCH MCHC RDW Lymph % (Auto) Foster % (Auto) Eos % (Auto) Lymph # (Auto) Foster # (Auto) Eos # (Auto) Baso # (Auto) Seg Neutrophils % Seg Neuts % (Manual) Lymphocytes % (Manual) Seg Neutrophils # Seg Neutrophils # Man Lymphocytes # (Manual) D-Dimer ABG pH POC ABG pCO2 POC ABG pO2 ABG pO2 ABG HCO3 ABG O2 Saturation ABG Base Excess ABG Oxyhemoglobin ABG Sodium ABG Chloride ABG Glucose Oxyhemoglobin Carboxyhemoglobin Sodium Potassium Chloride Carbon Dioxide BUN Creatinine Glucose POC Glucose 279 H 308 H 213 H Hemoglobin A1c Magnesium Ferritin AST ALT Alkaline Phosphatase Lactate Dehydrogenase C-Reactive Protein Total Protein Albumin Arterial Blood Glucose Coronavirus (PCR) 05/06/21 05/06/21 05/06/21 05:00 05:00 05:20 WBC MCV MCH MCHC RDW 16.8 H Lymph % (Auto) Foster % (Auto) Eos % (Auto) Lymph # (Auto) Foster # (Auto) Eos # (Auto) Baso # (Auto) Seg Neutrophils % Seg Neuts % (Manual) 99.0 H Lymphocytes % (Manual) Seg Neutrophils # Seg Neutrophils # Man 10.9 H Lymphocytes # (Manual) 0.0 L D-Dimer ABG pH POC ABG pCO2 POC ABG pO2 ABG pO2 ABG HCO3 ABG O2 Saturation ABG Base Excess ABG Oxyhemoglobin ABG Sodium ABG Chloride ABG Glucose Oxyhemoglobin Carboxyhemoglobin Sodium 133 L Potassium Chloride Carbon Dioxide BUN 21 H Creatinine 0.3 L Glucose 259 H POC Glucose 308 H Hemoglobin A1c Magnesium Ferritin AST ALT Alkaline Phosphatase Lactate Dehydrogenase C-Reactive Protein Total Protein Albumin 3.2 L Arterial Blood Glucose Coronavirus (PCR) 05/06/21 05/06/21 05/06/21 11:24 17:54 21:32 WBC MCV MCH MCHC RDW Lymph % (Auto) Foster % (Auto) Eos % (Auto) Lymph # (Auto) Foster # (Auto) Eos # (Auto) Baso # (Auto) Seg Neutrophils % Seg Neuts % (Manual) Lymphocytes % (Manual) Seg Neutrophils # Seg Neutrophils # Man Lymphocytes # (Manual) D-Dimer ABG pH POC ABG pCO2 POC ABG pO2 ABG pO2 ABG HCO3 ABG O2 Saturation ABG Base Excess ABG Oxyhemoglobin ABG Sodium ABG Chloride ABG Glucose Oxyhemoglobin Carboxyhemoglobin Sodium Potassium Chloride Carbon Dioxide BUN Creatinine Glucose POC Glucose 262 H 124 H 246 H Hemoglobin A1c Magnesium Ferritin AST ALT Alkaline Phosphatase Lactate Dehydrogenase C-Reactive Protein Total Protein Albumin Arterial Blood Glucose Coronavirus (PCR) 05/06/21 05/07/21 05/07/21 23:10 04:54 04:54 WBC MCV MCH MCHC RDW Lymph % (Auto) Foster % (Auto) Eos % (Auto) Lymph # (Auto) Foster # (Auto) Eos # (Auto) Baso # (Auto) Seg Neutrophils % Seg Neuts % (Manual) Lymphocytes % (Manual) Seg Neutrophils # Seg Neutrophils # Man Lymphocytes # (Manual) D-Dimer 1609.28 H ABG pH POC ABG pCO2 POC ABG pO2 ABG pO2 ABG HCO3 ABG O2 Saturation ABG Base Excess ABG Oxyhemoglobin ABG Sodium ABG Chloride ABG Glucose Oxyhemoglobin Carboxyhemoglobin Sodium 136 L Potassium Chloride Carbon Dioxide BUN 23 H Creatinine 0.3 L Glucose 110 H POC Glucose 249 H Hemoglobin A1c Magnesium Ferritin AST ALT Alkaline Phosphatase Lactate Dehydrogenase C-Reactive Protein Total Protein 6.2 L Albumin 3.0 L Arterial Blood Glucose Coronavirus (PCR) 05/07/21 05/07/21 05/07/21 04:54 04:54 11:41 WBC MCV MCH MCHC RDW Lymph % (Auto) Foster % (Auto) Eos % (Auto) Lymph # (Auto) Foster # (Auto) Eos # (Auto) Baso # (Auto) Seg Neutrophils % Seg Neuts % (Manual) Lymphocytes % (Manual) Seg Neutrophils # Seg Neutrophils # Man Lymphocytes # (Manual) D-Dimer ABG pH POC ABG pCO2 POC ABG pO2 ABG pO2 ABG HCO3 ABG O2 Saturation ABG Base Excess ABG Oxyhemoglobin ABG Sodium ABG Chloride ABG Glucose Oxyhemoglobin Carboxyhemoglobin Sodium Potassium Chloride Carbon Dioxide BUN Creatinine Glucose POC Glucose 118 H Hemoglobin A1c Magnesium Ferritin 296.1 H AST ALT Alkaline Phosphatase Lactate Dehydrogenase 724 H C-Reactive Protein Total Protein Albumin Arterial Blood Glucose Coronavirus (PCR) 05/07/21 05/07/21 05/08/21 16:43 22:34 06:44 WBC MCV MCH MCHC RDW Lymph % (Auto) Foster % (Auto) Eos % (Auto) Lymph # (Auto) Foster # (Auto) Eos # (Auto) Baso # (Auto) Seg Neutrophils % Seg Neuts % (Manual) Lymphocytes % (Manual) Seg Neutrophils # Seg Neutrophils # Man Lymphocytes # (Manual) D-Dimer ABG pH POC ABG pCO2 POC ABG pO2 ABG pO2 ABG HCO3 ABG O2 Saturation ABG Base Excess ABG Oxyhemoglobin ABG Sodium ABG Chloride ABG Glucose Oxyhemoglobin Carboxyhemoglobin Sodium Potassium Chloride Carbon Dioxide BUN Creatinine Glucose POC Glucose 159 H 233 H 235 H Hemoglobin A1c Magnesium Ferritin AST ALT Alkaline Phosphatase Lactate Dehydrogenase C-Reactive Protein Total Protein Albumin Arterial Blood Glucose Coronavirus (PCR) 05/08/21 05/08/21 05/08/21 07:49 11:56 17:13 WBC MCV MCH MCHC RDW Lymph % (Auto) Foster % (Auto) Eos % (Auto) Lymph # (Auto) Foster # (Auto) Eos # (Auto) Baso # (Auto) Seg Neutrophils % Seg Neuts % (Manual) Lymphocytes % (Manual) Seg Neutrophils # Seg Neutrophils # Man Lymphocytes # (Manual) D-Dimer ABG pH POC ABG pCO2 POC ABG pO2 ABG pO2 ABG HCO3 ABG O2 Saturation ABG Base Excess ABG Oxyhemoglobin ABG Sodium ABG Chloride ABG Glucose Oxyhemoglobin Carboxyhemoglobin Sodium Potassium Chloride Carbon Dioxide BUN Creatinine Glucose POC Glucose 219 H 184 H 182 H Hemoglobin A1c Magnesium Ferritin AST ALT Alkaline Phosphatase Lactate Dehydrogenase C-Reactive Protein Total Protein Albumin Arterial Blood Glucose Coronavirus (PCR) 05/08/21 05/09/21 05/09/21 23:35 05:20 05:20 WBC MCV MCH MCHC RDW Lymph % (Auto) Foster % (Auto) Eos % (Auto) Lymph # (Auto) Foster # (Auto) Eos # (Auto) Baso # (Auto) Seg Neutrophils % Seg Neuts % (Manual) Lymphocytes % (Manual) Seg Neutrophils # Seg Neutrophils # Man Lymphocytes # (Manual) D-Dimer 1003.87 H ABG pH POC ABG pCO2 POC ABG pO2 ABG pO2 ABG HCO3 ABG O2 Saturation ABG Base Excess ABG Oxyhemoglobin ABG Sodium ABG Chloride ABG Glucose Oxyhemoglobin Carboxyhemoglobin Sodium Potassium Chloride Carbon Dioxide BUN Creatinine Glucose POC Glucose 198 H Hemoglobin A1c Magnesium Ferritin 378.7 H AST ALT Alkaline Phosphatase Lactate Dehydrogenase C-Reactive Protein Total Protein Albumin Arterial Blood Glucose Coronavirus (PCR) 05/09/21 05/09/21 05/09/21 05:20 06:04 12:53 WBC MCV MCH MCHC RDW Lymph % (Auto) Foster % (Auto) Eos % (Auto) Lymph # (Auto) Foster # (Auto) Eos # (Auto) Baso # (Auto) Seg Neutrophils % Seg Neuts % (Manual) Lymphocytes % (Manual) Seg Neutrophils # Seg Neutrophils # Man Lymphocytes # (Manual) D-Dimer ABG pH POC ABG pCO2 POC ABG pO2 ABG pO2 ABG HCO3 ABG O2 Saturation ABG Base Excess ABG Oxyhemoglobin ABG Sodium ABG Chloride ABG Glucose Oxyhemoglobin Carboxyhemoglobin Sodium Potassium Chloride Carbon Dioxide BUN Creatinine Glucose POC Glucose 159 H 180 H Hemoglobin A1c Magnesium Ferritin AST ALT Alkaline Phosphatase Lactate Dehydrogenase 558 H C-Reactive Protein 2.40 H Total Protein Albumin Arterial Blood Glucose Coronavirus (PCR) 05/09/21 05/09/21 05/10/21 16:43 21:27 10:18 WBC MCV MCH MCHC RDW Lymph % (Auto) Foster % (Auto) Eos % (Auto) Lymph # (Auto) Foster # (Auto) Eos # (Auto) Baso # (Auto) Seg Neutrophils % Seg Neuts % (Manual) Lymphocytes % (Manual) Seg Neutrophils # Seg Neutrophils # Man Lymphocytes # (Manual) D-Dimer ABG pH POC ABG pCO2 POC ABG pO2 ABG pO2 ABG HCO3 ABG O2 Saturation ABG Base Excess ABG Oxyhemoglobin ABG Sodium ABG Chloride ABG Glucose Oxyhemoglobin Carboxyhemoglobin Sodium Potassium Chloride Carbon Dioxide BUN Creatinine Glucose POC Glucose 212 H 285 H 261 H Hemoglobin A1c Magnesium Ferritin AST ALT Alkaline Phosphatase Lactate Dehydrogenase C-Reactive Protein Total Protein Albumin Arterial Blood Glucose Coronavirus (PCR) 05/10/21 05/10/21 05/11/21 17:58 18:02 00:29 WBC MCV MCH MCHC RDW Lymph % (Auto) Foster % (Auto) Eos % (Auto) Lymph # (Auto) Foster # (Auto) Eos # (Auto) Baso # (Auto) Seg Neutrophils % Seg Neuts % (Manual) Lymphocytes % (Manual) Seg Neutrophils # Seg Neutrophils # Man Lymphocytes # (Manual) D-Dimer ABG pH POC ABG pCO2 POC ABG pO2 ABG pO2 ABG HCO3 ABG O2 Saturation ABG Base Excess ABG Oxyhemoglobin ABG Sodium ABG Chloride ABG Glucose Oxyhemoglobin Carboxyhemoglobin Sodium Potassium Chloride Carbon Dioxide BUN Creatinine Glucose POC Glucose 213 H 179 H 149 H Hemoglobin A1c Magnesium Ferritin AST ALT Alkaline Phosphatase Lactate Dehydrogenase C-Reactive Protein Total Protein Albumin Arterial Blood Glucose Coronavirus (PCR) 05/11/21 05/11/21 05/11/21 05:22 11:32 17:00 WBC 14.9 H MCV MCH MCHC RDW 18.9 H Lymph % (Auto) 4.9 L Foster % (Auto) Eos % (Auto) Lymph # (Auto) 0.7 L Foster # (Auto) Eos # (Auto) Baso # (Auto) 0.2 H Seg Neutrophils % Seg Neuts % (Manual) Lymphocytes % (Manual) Seg Neutrophils # 13.3 H Seg Neutrophils # Man Lymphocytes # (Manual) D-Dimer ABG pH POC ABG pCO2 POC ABG pO2 ABG pO2 ABG HCO3 ABG O2 Saturation ABG Base Excess ABG Oxyhemoglobin ABG Sodium ABG Chloride ABG Glucose Oxyhemoglobin Carboxyhemoglobin Sodium Potassium Chloride Carbon Dioxide BUN Creatinine Glucose POC Glucose 162 H 179 H Hemoglobin A1c Magnesium Ferritin AST ALT Alkaline Phosphatase Lactate Dehydrogenase C-Reactive Protein Total Protein Albumin Arterial Blood Glucose Coronavirus (PCR) 0805/11/21 05/11/21 17:00 17:33 22:03 WBC MCV MCH MCHC RDW Lymph % (Auto) Foster % (Auto) Eos % (Auto) Lymph # (Auto) Foster # (Auto) Eos # (Auto) Baso # (Auto) Seg Neutrophils % Seg Neuts % (Manual) Lymphocytes % (Manual) Seg Neutrophils # Seg Neutrophils # Man Lymphocytes # (Manual) D-Dimer ABG pH POC ABG pCO2 POC ABG pO2 ABG pO2 ABG HCO3 ABG O2 Saturation ABG Base Excess ABG Oxyhemoglobin ABG Sodium ABG Chloride ABG Glucose Oxyhemoglobin Carboxyhemoglobin Sodium 135 L Potassium Chloride 97.3 L Carbon Dioxide BUN 21 H Creatinine 0.3 L Glucose 133 H POC Glucose 140 H 282 H Hemoglobin A1c Magnesium Ferritin AST ALT 60 H Alkaline Phosphatase Lactate Dehydrogenase C-Reactive Protein Total Protein Albumin 3.1 L Arterial Blood Glucose Coronavirus (PCR) 05/12/21 05/12/21 05/12/21 04:05 04:05 04:05 WBC MCV MCH MCHC RDW 18.4 H Lymph % (Auto) Foster % (Auto) Eos % (Auto) Lymph # (Auto) Foster # (Auto) Eos # (Auto) Baso # (Auto) Seg Neutrophils % Seg Neuts % (Manual) 94.0 H Lymphocytes % (Manual) 4.0 L Seg Neutrophils # Seg Neutrophils # Man Lymphocytes # (Manual) 0.3 L D-Dimer ABG pH POC ABG pCO2 POC ABG pO2 ABG pO2 ABG HCO3 ABG O2 Saturation ABG Base Excess ABG Oxyhemoglobin ABG Sodium ABG Chloride ABG Glucose Oxyhemoglobin Carboxyhemoglobin Sodium 136 L Potassium Chloride Carbon Dioxide BUN 18 H Creatinine 0.2 L Glucose 142 H POC Glucose Hemoglobin A1c Magnesium Ferritin 350.7 H AST ALT Alkaline Phosphatase Lactate Dehydrogenase 546 H C-Reactive Protein Total Protein 6.1 L Albumin 3.0 L Arterial Blood Glucose Coronavirus (PCR) 05/12/21 05/12/21 05/12/21 05:11 11:17 16:27 WBC MCV MCH MCHC RDW Lymph % (Auto) Foster % (Auto) Eos % (Auto) Lymph # (Auto) Foster # (Auto) Eos # (Auto) Baso # (Auto) Seg Neutrophils % Seg Neuts % (Manual) Lymphocytes % (Manual) Seg Neutrophils # Seg Neutrophils # Man Lymphocytes # (Manual) D-Dimer ABG pH POC ABG pCO2 POC ABG pO2 ABG pO2 ABG HCO3 ABG O2 Saturation ABG Base Excess ABG Oxyhemoglobin ABG Sodium ABG Chloride ABG Glucose Oxyhemoglobin Carboxyhemoglobin Sodium Potassium Chloride Carbon Dioxide BUN Creatinine Glucose POC Glucose 152 H 190 H 261 H Hemoglobin A1c Magnesium Ferritin AST ALT Alkaline Phosphatase Lactate Dehydrogenase C-Reactive Protein Total Protein Albumin Arterial Blood Glucose Coronavirus (PCR) 05/12/21 05/13/21 05/13/21 20:55 11:08 21:41 WBC MCV MCH MCHC RDW Lymph % (Auto) Foster % (Auto) Eos % (Auto) Lymph # (Auto) Foster # (Auto) Eos # (Auto) Baso # (Auto) Seg Neutrophils % Seg Neuts % (Manual) Lymphocytes % (Manual) Seg Neutrophils # Seg Neutrophils # Man Lymphocytes # (Manual) D-Dimer ABG pH POC ABG pCO2 POC ABG pO2 ABG pO2 ABG HCO3 ABG O2 Saturation ABG Base Excess ABG Oxyhemoglobin ABG Sodium ABG Chloride ABG Glucose Oxyhemoglobin Carboxyhemoglobin Sodium Potassium Chloride Carbon Dioxide BUN Creatinine Glucose POC Glucose 231 H 106 H 174 H Hemoglobin A1c Magnesium Ferritin AST ALT Alkaline Phosphatase Lactate Dehydrogenase C-Reactive Protein Total Protein Albumin Arterial Blood Glucose Coronavirus (PCR) 05/14/21 05/14/21 05/14/21 00:53 02:23 06:06 WBC MCV MCH MCHC RDW Lymph % (Auto) [place] % (Auto) Eos % (Auto) Lymph # (Auto) [place] # (Auto) Eos # (Auto) Baso # (Auto) Seg Neutrophils % Seg Neuts % (Manual) Lymphocytes % (Manual) Seg Neutrophils # Seg Neutrophils # Man Lymphocytes # (Manual) D-Dimer ABG pH POC ABG pCO2 POC ABG pO2 ABG pO2 130.3 H ABG HCO3 30.6 H ABG O2 Saturation ABG Base Excess 4.9 H ABG Oxyhemoglobin ABG Sodium ABG Chloride ABG Glucose Oxyhemoglobin Carboxyhemoglobin Sodium Potassium Chloride Carbon Dioxide BUN Creatinine Glucose POC Glucose 229 H 119 H Hemoglobin A1c Magnesium Ferritin AST ALT Alkaline Phosphatase Lactate Dehydrogenase C-Reactive Protein Total Protein Albumin Arterial Blood Glucose Coronavirus (PCR) 05/14/21 05/14/21 05/14/21 07:13 07:13 07:13 WBC MCV MCH MCHC RDW Lymph % (Auto) [place] % (Auto) Eos % (Auto) Lymph # (Auto) Foster # (Auto) Eos # (Auto) Baso # (Auto) Seg Neutrophils % Seg Neuts % (Manual) Lymphocytes % (Manual) Seg Neutrophils # Seg Neutrophils # Man Lymphocytes # (Manual) D-Dimer 712.80 H ABG pH POC ABG pCO2 POC ABG pO2 ABG pO2 ABG HCO3 ABG O2 Saturation ABG Base Excess ABG Oxyhemoglobin ABG Sodium ABG Chloride ABG Glucose Oxyhemoglobin Carboxyhemoglobin Sodium 133 L Potassium Chloride 95.5 L Carbon Dioxide 32 H BUN Creatinine 0.2 L Glucose 137 H POC Glucose Hemoglobin A1c Magnesium Ferritin 283.5 H AST ALT 63 H Alkaline Phosphatase Lactate Dehydrogenase 563 H C-Reactive Protein Total Protein 6.1 L Albumin 3.0 L Arterial Blood Glucose Coronavirus (PCR) 05/14/21 05/14/21 05/14/21 12:21 15:33 21:50 WBC MCV MCH MCHC RDW Lymph % (Auto) [place] % (Auto) Eos % (Auto) Lymph # (Auto) [place] # (Auto) Eos # (Auto) Baso # (Auto) Seg Neutrophils % Seg Neuts % (Manual) Lymphocytes % (Manual) Seg Neutrophils # Seg Neutrophils # Man Lymphocytes # (Manual) D-Dimer ABG pH POC ABG pCO2 POC ABG pO2 ABG pO2 ABG HCO3 ABG O2 Saturation ABG Base Excess ABG Oxyhemoglobin ABG Sodium ABG Chloride ABG Glucose Oxyhemoglobin Carboxyhemoglobin Sodium Potassium Chloride Carbon Dioxide BUN Creatinine Glucose POC Glucose 143 H 204 H 202 H Hemoglobin A1c Magnesium Ferritin AST ALT Alkaline Phosphatase Lactate Dehydrogenase C-Reactive Protein Total Protein Albumin Arterial Blood Glucose Coronavirus (PCR) 05/15/21 05/15/21 05/15/21 05:05 11:12 16:39 WBC MCV MCH MCHC RDW Lymph % (Auto) [place] % (Auto) Eos % (Auto) Lymph # (Auto) Foster # (Auto) Eos # (Auto) Baso # (Auto) Seg Neutrophils % Seg Neuts % (Manual) Lymphocytes % (Manual) Seg Neutrophils # Seg Neutrophils # Man Lymphocytes # (Manual) D-Dimer ABG pH POC ABG pCO2 POC ABG pO2 ABG pO2 ABG HCO3 ABG O2 Saturation ABG Base Excess ABG Oxyhemoglobin ABG Sodium ABG Chloride ABG Glucose Oxyhemoglobin Carboxyhemoglobin Sodium Potassium Chloride Carbon Dioxide BUN Creatinine Glucose POC Glucose 125 H 201 H 241 H Hemoglobin A1c Magnesium Ferritin AST ALT Alkaline Phosphatase Lactate Dehydrogenase C-Reactive Protein Total Protein Albumin Arterial Blood Glucose Coronavirus (PCR) 05/15/21 05/16/21 05/16/21 21:31 05:04 10:40 WBC MCV MCH MCHC RDW Lymph % (Auto) [place] % (Auto) Eos % (Auto) Lymph # (Auto) [place] # (Auto) Eos # (Auto) Baso # (Auto) Seg Neutrophils % Seg Neuts % (Manual) Lymphocytes % (Manual) Seg Neutrophils # Seg Neutrophils # Man Lymphocytes # (Manual) D-Dimer ABG pH POC ABG pCO2 POC ABG pO2 ABG pO2 ABG HCO3 ABG O2 Saturation ABG Base Excess ABG Oxyhemoglobin ABG Sodium ABG Chloride ABG Glucose Oxyhemoglobin Carboxyhemoglobin Sodium Potassium Chloride Carbon Dioxide BUN Creatinine Glucose POC Glucose 234 H 123 H 231 H Hemoglobin A1c Magnesium Ferritin AST ALT Alkaline Phosphatase Lactate Dehydrogenase C-Reactive Protein Total Protein Albumin Arterial Blood Glucose Coronavirus (PCR) 05/16/21 05/16/21 05/17/21 18:23 21:29 06:20 WBC MCV MCH MCHC RDW 18.8 H Lymph % (Auto) 10.2 L [place] % (Auto) Eos % (Auto) Lymph # (Auto) 0.8 L [place] # (Auto) Eos # (Auto) Baso # (Auto) Seg Neutrophils % 85.8 H Seg Neuts % (Manual) Lymphocytes % (Manual) Seg Neutrophils # Seg Neutrophils # Man Lymphocytes # (Manual) D-Dimer ABG pH POC ABG pCO2 POC ABG pO2 ABG pO2 ABG HCO3 ABG O2 Saturation ABG Base Excess ABG Oxyhemoglobin ABG Sodium ABG Chloride ABG Glucose Oxyhemoglobin Carboxyhemoglobin Sodium Potassium Chloride Carbon Dioxide BUN Creatinine Glucose POC Glucose 266 H 234 H Hemoglobin A1c Magnesium Ferritin AST ALT Alkaline Phosphatase Lactate Dehydrogenase C-Reactive Protein Total Protein Albumin Arterial Blood Glucose Coronavirus (PCR) 05/17/21 05/17/21 05/17/21 06:20 11:06 16:36 WBC MCV MCH MCHC RDW Lymph % (Auto) [place] % (Auto) Eos % (Auto) Lymph # (Auto) Foster # (Auto) Eos # (Auto) Baso # (Auto) Seg Neutrophils % Seg Neuts % (Manual) Lymphocytes % (Manual) Seg Neutrophils # Seg Neutrophils # Man Lymphocytes # (Manual) D-Dimer ABG pH POC ABG pCO2 POC ABG pO2 ABG pO2 ABG HCO3 ABG O2 Saturation ABG Base Excess ABG Oxyhemoglobin ABG Sodium ABG Chloride ABG Glucose Oxyhemoglobin Carboxyhemoglobin Sodium Potassium Chloride Carbon Dioxide 33 H BUN Creatinine 0.2 L Glucose 101 H POC Glucose 209 H 180 H Hemoglobin A1c Magnesium Ferritin AST ALT Alkaline Phosphatase Lactate Dehydrogenase C-Reactive Protein Total Protein Albumin Arterial Blood Glucose Coronavirus (PCR) 05/17/21 05/18/21 05/18/21 21:06 12:00 15:06 WBC MCV MCH MCHC RDW Lymph % (Auto) Foster % (Auto) Eos % (Auto) Lymph # (Auto) Foster # (Auto) Eos # (Auto) Baso # (Auto) Seg Neutrophils % Seg Neuts % (Manual) Lymphocytes % (Manual) Seg Neutrophils # Seg Neutrophils # Man Lymphocytes # (Manual) D-Dimer 874.02 H ABG pH POC ABG pCO2 POC ABG pO2 ABG pO2 ABG HCO3 ABG O2 Saturation ABG Base Excess ABG Oxyhemoglobin ABG Sodium ABG Chloride ABG Glucose Oxyhemoglobin Carboxyhemoglobin Sodium Potassium Chloride Carbon Dioxide BUN Creatinine Glucose POC Glucose 256 H 139 H Hemoglobin A1c Magnesium Ferritin AST ALT Alkaline Phosphatase Lactate Dehydrogenase C-Reactive Protein Total Protein Albumin Arterial Blood Glucose Coronavirus (PCR) 05/18/21 05/18/21 05/18/21 15:06 15:06 16:08 WBC MCV MCH MCHC RDW Lymph % (Auto) Foster % (Auto) Eos % (Auto) Lymph # (Auto) [place] # (Auto) Eos # (Auto) Baso # (Auto) Seg Neutrophils % Seg Neuts % (Manual) Lymphocytes % (Manual) Seg Neutrophils # Seg Neutrophils # Man Lymphocytes # (Manual) D-Dimer ABG pH POC ABG pCO2 POC ABG pO2 ABG pO2 ABG HCO3 ABG O2 Saturation ABG Base Excess ABG Oxyhemoglobin ABG Sodium ABG Chloride ABG Glucose Oxyhemoglobin Carboxyhemoglobin Sodium Potassium Chloride Carbon Dioxide BUN Creatinine Glucose POC Glucose 178 H Hemoglobin A1c Magnesium Ferritin 289.6 H AST ALT Alkaline Phosphatase Lactate Dehydrogenase 605 H C-Reactive Protein Total Protein Albumin Arterial Blood Glucose Coronavirus (PCR) 05/18/21 05/19/2121 21:22 11:57 15:26 WBC MCV MCH MCHC RDW Lymph % (Auto) [place] % (Auto) Eos % (Auto) Lymph # (Auto) Foster # (Auto) Eos # (Auto) Baso # (Auto) Seg Neutrophils % Seg Neuts % (Manual) Lymphocytes % (Manual) Seg Neutrophils # Seg Neutrophils # Man Lymphocytes # (Manual) D-Dimer ABG pH POC ABG pCO2 POC ABG pO2 ABG pO2 ABG HCO3 ABG O2 Saturation ABG Base Excess ABG Oxyhemoglobin ABG Sodium ABG Chloride ABG Glucose Oxyhemoglobin Carboxyhemoglobin Sodium Potassium Chloride Carbon Dioxide BUN Creatinine Glucose POC Glucose 241 H 201 H 209 H Hemoglobin A1c Magnesium Ferritin AST ALT Alkaline Phosphatase Lactate Dehydrogenase C-Reactive Protein Total Protein Albumin Arterial Blood Glucose Coronavirus (PCR) 05/19/21 05/20/21 05/20/21 20:59 07:38 08:01 WBC MCV MCH MCHC RDW 19.7 H Lymph % (Auto) 8.3 L [place] % (Auto) Eos % (Auto) Lymph # (Auto) 0.8 L [place] # (Auto) Eos # (Auto) Baso # (Auto) Seg Neutrophils % 88.6 H Seg Neuts % (Manual) Lymphocytes % (Manual) Seg Neutrophils # 8.4 H Seg Neutrophils # Man Lymphocytes # (Manual) D-Dimer ABG pH POC ABG pCO2 POC ABG pO2 ABG pO2 ABG HCO3 ABG O2 Saturation ABG Base Excess ABG Oxyhemoglobin ABG Sodium ABG Chloride ABG Glucose Oxyhemoglobin Carboxyhemoglobin Sodium Potassium Chloride Carbon Dioxide BUN Creatinine Glucose POC Glucose 226 H 130 H Hemoglobin A1c Magnesium Ferritin AST ALT Alkaline Phosphatase Lactate Dehydrogenase C-Reactive Protein Total Protein Albumin Arterial Blood Glucose Coronavirus (PCR) 05/20/21 05/20/21 05/20/21 08:01 11:00 16:43 WBC MCV MCH MCHC RDW Lymph % (Auto) [place] % (Auto) Eos % (Auto) Lymph # (Auto) [place] # (Auto) Eos # (Auto) Baso # (Auto) Seg Neutrophils % Seg Neuts % (Manual) Lymphocytes % (Manual) Seg Neutrophils # Seg Neutrophils # Man Lymphocytes # (Manual) D-Dimer ABG pH POC ABG pCO2 POC ABG pO2 ABG pO2 ABG HCO3 ABG O2 Saturation ABG Base Excess ABG Oxyhemoglobin ABG Sodium ABG Chloride ABG Glucose Oxyhemoglobin Carboxyhemoglobin Sodium Potassium Chloride Carbon Dioxide BUN 18 H Creatinine 0.2 L Glucose 132 H POC Glucose 237 H 240 H Hemoglobin A1c Magnesium Ferritin AST ALT Alkaline Phosphatase Lactate Dehydrogenase C-Reactive Protein Total Protein Albumin Arterial Blood Glucose Coronavirus (PCR) 05/20/21 05/21/21 05/21/21 21:21 07:35 11:32 WBC MCV MCH MCHC RDW Lymph % (Auto) [place] % (Auto) Eos % (Auto) Lymph # (Auto) Foster # (Auto) Eos # (Auto) Baso # (Auto) Seg Neutrophils % Seg Neuts % (Manual) Lymphocytes % (Manual) Seg Neutrophils # Seg Neutrophils # Man Lymphocytes # (Manual) D-Dimer ABG pH POC ABG pCO2 POC ABG pO2 ABG pO2 ABG HCO3 ABG O2 Saturation ABG Base Excess ABG Oxyhemoglobin ABG Sodium ABG Chloride ABG Glucose Oxyhemoglobin Carboxyhemoglobin Sodium Potassium Chloride Carbon Dioxide BUN Creatinine Glucose POC Glucose 241 H 162 H 171 H Hemoglobin A1c Magnesium Ferritin AST ALT Alkaline Phosphatase Lactate Dehydrogenase C-Reactive Protein Total Protein Albumin Arterial Blood Glucose Coronavirus (PCR) 05/21/21 05/21/21 05/22/21 16:22 20:43 05:14 WBC MCV MCH MCHC RDW Lymph % (Auto) [place] % (Auto) Eos % (Auto) Lymph # (Auto) [place] # (Auto) Eos # (Auto) Baso # (Auto) Seg Neutrophils % Seg Neuts % (Manual) Lymphocytes % (Manual) Seg Neutrophils # Seg Neutrophils # Man Lymphocytes # (Manual) D-Dimer ABG pH POC ABG pCO2 POC ABG pO2 ABG pO2 ABG HCO3 ABG O2 Saturation ABG Base Excess ABG Oxyhemoglobin ABG Sodium ABG Chloride ABG Glucose Oxyhemoglobin Carboxyhemoglobin Sodium Potassium Chloride Carbon Dioxide BUN Creatinine Glucose POC Glucose 244 H 299 H 140 H Hemoglobin A1c Magnesium Ferritin AST ALT Alkaline Phosphatase Lactate Dehydrogenase C-Reactive Protein Total Protein Albumin Arterial Blood Glucose Coronavirus (PCR) 05/22/21 05/22/21 05/22/21 08:45 11:54 16:15 WBC MCV MCH MCHC RDW Lymph % (Auto) [place] % (Auto) Eos % (Auto) Lymph # (Auto) Foster # (Auto) Eos # (Auto) Baso # (Auto) Seg Neutrophils % Seg Neuts % (Manual) Lymphocytes % (Manual) Seg Neutrophils # Seg Neutrophils # Man Lymphocytes # (Manual) D-Dimer ABG pH POC ABG pCO2 POC ABG pO2 ABG pO2 ABG HCO3 ABG O2 Saturation ABG Base Excess ABG Oxyhemoglobin ABG Sodium ABG Chloride ABG Glucose Oxyhemoglobin Carboxyhemoglobin Sodium Potassium Chloride Carbon Dioxide BUN Creatinine Glucose POC Glucose 133 H 265 H 221 H Hemoglobin A1c Magnesium Ferritin AST ALT Alkaline Phosphatase Lactate Dehydrogenase C-Reactive Protein Total Protein Albumin Arterial Blood Glucose Coronavirus (PCR) 05/22/21 05/23/21 05/23/21 21:43 08:20 09:50 WBC MCV MCH MCHC RDW Lymph % (Auto) [place] % (Auto) Eos % (Auto) Lymph # (Auto) Foster # (Auto) Eos # (Auto) Baso # (Auto) Seg Neutrophils % Seg Neuts % (Manual) Lymphocytes % (Manual) Seg Neutrophils # Seg Neutrophils # Man Lymphocytes # (Manual) D-Dimer 910.38 H ABG pH POC ABG pCO2 POC ABG pO2 ABG pO2 ABG HCO3 ABG O2 Saturation ABG Base Excess ABG Oxyhemoglobin ABG Sodium ABG Chloride ABG Glucose Oxyhemoglobin Carboxyhemoglobin Sodium Potassium Chloride Carbon Dioxide BUN Creatinine Glucose POC Glucose 262 H 140 H Hemoglobin A1c Magnesium Ferritin AST ALT Alkaline Phosphatase Lactate Dehydrogenase C-Reactive Protein Total Protein Albumin Arterial Blood Glucose Coronavirus (PCR) 05/23/21 05/23/21 05/23/21 09:50 09:50 10:52 WBC MCV MCH MCHC RDW Lymph % (Auto) [place] % (Auto) Eos % (Auto) Lymph # (Auto) Foster # (Auto) Eos # (Auto) Baso # (Auto) Seg Neutrophils % Seg Neuts % (Manual) Lymphocytes % (Manual) Seg Neutrophils # Seg Neutrophils # Man Lymphocytes # (Manual) D-Dimer ABG pH POC ABG pCO2 POC ABG pO2 ABG pO2 ABG HCO3 ABG O2 Saturation ABG Base Excess ABG Oxyhemoglobin ABG Sodium ABG Chloride ABG Glucose Oxyhemoglobin Carboxyhemoglobin Sodium Potassium Chloride Carbon Dioxide BUN Creatinine Glucose POC Glucose 241 H Hemoglobin A1c Magnesium Ferritin 244.9 H AST ALT Alkaline Phosphatase Lactate Dehydrogenase 584 H C-Reactive Protein Total Protein Albumin Arterial Blood Glucose Coronavirus (PCR) 05/23/21 05/23/21 05/24/21 17:24 21:52 07:44 WBC MCV MCH MCHC RDW Lymph % (Auto) [place] % (Auto) Eos % (Auto) Lymph # (Auto) Foster # (Auto) Eos # (Auto) Baso # (Auto) Seg Neutrophils % Seg Neuts % (Manual) Lymphocytes % (Manual) Seg Neutrophils # Seg Neutrophils # Man Lymphocytes # (Manual) D-Dimer ABG pH POC ABG pCO2 POC ABG pO2 ABG pO2 ABG HCO3 ABG O2 Saturation ABG Base Excess ABG Oxyhemoglobin ABG Sodium ABG Chloride ABG Glucose Oxyhemoglobin Carboxyhemoglobin Sodium Potassium Chloride Carbon Dioxide BUN Creatinine Glucose POC Glucose 197 H 289 H 161 H Hemoglobin A1c Magnesium Ferritin AST ALT Alkaline Phosphatase Lactate Dehydrogenase C-Reactive Protein Total Protein Albumin Arterial Blood Glucose Coronavirus (PCR) 05/24/21 05/24/21 05/24/21 11:17 17:51 21:26 WBC MCV MCH MCHC RDW Lymph % (Auto) [place] % (Auto) Eos % (Auto) Lymph # (Auto) [place] # (Auto) Eos # (Auto) Baso # (Auto) Seg Neutrophils % Seg Neuts % (Manual) Lymphocytes % (Manual) Seg Neutrophils # Seg Neutrophils # Man Lymphocytes # (Manual) D-Dimer ABG pH POC ABG pCO2 POC ABG pO2 ABG pO2 ABG HCO3 ABG O2 Saturation ABG Base Excess ABG Oxyhemoglobin ABG Sodium ABG Chloride ABG Glucose Oxyhemoglobin Carboxyhemoglobin Sodium Potassium Chloride Carbon Dioxide BUN Creatinine Glucose POC Glucose 308 H 175 H 198 H Hemoglobin A1c Magnesium Ferritin AST ALT Alkaline Phosphatase Lactate Dehydrogenase C-Reactive Protein Total Protein Albumin Arterial Blood Glucose Coronavirus (PCR) 05/25/21 05/25/21 05/25/21 08:14 11:13 17:13 WBC MCV MCH MCHC RDW Lymph % (Auto) [place] % (Auto) Eos % (Auto) Lymph # (Auto) Foster # (Auto) Eos # (Auto) Baso # (Auto) Seg Neutrophils % Seg Neuts % (Manual) Lymphocytes % (Manual) Seg Neutrophils # Seg Neutrophils # Man Lymphocytes # (Manual) D-Dimer ABG pH POC ABG pCO2 POC ABG pO2 ABG pO2 ABG HCO3 ABG O2 Saturation ABG Base Excess ABG Oxyhemoglobin ABG Sodium ABG Chloride ABG Glucose Oxyhemoglobin Carboxyhemoglobin Sodium Potassium Chloride Carbon Dioxide BUN Creatinine Glucose POC Glucose 203 H 339 H 235 H Hemoglobin A1c Magnesium Ferritin AST ALT Alkaline Phosphatase Lactate Dehydrogenase C-Reactive Protein Total Protein Albumin Arterial Blood Glucose Coronavirus (PCR) 05/25/21 05/26/21 05/26/21 21:03 07:33 11:19 WBC MCV MCH MCHC RDW Lymph % (Auto) [place] % (Auto) Eos % (Auto) Lymph # (Auto) [place] # (Auto) Eos # (Auto) Baso # (Auto) Seg Neutrophils % Seg Neuts % (Manual) Lymphocytes % (Manual) Seg Neutrophils # Seg Neutrophils # Man Lymphocytes # (Manual) D-Dimer ABG pH POC ABG pCO2 POC ABG pO2 ABG pO2 ABG HCO3 ABG O2 Saturation ABG Base Excess ABG Oxyhemoglobin ABG Sodium ABG Chloride ABG Glucose Oxyhemoglobin Carboxyhemoglobin Sodium Potassium Chloride Carbon Dioxide BUN Creatinine Glucose POC Glucose 263 H 156 H 288 H Hemoglobin A1c Magnesium Ferritin AST ALT Alkaline Phosphatase Lactate Dehydrogenase C-Reactive Protein Total Protein Albumin Arterial Blood Glucose Coronavirus (PCR) 05/26/21 05/26/21 05/27/21 16:26 20:55 07:38 WBC MCV MCH MCHC RDW Lymph % (Auto) [place] % (Auto) Eos % (Auto) Lymph # (Auto) Foster # (Auto) Eos # (Auto) Baso # (Auto) Seg Neutrophils % Seg Neuts % (Manual) Lymphocytes % (Manual) Seg Neutrophils # Seg Neutrophils # Man Lymphocytes # (Manual) D-Dimer ABG pH POC ABG pCO2 POC ABG pO2 ABG pO2 ABG HCO3 ABG O2 Saturation ABG Base Excess ABG Oxyhemoglobin ABG Sodium ABG Chloride ABG Glucose Oxyhemoglobin Carboxyhemoglobin Sodium Potassium Chloride Carbon Dioxide BUN Creatinine Glucose POC Glucose 286 H 293 H 115 H Hemoglobin A1c Magnesium Ferritin AST ALT Alkaline Phosphatase Lactate Dehydrogenase C-Reactive Protein Total Protein Albumin Arterial Blood Glucose Coronavirus (PCR) 05/27/21 05/27/21 05/27/21 11:46 15:58 21:02 WBC MCV MCH MCHC RDW Lymph % (Auto) [place] % (Auto) Eos % (Auto) Lymph # (Auto) Foster # (Auto) Eos # (Auto) Baso # (Auto) Seg Neutrophils % Seg Neuts % (Manual) Lymphocytes % (Manual) Seg Neutrophils # Seg Neutrophils # Man Lymphocytes # (Manual) D-Dimer ABG pH POC ABG pCO2 POC ABG pO2 ABG pO2 ABG HCO3 ABG O2 Saturation ABG Base Excess ABG Oxyhemoglobin ABG Sodium ABG Chloride ABG Glucose Oxyhemoglobin Carboxyhemoglobin Sodium Potassium Chloride Carbon Dioxide BUN Creatinine Glucose POC Glucose 260 H 318 H 246 H Hemoglobin A1c Magnesium Ferritin AST ALT Alkaline Phosphatase Lactate Dehydrogenase C-Reactive Protein Total Protein Albumin Arterial Blood Glucose Coronavirus (PCR) 05/28/21 05/28/21 05/28/21 07:34 11:31 16:36 WBC MCV MCH MCHC RDW Lymph % (Auto) [place] % (Auto) Eos % (Auto) Lymph # (Auto) [place] # (Auto) Eos # (Auto) Baso # (Auto) Seg Neutrophils % Seg Neuts % (Manual) Lymphocytes % (Manual) Seg Neutrophils # Seg Neutrophils # Man Lymphocytes # (Manual) D-Dimer ABG pH POC ABG pCO2 POC ABG pO2 ABG pO2 ABG HCO3 ABG O2 Saturation ABG Base Excess ABG Oxyhemoglobin ABG Sodium ABG Chloride ABG Glucose Oxyhemoglobin Carboxyhemoglobin Sodium Potassium Chloride Carbon Dioxide BUN Creatinine Glucose POC Glucose 185 H 297 H 183 H Hemoglobin A1c Magnesium Ferritin AST ALT Alkaline Phosphatase Lactate Dehydrogenase C-Reactive Protein Total Protein Albumin Arterial Blood Glucose Coronavirus (PCR) 05/28/21 05/29/21 05/29/21 21:19 07:34 11:19 WBC MCV MCH MCHC RDW Lymph % (Auto) [place] % (Auto) Eos % (Auto) Lymph # (Auto) [place] # (Auto) Eos # (Auto) Baso # (Auto) Seg Neutrophils % Seg Neuts % (Manual) Lymphocytes % (Manual) Seg Neutrophils # Seg Neutrophils # Man Lymphocytes # (Manual) D-Dimer ABG pH POC ABG pCO2 POC ABG pO2 ABG pO2 ABG HCO3 ABG O2 Saturation ABG Base Excess ABG Oxyhemoglobin ABG Sodium ABG Chloride ABG Glucose Oxyhemoglobin Carboxyhemoglobin Sodium Potassium Chloride Carbon Dioxide BUN Creatinine Glucose POC Glucose 274 H 139 H 293 H Hemoglobin A1c Magnesium Ferritin AST ALT Alkaline Phosphatase Lactate Dehydrogenase C-Reactive Protein Total Protein Albumin Arterial Blood Glucose Coronavirus (PCR) 05/29/21 05/29/21 05/30/21 16:36 22:44 05:55 WBC MCV MCH MCHC RDW 21.3 H Lymph % (Auto) 8.0 L [place] % (Auto) Eos % (Auto) Lymph # (Auto) 0.6 L [place] # (Auto) Eos # (Auto) Baso # (Auto) Seg Neutrophils % 88.6 H Seg Neuts % (Manual) Lymphocytes % (Manual) Seg Neutrophils # Seg Neutrophils # Man Lymphocytes # (Manual) D-Dimer ABG pH POC ABG pCO2 POC ABG pO2 ABG pO2 ABG HCO3 ABG O2 Saturation ABG Base Excess ABG Oxyhemoglobin ABG Sodium ABG Chloride ABG Glucose Oxyhemoglobin Carboxyhemoglobin Sodium Potassium Chloride Carbon Dioxide BUN Creatinine Glucose POC Glucose 299 H 160 H Hemoglobin A1c Magnesium Ferritin AST ALT Alkaline Phosphatase Lactate Dehydrogenase C-Reactive Protein Total Protein Albumin Arterial Blood Glucose Coronavirus (PCR) 05/30/21 05/30/21 05/30/21 05:55 08:04 11:13 WBC MCV MCH MCHC RDW Lymph % (Auto) [place] % (Auto) Eos % (Auto) Lymph # (Auto) [place] # (Auto) Eos # (Auto) Baso # (Auto) Seg Neutrophils % Seg Neuts % (Manual) Lymphocytes % (Manual) Seg Neutrophils # Seg Neutrophils # Man Lymphocytes # (Manual) D-Dimer ABG pH POC ABG pCO2 POC ABG pO2 ABG pO2 ABG HCO3 ABG O2 Saturation ABG Base Excess ABG Oxyhemoglobin ABG Sodium ABG Chloride ABG Glucose Oxyhemoglobin Carboxyhemoglobin Sodium Potassium Chloride Carbon Dioxide BUN 19 H Creatinine 0.2 L Glucose 209 H POC Glucose 157 H 275 H Hemoglobin A1c Magnesium Ferritin AST ALT Alkaline Phosphatase Lactate Dehydrogenase C-Reactive Protein Total Protein Albumin Arterial Blood Glucose Coronavirus (PCR) 05/30/21 05/30/21 05/31/21 17:08 22:12 07:36 WBC MCV MCH MCHC RDW Lymph % (Auto) Foster % (Auto) Eos % (Auto) Lymph # (Auto) Foster # (Auto) Eos # (Auto) Baso # (Auto) Seg Neutrophils % Seg Neuts % (Manual) Lymphocytes % (Manual) Seg Neutrophils # Seg Neutrophils # Man Lymphocytes # (Manual) D-Dimer ABG pH POC ABG pCO2 POC ABG pO2 ABG pO2 ABG HCO3 ABG O2 Saturation ABG Base Excess ABG Oxyhemoglobin ABG Sodium ABG Chloride ABG Glucose Oxyhemoglobin Carboxyhemoglobin Sodium Potassium Chloride Carbon Dioxide BUN Creatinine Glucose POC Glucose 154 H 275 H 138 H Hemoglobin A1c Magnesium Ferritin AST ALT Alkaline Phosphatase Lactate Dehydrogenase C-Reactive Protein Total Protein Albumin Arterial Blood Glucose Coronavirus (PCR) 05/31/21 05/31/21 05/31/21 11:17 16:55 21:25 WBC MCV MCH MCHC RDW Lymph % (Auto) Foster % (Auto) Eos % (Auto) Lymph # (Auto) Foster # (Auto) Eos # (Auto) Baso # (Auto) Seg Neutrophils % Seg Neuts % (Manual) Lymphocytes % (Manual) Seg Neutrophils # Seg Neutrophils # Man Lymphocytes # (Manual) D-Dimer ABG pH POC ABG pCO2 POC ABG pO2 ABG pO2 ABG HCO3 ABG O2 Saturation ABG Base Excess ABG Oxyhemoglobin ABG Sodium ABG Chloride ABG Glucose Oxyhemoglobin Carboxyhemoglobin Sodium Potassium Chloride Carbon Dioxide BUN Creatinine Glucose POC Glucose 258 H 215 H 318 H Hemoglobin A1c Magnesium Ferritin AST ALT Alkaline Phosphatase Lactate Dehydrogenase C-Reactive Protein Total Protein Albumin Arterial Blood Glucose Coronavirus (PCR) 06/01/21 06/01/21 06/01/21 07:23 11:38 16:52 WBC MCV MCH MCHC RDW Lymph % (Auto) Foster % (Auto) Eos % (Auto) Lymph # (Auto) Foster # (Auto) Eos # (Auto) Baso # (Auto) Seg Neutrophils % Seg Neuts % (Manual) Lymphocytes % (Manual) Seg Neutrophils # Seg Neutrophils # Man Lymphocytes # (Manual) D-Dimer ABG pH POC ABG pCO2 POC ABG pO2 ABG pO2 ABG HCO3 ABG O2 Saturation ABG Base Excess ABG Oxyhemoglobin ABG Sodium ABG Chloride ABG Glucose Oxyhemoglobin Carboxyhemoglobin Sodium Potassium Chloride Carbon Dioxide BUN Creatinine Glucose POC Glucose 157 H 259 H 150 H Hemoglobin A1c Magnesium Ferritin AST ALT Alkaline Phosphatase Lactate Dehydrogenase C-Reactive Protein Total Protein Albumin Arterial Blood Glucose Coronavirus (PCR) 06/01/21 06/02/21 06/02/21 23:16 05:34 05:34 WBC MCV MCH MCHC RDW 21.3 H Lymph % (Auto) 9.6 L Foster % (Auto) Eos % (Auto) Lymph # (Auto) 0.6 L Foster # (Auto) Eos # (Auto) Baso # (Auto) Seg Neutrophils % 86.2 H Seg Neuts % (Manual) Lymphocytes % (Manual) Seg Neutrophils # Seg Neutrophils # Man Lymphocytes # (Manual) D-Dimer ABG pH POC ABG pCO2 POC ABG pO2 ABG pO2 ABG HCO3 ABG O2 Saturation ABG Base Excess ABG Oxyhemoglobin ABG Sodium ABG Chloride ABG Glucose Oxyhemoglobin Carboxyhemoglobin Sodium 136 L Potassium Chloride Carbon Dioxide BUN Creatinine 0.2 L Glucose 186 H POC Glucose 247 H Hemoglobin A1c Magnesium Ferritin AST ALT 69 H Alkaline Phosphatase Lactate Dehydrogenase C-Reactive Protein Total Protein 6.1 L Albumin 3.2 L Arterial Blood Glucose Coronavirus (PCR) 06/02/21 06/02/21 06/02/21 11:25 18:23 21:32 WBC MCV MCH MCHC RDW Lymph % (Auto) Foster % (Auto) Eos % (Auto) Lymph # (Auto) Foster # (Auto) Eos # (Auto) Baso # (Auto) Seg Neutrophils % Seg Neuts % (Manual) Lymphocytes % (Manual) Seg Neutrophils # Seg Neutrophils # Man Lymphocytes # (Manual) D-Dimer ABG pH POC ABG pCO2 POC ABG pO2 ABG pO2 ABG HCO3 ABG O2 Saturation ABG Base Excess ABG Oxyhemoglobin ABG Sodium ABG Chloride ABG Glucose Oxyhemoglobin Carboxyhemoglobin Sodium Potassium Chloride Carbon Dioxide BUN Creatinine Glucose POC Glucose 157 H 299 H 246 H Hemoglobin A1c Magnesium Ferritin AST ALT Alkaline Phosphatase Lactate Dehydrogenase C-Reactive Protein Total Protein Albumin Arterial Blood Glucose Coronavirus (PCR) 06/03/21 06/03/21 06/03/21 08:12 12:21 17:31 WBC MCV MCH MCHC RDW Lymph % (Auto) Foster % (Auto) Eos % (Auto) Lymph # (Auto) Foster # (Auto) Eos # (Auto) Baso # (Auto) Seg Neutrophils % Seg Neuts % (Manual) Lymphocytes % (Manual) Seg Neutrophils # Seg Neutrophils # Man Lymphocytes # (Manual) D-Dimer ABG pH POC ABG pCO2 POC ABG pO2 ABG pO2 ABG HCO3 ABG O2 Saturation ABG Base Excess ABG Oxyhemoglobin ABG Sodium ABG Chloride ABG Glucose Oxyhemoglobin Carboxyhemoglobin Sodium Potassium Chloride Carbon Dioxide BUN Creatinine Glucose POC Glucose 153 H 302 H 252 H Hemoglobin A1c Magnesium Ferritin AST ALT Alkaline Phosphatase Lactate Dehydrogenase C-Reactive Protein Total Protein Albumin Arterial Blood Glucose Coronavirus (PCR) 06/03/21 06/04/21 06/04/21 22:08 11:12 16:01 WBC MCV MCH MCHC RDW Lymph % (Auto) Foster % (Auto) Eos % (Auto) Lymph # (Auto) Foster # (Auto) Eos # (Auto) Baso # (Auto) Seg Neutrophils % Seg Neuts % (Manual) Lymphocytes % (Manual) Seg Neutrophils # Seg Neutrophils # Man Lymphocytes # (Manual) D-Dimer ABG pH POC ABG pCO2 POC ABG pO2 ABG pO2 ABG HCO3 ABG O2 Saturation ABG Base Excess ABG Oxyhemoglobin ABG Sodium ABG Chloride ABG Glucose Oxyhemoglobin Carboxyhemoglobin Sodium Potassium Chloride Carbon Dioxide BUN Creatinine Glucose POC Glucose 224 H 259 H 238 H Hemoglobin A1c Magnesium Ferritin AST ALT Alkaline Phosphatase Lactate Dehydrogenase C-Reactive Protein Total Protein Albumin Arterial Blood Glucose Coronavirus (PCR) 06/04/21 06/05/21 06/05/21 21:26 05:26 05:26 WBC MCV MCH MCHC RDW Lymph % (Auto) Foster % (Auto) Eos % (Auto) Lymph # (Auto) Foster # (Auto) Eos # (Auto) Baso # (Auto) Seg Neutrophils % Seg Neuts % (Manual) Lymphocytes % (Manual) Seg Neutrophils # Seg Neutrophils # Man Lymphocytes # (Manual) D-Dimer 488.49 H ABG pH POC ABG pCO2 POC ABG pO2 ABG pO2 ABG HCO3 ABG O2 Saturation ABG Base Excess ABG Oxyhemoglobin ABG Sodium ABG Chloride ABG Glucose Oxyhemoglobin Carboxyhemoglobin Sodium Potassium Chloride Carbon Dioxide BUN Creatinine 0.2 L Glucose 198 H POC Glucose 257 H Hemoglobin A1c Magnesium Ferritin AST ALT Alkaline Phosphatase Lactate Dehydrogenase 475 H C-Reactive Protein Total Protein Albumin Arterial Blood Glucose Coronavirus (PCR) 06/05/21 06/05/21 06/05/21 07:20 08:30 11:00 WBC MCV MCH MCHC RDW Lymph % (Auto) Foster % (Auto) Eos % (Auto) Lymph # (Auto) Foster # (Auto) Eos # (Auto) Baso # (Auto) Seg Neutrophils % Seg Neuts % (Manual) Lymphocytes % (Manual) Seg Neutrophils # Seg Neutrophils # Man Lymphocytes # (Manual) D-Dimer ABG pH POC ABG pCO2 POC ABG pO2 ABG pO2 ABG HCO3 ABG O2 Saturation ABG Base Excess ABG Oxyhemoglobin ABG Sodium ABG Chloride ABG Glucose Oxyhemoglobin Carboxyhemoglobin Sodium Potassium Chloride Carbon Dioxide BUN Creatinine Glucose POC Glucose 146 H 246 H Hemoglobin A1c Magnesium Ferritin AST ALT Alkaline Phosphatase Lactate Dehydrogenase C-Reactive Protein Total Protein Albumin Arterial Blood Glucose Coronavirus (PCR) Positive A 06/05/21 06/05/21 06/06/21 16:50 22:30 07:57 WBC MCV MCH MCHC RDW Lymph % (Auto) Foster % (Auto) Eos % (Auto) Lymph # (Auto) Foster # (Auto) Eos # (Auto) Baso # (Auto) Seg Neutrophils % Seg Neuts % (Manual) Lymphocytes % (Manual) Seg Neutrophils # Seg Neutrophils # Man Lymphocytes # (Manual) D-Dimer ABG pH POC ABG pCO2 POC ABG pO2 ABG pO2 ABG HCO3 ABG O2 Saturation ABG Base Excess ABG Oxyhemoglobin ABG Sodium ABG Chloride ABG Glucose Oxyhemoglobin Carboxyhemoglobin Sodium Potassium Chloride Carbon Dioxide BUN Creatinine Glucose POC Glucose 240 H 174 H 120 H Hemoglobin A1c Magnesium Ferritin AST ALT Alkaline Phosphatase Lactate Dehydrogenase C-Reactive Protein Total Protein Albumin Arterial Blood Glucose Coronavirus (PCR) 06/06/21 06/06/21 06/06/21 11:14 16:50 21:11 WBC MCV MCH MCHC RDW Lymph % (Auto) Foster % (Auto) Eos % (Auto) Lymph # (Auto) Foster # (Auto) Eos # (Auto) Baso # (Auto) Seg Neutrophils % Seg Neuts % (Manual) Lymphocytes % (Manual) Seg Neutrophils # Seg Neutrophils # Man Lymphocytes # (Manual) D-Dimer ABG pH POC ABG pCO2 POC ABG pO2 ABG pO2 ABG HCO3 ABG O2 Saturation ABG Base Excess ABG Oxyhemoglobin ABG Sodium ABG Chloride ABG Glucose Oxyhemoglobin Carboxyhemoglobin Sodium Potassium Chloride Carbon Dioxide BUN Creatinine Glucose POC Glucose 267 H 218 H 124 H Hemoglobin A1c Magnesium Ferritin AST ALT Alkaline Phosphatase Lactate Dehydrogenase C-Reactive Protein Total Protein Albumin Arterial Blood Glucose Coronavirus (PCR) 06/07/21 06/07/21 06/08/21 11:58 15:59 07:59 WBC MCV MCH MCHC RDW Lymph % (Auto) Foster % (Auto) Eos % (Auto) Lymph # (Auto) Foster # (Auto) Eos # (Auto) Baso # (Auto) Seg Neutrophils % Seg Neuts % (Manual) Lymphocytes % (Manual) Seg Neutrophils # Seg Neutrophils # Man Lymphocytes # (Manual) D-Dimer ABG pH POC ABG pCO2 POC ABG pO2 ABG pO2 ABG HCO3 ABG O2 Saturation ABG Base Excess ABG Oxyhemoglobin ABG Sodium ABG Chloride ABG Glucose Oxyhemoglobin Carboxyhemoglobin Sodium Potassium Chloride Carbon Dioxide BUN Creatinine Glucose POC Glucose 219 H 208 H 192 H Hemoglobin A1c Magnesium Ferritin AST ALT Alkaline Phosphatase Lactate Dehydrogenase C-Reactive Protein Total Protein Albumin Arterial Blood Glucose Coronavirus (PCR) 06/08/21 06/08/21 06/09/21 11:26 23:28 07:33 WBC MCV MCH MCHC RDW Lymph % (Auto) Foster % (Auto) Eos % (Auto) Lymph # (Auto) Foster # (Auto) Eos # (Auto) Baso # (Auto) Seg Neutrophils % Seg Neuts % (Manual) Lymphocytes % (Manual) Seg Neutrophils # Seg Neutrophils # Man Lymphocytes # (Manual) D-Dimer ABG pH POC ABG pCO2 POC ABG pO2 ABG pO2 ABG HCO3 ABG O2 Saturation ABG Base Excess ABG Oxyhemoglobin ABG Sodium ABG Chloride ABG Glucose Oxyhemoglobin Carboxyhemoglobin Sodium Potassium Chloride Carbon Dioxide BUN Creatinine Glucose POC Glucose 307 H 138 H 145 H Hemoglobin A1c Magnesium Ferritin AST ALT Alkaline Phosphatase Lactate Dehydrogenase C-Reactive Protein Total Protein Albumin Arterial Blood Glucose Coronavirus (PCR) 06/09/21 06/09/21 06/09/21 11:01 15:47 21:43 WBC MCV MCH MCHC RDW Lymph % (Auto) Foster % (Auto) Eos % (Auto) Lymph # (Auto) Foster # (Auto) Eos # (Auto) Baso # (Auto) Seg Neutrophils % Seg Neuts % (Manual) Lymphocytes % (Manual) Seg Neutrophils # Seg Neutrophils # Man Lymphocytes # (Manual) D-Dimer ABG pH POC ABG pCO2 POC ABG pO2 ABG pO2 ABG HCO3 ABG O2 Saturation ABG Base Excess ABG Oxyhemoglobin ABG Sodium ABG Chloride ABG Glucose Oxyhemoglobin Carboxyhemoglobin Sodium Potassium Chloride Carbon Dioxide BUN Creatinine Glucose POC Glucose 266 H 305 H 223 H Hemoglobin A1c Magnesium Ferritin AST ALT Alkaline Phosphatase Lactate Dehydrogenase C-Reactive Protein Total Protein Albumin Arterial Blood Glucose Coronavirus (PCR) 06/10/21 06/10/21 06/10/21 08:27 12:10 17:45 WBC MCV MCH MCHC RDW Lymph % (Auto) Foster % (Auto) Eos % (Auto) Lymph # (Auto) Foster # (Auto) Eos # (Auto) Baso # (Auto) Seg Neutrophils % Seg Neuts % (Manual) Lymphocytes % (Manual) Seg Neutrophils # Seg Neutrophils # Man Lymphocytes # (Manual) D-Dimer ABG pH POC ABG pCO2 POC ABG pO2 ABG pO2 ABG HCO3 ABG O2 Saturation ABG Base Excess ABG Oxyhemoglobin ABG Sodium ABG Chloride ABG Glucose Oxyhemoglobin Carboxyhemoglobin Sodium Potassium Chloride Carbon Dioxide BUN Creatinine Glucose POC Glucose 174 H 306 H 210 H Hemoglobin A1c Magnesium Ferritin AST ALT Alkaline Phosphatase Lactate Dehydrogenase C-Reactive Protein Total Protein Albumin Arterial Blood Glucose Coronavirus (PCR) 06/10/21 06/11/21 06/11/21 21:45 09:38 09:38 WBC MCV MCH MCHC RDW 20.9 H Lymph % (Auto) Foster % (Auto) Eos % (Auto) Lymph # (Auto) Foster # (Auto) Eos # (Auto) Baso # (Auto) Seg Neutrophils % Seg Neuts % (Manual) Lymphocytes % (Manual) Seg Neutrophils # Seg Neutrophils # Man Lymphocytes # (Manual) D-Dimer ABG pH POC ABG pCO2 POC ABG pO2 ABG pO2 ABG HCO3 ABG O2 Saturation ABG Base Excess ABG Oxyhemoglobin ABG Sodium ABG Chloride ABG Glucose Oxyhemoglobin Carboxyhemoglobin Sodium 135 L Potassium Chloride 90.8 L Carbon Dioxide 36 H BUN 29 H Creatinine 0.2 L Glucose 258 H POC Glucose 262 H Hemoglobin A1c Magnesium Ferritin AST ALT Alkaline Phosphatase Lactate Dehydrogenase C-Reactive Protein Total Protein Albumin Arterial Blood Glucose Coronavirus (PCR) 06/11/21 06/11/21 06/11/21 11:20 15:49 22:57 WBC MCV MCH MCHC RDW Lymph % (Auto) Foster % (Auto) Eos % (Auto) Lymph # (Auto) Foster # (Auto) Eos # (Auto) Baso # (Auto) Seg Neutrophils % Seg Neuts % (Manual) Lymphocytes % (Manual) Seg Neutrophils # Seg Neutrophils # Man Lymphocytes # (Manual) D-Dimer ABG pH POC ABG pCO2 POC ABG pO2 ABG pO2 ABG HCO3 ABG O2 Saturation ABG Base Excess ABG Oxyhemoglobin ABG Sodium ABG Chloride ABG Glucose Oxyhemoglobin Carboxyhemoglobin Sodium Potassium Chloride Carbon Dioxide BUN Creatinine Glucose POC Glucose 269 H 206 H 211 H Hemoglobin A1c Magnesium Ferritin AST ALT Alkaline Phosphatase Lactate Dehydrogenase C-Reactive Protein Total Protein Albumin Arterial Blood Glucose Coronavirus (PCR) 06/12/21 06/12/21 06/12/21 08:07 11:24 18:08 WBC MCV MCH MCHC RDW Lymph % (Auto) Foster % (Auto) Eos % (Auto) Lymph # (Auto) Foster # (Auto) Eos # (Auto) Baso # (Auto) Seg Neutrophils % Seg Neuts % (Manual) Lymphocytes % (Manual) Seg Neutrophils # Seg Neutrophils # Man Lymphocytes # (Manual) D-Dimer ABG pH POC ABG pCO2 POC ABG pO2 ABG pO2 ABG HCO3 ABG O2 Saturation ABG Base Excess ABG Oxyhemoglobin ABG Sodium ABG Chloride ABG Glucose Oxyhemoglobin Carboxyhemoglobin Sodium Potassium Chloride Carbon Dioxide BUN Creatinine Glucose POC Glucose 149 H 270 H 166 H Hemoglobin A1c Magnesium Ferritin AST ALT Alkaline Phosphatase Lactate Dehydrogenase C-Reactive Protein Total Protein Albumin Arterial Blood Glucose Coronavirus (PCR) 06/12/21 06/13/21 06/13/21 20:22 07:50 11:18 WBC MCV MCH MCHC RDW Lymph % (Auto) Foster % (Auto) Eos % (Auto) Lymph # (Auto) Foster # (Auto) Eos # (Auto) Baso # (Auto) Seg Neutrophils % Seg Neuts % (Manual) Lymphocytes % (Manual) Seg Neutrophils # Seg Neutrophils # Man Lymphocytes # (Manual) D-Dimer ABG pH POC ABG pCO2 POC ABG pO2 ABG pO2 ABG HCO3 ABG O2 Saturation ABG Base Excess ABG Oxyhemoglobin ABG Sodium ABG Chloride ABG Glucose Oxyhemoglobin Carboxyhemoglobin Sodium Potassium Chloride Carbon Dioxide BUN Creatinine Glucose POC Glucose 155 H 163 H 293 H Hemoglobin A1c Magnesium Ferritin AST ALT Alkaline Phosphatase Lactate Dehydrogenase C-Reactive Protein Total Protein Albumin Arterial Blood Glucose Coronavirus (PCR) 06/13/21 06/13/21 06/14/21 16:41 21:00 07:41 WBC MCV MCH MCHC RDW Lymph % (Auto) Foster % (Auto) Eos % (Auto) Lymph # (Auto) Foster # (Auto) Eos # (Auto) Baso # (Auto) Seg Neutrophils % Seg Neuts % (Manual) Lymphocytes % (Manual) Seg Neutrophils # Seg Neutrophils # Man Lymphocytes # (Manual) D-Dimer ABG pH POC ABG pCO2 POC ABG pO2 ABG pO2 ABG HCO3 ABG O2 Saturation ABG Base Excess ABG Oxyhemoglobin ABG Sodium ABG Chloride ABG Glucose Oxyhemoglobin Carboxyhemoglobin Sodium Potassium Chloride Carbon Dioxide BUN Creatinine Glucose POC Glucose 232 H 183 H 52 L Hemoglobin A1c Magnesium Ferritin AST ALT Alkaline Phosphatase Lactate Dehydrogenase C-Reactive Protein Total Protein Albumin Arterial Blood Glucose Coronavirus (PCR) 06/14/21 06/14/21 06/14/21 11:44 17:44 21:44 WBC MCV MCH MCHC RDW Lymph % (Auto) Foster % (Auto) Eos % (Auto) Lymph # (Auto) Foster # (Auto) Eos # (Auto) Baso # (Auto) Seg Neutrophils % Seg Neuts % (Manual) Lymphocytes % (Manual) Seg Neutrophils # Seg Neutrophils # Man Lymphocytes # (Manual) D-Dimer ABG pH POC ABG pCO2 POC ABG pO2 ABG pO2 ABG HCO3 ABG O2 Saturation ABG Base Excess ABG Oxyhemoglobin ABG Sodium ABG Chloride ABG Glucose Oxyhemoglobin Carboxyhemoglobin Sodium Potassium Chloride Carbon Dioxide BUN Creatinine Glucose POC Glucose 205 H 293 H 288 H Hemoglobin A1c Magnesium Ferritin AST ALT Alkaline Phosphatase Lactate Dehydrogenase C-Reactive Protein Total Protein Albumin Arterial Blood Glucose Coronavirus (PCR) 06/15/21 06/15/21 06/15/21 08:00 08:00 11:40 WBC MCV MCH 33 H MCHC 35 H RDW 20.3 H Lymph % (Auto) Foster % (Auto) Eos % (Auto) Lymph # (Auto) Foster # (Auto) Eos # (Auto) Baso # (Auto) Seg Neutrophils % Seg Neuts % (Manual) Lymphocytes % (Manual) Seg Neutrophils # Seg Neutrophils # Man Lymphocytes # (Manual) D-Dimer ABG pH POC ABG pCO2 POC ABG pO2 ABG pO2 ABG HCO3 ABG O2 Saturation ABG Base Excess ABG Oxyhemoglobin ABG Sodium ABG Chloride ABG Glucose Oxyhemoglobin Carboxyhemoglobin Sodium Potassium 3.2 L Chloride 95.3 L Carbon Dioxide 32 H BUN 23 H Creatinine 0.2 L Glucose 103 H POC Glucose 204 H Hemoglobin A1c Magnesium Ferritin AST ALT Alkaline Phosphatase Lactate Dehydrogenase C-Reactive Protein Total Protein Albumin Arterial Blood Glucose Coronavirus (PCR) 06/15/21 06/15/21 06/16/21 16:17 22:00 11:43 WBC MCV MCH MCHC RDW Lymph % (Auto) Foster % (Auto) Eos % (Auto) Lymph # (Auto) Foster # (Auto) Eos # (Auto) Baso # (Auto) Seg Neutrophils % Seg Neuts % (Manual) Lymphocytes % (Manual) Seg Neutrophils # Seg Neutrophils # Man Lymphocytes # (Manual) D-Dimer ABG pH POC ABG pCO2 POC ABG pO2 ABG pO2 ABG HCO3 ABG O2 Saturation ABG Base Excess ABG Oxyhemoglobin ABG Sodium ABG Chloride ABG Glucose Oxyhemoglobin Carboxyhemoglobin Sodium Potassium Chloride Carbon Dioxide BUN Creatinine Glucose POC Glucose 295 H 233 H 201 H Hemoglobin A1c Magnesium Ferritin AST ALT Alkaline Phosphatase Lactate Dehydrogenase C-Reactive Protein Total Protein Albumin Arterial Blood Glucose Coronavirus (PCR) 06/16/21 06/16/21 06/17/21 17:21 21:27 07:12 WBC MCV MCH MCHC RDW Lymph % (Auto) Foster % (Auto) Eos % (Auto) Lymph # (Auto) Foster # (Auto) Eos # (Auto) Baso # (Auto) Seg Neutrophils % Seg Neuts % (Manual) Lymphocytes % (Manual) Seg Neutrophils # Seg Neutrophils # Man Lymphocytes # (Manual) D-Dimer ABG pH POC ABG pCO2 POC ABG pO2 ABG pO2 ABG HCO3 ABG O2 Saturation ABG Base Excess ABG Oxyhemoglobin ABG Sodium ABG Chloride ABG Glucose Oxyhemoglobin Carboxyhemoglobin Sodium Potassium Chloride Carbon Dioxide BUN Creatinine Glucose POC Glucose 299 H 290 H 67 L Hemoglobin A1c Magnesium Ferritin AST ALT Alkaline Phosphatase Lactate Dehydrogenase C-Reactive Protein Total Protein Albumin Arterial Blood Glucose Coronavirus (PCR) 06/17/21 06/17/21 06/17/21 11:53 17:02 22:25 WBC MCV MCH MCHC RDW Lymph % (Auto) Foster % (Auto) Eos % (Auto) Lymph # (Auto) Foster # (Auto) Eos # (Auto) Baso # (Auto) Seg Neutrophils % Seg Neuts % (Manual) Lymphocytes % (Manual) Seg Neutrophils # Seg Neutrophils # Man Lymphocytes # (Manual) D-Dimer ABG pH POC ABG pCO2 POC ABG pO2 ABG pO2 ABG HCO3 ABG O2 Saturation ABG Base Excess ABG Oxyhemoglobin ABG Sodium ABG Chloride ABG Glucose Oxyhemoglobin Carboxyhemoglobin Sodium Potassium Chloride Carbon Dioxide BUN Creatinine Glucose POC Glucose 199 H 362 H 235 H Hemoglobin A1c Magnesium Ferritin AST ALT Alkaline Phosphatase Lactate Dehydrogenase C-Reactive Protein Total Protein Albumin Arterial Blood Glucose Coronavirus (PCR) 06/18/21 06/18/21 06/18/21 08:00 11:48 16:40 WBC MCV MCH MCHC RDW Lymph % (Auto) Foster % (Auto) Eos % (Auto) Lymph # (Auto) Foster # (Auto) Eos # (Auto) Baso # (Auto) Seg Neutrophils % Seg Neuts % (Manual) Lymphocytes % (Manual) Seg Neutrophils # Seg Neutrophils # Man Lymphocytes # (Manual) D-Dimer ABG pH POC ABG pCO2 POC ABG pO2 ABG pO2 ABG HCO3 ABG O2 Saturation ABG Base Excess ABG Oxyhemoglobin ABG Sodium ABG Chloride ABG Glucose Oxyhemoglobin Carboxyhemoglobin Sodium Potassium Chloride Carbon Dioxide BUN Creatinine Glucose POC Glucose 62 L 211 H 305 H Hemoglobin A1c Magnesium Ferritin AST ALT Alkaline Phosphatase Lactate Dehydrogenase C-Reactive Protein Total Protein Albumin Arterial Blood Glucose Coronavirus (PCR) 06/18/21 06/19/21 06/19/21 21:26 07:27 11:32 WBC MCV MCH MCHC RDW Lymph % (Auto) Foster % (Auto) Eos % (Auto) Lymph # (Auto) Foster # (Auto) Eos # (Auto) Baso # (Auto) Seg Neutrophils % Seg Neuts % (Manual) Lymphocytes % (Manual) Seg Neutrophils # Seg Neutrophils # Man Lymphocytes # (Manual) D-Dimer ABG pH POC ABG pCO2 POC ABG pO2 ABG pO2 ABG HCO3 ABG O2 Saturation ABG Base Excess ABG Oxyhemoglobin ABG Sodium ABG Chloride ABG Glucose Oxyhemoglobin Carboxyhemoglobin Sodium Potassium Chloride Carbon Dioxide BUN Creatinine Glucose POC Glucose 149 H 60 L 208 H Hemoglobin A1c Magnesium Ferritin AST ALT Alkaline Phosphatase Lactate Dehydrogenase C-Reactive Protein Total Protein Albumin Arterial Blood Glucose Coronavirus (PCR) 06/19/21 06/19/21 06/20/21 16:06 22:28 07:48 WBC MCV MCH MCHC RDW Lymph % (Auto) Foster % (Auto) Eos % (Auto) Lymph # (Auto) Foster # (Auto) Eos # (Auto) Baso # (Auto) Seg Neutrophils % Seg Neuts % (Manual) Lymphocytes % (Manual) Seg Neutrophils # Seg Neutrophils # Man Lymphocytes # (Manual) D-Dimer ABG pH POC ABG pCO2 POC ABG pO2 ABG pO2 ABG HCO3 ABG O2 Saturation ABG Base Excess ABG Oxyhemoglobin ABG Sodium ABG Chloride ABG Glucose Oxyhemoglobin Carboxyhemoglobin Sodium Potassium Chloride Carbon Dioxide BUN Creatinine Glucose POC Glucose 266 H 166 H 58 L Hemoglobin A1c Magnesium Ferritin AST ALT Alkaline Phosphatase Lactate Dehydrogenase C-Reactive Protein Total Protein Albumin Arterial Blood Glucose Coronavirus (PCR) 06/20/21 06/20/21 06/20/21 09:09 11:04 16:01 WBC MCV MCH MCHC RDW Lymph % (Auto) Foster % (Auto) Eos % (Auto) Lymph # (Auto) Foster # (Auto) Eos # (Auto) Baso # (Auto) Seg Neutrophils % Seg Neuts % (Manual) Lymphocytes % (Manual) Seg Neutrophils # Seg Neutrophils # Man Lymphocytes # (Manual) D-Dimer ABG pH POC ABG pCO2 POC ABG pO2 ABG pO2 ABG HCO3 ABG O2 Saturation ABG Base Excess ABG Oxyhemoglobin ABG Sodium ABG Chloride ABG Glucose Oxyhemoglobin Carboxyhemoglobin Sodium Potassium Chloride Carbon Dioxide BUN Creatinine Glucose POC Glucose 146 H 225 H 330 H Hemoglobin A1c Magnesium Ferritin AST ALT Alkaline Phosphatase Lactate Dehydrogenase C-Reactive Protein Total Protein Albumin Arterial Blood Glucose Coronavirus (PCR) 06/20/21 06/21/21 06/21/21 20:46 06:45 06:45 WBC MCV MCH MCHC RDW 20.0 H Lymph % (Auto) Foster % (Auto) Eos % (Auto) Lymph # (Auto) Foster # (Auto) Eos # (Auto) Baso # (Auto) Seg Neutrophils % Seg Neuts % (Manual) Lymphocytes % (Manual) Seg Neutrophils # Seg Neutrophils # Man Lymphocytes # (Manual) D-Dimer ABG pH POC ABG pCO2 POC ABG pO2 ABG pO2 ABG HCO3 ABG O2 Saturation ABG Base Excess ABG Oxyhemoglobin ABG Sodium ABG Chloride ABG Glucose Oxyhemoglobin Carboxyhemoglobin Sodium Potassium 2.9 L* Chloride 95.0 L Carbon Dioxide 31 H BUN 23 H Creatinine 0.2 L Glucose 45 L POC Glucose 215 H Hemoglobin A1c Magnesium Ferritin AST ALT Alkaline Phosphatase Lactate Dehydrogenase C-Reactive Protein Total Protein Albumin Arterial Blood Glucose Coronavirus (PCR) 06/21/21 06/21/21 06/21/21 07:38 09:06 12:40 WBC MCV MCH MCHC RDW Lymph % (Auto) Foster % (Auto) Eos % (Auto) Lymph # (Auto) Foster # (Auto) Eos # (Auto) Baso # (Auto) Seg Neutrophils % Seg Neuts % (Manual) Lymphocytes % (Manual) Seg Neutrophils # Seg Neutrophils # Man Lymphocytes # (Manual) D-Dimer ABG pH POC ABG pCO2 POC ABG pO2 ABG pO2 ABG HCO3 ABG O2 Saturation ABG Base Excess ABG Oxyhemoglobin ABG Sodium ABG Chloride ABG Glucose Oxyhemoglobin Carboxyhemoglobin Sodium Potassium Chloride Carbon Dioxide BUN Creatinine Glucose POC Glucose 50 L 196 H 205 H Hemoglobin A1c Magnesium Ferritin AST ALT Alkaline Phosphatase Lactate Dehydrogenase C-Reactive Protein Total Protein Albumin Arterial Blood Glucose Coronavirus (PCR) 06/21/21 06/22/21 06/22/21 21:36 06:25 07:15 WBC MCV MCH MCHC RDW Lymph % (Auto) Foster % (Auto) Eos % (Auto) Lymph # (Auto) Foster # (Auto) Eos # (Auto) Baso # (Auto) Seg Neutrophils % Seg Neuts % (Manual) Lymphocytes % (Manual) Seg Neutrophils # Seg Neutrophils # Man Lymphocytes # (Manual) D-Dimer ABG pH POC ABG pCO2 POC ABG pO2 ABG pO2 ABG HCO3 ABG O2 Saturation ABG Base Excess ABG Oxyhemoglobin ABG Sodium ABG Chloride ABG Glucose Oxyhemoglobin Carboxyhemoglobin Sodium Potassium Chloride Carbon Dioxide BUN 20 H Creatinine 0.2 L Glucose POC Glucose 245 H 66 L Hemoglobin A1c Magnesium Ferritin AST ALT Alkaline Phosphatase Lactate Dehydrogenase C-Reactive Protein Total Protein Albumin Arterial Blood Glucose Coronavirus (PCR) 06/22/21 06/22/21 06/22/21 11:03 16:07 22:03 WBC MCV MCH MCHC RDW Lymph % (Auto) Foster % (Auto) Eos % (Auto) Lymph # (Auto) Foster # (Auto) Eos # (Auto) Baso # (Auto) Seg Neutrophils % Seg Neuts % (Manual) Lymphocytes % (Manual) Seg Neutrophils # Seg Neutrophils # Man Lymphocytes # (Manual) D-Dimer ABG pH POC ABG pCO2 POC ABG pO2 ABG pO2 ABG HCO3 ABG O2 Saturation ABG Base Excess ABG Oxyhemoglobin ABG Sodium ABG Chloride ABG Glucose Oxyhemoglobin Carboxyhemoglobin Sodium Potassium Chloride Carbon Dioxide BUN Creatinine Glucose POC Glucose 184 H 326 H 138 H Hemoglobin A1c Magnesium Ferritin AST ALT Alkaline Phosphatase Lactate Dehydrogenase C-Reactive Protein Total Protein Albumin Arterial Blood Glucose Coronavirus (PCR) 06/23/21 06/23/21 06/23/21 07:19 10:34 16:35 WBC MCV MCH MCHC RDW Lymph % (Auto) Foster % (Auto) Eos % (Auto) Lymph # (Auto) Foster # (Auto) Eos # (Auto) Baso # (Auto) Seg Neutrophils % Seg Neuts % (Manual) Lymphocytes % (Manual) Seg Neutrophils # Seg Neutrophils # Man Lymphocytes # (Manual) D-Dimer ABG pH POC ABG pCO2 POC ABG pO2 ABG pO2 ABG HCO3 ABG O2 Saturation ABG Base Excess ABG Oxyhemoglobin ABG Sodium ABG Chloride ABG Glucose Oxyhemoglobin Carboxyhemoglobin Sodium Potassium Chloride Carbon Dioxide BUN Creatinine Glucose POC Glucose 69 L 218 H 326 H Hemoglobin A1c Magnesium Ferritin AST ALT Alkaline Phosphatase Lactate Dehydrogenase C-Reactive Protein Total Protein Albumin Arterial Blood Glucose Coronavirus (PCR) 06/23/21 06/24/21 06/24/21 22:44 11:41 16:54 WBC MCV MCH MCHC RDW Lymph % (Auto) Foster % (Auto) Eos % (Auto) Lymph # (Auto) Foster # (Auto) Eos # (Auto) Baso # (Auto) Seg Neutrophils % Seg Neuts % (Manual) Lymphocytes % (Manual) Seg Neutrophils # Seg Neutrophils # Man Lymphocytes # (Manual) D-Dimer ABG pH POC ABG pCO2 POC ABG pO2 ABG pO2 ABG HCO3 ABG O2 Saturation ABG Base Excess ABG Oxyhemoglobin ABG Sodium ABG Chloride ABG Glucose Oxyhemoglobin Carboxyhemoglobin Sodium Potassium Chloride Carbon Dioxide BUN Creatinine Glucose POC Glucose 252 H 217 H 357 H Hemoglobin A1c Magnesium Ferritin AST ALT Alkaline Phosphatase Lactate Dehydrogenase C-Reactive Protein Total Protein Albumin Arterial Blood Glucose Coronavirus (PCR) 06/24/21 06/25/21 06/25/21 20:40 11:51 16:47 WBC MCV MCH MCHC RDW Lymph % (Auto) Foster % (Auto) Eos % (Auto) Lymph # (Auto) Foster # (Auto) Eos # (Auto) Baso # (Auto) Seg Neutrophils % Seg Neuts % (Manual) Lymphocytes % (Manual) Seg Neutrophils # Seg Neutrophils # Man Lymphocytes # (Manual) D-Dimer ABG pH POC ABG pCO2 POC ABG pO2 ABG pO2 ABG HCO3 ABG O2 Saturation ABG Base Excess ABG Oxyhemoglobin ABG Sodium ABG Chloride ABG Glucose Oxyhemoglobin Carboxyhemoglobin Sodium Potassium Chloride Carbon Dioxide BUN Creatinine Glucose POC Glucose 239 H 182 H 229 H Hemoglobin A1c Magnesium Ferritin AST ALT Alkaline Phosphatase Lactate Dehydrogenase C-Reactive Protein Total Protein Albumin Arterial Blood Glucose Coronavirus (PCR) 06/25/21 06/26/21 06/26/21 22:27 07:20 12:19 WBC MCV MCH MCHC RDW Lymph % (Auto) Foster % (Auto) Eos % (Auto) Lymph # (Auto) Foster # (Auto) Eos # (Auto) Baso # (Auto) Seg Neutrophils % Seg Neuts % (Manual) Lymphocytes % (Manual) Seg Neutrophils # Seg Neutrophils # Man Lymphocytes # (Manual) D-Dimer ABG pH POC ABG pCO2 POC ABG pO2 ABG pO2 ABG HCO3 ABG O2 Saturation ABG Base Excess ABG Oxyhemoglobin ABG Sodium ABG Chloride ABG Glucose Oxyhemoglobin Carboxyhemoglobin Sodium Potassium 3.2 L D Chloride Carbon Dioxide BUN 20 H Creatinine 0.3 L Glucose POC Glucose 209 H 273 H Hemoglobin A1c Magnesium Ferritin AST ALT 77 H Alkaline Phosphatase Lactate Dehydrogenase C-Reactive Protein Total Protein Albumin 3.3 L Arterial Blood Glucose Coronavirus (PCR) 06/26/21 06/26/21 06/27/21 16:52 20:55 07:14 WBC MCV MCH MCHC RDW Lymph % (Auto) Foster % (Auto) Eos % (Auto) Lymph # (Auto) Foster # (Auto) Eos # (Auto) Baso # (Auto) Seg Neutrophils % Seg Neuts % (Manual) Lymphocytes % (Manual) Seg Neutrophils # Seg Neutrophils # Man Lymphocytes # (Manual) D-Dimer ABG pH POC ABG pCO2 POC ABG pO2 ABG pO2 ABG HCO3 ABG O2 Saturation ABG Base Excess ABG Oxyhemoglobin ABG Sodium ABG Chloride ABG Glucose Oxyhemoglobin Carboxyhemoglobin Sodium Potassium Chloride Carbon Dioxide 31 H BUN 19 H Creatinine 0.2 L Glucose 112 H POC Glucose 326 H 220 H Hemoglobin A1c Magnesium Ferritin AST ALT Alkaline Phosphatase Lactate Dehydrogenase C-Reactive Protein Total Protein Albumin Arterial Blood Glucose Coronavirus (PCR) 06/27/21 06/27/21 06/27/21 07:29 10:54 15:49 WBC MCV MCH MCHC RDW Lymph % (Auto) Foster % (Auto) Eos % (Auto) Lymph # (Auto) Foster # (Auto) Eos # (Auto) Baso # (Auto) Seg Neutrophils % Seg Neuts % (Manual) Lymphocytes % (Manual) Seg Neutrophils # Seg Neutrophils # Man Lymphocytes # (Manual) D-Dimer ABG pH POC ABG pCO2 POC ABG pO2 ABG pO2 ABG HCO3 ABG O2 Saturation ABG Base Excess ABG Oxyhemoglobin ABG Sodium ABG Chloride ABG Glucose Oxyhemoglobin Carboxyhemoglobin Sodium Potassium Chloride Carbon Dioxide BUN Creatinine Glucose POC Glucose 115 H 228 H 240 H Hemoglobin A1c Magnesium Ferritin AST ALT Alkaline Phosphatase Lactate Dehydrogenase C-Reactive Protein Total Protein Albumin Arterial Blood Glucose Coronavirus (PCR) 06/28/21 06/28/21 06/28/21 05:43 05:43 07:13 WBC MCV MCH 33 H MCHC RDW 19.8 H Lymph % (Auto) Foster % (Auto) Eos % (Auto) Lymph # (Auto) Foster # (Auto) Eos # (Auto) Baso # (Auto) Seg Neutrophils % Seg Neuts % (Manual) Lymphocytes % (Manual) Seg Neutrophils # Seg Neutrophils # Man Lymphocytes # (Manual) D-Dimer ABG pH POC ABG pCO2 POC ABG pO2 ABG pO2 ABG HCO3 ABG O2 Saturation ABG Base Excess ABG Oxyhemoglobin ABG Sodium ABG Chloride ABG Glucose Oxyhemoglobin Carboxyhemoglobin Sodium Potassium 3.3 L Chloride Carbon Dioxide BUN 22 H Creatinine 0.2 L Glucose POC Glucose 69 L Hemoglobin A1c Magnesium Ferritin AST ALT 63 H Alkaline Phosphatase Lactate Dehydrogenase C-Reactive Protein Total Protein Albumin 3.3 L Arterial Blood Glucose Coronavirus (PCR) 06/28/21 06/28/21 06/28/21 12:18 15:37 21:01 WBC MCV MCH MCHC RDW Lymph % (Auto) Foster % (Auto) Eos % (Auto) Lymph # (Auto) Foster # (Auto) Eos # (Auto) Baso # (Auto) Seg Neutrophils % Seg Neuts % (Manual) Lymphocytes % (Manual) Seg Neutrophils # Seg Neutrophils # Man Lymphocytes # (Manual) D-Dimer ABG pH POC ABG pCO2 POC ABG pO2 ABG pO2 ABG HCO3 ABG O2 Saturation ABG Base Excess ABG Oxyhemoglobin ABG Sodium ABG Chloride ABG Glucose Oxyhemoglobin Carboxyhemoglobin Sodium Potassium Chloride Carbon Dioxide BUN Creatinine Glucose POC Glucose 154 H 201 H 191 H Hemoglobin A1c Magnesium Ferritin AST ALT Alkaline Phosphatase Lactate Dehydrogenase C-Reactive Protein Total Protein Albumin Arterial Blood Glucose Coronavirus (PCR) 06/29/21 06/29/21 06/29/21 11:55 15:47 21:06 WBC MCV MCH MCHC RDW Lymph % (Auto) Foster % (Auto) Eos % (Auto) Lymph # (Auto) Foster # (Auto) Eos # (Auto) Baso # (Auto) Seg Neutrophils % Seg Neuts % (Manual) Lymphocytes % (Manual) Seg Neutrophils # Seg Neutrophils # Man Lymphocytes # (Manual) D-Dimer ABG pH POC ABG pCO2 POC ABG pO2 ABG pO2 ABG HCO3 ABG O2 Saturation ABG Base Excess ABG Oxyhemoglobin ABG Sodium ABG Chloride ABG Glucose Oxyhemoglobin Carboxyhemoglobin Sodium Potassium Chloride Carbon Dioxide BUN Creatinine Glucose POC Glucose 238 H 249 H 155 H Hemoglobin A1c Magnesium Ferritin AST ALT Alkaline Phosphatase Lactate Dehydrogenase C-Reactive Protein Total Protein Albumin Arterial Blood Glucose Coronavirus (PCR) 06/30/21 06/30/21 06/30/21 04:00 07:50 11:50 WBC MCV MCH MCHC RDW Lymph % (Auto) [place] % (Auto) Eos % (Auto) Lymph # (Auto) Foster # (Auto) Eos # (Auto) Baso # (Auto) Seg Neutrophils % Seg Neuts % (Manual) Lymphocytes % (Manual) Seg Neutrophils # Seg Neutrophils # Man Lymphocytes # (Manual) D-Dimer ABG pH POC ABG pCO2 POC ABG pO2 ABG pO2 ABG HCO3 ABG O2 Saturation ABG Base Excess ABG Oxyhemoglobin ABG Sodium ABG Chloride ABG Glucose Oxyhemoglobin Carboxyhemoglobin Sodium Potassium 3.5 L Chloride Carbon Dioxide BUN 18 H Creatinine 0.3 L Glucose 111 H POC Glucose 117 H 250 H Hemoglobin A1c Magnesium Ferritin AST ALT Alkaline Phosphatase Lactate Dehydrogenase C-Reactive Protein Total Protein Albumin Arterial Blood Glucose Coronavirus (PCR) 06/30/21 06/30/21 07/01/21 16:05 21:02 07:26 WBC MCV MCH MCHC RDW Lymph % (Auto) [place] % (Auto) Eos % (Auto) Lymph # (Auto) Foster # (Auto) Eos # (Auto) Baso # (Auto) Seg Neutrophils % Seg Neuts % (Manual) Lymphocytes % (Manual) Seg Neutrophils # Seg Neutrophils # Man Lymphocytes # (Manual) D-Dimer ABG pH POC ABG pCO2 POC ABG pO2 ABG pO2 ABG HCO3 ABG O2 Saturation ABG Base Excess ABG Oxyhemoglobin ABG Sodium ABG Chloride ABG Glucose Oxyhemoglobin Carboxyhemoglobin Sodium Potassium Chloride Carbon Dioxide BUN Creatinine Glucose POC Glucose 250 H 217 H 111 H Hemoglobin A1c Magnesium Ferritin AST ALT Alkaline Phosphatase Lactate Dehydrogenase C-Reactive Protein Total Protein Albumin Arterial Blood Glucose Coronavirus (PCR) 07/01/21 07/01/21 07/01/21 11:06 15:48 21:31 WBC MCV MCH MCHC RDW Lymph % (Auto) Foster % (Auto) Eos % (Auto) Lymph # (Auto) Foster # (Auto) Eos # (Auto) Baso # (Auto) Seg Neutrophils % Seg Neuts % (Manual) Lymphocytes % (Manual) Seg Neutrophils # Seg Neutrophils # Man Lymphocytes # (Manual) D-Dimer ABG pH POC ABG pCO2 POC ABG pO2 ABG pO2 ABG HCO3 ABG O2 Saturation ABG Base Excess ABG Oxyhemoglobin ABG Sodium ABG Chloride ABG Glucose Oxyhemoglobin Carboxyhemoglobin Sodium Potassium Chloride Carbon Dioxide BUN Creatinine Glucose POC Glucose 229 H 239 H 199 H Hemoglobin A1c Magnesium Ferritin AST ALT Alkaline Phosphatase Lactate Dehydrogenase C-Reactive Protein Total Protein Albumin Arterial Blood Glucose Coronavirus (PCR) 07/02/21 07/02/21 07/02/21 11:50 16:44 21:49 WBC MCV MCH MCHC RDW Lymph % (Auto) Foster % (Auto) Eos % (Auto) Lymph # (Auto) Foster # (Auto) Eos # (Auto) Baso # (Auto) Seg Neutrophils % Seg Neuts % (Manual) Lymphocytes % (Manual) Seg Neutrophils # Seg Neutrophils # Man Lymphocytes # (Manual) D-Dimer ABG pH POC ABG pCO2 POC ABG pO2 ABG pO2 ABG HCO3 ABG O2 Saturation ABG Base Excess ABG Oxyhemoglobin ABG Sodium ABG Chloride ABG Glucose Oxyhemoglobin Carboxyhemoglobin Sodium Potassium Chloride Carbon Dioxide BUN Creatinine Glucose POC Glucose 230 H 203 H 197 H Hemoglobin A1c Magnesium Ferritin AST ALT Alkaline Phosphatase Lactate Dehydrogenase C-Reactive Protein Total Protein Albumin Arterial Blood Glucose Coronavirus (PCR) 07/03/21 07/03/21 07/03/21 05:46 05:46 11:59 WBC MCV MCH MCHC RDW 19.6 H Lymph % (Auto) Foster % (Auto) Eos % (Auto) Lymph # (Auto) Foster # (Auto) Eos # (Auto) Baso # (Auto) Seg Neutrophils % Seg Neuts % (Manual) Lymphocytes % (Manual) Seg Neutrophils # Seg Neutrophils # Man Lymphocytes # (Manual) D-Dimer ABG pH POC ABG pCO2 POC ABG pO2 ABG pO2 ABG HCO3 ABG O2 Saturation ABG Base Excess ABG Oxyhemoglobin ABG Sodium ABG Chloride ABG Glucose Oxyhemoglobin Carboxyhemoglobin Sodium Potassium 3.2 L Chloride Carbon Dioxide BUN Creatinine 0.3 L Glucose POC Glucose 145 H Hemoglobin A1c Magnesium Ferritin AST ALT Alkaline Phosphatase Lactate Dehydrogenase C-Reactive Protein Total Protein Albumin Arterial Blood Glucose Coronavirus (PCR) 07/03/21 07/03/21 07/04/21 16:40 22:00 06:35 WBC MCV MCH MCHC RDW Lymph % (Auto) Foster % (Auto) Eos % (Auto) Lymph # (Auto) Foster # (Auto) Eos # (Auto) Baso # (Auto) Seg Neutrophils % Seg Neuts % (Manual) Lymphocytes % (Manual) Seg Neutrophils # Seg Neutrophils # Man Lymphocytes # (Manual) D-Dimer ABG pH POC ABG pCO2 POC ABG pO2 ABG pO2 ABG HCO3 ABG O2 Saturation ABG Base Excess ABG Oxyhemoglobin ABG Sodium ABG Chloride ABG Glucose Oxyhemoglobin Carboxyhemoglobin Sodium Potassium Chloride Carbon Dioxide BUN Creatinine 0.3 L Glucose 118 H POC Glucose 176 H 127 H Hemoglobin A1c Magnesium Ferritin AST ALT Alkaline Phosphatase Lactate Dehydrogenase C-Reactive Protein Total Protein Albumin Arterial Blood Glucose Coronavirus (PCR) 07/04/21 07/04/21 07/05/21 12:30 16:38 08:37 WBC MCV MCH MCHC RDW Lymph % (Auto) Foster % (Auto) Eos % (Auto) Lymph # (Auto) Foster # (Auto) Eos # (Auto) Baso # (Auto) Seg Neutrophils % Seg Neuts % (Manual) Lymphocytes % (Manual) Seg Neutrophils # Seg Neutrophils # Man Lymphocytes # (Manual) D-Dimer ABG pH POC ABG pCO2 POC ABG pO2 ABG pO2 ABG HCO3 ABG O2 Saturation ABG Base Excess ABG Oxyhemoglobin ABG Sodium ABG Chloride ABG Glucose Oxyhemoglobin Carboxyhemoglobin Sodium Potassium Chloride Carbon Dioxide BUN Creatinine Glucose POC Glucose 162 H 205 H 115 H Hemoglobin A1c Magnesium Ferritin AST ALT Alkaline Phosphatase Lactate Dehydrogenase C-Reactive Protein Total Protein Albumin Arterial Blood Glucose Coronavirus (PCR) 07/05/21 07/05/21 07/05/21 10:57 16:42 21:14 WBC MCV MCH MCHC RDW Lymph % (Auto) Foster % (Auto) Eos % (Auto) Lymph # (Auto) Foster # (Auto) Eos # (Auto) Baso # (Auto) Seg Neutrophils % Seg Neuts % (Manual) Lymphocytes % (Manual) Seg Neutrophils # Seg Neutrophils # Man Lymphocytes # (Manual) D-Dimer ABG pH POC ABG pCO2 POC ABG pO2 ABG pO2 ABG HCO3 ABG O2 Saturation ABG Base Excess ABG Oxyhemoglobin ABG Sodium ABG Chloride ABG Glucose Oxyhemoglobin Carboxyhemoglobin Sodium Potassium Chloride Carbon Dioxide BUN Creatinine Glucose POC Glucose 151 H 184 H 130 H Hemoglobin A1c Magnesium Ferritin AST ALT Alkaline Phosphatase Lactate Dehydrogenase C-Reactive Protein Total Protein Albumin Arterial Blood Glucose Coronavirus (PCR) 07/06/21 07/06/21 07/06/21 07:31 11:49 16:46 WBC MCV MCH MCHC RDW Lymph % (Auto) Foster % (Auto) Eos % (Auto) Lymph # (Auto) Foster # (Auto) Eos # (Auto) Baso # (Auto) Seg Neutrophils % Seg Neuts % (Manual) Lymphocytes % (Manual) Seg Neutrophils # Seg Neutrophils # Man Lymphocytes # (Manual) D-Dimer ABG pH POC ABG pCO2 POC ABG pO2 ABG pO2 ABG HCO3 ABG O2 Saturation ABG Base Excess ABG Oxyhemoglobin ABG Sodium ABG Chloride ABG Glucose Oxyhemoglobin Carboxyhemoglobin Sodium Potassium Chloride Carbon Dioxide BUN Creatinine Glucose POC Glucose 106 H 173 H 205 H Hemoglobin A1c Magnesium Ferritin AST ALT Alkaline Phosphatase Lactate Dehydrogenase C-Reactive Protein Total Protein Albumin Arterial Blood Glucose Coronavirus (PCR) 07/06/21 07/07/21 07/07/21 21:38 06:00 06:00 WBC 16.1 H MCV MCH MCHC RDW 18.8 H Lymph % (Auto) Foster % (Auto) Eos % (Auto) Lymph # (Auto) Foster # (Auto) 1.1 H Eos # (Auto) Baso # (Auto) 0.2 H Seg Neutrophils % 74.9 H Seg Neuts % (Manual) Lymphocytes % (Manual) Seg Neutrophils # 12.1 H Seg Neutrophils # Man Lymphocytes # (Manual) D-Dimer ABG pH POC ABG pCO2 POC ABG pO2 ABG pO2 ABG HCO3 ABG O2 Saturation ABG Base Excess ABG Oxyhemoglobin ABG Sodium ABG Chloride ABG Glucose Oxyhemoglobin Carboxyhemoglobin Sodium Potassium 3.5 L D Chloride Carbon Dioxide BUN 6 L Creatinine < 0.2 L Glucose 106 H POC Glucose 120 H Hemoglobin A1c Magnesium Ferritin AST ALT Alkaline Phosphatase Lactate Dehydrogenase C-Reactive Protein Total Protein Albumin Arterial Blood Glucose Coronavirus (PCR) 07/07/21 07/07/21 07/07/21 07:10 11:53 15:53 WBC MCV MCH MCHC RDW Lymph % (Auto) [place] % (Auto) Eos % (Auto) Lymph # (Auto) Foster # (Auto) Eos # (Auto) Baso # (Auto) Seg Neutrophils % Seg Neuts % (Manual) Lymphocytes % (Manual) Seg Neutrophils # Seg Neutrophils # Man Lymphocytes # (Manual) D-Dimer ABG pH POC ABG pCO2 POC ABG pO2 ABG pO2 ABG HCO3 ABG O2 Saturation ABG Base Excess ABG Oxyhemoglobin ABG Sodium ABG Chloride ABG Glucose Oxyhemoglobin Carboxyhemoglobin Sodium Potassium Chloride Carbon Dioxide BUN Creatinine Glucose POC Glucose 132 H 169 H 242 H Hemoglobin A1c Magnesium Ferritin AST ALT Alkaline Phosphatase Lactate Dehydrogenase C-Reactive Protein Total Protein Albumin Arterial Blood Glucose Coronavirus (PCR) 07/07/21 07/08/21 07/08/21 21:41 08:09 12:20 WBC MCV MCH MCHC RDW Lymph % (Auto) Foster % (Auto) Eos % (Auto) Lymph # (Auto) Foster # (Auto) Eos # (Auto) Baso # (Auto) Seg Neutrophils % Seg Neuts % (Manual) Lymphocytes % (Manual) Seg Neutrophils # Seg Neutrophils # Man Lymphocytes # (Manual) D-Dimer ABG pH POC ABG pCO2 POC ABG pO2 ABG pO2 ABG HCO3 ABG O2 Saturation ABG Base Excess ABG Oxyhemoglobin ABG Sodium ABG Chloride ABG Glucose Oxyhemoglobin Carboxyhemoglobin Sodium Potassium Chloride Carbon Dioxide BUN Creatinine Glucose POC Glucose 128 H 132 H 179 H Hemoglobin A1c Magnesium Ferritin AST ALT Alkaline Phosphatase Lactate Dehydrogenase C-Reactive Protein Total Protein Albumin Arterial Blood Glucose Coronavirus (PCR) 07/08/21 07/08/21 07/08/21 16:37 21:45 22:44 WBC MCV MCH MCHC RDW Lymph % (Auto) [place] % (Auto) Eos % (Auto) Lymph # (Auto) Foster # (Auto) Eos # (Auto) Baso # (Auto) Seg Neutrophils % Seg Neuts % (Manual) Lymphocytes % (Manual) Seg Neutrophils # Seg Neutrophils # Man Lymphocytes # (Manual) D-Dimer ABG pH POC ABG pCO2 POC ABG pO2 ABG pO2 ABG HCO3 ABG O2 Saturation ABG Base Excess ABG Oxyhemoglobin ABG Sodium ABG Chloride ABG Glucose Oxyhemoglobin Carboxyhemoglobin Sodium Potassium Chloride Carbon Dioxide BUN Creatinine Glucose POC Glucose 192 H 51 L 137 H Hemoglobin A1c Magnesium Ferritin AST ALT Alkaline Phosphatase Lactate Dehydrogenase C-Reactive Protein Total Protein Albumin Arterial Blood Glucose Coronavirus (PCR) 07/09/21 07/09/21 07/09/21 04:45 04:45 04:45 WBC MCV MCH MCHC RDW 18.3 H Lymph % (Auto) Foster % (Auto) Eos % (Auto) Lymph # (Auto) Foster # (Auto) Eos # (Auto) Baso # (Auto) Seg Neutrophils % Seg Neuts % (Manual) 82.0 H Lymphocytes % (Manual) 13.0 L Seg Neutrophils # Seg Neutrophils # Man 7.8 H Lymphocytes # (Manual) D-Dimer 638.35 H ABG pH POC ABG pCO2 POC ABG pO2 ABG pO2 ABG HCO3 ABG O2 Saturation ABG Base Excess ABG Oxyhemoglobin ABG Sodium ABG Chloride ABG Glucose Oxyhemoglobin Carboxyhemoglobin Sodium Potassium Chloride 96.9 L Carbon Dioxide 35 H BUN Creatinine 0.2 L Glucose 135 H POC Glucose Hemoglobin A1c Magnesium Ferritin AST ALT Alkaline Phosphatase Lactate Dehydrogenase C-Reactive Protein 4.30 H Total Protein Albumin Arterial Blood Glucose Coronavirus (PCR) 07/09/21 07/09/21 07/09/21 05:19 07:36 11:16 WBC MCV MCH MCHC RDW Lymph % (Auto) Foster % (Auto) Eos % (Auto) Lymph # (Auto) Foster # (Auto) Eos # (Auto) Baso # (Auto) Seg Neutrophils % Seg Neuts % (Manual) Lymphocytes % (Manual) Seg Neutrophils # Seg Neutrophils # Man Lymphocytes # (Manual) D-Dimer ABG pH POC ABG pCO2 POC ABG pO2 ABG pO2 ABG HCO3 ABG O2 Saturation ABG Base Excess ABG Oxyhemoglobin ABG Sodium ABG Chloride ABG Glucose Oxyhemoglobin Carboxyhemoglobin Sodium Potassium Chloride Carbon Dioxide BUN Creatinine Glucose POC Glucose 135 H 148 H 212 H Hemoglobin A1c Magnesium Ferritin AST ALT Alkaline Phosphatase Lactate Dehydrogenase C-Reactive Protein Total Protein Albumin Arterial Blood Glucose Coronavirus (PCR) 10/07/09/21 07/10/21 15:21 21:12 05:40 WBC MCV MCH MCHC RDW Lymph % (Auto) Foster % (Auto) Eos % (Auto) Lymph # (Auto) Foster # (Auto) Eos # (Auto) Baso # (Auto) Seg Neutrophils % Seg Neuts % (Manual) Lymphocytes % (Manual) Seg Neutrophils # Seg Neutrophils # Man Lymphocytes # (Manual) D-Dimer ABG pH POC ABG pCO2 POC ABG pO2 ABG pO2 ABG HCO3 ABG O2 Saturation ABG Base Excess ABG Oxyhemoglobin ABG Sodium ABG Chloride ABG Glucose Oxyhemoglobin Carboxyhemoglobin Sodium Potassium 3.3 L Chloride 95.1 L Carbon Dioxide 39 H BUN Creatinine 0.2 L Glucose 122 H POC Glucose 128 H 196 H Hemoglobin A1c Magnesium Ferritin AST ALT Alkaline Phosphatase Lactate Dehydrogenase C-Reactive Protein Total Protein Albumin Arterial Blood Glucose Coronavirus (PCR) 07/10/21 07/10/21 07/10/21 07:38 11:15 16:29 WBC MCV MCH MCHC RDW Lymph % (Auto) [place] % (Auto) Eos % (Auto) Lymph # (Auto) Foster # (Auto) Eos # (Auto) Baso # (Auto) Seg Neutrophils % Seg Neuts % (Manual) Lymphocytes % (Manual) Seg Neutrophils # Seg Neutrophils # Man Lymphocytes # (Manual) D-Dimer ABG pH POC ABG pCO2 POC ABG pO2 ABG pO2 ABG HCO3 ABG O2 Saturation ABG Base Excess ABG Oxyhemoglobin ABG Sodium ABG Chloride ABG Glucose Oxyhemoglobin Carboxyhemoglobin Sodium Potassium Chloride Carbon Dioxide BUN Creatinine Glucose POC Glucose 128 H 175 H 174 H Hemoglobin A1c Magnesium Ferritin AST ALT Alkaline Phosphatase Lactate Dehydrogenase C-Reactive Protein Total Protein Albumin Arterial Blood Glucose Coronavirus (PCR) 07/10/21 07/11/21 07/11/21 20:49 05:50 12:08 WBC MCV MCH MCHC RDW Lymph % (Auto) [place] % (Auto) Eos % (Auto) Lymph # (Auto) Foster # (Auto) Eos # (Auto) Baso # (Auto) Seg Neutrophils % Seg Neuts % (Manual) Lymphocytes % (Manual) Seg Neutrophils # Seg Neutrophils # Man Lymphocytes # (Manual) D-Dimer ABG pH POC ABG pCO2 POC ABG pO2 ABG pO2 ABG HCO3 ABG O2 Saturation ABG Base Excess ABG Oxyhemoglobin ABG Sodium ABG Chloride ABG Glucose Oxyhemoglobin Carboxyhemoglobin Sodium Potassium Chloride 97.3 L Carbon Dioxide 34 H BUN Creatinine 0.2 L Glucose 109 H POC Glucose 142 H 220 H Hemoglobin A1c Magnesium Ferritin AST ALT Alkaline Phosphatase Lactate Dehydrogenase C-Reactive Protein Total Protein Albumin Arterial Blood Glucose Coronavirus (PCR) 07/11/21 07/11/21 07/12/21 17:09 21:55 07:36 WBC MCV MCH MCHC RDW Lymph % (Auto) Foster % (Auto) Eos % (Auto) Lymph # (Auto) Foster # (Auto) Eos # (Auto) Baso # (Auto) Seg Neutrophils % Seg Neuts % (Manual) Lymphocytes % (Manual) Seg Neutrophils # Seg Neutrophils # Man Lymphocytes # (Manual) D-Dimer ABG pH POC ABG pCO2 POC ABG pO2 ABG pO2 ABG HCO3 ABG O2 Saturation ABG Base Excess ABG Oxyhemoglobin ABG Sodium ABG Chloride ABG Glucose Oxyhemoglobin Carboxyhemoglobin Sodium Potassium Chloride Carbon Dioxide BUN Creatinine Glucose POC Glucose 219 H 124 H 114 H Hemoglobin A1c Magnesium Ferritin AST ALT Alkaline Phosphatase Lactate Dehydrogenase C-Reactive Protein Total Protein Albumin Arterial Blood Glucose Coronavirus (PCR) 07/12/21 07/12/21 07/12/21 11:08 15:43 22:20 WBC MCV MCH MCHC RDW Lymph % (Auto) [place] % (Auto) Eos % (Auto) Lymph # (Auto) Foster # (Auto) Eos # (Auto) Baso # (Auto) Seg Neutrophils % Seg Neuts % (Manual) Lymphocytes % (Manual) Seg Neutrophils # Seg Neutrophils # Man Lymphocytes # (Manual) D-Dimer ABG pH POC ABG pCO2 POC ABG pO2 ABG pO2 ABG HCO3 ABG O2 Saturation ABG Base Excess ABG Oxyhemoglobin ABG Sodium ABG Chloride ABG Glucose Oxyhemoglobin Carboxyhemoglobin Sodium Potassium Chloride Carbon Dioxide BUN Creatinine Glucose POC Glucose 195 H 276 H 189 H Hemoglobin A1c Magnesium Ferritin AST ALT Alkaline Phosphatase Lactate Dehydrogenase C-Reactive Protein Total Protein Albumin Arterial Blood Glucose Coronavirus (PCR) 07/13/21 07/13/21 07/13/21 08:01 08:08 10:17 WBC MCV MCH MCHC RDW Lymph % (Auto) [place] % (Auto) Eos % (Auto) Lymph # (Auto) Foster # (Auto) Eos # (Auto) Baso # (Auto) Seg Neutrophils % Seg Neuts % (Manual) Lymphocytes % (Manual) Seg Neutrophils # Seg Neutrophils # Man Lymphocytes # (Manual) D-Dimer ABG pH POC ABG pCO2 POC ABG pO2 ABG pO2 ABG HCO3 ABG O2 Saturation ABG Base Excess ABG Oxyhemoglobin ABG Sodium ABG Chloride ABG Glucose Oxyhemoglobin Carboxyhemoglobin Sodium Potassium Chloride 94.4 L Carbon Dioxide 34 H BUN Creatinine 0.3 L Glucose 149 H POC Glucose 132 H 265 H Hemoglobin A1c Magnesium Ferritin AST ALT Alkaline Phosphatase Lactate Dehydrogenase C-Reactive Protein Total Protein Albumin Arterial Blood Glucose Coronavirus (PCR) 07/13/21 07/13/21 07/14/21 17:58 21:41 07:34 WBC MCV MCH MCHC RDW Lymph % (Auto) [place] % (Auto) Eos % (Auto) Lymph # (Auto) Foster # (Auto) Eos # (Auto) Baso # (Auto) Seg Neutrophils % Seg Neuts % (Manual) Lymphocytes % (Manual) Seg Neutrophils # Seg Neutrophils # Man Lymphocytes # (Manual) D-Dimer ABG pH POC ABG pCO2 POC ABG pO2 ABG pO2 ABG HCO3 ABG O2 Saturation ABG Base Excess ABG Oxyhemoglobin ABG Sodium ABG Chloride ABG Glucose Oxyhemoglobin Carboxyhemoglobin Sodium Potassium Chloride Carbon Dioxide BUN Creatinine Glucose POC Glucose 217 H 223 H 116 H Hemoglobin A1c Magnesium Ferritin AST ALT Alkaline Phosphatase Lactate Dehydrogenase C-Reactive Protein Total Protein Albumin Arterial Blood Glucose Coronavirus (PCR) 07/14/21 07/14/21 07/14/21 10:50 17:33 20:51 WBC MCV MCH MCHC RDW Lymph % (Auto) [place] % (Auto) Eos % (Auto) Lymph # (Auto) Foster # (Auto) Eos # (Auto) Baso # (Auto) Seg Neutrophils % Seg Neuts % (Manual) Lymphocytes % (Manual) Seg Neutrophils # Seg Neutrophils # Man Lymphocytes # (Manual) D-Dimer ABG pH POC ABG pCO2 POC ABG pO2 ABG pO2 ABG HCO3 ABG O2 Saturation ABG Base Excess ABG Oxyhemoglobin ABG Sodium ABG Chloride ABG Glucose Oxyhemoglobin Carboxyhemoglobin Sodium Potassium Chloride Carbon Dioxide BUN Creatinine Glucose POC Glucose 191 H 173 H 132 H Hemoglobin A1c Magnesium Ferritin AST ALT Alkaline Phosphatase Lactate Dehydrogenase C-Reactive Protein Total Protein Albumin Arterial Blood Glucose Coronavirus (PCR) 07/15/21 07/15/2121 04:00 07:59 12:31 WBC MCV MCH MCHC RDW Lymph % (Auto) Foster % (Auto) Eos % (Auto) Lymph # (Auto) Foster # (Auto) Eos # (Auto) Baso # (Auto) Seg Neutrophils % Seg Neuts % (Manual) Lymphocytes % (Manual) Seg Neutrophils # Seg Neutrophils # Man Lymphocytes # (Manual) D-Dimer ABG pH POC ABG pCO2 POC ABG pO2 ABG pO2 ABG HCO3 ABG O2 Saturation ABG Base Excess ABG Oxyhemoglobin ABG Sodium ABG Chloride ABG Glucose Oxyhemoglobin Carboxyhemoglobin Sodium Potassium Chloride 96.0 L Carbon Dioxide 32 H BUN Creatinine 0.3 L Glucose 208 H POC Glucose 117 H 195 H Hemoglobin A1c Magnesium Ferritin AST ALT Alkaline Phosphatase Lactate Dehydrogenase C-Reactive Protein Total Protein Albumin Arterial Blood Glucose Coronavirus (PCR) 07/15/21 07/15/21 07/16/21 18:00 20:57 04:40 WBC MCV MCH MCHC RDW 17.1 H Lymph % (Auto) Foster % (Auto) Eos % (Auto) Lymph # (Auto) Foster # (Auto) Eos # (Auto) Baso # (Auto) Seg Neutrophils % Seg Neuts % (Manual) Lymphocytes % (Manual) Seg Neutrophils # Seg Neutrophils # Man Lymphocytes # (Manual) D-Dimer ABG pH POC ABG pCO2 POC ABG pO2 ABG pO2 ABG HCO3 ABG O2 Saturation ABG Base Excess ABG Oxyhemoglobin ABG Sodium ABG Chloride ABG Glucose Oxyhemoglobin Carboxyhemoglobin Sodium Potassium Chloride Carbon Dioxide BUN Creatinine Glucose POC Glucose 217 H 111 H Hemoglobin A1c Magnesium Ferritin AST ALT Alkaline Phosphatase Lactate Dehydrogenase C-Reactive Protein Total Protein Albumin Arterial Blood Glucose Coronavirus (PCR) 07/16/21 07/16/21 07/16/21 04:40 07:08 11:11 WBC MCV MCH MCHC RDW Lymph % (Auto) Foster % (Auto) Eos % (Auto) Lymph # (Auto) Foster # (Auto) Eos # (Auto) Baso # (Auto) Seg Neutrophils % Seg Neuts % (Manual) Lymphocytes % (Manual) Seg Neutrophils # Seg Neutrophils # Man Lymphocytes # (Manual) D-Dimer ABG pH POC ABG pCO2 POC ABG pO2 ABG pO2 ABG HCO3 ABG O2 Saturation ABG Base Excess ABG Oxyhemoglobin ABG Sodium ABG Chloride ABG Glucose Oxyhemoglobin Carboxyhemoglobin Sodium Potassium 3.4 L Chloride 94.6 L Carbon Dioxide 36 H BUN Creatinine < 0.2 L Glucose 101 H POC Glucose 118 H 184 H Hemoglobin A1c Magnesium Ferritin AST ALT Alkaline Phosphatase Lactate Dehydrogenase C-Reactive Protein Total Protein Albumin Arterial Blood Glucose Coronavirus (PCR) 07/16/21 07/16/21 07/17/21 17:29 22:01 08:10 WBC MCV MCH MCHC RDW Lymph % (Auto) Foster % (Auto) Eos % (Auto) Lymph # (Auto) Foster # (Auto) Eos # (Auto) Baso # (Auto) Seg Neutrophils % Seg Neuts % (Manual) Lymphocytes % (Manual) Seg Neutrophils # Seg Neutrophils # Man Lymphocytes # (Manual) D-Dimer ABG pH POC ABG pCO2 POC ABG pO2 ABG pO2 ABG HCO3 ABG O2 Saturation ABG Base Excess ABG Oxyhemoglobin ABG Sodium ABG Chloride ABG Glucose Oxyhemoglobin Carboxyhemoglobin Sodium Potassium Chloride Carbon Dioxide BUN Creatinine Glucose POC Glucose 200 H 147 H 118 H Hemoglobin A1c Magnesium Ferritin AST ALT Alkaline Phosphatase Lactate Dehydrogenase C-Reactive Protein Total Protein Albumin Arterial Blood Glucose Coronavirus (PCR) 07/17/21 07/17/21 07/17/21 11:38 16:24 21:13 WBC MCV MCH MCHC RDW Lymph % (Auto) Foster % (Auto) Eos % (Auto) Lymph # (Auto) Foster # (Auto) Eos # (Auto) Baso # (Auto) Seg Neutrophils % Seg Neuts % (Manual) Lymphocytes % (Manual) Seg Neutrophils # Seg Neutrophils # Man Lymphocytes # (Manual) D-Dimer ABG pH POC ABG pCO2 POC ABG pO2 ABG pO2 ABG HCO3 ABG O2 Saturation ABG Base Excess ABG Oxyhemoglobin ABG Sodium ABG Chloride ABG Glucose Oxyhemoglobin Carboxyhemoglobin Sodium Potassium Chloride Carbon Dioxide BUN Creatinine Glucose POC Glucose 151 H 268 H 115 H Hemoglobin A1c Magnesium Ferritin AST ALT Alkaline Phosphatase Lactate Dehydrogenase C-Reactive Protein Total Protein Albumin Arterial Blood Glucose Coronavirus (PCR) 07/18/21 07/18/21 07/18/21 07:58 12:29 20:24 WBC MCV MCH MCHC RDW Lymph % (Auto) Foster % (Auto) Eos % (Auto) Lymph # (Auto) Foster # (Auto) Eos # (Auto) Baso # (Auto) Seg Neutrophils % Seg Neuts % (Manual) Lymphocytes % (Manual) Seg Neutrophils # Seg Neutrophils # Man Lymphocytes # (Manual) D-Dimer ABG pH POC ABG pCO2 POC ABG pO2 ABG pO2 ABG HCO3 ABG O2 Saturation ABG Base Excess ABG Oxyhemoglobin ABG Sodium ABG Chloride ABG Glucose Oxyhemoglobin Carboxyhemoglobin Sodium Potassium Chloride Carbon Dioxide BUN Creatinine Glucose POC Glucose 135 H 139 H 130 H Hemoglobin A1c Magnesium Ferritin AST ALT Alkaline Phosphatase Lactate Dehydrogenase C-Reactive Protein Total Protein Albumin Arterial Blood Glucose Coronavirus (PCR) 07/19/21 07/19/21 07/19/21 06:55 06:55 07:54 WBC 14.5 H MCV MCH MCHC RDW 17.3 H Lymph % (Auto) 9.6 L Foster % (Auto) Eos % (Auto) Lymph # (Auto) Foster # (Auto) Eos # (Auto) 0.6 H Baso # (Auto) Seg Neutrophils % 80.3 H Seg Neuts % (Manual) Lymphocytes % (Manual) Seg Neutrophils # 11.7 H Seg Neutrophils # Man Lymphocytes # (Manual) D-Dimer ABG pH POC ABG pCO2 67.9 H POC ABG pO2 131.0 H ABG pO2 ABG HCO3 ABG O2 Saturation ABG Base Excess ABG Oxyhemoglobin ABG Sodium ABG Chloride 97.0 L ABG Glucose 133 H Oxyhemoglobin Carboxyhemoglobin Sodium Potassium Chloride 95.3 L Carbon Dioxide 35 H BUN Creatinine < 0.2 L Glucose 138 H POC Glucose Hemoglobin A1c Magnesium Ferritin AST ALT Alkaline Phosphatase Lactate Dehydrogenase C-Reactive Protein Total Protein Albumin Arterial Blood Glucose 133 H Coronavirus (PCR) 07/19/21 07/19/21 07/19/21 08:10 11:43 17:04 WBC MCV MCH MCHC RDW Lymph % (Auto) Foster % (Auto) Eos % (Auto) Lymph # (Auto) Foster # (Auto) Eos # (Auto) Baso # (Auto) Seg Neutrophils % Seg Neuts % (Manual) Lymphocytes % (Manual) Seg Neutrophils # Seg Neutrophils # Man Lymphocytes # (Manual) D-Dimer ABG pH POC ABG pCO2 POC ABG pO2 ABG pO2 ABG HCO3 ABG O2 Saturation ABG Base Excess ABG Oxyhemoglobin ABG Sodium ABG Chloride ABG Glucose Oxyhemoglobin Carboxyhemoglobin Sodium Potassium Chloride Carbon Dioxide BUN Creatinine Glucose POC Glucose 129 H 126 H 108 H Hemoglobin A1c Magnesium Ferritin AST ALT Alkaline Phosphatase Lactate Dehydrogenase C-Reactive Protein Total Protein Albumin Arterial Blood Glucose Coronavirus (PCR) 07/19/21 07/20/21 07/20/21 21:10 04:00 04:00 WBC MCV MCH MCHC RDW 17.0 H Lymph % (Auto) Foster % (Auto) 8.9 H Eos % (Auto) 6.3 H Lymph # (Auto) Foster # (Auto) 0.9 H Eos # (Auto) 0.6 H Baso # (Auto) Seg Neutrophils % 70.2 H Seg Neuts % (Manual) Lymphocytes % (Manual) Seg Neutrophils # Seg Neutrophils # Man Lymphocytes # (Manual) D-Dimer ABG pH POC ABG pCO2 POC ABG pO2 ABG pO2 ABG HCO3 ABG O2 Saturation ABG Base Excess ABG Oxyhemoglobin ABG Sodium ABG Chloride ABG Glucose Oxyhemoglobin Carboxyhemoglobin Sodium Potassium Chloride 96.7 L Carbon Dioxide 36 H BUN Creatinine 0.2 L Glucose 102 H POC Glucose 109 H Hemoglobin A1c Magnesium Ferritin AST ALT Alkaline Phosphatase Lactate Dehydrogenase C-Reactive Protein Total Protein Albumin 3.2 L Arterial Blood Glucose Coronavirus (PCR) 07/20/21 07/20/21 07/20/21 11:15 15:34 17:01 WBC MCV MCH MCHC RDW Lymph % (Auto) Foster % (Auto) Eos % (Auto) Lymph # (Auto) Foster # (Auto) Eos # (Auto) Baso # (Auto) Seg Neutrophils % Seg Neuts % (Manual) Lymphocytes % (Manual) Seg Neutrophils # Seg Neutrophils # Man Lymphocytes # (Manual) D-Dimer ABG pH POC ABG pCO2 POC ABG pO2 ABG pO2 ABG HCO3 ABG O2 Saturation ABG Base Excess ABG Oxyhemoglobin ABG Sodium ABG Chloride ABG Glucose Oxyhemoglobin Carboxyhemoglobin Sodium Potassium Chloride Carbon Dioxide BUN Creatinine Glucose POC Glucose 109 H 152 H 125 H Hemoglobin A1c Magnesium Ferritin AST ALT Alkaline Phosphatase Lactate Dehydrogenase C-Reactive Protein Total Protein Albumin Arterial Blood Glucose Coronavirus (PCR) 07/20/21 07/21/21 07/21/21 21:00 04:48 04:48 WBC 12.8 H MCV MCH MCHC RDW 16.8 H Lymph % (Auto) 9.3 L Foster % (Auto) Eos % (Auto) Lymph # (Auto) Foster # (Auto) 0.9 H Eos # (Auto) Baso # (Auto) Seg Neutrophils % 81.1 H Seg Neuts % (Manual) Lymphocytes % (Manual) Seg Neutrophils # 10.4 H Seg Neutrophils # Man Lymphocytes # (Manual) D-Dimer ABG pH POC ABG pCO2 POC ABG pO2 ABG pO2 ABG HCO3 ABG O2 Saturation ABG Base Excess ABG Oxyhemoglobin ABG Sodium ABG Chloride ABG Glucose Oxyhemoglobin Carboxyhemoglobin Sodium Potassium Chloride 95.4 L Carbon Dioxide 33 H BUN 6 L Creatinine < 0.2 L Glucose 155 H POC Glucose 211 H Hemoglobin A1c Magnesium 1.60 L Ferritin AST ALT Alkaline Phosphatase Lactate Dehydrogenase C-Reactive Protein Total Protein Albumin Arterial Blood Glucose Coronavirus (PCR) 07/21/21 07/21/21 07/21/21 07:52 11:05 17:01 WBC MCV MCH MCHC RDW Lymph % (Auto) Foster % (Auto) Eos % (Auto) Lymph # (Auto) Foster # (Auto) Eos # (Auto) Baso # (Auto) Seg Neutrophils % Seg Neuts % (Manual) Lymphocytes % (Manual) Seg Neutrophils # Seg Neutrophils # Man Lymphocytes # (Manual) D-Dimer ABG pH POC ABG pCO2 POC ABG pO2 ABG pO2 ABG HCO3 ABG O2 Saturation ABG Base Excess ABG Oxyhemoglobin ABG Sodium ABG Chloride ABG Glucose Oxyhemoglobin Carboxyhemoglobin Sodium Potassium Chloride Carbon Dioxide BUN Creatinine Glucose POC Glucose 116 H 207 H 133 H Hemoglobin A1c Magnesium Ferritin AST ALT Alkaline Phosphatase Lactate Dehydrogenase C-Reactive Protein Total Protein Albumin Arterial Blood Glucose Coronavirus (PCR) 07/21/21 07/22/21 07/22/21 21:17 07:55 07:55 WBC MCV MCH MCHC RDW 16.5 H Lymph % (Auto) Foster % (Auto) 8.6 H Eos % (Auto) Lymph # (Auto) Foster # (Auto) Eos # (Auto) Baso # (Auto) Seg Neutrophils % 72.3 H Seg Neuts % (Manual) Lymphocytes % (Manual) Seg Neutrophils # Seg Neutrophils # Man Lymphocytes # (Manual) D-Dimer ABG pH POC ABG pCO2 POC ABG pO2 ABG pO2 ABG HCO3 ABG O2 Saturation ABG Base Excess ABG Oxyhemoglobin ABG Sodium ABG Chloride ABG Glucose Oxyhemoglobin Carboxyhemoglobin Sodium Potassium Chloride 94.6 L Carbon Dioxide 42 H* D BUN 5 L Creatinine < 0.2 L Glucose POC Glucose 152 H Hemoglobin A1c Magnesium Ferritin AST ALT Alkaline Phosphatase Lactate Dehydrogenase C-Reactive Protein Total Protein Albumin Arterial Blood Glucose Coronavirus (PCR) 07/22/21 07/22/21 07/22/21 11:25 12:05 15:40 WBC MCV MCH MCHC RDW Lymph % (Auto) Foster % (Auto) Eos % (Auto) Lymph # (Auto) Foster # (Auto) Eos # (Auto) Baso # (Auto) Seg Neutrophils % Seg Neuts % (Manual) Lymphocytes % (Manual) Seg Neutrophils # Seg Neutrophils # Man Lymphocytes # (Manual) D-Dimer ABG pH 7.338 L POC ABG pCO2 POC ABG pO2 ABG pO2 66.1 L ABG HCO3 45.0 H ABG O2 Saturation 94.2 L ABG Base Excess 15.2 H ABG Oxyhemoglobin ABG Sodium ABG Chloride ABG Glucose Oxyhemoglobin 91.9 L Carboxyhemoglobin Sodium Potassium Chloride Carbon Dioxide BUN Creatinine Glucose POC Glucose 146 H 219 H Hemoglobin A1c Magnesium Ferritin AST ALT Alkaline Phosphatase Lactate Dehydrogenase C-Reactive Protein Total Protein Albumin Arterial Blood Glucose Coronavirus (PCR) 07/22/21 07/23/21 07/23/21 21:26 04:35 04:35 WBC MCV 98 H MCH MCHC RDW 16.2 H Lymph % (Auto) 7.9 L Foster % (Auto) Eos % (Auto) Lymph # (Auto) 0.9 L Foster # (Auto) Eos # (Auto) Baso # (Auto) Seg Neutrophils % 85.3 H Seg Neuts % (Manual) Lymphocytes % (Manual) Seg Neutrophils # 9.2 H Seg Neutrophils # Man Lymphocytes # (Manual) D-Dimer ABG pH POC ABG pCO2 POC ABG pO2 ABG pO2 ABG HCO3 ABG O2 Saturation ABG Base Excess ABG Oxyhemoglobin ABG Sodium ABG Chloride ABG Glucose Oxyhemoglobin Carboxyhemoglobin Sodium Potassium Chloride 93.9 L Carbon Dioxide 44 H* BUN Creatinine < 0.2 L Glucose 149 H POC Glucose 131 H Hemoglobin A1c Magnesium Ferritin AST ALT Alkaline Phosphatase Lactate Dehydrogenase C-Reactive Protein Total Protein Albumin Arterial Blood Glucose Coronavirus (PCR) 07/23/21 07/23/21 07/23/21 07:20 11:34 16:11 WBC MCV MCH MCHC RDW Lymph % (Auto) Foster % (Auto) Eos % (Auto) Lymph # (Auto) Foster # (Auto) Eos # (Auto) Baso # (Auto) Seg Neutrophils % Seg Neuts % (Manual) Lymphocytes % (Manual) Seg Neutrophils # Seg Neutrophils # Man Lymphocytes # (Manual) D-Dimer ABG pH POC ABG pCO2 POC ABG pO2 ABG pO2 ABG HCO3 ABG O2 Saturation ABG Base Excess ABG Oxyhemoglobin ABG Sodium ABG Chloride ABG Glucose Oxyhemoglobin Carboxyhemoglobin Sodium Potassium Chloride Carbon Dioxide BUN Creatinine Glucose POC Glucose 116 H 172 H 110 H Hemoglobin A1c Magnesium Ferritin AST ALT Alkaline Phosphatase Lactate Dehydrogenase C-Reactive Protein Total Protein Albumin Arterial Blood Glucose Coronavirus (PCR) 07/23/21 07/23/21 07/24/21 18:11 21:33 04:10 WBC MCV MCH MCHC RDW Lymph % (Auto) Foster % (Auto) Eos % (Auto) Lymph # (Auto) Foster # (Auto) Eos # (Auto) Baso # (Auto) Seg Neutrophils % Seg Neuts % (Manual) Lymphocytes % (Manual) Seg Neutrophils # Seg Neutrophils # Man Lymphocytes # (Manual) D-Dimer ABG pH POC ABG pCO2 78.3 H POC ABG pO2 80.7 L ABG pO2 ABG HCO3 ABG O2 Saturation ABG Base Excess ABG Oxyhemoglobin ABG Sodium 134.9 L ABG Chloride 89.0 L ABG Glucose 200 H Oxyhemoglobin Carboxyhemoglobin Sodium Potassium 3.5 L D Chloride 92.4 L Carbon Dioxide 42 H* BUN Creatinine < 0.2 L Glucose 123 H POC Glucose 108 H Hemoglobin A1c Magnesium Ferritin AST ALT Alkaline Phosphatase Lactate Dehydrogenase C-Reactive Protein Total Protein Albumin Arterial Blood Glucose 200 H Coronavirus (PCR) 07/24/21 07/24/21 07/24/21 11:01 16:56 22:06 WBC MCV MCH MCHC RDW Lymph % (Auto) Foster % (Auto) Eos % (Auto) Lymph # (Auto) Foster # (Auto) Eos # (Auto) Baso # (Auto) Seg Neutrophils % Seg Neuts % (Manual) Lymphocytes % (Manual) Seg Neutrophils # Seg Neutrophils # Man Lymphocytes # (Manual) D-Dimer ABG pH POC ABG pCO2 POC ABG pO2 ABG pO2 ABG HCO3 ABG O2 Saturation ABG Base Excess ABG Oxyhemoglobin ABG Sodium ABG Chloride ABG Glucose Oxyhemoglobin Carboxyhemoglobin Sodium Potassium Chloride Carbon Dioxide BUN Creatinine Glucose POC Glucose 171 H 111 H 136 H Hemoglobin A1c Magnesium Ferritin AST ALT Alkaline Phosphatase Lactate Dehydrogenase C-Reactive Protein Total Protein Albumin Arterial Blood Glucose Coronavirus (PCR) 07/25/21 07/25/21 07/25/21 07:40 10:59 11:58 WBC MCV MCH MCHC RDW Lymph % (Auto) Foster % (Auto) Eos % (Auto) Lymph # (Auto) Foster # (Auto) Eos # (Auto) Baso # (Auto) Seg Neutrophils % Seg Neuts % (Manual) Lymphocytes % (Manual) Seg Neutrophils # Seg Neutrophils # Man Lymphocytes # (Manual) D-Dimer ABG pH POC ABG pCO2 POC ABG pO2 ABG pO2 ABG HCO3 ABG O2 Saturation ABG Base Excess ABG Oxyhemoglobin ABG Sodium ABG Chloride ABG Glucose Oxyhemoglobin Carboxyhemoglobin Sodium Potassium Chloride 88.6 L Carbon Dioxide 43 H* BUN Creatinine 0.2 L Glucose 180 H POC Glucose 120 H 153 H Hemoglobin A1c Magnesium Ferritin AST ALT Alkaline Phosphatase Lactate Dehydrogenase C-Reactive Protein Total Protein Albumin Arterial Blood Glucose Coronavirus (PCR) 07/25/21 07/25/21 07/26/21 16:03 20:18 09:56 WBC MCV MCH MCHC RDW Lymph % (Auto) Foster % (Auto) Eos % (Auto) Lymph # (Auto) Foster # (Auto) Eos # (Auto) Baso # (Auto) Seg Neutrophils % Seg Neuts % (Manual) Lymphocytes % (Manual) Seg Neutrophils # Seg Neutrophils # Man Lymphocytes # (Manual) D-Dimer ABG pH POC ABG pCO2 POC ABG pO2 ABG pO2 ABG HCO3 ABG O2 Saturation ABG Base Excess ABG Oxyhemoglobin ABG Sodium ABG Chloride ABG Glucose Oxyhemoglobin Carboxyhemoglobin Sodium Potassium Chloride 91.3 L Carbon Dioxide 45 H* BUN Creatinine < 0.2 L Glucose 128 H POC Glucose 143 H 133 H Hemoglobin A1c Magnesium Ferritin AST ALT Alkaline Phosphatase Lactate Dehydrogenase C-Reactive Protein Total Protein Albumin 3.2 L Arterial Blood Glucose Coronavirus (PCR) 07/26/21 07/26/21 07/27/21 17:56 21:24 07:10 WBC MCV MCH MCHC RDW Lymph % (Auto) Foster % (Auto) Eos % (Auto) Lymph # (Auto) Foster # (Auto) Eos # (Auto) Baso # (Auto) Seg Neutrophils % Seg Neuts % (Manual) Lymphocytes % (Manual) Seg Neutrophils # Seg Neutrophils # Man Lymphocytes # (Manual) D-Dimer ABG pH POC ABG pCO2 POC ABG pO2 ABG pO2 ABG HCO3 ABG O2 Saturation ABG Base Excess ABG Oxyhemoglobin ABG Sodium ABG Chloride ABG Glucose Oxyhemoglobin Carboxyhemoglobin Sodium Potassium Chloride Carbon Dioxide BUN Creatinine Glucose POC Glucose 170 H 122 H 119 H Hemoglobin A1c Magnesium Ferritin AST ALT Alkaline Phosphatase Lactate Dehydrogenase C-Reactive Protein Total Protein Albumin Arterial Blood Glucose Coronavirus (PCR) 07/27/21 07/27/21 07/28/21 11:44 21:31 07:30 WBC MCV MCH MCHC RDW Lymph % (Auto) Foster % (Auto) Eos % (Auto) Lymph # (Auto) Foster # (Auto) Eos # (Auto) Baso # (Auto) Seg Neutrophils % Seg Neuts % (Manual) Lymphocytes % (Manual) Seg Neutrophils # Seg Neutrophils # Man Lymphocytes # (Manual) D-Dimer ABG pH POC ABG pCO2 POC ABG pO2 ABG pO2 ABG HCO3 ABG O2 Saturation ABG Base Excess ABG Oxyhemoglobin ABG Sodium ABG Chloride ABG Glucose Oxyhemoglobin Carboxyhemoglobin Sodium Potassium 3.4 L D Chloride 91.4 L Carbon Dioxide 39 H BUN Creatinine < 0.2 L Glucose 140 H POC Glucose 176 H 162 H Hemoglobin A1c Magnesium Ferritin AST ALT Alkaline Phosphatase Lactate Dehydrogenase C-Reactive Protein Total Protein Albumin Arterial Blood Glucose Coronavirus (PCR) 07/28/21 07/28/21 07/28/21 08:43 12:25 16:40 WBC MCV MCH MCHC RDW Lymph % (Auto) Foster % (Auto) Eos % (Auto) Lymph # (Auto) Foster # (Auto) Eos # (Auto) Baso # (Auto) Seg Neutrophils % Seg Neuts % (Manual) Lymphocytes % (Manual) Seg Neutrophils # Seg Neutrophils # Man Lymphocytes # (Manual) D-Dimer ABG pH POC ABG pCO2 POC ABG pO2 ABG pO2 ABG HCO3 ABG O2 Saturation ABG Base Excess ABG Oxyhemoglobin ABG Sodium ABG Chloride ABG Glucose Oxyhemoglobin Carboxyhemoglobin Sodium Potassium Chloride Carbon Dioxide BUN Creatinine Glucose POC Glucose 122 H 162 H 234 H Hemoglobin A1c Magnesium Ferritin AST ALT Alkaline Phosphatase Lactate Dehydrogenase C-Reactive Protein Total Protein Albumin Arterial Blood Glucose Coronavirus (PCR) 07/28/21 07/29/21 07/29/21 21:27 04:40 09:51 WBC MCV MCH MCHC RDW Lymph % (Auto) Foster % (Auto) Eos % (Auto) Lymph # (Auto) Foster # (Auto) Eos # (Auto) Baso # (Auto) Seg Neutrophils % Seg Neuts % (Manual) Lymphocytes % (Manual) Seg Neutrophils # Seg Neutrophils # Man Lymphocytes # (Manual) D-Dimer ABG pH POC ABG pCO2 POC ABG pO2 ABG pO2 ABG HCO3 ABG O2 Saturation ABG Base Excess ABG Oxyhemoglobin ABG Sodium ABG Chloride ABG Glucose Oxyhemoglobin Carboxyhemoglobin Sodium Potassium 3.4 L Chloride 92.3 L Carbon Dioxide 40 H BUN Creatinine < 0.2 L Glucose 125 H POC Glucose 155 H 112 H Hemoglobin A1c Magnesium Ferritin AST ALT Alkaline Phosphatase Lactate Dehydrogenase C-Reactive Protein Total Protein Albumin Arterial Blood Glucose Coronavirus (PCR) 07/29/21 07/29/21 07/29/21 12:03 16:39 21:28 WBC MCV MCH MCHC RDW Lymph % (Auto) Foster % (Auto) Eos % (Auto) Lymph # (Auto) Foster # (Auto) Eos # (Auto) Baso # (Auto) Seg Neutrophils % Seg Neuts % (Manual) Lymphocytes % (Manual) Seg Neutrophils # Seg Neutrophils # Man Lymphocytes # (Manual) D-Dimer ABG pH POC ABG pCO2 POC ABG pO2 ABG pO2 ABG HCO3 ABG O2 Saturation ABG Base Excess ABG Oxyhemoglobin ABG Sodium ABG Chloride ABG Glucose Oxyhemoglobin Carboxyhemoglobin Sodium Potassium Chloride Carbon Dioxide BUN Creatinine Glucose POC Glucose 188 H 141 H 130 H Hemoglobin A1c Magnesium Ferritin AST ALT Alkaline Phosphatase Lactate Dehydrogenase C-Reactive Protein Total Protein Albumin Arterial Blood Glucose Coronavirus (PCR) 07/30/21 07/30/21 07/30/21 08:37 11:56 22:25 WBC MCV MCH MCHC RDW Lymph % (Auto) Foster % (Auto) Eos % (Auto) Lymph # (Auto) Foster # (Auto) Eos # (Auto) Baso # (Auto) Seg Neutrophils % Seg Neuts % (Manual) Lymphocytes % (Manual) Seg Neutrophils # Seg Neutrophils # Man Lymphocytes # (Manual) D-Dimer ABG pH POC ABG pCO2 POC ABG pO2 ABG pO2 ABG HCO3 ABG O2 Saturation ABG Base Excess ABG Oxyhemoglobin ABG Sodium ABG Chloride ABG Glucose Oxyhemoglobin Carboxyhemoglobin Sodium Potassium Chloride Carbon Dioxide BUN Creatinine Glucose POC Glucose 133 H 156 H 118 H Hemoglobin A1c Magnesium Ferritin AST ALT Alkaline Phosphatase Lactate Dehydrogenase C-Reactive Protein Total Protein Albumin Arterial Blood Glucose Coronavirus (PCR) 07/31/21 07/31/21 07/31/21 06:43 11:55 16:39 WBC MCV MCH MCHC RDW Lymph % (Auto) Foster % (Auto) Eos % (Auto) Lymph # (Auto) Foster # (Auto) Eos # (Auto) Baso # (Auto) Seg Neutrophils % Seg Neuts % (Manual) Lymphocytes % (Manual) Seg Neutrophils # Seg Neutrophils # Man Lymphocytes # (Manual) D-Dimer ABG pH POC ABG pCO2 POC ABG pO2 ABG pO2 ABG HCO3 ABG O2 Saturation ABG Base Excess ABG Oxyhemoglobin ABG Sodium ABG Chloride ABG Glucose Oxyhemoglobin Carboxyhemoglobin Sodium Potassium Chloride Carbon Dioxide BUN Creatinine Glucose POC Glucose 115 H 114 H 185 H Hemoglobin A1c Magnesium Ferritin AST ALT Alkaline Phosphatase Lactate Dehydrogenase C-Reactive Protein Total Protein Albumin Arterial Blood Glucose Coronavirus (PCR) 07/31/21 08/01/21 08/01/21 23:22 11:35 15:34 WBC MCV MCH MCHC RDW Lymph % (Auto) Foster % (Auto) Eos % (Auto) Lymph # (Auto) Foster # (Auto) Eos # (Auto) Baso # (Auto) Seg Neutrophils % Seg Neuts % (Manual) Lymphocytes % (Manual) Seg Neutrophils # Seg Neutrophils # Man Lymphocytes # (Manual) D-Dimer ABG pH POC ABG pCO2 POC ABG pO2 ABG pO2 ABG HCO3 ABG O2 Saturation ABG Base Excess ABG Oxyhemoglobin ABG Sodium ABG Chloride ABG Glucose Oxyhemoglobin Carboxyhemoglobin Sodium Potassium Chloride Carbon Dioxide BUN Creatinine Glucose POC Glucose 213 H 122 H 142 H Hemoglobin A1c Magnesium Ferritin AST ALT Alkaline Phosphatase Lactate Dehydrogenase C-Reactive Protein Total Protein Albumin Arterial Blood Glucose Coronavirus (PCR) 08/01/21 08/02/21 08/02/21 22:15 07:41 11:58 WBC MCV MCH MCHC RDW Lymph % (Auto) Foster % (Auto) Eos % (Auto) Lymph # (Auto) Foster # (Auto) Eos # (Auto) Baso # (Auto) Seg Neutrophils % Seg Neuts % (Manual) Lymphocytes % (Manual) Seg Neutrophils # Seg Neutrophils # Man Lymphocytes # (Manual) D-Dimer ABG pH POC ABG pCO2 POC ABG pO2 ABG pO2 ABG HCO3 ABG O2 Saturation ABG Base Excess ABG Oxyhemoglobin ABG Sodium ABG Chloride ABG Glucose Oxyhemoglobin Carboxyhemoglobin Sodium Potassium Chloride Carbon Dioxide BUN Creatinine Glucose POC Glucose 121 H 109 H 136 H Hemoglobin A1c Magnesium Ferritin AST ALT Alkaline Phosphatase Lactate Dehydrogenase C-Reactive Protein Total Protein Albumin Arterial Blood Glucose Coronavirus (PCR) 08/02/21 08/03/21 08/03/21 21:19 07:47 11:18 WBC MCV MCH MCHC RDW Lymph % (Auto) Foster % (Auto) Eos % (Auto) Lymph # (Auto) Foster # (Auto) Eos # (Auto) Baso # (Auto) Seg Neutrophils % Seg Neuts % (Manual) Lymphocytes % (Manual) Seg Neutrophils # Seg Neutrophils # Man Lymphocytes # (Manual) D-Dimer ABG pH POC ABG pCO2 POC ABG pO2 ABG pO2 ABG HCO3 ABG O2 Saturation ABG Base Excess ABG Oxyhemoglobin ABG Sodium ABG Chloride ABG Glucose Oxyhemoglobin Carboxyhemoglobin Sodium Potassium Chloride Carbon Dioxide BUN Creatinine Glucose POC Glucose 159 H 111 H 202 H Hemoglobin A1c Magnesium Ferritin AST ALT Alkaline Phosphatase Lactate Dehydrogenase C-Reactive Protein Total Protein Albumin Arterial Blood Glucose Coronavirus (PCR) 08/03/21 08/03/21 08/04/21 16:47 21:26 07:57 WBC MCV MCH MCHC RDW Lymph % (Auto) Foster % (Auto) Eos % (Auto) Lymph # (Auto) Foster # (Auto) Eos # (Auto) Baso # (Auto) Seg Neutrophils % Seg Neuts % (Manual) Lymphocytes % (Manual) Seg Neutrophils # Seg Neutrophils # Man Lymphocytes # (Manual) D-Dimer ABG pH POC ABG pCO2 POC ABG pO2 ABG pO2 ABG HCO3 ABG O2 Saturation ABG Base Excess ABG Oxyhemoglobin ABG Sodium ABG Chloride ABG Glucose Oxyhemoglobin Carboxyhemoglobin Sodium Potassium Chloride Carbon Dioxide BUN Creatinine Glucose POC Glucose 133 H 148 H 129 H Hemoglobin A1c Magnesium Ferritin AST ALT Alkaline Phosphatase Lactate Dehydrogenase C-Reactive Protein Total Protein Albumin Arterial Blood Glucose Coronavirus (PCR) 08/04/21 08/04/21 08/04/21 08:05 11:42 16:53 WBC MCV MCH MCHC RDW Lymph % (Auto) Foster % (Auto) Eos % (Auto) Lymph # (Auto) Foster # (Auto) Eos # (Auto) Baso # (Auto) Seg Neutrophils % Seg Neuts % (Manual) Lymphocytes % (Manual) Seg Neutrophils # Seg Neutrophils # Man Lymphocytes # (Manual) D-Dimer ABG pH POC ABG pCO2 POC ABG pO2 ABG pO2 ABG HCO3 ABG O2 Saturation ABG Base Excess ABG Oxyhemoglobin ABG Sodium ABG Chloride ABG Glucose Oxyhemoglobin Carboxyhemoglobin Sodium Potassium Chloride Carbon Dioxide BUN Creatinine Glucose POC Glucose 145 H 187 H 112 H Hemoglobin A1c Magnesium Ferritin AST ALT Alkaline Phosphatase Lactate Dehydrogenase C-Reactive Protein Total Protein Albumin Arterial Blood Glucose Coronavirus (PCR) 08/04/21 08/05/21 08/05/21 21:27 07:35 11:19 WBC MCV MCH MCHC RDW Lymph % (Auto) Foster % (Auto) Eos % (Auto) Lymph # (Auto) Foster # (Auto) Eos # (Auto) Baso # (Auto) Seg Neutrophils % Seg Neuts % (Manual) Lymphocytes % (Manual) Seg Neutrophils # Seg Neutrophils # Man Lymphocytes # (Manual) D-Dimer ABG pH POC ABG pCO2 POC ABG pO2 ABG pO2 ABG HCO3 ABG O2 Saturation ABG Base Excess ABG Oxyhemoglobin ABG Sodium ABG Chloride ABG Glucose Oxyhemoglobin Carboxyhemoglobin Sodium Potassium Chloride Carbon Dioxide BUN Creatinine Glucose POC Glucose 189 H 146 H 244 H Hemoglobin A1c Magnesium Ferritin AST ALT Alkaline Phosphatase Lactate Dehydrogenase C-Reactive Protein Total Protein Albumin Arterial Blood Glucose Coronavirus (PCR) 08/05/21 08/06/21 08/06/21 22:16 07:29 11:16 WBC MCV MCH MCHC RDW Lymph % (Auto) Foster % (Auto) Eos % (Auto) Lymph # (Auto) Foster # (Auto) Eos # (Auto) Baso # (Auto) Seg Neutrophils % Seg Neuts % (Manual) Lymphocytes % (Manual) Seg Neutrophils # Seg Neutrophils # Man Lymphocytes # (Manual) D-Dimer ABG pH POC ABG pCO2 POC ABG pO2 ABG pO2 ABG HCO3 ABG O2 Saturation ABG Base Excess ABG Oxyhemoglobin ABG Sodium ABG Chloride ABG Glucose Oxyhemoglobin Carboxyhemoglobin Sodium Potassium Chloride Carbon Dioxide BUN Creatinine Glucose POC Glucose 122 H 128 H 228 H Hemoglobin A1c Magnesium Ferritin AST ALT Alkaline Phosphatase Lactate Dehydrogenase C-Reactive Protein Total Protein Albumin Arterial Blood Glucose Coronavirus (PCR) 08/06/21 08/07/21 08/07/21 21:13 07:17 11:54 WBC MCV MCH MCHC RDW Lymph % (Auto) Foster % (Auto) Eos % (Auto) Lymph # (Auto) Foster # (Auto) Eos # (Auto) Baso # (Auto) Seg Neutrophils % Seg Neuts % (Manual) Lymphocytes % (Manual) Seg Neutrophils # Seg Neutrophils # Man Lymphocytes # (Manual) D-Dimer ABG pH POC ABG pCO2 POC ABG pO2 ABG pO2 ABG HCO3 ABG O2 Saturation ABG Base Excess ABG Oxyhemoglobin ABG Sodium ABG Chloride ABG Glucose Oxyhemoglobin Carboxyhemoglobin Sodium Potassium Chloride Carbon Dioxide BUN Creatinine Glucose POC Glucose 198 H 134 H 107 H Hemoglobin A1c Magnesium Ferritin AST ALT Alkaline Phosphatase Lactate Dehydrogenase C-Reactive Protein Total Protein Albumin Arterial Blood Glucose Coronavirus (PCR) 08/07/21 08/07/21 08/08/21 16:26 21:15 04:51 WBC MCV MCH MCHC RDW Lymph % (Auto) Foster % (Auto) Eos % (Auto) Lymph # (Auto) Foster # (Auto) Eos # (Auto) Baso # (Auto) Seg Neutrophils % Seg Neuts % (Manual) Lymphocytes % (Manual) Seg Neutrophils # Seg Neutrophils # Man Lymphocytes # (Manual) D-Dimer ABG pH POC ABG pCO2 POC ABG pO2 ABG pO2 ABG HCO3 ABG O2 Saturation ABG Base Excess ABG Oxyhemoglobin ABG Sodium ABG Chloride ABG Glucose Oxyhemoglobin Carboxyhemoglobin Sodium Potassium Chloride 92.9 L Carbon Dioxide 39 H BUN Creatinine < 0.2 L Glucose 105 H POC Glucose 144 H 228 H Hemoglobin A1c Magnesium Ferritin AST ALT Alkaline Phosphatase Lactate Dehydrogenase C-Reactive Protein Total Protein Albumin Arterial Blood Glucose Coronavirus (PCR) 08/08/21 08/08/21 08/08/21 11:40 17:09 21:22 WBC MCV MCH MCHC RDW Lymph % (Auto) Foster % (Auto) Eos % (Auto) Lymph # (Auto) Foster # (Auto) Eos # (Auto) Baso # (Auto) Seg Neutrophils % Seg Neuts % (Manual) Lymphocytes % (Manual) Seg Neutrophils # Seg Neutrophils # Man Lymphocytes # (Manual) D-Dimer ABG pH POC ABG pCO2 POC ABG pO2 ABG pO2 ABG HCO3 ABG O2 Saturation ABG Base Excess ABG Oxyhemoglobin ABG Sodium ABG Chloride ABG Glucose Oxyhemoglobin Carboxyhemoglobin Sodium Potassium Chloride Carbon Dioxide BUN Creatinine Glucose POC Glucose 137 H 137 H 152 H Hemoglobin A1c Magnesium Ferritin AST ALT Alkaline Phosphatase Lactate Dehydrogenase C-Reactive Protein Total Protein Albumin Arterial Blood Glucose Coronavirus (PCR) 08/09/21 08/09/21 08/09/21 07:42 12:26 16:41 WBC MCV MCH MCHC RDW Lymph % (Auto) Foster % (Auto) Eos % (Auto) Lymph # (Auto) Foster # (Auto) Eos # (Auto) Baso # (Auto) Seg Neutrophils % Seg Neuts % (Manual) Lymphocytes % (Manual) Seg Neutrophils # Seg Neutrophils # Man Lymphocytes # (Manual) D-Dimer ABG pH POC ABG pCO2 POC ABG pO2 ABG pO2 ABG HCO3 ABG O2 Saturation ABG Base Excess ABG Oxyhemoglobin ABG Sodium ABG Chloride ABG Glucose Oxyhemoglobin Carboxyhemoglobin Sodium Potassium Chloride Carbon Dioxide BUN Creatinine Glucose POC Glucose 120 H 132 H 116 H Hemoglobin A1c Magnesium Ferritin AST ALT Alkaline Phosphatase Lactate Dehydrogenase C-Reactive Protein Total Protein Albumin Arterial Blood Glucose Coronavirus (PCR) 08/09/21 08/10/21 08/10/21 21:13 07:41 11:33 WBC MCV MCH MCHC RDW Lymph % (Auto) Foster % (Auto) Eos % (Auto) Lymph # (Auto) Foster # (Auto) Eos # (Auto) Baso # (Auto) Seg Neutrophils % Seg Neuts % (Manual) Lymphocytes % (Manual) Seg Neutrophils # Seg Neutrophils # Man Lymphocytes # (Manual) D-Dimer ABG pH POC ABG pCO2 POC ABG pO2 ABG pO2 ABG HCO3 ABG O2 Saturation ABG Base Excess ABG Oxyhemoglobin ABG Sodium ABG Chloride ABG Glucose Oxyhemoglobin Carboxyhemoglobin Sodium Potassium Chloride Carbon Dioxide BUN Creatinine Glucose POC Glucose 205 H 125 H 125 H Hemoglobin A1c Magnesium Ferritin AST ALT Alkaline Phosphatase Lactate Dehydrogenase C-Reactive Protein Total Protein Albumin Arterial Blood Glucose Coronavirus (PCR) 08/10/21 08/10/21 08/11/21 15:21 21:07 07:22 WBC MCV MCH MCHC RDW Lymph % (Auto) Foster % (Auto) Eos % (Auto) Lymph # (Auto) Foster # (Auto) Eos # (Auto) Baso # (Auto) Seg Neutrophils % Seg Neuts % (Manual) Lymphocytes % (Manual) Seg Neutrophils # Seg Neutrophils # Man Lymphocytes # (Manual) D-Dimer ABG pH POC ABG pCO2 POC ABG pO2 ABG pO2 ABG HCO3 ABG O2 Saturation ABG Base Excess ABG Oxyhemoglobin ABG Sodium ABG Chloride ABG Glucose Oxyhemoglobin Carboxyhemoglobin Sodium Potassium Chloride Carbon Dioxide BUN Creatinine Glucose POC Glucose 188 H 177 H 123 H Hemoglobin A1c Magnesium Ferritin AST ALT Alkaline Phosphatase Lactate Dehydrogenase C-Reactive Protein Total Protein Albumin Arterial Blood Glucose Coronavirus (PCR) 08/11/21 08/11/21 08/11/21 11:42 15:43 21:34 WBC MCV MCH MCHC RDW Lymph % (Auto) Foster % (Auto) Eos % (Auto) Lymph # (Auto) Foster # (Auto) Eos # (Auto) Baso # (Auto) Seg Neutrophils % Seg Neuts % (Manual) Lymphocytes % (Manual) Seg Neutrophils # Seg Neutrophils # Man Lymphocytes # (Manual) D-Dimer ABG pH POC ABG pCO2 POC ABG pO2 ABG pO2 ABG HCO3 ABG O2 Saturation ABG Base Excess ABG Oxyhemoglobin ABG Sodium ABG Chloride ABG Glucose Oxyhemoglobin Carboxyhemoglobin Sodium Potassium Chloride Carbon Dioxide BUN Creatinine Glucose POC Glucose 182 H 182 H 112 H Hemoglobin A1c Magnesium Ferritin AST ALT Alkaline Phosphatase Lactate Dehydrogenase C-Reactive Protein Total Protein Albumin Arterial Blood Glucose Coronavirus (PCR) 08/12/21 08/12/21 08/12/21 07:49 12:03 17:06 WBC MCV MCH MCHC RDW Lymph % (Auto) Foster % (Auto) Eos % (Auto) Lymph # (Auto) Foster # (Auto) Eos # (Auto) Baso # (Auto) Seg Neutrophils % Seg Neuts % (Manual) Lymphocytes % (Manual) Seg Neutrophils # Seg Neutrophils # Man Lymphocytes # (Manual) D-Dimer ABG pH POC ABG pCO2 POC ABG pO2 ABG pO2 ABG HCO3 ABG O2 Saturation ABG Base Excess ABG Oxyhemoglobin ABG Sodium ABG Chloride ABG Glucose Oxyhemoglobin Carboxyhemoglobin Sodium Potassium Chloride Carbon Dioxide BUN Creatinine Glucose POC Glucose 151 H 154 H 106 H Hemoglobin A1c Magnesium Ferritin AST ALT Alkaline Phosphatase Lactate Dehydrogenase C-Reactive Protein Total Protein Albumin Arterial Blood Glucose Coronavirus (PCR) 08/12/21 08/13/21 08/13/21 21:50 07:31 11:27 WBC MCV MCH MCHC RDW Lymph % (Auto) Foster % (Auto) Eos % (Auto) Lymph # (Auto) Foster # (Auto) Eos # (Auto) Baso # (Auto) Seg Neutrophils % Seg Neuts % (Manual) Lymphocytes % (Manual) Seg Neutrophils # Seg Neutrophils # Man Lymphocytes # (Manual) D-Dimer ABG pH POC ABG pCO2 POC ABG pO2 ABG pO2 ABG HCO3 ABG O2 Saturation ABG Base Excess ABG Oxyhemoglobin ABG Sodium ABG Chloride ABG Glucose Oxyhemoglobin Carboxyhemoglobin Sodium Potassium Chloride Carbon Dioxide BUN Creatinine Glucose POC Glucose 160 H 118 H 177 H Hemoglobin A1c Magnesium Ferritin AST ALT Alkaline Phosphatase Lactate Dehydrogenase C-Reactive Protein Total Protein Albumin Arterial Blood Glucose Coronavirus (PCR) 08/13/21 08/13/21 08/14/21 16:21 20:59 07:16 WBC MCV MCH MCHC RDW Lymph % (Auto) Foster % (Auto) Eos % (Auto) Lymph # (Auto) Foster # (Auto) Eos # (Auto) Baso # (Auto) Seg Neutrophils % Seg Neuts % (Manual) Lymphocytes % (Manual) Seg Neutrophils # Seg Neutrophils # Man Lymphocytes # (Manual) D-Dimer ABG pH POC ABG pCO2 POC ABG pO2 ABG pO2 ABG HCO3 ABG O2 Saturation ABG Base Excess ABG Oxyhemoglobin ABG Sodium ABG Chloride ABG Glucose Oxyhemoglobin Carboxyhemoglobin Sodium Potassium Chloride Carbon Dioxide BUN Creatinine Glucose POC Glucose 116 H 140 H 109 H Hemoglobin A1c Magnesium Ferritin AST ALT Alkaline Phosphatase Lactate Dehydrogenase C-Reactive Protein Total Protein Albumin Arterial Blood Glucose Coronavirus (PCR) 08/14/21 08/14/21 08/14/21 11:13 16:30 21:11 WBC MCV MCH MCHC RDW Lymph % (Auto) Foster % (Auto) Eos % (Auto) Lymph # (Auto) Foster # (Auto) Eos # (Auto) Baso # (Auto) Seg Neutrophils % Seg Neuts % (Manual) Lymphocytes % (Manual) Seg Neutrophils # Seg Neutrophils # Man Lymphocytes # (Manual) D-Dimer ABG pH POC ABG pCO2 POC ABG pO2 ABG pO2 ABG HCO3 ABG O2 Saturation ABG Base Excess ABG Oxyhemoglobin ABG Sodium ABG Chloride ABG Glucose Oxyhemoglobin Carboxyhemoglobin Sodium Potassium Chloride Carbon Dioxide BUN Creatinine Glucose POC Glucose 176 H 117 H 222 H Hemoglobin A1c Magnesium Ferritin AST ALT Alkaline Phosphatase Lactate Dehydrogenase C-Reactive Protein Total Protein Albumin Arterial Blood Glucose Coronavirus (PCR) 08/15/21 08/15/21 08/15/21 07:10 11:11 16:25 WBC MCV MCH MCHC RDW Lymph % (Auto) Foster % (Auto) Eos % (Auto) Lymph # (Auto) Foster # (Auto) Eos # (Auto) Baso # (Auto) Seg Neutrophils % Seg Neuts % (Manual) Lymphocytes % (Manual) Seg Neutrophils # Seg Neutrophils # Man Lymphocytes # (Manual) D-Dimer ABG pH POC ABG pCO2 POC ABG pO2 ABG pO2 ABG HCO3 ABG O2 Saturation ABG Base Excess ABG Oxyhemoglobin ABG Sodium ABG Chloride ABG Glucose Oxyhemoglobin Carboxyhemoglobin Sodium Potassium Chloride Carbon Dioxide BUN Creatinine Glucose POC Glucose 165 H 225 H 157 H Hemoglobin A1c Magnesium Ferritin AST ALT Alkaline Phosphatase Lactate Dehydrogenase C-Reactive Protein Total Protein Albumin Arterial Blood Glucose Coronavirus (PCR) 08/16/21 08/16/21 08/16/21 07:29 11:14 21:03 WBC MCV MCH MCHC RDW Lymph % (Auto) Foster % (Auto) Eos % (Auto) Lymph # (Auto) Foster # (Auto) Eos # (Auto) Baso # (Auto) Seg Neutrophils % Seg Neuts % (Manual) Lymphocytes % (Manual) Seg Neutrophils # Seg Neutrophils # Man Lymphocytes # (Manual) D-Dimer ABG pH POC ABG pCO2 POC ABG pO2 ABG pO2 ABG HCO3 ABG O2 Saturation ABG Base Excess ABG Oxyhemoglobin ABG Sodium ABG Chloride ABG Glucose Oxyhemoglobin Carboxyhemoglobin Sodium Potassium Chloride Carbon Dioxide BUN Creatinine Glucose POC Glucose 177 H 254 H 291 H Hemoglobin A1c Magnesium Ferritin AST ALT Alkaline Phosphatase Lactate Dehydrogenase C-Reactive Protein Total Protein Albumin Arterial Blood Glucose Coronavirus (PCR) 08/17/21 08/17/21 08/17/21 07:50 12:18 17:35 WBC MCV MCH MCHC RDW Lymph % (Auto) Foster % (Auto) Eos % (Auto) Lymph # (Auto) Foster # (Auto) Eos # (Auto) Baso # (Auto) Seg Neutrophils % Seg Neuts % (Manual) Lymphocytes % (Manual) Seg Neutrophils # Seg Neutrophils # Man Lymphocytes # (Manual) D-Dimer ABG pH POC ABG pCO2 POC ABG pO2 ABG pO2 ABG HCO3 ABG O2 Saturation ABG Base Excess ABG Oxyhemoglobin ABG Sodium ABG Chloride ABG Glucose Oxyhemoglobin Carboxyhemoglobin Sodium Potassium Chloride Carbon Dioxide BUN Creatinine Glucose POC Glucose 171 H 236 H 273 H Hemoglobin A1c Magnesium Ferritin AST ALT Alkaline Phosphatase Lactate Dehydrogenase C-Reactive Protein Total Protein Albumin Arterial Blood Glucose Coronavirus (PCR) 08/17/21 08/18/21 08/18/21 21:36 07:27 11:29 WBC MCV MCH MCHC RDW Lymph % (Auto) Foster % (Auto) Eos % (Auto) Lymph # (Auto) Foster # (Auto) Eos # (Auto) Baso # (Auto) Seg Neutrophils % Seg Neuts % (Manual) Lymphocytes % (Manual) Seg Neutrophils # Seg Neutrophils # Man Lymphocytes # (Manual) D-Dimer ABG pH POC ABG pCO2 POC ABG pO2 ABG pO2 ABG HCO3 ABG O2 Saturation ABG Base Excess ABG Oxyhemoglobin ABG Sodium ABG Chloride ABG Glucose Oxyhemoglobin Carboxyhemoglobin Sodium Potassium Chloride Carbon Dioxide BUN Creatinine Glucose POC Glucose 181 H 179 H 210 H Hemoglobin A1c Magnesium Ferritin AST ALT Alkaline Phosphatase Lactate Dehydrogenase C-Reactive Protein Total Protein Albumin Arterial Blood Glucose Coronavirus (PCR) 08/18/21 08/18/21 08/19/21 17:03 21:14 07:17 WBC MCV MCH MCHC RDW Lymph % (Auto) Foster % (Auto) Eos % (Auto) Lymph # (Auto) Foster # (Auto) Eos # (Auto) Baso # (Auto) Seg Neutrophils % Seg Neuts % (Manual) Lymphocytes % (Manual) Seg Neutrophils # Seg Neutrophils # Man Lymphocytes # (Manual) D-Dimer ABG pH POC ABG pCO2 POC ABG pO2 ABG pO2 ABG HCO3 ABG O2 Saturation ABG Base Excess ABG Oxyhemoglobin ABG Sodium ABG Chloride ABG Glucose Oxyhemoglobin Carboxyhemoglobin Sodium Potassium Chloride Carbon Dioxide BUN Creatinine Glucose POC Glucose 255 H 212 H 193 H Hemoglobin A1c Magnesium Ferritin AST ALT Alkaline Phosphatase Lactate Dehydrogenase C-Reactive Protein Total Protein Albumin Arterial Blood Glucose Coronavirus (PCR) 08/19/21 08/19/21 08/19/21 11:23 16:20 21:39 WBC MCV MCH MCHC RDW Lymph % (Auto) Foster % (Auto) Eos % (Auto) Lymph # (Auto) Foster # (Auto) Eos # (Auto) Baso # (Auto) Seg Neutrophils % Seg Neuts % (Manual) Lymphocytes % (Manual) Seg Neutrophils # Seg Neutrophils # Man Lymphocytes # (Manual) D-Dimer ABG pH POC ABG pCO2 POC ABG pO2 ABG pO2 ABG HCO3 ABG O2 Saturation ABG Base Excess ABG Oxyhemoglobin ABG Sodium ABG Chloride ABG Glucose Oxyhemoglobin Carboxyhemoglobin Sodium Potassium Chloride Carbon Dioxide BUN Creatinine Glucose POC Glucose 256 H 173 H 223 H Hemoglobin A1c Magnesium Ferritin AST ALT Alkaline Phosphatase Lactate Dehydrogenase C-Reactive Protein Total Protein Albumin Arterial Blood Glucose Coronavirus (PCR) 08/20/21 08/20/21 08/20/21 07:52 11:18 15:32 WBC MCV MCH MCHC RDW Lymph % (Auto) Foster % (Auto) Eos % (Auto) Lymph # (Auto) Foster # (Auto) Eos # (Auto) Baso # (Auto) Seg Neutrophils % Seg Neuts % (Manual) Lymphocytes % (Manual) Seg Neutrophils # Seg Neutrophils # Man Lymphocytes # (Manual) D-Dimer ABG pH POC ABG pCO2 POC ABG pO2 ABG pO2 ABG HCO3 ABG O2 Saturation ABG Base Excess ABG Oxyhemoglobin ABG Sodium ABG Chloride ABG Glucose Oxyhemoglobin Carboxyhemoglobin Sodium Potassium Chloride Carbon Dioxide BUN Creatinine Glucose POC Glucose 147 H 280 H 243 H Hemoglobin A1c Magnesium Ferritin AST ALT Alkaline Phosphatase Lactate Dehydrogenase C-Reactive Protein Total Protein Albumin Arterial Blood Glucose Coronavirus (PCR) 08/20/21 08/21/21 08/21/21 22:15 08:26 11:58 WBC MCV MCH MCHC RDW Lymph % (Auto) Foster % (Auto) Eos % (Auto) Lymph # (Auto) Foster # (Auto) Eos # (Auto) Baso # (Auto) Seg Neutrophils % Seg Neuts % (Manual) Lymphocytes % (Manual) Seg Neutrophils # Seg Neutrophils # Man Lymphocytes # (Manual) D-Dimer ABG pH POC ABG pCO2 POC ABG pO2 ABG pO2 ABG HCO3 ABG O2 Saturation ABG Base Excess ABG Oxyhemoglobin ABG Sodium ABG Chloride ABG Glucose Oxyhemoglobin Carboxyhemoglobin Sodium Potassium Chloride Carbon Dioxide BUN Creatinine Glucose POC Glucose 215 H 165 H 241 H Hemoglobin A1c Magnesium Ferritin AST ALT Alkaline Phosphatase Lactate Dehydrogenase C-Reactive Protein Total Protein Albumin Arterial Blood Glucose Coronavirus (PCR) 08/21/21 08/21/21 08/22/21 16:56 22:11 07:20 WBC MCV MCH MCHC RDW Lymph % (Auto) Foster % (Auto) Eos % (Auto) Lymph # (Auto) Foster # (Auto) Eos # (Auto) Baso # (Auto) Seg Neutrophils % Seg Neuts % (Manual) Lymphocytes % (Manual) Seg Neutrophils # Seg Neutrophils # Man Lymphocytes # (Manual) D-Dimer ABG pH POC ABG pCO2 POC ABG pO2 ABG pO2 ABG HCO3 ABG O2 Saturation ABG Base Excess ABG Oxyhemoglobin ABG Sodium ABG Chloride ABG Glucose Oxyhemoglobin Carboxyhemoglobin Sodium Potassium Chloride Carbon Dioxide BUN Creatinine Glucose POC Glucose 276 H 207 H 184 H Hemoglobin A1c Magnesium Ferritin AST ALT Alkaline Phosphatase Lactate Dehydrogenase C-Reactive Protein Total Protein Albumin Arterial Blood Glucose Coronavirus (PCR) 08/22/21 08/22/21 08/22/21 11:32 16:11 20:36 WBC MCV MCH MCHC RDW Lymph % (Auto) Foster % (Auto) Eos % (Auto) Lymph # (Auto) Foster # (Auto) Eos # (Auto) Baso # (Auto) Seg Neutrophils % Seg Neuts % (Manual) Lymphocytes % (Manual) Seg Neutrophils # Seg Neutrophils # Man Lymphocytes # (Manual) D-Dimer ABG pH POC ABG pCO2 POC ABG pO2 ABG pO2 ABG HCO3 ABG O2 Saturation ABG Base Excess ABG Oxyhemoglobin ABG Sodium ABG Chloride ABG Glucose Oxyhemoglobin Carboxyhemoglobin Sodium Potassium Chloride Carbon Dioxide BUN Creatinine Glucose POC Glucose 235 H 240 H 207 H Hemoglobin A1c Magnesium Ferritin AST ALT Alkaline Phosphatase Lactate Dehydrogenase C-Reactive Protein Total Protein Albumin Arterial Blood Glucose Coronavirus (PCR) 08/23/21 08/23/21 08:40 12:20 WBC MCV MCH MCHC RDW Lymph % (Auto) Foster % (Auto) Eos % (Auto) Lymph # (Auto) Foster # (Auto) Eos # (Auto) Baso # (Auto) Seg Neutrophils % Seg Neuts % (Manual) Lymphocytes % (Manual) Seg Neutrophils # Seg Neutrophils # Man Lymphocytes # (Manual) D-Dimer ABG pH POC ABG pCO2 POC ABG pO2 ABG pO2 ABG HCO3 ABG O2 Saturation ABG Base Excess ABG Oxyhemoglobin ABG Sodium ABG Chloride ABG Glucose Oxyhemoglobin Carboxyhemoglobin Sodium Potassium Chloride Carbon Dioxide BUN Creatinine Glucose POC Glucose 208 H 259 H Hemoglobin A1c Magnesium Ferritin AST ALT Alkaline Phosphatase Lactate Dehydrogenase C-Reactive Protein Total Protein Albumin Arterial Blood Glucose Coronavirus (PCR)
[2021-08-23] MEDS: ENOXAPARIN 40 MG/0.4 ML INJ SUB-Q SCH (23:01)
[2021-08-23] MEDS: ACETAMINOPHEN 325 MG TAB PO PRN (23:03)
[2021-08-24] MEDS: methylPREDNISolone Sod Succinate 125 MG/2 ML INJ IV SCH ×3 (05:30→23:36)
[2021-08-24] MEDS: INSULIN GLARGINE 100 UNITS/ML SUB-Q SCH (10:02)
[2021-08-24] MEDS: INSULIN LISPRO 100 UNIT/ML SUB-Q SCH ×4 (10:03→22:50)
[2021-08-24] MEDS: CHOLECALCIFEROL (VIT D3) 1000 UNIT (25 mcg) TAB PO SCH (10:03)
[2021-08-24] MEDS: ALPRAZolam 1 MG TAB PO SCH ×2 (10:03→22:35)
--- NOTE | 2021-08-24 11:59 | Progress Note ---
Assessment and Plan Assessment and plan: -Acute hypoxic/hypercapneic respiratory failure --Severe ARDS. Suspected possible post Covid pneumonia lung fibrosis. Continues to require high flow nasal cannula oxygen 30 L/50% FiO2/O2 sats 97% refusing BiPAP, on 100% nonrebreather , Wean as tolerated. Maintain SpO2 >88% Steroids resumed on IV Solu-Medrol on 08/16/2021. Will maintain high-dose IV Solu-Medrol at 125 mg every 8 hours X-ray chest 08/22/2021: Extensive bilateral parenchymal disease unchanged Discussed with pulmonology Dr. Merida --Metabolic alkalosis Continue monitoring --Heart failure with preserved ejection fraction -TTE: LVEF 55-60% with diastolic dysfunction -will continue to monitor for signs of fluid overload. -On intermittent diuretics. --COVID-19 infection -Has completed treatment. --Type 2 diabetes -Uncontrolled most likely due to steroid -Continue Lantus to 20 SQ daily. Continue sliding scale insulin. --Anxiety -Stable -continue xanax --DVT prophylaxis -Lovenox 40 daily --Deconditioning PT OT when stable Possible SNF placement at discharge Resolved issues #Sepsis secondary to COVID-19 #Iatrogenic diarrhea #Hypomagnesemia #Hyponatremia #Protein calorie malnutrition #Dysuria #Hypokalemia #Possible UTI --Advanced care planning -Disease education conducted, care plan discussed, diagnoses discussed, prognosis discussed, and patient acknowledges understanding with care plan -Time: +30 minutes --Disposition Plan: Continue medical management Total Time Spent with Patient (Minutes): 35 minutes Brief history and daily hospital course; Admitted on 04/16/2021 50 YO Female with GERD, Obesity, HLD presents to ED for evaluation. Patient r eports "I cannot breathe". Patient states that she has experienced subjective fever, shortness of breath, malaise, body aches, dry cough, and shortness of breath over the past 1 week with progressively worsening symptoms over the same timeframe. EMS was notified and upon arrival the patient was found to be in distress and subsequent transported to [facility] for further care and evaluation of the aforementioned symptoms. The patient was seen and evaluated in the emergency department. All lab and imaging studies reviewed. Patient found to have a pulse oximetry of 86% with exertion on room air which is consistent with acute hypoxemic respiratory failure. Patient with chest x-ray which revealed bilateral pneumonia. Patient admitted to medical floor and initiated him on pneumonia protocol as well as coronavirus protocol. Patient knowledges fever but denies chills, chest pain, palpitation, skin rash, recent ill contacts, or known exposure to COVID-19. Prior admission on 01/21/2017 reviewed. All medication listed at time of admission has been reconciled. Patient is unvaccinated for coronavirus infection. CXR: Bilateral Pneumonia 04/17: Patient seen and examined, still uncomfortable with Hypoxic respiratory failure and on oxygen, will continue to steroids therapy, start patient on Re mdesivir, ID consulted, Pulmonary consult placed. 04/18: Patient seen and examined, she is currently being changed to High flow NC due to worsening HYPOXIA, will transfer to IMCU, Pulmonary and ID following. Will also give a dose of Lasix today. Monitor Inflammatory markers. 04/19: Patient seen and examined still on high flow due to hypoxia. Appears a bit more comfortable today than yesterday. Cough has decreased in frequency. We will continue high dose Dexameathasone to complete 10 days. continue on Remdesivir 200 mg IV q day x 1 followed by 100 mg IV q day x 4 days -Obtain q48-72h inflammatory markers - ferritin, Ddimer, CRP, LDH Will also give lasix daily for the next 3 days and monitor renal function. Family updated. Continue prone positioning as tolerated 04/20: Patient has some desaturation episodes yesterday was placed on BiPAP. Discussed with ICU team for bed availability for patient to be transferred up. Continue prone position as tolerated. 04/21: Patient remains with profound hypoxia secondary to COVID pneumonia. -Continue steroids -Continue remedesir -S/P Actmera 04/22: Patient remains on steroids and remdesivir. ABG shows persistent hypoxia. We will continue current management additional trial of Lasix for the next few days to see if any improvement. Monitor inflammatory markers as needed. Prognosis is guarded remains on high flow 04/23; patient was treated with remdesivir and Actemra. Continue steroid. Patient's prognosis is guarded. 04/24; patient is on steroid. Patient is currently on BiPAP. Prognosis is guarded. Pulmonary is following. Patient was given Lasix and Ativan. 04/25; continue steroid. Patient was on 40 L of high flow oxygen with saturation was 88%. Pulmonary is following. Prognosis is guarded. Patient was given lasix and ativan. 04/26; patient is on BiPAP and Precedex. Prognosis is guarded. 04/27; patient is on BiPAP and Precedex. Patient will finish steroid today and will start on Solu-Medrol tomorrow. Prognosis is guarded. Blood pressure is better today. Hold Lasix. 04/28 patient is on 100 Fio2 via BIPAP. moderately dyspneic, pulmonary note reviewed, lab results reviewed 04/29 no acute events- see systems review above 04/30 no acute events overnight - on airvo today- TPN started -see systems review above 05-01 no acute events overnight- tolerating airvo- see systems review above 05-02 no acute events overnight; tolerating airvo this AM- see systems review above 05/03: Patient remains on full high flow oxygen. No acute events overnight 05/04: Patient remains on BiPAP this morning at 70%. Returning to service Patient initially managed in the ICU and then transfered to the floor 06/25: Patient remains on full oxygen with high flow, encouraged to prone at night time. Spoke to Night nursing staff to ensure assisting the patient Prone. Continue steroid therapy, will discuss with Pulmonary about trying additional lasix. Plan discussed with patient and family. 06/26: Patient already on Lasix daily, Hypokalemia- Replace K. Continue to encourage Proning. Remains on high flow. 06/27: Continue supportive care unfortunately had to go up on her oxygen to 70% FiO2 prognosis remains guarded continue to encourage proning. 06/28: Continue supportive care, Encourage Proning 06/29: Mild hypokalemia noted yesterday will be replaced as it was not corrected yesterday we will recheck BMP in a.m. Continue IV Lasix. Monitor renal function. 06/30: Give additional potassium for better control. Continue supportive care. Continue IV Lasix. Continue to encourage proning again discussed with the patient via car escort. He verbalized understanding 07/01: Brief summary patient seen and examined this morning continues to show improvement FiO2 demand down to 45% on 30 L on high flow. Patient is a 50-year-old male who was admitted with COVID-19 today is day 76 of her hospital stay she was initially managed in the ICU and now has been transferred to the floor. She remains on low-dose steroid therapy following completion of remdesivir and recommended steroid. She is encouraged to continue to prone and the nights that she has done this has shown some improvement. She is still probably a long way from being discharged. Intermittent monitoring off electrolytes as she has had some episode of hyponatremia and hypomagnesemia is recommended. She is concerned about puffiness in her face which is likely steroid-induced I have discussed this with her that it will improve following discontinuation of steroid. In the meantime I have held her Lasix as we have been diuresing her for majority of her stay and this should be reevaluated the next few days to see if she will benefit from further diuresis. Pulmonary is on board 08/20: Return to service today. Remains on high flow oxygen, not tolerating weaning, continue current management Currently undergoing management and awaiting for possible home hospice 08/21: Patient still on high flow and NRB, still severely Hypoxic. Continue supportive care. Prognosis guarded. 08/22: Patient seen and examined, she still remains on 50% high flow and also nonrebreather. Per staff she is refusing therapy have provided counseling to her that this will help her improve. She is also awaiting for hospice discharge which case management is working on. Chest x-ray reviewed shows persistent interstitial infiltrates bilaterally. 08/23; remains on high flow nasal cannula oxygen 30 L/50% FiO2/O2 sats 97%, patient refusing BiPAP, will continue high-dose IV Solu-Medrol at 125 mg every 8 hours. Discussed with pulmonary critical Dr. Merida 08/24; patient remains on high flow nasal cannula oxygen 26 L, wean as tolerate d, continue rest of the management including high-dose Solu-Medrol 125 mg every 8 hours History Interval history: I seen and examined the patient at the bedside Patient's chart and medications reviewed Patient feels better no new complaints Continues to require high flow nasal cannula oxygen 26 L Hospitalist Physical - Constitutional Vitals: Temp Pulse Resp BP Pulse Ox 99.2 F 98 H 40 H 117/63 95 08/24/21 11:36 08/24/21 11:48 08/24/21 11:44 08/24/21 11:00 08/24/21 11:44 General appearance: Present: mild distress, well-nourished, other (Looks tired) - EENT Eyes: Present: PERRL, EOM intact - Neck Neck: Present: supple, normal ROM - Respiratory Respiratory effort: normal Respiratory: bilateral: diminished, negative: rales, rhonchi, wheezing - Cardiovascular Rhythm: regular Heart Sounds: Present: S1 & S2 - Extremities Extremities: no ischemia, No edema - Abdominal General gastrointestinal: soft, non-tender, non-distended, normal bowel sounds - Integumentary Integumentary: Present: clear, warm - Psychiatric Psychiatric: appropriate mood/affect, cooperative - Neurologic Neurologic: moves all extremities Results - Labs CBC & Chem 7: 07/23/21 04:35 08/08/21 04:51 Labs: Laboratory Last Values WBC 10.8 K/mm3 (4.5-11.0) 07/23/21 04:35 RBC 3.84 M/mm3 (3.65-5.03) 07/23/21 04:35 Hgb 12.1 gm/dl (10.1-14.3) 07/23/21 04:35 Hct 37.6 % (30.3-42.9) 07/23/21 04:35 MCV 98 fl (79-97) H 07/23/21 04:35 MCH 32 pg (28-32) 07/23/21 04:35 MCHC 32 % (30-34) 07/23/21 04:35 RDW 16.2 % (13.2-15.2) H 07/23/21 04:35 Plt Count 367 K/mm3 (140-440) 07/23/21 04:35 Lymph % (Auto) 7.9 % (13.4-35.0) L 07/23/21 04:35 [place] % (Auto) 5.6 % (0.0-7.3) 07/23/21 04:35 Eos % (Auto) 0.8 % (0.0-4.3) 07/23/21 04:35 Baso % (Auto) 0.4 % (0.0-1.8) 07/23/21 04:35 Lymph # (Auto) 0.9 K/mm3 (1.2-5.4) L 07/23/21 04:35 [place] # (Auto) 0.6 K/mm3 (0.0-0.8) 07/23/21 04:35 Eos # (Auto) 0.1 K/mm3 (0.0-0.4) 07/23/21 04:35 Baso # (Auto) 0.0 K/mm3 (0.0-0.1) 07/23/21 04:35 Add Manual Diff Complete 07/09/21 04:45 Total Counted 100 07/09/21 04:45 Seg Neutrophils % 85.3 % (40.0-70.0) H 07/23/21 04:35 Seg Neuts % (Manual) 82.0 % (40.0-70.0) H 07/09/21 04:45 Band Neutrophils % 1.0 % 05/12/21 04:05 Lymphocytes % (Manual) 13.0 % (13.4-35.0) L 07/09/21 04:45 Monocytes % (Manual) 3.0 % (0.0-7.3) 07/09/21 04:45 Eosinophils % (Manual) 2.0 % (0.0-4.3) 07/09/21 04:45 Nucleated RBC % Not Reportable 07/09/21 04:45 Seg Neutrophils # 9.2 K/mm3 (1.8-7.7) H 07/23/21 04:35 Seg Neutrophils # Man 7.8 K/mm3 (1.8-7.7) H 07/09/21 04:45 Band Neutrophils # 0.0 K/mm3 07/09/21 04:45 Lymphocytes # (Manual) 1.2 K/mm3 (1.2-5.4) 07/09/21 04:45 Abs React Lymphs (Man) 0.0 K/mm3 07/09/21 04:45 Monocytes # (Manual) 0.3 K/mm3 (0.0-0.8) 07/09/21 04:45 Eosinophils # (Manual) 0.2 K/mm3 (0.0-0.4) 07/09/21 04:45 Basophils # (Manual) 0.0 K/mm3 (0.0-0.1) 07/09/21 04:45 Metamyelocytes # 0.0 K/mm3 07/09/21 04:45 Myelocytes # 0.0 K/mm3 07/09/21 04:45 Promyelocytes # 0.0 K/mm3 07/09/21 04:45 Blast Cells # 0.0 K/mm3 07/09/21 04:45 WBC Morphology Not Reportable 07/09/21 04:45 Hypersegmented Neuts Not Reportable 07/09/21 04:45 Hyposegmented Neuts Not Reportable 07/09/21 04:45 Hypogranular Neuts Not Reportable 07/09/21 04:45 Smudge Cells Not Reportable 07/09/21 04:45 Toxic Granulation Not Reportable 07/09/21 04:45 Toxic Vacuolation Not Reportable 07/09/21 04:45 Dohle Bodies Not Reportable 07/09/21 04:45 Pelger-Huet Anomaly Not Reportable 07/09/21 04:45 Janelle Rods Not Reportable 07/09/21 04:45 Platelet Estimate Consistent w auto 07/09/21 04:45 Clumped Platelets Not Reportable 07/09/21 04:45 Plt Clumps, EDTA Not Reportable 07/09/21 04:45 Large Platelets Not Reportable 07/09/21 04:45 Giant Platelets Rare 07/09/21 04:45 Platelet Satelliting Not Reportable 07/09/21 04:45 Plt Morphology Comment Not Reportable 07/09/21 04:45 RBC Morphology Not Reportable 07/09/21 04:45 Dimorphic RBCs Not Reportable 07/09/21 04:45 Polychromasia Not Reportable 07/09/21 04:45 Hypochromasia Few 07/09/21 04:45 Poikilocytosis Not Reportable 07/09/21 04:45 Anisocytosis Not Reportable 07/09/21 04:45 Microcytosis Not Reportable 07/09/21 04:45 Macrocytosis Not Reportable 07/09/21 04:45 Spherocytes Not Reportable 07/09/21 04:45 Pappenheimer Bodies Not Reportable 07/09/21 04:45 Sickle Cells Not Reportable 07/09/21 04:45 Target Cells Not Reportable 07/09/21 04:45 Tear Drop Cells Not Reportable 07/09/21 04:45 Ovalocytes Not Reportable 07/09/21 04:45 Stomatocytes 1+ 07/09/21 04:45 Helmet Cells Not Reportable 07/09/21 04:45 Ahuja-Nunn Bodies Not Reportable 07/09/21 04:45 [place] Rings Not Reportable 07/09/21 04:45 Crow Cells Not Reportable 07/09/21 04:45 Bite Cells Not Reportable 07/09/21 04:45 Crenated Cell Not Reportable 07/09/21 04:45 Elliptocytes Not Reportable 07/09/21 04:45 Acanthocytes (Spur) Not Reportable 07/09/21 04:45 Rouleaux Not Reportable 07/09/21 04:45 Hemoglobin C Crystals Not Reportable 07/09/21 04:45 Schistocytes Not Reportable 07/09/21 04:45 Malaria parasites Not Reportable 07/09/21 04:45 Justin Bodies Not Reportable 07/09/21 04:45 Hem Pathologist Commnt No 07/09/21 04:45 D-Dimer 638.35 ng/mlDDU (0-234) H 07/09/21 04:45 ABG pH 7.417 (7.320-7.450) 07/23/21 18:11 POC ABG pCO2 78.3 mmHg (32.0-48.0) H 07/23/21 18:11 ABG pCO2 85.7 mm Hg 07/22/21 12:05 POC ABG pO2 80.7 mmHg (83-108) L 07/23/21 18:11 ABG pO2 66.1 mm Hg (80.0-90.0) L 07/22/21 12:05 POC ABG HCO3 49.3 07/23/21 18:11 ABG HCO3 45.0 mmol/L (20.0-26.0) H 07/22/21 12:05 ABG O2 Saturation 96.7 (0-100) 07/23/21 18:11 ABG O2 Content 16.8 (0.0-44) 07/22/21 12:05 POC ABG Base Excess 20.5 07/23/21 18:11 ABG Base Excess 15.2 mmol/L (-2.0-3.0) H 07/22/21 12:05 ABG Hemoglobin 12.6 (12.0-17.5) 07/23/21 18:11 ABG Oxyhemoglobin 95.7 (94-98) 07/23/21 18:11 ABG Carboxyhemoglobin 1.9 % (0.0-5.0) 07/22/21 12:05 ABG Methemoglobin 0.3 (0.0-1.5) 07/23/21 18:11 ABG Sodium 134.9 mmol/L (136.0-145.0) L 07/23/21 18:11 ABG Potassium 3.9 mmol/L (3.40-4.50) 07/23/21 18:11 ABG Chloride 89.0 mmol/L (98-107) L 07/23/21 18:11 ABG Glucose 200 mg/dL (65-95) H 07/23/21 18:11 Oxyhemoglobin 91.9 % (95.0-99.0) L 07/22/21 12:05 Carboxyhemoglobin 0.7 (0.5-1.5) 07/23/21 18:11 FiO2 100 % 07/22/21 12:05 FiO2 % 100.0 07/23/21 18:11 Sodium 140 mmol/L (137-145) 08/08/21 04:51 Potassium 4.1 mmol/L (3.6-5.0) 08/08/21 04:51 Chloride 92.9 mmol/L (98-107) L 08/08/21 04:51 Carbon Dioxide 39 mmol/L (22-30) H 08/08/21 04:51 Anion Gap 12 mmol/L 08/08/21 04:51 BUN 9 mg/dL (7-17) 08/08/21 04:51 Creatinine < 0.2 mg/dL (0.6-1.2) L 08/08/21 04:51 Estimated GFR > 60 ml/min 08/08/21 04:51 BUN/Creatinine Ratio 45 % 08/08/21 04:51 Glucose 105 mg/dL (65-100) H 08/08/21 04:51 POC Glucose 255 mg/dL (70-105) H 08/24/21 11:25 Hemoglobin A1c 8.5 % (4-6) H 04/18/21 07:36 Calcium 9.4 mg/dL (8.4-10.2) 08/08/21 04:51 Phosphorus 3.70 mg/dL (2.5-4.5) 07/23/21 04:35 Magnesium 2.10 mg/dL (1.7-2.3) 07/23/21 04:35 Ferritin 155.9 ng/mL (10.0-200.0) 07/09/21 04:45 Total Bilirubin < 0.20 mg/dL (0.1-1.2) 07/26/21 09:56 AST 23 units/L (5-40) 07/26/21 09:56 ALT 25 units/L (7-56) 07/26/21 09:56 Alkaline Phosphatase 69 units/L (35-129) 07/26/21 09:56 Lactate Dehydrogenase 475 units/L (91-180) H 06/05/21 05:26 C-Reactive Protein 4.30 mg/dL (0.00-1.30) H 07/09/21 04:45 NT-Pro-B Natriuret Pep 59.45 pg/mL (0-450) 07/07/21 13:40 Total Protein 8.1 g/dL (6.3-8.2) 07/26/21 09:56 Albumin 3.2 g/dL (3.9-5) L 07/26/21 09:56 Albumin/Globulin Ratio 0.7 % 07/26/21 09:56 Triglycerides < 9 mg/dL (2-149) 05/03/21 04:30 Procalcitonin < 0.05 ng/mL (<0.15) 05/23/21 09:50 Arterial Blood Glucose 200 mg/dL (65-95) H 07/23/21 18:11 Arterial Blood Ionized Calcium 4.6 mg/dL (4.6-5.3) 07/23/21 18:11 Coronavirus (PCR) Negative (Negative) 07/25/21 Unknown Amos/IV: Voiding Method External Female Catheter Active Medications - Current Medications Current Medications: Generic Name Dose Route Start Last Admin Trade Name Freq PRN Reason Stop Dose Admin Acetaminophen 650 mg 07/02/21 17:48 08/23/21 23:03 Acetaminophen 325 Mg Tab PO 650 mg Q4H PRN Administration Pain, Mild (1-3) Albuterol 2.5 mg 04/16/21 13:39 04/21/21 20:39 Albuterol 2.5 Mg/3 Ml Nebu IH 2.5 mg Q4HRT PRN Administration Shortness Of Breath Alprazolam 1 mg 08/12/21 11:00 08/24/21 10:03 Alprazolam 1 Mg Tab PO 1 mg BID TUTU Administration Calcium Carbonate/Glycine 500 mg 07/24/21 10:43 08/14/21 22:24 Calcium Carbonate 500 Mg Tab Chew PO 500 mg BID PRN Administration reflux Cholecalciferol 1,000 unit 04/17/21 10:00 08/24/21 10:03 Cholecalciferol (Vit D3) 1000 Unit (25 Mcg) Tab PO 1,000 unit QDAY TUTU Administration Enoxaparin Sodium 40 mg 05/19/21 22:00 08/23/21 23:01 Enoxaparin 40 Mg/0.4 Ml Inj SUB-Q 40 mg QDAY@2200 TUTU Administration Protocol Insulin Glargine 10 units 08/17/21 13:33 08/24/21 10:02 Insulin Glargine 100 Units/Ml SUB-Q 10 units DAILY TUTU Administration Insulin Human Lispro 0 unit 05/18/21 12:00 08/24/21 10:03 Insulin Lispro 100 Unit/Ml SUB-Q 3 unit ACHS TUTU Administration Protocol Methylprednisolone Sodium Succinate 125 mg 08/23/21 14:00 08/24/21 05:30 Methylprednisolone Sod Succinate 125 Mg/2 Ml Inj IV 125 mg Q8HR TUTU Administration Ondansetron HCl 4 mg 04/16/21 14:00 05/30/21 10:07 Ondansetron 4 Mg/2 Ml Inj IV 4 mg Q8H PRN Administration Nausea And Vomiting Polyethylene Glycol 17 gm 07/16/21 20:00 08/11/21 11:18 Polyethylene Glycol 3350 17 Gm Powder PO 17 gm QDAY PRN Administration Constipation Sodium Chloride 10 ml 04/16/21 13:39 08/23/21 23:00 Sodium Chloride 0.9% 10 Ml Flush Syringe IV 10 ml PRN PRN Administration LINE FLUSH Nutrition/Malnutrition Assess - Dietary Evaluation Nutrition/Malnutrition Findings: Nutrition Notes Start: 04/23/21 07:41 Freq: Status: Active Protocol: Document 08/09/21 17:26 SAQIB (Rec: 08/09/21 17:30 [email or web address] [email or web address]) Nutrition Notes Initial or Follow up Brief Note Subjective/Other Information RD brief note to set next F/U on 09/12 Nutrition Intervention Follow-Up By: 09/12/21 Additional Comments Continue monitoring food tolerance, %PO intake of meals , Hydration, and BM.
--- NOTE | 2021-08-24 13:04 | Progress Note ---
Assessment and Plan 50 y/o female with acute respiratory failure secondary to COVID19 pneumonia. 08/24/2021 No significant change since yesterday. We will continue with steroid at this time. 08/23/21: Patient continues to have slow improvement with steroids so please continue solumedrol 125q8 through the weekend at least and will reassess on Thursday. CM is working to obtain hospice placement with hfnc therapy. Repeat CXR on Thursday. 08/21/21: Will repeat CXR today. Consider decreasing steroid tomorrow. 08/18/21: Will continue steroids at current dosing as I believe they are helping. IMS managing blood sugars. I notified RT but I dropped FiO2 down to 55% while patient was sleeping. Will continue to follow. CM still working with hospice to get home but has to meet certain criteria on HFNC and she is not there yet. 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 Will continue solumedrol 125q8 and wean slowly over time. Discussed with pharmacy. CM working on possible placement with hospice company once she reaches a certain goal of HFNC. Will continue to monitor. 08/14/21: wean HFNC as tolerated. 08/12/21: Continue to attempt to wean HFNC. No other therapies available for this at present. Will check CXR today. 08/07/21: Constant struggle with Ms. Ren, on and off bipap. Good and bad days. She has had all therapy. Anxiety does play a huge roll but she truly desats. Continue NIV at night and PRN during the day. Wean HFNC as tolerated for sats >88%. May consider another trial of steroids when I come back. My partner is rounding the next 4 days. 08/05/21: I dropped FiO2 to 65%. Continue to wean for sats >88%. 08/03/21: COntinue supportive measures. Thank you for documenting refusal of NIV at night. Will attempt to speak with patient about anxiety and why she doesn't want to wear the NIV via the language line. 08/02/21: Continue supportive care. pLaced new order for NIV at night. Please document if patient refuses 07/31/21: COntinue to wean FiO2 as tolerated. NIV at night. 07/30/21: Bipap QHS. Please document if patient is refusing this at night. Per nurse she has refused but RT documentation reflects that it was PRN and not needed. Prognosis is still guarded. 07/29/21: Continue to attempt to wean FiO2. Given fluctuations in oxygen requirements, ok with keeping in IMCU. consider using bipap therapy at night if patient will allow. Prognosis still remains guarded. Patient has been here 104 days. 07/21/21: Wean FiO2 as tolerated. Patient has never proned the entire 96 days she has been here. Will continue bipap at night. Hold on lasix again today. Prognosis remains guarded. Has finished steroids and all other experimental COVID drugs with minimal to no improvement. 07/20/21: Give patient a break off of bipap and attempt high flow nasal cannula today. Will feed. Suggest keeping bipap therapy at night. Monitor fluid balance and BP. May need more lasix. 07/19/21: This was not related to stopping steroids as hemodynamically she is stable. Her sats is very good on 90%, I dropped to 85 and will continue to wean. She speaks no [place] and is very anxious. This adds to her work of breathing. COntinue to wean FiO2 as tolerated. Will give periodic breaks on bipap therapy. Guarded prognosis. 07/17/21: will stop steroids today. Hold on lasix given marginal blood pressure . Guarded prognosis. 07/15/21: Lasix today. Positive fluid balance all weekend based on I/O. Prone. Wean for sats >88% 07/12/21: Gave lasix 40mg IV again this am. Per charting yesterday was the first net negative day. Suggest PRN diuresis over the weekend as well. My partner is rounding but will likely see as needed. Continue to wean for sats >88% 07/11/21: Lasix 40mg IV this am. Attempt to prone if able. Attempt to achieve daily net negative state. Wean for sats >88%. Guarded prognosis. Will change prednisone to 5mg daily starting tomorrow. 07/09/21: Echo shows diastolic dysfunction. Will given an additional 40 of IV lasix today. Monitor daily and wean aggressively for sats >88% 07/08/21: Worsening CXR, Gave lasix yesterday and will give again today. Suggest checking echo, ekg. Prognosis is poor now with this change. We have seen COVID cause CAD with GA. 07/05/21: Will monitor over the weekend. Worst case scenario, may need to go back up to Prednisone 20 at least. Prone if able. Unsure why all of sudden oxygen requirement increasing. Will repeat CXR. 07/03/21: Down to 10 of prednisone. Will keep through the weekend and then drop to 5 on Thursday. PT/OT assessment if not done. Suggest maybe weaning flow now given FiO2 down to 50%. Prognosis is still guarded. 07/01/21: Will drop steroids to 10mg daily starting tomorrow. Wean for sats >88%. Prone. PT/OT should be seeing now that oxygen requirement is down more. 06/28/21: Continue to wean as tolerated. Will drop steroids down even further next week. Will see PRN over the weekend. 06/26/21: Will drop steroids down to 20 starting tomorrow. Prone. Continue to wean as tolerated. 06/24/21: Continue Pred, will drop to 20 daily tomorrow. Prone if able. Hopeful they can wean FiO2 more. May need to consider increasing flow for a while. 06/21/21: Continue pred at 40, will decrease likely Thursday/Thursday to 20 daily. Prone if able. Continue to wean as tolerated. Prognosis still remains guarded. 06/20/21: Will drop steroids down to 40 today. Proning. Continue to wean FiO2. 06/18/21: Wean Fio2 for sats >88%. Please encourage proning. Drop steroids down to 40 on . 06/14/21: Continue oral steroid therapy. Will do further weaning next week. Wean for sats >88% and prone as tolerated. Will see as needed over the weekend. 06/13/21: Will change to prednisone 60 daily starting tomorrow. Prone if able and wean for sats >88% 06/11/21: no new recs, will change to oral steroids tomorrow, continue to prone if able and wean for sats >88% 06/10/21: Will change to oral steroids on Thursday to begin prolonged taper 06/06/21: Continue to wean as tolerated, will drop steroids on tomorrow. 06/04/21: Clinically no change. Will drop steroids down the end of this week. 05/31/21: Clinically no change. Not eligible for LTACH. Encourage Proning. Will drop steroids down to 40 q8 05/29/21: No acute changes clinically. Still on HFNC but not really able to wean. Continue to encourage proning. Will drop steroids further on Thursday. 05/27/21: No improvement over the weekend but also no worsening. No other strategies to offer. Please continue to encourage patient to prone. I dropped steroids on yesterday. Will wean more later in the week. 05/24/21: No new recs again for today. Will see as needed over the weekend but follow chart peripherally for changes. 05/22/21: No new recs for today. Prognosis remains guarded. 05/21/21: Wean as tolerated. Prone if able. Guarded prognosis 05/20/21: COntinue current level of care. 05/17/21: Prone if possible. Wean FiO2 for sats >88%. Continue scheduled ativan. Prognosis is very very guarded. Unfunded so not a candidate for LTACH 05/16/21: Prone if willing. Wean FIO2 if patient will allow. Anxiety control. Prognosis still remains very guarded. 05/15/21: Not sure if MAR is accurate but may have only gotten one dose of scheduled anixolytic therapy. Continue proning as tolerated, and wean FiO2 and flow for sats >88%. Prognosi remains very very guarded to poor. 05/14/21: Will discontinue the buspar and make the ativan scheduled but will do q6 as oppose to q4 and attempt to leave parameters for nursing when not to give. If anxiety could be controlled, feel that patient could be weaned further. She has no funding so she is not a candidate for LTACH. Prone if possible. Guarded prognosis. This is her day. 05/13/21: Ordered buspar 10 BID to start with to help with anxiety. Please continue to wean FiO2 as tolerated. Will remind nurse that there is PRN ativan available. Continue higher doses of steroids. Prone if able. 05/12/21: Patient may need something longer acting for anxiety. Per chart has not gotten any ativan in days. Would be ok with either buspar or low dose klonopin bid. COntinue higher doses of steroids as patient seems to be responding. Prone if possible. 05/11/21: Continue high doses of steroids and continue to wean for sats >88%. Please encourage proning. 05/10/21: Will continue this dose of steroid at least through the weekend and assess for improvement. will speak with RT about aggressive weaning. Full dose anticoagulation continues. Very very guarded to poor prognosis. 05/09/21: Going to consider increasing steroids to 125q8, maybe as early as tomorrow. continue full dose anticoagulation. 05/08/21: Continue anticoagulation and steroids. Prone if possible. Anxiety control. No objection to CTA if this can happen. Very very guarded prognosis. 05/07/21: Spoke with IMS, not opposed to full dose anticoagulation. If patient goes back on NRB HFNC combo may need to consider restarting PPN again. Encourage proning. Guarded prognosis. 05/06/21: Continue to wean FiO2 and flow for sats >88%. Tolerating diet now so will stop PPN. Continue anxiety control. Continue IV steroids. Would not object to transfer to COVID floor if bed available. Not sure why she was titrated back up to 100% from 85 as all sats documented in the RT's notes were acceptable. Same for under vital signs as well. 05/03/21: Set back last night from yesterday. Continue bipap therapy for now and attempt HFNC maybe later this afternoon. Continue to use PRN ativan but may need to schedule as she likely took off mask from anxiety. Continue IV steroids. Hold on transfer to COVID Floor. 05/02/21: Continue to wean FiO2 as tolerated for sats >88%. Will continue bipap at night. Patient has no funding so not a candidate for LTACH. Given that she has been stable and not requiring the combo of HFNC and NRB, will consider moving to COVID floor. 05/01/21: Continue to wean FiO2 for sats >88%. A sat of 90 is more than acceptable and oxygen should not be increased for this unless patient desats and remains at a sat lower than 88. Bipap at night to give some form of relief and HFNC during the day. Currently on just this alone which is improvement. Ok with daily diuresis but must monitor renal function and BP closely. She was over diuresed last week and we ended up giving fluid back. Prognosis remains guarded. 04/30/21: Will start CLinimix today for nutritional support, without electrolytes. Check labs in am. Prone if able. Continue precedex for anxiety. Very very guarded prognosis. Attempting our best to not intubate. 04/29/21: Continue precedex. Continue IV solumedrol. Prone if able. Guarded prognosis. 04/28/21: Continue Precedex. Picc team attempting to place line now. Stable on Bipap. Ordered steroids IV solumedrol to start today. Prognosis remains guarded, still at very high risk for intubation. 04/27/21: Hypotension improving/improved. Hold on any further lasix dosing. Continue precedex to help with anxeity. later today please attempt HFNC with NRB if needed. Attempt to feed if possible. Steroids end today, please order solumedrol 40q8 to start tomorrow (04/28/21). guarded prognosis. 04/26/21: Hypotension today, most likely from precedex use and diuresis that I did the last several days. Will bolus again today. Consider midodrine if BP does not respond. 04/25/21: Lasix again today. Keep PRN ativan for now. Hold on precedex for now. Guarded prognosis. Labs ordered for tomorrow. 04/24/21: Lasix today. Will also start patient on low dose PRN ativan. If this does not help will then try precedex. Guarded prognosis. 04/23/21: Prone as tolerated. No lasix today. Continue decadron. Guarded prognosis. High risk for intubation and high mortality with intubation. 04/19/21: Prone as tolerated during the day and sleep prone at night. Continue IV remdesivir and steroids. Did get actemra. Guarded prognosis. 1. Daily net negative state 2. Prone if possible 3. IV remdesivir. 4. Should be a candidate for Actemra 5. IV steroids 6. Guarded Prognosis Subjective Date of service: 08/23/21 Subjective Date of service: 08/24/21 Principal diagnosis: Covid-19 Interval history: No change remains somewhat unresponsive on oxygen through nasal cannula Objective - Exam Narrative Exam: General appearance: Present: no acute distress, well-nourished. - EENT Eyes: Present: PERRL, EOM intact ENT: hearing intact, clear oral mucosa - Neck Neck: Present: supple, normal ROM - Respiratory Respiratory effort: normal Respiratory: bilateral: diminished (On high flow nasal cannula) and NRBM - Cardiovascular Rhythm: regular Heart Sounds: Present: S1 & S2 - Extremities Extremities: no ischemia, pulses intact, pulses symmetrical, No edema, normal temperature, normal color, Full ROM Peripheral Pulses: within normal limits - Abdominal General gastrointestinal: soft, non-tender, non-distended, normal bowel sounds - Integumentary Integumentary: Present: clear, warm, dry - Psychiatric Psychiatric: appropriate mood/affect, memory intact, cooperative - Neurologic Neurologic: CNII-XII intact, moves all extremities Vital Signs - 12hr 08/24/21 08/24/21 08/24/21 01:00 02:00 03:00 Temperature Pulse Rate 97 H 97 H 94 H Pulse Rate [ From Monitor] Respiratory 25 H 25 H 26 H Rate Blood Pressure 124/70 135/63 135/63 O2 Sat by Pulse 91 91 96 Oximetry 08/24/21 08/24/21 08/24/21 04:00 05:00 06:00 Temperature 97.4 F L Pulse Rate 100 H 92 H 94 H Pulse Rate [ 100 H From Monitor] Respiratory 25 H 24 28 H Rate Blood Pressure 127/65 119/79 127/79 O2 Sat by Pulse 91 94 94 Oximetry 08/24/21 08/24/21 08/24/21 07:00 08:00 09:00 Temperature 98 F Pulse Rate 92 H 94 H 107 H Pulse Rate [ 87 From Monitor] Respiratory 23 25 H 30 H Rate Blood Pressure 132/72 125/76 129/65 O2 Sat by Pulse 95 94 91 Oximetry 08/24/21 08/24/21 08/24/21 09:22 10:00 11:00 Temperature Pulse Rate 105 H 100 H Pulse Rate [ From Monitor] Respiratory 32 H 28 H Rate Blood Pressure 124/69 117/63 O2 Sat by Pulse 95 96 97 Oximetry 08/24/21 08/24/21 08/24/21 11:36 11:44 11:48 Temperature 99.2 F Pulse Rate 98 H Pulse Rate [ 98 H From Monitor] Respiratory 40 H Rate Blood Pressure O2 Sat by Pulse 95 Oximetry Constitutional: alert, other (on hiflo o2) Eyes: non-icteric ENT: oropharynx moist Neck: supple Effort: normal Ascultation: Bilateral: diminished breath sounds Cardiovascular: regular rate and rhythm Gastrointestinal: normoactive bowel sounds, soft, non-tender, non-distended Integumentary: normal Extremities: no cyanosis, no edema, pink and warm Neurologic: non-focal exam, pupils equal and round Psychiatric: mood appropriate, affect normal CBC and BMP: 07/23/21 04:35 08/08/21 04:51 ABG, PT/INR, D-dimer: ABG ABG pH 7.417 (7.320-7.450) 07/23/21 18:11 POC ABG pCO2 78.3 mmHg (32.0-48.0) H 07/23/21 18:11 ABG pCO2 85.7 mm Hg 07/22/21 12:05 POC ABG pO2 80.7 mmHg (83-108) L 07/23/21 18:11 ABG pO2 66.1 mm Hg (80.0-90.0) L 07/22/21 12:05 POC ABG HCO3 49.3 07/23/21 18:11 ABG O2 Saturation 96.7 (0-100) 07/23/21 18:11 PT/INR, D-dimer D-Dimer 638.35 ng/mlDDU (0-234) H 07/09/21 04:45 Abnormal lab findings: Abnormal Labs 04/16/21 04/16/21 04/16/21 11:42 11:42 11:42 WBC MCV MCH MCHC RDW 16.1 H Lymph % (Auto) 7.8 L [place] % (Auto) Eos % (Auto) Lymph # (Auto) 0.8 L [place] # (Auto) Eos # (Auto) Baso # (Auto) Seg Neutrophils % 87.7 H Seg Neuts % (Manual) Lymphocytes % (Manual) Seg Neutrophils # 8.5 H Seg Neutrophils # Man Lymphocytes # (Manual) D-Dimer 338.70 H ABG pH POC ABG pCO2 POC ABG pO2 ABG pO2 ABG HCO3 ABG O2 Saturation ABG Base Excess ABG Oxyhemoglobin ABG Sodium ABG Chloride ABG Glucose Oxyhemoglobin Carboxyhemoglobin Sodium Potassium Chloride Carbon Dioxide BUN Creatinine Glucose 194 H POC Glucose Hemoglobin A1c Magnesium Ferritin AST ALT Alkaline Phosphatase Lactate Dehydrogenase C-Reactive Protein Total Protein 8.4 H Albumin 3.8 L Arterial Blood Glucose Coronavirus (PCR) 04/16/21 04/16/21 04/17/21 11:42 11:42 03:50 WBC MCV MCH MCHC RDW 16.0 H Lymph % (Auto) 7.7 L [place] % (Auto) Eos % (Auto) Lymph # (Auto) 0.6 L [place] # (Auto) Eos # (Auto) Baso # (Auto) Seg Neutrophils % 89.8 H Seg Neuts % (Manual) Lymphocytes % (Manual) Seg Neutrophils # Seg Neutrophils # Man Lymphocytes # (Manual) D-Dimer ABG pH POC ABG pCO2 POC ABG pO2 ABG pO2 ABG HCO3 ABG O2 Saturation ABG Base Excess ABG Oxyhemoglobin ABG Sodium ABG Chloride ABG Glucose Oxyhemoglobin Carboxyhemoglobin Sodium Potassium Chloride Carbon Dioxide BUN Creatinine Glucose 195 H POC Glucose Hemoglobin A1c Magnesium Ferritin 254.3 H AST ALT Alkaline Phosphatase Lactate Dehydrogenase 359 H C-Reactive Protein 15.20 H Total Protein Albumin Arterial Blood Glucose Coronavirus (PCR) 04/17/21 04/17/21 04/17/21 03:50 08:26 08:26 WBC MCV MCH MCHC RDW Lymph % (Auto) [place] % (Auto) Eos % (Auto) Lymph # (Auto) [place] # (Auto) Eos # (Auto) Baso # (Auto) Seg Neutrophils % Seg Neuts % (Manual) Lymphocytes % (Manual) Seg Neutrophils # Seg Neutrophils # Man Lymphocytes # (Manual) D-Dimer 262.48 H ABG pH POC ABG pCO2 POC ABG pO2 ABG pO2 ABG HCO3 ABG O2 Saturation ABG Base Excess ABG Oxyhemoglobin ABG Sodium ABG Chloride ABG Glucose Oxyhemoglobin Carboxyhemoglobin Sodium Potassium Chloride Carbon Dioxide BUN 20 H Creatinine 0.5 L Glucose 249 H 225 H POC Glucose Hemoglobin A1c Magnesium Ferritin AST ALT Alkaline Phosphatase Lactate Dehydrogenase 338 H C-Reactive Protein 17.20 H Total Protein Albumin 3.2 L Arterial Blood Glucose Coronavirus (PCR) 04/17/21 04/17/21 04/17/21 08:26 15:04 Unknown WBC MCV MCH MCHC RDW Lymph % (Auto) [place] % (Auto) Eos % (Auto) Lymph # (Auto) [place] # (Auto) Eos # (Auto) Baso # (Auto) Seg Neutrophils % Seg Neuts % (Manual) Lymphocytes % (Manual) Seg Neutrophils # Seg Neutrophils # Man Lymphocytes # (Manual) D-Dimer ABG pH POC ABG pCO2 POC ABG pO2 ABG pO2 ABG HCO3 ABG O2 Saturation ABG Base Excess ABG Oxyhemoglobin ABG Sodium ABG Chloride ABG Glucose Oxyhemoglobin Carboxyhemoglobin Sodium Potassium Chloride Carbon Dioxide BUN 20 H Creatinine 0.5 L Glucose 246 H POC Glucose Hemoglobin A1c Magnesium Ferritin 392.0 H AST ALT Alkaline Phosphatase Lactate Dehydrogenase C-Reactive Protein Total Protein 8.3 H Albumin 3.1 L Arterial Blood Glucose Coronavirus (PCR) Positive A 04/18/21 04/18/21 04/18/21 05:06 05:06 07:36 WBC 11.6 H MCV MCH MCHC RDW 16.1 H Lymph % (Auto) [place] % (Auto) Eos % (Auto) Lymph # (Auto) [place] # (Auto) Eos # (Auto) Baso # (Auto) Seg Neutrophils % Seg Neuts % (Manual) Lymphocytes % (Manual) Seg Neutrophils # Seg Neutrophils # Man Lymphocytes # (Manual) D-Dimer ABG pH POC ABG pCO2 POC ABG pO2 ABG pO2 ABG HCO3 ABG O2 Saturation ABG Base Excess ABG Oxyhemoglobin ABG Sodium ABG Chloride ABG Glucose Oxyhemoglobin Carboxyhemoglobin Sodium Potassium 5.2 H Chloride Carbon Dioxide BUN 22 H Creatinine 0.5 L Glucose 315 H POC Glucose Hemoglobin A1c 8.5 H Magnesium Ferritin AST ALT Alkaline Phosphatase Lactate Dehydrogenase C-Reactive Protein Total Protein Albumin 3.3 L Arterial Blood Glucose Coronavirus (PCR) 04/18/21 04/18/21 04/18/21 11:59 16:43 23:24 WBC MCV MCH MCHC RDW Lymph % (Auto) [place] % (Auto) Eos % (Auto) Lymph # (Auto) [place] # (Auto) Eos # (Auto) Baso # (Auto) Seg Neutrophils % Seg Neuts % (Manual) Lymphocytes % (Manual) Seg Neutrophils # Seg Neutrophils # Man Lymphocytes # (Manual) D-Dimer ABG pH POC ABG pCO2 POC ABG pO2 ABG pO2 ABG HCO3 ABG O2 Saturation ABG Base Excess ABG Oxyhemoglobin ABG Sodium ABG Chloride ABG Glucose Oxyhemoglobin Carboxyhemoglobin Sodium Potassium Chloride Carbon Dioxide BUN Creatinine Glucose POC Glucose 284 H 273 H 290 H Hemoglobin A1c Magnesium Ferritin AST ALT Alkaline Phosphatase Lactate Dehydrogenase C-Reactive Protein Total Protein Albumin Arterial Blood Glucose Coronavirus (PCR) 04/19/21 04/19/2104/19/21 04:19 04:19 08:10 WBC MCV MCH MCHC RDW 15.7 H Lymph % (Auto) [place] % (Auto) Eos % (Auto) Lymph # (Auto) [place] # (Auto) Eos # (Auto) Baso # (Auto) Seg Neutrophils % Seg Neuts % (Manual) Lymphocytes % (Manual) Seg Neutrophils # Seg Neutrophils # Man Lymphocytes # (Manual) D-Dimer ABG pH POC ABG pCO2 POC ABG pO2 ABG pO2 ABG HCO3 ABG O2 Saturation ABG Base Excess ABG Oxyhemoglobin ABG Sodium ABG Chloride ABG Glucose Oxyhemoglobin Carboxyhemoglobin Sodium Potassium Chloride Carbon Dioxide BUN 27 H Creatinine 0.4 L Glucose 184 H POC Glucose 194 H Hemoglobin A1c Magnesium Ferritin AST ALT Alkaline Phosphatase Lactate Dehydrogenase C-Reactive Protein Total Protein Albumin 3.1 L Arterial Blood Glucose Coronavirus (PCR) 04/19/21 04/19/21 04/19/21 11:38 16:25 22:04 WBC MCV MCH MCHC RDW Lymph % (Auto) [place] % (Auto) Eos % (Auto) Lymph # (Auto) [place] # (Auto) Eos # (Auto) Baso # (Auto) Seg Neutrophils % Seg Neuts % (Manual) Lymphocytes % (Manual) Seg Neutrophils # Seg Neutrophils # Man Lymphocytes # (Manual) D-Dimer ABG pH POC ABG pCO2 POC ABG pO2 ABG pO2 ABG HCO3 ABG O2 Saturation ABG Base Excess ABG Oxyhemoglobin ABG Sodium ABG Chloride ABG Glucose Oxyhemoglobin Carboxyhemoglobin Sodium Potassium Chloride Carbon Dioxide BUN Creatinine Glucose POC Glucose 224 H 297 H 251 H Hemoglobin A1c Magnesium Ferritin AST ALT Alkaline Phosphatase Lactate Dehydrogenase C-Reactive Protein Total Protein Albumin Arterial Blood Glucose Coronavirus (PCR) 04/20/21 04/20/21 04/20/21 05:28 08:43 16:21 WBC MCV MCH MCHC RDW Lymph % (Auto) [place] % (Auto) Eos % (Auto) Lymph # (Auto) [place] # (Auto) Eos # (Auto) Baso # (Auto) Seg Neutrophils % Seg Neuts % (Manual) Lymphocytes % (Manual) Seg Neutrophils # Seg Neutrophils # Man Lymphocytes # (Manual) D-Dimer ABG pH POC ABG pCO2 POC ABG pO2 ABG pO2 ABG HCO3 ABG O2 Saturation ABG Base Excess ABG Oxyhemoglobin ABG Sodium ABG Chloride ABG Glucose Oxyhemoglobin Carboxyhemoglobin Sodium Potassium Chloride Carbon Dioxide BUN 27 H Creatinine Glucose 192 H POC Glucose 173 H 253 H Hemoglobin A1c Magnesium Ferritin AST ALT Alkaline Phosphatase Lactate Dehydrogenase C-Reactive Protein Total Protein Albumin 3.0 L Arterial Blood Glucose Coronavirus (PCR) 04/21/21 04/21/21 04/21/21 07:58 12:05 16:08 WBC MCV MCH MCHC RDW Lymph % (Auto) [place] % (Auto) Eos % (Auto) Lymph # (Auto) [place] # (Auto) Eos # (Auto) Baso # (Auto) Seg Neutrophils % Seg Neuts % (Manual) Lymphocytes % (Manual) Seg Neutrophils # Seg Neutrophils # Man Lymphocytes # (Manual) D-Dimer ABG pH POC ABG pCO2 POC ABG pO2 ABG pO2 ABG HCO3 ABG O2 Saturation ABG Base Excess ABG Oxyhemoglobin ABG Sodium ABG Chloride ABG Glucose Oxyhemoglobin Carboxyhemoglobin Sodium Potassium Chloride Carbon Dioxide BUN Creatinine Glucose POC Glucose 140 H 252 H 214 H Hemoglobin A1c Magnesium Ferritin AST ALT Alkaline Phosphatase Lactate Dehydrogenase C-Reactive Protein Total Protein Albumin Arterial Blood Glucose Coronavirus (PCR) 04/21/21 04/22/21 04/22/21 21:42 08:37 12:01 WBC MCV MCH MCHC RDW Lymph % (Auto) [place] % (Auto) Eos % (Auto) Lymph # (Auto) [place] # (Auto) Eos # (Auto) Baso # (Auto) Seg Neutrophils % Seg Neuts % (Manual) Lymphocytes % (Manual) Seg Neutrophils # Seg Neutrophils # Man Lymphocytes # (Manual) D-Dimer ABG pH 7.457 H POC ABG pCO2 POC ABG pO2 49.4 L ABG pO2 ABG HCO3 ABG O2 Saturation ABG Base Excess ABG Oxyhemoglobin 85.6 L ABG Sodium ABG Chloride ABG Glucose 121 H Oxyhemoglobin Carboxyhemoglobin 0.3 L Sodium Potassium Chloride Carbon Dioxide BUN Creatinine Glucose POC Glucose 162 H 227 H Hemoglobin A1c Magnesium Ferritin AST ALT Alkaline Phosphatase Lactate Dehydrogenase C-Reactive Protein Total Protein Albumin Arterial Blood Glucose 121 H Coronavirus (PCR) 04/22/21 04/22/21 04/23/21 16:26 22:23 04:52 WBC MCV MCH MCHC RDW 15.7 H Lymph % (Auto) [place] % (Auto) Eos % (Auto) Lymph # (Auto) [place] # (Auto) Eos # (Auto) Baso # (Auto) Seg Neutrophils % Seg Neuts % (Manual) Lymphocytes % (Manual) Seg Neutrophils # Seg Neutrophils # Man Lymphocytes # (Manual) D-Dimer ABG pH POC ABG pCO2 POC ABG pO2 ABG pO2 ABG HCO3 ABG O2 Saturation ABG Base Excess ABG Oxyhemoglobin ABG Sodium ABG Chloride ABG Glucose Oxyhemoglobin Carboxyhemoglobin Sodium Potassium Chloride Carbon Dioxide BUN Creatinine Glucose POC Glucose 200 H 136 H Hemoglobin A1c Magnesium Ferritin AST ALT Alkaline Phosphatase Lactate Dehydrogenase C-Reactive Protein Total Protein Albumin Arterial Blood Glucose Coronavirus (PCR) 04/23/21 04/23/21 04/23/21 04:52 12:06 17:41 WBC MCV MCH MCHC RDW Lymph % (Auto) [place] % (Auto) Eos % (Auto) Lymph # (Auto) [place] # (Auto) Eos # (Auto) Baso # (Auto) Seg Neutrophils % Seg Neuts % (Manual) Lymphocytes % (Manual) Seg Neutrophils # Seg Neutrophils # Man Lymphocytes # (Manual) D-Dimer ABG pH POC ABG pCO2 POC ABG pO2 ABG pO2 ABG HCO3 ABG O2 Saturation ABG Base Excess ABG Oxyhemoglobin ABG Sodium ABG Chloride ABG Glucose Oxyhemoglobin Carboxyhemoglobin Sodium 136 L Potassium Chloride 97.7 L Carbon Dioxide BUN 23 H Creatinine Glucose 101 H POC Glucose 202 H 169 H Hemoglobin A1c Magnesium Ferritin AST 46 H ALT Alkaline Phosphatase Lactate Dehydrogenase C-Reactive Protein Total Protein Albumin 3.3 L Arterial Blood Glucose Coronavirus (PCR) 04/23/21 04/24/21 04/24/21 23:08 05:17 08:38 WBC MCV MCH MCHC RDW Lymph % (Auto) [place] % (Auto) Eos % (Auto) Lymph # (Auto) [place] # (Auto) Eos # (Auto) Baso # (Auto) Seg Neutrophils % Seg Neuts % (Manual) Lymphocytes % (Manual) Seg Neutrophils # Seg Neutrophils # Man Lymphocytes # (Manual) D-Dimer ABG pH POC ABG pCO2 POC ABG pO2 ABG pO2 ABG HCO3 ABG O2 Saturation ABG Base Excess ABG Oxyhemoglobin ABG Sodium ABG Chloride ABG Glucose Oxyhemoglobin Carboxyhemoglobin Sodium Potassium Chloride Carbon Dioxide BUN Creatinine Glucose POC Glucose 111 H 108 H 126 H Hemoglobin A1c Magnesium Ferritin AST ALT Alkaline Phosphatase Lactate Dehydrogenase C-Reactive Protein Total Protein Albumin Arterial Blood Glucose Coronavirus (PCR) 04/24/21 04/24/21 04/24/21 11:54 17:57 21:23 WBC MCV MCH MCHC RDW Lymph % (Auto) [place] % (Auto) Eos % (Auto) Lymph # (Auto) [place] # (Auto) Eos # (Auto) Baso # (Auto) Seg Neutrophils % Seg Neuts % (Manual) Lymphocytes % (Manual) Seg Neutrophils # Seg Neutrophils # Man Lymphocytes # (Manual) D-Dimer ABG pH POC ABG pCO2 POC ABG pO2 ABG pO2 ABG HCO3 ABG O2 Saturation ABG Base Excess ABG Oxyhemoglobin ABG Sodium ABG Chloride ABG Glucose Oxyhemoglobin Carboxyhemoglobin Sodium Potassium Chloride Carbon Dioxide BUN Creatinine Glucose POC Glucose 147 H 177 H 138 H Hemoglobin A1c Magnesium Ferritin AST ALT Alkaline Phosphatase Lactate Dehydrogenase C-Reactive Protein Total Protein Albumin Arterial Blood Glucose Coronavirus (PCR) 04/25/21 04/25/21 04/25/21 07:06 11:23 15:43 WBC MCV MCH MCHC RDW Lymph % (Auto) [place] % (Auto) Eos % (Auto) Lymph # (Auto) [place] # (Auto) Eos # (Auto) Baso # (Auto) Seg Neutrophils % Seg Neuts % (Manual) Lymphocytes % (Manual) Seg Neutrophils # Seg Neutrophils # Man Lymphocytes # (Manual) D-Dimer ABG pH POC ABG pCO2 POC ABG pO2 ABG pO2 ABG HCO3 ABG O2 Saturation ABG Base Excess ABG Oxyhemoglobin ABG Sodium ABG Chloride ABG Glucose Oxyhemoglobin Carboxyhemoglobin Sodium Potassium Chloride Carbon Dioxide BUN Creatinine Glucose POC Glucose 147 H 169 H 227 H Hemoglobin A1c Magnesium Ferritin AST ALT Alkaline Phosphatase Lactate Dehydrogenase C-Reactive Protein Total Protein Albumin Arterial Blood Glucose Coronavirus (PCR) 04/25/21 04/26/21 04/26/21 21:22 02:45 05:15 WBC MCV MCH MCHC RDW Lymph % (Auto) [place] % (Auto) Eos % (Auto) Lymph # (Auto) [place] # (Auto) Eos # (Auto) Baso # (Auto) Seg Neutrophils % Seg Neuts % (Manual) Lymphocytes % (Manual) Seg Neutrophils # Seg Neutrophils # Man Lymphocytes # (Manual) D-Dimer ABG pH POC ABG pCO2 POC ABG pO2 70.7 L ABG pO2 ABG HCO3 ABG O2 Saturation ABG Base Excess ABG Oxyhemoglobin 93.0 L ABG Sodium 132.7 L ABG Chloride ABG Glucose 115 H Oxyhemoglobin Carboxyhemoglobin Sodium Potassium Chloride 95.8 L Carbon Dioxide 32 H BUN 20 H Creatinine Glucose 102 H POC Glucose 196 H Hemoglobin A1c Magnesium Ferritin AST ALT Alkaline Phosphatase Lactate Dehydrogenase C-Reactive Protein Total Protein Albumin Arterial Blood Glucose 115 H Coronavirus (PCR) 04/26/21 04/26/21 04/26/21 11:49 16:09 21:07 WBC MCV MCH MCHC RDW Lymph % (Auto) [place] % (Auto) Eos % (Auto) Lymph # (Auto) [place] # (Auto) Eos # (Auto) Baso # (Auto) Seg Neutrophils % Seg Neuts % (Manual) Lymphocytes % (Manual) Seg Neutrophils # Seg Neutrophils # Man Lymphocytes # (Manual) D-Dimer ABG pH POC ABG pCO2 POC ABG pO2 ABG pO2 ABG HCO3 ABG O2 Saturation ABG Base Excess ABG Oxyhemoglobin ABG Sodium ABG Chloride ABG Glucose Oxyhemoglobin Carboxyhemoglobin Sodium Potassium Chloride Carbon Dioxide BUN Creatinine Glucose POC Glucose 114 H 188 H 136 H Hemoglobin A1c Magnesium Ferritin AST ALT Alkaline Phosphatase Lactate Dehydrogenase C-Reactive Protein Total Protein Albumin Arterial Blood Glucose Coronavirus (PCR) 04/27/21 04/27/21 04/28/21 17:34 22:12 08:26 WBC MCV MCH MCHC RDW Lymph % (Auto) [place] % (Auto) Eos % (Auto) Lymph # (Auto) [place] # (Auto) Eos # (Auto) Baso # (Auto) Seg Neutrophils % Seg Neuts % (Manual) Lymphocytes % (Manual) Seg Neutrophils # Seg Neutrophils # Man Lymphocytes # (Manual) D-Dimer ABG pH POC ABG pCO2 POC ABG pO2 ABG pO2 ABG HCO3 ABG O2 Saturation ABG Base Excess ABG Oxyhemoglobin ABG Sodium ABG Chloride ABG Glucose Oxyhemoglobin Carboxyhemoglobin Sodium Potassium Chloride Carbon Dioxide BUN Creatinine Glucose POC Glucose 128 H 159 H 69 L Hemoglobin A1c Magnesium Ferritin AST ALT Alkaline Phosphatase Lactate Dehydrogenase C-Reactive Protein Total Protein Albumin Arterial Blood Glucose Coronavirus (PCR) 04/28/21 04/28/21 04/29/21 12:22 21:11 06:05 WBC MCV MCH MCHC RDW Lymph % (Auto) [place] % (Auto) Eos % (Auto) Lymph # (Auto) [place] # (Auto) Eos # (Auto) Baso # (Auto) Seg Neutrophils % Seg Neuts % (Manual) Lymphocytes % (Manual) Seg Neutrophils # Seg Neutrophils # Man Lymphocytes # (Manual) D-Dimer ABG pH POC ABG pCO2 POC ABG pO2 ABG pO2 ABG HCO3 ABG O2 Saturation ABG Base Excess ABG Oxyhemoglobin ABG Sodium ABG Chloride ABG Glucose Oxyhemoglobin Carboxyhemoglobin Sodium 132 L Potassium Chloride 94.4 L Carbon Dioxide BUN Creatinine 0.2 L D Glucose 140 H POC Glucose 141 H 171 H Hemoglobin A1c Magnesium Ferritin AST ALT Alkaline Phosphatase Lactate Dehydrogenase C-Reactive Protein Total Protein Albumin Arterial Blood Glucose Coronavirus (PCR) 04/29/21 04/29/21 04/29/21 06:05 07:24 11:36 WBC MCV MCH MCHC 35 H RDW 15.9 H Lymph % (Auto) [place] % (Auto) Eos % (Auto) Lymph # (Auto) [place] # (Auto) Eos # (Auto) Baso # (Auto) Seg Neutrophils % Seg Neuts % (Manual) Lymphocytes % (Manual) Seg Neutrophils # Seg Neutrophils # Man Lymphocytes # (Manual) D-Dimer ABG pH POC ABG pCO2 POC ABG pO2 ABG pO2 ABG HCO3 ABG O2 Saturation ABG Base Excess ABG Oxyhemoglobin ABG Sodium ABG Chloride ABG Glucose Oxyhemoglobin Carboxyhemoglobin Sodium Potassium Chloride Carbon Dioxide BUN Creatinine Glucose POC Glucose 141 H 220 H Hemoglobin A1c Magnesium Ferritin AST ALT Alkaline Phosphatase Lactate Dehydrogenase C-Reactive Protein Total Protein Albumin Arterial Blood Glucose Coronavirus (PCR) 04/29/21 04/29/21 04/29/21 14:23 15:30 17:06 WBC MCV MCH MCHC RDW Lymph % (Auto) [place] % (Auto) Eos % (Auto) Lymph # (Auto) [place] # (Auto) Eos # (Auto) Baso # (Auto) Seg Neutrophils % Seg Neuts % (Manual) Lymphocytes % (Manual) Seg Neutrophils # Seg Neutrophils # Man Lymphocytes # (Manual) D-Dimer ABG pH POC ABG pCO2 POC ABG pO2 ABG pO2 52.6 L ABG HCO3 ABG O2 Saturation 86.4 L ABG Base Excess ABG Oxyhemoglobin ABG Sodium ABG Chloride ABG Glucose Oxyhemoglobin 84.6 L Carboxyhemoglobin Sodium Potassium Chloride Carbon Dioxide BUN Creatinine Glucose POC Glucose 173 H 158 H Hemoglobin A1c Magnesium Ferritin AST ALT Alkaline Phosphatase Lactate Dehydrogenase C-Reactive Protein Total Protein Albumin Arterial Blood Glucose Coronavirus (PCR) 04/29/21 04/30/21 04/30/21 21:27 07:16 08:00 WBC MCV MCH MCHC RDW 16.1 H Lymph % (Auto) [place] % (Auto) Eos % (Auto) Lymph # (Auto) [place] # (Auto) Eos # (Auto) Baso # (Auto) Seg Neutrophils % Seg Neuts % (Manual) Lymphocytes % (Manual) Seg Neutrophils # Seg Neutrophils # Man Lymphocytes # (Manual) D-Dimer ABG pH POC ABG pCO2 POC ABG pO2 ABG pO2 ABG HCO3 ABG O2 Saturation ABG Base Excess ABG Oxyhemoglobin ABG Sodium ABG Chloride ABG Glucose Oxyhemoglobin Carboxyhemoglobin Sodium Potassium Chloride Carbon Dioxide BUN Creatinine Glucose POC Glucose 244 H 175 H Hemoglobin A1c Magnesium Ferritin AST ALT Alkaline Phosphatase Lactate Dehydrogenase C-Reactive Protein Total Protein Albumin Arterial Blood Glucose Coronavirus (PCR) 04/30/21 04/30/21 04/30/21 08:00 08:00 11:03 WBC MCV MCH MCHC RDW Lymph % (Auto) [place] % (Auto) Eos % (Auto) Lymph # (Auto) [place] # (Auto) Eos # (Auto) Baso # (Auto) Seg Neutrophils % Seg Neuts % (Manual) Lymphocytes % (Manual) Seg Neutrophils # Seg Neutrophils # Man Lymphocytes # (Manual) D-Dimer 1796.87 H ABG pH POC ABG pCO2 POC ABG pO2 ABG pO2 ABG HCO3 ABG O2 Saturation ABG Base Excess ABG Oxyhemoglobin ABG Sodium ABG Chloride ABG Glucose Oxyhemoglobin Carboxyhemoglobin Sodium 135 L Potassium Chloride 96.3 L Carbon Dioxide BUN Creatinine 0.2 L Glucose 153 H POC Glucose 183 H Hemoglobin A1c Magnesium Ferritin AST 41 H ALT 76 H Alkaline Phosphatase 160 H Lactate Dehydrogenase 522 H C-Reactive Protein Total Protein 6.1 L Albumin 3.1 L Arterial Blood Glucose Coronavirus (PCR) 04/30/21 04/30/21 05/01/21 17:04 22:17 05:39 WBC MCV MCH MCHC RDW Lymph % (Auto) [place] % (Auto) Eos % (Auto) Lymph # (Auto) [place] # (Auto) Eos # (Auto) Baso # (Auto) Seg Neutrophils % Seg Neuts % (Manual) Lymphocytes % (Manual) Seg Neutrophils # Seg Neutrophils # Man Lymphocytes # (Manual) D-Dimer ABG pH POC ABG pCO2 POC ABG pO2 ABG pO2 ABG HCO3 ABG O2 Saturation ABG Base Excess ABG Oxyhemoglobin ABG Sodium ABG Chloride ABG Glucose Oxyhemoglobin Carboxyhemoglobin Sodium 133 L Potassium Chloride 92.1 L Carbon Dioxide BUN 24 H Creatinine 0.4 L D Glucose 269 H POC Glucose 167 H 208 H Hemoglobin A1c Magnesium Ferritin AST ALT 66 H Alkaline Phosphatase 142 H Lactate Dehydrogenase C-Reactive Protein Total Protein Albumin 3.2 L Arterial Blood Glucose Coronavirus (PCR) 05/01/21 05/01/21 05/01/21 05:39 05:39 07:45 WBC MCV MCH MCHC RDW 16.0 H Lymph % (Auto) [place] % (Auto) Eos % (Auto) Lymph # (Auto) [place] # (Auto) Eos # (Auto) Baso # (Auto) Seg Neutrophils % Seg Neuts % (Manual) Lymphocytes % (Manual) Seg Neutrophils # Seg Neutrophils # Man Lymphocytes # (Manual) D-Dimer 3984.95 H ABG pH POC ABG pCO2 POC ABG pO2 ABG pO2 ABG HCO3 ABG O2 Saturation ABG Base Excess ABG Oxyhemoglobin ABG Sodium ABG Chloride ABG Glucose Oxyhemoglobin Carboxyhemoglobin Sodium Potassium Chloride Carbon Dioxide BUN Creatinine Glucose POC Glucose 229 H Hemoglobin A1c Magnesium Ferritin AST ALT Alkaline Phosphatase Lactate Dehydrogenase C-Reactive Protein Total Protein Albumin Arterial Blood Glucose Coronavirus (PCR) 05/01/21 05/01/21 05/01/21 12:10 15:46 21:06 WBC MCV MCH MCHC RDW Lymph % (Auto) [place] % (Auto) Eos % (Auto) Lymph # (Auto) [place] # (Auto) Eos # (Auto) Baso # (Auto) Seg Neutrophils % Seg Neuts % (Manual) Lymphocytes % (Manual) Seg Neutrophils # Seg Neutrophils # Man Lymphocytes # (Manual) D-Dimer ABG pH POC ABG pCO2 POC ABG pO2 ABG pO2 ABG HCO3 ABG O2 Saturation ABG Base Excess ABG Oxyhemoglobin ABG Sodium ABG Chloride ABG Glucose Oxyhemoglobin Carboxyhemoglobin Sodium Potassium Chloride Carbon Dioxide BUN Creatinine Glucose POC Glucose 296 H 279 H 232 H Hemoglobin A1c Magnesium Ferritin AST ALT Alkaline Phosphatase Lactate Dehydrogenase C-Reactive Protein Total Protein Albumin Arterial Blood Glucose Coronavirus (PCR) 05/02/21 05/02/2105/02/21 04:55 04:55 04:55 WBC MCV MCH MCHC RDW 16.1 H Lymph % (Auto) [place] % (Auto) Eos % (Auto) Lymph # (Auto) [place] # (Auto) Eos # (Auto) Baso # (Auto) Seg Neutrophils % Seg Neuts % (Manual) Lymphocytes % (Manual) Seg Neutrophils # Seg Neutrophils # Man Lymphocytes # (Manual) D-Dimer 1401.08 H ABG pH POC ABG pCO2 POC ABG pO2 ABG pO2 ABG HCO3 ABG O2 Saturation ABG Base Excess ABG Oxyhemoglobin ABG Sodium ABG Chloride ABG Glucose Oxyhemoglobin Carboxyhemoglobin Sodium 131 L Potassium Chloride 95.5 L Carbon Dioxide BUN 20 H Creatinine 0.3 L Glucose 288 H POC Glucose Hemoglobin A1c Magnesium Ferritin AST ALT Alkaline Phosphatase Lactate Dehydrogenase C-Reactive Protein Total Protein 6.0 L Albumin 3.1 L Arterial Blood Glucose Coronavirus (PCR) 05/02/21 05/02/21 05/02/21 07:53 11:45 15:25 WBC MCV MCH MCHC RDW Lymph % (Auto) [place] % (Auto) Eos % (Auto) Lymph # (Auto) [place] # (Auto) Eos # (Auto) Baso # (Auto) Seg Neutrophils % Seg Neuts % (Manual) Lymphocytes % (Manual) Seg Neutrophils # Seg Neutrophils # Man Lymphocytes # (Manual) D-Dimer ABG pH POC ABG pCO2 POC ABG pO2 ABG pO2 ABG HCO3 ABG O2 Saturation ABG Base Excess ABG Oxyhemoglobin ABG Sodium ABG Chloride ABG Glucose Oxyhemoglobin Carboxyhemoglobin Sodium Potassium Chloride Carbon Dioxide BUN Creatinine Glucose POC Glucose 180 H 228 H 275 H Hemoglobin A1c Magnesium Ferritin AST ALT Alkaline Phosphatase Lactate Dehydrogenase C-Reactive Protein Total Protein Albumin Arterial Blood Glucose Coronavirus (PCR) 05/02/21 05/03/21 05/03/21 22:56 04:30 04:49 WBC MCV MCH MCHC RDW Lymph % (Auto) [place] % (Auto) Eos % (Auto) Lymph # (Auto) [place] # (Auto) Eos # (Auto) Baso # (Auto) Seg Neutrophils % Seg Neuts % (Manual) Lymphocytes % (Manual) Seg Neutrophils # Seg Neutrophils # Man Lymphocytes # (Manual) D-Dimer ABG pH 7.229 L POC ABG pCO2 POC ABG pO2 65.3 L ABG pO2 ABG HCO3 ABG O2 Saturation ABG Base Excess ABG Oxyhemoglobin 87.8 L ABG Sodium 133.0 L ABG Chloride 97.0 L ABG Glucose 403 H Oxyhemoglobin Carboxyhemoglobin Sodium 130 L Potassium Chloride 94.9 L Carbon Dioxide BUN 20 H Creatinine 0.5 L D Glucose 359 H POC Glucose 293 H Hemoglobin A1c Magnesium Ferritin AST 54 H ALT 75 H Alkaline Phosphatase 138 H Lactate Dehydrogenase C-Reactive Protein Total Protein Albumin 3.6 L Arterial Blood Glucose 403 H Coronavirus (PCR) 05/03/21 05/03/21 05/03/21 05:27 11:26 17:57 WBC MCV MCH MCHC RDW Lymph % (Auto) [place] % (Auto) Eos % (Auto) Lymph # (Auto) [place] # (Auto) Eos # (Auto) Baso # (Auto) Seg Neutrophils % Seg Neuts % (Manual) Lymphocytes % (Manual) Seg Neutrophils # Seg Neutrophils # Man Lymphocytes # (Manual) D-Dimer ABG pH POC ABG pCO2 POC ABG pO2 ABG pO2 ABG HCO3 ABG O2 Saturation ABG Base Excess ABG Oxyhemoglobin ABG Sodium ABG Chloride ABG Glucose Oxyhemoglobin Carboxyhemoglobin Sodium Potassium Chloride Carbon Dioxide BUN Creatinine Glucose POC Glucose 361 H 297 H 226 H Hemoglobin A1c Magnesium Ferritin AST ALT Alkaline Phosphatase Lactate Dehydrogenase C-Reactive Protein Total Protein Albumin Arterial Blood Glucose Coronavirus (PCR) 05/03/21 05/04/21 05/04/21 23:12 05:12 07:30 WBC MCV MCH MCHC RDW Lymph % (Auto) [place] % (Auto) Eos % (Auto) Lymph # (Auto) [place] # (Auto) Eos # (Auto) Baso # (Auto) Seg Neutrophils % Seg Neuts % (Manual) Lymphocytes % (Manual) Seg Neutrophils # Seg Neutrophils # Man Lymphocytes # (Manual) D-Dimer ABG pH POC ABG pCO2 POC ABG pO2 ABG pO2 ABG HCO3 ABG O2 Saturation ABG Base Excess ABG Oxyhemoglobin ABG Sodium ABG Chloride ABG Glucose Oxyhemoglobin Carboxyhemoglobin Sodium Potassium Chloride Carbon Dioxide BUN Creatinine Glucose POC Glucose 282 H 285 H 254 H Hemoglobin A1c Magnesium Ferritin AST ALT Alkaline Phosphatase Lactate Dehydrogenase C-Reactive Protein Total Protein Albumin Arterial Blood Glucose Coronavirus (PCR) 05/04/21 05/04/21 05/04/21 08:58 11:45 16:07 WBC MCV MCH MCHC RDW Lymph % (Auto) [place] % (Auto) Eos % (Auto) Lymph # (Auto) [place] # (Auto) Eos # (Auto) Baso # (Auto) Seg Neutrophils % Seg Neuts % (Manual) Lymphocytes % (Manual) Seg Neutrophils # Seg Neutrophils # Man Lymphocytes # (Manual) D-Dimer ABG pH POC ABG pCO2 POC ABG pO2 ABG pO2 ABG HCO3 ABG O2 Saturation ABG Base Excess ABG Oxyhemoglobin ABG Sodium ABG Chloride ABG Glucose Oxyhemoglobin Carboxyhemoglobin Sodium 134 L Potassium Chloride Carbon Dioxide BUN 20 H Creatinine 0.3 L Glucose 267 H POC Glucose 244 H 297 H Hemoglobin A1c Magnesium Ferritin AST ALT Alkaline Phosphatase Lactate Dehydrogenase C-Reactive Protein Total Protein 6.0 L Albumin 3.2 L Arterial Blood Glucose Coronavirus (PCR) 05/04/21 05/05/21 05/05/21 23:32 05:00 05:13 WBC MCV MCH MCHC RDW Lymph % (Auto) [place] % (Auto) Eos % (Auto) Lymph # (Auto) [place] # (Auto) Eos # (Auto) Baso # (Auto) Seg Neutrophils % Seg Neuts % (Manual) Lymphocytes % (Manual) Seg Neutrophils # Seg Neutrophils # Man Lymphocytes # (Manual) D-Dimer ABG pH POC ABG pCO2 POC ABG pO2 ABG pO2 ABG HCO3 ABG O2 Saturation ABG Base Excess ABG Oxyhemoglobin ABG Sodium ABG Chloride ABG Glucose Oxyhemoglobin Carboxyhemoglobin Sodium 132 L Potassium Chloride 96.4 L Carbon Dioxide BUN 22 H Creatinine 0.3 L Glucose 228 H POC Glucose 154 H 260 H Hemoglobin A1c Magnesium Ferritin AST ALT 67 H Alkaline Phosphatase Lactate Dehydrogenase C-Reactive Protein Total Protein 6.1 L Albumin 3.2 L Arterial Blood Glucose Coronavirus (PCR) 05/05/21 05/05/21 05/05/21 11:32 17:49 23:07 WBC MCV MCH MCHC RDW Lymph % (Auto) [place] % (Auto) Eos % (Auto) Lymph # (Auto) [place] # (Auto) Eos # (Auto) Baso # (Auto) Seg Neutrophils % Seg Neuts % (Manual) Lymphocytes % (Manual) Seg Neutrophils # Seg Neutrophils # Man Lymphocytes # (Manual) D-Dimer ABG pH POC ABG pCO2 POC ABG pO2 ABG pO2 ABG HCO3 ABG O2 Saturation ABG Base Excess ABG Oxyhemoglobin ABG Sodium ABG Chloride ABG Glucose Oxyhemoglobin Carboxyhemoglobin Sodium Potassium Chloride Carbon Dioxide BUN Creatinine Glucose POC Glucose 279 H 308 H 213 H Hemoglobin A1c Magnesium Ferritin AST ALT Alkaline Phosphatase Lactate Dehydrogenase C-Reactive Protein Total Protein Albumin Arterial Blood Glucose Coronavirus (PCR) 05/06/21 05/06/21 05/06/21 05:00 05:00 05:20 WBC MCV MCH MCHC RDW 16.8 H Lymph % (Auto) [place] % (Auto) Eos % (Auto) Lymph # (Auto) [place] # (Auto) Eos # (Auto) Baso # (Auto) Seg Neutrophils % Seg Neuts % (Manual) 99.0 H Lymphocytes % (Manual) Seg Neutrophils # Seg Neutrophils # Man 10.9 H Lymphocytes # (Manual) 0.0 L D-Dimer ABG pH POC ABG pCO2 POC ABG pO2 ABG pO2 ABG HCO3 ABG O2 Saturation ABG Base Excess ABG Oxyhemoglobin ABG Sodium ABG Chloride ABG Glucose Oxyhemoglobin Carboxyhemoglobin Sodium 133 L Potassium Chloride Carbon Dioxide BUN 21 H Creatinine 0.3 L Glucose 259 H POC Glucose 308 H Hemoglobin A1c Magnesium Ferritin AST ALT Alkaline Phosphatase Lactate Dehydrogenase C-Reactive Protein Total Protein Albumin 3.2 L Arterial Blood Glucose Coronavirus (PCR) 05/06/21 05/06/21 05/06/21 11:24 17:54 21:32 WBC MCV MCH MCHC RDW Lymph % (Auto) [place] % (Auto) Eos % (Auto) Lymph # (Auto) [place] # (Auto) Eos # (Auto) Baso # (Auto) Seg Neutrophils % Seg Neuts % (Manual) Lymphocytes % (Manual) Seg Neutrophils # Seg Neutrophils # Man Lymphocytes # (Manual) D-Dimer ABG pH POC ABG pCO2 POC ABG pO2 ABG pO2 ABG HCO3 ABG O2 Saturation ABG Base Excess ABG Oxyhemoglobin ABG Sodium ABG Chloride ABG Glucose Oxyhemoglobin Carboxyhemoglobin Sodium Potassium Chloride Carbon Dioxide BUN Creatinine Glucose POC Glucose 262 H 124 H 246 H Hemoglobin A1c Magnesium Ferritin AST ALT Alkaline Phosphatase Lactate Dehydrogenase C-Reactive Protein Total Protein Albumin Arterial Blood Glucose Coronavirus (PCR) 05/06/21 05/07/21 05/07/21 23:10 04:54 04:54 WBC MCV MCH MCHC RDW Lymph % (Auto) [place] % (Auto) Eos % (Auto) Lymph # (Auto) [place] # (Auto) Eos # (Auto) Baso # (Auto) Seg Neutrophils % Seg Neuts % (Manual) Lymphocytes % (Manual) Seg Neutrophils # Seg Neutrophils # Man Lymphocytes # (Manual) D-Dimer 1609.28 H ABG pH POC ABG pCO2 POC ABG pO2 ABG pO2 ABG HCO3 ABG O2 Saturation ABG Base Excess ABG Oxyhemoglobin ABG Sodium ABG Chloride ABG Glucose Oxyhemoglobin Carboxyhemoglobin Sodium 136 L Potassium Chloride Carbon Dioxide BUN 23 H Creatinine 0.3 L Glucose 110 H POC Glucose 249 H Hemoglobin A1c Magnesium Ferritin AST ALT Alkaline Phosphatase Lactate Dehydrogenase C-Reactive Protein Total Protein 6.2 L Albumin 3.0 L Arterial Blood Glucose Coronavirus (PCR) 05/07/21 05/07/21 05/07/21 04:54 04:54 11:41 WBC MCV MCH MCHC RDW Lymph % (Auto) [place] % (Auto) Eos % (Auto) Lymph # (Auto) [place] # (Auto) Eos # (Auto) Baso # (Auto) Seg Neutrophils % Seg Neuts % (Manual) Lymphocytes % (Manual) Seg Neutrophils # Seg Neutrophils # Man Lymphocytes # (Manual) D-Dimer ABG pH POC ABG pCO2 POC ABG pO2 ABG pO2 ABG HCO3 ABG O2 Saturation ABG Base Excess ABG Oxyhemoglobin ABG Sodium ABG Chloride ABG Glucose Oxyhemoglobin Carboxyhemoglobin Sodium Potassium Chloride Carbon Dioxide BUN Creatinine Glucose POC Glucose 118 H Hemoglobin A1c Magnesium Ferritin 296.1 H AST ALT Alkaline Phosphatase Lactate Dehydrogenase 724 H C-Reactive Protein Total Protein Albumin Arterial Blood Glucose Coronavirus (PCR) 05/07/21 05/07/21 05/08/21 16:43 22:34 06:44 WBC MCV MCH MCHC RDW Lymph % (Auto) [place] % (Auto) Eos % (Auto) Lymph # (Auto) [place] # (Auto) Eos # (Auto) Baso # (Auto) Seg Neutrophils % Seg Neuts % (Manual) Lymphocytes % (Manual) Seg Neutrophils # Seg Neutrophils # Man Lymphocytes # (Manual) D-Dimer ABG pH POC ABG pCO2 POC ABG pO2 ABG pO2 ABG HCO3 ABG O2 Saturation ABG Base Excess ABG Oxyhemoglobin ABG Sodium ABG Chloride ABG Glucose Oxyhemoglobin Carboxyhemoglobin Sodium Potassium Chloride Carbon Dioxide BUN Creatinine Glucose POC Glucose 159 H 233 H 235 H Hemoglobin A1c Magnesium Ferritin AST ALT Alkaline Phosphatase Lactate Dehydrogenase C-Reactive Protein Total Protein Albumin Arterial Blood Glucose Coronavirus (PCR) 05/08/21 05/08/21 05/08/21 07:49 11:56 17:13 WBC MCV MCH MCHC RDW Lymph % (Auto) [place] % (Auto) Eos % (Auto) Lymph # (Auto) [place] # (Auto) Eos # (Auto) Baso # (Auto) Seg Neutrophils % Seg Neuts % (Manual) Lymphocytes % (Manual) Seg Neutrophils # Seg Neutrophils # Man Lymphocytes # (Manual) D-Dimer ABG pH POC ABG pCO2 POC ABG pO2 ABG pO2 ABG HCO3 ABG O2 Saturation ABG Base Excess ABG Oxyhemoglobin ABG Sodium ABG Chloride ABG Glucose Oxyhemoglobin Carboxyhemoglobin Sodium Potassium Chloride Carbon Dioxide BUN Creatinine Glucose POC Glucose 219 H 184 H 182 H Hemoglobin A1c Magnesium Ferritin AST ALT Alkaline Phosphatase Lactate Dehydrogenase C-Reactive Protein Total Protein Albumin Arterial Blood Glucose Coronavirus (PCR) 05/08/21 05/09/21 05/09/21 23:35 05:20 05:20 WBC MCV MCH MCHC RDW Lymph % (Auto) [place] % (Auto) Eos % (Auto) Lymph # (Auto) [place] # (Auto) Eos # (Auto) Baso # (Auto) Seg Neutrophils % Seg Neuts % (Manual) Lymphocytes % (Manual) Seg Neutrophils # Seg Neutrophils # Man Lymphocytes # (Manual) D-Dimer 1003.87 H ABG pH POC ABG pCO2 POC ABG pO2 ABG pO2 ABG HCO3 ABG O2 Saturation ABG Base Excess ABG Oxyhemoglobin ABG Sodium ABG Chloride ABG Glucose Oxyhemoglobin Carboxyhemoglobin Sodium Potassium Chloride Carbon Dioxide BUN Creatinine Glucose POC Glucose 198 H Hemoglobin A1c Magnesium Ferritin 378.7 H AST ALT Alkaline Phosphatase Lactate Dehydrogenase C-Reactive Protein Total Protein Albumin Arterial Blood Glucose Coronavirus (PCR) 05/09/21 05/09/21 05/09/21 05:20 06:04 12:53 WBC MCV MCH MCHC RDW Lymph % (Auto) [place] % (Auto) Eos % (Auto) Lymph # (Auto) [place] # (Auto) Eos # (Auto) Baso # (Auto) Seg Neutrophils % Seg Neuts % (Manual) Lymphocytes % (Manual) Seg Neutrophils # Seg Neutrophils # Man Lymphocytes # (Manual) D-Dimer ABG pH POC ABG pCO2 POC ABG pO2 ABG pO2 ABG HCO3 ABG O2 Saturation ABG Base Excess ABG Oxyhemoglobin ABG Sodium ABG Chloride ABG Glucose Oxyhemoglobin Carboxyhemoglobin Sodium Potassium Chloride Carbon Dioxide BUN Creatinine Glucose POC Glucose 159 H 180 H Hemoglobin A1c Magnesium Ferritin AST ALT Alkaline Phosphatase Lactate Dehydrogenase 558 H C-Reactive Protein 2.40 H Total Protein Albumin Arterial Blood Glucose Coronavirus (PCR) 05/09/21 05/09/21 05/10/21 16:43 21:27 10:18 WBC MCV MCH MCHC RDW Lymph % (Auto) [place] % (Auto) Eos % (Auto) Lymph # (Auto) [place] # (Auto) Eos # (Auto) Baso # (Auto) Seg Neutrophils % Seg Neuts % (Manual) Lymphocytes % (Manual) Seg Neutrophils # Seg Neutrophils # Man Lymphocytes # (Manual) D-Dimer ABG pH POC ABG pCO2 POC ABG pO2 ABG pO2 ABG HCO3 ABG O2 Saturation ABG Base Excess ABG Oxyhemoglobin ABG Sodium ABG Chloride ABG Glucose Oxyhemoglobin Carboxyhemoglobin Sodium Potassium Chloride Carbon Dioxide BUN Creatinine Glucose POC Glucose 212 H 285 H 261 H Hemoglobin A1c Magnesium Ferritin AST ALT Alkaline Phosphatase Lactate Dehydrogenase C-Reactive Protein Total Protein Albumin Arterial Blood Glucose Coronavirus (PCR) 05/10/21 05/10/21 05/11/21 17:58 18:02 00:29 WBC MCV MCH MCHC RDW Lymph % (Auto) [place] % (Auto) Eos % (Auto) Lymph # (Auto) [place] # (Auto) Eos # (Auto) Baso # (Auto) Seg Neutrophils % Seg Neuts % (Manual) Lymphocytes % (Manual) Seg Neutrophils # Seg Neutrophils # Man Lymphocytes # (Manual) D-Dimer ABG pH POC ABG pCO2 POC ABG pO2 ABG pO2 ABG HCO3 ABG O2 Saturation ABG Base Excess ABG Oxyhemoglobin ABG Sodium ABG Chloride ABG Glucose Oxyhemoglobin Carboxyhemoglobin Sodium Potassium Chloride Carbon Dioxide BUN Creatinine Glucose POC Glucose 213 H 179 H 149 H Hemoglobin A1c Magnesium Ferritin AST ALT Alkaline Phosphatase Lactate Dehydrogenase C-Reactive Protein Total Protein Albumin Arterial Blood Glucose Coronavirus (PCR) 05/11/21 05/11/21 05/11/21 05:22 11:32 17:00 WBC 14.9 H MCV MCH MCHC RDW 18.9 H Lymph % (Auto) 4.9 L [place] % (Auto) Eos % (Auto) Lymph # (Auto) 0.7 L [place] # (Auto) Eos # (Auto) Baso # (Auto) 0.2 H Seg Neutrophils % Seg Neuts % (Manual) Lymphocytes % (Manual) Seg Neutrophils # 13.3 H Seg Neutrophils # Man Lymphocytes # (Manual) D-Dimer ABG pH POC ABG pCO2 POC ABG pO2 ABG pO2 ABG HCO3 ABG O2 Saturation ABG Base Excess ABG Oxyhemoglobin ABG Sodium ABG Chloride ABG Glucose Oxyhemoglobin Carboxyhemoglobin Sodium Potassium Chloride Carbon Dioxide BUN Creatinine Glucose POC Glucose 162 H 179 H Hemoglobin A1c Magnesium Ferritin AST ALT Alkaline Phosphatase Lactate Dehydrogenase C-Reactive Protein Total Protein Albumin Arterial Blood Glucose Coronavirus (PCR) 05/11/21 05/11/21 05/11/21 17:00 17:33 22:03 WBC MCV MCH MCHC RDW Lymph % (Auto) [place] % (Auto) Eos % (Auto) Lymph # (Auto) [place] # (Auto) Eos # (Auto) Baso # (Auto) Seg Neutrophils % Seg Neuts % (Manual) Lymphocytes % (Manual) Seg Neutrophils # Seg Neutrophils # Man Lymphocytes # (Manual) D-Dimer ABG pH POC ABG pCO2 POC ABG pO2 ABG pO2 ABG HCO3 ABG O2 Saturation ABG Base Excess ABG Oxyhemoglobin ABG Sodium ABG Chloride ABG Glucose Oxyhemoglobin Carboxyhemoglobin Sodium 135 L Potassium Chloride 97.3 L Carbon Dioxide BUN 21 H Creatinine 0.3 L Glucose 133 H POC Glucose 140 H 282 H Hemoglobin A1c Magnesium Ferritin AST ALT 60 H Alkaline Phosphatase Lactate Dehydrogenase C-Reactive Protein Total Protein Albumin 3.1 L Arterial Blood Glucose Coronavirus (PCR) 05/12/21 05/12/21 05/12/21 04:05 04:05 04:05 WBC MCV MCH MCHC RDW 18.4 H Lymph % (Auto) [place] % (Auto) Eos % (Auto) Lymph # (Auto) [place] # (Auto) Eos # (Auto) Baso # (Auto) Seg Neutrophils % Seg Neuts % (Manual) 94.0 H Lymphocytes % (Manual) 4.0 L Seg Neutrophils # Seg Neutrophils # Man Lymphocytes # (Manual) 0.3 L D-Dimer ABG pH POC ABG pCO2 POC ABG pO2 ABG pO2 ABG HCO3 ABG O2 Saturation ABG Base Excess ABG Oxyhemoglobin ABG Sodium ABG Chloride ABG Glucose Oxyhemoglobin Carboxyhemoglobin Sodium 136 L Potassium Chloride Carbon Dioxide BUN 18 H Creatinine 0.2 L Glucose 142 H POC Glucose Hemoglobin A1c Magnesium Ferritin 350.7 H AST ALT Alkaline Phosphatase Lactate Dehydrogenase 546 H C-Reactive Protein Total Protein 6.1 L Albumin 3.0 L Arterial Blood Glucose Coronavirus (PCR) 05/12/21 05/12/21 05/12/21 05:11 11:17 16:27 WBC MCV MCH MCHC RDW Lymph % (Auto) [place] % (Auto) Eos % (Auto) Lymph # (Auto) [place] # (Auto) Eos # (Auto) Baso # (Auto) Seg Neutrophils % Seg Neuts % (Manual) Lymphocytes % (Manual) Seg Neutrophils # Seg Neutrophils # Man Lymphocytes # (Manual) D-Dimer ABG pH POC ABG pCO2 POC ABG pO2 ABG pO2 ABG HCO3 ABG O2 Saturation ABG Base Excess ABG Oxyhemoglobin ABG Sodium ABG Chloride ABG Glucose Oxyhemoglobin Carboxyhemoglobin Sodium Potassium Chloride Carbon Dioxide BUN Creatinine Glucose POC Glucose 152 H 190 H 261 H Hemoglobin A1c Magnesium Ferritin AST ALT Alkaline Phosphatase Lactate Dehydrogenase C-Reactive Protein Total Protein Albumin Arterial Blood Glucose Coronavirus (PCR) 05/12/21 05/13/21 05/13/21 20:55 11:08 21:41 WBC MCV MCH MCHC RDW Lymph % (Auto) [place] % (Auto) Eos % (Auto) Lymph # (Auto) [place] # (Auto) Eos # (Auto) Baso # (Auto) Seg Neutrophils % Seg Neuts % (Manual) Lymphocytes % (Manual) Seg Neutrophils # Seg Neutrophils # Man Lymphocytes # (Manual) D-Dimer ABG pH POC ABG pCO2 POC ABG pO2 ABG pO2 ABG HCO3 ABG O2 Saturation ABG Base Excess ABG Oxyhemoglobin ABG Sodium ABG Chloride ABG Glucose Oxyhemoglobin Carboxyhemoglobin Sodium Potassium Chloride Carbon Dioxide BUN Creatinine Glucose POC Glucose 231 H 106 H 174 H Hemoglobin A1c Magnesium Ferritin AST ALT Alkaline Phosphatase Lactate Dehydrogenase C-Reactive Protein Total Protein Albumin Arterial Blood Glucose Coronavirus (PCR) 05/14/21 05/14/21 05/14/21 00:53 02:23 06:06 WBC MCV MCH MCHC RDW Lymph % (Auto) [place] % (Auto) Eos % (Auto) Lymph # (Auto) [place] # (Auto) Eos # (Auto) Baso # (Auto) Seg Neutrophils % Seg Neuts % (Manual) Lymphocytes % (Manual) Seg Neutrophils # Seg Neutrophils # Man Lymphocytes # (Manual) D-Dimer ABG pH POC ABG pCO2 POC ABG pO2 ABG pO2 130.3 H ABG HCO3 30.6 H ABG O2 Saturation ABG Base Excess 4.9 H ABG Oxyhemoglobin ABG Sodium ABG Chloride ABG Glucose Oxyhemoglobin Carboxyhemoglobin Sodium Potassium Chloride Carbon Dioxide BUN Creatinine Glucose POC Glucose 229 H 119 H Hemoglobin A1c Magnesium Ferritin AST ALT Alkaline Phosphatase Lactate Dehydrogenase C-Reactive Protein Total Protein Albumin Arterial Blood Glucose Coronavirus (PCR) 05/14/21 05/14/21 05/14/21 07:13 07:13 07:13 WBC MCV MCH MCHC RDW Lymph % (Auto) [place] % (Auto) Eos % (Auto) Lymph # (Auto) [place] # (Auto) Eos # (Auto) Baso # (Auto) Seg Neutrophils % Seg Neuts % (Manual) Lymphocytes % (Manual) Seg Neutrophils # Seg Neutrophils # Man Lymphocytes # (Manual) D-Dimer 712.80 H ABG pH POC ABG pCO2 POC ABG pO2 ABG pO2 ABG HCO3 ABG O2 Saturation ABG Base Excess ABG Oxyhemoglobin ABG Sodium ABG Chloride ABG Glucose Oxyhemoglobin Carboxyhemoglobin Sodium 133 L Potassium Chloride 95.5 L Carbon Dioxide 32 H BUN Creatinine 0.2 L Glucose 137 H POC Glucose Hemoglobin A1c Magnesium Ferritin 283.5 H AST ALT 63 H Alkaline Phosphatase Lactate Dehydrogenase 563 H C-Reactive Protein Total Protein 6.1 L Albumin 3.0 L Arterial Blood Glucose Coronavirus (PCR) 05/14/21 05/14/21 05/14/21 12:21 15:33 21:50 WBC MCV MCH MCHC RDW Lymph % (Auto) [place] % (Auto) Eos % (Auto) Lymph # (Auto) [place] # (Auto) Eos # (Auto) Baso # (Auto) Seg Neutrophils % Seg Neuts % (Manual) Lymphocytes % (Manual) Seg Neutrophils # Seg Neutrophils # Man Lymphocytes # (Manual) D-Dimer ABG pH POC ABG pCO2 POC ABG pO2 ABG pO2 ABG HCO3 ABG O2 Saturation ABG Base Excess ABG Oxyhemoglobin ABG Sodium ABG Chloride ABG Glucose Oxyhemoglobin Carboxyhemoglobin Sodium Potassium Chloride Carbon Dioxide BUN Creatinine Glucose POC Glucose 143 H 204 H 202 H Hemoglobin A1c Magnesium Ferritin AST ALT Alkaline Phosphatase Lactate Dehydrogenase C-Reactive Protein Total Protein Albumin Arterial Blood Glucose Coronavirus (PCR) 05/15/21 05/15/21 05/15/21 05:05 11:12 16:39 WBC MCV MCH MCHC RDW Lymph % (Auto) [place] % (Auto) Eos % (Auto) Lymph # (Auto) [place] # (Auto) Eos # (Auto) Baso # (Auto) Seg Neutrophils % Seg Neuts % (Manual) Lymphocytes % (Manual) Seg Neutrophils # Seg Neutrophils # Man Lymphocytes # (Manual) D-Dimer ABG pH POC ABG pCO2 POC ABG pO2 ABG pO2 ABG HCO3 ABG O2 Saturation ABG Base Excess ABG Oxyhemoglobin ABG Sodium ABG Chloride ABG Glucose Oxyhemoglobin Carboxyhemoglobin Sodium Potassium Chloride Carbon Dioxide BUN Creatinine Glucose POC Glucose 125 H 201 H 241 H Hemoglobin A1c Magnesium Ferritin AST ALT Alkaline Phosphatase Lactate Dehydrogenase C-Reactive Protein Total Protein Albumin Arterial Blood Glucose Coronavirus (PCR) 05/15/21 05/16/21 05/16/21 21:31 05:04 10:40 WBC MCV MCH MCHC RDW Lymph % (Auto) [place] % (Auto) Eos % (Auto) Lymph # (Auto) [place] # (Auto) Eos # (Auto) Baso # (Auto) Seg Neutrophils % Seg Neuts % (Manual) Lymphocytes % (Manual) Seg Neutrophils # Seg Neutrophils # Man Lymphocytes # (Manual) D-Dimer ABG pH POC ABG pCO2 POC ABG pO2 ABG pO2 ABG HCO3 ABG O2 Saturation ABG Base Excess ABG Oxyhemoglobin ABG Sodium ABG Chloride ABG Glucose Oxyhemoglobin Carboxyhemoglobin Sodium Potassium Chloride Carbon Dioxide BUN Creatinine Glucose POC Glucose 234 H 123 H 231 H Hemoglobin A1c Magnesium Ferritin AST ALT Alkaline Phosphatase Lactate Dehydrogenase C-Reactive Protein Total Protein Albumin Arterial Blood Glucose Coronavirus (PCR) 05/16/21 05/16/21 05/17/21 18:23 21:29 06:20 WBC MCV MCH MCHC RDW 18.8 H Lymph % (Auto) 10.2 L [place] % (Auto) Eos % (Auto) Lymph # (Auto) 0.8 L [place] # (Auto) Eos # (Auto) Baso # (Auto) Seg Neutrophils % 85.8 H Seg Neuts % (Manual) Lymphocytes % (Manual) Seg Neutrophils # Seg Neutrophils # Man Lymphocytes # (Manual) D-Dimer ABG pH POC ABG pCO2 POC ABG pO2 ABG pO2 ABG HCO3 ABG O2 Saturation ABG Base Excess ABG Oxyhemoglobin ABG Sodium ABG Chloride ABG Glucose Oxyhemoglobin Carboxyhemoglobin Sodium Potassium Chloride Carbon Dioxide BUN Creatinine Glucose POC Glucose 266 H 234 H Hemoglobin A1c Magnesium Ferritin AST ALT Alkaline Phosphatase Lactate Dehydrogenase C-Reactive Protein Total Protein Albumin Arterial Blood Glucose Coronavirus (PCR) 05/17/21 05/17/21 05/17/21 06:20 11:06 16:36 WBC MCV MCH MCHC RDW Lymph % (Auto) [place] % (Auto) Eos % (Auto) Lymph # (Auto) [place] # (Auto) Eos # (Auto) Baso # (Auto) Seg Neutrophils % Seg Neuts % (Manual) Lymphocytes % (Manual) Seg Neutrophils # Seg Neutrophils # Man Lymphocytes # (Manual) D-Dimer ABG pH POC ABG pCO2 POC ABG pO2 ABG pO2 ABG HCO3 ABG O2 Saturation ABG Base Excess ABG Oxyhemoglobin ABG Sodium ABG Chloride ABG Glucose Oxyhemoglobin Carboxyhemoglobin Sodium Potassium Chloride Carbon Dioxide 33 H BUN Creatinine 0.2 L Glucose 101 H POC Glucose 209 H 180 H Hemoglobin A1c Magnesium Ferritin AST ALT Alkaline Phosphatase Lactate Dehydrogenase C-Reactive Protein Total Protein Albumin Arterial Blood Glucose Coronavirus (PCR) 05/17/21 05/18/21 05/18/21 21:06 12:00 15:06 WBC MCV MCH MCHC RDW Lymph % (Auto) [place] % (Auto) Eos % (Auto) Lymph # (Auto) [place] # (Auto) Eos # (Auto) Baso # (Auto) Seg Neutrophils % Seg Neuts % (Manual) Lymphocytes % (Manual) Seg Neutrophils # Seg Neutrophils # Man Lymphocytes # (Manual) D-Dimer 874.02 H ABG pH POC ABG pCO2 POC ABG pO2 ABG pO2 ABG HCO3 ABG O2 Saturation ABG Base Excess ABG Oxyhemoglobin ABG Sodium ABG Chloride ABG Glucose Oxyhemoglobin Carboxyhemoglobin Sodium Potassium Chloride Carbon Dioxide BUN Creatinine Glucose POC Glucose 256 H 139 H Hemoglobin A1c Magnesium Ferritin AST ALT Alkaline Phosphatase Lactate Dehydrogenase C-Reactive Protein Total Protein Albumin Arterial Blood Glucose Coronavirus (PCR) 05/18/21 05/18/21 05/18/21 15:06 15:06 16:08 WBC MCV MCH MCHC RDW Lymph % (Auto) [place] % (Auto) Eos % (Auto) Lymph # (Auto) [place] # (Auto) Eos # (Auto) Baso # (Auto) Seg Neutrophils % Seg Neuts % (Manual) Lymphocytes % (Manual) Seg Neutrophils # Seg Neutrophils # Man Lymphocytes # (Manual) D-Dimer ABG pH POC ABG pCO2 POC ABG pO2 ABG pO2 ABG HCO3 ABG O2 Saturation ABG Base Excess ABG Oxyhemoglobin ABG Sodium ABG Chloride ABG Glucose Oxyhemoglobin Carboxyhemoglobin Sodium Potassium Chloride Carbon Dioxide BUN Creatinine Glucose POC Glucose 178 H Hemoglobin A1c Magnesium Ferritin 289.6 H AST ALT Alkaline Phosphatase Lactate Dehydrogenase 605 H C-Reactive Protein Total Protein Albumin Arterial Blood Glucose Coronavirus (PCR) 05/18/21 05/19/21 05/19/21 21:22 11:57 15:26 WBC MCV MCH MCHC RDW Lymph % (Auto) [place] % (Auto) Eos % (Auto) Lymph # (Auto) [place] # (Auto) Eos # (Auto) Baso # (Auto) Seg Neutrophils % Seg Neuts % (Manual) Lymphocytes % (Manual) Seg Neutrophils # Seg Neutrophils # Man Lymphocytes # (Manual) D-Dimer ABG pH POC ABG pCO2 POC ABG pO2 ABG pO2 ABG HCO3 ABG O2 Saturation ABG Base Excess ABG Oxyhemoglobin ABG Sodium ABG Chloride ABG Glucose Oxyhemoglobin Carboxyhemoglobin Sodium Potassium Chloride Carbon Dioxide BUN Creatinine Glucose POC Glucose 241 H 201 H 209 H Hemoglobin A1c Magnesium Ferritin AST ALT Alkaline Phosphatase Lactate Dehydrogenase C-Reactive Protein Total Protein Albumin Arterial Blood Glucose Coronavirus (PCR) 05/19/21 05/20/21 05/20/21 20:59 07:38 08:01 WBC MCV MCH MCHC RDW 19.7 H Lymph % (Auto) 8.3 L [place] % (Auto) Eos % (Auto) Lymph # (Auto) 0.8 L [place] # (Auto) Eos # (Auto) Baso # (Auto) Seg Neutrophils % 88.6 H Seg Neuts % (Manual) Lymphocytes % (Manual) Seg Neutrophils # 8.4 H Seg Neutrophils # Man Lymphocytes # (Manual) D-Dimer ABG pH POC ABG pCO2 POC ABG pO2 ABG pO2 ABG HCO3 ABG O2 Saturation ABG Base Excess ABG Oxyhemoglobin ABG Sodium ABG Chloride ABG Glucose Oxyhemoglobin Carboxyhemoglobin Sodium Potassium Chloride Carbon Dioxide BUN Creatinine Glucose POC Glucose 226 H 130 H Hemoglobin A1c Magnesium Ferritin AST ALT Alkaline Phosphatase Lactate Dehydrogenase C-Reactive Protein Total Protein Albumin Arterial Blood Glucose Coronavirus (PCR) 05/20/21 05/20/21 05/20/21 08:01 11:00 16:43 WBC MCV MCH MCHC RDW Lymph % (Auto) [place] % (Auto) Eos % (Auto) Lymph # (Auto) [place] # (Auto) Eos # (Auto) Baso # (Auto) Seg Neutrophils % Seg Neuts % (Manual) Lymphocytes % (Manual) Seg Neutrophils # Seg Neutrophils # Man Lymphocytes # (Manual) D-Dimer ABG pH POC ABG pCO2 POC ABG pO2 ABG pO2 ABG HCO3 ABG O2 Saturation ABG Base Excess ABG Oxyhemoglobin ABG Sodium ABG Chloride ABG Glucose Oxyhemoglobin Carboxyhemoglobin Sodium Potassium Chloride Carbon Dioxide BUN 18 H Creatinine 0.2 L Glucose 132 H POC Glucose 237 H 240 H Hemoglobin A1c Magnesium Ferritin AST ALT Alkaline Phosphatase Lactate Dehydrogenase C-Reactive Protein Total Protein Albumin Arterial Blood Glucose Coronavirus (PCR) 05/20/21 05/21/21 05/21/21 21:21 07:35 11:32 WBC MCV MCH MCHC RDW Lymph % (Auto) [place] % (Auto) Eos % (Auto) Lymph # (Auto) [place] # (Auto) Eos # (Auto) Baso # (Auto) Seg Neutrophils % Seg Neuts % (Manual) Lymphocytes % (Manual) Seg Neutrophils # Seg Neutrophils # Man Lymphocytes # (Manual) D-Dimer ABG pH POC ABG pCO2 POC ABG pO2 ABG pO2 ABG HCO3 ABG O2 Saturation ABG Base Excess ABG Oxyhemoglobin ABG Sodium ABG Chloride ABG Glucose Oxyhemoglobin Carboxyhemoglobin Sodium Potassium Chloride Carbon Dioxide BUN Creatinine Glucose POC Glucose 241 H 162 H 171 H Hemoglobin A1c Magnesium Ferritin AST ALT Alkaline Phosphatase Lactate Dehydrogenase C-Reactive Protein Total Protein Albumin Arterial Blood Glucose Coronavirus (PCR) 05/21/21 05/21/21 05/22/21 16:22 20:43 05:14 WBC MCV MCH MCHC RDW Lymph % (Auto) [place] % (Auto) Eos % (Auto) Lymph # (Auto) [place] # (Auto) Eos # (Auto) Baso # (Auto) Seg Neutrophils % Seg Neuts % (Manual) Lymphocytes % (Manual) Seg Neutrophils # Seg Neutrophils # Man Lymphocytes # (Manual) D-Dimer ABG pH POC ABG pCO2 POC ABG pO2 ABG pO2 ABG HCO3 ABG O2 Saturation ABG Base Excess ABG Oxyhemoglobin ABG Sodium ABG Chloride ABG Glucose Oxyhemoglobin Carboxyhemoglobin Sodium Potassium Chloride Carbon Dioxide BUN Creatinine Glucose POC Glucose 244 H 299 H 140 H Hemoglobin A1c Magnesium Ferritin AST ALT Alkaline Phosphatase Lactate Dehydrogenase C-Reactive Protein Total Protein Albumin Arterial Blood Glucose Coronavirus (PCR) 05/22/21 05/22/21 05/22/21 08:45 11:54 16:15 WBC MCV MCH MCHC RDW Lymph % (Auto) [place] % (Auto) Eos % (Auto) Lymph # (Auto) [place] # (Auto) Eos # (Auto) Baso # (Auto) Seg Neutrophils % Seg Neuts % (Manual) Lymphocytes % (Manual) Seg Neutrophils # Seg Neutrophils # Man Lymphocytes # (Manual) D-Dimer ABG pH POC ABG pCO2 POC ABG pO2 ABG pO2 ABG HCO3 ABG O2 Saturation ABG Base Excess ABG Oxyhemoglobin ABG Sodium ABG Chloride ABG Glucose Oxyhemoglobin Carboxyhemoglobin Sodium Potassium Chloride Carbon Dioxide BUN Creatinine Glucose POC Glucose 133 H 265 H 221 H Hemoglobin A1c Magnesium Ferritin AST ALT Alkaline Phosphatase Lactate Dehydrogenase C-Reactive Protein Total Protein Albumin Arterial Blood Glucose Coronavirus (PCR) 05/22/21 05/23/21 05/23/21 21:43 08:20 09:50 WBC MCV MCH MCHC RDW Lymph % (Auto) [place] % (Auto) Eos % (Auto) Lymph # (Auto) [place] # (Auto) Eos # (Auto) Baso # (Auto) Seg Neutrophils % Seg Neuts % (Manual) Lymphocytes % (Manual) Seg Neutrophils # Seg Neutrophils # Man Lymphocytes # (Manual) D-Dimer 910.38 H ABG pH POC ABG pCO2 POC ABG pO2 ABG pO2 ABG HCO3 ABG O2 Saturation ABG Base Excess ABG Oxyhemoglobin ABG Sodium ABG Chloride ABG Glucose Oxyhemoglobin Carboxyhemoglobin Sodium Potassium Chloride Carbon Dioxide BUN Creatinine Glucose POC Glucose 262 H 140 H Hemoglobin A1c Magnesium Ferritin AST ALT Alkaline Phosphatase Lactate Dehydrogenase C-Reactive Protein Total Protein Albumin Arterial Blood Glucose Coronavirus (PCR) 05/23/21 05/23/21 05/23/21 09:50 09:50 10:52 WBC MCV MCH MCHC RDW Lymph % (Auto) [place] % (Auto) Eos % (Auto) Lymph # (Auto) [place] # (Auto) Eos # (Auto) Baso # (Auto) Seg Neutrophils % Seg Neuts % (Manual) Lymphocytes % (Manual) Seg Neutrophils # Seg Neutrophils # Man Lymphocytes # (Manual) D-Dimer ABG pH POC ABG pCO2 POC ABG pO2 ABG pO2 ABG HCO3 ABG O2 Saturation ABG Base Excess ABG Oxyhemoglobin ABG Sodium ABG Chloride ABG Glucose Oxyhemoglobin Carboxyhemoglobin Sodium Potassium Chloride Carbon Dioxide BUN Creatinine Glucose POC Glucose 241 H Hemoglobin A1c Magnesium Ferritin 244.9 H AST ALT Alkaline Phosphatase Lactate Dehydrogenase 584 H C-Reactive Protein Total Protein Albumin Arterial Blood Glucose Coronavirus (PCR) 05/23/21 05/23/21 05/24/21 17:24 21:52 07:44 WBC MCV MCH MCHC RDW Lymph % (Auto) [place] % (Auto) Eos % (Auto) Lymph # (Auto) [place] # (Auto) Eos # (Auto) Baso # (Auto) Seg Neutrophils % Seg Neuts % (Manual) Lymphocytes % (Manual) Seg Neutrophils # Seg Neutrophils # Man Lymphocytes # (Manual) D-Dimer ABG pH POC ABG pCO2 POC ABG pO2 ABG pO2 ABG HCO3 ABG O2 Saturation ABG Base Excess ABG Oxyhemoglobin ABG Sodium ABG Chloride ABG Glucose Oxyhemoglobin Carboxyhemoglobin Sodium Potassium Chloride Carbon Dioxide BUN Creatinine Glucose POC Glucose 197 H 289 H 161 H Hemoglobin A1c Magnesium Ferritin AST ALT Alkaline Phosphatase Lactate Dehydrogenase C-Reactive Protein Total Protein Albumin Arterial Blood Glucose Coronavirus (PCR) 05/24/21 05/24/21 05/24/21 11:17 17:51 21:26 WBC MCV MCH MCHC RDW Lymph % (Auto) [place] % (Auto) Eos % (Auto) Lymph # (Auto) [place] # (Auto) Eos # (Auto) Baso # (Auto) Seg Neutrophils % Seg Neuts % (Manual) Lymphocytes % (Manual) Seg Neutrophils # Seg Neutrophils # Man Lymphocytes # (Manual) D-Dimer ABG pH POC ABG pCO2 POC ABG pO2 ABG pO2 ABG HCO3 ABG O2 Saturation ABG Base Excess ABG Oxyhemoglobin ABG Sodium ABG Chloride ABG Glucose Oxyhemoglobin Carboxyhemoglobin Sodium Potassium Chloride Carbon Dioxide BUN Creatinine Glucose POC Glucose 308 H 175 H 198 H Hemoglobin A1c Magnesium Ferritin AST ALT Alkaline Phosphatase Lactate Dehydrogenase C-Reactive Protein Total Protein Albumin Arterial Blood Glucose Coronavirus (PCR) 05/25/21 05/25/21 05/25/21 08:14 11:13 17:13 WBC MCV MCH MCHC RDW Lymph % (Auto) [place] % (Auto) Eos % (Auto) Lymph # (Auto) [place] # (Auto) Eos # (Auto) Baso # (Auto) Seg Neutrophils % Seg Neuts % (Manual) Lymphocytes % (Manual) Seg Neutrophils # Seg Neutrophils # Man Lymphocytes # (Manual) D-Dimer ABG pH POC ABG pCO2 POC ABG pO2 ABG pO2 ABG HCO3 ABG O2 Saturation ABG Base Excess ABG Oxyhemoglobin ABG Sodium ABG Chloride ABG Glucose Oxyhemoglobin Carboxyhemoglobin Sodium Potassium Chloride Carbon Dioxide BUN Creatinine Glucose POC Glucose 203 H 339 H 235 H Hemoglobin A1c Magnesium Ferritin AST ALT Alkaline Phosphatase Lactate Dehydrogenase C-Reactive Protein Total Protein Albumin Arterial Blood Glucose Coronavirus (PCR) 05/25/21 05/26/21 05/26/21 21:03 07:33 11:19 WBC MCV MCH MCHC RDW Lymph % (Auto) [place] % (Auto) Eos % (Auto) Lymph # (Auto) [place] # (Auto) Eos # (Auto) Baso # (Auto) Seg Neutrophils % Seg Neuts % (Manual) Lymphocytes % (Manual) Seg Neutrophils # Seg Neutrophils # Man Lymphocytes # (Manual) D-Dimer ABG pH POC ABG pCO2 POC ABG pO2 ABG pO2 ABG HCO3 ABG O2 Saturation ABG Base Excess ABG Oxyhemoglobin ABG Sodium ABG Chloride ABG Glucose Oxyhemoglobin Carboxyhemoglobin Sodium Potassium Chloride Carbon Dioxide BUN Creatinine Glucose POC Glucose 263 H 156 H 288 H Hemoglobin A1c Magnesium Ferritin AST ALT Alkaline Phosphatase Lactate Dehydrogenase C-Reactive Protein Total Protein Albumin Arterial Blood Glucose Coronavirus (PCR) 05/26/21 05/26/21 05/27/21 16:26 20:55 07:38 WBC MCV MCH MCHC RDW Lymph % (Auto) [place] % (Auto) Eos % (Auto) Lymph # (Auto) [place] # (Auto) Eos # (Auto) Baso # (Auto) Seg Neutrophils % Seg Neuts % (Manual) Lymphocytes % (Manual) Seg Neutrophils # Seg Neutrophils # Man Lymphocytes # (Manual) D-Dimer ABG pH POC ABG pCO2 POC ABG pO2 ABG pO2 ABG HCO3 ABG O2 Saturation ABG Base Excess ABG Oxyhemoglobin ABG Sodium ABG Chloride ABG Glucose Oxyhemoglobin Carboxyhemoglobin Sodium Potassium Chloride Carbon Dioxide BUN Creatinine Glucose POC Glucose 286 H 293 H 115 H Hemoglobin A1c Magnesium Ferritin AST ALT Alkaline Phosphatase Lactate Dehydrogenase C-Reactive Protein Total Protein Albumin Arterial Blood Glucose Coronavirus (PCR) 05/27/21 05/27/21 05/27/21 11:46 15:58 21:02 WBC MCV MCH MCHC RDW Lymph % (Auto) [place] % (Auto) Eos % (Auto) Lymph # (Auto) [place] # (Auto) Eos # (Auto) Baso # (Auto) Seg Neutrophils % Seg Neuts % (Manual) Lymphocytes % (Manual) Seg Neutrophils # Seg Neutrophils # Man Lymphocytes # (Manual) D-Dimer ABG pH POC ABG pCO2 POC ABG pO2 ABG pO2 ABG HCO3 ABG O2 Saturation ABG Base Excess ABG Oxyhemoglobin ABG Sodium ABG Chloride ABG Glucose Oxyhemoglobin Carboxyhemoglobin Sodium Potassium Chloride Carbon Dioxide BUN Creatinine Glucose POC Glucose 260 H 318 H 246 H Hemoglobin A1c Magnesium Ferritin AST ALT Alkaline Phosphatase Lactate Dehydrogenase C-Reactive Protein Total Protein Albumin Arterial Blood Glucose Coronavirus (PCR) 05/28/21 05/28/21 05/28/21 07:34 11:31 16:36 WBC MCV MCH MCHC RDW Lymph % (Auto) [place] % (Auto) Eos % (Auto) Lymph # (Auto) [place] # (Auto) Eos # (Auto) Baso # (Auto) Seg Neutrophils % Seg Neuts % (Manual) Lymphocytes % (Manual) Seg Neutrophils # Seg Neutrophils # Man Lymphocytes # (Manual) D-Dimer ABG pH POC ABG pCO2 POC ABG pO2 ABG pO2 ABG HCO3 ABG O2 Saturation ABG Base Excess ABG Oxyhemoglobin ABG Sodium ABG Chloride ABG Glucose Oxyhemoglobin Carboxyhemoglobin Sodium Potassium Chloride Carbon Dioxide BUN Creatinine Glucose POC Glucose 185 H 297 H 183 H Hemoglobin A1c Magnesium Ferritin AST ALT Alkaline Phosphatase Lactate Dehydrogenase C-Reactive Protein Total Protein Albumin Arterial Blood Glucose Coronavirus (PCR) 05/28/21 05/29/21 05/29/21 21:19 07:34 11:19 WBC MCV MCH MCHC RDW Lymph % (Auto) [place] % (Auto) Eos % (Auto) Lymph # (Auto) [place] # (Auto) Eos # (Auto) Baso # (Auto) Seg Neutrophils % Seg Neuts % (Manual) Lymphocytes % (Manual) Seg Neutrophils # Seg Neutrophils # Man Lymphocytes # (Manual) D-Dimer ABG pH POC ABG pCO2 POC ABG pO2 ABG pO2 ABG HCO3 ABG O2 Saturation ABG Base Excess ABG Oxyhemoglobin ABG Sodium ABG Chloride ABG Glucose Oxyhemoglobin Carboxyhemoglobin Sodium Potassium Chloride Carbon Dioxide BUN Creatinine Glucose POC Glucose 274 H 139 H 293 H Hemoglobin A1c Magnesium Ferritin AST ALT Alkaline Phosphatase Lactate Dehydrogenase C-Reactive Protein Total Protein Albumin Arterial Blood Glucose Coronavirus (PCR) 05/29/21 05/29/21 05/30/21 16:36 22:44 05:55 WBC MCV MCH MCHC RDW 21.3 H Lymph % (Auto) 8.0 L [place] % (Auto) Eos % (Auto) Lymph # (Auto) 0.6 L [place] # (Auto) Eos # (Auto) Baso # (Auto) Seg Neutrophils % 88.6 H Seg Neuts % (Manual) Lymphocytes % (Manual) Seg Neutrophils # Seg Neutrophils # Man Lymphocytes # (Manual) D-Dimer ABG pH POC ABG pCO2 POC ABG pO2 ABG pO2 ABG HCO3 ABG O2 Saturation ABG Base Excess ABG Oxyhemoglobin ABG Sodium ABG Chloride ABG Glucose Oxyhemoglobin Carboxyhemoglobin Sodium Potassium Chloride Carbon Dioxide BUN Creatinine Glucose POC Glucose 299 H 160 H Hemoglobin A1c Magnesium Ferritin AST ALT Alkaline Phosphatase Lactate Dehydrogenase C-Reactive Protein Total Protein Albumin Arterial Blood Glucose Coronavirus (PCR) 05/30/21 05/30/21 05/30/21 05:55 08:04 11:13 WBC MCV MCH MCHC RDW Lymph % (Auto) [place] % (Auto) Eos % (Auto) Lymph # (Auto) [place] # (Auto) Eos # (Auto) Baso # (Auto) Seg Neutrophils % Seg Neuts % (Manual) Lymphocytes % (Manual) Seg Neutrophils # Seg Neutrophils # Man Lymphocytes # (Manual) D-Dimer ABG pH POC ABG pCO2 POC ABG pO2 ABG pO2 ABG HCO3 ABG O2 Saturation ABG Base Excess ABG Oxyhemoglobin ABG Sodium ABG Chloride ABG Glucose Oxyhemoglobin Carboxyhemoglobin Sodium Potassium Chloride Carbon Dioxide BUN 19 H Creatinine 0.2 L Glucose 209 H POC Glucose 157 H 275 H Hemoglobin A1c Magnesium Ferritin AST ALT Alkaline Phosphatase Lactate Dehydrogenase C-Reactive Protein Total Protein Albumin Arterial Blood Glucose Coronavirus (PCR) 05/30/21 05/30/21 05/31/21 17:08 22:12 07:36 WBC MCV MCH MCHC RDW Lymph % (Auto) [place] % (Auto) Eos % (Auto) Lymph # (Auto) [place] # (Auto) Eos # (Auto) Baso # (Auto) Seg Neutrophils % Seg Neuts % (Manual) Lymphocytes % (Manual) Seg Neutrophils # Seg Neutrophils # Man Lymphocytes # (Manual) D-Dimer ABG pH POC ABG pCO2 POC ABG pO2 ABG pO2 ABG HCO3 ABG O2 Saturation ABG Base Excess ABG Oxyhemoglobin ABG Sodium ABG Chloride ABG Glucose Oxyhemoglobin Carboxyhemoglobin Sodium Potassium Chloride Carbon Dioxide BUN Creatinine Glucose POC Glucose 154 H 275 H 138 H Hemoglobin A1c Magnesium Ferritin AST ALT Alkaline Phosphatase Lactate Dehydrogenase C-Reactive Protein Total Protein Albumin Arterial Blood Glucose Coronavirus (PCR) 05/31/21 05/31/21 05/31/21 11:17 16:55 21:25 WBC MCV MCH MCHC RDW Lymph % (Auto) [place] % (Auto) Eos % (Auto) Lymph # (Auto) [place] # (Auto) Eos # (Auto) Baso # (Auto) Seg Neutrophils % Seg Neuts % (Manual) Lymphocytes % (Manual) Seg Neutrophils # Seg Neutrophils # Man Lymphocytes # (Manual) D-Dimer ABG pH POC ABG pCO2 POC ABG pO2 ABG pO2 ABG HCO3 ABG O2 Saturation ABG Base Excess ABG Oxyhemoglobin ABG Sodium ABG Chloride ABG Glucose Oxyhemoglobin Carboxyhemoglobin Sodium Potassium Chloride Carbon Dioxide BUN Creatinine Glucose POC Glucose 258 H 215 H 318 H Hemoglobin A1c Magnesium Ferritin AST ALT Alkaline Phosphatase Lactate Dehydrogenase C-Reactive Protein Total Protein Albumin Arterial Blood Glucose Coronavirus (PCR) 06/01/21 06/01/21 06/01/21 07:23 11:38 16:52 WBC MCV MCH MCHC RDW Lymph % (Auto) [place] % (Auto) Eos % (Auto) Lymph # (Auto) [place] # (Auto) Eos # (Auto) Baso # (Auto) Seg Neutrophils % Seg Neuts % (Manual) Lymphocytes % (Manual) Seg Neutrophils # Seg Neutrophils # Man Lymphocytes # (Manual) D-Dimer ABG pH POC ABG pCO2 POC ABG pO2 ABG pO2 ABG HCO3 ABG O2 Saturation ABG Base Excess ABG Oxyhemoglobin ABG Sodium ABG Chloride ABG Glucose Oxyhemoglobin Carboxyhemoglobin Sodium Potassium Chloride Carbon Dioxide BUN Creatinine Glucose POC Glucose 157 H 259 H 150 H Hemoglobin A1c Magnesium Ferritin AST ALT Alkaline Phosphatase Lactate Dehydrogenase C-Reactive Protein Total Protein Albumin Arterial Blood Glucose Coronavirus (PCR) 06/01/21 06/02/21 06/02/21 23:16 05:34 05:34 WBC MCV MCH MCHC RDW 21.3 H Lymph % (Auto) 9.6 L [place] % (Auto) Eos % (Auto) Lymph # (Auto) 0.6 L [place] # (Auto) Eos # (Auto) Baso # (Auto) Seg Neutrophils % 86.2 H Seg Neuts % (Manual) Lymphocytes % (Manual) Seg Neutrophils # Seg Neutrophils # Man Lymphocytes # (Manual) D-Dimer ABG pH POC ABG pCO2 POC ABG pO2 ABG pO2 ABG HCO3 ABG O2 Saturation ABG Base Excess ABG Oxyhemoglobin ABG Sodium ABG Chloride ABG Glucose Oxyhemoglobin Carboxyhemoglobin Sodium 136 L Potassium Chloride Carbon Dioxide BUN Creatinine 0.2 L Glucose 186 H POC Glucose 247 H Hemoglobin A1c Magnesium Ferritin AST ALT 69 H Alkaline Phosphatase Lactate Dehydrogenase C-Reactive Protein Total Protein 6.1 L Albumin 3.2 L Arterial Blood Glucose Coronavirus (PCR) 06/02/21 06/02/21 06/02/21 11:25 18:23 21:32 WBC MCV MCH MCHC RDW Lymph % (Auto) [place] % (Auto) Eos % (Auto) Lymph # (Auto) [place] # (Auto) Eos # (Auto) Baso # (Auto) Seg Neutrophils % Seg Neuts % (Manual) Lymphocytes % (Manual) Seg Neutrophils # Seg Neutrophils # Man Lymphocytes # (Manual) D-Dimer ABG pH POC ABG pCO2 POC ABG pO2 ABG pO2 ABG HCO3 ABG O2 Saturation ABG Base Excess ABG Oxyhemoglobin ABG Sodium ABG Chloride ABG Glucose Oxyhemoglobin Carboxyhemoglobin Sodium Potassium Chloride Carbon Dioxide BUN Creatinine Glucose POC Glucose 157 H 299 H 246 H Hemoglobin A1c Magnesium Ferritin AST ALT Alkaline Phosphatase Lactate Dehydrogenase C-Reactive Protein Total Protein Albumin Arterial Blood Glucose Coronavirus (PCR) 06/03/21 06/03/21 06/03/21 08:12 12:21 17:31 WBC MCV MCH MCHC RDW Lymph % (Auto) [place] % (Auto) Eos % (Auto) Lymph # (Auto) [place] # (Auto) Eos # (Auto) Baso # (Auto) Seg Neutrophils % Seg Neuts % (Manual) Lymphocytes % (Manual) Seg Neutrophils # Seg Neutrophils # Man Lymphocytes # (Manual) D-Dimer ABG pH POC ABG pCO2 POC ABG pO2 ABG pO2 ABG HCO3 ABG O2 Saturation ABG Base Excess ABG Oxyhemoglobin ABG Sodium ABG Chloride ABG Glucose Oxyhemoglobin Carboxyhemoglobin Sodium Potassium Chloride Carbon Dioxide BUN Creatinine Glucose POC Glucose 153 H 302 H 252 H Hemoglobin A1c Magnesium Ferritin AST ALT Alkaline Phosphatase Lactate Dehydrogenase C-Reactive Protein Total Protein Albumin Arterial Blood Glucose Coronavirus (PCR) 06/03/21 06/04/21 06/04/21 22:08 11:12 16:01 WBC MCV MCH MCHC RDW Lymph % (Auto) [place] % (Auto) Eos % (Auto) Lymph # (Auto) [place] # (Auto) Eos # (Auto) Baso # (Auto) Seg Neutrophils % Seg Neuts % (Manual) Lymphocytes % (Manual) Seg Neutrophils # Seg Neutrophils # Man Lymphocytes # (Manual) D-Dimer ABG pH POC ABG pCO2 POC ABG pO2 ABG pO2 ABG HCO3 ABG O2 Saturation ABG Base Excess ABG Oxyhemoglobin ABG Sodium ABG Chloride ABG Glucose Oxyhemoglobin Carboxyhemoglobin Sodium Potassium Chloride Carbon Dioxide BUN Creatinine Glucose POC Glucose 224 H 259 H 238 H Hemoglobin A1c Magnesium Ferritin AST ALT Alkaline Phosphatase Lactate Dehydrogenase C-Reactive Protein Total Protein Albumin Arterial Blood Glucose Coronavirus (PCR) 06/04/21 06/05/21 06/05/21 21:26 05:26 05:26 WBC MCV MCH MCHC RDW Lymph % (Auto) [place] % (Auto) Eos % (Auto) Lymph # (Auto) [place] # (Auto) Eos # (Auto) Baso # (Auto) Seg Neutrophils % Seg Neuts % (Manual) Lymphocytes % (Manual) Seg Neutrophils # Seg Neutrophils # Man Lymphocytes # (Manual) D-Dimer 488.49 H ABG pH POC ABG pCO2 POC ABG pO2 ABG pO2 ABG HCO3 ABG O2 Saturation ABG Base Excess ABG Oxyhemoglobin ABG Sodium ABG Chloride ABG Glucose Oxyhemoglobin Carboxyhemoglobin Sodium Potassium Chloride Carbon Dioxide BUN Creatinine 0.2 L Glucose 198 H POC Glucose 257 H Hemoglobin A1c Magnesium Ferritin AST ALT Alkaline Phosphatase Lactate Dehydrogenase 475 H C-Reactive Protein Total Protein Albumin Arterial Blood Glucose Coronavirus (PCR) 06/05/21 06/05/21 06/05/21 07:20 08:30 11:00 WBC MCV MCH MCHC RDW Lymph % (Auto) [place] % (Auto) Eos % (Auto) Lymph # (Auto) [place] # (Auto) Eos # (Auto) Baso # (Auto) Seg Neutrophils % Seg Neuts % (Manual) Lymphocytes % (Manual) Seg Neutrophils # Seg Neutrophils # Man Lymphocytes # (Manual) D-Dimer ABG pH POC ABG pCO2 POC ABG pO2 ABG pO2 ABG HCO3 ABG O2 Saturation ABG Base Excess ABG Oxyhemoglobin ABG Sodium ABG Chloride ABG Glucose Oxyhemoglobin Carboxyhemoglobin Sodium Potassium Chloride Carbon Dioxide BUN Creatinine Glucose POC Glucose 146 H 246 H Hemoglobin A1c Magnesium Ferritin AST ALT Alkaline Phosphatase Lactate Dehydrogenase C-Reactive Protein Total Protein Albumin Arterial Blood Glucose Coronavirus (PCR) Positive A 06/05/21 06/05/21 06/06/21 16:50 22:30 07:57 WBC MCV MCH MCHC RDW Lymph % (Auto) [place] % (Auto) Eos % (Auto) Lymph # (Auto) [place] # (Auto) Eos # (Auto) Baso # (Auto) Seg Neutrophils % Seg Neuts % (Manual) Lymphocytes % (Manual) Seg Neutrophils # Seg Neutrophils # Man Lymphocytes # (Manual) D-Dimer ABG pH POC ABG pCO2 POC ABG pO2 ABG pO2 ABG HCO3 ABG O2 Saturation ABG Base Excess ABG Oxyhemoglobin ABG Sodium ABG Chloride ABG Glucose Oxyhemoglobin Carboxyhemoglobin Sodium Potassium Chloride Carbon Dioxide BUN Creatinine Glucose POC Glucose 240 H 174 H 120 H Hemoglobin A1c Magnesium Ferritin AST ALT Alkaline Phosphatase Lactate Dehydrogenase C-Reactive Protein Total Protein Albumin Arterial Blood Glucose Coronavirus (PCR) 06/06/21 06/06/21 06/06/21 11:14 16:50 21:11 WBC MCV MCH MCHC RDW Lymph % (Auto) [place] % (Auto) Eos % (Auto) Lymph # (Auto) [place] # (Auto) Eos # (Auto) Baso # (Auto) Seg Neutrophils % Seg Neuts % (Manual) Lymphocytes % (Manual) Seg Neutrophils # Seg Neutrophils # Man Lymphocytes # (Manual) D-Dimer ABG pH POC ABG pCO2 POC ABG pO2 ABG pO2 ABG HCO3 ABG O2 Saturation ABG Base Excess ABG Oxyhemoglobin ABG Sodium ABG Chloride ABG Glucose Oxyhemoglobin Carboxyhemoglobin Sodium Potassium Chloride Carbon Dioxide BUN Creatinine Glucose POC Glucose 267 H 218 H 124 H Hemoglobin A1c Magnesium Ferritin AST ALT Alkaline Phosphatase Lactate Dehydrogenase C-Reactive Protein Total Protein Albumin Arterial Blood Glucose Coronavirus (PCR) 06/07/21 06/07/21 06/08/21 11:58 15:59 07:59 WBC MCV MCH MCHC RDW Lymph % (Auto) [place] % (Auto) Eos % (Auto) Lymph # (Auto) [place] # (Auto) Eos # (Auto) Baso # (Auto) Seg Neutrophils % Seg Neuts % (Manual) Lymphocytes % (Manual) Seg Neutrophils # Seg Neutrophils # Man Lymphocytes # (Manual) D-Dimer ABG pH POC ABG pCO2 POC ABG pO2 ABG pO2 ABG HCO3 ABG O2 Saturation ABG Base Excess ABG Oxyhemoglobin ABG Sodium ABG Chloride ABG Glucose Oxyhemoglobin Carboxyhemoglobin Sodium Potassium Chloride Carbon Dioxide BUN Creatinine Glucose POC Glucose 219 H 208 H 192 H Hemoglobin A1c Magnesium Ferritin AST ALT Alkaline Phosphatase Lactate Dehydrogenase C-Reactive Protein Total Protein Albumin Arterial Blood Glucose Coronavirus (PCR) 06/08/21 06/08/21 06/09/21 11:26 23:28 07:33 WBC MCV MCH MCHC RDW Lymph % (Auto) [place] % (Auto) Eos % (Auto) Lymph # (Auto) [place] # (Auto) Eos # (Auto) Baso # (Auto) Seg Neutrophils % Seg Neuts % (Manual) Lymphocytes % (Manual) Seg Neutrophils # Seg Neutrophils # Man Lymphocytes # (Manual) D-Dimer ABG pH POC ABG pCO2 POC ABG pO2 ABG pO2 ABG HCO3 ABG O2 Saturation ABG Base Excess ABG Oxyhemoglobin ABG Sodium ABG Chloride ABG Glucose Oxyhemoglobin Carboxyhemoglobin Sodium Potassium Chloride Carbon Dioxide BUN Creatinine Glucose POC Glucose 307 H 138 H 145 H Hemoglobin A1c Magnesium Ferritin AST ALT Alkaline Phosphatase Lactate Dehydrogenase C-Reactive Protein Total Protein Albumin Arterial Blood Glucose Coronavirus (PCR) 06/09/21 06/09/21 06/09/21 11:01 15:47 21:43 WBC MCV MCH MCHC RDW Lymph % (Auto) [place] % (Auto) Eos % (Auto) Lymph # (Auto) [place] # (Auto) Eos # (Auto) Baso # (Auto) Seg Neutrophils % Seg Neuts % (Manual) Lymphocytes % (Manual) Seg Neutrophils # Seg Neutrophils # Man Lymphocytes # (Manual) D-Dimer ABG pH POC ABG pCO2 POC ABG pO2 ABG pO2 ABG HCO3 ABG O2 Saturation ABG Base Excess ABG Oxyhemoglobin ABG Sodium ABG Chloride ABG Glucose Oxyhemoglobin Carboxyhemoglobin Sodium Potassium Chloride Carbon Dioxide BUN Creatinine Glucose POC Glucose 266 H 305 H 223 H Hemoglobin A1c Magnesium Ferritin AST ALT Alkaline Phosphatase Lactate Dehydrogenase C-Reactive Protein Total Protein Albumin Arterial Blood Glucose Coronavirus (PCR) 06/10/21 06/10/21 06/10/21 08:27 12:10 17:45 WBC MCV MCH MCHC RDW Lymph % (Auto) [place] % (Auto) Eos % (Auto) Lymph # (Auto) [place] # (Auto) Eos # (Auto) Baso # (Auto) Seg Neutrophils % Seg Neuts % (Manual) Lymphocytes % (Manual) Seg Neutrophils # Seg Neutrophils # Man Lymphocytes # (Manual) D-Dimer ABG pH POC ABG pCO2 POC ABG pO2 ABG pO2 ABG HCO3 ABG O2 Saturation ABG Base Excess ABG Oxyhemoglobin ABG Sodium ABG Chloride ABG Glucose Oxyhemoglobin Carboxyhemoglobin Sodium Potassium Chloride Carbon Dioxide BUN Creatinine Glucose POC Glucose 174 H 306 H 210 H Hemoglobin A1c Magnesium Ferritin AST ALT Alkaline Phosphatase Lactate Dehydrogenase C-Reactive Protein Total Protein Albumin Arterial Blood Glucose Coronavirus (PCR) 06/10/21 06/11/21 06/11/21 21:45 09:38 09:38 WBC MCV MCH MCHC RDW 20.9 H Lymph % (Auto) [place] % (Auto) Eos % (Auto) Lymph # (Auto) [place] # (Auto) Eos # (Auto) Baso # (Auto) Seg Neutrophils % Seg Neuts % (Manual) Lymphocytes % (Manual) Seg Neutrophils # Seg Neutrophils # Man Lymphocytes # (Manual) D-Dimer ABG pH POC ABG pCO2 POC ABG pO2 ABG pO2 ABG HCO3 ABG O2 Saturation ABG Base Excess ABG Oxyhemoglobin ABG Sodium ABG Chloride ABG Glucose Oxyhemoglobin Carboxyhemoglobin Sodium 135 L Potassium Chloride 90.8 L Carbon Dioxide 36 H BUN 29 H Creatinine 0.2 L Glucose 258 H POC Glucose 262 H Hemoglobin A1c Magnesium Ferritin AST ALT Alkaline Phosphatase Lactate Dehydrogenase C-Reactive Protein Total Protein Albumin Arterial Blood Glucose Coronavirus (PCR) 06/11/21 06/11/21 06/11/21 11:20 15:49 22:57 WBC MCV MCH MCHC RDW Lymph % (Auto) [place] % (Auto) Eos % (Auto) Lymph # (Auto) [place] # (Auto) Eos # (Auto) Baso # (Auto) Seg Neutrophils % Seg Neuts % (Manual) Lymphocytes % (Manual) Seg Neutrophils # Seg Neutrophils # Man Lymphocytes # (Manual) D-Dimer ABG pH POC ABG pCO2 POC ABG pO2 ABG pO2 ABG HCO3 ABG O2 Saturation ABG Base Excess ABG Oxyhemoglobin ABG Sodium ABG Chloride ABG Glucose Oxyhemoglobin Carboxyhemoglobin Sodium Potassium Chloride Carbon Dioxide BUN Creatinine Glucose POC Glucose 269 H 206 H 211 H Hemoglobin A1c Magnesium Ferritin AST ALT Alkaline Phosphatase Lactate Dehydrogenase C-Reactive Protein Total Protein Albumin Arterial Blood Glucose Coronavirus (PCR) 06/12/21 06/12/21 06/12/21 08:07 11:24 18:08 WBC MCV MCH MCHC RDW Lymph % (Auto) [place] % (Auto) Eos % (Auto) Lymph # (Auto) [place] # (Auto) Eos # (Auto) Baso # (Auto) Seg Neutrophils % Seg Neuts % (Manual) Lymphocytes % (Manual) Seg Neutrophils # Seg Neutrophils # Man Lymphocytes # (Manual) D-Dimer ABG pH POC ABG pCO2 POC ABG pO2 ABG pO2 ABG HCO3 ABG O2 Saturation ABG Base Excess ABG Oxyhemoglobin ABG Sodium ABG Chloride ABG Glucose Oxyhemoglobin Carboxyhemoglobin Sodium Potassium Chloride Carbon Dioxide BUN Creatinine Glucose POC Glucose 149 H 270 H 166 H Hemoglobin A1c Magnesium Ferritin AST ALT Alkaline Phosphatase Lactate Dehydrogenase C-Reactive Protein Total Protein Albumin Arterial Blood Glucose Coronavirus (PCR) 06/12/21 06/13/21 06/13/21 20:22 07:50 11:18 WBC MCV MCH MCHC RDW Lymph % (Auto) [place] % (Auto) Eos % (Auto) Lymph # (Auto) [place] # (Auto) Eos # (Auto) Baso # (Auto) Seg Neutrophils % Seg Neuts % (Manual) Lymphocytes % (Manual) Seg Neutrophils # Seg Neutrophils # Man Lymphocytes # (Manual) D-Dimer ABG pH POC ABG pCO2 POC ABG pO2 ABG pO2 ABG HCO3 ABG O2 Saturation ABG Base Excess ABG Oxyhemoglobin ABG Sodium ABG Chloride ABG Glucose Oxyhemoglobin Carboxyhemoglobin Sodium Potassium Chloride Carbon Dioxide BUN Creatinine Glucose POC Glucose 155 H 163 H 293 H Hemoglobin A1c Magnesium Ferritin AST ALT Alkaline Phosphatase Lactate Dehydrogenase C-Reactive Protein Total Protein Albumin Arterial Blood Glucose Coronavirus (PCR) 06/13/21 06/13/21 06/14/21 16:41 21:00 07:41 WBC MCV MCH MCHC RDW Lymph % (Auto) [place] % (Auto) Eos % (Auto) Lymph # (Auto) [place] # (Auto) Eos # (Auto) Baso # (Auto) Seg Neutrophils % Seg Neuts % (Manual) Lymphocytes % (Manual) Seg Neutrophils # Seg Neutrophils # Man Lymphocytes # (Manual) D-Dimer ABG pH POC ABG pCO2 POC ABG pO2 ABG pO2 ABG HCO3 ABG O2 Saturation ABG Base Excess ABG Oxyhemoglobin ABG Sodium ABG Chloride ABG Glucose Oxyhemoglobin Carboxyhemoglobin Sodium Potassium Chloride Carbon Dioxide BUN Creatinine Glucose POC Glucose 232 H 183 H 52 L Hemoglobin A1c Magnesium Ferritin AST ALT Alkaline Phosphatase Lactate Dehydrogenase C-Reactive Protein Total Protein Albumin Arterial Blood Glucose Coronavirus (PCR) 06/14/21 06/14/21 06/14/21 11:44 17:44 21:44 WBC MCV MCH MCHC RDW Lymph % (Auto) [place] % (Auto) Eos % (Auto) Lymph # (Auto) [place] # (Auto) Eos # (Auto) Baso # (Auto) Seg Neutrophils % Seg Neuts % (Manual) Lymphocytes % (Manual) Seg Neutrophils # Seg Neutrophils # Man Lymphocytes # (Manual) D-Dimer ABG pH POC ABG pCO2 POC ABG pO2 ABG pO2 ABG HCO3 ABG O2 Saturation ABG Base Excess ABG Oxyhemoglobin ABG Sodium ABG Chloride ABG Glucose Oxyhemoglobin Carboxyhemoglobin Sodium Potassium Chloride Carbon Dioxide BUN Creatinine Glucose POC Glucose 205 H 293 H 288 H Hemoglobin A1c Magnesium Ferritin AST ALT Alkaline Phosphatase Lactate Dehydrogenase C-Reactive Protein Total Protein Albumin Arterial Blood Glucose Coronavirus (PCR) 06/15/21 06/15/21 06/15/21 08:00 08:00 11:40 WBC MCV MCH 33 H MCHC 35 H RDW 20.3 H Lymph % (Auto) [place] % (Auto) Eos % (Auto) Lymph # (Auto) [place] # (Auto) Eos # (Auto) Baso # (Auto) Seg Neutrophils % Seg Neuts % (Manual) Lymphocytes % (Manual) Seg Neutrophils # Seg Neutrophils # Man Lymphocytes # (Manual) D-Dimer ABG pH POC ABG pCO2 POC ABG pO2 ABG pO2 ABG HCO3 ABG O2 Saturation ABG Base Excess ABG Oxyhemoglobin ABG Sodium ABG Chloride ABG Glucose Oxyhemoglobin Carboxyhemoglobin Sodium Potassium 3.2 L Chloride 95.3 L Carbon Dioxide 32 H BUN 23 H Creatinine 0.2 L Glucose 103 H POC Glucose 204 H Hemoglobin A1c Magnesium Ferritin AST ALT Alkaline Phosphatase Lactate Dehydrogenase C-Reactive Protein Total Protein Albumin Arterial Blood Glucose Coronavirus (PCR) 06/15/21 06/15/21 06/16/21 16:17 22:00 11:43 WBC MCV MCH MCHC RDW Lymph % (Auto) [place] % (Auto) Eos % (Auto) Lymph # (Auto) [place] # (Auto) Eos # (Auto) Baso # (Auto) Seg Neutrophils % Seg Neuts % (Manual) Lymphocytes % (Manual) Seg Neutrophils # Seg Neutrophils # Man Lymphocytes # (Manual) D-Dimer ABG pH POC ABG pCO2 POC ABG pO2 ABG pO2 ABG HCO3 ABG O2 Saturation ABG Base Excess ABG Oxyhemoglobin ABG Sodium ABG Chloride ABG Glucose Oxyhemoglobin Carboxyhemoglobin Sodium Potassium Chloride Carbon Dioxide BUN Creatinine Glucose POC Glucose 295 H 233 H 201 H Hemoglobin A1c Magnesium Ferritin AST ALT Alkaline Phosphatase Lactate Dehydrogenase C-Reactive Protein Total Protein Albumin Arterial Blood Glucose Coronavirus (PCR) 06/16/21 06/16/21 06/17/21 17:21 21:27 07:12 WBC MCV MCH MCHC RDW Lymph % (Auto) [place] % (Auto) Eos % (Auto) Lymph # (Auto) [place] # (Auto) Eos # (Auto) Baso # (Auto) Seg Neutrophils % Seg Neuts % (Manual) Lymphocytes % (Manual) Seg Neutrophils # Seg Neutrophils # Man Lymphocytes # (Manual) D-Dimer ABG pH POC ABG pCO2 POC ABG pO2 ABG pO2 ABG HCO3 ABG O2 Saturation ABG Base Excess ABG Oxyhemoglobin ABG Sodium ABG Chloride ABG Glucose Oxyhemoglobin Carboxyhemoglobin Sodium Potassium Chloride Carbon Dioxide BUN Creatinine Glucose POC Glucose 299 H 290 H 67 L Hemoglobin A1c Magnesium Ferritin AST ALT Alkaline Phosphatase Lactate Dehydrogenase C-Reactive Protein Total Protein Albumin Arterial Blood Glucose Coronavirus (PCR) 06/17/21 06/17/21 06/17/21 11:53 17:02 22:25 WBC MCV MCH MCHC RDW Lymph % (Auto) [place] % (Auto) Eos % (Auto) Lymph # (Auto) [place] # (Auto) Eos # (Auto) Baso # (Auto) Seg Neutrophils % Seg Neuts % (Manual) Lymphocytes % (Manual) Seg Neutrophils # Seg Neutrophils # Man Lymphocytes # (Manual) D-Dimer ABG pH POC ABG pCO2 POC ABG pO2 ABG pO2 ABG HCO3 ABG O2 Saturation ABG Base Excess ABG Oxyhemoglobin ABG Sodium ABG Chloride ABG Glucose Oxyhemoglobin Carboxyhemoglobin Sodium Potassium Chloride Carbon Dioxide BUN Creatinine Glucose POC Glucose 199 H 362 H 235 H Hemoglobin A1c Magnesium Ferritin AST ALT Alkaline Phosphatase Lactate Dehydrogenase C-Reactive Protein Total Protein Albumin Arterial Blood Glucose Coronavirus (PCR) 06/18/21 06/18/21 06/18/21 08:00 11:48 16:40 WBC MCV MCH MCHC RDW Lymph % (Auto) [place] % (Auto) Eos % (Auto) Lymph # (Auto) [place] # (Auto) Eos # (Auto) Baso # (Auto) Seg Neutrophils % Seg Neuts % (Manual) Lymphocytes % (Manual) Seg Neutrophils # Seg Neutrophils # Man Lymphocytes # (Manual) D-Dimer ABG pH POC ABG pCO2 POC ABG pO2 ABG pO2 ABG HCO3 ABG O2 Saturation ABG Base Excess ABG Oxyhemoglobin ABG Sodium ABG Chloride ABG Glucose Oxyhemoglobin Carboxyhemoglobin Sodium Potassium Chloride Carbon Dioxide BUN Creatinine Glucose POC Glucose 62 L 211 H 305 H Hemoglobin A1c Magnesium Ferritin AST ALT Alkaline Phosphatase Lactate Dehydrogenase C-Reactive Protein Total Protein Albumin Arterial Blood Glucose Coronavirus (PCR) 06/18/21 06/19/21 06/19/21 21:26 07:27 11:32 WBC MCV MCH MCHC RDW Lymph % (Auto) [place] % (Auto) Eos % (Auto) Lymph # (Auto) [place] # (Auto) Eos # (Auto) Baso # (Auto) Seg Neutrophils % Seg Neuts % (Manual) Lymphocytes % (Manual) Seg Neutrophils # Seg Neutrophils # Man Lymphocytes # (Manual) D-Dimer ABG pH POC ABG pCO2 POC ABG pO2 ABG pO2 ABG HCO3 ABG O2 Saturation ABG Base Excess ABG Oxyhemoglobin ABG Sodium ABG Chloride ABG Glucose Oxyhemoglobin Carboxyhemoglobin Sodium Potassium Chloride Carbon Dioxide BUN Creatinine Glucose POC Glucose 149 H 60 L 208 H Hemoglobin A1c Magnesium Ferritin AST ALT Alkaline Phosphatase Lactate Dehydrogenase C-Reactive Protein Total Protein Albumin Arterial Blood Glucose Coronavirus (PCR) 06/19/21 06/19/21 06/20/21 16:06 22:28 07:48 WBC MCV MCH MCHC RDW Lymph % (Auto) [place] % (Auto) Eos % (Auto) Lymph # (Auto) [place] # (Auto) Eos # (Auto) Baso # (Auto) Seg Neutrophils % Seg Neuts % (Manual) Lymphocytes % (Manual) Seg Neutrophils # Seg Neutrophils # Man Lymphocytes # (Manual) D-Dimer ABG pH POC ABG pCO2 POC ABG pO2 ABG pO2 ABG HCO3 ABG O2 Saturation ABG Base Excess ABG Oxyhemoglobin ABG Sodium ABG Chloride ABG Glucose Oxyhemoglobin Carboxyhemoglobin Sodium Potassium Chloride Carbon Dioxide BUN Creatinine Glucose POC Glucose 266 H 166 H 58 L Hemoglobin A1c Magnesium Ferritin AST ALT Alkaline Phosphatase Lactate Dehydrogenase C-Reactive Protein Total Protein Albumin Arterial Blood Glucose Coronavirus (PCR) 06/20/21 06/20/21 06/20/21 09:09 11:04 16:01 WBC MCV MCH MCHC RDW Lymph % (Auto) [place] % (Auto) Eos % (Auto) Lymph # (Auto) [place] # (Auto) Eos # (Auto) Baso # (Auto) Seg Neutrophils % Seg Neuts % (Manual) Lymphocytes % (Manual) Seg Neutrophils # Seg Neutrophils # Man Lymphocytes # (Manual) D-Dimer ABG pH POC ABG pCO2 POC ABG pO2 ABG pO2 ABG HCO3 ABG O2 Saturation ABG Base Excess ABG Oxyhemoglobin ABG Sodium ABG Chloride ABG Glucose Oxyhemoglobin Carboxyhemoglobin Sodium Potassium Chloride Carbon Dioxide BUN Creatinine Glucose POC Glucose 146 H 225 H 330 H Hemoglobin A1c Magnesium Ferritin AST ALT Alkaline Phosphatase Lactate Dehydrogenase C-Reactive Protein Total Protein Albumin Arterial Blood Glucose Coronavirus (PCR) 06/20/21 06/21/21 06/21/21 20:46 06:45 06:45 WBC MCV MCH MCHC RDW 20.0 H Lymph % (Auto) [place] % (Auto) Eos % (Auto) Lymph # (Auto) [place] # (Auto) Eos # (Auto) Baso # (Auto) Seg Neutrophils % Seg Neuts % (Manual) Lymphocytes % (Manual) Seg Neutrophils # Seg Neutrophils # Man Lymphocytes # (Manual) D-Dimer ABG pH POC ABG pCO2 POC ABG pO2 ABG pO2 ABG HCO3 ABG O2 Saturation ABG Base Excess ABG Oxyhemoglobin ABG Sodium ABG Chloride ABG Glucose Oxyhemoglobin Carboxyhemoglobin Sodium Potassium 2.9 L* Chloride 95.0 L Carbon Dioxide 31 H BUN 23 H Creatinine 0.2 L Glucose 45 L POC Glucose 215 H Hemoglobin A1c Magnesium Ferritin AST ALT Alkaline Phosphatase Lactate Dehydrogenase C-Reactive Protein Total Protein Albumin Arterial Blood Glucose Coronavirus (PCR) 06/21/21 06/21/21 06/21/21 07:38 09:06 12:40 WBC MCV MCH MCHC RDW Lymph % (Auto) [place] % (Auto) Eos % (Auto) Lymph # (Auto) [place] # (Auto) Eos # (Auto) Baso # (Auto) Seg Neutrophils % Seg Neuts % (Manual) Lymphocytes % (Manual) Seg Neutrophils # Seg Neutrophils # Man Lymphocytes # (Manual) D-Dimer ABG pH POC ABG pCO2 POC ABG pO2 ABG pO2 ABG HCO3 ABG O2 Saturation ABG Base Excess ABG Oxyhemoglobin ABG Sodium ABG Chloride ABG Glucose Oxyhemoglobin Carboxyhemoglobin Sodium Potassium Chloride Carbon Dioxide BUN Creatinine Glucose POC Glucose 50 L 196 H 205 H Hemoglobin A1c Magnesium Ferritin AST ALT Alkaline Phosphatase Lactate Dehydrogenase C-Reactive Protein Total Protein Albumin Arterial Blood Glucose Coronavirus (PCR) 06/21/21 06/22/21 06/22/21 21:36 06:25 07:15 WBC MCV MCH MCHC RDW Lymph % (Auto) [place] % (Auto) Eos % (Auto) Lymph # (Auto) [place] # (Auto) Eos # (Auto) Baso # (Auto) Seg Neutrophils % Seg Neuts % (Manual) Lymphocytes % (Manual) Seg Neutrophils # Seg Neutrophils # Man Lymphocytes # (Manual) D-Dimer ABG pH POC ABG pCO2 POC ABG pO2 ABG pO2 ABG HCO3 ABG O2 Saturation ABG Base Excess ABG Oxyhemoglobin ABG Sodium ABG Chloride ABG Glucose Oxyhemoglobin Carboxyhemoglobin Sodium Potassium Chloride Carbon Dioxide BUN 20 H Creatinine 0.2 L Glucose POC Glucose 245 H 66 L Hemoglobin A1c Magnesium Ferritin AST ALT Alkaline Phosphatase Lactate Dehydrogenase C-Reactive Protein Total Protein Albumin Arterial Blood Glucose Coronavirus (PCR) 06/22/21 06/22/21 06/22/21 11:03 16:07 22:03 WBC MCV MCH MCHC RDW Lymph % (Auto) [place] % (Auto) Eos % (Auto) Lymph # (Auto) [place] # (Auto) Eos # (Auto) Baso # (Auto) Seg Neutrophils % Seg Neuts % (Manual) Lymphocytes % (Manual) Seg Neutrophils # Seg Neutrophils # Man Lymphocytes # (Manual) D-Dimer ABG pH POC ABG pCO2 POC ABG pO2 ABG pO2 ABG HCO3 ABG O2 Saturation ABG Base Excess ABG Oxyhemoglobin ABG Sodium ABG Chloride ABG Glucose Oxyhemoglobin Carboxyhemoglobin Sodium Potassium Chloride Carbon Dioxide BUN Creatinine Glucose POC Glucose 184 H 326 H 138 H Hemoglobin A1c Magnesium Ferritin AST ALT Alkaline Phosphatase Lactate Dehydrogenase C-Reactive Protein Total Protein Albumin Arterial Blood Glucose Coronavirus (PCR) 06/23/21 06/23/21 06/23/21 07:19 10:34 16:35 WBC MCV MCH MCHC RDW Lymph % (Auto) [place] % (Auto) Eos % (Auto) Lymph # (Auto) [place] # (Auto) Eos # (Auto) Baso # (Auto) Seg Neutrophils % Seg Neuts % (Manual) Lymphocytes % (Manual) Seg Neutrophils # Seg Neutrophils # Man Lymphocytes # (Manual) D-Dimer ABG pH POC ABG pCO2 POC ABG pO2 ABG pO2 ABG HCO3 ABG O2 Saturation ABG Base Excess ABG Oxyhemoglobin ABG Sodium ABG Chloride ABG Glucose Oxyhemoglobin Carboxyhemoglobin Sodium Potassium Chloride Carbon Dioxide BUN Creatinine Glucose POC Glucose 69 L 218 H 326 H Hemoglobin A1c Magnesium Ferritin AST ALT Alkaline Phosphatase Lactate Dehydrogenase C-Reactive Protein Total Protein Albumin Arterial Blood Glucose Coronavirus (PCR) 06/23/21 06/24/21 06/24/21 22:44 11:41 16:54 WBC MCV MCH MCHC RDW Lymph % (Auto) [place] % (Auto) Eos % (Auto) Lymph # (Auto) [place] # (Auto) Eos # (Auto) Baso # (Auto) Seg Neutrophils % Seg Neuts % (Manual) Lymphocytes % (Manual) Seg Neutrophils # Seg Neutrophils # Man Lymphocytes # (Manual) D-Dimer ABG pH POC ABG pCO2 POC ABG pO2 ABG pO2 ABG HCO3 ABG O2 Saturation ABG Base Excess ABG Oxyhemoglobin ABG Sodium ABG Chloride ABG Glucose Oxyhemoglobin Carboxyhemoglobin Sodium Potassium Chloride Carbon Dioxide BUN Creatinine Glucose POC Glucose 252 H 217 H 357 H Hemoglobin A1c Magnesium Ferritin AST ALT Alkaline Phosphatase Lactate Dehydrogenase C-Reactive Protein Total Protein Albumin Arterial Blood Glucose Coronavirus (PCR) 06/24/21 06/25/21 06/25/21 20:40 11:51 16:47 WBC MCV MCH MCHC RDW Lymph % (Auto) [place] % (Auto) Eos % (Auto) Lymph # (Auto) [place] # (Auto) Eos # (Auto) Baso # (Auto) Seg Neutrophils % Seg Neuts % (Manual) Lymphocytes % (Manual) Seg Neutrophils # Seg Neutrophils # Man Lymphocytes # (Manual) D-Dimer ABG pH POC ABG pCO2 POC ABG pO2 ABG pO2 ABG HCO3 ABG O2 Saturation ABG Base Excess ABG Oxyhemoglobin ABG Sodium ABG Chloride ABG Glucose Oxyhemoglobin Carboxyhemoglobin Sodium Potassium Chloride Carbon Dioxide BUN Creatinine Glucose POC Glucose 239 H 182 H 229 H Hemoglobin A1c Magnesium Ferritin AST ALT Alkaline Phosphatase Lactate Dehydrogenase C-Reactive Protein Total Protein Albumin Arterial Blood Glucose Coronavirus (PCR) 06/25/21 06/26/21 06/26/21 22:27 07:20 12:19 WBC MCV MCH MCHC RDW Lymph % (Auto) [place] % (Auto) Eos % (Auto) Lymph # (Auto) [place] # (Auto) Eos # (Auto) Baso # (Auto) Seg Neutrophils % Seg Neuts % (Manual) Lymphocytes % (Manual) Seg Neutrophils # Seg Neutrophils # Man Lymphocytes # (Manual) D-Dimer ABG pH POC ABG pCO2 POC ABG pO2 ABG pO2 ABG HCO3 ABG O2 Saturation ABG Base Excess ABG Oxyhemoglobin ABG Sodium ABG Chloride ABG Glucose Oxyhemoglobin Carboxyhemoglobin Sodium Potassium 3.2 L D Chloride Carbon Dioxide BUN 20 H Creatinine 0.3 L Glucose POC Glucose 209 H 273 H Hemoglobin A1c Magnesium Ferritin AST ALT 77 H Alkaline Phosphatase Lactate Dehydrogenase C-Reactive Protein Total Protein Albumin 3.3 L Arterial Blood Glucose Coronavirus (PCR) 06/26/21 06/26/21 06/27/21 16:52 20:55 07:14 WBC MCV MCH MCHC RDW Lymph % (Auto) [place] % (Auto) Eos % (Auto) Lymph # (Auto) [place] # (Auto) Eos # (Auto) Baso # (Auto) Seg Neutrophils % Seg Neuts % (Manual) Lymphocytes % (Manual) Seg Neutrophils # Seg Neutrophils # Man Lymphocytes # (Manual) D-Dimer ABG pH POC ABG pCO2 POC ABG pO2 ABG pO2 ABG HCO3 ABG O2 Saturation ABG Base Excess ABG Oxyhemoglobin ABG Sodium ABG Chloride ABG Glucose Oxyhemoglobin Carboxyhemoglobin Sodium Potassium Chloride Carbon Dioxide 31 H BUN 19 H Creatinine 0.2 L Glucose 112 H POC Glucose 326 H 220 H Hemoglobin A1c Magnesium Ferritin AST ALT Alkaline Phosphatase Lactate Dehydrogenase C-Reactive Protein Total Protein Albumin Arterial Blood Glucose Coronavirus (PCR) 06/27/21 06/27/21 06/27/21 07:29 10:54 15:49 WBC MCV MCH MCHC RDW Lymph % (Auto) [place] % (Auto) Eos % (Auto) Lymph # (Auto) [place] # (Auto) Eos # (Auto) Baso # (Auto) Seg Neutrophils % Seg Neuts % (Manual) Lymphocytes % (Manual) Seg Neutrophils # Seg Neutrophils # Man Lymphocytes # (Manual) D-Dimer ABG pH POC ABG pCO2 POC ABG pO2 ABG pO2 ABG HCO3 ABG O2 Saturation ABG Base Excess ABG Oxyhemoglobin ABG Sodium ABG Chloride ABG Glucose Oxyhemoglobin Carboxyhemoglobin Sodium Potassium Chloride Carbon Dioxide BUN Creatinine Glucose POC Glucose 115 H 228 H 240 H Hemoglobin A1c Magnesium Ferritin AST ALT Alkaline Phosphatase Lactate Dehydrogenase C-Reactive Protein Total Protein Albumin Arterial Blood Glucose Coronavirus (PCR) 06/28/21 06/28/21 06/28/21 05:43 05:43 07:13 WBC MCV MCH 33 H MCHC RDW 19.8 H Lymph % (Auto) [place] % (Auto) Eos % (Auto) Lymph # (Auto) [place] # (Auto) Eos # (Auto) Baso # (Auto) Seg Neutrophils % Seg Neuts % (Manual) Lymphocytes % (Manual) Seg Neutrophils # Seg Neutrophils # Man Lymphocytes # (Manual) D-Dimer ABG pH POC ABG pCO2 POC ABG pO2 ABG pO2 ABG HCO3 ABG O2 Saturation ABG Base Excess ABG Oxyhemoglobin ABG Sodium ABG Chloride ABG Glucose Oxyhemoglobin Carboxyhemoglobin Sodium Potassium 3.3 L Chloride Carbon Dioxide BUN 22 H Creatinine 0.2 L Glucose POC Glucose 69 L Hemoglobin A1c Magnesium Ferritin AST ALT 63 H Alkaline Phosphatase Lactate Dehydrogenase C-Reactive Protein Total Protein Albumin 3.3 L Arterial Blood Glucose Coronavirus (PCR) 06/28/21 06/28/21 06/28/21 12:18 15:37 21:01 WBC MCV MCH MCHC RDW Lymph % (Auto) [place] % (Auto) Eos % (Auto) Lymph # (Auto) [place] # (Auto) Eos # (Auto) Baso # (Auto) Seg Neutrophils % Seg Neuts % (Manual) Lymphocytes % (Manual) Seg Neutrophils # Seg Neutrophils # Man Lymphocytes # (Manual) D-Dimer ABG pH POC ABG pCO2 POC ABG pO2 ABG pO2 ABG HCO3 ABG O2 Saturation ABG Base Excess ABG Oxyhemoglobin ABG Sodium ABG Chloride ABG Glucose Oxyhemoglobin Carboxyhemoglobin Sodium Potassium Chloride Carbon Dioxide BUN Creatinine Glucose POC Glucose 154 H 201 H 191 H Hemoglobin A1c Magnesium Ferritin AST ALT Alkaline Phosphatase Lactate Dehydrogenase C-Reactive Protein Total Protein Albumin Arterial Blood Glucose Coronavirus (PCR) 06/29/21 06/29/21 06/29/21 11:55 15:47 21:06 WBC MCV MCH MCHC RDW Lymph % (Auto) [place] % (Auto) Eos % (Auto) Lymph # (Auto) [place] # (Auto) Eos # (Auto) Baso # (Auto) Seg Neutrophils % Seg Neuts % (Manual) Lymphocytes % (Manual) Seg Neutrophils # Seg Neutrophils # Man Lymphocytes # (Manual) D-Dimer ABG pH POC ABG pCO2 POC ABG pO2 ABG pO2 ABG HCO3 ABG O2 Saturation ABG Base Excess ABG Oxyhemoglobin ABG Sodium ABG Chloride ABG Glucose Oxyhemoglobin Carboxyhemoglobin Sodium Potassium Chloride Carbon Dioxide BUN Creatinine Glucose POC Glucose 238 H 249 H 155 H Hemoglobin A1c Magnesium Ferritin AST ALT Alkaline Phosphatase Lactate Dehydrogenase C-Reactive Protein Total Protein Albumin Arterial Blood Glucose Coronavirus (PCR) 06/30/21 06/30/21 06/30/21 04:00 07:50 11:50 WBC MCV MCH MCHC RDW Lymph % (Auto) [place] % (Auto) Eos % (Auto) Lymph # (Auto) [place] # (Auto) Eos # (Auto) Baso # (Auto) Seg Neutrophils % Seg Neuts % (Manual) Lymphocytes % (Manual) Seg Neutrophils # Seg Neutrophils # Man Lymphocytes # (Manual) D-Dimer ABG pH POC ABG pCO2 POC ABG pO2 ABG pO2 ABG HCO3 ABG O2 Saturation ABG Base Excess ABG Oxyhemoglobin ABG Sodium ABG Chloride ABG Glucose Oxyhemoglobin Carboxyhemoglobin Sodium Potassium 3.5 L Chloride Carbon Dioxide BUN 18 H Creatinine 0.3 L Glucose 111 H POC Glucose 117 H 250 H Hemoglobin A1c Magnesium Ferritin AST ALT Alkaline Phosphatase Lactate Dehydrogenase C-Reactive Protein Total Protein Albumin Arterial Blood Glucose Coronavirus (PCR) 06/30/21 06/30/21 07/01/21 16:05 21:02 07:26 WBC MCV MCH MCHC RDW Lymph % (Auto) [place] % (Auto) Eos % (Auto) Lymph # (Auto) [place] # (Auto) Eos # (Auto) Baso # (Auto) Seg Neutrophils % Seg Neuts % (Manual) Lymphocytes % (Manual) Seg Neutrophils # Seg Neutrophils # Man Lymphocytes # (Manual) D-Dimer ABG pH POC ABG pCO2 POC ABG pO2 ABG pO2 ABG HCO3 ABG O2 Saturation ABG Base Excess ABG Oxyhemoglobin ABG Sodium ABG Chloride ABG Glucose Oxyhemoglobin Carboxyhemoglobin Sodium Potassium Chloride Carbon Dioxide BUN Creatinine Glucose POC Glucose 250 H 217 H 111 H Hemoglobin A1c Magnesium Ferritin AST ALT Alkaline Phosphatase Lactate Dehydrogenase C-Reactive Protein Total Protein Albumin Arterial Blood Glucose Coronavirus (PCR) 07/01/21 07/01/21 07/01/21 11:06 15:48 21:31 WBC MCV MCH MCHC RDW Lymph % (Auto) [place] % (Auto) Eos % (Auto) Lymph # (Auto) [place] # (Auto) Eos # (Auto) Baso # (Auto) Seg Neutrophils % Seg Neuts % (Manual) Lymphocytes % (Manual) Seg Neutrophils # Seg Neutrophils # Man Lymphocytes # (Manual) D-Dimer ABG pH POC ABG pCO2 POC ABG pO2 ABG pO2 ABG HCO3 ABG O2 Saturation ABG Base Excess ABG Oxyhemoglobin ABG Sodium ABG Chloride ABG Glucose Oxyhemoglobin Carboxyhemoglobin Sodium Potassium Chloride Carbon Dioxide BUN Creatinine Glucose POC Glucose 229 H 239 H 199 H Hemoglobin A1c Magnesium Ferritin AST ALT Alkaline Phosphatase Lactate Dehydrogenase C-Reactive Protein Total Protein Albumin Arterial Blood Glucose Coronavirus (PCR) 07/02/21 07/02/21 07/02/21 11:50 16:44 21:49 WBC MCV MCH MCHC RDW Lymph % (Auto) [place] % (Auto) Eos % (Auto) Lymph # (Auto) [place] # (Auto) Eos # (Auto) Baso # (Auto) Seg Neutrophils % Seg Neuts % (Manual) Lymphocytes % (Manual) Seg Neutrophils # Seg Neutrophils # Man Lymphocytes # (Manual) D-Dimer ABG pH POC ABG pCO2 POC ABG pO2 ABG pO2 ABG HCO3 ABG O2 Saturation ABG Base Excess ABG Oxyhemoglobin ABG Sodium ABG Chloride ABG Glucose Oxyhemoglobin Carboxyhemoglobin Sodium Potassium Chloride Carbon Dioxide BUN Creatinine Glucose POC Glucose 230 H 203 H 197 H Hemoglobin A1c Magnesium Ferritin AST ALT Alkaline Phosphatase Lactate Dehydrogenase C-Reactive Protein Total Protein Albumin Arterial Blood Glucose Coronavirus (PCR) 07/03/21 07/03/21 07/03/21 05:46 05:46 11:59 WBC MCV MCH MCHC RDW 19.6 H Lymph % (Auto) [place] % (Auto) Eos % (Auto) Lymph # (Auto) [place] # (Auto) Eos # (Auto) Baso # (Auto) Seg Neutrophils % Seg Neuts % (Manual) Lymphocytes % (Manual) Seg Neutrophils # Seg Neutrophils # Man Lymphocytes # (Manual) D-Dimer ABG pH POC ABG pCO2 POC ABG pO2 ABG pO2 ABG HCO3 ABG O2 Saturation ABG Base Excess ABG Oxyhemoglobin ABG Sodium ABG Chloride ABG Glucose Oxyhemoglobin Carboxyhemoglobin Sodium Potassium 3.2 L Chloride Carbon Dioxide BUN Creatinine 0.3 L Glucose POC Glucose 145 H Hemoglobin A1c Magnesium Ferritin AST ALT Alkaline Phosphatase Lactate Dehydrogenase C-Reactive Protein Total Protein Albumin Arterial Blood Glucose Coronavirus (PCR) 07/03/21 07/03/21 07/04/21 16:40 22:00 06:35 WBC MCV MCH MCHC RDW Lymph % (Auto) [place] % (Auto) Eos % (Auto) Lymph # (Auto) [place] # (Auto) Eos # (Auto) Baso # (Auto) Seg Neutrophils % Seg Neuts % (Manual) Lymphocytes % (Manual) Seg Neutrophils # Seg Neutrophils # Man Lymphocytes # (Manual) D-Dimer ABG pH POC ABG pCO2 POC ABG pO2 ABG pO2 ABG HCO3 ABG O2 Saturation ABG Base Excess ABG Oxyhemoglobin ABG Sodium ABG Chloride ABG Glucose Oxyhemoglobin Carboxyhemoglobin Sodium Potassium Chloride Carbon Dioxide BUN Creatinine 0.3 L Glucose 118 H POC Glucose 176 H 127 H Hemoglobin A1c Magnesium Ferritin AST ALT Alkaline Phosphatase Lactate Dehydrogenase C-Reactive Protein Total Protein Albumin Arterial Blood Glucose Coronavirus (PCR) 07/04/21 07/04/21 07/05/21 12:30 16:38 08:37 WBC MCV MCH MCHC RDW Lymph % (Auto) [place] % (Auto) Eos % (Auto) Lymph # (Auto) [place] # (Auto) Eos # (Auto) Baso # (Auto) Seg Neutrophils % Seg Neuts % (Manual) Lymphocytes % (Manual) Seg Neutrophils # Seg Neutrophils # Man Lymphocytes # (Manual) D-Dimer ABG pH POC ABG pCO2 POC ABG pO2 ABG pO2 ABG HCO3 ABG O2 Saturation ABG Base Excess ABG Oxyhemoglobin ABG Sodium ABG Chloride ABG Glucose Oxyhemoglobin Carboxyhemoglobin Sodium Potassium Chloride Carbon Dioxide BUN Creatinine Glucose POC Glucose 162 H 205 H 115 H Hemoglobin A1c Magnesium Ferritin AST ALT Alkaline Phosphatase Lactate Dehydrogenase C-Reactive Protein Total Protein Albumin Arterial Blood Glucose Coronavirus (PCR) 07/05/21 07/05/21 07/05/21 10:57 16:42 21:14 WBC MCV MCH MCHC RDW Lymph % (Auto) [place] % (Auto) Eos % (Auto) Lymph # (Auto) [place] # (Auto) Eos # (Auto) Baso # (Auto) Seg Neutrophils % Seg Neuts % (Manual) Lymphocytes % (Manual) Seg Neutrophils # Seg Neutrophils # Man Lymphocytes # (Manual) D-Dimer ABG pH POC ABG pCO2 POC ABG pO2 ABG pO2 ABG HCO3 ABG O2 Saturation ABG Base Excess ABG Oxyhemoglobin ABG Sodium ABG Chloride ABG Glucose Oxyhemoglobin Carboxyhemoglobin Sodium Potassium Chloride Carbon Dioxide BUN Creatinine Glucose POC Glucose 151 H 184 H 130 H Hemoglobin A1c Magnesium Ferritin AST ALT Alkaline Phosphatase Lactate Dehydrogenase C-Reactive Protein Total Protein Albumin Arterial Blood Glucose Coronavirus (PCR) 07/06/21 07/06/21 07/06/21 07:31 11:49 16:46 WBC MCV MCH MCHC RDW Lymph % (Auto) [place] % (Auto) Eos % (Auto) Lymph # (Auto) [place] # (Auto) Eos # (Auto) Baso # (Auto) Seg Neutrophils % Seg Neuts % (Manual) Lymphocytes % (Manual) Seg Neutrophils # Seg Neutrophils # Man Lymphocytes # (Manual) D-Dimer ABG pH POC ABG pCO2 POC ABG pO2 ABG pO2 ABG HCO3 ABG O2 Saturation ABG Base Excess ABG Oxyhemoglobin ABG Sodium ABG Chloride ABG Glucose Oxyhemoglobin Carboxyhemoglobin Sodium Potassium Chloride Carbon Dioxide BUN Creatinine Glucose POC Glucose 106 H 173 H 205 H Hemoglobin A1c Magnesium Ferritin AST ALT Alkaline Phosphatase Lactate Dehydrogenase C-Reactive Protein Total Protein Albumin Arterial Blood Glucose Coronavirus (PCR) 10/07/07/21 07/07/21 21:38 06:00 06:00 WBC 16.1 H MCV MCH MCHC RDW 18.8 H Lymph % (Auto) [place] % (Auto) Eos % (Auto) Lymph # (Auto) [place] # (Auto) 1.1 H Eos # (Auto) Baso # (Auto) 0.2 H Seg Neutrophils % 74.9 H Seg Neuts % (Manual) Lymphocytes % (Manual) Seg Neutrophils # 12.1 H Seg Neutrophils # Man Lymphocytes # (Manual) D-Dimer ABG pH POC ABG pCO2 POC ABG pO2 ABG pO2 ABG HCO3 ABG O2 Saturation ABG Base Excess ABG Oxyhemoglobin ABG Sodium ABG Chloride ABG Glucose Oxyhemoglobin Carboxyhemoglobin Sodium Potassium 3.5 L D Chloride Carbon Dioxide BUN 6 L Creatinine < 0.2 L Glucose 106 H POC Glucose 120 H Hemoglobin A1c Magnesium Ferritin AST ALT Alkaline Phosphatase Lactate Dehydrogenase C-Reactive Protein Total Protein Albumin Arterial Blood Glucose Coronavirus (PCR) 07/07/21 07/07/21 07/07/21 07:10 11:53 15:53 WBC MCV MCH MCHC RDW Lymph % (Auto) [place] % (Auto) Eos % (Auto) Lymph # (Auto) [place] # (Auto) Eos # (Auto) Baso # (Auto) Seg Neutrophils % Seg Neuts % (Manual) Lymphocytes % (Manual) Seg Neutrophils # Seg Neutrophils # Man Lymphocytes # (Manual) D-Dimer ABG pH POC ABG pCO2 POC ABG pO2 ABG pO2 ABG HCO3 ABG O2 Saturation ABG Base Excess ABG Oxyhemoglobin ABG Sodium ABG Chloride ABG Glucose Oxyhemoglobin Carboxyhemoglobin Sodium Potassium Chloride Carbon Dioxide BUN Creatinine Glucose POC Glucose 132 H 169 H 242 H Hemoglobin A1c Magnesium Ferritin AST ALT Alkaline Phosphatase Lactate Dehydrogenase C-Reactive Protein Total Protein Albumin Arterial Blood Glucose Coronavirus (PCR) 07/07/21 07/08/21 07/08/21 21:41 08:09 12:20 WBC MCV MCH MCHC RDW Lymph % (Auto) [place] % (Auto) Eos % (Auto) Lymph # (Auto) [place] # (Auto) Eos # (Auto) Baso # (Auto) Seg Neutrophils % Seg Neuts % (Manual) Lymphocytes % (Manual) Seg Neutrophils # Seg Neutrophils # Man Lymphocytes # (Manual) D-Dimer ABG pH POC ABG pCO2 POC ABG pO2 ABG pO2 ABG HCO3 ABG O2 Saturation ABG Base Excess ABG Oxyhemoglobin ABG Sodium ABG Chloride ABG Glucose Oxyhemoglobin Carboxyhemoglobin Sodium Potassium Chloride Carbon Dioxide BUN Creatinine Glucose POC Glucose 128 H 132 H 179 H Hemoglobin A1c Magnesium Ferritin AST ALT Alkaline Phosphatase Lactate Dehydrogenase C-Reactive Protein Total Protein Albumin Arterial Blood Glucose Coronavirus (PCR) 07/08/21 07/08/21 07/08/21 16:37 21:45 22:44 WBC MCV MCH MCHC RDW Lymph % (Auto) [place] % (Auto) Eos % (Auto) Lymph # (Auto) [place] # (Auto) Eos # (Auto) Baso # (Auto) Seg Neutrophils % Seg Neuts % (Manual) Lymphocytes % (Manual) Seg Neutrophils # Seg Neutrophils # Man Lymphocytes # (Manual) D-Dimer ABG pH POC ABG pCO2 POC ABG pO2 ABG pO2 ABG HCO3 ABG O2 Saturation ABG Base Excess ABG Oxyhemoglobin ABG Sodium ABG Chloride ABG Glucose Oxyhemoglobin Carboxyhemoglobin Sodium Potassium Chloride Carbon Dioxide BUN Creatinine Glucose POC Glucose 192 H 51 L 137 H Hemoglobin A1c Magnesium Ferritin AST ALT Alkaline Phosphatase Lactate Dehydrogenase C-Reactive Protein Total Protein Albumin Arterial Blood Glucose Coronavirus (PCR) 07/09/21 07/09/21 07/09/21 04:45 04:45 04:45 WBC MCV MCH MCHC RDW 18.3 H Lymph % (Auto) [place] % (Auto) Eos % (Auto) Lymph # (Auto) [place] # (Auto) Eos # (Auto) Baso # (Auto) Seg Neutrophils % Seg Neuts % (Manual) 82.0 H Lymphocytes % (Manual) 13.0 L Seg Neutrophils # Seg Neutrophils # Man 7.8 H Lymphocytes # (Manual) D-Dimer 638.35 H ABG pH POC ABG pCO2 POC ABG pO2 ABG pO2 ABG HCO3 ABG O2 Saturation ABG Base Excess ABG Oxyhemoglobin ABG Sodium ABG Chloride ABG Glucose Oxyhemoglobin Carboxyhemoglobin Sodium Potassium Chloride 96.9 L Carbon Dioxide 35 H BUN Creatinine 0.2 L Glucose 135 H POC Glucose Hemoglobin A1c Magnesium Ferritin AST ALT Alkaline Phosphatase Lactate Dehydrogenase C-Reactive Protein 4.30 H Total Protein Albumin Arterial Blood Glucose Coronavirus (PCR) 07/09/21 07/09/21 07/09/21 05:19 07:36 11:16 WBC MCV MCH MCHC RDW Lymph % (Auto) [place] % (Auto) Eos % (Auto) Lymph # (Auto) [place] # (Auto) Eos # (Auto) Baso # (Auto) Seg Neutrophils % Seg Neuts % (Manual) Lymphocytes % (Manual) Seg Neutrophils # Seg Neutrophils # Man Lymphocytes # (Manual) D-Dimer ABG pH POC ABG pCO2 POC ABG pO2 ABG pO2 ABG HCO3 ABG O2 Saturation ABG Base Excess ABG Oxyhemoglobin ABG Sodium ABG Chloride ABG Glucose Oxyhemoglobin Carboxyhemoglobin Sodium Potassium Chloride Carbon Dioxide BUN Creatinine Glucose POC Glucose 135 H 148 H 212 H Hemoglobin A1c Magnesium Ferritin AST ALT Alkaline Phosphatase Lactate Dehydrogenase C-Reactive Protein Total Protein Albumin Arterial Blood Glucose Coronavirus (PCR) 07/09/21 07/09/21 07/10/21 15:21 21:12 05:40 WBC MCV MCH MCHC RDW Lymph % (Auto) [place] % (Auto) Eos % (Auto) Lymph # (Auto) [place] # (Auto) Eos # (Auto) Baso # (Auto) Seg Neutrophils % Seg Neuts % (Manual) Lymphocytes % (Manual) Seg Neutrophils # Seg Neutrophils # Man Lymphocytes # (Manual) D-Dimer ABG pH POC ABG pCO2 POC ABG pO2 ABG pO2 ABG HCO3 ABG O2 Saturation ABG Base Excess ABG Oxyhemoglobin ABG Sodium ABG Chloride ABG Glucose Oxyhemoglobin Carboxyhemoglobin Sodium Potassium 3.3 L Chloride 95.1 L Carbon Dioxide 39 H BUN Creatinine 0.2 L Glucose 122 H POC Glucose 128 H 196 H Hemoglobin A1c Magnesium Ferritin AST ALT Alkaline Phosphatase Lactate Dehydrogenase C-Reactive Protein Total Protein Albumin Arterial Blood Glucose Coronavirus (PCR) 07/10/21 07/10/21 07/10/21 07:38 11:15 16:29 WBC MCV MCH MCHC RDW Lymph % (Auto) [place] % (Auto) Eos % (Auto) Lymph # (Auto) [place] # (Auto) Eos # (Auto) Baso # (Auto) Seg Neutrophils % Seg Neuts % (Manual) Lymphocytes % (Manual) Seg Neutrophils # Seg Neutrophils # Man Lymphocytes # (Manual) D-Dimer ABG pH POC ABG pCO2 POC ABG pO2 ABG pO2 ABG HCO3 ABG O2 Saturation ABG Base Excess ABG Oxyhemoglobin ABG Sodium ABG Chloride ABG Glucose Oxyhemoglobin Carboxyhemoglobin Sodium Potassium Chloride Carbon Dioxide BUN Creatinine Glucose POC Glucose 128 H 175 H 174 H Hemoglobin A1c Magnesium Ferritin AST ALT Alkaline Phosphatase Lactate Dehydrogenase C-Reactive Protein Total Protein Albumin Arterial Blood Glucose Coronavirus (PCR) 07/10/21 07/11/21 07/11/21 20:49 05:50 12:08 WBC MCV MCH MCHC RDW Lymph % (Auto) [place] % (Auto) Eos % (Auto) Lymph # (Auto) [place] # (Auto) Eos # (Auto) Baso # (Auto) Seg Neutrophils % Seg Neuts % (Manual) Lymphocytes % (Manual) Seg Neutrophils # Seg Neutrophils # Man Lymphocytes # (Manual) D-Dimer ABG pH POC ABG pCO2 POC ABG pO2 ABG pO2 ABG HCO3 ABG O2 Saturation ABG Base Excess ABG Oxyhemoglobin ABG Sodium ABG Chloride ABG Glucose Oxyhemoglobin Carboxyhemoglobin Sodium Potassium Chloride 97.3 L Carbon Dioxide 34 H BUN Creatinine 0.2 L Glucose 109 H POC Glucose 142 H 220 H Hemoglobin A1c Magnesium Ferritin AST ALT Alkaline Phosphatase Lactate Dehydrogenase C-Reactive Protein Total Protein Albumin Arterial Blood Glucose Coronavirus (PCR) 07/11/21 07/11/21 07/12/21 17:09 21:55 07:36 WBC MCV MCH MCHC RDW Lymph % (Auto) [place] % (Auto) Eos % (Auto) Lymph # (Auto) [place] # (Auto) Eos # (Auto) Baso # (Auto) Seg Neutrophils % Seg Neuts % (Manual) Lymphocytes % (Manual) Seg Neutrophils # Seg Neutrophils # Man Lymphocytes # (Manual) D-Dimer ABG pH POC ABG pCO2 POC ABG pO2 ABG pO2 ABG HCO3 ABG O2 Saturation ABG Base Excess ABG Oxyhemoglobin ABG Sodium ABG Chloride ABG Glucose Oxyhemoglobin Carboxyhemoglobin Sodium Potassium Chloride Carbon Dioxide BUN Creatinine Glucose POC Glucose 219 H 124 H 114 H Hemoglobin A1c Magnesium Ferritin AST ALT Alkaline Phosphatase Lactate Dehydrogenase C-Reactive Protein Total Protein Albumin Arterial Blood Glucose Coronavirus (PCR) 07/12/21 07/12/21 07/12/21 11:08 15:43 22:20 WBC MCV MCH MCHC RDW Lymph % (Auto) [place] % (Auto) Eos % (Auto) Lymph # (Auto) [place] # (Auto) Eos # (Auto) Baso # (Auto) Seg Neutrophils % Seg Neuts % (Manual) Lymphocytes % (Manual) Seg Neutrophils # Seg Neutrophils # Man Lymphocytes # (Manual) D-Dimer ABG pH POC ABG pCO2 POC ABG pO2 ABG pO2 ABG HCO3 ABG O2 Saturation ABG Base Excess ABG Oxyhemoglobin ABG Sodium ABG Chloride ABG Glucose Oxyhemoglobin Carboxyhemoglobin Sodium Potassium Chloride Carbon Dioxide BUN Creatinine Glucose POC Glucose 195 H 276 H 189 H Hemoglobin A1c Magnesium Ferritin AST ALT Alkaline Phosphatase Lactate Dehydrogenase C-Reactive Protein Total Protein Albumin Arterial Blood Glucose Coronavirus (PCR) 07/13/21 07/13/21 07/13/21 08:01 08:08 10:17 WBC MCV MCH MCHC RDW Lymph % (Auto) [place] % (Auto) Eos % (Auto) Lymph # (Auto) [place] # (Auto) Eos # (Auto) Baso # (Auto) Seg Neutrophils % Seg Neuts % (Manual) Lymphocytes % (Manual) Seg Neutrophils # Seg Neutrophils # Man Lymphocytes # (Manual) D-Dimer ABG pH POC ABG pCO2 POC ABG pO2 ABG pO2 ABG HCO3 ABG O2 Saturation ABG Base Excess ABG Oxyhemoglobin ABG Sodium ABG Chloride ABG Glucose Oxyhemoglobin Carboxyhemoglobin Sodium Potassium Chloride 94.4 L Carbon Dioxide 34 H BUN Creatinine 0.3 L Glucose 149 H POC Glucose 132 H 265 H Hemoglobin A1c Magnesium Ferritin AST ALT Alkaline Phosphatase Lactate Dehydrogenase C-Reactive Protein Total Protein Albumin Arterial Blood Glucose Coronavirus (PCR) 07/13/21 07/13/21 07/14/21 17:58 21:41 07:34 WBC MCV MCH MCHC RDW Lymph % (Auto) [place] % (Auto) Eos % (Auto) Lymph # (Auto) [place] # (Auto) Eos # (Auto) Baso # (Auto) Seg Neutrophils % Seg Neuts % (Manual) Lymphocytes % (Manual) Seg Neutrophils # Seg Neutrophils # Man Lymphocytes # (Manual) D-Dimer ABG pH POC ABG pCO2 POC ABG pO2 ABG pO2 ABG HCO3 ABG O2 Saturation ABG Base Excess ABG Oxyhemoglobin ABG Sodium ABG Chloride ABG Glucose Oxyhemoglobin Carboxyhemoglobin Sodium Potassium Chloride Carbon Dioxide BUN Creatinine Glucose POC Glucose 217 H 223 H 116 H Hemoglobin A1c Magnesium Ferritin AST ALT Alkaline Phosphatase Lactate Dehydrogenase C-Reactive Protein Total Protein Albumin Arterial Blood Glucose Coronavirus (PCR) 07/14/21 07/14/21 07/14/21 10:50 17:33 20:51 WBC MCV MCH MCHC RDW Lymph % (Auto) [place] % (Auto) Eos % (Auto) Lymph # (Auto) [place] # (Auto) Eos # (Auto) Baso # (Auto) Seg Neutrophils % Seg Neuts % (Manual) Lymphocytes % (Manual) Seg Neutrophils # Seg Neutrophils # Man Lymphocytes # (Manual) D-Dimer ABG pH POC ABG pCO2 POC ABG pO2 ABG pO2 ABG HCO3 ABG O2 Saturation ABG Base Excess ABG Oxyhemoglobin ABG Sodium ABG Chloride ABG Glucose Oxyhemoglobin Carboxyhemoglobin Sodium Potassium Chloride Carbon Dioxide BUN Creatinine Glucose POC Glucose 191 H 173 H 132 H Hemoglobin A1c Magnesium Ferritin AST ALT Alkaline Phosphatase Lactate Dehydrogenase C-Reactive Protein Total Protein Albumin Arterial Blood Glucose Coronavirus (PCR) 07/15/21 07/15/21 07/15/21 04:00 07:59 12:31 WBC MCV MCH MCHC RDW Lymph % (Auto) [place] % (Auto) Eos % (Auto) Lymph # (Auto) [place] # (Auto) Eos # (Auto) Baso # (Auto) Seg Neutrophils % Seg Neuts % (Manual) Lymphocytes % (Manual) Seg Neutrophils # Seg Neutrophils # Man Lymphocytes # (Manual) D-Dimer ABG pH POC ABG pCO2 POC ABG pO2 ABG pO2 ABG HCO3 ABG O2 Saturation ABG Base Excess ABG Oxyhemoglobin ABG Sodium ABG Chloride ABG Glucose Oxyhemoglobin Carboxyhemoglobin Sodium Potassium Chloride 96.0 L Carbon Dioxide 32 H BUN Creatinine 0.3 L Glucose 208 H POC Glucose 117 H 195 H Hemoglobin A1c Magnesium Ferritin AST ALT Alkaline Phosphatase Lactate Dehydrogenase C-Reactive Protein Total Protein Albumin Arterial Blood Glucose Coronavirus (PCR) 07/15/21 07/15/21 07/16/21 18:00 20:57 04:40 WBC MCV MCH MCHC RDW 17.1 H Lymph % (Auto) [place] % (Auto) Eos % (Auto) Lymph # (Auto) [place] # (Auto) Eos # (Auto) Baso # (Auto) Seg Neutrophils % Seg Neuts % (Manual) Lymphocytes % (Manual) Seg Neutrophils # Seg Neutrophils # Man Lymphocytes # (Manual) D-Dimer ABG pH POC ABG pCO2 POC ABG pO2 ABG pO2 ABG HCO3 ABG O2 Saturation ABG Base Excess ABG Oxyhemoglobin ABG Sodium ABG Chloride ABG Glucose Oxyhemoglobin Carboxyhemoglobin Sodium Potassium Chloride Carbon Dioxide BUN Creatinine Glucose POC Glucose 217 H 111 H Hemoglobin A1c Magnesium Ferritin AST ALT Alkaline Phosphatase Lactate Dehydrogenase C-Reactive Protein Total Protein Albumin Arterial Blood Glucose Coronavirus (PCR) 07/16/21 07/16/21 07/16/21 04:40 07:08 11:11 WBC MCV MCH MCHC RDW Lymph % (Auto) [place] % (Auto) Eos % (Auto) Lymph # (Auto) [place] # (Auto) Eos # (Auto) Baso # (Auto) Seg Neutrophils % Seg Neuts % (Manual) Lymphocytes % (Manual) Seg Neutrophils # Seg Neutrophils # Man Lymphocytes # (Manual) D-Dimer ABG pH POC ABG pCO2 POC ABG pO2 ABG pO2 ABG HCO3 ABG O2 Saturation ABG Base Excess ABG Oxyhemoglobin ABG Sodium ABG Chloride ABG Glucose Oxyhemoglobin Carboxyhemoglobin Sodium Potassium 3.4 L Chloride 94.6 L Carbon Dioxide 36 H BUN Creatinine < 0.2 L Glucose 101 H POC Glucose 118 H 184 H Hemoglobin A1c Magnesium Ferritin AST ALT Alkaline Phosphatase Lactate Dehydrogenase C-Reactive Protein Total Protein Albumin Arterial Blood Glucose Coronavirus (PCR) 07/16/21 07/16/21 07/17/21 17:29 22:01 08:10 WBC MCV MCH MCHC RDW Lymph % (Auto) [place] % (Auto) Eos % (Auto) Lymph # (Auto) [place] # (Auto) Eos # (Auto) Baso # (Auto) Seg Neutrophils % Seg Neuts % (Manual) Lymphocytes % (Manual) Seg Neutrophils # Seg Neutrophils # Man Lymphocytes # (Manual) D-Dimer ABG pH POC ABG pCO2 POC ABG pO2 ABG pO2 ABG HCO3 ABG O2 Saturation ABG Base Excess ABG Oxyhemoglobin ABG Sodium ABG Chloride ABG Glucose Oxyhemoglobin Carboxyhemoglobin Sodium Potassium Chloride Carbon Dioxide BUN Creatinine Glucose POC Glucose 200 H 147 H 118 H Hemoglobin A1c Magnesium Ferritin AST ALT Alkaline Phosphatase Lactate Dehydrogenase C-Reactive Protein Total Protein Albumin Arterial Blood Glucose Coronavirus (PCR) 07/17/21 07/17/21 07/17/21 11:38 16:24 21:13 WBC MCV MCH MCHC RDW Lymph % (Auto) [place] % (Auto) Eos % (Auto) Lymph # (Auto) [place] # (Auto) Eos # (Auto) Baso # (Auto) Seg Neutrophils % Seg Neuts % (Manual) Lymphocytes % (Manual) Seg Neutrophils # Seg Neutrophils # Man Lymphocytes # (Manual) D-Dimer ABG pH POC ABG pCO2 POC ABG pO2 ABG pO2 ABG HCO3 ABG O2 Saturation ABG Base Excess ABG Oxyhemoglobin ABG Sodium ABG Chloride ABG Glucose Oxyhemoglobin Carboxyhemoglobin Sodium Potassium Chloride Carbon Dioxide BUN Creatinine Glucose POC Glucose 151 H 268 H 115 H Hemoglobin A1c Magnesium Ferritin AST ALT Alkaline Phosphatase Lactate Dehydrogenase C-Reactive Protein Total Protein Albumin Arterial Blood Glucose Coronavirus (PCR) 07/18/21 07/18/21 07/18/21 07:58 12:29 20:24 WBC MCV MCH MCHC RDW Lymph % (Auto) [place] % (Auto) Eos % (Auto) Lymph # (Auto) [place] # (Auto) Eos # (Auto) Baso # (Auto) Seg Neutrophils % Seg Neuts % (Manual) Lymphocytes % (Manual) Seg Neutrophils # Seg Neutrophils # Man Lymphocytes # (Manual) D-Dimer ABG pH POC ABG pCO2 POC ABG pO2 ABG pO2 ABG HCO3 ABG O2 Saturation ABG Base Excess ABG Oxyhemoglobin ABG Sodium ABG Chloride ABG Glucose Oxyhemoglobin Carboxyhemoglobin Sodium Potassium Chloride Carbon Dioxide BUN Creatinine Glucose POC Glucose 135 H 139 H 130 H Hemoglobin A1c Magnesium Ferritin AST ALT Alkaline Phosphatase Lactate Dehydrogenase C-Reactive Protein Total Protein Albumin Arterial Blood Glucose Coronavirus (PCR) 07/19/21 07/19/21 07/19/21 06:55 06:55 07:54 WBC 14.5 H MCV MCH MCHC RDW 17.3 H Lymph % (Auto) 9.6 L [place] % (Auto) Eos % (Auto) Lymph # (Auto) [place] # (Auto) Eos # (Auto) 0.6 H Baso # (Auto) Seg Neutrophils % 80.3 H Seg Neuts % (Manual) Lymphocytes % (Manual) Seg Neutrophils # 11.7 H Seg Neutrophils # Man Lymphocytes # (Manual) D-Dimer ABG pH POC ABG pCO2 67.9 H POC ABG pO2 131.0 H ABG pO2 ABG HCO3 ABG O2 Saturation ABG Base Excess ABG Oxyhemoglobin ABG Sodium ABG Chloride 97.0 L ABG Glucose 133 H Oxyhemoglobin Carboxyhemoglobin Sodium Potassium Chloride 95.3 L Carbon Dioxide 35 H BUN Creatinine < 0.2 L Glucose 138 H POC Glucose Hemoglobin A1c Magnesium Ferritin AST ALT Alkaline Phosphatase Lactate Dehydrogenase C-Reactive Protein Total Protein Albumin Arterial Blood Glucose 133 H Coronavirus (PCR) 07/19/21 07/19/21 07/19/21 08:10 11:43 17:04 WBC MCV MCH MCHC RDW Lymph % (Auto) [place] % (Auto) Eos % (Auto) Lymph # (Auto) [place] # (Auto) Eos # (Auto) Baso # (Auto) Seg Neutrophils % Seg Neuts % (Manual) Lymphocytes % (Manual) Seg Neutrophils # Seg Neutrophils # Man Lymphocytes # (Manual) D-Dimer ABG pH POC ABG pCO2 POC ABG pO2 ABG pO2 ABG HCO3 ABG O2 Saturation ABG Base Excess ABG Oxyhemoglobin ABG Sodium ABG Chloride ABG Glucose Oxyhemoglobin Carboxyhemoglobin Sodium Potassium Chloride Carbon Dioxide BUN Creatinine Glucose POC Glucose 129 H 126 H 108 H Hemoglobin A1c Magnesium Ferritin AST ALT Alkaline Phosphatase Lactate Dehydrogenase C-Reactive Protein Total Protein Albumin Arterial Blood Glucose Coronavirus (PCR) 07/19/21 07/20/21 07/20/21 21:10 04:00 04:00 WBC MCV MCH MCHC RDW 17.0 H Lymph % (Auto) [place] % (Auto) 8.9 H Eos % (Auto) 6.3 H Lymph # (Auto) [place] # (Auto) 0.9 H Eos # (Auto) 0.6 H Baso # (Auto) Seg Neutrophils % 70.2 H Seg Neuts % (Manual) Lymphocytes % (Manual) Seg Neutrophils # Seg Neutrophils # Man Lymphocytes # (Manual) D-Dimer ABG pH POC ABG pCO2 POC ABG pO2 ABG pO2 ABG HCO3 ABG O2 Saturation ABG Base Excess ABG Oxyhemoglobin ABG Sodium ABG Chloride ABG Glucose Oxyhemoglobin Carboxyhemoglobin Sodium Potassium Chloride 96.7 L Carbon Dioxide 36 H BUN Creatinine 0.2 L Glucose 102 H POC Glucose 109 H Hemoglobin A1c Magnesium Ferritin AST ALT Alkaline Phosphatase Lactate Dehydrogenase C-Reactive Protein Total Protein Albumin 3.2 L Arterial Blood Glucose Coronavirus (PCR) 07/20/21 07/20/21 07/20/21 11:15 15:34 17:01 WBC MCV MCH MCHC RDW Lymph % (Auto) [place] % (Auto) Eos % (Auto) Lymph # (Auto) [place] # (Auto) Eos # (Auto) Baso # (Auto) Seg Neutrophils % Seg Neuts % (Manual) Lymphocytes % (Manual) Seg Neutrophils # Seg Neutrophils # Man Lymphocytes # (Manual) D-Dimer ABG pH POC ABG pCO2 POC ABG pO2 ABG pO2 ABG HCO3 ABG O2 Saturation ABG Base Excess ABG Oxyhemoglobin ABG Sodium ABG Chloride ABG Glucose Oxyhemoglobin Carboxyhemoglobin Sodium Potassium Chloride Carbon Dioxide BUN Creatinine Glucose POC Glucose 109 H 152 H 125 H Hemoglobin A1c Magnesium Ferritin AST ALT Alkaline Phosphatase Lactate Dehydrogenase C-Reactive Protein Total Protein Albumin Arterial Blood Glucose Coronavirus (PCR) 07/20/21 07/21/21 07/21/21 21:00 04:48 04:48 WBC 12.8 H MCV MCH MCHC RDW 16.8 H Lymph % (Auto) 9.3 L [place] % (Auto) Eos % (Auto) Lymph # (Auto) [place] # (Auto) 0.9 H Eos # (Auto) Baso # (Auto) Seg Neutrophils % 81.1 H Seg Neuts % (Manual) Lymphocytes % (Manual) Seg Neutrophils # 10.4 H Seg Neutrophils # Man Lymphocytes # (Manual) D-Dimer ABG pH POC ABG pCO2 POC ABG pO2 ABG pO2 ABG HCO3 ABG O2 Saturation ABG Base Excess ABG Oxyhemoglobin ABG Sodium ABG Chloride ABG Glucose Oxyhemoglobin Carboxyhemoglobin Sodium Potassium Chloride 95.4 L Carbon Dioxide 33 H BUN 6 L Creatinine < 0.2 L Glucose 155 H POC Glucose 211 H Hemoglobin A1c Magnesium 1.60 L Ferritin AST ALT Alkaline Phosphatase Lactate Dehydrogenase C-Reactive Protein Total Protein Albumin Arterial Blood Glucose Coronavirus (PCR) 07/21/21 07/21/21 07/21/21 07:52 11:05 17:01 WBC MCV MCH MCHC RDW Lymph % (Auto) [place] % (Auto) Eos % (Auto) Lymph # (Auto) [place] # (Auto) Eos # (Auto) Baso # (Auto) Seg Neutrophils % Seg Neuts % (Manual) Lymphocytes % (Manual) Seg Neutrophils # Seg Neutrophils # Man Lymphocytes # (Manual) D-Dimer ABG pH POC ABG pCO2 POC ABG pO2 ABG pO2 ABG HCO3 ABG O2 Saturation ABG Base Excess ABG Oxyhemoglobin ABG Sodium ABG Chloride ABG Glucose Oxyhemoglobin Carboxyhemoglobin Sodium Potassium Chloride Carbon Dioxide BUN Creatinine Glucose POC Glucose 116 H 207 H 133 H Hemoglobin A1c Magnesium Ferritin AST ALT Alkaline Phosphatase Lactate Dehydrogenase C-Reactive Protein Total Protein Albumin Arterial Blood Glucose Coronavirus (PCR) 07/21/21 07/22/21 07/22/21 21:17 07:55 07:55 WBC MCV MCH MCHC RDW 16.5 H Lymph % (Auto) [place] % (Auto) 8.6 H Eos % (Auto) Lymph # (Auto) [place] # (Auto) Eos # (Auto) Baso # (Auto) Seg Neutrophils % 72.3 H Seg Neuts % (Manual) Lymphocytes % (Manual) Seg Neutrophils # Seg Neutrophils # Man Lymphocytes # (Manual) D-Dimer ABG pH POC ABG pCO2 POC ABG pO2 ABG pO2 ABG HCO3 ABG O2 Saturation ABG Base Excess ABG Oxyhemoglobin ABG Sodium ABG Chloride ABG Glucose Oxyhemoglobin Carboxyhemoglobin Sodium Potassium Chloride 94.6 L Carbon Dioxide 42 H* D BUN 5 L Creatinine < 0.2 L Glucose POC Glucose 152 H Hemoglobin A1c Magnesium Ferritin AST ALT Alkaline Phosphatase Lactate Dehydrogenase C-Reactive Protein Total Protein Albumin Arterial Blood Glucose Coronavirus (PCR) 07/22/21 07/22/21 07/22/21 11:25 12:05 15:40 WBC MCV MCH MCHC RDW Lymph % (Auto) [place] % (Auto) Eos % (Auto) Lymph # (Auto) [place] # (Auto) Eos # (Auto) Baso # (Auto) Seg Neutrophils % Seg Neuts % (Manual) Lymphocytes % (Manual) Seg Neutrophils # Seg Neutrophils # Man Lymphocytes # (Manual) D-Dimer ABG pH 7.338 L POC ABG pCO2 POC ABG pO2 ABG pO2 66.1 L ABG HCO3 45.0 H ABG O2 Saturation 94.2 L ABG Base Excess 15.2 H ABG Oxyhemoglobin ABG Sodium ABG Chloride ABG Glucose Oxyhemoglobin 91.9 L Carboxyhemoglobin Sodium Potassium Chloride Carbon Dioxide BUN Creatinine Glucose POC Glucose 146 H 219 H Hemoglobin A1c Magnesium Ferritin AST ALT Alkaline Phosphatase Lactate Dehydrogenase C-Reactive Protein Total Protein Albumin Arterial Blood Glucose Coronavirus (PCR) 07/22/21 07/23/21 07/23/21 21:26 04:35 04:35 WBC MCV 98 H MCH MCHC RDW 16.2 H Lymph % (Auto) 7.9 L [place] % (Auto) Eos % (Auto) Lymph # (Auto) 0.9 L [place] # (Auto) Eos # (Auto) Baso # (Auto) Seg Neutrophils % 85.3 H Seg Neuts % (Manual) Lymphocytes % (Manual) Seg Neutrophils # 9.2 H Seg Neutrophils # Man Lymphocytes # (Manual) D-Dimer ABG pH POC ABG pCO2 POC ABG pO2 ABG pO2 ABG HCO3 ABG O2 Saturation ABG Base Excess ABG Oxyhemoglobin ABG Sodium ABG Chloride ABG Glucose Oxyhemoglobin Carboxyhemoglobin Sodium Potassium Chloride 93.9 L Carbon Dioxide 44 H* BUN Creatinine < 0.2 L Glucose 149 H POC Glucose 131 H Hemoglobin A1c Magnesium Ferritin AST ALT Alkaline Phosphatase Lactate Dehydrogenase C-Reactive Protein Total Protein Albumin Arterial Blood Glucose Coronavirus (PCR) 07/23/21 07/23/21 07/23/21 07:20 11:34 16:11 WBC MCV MCH MCHC RDW Lymph % (Auto) [place] % (Auto) Eos % (Auto) Lymph # (Auto) [place] # (Auto) Eos # (Auto) Baso # (Auto) Seg Neutrophils % Seg Neuts % (Manual) Lymphocytes % (Manual) Seg Neutrophils # Seg Neutrophils # Man Lymphocytes # (Manual) D-Dimer ABG pH POC ABG pCO2 POC ABG pO2 ABG pO2 ABG HCO3 ABG O2 Saturation ABG Base Excess ABG Oxyhemoglobin ABG Sodium ABG Chloride ABG Glucose Oxyhemoglobin Carboxyhemoglobin Sodium Potassium Chloride Carbon Dioxide BUN Creatinine Glucose POC Glucose 116 H 172 H 110 H Hemoglobin A1c Magnesium Ferritin AST ALT Alkaline Phosphatase Lactate Dehydrogenase C-Reactive Protein Total Protein Albumin Arterial Blood Glucose Coronavirus (PCR) 07/23/21 07/23/21 07/24/21 18:11 21:33 04:10 WBC MCV MCH MCHC RDW Lymph % (Auto) [place] % (Auto) Eos % (Auto) Lymph # (Auto) [place] # (Auto) Eos # (Auto) Baso # (Auto) Seg Neutrophils % Seg Neuts % (Manual) Lymphocytes % (Manual) Seg Neutrophils # Seg Neutrophils # Man Lymphocytes # (Manual) D-Dimer ABG pH POC ABG pCO2 78.3 H POC ABG pO2 80.7 L ABG pO2 ABG HCO3 ABG O2 Saturation ABG Base Excess ABG Oxyhemoglobin ABG Sodium 134.9 L ABG Chloride 89.0 L ABG Glucose 200 H Oxyhemoglobin Carboxyhemoglobin Sodium Potassium 3.5 L D Chloride 92.4 L Carbon Dioxide 42 H* BUN Creatinine < 0.2 L Glucose 123 H POC Glucose 108 H Hemoglobin A1c Magnesium Ferritin AST ALT Alkaline Phosphatase Lactate Dehydrogenase C-Reactive Protein Total Protein Albumin Arterial Blood Glucose 200 H Coronavirus (PCR) 07/24/21 07/24/21 07/24/21 11:01 16:56 22:06 WBC MCV MCH MCHC RDW Lymph % (Auto) [place] % (Auto) Eos % (Auto) Lymph # (Auto) [place] # (Auto) Eos # (Auto) Baso # (Auto) Seg Neutrophils % Seg Neuts % (Manual) Lymphocytes % (Manual) Seg Neutrophils # Seg Neutrophils # Man Lymphocytes # (Manual) D-Dimer ABG pH POC ABG pCO2 POC ABG pO2 ABG pO2 ABG HCO3 ABG O2 Saturation ABG Base Excess ABG Oxyhemoglobin ABG Sodium ABG Chloride ABG Glucose Oxyhemoglobin Carboxyhemoglobin Sodium Potassium Chloride Carbon Dioxide BUN Creatinine Glucose POC Glucose 171 H 111 H 136 H Hemoglobin A1c Magnesium Ferritin AST ALT Alkaline Phosphatase Lactate Dehydrogenase C-Reactive Protein Total Protein Albumin Arterial Blood Glucose Coronavirus (PCR) 07/25/21 07/25/21 07/25/21 07:40 10:59 11:58 WBC MCV MCH MCHC RDW Lymph % (Auto) [place] % (Auto) Eos % (Auto) Lymph # (Auto) [place] # (Auto) Eos # (Auto) Baso # (Auto) Seg Neutrophils % Seg Neuts % (Manual) Lymphocytes % (Manual) Seg Neutrophils # Seg Neutrophils # Man Lymphocytes # (Manual) D-Dimer ABG pH POC ABG pCO2 POC ABG pO2 ABG pO2 ABG HCO3 ABG O2 Saturation ABG Base Excess ABG Oxyhemoglobin ABG Sodium ABG Chloride ABG Glucose Oxyhemoglobin Carboxyhemoglobin Sodium Potassium Chloride 88.6 L Carbon Dioxide 43 H* BUN Creatinine 0.2 L Glucose 180 H POC Glucose 120 H 153 H Hemoglobin A1c Magnesium Ferritin AST ALT Alkaline Phosphatase Lactate Dehydrogenase C-Reactive Protein Total Protein Albumin Arterial Blood Glucose Coronavirus (PCR) 07/25/21 07/25/21 07/26/21 16:03 20:18 09:56 WBC MCV MCH MCHC RDW Lymph % (Auto) [place] % (Auto) Eos % (Auto) Lymph # (Auto) [place] # (Auto) Eos # (Auto) Baso # (Auto) Seg Neutrophils % Seg Neuts % (Manual) Lymphocytes % (Manual) Seg Neutrophils # Seg Neutrophils # Man Lymphocytes # (Manual) D-Dimer ABG pH POC ABG pCO2 POC ABG pO2 ABG pO2 ABG HCO3 ABG O2 Saturation ABG Base Excess ABG Oxyhemoglobin ABG Sodium ABG Chloride ABG Glucose Oxyhemoglobin Carboxyhemoglobin Sodium Potassium Chloride 91.3 L Carbon Dioxide 45 H* BUN Creatinine < 0.2 L Glucose 128 H POC Glucose 143 H 133 H Hemoglobin A1c Magnesium Ferritin AST ALT Alkaline Phosphatase Lactate Dehydrogenase C-Reactive Protein Total Protein Albumin 3.2 L Arterial Blood Glucose Coronavirus (PCR) 07/26/21 07/26/21 07/27/21 17:56 21:24 07:10 WBC MCV MCH MCHC RDW Lymph % (Auto) [place] % (Auto) Eos % (Auto) Lymph # (Auto) [place] # (Auto) Eos # (Auto) Baso # (Auto) Seg Neutrophils % Seg Neuts % (Manual) Lymphocytes % (Manual) Seg Neutrophils # Seg Neutrophils # Man Lymphocytes # (Manual) D-Dimer ABG pH POC ABG pCO2 POC ABG pO2 ABG pO2 ABG HCO3 ABG O2 Saturation ABG Base Excess ABG Oxyhemoglobin ABG Sodium ABG Chloride ABG Glucose Oxyhemoglobin Carboxyhemoglobin Sodium Potassium Chloride Carbon Dioxide BUN Creatinine Glucose POC Glucose 170 H 122 H 119 H Hemoglobin A1c Magnesium Ferritin AST ALT Alkaline Phosphatase Lactate Dehydrogenase C-Reactive Protein Total Protein Albumin Arterial Blood Glucose Coronavirus (PCR) 07/27/21 07/27/21 07/28/21 11:44 21:31 07:30 WBC MCV MCH MCHC RDW Lymph % (Auto) [place] % (Auto) Eos % (Auto) Lymph # (Auto) [place] # (Auto) Eos # (Auto) Baso # (Auto) Seg Neutrophils % Seg Neuts % (Manual) Lymphocytes % (Manual) Seg Neutrophils # Seg Neutrophils # Man Lymphocytes # (Manual) D-Dimer ABG pH POC ABG pCO2 POC ABG pO2 ABG pO2 ABG HCO3 ABG O2 Saturation ABG Base Excess ABG Oxyhemoglobin ABG Sodium ABG Chloride ABG Glucose Oxyhemoglobin Carboxyhemoglobin Sodium Potassium 3.4 L D Chloride 91.4 L Carbon Dioxide 39 H BUN Creatinine < 0.2 L Glucose 140 H POC Glucose 176 H 162 H Hemoglobin A1c Magnesium Ferritin AST ALT Alkaline Phosphatase Lactate Dehydrogenase C-Reactive Protein Total Protein Albumin Arterial Blood Glucose Coronavirus (PCR) 07/28/21 07/28/21 07/28/21 08:43 12:25 16:40 WBC MCV MCH MCHC RDW Lymph % (Auto) [place] % (Auto) Eos % (Auto) Lymph # (Auto) [place] # (Auto) Eos # (Auto) Baso # (Auto) Seg Neutrophils % Seg Neuts % (Manual) Lymphocytes % (Manual) Seg Neutrophils # Seg Neutrophils # Man Lymphocytes # (Manual) D-Dimer ABG pH POC ABG pCO2 POC ABG pO2 ABG pO2 ABG HCO3 ABG O2 Saturation ABG Base Excess ABG Oxyhemoglobin ABG Sodium ABG Chloride ABG Glucose Oxyhemoglobin Carboxyhemoglobin Sodium Potassium Chloride Carbon Dioxide BUN Creatinine Glucose POC Glucose 122 H 162 H 234 H Hemoglobin A1c Magnesium Ferritin AST ALT Alkaline Phosphatase Lactate Dehydrogenase C-Reactive Protein Total Protein Albumin Arterial Blood Glucose Coronavirus (PCR) 07/28/21 07/29/21 07/29/21 21:27 04:40 09:51 WBC MCV MCH MCHC RDW Lymph % (Auto) [place] % (Auto) Eos % (Auto) Lymph # (Auto) [place] # (Auto) Eos # (Auto) Baso # (Auto) Seg Neutrophils % Seg Neuts % (Manual) Lymphocytes % (Manual) Seg Neutrophils # Seg Neutrophils # Man Lymphocytes # (Manual) D-Dimer ABG pH POC ABG pCO2 POC ABG pO2 ABG pO2 ABG HCO3 ABG O2 Saturation ABG Base Excess ABG Oxyhemoglobin ABG Sodium ABG Chloride ABG Glucose Oxyhemoglobin Carboxyhemoglobin Sodium Potassium 3.4 L Chloride 92.3 L Carbon Dioxide 40 H BUN Creatinine < 0.2 L Glucose 125 H POC Glucose 155 H 112 H Hemoglobin A1c Magnesium Ferritin AST ALT Alkaline Phosphatase Lactate Dehydrogenase C-Reactive Protein Total Protein Albumin Arterial Blood Glucose Coronavirus (PCR) 07/29/21 07/29/21 07/29/21 12:03 16:39 21:28 WBC MCV MCH MCHC RDW Lymph % (Auto) [place] % (Auto) Eos % (Auto) Lymph # (Auto) [place] # (Auto) Eos # (Auto) Baso # (Auto) Seg Neutrophils % Seg Neuts % (Manual) Lymphocytes % (Manual) Seg Neutrophils # Seg Neutrophils # Man Lymphocytes # (Manual) D-Dimer ABG pH POC ABG pCO2 POC ABG pO2 ABG pO2 ABG HCO3 ABG O2 Saturation ABG Base Excess ABG Oxyhemoglobin ABG Sodium ABG Chloride ABG Glucose Oxyhemoglobin Carboxyhemoglobin Sodium Potassium Chloride Carbon Dioxide BUN Creatinine Glucose POC Glucose 188 H 141 H 130 H Hemoglobin A1c Magnesium Ferritin AST ALT Alkaline Phosphatase Lactate Dehydrogenase C-Reactive Protein Total Protein Albumin Arterial Blood Glucose Coronavirus (PCR) 07/30/21 07/30/21 07/30/21 08:37 11:56 22:25 WBC MCV MCH MCHC RDW Lymph % (Auto) [place] % (Auto) Eos % (Auto) Lymph # (Auto) [place] # (Auto) Eos # (Auto) Baso # (Auto) Seg Neutrophils % Seg Neuts % (Manual) Lymphocytes % (Manual) Seg Neutrophils # Seg Neutrophils # Man Lymphocytes # (Manual) D-Dimer ABG pH POC ABG pCO2 POC ABG pO2 ABG pO2 ABG HCO3 ABG O2 Saturation ABG Base Excess ABG Oxyhemoglobin ABG Sodium ABG Chloride ABG Glucose Oxyhemoglobin Carboxyhemoglobin Sodium Potassium Chloride Carbon Dioxide BUN Creatinine Glucose POC Glucose 133 H 156 H 118 H Hemoglobin A1c Magnesium Ferritin AST ALT Alkaline Phosphatase Lactate Dehydrogenase C-Reactive Protein Total Protein Albumin Arterial Blood Glucose Coronavirus (PCR) 07/31/21 07/31/21 07/31/21 06:43 11:55 16:39 WBC MCV MCH MCHC RDW Lymph % (Auto) [place] % (Auto) Eos % (Auto) Lymph # (Auto) [place] # (Auto) Eos # (Auto) Baso # (Auto) Seg Neutrophils % Seg Neuts % (Manual) Lymphocytes % (Manual) Seg Neutrophils # Seg Neutrophils # Man Lymphocytes # (Manual) D-Dimer ABG pH POC ABG pCO2 POC ABG pO2 ABG pO2 ABG HCO3 ABG O2 Saturation ABG Base Excess ABG Oxyhemoglobin ABG Sodium ABG Chloride ABG Glucose Oxyhemoglobin Carboxyhemoglobin Sodium Potassium Chloride Carbon Dioxide BUN Creatinine Glucose POC Glucose 115 H 114 H 185 H Hemoglobin A1c Magnesium Ferritin AST ALT Alkaline Phosphatase Lactate Dehydrogenase C-Reactive Protein Total Protein Albumin Arterial Blood Glucose Coronavirus (PCR) 07/31/21 08/01/21 08/01/21 23:22 11:35 15:34 WBC MCV MCH MCHC RDW Lymph % (Auto) [place] % (Auto) Eos % (Auto) Lymph # (Auto) [place] # (Auto) Eos # (Auto) Baso # (Auto) Seg Neutrophils % Seg Neuts % (Manual) Lymphocytes % (Manual) Seg Neutrophils # Seg Neutrophils # Man Lymphocytes # (Manual) D-Dimer ABG pH POC ABG pCO2 POC ABG pO2 ABG pO2 ABG HCO3 ABG O2 Saturation ABG Base Excess ABG Oxyhemoglobin ABG Sodium ABG Chloride ABG Glucose Oxyhemoglobin Carboxyhemoglobin Sodium Potassium Chloride Carbon Dioxide BUN Creatinine Glucose POC Glucose 213 H 122 H 142 H Hemoglobin A1c Magnesium Ferritin AST ALT Alkaline Phosphatase Lactate Dehydrogenase C-Reactive Protein Total Protein Albumin Arterial Blood Glucose Coronavirus (PCR) 08/01/21 08/02/21 08/02/21 22:15 07:41 11:58 WBC MCV MCH MCHC RDW Lymph % (Auto) [place] % (Auto) Eos % (Auto) Lymph # (Auto) [place] # (Auto) Eos # (Auto) Baso # (Auto) Seg Neutrophils % Seg Neuts % (Manual) Lymphocytes % (Manual) Seg Neutrophils # Seg Neutrophils # Man Lymphocytes # (Manual) D-Dimer ABG pH POC ABG pCO2 POC ABG pO2 ABG pO2 ABG HCO3 ABG O2 Saturation ABG Base Excess ABG Oxyhemoglobin ABG Sodium ABG Chloride ABG Glucose Oxyhemoglobin Carboxyhemoglobin Sodium Potassium Chloride Carbon Dioxide BUN Creatinine Glucose POC Glucose 121 H 109 H 136 H Hemoglobin A1c Magnesium Ferritin AST ALT Alkaline Phosphatase Lactate Dehydrogenase C-Reactive Protein Total Protein Albumin Arterial Blood Glucose Coronavirus (PCR) 08/02/21 08/03/21 08/03/21 21:19 07:47 11:18 WBC MCV MCH MCHC RDW Lymph % (Auto) [place] % (Auto) Eos % (Auto) Lymph # (Auto) [place] # (Auto) Eos # (Auto) Baso # (Auto) Seg Neutrophils % Seg Neuts % (Manual) Lymphocytes % (Manual) Seg Neutrophils # Seg Neutrophils # Man Lymphocytes # (Manual) D-Dimer ABG pH POC ABG pCO2 POC ABG pO2 ABG pO2 ABG HCO3 ABG O2 Saturation ABG Base Excess ABG Oxyhemoglobin ABG Sodium ABG Chloride ABG Glucose Oxyhemoglobin Carboxyhemoglobin Sodium Potassium Chloride Carbon Dioxide BUN Creatinine Glucose POC Glucose 159 H 111 H 202 H Hemoglobin A1c Magnesium Ferritin AST ALT Alkaline Phosphatase Lactate Dehydrogenase C-Reactive Protein Total Protein Albumin Arterial Blood Glucose Coronavirus (PCR) 08/03/21 08/03/21 08/04/21 16:47 21:26 07:57 WBC MCV MCH MCHC RDW Lymph % (Auto) [place] % (Auto) Eos % (Auto) Lymph # (Auto) [place] # (Auto) Eos # (Auto) Baso # (Auto) Seg Neutrophils % Seg Neuts % (Manual) Lymphocytes % (Manual) Seg Neutrophils # Seg Neutrophils # Man Lymphocytes # (Manual) D-Dimer ABG pH POC ABG pCO2 POC ABG pO2 ABG pO2 ABG HCO3 ABG O2 Saturation ABG Base Excess ABG Oxyhemoglobin ABG Sodium ABG Chloride ABG Glucose Oxyhemoglobin Carboxyhemoglobin Sodium Potassium Chloride Carbon Dioxide BUN Creatinine Glucose POC Glucose 133 H 148 H 129 H Hemoglobin A1c Magnesium Ferritin AST ALT Alkaline Phosphatase Lactate Dehydrogenase C-Reactive Protein Total Protein Albumin Arterial Blood Glucose Coronavirus (PCR) 08/04/21 08/04/21 08/04/21 08:05 11:42 16:53 WBC MCV MCH MCHC RDW Lymph % (Auto) [place] % (Auto) Eos % (Auto) Lymph # (Auto) [place] # (Auto) Eos # (Auto) Baso # (Auto) Seg Neutrophils % Seg Neuts % (Manual) Lymphocytes % (Manual) Seg Neutrophils # Seg Neutrophils # Man Lymphocytes # (Manual) D-Dimer ABG pH POC ABG pCO2 POC ABG pO2 ABG pO2 ABG HCO3 ABG O2 Saturation ABG Base Excess ABG Oxyhemoglobin ABG Sodium ABG Chloride ABG Glucose Oxyhemoglobin Carboxyhemoglobin Sodium Potassium Chloride Carbon Dioxide BUN Creatinine Glucose POC Glucose 145 H 187 H 112 H Hemoglobin A1c Magnesium Ferritin AST ALT Alkaline Phosphatase Lactate Dehydrogenase C-Reactive Protein Total Protein Albumin Arterial Blood Glucose Coronavirus (PCR) 08/04/21 08/05/21 08/05/21 21:27 07:35 11:19 WBC MCV MCH MCHC RDW Lymph % (Auto) [place] % (Auto) Eos % (Auto) Lymph # (Auto) [place] # (Auto) Eos # (Auto) Baso # (Auto) Seg Neutrophils % Seg Neuts % (Manual) Lymphocytes % (Manual) Seg Neutrophils # Seg Neutrophils # Man Lymphocytes # (Manual) D-Dimer ABG pH POC ABG pCO2 POC ABG pO2 ABG pO2 ABG HCO3 ABG O2 Saturation ABG Base Excess ABG Oxyhemoglobin ABG Sodium ABG Chloride ABG Glucose Oxyhemoglobin Carboxyhemoglobin Sodium Potassium Chloride Carbon Dioxide BUN Creatinine Glucose POC Glucose 189 H 146 H 244 H Hemoglobin A1c Magnesium Ferritin AST ALT Alkaline Phosphatase Lactate Dehydrogenase C-Reactive Protein Total Protein Albumin Arterial Blood Glucose Coronavirus (PCR) 08/05/21 08/06/21 08/06/21 22:16 07:29 11:16 WBC MCV MCH MCHC RDW Lymph % (Auto) [place] % (Auto) Eos % (Auto) Lymph # (Auto) [place] # (Auto) Eos # (Auto) Baso # (Auto) Seg Neutrophils % Seg Neuts % (Manual) Lymphocytes % (Manual) Seg Neutrophils # Seg Neutrophils # Man Lymphocytes # (Manual) D-Dimer ABG pH POC ABG pCO2 POC ABG pO2 ABG pO2 ABG HCO3 ABG O2 Saturation ABG Base Excess ABG Oxyhemoglobin ABG Sodium ABG Chloride ABG Glucose Oxyhemoglobin Carboxyhemoglobin Sodium Potassium Chloride Carbon Dioxide BUN Creatinine Glucose POC Glucose 122 H 128 H 228 H Hemoglobin A1c Magnesium Ferritin AST ALT Alkaline Phosphatase Lactate Dehydrogenase C-Reactive Protein Total Protein Albumin Arterial Blood Glucose Coronavirus (PCR) 08/06/21 08/07/21 08/07/21 21:13 07:17 11:54 WBC MCV MCH MCHC RDW Lymph % (Auto) [place] % (Auto) Eos % (Auto) Lymph # (Auto) [place] # (Auto) Eos # (Auto) Baso # (Auto) Seg Neutrophils % Seg Neuts % (Manual) Lymphocytes % (Manual) Seg Neutrophils # Seg Neutrophils # Man Lymphocytes # (Manual) D-Dimer ABG pH POC ABG pCO2 POC ABG pO2 ABG pO2 ABG HCO3 ABG O2 Saturation ABG Base Excess ABG Oxyhemoglobin ABG Sodium ABG Chloride ABG Glucose Oxyhemoglobin Carboxyhemoglobin Sodium Potassium Chloride Carbon Dioxide BUN Creatinine Glucose POC Glucose 198 H 134 H 107 H Hemoglobin A1c Magnesium Ferritin AST ALT Alkaline Phosphatase Lactate Dehydrogenase C-Reactive Protein Total Protein Albumin Arterial Blood Glucose Coronavirus (PCR) 08/07/21 08/07/21 08/08/21 16:26 21:15 04:51 WBC MCV MCH MCHC RDW Lymph % (Auto) [place] % (Auto) Eos % (Auto) Lymph # (Auto) [place] # (Auto) Eos # (Auto) Baso # (Auto) Seg Neutrophils % Seg Neuts % (Manual) Lymphocytes % (Manual) Seg Neutrophils # Seg Neutrophils # Man Lymphocytes # (Manual) D-Dimer ABG pH POC ABG pCO2 POC ABG pO2 ABG pO2 ABG HCO3 ABG O2 Saturation ABG Base Excess ABG Oxyhemoglobin ABG Sodium ABG Chloride ABG Glucose Oxyhemoglobin Carboxyhemoglobin Sodium Potassium Chloride 92.9 L Carbon Dioxide 39 H BUN Creatinine < 0.2 L Glucose 105 H POC Glucose 144 H 228 H Hemoglobin A1c Magnesium Ferritin AST ALT Alkaline Phosphatase Lactate Dehydrogenase C-Reactive Protein Total Protein Albumin Arterial Blood Glucose Coronavirus (PCR) 08/08/21 08/08/21 08/08/21 11:40 17:09 21:22 WBC MCV MCH MCHC RDW Lymph % (Auto) [place] % (Auto) Eos % (Auto) Lymph # (Auto) [place] # (Auto) Eos # (Auto) Baso # (Auto) Seg Neutrophils % Seg Neuts % (Manual) Lymphocytes % (Manual) Seg Neutrophils # Seg Neutrophils # Man Lymphocytes # (Manual) D-Dimer ABG pH POC ABG pCO2 POC ABG pO2 ABG pO2 ABG HCO3 ABG O2 Saturation ABG Base Excess ABG Oxyhemoglobin ABG Sodium ABG Chloride ABG Glucose Oxyhemoglobin Carboxyhemoglobin Sodium Potassium Chloride Carbon Dioxide BUN Creatinine Glucose POC Glucose 137 H 137 H 152 H Hemoglobin A1c Magnesium Ferritin AST ALT Alkaline Phosphatase Lactate Dehydrogenase C-Reactive Protein Total Protein Albumin Arterial Blood Glucose Coronavirus (PCR) 08/09/21 08/09/21 08/09/21 07:42 12:26 16:41 WBC MCV MCH MCHC RDW Lymph % (Auto) [place] % (Auto) Eos % (Auto) Lymph # (Auto) [place] # (Auto) Eos # (Auto) Baso # (Auto) Seg Neutrophils % Seg Neuts % (Manual) Lymphocytes % (Manual) Seg Neutrophils # Seg Neutrophils # Man Lymphocytes # (Manual) D-Dimer ABG pH POC ABG pCO2 POC ABG pO2 ABG pO2 ABG HCO3 ABG O2 Saturation ABG Base Excess ABG Oxyhemoglobin ABG Sodium ABG Chloride ABG Glucose Oxyhemoglobin Carboxyhemoglobin Sodium Potassium Chloride Carbon Dioxide BUN Creatinine Glucose POC Glucose 120 H 132 H 116 H Hemoglobin A1c Magnesium Ferritin AST ALT Alkaline Phosphatase Lactate Dehydrogenase C-Reactive Protein Total Protein Albumin Arterial Blood Glucose Coronavirus (PCR) 08/09/21 08/10/21 08/10/21 21:13 07:41 11:33 WBC MCV MCH MCHC RDW Lymph % (Auto) [place] % (Auto) Eos % (Auto) Lymph # (Auto) [place] # (Auto) Eos # (Auto) Baso # (Auto) Seg Neutrophils % Seg Neuts % (Manual) Lymphocytes % (Manual) Seg Neutrophils # Seg Neutrophils # Man Lymphocytes # (Manual) D-Dimer ABG pH POC ABG pCO2 POC ABG pO2 ABG pO2 ABG HCO3 ABG O2 Saturation ABG Base Excess ABG Oxyhemoglobin ABG Sodium ABG Chloride ABG Glucose Oxyhemoglobin Carboxyhemoglobin Sodium Potassium Chloride Carbon Dioxide BUN Creatinine Glucose POC Glucose 205 H 125 H 125 H Hemoglobin A1c Magnesium Ferritin AST ALT Alkaline Phosphatase Lactate Dehydrogenase C-Reactive Protein Total Protein Albumin Arterial Blood Glucose Coronavirus (PCR) 08/10/21 08/10/21 08/11/21 15:21 21:07 07:22 WBC MCV MCH MCHC RDW Lymph % (Auto) [place] % (Auto) Eos % (Auto) Lymph # (Auto) [place] # (Auto) Eos # (Auto) Baso # (Auto) Seg Neutrophils % Seg Neuts % (Manual) Lymphocytes % (Manual) Seg Neutrophils # Seg Neutrophils # Man Lymphocytes # (Manual) D-Dimer ABG pH POC ABG pCO2 POC ABG pO2 ABG pO2 ABG HCO3 ABG O2 Saturation ABG Base Excess ABG Oxyhemoglobin ABG Sodium ABG Chloride ABG Glucose Oxyhemoglobin Carboxyhemoglobin Sodium Potassium Chloride Carbon Dioxide BUN Creatinine Glucose POC Glucose 188 H 177 H 123 H Hemoglobin A1c Magnesium Ferritin AST ALT Alkaline Phosphatase Lactate Dehydrogenase C-Reactive Protein Total Protein Albumin Arterial Blood Glucose Coronavirus (PCR) 08/11/21 08/11/21 08/11/21 11:42 15:43 21:34 WBC MCV MCH MCHC RDW Lymph % (Auto) [place] % (Auto) Eos % (Auto) Lymph # (Auto) [place] # (Auto) Eos # (Auto) Baso # (Auto) Seg Neutrophils % Seg Neuts % (Manual) Lymphocytes % (Manual) Seg Neutrophils # Seg Neutrophils # Man Lymphocytes # (Manual) D-Dimer ABG pH POC ABG pCO2 POC ABG pO2 ABG pO2 ABG HCO3 ABG O2 Saturation ABG Base Excess ABG Oxyhemoglobin ABG Sodium ABG Chloride ABG Glucose Oxyhemoglobin Carboxyhemoglobin Sodium Potassium Chloride Carbon Dioxide BUN Creatinine Glucose POC Glucose 182 H 182 H 112 H Hemoglobin A1c Magnesium Ferritin AST ALT Alkaline Phosphatase Lactate Dehydrogenase C-Reactive Protein Total Protein Albumin Arterial Blood Glucose Coronavirus (PCR) 08/12/21 08/12/21 08/12/21 07:49 12:03 17:06 WBC MCV MCH MCHC RDW Lymph % (Auto) [place] % (Auto) Eos % (Auto) Lymph # (Auto) [place] # (Auto) Eos # (Auto) Baso # (Auto) Seg Neutrophils % Seg Neuts % (Manual) Lymphocytes % (Manual) Seg Neutrophils # Seg Neutrophils # Man Lymphocytes # (Manual) D-Dimer ABG pH POC ABG pCO2 POC ABG pO2 ABG pO2 ABG HCO3 ABG O2 Saturation ABG Base Excess ABG Oxyhemoglobin ABG Sodium ABG Chloride ABG Glucose Oxyhemoglobin Carboxyhemoglobin Sodium Potassium Chloride Carbon Dioxide BUN Creatinine Glucose POC Glucose 151 H 154 H 106 H Hemoglobin A1c Magnesium Ferritin AST ALT Alkaline Phosphatase Lactate Dehydrogenase C-Reactive Protein Total Protein Albumin Arterial Blood Glucose Coronavirus (PCR) 08/12/21 08/13/21 08/13/21 21:50 07:31 11:27 WBC MCV MCH MCHC RDW Lymph % (Auto) [place] % (Auto) Eos % (Auto) Lymph # (Auto) [place] # (Auto) Eos # (Auto) Baso # (Auto) Seg Neutrophils % Seg Neuts % (Manual) Lymphocytes % (Manual) Seg Neutrophils # Seg Neutrophils # Man Lymphocytes # (Manual) D-Dimer ABG pH POC ABG pCO2 POC ABG pO2 ABG pO2 ABG HCO3 ABG O2 Saturation ABG Base Excess ABG Oxyhemoglobin ABG Sodium ABG Chloride ABG Glucose Oxyhemoglobin Carboxyhemoglobin Sodium Potassium Chloride Carbon Dioxide BUN Creatinine Glucose POC Glucose 160 H 118 H 177 H Hemoglobin A1c Magnesium Ferritin AST ALT Alkaline Phosphatase Lactate Dehydrogenase C-Reactive Protein Total Protein Albumin Arterial Blood Glucose Coronavirus (PCR) 08/13/21 08/13/21 08/14/21 16:21 20:59 07:16 WBC MCV MCH MCHC RDW Lymph % (Auto) [place] % (Auto) Eos % (Auto) Lymph # (Auto) [place] # (Auto) Eos # (Auto) Baso # (Auto) Seg Neutrophils % Seg Neuts % (Manual) Lymphocytes % (Manual) Seg Neutrophils # Seg Neutrophils # Man Lymphocytes # (Manual) D-Dimer ABG pH POC ABG pCO2 POC ABG pO2 ABG pO2 ABG HCO3 ABG O2 Saturation ABG Base Excess ABG Oxyhemoglobin ABG Sodium ABG Chloride ABG Glucose Oxyhemoglobin Carboxyhemoglobin Sodium Potassium Chloride Carbon Dioxide BUN Creatinine Glucose POC Glucose 116 H 140 H 109 H Hemoglobin A1c Magnesium Ferritin AST ALT Alkaline Phosphatase Lactate Dehydrogenase C-Reactive Protein Total Protein Albumin Arterial Blood Glucose Coronavirus (PCR) 08/14/21 08/14/21 08/14/21 11:13 16:30 21:11 WBC MCV MCH MCHC RDW Lymph % (Auto) [place] % (Auto) Eos % (Auto) Lymph # (Auto) [place] # (Auto) Eos # (Auto) Baso # (Auto) Seg Neutrophils % Seg Neuts % (Manual) Lymphocytes % (Manual) Seg Neutrophils # Seg Neutrophils # Man Lymphocytes # (Manual) D-Dimer ABG pH POC ABG pCO2 POC ABG pO2 ABG pO2 ABG HCO3 ABG O2 Saturation ABG Base Excess ABG Oxyhemoglobin ABG Sodium ABG Chloride ABG Glucose Oxyhemoglobin Carboxyhemoglobin Sodium Potassium Chloride Carbon Dioxide BUN Creatinine Glucose POC Glucose 176 H 117 H 222 H Hemoglobin A1c Magnesium Ferritin AST ALT Alkaline Phosphatase Lactate Dehydrogenase C-Reactive Protein Total Protein Albumin Arterial Blood Glucose Coronavirus (PCR) 08/15/21 08/15/21 08/15/21 07:10 11:11 16:25 WBC MCV MCH MCHC RDW Lymph % (Auto) [place] % (Auto) Eos % (Auto) Lymph # (Auto) [place] # (Auto) Eos # (Auto) Baso # (Auto) Seg Neutrophils % Seg Neuts % (Manual) Lymphocytes % (Manual) Seg Neutrophils # Seg Neutrophils # Man Lymphocytes # (Manual) D-Dimer ABG pH POC ABG pCO2 POC ABG pO2 ABG pO2 ABG HCO3 ABG O2 Saturation ABG Base Excess ABG Oxyhemoglobin ABG Sodium ABG Chloride ABG Glucose Oxyhemoglobin Carboxyhemoglobin Sodium Potassium Chloride Carbon Dioxide BUN Creatinine Glucose POC Glucose 165 H 225 H 157 H Hemoglobin A1c Magnesium Ferritin AST ALT Alkaline Phosphatase Lactate Dehydrogenase C-Reactive Protein Total Protein Albumin Arterial Blood Glucose Coronavirus (PCR) 08/16/21 08/16/21 08/16/21 07:29 11:14 21:03 WBC MCV MCH MCHC RDW Lymph % (Auto) [place] % (Auto) Eos % (Auto) Lymph # (Auto) [place] # (Auto) Eos # (Auto) Baso # (Auto) Seg Neutrophils % Seg Neuts % (Manual) Lymphocytes % (Manual) Seg Neutrophils # Seg Neutrophils # Man Lymphocytes # (Manual) D-Dimer ABG pH POC ABG pCO2 POC ABG pO2 ABG pO2 ABG HCO3 ABG O2 Saturation ABG Base Excess ABG Oxyhemoglobin ABG Sodium ABG Chloride ABG Glucose Oxyhemoglobin Carboxyhemoglobin Sodium Potassium Chloride Carbon Dioxide BUN Creatinine Glucose POC Glucose 177 H 254 H 291 H Hemoglobin A1c Magnesium Ferritin AST ALT Alkaline Phosphatase Lactate Dehydrogenase C-Reactive Protein Total Protein Albumin Arterial Blood Glucose Coronavirus (PCR) 08/17/21 08/17/21 08/17/21 07:50 12:18 17:35 WBC MCV MCH MCHC RDW Lymph % (Auto) [place] % (Auto) Eos % (Auto) Lymph # (Auto) [place] # (Auto) Eos # (Auto) Baso # (Auto) Seg Neutrophils % Seg Neuts % (Manual) Lymphocytes % (Manual) Seg Neutrophils # Seg Neutrophils # Man Lymphocytes # (Manual) D-Dimer ABG pH POC ABG pCO2 POC ABG pO2 ABG pO2 ABG HCO3 ABG O2 Saturation ABG Base Excess ABG Oxyhemoglobin ABG Sodium ABG Chloride ABG Glucose Oxyhemoglobin Carboxyhemoglobin Sodium Potassium Chloride Carbon Dioxide BUN Creatinine Glucose POC Glucose 171 H 236 H 273 H Hemoglobin A1c Magnesium Ferritin AST ALT Alkaline Phosphatase Lactate Dehydrogenase C-Reactive Protein Total Protein Albumin Arterial Blood Glucose Coronavirus (PCR) 08/17/21 08/18/21 08/18/21 21:36 07:27 11:29 WBC MCV MCH MCHC RDW Lymph % (Auto) [place] % (Auto) Eos % (Auto) Lymph # (Auto) [place] # (Auto) Eos # (Auto) Baso # (Auto) Seg Neutrophils % Seg Neuts % (Manual) Lymphocytes % (Manual) Seg Neutrophils # Seg Neutrophils # Man Lymphocytes # (Manual) D-Dimer ABG pH POC ABG pCO2 POC ABG pO2 ABG pO2 ABG HCO3 ABG O2 Saturation ABG Base Excess ABG Oxyhemoglobin ABG Sodium ABG Chloride ABG Glucose Oxyhemoglobin Carboxyhemoglobin Sodium Potassium Chloride Carbon Dioxide BUN Creatinine Glucose POC Glucose 181 H 179 H 210 H Hemoglobin A1c Magnesium Ferritin AST ALT Alkaline Phosphatase Lactate Dehydrogenase C-Reactive Protein Total Protein Albumin Arterial Blood Glucose Coronavirus (PCR) 08/18/21 08/18/21 08/19/21 17:03 21:14 07:17 WBC MCV MCH MCHC RDW Lymph % (Auto) [place] % (Auto) Eos % (Auto) Lymph # (Auto) [place] # (Auto) Eos # (Auto) Baso # (Auto) Seg Neutrophils % Seg Neuts % (Manual) Lymphocytes % (Manual) Seg Neutrophils # Seg Neutrophils # Man Lymphocytes # (Manual) D-Dimer ABG pH POC ABG pCO2 POC ABG pO2 ABG pO2 ABG HCO3 ABG O2 Saturation ABG Base Excess ABG Oxyhemoglobin ABG Sodium ABG Chloride ABG Glucose Oxyhemoglobin Carboxyhemoglobin Sodium Potassium Chloride Carbon Dioxide BUN Creatinine Glucose POC Glucose 255 H 212 H 193 H Hemoglobin A1c Magnesium Ferritin AST ALT Alkaline Phosphatase Lactate Dehydrogenase C-Reactive Protein Total Protein Albumin Arterial Blood Glucose Coronavirus (PCR) 08/19/21 08/19/21 08/19/21 11:23 16:20 21:39 WBC MCV MCH MCHC RDW Lymph % (Auto) [place] % (Auto) Eos % (Auto) Lymph # (Auto) [place] # (Auto) Eos # (Auto) Baso # (Auto) Seg Neutrophils % Seg Neuts % (Manual) Lymphocytes % (Manual) Seg Neutrophils # Seg Neutrophils # Man Lymphocytes # (Manual) D-Dimer ABG pH POC ABG pCO2 POC ABG pO2 ABG pO2 ABG HCO3 ABG O2 Saturation ABG Base Excess ABG Oxyhemoglobin ABG Sodium ABG Chloride ABG Glucose Oxyhemoglobin Carboxyhemoglobin Sodium Potassium Chloride Carbon Dioxide BUN Creatinine Glucose POC Glucose 256 H 173 H 223 H Hemoglobin A1c Magnesium Ferritin AST ALT Alkaline Phosphatase Lactate Dehydrogenase C-Reactive Protein Total Protein Albumin Arterial Blood Glucose Coronavirus (PCR) 08/20/21 08/20/21 08/20/21 07:52 11:18 15:32 WBC MCV MCH MCHC RDW Lymph % (Auto) [place] % (Auto) Eos % (Auto) Lymph # (Auto) [place] # (Auto) Eos # (Auto) Baso # (Auto) Seg Neutrophils % Seg Neuts % (Manual) Lymphocytes % (Manual) Seg Neutrophils # Seg Neutrophils # Man Lymphocytes # (Manual) D-Dimer ABG pH POC ABG pCO2 POC ABG pO2 ABG pO2 ABG HCO3 ABG O2 Saturation ABG Base Excess ABG Oxyhemoglobin ABG Sodium ABG Chloride ABG Glucose Oxyhemoglobin Carboxyhemoglobin Sodium Potassium Chloride Carbon Dioxide BUN Creatinine Glucose POC Glucose 147 H 280 H 243 H Hemoglobin A1c Magnesium Ferritin AST ALT Alkaline Phosphatase Lactate Dehydrogenase C-Reactive Protein Total Protein Albumin Arterial Blood Glucose Coronavirus (PCR) 08/20/21 08/21/21 08/21/21 22:15 08:26 11:58 WBC MCV MCH MCHC RDW Lymph % (Auto) [place] % (Auto) Eos % (Auto) Lymph # (Auto) [place] # (Auto) Eos # (Auto) Baso # (Auto) Seg Neutrophils % Seg Neuts % (Manual) Lymphocytes % (Manual) Seg Neutrophils # Seg Neutrophils # Man Lymphocytes # (Manual) D-Dimer ABG pH POC ABG pCO2 POC ABG pO2 ABG pO2 ABG HCO3 ABG O2 Saturation ABG Base Excess ABG Oxyhemoglobin ABG Sodium ABG Chloride ABG Glucose Oxyhemoglobin Carboxyhemoglobin Sodium Potassium Chloride Carbon Dioxide BUN Creatinine Glucose POC Glucose 215 H 165 H 241 H Hemoglobin A1c Magnesium Ferritin AST ALT Alkaline Phosphatase Lactate Dehydrogenase C-Reactive Protein Total Protein Albumin Arterial Blood Glucose Coronavirus (PCR) 08/21/21 08/21/21 08/22/21 16:56 22:11 07:20 WBC MCV MCH MCHC RDW Lymph % (Auto) [place] % (Auto) Eos % (Auto) Lymph # (Auto) [place] # (Auto) Eos # (Auto) Baso # (Auto) Seg Neutrophils % Seg Neuts % (Manual) Lymphocytes % (Manual) Seg Neutrophils # Seg Neutrophils # Man Lymphocytes # (Manual) D-Dimer ABG pH POC ABG pCO2 POC ABG pO2 ABG pO2 ABG HCO3 ABG O2 Saturation ABG Base Excess ABG Oxyhemoglobin ABG Sodium ABG Chloride ABG Glucose Oxyhemoglobin Carboxyhemoglobin Sodium Potassium Chloride Carbon Dioxide BUN Creatinine Glucose POC Glucose 276 H 207 H 184 H Hemoglobin A1c Magnesium Ferritin AST ALT Alkaline Phosphatase Lactate Dehydrogenase C-Reactive Protein Total Protein Albumin Arterial Blood Glucose Coronavirus (PCR) 08/22/21 08/22/21 08/22/21 11:32 16:11 20:36 WBC MCV MCH MCHC RDW Lymph % (Auto) [place] % (Auto) Eos % (Auto) Lymph # (Auto) [place] # (Auto) Eos # (Auto) Baso # (Auto) Seg Neutrophils % Seg Neuts % (Manual) Lymphocytes % (Manual) Seg Neutrophils # Seg Neutrophils # Man Lymphocytes # (Manual) D-Dimer ABG pH POC ABG pCO2 POC ABG pO2 ABG pO2 ABG HCO3 ABG O2 Saturation ABG Base Excess ABG Oxyhemoglobin ABG Sodium ABG Chloride ABG Glucose Oxyhemoglobin Carboxyhemoglobin Sodium Potassium Chloride Carbon Dioxide BUN Creatinine Glucose POC Glucose 235 H 240 H 207 H Hemoglobin A1c Magnesium Ferritin AST ALT Alkaline Phosphatase Lactate Dehydrogenase C-Reactive Protein Total Protein Albumin Arterial Blood Glucose Coronavirus (PCR) 08/23/21 08/23/21 08/23/21 08:40 12:20 21:53 WBC MCV MCH MCHC RDW Lymph % (Auto) [place] % (Auto) Eos % (Auto) Lymph # (Auto) [place] # (Auto) Eos # (Auto) Baso # (Auto) Seg Neutrophils % Seg Neuts % (Manual) Lymphocytes % (Manual) Seg Neutrophils # Seg Neutrophils # Man Lymphocytes # (Manual) D-Dimer ABG pH POC ABG pCO2 POC ABG pO2 ABG pO2 ABG HCO3 ABG O2 Saturation ABG Base Excess ABG Oxyhemoglobin ABG Sodium ABG Chloride ABG Glucose Oxyhemoglobin Carboxyhemoglobin Sodium Potassium Chloride Carbon Dioxide BUN Creatinine Glucose POC Glucose 208 H 259 H 258 H Hemoglobin A1c Magnesium Ferritin AST ALT Alkaline Phosphatase Lactate Dehydrogenase C-Reactive Protein Total Protein Albumin Arterial Blood Glucose Coronavirus (PCR) 08/24/21 08/24/21 07:48 11:25 WBC MCV MCH MCHC RDW Lymph % (Auto) [place] % (Auto) Eos % (Auto) Lymph # (Auto) [place] # (Auto) Eos # (Auto) Baso # (Auto) Seg Neutrophils % Seg Neuts % (Manual) Lymphocytes % (Manual) Seg Neutrophils # Seg Neutrophils # Man Lymphocytes # (Manual) D-Dimer ABG pH POC ABG pCO2 POC ABG pO2 ABG pO2 ABG HCO3 ABG O2 Saturation ABG Base Excess ABG Oxyhemoglobin ABG Sodium ABG Chloride ABG Glucose Oxyhemoglobin Carboxyhemoglobin Sodium Potassium Chloride Carbon Dioxide BUN Creatinine Glucose POC Glucose 189 H 255 H Hemoglobin A1c Magnesium Ferritin AST ALT Alkaline Phosphatase Lactate Dehydrogenase C-Reactive Protein Total Protein Albumin Arterial Blood Glucose Coronavirus (PCR)
[2021-08-24] MEDS: ENOXAPARIN 40 MG/0.4 ML INJ SUB-Q SCH (22:40)
[2021-08-25] MEDS: ACETAMINOPHEN 325 MG TAB PO PRN ×3 (00:22→22:53)
[2021-08-25] MEDS: methylPREDNISolone Sod Succinate 125 MG/2 ML INJ IV SCH ×3 (06:31→22:54)
[2021-08-25] MEDS: INSULIN LISPRO 100 UNIT/ML SUB-Q SCH ×4 (08:30→22:53)
--- NOTE | 2021-08-25 09:43 | Progress Note ---
Assessment and Plan Assessment and plan: -Acute hypoxic/hypercapneic respiratory failure --Severe ARDS. Suspected possible post Covid pneumonia lung fibrosis. Continues to require high flow nasal cannula oxygen 30 L/50% FiO2/O2 sats 97% refusing BiPAP, on 100% nonrebreather , Wean as tolerated. Maintain SpO2 >88% Steroids resumed on IV Solu-Medrol on 08/16/2021. Will maintain high-dose IV Solu-Medrol at 125 mg every 8 hours X-ray chest 08/22/2021: Extensive bilateral parenchymal disease unchanged Discussed with pulmonology Dr. Merida --Metabolic alkalosis Continue monitoring --Heart failure with preserved ejection fraction -TTE: LVEF 55-60% with diastolic dysfunction -will continue to monitor for signs of fluid overload. -On intermittent diuretics. --COVID-19 infection -Has completed treatment. --Type 2 diabetes -Uncontrolled most likely due to steroid -Continue Lantus to 20 SQ daily. Continue sliding scale insulin. --Anxiety -Stable -continue xanax --DVT prophylaxis -Lovenox 40 daily --Deconditioning PT OT when stable Possible SNF placement at discharge Resolved issues #Sepsis secondary to COVID-19 #Iatrogenic diarrhea #Hypomagnesemia #Hyponatremia #Protein calorie malnutrition #Dysuria #Hypokalemia #Possible UTI --Advanced care planning -Disease education conducted, care plan discussed, diagnoses discussed, prognosis discussed, and patient acknowledges understanding with care plan -Time: +30 minutes --Disposition Plan: Continue medical management Total Time Spent with Patient (Minutes): 35 minutes Brief history and daily hospital course; Admitted on 04/16/2021 50 YO Female with GERD, Obesity, HLD presents to ED for evaluation. Patient r eports "I cannot breathe". Patient states that she has experienced subjective fever, shortness of breath, malaise, body aches, dry cough, and shortness of breath over the past 1 week with progressively worsening symptoms over the same timeframe. EMS was notified and upon arrival the patient was found to be in distress and subsequent transported to [facility] for further care and evaluation of the aforementioned symptoms. The patient was seen and evaluated in the emergency department. All lab and imaging studies reviewed. Patient found to have a pulse oximetry of 86% with exertion on room air which is consistent with acute hypoxemic respiratory failure. Patient with chest x-ray which revealed bilateral pneumonia. Patient admitted to medical floor and initiated him on pneumonia protocol as well as coronavirus protocol. Patient knowledges fever but denies chills, chest pain, palpitation, skin rash, recent ill contacts, or known exposure to COVID-19. Prior admission on 01/21/2017 reviewed. All medication listed at time of admission has been reconciled. Patient is unvaccinated for coronavirus infection. CXR: Bilateral Pneumonia 04/17: Patient seen and examined, still uncomfortable with Hypoxic respiratory failure and on oxygen, will continue to steroids therapy, start patient on Re mdesivir, ID consulted, Pulmonary consult placed. 04/18: Patient seen and examined, she is currently being changed to High flow NC due to worsening HYPOXIA, will transfer to IMCU, Pulmonary and ID following. Will also give a dose of Lasix today. Monitor Inflammatory markers. 04/19: Patient seen and examined still on high flow due to hypoxia. Appears a bit more comfortable today than yesterday. Cough has decreased in frequency. We will continue high dose Dexameathasone to complete 10 days. continue on Remdesivir 200 mg IV q day x 1 followed by 100 mg IV q day x 4 days -Obtain q48-72h inflammatory markers - ferritin, Ddimer, CRP, LDH Will also give lasix daily for the next 3 days and monitor renal function. Family updated. Continue prone positioning as tolerated 04/20: Patient has some desaturation episodes yesterday was placed on BiPAP. Discussed with ICU team for bed availability for patient to be transferred up. Continue prone position as tolerated. 04/21: Patient remains with profound hypoxia secondary to COVID pneumonia. -Continue steroids -Continue remedesir -S/P Actmera 04/22: Patient remains on steroids and remdesivir. ABG shows persistent hypoxia. We will continue current management additional trial of Lasix for the next few days to see if any improvement. Monitor inflammatory markers as needed. Prognosis is guarded remains on high flow 04/23; patient was treated with remdesivir and Actemra. Continue steroid. Patient's prognosis is guarded. 04/24; patient is on steroid. Patient is currently on BiPAP. Prognosis is guarded. Pulmonary is following. Patient was given Lasix and Ativan. 04/25; continue steroid. Patient was on 40 L of high flow oxygen with saturation was 88%. Pulmonary is following. Prognosis is guarded. Patient was given lasix and ativan. 04/26; patient is on BiPAP and Precedex. Prognosis is guarded. 04/27; patient is on BiPAP and Precedex. Patient will finish steroid today and will start on Solu-Medrol tomorrow. Prognosis is guarded. Blood pressure is better today. Hold Lasix. 04/28 patient is on 100 Fio2 via BIPAP. moderately dyspneic, pulmonary note reviewed, lab results reviewed 04/29 no acute events- see systems review above 04/30 no acute events overnight - on airvo today- TPN started -see systems review above 05-01 no acute events overnight- tolerating airvo- see systems review above 05-02 no acute events overnight; tolerating airvo this AM- see systems review above 05/03: Patient remains on full high flow oxygen. No acute events overnight 05/04: Patient remains on BiPAP this morning at 70%. Returning to service Patient initially managed in the ICU and then transfered to the floor 06/25: Patient remains on full oxygen with high flow, encouraged to prone at night time. Spoke to Night nursing staff to ensure assisting the patient Prone. Continue steroid therapy, will discuss with Pulmonary about trying additional lasix. Plan discussed with patient and family. 06/26: Patient already on Lasix daily, Hypokalemia- Replace K. Continue to encourage Proning. Remains on high flow. 06/27: Continue supportive care unfortunately had to go up on her oxygen to 70% FiO2 prognosis remains guarded continue to encourage proning. 06/28: Continue supportive care, Encourage Proning 06/29: Mild hypokalemia noted yesterday will be replaced as it was not corrected yesterday we will recheck BMP in a.m. Continue IV Lasix. Monitor renal function. 06/30: Give additional potassium for better control. Continue supportive care. Continue IV Lasix. Continue to encourage proning again discussed with the patient via interpreter for the deaf. He verbalized understanding 07/01: Brief summary patient seen and examined this morning continues to show improvement FiO2 demand down to 45% on 30 L on high flow. Patient is a 50-year-old male who was admitted with COVID-19 today is day 76 of her hospital stay she was initially managed in the ICU and now has been transferred to the floor. She remains on low-dose steroid therapy following completion of remdesivir and recommended steroid. She is encouraged to continue to prone and the nights that she has done this has shown some improvement. She is still probably a long way from being discharged. Intermittent monitoring off electrolytes as she has had some episode of hyponatremia and hypomagnesemia is recommended. She is concerned about puffiness in her face which is likely steroid-induced I have discussed this with her that it will improve following discontinuation of steroid. In the meantime I have held her Lasix as we have been diuresing her for majority of her stay and this should be reevaluated the next few days to see if she will benefit from further diuresis. Pulmonary is on board 08/20: Return to service today. Remains on high flow oxygen, not tolerating weaning, continue current management Currently undergoing management and awaiting for possible home hospice 08/21: Patient still on high flow and NRB, still severely Hypoxic. Continue supportive care. Prognosis guarded. 08/22: Patient seen and examined, she still remains on 50% high flow and also nonrebreather. Per staff she is refusing therapy have provided counseling to her that this will help her improve. She is also awaiting for hospice discharge which case management is working on. Chest x-ray reviewed shows persistent interstitial infiltrates bilaterally. 08/23; remains on high flow nasal cannula oxygen 30 L/50% FiO2/O2 sats 97%, patient refusing BiPAP, will continue high-dose IV Solu-Medrol at 125 mg every 8 hours. Discussed with pulmonary critical Dr. Merida 08/24; patient remains on high flow nasal cannula oxygen 26 L, wean as tolerate d, continue rest of the management including high-dose Solu-Medrol 125 mg every 8 hours 08/25; patient remains on high flow oxygen at 26 L/50% FiO2 saturating 97% History Interval history: I have seen and examined the patient in [facility] this morning Patient's chart and medications reviewed Patient remains on high flow nasal cannula oxygen at 26 L No new complaints Hospitalist Physical - Constitutional Vitals: Temp Pulse Resp BP Pulse Ox 97.6 F 98 H 29 H 127/62 97 08/25/21 00:00 08/25/21 09:00 08/25/21 09:00 08/25/21 09:00 08/25/21 09:04 General appearance: Present: mild distress, well-nourished, other (Looks tired) - EENT Eyes: Present: PERRL, EOM intact - Neck Neck: Present: supple, normal ROM - Respiratory Respiratory effort: normal Respiratory: bilateral: diminished, rhonchi, negative: rales, wheezing - Cardiovascular Rhythm: regular Heart Sounds: Present: S1 & S2 - Extremities Extremities: no ischemia, No edema - Abdominal General gastrointestinal: soft, non-tender, non-distended, normal bowel sounds - Integumentary Integumentary: Present: clear, warm - Psychiatric Psychiatric: appropriate mood/affect, cooperative - Neurologic Neurologic: CNII-XII intact, moves all extremities Results - Labs CBC & Chem 7: 07/23/21 04:35 08/08/21 04:51 Labs: Laboratory Last Values WBC 10.8 K/mm3 (4.5-11.0) 07/23/21 04:35 RBC 3.84 M/mm3 (3.65-5.03) 07/23/21 04:35 Hgb 12.1 gm/dl (10.1-14.3) 07/23/21 04:35 Hct 37.6 % (30.3-42.9) 07/23/21 04:35 MCV 98 fl (79-97) H 07/23/21 04:35 MCH 32 pg (28-32) 07/23/21 04:35 MCHC 32 % (30-34) 07/23/21 04:35 RDW 16.2 % (13.2-15.2) H 07/23/21 04:35 Plt Count 367 K/mm3 (140-440) 07/23/21 04:35 Lymph % (Auto) 7.9 % (13.4-35.0) L 07/23/21 04:35 Brown % (Auto) 5.6 % (0.0-7.3) 07/23/21 04:35 Eos % (Auto) 0.8 % (0.0-4.3) 07/23/21 04:35 Baso % (Auto) 0.4 % (0.0-1.8) 07/23/21 04:35 Lymph # (Auto) 0.9 K/mm3 (1.2-5.4) L 07/23/21 04:35 Brown # (Auto) 0.6 K/mm3 (0.0-0.8) 07/23/21 04:35 Eos # (Auto) 0.1 K/mm3 (0.0-0.4) 07/23/21 04:35 Baso # (Auto) 0.0 K/mm3 (0.0-0.1) 07/23/21 04:35 Add Manual Diff Complete 07/09/21 04:45 Total Counted 100 07/09/21 04:45 Seg Neutrophils % 85.3 % (40.0-70.0) H 07/23/21 04:35 Seg Neuts % (Manual) 82.0 % (40.0-70.0) H 07/09/21 04:45 Band Neutrophils % 1.0 % 05/12/21 04:05 Lymphocytes % (Manual) 13.0 % (13.4-35.0) L 07/09/21 04:45 Monocytes % (Manual) 3.0 % (0.0-7.3) 07/09/21 04:45 Eosinophils % (Manual) 2.0 % (0.0-4.3) 07/09/21 04:45 Nucleated RBC % Not Reportable 07/09/21 04:45 Seg Neutrophils # 9.2 K/mm3 (1.8-7.7) H 07/23/21 04:35 Seg Neutrophils # Man 7.8 K/mm3 (1.8-7.7) H 07/09/21 04:45 Band Neutrophils # 0.0 K/mm3 07/09/21 04:45 Lymphocytes # (Manual) 1.2 K/mm3 (1.2-5.4) 07/09/21 04:45 Abs React Lymphs (Man) 0.0 K/mm3 07/09/21 04:45 Monocytes # (Manual) 0.3 K/mm3 (0.0-0.8) 07/09/21 04:45 Eosinophils # (Manual) 0.2 K/mm3 (0.0-0.4) 07/09/21 04:45 Basophils # (Manual) 0.0 K/mm3 (0.0-0.1) 07/09/21 04:45 Metamyelocytes # 0.0 K/mm3 07/09/21 04:45 Myelocytes # 0.0 K/mm3 07/09/21 04:45 Promyelocytes # 0.0 K/mm3 07/09/21 04:45 Blast Cells # 0.0 K/mm3 07/09/21 04:45 WBC Morphology Not Reportable 07/09/21 04:45 Hypersegmented Neuts Not Reportable 07/09/21 04:45 Hyposegmented Neuts Not Reportable 07/09/21 04:45 Hypogranular Neuts Not Reportable 07/09/21 04:45 Smudge Cells Not Reportable 07/09/21 04:45 Toxic Granulation Not Reportable 07/09/21 04:45 Toxic Vacuolation Not Reportable 07/09/21 04:45 Dohle Bodies Not Reportable 07/09/21 04:45 Pelger-Huet Anomaly Not Reportable 07/09/21 04:45 Janelle Rods Not Reportable 07/09/21 04:45 Platelet Estimate Consistent w auto 07/09/21 04:45 Clumped Platelets Not Reportable 07/09/21 04:45 Plt Clumps, EDTA Not Reportable 07/09/21 04:45 Large Platelets Not Reportable 07/09/21 04:45 Giant Platelets Rare 07/09/21 04:45 Platelet Satelliting Not Reportable 07/09/21 04:45 Plt Morphology Comment Not Reportable 07/09/21 04:45 RBC Morphology Not Reportable 07/09/21 04:45 Dimorphic RBCs Not Reportable 07/09/21 04:45 Polychromasia Not Reportable 07/09/21 04:45 Hypochromasia Few 07/09/21 04:45 Poikilocytosis Not Reportable 07/09/21 04:45 Anisocytosis Not Reportable 07/09/21 04:45 Microcytosis Not Reportable 07/09/21 04:45 Macrocytosis Not Reportable 07/09/21 04:45 Spherocytes Not Reportable 07/09/21 04:45 Pappenheimer Bodies Not Reportable 07/09/21 04:45 Sickle Cells Not Reportable 07/09/21 04:45 Target Cells Not Reportable 07/09/21 04:45 Tear Drop Cells Not Reportable 07/09/21 04:45 Ovalocytes Not Reportable 07/09/21 04:45 Stomatocytes 1+ 07/09/21 04:45 Helmet Cells Not Reportable 07/09/21 04:45 Ahuja-Dawson Bodies Not Reportable 07/09/21 04:45 Geff Rings Not Reportable 07/09/21 04:45 Crow Cells Not Reportable 07/09/21 04:45 Bite Cells Not Reportable 07/09/21 04:45 Crenated Cell Not Reportable 07/09/21 04:45 Elliptocytes Not Reportable 07/09/21 04:45 Acanthocytes (Spur) Not Reportable 07/09/21 04:45 Rouleaux Not Reportable 07/09/21 04:45 Hemoglobin C Crystals Not Reportable 07/09/21 04:45 Schistocytes Not Reportable 07/09/21 04:45 Malaria parasites Not Reportable 07/09/21 04:45 Justin Bodies Not Reportable 07/09/21 04:45 Hem Pathologist Commnt No 07/09/21 04:45 D-Dimer 638.35 ng/mlDDU (0-234) H 07/09/21 04:45 ABG pH 7.417 (7.320-7.450) 07/23/21 18:11 POC ABG pCO2 78.3 mmHg (32.0-48.0) H 07/23/21 18:11 ABG pCO2 85.7 mm Hg 07/22/21 12:05 POC ABG pO2 80.7 mmHg (83-108) L 07/23/21 18:11 ABG pO2 66.1 mm Hg (80.0-90.0) L 07/22/21 12:05 POC ABG HCO3 49.3 07/23/21 18:11 ABG HCO3 45.0 mmol/L (20.0-26.0) H 07/22/21 12:05 ABG O2 Saturation 96.7 (0-100) 07/23/21 18:11 ABG O2 Content 16.8 (0.0-44) 07/22/21 12:05 POC ABG Base Excess 20.5 07/23/21 18:11 ABG Base Excess 15.2 mmol/L (-2.0-3.0) H 07/22/21 12:05 ABG Hemoglobin 12.6 (12.0-17.5) 07/23/21 18:11 ABG Oxyhemoglobin 95.7 (94-98) 07/23/21 18:11 ABG Carboxyhemoglobin 1.9 % (0.0-5.0) 07/22/21 12:05 ABG Methemoglobin 0.3 (0.0-1.5) 07/23/21 18:11 ABG Sodium 134.9 mmol/L (136.0-145.0) L 07/23/21 18:11 ABG Potassium 3.9 mmol/L (3.40-4.50) 07/23/21 18:11 ABG Chloride 89.0 mmol/L (98-107) L 07/23/21 18:11 ABG Glucose 200 mg/dL (65-95) H 07/23/21 18:11 Oxyhemoglobin 91.9 % (95.0-99.0) L 07/22/21 12:05 Carboxyhemoglobin 0.7 (0.5-1.5) 07/23/21 18:11 FiO2 100 % 07/22/21 12:05 FiO2 % 100.0 07/23/21 18:11 Sodium 140 mmol/L (137-145) 08/08/21 04:51 Potassium 4.1 mmol/L (3.6-5.0) 08/08/21 04:51 Chloride 92.9 mmol/L (98-107) L 08/08/21 04:51 Carbon Dioxide 39 mmol/L (22-30) H 08/08/21 04:51 Anion Gap 12 mmol/L 08/08/21 04:51 BUN 9 mg/dL (7-17) 08/08/21 04:51 Creatinine < 0.2 mg/dL (0.6-1.2) L 08/08/21 04:51 Estimated GFR > 60 ml/min 08/08/21 04:51 BUN/Creatinine Ratio 45 % 08/08/21 04:51 Glucose 105 mg/dL (65-100) H 08/08/21 04:51 POC Glucose 167 mg/dL (70-105) H 08/25/21 07:23 Hemoglobin A1c 8.5 % (4-6) H 04/18/21 07:36 Calcium 9.4 mg/dL (8.4-10.2) 08/08/21 04:51 Phosphorus 3.70 mg/dL (2.5-4.5) 07/23/21 04:35 Magnesium 2.10 mg/dL (1.7-2.3) 07/23/21 04:35 Ferritin 155.9 ng/mL (10.0-200.0) 07/09/21 04:45 Total Bilirubin < 0.20 mg/dL (0.1-1.2) 07/26/21 09:56 AST 23 units/L (5-40) 07/26/21 09:56 ALT 25 units/L (7-56) 07/26/21 09:56 Alkaline Phosphatase 69 units/L (35-129) 07/26/21 09:56 Lactate Dehydrogenase 475 units/L (91-180) H 06/05/21 05:26 C-Reactive Protein 4.30 mg/dL (0.00-1.30) H 07/09/21 04:45 NT-Pro-B Natriuret Pep 59.45 pg/mL (0-450) 07/07/21 13:40 Total Protein 8.1 g/dL (6.3-8.2) 07/26/21 09:56 Albumin 3.2 g/dL (3.9-5) L 07/26/21 09:56 Albumin/Globulin Ratio 0.7 % 07/26/21 09:56 Triglycerides < 9 mg/dL (2-149) 05/03/21 04:30 Procalcitonin < 0.05 ng/mL (<0.15) 05/23/21 09:50 Arterial Blood Glucose 200 mg/dL (65-95) H 07/23/21 18:11 Arterial Blood Ionized Calcium 4.6 mg/dL (4.6-5.3) 07/23/21 18:11 Coronavirus (PCR) Negative (Negative) 07/25/21 Unknown Amos/IV: Voiding Method External Female Catheter Active Medications - Current Medications Current Medications: Generic Name Dose Route Start Last Admin Trade Name Freq PRN Reason Stop Dose Admin Acetaminophen 650 mg 07/02/21 17:48 08/25/21 00:22 Acetaminophen 325 Mg Tab PO 650 mg Q4H PRN Administration Pain, Mild (1-3) Albuterol 2.5 mg 04/16/21 13:39 04/21/21 20:39 Albuterol 2.5 Mg/3 Ml Nebu IH 2.5 mg Q4HRT PRN Administration Shortness Of Breath Alprazolam 1 mg 08/12/21 11:00 08/24/21 22:35 Alprazolam 1 Mg Tab PO 1 mg BID TUTU Administration Calcium Carbonate/Glycine 500 mg 07/24/21 10:43 08/14/21 22:24 Calcium Carbonate 500 Mg Tab Chew PO 500 mg BID PRN Administration reflux Cholecalciferol 1,000 unit 04/17/21 10:00 08/24/21 10:03 Cholecalciferol (Vit D3) 1000 Unit (25 Mcg) Tab PO 1,000 unit QDAY TUTU Administration Enoxaparin Sodium 40 mg 05/19/21 22:00 08/24/21 22:40 Enoxaparin 40 Mg/0.4 Ml Inj SUB-Q 40 mg QDAY@2200 [facility] Administration Protocol Insulin Glargine 10 units 08/17/21 13:33 08/24/21 10:02 Insulin Glargine 100 Units/Ml SUB-Q 10 units DAILY TUTU Administration Insulin Human Lispro 0 unit 05/18/21 12:00 08/25/21 08:30 Insulin Lispro 100 Unit/Ml SUB-Q 3 unit ACHS TUTU Administration Protocol Methylprednisolone Sodium Succinate 125 mg 08/23/21 14:00 08/25/21 06:31 Methylprednisolone Sod Succinate 125 Mg/2 Ml Inj IV 125 mg Q8HR TUTU Administration Ondansetron HCl 4 mg 04/16/21 14:00 05/30/21 10:07 Ondansetron 4 Mg/2 Ml Inj IV 4 mg Q8H PRN Administration Nausea And Vomiting Polyethylene Glycol 17 gm 07/16/21 20:00 08/11/21 11:18 Polyethylene Glycol 3350 17 Gm Powder PO 17 gm QDAY PRN Administration Constipation Sodium Chloride 10 ml 04/16/21 13:39 08/23/21 23:00 Sodium Chloride 0.9% 10 Ml Flush Syringe IV 10 ml PRN PRN Administration LINE FLUSH Nutrition/Malnutrition Assess - Dietary Evaluation Nutrition/Malnutrition Findings: Nutrition Notes Start: 04/23/21 07:41 Freq: Status: Active Protocol: Document 08/09/21 17:26 SAQIB (Rec: 08/09/21 17:30 SAQIB [email or web address]) Nutrition Notes Initial or Follow up Brief Note Subjective/Other Information RD brief note to set next F/U on 09/12 Nutrition Intervention Follow-Up By: 09/12/21 Additional Comments Continue monitoring food tolerance, %PO intake of meals , Hydration, and BM.
[2021-08-25] MEDS: INSULIN GLARGINE 100 UNITS/ML SUB-Q SCH (11:13)
[2021-08-25] MEDS: CHOLECALCIFEROL (VIT D3) 1000 UNIT (25 mcg) TAB PO SCH (11:13)
[2021-08-25] MEDS: ALPRAZolam 1 MG TAB PO SCH ×2 (11:13→22:54)
[2021-08-25] MEDS: ENOXAPARIN 40 MG/0.4 ML INJ SUB-Q SCH (22:53)
[2021-08-26] MEDS: methylPREDNISolone Sod Succinate 125 MG/2 ML INJ IV SCH ×3 (05:09→21:28)
[2021-08-26] MEDS: INSULIN LISPRO 100 UNIT/ML SUB-Q SCH ×4 (08:00→21:46)
[2021-08-26] MEDS: ALPRAZolam 1 MG TAB PO SCH ×2 (10:31→21:29)
[2021-08-26] MEDS: CHOLECALCIFEROL (VIT D3) 1000 UNIT (25 mcg) TAB PO SCH (10:31)
[2021-08-26] MEDS: INSULIN GLARGINE 100 UNITS/ML SUB-Q SCH (10:31)
--- NOTE | 2021-08-26 11:18 | Progress Note ---
Assessment and Plan 50 y/o female with acute respiratory failure secondary to COVID19 pneumonia. 08/26/21: Continue to wean FiO2 and flow as tolerated. Order CXR and start dropping steroids down tomorrow. 08/23/21: Patient continues to have slow improvement with steroids so please continue solumedrol 125q8 through the weekend at least and will reassess on Thursday. CM is working to obtain hospice placement with hfnc therapy. Repeat CXR on Thursday. 08/21/21: Will repeat CXR today. Consider decreasing steroid tomorrow. 08/18/21: Will continue steroids at current dosing as I believe they are helping. IMS managing blood sugars. I notified RT but I dropped FiO2 down to 55% while patient was sleeping. Will continue to follow. CM still working with hospice to get home but has to meet certain criteria on HFNC and she is not there yet. 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 Will continue solumedrol 125q8 and wean slowly over time. Discussed with pharmacy. CM working on possible placement with hospice company once she reaches a certain goal of HFNC. Will continue to monitor. 08/14/21: wean HFNC as tolerated. 08/12/21: Continue to attempt to wean HFNC. No other therapies available for this at present. Will check CXR today. 08/07/21: Constant struggle with Ms. Ren, on and off bipap. Good and bad days. She has had all therapy. Anxiety does play a huge roll but she truly desats. Continue NIV at night and PRN during the day. Wean HFNC as tolerated for sats >88%. May consider another trial of steroids when I come back. My partner is rounding the next 4 days. 08/05/21: I dropped FiO2 to 65%. Continue to wean for sats >88%. 08/03/21: COntinue supportive measures. Thank you for documenting refusal of NIV at night. Will attempt to speak with patient about anxiety and why she doesn't want to wear the NIV via the language line. 08/02/21: Continue supportive care. pLaced new order for NIV at night. Please document if patient refuses 07/31/21: COntinue to wean FiO2 as tolerated. NIV at night. 07/30/21: Bipap QHS. Please document if patient is refusing this at night. Per nurse she has refused but RT documentation reflects that it was PRN and not needed. Prognosis is still guarded. 07/29/21: Continue to attempt to wean FiO2. Given fluctuations in oxygen requirements, ok with keeping in IMCU. consider using bipap therapy at night if patient will allow. Prognosis still remains guarded. Patient has been here 104 days. 07/21/21: Wean FiO2 as tolerated. Patient has never proned the entire 96 days she has been here. Will continue bipap at night. Hold on lasix again today. Prognosis remains guarded. Has finished steroids and all other experimental COVID drugs with minimal to no improvement. 07/20/21: Give patient a break off of bipap and attempt high flow nasal cannula today. Will feed. Suggest keeping bipap therapy at night. Monitor fluid balance and BP. May need more lasix. 07/19/21: This was not related to stopping steroids as hemodynamically she is stable. Her sats is very good on 90%, I dropped to 85 and will continue to wean. She speaks no czech and is very anxious. This adds to her work of breathing. COntinue to wean FiO2 as tolerated. Will give periodic breaks on bi pap therapy. Guarded prognosis. 07/17/21: will stop steroids today. Hold on lasix given marginal blood pressure. Guarded prognosis. 07/15/21: Lasix today. Positive fluid balance all weekend based on I/O. Prone. Wean for sats >88% 07/12/21: Gave lasix 40mg IV again this am. Per charting yesterday was the first net negative day. Suggest PRN diuresis over the weekend as well. My partner is rounding but will likely see as needed. Continue to wean for sats >88% 07/11/21: Lasix 40mg IV this am. Attempt to prone if able. Attempt to achieve daily net negative state. Wean for sats >88%. Guarded prognosis. Will change prednisone to 5mg daily starting tomorrow. 07/09/21: Echo shows diastolic dysfunction. Will given an additional 40 of IV lasix today. Monitor daily and wean aggressively for sats >88% 07/08/21: Worsening CXR, Gave lasix yesterday and will give again today. Suggest checking echo, ekg. Prognosis is poor now with this change. We have seen COVID cause CAD with [place]. 07/05/21: Will monitor over the weekend. Worst case scenario, may need to go back up to Prednisone 20 at least. Prone if able. Unsure why all of sudden oxygen requirement increasing. Will repeat CXR. 07/03/21: Down to 10 of prednisone. Will keep through the weekend and then drop to 5 on Thursday. PT/OT assessment if not done. Suggest maybe weaning flow now given FiO2 down to 50%. Prognosis is still guarded. 07/01/21: Will drop steroids to 10mg daily starting tomorrow. Wean for sats >88%. Prone. PT/OT should be seeing now that oxygen requirement is down more. 06/28/21: Continue to wean as tolerated. Will drop steroids down even further next week. Will see PRN over the weekend. 06/26/21: Will drop steroids down to 20 starting tomorrow. Prone. Continue to wean as tolerated. 06/24/21: Continue Pred, will drop to 20 daily tomorrow. Prone if able. Hopeful they can wean FiO2 more. May need to consider increasing flow for a while. 06/21/21: Continue pred at 40, will decrease likely Thursday/Thursday to 20 daily. Prone if able. Continue to wean as tolerated. Prognosis still remains guarded. 06/20/21: Will drop steroids down to 40 today. Proning. Continue to wean FiO2. 06/18/21: Wean Fio2 for sats >88%. Please encourage proning. Drop steroids down to 40 on . 06/14/21: Continue oral steroid therapy. Will do further weaning next week. Wean for sats >88% and prone as tolerated. Will see as needed over the weekend. 06/13/21: Will change to prednisone 60 daily starting tomorrow. Prone if able and wean for sats >88% 06/11/21: no new recs, will change to oral steroids tomorrow, continue to prone if able and wean for sats >88% 06/10/21: Will change to oral steroids on Thursday to begin prolonged taper 06/06/21: Continue to wean as tolerated, will drop steroids on tomorrow. 06/04/21: Clinically no change. Will drop steroids down the end of this week. 05/31/21: Clinically no change. Not eligible for LTACH. Encourage Proning. Will drop steroids down to 40 q8 05/29/21: No acute changes clinically. Still on HFNC but not really able to wean. Continue to encourage proning. Will drop steroids further on Thursday. 05/27/21: No improvement over the weekend but also no worsening. No other strategies to offer. Please continue to encourage patient to prone. I dropped steroids on yesterday. Will wean more later in the week. 05/24/21: No new recs again for today. Will see as needed over the weekend but follow chart peripherally for changes. 05/22/21: No new recs for today. Prognosis remains guarded. 05/21/21: Wean as tolerated. Prone if able. Guarded prognosis 05/20/21: COntinue current level of care. 05/17/21: Prone if possible. Wean FiO2 for sats >88%. Continue scheduled ativan. Prognosis is very very guarded. Unfunded so not a candidate for LTACH 05/16/21: Prone if willing. Wean FIO2 if patient will allow. Anxiety control. Prognosis still remains very guarded. 05/15/21: Not sure if MAR is accurate but may have only gotten one dose of scheduled anixolytic therapy. Continue proning as tolerated, and wean FiO2 and flow for sats >88%. Prognosi remains very very guarded to poor. 05/14/21: Will discontinue the buspar and make the ativan scheduled but will do q6 as oppose to q4 and attempt to leave parameters for nursing when not to give. If anxiety could be controlled, feel that patient could be weaned further. She has no funding so she is not a candidate for LTACH. Prone if possible. Guarded prognosis. This is her 28 day. 05/13/21: Ordered buspar 10 BID to start with to help with anxiety. Please continue to wean FiO2 as tolerated. Will remind nurse that there is PRN ativan available. Continue higher doses of steroids. Prone if able. 05/12/21: Patient may need something longer acting for anxiety. Per chart has not gotten any ativan in days. Would be ok with either buspar or low dose klonopin bid. COntinue higher doses of steroids as patient seems to be re sponding. Prone if possible. 05/11/21: Continue high doses of steroids and continue to wean for sats >88%. Please encourage proning. 05/10/21: Will continue this dose of steroid at least through the weekend and assess for improvement. will speak with RT about aggressive weaning. Full dose anticoagulation continues. Very very guarded to poor prognosis. 05/09/21: Going to consider increasing steroids to 125q8, maybe as early as tomorrow. continue full dose anticoagulation. 05/08/21: Continue anticoagulation and steroids. Prone if possible. Anxiety control. No objection to CTA if this can happen. Very very guarded prognosis. 05/07/21: Spoke with IMS, not opposed to full dose anticoagulation. If patient goes back on NRB HFNC combo may need to consider restarting PPN again. Enc ourage proning. Guarded prognosis. 05/06/21: Continue to wean FiO2 and flow for sats >88%. Tolerating diet now so will stop PPN. Continue anxiety control. Continue IV steroids. Would not object to transfer to COVID [facility] if bed available. Not sure why she was titrated back up to 100% from 85 as all sats documented in the RT's notes were acceptable. Same for under vital signs as well. 05/03/21: Set back last night from yesterday. Continue bipap therapy for now and attempt HFNC maybe later this afternoon. Continue to use PRN ativan but may need to schedule as she likely took off mask from anxiety. Continue IV steroids. Hold on transfer to COVID Floor. 05/02/21: Continue to wean FiO2 as tolerated for sats >88%. Will continue bipap at night. Patient has no funding so not a candidate for LTACH. Given that she has been stable and not requiring the combo of HFNC and NRB, will consider moving to COVID floor. 05/01/21: Continue to wean FiO2 for sats >88%. A sat of 90 is more than acceptable and oxygen should not be increased for this unless patient desats and remains at a sat lower than 88. Bipap at night to give some form of relief and HFNC during the day. Currently on just this alone which is improvement. Ok with daily diuresis but must monitor renal function and BP closely. She was over diuresed last week and we ended up giving fluid back. Prognosis remains guarded. 04/30/21: Will start CLinimix today for nutritional support, without electrolytes. Check labs in am. Prone if able. Continue precedex for anxiety. Very very guarded prognosis. Attempting our best to not intubate. 04/29/21: Continue precedex. Continue IV solumedrol. Prone if able. Guarded prognosis. 04/28/21: Continue Precedex. Picc team attempting to place line now. Stable on Bipap. Ordered steroids IV solumedrol to start today. Prognosis remains guarded, still at very high risk for intubation. 04/27/21: Hypotension improving/improved. Hold on any further lasix dosing. Continue precedex to help with anxeity. later today please attempt HFNC with NRB if needed. Attempt to feed if possible. Steroids end today, please order solumedrol 40q8 to start tomorrow (04/28/21). guarded prognosis. 04/26/21: Hypotension today, most likely from precedex use and diuresis that I did the last several days. Will bolus again today. Consider midodrine if BP does not respond. 04/25/21: Lasix again today. Keep PRN ativan for now. Hold on precedex for now. Guarded prognosis. Labs ordered for tomorrow. 04/24/21: Lasix today. Will also start patient on low dose PRN ativan. If this does not help will then try precedex. Guarded prognosis. 04/23/21: Prone as tolerated. No lasix today. Continue decadron. Guarded prognosis. High risk for intubation and high mortality with intubation. 04/19/21: Prone as tolerated during the day and sleep prone at night. Continue IV remdesivir and steroids. Did get actemra. Guarded prognosis. 1. Daily net negative state 2. Prone if possible 3. IV remdesivir. 4. Should be a candidate for Actemra 5. IV steroids 6. Guarded Prognosis Subjective Date of service: 08/26/21 Principal diagnosis: Covid-19 Interval history: No acute events. Down to 25 and 50 with good sats. Still on steroids. Objective Vital Signs - 12hr 08/25/21 08/26/21 08/26/21 23:39 00:00 01:00 Temperature 98.6 F Pulse Rate 100 H 102 H 102 H Pulse Rate [ 112 H From Monitor] Respiratory 30 H 31 H 25 H Rate Blood Pressure 120/55 127/65 122/77 O2 Sat by Pulse 97 93 91 Oximetry 08/26/21 08/26/21 08/26/21 02:00 02:20 03:00 Temperature Pulse Rate 97 H 99 H Pulse Rate [ From Monitor] Respiratory 26 H 26 H Rate Blood Pressure 110/58 110/58 O2 Sat by Pulse 93 96 96 Oximetry 08/26/21 08/26/21 08/26/21 04:00 05:00 06:00 Temperature 98.2 F Pulse Rate 87 88 90 Pulse Rate [ 112 H From Monitor] Respiratory 23 24 24 Rate Blood Pressure 102/54 111/64 116/54 O2 Sat by Pulse 94 96 96 Oximetry 08/26/21 08/26/21 08/26/21 06:39 07:00 07:58 Temperature 97.7 F Pulse Rate 93 H Pulse Rate [ From Monitor] Respiratory 25 H Rate Blood Pressure 118/67 O2 Sat by Pulse 95 95 Oximetry 08/26/21 08/26/21 08/26/21 08:00 09:00 10:00 Temperature 98.6 F Pulse Rate 108 H Pulse Rate [ 108 H From Monitor] Respiratory 36 H Rate Blood Pressure 123/59 120/59 122/60 O2 Sat by Pulse 92 98 97 Oximetry 08/26/21 11:00 Temperature Pulse Rate 95 H Pulse Rate [ From Monitor] Respiratory Rate Blood Pressure 127/73 O2 Sat by Pulse 94 Oximetry Constitutional: alert, other (on hiflo o2) Eyes: non-icteric ENT: oropharynx moist Neck: supple Effort: normal Ascultation: Bilateral: diminished breath sounds Cardiovascular: regular rate and rhythm Gastrointestinal: normoactive bowel sounds, soft, non-tender, non-distended Integumentary: normal Extremities: no cyanosis, no edema, pink and warm Neurologic: non-focal exam, pupils equal and round Psychiatric: mood appropriate, affect normal CBC and BMP: 07/23/21 04:35 08/08/21 04:51 ABG, PT/INR, D-dimer: ABG ABG pH 7.417 (7.320-7.450) 07/23/21 18:11 POC ABG pCO2 78.3 mmHg (32.0-48.0) H 07/23/21 18:11 ABG pCO2 85.7 mm Hg 07/22/21 12:05 POC ABG pO2 80.7 mmHg (83-108) L 07/23/21 18:11 ABG pO2 66.1 mm Hg (80.0-90.0) L 07/22/21 12:05 POC ABG HCO3 49.3 07/23/21 18:11 ABG O2 Saturation 96.7 (0-100) 07/23/21 18:11 PT/INR, D-dimer D-Dimer 638.35 ng/mlDDU (0-234) H 07/09/21 04:45 Abnormal lab findings: Abnormal Labs 04/16/21 04/16/21 04/16/21 11:42 11:42 11:42 WBC MCV MCH MCHC RDW 16.1 H Lymph % (Auto) 7.8 L Dickson % (Auto) Eos % (Auto) Lymph # (Auto) 0.8 L Dickson # (Auto) Eos # (Auto) Baso # (Auto) Seg Neutrophils % 87.7 H Seg Neuts % (Manual) Lymphocytes % (Manual) Seg Neutrophils # 8.5 H Seg Neutrophils # Man Lymphocytes # (Manual) D-Dimer 338.70 H ABG pH POC ABG pCO2 POC ABG pO2 ABG pO2 ABG HCO3 ABG O2 Saturation ABG Base Excess ABG Oxyhemoglobin ABG Sodium ABG Chloride ABG Glucose Oxyhemoglobin Carboxyhemoglobin Sodium Potassium Chloride Carbon Dioxide BUN Creatinine Glucose 194 H POC Glucose Hemoglobin A1c Magnesium Ferritin AST ALT Alkaline Phosphatase Lactate Dehydrogenase C-Reactive Protein Total Protein 8.4 H Albumin 3.8 L Arterial Blood Glucose Coronavirus (PCR) 04/16/21 04/16/21 04/17/21 11:42 11:42 03:50 WBC MCV MCH MCHC RDW 16.0 H Lymph % (Auto) 7.7 L Dickson % (Auto) Eos % (Auto) Lymph # (Auto) 0.6 L Dickson # (Auto) Eos # (Auto) Baso # (Auto) Seg Neutrophils % 89.8 H Seg Neuts % (Manual) Lymphocytes % (Manual) Seg Neutrophils # Seg Neutrophils # Man Lymphocytes # (Manual) D-Dimer ABG pH POC ABG pCO2 POC ABG pO2 ABG pO2 ABG HCO3 ABG O2 Saturation ABG Base Excess ABG Oxyhemoglobin ABG Sodium ABG Chloride ABG Glucose Oxyhemoglobin Carboxyhemoglobin Sodium Potassium Chloride Carbon Dioxide BUN Creatinine Glucose 195 H POC Glucose Hemoglobin A1c Magnesium Ferritin 254.3 H AST ALT Alkaline Phosphatase Lactate Dehydrogenase 359 H C-Reactive Protein 15.20 H Total Protein Albumin Arterial Blood Glucose Coronavirus (PCR) 04/17/21 04/17/21 04/17/21 03:50 08:26 08:26 WBC MCV MCH MCHC RDW Lymph % (Auto) Dickson % (Auto) Eos % (Auto) Lymph # (Auto) Dickson # (Auto) Eos # (Auto) Baso # (Auto) Seg Neutrophils % Seg Neuts % (Manual) Lymphocytes % (Manual) Seg Neutrophils # Seg Neutrophils # Man Lymphocytes # (Manual) D-Dimer 262.48 H ABG pH POC ABG pCO2 POC ABG pO2 ABG pO2 ABG HCO3 ABG O2 Saturation ABG Base Excess ABG Oxyhemoglobin ABG Sodium ABG Chloride ABG Glucose Oxyhemoglobin Carboxyhemoglobin Sodium Potassium Chloride Carbon Dioxide BUN 20 H Creatinine 0.5 L Glucose 249 H 225 H POC Glucose Hemoglobin A1c Magnesium Ferritin AST ALT Alkaline Phosphatase Lactate Dehydrogenase 338 H C-Reactive Protein 17.20 H Total Protein Albumin 3.2 L Arterial Blood Glucose Coronavirus (PCR) 04/17/21 04/17/21 04/17/21 08:26 15:04 Unknown WBC MCV MCH MCHC RDW Lymph % (Auto) Dickson % (Auto) Eos % (Auto) Lymph # (Auto) Dickson # (Auto) Eos # (Auto) Baso # (Auto) Seg Neutrophils % Seg Neuts % (Manual) Lymphocytes % (Manual) Seg Neutrophils # Seg Neutrophils # Man Lymphocytes # (Manual) D-Dimer ABG pH POC ABG pCO2 POC ABG pO2 ABG pO2 ABG HCO3 ABG O2 Saturation ABG Base Excess ABG Oxyhemoglobin ABG Sodium ABG Chloride ABG Glucose Oxyhemoglobin Carboxyhemoglobin Sodium Potassium Chloride Carbon Dioxide BUN 20 H Creatinine 0.5 L Glucose 246 H POC Glucose Hemoglobin A1c Magnesium Ferritin 392.0 H AST ALT Alkaline Phosphatase Lactate Dehydrogenase C-Reactive Protein Total Protein 8.3 H Albumin 3.1 L Arterial Blood Glucose Coronavirus (PCR) Positive A 04/18/21 04/18/21 04/18/21 05:06 05:06 07:36 WBC 11.6 H MCV MCH MCHC RDW 16.1 H Lymph % (Auto) Dickson % (Auto) Eos % (Auto) Lymph # (Auto) Dickson # (Auto) Eos # (Auto) Baso # (Auto) Seg Neutrophils % Seg Neuts % (Manual) Lymphocytes % (Manual) Seg Neutrophils # Seg Neutrophils # Man Lymphocytes # (Manual) D-Dimer ABG pH POC ABG pCO2 POC ABG pO2 ABG pO2 ABG HCO3 ABG O2 Saturation ABG Base Excess ABG Oxyhemoglobin ABG Sodium ABG Chloride ABG Glucose Oxyhemoglobin Carboxyhemoglobin Sodium Potassium 5.2 H Chloride Carbon Dioxide BUN 22 H Creatinine 0.5 L Glucose 315 H POC Glucose Hemoglobin A1c 8.5 H Magnesium Ferritin AST ALT Alkaline Phosphatase Lactate Dehydrogenase C-Reactive Protein Total Protein Albumin 3.3 L Arterial Blood Glucose Coronavirus (PCR) 04/18/21 04/18/21 04/18/21 11:59 16:43 23:24 WBC MCV MCH MCHC RDW Lymph % (Auto) Dickson % (Auto) Eos % (Auto) Lymph # (Auto) Dickson # (Auto) Eos # (Auto) Baso # (Auto) Seg Neutrophils % Seg Neuts % (Manual) Lymphocytes % (Manual) Seg Neutrophils # Seg Neutrophils # Man Lymphocytes # (Manual) D-Dimer ABG pH POC ABG pCO2 POC ABG pO2 ABG pO2 ABG HCO3 ABG O2 Saturation ABG Base Excess ABG Oxyhemoglobin ABG Sodium ABG Chloride ABG Glucose Oxyhemoglobin Carboxyhemoglobin Sodium Potassium Chloride Carbon Dioxide BUN Creatinine Glucose POC Glucose 284 H 273 H 290 H Hemoglobin A1c Magnesium Ferritin AST ALT Alkaline Phosphatase Lactate Dehydrogenase C-Reactive Protein Total Protein Albumin Arterial Blood Glucose Coronavirus (PCR) 04/19/21 04/19/21 04/19/21 04:19 04:19 08:10 WBC MCV MCH MCHC RDW 15.7 H Lymph % (Auto) Dickson % (Auto) Eos % (Auto) Lymph # (Auto) Dickson # (Auto) Eos # (Auto) Baso # (Auto) Seg Neutrophils % Seg Neuts % (Manual) Lymphocytes % (Manual) Seg Neutrophils # Seg Neutrophils # Man Lymphocytes # (Manual) D-Dimer ABG pH POC ABG pCO2 POC ABG pO2 ABG pO2 ABG HCO3 ABG O2 Saturation ABG Base Excess ABG Oxyhemoglobin ABG Sodium ABG Chloride ABG Glucose Oxyhemoglobin Carboxyhemoglobin Sodium Potassium Chloride Carbon Dioxide BUN 27 H Creatinine 0.4 L Glucose 184 H POC Glucose 194 H Hemoglobin A1c Magnesium Ferritin AST ALT Alkaline Phosphatase Lactate Dehydrogenase C-Reactive Protein Total Protein Albumin 3.1 L Arterial Blood Glucose Coronavirus (PCR) 04/19/21 04/19/21 04/19/21 11:38 16:25 22:04 WBC MCV MCH MCHC RDW Lymph % (Auto) Dickson % (Auto) Eos % (Auto) Lymph # (Auto) Dickson # (Auto) Eos # (Auto) Baso # (Auto) Seg Neutrophils % Seg Neuts % (Manual) Lymphocytes % (Manual) Seg Neutrophils # Seg Neutrophils # Man Lymphocytes # (Manual) D-Dimer ABG pH POC ABG pCO2 POC ABG pO2 ABG pO2 ABG HCO3 ABG O2 Saturation ABG Base Excess ABG Oxyhemoglobin ABG Sodium ABG Chloride ABG Glucose Oxyhemoglobin Carboxyhemoglobin Sodium Potassium Chloride Carbon Dioxide BUN Creatinine Glucose POC Glucose 224 H 297 H 251 H Hemoglobin A1c Magnesium Ferritin AST ALT Alkaline Phosphatase Lactate Dehydrogenase C-Reactive Protein Total Protein Albumin Arterial Blood Glucose Coronavirus (PCR) 04/20/21 04/20/21 04/20/21 05:28 08:43 16:21 WBC MCV MCH MCHC RDW Lymph % (Auto) Dickson % (Auto) Eos % (Auto) Lymph # (Auto) Dickson # (Auto) Eos # (Auto) Baso # (Auto) Seg Neutrophils % Seg Neuts % (Manual) Lymphocytes % (Manual) Seg Neutrophils # Seg Neutrophils # Man Lymphocytes # (Manual) D-Dimer ABG pH POC ABG pCO2 POC ABG pO2 ABG pO2 ABG HCO3 ABG O2 Saturation ABG Base Excess ABG Oxyhemoglobin ABG Sodium ABG Chloride ABG Glucose Oxyhemoglobin Carboxyhemoglobin Sodium Potassium Chloride Carbon Dioxide BUN 27 H Creatinine Glucose 192 H POC Glucose 173 H 253 H Hemoglobin A1c Magnesium Ferritin AST ALT Alkaline Phosphatase Lactate Dehydrogenase C-Reactive Protein Total Protein Albumin 3.0 L Arterial Blood Glucose Coronavirus (PCR) 04/21/21 04/21/21 04/21/21 07:58 12:05 16:08 WBC MCV MCH MCHC RDW Lymph % (Auto) Dickson % (Auto) Eos % (Auto) Lymph # (Auto) Dickson # (Auto) Eos # (Auto) Baso # (Auto) Seg Neutrophils % Seg Neuts % (Manual) Lymphocytes % (Manual) Seg Neutrophils # Seg Neutrophils # Man Lymphocytes # (Manual) D-Dimer ABG pH POC ABG pCO2 POC ABG pO2 ABG pO2 ABG HCO3 ABG O2 Saturation ABG Base Excess ABG Oxyhemoglobin ABG Sodium ABG Chloride ABG Glucose Oxyhemoglobin Carboxyhemoglobin Sodium Potassium Chloride Carbon Dioxide BUN Creatinine Glucose POC Glucose 140 H 252 H 214 H Hemoglobin A1c Magnesium Ferritin AST ALT Alkaline Phosphatase Lactate Dehydrogenase C-Reactive Protein Total Protein Albumin Arterial Blood Glucose Coronavirus (PCR) 04/21/21 04/22/21 04/22/21 21:42 08:37 12:01 WBC MCV MCH MCHC RDW Lymph % (Auto) Dickson % (Auto) Eos % (Auto) Lymph # (Auto) Dickson # (Auto) Eos # (Auto) Baso # (Auto) Seg Neutrophils % Seg Neuts % (Manual) Lymphocytes % (Manual) Seg Neutrophils # Seg Neutrophils # Man Lymphocytes # (Manual) D-Dimer ABG pH 7.457 H POC ABG pCO2 POC ABG pO2 49.4 L ABG pO2 ABG HCO3 ABG O2 Saturation ABG Base Excess ABG Oxyhemoglobin 85.6 L ABG Sodium ABG Chloride ABG Glucose 121 H Oxyhemoglobin Carboxyhemoglobin 0.3 L Sodium Potassium Chloride Carbon Dioxide BUN Creatinine Glucose POC Glucose 162 H 227 H Hemoglobin A1c Magnesium Ferritin AST ALT Alkaline Phosphatase Lactate Dehydrogenase C-Reactive Protein Total Protein Albumin Arterial Blood Glucose 121 H Coronavirus (PCR) 04/22/21 04/22/21 04/23/21 16:26 22:23 04:52 WBC MCV MCH MCHC RDW 15.7 H Lymph % (Auto) Dickson % (Auto) Eos % (Auto) Lymph # (Auto) Dickson # (Auto) Eos # (Auto) Baso # (Auto) Seg Neutrophils % Seg Neuts % (Manual) Lymphocytes % (Manual) Seg Neutrophils # Seg Neutrophils # Man Lymphocytes # (Manual) D-Dimer ABG pH POC ABG pCO2 POC ABG pO2 ABG pO2 ABG HCO3 ABG O2 Saturation ABG Base Excess ABG Oxyhemoglobin ABG Sodium ABG Chloride ABG Glucose Oxyhemoglobin Carboxyhemoglobin Sodium Potassium Chloride Carbon Dioxide BUN Creatinine Glucose POC Glucose 200 H 136 H Hemoglobin A1c Magnesium Ferritin AST ALT Alkaline Phosphatase Lactate Dehydrogenase C-Reactive Protein Total Protein Albumin Arterial Blood Glucose Coronavirus (PCR) 04/23/21 04/23/21 04/23/21 04:52 12:06 17:41 WBC MCV MCH MCHC RDW Lymph % (Auto) Dickson % (Auto) Eos % (Auto) Lymph # (Auto) Dickson # (Auto) Eos # (Auto) Baso # (Auto) Seg Neutrophils % Seg Neuts % (Manual) Lymphocytes % (Manual) Seg Neutrophils # Seg Neutrophils # Man Lymphocytes # (Manual) D-Dimer ABG pH POC ABG pCO2 POC ABG pO2 ABG pO2 ABG HCO3 ABG O2 Saturation ABG Base Excess ABG Oxyhemoglobin ABG Sodium ABG Chloride ABG Glucose Oxyhemoglobin Carboxyhemoglobin Sodium 136 L Potassium Chloride 97.7 L Carbon Dioxide BUN 23 H Creatinine Glucose 101 H POC Glucose 202 H 169 H Hemoglobin A1c Magnesium Ferritin AST 46 H ALT Alkaline Phosphatase Lactate Dehydrogenase C-Reactive Protein Total Protein Albumin 3.3 L Arterial Blood Glucose Coronavirus (PCR) 04/23/21 04/24/21 04/24/21 23:08 05:17 08:38 WBC MCV MCH MCHC RDW Lymph % (Auto) Dickson % (Auto) Eos % (Auto) Lymph # (Auto) Dickson # (Auto) Eos # (Auto) Baso # (Auto) Seg Neutrophils % Seg Neuts % (Manual) Lymphocytes % (Manual) Seg Neutrophils # Seg Neutrophils # Man Lymphocytes # (Manual) D-Dimer ABG pH POC ABG pCO2 POC ABG pO2 ABG pO2 ABG HCO3 ABG O2 Saturation ABG Base Excess ABG Oxyhemoglobin ABG Sodium ABG Chloride ABG Glucose Oxyhemoglobin Carboxyhemoglobin Sodium Potassium Chloride Carbon Dioxide BUN Creatinine Glucose POC Glucose 111 H 108 H 126 H Hemoglobin A1c Magnesium Ferritin AST ALT Alkaline Phosphatase Lactate Dehydrogenase C-Reactive Protein Total Protein Albumin Arterial Blood Glucose Coronavirus (PCR) 04/24/21 04/24/21 04/24/21 11:54 17:57 21:23 WBC MCV MCH MCHC RDW Lymph % (Auto) Dickson % (Auto) Eos % (Auto) Lymph # (Auto) Dickson # (Auto) Eos # (Auto) Baso # (Auto) Seg Neutrophils % Seg Neuts % (Manual) Lymphocytes % (Manual) Seg Neutrophils # Seg Neutrophils # Man Lymphocytes # (Manual) D-Dimer ABG pH POC ABG pCO2 POC ABG pO2 ABG pO2 ABG HCO3 ABG O2 Saturation ABG Base Excess ABG Oxyhemoglobin ABG Sodium ABG Chloride ABG Glucose Oxyhemoglobin Carboxyhemoglobin Sodium Potassium Chloride Carbon Dioxide BUN Creatinine Glucose POC Glucose 147 H 177 H 138 H Hemoglobin A1c Magnesium Ferritin AST ALT Alkaline Phosphatase Lactate Dehydrogenase C-Reactive Protein Total Protein Albumin Arterial Blood Glucose Coronavirus (PCR) 04/25/21 04/25/21 04/25/21 07:06 11:23 15:43 WBC MCV MCH MCHC RDW Lymph % (Auto) Dickson % (Auto) Eos % (Auto) Lymph # (Auto) Dickson # (Auto) Eos # (Auto) Baso # (Auto) Seg Neutrophils % Seg Neuts % (Manual) Lymphocytes % (Manual) Seg Neutrophils # Seg Neutrophils # Man Lymphocytes # (Manual) D-Dimer ABG pH POC ABG pCO2 POC ABG pO2 ABG pO2 ABG HCO3 ABG O2 Saturation ABG Base Excess ABG Oxyhemoglobin ABG Sodium ABG Chloride ABG Glucose Oxyhemoglobin Carboxyhemoglobin Sodium Potassium Chloride Carbon Dioxide BUN Creatinine Glucose POC Glucose 147 H 169 H 227 H Hemoglobin A1c Magnesium Ferritin AST ALT Alkaline Phosphatase Lactate Dehydrogenase C-Reactive Protein Total Protein Albumin Arterial Blood Glucose Coronavirus (PCR) 04/25/21 04/26/21 04/26/21 21:22 02:45 05:15 WBC MCV MCH MCHC RDW Lymph % (Auto) Dickson % (Auto) Eos % (Auto) Lymph # (Auto) Dickson # (Auto) Eos # (Auto) Baso # (Auto) Seg Neutrophils % Seg Neuts % (Manual) Lymphocytes % (Manual) Seg Neutrophils # Seg Neutrophils # Man Lymphocytes # (Manual) D-Dimer ABG pH POC ABG pCO2 POC ABG pO2 70.7 L ABG pO2 ABG HCO3 ABG O2 Saturation ABG Base Excess ABG Oxyhemoglobin 93.0 L ABG Sodium 132.7 L ABG Chloride ABG Glucose 115 H Oxyhemoglobin Carboxyhemoglobin Sodium Potassium Chloride 95.8 L Carbon Dioxide 32 H BUN 20 H Creatinine Glucose 102 H POC Glucose 196 H Hemoglobin A1c Magnesium Ferritin AST ALT Alkaline Phosphatase Lactate Dehydrogenase C-Reactive Protein Total Protein Albumin Arterial Blood Glucose 115 H Coronavirus (PCR) 04/26/21 04/26/21 04/26/21 11:49 16:09 21:07 WBC MCV MCH MCHC RDW Lymph % (Auto) Dickson % (Auto) Eos % (Auto) Lymph # (Auto) Dickson # (Auto) Eos # (Auto) Baso # (Auto) Seg Neutrophils % Seg Neuts % (Manual) Lymphocytes % (Manual) Seg Neutrophils # Seg Neutrophils # Man Lymphocytes # (Manual) D-Dimer ABG pH POC ABG pCO2 POC ABG pO2 ABG pO2 ABG HCO3 ABG O2 Saturation ABG Base Excess ABG Oxyhemoglobin ABG Sodium ABG Chloride ABG Glucose Oxyhemoglobin Carboxyhemoglobin Sodium Potassium Chloride Carbon Dioxide BUN Creatinine Glucose POC Glucose 114 H 188 H 136 H Hemoglobin A1c Magnesium Ferritin AST ALT Alkaline Phosphatase Lactate Dehydrogenase C-Reactive Protein Total Protein Albumin Arterial Blood Glucose Coronavirus (PCR) 04/27/21 04/27/21 04/28/21 17:34 22:12 08:26 WBC MCV MCH MCHC RDW Lymph % (Auto) Dickson % (Auto) Eos % (Auto) Lymph # (Auto) Dickson # (Auto) Eos # (Auto) Baso # (Auto) Seg Neutrophils % Seg Neuts % (Manual) Lymphocytes % (Manual) Seg Neutrophils # Seg Neutrophils # Man Lymphocytes # (Manual) D-Dimer ABG pH POC ABG pCO2 POC ABG pO2 ABG pO2 ABG HCO3 ABG O2 Saturation ABG Base Excess ABG Oxyhemoglobin ABG Sodium ABG Chloride ABG Glucose Oxyhemoglobin Carboxyhemoglobin Sodium Potassium Chloride Carbon Dioxide BUN Creatinine Glucose POC Glucose 128 H 159 H 69 L Hemoglobin A1c Magnesium Ferritin AST ALT Alkaline Phosphatase Lactate Dehydrogenase C-Reactive Protein Total Protein Albumin Arterial Blood Glucose Coronavirus (PCR) 04/28/21 04/28/21 04/29/21 12:22 21:11 06:05 WBC MCV MCH MCHC RDW Lymph % (Auto) Dickson % (Auto) Eos % (Auto) Lymph # (Auto) Dickson # (Auto) Eos # (Auto) Baso # (Auto) Seg Neutrophils % Seg Neuts % (Manual) Lymphocytes % (Manual) Seg Neutrophils # Seg Neutrophils # Man Lymphocytes # (Manual) D-Dimer ABG pH POC ABG pCO2 POC ABG pO2 ABG pO2 ABG HCO3 ABG O2 Saturation ABG Base Excess ABG Oxyhemoglobin ABG Sodium ABG Chloride ABG Glucose Oxyhemoglobin Carboxyhemoglobin Sodium 132 L Potassium Chloride 94.4 L Carbon Dioxide BUN Creatinine 0.2 L D Glucose 140 H POC Glucose 141 H 171 H Hemoglobin A1c Magnesium Ferritin AST ALT Alkaline Phosphatase Lactate Dehydrogenase C-Reactive Protein Total Protein Albumin Arterial Blood Glucose Coronavirus (PCR) 04/29/21 04/29/21 04/29/21 06:05 07:24 11:36 WBC MCV MCH MCHC 35 H RDW 15.9 H Lymph % (Auto) Dickson % (Auto) Eos % (Auto) Lymph # (Auto) Dickson # (Auto) Eos # (Auto) Baso # (Auto) Seg Neutrophils % Seg Neuts % (Manual) Lymphocytes % (Manual) Seg Neutrophils # Seg Neutrophils # Man Lymphocytes # (Manual) D-Dimer ABG pH POC ABG pCO2 POC ABG pO2 ABG pO2 ABG HCO3 ABG O2 Saturation ABG Base Excess ABG Oxyhemoglobin ABG Sodium ABG Chloride ABG Glucose Oxyhemoglobin Carboxyhemoglobin Sodium Potassium Chloride Carbon Dioxide BUN Creatinine Glucose POC Glucose 141 H 220 H Hemoglobin A1c Magnesium Ferritin AST ALT Alkaline Phosphatase Lactate Dehydrogenase C-Reactive Protein Total Protein Albumin Arterial Blood Glucose Coronavirus (PCR) 04/29/21 04/29/21 04/29/21 14:23 15:30 17:06 WBC MCV MCH MCHC RDW Lymph % (Auto) Dickson % (Auto) Eos % (Auto) Lymph # (Auto) Dickson # (Auto) Eos # (Auto) Baso # (Auto) Seg Neutrophils % Seg Neuts % (Manual) Lymphocytes % (Manual) Seg Neutrophils # Seg Neutrophils # Man Lymphocytes # (Manual) D-Dimer ABG pH POC ABG pCO2 POC ABG pO2 ABG pO2 52.6 L ABG HCO3 ABG O2 Saturation 86.4 L ABG Base Excess ABG Oxyhemoglobin ABG Sodium ABG Chloride ABG Glucose Oxyhemoglobin 84.6 L Carboxyhemoglobin Sodium Potassium Chloride Carbon Dioxide BUN Creatinine Glucose POC Glucose 173 H 158 H Hemoglobin A1c Magnesium Ferritin AST ALT Alkaline Phosphatase Lactate Dehydrogenase C-Reactive Protein Total Protein Albumin Arterial Blood Glucose Coronavirus (PCR) 04/29/21 04/30/21 04/30/21 21:27 07:16 08:00 WBC MCV MCH MCHC RDW 16.1 H Lymph % (Auto) Dickson % (Auto) Eos % (Auto) Lymph # (Auto) Dickson # (Auto) Eos # (Auto) Baso # (Auto) Seg Neutrophils % Seg Neuts % (Manual) Lymphocytes % (Manual) Seg Neutrophils # Seg Neutrophils # Man Lymphocytes # (Manual) D-Dimer ABG pH POC ABG pCO2 POC ABG pO2 ABG pO2 ABG HCO3 ABG O2 Saturation ABG Base Excess ABG Oxyhemoglobin ABG Sodium ABG Chloride ABG Glucose Oxyhemoglobin Carboxyhemoglobin Sodium Potassium Chloride Carbon Dioxide BUN Creatinine Glucose POC Glucose 244 H 175 H Hemoglobin A1c Magnesium Ferritin AST ALT Alkaline Phosphatase Lactate Dehydrogenase C-Reactive Protein Total Protein Albumin Arterial Blood Glucose Coronavirus (PCR) 04/30/21 04/30/21 04/30/21 08:00 08:00 11:03 WBC MCV MCH MCHC RDW Lymph % (Auto) Dickson % (Auto) Eos % (Auto) Lymph # (Auto) Dickson # (Auto) Eos # (Auto) Baso # (Auto) Seg Neutrophils % Seg Neuts % (Manual) Lymphocytes % (Manual) Seg Neutrophils # Seg Neutrophils # Man Lymphocytes # (Manual) D-Dimer 1796.87 H ABG pH POC ABG pCO2 POC ABG pO2 ABG pO2 ABG HCO3 ABG O2 Saturation ABG Base Excess ABG Oxyhemoglobin ABG Sodium ABG Chloride ABG Glucose Oxyhemoglobin Carboxyhemoglobin Sodium 135 L Potassium Chloride 96.3 L Carbon Dioxide BUN Creatinine 0.2 L Glucose 153 H POC Glucose 183 H Hemoglobin A1c Magnesium Ferritin AST 41 H ALT 76 H Alkaline Phosphatase 160 H Lactate Dehydrogenase 522 H C-Reactive Protein Total Protein 6.1 L Albumin 3.1 L Arterial Blood Glucose Coronavirus (PCR) 04/30/21 04/30/21 05/01/21 17:04 22:17 05:39 WBC MCV MCH MCHC RDW Lymph % (Auto) Dickson % (Auto) Eos % (Auto) Lymph # (Auto) Dickson # (Auto) Eos # (Auto) Baso # (Auto) Seg Neutrophils % Seg Neuts % (Manual) Lymphocytes % (Manual) Seg Neutrophils # Seg Neutrophils # Man Lymphocytes # (Manual) D-Dimer ABG pH POC ABG pCO2 POC ABG pO2 ABG pO2 ABG HCO3 ABG O2 Saturation ABG Base Excess ABG Oxyhemoglobin ABG Sodium ABG Chloride ABG Glucose Oxyhemoglobin Carboxyhemoglobin Sodium 133 L Potassium Chloride 92.1 L Carbon Dioxide BUN 24 H Creatinine 0.4 L D Glucose 269 H POC Glucose 167 H 208 H Hemoglobin A1c Magnesium Ferritin AST ALT 66 H Alkaline Phosphatase 142 H Lactate Dehydrogenase C-Reactive Protein Total Protein Albumin 3.2 L Arterial Blood Glucose Coronavirus (PCR) 05/01/21 05/01/21 05/01/21 05:39 05:39 07:45 WBC MCV MCH MCHC RDW 16.0 H Lymph % (Auto) Dickson % (Auto) Eos % (Auto) Lymph # (Auto) Dickson # (Auto) Eos # (Auto) Baso # (Auto) Seg Neutrophils % Seg Neuts % (Manual) Lymphocytes % (Manual) Seg Neutrophils # Seg Neutrophils # Man Lymphocytes # (Manual) D-Dimer 3984.95 H ABG pH POC ABG pCO2 POC ABG pO2 ABG pO2 ABG HCO3 ABG O2 Saturation ABG Base Excess ABG Oxyhemoglobin ABG Sodium ABG Chloride ABG Glucose Oxyhemoglobin Carboxyhemoglobin Sodium Potassium Chloride Carbon Dioxide BUN Creatinine Glucose POC Glucose 229 H Hemoglobin A1c Magnesium Ferritin AST ALT Alkaline Phosphatase Lactate Dehydrogenase C-Reactive Protein Total Protein Albumin Arterial Blood Glucose Coronavirus (PCR) 05/01/21 05/01/21 05/01/21 12:10 15:46 21:06 WBC MCV MCH MCHC RDW Lymph % (Auto) Dickson % (Auto) Eos % (Auto) Lymph # (Auto) Dickson # (Auto) Eos # (Auto) Baso # (Auto) Seg Neutrophils % Seg Neuts % (Manual) Lymphocytes % (Manual) Seg Neutrophils # Seg Neutrophils # Man Lymphocytes # (Manual) D-Dimer ABG pH POC ABG pCO2 POC ABG pO2 ABG pO2 ABG HCO3 ABG O2 Saturation ABG Base Excess ABG Oxyhemoglobin ABG Sodium ABG Chloride ABG Glucose Oxyhemoglobin Carboxyhemoglobin Sodium Potassium Chloride Carbon Dioxide BUN Creatinine Glucose POC Glucose 296 H 279 H 232 H Hemoglobin A1c Magnesium Ferritin AST ALT Alkaline Phosphatase Lactate Dehydrogenase C-Reactive Protein Total Protein Albumin Arterial Blood Glucose Coronavirus (PCR) 05/02/21 05/02/21 05/02/21 04:55 04:55 04:55 WBC MCV MCH MCHC RDW 16.1 H Lymph % (Auto) Dickson % (Auto) Eos % (Auto) Lymph # (Auto) Dickson # (Auto) Eos # (Auto) Baso # (Auto) Seg Neutrophils % Seg Neuts % (Manual) Lymphocytes % (Manual) Seg Neutrophils # Seg Neutrophils # Man Lymphocytes # (Manual) D-Dimer 1401.08 H ABG pH POC ABG pCO2 POC ABG pO2 ABG pO2 ABG HCO3 ABG O2 Saturation ABG Base Excess ABG Oxyhemoglobin ABG Sodium ABG Chloride ABG Glucose Oxyhemoglobin Carboxyhemoglobin Sodium 131 L Potassium Chloride 95.5 L Carbon Dioxide BUN 20 H Creatinine 0.3 L Glucose 288 H POC Glucose Hemoglobin A1c Magnesium Ferritin AST ALT Alkaline Phosphatase Lactate Dehydrogenase C-Reactive Protein Total Protein 6.0 L Albumin 3.1 L Arterial Blood Glucose Coronavirus (PCR) 05/02/21 05/02/21 05/02/21 07:53 11:45 15:25 WBC MCV MCH MCHC RDW Lymph % (Auto) Dickson % (Auto) Eos % (Auto) Lymph # (Auto) Dickson # (Auto) Eos # (Auto) Baso # (Auto) Seg Neutrophils % Seg Neuts % (Manual) Lymphocytes % (Manual) Seg Neutrophils # Seg Neutrophils # Man Lymphocytes # (Manual) D-Dimer ABG pH POC ABG pCO2 POC ABG pO2 ABG pO2 ABG HCO3 ABG O2 Saturation ABG Base Excess ABG Oxyhemoglobin ABG Sodium ABG Chloride ABG Glucose Oxyhemoglobin Carboxyhemoglobin Sodium Potassium Chloride Carbon Dioxide BUN Creatinine Glucose POC Glucose 180 H 228 H 275 H Hemoglobin A1c Magnesium Ferritin AST ALT Alkaline Phosphatase Lactate Dehydrogenase C-Reactive Protein Total Protein Albumin Arterial Blood Glucose Coronavirus (PCR) 05/02/21 05/03/21 05/03/21 22:56 04:30 04:49 WBC MCV MCH MCHC RDW Lymph % (Auto) Dickson % (Auto) Eos % (Auto) Lymph # (Auto) Dickson # (Auto) Eos # (Auto) Baso # (Auto) Seg Neutrophils % Seg Neuts % (Manual) Lymphocytes % (Manual) Seg Neutrophils # Seg Neutrophils # Man Lymphocytes # (Manual) D-Dimer ABG pH 7.229 L POC ABG pCO2 POC ABG pO2 65.3 L ABG pO2 ABG HCO3 ABG O2 Saturation ABG Base Excess ABG Oxyhemoglobin 87.8 L ABG Sodium 133.0 L ABG Chloride 97.0 L ABG Glucose 403 H Oxyhemoglobin Carboxyhemoglobin Sodium 130 L Potassium Chloride 94.9 L Carbon Dioxide BUN 20 H Creatinine 0.5 L D Glucose 359 H POC Glucose 293 H Hemoglobin A1c Magnesium Ferritin AST 54 H ALT 75 H Alkaline Phosphatase 138 H Lactate Dehydrogenase C-Reactive Protein Total Protein Albumin 3.6 L Arterial Blood Glucose 403 H Coronavirus (PCR) 05/03/21 05/03/21 05/03/21 05:27 11:26 17:57 WBC MCV MCH MCHC RDW Lymph % (Auto) Dickson % (Auto) Eos % (Auto) Lymph # (Auto) Dickson # (Auto) Eos # (Auto) Baso # (Auto) Seg Neutrophils % Seg Neuts % (Manual) Lymphocytes % (Manual) Seg Neutrophils # Seg Neutrophils # Man Lymphocytes # (Manual) D-Dimer ABG pH POC ABG pCO2 POC ABG pO2 ABG pO2 ABG HCO3 ABG O2 Saturation ABG Base Excess ABG Oxyhemoglobin ABG Sodium ABG Chloride ABG Glucose Oxyhemoglobin Carboxyhemoglobin Sodium Potassium Chloride Carbon Dioxide BUN Creatinine Glucose POC Glucose 361 H 297 H 226 H Hemoglobin A1c Magnesium Ferritin AST ALT Alkaline Phosphatase Lactate Dehydrogenase C-Reactive Protein Total Protein Albumin Arterial Blood Glucose Coronavirus (PCR) 05/03/21 05/04/21 05/04/21 23:12 05:12 07:30 WBC MCV MCH MCHC RDW Lymph % (Auto) Dickson % (Auto) Eos % (Auto) Lymph # (Auto) Dickson # (Auto) Eos # (Auto) Baso # (Auto) Seg Neutrophils % Seg Neuts % (Manual) Lymphocytes % (Manual) Seg Neutrophils # Seg Neutrophils # Man Lymphocytes # (Manual) D-Dimer ABG pH POC ABG pCO2 POC ABG pO2 ABG pO2 ABG HCO3 ABG O2 Saturation ABG Base Excess ABG Oxyhemoglobin ABG Sodium ABG Chloride ABG Glucose Oxyhemoglobin Carboxyhemoglobin Sodium Potassium Chloride Carbon Dioxide BUN Creatinine Glucose POC Glucose 282 H 285 H 254 H Hemoglobin A1c Magnesium Ferritin AST ALT Alkaline Phosphatase Lactate Dehydrogenase C-Reactive Protein Total Protein Albumin Arterial Blood Glucose Coronavirus (PCR) 05/04/21 05/04/21 05/04/21 08:58 11:45 16:07 WBC MCV MCH MCHC RDW Lymph % (Auto) Dickson % (Auto) Eos % (Auto) Lymph # (Auto) Dickson # (Auto) Eos # (Auto) Baso # (Auto) Seg Neutrophils % Seg Neuts % (Manual) Lymphocytes % (Manual) Seg Neutrophils # Seg Neutrophils # Man Lymphocytes # (Manual) D-Dimer ABG pH POC ABG pCO2 POC ABG pO2 ABG pO2 ABG HCO3 ABG O2 Saturation ABG Base Excess ABG Oxyhemoglobin ABG Sodium ABG Chloride ABG Glucose Oxyhemoglobin Carboxyhemoglobin Sodium 134 L Potassium Chloride Carbon Dioxide BUN 20 H Creatinine 0.3 L Glucose 267 H POC Glucose 244 H 297 H Hemoglobin A1c Magnesium Ferritin AST ALT Alkaline Phosphatase Lactate Dehydrogenase C-Reactive Protein Total Protein 6.0 L Albumin 3.2 L Arterial Blood Glucose Coronavirus (PCR) 05/04/21 05/05/21 05/05/21 23:32 05:00 05:13 WBC MCV MCH MCHC RDW Lymph % (Auto) Dickson % (Auto) Eos % (Auto) Lymph # (Auto) Dickson # (Auto) Eos # (Auto) Baso # (Auto) Seg Neutrophils % Seg Neuts % (Manual) Lymphocytes % (Manual) Seg Neutrophils # Seg Neutrophils # Man Lymphocytes # (Manual) D-Dimer ABG pH POC ABG pCO2 POC ABG pO2 ABG pO2 ABG HCO3 ABG O2 Saturation ABG Base Excess ABG Oxyhemoglobin ABG Sodium ABG Chloride ABG Glucose Oxyhemoglobin Carboxyhemoglobin Sodium 132 L Potassium Chloride 96.4 L Carbon Dioxide BUN 22 H Creatinine 0.3 L Glucose 228 H POC Glucose 154 H 260 H Hemoglobin A1c Magnesium Ferritin AST ALT 67 H Alkaline Phosphatase Lactate Dehydrogenase C-Reactive Protein Total Protein 6.1 L Albumin 3.2 L Arterial Blood Glucose Coronavirus (PCR) 05/05/21 05/05/21 05/05/21 11:32 17:49 23:07 WBC MCV MCH MCHC RDW Lymph % (Auto) Dickson % (Auto) Eos % (Auto) Lymph # (Auto) Dickson # (Auto) Eos # (Auto) Baso # (Auto) Seg Neutrophils % Seg Neuts % (Manual) Lymphocytes % (Manual) Seg Neutrophils # Seg Neutrophils # Man Lymphocytes # (Manual) D-Dimer ABG pH POC ABG pCO2 POC ABG pO2 ABG pO2 ABG HCO3 ABG O2 Saturation ABG Base Excess ABG Oxyhemoglobin ABG Sodium ABG Chloride ABG Glucose Oxyhemoglobin Carboxyhemoglobin Sodium Potassium Chloride Carbon Dioxide BUN Creatinine Glucose POC Glucose 279 H 308 H 213 H Hemoglobin A1c Magnesium Ferritin AST ALT Alkaline Phosphatase Lactate Dehydrogenase C-Reactive Protein Total Protein Albumin Arterial Blood Glucose Coronavirus (PCR) 05/06/21 05/06/21 05/06/21 05:00 05:00 05:20 WBC MCV MCH MCHC RDW 16.8 H Lymph % (Auto) Dickson % (Auto) Eos % (Auto) Lymph # (Auto) Dickson # (Auto) Eos # (Auto) Baso # (Auto) Seg Neutrophils % Seg Neuts % (Manual) 99.0 H Lymphocytes % (Manual) Seg Neutrophils # Seg Neutrophils # Man 10.9 H Lymphocytes # (Manual) 0.0 L D-Dimer ABG pH POC ABG pCO2 POC ABG pO2 ABG pO2 ABG HCO3 ABG O2 Saturation ABG Base Excess ABG Oxyhemoglobin ABG Sodium ABG Chloride ABG Glucose Oxyhemoglobin Carboxyhemoglobin Sodium 133 L Potassium Chloride Carbon Dioxide BUN 21 H Creatinine 0.3 L Glucose 259 H POC Glucose 308 H Hemoglobin A1c Magnesium Ferritin AST ALT Alkaline Phosphatase Lactate Dehydrogenase C-Reactive Protein Total Protein Albumin 3.2 L Arterial Blood Glucose Coronavirus (PCR) 05/06/21 05/06/21 05/06/21 11:24 17:54 21:32 WBC MCV MCH MCHC RDW Lymph % (Auto) Dickson % (Auto) Eos % (Auto) Lymph # (Auto) Dickson # (Auto) Eos # (Auto) Baso # (Auto) Seg Neutrophils % Seg Neuts % (Manual) Lymphocytes % (Manual) Seg Neutrophils # Seg Neutrophils # Man Lymphocytes # (Manual) D-Dimer ABG pH POC ABG pCO2 POC ABG pO2 ABG pO2 ABG HCO3 ABG O2 Saturation ABG Base Excess ABG Oxyhemoglobin ABG Sodium ABG Chloride ABG Glucose Oxyhemoglobin Carboxyhemoglobin Sodium Potassium Chloride Carbon Dioxide BUN Creatinine Glucose POC Glucose 262 H 124 H 246 H Hemoglobin A1c Magnesium Ferritin AST ALT Alkaline Phosphatase Lactate Dehydrogenase C-Reactive Protein Total Protein Albumin Arterial Blood Glucose Coronavirus (PCR) 05/06/21 05/07/21 05/07/21 23:10 04:54 04:54 WBC MCV MCH MCHC RDW Lymph % (Auto) Dickson % (Auto) Eos % (Auto) Lymph # (Auto) Dickson # (Auto) Eos # (Auto) Baso # (Auto) Seg Neutrophils % Seg Neuts % (Manual) Lymphocytes % (Manual) Seg Neutrophils # Seg Neutrophils # Man Lymphocytes # (Manual) D-Dimer 1609.28 H ABG pH POC ABG pCO2 POC ABG pO2 ABG pO2 ABG HCO3 ABG O2 Saturation ABG Base Excess ABG Oxyhemoglobin ABG Sodium ABG Chloride ABG Glucose Oxyhemoglobin Carboxyhemoglobin Sodium 136 L Potassium Chloride Carbon Dioxide BUN 23 H Creatinine 0.3 L Glucose 110 H POC Glucose 249 H Hemoglobin A1c Magnesium Ferritin AST ALT Alkaline Phosphatase Lactate Dehydrogenase C-Reactive Protein Total Protein 6.2 L Albumin 3.0 L Arterial Blood Glucose Coronavirus (PCR) 05/07/21 05/07/21 05/07/21 04:54 04:54 11:41 WBC MCV MCH MCHC RDW Lymph % (Auto) Dickson % (Auto) Eos % (Auto) Lymph # (Auto) Dickson # (Auto) Eos # (Auto) Baso # (Auto) Seg Neutrophils % Seg Neuts % (Manual) Lymphocytes % (Manual) Seg Neutrophils # Seg Neutrophils # Man Lymphocytes # (Manual) D-Dimer ABG pH POC ABG pCO2 POC ABG pO2 ABG pO2 ABG HCO3 ABG O2 Saturation ABG Base Excess ABG Oxyhemoglobin ABG Sodium ABG Chloride ABG Glucose Oxyhemoglobin Carboxyhemoglobin Sodium Potassium Chloride Carbon Dioxide BUN Creatinine Glucose POC Glucose 118 H Hemoglobin A1c Magnesium Ferritin 296.1 H AST ALT Alkaline Phosphatase Lactate Dehydrogenase 724 H C-Reactive Protein Total Protein Albumin Arterial Blood Glucose Coronavirus (PCR) 05/07/21 05/07/21 05/08/21 16:43 22:34 06:44 WBC MCV MCH MCHC RDW Lymph % (Auto) Dickson % (Auto) Eos % (Auto) Lymph # (Auto) Dickson # (Auto) Eos # (Auto) Baso # (Auto) Seg Neutrophils % Seg Neuts % (Manual) Lymphocytes % (Manual) Seg Neutrophils # Seg Neutrophils # Man Lymphocytes # (Manual) D-Dimer ABG pH POC ABG pCO2 POC ABG pO2 ABG pO2 ABG HCO3 ABG O2 Saturation ABG Base Excess ABG Oxyhemoglobin ABG Sodium ABG Chloride ABG Glucose Oxyhemoglobin Carboxyhemoglobin Sodium Potassium Chloride Carbon Dioxide BUN Creatinine Glucose POC Glucose 159 H 233 H 235 H Hemoglobin A1c Magnesium Ferritin AST ALT Alkaline Phosphatase Lactate Dehydrogenase C-Reactive Protein Total Protein Albumin Arterial Blood Glucose Coronavirus (PCR) 05/08/21 05/08/21 05/08/21 07:49 11:56 17:13 WBC MCV MCH MCHC RDW Lymph % (Auto) Dickson % (Auto) Eos % (Auto) Lymph # (Auto) Dickson # (Auto) Eos # (Auto) Baso # (Auto) Seg Neutrophils % Seg Neuts % (Manual) Lymphocytes % (Manual) Seg Neutrophils # Seg Neutrophils # Man Lymphocytes # (Manual) D-Dimer ABG pH POC ABG pCO2 POC ABG pO2 ABG pO2 ABG HCO3 ABG O2 Saturation ABG Base Excess ABG Oxyhemoglobin ABG Sodium ABG Chloride ABG Glucose Oxyhemoglobin Carboxyhemoglobin Sodium Potassium Chloride Carbon Dioxide BUN Creatinine Glucose POC Glucose 219 H 184 H 182 H Hemoglobin A1c Magnesium Ferritin AST ALT Alkaline Phosphatase Lactate Dehydrogenase C-Reactive Protein Total Protein Albumin Arterial Blood Glucose Coronavirus (PCR) 05/08/21 05/09/21 05/09/21 23:35 05:20 05:20 WBC MCV MCH MCHC RDW Lymph % (Auto) Dickson % (Auto) Eos % (Auto) Lymph # (Auto) Dickson # (Auto) Eos # (Auto) Baso # (Auto) Seg Neutrophils % Seg Neuts % (Manual) Lymphocytes % (Manual) Seg Neutrophils # Seg Neutrophils # Man Lymphocytes # (Manual) D-Dimer 1003.87 H ABG pH POC ABG pCO2 POC ABG pO2 ABG pO2 ABG HCO3 ABG O2 Saturation ABG Base Excess ABG Oxyhemoglobin ABG Sodium ABG Chloride ABG Glucose Oxyhemoglobin Carboxyhemoglobin Sodium Potassium Chloride Carbon Dioxide BUN Creatinine Glucose POC Glucose 198 H Hemoglobin A1c Magnesium Ferritin 378.7 H AST ALT Alkaline Phosphatase Lactate Dehydrogenase C-Reactive Protein Total Protein Albumin Arterial Blood Glucose Coronavirus (PCR) 05/09/21 05/09/21 05/09/21 05:20 06:04 12:53 WBC MCV MCH MCHC RDW Lymph % (Auto) Dickson % (Auto) Eos % (Auto) Lymph # (Auto) Dickson # (Auto) Eos # (Auto) Baso # (Auto) Seg Neutrophils % Seg Neuts % (Manual) Lymphocytes % (Manual) Seg Neutrophils # Seg Neutrophils # Man Lymphocytes # (Manual) D-Dimer ABG pH POC ABG pCO2 POC ABG pO2 ABG pO2 ABG HCO3 ABG O2 Saturation ABG Base Excess ABG Oxyhemoglobin ABG Sodium ABG Chloride ABG Glucose Oxyhemoglobin Carboxyhemoglobin Sodium Potassium Chloride Carbon Dioxide BUN Creatinine Glucose POC Glucose 159 H 180 H Hemoglobin A1c Magnesium Ferritin AST ALT Alkaline Phosphatase Lactate Dehydrogenase 558 H C-Reactive Protein 2.40 H Total Protein Albumin Arterial Blood Glucose Coronavirus (PCR) 05/09/21 05/09/21 05/10/21 16:43 21:27 10:18 WBC MCV MCH MCHC RDW Lymph % (Auto) Dickson % (Auto) Eos % (Auto) Lymph # (Auto) Dickson # (Auto) Eos # (Auto) Baso # (Auto) Seg Neutrophils % Seg Neuts % (Manual) Lymphocytes % (Manual) Seg Neutrophils # Seg Neutrophils # Man Lymphocytes # (Manual) D-Dimer ABG pH POC ABG pCO2 POC ABG pO2 ABG pO2 ABG HCO3 ABG O2 Saturation ABG Base Excess ABG Oxyhemoglobin ABG Sodium ABG Chloride ABG Glucose Oxyhemoglobin Carboxyhemoglobin Sodium Potassium Chloride Carbon Dioxide BUN Creatinine Glucose POC Glucose 212 H 285 H 261 H Hemoglobin A1c Magnesium Ferritin AST ALT Alkaline Phosphatase Lactate Dehydrogenase C-Reactive Protein Total Protein Albumin Arterial Blood Glucose Coronavirus (PCR) 05/10/21 05/10/21 05/11/21 17:58 18:02 00:29 WBC MCV MCH MCHC RDW Lymph % (Auto) Dickson % (Auto) Eos % (Auto) Lymph # (Auto) Dickson # (Auto) Eos # (Auto) Baso # (Auto) Seg Neutrophils % Seg Neuts % (Manual) Lymphocytes % (Manual) Seg Neutrophils # Seg Neutrophils # Man Lymphocytes # (Manual) D-Dimer ABG pH POC ABG pCO2 POC ABG pO2 ABG pO2 ABG HCO3 ABG O2 Saturation ABG Base Excess ABG Oxyhemoglobin ABG Sodium ABG Chloride ABG Glucose Oxyhemoglobin Carboxyhemoglobin Sodium Potassium Chloride Carbon Dioxide BUN Creatinine Glucose POC Glucose 213 H 179 H 149 H Hemoglobin A1c Magnesium Ferritin AST ALT Alkaline Phosphatase Lactate Dehydrogenase C-Reactive Protein Total Protein Albumin Arterial Blood Glucose Coronavirus (PCR) 05/11/21 05/11/21 05/11/21 05:22 11:32 17:00 WBC 14.9 H MCV MCH MCHC RDW 18.9 H Lymph % (Auto) 4.9 L Dickson % (Auto) Eos % (Auto) Lymph # (Auto) 0.7 L Dickson # (Auto) Eos # (Auto) Baso # (Auto) 0.2 H Seg Neutrophils % Seg Neuts % (Manual) Lymphocytes % (Manual) Seg Neutrophils # 13.3 H Seg Neutrophils # Man Lymphocytes # (Manual) D-Dimer ABG pH POC ABG pCO2 POC ABG pO2 ABG pO2 ABG HCO3 ABG O2 Saturation ABG Base Excess ABG Oxyhemoglobin ABG Sodium ABG Chloride ABG Glucose Oxyhemoglobin Carboxyhemoglobin Sodium Potassium Chloride Carbon Dioxide BUN Creatinine Glucose POC Glucose 162 H 179 H Hemoglobin A1c Magnesium Ferritin AST ALT Alkaline Phosphatase Lactate Dehydrogenase C-Reactive Protein Total Protein Albumin Arterial Blood Glucose Coronavirus (PCR) 05/11/21 05/11/21 05/11/21 17:00 17:33 22:03 WBC MCV MCH MCHC RDW Lymph % (Auto) Dickson % (Auto) Eos % (Auto) Lymph # (Auto) Dickson # (Auto) Eos # (Auto) Baso # (Auto) Seg Neutrophils % Seg Neuts % (Manual) Lymphocytes % (Manual) Seg Neutrophils # Seg Neutrophils # Man Lymphocytes # (Manual) D-Dimer ABG pH POC ABG pCO2 POC ABG pO2 ABG pO2 ABG HCO3 ABG O2 Saturation ABG Base Excess ABG Oxyhemoglobin ABG Sodium ABG Chloride ABG Glucose Oxyhemoglobin Carboxyhemoglobin Sodium 135 L Potassium Chloride 97.3 L Carbon Dioxide BUN 21 H Creatinine 0.3 L Glucose 133 H POC Glucose 140 H 282 H Hemoglobin A1c Magnesium Ferritin AST ALT 60 H Alkaline Phosphatase Lactate Dehydrogenase C-Reactive Protein Total Protein Albumin 3.1 L Arterial Blood Glucose Coronavirus (PCR) 05/12/21 05/12/21 05/12/21 04:05 04:05 04:05 WBC MCV MCH MCHC RDW 18.4 H Lymph % (Auto) Dickson % (Auto) Eos % (Auto) Lymph # (Auto) Dickson # (Auto) Eos # (Auto) Baso # (Auto) Seg Neutrophils % Seg Neuts % (Manual) 94.0 H Lymphocytes % (Manual) 4.0 L Seg Neutrophils # Seg Neutrophils # Man Lymphocytes # (Manual) 0.3 L D-Dimer ABG pH POC ABG pCO2 POC ABG pO2 ABG pO2 ABG HCO3 ABG O2 Saturation ABG Base Excess ABG Oxyhemoglobin ABG Sodium ABG Chloride ABG Glucose Oxyhemoglobin Carboxyhemoglobin Sodium 136 L Potassium Chloride Carbon Dioxide BUN 18 H Creatinine 0.2 L Glucose 142 H POC Glucose Hemoglobin A1c Magnesium Ferritin 350.7 H AST ALT Alkaline Phosphatase Lactate Dehydrogenase 546 H C-Reactive Protein Total Protein 6.1 L Albumin 3.0 L Arterial Blood Glucose Coronavirus (PCR) 05/12/21 05/12/21 05/12/21 05:11 11:17 16:27 WBC MCV MCH MCHC RDW Lymph % (Auto) Dickson % (Auto) Eos % (Auto) Lymph # (Auto) Dickson # (Auto) Eos # (Auto) Baso # (Auto) Seg Neutrophils % Seg Neuts % (Manual) Lymphocytes % (Manual) Seg Neutrophils # Seg Neutrophils # Man Lymphocytes # (Manual) D-Dimer ABG pH POC ABG pCO2 POC ABG pO2 ABG pO2 ABG HCO3 ABG O2 Saturation ABG Base Excess ABG Oxyhemoglobin ABG Sodium ABG Chloride ABG Glucose Oxyhemoglobin Carboxyhemoglobin Sodium Potassium Chloride Carbon Dioxide BUN Creatinine Glucose POC Glucose 152 H 190 H 261 H Hemoglobin A1c Magnesium Ferritin AST ALT Alkaline Phosphatase Lactate Dehydrogenase C-Reactive Protein Total Protein Albumin Arterial Blood Glucose Coronavirus (PCR) 05/12/21 05/13/21 05/13/21 20:55 11:08 21:41 WBC MCV MCH MCHC RDW Lymph % (Auto) Dickson % (Auto) Eos % (Auto) Lymph # (Auto) Dickson # (Auto) Eos # (Auto) Baso # (Auto) Seg Neutrophils % Seg Neuts % (Manual) Lymphocytes % (Manual) Seg Neutrophils # Seg Neutrophils # Man Lymphocytes # (Manual) D-Dimer ABG pH POC ABG pCO2 POC ABG pO2 ABG pO2 ABG HCO3 ABG O2 Saturation ABG Base Excess ABG Oxyhemoglobin ABG Sodium ABG Chloride ABG Glucose Oxyhemoglobin Carboxyhemoglobin Sodium Potassium Chloride Carbon Dioxide BUN Creatinine Glucose POC Glucose 231 H 106 H 174 H Hemoglobin A1c Magnesium Ferritin AST ALT Alkaline Phosphatase Lactate Dehydrogenase C-Reactive Protein Total Protein Albumin Arterial Blood Glucose Coronavirus (PCR) 05/14/21 05/14/21 05/14/21 00:53 02:23 06:06 WBC MCV MCH MCHC RDW Lymph % (Auto) Dickson % (Auto) Eos % (Auto) Lymph # (Auto) Dickson # (Auto) Eos # (Auto) Baso # (Auto) Seg Neutrophils % Seg Neuts % (Manual) Lymphocytes % (Manual) Seg Neutrophils # Seg Neutrophils # Man Lymphocytes # (Manual) D-Dimer ABG pH POC ABG pCO2 POC ABG pO2 ABG pO2 130.3 H ABG HCO3 30.6 H ABG O2 Saturation ABG Base Excess 4.9 H ABG Oxyhemoglobin ABG Sodium ABG Chloride ABG Glucose Oxyhemoglobin Carboxyhemoglobin Sodium Potassium Chloride Carbon Dioxide BUN Creatinine Glucose POC Glucose 229 H 119 H Hemoglobin A1c Magnesium Ferritin AST ALT Alkaline Phosphatase Lactate Dehydrogenase C-Reactive Protein Total Protein Albumin Arterial Blood Glucose Coronavirus (PCR) 08/05/14/21 05/14/21 07:13 07:13 07:13 WBC MCV MCH MCHC RDW Lymph % (Auto) Dickson % (Auto) Eos % (Auto) Lymph # (Auto) Dickson # (Auto) Eos # (Auto) Baso # (Auto) Seg Neutrophils % Seg Neuts % (Manual) Lymphocytes % (Manual) Seg Neutrophils # Seg Neutrophils # Man Lymphocytes # (Manual) D-Dimer 712.80 H ABG pH POC ABG pCO2 POC ABG pO2 ABG pO2 ABG HCO3 ABG O2 Saturation ABG Base Excess ABG Oxyhemoglobin ABG Sodium ABG Chloride ABG Glucose Oxyhemoglobin Carboxyhemoglobin Sodium 133 L Potassium Chloride 95.5 L Carbon Dioxide 32 H BUN Creatinine 0.2 L Glucose 137 H POC Glucose Hemoglobin A1c Magnesium Ferritin 283.5 H AST ALT 63 H Alkaline Phosphatase Lactate Dehydrogenase 563 H C-Reactive Protein Total Protein 6.1 L Albumin 3.0 L Arterial Blood Glucose Coronavirus (PCR) 05/14/21 05/14/21 05/14/21 12:21 15:33 21:50 WBC MCV MCH MCHC RDW Lymph % (Auto) Dickson % (Auto) Eos % (Auto) Lymph # (Auto) Dickson # (Auto) Eos # (Auto) Baso # (Auto) Seg Neutrophils % Seg Neuts % (Manual) Lymphocytes % (Manual) Seg Neutrophils # Seg Neutrophils # Man Lymphocytes # (Manual) D-Dimer ABG pH POC ABG pCO2 POC ABG pO2 ABG pO2 ABG HCO3 ABG O2 Saturation ABG Base Excess ABG Oxyhemoglobin ABG Sodium ABG Chloride ABG Glucose Oxyhemoglobin Carboxyhemoglobin Sodium Potassium Chloride Carbon Dioxide BUN Creatinine Glucose POC Glucose 143 H 204 H 202 H Hemoglobin A1c Magnesium Ferritin AST ALT Alkaline Phosphatase Lactate Dehydrogenase C-Reactive Protein Total Protein Albumin Arterial Blood Glucose Coronavirus (PCR) 05/15/21 05/15/21 05/15/21 05:05 11:12 16:39 WBC MCV MCH MCHC RDW Lymph % (Auto) Dickson % (Auto) Eos % (Auto) Lymph # (Auto) Dickson # (Auto) Eos # (Auto) Baso # (Auto) Seg Neutrophils % Seg Neuts % (Manual) Lymphocytes % (Manual) Seg Neutrophils # Seg Neutrophils # Man Lymphocytes # (Manual) D-Dimer ABG pH POC ABG pCO2 POC ABG pO2 ABG pO2 ABG HCO3 ABG O2 Saturation ABG Base Excess ABG Oxyhemoglobin ABG Sodium ABG Chloride ABG Glucose Oxyhemoglobin Carboxyhemoglobin Sodium Potassium Chloride Carbon Dioxide BUN Creatinine Glucose POC Glucose 125 H 201 H 241 H Hemoglobin A1c Magnesium Ferritin AST ALT Alkaline Phosphatase Lactate Dehydrogenase C-Reactive Protein Total Protein Albumin Arterial Blood Glucose Coronavirus (PCR) 05/15/21 05/16/21 05/16/21 21:31 05:04 10:40 WBC MCV MCH MCHC RDW Lymph % (Auto) Dickson % (Auto) Eos % (Auto) Lymph # (Auto) Dickson # (Auto) Eos # (Auto) Baso # (Auto) Seg Neutrophils % Seg Neuts % (Manual) Lymphocytes % (Manual) Seg Neutrophils # Seg Neutrophils # Man Lymphocytes # (Manual) D-Dimer ABG pH POC ABG pCO2 POC ABG pO2 ABG pO2 ABG HCO3 ABG O2 Saturation ABG Base Excess ABG Oxyhemoglobin ABG Sodium ABG Chloride ABG Glucose Oxyhemoglobin Carboxyhemoglobin Sodium Potassium Chloride Carbon Dioxide BUN Creatinine Glucose POC Glucose 234 H 123 H 231 H Hemoglobin A1c Magnesium Ferritin AST ALT Alkaline Phosphatase Lactate Dehydrogenase C-Reactive Protein Total Protein Albumin Arterial Blood Glucose Coronavirus (PCR) 05/16/21 05/16/21 05/17/21 18:23 21:29 06:20 WBC MCV MCH MCHC RDW 18.8 H Lymph % (Auto) 10.2 L Dickson % (Auto) Eos % (Auto) Lymph # (Auto) 0.8 L Dickson # (Auto) Eos # (Auto) Baso # (Auto) Seg Neutrophils % 85.8 H Seg Neuts % (Manual) Lymphocytes % (Manual) Seg Neutrophils # Seg Neutrophils # Man Lymphocytes # (Manual) D-Dimer ABG pH POC ABG pCO2 POC ABG pO2 ABG pO2 ABG HCO3 ABG O2 Saturation ABG Base Excess ABG Oxyhemoglobin ABG Sodium ABG Chloride ABG Glucose Oxyhemoglobin Carboxyhemoglobin Sodium Potassium Chloride Carbon Dioxide BUN Creatinine Glucose POC Glucose 266 H 234 H Hemoglobin A1c Magnesium Ferritin AST ALT Alkaline Phosphatase Lactate Dehydrogenase C-Reactive Protein Total Protein Albumin Arterial Blood Glucose Coronavirus (PCR) 05/17/21 05/17/21 05/17/21 06:20 11:06 16:36 WBC MCV MCH MCHC RDW Lymph % (Auto) Dickson % (Auto) Eos % (Auto) Lymph # (Auto) Dickson # (Auto) Eos # (Auto) Baso # (Auto) Seg Neutrophils % Seg Neuts % (Manual) Lymphocytes % (Manual) Seg Neutrophils # Seg Neutrophils # Man Lymphocytes # (Manual) D-Dimer ABG pH POC ABG pCO2 POC ABG pO2 ABG pO2 ABG HCO3 ABG O2 Saturation ABG Base Excess ABG Oxyhemoglobin ABG Sodium ABG Chloride ABG Glucose Oxyhemoglobin Carboxyhemoglobin Sodium Potassium Chloride Carbon Dioxide 33 H BUN Creatinine 0.2 L Glucose 101 H POC Glucose 209 H 180 H Hemoglobin A1c Magnesium Ferritin AST ALT Alkaline Phosphatase Lactate Dehydrogenase C-Reactive Protein Total Protein Albumin Arterial Blood Glucose Coronavirus (PCR) 05/17/21 05/18/21 05/18/21 21:06 12:00 15:06 WBC MCV MCH MCHC RDW Lymph % (Auto) Dickson % (Auto) Eos % (Auto) Lymph # (Auto) Dickson # (Auto) Eos # (Auto) Baso # (Auto) Seg Neutrophils % Seg Neuts % (Manual) Lymphocytes % (Manual) Seg Neutrophils # Seg Neutrophils # Man Lymphocytes # (Manual) D-Dimer 874.02 H ABG pH POC ABG pCO2 POC ABG pO2 ABG pO2 ABG HCO3 ABG O2 Saturation ABG Base Excess ABG Oxyhemoglobin ABG Sodium ABG Chloride ABG Glucose Oxyhemoglobin Carboxyhemoglobin Sodium Potassium Chloride Carbon Dioxide BUN Creatinine Glucose POC Glucose 256 H 139 H Hemoglobin A1c Magnesium Ferritin AST ALT Alkaline Phosphatase Lactate Dehydrogenase C-Reactive Protein Total Protein Albumin Arterial Blood Glucose Coronavirus (PCR) 05/18/21 05/18/21 05/18/21 15:06 15:06 16:08 WBC MCV MCH MCHC RDW Lymph % (Auto) Dickson % (Auto) Eos % (Auto) Lymph # (Auto) Dickson # (Auto) Eos # (Auto) Baso # (Auto) Seg Neutrophils % Seg Neuts % (Manual) Lymphocytes % (Manual) Seg Neutrophils # Seg Neutrophils # Man Lymphocytes # (Manual) D-Dimer ABG pH POC ABG pCO2 POC ABG pO2 ABG pO2 ABG HCO3 ABG O2 Saturation ABG Base Excess ABG Oxyhemoglobin ABG Sodium ABG Chloride ABG Glucose Oxyhemoglobin Carboxyhemoglobin Sodium Potassium Chloride Carbon Dioxide BUN Creatinine Glucose POC Glucose 178 H Hemoglobin A1c Magnesium Ferritin 289.6 H AST ALT Alkaline Phosphatase Lactate Dehydrogenase 605 H C-Reactive Protein Total Protein Albumin Arterial Blood Glucose Coronavirus (PCR) 05/18/21 05/19/21 05/19/21 21:22 11:57 15:26 WBC MCV MCH MCHC RDW Lymph % (Auto) Dickson % (Auto) Eos % (Auto) Lymph # (Auto) Dickson # (Auto) Eos # (Auto) Baso # (Auto) Seg Neutrophils % Seg Neuts % (Manual) Lymphocytes % (Manual) Seg Neutrophils # Seg Neutrophils # Man Lymphocytes # (Manual) D-Dimer ABG pH POC ABG pCO2 POC ABG pO2 ABG pO2 ABG HCO3 ABG O2 Saturation ABG Base Excess ABG Oxyhemoglobin ABG Sodium ABG Chloride ABG Glucose Oxyhemoglobin Carboxyhemoglobin Sodium Potassium Chloride Carbon Dioxide BUN Creatinine Glucose POC Glucose 241 H 201 H 209 H Hemoglobin A1c Magnesium Ferritin AST ALT Alkaline Phosphatase Lactate Dehydrogenase C-Reactive Protein Total Protein Albumin Arterial Blood Glucose Coronavirus (PCR) 05/19/21 05/20/21 05/20/21 20:59 07:38 08:01 WBC MCV MCH MCHC RDW 19.7 H Lymph % (Auto) 8.3 L Dickson % (Auto) Eos % (Auto) Lymph # (Auto) 0.8 L Dickson # (Auto) Eos # (Auto) Baso # (Auto) Seg Neutrophils % 88.6 H Seg Neuts % (Manual) Lymphocytes % (Manual) Seg Neutrophils # 8.4 H Seg Neutrophils # Man Lymphocytes # (Manual) D-Dimer ABG pH POC ABG pCO2 POC ABG pO2 ABG pO2 ABG HCO3 ABG O2 Saturation ABG Base Excess ABG Oxyhemoglobin ABG Sodium ABG Chloride ABG Glucose Oxyhemoglobin Carboxyhemoglobin Sodium Potassium Chloride Carbon Dioxide BUN Creatinine Glucose POC Glucose 226 H 130 H Hemoglobin A1c Magnesium Ferritin AST ALT Alkaline Phosphatase Lactate Dehydrogenase C-Reactive Protein Total Protein Albumin Arterial Blood Glucose Coronavirus (PCR) 05/20/21 05/20/21 05/20/21 08:01 11:00 16:43 WBC MCV MCH MCHC RDW Lymph % (Auto) Dickson % (Auto) Eos % (Auto) Lymph # (Auto) Dickson # (Auto) Eos # (Auto) Baso # (Auto) Seg Neutrophils % Seg Neuts % (Manual) Lymphocytes % (Manual) Seg Neutrophils # Seg Neutrophils # Man Lymphocytes # (Manual) D-Dimer ABG pH POC ABG pCO2 POC ABG pO2 ABG pO2 ABG HCO3 ABG O2 Saturation ABG Base Excess ABG Oxyhemoglobin ABG Sodium ABG Chloride ABG Glucose Oxyhemoglobin Carboxyhemoglobin Sodium Potassium Chloride Carbon Dioxide BUN 18 H Creatinine 0.2 L Glucose 132 H POC Glucose 237 H 240 H Hemoglobin A1c Magnesium Ferritin AST ALT Alkaline Phosphatase Lactate Dehydrogenase C-Reactive Protein Total Protein Albumin Arterial Blood Glucose Coronavirus (PCR) 05/20/21 05/21/21 05/21/21 21:21 07:35 11:32 WBC MCV MCH MCHC RDW Lymph % (Auto) Dickson % (Auto) Eos % (Auto) Lymph # (Auto) Dickson # (Auto) Eos # (Auto) Baso # (Auto) Seg Neutrophils % Seg Neuts % (Manual) Lymphocytes % (Manual) Seg Neutrophils # Seg Neutrophils # Man Lymphocytes # (Manual) D-Dimer ABG pH POC ABG pCO2 POC ABG pO2 ABG pO2 ABG HCO3 ABG O2 Saturation ABG Base Excess ABG Oxyhemoglobin ABG Sodium ABG Chloride ABG Glucose Oxyhemoglobin Carboxyhemoglobin Sodium Potassium Chloride Carbon Dioxide BUN Creatinine Glucose POC Glucose 241 H 162 H 171 H Hemoglobin A1c Magnesium Ferritin AST ALT Alkaline Phosphatase Lactate Dehydrogenase C-Reactive Protein Total Protein Albumin Arterial Blood Glucose Coronavirus (PCR) 05/21/21 05/21/21 05/22/21 16:22 20:43 05:14 WBC MCV MCH MCHC RDW Lymph % (Auto) Dickson % (Auto) Eos % (Auto) Lymph # (Auto) Dickson # (Auto) Eos # (Auto) Baso # (Auto) Seg Neutrophils % Seg Neuts % (Manual) Lymphocytes % (Manual) Seg Neutrophils # Seg Neutrophils # Man Lymphocytes # (Manual) D-Dimer ABG pH POC ABG pCO2 POC ABG pO2 ABG pO2 ABG HCO3 ABG O2 Saturation ABG Base Excess ABG Oxyhemoglobin ABG Sodium ABG Chloride ABG Glucose Oxyhemoglobin Carboxyhemoglobin Sodium Potassium Chloride Carbon Dioxide BUN Creatinine Glucose POC Glucose 244 H 299 H 140 H Hemoglobin A1c Magnesium Ferritin AST ALT Alkaline Phosphatase Lactate Dehydrogenase C-Reactive Protein Total Protein Albumin Arterial Blood Glucose Coronavirus (PCR) 05/22/21 05/22/21 05/22/21 08:45 11:54 16:15 WBC MCV MCH MCHC RDW Lymph % (Auto) Dickson % (Auto) Eos % (Auto) Lymph # (Auto) Dickson # (Auto) Eos # (Auto) Baso # (Auto) Seg Neutrophils % Seg Neuts % (Manual) Lymphocytes % (Manual) Seg Neutrophils # Seg Neutrophils # Man Lymphocytes # (Manual) D-Dimer ABG pH POC ABG pCO2 POC ABG pO2 ABG pO2 ABG HCO3 ABG O2 Saturation ABG Base Excess ABG Oxyhemoglobin ABG Sodium ABG Chloride ABG Glucose Oxyhemoglobin Carboxyhemoglobin Sodium Potassium Chloride Carbon Dioxide BUN Creatinine Glucose POC Glucose 133 H 265 H 221 H Hemoglobin A1c Magnesium Ferritin AST ALT Alkaline Phosphatase Lactate Dehydrogenase C-Reactive Protein Total Protein Albumin Arterial Blood Glucose Coronavirus (PCR) 05/22/21 05/23/21 05/23/21 21:43 08:20 09:50 WBC MCV MCH MCHC RDW Lymph % (Auto) Dickson % (Auto) Eos % (Auto) Lymph # (Auto) Dickson # (Auto) Eos # (Auto) Baso # (Auto) Seg Neutrophils % Seg Neuts % (Manual) Lymphocytes % (Manual) Seg Neutrophils # Seg Neutrophils # Man Lymphocytes # (Manual) D-Dimer 910.38 H ABG pH POC ABG pCO2 POC ABG pO2 ABG pO2 ABG HCO3 ABG O2 Saturation ABG Base Excess ABG Oxyhemoglobin ABG Sodium ABG Chloride ABG Glucose Oxyhemoglobin Carboxyhemoglobin Sodium Potassium Chloride Carbon Dioxide BUN Creatinine Glucose POC Glucose 262 H 140 H Hemoglobin A1c Magnesium Ferritin AST ALT Alkaline Phosphatase Lactate Dehydrogenase C-Reactive Protein Total Protein Albumin Arterial Blood Glucose Coronavirus (PCR) 05/23/21 05/23/21 05/23/21 09:50 09:50 10:52 WBC MCV MCH MCHC RDW Lymph % (Auto) Dickson % (Auto) Eos % (Auto) Lymph # (Auto) Dickson # (Auto) Eos # (Auto) Baso # (Auto) Seg Neutrophils % Seg Neuts % (Manual) Lymphocytes % (Manual) Seg Neutrophils # Seg Neutrophils # Man Lymphocytes # (Manual) D-Dimer ABG pH POC ABG pCO2 POC ABG pO2 ABG pO2 ABG HCO3 ABG O2 Saturation ABG Base Excess ABG Oxyhemoglobin ABG Sodium ABG Chloride ABG Glucose Oxyhemoglobin Carboxyhemoglobin Sodium Potassium Chloride Carbon Dioxide BUN Creatinine Glucose POC Glucose 241 H Hemoglobin A1c Magnesium Ferritin 244.9 H AST ALT Alkaline Phosphatase Lactate Dehydrogenase 584 H C-Reactive Protein Total Protein Albumin Arterial Blood Glucose Coronavirus (PCR) 05/23/21 05/23/21 05/24/21 17:24 21:52 07:44 WBC MCV MCH MCHC RDW Lymph % (Auto) Dickson % (Auto) Eos % (Auto) Lymph # (Auto) Dickson # (Auto) Eos # (Auto) Baso # (Auto) Seg Neutrophils % Seg Neuts % (Manual) Lymphocytes % (Manual) Seg Neutrophils # Seg Neutrophils # Man Lymphocytes # (Manual) D-Dimer ABG pH POC ABG pCO2 POC ABG pO2 ABG pO2 ABG HCO3 ABG O2 Saturation ABG Base Excess ABG Oxyhemoglobin ABG Sodium ABG Chloride ABG Glucose Oxyhemoglobin Carboxyhemoglobin Sodium Potassium Chloride Carbon Dioxide BUN Creatinine Glucose POC Glucose 197 H 289 H 161 H Hemoglobin A1c Magnesium Ferritin AST ALT Alkaline Phosphatase Lactate Dehydrogenase C-Reactive Protein Total Protein Albumin Arterial Blood Glucose Coronavirus (PCR) 05/24/21 05/24/21 05/24/21 11:17 17:51 21:26 WBC MCV MCH MCHC RDW Lymph % (Auto) Dickson % (Auto) Eos % (Auto) Lymph # (Auto) Dickson # (Auto) Eos # (Auto) Baso # (Auto) Seg Neutrophils % Seg Neuts % (Manual) Lymphocytes % (Manual) Seg Neutrophils # Seg Neutrophils # Man Lymphocytes # (Manual) D-Dimer ABG pH POC ABG pCO2 POC ABG pO2 ABG pO2 ABG HCO3 ABG O2 Saturation ABG Base Excess ABG Oxyhemoglobin ABG Sodium ABG Chloride ABG Glucose Oxyhemoglobin Carboxyhemoglobin Sodium Potassium Chloride Carbon Dioxide BUN Creatinine Glucose POC Glucose 308 H 175 H 198 H Hemoglobin A1c Magnesium Ferritin AST ALT Alkaline Phosphatase Lactate Dehydrogenase C-Reactive Protein Total Protein Albumin Arterial Blood Glucose Coronavirus (PCR) 05/25/21 05/25/21 05/25/21 08:14 11:13 17:13 WBC MCV MCH MCHC RDW Lymph % (Auto) Dickson % (Auto) Eos % (Auto) Lymph # (Auto) Dickson # (Auto) Eos # (Auto) Baso # (Auto) Seg Neutrophils % Seg Neuts % (Manual) Lymphocytes % (Manual) Seg Neutrophils # Seg Neutrophils # Man Lymphocytes # (Manual) D-Dimer ABG pH POC ABG pCO2 POC ABG pO2 ABG pO2 ABG HCO3 ABG O2 Saturation ABG Base Excess ABG Oxyhemoglobin ABG Sodium ABG Chloride ABG Glucose Oxyhemoglobin Carboxyhemoglobin Sodium Potassium Chloride Carbon Dioxide BUN Creatinine Glucose POC Glucose 203 H 339 H 235 H Hemoglobin A1c Magnesium Ferritin AST ALT Alkaline Phosphatase Lactate Dehydrogenase C-Reactive Protein Total Protein Albumin Arterial Blood Glucose Coronavirus (PCR) 05/25/21 05/26/21 05/26/21 21:03 07:33 11:19 WBC MCV MCH MCHC RDW Lymph % (Auto) Dickson % (Auto) Eos % (Auto) Lymph # (Auto) Dickson # (Auto) Eos # (Auto) Baso # (Auto) Seg Neutrophils % Seg Neuts % (Manual) Lymphocytes % (Manual) Seg Neutrophils # Seg Neutrophils # Man Lymphocytes # (Manual) D-Dimer ABG pH POC ABG pCO2 POC ABG pO2 ABG pO2 ABG HCO3 ABG O2 Saturation ABG Base Excess ABG Oxyhemoglobin ABG Sodium ABG Chloride ABG Glucose Oxyhemoglobin Carboxyhemoglobin Sodium Potassium Chloride Carbon Dioxide BUN Creatinine Glucose POC Glucose 263 H 156 H 288 H Hemoglobin A1c Magnesium Ferritin AST ALT Alkaline Phosphatase Lactate Dehydrogenase C-Reactive Protein Total Protein Albumin Arterial Blood Glucose Coronavirus (PCR) 05/26/21 05/26/21 05/27/21 16:26 20:55 07:38 WBC MCV MCH MCHC RDW Lymph % (Auto) Dickson % (Auto) Eos % (Auto) Lymph # (Auto) Dickson # (Auto) Eos # (Auto) Baso # (Auto) Seg Neutrophils % Seg Neuts % (Manual) Lymphocytes % (Manual) Seg Neutrophils # Seg Neutrophils # Man Lymphocytes # (Manual) D-Dimer ABG pH POC ABG pCO2 POC ABG pO2 ABG pO2 ABG HCO3 ABG O2 Saturation ABG Base Excess ABG Oxyhemoglobin ABG Sodium ABG Chloride ABG Glucose Oxyhemoglobin Carboxyhemoglobin Sodium Potassium Chloride Carbon Dioxide BUN Creatinine Glucose POC Glucose 286 H 293 H 115 H Hemoglobin A1c Magnesium Ferritin AST ALT Alkaline Phosphatase Lactate Dehydrogenase C-Reactive Protein Total Protein Albumin Arterial Blood Glucose Coronavirus (PCR) 05/27/21 05/27/21 05/27/21 11:46 15:58 21:02 WBC MCV MCH MCHC RDW Lymph % (Auto) Dickson % (Auto) Eos % (Auto) Lymph # (Auto) Dickson # (Auto) Eos # (Auto) Baso # (Auto) Seg Neutrophils % Seg Neuts % (Manual) Lymphocytes % (Manual) Seg Neutrophils # Seg Neutrophils # Man Lymphocytes # (Manual) D-Dimer ABG pH POC ABG pCO2 POC ABG pO2 ABG pO2 ABG HCO3 ABG O2 Saturation ABG Base Excess ABG Oxyhemoglobin ABG Sodium ABG Chloride ABG Glucose Oxyhemoglobin Carboxyhemoglobin Sodium Potassium Chloride Carbon Dioxide BUN Creatinine Glucose POC Glucose 260 H 318 H 246 H Hemoglobin A1c Magnesium Ferritin AST ALT Alkaline Phosphatase Lactate Dehydrogenase C-Reactive Protein Total Protein Albumin Arterial Blood Glucose Coronavirus (PCR) 05/28/21 05/28/21 05/28/21 07:34 11:31 16:36 WBC MCV MCH MCHC RDW Lymph % (Auto) Dickson % (Auto) Eos % (Auto) Lymph # (Auto) Dickson # (Auto) Eos # (Auto) Baso # (Auto) Seg Neutrophils % Seg Neuts % (Manual) Lymphocytes % (Manual) Seg Neutrophils # Seg Neutrophils # Man Lymphocytes # (Manual) D-Dimer ABG pH POC ABG pCO2 POC ABG pO2 ABG pO2 ABG HCO3 ABG O2 Saturation ABG Base Excess ABG Oxyhemoglobin ABG Sodium ABG Chloride ABG Glucose Oxyhemoglobin Carboxyhemoglobin Sodium Potassium Chloride Carbon Dioxide BUN Creatinine Glucose POC Glucose 185 H 297 H 183 H Hemoglobin A1c Magnesium Ferritin AST ALT Alkaline Phosphatase Lactate Dehydrogenase C-Reactive Protein Total Protein Albumin Arterial Blood Glucose Coronavirus (PCR) 05/28/21 05/29/21 05/29/21 21:19 07:34 11:19 WBC MCV MCH MCHC RDW Lymph % (Auto) Dickson % (Auto) Eos % (Auto) Lymph # (Auto) Dickson # (Auto) Eos # (Auto) Baso # (Auto) Seg Neutrophils % Seg Neuts % (Manual) Lymphocytes % (Manual) Seg Neutrophils # Seg Neutrophils # Man Lymphocytes # (Manual) D-Dimer ABG pH POC ABG pCO2 POC ABG pO2 ABG pO2 ABG HCO3 ABG O2 Saturation ABG Base Excess ABG Oxyhemoglobin ABG Sodium ABG Chloride ABG Glucose Oxyhemoglobin Carboxyhemoglobin Sodium Potassium Chloride Carbon Dioxide BUN Creatinine Glucose POC Glucose 274 H 139 H 293 H Hemoglobin A1c Magnesium Ferritin AST ALT Alkaline Phosphatase Lactate Dehydrogenase C-Reactive Protein Total Protein Albumin Arterial Blood Glucose Coronavirus (PCR) 05/29/21 05/29/21 05/30/21 16:36 22:44 05:55 WBC MCV MCH MCHC RDW 21.3 H Lymph % (Auto) 8.0 L Dickson % (Auto) Eos % (Auto) Lymph # (Auto) 0.6 L Dickson # (Auto) Eos # (Auto) Baso # (Auto) Seg Neutrophils % 88.6 H Seg Neuts % (Manual) Lymphocytes % (Manual) Seg Neutrophils # Seg Neutrophils # Man Lymphocytes # (Manual) D-Dimer ABG pH POC ABG pCO2 POC ABG pO2 ABG pO2 ABG HCO3 ABG O2 Saturation ABG Base Excess ABG Oxyhemoglobin ABG Sodium ABG Chloride ABG Glucose Oxyhemoglobin Carboxyhemoglobin Sodium Potassium Chloride Carbon Dioxide BUN Creatinine Glucose POC Glucose 299 H 160 H Hemoglobin A1c Magnesium Ferritin AST ALT Alkaline Phosphatase Lactate Dehydrogenase C-Reactive Protein Total Protein Albumin Arterial Blood Glucose Coronavirus (PCR) 05/30/21 05/30/21 05/30/21 05:55 08:04 11:13 WBC MCV MCH MCHC RDW Lymph % (Auto) Dickson % (Auto) Eos % (Auto) Lymph # (Auto) Dickson # (Auto) Eos # (Auto) Baso # (Auto) Seg Neutrophils % Seg Neuts % (Manual) Lymphocytes % (Manual) Seg Neutrophils # Seg Neutrophils # Man Lymphocytes # (Manual) D-Dimer ABG pH POC ABG pCO2 POC ABG pO2 ABG pO2 ABG HCO3 ABG O2 Saturation ABG Base Excess ABG Oxyhemoglobin ABG Sodium ABG Chloride ABG Glucose Oxyhemoglobin Carboxyhemoglobin Sodium Potassium Chloride Carbon Dioxide BUN 19 H Creatinine 0.2 L Glucose 209 H POC Glucose 157 H 275 H Hemoglobin A1c Magnesium Ferritin AST ALT Alkaline Phosphatase Lactate Dehydrogenase C-Reactive Protein Total Protein Albumin Arterial Blood Glucose Coronavirus (PCR) 05/30/21 05/30/21 05/31/21 17:08 22:12 07:36 WBC MCV MCH MCHC RDW Lymph % (Auto) Dickson % (Auto) Eos % (Auto) Lymph # (Auto) Dickson # (Auto) Eos # (Auto) Baso # (Auto) Seg Neutrophils % Seg Neuts % (Manual) Lymphocytes % (Manual) Seg Neutrophils # Seg Neutrophils # Man Lymphocytes # (Manual) D-Dimer ABG pH POC ABG pCO2 POC ABG pO2 ABG pO2 ABG HCO3 ABG O2 Saturation ABG Base Excess ABG Oxyhemoglobin ABG Sodium ABG Chloride ABG Glucose Oxyhemoglobin Carboxyhemoglobin Sodium Potassium Chloride Carbon Dioxide BUN Creatinine Glucose POC Glucose 154 H 275 H 138 H Hemoglobin A1c Magnesium Ferritin AST ALT Alkaline Phosphatase Lactate Dehydrogenase C-Reactive Protein Total Protein Albumin Arterial Blood Glucose Coronavirus (PCR) 05/31/21 05/31/21 05/31/21 11:17 16:55 21:25 WBC MCV MCH MCHC RDW Lymph % (Auto) Dickson % (Auto) Eos % (Auto) Lymph # (Auto) Dickson # (Auto) Eos # (Auto) Baso # (Auto) Seg Neutrophils % Seg Neuts % (Manual) Lymphocytes % (Manual) Seg Neutrophils # Seg Neutrophils # Man Lymphocytes # (Manual) D-Dimer ABG pH POC ABG pCO2 POC ABG pO2 ABG pO2 ABG HCO3 ABG O2 Saturation ABG Base Excess ABG Oxyhemoglobin ABG Sodium ABG Chloride ABG Glucose Oxyhemoglobin Carboxyhemoglobin Sodium Potassium Chloride Carbon Dioxide BUN Creatinine Glucose POC Glucose 258 H 215 H 318 H Hemoglobin A1c Magnesium Ferritin AST ALT Alkaline Phosphatase Lactate Dehydrogenase C-Reactive Protein Total Protein Albumin Arterial Blood Glucose Coronavirus (PCR) 06/01/21 06/01/21 06/01/21 07:23 11:38 16:52 WBC MCV MCH MCHC RDW Lymph % (Auto) Dickson % (Auto) Eos % (Auto) Lymph # (Auto) Dickson # (Auto) Eos # (Auto) Baso # (Auto) Seg Neutrophils % Seg Neuts % (Manual) Lymphocytes % (Manual) Seg Neutrophils # Seg Neutrophils # Man Lymphocytes # (Manual) D-Dimer ABG pH POC ABG pCO2 POC ABG pO2 ABG pO2 ABG HCO3 ABG O2 Saturation ABG Base Excess ABG Oxyhemoglobin ABG Sodium ABG Chloride ABG Glucose Oxyhemoglobin Carboxyhemoglobin Sodium Potassium Chloride Carbon Dioxide BUN Creatinine Glucose POC Glucose 157 H 259 H 150 H Hemoglobin A1c Magnesium Ferritin AST ALT Alkaline Phosphatase Lactate Dehydrogenase C-Reactive Protein Total Protein Albumin Arterial Blood Glucose Coronavirus (PCR) 06/01/21 06/02/21 06/02/21 23:16 05:34 05:34 WBC MCV MCH MCHC RDW 21.3 H Lymph % (Auto) 9.6 L Dickson % (Auto) Eos % (Auto) Lymph # (Auto) 0.6 L Dickson # (Auto) Eos # (Auto) Baso # (Auto) Seg Neutrophils % 86.2 H Seg Neuts % (Manual) Lymphocytes % (Manual) Seg Neutrophils # Seg Neutrophils # Man Lymphocytes # (Manual) D-Dimer ABG pH POC ABG pCO2 POC ABG pO2 ABG pO2 ABG HCO3 ABG O2 Saturation ABG Base Excess ABG Oxyhemoglobin ABG Sodium ABG Chloride ABG Glucose Oxyhemoglobin Carboxyhemoglobin Sodium 136 L Potassium Chloride Carbon Dioxide BUN Creatinine 0.2 L Glucose 186 H POC Glucose 247 H Hemoglobin A1c Magnesium Ferritin AST ALT 69 H Alkaline Phosphatase Lactate Dehydrogenase C-Reactive Protein Total Protein 6.1 L Albumin 3.2 L Arterial Blood Glucose Coronavirus (PCR) 06/02/21 06/02/21 06/02/21 11:25 18:23 21:32 WBC MCV MCH MCHC RDW Lymph % (Auto) Dickson % (Auto) Eos % (Auto) Lymph # (Auto) Dickson # (Auto) Eos # (Auto) Baso # (Auto) Seg Neutrophils % Seg Neuts % (Manual) Lymphocytes % (Manual) Seg Neutrophils # Seg Neutrophils # Man Lymphocytes # (Manual) D-Dimer ABG pH POC ABG pCO2 POC ABG pO2 ABG pO2 ABG HCO3 ABG O2 Saturation ABG Base Excess ABG Oxyhemoglobin ABG Sodium ABG Chloride ABG Glucose Oxyhemoglobin Carboxyhemoglobin Sodium Potassium Chloride Carbon Dioxide BUN Creatinine Glucose POC Glucose 157 H 299 H 246 H Hemoglobin A1c Magnesium Ferritin AST ALT Alkaline Phosphatase Lactate Dehydrogenase C-Reactive Protein Total Protein Albumin Arterial Blood Glucose Coronavirus (PCR) 06/03/21 06/03/21 06/03/21 08:12 12:21 17:31 WBC MCV MCH MCHC RDW Lymph % (Auto) Dickson % (Auto) Eos % (Auto) Lymph # (Auto) Dickson # (Auto) Eos # (Auto) Baso # (Auto) Seg Neutrophils % Seg Neuts % (Manual) Lymphocytes % (Manual) Seg Neutrophils # Seg Neutrophils # Man Lymphocytes # (Manual) D-Dimer ABG pH POC ABG pCO2 POC ABG pO2 ABG pO2 ABG HCO3 ABG O2 Saturation ABG Base Excess ABG Oxyhemoglobin ABG Sodium ABG Chloride ABG Glucose Oxyhemoglobin Carboxyhemoglobin Sodium Potassium Chloride Carbon Dioxide BUN Creatinine Glucose POC Glucose 153 H 302 H 252 H Hemoglobin A1c Magnesium Ferritin AST ALT Alkaline Phosphatase Lactate Dehydrogenase C-Reactive Protein Total Protein Albumin Arterial Blood Glucose Coronavirus (PCR) 06/03/21 06/04/21 06/04/21 22:08 11:12 16:01 WBC MCV MCH MCHC RDW Lymph % (Auto) Dickson % (Auto) Eos % (Auto) Lymph # (Auto) Dickson # (Auto) Eos # (Auto) Baso # (Auto) Seg Neutrophils % Seg Neuts % (Manual) Lymphocytes % (Manual) Seg Neutrophils # Seg Neutrophils # Man Lymphocytes # (Manual) D-Dimer ABG pH POC ABG pCO2 POC ABG pO2 ABG pO2 ABG HCO3 ABG O2 Saturation ABG Base Excess ABG Oxyhemoglobin ABG Sodium ABG Chloride ABG Glucose Oxyhemoglobin Carboxyhemoglobin Sodium Potassium Chloride Carbon Dioxide BUN Creatinine Glucose POC Glucose 224 H 259 H 238 H Hemoglobin A1c Magnesium Ferritin AST ALT Alkaline Phosphatase Lactate Dehydrogenase C-Reactive Protein Total Protein Albumin Arterial Blood Glucose Coronavirus (PCR) 06/04/21 06/05/21 06/05/21 21:26 05:26 05:26 WBC MCV MCH MCHC RDW Lymph % (Auto) Dickson % (Auto) Eos % (Auto) Lymph # (Auto) Dickson # (Auto) Eos # (Auto) Baso # (Auto) Seg Neutrophils % Seg Neuts % (Manual) Lymphocytes % (Manual) Seg Neutrophils # Seg Neutrophils # Man Lymphocytes # (Manual) D-Dimer 488.49 H ABG pH POC ABG pCO2 POC ABG pO2 ABG pO2 ABG HCO3 ABG O2 Saturation ABG Base Excess ABG Oxyhemoglobin ABG Sodium ABG Chloride ABG Glucose Oxyhemoglobin Carboxyhemoglobin Sodium Potassium Chloride Carbon Dioxide BUN Creatinine 0.2 L Glucose 198 H POC Glucose 257 H Hemoglobin A1c Magnesium Ferritin AST ALT Alkaline Phosphatase Lactate Dehydrogenase 475 H C-Reactive Protein Total Protein Albumin Arterial Blood Glucose Coronavirus (PCR) 06/05/21 06/05/21 06/05/21 07:20 08:30 11:00 WBC MCV MCH MCHC RDW Lymph % (Auto) Dickson % (Auto) Eos % (Auto) Lymph # (Auto) Dickson # (Auto) Eos # (Auto) Baso # (Auto) Seg Neutrophils % Seg Neuts % (Manual) Lymphocytes % (Manual) Seg Neutrophils # Seg Neutrophils # Man Lymphocytes # (Manual) D-Dimer ABG pH POC ABG pCO2 POC ABG pO2 ABG pO2 ABG HCO3 ABG O2 Saturation ABG Base Excess ABG Oxyhemoglobin ABG Sodium ABG Chloride ABG Glucose Oxyhemoglobin Carboxyhemoglobin Sodium Potassium Chloride Carbon Dioxide BUN Creatinine Glucose POC Glucose 146 H 246 H Hemoglobin A1c Magnesium Ferritin AST ALT Alkaline Phosphatase Lactate Dehydrogenase C-Reactive Protein Total Protein Albumin Arterial Blood Glucose Coronavirus (PCR) Positive A 06/05/21 06/05/21 06/06/21 16:50 22:30 07:57 WBC MCV MCH MCHC RDW Lymph % (Auto) Dickson % (Auto) Eos % (Auto) Lymph # (Auto) Dickson # (Auto) Eos # (Auto) Baso # (Auto) Seg Neutrophils % Seg Neuts % (Manual) Lymphocytes % (Manual) Seg Neutrophils # Seg Neutrophils # Man Lymphocytes # (Manual) D-Dimer ABG pH POC ABG pCO2 POC ABG pO2 ABG pO2 ABG HCO3 ABG O2 Saturation ABG Base Excess ABG Oxyhemoglobin ABG Sodium ABG Chloride ABG Glucose Oxyhemoglobin Carboxyhemoglobin Sodium Potassium Chloride Carbon Dioxide BUN Creatinine Glucose POC Glucose 240 H 174 H 120 H Hemoglobin A1c Magnesium Ferritin AST ALT Alkaline Phosphatase Lactate Dehydrogenase C-Reactive Protein Total Protein Albumin Arterial Blood Glucose Coronavirus (PCR) 06/06/21 06/06/21 06/06/21 11:14 16:50 21:11 WBC MCV MCH MCHC RDW Lymph % (Auto) Dickson % (Auto) Eos % (Auto) Lymph # (Auto) Dickson # (Auto) Eos # (Auto) Baso # (Auto) Seg Neutrophils % Seg Neuts % (Manual) Lymphocytes % (Manual) Seg Neutrophils # Seg Neutrophils # Man Lymphocytes # (Manual) D-Dimer ABG pH POC ABG pCO2 POC ABG pO2 ABG pO2 ABG HCO3 ABG O2 Saturation ABG Base Excess ABG Oxyhemoglobin ABG Sodium ABG Chloride ABG Glucose Oxyhemoglobin Carboxyhemoglobin Sodium Potassium Chloride Carbon Dioxide BUN Creatinine Glucose POC Glucose 267 H 218 H 124 H Hemoglobin A1c Magnesium Ferritin AST ALT Alkaline Phosphatase Lactate Dehydrogenase C-Reactive Protein Total Protein Albumin Arterial Blood Glucose Coronavirus (PCR) 06/07/21 06/07/21 06/08/21 11:58 15:59 07:59 WBC MCV MCH MCHC RDW Lymph % (Auto) Dickson % (Auto) Eos % (Auto) Lymph # (Auto) Dickson # (Auto) Eos # (Auto) Baso # (Auto) Seg Neutrophils % Seg Neuts % (Manual) Lymphocytes % (Manual) Seg Neutrophils # Seg Neutrophils # Man Lymphocytes # (Manual) D-Dimer ABG pH POC ABG pCO2 POC ABG pO2 ABG pO2 ABG HCO3 ABG O2 Saturation ABG Base Excess ABG Oxyhemoglobin ABG Sodium ABG Chloride ABG Glucose Oxyhemoglobin Carboxyhemoglobin Sodium Potassium Chloride Carbon Dioxide BUN Creatinine Glucose POC Glucose 219 H 208 H 192 H Hemoglobin A1c Magnesium Ferritin AST ALT Alkaline Phosphatase Lactate Dehydrogenase C-Reactive Protein Total Protein Albumin Arterial Blood Glucose Coronavirus (PCR) 06/08/21 06/08/21 06/09/21 11:26 23:28 07:33 WBC MCV MCH MCHC RDW Lymph % (Auto) Dickson % (Auto) Eos % (Auto) Lymph # (Auto) Dickson # (Auto) Eos # (Auto) Baso # (Auto) Seg Neutrophils % Seg Neuts % (Manual) Lymphocytes % (Manual) Seg Neutrophils # Seg Neutrophils # Man Lymphocytes # (Manual) D-Dimer ABG pH POC ABG pCO2 POC ABG pO2 ABG pO2 ABG HCO3 ABG O2 Saturation ABG Base Excess ABG Oxyhemoglobin ABG Sodium ABG Chloride ABG Glucose Oxyhemoglobin Carboxyhemoglobin Sodium Potassium Chloride Carbon Dioxide BUN Creatinine Glucose POC Glucose 307 H 138 H 145 H Hemoglobin A1c Magnesium Ferritin AST ALT Alkaline Phosphatase Lactate Dehydrogenase C-Reactive Protein Total Protein Albumin Arterial Blood Glucose Coronavirus (PCR) 06/09/21 06/09/21 06/09/21 11:01 15:47 21:43 WBC MCV MCH MCHC RDW Lymph % (Auto) Dickson % (Auto) Eos % (Auto) Lymph # (Auto) Dickson # (Auto) Eos # (Auto) Baso # (Auto) Seg Neutrophils % Seg Neuts % (Manual) Lymphocytes % (Manual) Seg Neutrophils # Seg Neutrophils # Man Lymphocytes # (Manual) D-Dimer ABG pH POC ABG pCO2 POC ABG pO2 ABG pO2 ABG HCO3 ABG O2 Saturation ABG Base Excess ABG Oxyhemoglobin ABG Sodium ABG Chloride ABG Glucose Oxyhemoglobin Carboxyhemoglobin Sodium Potassium Chloride Carbon Dioxide BUN Creatinine Glucose POC Glucose 266 H 305 H 223 H Hemoglobin A1c Magnesium Ferritin AST ALT Alkaline Phosphatase Lactate Dehydrogenase C-Reactive Protein Total Protein Albumin Arterial Blood Glucose Coronavirus (PCR) 06/10/21 06/10/21 06/10/21 08:27 12:10 17:45 WBC MCV MCH MCHC RDW Lymph % (Auto) Dickson % (Auto) Eos % (Auto) Lymph # (Auto) Dickson # (Auto) Eos # (Auto) Baso # (Auto) Seg Neutrophils % Seg Neuts % (Manual) Lymphocytes % (Manual) Seg Neutrophils # Seg Neutrophils # Man Lymphocytes # (Manual) D-Dimer ABG pH POC ABG pCO2 POC ABG pO2 ABG pO2 ABG HCO3 ABG O2 Saturation ABG Base Excess ABG Oxyhemoglobin ABG Sodium ABG Chloride ABG Glucose Oxyhemoglobin Carboxyhemoglobin Sodium Potassium Chloride Carbon Dioxide BUN Creatinine Glucose POC Glucose 174 H 306 H 210 H Hemoglobin A1c Magnesium Ferritin AST ALT Alkaline Phosphatase Lactate Dehydrogenase C-Reactive Protein Total Protein Albumin Arterial Blood Glucose Coronavirus (PCR) 06/10/21 06/11/21 06/11/21 21:45 09:38 09:38 WBC MCV MCH MCHC RDW 20.9 H Lymph % (Auto) Dickson % (Auto) Eos % (Auto) Lymph # (Auto) Dickson # (Auto) Eos # (Auto) Baso # (Auto) Seg Neutrophils % Seg Neuts % (Manual) Lymphocytes % (Manual) Seg Neutrophils # Seg Neutrophils # Man Lymphocytes # (Manual) D-Dimer ABG pH POC ABG pCO2 POC ABG pO2 ABG pO2 ABG HCO3 ABG O2 Saturation ABG Base Excess ABG Oxyhemoglobin ABG Sodium ABG Chloride ABG Glucose Oxyhemoglobin Carboxyhemoglobin Sodium 135 L Potassium Chloride 90.8 L Carbon Dioxide 36 H BUN 29 H Creatinine 0.2 L Glucose 258 H POC Glucose 262 H Hemoglobin A1c Magnesium Ferritin AST ALT Alkaline Phosphatase Lactate Dehydrogenase C-Reactive Protein Total Protein Albumin Arterial Blood Glucose Coronavirus (PCR) 06/11/21 06/11/21 06/11/21 11:20 15:49 22:57 WBC MCV MCH MCHC RDW Lymph % (Auto) Dickson % (Auto) Eos % (Auto) Lymph # (Auto) Dickson # (Auto) Eos # (Auto) Baso # (Auto) Seg Neutrophils % Seg Neuts % (Manual) Lymphocytes % (Manual) Seg Neutrophils # Seg Neutrophils # Man Lymphocytes # (Manual) D-Dimer ABG pH POC ABG pCO2 POC ABG pO2 ABG pO2 ABG HCO3 ABG O2 Saturation ABG Base Excess ABG Oxyhemoglobin ABG Sodium ABG Chloride ABG Glucose Oxyhemoglobin Carboxyhemoglobin Sodium Potassium Chloride Carbon Dioxide BUN Creatinine Glucose POC Glucose 269 H 206 H 211 H Hemoglobin A1c Magnesium Ferritin AST ALT Alkaline Phosphatase Lactate Dehydrogenase C-Reactive Protein Total Protein Albumin Arterial Blood Glucose Coronavirus (PCR) 06/12/21 06/12/21 06/12/21 08:07 11:24 18:08 WBC MCV MCH MCHC RDW Lymph % (Auto) Dickson % (Auto) Eos % (Auto) Lymph # (Auto) Dickson # (Auto) Eos # (Auto) Baso # (Auto) Seg Neutrophils % Seg Neuts % (Manual) Lymphocytes % (Manual) Seg Neutrophils # Seg Neutrophils # Man Lymphocytes # (Manual) D-Dimer ABG pH POC ABG pCO2 POC ABG pO2 ABG pO2 ABG HCO3 ABG O2 Saturation ABG Base Excess ABG Oxyhemoglobin ABG Sodium ABG Chloride ABG Glucose Oxyhemoglobin Carboxyhemoglobin Sodium Potassium Chloride Carbon Dioxide BUN Creatinine Glucose POC Glucose 149 H 270 H 166 H Hemoglobin A1c Magnesium Ferritin AST ALT Alkaline Phosphatase Lactate Dehydrogenase C-Reactive Protein Total Protein Albumin Arterial Blood Glucose Coronavirus (PCR) 06/12/21 06/13/21 06/13/21 20:22 07:50 11:18 WBC MCV MCH MCHC RDW Lymph % (Auto) Dickson % (Auto) Eos % (Auto) Lymph # (Auto) Dickson # (Auto) Eos # (Auto) Baso # (Auto) Seg Neutrophils % Seg Neuts % (Manual) Lymphocytes % (Manual) Seg Neutrophils # Seg Neutrophils # Man Lymphocytes # (Manual) D-Dimer ABG pH POC ABG pCO2 POC ABG pO2 ABG pO2 ABG HCO3 ABG O2 Saturation ABG Base Excess ABG Oxyhemoglobin ABG Sodium ABG Chloride ABG Glucose Oxyhemoglobin Carboxyhemoglobin Sodium Potassium Chloride Carbon Dioxide BUN Creatinine Glucose POC Glucose 155 H 163 H 293 H Hemoglobin A1c Magnesium Ferritin AST ALT Alkaline Phosphatase Lactate Dehydrogenase C-Reactive Protein Total Protein Albumin Arterial Blood Glucose Coronavirus (PCR) 06/13/21 06/13/21 06/14/21 16:41 21:00 07:41 WBC MCV MCH MCHC RDW Lymph % (Auto) Dickson % (Auto) Eos % (Auto) Lymph # (Auto) Dickson # (Auto) Eos # (Auto) Baso # (Auto) Seg Neutrophils % Seg Neuts % (Manual) Lymphocytes % (Manual) Seg Neutrophils # Seg Neutrophils # Man Lymphocytes # (Manual) D-Dimer ABG pH POC ABG pCO2 POC ABG pO2 ABG pO2 ABG HCO3 ABG O2 Saturation ABG Base Excess ABG Oxyhemoglobin ABG Sodium ABG Chloride ABG Glucose Oxyhemoglobin Carboxyhemoglobin Sodium Potassium Chloride Carbon Dioxide BUN Creatinine Glucose POC Glucose 232 H 183 H 52 L Hemoglobin A1c Magnesium Ferritin AST ALT Alkaline Phosphatase Lactate Dehydrogenase C-Reactive Protein Total Protein Albumin Arterial Blood Glucose Coronavirus (PCR) 06/14/21 06/14/21 06/14/21 11:44 17:44 21:44 WBC MCV MCH MCHC RDW Lymph % (Auto) Dickson % (Auto) Eos % (Auto) Lymph # (Auto) Dickson # (Auto) Eos # (Auto) Baso # (Auto) Seg Neutrophils % Seg Neuts % (Manual) Lymphocytes % (Manual) Seg Neutrophils # Seg Neutrophils # Man Lymphocytes # (Manual) D-Dimer ABG pH POC ABG pCO2 POC ABG pO2 ABG pO2 ABG HCO3 ABG O2 Saturation ABG Base Excess ABG Oxyhemoglobin ABG Sodium ABG Chloride ABG Glucose Oxyhemoglobin Carboxyhemoglobin Sodium Potassium Chloride Carbon Dioxide BUN Creatinine Glucose POC Glucose 205 H 293 H 288 H Hemoglobin A1c Magnesium Ferritin AST ALT Alkaline Phosphatase Lactate Dehydrogenase C-Reactive Protein Total Protein Albumin Arterial Blood Glucose Coronavirus (PCR) 06/15/21 06/15/21 06/15/21 08:00 08:00 11:40 WBC MCV MCH 33 H MCHC 35 H RDW 20.3 H Lymph % (Auto) Dickson % (Auto) Eos % (Auto) Lymph # (Auto) Dickson # (Auto) Eos # (Auto) Baso # (Auto) Seg Neutrophils % Seg Neuts % (Manual) Lymphocytes % (Manual) Seg Neutrophils # Seg Neutrophils # Man Lymphocytes # (Manual) D-Dimer ABG pH POC ABG pCO2 POC ABG pO2 ABG pO2 ABG HCO3 ABG O2 Saturation ABG Base Excess ABG Oxyhemoglobin ABG Sodium ABG Chloride ABG Glucose Oxyhemoglobin Carboxyhemoglobin Sodium Potassium 3.2 L Chloride 95.3 L Carbon Dioxide 32 H BUN 23 H Creatinine 0.2 L Glucose 103 H POC Glucose 204 H Hemoglobin A1c Magnesium Ferritin AST ALT Alkaline Phosphatase Lactate Dehydrogenase C-Reactive Protein Total Protein Albumin Arterial Blood Glucose Coronavirus (PCR) 06/15/21 06/15/21 06/16/21 16:17 22:00 11:43 WBC MCV MCH MCHC RDW Lymph % (Auto) Dickson % (Auto) Eos % (Auto) Lymph # (Auto) Dickson # (Auto) Eos # (Auto) Baso # (Auto) Seg Neutrophils % Seg Neuts % (Manual) Lymphocytes % (Manual) Seg Neutrophils # Seg Neutrophils # Man Lymphocytes # (Manual) D-Dimer ABG pH POC ABG pCO2 POC ABG pO2 ABG pO2 ABG HCO3 ABG O2 Saturation ABG Base Excess ABG Oxyhemoglobin ABG Sodium ABG Chloride ABG Glucose Oxyhemoglobin Carboxyhemoglobin Sodium Potassium Chloride Carbon Dioxide BUN Creatinine Glucose POC Glucose 295 H 233 H 201 H Hemoglobin A1c Magnesium Ferritin AST ALT Alkaline Phosphatase Lactate Dehydrogenase C-Reactive Protein Total Protein Albumin Arterial Blood Glucose Coronavirus (PCR) 06/16/21 06/16/21 06/17/21 17:21 21:27 07:12 WBC MCV MCH MCHC RDW Lymph % (Auto) Dickson % (Auto) Eos % (Auto) Lymph # (Auto) Dickson # (Auto) Eos # (Auto) Baso # (Auto) Seg Neutrophils % Seg Neuts % (Manual) Lymphocytes % (Manual) Seg Neutrophils # Seg Neutrophils # Man Lymphocytes # (Manual) D-Dimer ABG pH POC ABG pCO2 POC ABG pO2 ABG pO2 ABG HCO3 ABG O2 Saturation ABG Base Excess ABG Oxyhemoglobin ABG Sodium ABG Chloride ABG Glucose Oxyhemoglobin Carboxyhemoglobin Sodium Potassium Chloride Carbon Dioxide BUN Creatinine Glucose POC Glucose 299 H 290 H 67 L Hemoglobin A1c Magnesium Ferritin AST ALT Alkaline Phosphatase Lactate Dehydrogenase C-Reactive Protein Total Protein Albumin Arterial Blood Glucose Coronavirus (PCR) 06/17/21 06/17/21 06/17/21 11:53 17:02 22:25 WBC MCV MCH MCHC RDW Lymph % (Auto) Dickson % (Auto) Eos % (Auto) Lymph # (Auto) Dickson # (Auto) Eos # (Auto) Baso # (Auto) Seg Neutrophils % Seg Neuts % (Manual) Lymphocytes % (Manual) Seg Neutrophils # Seg Neutrophils # Man Lymphocytes # (Manual) D-Dimer ABG pH POC ABG pCO2 POC ABG pO2 ABG pO2 ABG HCO3 ABG O2 Saturation ABG Base Excess ABG Oxyhemoglobin ABG Sodium ABG Chloride ABG Glucose Oxyhemoglobin Carboxyhemoglobin Sodium Potassium Chloride Carbon Dioxide BUN Creatinine Glucose POC Glucose 199 H 362 H 235 H Hemoglobin A1c Magnesium Ferritin AST ALT Alkaline Phosphatase Lactate Dehydrogenase C-Reactive Protein Total Protein Albumin Arterial Blood Glucose Coronavirus (PCR) 06/18/21 06/18/21 06/18/21 08:00 11:48 16:40 WBC MCV MCH MCHC RDW Lymph % (Auto) Dickson % (Auto) Eos % (Auto) Lymph # (Auto) Dickson # (Auto) Eos # (Auto) Baso # (Auto) Seg Neutrophils % Seg Neuts % (Manual) Lymphocytes % (Manual) Seg Neutrophils # Seg Neutrophils # Man Lymphocytes # (Manual) D-Dimer ABG pH POC ABG pCO2 POC ABG pO2 ABG pO2 ABG HCO3 ABG O2 Saturation ABG Base Excess ABG Oxyhemoglobin ABG Sodium ABG Chloride ABG Glucose Oxyhemoglobin Carboxyhemoglobin Sodium Potassium Chloride Carbon Dioxide BUN Creatinine Glucose POC Glucose 62 L 211 H 305 H Hemoglobin A1c Magnesium Ferritin AST ALT Alkaline Phosphatase Lactate Dehydrogenase C-Reactive Protein Total Protein Albumin Arterial Blood Glucose Coronavirus (PCR) 06/18/21 06/19/21 06/19/21 21:26 07:27 11:32 WBC MCV MCH MCHC RDW Lymph % (Auto) Dickson % (Auto) Eos % (Auto) Lymph # (Auto) Dickson # (Auto) Eos # (Auto) Baso # (Auto) Seg Neutrophils % Seg Neuts % (Manual) Lymphocytes % (Manual) Seg Neutrophils # Seg Neutrophils # Man Lymphocytes # (Manual) D-Dimer ABG pH POC ABG pCO2 POC ABG pO2 ABG pO2 ABG HCO3 ABG O2 Saturation ABG Base Excess ABG Oxyhemoglobin ABG Sodium ABG Chloride ABG Glucose Oxyhemoglobin Carboxyhemoglobin Sodium Potassium Chloride Carbon Dioxide BUN Creatinine Glucose POC Glucose 149 H 60 L 208 H Hemoglobin A1c Magnesium Ferritin AST ALT Alkaline Phosphatase Lactate Dehydrogenase C-Reactive Protein Total Protein Albumin Arterial Blood Glucose Coronavirus (PCR) 06/19/21 06/19/21 06/20/21 16:06 22:28 07:48 WBC MCV MCH MCHC RDW Lymph % (Auto) Dickson % (Auto) Eos % (Auto) Lymph # (Auto) Dickson # (Auto) Eos # (Auto) Baso # (Auto) Seg Neutrophils % Seg Neuts % (Manual) Lymphocytes % (Manual) Seg Neutrophils # Seg Neutrophils # Man Lymphocytes # (Manual) D-Dimer ABG pH POC ABG pCO2 POC ABG pO2 ABG pO2 ABG HCO3 ABG O2 Saturation ABG Base Excess ABG Oxyhemoglobin ABG Sodium ABG Chloride ABG Glucose Oxyhemoglobin Carboxyhemoglobin Sodium Potassium Chloride Carbon Dioxide BUN Creatinine Glucose POC Glucose 266 H 166 H 58 L Hemoglobin A1c Magnesium Ferritin AST ALT Alkaline Phosphatase Lactate Dehydrogenase C-Reactive Protein Total Protein Albumin Arterial Blood Glucose Coronavirus (PCR) 06/20/21 06/20/21 06/20/21 09:09 11:04 16:01 WBC MCV MCH MCHC RDW Lymph % (Auto) Dickson % (Auto) Eos % (Auto) Lymph # (Auto) Dickson # (Auto) Eos # (Auto) Baso # (Auto) Seg Neutrophils % Seg Neuts % (Manual) Lymphocytes % (Manual) Seg Neutrophils # Seg Neutrophils # Man Lymphocytes # (Manual) D-Dimer ABG pH POC ABG pCO2 POC ABG pO2 ABG pO2 ABG HCO3 ABG O2 Saturation ABG Base Excess ABG Oxyhemoglobin ABG Sodium ABG Chloride ABG Glucose Oxyhemoglobin Carboxyhemoglobin Sodium Potassium Chloride Carbon Dioxide BUN Creatinine Glucose POC Glucose 146 H 225 H 330 H Hemoglobin A1c Magnesium Ferritin AST ALT Alkaline Phosphatase Lactate Dehydrogenase C-Reactive Protein Total Protein Albumin Arterial Blood Glucose Coronavirus (PCR) 06/20/21 06/21/21 06/21/21 20:46 06:45 06:45 WBC MCV MCH MCHC RDW 20.0 H Lymph % (Auto) Dickson % (Auto) Eos % (Auto) Lymph # (Auto) Dickson # (Auto) Eos # (Auto) Baso # (Auto) Seg Neutrophils % Seg Neuts % (Manual) Lymphocytes % (Manual) Seg Neutrophils # Seg Neutrophils # Man Lymphocytes # (Manual) D-Dimer ABG pH POC ABG pCO2 POC ABG pO2 ABG pO2 ABG HCO3 ABG O2 Saturation ABG Base Excess ABG Oxyhemoglobin ABG Sodium ABG Chloride ABG Glucose Oxyhemoglobin Carboxyhemoglobin Sodium Potassium 2.9 L* Chloride 95.0 L Carbon Dioxide 31 H BUN 23 H Creatinine 0.2 L Glucose 45 L POC Glucose 215 H Hemoglobin A1c Magnesium Ferritin AST ALT Alkaline Phosphatase Lactate Dehydrogenase C-Reactive Protein Total Protein Albumin Arterial Blood Glucose Coronavirus (PCR) 06/21/21 06/21/21 06/21/21 07:38 09:06 12:40 WBC MCV MCH MCHC RDW Lymph % (Auto) Dickson % (Auto) Eos % (Auto) Lymph # (Auto) Dickson # (Auto) Eos # (Auto) Baso # (Auto) Seg Neutrophils % Seg Neuts % (Manual) Lymphocytes % (Manual) Seg Neutrophils # Seg Neutrophils # Man Lymphocytes # (Manual) D-Dimer ABG pH POC ABG pCO2 POC ABG pO2 ABG pO2 ABG HCO3 ABG O2 Saturation ABG Base Excess ABG Oxyhemoglobin ABG Sodium ABG Chloride ABG Glucose Oxyhemoglobin Carboxyhemoglobin Sodium Potassium Chloride Carbon Dioxide BUN Creatinine Glucose POC Glucose 50 L 196 H 205 H Hemoglobin A1c Magnesium Ferritin AST ALT Alkaline Phosphatase Lactate Dehydrogenase C-Reactive Protein Total Protein Albumin Arterial Blood Glucose Coronavirus (PCR) 06/21/21 06/22/21 06/22/21 21:36 06:25 07:15 WBC MCV MCH MCHC RDW Lymph % (Auto) Dickson % (Auto) Eos % (Auto) Lymph # (Auto) Dickson # (Auto) Eos # (Auto) Baso # (Auto) Seg Neutrophils % Seg Neuts % (Manual) Lymphocytes % (Manual) Seg Neutrophils # Seg Neutrophils # Man Lymphocytes # (Manual) D-Dimer ABG pH POC ABG pCO2 POC ABG pO2 ABG pO2 ABG HCO3 ABG O2 Saturation ABG Base Excess ABG Oxyhemoglobin ABG Sodium ABG Chloride ABG Glucose Oxyhemoglobin Carboxyhemoglobin Sodium Potassium Chloride Carbon Dioxide BUN 20 H Creatinine 0.2 L Glucose POC Glucose 245 H 66 L Hemoglobin A1c Magnesium Ferritin AST ALT Alkaline Phosphatase Lactate Dehydrogenase C-Reactive Protein Total Protein Albumin Arterial Blood Glucose Coronavirus (PCR) 06/22/21 06/22/21 06/22/21 11:03 16:07 22:03 WBC MCV MCH MCHC RDW Lymph % (Auto) Dickson % (Auto) Eos % (Auto) Lymph # (Auto) Dickson # (Auto) Eos # (Auto) Baso # (Auto) Seg Neutrophils % Seg Neuts % (Manual) Lymphocytes % (Manual) Seg Neutrophils # Seg Neutrophils # Man Lymphocytes # (Manual) D-Dimer ABG pH POC ABG pCO2 POC ABG pO2 ABG pO2 ABG HCO3 ABG O2 Saturation ABG Base Excess ABG Oxyhemoglobin ABG Sodium ABG Chloride ABG Glucose Oxyhemoglobin Carboxyhemoglobin Sodium Potassium Chloride Carbon Dioxide BUN Creatinine Glucose POC Glucose 184 H 326 H 138 H Hemoglobin A1c Magnesium Ferritin AST ALT Alkaline Phosphatase Lactate Dehydrogenase C-Reactive Protein Total Protein Albumin Arterial Blood Glucose Coronavirus (PCR) 06/23/21 06/23/21 06/23/21 07:19 10:34 16:35 WBC MCV MCH MCHC RDW Lymph % (Auto) [place]ickson % (Auto) Eos % (Auto) Lymph # (Auto) [place]ickson # (Auto) Eos # (Auto) Baso # (Auto) Seg Neutrophils % Seg Neuts % (Manual) Lymphocytes % (Manual) Seg Neutrophils # Seg Neutrophils # Man Lymphocytes # (Manual) D-Dimer ABG pH POC ABG pCO2 POC ABG pO2 ABG pO2 ABG HCO3 ABG O2 Saturation ABG Base Excess ABG Oxyhemoglobin ABG Sodium ABG Chloride ABG Glucose Oxyhemoglobin Carboxyhemoglobin Sodium Potassium Chloride Carbon Dioxide BUN Creatinine Glucose POC Glucose 69 L 218 H 326 H Hemoglobin A1c Magnesium Ferritin AST ALT Alkaline Phosphatase Lactate Dehydrogenase C-Reactive Protein Total Protein Albumin Arterial Blood Glucose Coronavirus (PCR) 06/23/21 06/24/21 06/24/21 22:44 11:41 16:54 WBC MCV MCH MCHC RDW Lymph % (Auto) [place]on % (Auto) Eos % (Auto) Lymph # (Auto) [place]on # (Auto) Eos # (Auto) Baso # (Auto) Seg Neutrophils % Seg Neuts % (Manual) Lymphocytes % (Manual) Seg Neutrophils # Seg Neutrophils # Man Lymphocytes # (Manual) D-Dimer ABG pH POC ABG pCO2 POC ABG pO2 ABG pO2 ABG HCO3 ABG O2 Saturation ABG Base Excess ABG Oxyhemoglobin ABG Sodium ABG Chloride ABG Glucose Oxyhemoglobin Carboxyhemoglobin Sodium Potassium Chloride Carbon Dioxide BUN Creatinine Glucose POC Glucose 252 H 217 H 357 H Hemoglobin A1c Magnesium Ferritin AST ALT Alkaline Phosphatase Lactate Dehydrogenase C-Reactive Protein Total Protein Albumin Arterial Blood Glucose Coronavirus (PCR) 06/24/21 06/25/21 06/25/21 20:40 11:51 16:47 WBC MCV MCH MCHC RDW Lymph % (Auto) [place] % (Auto) Eos % (Auto) Lymph # (Auto) [place]on # (Auto) Eos # (Auto) Baso # (Auto) Seg Neutrophils % Seg Neuts % (Manual) Lymphocytes % (Manual) Seg Neutrophils # Seg Neutrophils # Man Lymphocytes # (Manual) D-Dimer ABG pH POC ABG pCO2 POC ABG pO2 ABG pO2 ABG HCO3 ABG O2 Saturation ABG Base Excess ABG Oxyhemoglobin ABG Sodium ABG Chloride ABG Glucose Oxyhemoglobin Carboxyhemoglobin Sodium Potassium Chloride Carbon Dioxide BUN Creatinine Glucose POC Glucose 239 H 182 H 229 H Hemoglobin A1c Magnesium Ferritin AST ALT Alkaline Phosphatase Lactate Dehydrogenase C-Reactive Protein Total Protein Albumin Arterial Blood Glucose Coronavirus (PCR) 06/25/21 06/26/21 06/26/21 22:27 07:20 12:19 WBC MCV MCH MCHC RDW Lymph % (Auto) [place]on % (Auto) Eos % (Auto) Lymph # (Auto) [place]on # (Auto) Eos # (Auto) Baso # (Auto) Seg Neutrophils % Seg Neuts % (Manual) Lymphocytes % (Manual) Seg Neutrophils # Seg Neutrophils # Man Lymphocytes # (Manual) D-Dimer ABG pH POC ABG pCO2 POC ABG pO2 ABG pO2 ABG HCO3 ABG O2 Saturation ABG Base Excess ABG Oxyhemoglobin ABG Sodium ABG Chloride ABG Glucose Oxyhemoglobin Carboxyhemoglobin Sodium Potassium 3.2 L D Chloride Carbon Dioxide BUN 20 H Creatinine 0.3 L Glucose POC Glucose 209 H 273 H Hemoglobin A1c Magnesium Ferritin AST ALT 77 H Alkaline Phosphatase Lactate Dehydrogenase C-Reactive Protein Total Protein Albumin 3.3 L Arterial Blood Glucose Coronavirus (PCR) 06/26/21 06/26/21 06/27/21 16:52 20:55 07:14 WBC MCV MCH MCHC RDW Lymph % (Auto) [place]on % (Auto) Eos % (Auto) Lymph # (Auto) [place]on # (Auto) Eos # (Auto) Baso # (Auto) Seg Neutrophils % Seg Neuts % (Manual) Lymphocytes % (Manual) Seg Neutrophils # Seg Neutrophils # Man Lymphocytes # (Manual) D-Dimer ABG pH POC ABG pCO2 POC ABG pO2 ABG pO2 ABG HCO3 ABG O2 Saturation ABG Base Excess ABG Oxyhemoglobin ABG Sodium ABG Chloride ABG Glucose Oxyhemoglobin Carboxyhemoglobin Sodium Potassium Chloride Carbon Dioxide 31 H BUN 19 H Creatinine 0.2 L Glucose 112 H POC Glucose 326 H 220 H Hemoglobin A1c Magnesium Ferritin AST ALT Alkaline Phosphatase Lactate Dehydrogenase C-Reactive Protein Total Protein Albumin Arterial Blood Glucose Coronavirus (PCR) 06/27/21 06/27/21 06/27/21 07:29 10:54 15:49 WBC MCV MCH MCHC RDW Lymph % (Auto) [place]on % (Auto) Eos % (Auto) Lymph # (Auto) [place]on # (Auto) Eos # (Auto) Baso # (Auto) Seg Neutrophils % Seg Neuts % (Manual) Lymphocytes % (Manual) Seg Neutrophils # Seg Neutrophils # Man Lymphocytes # (Manual) D-Dimer ABG pH POC ABG pCO2 POC ABG pO2 ABG pO2 ABG HCO3 ABG O2 Saturation ABG Base Excess ABG Oxyhemoglobin ABG Sodium ABG Chloride ABG Glucose Oxyhemoglobin Carboxyhemoglobin Sodium Potassium Chloride Carbon Dioxide BUN Creatinine Glucose POC Glucose 115 H 228 H 240 H Hemoglobin A1c Magnesium Ferritin AST ALT Alkaline Phosphatase Lactate Dehydrogenase C-Reactive Protein Total Protein Albumin Arterial Blood Glucose Coronavirus (PCR) 06/28/21 06/28/21 06/28/21 05:43 05:43 07:13 WBC MCV MCH 33 H MCHC RDW 19.8 H Lymph % (Auto) Dickson % (Auto) Eos % (Auto) Lymph # (Auto) [place]on # (Auto) Eos # (Auto) Baso # (Auto) Seg Neutrophils % Seg Neuts % (Manual) Lymphocytes % (Manual) Seg Neutrophils # Seg Neutrophils # Man Lymphocytes # (Manual) D-Dimer ABG pH POC ABG pCO2 POC ABG pO2 ABG pO2 ABG HCO3 ABG O2 Saturation ABG Base Excess ABG Oxyhemoglobin ABG Sodium ABG Chloride ABG Glucose Oxyhemoglobin Carboxyhemoglobin Sodium Potassium 3.3 L Chloride Carbon Dioxide BUN 22 H Creatinine 0.2 L Glucose POC Glucose 69 L Hemoglobin A1c Magnesium Ferritin AST ALT 63 H Alkaline Phosphatase Lactate Dehydrogenase C-Reactive Protein Total Protein Albumin 3.3 L Arterial Blood Glucose Coronavirus (PCR) 06/28/21 06/28/21 06/28/21 12:18 15:37 21:01 WBC MCV MCH MCHC RDW Lymph % (Auto) [place]on % (Auto) Eos % (Auto) Lymph # (Auto) [place]on # (Auto) Eos # (Auto) Baso # (Auto) Seg Neutrophils % Seg Neuts % (Manual) Lymphocytes % (Manual) Seg Neutrophils # Seg Neutrophils # Man Lymphocytes # (Manual) D-Dimer ABG pH POC ABG pCO2 POC ABG pO2 ABG pO2 ABG HCO3 ABG O2 Saturation ABG Base Excess ABG Oxyhemoglobin ABG Sodium ABG Chloride ABG Glucose Oxyhemoglobin Carboxyhemoglobin Sodium Potassium Chloride Carbon Dioxide BUN Creatinine Glucose POC Glucose 154 H 201 H 191 H Hemoglobin A1c Magnesium Ferritin AST ALT Alkaline Phosphatase Lactate Dehydrogenase C-Reactive Protein Total Protein Albumin Arterial Blood Glucose Coronavirus (PCR) 06/29/21 06/29/21 06/29/21 11:55 15:47 21:06 WBC MCV MCH MCHC RDW Lymph % (Auto) [place]on % (Auto) Eos % (Auto) Lymph # (Auto) [place]on # (Auto) Eos # (Auto) Baso # (Auto) Seg Neutrophils % Seg Neuts % (Manual) Lymphocytes % (Manual) Seg Neutrophils # Seg Neutrophils # Man Lymphocytes # (Manual) D-Dimer ABG pH POC ABG pCO2 POC ABG pO2 ABG pO2 ABG HCO3 ABG O2 Saturation ABG Base Excess ABG Oxyhemoglobin ABG Sodium ABG Chloride ABG Glucose Oxyhemoglobin Carboxyhemoglobin Sodium Potassium Chloride Carbon Dioxide BUN Creatinine Glucose POC Glucose 238 H 249 H 155 H Hemoglobin A1c Magnesium Ferritin AST ALT Alkaline Phosphatase Lactate Dehydrogenase C-Reactive Protein Total Protein Albumin Arterial Blood Glucose Coronavirus (PCR) 06/30/21 06/30/21 06/30/21 04:00 07:50 11:50 WBC MCV MCH MCHC RDW Lymph % (Auto) [place]on % (Auto) Eos % (Auto) Lymph # (Auto) [place]on # (Auto) Eos # (Auto) Baso # (Auto) Seg Neutrophils % Seg Neuts % (Manual) Lymphocytes % (Manual) Seg Neutrophils # Seg Neutrophils # Man Lymphocytes # (Manual) D-Dimer ABG pH POC ABG pCO2 POC ABG pO2 ABG pO2 ABG HCO3 ABG O2 Saturation ABG Base Excess ABG Oxyhemoglobin ABG Sodium ABG Chloride ABG Glucose Oxyhemoglobin Carboxyhemoglobin Sodium Potassium 3.5 L Chloride Carbon Dioxide BUN 18 H Creatinine 0.3 L Glucose 111 H POC Glucose 117 H 250 H Hemoglobin A1c Magnesium Ferritin AST ALT Alkaline Phosphatase Lactate Dehydrogenase C-Reactive Protein Total Protein Albumin Arterial Blood Glucose Coronavirus (PCR) 06/30/21 06/30/21 07/01/21 16:05 21:02 07:26 WBC MCV MCH MCHC RDW Lymph % (Auto) [place]on % (Auto) Eos % (Auto) Lymph # (Auto) [place]on # (Auto) Eos # (Auto) Baso # (Auto) Seg Neutrophils % Seg Neuts % (Manual) Lymphocytes % (Manual) Seg Neutrophils # Seg Neutrophils # Man Lymphocytes # (Manual) D-Dimer ABG pH POC ABG pCO2 POC ABG pO2 ABG pO2 ABG HCO3 ABG O2 Saturation ABG Base Excess ABG Oxyhemoglobin ABG Sodium ABG Chloride ABG Glucose Oxyhemoglobin Carboxyhemoglobin Sodium Potassium Chloride Carbon Dioxide BUN Creatinine Glucose POC Glucose 250 H 217 H 111 H Hemoglobin A1c Magnesium Ferritin AST ALT Alkaline Phosphatase Lactate Dehydrogenase C-Reactive Protein Total Protein Albumin Arterial Blood Glucose Coronavirus (PCR) 07/01/21 07/01/21 07/01/21 11:06 15:48 21:31 WBC MCV MCH MCHC RDW Lymph % (Auto) [place]on % (Auto) Eos % (Auto) Lymph # (Auto) [place]on # (Auto) Eos # (Auto) Baso # (Auto) Seg Neutrophils % Seg Neuts % (Manual) Lymphocytes % (Manual) Seg Neutrophils # Seg Neutrophils # Man Lymphocytes # (Manual) D-Dimer ABG pH POC ABG pCO2 POC ABG pO2 ABG pO2 ABG HCO3 ABG O2 Saturation ABG Base Excess ABG Oxyhemoglobin ABG Sodium ABG Chloride ABG Glucose Oxyhemoglobin Carboxyhemoglobin Sodium Potassium Chloride Carbon Dioxide BUN Creatinine Glucose POC Glucose 229 H 239 H 199 H Hemoglobin A1c Magnesium Ferritin AST ALT Alkaline Phosphatase Lactate Dehydrogenase C-Reactive Protein Total Protein Albumin Arterial Blood Glucose Coronavirus (PCR) 07/02/21 07/02/21 07/02/21 11:50 16:44 21:49 WBC MCV MCH MCHC RDW Lymph % (Auto) [place]on % (Auto) Eos % (Auto) Lymph # (Auto) [place]on # (Auto) Eos # (Auto) Baso # (Auto) Seg Neutrophils % Seg Neuts % (Manual) Lymphocytes % (Manual) Seg Neutrophils # Seg Neutrophils # Man Lymphocytes # (Manual) D-Dimer ABG pH POC ABG pCO2 POC ABG pO2 ABG pO2 ABG HCO3 ABG O2 Saturation ABG Base Excess ABG Oxyhemoglobin ABG Sodium ABG Chloride ABG Glucose Oxyhemoglobin Carboxyhemoglobin Sodium Potassium Chloride Carbon Dioxide BUN Creatinine Glucose POC Glucose 230 H 203 H 197 H Hemoglobin A1c Magnesium Ferritin AST ALT Alkaline Phosphatase Lactate Dehydrogenase C-Reactive Protein Total Protein Albumin Arterial Blood Glucose Coronavirus (PCR) 07/03/21 07/03/21 07/03/21 05:46 05:46 11:59 WBC MCV MCH MCHC RDW 19.6 H Lymph % (Auto) [place]ickson % (Auto) Eos % (Auto) Lymph # (Auto) [place]on # (Auto) Eos # (Auto) Baso # (Auto) Seg Neutrophils % Seg Neuts % (Manual) Lymphocytes % (Manual) Seg Neutrophils # Seg Neutrophils # Man Lymphocytes # (Manual) D-Dimer ABG pH POC ABG pCO2 POC ABG pO2 ABG pO2 ABG HCO3 ABG O2 Saturation ABG Base Excess ABG Oxyhemoglobin ABG Sodium ABG Chloride ABG Glucose Oxyhemoglobin Carboxyhemoglobin Sodium Potassium 3.2 L Chloride Carbon Dioxide BUN Creatinine 0.3 L Glucose POC Glucose 145 H Hemoglobin A1c Magnesium Ferritin AST ALT Alkaline Phosphatase Lactate Dehydrogenase C-Reactive Protein Total Protein Albumin Arterial Blood Glucose Coronavirus (PCR) 07/03/21 07/03/21 07/04/21 16:40 22:00 06:35 WBC MCV MCH MCHC RDW Lymph % (Auto) [place]on % (Auto) Eos % (Auto) Lymph # (Auto) [place]on # (Auto) Eos # (Auto) Baso # (Auto) Seg Neutrophils % Seg Neuts % (Manual) Lymphocytes % (Manual) Seg Neutrophils # Seg Neutrophils # Man Lymphocytes # (Manual) D-Dimer ABG pH POC ABG pCO2 POC ABG pO2 ABG pO2 ABG HCO3 ABG O2 Saturation ABG Base Excess ABG Oxyhemoglobin ABG Sodium ABG Chloride ABG Glucose Oxyhemoglobin Carboxyhemoglobin Sodium Potassium Chloride Carbon Dioxide BUN Creatinine 0.3 L Glucose 118 H POC Glucose 176 H 127 H Hemoglobin A1c Magnesium Ferritin AST ALT Alkaline Phosphatase Lactate Dehydrogenase C-Reactive Protein Total Protein Albumin Arterial Blood Glucose Coronavirus (PCR) 07/04/21 07/04/21 07/05/21 12:30 16:38 08:37 WBC MCV MCH MCHC RDW Lymph % (Auto) [place]on % (Auto) Eos % (Auto) Lymph # (Auto) [place]on # (Auto) Eos # (Auto) Baso # (Auto) Seg Neutrophils % Seg Neuts % (Manual) Lymphocytes % (Manual) Seg Neutrophils # Seg Neutrophils # Man Lymphocytes # (Manual) D-Dimer ABG pH POC ABG pCO2 POC ABG pO2 ABG pO2 ABG HCO3 ABG O2 Saturation ABG Base Excess ABG Oxyhemoglobin ABG Sodium ABG Chloride ABG Glucose Oxyhemoglobin Carboxyhemoglobin Sodium Potassium Chloride Carbon Dioxide BUN Creatinine Glucose POC Glucose 162 H 205 H 115 H Hemoglobin A1c Magnesium Ferritin AST ALT Alkaline Phosphatase Lactate Dehydrogenase C-Reactive Protein Total Protein Albumin Arterial Blood Glucose Coronavirus (PCR) 07/05/21 07/05/21 07/05/21 10:57 16:42 21:14 WBC MCV MCH MCHC RDW Lymph % (Auto) [place]on % (Auto) Eos % (Auto) Lymph # (Auto) [place]on # (Auto) Eos # (Auto) Baso # (Auto) Seg Neutrophils % Seg Neuts % (Manual) Lymphocytes % (Manual) Seg Neutrophils # Seg Neutrophils # Man Lymphocytes # (Manual) D-Dimer ABG pH POC ABG pCO2 POC ABG pO2 ABG pO2 ABG HCO3 ABG O2 Saturation ABG Base Excess ABG Oxyhemoglobin ABG Sodium ABG Chloride ABG Glucose Oxyhemoglobin Carboxyhemoglobin Sodium Potassium Chloride Carbon Dioxide BUN Creatinine Glucose POC Glucose 151 H 184 H 130 H Hemoglobin A1c Magnesium Ferritin AST ALT Alkaline Phosphatase Lactate Dehydrogenase C-Reactive Protein Total Protein Albumin Arterial Blood Glucose Coronavirus (PCR) 07/06/21 07/06/21 07/06/21 07:31 11:49 16:46 WBC MCV MCH MCHC RDW Lymph % (Auto) [place]on % (Auto) Eos % (Auto) Lymph # (Auto) [place]on # (Auto) Eos # (Auto) Baso # (Auto) Seg Neutrophils % Seg Neuts % (Manual) Lymphocytes % (Manual) Seg Neutrophils # Seg Neutrophils # Man Lymphocytes # (Manual) D-Dimer ABG pH POC ABG pCO2 POC ABG pO2 ABG pO2 ABG HCO3 ABG O2 Saturation ABG Base Excess ABG Oxyhemoglobin ABG Sodium ABG Chloride ABG Glucose Oxyhemoglobin Carboxyhemoglobin Sodium Potassium Chloride Carbon Dioxide BUN Creatinine Glucose POC Glucose 106 H 173 H 205 H Hemoglobin A1c Magnesium Ferritin AST ALT Alkaline Phosphatase Lactate Dehydrogenase C-Reactive Protein Total Protein Albumin Arterial Blood Glucose Coronavirus (PCR) 07/06/21 07/07/21 07/07/21 21:38 06:00 06:00 WBC 16.1 H MCV MCH MCHC RDW 18.8 H Lymph % (Auto) [place]ickson % (Auto) Eos % (Auto) Lymph # (Auto) [place]ickson # (Auto) 1.1 H Eos # (Auto) Baso # (Auto) 0.2 H Seg Neutrophils % 74.9 H Seg Neuts % (Manual) Lymphocytes % (Manual) Seg Neutrophils # 12.1 H Seg Neutrophils # Man Lymphocytes # (Manual) D-Dimer ABG pH POC ABG pCO2 POC ABG pO2 ABG pO2 ABG HCO3 ABG O2 Saturation ABG Base Excess ABG Oxyhemoglobin ABG Sodium ABG Chloride ABG Glucose Oxyhemoglobin Carboxyhemoglobin Sodium Potassium 3.5 L D Chloride Carbon Dioxide BUN 6 L Creatinine < 0.2 L Glucose 106 H POC Glucose 120 H Hemoglobin A1c Magnesium Ferritin AST ALT Alkaline Phosphatase Lactate Dehydrogenase C-Reactive Protein Total Protein Albumin Arterial Blood Glucose Coronavirus (PCR) 07/07/21 07/07/21 07/07/21 07:10 11:53 15:53 WBC MCV MCH MCHC RDW Lymph % (Auto) [place]on % (Auto) Eos % (Auto) Lymph # (Auto) [place]on # (Auto) Eos # (Auto) Baso # (Auto) Seg Neutrophils % Seg Neuts % (Manual) Lymphocytes % (Manual) Seg Neutrophils # Seg Neutrophils # Man Lymphocytes # (Manual) D-Dimer ABG pH POC ABG pCO2 POC ABG pO2 ABG pO2 ABG HCO3 ABG O2 Saturation ABG Base Excess ABG Oxyhemoglobin ABG Sodium ABG Chloride ABG Glucose Oxyhemoglobin Carboxyhemoglobin Sodium Potassium Chloride Carbon Dioxide BUN Creatinine Glucose POC Glucose 132 H 169 H 242 H Hemoglobin A1c Magnesium Ferritin AST ALT Alkaline Phosphatase Lactate Dehydrogenase C-Reactive Protein Total Protein Albumin Arterial Blood Glucose Coronavirus (PCR) 07/07/21 07/08/21 07/08/21 21:41 08:09 12:20 WBC MCV MCH MCHC RDW Lymph % (Auto) [place]on % (Auto) Eos % (Auto) Lymph # (Auto) [place]on # (Auto) Eos # (Auto) Baso # (Auto) Seg Neutrophils % Seg Neuts % (Manual) Lymphocytes % (Manual) Seg Neutrophils # Seg Neutrophils # Man Lymphocytes # (Manual) D-Dimer ABG pH POC ABG pCO2 POC ABG pO2 ABG pO2 ABG HCO3 ABG O2 Saturation ABG Base Excess ABG Oxyhemoglobin ABG Sodium ABG Chloride ABG Glucose Oxyhemoglobin Carboxyhemoglobin Sodium Potassium Chloride Carbon Dioxide BUN Creatinine Glucose POC Glucose 128 H 132 H 179 H Hemoglobin A1c Magnesium Ferritin AST ALT Alkaline Phosphatase Lactate Dehydrogenase C-Reactive Protein Total Protein Albumin Arterial Blood Glucose Coronavirus (PCR) 07/08/21 07/08/21 07/08/21 16:37 21:45 22:44 WBC MCV MCH MCHC RDW Lymph % (Auto) [place]on % (Auto) Eos % (Auto) Lymph # (Auto) [place]on # (Auto) Eos # (Auto) Baso # (Auto) Seg Neutrophils % Seg Neuts % (Manual) Lymphocytes % (Manual) Seg Neutrophils # Seg Neutrophils # Man Lymphocytes # (Manual) D-Dimer ABG pH POC ABG pCO2 POC ABG pO2 ABG pO2 ABG HCO3 ABG O2 Saturation ABG Base Excess ABG Oxyhemoglobin ABG Sodium ABG Chloride ABG Glucose Oxyhemoglobin Carboxyhemoglobin Sodium Potassium Chloride Carbon Dioxide BUN Creatinine Glucose POC Glucose 192 H 51 L 137 H Hemoglobin A1c Magnesium Ferritin AST ALT Alkaline Phosphatase Lactate Dehydrogenase C-Reactive Protein Total Protein Albumin Arterial Blood Glucose Coronavirus (PCR) 07/09/21 07/09/21 07/09/21 04:45 04:45 04:45 WBC MCV MCH MCHC RDW 18.3 H Lymph % (Auto) [place]ickson % (Auto) Eos % (Auto) Lymph # (Auto) Dickson # (Auto) Eos # (Auto) Baso # (Auto) Seg Neutrophils % Seg Neuts % (Manual) 82.0 H Lymphocytes % (Manual) 13.0 L Seg Neutrophils # Seg Neutrophils # Man 7.8 H Lymphocytes # (Manual) D-Dimer 638.35 H ABG pH POC ABG pCO2 POC ABG pO2 ABG pO2 ABG HCO3 ABG O2 Saturation ABG Base Excess ABG Oxyhemoglobin ABG Sodium ABG Chloride ABG Glucose Oxyhemoglobin Carboxyhemoglobin Sodium Potassium Chloride 96.9 L Carbon Dioxide 35 H BUN Creatinine 0.2 L Glucose 135 H POC Glucose Hemoglobin A1c Magnesium Ferritin AST ALT Alkaline Phosphatase Lactate Dehydrogenase C-Reactive Protein 4.30 H Total Protein Albumin Arterial Blood Glucose Coronavirus (PCR) 07/09/21 07/09/21 07/09/21 05:19 07:36 11:16 WBC MCV MCH MCHC RDW Lymph % (Auto) [place]on % (Auto) Eos % (Auto) Lymph # (Auto) [place]on # (Auto) Eos # (Auto) Baso # (Auto) Seg Neutrophils % Seg Neuts % (Manual) Lymphocytes % (Manual) Seg Neutrophils # Seg Neutrophils # Man Lymphocytes # (Manual) D-Dimer ABG pH POC ABG pCO2 POC ABG pO2 ABG pO2 ABG HCO3 ABG O2 Saturation ABG Base Excess ABG Oxyhemoglobin ABG Sodium ABG Chloride ABG Glucose Oxyhemoglobin Carboxyhemoglobin Sodium Potassium Chloride Carbon Dioxide BUN Creatinine Glucose POC Glucose 135 H 148 H 212 H Hemoglobin A1c Magnesium Ferritin AST ALT Alkaline Phosphatase Lactate Dehydrogenase C-Reactive Protein Total Protein Albumin Arterial Blood Glucose Coronavirus (PCR) 07/09/21 07/09/21 07/10/21 15:21 21:12 05:40 WBC MCV MCH MCHC RDW Lymph % (Auto) [place]on % (Auto) Eos % (Auto) Lymph # (Auto) Dickson # (Auto) Eos # (Auto) Baso # (Auto) Seg Neutrophils % Seg Neuts % (Manual) Lymphocytes % (Manual) Seg Neutrophils # Seg Neutrophils # Man Lymphocytes # (Manual) D-Dimer ABG pH POC ABG pCO2 POC ABG pO2 ABG pO2 ABG HCO3 ABG O2 Saturation ABG Base Excess ABG Oxyhemoglobin ABG Sodium ABG Chloride ABG Glucose Oxyhemoglobin Carboxyhemoglobin Sodium Potassium 3.3 L Chloride 95.1 L Carbon Dioxide 39 H BUN Creatinine 0.2 L Glucose 122 H POC Glucose 128 H 196 H Hemoglobin A1c Magnesium Ferritin AST ALT Alkaline Phosphatase Lactate Dehydrogenase C-Reactive Protein Total Protein Albumin Arterial Blood Glucose Coronavirus (PCR) 07/10/21 07/10/21 07/10/21 07:38 11:15 16:29 WBC MCV MCH MCHC RDW Lymph % (Auto) [place]ickson % (Auto) Eos % (Auto) Lymph # (Auto) Dickson # (Auto) Eos # (Auto) Baso # (Auto) Seg Neutrophils % Seg Neuts % (Manual) Lymphocytes % (Manual) Seg Neutrophils # Seg Neutrophils # Man Lymphocytes # (Manual) D-Dimer ABG pH POC ABG pCO2 POC ABG pO2 ABG pO2 ABG HCO3 ABG O2 Saturation ABG Base Excess ABG Oxyhemoglobin ABG Sodium ABG Chloride ABG Glucose Oxyhemoglobin Carboxyhemoglobin Sodium Potassium Chloride Carbon Dioxide BUN Creatinine Glucose POC Glucose 128 H 175 H 174 H Hemoglobin A1c Magnesium Ferritin AST ALT Alkaline Phosphatase Lactate Dehydrogenase C-Reactive Protein Total Protein Albumin Arterial Blood Glucose Coronavirus (PCR) 07/10/21 07/11/21 07/11/21 20:49 05:50 12:08 WBC MCV MCH MCHC RDW Lymph % (Auto) Dickson % (Auto) Eos % (Auto) Lymph # (Auto) Dickson # (Auto) Eos # (Auto) Baso # (Auto) Seg Neutrophils % Seg Neuts % (Manual) Lymphocytes % (Manual) Seg Neutrophils # Seg Neutrophils # Man Lymphocytes # (Manual) D-Dimer ABG pH POC ABG pCO2 POC ABG pO2 ABG pO2 ABG HCO3 ABG O2 Saturation ABG Base Excess ABG Oxyhemoglobin ABG Sodium ABG Chloride ABG Glucose Oxyhemoglobin Carboxyhemoglobin Sodium Potassium Chloride 97.3 L Carbon Dioxide 34 H BUN Creatinine 0.2 L Glucose 109 H POC Glucose 142 H 220 H Hemoglobin A1c Magnesium Ferritin AST ALT Alkaline Phosphatase Lactate Dehydrogenase C-Reactive Protein Total Protein Albumin Arterial Blood Glucose Coronavirus (PCR) 07/11/21 07/11/21 07/12/21 17:09 21:55 07:36 WBC MCV MCH MCHC RDW Lymph % (Auto) Dickson % (Auto) Eos % (Auto) Lymph # (Auto) Dickson # (Auto) Eos # (Auto) Baso # (Auto) Seg Neutrophils % Seg Neuts % (Manual) Lymphocytes % (Manual) Seg Neutrophils # Seg Neutrophils # Man Lymphocytes # (Manual) D-Dimer ABG pH POC ABG pCO2 POC ABG pO2 ABG pO2 ABG HCO3 ABG O2 Saturation ABG Base Excess ABG Oxyhemoglobin ABG Sodium ABG Chloride ABG Glucose Oxyhemoglobin Carboxyhemoglobin Sodium Potassium Chloride Carbon Dioxide BUN Creatinine Glucose POC Glucose 219 H 124 H 114 H Hemoglobin A1c Magnesium Ferritin AST ALT Alkaline Phosphatase Lactate Dehydrogenase C-Reactive Protein Total Protein Albumin Arterial Blood Glucose Coronavirus (PCR) 07/12/21 07/12/21 07/12/21 11:08 15:43 22:20 WBC MCV MCH MCHC RDW Lymph % (Auto) Dickson % (Auto) Eos % (Auto) Lymph # (Auto) Dickson # (Auto) Eos # (Auto) Baso # (Auto) Seg Neutrophils % Seg Neuts % (Manual) Lymphocytes % (Manual) Seg Neutrophils # Seg Neutrophils # Man Lymphocytes # (Manual) D-Dimer ABG pH POC ABG pCO2 POC ABG pO2 ABG pO2 ABG HCO3 ABG O2 Saturation ABG Base Excess ABG Oxyhemoglobin ABG Sodium ABG Chloride ABG Glucose Oxyhemoglobin Carboxyhemoglobin Sodium Potassium Chloride Carbon Dioxide BUN Creatinine Glucose POC Glucose 195 H 276 H 189 H Hemoglobin A1c Magnesium Ferritin AST ALT Alkaline Phosphatase Lactate Dehydrogenase C-Reactive Protein Total Protein Albumin Arterial Blood Glucose Coronavirus (PCR) 07/13/21 07/13/21 07/13/21 08:01 08:08 10:17 WBC MCV MCH MCHC RDW Lymph % (Auto) [place]on % (Auto) Eos % (Auto) Lymph # (Auto) Dickson # (Auto) Eos # (Auto) Baso # (Auto) Seg Neutrophils % Seg Neuts % (Manual) Lymphocytes % (Manual) Seg Neutrophils # Seg Neutrophils # Man Lymphocytes # (Manual) D-Dimer ABG pH POC ABG pCO2 POC ABG pO2 ABG pO2 ABG HCO3 ABG O2 Saturation ABG Base Excess ABG Oxyhemoglobin ABG Sodium ABG Chloride ABG Glucose Oxyhemoglobin Carboxyhemoglobin Sodium Potassium Chloride 94.4 L Carbon Dioxide 34 H BUN Creatinine 0.3 L Glucose 149 H POC Glucose 132 H 265 H Hemoglobin A1c Magnesium Ferritin AST ALT Alkaline Phosphatase Lactate Dehydrogenase C-Reactive Protein Total Protein Albumin Arterial Blood Glucose Coronavirus (PCR) 07/13/21 07/13/21 07/14/21 17:58 21:41 07:34 WBC MCV MCH MCHC RDW Lymph % (Auto) Dickson % (Auto) Eos % (Auto) Lymph # (Auto) Dickson # (Auto) Eos # (Auto) Baso # (Auto) Seg Neutrophils % Seg Neuts % (Manual) Lymphocytes % (Manual) Seg Neutrophils # Seg Neutrophils # Man Lymphocytes # (Manual) D-Dimer ABG pH POC ABG pCO2 POC ABG pO2 ABG pO2 ABG HCO3 ABG O2 Saturation ABG Base Excess ABG Oxyhemoglobin ABG Sodium ABG Chloride ABG Glucose Oxyhemoglobin Carboxyhemoglobin Sodium Potassium Chloride Carbon Dioxide BUN Creatinine Glucose POC Glucose 217 H 223 H 116 H Hemoglobin A1c Magnesium Ferritin AST ALT Alkaline Phosphatase Lactate Dehydrogenase C-Reactive Protein Total Protein Albumin Arterial Blood Glucose Coronavirus (PCR) 07/14/21 07/14/21 07/14/21 10:50 17:33 20:51 WBC MCV MCH MCHC RDW Lymph % (Auto) Dickson % (Auto) Eos % (Auto) Lymph # (Auto) Dickson # (Auto) Eos # (Auto) Baso # (Auto) Seg Neutrophils % Seg Neuts % (Manual) Lymphocytes % (Manual) Seg Neutrophils # Seg Neutrophils # Man Lymphocytes # (Manual) D-Dimer ABG pH POC ABG pCO2 POC ABG pO2 ABG pO2 ABG HCO3 ABG O2 Saturation ABG Base Excess ABG Oxyhemoglobin ABG Sodium ABG Chloride ABG Glucose Oxyhemoglobin Carboxyhemoglobin Sodium Potassium Chloride Carbon Dioxide BUN Creatinine Glucose POC Glucose 191 H 173 H 132 H Hemoglobin A1c Magnesium Ferritin AST ALT Alkaline Phosphatase Lactate Dehydrogenase C-Reactive Protein Total Protein Albumin Arterial Blood Glucose Coronavirus (PCR) 07/15/21 07/15/21 07/15/21 04:00 07:59 12:31 WBC MCV MCH MCHC RDW Lymph % (Auto) Dickson % (Auto) Eos % (Auto) Lymph # (Auto) Dickson # (Auto) Eos # (Auto) Baso # (Auto) Seg Neutrophils % Seg Neuts % (Manual) Lymphocytes % (Manual) Seg Neutrophils # Seg Neutrophils # Man Lymphocytes # (Manual) D-Dimer ABG pH POC ABG pCO2 POC ABG pO2 ABG pO2 ABG HCO3 ABG O2 Saturation ABG Base Excess ABG Oxyhemoglobin ABG Sodium ABG Chloride ABG Glucose Oxyhemoglobin Carboxyhemoglobin Sodium Potassium Chloride 96.0 L Carbon Dioxide 32 H BUN Creatinine 0.3 L Glucose 208 H POC Glucose 117 H 195 H Hemoglobin A1c Magnesium Ferritin AST ALT Alkaline Phosphatase Lactate Dehydrogenase C-Reactive Protein Total Protein Albumin Arterial Blood Glucose Coronavirus (PCR) 07/15/21 07/15/21 07/16/21 18:00 20:57 04:40 WBC MCV MCH MCHC RDW 17.1 H Lymph % (Auto) Dickson % (Auto) Eos % (Auto) Lymph # (Auto) Dickson # (Auto) Eos # (Auto) Baso # (Auto) Seg Neutrophils % Seg Neuts % (Manual) Lymphocytes % (Manual) Seg Neutrophils # Seg Neutrophils # Man Lymphocytes # (Manual) D-Dimer ABG pH POC ABG pCO2 POC ABG pO2 ABG pO2 ABG HCO3 ABG O2 Saturation ABG Base Excess ABG Oxyhemoglobin ABG Sodium ABG Chloride ABG Glucose Oxyhemoglobin Carboxyhemoglobin Sodium Potassium Chloride Carbon Dioxide BUN Creatinine Glucose POC Glucose 217 H 111 H Hemoglobin A1c Magnesium Ferritin AST ALT Alkaline Phosphatase Lactate Dehydrogenase C-Reactive Protein Total Protein Albumin Arterial Blood Glucose Coronavirus (PCR) 07/16/21 07/16/21 07/16/21 04:40 07:08 11:11 WBC MCV MCH MCHC RDW Lymph % (Auto) Dickson % (Auto) Eos % (Auto) Lymph # (Auto) Dickson # (Auto) Eos # (Auto) Baso # (Auto) Seg Neutrophils % Seg Neuts % (Manual) Lymphocytes % (Manual) Seg Neutrophils # Seg Neutrophils # Man Lymphocytes # (Manual) D-Dimer ABG pH POC ABG pCO2 POC ABG pO2 ABG pO2 ABG HCO3 ABG O2 Saturation ABG Base Excess ABG Oxyhemoglobin ABG Sodium ABG Chloride ABG Glucose Oxyhemoglobin Carboxyhemoglobin Sodium Potassium 3.4 L Chloride 94.6 L Carbon Dioxide 36 H BUN Creatinine < 0.2 L Glucose 101 H POC Glucose 118 H 184 H Hemoglobin A1c Magnesium Ferritin AST ALT Alkaline Phosphatase Lactate Dehydrogenase C-Reactive Protein Total Protein Albumin Arterial Blood Glucose Coronavirus (PCR) 07/16/21 07/16/21 07/17/21 17:29 22:01 08:10 WBC MCV MCH MCHC RDW Lymph % (Auto) Dickson % (Auto) Eos % (Auto) Lymph # (Auto) Dickson # (Auto) Eos # (Auto) Baso # (Auto) Seg Neutrophils % Seg Neuts % (Manual) Lymphocytes % (Manual) Seg Neutrophils # Seg Neutrophils # Man Lymphocytes # (Manual) D-Dimer ABG pH POC ABG pCO2 POC ABG pO2 ABG pO2 ABG HCO3 ABG O2 Saturation ABG Base Excess ABG Oxyhemoglobin ABG Sodium ABG Chloride ABG Glucose Oxyhemoglobin Carboxyhemoglobin Sodium Potassium Chloride Carbon Dioxide BUN Creatinine Glucose POC Glucose 200 H 147 H 118 H Hemoglobin A1c Magnesium Ferritin AST ALT Alkaline Phosphatase Lactate Dehydrogenase C-Reactive Protein Total Protein Albumin Arterial Blood Glucose Coronavirus (PCR) 07/17/21 07/17/21 07/17/21 11:38 16:24 21:13 WBC MCV MCH MCHC RDW Lymph % (Auto) Dickson % (Auto) Eos % (Auto) Lymph # (Auto) Dickson # (Auto) Eos # (Auto) Baso # (Auto) Seg Neutrophils % Seg Neuts % (Manual) Lymphocytes % (Manual) Seg Neutrophils # Seg Neutrophils # Man Lymphocytes # (Manual) D-Dimer ABG pH POC ABG pCO2 POC ABG pO2 ABG pO2 ABG HCO3 ABG O2 Saturation ABG Base Excess ABG Oxyhemoglobin ABG Sodium ABG Chloride ABG Glucose Oxyhemoglobin Carboxyhemoglobin Sodium Potassium Chloride Carbon Dioxide BUN Creatinine Glucose POC Glucose 151 H 268 H 115 H Hemoglobin A1c Magnesium Ferritin AST ALT Alkaline Phosphatase Lactate Dehydrogenase C-Reactive Protein Total Protein Albumin Arterial Blood Glucose Coronavirus (PCR) 07/18/21 07/18/21 07/18/21 07:58 12:29 20:24 WBC MCV MCH MCHC RDW Lymph % (Auto) Dickson % (Auto) Eos % (Auto) Lymph # (Auto) Dickson # (Auto) Eos # (Auto) Baso # (Auto) Seg Neutrophils % Seg Neuts % (Manual) Lymphocytes % (Manual) Seg Neutrophils # Seg Neutrophils # Man Lymphocytes # (Manual) D-Dimer ABG pH POC ABG pCO2 POC ABG pO2 ABG pO2 ABG HCO3 ABG O2 Saturation ABG Base Excess ABG Oxyhemoglobin ABG Sodium ABG Chloride ABG Glucose Oxyhemoglobin Carboxyhemoglobin Sodium Potassium Chloride Carbon Dioxide BUN Creatinine Glucose POC Glucose 135 H 139 H 130 H Hemoglobin A1c Magnesium Ferritin AST ALT Alkaline Phosphatase Lactate Dehydrogenase C-Reactive Protein Total Protein Albumin Arterial Blood Glucose Coronavirus (PCR) 07/19/21 07/19/21 07/19/21 06:55 06:55 07:54 WBC 14.5 H MCV MCH MCHC RDW 17.3 H Lymph % (Auto) 9.6 L Dickson % (Auto) Eos % (Auto) Lymph # (Auto) Dickson # (Auto) Eos # (Auto) 0.6 H Baso # (Auto) Seg Neutrophils % 80.3 H Seg Neuts % (Manual) Lymphocytes % (Manual) Seg Neutrophils # 11.7 H Seg Neutrophils # Man Lymphocytes # (Manual) D-Dimer ABG pH POC ABG pCO2 67.9 H POC ABG pO2 131.0 H ABG pO2 ABG HCO3 ABG O2 Saturation ABG Base Excess ABG Oxyhemoglobin ABG Sodium ABG Chloride 97.0 L ABG Glucose 133 H Oxyhemoglobin Carboxyhemoglobin Sodium Potassium Chloride 95.3 L Carbon Dioxide 35 H BUN Creatinine < 0.2 L Glucose 138 H POC Glucose Hemoglobin A1c Magnesium Ferritin AST ALT Alkaline Phosphatase Lactate Dehydrogenase C-Reactive Protein Total Protein Albumin Arterial Blood Glucose 133 H Coronavirus (PCR) 07/19/21 07/19/21 07/19/21 08:10 11:43 17:04 WBC MCV MCH MCHC RDW Lymph % (Auto) Dickson % (Auto) Eos % (Auto) Lymph # (Auto) Dickson # (Auto) Eos # (Auto) Baso # (Auto) Seg Neutrophils % Seg Neuts % (Manual) Lymphocytes % (Manual) Seg Neutrophils # Seg Neutrophils # Man Lymphocytes # (Manual) D-Dimer ABG pH POC ABG pCO2 POC ABG pO2 ABG pO2 ABG HCO3 ABG O2 Saturation ABG Base Excess ABG Oxyhemoglobin ABG Sodium ABG Chloride ABG Glucose Oxyhemoglobin Carboxyhemoglobin Sodium Potassium Chloride Carbon Dioxide BUN Creatinine Glucose POC Glucose 129 H 126 H 108 H Hemoglobin A1c Magnesium Ferritin AST ALT Alkaline Phosphatase Lactate Dehydrogenase C-Reactive Protein Total Protein Albumin Arterial Blood Glucose Coronavirus (PCR) 07/19/21 07/20/21 07/20/21 21:10 04:00 04:00 WBC MCV MCH MCHC RDW 17.0 H Lymph % (Auto) Dickson % (Auto) 8.9 H Eos % (Auto) 6.3 H Lymph # (Auto) Dickson # (Auto) 0.9 H Eos # (Auto) 0.6 H Baso # (Auto) Seg Neutrophils % 70.2 H Seg Neuts % (Manual) Lymphocytes % (Manual) Seg Neutrophils # Seg Neutrophils # Man Lymphocytes # (Manual) D-Dimer ABG pH POC ABG pCO2 POC ABG pO2 ABG pO2 ABG HCO3 ABG O2 Saturation ABG Base Excess ABG Oxyhemoglobin ABG Sodium ABG Chloride ABG Glucose Oxyhemoglobin Carboxyhemoglobin Sodium Potassium Chloride 96.7 L Carbon Dioxide 36 H BUN Creatinine 0.2 L Glucose 102 H POC Glucose 109 H Hemoglobin A1c Magnesium Ferritin AST ALT Alkaline Phosphatase Lactate Dehydrogenase C-Reactive Protein Total Protein Albumin 3.2 L Arterial Blood Glucose Coronavirus (PCR) 07/20/21 07/20/21 07/20/21 11:15 15:34 17:01 WBC MCV MCH MCHC RDW Lymph % (Auto) Dickson % (Auto) Eos % (Auto) Lymph # (Auto) Dickson # (Auto) Eos # (Auto) Baso # (Auto) Seg Neutrophils % Seg Neuts % (Manual) Lymphocytes % (Manual) Seg Neutrophils # Seg Neutrophils # Man Lymphocytes # (Manual) D-Dimer ABG pH POC ABG pCO2 POC ABG pO2 ABG pO2 ABG HCO3 ABG O2 Saturation ABG Base Excess ABG Oxyhemoglobin ABG Sodium ABG Chloride ABG Glucose Oxyhemoglobin Carboxyhemoglobin Sodium Potassium Chloride Carbon Dioxide BUN Creatinine Glucose POC Glucose 109 H 152 H 125 H Hemoglobin A1c Magnesium Ferritin AST ALT Alkaline Phosphatase Lactate Dehydrogenase C-Reactive Protein Total Protein Albumin Arterial Blood Glucose Coronavirus (PCR) 07/20/21 07/21/21 07/21/21 21:00 04:48 04:48 WBC 12.8 H MCV MCH MCHC RDW 16.8 H Lymph % (Auto) 9.3 L Dickson % (Auto) Eos % (Auto) Lymph # (Auto) Dickson # (Auto) 0.9 H Eos # (Auto) Baso # (Auto) Seg Neutrophils % 81.1 H Seg Neuts % (Manual) Lymphocytes % (Manual) Seg Neutrophils # 10.4 H Seg Neutrophils # Man Lymphocytes # (Manual) D-Dimer ABG pH POC ABG pCO2 POC ABG pO2 ABG pO2 ABG HCO3 ABG O2 Saturation ABG Base Excess ABG Oxyhemoglobin ABG Sodium ABG Chloride ABG Glucose Oxyhemoglobin Carboxyhemoglobin Sodium Potassium Chloride 95.4 L Carbon Dioxide 33 H BUN 6 L Creatinine < 0.2 L Glucose 155 H POC Glucose 211 H Hemoglobin A1c Magnesium 1.60 L Ferritin AST ALT Alkaline Phosphatase Lactate Dehydrogenase C-Reactive Protein Total Protein Albumin Arterial Blood Glucose Coronavirus (PCR) 07/21/21 07/21/21 07/21/21 07:52 11:05 17:01 WBC MCV MCH MCHC RDW Lymph % (Auto) Dickson % (Auto) Eos % (Auto) Lymph # (Auto) Dickson # (Auto) Eos # (Auto) Baso # (Auto) Seg Neutrophils % Seg Neuts % (Manual) Lymphocytes % (Manual) Seg Neutrophils # Seg Neutrophils # Man Lymphocytes # (Manual) D-Dimer ABG pH POC ABG pCO2 POC ABG pO2 ABG pO2 ABG HCO3 ABG O2 Saturation ABG Base Excess ABG Oxyhemoglobin ABG Sodium ABG Chloride ABG Glucose Oxyhemoglobin Carboxyhemoglobin Sodium Potassium Chloride Carbon Dioxide BUN Creatinine Glucose POC Glucose 116 H 207 H 133 H Hemoglobin A1c Magnesium Ferritin AST ALT Alkaline Phosphatase Lactate Dehydrogenase C-Reactive Protein Total Protein Albumin Arterial Blood Glucose Coronavirus (PCR) 07/21/21 07/22/21 07/22/21 21:17 07:55 07:55 WBC MCV MCH MCHC RDW 16.5 H Lymph % (Auto) Dickson % (Auto) 8.6 H Eos % (Auto) Lymph # (Auto) Dickson # (Auto) Eos # (Auto) Baso # (Auto) Seg Neutrophils % 72.3 H Seg Neuts % (Manual) Lymphocytes % (Manual) Seg Neutrophils # Seg Neutrophils # Man Lymphocytes # (Manual) D-Dimer ABG pH POC ABG pCO2 POC ABG pO2 ABG pO2 ABG HCO3 ABG O2 Saturation ABG Base Excess ABG Oxyhemoglobin ABG Sodium ABG Chloride ABG Glucose Oxyhemoglobin Carboxyhemoglobin Sodium Potassium Chloride 94.6 L Carbon Dioxide 42 H* D BUN 5 L Creatinine < 0.2 L Glucose POC Glucose 152 H Hemoglobin A1c Magnesium Ferritin AST ALT Alkaline Phosphatase Lactate Dehydrogenase C-Reactive Protein Total Protein Albumin Arterial Blood Glucose Coronavirus (PCR) 07/22/21 07/22/21 07/22/21 11:25 12:05 15:40 WBC MCV MCH MCHC RDW Lymph % (Auto) Dickson % (Auto) Eos % (Auto) Lymph # (Auto) Dickson # (Auto) Eos # (Auto) Baso # (Auto) Seg Neutrophils % Seg Neuts % (Manual) Lymphocytes % (Manual) Seg Neutrophils # Seg Neutrophils # Man Lymphocytes # (Manual) D-Dimer ABG pH 7.338 L POC ABG pCO2 POC ABG pO2 ABG pO2 66.1 L ABG HCO3 45.0 H ABG O2 Saturation 94.2 L ABG Base Excess 15.2 H ABG Oxyhemoglobin ABG Sodium ABG Chloride ABG Glucose Oxyhemoglobin 91.9 L Carboxyhemoglobin Sodium Potassium Chloride Carbon Dioxide BUN Creatinine Glucose POC Glucose 146 H 219 H Hemoglobin A1c Magnesium Ferritin AST ALT Alkaline Phosphatase Lactate Dehydrogenase C-Reactive Protein Total Protein Albumin Arterial Blood Glucose Coronavirus (PCR) 07/22/21 07/23/21 07/23/21 21:26 04:35 04:35 WBC MCV 98 H MCH MCHC RDW 16.2 H Lymph % (Auto) 7.9 L Dickson % (Auto) Eos % (Auto) Lymph # (Auto) 0.9 L [place]ickson # (Auto) Eos # (Auto) Baso # (Auto) Seg Neutrophils % 85.3 H Seg Neuts % (Manual) Lymphocytes % (Manual) Seg Neutrophils # 9.2 H Seg Neutrophils # Man Lymphocytes # (Manual) D-Dimer ABG pH POC ABG pCO2 POC ABG pO2 ABG pO2 ABG HCO3 ABG O2 Saturation ABG Base Excess ABG Oxyhemoglobin ABG Sodium ABG Chloride ABG Glucose Oxyhemoglobin Carboxyhemoglobin Sodium Potassium Chloride 93.9 L Carbon Dioxide 44 H* BUN Creatinine < 0.2 L Glucose 149 H POC Glucose 131 H Hemoglobin A1c Magnesium Ferritin AST ALT Alkaline Phosphatase Lactate Dehydrogenase C-Reactive Protein Total Protein Albumin Arterial Blood Glucose Coronavirus (PCR) 07/23/21 07/23/21 07/23/21 07:20 11:34 16:11 WBC MCV MCH MCHC RDW Lymph % (Auto) Dickson % (Auto) Eos % (Auto) Lymph # (Auto) Dickson # (Auto) Eos # (Auto) Baso # (Auto) Seg Neutrophils % Seg Neuts % (Manual) Lymphocytes % (Manual) Seg Neutrophils # Seg Neutrophils # Man Lymphocytes # (Manual) D-Dimer ABG pH POC ABG pCO2 POC ABG pO2 ABG pO2 ABG HCO3 ABG O2 Saturation ABG Base Excess ABG Oxyhemoglobin ABG Sodium ABG Chloride ABG Glucose Oxyhemoglobin Carboxyhemoglobin Sodium Potassium Chloride Carbon Dioxide BUN Creatinine Glucose POC Glucose 116 H 172 H 110 H Hemoglobin A1c Magnesium Ferritin AST ALT Alkaline Phosphatase Lactate Dehydrogenase C-Reactive Protein Total Protein Albumin Arterial Blood Glucose Coronavirus (PCR) 07/23/21 07/23/21 07/24/21 18:11 21:33 04:10 WBC MCV MCH MCHC RDW Lymph % (Auto) Dickson % (Auto) Eos % (Auto) Lymph # (Auto) Dickson # (Auto) Eos # (Auto) Baso # (Auto) Seg Neutrophils % Seg Neuts % (Manual) Lymphocytes % (Manual) Seg Neutrophils # Seg Neutrophils # Man Lymphocytes # (Manual) D-Dimer ABG pH POC ABG pCO2 78.3 H POC ABG pO2 80.7 L ABG pO2 ABG HCO3 ABG O2 Saturation ABG Base Excess ABG Oxyhemoglobin ABG Sodium 134.9 L ABG Chloride 89.0 L ABG Glucose 200 H Oxyhemoglobin Carboxyhemoglobin Sodium Potassium 3.5 L D Chloride 92.4 L Carbon Dioxide 42 H* BUN Creatinine < 0.2 L Glucose 123 H POC Glucose 108 H Hemoglobin A1c Magnesium Ferritin AST ALT Alkaline Phosphatase Lactate Dehydrogenase C-Reactive Protein Total Protein Albumin Arterial Blood Glucose 200 H Coronavirus (PCR) 07/24/21 07/24/21 07/24/21 11:01 16:56 22:06 WBC MCV MCH MCHC RDW Lymph % (Auto) Dickson % (Auto) Eos % (Auto) Lymph # (Auto) Dickson # (Auto) Eos # (Auto) Baso # (Auto) Seg Neutrophils % Seg Neuts % (Manual) Lymphocytes % (Manual) Seg Neutrophils # Seg Neutrophils # Man Lymphocytes # (Manual) D-Dimer ABG pH POC ABG pCO2 POC ABG pO2 ABG pO2 ABG HCO3 ABG O2 Saturation ABG Base Excess ABG Oxyhemoglobin ABG Sodium ABG Chloride ABG Glucose Oxyhemoglobin Carboxyhemoglobin Sodium Potassium Chloride Carbon Dioxide BUN Creatinine Glucose POC Glucose 171 H 111 H 136 H Hemoglobin A1c Magnesium Ferritin AST ALT Alkaline Phosphatase Lactate Dehydrogenase C-Reactive Protein Total Protein Albumin Arterial Blood Glucose Coronavirus (PCR) 07/25/21 07/25/21 07/25/21 07:40 10:59 11:58 WBC MCV MCH MCHC RDW Lymph % (Auto) Dickson % (Auto) Eos % (Auto) Lymph # (Auto) Dickson # (Auto) Eos # (Auto) Baso # (Auto) Seg Neutrophils % Seg Neuts % (Manual) Lymphocytes % (Manual) Seg Neutrophils # Seg Neutrophils # Man Lymphocytes # (Manual) D-Dimer ABG pH POC ABG pCO2 POC ABG pO2 ABG pO2 ABG HCO3 ABG O2 Saturation ABG Base Excess ABG Oxyhemoglobin ABG Sodium ABG Chloride ABG Glucose Oxyhemoglobin Carboxyhemoglobin Sodium Potassium Chloride 88.6 L Carbon Dioxide 43 H* BUN Creatinine 0.2 L Glucose 180 H POC Glucose 120 H 153 H Hemoglobin A1c Magnesium Ferritin AST ALT Alkaline Phosphatase Lactate Dehydrogenase C-Reactive Protein Total Protein Albumin Arterial Blood Glucose Coronavirus (PCR) 07/25/21 07/25/21 07/26/21 16:03 20:18 09:56 WBC MCV MCH MCHC RDW Lymph % (Auto) Dickson % (Auto) Eos % (Auto) Lymph # (Auto) Dickson # (Auto) Eos # (Auto) Baso # (Auto) Seg Neutrophils % Seg Neuts % (Manual) Lymphocytes % (Manual) Seg Neutrophils # Seg Neutrophils # Man Lymphocytes # (Manual) D-Dimer ABG pH POC ABG pCO2 POC ABG pO2 ABG pO2 ABG HCO3 ABG O2 Saturation ABG Base Excess ABG Oxyhemoglobin ABG Sodium ABG Chloride ABG Glucose Oxyhemoglobin Carboxyhemoglobin Sodium Potassium Chloride 91.3 L Carbon Dioxide 45 H* BUN Creatinine < 0.2 L Glucose 128 H POC Glucose 143 H 133 H Hemoglobin A1c Magnesium Ferritin AST ALT Alkaline Phosphatase Lactate Dehydrogenase C-Reactive Protein Total Protein Albumin 3.2 L Arterial Blood Glucose Coronavirus (PCR) 07/26/21 07/26/21 07/27/21 17:56 21:24 07:10 WBC MCV MCH MCHC RDW Lymph % (Auto) Dickson % (Auto) Eos % (Auto) Lymph # (Auto) Dickson # (Auto) Eos # (Auto) Baso # (Auto) Seg Neutrophils % Seg Neuts % (Manual) Lymphocytes % (Manual) Seg Neutrophils # Seg Neutrophils # Man Lymphocytes # (Manual) D-Dimer ABG pH POC ABG pCO2 POC ABG pO2 ABG pO2 ABG HCO3 ABG O2 Saturation ABG Base Excess ABG Oxyhemoglobin ABG Sodium ABG Chloride ABG Glucose Oxyhemoglobin Carboxyhemoglobin Sodium Potassium Chloride Carbon Dioxide BUN Creatinine Glucose POC Glucose 170 H 122 H 119 H Hemoglobin A1c Magnesium Ferritin AST ALT Alkaline Phosphatase Lactate Dehydrogenase C-Reactive Protein Total Protein Albumin Arterial Blood Glucose Coronavirus (PCR) 07/27/21 07/27/21 07/28/21 11:44 21:31 07:30 WBC MCV MCH MCHC RDW Lymph % (Auto) Dickson % (Auto) Eos % (Auto) Lymph # (Auto) Dickson # (Auto) Eos # (Auto) Baso # (Auto) Seg Neutrophils % Seg Neuts % (Manual) Lymphocytes % (Manual) Seg Neutrophils # Seg Neutrophils # Man Lymphocytes # (Manual) D-Dimer ABG pH POC ABG pCO2 POC ABG pO2 ABG pO2 ABG HCO3 ABG O2 Saturation ABG Base Excess ABG Oxyhemoglobin ABG Sodium ABG Chloride ABG Glucose Oxyhemoglobin Carboxyhemoglobin Sodium Potassium 3.4 L D Chloride 91.4 L Carbon Dioxide 39 H BUN Creatinine < 0.2 L Glucose 140 H POC Glucose 176 H 162 H Hemoglobin A1c Magnesium Ferritin AST ALT Alkaline Phosphatase Lactate Dehydrogenase C-Reactive Protein Total Protein Albumin Arterial Blood Glucose Coronavirus (PCR) 07/28/21 07/28/21 07/28/21 08:43 12:25 16:40 WBC MCV MCH MCHC RDW Lymph % (Auto) Dickson % (Auto) Eos % (Auto) Lymph # (Auto) Dickson # (Auto) Eos # (Auto) Baso # (Auto) Seg Neutrophils % Seg Neuts % (Manual) Lymphocytes % (Manual) Seg Neutrophils # Seg Neutrophils # Man Lymphocytes # (Manual) D-Dimer ABG pH POC ABG pCO2 POC ABG pO2 ABG pO2 ABG HCO3 ABG O2 Saturation ABG Base Excess ABG Oxyhemoglobin ABG Sodium ABG Chloride ABG Glucose Oxyhemoglobin Carboxyhemoglobin Sodium Potassium Chloride Carbon Dioxide BUN Creatinine Glucose POC Glucose 122 H 162 H 234 H Hemoglobin A1c Magnesium Ferritin AST ALT Alkaline Phosphatase Lactate Dehydrogenase C-Reactive Protein Total Protein Albumin Arterial Blood Glucose Coronavirus (PCR) 07/28/21 07/29/21 07/29/21 21:27 04:40 09:51 WBC MCV MCH MCHC RDW Lymph % (Auto) Dickson % (Auto) Eos % (Auto) Lymph # (Auto) Dickson # (Auto) Eos # (Auto) Baso # (Auto) Seg Neutrophils % Seg Neuts % (Manual) Lymphocytes % (Manual) Seg Neutrophils # Seg Neutrophils # Man Lymphocytes # (Manual) D-Dimer ABG pH POC ABG pCO2 POC ABG pO2 ABG pO2 ABG HCO3 ABG O2 Saturation ABG Base Excess ABG Oxyhemoglobin ABG Sodium ABG Chloride ABG Glucose Oxyhemoglobin Carboxyhemoglobin Sodium Potassium 3.4 L Chloride 92.3 L Carbon Dioxide 40 H BUN Creatinine < 0.2 L Glucose 125 H POC Glucose 155 H 112 H Hemoglobin A1c Magnesium Ferritin AST ALT Alkaline Phosphatase Lactate Dehydrogenase C-Reactive Protein Total Protein Albumin Arterial Blood Glucose Coronavirus (PCR) 07/29/21 07/29/21 07/29/21 12:03 16:39 21:28 WBC MCV MCH MCHC RDW Lymph % (Auto) Dickson % (Auto) Eos % (Auto) Lymph # (Auto) Dickson # (Auto) Eos # (Auto) Baso # (Auto) Seg Neutrophils % Seg Neuts % (Manual) Lymphocytes % (Manual) Seg Neutrophils # Seg Neutrophils # Man Lymphocytes # (Manual) D-Dimer ABG pH POC ABG pCO2 POC ABG pO2 ABG pO2 ABG HCO3 ABG O2 Saturation ABG Base Excess ABG Oxyhemoglobin ABG Sodium ABG Chloride ABG Glucose Oxyhemoglobin Carboxyhemoglobin Sodium Potassium Chloride Carbon Dioxide BUN Creatinine Glucose POC Glucose 188 H 141 H 130 H Hemoglobin A1c Magnesium Ferritin AST ALT Alkaline Phosphatase Lactate Dehydrogenase C-Reactive Protein Total Protein Albumin Arterial Blood Glucose Coronavirus (PCR) 07/30/21 07/30/21 07/30/21 08:37 11:56 22:25 WBC MCV MCH MCHC RDW Lymph % (Auto) Dickson % (Auto) Eos % (Auto) Lymph # (Auto) Dickson # (Auto) Eos # (Auto) Baso # (Auto) Seg Neutrophils % Seg Neuts % (Manual) Lymphocytes % (Manual) Seg Neutrophils # Seg Neutrophils # Man Lymphocytes # (Manual) D-Dimer ABG pH POC ABG pCO2 POC ABG pO2 ABG pO2 ABG HCO3 ABG O2 Saturation ABG Base Excess ABG Oxyhemoglobin ABG Sodium ABG Chloride ABG Glucose Oxyhemoglobin Carboxyhemoglobin Sodium Potassium Chloride Carbon Dioxide BUN Creatinine Glucose POC Glucose 133 H 156 H 118 H Hemoglobin A1c Magnesium Ferritin AST ALT Alkaline Phosphatase Lactate Dehydrogenase C-Reactive Protein Total Protein Albumin Arterial Blood Glucose Coronavirus (PCR) 07/31/21 07/31/21 07/31/21 06:43 11:55 16:39 WBC MCV MCH MCHC RDW Lymph % (Auto) Dickson % (Auto) Eos % (Auto) Lymph # (Auto) Dickson # (Auto) Eos # (Auto) Baso # (Auto) Seg Neutrophils % Seg Neuts % (Manual) Lymphocytes % (Manual) Seg Neutrophils # Seg Neutrophils # Man Lymphocytes # (Manual) D-Dimer ABG pH POC ABG pCO2 POC ABG pO2 ABG pO2 ABG HCO3 ABG O2 Saturation ABG Base Excess ABG Oxyhemoglobin ABG Sodium ABG Chloride ABG Glucose Oxyhemoglobin Carboxyhemoglobin Sodium Potassium Chloride Carbon Dioxide BUN Creatinine Glucose POC Glucose 115 H 114 H 185 H Hemoglobin A1c Magnesium Ferritin AST ALT Alkaline Phosphatase Lactate Dehydrogenase C-Reactive Protein Total Protein Albumin Arterial Blood Glucose Coronavirus (PCR) 07/31/21 08/01/21 08/01/21 23:22 11:35 15:34 WBC MCV MCH MCHC RDW Lymph % (Auto) Dickson % (Auto) Eos % (Auto) Lymph # (Auto) Dickson # (Auto) Eos # (Auto) Baso # (Auto) Seg Neutrophils % Seg Neuts % (Manual) Lymphocytes % (Manual) Seg Neutrophils # Seg Neutrophils # Man Lymphocytes # (Manual) D-Dimer ABG pH POC ABG pCO2 POC ABG pO2 ABG pO2 ABG HCO3 ABG O2 Saturation ABG Base Excess ABG Oxyhemoglobin ABG Sodium ABG Chloride ABG Glucose Oxyhemoglobin Carboxyhemoglobin Sodium Potassium Chloride Carbon Dioxide BUN Creatinine Glucose POC Glucose 213 H 122 H 142 H Hemoglobin A1c Magnesium Ferritin AST ALT Alkaline Phosphatase Lactate Dehydrogenase C-Reactive Protein Total Protein Albumin Arterial Blood Glucose Coronavirus (PCR) 08/01/21 08/02/21 08/02/21 22:15 07:41 11:58 WBC MCV MCH MCHC RDW Lymph % (Auto) Dickson % (Auto) Eos % (Auto) Lymph # (Auto) Dickson # (Auto) Eos # (Auto) Baso # (Auto) Seg Neutrophils % Seg Neuts % (Manual) Lymphocytes % (Manual) Seg Neutrophils # Seg Neutrophils # Man Lymphocytes # (Manual) D-Dimer ABG pH POC ABG pCO2 POC ABG pO2 ABG pO2 ABG HCO3 ABG O2 Saturation ABG Base Excess ABG Oxyhemoglobin ABG Sodium ABG Chloride ABG Glucose Oxyhemoglobin Carboxyhemoglobin Sodium Potassium Chloride Carbon Dioxide BUN Creatinine Glucose POC Glucose 121 H 109 H 136 H Hemoglobin A1c Magnesium Ferritin AST ALT Alkaline Phosphatase Lactate Dehydrogenase C-Reactive Protein Total Protein Albumin Arterial Blood Glucose Coronavirus (PCR) 08/02/21 08/03/21 08/03/21 21:19 07:47 11:18 WBC MCV MCH MCHC RDW Lymph % (Auto) Dickson % (Auto) Eos % (Auto) Lymph # (Auto) Dickson # (Auto) Eos # (Auto) Baso # (Auto) Seg Neutrophils % Seg Neuts % (Manual) Lymphocytes % (Manual) Seg Neutrophils # Seg Neutrophils # Man Lymphocytes # (Manual) D-Dimer ABG pH POC ABG pCO2 POC ABG pO2 ABG pO2 ABG HCO3 ABG O2 Saturation ABG Base Excess ABG Oxyhemoglobin ABG Sodium ABG Chloride ABG Glucose Oxyhemoglobin Carboxyhemoglobin Sodium Potassium Chloride Carbon Dioxide BUN Creatinine Glucose POC Glucose 159 H 111 H 202 H Hemoglobin A1c Magnesium Ferritin AST ALT Alkaline Phosphatase Lactate Dehydrogenase C-Reactive Protein Total Protein Albumin Arterial Blood Glucose Coronavirus (PCR) 08/03/21 08/03/21 08/04/21 16:47 21:26 07:57 WBC MCV MCH MCHC RDW Lymph % (Auto) Dickson % (Auto) Eos % (Auto) Lymph # (Auto) Dickson # (Auto) Eos # (Auto) Baso # (Auto) Seg Neutrophils % Seg Neuts % (Manual) Lymphocytes % (Manual) Seg Neutrophils # Seg Neutrophils # Man Lymphocytes # (Manual) D-Dimer ABG pH POC ABG pCO2 POC ABG pO2 ABG pO2 ABG HCO3 ABG O2 Saturation ABG Base Excess ABG Oxyhemoglobin ABG Sodium ABG Chloride ABG Glucose Oxyhemoglobin Carboxyhemoglobin Sodium Potassium Chloride Carbon Dioxide BUN Creatinine Glucose POC Glucose 133 H 148 H 129 H Hemoglobin A1c Magnesium Ferritin AST ALT Alkaline Phosphatase Lactate Dehydrogenase C-Reactive Protein Total Protein Albumin Arterial Blood Glucose Coronavirus (PCR) 08/04/21 08/04/21 08/04/21 08:05 11:42 16:53 WBC MCV MCH MCHC RDW Lymph % (Auto) Dickson % (Auto) Eos % (Auto) Lymph # (Auto) Dickson # (Auto) Eos # (Auto) Baso # (Auto) Seg Neutrophils % Seg Neuts % (Manual) Lymphocytes % (Manual) Seg Neutrophils # Seg Neutrophils # Man Lymphocytes # (Manual) D-Dimer ABG pH POC ABG pCO2 POC ABG pO2 ABG pO2 ABG HCO3 ABG O2 Saturation ABG Base Excess ABG Oxyhemoglobin ABG Sodium ABG Chloride ABG Glucose Oxyhemoglobin Carboxyhemoglobin Sodium Potassium Chloride Carbon Dioxide BUN Creatinine Glucose POC Glucose 145 H 187 H 112 H Hemoglobin A1c Magnesium Ferritin AST ALT Alkaline Phosphatase Lactate Dehydrogenase C-Reactive Protein Total Protein Albumin Arterial Blood Glucose Coronavirus (PCR) 08/04/21 08/05/21 08/05/21 21:27 07:35 11:19 WBC MCV MCH MCHC RDW Lymph % (Auto) Dickson % (Auto) Eos % (Auto) Lymph # (Auto) [place] # (Auto) Eos # (Auto) Baso # (Auto) Seg Neutrophils % Seg Neuts % (Manual) Lymphocytes % (Manual) Seg Neutrophils # Seg Neutrophils # Man Lymphocytes # (Manual) D-Dimer ABG pH POC ABG pCO2 POC ABG pO2 ABG pO2 ABG HCO3 ABG O2 Saturation ABG Base Excess ABG Oxyhemoglobin ABG Sodium ABG Chloride ABG Glucose Oxyhemoglobin Carboxyhemoglobin Sodium Potassium Chloride Carbon Dioxide BUN Creatinine Glucose POC Glucose 189 H 146 H 244 H Hemoglobin A1c Magnesium Ferritin AST ALT Alkaline Phosphatase Lactate Dehydrogenase C-Reactive Protein Total Protein Albumin Arterial Blood Glucose Coronavirus (PCR) 08/05/21 08/06/21 08/06/21 22:16 07:29 11:16 WBC MCV MCH MCHC RDW Lymph % (Auto) Dickson % (Auto) Eos % (Auto) Lymph # (Auto) [place]on # (Auto) Eos # (Auto) Baso # (Auto) Seg Neutrophils % Seg Neuts % (Manual) Lymphocytes % (Manual) Seg Neutrophils # Seg Neutrophils # Man Lymphocytes # (Manual) D-Dimer ABG pH POC ABG pCO2 POC ABG pO2 ABG pO2 ABG HCO3 ABG O2 Saturation ABG Base Excess ABG Oxyhemoglobin ABG Sodium ABG Chloride ABG Glucose Oxyhemoglobin Carboxyhemoglobin Sodium Potassium Chloride Carbon Dioxide BUN Creatinine Glucose POC Glucose 122 H 128 H 228 H Hemoglobin A1c Magnesium Ferritin AST ALT Alkaline Phosphatase Lactate Dehydrogenase C-Reactive Protein Total Protein Albumin Arterial Blood Glucose Coronavirus (PCR) 08/06/21 08/07/21 08/07/21 21:13 07:17 11:54 WBC MCV MCH MCHC RDW Lymph % (Auto) [place]on % (Auto) Eos % (Auto) Lymph # (Auto) [place]on # (Auto) Eos # (Auto) Baso # (Auto) Seg Neutrophils % Seg Neuts % (Manual) Lymphocytes % (Manual) Seg Neutrophils # Seg Neutrophils # Man Lymphocytes # (Manual) D-Dimer ABG pH POC ABG pCO2 POC ABG pO2 ABG pO2 ABG HCO3 ABG O2 Saturation ABG Base Excess ABG Oxyhemoglobin ABG Sodium ABG Chloride ABG Glucose Oxyhemoglobin Carboxyhemoglobin Sodium Potassium Chloride Carbon Dioxide BUN Creatinine Glucose POC Glucose 198 H 134 H 107 H Hemoglobin A1c Magnesium Ferritin AST ALT Alkaline Phosphatase Lactate Dehydrogenase C-Reactive Protein Total Protein Albumin Arterial Blood Glucose Coronavirus (PCR) 08/07/21 08/07/21 08/08/21 16:26 21:15 04:51 WBC MCV MCH MCHC RDW Lymph % (Auto) [place]on % (Auto) Eos % (Auto) Lymph # (Auto) [place]on # (Auto) Eos # (Auto) Baso # (Auto) Seg Neutrophils % Seg Neuts % (Manual) Lymphocytes % (Manual) Seg Neutrophils # Seg Neutrophils # Man Lymphocytes # (Manual) D-Dimer ABG pH POC ABG pCO2 POC ABG pO2 ABG pO2 ABG HCO3 ABG O2 Saturation ABG Base Excess ABG Oxyhemoglobin ABG Sodium ABG Chloride ABG Glucose Oxyhemoglobin Carboxyhemoglobin Sodium Potassium Chloride 92.9 L Carbon Dioxide 39 H BUN Creatinine < 0.2 L Glucose 105 H POC Glucose 144 H 228 H Hemoglobin A1c Magnesium Ferritin AST ALT Alkaline Phosphatase Lactate Dehydrogenase C-Reactive Protein Total Protein Albumin Arterial Blood Glucose Coronavirus (PCR) 08/08/21 08/08/21 08/08/21 11:40 17:09 21:22 WBC MCV MCH MCHC RDW Lymph % (Auto) [place]ickson % (Auto) Eos % (Auto) Lymph # (Auto) [place]on # (Auto) Eos # (Auto) Baso # (Auto) Seg Neutrophils % Seg Neuts % (Manual) Lymphocytes % (Manual) Seg Neutrophils # Seg Neutrophils # Man Lymphocytes # (Manual) D-Dimer ABG pH POC ABG pCO2 POC ABG pO2 ABG pO2 ABG HCO3 ABG O2 Saturation ABG Base Excess ABG Oxyhemoglobin ABG Sodium ABG Chloride ABG Glucose Oxyhemoglobin Carboxyhemoglobin Sodium Potassium Chloride Carbon Dioxide BUN Creatinine Glucose POC Glucose 137 H 137 H 152 H Hemoglobin A1c Magnesium Ferritin AST ALT Alkaline Phosphatase Lactate Dehydrogenase C-Reactive Protein Total Protein Albumin Arterial Blood Glucose Coronavirus (PCR) 08/09/21 08/09/21 08/09/21 07:42 12:26 16:41 WBC MCV MCH MCHC RDW Lymph % (Auto) [place]on % (Auto) Eos % (Auto) Lymph # (Auto) [place] # (Auto) Eos # (Auto) Baso # (Auto) Seg Neutrophils % Seg Neuts % (Manual) Lymphocytes % (Manual) Seg Neutrophils # Seg Neutrophils # Man Lymphocytes # (Manual) D-Dimer ABG pH POC ABG pCO2 POC ABG pO2 ABG pO2 ABG HCO3 ABG O2 Saturation ABG Base Excess ABG Oxyhemoglobin ABG Sodium ABG Chloride ABG Glucose Oxyhemoglobin Carboxyhemoglobin Sodium Potassium Chloride Carbon Dioxide BUN Creatinine Glucose POC Glucose 120 H 132 H 116 H Hemoglobin A1c Magnesium Ferritin AST ALT Alkaline Phosphatase Lactate Dehydrogenase C-Reactive Protein Total Protein Albumin Arterial Blood Glucose Coronavirus (PCR) 08/09/21 08/10/21 08/10/21 21:13 07:41 11:33 WBC MCV MCH MCHC RDW Lymph % (Auto) [place] % (Auto) Eos % (Auto) Lymph # (Auto) [place]on # (Auto) Eos # (Auto) Baso # (Auto) Seg Neutrophils % Seg Neuts % (Manual) Lymphocytes % (Manual) Seg Neutrophils # Seg Neutrophils # Man Lymphocytes # (Manual) D-Dimer ABG pH POC ABG pCO2 POC ABG pO2 ABG pO2 ABG HCO3 ABG O2 Saturation ABG Base Excess ABG Oxyhemoglobin ABG Sodium ABG Chloride ABG Glucose Oxyhemoglobin Carboxyhemoglobin Sodium Potassium Chloride Carbon Dioxide BUN Creatinine Glucose POC Glucose 205 H 125 H 125 H Hemoglobin A1c Magnesium Ferritin AST ALT Alkaline Phosphatase Lactate Dehydrogenase C-Reactive Protein Total Protein Albumin Arterial Blood Glucose Coronavirus (PCR) 08/10/21 08/10/21 08/11/21 15:21 21:07 07:22 WBC MCV MCH MCHC RDW Lymph % (Auto) [place] % (Auto) Eos % (Auto) Lymph # (Auto) [place] # (Auto) Eos # (Auto) Baso # (Auto) Seg Neutrophils % Seg Neuts % (Manual) Lymphocytes % (Manual) Seg Neutrophils # Seg Neutrophils # Man Lymphocytes # (Manual) D-Dimer ABG pH POC ABG pCO2 POC ABG pO2 ABG pO2 ABG HCO3 ABG O2 Saturation ABG Base Excess ABG Oxyhemoglobin ABG Sodium ABG Chloride ABG Glucose Oxyhemoglobin Carboxyhemoglobin Sodium Potassium Chloride Carbon Dioxide BUN Creatinine Glucose POC Glucose 188 H 177 H 123 H Hemoglobin A1c Magnesium Ferritin AST ALT Alkaline Phosphatase Lactate Dehydrogenase C-Reactive Protein Total Protein Albumin Arterial Blood Glucose Coronavirus (PCR) 08/11/21 08/11/21 08/11/21 11:42 15:43 21:34 WBC MCV MCH MCHC RDW Lymph % (Auto) [place] % (Auto) Eos % (Auto) Lymph # (Auto) [place]on # (Auto) Eos # (Auto) Baso # (Auto) Seg Neutrophils % Seg Neuts % (Manual) Lymphocytes % (Manual) Seg Neutrophils # Seg Neutrophils # Man Lymphocytes # (Manual) D-Dimer ABG pH POC ABG pCO2 POC ABG pO2 ABG pO2 ABG HCO3 ABG O2 Saturation ABG Base Excess ABG Oxyhemoglobin ABG Sodium ABG Chloride ABG Glucose Oxyhemoglobin Carboxyhemoglobin Sodium Potassium Chloride Carbon Dioxide BUN Creatinine Glucose POC Glucose 182 H 182 H 112 H Hemoglobin A1c Magnesium Ferritin AST ALT Alkaline Phosphatase Lactate Dehydrogenase C-Reactive Protein Total Protein Albumin Arterial Blood Glucose Coronavirus (PCR) 08/12/21 08/12/21 08/12/21 07:49 12:03 17:06 WBC MCV MCH MCHC RDW Lymph % (Auto) [place] % (Auto) Eos % (Auto) Lymph # (Auto) [place] # (Auto) Eos # (Auto) Baso # (Auto) Seg Neutrophils % Seg Neuts % (Manual) Lymphocytes % (Manual) Seg Neutrophils # Seg Neutrophils # Man Lymphocytes # (Manual) D-Dimer ABG pH POC ABG pCO2 POC ABG pO2 ABG pO2 ABG HCO3 ABG O2 Saturation ABG Base Excess ABG Oxyhemoglobin ABG Sodium ABG Chloride ABG Glucose Oxyhemoglobin Carboxyhemoglobin Sodium Potassium Chloride Carbon Dioxide BUN Creatinine Glucose POC Glucose 151 H 154 H 106 H Hemoglobin A1c Magnesium Ferritin AST ALT Alkaline Phosphatase Lactate Dehydrogenase C-Reactive Protein Total Protein Albumin Arterial Blood Glucose Coronavirus (PCR) 08/12/21 08/13/21 08/13/21 21:50 07:31 11:27 WBC MCV MCH MCHC RDW Lymph % (Auto) [place] % (Auto) Eos % (Auto) Lymph # (Auto) [place] # (Auto) Eos # (Auto) Baso # (Auto) Seg Neutrophils % Seg Neuts % (Manual) Lymphocytes % (Manual) Seg Neutrophils # Seg Neutrophils # Man Lymphocytes # (Manual) D-Dimer ABG pH POC ABG pCO2 POC ABG pO2 ABG pO2 ABG HCO3 ABG O2 Saturation ABG Base Excess ABG Oxyhemoglobin ABG Sodium ABG Chloride ABG Glucose Oxyhemoglobin Carboxyhemoglobin Sodium Potassium Chloride Carbon Dioxide BUN Creatinine Glucose POC Glucose 160 H 118 H 177 H Hemoglobin A1c Magnesium Ferritin AST ALT Alkaline Phosphatase Lactate Dehydrogenase C-Reactive Protein Total Protein Albumin Arterial Blood Glucose Coronavirus (PCR) 08/13/21 08/13/21 08/14/21 16:21 20:59 07:16 WBC MCV MCH MCHC RDW Lymph % (Auto) [place] % (Auto) Eos % (Auto) Lymph # (Auto) [place] # (Auto) Eos # (Auto) Baso # (Auto) Seg Neutrophils % Seg Neuts % (Manual) Lymphocytes % (Manual) Seg Neutrophils # Seg Neutrophils # Man Lymphocytes # (Manual) D-Dimer ABG pH POC ABG pCO2 POC ABG pO2 ABG pO2 ABG HCO3 ABG O2 Saturation ABG Base Excess ABG Oxyhemoglobin ABG Sodium ABG Chloride ABG Glucose Oxyhemoglobin Carboxyhemoglobin Sodium Potassium Chloride Carbon Dioxide BUN Creatinine Glucose POC Glucose 116 H 140 H 109 H Hemoglobin A1c Magnesium Ferritin AST ALT Alkaline Phosphatase Lactate Dehydrogenase C-Reactive Protein Total Protein Albumin Arterial Blood Glucose Coronavirus (PCR) 08/14/21 08/14/21 08/14/21 11:13 16:30 21:11 WBC MCV MCH MCHC RDW Lymph % (Auto) [place] % (Auto) Eos % (Auto) Lymph # (Auto) [place] # (Auto) Eos # (Auto) Baso # (Auto) Seg Neutrophils % Seg Neuts % (Manual) Lymphocytes % (Manual) Seg Neutrophils # Seg Neutrophils # Man Lymphocytes # (Manual) D-Dimer ABG pH POC ABG pCO2 POC ABG pO2 ABG pO2 ABG HCO3 ABG O2 Saturation ABG Base Excess ABG Oxyhemoglobin ABG Sodium ABG Chloride ABG Glucose Oxyhemoglobin Carboxyhemoglobin Sodium Potassium Chloride Carbon Dioxide BUN Creatinine Glucose POC Glucose 176 H 117 H 222 H Hemoglobin A1c Magnesium Ferritin AST ALT Alkaline Phosphatase Lactate Dehydrogenase C-Reactive Protein Total Protein Albumin Arterial Blood Glucose Coronavirus (PCR) 08/15/21 08/15/21 08/15/21 07:10 11:11 16:25 WBC MCV MCH MCHC RDW Lymph % (Auto) [place] % (Auto) Eos % (Auto) Lymph # (Auto) [place] # (Auto) Eos # (Auto) Baso # (Auto) Seg Neutrophils % Seg Neuts % (Manual) Lymphocytes % (Manual) Seg Neutrophils # Seg Neutrophils # Man Lymphocytes # (Manual) D-Dimer ABG pH POC ABG pCO2 POC ABG pO2 ABG pO2 ABG HCO3 ABG O2 Saturation ABG Base Excess ABG Oxyhemoglobin ABG Sodium ABG Chloride ABG Glucose Oxyhemoglobin Carboxyhemoglobin Sodium Potassium Chloride Carbon Dioxide BUN Creatinine Glucose POC Glucose 165 H 225 H 157 H Hemoglobin A1c Magnesium Ferritin AST ALT Alkaline Phosphatase Lactate Dehydrogenase C-Reactive Protein Total Protein Albumin Arterial Blood Glucose Coronavirus (PCR) 08/16/21 08/16/21 08/16/21 07:29 11:14 21:03 WBC MCV MCH MCHC RDW Lymph % (Auto) [place] % (Auto) Eos % (Auto) Lymph # (Auto) [place] # (Auto) Eos # (Auto) Baso # (Auto) Seg Neutrophils % Seg Neuts % (Manual) Lymphocytes % (Manual) Seg Neutrophils # Seg Neutrophils # Man Lymphocytes # (Manual) D-Dimer ABG pH POC ABG pCO2 POC ABG pO2 ABG pO2 ABG HCO3 ABG O2 Saturation ABG Base Excess ABG Oxyhemoglobin ABG Sodium ABG Chloride ABG Glucose Oxyhemoglobin Carboxyhemoglobin Sodium Potassium Chloride Carbon Dioxide BUN Creatinine Glucose POC Glucose 177 H 254 H 291 H Hemoglobin A1c Magnesium Ferritin AST ALT Alkaline Phosphatase Lactate Dehydrogenase C-Reactive Protein Total Protein Albumin Arterial Blood Glucose Coronavirus (PCR) 08/17/21 08/17/21 08/17/21 07:50 12:18 17:35 WBC MCV MCH MCHC RDW Lymph % (Auto) [place] % (Auto) Eos % (Auto) Lymph # (Auto) [place] # (Auto) Eos # (Auto) Baso # (Auto) Seg Neutrophils % Seg Neuts % (Manual) Lymphocytes % (Manual) Seg Neutrophils # Seg Neutrophils # Man Lymphocytes # (Manual) D-Dimer ABG pH POC ABG pCO2 POC ABG pO2 ABG pO2 ABG HCO3 ABG O2 Saturation ABG Base Excess ABG Oxyhemoglobin ABG Sodium ABG Chloride ABG Glucose Oxyhemoglobin Carboxyhemoglobin Sodium Potassium Chloride Carbon Dioxide BUN Creatinine Glucose POC Glucose 171 H 236 H 273 H Hemoglobin A1c Magnesium Ferritin AST ALT Alkaline Phosphatase Lactate Dehydrogenase C-Reactive Protein Total Protein Albumin Arterial Blood Glucose Coronavirus (PCR) 08/17/21 08/18/21 08/18/21 21:36 07:27 11:29 WBC MCV MCH MCHC RDW Lymph % (Auto) [place] % (Auto) Eos % (Auto) Lymph # (Auto) [place] # (Auto) Eos # (Auto) Baso # (Auto) Seg Neutrophils % Seg Neuts % (Manual) Lymphocytes % (Manual) Seg Neutrophils # Seg Neutrophils # Man Lymphocytes # (Manual) D-Dimer ABG pH POC ABG pCO2 POC ABG pO2 ABG pO2 ABG HCO3 ABG O2 Saturation ABG Base Excess ABG Oxyhemoglobin ABG Sodium ABG Chloride ABG Glucose Oxyhemoglobin Carboxyhemoglobin Sodium Potassium Chloride Carbon Dioxide BUN Creatinine Glucose POC Glucose 181 H 179 H 210 H Hemoglobin A1c Magnesium Ferritin AST ALT Alkaline Phosphatase Lactate Dehydrogenase C-Reactive Protein Total Protein Albumin Arterial Blood Glucose Coronavirus (PCR) 08/18/21 08/18/21 08/19/21 17:03 21:14 07:17 WBC MCV MCH MCHC RDW Lymph % (Auto) [place] % (Auto) Eos % (Auto) Lymph # (Auto) [place] # (Auto) Eos # (Auto) Baso # (Auto) Seg Neutrophils % Seg Neuts % (Manual) Lymphocytes % (Manual) Seg Neutrophils # Seg Neutrophils # Man Lymphocytes # (Manual) D-Dimer ABG pH POC ABG pCO2 POC ABG pO2 ABG pO2 ABG HCO3 ABG O2 Saturation ABG Base Excess ABG Oxyhemoglobin ABG Sodium ABG Chloride ABG Glucose Oxyhemoglobin Carboxyhemoglobin Sodium Potassium Chloride Carbon Dioxide BUN Creatinine Glucose POC Glucose 255 H 212 H 193 H Hemoglobin A1c Magnesium Ferritin AST ALT Alkaline Phosphatase Lactate Dehydrogenase C-Reactive Protein Total Protein Albumin Arterial Blood Glucose Coronavirus (PCR) 12/03/0408/19/21 08/19/21 11:23 16:20 21:39 WBC MCV MCH MCHC RDW Lymph % (Auto) [place] % (Auto) Eos % (Auto) Lymph # (Auto) [place] # (Auto) Eos # (Auto) Baso # (Auto) Seg Neutrophils % Seg Neuts % (Manual) Lymphocytes % (Manual) Seg Neutrophils # Seg Neutrophils # Man Lymphocytes # (Manual) D-Dimer ABG pH POC ABG pCO2 POC ABG pO2 ABG pO2 ABG HCO3 ABG O2 Saturation ABG Base Excess ABG Oxyhemoglobin ABG Sodium ABG Chloride ABG Glucose Oxyhemoglobin Carboxyhemoglobin Sodium Potassium Chloride Carbon Dioxide BUN Creatinine Glucose POC Glucose 256 H 173 H 223 H Hemoglobin A1c Magnesium Ferritin AST ALT Alkaline Phosphatase Lactate Dehydrogenase C-Reactive Protein Total Protein Albumin Arterial Blood Glucose Coronavirus (PCR) 08/20/21 08/20/21 08/20/21 07:52 11:18 15:32 WBC MCV MCH MCHC RDW Lymph % (Auto) [place]on % (Auto) Eos % (Auto) Lymph # (Auto) [place]on # (Auto) Eos # (Auto) Baso # (Auto) Seg Neutrophils % Seg Neuts % (Manual) Lymphocytes % (Manual) Seg Neutrophils # Seg Neutrophils # Man Lymphocytes # (Manual) D-Dimer ABG pH POC ABG pCO2 POC ABG pO2 ABG pO2 ABG HCO3 ABG O2 Saturation ABG Base Excess ABG Oxyhemoglobin ABG Sodium ABG Chloride ABG Glucose Oxyhemoglobin Carboxyhemoglobin Sodium Potassium Chloride Carbon Dioxide BUN Creatinine Glucose POC Glucose 147 H 280 H 243 H Hemoglobin A1c Magnesium Ferritin AST ALT Alkaline Phosphatase Lactate Dehydrogenase C-Reactive Protein Total Protein Albumin Arterial Blood Glucose Coronavirus (PCR) 08/20/21 08/21/21 08/21/21 22:15 08:26 11:58 WBC MCV MCH MCHC RDW Lymph % (Auto) [place] % (Auto) Eos % (Auto) Lymph # (Auto) [place]on # (Auto) Eos # (Auto) Baso # (Auto) Seg Neutrophils % Seg Neuts % (Manual) Lymphocytes % (Manual) Seg Neutrophils # Seg Neutrophils # Man Lymphocytes # (Manual) D-Dimer ABG pH POC ABG pCO2 POC ABG pO2 ABG pO2 ABG HCO3 ABG O2 Saturation ABG Base Excess ABG Oxyhemoglobin ABG Sodium ABG Chloride ABG Glucose Oxyhemoglobin Carboxyhemoglobin Sodium Potassium Chloride Carbon Dioxide BUN Creatinine Glucose POC Glucose 215 H 165 H 241 H Hemoglobin A1c Magnesium Ferritin AST ALT Alkaline Phosphatase Lactate Dehydrogenase C-Reactive Protein Total Protein Albumin Arterial Blood Glucose Coronavirus (PCR) 08/21/21 08/21/21 08/22/21 16:56 22:11 07:20 WBC MCV MCH MCHC RDW Lymph % (Auto) [place] % (Auto) Eos % (Auto) Lymph # (Auto) [place]on # (Auto) Eos # (Auto) Baso # (Auto) Seg Neutrophils % Seg Neuts % (Manual) Lymphocytes % (Manual) Seg Neutrophils # Seg Neutrophils # Man Lymphocytes # (Manual) D-Dimer ABG pH POC ABG pCO2 POC ABG pO2 ABG pO2 ABG HCO3 ABG O2 Saturation ABG Base Excess ABG Oxyhemoglobin ABG Sodium ABG Chloride ABG Glucose Oxyhemoglobin Carboxyhemoglobin Sodium Potassium Chloride Carbon Dioxide BUN Creatinine Glucose POC Glucose 276 H 207 H 184 H Hemoglobin A1c Magnesium Ferritin AST ALT Alkaline Phosphatase Lactate Dehydrogenase C-Reactive Protein Total Protein Albumin Arterial Blood Glucose Coronavirus (PCR) 08/22/21 08/22/21 08/22/21 11:32 16:11 20:36 WBC MCV MCH MCHC RDW Lymph % (Auto) [place]on % (Auto) Eos % (Auto) Lymph # (Auto) [place]on # (Auto) Eos # (Auto) Baso # (Auto) Seg Neutrophils % Seg Neuts % (Manual) Lymphocytes % (Manual) Seg Neutrophils # Seg Neutrophils # Man Lymphocytes # (Manual) D-Dimer ABG pH POC ABG pCO2 POC ABG pO2 ABG pO2 ABG HCO3 ABG O2 Saturation ABG Base Excess ABG Oxyhemoglobin ABG Sodium ABG Chloride ABG Glucose Oxyhemoglobin Carboxyhemoglobin Sodium Potassium Chloride Carbon Dioxide BUN Creatinine Glucose POC Glucose 235 H 240 H 207 H Hemoglobin A1c Magnesium Ferritin AST ALT Alkaline Phosphatase Lactate Dehydrogenase C-Reactive Protein Total Protein Albumin Arterial Blood Glucose Coronavirus (PCR) 08/23/21 08/23/21 08/23/21 08:40 12:20 21:53 WBC MCV MCH MCHC RDW Lymph % (Auto) [place]on % (Auto) Eos % (Auto) Lymph # (Auto) [place]on # (Auto) Eos # (Auto) Baso # (Auto) Seg Neutrophils % Seg Neuts % (Manual) Lymphocytes % (Manual) Seg Neutrophils # Seg Neutrophils # Man Lymphocytes # (Manual) D-Dimer ABG pH POC ABG pCO2 POC ABG pO2 ABG pO2 ABG HCO3 ABG O2 Saturation ABG Base Excess ABG Oxyhemoglobin ABG Sodium ABG Chloride ABG Glucose Oxyhemoglobin Carboxyhemoglobin Sodium Potassium Chloride Carbon Dioxide BUN Creatinine Glucose POC Glucose 208 H 259 H 258 H Hemoglobin A1c Magnesium Ferritin AST ALT Alkaline Phosphatase Lactate Dehydrogenase C-Reactive Protein Total Protein Albumin Arterial Blood Glucose Coronavirus (PCR) 08/24/21 08/24/21 08/24/21 07:48 11:25 16:30 WBC MCV MCH MCHC RDW Lymph % (Auto) [place]on % (Auto) Eos % (Auto) Lymph # (Auto) [place]on # (Auto) Eos # (Auto) Baso # (Auto) Seg Neutrophils % Seg Neuts % (Manual) Lymphocytes % (Manual) Seg Neutrophils # Seg Neutrophils # Man Lymphocytes # (Manual) D-Dimer ABG pH POC ABG pCO2 POC ABG pO2 ABG pO2 ABG HCO3 ABG O2 Saturation ABG Base Excess ABG Oxyhemoglobin ABG Sodium ABG Chloride ABG Glucose Oxyhemoglobin Carboxyhemoglobin Sodium Potassium Chloride Carbon Dioxide BUN Creatinine Glucose POC Glucose 189 H 255 H 197 H Hemoglobin A1c Magnesium Ferritin AST ALT Alkaline Phosphatase Lactate Dehydrogenase C-Reactive Protein Total Protein Albumin Arterial Blood Glucose Coronavirus (PCR) 08/24/21 08/25/21 08/25/21 22:12 07:23 11:12 WBC MCV MCH MCHC RDW Lymph % (Auto) [place]on % (Auto) Eos % (Auto) Lymph # (Auto) [place]on # (Auto) Eos # (Auto) Baso # (Auto) Seg Neutrophils % Seg Neuts % (Manual) Lymphocytes % (Manual) Seg Neutrophils # Seg Neutrophils # Man Lymphocytes # (Manual) D-Dimer ABG pH POC ABG pCO2 POC ABG pO2 ABG pO2 ABG HCO3 ABG O2 Saturation ABG Base Excess ABG Oxyhemoglobin ABG Sodium ABG Chloride ABG Glucose Oxyhemoglobin Carboxyhemoglobin Sodium Potassium Chloride Carbon Dioxide BUN Creatinine Glucose POC Glucose 202 H 167 H 227 H Hemoglobin A1c Magnesium Ferritin AST ALT Alkaline Phosphatase Lactate Dehydrogenase C-Reactive Protein Total Protein Albumin Arterial Blood Glucose Coronavirus (PCR) 08/25/21 08/25/21 08/26/21 16:00 22:18 07:37 WBC MCV MCH MCHC RDW Lymph % (Auto) [place]on % (Auto) Eos % (Auto) Lymph # (Auto) [place]on # (Auto) Eos # (Auto) Baso # (Auto) Seg Neutrophils % Seg Neuts % (Manual) Lymphocytes % (Manual) Seg Neutrophils # Seg Neutrophils # Man Lymphocytes # (Manual) D-Dimer ABG pH POC ABG pCO2 POC ABG pO2 ABG pO2 ABG HCO3 ABG O2 Saturation ABG Base Excess ABG Oxyhemoglobin ABG Sodium ABG Chloride ABG Glucose Oxyhemoglobin Carboxyhemoglobin Sodium Potassium Chloride Carbon Dioxide BUN Creatinine Glucose POC Glucose 299 H 250 H 238 H Hemoglobin A1c Magnesium Ferritin AST ALT Alkaline Phosphatase Lactate Dehydrogenase C-Reactive Protein Total Protein Albumin Arterial Blood Glucose Coronavirus (PCR) 08/26/21 10:33 WBC MCV MCH MCHC RDW Lymph % (Auto) [place]ickson % (Auto) Eos % (Auto) Lymph # (Auto) [place]ickson # (Auto) Eos # (Auto) Baso # (Auto) Seg Neutrophils % Seg Neuts % (Manual) Lymphocytes % (Manual) Seg Neutrophils # Seg Neutrophils # Man Lymphocytes # (Manual) D-Dimer ABG pH POC ABG pCO2 POC ABG pO2 ABG pO2 ABG HCO3 ABG O2 Saturation ABG Base Excess ABG Oxyhemoglobin ABG Sodium ABG Chloride ABG Glucose Oxyhemoglobin Carboxyhemoglobin Sodium Potassium Chloride Carbon Dioxide BUN Creatinine Glucose POC Glucose 285 H Hemoglobin A1c Magnesium Ferritin AST ALT Alkaline Phosphatase Lactate Dehydrogenase C-Reactive Protein Total Protein Albumin Arterial Blood Glucose Coronavirus (PCR)
--- NOTE | 2021-08-26 12:04 | XRay Report ---
CHEST 1 VIEW 08/26/2021 11:24 AM INDICATION / CLINICAL INFORMATION: Hypoxemia. COMPARISON: 08/22/2021 FINDINGS: SUPPORT DEVICES: Stable, satisfactory device positioning. HEART / MEDIASTINUM: Stable. LUNGS / PLEURA: Diffuse bilateral airspace disease is slightly improved. No pneumothorax. ADDITIONAL FINDINGS: No significant additional findings. IMPRESSION: 1. Slight improvement in diffuse bilateral airspace disease. Signer Name: Denis Kc MD Signed: 08/26/2021 11:59 AM Workstation Name: [id number]
--- NOTE | 2021-08-26 12:42 | Progress Note ---
Assessment and Plan Assessment and plan: -Acute hypoxic/hypercapneic respiratory failure --Severe ARDS. Suspected possible post Covid pneumonia lung fibrosis. Continues to require high flow nasal cannula oxygen 30 L/50% FiO2/O2 sats 97% refusing BiPAP, on 100% nonrebreather , Wean as tolerated. Maintain SpO2 >88% Steroids resumed on IV Solu-Medrol on 08/16/2021. Will maintain high-dose IV Solu-Medrol at 125 mg every 8 hours X-ray chest 08/22/2021: Extensive bilateral parenchymal disease unchanged Discussed with pulmonology Dr. Merida --Metabolic alkalosis Continue monitoring --Heart failure with preserved ejection fraction -TTE: LVEF 55-60% with diastolic dysfunction -will continue to monitor for signs of fluid overload. -On intermittent diuretics. --COVID-19 infection -Has completed treatment. --Type 2 diabetes -Uncontrolled most likely due to steroid -Continue Lantus to 20 SQ daily. Continue sliding scale insulin. --Anxiety -Stable -continue xanax --DVT prophylaxis -Lovenox 40 daily --Deconditioning PT OT when stable Possible SNF placement at discharge Resolved issues #Sepsis secondary to COVID-19 #Iatrogenic diarrhea #Hypomagnesemia #Hyponatremia #Protein calorie malnutrition #Dysuria #Hypokalemia #Possible UTI --Advanced care planning -Disease education conducted, care plan discussed, diagnoses discussed, prognosis discussed, and patient acknowledges understanding with care plan -Time: +30 minutes --Disposition Plan: Continue medical management Total Time Spent with Patient (Minutes): 35 minutes Brief history and daily hospital course; Admitted on 04/16/2021 50 YO Female with GERD, Obesity, HLD presents to ED for evaluation. Patient r eports "I cannot breathe". Patient states that she has experienced subjective fever, shortness of breath, malaise, body aches, dry cough, and shortness of breath over the past 1 week with progressively worsening symptoms over the same timeframe. EMS was notified and upon arrival the patient was found to be in distress and subsequent transported to [facility] for further care and evaluation of the aforementioned symptoms. The patient was seen and evaluated in the emergency department. All lab and imaging studies reviewed. Patient found to have a pulse oximetry of 86% with exertion on room air which is consistent with acute hypoxemic respiratory failure. Patient with chest x-ray which revealed bilateral pneumonia. Patient admitted to medical floor and initiated him on pneumonia protocol as well as coronavirus protocol. Patient knowledges fever but denies chills, chest pain, palpitation, skin rash, recent ill contacts, or known exposure to COVID-19. Prior admission on 01/21/2017 reviewed. All medication listed at time of admission has been reconciled. Patient is unvaccinated for coronavirus infection. CXR: Bilateral Pneumonia 04/17: Patient seen and examined, still uncomfortable with Hypoxic respiratory failure and on oxygen, will continue to steroids therapy, start patient on Re mdesivir, ID consulted, Pulmonary consult placed. 04/18: Patient seen and examined, she is currently being changed to High flow NC due to worsening HYPOXIA, will transfer to IMCU, Pulmonary and ID following. Will also give a dose of Lasix today. Monitor Inflammatory markers. 04/19: Patient seen and examined still on high flow due to hypoxia. Appears a bit more comfortable today than yesterday. Cough has decreased in frequency. We will continue high dose Dexameathasone to complete 10 days. continue on Remdesivir 200 mg IV q day x 1 followed by 100 mg IV q day x 4 days -Obtain q48-72h inflammatory markers - ferritin, Ddimer, CRP, LDH Will also give lasix daily for the next 3 days and monitor renal function. Family updated. Continue prone positioning as tolerated 04/20: Patient has some desaturation episodes yesterday was placed on BiPAP. Discussed with ICU team for bed availability for patient to be transferred up. Continue prone position as tolerated. 04/21: Patient remains with profound hypoxia secondary to COVID pneumonia. -Continue steroids -Continue remedesir -S/P Actmera 04/22: Patient remains on steroids and remdesivir. ABG shows persistent hypoxia. We will continue current management additional trial of Lasix for the next few days to see if any improvement. Monitor inflammatory markers as needed. Prognosis is guarded remains on high flow 04/23; patient was treated with remdesivir and Actemra. Continue steroid. Patient's prognosis is guarded. 04/24; patient is on steroid. Patient is currently on BiPAP. Prognosis is guarded. Pulmonary is following. Patient was given Lasix and Ativan. 04/25; continue steroid. Patient was on 40 L of high flow oxygen with saturation was 88%. Pulmonary is following. Prognosis is guarded. Patient was given lasix and ativan. 04/26; patient is on BiPAP and Precedex. Prognosis is guarded. 04/27; patient is on BiPAP and Precedex. Patient will finish steroid today and will start on Solu-Medrol tomorrow. Prognosis is guarded. Blood pressure is better today. Hold Lasix. 04/28 patient is on 100 Fio2 via BIPAP. moderately dyspneic, pulmonary note reviewed, lab results reviewed 04/29 no acute events- see systems review above 04/30 no acute events overnight - on airvo today- TPN started -see systems review above 05-01 no acute events overnight- tolerating airvo- see systems review above 05-02 no acute events overnight; tolerating airvo this AM- see systems review above 05/03: Patient remains on full high flow oxygen. No acute events overnight 05/04: Patient remains on BiPAP this morning at 70%. Returning to service Patient initially managed in the ICU and then transfered to the floor 06/25: Patient remains on full oxygen with high flow, encouraged to prone at night time. Spoke to Night nursing staff to ensure assisting the patient Prone. Continue steroid therapy, will discuss with Pulmonary about trying additional lasix. Plan discussed with patient and family. 06/26: Patient already on Lasix daily, Hypokalemia- Replace K. Continue to encourage Proning. Remains on high flow. 06/27: Continue supportive care unfortunately had to go up on her oxygen to 70% FiO2 prognosis remains guarded continue to encourage proning. 06/28: Continue supportive care, Encourage Proning 06/29: Mild hypokalemia noted yesterday will be replaced as it was not corrected yesterday we will recheck BMP in a.m. Continue IV Lasix. Monitor renal function. 06/30: Give additional potassium for better control. Continue supportive care. Continue IV Lasix. Continue to encourage proning again discussed with the patient via language interpreter. He verbalized understanding 07/01: Brief summary patient seen and examined this morning continues to show improvement FiO2 demand down to 45% on 30 L on high flow. Patient is a 50-year-old male who was admitted with COVID-19 today is day 76 of her hospital stay she was initially managed in the ICU and now has been transferred to the floor. She remains on low-dose steroid therapy following completion of remdesivir and recommended steroid. She is encouraged to continue to prone and the nights that she has done this has shown some improvement. She is still probably a long way from being discharged. Intermittent monitoring off electrolytes as she has had some episode of hyponatremia and hypomagnesemia is recommended. She is concerned about puffiness in her face which is likely steroid-induced I have discussed this with her that it will improve following discontinuation of steroid. In the meantime I have held her Lasix as we have been diuresing her for majority of her stay and this should be reevaluated the next few days to see if she will benefit from further diuresis. Pulmonary is on board 08/20: Return to service today. Remains on high flow oxygen, not tolerating weaning, continue current management Currently undergoing management and awaiting for possible home hospice 08/21: Patient still on high flow and NRB, still severely Hypoxic. Continue supportive care. Prognosis guarded. 08/22: Patient seen and examined, she still remains on 50% high flow and also nonrebreather. Per staff she is refusing therapy have provided counseling to her that this will help her improve. She is also awaiting for hospice discharge which case management is working on. Chest x-ray reviewed shows persistent interstitial infiltrates bilaterally. 08/23; remains on high flow nasal cannula oxygen 30 L/50% FiO2/O2 sats 97%, patient refusing BiPAP, will continue high-dose IV Solu-Medrol at 125 mg every 8 hours. Discussed with pulmonary critical Dr. Merida 08/24; patient remains on high flow nasal cannula oxygen 26 L, wean as tolerate d, continue rest of the management including high-dose Solu-Medrol 125 mg every 8 hours 08/25; patient remains on high flow oxygen at 26 L/50% FiO2 saturating 97% 08/26; continue current management. Continue high flow oxygen wean as tolerated. Continue high-dose steroids Consults and recommendations noted and appreciated History Interval history: I have seen and examined the patient today at the bedside in [facility] Patient's chart and medications reviewed Patient remains on high flow nasal cannula oxygen Alert and awake no new complaints Hospitalist Physical - Constitutional Vitals: Temp Pulse Resp BP Pulse Ox 98.6 F 112 H 36 H 133/66 95 08/26/21 08:00 08/26/21 12:08/26/21 12:00 08/26/21 12:00 08/26/21 12:00 General appearance: Present: mild distress, well-nourished, other (Looks tired) - EENT Eyes: Present: PERRL, EOM intact - Neck Neck: Present: supple, normal ROM - Respiratory Respiratory effort: normal Respiratory: bilateral: diminished, rhonchi, negative: rales, wheezing - Cardiovascular Rhythm: regular Heart Sounds: Present: S1 & S2 - Extremities Extremities: no ischemia, No edema - Abdominal General gastrointestinal: soft, non-tender, non-distended, normal bowel sounds - Integumentary Integumentary: Present: clear, warm - Psychiatric Psychiatric: appropriate mood/affect, cooperative - Neurologic Neurologic: CNII-XII intact, moves all extremities Results - Labs CBC & Chem 7: 07/23/21 04:35 08/08/21 04:51 Labs: Laboratory Last Values WBC 10.8 K/mm3 (4.5-11.0) 07/23/21 04:35 RBC 3.84 M/mm3 (3.65-5.03) 07/23/21 04:35 Hgb 12.1 gm/dl (10.1-14.3) 07/23/21 04:35 Hct 37.6 % (30.3-42.9) 07/23/21 04:35 MCV 98 fl (79-97) H 07/23/21 04:35 MCH 32 pg (28-32) 07/23/21 04:35 MCHC 32 % (30-34) 07/23/21 04:35 RDW 16.2 % (13.2-15.2) H 07/23/21 04:35 Plt Count 367 K/mm3 (140-440) 07/23/21 04:35 Lymph % (Auto) 7.9 % (13.4-35.0) L 07/23/21 04:35 [place] % (Auto) 5.6 % (0.0-7.3) 07/23/21 04:35 Eos % (Auto) 0.8 % (0.0-4.3) 07/23/21 04:35 Baso % (Auto) 0.4 % (0.0-1.8) 07/23/21 04:35 Lymph # (Auto) 0.9 K/mm3 (1.2-5.4) L 07/23/21 04:35 [place] # (Auto) 0.6 K/mm3 (0.0-0.8) 07/23/21 04:35 Eos # (Auto) 0.1 K/mm3 (0.0-0.4) 07/23/21 04:35 Baso # (Auto) 0.0 K/mm3 (0.0-0.1) 07/23/21 04:35 Add Manual Diff Complete 07/09/21 04:45 Total Counted 100 07/09/21 04:45 Seg Neutrophils % 85.3 % (40.0-70.0) H 07/23/21 04:35 Seg Neuts % (Manual) 82.0 % (40.0-70.0) H 07/09/21 04:45 Band Neutrophils % 1.0 % 05/12/21 04:05 Lymphocytes % (Manual) 13.0 % (13.4-35.0) L 07/09/21 04:45 Monocytes % (Manual) 3.0 % (0.0-7.3) 07/09/21 04:45 Eosinophils % (Manual) 2.0 % (0.0-4.3) 07/09/21 04:45 Nucleated RBC % Not Reportable 07/09/21 04:45 Seg Neutrophils # 9.2 K/mm3 (1.8-7.7) H 07/23/21 04:35 Seg Neutrophils # Man 7.8 K/mm3 (1.8-7.7) H 07/09/21 04:45 Band Neutrophils # 0.0 K/mm3 07/09/21 04:45 Lymphocytes # (Manual) 1.2 K/mm3 (1.2-5.4) 07/09/21 04:45 Abs React Lymphs (Man) 0.0 K/mm3 07/09/21 04:45 Monocytes # (Manual) 0.3 K/mm3 (0.0-0.8) 07/09/21 04:45 Eosinophils # (Manual) 0.2 K/mm3 (0.0-0.4) 07/09/21 04:45 Basophils # (Manual) 0.0 K/mm3 (0.0-0.1) 07/09/21 04:45 Metamyelocytes # 0.0 K/mm3 07/09/21 04:45 Myelocytes # 0.0 K/mm3 07/09/21 04:45 Promyelocytes # 0.0 K/mm3 07/09/21 04:45 Blast Cells # 0.0 K/mm3 07/09/21 04:45 WBC Morphology Not Reportable 07/09/21 04:45 Hypersegmented Neuts Not Reportable 07/09/21 04:45 Hyposegmented Neuts Not Reportable 07/09/21 04:45 Hypogranular Neuts Not Reportable 07/09/21 04:45 Smudge Cells Not Reportable 07/09/21 04:45 Toxic Granulation Not Reportable 07/09/21 04:45 Toxic Vacuolation Not Reportable 07/09/21 04:45 Dohle Bodies Not Reportable 07/09/21 04:45 Pelger-Huet Anomaly Not Reportable 07/09/21 04:45 Janelle Rods Not Reportable 07/09/21 04:45 Platelet Estimate Consistent w auto 07/09/21 04:45 Clumped Platelets Not Reportable 07/09/21 04:45 Plt Clumps, EDTA Not Reportable 07/09/21 04:45 Large Platelets Not Reportable 07/09/21 04:45 Giant Platelets Rare 07/09/21 04:45 Platelet Satelliting Not Reportable 07/09/21 04:45 Plt Morphology Comment Not Reportable 07/09/21 04:45 RBC Morphology Not Reportable 07/09/21 04:45 Dimorphic RBCs Not Reportable 07/09/21 04:45 Polychromasia Not Reportable 07/09/21 04:45 Hypochromasia Few 07/09/21 04:45 Poikilocytosis Not Reportable 07/09/21 04:45 Anisocytosis Not Reportable 07/09/21 04:45 Microcytosis Not Reportable 07/09/21 04:45 Macrocytosis Not Reportable 07/09/21 04:45 Spherocytes Not Reportable 07/09/21 04:45 Pappenheimer Bodies Not Reportable 07/09/21 04:45 Sickle Cells Not Reportable 07/09/21 04:45 Target Cells Not Reportable 07/09/21 04:45 Tear Drop Cells Not Reportable 07/09/21 04:45 Ovalocytes Not Reportable 07/09/21 04:45 Stomatocytes 1+ 07/09/21 04:45 Helmet Cells Not Reportable 07/09/21 04:45 [place] Bodies Not Reportable 07/09/21 04:45 [place] Rings Not Reportable 07/09/21 04:45 Mcdermott Cells Not Reportable 07/09/21 04:45 Bite Cells Not Reportable 07/09/21 04:45 Crenated Cell Not Reportable 07/09/21 04:45 Elliptocytes Not Reportable 07/09/21 04:45 Acanthocytes (Spur) Not Reportable 07/09/21 04:45 Rouleaux Not Reportable 07/09/21 04:45 Hemoglobin C Crystals Not Reportable 07/09/21 04:45 Schistocytes Not Reportable 07/09/21 04:45 Malaria parasites Not Reportable 07/09/21 04:45 Justin Bodies Not Reportable 07/09/21 04:45 Hem Pathologist Commnt No 07/09/21 04:45 D-Dimer 638.35 ng/mlDDU (0-234) H 07/09/21 04:45 ABG pH 7.417 (7.320-7.450) 07/23/21 18:11 POC ABG pCO2 78.3 mmHg (32.0-48.0) H 07/23/21 18:11 ABG pCO2 85.7 mm Hg 07/22/21 12:05 POC ABG pO2 80.7 mmHg (83-108) L 07/23/21 18:11 ABG pO2 66.1 mm Hg (80.0-90.0) L 07/22/21 12:05 POC ABG HCO3 49.3 07/23/21 18:11 ABG HCO3 45.0 mmol/L (20.0-26.0) H 07/22/21 12:05 ABG O2 Saturation 96.7 (0-100) 07/23/21 18:11 ABG O2 Content 16.8 (0.0-44) 07/22/21 12:05 POC ABG Base Excess 20.5 07/23/21 18:11 ABG Base Excess 15.2 mmol/L (-2.0-3.0) H 07/22/21 12:05 ABG Hemoglobin 12.6 (12.0-17.5) 07/23/21 18:11 ABG Oxyhemoglobin 95.7 (94-98) 07/23/21 18:11 ABG Carboxyhemoglobin 1.9 % (0.0-5.0) 07/22/21 12:05 ABG Methemoglobin 0.3 (0.0-1.5) 07/23/21 18:11 ABG Sodium 134.9 mmol/L (136.0-145.0) L 07/23/21 18:11 ABG Potassium 3.9 mmol/L (3.40-4.50) 07/23/21 18:11 ABG Chloride 89.0 mmol/L (98-107) L 07/23/21 18:11 ABG Glucose 200 mg/dL (65-95) H 07/23/21 18:11 Oxyhemoglobin 91.9 % (95.0-99.0) L 07/22/21 12:05 Carboxyhemoglobin 0.7 (0.5-1.5) 07/23/21 18:11 FiO2 100 % 07/22/21 12:05 FiO2 % 100.0 07/23/21 18:11 Sodium 140 mmol/L (137-145) 08/08/21 04:51 Potassium 4.1 mmol/L (3.6-5.0) 08/08/21 04:51 Chloride 92.9 mmol/L (98-107) L 08/08/21 04:51 Carbon Dioxide 39 mmol/L (22-30) H 08/08/21 04:51 Anion Gap 12 mmol/L 08/08/21 04:51 BUN 9 mg/dL (7-17) 08/08/21 04:51 Creatinine < 0.2 mg/dL (0.6-1.2) L 08/08/21 04:51 Estimated GFR > 60 ml/min 08/08/21 04:51 BUN/Creatinine Ratio 45 % 08/08/21 04:51 Glucose 105 mg/dL (65-100) H 08/08/21 04:51 POC Glucose 285 mg/dL (70-105) H 08/26/21 10:33 Hemoglobin A1c 8.5 % (4-6) H 04/18/21 07:36 Calcium 9.4 mg/dL (8.4-10.2) 08/08/21 04:51 Phosphorus 3.70 mg/dL (2.5-4.5) 07/23/21 04:35 Magnesium 2.10 mg/dL (1.7-2.3) 07/23/21 04:35 Ferritin 155.9 ng/mL (10.0-200.0) 07/09/21 04:45 Total Bilirubin < 0.20 mg/dL (0.1-1.2) 07/26/21 09:56 AST 23 units/L (5-40) 07/26/21 09:56 ALT 25 units/L (7-56) 07/26/21 09:56 Alkaline Phosphatase 69 units/L (35-129) 07/26/21 09:56 Lactate Dehydrogenase 475 units/L (91-180) H 06/05/21 05:26 C-Reactive Protein 4.30 mg/dL (0.00-1.30) H 07/09/21 04:45 NT-Pro-B Natriuret Pep 59.45 pg/mL (0-450) 07/07/21 13:40 Total Protein 8.1 g/dL (6.3-8.2) 07/26/21 09:56 Albumin 3.2 g/dL (3.9-5) L 07/26/21 09:56 Albumin/Globulin Ratio 0.7 % 07/26/21 09:56 Triglycerides < 9 mg/dL (2-149) 05/03/21 04:30 Procalcitonin < 0.05 ng/mL (<0.15) 05/23/21 09:50 Arterial Blood Glucose 200 mg/dL (65-95) H 07/23/21 18:11 Arterial Blood Ionized Calcium 4.6 mg/dL (4.6-5.3) 07/23/21 18:11 Coronavirus (PCR) Negative (Negative) 07/25/21 Unknown Amos/IV: Voiding Method External Female Catheter Active Medications - Current Medications Current Medications: Generic Name Dose Route Start Last Admin Trade Name Freq PRN Reason Stop Dose Admin Acetaminophen 650 mg 07/02/21 17:48 08/25/21 22:53 Acetaminophen 325 Mg Tab PO 650 mg Q4H PRN Administration Pain, Mild (1-3) Albuterol 2.5 mg 04/16/21 13:39 04/21/21 20:39 Albuterol 2.5 Mg/3 Ml Nebu IH 2.5 mg Q4HRT PRN Administration Shortness Of Breath Alprazolam 1 mg 08/12/21 11:00 08/26/21 10:31 Alprazolam 1 Mg Tab PO 1 mg BID TUTU Administration Calcium Carbonate/Glycine 500 mg 07/24/21 10:43 08/14/21 22:24 Calcium Carbonate 500 Mg Tab Chew PO 500 mg BID PRN Administration reflux Cholecalciferol 1,000 unit 04/17/21 10:00 08/26/21 10:31 Cholecalciferol (Vit D3) 1000 Unit (25 Mcg) Tab PO 1,000 unit QDAY TUTU Administration Enoxaparin Sodium 40 mg 05/19/21 22:00 08/25/21 22:53 Enoxaparin 40 Mg/0.4 Ml Inj SUB-Q 40 mg QDAY@2200 TUTU Administration Protocol Insulin Glargine 10 units 08/17/21 13:33 08/26/21 10:31 Insulin Glargine 100 Units/Ml SUB-Q 10 units DAILY TUTU Administration Insulin Human Lispro 0 unit 05/18/21 12:00 08/26/21 10:37 Insulin Lispro 100 Unit/Ml SUB-Q 6 unit ACHS TUTU Administration Protocol Methylprednisolone Sodium Succinate 125 mg 08/23/21 14:00 08/26/21 05:09 Methylprednisolone Sod Succinate 125 Mg/2 Ml Inj IV 125 mg Q8HR TUTU Administration Ondansetron HCl 4 mg 04/16/21 14:00 05/30/21 10:07 Ondansetron 4 Mg/2 Ml Inj IV 4 mg Q8H PRN Administration Nausea And Vomiting Polyethylene Glycol 17 gm 07/16/21 20:00 08/11/21 11:18 Polyethylene Glycol 3350 17 Gm Powder PO 17 gm QDAY PRN Administration Constipation Sodium Chloride 10 ml 04/16/21 13:39 08/23/21 23:00 Sodium Chloride 0.9% 10 Ml Flush Syringe IV 10 ml PRN PRN Administration LINE FLUSH Nutrition/Malnutrition Assess - Dietary Evaluation Nutrition/Malnutrition Findings: Nutrition Notes Start: 04/23/21 07:41 Freq: Status: Active Protocol: Document 08/09/21 17:26 SAQIB (Rec: 08/09/21 17:30 SAQIB [id number]) Nutrition Notes Initial or Follow up Brief Note Subjective/Other Information RD brief note to set next F/U on 09/12 Nutrition Intervention Follow-Up By: 09/12/21 Additional Comments Continue monitoring food tolerance, %PO intake of meals , Hydration, and BM.
[2021-08-26] MEDS: ACETAMINOPHEN 325 MG TAB PO PRN (21:25)
[2021-08-26] MEDS: ENOXAPARIN 40 MG/0.4 ML INJ SUB-Q SCH (21:27)
[2021-08-27] MEDS: methylPREDNISolone Sod Succinate 125 MG/2 ML INJ IV SCH ×3 (05:22→21:47)
[2021-08-27 05:43] LABS: Alanine Aminotransferase 100 units/L (7-56); Albumin 3.5 g/dL (3.9-5); Blood Urea Nitrogen 18 mg/dL (7-17); Calcium 8.9 mg/dL (8.4-10.2); Hemolysis Index 10
[2021-08-27 05:46] LABS: BUN/Creatinine Ratio 90
[2021-08-27] MEDS: INSULIN LISPRO 100 UNIT/ML SUB-Q SCH ×4 (08:30→21:49)
[2021-08-27] MEDS: INSULIN GLARGINE 100 UNITS/ML SUB-Q SCH (10:05)
[2021-08-27] MEDS: ALPRAZolam 1 MG TAB PO SCH ×2 (10:06→21:47)
[2021-08-27] MEDS: CHOLECALCIFEROL (VIT D3) 1000 UNIT (25 mcg) TAB PO SCH (10:06)
--- NOTE | 2021-08-27 10:59 | Progress Note ---
Assessment and Plan Assessment and plan: -Acute hypoxic/hypercapneic respiratory failure --Severe ARDS. Suspected possible post Covid pneumonia lung fibrosis. Continues to require high flow nasal cannula oxygen 30 L/50% FiO2/O2 sats 97% refusing BiPAP, on 100% nonrebreather , Wean as tolerated. Maintain SpO2 >88% Steroids resumed on IV Solu-Medrol on 08/16/2021. Will maintain high-dose IV Solu-Medrol at 125 mg every 8 hours X-ray chest 08/22/2021: Extensive bilateral parenchymal disease unchanged Discussed with pulmonology Dr. Merida --Metabolic alkalosis Continue monitoring --Heart failure with preserved ejection fraction -TTE: LVEF 55-60% with diastolic dysfunction -will continue to monitor for signs of fluid overload. -On intermittent diuretics. --COVID-19 infection -Has completed treatment. --Type 2 diabetes -Uncontrolled most likely due to steroid -Continue Lantus to 20 SQ daily. Continue sliding scale insulin. --Anxiety -Stable -continue xanax --DVT prophylaxis -Lovenox 40 daily --Deconditioning PT OT when stable Possible SNF placement at discharge Resolved issues #Sepsis secondary to COVID-19 #Iatrogenic diarrhea #Hypomagnesemia #Hyponatremia #Protein calorie malnutrition #Dysuria #Hypokalemia #Possible UTI --Advanced care planning -Disease education conducted, care plan discussed, diagnoses discussed, prognosis discussed, and patient acknowledges understanding with care plan -Time: +30 minutes --Disposition Plan: Continue medical management Total Time Spent with Patient (Minutes): 35 minutes Brief history and daily hospital course; Admitted on 04/16/2021 50 YO Female with GERD, Obesity, HLD presents to ED for evaluation. Patient r eports "I cannot breathe". Patient states that she has experienced subjective fever, shortness of breath, malaise, body aches, dry cough, and shortness of breath over the past 1 week with progressively worsening symptoms over the same timeframe. EMS was notified and upon arrival the patient was found to be in distress and subsequent transported to [facility] for further care and evaluation of the aforementioned symptoms. The patient was seen and evaluated in the emergency department. All lab and imaging studies reviewed. Patient found to have a pulse oximetry of 86% with exertion on room air which is consistent with acute hypoxemic respiratory failure. Patient with chest x-ray which revealed bilateral pneumonia. Patient admitted to medical floor and initiated him on pneumonia protocol as well as coronavirus protocol. Patient knowledges fever but denies chills, chest pain, palpitation, skin rash, recent ill contacts, or known exposure to COVID-19. Prior admission on 01/21/2017 reviewed. All medication listed at time of admission has been reconciled. Patient is unvaccinated for coronavirus infection. CXR: Bilateral Pneumonia 04/17: Patient seen and examined, still uncomfortable with Hypoxic respiratory failure and on oxygen, will continue to steroids therapy, start patient on Re mdesivir, ID consulted, Pulmonary consult placed. 04/18: Patient seen and examined, she is currently being changed to High flow NC due to worsening HYPOXIA, will transfer to IMCU, Pulmonary and ID following. Will also give a dose of Lasix today. Monitor Inflammatory markers. 04/19: Patient seen and examined still on high flow due to hypoxia. Appears a bit more comfortable today than yesterday. Cough has decreased in frequency. We will continue high dose Dexameathasone to complete 10 days. continue on Remdesivir 200 mg IV q day x 1 followed by 100 mg IV q day x 4 days -Obtain q48-72h inflammatory markers - ferritin, Ddimer, CRP, LDH Will also give lasix daily for the next 3 days and monitor renal function. Family updated. Continue prone positioning as tolerated 04/20: Patient has some desaturation episodes yesterday was placed on BiPAP. Discussed with ICU team for bed availability for patient to be transferred up. Continue prone position as tolerated. 04/21: Patient remains with profound hypoxia secondary to COVID pneumonia. -Continue steroids -Continue remedesir -S/P Actmera 04/22: Patient remains on steroids and remdesivir. ABG shows persistent hypoxia. We will continue current management additional trial of Lasix for the next few days to see if any improvement. Monitor inflammatory markers as needed. Prognosis is guarded remains on high flow 04/23; patient was treated with remdesivir and Actemra. Continue steroid. Patient's prognosis is guarded. 04/24; patient is on steroid. Patient is currently on BiPAP. Prognosis is guarded. Pulmonary is following. Patient was given Lasix and Ativan. 04/25; continue steroid. Patient was on 40 L of high flow oxygen with saturation was 88%. Pulmonary is following. Prognosis is guarded. Patient was given lasix and ativan. 04/26; patient is on BiPAP and Precedex. Prognosis is guarded. 04/27; patient is on BiPAP and Precedex. Patient will finish steroid today and will start on Solu-Medrol tomorrow. Prognosis is guarded. Blood pressure is better today. Hold Lasix. 04/28 patient is on 100 Fio2 via BIPAP. moderately dyspneic, pulmonary note reviewed, lab results reviewed 04/29 no acute events- see systems review above 04/30 no acute events overnight - on airvo today- TPN started -see systems review above 05-01 no acute events overnight- tolerating airvo- see systems review above 05-02 no acute events overnight; tolerating airvo this AM- see systems review above 05/03: Patient remains on full high flow oxygen. No acute events overnight 05/04: Patient remains on BiPAP this morning at 70%. Returning to service Patient initially managed in the ICU and then transfered to the floor 06/25: Patient remains on full oxygen with high flow, encouraged to prone at night time. Spoke to Night nursing staff to ensure assisting the patient Prone. Continue steroid therapy, will discuss with Pulmonary about trying additional lasix. Plan discussed with patient and family. 06/26: Patient already on Lasix daily, Hypokalemia- Replace K. Continue to encourage Proning. Remains on high flow. 06/27: Continue supportive care unfortunately had to go up on her oxygen to 70% FiO2 prognosis remains guarded continue to encourage proning. 06/28: Continue supportive care, Encourage Proning 06/29: Mild hypokalemia noted yesterday will be replaced as it was not corrected yesterday we will recheck BMP in a.m. Continue IV Lasix. Monitor renal function. 06/30: Give additional potassium for better control. Continue supportive care. Continue IV Lasix. Continue to encourage proning again discussed with the patient via healthcare interpreter. He verbalized understanding 07/01: Brief summary patient seen and examined this morning continues to show improvement FiO2 demand down to 45% on 30 L on high flow. Patient is a 50-year-old male who was admitted with COVID-19 today is day 76 of her hospital stay she was initially managed in the ICU and now has been transferred to the floor. She remains on low-dose steroid therapy following completion of remdesivir and recommended steroid. She is encouraged to continue to prone and the nights that she has done this has shown some improvement. She is still probably a long way from being discharged. Intermittent monitoring off electrolytes as she has had some episode of hyponatremia and hypomagnesemia is recommended. She is concerned about puffiness in her face which is likely steroid-induced I have discussed this with her that it will improve following discontinuation of steroid. In the meantime I have held her Lasix as we have been diuresing her for majority of her stay and this should be reevaluated the next few days to see if she will benefit from further diuresis. Pulmonary is on board 08/20: Return to service today. Remains on high flow oxygen, not tolerating weaning, continue current management Currently undergoing management and awaiting for possible home hospice 08/21: Patient still on high flow and NRB, still severely Hypoxic. Continue supportive care. Prognosis guarded. 08/22: Patient seen and examined, she still remains on 50% high flow and also nonrebreather. Per staff she is refusing therapy have provided counseling to her that this will help her improve. She is also awaiting for hospice discharge which case management is working on. Chest x-ray reviewed shows persistent interstitial infiltrates bilaterally. 08/23; remains on high flow nasal cannula oxygen 30 L/50% FiO2/O2 sats 97%, patient refusing BiPAP, will continue high-dose IV Solu-Medrol at 125 mg every 8 hours. Discussed with pulmonary critical Dr. Merida 08/24; patient remains on high flow nasal cannula oxygen 26 L, wean as tolerate d, continue rest of the management including high-dose Solu-Medrol 125 mg every 8 hours 08/25; patient remains on high flow oxygen at 26 L/50% FiO2 saturating 97% 08/26; continue current management. Continue high flow oxygen wean as tolerated. Continue high-dose steroids Consults and recommendations noted and appreciated 08/27; today patient is awake saturating well on 4 to 5 L nasal cannula, discussed with case management to set up home oxygen Out of bed to chair, PT OT evaluation History Interval history: I have seen and examined the patient at the bedside Patient is more alert and awake and cheerful Saturating well on 4 to 5 L nasal cannula oxygen Hospitalist Physical - Constitutional Vitals: Temp Pulse Resp BP Pulse Ox 97.8 F 81 16 95/35 100 08/27/21 04:00 08/27/21 07:00 08/27/21 07:00 08/27/21 07:00 08/27/21 09:35 General appearance: Present: no acute distress, well-nourished, other (Looks tired) - EENT Eyes: Present: PERRL, EOM intact - Neck Neck: Present: supple, normal ROM - Respiratory Respiratory effort: normal Respiratory: bilateral: diminished, negative: rales, rhonchi, wheezing - Cardiovascular Rhythm: regular Heart Sounds: Present: S1 & S2 - Extremities Extremities: no ischemia, No edema - Abdominal General gastrointestinal: soft, non-tender, non-distended, normal bowel sounds - Integumentary Integumentary: Present: clear, warm - Psychiatric Psychiatric: appropriate mood/affect, cooperative - Neurologic Neurologic: CNII-XII intact, moves all extremities Results - Labs CBC & Chem 7: 07/23/21 04:35 08/27/21 04:59 Labs: Laboratory Last Values WBC 10.8 K/mm3 (4.5-11.0) 07/23/21 04:35 RBC 3.84 M/mm3 (3.65-5.03) 07/23/21 04:35 Hgb 12.1 gm/dl (10.1-14.3) 07/23/21 04:35 Hct 37.6 % (30.3-42.9) 07/23/21 04:35 MCV 98 fl (79-97) H 07/23/21 04:35 MCH 32 pg (28-32) 07/23/21 04:35 MCHC 32 % (30-34) 07/23/21 04:35 RDW 16.2 % (13.2-15.2) H 07/23/21 04:35 Plt Count 367 K/mm3 (140-440) 07/23/21 04:35 Lymph % (Auto) 7.9 % (13.4-35.0) L 07/23/21 04:35 Murray % (Auto) 5.6 % (0.0-7.3) 07/23/21 04:35 Eos % (Auto) 0.8 % (0.0-4.3) 07/23/21 04:35 Baso % (Auto) 0.4 % (0.0-1.8) 07/23/21 04:35 Lymph # (Auto) 0.9 K/mm3 (1.2-5.4) L 07/23/21 04:35 Murray # (Auto) 0.6 K/mm3 (0.0-0.8) 07/23/21 04:35 Eos # (Auto) 0.1 K/mm3 (0.0-0.4) 07/23/21 04:35 Baso # (Auto) 0.0 K/mm3 (0.0-0.1) 07/23/21 04:35 Add Manual Diff Complete 07/09/21 04:45 Total Counted 100 07/09/21 04:45 Seg Neutrophils % 85.3 % (40.0-70.0) H 07/23/21 04:35 Seg Neuts % (Manual) 82.0 % (40.0-70.0) H 07/09/21 04:45 Band Neutrophils % 1.0 % 05/12/21 04:05 Lymphocytes % (Manual) 13.0 % (13.4-35.0) L 07/09/21 04:45 Monocytes % (Manual) 3.0 % (0.0-7.3) 07/09/21 04:45 Eosinophils % (Manual) 2.0 % (0.0-4.3) 07/09/21 04:45 Nucleated RBC % Not Reportable 07/09/21 04:45 Seg Neutrophils # 9.2 K/mm3 (1.8-7.7) H 07/23/21 04:35 Seg Neutrophils # Man 7.8 K/mm3 (1.8-7.7) H 07/09/21 04:45 Band Neutrophils # 0.0 K/mm3 07/09/21 04:45 Lymphocytes # (Manual) 1.2 K/mm3 (1.2-5.4) 07/09/21 04:45 Abs React Lymphs (Man) 0.0 K/mm3 07/09/21 04:45 Monocytes # (Manual) 0.3 K/mm3 (0.0-0.8) 07/09/21 04:45 Eosinophils # (Manual) 0.2 K/mm3 (0.0-0.4) 07/09/21 04:45 Basophils # (Manual) 0.0 K/mm3 (0.0-0.1) 07/09/21 04:45 Metamyelocytes # 0.0 K/mm3 07/09/21 04:45 Myelocytes # 0.0 K/mm3 07/09/21 04:45 Promyelocytes # 0.0 K/mm3 07/09/21 04:45 Blast Cells # 0.0 K/mm3 07/09/21 04:45 WBC Morphology Not Reportable 07/09/21 04:45 Hypersegmented Neuts Not Reportable 07/09/21 04:45 Hyposegmented Neuts Not Reportable 07/09/21 04:45 Hypogranular Neuts Not Reportable 07/09/21 04:45 Smudge Cells Not Reportable 07/09/21 04:45 Toxic Granulation Not Reportable 07/09/21 04:45 Toxic Vacuolation Not Reportable 07/09/21 04:45 Dohle Bodies Not Reportable 07/09/21 04:45 Pelger-Huet Anomaly Not Reportable 07/09/21 04:45 Janelle Rods Not Reportable 07/09/21 04:45 Platelet Estimate Consistent w auto 07/09/21 04:45 Clumped Platelets Not Reportable 07/09/21 04:45 Plt Clumps, EDTA Not Reportable 07/09/21 04:45 Large Platelets Not Reportable 07/09/21 04:45 Giant Platelets Rare 07/09/21 04:45 Platelet Satelliting Not Reportable 07/09/21 04:45 Plt Morphology Comment Not Reportable 07/09/21 04:45 RBC Morphology Not Reportable 07/09/21 04:45 Dimorphic RBCs Not Reportable 07/09/21 04:45 Polychromasia Not Reportable 07/09/21 04:45 Hypochromasia Few 07/09/21 04:45 Poikilocytosis Not Reportable 07/09/21 04:45 Anisocytosis Not Reportable 07/09/21 04:45 Microcytosis Not Reportable 07/09/21 04:45 Macrocytosis Not Reportable 07/09/21 04:45 Spherocytes Not Reportable 07/09/21 04:45 Pappenheimer Bodies Not Reportable 07/09/21 04:45 Sickle Cells Not Reportable 07/09/21 04:45 Target Cells Not Reportable 07/09/21 04:45 Tear Drop Cells Not Reportable 07/09/21 04:45 Ovalocytes Not Reportable 07/09/21 04:45 Stomatocytes 1+ 07/09/21 04:45 Helmet Cells Not Reportable 07/09/21 04:45 Ahuja-Elsie Bodies Not Reportable 07/09/21 04:45 [place] Rings Not Reportable 07/09/21 04:45 [place] Cells Not Reportable 07/09/21 04:45 Bite Cells Not Reportable 07/09/21 04:45 Crenated Cell Not Reportable 07/09/21 04:45 Elliptocytes Not Reportable 07/09/21 04:45 Acanthocytes (Spur) Not Reportable 07/09/21 04:45 Rouleaux Not Reportable 07/09/21 04:45 Hemoglobin C Crystals Not Reportable 07/09/21 04:45 Schistocytes Not Reportable 07/09/21 04:45 Malaria parasites Not Reportable 07/09/21 04:45 Justin Bodies Not Reportable 07/09/21 04:45 Hem Pathologist Commnt No 07/09/21 04:45 D-Dimer 638.35 ng/mlDDU (0-234) H 07/09/21 04:45 ABG pH 7.417 (7.320-7.450) 07/23/21 18:11 POC ABG pCO2 78.3 mmHg (32.0-48.0) H 07/23/21 18:11 ABG pCO2 85.7 mm Hg 07/22/21 12:05 POC ABG pO2 80.7 mmHg (83-108) L 07/23/21 18:11 ABG pO2 66.1 mm Hg (80.0-90.0) L 07/22/21 12:05 POC ABG HCO3 49.3 07/23/21 18:11 ABG HCO3 45.0 mmol/L (20.0-26.0) H 07/22/21 12:05 ABG O2 Saturation 96.7 (0-100) 07/23/21 18:11 ABG O2 Content 16.8 (0.0-44) 07/22/21 12:05 POC ABG Base Excess 20.5 07/23/21 18:11 ABG Base Excess 15.2 mmol/L (-2.0-3.0) H 07/22/21 12:05 ABG Hemoglobin 12.6 (12.0-17.5) 07/23/21 18:11 ABG Oxyhemoglobin 95.7 (94-98) 07/23/21 18:11 ABG Carboxyhemoglobin 1.9 % (0.0-5.0) 07/22/21 12:05 ABG Methemoglobin 0.3 (0.0-1.5) 07/23/21 18:11 ABG Sodium 134.9 mmol/L (136.0-145.0) L 07/23/21 18:11 ABG Potassium 3.9 mmol/L (3.40-4.50) 07/23/21 18:11 ABG Chloride 89.0 mmol/L (98-107) L 07/23/21 18:11 ABG Glucose 200 mg/dL (65-95) H 07/23/21 18:11 Oxyhemoglobin 91.9 % (95.0-99.0) L 07/22/21 12:05 Carboxyhemoglobin 0.7 (0.5-1.5) 07/23/21 18:11 FiO2 100 % 07/22/21 12:05 FiO2 % 100.0 07/23/21 18:11 Sodium 141 mmol/L (137-145) 08/27/21 04:59 Potassium 4.7 mmol/L (3.6-5.0) 08/27/21 04:59 Chloride 92.7 mmol/L (98-107) L 08/27/21 04:59 Carbon Dioxide 46 mmol/L (22-30) H* 08/27/21 04:59 Anion Gap 10 mmol/L 08/27/21 04:59 BUN 18 mg/dL (7-17) H 08/27/21 04:59 Creatinine < 0.2 mg/dL (0.6-1.2) L 08/27/21 04:59 Estimated GFR > 60 ml/min 08/27/21 04:59 BUN/Creatinine Ratio 90 % 08/27/21 04:59 Glucose 216 mg/dL (65-100) H 08/27/21 04:59 POC Glucose 237 mg/dL (70-105) H 08/27/21 08:50 Hemoglobin A1c 8.5 % (4-6) H 04/18/21 07:36 Calcium 8.9 mg/dL (8.4-10.2) 08/27/21 04:59 Phosphorus 4.40 mg/dL (2.5-4.5) 08/27/21 04:59 Magnesium 2.00 mg/dL (1.7-2.3) 08/27/21 04:59 Ferritin 155.9 ng/mL (10.0-200.0) 07/09/21 04:45 Total Bilirubin < 0.20 mg/dL (0.1-1.2) 08/27/21 04:59 AST 28 units/L (5-40) 08/27/21 04:59 ALT 100 units/L (7-56) H 08/27/21 04:59 Alkaline Phosphatase 62 units/L (35-129) 08/27/21 04:59 Lactate Dehydrogenase 475 units/L (91-180) H 06/05/21 05:26 C-Reactive Protein 4.30 mg/dL (0.00-1.30) H 07/09/21 04:45 NT-Pro-B Natriuret Pep 59.45 pg/mL (0-450) 07/07/21 13:40 Total Protein 6.1 g/dL (6.3-8.2) L 08/27/21 04:59 Albumin 3.5 g/dL (3.9-5) L 08/27/21 04:59 Albumin/Globulin Ratio 1.3 % 08/27/21 04:59 Triglycerides < 9 mg/dL (2-149) 05/03/21 04:30 Procalcitonin < 0.05 ng/mL (<0.15) 05/23/21 09:50 Arterial Blood Glucose 200 mg/dL (65-95) H 07/23/21 18:11 Arterial Blood Ionized Calcium 4.6 mg/dL (4.6-5.3) 07/23/21 18:11 Coronavirus (PCR) Negative (Negative) 07/25/21 Unknown Amos/IV: Voiding Method External Female Catheter Active Medications - Current Medications Current Medications: Generic Name Dose Route Start Last Admin Trade Name Freq PRN Reason Stop Dose Admin Acetaminophen 650 mg 07/02/21 17:48 08/26/21 21:25 Acetaminophen 325 Mg Tab PO 650 mg Q4H PRN Administration Pain, Mild (1-3) Albuterol 2.5 mg 04/16/21 13:39 04/21/21 20:39 Albuterol 2.5 Mg/3 Ml Nebu IH 2.5 mg Q4HRT PRN Administration Shortness Of Breath Alprazolam 1 mg 08/12/21 11:00 08/26/21 21:29 Alprazolam 1 Mg Tab PO 1 mg BID TUTU Administration Calcium Carbonate/Glycine 500 mg 07/24/21 10:43 08/14/21 22:24 Calcium Carbonate 500 Mg Tab Chew PO 500 mg BID PRN Administration reflux Cholecalciferol 1,000 unit 04/17/21 10:00 08/26/21 10:31 Cholecalciferol (Vit D3) 1000 Unit (25 Mcg) Tab PO 1,000 unit QDAY TUTU Administration Enoxaparin Sodium 40 mg 05/19/21 22:00 08/26/21 21:27 Enoxaparin 40 Mg/0.4 Ml Inj SUB-Q 40 mg QDAY@2200 TUTU Administration Protocol Insulin Glargine 10 units 08/17/21 13:33 08/26/21 10:31 Insulin Glargine 100 Units/Ml SUB-Q 10 units DAILY TUTU Administration Insulin Human Lispro 0 unit 05/18/21 12:00 08/26/21 21:46 Insulin Lispro 100 Unit/Ml SUB-Q 6 unit ACHS TUTU Administration Protocol Methylprednisolone Sodium Succinate 125 mg 08/23/21 14:00 08/27/21 05:22 Methylprednisolone Sod Succinate 125 Mg/2 Ml Inj IV 125 mg Q8HR TUTU Administration Ondansetron HCl 4 mg 04/16/21 14:00 05/30/21 10:07 Ondansetron 4 Mg/2 Ml Inj IV 4 mg Q8H PRN Administration Nausea And Vomiting Polyethylene Glycol 17 gm 07/16/21 20:00 08/11/21 11:18 Polyethylene Glycol 3350 17 Gm Powder PO 17 gm QDAY PRN Administration Constipation Sodium Chloride 10 ml 04/16/21 13:39 08/26/21 21:32 Sodium Chloride 0.9% 10 Ml Flush Syringe IV 10 ml PRN PRN Administration LINE FLUSH Nutrition/Malnutrition Assess - Dietary Evaluation Nutrition/Malnutrition Findings: Nutrition Notes Start: 04/23/21 07:41 Freq: Status: Active Protocol: Document 08/09/21 17:26 SAQIB (Rec: 08/09/21 17:30 [email or web address] [id number]) Nutrition Notes Initial or Follow up Brief Note Subjective/Other Information RD brief note to set next F/U on 09/12 Nutrition Intervention Follow-Up By: 09/12/21 Additional Comments Continue monitoring food tolerance, %PO intake of meals , Hydration, and BM.
--- NOTE | 2021-08-27 11:23 | Progress Note ---
Assessment and Plan 50 y/o female with acute respiratory failure secondary to COVID19 pneumonia. 08/27/21: Continue to wean FiO2 as tolerated for sats >88%. PT/OT. Tomorrow will discuss with pharmacy about weaning and how long of a steroid taper she should have. Continue IMCU for now. 08/26/21: Continue to wean FiO2 and flow as tolerated. Order CXR and start dropping steroids down tomorrow. 08/23/21: Patient continues to have slow improvement with steroids so please continue solumedrol 125q8 through the weekend at least and will reassess on . CM is working to obtain hospice placement with hfnc therapy. Repeat CXR on Thursday. 08/21/21: Will repeat CXR today. Consider decreasing steroid tomorrow. 08/18/21: Will continue steroids at current dosing as I believe they are helping. IMS managing blood sugars. I notified RT but I dropped FiO2 down to 55% while patient was sleeping. Will continue to follow. CM still working with hospice to get home but has to meet certain criteria on HFNC and she is not there yet. 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 Will continue solumedrol 125q8 and wean slowly over time. Discussed with pharmacy. CM working on possible placement with hospice company once she reaches a certain goal of HFNC. Will continue to monitor. 08/14/21: wean HFNC as tolerated. 08/12/21: Continue to attempt to wean HFNC. No other therapies available for this at present. Will check CXR today. 08/07/21: Constant struggle with Ms. Ren, on and off bipap. Good and bad days. She has had all therapy. Anxiety does play a huge roll but she truly desats. Continue NIV at night and PRN during the day. Wean HFNC as tolerated for sats >88%. May consider another trial of steroids when I come back. My partner is rounding the next 4 days. 08/05/21: I dropped FiO2 to 65%. Continue to wean for sats >88%. 08/03/21: COntinue supportive measures. Thank you for documenting refusal of NIV at night. Will attempt to speak with patient about anxiety and why she doesn't want to wear the NIV via the language line. 08/02/21: Continue supportive care. pLaced new order for NIV at night. Please document if patient refuses 07/31/21: COntinue to wean FiO2 as tolerated. NIV at night. 07/30/21: Bipap QHS. Please document if patient is refusing this at night. Per nurse she has refused but RT documentation reflects that it was PRN and not needed. Prognosis is still guarded. 07/29/21: Continue to attempt to wean FiO2. Given fluctuations in oxygen requirements, ok with keeping in IMCU. consider using bipap therapy at night if patient will allow. Prognosis still remains guarded. Patient has been here 104 days. 07/21/21: Wean FiO2 as tolerated. Patient has never proned the entire 96 days she has been here. Will continue bipap at night. Hold on lasix again today. Prognosis remains guarded. Has finished steroids and all other experimental COVID drugs with minimal to no improvement. 07/20/21: Give patient a break off of bipap and attempt high flow nasal cannula today. Will feed. Suggest keeping bipap therapy at night. Monitor fluid balance and BP. May need more lasix. 07/19/21: This was not related to stopping steroids as hemodynamically she is stable. Her sats is very good on 90%, I dropped to 85 and will continue to wean. She speaks no turkish and is very anxious. This adds to her work of breathing. COntinue to wean FiO2 as tolerated. Will give periodic breaks on bipap therapy. Guarded prognosis. 07/17/21: will stop steroids today. Hold on lasix given marginal blood pressure. Guarded prognosis. 07/15/21: Lasix today. Positive fluid balance all weekend based on I/O. Prone. Wean for sats >88% 07/12/21: Gave lasix 40mg IV again this am. Per charting yesterday was the first net negative day. Suggest PRN diuresis over the weekend as well. My partner is rounding but will likely see as needed. Continue to wean for sats >88% 07/11/21: Lasix 40mg IV this am. Attempt to prone if able. Attempt to achieve daily net negative state. Wean for sats >88%. Guarded prognosis. Will change prednisone to 5mg daily starting tomorrow. 07/09/21: Echo shows diastolic dysfunction. Will given an additional 40 of IV lasix today. Monitor daily and wean aggressively for sats >88% 07/08/21: Worsening CXR, Gave lasix yesterday and will give again today. Sugg est checking echo, ekg. Prognosis is poor now with this change. We have seen COVID cause CAD with IL. 07/05/21: Will monitor over the weekend. Worst case scenario, may need to go back up to Prednisone 20 at least. Prone if able. Unsure why all of sudden oxygen requirement increasing. Will repeat CXR. 07/03/21: Down to 10 of prednisone. Will keep through the weekend and then drop to 5 on Thursday. PT/OT assessment if not done. Suggest maybe weaning flow now given FiO2 down to 50%. Prognosis is still guarded. 07/01/21: Will drop steroids to 10mg daily starting tomorrow. Wean for sats >88%. Prone. PT/OT should be seeing now that oxygen requirement is down more. 06/28/21: Continue to wean as tolerated. Will drop steroids down even further next week. Will see PRN over the weekend. 06/26/21: Will drop steroids down to 20 starting tomorrow. Prone. Continue to wean as tolerated. 06/24/21: Continue Pred, will drop to 20 daily tomorrow. Prone if able. Hopeful they can wean FiO2 more. May need to consider increasing flow for a while. 06/21/21: Continue pred at 40, will decrease likely Thursday/Thursday to 20 daily. Prone if able. Continue to wean as tolerated. Prognosis still remains guarded. 06/20/21: Will drop steroids down to 40 today. Proning. Continue to wean FiO2. 06/18/21: Wean Fio2 for sats >88%. Please encourage proning. Drop steroids down to 40 on . 06/14/21: Continue oral steroid therapy. Will do further weaning next week. Wean for sats >88% and prone as tolerated. Will see as needed over the weekend. 06/13/21: Will change to prednisone 60 daily starting tomorrow. Prone if able and wean for sats >88% 06/11/21: no new recs, will change to oral steroids tomorrow, continue to prone if able and wean for sats >88% 06/10/21: Will change to oral steroids on Thursday to begin prolonged taper 06/06/21: Continue to wean as tolerated, will drop steroids on tomorrow. 06/04/21: Clinically no change. Will drop steroids down the end of this week. 05/31/21: Clinically no change. Not eligible for LTACH. Encourage Proning. Will drop steroids down to 40 q8 05/29/21: No acute changes clinically. Still on HFNC but not really able to wean. Continue to encourage proning. Will drop steroids further on Thursday. 05/27/21: No improvement over the weekend but also no worsening. No other strategies to offer. Please continue to encourage patient to prone. I dropped steroids on yesterday. Will wean more later in the week. 05/24/21: No new recs again for today. Will see as needed over the weekend but follow chart peripherally for changes. 05/22/21: No new recs for today. Prognosis remains guarded. 05/21/21: Wean as tolerated. Prone if able. Guarded prognosis 05/20/21: COntinue current level of care. 05/17/21: Prone if possible. Wean FiO2 for sats >88%. Continue scheduled ativan. Prognosis is very very guarded. Unfunded so not a candidate for LTACH 05/16/21: Prone if willing. Wean FIO2 if patient will allow. Anxiety control. Prognosis still remains very guarded. 05/15/21: Not sure if MAR is accurate but may have only gotten one dose of scheduled anixolytic therapy. Continue proning as tolerated, and wean FiO2 and flow for sats >88%. Prognosi remains very very guarded to poor. 05/14/21: Will discontinue the buspar and make the ativan scheduled but will do q6 as oppose to q4 and attempt to leave parameters for nursing when not to give. If anxiety could be controlled, feel that patient could be weaned further. She has no funding so she is not a candidate for LTACH. Prone if possible. Guarded prognosis. This is her 28 day. 05/13/21: Ordered buspar 10 BID to start with to help with anxiety. Please continue to wean FiO2 as tolerated. Will remind nurse that there is PRN ativan available. Continue higher doses of steroids. Prone if able. 05/12/21: Patient may need something longer acting for anxiety. Per chart has not gotten any ativan in days. Would be ok with either buspar or low dose klonopin bid. COntinue higher doses of steroids as patient seems to be respondi ng. Prone if possible. 05/11/21: Continue high doses of steroids and continue to wean for sats >88%. Please encourage proning. 05/10/21: Will continue this dose of steroid at least through the weekend and assess for improvement. will speak with RT about aggressive weaning. Full dose anticoagulation continues. Very very guarded to poor prognosis. 05/09/21: Going to consider increasing steroids to 125q8, maybe as early as tomorrow. continue full dose anticoagulation. 05/08/21: Continue anticoagulation and steroids. Prone if possible. Anxiety control. No objection to CTA if this can happen. Very very guarded prognosis. 05/07/21: Spoke with IMS, not opposed to full dose anticoagulation. If patient goes back on NRB HFNC combo may need to consider restarting PPN again. Encourage proning. Guarded prognosis. 05/06/21: Continue to wean FiO2 and flow for sats >88%. Tolerating diet now so will stop PPN. Continue anxiety control. Continue IV steroids. Would not object to transfer to COVID floor if bed available. Not sure why she was titrated back up to 100% from 85 as all sats documented in the RT's notes were acceptable. Same for under vital signs as well. 05/03/21: Set back last night from yesterday. Continue bipap therapy for now and attempt HFNC maybe later this afternoon. Continue to use PRN ativan but may need to schedule as she likely took off mask from anxiety. Continue IV steroids. Hold on transfer to COVID Floor. 05/02/21: Continue to wean FiO2 as tolerated for sats >88%. Will continue bipap at night. Patient has no funding so not a candidate for LTACH. Given that she has been stable and not requiring the combo of HFNC and NRB, will consider moving to COVID floor. 05/01/21: Continue to wean FiO2 for sats >88%. A sat of 90 is more than acceptable and oxygen should not be increased for this unless patient desats and remains at a sat lower than 88. Bipap at night to give some form of relief and HFNC during the day. Currently on just this alone which is improvement. Ok with daily diuresis but must monitor renal function and BP closely. She was over diuresed last week and we ended up giving fluid back. Prognosis remains guarded. 04/30/21: Will start CLinimix today for nutritional support, without electrolytes. Check labs in am. Prone if able. Continue precedex for anxiety. Very very guarded prognosis. Attempting our best to not intubate. 04/29/21: Continue precedex. Continue IV solumedrol. Prone if able. Guarded prognosis. 04/28/21: Continue Precedex. Picc team attempting to place line now. Stable on Bipap. Ordered steroids IV solumedrol to start today. Prognosis remains guarded, still at very high risk for intubation. 04/27/21: Hypotension improving/improved. Hold on any further lasix dosing. Continue precedex to help with anxeity. later today please attempt HFNC with NRB if needed. Attempt to feed if possible. Steroids end today, please order solumedrol 40q8 to start tomorrow (04/28/21). guarded prognosis. 04/26/21: Hypotension today, most likely from precedex use and diuresis that I d id the last several days. Will bolus again today. Consider midodrine if BP does not respond. 04/25/21: Lasix again today. Keep PRN ativan for now. Hold on precedex for now. Guarded prognosis. Labs ordered for tomorrow. 04/24/21: Lasix today. Will also start patient on low dose PRN ativan. If this does not help will then try precedex. Guarded prognosis. 04/23/21: Prone as tolerated. No lasix today. Continue decadron. Guarded prognosis. High risk for intubation and high mortality with intubation. 04/19/21: Prone as tolerated during the day and sleep prone at night. Continue IV remdesivir and steroids. Did get actemra. Guarded prognosis. 1. Daily net negative state 2. Prone if possible 3. IV remdesivir. 4. Should be a candidate for Actemra 5. IV steroids 6. Guarded Prognosis Subjective Date of service: 08/27/21 Principal diagnosis: Covid-19 Interval history: Patient is now down to 5 liters!!!!!!!!! Objective Vital Signs - 12hr 08/27/21 08/27/21 08/27/21 00:00 01:00 02:00 Temperature 97.7 F Pulse Rate 88 89 82 Pulse Rate [ 86 From Monitor] Respiratory 20 20 18 Rate Blood Pressure 105/49 109/54 105/48 O2 Sat by Pulse 96 98 100 Oximetry 08/27/21 08/27/21 08/27/21 03:00 04:00 05:00 Temperature 97.8 F Pulse Rate 85 87 91 H Pulse Rate [ 87 From Monitor] Respiratory 18 21 19 Rate Blood Pressure 88/49 97/52 105/59 O2 Sat by Pulse 97 97 100 Oximetry 08/27/21 08/27/21 08/27/21 06:00 07:00 07:45 Temperature Pulse Rate 78 81 Pulse Rate [ From Monitor] Respiratory 15 16 Rate Blood Pressure 86/38 95/35 O2 Sat by Pulse 100 100 100 Oximetry 08/27/21 09:35 Temperature Pulse Rate Pulse Rate [ From Monitor] Respiratory Rate Blood Pressure O2 Sat by Pulse 100 Oximetry Constitutional: alert, other (on hiflo o2) Eyes: non-icteric ENT: oropharynx moist Neck: supple Effort: normal Ascultation: Bilateral: diminished breath sounds Cardiovascular: regular rate and rhythm Gastrointestinal: normoactive bowel sounds, soft, non-tender, non-distended Integumentary: normal Extremities: no cyanosis, no edema, pink and warm Neurologic: non-focal exam, pupils equal and round Psychiatric: mood appropriate, affect normal CBC and BMP: 07/23/21 04:35 08/27/21 04:59 ABG, PT/INR, D-dimer: ABG ABG pH 7.417 (7.320-7.450) 07/23/21 18:11 POC ABG pCO2 78.3 mmHg (32.0-48.0) H 07/23/21 18:11 ABG pCO2 85.7 mm Hg 07/22/21 12:05 POC ABG pO2 80.7 mmHg (83-108) L 07/23/21 18:11 ABG pO2 66.1 mm Hg (80.0-90.0) L 07/22/21 12:05 POC ABG HCO3 49.3 07/23/21 18:11 ABG O2 Saturation 96.7 (0-100) 07/23/21 18:11 PT/INR, D-dimer D-Dimer 638.35 ng/mlDDU (0-234) H 07/09/21 04:45 Abnormal lab findings: Abnormal Labs 04/16/21 04/16/21 04/16/21 11:42 11:42 11:42 WBC MCV MCH MCHC RDW 16.1 H Lymph % (Auto) 7.8 L [place] % (Auto) Eos % (Auto) Lymph # (Auto) 0.8 L [place] # (Auto) Eos # (Auto) Baso # (Auto) Seg Neutrophils % 87.7 H Seg Neuts % (Manual) Lymphocytes % (Manual) Seg Neutrophils # 8.5 H Seg Neutrophils # Man Lymphocytes # (Manual) D-Dimer 338.70 H ABG pH POC ABG pCO2 POC ABG pO2 ABG pO2 ABG HCO3 ABG O2 Saturation ABG Base Excess ABG Oxyhemoglobin ABG Sodium ABG Chloride ABG Glucose Oxyhemoglobin Carboxyhemoglobin Sodium Potassium Chloride Carbon Dioxide BUN Creatinine Glucose 194 H POC Glucose Hemoglobin A1c Magnesium Ferritin AST ALT Alkaline Phosphatase Lactate Dehydrogenase C-Reactive Protein Total Protein 8.4 H Albumin 3.8 L Arterial Blood Glucose Coronavirus (PCR) 04/16/21 04/16/21 04/17/21 11:42 11:42 03:50 WBC MCV MCH MCHC RDW 16.0 H Lymph % (Auto) 7.7 L [place] % (Auto) Eos % (Auto) Lymph # (Auto) 0.6 L [place] # (Auto) Eos # (Auto) Baso # (Auto) Seg Neutrophils % 89.8 H Seg Neuts % (Manual) Lymphocytes % (Manual) Seg Neutrophils # Seg Neutrophils # Man Lymphocytes # (Manual) D-Dimer ABG pH POC ABG pCO2 POC ABG pO2 ABG pO2 ABG HCO3 ABG O2 Saturation ABG Base Excess ABG Oxyhemoglobin ABG Sodium ABG Chloride ABG Glucose Oxyhemoglobin Carboxyhemoglobin Sodium Potassium Chloride Carbon Dioxide BUN Creatinine Glucose 195 H POC Glucose Hemoglobin A1c Magnesium Ferritin 254.3 H AST ALT Alkaline Phosphatase Lactate Dehydrogenase 359 H C-Reactive Protein 15.20 H Total Protein Albumin Arterial Blood Glucose Coronavirus (PCR) 04/17/21 04/17/21 04/17/21 03:50 08:26 08:26 WBC MCV MCH MCHC RDW Lymph % (Auto) [place] % (Auto) Eos % (Auto) Lymph # (Auto) [place] # (Auto) Eos # (Auto) Baso # (Auto) Seg Neutrophils % Seg Neuts % (Manual) Lymphocytes % (Manual) Seg Neutrophils # Seg Neutrophils # Man Lymphocytes # (Manual) D-Dimer 262.48 H ABG pH POC ABG pCO2 POC ABG pO2 ABG pO2 ABG HCO3 ABG O2 Saturation ABG Base Excess ABG Oxyhemoglobin ABG Sodium ABG Chloride ABG Glucose Oxyhemoglobin Carboxyhemoglobin Sodium Potassium Chloride Carbon Dioxide BUN 20 H Creatinine 0.5 L Glucose 249 H 225 H POC Glucose Hemoglobin A1c Magnesium Ferritin AST ALT Alkaline Phosphatase Lactate Dehydrogenase 338 H C-Reactive Protein 17.20 H Total Protein Albumin 3.2 L Arterial Blood Glucose Coronavirus (PCR) 04/17/21 04/17/21 04/17/21 08:26 15:04 Unknown WBC MCV MCH MCHC RDW Lymph % (Auto) [place] % (Auto) Eos % (Auto) Lymph # (Auto) [place] # (Auto) Eos # (Auto) Baso # (Auto) Seg Neutrophils % Seg Neuts % (Manual) Lymphocytes % (Manual) Seg Neutrophils # Seg Neutrophils # Man Lymphocytes # (Manual) D-Dimer ABG pH POC ABG pCO2 POC ABG pO2 ABG pO2 ABG HCO3 ABG O2 Saturation ABG Base Excess ABG Oxyhemoglobin ABG Sodium ABG Chloride ABG Glucose Oxyhemoglobin Carboxyhemoglobin Sodium Potassium Chloride Carbon Dioxide BUN 20 H Creatinine 0.5 L Glucose 246 H POC Glucose Hemoglobin A1c Magnesium Ferritin 392.0 H AST ALT Alkaline Phosphatase Lactate Dehydrogenase C-Reactive Protein Total Protein 8.3 H Albumin 3.1 L Arterial Blood Glucose Coronavirus (PCR) Positive A 04/18/21 04/18/21 04/18/21 05:06 05:06 07:36 WBC 11.6 H MCV MCH MCHC RDW 16.1 H Lymph % (Auto) [place] % (Auto) Eos % (Auto) Lymph # (Auto) [place] # (Auto) Eos # (Auto) Baso # (Auto) Seg Neutrophils % Seg Neuts % (Manual) Lymphocytes % (Manual) Seg Neutrophils # Seg Neutrophils # Man Lymphocytes # (Manual) D-Dimer ABG pH POC ABG pCO2 POC ABG pO2 ABG pO2 ABG HCO3 ABG O2 Saturation ABG Base Excess ABG Oxyhemoglobin ABG Sodium ABG Chloride ABG Glucose Oxyhemoglobin Carboxyhemoglobin Sodium Potassium 5.2 H Chloride Carbon Dioxide BUN 22 H Creatinine 0.5 L Glucose 315 H POC Glucose Hemoglobin A1c 8.5 H Magnesium Ferritin AST ALT Alkaline Phosphatase Lactate Dehydrogenase C-Reactive Protein Total Protein Albumin 3.3 L Arterial Blood Glucose Coronavirus (PCR) 04/18/21 04/18/21 04/18/21 11:59 16:43 23:24 WBC MCV MCH MCHC RDW Lymph % (Auto) [place] % (Auto) Eos % (Auto) Lymph # (Auto) [place] # (Auto) Eos # (Auto) Baso # (Auto) Seg Neutrophils % Seg Neuts % (Manual) Lymphocytes % (Manual) Seg Neutrophils # Seg Neutrophils # Man Lymphocytes # (Manual) D-Dimer ABG pH POC ABG pCO2 POC ABG pO2 ABG pO2 ABG HCO3 ABG O2 Saturation ABG Base Excess ABG Oxyhemoglobin ABG Sodium ABG Chloride ABG Glucose Oxyhemoglobin Carboxyhemoglobin Sodium Potassium Chloride Carbon Dioxide BUN Creatinine Glucose POC Glucose 284 H 273 H 290 H Hemoglobin A1c Magnesium Ferritin AST ALT Alkaline Phosphatase Lactate Dehydrogenase C-Reactive Protein Total Protein Albumin Arterial Blood Glucose Coronavirus (PCR) 04/19/21 04/19/21 04/19/21 04:19 04:19 08:10 WBC MCV MCH MCHC RDW 15.7 H Lymph % (Auto) [place] % (Auto) Eos % (Auto) Lymph # (Auto) [place] # (Auto) Eos # (Auto) Baso # (Auto) Seg Neutrophils % Seg Neuts % (Manual) Lymphocytes % (Manual) Seg Neutrophils # Seg Neutrophils # Man Lymphocytes # (Manual) D-Dimer ABG pH POC ABG pCO2 POC ABG pO2 ABG pO2 ABG HCO3 ABG O2 Saturation ABG Base Excess ABG Oxyhemoglobin ABG Sodium ABG Chloride ABG Glucose Oxyhemoglobin Carboxyhemoglobin Sodium Potassium Chloride Carbon Dioxide BUN 27 H Creatinine 0.4 L Glucose 184 H POC Glucose 194 H Hemoglobin A1c Magnesium Ferritin AST ALT Alkaline Phosphatase Lactate Dehydrogenase C-Reactive Protein Total Protein Albumin 3.1 L Arterial Blood Glucose Coronavirus (PCR) 04/19/21 04/19/21 04/19/21 11:38 16:25 22:04 WBC MCV MCH MCHC RDW Lymph % (Auto) [place] % (Auto) Eos % (Auto) Lymph # (Auto) [place] # (Auto) Eos # (Auto) Baso # (Auto) Seg Neutrophils % Seg Neuts % (Manual) Lymphocytes % (Manual) Seg Neutrophils # Seg Neutrophils # Man Lymphocytes # (Manual) D-Dimer ABG pH POC ABG pCO2 POC ABG pO2 ABG pO2 ABG HCO3 ABG O2 Saturation ABG Base Excess ABG Oxyhemoglobin ABG Sodium ABG Chloride ABG Glucose Oxyhemoglobin Carboxyhemoglobin Sodium Potassium Chloride Carbon Dioxide BUN Creatinine Glucose POC Glucose 224 H 297 H 251 H Hemoglobin A1c Magnesium Ferritin AST ALT Alkaline Phosphatase Lactate Dehydrogenase C-Reactive Protein Total Protein Albumin Arterial Blood Glucose Coronavirus (PCR) 04/20/21 04/20/21 04/20/21 05:28 08:43 16:21 WBC MCV MCH MCHC RDW Lymph % (Auto) [place] % (Auto) Eos % (Auto) Lymph # (Auto) [place] # (Auto) Eos # (Auto) Baso # (Auto) Seg Neutrophils % Seg Neuts % (Manual) Lymphocytes % (Manual) Seg Neutrophils # Seg Neutrophils # Man Lymphocytes # (Manual) D-Dimer ABG pH POC ABG pCO2 POC ABG pO2 ABG pO2 ABG HCO3 ABG O2 Saturation ABG Base Excess ABG Oxyhemoglobin ABG Sodium ABG Chloride ABG Glucose Oxyhemoglobin Carboxyhemoglobin Sodium Potassium Chloride Carbon Dioxide BUN 27 H Creatinine Glucose 192 H POC Glucose 173 H 253 H Hemoglobin A1c Magnesium Ferritin AST ALT Alkaline Phosphatase Lactate Dehydrogenase C-Reactive Protein Total Protein Albumin 3.0 L Arterial Blood Glucose Coronavirus (PCR) 04/21/21 04/21/21 04/21/21 07:58 12:05 16:08 WBC MCV MCH MCHC RDW Lymph % (Auto) [place] % (Auto) Eos % (Auto) Lymph # (Auto) [place] # (Auto) Eos # (Auto) Baso # (Auto) Seg Neutrophils % Seg Neuts % (Manual) Lymphocytes % (Manual) Seg Neutrophils # Seg Neutrophils # Man Lymphocytes # (Manual) D-Dimer ABG pH POC ABG pCO2 POC ABG pO2 ABG pO2 ABG HCO3 ABG O2 Saturation ABG Base Excess ABG Oxyhemoglobin ABG Sodium ABG Chloride ABG Glucose Oxyhemoglobin Carboxyhemoglobin Sodium Potassium Chloride Carbon Dioxide BUN Creatinine Glucose POC Glucose 140 H 252 H 214 H Hemoglobin A1c Magnesium Ferritin AST ALT Alkaline Phosphatase Lactate Dehydrogenase C-Reactive Protein Total Protein Albumin Arterial Blood Glucose Coronavirus (PCR) 04/21/21 04/22/21 04/22/21 21:42 08:37 12:01 WBC MCV MCH MCHC RDW Lymph % (Auto) [place] % (Auto) Eos % (Auto) Lymph # (Auto) [place] # (Auto) Eos # (Auto) Baso # (Auto) Seg Neutrophils % Seg Neuts % (Manual) Lymphocytes % (Manual) Seg Neutrophils # Seg Neutrophils # Man Lymphocytes # (Manual) D-Dimer ABG pH 7.457 H POC ABG pCO2 POC ABG pO2 49.4 L ABG pO2 ABG HCO3 ABG O2 Saturation ABG Base Excess ABG Oxyhemoglobin 85.6 L ABG Sodium ABG Chloride ABG Glucose 121 H Oxyhemoglobin Carboxyhemoglobin 0.3 L Sodium Potassium Chloride Carbon Dioxide BUN Creatinine Glucose POC Glucose 162 H 227 H Hemoglobin A1c Magnesium Ferritin AST ALT Alkaline Phosphatase Lactate Dehydrogenase C-Reactive Protein Total Protein Albumin Arterial Blood Glucose 121 H Coronavirus (PCR) 04/22/21 04/22/21 04/23/21 16:26 22:23 04:52 WBC MCV MCH MCHC RDW 15.7 H Lymph % (Auto) [place] % (Auto) Eos % (Auto) Lymph # (Auto) [place] # (Auto) Eos # (Auto) Baso # (Auto) Seg Neutrophils % Seg Neuts % (Manual) Lymphocytes % (Manual) Seg Neutrophils # Seg Neutrophils # Man Lymphocytes # (Manual) D-Dimer ABG pH POC ABG pCO2 POC ABG pO2 ABG pO2 ABG HCO3 ABG O2 Saturation ABG Base Excess ABG Oxyhemoglobin ABG Sodium ABG Chloride ABG Glucose Oxyhemoglobin Carboxyhemoglobin Sodium Potassium Chloride Carbon Dioxide BUN Creatinine Glucose POC Glucose 200 H 136 H Hemoglobin A1c Magnesium Ferritin AST ALT Alkaline Phosphatase Lactate Dehydrogenase C-Reactive Protein Total Protein Albumin Arterial Blood Glucose Coronavirus (PCR) 04/23/21 04/23/21 04/23/21 04:52 12:06 17:41 WBC MCV MCH MCHC RDW Lymph % (Auto) [place] % (Auto) Eos % (Auto) Lymph # (Auto) [place] # (Auto) Eos # (Auto) Baso # (Auto) Seg Neutrophils % Seg Neuts % (Manual) Lymphocytes % (Manual) Seg Neutrophils # Seg Neutrophils # Man Lymphocytes # (Manual) D-Dimer ABG pH POC ABG pCO2 POC ABG pO2 ABG pO2 ABG HCO3 ABG O2 Saturation ABG Base Excess ABG Oxyhemoglobin ABG Sodium ABG Chloride ABG Glucose Oxyhemoglobin Carboxyhemoglobin Sodium 136 L Potassium Chloride 97.7 L Carbon Dioxide BUN 23 H Creatinine Glucose 101 H POC Glucose 202 H 169 H Hemoglobin A1c Magnesium Ferritin AST 46 H ALT Alkaline Phosphatase Lactate Dehydrogenase C-Reactive Protein Total Protein Albumin 3.3 L Arterial Blood Glucose Coronavirus (PCR) 04/23/21 04/24/21 04/24/21 23:08 05:17 08:38 WBC MCV MCH MCHC RDW Lymph % (Auto) [place] % (Auto) Eos % (Auto) Lymph # (Auto) [place] # (Auto) Eos # (Auto) Baso # (Auto) Seg Neutrophils % Seg Neuts % (Manual) Lymphocytes % (Manual) Seg Neutrophils # Seg Neutrophils # Man Lymphocytes # (Manual) D-Dimer ABG pH POC ABG pCO2 POC ABG pO2 ABG pO2 ABG HCO3 ABG O2 Saturation ABG Base Excess ABG Oxyhemoglobin ABG Sodium ABG Chloride ABG Glucose Oxyhemoglobin Carboxyhemoglobin Sodium Potassium Chloride Carbon Dioxide BUN Creatinine Glucose POC Glucose 111 H 108 H 126 H Hemoglobin A1c Magnesium Ferritin AST ALT Alkaline Phosphatase Lactate Dehydrogenase C-Reactive Protein Total Protein Albumin Arterial Blood Glucose Coronavirus (PCR) 04/24/21 04/24/21 04/24/21 11:54 17:57 21:23 WBC MCV MCH MCHC RDW Lymph % (Auto) [place] % (Auto) Eos % (Auto) Lymph # (Auto) [place] # (Auto) Eos # (Auto) Baso # (Auto) Seg Neutrophils % Seg Neuts % (Manual) Lymphocytes % (Manual) Seg Neutrophils # Seg Neutrophils # Man Lymphocytes # (Manual) D-Dimer ABG pH POC ABG pCO2 POC ABG pO2 ABG pO2 ABG HCO3 ABG O2 Saturation ABG Base Excess ABG Oxyhemoglobin ABG Sodium ABG Chloride ABG Glucose Oxyhemoglobin Carboxyhemoglobin Sodium Potassium Chloride Carbon Dioxide BUN Creatinine Glucose POC Glucose 147 H 177 H 138 H Hemoglobin A1c Magnesium Ferritin AST ALT Alkaline Phosphatase Lactate Dehydrogenase C-Reactive Protein Total Protein Albumin Arterial Blood Glucose Coronavirus (PCR) 04/25/21 04/25/21 04/25/21 07:06 11:23 15:43 WBC MCV MCH MCHC RDW Lymph % (Auto) [place] % (Auto) Eos % (Auto) Lymph # (Auto) [place] # (Auto) Eos # (Auto) Baso # (Auto) Seg Neutrophils % Seg Neuts % (Manual) Lymphocytes % (Manual) Seg Neutrophils # Seg Neutrophils # Man Lymphocytes # (Manual) D-Dimer ABG pH POC ABG pCO2 POC ABG pO2 ABG pO2 ABG HCO3 ABG O2 Saturation ABG Base Excess ABG Oxyhemoglobin ABG Sodium ABG Chloride ABG Glucose Oxyhemoglobin Carboxyhemoglobin Sodium Potassium Chloride Carbon Dioxide BUN Creatinine Glucose POC Glucose 147 H 169 H 227 H Hemoglobin A1c Magnesium Ferritin AST ALT Alkaline Phosphatase Lactate Dehydrogenase C-Reactive Protein Total Protein Albumin Arterial Blood Glucose Coronavirus (PCR) 04/25/21 04/26/21 04/26/21 21:22 02:45 05:15 WBC MCV MCH MCHC RDW Lymph % (Auto) [place] % (Auto) Eos % (Auto) Lymph # (Auto) [place] # (Auto) Eos # (Auto) Baso # (Auto) Seg Neutrophils % Seg Neuts % (Manual) Lymphocytes % (Manual) Seg Neutrophils # Seg Neutrophils # Man Lymphocytes # (Manual) D-Dimer ABG pH POC ABG pCO2 POC ABG pO2 70.7 L ABG pO2 ABG HCO3 ABG O2 Saturation ABG Base Excess ABG Oxyhemoglobin 93.0 L ABG Sodium 132.7 L ABG Chloride ABG Glucose 115 H Oxyhemoglobin Carboxyhemoglobin Sodium Potassium Chloride 95.8 L Carbon Dioxide 32 H BUN 20 H Creatinine Glucose 102 H POC Glucose 196 H Hemoglobin A1c Magnesium Ferritin AST ALT Alkaline Phosphatase Lactate Dehydrogenase C-Reactive Protein Total Protein Albumin Arterial Blood Glucose 115 H Coronavirus (PCR) 04/26/21 04/26/21 04/26/21 11:49 16:09 21:07 WBC MCV MCH MCHC RDW Lymph % (Auto) [place] % (Auto) Eos % (Auto) Lymph # (Auto) [place] # (Auto) Eos # (Auto) Baso # (Auto) Seg Neutrophils % Seg Neuts % (Manual) Lymphocytes % (Manual) Seg Neutrophils # Seg Neutrophils # Man Lymphocytes # (Manual) D-Dimer ABG pH POC ABG pCO2 POC ABG pO2 ABG pO2 ABG HCO3 ABG O2 Saturation ABG Base Excess ABG Oxyhemoglobin ABG Sodium ABG Chloride ABG Glucose Oxyhemoglobin Carboxyhemoglobin Sodium Potassium Chloride Carbon Dioxide BUN Creatinine Glucose POC Glucose 114 H 188 H 136 H Hemoglobin A1c Magnesium Ferritin AST ALT Alkaline Phosphatase Lactate Dehydrogenase C-Reactive Protein Total Protein Albumin Arterial Blood Glucose Coronavirus (PCR) 04/27/21 04/27/21 04/28/21 17:34 22:12 08:26 WBC MCV MCH MCHC RDW Lymph % (Auto) [place] % (Auto) Eos % (Auto) Lymph # (Auto) [place] # (Auto) Eos # (Auto) Baso # (Auto) Seg Neutrophils % Seg Neuts % (Manual) Lymphocytes % (Manual) Seg Neutrophils # Seg Neutrophils # Man Lymphocytes # (Manual) D-Dimer ABG pH POC ABG pCO2 POC ABG pO2 ABG pO2 ABG HCO3 ABG O2 Saturation ABG Base Excess ABG Oxyhemoglobin ABG Sodium ABG Chloride ABG Glucose Oxyhemoglobin Carboxyhemoglobin Sodium Potassium Chloride Carbon Dioxide BUN Creatinine Glucose POC Glucose 128 H 159 H 69 L Hemoglobin A1c Magnesium Ferritin AST ALT Alkaline Phosphatase Lactate Dehydrogenase C-Reactive Protein Total Protein Albumin Arterial Blood Glucose Coronavirus (PCR) 04/28/21 04/28/21 04/29/21 12:22 21:11 06:05 WBC MCV MCH MCHC RDW Lymph % (Auto) [place] % (Auto) Eos % (Auto) Lymph # (Auto) [place] # (Auto) Eos # (Auto) Baso # (Auto) Seg Neutrophils % Seg Neuts % (Manual) Lymphocytes % (Manual) Seg Neutrophils # Seg Neutrophils # Man Lymphocytes # (Manual) D-Dimer ABG pH POC ABG pCO2 POC ABG pO2 ABG pO2 ABG HCO3 ABG O2 Saturation ABG Base Excess ABG Oxyhemoglobin ABG Sodium ABG Chloride ABG Glucose Oxyhemoglobin Carboxyhemoglobin Sodium 132 L Potassium Chloride 94.4 L Carbon Dioxide BUN Creatinine 0.2 L D Glucose 140 H POC Glucose 141 H 171 H Hemoglobin A1c Magnesium Ferritin AST ALT Alkaline Phosphatase Lactate Dehydrogenase C-Reactive Protein Total Protein Albumin Arterial Blood Glucose Coronavirus (PCR) 04/29/21 04/29/21 04/29/21 06:05 07:24 11:36 WBC MCV MCH MCHC 35 H RDW 15.9 H Lymph % (Auto) [place] % (Auto) Eos % (Auto) Lymph # (Auto) [place] # (Auto) Eos # (Auto) Baso # (Auto) Seg Neutrophils % Seg Neuts % (Manual) Lymphocytes % (Manual) Seg Neutrophils # Seg Neutrophils # Man Lymphocytes # (Manual) D-Dimer ABG pH POC ABG pCO2 POC ABG pO2 ABG pO2 ABG HCO3 ABG O2 Saturation ABG Base Excess ABG Oxyhemoglobin ABG Sodium ABG Chloride ABG Glucose Oxyhemoglobin Carboxyhemoglobin Sodium Potassium Chloride Carbon Dioxide BUN Creatinine Glucose POC Glucose 141 H 220 H Hemoglobin A1c Magnesium Ferritin AST ALT Alkaline Phosphatase Lactate Dehydrogenase C-Reactive Protein Total Protein Albumin Arterial Blood Glucose Coronavirus (PCR) 04/29/21 04/29/21 04/29/21 14:23 15:30 17:06 WBC MCV MCH MCHC RDW Lymph % (Auto) [place] % (Auto) Eos % (Auto) Lymph # (Auto) [place] # (Auto) Eos # (Auto) Baso # (Auto) Seg Neutrophils % Seg Neuts % (Manual) Lymphocytes % (Manual) Seg Neutrophils # Seg Neutrophils # Man Lymphocytes # (Manual) D-Dimer ABG pH POC ABG pCO2 POC ABG pO2 ABG pO2 52.6 L ABG HCO3 ABG O2 Saturation 86.4 L ABG Base Excess ABG Oxyhemoglobin ABG Sodium ABG Chloride ABG Glucose Oxyhemoglobin 84.6 L Carboxyhemoglobin Sodium Potassium Chloride Carbon Dioxide BUN Creatinine Glucose POC Glucose 173 H 158 H Hemoglobin A1c Magnesium Ferritin AST ALT Alkaline Phosphatase Lactate Dehydrogenase C-Reactive Protein Total Protein Albumin Arterial Blood Glucose Coronavirus (PCR) 04/29/21 04/30/21 04/30/21 21:27 07:16 08:00 WBC MCV MCH MCHC RDW 16.1 H Lymph % (Auto) [place] % (Auto) Eos % (Auto) Lymph # (Auto) [place] # (Auto) Eos # (Auto) Baso # (Auto) Seg Neutrophils % Seg Neuts % (Manual) Lymphocytes % (Manual) Seg Neutrophils # Seg Neutrophils # Man Lymphocytes # (Manual) D-Dimer ABG pH POC ABG pCO2 POC ABG pO2 ABG pO2 ABG HCO3 ABG O2 Saturation ABG Base Excess ABG Oxyhemoglobin ABG Sodium ABG Chloride ABG Glucose Oxyhemoglobin Carboxyhemoglobin Sodium Potassium Chloride Carbon Dioxide BUN Creatinine Glucose POC Glucose 244 H 175 H Hemoglobin A1c Magnesium Ferritin AST ALT Alkaline Phosphatase Lactate Dehydrogenase C-Reactive Protein Total Protein Albumin Arterial Blood Glucose Coronavirus (PCR) 04/30/21 04/30/21 04/30/21 08:00 08:00 11:03 WBC MCV MCH MCHC RDW Lymph % (Auto) [place] % (Auto) Eos % (Auto) Lymph # (Auto) [place] # (Auto) Eos # (Auto) Baso # (Auto) Seg Neutrophils % Seg Neuts % (Manual) Lymphocytes % (Manual) Seg Neutrophils # Seg Neutrophils # Man Lymphocytes # (Manual) D-Dimer 1796.87 H ABG pH POC ABG pCO2 POC ABG pO2 ABG pO2 ABG HCO3 ABG O2 Saturation ABG Base Excess ABG Oxyhemoglobin ABG Sodium ABG Chloride ABG Glucose Oxyhemoglobin Carboxyhemoglobin Sodium 135 L Potassium Chloride 96.3 L Carbon Dioxide BUN Creatinine 0.2 L Glucose 153 H POC Glucose 183 H Hemoglobin A1c Magnesium Ferritin AST 41 H ALT 76 H Alkaline Phosphatase 160 H Lactate Dehydrogenase 522 H C-Reactive Protein Total Protein 6.1 L Albumin 3.1 L Arterial Blood Glucose Coronavirus (PCR) 04/30/21 04/30/21 05/01/21 17:04 22:17 05:39 WBC MCV MCH MCHC RDW Lymph % (Auto) [place] % (Auto) Eos % (Auto) Lymph # (Auto) [place] # (Auto) Eos # (Auto) Baso # (Auto) Seg Neutrophils % Seg Neuts % (Manual) Lymphocytes % (Manual) Seg Neutrophils # Seg Neutrophils # Man Lymphocytes # (Manual) D-Dimer ABG pH POC ABG pCO2 POC ABG pO2 ABG pO2 ABG HCO3 ABG O2 Saturation ABG Base Excess ABG Oxyhemoglobin ABG Sodium ABG Chloride ABG Glucose Oxyhemoglobin Carboxyhemoglobin Sodium 133 L Potassium Chloride 92.1 L Carbon Dioxide BUN 24 H Creatinine 0.4 L D Glucose 269 H POC Glucose 167 H 208 H Hemoglobin A1c Magnesium Ferritin AST ALT 66 H Alkaline Phosphatase 142 H Lactate Dehydrogenase C-Reactive Protein Total Protein Albumin 3.2 L Arterial Blood Glucose Coronavirus (PCR) 05/01/21 05/01/21 05/01/21 05:39 05:39 07:45 WBC MCV MCH MCHC RDW 16.0 H Lymph % (Auto) [place] % (Auto) Eos % (Auto) Lymph # (Auto) [place] # (Auto) Eos # (Auto) Baso # (Auto) Seg Neutrophils % Seg Neuts % (Manual) Lymphocytes % (Manual) Seg Neutrophils # Seg Neutrophils # Man Lymphocytes # (Manual) D-Dimer 3984.95 H ABG pH POC ABG pCO2 POC ABG pO2 ABG pO2 ABG HCO3 ABG O2 Saturation ABG Base Excess ABG Oxyhemoglobin ABG Sodium ABG Chloride ABG Glucose Oxyhemoglobin Carboxyhemoglobin Sodium Potassium Chloride Carbon Dioxide BUN Creatinine Glucose POC Glucose 229 H Hemoglobin A1c Magnesium Ferritin AST ALT Alkaline Phosphatase Lactate Dehydrogenase C-Reactive Protein Total Protein Albumin Arterial Blood Glucose Coronavirus (PCR) 05/01/21 05/01/21 05/01/21 12:10 15:46 21:06 WBC MCV MCH MCHC RDW Lymph % (Auto) [place] % (Auto) Eos % (Auto) Lymph # (Auto) [place] # (Auto) Eos # (Auto) Baso # (Auto) Seg Neutrophils % Seg Neuts % (Manual) Lymphocytes % (Manual) Seg Neutrophils # Seg Neutrophils # Man Lymphocytes # (Manual) D-Dimer ABG pH POC ABG pCO2 POC ABG pO2 ABG pO2 ABG HCO3 ABG O2 Saturation ABG Base Excess ABG Oxyhemoglobin ABG Sodium ABG Chloride ABG Glucose Oxyhemoglobin Carboxyhemoglobin Sodium Potassium Chloride Carbon Dioxide BUN Creatinine Glucose POC Glucose 296 H 279 H 232 H Hemoglobin A1c Magnesium Ferritin AST ALT Alkaline Phosphatase Lactate Dehydrogenase C-Reactive Protein Total Protein Albumin Arterial Blood Glucose Coronavirus (PCR) 05/02/21 05/02/21 05/02/21 04:55 04:55 04:55 WBC MCV MCH MCHC RDW 16.1 H Lymph % (Auto) [place] % (Auto) Eos % (Auto) Lymph # (Auto) [place] # (Auto) Eos # (Auto) Baso # (Auto) Seg Neutrophils % Seg Neuts % (Manual) Lymphocytes % (Manual) Seg Neutrophils # Seg Neutrophils # Man Lymphocytes # (Manual) D-Dimer 1401.08 H ABG pH POC ABG pCO2 POC ABG pO2 ABG pO2 ABG HCO3 ABG O2 Saturation ABG Base Excess ABG Oxyhemoglobin ABG Sodium ABG Chloride ABG Glucose Oxyhemoglobin Carboxyhemoglobin Sodium 131 L Potassium Chloride 95.5 L Carbon Dioxide BUN 20 H Creatinine 0.3 L Glucose 288 H POC Glucose Hemoglobin A1c Magnesium Ferritin AST ALT Alkaline Phosphatase Lactate Dehydrogenase C-Reactive Protein Total Protein 6.0 L Albumin 3.1 L Arterial Blood Glucose Coronavirus (PCR) 05/02/21 05/02/21 05/02/21 07:53 11:45 15:25 WBC MCV MCH MCHC RDW Lymph % (Auto) [place] % (Auto) Eos % (Auto) Lymph # (Auto) [place] # (Auto) Eos # (Auto) Baso # (Auto) Seg Neutrophils % Seg Neuts % (Manual) Lymphocytes % (Manual) Seg Neutrophils # Seg Neutrophils # Man Lymphocytes # (Manual) D-Dimer ABG pH POC ABG pCO2 POC ABG pO2 ABG pO2 ABG HCO3 ABG O2 Saturation ABG Base Excess ABG Oxyhemoglobin ABG Sodium ABG Chloride ABG Glucose Oxyhemoglobin Carboxyhemoglobin Sodium Potassium Chloride Carbon Dioxide BUN Creatinine Glucose POC Glucose 180 H 228 H 275 H Hemoglobin A1c Magnesium Ferritin AST ALT Alkaline Phosphatase Lactate Dehydrogenase C-Reactive Protein Total Protein Albumin Arterial Blood Glucose Coronavirus (PCR) 05/02/21 05/03/21 05/03/21 22:56 04:30 04:49 WBC MCV MCH MCHC RDW Lymph % (Auto) [place] % (Auto) Eos % (Auto) Lymph # (Auto) [place] # (Auto) Eos # (Auto) Baso # (Auto) Seg Neutrophils % Seg Neuts % (Manual) Lymphocytes % (Manual) Seg Neutrophils # Seg Neutrophils # Man Lymphocytes # (Manual) D-Dimer ABG pH 7.229 L POC ABG pCO2 POC ABG pO2 65.3 L ABG pO2 ABG HCO3 ABG O2 Saturation ABG Base Excess ABG Oxyhemoglobin 87.8 L ABG Sodium 133.0 L ABG Chloride 97.0 L ABG Glucose 403 H Oxyhemoglobin Carboxyhemoglobin Sodium 130 L Potassium Chloride 94.9 L Carbon Dioxide BUN 20 H Creatinine 0.5 L D Glucose 359 H POC Glucose 293 H Hemoglobin A1c Magnesium Ferritin AST 54 H ALT 75 H Alkaline Phosphatase 138 H Lactate Dehydrogenase C-Reactive Protein Total Protein Albumin 3.6 L Arterial Blood Glucose 403 H Coronavirus (PCR) 05/03/21 05/03/21 05/03/21 05:27 11:26 17:57 WBC MCV MCH MCHC RDW Lymph % (Auto) [place] % (Auto) Eos % (Auto) Lymph # (Auto) [place] # (Auto) Eos # (Auto) Baso # (Auto) Seg Neutrophils % Seg Neuts % (Manual) Lymphocytes % (Manual) Seg Neutrophils # Seg Neutrophils # Man Lymphocytes # (Manual) D-Dimer ABG pH POC ABG pCO2 POC ABG pO2 ABG pO2 ABG HCO3 ABG O2 Saturation ABG Base Excess ABG Oxyhemoglobin ABG Sodium ABG Chloride ABG Glucose Oxyhemoglobin Carboxyhemoglobin Sodium Potassium Chloride Carbon Dioxide BUN Creatinine Glucose POC Glucose 361 H 297 H 226 H Hemoglobin A1c Magnesium Ferritin AST ALT Alkaline Phosphatase Lactate Dehydrogenase C-Reactive Protein Total Protein Albumin Arterial Blood Glucose Coronavirus (PCR) 05/03/21 05/04/21 05/04/21 23:12 05:12 07:30 WBC MCV MCH MCHC RDW Lymph % (Auto) [place] % (Auto) Eos % (Auto) Lymph # (Auto) [place] # (Auto) Eos # (Auto) Baso # (Auto) Seg Neutrophils % Seg Neuts % (Manual) Lymphocytes % (Manual) Seg Neutrophils # Seg Neutrophils # Man Lymphocytes # (Manual) D-Dimer ABG pH POC ABG pCO2 POC ABG pO2 ABG pO2 ABG HCO3 ABG O2 Saturation ABG Base Excess ABG Oxyhemoglobin ABG Sodium ABG Chloride ABG Glucose Oxyhemoglobin Carboxyhemoglobin Sodium Potassium Chloride Carbon Dioxide BUN Creatinine Glucose POC Glucose 282 H 285 H 254 H Hemoglobin A1c Magnesium Ferritin AST ALT Alkaline Phosphatase Lactate Dehydrogenase C-Reactive Protein Total Protein Albumin Arterial Blood Glucose Coronavirus (PCR) 05/04/21 05/04/21 05/04/21 08:58 11:45 16:07 WBC MCV MCH MCHC RDW Lymph % (Auto) [place] % (Auto) Eos % (Auto) Lymph # (Auto) [place] # (Auto) Eos # (Auto) Baso # (Auto) Seg Neutrophils % Seg Neuts % (Manual) Lymphocytes % (Manual) Seg Neutrophils # Seg Neutrophils # Man Lymphocytes # (Manual) D-Dimer ABG pH POC ABG pCO2 POC ABG pO2 ABG pO2 ABG HCO3 ABG O2 Saturation ABG Base Excess ABG Oxyhemoglobin ABG Sodium ABG Chloride ABG Glucose Oxyhemoglobin Carboxyhemoglobin Sodium 134 L Potassium Chloride Carbon Dioxide BUN 20 H Creatinine 0.3 L Glucose 267 H POC Glucose 244 H 297 H Hemoglobin A1c Magnesium Ferritin AST ALT Alkaline Phosphatase Lactate Dehydrogenase C-Reactive Protein Total Protein 6.0 L Albumin 3.2 L Arterial Blood Glucose Coronavirus (PCR) 05/04/21 05/05/21 05/05/21 23:32 05:00 05:13 WBC MCV MCH MCHC RDW Lymph % (Auto) [place] % (Auto) Eos % (Auto) Lymph # (Auto) [place] # (Auto) Eos # (Auto) Baso # (Auto) Seg Neutrophils % Seg Neuts % (Manual) Lymphocytes % (Manual) Seg Neutrophils # Seg Neutrophils # Man Lymphocytes # (Manual) D-Dimer ABG pH POC ABG pCO2 POC ABG pO2 ABG pO2 ABG HCO3 ABG O2 Saturation ABG Base Excess ABG Oxyhemoglobin ABG Sodium ABG Chloride ABG Glucose Oxyhemoglobin Carboxyhemoglobin Sodium 132 L Potassium Chloride 96.4 L Carbon Dioxide BUN 22 H Creatinine 0.3 L Glucose 228 H POC Glucose 154 H 260 H Hemoglobin A1c Magnesium Ferritin AST ALT 67 H Alkaline Phosphatase Lactate Dehydrogenase C-Reactive Protein Total Protein 6.1 L Albumin 3.2 L Arterial Blood Glucose Coronavirus (PCR) 05/05/21 05/05/21 05/05/21 11:32 17:49 23:07 WBC MCV MCH MCHC RDW Lymph % (Auto) [place] % (Auto) Eos % (Auto) Lymph # (Auto) [place] # (Auto) Eos # (Auto) Baso # (Auto) Seg Neutrophils % Seg Neuts % (Manual) Lymphocytes % (Manual) Seg Neutrophils # Seg Neutrophils # Man Lymphocytes # (Manual) D-Dimer ABG pH POC ABG pCO2 POC ABG pO2 ABG pO2 ABG HCO3 ABG O2 Saturation ABG Base Excess ABG Oxyhemoglobin ABG Sodium ABG Chloride ABG Glucose Oxyhemoglobin Carboxyhemoglobin Sodium Potassium Chloride Carbon Dioxide BUN Creatinine Glucose POC Glucose 279 H 308 H 213 H Hemoglobin A1c Magnesium Ferritin AST ALT Alkaline Phosphatase Lactate Dehydrogenase C-Reactive Protein Total Protein Albumin Arterial Blood Glucose Coronavirus (PCR) 05/06/21 05/06/21 05/06/21 05:00 05:00 05:20 WBC MCV MCH MCHC RDW 16.8 H Lymph % (Auto) [place] % (Auto) Eos % (Auto) Lymph # (Auto) [place] # (Auto) Eos # (Auto) Baso # (Auto) Seg Neutrophils % Seg Neuts % (Manual) 99.0 H Lymphocytes % (Manual) Seg Neutrophils # Seg Neutrophils # Man 10.9 H Lymphocytes # (Manual) 0.0 L D-Dimer ABG pH POC ABG pCO2 POC ABG pO2 ABG pO2 ABG HCO3 ABG O2 Saturation ABG Base Excess ABG Oxyhemoglobin ABG Sodium ABG Chloride ABG Glucose Oxyhemoglobin Carboxyhemoglobin Sodium 133 L Potassium Chloride Carbon Dioxide BUN 21 H Creatinine 0.3 L Glucose 259 H POC Glucose 308 H Hemoglobin A1c Magnesium Ferritin AST ALT Alkaline Phosphatase Lactate Dehydrogenase C-Reactive Protein Total Protein Albumin 3.2 L Arterial Blood Glucose Coronavirus (PCR) 05/06/21 05/06/21 05/06/21 11:24 17:54 21:32 WBC MCV MCH MCHC RDW Lymph % (Auto) [place] % (Auto) Eos % (Auto) Lymph # (Auto) [place] # (Auto) Eos # (Auto) Baso # (Auto) Seg Neutrophils % Seg Neuts % (Manual) Lymphocytes % (Manual) Seg Neutrophils # Seg Neutrophils # Man Lymphocytes # (Manual) D-Dimer ABG pH POC ABG pCO2 POC ABG pO2 ABG pO2 ABG HCO3 ABG O2 Saturation ABG Base Excess ABG Oxyhemoglobin ABG Sodium ABG Chloride ABG Glucose Oxyhemoglobin Carboxyhemoglobin Sodium Potassium Chloride Carbon Dioxide BUN Creatinine Glucose POC Glucose 262 H 124 H 246 H Hemoglobin A1c Magnesium Ferritin AST ALT Alkaline Phosphatase Lactate Dehydrogenase C-Reactive Protein Total Protein Albumin Arterial Blood Glucose Coronavirus (PCR) 05/06/21 05/07/21 05/07/21 23:10 04:54 04:54 WBC MCV MCH MCHC RDW Lymph % (Auto) [place] % (Auto) Eos % (Auto) Lymph # (Auto) [place] # (Auto) Eos # (Auto) Baso # (Auto) Seg Neutrophils % Seg Neuts % (Manual) Lymphocytes % (Manual) Seg Neutrophils # Seg Neutrophils # Man Lymphocytes # (Manual) D-Dimer 1609.28 H ABG pH POC ABG pCO2 POC ABG pO2 ABG pO2 ABG HCO3 ABG O2 Saturation ABG Base Excess ABG Oxyhemoglobin ABG Sodium ABG Chloride ABG Glucose Oxyhemoglobin Carboxyhemoglobin Sodium 136 L Potassium Chloride Carbon Dioxide BUN 23 H Creatinine 0.3 L Glucose 110 H POC Glucose 249 H Hemoglobin A1c Magnesium Ferritin AST ALT Alkaline Phosphatase Lactate Dehydrogenase C-Reactive Protein Total Protein 6.2 L Albumin 3.0 L Arterial Blood Glucose Coronavirus (PCR) 05/07/21 05/07/21 05/07/21 04:54 04:54 11:41 WBC MCV MCH MCHC RDW Lymph % (Auto) [place] % (Auto) Eos % (Auto) Lymph # (Auto) [place] # (Auto) Eos # (Auto) Baso # (Auto) Seg Neutrophils % Seg Neuts % (Manual) Lymphocytes % (Manual) Seg Neutrophils # Seg Neutrophils # Man Lymphocytes # (Manual) D-Dimer ABG pH POC ABG pCO2 POC ABG pO2 ABG pO2 ABG HCO3 ABG O2 Saturation ABG Base Excess ABG Oxyhemoglobin ABG Sodium ABG Chloride ABG Glucose Oxyhemoglobin Carboxyhemoglobin Sodium Potassium Chloride Carbon Dioxide BUN Creatinine Glucose POC Glucose 118 H Hemoglobin A1c Magnesium Ferritin 296.1 H AST ALT Alkaline Phosphatase Lactate Dehydrogenase 724 H C-Reactive Protein Total Protein Albumin Arterial Blood Glucose Coronavirus (PCR) 05/07/21 05/07/21 05/08/21 16:43 22:34 06:44 WBC MCV MCH MCHC RDW Lymph % (Auto) [place] % (Auto) Eos % (Auto) Lymph # (Auto) [place] # (Auto) Eos # (Auto) Baso # (Auto) Seg Neutrophils % Seg Neuts % (Manual) Lymphocytes % (Manual) Seg Neutrophils # Seg Neutrophils # Man Lymphocytes # (Manual) D-Dimer ABG pH POC ABG pCO2 POC ABG pO2 ABG pO2 ABG HCO3 ABG O2 Saturation ABG Base Excess ABG Oxyhemoglobin ABG Sodium ABG Chloride ABG Glucose Oxyhemoglobin Carboxyhemoglobin Sodium Potassium Chloride Carbon Dioxide BUN Creatinine Glucose POC Glucose 159 H 233 H 235 H Hemoglobin A1c Magnesium Ferritin AST ALT Alkaline Phosphatase Lactate Dehydrogenase C-Reactive Protein Total Protein Albumin Arterial Blood Glucose Coronavirus (PCR) 05/08/21 05/08/21 05/08/21 07:49 11:56 17:13 WBC MCV MCH MCHC RDW Lymph % (Auto) [place] % (Auto) Eos % (Auto) Lymph # (Auto) [place] # (Auto) Eos # (Auto) Baso # (Auto) Seg Neutrophils % Seg Neuts % (Manual) Lymphocytes % (Manual) Seg Neutrophils # Seg Neutrophils # Man Lymphocytes # (Manual) D-Dimer ABG pH POC ABG pCO2 POC ABG pO2 ABG pO2 ABG HCO3 ABG O2 Saturation ABG Base Excess ABG Oxyhemoglobin ABG Sodium ABG Chloride ABG Glucose Oxyhemoglobin Carboxyhemoglobin Sodium Potassium Chloride Carbon Dioxide BUN Creatinine Glucose POC Glucose 219 H 184 H 182 H Hemoglobin A1c Magnesium Ferritin AST ALT Alkaline Phosphatase Lactate Dehydrogenase C-Reactive Protein Total Protein Albumin Arterial Blood Glucose Coronavirus (PCR) 08/25/21 08/26/21 08/26/21 23:35 05:20 05:20 WBC MCV MCH MCHC RDW Lymph % (Auto) [place] % (Auto) Eos % (Auto) Lymph # (Auto) [place] # (Auto) Eos # (Auto) Baso # (Auto) Seg Neutrophils % Seg Neuts % (Manual) Lymphocytes % (Manual) Seg Neutrophils # Seg Neutrophils # Man Lymphocytes # (Manual) D-Dimer 1003.87 H ABG pH POC ABG pCO2 POC ABG pO2 ABG pO2 ABG HCO3 ABG O2 Saturation ABG Base Excess ABG Oxyhemoglobin ABG Sodium ABG Chloride ABG Glucose Oxyhemoglobin Carboxyhemoglobin Sodium Potassium Chloride Carbon Dioxide BUN Creatinine Glucose POC Glucose 198 H Hemoglobin A1c Magnesium Ferritin 378.7 H AST ALT Alkaline Phosphatase Lactate Dehydrogenase C-Reactive Protein Total Protein Albumin Arterial Blood Glucose Coronavirus (PCR) 05/09/21 05/09/21 05/09/21 05:20 06:04 12:53 WBC MCV MCH MCHC RDW Lymph % (Auto) [place] % (Auto) Eos % (Auto) Lymph # (Auto) [place] # (Auto) Eos # (Auto) Baso # (Auto) Seg Neutrophils % Seg Neuts % (Manual) Lymphocytes % (Manual) Seg Neutrophils # Seg Neutrophils # Man Lymphocytes # (Manual) D-Dimer ABG pH POC ABG pCO2 POC ABG pO2 ABG pO2 ABG HCO3 ABG O2 Saturation ABG Base Excess ABG Oxyhemoglobin ABG Sodium ABG Chloride ABG Glucose Oxyhemoglobin Carboxyhemoglobin Sodium Potassium Chloride Carbon Dioxide BUN Creatinine Glucose POC Glucose 159 H 180 H Hemoglobin A1c Magnesium Ferritin AST ALT Alkaline Phosphatase Lactate Dehydrogenase 558 H C-Reactive Protein 2.40 H Total Protein Albumin Arterial Blood Glucose Coronavirus (PCR) 05/09/21 05/09/21 05/10/21 16:43 21:27 10:18 WBC MCV MCH MCHC RDW Lymph % (Auto) [place] % (Auto) Eos % (Auto) Lymph # (Auto) [place] # (Auto) Eos # (Auto) Baso # (Auto) Seg Neutrophils % Seg Neuts % (Manual) Lymphocytes % (Manual) Seg Neutrophils # Seg Neutrophils # Man Lymphocytes # (Manual) D-Dimer ABG pH POC ABG pCO2 POC ABG pO2 ABG pO2 ABG HCO3 ABG O2 Saturation ABG Base Excess ABG Oxyhemoglobin ABG Sodium ABG Chloride ABG Glucose Oxyhemoglobin Carboxyhemoglobin Sodium Potassium Chloride Carbon Dioxide BUN Creatinine Glucose POC Glucose 212 H 285 H 261 H Hemoglobin A1c Magnesium Ferritin AST ALT Alkaline Phosphatase Lactate Dehydrogenase C-Reactive Protein Total Protein Albumin Arterial Blood Glucose Coronavirus (PCR) 05/10/21 05/10/21 05/11/21 17:58 18:02 00:29 WBC MCV MCH MCHC RDW Lymph % (Auto) [place] % (Auto) Eos % (Auto) Lymph # (Auto) [place] # (Auto) Eos # (Auto) Baso # (Auto) Seg Neutrophils % Seg Neuts % (Manual) Lymphocytes % (Manual) Seg Neutrophils # Seg Neutrophils # Man Lymphocytes # (Manual) D-Dimer ABG pH POC ABG pCO2 POC ABG pO2 ABG pO2 ABG HCO3 ABG O2 Saturation ABG Base Excess ABG Oxyhemoglobin ABG Sodium ABG Chloride ABG Glucose Oxyhemoglobin Carboxyhemoglobin Sodium Potassium Chloride Carbon Dioxide BUN Creatinine Glucose POC Glucose 213 H 179 H 149 H Hemoglobin A1c Magnesium Ferritin AST ALT Alkaline Phosphatase Lactate Dehydrogenase C-Reactive Protein Total Protein Albumin Arterial Blood Glucose Coronavirus (PCR) 05/11/21 05/11/21 05/11/21 05:22 11:32 17:00 WBC 14.9 H MCV MCH MCHC RDW 18.9 H Lymph % (Auto) 4.9 L [place] % (Auto) Eos % (Auto) Lymph # (Auto) 0.7 L [place] # (Auto) Eos # (Auto) Baso # (Auto) 0.2 H Seg Neutrophils % Seg Neuts % (Manual) Lymphocytes % (Manual) Seg Neutrophils # 13.3 H Seg Neutrophils # Man Lymphocytes # (Manual) D-Dimer ABG pH POC ABG pCO2 POC ABG pO2 ABG pO2 ABG HCO3 ABG O2 Saturation ABG Base Excess ABG Oxyhemoglobin ABG Sodium ABG Chloride ABG Glucose Oxyhemoglobin Carboxyhemoglobin Sodium Potassium Chloride Carbon Dioxide BUN Creatinine Glucose POC Glucose 162 H 179 H Hemoglobin A1c Magnesium Ferritin AST ALT Alkaline Phosphatase Lactate Dehydrogenase C-Reactive Protein Total Protein Albumin Arterial Blood Glucose Coronavirus (PCR) 05/11/21 05/11/21 05/11/21 17:00 17:33 22:03 WBC MCV MCH MCHC RDW Lymph % (Auto) [place] % (Auto) Eos % (Auto) Lymph # (Auto) [place] # (Auto) Eos # (Auto) Baso # (Auto) Seg Neutrophils % Seg Neuts % (Manual) Lymphocytes % (Manual) Seg Neutrophils # Seg Neutrophils # Man Lymphocytes # (Manual) D-Dimer ABG pH POC ABG pCO2 POC ABG pO2 ABG pO2 ABG HCO3 ABG O2 Saturation ABG Base Excess ABG Oxyhemoglobin ABG Sodium ABG Chloride ABG Glucose Oxyhemoglobin Carboxyhemoglobin Sodium 135 L Potassium Chloride 97.3 L Carbon Dioxide BUN 21 H Creatinine 0.3 L Glucose 133 H POC Glucose 140 H 282 H Hemoglobin A1c Magnesium Ferritin AST ALT 60 H Alkaline Phosphatase Lactate Dehydrogenase C-Reactive Protein Total Protein Albumin 3.1 L Arterial Blood Glucose Coronavirus (PCR) 05/12/21 05/12/21 05/12/21 04:05 04:05 04:05 WBC MCV MCH MCHC RDW 18.4 H Lymph % (Auto) [place] % (Auto) Eos % (Auto) Lymph # (Auto) [place] # (Auto) Eos # (Auto) Baso # (Auto) Seg Neutrophils % Seg Neuts % (Manual) 94.0 H Lymphocytes % (Manual) 4.0 L Seg Neutrophils # Seg Neutrophils # Man Lymphocytes # (Manual) 0.3 L D-Dimer ABG pH POC ABG pCO2 POC ABG pO2 ABG pO2 ABG HCO3 ABG O2 Saturation ABG Base Excess ABG Oxyhemoglobin ABG Sodium ABG Chloride ABG Glucose Oxyhemoglobin Carboxyhemoglobin Sodium 136 L Potassium Chloride Carbon Dioxide BUN 18 H Creatinine 0.2 L Glucose 142 H POC Glucose Hemoglobin A1c Magnesium Ferritin 350.7 H AST ALT Alkaline Phosphatase Lactate Dehydrogenase 546 H C-Reactive Protein Total Protein 6.1 L Albumin 3.0 L Arterial Blood Glucose Coronavirus (PCR) 05/12/21 05/12/21 05/12/21 05:11 11:17 16:27 WBC MCV MCH MCHC RDW Lymph % (Auto) [place] % (Auto) Eos % (Auto) Lymph # (Auto) [place] # (Auto) Eos # (Auto) Baso # (Auto) Seg Neutrophils % Seg Neuts % (Manual) Lymphocytes % (Manual) Seg Neutrophils # Seg Neutrophils # Man Lymphocytes # (Manual) D-Dimer ABG pH POC ABG pCO2 POC ABG pO2 ABG pO2 ABG HCO3 ABG O2 Saturation ABG Base Excess ABG Oxyhemoglobin ABG Sodium ABG Chloride ABG Glucose Oxyhemoglobin Carboxyhemoglobin Sodium Potassium Chloride Carbon Dioxide BUN Creatinine Glucose POC Glucose 152 H 190 H 261 H Hemoglobin A1c Magnesium Ferritin AST ALT Alkaline Phosphatase Lactate Dehydrogenase C-Reactive Protein Total Protein Albumin Arterial Blood Glucose Coronavirus (PCR) 05/12/21 05/13/21 05/13/21 20:55 11:08 21:41 WBC MCV MCH MCHC RDW Lymph % (Auto) [place] % (Auto) Eos % (Auto) Lymph # (Auto) [place] # (Auto) Eos # (Auto) Baso # (Auto) Seg Neutrophils % Seg Neuts % (Manual) Lymphocytes % (Manual) Seg Neutrophils # Seg Neutrophils # Man Lymphocytes # (Manual) D-Dimer ABG pH POC ABG pCO2 POC ABG pO2 ABG pO2 ABG HCO3 ABG O2 Saturation ABG Base Excess ABG Oxyhemoglobin ABG Sodium ABG Chloride ABG Glucose Oxyhemoglobin Carboxyhemoglobin Sodium Potassium Chloride Carbon Dioxide BUN Creatinine Glucose POC Glucose 231 H 106 H 174 H Hemoglobin A1c Magnesium Ferritin AST ALT Alkaline Phosphatase Lactate Dehydrogenase C-Reactive Protein Total Protein Albumin Arterial Blood Glucose Coronavirus (PCR) 05/14/21 05/14/21 05/14/21 00:53 02:23 06:06 WBC MCV MCH MCHC RDW Lymph % (Auto) [place] % (Auto) Eos % (Auto) Lymph # (Auto) [place] # (Auto) Eos # (Auto) Baso # (Auto) Seg Neutrophils % Seg Neuts % (Manual) Lymphocytes % (Manual) Seg Neutrophils # Seg Neutrophils # Man Lymphocytes # (Manual) D-Dimer ABG pH POC ABG pCO2 POC ABG pO2 ABG pO2 130.3 H ABG HCO3 30.6 H ABG O2 Saturation ABG Base Excess 4.9 H ABG Oxyhemoglobin ABG Sodium ABG Chloride ABG Glucose Oxyhemoglobin Carboxyhemoglobin Sodium Potassium Chloride Carbon Dioxide BUN Creatinine Glucose POC Glucose 229 H 119 H Hemoglobin A1c Magnesium Ferritin AST ALT Alkaline Phosphatase Lactate Dehydrogenase C-Reactive Protein Total Protein Albumin Arterial Blood Glucose Coronavirus (PCR) 05/14/21 05/14/21 05/14/21 07:13 07:13 07:13 WBC MCV MCH MCHC RDW Lymph % (Auto) [place] % (Auto) Eos % (Auto) Lymph # (Auto) [place] # (Auto) Eos # (Auto) Baso # (Auto) Seg Neutrophils % Seg Neuts % (Manual) Lymphocytes % (Manual) Seg Neutrophils # Seg Neutrophils # Man Lymphocytes # (Manual) D-Dimer 712.80 H ABG pH POC ABG pCO2 POC ABG pO2 ABG pO2 ABG HCO3 ABG O2 Saturation ABG Base Excess ABG Oxyhemoglobin ABG Sodium ABG Chloride ABG Glucose Oxyhemoglobin Carboxyhemoglobin Sodium 133 L Potassium Chloride 95.5 L Carbon Dioxide 32 H BUN Creatinine 0.2 L Glucose 137 H POC Glucose Hemoglobin A1c Magnesium Ferritin 283.5 H AST ALT 63 H Alkaline Phosphatase Lactate Dehydrogenase 563 H C-Reactive Protein Total Protein 6.1 L Albumin 3.0 L Arterial Blood Glucose Coronavirus (PCR) 05/14/21 05/14/21 05/14/21 12:21 15:33 21:50 WBC MCV MCH MCHC RDW Lymph % (Auto) [place] % (Auto) Eos % (Auto) Lymph # (Auto) [place] # (Auto) Eos # (Auto) Baso # (Auto) Seg Neutrophils % Seg Neuts % (Manual) Lymphocytes % (Manual) Seg Neutrophils # Seg Neutrophils # Man Lymphocytes # (Manual) D-Dimer ABG pH POC ABG pCO2 POC ABG pO2 ABG pO2 ABG HCO3 ABG O2 Saturation ABG Base Excess ABG Oxyhemoglobin ABG Sodium ABG Chloride ABG Glucose Oxyhemoglobin Carboxyhemoglobin Sodium Potassium Chloride Carbon Dioxide BUN Creatinine Glucose POC Glucose 143 H 204 H 202 H Hemoglobin A1c Magnesium Ferritin AST ALT Alkaline Phosphatase Lactate Dehydrogenase C-Reactive Protein Total Protein Albumin Arterial Blood Glucose Coronavirus (PCR) 05/15/21 05/15/21 05/15/21 05:05 11:12 16:39 WBC MCV MCH MCHC RDW Lymph % (Auto) [place] % (Auto) Eos % (Auto) Lymph # (Auto) [place] # (Auto) Eos # (Auto) Baso # (Auto) Seg Neutrophils % Seg Neuts % (Manual) Lymphocytes % (Manual) Seg Neutrophils # Seg Neutrophils # Man Lymphocytes # (Manual) D-Dimer ABG pH POC ABG pCO2 POC ABG pO2 ABG pO2 ABG HCO3 ABG O2 Saturation ABG Base Excess ABG Oxyhemoglobin ABG Sodium ABG Chloride ABG Glucose Oxyhemoglobin Carboxyhemoglobin Sodium Potassium Chloride Carbon Dioxide BUN Creatinine Glucose POC Glucose 125 H 201 H 241 H Hemoglobin A1c Magnesium Ferritin AST ALT Alkaline Phosphatase Lactate Dehydrogenase C-Reactive Protein Total Protein Albumin Arterial Blood Glucose Coronavirus (PCR) 05/15/21 05/16/21 05/16/21 21:31 05:04 10:40 WBC MCV MCH MCHC RDW Lymph % (Auto) [place] % (Auto) Eos % (Auto) Lymph # (Auto) [place] # (Auto) Eos # (Auto) Baso # (Auto) Seg Neutrophils % Seg Neuts % (Manual) Lymphocytes % (Manual) Seg Neutrophils # Seg Neutrophils # Man Lymphocytes # (Manual) D-Dimer ABG pH POC ABG pCO2 POC ABG pO2 ABG pO2 ABG HCO3 ABG O2 Saturation ABG Base Excess ABG Oxyhemoglobin ABG Sodium ABG Chloride ABG Glucose Oxyhemoglobin Carboxyhemoglobin Sodium Potassium Chloride Carbon Dioxide BUN Creatinine Glucose POC Glucose 234 H 123 H 231 H Hemoglobin A1c Magnesium Ferritin AST ALT Alkaline Phosphatase Lactate Dehydrogenase C-Reactive Protein Total Protein Albumin Arterial Blood Glucose Coronavirus (PCR) 05/16/21 05/16/21 05/17/21 18:23 21:29 06:20 WBC MCV MCH MCHC RDW 18.8 H Lymph % (Auto) 10.2 L [place] % (Auto) Eos % (Auto) Lymph # (Auto) 0.8 L [place] # (Auto) Eos # (Auto) Baso # (Auto) Seg Neutrophils % 85.8 H Seg Neuts % (Manual) Lymphocytes % (Manual) Seg Neutrophils # Seg Neutrophils # Man Lymphocytes # (Manual) D-Dimer ABG pH POC ABG pCO2 POC ABG pO2 ABG pO2 ABG HCO3 ABG O2 Saturation ABG Base Excess ABG Oxyhemoglobin ABG Sodium ABG Chloride ABG Glucose Oxyhemoglobin Carboxyhemoglobin Sodium Potassium Chloride Carbon Dioxide BUN Creatinine Glucose POC Glucose 266 H 234 H Hemoglobin A1c Magnesium Ferritin AST ALT Alkaline Phosphatase Lactate Dehydrogenase C-Reactive Protein Total Protein Albumin Arterial Blood Glucose Coronavirus (PCR) 05/17/21 05/17/21 05/17/21 06:20 11:06 16:36 WBC MCV MCH MCHC RDW Lymph % (Auto) [place] % (Auto) Eos % (Auto) Lymph # (Auto) [place] # (Auto) Eos # (Auto) Baso # (Auto) Seg Neutrophils % Seg Neuts % (Manual) Lymphocytes % (Manual) Seg Neutrophils # Seg Neutrophils # Man Lymphocytes # (Manual) D-Dimer ABG pH POC ABG pCO2 POC ABG pO2 ABG pO2 ABG HCO3 ABG O2 Saturation ABG Base Excess ABG Oxyhemoglobin ABG Sodium ABG Chloride ABG Glucose Oxyhemoglobin Carboxyhemoglobin Sodium Potassium Chloride Carbon Dioxide 33 H BUN Creatinine 0.2 L Glucose 101 H POC Glucose 209 H 180 H Hemoglobin A1c Magnesium Ferritin AST ALT Alkaline Phosphatase Lactate Dehydrogenase C-Reactive Protein Total Protein Albumin Arterial Blood Glucose Coronavirus (PCR) 05/17/21 05/18/21 05/18/21 21:06 12:00 15:06 WBC MCV MCH MCHC RDW Lymph % (Auto) [place] % (Auto) Eos % (Auto) Lymph # (Auto) [place] # (Auto) Eos # (Auto) Baso # (Auto) Seg Neutrophils % Seg Neuts % (Manual) Lymphocytes % (Manual) Seg Neutrophils # Seg Neutrophils # Man Lymphocytes # (Manual) D-Dimer 874.02 H ABG pH POC ABG pCO2 POC ABG pO2 ABG pO2 ABG HCO3 ABG O2 Saturation ABG Base Excess ABG Oxyhemoglobin ABG Sodium ABG Chloride ABG Glucose Oxyhemoglobin Carboxyhemoglobin Sodium Potassium Chloride Carbon Dioxide BUN Creatinine Glucose POC Glucose 256 H 139 H Hemoglobin A1c Magnesium Ferritin AST ALT Alkaline Phosphatase Lactate Dehydrogenase C-Reactive Protein Total Protein Albumin Arterial Blood Glucose Coronavirus (PCR) 05/18/21 05/18/21 05/18/21 15:06 15:06 16:08 WBC MCV MCH MCHC RDW Lymph % (Auto) [place] % (Auto) Eos % (Auto) Lymph # (Auto) [place] # (Auto) Eos # (Auto) Baso # (Auto) Seg Neutrophils % Seg Neuts % (Manual) Lymphocytes % (Manual) Seg Neutrophils # Seg Neutrophils # Man Lymphocytes # (Manual) D-Dimer ABG pH POC ABG pCO2 POC ABG pO2 ABG pO2 ABG HCO3 ABG O2 Saturation ABG Base Excess ABG Oxyhemoglobin ABG Sodium ABG Chloride ABG Glucose Oxyhemoglobin Carboxyhemoglobin Sodium Potassium Chloride Carbon Dioxide BUN Creatinine Glucose POC Glucose 178 H Hemoglobin A1c Magnesium Ferritin 289.6 H AST ALT Alkaline Phosphatase Lactate Dehydrogenase 605 H C-Reactive Protein Total Protein Albumin Arterial Blood Glucose Coronavirus (PCR) 05/18/21 05/19/21 05/19/21 21:22 11:57 15:26 WBC MCV MCH MCHC RDW Lymph % (Auto) [place] % (Auto) Eos % (Auto) Lymph # (Auto) [place] # (Auto) Eos # (Auto) Baso # (Auto) Seg Neutrophils % Seg Neuts % (Manual) Lymphocytes % (Manual) Seg Neutrophils # Seg Neutrophils # Man Lymphocytes # (Manual) D-Dimer ABG pH POC ABG pCO2 POC ABG pO2 ABG pO2 ABG HCO3 ABG O2 Saturation ABG Base Excess ABG Oxyhemoglobin ABG Sodium ABG Chloride ABG Glucose Oxyhemoglobin Carboxyhemoglobin Sodium Potassium Chloride Carbon Dioxide BUN Creatinine Glucose POC Glucose 241 H 201 H 209 H Hemoglobin A1c Magnesium Ferritin AST ALT Alkaline Phosphatase Lactate Dehydrogenase C-Reactive Protein Total Protein Albumin Arterial Blood Glucose Coronavirus (PCR) 05/19/21 05/20/21 05/20/21 20:59 07:38 08:01 WBC MCV MCH MCHC RDW 19.7 H Lymph % (Auto) 8.3 L [place] % (Auto) Eos % (Auto) Lymph # (Auto) 0.8 L [place] # (Auto) Eos # (Auto) Baso # (Auto) Seg Neutrophils % 88.6 H Seg Neuts % (Manual) Lymphocytes % (Manual) Seg Neutrophils # 8.4 H Seg Neutrophils # Man Lymphocytes # (Manual) D-Dimer ABG pH POC ABG pCO2 POC ABG pO2 ABG pO2 ABG HCO3 ABG O2 Saturation ABG Base Excess ABG Oxyhemoglobin ABG Sodium ABG Chloride ABG Glucose Oxyhemoglobin Carboxyhemoglobin Sodium Potassium Chloride Carbon Dioxide BUN Creatinine Glucose POC Glucose 226 H 130 H Hemoglobin A1c Magnesium Ferritin AST ALT Alkaline Phosphatase Lactate Dehydrogenase C-Reactive Protein Total Protein Albumin Arterial Blood Glucose Coronavirus (PCR) 05/20/21 05/20/21 05/20/21 08:01 11:00 16:43 WBC MCV MCH MCHC RDW Lymph % (Auto) [place] % (Auto) Eos % (Auto) Lymph # (Auto) [place] # (Auto) Eos # (Auto) Baso # (Auto) Seg Neutrophils % Seg Neuts % (Manual) Lymphocytes % (Manual) Seg Neutrophils # Seg Neutrophils # Man Lymphocytes # (Manual) D-Dimer ABG pH POC ABG pCO2 POC ABG pO2 ABG pO2 ABG HCO3 ABG O2 Saturation ABG Base Excess ABG Oxyhemoglobin ABG Sodium ABG Chloride ABG Glucose Oxyhemoglobin Carboxyhemoglobin Sodium Potassium Chloride Carbon Dioxide BUN 18 H Creatinine 0.2 L Glucose 132 H POC Glucose 237 H 240 H Hemoglobin A1c Magnesium Ferritin AST ALT Alkaline Phosphatase Lactate Dehydrogenase C-Reactive Protein Total Protein Albumin Arterial Blood Glucose Coronavirus (PCR) 05/20/21 05/21/21 05/21/21 21:21 07:35 11:32 WBC MCV MCH MCHC RDW Lymph % (Auto) [place] % (Auto) Eos % (Auto) Lymph # (Auto) [place] # (Auto) Eos # (Auto) Baso # (Auto) Seg Neutrophils % Seg Neuts % (Manual) Lymphocytes % (Manual) Seg Neutrophils # Seg Neutrophils # Man Lymphocytes # (Manual) D-Dimer ABG pH POC ABG pCO2 POC ABG pO2 ABG pO2 ABG HCO3 ABG O2 Saturation ABG Base Excess ABG Oxyhemoglobin ABG Sodium ABG Chloride ABG Glucose Oxyhemoglobin Carboxyhemoglobin Sodium Potassium Chloride Carbon Dioxide BUN Creatinine Glucose POC Glucose 241 H 162 H 171 H Hemoglobin A1c Magnesium Ferritin AST ALT Alkaline Phosphatase Lactate Dehydrogenase C-Reactive Protein Total Protein Albumin Arterial Blood Glucose Coronavirus (PCR) 05/21/21 05/21/21 05/22/21 16:22 20:43 05:14 WBC MCV MCH MCHC RDW Lymph % (Auto) [place] % (Auto) Eos % (Auto) Lymph # (Auto) [place] # (Auto) Eos # (Auto) Baso # (Auto) Seg Neutrophils % Seg Neuts % (Manual) Lymphocytes % (Manual) Seg Neutrophils # Seg Neutrophils # Man Lymphocytes # (Manual) D-Dimer ABG pH POC ABG pCO2 POC ABG pO2 ABG pO2 ABG HCO3 ABG O2 Saturation ABG Base Excess ABG Oxyhemoglobin ABG Sodium ABG Chloride ABG Glucose Oxyhemoglobin Carboxyhemoglobin Sodium Potassium Chloride Carbon Dioxide BUN Creatinine Glucose POC Glucose 244 H 299 H 140 H Hemoglobin A1c Magnesium Ferritin AST ALT Alkaline Phosphatase Lactate Dehydrogenase C-Reactive Protein Total Protein Albumin Arterial Blood Glucose Coronavirus (PCR) 05/22/21 05/22/21 05/22/21 08:45 11:54 16:15 WBC MCV MCH MCHC RDW Lymph % (Auto) [place] % (Auto) Eos % (Auto) Lymph # (Auto) [place] # (Auto) Eos # (Auto) Baso # (Auto) Seg Neutrophils % Seg Neuts % (Manual) Lymphocytes % (Manual) Seg Neutrophils # Seg Neutrophils # Man Lymphocytes # (Manual) D-Dimer ABG pH POC ABG pCO2 POC ABG pO2 ABG pO2 ABG HCO3 ABG O2 Saturation ABG Base Excess ABG Oxyhemoglobin ABG Sodium ABG Chloride ABG Glucose Oxyhemoglobin Carboxyhemoglobin Sodium Potassium Chloride Carbon Dioxide BUN Creatinine Glucose POC Glucose 133 H 265 H 221 H Hemoglobin A1c Magnesium Ferritin AST ALT Alkaline Phosphatase Lactate Dehydrogenase C-Reactive Protein Total Protein Albumin Arterial Blood Glucose Coronavirus (PCR) 05/22/21 05/23/21 05/23/21 21:43 08:20 09:50 WBC MCV MCH MCHC RDW Lymph % (Auto) [place] % (Auto) Eos % (Auto) Lymph # (Auto) [place] # (Auto) Eos # (Auto) Baso # (Auto) Seg Neutrophils % Seg Neuts % (Manual) Lymphocytes % (Manual) Seg Neutrophils # Seg Neutrophils # Man Lymphocytes # (Manual) D-Dimer 910.38 H ABG pH POC ABG pCO2 POC ABG pO2 ABG pO2 ABG HCO3 ABG O2 Saturation ABG Base Excess ABG Oxyhemoglobin ABG Sodium ABG Chloride ABG Glucose Oxyhemoglobin Carboxyhemoglobin Sodium Potassium Chloride Carbon Dioxide BUN Creatinine Glucose POC Glucose 262 H 140 H Hemoglobin A1c Magnesium Ferritin AST ALT Alkaline Phosphatase Lactate Dehydrogenase C-Reactive Protein Total Protein Albumin Arterial Blood Glucose Coronavirus (PCR) 05/23/21 05/23/21 05/23/21 09:50 09:50 10:52 WBC MCV MCH MCHC RDW Lymph % (Auto) [place] % (Auto) Eos % (Auto) Lymph # (Auto) [place] # (Auto) Eos # (Auto) Baso # (Auto) Seg Neutrophils % Seg Neuts % (Manual) Lymphocytes % (Manual) Seg Neutrophils # Seg Neutrophils # Man Lymphocytes # (Manual) D-Dimer ABG pH POC ABG pCO2 POC ABG pO2 ABG pO2 ABG HCO3 ABG O2 Saturation ABG Base Excess ABG Oxyhemoglobin ABG Sodium ABG Chloride ABG Glucose Oxyhemoglobin Carboxyhemoglobin Sodium Potassium Chloride Carbon Dioxide BUN Creatinine Glucose POC Glucose 241 H Hemoglobin A1c Magnesium Ferritin 244.9 H AST ALT Alkaline Phosphatase Lactate Dehydrogenase 584 H C-Reactive Protein Total Protein Albumin Arterial Blood Glucose Coronavirus (PCR) 05/23/21 05/23/21 05/24/21 17:24 21:52 07:44 WBC MCV MCH MCHC RDW Lymph % (Auto) [place] % (Auto) Eos % (Auto) Lymph # (Auto) [place] # (Auto) Eos # (Auto) Baso # (Auto) Seg Neutrophils % Seg Neuts % (Manual) Lymphocytes % (Manual) Seg Neutrophils # Seg Neutrophils # Man Lymphocytes # (Manual) D-Dimer ABG pH POC ABG pCO2 POC ABG pO2 ABG pO2 ABG HCO3 ABG O2 Saturation ABG Base Excess ABG Oxyhemoglobin ABG Sodium ABG Chloride ABG Glucose Oxyhemoglobin Carboxyhemoglobin Sodium Potassium Chloride Carbon Dioxide BUN Creatinine Glucose POC Glucose 197 H 289 H 161 H Hemoglobin A1c Magnesium Ferritin AST ALT Alkaline Phosphatase Lactate Dehydrogenase C-Reactive Protein Total Protein Albumin Arterial Blood Glucose Coronavirus (PCR) 05/24/21 05/24/21 05/24/21 11:17 17:51 21:26 WBC MCV MCH MCHC RDW Lymph % (Auto) [place] % (Auto) Eos % (Auto) Lymph # (Auto) [place] # (Auto) Eos # (Auto) Baso # (Auto) Seg Neutrophils % Seg Neuts % (Manual) Lymphocytes % (Manual) Seg Neutrophils # Seg Neutrophils # Man Lymphocytes # (Manual) D-Dimer ABG pH POC ABG pCO2 POC ABG pO2 ABG pO2 ABG HCO3 ABG O2 Saturation ABG Base Excess ABG Oxyhemoglobin ABG Sodium ABG Chloride ABG Glucose Oxyhemoglobin Carboxyhemoglobin Sodium Potassium Chloride Carbon Dioxide BUN Creatinine Glucose POC Glucose 308 H 175 H 198 H Hemoglobin A1c Magnesium Ferritin AST ALT Alkaline Phosphatase Lactate Dehydrogenase C-Reactive Protein Total Protein Albumin Arterial Blood Glucose Coronavirus (PCR) 05/25/21 05/25/21 05/25/21 08:14 11:13 17:13 WBC MCV MCH MCHC RDW Lymph % (Auto) [place] % (Auto) Eos % (Auto) Lymph # (Auto) [place] # (Auto) Eos # (Auto) Baso # (Auto) Seg Neutrophils % Seg Neuts % (Manual) Lymphocytes % (Manual) Seg Neutrophils # Seg Neutrophils # Man Lymphocytes # (Manual) D-Dimer ABG pH POC ABG pCO2 POC ABG pO2 ABG pO2 ABG HCO3 ABG O2 Saturation ABG Base Excess ABG Oxyhemoglobin ABG Sodium ABG Chloride ABG Glucose Oxyhemoglobin Carboxyhemoglobin Sodium Potassium Chloride Carbon Dioxide BUN Creatinine Glucose POC Glucose 203 H 339 H 235 H Hemoglobin A1c Magnesium Ferritin AST ALT Alkaline Phosphatase Lactate Dehydrogenase C-Reactive Protein Total Protein Albumin Arterial Blood Glucose Coronavirus (PCR) 05/25/21 05/26/21 05/26/21 21:03 07:33 11:19 WBC MCV MCH MCHC RDW Lymph % (Auto) [place] % (Auto) Eos % (Auto) Lymph # (Auto) [place] # (Auto) Eos # (Auto) Baso # (Auto) Seg Neutrophils % Seg Neuts % (Manual) Lymphocytes % (Manual) Seg Neutrophils # Seg Neutrophils # Man Lymphocytes # (Manual) D-Dimer ABG pH POC ABG pCO2 POC ABG pO2 ABG pO2 ABG HCO3 ABG O2 Saturation ABG Base Excess ABG Oxyhemoglobin ABG Sodium ABG Chloride ABG Glucose Oxyhemoglobin Carboxyhemoglobin Sodium Potassium Chloride Carbon Dioxide BUN Creatinine Glucose POC Glucose 263 H 156 H 288 H Hemoglobin A1c Magnesium Ferritin AST ALT Alkaline Phosphatase Lactate Dehydrogenase C-Reactive Protein Total Protein Albumin Arterial Blood Glucose Coronavirus (PCR) 05/26/21 05/26/21 05/27/21 16:26 20:55 07:38 WBC MCV MCH MCHC RDW Lymph % (Auto) [place] % (Auto) Eos % (Auto) Lymph # (Auto) [place] # (Auto) Eos # (Auto) Baso # (Auto) Seg Neutrophils % Seg Neuts % (Manual) Lymphocytes % (Manual) Seg Neutrophils # Seg Neutrophils # Man Lymphocytes # (Manual) D-Dimer ABG pH POC ABG pCO2 POC ABG pO2 ABG pO2 ABG HCO3 ABG O2 Saturation ABG Base Excess ABG Oxyhemoglobin ABG Sodium ABG Chloride ABG Glucose Oxyhemoglobin Carboxyhemoglobin Sodium Potassium Chloride Carbon Dioxide BUN Creatinine Glucose POC Glucose 286 H 293 H 115 H Hemoglobin A1c Magnesium Ferritin AST ALT Alkaline Phosphatase Lactate Dehydrogenase C-Reactive Protein Total Protein Albumin Arterial Blood Glucose Coronavirus (PCR) 05/27/21 05/27/21 05/27/21 11:46 15:58 21:02 WBC MCV MCH MCHC RDW Lymph % (Auto) [place] % (Auto) Eos % (Auto) Lymph # (Auto) [place] # (Auto) Eos # (Auto) Baso # (Auto) Seg Neutrophils % Seg Neuts % (Manual) Lymphocytes % (Manual) Seg Neutrophils # Seg Neutrophils # Man Lymphocytes # (Manual) D-Dimer ABG pH POC ABG pCO2 POC ABG pO2 ABG pO2 ABG HCO3 ABG O2 Saturation ABG Base Excess ABG Oxyhemoglobin ABG Sodium ABG Chloride ABG Glucose Oxyhemoglobin Carboxyhemoglobin Sodium Potassium Chloride Carbon Dioxide BUN Creatinine Glucose POC Glucose 260 H 318 H 246 H Hemoglobin A1c Magnesium Ferritin AST ALT Alkaline Phosphatase Lactate Dehydrogenase C-Reactive Protein Total Protein Albumin Arterial Blood Glucose Coronavirus (PCR) 05/28/21 05/28/21 05/28/21 07:34 11:31 16:36 WBC MCV MCH MCHC RDW Lymph % (Auto) [place] % (Auto) Eos % (Auto) Lymph # (Auto) [place] # (Auto) Eos # (Auto) Baso # (Auto) Seg Neutrophils % Seg Neuts % (Manual) Lymphocytes % (Manual) Seg Neutrophils # Seg Neutrophils # Man Lymphocytes # (Manual) D-Dimer ABG pH POC ABG pCO2 POC ABG pO2 ABG pO2 ABG HCO3 ABG O2 Saturation ABG Base Excess ABG Oxyhemoglobin ABG Sodium ABG Chloride ABG Glucose Oxyhemoglobin Carboxyhemoglobin Sodium Potassium Chloride Carbon Dioxide BUN Creatinine Glucose POC Glucose 185 H 297 H 183 H Hemoglobin A1c Magnesium Ferritin AST ALT Alkaline Phosphatase Lactate Dehydrogenase C-Reactive Protein Total Protein Albumin Arterial Blood Glucose Coronavirus (PCR) 05/28/21 05/29/21 05/29/21 21:19 07:34 11:19 WBC MCV MCH MCHC RDW Lymph % (Auto) [place] % (Auto) Eos % (Auto) Lymph # (Auto) [place] # (Auto) Eos # (Auto) Baso # (Auto) Seg Neutrophils % Seg Neuts % (Manual) Lymphocytes % (Manual) Seg Neutrophils # Seg Neutrophils # Man Lymphocytes # (Manual) D-Dimer ABG pH POC ABG pCO2 POC ABG pO2 ABG pO2 ABG HCO3 ABG O2 Saturation ABG Base Excess ABG Oxyhemoglobin ABG Sodium ABG Chloride ABG Glucose Oxyhemoglobin Carboxyhemoglobin Sodium Potassium Chloride Carbon Dioxide BUN Creatinine Glucose POC Glucose 274 H 139 H 293 H Hemoglobin A1c Magnesium Ferritin AST ALT Alkaline Phosphatase Lactate Dehydrogenase C-Reactive Protein Total Protein Albumin Arterial Blood Glucose Coronavirus (PCR) 05/29/21 05/29/21 05/30/21 16:36 22:44 05:55 WBC MCV MCH MCHC RDW 21.3 H Lymph % (Auto) 8.0 L [place] % (Auto) Eos % (Auto) Lymph # (Auto) 0.6 L [place] # (Auto) Eos # (Auto) Baso # (Auto) Seg Neutrophils % 88.6 H Seg Neuts % (Manual) Lymphocytes % (Manual) Seg Neutrophils # Seg Neutrophils # Man Lymphocytes # (Manual) D-Dimer ABG pH POC ABG pCO2 POC ABG pO2 ABG pO2 ABG HCO3 ABG O2 Saturation ABG Base Excess ABG Oxyhemoglobin ABG Sodium ABG Chloride ABG Glucose Oxyhemoglobin Carboxyhemoglobin Sodium Potassium Chloride Carbon Dioxide BUN Creatinine Glucose POC Glucose 299 H 160 H Hemoglobin A1c Magnesium Ferritin AST ALT Alkaline Phosphatase Lactate Dehydrogenase C-Reactive Protein Total Protein Albumin Arterial Blood Glucose Coronavirus (PCR) 05/30/21 05/30/21 05/30/21 05:55 08:04 11:13 WBC MCV MCH MCHC RDW Lymph % (Auto) [place] % (Auto) Eos % (Auto) Lymph # (Auto) [place] # (Auto) Eos # (Auto) Baso # (Auto) Seg Neutrophils % Seg Neuts % (Manual) Lymphocytes % (Manual) Seg Neutrophils # Seg Neutrophils # Man Lymphocytes # (Manual) D-Dimer ABG pH POC ABG pCO2 POC ABG pO2 ABG pO2 ABG HCO3 ABG O2 Saturation ABG Base Excess ABG Oxyhemoglobin ABG Sodium ABG Chloride ABG Glucose Oxyhemoglobin Carboxyhemoglobin Sodium Potassium Chloride Carbon Dioxide BUN 19 H Creatinine 0.2 L Glucose 209 H POC Glucose 157 H 275 H Hemoglobin A1c Magnesium Ferritin AST ALT Alkaline Phosphatase Lactate Dehydrogenase C-Reactive Protein Total Protein Albumin Arterial Blood Glucose Coronavirus (PCR) 05/30/21 05/30/21 05/31/21 17:08 22:12 07:36 WBC MCV MCH MCHC RDW Lymph % (Auto) [place] % (Auto) Eos % (Auto) Lymph # (Auto) [place] # (Auto) Eos # (Auto) Baso # (Auto) Seg Neutrophils % Seg Neuts % (Manual) Lymphocytes % (Manual) Seg Neutrophils # Seg Neutrophils # Man Lymphocytes # (Manual) D-Dimer ABG pH POC ABG pCO2 POC ABG pO2 ABG pO2 ABG HCO3 ABG O2 Saturation ABG Base Excess ABG Oxyhemoglobin ABG Sodium ABG Chloride ABG Glucose Oxyhemoglobin Carboxyhemoglobin Sodium Potassium Chloride Carbon Dioxide BUN Creatinine Glucose POC Glucose 154 H 275 H 138 H Hemoglobin A1c Magnesium Ferritin AST ALT Alkaline Phosphatase Lactate Dehydrogenase C-Reactive Protein Total Protein Albumin Arterial Blood Glucose Coronavirus (PCR) 05/31/21 05/31/21 05/31/21 11:17 16:55 21:25 WBC MCV MCH MCHC RDW Lymph % (Auto) [place] % (Auto) Eos % (Auto) Lymph # (Auto) [place] # (Auto) Eos # (Auto) Baso # (Auto) Seg Neutrophils % Seg Neuts % (Manual) Lymphocytes % (Manual) Seg Neutrophils # Seg Neutrophils # Man Lymphocytes # (Manual) D-Dimer ABG pH POC ABG pCO2 POC ABG pO2 ABG pO2 ABG HCO3 ABG O2 Saturation ABG Base Excess ABG Oxyhemoglobin ABG Sodium ABG Chloride ABG Glucose Oxyhemoglobin Carboxyhemoglobin Sodium Potassium Chloride Carbon Dioxide BUN Creatinine Glucose POC Glucose 258 H 215 H 318 H Hemoglobin A1c Magnesium Ferritin AST ALT Alkaline Phosphatase Lactate Dehydrogenase C-Reactive Protein Total Protein Albumin Arterial Blood Glucose Coronavirus (PCR) 06/01/21 06/01/21 06/01/21 07:23 11:38 16:52 WBC MCV MCH MCHC RDW Lymph % (Auto) [place] % (Auto) Eos % (Auto) Lymph # (Auto) [place] # (Auto) Eos # (Auto) Baso # (Auto) Seg Neutrophils % Seg Neuts % (Manual) Lymphocytes % (Manual) Seg Neutrophils # Seg Neutrophils # Man Lymphocytes # (Manual) D-Dimer ABG pH POC ABG pCO2 POC ABG pO2 ABG pO2 ABG HCO3 ABG O2 Saturation ABG Base Excess ABG Oxyhemoglobin ABG Sodium ABG Chloride ABG Glucose Oxyhemoglobin Carboxyhemoglobin Sodium Potassium Chloride Carbon Dioxide BUN Creatinine Glucose POC Glucose 157 H 259 H 150 H Hemoglobin A1c Magnesium Ferritin AST ALT Alkaline Phosphatase Lactate Dehydrogenase C-Reactive Protein Total Protein Albumin Arterial Blood Glucose Coronavirus (PCR) 06/01/21 06/02/21 06/02/21 23:16 05:34 05:34 WBC MCV MCH MCHC RDW 21.3 H Lymph % (Auto) 9.6 L [place] % (Auto) Eos % (Auto) Lymph # (Auto) 0.6 L [place] # (Auto) Eos # (Auto) Baso # (Auto) Seg Neutrophils % 86.2 H Seg Neuts % (Manual) Lymphocytes % (Manual) Seg Neutrophils # Seg Neutrophils # Man Lymphocytes # (Manual) D-Dimer ABG pH POC ABG pCO2 POC ABG pO2 ABG pO2 ABG HCO3 ABG O2 Saturation ABG Base Excess ABG Oxyhemoglobin ABG Sodium ABG Chloride ABG Glucose Oxyhemoglobin Carboxyhemoglobin Sodium 136 L Potassium Chloride Carbon Dioxide BUN Creatinine 0.2 L Glucose 186 H POC Glucose 247 H Hemoglobin A1c Magnesium Ferritin AST ALT 69 H Alkaline Phosphatase Lactate Dehydrogenase C-Reactive Protein Total Protein 6.1 L Albumin 3.2 L Arterial Blood Glucose Coronavirus (PCR) 06/02/21 06/02/21 06/02/21 11:25 18:23 21:32 WBC MCV MCH MCHC RDW Lymph % (Auto) [place] % (Auto) Eos % (Auto) Lymph # (Auto) [place] # (Auto) Eos # (Auto) Baso # (Auto) Seg Neutrophils % Seg Neuts % (Manual) Lymphocytes % (Manual) Seg Neutrophils # Seg Neutrophils # Man Lymphocytes # (Manual) D-Dimer ABG pH POC ABG pCO2 POC ABG pO2 ABG pO2 ABG HCO3 ABG O2 Saturation ABG Base Excess ABG Oxyhemoglobin ABG Sodium ABG Chloride ABG Glucose Oxyhemoglobin Carboxyhemoglobin Sodium Potassium Chloride Carbon Dioxide BUN Creatinine Glucose POC Glucose 157 H 299 H 246 H Hemoglobin A1c Magnesium Ferritin AST ALT Alkaline Phosphatase Lactate Dehydrogenase C-Reactive Protein Total Protein Albumin Arterial Blood Glucose Coronavirus (PCR) 06/03/21 06/03/21 06/03/21 08:12 12:21 17:31 WBC MCV MCH MCHC RDW Lymph % (Auto) [place] % (Auto) Eos % (Auto) Lymph # (Auto) [place] # (Auto) Eos # (Auto) Baso # (Auto) Seg Neutrophils % Seg Neuts % (Manual) Lymphocytes % (Manual) Seg Neutrophils # Seg Neutrophils # Man Lymphocytes # (Manual) D-Dimer ABG pH POC ABG pCO2 POC ABG pO2 ABG pO2 ABG HCO3 ABG O2 Saturation ABG Base Excess ABG Oxyhemoglobin ABG Sodium ABG Chloride ABG Glucose Oxyhemoglobin Carboxyhemoglobin Sodium Potassium Chloride Carbon Dioxide BUN Creatinine Glucose POC Glucose 153 H 302 H 252 H Hemoglobin A1c Magnesium Ferritin AST ALT Alkaline Phosphatase Lactate Dehydrogenase C-Reactive Protein Total Protein Albumin Arterial Blood Glucose Coronavirus (PCR) 06/03/21 06/04/21 06/04/21 22:08 11:12 16:01 WBC MCV MCH MCHC RDW Lymph % (Auto) [place] % (Auto) Eos % (Auto) Lymph # (Auto) [place] # (Auto) Eos # (Auto) Baso # (Auto) Seg Neutrophils % Seg Neuts % (Manual) Lymphocytes % (Manual) Seg Neutrophils # Seg Neutrophils # Man Lymphocytes # (Manual) D-Dimer ABG pH POC ABG pCO2 POC ABG pO2 ABG pO2 ABG HCO3 ABG O2 Saturation ABG Base Excess ABG Oxyhemoglobin ABG Sodium ABG Chloride ABG Glucose Oxyhemoglobin Carboxyhemoglobin Sodium Potassium Chloride Carbon Dioxide BUN Creatinine Glucose POC Glucose 224 H 259 H 238 H Hemoglobin A1c Magnesium Ferritin AST ALT Alkaline Phosphatase Lactate Dehydrogenase C-Reactive Protein Total Protein Albumin Arterial Blood Glucose Coronavirus (PCR) 06/04/21 06/05/21 06/05/21 21:26 05:26 05:26 WBC MCV MCH MCHC RDW Lymph % (Auto) [place] % (Auto) Eos % (Auto) Lymph # (Auto) [place] # (Auto) Eos # (Auto) Baso # (Auto) Seg Neutrophils % Seg Neuts % (Manual) Lymphocytes % (Manual) Seg Neutrophils # Seg Neutrophils # Man Lymphocytes # (Manual) D-Dimer 488.49 H ABG pH POC ABG pCO2 POC ABG pO2 ABG pO2 ABG HCO3 ABG O2 Saturation ABG Base Excess ABG Oxyhemoglobin ABG Sodium ABG Chloride ABG Glucose Oxyhemoglobin Carboxyhemoglobin Sodium Potassium Chloride Carbon Dioxide BUN Creatinine 0.2 L Glucose 198 H POC Glucose 257 H Hemoglobin A1c Magnesium Ferritin AST ALT Alkaline Phosphatase Lactate Dehydrogenase 475 H C-Reactive Protein Total Protein Albumin Arterial Blood Glucose Coronavirus (PCR) 06/05/21 06/05/21 06/05/21 07:20 08:30 11:00 WBC MCV MCH MCHC RDW Lymph % (Auto) [place] % (Auto) Eos % (Auto) Lymph # (Auto) [place] # (Auto) Eos # (Auto) Baso # (Auto) Seg Neutrophils % Seg Neuts % (Manual) Lymphocytes % (Manual) Seg Neutrophils # Seg Neutrophils # Man Lymphocytes # (Manual) D-Dimer ABG pH POC ABG pCO2 POC ABG pO2 ABG pO2 ABG HCO3 ABG O2 Saturation ABG Base Excess ABG Oxyhemoglobin ABG Sodium ABG Chloride ABG Glucose Oxyhemoglobin Carboxyhemoglobin Sodium Potassium Chloride Carbon Dioxide BUN Creatinine Glucose POC Glucose 146 H 246 H Hemoglobin A1c Magnesium Ferritin AST ALT Alkaline Phosphatase Lactate Dehydrogenase C-Reactive Protein Total Protein Albumin Arterial Blood Glucose Coronavirus (PCR) Positive A 06/05/21 06/05/21 06/06/21 16:50 22:30 07:57 WBC MCV MCH MCHC RDW Lymph % (Auto) [place] % (Auto) Eos % (Auto) Lymph # (Auto) [place] # (Auto) Eos # (Auto) Baso # (Auto) Seg Neutrophils % Seg Neuts % (Manual) Lymphocytes % (Manual) Seg Neutrophils # Seg Neutrophils # Man Lymphocytes # (Manual) D-Dimer ABG pH POC ABG pCO2 POC ABG pO2 ABG pO2 ABG HCO3 ABG O2 Saturation ABG Base Excess ABG Oxyhemoglobin ABG Sodium ABG Chloride ABG Glucose Oxyhemoglobin Carboxyhemoglobin Sodium Potassium Chloride Carbon Dioxide BUN Creatinine Glucose POC Glucose 240 H 174 H 120 H Hemoglobin A1c Magnesium Ferritin AST ALT Alkaline Phosphatase Lactate Dehydrogenase C-Reactive Protein Total Protein Albumin Arterial Blood Glucose Coronavirus (PCR) 06/06/21 06/06/21 06/06/21 11:14 16:50 21:11 WBC MCV MCH MCHC RDW Lymph % (Auto) [place] % (Auto) Eos % (Auto) Lymph # (Auto) [place] # (Auto) Eos # (Auto) Baso # (Auto) Seg Neutrophils % Seg Neuts % (Manual) Lymphocytes % (Manual) Seg Neutrophils # Seg Neutrophils # Man Lymphocytes # (Manual) D-Dimer ABG pH POC ABG pCO2 POC ABG pO2 ABG pO2 ABG HCO3 ABG O2 Saturation ABG Base Excess ABG Oxyhemoglobin ABG Sodium ABG Chloride ABG Glucose Oxyhemoglobin Carboxyhemoglobin Sodium Potassium Chloride Carbon Dioxide BUN Creatinine Glucose POC Glucose 267 H 218 H 124 H Hemoglobin A1c Magnesium Ferritin AST ALT Alkaline Phosphatase Lactate Dehydrogenase C-Reactive Protein Total Protein Albumin Arterial Blood Glucose Coronavirus (PCR) 06/07/21 06/07/21 06/08/21 11:58 15:59 07:59 WBC MCV MCH MCHC RDW Lymph % (Auto) [place] % (Auto) Eos % (Auto) Lymph # (Auto) [place] # (Auto) Eos # (Auto) Baso # (Auto) Seg Neutrophils % Seg Neuts % (Manual) Lymphocytes % (Manual) Seg Neutrophils # Seg Neutrophils # Man Lymphocytes # (Manual) D-Dimer ABG pH POC ABG pCO2 POC ABG pO2 ABG pO2 ABG HCO3 ABG O2 Saturation ABG Base Excess ABG Oxyhemoglobin ABG Sodium ABG Chloride ABG Glucose Oxyhemoglobin Carboxyhemoglobin Sodium Potassium Chloride Carbon Dioxide BUN Creatinine Glucose POC Glucose 219 H 208 H 192 H Hemoglobin A1c Magnesium Ferritin AST ALT Alkaline Phosphatase Lactate Dehydrogenase C-Reactive Protein Total Protein Albumin Arterial Blood Glucose Coronavirus (PCR) 06/08/21 06/08/21 06/09/21 11:26 23:28 07:33 WBC MCV MCH MCHC RDW Lymph % (Auto) [place] % (Auto) Eos % (Auto) Lymph # (Auto) [place] # (Auto) Eos # (Auto) Baso # (Auto) Seg Neutrophils % Seg Neuts % (Manual) Lymphocytes % (Manual) Seg Neutrophils # Seg Neutrophils # Man Lymphocytes # (Manual) D-Dimer ABG pH POC ABG pCO2 POC ABG pO2 ABG pO2 ABG HCO3 ABG O2 Saturation ABG Base Excess ABG Oxyhemoglobin ABG Sodium ABG Chloride ABG Glucose Oxyhemoglobin Carboxyhemoglobin Sodium Potassium Chloride Carbon Dioxide BUN Creatinine Glucose POC Glucose 307 H 138 H 145 H Hemoglobin A1c Magnesium Ferritin AST ALT Alkaline Phosphatase Lactate Dehydrogenase C-Reactive Protein Total Protein Albumin Arterial Blood Glucose Coronavirus (PCR) 06/09/21 06/09/21 06/09/21 11:01 15:47 21:43 WBC MCV MCH MCHC RDW Lymph % (Auto) [place] % (Auto) Eos % (Auto) Lymph # (Auto) [place] # (Auto) Eos # (Auto) Baso # (Auto) Seg Neutrophils % Seg Neuts % (Manual) Lymphocytes % (Manual) Seg Neutrophils # Seg Neutrophils # Man Lymphocytes # (Manual) D-Dimer ABG pH POC ABG pCO2 POC ABG pO2 ABG pO2 ABG HCO3 ABG O2 Saturation ABG Base Excess ABG Oxyhemoglobin ABG Sodium ABG Chloride ABG Glucose Oxyhemoglobin Carboxyhemoglobin Sodium Potassium Chloride Carbon Dioxide BUN Creatinine Glucose POC Glucose 266 H 305 H 223 H Hemoglobin A1c Magnesium Ferritin AST ALT Alkaline Phosphatase Lactate Dehydrogenase C-Reactive Protein Total Protein Albumin Arterial Blood Glucose Coronavirus (PCR) 06/10/21 06/10/21 06/10/21 08:27 12:10 17:45 WBC MCV MCH MCHC RDW Lymph % (Auto) [place] % (Auto) Eos % (Auto) Lymph # (Auto) [place] # (Auto) Eos # (Auto) Baso # (Auto) Seg Neutrophils % Seg Neuts % (Manual) Lymphocytes % (Manual) Seg Neutrophils # Seg Neutrophils # Man Lymphocytes # (Manual) D-Dimer ABG pH POC ABG pCO2 POC ABG pO2 ABG pO2 ABG HCO3 ABG O2 Saturation ABG Base Excess ABG Oxyhemoglobin ABG Sodium ABG Chloride ABG Glucose Oxyhemoglobin Carboxyhemoglobin Sodium Potassium Chloride Carbon Dioxide BUN Creatinine Glucose POC Glucose 174 H 306 H 210 H Hemoglobin A1c Magnesium Ferritin AST ALT Alkaline Phosphatase Lactate Dehydrogenase C-Reactive Protein Total Protein Albumin Arterial Blood Glucose Coronavirus (PCR) 06/10/21 06/11/21 06/11/21 21:45 09:38 09:38 WBC MCV MCH MCHC RDW 20.9 H Lymph % (Auto) [place] % (Auto) Eos % (Auto) Lymph # (Auto) [place] # (Auto) Eos # (Auto) Baso # (Auto) Seg Neutrophils % Seg Neuts % (Manual) Lymphocytes % (Manual) Seg Neutrophils # Seg Neutrophils # Man Lymphocytes # (Manual) D-Dimer ABG pH POC ABG pCO2 POC ABG pO2 ABG pO2 ABG HCO3 ABG O2 Saturation ABG Base Excess ABG Oxyhemoglobin ABG Sodium ABG Chloride ABG Glucose Oxyhemoglobin Carboxyhemoglobin Sodium 135 L Potassium Chloride 90.8 L Carbon Dioxide 36 H BUN 29 H Creatinine 0.2 L Glucose 258 H POC Glucose 262 H Hemoglobin A1c Magnesium Ferritin AST ALT Alkaline Phosphatase Lactate Dehydrogenase C-Reactive Protein Total Protein Albumin Arterial Blood Glucose Coronavirus (PCR) 06/11/21 06/11/21 06/11/21 11:20 15:49 22:57 WBC MCV MCH MCHC RDW Lymph % (Auto) [place] % (Auto) Eos % (Auto) Lymph # (Auto) [place] # (Auto) Eos # (Auto) Baso # (Auto) Seg Neutrophils % Seg Neuts % (Manual) Lymphocytes % (Manual) Seg Neutrophils # Seg Neutrophils # Man Lymphocytes # (Manual) D-Dimer ABG pH POC ABG pCO2 POC ABG pO2 ABG pO2 ABG HCO3 ABG O2 Saturation ABG Base Excess ABG Oxyhemoglobin ABG Sodium ABG Chloride ABG Glucose Oxyhemoglobin Carboxyhemoglobin Sodium Potassium Chloride Carbon Dioxide BUN Creatinine Glucose POC Glucose 269 H 206 H 211 H Hemoglobin A1c Magnesium Ferritin AST ALT Alkaline Phosphatase Lactate Dehydrogenase C-Reactive Protein Total Protein Albumin Arterial Blood Glucose Coronavirus (PCR) 06/12/21 06/12/21 06/12/21 08:07 11:24 18:08 WBC MCV MCH MCHC RDW Lymph % (Auto) [place] % (Auto) Eos % (Auto) Lymph # (Auto) [place] # (Auto) Eos # (Auto) Baso # (Auto) Seg Neutrophils % Seg Neuts % (Manual) Lymphocytes % (Manual) Seg Neutrophils # Seg Neutrophils # Man Lymphocytes # (Manual) D-Dimer ABG pH POC ABG pCO2 POC ABG pO2 ABG pO2 ABG HCO3 ABG O2 Saturation ABG Base Excess ABG Oxyhemoglobin ABG Sodium ABG Chloride ABG Glucose Oxyhemoglobin Carboxyhemoglobin Sodium Potassium Chloride Carbon Dioxide BUN Creatinine Glucose POC Glucose 149 H 270 H 166 H Hemoglobin A1c Magnesium Ferritin AST ALT Alkaline Phosphatase Lactate Dehydrogenase C-Reactive Protein Total Protein Albumin Arterial Blood Glucose Coronavirus (PCR) 06/12/21 06/13/21 06/13/21 20:22 07:50 11:18 WBC MCV MCH MCHC RDW Lymph % (Auto) [place] % (Auto) Eos % (Auto) Lymph # (Auto) [place] # (Auto) Eos # (Auto) Baso # (Auto) Seg Neutrophils % Seg Neuts % (Manual) Lymphocytes % (Manual) Seg Neutrophils # Seg Neutrophils # Man Lymphocytes # (Manual) D-Dimer ABG pH POC ABG pCO2 POC ABG pO2 ABG pO2 ABG HCO3 ABG O2 Saturation ABG Base Excess ABG Oxyhemoglobin ABG Sodium ABG Chloride ABG Glucose Oxyhemoglobin Carboxyhemoglobin Sodium Potassium Chloride Carbon Dioxide BUN Creatinine Glucose POC Glucose 155 H 163 H 293 H Hemoglobin A1c Magnesium Ferritin AST ALT Alkaline Phosphatase Lactate Dehydrogenase C-Reactive Protein Total Protein Albumin Arterial Blood Glucose Coronavirus (PCR) 06/13/21 06/13/21 06/14/21 16:41 21:00 07:41 WBC MCV MCH MCHC RDW Lymph % (Auto) [place] % (Auto) Eos % (Auto) Lymph # (Auto) [place] # (Auto) Eos # (Auto) Baso # (Auto) Seg Neutrophils % Seg Neuts % (Manual) Lymphocytes % (Manual) Seg Neutrophils # Seg Neutrophils # Man Lymphocytes # (Manual) D-Dimer ABG pH POC ABG pCO2 POC ABG pO2 ABG pO2 ABG HCO3 ABG O2 Saturation ABG Base Excess ABG Oxyhemoglobin ABG Sodium ABG Chloride ABG Glucose Oxyhemoglobin Carboxyhemoglobin Sodium Potassium Chloride Carbon Dioxide BUN Creatinine Glucose POC Glucose 232 H 183 H 52 L Hemoglobin A1c Magnesium Ferritin AST ALT Alkaline Phosphatase Lactate Dehydrogenase C-Reactive Protein Total Protein Albumin Arterial Blood Glucose Coronavirus (PCR) 06/14/21 06/14/21 06/14/21 11:44 17:44 21:44 WBC MCV MCH MCHC RDW Lymph % (Auto) [place] % (Auto) Eos % (Auto) Lymph # (Auto) [place] # (Auto) Eos # (Auto) Baso # (Auto) Seg Neutrophils % Seg Neuts % (Manual) Lymphocytes % (Manual) Seg Neutrophils # Seg Neutrophils # Man Lymphocytes # (Manual) D-Dimer ABG pH POC ABG pCO2 POC ABG pO2 ABG pO2 ABG HCO3 ABG O2 Saturation ABG Base Excess ABG Oxyhemoglobin ABG Sodium ABG Chloride ABG Glucose Oxyhemoglobin Carboxyhemoglobin Sodium Potassium Chloride Carbon Dioxide BUN Creatinine Glucose POC Glucose 205 H 293 H 288 H Hemoglobin A1c Magnesium Ferritin AST ALT Alkaline Phosphatase Lactate Dehydrogenase C-Reactive Protein Total Protein Albumin Arterial Blood Glucose Coronavirus (PCR) 06/15/21 06/15/21 06/15/21 08:00 08:00 11:40 WBC MCV MCH 33 H MCHC 35 H RDW 20.3 H Lymph % (Auto) [place] % (Auto) Eos % (Auto) Lymph # (Auto) [place] # (Auto) Eos # (Auto) Baso # (Auto) Seg Neutrophils % Seg Neuts % (Manual) Lymphocytes % (Manual) Seg Neutrophils # Seg Neutrophils # Man Lymphocytes # (Manual) D-Dimer ABG pH POC ABG pCO2 POC ABG pO2 ABG pO2 ABG HCO3 ABG O2 Saturation ABG Base Excess ABG Oxyhemoglobin ABG Sodium ABG Chloride ABG Glucose Oxyhemoglobin Carboxyhemoglobin Sodium Potassium 3.2 L Chloride 95.3 L Carbon Dioxide 32 H BUN 23 H Creatinine 0.2 L Glucose 103 H POC Glucose 204 H Hemoglobin A1c Magnesium Ferritin AST ALT Alkaline Phosphatase Lactate Dehydrogenase C-Reactive Protein Total Protein Albumin Arterial Blood Glucose Coronavirus (PCR) 06/15/21 06/15/21 06/16/21 16:17 22:00 11:43 WBC MCV MCH MCHC RDW Lymph % (Auto) [place] % (Auto) Eos % (Auto) Lymph # (Auto) [place] # (Auto) Eos # (Auto) Baso # (Auto) Seg Neutrophils % Seg Neuts % (Manual) Lymphocytes % (Manual) Seg Neutrophils # Seg Neutrophils # Man Lymphocytes # (Manual) D-Dimer ABG pH POC ABG pCO2 POC ABG pO2 ABG pO2 ABG HCO3 ABG O2 Saturation ABG Base Excess ABG Oxyhemoglobin ABG Sodium ABG Chloride ABG Glucose Oxyhemoglobin Carboxyhemoglobin Sodium Potassium Chloride Carbon Dioxide BUN Creatinine Glucose POC Glucose 295 H 233 H 201 H Hemoglobin A1c Magnesium Ferritin AST ALT Alkaline Phosphatase Lactate Dehydrogenase C-Reactive Protein Total Protein Albumin Arterial Blood Glucose Coronavirus (PCR) 06/16/21 06/16/21 06/17/21 17:21 21:27 07:12 WBC MCV MCH MCHC RDW Lymph % (Auto) [place] % (Auto) Eos % (Auto) Lymph # (Auto) [place] # (Auto) Eos # (Auto) Baso # (Auto) Seg Neutrophils % Seg Neuts % (Manual) Lymphocytes % (Manual) Seg Neutrophils # Seg Neutrophils # Man Lymphocytes # (Manual) D-Dimer ABG pH POC ABG pCO2 POC ABG pO2 ABG pO2 ABG HCO3 ABG O2 Saturation ABG Base Excess ABG Oxyhemoglobin ABG Sodium ABG Chloride ABG Glucose Oxyhemoglobin Carboxyhemoglobin Sodium Potassium Chloride Carbon Dioxide BUN Creatinine Glucose POC Glucose 299 H 290 H 67 L Hemoglobin A1c Magnesium Ferritin AST ALT Alkaline Phosphatase Lactate Dehydrogenase C-Reactive Protein Total Protein Albumin Arterial Blood Glucose Coronavirus (PCR) 06/17/21 06/17/21 06/17/21 11:53 17:02 22:25 WBC MCV MCH MCHC RDW Lymph % (Auto) [place] % (Auto) Eos % (Auto) Lymph # (Auto) [place] # (Auto) Eos # (Auto) Baso # (Auto) Seg Neutrophils % Seg Neuts % (Manual) Lymphocytes % (Manual) Seg Neutrophils # Seg Neutrophils # Man Lymphocytes # (Manual) D-Dimer ABG pH POC ABG pCO2 POC ABG pO2 ABG pO2 ABG HCO3 ABG O2 Saturation ABG Base Excess ABG Oxyhemoglobin ABG Sodium ABG Chloride ABG Glucose Oxyhemoglobin Carboxyhemoglobin Sodium Potassium Chloride Carbon Dioxide BUN Creatinine Glucose POC Glucose 199 H 362 H 235 H Hemoglobin A1c Magnesium Ferritin AST ALT Alkaline Phosphatase Lactate Dehydrogenase C-Reactive Protein Total Protein Albumin Arterial Blood Glucose Coronavirus (PCR) 06/18/21 06/18/21 06/18/21 08:00 11:48 16:40 WBC MCV MCH MCHC RDW Lymph % (Auto) [place] % (Auto) Eos % (Auto) Lymph # (Auto) [place] # (Auto) Eos # (Auto) Baso # (Auto) Seg Neutrophils % Seg Neuts % (Manual) Lymphocytes % (Manual) Seg Neutrophils # Seg Neutrophils # Man Lymphocytes # (Manual) D-Dimer ABG pH POC ABG pCO2 POC ABG pO2 ABG pO2 ABG HCO3 ABG O2 Saturation ABG Base Excess ABG Oxyhemoglobin ABG Sodium ABG Chloride ABG Glucose Oxyhemoglobin Carboxyhemoglobin Sodium Potassium Chloride Carbon Dioxide BUN Creatinine Glucose POC Glucose 62 L 211 H 305 H Hemoglobin A1c Magnesium Ferritin AST ALT Alkaline Phosphatase Lactate Dehydrogenase C-Reactive Protein Total Protein Albumin Arterial Blood Glucose Coronavirus (PCR) 06/18/21 06/19/21 06/19/21 21:26 07:27 11:32 WBC MCV MCH MCHC RDW Lymph % (Auto) [place] % (Auto) Eos % (Auto) Lymph # (Auto) [place] # (Auto) Eos # (Auto) Baso # (Auto) Seg Neutrophils % Seg Neuts % (Manual) Lymphocytes % (Manual) Seg Neutrophils # Seg Neutrophils # Man Lymphocytes # (Manual) D-Dimer ABG pH POC ABG pCO2 POC ABG pO2 ABG pO2 ABG HCO3 ABG O2 Saturation ABG Base Excess ABG Oxyhemoglobin ABG Sodium ABG Chloride ABG Glucose Oxyhemoglobin Carboxyhemoglobin Sodium Potassium Chloride Carbon Dioxide BUN Creatinine Glucose POC Glucose 149 H 60 L 208 H Hemoglobin A1c Magnesium Ferritin AST ALT Alkaline Phosphatase Lactate Dehydrogenase C-Reactive Protein Total Protein Albumin Arterial Blood Glucose Coronavirus (PCR) 06/19/21 06/19/21 06/20/21 16:06 22:28 07:48 WBC MCV MCH MCHC RDW Lymph % (Auto) [place] % (Auto) Eos % (Auto) Lymph # (Auto) [place] # (Auto) Eos # (Auto) Baso # (Auto) Seg Neutrophils % Seg Neuts % (Manual) Lymphocytes % (Manual) Seg Neutrophils # Seg Neutrophils # Man Lymphocytes # (Manual) D-Dimer ABG pH POC ABG pCO2 POC ABG pO2 ABG pO2 ABG HCO3 ABG O2 Saturation ABG Base Excess ABG Oxyhemoglobin ABG Sodium ABG Chloride ABG Glucose Oxyhemoglobin Carboxyhemoglobin Sodium Potassium Chloride Carbon Dioxide BUN Creatinine Glucose POC Glucose 266 H 166 H 58 L Hemoglobin A1c Magnesium Ferritin AST ALT Alkaline Phosphatase Lactate Dehydrogenase C-Reactive Protein Total Protein Albumin Arterial Blood Glucose Coronavirus (PCR) 06/20/21 06/20/21 06/20/21 09:09 11:04 16:01 WBC MCV MCH MCHC RDW Lymph % (Auto) [place] % (Auto) Eos % (Auto) Lymph # (Auto) [place] # (Auto) Eos # (Auto) Baso # (Auto) Seg Neutrophils % Seg Neuts % (Manual) Lymphocytes % (Manual) Seg Neutrophils # Seg Neutrophils # Man Lymphocytes # (Manual) D-Dimer ABG pH POC ABG pCO2 POC ABG pO2 ABG pO2 ABG HCO3 ABG O2 Saturation ABG Base Excess ABG Oxyhemoglobin ABG Sodium ABG Chloride ABG Glucose Oxyhemoglobin Carboxyhemoglobin Sodium Potassium Chloride Carbon Dioxide BUN Creatinine Glucose POC Glucose 146 H 225 H 330 H Hemoglobin A1c Magnesium Ferritin AST ALT Alkaline Phosphatase Lactate Dehydrogenase C-Reactive Protein Total Protein Albumin Arterial Blood Glucose Coronavirus (PCR) 06/20/21 06/21/21 06/21/21 20:46 06:45 06:45 WBC MCV MCH MCHC RDW 20.0 H Lymph % (Auto) [place] % (Auto) Eos % (Auto) Lymph # (Auto) [place] # (Auto) Eos # (Auto) Baso # (Auto) Seg Neutrophils % Seg Neuts % (Manual) Lymphocytes % (Manual) Seg Neutrophils # Seg Neutrophils # Man Lymphocytes # (Manual) D-Dimer ABG pH POC ABG pCO2 POC ABG pO2 ABG pO2 ABG HCO3 ABG O2 Saturation ABG Base Excess ABG Oxyhemoglobin ABG Sodium ABG Chloride ABG Glucose Oxyhemoglobin Carboxyhemoglobin Sodium Potassium 2.9 L* Chloride 95.0 L Carbon Dioxide 31 H BUN 23 H Creatinine 0.2 L Glucose 45 L POC Glucose 215 H Hemoglobin A1c Magnesium Ferritin AST ALT Alkaline Phosphatase Lactate Dehydrogenase C-Reactive Protein Total Protein Albumin Arterial Blood Glucose Coronavirus (PCR) 06/21/21 06/21/21 06/21/21 07:38 09:06 12:40 WBC MCV MCH MCHC RDW Lymph % (Auto) [place] % (Auto) Eos % (Auto) Lymph # (Auto) [place] # (Auto) Eos # (Auto) Baso # (Auto) Seg Neutrophils % Seg Neuts % (Manual) Lymphocytes % (Manual) Seg Neutrophils # Seg Neutrophils # Man Lymphocytes # (Manual) D-Dimer ABG pH POC ABG pCO2 POC ABG pO2 ABG pO2 ABG HCO3 ABG O2 Saturation ABG Base Excess ABG Oxyhemoglobin ABG Sodium ABG Chloride ABG Glucose Oxyhemoglobin Carboxyhemoglobin Sodium Potassium Chloride Carbon Dioxide BUN Creatinine Glucose POC Glucose 50 L 196 H 205 H Hemoglobin A1c Magnesium Ferritin AST ALT Alkaline Phosphatase Lactate Dehydrogenase C-Reactive Protein Total Protein Albumin Arterial Blood Glucose Coronavirus (PCR) 06/21/21 06/22/21 06/22/21 21:36 06:25 07:15 WBC MCV MCH MCHC RDW Lymph % (Auto) [place] % (Auto) Eos % (Auto) Lymph # (Auto) [place] # (Auto) Eos # (Auto) Baso # (Auto) Seg Neutrophils % Seg Neuts % (Manual) Lymphocytes % (Manual) Seg Neutrophils # Seg Neutrophils # Man Lymphocytes # (Manual) D-Dimer ABG pH POC ABG pCO2 POC ABG pO2 ABG pO2 ABG HCO3 ABG O2 Saturation ABG Base Excess ABG Oxyhemoglobin ABG Sodium ABG Chloride ABG Glucose Oxyhemoglobin Carboxyhemoglobin Sodium Potassium Chloride Carbon Dioxide BUN 20 H Creatinine 0.2 L Glucose POC Glucose 245 H 66 L Hemoglobin A1c Magnesium Ferritin AST ALT Alkaline Phosphatase Lactate Dehydrogenase C-Reactive Protein Total Protein Albumin Arterial Blood Glucose Coronavirus (PCR) 06/22/21 06/22/21 06/22/21 11:03 16:07 22:03 WBC MCV MCH MCHC RDW Lymph % (Auto) [place] % (Auto) Eos % (Auto) Lymph # (Auto) [place] # (Auto) Eos # (Auto) Baso # (Auto) Seg Neutrophils % Seg Neuts % (Manual) Lymphocytes % (Manual) Seg Neutrophils # Seg Neutrophils # Man Lymphocytes # (Manual) D-Dimer ABG pH POC ABG pCO2 POC ABG pO2 ABG pO2 ABG HCO3 ABG O2 Saturation ABG Base Excess ABG Oxyhemoglobin ABG Sodium ABG Chloride ABG Glucose Oxyhemoglobin Carboxyhemoglobin Sodium Potassium Chloride Carbon Dioxide BUN Creatinine Glucose POC Glucose 184 H 326 H 138 H Hemoglobin A1c Magnesium Ferritin AST ALT Alkaline Phosphatase Lactate Dehydrogenase C-Reactive Protein Total Protein Albumin Arterial Blood Glucose Coronavirus (PCR) 06/23/21 06/23/21 06/23/21 07:19 10:34 16:35 WBC MCV MCH MCHC RDW Lymph % (Auto) [place] % (Auto) Eos % (Auto) Lymph # (Auto) [place] # (Auto) Eos # (Auto) Baso # (Auto) Seg Neutrophils % Seg Neuts % (Manual) Lymphocytes % (Manual) Seg Neutrophils # Seg Neutrophils # Man Lymphocytes # (Manual) D-Dimer ABG pH POC ABG pCO2 POC ABG pO2 ABG pO2 ABG HCO3 ABG O2 Saturation ABG Base Excess ABG Oxyhemoglobin ABG Sodium ABG Chloride ABG Glucose Oxyhemoglobin Carboxyhemoglobin Sodium Potassium Chloride Carbon Dioxide BUN Creatinine Glucose POC Glucose 69 L 218 H 326 H Hemoglobin A1c Magnesium Ferritin AST ALT Alkaline Phosphatase Lactate Dehydrogenase C-Reactive Protein Total Protein Albumin Arterial Blood Glucose Coronavirus (PCR) 06/23/21 06/24/21 06/24/21 22:44 11:41 16:54 WBC MCV MCH MCHC RDW Lymph % (Auto) [place] % (Auto) Eos % (Auto) Lymph # (Auto) [place] # (Auto) Eos # (Auto) Baso # (Auto) Seg Neutrophils % Seg Neuts % (Manual) Lymphocytes % (Manual) Seg Neutrophils # Seg Neutrophils # Man Lymphocytes # (Manual) D-Dimer ABG pH POC ABG pCO2 POC ABG pO2 ABG pO2 ABG HCO3 ABG O2 Saturation ABG Base Excess ABG Oxyhemoglobin ABG Sodium ABG Chloride ABG Glucose Oxyhemoglobin Carboxyhemoglobin Sodium Potassium Chloride Carbon Dioxide BUN Creatinine Glucose POC Glucose 252 H 217 H 357 H Hemoglobin A1c Magnesium Ferritin AST ALT Alkaline Phosphatase Lactate Dehydrogenase C-Reactive Protein Total Protein Albumin Arterial Blood Glucose Coronavirus (PCR) 06/24/21 06/25/21 06/25/21 20:40 11:51 16:47 WBC MCV MCH MCHC RDW Lymph % (Auto) [place] % (Auto) Eos % (Auto) Lymph # (Auto) [place] # (Auto) Eos # (Auto) Baso # (Auto) Seg Neutrophils % Seg Neuts % (Manual) Lymphocytes % (Manual) Seg Neutrophils # Seg Neutrophils # Man Lymphocytes # (Manual) D-Dimer ABG pH POC ABG pCO2 POC ABG pO2 ABG pO2 ABG HCO3 ABG O2 Saturation ABG Base Excess ABG Oxyhemoglobin ABG Sodium ABG Chloride ABG Glucose Oxyhemoglobin Carboxyhemoglobin Sodium Potassium Chloride Carbon Dioxide BUN Creatinine Glucose POC Glucose 239 H 182 H 229 H Hemoglobin A1c Magnesium Ferritin AST ALT Alkaline Phosphatase Lactate Dehydrogenase C-Reactive Protein Total Protein Albumin Arterial Blood Glucose Coronavirus (PCR) 06/25/21 06/26/21 06/26/21 22:27 07:20 12:19 WBC MCV MCH MCHC RDW Lymph % (Auto) [place] % (Auto) Eos % (Auto) Lymph # (Auto) [place] # (Auto) Eos # (Auto) Baso # (Auto) Seg Neutrophils % Seg Neuts % (Manual) Lymphocytes % (Manual) Seg Neutrophils # Seg Neutrophils # Man Lymphocytes # (Manual) D-Dimer ABG pH POC ABG pCO2 POC ABG pO2 ABG pO2 ABG HCO3 ABG O2 Saturation ABG Base Excess ABG Oxyhemoglobin ABG Sodium ABG Chloride ABG Glucose Oxyhemoglobin Carboxyhemoglobin Sodium Potassium 3.2 L D Chloride Carbon Dioxide BUN 20 H Creatinine 0.3 L Glucose POC Glucose 209 H 273 H Hemoglobin A1c Magnesium Ferritin AST ALT 77 H Alkaline Phosphatase Lactate Dehydrogenase C-Reactive Protein Total Protein Albumin 3.3 L Arterial Blood Glucose Coronavirus (PCR) 06/26/21 06/26/21 06/27/21 16:52 20:55 07:14 WBC MCV MCH MCHC RDW Lymph % (Auto) [place] % (Auto) Eos % (Auto) Lymph # (Auto) [place] # (Auto) Eos # (Auto) Baso # (Auto) Seg Neutrophils % Seg Neuts % (Manual) Lymphocytes % (Manual) Seg Neutrophils # Seg Neutrophils # Man Lymphocytes # (Manual) D-Dimer ABG pH POC ABG pCO2 POC ABG pO2 ABG pO2 ABG HCO3 ABG O2 Saturation ABG Base Excess ABG Oxyhemoglobin ABG Sodium ABG Chloride ABG Glucose Oxyhemoglobin Carboxyhemoglobin Sodium Potassium Chloride Carbon Dioxide 31 H BUN 19 H Creatinine 0.2 L Glucose 112 H POC Glucose 326 H 220 H Hemoglobin A1c Magnesium Ferritin AST ALT Alkaline Phosphatase Lactate Dehydrogenase C-Reactive Protein Total Protein Albumin Arterial Blood Glucose Coronavirus (PCR) 06/27/21 06/27/21 06/27/21 07:29 10:54 15:49 WBC MCV MCH MCHC RDW Lymph % (Auto) [place] % (Auto) Eos % (Auto) Lymph # (Auto) [place] # (Auto) Eos # (Auto) Baso # (Auto) Seg Neutrophils % Seg Neuts % (Manual) Lymphocytes % (Manual) Seg Neutrophils # Seg Neutrophils # Man Lymphocytes # (Manual) D-Dimer ABG pH POC ABG pCO2 POC ABG pO2 ABG pO2 ABG HCO3 ABG O2 Saturation ABG Base Excess ABG Oxyhemoglobin ABG Sodium ABG Chloride ABG Glucose Oxyhemoglobin Carboxyhemoglobin Sodium Potassium Chloride Carbon Dioxide BUN Creatinine Glucose POC Glucose 115 H 228 H 240 H Hemoglobin A1c Magnesium Ferritin AST ALT Alkaline Phosphatase Lactate Dehydrogenase C-Reactive Protein Total Protein Albumin Arterial Blood Glucose Coronavirus (PCR) 06/28/21 06/28/21 06/28/21 05:43 05:43 07:13 WBC MCV MCH 33 H MCHC RDW 19.8 H Lymph % (Auto) [place] % (Auto) Eos % (Auto) Lymph # (Auto) [place] # (Auto) Eos # (Auto) Baso # (Auto) Seg Neutrophils % Seg Neuts % (Manual) Lymphocytes % (Manual) Seg Neutrophils # Seg Neutrophils # Man Lymphocytes # (Manual) D-Dimer ABG pH POC ABG pCO2 POC ABG pO2 ABG pO2 ABG HCO3 ABG O2 Saturation ABG Base Excess ABG Oxyhemoglobin ABG Sodium ABG Chloride ABG Glucose Oxyhemoglobin Carboxyhemoglobin Sodium Potassium 3.3 L Chloride Carbon Dioxide BUN 22 H Creatinine 0.2 L Glucose POC Glucose 69 L Hemoglobin A1c Magnesium Ferritin AST ALT 63 H Alkaline Phosphatase Lactate Dehydrogenase C-Reactive Protein Total Protein Albumin 3.3 L Arterial Blood Glucose Coronavirus (PCR) 06/28/21 06/28/21 06/28/21 12:18 15:37 21:01 WBC MCV MCH MCHC RDW Lymph % (Auto) [place] % (Auto) Eos % (Auto) Lymph # (Auto) [place] # (Auto) Eos # (Auto) Baso # (Auto) Seg Neutrophils % Seg Neuts % (Manual) Lymphocytes % (Manual) Seg Neutrophils # Seg Neutrophils # Man Lymphocytes # (Manual) D-Dimer ABG pH POC ABG pCO2 POC ABG pO2 ABG pO2 ABG HCO3 ABG O2 Saturation ABG Base Excess ABG Oxyhemoglobin ABG Sodium ABG Chloride ABG Glucose Oxyhemoglobin Carboxyhemoglobin Sodium Potassium Chloride Carbon Dioxide BUN Creatinine Glucose POC Glucose 154 H 201 H 191 H Hemoglobin A1c Magnesium Ferritin AST ALT Alkaline Phosphatase Lactate Dehydrogenase C-Reactive Protein Total Protein Albumin Arterial Blood Glucose Coronavirus (PCR) 06/29/21 06/29/21 06/29/21 11:55 15:47 21:06 WBC MCV MCH MCHC RDW Lymph % (Auto) [place] % (Auto) Eos % (Auto) Lymph # (Auto) [place] # (Auto) Eos # (Auto) Baso # (Auto) Seg Neutrophils % Seg Neuts % (Manual) Lymphocytes % (Manual) Seg Neutrophils # Seg Neutrophils # Man Lymphocytes # (Manual) D-Dimer ABG pH POC ABG pCO2 POC ABG pO2 ABG pO2 ABG HCO3 ABG O2 Saturation ABG Base Excess ABG Oxyhemoglobin ABG Sodium ABG Chloride ABG Glucose Oxyhemoglobin Carboxyhemoglobin Sodium Potassium Chloride Carbon Dioxide BUN Creatinine Glucose POC Glucose 238 H 249 H 155 H Hemoglobin A1c Magnesium Ferritin AST ALT Alkaline Phosphatase Lactate Dehydrogenase C-Reactive Protein Total Protein Albumin Arterial Blood Glucose Coronavirus (PCR) 06/30/21 06/30/21 06/30/21 04:00 07:50 11:50 WBC MCV MCH MCHC RDW Lymph % (Auto) [place] % (Auto) Eos % (Auto) Lymph # (Auto) [place] # (Auto) Eos # (Auto) Baso # (Auto) Seg Neutrophils % Seg Neuts % (Manual) Lymphocytes % (Manual) Seg Neutrophils # Seg Neutrophils # Man Lymphocytes # (Manual) D-Dimer ABG pH POC ABG pCO2 POC ABG pO2 ABG pO2 ABG HCO3 ABG O2 Saturation ABG Base Excess ABG Oxyhemoglobin ABG Sodium ABG Chloride ABG Glucose Oxyhemoglobin Carboxyhemoglobin Sodium Potassium 3.5 L Chloride Carbon Dioxide BUN 18 H Creatinine 0.3 L Glucose 111 H POC Glucose 117 H 250 H Hemoglobin A1c Magnesium Ferritin AST ALT Alkaline Phosphatase Lactate Dehydrogenase C-Reactive Protein Total Protein Albumin Arterial Blood Glucose Coronavirus (PCR) 06/30/21 06/30/21 07/01/21 16:05 21:02 07:26 WBC MCV MCH MCHC RDW Lymph % (Auto) [place] % (Auto) Eos % (Auto) Lymph # (Auto) [place] # (Auto) Eos # (Auto) Baso # (Auto) Seg Neutrophils % Seg Neuts % (Manual) Lymphocytes % (Manual) Seg Neutrophils # Seg Neutrophils # Man Lymphocytes # (Manual) D-Dimer ABG pH POC ABG pCO2 POC ABG pO2 ABG pO2 ABG HCO3 ABG O2 Saturation ABG Base Excess ABG Oxyhemoglobin ABG Sodium ABG Chloride ABG Glucose Oxyhemoglobin Carboxyhemoglobin Sodium Potassium Chloride Carbon Dioxide BUN Creatinine Glucose POC Glucose 250 H 217 H 111 H Hemoglobin A1c Magnesium Ferritin AST ALT Alkaline Phosphatase Lactate Dehydrogenase C-Reactive Protein Total Protein Albumin Arterial Blood Glucose Coronavirus (PCR) 07/01/21 07/01/21 07/01/21 11:06 15:48 21:31 WBC MCV MCH MCHC RDW Lymph % (Auto) [place] % (Auto) Eos % (Auto) Lymph # (Auto) [place] # (Auto) Eos # (Auto) Baso # (Auto) Seg Neutrophils % Seg Neuts % (Manual) Lymphocytes % (Manual) Seg Neutrophils # Seg Neutrophils # Man Lymphocytes # (Manual) D-Dimer ABG pH POC ABG pCO2 POC ABG pO2 ABG pO2 ABG HCO3 ABG O2 Saturation ABG Base Excess ABG Oxyhemoglobin ABG Sodium ABG Chloride ABG Glucose Oxyhemoglobin Carboxyhemoglobin Sodium Potassium Chloride Carbon Dioxide BUN Creatinine Glucose POC Glucose 229 H 239 H 199 H Hemoglobin A1c Magnesium Ferritin AST ALT Alkaline Phosphatase Lactate Dehydrogenase C-Reactive Protein Total Protein Albumin Arterial Blood Glucose Coronavirus (PCR) 07/02/21 07/02/21 07/02/21 11:50 16:44 21:49 WBC MCV MCH MCHC RDW Lymph % (Auto) [place] % (Auto) Eos % (Auto) Lymph # (Auto) [place] # (Auto) Eos # (Auto) Baso # (Auto) Seg Neutrophils % Seg Neuts % (Manual) Lymphocytes % (Manual) Seg Neutrophils # Seg Neutrophils # Man Lymphocytes # (Manual) D-Dimer ABG pH POC ABG pCO2 POC ABG pO2 ABG pO2 ABG HCO3 ABG O2 Saturation ABG Base Excess ABG Oxyhemoglobin ABG Sodium ABG Chloride ABG Glucose Oxyhemoglobin Carboxyhemoglobin Sodium Potassium Chloride Carbon Dioxide BUN Creatinine Glucose POC Glucose 230 H 203 H 197 H Hemoglobin A1c Magnesium Ferritin AST ALT Alkaline Phosphatase Lactate Dehydrogenase C-Reactive Protein Total Protein Albumin Arterial Blood Glucose Coronavirus (PCR) 07/03/21 07/03/21 07/03/21 05:46 05:46 11:59 WBC MCV MCH MCHC RDW 19.6 H Lymph % (Auto) [place] % (Auto) Eos % (Auto) Lymph # (Auto) [place] # (Auto) Eos # (Auto) Baso # (Auto) Seg Neutrophils % Seg Neuts % (Manual) Lymphocytes % (Manual) Seg Neutrophils # Seg Neutrophils # Man Lymphocytes # (Manual) D-Dimer ABG pH POC ABG pCO2 POC ABG pO2 ABG pO2 ABG HCO3 ABG O2 Saturation ABG Base Excess ABG Oxyhemoglobin ABG Sodium ABG Chloride ABG Glucose Oxyhemoglobin Carboxyhemoglobin Sodium Potassium 3.2 L Chloride Carbon Dioxide BUN Creatinine 0.3 L Glucose POC Glucose 145 H Hemoglobin A1c Magnesium Ferritin AST ALT Alkaline Phosphatase Lactate Dehydrogenase C-Reactive Protein Total Protein Albumin Arterial Blood Glucose Coronavirus (PCR) 07/03/21 07/03/21 07/04/21 16:40 22:00 06:35 WBC MCV MCH MCHC RDW Lymph % (Auto) [place] % (Auto) Eos % (Auto) Lymph # (Auto) [place] # (Auto) Eos # (Auto) Baso # (Auto) Seg Neutrophils % Seg Neuts % (Manual) Lymphocytes % (Manual) Seg Neutrophils # Seg Neutrophils # Man Lymphocytes # (Manual) D-Dimer ABG pH POC ABG pCO2 POC ABG pO2 ABG pO2 ABG HCO3 ABG O2 Saturation ABG Base Excess ABG Oxyhemoglobin ABG Sodium ABG Chloride ABG Glucose Oxyhemoglobin Carboxyhemoglobin Sodium Potassium Chloride Carbon Dioxide BUN Creatinine 0.3 L Glucose 118 H POC Glucose 176 H 127 H Hemoglobin A1c Magnesium Ferritin AST ALT Alkaline Phosphatase Lactate Dehydrogenase C-Reactive Protein Total Protein Albumin Arterial Blood Glucose Coronavirus (PCR) 07/04/21 07/04/21 07/05/21 12:30 16:38 08:37 WBC MCV MCH MCHC RDW Lymph % (Auto) [place] % (Auto) Eos % (Auto) Lymph # (Auto) [place] # (Auto) Eos # (Auto) Baso # (Auto) Seg Neutrophils % Seg Neuts % (Manual) Lymphocytes % (Manual) Seg Neutrophils # Seg Neutrophils # Man Lymphocytes # (Manual) D-Dimer ABG pH POC ABG pCO2 POC ABG pO2 ABG pO2 ABG HCO3 ABG O2 Saturation ABG Base Excess ABG Oxyhemoglobin ABG Sodium ABG Chloride ABG Glucose Oxyhemoglobin Carboxyhemoglobin Sodium Potassium Chloride Carbon Dioxide BUN Creatinine Glucose POC Glucose 162 H 205 H 115 H Hemoglobin A1c Magnesium Ferritin AST ALT Alkaline Phosphatase Lactate Dehydrogenase C-Reactive Protein Total Protein Albumin Arterial Blood Glucose Coronavirus (PCR) 07/05/21 07/05/21 07/05/21 10:57 16:42 21:14 WBC MCV MCH MCHC RDW Lymph % (Auto) [place] % (Auto) Eos % (Auto) Lymph # (Auto) [place] # (Auto) Eos # (Auto) Baso # (Auto) Seg Neutrophils % Seg Neuts % (Manual) Lymphocytes % (Manual) Seg Neutrophils # Seg Neutrophils # Man Lymphocytes # (Manual) D-Dimer ABG pH POC ABG pCO2 POC ABG pO2 ABG pO2 ABG HCO3 ABG O2 Saturation ABG Base Excess ABG Oxyhemoglobin ABG Sodium ABG Chloride ABG Glucose Oxyhemoglobin Carboxyhemoglobin Sodium Potassium Chloride Carbon Dioxide BUN Creatinine Glucose POC Glucose 151 H 184 H 130 H Hemoglobin A1c Magnesium Ferritin AST ALT Alkaline Phosphatase Lactate Dehydrogenase C-Reactive Protein Total Protein Albumin Arterial Blood Glucose Coronavirus (PCR) 07/06/21 07/06/21 07/06/21 07:31 11:49 16:46 WBC MCV MCH MCHC RDW Lymph % (Auto) [place] % (Auto) Eos % (Auto) Lymph # (Auto) [place] # (Auto) Eos # (Auto) Baso # (Auto) Seg Neutrophils % Seg Neuts % (Manual) Lymphocytes % (Manual) Seg Neutrophils # Seg Neutrophils # Man Lymphocytes # (Manual) D-Dimer ABG pH POC ABG pCO2 POC ABG pO2 ABG pO2 ABG HCO3 ABG O2 Saturation ABG Base Excess ABG Oxyhemoglobin ABG Sodium ABG Chloride ABG Glucose Oxyhemoglobin Carboxyhemoglobin Sodium Potassium Chloride Carbon Dioxide BUN Creatinine Glucose POC Glucose 106 H 173 H 205 H Hemoglobin A1c Magnesium Ferritin AST ALT Alkaline Phosphatase Lactate Dehydrogenase C-Reactive Protein Total Protein Albumin Arterial Blood Glucose Coronavirus (PCR) 07/06/21 07/07/21 07/07/21 21:38 06:00 06:00 WBC 16.1 H MCV MCH MCHC RDW 18.8 H Lymph % (Auto) [place] % (Auto) Eos % (Auto) Lymph # (Auto) [place] # (Auto) 1.1 H Eos # (Auto) Baso # (Auto) 0.2 H Seg Neutrophils % 74.9 H Seg Neuts % (Manual) Lymphocytes % (Manual) Seg Neutrophils # 12.1 H Seg Neutrophils # Man Lymphocytes # (Manual) D-Dimer ABG pH POC ABG pCO2 POC ABG pO2 ABG pO2 ABG HCO3 ABG O2 Saturation ABG Base Excess ABG Oxyhemoglobin ABG Sodium ABG Chloride ABG Glucose Oxyhemoglobin Carboxyhemoglobin Sodium Potassium 3.5 L D Chloride Carbon Dioxide BUN 6 L Creatinine < 0.2 L Glucose 106 H POC Glucose 120 H Hemoglobin A1c Magnesium Ferritin AST ALT Alkaline Phosphatase Lactate Dehydrogenase C-Reactive Protein Total Protein Albumin Arterial Blood Glucose Coronavirus (PCR) 07/07/21 07/07/21 07/07/21 07:10 11:53 15:53 WBC MCV MCH MCHC RDW Lymph % (Auto) [place] % (Auto) Eos % (Auto) Lymph # (Auto) [place] # (Auto) Eos # (Auto) Baso # (Auto) Seg Neutrophils % Seg Neuts % (Manual) Lymphocytes % (Manual) Seg Neutrophils # Seg Neutrophils # Man Lymphocytes # (Manual) D-Dimer ABG pH POC ABG pCO2 POC ABG pO2 ABG pO2 ABG HCO3 ABG O2 Saturation ABG Base Excess ABG Oxyhemoglobin ABG Sodium ABG Chloride ABG Glucose Oxyhemoglobin Carboxyhemoglobin Sodium Potassium Chloride Carbon Dioxide BUN Creatinine Glucose POC Glucose 132 H 169 H 242 H Hemoglobin A1c Magnesium Ferritin AST ALT Alkaline Phosphatase Lactate Dehydrogenase C-Reactive Protein Total Protein Albumin Arterial Blood Glucose Coronavirus (PCR) 07/07/21 07/08/21 07/08/21 21:41 08:09 12:20 WBC MCV MCH MCHC RDW Lymph % (Auto) [place] % (Auto) Eos % (Auto) Lymph # (Auto) [place] # (Auto) Eos # (Auto) Baso # (Auto) Seg Neutrophils % Seg Neuts % (Manual) Lymphocytes % (Manual) Seg Neutrophils # Seg Neutrophils # Man Lymphocytes # (Manual) D-Dimer ABG pH POC ABG pCO2 POC ABG pO2 ABG pO2 ABG HCO3 ABG O2 Saturation ABG Base Excess ABG Oxyhemoglobin ABG Sodium ABG Chloride ABG Glucose Oxyhemoglobin Carboxyhemoglobin Sodium Potassium Chloride Carbon Dioxide BUN Creatinine Glucose POC Glucose 128 H 132 H 179 H Hemoglobin A1c Magnesium Ferritin AST ALT Alkaline Phosphatase Lactate Dehydrogenase C-Reactive Protein Total Protein Albumin Arterial Blood Glucose Coronavirus (PCR) 07/08/21 07/08/21 07/08/21 16:37 21:45 22:44 WBC MCV MCH MCHC RDW Lymph % (Auto) [place] % (Auto) Eos % (Auto) Lymph # (Auto) [place] # (Auto) Eos # (Auto) Baso # (Auto) Seg Neutrophils % Seg Neuts % (Manual) Lymphocytes % (Manual) Seg Neutrophils # Seg Neutrophils # Man Lymphocytes # (Manual) D-Dimer ABG pH POC ABG pCO2 POC ABG pO2 ABG pO2 ABG HCO3 ABG O2 Saturation ABG Base Excess ABG Oxyhemoglobin ABG Sodium ABG Chloride ABG Glucose Oxyhemoglobin Carboxyhemoglobin Sodium Potassium Chloride Carbon Dioxide BUN Creatinine Glucose POC Glucose 192 H 51 L 137 H Hemoglobin A1c Magnesium Ferritin AST ALT Alkaline Phosphatase Lactate Dehydrogenase C-Reactive Protein Total Protein Albumin Arterial Blood Glucose Coronavirus (PCR) 07/09/21 07/09/21 07/09/21 04:45 04:45 04:45 WBC MCV MCH MCHC RDW 18.3 H Lymph % (Auto) [place] % (Auto) Eos % (Auto) Lymph # (Auto) [place] # (Auto) Eos # (Auto) Baso # (Auto) Seg Neutrophils % Seg Neuts % (Manual) 82.0 H Lymphocytes % (Manual) 13.0 L Seg Neutrophils # Seg Neutrophils # Man 7.8 H Lymphocytes # (Manual) D-Dimer 638.35 H ABG pH POC ABG pCO2 POC ABG pO2 ABG pO2 ABG HCO3 ABG O2 Saturation ABG Base Excess ABG Oxyhemoglobin ABG Sodium ABG Chloride ABG Glucose Oxyhemoglobin Carboxyhemoglobin Sodium Potassium Chloride 96.9 L Carbon Dioxide 35 H BUN Creatinine 0.2 L Glucose 135 H POC Glucose Hemoglobin A1c Magnesium Ferritin AST ALT Alkaline Phosphatase Lactate Dehydrogenase C-Reactive Protein 4.30 H Total Protein Albumin Arterial Blood Glucose Coronavirus (PCR) 07/09/21 07/09/21 07/09/21 05:19 07:36 11:16 WBC MCV MCH MCHC RDW Lymph % (Auto) [place] % (Auto) Eos % (Auto) Lymph # (Auto) [place] # (Auto) Eos # (Auto) Baso # (Auto) Seg Neutrophils % Seg Neuts % (Manual) Lymphocytes % (Manual) Seg Neutrophils # Seg Neutrophils # Man Lymphocytes # (Manual) D-Dimer ABG pH POC ABG pCO2 POC ABG pO2 ABG pO2 ABG HCO3 ABG O2 Saturation ABG Base Excess ABG Oxyhemoglobin ABG Sodium ABG Chloride ABG Glucose Oxyhemoglobin Carboxyhemoglobin Sodium Potassium Chloride Carbon Dioxide BUN Creatinine Glucose POC Glucose 135 H 148 H 212 H Hemoglobin A1c Magnesium Ferritin AST ALT Alkaline Phosphatase Lactate Dehydrogenase C-Reactive Protein Total Protein Albumin Arterial Blood Glucose Coronavirus (PCR) 07/09/21 07/09/21 07/10/21 15:21 21:12 05:40 WBC MCV MCH MCHC RDW Lymph % (Auto) [place] % (Auto) Eos % (Auto) Lymph # (Auto) [place] # (Auto) Eos # (Auto) Baso # (Auto) Seg Neutrophils % Seg Neuts % (Manual) Lymphocytes % (Manual) Seg Neutrophils # Seg Neutrophils # Man Lymphocytes # (Manual) D-Dimer ABG pH POC ABG pCO2 POC ABG pO2 ABG pO2 ABG HCO3 ABG O2 Saturation ABG Base Excess ABG Oxyhemoglobin ABG Sodium ABG Chloride ABG Glucose Oxyhemoglobin Carboxyhemoglobin Sodium Potassium 3.3 L Chloride 95.1 L Carbon Dioxide 39 H BUN Creatinine 0.2 L Glucose 122 H POC Glucose 128 H 196 H Hemoglobin A1c Magnesium Ferritin AST ALT Alkaline Phosphatase Lactate Dehydrogenase C-Reactive Protein Total Protein Albumin Arterial Blood Glucose Coronavirus (PCR) 07/10/21 07/10/21 07/10/21 07:38 11:15 16:29 WBC MCV MCH MCHC RDW Lymph % (Auto) [place] % (Auto) Eos % (Auto) Lymph # (Auto) [place] # (Auto) Eos # (Auto) Baso # (Auto) Seg Neutrophils % Seg Neuts % (Manual) Lymphocytes % (Manual) Seg Neutrophils # Seg Neutrophils # Man Lymphocytes # (Manual) D-Dimer ABG pH POC ABG pCO2 POC ABG pO2 ABG pO2 ABG HCO3 ABG O2 Saturation ABG Base Excess ABG Oxyhemoglobin ABG Sodium ABG Chloride ABG Glucose Oxyhemoglobin Carboxyhemoglobin Sodium Potassium Chloride Carbon Dioxide BUN Creatinine Glucose POC Glucose 128 H 175 H 174 H Hemoglobin A1c Magnesium Ferritin AST ALT Alkaline Phosphatase Lactate Dehydrogenase C-Reactive Protein Total Protein Albumin Arterial Blood Glucose Coronavirus (PCR) 07/10/21 07/11/21 07/11/21 20:49 05:50 12:08 WBC MCV MCH MCHC RDW Lymph % (Auto) [place] % (Auto) Eos % (Auto) Lymph # (Auto) [place] # (Auto) Eos # (Auto) Baso # (Auto) Seg Neutrophils % Seg Neuts % (Manual) Lymphocytes % (Manual) Seg Neutrophils # Seg Neutrophils # Man Lymphocytes # (Manual) D-Dimer ABG pH POC ABG pCO2 POC ABG pO2 ABG pO2 ABG HCO3 ABG O2 Saturation ABG Base Excess ABG Oxyhemoglobin ABG Sodium ABG Chloride ABG Glucose Oxyhemoglobin Carboxyhemoglobin Sodium Potassium Chloride 97.3 L Carbon Dioxide 34 H BUN Creatinine 0.2 L Glucose 109 H POC Glucose 142 H 220 H Hemoglobin A1c Magnesium Ferritin AST ALT Alkaline Phosphatase Lactate Dehydrogenase C-Reactive Protein Total Protein Albumin Arterial Blood Glucose Coronavirus (PCR) 07/11/21 07/11/21 07/12/21 17:09 21:55 07:36 WBC MCV MCH MCHC RDW Lymph % (Auto) [place] % (Auto) Eos % (Auto) Lymph # (Auto) [place] # (Auto) Eos # (Auto) Baso # (Auto) Seg Neutrophils % Seg Neuts % (Manual) Lymphocytes % (Manual) Seg Neutrophils # Seg Neutrophils # Man Lymphocytes # (Manual) D-Dimer ABG pH POC ABG pCO2 POC ABG pO2 ABG pO2 ABG HCO3 ABG O2 Saturation ABG Base Excess ABG Oxyhemoglobin ABG Sodium ABG Chloride ABG Glucose Oxyhemoglobin Carboxyhemoglobin Sodium Potassium Chloride Carbon Dioxide BUN Creatinine Glucose POC Glucose 219 H 124 H 114 H Hemoglobin A1c Magnesium Ferritin AST ALT Alkaline Phosphatase Lactate Dehydrogenase C-Reactive Protein Total Protein Albumin Arterial Blood Glucose Coronavirus (PCR) 07/12/21 07/12/21 07/12/21 11:08 15:43 22:20 WBC MCV MCH MCHC RDW Lymph % (Auto) [place] % (Auto) Eos % (Auto) Lymph # (Auto) [place] # (Auto) Eos # (Auto) Baso # (Auto) Seg Neutrophils % Seg Neuts % (Manual) Lymphocytes % (Manual) Seg Neutrophils # Seg Neutrophils # Man Lymphocytes # (Manual) D-Dimer ABG pH POC ABG pCO2 POC ABG pO2 ABG pO2 ABG HCO3 ABG O2 Saturation ABG Base Excess ABG Oxyhemoglobin ABG Sodium ABG Chloride ABG Glucose Oxyhemoglobin Carboxyhemoglobin Sodium Potassium Chloride Carbon Dioxide BUN Creatinine Glucose POC Glucose 195 H 276 H 189 H Hemoglobin A1c Magnesium Ferritin AST ALT Alkaline Phosphatase Lactate Dehydrogenase C-Reactive Protein Total Protein Albumin Arterial Blood Glucose Coronavirus (PCR) 07/13/21 07/13/21 07/13/21 08:01 08:08 10:17 WBC MCV MCH MCHC RDW Lymph % (Auto) [place] % (Auto) Eos % (Auto) Lymph # (Auto) [place] # (Auto) Eos # (Auto) Baso # (Auto) Seg Neutrophils % Seg Neuts % (Manual) Lymphocytes % (Manual) Seg Neutrophils # Seg Neutrophils # Man Lymphocytes # (Manual) D-Dimer ABG pH POC ABG pCO2 POC ABG pO2 ABG pO2 ABG HCO3 ABG O2 Saturation ABG Base Excess ABG Oxyhemoglobin ABG Sodium ABG Chloride ABG Glucose Oxyhemoglobin Carboxyhemoglobin Sodium Potassium Chloride 94.4 L Carbon Dioxide 34 H BUN Creatinine 0.3 L Glucose 149 H POC Glucose 132 H 265 H Hemoglobin A1c Magnesium Ferritin AST ALT Alkaline Phosphatase Lactate Dehydrogenase C-Reactive Protein Total Protein Albumin Arterial Blood Glucose Coronavirus (PCR) 07/13/21 07/13/21 07/14/21 17:58 21:41 07:34 WBC MCV MCH MCHC RDW Lymph % (Auto) [place] % (Auto) Eos % (Auto) Lymph # (Auto) [place] # (Auto) Eos # (Auto) Baso # (Auto) Seg Neutrophils % Seg Neuts % (Manual) Lymphocytes % (Manual) Seg Neutrophils # Seg Neutrophils # Man Lymphocytes # (Manual) D-Dimer ABG pH POC ABG pCO2 POC ABG pO2 ABG pO2 ABG HCO3 ABG O2 Saturation ABG Base Excess ABG Oxyhemoglobin ABG Sodium ABG Chloride ABG Glucose Oxyhemoglobin Carboxyhemoglobin Sodium Potassium Chloride Carbon Dioxide BUN Creatinine Glucose POC Glucose 217 H 223 H 116 H Hemoglobin A1c Magnesium Ferritin AST ALT Alkaline Phosphatase Lactate Dehydrogenase C-Reactive Protein Total Protein Albumin Arterial Blood Glucose Coronavirus (PCR) 07/14/21 07/14/21 07/14/21 10:50 17:33 20:51 WBC MCV MCH MCHC RDW Lymph % (Auto) [place] % (Auto) Eos % (Auto) Lymph # (Auto) [place] # (Auto) Eos # (Auto) Baso # (Auto) Seg Neutrophils % Seg Neuts % (Manual) Lymphocytes % (Manual) Seg Neutrophils # Seg Neutrophils # Man Lymphocytes # (Manual) D-Dimer ABG pH POC ABG pCO2 POC ABG pO2 ABG pO2 ABG HCO3 ABG O2 Saturation ABG Base Excess ABG Oxyhemoglobin ABG Sodium ABG Chloride ABG Glucose Oxyhemoglobin Carboxyhemoglobin Sodium Potassium Chloride Carbon Dioxide BUN Creatinine Glucose POC Glucose 191 H 173 H 132 H Hemoglobin A1c Magnesium Ferritin AST ALT Alkaline Phosphatase Lactate Dehydrogenase C-Reactive Protein Total Protein Albumin Arterial Blood Glucose Coronavirus (PCR) 07/15/21 07/15/21 07/15/21 04:00 07:59 12:31 WBC MCV MCH MCHC RDW Lymph % (Auto) [place] % (Auto) Eos % (Auto) Lymph # (Auto) [place] # (Auto) Eos # (Auto) Baso # (Auto) Seg Neutrophils % Seg Neuts % (Manual) Lymphocytes % (Manual) Seg Neutrophils # Seg Neutrophils # Man Lymphocytes # (Manual) D-Dimer ABG pH POC ABG pCO2 POC ABG pO2 ABG pO2 ABG HCO3 ABG O2 Saturation ABG Base Excess ABG Oxyhemoglobin ABG Sodium ABG Chloride ABG Glucose Oxyhemoglobin Carboxyhemoglobin Sodium Potassium Chloride 96.0 L Carbon Dioxide 32 H BUN Creatinine 0.3 L Glucose 208 H POC Glucose 117 H 195 H Hemoglobin A1c Magnesium Ferritin AST ALT Alkaline Phosphatase Lactate Dehydrogenase C-Reactive Protein Total Protein Albumin Arterial Blood Glucose Coronavirus (PCR) 07/15/21 07/15/21 07/16/21 18:00 20:57 04:40 WBC MCV MCH MCHC RDW 17.1 H Lymph % (Auto) [place] % (Auto) Eos % (Auto) Lymph # (Auto) [place] # (Auto) Eos # (Auto) Baso # (Auto) Seg Neutrophils % Seg Neuts % (Manual) Lymphocytes % (Manual) Seg Neutrophils # Seg Neutrophils # Man Lymphocytes # (Manual) D-Dimer ABG pH POC ABG pCO2 POC ABG pO2 ABG pO2 ABG HCO3 ABG O2 Saturation ABG Base Excess ABG Oxyhemoglobin ABG Sodium ABG Chloride ABG Glucose Oxyhemoglobin Carboxyhemoglobin Sodium Potassium Chloride Carbon Dioxide BUN Creatinine Glucose POC Glucose 217 H 111 H Hemoglobin A1c Magnesium Ferritin AST ALT Alkaline Phosphatase Lactate Dehydrogenase C-Reactive Protein Total Protein Albumin Arterial Blood Glucose Coronavirus (PCR) 07/16/21 07/16/21 07/16/21 04:40 07:08 11:11 WBC MCV MCH MCHC RDW Lymph % (Auto) [place] % (Auto) Eos % (Auto) Lymph # (Auto) [place] # (Auto) Eos # (Auto) Baso # (Auto) Seg Neutrophils % Seg Neuts % (Manual) Lymphocytes % (Manual) Seg Neutrophils # Seg Neutrophils # Man Lymphocytes # (Manual) D-Dimer ABG pH POC ABG pCO2 POC ABG pO2 ABG pO2 ABG HCO3 ABG O2 Saturation ABG Base Excess ABG Oxyhemoglobin ABG Sodium ABG Chloride ABG Glucose Oxyhemoglobin Carboxyhemoglobin Sodium Potassium 3.4 L Chloride 94.6 L Carbon Dioxide 36 H BUN Creatinine < 0.2 L Glucose 101 H POC Glucose 118 H 184 H Hemoglobin A1c Magnesium Ferritin AST ALT Alkaline Phosphatase Lactate Dehydrogenase C-Reactive Protein Total Protein Albumin Arterial Blood Glucose Coronavirus (PCR) 07/16/21 07/16/21 07/17/21 17:29 22:01 08:10 WBC MCV MCH MCHC RDW Lymph % (Auto) [place] % (Auto) Eos % (Auto) Lymph # (Auto) [place] # (Auto) Eos # (Auto) Baso # (Auto) Seg Neutrophils % Seg Neuts % (Manual) Lymphocytes % (Manual) Seg Neutrophils # Seg Neutrophils # Man Lymphocytes # (Manual) D-Dimer ABG pH POC ABG pCO2 POC ABG pO2 ABG pO2 ABG HCO3 ABG O2 Saturation ABG Base Excess ABG Oxyhemoglobin ABG Sodium ABG Chloride ABG Glucose Oxyhemoglobin Carboxyhemoglobin Sodium Potassium Chloride Carbon Dioxide BUN Creatinine Glucose POC Glucose 200 H 147 H 118 H Hemoglobin A1c Magnesium Ferritin AST ALT Alkaline Phosphatase Lactate Dehydrogenase C-Reactive Protein Total Protein Albumin Arterial Blood Glucose Coronavirus (PCR) 07/17/21 07/17/21 07/17/21 11:38 16:24 21:13 WBC MCV MCH MCHC RDW Lymph % (Auto) [place] % (Auto) Eos % (Auto) Lymph # (Auto) [place] # (Auto) Eos # (Auto) Baso # (Auto) Seg Neutrophils % Seg Neuts % (Manual) Lymphocytes % (Manual) Seg Neutrophils # Seg Neutrophils # Man Lymphocytes # (Manual) D-Dimer ABG pH POC ABG pCO2 POC ABG pO2 ABG pO2 ABG HCO3 ABG O2 Saturation ABG Base Excess ABG Oxyhemoglobin ABG Sodium ABG Chloride ABG Glucose Oxyhemoglobin Carboxyhemoglobin Sodium Potassium Chloride Carbon Dioxide BUN Creatinine Glucose POC Glucose 151 H 268 H 115 H Hemoglobin A1c Magnesium Ferritin AST ALT Alkaline Phosphatase Lactate Dehydrogenase C-Reactive Protein Total Protein Albumin Arterial Blood Glucose Coronavirus (PCR) 07/18/21 07/18/21 07/18/21 07:58 12:29 20:24 WBC MCV MCH MCHC RDW Lymph % (Auto) [place] % (Auto) Eos % (Auto) Lymph # (Auto) [place] # (Auto) Eos # (Auto) Baso # (Auto) Seg Neutrophils % Seg Neuts % (Manual) Lymphocytes % (Manual) Seg Neutrophils # Seg Neutrophils # Man Lymphocytes # (Manual) D-Dimer ABG pH POC ABG pCO2 POC ABG pO2 ABG pO2 ABG HCO3 ABG O2 Saturation ABG Base Excess ABG Oxyhemoglobin ABG Sodium ABG Chloride ABG Glucose Oxyhemoglobin Carboxyhemoglobin Sodium Potassium Chloride Carbon Dioxide BUN Creatinine Glucose POC Glucose 135 H 139 H 130 H Hemoglobin A1c Magnesium Ferritin AST ALT Alkaline Phosphatase Lactate Dehydrogenase C-Reactive Protein Total Protein Albumin Arterial Blood Glucose Coronavirus (PCR) 07/19/21 07/19/21 07/19/21 06:55 06:55 07:54 WBC 14.5 H MCV MCH MCHC RDW 17.3 H Lymph % (Auto) 9.6 L [place] % (Auto) Eos % (Auto) Lymph # (Auto) [place] # (Auto) Eos # (Auto) 0.6 H Baso # (Auto) Seg Neutrophils % 80.3 H Seg Neuts % (Manual) Lymphocytes % (Manual) Seg Neutrophils # 11.7 H Seg Neutrophils # Man Lymphocytes # (Manual) D-Dimer ABG pH POC ABG pCO2 67.9 H POC ABG pO2 131.0 H ABG pO2 ABG HCO3 ABG O2 Saturation ABG Base Excess ABG Oxyhemoglobin ABG Sodium ABG Chloride 97.0 L ABG Glucose 133 H Oxyhemoglobin Carboxyhemoglobin Sodium Potassium Chloride 95.3 L Carbon Dioxide 35 H BUN Creatinine < 0.2 L Glucose 138 H POC Glucose Hemoglobin A1c Magnesium Ferritin AST ALT Alkaline Phosphatase Lactate Dehydrogenase C-Reactive Protein Total Protein Albumin Arterial Blood Glucose 133 H Coronavirus (PCR) 07/19/21 07/19/21 07/19/21 08:10 11:43 17:04 WBC MCV MCH MCHC RDW Lymph % (Auto) [place] % (Auto) Eos % (Auto) Lymph # (Auto) [place] # (Auto) Eos # (Auto) Baso # (Auto) Seg Neutrophils % Seg Neuts % (Manual) Lymphocytes % (Manual) Seg Neutrophils # Seg Neutrophils # Man Lymphocytes # (Manual) D-Dimer ABG pH POC ABG pCO2 POC ABG pO2 ABG pO2 ABG HCO3 ABG O2 Saturation ABG Base Excess ABG Oxyhemoglobin ABG Sodium ABG Chloride ABG Glucose Oxyhemoglobin Carboxyhemoglobin Sodium Potassium Chloride Carbon Dioxide BUN Creatinine Glucose POC Glucose 129 H 126 H 108 H Hemoglobin A1c Magnesium Ferritin AST ALT Alkaline Phosphatase Lactate Dehydrogenase C-Reactive Protein Total Protein Albumin Arterial Blood Glucose Coronavirus (PCR) 07/19/21 07/20/21 07/20/21 21:10 04:00 04:00 WBC MCV MCH MCHC RDW 17.0 H Lymph % (Auto) [place] % (Auto) 8.9 H Eos % (Auto) 6.3 H Lymph # (Auto) [place] # (Auto) 0.9 H Eos # (Auto) 0.6 H Baso # (Auto) Seg Neutrophils % 70.2 H Seg Neuts % (Manual) Lymphocytes % (Manual) Seg Neutrophils # Seg Neutrophils # Man Lymphocytes # (Manual) D-Dimer ABG pH POC ABG pCO2 POC ABG pO2 ABG pO2 ABG HCO3 ABG O2 Saturation ABG Base Excess ABG Oxyhemoglobin ABG Sodium ABG Chloride ABG Glucose Oxyhemoglobin Carboxyhemoglobin Sodium Potassium Chloride 96.7 L Carbon Dioxide 36 H BUN Creatinine 0.2 L Glucose 102 H POC Glucose 109 H Hemoglobin A1c Magnesium Ferritin AST ALT Alkaline Phosphatase Lactate Dehydrogenase C-Reactive Protein Total Protein Albumin 3.2 L Arterial Blood Glucose Coronavirus (PCR) 07/20/21 07/20/21 07/20/21 11:15 15:34 17:01 WBC MCV MCH MCHC RDW Lymph % (Auto) [place] % (Auto) Eos % (Auto) Lymph # (Auto) [place] # (Auto) Eos # (Auto) Baso # (Auto) Seg Neutrophils % Seg Neuts % (Manual) Lymphocytes % (Manual) Seg Neutrophils # Seg Neutrophils # Man Lymphocytes # (Manual) D-Dimer ABG pH POC ABG pCO2 POC ABG pO2 ABG pO2 ABG HCO3 ABG O2 Saturation ABG Base Excess ABG Oxyhemoglobin ABG Sodium ABG Chloride ABG Glucose Oxyhemoglobin Carboxyhemoglobin Sodium Potassium Chloride Carbon Dioxide BUN Creatinine Glucose POC Glucose 109 H 152 H 125 H Hemoglobin A1c Magnesium Ferritin AST ALT Alkaline Phosphatase Lactate Dehydrogenase C-Reactive Protein Total Protein Albumin Arterial Blood Glucose Coronavirus (PCR) 07/20/21 07/21/21 07/21/21 21:00 04:48 04:48 WBC 12.8 H MCV MCH MCHC RDW 16.8 H Lymph % (Auto) 9.3 L [place] % (Auto) Eos % (Auto) Lymph # (Auto) [place] # (Auto) 0.9 H Eos # (Auto) Baso # (Auto) Seg Neutrophils % 81.1 H Seg Neuts % (Manual) Lymphocytes % (Manual) Seg Neutrophils # 10.4 H Seg Neutrophils # Man Lymphocytes # (Manual) D-Dimer ABG pH POC ABG pCO2 POC ABG pO2 ABG pO2 ABG HCO3 ABG O2 Saturation ABG Base Excess ABG Oxyhemoglobin ABG Sodium ABG Chloride ABG Glucose Oxyhemoglobin Carboxyhemoglobin Sodium Potassium Chloride 95.4 L Carbon Dioxide 33 H BUN 6 L Creatinine < 0.2 L Glucose 155 H POC Glucose 211 H Hemoglobin A1c Magnesium 1.60 L Ferritin AST ALT Alkaline Phosphatase Lactate Dehydrogenase C-Reactive Protein Total Protein Albumin Arterial Blood Glucose Coronavirus (PCR) 07/21/21 07/21/21 07/21/21 07:52 11:05 17:01 WBC MCV MCH MCHC RDW Lymph % (Auto) [place] % (Auto) Eos % (Auto) Lymph # (Auto) [place] # (Auto) Eos # (Auto) Baso # (Auto) Seg Neutrophils % Seg Neuts % (Manual) Lymphocytes % (Manual) Seg Neutrophils # Seg Neutrophils # Man Lymphocytes # (Manual) D-Dimer ABG pH POC ABG pCO2 POC ABG pO2 ABG pO2 ABG HCO3 ABG O2 Saturation ABG Base Excess ABG Oxyhemoglobin ABG Sodium ABG Chloride ABG Glucose Oxyhemoglobin Carboxyhemoglobin Sodium Potassium Chloride Carbon Dioxide BUN Creatinine Glucose POC Glucose 116 H 207 H 133 H Hemoglobin A1c Magnesium Ferritin AST ALT Alkaline Phosphatase Lactate Dehydrogenase C-Reactive Protein Total Protein Albumin Arterial Blood Glucose Coronavirus (PCR) 07/21/21 07/22/21 07/22/21 21:17 07:55 07:55 WBC MCV MCH MCHC RDW 16.5 H Lymph % (Auto) [place] % (Auto) 8.6 H Eos % (Auto) Lymph # (Auto) [place] # (Auto) Eos # (Auto) Baso # (Auto) Seg Neutrophils % 72.3 H Seg Neuts % (Manual) Lymphocytes % (Manual) Seg Neutrophils # Seg Neutrophils # Man Lymphocytes # (Manual) D-Dimer ABG pH POC ABG pCO2 POC ABG pO2 ABG pO2 ABG HCO3 ABG O2 Saturation ABG Base Excess ABG Oxyhemoglobin ABG Sodium ABG Chloride ABG Glucose Oxyhemoglobin Carboxyhemoglobin Sodium Potassium Chloride 94.6 L Carbon Dioxide 42 H* D BUN 5 L Creatinine < 0.2 L Glucose POC Glucose 152 H Hemoglobin A1c Magnesium Ferritin AST ALT Alkaline Phosphatase Lactate Dehydrogenase C-Reactive Protein Total Protein Albumin Arterial Blood Glucose Coronavirus (PCR) 07/22/21 07/22/21 07/22/21 11:25 12:05 15:40 WBC MCV MCH MCHC RDW Lymph % (Auto) [place] % (Auto) Eos % (Auto) Lymph # (Auto) [place] # (Auto) Eos # (Auto) Baso # (Auto) Seg Neutrophils % Seg Neuts % (Manual) Lymphocytes % (Manual) Seg Neutrophils # Seg Neutrophils # Man Lymphocytes # (Manual) D-Dimer ABG pH 7.338 L POC ABG pCO2 POC ABG pO2 ABG pO2 66.1 L ABG HCO3 45.0 H ABG O2 Saturation 94.2 L ABG Base Excess 15.2 H ABG Oxyhemoglobin ABG Sodium ABG Chloride ABG Glucose Oxyhemoglobin 91.9 L Carboxyhemoglobin Sodium Potassium Chloride Carbon Dioxide BUN Creatinine Glucose POC Glucose 146 H 219 H Hemoglobin A1c Magnesium Ferritin AST ALT Alkaline Phosphatase Lactate Dehydrogenase C-Reactive Protein Total Protein Albumin Arterial Blood Glucose Coronavirus (PCR) 07/22/21 07/23/21 07/23/21 21:26 04:35 04:35 WBC MCV 98 H MCH MCHC RDW 16.2 H Lymph % (Auto) 7.9 L [place] % (Auto) Eos % (Auto) Lymph # (Auto) 0.9 L [place] # (Auto) Eos # (Auto) Baso # (Auto) Seg Neutrophils % 85.3 H Seg Neuts % (Manual) Lymphocytes % (Manual) Seg Neutrophils # 9.2 H Seg Neutrophils # Man Lymphocytes # (Manual) D-Dimer ABG pH POC ABG pCO2 POC ABG pO2 ABG pO2 ABG HCO3 ABG O2 Saturation ABG Base Excess ABG Oxyhemoglobin ABG Sodium ABG Chloride ABG Glucose Oxyhemoglobin Carboxyhemoglobin Sodium Potassium Chloride 93.9 L Carbon Dioxide 44 H* BUN Creatinine < 0.2 L Glucose 149 H POC Glucose 131 H Hemoglobin A1c Magnesium Ferritin AST ALT Alkaline Phosphatase Lactate Dehydrogenase C-Reactive Protein Total Protein Albumin Arterial Blood Glucose Coronavirus (PCR) 07/23/21 07/23/21 07/23/21 07:20 11:34 16:11 WBC MCV MCH MCHC RDW Lymph % (Auto) [place] % (Auto) Eos % (Auto) Lymph # (Auto) [place] # (Auto) Eos # (Auto) Baso # (Auto) Seg Neutrophils % Seg Neuts % (Manual) Lymphocytes % (Manual) Seg Neutrophils # Seg Neutrophils # Man Lymphocytes # (Manual) D-Dimer ABG pH POC ABG pCO2 POC ABG pO2 ABG pO2 ABG HCO3 ABG O2 Saturation ABG Base Excess ABG Oxyhemoglobin ABG Sodium ABG Chloride ABG Glucose Oxyhemoglobin Carboxyhemoglobin Sodium Potassium Chloride Carbon Dioxide BUN Creatinine Glucose POC Glucose 116 H 172 H 110 H Hemoglobin A1c Magnesium Ferritin AST ALT Alkaline Phosphatase Lactate Dehydrogenase C-Reactive Protein Total Protein Albumin Arterial Blood Glucose Coronavirus (PCR) 07/23/21 07/23/21 07/24/21 18:11 21:33 04:10 WBC MCV MCH MCHC RDW Lymph % (Auto) [place] % (Auto) Eos % (Auto) Lymph # (Auto) [place] # (Auto) Eos # (Auto) Baso # (Auto) Seg Neutrophils % Seg Neuts % (Manual) Lymphocytes % (Manual) Seg Neutrophils # Seg Neutrophils # Man Lymphocytes # (Manual) D-Dimer ABG pH POC ABG pCO2 78.3 H POC ABG pO2 80.7 L ABG pO2 ABG HCO3 ABG O2 Saturation ABG Base Excess ABG Oxyhemoglobin ABG Sodium 134.9 L ABG Chloride 89.0 L ABG Glucose 200 H Oxyhemoglobin Carboxyhemoglobin Sodium Potassium 3.5 L D Chloride 92.4 L Carbon Dioxide 42 H* BUN Creatinine < 0.2 L Glucose 123 H POC Glucose 108 H Hemoglobin A1c Magnesium Ferritin AST ALT Alkaline Phosphatase Lactate Dehydrogenase C-Reactive Protein Total Protein Albumin Arterial Blood Glucose 200 H Coronavirus (PCR) 07/24/21 07/24/21 07/24/21 11:01 16:56 22:06 WBC MCV MCH MCHC RDW Lymph % (Auto) [place] % (Auto) Eos % (Auto) Lymph # (Auto) [place] # (Auto) Eos # (Auto) Baso # (Auto) Seg Neutrophils % Seg Neuts % (Manual) Lymphocytes % (Manual) Seg Neutrophils # Seg Neutrophils # Man Lymphocytes # (Manual) D-Dimer ABG pH POC ABG pCO2 POC ABG pO2 ABG pO2 ABG HCO3 ABG O2 Saturation ABG Base Excess ABG Oxyhemoglobin ABG Sodium ABG Chloride ABG Glucose Oxyhemoglobin Carboxyhemoglobin Sodium Potassium Chloride Carbon Dioxide BUN Creatinine Glucose POC Glucose 171 H 111 H 136 H Hemoglobin A1c Magnesium Ferritin AST ALT Alkaline Phosphatase Lactate Dehydrogenase C-Reactive Protein Total Protein Albumin Arterial Blood Glucose Coronavirus (PCR) 07/25/21 07/25/21 07/25/21 07:40 10:59 11:58 WBC MCV MCH MCHC RDW Lymph % (Auto) [place] % (Auto) Eos % (Auto) Lymph # (Auto) [place] # (Auto) Eos # (Auto) Baso # (Auto) Seg Neutrophils % Seg Neuts % (Manual) Lymphocytes % (Manual) Seg Neutrophils # Seg Neutrophils # Man Lymphocytes # (Manual) D-Dimer ABG pH POC ABG pCO2 POC ABG pO2 ABG pO2 ABG HCO3 ABG O2 Saturation ABG Base Excess ABG Oxyhemoglobin ABG Sodium ABG Chloride ABG Glucose Oxyhemoglobin Carboxyhemoglobin Sodium Potassium Chloride 88.6 L Carbon Dioxide 43 H* BUN Creatinine 0.2 L Glucose 180 H POC Glucose 120 H 153 H Hemoglobin A1c Magnesium Ferritin AST ALT Alkaline Phosphatase Lactate Dehydrogenase C-Reactive Protein Total Protein Albumin Arterial Blood Glucose Coronavirus (PCR) 07/25/21 07/25/21 07/26/21 16:03 20:18 09:56 WBC MCV MCH MCHC RDW Lymph % (Auto) [place] % (Auto) Eos % (Auto) Lymph # (Auto) [place] # (Auto) Eos # (Auto) Baso # (Auto) Seg Neutrophils % Seg Neuts % (Manual) Lymphocytes % (Manual) Seg Neutrophils # Seg Neutrophils # Man Lymphocytes # (Manual) D-Dimer ABG pH POC ABG pCO2 POC ABG pO2 ABG pO2 ABG HCO3 ABG O2 Saturation ABG Base Excess ABG Oxyhemoglobin ABG Sodium ABG Chloride ABG Glucose Oxyhemoglobin Carboxyhemoglobin Sodium Potassium Chloride 91.3 L Carbon Dioxide 45 H* BUN Creatinine < 0.2 L Glucose 128 H POC Glucose 143 H 133 H Hemoglobin A1c Magnesium Ferritin AST ALT Alkaline Phosphatase Lactate Dehydrogenase C-Reactive Protein Total Protein Albumin 3.2 L Arterial Blood Glucose Coronavirus (PCR) 07/26/21 07/26/21 07/27/21 17:56 21:24 07:10 WBC MCV MCH MCHC RDW Lymph % (Auto) [place] % (Auto) Eos % (Auto) Lymph # (Auto) [place] # (Auto) Eos # (Auto) Baso # (Auto) Seg Neutrophils % Seg Neuts % (Manual) Lymphocytes % (Manual) Seg Neutrophils # Seg Neutrophils # Man Lymphocytes # (Manual) D-Dimer ABG pH POC ABG pCO2 POC ABG pO2 ABG pO2 ABG HCO3 ABG O2 Saturation ABG Base Excess ABG Oxyhemoglobin ABG Sodium ABG Chloride ABG Glucose Oxyhemoglobin Carboxyhemoglobin Sodium Potassium Chloride Carbon Dioxide BUN Creatinine Glucose POC Glucose 170 H 122 H 119 H Hemoglobin A1c Magnesium Ferritin AST ALT Alkaline Phosphatase Lactate Dehydrogenase C-Reactive Protein Total Protein Albumin Arterial Blood Glucose Coronavirus (PCR) 07/27/21 07/27/21 07/28/21 11:44 21:31 07:30 WBC MCV MCH MCHC RDW Lymph % (Auto) [place] % (Auto) Eos % (Auto) Lymph # (Auto) [place] # (Auto) Eos # (Auto) Baso # (Auto) Seg Neutrophils % Seg Neuts % (Manual) Lymphocytes % (Manual) Seg Neutrophils # Seg Neutrophils # Man Lymphocytes # (Manual) D-Dimer ABG pH POC ABG pCO2 POC ABG pO2 ABG pO2 ABG HCO3 ABG O2 Saturation ABG Base Excess ABG Oxyhemoglobin ABG Sodium ABG Chloride ABG Glucose Oxyhemoglobin Carboxyhemoglobin Sodium Potassium 3.4 L D Chloride 91.4 L Carbon Dioxide 39 H BUN Creatinine < 0.2 L Glucose 140 H POC Glucose 176 H 162 H Hemoglobin A1c Magnesium Ferritin AST ALT Alkaline Phosphatase Lactate Dehydrogenase C-Reactive Protein Total Protein Albumin Arterial Blood Glucose Coronavirus (PCR) 07/28/21 07/28/21 07/28/21 08:43 12:25 16:40 WBC MCV MCH MCHC RDW Lymph % (Auto) [place] % (Auto) Eos % (Auto) Lymph # (Auto) [place] # (Auto) Eos # (Auto) Baso # (Auto) Seg Neutrophils % Seg Neuts % (Manual) Lymphocytes % (Manual) Seg Neutrophils # Seg Neutrophils # Man Lymphocytes # (Manual) D-Dimer ABG pH POC ABG pCO2 POC ABG pO2 ABG pO2 ABG HCO3 ABG O2 Saturation ABG Base Excess ABG Oxyhemoglobin ABG Sodium ABG Chloride ABG Glucose Oxyhemoglobin Carboxyhemoglobin Sodium Potassium Chloride Carbon Dioxide BUN Creatinine Glucose POC Glucose 122 H 162 H 234 H Hemoglobin A1c Magnesium Ferritin AST ALT Alkaline Phosphatase Lactate Dehydrogenase C-Reactive Protein Total Protein Albumin Arterial Blood Glucose Coronavirus (PCR) 07/28/21 07/29/21 07/29/21 21:27 04:40 09:51 WBC MCV MCH MCHC RDW Lymph % (Auto) [place] % (Auto) Eos % (Auto) Lymph # (Auto) [place] # (Auto) Eos # (Auto) Baso # (Auto) Seg Neutrophils % Seg Neuts % (Manual) Lymphocytes % (Manual) Seg Neutrophils # Seg Neutrophils # Man Lymphocytes # (Manual) D-Dimer ABG pH POC ABG pCO2 POC ABG pO2 ABG pO2 ABG HCO3 ABG O2 Saturation ABG Base Excess ABG Oxyhemoglobin ABG Sodium ABG Chloride ABG Glucose Oxyhemoglobin Carboxyhemoglobin Sodium Potassium 3.4 L Chloride 92.3 L Carbon Dioxide 40 H BUN Creatinine < 0.2 L Glucose 125 H POC Glucose 155 H 112 H Hemoglobin A1c Magnesium Ferritin AST ALT Alkaline Phosphatase Lactate Dehydrogenase C-Reactive Protein Total Protein Albumin Arterial Blood Glucose Coronavirus (PCR) 07/29/21 07/29/21 07/29/21 12:03 16:39 21:28 WBC MCV MCH MCHC RDW Lymph % (Auto) [place] % (Auto) Eos % (Auto) Lymph # (Auto) [place] # (Auto) Eos # (Auto) Baso # (Auto) Seg Neutrophils % Seg Neuts % (Manual) Lymphocytes % (Manual) Seg Neutrophils # Seg Neutrophils # Man Lymphocytes # (Manual) D-Dimer ABG pH POC ABG pCO2 POC ABG pO2 ABG pO2 ABG HCO3 ABG O2 Saturation ABG Base Excess ABG Oxyhemoglobin ABG Sodium ABG Chloride ABG Glucose Oxyhemoglobin Carboxyhemoglobin Sodium Potassium Chloride Carbon Dioxide BUN Creatinine Glucose POC Glucose 188 H 141 H 130 H Hemoglobin A1c Magnesium Ferritin AST ALT Alkaline Phosphatase Lactate Dehydrogenase C-Reactive Protein Total Protein Albumin Arterial Blood Glucose Coronavirus (PCR) 07/30/21 07/30/21 07/30/21 08:37 11:56 22:25 WBC MCV MCH MCHC RDW Lymph % (Auto) [place] % (Auto) Eos % (Auto) Lymph # (Auto) [place] # (Auto) Eos # (Auto) Baso # (Auto) Seg Neutrophils % Seg Neuts % (Manual) Lymphocytes % (Manual) Seg Neutrophils # Seg Neutrophils # Man Lymphocytes # (Manual) D-Dimer ABG pH POC ABG pCO2 POC ABG pO2 ABG pO2 ABG HCO3 ABG O2 Saturation ABG Base Excess ABG Oxyhemoglobin ABG Sodium ABG Chloride ABG Glucose Oxyhemoglobin Carboxyhemoglobin Sodium Potassium Chloride Carbon Dioxide BUN Creatinine Glucose POC Glucose 133 H 156 H 118 H Hemoglobin A1c Magnesium Ferritin AST ALT Alkaline Phosphatase Lactate Dehydrogenase C-Reactive Protein Total Protein Albumin Arterial Blood Glucose Coronavirus (PCR) 07/31/21 07/31/21 07/31/21 06:43 11:55 16:39 WBC MCV MCH MCHC RDW Lymph % (Auto) [place] % (Auto) Eos % (Auto) Lymph # (Auto) [place] # (Auto) Eos # (Auto) Baso # (Auto) Seg Neutrophils % Seg Neuts % (Manual) Lymphocytes % (Manual) Seg Neutrophils # Seg Neutrophils # Man Lymphocytes # (Manual) D-Dimer ABG pH POC ABG pCO2 POC ABG pO2 ABG pO2 ABG HCO3 ABG O2 Saturation ABG Base Excess ABG Oxyhemoglobin ABG Sodium ABG Chloride ABG Glucose Oxyhemoglobin Carboxyhemoglobin Sodium Potassium Chloride Carbon Dioxide BUN Creatinine Glucose POC Glucose 115 H 114 H 185 H Hemoglobin A1c Magnesium Ferritin AST ALT Alkaline Phosphatase Lactate Dehydrogenase C-Reactive Protein Total Protein Albumin Arterial Blood Glucose Coronavirus (PCR) 07/31/21 08/01/21 08/01/21 23:22 11:35 15:34 WBC MCV MCH MCHC RDW Lymph % (Auto) [place] % (Auto) Eos % (Auto) Lymph # (Auto) [place] # (Auto) Eos # (Auto) Baso # (Auto) Seg Neutrophils % Seg Neuts % (Manual) Lymphocytes % (Manual) Seg Neutrophils # Seg Neutrophils # Man Lymphocytes # (Manual) D-Dimer ABG pH POC ABG pCO2 POC ABG pO2 ABG pO2 ABG HCO3 ABG O2 Saturation ABG Base Excess ABG Oxyhemoglobin ABG Sodium ABG Chloride ABG Glucose Oxyhemoglobin Carboxyhemoglobin Sodium Potassium Chloride Carbon Dioxide BUN Creatinine Glucose POC Glucose 213 H 122 H 142 H Hemoglobin A1c Magnesium Ferritin AST ALT Alkaline Phosphatase Lactate Dehydrogenase C-Reactive Protein Total Protein Albumin Arterial Blood Glucose Coronavirus (PCR) 08/01/21 08/02/21 08/02/21 22:15 07:41 11:58 WBC MCV MCH MCHC RDW Lymph % (Auto) [place] % (Auto) Eos % (Auto) Lymph # (Auto) [place] # (Auto) Eos # (Auto) Baso # (Auto) Seg Neutrophils % Seg Neuts % (Manual) Lymphocytes % (Manual) Seg Neutrophils # Seg Neutrophils # Man Lymphocytes # (Manual) D-Dimer ABG pH POC ABG pCO2 POC ABG pO2 ABG pO2 ABG HCO3 ABG O2 Saturation ABG Base Excess ABG Oxyhemoglobin ABG Sodium ABG Chloride ABG Glucose Oxyhemoglobin Carboxyhemoglobin Sodium Potassium Chloride Carbon Dioxide BUN Creatinine Glucose POC Glucose 121 H 109 H 136 H Hemoglobin A1c Magnesium Ferritin AST ALT Alkaline Phosphatase Lactate Dehydrogenase C-Reactive Protein Total Protein Albumin Arterial Blood Glucose Coronavirus (PCR) 08/02/21 08/03/21 08/03/21 21:19 07:47 11:18 WBC MCV MCH MCHC RDW Lymph % (Auto) [place] % (Auto) Eos % (Auto) Lymph # (Auto) [place] # (Auto) Eos # (Auto) Baso # (Auto) Seg Neutrophils % Seg Neuts % (Manual) Lymphocytes % (Manual) Seg Neutrophils # Seg Neutrophils # Man Lymphocytes # (Manual) D-Dimer ABG pH POC ABG pCO2 POC ABG pO2 ABG pO2 ABG HCO3 ABG O2 Saturation ABG Base Excess ABG Oxyhemoglobin ABG Sodium ABG Chloride ABG Glucose Oxyhemoglobin Carboxyhemoglobin Sodium Potassium Chloride Carbon Dioxide BUN Creatinine Glucose POC Glucose 159 H 111 H 202 H Hemoglobin A1c Magnesium Ferritin AST ALT Alkaline Phosphatase Lactate Dehydrogenase C-Reactive Protein Total Protein Albumin Arterial Blood Glucose Coronavirus (PCR) 08/03/21 08/03/21 08/04/21 16:47 21:26 07:57 WBC MCV MCH MCHC RDW Lymph % (Auto) [place] % (Auto) Eos % (Auto) Lymph # (Auto) [place] # (Auto) Eos # (Auto) Baso # (Auto) Seg Neutrophils % Seg Neuts % (Manual) Lymphocytes % (Manual) Seg Neutrophils # Seg Neutrophils # Man Lymphocytes # (Manual) D-Dimer ABG pH POC ABG pCO2 POC ABG pO2 ABG pO2 ABG HCO3 ABG O2 Saturation ABG Base Excess ABG Oxyhemoglobin ABG Sodium ABG Chloride ABG Glucose Oxyhemoglobin Carboxyhemoglobin Sodium Potassium Chloride Carbon Dioxide BUN Creatinine Glucose POC Glucose 133 H 148 H 129 H Hemoglobin A1c Magnesium Ferritin AST ALT Alkaline Phosphatase Lactate Dehydrogenase C-Reactive Protein Total Protein Albumin Arterial Blood Glucose Coronavirus (PCR) 08/04/21 08/04/21 08/04/21 08:05 11:42 16:53 WBC MCV MCH MCHC RDW Lymph % (Auto) [place] % (Auto) Eos % (Auto) Lymph # (Auto) [place] # (Auto) Eos # (Auto) Baso # (Auto) Seg Neutrophils % Seg Neuts % (Manual) Lymphocytes % (Manual) Seg Neutrophils # Seg Neutrophils # Man Lymphocytes # (Manual) D-Dimer ABG pH POC ABG pCO2 POC ABG pO2 ABG pO2 ABG HCO3 ABG O2 Saturation ABG Base Excess ABG Oxyhemoglobin ABG Sodium ABG Chloride ABG Glucose Oxyhemoglobin Carboxyhemoglobin Sodium Potassium Chloride Carbon Dioxide BUN Creatinine Glucose POC Glucose 145 H 187 H 112 H Hemoglobin A1c Magnesium Ferritin AST ALT Alkaline Phosphatase Lactate Dehydrogenase C-Reactive Protein Total Protein Albumin Arterial Blood Glucose Coronavirus (PCR) 08/04/21 08/05/21 08/05/21 21:27 07:35 11:19 WBC MCV MCH MCHC RDW Lymph % (Auto) [place] % (Auto) Eos % (Auto) Lymph # (Auto) [place] # (Auto) Eos # (Auto) Baso # (Auto) Seg Neutrophils % Seg Neuts % (Manual) Lymphocytes % (Manual) Seg Neutrophils # Seg Neutrophils # Man Lymphocytes # (Manual) D-Dimer ABG pH POC ABG pCO2 POC ABG pO2 ABG pO2 ABG HCO3 ABG O2 Saturation ABG Base Excess ABG Oxyhemoglobin ABG Sodium ABG Chloride ABG Glucose Oxyhemoglobin Carboxyhemoglobin Sodium Potassium Chloride Carbon Dioxide BUN Creatinine Glucose POC Glucose 189 H 146 H 244 H Hemoglobin A1c Magnesium Ferritin AST ALT Alkaline Phosphatase Lactate Dehydrogenase C-Reactive Protein Total Protein Albumin Arterial Blood Glucose Coronavirus (PCR) 08/05/21 08/06/21 08/06/21 22:16 07:29 11:16 WBC MCV MCH MCHC RDW Lymph % (Auto) [place] % (Auto) Eos % (Auto) Lymph # (Auto) [place] # (Auto) Eos # (Auto) Baso # (Auto) Seg Neutrophils % Seg Neuts % (Manual) Lymphocytes % (Manual) Seg Neutrophils # Seg Neutrophils # Man Lymphocytes # (Manual) D-Dimer ABG pH POC ABG pCO2 POC ABG pO2 ABG pO2 ABG HCO3 ABG O2 Saturation ABG Base Excess ABG Oxyhemoglobin ABG Sodium ABG Chloride ABG Glucose Oxyhemoglobin Carboxyhemoglobin Sodium Potassium Chloride Carbon Dioxide BUN Creatinine Glucose POC Glucose 122 H 128 H 228 H Hemoglobin A1c Magnesium Ferritin AST ALT Alkaline Phosphatase Lactate Dehydrogenase C-Reactive Protein Total Protein Albumin Arterial Blood Glucose Coronavirus (PCR) 08/06/21 08/07/21 08/07/21 21:13 07:17 11:54 WBC MCV MCH MCHC RDW Lymph % (Auto) [place] % (Auto) Eos % (Auto) Lymph # (Auto) [place] # (Auto) Eos # (Auto) Baso # (Auto) Seg Neutrophils % Seg Neuts % (Manual) Lymphocytes % (Manual) Seg Neutrophils # Seg Neutrophils # Man Lymphocytes # (Manual) D-Dimer ABG pH POC ABG pCO2 POC ABG pO2 ABG pO2 ABG HCO3 ABG O2 Saturation ABG Base Excess ABG Oxyhemoglobin ABG Sodium ABG Chloride ABG Glucose Oxyhemoglobin Carboxyhemoglobin Sodium Potassium Chloride Carbon Dioxide BUN Creatinine Glucose POC Glucose 198 H 134 H 107 H Hemoglobin A1c Magnesium Ferritin AST ALT Alkaline Phosphatase Lactate Dehydrogenase C-Reactive Protein Total Protein Albumin Arterial Blood Glucose Coronavirus (PCR) 08/07/21 08/07/21 08/08/21 16:26 21:15 04:51 WBC MCV MCH MCHC RDW Lymph % (Auto) [place] % (Auto) Eos % (Auto) Lymph # (Auto) [place] # (Auto) Eos # (Auto) Baso # (Auto) Seg Neutrophils % Seg Neuts % (Manual) Lymphocytes % (Manual) Seg Neutrophils # Seg Neutrophils # Man Lymphocytes # (Manual) D-Dimer ABG pH POC ABG pCO2 POC ABG pO2 ABG pO2 ABG HCO3 ABG O2 Saturation ABG Base Excess ABG Oxyhemoglobin ABG Sodium ABG Chloride ABG Glucose Oxyhemoglobin Carboxyhemoglobin Sodium Potassium Chloride 92.9 L Carbon Dioxide 39 H BUN Creatinine < 0.2 L Glucose 105 H POC Glucose 144 H 228 H Hemoglobin A1c Magnesium Ferritin AST ALT Alkaline Phosphatase Lactate Dehydrogenase C-Reactive Protein Total Protein Albumin Arterial Blood Glucose Coronavirus (PCR) 08/08/21 08/08/21 08/08/21 11:40 17:09 21:22 WBC MCV MCH MCHC RDW Lymph % (Auto) [place] % (Auto) Eos % (Auto) Lymph # (Auto) [place] # (Auto) Eos # (Auto) Baso # (Auto) Seg Neutrophils % Seg Neuts % (Manual) Lymphocytes % (Manual) Seg Neutrophils # Seg Neutrophils # Man Lymphocytes # (Manual) D-Dimer ABG pH POC ABG pCO2 POC ABG pO2 ABG pO2 ABG HCO3 ABG O2 Saturation ABG Base Excess ABG Oxyhemoglobin ABG Sodium ABG Chloride ABG Glucose Oxyhemoglobin Carboxyhemoglobin Sodium Potassium Chloride Carbon Dioxide BUN Creatinine Glucose POC Glucose 137 H 137 H 152 H Hemoglobin A1c Magnesium Ferritin AST ALT Alkaline Phosphatase Lactate Dehydrogenase C-Reactive Protein Total Protein Albumin Arterial Blood Glucose Coronavirus (PCR) 08/09/21 08/09/21 08/09/21 07:42 12:26 16:41 WBC MCV MCH MCHC RDW Lymph % (Auto) [place] % (Auto) Eos % (Auto) Lymph # (Auto) [place] # (Auto) Eos # (Auto) Baso # (Auto) Seg Neutrophils % Seg Neuts % (Manual) Lymphocytes % (Manual) Seg Neutrophils # Seg Neutrophils # Man Lymphocytes # (Manual) D-Dimer ABG pH POC ABG pCO2 POC ABG pO2 ABG pO2 ABG HCO3 ABG O2 Saturation ABG Base Excess ABG Oxyhemoglobin ABG Sodium ABG Chloride ABG Glucose Oxyhemoglobin Carboxyhemoglobin Sodium Potassium Chloride Carbon Dioxide BUN Creatinine Glucose POC Glucose 120 H 132 H 116 H Hemoglobin A1c Magnesium Ferritin AST ALT Alkaline Phosphatase Lactate Dehydrogenase C-Reactive Protein Total Protein Albumin Arterial Blood Glucose Coronavirus (PCR) 08/09/21 08/10/21 08/10/21 21:13 07:41 11:33 WBC MCV MCH MCHC RDW Lymph % (Auto) [place] % (Auto) Eos % (Auto) Lymph # (Auto) [place] # (Auto) Eos # (Auto) Baso # (Auto) Seg Neutrophils % Seg Neuts % (Manual) Lymphocytes % (Manual) Seg Neutrophils # Seg Neutrophils # Man Lymphocytes # (Manual) D-Dimer ABG pH POC ABG pCO2 POC ABG pO2 ABG pO2 ABG HCO3 ABG O2 Saturation ABG Base Excess ABG Oxyhemoglobin ABG Sodium ABG Chloride ABG Glucose Oxyhemoglobin Carboxyhemoglobin Sodium Potassium Chloride Carbon Dioxide BUN Creatinine Glucose POC Glucose 205 H 125 H 125 H Hemoglobin A1c Magnesium Ferritin AST ALT Alkaline Phosphatase Lactate Dehydrogenase C-Reactive Protein Total Protein Albumin Arterial Blood Glucose Coronavirus (PCR) 08/10/21 08/10/21 08/11/21 15:21 21:07 07:22 WBC MCV MCH MCHC RDW Lymph % (Auto) [place] % (Auto) Eos % (Auto) Lymph # (Auto) [place] # (Auto) Eos # (Auto) Baso # (Auto) Seg Neutrophils % Seg Neuts % (Manual) Lymphocytes % (Manual) Seg Neutrophils # Seg Neutrophils # Man Lymphocytes # (Manual) D-Dimer ABG pH POC ABG pCO2 POC ABG pO2 ABG pO2 ABG HCO3 ABG O2 Saturation ABG Base Excess ABG Oxyhemoglobin ABG Sodium ABG Chloride ABG Glucose Oxyhemoglobin Carboxyhemoglobin Sodium Potassium Chloride Carbon Dioxide BUN Creatinine Glucose POC Glucose 188 H 177 H 123 H Hemoglobin A1c Magnesium Ferritin AST ALT Alkaline Phosphatase Lactate Dehydrogenase C-Reactive Protein Total Protein Albumin Arterial Blood Glucose Coronavirus (PCR) 08/11/21 08/11/21 08/11/21 11:42 15:43 21:34 WBC MCV MCH MCHC RDW Lymph % (Auto) [place] % (Auto) Eos % (Auto) Lymph # (Auto) [place] # (Auto) Eos # (Auto) Baso # (Auto) Seg Neutrophils % Seg Neuts % (Manual) Lymphocytes % (Manual) Seg Neutrophils # Seg Neutrophils # Man Lymphocytes # (Manual) D-Dimer ABG pH POC ABG pCO2 POC ABG pO2 ABG pO2 ABG HCO3 ABG O2 Saturation ABG Base Excess ABG Oxyhemoglobin ABG Sodium ABG Chloride ABG Glucose Oxyhemoglobin Carboxyhemoglobin Sodium Potassium Chloride Carbon Dioxide BUN Creatinine Glucose POC Glucose 182 H 182 H 112 H Hemoglobin A1c Magnesium Ferritin AST ALT Alkaline Phosphatase Lactate Dehydrogenase C-Reactive Protein Total Protein Albumin Arterial Blood Glucose Coronavirus (PCR) 08/12/21 08/12/21 08/12/21 07:49 12:03 17:06 WBC MCV MCH MCHC RDW Lymph % (Auto) [place] % (Auto) Eos % (Auto) Lymph # (Auto) [place] # (Auto) Eos # (Auto) Baso # (Auto) Seg Neutrophils % Seg Neuts % (Manual) Lymphocytes % (Manual) Seg Neutrophils # Seg Neutrophils # Man Lymphocytes # (Manual) D-Dimer ABG pH POC ABG pCO2 POC ABG pO2 ABG pO2 ABG HCO3 ABG O2 Saturation ABG Base Excess ABG Oxyhemoglobin ABG Sodium ABG Chloride ABG Glucose Oxyhemoglobin Carboxyhemoglobin Sodium Potassium Chloride Carbon Dioxide BUN Creatinine Glucose POC Glucose 151 H 154 H 106 H Hemoglobin A1c Magnesium Ferritin AST ALT Alkaline Phosphatase Lactate Dehydrogenase C-Reactive Protein Total Protein Albumin Arterial Blood Glucose Coronavirus (PCR) 08/12/21 08/13/21 08/13/21 21:50 07:31 11:27 WBC MCV MCH MCHC RDW Lymph % (Auto) [place] % (Auto) Eos % (Auto) Lymph # (Auto) [place] # (Auto) Eos # (Auto) Baso # (Auto) Seg Neutrophils % Seg Neuts % (Manual) Lymphocytes % (Manual) Seg Neutrophils # Seg Neutrophils # Man Lymphocytes # (Manual) D-Dimer ABG pH POC ABG pCO2 POC ABG pO2 ABG pO2 ABG HCO3 ABG O2 Saturation ABG Base Excess ABG Oxyhemoglobin ABG Sodium ABG Chloride ABG Glucose Oxyhemoglobin Carboxyhemoglobin Sodium Potassium Chloride Carbon Dioxide BUN Creatinine Glucose POC Glucose 160 H 118 H 177 H Hemoglobin A1c Magnesium Ferritin AST ALT Alkaline Phosphatase Lactate Dehydrogenase C-Reactive Protein Total Protein Albumin Arterial Blood Glucose Coronavirus (PCR) 08/13/21 08/13/21 08/14/21 16:21 20:59 07:16 WBC MCV MCH MCHC RDW Lymph % (Auto) [place] % (Auto) Eos % (Auto) Lymph # (Auto) [place] # (Auto) Eos # (Auto) Baso # (Auto) Seg Neutrophils % Seg Neuts % (Manual) Lymphocytes % (Manual) Seg Neutrophils # Seg Neutrophils # Man Lymphocytes # (Manual) D-Dimer ABG pH POC ABG pCO2 POC ABG pO2 ABG pO2 ABG HCO3 ABG O2 Saturation ABG Base Excess ABG Oxyhemoglobin ABG Sodium ABG Chloride ABG Glucose Oxyhemoglobin Carboxyhemoglobin Sodium Potassium Chloride Carbon Dioxide BUN Creatinine Glucose POC Glucose 116 H 140 H 109 H Hemoglobin A1c Magnesium Ferritin AST ALT Alkaline Phosphatase Lactate Dehydrogenase C-Reactive Protein Total Protein Albumin Arterial Blood Glucose Coronavirus (PCR) 08/14/21 08/14/21 08/14/21 11:13 16:30 21:11 WBC MCV MCH MCHC RDW Lymph % (Auto) [place] % (Auto) Eos % (Auto) Lymph # (Auto) [place] # (Auto) Eos # (Auto) Baso # (Auto) Seg Neutrophils % Seg Neuts % (Manual) Lymphocytes % (Manual) Seg Neutrophils # Seg Neutrophils # Man Lymphocytes # (Manual) D-Dimer ABG pH POC ABG pCO2 POC ABG pO2 ABG pO2 ABG HCO3 ABG O2 Saturation ABG Base Excess ABG Oxyhemoglobin ABG Sodium ABG Chloride ABG Glucose Oxyhemoglobin Carboxyhemoglobin Sodium Potassium Chloride Carbon Dioxide BUN Creatinine Glucose POC Glucose 176 H 117 H 222 H Hemoglobin A1c Magnesium Ferritin AST ALT Alkaline Phosphatase Lactate Dehydrogenase C-Reactive Protein Total Protein Albumin Arterial Blood Glucose Coronavirus (PCR) 08/15/21 08/15/21 08/15/21 07:10 11:11 16:25 WBC MCV MCH MCHC RDW Lymph % (Auto) [place] % (Auto) Eos % (Auto) Lymph # (Auto) [place] # (Auto) Eos # (Auto) Baso # (Auto) Seg Neutrophils % Seg Neuts % (Manual) Lymphocytes % (Manual) Seg Neutrophils # Seg Neutrophils # Man Lymphocytes # (Manual) D-Dimer ABG pH POC ABG pCO2 POC ABG pO2 ABG pO2 ABG HCO3 ABG O2 Saturation ABG Base Excess ABG Oxyhemoglobin ABG Sodium ABG Chloride ABG Glucose Oxyhemoglobin Carboxyhemoglobin Sodium Potassium Chloride Carbon Dioxide BUN Creatinine Glucose POC Glucose 165 H 225 H 157 H Hemoglobin A1c Magnesium Ferritin AST ALT Alkaline Phosphatase Lactate Dehydrogenase C-Reactive Protein Total Protein Albumin Arterial Blood Glucose Coronavirus (PCR) 08/16/21 08/16/21 08/16/21 07:29 11:14 21:03 WBC MCV MCH MCHC RDW Lymph % (Auto) [place] % (Auto) Eos % (Auto) Lymph # (Auto) [place] # (Auto) Eos # (Auto) Baso # (Auto) Seg Neutrophils % Seg Neuts % (Manual) Lymphocytes % (Manual) Seg Neutrophils # Seg Neutrophils # Man Lymphocytes # (Manual) D-Dimer ABG pH POC ABG pCO2 POC ABG pO2 ABG pO2 ABG HCO3 ABG O2 Saturation ABG Base Excess ABG Oxyhemoglobin ABG Sodium ABG Chloride ABG Glucose Oxyhemoglobin Carboxyhemoglobin Sodium Potassium Chloride Carbon Dioxide BUN Creatinine Glucose POC Glucose 177 H 254 H 291 H Hemoglobin A1c Magnesium Ferritin AST ALT Alkaline Phosphatase Lactate Dehydrogenase C-Reactive Protein Total Protein Albumin Arterial Blood Glucose Coronavirus (PCR) 08/17/21 08/17/21 08/17/21 07:50 12:18 17:35 WBC MCV MCH MCHC RDW Lymph % (Auto) [place] % (Auto) Eos % (Auto) Lymph # (Auto) [place] # (Auto) Eos # (Auto) Baso # (Auto) Seg Neutrophils % Seg Neuts % (Manual) Lymphocytes % (Manual) Seg Neutrophils # Seg Neutrophils # Man Lymphocytes # (Manual) D-Dimer ABG pH POC ABG pCO2 POC ABG pO2 ABG pO2 ABG HCO3 ABG O2 Saturation ABG Base Excess ABG Oxyhemoglobin ABG Sodium ABG Chloride ABG Glucose Oxyhemoglobin Carboxyhemoglobin Sodium Potassium Chloride Carbon Dioxide BUN Creatinine Glucose POC Glucose 171 H 236 H 273 H Hemoglobin A1c Magnesium Ferritin AST ALT Alkaline Phosphatase Lactate Dehydrogenase C-Reactive Protein Total Protein Albumin Arterial Blood Glucose Coronavirus (PCR) 08/17/21 08/18/21 08/18/21 21:36 07:27 11:29 WBC MCV MCH MCHC RDW Lymph % (Auto) [place] % (Auto) Eos % (Auto) Lymph # (Auto) [place] # (Auto) Eos # (Auto) Baso # (Auto) Seg Neutrophils % Seg Neuts % (Manual) Lymphocytes % (Manual) Seg Neutrophils # Seg Neutrophils # Man Lymphocytes # (Manual) D-Dimer ABG pH POC ABG pCO2 POC ABG pO2 ABG pO2 ABG HCO3 ABG O2 Saturation ABG Base Excess ABG Oxyhemoglobin ABG Sodium ABG Chloride ABG Glucose Oxyhemoglobin Carboxyhemoglobin Sodium Potassium Chloride Carbon Dioxide BUN Creatinine Glucose POC Glucose 181 H 179 H 210 H Hemoglobin A1c Magnesium Ferritin AST ALT Alkaline Phosphatase Lactate Dehydrogenase C-Reactive Protein Total Protein Albumin Arterial Blood Glucose Coronavirus (PCR) 08/18/21 08/18/21 08/19/21 17:03 21:14 07:17 WBC MCV MCH MCHC RDW Lymph % (Auto) [place] % (Auto) Eos % (Auto) Lymph # (Auto) [place] # (Auto) Eos # (Auto) Baso # (Auto) Seg Neutrophils % Seg Neuts % (Manual) Lymphocytes % (Manual) Seg Neutrophils # Seg Neutrophils # Man Lymphocytes # (Manual) D-Dimer ABG pH POC ABG pCO2 POC ABG pO2 ABG pO2 ABG HCO3 ABG O2 Saturation ABG Base Excess ABG Oxyhemoglobin ABG Sodium ABG Chloride ABG Glucose Oxyhemoglobin Carboxyhemoglobin Sodium Potassium Chloride Carbon Dioxide BUN Creatinine Glucose POC Glucose 255 H 212 H 193 H Hemoglobin A1c Magnesium Ferritin AST ALT Alkaline Phosphatase Lactate Dehydrogenase C-Reactive Protein Total Protein Albumin Arterial Blood Glucose Coronavirus (PCR) 08/19/21 08/19/21 08/19/21 11:23 16:20 21:39 WBC MCV MCH MCHC RDW Lymph % (Auto) [place] % (Auto) Eos % (Auto) Lymph # (Auto) [place] # (Auto) Eos # (Auto) Baso # (Auto) Seg Neutrophils % Seg Neuts % (Manual) Lymphocytes % (Manual) Seg Neutrophils # Seg Neutrophils # Man Lymphocytes # (Manual) D-Dimer ABG pH POC ABG pCO2 POC ABG pO2 ABG pO2 ABG HCO3 ABG O2 Saturation ABG Base Excess ABG Oxyhemoglobin ABG Sodium ABG Chloride ABG Glucose Oxyhemoglobin Carboxyhemoglobin Sodium Potassium Chloride Carbon Dioxide BUN Creatinine Glucose POC Glucose 256 H 173 H 223 H Hemoglobin A1c Magnesium Ferritin AST ALT Alkaline Phosphatase Lactate Dehydrogenase C-Reactive Protein Total Protein Albumin Arterial Blood Glucose Coronavirus (PCR) 08/20/21 08/20/21 08/20/21 07:52 11:18 15:32 WBC MCV MCH MCHC RDW Lymph % (Auto) [place] % (Auto) Eos % (Auto) Lymph # (Auto) [place] # (Auto) Eos # (Auto) Baso # (Auto) Seg Neutrophils % Seg Neuts % (Manual) Lymphocytes % (Manual) Seg Neutrophils # Seg Neutrophils # Man Lymphocytes # (Manual) D-Dimer ABG pH POC ABG pCO2 POC ABG pO2 ABG pO2 ABG HCO3 ABG O2 Saturation ABG Base Excess ABG Oxyhemoglobin ABG Sodium ABG Chloride ABG Glucose Oxyhemoglobin Carboxyhemoglobin Sodium Potassium Chloride Carbon Dioxide BUN Creatinine Glucose POC Glucose 147 H 280 H 243 H Hemoglobin A1c Magnesium Ferritin AST ALT Alkaline Phosphatase Lactate Dehydrogenase C-Reactive Protein Total Protein Albumin Arterial Blood Glucose Coronavirus (PCR) 08/20/21 08/21/21 08/21/21 22:15 08:26 11:58 WBC MCV MCH MCHC RDW Lymph % (Auto) [place] % (Auto) Eos % (Auto) Lymph # (Auto) [place] # (Auto) Eos # (Auto) Baso # (Auto) Seg Neutrophils % Seg Neuts % (Manual) Lymphocytes % (Manual) Seg Neutrophils # Seg Neutrophils # Man Lymphocytes # (Manual) D-Dimer ABG pH POC ABG pCO2 POC ABG pO2 ABG pO2 ABG HCO3 ABG O2 Saturation ABG Base Excess ABG Oxyhemoglobin ABG Sodium ABG Chloride ABG Glucose Oxyhemoglobin Carboxyhemoglobin Sodium Potassium Chloride Carbon Dioxide BUN Creatinine Glucose POC Glucose 215 H 165 H 241 H Hemoglobin A1c Magnesium Ferritin AST ALT Alkaline Phosphatase Lactate Dehydrogenase C-Reactive Protein Total Protein Albumin Arterial Blood Glucose Coronavirus (PCR) 08/21/21 08/21/21 08/22/21 16:56 22:11 07:20 WBC MCV MCH MCHC RDW Lymph % (Auto) [place] % (Auto) Eos % (Auto) Lymph # (Auto) [place] # (Auto) Eos # (Auto) Baso # (Auto) Seg Neutrophils % Seg Neuts % (Manual) Lymphocytes % (Manual) Seg Neutrophils # Seg Neutrophils # Man Lymphocytes # (Manual) D-Dimer ABG pH POC ABG pCO2 POC ABG pO2 ABG pO2 ABG HCO3 ABG O2 Saturation ABG Base Excess ABG Oxyhemoglobin ABG Sodium ABG Chloride ABG Glucose Oxyhemoglobin Carboxyhemoglobin Sodium Potassium Chloride Carbon Dioxide BUN Creatinine Glucose POC Glucose 276 H 207 H 184 H Hemoglobin A1c Magnesium Ferritin AST ALT Alkaline Phosphatase Lactate Dehydrogenase C-Reactive Protein Total Protein Albumin Arterial Blood Glucose Coronavirus (PCR) 08/22/21 08/22/21 08/22/21 11:32 16:11 20:36 WBC MCV MCH MCHC RDW Lymph % (Auto) [place] % (Auto) Eos % (Auto) Lymph # (Auto) [place] # (Auto) Eos # (Auto) Baso # (Auto) Seg Neutrophils % Seg Neuts % (Manual) Lymphocytes % (Manual) Seg Neutrophils # Seg Neutrophils # Man Lymphocytes # (Manual) D-Dimer ABG pH POC ABG pCO2 POC ABG pO2 ABG pO2 ABG HCO3 ABG O2 Saturation ABG Base Excess ABG Oxyhemoglobin ABG Sodium ABG Chloride ABG Glucose Oxyhemoglobin Carboxyhemoglobin Sodium Potassium Chloride Carbon Dioxide BUN Creatinine Glucose POC Glucose 235 H 240 H 207 H Hemoglobin A1c Magnesium Ferritin AST ALT Alkaline Phosphatase Lactate Dehydrogenase C-Reactive Protein Total Protein Albumin Arterial Blood Glucose Coronavirus (PCR) 08/23/21 08/23/21 08/23/21 08:40 12:20 21:53 WBC MCV MCH MCHC RDW Lymph % (Auto) [place] % (Auto) Eos % (Auto) Lymph # (Auto) [place] # (Auto) Eos # (Auto) Baso # (Auto) Seg Neutrophils % Seg Neuts % (Manual) Lymphocytes % (Manual) Seg Neutrophils # Seg Neutrophils # Man Lymphocytes # (Manual) D-Dimer ABG pH POC ABG pCO2 POC ABG pO2 ABG pO2 ABG HCO3 ABG O2 Saturation ABG Base Excess ABG Oxyhemoglobin ABG Sodium ABG Chloride ABG Glucose Oxyhemoglobin Carboxyhemoglobin Sodium Potassium Chloride Carbon Dioxide BUN Creatinine Glucose POC Glucose 208 H 259 H 258 H Hemoglobin A1c Magnesium Ferritin AST ALT Alkaline Phosphatase Lactate Dehydrogenase C-Reactive Protein Total Protein Albumin Arterial Blood Glucose Coronavirus (PCR) 08/24/21 08/24/21 08/24/21 07:48 11:25 16:30 WBC MCV MCH MCHC RDW Lymph % (Auto) [place] % (Auto) Eos % (Auto) Lymph # (Auto) [place] # (Auto) Eos # (Auto) Baso # (Auto) Seg Neutrophils % Seg Neuts % (Manual) Lymphocytes % (Manual) Seg Neutrophils # Seg Neutrophils # Man Lymphocytes # (Manual) D-Dimer ABG pH POC ABG pCO2 POC ABG pO2 ABG pO2 ABG HCO3 ABG O2 Saturation ABG Base Excess ABG Oxyhemoglobin ABG Sodium ABG Chloride ABG Glucose Oxyhemoglobin Carboxyhemoglobin Sodium Potassium Chloride Carbon Dioxide BUN Creatinine Glucose POC Glucose 189 H 255 H 197 H Hemoglobin A1c Magnesium Ferritin AST ALT Alkaline Phosphatase Lactate Dehydrogenase C-Reactive Protein Total Protein Albumin Arterial Blood Glucose Coronavirus (PCR) 08/24/21 08/25/21 08/25/21 22:12 07:23 11:12 WBC MCV MCH MCHC RDW Lymph % (Auto) [place] % (Auto) Eos % (Auto) Lymph # (Auto) [place] # (Auto) Eos # (Auto) Baso # (Auto) Seg Neutrophils % Seg Neuts % (Manual) Lymphocytes % (Manual) Seg Neutrophils # Seg Neutrophils # Man Lymphocytes # (Manual) D-Dimer ABG pH POC ABG pCO2 POC ABG pO2 ABG pO2 ABG HCO3 ABG O2 Saturation ABG Base Excess ABG Oxyhemoglobin ABG Sodium ABG Chloride ABG Glucose Oxyhemoglobin Carboxyhemoglobin Sodium Potassium Chloride Carbon Dioxide BUN Creatinine Glucose POC Glucose 202 H 167 H 227 H Hemoglobin A1c Magnesium Ferritin AST ALT Alkaline Phosphatase Lactate Dehydrogenase C-Reactive Protein Total Protein Albumin Arterial Blood Glucose Coronavirus (PCR) 08/25/21 08/25/21 08/26/21 16:00 22:18 07:37 WBC MCV MCH MCHC RDW Lymph % (Auto) [place] % (Auto) Eos % (Auto) Lymph # (Auto) [place] # (Auto) Eos # (Auto) Baso # (Auto) Seg Neutrophils % Seg Neuts % (Manual) Lymphocytes % (Manual) Seg Neutrophils # Seg Neutrophils # Man Lymphocytes # (Manual) D-Dimer ABG pH POC ABG pCO2 POC ABG pO2 ABG pO2 ABG HCO3 ABG O2 Saturation ABG Base Excess ABG Oxyhemoglobin ABG Sodium ABG Chloride ABG Glucose Oxyhemoglobin Carboxyhemoglobin Sodium Potassium Chloride Carbon Dioxide BUN Creatinine Glucose POC Glucose 299 H 250 H 238 H Hemoglobin A1c Magnesium Ferritin AST ALT Alkaline Phosphatase Lactate Dehydrogenase C-Reactive Protein Total Protein Albumin Arterial Blood Glucose Coronavirus (PCR) 08/26/21 08/26/21 08/26/21 10:33 15:28 21:29 WBC MCV MCH MCHC RDW Lymph % (Auto) [place] % (Auto) Eos % (Auto) Lymph # (Auto) [place] # (Auto) Eos # (Auto) Baso # (Auto) Seg Neutrophils % Seg Neuts % (Manual) Lymphocytes % (Manual) Seg Neutrophils # Seg Neutrophils # Man Lymphocytes # (Manual) D-Dimer ABG pH POC ABG pCO2 POC ABG pO2 ABG pO2 ABG HCO3 ABG O2 Saturation ABG Base Excess ABG Oxyhemoglobin ABG Sodium ABG Chloride ABG Glucose Oxyhemoglobin Carboxyhemoglobin Sodium Potassium Chloride Carbon Dioxide BUN Creatinine Glucose POC Glucose 285 H 204 H 254 H Hemoglobin A1c Magnesium Ferritin AST ALT Alkaline Phosphatase Lactate Dehydrogenase C-Reactive Protein Total Protein Albumin Arterial Blood Glucose Coronavirus (PCR) 08/27/21 08/27/21 04:59 08:50 WBC MCV MCH MCHC RDW Lymph % (Auto) [place] % (Auto) Eos % (Auto) Lymph # (Auto) [place] # (Auto) Eos # (Auto) Baso # (Auto) Seg Neutrophils % Seg Neuts % (Manual) Lymphocytes % (Manual) Seg Neutrophils # Seg Neutrophils # Man Lymphocytes # (Manual) D-Dimer ABG pH POC ABG pCO2 POC ABG pO2 ABG pO2 ABG HCO3 ABG O2 Saturation ABG Base Excess ABG Oxyhemoglobin ABG Sodium ABG Chloride ABG Glucose Oxyhemoglobin Carboxyhemoglobin Sodium Potassium Chloride 92.7 L Carbon Dioxide 46 H* BUN 18 H Creatinine < 0.2 L Glucose 216 H POC Glucose 237 H Hemoglobin A1c Magnesium Ferritin AST ALT 100 H Alkaline Phosphatase Lactate Dehydrogenase C-Reactive Protein Total Protein 6.1 L Albumin 3.5 L Arterial Blood Glucose Coronavirus (PCR)
[2021-08-27] MEDS: ACETAMINOPHEN 325 MG TAB PO PRN ×2 (15:52→21:48)
[2021-08-27] MEDS: ENOXAPARIN 40 MG/0.4 ML INJ SUB-Q SCH (21:49)
[2021-08-28] MEDS: methylPREDNISolone Sod Succinate 125 MG/2 ML INJ IV SCH (06:59)
[2021-08-28] MEDS: ALPRAZolam 1 MG TAB PO SCH (09:18)
[2021-08-28] MEDS: INSULIN LISPRO 100 UNIT/ML SUB-Q SCH ×2 (09:18→12:08)
[2021-08-28] MEDS: CHOLECALCIFEROL (VIT D3) 1000 UNIT (25 mcg) TAB PO SCH (09:18)
[2021-08-28] MEDS: INSULIN GLARGINE 100 UNITS/ML SUB-Q SCH (09:18)
--- NOTE | 2021-08-28 10:54 | Discharge Summary ---
Providers - Providers Date of Admission: 04/16/21 13:39 Date of discharge: 08/28/21 Attending physician: ARAM KELLER 04/16/21 13:44 Consult to Physician [CONS] Routine Comment: Consulting Provider: VERNON LIU Physician Instructions: Reason For Exam: COVID + 04/17/21 13:33 Consult to Physician [CONS] Routine Comment: Consulting Provider: JALIL LYNCH Physician Instructions: Reason For Exam: covid related acute hypoxic respiratory failure 04/28/21 10:42 Consult to PICC Line RN [CONS] Stat Reason For Exam: pressors Type Line:: PICC 05/09/21 07:49 Physical Therapy Evaluation and Treat [CONS] Routine Comment: Reason For Exam: debility, eval and treat 06/10/21 19:54 Consult to Wound/ET Nurse [CONS] Routine Reason For Exam: wound eval 07/29/21 10:57 Physical Therapy Evaluation and Treat [CONS] Routine Comment: Reason For Exam: debility Primary care physician: MEDICAL DERMATOLOGIST Hospitalization Condition: Fair Hospital course: -Acute hypoxic/hypercapneic respiratory failure --Severe ARDS. Suspected possible post Covid pneumonia lung fibrosis. Continues to require high flow nasal cannula oxygen 30 L/50% FiO2/O2 sats 97% refusing BiPAP, on 100% nonrebreather , Wean as tolerated. Maintain SpO2 >88% Steroids resumed on IV Solu-Medrol on 08/16/2021. Will maintain high-dose IV Solu-Medrol at 125 mg every 8 hours X-ray chest 08/22/2021: Extensive bilateral parenchymal disease unchanged Discussed with pulmonology Dr. Lynch --Metabolic alkalosis Continue monitoring --Heart failure with preserved ejection fraction -TTE: LVEF 55-60% with diastolic dysfunction -will continue to monitor for signs of fluid overload. -On intermittent diuretics. --COVID-19 infection -Has completed treatment. --Type 2 diabetes -Uncontrolled most likely due to steroid -Continue Lantus to 20 SQ daily. Continue sliding scale insulin. --Anxiety -Stable -continue xanax --DVT prophylaxis -Lovenox 40 daily --Deconditioning PT OT when stable Possible SNF placement at discharge Resolved issues #Sepsis secondary to COVID-19 #Iatrogenic diarrhea #Hypomagnesemia #Hyponatremia #Protein calorie malnutrition #Dysuria #Hypokalemia #Possible UTI Disposition: HOME HEALTH CARE SERVICE Final Discharge Diagnosis (Prints w/discharge instructions): COVID-19 infection. Heart failure with preserved ejection fraction. Acute hypoxic respiratory failure/improved on 3 L oxygen now. Type 2 diabetes mellitus. Anxiety disorder. Generalized deconditioning. Sepsis due to COVID-19 resolved. Electrolyte imbalances corrected. UTI corrected Time spent for discharge: 50 min Core Measure Documentation - Palliative Care Palliative Care/ Comfort Measures: Not Applicable - Core Measures Any of the following diagnoses?: none Exam - Constitutional Vitals: Temp Pulse Resp BP Pulse Ox 98.3 F 86 24 100/52 98 08/28/21 07:29 08/28/21 09:00 08/28/21 09:00 08/28/21 09:00 08/28/21 09:00 General appearance: Present: no acute distress, well-nourished - EENT Eyes: Present: PERRL, EOM intact - Neck Neck: Present: supple, normal ROM - Respiratory Respiratory effort: normal Respiratory: bilateral: diminished, negative: rales, rhonchi, wheezing - Cardiovascular Rhythm: regular Heart Sounds: Present: S1 & S2 - Extremities Extremities: no ischemia, No edema - Abdominal General gastrointestinal: Present: soft, non-tender, non-distended, normal bowel sounds - Integumentary Integumentary: Present: clear, warm - Musculoskeletal Musculoskeletal: strength equal bilaterally, generalized weakness - Psychiatric Psychiatric: appropriate mood/affect, cooperative Plan Activity: advance as tolerated, fall precautions Diet: diabetic Additional Instructions: If you have worsening symptoms contact MD or go to the nearest emergency room. Advised to follow-up with pulmonary, primary care physician per schedule. Continue oxygen 2 to 3 L as needed. Advised to follow Covid protocols that are instructed by the discharge nurse Follow up with: PRIMARY CARE, [Primary Care Provider] - 3-5 Days JALIL LYNCH MD [Staff Physician] - 7 Days Prescriptions: Insulin Glargine [Lantus VIAL] 10 units SUB-Q DAILY 30 Days #2 vial Insulin Regular, Human [Novolin R] 4 units SC ACHS 30 Days #2 vial predniSONE 6 tab PO QDAY #104 tab Calcium Carbonate [Tums 500MG CHEW] 500 mg PO BID PRN #14 tablet PRN Reason: reflux Cholecalciferol Vit D3 [Vitamin D3 1,000 UNIT TAB] 1,000 unit PO QDAY #14 tablet ALPRAZolam [Xanax TAB] 1 mg PO BID PRN #7 tablet PRN Reason: Anxiety Other Discharge Orders: Glucometer (Amb) Location: None Selected Glucometer supplies[Amb] Location: None Selected
[2021-08-28 11:38] VITALS: BP 109/59
--- NOTE | 2021-08-28 11:43 | Progress Note ---
Assessment and Plan 50 y/o female with acute respiratory failure secondary to COVID19 pneumonia. 08/28/21: Patient discharging today. Will need prolonged taper: Pred 60 daily for 8 days then 40 daily for 8 days then 20 daily for 8 days then 10 daily for 8 days. Will arrange follow up in our office. No objection to discharge. 08/27/21: Continue to wean FiO2 as tolerated for sats >88%. PT/OT. Tomorrow will discuss with pharmacy about weaning and how long of a steroid taper she should have. Continue IMCU for now. 08/26/21: Continue to wean FiO2 and flow as tolerated. Order CXR and start dropping steroids down tomorrow. 08/23/21: Patient continues to have slow improvement with steroids so please continue solumedrol 125q8 through the weekend at least and will reassess on Thursday. CM is working to obtain hospice placement with hfnc therapy. Repeat CXR on Thursday. 08/21/21: Will repeat CXR today. Consider decreasing steroid tomorrow. 08/18/21: Will continue steroids at current dosing as I believe they are helping. IMS managing blood sugars. I notified RT but I dropped FiO2 down to 55% while patient was sleeping. Will continue to follow. CM still working with hospice to get home but has to meet certain criteria on HFNC and she is not there yet. 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 Will continue solumedrol 125q8 and wean slowly over time. Discussed with pharmacy. CM working on possible placement with hospice company once she reaches a certain goal of HFNC. Will continue to monitor. 08/14/21: wean HFNC as tolerated. 08/12/21: Continue to attempt to wean HFNC. No other therapies available for this at present. Will check CXR today. 08/07/21: Constant struggle with Ms. Ren, on and off bipap. Good and bad days. She has had all therapy. Anxiety does play a huge roll but she truly desats. Continue NIV at night and PRN during the day. Wean HFNC as tolerated for sats >88%. May consider another trial of steroids when I come back. My partner is rounding the next 4 days. 08/05/21: I dropped FiO2 to 65%. Continue to wean for sats >88%. 08/03/21: COntinue supportive measures. Thank you for documenting refusal of NIV at night. Will attempt to speak with patient about anxiety and why she doesn't want to wear the NIV via the language line. 08/02/21: Continue supportive care. pLaced new order for NIV at night. Please document if patient refuses 07/31/21: COntinue to wean FiO2 as tolerated. NIV at night. 07/30/21: Bipap QHS. Please document if patient is refusing this at night. Per nurse she has refused but RT documentation reflects that it was PRN and not needed. Prognosis is still guarded. 07/29/21: Continue to attempt to wean FiO2. Given fluctuations in oxygen requirements, ok with keeping in IMCU. consider using bipap therapy at night if patient will allow. Prognosis still remains guarded. Patient has been here 104 days. 07/21/21: Wean FiO2 as tolerated. Patient has never proned the entire 96 days she has been here. Will continue bipap at night. Hold on lasix again today. Prognosis remains guarded. Has finished steroids and all other experimental COVID drugs with minimal to no improvement. 07/20/21: Give patient a break off of bipap and attempt high flow nasal cannula today. Will feed. Suggest keeping bipap therapy at night. Monitor fluid balance and BP. May need more lasix. 07/19/21: This was not related to stopping steroids as hemodynamically she is st able. Her sats is very good on 90%, I dropped to 85 and will continue to wean. She speaks no korean and is very anxious. This adds to her work of breathing. COntinue to wean FiO2 as tolerated. Will give periodic breaks on bipap therapy. Guarded prognosis. 07/17/21: will stop steroids today. Hold on lasix given marginal blood pressure. Guarded prognosis. 07/15/21: Lasix today. Positive fluid balance all weekend based on I/O. Prone. Wean for sats >88% 07/12/21: Gave lasix 40mg IV again this am. Per charting yesterday was the first net negative day. Suggest PRN diuresis over the weekend as well. My partner is rounding but will likely see as needed. Continue to wean for sats > 88% 07/11/21: Lasix 40mg IV this am. Attempt to prone if able. Attempt to achieve daily net negative state. Wean for sats >88%. Guarded prognosis. Will change prednisone to 5mg daily starting tomorrow. 07/09/21: Echo shows diastolic dysfunction. Will given an additional 40 of IV lasix today. Monitor daily and wean aggressively for sats >88% 07/08/21: Worsening CXR, Gave lasix yesterday and will give again today. Suggest checking echo, ekg. Prognosis is poor now with this change. We have seen COVID cause CAD with MD. 07/05/21: Will monitor over the weekend. Worst case scenario, may need to go back up to Prednisone 20 at least. Prone if able. Unsure why all of sudden oxy gen requirement increasing. Will repeat CXR. 07/03/21: Down to 10 of prednisone. Will keep through the weekend and then drop to 5 on Thursday. PT/OT assessment if not done. Suggest maybe weaning flow now given FiO2 down to 50%. Prognosis is still guarded. 07/01/21: Will drop steroids to 10mg daily starting tomorrow. Wean for sats >88%. Prone. PT/OT should be seeing now that oxygen requirement is down more. 06/28/21: Continue to wean as tolerated. Will drop steroids down even further next week. Will see PRN over the weekend. 06/26/21: Will drop steroids down to 20 starting tomorrow. Prone. Continue to wean as tolerated. 06/24/21: Continue Pred, will drop to 20 daily tomorrow. Prone if able. Hopeful they can wean FiO2 more. May need to consider increasing flow for a whi le. 06/21/21: Continue pred at 40, will decrease likely Thursday/Thursday to 20 daily. Prone if able. Continue to wean as tolerated. Prognosis still remains guarded. 06/20/21: Will drop steroids down to 40 today. Proning. Continue to wean FiO2. 06/18/21: Wean Fio2 for sats >88%. Please encourage proning. Drop steroids down to 40 on . 06/14/21: Continue oral steroid therapy. Will do further weaning next week. Wean for sats >88% and prone as tolerated. Will see as needed over the weekend. 06/13/21: Will change to prednisone 60 daily starting tomorrow. Prone if able and wean for sats >88% 06/11/21: no new recs, will change to oral steroids tomorrow, continue to prone if able and wean for sats >88% 06/10/21: Will change to oral steroids on Thursday to begin prolonged taper 06/06/21: Continue to wean as tolerated, will drop steroids on tomorrow. 06/04/21: Clinically no change. Will drop steroids down the end of this week. 05/31/21: Clinically no change. Not eligible for LTACH. Encourage Proning. Will drop steroids down to 40 q8 05/29/21: No acute changes clinically. Still on HFNC but not really able to wean. Continue to encourage proning. Will drop steroids further on Thursday. 05/27/21: No improvement over the weekend but also no worsening. No other strategies to offer. Please continue to encourage patient to prone. I dropped steroids on yesterday. Will wean more later in the week. 05/24/21: No new recs again for today. Will see as needed over the weekend but follow chart peripherally for changes. 05/22/21: No new recs for today. Prognosis remains guarded. 05/21/21: Wean as tolerated. Prone if able. Guarded prognosis 05/20/21: COntinue current level of care. 05/17/21: Prone if possible. Wean FiO2 for sats >88%. Continue scheduled ativan. Prognosis is very very guarded. Unfunded so not a candidate for LTACH 05/16/21: Prone if willing. Wean FIO2 if patient will allow. Anxiety control. Prognosis still remains very guarded. 05/15/21: Not sure if MAR is accurate but may have only gotten one dose of scheduled anixolytic therapy. Continue proning as tolerated, and wean FiO2 and flow for sats >88%. Prognosi remains very very guarded to poor. 05/14/21: Will discontinue the buspar and make the ativan scheduled but will do q6 as oppose to q4 and attempt to leave parameters for nursing when not to give. If anxiety could be controlled, feel that patient could be weaned further. She has no funding so she is not a candidate for LTACH. Prone if possible. Guarded prognosis. This is her day. 05/13/21: Ordered buspar 10 BID to start with to help with anxiety. Please continue to wean FiO2 as tolerated. Will remind nurse that there is PRN ativan available. Continue higher doses of steroids. Prone if able. 05/12/21: Patient may need something longer acting for anxiety. Per chart has not gotten any ativan in days. Would be ok with either buspar or low dose klonopin bid. COntinue higher doses of steroids as patient seems to be responding. Prone if possible. 05/11/21: Continue high doses of steroids and continue to wean for sats >88%. Please encourage proning. 05/10/21: Will continue this dose of steroid at least through the weekend and assess for improvement. will speak with RT about aggressive weaning. Full dose anticoagulation continues. Very very guarded to poor prognosis. 05/09/21: Going to consider increasing steroids to 125q8, maybe as early as tomorrow. continue full dose anticoagulation. 05/08/21: Continue anticoagulation and steroids. Prone if possible. Anxiety control. No objection to CTA if this can happen. Very very guarded prognosis. 05/07/21: Spoke with IMS, not opposed to full dose anticoagulation. If patient goes back on NRB HFNC combo may need to consider restarting PPN again. Encourage proning. Guarded prognosis. 05/06/21: Continue to wean FiO2 and flow for sats >88%. Tolerating diet now so will stop PPN. Continue anxiety control. Continue IV steroids. Would not object to transfer to COVID floor if bed available. Not sure why she was titr ated back up to 100% from 85 as all sats documented in the RT's notes were acceptable. Same for under vital signs as well. 05/03/21: Set back last night from yesterday. Continue bipap therapy for now and attempt HFNC maybe later this afternoon. Continue to use PRN ativan but may need to schedule as she likely took off mask from anxiety. Continue IV steroids. Hold on transfer to COVID Floor. 05/02/21: Continue to wean FiO2 as tolerated for sats >88%. Will continue bipap at night. Patient has no funding so not a candidate for LTACH. Given that she has been stable and not requiring the combo of HFNC and NRB, will consider moving to COVID floor. 05/01/21: Continue to wean FiO2 for sats >88%. A sat of 90 is more than acceptable and oxygen should not be increased for this unless patient desats and remains at a sat lower than 88. Bipap at night to give some form of relief and HFNC during the day. Currently on just this alone which is improvement. Ok with daily diuresis but must monitor renal function and BP closely. She was over diuresed last week and we ended up giving fluid back. Prognosis remains guarded. 04/30/21: Will start CLinimix today for nutritional support, without electrolytes. Check labs in am. Prone if able. Continue precedex for anxiety. Very very guarded prognosis. Attempting our best to not intubate. 04/29/21: Continue precedex. Continue IV solumedrol. Prone if able. Guarded prognosis. 04/28/21: Continue Precedex. Picc team attempting to place line now. Stable on Bipap. Ordered steroids IV solumedrol to start today. Prognosis remains guarded, still at very high risk for intubation. 04/27/21: Hypotension improving/improved. Hold on any further lasix dosing. Continue precedex to help with anxeity. later today please attempt HFNC with NRB if needed. Attempt to feed if possible. Steroids end today, please order solumedrol 40q8 to start tomorrow (04/28/21). guarded prognosis. 04/26/21: Hypotension today, most likely from precedex use and diuresis that I did the last several days. Will bolus again today. Consider midodrine if BP does not respond. 04/25/21: Lasix again today. Keep PRN ativan for now. Hold on precedex for now. Guarded prognosis. Labs ordered for tomorrow. 04/24/21: Lasix today. Will also start patient on low dose PRN ativan. If this does not help will then try precedex. Guarded prognosis. 04/23/21: Prone as tolerated. No lasix today. Continue decadron. Guarded prognosis. High risk for intubation and high mortality with intubation. 04/19/21: Prone as tolerated during the day and sleep prone at night. Continue IV remdesivir and steroids. Did get actemra. Guarded prognosis. 1. Daily net negative state 2. Prone if possible 3. IV remdesivir. 4. Should be a candidate for Actemra 5. IV steroids 6. Guarded Prognosis Subjective Date of service: 08/28/21 Principal diagnosis: Covid-19 Interval history: Patient down to 3 liters!!!!!!!!!!!!!!!!!!!!!!!!!!!!!!!!!!!!!!!!!!!!!!!!!!!! !!!!!!!!! Patient is also being discharged today!!!!!!!!!!!!!!!!!!!!!!!!!!!!!!!!!!!!!!!!!!!!!!!!!!!!!!!!!!!!!! No acute events overnight and tolerated all therapies. Objective Vital Signs - 12hr 08/28/21 08/28/21 08/28/21 00:00 00:07 01:00 Temperature 97.6 F Pulse Rate 79 77 73 Pulse Rate [ From Monitor] Respiratory 21 20 Rate Blood Pressure 100/47 101/47 O2 Sat by Pulse 96 98 Oximetry 08/28/21 08/28/21 08/28/21 02:00 03:00 04:00 Temperature 97.5 F L Pulse Rate 75 80 79 Pulse Rate [ 78 From Monitor] Respiratory 24 22 25 H Rate Blood Pressure 96/42 86/36 91/42 O2 Sat by Pulse 98 98 100 Oximetry 08/28/21 08/28/21 08/28/21 04:11 05:00 06:00 Temperature Pulse Rate 78 75 78 Pulse Rate [ From Monitor] Respiratory 21 20 Rate Blood Pressure 89/45 95/48 O2 Sat by Pulse 100 99 Oximetry 08/28/21 08/28/21 08/28/21 07:00 07:29 08:00 Temperature 98.3 F Pulse Rate 86 96 H Pulse Rate [ From Monitor] Respiratory 24 29 H Rate Blood Pressure 105/50 116/62 O2 Sat by Pulse 98 88 Oximetry 08/28/21 08/28/21 08/28/21 08:07 09:00 10:00 Temperature Pulse Rate 86 96 H Pulse Rate [ 83 From Monitor] Respiratory 21 24 30 H Rate Blood Pressure 100/52 106/54 O2 Sat by Pulse 100 98 97 Oximetry 08/28/21 11:00 Temperature Pulse Rate 100 H Pulse Rate [ From Monitor] Respiratory 19 Rate Blood Pressure 109/59 O2 Sat by Pulse 95 Oximetry Constitutional: alert, other (on hiflo o2) Eyes: non-icteric ENT: oropharynx moist Neck: supple Effort: normal Ascultation: Bilateral: diminished breath sounds Cardiovascular: regular rate and rhythm Gastrointestinal: normoactive bowel sounds, soft, non-tender, non-distended Integumentary: normal Extremities: no cyanosis, no edema, pink and warm Neurologic: non-focal exam, pupils equal and round Psychiatric: mood appropriate, affect normal CBC and BMP: 07/23/21 04:35 08/27/21 04:59 ABG, PT/INR, D-dimer: ABG ABG pH 7.417 (7.320-7.450) 07/23/21 18:11 POC ABG pCO2 78.3 mmHg (32.0-48.0) H 07/23/21 18:11 ABG pCO2 85.7 mm Hg 07/22/21 12:05 POC ABG pO2 80.7 mmHg (83-108) L 07/23/21 18:11 ABG pO2 66.1 mm Hg (80.0-90.0) L 07/22/21 12:05 POC ABG HCO3 49.3 07/23/21 18:11 ABG O2 Saturation 96.7 (0-100) 07/23/21 18:11 PT/INR, D-dimer D-Dimer 638.35 ng/mlDDU (0-234) H 07/09/21 04:45 Abnormal lab findings: Abnormal Labs 04/16/21 04/16/21 04/16/21 11:42 11:42 11:42 WBC MCV MCH MCHC RDW 16.1 H Lymph % (Auto) 7.8 L [place] % (Auto) Eos % (Auto) Lymph # (Auto) 0.8 L [place] # (Auto) Eos # (Auto) Baso # (Auto) Seg Neutrophils % 87.7 H Seg Neuts % (Manual) Lymphocytes % (Manual) Seg Neutrophils # 8.5 H Seg Neutrophils # Man Lymphocytes # (Manual) D-Dimer 338.70 H ABG pH POC ABG pCO2 POC ABG pO2 ABG pO2 ABG HCO3 ABG O2 Saturation ABG Base Excess ABG Oxyhemoglobin ABG Sodium ABG Chloride ABG Glucose Oxyhemoglobin Carboxyhemoglobin Sodium Potassium Chloride Carbon Dioxide BUN Creatinine Glucose 194 H POC Glucose Hemoglobin A1c Magnesium Ferritin AST ALT Alkaline Phosphatase Lactate Dehydrogenase C-Reactive Protein Total Protein 8.4 H Albumin 3.8 L Arterial Blood Glucose Coronavirus (PCR) 04/16/21 04/16/21 04/17/21 11:42 11:42 03:50 WBC MCV MCH MCHC RDW 16.0 H Lymph % (Auto) 7.7 L [place] % (Auto) Eos % (Auto) Lymph # (Auto) 0.6 L [place] # (Auto) Eos # (Auto) Baso # (Auto) Seg Neutrophils % 89.8 H Seg Neuts % (Manual) Lymphocytes % (Manual) Seg Neutrophils # Seg Neutrophils # Man Lymphocytes # (Manual) D-Dimer ABG pH POC ABG pCO2 POC ABG pO2 ABG pO2 ABG HCO3 ABG O2 Saturation ABG Base Excess ABG Oxyhemoglobin ABG Sodium ABG Chloride ABG Glucose Oxyhemoglobin Carboxyhemoglobin Sodium Potassium Chloride Carbon Dioxide BUN Creatinine Glucose 195 H POC Glucose Hemoglobin A1c Magnesium Ferritin 254.3 H AST ALT Alkaline Phosphatase Lactate Dehydrogenase 359 H C-Reactive Protein 15.20 H Total Protein Albumin Arterial Blood Glucose Coronavirus (PCR) 04/17/21 04/17/21 04/17/21 03:50 08:26 08:26 WBC MCV MCH MCHC RDW Lymph % (Auto) [place] % (Auto) Eos % (Auto) Lymph # (Auto) [place] # (Auto) Eos # (Auto) Baso # (Auto) Seg Neutrophils % Seg Neuts % (Manual) Lymphocytes % (Manual) Seg Neutrophils # Seg Neutrophils # Man Lymphocytes # (Manual) D-Dimer 262.48 H ABG pH POC ABG pCO2 POC ABG pO2 ABG pO2 ABG HCO3 ABG O2 Saturation ABG Base Excess ABG Oxyhemoglobin ABG Sodium ABG Chloride ABG Glucose Oxyhemoglobin Carboxyhemoglobin Sodium Potassium Chloride Carbon Dioxide BUN 20 H Creatinine 0.5 L Glucose 249 H 225 H POC Glucose Hemoglobin A1c Magnesium Ferritin AST ALT Alkaline Phosphatase Lactate Dehydrogenase 338 H C-Reactive Protein 17.20 H Total Protein Albumin 3.2 L Arterial Blood Glucose Coronavirus (PCR) 04/17/21 04/17/21 04/17/21 08:26 15:04 Unknown WBC MCV MCH MCHC RDW Lymph % (Auto) [place] % (Auto) Eos % (Auto) Lymph # (Auto) [place] # (Auto) Eos # (Auto) Baso # (Auto) Seg Neutrophils % Seg Neuts % (Manual) Lymphocytes % (Manual) Seg Neutrophils # Seg Neutrophils # Man Lymphocytes # (Manual) D-Dimer ABG pH POC ABG pCO2 POC ABG pO2 ABG pO2 ABG HCO3 ABG O2 Saturation ABG Base Excess ABG Oxyhemoglobin ABG Sodium ABG Chloride ABG Glucose Oxyhemoglobin Carboxyhemoglobin Sodium Potassium Chloride Carbon Dioxide BUN 20 H Creatinine 0.5 L Glucose 246 H POC Glucose Hemoglobin A1c Magnesium Ferritin 392.0 H AST ALT Alkaline Phosphatase Lactate Dehydrogenase C-Reactive Protein Total Protein 8.3 H Albumin 3.1 L Arterial Blood Glucose Coronavirus (PCR) Positive A 04/18/21 04/18/21 04/18/21 05:06 05:06 07:36 WBC 11.6 H MCV MCH MCHC RDW 16.1 H Lymph % (Auto) [place] % (Auto) Eos % (Auto) Lymph # (Auto) [place] # (Auto) Eos # (Auto) Baso # (Auto) Seg Neutrophils % Seg Neuts % (Manual) Lymphocytes % (Manual) Seg Neutrophils # Seg Neutrophils # Man Lymphocytes # (Manual) D-Dimer ABG pH POC ABG pCO2 POC ABG pO2 ABG pO2 ABG HCO3 ABG O2 Saturation ABG Base Excess ABG Oxyhemoglobin ABG Sodium ABG Chloride ABG Glucose Oxyhemoglobin Carboxyhemoglobin Sodium Potassium 5.2 H Chloride Carbon Dioxide BUN 22 H Creatinine 0.5 L Glucose 315 H POC Glucose Hemoglobin A1c 8.5 H Magnesium Ferritin AST ALT Alkaline Phosphatase Lactate Dehydrogenase C-Reactive Protein Total Protein Albumin 3.3 L Arterial Blood Glucose Coronavirus (PCR) 04/18/21 04/18/21 04/18/21 11:59 16:43 23:24 WBC MCV MCH MCHC RDW Lymph % (Auto) [place] % (Auto) Eos % (Auto) Lymph # (Auto) [place] # (Auto) Eos # (Auto) Baso # (Auto) Seg Neutrophils % Seg Neuts % (Manual) Lymphocytes % (Manual) Seg Neutrophils # Seg Neutrophils # Man Lymphocytes # (Manual) D-Dimer ABG pH POC ABG pCO2 POC ABG pO2 ABG pO2 ABG HCO3 ABG O2 Saturation ABG Base Excess ABG Oxyhemoglobin ABG Sodium ABG Chloride ABG Glucose Oxyhemoglobin Carboxyhemoglobin Sodium Potassium Chloride Carbon Dioxide BUN Creatinine Glucose POC Glucose 284 H 273 H 290 H Hemoglobin A1c Magnesium Ferritin AST ALT Alkaline Phosphatase Lactate Dehydrogenase C-Reactive Protein Total Protein Albumin Arterial Blood Glucose Coronavirus (PCR) 04/19/21 04/19/21 04/19/21 04:19 04:19 08:10 WBC MCV MCH MCHC RDW 15.7 H Lymph % (Auto) [place] % (Auto) Eos % (Auto) Lymph # (Auto) [place] # (Auto) Eos # (Auto) Baso # (Auto) Seg Neutrophils % Seg Neuts % (Manual) Lymphocytes % (Manual) Seg Neutrophils # Seg Neutrophils # Man Lymphocytes # (Manual) D-Dimer ABG pH POC ABG pCO2 POC ABG pO2 ABG pO2 ABG HCO3 ABG O2 Saturation ABG Base Excess ABG Oxyhemoglobin ABG Sodium ABG Chloride ABG Glucose Oxyhemoglobin Carboxyhemoglobin Sodium Potassium Chloride Carbon Dioxide BUN 27 H Creatinine 0.4 L Glucose 184 H POC Glucose 194 H Hemoglobin A1c Magnesium Ferritin AST ALT Alkaline Phosphatase Lactate Dehydrogenase C-Reactive Protein Total Protein Albumin 3.1 L Arterial Blood Glucose Coronavirus (PCR) 04/19/21 04/19/21 04/19/21 11:38 16:25 22:04 WBC MCV MCH MCHC RDW Lymph % (Auto) [place] % (Auto) Eos % (Auto) Lymph # (Auto) [place] # (Auto) Eos # (Auto) Baso # (Auto) Seg Neutrophils % Seg Neuts % (Manual) Lymphocytes % (Manual) Seg Neutrophils # Seg Neutrophils # Man Lymphocytes # (Manual) D-Dimer ABG pH POC ABG pCO2 POC ABG pO2 ABG pO2 ABG HCO3 ABG O2 Saturation ABG Base Excess ABG Oxyhemoglobin ABG Sodium ABG Chloride ABG Glucose Oxyhemoglobin Carboxyhemoglobin Sodium Potassium Chloride Carbon Dioxide BUN Creatinine Glucose POC Glucose 224 H 297 H 251 H Hemoglobin A1c Magnesium Ferritin AST ALT Alkaline Phosphatase Lactate Dehydrogenase C-Reactive Protein Total Protein Albumin Arterial Blood Glucose Coronavirus (PCR) 04/20/21 04/20/21 04/20/21 05:28 08:43 16:21 WBC MCV MCH MCHC RDW Lymph % (Auto) [place] % (Auto) Eos % (Auto) Lymph # (Auto) [place] # (Auto) Eos # (Auto) Baso # (Auto) Seg Neutrophils % Seg Neuts % (Manual) Lymphocytes % (Manual) Seg Neutrophils # Seg Neutrophils # Man Lymphocytes # (Manual) D-Dimer ABG pH POC ABG pCO2 POC ABG pO2 ABG pO2 ABG HCO3 ABG O2 Saturation ABG Base Excess ABG Oxyhemoglobin ABG Sodium ABG Chloride ABG Glucose Oxyhemoglobin Carboxyhemoglobin Sodium Potassium Chloride Carbon Dioxide BUN 27 H Creatinine Glucose 192 H POC Glucose 173 H 253 H Hemoglobin A1c Magnesium Ferritin AST ALT Alkaline Phosphatase Lactate Dehydrogenase C-Reactive Protein Total Protein Albumin 3.0 L Arterial Blood Glucose Coronavirus (PCR) 04/21/21 04/21/21 04/21/21 07:58 12:05 16:08 WBC MCV MCH MCHC RDW Lymph % (Auto) [place] % (Auto) Eos % (Auto) Lymph # (Auto) [place] # (Auto) Eos # (Auto) Baso # (Auto) Seg Neutrophils % Seg Neuts % (Manual) Lymphocytes % (Manual) Seg Neutrophils # Seg Neutrophils # Man Lymphocytes # (Manual) D-Dimer ABG pH POC ABG pCO2 POC ABG pO2 ABG pO2 ABG HCO3 ABG O2 Saturation ABG Base Excess ABG Oxyhemoglobin ABG Sodium ABG Chloride ABG Glucose Oxyhemoglobin Carboxyhemoglobin Sodium Potassium Chloride Carbon Dioxide BUN Creatinine Glucose POC Glucose 140 H 252 H 214 H Hemoglobin A1c Magnesium Ferritin AST ALT Alkaline Phosphatase Lactate Dehydrogenase C-Reactive Protein Total Protein Albumin Arterial Blood Glucose Coronavirus (PCR) 04/21/21 04/22/21 04/22/21 21:42 08:37 12:01 WBC MCV MCH MCHC RDW Lymph % (Auto) [place] % (Auto) Eos % (Auto) Lymph # (Auto) [place] # (Auto) Eos # (Auto) Baso # (Auto) Seg Neutrophils % Seg Neuts % (Manual) Lymphocytes % (Manual) Seg Neutrophils # Seg Neutrophils # Man Lymphocytes # (Manual) D-Dimer ABG pH 7.457 H POC ABG pCO2 POC ABG pO2 49.4 L ABG pO2 ABG HCO3 ABG O2 Saturation ABG Base Excess ABG Oxyhemoglobin 85.6 L ABG Sodium ABG Chloride ABG Glucose 121 H Oxyhemoglobin Carboxyhemoglobin 0.3 L Sodium Potassium Chloride Carbon Dioxide BUN Creatinine Glucose POC Glucose 162 H 227 H Hemoglobin A1c Magnesium Ferritin AST ALT Alkaline Phosphatase Lactate Dehydrogenase C-Reactive Protein Total Protein Albumin Arterial Blood Glucose 121 H Coronavirus (PCR) 04/22/21 04/22/21 04/23/21 16:26 22:23 04:52 WBC MCV MCH MCHC RDW 15.7 H Lymph % (Auto) [place] % (Auto) Eos % (Auto) Lymph # (Auto) [place] # (Auto) Eos # (Auto) Baso # (Auto) Seg Neutrophils % Seg Neuts % (Manual) Lymphocytes % (Manual) Seg Neutrophils # Seg Neutrophils # Man Lymphocytes # (Manual) D-Dimer ABG pH POC ABG pCO2 POC ABG pO2 ABG pO2 ABG HCO3 ABG O2 Saturation ABG Base Excess ABG Oxyhemoglobin ABG Sodium ABG Chloride ABG Glucose Oxyhemoglobin Carboxyhemoglobin Sodium Potassium Chloride Carbon Dioxide BUN Creatinine Glucose POC Glucose 200 H 136 H Hemoglobin A1c Magnesium Ferritin AST ALT Alkaline Phosphatase Lactate Dehydrogenase C-Reactive Protein Total Protein Albumin Arterial Blood Glucose Coronavirus (PCR) 04/23/21 04/23/21 04/23/21 04:52 12:06 17:41 WBC MCV MCH MCHC RDW Lymph % (Auto) [place] % (Auto) Eos % (Auto) Lymph # (Auto) [place] # (Auto) Eos # (Auto) Baso # (Auto) Seg Neutrophils % Seg Neuts % (Manual) Lymphocytes % (Manual) Seg Neutrophils # Seg Neutrophils # Man Lymphocytes # (Manual) D-Dimer ABG pH POC ABG pCO2 POC ABG pO2 ABG pO2 ABG HCO3 ABG O2 Saturation ABG Base Excess ABG Oxyhemoglobin ABG Sodium ABG Chloride ABG Glucose Oxyhemoglobin Carboxyhemoglobin Sodium 136 L Potassium Chloride 97.7 L Carbon Dioxide BUN 23 H Creatinine Glucose 101 H POC Glucose 202 H 169 H Hemoglobin A1c Magnesium Ferritin AST 46 H ALT Alkaline Phosphatase Lactate Dehydrogenase C-Reactive Protein Total Protein Albumin 3.3 L Arterial Blood Glucose Coronavirus (PCR) 04/23/21 04/24/21 04/24/21 23:08 05:17 08:38 WBC MCV MCH MCHC RDW Lymph % (Auto) [place] % (Auto) Eos % (Auto) Lymph # (Auto) [place] # (Auto) Eos # (Auto) Baso # (Auto) Seg Neutrophils % Seg Neuts % (Manual) Lymphocytes % (Manual) Seg Neutrophils # Seg Neutrophils # Man Lymphocytes # (Manual) D-Dimer ABG pH POC ABG pCO2 POC ABG pO2 ABG pO2 ABG HCO3 ABG O2 Saturation ABG Base Excess ABG Oxyhemoglobin ABG Sodium ABG Chloride ABG Glucose Oxyhemoglobin Carboxyhemoglobin Sodium Potassium Chloride Carbon Dioxide BUN Creatinine Glucose POC Glucose 111 H 108 H 126 H Hemoglobin A1c Magnesium Ferritin AST ALT Alkaline Phosphatase Lactate Dehydrogenase C-Reactive Protein Total Protein Albumin Arterial Blood Glucose Coronavirus (PCR) 04/24/21 04/24/21 04/24/21 11:54 17:57 21:23 WBC MCV MCH MCHC RDW Lymph % (Auto) [place] % (Auto) Eos % (Auto) Lymph # (Auto) [place] # (Auto) Eos # (Auto) Baso # (Auto) Seg Neutrophils % Seg Neuts % (Manual) Lymphocytes % (Manual) Seg Neutrophils # Seg Neutrophils # Man Lymphocytes # (Manual) D-Dimer ABG pH POC ABG pCO2 POC ABG pO2 ABG pO2 ABG HCO3 ABG O2 Saturation ABG Base Excess ABG Oxyhemoglobin ABG Sodium ABG Chloride ABG Glucose Oxyhemoglobin Carboxyhemoglobin Sodium Potassium Chloride Carbon Dioxide BUN Creatinine Glucose POC Glucose 147 H 177 H 138 H Hemoglobin A1c Magnesium Ferritin AST ALT Alkaline Phosphatase Lactate Dehydrogenase C-Reactive Protein Total Protein Albumin Arterial Blood Glucose Coronavirus (PCR) 04/25/21 04/25/21 04/25/21 07:06 11:23 15:43 WBC MCV MCH MCHC RDW Lymph % (Auto) [place] % (Auto) Eos % (Auto) Lymph # (Auto) [place] # (Auto) Eos # (Auto) Baso # (Auto) Seg Neutrophils % Seg Neuts % (Manual) Lymphocytes % (Manual) Seg Neutrophils # Seg Neutrophils # Man Lymphocytes # (Manual) D-Dimer ABG pH POC ABG pCO2 POC ABG pO2 ABG pO2 ABG HCO3 ABG O2 Saturation ABG Base Excess ABG Oxyhemoglobin ABG Sodium ABG Chloride ABG Glucose Oxyhemoglobin Carboxyhemoglobin Sodium Potassium Chloride Carbon Dioxide BUN Creatinine Glucose POC Glucose 147 H 169 H 227 H Hemoglobin A1c Magnesium Ferritin AST ALT Alkaline Phosphatase Lactate Dehydrogenase C-Reactive Protein Total Protein Albumin Arterial Blood Glucose Coronavirus (PCR) 04/25/21 04/26/21 04/26/21 21:22 02:45 05:15 WBC MCV MCH MCHC RDW Lymph % (Auto) [place] % (Auto) Eos % (Auto) Lymph # (Auto) [place] # (Auto) Eos # (Auto) Baso # (Auto) Seg Neutrophils % Seg Neuts % (Manual) Lymphocytes % (Manual) Seg Neutrophils # Seg Neutrophils # Man Lymphocytes # (Manual) D-Dimer ABG pH POC ABG pCO2 POC ABG pO2 70.7 L ABG pO2 ABG HCO3 ABG O2 Saturation ABG Base Excess ABG Oxyhemoglobin 93.0 L ABG Sodium 132.7 L ABG Chloride ABG Glucose 115 H Oxyhemoglobin Carboxyhemoglobin Sodium Potassium Chloride 95.8 L Carbon Dioxide 32 H BUN 20 H Creatinine Glucose 102 H POC Glucose 196 H Hemoglobin A1c Magnesium Ferritin AST ALT Alkaline Phosphatase Lactate Dehydrogenase C-Reactive Protein Total Protein Albumin Arterial Blood Glucose 115 H Coronavirus (PCR) 04/26/21 04/26/21 04/26/21 11:49 16:09 21:07 WBC MCV MCH MCHC RDW Lymph % (Auto) [place] % (Auto) Eos % (Auto) Lymph # (Auto) [place] # (Auto) Eos # (Auto) Baso # (Auto) Seg Neutrophils % Seg Neuts % (Manual) Lymphocytes % (Manual) Seg Neutrophils # Seg Neutrophils # Man Lymphocytes # (Manual) D-Dimer ABG pH POC ABG pCO2 POC ABG pO2 ABG pO2 ABG HCO3 ABG O2 Saturation ABG Base Excess ABG Oxyhemoglobin ABG Sodium ABG Chloride ABG Glucose Oxyhemoglobin Carboxyhemoglobin Sodium Potassium Chloride Carbon Dioxide BUN Creatinine Glucose POC Glucose 114 H 188 H 136 H Hemoglobin A1c Magnesium Ferritin AST ALT Alkaline Phosphatase Lactate Dehydrogenase C-Reactive Protein Total Protein Albumin Arterial Blood Glucose Coronavirus (PCR) 04/27/21 04/27/21 04/28/21 17:34 22:12 08:26 WBC MCV MCH MCHC RDW Lymph % (Auto) [place] % (Auto) Eos % (Auto) Lymph # (Auto) [place] # (Auto) Eos # (Auto) Baso # (Auto) Seg Neutrophils % Seg Neuts % (Manual) Lymphocytes % (Manual) Seg Neutrophils # Seg Neutrophils # Man Lymphocytes # (Manual) D-Dimer ABG pH POC ABG pCO2 POC ABG pO2 ABG pO2 ABG HCO3 ABG O2 Saturation ABG Base Excess ABG Oxyhemoglobin ABG Sodium ABG Chloride ABG Glucose Oxyhemoglobin Carboxyhemoglobin Sodium Potassium Chloride Carbon Dioxide BUN Creatinine Glucose POC Glucose 128 H 159 H 69 L Hemoglobin A1c Magnesium Ferritin AST ALT Alkaline Phosphatase Lactate Dehydrogenase C-Reactive Protein Total Protein Albumin Arterial Blood Glucose Coronavirus (PCR) 04/28/21 04/28/21 04/29/21 12:22 21:11 06:05 WBC MCV MCH MCHC RDW Lymph % (Auto) [place] % (Auto) Eos % (Auto) Lymph # (Auto) [place] # (Auto) Eos # (Auto) Baso # (Auto) Seg Neutrophils % Seg Neuts % (Manual) Lymphocytes % (Manual) Seg Neutrophils # Seg Neutrophils # Man Lymphocytes # (Manual) D-Dimer ABG pH POC ABG pCO2 POC ABG pO2 ABG pO2 ABG HCO3 ABG O2 Saturation ABG Base Excess ABG Oxyhemoglobin ABG Sodium ABG Chloride ABG Glucose Oxyhemoglobin Carboxyhemoglobin Sodium 132 L Potassium Chloride 94.4 L Carbon Dioxide BUN Creatinine 0.2 L D Glucose 140 H POC Glucose 141 H 171 H Hemoglobin A1c Magnesium Ferritin AST ALT Alkaline Phosphatase Lactate Dehydrogenase C-Reactive Protein Total Protein Albumin Arterial Blood Glucose Coronavirus (PCR) 04/29/21 04/29/21 04/29/21 06:05 07:24 11:36 WBC MCV MCH MCHC 35 H RDW 15.9 H Lymph % (Auto) [place] % (Auto) Eos % (Auto) Lymph # (Auto) [place] # (Auto) Eos # (Auto) Baso # (Auto) Seg Neutrophils % Seg Neuts % (Manual) Lymphocytes % (Manual) Seg Neutrophils # Seg Neutrophils # Man Lymphocytes # (Manual) D-Dimer ABG pH POC ABG pCO2 POC ABG pO2 ABG pO2 ABG HCO3 ABG O2 Saturation ABG Base Excess ABG Oxyhemoglobin ABG Sodium ABG Chloride ABG Glucose Oxyhemoglobin Carboxyhemoglobin Sodium Potassium Chloride Carbon Dioxide BUN Creatinine Glucose POC Glucose 141 H 220 H Hemoglobin A1c Magnesium Ferritin AST ALT Alkaline Phosphatase Lactate Dehydrogenase C-Reactive Protein Total Protein Albumin Arterial Blood Glucose Coronavirus (PCR) 04/29/21 04/29/21 04/29/21 14:23 15:30 17:06 WBC MCV MCH MCHC RDW Lymph % (Auto) [place] % (Auto) Eos % (Auto) Lymph # (Auto) [place] # (Auto) Eos # (Auto) Baso # (Auto) Seg Neutrophils % Seg Neuts % (Manual) Lymphocytes % (Manual) Seg Neutrophils # Seg Neutrophils # Man Lymphocytes # (Manual) D-Dimer ABG pH POC ABG pCO2 POC ABG pO2 ABG pO2 52.6 L ABG HCO3 ABG O2 Saturation 86.4 L ABG Base Excess ABG Oxyhemoglobin ABG Sodium ABG Chloride ABG Glucose Oxyhemoglobin 84.6 L Carboxyhemoglobin Sodium Potassium Chloride Carbon Dioxide BUN Creatinine Glucose POC Glucose 173 H 158 H Hemoglobin A1c Magnesium Ferritin AST ALT Alkaline Phosphatase Lactate Dehydrogenase C-Reactive Protein Total Protein Albumin Arterial Blood Glucose Coronavirus (PCR) 04/29/21 04/30/21 04/30/21 21:27 07:16 08:00 WBC MCV MCH MCHC RDW 16.1 H Lymph % (Auto) [place] % (Auto) Eos % (Auto) Lymph # (Auto) [place] # (Auto) Eos # (Auto) Baso # (Auto) Seg Neutrophils % Seg Neuts % (Manual) Lymphocytes % (Manual) Seg Neutrophils # Seg Neutrophils # Man Lymphocytes # (Manual) D-Dimer ABG pH POC ABG pCO2 POC ABG pO2 ABG pO2 ABG HCO3 ABG O2 Saturation ABG Base Excess ABG Oxyhemoglobin ABG Sodium ABG Chloride ABG Glucose Oxyhemoglobin Carboxyhemoglobin Sodium Potassium Chloride Carbon Dioxide BUN Creatinine Glucose POC Glucose 244 H 175 H Hemoglobin A1c Magnesium Ferritin AST ALT Alkaline Phosphatase Lactate Dehydrogenase C-Reactive Protein Total Protein Albumin Arterial Blood Glucose Coronavirus (PCR) 04/30/21 04/30/21 04/30/21 08:00 08:00 11:03 WBC MCV MCH MCHC RDW Lymph % (Auto) [place] % (Auto) Eos % (Auto) Lymph # (Auto) [place] # (Auto) Eos # (Auto) Baso # (Auto) Seg Neutrophils % Seg Neuts % (Manual) Lymphocytes % (Manual) Seg Neutrophils # Seg Neutrophils # Man Lymphocytes # (Manual) D-Dimer 1796.87 H ABG pH POC ABG pCO2 POC ABG pO2 ABG pO2 ABG HCO3 ABG O2 Saturation ABG Base Excess ABG Oxyhemoglobin ABG Sodium ABG Chloride ABG Glucose Oxyhemoglobin Carboxyhemoglobin Sodium 135 L Potassium Chloride 96.3 L Carbon Dioxide BUN Creatinine 0.2 L Glucose 153 H POC Glucose 183 H Hemoglobin A1c Magnesium Ferritin AST 41 H ALT 76 H Alkaline Phosphatase 160 H Lactate Dehydrogenase 522 H C-Reactive Protein Total Protein 6.1 L Albumin 3.1 L Arterial Blood Glucose Coronavirus (PCR) 08/04/30/21 05/01/21 17:04 22:17 05:39 WBC MCV MCH MCHC RDW Lymph % (Auto) [place] % (Auto) Eos % (Auto) Lymph # (Auto) [place] # (Auto) Eos # (Auto) Baso # (Auto) Seg Neutrophils % Seg Neuts % (Manual) Lymphocytes % (Manual) Seg Neutrophils # Seg Neutrophils # Man Lymphocytes # (Manual) D-Dimer ABG pH POC ABG pCO2 POC ABG pO2 ABG pO2 ABG HCO3 ABG O2 Saturation ABG Base Excess ABG Oxyhemoglobin ABG Sodium ABG Chloride ABG Glucose Oxyhemoglobin Carboxyhemoglobin Sodium 133 L Potassium Chloride 92.1 L Carbon Dioxide BUN 24 H Creatinine 0.4 L D Glucose 269 H POC Glucose 167 H 208 H Hemoglobin A1c Magnesium Ferritin AST ALT 66 H Alkaline Phosphatase 142 H Lactate Dehydrogenase C-Reactive Protein Total Protein Albumin 3.2 L Arterial Blood Glucose Coronavirus (PCR) 05/01/21 05/01/21 05/01/21 05:39 05:39 07:45 WBC MCV MCH MCHC RDW 16.0 H Lymph % (Auto) [place] % (Auto) Eos % (Auto) Lymph # (Auto) [place] # (Auto) Eos # (Auto) Baso # (Auto) Seg Neutrophils % Seg Neuts % (Manual) Lymphocytes % (Manual) Seg Neutrophils # Seg Neutrophils # Man Lymphocytes # (Manual) D-Dimer 3984.95 H ABG pH POC ABG pCO2 POC ABG pO2 ABG pO2 ABG HCO3 ABG O2 Saturation ABG Base Excess ABG Oxyhemoglobin ABG Sodium ABG Chloride ABG Glucose Oxyhemoglobin Carboxyhemoglobin Sodium Potassium Chloride Carbon Dioxide BUN Creatinine Glucose POC Glucose 229 H Hemoglobin A1c Magnesium Ferritin AST ALT Alkaline Phosphatase Lactate Dehydrogenase C-Reactive Protein Total Protein Albumin Arterial Blood Glucose Coronavirus (PCR) 05/01/21 05/01/21 05/01/21 12:10 15:46 21:06 WBC MCV MCH MCHC RDW Lymph % (Auto) [place] % (Auto) Eos % (Auto) Lymph # (Auto) [place] # (Auto) Eos # (Auto) Baso # (Auto) Seg Neutrophils % Seg Neuts % (Manual) Lymphocytes % (Manual) Seg Neutrophils # Seg Neutrophils # Man Lymphocytes # (Manual) D-Dimer ABG pH POC ABG pCO2 POC ABG pO2 ABG pO2 ABG HCO3 ABG O2 Saturation ABG Base Excess ABG Oxyhemoglobin ABG Sodium ABG Chloride ABG Glucose Oxyhemoglobin Carboxyhemoglobin Sodium Potassium Chloride Carbon Dioxide BUN Creatinine Glucose POC Glucose 296 H 279 H 232 H Hemoglobin A1c Magnesium Ferritin AST ALT Alkaline Phosphatase Lactate Dehydrogenase C-Reactive Protein Total Protein Albumin Arterial Blood Glucose Coronavirus (PCR) 05/02/21 05/02/21 05/02/21 04:55 04:55 04:55 WBC MCV MCH MCHC RDW 16.1 H Lymph % (Auto) [place] % (Auto) Eos % (Auto) Lymph # (Auto) [place] # (Auto) Eos # (Auto) Baso # (Auto) Seg Neutrophils % Seg Neuts % (Manual) Lymphocytes % (Manual) Seg Neutrophils # Seg Neutrophils # Man Lymphocytes # (Manual) D-Dimer 1401.08 H ABG pH POC ABG pCO2 POC ABG pO2 ABG pO2 ABG HCO3 ABG O2 Saturation ABG Base Excess ABG Oxyhemoglobin ABG Sodium ABG Chloride ABG Glucose Oxyhemoglobin Carboxyhemoglobin Sodium 131 L Potassium Chloride 95.5 L Carbon Dioxide BUN 20 H Creatinine 0.3 L Glucose 288 H POC Glucose Hemoglobin A1c Magnesium Ferritin AST ALT Alkaline Phosphatase Lactate Dehydrogenase C-Reactive Protein Total Protein 6.0 L Albumin 3.1 L Arterial Blood Glucose Coronavirus (PCR) 05/02/21 05/02/21 05/02/21 07:53 11:45 15:25 WBC MCV MCH MCHC RDW Lymph % (Auto) [place] % (Auto) Eos % (Auto) Lymph # (Auto) [place] # (Auto) Eos # (Auto) Baso # (Auto) Seg Neutrophils % Seg Neuts % (Manual) Lymphocytes % (Manual) Seg Neutrophils # Seg Neutrophils # Man Lymphocytes # (Manual) D-Dimer ABG pH POC ABG pCO2 POC ABG pO2 ABG pO2 ABG HCO3 ABG O2 Saturation ABG Base Excess ABG Oxyhemoglobin ABG Sodium ABG Chloride ABG Glucose Oxyhemoglobin Carboxyhemoglobin Sodium Potassium Chloride Carbon Dioxide BUN Creatinine Glucose POC Glucose 180 H 228 H 275 H Hemoglobin A1c Magnesium Ferritin AST ALT Alkaline Phosphatase Lactate Dehydrogenase C-Reactive Protein Total Protein Albumin Arterial Blood Glucose Coronavirus (PCR) 05/02/21 05/03/21 05/03/21 22:56 04:30 04:49 WBC MCV MCH MCHC RDW Lymph % (Auto) [place] % (Auto) Eos % (Auto) Lymph # (Auto) [place] # (Auto) Eos # (Auto) Baso # (Auto) Seg Neutrophils % Seg Neuts % (Manual) Lymphocytes % (Manual) Seg Neutrophils # Seg Neutrophils # Man Lymphocytes # (Manual) D-Dimer ABG pH 7.229 L POC ABG pCO2 POC ABG pO2 65.3 L ABG pO2 ABG HCO3 ABG O2 Saturation ABG Base Excess ABG Oxyhemoglobin 87.8 L ABG Sodium 133.0 L ABG Chloride 97.0 L ABG Glucose 403 H Oxyhemoglobin Carboxyhemoglobin Sodium 130 L Potassium Chloride 94.9 L Carbon Dioxide BUN 20 H Creatinine 0.5 L D Glucose 359 H POC Glucose 293 H Hemoglobin A1c Magnesium Ferritin AST 54 H ALT 75 H Alkaline Phosphatase 138 H Lactate Dehydrogenase C-Reactive Protein Total Protein Albumin 3.6 L Arterial Blood Glucose 403 H Coronavirus (PCR) 05/03/21 05/03/21 05/03/21 05:27 11:26 17:57 WBC MCV MCH MCHC RDW Lymph % (Auto) [place] % (Auto) Eos % (Auto) Lymph # (Auto) [place] # (Auto) Eos # (Auto) Baso # (Auto) Seg Neutrophils % Seg Neuts % (Manual) Lymphocytes % (Manual) Seg Neutrophils # Seg Neutrophils # Man Lymphocytes # (Manual) D-Dimer ABG pH POC ABG pCO2 POC ABG pO2 ABG pO2 ABG HCO3 ABG O2 Saturation ABG Base Excess ABG Oxyhemoglobin ABG Sodium ABG Chloride ABG Glucose Oxyhemoglobin Carboxyhemoglobin Sodium Potassium Chloride Carbon Dioxide BUN Creatinine Glucose POC Glucose 361 H 297 H 226 H Hemoglobin A1c Magnesium Ferritin AST ALT Alkaline Phosphatase Lactate Dehydrogenase C-Reactive Protein Total Protein Albumin Arterial Blood Glucose Coronavirus (PCR) 05/03/21 05/04/21 05/04/21 23:12 05:12 07:30 WBC MCV MCH MCHC RDW Lymph % (Auto) [place] % (Auto) Eos % (Auto) Lymph # (Auto) [place] # (Auto) Eos # (Auto) Baso # (Auto) Seg Neutrophils % Seg Neuts % (Manual) Lymphocytes % (Manual) Seg Neutrophils # Seg Neutrophils # Man Lymphocytes # (Manual) D-Dimer ABG pH POC ABG pCO2 POC ABG pO2 ABG pO2 ABG HCO3 ABG O2 Saturation ABG Base Excess ABG Oxyhemoglobin ABG Sodium ABG Chloride ABG Glucose Oxyhemoglobin Carboxyhemoglobin Sodium Potassium Chloride Carbon Dioxide BUN Creatinine Glucose POC Glucose 282 H 285 H 254 H Hemoglobin A1c Magnesium Ferritin AST ALT Alkaline Phosphatase Lactate Dehydrogenase C-Reactive Protein Total Protein Albumin Arterial Blood Glucose Coronavirus (PCR) 05/04/21 05/04/21 05/04/21 08:58 11:45 16:07 WBC MCV MCH MCHC RDW Lymph % (Auto) [place] % (Auto) Eos % (Auto) Lymph # (Auto) [place] # (Auto) Eos # (Auto) Baso # (Auto) Seg Neutrophils % Seg Neuts % (Manual) Lymphocytes % (Manual) Seg Neutrophils # Seg Neutrophils # Man Lymphocytes # (Manual) D-Dimer ABG pH POC ABG pCO2 POC ABG pO2 ABG pO2 ABG HCO3 ABG O2 Saturation ABG Base Excess ABG Oxyhemoglobin ABG Sodium ABG Chloride ABG Glucose Oxyhemoglobin Carboxyhemoglobin Sodium 134 L Potassium Chloride Carbon Dioxide BUN 20 H Creatinine 0.3 L Glucose 267 H POC Glucose 244 H 297 H Hemoglobin A1c Magnesium Ferritin AST ALT Alkaline Phosphatase Lactate Dehydrogenase C-Reactive Protein Total Protein 6.0 L Albumin 3.2 L Arterial Blood Glucose Coronavirus (PCR) 05/04/21 05/05/21 05/05/21 23:32 05:00 05:13 WBC MCV MCH MCHC RDW Lymph % (Auto) [place] % (Auto) Eos % (Auto) Lymph # (Auto) [place] # (Auto) Eos # (Auto) Baso # (Auto) Seg Neutrophils % Seg Neuts % (Manual) Lymphocytes % (Manual) Seg Neutrophils # Seg Neutrophils # Man Lymphocytes # (Manual) D-Dimer ABG pH POC ABG pCO2 POC ABG pO2 ABG pO2 ABG HCO3 ABG O2 Saturation ABG Base Excess ABG Oxyhemoglobin ABG Sodium ABG Chloride ABG Glucose Oxyhemoglobin Carboxyhemoglobin Sodium 132 L Potassium Chloride 96.4 L Carbon Dioxide BUN 22 H Creatinine 0.3 L Glucose 228 H POC Glucose 154 H 260 H Hemoglobin A1c Magnesium Ferritin AST ALT 67 H Alkaline Phosphatase Lactate Dehydrogenase C-Reactive Protein Total Protein 6.1 L Albumin 3.2 L Arterial Blood Glucose Coronavirus (PCR) 05/05/21 05/05/21 05/05/21 11:32 17:49 23:07 WBC MCV MCH MCHC RDW Lymph % (Auto) [place] % (Auto) Eos % (Auto) Lymph # (Auto) [place] # (Auto) Eos # (Auto) Baso # (Auto) Seg Neutrophils % Seg Neuts % (Manual) Lymphocytes % (Manual) Seg Neutrophils # Seg Neutrophils # Man Lymphocytes # (Manual) D-Dimer ABG pH POC ABG pCO2 POC ABG pO2 ABG pO2 ABG HCO3 ABG O2 Saturation ABG Base Excess ABG Oxyhemoglobin ABG Sodium ABG Chloride ABG Glucose Oxyhemoglobin Carboxyhemoglobin Sodium Potassium Chloride Carbon Dioxide BUN Creatinine Glucose POC Glucose 279 H 308 H 213 H Hemoglobin A1c Magnesium Ferritin AST ALT Alkaline Phosphatase Lactate Dehydrogenase C-Reactive Protein Total Protein Albumin Arterial Blood Glucose Coronavirus (PCR) 05/06/21 05/06/21 05/06/21 05:00 05:00 05:20 WBC MCV MCH MCHC RDW 16.8 H Lymph % (Auto) [place] % (Auto) Eos % (Auto) Lymph # (Auto) [place] # (Auto) Eos # (Auto) Baso # (Auto) Seg Neutrophils % Seg Neuts % (Manual) 99.0 H Lymphocytes % (Manual) Seg Neutrophils # Seg Neutrophils # Man 10.9 H Lymphocytes # (Manual) 0.0 L D-Dimer ABG pH POC ABG pCO2 POC ABG pO2 ABG pO2 ABG HCO3 ABG O2 Saturation ABG Base Excess ABG Oxyhemoglobin ABG Sodium ABG Chloride ABG Glucose Oxyhemoglobin Carboxyhemoglobin Sodium 133 L Potassium Chloride Carbon Dioxide BUN 21 H Creatinine 0.3 L Glucose 259 H POC Glucose 308 H Hemoglobin A1c Magnesium Ferritin AST ALT Alkaline Phosphatase Lactate Dehydrogenase C-Reactive Protein Total Protein Albumin 3.2 L Arterial Blood Glucose Coronavirus (PCR) 05/06/21 05/06/21 05/06/21 11:24 17:54 21:32 WBC MCV MCH MCHC RDW Lymph % (Auto) [place] % (Auto) Eos % (Auto) Lymph # (Auto) [place] # (Auto) Eos # (Auto) Baso # (Auto) Seg Neutrophils % Seg Neuts % (Manual) Lymphocytes % (Manual) Seg Neutrophils # Seg Neutrophils # Man Lymphocytes # (Manual) D-Dimer ABG pH POC ABG pCO2 POC ABG pO2 ABG pO2 ABG HCO3 ABG O2 Saturation ABG Base Excess ABG Oxyhemoglobin ABG Sodium ABG Chloride ABG Glucose Oxyhemoglobin Carboxyhemoglobin Sodium Potassium Chloride Carbon Dioxide BUN Creatinine Glucose POC Glucose 262 H 124 H 246 H Hemoglobin A1c Magnesium Ferritin AST ALT Alkaline Phosphatase Lactate Dehydrogenase C-Reactive Protein Total Protein Albumin Arterial Blood Glucose Coronavirus (PCR) 05/06/21 05/07/21 05/07/21 23:10 04:54 04:54 WBC MCV MCH MCHC RDW Lymph % (Auto) [place] % (Auto) Eos % (Auto) Lymph # (Auto) [place] # (Auto) Eos # (Auto) Baso # (Auto) Seg Neutrophils % Seg Neuts % (Manual) Lymphocytes % (Manual) Seg Neutrophils # Seg Neutrophils # Man Lymphocytes # (Manual) D-Dimer 1609.28 H ABG pH POC ABG pCO2 POC ABG pO2 ABG pO2 ABG HCO3 ABG O2 Saturation ABG Base Excess ABG Oxyhemoglobin ABG Sodium ABG Chloride ABG Glucose Oxyhemoglobin Carboxyhemoglobin Sodium 136 L Potassium Chloride Carbon Dioxide BUN 23 H Creatinine 0.3 L Glucose 110 H POC Glucose 249 H Hemoglobin A1c Magnesium Ferritin AST ALT Alkaline Phosphatase Lactate Dehydrogenase C-Reactive Protein Total Protein 6.2 L Albumin 3.0 L Arterial Blood Glucose Coronavirus (PCR) 05/07/21 05/07/21 05/07/21 04:54 04:54 11:41 WBC MCV MCH MCHC RDW Lymph % (Auto) [place] % (Auto) Eos % (Auto) Lymph # (Auto) [place] # (Auto) Eos # (Auto) Baso # (Auto) Seg Neutrophils % Seg Neuts % (Manual) Lymphocytes % (Manual) Seg Neutrophils # Seg Neutrophils # Man Lymphocytes # (Manual) D-Dimer ABG pH POC ABG pCO2 POC ABG pO2 ABG pO2 ABG HCO3 ABG O2 Saturation ABG Base Excess ABG Oxyhemoglobin ABG Sodium ABG Chloride ABG Glucose Oxyhemoglobin Carboxyhemoglobin Sodium Potassium Chloride Carbon Dioxide BUN Creatinine Glucose POC Glucose 118 H Hemoglobin A1c Magnesium Ferritin 296.1 H AST ALT Alkaline Phosphatase Lactate Dehydrogenase 724 H C-Reactive Protein Total Protein Albumin Arterial Blood Glucose Coronavirus (PCR) 05/07/21 05/07/21 05/08/21 16:43 22:34 06:44 WBC MCV MCH MCHC RDW Lymph % (Auto) [place] % (Auto) Eos % (Auto) Lymph # (Auto) [place] # (Auto) Eos # (Auto) Baso # (Auto) Seg Neutrophils % Seg Neuts % (Manual) Lymphocytes % (Manual) Seg Neutrophils # Seg Neutrophils # Man Lymphocytes # (Manual) D-Dimer ABG pH POC ABG pCO2 POC ABG pO2 ABG pO2 ABG HCO3 ABG O2 Saturation ABG Base Excess ABG Oxyhemoglobin ABG Sodium ABG Chloride ABG Glucose Oxyhemoglobin Carboxyhemoglobin Sodium Potassium Chloride Carbon Dioxide BUN Creatinine Glucose POC Glucose 159 H 233 H 235 H Hemoglobin A1c Magnesium Ferritin AST ALT Alkaline Phosphatase Lactate Dehydrogenase C-Reactive Protein Total Protein Albumin Arterial Blood Glucose Coronavirus (PCR) 05/08/21 05/08/21 05/08/21 07:49 11:56 17:13 WBC MCV MCH MCHC RDW Lymph % (Auto) [place] % (Auto) Eos % (Auto) Lymph # (Auto) [place] # (Auto) Eos # (Auto) Baso # (Auto) Seg Neutrophils % Seg Neuts % (Manual) Lymphocytes % (Manual) Seg Neutrophils # Seg Neutrophils # Man Lymphocytes # (Manual) D-Dimer ABG pH POC ABG pCO2 POC ABG pO2 ABG pO2 ABG HCO3 ABG O2 Saturation ABG Base Excess ABG Oxyhemoglobin ABG Sodium ABG Chloride ABG Glucose Oxyhemoglobin Carboxyhemoglobin Sodium Potassium Chloride Carbon Dioxide BUN Creatinine Glucose POC Glucose 219 H 184 H 182 H Hemoglobin A1c Magnesium Ferritin AST ALT Alkaline Phosphatase Lactate Dehydrogenase C-Reactive Protein Total Protein Albumin Arterial Blood Glucose Coronavirus (PCR) 05/08/21 05/09/21 05/09/21 23:35 05:20 05:20 WBC MCV MCH MCHC RDW Lymph % (Auto) [place] % (Auto) Eos % (Auto) Lymph # (Auto) [place] # (Auto) Eos # (Auto) Baso # (Auto) Seg Neutrophils % Seg Neuts % (Manual) Lymphocytes % (Manual) Seg Neutrophils # Seg Neutrophils # Man Lymphocytes # (Manual) D-Dimer 1003.87 H ABG pH POC ABG pCO2 POC ABG pO2 ABG pO2 ABG HCO3 ABG O2 Saturation ABG Base Excess ABG Oxyhemoglobin ABG Sodium ABG Chloride ABG Glucose Oxyhemoglobin Carboxyhemoglobin Sodium Potassium Chloride Carbon Dioxide BUN Creatinine Glucose POC Glucose 198 H Hemoglobin A1c Magnesium Ferritin 378.7 H AST ALT Alkaline Phosphatase Lactate Dehydrogenase C-Reactive Protein Total Protein Albumin Arterial Blood Glucose Coronavirus (PCR) 05/09/21 05/09/21 05/09/21 05:20 06:04 12:53 WBC MCV MCH MCHC RDW Lymph % (Auto) [place] % (Auto) Eos % (Auto) Lymph # (Auto) [place] # (Auto) Eos # (Auto) Baso # (Auto) Seg Neutrophils % Seg Neuts % (Manual) Lymphocytes % (Manual) Seg Neutrophils # Seg Neutrophils # Man Lymphocytes # (Manual) D-Dimer ABG pH POC ABG pCO2 POC ABG pO2 ABG pO2 ABG HCO3 ABG O2 Saturation ABG Base Excess ABG Oxyhemoglobin ABG Sodium ABG Chloride ABG Glucose Oxyhemoglobin Carboxyhemoglobin Sodium Potassium Chloride Carbon Dioxide BUN Creatinine Glucose POC Glucose 159 H 180 H Hemoglobin A1c Magnesium Ferritin AST ALT Alkaline Phosphatase Lactate Dehydrogenase 558 H C-Reactive Protein 2.40 H Total Protein Albumin Arterial Blood Glucose Coronavirus (PCR) 05/09/21 05/09/21 05/10/21 16:43 21:27 10:18 WBC MCV MCH MCHC RDW Lymph % (Auto) [place] % (Auto) Eos % (Auto) Lymph # (Auto) [place] # (Auto) Eos # (Auto) Baso # (Auto) Seg Neutrophils % Seg Neuts % (Manual) Lymphocytes % (Manual) Seg Neutrophils # Seg Neutrophils # Man Lymphocytes # (Manual) D-Dimer ABG pH POC ABG pCO2 POC ABG pO2 ABG pO2 ABG HCO3 ABG O2 Saturation ABG Base Excess ABG Oxyhemoglobin ABG Sodium ABG Chloride ABG Glucose Oxyhemoglobin Carboxyhemoglobin Sodium Potassium Chloride Carbon Dioxide BUN Creatinine Glucose POC Glucose 212 H 285 H 261 H Hemoglobin A1c Magnesium Ferritin AST ALT Alkaline Phosphatase Lactate Dehydrogenase C-Reactive Protein Total Protein Albumin Arterial Blood Glucose Coronavirus (PCR) 05/10/21 05/10/21 05/11/21 17:58 18:02 00:29 WBC MCV MCH MCHC RDW Lymph % (Auto) [place] % (Auto) Eos % (Auto) Lymph # (Auto) [place] # (Auto) Eos # (Auto) Baso # (Auto) Seg Neutrophils % Seg Neuts % (Manual) Lymphocytes % (Manual) Seg Neutrophils # Seg Neutrophils # Man Lymphocytes # (Manual) D-Dimer ABG pH POC ABG pCO2 POC ABG pO2 ABG pO2 ABG HCO3 ABG O2 Saturation ABG Base Excess ABG Oxyhemoglobin ABG Sodium ABG Chloride ABG Glucose Oxyhemoglobin Carboxyhemoglobin Sodium Potassium Chloride Carbon Dioxide BUN Creatinine Glucose POC Glucose 213 H 179 H 149 H Hemoglobin A1c Magnesium Ferritin AST ALT Alkaline Phosphatase Lactate Dehydrogenase C-Reactive Protein Total Protein Albumin Arterial Blood Glucose Coronavirus (PCR) 05/11/21 05/11/21 05/11/21 05:22 11:32 17:00 WBC 14.9 H MCV MCH MCHC RDW 18.9 H Lymph % (Auto) 4.9 L [place] % (Auto) Eos % (Auto) Lymph # (Auto) 0.7 L [place] # (Auto) Eos # (Auto) Baso # (Auto) 0.2 H Seg Neutrophils % Seg Neuts % (Manual) Lymphocytes % (Manual) Seg Neutrophils # 13.3 H Seg Neutrophils # Man Lymphocytes # (Manual) D-Dimer ABG pH POC ABG pCO2 POC ABG pO2 ABG pO2 ABG HCO3 ABG O2 Saturation ABG Base Excess ABG Oxyhemoglobin ABG Sodium ABG Chloride ABG Glucose Oxyhemoglobin Carboxyhemoglobin Sodium Potassium Chloride Carbon Dioxide BUN Creatinine Glucose POC Glucose 162 H 179 H Hemoglobin A1c Magnesium Ferritin AST ALT Alkaline Phosphatase Lactate Dehydrogenase C-Reactive Protein Total Protein Albumin Arterial Blood Glucose Coronavirus (PCR) 05/11/21 05/11/21 05/11/21 17:00 17:33 22:03 WBC MCV MCH MCHC RDW Lymph % (Auto) [place] % (Auto) Eos % (Auto) Lymph # (Auto) [place] # (Auto) Eos # (Auto) Baso # (Auto) Seg Neutrophils % Seg Neuts % (Manual) Lymphocytes % (Manual) Seg Neutrophils # Seg Neutrophils # Man Lymphocytes # (Manual) D-Dimer ABG pH POC ABG pCO2 POC ABG pO2 ABG pO2 ABG HCO3 ABG O2 Saturation ABG Base Excess ABG Oxyhemoglobin ABG Sodium ABG Chloride ABG Glucose Oxyhemoglobin Carboxyhemoglobin Sodium 135 L Potassium Chloride 97.3 L Carbon Dioxide BUN 21 H Creatinine 0.3 L Glucose 133 H POC Glucose 140 H 282 H Hemoglobin A1c Magnesium Ferritin AST ALT 60 H Alkaline Phosphatase Lactate Dehydrogenase C-Reactive Protein Total Protein Albumin 3.1 L Arterial Blood Glucose Coronavirus (PCR) 05/12/21 05/12/21 05/12/21 04:05 04:05 04:05 WBC MCV MCH MCHC RDW 18.4 H Lymph % (Auto) [place] % (Auto) Eos % (Auto) Lymph # (Auto) [place] # (Auto) Eos # (Auto) Baso # (Auto) Seg Neutrophils % Seg Neuts % (Manual) 94.0 H Lymphocytes % (Manual) 4.0 L Seg Neutrophils # Seg Neutrophils # Man Lymphocytes # (Manual) 0.3 L D-Dimer ABG pH POC ABG pCO2 POC ABG pO2 ABG pO2 ABG HCO3 ABG O2 Saturation ABG Base Excess ABG Oxyhemoglobin ABG Sodium ABG Chloride ABG Glucose Oxyhemoglobin Carboxyhemoglobin Sodium 136 L Potassium Chloride Carbon Dioxide BUN 18 H Creatinine 0.2 L Glucose 142 H POC Glucose Hemoglobin A1c Magnesium Ferritin 350.7 H AST ALT Alkaline Phosphatase Lactate Dehydrogenase 546 H C-Reactive Protein Total Protein 6.1 L Albumin 3.0 L Arterial Blood Glucose Coronavirus (PCR) 05/12/21 05/12/21 05/12/21 05:11 11:17 16:27 WBC MCV MCH MCHC RDW Lymph % (Auto) [place] % (Auto) Eos % (Auto) Lymph # (Auto) [place] # (Auto) Eos # (Auto) Baso # (Auto) Seg Neutrophils % Seg Neuts % (Manual) Lymphocytes % (Manual) Seg Neutrophils # Seg Neutrophils # Man Lymphocytes # (Manual) D-Dimer ABG pH POC ABG pCO2 POC ABG pO2 ABG pO2 ABG HCO3 ABG O2 Saturation ABG Base Excess ABG Oxyhemoglobin ABG Sodium ABG Chloride ABG Glucose Oxyhemoglobin Carboxyhemoglobin Sodium Potassium Chloride Carbon Dioxide BUN Creatinine Glucose POC Glucose 152 H 190 H 261 H Hemoglobin A1c Magnesium Ferritin AST ALT Alkaline Phosphatase Lactate Dehydrogenase C-Reactive Protein Total Protein Albumin Arterial Blood Glucose Coronavirus (PCR) 05/12/21 05/13/21 05/13/21 20:55 11:08 21:41 WBC MCV MCH MCHC RDW Lymph % (Auto) [place] % (Auto) Eos % (Auto) Lymph # (Auto) [place] # (Auto) Eos # (Auto) Baso # (Auto) Seg Neutrophils % Seg Neuts % (Manual) Lymphocytes % (Manual) Seg Neutrophils # Seg Neutrophils # Man Lymphocytes # (Manual) D-Dimer ABG pH POC ABG pCO2 POC ABG pO2 ABG pO2 ABG HCO3 ABG O2 Saturation ABG Base Excess ABG Oxyhemoglobin ABG Sodium ABG Chloride ABG Glucose Oxyhemoglobin Carboxyhemoglobin Sodium Potassium Chloride Carbon Dioxide BUN Creatinine Glucose POC Glucose 231 H 106 H 174 H Hemoglobin A1c Magnesium Ferritin AST ALT Alkaline Phosphatase Lactate Dehydrogenase C-Reactive Protein Total Protein Albumin Arterial Blood Glucose Coronavirus (PCR) 05/14/21 05/14/21 05/14/21 00:53 02:23 06:06 WBC MCV MCH MCHC RDW Lymph % (Auto) [place] % (Auto) Eos % (Auto) Lymph # (Auto) [place] # (Auto) Eos # (Auto) Baso # (Auto) Seg Neutrophils % Seg Neuts % (Manual) Lymphocytes % (Manual) Seg Neutrophils # Seg Neutrophils # Man Lymphocytes # (Manual) D-Dimer ABG pH POC ABG pCO2 POC ABG pO2 ABG pO2 130.3 H ABG HCO3 30.6 H ABG O2 Saturation ABG Base Excess 4.9 H ABG Oxyhemoglobin ABG Sodium ABG Chloride ABG Glucose Oxyhemoglobin Carboxyhemoglobin Sodium Potassium Chloride Carbon Dioxide BUN Creatinine Glucose POC Glucose 229 H 119 H Hemoglobin A1c Magnesium Ferritin AST ALT Alkaline Phosphatase Lactate Dehydrogenase C-Reactive Protein Total Protein Albumin Arterial Blood Glucose Coronavirus (PCR) 05/14/21 05/14/21 05/14/21 07:13 07:13 07:13 WBC MCV MCH MCHC RDW Lymph % (Auto) [place] % (Auto) Eos % (Auto) Lymph # (Auto) [place] # (Auto) Eos # (Auto) Baso # (Auto) Seg Neutrophils % Seg Neuts % (Manual) Lymphocytes % (Manual) Seg Neutrophils # Seg Neutrophils # Man Lymphocytes # (Manual) D-Dimer 712.80 H ABG pH POC ABG pCO2 POC ABG pO2 ABG pO2 ABG HCO3 ABG O2 Saturation ABG Base Excess ABG Oxyhemoglobin ABG Sodium ABG Chloride ABG Glucose Oxyhemoglobin Carboxyhemoglobin Sodium 133 L Potassium Chloride 95.5 L Carbon Dioxide 32 H BUN Creatinine 0.2 L Glucose 137 H POC Glucose Hemoglobin A1c Magnesium Ferritin 283.5 H AST ALT 63 H Alkaline Phosphatase Lactate Dehydrogenase 563 H C-Reactive Protein Total Protein 6.1 L Albumin 3.0 L Arterial Blood Glucose Coronavirus (PCR) 05/14/21 05/14/21 05/14/21 12:21 15:33 21:50 WBC MCV MCH MCHC RDW Lymph % (Auto) [place] % (Auto) Eos % (Auto) Lymph # (Auto) [place] # (Auto) Eos # (Auto) Baso # (Auto) Seg Neutrophils % Seg Neuts % (Manual) Lymphocytes % (Manual) Seg Neutrophils # Seg Neutrophils # Man Lymphocytes # (Manual) D-Dimer ABG pH POC ABG pCO2 POC ABG pO2 ABG pO2 ABG HCO3 ABG O2 Saturation ABG Base Excess ABG Oxyhemoglobin ABG Sodium ABG Chloride ABG Glucose Oxyhemoglobin Carboxyhemoglobin Sodium Potassium Chloride Carbon Dioxide BUN Creatinine Glucose POC Glucose 143 H 204 H 202 H Hemoglobin A1c Magnesium Ferritin AST ALT Alkaline Phosphatase Lactate Dehydrogenase C-Reactive Protein Total Protein Albumin Arterial Blood Glucose Coronavirus (PCR) 05/15/21 05/15/21 05/15/21 05:05 11:12 16:39 WBC MCV MCH MCHC RDW Lymph % (Auto) [place] % (Auto) Eos % (Auto) Lymph # (Auto) [place] # (Auto) Eos # (Auto) Baso # (Auto) Seg Neutrophils % Seg Neuts % (Manual) Lymphocytes % (Manual) Seg Neutrophils # Seg Neutrophils # Man Lymphocytes # (Manual) D-Dimer ABG pH POC ABG pCO2 POC ABG pO2 ABG pO2 ABG HCO3 ABG O2 Saturation ABG Base Excess ABG Oxyhemoglobin ABG Sodium ABG Chloride ABG Glucose Oxyhemoglobin Carboxyhemoglobin Sodium Potassium Chloride Carbon Dioxide BUN Creatinine Glucose POC Glucose 125 H 201 H 241 H Hemoglobin A1c Magnesium Ferritin AST ALT Alkaline Phosphatase Lactate Dehydrogenase C-Reactive Protein Total Protein Albumin Arterial Blood Glucose Coronavirus (PCR) 05/15/21 05/16/21 05/16/21 21:31 05:04 10:40 WBC MCV MCH MCHC RDW Lymph % (Auto) [place] % (Auto) Eos % (Auto) Lymph # (Auto) [place] # (Auto) Eos # (Auto) Baso # (Auto) Seg Neutrophils % Seg Neuts % (Manual) Lymphocytes % (Manual) Seg Neutrophils # Seg Neutrophils # Man Lymphocytes # (Manual) D-Dimer ABG pH POC ABG pCO2 POC ABG pO2 ABG pO2 ABG HCO3 ABG O2 Saturation ABG Base Excess ABG Oxyhemoglobin ABG Sodium ABG Chloride ABG Glucose Oxyhemoglobin Carboxyhemoglobin Sodium Potassium Chloride Carbon Dioxide BUN Creatinine Glucose POC Glucose 234 H 123 H 231 H Hemoglobin A1c Magnesium Ferritin AST ALT Alkaline Phosphatase Lactate Dehydrogenase C-Reactive Protein Total Protein Albumin Arterial Blood Glucose Coronavirus (PCR) 05/16/21 05/16/21 05/17/21 18:23 21:29 06:20 WBC MCV MCH MCHC RDW 18.8 H Lymph % (Auto) 10.2 L [place] % (Auto) Eos % (Auto) Lymph # (Auto) 0.8 L [place] # (Auto) Eos # (Auto) Baso # (Auto) Seg Neutrophils % 85.8 H Seg Neuts % (Manual) Lymphocytes % (Manual) Seg Neutrophils # Seg Neutrophils # Man Lymphocytes # (Manual) D-Dimer ABG pH POC ABG pCO2 POC ABG pO2 ABG pO2 ABG HCO3 ABG O2 Saturation ABG Base Excess ABG Oxyhemoglobin ABG Sodium ABG Chloride ABG Glucose Oxyhemoglobin Carboxyhemoglobin Sodium Potassium Chloride Carbon Dioxide BUN Creatinine Glucose POC Glucose 266 H 234 H Hemoglobin A1c Magnesium Ferritin AST ALT Alkaline Phosphatase Lactate Dehydrogenase C-Reactive Protein Total Protein Albumin Arterial Blood Glucose Coronavirus (PCR) 05/17/21 05/17/21 05/17/21 06:20 11:06 16:36 WBC MCV MCH MCHC RDW Lymph % (Auto) [place] % (Auto) Eos % (Auto) Lymph # (Auto) [place] # (Auto) Eos # (Auto) Baso # (Auto) Seg Neutrophils % Seg Neuts % (Manual) Lymphocytes % (Manual) Seg Neutrophils # Seg Neutrophils # Man Lymphocytes # (Manual) D-Dimer ABG pH POC ABG pCO2 POC ABG pO2 ABG pO2 ABG HCO3 ABG O2 Saturation ABG Base Excess ABG Oxyhemoglobin ABG Sodium ABG Chloride ABG Glucose Oxyhemoglobin Carboxyhemoglobin Sodium Potassium Chloride Carbon Dioxide 33 H BUN Creatinine 0.2 L Glucose 101 H POC Glucose 209 H 180 H Hemoglobin A1c Magnesium Ferritin AST ALT Alkaline Phosphatase Lactate Dehydrogenase C-Reactive Protein Total Protein Albumin Arterial Blood Glucose Coronavirus (PCR) 05/17/21 05/18/21 05/18/21 21:06 12:00 15:06 WBC MCV MCH MCHC RDW Lymph % (Auto) [place] % (Auto) Eos % (Auto) Lymph # (Auto) [place] # (Auto) Eos # (Auto) Baso # (Auto) Seg Neutrophils % Seg Neuts % (Manual) Lymphocytes % (Manual) Seg Neutrophils # Seg Neutrophils # Man Lymphocytes # (Manual) D-Dimer 874.02 H ABG pH POC ABG pCO2 POC ABG pO2 ABG pO2 ABG HCO3 ABG O2 Saturation ABG Base Excess ABG Oxyhemoglobin ABG Sodium ABG Chloride ABG Glucose Oxyhemoglobin Carboxyhemoglobin Sodium Potassium Chloride Carbon Dioxide BUN Creatinine Glucose POC Glucose 256 H 139 H Hemoglobin A1c Magnesium Ferritin AST ALT Alkaline Phosphatase Lactate Dehydrogenase C-Reactive Protein Total Protein Albumin Arterial Blood Glucose Coronavirus (PCR) 05/18/21 05/18/21 05/18/21 15:06 15:06 16:08 WBC MCV MCH MCHC RDW Lymph % (Auto) [place] % (Auto) Eos % (Auto) Lymph # (Auto) [place] # (Auto) Eos # (Auto) Baso # (Auto) Seg Neutrophils % Seg Neuts % (Manual) Lymphocytes % (Manual) Seg Neutrophils # Seg Neutrophils # Man Lymphocytes # (Manual) D-Dimer ABG pH POC ABG pCO2 POC ABG pO2 ABG pO2 ABG HCO3 ABG O2 Saturation ABG Base Excess ABG Oxyhemoglobin ABG Sodium ABG Chloride ABG Glucose Oxyhemoglobin Carboxyhemoglobin Sodium Potassium Chloride Carbon Dioxide BUN Creatinine Glucose POC Glucose 178 H Hemoglobin A1c Magnesium Ferritin 289.6 H AST ALT Alkaline Phosphatase Lactate Dehydrogenase 605 H C-Reactive Protein Total Protein Albumin Arterial Blood Glucose Coronavirus (PCR) 05/18/21 05/19/21 05/19/21 21:22 11:57 15:26 WBC MCV MCH MCHC RDW Lymph % (Auto) [place] % (Auto) Eos % (Auto) Lymph # (Auto) [place] # (Auto) Eos # (Auto) Baso # (Auto) Seg Neutrophils % Seg Neuts % (Manual) Lymphocytes % (Manual) Seg Neutrophils # Seg Neutrophils # Man Lymphocytes # (Manual) D-Dimer ABG pH POC ABG pCO2 POC ABG pO2 ABG pO2 ABG HCO3 ABG O2 Saturation ABG Base Excess ABG Oxyhemoglobin ABG Sodium ABG Chloride ABG Glucose Oxyhemoglobin Carboxyhemoglobin Sodium Potassium Chloride Carbon Dioxide BUN Creatinine Glucose POC Glucose 241 H 201 H 209 H Hemoglobin A1c Magnesium Ferritin AST ALT Alkaline Phosphatase Lactate Dehydrogenase C-Reactive Protein Total Protein Albumin Arterial Blood Glucose Coronavirus (PCR) 05/19/21 05/20/21 05/20/21 20:59 07:38 08:01 WBC MCV MCH MCHC RDW 19.7 H Lymph % (Auto) 8.3 L [place] % (Auto) Eos % (Auto) Lymph # (Auto) 0.8 L [place] # (Auto) Eos # (Auto) Baso # (Auto) Seg Neutrophils % 88.6 H Seg Neuts % (Manual) Lymphocytes % (Manual) Seg Neutrophils # 8.4 H Seg Neutrophils # Man Lymphocytes # (Manual) D-Dimer ABG pH POC ABG pCO2 POC ABG pO2 ABG pO2 ABG HCO3 ABG O2 Saturation ABG Base Excess ABG Oxyhemoglobin ABG Sodium ABG Chloride ABG Glucose Oxyhemoglobin Carboxyhemoglobin Sodium Potassium Chloride Carbon Dioxide BUN Creatinine Glucose POC Glucose 226 H 130 H Hemoglobin A1c Magnesium Ferritin AST ALT Alkaline Phosphatase Lactate Dehydrogenase C-Reactive Protein Total Protein Albumin Arterial Blood Glucose Coronavirus (PCR) 05/20/21 05/20/21 05/20/21 08:01 11:00 16:43 WBC MCV MCH MCHC RDW Lymph % (Auto) [place] % (Auto) Eos % (Auto) Lymph # (Auto) [place] # (Auto) Eos # (Auto) Baso # (Auto) Seg Neutrophils % Seg Neuts % (Manual) Lymphocytes % (Manual) Seg Neutrophils # Seg Neutrophils # Man Lymphocytes # (Manual) D-Dimer ABG pH POC ABG pCO2 POC ABG pO2 ABG pO2 ABG HCO3 ABG O2 Saturation ABG Base Excess ABG Oxyhemoglobin ABG Sodium ABG Chloride ABG Glucose Oxyhemoglobin Carboxyhemoglobin Sodium Potassium Chloride Carbon Dioxide BUN 18 H Creatinine 0.2 L Glucose 132 H POC Glucose 237 H 240 H Hemoglobin A1c Magnesium Ferritin AST ALT Alkaline Phosphatase Lactate Dehydrogenase C-Reactive Protein Total Protein Albumin Arterial Blood Glucose Coronavirus (PCR) 05/20/21 05/21/21 05/21/21 21:21 07:35 11:32 WBC MCV MCH MCHC RDW Lymph % (Auto) [place] % (Auto) Eos % (Auto) Lymph # (Auto) [place] # (Auto) Eos # (Auto) Baso # (Auto) Seg Neutrophils % Seg Neuts % (Manual) Lymphocytes % (Manual) Seg Neutrophils # Seg Neutrophils # Man Lymphocytes # (Manual) D-Dimer ABG pH POC ABG pCO2 POC ABG pO2 ABG pO2 ABG HCO3 ABG O2 Saturation ABG Base Excess ABG Oxyhemoglobin ABG Sodium ABG Chloride ABG Glucose Oxyhemoglobin Carboxyhemoglobin Sodium Potassium Chloride Carbon Dioxide BUN Creatinine Glucose POC Glucose 241 H 162 H 171 H Hemoglobin A1c Magnesium Ferritin AST ALT Alkaline Phosphatase Lactate Dehydrogenase C-Reactive Protein Total Protein Albumin Arterial Blood Glucose Coronavirus (PCR) 05/21/21 05/21/21 05/22/21 16:22 20:43 05:14 WBC MCV MCH MCHC RDW Lymph % (Auto) [place] % (Auto) Eos % (Auto) Lymph # (Auto) [place] # (Auto) Eos # (Auto) Baso # (Auto) Seg Neutrophils % Seg Neuts % (Manual) Lymphocytes % (Manual) Seg Neutrophils # Seg Neutrophils # Man Lymphocytes # (Manual) D-Dimer ABG pH POC ABG pCO2 POC ABG pO2 ABG pO2 ABG HCO3 ABG O2 Saturation ABG Base Excess ABG Oxyhemoglobin ABG Sodium ABG Chloride ABG Glucose Oxyhemoglobin Carboxyhemoglobin Sodium Potassium Chloride Carbon Dioxide BUN Creatinine Glucose POC Glucose 244 H 299 H 140 H Hemoglobin A1c Magnesium Ferritin AST ALT Alkaline Phosphatase Lactate Dehydrogenase C-Reactive Protein Total Protein Albumin Arterial Blood Glucose Coronavirus (PCR) 05/22/21 05/22/21 05/22/21 08:45 11:54 16:15 WBC MCV MCH MCHC RDW Lymph % (Auto) [place] % (Auto) Eos % (Auto) Lymph # (Auto) [place] # (Auto) Eos # (Auto) Baso # (Auto) Seg Neutrophils % Seg Neuts % (Manual) Lymphocytes % (Manual) Seg Neutrophils # Seg Neutrophils # Man Lymphocytes # (Manual) D-Dimer ABG pH POC ABG pCO2 POC ABG pO2 ABG pO2 ABG HCO3 ABG O2 Saturation ABG Base Excess ABG Oxyhemoglobin ABG Sodium ABG Chloride ABG Glucose Oxyhemoglobin Carboxyhemoglobin Sodium Potassium Chloride Carbon Dioxide BUN Creatinine Glucose POC Glucose 133 H 265 H 221 H Hemoglobin A1c Magnesium Ferritin AST ALT Alkaline Phosphatase Lactate Dehydrogenase C-Reactive Protein Total Protein Albumin Arterial Blood Glucose Coronavirus (PCR) 05/22/21 05/23/21 05/23/21 21:43 08:20 09:50 WBC MCV MCH MCHC RDW Lymph % (Auto) [place] % (Auto) Eos % (Auto) Lymph # (Auto) [place] # (Auto) Eos # (Auto) Baso # (Auto) Seg Neutrophils % Seg Neuts % (Manual) Lymphocytes % (Manual) Seg Neutrophils # Seg Neutrophils # Man Lymphocytes # (Manual) D-Dimer 910.38 H ABG pH POC ABG pCO2 POC ABG pO2 ABG pO2 ABG HCO3 ABG O2 Saturation ABG Base Excess ABG Oxyhemoglobin ABG Sodium ABG Chloride ABG Glucose Oxyhemoglobin Carboxyhemoglobin Sodium Potassium Chloride Carbon Dioxide BUN Creatinine Glucose POC Glucose 262 H 140 H Hemoglobin A1c Magnesium Ferritin AST ALT Alkaline Phosphatase Lactate Dehydrogenase C-Reactive Protein Total Protein Albumin Arterial Blood Glucose Coronavirus (PCR) 05/23/21 05/23/21 05/23/21 09:50 09:50 10:52 WBC MCV MCH MCHC RDW Lymph % (Auto) [place] % (Auto) Eos % (Auto) Lymph # (Auto) [place] # (Auto) Eos # (Auto) Baso # (Auto) Seg Neutrophils % Seg Neuts % (Manual) Lymphocytes % (Manual) Seg Neutrophils # Seg Neutrophils # Man Lymphocytes # (Manual) D-Dimer ABG pH POC ABG pCO2 POC ABG pO2 ABG pO2 ABG HCO3 ABG O2 Saturation ABG Base Excess ABG Oxyhemoglobin ABG Sodium ABG Chloride ABG Glucose Oxyhemoglobin Carboxyhemoglobin Sodium Potassium Chloride Carbon Dioxide BUN Creatinine Glucose POC Glucose 241 H Hemoglobin A1c Magnesium Ferritin 244.9 H AST ALT Alkaline Phosphatase Lactate Dehydrogenase 584 H C-Reactive Protein Total Protein Albumin Arterial Blood Glucose Coronavirus (PCR) 05/23/21 05/23/21 05/24/21 17:24 21:52 07:44 WBC MCV MCH MCHC RDW Lymph % (Auto) [place] % (Auto) Eos % (Auto) Lymph # (Auto) [place] # (Auto) Eos # (Auto) Baso # (Auto) Seg Neutrophils % Seg Neuts % (Manual) Lymphocytes % (Manual) Seg Neutrophils # Seg Neutrophils # Man Lymphocytes # (Manual) D-Dimer ABG pH POC ABG pCO2 POC ABG pO2 ABG pO2 ABG HCO3 ABG O2 Saturation ABG Base Excess ABG Oxyhemoglobin ABG Sodium ABG Chloride ABG Glucose Oxyhemoglobin Carboxyhemoglobin Sodium Potassium Chloride Carbon Dioxide BUN Creatinine Glucose POC Glucose 197 H 289 H 161 H Hemoglobin A1c Magnesium Ferritin AST ALT Alkaline Phosphatase Lactate Dehydrogenase C-Reactive Protein Total Protein Albumin Arterial Blood Glucose Coronavirus (PCR) 05/24/21 05/24/21 05/24/21 11:17 17:51 21:26 WBC MCV MCH MCHC RDW Lymph % (Auto) [place] % (Auto) Eos % (Auto) Lymph # (Auto) [place] # (Auto) Eos # (Auto) Baso # (Auto) Seg Neutrophils % Seg Neuts % (Manual) Lymphocytes % (Manual) Seg Neutrophils # Seg Neutrophils # Man Lymphocytes # (Manual) D-Dimer ABG pH POC ABG pCO2 POC ABG pO2 ABG pO2 ABG HCO3 ABG O2 Saturation ABG Base Excess ABG Oxyhemoglobin ABG Sodium ABG Chloride ABG Glucose Oxyhemoglobin Carboxyhemoglobin Sodium Potassium Chloride Carbon Dioxide BUN Creatinine Glucose POC Glucose 308 H 175 H 198 H Hemoglobin A1c Magnesium Ferritin AST ALT Alkaline Phosphatase Lactate Dehydrogenase C-Reactive Protein Total Protein Albumin Arterial Blood Glucose Coronavirus (PCR) 05/25/21 05/25/21 05/25/21 08:14 11:13 17:13 WBC MCV MCH MCHC RDW Lymph % (Auto) [place] % (Auto) Eos % (Auto) Lymph # (Auto) [place] # (Auto) Eos # (Auto) Baso # (Auto) Seg Neutrophils % Seg Neuts % (Manual) Lymphocytes % (Manual) Seg Neutrophils # Seg Neutrophils # Man Lymphocytes # (Manual) D-Dimer ABG pH POC ABG pCO2 POC ABG pO2 ABG pO2 ABG HCO3 ABG O2 Saturation ABG Base Excess ABG Oxyhemoglobin ABG Sodium ABG Chloride ABG Glucose Oxyhemoglobin Carboxyhemoglobin Sodium Potassium Chloride Carbon Dioxide BUN Creatinine Glucose POC Glucose 203 H 339 H 235 H Hemoglobin A1c Magnesium Ferritin AST ALT Alkaline Phosphatase Lactate Dehydrogenase C-Reactive Protein Total Protein Albumin Arterial Blood Glucose Coronavirus (PCR) 05/25/21 05/26/21 05/26/21 21:03 07:33 11:19 WBC MCV MCH MCHC RDW Lymph % (Auto) [place] % (Auto) Eos % (Auto) Lymph # (Auto) [place] # (Auto) Eos # (Auto) Baso # (Auto) Seg Neutrophils % Seg Neuts % (Manual) Lymphocytes % (Manual) Seg Neutrophils # Seg Neutrophils # Man Lymphocytes # (Manual) D-Dimer ABG pH POC ABG pCO2 POC ABG pO2 ABG pO2 ABG HCO3 ABG O2 Saturation ABG Base Excess ABG Oxyhemoglobin ABG Sodium ABG Chloride ABG Glucose Oxyhemoglobin Carboxyhemoglobin Sodium Potassium Chloride Carbon Dioxide BUN Creatinine Glucose POC Glucose 263 H 156 H 288 H Hemoglobin A1c Magnesium Ferritin AST ALT Alkaline Phosphatase Lactate Dehydrogenase C-Reactive Protein Total Protein Albumin Arterial Blood Glucose Coronavirus (PCR) 05/26/21 05/26/21 05/27/21 16:26 20:55 07:38 WBC MCV MCH MCHC RDW Lymph % (Auto) [place] % (Auto) Eos % (Auto) Lymph # (Auto) [place] # (Auto) Eos # (Auto) Baso # (Auto) Seg Neutrophils % Seg Neuts % (Manual) Lymphocytes % (Manual) Seg Neutrophils # Seg Neutrophils # Man Lymphocytes # (Manual) D-Dimer ABG pH POC ABG pCO2 POC ABG pO2 ABG pO2 ABG HCO3 ABG O2 Saturation ABG Base Excess ABG Oxyhemoglobin ABG Sodium ABG Chloride ABG Glucose Oxyhemoglobin Carboxyhemoglobin Sodium Potassium Chloride Carbon Dioxide BUN Creatinine Glucose POC Glucose 286 H 293 H 115 H Hemoglobin A1c Magnesium Ferritin AST ALT Alkaline Phosphatase Lactate Dehydrogenase C-Reactive Protein Total Protein Albumin Arterial Blood Glucose Coronavirus (PCR) 05/27/21 05/27/21 05/27/21 11:46 15:58 21:02 WBC MCV MCH MCHC RDW Lymph % (Auto) [place] % (Auto) Eos % (Auto) Lymph # (Auto) [place] # (Auto) Eos # (Auto) Baso # (Auto) Seg Neutrophils % Seg Neuts % (Manual) Lymphocytes % (Manual) Seg Neutrophils # Seg Neutrophils # Man Lymphocytes # (Manual) D-Dimer ABG pH POC ABG pCO2 POC ABG pO2 ABG pO2 ABG HCO3 ABG O2 Saturation ABG Base Excess ABG Oxyhemoglobin ABG Sodium ABG Chloride ABG Glucose Oxyhemoglobin Carboxyhemoglobin Sodium Potassium Chloride Carbon Dioxide BUN Creatinine Glucose POC Glucose 260 H 318 H 246 H Hemoglobin A1c Magnesium Ferritin AST ALT Alkaline Phosphatase Lactate Dehydrogenase C-Reactive Protein Total Protein Albumin Arterial Blood Glucose Coronavirus (PCR) 05/28/21 05/28/21 05/28/21 07:34 11:31 16:36 WBC MCV MCH MCHC RDW Lymph % (Auto) [place] % (Auto) Eos % (Auto) Lymph # (Auto) [place] # (Auto) Eos # (Auto) Baso # (Auto) Seg Neutrophils % Seg Neuts % (Manual) Lymphocytes % (Manual) Seg Neutrophils # Seg Neutrophils # Man Lymphocytes # (Manual) D-Dimer ABG pH POC ABG pCO2 POC ABG pO2 ABG pO2 ABG HCO3 ABG O2 Saturation ABG Base Excess ABG Oxyhemoglobin ABG Sodium ABG Chloride ABG Glucose Oxyhemoglobin Carboxyhemoglobin Sodium Potassium Chloride Carbon Dioxide BUN Creatinine Glucose POC Glucose 185 H 297 H 183 H Hemoglobin A1c Magnesium Ferritin AST ALT Alkaline Phosphatase Lactate Dehydrogenase C-Reactive Protein Total Protein Albumin Arterial Blood Glucose Coronavirus (PCR) 05/28/21 05/29/21 05/29/21 21:19 07:34 11:19 WBC MCV MCH MCHC RDW Lymph % (Auto) [place] % (Auto) Eos % (Auto) Lymph # (Auto) [place] # (Auto) Eos # (Auto) Baso # (Auto) Seg Neutrophils % Seg Neuts % (Manual) Lymphocytes % (Manual) Seg Neutrophils # Seg Neutrophils # Man Lymphocytes # (Manual) D-Dimer ABG pH POC ABG pCO2 POC ABG pO2 ABG pO2 ABG HCO3 ABG O2 Saturation ABG Base Excess ABG Oxyhemoglobin ABG Sodium ABG Chloride ABG Glucose Oxyhemoglobin Carboxyhemoglobin Sodium Potassium Chloride Carbon Dioxide BUN Creatinine Glucose POC Glucose 274 H 139 H 293 H Hemoglobin A1c Magnesium Ferritin AST ALT Alkaline Phosphatase Lactate Dehydrogenase C-Reactive Protein Total Protein Albumin Arterial Blood Glucose Coronavirus (PCR) 05/29/21 05/29/21 05/30/21 16:36 22:44 05:55 WBC MCV MCH MCHC RDW 21.3 H Lymph % (Auto) 8.0 L [place] % (Auto) Eos % (Auto) Lymph # (Auto) 0.6 L [place] # (Auto) Eos # (Auto) Baso # (Auto) Seg Neutrophils % 88.6 H Seg Neuts % (Manual) Lymphocytes % (Manual) Seg Neutrophils # Seg Neutrophils # Man Lymphocytes # (Manual) D-Dimer ABG pH POC ABG pCO2 POC ABG pO2 ABG pO2 ABG HCO3 ABG O2 Saturation ABG Base Excess ABG Oxyhemoglobin ABG Sodium ABG Chloride ABG Glucose Oxyhemoglobin Carboxyhemoglobin Sodium Potassium Chloride Carbon Dioxide BUN Creatinine Glucose POC Glucose 299 H 160 H Hemoglobin A1c Magnesium Ferritin AST ALT Alkaline Phosphatase Lactate Dehydrogenase C-Reactive Protein Total Protein Albumin Arterial Blood Glucose Coronavirus (PCR) 05/30/21 05/30/21 05/30/21 05:55 08:04 11:13 WBC MCV MCH MCHC RDW Lymph % (Auto) [place] % (Auto) Eos % (Auto) Lymph # (Auto) [place] # (Auto) Eos # (Auto) Baso # (Auto) Seg Neutrophils % Seg Neuts % (Manual) Lymphocytes % (Manual) Seg Neutrophils # Seg Neutrophils # Man Lymphocytes # (Manual) D-Dimer ABG pH POC ABG pCO2 POC ABG pO2 ABG pO2 ABG HCO3 ABG O2 Saturation ABG Base Excess ABG Oxyhemoglobin ABG Sodium ABG Chloride ABG Glucose Oxyhemoglobin Carboxyhemoglobin Sodium Potassium Chloride Carbon Dioxide BUN 19 H Creatinine 0.2 L Glucose 209 H POC Glucose 157 H 275 H Hemoglobin A1c Magnesium Ferritin AST ALT Alkaline Phosphatase Lactate Dehydrogenase C-Reactive Protein Total Protein Albumin Arterial Blood Glucose Coronavirus (PCR) 05/30/21 05/30/21 05/31/21 17:08 22:12 07:36 WBC MCV MCH MCHC RDW Lymph % (Auto) [place] % (Auto) Eos % (Auto) Lymph # (Auto) [place] # (Auto) Eos # (Auto) Baso # (Auto) Seg Neutrophils % Seg Neuts % (Manual) Lymphocytes % (Manual) Seg Neutrophils # Seg Neutrophils # Man Lymphocytes # (Manual) D-Dimer ABG pH POC ABG pCO2 POC ABG pO2 ABG pO2 ABG HCO3 ABG O2 Saturation ABG Base Excess ABG Oxyhemoglobin ABG Sodium ABG Chloride ABG Glucose Oxyhemoglobin Carboxyhemoglobin Sodium Potassium Chloride Carbon Dioxide BUN Creatinine Glucose POC Glucose 154 H 275 H 138 H Hemoglobin A1c Magnesium Ferritin AST ALT Alkaline Phosphatase Lactate Dehydrogenase C-Reactive Protein Total Protein Albumin Arterial Blood Glucose Coronavirus (PCR) 05/31/21 05/31/21 05/31/21 11:17 16:55 21:25 WBC MCV MCH MCHC RDW Lymph % (Auto) [place] % (Auto) Eos % (Auto) Lymph # (Auto) [place] # (Auto) Eos # (Auto) Baso # (Auto) Seg Neutrophils % Seg Neuts % (Manual) Lymphocytes % (Manual) Seg Neutrophils # Seg Neutrophils # Man Lymphocytes # (Manual) D-Dimer ABG pH POC ABG pCO2 POC ABG pO2 ABG pO2 ABG HCO3 ABG O2 Saturation ABG Base Excess ABG Oxyhemoglobin ABG Sodium ABG Chloride ABG Glucose Oxyhemoglobin Carboxyhemoglobin Sodium Potassium Chloride Carbon Dioxide BUN Creatinine Glucose POC Glucose 258 H 215 H 318 H Hemoglobin A1c Magnesium Ferritin AST ALT Alkaline Phosphatase Lactate Dehydrogenase C-Reactive Protein Total Protein Albumin Arterial Blood Glucose Coronavirus (PCR) 06/01/21 06/01/21 06/01/21 07:23 11:38 16:52 WBC MCV MCH MCHC RDW Lymph % (Auto) [place] % (Auto) Eos % (Auto) Lymph # (Auto) [place] # (Auto) Eos # (Auto) Baso # (Auto) Seg Neutrophils % Seg Neuts % (Manual) Lymphocytes % (Manual) Seg Neutrophils # Seg Neutrophils # Man Lymphocytes # (Manual) D-Dimer ABG pH POC ABG pCO2 POC ABG pO2 ABG pO2 ABG HCO3 ABG O2 Saturation ABG Base Excess ABG Oxyhemoglobin ABG Sodium ABG Chloride ABG Glucose Oxyhemoglobin Carboxyhemoglobin Sodium Potassium Chloride Carbon Dioxide BUN Creatinine Glucose POC Glucose 157 H 259 H 150 H Hemoglobin A1c Magnesium Ferritin AST ALT Alkaline Phosphatase Lactate Dehydrogenase C-Reactive Protein Total Protein Albumin Arterial Blood Glucose Coronavirus (PCR) 06/01/21 06/02/21 06/02/21 23:16 05:34 05:34 WBC MCV MCH MCHC RDW 21.3 H Lymph % (Auto) 9.6 L [place] % (Auto) Eos % (Auto) Lymph # (Auto) 0.6 L [place] # (Auto) Eos # (Auto) Baso # (Auto) Seg Neutrophils % 86.2 H Seg Neuts % (Manual) Lymphocytes % (Manual) Seg Neutrophils # Seg Neutrophils # Man Lymphocytes # (Manual) D-Dimer ABG pH POC ABG pCO2 POC ABG pO2 ABG pO2 ABG HCO3 ABG O2 Saturation ABG Base Excess ABG Oxyhemoglobin ABG Sodium ABG Chloride ABG Glucose Oxyhemoglobin Carboxyhemoglobin Sodium 136 L Potassium Chloride Carbon Dioxide BUN Creatinine 0.2 L Glucose 186 H POC Glucose 247 H Hemoglobin A1c Magnesium Ferritin AST ALT 69 H Alkaline Phosphatase Lactate Dehydrogenase C-Reactive Protein Total Protein 6.1 L Albumin 3.2 L Arterial Blood Glucose Coronavirus (PCR) 06/02/21 06/02/21 06/02/21 11:25 18:23 21:32 WBC MCV MCH MCHC RDW Lymph % (Auto) [place] % (Auto) Eos % (Auto) Lymph # (Auto) [place] # (Auto) Eos # (Auto) Baso # (Auto) Seg Neutrophils % Seg Neuts % (Manual) Lymphocytes % (Manual) Seg Neutrophils # Seg Neutrophils # Man Lymphocytes # (Manual) D-Dimer ABG pH POC ABG pCO2 POC ABG pO2 ABG pO2 ABG HCO3 ABG O2 Saturation ABG Base Excess ABG Oxyhemoglobin ABG Sodium ABG Chloride ABG Glucose Oxyhemoglobin Carboxyhemoglobin Sodium Potassium Chloride Carbon Dioxide BUN Creatinine Glucose POC Glucose 157 H 299 H 246 H Hemoglobin A1c Magnesium Ferritin AST ALT Alkaline Phosphatase Lactate Dehydrogenase C-Reactive Protein Total Protein Albumin Arterial Blood Glucose Coronavirus (PCR) 06/03/21 06/03/21 06/03/21 08:12 12:21 17:31 WBC MCV MCH MCHC RDW Lymph % (Auto) [place] % (Auto) Eos % (Auto) Lymph # (Auto) [place] # (Auto) Eos # (Auto) Baso # (Auto) Seg Neutrophils % Seg Neuts % (Manual) Lymphocytes % (Manual) Seg Neutrophils # Seg Neutrophils # Man Lymphocytes # (Manual) D-Dimer ABG pH POC ABG pCO2 POC ABG pO2 ABG pO2 ABG HCO3 ABG O2 Saturation ABG Base Excess ABG Oxyhemoglobin ABG Sodium ABG Chloride ABG Glucose Oxyhemoglobin Carboxyhemoglobin Sodium Potassium Chloride Carbon Dioxide BUN Creatinine Glucose POC Glucose 153 H 302 H 252 H Hemoglobin A1c Magnesium Ferritin AST ALT Alkaline Phosphatase Lactate Dehydrogenase C-Reactive Protein Total Protein Albumin Arterial Blood Glucose Coronavirus (PCR) 06/03/21 06/04/21 06/04/21 22:08 11:12 16:01 WBC MCV MCH MCHC RDW Lymph % (Auto) [place] % (Auto) Eos % (Auto) Lymph # (Auto) [place] # (Auto) Eos # (Auto) Baso # (Auto) Seg Neutrophils % Seg Neuts % (Manual) Lymphocytes % (Manual) Seg Neutrophils # Seg Neutrophils # Man Lymphocytes # (Manual) D-Dimer ABG pH POC ABG pCO2 POC ABG pO2 ABG pO2 ABG HCO3 ABG O2 Saturation ABG Base Excess ABG Oxyhemoglobin ABG Sodium ABG Chloride ABG Glucose Oxyhemoglobin Carboxyhemoglobin Sodium Potassium Chloride Carbon Dioxide BUN Creatinine Glucose POC Glucose 224 H 259 H 238 H Hemoglobin A1c Magnesium Ferritin AST ALT Alkaline Phosphatase Lactate Dehydrogenase C-Reactive Protein Total Protein Albumin Arterial Blood Glucose Coronavirus (PCR) 06/04/21 06/05/21 06/05/21 21:26 05:26 05:26 WBC MCV MCH MCHC RDW Lymph % (Auto) [place] % (Auto) Eos % (Auto) Lymph # (Auto) [place] # (Auto) Eos # (Auto) Baso # (Auto) Seg Neutrophils % Seg Neuts % (Manual) Lymphocytes % (Manual) Seg Neutrophils # Seg Neutrophils # Man Lymphocytes # (Manual) D-Dimer 488.49 H ABG pH POC ABG pCO2 POC ABG pO2 ABG pO2 ABG HCO3 ABG O2 Saturation ABG Base Excess ABG Oxyhemoglobin ABG Sodium ABG Chloride ABG Glucose Oxyhemoglobin Carboxyhemoglobin Sodium Potassium Chloride Carbon Dioxide BUN Creatinine 0.2 L Glucose 198 H POC Glucose 257 H Hemoglobin A1c Magnesium Ferritin AST ALT Alkaline Phosphatase Lactate Dehydrogenase 475 H C-Reactive Protein Total Protein Albumin Arterial Blood Glucose Coronavirus (PCR) 06/05/21 06/05/21 06/05/21 07:20 08:30 11:00 WBC MCV MCH MCHC RDW Lymph % (Auto) [place] % (Auto) Eos % (Auto) Lymph # (Auto) [place] # (Auto) Eos # (Auto) Baso # (Auto) Seg Neutrophils % Seg Neuts % (Manual) Lymphocytes % (Manual) Seg Neutrophils # Seg Neutrophils # Man Lymphocytes # (Manual) D-Dimer ABG pH POC ABG pCO2 POC ABG pO2 ABG pO2 ABG HCO3 ABG O2 Saturation ABG Base Excess ABG Oxyhemoglobin ABG Sodium ABG Chloride ABG Glucose Oxyhemoglobin Carboxyhemoglobin Sodium Potassium Chloride Carbon Dioxide BUN Creatinine Glucose POC Glucose 146 H 246 H Hemoglobin A1c Magnesium Ferritin AST ALT Alkaline Phosphatase Lactate Dehydrogenase C-Reactive Protein Total Protein Albumin Arterial Blood Glucose Coronavirus (PCR) Positive A 06/05/21 06/05/21 06/06/21 16:50 22:30 07:57 WBC MCV MCH MCHC RDW Lymph % (Auto) [place] % (Auto) Eos % (Auto) Lymph # (Auto) [place] # (Auto) Eos # (Auto) Baso # (Auto) Seg Neutrophils % Seg Neuts % (Manual) Lymphocytes % (Manual) Seg Neutrophils # Seg Neutrophils # Man Lymphocytes # (Manual) D-Dimer ABG pH POC ABG pCO2 POC ABG pO2 ABG pO2 ABG HCO3 ABG O2 Saturation ABG Base Excess ABG Oxyhemoglobin ABG Sodium ABG Chloride ABG Glucose Oxyhemoglobin Carboxyhemoglobin Sodium Potassium Chloride Carbon Dioxide BUN Creatinine Glucose POC Glucose 240 H 174 H 120 H Hemoglobin A1c Magnesium Ferritin AST ALT Alkaline Phosphatase Lactate Dehydrogenase C-Reactive Protein Total Protein Albumin Arterial Blood Glucose Coronavirus (PCR) 06/06/21 06/06/21 06/06/21 11:14 16:50 21:11 WBC MCV MCH MCHC RDW Lymph % (Auto) [place] % (Auto) Eos % (Auto) Lymph # (Auto) [place] # (Auto) Eos # (Auto) Baso # (Auto) Seg Neutrophils % Seg Neuts % (Manual) Lymphocytes % (Manual) Seg Neutrophils # Seg Neutrophils # Man Lymphocytes # (Manual) D-Dimer ABG pH POC ABG pCO2 POC ABG pO2 ABG pO2 ABG HCO3 ABG O2 Saturation ABG Base Excess ABG Oxyhemoglobin ABG Sodium ABG Chloride ABG Glucose Oxyhemoglobin Carboxyhemoglobin Sodium Potassium Chloride Carbon Dioxide BUN Creatinine Glucose POC Glucose 267 H 218 H 124 H Hemoglobin A1c Magnesium Ferritin AST ALT Alkaline Phosphatase Lactate Dehydrogenase C-Reactive Protein Total Protein Albumin Arterial Blood Glucose Coronavirus (PCR) 06/07/21 06/07/21 06/08/21 11:58 15:59 07:59 WBC MCV MCH MCHC RDW Lymph % (Auto) [place] % (Auto) Eos % (Auto) Lymph # (Auto) [place] # (Auto) Eos # (Auto) Baso # (Auto) Seg Neutrophils % Seg Neuts % (Manual) Lymphocytes % (Manual) Seg Neutrophils # Seg Neutrophils # Man Lymphocytes # (Manual) D-Dimer ABG pH POC ABG pCO2 POC ABG pO2 ABG pO2 ABG HCO3 ABG O2 Saturation ABG Base Excess ABG Oxyhemoglobin ABG Sodium ABG Chloride ABG Glucose Oxyhemoglobin Carboxyhemoglobin Sodium Potassium Chloride Carbon Dioxide BUN Creatinine Glucose POC Glucose 219 H 208 H 192 H Hemoglobin A1c Magnesium Ferritin AST ALT Alkaline Phosphatase Lactate Dehydrogenase C-Reactive Protein Total Protein Albumin Arterial Blood Glucose Coronavirus (PCR) 06/08/21 06/08/21 06/09/21 11:26 23:28 07:33 WBC MCV MCH MCHC RDW Lymph % (Auto) [place] % (Auto) Eos % (Auto) Lymph # (Auto) [place] # (Auto) Eos # (Auto) Baso # (Auto) Seg Neutrophils % Seg Neuts % (Manual) Lymphocytes % (Manual) Seg Neutrophils # Seg Neutrophils # Man Lymphocytes # (Manual) D-Dimer ABG pH POC ABG pCO2 POC ABG pO2 ABG pO2 ABG HCO3 ABG O2 Saturation ABG Base Excess ABG Oxyhemoglobin ABG Sodium ABG Chloride ABG Glucose Oxyhemoglobin Carboxyhemoglobin Sodium Potassium Chloride Carbon Dioxide BUN Creatinine Glucose POC Glucose 307 H 138 H 145 H Hemoglobin A1c Magnesium Ferritin AST ALT Alkaline Phosphatase Lactate Dehydrogenase C-Reactive Protein Total Protein Albumin Arterial Blood Glucose Coronavirus (PCR) 06/09/21 06/09/2121 11:01 15:47 21:43 WBC MCV MCH MCHC RDW Lymph % (Auto) [place] % (Auto) Eos % (Auto) Lymph # (Auto) [place] # (Auto) Eos # (Auto) Baso # (Auto) Seg Neutrophils % Seg Neuts % (Manual) Lymphocytes % (Manual) Seg Neutrophils # Seg Neutrophils # Man Lymphocytes # (Manual) D-Dimer ABG pH POC ABG pCO2 POC ABG pO2 ABG pO2 ABG HCO3 ABG O2 Saturation ABG Base Excess ABG Oxyhemoglobin ABG Sodium ABG Chloride ABG Glucose Oxyhemoglobin Carboxyhemoglobin Sodium Potassium Chloride Carbon Dioxide BUN Creatinine Glucose POC Glucose 266 H 305 H 223 H Hemoglobin A1c Magnesium Ferritin AST ALT Alkaline Phosphatase Lactate Dehydrogenase C-Reactive Protein Total Protein Albumin Arterial Blood Glucose Coronavirus (PCR) 06/10/21 06/10/21 06/10/21 08:27 12:10 17:45 WBC MCV MCH MCHC RDW Lymph % (Auto) [place] % (Auto) Eos % (Auto) Lymph # (Auto) [place] # (Auto) Eos # (Auto) Baso # (Auto) Seg Neutrophils % Seg Neuts % (Manual) Lymphocytes % (Manual) Seg Neutrophils # Seg Neutrophils # Man Lymphocytes # (Manual) D-Dimer ABG pH POC ABG pCO2 POC ABG pO2 ABG pO2 ABG HCO3 ABG O2 Saturation ABG Base Excess ABG Oxyhemoglobin ABG Sodium ABG Chloride ABG Glucose Oxyhemoglobin Carboxyhemoglobin Sodium Potassium Chloride Carbon Dioxide BUN Creatinine Glucose POC Glucose 174 H 306 H 210 H Hemoglobin A1c Magnesium Ferritin AST ALT Alkaline Phosphatase Lactate Dehydrogenase C-Reactive Protein Total Protein Albumin Arterial Blood Glucose Coronavirus (PCR) 06/10/21 06/11/21 06/11/21 21:45 09:38 09:38 WBC MCV MCH MCHC RDW 20.9 H Lymph % (Auto) [place] % (Auto) Eos % (Auto) Lymph # (Auto) [place] # (Auto) Eos # (Auto) Baso # (Auto) Seg Neutrophils % Seg Neuts % (Manual) Lymphocytes % (Manual) Seg Neutrophils # Seg Neutrophils # Man Lymphocytes # (Manual) D-Dimer ABG pH POC ABG pCO2 POC ABG pO2 ABG pO2 ABG HCO3 ABG O2 Saturation ABG Base Excess ABG Oxyhemoglobin ABG Sodium ABG Chloride ABG Glucose Oxyhemoglobin Carboxyhemoglobin Sodium 135 L Potassium Chloride 90.8 L Carbon Dioxide 36 H BUN 29 H Creatinine 0.2 L Glucose 258 H POC Glucose 262 H Hemoglobin A1c Magnesium Ferritin AST ALT Alkaline Phosphatase Lactate Dehydrogenase C-Reactive Protein Total Protein Albumin Arterial Blood Glucose Coronavirus (PCR) 06/11/21 06/11/21 06/11/21 11:20 15:49 22:57 WBC MCV MCH MCHC RDW Lymph % (Auto) [place] % (Auto) Eos % (Auto) Lymph # (Auto) [place] # (Auto) Eos # (Auto) Baso # (Auto) Seg Neutrophils % Seg Neuts % (Manual) Lymphocytes % (Manual) Seg Neutrophils # Seg Neutrophils # Man Lymphocytes # (Manual) D-Dimer ABG pH POC ABG pCO2 POC ABG pO2 ABG pO2 ABG HCO3 ABG O2 Saturation ABG Base Excess ABG Oxyhemoglobin ABG Sodium ABG Chloride ABG Glucose Oxyhemoglobin Carboxyhemoglobin Sodium Potassium Chloride Carbon Dioxide BUN Creatinine Glucose POC Glucose 269 H 206 H 211 H Hemoglobin A1c Magnesium Ferritin AST ALT Alkaline Phosphatase Lactate Dehydrogenase C-Reactive Protein Total Protein Albumin Arterial Blood Glucose Coronavirus (PCR) 06/12/21 06/12/21 06/12/21 08:07 11:24 18:08 WBC MCV MCH MCHC RDW Lymph % (Auto) [place] % (Auto) Eos % (Auto) Lymph # (Auto) [place] # (Auto) Eos # (Auto) Baso # (Auto) Seg Neutrophils % Seg Neuts % (Manual) Lymphocytes % (Manual) Seg Neutrophils # Seg Neutrophils # Man Lymphocytes # (Manual) D-Dimer ABG pH POC ABG pCO2 POC ABG pO2 ABG pO2 ABG HCO3 ABG O2 Saturation ABG Base Excess ABG Oxyhemoglobin ABG Sodium ABG Chloride ABG Glucose Oxyhemoglobin Carboxyhemoglobin Sodium Potassium Chloride Carbon Dioxide BUN Creatinine Glucose POC Glucose 149 H 270 H 166 H Hemoglobin A1c Magnesium Ferritin AST ALT Alkaline Phosphatase Lactate Dehydrogenase C-Reactive Protein Total Protein Albumin Arterial Blood Glucose Coronavirus (PCR) 06/12/21 06/13/21 06/13/21 20:22 07:50 11:18 WBC MCV MCH MCHC RDW Lymph % (Auto) [place] % (Auto) Eos % (Auto) Lymph # (Auto) [place] # (Auto) Eos # (Auto) Baso # (Auto) Seg Neutrophils % Seg Neuts % (Manual) Lymphocytes % (Manual) Seg Neutrophils # Seg Neutrophils # Man Lymphocytes # (Manual) D-Dimer ABG pH POC ABG pCO2 POC ABG pO2 ABG pO2 ABG HCO3 ABG O2 Saturation ABG Base Excess ABG Oxyhemoglobin ABG Sodium ABG Chloride ABG Glucose Oxyhemoglobin Carboxyhemoglobin Sodium Potassium Chloride Carbon Dioxide BUN Creatinine Glucose POC Glucose 155 H 163 H 293 H Hemoglobin A1c Magnesium Ferritin AST ALT Alkaline Phosphatase Lactate Dehydrogenase C-Reactive Protein Total Protein Albumin Arterial Blood Glucose Coronavirus (PCR) 06/13/21 06/13/21 06/14/21 16:41 21:00 07:41 WBC MCV MCH MCHC RDW Lymph % (Auto) [place] % (Auto) Eos % (Auto) Lymph # (Auto) [place] # (Auto) Eos # (Auto) Baso # (Auto) Seg Neutrophils % Seg Neuts % (Manual) Lymphocytes % (Manual) Seg Neutrophils # Seg Neutrophils # Man Lymphocytes # (Manual) D-Dimer ABG pH POC ABG pCO2 POC ABG pO2 ABG pO2 ABG HCO3 ABG O2 Saturation ABG Base Excess ABG Oxyhemoglobin ABG Sodium ABG Chloride ABG Glucose Oxyhemoglobin Carboxyhemoglobin Sodium Potassium Chloride Carbon Dioxide BUN Creatinine Glucose POC Glucose 232 H 183 H 52 L Hemoglobin A1c Magnesium Ferritin AST ALT Alkaline Phosphatase Lactate Dehydrogenase C-Reactive Protein Total Protein Albumin Arterial Blood Glucose Coronavirus (PCR) 06/14/21 06/14/21 06/14/21 11:44 17:44 21:44 WBC MCV MCH MCHC RDW Lymph % (Auto) [place] % (Auto) Eos % (Auto) Lymph # (Auto) [place] # (Auto) Eos # (Auto) Baso # (Auto) Seg Neutrophils % Seg Neuts % (Manual) Lymphocytes % (Manual) Seg Neutrophils # Seg Neutrophils # Man Lymphocytes # (Manual) D-Dimer ABG pH POC ABG pCO2 POC ABG pO2 ABG pO2 ABG HCO3 ABG O2 Saturation ABG Base Excess ABG Oxyhemoglobin ABG Sodium ABG Chloride ABG Glucose Oxyhemoglobin Carboxyhemoglobin Sodium Potassium Chloride Carbon Dioxide BUN Creatinine Glucose POC Glucose 205 H 293 H 288 H Hemoglobin A1c Magnesium Ferritin AST ALT Alkaline Phosphatase Lactate Dehydrogenase C-Reactive Protein Total Protein Albumin Arterial Blood Glucose Coronavirus (PCR) 06/15/21 06/15/21 06/15/21 08:00 08:00 11:40 WBC MCV MCH 33 H MCHC 35 H RDW 20.3 H Lymph % (Auto) [place] % (Auto) Eos % (Auto) Lymph # (Auto) [place] # (Auto) Eos # (Auto) Baso # (Auto) Seg Neutrophils % Seg Neuts % (Manual) Lymphocytes % (Manual) Seg Neutrophils # Seg Neutrophils # Man Lymphocytes # (Manual) D-Dimer ABG pH POC ABG pCO2 POC ABG pO2 ABG pO2 ABG HCO3 ABG O2 Saturation ABG Base Excess ABG Oxyhemoglobin ABG Sodium ABG Chloride ABG Glucose Oxyhemoglobin Carboxyhemoglobin Sodium Potassium 3.2 L Chloride 95.3 L Carbon Dioxide 32 H BUN 23 H Creatinine 0.2 L Glucose 103 H POC Glucose 204 H Hemoglobin A1c Magnesium Ferritin AST ALT Alkaline Phosphatase Lactate Dehydrogenase C-Reactive Protein Total Protein Albumin Arterial Blood Glucose Coronavirus (PCR) 06/15/21 06/15/21 06/16/21 16:17 22:00 11:43 WBC MCV MCH MCHC RDW Lymph % (Auto) [place] % (Auto) Eos % (Auto) Lymph # (Auto) [place] # (Auto) Eos # (Auto) Baso # (Auto) Seg Neutrophils % Seg Neuts % (Manual) Lymphocytes % (Manual) Seg Neutrophils # Seg Neutrophils # Man Lymphocytes # (Manual) D-Dimer ABG pH POC ABG pCO2 POC ABG pO2 ABG pO2 ABG HCO3 ABG O2 Saturation ABG Base Excess ABG Oxyhemoglobin ABG Sodium ABG Chloride ABG Glucose Oxyhemoglobin Carboxyhemoglobin Sodium Potassium Chloride Carbon Dioxide BUN Creatinine Glucose POC Glucose 295 H 233 H 201 H Hemoglobin A1c Magnesium Ferritin AST ALT Alkaline Phosphatase Lactate Dehydrogenase C-Reactive Protein Total Protein Albumin Arterial Blood Glucose Coronavirus (PCR) 06/16/21 06/16/21 06/17/21 17:21 21:27 07:12 WBC MCV MCH MCHC RDW Lymph % (Auto) [place] % (Auto) Eos % (Auto) Lymph # (Auto) [place] # (Auto) Eos # (Auto) Baso # (Auto) Seg Neutrophils % Seg Neuts % (Manual) Lymphocytes % (Manual) Seg Neutrophils # Seg Neutrophils # Man Lymphocytes # (Manual) D-Dimer ABG pH POC ABG pCO2 POC ABG pO2 ABG pO2 ABG HCO3 ABG O2 Saturation ABG Base Excess ABG Oxyhemoglobin ABG Sodium ABG Chloride ABG Glucose Oxyhemoglobin Carboxyhemoglobin Sodium Potassium Chloride Carbon Dioxide BUN Creatinine Glucose POC Glucose 299 H 290 H 67 L Hemoglobin A1c Magnesium Ferritin AST ALT Alkaline Phosphatase Lactate Dehydrogenase C-Reactive Protein Total Protein Albumin Arterial Blood Glucose Coronavirus (PCR) 06/17/21 06/17/21 06/17/21 11:53 17:02 22:25 WBC MCV MCH MCHC RDW Lymph % (Auto) [place] % (Auto) Eos % (Auto) Lymph # (Auto) [place] # (Auto) Eos # (Auto) Baso # (Auto) Seg Neutrophils % Seg Neuts % (Manual) Lymphocytes % (Manual) Seg Neutrophils # Seg Neutrophils # Man Lymphocytes # (Manual) D-Dimer ABG pH POC ABG pCO2 POC ABG pO2 ABG pO2 ABG HCO3 ABG O2 Saturation ABG Base Excess ABG Oxyhemoglobin ABG Sodium ABG Chloride ABG Glucose Oxyhemoglobin Carboxyhemoglobin Sodium Potassium Chloride Carbon Dioxide BUN Creatinine Glucose POC Glucose 199 H 362 H 235 H Hemoglobin A1c Magnesium Ferritin AST ALT Alkaline Phosphatase Lactate Dehydrogenase C-Reactive Protein Total Protein Albumin Arterial Blood Glucose Coronavirus (PCR) 06/18/21 06/18/21 06/18/21 08:00 11:48 16:40 WBC MCV MCH MCHC RDW Lymph % (Auto) [place] % (Auto) Eos % (Auto) Lymph # (Auto) [place] # (Auto) Eos # (Auto) Baso # (Auto) Seg Neutrophils % Seg Neuts % (Manual) Lymphocytes % (Manual) Seg Neutrophils # Seg Neutrophils # Man Lymphocytes # (Manual) D-Dimer ABG pH POC ABG pCO2 POC ABG pO2 ABG pO2 ABG HCO3 ABG O2 Saturation ABG Base Excess ABG Oxyhemoglobin ABG Sodium ABG Chloride ABG Glucose Oxyhemoglobin Carboxyhemoglobin Sodium Potassium Chloride Carbon Dioxide BUN Creatinine Glucose POC Glucose 62 L 211 H 305 H Hemoglobin A1c Magnesium Ferritin AST ALT Alkaline Phosphatase Lactate Dehydrogenase C-Reactive Protein Total Protein Albumin Arterial Blood Glucose Coronavirus (PCR) 06/18/21 06/19/21 06/19/21 21:26 07:27 11:32 WBC MCV MCH MCHC RDW Lymph % (Auto) [place] % (Auto) Eos % (Auto) Lymph # (Auto) [place] # (Auto) Eos # (Auto) Baso # (Auto) Seg Neutrophils % Seg Neuts % (Manual) Lymphocytes % (Manual) Seg Neutrophils # Seg Neutrophils # Man Lymphocytes # (Manual) D-Dimer ABG pH POC ABG pCO2 POC ABG pO2 ABG pO2 ABG HCO3 ABG O2 Saturation ABG Base Excess ABG Oxyhemoglobin ABG Sodium ABG Chloride ABG Glucose Oxyhemoglobin Carboxyhemoglobin Sodium Potassium Chloride Carbon Dioxide BUN Creatinine Glucose POC Glucose 149 H 60 L 208 H Hemoglobin A1c Magnesium Ferritin AST ALT Alkaline Phosphatase Lactate Dehydrogenase C-Reactive Protein Total Protein Albumin Arterial Blood Glucose Coronavirus (PCR) 06/19/21 06/19/21 06/20/21 16:06 22:28 07:48 WBC MCV MCH MCHC RDW Lymph % (Auto) [place] % (Auto) Eos % (Auto) Lymph # (Auto) [place] # (Auto) Eos # (Auto) Baso # (Auto) Seg Neutrophils % Seg Neuts % (Manual) Lymphocytes % (Manual) Seg Neutrophils # Seg Neutrophils # Man Lymphocytes # (Manual) D-Dimer ABG pH POC ABG pCO2 POC ABG pO2 ABG pO2 ABG HCO3 ABG O2 Saturation ABG Base Excess ABG Oxyhemoglobin ABG Sodium ABG Chloride ABG Glucose Oxyhemoglobin Carboxyhemoglobin Sodium Potassium Chloride Carbon Dioxide BUN Creatinine Glucose POC Glucose 266 H 166 H 58 L Hemoglobin A1c Magnesium Ferritin AST ALT Alkaline Phosphatase Lactate Dehydrogenase C-Reactive Protein Total Protein Albumin Arterial Blood Glucose Coronavirus (PCR) 06/20/21 06/20/21 06/20/21 09:09 11:04 16:01 WBC MCV MCH MCHC RDW Lymph % (Auto) [place] % (Auto) Eos % (Auto) Lymph # (Auto) [place] # (Auto) Eos # (Auto) Baso # (Auto) Seg Neutrophils % Seg Neuts % (Manual) Lymphocytes % (Manual) Seg Neutrophils # Seg Neutrophils # Man Lymphocytes # (Manual) D-Dimer ABG pH POC ABG pCO2 POC ABG pO2 ABG pO2 ABG HCO3 ABG O2 Saturation ABG Base Excess ABG Oxyhemoglobin ABG Sodium ABG Chloride ABG Glucose Oxyhemoglobin Carboxyhemoglobin Sodium Potassium Chloride Carbon Dioxide BUN Creatinine Glucose POC Glucose 146 H 225 H 330 H Hemoglobin A1c Magnesium Ferritin AST ALT Alkaline Phosphatase Lactate Dehydrogenase C-Reactive Protein Total Protein Albumin Arterial Blood Glucose Coronavirus (PCR) 06/20/21 06/21/21 06/21/21 20:46 06:45 06:45 WBC MCV MCH MCHC RDW 20.0 H Lymph % (Auto) [place] % (Auto) Eos % (Auto) Lymph # (Auto) [place] # (Auto) Eos # (Auto) Baso # (Auto) Seg Neutrophils % Seg Neuts % (Manual) Lymphocytes % (Manual) Seg Neutrophils # Seg Neutrophils # Man Lymphocytes # (Manual) D-Dimer ABG pH POC ABG pCO2 POC ABG pO2 ABG pO2 ABG HCO3 ABG O2 Saturation ABG Base Excess ABG Oxyhemoglobin ABG Sodium ABG Chloride ABG Glucose Oxyhemoglobin Carboxyhemoglobin Sodium Potassium 2.9 L* Chloride 95.0 L Carbon Dioxide 31 H BUN 23 H Creatinine 0.2 L Glucose 45 L POC Glucose 215 H Hemoglobin A1c Magnesium Ferritin AST ALT Alkaline Phosphatase Lactate Dehydrogenase C-Reactive Protein Total Protein Albumin Arterial Blood Glucose Coronavirus (PCR) 06/21/21 06/21/21 06/21/21 07:38 09:06 12:40 WBC MCV MCH MCHC RDW Lymph % (Auto) [place] % (Auto) Eos % (Auto) Lymph # (Auto) [place] # (Auto) Eos # (Auto) Baso # (Auto) Seg Neutrophils % Seg Neuts % (Manual) Lymphocytes % (Manual) Seg Neutrophils # Seg Neutrophils # Man Lymphocytes # (Manual) D-Dimer ABG pH POC ABG pCO2 POC ABG pO2 ABG pO2 ABG HCO3 ABG O2 Saturation ABG Base Excess ABG Oxyhemoglobin ABG Sodium ABG Chloride ABG Glucose Oxyhemoglobin Carboxyhemoglobin Sodium Potassium Chloride Carbon Dioxide BUN Creatinine Glucose POC Glucose 50 L 196 H 205 H Hemoglobin A1c Magnesium Ferritin AST ALT Alkaline Phosphatase Lactate Dehydrogenase C-Reactive Protein Total Protein Albumin Arterial Blood Glucose Coronavirus (PCR) 06/21/21 06/22/21 06/22/21 21:36 06:25 07:15 WBC MCV MCH MCHC RDW Lymph % (Auto) [place] % (Auto) Eos % (Auto) Lymph # (Auto) [place] # (Auto) Eos # (Auto) Baso # (Auto) Seg Neutrophils % Seg Neuts % (Manual) Lymphocytes % (Manual) Seg Neutrophils # Seg Neutrophils # Man Lymphocytes # (Manual) D-Dimer ABG pH POC ABG pCO2 POC ABG pO2 ABG pO2 ABG HCO3 ABG O2 Saturation ABG Base Excess ABG Oxyhemoglobin ABG Sodium ABG Chloride ABG Glucose Oxyhemoglobin Carboxyhemoglobin Sodium Potassium Chloride Carbon Dioxide BUN 20 H Creatinine 0.2 L Glucose POC Glucose 245 H 66 L Hemoglobin A1c Magnesium Ferritin AST ALT Alkaline Phosphatase Lactate Dehydrogenase C-Reactive Protein Total Protein Albumin Arterial Blood Glucose Coronavirus (PCR) 06/22/21 06/22/21 06/22/21 11:03 16:07 22:03 WBC MCV MCH MCHC RDW Lymph % (Auto) [place] % (Auto) Eos % (Auto) Lymph # (Auto) [place] # (Auto) Eos # (Auto) Baso # (Auto) Seg Neutrophils % Seg Neuts % (Manual) Lymphocytes % (Manual) Seg Neutrophils # Seg Neutrophils # Man Lymphocytes # (Manual) D-Dimer ABG pH POC ABG pCO2 POC ABG pO2 ABG pO2 ABG HCO3 ABG O2 Saturation ABG Base Excess ABG Oxyhemoglobin ABG Sodium ABG Chloride ABG Glucose Oxyhemoglobin Carboxyhemoglobin Sodium Potassium Chloride Carbon Dioxide BUN Creatinine Glucose POC Glucose 184 H 326 H 138 H Hemoglobin A1c Magnesium Ferritin AST ALT Alkaline Phosphatase Lactate Dehydrogenase C-Reactive Protein Total Protein Albumin Arterial Blood Glucose Coronavirus (PCR) 06/23/21 06/23/21 06/23/21 07:19 10:34 16:35 WBC MCV MCH MCHC RDW Lymph % (Auto) [place] % (Auto) Eos % (Auto) Lymph # (Auto) [place] # (Auto) Eos # (Auto) Baso # (Auto) Seg Neutrophils % Seg Neuts % (Manual) Lymphocytes % (Manual) Seg Neutrophils # Seg Neutrophils # Man Lymphocytes # (Manual) D-Dimer ABG pH POC ABG pCO2 POC ABG pO2 ABG pO2 ABG HCO3 ABG O2 Saturation ABG Base Excess ABG Oxyhemoglobin ABG Sodium ABG Chloride ABG Glucose Oxyhemoglobin Carboxyhemoglobin Sodium Potassium Chloride Carbon Dioxide BUN Creatinine Glucose POC Glucose 69 L 218 H 326 H Hemoglobin A1c Magnesium Ferritin AST ALT Alkaline Phosphatase Lactate Dehydrogenase C-Reactive Protein Total Protein Albumin Arterial Blood Glucose Coronavirus (PCR) 06/23/21 06/24/21 06/24/21 22:44 11:41 16:54 WBC MCV MCH MCHC RDW Lymph % (Auto) [place] % (Auto) Eos % (Auto) Lymph # (Auto) [place] # (Auto) Eos # (Auto) Baso # (Auto) Seg Neutrophils % Seg Neuts % (Manual) Lymphocytes % (Manual) Seg Neutrophils # Seg Neutrophils # Man Lymphocytes # (Manual) D-Dimer ABG pH POC ABG pCO2 POC ABG pO2 ABG pO2 ABG HCO3 ABG O2 Saturation ABG Base Excess ABG Oxyhemoglobin ABG Sodium ABG Chloride ABG Glucose Oxyhemoglobin Carboxyhemoglobin Sodium Potassium Chloride Carbon Dioxide BUN Creatinine Glucose POC Glucose 252 H 217 H 357 H Hemoglobin A1c Magnesium Ferritin AST ALT Alkaline Phosphatase Lactate Dehydrogenase C-Reactive Protein Total Protein Albumin Arterial Blood Glucose Coronavirus (PCR) 06/24/21 06/25/21 06/25/21 20:40 11:51 16:47 WBC MCV MCH MCHC RDW Lymph % (Auto) [place] % (Auto) Eos % (Auto) Lymph # (Auto) [place] # (Auto) Eos # (Auto) Baso # (Auto) Seg Neutrophils % Seg Neuts % (Manual) Lymphocytes % (Manual) Seg Neutrophils # Seg Neutrophils # Man Lymphocytes # (Manual) D-Dimer ABG pH POC ABG pCO2 POC ABG pO2 ABG pO2 ABG HCO3 ABG O2 Saturation ABG Base Excess ABG Oxyhemoglobin ABG Sodium ABG Chloride ABG Glucose Oxyhemoglobin Carboxyhemoglobin Sodium Potassium Chloride Carbon Dioxide BUN Creatinine Glucose POC Glucose 239 H 182 H 229 H Hemoglobin A1c Magnesium Ferritin AST ALT Alkaline Phosphatase Lactate Dehydrogenase C-Reactive Protein Total Protein Albumin Arterial Blood Glucose Coronavirus (PCR) 06/25/21 06/26/21 06/26/21 22:27 07:20 12:19 WBC MCV MCH MCHC RDW Lymph % (Auto) [place] % (Auto) Eos % (Auto) Lymph # (Auto) [place] # (Auto) Eos # (Auto) Baso # (Auto) Seg Neutrophils % Seg Neuts % (Manual) Lymphocytes % (Manual) Seg Neutrophils # Seg Neutrophils # Man Lymphocytes # (Manual) D-Dimer ABG pH POC ABG pCO2 POC ABG pO2 ABG pO2 ABG HCO3 ABG O2 Saturation ABG Base Excess ABG Oxyhemoglobin ABG Sodium ABG Chloride ABG Glucose Oxyhemoglobin Carboxyhemoglobin Sodium Potassium 3.2 L D Chloride Carbon Dioxide BUN 20 H Creatinine 0.3 L Glucose POC Glucose 209 H 273 H Hemoglobin A1c Magnesium Ferritin AST ALT 77 H Alkaline Phosphatase Lactate Dehydrogenase C-Reactive Protein Total Protein Albumin 3.3 L Arterial Blood Glucose Coronavirus (PCR) 06/26/21 06/26/21 06/27/21 16:52 20:55 07:14 WBC MCV MCH MCHC RDW Lymph % (Auto) [place] % (Auto) Eos % (Auto) Lymph # (Auto) [place] # (Auto) Eos # (Auto) Baso # (Auto) Seg Neutrophils % Seg Neuts % (Manual) Lymphocytes % (Manual) Seg Neutrophils # Seg Neutrophils # Man Lymphocytes # (Manual) D-Dimer ABG pH POC ABG pCO2 POC ABG pO2 ABG pO2 ABG HCO3 ABG O2 Saturation ABG Base Excess ABG Oxyhemoglobin ABG Sodium ABG Chloride ABG Glucose Oxyhemoglobin Carboxyhemoglobin Sodium Potassium Chloride Carbon Dioxide 31 H BUN 19 H Creatinine 0.2 L Glucose 112 H POC Glucose 326 H 220 H Hemoglobin A1c Magnesium Ferritin AST ALT Alkaline Phosphatase Lactate Dehydrogenase C-Reactive Protein Total Protein Albumin Arterial Blood Glucose Coronavirus (PCR) 06/27/21 06/27/21 06/27/21 07:29 10:54 15:49 WBC MCV MCH MCHC RDW Lymph % (Auto) [place] % (Auto) Eos % (Auto) Lymph # (Auto) [place] # (Auto) Eos # (Auto) Baso # (Auto) Seg Neutrophils % Seg Neuts % (Manual) Lymphocytes % (Manual) Seg Neutrophils # Seg Neutrophils # Man Lymphocytes # (Manual) D-Dimer ABG pH POC ABG pCO2 POC ABG pO2 ABG pO2 ABG HCO3 ABG O2 Saturation ABG Base Excess ABG Oxyhemoglobin ABG Sodium ABG Chloride ABG Glucose Oxyhemoglobin Carboxyhemoglobin Sodium Potassium Chloride Carbon Dioxide BUN Creatinine Glucose POC Glucose 115 H 228 H 240 H Hemoglobin A1c Magnesium Ferritin AST ALT Alkaline Phosphatase Lactate Dehydrogenase C-Reactive Protein Total Protein Albumin Arterial Blood Glucose Coronavirus (PCR) 06/28/21 06/28/21 06/28/21 05:43 05:43 07:13 WBC MCV MCH 33 H MCHC RDW 19.8 H Lymph % (Auto) [place] % (Auto) Eos % (Auto) Lymph # (Auto) [place] # (Auto) Eos # (Auto) Baso # (Auto) Seg Neutrophils % Seg Neuts % (Manual) Lymphocytes % (Manual) Seg Neutrophils # Seg Neutrophils # Man Lymphocytes # (Manual) D-Dimer ABG pH POC ABG pCO2 POC ABG pO2 ABG pO2 ABG HCO3 ABG O2 Saturation ABG Base Excess ABG Oxyhemoglobin ABG Sodium ABG Chloride ABG Glucose Oxyhemoglobin Carboxyhemoglobin Sodium Potassium 3.3 L Chloride Carbon Dioxide BUN 22 H Creatinine 0.2 L Glucose POC Glucose 69 L Hemoglobin A1c Magnesium Ferritin AST ALT 63 H Alkaline Phosphatase Lactate Dehydrogenase C-Reactive Protein Total Protein Albumin 3.3 L Arterial Blood Glucose Coronavirus (PCR) 06/28/21 06/28/21 06/28/21 12:18 15:37 21:01 WBC MCV MCH MCHC RDW Lymph % (Auto) [place] % (Auto) Eos % (Auto) Lymph # (Auto) [place] # (Auto) Eos # (Auto) Baso # (Auto) Seg Neutrophils % Seg Neuts % (Manual) Lymphocytes % (Manual) Seg Neutrophils # Seg Neutrophils # Man Lymphocytes # (Manual) D-Dimer ABG pH POC ABG pCO2 POC ABG pO2 ABG pO2 ABG HCO3 ABG O2 Saturation ABG Base Excess ABG Oxyhemoglobin ABG Sodium ABG Chloride ABG Glucose Oxyhemoglobin Carboxyhemoglobin Sodium Potassium Chloride Carbon Dioxide BUN Creatinine Glucose POC Glucose 154 H 201 H 191 H Hemoglobin A1c Magnesium Ferritin AST ALT Alkaline Phosphatase Lactate Dehydrogenase C-Reactive Protein Total Protein Albumin Arterial Blood Glucose Coronavirus (PCR) 06/29/21 06/29/21 06/29/21 11:55 15:47 21:06 WBC MCV MCH MCHC RDW Lymph % (Auto) [place] % (Auto) Eos % (Auto) Lymph # (Auto) [place] # (Auto) Eos # (Auto) Baso # (Auto) Seg Neutrophils % Seg Neuts % (Manual) Lymphocytes % (Manual) Seg Neutrophils # Seg Neutrophils # Man Lymphocytes # (Manual) D-Dimer ABG pH POC ABG pCO2 POC ABG pO2 ABG pO2 ABG HCO3 ABG O2 Saturation ABG Base Excess ABG Oxyhemoglobin ABG Sodium ABG Chloride ABG Glucose Oxyhemoglobin Carboxyhemoglobin Sodium Potassium Chloride Carbon Dioxide BUN Creatinine Glucose POC Glucose 238 H 249 H 155 H Hemoglobin A1c Magnesium Ferritin AST ALT Alkaline Phosphatase Lactate Dehydrogenase C-Reactive Protein Total Protein Albumin Arterial Blood Glucose Coronavirus (PCR) 06/30/21 06/30/21 06/30/21 04:00 07:50 11:50 WBC MCV MCH MCHC RDW Lymph % (Auto) [place] % (Auto) Eos % (Auto) Lymph # (Auto) [place] # (Auto) Eos # (Auto) Baso # (Auto) Seg Neutrophils % Seg Neuts % (Manual) Lymphocytes % (Manual) Seg Neutrophils # Seg Neutrophils # Man Lymphocytes # (Manual) D-Dimer ABG pH POC ABG pCO2 POC ABG pO2 ABG pO2 ABG HCO3 ABG O2 Saturation ABG Base Excess ABG Oxyhemoglobin ABG Sodium ABG Chloride ABG Glucose Oxyhemoglobin Carboxyhemoglobin Sodium Potassium 3.5 L Chloride Carbon Dioxide BUN 18 H Creatinine 0.3 L Glucose 111 H POC Glucose 117 H 250 H Hemoglobin A1c Magnesium Ferritin AST ALT Alkaline Phosphatase Lactate Dehydrogenase C-Reactive Protein Total Protein Albumin Arterial Blood Glucose Coronavirus (PCR) 06/30/21 06/30/21 07/01/21 16:05 21:02 07:26 WBC MCV MCH MCHC RDW Lymph % (Auto) [place] % (Auto) Eos % (Auto) Lymph # (Auto) [place] # (Auto) Eos # (Auto) Baso # (Auto) Seg Neutrophils % Seg Neuts % (Manual) Lymphocytes % (Manual) Seg Neutrophils # Seg Neutrophils # Man Lymphocytes # (Manual) D-Dimer ABG pH POC ABG pCO2 POC ABG pO2 ABG pO2 ABG HCO3 ABG O2 Saturation ABG Base Excess ABG Oxyhemoglobin ABG Sodium ABG Chloride ABG Glucose Oxyhemoglobin Carboxyhemoglobin Sodium Potassium Chloride Carbon Dioxide BUN Creatinine Glucose POC Glucose 250 H 217 H 111 H Hemoglobin A1c Magnesium Ferritin AST ALT Alkaline Phosphatase Lactate Dehydrogenase C-Reactive Protein Total Protein Albumin Arterial Blood Glucose Coronavirus (PCR) 07/01/21 07/01/21 07/01/21 11:06 15:48 21:31 WBC MCV MCH MCHC RDW Lymph % (Auto) [place] % (Auto) Eos % (Auto) Lymph # (Auto) [place] # (Auto) Eos # (Auto) Baso # (Auto) Seg Neutrophils % Seg Neuts % (Manual) Lymphocytes % (Manual) Seg Neutrophils # Seg Neutrophils # Man Lymphocytes # (Manual) D-Dimer ABG pH POC ABG pCO2 POC ABG pO2 ABG pO2 ABG HCO3 ABG O2 Saturation ABG Base Excess ABG Oxyhemoglobin ABG Sodium ABG Chloride ABG Glucose Oxyhemoglobin Carboxyhemoglobin Sodium Potassium Chloride Carbon Dioxide BUN Creatinine Glucose POC Glucose 229 H 239 H 199 H Hemoglobin A1c Magnesium Ferritin AST ALT Alkaline Phosphatase Lactate Dehydrogenase C-Reactive Protein Total Protein Albumin Arterial Blood Glucose Coronavirus (PCR) 07/02/21 07/02/21 07/02/21 11:50 16:44 21:49 WBC MCV MCH MCHC RDW Lymph % (Auto) [place] % (Auto) Eos % (Auto) Lymph # (Auto) [place] # (Auto) Eos # (Auto) Baso # (Auto) Seg Neutrophils % Seg Neuts % (Manual) Lymphocytes % (Manual) Seg Neutrophils # Seg Neutrophils # Man Lymphocytes # (Manual) D-Dimer ABG pH POC ABG pCO2 POC ABG pO2 ABG pO2 ABG HCO3 ABG O2 Saturation ABG Base Excess ABG Oxyhemoglobin ABG Sodium ABG Chloride ABG Glucose Oxyhemoglobin Carboxyhemoglobin Sodium Potassium Chloride Carbon Dioxide BUN Creatinine Glucose POC Glucose 230 H 203 H 197 H Hemoglobin A1c Magnesium Ferritin AST ALT Alkaline Phosphatase Lactate Dehydrogenase C-Reactive Protein Total Protein Albumin Arterial Blood Glucose Coronavirus (PCR) 07/03/21 07/03/21 07/03/21 05:46 05:46 11:59 WBC MCV MCH MCHC RDW 19.6 H Lymph % (Auto) [place] % (Auto) Eos % (Auto) Lymph # (Auto) [place] # (Auto) Eos # (Auto) Baso # (Auto) Seg Neutrophils % Seg Neuts % (Manual) Lymphocytes % (Manual) Seg Neutrophils # Seg Neutrophils # Man Lymphocytes # (Manual) D-Dimer ABG pH POC ABG pCO2 POC ABG pO2 ABG pO2 ABG HCO3 ABG O2 Saturation ABG Base Excess ABG Oxyhemoglobin ABG Sodium ABG Chloride ABG Glucose Oxyhemoglobin Carboxyhemoglobin Sodium Potassium 3.2 L Chloride Carbon Dioxide BUN Creatinine 0.3 L Glucose POC Glucose 145 H Hemoglobin A1c Magnesium Ferritin AST ALT Alkaline Phosphatase Lactate Dehydrogenase C-Reactive Protein Total Protein Albumin Arterial Blood Glucose Coronavirus (PCR) 07/03/21 07/03/21 07/04/21 16:40 22:00 06:35 WBC MCV MCH MCHC RDW Lymph % (Auto) [place] % (Auto) Eos % (Auto) Lymph # (Auto) [place] # (Auto) Eos # (Auto) Baso # (Auto) Seg Neutrophils % Seg Neuts % (Manual) Lymphocytes % (Manual) Seg Neutrophils # Seg Neutrophils # Man Lymphocytes # (Manual) D-Dimer ABG pH POC ABG pCO2 POC ABG pO2 ABG pO2 ABG HCO3 ABG O2 Saturation ABG Base Excess ABG Oxyhemoglobin ABG Sodium ABG Chloride ABG Glucose Oxyhemoglobin Carboxyhemoglobin Sodium Potassium Chloride Carbon Dioxide BUN Creatinine 0.3 L Glucose 118 H POC Glucose 176 H 127 H Hemoglobin A1c Magnesium Ferritin AST ALT Alkaline Phosphatase Lactate Dehydrogenase C-Reactive Protein Total Protein Albumin Arterial Blood Glucose Coronavirus (PCR) 07/04/21 07/04/21 07/05/21 12:30 16:38 08:37 WBC MCV MCH MCHC RDW Lymph % (Auto) [place] % (Auto) Eos % (Auto) Lymph # (Auto) [place] # (Auto) Eos # (Auto) Baso # (Auto) Seg Neutrophils % Seg Neuts % (Manual) Lymphocytes % (Manual) Seg Neutrophils # Seg Neutrophils # Man Lymphocytes # (Manual) D-Dimer ABG pH POC ABG pCO2 POC ABG pO2 ABG pO2 ABG HCO3 ABG O2 Saturation ABG Base Excess ABG Oxyhemoglobin ABG Sodium ABG Chloride ABG Glucose Oxyhemoglobin Carboxyhemoglobin Sodium Potassium Chloride Carbon Dioxide BUN Creatinine Glucose POC Glucose 162 H 205 H 115 H Hemoglobin A1c Magnesium Ferritin AST ALT Alkaline Phosphatase Lactate Dehydrogenase C-Reactive Protein Total Protein Albumin Arterial Blood Glucose Coronavirus (PCR) 07/05/21 07/05/21 07/05/21 10:57 16:42 21:14 WBC MCV MCH MCHC RDW Lymph % (Auto) [place] % (Auto) Eos % (Auto) Lymph # (Auto) [place] # (Auto) Eos # (Auto) Baso # (Auto) Seg Neutrophils % Seg Neuts % (Manual) Lymphocytes % (Manual) Seg Neutrophils # Seg Neutrophils # Man Lymphocytes # (Manual) D-Dimer ABG pH POC ABG pCO2 POC ABG pO2 ABG pO2 ABG HCO3 ABG O2 Saturation ABG Base Excess ABG Oxyhemoglobin ABG Sodium ABG Chloride ABG Glucose Oxyhemoglobin Carboxyhemoglobin Sodium Potassium Chloride Carbon Dioxide BUN Creatinine Glucose POC Glucose 151 H 184 H 130 H Hemoglobin A1c Magnesium Ferritin AST ALT Alkaline Phosphatase Lactate Dehydrogenase C-Reactive Protein Total Protein Albumin Arterial Blood Glucose Coronavirus (PCR) 07/06/21 07/06/21 07/06/21 07:31 11:49 16:46 WBC MCV MCH MCHC RDW Lymph % (Auto) [place] % (Auto) Eos % (Auto) Lymph # (Auto) [place] # (Auto) Eos # (Auto) Baso # (Auto) Seg Neutrophils % Seg Neuts % (Manual) Lymphocytes % (Manual) Seg Neutrophils # Seg Neutrophils # Man Lymphocytes # (Manual) D-Dimer ABG pH POC ABG pCO2 POC ABG pO2 ABG pO2 ABG HCO3 ABG O2 Saturation ABG Base Excess ABG Oxyhemoglobin ABG Sodium ABG Chloride ABG Glucose Oxyhemoglobin Carboxyhemoglobin Sodium Potassium Chloride Carbon Dioxide BUN Creatinine Glucose POC Glucose 106 H 173 H 205 H Hemoglobin A1c Magnesium Ferritin AST ALT Alkaline Phosphatase Lactate Dehydrogenase C-Reactive Protein Total Protein Albumin Arterial Blood Glucose Coronavirus (PCR) 07/06/21 07/07/21 07/07/21 21:38 06:00 06:00 WBC 16.1 H MCV MCH MCHC RDW 18.8 H Lymph % (Auto) [place] % (Auto) Eos % (Auto) Lymph # (Auto) [place] # (Auto) 1.1 H Eos # (Auto) Baso # (Auto) 0.2 H Seg Neutrophils % 74.9 H Seg Neuts % (Manual) Lymphocytes % (Manual) Seg Neutrophils # 12.1 H Seg Neutrophils # Man Lymphocytes # (Manual) D-Dimer ABG pH POC ABG pCO2 POC ABG pO2 ABG pO2 ABG HCO3 ABG O2 Saturation ABG Base Excess ABG Oxyhemoglobin ABG Sodium ABG Chloride ABG Glucose Oxyhemoglobin Carboxyhemoglobin Sodium Potassium 3.5 L D Chloride Carbon Dioxide BUN 6 L Creatinine < 0.2 L Glucose 106 H POC Glucose 120 H Hemoglobin A1c Magnesium Ferritin AST ALT Alkaline Phosphatase Lactate Dehydrogenase C-Reactive Protein Total Protein Albumin Arterial Blood Glucose Coronavirus (PCR) 07/07/21 07/07/21 07/07/21 07:10 11:53 15:53 WBC MCV MCH MCHC RDW Lymph % (Auto) [place] % (Auto) Eos % (Auto) Lymph # (Auto) [place] # (Auto) Eos # (Auto) Baso # (Auto) Seg Neutrophils % Seg Neuts % (Manual) Lymphocytes % (Manual) Seg Neutrophils # Seg Neutrophils # Man Lymphocytes # (Manual) D-Dimer ABG pH POC ABG pCO2 POC ABG pO2 ABG pO2 ABG HCO3 ABG O2 Saturation ABG Base Excess ABG Oxyhemoglobin ABG Sodium ABG Chloride ABG Glucose Oxyhemoglobin Carboxyhemoglobin Sodium Potassium Chloride Carbon Dioxide BUN Creatinine Glucose POC Glucose 132 H 169 H 242 H Hemoglobin A1c Magnesium Ferritin AST ALT Alkaline Phosphatase Lactate Dehydrogenase C-Reactive Protein Total Protein Albumin Arterial Blood Glucose Coronavirus (PCR) 07/07/21 07/08/21 07/08/21 21:41 08:09 12:20 WBC MCV MCH MCHC RDW Lymph % (Auto) [place] % (Auto) Eos % (Auto) Lymph # (Auto) [place] # (Auto) Eos # (Auto) Baso # (Auto) Seg Neutrophils % Seg Neuts % (Manual) Lymphocytes % (Manual) Seg Neutrophils # Seg Neutrophils # Man Lymphocytes # (Manual) D-Dimer ABG pH POC ABG pCO2 POC ABG pO2 ABG pO2 ABG HCO3 ABG O2 Saturation ABG Base Excess ABG Oxyhemoglobin ABG Sodium ABG Chloride ABG Glucose Oxyhemoglobin Carboxyhemoglobin Sodium Potassium Chloride Carbon Dioxide BUN Creatinine Glucose POC Glucose 128 H 132 H 179 H Hemoglobin A1c Magnesium Ferritin AST ALT Alkaline Phosphatase Lactate Dehydrogenase C-Reactive Protein Total Protein Albumin Arterial Blood Glucose Coronavirus (PCR) 07/08/21 07/08/21 07/08/21 16:37 21:45 22:44 WBC MCV MCH MCHC RDW Lymph % (Auto) [place] % (Auto) Eos % (Auto) Lymph # (Auto) [place] # (Auto) Eos # (Auto) Baso # (Auto) Seg Neutrophils % Seg Neuts % (Manual) Lymphocytes % (Manual) Seg Neutrophils # Seg Neutrophils # Man Lymphocytes # (Manual) D-Dimer ABG pH POC ABG pCO2 POC ABG pO2 ABG pO2 ABG HCO3 ABG O2 Saturation ABG Base Excess ABG Oxyhemoglobin ABG Sodium ABG Chloride ABG Glucose Oxyhemoglobin Carboxyhemoglobin Sodium Potassium Chloride Carbon Dioxide BUN Creatinine Glucose POC Glucose 192 H 51 L 137 H Hemoglobin A1c Magnesium Ferritin AST ALT Alkaline Phosphatase Lactate Dehydrogenase C-Reactive Protein Total Protein Albumin Arterial Blood Glucose Coronavirus (PCR) 07/09/21 07/09/21 07/09/21 04:45 04:45 04:45 WBC MCV MCH MCHC RDW 18.3 H Lymph % (Auto) [place] % (Auto) Eos % (Auto) Lymph # (Auto) [place] # (Auto) Eos # (Auto) Baso # (Auto) Seg Neutrophils % Seg Neuts % (Manual) 82.0 H Lymphocytes % (Manual) 13.0 L Seg Neutrophils # Seg Neutrophils # Man 7.8 H Lymphocytes # (Manual) D-Dimer 638.35 H ABG pH POC ABG pCO2 POC ABG pO2 ABG pO2 ABG HCO3 ABG O2 Saturation ABG Base Excess ABG Oxyhemoglobin ABG Sodium ABG Chloride ABG Glucose Oxyhemoglobin Carboxyhemoglobin Sodium Potassium Chloride 96.9 L Carbon Dioxide 35 H BUN Creatinine 0.2 L Glucose 135 H POC Glucose Hemoglobin A1c Magnesium Ferritin AST ALT Alkaline Phosphatase Lactate Dehydrogenase C-Reactive Protein 4.30 H Total Protein Albumin Arterial Blood Glucose Coronavirus (PCR) 07/09/21 07/09/21 07/09/21 05:19 07:36 11:16 WBC MCV MCH MCHC RDW Lymph % (Auto) [place] % (Auto) Eos % (Auto) Lymph # (Auto) [place] # (Auto) Eos # (Auto) Baso # (Auto) Seg Neutrophils % Seg Neuts % (Manual) Lymphocytes % (Manual) Seg Neutrophils # Seg Neutrophils # Man Lymphocytes # (Manual) D-Dimer ABG pH POC ABG pCO2 POC ABG pO2 ABG pO2 ABG HCO3 ABG O2 Saturation ABG Base Excess ABG Oxyhemoglobin ABG Sodium ABG Chloride ABG Glucose Oxyhemoglobin Carboxyhemoglobin Sodium Potassium Chloride Carbon Dioxide BUN Creatinine Glucose POC Glucose 135 H 148 H 212 H Hemoglobin A1c Magnesium Ferritin AST ALT Alkaline Phosphatase Lactate Dehydrogenase C-Reactive Protein Total Protein Albumin Arterial Blood Glucose Coronavirus (PCR) 07/09/21 07/09/21 07/10/21 15:21 21:12 05:40 WBC MCV MCH MCHC RDW Lymph % (Auto) [place] % (Auto) Eos % (Auto) Lymph # (Auto) [place] # (Auto) Eos # (Auto) Baso # (Auto) Seg Neutrophils % Seg Neuts % (Manual) Lymphocytes % (Manual) Seg Neutrophils # Seg Neutrophils # Man Lymphocytes # (Manual) D-Dimer ABG pH POC ABG pCO2 POC ABG pO2 ABG pO2 ABG HCO3 ABG O2 Saturation ABG Base Excess ABG Oxyhemoglobin ABG Sodium ABG Chloride ABG Glucose Oxyhemoglobin Carboxyhemoglobin Sodium Potassium 3.3 L Chloride 95.1 L Carbon Dioxide 39 H BUN Creatinine 0.2 L Glucose 122 H POC Glucose 128 H 196 H Hemoglobin A1c Magnesium Ferritin AST ALT Alkaline Phosphatase Lactate Dehydrogenase C-Reactive Protein Total Protein Albumin Arterial Blood Glucose Coronavirus (PCR) 07/10/21 07/10/21 07/10/21 07:38 11:15 16:29 WBC MCV MCH MCHC RDW Lymph % (Auto) [place] % (Auto) Eos % (Auto) Lymph # (Auto) [place] # (Auto) Eos # (Auto) Baso # (Auto) Seg Neutrophils % Seg Neuts % (Manual) Lymphocytes % (Manual) Seg Neutrophils # Seg Neutrophils # Man Lymphocytes # (Manual) D-Dimer ABG pH POC ABG pCO2 POC ABG pO2 ABG pO2 ABG HCO3 ABG O2 Saturation ABG Base Excess ABG Oxyhemoglobin ABG Sodium ABG Chloride ABG Glucose Oxyhemoglobin Carboxyhemoglobin Sodium Potassium Chloride Carbon Dioxide BUN Creatinine Glucose POC Glucose 128 H 175 H 174 H Hemoglobin A1c Magnesium Ferritin AST ALT Alkaline Phosphatase Lactate Dehydrogenase C-Reactive Protein Total Protein Albumin Arterial Blood Glucose Coronavirus (PCR) 07/10/21 07/11/21 07/11/21 20:49 05:50 12:08 WBC MCV MCH MCHC RDW Lymph % (Auto) [place] % (Auto) Eos % (Auto) Lymph # (Auto) [place] # (Auto) Eos # (Auto) Baso # (Auto) Seg Neutrophils % Seg Neuts % (Manual) Lymphocytes % (Manual) Seg Neutrophils # Seg Neutrophils # Man Lymphocytes # (Manual) D-Dimer ABG pH POC ABG pCO2 POC ABG pO2 ABG pO2 ABG HCO3 ABG O2 Saturation ABG Base Excess ABG Oxyhemoglobin ABG Sodium ABG Chloride ABG Glucose Oxyhemoglobin Carboxyhemoglobin Sodium Potassium Chloride 97.3 L Carbon Dioxide 34 H BUN Creatinine 0.2 L Glucose 109 H POC Glucose 142 H 220 H Hemoglobin A1c Magnesium Ferritin AST ALT Alkaline Phosphatase Lactate Dehydrogenase C-Reactive Protein Total Protein Albumin Arterial Blood Glucose Coronavirus (PCR) 07/11/21 07/11/21 07/12/21 17:09 21:55 07:36 WBC MCV MCH MCHC RDW Lymph % (Auto) [place] % (Auto) Eos % (Auto) Lymph # (Auto) [place] # (Auto) Eos # (Auto) Baso # (Auto) Seg Neutrophils % Seg Neuts % (Manual) Lymphocytes % (Manual) Seg Neutrophils # Seg Neutrophils # Man Lymphocytes # (Manual) D-Dimer ABG pH POC ABG pCO2 POC ABG pO2 ABG pO2 ABG HCO3 ABG O2 Saturation ABG Base Excess ABG Oxyhemoglobin ABG Sodium ABG Chloride ABG Glucose Oxyhemoglobin Carboxyhemoglobin Sodium Potassium Chloride Carbon Dioxide BUN Creatinine Glucose POC Glucose 219 H 124 H 114 H Hemoglobin A1c Magnesium Ferritin AST ALT Alkaline Phosphatase Lactate Dehydrogenase C-Reactive Protein Total Protein Albumin Arterial Blood Glucose Coronavirus (PCR) 07/12/21 07/12/21 07/12/21 11:08 15:43 22:20 WBC MCV MCH MCHC RDW Lymph % (Auto) [place] % (Auto) Eos % (Auto) Lymph # (Auto) [place] # (Auto) Eos # (Auto) Baso # (Auto) Seg Neutrophils % Seg Neuts % (Manual) Lymphocytes % (Manual) Seg Neutrophils # Seg Neutrophils # Man Lymphocytes # (Manual) D-Dimer ABG pH POC ABG pCO2 POC ABG pO2 ABG pO2 ABG HCO3 ABG O2 Saturation ABG Base Excess ABG Oxyhemoglobin ABG Sodium ABG Chloride ABG Glucose Oxyhemoglobin Carboxyhemoglobin Sodium Potassium Chloride Carbon Dioxide BUN Creatinine Glucose POC Glucose 195 H 276 H 189 H Hemoglobin A1c Magnesium Ferritin AST ALT Alkaline Phosphatase Lactate Dehydrogenase C-Reactive Protein Total Protein Albumin Arterial Blood Glucose Coronavirus (PCR) 07/13/21 07/13/21 07/13/21 08:01 08:08 10:17 WBC MCV MCH MCHC RDW Lymph % (Auto) [place] % (Auto) Eos % (Auto) Lymph # (Auto) [place] # (Auto) Eos # (Auto) Baso # (Auto) Seg Neutrophils % Seg Neuts % (Manual) Lymphocytes % (Manual) Seg Neutrophils # Seg Neutrophils # Man Lymphocytes # (Manual) D-Dimer ABG pH POC ABG pCO2 POC ABG pO2 ABG pO2 ABG HCO3 ABG O2 Saturation ABG Base Excess ABG Oxyhemoglobin ABG Sodium ABG Chloride ABG Glucose Oxyhemoglobin Carboxyhemoglobin Sodium Potassium Chloride 94.4 L Carbon Dioxide 34 H BUN Creatinine 0.3 L Glucose 149 H POC Glucose 132 H 265 H Hemoglobin A1c Magnesium Ferritin AST ALT Alkaline Phosphatase Lactate Dehydrogenase C-Reactive Protein Total Protein Albumin Arterial Blood Glucose Coronavirus (PCR) 07/13/21 07/13/21 07/14/21 17:58 21:41 07:34 WBC MCV MCH MCHC RDW Lymph % (Auto) [place] % (Auto) Eos % (Auto) Lymph # (Auto) [place] # (Auto) Eos # (Auto) Baso # (Auto) Seg Neutrophils % Seg Neuts % (Manual) Lymphocytes % (Manual) Seg Neutrophils # Seg Neutrophils # Man Lymphocytes # (Manual) D-Dimer ABG pH POC ABG pCO2 POC ABG pO2 ABG pO2 ABG HCO3 ABG O2 Saturation ABG Base Excess ABG Oxyhemoglobin ABG Sodium ABG Chloride ABG Glucose Oxyhemoglobin Carboxyhemoglobin Sodium Potassium Chloride Carbon Dioxide BUN Creatinine Glucose POC Glucose 217 H 223 H 116 H Hemoglobin A1c Magnesium Ferritin AST ALT Alkaline Phosphatase Lactate Dehydrogenase C-Reactive Protein Total Protein Albumin Arterial Blood Glucose Coronavirus (PCR) 07/14/21 07/14/21 07/14/21 10:50 17:33 20:51 WBC MCV MCH MCHC RDW Lymph % (Auto) [place] % (Auto) Eos % (Auto) Lymph # (Auto) [place] # (Auto) Eos # (Auto) Baso # (Auto) Seg Neutrophils % Seg Neuts % (Manual) Lymphocytes % (Manual) Seg Neutrophils # Seg Neutrophils # Man Lymphocytes # (Manual) D-Dimer ABG pH POC ABG pCO2 POC ABG pO2 ABG pO2 ABG HCO3 ABG O2 Saturation ABG Base Excess ABG Oxyhemoglobin ABG Sodium ABG Chloride ABG Glucose Oxyhemoglobin Carboxyhemoglobin Sodium Potassium Chloride Carbon Dioxide BUN Creatinine Glucose POC Glucose 191 H 173 H 132 H Hemoglobin A1c Magnesium Ferritin AST ALT Alkaline Phosphatase Lactate Dehydrogenase C-Reactive Protein Total Protein Albumin Arterial Blood Glucose Coronavirus (PCR) 07/15/21 07/15/21 07/15/21 04:00 07:59 12:31 WBC MCV MCH MCHC RDW Lymph % (Auto) [place] % (Auto) Eos % (Auto) Lymph # (Auto) [place] # (Auto) Eos # (Auto) Baso # (Auto) Seg Neutrophils % Seg Neuts % (Manual) Lymphocytes % (Manual) Seg Neutrophils # Seg Neutrophils # Man Lymphocytes # (Manual) D-Dimer ABG pH POC ABG pCO2 POC ABG pO2 ABG pO2 ABG HCO3 ABG O2 Saturation ABG Base Excess ABG Oxyhemoglobin ABG Sodium ABG Chloride ABG Glucose Oxyhemoglobin Carboxyhemoglobin Sodium Potassium Chloride 96.0 L Carbon Dioxide 32 H BUN Creatinine 0.3 L Glucose 208 H POC Glucose 117 H 195 H Hemoglobin A1c Magnesium Ferritin AST ALT Alkaline Phosphatase Lactate Dehydrogenase C-Reactive Protein Total Protein Albumin Arterial Blood Glucose Coronavirus (PCR) 07/15/21 07/15/21 07/16/21 18:00 20:57 04:40 WBC MCV MCH MCHC RDW 17.1 H Lymph % (Auto) [place] % (Auto) Eos % (Auto) Lymph # (Auto) [place] # (Auto) Eos # (Auto) Baso # (Auto) Seg Neutrophils % Seg Neuts % (Manual) Lymphocytes % (Manual) Seg Neutrophils # Seg Neutrophils # Man Lymphocytes # (Manual) D-Dimer ABG pH POC ABG pCO2 POC ABG pO2 ABG pO2 ABG HCO3 ABG O2 Saturation ABG Base Excess ABG Oxyhemoglobin ABG Sodium ABG Chloride ABG Glucose Oxyhemoglobin Carboxyhemoglobin Sodium Potassium Chloride Carbon Dioxide BUN Creatinine Glucose POC Glucose 217 H 111 H Hemoglobin A1c Magnesium Ferritin AST ALT Alkaline Phosphatase Lactate Dehydrogenase C-Reactive Protein Total Protein Albumin Arterial Blood Glucose Coronavirus (PCR) 07/16/21 07/16/21 07/16/21 04:40 07:08 11:11 WBC MCV MCH MCHC RDW Lymph % (Auto) [place] % (Auto) Eos % (Auto) Lymph # (Auto) [place] # (Auto) Eos # (Auto) Baso # (Auto) Seg Neutrophils % Seg Neuts % (Manual) Lymphocytes % (Manual) Seg Neutrophils # Seg Neutrophils # Man Lymphocytes # (Manual) D-Dimer ABG pH POC ABG pCO2 POC ABG pO2 ABG pO2 ABG HCO3 ABG O2 Saturation ABG Base Excess ABG Oxyhemoglobin ABG Sodium ABG Chloride ABG Glucose Oxyhemoglobin Carboxyhemoglobin Sodium Potassium 3.4 L Chloride 94.6 L Carbon Dioxide 36 H BUN Creatinine < 0.2 L Glucose 101 H POC Glucose 118 H 184 H Hemoglobin A1c Magnesium Ferritin AST ALT Alkaline Phosphatase Lactate Dehydrogenase C-Reactive Protein Total Protein Albumin Arterial Blood Glucose Coronavirus (PCR) 07/16/21 07/16/21 07/17/21 17:29 22:01 08:10 WBC MCV MCH MCHC RDW Lymph % (Auto) [place] % (Auto) Eos % (Auto) Lymph # (Auto) [place] # (Auto) Eos # (Auto) Baso # (Auto) Seg Neutrophils % Seg Neuts % (Manual) Lymphocytes % (Manual) Seg Neutrophils # Seg Neutrophils # Man Lymphocytes # (Manual) D-Dimer ABG pH POC ABG pCO2 POC ABG pO2 ABG pO2 ABG HCO3 ABG O2 Saturation ABG Base Excess ABG Oxyhemoglobin ABG Sodium ABG Chloride ABG Glucose Oxyhemoglobin Carboxyhemoglobin Sodium Potassium Chloride Carbon Dioxide BUN Creatinine Glucose POC Glucose 200 H 147 H 118 H Hemoglobin A1c Magnesium Ferritin AST ALT Alkaline Phosphatase Lactate Dehydrogenase C-Reactive Protein Total Protein Albumin Arterial Blood Glucose Coronavirus (PCR) 11/03/21 11/03/21 11/03/21 11:38 16:24 21:13 WBC MCV MCH MCHC RDW Lymph % (Auto) [place] % (Auto) Eos % (Auto) Lymph # (Auto) [place] # (Auto) Eos # (Auto) Baso # (Auto) Seg Neutrophils % Seg Neuts % (Manual) Lymphocytes % (Manual) Seg Neutrophils # Seg Neutrophils # Man Lymphocytes # (Manual) D-Dimer ABG pH POC ABG pCO2 POC ABG pO2 ABG pO2 ABG HCO3 ABG O2 Saturation ABG Base Excess ABG Oxyhemoglobin ABG Sodium ABG Chloride ABG Glucose Oxyhemoglobin Carboxyhemoglobin Sodium Potassium Chloride Carbon Dioxide BUN Creatinine Glucose POC Glucose 151 H 268 H 115 H Hemoglobin A1c Magnesium Ferritin AST ALT Alkaline Phosphatase Lactate Dehydrogenase C-Reactive Protein Total Protein Albumin Arterial Blood Glucose Coronavirus (PCR) 07/18/21 07/18/21 07/18/21 07:58 12:29 20:24 WBC MCV MCH MCHC RDW Lymph % (Auto) [place] % (Auto) Eos % (Auto) Lymph # (Auto) [place] # (Auto) Eos # (Auto) Baso # (Auto) Seg Neutrophils % Seg Neuts % (Manual) Lymphocytes % (Manual) Seg Neutrophils # Seg Neutrophils # Man Lymphocytes # (Manual) D-Dimer ABG pH POC ABG pCO2 POC ABG pO2 ABG pO2 ABG HCO3 ABG O2 Saturation ABG Base Excess ABG Oxyhemoglobin ABG Sodium ABG Chloride ABG Glucose Oxyhemoglobin Carboxyhemoglobin Sodium Potassium Chloride Carbon Dioxide BUN Creatinine Glucose POC Glucose 135 H 139 H 130 H Hemoglobin A1c Magnesium Ferritin AST ALT Alkaline Phosphatase Lactate Dehydrogenase C-Reactive Protein Total Protein Albumin Arterial Blood Glucose Coronavirus (PCR) 07/19/21 07/19/21 07/19/21 06:55 06:55 07:54 WBC 14.5 H MCV MCH MCHC RDW 17.3 H Lymph % (Auto) 9.6 L [place] % (Auto) Eos % (Auto) Lymph # (Auto) [place] # (Auto) Eos # (Auto) 0.6 H Baso # (Auto) Seg Neutrophils % 80.3 H Seg Neuts % (Manual) Lymphocytes % (Manual) Seg Neutrophils # 11.7 H Seg Neutrophils # Man Lymphocytes # (Manual) D-Dimer ABG pH POC ABG pCO2 67.9 H POC ABG pO2 131.0 H ABG pO2 ABG HCO3 ABG O2 Saturation ABG Base Excess ABG Oxyhemoglobin ABG Sodium ABG Chloride 97.0 L ABG Glucose 133 H Oxyhemoglobin Carboxyhemoglobin Sodium Potassium Chloride 95.3 L Carbon Dioxide 35 H BUN Creatinine < 0.2 L Glucose 138 H POC Glucose Hemoglobin A1c Magnesium Ferritin AST ALT Alkaline Phosphatase Lactate Dehydrogenase C-Reactive Protein Total Protein Albumin Arterial Blood Glucose 133 H Coronavirus (PCR) 07/19/21 07/19/21 07/19/21 08:10 11:43 17:04 WBC MCV MCH MCHC RDW Lymph % (Auto) [place] % (Auto) Eos % (Auto) Lymph # (Auto) [place] # (Auto) Eos # (Auto) Baso # (Auto) Seg Neutrophils % Seg Neuts % (Manual) Lymphocytes % (Manual) Seg Neutrophils # Seg Neutrophils # Man Lymphocytes # (Manual) D-Dimer ABG pH POC ABG pCO2 POC ABG pO2 ABG pO2 ABG HCO3 ABG O2 Saturation ABG Base Excess ABG Oxyhemoglobin ABG Sodium ABG Chloride ABG Glucose Oxyhemoglobin Carboxyhemoglobin Sodium Potassium Chloride Carbon Dioxide BUN Creatinine Glucose POC Glucose 129 H 126 H 108 H Hemoglobin A1c Magnesium Ferritin AST ALT Alkaline Phosphatase Lactate Dehydrogenase C-Reactive Protein Total Protein Albumin Arterial Blood Glucose Coronavirus (PCR) 07/19/21 07/20/21 07/20/21 21:10 04:00 04:00 WBC MCV MCH MCHC RDW 17.0 H Lymph % (Auto) [place] % (Auto) 8.9 H Eos % (Auto) 6.3 H Lymph # (Auto) [place] # (Auto) 0.9 H Eos # (Auto) 0.6 H Baso # (Auto) Seg Neutrophils % 70.2 H Seg Neuts % (Manual) Lymphocytes % (Manual) Seg Neutrophils # Seg Neutrophils # Man Lymphocytes # (Manual) D-Dimer ABG pH POC ABG pCO2 POC ABG pO2 ABG pO2 ABG HCO3 ABG O2 Saturation ABG Base Excess ABG Oxyhemoglobin ABG Sodium ABG Chloride ABG Glucose Oxyhemoglobin Carboxyhemoglobin Sodium Potassium Chloride 96.7 L Carbon Dioxide 36 H BUN Creatinine 0.2 L Glucose 102 H POC Glucose 109 H Hemoglobin A1c Magnesium Ferritin AST ALT Alkaline Phosphatase Lactate Dehydrogenase C-Reactive Protein Total Protein Albumin 3.2 L Arterial Blood Glucose Coronavirus (PCR) 07/20/21 07/20/21 07/20/21 11:15 15:34 17:01 WBC MCV MCH MCHC RDW Lymph % (Auto) [place] % (Auto) Eos % (Auto) Lymph # (Auto) [place] # (Auto) Eos # (Auto) Baso # (Auto) Seg Neutrophils % Seg Neuts % (Manual) Lymphocytes % (Manual) Seg Neutrophils # Seg Neutrophils # Man Lymphocytes # (Manual) D-Dimer ABG pH POC ABG pCO2 POC ABG pO2 ABG pO2 ABG HCO3 ABG O2 Saturation ABG Base Excess ABG Oxyhemoglobin ABG Sodium ABG Chloride ABG Glucose Oxyhemoglobin Carboxyhemoglobin Sodium Potassium Chloride Carbon Dioxide BUN Creatinine Glucose POC Glucose 109 H 152 H 125 H Hemoglobin A1c Magnesium Ferritin AST ALT Alkaline Phosphatase Lactate Dehydrogenase C-Reactive Protein Total Protein Albumin Arterial Blood Glucose Coronavirus (PCR) 07/20/21 07/21/21 07/21/21 21:00 04:48 04:48 WBC 12.8 H MCV MCH MCHC RDW 16.8 H Lymph % (Auto) 9.3 L [place] % (Auto) Eos % (Auto) Lymph # (Auto) [place] # (Auto) 0.9 H Eos # (Auto) Baso # (Auto) Seg Neutrophils % 81.1 H Seg Neuts % (Manual) Lymphocytes % (Manual) Seg Neutrophils # 10.4 H Seg Neutrophils # Man Lymphocytes # (Manual) D-Dimer ABG pH POC ABG pCO2 POC ABG pO2 ABG pO2 ABG HCO3 ABG O2 Saturation ABG Base Excess ABG Oxyhemoglobin ABG Sodium ABG Chloride ABG Glucose Oxyhemoglobin Carboxyhemoglobin Sodium Potassium Chloride 95.4 L Carbon Dioxide 33 H BUN 6 L Creatinine < 0.2 L Glucose 155 H POC Glucose 211 H Hemoglobin A1c Magnesium 1.60 L Ferritin AST ALT Alkaline Phosphatase Lactate Dehydrogenase C-Reactive Protein Total Protein Albumin Arterial Blood Glucose Coronavirus (PCR) 07/21/21 07/21/21 07/21/21 07:52 11:05 17:01 WBC MCV MCH MCHC RDW Lymph % (Auto) [place] % (Auto) Eos % (Auto) Lymph # (Auto) [place] # (Auto) Eos # (Auto) Baso # (Auto) Seg Neutrophils % Seg Neuts % (Manual) Lymphocytes % (Manual) Seg Neutrophils # Seg Neutrophils # Man Lymphocytes # (Manual) D-Dimer ABG pH POC ABG pCO2 POC ABG pO2 ABG pO2 ABG HCO3 ABG O2 Saturation ABG Base Excess ABG Oxyhemoglobin ABG Sodium ABG Chloride ABG Glucose Oxyhemoglobin Carboxyhemoglobin Sodium Potassium Chloride Carbon Dioxide BUN Creatinine Glucose POC Glucose 116 H 207 H 133 H Hemoglobin A1c Magnesium Ferritin AST ALT Alkaline Phosphatase Lactate Dehydrogenase C-Reactive Protein Total Protein Albumin Arterial Blood Glucose Coronavirus (PCR) 07/21/21 07/22/21 07/22/21 21:17 07:55 07:55 WBC MCV MCH MCHC RDW 16.5 H Lymph % (Auto) [place] % (Auto) 8.6 H Eos % (Auto) Lymph # (Auto) [place] # (Auto) Eos # (Auto) Baso # (Auto) Seg Neutrophils % 72.3 H Seg Neuts % (Manual) Lymphocytes % (Manual) Seg Neutrophils # Seg Neutrophils # Man Lymphocytes # (Manual) D-Dimer ABG pH POC ABG pCO2 POC ABG pO2 ABG pO2 ABG HCO3 ABG O2 Saturation ABG Base Excess ABG Oxyhemoglobin ABG Sodium ABG Chloride ABG Glucose Oxyhemoglobin Carboxyhemoglobin Sodium Potassium Chloride 94.6 L Carbon Dioxide 42 H* D BUN 5 L Creatinine < 0.2 L Glucose POC Glucose 152 H Hemoglobin A1c Magnesium Ferritin AST ALT Alkaline Phosphatase Lactate Dehydrogenase C-Reactive Protein Total Protein Albumin Arterial Blood Glucose Coronavirus (PCR) 07/22/21 07/22/21 07/22/21 11:25 12:05 15:40 WBC MCV MCH MCHC RDW Lymph % (Auto) [place] % (Auto) Eos % (Auto) Lymph # (Auto) [place] # (Auto) Eos # (Auto) Baso # (Auto) Seg Neutrophils % Seg Neuts % (Manual) Lymphocytes % (Manual) Seg Neutrophils # Seg Neutrophils # Man Lymphocytes # (Manual) D-Dimer ABG pH 7.338 L POC ABG pCO2 POC ABG pO2 ABG pO2 66.1 L ABG HCO3 45.0 H ABG O2 Saturation 94.2 L ABG Base Excess 15.2 H ABG Oxyhemoglobin ABG Sodium ABG Chloride ABG Glucose Oxyhemoglobin 91.9 L Carboxyhemoglobin Sodium Potassium Chloride Carbon Dioxide BUN Creatinine Glucose POC Glucose 146 H 219 H Hemoglobin A1c Magnesium Ferritin AST ALT Alkaline Phosphatase Lactate Dehydrogenase C-Reactive Protein Total Protein Albumin Arterial Blood Glucose Coronavirus (PCR) 07/22/21 07/23/21 07/23/21 21:26 04:35 04:35 WBC MCV 98 H MCH MCHC RDW 16.2 H Lymph % (Auto) 7.9 L [place] % (Auto) Eos % (Auto) Lymph # (Auto) 0.9 L [place] # (Auto) Eos # (Auto) Baso # (Auto) Seg Neutrophils % 85.3 H Seg Neuts % (Manual) Lymphocytes % (Manual) Seg Neutrophils # 9.2 H Seg Neutrophils # Man Lymphocytes # (Manual) D-Dimer ABG pH POC ABG pCO2 POC ABG pO2 ABG pO2 ABG HCO3 ABG O2 Saturation ABG Base Excess ABG Oxyhemoglobin ABG Sodium ABG Chloride ABG Glucose Oxyhemoglobin Carboxyhemoglobin Sodium Potassium Chloride 93.9 L Carbon Dioxide 44 H* BUN Creatinine < 0.2 L Glucose 149 H POC Glucose 131 H Hemoglobin A1c Magnesium Ferritin AST ALT Alkaline Phosphatase Lactate Dehydrogenase C-Reactive Protein Total Protein Albumin Arterial Blood Glucose Coronavirus (PCR) 07/23/21 07/23/21 07/23/21 07:20 11:34 16:11 WBC MCV MCH MCHC RDW Lymph % (Auto) [place] % (Auto) Eos % (Auto) Lymph # (Auto) [place] # (Auto) Eos # (Auto) Baso # (Auto) Seg Neutrophils % Seg Neuts % (Manual) Lymphocytes % (Manual) Seg Neutrophils # Seg Neutrophils # Man Lymphocytes # (Manual) D-Dimer ABG pH POC ABG pCO2 POC ABG pO2 ABG pO2 ABG HCO3 ABG O2 Saturation ABG Base Excess ABG Oxyhemoglobin ABG Sodium ABG Chloride ABG Glucose Oxyhemoglobin Carboxyhemoglobin Sodium Potassium Chloride Carbon Dioxide BUN Creatinine Glucose POC Glucose 116 H 172 H 110 H Hemoglobin A1c Magnesium Ferritin AST ALT Alkaline Phosphatase Lactate Dehydrogenase C-Reactive Protein Total Protein Albumin Arterial Blood Glucose Coronavirus (PCR) 07/23/21 07/23/21 07/24/21 18:11 21:33 04:10 WBC MCV MCH MCHC RDW Lymph % (Auto) [place] % (Auto) Eos % (Auto) Lymph # (Auto) [place] # (Auto) Eos # (Auto) Baso # (Auto) Seg Neutrophils % Seg Neuts % (Manual) Lymphocytes % (Manual) Seg Neutrophils # Seg Neutrophils # Man Lymphocytes # (Manual) D-Dimer ABG pH POC ABG pCO2 78.3 H POC ABG pO2 80.7 L ABG pO2 ABG HCO3 ABG O2 Saturation ABG Base Excess ABG Oxyhemoglobin ABG Sodium 134.9 L ABG Chloride 89.0 L ABG Glucose 200 H Oxyhemoglobin Carboxyhemoglobin Sodium Potassium 3.5 L D Chloride 92.4 L Carbon Dioxide 42 H* BUN Creatinine < 0.2 L Glucose 123 H POC Glucose 108 H Hemoglobin A1c Magnesium Ferritin AST ALT Alkaline Phosphatase Lactate Dehydrogenase C-Reactive Protein Total Protein Albumin Arterial Blood Glucose 200 H Coronavirus (PCR) 07/24/21 07/24/21 07/24/21 11:01 16:56 22:06 WBC MCV MCH MCHC RDW Lymph % (Auto) [place] % (Auto) Eos % (Auto) Lymph # (Auto) [place] # (Auto) Eos # (Auto) Baso # (Auto) Seg Neutrophils % Seg Neuts % (Manual) Lymphocytes % (Manual) Seg Neutrophils # Seg Neutrophils # Man Lymphocytes # (Manual) D-Dimer ABG pH POC ABG pCO2 POC ABG pO2 ABG pO2 ABG HCO3 ABG O2 Saturation ABG Base Excess ABG Oxyhemoglobin ABG Sodium ABG Chloride ABG Glucose Oxyhemoglobin Carboxyhemoglobin Sodium Potassium Chloride Carbon Dioxide BUN Creatinine Glucose POC Glucose 171 H 111 H 136 H Hemoglobin A1c Magnesium Ferritin AST ALT Alkaline Phosphatase Lactate Dehydrogenase C-Reactive Protein Total Protein Albumin Arterial Blood Glucose Coronavirus (PCR) 07/25/21 07/25/21 07/25/21 07:40 10:59 11:58 WBC MCV MCH MCHC RDW Lymph % (Auto) [place] % (Auto) Eos % (Auto) Lymph # (Auto) [place] # (Auto) Eos # (Auto) Baso # (Auto) Seg Neutrophils % Seg Neuts % (Manual) Lymphocytes % (Manual) Seg Neutrophils # Seg Neutrophils # Man Lymphocytes # (Manual) D-Dimer ABG pH POC ABG pCO2 POC ABG pO2 ABG pO2 ABG HCO3 ABG O2 Saturation ABG Base Excess ABG Oxyhemoglobin ABG Sodium ABG Chloride ABG Glucose Oxyhemoglobin Carboxyhemoglobin Sodium Potassium Chloride 88.6 L Carbon Dioxide 43 H* BUN Creatinine 0.2 L Glucose 180 H POC Glucose 120 H 153 H Hemoglobin A1c Magnesium Ferritin AST ALT Alkaline Phosphatase Lactate Dehydrogenase C-Reactive Protein Total Protein Albumin Arterial Blood Glucose Coronavirus (PCR) 07/25/21 07/25/21 07/26/21 16:03 20:18 09:56 WBC MCV MCH MCHC RDW Lymph % (Auto) [place] % (Auto) Eos % (Auto) Lymph # (Auto) [place] # (Auto) Eos # (Auto) Baso # (Auto) Seg Neutrophils % Seg Neuts % (Manual) Lymphocytes % (Manual) Seg Neutrophils # Seg Neutrophils # Man Lymphocytes # (Manual) D-Dimer ABG pH POC ABG pCO2 POC ABG pO2 ABG pO2 ABG HCO3 ABG O2 Saturation ABG Base Excess ABG Oxyhemoglobin ABG Sodium ABG Chloride ABG Glucose Oxyhemoglobin Carboxyhemoglobin Sodium Potassium Chloride 91.3 L Carbon Dioxide 45 H* BUN Creatinine < 0.2 L Glucose 128 H POC Glucose 143 H 133 H Hemoglobin A1c Magnesium Ferritin AST ALT Alkaline Phosphatase Lactate Dehydrogenase C-Reactive Protein Total Protein Albumin 3.2 L Arterial Blood Glucose Coronavirus (PCR) 07/26/21 07/26/21 07/27/21 17:56 21:24 07:10 WBC MCV MCH MCHC RDW Lymph % (Auto) [place] % (Auto) Eos % (Auto) Lymph # (Auto) [place] # (Auto) Eos # (Auto) Baso # (Auto) Seg Neutrophils % Seg Neuts % (Manual) Lymphocytes % (Manual) Seg Neutrophils # Seg Neutrophils # Man Lymphocytes # (Manual) D-Dimer ABG pH POC ABG pCO2 POC ABG pO2 ABG pO2 ABG HCO3 ABG O2 Saturation ABG Base Excess ABG Oxyhemoglobin ABG Sodium ABG Chloride ABG Glucose Oxyhemoglobin Carboxyhemoglobin Sodium Potassium Chloride Carbon Dioxide BUN Creatinine Glucose POC Glucose 170 H 122 H 119 H Hemoglobin A1c Magnesium Ferritin AST ALT Alkaline Phosphatase Lactate Dehydrogenase C-Reactive Protein Total Protein Albumin Arterial Blood Glucose Coronavirus (PCR) 07/27/21 07/27/21 07/28/21 11:44 21:31 07:30 WBC MCV MCH MCHC RDW Lymph % (Auto) [place] % (Auto) Eos % (Auto) Lymph # (Auto) [place] # (Auto) Eos # (Auto) Baso # (Auto) Seg Neutrophils % Seg Neuts % (Manual) Lymphocytes % (Manual) Seg Neutrophils # Seg Neutrophils # Man Lymphocytes # (Manual) D-Dimer ABG pH POC ABG pCO2 POC ABG pO2 ABG pO2 ABG HCO3 ABG O2 Saturation ABG Base Excess ABG Oxyhemoglobin ABG Sodium ABG Chloride ABG Glucose Oxyhemoglobin Carboxyhemoglobin Sodium Potassium 3.4 L D Chloride 91.4 L Carbon Dioxide 39 H BUN Creatinine < 0.2 L Glucose 140 H POC Glucose 176 H 162 H Hemoglobin A1c Magnesium Ferritin AST ALT Alkaline Phosphatase Lactate Dehydrogenase C-Reactive Protein Total Protein Albumin Arterial Blood Glucose Coronavirus (PCR) 07/28/21 07/28/21 07/28/21 08:43 12:25 16:40 WBC MCV MCH MCHC RDW Lymph % (Auto) [place] % (Auto) Eos % (Auto) Lymph # (Auto) [place] # (Auto) Eos # (Auto) Baso # (Auto) Seg Neutrophils % Seg Neuts % (Manual) Lymphocytes % (Manual) Seg Neutrophils # Seg Neutrophils # Man Lymphocytes # (Manual) D-Dimer ABG pH POC ABG pCO2 POC ABG pO2 ABG pO2 ABG HCO3 ABG O2 Saturation ABG Base Excess ABG Oxyhemoglobin ABG Sodium ABG Chloride ABG Glucose Oxyhemoglobin Carboxyhemoglobin Sodium Potassium Chloride Carbon Dioxide BUN Creatinine Glucose POC Glucose 122 H 162 H 234 H Hemoglobin A1c Magnesium Ferritin AST ALT Alkaline Phosphatase Lactate Dehydrogenase C-Reactive Protein Total Protein Albumin Arterial Blood Glucose Coronavirus (PCR) 07/28/21 07/29/21 07/29/21 21:27 04:40 09:51 WBC MCV MCH MCHC RDW Lymph % (Auto) [place] % (Auto) Eos % (Auto) Lymph # (Auto) [place] # (Auto) Eos # (Auto) Baso # (Auto) Seg Neutrophils % Seg Neuts % (Manual) Lymphocytes % (Manual) Seg Neutrophils # Seg Neutrophils # Man Lymphocytes # (Manual) D-Dimer ABG pH POC ABG pCO2 POC ABG pO2 ABG pO2 ABG HCO3 ABG O2 Saturation ABG Base Excess ABG Oxyhemoglobin ABG Sodium ABG Chloride ABG Glucose Oxyhemoglobin Carboxyhemoglobin Sodium Potassium 3.4 L Chloride 92.3 L Carbon Dioxide 40 H BUN Creatinine < 0.2 L Glucose 125 H POC Glucose 155 H 112 H Hemoglobin A1c Magnesium Ferritin AST ALT Alkaline Phosphatase Lactate Dehydrogenase C-Reactive Protein Total Protein Albumin Arterial Blood Glucose Coronavirus (PCR) 07/29/21 07/29/21 07/29/21 12:03 16:39 21:28 WBC MCV MCH MCHC RDW Lymph % (Auto) [place] % (Auto) Eos % (Auto) Lymph # (Auto) [place] # (Auto) Eos # (Auto) Baso # (Auto) Seg Neutrophils % Seg Neuts % (Manual) Lymphocytes % (Manual) Seg Neutrophils # Seg Neutrophils # Man Lymphocytes # (Manual) D-Dimer ABG pH POC ABG pCO2 POC ABG pO2 ABG pO2 ABG HCO3 ABG O2 Saturation ABG Base Excess ABG Oxyhemoglobin ABG Sodium ABG Chloride ABG Glucose Oxyhemoglobin Carboxyhemoglobin Sodium Potassium Chloride Carbon Dioxide BUN Creatinine Glucose POC Glucose 188 H 141 H 130 H Hemoglobin A1c Magnesium Ferritin AST ALT Alkaline Phosphatase Lactate Dehydrogenase C-Reactive Protein Total Protein Albumin Arterial Blood Glucose Coronavirus (PCR) 07/30/21 07/30/21 07/30/21 08:37 11:56 22:25 WBC MCV MCH MCHC RDW Lymph % (Auto) [place] % (Auto) Eos % (Auto) Lymph # (Auto) [place] # (Auto) Eos # (Auto) Baso # (Auto) Seg Neutrophils % Seg Neuts % (Manual) Lymphocytes % (Manual) Seg Neutrophils # Seg Neutrophils # Man Lymphocytes # (Manual) D-Dimer ABG pH POC ABG pCO2 POC ABG pO2 ABG pO2 ABG HCO3 ABG O2 Saturation ABG Base Excess ABG Oxyhemoglobin ABG Sodium ABG Chloride ABG Glucose Oxyhemoglobin Carboxyhemoglobin Sodium Potassium Chloride Carbon Dioxide BUN Creatinine Glucose POC Glucose 133 H 156 H 118 H Hemoglobin A1c Magnesium Ferritin AST ALT Alkaline Phosphatase Lactate Dehydrogenase C-Reactive Protein Total Protein Albumin Arterial Blood Glucose Coronavirus (PCR) 07/31/21 07/31/21 07/31/21 06:43 11:55 16:39 WBC MCV MCH MCHC RDW Lymph % (Auto) [place] % (Auto) Eos % (Auto) Lymph # (Auto) [place] # (Auto) Eos # (Auto) Baso # (Auto) Seg Neutrophils % Seg Neuts % (Manual) Lymphocytes % (Manual) Seg Neutrophils # Seg Neutrophils # Man Lymphocytes # (Manual) D-Dimer ABG pH POC ABG pCO2 POC ABG pO2 ABG pO2 ABG HCO3 ABG O2 Saturation ABG Base Excess ABG Oxyhemoglobin ABG Sodium ABG Chloride ABG Glucose Oxyhemoglobin Carboxyhemoglobin Sodium Potassium Chloride Carbon Dioxide BUN Creatinine Glucose POC Glucose 115 H 114 H 185 H Hemoglobin A1c Magnesium Ferritin AST ALT Alkaline Phosphatase Lactate Dehydrogenase C-Reactive Protein Total Protein Albumin Arterial Blood Glucose Coronavirus (PCR) 07/31/21 08/01/21 08/01/21 23:22 11:35 15:34 WBC MCV MCH MCHC RDW Lymph % (Auto) [place] % (Auto) Eos % (Auto) Lymph # (Auto) [place] # (Auto) Eos # (Auto) Baso # (Auto) Seg Neutrophils % Seg Neuts % (Manual) Lymphocytes % (Manual) Seg Neutrophils # Seg Neutrophils # Man Lymphocytes # (Manual) D-Dimer ABG pH POC ABG pCO2 POC ABG pO2 ABG pO2 ABG HCO3 ABG O2 Saturation ABG Base Excess ABG Oxyhemoglobin ABG Sodium ABG Chloride ABG Glucose Oxyhemoglobin Carboxyhemoglobin Sodium Potassium Chloride Carbon Dioxide BUN Creatinine Glucose POC Glucose 213 H 122 H 142 H Hemoglobin A1c Magnesium Ferritin AST ALT Alkaline Phosphatase Lactate Dehydrogenase C-Reactive Protein Total Protein Albumin Arterial Blood Glucose Coronavirus (PCR) 08/01/21 08/02/21 08/02/21 22:15 07:41 11:58 WBC MCV MCH MCHC RDW Lymph % (Auto) [place] % (Auto) Eos % (Auto) Lymph # (Auto) [place] # (Auto) Eos # (Auto) Baso # (Auto) Seg Neutrophils % Seg Neuts % (Manual) Lymphocytes % (Manual) Seg Neutrophils # Seg Neutrophils # Man Lymphocytes # (Manual) D-Dimer ABG pH POC ABG pCO2 POC ABG pO2 ABG pO2 ABG HCO3 ABG O2 Saturation ABG Base Excess ABG Oxyhemoglobin ABG Sodium ABG Chloride ABG Glucose Oxyhemoglobin Carboxyhemoglobin Sodium Potassium Chloride Carbon Dioxide BUN Creatinine Glucose POC Glucose 121 H 109 H 136 H Hemoglobin A1c Magnesium Ferritin AST ALT Alkaline Phosphatase Lactate Dehydrogenase C-Reactive Protein Total Protein Albumin Arterial Blood Glucose Coronavirus (PCR) 08/02/21 08/03/21 08/03/21 21:19 07:47 11:18 WBC MCV MCH MCHC RDW Lymph % (Auto) [place] % (Auto) Eos % (Auto) Lymph # (Auto) [place] # (Auto) Eos # (Auto) Baso # (Auto) Seg Neutrophils % Seg Neuts % (Manual) Lymphocytes % (Manual) Seg Neutrophils # Seg Neutrophils # Man Lymphocytes # (Manual) D-Dimer ABG pH POC ABG pCO2 POC ABG pO2 ABG pO2 ABG HCO3 ABG O2 Saturation ABG Base Excess ABG Oxyhemoglobin ABG Sodium ABG Chloride ABG Glucose Oxyhemoglobin Carboxyhemoglobin Sodium Potassium Chloride Carbon Dioxide BUN Creatinine Glucose POC Glucose 159 H 111 H 202 H Hemoglobin A1c Magnesium Ferritin AST ALT Alkaline Phosphatase Lactate Dehydrogenase C-Reactive Protein Total Protein Albumin Arterial Blood Glucose Coronavirus (PCR) 08/03/21 08/03/21 08/04/21 16:47 21:26 07:57 WBC MCV MCH MCHC RDW Lymph % (Auto) [place] % (Auto) Eos % (Auto) Lymph # (Auto) [place] # (Auto) Eos # (Auto) Baso # (Auto) Seg Neutrophils % Seg Neuts % (Manual) Lymphocytes % (Manual) Seg Neutrophils # Seg Neutrophils # Man Lymphocytes # (Manual) D-Dimer ABG pH POC ABG pCO2 POC ABG pO2 ABG pO2 ABG HCO3 ABG O2 Saturation ABG Base Excess ABG Oxyhemoglobin ABG Sodium ABG Chloride ABG Glucose Oxyhemoglobin Carboxyhemoglobin Sodium Potassium Chloride Carbon Dioxide BUN Creatinine Glucose POC Glucose 133 H 148 H 129 H Hemoglobin A1c Magnesium Ferritin AST ALT Alkaline Phosphatase Lactate Dehydrogenase C-Reactive Protein Total Protein Albumin Arterial Blood Glucose Coronavirus (PCR) 08/04/21 08/04/21 08/04/21 08:05 11:42 16:53 WBC MCV MCH MCHC RDW Lymph % (Auto) [place] % (Auto) Eos % (Auto) Lymph # (Auto) [place] # (Auto) Eos # (Auto) Baso # (Auto) Seg Neutrophils % Seg Neuts % (Manual) Lymphocytes % (Manual) Seg Neutrophils # Seg Neutrophils # Man Lymphocytes # (Manual) D-Dimer ABG pH POC ABG pCO2 POC ABG pO2 ABG pO2 ABG HCO3 ABG O2 Saturation ABG Base Excess ABG Oxyhemoglobin ABG Sodium ABG Chloride ABG Glucose Oxyhemoglobin Carboxyhemoglobin Sodium Potassium Chloride Carbon Dioxide BUN Creatinine Glucose POC Glucose 145 H 187 H 112 H Hemoglobin A1c Magnesium Ferritin AST ALT Alkaline Phosphatase Lactate Dehydrogenase C-Reactive Protein Total Protein Albumin Arterial Blood Glucose Coronavirus (PCR) 08/04/21 08/05/21 08/05/21 21:27 07:35 11:19 WBC MCV MCH MCHC RDW Lymph % (Auto) [place] % (Auto) Eos % (Auto) Lymph # (Auto) [place] # (Auto) Eos # (Auto) Baso # (Auto) Seg Neutrophils % Seg Neuts % (Manual) Lymphocytes % (Manual) Seg Neutrophils # Seg Neutrophils # Man Lymphocytes # (Manual) D-Dimer ABG pH POC ABG pCO2 POC ABG pO2 ABG pO2 ABG HCO3 ABG O2 Saturation ABG Base Excess ABG Oxyhemoglobin ABG Sodium ABG Chloride ABG Glucose Oxyhemoglobin Carboxyhemoglobin Sodium Potassium Chloride Carbon Dioxide BUN Creatinine Glucose POC Glucose 189 H 146 H 244 H Hemoglobin A1c Magnesium Ferritin AST ALT Alkaline Phosphatase Lactate Dehydrogenase C-Reactive Protein Total Protein Albumin Arterial Blood Glucose Coronavirus (PCR) 08/05/21 08/06/21 08/06/21 22:16 07:29 11:16 WBC MCV MCH MCHC RDW Lymph % (Auto) [place] % (Auto) Eos % (Auto) Lymph # (Auto) [place] # (Auto) Eos # (Auto) Baso # (Auto) Seg Neutrophils % Seg Neuts % (Manual) Lymphocytes % (Manual) Seg Neutrophils # Seg Neutrophils # Man Lymphocytes # (Manual) D-Dimer ABG pH POC ABG pCO2 POC ABG pO2 ABG pO2 ABG HCO3 ABG O2 Saturation ABG Base Excess ABG Oxyhemoglobin ABG Sodium ABG Chloride ABG Glucose Oxyhemoglobin Carboxyhemoglobin Sodium Potassium Chloride Carbon Dioxide BUN Creatinine Glucose POC Glucose 122 H 128 H 228 H Hemoglobin A1c Magnesium Ferritin AST ALT Alkaline Phosphatase Lactate Dehydrogenase C-Reactive Protein Total Protein Albumin Arterial Blood Glucose Coronavirus (PCR) 08/06/21 08/07/21 08/07/21 21:13 07:17 11:54 WBC MCV MCH MCHC RDW Lymph % (Auto) [place] % (Auto) Eos % (Auto) Lymph # (Auto) [place] # (Auto) Eos # (Auto) Baso # (Auto) Seg Neutrophils % Seg Neuts % (Manual) Lymphocytes % (Manual) Seg Neutrophils # Seg Neutrophils # Man Lymphocytes # (Manual) D-Dimer ABG pH POC ABG pCO2 POC ABG pO2 ABG pO2 ABG HCO3 ABG O2 Saturation ABG Base Excess ABG Oxyhemoglobin ABG Sodium ABG Chloride ABG Glucose Oxyhemoglobin Carboxyhemoglobin Sodium Potassium Chloride Carbon Dioxide BUN Creatinine Glucose POC Glucose 198 H 134 H 107 H Hemoglobin A1c Magnesium Ferritin AST ALT Alkaline Phosphatase Lactate Dehydrogenase C-Reactive Protein Total Protein Albumin Arterial Blood Glucose Coronavirus (PCR) 08/07/21 08/07/21 08/08/21 16:26 21:15 04:51 WBC MCV MCH MCHC RDW Lymph % (Auto) [place] % (Auto) Eos % (Auto) Lymph # (Auto) [place] # (Auto) Eos # (Auto) Baso # (Auto) Seg Neutrophils % Seg Neuts % (Manual) Lymphocytes % (Manual) Seg Neutrophils # Seg Neutrophils # Man Lymphocytes # (Manual) D-Dimer ABG pH POC ABG pCO2 POC ABG pO2 ABG pO2 ABG HCO3 ABG O2 Saturation ABG Base Excess ABG Oxyhemoglobin ABG Sodium ABG Chloride ABG Glucose Oxyhemoglobin Carboxyhemoglobin Sodium Potassium Chloride 92.9 L Carbon Dioxide 39 H BUN Creatinine < 0.2 L Glucose 105 H POC Glucose 144 H 228 H Hemoglobin A1c Magnesium Ferritin AST ALT Alkaline Phosphatase Lactate Dehydrogenase C-Reactive Protein Total Protein Albumin Arterial Blood Glucose Coronavirus (PCR) 08/08/21 08/08/21 08/08/21 11:40 17:09 21:22 WBC MCV MCH MCHC RDW Lymph % (Auto) [place] % (Auto) Eos % (Auto) Lymph # (Auto) [place] # (Auto) Eos # (Auto) Baso # (Auto) Seg Neutrophils % Seg Neuts % (Manual) Lymphocytes % (Manual) Seg Neutrophils # Seg Neutrophils # Man Lymphocytes # (Manual) D-Dimer ABG pH POC ABG pCO2 POC ABG pO2 ABG pO2 ABG HCO3 ABG O2 Saturation ABG Base Excess ABG Oxyhemoglobin ABG Sodium ABG Chloride ABG Glucose Oxyhemoglobin Carboxyhemoglobin Sodium Potassium Chloride Carbon Dioxide BUN Creatinine Glucose POC Glucose 137 H 137 H 152 H Hemoglobin A1c Magnesium Ferritin AST ALT Alkaline Phosphatase Lactate Dehydrogenase C-Reactive Protein Total Protein Albumin Arterial Blood Glucose Coronavirus (PCR) 08/09/21 08/09/21 08/09/21 07:42 12:26 16:41 WBC MCV MCH MCHC RDW Lymph % (Auto) [place] % (Auto) Eos % (Auto) Lymph # (Auto) [place] # (Auto) Eos # (Auto) Baso # (Auto) Seg Neutrophils % Seg Neuts % (Manual) Lymphocytes % (Manual) Seg Neutrophils # Seg Neutrophils # Man Lymphocytes # (Manual) D-Dimer ABG pH POC ABG pCO2 POC ABG pO2 ABG pO2 ABG HCO3 ABG O2 Saturation ABG Base Excess ABG Oxyhemoglobin ABG Sodium ABG Chloride ABG Glucose Oxyhemoglobin Carboxyhemoglobin Sodium Potassium Chloride Carbon Dioxide BUN Creatinine Glucose POC Glucose 120 H 132 H 116 H Hemoglobin A1c Magnesium Ferritin AST ALT Alkaline Phosphatase Lactate Dehydrogenase C-Reactive Protein Total Protein Albumin Arterial Blood Glucose Coronavirus (PCR) 08/09/21 08/10/21 08/10/21 21:13 07:41 11:33 WBC MCV MCH MCHC RDW Lymph % (Auto) [place] % (Auto) Eos % (Auto) Lymph # (Auto) [place] # (Auto) Eos # (Auto) Baso # (Auto) Seg Neutrophils % Seg Neuts % (Manual) Lymphocytes % (Manual) Seg Neutrophils # Seg Neutrophils # Man Lymphocytes # (Manual) D-Dimer ABG pH POC ABG pCO2 POC ABG pO2 ABG pO2 ABG HCO3 ABG O2 Saturation ABG Base Excess ABG Oxyhemoglobin ABG Sodium ABG Chloride ABG Glucose Oxyhemoglobin Carboxyhemoglobin Sodium Potassium Chloride Carbon Dioxide BUN Creatinine Glucose POC Glucose 205 H 125 H 125 H Hemoglobin A1c Magnesium Ferritin AST ALT Alkaline Phosphatase Lactate Dehydrogenase C-Reactive Protein Total Protein Albumin Arterial Blood Glucose Coronavirus (PCR) 08/10/21 08/10/21 08/11/21 15:21 21:07 07:22 WBC MCV MCH MCHC RDW Lymph % (Auto) [place] % (Auto) Eos % (Auto) Lymph # (Auto) [place] # (Auto) Eos # (Auto) Baso # (Auto) Seg Neutrophils % Seg Neuts % (Manual) Lymphocytes % (Manual) Seg Neutrophils # Seg Neutrophils # Man Lymphocytes # (Manual) D-Dimer ABG pH POC ABG pCO2 POC ABG pO2 ABG pO2 ABG HCO3 ABG O2 Saturation ABG Base Excess ABG Oxyhemoglobin ABG Sodium ABG Chloride ABG Glucose Oxyhemoglobin Carboxyhemoglobin Sodium Potassium Chloride Carbon Dioxide BUN Creatinine Glucose POC Glucose 188 H 177 H 123 H Hemoglobin A1c Magnesium Ferritin AST ALT Alkaline Phosphatase Lactate Dehydrogenase C-Reactive Protein Total Protein Albumin Arterial Blood Glucose Coronavirus (PCR) 08/11/21 08/11/21 08/11/21 11:42 15:43 21:34 WBC MCV MCH MCHC RDW Lymph % (Auto) [place] % (Auto) Eos % (Auto) Lymph # (Auto) [place] # (Auto) Eos # (Auto) Baso # (Auto) Seg Neutrophils % Seg Neuts % (Manual) Lymphocytes % (Manual) Seg Neutrophils # Seg Neutrophils # Man Lymphocytes # (Manual) D-Dimer ABG pH POC ABG pCO2 POC ABG pO2 ABG pO2 ABG HCO3 ABG O2 Saturation ABG Base Excess ABG Oxyhemoglobin ABG Sodium ABG Chloride ABG Glucose Oxyhemoglobin Carboxyhemoglobin Sodium Potassium Chloride Carbon Dioxide BUN Creatinine Glucose POC Glucose 182 H 182 H 112 H Hemoglobin A1c Magnesium Ferritin AST ALT Alkaline Phosphatase Lactate Dehydrogenase C-Reactive Protein Total Protein Albumin Arterial Blood Glucose Coronavirus (PCR) 08/12/21 08/12/21 08/12/21 07:49 12:03 17:06 WBC MCV MCH MCHC RDW Lymph % (Auto) [place] % (Auto) Eos % (Auto) Lymph # (Auto) [place] # (Auto) Eos # (Auto) Baso # (Auto) Seg Neutrophils % Seg Neuts % (Manual) Lymphocytes % (Manual) Seg Neutrophils # Seg Neutrophils # Man Lymphocytes # (Manual) D-Dimer ABG pH POC ABG pCO2 POC ABG pO2 ABG pO2 ABG HCO3 ABG O2 Saturation ABG Base Excess ABG Oxyhemoglobin ABG Sodium ABG Chloride ABG Glucose Oxyhemoglobin Carboxyhemoglobin Sodium Potassium Chloride Carbon Dioxide BUN Creatinine Glucose POC Glucose 151 H 154 H 106 H Hemoglobin A1c Magnesium Ferritin AST ALT Alkaline Phosphatase Lactate Dehydrogenase C-Reactive Protein Total Protein Albumin Arterial Blood Glucose Coronavirus (PCR) 08/12/21 08/13/21 08/13/21 21:50 07:31 11:27 WBC MCV MCH MCHC RDW Lymph % (Auto) [place] % (Auto) Eos % (Auto) Lymph # (Auto) [place] # (Auto) Eos # (Auto) Baso # (Auto) Seg Neutrophils % Seg Neuts % (Manual) Lymphocytes % (Manual) Seg Neutrophils # Seg Neutrophils # Man Lymphocytes # (Manual) D-Dimer ABG pH POC ABG pCO2 POC ABG pO2 ABG pO2 ABG HCO3 ABG O2 Saturation ABG Base Excess ABG Oxyhemoglobin ABG Sodium ABG Chloride ABG Glucose Oxyhemoglobin Carboxyhemoglobin Sodium Potassium Chloride Carbon Dioxide BUN Creatinine Glucose POC Glucose 160 H 118 H 177 H Hemoglobin A1c Magnesium Ferritin AST ALT Alkaline Phosphatase Lactate Dehydrogenase C-Reactive Protein Total Protein Albumin Arterial Blood Glucose Coronavirus (PCR) 08/13/21 08/13/21 08/14/21 16:21 20:59 07:16 WBC MCV MCH MCHC RDW Lymph % (Auto) [place] % (Auto) Eos % (Auto) Lymph # (Auto) [place] # (Auto) Eos # (Auto) Baso # (Auto) Seg Neutrophils % Seg Neuts % (Manual) Lymphocytes % (Manual) Seg Neutrophils # Seg Neutrophils # Man Lymphocytes # (Manual) D-Dimer ABG pH POC ABG pCO2 POC ABG pO2 ABG pO2 ABG HCO3 ABG O2 Saturation ABG Base Excess ABG Oxyhemoglobin ABG Sodium ABG Chloride ABG Glucose Oxyhemoglobin Carboxyhemoglobin Sodium Potassium Chloride Carbon Dioxide BUN Creatinine Glucose POC Glucose 116 H 140 H 109 H Hemoglobin A1c Magnesium Ferritin AST ALT Alkaline Phosphatase Lactate Dehydrogenase C-Reactive Protein Total Protein Albumin Arterial Blood Glucose Coronavirus (PCR) 08/14/21 08/14/21 08/14/21 11:13 16:30 21:11 WBC MCV MCH MCHC RDW Lymph % (Auto) [place] % (Auto) Eos % (Auto) Lymph # (Auto) [place] # (Auto) Eos # (Auto) Baso # (Auto) Seg Neutrophils % Seg Neuts % (Manual) Lymphocytes % (Manual) Seg Neutrophils # Seg Neutrophils # Man Lymphocytes # (Manual) D-Dimer ABG pH POC ABG pCO2 POC ABG pO2 ABG pO2 ABG HCO3 ABG O2 Saturation ABG Base Excess ABG Oxyhemoglobin ABG Sodium ABG Chloride ABG Glucose Oxyhemoglobin Carboxyhemoglobin Sodium Potassium Chloride Carbon Dioxide BUN Creatinine Glucose POC Glucose 176 H 117 H 222 H Hemoglobin A1c Magnesium Ferritin AST ALT Alkaline Phosphatase Lactate Dehydrogenase C-Reactive Protein Total Protein Albumin Arterial Blood Glucose Coronavirus (PCR) 08/15/21 08/15/21 08/15/21 07:10 11:11 16:25 WBC MCV MCH MCHC RDW Lymph % (Auto) [place] % (Auto) Eos % (Auto) Lymph # (Auto) [place] # (Auto) Eos # (Auto) Baso # (Auto) Seg Neutrophils % Seg Neuts % (Manual) Lymphocytes % (Manual) Seg Neutrophils # Seg Neutrophils # Man Lymphocytes # (Manual) D-Dimer ABG pH POC ABG pCO2 POC ABG pO2 ABG pO2 ABG HCO3 ABG O2 Saturation ABG Base Excess ABG Oxyhemoglobin ABG Sodium ABG Chloride ABG Glucose Oxyhemoglobin Carboxyhemoglobin Sodium Potassium Chloride Carbon Dioxide BUN Creatinine Glucose POC Glucose 165 H 225 H 157 H Hemoglobin A1c Magnesium Ferritin AST ALT Alkaline Phosphatase Lactate Dehydrogenase C-Reactive Protein Total Protein Albumin Arterial Blood Glucose Coronavirus (PCR) 08/16/21 08/16/21 08/16/21 07:29 11:14 21:03 WBC MCV MCH MCHC RDW Lymph % (Auto) [place] % (Auto) Eos % (Auto) Lymph # (Auto) [place] # (Auto) Eos # (Auto) Baso # (Auto) Seg Neutrophils % Seg Neuts % (Manual) Lymphocytes % (Manual) Seg Neutrophils # Seg Neutrophils # Man Lymphocytes # (Manual) D-Dimer ABG pH POC ABG pCO2 POC ABG pO2 ABG pO2 ABG HCO3 ABG O2 Saturation ABG Base Excess ABG Oxyhemoglobin ABG Sodium ABG Chloride ABG Glucose Oxyhemoglobin Carboxyhemoglobin Sodium Potassium Chloride Carbon Dioxide BUN Creatinine Glucose POC Glucose 177 H 254 H 291 H Hemoglobin A1c Magnesium Ferritin AST ALT Alkaline Phosphatase Lactate Dehydrogenase C-Reactive Protein Total Protein Albumin Arterial Blood Glucose Coronavirus (PCR) 08/17/21 08/17/21 08/17/21 07:50 12:18 17:35 WBC MCV MCH MCHC RDW Lymph % (Auto) [place] % (Auto) Eos % (Auto) Lymph # (Auto) [place] # (Auto) Eos # (Auto) Baso # (Auto) Seg Neutrophils % Seg Neuts % (Manual) Lymphocytes % (Manual) Seg Neutrophils # Seg Neutrophils # Man Lymphocytes # (Manual) D-Dimer ABG pH POC ABG pCO2 POC ABG pO2 ABG pO2 ABG HCO3 ABG O2 Saturation ABG Base Excess ABG Oxyhemoglobin ABG Sodium ABG Chloride ABG Glucose Oxyhemoglobin Carboxyhemoglobin Sodium Potassium Chloride Carbon Dioxide BUN Creatinine Glucose POC Glucose 171 H 236 H 273 H Hemoglobin A1c Magnesium Ferritin AST ALT Alkaline Phosphatase Lactate Dehydrogenase C-Reactive Protein Total Protein Albumin Arterial Blood Glucose Coronavirus (PCR) 08/17/21 08/18/21 08/18/21 21:36 07:27 11:29 WBC MCV MCH MCHC RDW Lymph % (Auto) [place] % (Auto) Eos % (Auto) Lymph # (Auto) [place] # (Auto) Eos # (Auto) Baso # (Auto) Seg Neutrophils % Seg Neuts % (Manual) Lymphocytes % (Manual) Seg Neutrophils # Seg Neutrophils # Man Lymphocytes # (Manual) D-Dimer ABG pH POC ABG pCO2 POC ABG pO2 ABG pO2 ABG HCO3 ABG O2 Saturation ABG Base Excess ABG Oxyhemoglobin ABG Sodium ABG Chloride ABG Glucose Oxyhemoglobin Carboxyhemoglobin Sodium Potassium Chloride Carbon Dioxide BUN Creatinine Glucose POC Glucose 181 H 179 H 210 H Hemoglobin A1c Magnesium Ferritin AST ALT Alkaline Phosphatase Lactate Dehydrogenase C-Reactive Protein Total Protein Albumin Arterial Blood Glucose Coronavirus (PCR) 08/18/21 08/18/21 08/19/21 17:03 21:14 07:17 WBC MCV MCH MCHC RDW Lymph % (Auto) [place] % (Auto) Eos % (Auto) Lymph # (Auto) [place] # (Auto) Eos # (Auto) Baso # (Auto) Seg Neutrophils % Seg Neuts % (Manual) Lymphocytes % (Manual) Seg Neutrophils # Seg Neutrophils # Man Lymphocytes # (Manual) D-Dimer ABG pH POC ABG pCO2 POC ABG pO2 ABG pO2 ABG HCO3 ABG O2 Saturation ABG Base Excess ABG Oxyhemoglobin ABG Sodium ABG Chloride ABG Glucose Oxyhemoglobin Carboxyhemoglobin Sodium Potassium Chloride Carbon Dioxide BUN Creatinine Glucose POC Glucose 255 H 212 H 193 H Hemoglobin A1c Magnesium Ferritin AST ALT Alkaline Phosphatase Lactate Dehydrogenase C-Reactive Protein Total Protein Albumin Arterial Blood Glucose Coronavirus (PCR) 08/19/21 08/19/21 08/19/21 11:23 16:20 21:39 WBC MCV MCH MCHC RDW Lymph % (Auto) [place] % (Auto) Eos % (Auto) Lymph # (Auto) [place] # (Auto) Eos # (Auto) Baso # (Auto) Seg Neutrophils % Seg Neuts % (Manual) Lymphocytes % (Manual) Seg Neutrophils # Seg Neutrophils # Man Lymphocytes # (Manual) D-Dimer ABG pH POC ABG pCO2 POC ABG pO2 ABG pO2 ABG HCO3 ABG O2 Saturation ABG Base Excess ABG Oxyhemoglobin ABG Sodium ABG Chloride ABG Glucose Oxyhemoglobin Carboxyhemoglobin Sodium Potassium Chloride Carbon Dioxide BUN Creatinine Glucose POC Glucose 256 H 173 H 223 H Hemoglobin A1c Magnesium Ferritin AST ALT Alkaline Phosphatase Lactate Dehydrogenase C-Reactive Protein Total Protein Albumin Arterial Blood Glucose Coronavirus (PCR) 08/20/21 08/20/21 08/20/21 07:52 11:18 15:32 WBC MCV MCH MCHC RDW Lymph % (Auto) [place] % (Auto) Eos % (Auto) Lymph # (Auto) [place] # (Auto) Eos # (Auto) Baso # (Auto) Seg Neutrophils % Seg Neuts % (Manual) Lymphocytes % (Manual) Seg Neutrophils # Seg Neutrophils # Man Lymphocytes # (Manual) D-Dimer ABG pH POC ABG pCO2 POC ABG pO2 ABG pO2 ABG HCO3 ABG O2 Saturation ABG Base Excess ABG Oxyhemoglobin ABG Sodium ABG Chloride ABG Glucose Oxyhemoglobin Carboxyhemoglobin Sodium Potassium Chloride Carbon Dioxide BUN Creatinine Glucose POC Glucose 147 H 280 H 243 H Hemoglobin A1c Magnesium Ferritin AST ALT Alkaline Phosphatase Lactate Dehydrogenase C-Reactive Protein Total Protein Albumin Arterial Blood Glucose Coronavirus (PCR) 08/20/21 08/21/21 08/21/21 22:15 08:26 11:58 WBC MCV MCH MCHC RDW Lymph % (Auto) [place] % (Auto) Eos % (Auto) Lymph # (Auto) [place] # (Auto) Eos # (Auto) Baso # (Auto) Seg Neutrophils % Seg Neuts % (Manual) Lymphocytes % (Manual) Seg Neutrophils # Seg Neutrophils # Man Lymphocytes # (Manual) D-Dimer ABG pH POC ABG pCO2 POC ABG pO2 ABG pO2 ABG HCO3 ABG O2 Saturation ABG Base Excess ABG Oxyhemoglobin ABG Sodium ABG Chloride ABG Glucose Oxyhemoglobin Carboxyhemoglobin Sodium Potassium Chloride Carbon Dioxide BUN Creatinine Glucose POC Glucose 215 H 165 H 241 H Hemoglobin A1c Magnesium Ferritin AST ALT Alkaline Phosphatase Lactate Dehydrogenase C-Reactive Protein Total Protein Albumin Arterial Blood Glucose Coronavirus (PCR) 08/21/21 08/21/21 08/22/21 16:56 22:11 07:20 WBC MCV MCH MCHC RDW Lymph % (Auto) [place] % (Auto) Eos % (Auto) Lymph # (Auto) [place] # (Auto) Eos # (Auto) Baso # (Auto) Seg Neutrophils % Seg Neuts % (Manual) Lymphocytes % (Manual) Seg Neutrophils # Seg Neutrophils # Man Lymphocytes # (Manual) D-Dimer ABG pH POC ABG pCO2 POC ABG pO2 ABG pO2 ABG HCO3 ABG O2 Saturation ABG Base Excess ABG Oxyhemoglobin ABG Sodium ABG Chloride ABG Glucose Oxyhemoglobin Carboxyhemoglobin Sodium Potassium Chloride Carbon Dioxide BUN Creatinine Glucose POC Glucose 276 H 207 H 184 H Hemoglobin A1c Magnesium Ferritin AST ALT Alkaline Phosphatase Lactate Dehydrogenase C-Reactive Protein Total Protein Albumin Arterial Blood Glucose Coronavirus (PCR) 08/22/21 08/22/21 08/22/21 11:32 16:11 20:36 WBC MCV MCH MCHC RDW Lymph % (Auto) [place] % (Auto) Eos % (Auto) Lymph # (Auto) [place] # (Auto) Eos # (Auto) Baso # (Auto) Seg Neutrophils % Seg Neuts % (Manual) Lymphocytes % (Manual) Seg Neutrophils # Seg Neutrophils # Man Lymphocytes # (Manual) D-Dimer ABG pH POC ABG pCO2 POC ABG pO2 ABG pO2 ABG HCO3 ABG O2 Saturation ABG Base Excess ABG Oxyhemoglobin ABG Sodium ABG Chloride ABG Glucose Oxyhemoglobin Carboxyhemoglobin Sodium Potassium Chloride Carbon Dioxide BUN Creatinine Glucose POC Glucose 235 H 240 H 207 H Hemoglobin A1c Magnesium Ferritin AST ALT Alkaline Phosphatase Lactate Dehydrogenase C-Reactive Protein Total Protein Albumin Arterial Blood Glucose Coronavirus (PCR) 08/23/21 08/23/21 08/23/21 08:40 12:20 21:53 WBC MCV MCH MCHC RDW Lymph % (Auto) [place] % (Auto) Eos % (Auto) Lymph # (Auto) [place] # (Auto) Eos # (Auto) Baso # (Auto) Seg Neutrophils % Seg Neuts % (Manual) Lymphocytes % (Manual) Seg Neutrophils # Seg Neutrophils # Man Lymphocytes # (Manual) D-Dimer ABG pH POC ABG pCO2 POC ABG pO2 ABG pO2 ABG HCO3 ABG O2 Saturation ABG Base Excess ABG Oxyhemoglobin ABG Sodium ABG Chloride ABG Glucose Oxyhemoglobin Carboxyhemoglobin Sodium Potassium Chloride Carbon Dioxide BUN Creatinine Glucose POC Glucose 208 H 259 H 258 H Hemoglobin A1c Magnesium Ferritin AST ALT Alkaline Phosphatase Lactate Dehydrogenase C-Reactive Protein Total Protein Albumin Arterial Blood Glucose Coronavirus (PCR) 08/24/21 08/24/21 08/24/21 07:48 11:25 16:30 WBC MCV MCH MCHC RDW Lymph % (Auto) [place] % (Auto) Eos % (Auto) Lymph # (Auto) [place] # (Auto) Eos # (Auto) Baso # (Auto) Seg Neutrophils % Seg Neuts % (Manual) Lymphocytes % (Manual) Seg Neutrophils # Seg Neutrophils # Man Lymphocytes # (Manual) D-Dimer ABG pH POC ABG pCO2 POC ABG pO2 ABG pO2 ABG HCO3 ABG O2 Saturation ABG Base Excess ABG Oxyhemoglobin ABG Sodium ABG Chloride ABG Glucose Oxyhemoglobin Carboxyhemoglobin Sodium Potassium Chloride Carbon Dioxide BUN Creatinine Glucose POC Glucose 189 H 255 H 197 H Hemoglobin A1c Magnesium Ferritin AST ALT Alkaline Phosphatase Lactate Dehydrogenase C-Reactive Protein Total Protein Albumin Arterial Blood Glucose Coronavirus (PCR) 08/24/21 08/25/2121 22:12 07:23 11:12 WBC MCV MCH MCHC RDW Lymph % (Auto) [place] % (Auto) Eos % (Auto) Lymph # (Auto) [place] # (Auto) Eos # (Auto) Baso # (Auto) Seg Neutrophils % Seg Neuts % (Manual) Lymphocytes % (Manual) Seg Neutrophils # Seg Neutrophils # Man Lymphocytes # (Manual) D-Dimer ABG pH POC ABG pCO2 POC ABG pO2 ABG pO2 ABG HCO3 ABG O2 Saturation ABG Base Excess ABG Oxyhemoglobin ABG Sodium ABG Chloride ABG Glucose Oxyhemoglobin Carboxyhemoglobin Sodium Potassium Chloride Carbon Dioxide BUN Creatinine Glucose POC Glucose 202 H 167 H 227 H Hemoglobin A1c Magnesium Ferritin AST ALT Alkaline Phosphatase Lactate Dehydrogenase C-Reactive Protein Total Protein Albumin Arterial Blood Glucose Coronavirus (PCR) 08/25/21 08/25/21 08/26/21 16:00 22:18 07:37 WBC MCV MCH MCHC RDW Lymph % (Auto) [place] % (Auto) Eos % (Auto) Lymph # (Auto) [place] # (Auto) Eos # (Auto) Baso # (Auto) Seg Neutrophils % Seg Neuts % (Manual) Lymphocytes % (Manual) Seg Neutrophils # Seg Neutrophils # Man Lymphocytes # (Manual) D-Dimer ABG pH POC ABG pCO2 POC ABG pO2 ABG pO2 ABG HCO3 ABG O2 Saturation ABG Base Excess ABG Oxyhemoglobin ABG Sodium ABG Chloride ABG Glucose Oxyhemoglobin Carboxyhemoglobin Sodium Potassium Chloride Carbon Dioxide BUN Creatinine Glucose POC Glucose 299 H 250 H 238 H Hemoglobin A1c Magnesium Ferritin AST ALT Alkaline Phosphatase Lactate Dehydrogenase C-Reactive Protein Total Protein Albumin Arterial Blood Glucose Coronavirus (PCR) 08/26/21 08/26/21 08/26/21 10:33 15:28 21:29 WBC MCV MCH MCHC RDW Lymph % (Auto) [place] % (Auto) Eos % (Auto) Lymph # (Auto) [place] # (Auto) Eos # (Auto) Baso # (Auto) Seg Neutrophils % Seg Neuts % (Manual) Lymphocytes % (Manual) Seg Neutrophils # Seg Neutrophils # Man Lymphocytes # (Manual) D-Dimer ABG pH POC ABG pCO2 POC ABG pO2 ABG pO2 ABG HCO3 ABG O2 Saturation ABG Base Excess ABG Oxyhemoglobin ABG Sodium ABG Chloride ABG Glucose Oxyhemoglobin Carboxyhemoglobin Sodium Potassium Chloride Carbon Dioxide BUN Creatinine Glucose POC Glucose 285 H 204 H 254 H Hemoglobin A1c Magnesium Ferritin AST ALT Alkaline Phosphatase Lactate Dehydrogenase C-Reactive Protein Total Protein Albumin Arterial Blood Glucose Coronavirus (PCR) 08/27/21 08/27/21 08/27/21 04:59 08:50 12:28 WBC MCV MCH MCHC RDW Lymph % (Auto) [place] % (Auto) Eos % (Auto) Lymph # (Auto) [place] # (Auto) Eos # (Auto) Baso # (Auto) Seg Neutrophils % Seg Neuts % (Manual) Lymphocytes % (Manual) Seg Neutrophils # Seg Neutrophils # Man Lymphocytes # (Manual) D-Dimer ABG pH POC ABG pCO2 POC ABG pO2 ABG pO2 ABG HCO3 ABG O2 Saturation ABG Base Excess ABG Oxyhemoglobin ABG Sodium ABG Chloride ABG Glucose Oxyhemoglobin Carboxyhemoglobin Sodium Potassium Chloride 92.7 L Carbon Dioxide 46 H* BUN 18 H Creatinine < 0.2 L Glucose 216 H POC Glucose 237 H 275 H Hemoglobin A1c Magnesium Ferritin AST ALT 100 H Alkaline Phosphatase Lactate Dehydrogenase C-Reactive Protein Total Protein 6.1 L Albumin 3.5 L Arterial Blood Glucose Coronavirus (PCR) 08/27/21 08/27/21 08/28/21 17:42 21:16 07:19 WBC MCV MCH MCHC RDW Lymph % (Auto) [place] % (Auto) Eos % (Auto) Lymph # (Auto) [place] # (Auto) Eos # (Auto) Baso # (Auto) Seg Neutrophils % Seg Neuts % (Manual) Lymphocytes % (Manual) Seg Neutrophils # Seg Neutrophils # Man Lymphocytes # (Manual) D-Dimer ABG pH POC ABG pCO2 POC ABG pO2 ABG pO2 ABG HCO3 ABG O2 Saturation ABG Base Excess ABG Oxyhemoglobin ABG Sodium ABG Chloride ABG Glucose Oxyhemoglobin Carboxyhemoglobin Sodium Potassium Chloride Carbon Dioxide BUN Creatinine Glucose POC Glucose 205 H 218 H 193 H Hemoglobin A1c Magnesium Ferritin AST ALT Alkaline Phosphatase Lactate Dehydrogenase C-Reactive Protein Total Protein Albumin Arterial Blood Glucose Coronavirus (PCR)
== END 2021-08-28 13:40 | disposition home or self-care (01) | DRG 871 ==
LOC: ED 11:04 → 3A 13:39 → IMCU 04-18 13:24 → CC1 04-24 02:20 → 3A 05-07 06:34 → CC1 07-19 05:16 → IMCU 07-25 07:44
PROVIDERS: ADMIT Internal Medicine; ATTEND Internal Medicine
PROC: XW033E5 Introduction of Remdesivir Anti-infective into Peripheral Vein, Percutaneous Approach, New Technology Group 5 (ICD-10-PCS; 2021-04-17)
PROC: XW033H5 Introduction of Tocilizumab into Peripheral Vein, Percutaneous Approach, New Technology Group 5 (ICD-10-PCS; 2021-04-17)
PROC: 5A09357 Assistance with Respiratory Ventilation, Less than 24 Consecutive Hours, Continuous Positive Airway Pressure (ICD-10-PCS; 2021-04-27)
PROC: 02HV33Z Insertion of Infusion Device into Superior Vena Cava, Percutaneous Approach (ICD-10-PCS; 2021-04-28)
PROC: B548ZZA Ultrasonography of Superior Vena Cava, Guidance (ICD-10-PCS; 2021-04-28)
PROC: 4A033R1 Measurement of Arterial Saturation, Peripheral, Percutaneous Approach (ICD-10-PCS; principal; 2021-04-29)
PROC: 5A09357 Assistance with Respiratory Ventilation, Less than 24 Consecutive Hours, Continuous Positive Airway Pressure (ICD-10-PCS; 2021-05-14)
PROC: 5A09357 Assistance with Respiratory Ventilation, Less than 24 Consecutive Hours, Continuous Positive Airway Pressure (ICD-10-PCS; 2021-05-31)
PROC: 5A09357 Assistance with Respiratory Ventilation, Less than 24 Consecutive Hours, Continuous Positive Airway Pressure (ICD-10-PCS; 2021-07-01)
PROC: 5A09557 Assistance with Respiratory Ventilation, Greater than 96 Consecutive Hours, Continuous Positive Airway Pressure (ICD-10-PCS; 2021-07-19)
PROC: 5A09557 Assistance with Respiratory Ventilation, Greater than 96 Consecutive Hours, Continuous Positive Airway Pressure (ICD-10-PCS; 2021-07-30)
PROC: 5A09357 Assistance with Respiratory Ventilation, Less than 24 Consecutive Hours, Continuous Positive Airway Pressure (ICD-10-PCS; 2021-08-07)
DX: A41.89 Other specified sepsis (principal); U07.1 COVID-19; J12.82 Pneumonia due to coronavirus disease 2019; R65.21 Severe sepsis with septic shock; J80 Acute respiratory distress syndrome; E66.2 Morbid (severe) obesity with alveolar hypoventilation; E87.1 Hypo-osmolality and hyponatremia; D68.9 Coagulation defect, unspecified; B37.0 Candidal stomatitis; E44.0 Moderate protein-calorie malnutrition; I50.30 Unspecified diastolic (congestive) heart failure; N39.0 Urinary tract infection, site not specified; B30.8 Other viral conjunctivitis; E78.5 Hyperlipidemia, unspecified; K21.9 Gastro-esophageal reflux disease without esophagitis; F41.9 Anxiety disorder, unspecified; E11.65 Type 2 diabetes mellitus with hyperglycemia; E87.6 Hypokalemia; Z68.28 Body mass index [BMI] 28.0-28.9, adult
CPT/HCPCS: 36415; 36600; 71045; 71275; 80048; 80053; 82728; 82803; 82805; 82947; 82962; 83036; 83520; 83615; 83735; 83880; 84100; 84145; 84478; 85007; 85025; 85027; 85379; 86140; 93005; 93306; 93970; 94640; 94660; 94760; G0378; J3490; Q9967; J0456; J0696; J1100; J1170; J1644; J1650; J1815; J1940; J2060; J2405; J2920; J2930; J3262; J3475; J7030; J7040; J7050; J7070; J7120; J7512; U0003

== ENCOUNTER 2021-08-29 13:56 | Inpatient (IN) | payer SELFPAY ==
[2021-08-29] MEDS ORDERED: SODIUM CHLORIDE 0.9% 1000 ML 1,000 ML IV ONE (14:09)
--- NOTE | 2021-08-29 14:13 | Emergency Department Report ---
HPI - General Chief Complaint: Dyspnea/Respdistress Time Seen by Provider: 08/29/21 14:02 - HPI HPI: This is a 50-year-old female who presents to the emergency department via EMS from home with complaint of shortness of breath and hypoxia. EMS found the patient to have a room air oxygen saturation of 62%. Her oxygen saturation, but not her work of breathing, improved with a nonrebreather. The patient also received albuterol, Solu-Medrol, and received half of a 2 g magnesium dose before her IV blew. The patient just was discharged home from this hospital yesterday after being admitted here on 04/17/2021 for Covid and pneumonia. Patient does not speak Upper Sorbian but her daughter, who is vaccinated for COVID-19, is currently at bedside providing history and translation. ED Past Medical Hx - Past Medical History Hx Deep Vein Thrombosis: No Additional medical history: high cholesterol - Surgical History Hx Pacemaker: No Hx Internal Defibrillator: No Additional Surgical History: abdominal surgery (liver) - Social History Smoking Status: Never Smoker - Medications Home Medications: Home Medications Medication Instructions Recorded Confirmed Last Taken Type ALPRAZolam [Xanax TAB] 1 mg PO BID PRN #7 tablet 08/28/21 08/29/21 08/29/21 08:00 Rx Calcium Carbonate [Tums 500MG CHEW] 500 mg PO BID PRN #14 tablet 08/28/21 08/29/21 08/29/21 08:00 Rx Cholecalciferol Vit D3 [Vitamin D3 1,000 unit PO QDAY #14 tablet 08/28/21 08/29/21 08/29/21 08:00 Rx 1,000 UNIT TAB] Insulin Glargine [Lantus VIAL] 10 units SUB-Q DAILY 30 Days #2 08/28/21 08/29/21 08/29/21 08:00 Rx vial Insulin Regular, Human [Novolin R] 4 units SC ACHS 30 Days #2 vial 08/28/21 08/29/21 Unknown Rx predniSONE 6 tab PO QDAY #104 tab 08/28/21 08/29/21 08/29/21 07:00 Rx ED Review of Systems ROS: Stated complaint: FLORINA Other details as noted in HPI Comment: All other systems reviewed and negative Constitutional: denies: chills, fever Eyes: denies: eye pain, vision change ENT: denies: ear pain, throat pain Respiratory: cough, shortness of breath, SOB with exertion Cardiovascular: denies: chest pain, edema Gastrointestinal: denies: abdominal pain, vomiting Genitourinary: denies: dysuria, discharge Musculoskeletal: denies: back pain, arthralgia Skin: denies: rash, lesions Neurological: denies: headache, weakness Physical Exam - Physical Exam Physical Exam: GENERAL: The patient is ill-appearing. Well-developed well-nourished. HENT: Normocephalic. Atraumatic. Patient has moist mucous membranes. EYES: Extraocular motions are intact. NECK: Supple. Trachea is midline. CHEST/LUNGS: Bilateral rhonchi. There is tachypnea and accessory muscle use and conversational dyspnea. HEART/CARDIOVASCULAR: Regular. There is mild to moderate tachycardia. There is no murmur. ABDOMEN: Abdomen is soft, nontender. Patient has normal bowel sounds. SKIN: Skin is warm and dry. NEURO: The patient is awake, alert, and oriented. The patient is cooperative. MUSCULOSKELETAL: There is no tenderness or deformity. - ABG Interpretation Ph: 7.332 PCO2: 92 PO2: 98 Bicarbonate: 47 Interpretation: respiratory acidosis, metabolic alkalosis ED Medical Decision Making - Lab Data Result diagrams: 08/29/21 14:31 08/29/21 14:31 Lab Results 08/29/21 08/29/21 08/29/21 Range/Units 14:31 14:31 14:31 WBC 18.6 H (4.5-11.0) K/mm3 RBC 4.56 (3.65-5.03) M/mm3 Hgb 13.2 (10.1-14.3) gm/dl Hct 41.8 (30.3-42.9) % MCV 92 (79-97) fl MCH 29 (28-32) pg MCHC 32 (30-34) % RDW 16.7 H (13.2-15.2) % Plt Count 352 (140-440) K/mm3 Lymph % (Auto) 7.5 L (13.4-35.0) % [place] % (Auto) 4.6 (0.0-7.3) % Eos % (Auto) 0.1 (0.0-4.3) % Baso % (Auto) 0.1 (0.0-1.8) % Lymph # (Auto) 1.4 (1.2-5.4) K/mm3 [place] # (Auto) 0.9 H (0.0-0.8) K/mm3 Eos # (Auto) 0.0 (0.0-0.4) K/mm3 Baso # (Auto) 0.0 (0.0-0.1) K/mm3 Seg Neutrophils % 87.7 H (40.0-70.0) % Seg Neutrophils # 16.3 H (1.8-7.7) K/mm3 PT 11.9 L (12.2-14.9) Sec. INR 0.79 L (0.87-1.13) APTT 22.5 L (24.2-36.6) Sec. D-Dimer 237.47 H (0-234) ng/mlDDU ABG pH (7.350-7.450) pH Units ABG pCO2 mm Hg ABG pO2 (80.0-90.0) mm Hg ABG HCO3 (20.0-26.0) mmol/L ABG O2 Saturation (95.0-99.0) % ABG O2 Content (0.0-44) ABG Base Excess (-2.0-3.0) mmol/L ABG Hemoglobin (12.0-16.0) gm/dl ABG Carboxyhemoglobin (0.0-5.0) % ABG Methemoglobin (0.0-1.5) % Oxyhemoglobin (95.0-99.0) % FiO2 % Sodium 139 (137-145) mmol/L Potassium 3.9 (3.6-5.0) mmol/L Chloride 86.6 L (98-107) mmol/L Carbon Dioxide 41 H* (22-30) mmol/L Anion Gap 15 mmol/L BUN 19 H (7-17) mg/dL Creatinine 0.2 L (0.6-1.2) mg/dL Estimated GFR > 60 ml/min BUN/Creatinine Ratio 95 % Glucose 363 H (65-100) mg/dL Calcium 9.3 (8.4-10.2) mg/dL Ferritin (10.0-200.0) ng/mL Total Bilirubin 0.20 (0.1-1.2) mg/dL AST 23 (5-40) units/L ALT 78 H (7-56) units/L Alkaline Phosphatase 76 (35-129) units/L Lactate Dehydrogenase 348 H (91-180) units/L Troponin T 0.014 (0.00-0.029) ng/mL C-Reactive Protein 0.40 (0.00-1.30) mg/dL NT-Pro-B Natriuret Pep 179.4 (0-450) pg/mL Total Protein 6.8 (6.3-8.2) g/dL Albumin 3.7 L (3.9-5) g/dL Albumin/Globulin Ratio 1.2 % 08/29/21 08/29/21 Range/Units 14:31 15:30 WBC (4.5-11.0) K/mm3 RBC (3.65-5.03) M/mm3 Hgb (10.1-14.3) gm/dl Hct (30.3-42.9) % MCV (79-97) fl MCH (28-32) pg MCHC (30-34) % RDW (13.2-15.2) % Plt Count (140-440) K/mm3 Lymph % (Auto) (13.4-35.0) % [place] % (Auto) (0.0-7.3) % Eos % (Auto) (0.0-4.3) % Baso % (Auto) (0.0-1.8) % Lymph # (Auto) (1.2-5.4) K/mm3 [place] # (Auto) (0.0-0.8) K/mm3 Eos # (Auto) (0.0-0.4) K/mm3 Baso # (Auto) (0.0-0.1) K/mm3 Seg Neutrophils % (40.0-70.0) % Seg Neutrophils # (1.8-7.7) K/mm3 PT (12.2-14.9) Sec. INR (0.87-1.13) APTT (24.2-36.6) Sec. D-Dimer (0-234) ng/mlDDU ABG pH 7.332 L (7.350-7.450) pH Units ABG pCO2 92.7 mm Hg ABG pO2 98.4 H (80.0-90.0) mm Hg ABG HCO3 47.9 H (20.0-26.0) mmol/L ABG O2 Saturation 96.5 (95.0-99.0) % ABG O2 Content 20.6 (0.0-44) ABG Base Excess 16.7 H (-2.0-3.0) mmol/L ABG Hemoglobin 13.9 (12.0-16.0) gm/dl ABG Carboxyhemoglobin 2.0 (0.0-5.0) % ABG Methemoglobin 0.5 (0.0-1.5) % Oxyhemoglobin 94.1 L (95.0-99.0) % FiO2 60 % Sodium (137-145) mmol/L Potassium (3.6-5.0) mmol/L Chloride (98-107) mmol/L Carbon Dioxide (22-30) mmol/L Anion Gap mmol/L BUN (7-17) mg/dL Creatinine (0.6-1.2) mg/dL Estimated GFR ml/min BUN/Creatinine Ratio % Glucose (65-100) mg/dL Calcium (8.4-10.2) mg/dL Ferritin 143.5 (10.0-200.0) ng/mL Total Bilirubin (0.1-1.2) mg/dL AST (5-40) units/L ALT (7-56) units/L Alkaline Phosphatase (35-129) units/L Lactate Dehydrogenase (91-180) units/L Troponin T (0.00-0.029) ng/mL C-Reactive Protein (0.00-1.30) mg/dL NT-Pro-B Natriuret Pep (0-450) pg/mL Total Protein (6.3-8.2) g/dL Albumin (3.9-5) g/dL Albumin/Globulin Ratio % - Radiology Data Radiology results: report reviewed CHEST 1 VIEW 08/29/2021 2:18 PM INDICATION / CLINICAL INFORMATION: SOB. COMPARISON: One view of the chest from 08/26/2021. FINDINGS: SUPPORT DEVICES: None. HEART / MEDIASTINUM: No significant abnormality. LUNGS / PLEURA: There are similar generalized bilateral airspace opacities. No significant pleural effusion. No pneumothorax. ADDITIONAL FINDINGS: No significant additional findings. IMPRESSION: Similar findings of bilateral pneumonia versus other air space disease. - Medical Decision Making This patient presents to the emergency department with shortness of breath and hypoxia. She was just discharged yesterday after about a 4-month stay due to Covid pneumonia and complications from COVID-19. The patient was 62% on room air, 73% on 2 L oxygen by nasal cannula. Upon arrival patient was placed on a nonrebreather and then on a CPAP. This helped with both the oxygen saturation and work of breathing. Chest x-ray shows bilateral pneumonia. Patient's labs shows a leukocytosis of 18,000, elevated bicarb of 41, hyperglycemia without diabetic ketoacidosis, some elevated inflammatory markers. ABG shows hypercapnia with a PCO2 of 92. The patient already had received albuterol and some Solu-Medrol and magnesium in route. She was given a dose of Decadron and azithromycin. Patient will be admitted to the hospital for further evaluation and treatment and was accepted for admission by the hospitalist, Dr. Terry. Critical Care Time: Yes Critical care time in (mins) excluding proc time.: 35 Critical care attestation.: If time is entered above; I have spent that time in minutes in the direct care of this critically ill patient, excluding procedure time. Critical care time was spent on this patient in doing her initial evaluation, multiple reevaluations, ordering and interpretation of labs and imaging, IV fluid resuscitation, IV Decadron, IV antibiotics, CPAP management. Critical Care Time: 35 minutes ED Disposition Clinical Impression: Suspected 2019 novel coronavirus infection, Hypoxia, Hypercapnia, Hyperglycemia Pneumonia Qualifiers: Pneumonia type: due to unspecified organism Laterality: bilateral Lung location: unspecified part of lung Qualified Code(s): J18.9 - Pneumonia, uns pecified organism Respiratory failure with hypoxia and hypercapnia Qualifiers: Chronicity: acute Qualified Code(s): J96.01 - Acute respiratory failure with hypoxia; J96.02 - Acute respiratory failure with hypercapnia Disposition: ADMITTED INPATIENT Is pt being admited?: Yes Condition: Serious Time of Disposition: 16:18
--- NOTE | 2021-08-29 14:42 | XRay Report ---
CHEST 1 VIEW 08/29/2021 2:18 PM INDICATION / CLINICAL INFORMATION: SOB. COMPARISON: One view of the chest from 08/26/2021. FINDINGS: SUPPORT DEVICES: None. HEART / MEDIASTINUM: No significant abnormality. LUNGS / PLEURA: There are similar generalized bilateral airspace opacities. No significant pleural ef fusion. No pneumothorax. ADDITIONAL FINDINGS: No significant additional findings. IMPRESSION: Similar findings of bilateral pneumonia versus other air space disease. Signer Name: Xavier Damico MD Signed: 08/29/2021 2:37 PM Workstation Name: [id number]
[2021-08-29] MEDS ORDERED: dexAMETHasone 4 MG/ML VIAL IV ONE (14:54)
[2021-08-29 14:58] LABS: Basophils % (Auto) 0.1 % (0.0-1.8); Eosinophils % (Auto) 0.1 % (0.0-4.3); Hematocrit 41.8 % (30.3-42.9); Hemoglobin 13.2 gm/dl (10.1-14.3); Lymphocytes # (Auto) 1.4 K/mm3 (1.2-5.4); Lymphocytes % (Auto) 7.5 % (13.4-35.0); Mean Corpuscular HGB Conc 32 % (30-34); Mean Corpuscular Volume 92 fl (79-97); Monocytes # (Auto) 0.9 K/mm3 (0.0-0.8); Monocytes % (Auto) 4.6 % (0.0-7.3); Platelet Count 352 K/mm3 (140-440); Red Blood Count 4.56 M/mm3 (3.65-5.03); Red Cell Distribution Width 16.7 % (13.2-15.2)
[2021-08-29 15:08] LABS: INR 0.79 (0.87-1.13)
[2021-08-29 15:09] LABS: Partial Thromboplastin Time 22.5 Sec. (24.2-36.6)
[2021-08-29 15:10] LABS: Alanine Aminotransferase 78 units/L (7-56); Albumin 3.7 g/dL (3.9-5); Blood Urea Nitrogen 19 mg/dL (7-17); Calcium 9.3 mg/dL (8.4-10.2); Hemolysis Index 12
[2021-08-29 15:14] LABS: BUN/Creatinine Ratio 95
[2021-08-29] MEDS ORDERED: AZITHROMYCIN/NS 500 MG/250 ML 500 MG/250 ML BAG IV ONE (16:17)
[2021-08-29 18:18] LABS: ABG Base Excess 16.7 mmol/L (-2.0-3.0); ABG HCO3 47.9 mmol/L (20.0-26.0); ABG PCO2 92.7 mm Hg; ABG PH 7.332 pH Units (7.350-7.450); ABG PO2 98.4 mm Hg (80.0-90.0)
[2021-08-29 18:33] LABS: ABG Methemoglobin 0.5 % (0.0-1.5); ABG Oxygen Saturation 96.5 % (95.0-99.0)
--- NOTE | 2021-08-29 22:42 | History and Physical Report ---
History of Present Illness Date of examination: 08/29/21 Date of admission: 08/29/21 16:18 Chief complaint: Severe shortness of breath since discharge yesterday History of present illness: This is a 50-year-old female who presents to the emergency department via EMS from home with complaint of shortness of breath and hypoxia. EMS found the patient to have a room air oxygen saturation of 62%. Her oxygen saturation, but not her work of breathing, improved with a nonrebreather. The patient also received albuterol, Solu-Medrol, and received half of a 2 g magnesium dose before her IV blew. The patient just was discharged home from this hospital yesterday after being admitted here on 04/17/2021 for Covid and pneumonia. Patient does not speak Spanish but her daughter, who is vaccinated for COVID-19, is currently at bedside providing history and translation. Discharge summary from 08/28/2021 Hospitalization Condition: Fair Hospital course: -Acute hypoxic/hypercapneic respiratory failure --Severe ARDS. Suspected possible post Covid pneumonia lung fibrosis. Continues to require high flow nasal cannula oxygen 30 L/50% FiO2/O2 sats 97% refusing BiPAP, on 100% nonrebreather , Wean as tolerated. Maintain SpO2 >88% Steroids resumed on IV Solu-Medrol on 08/16/2021. Will maintain high-dose IV Solu-Medrol at 125 mg every 8 hours X-ray chest 08/22/2021: Extensive bilateral parenchymal disease unchanged Discussed with pulmonology Dr. Merida --Metabolic alkalosis Continue monitoring --Heart failure with preserved ejection fraction -TTE: LVEF 55-60% with diastolic dysfunction -will continue to monitor for signs of fluid overload. -On intermittent diuretics. --COVID-19 infection -Has completed treatment. --Type 2 diabetes -Uncontrolled most likely due to steroid -Continue Lantus to 20 SQ daily. Continue sliding scale insulin. --Anxiety -Stable -continue xanax --DVT prophylaxis -Lovenox 40 daily --Deconditioning PT OT when stable Possible SNF placement at discharge Resolved issues #Sepsis secondary to COVID-19 #Iatrogenic diarrhea #Hypomagnesemia #Hyponatremia #Protein calorie malnutrition #Dysuria #Hypokalemia #Possible UTI Disposition: HOME HEALTH CARE SERVICE Final Discharge Diagnosis (Prints w/discharge instructions): COVID-19 infection. Heart failure with preserved ejection fraction. Acute hypoxic respiratory failure/improved on 3 L oxygen now. Type 2 diabetes mellitus. Anxiety disorder. Generalized deconditioning. Sepsis due to COVID-19 resolved. Elec trolyte imbalances corrected. UTI corrected Time spent for discharge: 50 min - Past Medical History --Deep Vein Thrombosis: No --high cholesterol - Surgical History --abdominal surgery (liver) - Social History --Never Smoker - Medications Home Medications: Home Medications Medication Instructions Recorded Confirmed Last Taken Type ALPRAZolam [Xanax TAB] 1 mg PO BID PRN #7 tablet 08/28/21 08/29/21 08/29/21 08:00 Rx Calcium Carbonate [Tums 500MG CHEW] 500 mg PO BID PRN #14 tablet 08/28/21 08/29/21 08/29/21 08:00 Rx Cholecalciferol Vit D3 [Vitamin D3 1,000 unit PO QDAY #14 tablet 08/28/21 08/29/21 08/29/21 08:00 Rx 1,000 UNIT TAB] Insulin Glargine [Lantus VIAL] 10 units SUB-Q DAILY 30 Days #2 08/28/21 08/29/21 08/29/21 08:00 Rx vial Insulin Regular, Human [Novolin R] 4 units SC ACHS 30 Days #2 vial 08/28/21 08/29/21 Unknown Rx predniSONE 6 tab PO QDAY #104 tab 08/28/21 08/29/21 08/29/21 07:00 Rx Review of Systems ROS: Stated complaint: FLORINA Other details as noted in HPI Comment: All other systems reviewed and negative Constitutional: denies: chills, fever Eyes: denies: eye pain, vision change ENT: denies: ear pain, throat pain Respiratory: cough, shortness of breath, SOB with exertion Cardiovascular: denies: chest pain, edema Gastrointestinal: denies: abdominal pain, vomiting Genitourinary: denies: dysuria, discharge Musculoskeletal: denies: back pain, arthralgia Skin: denies: rash, lesions Neurological: denies: headache, weakness Medications and Allergies Allergies Allergy/AdvReac Type Severity Reaction Status Date / Time No Known Allergies Allergy Verified 04/21/21 01:13 Home Medications Medication Instructions Recorded Confirmed Last Taken Type ALPRAZolam [Xanax TAB] 1 mg PO BID PRN #7 tablet 08/28/21 08/29/21 08/29/21 08:00 Rx Calcium Carbonate [Tums 500MG CHEW] 500 mg PO BID PRN #14 tablet 08/28/21 08/29/21 08/29/21 08:00 Rx Cholecalciferol Vit D3 [Vitamin D3 1,000 unit PO QDAY #14 tablet 08/28/21 08/29/21 08/29/21 08:00 Rx 1,000 UNIT TAB] Insulin Glargine [Lantus VIAL] 10 units SUB-Q DAILY 30 Days #2 08/28/21 08/29/21 08/29/21 08:00 Rx vial Insulin Regular, Human [Novolin R] 4 units SC ACHS 30 Days #2 vial 08/28/21 08/29/21 Unknown Rx predniSONE 6 tab PO QDAY #104 tab 08/28/21 08/29/2121 07:00 Rx Exam - Constitutional Vitals: Temp Pulse Resp BP Pulse Ox 98.8 F 106 H 30 H 124/67 99 08/29/21 15:00 08/29/21 19:58 08/29/21 19:58 08/29/21 22:01 08/29/21 22:01 General appearance: Present: severe distress, well-nourished - EENT Eyes: Present: PERRL ENT: hearing intact, clear oral mucosa - Neck Neck: Present: supple, normal ROM - Respiratory Respiratory effort: normal Respiratory: bilateral: diminished, rhonchi, wheezing - Cardiovascular Heart rate: 98 Rhythm: regular Heart Sounds: Present: S1 & S2. Absent: rub, click - Extremities Extremities: no ischemia, pulses intact, pulses symmetrical, No edema Peripheral Pulses: within normal limits - Abdominal General gastrointestinal: Present: soft, non-tender, non-distended, normal bowel sounds Female genitourinary: Present: normal - Integumentary Integumentary: Present: clear, warm, dry - Musculoskeletal Musculoskeletal: gait normal, strength equal bilaterally - Psychiatric Psychiatric: appropriate mood/affect, intact judgment & insight - Neurologic Neurologic: CNII-XII intact, moves all extremities - Allied Health Allied health notes reviewed: nursing, case management HEART Score - HEART Score Age: 45-65 Risk factors: 1-2 risk factors Troponin: Troponin T 0.014 ng/mL (0.00-0.029) 08/29/21 14:31 Troponin: < normal limit - Critical Actions Critical Actions: 0-3 pts:0.9-1.7%risk of adverse cardiac event.Candidate for discharge Results - Labs CBC & Chem 7: 08/29/21 14:31 08/29/21 14:31 Labs: Laboratory Last Values WBC 18.6 K/mm3 (4.5-11.0) H 08/29/21 14:31 RBC 4.56 M/mm3 (3.65-5.03) 08/29/21 14:31 Hgb 13.2 gm/dl (10.1-14.3) 08/29/21 14:31 Hct 41.8 % (30.3-42.9) 08/29/21 14:31 MCV 92 fl (79-97) 08/29/21 14:31 MCH 29 pg (28-32) 08/29/21 14:31 MCHC 32 % (30-34) 08/29/21 14:31 RDW 16.7 % (13.2-15.2) H 08/29/21 14:31 Plt Count 352 K/mm3 (140-440) 08/29/21 14:31 Lymph % (Auto) 7.5 % (13.4-35.0) L 08/29/21 14:31 Bates % (Auto) 4.6 % (0.0-7.3) 08/29/21 14:31 Eos % (Auto) 0.1 % (0.0-4.3) 08/29/21 14:31 Baso % (Auto) 0.1 % (0.0-1.8) 08/29/21 14:31 Lymph # (Auto) 1.4 K/mm3 (1.2-5.4) 08/29/21 14:31 Bates # (Auto) 0.9 K/mm3 (0.0-0.8) H 08/29/21 14:31 Eos # (Auto) 0.0 K/mm3 (0.0-0.4) 08/29/21 14:31 Baso # (Auto) 0.0 K/mm3 (0.0-0.1) 08/29/21 14:31 Seg Neutrophils % 87.7 % (40.0-70.0) H 08/29/21 14:31 Seg Neutrophils # 16.3 K/mm3 (1.8-7.7) H 08/29/21 14:31 PT 11.9 Sec. (12.2-14.9) L 08/29/21 14:31 INR 0.79 (0.87-1.13) L 08/29/21 14:31 APTT 22.5 Sec. (24.2-36.6) L 08/29/21 14:31 D-Dimer 237.47 ng/mlDDU (0-234) H 08/29/21 14:31 ABG pH 7.332 pH Units (7.350-7.450) L 08/29/21 15:30 ABG pCO2 92.7 mm Hg 08/29/21 15:30 ABG pO2 98.4 mm Hg (80.0-90.0) H 08/29/21 15:30 ABG HCO3 47.9 mmol/L (20.0-26.0) H 08/29/21 15:30 ABG O2 Saturation 96.5 % (95.0-99.0) 08/29/21 15:30 ABG O2 Content 20.6 (0.0-44) 08/29/21 15:30 ABG Base Excess 16.7 mmol/L (-2.0-3.0) H 08/29/21 15:30 ABG Hemoglobin 13.9 gm/dl (12.0-16.0) 08/29/21 15:30 ABG Carboxyhemoglobin 2.0 % (0.0-5.0) 08/29/21 15:30 ABG Methemoglobin 0.5 % (0.0-1.5) 08/29/21 15:30 Oxyhemoglobin 94.1 % (95.0-99.0) L 08/29/21 15:30 FiO2 60 % 08/29/21 15:30 Sodium 139 mmol/L (137-145) 08/29/21 14:31 Potassium 3.9 mmol/L (3.6-5.0) 08/29/21 14:31 Chloride 86.6 mmol/L (98-107) L 08/29/21 14:31 Carbon Dioxide 41 mmol/L (22-30) H* 08/29/21 14:31 Anion Gap 15 mmol/L 08/29/21 14:31 BUN 19 mg/dL (7-17) H 08/29/21 14:31 Creatinine 0.2 mg/dL (0.6-1.2) L 08/29/21 14:31 Estimated GFR > 60 ml/min 08/29/21 14:31 BUN/Creatinine Ratio 95 % 08/29/21 14:31 Glucose 363 mg/dL (65-100) H 08/29/21 14:31 Calcium 9.3 mg/dL (8.4-10.2) 08/29/21 14:31 Ferritin 143.5 ng/mL (10.0-200.0) 08/29/21 14:31 Total Bilirubin 0.20 mg/dL (0.1-1.2) 08/29/21 14:31 AST 23 units/L (5-40) 08/29/21 14:31 ALT 78 units/L (7-56) H 08/29/21 14:31 Alkaline Phosphatase 76 units/L (35-129) 08/29/21 14:31 Lactate Dehydrogenase 348 units/L (91-180) H 08/29/21 14:31 Troponin T 0.014 ng/mL (0.00-0.029) 08/29/21 14:31 C-Reactive Protein 0.40 mg/dL (0.00-1.30) 08/29/21 14:31 NT-Pro-B Natriuret Pep 179.4 pg/mL (0-450) 08/29/21 14:31 Total Protein 6.8 g/dL (6.3-8.2) 08/29/21 14:31 Albumin 3.7 g/dL (3.9-5) L 08/29/21 14:31 Albumin/Globulin Ratio 1.2 % 08/29/21 14:31 Procalcitonin < 0.05 ng/mL (<0.15) 08/29/21 14:31 Microbiology: Microbiology 08/29/21 16:30 Peripheral/Venous Blood Culture - Preliminary Culture in Progress 08/29/21 16:19 Peripheral/Venous Blood Culture - Preliminary Culture in Progress - Imaging and Cardiology Chest x-ray: report reviewed Imaging and Cardiology: \Chest x-ray Bilateral pneumonia versus other airspace disease/ Assessment and Plan Advance Directives: Yes (Full code) VTE prophylaxis?: Chemical Plan of care discussed with patient/family: Yes - Patient Problems (1) Acute hypoxemic respiratory failure Current Visit: No Status: Acute Plan to address problem: Severe respiratory failure Patient on BiPAP Patient is also hypercapnic Pulmonary consult requested Patient started on IV Solu-Medrol at 125 every 8 which may be tapered Also duo nebs [id number] and as needed IV Zithromax and Rocephin (2) Hypercapnia Current Visit: Yes Status: Acute Plan to address problem: Patient on BiPAP to decrease the CO2 retention Poor prognosis (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 Current Visit: Yes Status: Acute Plan to address problem: 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
[2021-08-29] MEDS ORDERED: ACETAMINOPHEN 325 MG TAB PO PRN (22:44)
[2021-08-29] MEDS ORDERED: ONDANSETRON 4 MG/2 ML INJ IV PRN (22:44)
[2021-08-29] MEDS ORDERED: SODIUM CHLORIDE 0.9% 1000 ML 1,000 ML IV SCH (22:45)
[2021-08-29] MEDS ORDERED: METOCLOPRAMIDE 10 MG/2 ML INJ IV PRN (22:48)
[2021-08-29] MEDS ORDERED: IPRATROPIUM/ALBUTEROL SULFATE 3 ML AMPUL.NEB IH PRN (22:55)
[2021-08-29] MEDS ORDERED: ALBUTEROL 2.5 MG/3 ML NEBU IH PRN (23:08)
[2021-08-29] MEDS ORDERED: ENOXAPARIN 40 MG/0.4 ML INJ SUB-Q SCH (23:30)
[2021-08-30] MEDS: methylPREDNISolone Sod Succinate 125 MG/2 ML INJ IV SCH ×4 (00:53→21:14)
[2021-08-30] MEDS: ENOXAPARIN 40 MG/0.4 ML INJ SUB-Q SCH ×2 (00:53→21:14)
[2021-08-30] MEDS: FAMOTIDINE 20 MG/2 ML INJ IV SCH ×3 (01:17→21:15)
[2021-08-30] MEDS: oxyCODONE /ACETAMINOPHEN 5-325MG TAB PO PRN ×2 (01:17→17:11)
[2021-08-30] MEDS ORDERED: IPRATROPIUM/ALBUTEROL SULFATE 3 ML AMPUL.NEB IH SCH (08:00)
--- NOTE | 2021-08-30 08:30 | Progress Note ---
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 Gomes PCR test is negative ID consult requested -- IDDM (insulin dependent diabetes mellitus) Current Visit: Yes Status: Chronic Continue home insulin and coverage Check hemoglobin A1c --[place] (generalized anxiety disorder) Current Visit: Yes Status: Chronic Continue Xanax as necessary --DVT prophylaxis Current Visit: No Status: Acute On Lovenox and GI prophylaxis --Advance care planning Current Visit: Yes Status: Acute We will closely monitor the patient and adjust management as needed Wean oxygen back to 3 to 4 L, discharge when stable History Interval history: Seen and examined the patient at the bedside Patient was discharged 2 days ago, readmitted with acute respiratory failure Patient was not using nasal cannula oxygen when the EMS arrived Patient is nervous feels slightly better Denies chest pain mild shortness of Hospitalist Physical - Constitutional Vitals: Temp Pulse Resp BP Pulse Ox 97.7 F 88 22 106/56 97 08/30/21 04:40 08/30/21 04:40 08/30/21 04:40 08/30/21 04:40 08/30/21 04:40 General appearance: Present: no acute distress, well-nourished - EENT Eyes: Present: PERRL, EOM intact - Neck Neck: Present: supple, normal ROM - Respiratory Respiratory effort: normal Respiratory: bilateral: diminished, rhonchi, negative: rales, wheezing - Cardiovascular Rhythm: regular Heart Sounds: Present: S1 & S2 - Extremities Extremities: no ischemia, No edema - Abdominal General gastrointestinal: soft, non-tender, non-distended, normal bowel sounds - Integumentary Integumentary: Present: clear, warm - Psychiatric Psychiatric: appropriate mood/affect, cooperative - Neurologic Neurologic: moves all extremities HEART Score - HEART Score Age: 45-65 Risk factors: 1-2 risk factors Troponin: Troponin T 0.014 ng/mL (0.00-0.029) 08/29/21 14:31 Troponin: < normal limit - Critical Actions Critical Actions: 0-3 pts:0.9-1.7%risk of adverse cardiac event.Candidate for discharge Results - Labs CBC & Chem 7: 08/30/21 06:41 08/30/21 06:41 Labs: Laboratory Last Values WBC 18.6 K/mm3 (4.5-11.0) H 08/29/21 14:31 RBC 4.56 M/mm3 (3.65-5.03) 08/29/21 14:31 Hgb 13.2 gm/dl (10.1-14.3) 08/29/21 14:31 Hct 41.8 % (30.3-42.9) 08/29/21 14:31 MCV 92 fl (79-97) 08/29/21 14:31 MCH 29 pg (28-32) 08/29/21 14:31 MCHC 32 % (30-34) 08/29/21 14:31 RDW 16.7 % (13.2-15.2) H 08/29/21 14:31 Plt Count 352 K/mm3 (140-440) 08/29/21 14:31 Lymph % (Auto) 7.5 % (13.4-35.0) L 08/29/21 14:31 Payne % (Auto) 4.6 % (0.0-7.3) 08/29/21 14:31 Eos % (Auto) 0.1 % (0.0-4.3) 08/29/21 14:31 Baso % (Auto) 0.1 % (0.0-1.8) 08/29/21 14:31 Lymph # (Auto) 1.4 K/mm3 (1.2-5.4) 08/29/21 14:31 [place] # (Auto) 0.9 K/mm3 (0.0-0.8) H 08/29/21 14:31 Eos # (Auto) 0.0 K/mm3 (0.0-0.4) 08/29/21 14:31 Baso # (Auto) 0.0 K/mm3 (0.0-0.1) 08/29/21 14:31 Seg Neutrophils % 87.7 % (40.0-70.0) H 08/29/21 14:31 Seg Neutrophils # 16.3 K/mm3 (1.8-7.7) H 08/29/21 14:31 PT 11.9 Sec. (12.2-14.9) L 08/29/21 14:31 INR 0.79 (0.87-1.13) L 08/29/21 14:31 APTT 22.5 Sec. (24.2-36.6) L 08/29/21 14:31 D-Dimer 237.47 ng/mlDDU (0-234) H 08/29/21 14:31 ABG pH 7.332 pH Units (7.350-7.450) L 08/29/21 15:30 ABG pCO2 92.7 mm Hg 08/29/21 15:30 ABG pO2 98.4 mm Hg (80.0-90.0) H 08/29/21 15:30 ABG HCO3 47.9 mmol/L (20.0-26.0) H 08/29/21 15:30 ABG O2 Saturation 96.5 % (95.0-99.0) 08/29/21 15:30 ABG O2 Content 20.6 (0.0-44) 08/29/21 15:30 ABG Base Excess 16.7 mmol/L (-2.0-3.0) H 08/29/21 15:30 ABG Hemoglobin 13.9 gm/dl (12.0-16.0) 08/29/21 15:30 ABG Carboxyhemoglobin 2.0 % (0.0-5.0) 08/29/21 15:30 ABG Methemoglobin 0.5 % (0.0-1.5) 08/29/21 15:30 Oxyhemoglobin 94.1 % (95.0-99.0) L 08/29/21 15:30 FiO2 60 % 08/29/21 15:30 Sodium 139 mmol/L (137-145) 08/29/21 14:31 Potassium 3.9 mmol/L (3.6-5.0) 08/29/21 14:31 Chloride 86.6 mmol/L (98-107) L 08/29/21 14:31 Carbon Dioxide 41 mmol/L (22-30) H* 08/29/21 14:31 Anion Gap 15 mmol/L 08/29/21 14:31 BUN 19 mg/dL (7-17) H 08/29/21 14:31 Creatinine 0.2 mg/dL (0.6-1.2) L 08/29/21 14:31 Estimated GFR > 60 ml/min 08/29/21 14:31 BUN/Creatinine Ratio 95 % 08/29/21 14:31 Glucose 363 mg/dL (65-100) H 08/29/21 14:31 POC Glucose 227 mg/dL (70-105) H 08/30/21 08:06 Calcium 9.3 mg/dL (8.4-10.2) 08/29/21 14:31 Ferritin 143.5 ng/mL (10.0-200.0) 08/29/21 14:31 Total Bilirubin 0.20 mg/dL (0.1-1.2) 08/29/21 14:31 AST 23 units/L (5-40) 08/29/21 14:31 ALT 78 units/L (7-56) H 08/29/21 14:31 Alkaline Phosphatase 76 units/L (35-129) 08/29/21 14:31 Lactate Dehydrogenase 348 units/L (91-180) H 08/29/21 14:31 Troponin T 0.014 ng/mL (0.00-0.029) 08/29/21 14:31 C-Reactive Protein 0.40 mg/dL (0.00-1.30) 08/29/21 14:31 NT-Pro-B Natriuret Pep 179.4 pg/mL (0-450) 08/29/21 14:31 Total Protein 6.8 g/dL (6.3-8.2) 08/29/21 14:31 Albumin 3.7 g/dL (3.9-5) L 08/29/21 14:31 Albumin/Globulin Ratio 1.2 % 08/29/21 14:31 Procalcitonin < 0.05 ng/mL (<0.15) 08/29/21 14:31 Microbiology: Microbiology 08/29/21 16:30 Peripheral/Venous Blood Culture - Preliminary Culture in Progress 08/29/21 16:19 Peripheral/Venous Blood Culture - Preliminary Culture in Progress Amos/IV: Voiding Method External Female Catheter Active Medications - Current Medications Current Medications: Generic Name Dose Route Start Last Admin Trade Name Freq PRN Reason Stop Dose Admin Acetaminophen 650 mg 08/29/21 22:44 Acetaminophen 325 Mg Tab PO Q4H PRN Pain MILD(1-3)/Fever >100.5/[place] Albuterol 2.5 mg 08/29/21 23:08 Albuterol 2.5 Mg/3 Ml Nebu IH Q3HRT PRN Wheezing Albuterol/Ipratropium 1 ampul 08/30/21 08:00 Ipratropium/Albuterol Sulfate 3 Ml Ampul.Neb IH QIDRT TUTU Enoxaparin Sodium 40 mg 08/29/21 23:30 08/30/21 00:53 Enoxaparin 40 Mg/0.4 Ml Inj SUB-Q 40 mg QDAY@2200 TUTU Administration Famotidine 20 mg 08/29/21 23:00 08/30/21 01:17 Famotidine 20 Mg/2 Ml Inj IV 20 mg BID TUTU Administration Sodium Chloride 1,000 mls @ 75 mls/hr 08/29/21 22:45 08/30/21 00:55 Nacl 0.9% 1000 Ml IV 08/30/21 10:00 75 mls/hr DIRECT TUTU Administration Ceftriaxone Sodium 2 gm in 100 mls @ 200 mls/hr 08/30/21 10:00 Rocephin/Ns 2 Gm/100 Ml IV Q24HR [facility] Protocol Azithromycin 500 mg in 250 mls @ 250 mls/hr 08/30/21 17:00 Zithromax/Ns IV Q24H TUTU Methylprednisolone Sodium Succinate 125 mg 08/29/21 23:00 08/30/21 05:28 Methylprednisolone Sod Succinate 125 Mg/2 Ml Inj IV 125 mg Q8HR TUTU Administration Metoclopramide HCl 10 mg 08/29/21 22:48 Metoclopramide 10 Mg/2 Ml Inj IV Q6H PRN Nausea And Vomiting Ondansetron HCl 4 mg 08/29/21 22:44 Ondansetron 4 Mg/2 Ml Inj IV Q8H PRN Nausea And Vomiting Oxycodone/Acetaminophen 1 tab 08/29/21 22:48 08/30/21 01:17 Oxycodone /Acetaminophen 5-325mg Tab PO 1 tab Q6H PRN Administration Pain, Moderate (4-6) Sodium Chloride 10 ml 08/30/21 10:00 Sodium Chloride 0.9% 10 Ml Flush Syringe IV BID TUTU Sodium Chloride 10 ml 08/29/21 22:44 Sodium Chloride 0.9% 10 Ml Flush Syringe IV PRN PRN LINE FLUSH
[2021-08-30 09:12] LABS: Alanine Aminotransferase 52 units/L (7-56); Albumin 3.3 g/dL (3.9-5); Blood Urea Nitrogen 10 mg/dL (7-17); Calcium 8.6 mg/dL (8.4-10.2); Hemolysis Index 4
[2021-08-30 09:22] LABS: Hematocrit 36.1 % (30.3-42.9); Hemoglobin 11.1 gm/dl (10.1-14.3); Mean Corpuscular HGB Conc 31 % (30-34); Mean Corpuscular Volume 92 fl (79-97); Platelet Count 242 K/mm3 (140-440); Red Blood Count 3.95 M/mm3 (3.65-5.03); Red Cell Distribution Width 17.1 % (13.2-15.2)
[2021-08-30 09:25] LABS: BUN/Creatinine Ratio 50
[2021-08-30] MEDS ORDERED: cefTRIAXone/NS 2 GM/100 ML 2 GM/100 ML BAG IV SCH ×2 (10:00)
--- NOTE | 2021-08-30 10:54 | Electrocardiograph Report ---
[facility] Test Date: 2021-08-29 Test Time: 21:22:51 Pat Name: ROMULO CULLEN Department: Room: A352 1 Gender: F Supervising Broker: ALEXSANDRA : 1970 Requested By: SUMIT LUGO Order Number: [id number] Reading MD: Rajesh Pete Measurements Intervals [place] Rate: 106 P: 54 MN: 134 QRS: 84 QRSD: 81 T: 75 QT: 331 QTc: 439 Interpretive Statements Sinus tachycardia Right atrial enlargement Compared to ECG 04/20/2021 06:04:13 Electronically Signed On 08-30-2021 10:54:22 EST by Rajesh Pete
[2021-08-30 12:12] LABS: Total Cells Counted 100
[2021-08-30 12:13] LABS: Macrocytosis Few; Platelet Estimate Consistent w Auto; Stomatocytes 1+
--- NOTE | 2021-08-30 16:34 | Consultation ---
History of Present Illness Consult date: 08/30/21 Reason for consult: hypoxemia History of present illness: 50 y/o female who spent 134 days in house with acute respiratory failure secondary to COVID pneumonia. Towards the end of that hospital stay she was diagnosed with fibroproliferative phase of ARDs and started on steroids to help wean FiO2 which helped. She was weaned down to 3 liters and discharged Thursday. She was readmitted yesterday with hypoxemia however she was found on room air by EMS and this was not explained. Remainder is negative. CXR is unchanged. Past History Past Medical History: other (COVID with chronic respiratory failure. and Anxiety, severe) Medications and Allergies Allergies Allergy/AdvReac Type Severity Reaction Status Date / Time No Known Allergies Allergy Verified 04/21/21 01:13 Home Medications Medication Instructions Recorded Confirmed Last Taken Type ALPRAZolam [Xanax TAB] 1 mg PO BID PRN #7 tablet 08/28/21 08/29/21 08/29/21 08:00 Rx Calcium Carbonate [Tums 500MG CHEW] 500 mg PO BID PRN #14 tablet 08/28/21 08/29/21 08/29/21 08:00 Rx Cholecalciferol Vit D3 [Vitamin D3 1,000 unit PO QDAY #14 tablet 08/28/21 08/29/21 08/29/21 08:00 Rx 1,000 UNIT TAB] Insulin Glargine [Lantus VIAL] 10 units SUB-Q DAILY 30 Days #2 08/28/21 08/29/21 08/29/21 08:00 Rx vial Insulin Regular, Human [Novolin R] 4 units SC ACHS 30 Days #2 vial 08/28/21 08/29/21 Unknown Rx predniSONE 6 tab PO QDAY #104 tab 08/28/21 08/29/21 08/29/21 07:00 Rx Active Meds: Active Medications Acetaminophen (Acetaminophen 325 Mg Tab) 650 mg PO Q4H PRN PRN Reason: Pain MILD(1-3)/Fever >100.5/[place] Enoxaparin Sodium (Enoxaparin 40 Mg/0.4 Ml Inj) 40 mg SUB-Q QDAY@2200 [facility] Last Admin: 08/30/21 00:53 Dose: 40 mg Documented by: Famotidine (Famotidine 20 Mg/2 Ml Inj) 20 mg IV BID [facility] Last Admin: 08/30/21 12:30 Dose: 20 mg Documented by: Methylprednisolone Sodium Succinate (Methylprednisolone Sod Succinate 125 Mg/2 Ml Inj) 125 mg IV Q8HR [facility] Last Admin: 08/30/21 05:28 Dose: 125 mg Documented by: Metoclopramide HCl (Metoclopramide 10 Mg/2 Ml Inj) 10 mg IV Q6H PRN PRN Reason: Nausea And Vomiting Ondansetron HCl (Ondansetron 4 Mg/2 Ml Inj) 4 mg IV Q8H PRN PRN Reason: Nausea And Vomiting Oxycodone/Acetaminophen (Oxycodone /Acetaminophen 5-325mg Tab) 1 tab PO Q6H PRN PRN Reason: Pain, Moderate (4-6) Last Admin: 08/30/21 01:17 Dose: 1 tab Documented by: Sodium Chloride (Sodium Chloride 0.9% 10 Ml Flush Syringe) 10 ml IV BID [facility] Last Admin: 08/30/21 12:31 Dose: 10 ml Documented by: Sodium Chloride (Sodium Chloride 0.9% 10 Ml Flush Syringe) 10 ml IV PRN PRN PRN Reason: LINE FLUSH Review of Systems All systems: negative Physical Examination Vital signs: Vital Signs Pulse Resp Pulse Ox 93 H 43 H 95 08/29/21 14:36 08/29/21 14:36 08/29/21 14:36 Results - Laboratory Findings CBC and BMP: 08/30/21 06:41 08/30/21 06:41 ABG ABG pH 7.332 pH Units (7.350-7.450) L 08/29/21 15:30 ABG pCO2 92.7 mm Hg 08/29/21 15:30 ABG pO2 98.4 mm Hg (80.0-90.0) H 08/29/21 15:30 ABG O2 Saturation 96.5 % (95.0-99.0) 08/29/21 15:30 PT/INR, D-dimer PT 11.9 Sec. (12.2-14.9) L 08/29/21 14:31 INR 0.79 (0.87-1.13) L 08/29/21 14:31 D-Dimer 237.47 ng/mlDDU (0-234) H 08/29/21 14:31 Abnormal lab findings: Abnormal Labs 08/29/21 08/29/2108/29/21 14:31 14:31 14:31 WBC 18.6 H RDW 16.7 H Lymph % (Auto) 7.5 L [place] # (Auto) 0.9 H Seg Neutrophils % 87.7 H Seg Neuts % (Manual) Seg Neutrophils # 16.3 H Lymphocytes # (Manual) PT 11.9 L INR 0.79 L APTT 22.5 L D-Dimer 237.47 H ABG pH ABG pO2 ABG HCO3 ABG Base Excess Oxyhemoglobin Chloride 86.6 L Carbon Dioxide 41 H* BUN 19 H Creatinine 0.2 L Glucose 363 H POC Glucose ALT 78 H Lactate Dehydrogenase 348 H Total Protein Albumin 3.7 L 08/29/21 08/30/21 08/30/21 15:30 06:41 06:41 WBC RDW 17.1 H Lymph % (Auto) [place] # (Auto) Seg Neutrophils % Seg Neuts % (Manual) 99.0 H Seg Neutrophils # Lymphocytes # (Manual) 0.0 L PT INR APTT D-Dimer ABG pH 7.332 L ABG pO2 98.4 H ABG HCO3 47.9 H ABG Base Excess 16.7 H Oxyhemoglobin 94.1 L Chloride 95.3 L Carbon Dioxide 39 H BUN Creatinine < 0.2 L Glucose 222 H POC Glucose ALT Lactate Dehydrogenase Total Protein 5.6 L Albumin 3.3 L 08/30/21 08/30/21 08:06 11:26 WBC RDW Lymph % (Auto) [place] # (Auto) Seg Neutrophils % Seg Neuts % (Manual) Seg Neutrophils # Lymphocytes # (Manual) PT INR APTT D-Dimer ABG pH ABG pO2 ABG HCO3 ABG Base Excess Oxyhemoglobin Chloride Carbon Dioxide BUN Creatinine Glucose POC Glucose 227 H 271 H ALT Lactate Dehydrogenase Total Protein Albumin Assessment and Plan 50 y/o female with chronic respiratory failure from COVID, in the fibroproliferative phase of ARDS 1. Continue steroids, she was on a taper at discharge so please place on Prednisone 60 daily 2. Her hypercapnea I believe is related to increased alkalotic state from steroid use. She had HCO3's in the 40's prior to discharge. 3. Anxiety control per primary 4. Spoke with RT about weaning FiO2. Discontinue bipap therapy 5. Discharge soon.
[2021-08-30] MEDS ORDERED: AZITHROMYCIN/NS 500 MG/250 ML 500 MG/250 ML BAG IV SCH (17:00)
[2021-08-31] MEDS ORDERED: ZOLPIDEM 5 MG TAB PO PRN (00:37)
[2021-08-31] MEDS: methylPREDNISolone Sod Succinate 125 MG/2 ML INJ IV SCH ×2 (05:15→17:08)
[2021-08-31] MEDS: FAMOTIDINE 20 MG/2 ML INJ IV SCH (10:02)
[2021-08-31] MEDS: oxyCODONE /ACETAMINOPHEN 5-325MG TAB PO PRN (10:12)
[2021-08-31] MEDS ORDERED: DEXTROSE 50% IN WATER (25GM) 50 ML SYRINGE IV PRN (12:07)
--- NOTE | 2021-08-31 13:16 | Discharge Summary ---
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 Hospitalization Condition: Serious Pertinent studies: Chest x-ray bilateral pneumonia versus other airspace disease next Hospital course: -- Acute hypoxemic respiratory failure requiring BiPAP on admission Current Visit: No Status: Acute Severe respiratory failure Patient was discharged on 3 L of nasal cannula oxygen Currently patient is on 5 L nasal cannula oxygen Pulmonary evaluation noted and appreciated Wean as tolerated DC when stable --Hypercapnia Current Visit: Yes Status: Acute Closely monitor, treat the underlying cause -- [id number] syndrome Current Visit: Yes Status: Acute 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 Gomes PCR test is negative ID consult requested -- IDDM (insulin dependent diabetes mellitus) Current Visit: Yes Status: Chronic Continue home insulin and coverage Check hemoglobin A1c --[place] (generalized anxiety disorder) Current Visit: Yes Status: Chronic Continue Xanax as necessary --Moderate malnutrition/hypoalbuminemia Patient already has home oxygen, discharge medications steroids, albuterol inhalation as needed Pulmonary cleared stable at discharge Disposition: 01 HOME / SELF CARE / HOMELESS Final Discharge Diagnosis (Prints w/discharge instructions): Acute hypoxic respiratory failure requiring BiPAP on admission. Currently on 5 L of nasal cannula oxygen. history of recent COVID-19 positive status. COVID-19 test negative. Hypercapnia present on admission resolved. Post COVID-19 syndrome. Type 2 diabetes mellitus. Generalized anxiety disorder. Moderate malnutrition hypoalbuminemia Time spent for discharge: 35 minutes Core Measure Documentation - Palliative Care Palliative Care/ Comfort Measures: Not Applicable - Core Measures Any of the following diagnoses?: none Exam - Constitutional Vitals: Temp Pulse Resp BP Pulse Ox 98.4 F 102 H 16 113/68 96 08/31/21 04:26 08/31/21 04:26 08/31/21 04:26 08/31/21 04:26 08/31/21 11:39 General appearance: Present: no acute distress, well-nourished - EENT Eyes: Present: PERRL, EOM intact - Neck Neck: Present: supple, normal ROM - Respiratory Respiratory effort: normal Respiratory: bilateral: diminished, negative: rales, rhonchi, wheezing - Cardiovascular Rhythm: regular Heart Sounds: Present: S1 & S2 - Extremities Extremities: no ischemia, No edema - Abdominal General gastrointestinal: Present: soft, non-tender, non-distended, normal bowel sounds - Integumentary Integumentary: Present: clear, warm - Musculoskeletal Musculoskeletal: strength equal bilaterally, generalized weakness - Psychiatric Psychiatric: appropriate mood/affect, cooperative Plan Activity: advance as tolerated Diet: diabetic Special Instructions: home oxygen via (Continue home oxygen via nasal cannula 3 to 5 L as needed[you already have home O2]) Additional Instructions: Advised to continue home oxygen 3 to 5 L as needed. Ambulate as tolerated, follow-up with primary care physician, lung doctor per schedule. If you have worsening symptoms contact MD or go to the emergency room as needed Follow up with: PRIMARY CARE, [Primary Care Provider] - 3-5 Days JALIL LYNCH MD [Staff Physician] - 6 Weeks Prescriptions: Melatonin [Melatonin 5MG TAB] 1 tab PO QHS PRN #10 tablet PRN Reason: Insomnia ALPRAZolam [Xanax TAB] 1 mg PO BID PRN #7 tablet PRN Reason: Anxiety
[2021-08-31 13:47] VITALS: BP 103/52
[2021-08-31] MEDS ORDERED: INSULIN LISPRO 100 UNIT/ML SUB-Q SCH ×2 (16:30→22:00)
[2021-08-31] MEDS ORDERED: INSULIN GLARGINE 100 UNITS/ML SUB-Q SCH (22:00)
== END 2021-08-31 18:39 | disposition home or self-care (01) | DRG 189 ==
LOC: ED 13:56 → 3A 16:18
PROVIDERS: ADMIT Internal Medicine; ATTEND Internal Medicine
PROC: 4A033R1 Measurement of Arterial Saturation, Peripheral, Percutaneous Approach (ICD-10-PCS; principal; 2021-08-29)
PROC: 5A09357 Assistance with Respiratory Ventilation, Less than 24 Consecutive Hours, Continuous Positive Airway Pressure (ICD-10-PCS; 2021-08-29)
DX: J96.01 Acute respiratory failure with hypoxia (principal); J18.9 Pneumonia, unspecified organism; N39.0 Urinary tract infection, site not specified; I50.30 Unspecified diastolic (congestive) heart failure; E44.0 Moderate protein-calorie malnutrition; J96.02 Acute respiratory failure with hypercapnia; E78.00 Pure hypercholesterolemia, unspecified; F41.9 Anxiety disorder, unspecified; E11.65 Type 2 diabetes mellitus with hyperglycemia; Z20.822 Contact with and (suspected) exposure to COVID-19
CPT/HCPCS: 36415; 71045; 80053; 82728; 82803; 82962; 83615; 83880; 84145; 84484; 85007; 85025; 85379; 85610; 85730; 86140; 87040; 93005; 94640; 94660; 99291; G0378; J3490; Q0162; Q9967; J0456; J1100; J1650; J1815; J2930; J7030; U0003

== ENCOUNTER 2021-08-31 19:01 | Inpatient (IN) | payer SELFPAY ==
--- NOTE | 2021-08-31 19:12 | Emergency Department Report ---
ED Shortness of Breath HPI - General Chief Complaint: Dyspnea/Respdistress Stated Complaint: HARD TIME BREATHING Source: family Mode of arrival: Ambulatory Limitations: Altered Mental Status - History of Present Illness Initial Comments: Patient is a 50-year-old female history of diabetes also has a history of recent admission for COVID-19. Patient apparently spent approximately 5 months in the hospital was discharged return for a short stay and then was discharged again on today. Today right after discharge patient had shaking and was noted to have agonal breathing. She was rushed to the back of the emergency department where she required bagging blood sugar was checked and she eventually became awake. She is unable to give any additional history at this time. - Related Data Previous Rx's Medication Instructions Recorded Last Taken Type Calcium Carbonate [Tums 500MG CHEW] 500 mg PO BID PRN #14 tablet 08/28/21 08:00 Rx Cholecalciferol Vit D3 [Vitamin D3 1,000 unit PO QDAY #14 tablet 08/28/21 08/29/21 08:00 Rx 1,000 UNIT TAB] Insulin Glargine [Lantus VIAL] 10 units SUB-Q DAILY 30 Days #2 08/28/21 08/29/21 08:00 Rx vial Insulin Regular, Human [Novolin R] 4 units SC ACHS 30 Days #2 vial 08/28/21 Unknown Rx predniSONE 6 tab PO QDAY #104 tab 08/28/21 08/29/21 07:00 Rx ALPRAZolam [Xanax TAB] 1 mg PO BID PRN #7 tablet 08/31/21 Unknown Rx Melatonin [Melatonin 5MG TAB] 1 tab PO QHS PRN #10 tablet 08/31/21 Unknown Rx Allergies Allergy/AdvReac Type Severity Reaction Status Date / Time No Known Allergies Allergy Verified 04/21/21 01:13 ED Review of Systems ROS: Stated complaint: HARD TIME BREATHING Other details as noted in HPI Comment: Unobtainable due to pts medical conditions ED Past Medical Hx - Past Medical History Previous Medical History?: Yes Hx Diabetes: Yes Hx Deep Vein Thrombosis: No Hx Seizures: Yes Additional medical history: high cholesterol. COVID hospitalization - Surgical History Past Surgical History?: Yes Hx Pacemaker: No Hx Internal Defibrillator: No Additional Surgical History: abdominal surgery (liver) - Social History Smoking Status: Never Smoker - Medications Home Medications: Home Medications Medication Instructions Recorded Confirmed Last Taken Type Calcium Carbonate [Tums 500MG CHEW] 500 mg PO BID PRN #14 tablet 08/28/21 08/29/21 08/29/21 08:00 Rx Cholecalciferol Vit D3 [Vitamin D3 1,000 unit PO QDAY #14 tablet 08/28/21 08/29/21 08/29/21 08:00 Rx 1,000 UNIT TAB] Insulin Glargine [Lantus VIAL] 10 units SUB-Q DAILY 30 Days #2 08/28/21 08/29/21 08/29/21 08:00 Rx vial Insulin Regular, Human [Novolin R] 4 units SC ACHS 30 Days #2 vial 08/28/2108/14 Unknown Rx predniSONE 6 tab PO QDAY #104 tab 08/28/21 08/29/21 08/29/21 07:00 Rx ALPRAZolam [Xanax TAB] 1 mg PO BID PRN #7 tablet 08/31/21 Unknown Rx Melatonin [Melatonin 5MG TAB] 1 tab PO QHS PRN #10 tablet 08/31/21 Unknown Rx ED Physical Exam - General Limitations: Altered Mental Status General appearance: other (Initially patient was unresponsive) - Head Head exam: Present: atraumatic, normocephalic - Eye Eye exam: Present: normal appearance - ENT ENT exam: Present: mucous membranes moist - Neck Neck exam: Present: normal inspection - Respiratory Respiratory exam: Present: other (Apnea noted, patient had bilateral breath sounds with bagging) - Cardiovascular Cardiovascular Exam: Present: tachycardia - GI/Abdominal GI/Abdominal exam: Present: soft, normal bowel sounds - Rectal Rectal exam: Present: deferred - Extremities Exam Extremities exam: Present: normal inspection - Back Exam Back exam: Present: normal inspection - Neurological Exam Neurological exam: Present: other (Initially unresponsive being bagged pupils reactive not pinpoint) - Psychiatric Psychiatric exam: Present: normal affect, normal mood - Skin Skin exam: Present: warm, dry, intact, normal color. Absent: rash ED Course Vital Signs 08/31/21 09/01/21 19:35 00:45 Pulse Rate 102 H Respiratory 32 H Rate O2 Sat by Pulse 100 100 Oximetry - Reevaluation(s) Reevaluation #1: 09/01/21 00:58 Patient's chest x-ray appears stable. A CTA was ordered given elevated dimer. Given the ABG patient was placed on BiPAP as she does appear to be retaining. I discussed that we need to turn down the amount of oxygen patient is on. I just discussed with the hospitalist who recommends the patient be admitted to the ICU. Patient is still awaiting her CTA. ED Medical Decision Making - Lab Data Result diagrams: 08/31/21 19:32 08/31/21 19:32 - EKG Data -: EKG Interpreted by Me Rate: tachycardia - Radiology Data Radiology results: report reviewed, image reviewed - Medical Decision Making Patient is a 50-year-old female with history of recent Covid, prolonged admission, recent discharge here with initially apneic. Patient had to be bagged and she was almost intubated prior to regaining consciousness. Here patient had chest x-ray that showed opacities that were seen previously. Dimer was collected which is somewhat elevated. Patient also had ABG that showed elevated CO2 and mild acidemia. I have discussed with respiratory therapy who will decrease her oxygenation and place her on BiPAP. Plan for admission. Critical Care Time: Yes Critical care time in (mins) excluding proc time.: 45 Critical care attestation.: If time is entered above; I have spent that time in minutes in the direct care of this critically ill patient, excluding procedure time. ED Disposition Clinical Impression: Acute hypercapnic respiratory failure Disposition: 09 ADMITTED INPATIENT Is pt being admited?: Yes Does the pt Need Aspirin: No Condition: Stable Referrals: PRIMARY CARE, [Primary Care Provider] - 3-5 Days
[2021-08-31] MEDS ORDERED: ONDANSETRON 4 MG/2 ML INJ ONE (19:13)
[2021-08-31 19:41] LABS: Basophils % (Auto) 0.3 % (0.0-1.8); Hematocrit 39.9 % (30.3-42.9); Hemoglobin 12.5 gm/dl (10.1-14.3); Lymphocytes # (Auto) 1.6 K/mm3 (1.2-5.4); Lymphocytes % (Auto) 14.5 % (13.4-35.0); Mean Corpuscular HGB Conc 31 % (30-34); Mean Corpuscular Volume 93 fl (79-97); Platelet Count 289 K/mm3 (140-440); Red Blood Count 4.28 M/mm3 (3.65-5.03); Red Cell Distribution Width 16.4 % (13.2-15.2)
--- NOTE | 2021-08-31 19:52 | XRay Report ---
CHEST 1 VIEW 08/31/2021 7:18 PM INDICATION / CLINICAL INFORMATION: Dyspnea. COMPARISON: 08/29/21. FINDINGS: SUPPORT DEVICES: None. HEART / MEDIASTINUM: Unchanged. LUNGS / PLEURA: There are severe diffuse parenchymal opacities bilaterally, probably unchanged. No si gnificant pleural effusion. No pneumothorax. ADDITIONAL FINDINGS: Moderate gaseous distention of the stomach is a new finding. IMPRESSION: 1. Moderate gaseous distention of the stomach is new. 2. Severe diffuse bilateral parenchymal opacities have not changed significantly. Signer Name: Raymond Parsons MD Signed: 08/31/2021 7:48 PM Workstation Name: [id number]
[2021-08-31 19:54] LABS: Alanine Aminotransferase 46 units/L (7-56); Blood Urea Nitrogen 14 mg/dL (7-17); Calcium 9.7 mg/dL (8.4-10.2); Hemolysis Index 7
[2021-08-31 19:59] LABS: BUN/Creatinine Ratio 35
[2021-08-31 21:25] LABS: ABG HCO3 47.9 mmol/L (20.0-26.0); ABG Methemoglobin 0.7 % (0.0-1.5); ABG Oxygen Saturation 99.4 % (95.0-99.0); ABG PCO2 113.4 mm Hg; ABG PH 7.244 pH Units (7.350-7.450)
[2021-08-31 21:27] LABS: ABG PO2 307.7 mm Hg (80.0-90.0)
[2021-09-01 00:26] LABS: ABG Base Excess 14.8 mmol/L (-2.0-3.0); ABG HCO3 46.6 mmol/L (20.0-26.0); ABG Methemoglobin 0.6 % (0.0-1.5); ABG PCO2 111.3 mm Hg; ABG PH 7.24 pH Units (7.350-7.450)
[2021-09-01] MEDS ORDERED: ONDANSETRON 4 MG/2 ML INJ IV PRN (01:25)
[2021-09-01] MEDS ORDERED: ALBUTEROL 2.5 MG/3 ML NEBU IH PRN (01:25)
[2021-09-01] MEDS ORDERED: HYDROmorphone 1 MG/1 ML INJ IV PRN (01:25)
[2021-09-01] MEDS ORDERED: DEXTROSE 50% IN WATER (25GM) 50 ML SYRINGE IV PRN (01:25)
[2021-09-01] MEDS ORDERED: MORPHINE 2 MG/1 ML INJ IV PRN (01:25)
--- NOTE | 2021-09-01 01:33 | History and Physical Report ---
History of Present Illness Date of examination: 09/01/21 Date of admission: 09/01/21 Chief complaint: Dyspnea Respiratory distress History of present illness: 50-year-old female history of diabetes and Covid pneumonia was brought to the emergency room because of progressive shortness of breath and hypoxia. Patient apparently spent approximately 5 months in the hospital was discharged return for a short stay and then was discharged again on today. Today right after discharge patient had shaking and was noted to have agonal breathing. She was rushed to the back of the emergency department where she required bagging blood sugar was checked and she eventually became awake. She is unable to give any additional history at this time. In the emergency room patient ABG shows pH is 7.244. PCO2 113.4 PO2 307.7 bicarb 47.9 .patient had to be bagged and she was almost intubated prior to regaining consciousness. Here patient had chest x-ray that showed opacities that were seen previously. Dimer was collected which is somewhat elevated. Subsequently patient was put on BiPAP's were going to put the patient in IMCU we will put the patient on neb treatment and steroid antibiotic and consult pulmonary for evaluation Past History Past Medical History: diabetes, hyperlipidemia, seizures, other ( COVID-19 positive test (U07.1, COVID-19) with Acute Pneumonia (J12.89, Other viral pneumonia)(If respiratory failure or sepsis present, add as separate assessment) ) Medications and Allergies Allergies Allergy/AdvReac Type Severity Reaction Status Date / Time No Known Allergies Allergy Verified 04/21/21 01:13 Home Medications Medication Instructions Recorded Confirmed Last Taken Type Calcium Carbonate [Tums 500MG CHEW] 500 mg PO BID PRN #14 tablet 08/28/21 08/29/21 08/29/21 08:00 Rx Cholecalciferol Vit D3 [Vitamin D3 1,000 unit PO QDAY #14 tablet 08/28/21 08/29/21 08/29/21 08:00 Rx 1,000 UNIT TAB] Insulin Glargine [Lantus VIAL] 10 units SUB-Q DAILY 30 Days #2 08/28/21 08/29/21 08/29/21 08:00 Rx vial Insulin Regular, Human [Novolin R] 4 units SC ACHS 30 Days #2 vial 08/28/21 08/29/21 Unknown Rx predniSONE 6 tab PO QDAY #104 tab 08/28/21 08/29/21 08/29/21 07:00 Rx ALPRAZolam [Xanax TAB] 1 mg PO BID PRN #7 tablet 08/31/21 Unknown Rx Melatonin [Melatonin 5MG TAB] 1 tab PO QHS PRN #10 tablet 08/31/21 Unknown Rx Active Meds: Active Medications Acetaminophen (Acetaminophen 325 Mg Tab) 650 mg PO Q4H PRN PRN Reason: Pain MILD(1-3)/Fever >100.5/[place] Albuterol (Albuterol 2.5 Mg/3 Ml Nebu) 2.5 mg IH Q3HRT PRN PRN Reason: Shortness Of Breath Albuterol/Ipratropium (Ipratropium/Albuterol Sulfate 3 Ml Ampul.Neb) 1 ampul IH Q6HRT TUTU Dextrose (Dextrose 50% In Water (25gm) 50 Ml Syringe) 50 ml IV Q30MIN PRN; Protocol PRN Reason: Hypoglycemia Famotidine (Famotidine 20 Mg Tab) 20 mg PO BID TUTU Hydromorphone HCl (Hydromorphone 1 Mg/1 Ml Inj) 0.5 mg IV Q3H PRN PRN Reason: Pain , Severe (7-10) Morphine Sulfate (Morphine 2 Mg/1 Ml Inj) 2 mg IV Q4H PRN PRN Reason: Pain, Moderate (4-6) Ondansetron HCl (Ondansetron 4 Mg/2 Ml Inj) 4 mg IV Q8H PRN PRN Reason: Nausea And Vomiting Sodium Chloride (Sodium Chloride 0.9% 10 Ml Flush Syringe) 10 ml IV BID TUTU Sodium Chloride (Sodium Chloride 0.9% 10 Ml Flush Syringe) 10 ml IV PRN PRN PRN Reason: LINE FLUSH Review of Systems All systems: negative Cardiovascular: shortness of breath, dyspnea on exertion Respiratory: shortness of breath, dyspnea on exertion, other (Hard time breathing) Exam - Constitutional Vitals: Temp Pulse Resp BP Pulse Ox 102 H 32 H 100 09/01/21 00:45 09/01/21 00:45 09/01/21 00:45 General appearance: Present: mild distress - EENT Eyes: Present: PERRL ENT: hearing intact, clear oral mucosa - Neck Neck: Present: supple, normal ROM - Respiratory Respiratory effort: normal Respiratory: bilateral: diminished - Cardiovascular Heart Sounds: Present: S1 & S2. Absent: rub, click - Extremities Extremities: pulses symmetrical, No edema Peripheral Pulses: within normal limits - Abdominal General gastrointestinal: Present: soft, non-tender, non-distended, normal bowel sounds Female genitourinary: Present: normal - Integumentary Integumentary: Present: clear, warm, dry - Musculoskeletal Musculoskeletal: gait normal, strength equal bilaterally - Psychiatric Psychiatric: appropriate mood/affect, intact judgment & insight - Neurologic Neurologic: CNII-XII intact, moves all extremities Results - Labs CBC & Chem 7: 08/31/21 19:32 08/31/21 19:32 Labs: Laboratory Last Values WBC 10.9 K/mm3 (4.5-11.0) 08/31/21 19:32 RBC 4.28 M/mm3 (3.65-5.03) 08/31/21 19:32 Hgb 12.5 gm/dl (10.1-14.3) 08/31/21 19:32 Hct 39.9 % (30.3-42.9) 08/31/21 19:32 MCV 93 fl (79-97) 08/31/21 19:32 MCH 29 pg (28-32) 08/31/21 19:32 MCHC 31 % (30-34) 08/31/21 19:32 RDW 16.4 % (13.2-15.2) H 08/31/21 19:32 Plt Count 289 K/mm3 (140-440) 08/31/21 19:32 Lymph % (Auto) 14.5 % (13.4-35.0) 08/31/21 19:32 [place] % (Auto) 9.0 % (0.0-7.3) H 08/31/21 19:32 Eos % (Auto) 0.0 % (0.0-4.3) 08/31/21 19:32 Baso % (Auto) 0.3 % (0.0-1.8) 08/31/21 19:32 Lymph # (Auto) 1.6 K/mm3 (1.2-5.4) 08/31/21 19:32 [place] # (Auto) 1.0 K/mm3 (0.0-0.8) H 08/31/21 19:32 Eos # (Auto) 0.0 K/mm3 (0.0-0.4) 08/31/21 19:32 Baso # (Auto) 0.0 K/mm3 (0.0-0.1) 08/31/21 19:32 Seg Neutrophils % 76.2 % (40.0-70.0) H 08/31/21 19:32 Seg Neutrophils # 8.3 K/mm3 (1.8-7.7) H 08/31/21 19:32 D-Dimer 710.59 ng/mlDDU (0-234) H 08/31/21 19:32 ABG pH 7.240 pH Units (7.350-7.450) L 09/01/21 23:56 ABG pCO2 111.3 mm Hg 09/01/21 23:56 ABG pO2 198.0 mm Hg (80.0-90.0) H 09/01/21 23:56 ABG HCO3 46.6 mmol/L (20.0-26.0) H 09/01/21 23:56 ABG O2 Saturation 99.0 % (95.0-99.0) 09/01/21 23:56 ABG O2 Content 16.8 (0.0-44) 09/01/21 23:56 ABG Base Excess 14.8 mmol/L (-2.0-3.0) H 09/01/21 23:56 ABG Hemoglobin 12.0 gm/dl (12.0-16.0) 09/01/21 23:56 ABG Carboxyhemoglobin 1.6 % (0.0-5.0) 09/01/21 23:56 ABG Methemoglobin 0.6 % (0.0-1.5) 09/01/21 23:56 Oxyhemoglobin 96.8 % (95.0-99.0) 09/01/21 23:56 FiO2 60 % 09/01/21 23:56 Sodium 140 mmol/L (137-145) 08/31/21 19:32 Potassium 4.2 mmol/L (3.6-5.0) 08/31/21 19:32 Chloride 92.7 mmol/L (98-107) L 08/31/21 19:32 Carbon Dioxide 36 mmol/L (22-30) H 08/31/21 19:32 Anion Gap 16 mmol/L 08/31/21 19:32 BUN 14 mg/dL (7-17) 08/31/21 19:32 Creatinine 0.4 mg/dL (0.6-1.2) L D 08/31/21 19:32 Estimated GFR > 60 ml/min 08/31/21 19:32 BUN/Creatinine Ratio 35 % 08/31/21 19:32 Glucose 249 mg/dL (65-100) H 08/31/21 19:32 Calcium 9.7 mg/dL (8.4-10.2) 08/31/21 19:32 Magnesium 2.10 mg/dL (1.7-2.3) 08/31/21 19:32 Total Bilirubin 0.20 mg/dL (0.1-1.2) 08/31/21 19:32 AST 18 units/L (5-40) 08/31/21 19:32 ALT 46 units/L (7-56) 08/31/21 19:32 Alkaline Phosphatase 68 units/L (35-129) 08/31/21 19:32 NT-Pro-B Natriuret Pep 524.1 pg/mL (0-450) H 08/31/21 19:32 Total Protein 6.5 g/dL (6.3-8.2) 08/31/21 19:32 Albumin 4.0 g/dL (3.9-5) 08/31/21 19:32 Albumin/Globulin Ratio 1.6 % 08/31/21 19:32 HCG, Qual Negative (Negative) 08/31/21 19:32 - Imaging and Cardiology Chest x-ray: report reviewed Assessment and Plan VTE prophylaxis?: Chemical Plan of care discussed with patient/family: Yes - Patient Problems (1) Acute hypercapnic respiratory failure Current Visit: Yes Status: Acute Plan to address problem: Admit the patient to the IMCU. Patient is on BiPAP. DuoNeb by nebulizer every 4 hours. Albuterol via nebulizer every 4 hours dexamethasone 6 mg IV daily. Rocephin 2 g IV daily and Zithromax 500 mg IV daily. Will consult pulmonary for evaluation. We will do the blood cultures sputum culture follow Covid inflammatory marker (2) Acute hypoxemic respiratory failure Current Visit: No Status: Acute Plan to address problem: Patient is on BiPAP. DuoNeb by nebulizer every 4 hours. Albuterol via nebulizer every 4 hours dexamethasone 6 mg IV daily. Rocephin 2 g IV daily and Zithromax 500 mg IV daily. Will consult pulmonary for evaluation. 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 DuoNeb by nebulizer every 4 hours. Albuterol via nebulizer every 4 hours dexamethasone 6 mg IV daily. Rocephin 2 g IV daily and Zithromax 500 mg IV daily. Will consult pulmonary for evaluation. We will do the blood cultures sputum culture follow Covid inflammatory marker (4) Suspected 2019 novel coronavirus infection Current Visit: No Status: Acute Plan to address problem: dexamethasone 6 mg IV daily. Rocephin 2 g IV daily and Zithromax 500 mg IV daily. We will do the blood cultures sputum culture .follow Covid inflammatory marker (5) [place] (generalized anxiety disorder) Current Visit: No Status: Chronic Plan to address problem: Xanax 1 mg p.o. twice daily as needed. We will continue the home medication (6) IDDM (insulin dependent diabetes mellitus) Current Visit: No Status: Chronic Plan to address problem: Accu-Chek before meals and at bedtime with Humalog coverage moderate dose. Diabetic education. Continue home medication (7) DVT prophylaxis Current Visit: No Status: Acute Plan to address problem: Heparin 5000 units subcu every 8 hours for DVT prophylaxis. Pepcid 20 mg p.o. twice daily for GI prophylaxis. Patient is a full code
[2021-09-01] MEDS: cefTRIAXone/NS 2 GM/100 ML 2 GM/100 ML BAG IV SCH (02:00)
[2021-09-01] MEDS: AZITHROMYCIN/NS 500 MG/250 ML 500 MG/250 ML BAG IV SCH (02:00)
[2021-09-01] MEDS: IPRATROPIUM/ALBUTEROL SULFATE 3 ML AMPUL.NEB IH SCH ×4 (02:00→20:34)
[2021-09-01] MEDS ORDERED: HEPARIN 5,000 UNIT/1 ML VIAL ONE (03:37)
[2021-09-01] MEDS: HEPARIN 5,000 UNIT/1 ML VIAL SUB-Q SCH ×3 (06:00→22:00)
--- NOTE | 2021-09-01 08:33 | Cat Scan Report ---
CTA CHEST WITH IV CONTRAST INDICATION: eval for PE. Dyspnea TECHNIQUE: Axial CT images were obtained through the chest after injection of 85 mL Omnipaque 350 IV contrast. 3 plane MIP reconstructions were produced. All CT scans at this location are performed using CT dose r eduction for ALARA by means of automated exposure control. COMPARISON: None available. FINDINGS: Pulmonary Arteries: No pulmonary emboli. Lungs: There are diffuse severe bilateral mixed interstitial and alveolar opacities. Trachea and Bronchi: No significant abnormality. Heart and Pericardium: No significant abnormality. Vasculature: No significant abnormality. Lymphatics: No lymphadenopathy. Additional Findings: None. Upper Abdomen: No acute findings. Skeletal Structures: No acute findings or aggressive bone lesions. IMPRESSION: 1. No CT evidence for pulmonary embolism. 2. Diffuse severe bilateral mixed interstitial and alveolar opacities. Signer Name: Luis Clark MD Signed: 09/01/2021 8:29 AM Workstation Name: [id number]
[2021-09-01] MEDS: INSULIN LISPRO 100 UNIT/ML SUB-Q SCH ×4 (09:24→22:00)
[2021-09-01] MEDS: FAMOTIDINE 20 MG TAB PO SCH ×2 (09:30→22:00)
[2021-09-01] MEDS ORDERED: dexAMETHasone 4 MG/ML VIAL IV SCH (10:00)
--- NOTE | 2021-09-01 10:29 | Progress Note ---
Assessment and Plan Assessment and plan: -- Acute on chronic hypoxemic respiratory failure Current Visit: No Status: Acute Severe respiratory failure, requiring BiPAP on admission Patient is on 10 L of nasal cannula oxygen/100% nonrebreather/BiPAP X-ray chest show moderate gaseous distention of the stomach severe diffuse bilateral parenchymal opacities that have not changed chest x-ray Patient is home oxygen dependent CTA chest; no CT evidence of PE, diffuse severe bilateral mixed interstitial and alveolar opacities CT head without contrast; there is 2 small 2 to 3 mm focus of calcification along the lateral left frontal lobe which appears to be incidental, Pulmonary recommended NG tube placement with intermittent suction -- [id number] syndrome Current Visit: Yes Status: Acute 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 Gomes PCR test is negative Continue supportive care -- IDDM (insulin dependent diabetes mellitus) Current Visit: Yes Status: Chronic Continue home insulin and coverage Check hemoglobin A1c --[place] (generalized anxiety disorder) Current Visit: Yes Status: Chronic Continue Xanax as necessary --DVT prophylaxis Current Visit: No Status: Acute On Lovenox and GI prophylaxis --Advance care planning Current Visit: Yes Status: Acute We will closely monitor the patient and adjust management as needed Wean oxygen back to 3 to 4 L, discharge when stable Plan of care reviewed with the patient and her nurse Prolonged patient care 3540 minutes Brief history and hospital course; 50-year-old female patient was admitted with COVID-19 pneumonia severe hypoxic hypercapnic respiratory failure had a prolonged stay in the hospital for 3 to 4 months and was discharged on 08/28/2021 on home oxygen and long-term steroids and other supportive care, patient again was admitted on the 16 stabilized and discharged on the 18 patient already has home oxygen and all the medications are needed. This morning patient was again admitted with acute hypoxic respiratory failure and altered level of consciousness, currently on BiPAP, chest x-ray gaseous distention of the stomach. Pulmonary following, patient also has generalized anxiety and Xanax. 09/01/2021; on intermittent BiPAP, chest x-ray gaseous distention of stomach recommend, NG tube placement intermittent suction and supportive care Disposition monitor closely wean will oxygen;, 2 -4 to 5 L nasal cannula, and discharge when stable. Patient already has home oxygen History Interval history: I have seen and examined the patient at the bedside in ER today patient's chart and medications reviewed Patient is severely hypoxemic On L nasal cannula oxygen/100% nonrebreather and intermittent BiPAP When I evaluated this morning patient is alert awake responding appropriately Vital signs reviewed Hospitalist Physical - Constitutional Vitals: Temp Pulse Resp BP Pulse Ox 97.9 F 103 H 28 H 117/55 99 09/01/21 09:35 09/01/21 09:35 09/01/21 09:35 09/01/21 09:35 09/01/21 09:35 General appearance: Present: mild distress, well-nourished, other (On BiPAP) - EENT Eyes: Present: PERRL, EOM intact - Neck Neck: Present: supple, normal ROM - Respiratory Respiratory effort: normal Respiratory: bilateral: diminished, rhonchi, negative: rales, wheezing - Cardiovascular Rhythm: regular Heart Sounds: Present: S1 & S2 - Extremities Extremities: no ischemia, No edema - Abdominal General gastrointestinal: soft, non-tender, non-distended, normal bowel sounds - Integumentary Integumentary: Present: clear, warm - Psychiatric Psychiatric: appropriate mood/affect, cooperative - Neurologic Neurologic: CNII-XII intact, moves all extremities Results - Labs CBC & Chem 7: 08/31/21 19:32 08/31/21 19:32 Labs: Laboratory Last Values WBC 10.9 K/mm3 (4.5-11.0) 08/31/21 19:32 RBC 4.28 M/mm3 (3.65-5.03) 08/31/21 19:32 Hgb 12.5 gm/dl (10.1-14.3) 08/31/21 19:32 Hct 39.9 % (30.3-42.9) 08/31/21 19:32 MCV 93 fl (79-97) 08/31/21 19:32 MCH 29 pg (28-32) 08/31/21 19:32 MCHC 31 % (30-34) 08/31/21 19:32 RDW 16.4 % (13.2-15.2) H 08/31/21 19:32 Plt Count 289 K/mm3 (140-440) 08/31/21 19:32 Lymph % (Auto) 14.5 % (13.4-35.0) 08/31/21 19:32 [place] % (Auto) 9.0 % (0.0-7.3) H 08/31/21 19:32 Eos % (Auto) 0.0 % (0.0-4.3) 08/31/21 19:32 Baso % (Auto) 0.3 % (0.0-1.8) 08/31/21 19:32 Lymph # (Auto) 1.6 K/mm3 (1.2-5.4) 08/31/21 19:32 [place] # (Auto) 1.0 K/mm3 (0.0-0.8) H 08/31/21 19:32 Eos # (Auto) 0.0 K/mm3 (0.0-0.4) 08/31/21 19:32 Baso # (Auto) 0.0 K/mm3 (0.0-0.1) 08/31/21 19:32 Seg Neutrophils % 76.2 % (40.0-70.0) H 08/31/21 19:32 Seg Neutrophils # 8.3 K/mm3 (1.8-7.7) H 08/31/21 19:32 D-Dimer 710.59 ng/mlDDU (0-234) H 08/31/21 19:32 ABG pH 7.240 pH Units (7.350-7.450) L 09/01/21 23:56 ABG pCO2 111.3 mm Hg 09/01/21 23:56 ABG pO2 198.0 mm Hg (80.0-90.0) H 09/01/21 23:56 ABG HCO3 46.6 mmol/L (20.0-26.0) H 09/01/21 23:56 ABG O2 Saturation 99.0 % (95.0-99.0) 09/01/21 23:56 ABG O2 Content 16.8 (0.0-44) 09/01/21 23:56 ABG Base Excess 14.8 mmol/L (-2.0-3.0) H 09/01/21 23:56 ABG Hemoglobin 12.0 gm/dl (12.0-16.0) 09/01/21 23:56 ABG Carboxyhemoglobin 1.6 % (0.0-5.0) 09/01/21 23:56 ABG Methemoglobin 0.6 % (0.0-1.5) 09/01/21 23:56 Oxyhemoglobin 96.8 % (95.0-99.0) 09/01/21 23:56 FiO2 60 % 09/01/21 23:56 Sodium 140 mmol/L (137-145) 08/31/21 19:32 Potassium 4.2 mmol/L (3.6-5.0) 08/31/21 19:32 Chloride 92.7 mmol/L (98-107) L 08/31/21 19:32 Carbon Dioxide 36 mmol/L (22-30) H 08/31/21 19:32 Anion Gap 16 mmol/L 08/31/21 19:32 BUN 14 mg/dL (7-17) 08/31/21 19:32 Creatinine 0.4 mg/dL (0.6-1.2) L D 08/31/21 19:32 Estimated GFR > 60 ml/min 08/31/21 19:32 BUN/Creatinine Ratio 35 % 08/31/21 19:32 Glucose 249 mg/dL (65-100) H 08/31/21 19:32 POC Glucose 106 mg/dL (70-105) H 09/01/21 09:24 Calcium 9.7 mg/dL (8.4-10.2) 08/31/21 19:32 Magnesium 2.10 mg/dL (1.7-2.3) 08/31/21 19:32 Total Bilirubin 0.20 mg/dL (0.1-1.2) 08/31/21 19:32 AST 18 units/L (5-40) 08/31/21 19:32 ALT 46 units/L (7-56) 08/31/21 19:32 Alkaline Phosphatase 68 units/L (35-129) 08/31/21 19:32 NT-Pro-B Natriuret Pep 524.1 pg/mL (0-450) H 08/31/21 19:32 Total Protein 6.5 g/dL (6.3-8.2) 08/31/21 19:32 Albumin 4.0 g/dL (3.9-5) 08/31/21 19:32 Albumin/Globulin Ratio 1.6 % 08/31/21 19:32 HCG, Qual Negative (Negative) 08/31/21 19:32 Active Medications - Current Medications Current Medications: Generic Name Dose Route Start Last Admin Trade Name Freq PRN Reason Stop Dose Admin Acetaminophen 650 mg 09/01/21 01:25 Acetaminophen 325 Mg Tab PO Q4H PRN Pain MILD(1-3)/Fever >100.5/[place] Albuterol 2.5 mg 09/01/21 01:25 Albuterol 2.5 Mg/3 Ml Nebu IH Q3HRT PRN Shortness Of Breath Albuterol/Ipratropium 1 ampul 09/01/21 02:00 09/01/21 02:00 Ipratropium/Albuterol Sulfate 3 Ml Ampul.Neb IH 1 ampul Q6HRT TUTU Administration Alprazolam 1 mg 09/01/21 01:38 Alprazolam 1 Mg Tab PO BID PRN Agitation Dexamethasone 6 mg 09/01/21 10:00 09/01/21 09:30 Dexamethasone 4 Mg/Ml Vial IV 6 mg DAILY TUTU Administration Dextrose 50 ml 09/01/21 01:25 Dextrose 50% In Water (25gm) 50 Ml Syringe IV Q30MIN PRN Hypoglycemia Protocol Famotidine 20 mg 09/01/21 10:00 09/01/21 09:30 Famotidine 20 Mg Tab PO 20 mg BID TUTU Administration Heparin Sodium (Porcine) 5,000 unit 09/01/21 06:00 09/01/21 06:00 Heparin 5,000 Unit/1 Ml Vial SUB-Q 5,000 unit Q8HR TUTU Administration Hydromorphone HCl 0.5 mg 09/01/21 01:25 Hydromorphone 1 Mg/1 Ml Inj IV Q3H PRN Pain , Severe (7-10) Ceftriaxone Sodium 2 gm in 100 mls @ 200 mls/hr 09/01/21 02:00 09/01/21 02:00 Rocephin/Ns 2 Gm/100 Ml IV 200 mls/hr Q24H TUTU Administration Protocol Azithromycin 500 mg in 250 mls @ 250 mls/hr 09/01/21 02:00 09/01/21 02:00 Zithromax/Ns IV 250 mls/hr Q24H TUTU Administration Protocol Insulin Human Lispro 0 unit 09/01/21 07:30 09/01/21 09:24 Insulin Lispro 100 Unit/Ml SUB-Q Not Given ACHS TUTU Protocol Morphine Sulfate 2 mg 09/01/21 01:25 Morphine 2 Mg/1 Ml Inj IV Q4H PRN Pain, Moderate (4-6) Ondansetron HCl 4 mg 09/01/21 01:25 Ondansetron 4 Mg/2 Ml Inj IV Q8H PRN Nausea And Vomiting Sodium Chloride 10 ml 09/01/21 10:00 09/01/21 09:30 Sodium Chloride 0.9% 10 Ml Flush Syringe IV 10 ml BID TUTU Administration Sodium Chloride 10 ml 09/01/21 01:25 Sodium Chloride 0.9% 10 Ml Flush Syringe IV PRN PRN LINE FLUSH
--- NOTE | 2021-09-01 12:03 | Electrocardiograph Report ---
[facility] Test Date: 2021-08-31 Test Time: 19:53:11 Pat Name: ROMULO CULLEN Department: Room: [place] [address] Gender: F [employer] Attendant: Seun : 1970 Requested By: DAMIEN MARINELLI Order Number: [id number] Reading MD: Orlando Russell Measurements Intervals [place] Rate: 107 P: 42 MS: 121 QRS: 88 QRSD: 90 T: 46 QT: 308 QTc: 412 Interpretive Statements Sinus tachycardia Right atrial enlargement Probable right ventricular hypertrophy Compared to ECG 08/29/2021 21:22:51 No significant changes Electronically Signed On 09-01-2021 12:03:20 EST by Orlando Russell
--- NOTE | 2021-09-01 12:03 | Event Note ---
Date: 09/01/21 Patient readmitted literally hours after discharge. Agonal breathing? Almost required intubation but then became arousable? CXR is essentially unchanged but abdomen shows dilated loops of bowel. Patient may have aspirated. Suggest the following: NG tube insertion Place on continuous suction Restraints if needed to keep NG tube in place Stop Dex and place back on Solumedrol 125q8 WIll give a dose of lasix now.
[2021-09-01] MEDS ORDERED: FUROSEMIDE 20 MG/2 ML INJ IV ONE ×2 (12:04→15:00)
[2021-09-01] MEDS: methylPREDNISolone Sod Succinate 125 MG/2 ML INJ IV SCH ×2 (14:16→22:00)
--- NOTE | 2021-09-01 15:26 | Cat Scan Report ---
CT head/brain wo con INDICATION / CLINICAL INFORMATION: 50 years Female; Persistent hypoxemia and altered mental state. TECHNIQUE: Routine CT head without contrast. All CT scans at this location are performed using CT dos e reduction for ALARA by means of automated exposure control. COMPARISON: None available. FINDINGS: BRAIN / INTRACRANIAL CONTENTS: The motion and positioning degrade the image quality. However, there i s a small 2 to 3 mm focus of calcification projected along the left frontal lobe which is nonspecific and may be vascular in origin. There is no significant surrounding edema or mass effect. The brain o therwise appears to demonstrate appropriate attenuation. The ventricular system is within normal limits in size and configuration. There is no clear CT eviden ce of acute intracranial hemorrhage or significant mass effect. ORBITS: No significant abnormality of visualized orbits. SINUSES / MASTOIDS: There is scattered opacification within the ethmoid, sphenoid and visualized righ t maxillary sinuses. Mild opacification with air-fluid levels also seen within the right mastoid air cells. CRANIOCERVICAL JUNCTION: No significant abnormality. ADDITIONAL FINDINGS: None. IMPRESSION: 1. There is a small 2 to 3 mm focus of calcification along the lateral left frontal lobe which appear s to be incidental. The CT otherwise appears unremarkable without evidence of acute intracranial proc ess. Signer Name: Edin Davidson MD Signed: 09/01/2021 3:22 PM Workstation Name: [id number]
[2021-09-02] MEDS: IPRATROPIUM/ALBUTEROL SULFATE 3 ML AMPUL.NEB IH SCH ×3 (02:00→15:39)
[2021-09-02] MEDS: cefTRIAXone/NS 2 GM/100 ML 2 GM/100 ML BAG IV SCH (02:47)
[2021-09-02] MEDS: AZITHROMYCIN/NS 500 MG/250 ML 500 MG/250 ML BAG IV SCH (03:22)
[2021-09-02] MEDS: HEPARIN 5,000 UNIT/1 ML VIAL SUB-Q SCH ×3 (06:18→22:16)
[2021-09-02] MEDS: methylPREDNISolone Sod Succinate 125 MG/2 ML INJ IV SCH ×3 (06:19→22:10)
[2021-09-02 07:39] LABS: Hemoglobin 12.9 gm/dl (10.1-14.3); Mean Corpuscular HGB Conc 31 % (30-34); Mean Corpuscular Volume 92 fl (79-97); Platelet Count 219 K/mm3 (140-440); Red Blood Count 4.46 M/mm3 (3.65-5.03); Red Cell Distribution Width 16.4 % (13.2-15.2)
[2021-09-02 07:57] LABS: Blood Urea Nitrogen 21 mg/dL (7-17); Calcium 9.3 mg/dL (8.4-10.2); Hemolysis Index 9
[2021-09-02 08:07] LABS: BUN/Creatinine Ratio 70
[2021-09-02] MEDS: INSULIN LISPRO 100 UNIT/ML SUB-Q SCH ×4 (09:00→22:16)
[2021-09-02] MEDS: FAMOTIDINE 20 MG TAB PO SCH ×2 (09:01→22:10)
[2021-09-02] MEDS ORDERED: LORazepam 2 MG/ML VIAL IV SCH (09:30)
--- NOTE | 2021-09-02 09:45 | XRay Report ---
CHEST 1 VIEW 09/02/2021 9:28 AM INDICATION / CLINICAL INFORMATION: NGT Placement. COMPARISON: 08/31/2021 FINDINGS: SUPPORT DEVICES: NG tube extends within the stomach HEART / MEDIASTINUM: No significant abnormality. LUNGS / PLEURA: Diffuse opacities in bilateral lungs persist however may be slightly improved No pneu mothorax. Signer Name: Yunior Roberson MD Signed: 09/02/2021 9:40 AM Workstation Name: [id number]
[2021-09-02 10:01] LABS: Total Cells Counted 100
[2021-09-02 10:02] LABS: Platelet Estimate Consistent w Auto; Poikilocytosis 1+; Stomatocytes 3+
--- NOTE | 2021-09-02 13:58 | Progress Note ---
Assessment and Plan 50 y/o female with chronic respiratory failure secondary to COVID with scarring residual from COVID High dose steroids Anxiety therapy Wean FiO2 as tolerated ABG not indicated currently as she is sleepy from IV ativan administered because she is NPO and could not get her xanax Subjective Date of service: 09/02/21 Interval history: Now on 25 liters and 40%. Asleep. Sat is 93. NG tube placed this am as ED could not get it yesterday. Head CT was normal. Objective Vital Signs - 12hr 09/02/21 09/02/21 09/02/21 02:01 03:01 03:56 Temperature Pulse Rate 100 H 98 H Pulse Rate [ Anterior Bilateral Throughout] Pulse Rate [ From Monitor] Respiratory 25 H 25 H Rate Respiratory Rate [Anterior Bilateral Throughout] Blood Pressure 122/76 124/81 O2 Sat by Pulse 98 96 96 Oximetry 09/02/21 09/02/21 09/02/21 04:01 05:01 06:00 Temperature Pulse Rate 98 H 100 H Pulse Rate [ Anterior Bilateral Throughout] Pulse Rate [ 105 H From Monitor] Respiratory 21 24 18 Rate Respiratory Rate [Anterior Bilateral Throughout] Blood Pressure 121/71 117/74 O2 Sat by Pulse 96 96 100 Oximetry 09/02/21 09/02/21 09/02/21 06:22 06:31 06:41 Temperature Pulse Rate 104 H 103 H 102 H Pulse Rate [ Anterior Bilateral Throughout] Pulse Rate [ From Monitor] Respiratory 28 H 26 H 24 Rate Respiratory Rate [Anterior Bilateral Throughout] Blood Pressure O2 Sat by Pulse 94 92 92 Oximetry 09/02/21 09/02/21 09/02/21 06:51 07:00 07:11 Temperature Pulse Rate 103 H 102 H 105 H Pulse Rate [ Anterior Bilateral Throughout] Pulse Rate [ From Monitor] Respiratory 23 24 23 Rate Respiratory Rate [Anterior Bilateral Throughout] Blood Pressure 127/79 127/79 O2 Sat by Pulse 92 92 91 Oximetry 09/02/21 09/02/21 09/02/21 07:21 07:31 07:41 Temperature Pulse Rate 102 H 103 H 103 H Pulse Rate [ Anterior Bilateral Throughout] Pulse Rate [ From Monitor] Respiratory 26 H 23 24 Rate Respiratory Rate [Anterior Bilateral Throughout] Blood Pressure 127/79 127/79 127/79 O2 Sat by Pulse 91 92 93 Oximetry 09/02/21 09/02/21 09/02/21 07:51 08:00 08:03 Temperature Pulse Rate 105 H 104 H Pulse Rate [ 103 H Anterior Bilateral Throughout] Pulse Rate [ 103 H From Monitor] Respiratory 27 H 23 Rate Respiratory 24 Rate [Anterior Bilateral Throughout] Blood Pressure 127/79 140/80 O2 Sat by Pulse 94 100 94 Oximetry 09/02/21 09/02/21 09/02/21 08:11 08:21 08:31 Temperature Pulse Rate 103 H 104 H Pulse Rate [ Anterior Bilateral Throughout] Pulse Rate [ From Monitor] Respiratory 27 H 29 H Rate Respiratory Rate [Anterior Bilateral Throughout] Blood Pressure 140/80 140/80 140/80 O2 Sat by Pulse 95 94 92 Oximetry 09/02/21 09/02/21 09/02/21 08:36 08:41 08:51 Temperature Pulse Rate 103 H 108 H 109 H Pulse Rate [ Anterior Bilateral Throughout] Pulse Rate [ From Monitor] Respiratory 28 H 28 H Rate Respiratory Rate [Anterior Bilateral Throughout] Blood Pressure 140/80 140/80 O2 Sat by Pulse 95 93 Oximetry 09/02/21 09/02/21 09/02/21 09:00 09:11 09:21 Temperature Pulse Rate 113 H 117 H 112 H Pulse Rate [ Anterior Bilateral Throughout] Pulse Rate [ From Monitor] Respiratory 30 H 28 H 29 H Rate Respiratory Rate [Anterior Bilateral Throughout] Blood Pressure 131/77 131/77 131/77 O2 Sat by Pulse 93 92 93 Oximetry 09/02/21 09/02/21 09/02/21 09:31 09:41 09:51 Temperature Pulse Rate 116 H 112 H 112 H Pulse Rate [ Anterior Bilateral Throughout] Pulse Rate [ From Monitor] Respiratory 32 H 27 H 27 H Rate Respiratory Rate [Anterior Bilateral Throughout] Blood Pressure 131/77 131/77 131/77 O2 Sat by Pulse 88 96 96 Oximetry 09/02/21 09/02/21 09/02/21 10:01 10:11 10:21 Temperature Pulse Rate 112 H 112 H 112 H Pulse Rate [ Anterior Bilateral Throughout] Pulse Rate [ From Monitor] Respiratory 29 H 28 H 28 H Rate Respiratory Rate [Anterior Bilateral Throughout] Blood Pressure 131/77 131/77 131/77 O2 Sat by Pulse 96 96 96 Oximetry 09/02/21 09/02/21 09/02/21 10:31 10:41 10:51 Temperature Pulse Rate 112 H 115 H 113 H Pulse Rate [ Anterior Bilateral Throughout] Pulse Rate [ From Monitor] Respiratory 25 H 41 H 28 H Rate Respiratory Rate [Anterior Bilateral Throughout] Blood Pressure 113/86 113/86 113/86 O2 Sat by Pulse 95 94 94 Oximetry 09/02/21 09/02/21 09/02/21 11:01 11:11 11:21 Temperature Pulse Rate 112 H 112 H 111 H Pulse Rate [ Anterior Bilateral Throughout] Pulse Rate [ From Monitor] Respiratory 28 H 25 H 26 H Rate Respiratory Rate [Anterior Bilateral Throughout] Blood Pressure 128/79 128/79 128/79 O2 Sat by Pulse 95 96 95 Oximetry 09/02/21 09/02/21 09/02/21 11:31 11:41 11:45 Temperature Pulse Rate 112 H 110 H Pulse Rate [ Anterior Bilateral Throughout] Pulse Rate [ 111 H From Monitor] Respiratory 23 22 24 Rate Respiratory Rate [Anterior Bilateral Throughout] Blood Pressure 128/79 128/79 O2 Sat by Pulse 94 94 100 Oximetry 09/02/21 09/02/21 09/02/21 11:47 11:51 12:00 Temperature 99 F Pulse Rate 111 H 113 H 111 H Pulse Rate [ Anterior Bilateral Throughout] Pulse Rate [ From Monitor] Respiratory 22 25 H Rate Respiratory Rate [Anterior Bilateral Throughout] Blood Pressure 128/79 136/80 O2 Sat by Pulse 81 L 92 Oximetry CBC and BMP: 09/02/21 07:22 09/02/21 07:22 ABG, PT/INR, D-dimer: ABG ABG pH 7.240 pH Units (7.350-7.450) L 09/01/21 23:56 ABG pCO2 111.3 mm Hg 09/01/21 23:56 ABG pO2 198.0 mm Hg (80.0-90.0) H 09/01/21 23:56 ABG O2 Saturation 99.0 % (95.0-99.0) 09/01/21 23:56 PT/INR, D-dimer D-Dimer 710.59 ng/mlDDU (0-234) H 08/31/21 19:32 Abnormal lab findings: Abnormal Labs 08/31/21 08/31/21 08/31/21 19:32 19:32 19:32 RDW 16.4 H [place] % (Auto) 9.0 H [place] # (Auto) 1.0 H Seg Neutrophils % 76.2 H Seg Neuts % (Manual) Lymphocytes % (Manual) Seg Neutrophils # 8.3 H Lymphocytes # (Manual) D-Dimer 710.59 H ABG pH ABG pO2 ABG HCO3 ABG O2 Saturation ABG Base Excess Chloride 92.7 L Carbon Dioxide 36 H BUN Creatinine 0.4 L D Glucose 249 H POC Glucose NT-Pro-B Natriuret Pep 08/31/21 08/31/21 09/01/21 19:32 21:05 09:24 RDW [place] % (Auto) [place] # (Auto) Seg Neutrophils % Seg Neuts % (Manual) Lymphocytes % (Manual) Seg Neutrophils # Lymphocytes # (Manual) D-Dimer ABG pH 7.244 L ABG pO2 307.7 H ABG HCO3 47.9 H ABG O2 Saturation 99.4 H ABG Base Excess 16.0 H Chloride Carbon Dioxide BUN Creatinine Glucose POC Glucose 106 H NT-Pro-B Natriuret Pep 524.1 H 09/01/21 09/01/21 09/01/21 13:39 16:22 23:56 RDW [place] % (Auto) [place] # (Auto) Seg Neutrophils % Seg Neuts % (Manual) Lymphocytes % (Manual) Seg Neutrophils # Lymphocytes # (Manual) D-Dimer ABG pH 7.240 L ABG pO2 198.0 H ABG HCO3 46.6 H ABG O2 Saturation ABG Base Excess 14.8 H Chloride Carbon Dioxide BUN Creatinine Glucose POC Glucose 154 H 188 H NT-Pro-B Natriuret Pep 09/02/21 09/02/21 09/02/21 01:49 07:22 07:22 RDW 16.4 H [place] % (Auto) [place] # (Auto) Seg Neutrophils % Seg Neuts % (Manual) 97.0 H Lymphocytes % (Manual) 2.0 L Seg Neutrophils # Lymphocytes # (Manual) 0.1 L D-Dimer ABG pH ABG pO2 ABG HCO3 ABG O2 Saturation ABG Base Excess Chloride 82.7 L Carbon Dioxide 41 H* BUN 21 H Creatinine 0.3 L Glucose 198 H POC Glucose 132 H NT-Pro-B Natriuret Pep 09/02/21 09/02/21 08:29 11:27 RDW [place] % (Auto) [place] # (Auto) Seg Neutrophils % Seg Neuts % (Manual) Lymphocytes % (Manual) Seg Neutrophils # Lymphocytes # (Manual) D-Dimer ABG pH ABG pO2 ABG HCO3 ABG O2 Saturation ABG Base Excess Chloride Carbon Dioxide BUN Creatinine Glucose POC Glucose 201 H 232 H NT-Pro-B Natriuret Pep
--- NOTE | 2021-09-02 19:58 | Progress Note ---
Assessment and Plan Assessment and plan: 50-year-old female patient was admitted with COVID-19 pneumonia severe hypoxic hypercapnic respiratory failure had a prolonged stay in the hospital for 3 to 4 months and was discharged on 08/28/2021 on home oxygen and long-term steroids and other supportive care, patient again was admitted on the stabilized and discharged on the patient already has home oxygen and all the medications are needed. Patient readmitted with acute hypoxic respiratory failure and altered level of consciousness, currently on BiPAP, chest x-ray gaseous distention of the stomach. Pulmonary following, patient also has generalized anxiety on Xanax. -- Acute on chronic hypoxemic respiratory failure currently with hypercapnia Current Visit: No Status: Acute Severe hypoxic and hypercapnic respiratory failure, requiring BiPAP on admission Patient was on 10 L of nasal cannula oxygen/100% nonrebreather/BiPAP, currently on high flow O2 30 to 40 L X-ray chest show moderate gaseous distention of the stomach severe diffuse bilateral chronic parenchymal opacities that have not changed chest x-ray Patient was recently discharged on on home 3 L oxygen CTA chest; no CT evidence of PE, diffuse severe bilateral mixed interstitial and alveolar opacities CT head without contrast; there is 2 small 2 to 3 mm focus of calcification along the lateral left frontal lobe which appears to be incidental, Patient is receiving currently high-dose Solu-Medrol therapy, per pulmonary Pulmonary recommended NG tube placement with intermittent suction for gastric distention -- [id number] syndrome Current Visit: Yes Status: Acute 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 Gomes PCR test is negative Continue supportive care -- IDDM (insulin dependent diabetes mellitus) Current Visit: Yes Status: Chronic Continue home insulin and coverage Check hemoglobin A1c --[place] (generalized anxiety disorder) Current Visit: Yes Status: Chronic Continue Xanax as necessary --DVT prophylaxis Current Visit: No Status: Acute On Lovenox and GI prophylaxis 09/01/2021; on intermittent BiPAP, chest x-ray gaseous distention of stomach recommend, NG tube placement intermittent suction and supportive care Disposition monitor closely wean will oxygen;, 2 -4 to 5 L nasal cannula, and discharge when stable. Patient already has home oxygen 09/02: Remains hypoxic and hypercapnic, somnolent post Ativan, on high flow O2 30 to 40 L, high-dose Solu-Medrol and NG tube for gastric distention. wean FiO2 as tolerated and BiPAP as needed for the hypercapnia, recheck ABG. Discussed with the pulmonary and nursing staff. History Interval history: Patient currently very somnolent after given Ativan for anxiety, on high flow oxygen and on high-dose Solu-Medrol per pulmonary. Afebrile. Hospitalist Physical - Constitutional Vitals: Temp Pulse Resp BP Pulse Ox 99 F 101 H 27 H 120/73 92 09/02/21 12:00 09/02/21 18:11 09/02/21 18:11 09/02/21 18:11 09/02/21 19:49 General appearance: Present: well-nourished, other (On high flow oxygen, s omnolent post Ativan) - EENT Eyes: Present: PERRL, EOM intact ENT: clear oral mucosa - Neck Neck: Present: supple - Respiratory Respiratory effort: labored Respiratory: bilateral: diminished (No significant wheezes at rest.) - Cardiovascular Rhythm: regular - Extremities Extremities: No edema - Abdominal General gastrointestinal: soft, non-tender, normal bowel sounds - Integumentary Integumentary: Absent: rash - Neurologic Neurologic: other (Somnolent after Ativan currently, ) Results - Labs CBC & Chem 7: 09/02/21 07:22 09/02/21 07:22 Labs: Laboratory Last Values WBC 6.5 K/mm3 (4.5-11.0) 09/02/21 07:22 RBC 4.46 M/mm3 (3.65-5.03) 09/02/21 07:22 Hgb 12.9 gm/dl (10.1-14.3) 09/02/21 07:22 Hct 41.0 % (30.3-42.9) 09/02/21 07:22 MCV 92 fl (79-97) 09/02/21 07:22 MCH 29 pg (28-32) 09/02/21 07:22 MCHC 31 % (30-34) 09/02/21 07:22 RDW 16.4 % (13.2-15.2) H 09/02/21 07:22 Plt Count 219 K/mm3 (140-440) 09/02/21 07:22 Lymph % (Auto) 14.5 % (13.4-35.0) 08/31/21 19:32 [place] % (Auto) 9.0 % (0.0-7.3) H 08/31/21 19:32 Eos % (Auto) 0.0 % (0.0-4.3) 08/31/21 19:32 Baso % (Auto) 0.3 % (0.0-1.8) 08/31/21 19:32 Lymph # (Auto) 1.6 K/mm3 (1.2-5.4) 08/31/21 19:32 [place] # (Auto) 1.0 K/mm3 (0.0-0.8) H 08/31/21 19:32 Eos # (Auto) 0.0 K/mm3 (0.0-0.4) 08/31/21 19:32 Baso # (Auto) 0.0 K/mm3 (0.0-0.1) 08/31/21 19:32 Add Manual Diff Complete 09/02/21 07:22 Total Counted 100 09/02/21 07:22 Seg Neutrophils % Engine Installer 09/02/21 07:22 Seg Neuts % (Manual) 97.0 % (40.0-70.0) H 09/02/21 07:22 Lymphocytes % (Manual) 2.0 % (13.4-35.0) L 09/02/21 07:22 Monocytes % (Manual) 1.0 % (0.0-7.3) 09/02/21 07:22 Nucleated RBC % Not Reportable 09/02/21 07:22 Seg Neutrophils # 8.3 K/mm3 (1.8-7.7) H 08/31/21 19:32 Seg Neutrophils # Man 6.3 K/mm3 (1.8-7.7) 09/02/21 07:22 Band Neutrophils # 0.0 K/mm3 09/02/21 07:22 Lymphocytes # (Manual) 0.1 K/mm3 (1.2-5.4) L 09/02/21 07:22 Abs React Lymphs (Man) 0.0 K/mm3 09/02/21 07:22 Monocytes # (Manual) 0.1 K/mm3 (0.0-0.8) 09/02/21 07:22 Eosinophils # (Manual) 0.0 K/mm3 (0.0-0.4) 09/02/21 07:22 Basophils # (Manual) 0.0 K/mm3 (0.0-0.1) 09/02/21 07:22 Metamyelocytes # 0.0 K/mm3 09/02/21 07:22 Myelocytes # 0.0 K/mm3 09/02/21 07:22 Promyelocytes # 0.0 K/mm3 09/02/21 07:22 Blast Cells # 0.0 K/mm3 09/02/21 07:22 WBC Morphology Not Reportable 09/02/21 07:22 Hypersegmented Neuts Not Reportable 09/02/21 07:22 Hyposegmented Neuts Not Reportable 09/02/21 07:22 Hypogranular Neuts Not Reportable 09/02/21 07:22 Smudge Cells Not Reportable 09/02/21 07:22 Toxic Granulation Not Reportable 09/02/21 07:22 Toxic Vacuolation Not Reportable 09/02/21 07:22 Dohle Bodies Not Reportable 09/02/21 07:22 Pelger-Huet Anomaly Not Reportable 09/02/21 07:22 Janelle Rods Not Reportable 09/02/21 07:22 Platelet Estimate Consistent w auto 09/02/21 07:22 Clumped Platelets Not Reportable 09/02/21 07:22 Plt Clumps, EDTA Not Reportable 09/02/21 07:22 Large Platelets Not Reportable 09/02/21 07:22 Giant Platelets Not Reportable 09/02/21 07:22 Platelet Satelliting Not Reportable 09/02/21 07:22 Plt Morphology Comment Not Reportable 09/02/21 07:22 RBC Morphology Not Reportable 09/02/21 07:22 Dimorphic RBCs Not Reportable 09/02/21 07:22 Polychromasia Not Reportable 09/02/21 07:22 Hypochromasia Not Reportable 09/02/21 07:22 Poikilocytosis 1+ 09/02/21 07:22 Anisocytosis Not Reportable 09/02/21 07:22 Microcytosis Not Reportable 09/02/21 07:22 Macrocytosis Not Reportable 09/02/21 07:22 Spherocytes Not Reportable 09/02/21 07:22 Pappenheimer Bodies Not Reportable 09/02/21 07:22 Sickle Cells Not Reportable 09/02/21 07:22 Target Cells Not Reportable 09/02/21 07:22 Tear Drop Cells Not Reportable 09/02/21 07:22 Ovalocytes Not Reportable 09/02/21 07:22 Stomatocytes 3+ 09/02/21 07:22 Helmet Cells Not Reportable 09/02/21 07:22 Ahuja-Tool Bodies Not Reportable 09/02/21 07:22 [place] Rings Not Reportable 09/02/21 07:22 [place] Cells Not Reportable 09/02/21 07:22 Bite Cells Not Reportable 09/02/21 07:22 Crenated Cell Not Reportable 09/02/21 07:22 Elliptocytes Not Reportable 09/02/21 07:22 Acanthocytes (Spur) Not Reportable 09/02/21 07:22 Rouleaux Not Reportable 09/02/21 07:22 Hemoglobin C Crystals Not Reportable 09/02/21 07:22 Schistocytes Not Reportable 09/02/21 07:22 Malaria parasites Not Reportable 09/02/21 07:22 Justin Bodies Not Reportable 09/02/21 07:22 Hem Pathologist Commnt No 09/02/21 07:22 D-Dimer 710.59 ng/mlDDU (0-234) H 08/31/21 19:32 ABG pH 7.240 pH Units (7.350-7.450) L 09/01/21 23:56 ABG pCO2 111.3 mm Hg 09/01/21 23:56 ABG pO2 198.0 mm Hg (80.0-90.0) H 09/01/21 23:56 ABG HCO3 46.6 mmol/L (20.0-26.0) H 09/01/21 23:56 ABG O2 Saturation 99.0 % (95.0-99.0) 09/01/21 23:56 ABG O2 Content 16.8 (0.0-44) 09/01/21 23:56 ABG Base Excess 14.8 mmol/L (-2.0-3.0) H 09/01/21 23:56 ABG Hemoglobin 12.0 gm/dl (12.0-16.0) 09/01/21 23:56 ABG Carboxyhemoglobin 1.6 % (0.0-5.0) 09/01/21 23:56 ABG Methemoglobin 0.6 % (0.0-1.5) 09/01/21 23:56 Oxyhemoglobin 96.8 % (95.0-99.0) 09/01/21 23:56 FiO2 60 % 09/01/21 23:56 Sodium 142 mmol/L (137-145) 09/02/21 07:22 Potassium 4.1 mmol/L (3.6-5.0) 09/02/21 07:22 Chloride 82.7 mmol/L (98-107) L 09/02/21 07:22 Carbon Dioxide 41 mmol/L (22-30) H* 09/02/21 07:22 Anion Gap 22 mmol/L 09/02/21 07:22 BUN 21 mg/dL (7-17) H 09/02/21 07:22 Creatinine 0.3 mg/dL (0.6-1.2) L 09/02/21 07:22 Estimated GFR > 60 ml/min 09/02/21 07:22 BUN/Creatinine Ratio 70 % 09/02/21 07:22 Glucose 198 mg/dL (65-100) H 09/02/21 07:22 POC Glucose 118 mg/dL (70-105) H 09/02/21 16:59 Calcium 9.3 mg/dL (8.4-10.2) 09/02/21 07:22 Magnesium 2.10 mg/dL (1.7-2.3) 08/31/21 19:32 Total Bilirubin 0.20 mg/dL (0.1-1.2) 08/31/21 19:32 AST 18 units/L (5-40) 08/31/21 19:32 ALT 46 units/L (7-56) 08/31/21 19:32 Alkaline Phosphatase 68 units/L (35-129) 08/31/21 19:32 NT-Pro-B Natriuret Pep 524.1 pg/mL (0-450) H 08/31/21 19:32 Total Protein 6.5 g/dL (6.3-8.2) 08/31/21 19:32 Albumin 4.0 g/dL (3.9-5) 08/31/21 19:32 Albumin/Globulin Ratio 1.6 % 08/31/21 19:32 HCG, Qual Negative (Negative) 08/31/21 19:32 Amos/IV: Voiding Method Indwelling Catheter Active Medications - Current Medications Current Medications: Generic Name Dose Route Start Last Admin Trade Name Freq PRN Reason Stop Dose Admin Acetaminophen 650 mg 09/01/21 01:25 Acetaminophen 325 Mg Tab PO Q4H PRN Pain MILD(1-3)/Fever >100.5/[place] Albuterol 2.5 mg 09/01/21 01:25 Albuterol 2.5 Mg/3 Ml Nebu IH Q3HRT PRN Shortness Of Breath Alprazolam 1 mg 09/01/21 01:38 Alprazolam 1 Mg Tab PO BID PRN Agitation Dextrose 50 ml 09/01/21 01:25 Dextrose 50% In Water (25gm) 50 Ml Syringe IV Q30MIN PRN Hypoglycemia Protocol Famotidine 20 mg 09/01/21 10:00 09/02/21 09:01 Famotidine 20 Mg Tab PO Not Given BID [facility] Heparin Sodium (Porcine) 5,000 unit 09/01/21 06:00 09/02/21 14:54 Heparin 5,000 Unit/1 Ml Vial SUB-Q 5,000 unit Q8HR [facility] Administration Hydromorphone HCl 0.5 mg 09/01/21 01:25 Hydromorphone 1 Mg/1 Ml Inj IV Q3H PRN Pain , Severe (7-10) Insulin Glargine 10 units 09/02/21 22:00 Insulin Glargine 100 Units/Ml SUB-Q QHS [facility] Insulin Human Lispro 0 unit 09/01/21 07:30 09/02/21 17:08 Insulin Lispro 100 Unit/Ml SUB-Q Not Given ACHS [facility] Protocol Methylprednisolone Sodium Succinate 125 mg 09/01/21 14:00 09/02/21 14:54 Methylprednisolone Sod Succinate 125 Mg/2 Ml Inj IV 125 mg Q8HR TUTU Administration Morphine Sulfate 2 mg 09/01/21 01:25 Morphine 2 Mg/1 Ml Inj IV Q4H PRN Pain, Moderate (4-6) Ondansetron HCl 4 mg 09/01/21 01:25 Ondansetron 4 Mg/2 Ml Inj IV Q8H PRN Nausea And Vomiting Sodium Chloride 10 ml 09/01/21 10:00 09/02/21 09:01 Sodium Chloride 0.9% 10 Ml Flush Syringe IV 10 ml BID TUTU Administration Sodium Chloride 10 ml 09/01/21 01:25 09/01/21 14:16 Sodium Chloride 0.9% 10 Ml Flush Syringe IV 10 ml PRN PRN Administration LINE FLUSH Nutrition/Malnutrition Assess - Dietary Evaluation Nutrition/Malnutrition Findings: Nutrition Notes Start: 09/01/21 12:25 Freq: Status: Active Protocol: Document 09/01/21 12:25 (Rec: 09/01/21 12:30 MK [id number]) Nutrition Notes Need for Assessment generated from: MD Order,Education Initial or Follow up Brief Note Current Diagnosis Diabetes,Respiratory Failure Other Pertinent Diagnosis hypercapnia Current Diet NPO Height 5 ft 2 in Weight 54.431 kg [place] Body Weight (kg) 50.00 BMI 21.9 Weight Status Appropriate Subjective/Other Information MD consult for DM diet education. Unable to contact pt. Pt with NGT on LIS for possible aspiration. Pt was d/ c and readmitted hours after. Pt was eating well, per chart. Burn Absent Trauma Absent Current % PO Negligible Minimum of two criteria No Nutrition Intervention Follow-Up By: 09/03/21 Additional Comments F/u: diet advancement and diet education needs
[2021-09-02] MEDS: INSULIN GLARGINE 100 UNITS/ML SUB-Q SCH (22:10)
[2021-09-03] MEDS: HEPARIN 5,000 UNIT/1 ML VIAL SUB-Q SCH ×3 (06:50→23:04)
[2021-09-03] MEDS: methylPREDNISolone Sod Succinate 125 MG/2 ML INJ IV SCH ×3 (06:52→23:06)
[2021-09-03 07:07] LABS: Hematocrit 42.7 % (30.3-42.9); Hemoglobin 13.4 gm/dl (10.1-14.3); Mean Corpuscular HGB Conc 31 % (30-34); Mean Corpuscular Volume 91 fl (79-97); Platelet Count 252 K/mm3 (140-440); Red Blood Count 4.67 M/mm3 (3.65-5.03); Red Cell Distribution Width 16.5 % (13.2-15.2)
[2021-09-03 07:25] LABS: Alanine Aminotransferase 71 units/L (7-56); Albumin 3.8 g/dL (3.9-5); Blood Urea Nitrogen 27 mg/dL (7-17); Calcium 10.4 mg/dL (8.4-10.2); Hemolysis Index 149
[2021-09-03 07:27] LABS: BUN/Creatinine Ratio 135
[2021-09-03] MEDS: INSULIN LISPRO 100 UNIT/ML SUB-Q SCH ×4 (08:07→23:04)
[2021-09-03 10:36] LABS: Total Cells Counted 100
[2021-09-03 10:38] LABS: Platelet Estimate Consistent w Auto; Poikilocytosis 1+; RBC Morphology Normal; Stomatocytes 3+
[2021-09-03] MEDS: FAMOTIDINE 20 MG TAB PO SCH ×2 (10:39→23:06)
--- NOTE | 2021-09-03 12:02 | XRay Report ---
XR abdomen 1V ap INDICATION: Follow up of dilated bowel. COMPARISON: None available. FINDINGS: There is no significant bowel distention. NG tube tip projects over the body the stomach. RUQ surgica l clips suggest previous cholecystectomy. Signer Name: Luis Clark MD Signed: 09/03/2021 11:58 AM Workstation Name: [id number]
--- NOTE | 2021-09-03 14:11 | Progress Note ---
Assessment and Plan 50-year-old female patient was admitted with COVID-19 pneumonia severe hypoxic hypercapnic respiratory failure had a prolonged stay in the hospital for 3 to 4 months and was discharged on 08/28/2021 on home oxygen and long-term st eroids and other supportive care, patient again was admitted on the stabilized and discharged on the . patient already has home oxygen and all the medications are needed. Patient readmitted 09/01/21 with acute hypoxic respiratory failure and altered level of consciousness, s/p BiPAP, chest x-ray gaseous distention of the stomach. Pulmonary following, patient also has generalized anxiety on Xanax. 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 Gomes PCR test is negative Severe hypoxic and hypercapnic respiratory failure, required BiPAP on admission Patient was on 10 L of nasal cannula oxygen/100% nonrebreather/BiPAP, currently on high flow O2 25 L X-ray chest show moderate gaseous distention of the stomach severe diffuse bilateral chronic parenchymal opacities that have not changed chest x-ray Patient was recently discharged on on home 3 L oxygen CTA chest; no CT evidence of PE, diffuse severe bilateral mixed interstitial and alveolar opacities CT head without contrast; there is 2 small 2 to 3 mm focus of calcification along the lateral left frontal lobe which appears to be incidental, Patient is receiving currently high-dose Solu-Medrol therapy, per pulmonary --Abdominal distention with ileus Pulmonary recommended NG tube placement with intermittent suction for gastric distention Repeat abdomen x-ray showed no gaseous distention, will initiate clear liquid diet -- IDDM (insulin dependent diabetes mellitus) Continue home insulin and coverage Follow hemoglobin A1c, SSI as needed --[place] (generalized anxiety disorder) Continue Xanax as necessary --DVT prophylaxis On Lovenox and GI prophylaxis Daily clinical course: 09/01/2021; on intermittent BiPAP, chest x-ray gaseous distention of stomach recommend, NG tube placement intermittent suction and supportive care Disposition monitor closely wean will oxygen;, 2 -4 to 5 L nasal cannula, and discharge when stable. Patient already has home oxygen 09/02: Remains hypoxic and hypercapnic, somnolent post Ativan, on high flow O2 30 to 40 L, high-dose Solu-Medrol and NG tube for gastric distention. wean FiO2 as tolerated and BiPAP as needed for the hypercapnia, recheck ABG. Discussed with the pulmonary and nursing staff. 09/03: Off BiPAP this morning, continue to follow serum glucose, patient on high-dose steroid, continue high flow O2 and wean off as tolerated. Repeat abdominal x-ray showed non significant normal bowel gas pattern. Will initiate on clear liquid diet, will monitor off NG tube. Subjective Date of service: 09/03/21 Interval history: Patient seen and examined. Medical records and medication list reviewed. No acute event overnight noted by the RN. Patient complains of difficulty breathing even on minimal exertion. Patient on high flow O2 Discussed plan of care at bedside with patient's RN and CM . Objective - Exam Narrative Exam: GENERAL: well-developed and well-nourished female lying on bed appeared to be in moderate discomfort. HEENT: Normocephalic. Atraumatic. No conjunctival congestion or icterus. Patient has moist mucous membranes. NECK: Supple. Trachea midline. CHEST/LUNGS: Diminished breath sound bilaterally. No wheezes crackles or rhonchi. Patient on high flow O2 HEART/CARDIOVASCULAR: Regular in rate and rhythm. S1 and S2 positive. ABDOMEN: Abdomen is soft, nontender. Patient has normal bowel sounds. SKIN: There is no rash. Warm and dry. NEURO: No focal motor deficit. Follows command. MUSCULOSKELETAL: No joint effusion or tenderness. EXTRIMITY: No edema, no cyanosis or clubbing. PSYCH: Cooperative but appears anxious. - Constitutional Vitals: Vital Signs - 12hr 09/03/21 09/03/21 09/03/21 03:00 03:05 04:00 Temperature Pulse Rate 111 H 111 H 112 H Pulse Rate [ 112 H From Monitor] Respiratory 23 23 Rate Blood Pressure 130/81 134/78 O2 Sat by Pulse 93 89 Oximetry 09/03/21 09/03/21 09/03/21 05:00 06:00 07:00 Temperature 98.0 F Pulse Rate 112 H 107 H 108 H Pulse Rate [ From Monitor] Respiratory 36 H 30 H 34 H Rate Blood Pressure 147/92 128/79 130/82 O2 Sat by Pulse 91 93 93 Oximetry 09/03/21 09/03/21 09/03/21 07:46 08:00 08:57 Temperature Pulse Rate 105 H 108 H Pulse Rate [ 105 H From Monitor] Respiratory 31 H Rate Blood Pressure 139/84 O2 Sat by Pulse 93 94 Oximetry 09/03/21 09/03/21 09/03/21 09:00 10:00 11:00 Temperature Pulse Rate 107 H 111 H 113 H Pulse Rate [ From Monitor] Respiratory 31 H 27 H 32 H Rate Blood Pressure 138/90 138/90 142/90 O2 Sat by Pulse 93 94 94 Oximetry 09/03/21 09/03/21 09/03/21 12:00 13:00 14:00 Temperature 100.5 F H Pulse Rate 116 H 109 H 117 H Pulse Rate [ 119 H From Monitor] Respiratory 35 H 31 H 31 H Rate Blood Pressure 137/95 135/94 132/92 O2 Sat by Pulse 97 Oximetry - Labs CBC & Chem 7: 09/08/21 04:31 09/09/21 07:50 Labs: Abnormal lab results 09/02/21 09/02/21 09/03/21 Range/Units 16:59 22:08 06:05 RDW 16.5 H (13.2-15.2) % Seg Neuts % (Manual) 94.0 H (40.0-70.0) % Lymphocytes % (Manual) 3.0 L (13.4-35.0) % Lymphocytes # (Manual) 0.2 L (1.2-5.4) K/mm3 Chloride (98-107) mmol/L Carbon Dioxide (22-30) mmol/L BUN (7-17) mg/dL Creatinine (0.6-1.2) mg/dL Glucose (65-100) mg/dL POC Glucose 118 H 241 H (70-105) mg/dL Calcium (8.4-10.2) mg/dL ALT (7-56) units/L Albumin (3.9-5) g/dL 09/03/21 09/03/21 09/03/21 Range/Units 06:05 07:53 11:37 RDW (13.2-15.2) % Seg Neuts % (Manual) (40.0-70.0) % Lymphocytes % (Manual) (13.4-35.0) % Lymphocytes # (Manual) (1.2-5.4) K/mm3 Chloride 79.3 L (98-107) mmol/L Carbon Dioxide 52 H* D (22-30) mmol/L BUN 27 H (7-17) mg/dL Creatinine 0.2 L (0.6-1.2) mg/dL Glucose 228 H (65-100) mg/dL POC Glucose 241 H 202 H (70-105) mg/dL Calcium 10.4 H (8.4-10.2) mg/dL ALT 71 H (7-56) units/L Albumin 3.8 L (3.9-5) g/dL
[2021-09-03] MEDS: INSULIN GLARGINE 100 UNITS/ML SUB-Q SCH (23:05)
[2021-09-04] MEDS: methylPREDNISolone Sod Succinate 125 MG/2 ML INJ IV SCH ×3 (05:50→22:21)
[2021-09-04] MEDS: HEPARIN 5,000 UNIT/1 ML VIAL SUB-Q SCH ×3 (05:50→22:19)
[2021-09-04] MEDS: INSULIN LISPRO 100 UNIT/ML SUB-Q SCH ×4 (09:00→22:00)
[2021-09-04] MEDS: FAMOTIDINE 20 MG TAB PO SCH ×2 (09:01→22:19)
--- NOTE | 2021-09-04 12:19 | Progress Note ---
Assessment and Plan 50 y/o female with chronic respiratory failure secondary to COVID with scarring residual from COVID 09/04/21: Will start to taper steroids today. Continue to wean FiO2 as tolerated. Anxiety control. High dose steroids Anxiety therapy Wean FiO2 as tolerated ABG not indicated currently as she is sleepy from IV ativan administered because she is NPO and could not get her xanax Subjective Date of service: 09/04/21 Interval history: no acute events. Down to 25 and 40%. Sat is 95 Objective Vital Signs - 12hr 09/04/21 09/04/21 09/04/21 01:00 02:00 03:00 Temperature 97.4 F L Pulse Rate 92 H 88 87 Pulse Rate [ From Monitor] Respiratory 28 H 26 H 23 Rate Blood Pressure 125/81 113/74 108/76 O2 Sat by Pulse 94 Oximetry 09/04/21 09/04/21 09/04/21 04:00 05:00 06:00 Temperature 97.5 F L Pulse Rate 88 91 H 87 Pulse Rate [ 87 From Monitor] Respiratory 26 H 26 H 27 H Rate Blood Pressure 119/76 116/77 120/79 O2 Sat by Pulse 95 97 Oximetry CBC and BMP: 09/03/21 06:05 09/03/21 06:05 ABG, PT/INR, D-dimer: ABG ABG pH 7.240 pH Units (7.350-7.450) L 09/01/21 23:56 ABG pCO2 111.3 mm Hg 09/01/21 23:56 ABG pO2 198.0 mm Hg (80.0-90.0) H 09/01/21 23:56 ABG O2 Saturation 99.0 % (95.0-99.0) 09/01/21 23:56 PT/INR, D-dimer D-Dimer 710.59 ng/mlDDU (0-234) H 08/31/21 19:32 Abnormal lab findings: Abnormal Labs 08/31/21 08/31/21 08/31/21 19:32 19:32 19:32 RDW 16.4 H Harney % (Auto) 9.0 H Har[place] # (Auto) 1.0 H Seg Neutrophils % 76.2 H Seg Neuts % (Manual) Lymphocytes % (Manual) Seg Neutrophils # 8.3 H Lymphocytes # (Manual) D-Dimer 710.59 H ABG pH ABG pO2 ABG HCO3 ABG O2 Saturation ABG Base Excess Chloride 92.7 L Carbon Dioxide 36 H BUN Creatinine 0.4 L D Glucose 249 H POC Glucose Calcium ALT NT-Pro-B Natriuret Pep Albumin 08/31/21 08/31/21 09/01/21 19:32 21:05 09:24 RDW [place] % (Auto) Har[place] # (Auto) Seg Neutrophils % Seg Neuts % (Manual) Lymphocytes % (Manual) Seg Neutrophils # Lymphocytes # (Manual) D-Dimer ABG pH 7.244 L ABG pO2 307.7 H ABG HCO3 47.9 H ABG O2 Saturation 99.4 H ABG Base Excess 16.0 H Chloride Carbon Dioxide BUN Creatinine Glucose POC Glucose 106 H Calcium ALT NT-Pro-B Natriuret Pep 524.1 H Albumin 09/01/21 09/01/21 09/01/21 13:39 16:22 23:56 RDW [place] % (Auto) Har[place] # (Auto) Seg Neutrophils % Seg Neuts % (Manual) Lymphocytes % (Manual) Seg Neutrophils # Lymphocytes # (Manual) D-Dimer ABG pH 7.240 L ABG pO2 198.0 H ABG HCO3 46.6 H ABG O2 Saturation ABG Base Excess 14.8 H Chloride Carbon Dioxide BUN Creatinine Glucose POC Glucose 154 H 188 H Calcium ALT NT-Pro-B Natriuret Pep Albumin 09/02/21 09/02/21 09/02/21 01:49 07:22 07:22 RDW 16.4 H [place] % (Auto) [place] # (Auto) Seg Neutrophils % Seg Neuts % (Manual) 97.0 H Lymphocytes % (Manual) 2.0 L Seg Neutrophils # Lymphocytes # (Manual) 0.1 L D-Dimer ABG pH ABG pO2 ABG HCO3 ABG O2 Saturation ABG Base Excess Chloride 82.7 L Carbon Dioxide 41 H* BUN 21 H Creatinine 0.3 L Glucose 198 H POC Glucose 132 H Calcium ALT NT-Pro-B Natriuret Pep Albumin 09/02/21 09/02/21 09/02/21 08:29 11:27 16:59 RDW [place] % (Auto) [place] # (Auto) Seg Neutrophils % Seg Neuts % (Manual) Lymphocytes % (Manual) Seg Neutrophils # Lymphocytes # (Manual) D-Dimer ABG pH ABG pO2 ABG HCO3 ABG O2 Saturation ABG Base Excess Chloride Carbon Dioxide BUN Creatinine Glucose POC Glucose 201 H 232 H 118 H Calcium ALT NT-Pro-B Natriuret Pep Albumin 09/02/21 09/03/21 09/03/21 22:08 06:05 06:05 RDW 16.5 H [place] % (Auto) [place] # (Auto) Seg Neutrophils % Seg Neuts % (Manual) 94.0 H Lymphocytes % (Manual) 3.0 L Seg Neutrophils # Lymphocytes # (Manual) 0.2 L D-Dimer ABG pH ABG pO2 ABG HCO3 ABG O2 Saturation ABG Base Excess Chloride 79.3 L Carbon Dioxide 52 H* D BUN 27 H Creatinine 0.2 L Glucose 228 H POC Glucose 241 H Calcium 10.4 H ALT 71 H NT-Pro-B Natriuret Pep Albumin 3.8 L 09/03/21 09/03/21 09/03/21 07:53 11:37 15:52 RDW [place] % (Auto) [place] # (Auto) Seg Neutrophils % Seg Neuts % (Manual) Lymphocytes % (Manual) Seg Neutrophils # Lymphocytes # (Manual) D-Dimer ABG pH ABG pO2 ABG HCO3 ABG O2 Saturation ABG Base Excess Chloride Carbon Dioxide BUN Creatinine Glucose POC Glucose 241 H 202 H 284 H Calcium ALT NT-Pro-B Natriuret Pep Albumin 09/03/21 09/04/21 09/04/21 22:07 08:33 11:16 RDW [place] % (Auto) [place] # (Auto) Seg Neutrophils % Seg Neuts % (Manual) Lymphocytes % (Manual) Seg Neutrophils # Lymphocytes # (Manual) D-Dimer ABG pH ABG pO2 ABG HCO3 ABG O2 Saturation ABG Base Excess Chloride Carbon Dioxide BUN Creatinine Glucose POC Glucose 311 H 232 H 356 H Calcium ALT NT-Pro-B Natriuret Pep Albumin
--- NOTE | 2021-09-04 17:20 | Progress Note ---
Assessment and Plan 50-year-old female patient was admitted with COVID-19 pneumonia severe hypoxic hypercapnic respiratory failure had a prolonged stay in the hospital for 3 to 4 months and was discharged on 08/28/2021 on home oxygen and long-term st eroids and other supportive care, patient again was admitted on the stabilized and discharged on the . patient already has home oxygen and all the medications are needed. Patient readmitted 09/01/21 with acute hypoxic respiratory failure and altered level of consciousness, s/p BiPAP, chest x-ray gaseous distention of the stomach. Pulmonary following, patient also has generalized anxiety on Xanax. 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 Gomes PCR test is negative Severe hypoxic and hypercapnic respiratory failure, required BiPAP on admission Patient was on 10 L of nasal cannula oxygen/100% nonrebreather/BiPAP, currently on high flow O2 25 L X-ray chest show moderate gaseous distention of the stomach severe diffuse bilateral chronic parenchymal opacities that have not changed chest x-ray Patient was recently discharged on on home 3 L oxygen CTA chest; no CT evidence of PE, diffuse severe bilateral mixed interstitial and alveolar opacities CT head without contrast; there is 2 small 2 to 3 mm focus of calcification along the lateral left frontal lobe which appears to be incidental, Patient is receiving currently high-dose Solu-Medrol therapy, per pulmonary --Abdominal distention with ileus Pulmonary recommended NG tube placement with intermittent suction for gastric distention Repeat abdomen x-ray 09/03 showed no gaseous distention, now tolerating diet -- IDDM (insulin dependent diabetes mellitus) Continue home insulin and coverage Follow hemoglobin A1c, SSI as needed --[place] (generalized anxiety disorder) Continue Xanax as necessary --DVT prophylaxis On Lovenox and GI prophylaxis Daily clinical course: 09/01/2021; on intermittent BiPAP, chest x-ray gaseous distention of stomach recommend, NG tube placement intermittent suction and supportive care Disposition monitor closely wean will oxygen;, 2 -4 to 5 L nasal cannula, and discharge when stable. Patient already has home oxygen 09/02: Remains hypoxic and hypercapnic, somnolent post Ativan, on high flow O2 30 to 40 L, high-dose Solu-Medrol and NG tube for gastric distention. wean FiO2 as tolerated and BiPAP as needed for the hypercapnia, recheck ABG. Discussed with the pulmonary and nursing staff. 09/03: Off BiPAP this morning, continue to follow serum glucose, patient on high-dose steroid, continue high flow O2 and wean off as tolerated. Repeat abdominal x-ray showed non significant normal bowel gas pattern. Will initiate on clear liquid diet, will monitor off NG tube. 09/04; continue to follow clinically, empiric steroid, wean off O2 as tolerated, patient remains on high flow O2. Will advance diet as tolerated. Continue to monitor serum blood glucose and adjust insulin doses accordingly. Subjective Date of service: 09/04/21 Interval history: Patient seen and examined. Medical records and medication list reviewed. No acute event overnight noted by the RN. Patient complains of difficulty breathing even on minimal exertion. Patient on high flow O2, tolerating diet Discussed plan of care at bedside with patient's RN and CM . Objective - Exam Narrative Exam: GENERAL: well-developed and well-nourished female lying on bed appeared to be in moderate discomfort. HEENT: Normocephalic. Atraumatic. No conjunctival congestion or icterus. Patient has moist mucous membranes. NECK: Supple. Trachea midline. CHEST/LUNGS: Diminished breath sound bilaterally. No wheezes crackles or rhonchi. Patient on high flow O2 HEART/CARDIOVASCULAR: Regular in rate and rhythm. S1 and S2 positive. ABDOMEN: Abdomen is soft, nontender. Patient has normal bowel sounds. SKIN: There is no rash. Warm and dry. NEURO: No focal motor deficit. Follows command. MUSCULOSKELETAL: No joint effusion or tenderness. EXTRIMITY: No edema, no cyanosis or clubbing. PSYCH: Cooperative but appears anxious. - Constitutional Vitals: Vital Signs - 12hr 09/04/21 09/04/21 09/04/21 06:00 07:00 08:00 Temperature 97.5 F L Pulse Rate 87 83 86 Pulse Rate [ 97 H From Monitor] Respiratory 27 H 21 22 Rate Blood Pressure 120/79 119/79 135/85 O2 Sat by Pulse 97 97 98 Oximetry 09/04/21 09/04/21 09/04/21 09:00 10:00 11:00 Temperature 97.7 F Pulse Rate 105 H 93 H 98 H Pulse Rate [ From Monitor] Respiratory 35 H 26 H 24 Rate Blood Pressure 127/81 121/81 131/84 O2 Sat by Pulse 94 94 Oximetry 09/04/21 09/04/21 12:00 12:39 Temperature Pulse Rate 96 H Pulse Rate [ 101 H From Monitor] Respiratory 22 Rate Blood Pressure 133/85 O2 Sat by Pulse 99 95 Oximetry - Labs CBC & Chem 7: 09/08/21 04:31 09/09/21 07:50 Labs: Abnormal lab results 09/03/21 09/04/21 09/04/21 Range/Units 22:07 08:33 11:16 POC Glucose 311 H 232 H 356 H (70-105) mg/dL 09/04/21 Range/Units 17:10 POC Glucose 328 H (70-105) mg/dL
[2021-09-04] MEDS: INSULIN GLARGINE 100 UNITS/ML SUB-Q SCH (22:00)
[2021-09-04] MEDS: ALPRAZolam 1 MG TAB PO PRN (22:19)
[2021-09-05] MEDS: methylPREDNISolone Sod Succinate 125 MG/2 ML INJ IV SCH ×3 (06:20→22:32)
[2021-09-05] MEDS: HEPARIN 5,000 UNIT/1 ML VIAL SUB-Q SCH ×3 (06:22→22:30)
[2021-09-05] MEDS: INSULIN LISPRO 100 UNIT/ML SUB-Q SCH ×4 (12:55→22:30)
[2021-09-05] MEDS: FAMOTIDINE 20 MG TAB PO SCH ×2 (12:59→22:32)
[2021-09-05 14:02] LABS: Hematocrit 42.2 % (30.3-42.9); Hemoglobin 13.6 gm/dl (10.1-14.3); Mean Corpuscular HGB Conc 32 % (30-34); Mean Corpuscular Volume 90 fl (79-97); Platelet Count 186 K/mm3 (140-440); Red Blood Count 4.71 M/mm3 (3.65-5.03); Red Cell Distribution Width 17.1 % (13.2-15.2)
[2021-09-05 14:45] LABS: Blood Urea Nitrogen 16 mg/dL (7-17); Calcium 9.6 mg/dL (8.4-10.2); Hemolysis Index 17
[2021-09-05 14:54] LABS: BUN/Creatinine Ratio 53
--- NOTE | 2021-09-05 16:42 | Progress Note ---
Assessment and Plan 50-year-old female patient was admitted with COVID-19 pneumonia severe hypoxic hypercapnic respiratory failure had a prolonged stay in the hospital for 3 to 4 months and was discharged on 08/28/2021 on home oxygen and long-term st eroids and other supportive care, patient again was admitted on the stabilized and discharged on the . patient already has home oxygen and all the medications are needed. Patient readmitted 09/01/21 with acute hypoxic respiratory failure and altered level of consciousness, s/p BiPAP, chest x-ray gaseous distention of the stomach. Pulmonary following, patient also has generalized anxiety on Xanax. 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 Gomes PCR test is negative Severe hypoxic and hypercapnic respiratory failure, required BiPAP on admission Patient was on 10 L of nasal cannula oxygen/100% nonrebreather/BiPAP, currently on high flow O2 25 L X-ray chest show moderate gaseous distention of the stomach severe diffuse bilateral chronic parenchymal opacities that have not changed chest x-ray Patient was recently discharged on on home 3 L oxygen CTA chest; no CT evidence of PE, diffuse severe bilateral mixed interstitial and alveolar opacities CT head without contrast; there is 2 small 2 to 3 mm focus of calcification along the lateral left frontal lobe which appears to be incidental, Patient is receiving currently high-dose Solu-Medrol therapy, per pulmonary --Abdominal distention with ileus Pulmonary recommended NG tube placement with intermittent suction for gastric distention Repeat abdomen x-ray 09/03 showed no gaseous distention, now tolerating diet -- IDDM (insulin dependent diabetes mellitus) Continue home insulin and coverage Follow hemoglobin A1c, SSI as needed --[place] (generalized anxiety disorder) Continue Xanax as necessary --DVT prophylaxis On Lovenox and GI prophylaxis Daily clinical course: 09/01/2021; on intermittent BiPAP, chest x-ray gaseous distention of stomach recommend, NG tube placement intermittent suction and supportive care Disposition monitor closely wean will oxygen;, 2 -4 to 5 L nasal cannula, and discharge when stable. Patient already has home oxygen 09/02: Remains hypoxic and hypercapnic, somnolent post Ativan, on high flow O2 30 to 40 L, high-dose Solu-Medrol and NG tube for gastric distention. wean FiO2 as tolerated and BiPAP as needed for the hypercapnia, recheck ABG. Discussed with the pulmonary and nursing staff. 09/03: Off BiPAP this morning, continue to follow serum glucose, patient on high-dose steroid, continue high flow O2 and wean off as tolerated. Repeat abdominal x-ray showed non significant normal bowel gas pattern. Will initiate on clear liquid diet, will monitor off NG tube. 09/04; continue to follow clinically, empiric steroid, wean off O2 as tolerated, patient remains on high flow O2. Will advance diet as tolerated. Continue to monitor serum blood glucose and adjust insulin doses accordingly. 09/05: Follow clinically, consistent carb diet, high-dose empiric steroid, wean off O2 as tolerated. Transfer out of intermediate care to [facility] with telemetry. Subjective Date of service: 09/05/21 Interval history: Patient seen and examined. Medical records and medication list reviewed. No acute event overnight noted by the RN. Patient complains of difficulty breathing even on minimal exertion. Patient on high flow O2, tolerating diet Discussed plan of care at bedside with patient's RN and CM . Objective - Exam Narrative Exam: GENERAL: well-developed and well-nourished female lying on bed appeared to be in moderate discomfort. HEENT: Normocephalic. Atraumatic. No conjunctival congestion or icterus. Patient has moist mucous membranes. NECK: Supple. Trachea midline. CHEST/LUNGS: Diminished breath sound bilaterally. No wheezes crackles or rhonchi. Patient on high flow O2 HEART/CARDIOVASCULAR: Regular in rate and rhythm. S1 and S2 positive. ABDOMEN: Abdomen is soft, nontender. Patient has normal bowel sounds. SKIN: There is no rash. Warm and dry. NEURO: No focal motor deficit. Follows command. MUSCULOSKELETAL: No joint effusion or tenderness. EXTRIMITY: No edema, no cyanosis or clubbing. PSYCH: Cooperative but appears anxious. - Labs CBC & Chem 7: 09/08/21 04:31 09/09/21 07:50 Labs: Abnormal lab results 09/04/21 09/04/21 09/05/21 Range/Units 17:10 23:05 08:08 RDW (13.2-15.2) % Potassium (3.6-5.0) mmol/L Chloride (98-107) mmol/L Carbon Dioxide (22-30) mmol/L Creatinine (0.6-1.2) mg/dL Glucose (65-100) mg/dL POC Glucose 328 H 150 H 342 H (70-105) mg/dL 09/05/21 09/05/21 09/05/21 Range/Units 11:04 13:23 13:23 RDW 17.1 H (13.2-15.2) % Potassium 2.6 L* D (3.6-5.0) mmol/L Chloride 74.4 L (98-107) mmol/L Carbon Dioxide 46 H* (22-30) mmol/L Creatinine 0.3 L (0.6-1.2) mg/dL Glucose 389 H (65-100) mg/dL POC Glucose 395 H (70-105) mg/dL 09/05/21 Range/Units 16:22 RDW (13.2-15.2) % Potassium (3.6-5.0) mmol/L Chloride (98-107) mmol/L Carbon Dioxide (22-30) mmol/L Creatinine (0.6-1.2) mg/dL Glucose (65-100) mg/dL POC Glucose 195 H (70-105) mg/dL
[2021-09-05] MEDS ORDERED: POTASSIUM CHLORIDE ER 20 MEQ TAB PO ONE (19:38)
[2021-09-05] MEDS: POTASSIUM CHLORIDE 10 MEQ 10 MEQ/100 ML BAG IV SCH ×3 (21:04→23:52)
[2021-09-05] MEDS: INSULIN GLARGINE 100 UNITS/ML SUB-Q SCH (22:31)
[2021-09-05] MEDS: ALPRAZolam 1 MG TAB PO PRN (22:32)
[2021-09-06] MEDS: HEPARIN 5,000 UNIT/1 ML VIAL SUB-Q SCH ×3 (05:41→22:45)
[2021-09-06] MEDS: methylPREDNISolone Sod Succinate 125 MG/2 ML INJ IV SCH ×4 (05:42→22:47)
[2021-09-06] MEDS: INSULIN LISPRO 100 UNIT/ML SUB-Q SCH ×4 (09:35→22:45)
[2021-09-06] MEDS: ALPRAZolam 1 MG TAB PO PRN ×2 (09:36→22:54)
[2021-09-06] MEDS: FAMOTIDINE 20 MG TAB PO SCH ×2 (09:36→22:47)
[2021-09-06 11:37] LABS: Blood Urea Nitrogen 13 mg/dL (7-17); Calcium 9.1 mg/dL (8.4-10.2); Hemolysis Index 17
[2021-09-06 11:42] LABS: BUN/Creatinine Ratio 43
--- NOTE | 2021-09-06 13:56 | Progress Note ---
Assessment and Plan 50-year-old female patient was admitted with COVID-19 pneumonia severe hypoxic hypercapnic respiratory failure had a prolonged stay in the hospital for 3 to 4 months and was discharged on 08/28/2021 on home oxygen and long-term st eroids and other supportive care, patient again was admitted on the stabilized and discharged on the . patient already has home oxygen and all the medications are needed. Patient readmitted 09/01/21 with acute hypoxic respiratory failure and altered level of consciousness, s/p BiPAP, chest x-ray gaseous distention of the stomach. Pulmonary following, patient also has generalized anxiety on Xanax. 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 Gomes PCR test is negative Severe hypoxic and hypercapnic respiratory failure, required BiPAP on admission Patient was on 10 L of nasal cannula oxygen/100% nonrebreather/BiPAP, currently on high flow O2 25 L X-ray chest show moderate gaseous distention of the stomach severe diffuse bilateral chronic parenchymal opacities that have not changed chest x-ray Patient was recently discharged on on home 3 L oxygen CTA chest; no CT evidence of PE, diffuse severe bilateral mixed interstitial and alveolar opacities CT head without contrast; there is 2 small 2 to 3 mm focus of calcification along the lateral left frontal lobe which appears to be incidental, Patient is receiving currently high-dose Solu-Medrol therapy, per pulmonary --Abdominal distention with ileus Pulmonary recommended NG tube placement with intermittent suction for gastric distention Repeat abdomen x-ray 09/03 showed no gaseous distention, now tolerating diet -- IDDM (insulin dependent diabetes mellitus) Continue home insulin and coverage Follow hemoglobin A1c, SSI as needed --[place] (generalized anxiety disorder) Continue Xanax as necessary --DVT prophylaxis On Lovenox and GI prophylaxis Daily clinical course: 09/01/2021; on intermittent BiPAP, chest x-ray gaseous distention of stomach recommend, NG tube placement intermittent suction and supportive care Disposition monitor closely wean will oxygen;, 2 -4 to 5 L nasal cannula, and discharge when stable. Patient already has home oxygen 09/02: Remains hypoxic and hypercapnic, somnolent post Ativan, on high flow O2 30 to 40 L, high-dose Solu-Medrol and NG tube for gastric distention. wean FiO2 as tolerated and BiPAP as needed for the hypercapnia, recheck ABG. Discussed with the pulmonary and nursing staff. 09/03: Off BiPAP this morning, continue to follow serum glucose, patient on high-dose steroid, continue high flow O2 and wean off as tolerated. Repeat abdominal x-ray showed non significant normal bowel gas pattern. Will initiate on clear liquid diet, will monitor off NG tube. 09/04; continue to follow clinically, empiric steroid, wean off O2 as tolerated, patient remains on high flow O2. Will advance diet as tolerated. Continue to monitor serum blood glucose and adjust insulin doses accordingly. 09/05: Follow clinically, consistent carb diet, high-dose empiric steroid, wean off O2 as tolerated. Transfer out of intermediate care to [facility] with telemetry. 09/06: Remains on high flow O2 25 L, continue to provide supportive care, wean off O2 as tolerated, adjust serum blood glucose with insulin, tolerating consistent carb diet. Subjective Date of service: 09/06/21 Interval history: Patient seen and examined. Medical records and medication list reviewed. No acute event overnight noted by the RN. Patient complains of difficulty breathing even on minimal exertion. Patient on high flow O2, tolerating diet Discussed plan of care at bedside with patient's RN and CM . Objective - Exam Narrative Exam: GENERAL: well-developed and well-nourished female lying on bed appeared to be in moderate discomfort. HEENT: Normocephalic. Atraumatic. No conjunctival congestion or icterus. Patient has moist mucous membranes. NECK: Supple. Trachea midline. CHEST/LUNGS: Diminished breath sound bilaterally. No wheezes crackles or rhonchi. Patient on high flow O2 HEART/CARDIOVASCULAR: Regular in rate and rhythm. S1 and S2 positive. ABDOMEN: Abdomen is soft, nontender. Patient has normal bowel sounds. SKIN: There is no rash. Warm and dry. NEURO: No focal motor deficit. Follows command. MUSCULOSKELETAL: No joint effusion or tenderness. EXTRIMITY: No edema, no cyanosis or clubbing. PSYCH: Cooperative but appears anxious. - Constitutional Vitals: Vital Signs - 12hr 09/06/21 09/06/21 09/06/21 04:31 04:48 08:00 Temperature 97.7 F Pulse Rate 77 Respiratory 19 Rate Blood Pressure 116/74 Blood Pressure [Left] O2 Sat by Pulse 99 96 95 Oximetry 09/06/21 09/06/21 09/06/21 10:00 11:20 11:21 Temperature 97.9 F Pulse Rate 94 H 91 H Respiratory 18 Rate Blood Pressure Blood Pressure 119/80 [Left] O2 Sat by Pulse 92 92 92 Oximetry - Labs CBC & Chem 7: 09/08/21 04:31 09/09/21 07:50 Labs: Abnormal lab results 09/05/21 09/05/21 09/05/21 Range/Units 13:23 13:23 16:22 RDW 17.1 H (13.2-15.2) % Sodium (137-145) mmol/L Potassium 2.6 L* D (3.6-5.0) mmol/L Chloride 74.4 L (98-107) mmol/L Carbon Dioxide 46 H* (22-30) mmol/L Creatinine 0.3 L (0.6-1.2) mg/dL Glucose 389 H (65-100) mg/dL POC Glucose 195 H (70-105) mg/dL 09/05/21 09/06/21 09/06/21 Range/Units 21:09 08:02 11:00 RDW (13.2-15.2) % Sodium 136 L (137-145) mmol/L Potassium (3.6-5.0) mmol/L Chloride 78.3 L (98-107) mmol/L Carbon Dioxide 47 H* (22-30) mmol/L Creatinine 0.3 L (0.6-1.2) mg/dL Glucose 354 H (65-100) mg/dL POC Glucose 243 H 119 H (70-105) mg/dL 09/06/21 Range/Units 11:19 RDW (13.2-15.2) % Sodium (137-145) mmol/L Potassium (3.6-5.0) mmol/L Chloride (98-107) mmol/L Carbon Dioxide (22-30) mmol/L Creatinine (0.6-1.2) mg/dL Glucose (65-100) mg/dL POC Glucose 309 H (70-105) mg/dL
--- NOTE | 2021-09-06 14:03 | Progress Note ---
Assessment and Plan 50 y/o female with chronic respiratory failure secondary to COVID with scarring residual from COVID 09/06/21: Will drop steroids to 60 q8 starting now. 09/04/21: Will start to taper steroids today. Continue to wean FiO2 as tolerated. Anxiety control. High dose steroids Anxiety therapy Wean FiO2 as tolerated ABG not indicated currently as she is sleepy from IV ativan administered because she is NPO and could not get her xanax Subjective Date of service: 09/06/21 Interval history: Down to 20 and 40. Good sats. Objective Vital Signs - 12hr 09/06/21 09/06/21 09/06/21 04:31 04:48 08:00 Temperature 97.7 F Pulse Rate 77 Respiratory 19 Rate Blood Pressure 116/74 Blood Pressure [Left] O2 Sat by Pulse 99 96 95 Oximetry 09/06/21 09/06/21 09/06/21 10:00 11:20 11:21 Temperature 97.9 F Pulse Rate 94 H 91 H Respiratory 18 Rate Blood Pressure Blood Pressure 119/80 [Left] O2 Sat by Pulse 92 92 92 Oximetry CBC and BMP: 09/05/21 13:23 09/06/21 11:00 ABG, PT/INR, D-dimer: ABG ABG pH 7.240 pH Units (7.350-7.450) L 09/01/21 23:56 ABG pCO2 111.3 mm Hg 09/01/21 23:56 ABG pO2 198.0 mm Hg (80.0-90.0) H 09/01/21 23:56 ABG O2 Saturation 99.0 % (95.0-99.0) 09/01/21 23:56 PT/INR, D-dimer D-Dimer 710.59 ng/mlDDU (0-234) H 08/31/21 19:32 Abnormal lab findings: Abnormal Labs 08/31/21 08/31/21 08/31/21 19:32 19:32 19:32 RDW 16.4 H Riley % (Auto) 9.0 H Riley # (Auto) 1.0 H Seg Neutrophils % 76.2 H Seg Neuts % (Manual) Lymphocytes % (Manual) Seg Neutrophils # 8.3 H Lymphocytes # (Manual) D-Dimer 710.59 H ABG pH ABG pO2 ABG HCO3 ABG O2 Saturation ABG Base Excess Sodium Potassium Chloride 92.7 L Carbon Dioxide 36 H BUN Creatinine 0.4 L D Glucose 249 H POC Glucose Calcium ALT NT-Pro-B Natriuret Pep Albumin 08/31/21 08/31/21 09/01/21 19:32 21:05 09:24 RDW Riley % (Auto) Riley # (Auto) Seg Neutrophils % Seg Neuts % (Manual) Lymphocytes % (Manual) Seg Neutrophils # Lymphocytes # (Manual) D-Dimer ABG pH 7.244 L ABG pO2 307.7 H ABG HCO3 47.9 H ABG O2 Saturation 99.4 H ABG Base Excess 16.0 H Sodium Potassium Chloride Carbon Dioxide BUN Creatinine Glucose POC Glucose 106 H Calcium ALT NT-Pro-B Natriuret Pep 524.1 H Albumin 09/01/21 09/01/21 09/01/21 13:39 16:22 23:56 RDW Riley % (Auto) Riley # (Auto) Seg Neutrophils % Seg Neuts % (Manual) Lymphocytes % (Manual) Seg Neutrophils # Lymphocytes # (Manual) D-Dimer ABG pH 7.240 L ABG pO2 198.0 H ABG HCO3 46.6 H ABG O2 Saturation ABG Base Excess 14.8 H Sodium Potassium Chloride Carbon Dioxide BUN Creatinine Glucose POC Glucose 154 H 188 H Calcium ALT NT-Pro-B Natriuret Pep Albumin 09/02/21 09/02/21 09/02/21 01:49 07:22 07:22 RDW 16.4 H Riley % (Auto) Riley # (Auto) Seg Neutrophils % Seg Neuts % (Manual) 97.0 H Lymphocytes % (Manual) 2.0 L Seg Neutrophils # Lymphocytes # (Manual) 0.1 L D-Dimer ABG pH ABG pO2 ABG HCO3 ABG O2 Saturation ABG Base Excess Sodium Potassium Chloride 82.7 L Carbon Dioxide 41 H* BUN 21 H Creatinine 0.3 L Glucose 198 H POC Glucose 132 H Calcium ALT NT-Pro-B Natriuret Pep Albumin 09/02/21 09/02/21 09/02/21 08:29 11:27 16:59 RDW Riley % (Auto) Riley # (Auto) Seg Neutrophils % Seg Neuts % (Manual) Lymphocytes % (Manual) Seg Neutrophils # Lymphocytes # (Manual) D-Dimer ABG pH ABG pO2 ABG HCO3 ABG O2 Saturation ABG Base Excess Sodium Potassium Chloride Carbon Dioxide BUN Creatinine Glucose POC Glucose 201 H 232 H 118 H Calcium ALT NT-Pro-B Natriuret Pep Albumin 09/02/21 09/03/21 09/03/21 22:08 06:05 06:05 RDW 16.5 H Riley % (Auto) Riley # (Auto) Seg Neutrophils % Seg Neuts % (Manual) 94.0 H Lymphocytes % (Manual) 3.0 L Seg Neutrophils # Lymphocytes # (Manual) 0.2 L D-Dimer ABG pH ABG pO2 ABG HCO3 ABG O2 Saturation ABG Base Excess Sodium Potassium Chloride 79.3 L Carbon Dioxide 52 H* D BUN 27 H Creatinine 0.2 L Glucose 228 H POC Glucose 241 H Calcium 10.4 H ALT 71 H NT-Pro-B Natriuret Pep Albumin 3.8 L 09/03/21 09/03/21 09/03/21 07:53 11:37 15:52 RDW Riley % (Auto) Riley # (Auto) Seg Neutrophils % Seg Neuts % (Manual) Lymphocytes % (Manual) Seg Neutrophils # Lymphocytes # (Manual) D-Dimer ABG pH ABG pO2 ABG HCO3 ABG O2 Saturation ABG Base Excess Sodium Potassium Chloride Carbon Dioxide BUN Creatinine Glucose POC Glucose 241 H 202 H 284 H Calcium ALT NT-Pro-B Natriuret Pep Albumin 09/03/21 09/04/21 09/04/21 22:07 08:33 11:16 RDW Riley % (Auto) Riley # (Auto) Seg Neutrophils % Seg Neuts % (Manual) Lymphocytes % (Manual) Seg Neutrophils # Lymphocytes # (Manual) D-Dimer ABG pH ABG pO2 ABG HCO3 ABG O2 Saturation ABG Base Excess Sodium Potassium Chloride Carbon Dioxide BUN Creatinine Glucose POC Glucose 311 H 232 H 356 H Calcium ALT NT-Pro-B Natriuret Pep Albumin 09/04/21 09/04/21 09/05/21 17:10 23:05 08:08 RDW Riley % (Auto) Riley # (Auto) Seg Neutrophils % Seg Neuts % (Manual) Lymphocytes % (Manual) Seg Neutrophils # Lymphocytes # (Manual) D-Dimer ABG pH ABG pO2 ABG HCO3 ABG O2 Saturation ABG Base Excess Sodium Potassium Chloride Carbon Dioxide BUN Creatinine Glucose POC Glucose 328 H 150 H 342 H Calcium ALT NT-Pro-B Natriuret Pep Albumin 09/05/21 09/05/2121 11:04 13:23 13:23 RDW 17.1 H Riley % (Auto) Riley # (Auto) Seg Neutrophils % Seg Neuts % (Manual) Lymphocytes % (Manual) Seg Neutrophils # Lymphocytes # (Manual) D-Dimer ABG pH ABG pO2 ABG HCO3 ABG O2 Saturation ABG Base Excess Sodium Potassium 2.6 L* D Chloride 74.4 L Carbon Dioxide 46 H* BUN Creatinine 0.3 L Glucose 389 H POC Glucose 395 H Calcium ALT NT-Pro-B Natriuret Pep Albumin 09/05/21 09/05/21 09/06/21 16:22 21:09 08:02 RDW Riley % (Auto) Riley # (Auto) Seg Neutrophils % Seg Neuts % (Manual) Lymphocytes % (Manual) Seg Neutrophils # Lymphocytes # (Manual) D-Dimer ABG pH ABG pO2 ABG HCO3 ABG O2 Saturation ABG Base Excess Sodium Potassium Chloride Carbon Dioxide BUN Creatinine Glucose POC Glucose 195 H 243 H 119 H Calcium ALT NT-Pro-B Natriuret Pep Albumin 09/06/21 09/06/21 11:00 11:19 RDW Riley % (Auto) Riley # (Auto) Seg Neutrophils % Seg Neuts % (Manual) Lymphocytes % (Manual) Seg Neutrophils # Lymphocytes # (Manual) D-Dimer ABG pH ABG pO2 ABG HCO3 ABG O2 Saturation ABG Base Excess Sodium 136 L Potassium Chloride 78.3 L Carbon Dioxide 47 H* BUN Creatinine 0.3 L Glucose 354 H POC Glucose 309 H Calcium ALT NT-Pro-B Natriuret Pep Albumin
[2021-09-06] MEDS: INSULIN GLARGINE 100 UNITS/ML SUB-Q SCH (22:45)
[2021-09-07] MEDS: methylPREDNISolone Sod Succinate 125 MG/2 ML INJ IV SCH ×3 (05:33→23:36)
[2021-09-07] MEDS: HEPARIN 5,000 UNIT/1 ML VIAL SUB-Q SCH ×3 (05:33→23:37)
[2021-09-07] MEDS: FAMOTIDINE 20 MG TAB PO SCH ×2 (10:39→23:37)
[2021-09-07] MEDS: INSULIN LISPRO 100 UNIT/ML SUB-Q SCH ×4 (10:39→23:37)
[2021-09-07] MEDS: ALPRAZolam 1 MG TAB PO PRN ×2 (10:50→23:36)
--- NOTE | 2021-09-07 13:00 | Progress Note ---
Assessment and Plan 50-year-old female patient was admitted with COVID-19 pneumonia severe hypoxic hypercapnic respiratory failure had a prolonged stay in the hospital for 3 to 4 months and was discharged on 08/28/2021 on home oxygen and long-term st eroids and other supportive care, patient again was admitted on the stabilized and discharged on the . patient already has home oxygen and all the medications are needed. Patient readmitted 09/01/21 with acute hypoxic respiratory failure and altered level of consciousness, s/p BiPAP, chest x-ray gaseous distention of the stomach. Pulmonary following, patient also has generalized anxiety on Xanax. 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 Gomes PCR test is negative Severe hypoxic and hypercapnic respiratory failure, required BiPAP on admission Patient was on 10 L of nasal cannula oxygen/100% nonrebreather/BiPAP, currently on high flow O2 25 L X-ray chest show moderate gaseous distention of the stomach severe diffuse bilateral chronic parenchymal opacities that have not changed chest x-ray Patient was recently discharged on on home 3 L oxygen CTA chest; no CT evidence of PE, diffuse severe bilateral mixed interstitial and alveolar opacities CT head without contrast; there is 2 small 2 to 3 mm focus of calcification along the lateral left frontal lobe which appears to be incidental, Patient is receiving currently high-dose Solu-Medrol therapy, per pulmonary --Abdominal distention with ileus Pulmonary recommended NG tube placement with intermittent suction for gastric distention Repeat abdomen x-ray 09/03 showed no gaseous distention, now tolerating diet -- IDDM (insulin dependent diabetes mellitus) Continue home insulin and coverage Follow hemoglobin A1c, SSI as needed --[place] (generalized anxiety disorder) Continue Xanax as necessary --Hypokalemia, continue to replete and monitor BMP --DVT prophylaxis On Lovenox and GI prophylaxis Daily clinical course: 09/01/2021; on intermittent BiPAP, chest x-ray gaseous distention of stomach recommend, NG tube placement intermittent suction and supportive care Disposition monitor closely wean will oxygen;, 2 -4 to 5 L nasal cannula, and discharge when stable. Patient already has home oxygen 09/02: Remains hypoxic and hypercapnic, somnolent post Ativan, on high flow O2 30 to 40 L, high-dose Solu-Medrol and NG tube for gastric distention. wean FiO2 as tolerated and BiPAP as needed for the hypercapnia, recheck ABG. Discussed with the pulmonary and nursing staff. 09/03: Off BiPAP this morning, continue to follow serum glucose, patient on high-dose steroid, continue high flow O2 and wean off as tolerated. Repeat abdominal x-ray showed non significant normal bowel gas pattern. Will initiate on clear liquid diet, will monitor off NG tube. 09/04; continue to follow clinically, empiric steroid, wean off O2 as tolerated, patient remains on high flow O2. Will advance diet as tolerated. Continue to monitor serum blood glucose and adjust insulin doses accordingly. 09/05: Follow clinically, consistent carb diet, high-dose empiric steroid, wean off O2 as tolerated. Transfer out of intermediate care to [facility] with telemetry. 09/06: Remains on high flow O2 25 L, continue to provide supportive care, wean off O2 as tolerated, adjust serum blood glucose with insulin, tolerating consistent carb diet. 09/07/21: Continue to replete electrolytes and monitor. Wean off O2 as tolerated, guarded prognosis, continue empiric steroid. Follow clinically. Subjective Date of service: 09/07/21 Interval history: Patient seen and examined. Medical records and medication list reviewed. No acute event overnight noted by the RN. Patient complains of difficulty breathing even on minimal exertion. Patient on high flow O2, tolerating diet Discussed plan of care at bedside with patient's RN and CM . Objective - Exam Narrative Exam: GENERAL: well-developed and well-nourished female lying on bed appeared to be in moderate discomfort. HEENT: Normocephalic. Atraumatic. No conjunctival congestion or icterus. Patient has moist mucous membranes. NECK: Supple. Trachea midline. CHEST/LUNGS: Diminished breath sound bilaterally. No wheezes crackles or rhonchi. Patient on high flow O2 HEART/CARDIOVASCULAR: Regular in rate and rhythm. S1 and S2 positive. ABDOMEN: Abdomen is soft, nontender. Patient has normal bowel sounds. SKIN: There is no rash. Warm and dry. NEURO: No focal motor deficit. Follows command. MUSCULOSKELETAL: No joint effusion or tenderness. EXTRIMITY: No edema, no cyanosis or clubbing. PSYCH: Cooperative but appears anxious. - Constitutional Vitals: Vital Signs - 12hr 09/07/21 09/07/21 09/07/21 02:24 03:23 04:35 Temperature 97.6 F Pulse Rate 94 H Respiratory 20 Rate Blood Pressure 113/70 O2 Sat by Pulse 96 95 94 Oximetry 09/07/21 09:04 Temperature Pulse Rate Respiratory Rate Blood Pressure O2 Sat by Pulse 95 Oximetry - Labs CBC & Chem 7: 09/08/21 04:31 09/09/21 07:50 Labs: Abnormal lab results 09/06/21 09/06/21 09/07/21 Range/Units 16:06 22:25 11:11 POC Glucose 381 H 217 H 442 H (70-105) mg/dL
[2021-09-07] MEDS: INSULIN GLARGINE 100 UNITS/ML SUB-Q SCH (23:38)
[2021-09-08] MEDS: ACETAMINOPHEN 325 MG TAB PO PRN (00:20)
[2021-09-08 05:21] LABS: Basophils # (Auto) 0.1 K/mm3 (0.0-0.1); Basophils % (Auto) 1.7 % (0.0-1.8); Eosinophils % (Auto) 0.3 % (0.0-4.3); Hematocrit 44.9 % (30.3-42.9); Hemoglobin 14.2 gm/dl (10.1-14.3); Lymphocytes % (Auto) 12.3 % (13.4-35.0); Mean Corpuscular HGB Conc 32 % (30-34); Mean Corpuscular Volume 90 fl (79-97); Monocytes # (Auto) 0.5 K/mm3 (0.0-0.8); Monocytes % (Auto) 6.6 % (0.0-7.3); Platelet Count 178 K/mm3 (140-440); Red Blood Count 4.99 M/mm3 (3.65-5.03); Red Cell Distribution Width 17.2 % (13.2-15.2)
[2021-09-08 05:33] LABS: Blood Urea Nitrogen 16 mg/dL (7-17); Calcium 9.7 mg/dL (8.4-10.2); Hemolysis Index 5
[2021-09-08] MEDS: HEPARIN 5,000 UNIT/1 ML VIAL SUB-Q SCH ×3 (05:38→22:59)
[2021-09-08] MEDS: methylPREDNISolone Sod Succinate 125 MG/2 ML INJ IV SCH ×3 (05:38→22:58)
[2021-09-08 05:41] LABS: BUN/Creatinine Ratio 80
[2021-09-08] MEDS ORDERED: POTASSIUM CHLORIDE ER 20 MEQ TAB PO ONE (07:02)
[2021-09-08] MEDS: FAMOTIDINE 20 MG TAB PO SCH ×2 (09:23→22:59)
[2021-09-08] MEDS: INSULIN LISPRO 100 UNIT/ML SUB-Q SCH ×4 (09:24→23:05)
[2021-09-08] MEDS: POTASSIUM CHLORIDE ER 20 MEQ TAB PO SCH (11:36)
[2021-09-08] MEDS: ALPRAZolam 1 MG TAB PO PRN ×2 (11:36→23:05)
--- NOTE | 2021-09-08 12:54 | Progress Note ---
Assessment and Plan 50-year-old female patient was admitted with COVID-19 pneumonia severe hypoxic hypercapnic respiratory failure had a prolonged stay in the hospital for 3 to 4 months and was discharged on 08/28/2021 on home oxygen and long-term st eroids and other supportive care, patient again was admitted on the stabilized and discharged on the . patient already has home oxygen and all the medications are needed. Patient readmitted 09/01/21 with acute hypoxic respiratory failure and altered level of consciousness, s/p BiPAP, chest x-ray gaseous distention of the stomach. Pulmonary following, patient also has generalized anxiety on Xanax. 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 Gomes PCR test is negative Severe hypoxic and hypercapnic respiratory failure, required BiPAP on admission Patient was on 10 L of nasal cannula oxygen/100% nonrebreather/BiPAP, currently on high flow O2 25 L X-ray chest show moderate gaseous distention of the stomach severe diffuse bilateral chronic parenchymal opacities that have not changed chest x-ray Patient was recently discharged on on home 3 L oxygen CTA chest; no CT evidence of PE, diffuse severe bilateral mixed interstitial and alveolar opacities CT head without contrast; there is 2 small 2 to 3 mm focus of calcification along the lateral left frontal lobe which appears to be incidental, Patient is receiving currently high-dose Solu-Medrol therapy, per pulmonary --Abdominal distention with ileus Pulmonary recommended NG tube placement with intermittent suction for gastric distention Repeat abdomen x-ray 09/03 showed no gaseous distention, now tolerating diet -- IDDM (insulin dependent diabetes mellitus) Continue home insulin and coverage Follow hemoglobin A1c, SSI as needed --[place] (generalized anxiety disorder) Continue Xanax as necessary --Hypokalemia, continue to replete and monitor BMP --DVT prophylaxis On Lovenox and GI prophylaxis Daily clinical course: 09/01/2021; on intermittent BiPAP, chest x-ray gaseous distention of stomach recommend, NG tube placement intermittent suction and supportive care Disposition monitor closely wean will oxygen;, 2 -4 to 5 L nasal cannula, and discharge when stable. Patient already has home oxygen 09/02: Remains hypoxic and hypercapnic, somnolent post Ativan, on high flow O2 30 to 40 L, high-dose Solu-Medrol and NG tube for gastric distention. wean FiO2 as tolerated and BiPAP as needed for the hypercapnia, recheck ABG. Discussed with the pulmonary and nursing staff. 09/03: Off BiPAP this morning, continue to follow serum glucose, patient on high-dose steroid, continue high flow O2 and wean off as tolerated. Repeat abdominal x-ray showed non significant normal bowel gas pattern. Will initiate on clear liquid diet, will monitor off NG tube. 09/04; continue to follow clinically, empiric steroid, wean off O2 as tolerated, patient remains on high flow O2. Will advance diet as tolerated. Continue to monitor serum blood glucose and adjust insulin doses accordingly. 09/05: Follow clinically, consistent carb diet, high-dose empiric steroid, wean off O2 as tolerated. Transfer out of intermediate care to [facility] with telemetry. 09/06: Remains on high flow O2 25 L, continue to provide supportive care, wean off O2 as tolerated, adjust serum blood glucose with insulin, tolerating consistent carb diet. 09/07/21: Continue to replete electrolytes and monitor. Wean off O2 as tolerated, guarded prognosis, continue empiric steroid. Follow clinically. 09/08/21; continue to replete and monitor potassium, wean off O2 as tolerated. Patient remains on 25 L high flow O2. Continue empiric steroid, follow clinically. Subjective Date of service: 09/08/21 Interval history: Patient seen and examined. Medical records and medication list reviewed. No acute event overnight noted by the RN. Patient complains of difficulty breathing even on minimal exertion. Patient on high flow O2, tolerating diet Discussed plan of care at bedside with patient's RN and CM . Objective - Exam Narrative Exam: GENERAL: well-developed and well-nourished female lying on bed appeared to be in moderate discomfort. HEENT: Normocephalic. Atraumatic. No conjunctival congestion or icterus. Patient has moist mucous membranes. NECK: Supple. Trachea midline. CHEST/LUNGS: Diminished breath sound bilaterally. No wheezes crackles or rhonchi. Patient on high flow O2 HEART/CARDIOVASCULAR: Regular in rate and rhythm. S1 and S2 positive. ABDOMEN: Abdomen is soft, nontender. Patient has normal bowel sounds. SKIN: There is no rash. Warm and dry. NEURO: No focal motor deficit. Follows command. MUSCULOSKELETAL: No joint effusion or tenderness. EXTRIMITY: No edema, no cyanosis or clubbing. PSYCH: Cooperative but appears anxious. - Constitutional Vitals: Vital Signs - 12hr 09/08/21 09/08/21 09/08/21 04:16 10:30 11:51 Temperature 97.2 F L 97.9 F Pulse Rate 77 106 H Respiratory 20 24 Rate Blood Pressure 102/59 117/77 O2 Sat by Pulse 96 95 90 Oximetry - Labs CBC & Chem 7: 09/08/21 04:31 09/09/21 07:50 Labs: Abnormal lab results 09/07/21 09/07/21 09/08/21 Range/Units 16:50 21:52 04:31 Hct 44.9 H (30.3-42.9) % RDW 17.2 H (13.2-15.2) % Lymph % (Auto) 12.3 L (13.4-35.0) % Lymph # (Auto) 1.0 L (1.2-5.4) K/mm3 Seg Neutrophils % 79.1 H (40.0-70.0) % Potassium (3.6-5.0) mmol/L Chloride (98-107) mmol/L Carbon Dioxide (22-30) mmol/L Creatinine (0.6-1.2) mg/dL Glucose (65-100) mg/dL POC Glucose 222 H 360 H (70-105) mg/dL 09/08/21 09/08/21 09/08/21 Range/Units 04:31 05:25 05:53 Hct (30.3-42.9) % RDW (13.2-15.2) % Lymph % (Auto) (13.4-35.0) % Lymph # (Auto) (1.2-5.4) K/mm3 Seg Neutrophils % (40.0-70.0) % Potassium 2.8 L* D (3.6-5.0) mmol/L Chloride 87.6 L (98-107) mmol/L Carbon Dioxide 45 H* (22-30) mmol/L Creatinine 0.2 L (0.6-1.2) mg/dL Glucose 46 L (65-100) mg/dL POC Glucose 39 L 64 L (70-105) mg/dL 12/26/21 Range/Units 11:50 Hct (30.3-42.9) % RDW (13.2-15.2) % Lymph % (Auto) (13.4-35.0) % Lymph # (Auto) (1.2-5.4) K/mm3 Seg Neutrophils % (40.0-70.0) % Potassium (3.6-5.0) mmol/L Chloride (98-107) mmol/L Carbon Dioxide (22-30) mmol/L Creatinine (0.6-1.2) mg/dL Glucose (65-100) mg/dL POC Glucose 280 H (70-105) mg/dL
--- NOTE | 2021-09-08 19:55 | Progress Note ---
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 Wean Fio2 for sats >885. 09/06/21: Will drop steroids to 60 q8 starting now. 09/04/21: Will start to taper steroids today. Continue to wean FiO2 as tolerated. Anxiety control. High dose steroids Anxiety therapy Wean FiO2 as tolerated ABG not indicated currently as she is sleepy from IV ativan administered because she is NPO and could not get her xanax Subjective Date of service: 09/08/21 Interval history: now on 25 and 35%. Good sats. Objective Vital Signs - 12hr 09/08/21 09/08/21 09/08/21 10:30 11:51 15:30 Temperature 97.9 F Pulse Rate 106 H Respiratory 24 Rate Blood Pressure 117/77 O2 Sat by Pulse 95 90 92 Oximetry 09/08/21 18:12 Temperature 97.9 F Pulse Rate 109 H Respiratory 24 Rate Blood Pressure 121/72 O2 Sat by Pulse 93 Oximetry CBC and BMP: 09/08/21 04:31 09/08/21 04:31 ABG, PT/INR, D-dimer: ABG ABG pH 7.240 pH Units (7.350-7.450) L 09/01/21 23:56 ABG pCO2 111.3 mm Hg 09/01/21 23:56 ABG pO2 198.0 mm Hg (80.0-90.0) H 09/01/21 23:56 ABG O2 Saturation 99.0 % (95.0-99.0) 09/01/21 23:56 PT/INR, D-dimer D-Dimer 710.59 ng/mlDDU (0-234) H 08/31/21 19:32 Abnormal lab findings: Abnormal Labs 08/31/21 08/31/21 08/31/21 19:32 19:32 19:32 Hct RDW 16.4 H Lymph % (Auto) [place] % (Auto) 9.0 H Lymph # (Auto) [place] # (Auto) 1.0 H Seg Neutrophils % 76.2 H Seg Neuts % (Manual) Lymphocytes % (Manual) Seg Neutrophils # 8.3 H Lymphocytes # (Manual) D-Dimer 710.59 H ABG pH ABG pO2 ABG HCO3 ABG O2 Saturation ABG Base Excess Sodium Potassium Chloride 92.7 L Carbon Dioxide 36 H BUN Creatinine 0.4 L D Glucose 249 H POC Glucose Calcium ALT NT-Pro-B Natriuret Pep Albumin 08/31/21 08/31/21 09/01/21 19:32 21:05 09:24 Hct RDW Lymph % (Auto) [place] % (Auto) Lymph # (Auto) [place] # (Auto) Seg Neutrophils % Seg Neuts % (Manual) Lymphocytes % (Manual) Seg Neutrophils # Lymphocytes # (Manual) D-Dimer ABG pH 7.244 L ABG pO2 307.7 H ABG HCO3 47.9 H ABG O2 Saturation 99.4 H ABG Base Excess 16.0 H Sodium Potassium Chloride Carbon Dioxide BUN Creatinine Glucose POC Glucose 106 H Calcium ALT NT-Pro-B Natriuret Pep 524.1 H Albumin 09/01/21 09/01/21 09/01/21 13:39 16:22 23:56 Hct RDW Lymph % (Auto) [place] % (Auto) Lymph # (Auto) [place] # (Auto) Seg Neutrophils % Seg Neuts % (Manual) Lymphocytes % (Manual) Seg Neutrophils # Lymphocytes # (Manual) D-Dimer ABG pH 7.240 L ABG pO2 198.0 H ABG HCO3 46.6 H ABG O2 Saturation ABG Base Excess 14.8 H Sodium Potassium Chloride Carbon Dioxide BUN Creatinine Glucose POC Glucose 154 H 188 H Calcium ALT NT-Pro-B Natriuret Pep Albumin 09/02/21 09/02/21 09/02/21 01:49 07:22 07:22 Hct RDW 16.4 H Lymph % (Auto) [place] % (Auto) Lymph # (Auto) [place] # (Auto) Seg Neutrophils % Seg Neuts % (Manual) 97.0 H Lymphocytes % (Manual) 2.0 L Seg Neutrophils # Lymphocytes # (Manual) 0.1 L D-Dimer ABG pH ABG pO2 ABG HCO3 ABG O2 Saturation ABG Base Excess Sodium Potassium Chloride 82.7 L Carbon Dioxide 41 H* BUN 21 H Creatinine 0.3 L Glucose 198 H POC Glucose 132 H Calcium ALT NT-Pro-B Natriuret Pep Albumin 09/02/21 09/02/21 09/02/21 08:29 11:27 16:59 Hct RDW Lymph % (Auto) [place] % (Auto) Lymph # (Auto) [place] # (Auto) Seg Neutrophils % Seg Neuts % (Manual) Lymphocytes % (Manual) Seg Neutrophils # Lymphocytes # (Manual) D-Dimer ABG pH ABG pO2 ABG HCO3 ABG O2 Saturation ABG Base Excess Sodium Potassium Chloride Carbon Dioxide BUN Creatinine Glucose POC Glucose 201 H 232 H 118 H Calcium ALT NT-Pro-B Natriuret Pep Albumin 09/02/21 09/03/21 09/03/21 22:08 06:05 06:05 Hct RDW 16.5 H Lymph % (Auto) [place] % (Auto) Lymph # (Auto) [place] # (Auto) Seg Neutrophils % Seg Neuts % (Manual) 94.0 H Lymphocytes % (Manual) 3.0 L Seg Neutrophils # Lymphocytes # (Manual) 0.2 L D-Dimer ABG pH ABG pO2 ABG HCO3 ABG O2 Saturation ABG Base Excess Sodium Potassium Chloride 79.3 L Carbon Dioxide 52 H* D BUN 27 H Creatinine 0.2 L Glucose 228 H POC Glucose 241 H Calcium 10.4 H ALT 71 H NT-Pro-B Natriuret Pep Albumin 3.8 L 09/03/21 09/03/21 09/03/21 07:53 11:37 15:52 Hct RDW Lymph % (Auto) [place] % (Auto) Lymph # (Auto) [place] # (Auto) Seg Neutrophils % Seg Neuts % (Manual) Lymphocytes % (Manual) Seg Neutrophils # Lymphocytes # (Manual) D-Dimer ABG pH ABG pO2 ABG HCO3 ABG O2 Saturation ABG Base Excess Sodium Potassium Chloride Carbon Dioxide BUN Creatinine Glucose POC Glucose 241 H 202 H 284 H Calcium ALT NT-Pro-B Natriuret Pep Albumin 09/03/21 09/04/21 09/04/21 22:07 08:33 11:16 Hct RDW Lymph % (Auto) [place] % (Auto) Lymph # (Auto) [place] # (Auto) Seg Neutrophils % Seg Neuts % (Manual) Lymphocytes % (Manual) Seg Neutrophils # Lymphocytes # (Manual) D-Dimer ABG pH ABG pO2 ABG HCO3 ABG O2 Saturation ABG Base Excess Sodium Potassium Chloride Carbon Dioxide BUN Creatinine Glucose POC Glucose 311 H 232 H 356 H Calcium ALT NT-Pro-B Natriuret Pep Albumin 09/04/21 09/04/21 09/05/21 17:10 23:05 08:08 Hct RDW Lymph % (Auto) [place] % (Auto) Lymph # (Auto) [place] # (Auto) Seg Neutrophils % Seg Neuts % (Manual) Lymphocytes % (Manual) Seg Neutrophils # Lymphocytes # (Manual) D-Dimer ABG pH ABG pO2 ABG HCO3 ABG O2 Saturation ABG Base Excess Sodium Potassium Chloride Carbon Dioxide BUN Creatinine Glucose POC Glucose 328 H 150 H 342 H Calcium ALT NT-Pro-B Natriuret Pep Albumin 09/05/21 09/05/21 09/05/21 11:04 13:23 13:23 Hct RDW 17.1 H Lymph % (Auto) [place] % (Auto) Lymph # (Auto) [place] # (Auto) Seg Neutrophils % Seg Neuts % (Manual) Lymphocytes % (Manual) Seg Neutrophils # Lymphocytes # (Manual) D-Dimer ABG pH ABG pO2 ABG HCO3 ABG O2 Saturation ABG Base Excess Sodium Potassium 2.6 L* D Chloride 74.4 L Carbon Dioxide 46 H* BUN Creatinine 0.3 L Glucose 389 H POC Glucose 395 H Calcium ALT NT-Pro-B Natriuret Pep Albumin 09/05/21 09/05/21 09/06/21 16:22 21:09 08:02 Hct RDW Lymph % (Auto) [place] % (Auto) Lymph # (Auto) [place] # (Auto) Seg Neutrophils % Seg Neuts % (Manual) Lymphocytes % (Manual) Seg Neutrophils # Lymphocytes # (Manual) D-Dimer ABG pH ABG pO2 ABG HCO3 ABG O2 Saturation ABG Base Excess Sodium Potassium Chloride Carbon Dioxide BUN Creatinine Glucose POC Glucose 195 H 243 H 119 H Calcium ALT NT-Pro-B Natriuret Pep Albumin 09/06/21 09/06/21 09/06/21 11:00 11:19 16:06 Hct RDW Lymph % (Auto) [place] % (Auto) Lymph # (Auto) [place] # (Auto) Seg Neutrophils % Seg Neuts % (Manual) Lymphocytes % (Manual) Seg Neutrophils # Lymphocytes # (Manual) D-Dimer ABG pH ABG pO2 ABG HCO3 ABG O2 Saturation ABG Base Excess Sodium 136 L Potassium Chloride 78.3 L Carbon Dioxide 47 H* BUN Creatinine 0.3 L Glucose 354 H POC Glucose 309 H 381 H Calcium ALT NT-Pro-B Natriuret Pep Albumin 09/06/21 09/07/21 09/07/21 22:25 11:11 16:50 Hct RDW Lymph % (Auto) [place] % (Auto) Lymph # (Auto) [place] # (Auto) Seg Neutrophils % Seg Neuts % (Manual) Lymphocytes % (Manual) Seg Neutrophils # Lymphocytes # (Manual) D-Dimer ABG pH ABG pO2 ABG HCO3 ABG O2 Saturation ABG Base Excess Sodium Potassium Chloride Carbon Dioxide BUN Creatinine Glucose POC Glucose 217 H 442 H 222 H Calcium ALT NT-Pro-B Natriuret Pep Albumin 09/07/21 09/08/21 09/08/21 21:52 04:31 04:31 Hct 44.9 H RDW 17.2 H Lymph % (Auto) 12.3 L [place] % (Auto) Lymph # (Auto) 1.0 L [place] # (Auto) Seg Neutrophils % 79.1 H Seg Neuts % (Manual) Lymphocytes % (Manual) Seg Neutrophils # Lymphocytes # (Manual) D-Dimer ABG pH ABG pO2 ABG HCO3 ABG O2 Saturation ABG Base Excess Sodium Potassium 2.8 L* D Chloride 87.6 L Carbon Dioxide 45 H* BUN Creatinine 0.2 L Glucose 46 L POC Glucose 360 H Calcium ALT NT-Pro-B Natriuret Pep Albumin 09/08/21 09/08/21 09/08/21 05:25 05:53 11:50 Hct RDW Lymph % (Auto) [place] % (Auto) Lymph # (Auto) [place] # (Auto) Seg Neutrophils % Seg Neuts % (Manual) Lymphocytes % (Manual) Seg Neutrophils # Lymphocytes # (Manual) D-Dimer ABG pH ABG pO2 ABG HCO3 ABG O2 Saturation ABG Base Excess Sodium Potassium Chloride Carbon Dioxide BUN Creatinine Glucose POC Glucose 39 L 64 L 280 H Calcium ALT NT-Pro-B Natriuret Pep Albumin 09/08/21 16:20 Hct RDW Lymph % (Auto) [place] % (Auto) Lymph # (Auto) [place] # (Auto) Seg Neutrophils % Seg Neuts % (Manual) Lymphocytes % (Manual) Seg Neutrophils # Lymphocytes # (Manual) D-Dimer ABG pH ABG pO2 ABG HCO3 ABG O2 Saturation ABG Base Excess Sodium Potassium Chloride Carbon Dioxide BUN Creatinine Glucose POC Glucose 256 H Calcium ALT NT-Pro-B Natriuret Pep Albumin
[2021-09-08] MEDS: INSULIN GLARGINE 100 UNITS/ML SUB-Q SCH (23:05)
[2021-09-09] MEDS: HEPARIN 5,000 UNIT/1 ML VIAL SUB-Q SCH ×3 (06:31→22:30)
[2021-09-09] MEDS: methylPREDNISolone Sod Succinate 125 MG/2 ML INJ IV SCH ×3 (06:32→22:29)
[2021-09-09] MEDS: POTASSIUM CHLORIDE ER 20 MEQ TAB PO SCH (09:00)
[2021-09-09] MEDS: FAMOTIDINE 20 MG TAB PO SCH ×2 (09:00→22:29)
[2021-09-09] MEDS: ALPRAZolam 1 MG TAB PO PRN ×2 (09:00→22:28)
[2021-09-09] MEDS: INSULIN LISPRO 100 UNIT/ML SUB-Q SCH ×4 (09:00→22:28)
[2021-09-09 09:41] LABS: Blood Urea Nitrogen 14 mg/dL (7-17); Calcium 8.8 mg/dL (8.4-10.2); Hemolysis Index 9
[2021-09-09 09:42] LABS: BUN/Creatinine Ratio 70
--- NOTE | 2021-09-09 16:37 | Progress Note ---
Assessment and Plan 50-year-old female patient was admitted with COVID-19 pneumonia severe hypoxic hypercapnic respiratory failure had a prolonged stay in the hospital for 3 to 4 months and was discharged on 08/28/2021 on home oxygen and long-term st eroids and other supportive care, patient again was admitted on the stabilized and discharged on the . patient already has home oxygen and all the medications are needed. Patient readmitted 09/01/21 with acute hypoxic respiratory failure and altered level of consciousness, s/p BiPAP, chest x-ray gaseous distention of the stomach. Pulmonary following, patient also has generalized anxiety on Xanax. 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 Gomes PCR test is negative Severe hypoxic and hypercapnic respiratory failure, required BiPAP on admission Patient was on 10 L of nasal cannula oxygen/100% nonrebreather/BiPAP, currently on high flow O2 25 L X-ray chest show moderate gaseous distention of the stomach severe diffuse bilateral chronic parenchymal opacities that have not changed chest x-ray Patient was recently discharged on on home 3 L oxygen CTA chest; no CT evidence of PE, diffuse severe bilateral mixed interstitial and alveolar opacities CT head without contrast; there is 2 small 2 to 3 mm focus of calcification along the lateral left frontal lobe which appears to be incidental, Patient is receiving currently high-dose Solu-Medrol therapy, per pulmonary --Abdominal distention with ileus Pulmonary recommended NG tube placement with intermittent suction for gastric distention Repeat abdomen x-ray 09/03 showed no gaseous distention, now tolerating diet -- IDDM (insulin dependent diabetes mellitus) Continue home insulin and coverage Follow hemoglobin A1c, SSI as needed --[place] (generalized anxiety disorder) Continue Xanax as necessary --Hypokalemia, continue to replete and monitor BMP --DVT prophylaxis On Lovenox and GI prophylaxis Daily clinical course: 09/01/2021; on intermittent BiPAP, chest x-ray gaseous distention of stomach recommend, NG tube placement intermittent suction and supportive care Disposition monitor closely wean will oxygen;, 2 -4 to 5 L nasal cannula, and discharge when stable. Patient already has home oxygen 09/02: Remains hypoxic and hypercapnic, somnolent post Ativan, on high flow O2 30 to 40 L, high-dose Solu-Medrol and NG tube for gastric distention. wean FiO2 as tolerated and BiPAP as needed for the hypercapnia, recheck ABG. Discussed with the pulmonary and nursing staff. 09/03: Off BiPAP this morning, continue to follow serum glucose, patient on high-dose steroid, continue high flow O2 and wean off as tolerated. Repeat abdominal x-ray showed non significant normal bowel gas pattern. Will initiate on clear liquid diet, will monitor off NG tube. 09/04; continue to follow clinically, empiric steroid, wean off O2 as tolerated, patient remains on high flow O2. Will advance diet as tolerated. Continue to monitor serum blood glucose and adjust insulin doses accordingly. 09/05: Follow clinically, consistent carb diet, high-dose empiric steroid, wean off O2 as tolerated. Transfer out of intermediate care to [facility] with telemetry. 09/06: Remains on high flow O2 25 L, continue to provide supportive care, wean off O2 as tolerated, adjust serum blood glucose with insulin, tolerating consistent carb diet. 09/07/21: Continue to replete electrolytes and monitor. Wean off O2 as tolerated, guarded prognosis, continue empiric steroid. Follow clinically. 09/08/21; continue to replete and monitor potassium, wean off O2 as tolerated. Patient remains on 25 L high flow O2. Continue empiric steroid, follow clinically. 09/09/21; spiking temp, will order pancultures, repeat chest x-ray, guarded prognosis, remains on 25 L high flow O2, follow clinically Subjective Date of service: 09/09/21 Interval history: Patient seen and examined. Medical records and medication list reviewed. No acute event overnight noted by the RN. Patient complains of difficulty breathing even on minimal exertion. Patient on high flow O2, tolerating diet, spiking temp Discussed plan of care at bedside with patient's RN and CM . Objective - Exam Narrative Exam: GENERAL: well-developed and well-nourished female lying on bed appeared to be in moderate discomfort. HEENT: Normocephalic. Atraumatic. No conjunctival congestion or icterus. Patient has moist mucous membranes. NECK: Supple. Trachea midline. CHEST/LUNGS: Diminished breath sound bilaterally. No wheezes crackles or rhonchi. Patient on high flow O2 HEART/CARDIOVASCULAR: Regular in rate and rhythm. S1 and S2 positive. ABDOMEN: Abdomen is soft, nontender. Patient has normal bowel sounds. SKIN: There is no rash. Warm and dry. NEURO: No focal motor deficit. Follows command. MUSCULOSKELETAL: No joint effusion or tenderness. EXTRIMITY: No edema, no cyanosis or clubbing. PSYCH: Cooperative but appears anxious. - Constitutional Vitals: Vital Signs - 12hr 09/09/21 09/09/21 09/09/21 06:05 10:00 11:13 Temperature 98.2 F 97.8 F Pulse Rate 91 H 110 H Respiratory 18 26 H Rate Blood Pressure 114/77 120/78 O2 Sat by Pulse 96 92 93 Oximetry - Labs CBC & Chem 7: 09/08/21 04:31 09/09/21 07:50 Labs: Abnormal lab results 09/08/21 09/09/21 09/09/21 Range/Units 21:32 07:20 07:50 Chloride 88.8 L (98-107) mmol/L Carbon Dioxide 39 H (22-30) mmol/L Creatinine < 0.2 L (0.6-1.2) mg/dL Glucose 197 H (65-100) mg/dL POC Glucose 203 H 194 H (70-105) mg/dL 09/09/21 Range/Units 11:13 Chloride (98-107) mmol/L Carbon Dioxide (22-30) mmol/L Creatinine (0.6-1.2) mg/dL Glucose (65-100) mg/dL POC Glucose 258 H (70-105) mg/dL
--- NOTE | 2021-09-09 17:00 | XRay Report ---
CHEST 1 VIEW 09/09/2021 4:40 PM INDICATION / CLINICAL INFORMATION: fever. COMPARISON: 09/02/2021 FINDINGS: SUPPORT DEVICES: None. HEART / MEDIASTINUM: No significant abnormality. LUNGS / PLEURA: Diffuse bilateral pulmonary opacities No pneumothorax. ADDITIONAL FINDINGS: No significant additional findings. IMPRESSION: 1. Diffuse bilateral pulmonary opacities Signer Name: Yunior Roberson MD Signed: 09/09/2021 4:56 PM Workstation Name: [email or web address]
[2021-09-09] MEDS: ACETAMINOPHEN 325 MG TAB PO PRN ×2 (17:10→22:37)
[2021-09-09] MEDS: INSULIN GLARGINE 100 UNITS/ML SUB-Q SCH (22:28)
[2021-09-10] MEDS: HEPARIN 5,000 UNIT/1 ML VIAL SUB-Q SCH ×3 (06:14→22:26)
[2021-09-10] MEDS: methylPREDNISolone Sod Succinate 125 MG/2 ML INJ IV SCH ×3 (06:14→22:27)
[2021-09-10 07:51] LABS: Bacteria,Urine 2+ /HPF (Negative); Bilirubin,Urine NEG (Negative); Blood,Urine SM (Negative); Calcium Oxalate Crystals,Urine FEW; Color,Urine Yellow (Yellow); Mucus,Urine 1+ /HPF; Protein,Urine <15 mg/dL mg/dL (Negative); Urobilinogen,Urine < 2.0 mg/dL (<2.0)
[2021-09-10] MEDS: INSULIN LISPRO 100 UNIT/ML SUB-Q SCH ×4 (08:54→22:25)
[2021-09-10] MEDS: ALPRAZolam 1 MG TAB PO PRN ×2 (08:55→22:24)
--- NOTE | 2021-09-10 09:09 | Progress Note ---
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 Will consider weaning steroids again or Thursday. 09/08/21: Continue steroids at current dosing. Wean Fio2 for sats >88%. 09/06/21: Will drop steroids to 60 q8 starting now. 09/04/21: Will start to taper steroids today. Continue to wean FiO2 as tolerated. Anxiety control. High dose steroids Anxiety therapy Wean FiO2 as tolerated ABG not indicated currently as she is sleepy from IV ativan administered because she is NPO and could not get her xanax Subjective Date of service: 09/10/21 Interval history: No acute events. REmains on HFNC Objective Vital Signs - 12hr 09/09/21 09/09/21 09/09/21 22:00 22:05 22:37 Temperature 97.1 F L Pulse Rate 110 H 99 H Pulse Rate [ 99 H From Monitor] Respiratory 18 22 Rate Blood Pressure 113/69 O2 Sat by Pulse 92 99 Oximetry 09/09/21 09/10/21 23:37 05:29 Temperature 97.5 F L Pulse Rate 82 Pulse Rate [ From Monitor] Respiratory 20 18 Rate Blood Pressure 118/75 O2 Sat by Pulse 97 Oximetry CBC and BMP: 09/08/21 04:31 09/09/21 07:50 ABG, PT/INR, D-dimer: ABG ABG pH 7.240 pH Units (7.350-7.450) L 09/01/21 23:56 ABG pCO2 111.3 mm Hg 09/01/21 23:56 ABG pO2 198.0 mm Hg (80.0-90.0) H 09/01/21 23:56 ABG O2 Saturation 99.0 % (95.0-99.0) 09/01/21 23:56 PT/INR, D-dimer D-Dimer 710.59 ng/mlDDU (0-234) H 08/31/21 19:32 Abnormal lab findings: Abnormal Labs 08/31/21 08/31/21 08/31/21 19:32 19:32 19:32 Hct RDW 16.4 H Lymph % (Auto) [place] % (Auto) 9.0 H Lymph # (Auto) [place] # (Auto) 1.0 H Seg Neutrophils % 76.2 H Seg Neuts % (Manual) Lymphocytes % (Manual) Seg Neutrophils # 8.3 H Lymphocytes # (Manual) D-Dimer 710.59 H ABG pH ABG pO2 ABG HCO3 ABG O2 Saturation ABG Base Excess Sodium Potassium Chloride 92.7 L Carbon Dioxide 36 H BUN Creatinine 0.4 L D Glucose 249 H POC Glucose Calcium ALT NT-Pro-B Natriuret Pep Albumin Urine WBC (Auto) 08/31/21 08/31/21 09/01/21 19:32 21:05 09:24 Hct RDW Lymph % (Auto) [place] % (Auto) Lymph # (Auto) [place] # (Auto) Seg Neutrophils % Seg Neuts % (Manual) Lymphocytes % (Manual) Seg Neutrophils # Lymphocytes # (Manual) D-Dimer ABG pH 7.244 L ABG pO2 307.7 H ABG HCO3 47.9 H ABG O2 Saturation 99.4 H ABG Base Excess 16.0 H Sodium Potassium Chloride Carbon Dioxide BUN Creatinine Glucose POC Glucose 106 H Calcium ALT NT-Pro-B Natriuret Pep 524.1 H Albumin Urine WBC (Auto) 09/01/21 09/01/21 09/01/21 13:39 16:22 23:56 Hct RDW Lymph % (Auto) [place] % (Auto) Lymph # (Auto) [place] # (Auto) Seg Neutrophils % Seg Neuts % (Manual) Lymphocytes % (Manual) Seg Neutrophils # Lymphocytes # (Manual) D-Dimer ABG pH 7.240 L ABG pO2 198.0 H ABG HCO3 46.6 H ABG O2 Saturation ABG Base Excess 14.8 H Sodium Potassium Chloride Carbon Dioxide BUN Creatinine Glucose POC Glucose 154 H 188 H Calcium ALT NT-Pro-B Natriuret Pep Albumin Urine WBC (Auto) 09/02/21 09/02/21 09/02/21 01:49 07:22 07:22 Hct RDW 16.4 H Lymph % (Auto) [place] % (Auto) Lymph # (Auto) [place] # (Auto) Seg Neutrophils % Seg Neuts % (Manual) 97.0 H Lymphocytes % (Manual) 2.0 L Seg Neutrophils # Lymphocytes # (Manual) 0.1 L D-Dimer ABG pH ABG pO2 ABG HCO3 ABG O2 Saturation ABG Base Excess Sodium Potassium Chloride 82.7 L Carbon Dioxide 41 H* BUN 21 H Creatinine 0.3 L Glucose 198 H POC Glucose 132 H Calcium ALT NT-Pro-B Natriuret Pep Albumin Urine WBC (Auto) 09/02/21 09/02/21 09/02/21 08:29 11:27 16:59 Hct RDW Lymph % (Auto) [place] % (Auto) Lymph # (Auto) [place] # (Auto) Seg Neutrophils % Seg Neuts % (Manual) Lymphocytes % (Manual) Seg Neutrophils # Lymphocytes # (Manual) D-Dimer ABG pH ABG pO2 ABG HCO3 ABG O2 Saturation ABG Base Excess Sodium Potassium Chloride Carbon Dioxide BUN Creatinine Glucose POC Glucose 201 H 232 H 118 H Calcium ALT NT-Pro-B Natriuret Pep Albumin Urine WBC (Auto) 09/02/21 09/03/21 09/03/21 22:08 06:05 06:05 Hct RDW 16.5 H Lymph % (Auto) [place] % (Auto) Lymph # (Auto) [place] # (Auto) Seg Neutrophils % Seg Neuts % (Manual) 94.0 H Lymphocytes % (Manual) 3.0 L Seg Neutrophils # Lymphocytes # (Manual) 0.2 L D-Dimer ABG pH ABG pO2 ABG HCO3 ABG O2 Saturation ABG Base Excess Sodium Potassium Chloride 79.3 L Carbon Dioxide 52 H* D BUN 27 H Creatinine 0.2 L Glucose 228 H POC Glucose 241 H Calcium 10.4 H ALT 71 H NT-Pro-B Natriuret Pep Albumin 3.8 L Urine WBC (Auto) 09/03/21 09/03/21 09/03/21 07:53 11:37 15:52 Hct RDW Lymph % (Auto) [place] % (Auto) Lymph # (Auto) [place] # (Auto) Seg Neutrophils % Seg Neuts % (Manual) Lymphocytes % (Manual) Seg Neutrophils # Lymphocytes # (Manual) D-Dimer ABG pH ABG pO2 ABG HCO3 ABG O2 Saturation ABG Base Excess Sodium Potassium Chloride Carbon Dioxide BUN Creatinine Glucose POC Glucose 241 H 202 H 284 H Calcium ALT NT-Pro-B Natriuret Pep Albumin Urine WBC (Auto) 09/03/21 09/04/21 09/04/21 22:07 08:33 11:16 Hct RDW Lymph % (Auto) [place] % (Auto) Lymph # (Auto) [place] # (Auto) Seg Neutrophils % Seg Neuts % (Manual) Lymphocytes % (Manual) Seg Neutrophils # Lymphocytes # (Manual) D-Dimer ABG pH ABG pO2 ABG HCO3 ABG O2 Saturation ABG Base Excess Sodium Potassium Chloride Carbon Dioxide BUN Creatinine Glucose POC Glucose 311 H 232 H 356 H Calcium ALT NT-Pro-B Natriuret Pep Albumin Urine WBC (Auto) 09/04/21 09/04/21 09/05/21 17:10 23:05 08:08 Hct RDW Lymph % (Auto) [place] % (Auto) Lymph # (Auto) [place] # (Auto) Seg Neutrophils % Seg Neuts % (Manual) Lymphocytes % (Manual) Seg Neutrophils # Lymphocytes # (Manual) D-Dimer ABG pH ABG pO2 ABG HCO3 ABG O2 Saturation ABG Base Excess Sodium Potassium Chloride Carbon Dioxide BUN Creatinine Glucose POC Glucose 328 H 150 H 342 H Calcium ALT NT-Pro-B Natriuret Pep Albumin Urine WBC (Auto) 09/05/21 09/05/21 09/05/21 11:04 13:23 13:23 Hct RDW 17.1 H Lymph % (Auto) [place] % (Auto) Lymph # (Auto) [place] # (Auto) Seg Neutrophils % Seg Neuts % (Manual) Lymphocytes % (Manual) Seg Neutrophils # Lymphocytes # (Manual) D-Dimer ABG pH ABG pO2 ABG HCO3 ABG O2 Saturation ABG Base Excess Sodium Potassium 2.6 L* D Chloride 74.4 L Carbon Dioxide 46 H* BUN Creatinine 0.3 L Glucose 389 H POC Glucose 395 H Calcium ALT NT-Pro-B Natriuret Pep Albumin Urine WBC (Auto) 09/05/21 09/05/21 09/06/21 16:22 21:09 08:02 Hct RDW Lymph % (Auto) [place] % (Auto) Lymph # (Auto) [place] # (Auto) Seg Neutrophils % Seg Neuts % (Manual) Lymphocytes % (Manual) Seg Neutrophils # Lymphocytes # (Manual) D-Dimer ABG pH ABG pO2 ABG HCO3 ABG O2 Saturation ABG Base Excess Sodium Potassium Chloride Carbon Dioxide BUN Creatinine Glucose POC Glucose 195 H 243 H 119 H Calcium ALT NT-Pro-B Natriuret Pep Albumin Urine WBC (Auto) 09/06/21 09/06/21 09/06/21 11:00 11:19 16:06 Hct RDW Lymph % (Auto) [place] % (Auto) Lymph # (Auto) [place] # (Auto) Seg Neutrophils % Seg Neuts % (Manual) Lymphocytes % (Manual) Seg Neutrophils # Lymphocytes # (Manual) D-Dimer ABG pH ABG pO2 ABG HCO3 ABG O2 Saturation ABG Base Excess Sodium 136 L Potassium Chloride 78.3 L Carbon Dioxide 47 H* BUN Creatinine 0.3 L Glucose 354 H POC Glucose 309 H 381 H Calcium ALT NT-Pro-B Natriuret Pep Albumin Urine WBC (Auto) 09/06/21 09/07/21 09/07/21 22:25 11:11 16:50 Hct RDW Lymph % (Auto) [place] % (Auto) Lymph # (Auto) [place] # (Auto) Seg Neutrophils % Seg Neuts % (Manual) Lymphocytes % (Manual) Seg Neutrophils # Lymphocytes # (Manual) D-Dimer ABG pH ABG pO2 ABG HCO3 ABG O2 Saturation ABG Base Excess Sodium Potassium Chloride Carbon Dioxide BUN Creatinine Glucose POC Glucose 217 H 442 H 222 H Calcium ALT NT-Pro-B Natriuret Pep Albumin Urine WBC (Auto) 09/07/21 09/08/21 09/08/21 21:52 04:31 04:31 Hct 44.9 H RDW 17.2 H Lymph % (Auto) 12.3 L [place] % (Auto) Lymph # (Auto) 1.0 L [place] # (Auto) Seg Neutrophils % 79.1 H Seg Neuts % (Manual) Lymphocytes % (Manual) Seg Neutrophils # Lymphocytes # (Manual) D-Dimer ABG pH ABG pO2 ABG HCO3 ABG O2 Saturation ABG Base Excess Sodium Potassium 2.8 L* D Chloride 87.6 L Carbon Dioxide 45 H* BUN Creatinine 0.2 L Glucose 46 L POC Glucose 360 H Calcium ALT NT-Pro-B Natriuret Pep Albumin Urine WBC (Auto) 09/08/21 09/08/21 09/08/21 05:25 05:53 11:50 Hct RDW Lymph % (Auto) [place] % (Auto) Lymph # (Auto) [place] # (Auto) Seg Neutrophils % Seg Neuts % (Manual) Lymphocytes % (Manual) Seg Neutrophils # Lymphocytes # (Manual) D-Dimer ABG pH ABG pO2 ABG HCO3 ABG O2 Saturation ABG Base Excess Sodium Potassium Chloride Carbon Dioxide BUN Creatinine Glucose POC Glucose 39 L 64 L 280 H Calcium ALT NT-Pro-B Natriuret Pep Albumin Urine WBC (Auto) 09/08/21 09/08/21 09/09/21 16:20 21:32 07:20 Hct RDW Lymph % (Auto) [place] % (Auto) Lymph # (Auto) [place] # (Auto) Seg Neutrophils % Seg Neuts % (Manual) Lymphocytes % (Manual) Seg Neutrophils # Lymphocytes # (Manual) D-Dimer ABG pH ABG pO2 ABG HCO3 ABG O2 Saturation ABG Base Excess Sodium Potassium Chloride Carbon Dioxide BUN Creatinine Glucose POC Glucose 256 H 203 H 194 H Calcium ALT NT-Pro-B Natriuret Pep Albumin Urine WBC (Auto) 09/09/21 09/09/21 09/09/21 07:50 11:13 16:20 Hct RDW Lymph % (Auto) [place] % (Auto) Lymph # (Auto) [place] # (Auto) Seg Neutrophils % Seg Neuts % (Manual) Lymphocytes % (Manual) Seg Neutrophils # Lymphocytes # (Manual) D-Dimer ABG pH ABG pO2 ABG HCO3 ABG O2 Saturation ABG Base Excess Sodium Potassium Chloride 88.8 L Carbon Dioxide 39 H BUN Creatinine < 0.2 L Glucose 197 H POC Glucose 258 H 231 H Calcium ALT NT-Pro-B Natriuret Pep Albumin Urine WBC (Auto) 09/09/21 09/10/21 09/10/21 22:17 07:00 08:02 Hct RDW Lymph % (Auto) [place] % (Auto) Lymph # (Auto) [place] # (Auto) Seg Neutrophils % Seg Neuts % (Manual) Lymphocytes % (Manual) Seg Neutrophils # Lymphocytes # (Manual) D-Dimer ABG pH ABG pO2 ABG HCO3 ABG O2 Saturation ABG Base Excess Sodium Potassium Chloride Carbon Dioxide BUN Creatinine Glucose POC Glucose 222 H 213 H Calcium ALT NT-Pro-B Natriuret Pep Albumin Urine WBC (Auto) 24.0 H
[2021-09-10] MEDS: FAMOTIDINE 20 MG TAB PO SCH ×2 (10:06→22:29)
--- NOTE | 2021-09-10 10:39 | Progress Note ---
Assessment and Plan Assessment and plan: 50-year-old female patient was admitted with COVID-19 pneumonia severe hypoxic hypercapnic respiratory failure had a prolonged stay in the hospital for 3 to 4 months and was discharged on 08/28/2021 on home oxygen and long-term steroids and other supportive care, patient again was admitted on the stabilized and discharged on the . patient already has home oxygen and all the medications are needed. Patient readmitted 09/01/21 with acute hypoxic respiratory failure and altered level of consciousness, s/p BiPAP, chest x-ray gaseous distention of the stomach. Pulmonary following, patient also has generalized anxiety on Xanax. 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 Gomes PCR test is negative Severe hypoxic and hypercapnic respiratory failure, required BiPAP on admission Patient was on 10 L of nasal cannula oxygen/100% nonrebreather/BiPAP, currently on high flow O2 25 L X-ray chest show moderate gaseous distention of the stomach severe diffuse bilateral chronic parenchymal opacities that have not changed chest x-ray Patient was recently discharged on on home 3 L oxygen CTA chest; no CT evidence of PE, diffuse severe bilateral mixed interstitial and alveolar opacities CT head without contrast; there is 2 small 2 to 3 mm focus of calcification along the lateral left frontal lobe which appears to be incidental, Patient is receiving currently high-dose Solu-Medrol therapy, per pulmonary --Abdominal distention with ileus Pulmonary recommended NG tube placement with intermittent suction for gastric distention Repeat abdomen x-ray 09/03 showed no gaseous distention, now tolerating diet -- IDDM (insulin dependent diabetes mellitus) Continue home insulin and coverage Follow hemoglobin A1c, SSI as needed --[place] (generalized anxiety disorder) Continue Xanax as necessary --Hypokalemia, continue to replete and monitor BMP --DVT prophylaxis On Lovenox and GI prophylaxis Daily clinical course: 09/01/2021; on intermittent BiPAP, chest x-ray gaseous distention of stomach rec ommend, NG tube placement intermittent suction and supportive care Disposition monitor closely wean will oxygen;, 2 -4 to 5 L nasal cannula, and discharge when stable. Patient already has home oxygen 09/02: Remains hypoxic and hypercapnic, somnolent post Ativan, on high flow O2 30 to 40 L, high-dose Solu-Medrol and NG tube for gastric distention. wean FiO2 as tolerated and BiPAP as needed for the hypercapnia, recheck ABG. Discussed with the pulmonary and nursing staff. 09/03: Off BiPAP this morning, continue to follow serum glucose, patient on high-dose steroid, continue high flow O2 and wean off as tolerated. Repeat abdominal x-ray showed non significant normal bowel gas pattern. Will initiate on clear liquid diet, will monitor off NG tube. 09/04; continue to follow clinically, empiric steroid, wean off O2 as tolerated, patient remains on high flow O2. Will advance diet as tolerated. Continue to monitor serum blood glucose and adjust insulin doses accordingly. 09/05: Follow clinically, consistent carb diet, high-dose empiric steroid, wean off O2 as tolerated. Transfer out of intermediate care to [facility] with telemetry. 09/06: Remains on high flow O2 25 L, continue to provide supportive care, wean off O2 as tolerated, adjust serum blood glucose with insulin, tolerating consistent carb diet. 09/07/21: Continue to replete electrolytes and monitor. Wean off O2 as guevara erated, guarded prognosis, continue empiric steroid. Follow clinically. 09/08/21; continue to replete and monitor potassium, wean off O2 as tolerated. Patient remains on 25 L high flow O2. Continue empiric steroid, follow clinically. 09/09/21; spiking temp, will order pancultures, repeat chest x-ray, guarded prognosis, remains on 25 L high flow O2, follow clinically 09/10; patient is afebrile, remains on high flow 25 L nasal cannula oxygen, wean as tolerated, patient already has home oxygen Wean aggressively as tolerated, if no improvement consider hospice History Interval history: I have seen and examined the patient at the bedside this morning Patient remains on high flow nasal cannula oxygen 25 L Complains of mild shortness of breath Hospitalist Physical - Constitutional Vitals: Temp Pulse Resp BP Pulse Ox 97.5 F L 82 18 118/75 90 09/10/21 05:29 09/10/21 05:29 09/10/21 05:29 09/10/21 05:29 09/10/21 09:45 General appearance: Present: mild distress, well-nourished, other (On high flow oxygen, more alert and awake) - EENT Eyes: Present: PERRL, EOM intact - Neck Neck: Present: supple, normal ROM - Respiratory Respiratory effort: normal Respiratory: bilateral: diminished, rhonchi, negative: rales, wheezing - Cardiovascular Rhythm: regular Heart Sounds: Present: S1 & S2 - Extremities Extremities: no ischemia, No edema - Abdominal General gastrointestinal: soft, non-tender, non-distended, normal bowel sounds - Integumentary Integumentary: Present: clear, warm - Psychiatric Psychiatric: appropriate mood/affect, cooperative - Neurologic Neurologic: moves all extremities Results - Labs CBC & Chem 7: 09/08/21 04:31 09/09/21 07:50 Labs: Laboratory Last Values WBC 8.2 K/mm3 (4.5-11.0) 09/08/21 04:31 RBC 4.99 M/mm3 (3.65-5.03) 09/08/21 04:31 Hgb 14.2 gm/dl (10.1-14.3) 09/08/21 04:31 Hct 44.9 % (30.3-42.9) H 09/08/21 04:31 MCV 90 fl (79-97) 09/08/21 04:31 MCH 28 pg (28-32) 09/08/21 04:31 MCHC 32 % (30-34) 09/08/21 04:31 RDW 17.2 % (13.2-15.2) H 09/08/21 04:31 Plt Count 178 K/mm3 (140-440) 09/08/21 04:31 Lymph % (Auto) 12.3 % (13.4-35.0) L 09/08/21 04:31 Cassia % (Auto) 6.6 % (0.0-7.3) 09/08/21 04:31 Eos % (Auto) 0.3 % (0.0-4.3) 09/08/21 04:31 Baso % (Auto) 1.7 % (0.0-1.8) 09/08/21 04:31 Lymph # (Auto) 1.0 K/mm3 (1.2-5.4) L 09/08/21 04:31 Cassia # (Auto) 0.5 K/mm3 (0.0-0.8) 09/08/21 04:31 Eos # (Auto) 0.0 K/mm3 (0.0-0.4) 09/08/21 04:31 Baso # (Auto) 0.1 K/mm3 (0.0-0.1) 09/08/21 04:31 Add Manual Diff Complete 09/03/21 06:05 Total Counted 100 09/03/21 06:05 Seg Neutrophils % 79.1 % (40.0-70.0) H 09/08/21 04:31 Seg Neuts % (Manual) 94.0 % (40.0-70.0) H 09/03/21 06:05 Lymphocytes % (Manual) 3.0 % (13.4-35.0) L 09/03/21 06:05 Monocytes % (Manual) 3.0 % (0.0-7.3) 09/03/21 06:05 Nucleated RBC % Not Reportable 09/03/21 06:05 Seg Neutrophils # 6.5 K/mm3 (1.8-7.7) 09/08/21 04:31 Seg Neutrophils # Man 7.3 K/mm3 (1.8-7.7) 09/03/21 06:05 Band Neutrophils # 0.0 K/mm3 09/03/21 06:05 Lymphocytes # (Manual) 0.2 K/mm3 (1.2-5.4) L 09/03/21 06:05 Abs React Lymphs (Man) 0.0 K/mm3 09/03/21 06:05 Monocytes # (Manual) 0.2 K/mm3 (0.0-0.8) 09/03/21 06:05 Eosinophils # (Manual) 0.0 K/mm3 (0.0-0.4) 09/03/21 06:05 Basophils # (Manual) 0.0 K/mm3 (0.0-0.1) 09/03/21 06:05 Metamyelocytes # 0.0 K/mm3 09/03/21 06:05 Myelocytes # 0.0 K/mm3 09/03/21 06:05 Promyelocytes # 0.0 K/mm3 09/03/21 06:05 Blast Cells # 0.0 K/mm3 09/03/21 06:05 WBC Morphology Not Reportable 09/03/21 06:05 Hypersegmented Neuts Not Reportable 09/03/21 06:05 Hyposegmented Neuts Not Reportable 09/03/21 06:05 Hypogranular Neuts Not Reportable 09/03/21 06:05 Smudge Cells Not Reportable 09/03/21 06:05 Toxic Granulation Not Reportable 09/03/21 06:05 Toxic Vacuolation Not Reportable 09/03/21 06:05 Dohle Bodies Not Reportable 09/03/21 06:05 Pelger-Huet Anomaly Not Reportable 09/03/21 06:05 Janelle Rods Not Reportable 09/03/21 06:05 Platelet Estimate Consistent w auto 09/03/21 06:05 Clumped Platelets Not Reportable 09/03/21 06:05 Plt Clumps, EDTA Not Reportable 09/03/21 06:05 Large Platelets Not Reportable 09/03/21 06:05 Giant Platelets Not Reportable 09/03/21 06:05 Platelet Satelliting Not Reportable 09/03/21 06:05 Plt Morphology Comment Not Reportable 09/03/21 06:05 RBC Morphology Normal 09/03/21 06:05 Dimorphic RBCs Not Reportable 09/03/21 06:05 Polychromasia Not Reportable 09/03/21 06:05 Hypochromasia Not Reportable 09/03/21 06:05 Poikilocytosis 1+ 09/03/21 06:05 Anisocytosis Not Reportable 09/03/21 06:05 Microcytosis Not Reportable 09/03/21 06:05 Macrocytosis Not Reportable 09/03/21 06:05 Spherocytes Not Reportable 09/03/21 06:05 Pappenheimer Bodies Not Reportable 09/03/21 06:05 Sickle Cells Not Reportable 09/03/21 06:05 Target Cells Not Reportable 09/03/21 06:05 Tear Drop Cells Not Reportable 09/03/21 06:05 Ovalocytes Not Reportable 09/03/21 06:05 Stomatocytes 3+ 09/03/21 06:05 Helmet Cells Not Reportable 09/03/21 06:05 [place] Bodies Not Reportable 09/03/21 06:05 [place] Rings Not Reportable 09/03/21 06:05 [place] Cells Not Reportable 09/03/21 06:05 Bite Cells Not Reportable 09/03/21 06:05 Crenated Cell Not Reportable 09/03/21 06:05 Elliptocytes Not Reportable 09/03/21 06:05 Acanthocytes (Spur) Not Reportable 09/03/21 06:05 Rouleaux Not Reportable 09/03/21 06:05 Hemoglobin C Crystals Not Reportable 09/03/21 06:05 Schistocytes Not Reportable 09/03/21 06:05 Malaria parasites Not Reportable 09/03/21 06:05 Justin Bodies Not Reportable 09/03/21 06:05 Hem Pathologist Commnt No 09/03/21 06:05 D-Dimer 710.59 ng/mlDDU (0-234) H 08/31/21 19:32 ABG pH 7.240 pH Units (7.350-7.450) L 09/01/21 23:56 ABG pCO2 111.3 mm Hg 09/01/21 23:56 ABG pO2 198.0 mm Hg (80.0-90.0) H 09/01/21 23:56 ABG HCO3 46.6 mmol/L (20.0-26.0) H 09/01/21 23:56 ABG O2 Saturation 99.0 % (95.0-99.0) 09/01/21 23:56 ABG O2 Content 16.8 (0.0-44) 09/01/21 23:56 ABG Base Excess 14.8 mmol/L (-2.0-3.0) H 09/01/21 23:56 ABG Hemoglobin 12.0 gm/dl (12.0-16.0) 09/01/21 23:56 ABG Carboxyhemoglobin 1.6 % (0.0-5.0) 09/01/21 23:56 ABG Methemoglobin 0.6 % (0.0-1.5) 09/01/21 23:56 Oxyhemoglobin 96.8 % (95.0-99.0) 09/01/21 23:56 FiO2 60 % 09/01/21 23:56 Sodium 138 mmol/L (137-145) 09/09/21 07:50 Potassium 4.7 mmol/L (3.6-5.0) D 09/09/21 07:50 Chloride 88.8 mmol/L (98-107) L 09/09/21 07:50 Carbon Dioxide 39 mmol/L (22-30) H 09/09/21 07:50 Anion Gap 15 mmol/L 09/09/21 07:50 BUN 14 mg/dL (7-17) 09/09/21 07:50 Creatinine < 0.2 mg/dL (0.6-1.2) L 09/09/21 07:50 Estimated GFR > 60 ml/min 09/09/21 07:50 BUN/Creatinine Ratio 70 % 09/09/21 07:50 Glucose 197 mg/dL (65-100) H 09/09/21 07:50 POC Glucose 213 mg/dL (70-105) H 09/10/21 08:02 Calcium 8.8 mg/dL (8.4-10.2) 09/09/21 07:50 Magnesium 2.10 mg/dL (1.7-2.3) 09/08/21 04:31 Total Bilirubin 0.30 mg/dL (0.1-1.2) 09/03/21 06:05 AST 29 units/L (5-40) 09/03/21 06:05 ALT 71 units/L (7-56) H 09/03/21 06:05 Alkaline Phosphatase 82 units/L (35-129) 09/03/21 06:05 NT-Pro-B Natriuret Pep 524.1 pg/mL (0-450) H 08/31/21 19:32 Total Protein 7.0 g/dL (6.3-8.2) 09/03/21 06:05 Albumin 3.8 g/dL (3.9-5) L 09/03/21 06:05 Albumin/Globulin Ratio 1.2 % 09/03/21 06:05 HCG, Qual Negative (Negative) 08/31/21 19:32 Urine Color Yellow (Yellow) 09/10/21 07:00 Urine Turbidity Cloudy (Clear) 09/10/21 07:00 Urine pH 7.0 (5.0-7.0) 09/10/21 07:00 Ur Specific [place] 1.022 (1.003-1.030) 09/10/21 07:00 Urine Protein <15 mg/dl mg/dL (Negative) 09/10/21 07:00 Urine Glucose (UA) >=500 mg/dL (Negative) 09/10/21 07:00 Urine Ketones Neg mg/dL (Negative) 09/10/21 07:00 Urine Blood Sm (Negative) 09/10/21 07:00 Urine Nitrite Neg (Negative) 09/10/21 07:00 Urine Bilirubin Neg (Negative) 09/10/21 07:00 Urine Urobilinogen < 2.0 mg/dL (<2.0) 09/10/21 07:00 Ur Leukocyte Esterase Mod (Negative) 09/10/21 07:00 Urine WBC (Auto) 24.0 /HPF (0.0-6.0) H 09/10/21 07:00 Urine RBC (Auto) 17.0 /HPF (0.0-6.0) 09/10/21 07:00 U Epithel Cells (Auto) 3.0 /HPF (0-13.0) 09/10/21 07:00 Urine Bacteria (Auto) 2+ /HPF (Negative) 09/10/21 07:00 Calcium Oxalate Crystal Few 09/10/21 07:00 Urine Mucus 1+ /HPF 09/10/21 07:00 Ur Yeast w Hyphae Few /HPF 09/10/21 07:00 Urine Yeast (Budding) Few /HPF 09/10/21 07:00 Microbiology: Microbiology 09/09/21 18:02 Peripheral/Venous Blood Culture - Preliminary Culture in Progress 09/09/21 18:02 Peripheral/Venous Blood Culture - Preliminary Culture in Progress Amos/IV: Voiding Method External Female Catheter Active Medications - Current Medications Current Medications: Generic Name Dose Route Start Last Admin Trade Name Brennanq PRN Reason Stop Dose Admin Acetaminophen 650 mg 09/01/21 01:25 09/09/21 22:37 Acetaminophen 325 Mg Tab PO 650 mg Q4H PRN Administration Pain MILD(1-3)/Fever >100.5/[place] Albuterol 2.5 mg 09/01/21 01:25 Albuterol 2.5 Mg/3 Ml Nebu IH Q3HRT PRN Shortness Of Breath Alprazolam 1 mg 09/01/21 01:38 09/10/21 08:55 Alprazolam 1 Mg Tab PO 1 mg BID PRN Administration Agitation Dextrose 50 ml 09/01/21 01:25 Dextrose 50% In Water (25gm) 50 Ml Syringe IV Q30MIN PRN Hypoglycemia Protocol Famotidine 20 mg 09/01/21 10:00 09/10/21 10:06 Famotidine 20 Mg Tab PO 20 mg BID TUTU Administration Heparin Sodium (Porcine) 5,000 unit 09/01/21 06:00 09/10/21 06:14 Heparin 5,000 Unit/1 Ml Vial SUB-Q 5,000 unit Q8HR TUTU Administration Insulin Glargine 10 units 09/08/21 22:00 09/09/21 22:28 Insulin Glargine 100 Units/Ml SUB-Q 10 units QHS TUTU Administration Insulin Human Lispro 0 unit 09/01/21 07:30 09/10/21 08:54 Insulin Lispro 100 Unit/Ml SUB-Q 3 unit ACHS TUTU Administration Protocol Methylprednisolone Sodium Succinate 60 mg 09/06/21 14:03 09/10/21 06:14 Methylprednisolone Sod Succinate 125 Mg/2 Ml Inj IV 60 mg Q8HR TUTU Administration Ondansetron HCl 4 mg 09/01/21 01:25 09/05/21 15:12 Ondansetron 4 Mg/2 Ml Inj IV 4 mg Q8H PRN Administration Nausea And Vomiting Sodium Chloride 10 ml 09/01/21 10:00 09/10/21 10:06 Sodium Chloride 0.9% 10 Ml Flush Syringe IV 10 ml BID TUTU Administration Sodium Chloride 10 ml 09/01/21 01:25 09/01/21 14:16 Sodium Chloride 0.9% 10 Ml Flush Syringe IV 10 ml PRN PRN Administration LINE FLUSH Nutrition/Malnutrition Assess - Dietary Evaluation Nutrition/Malnutrition Findings: Nutrition Notes Start: 09/01/21 12:25 Freq: Status: Active Protocol: Document 09/09/21 14:03 SAQIB (Rec: 09/09/21 14:18 SAQIB [id number]) Nutrition Notes Initial or Follow up Brief Note Current Diagnosis Diabetes,Respiratory Failure Other Pertinent Diagnosis Post COVID-19 Syndrome, hypercapnia, [place]. Current Diet Consistent Carbohydrates Diet (since B 09/06). Height 5 ft 2 in Weight 54 kg [place] Body Weight (kg) 50.00 BMI 21.7 Weight change and time frame No body weight change reported . Weight Status Appropriate Subjective/Other Information RD consult on dietary advancement, %PO tolerance and intake of meals. Pt's current %PO intake of meals is close to 75%, according to ADL notes. Percent of energy/protein needs met: Prescribed Consistent Carbohydrates Diet provides for energy/protein needs (2, 061 Kcal/91 g) during LOS. Current % PO Fair (50-74%) Nutrition Intervention Change Diet Order: Continue Consistent Carbohydrates Diet. Goal #1 Maintain body weight within +/ -3% of admission body weight during LOS. Goal #2 Reach and maintain acceptable chemistry lab values during LOS. Follow-Up By: 09/16/21 Additional Comments Continue monitoring food tolerance, %PO intake of meals , Hydration, and BM.
[2021-09-10] MEDS: INSULIN GLARGINE 100 UNITS/ML SUB-Q SCH (22:26)
[2021-09-10] MEDS: ACETAMINOPHEN 325 MG TAB PO PRN (22:33)
[2021-09-11] MEDS: HEPARIN 5,000 UNIT/1 ML VIAL SUB-Q SCH ×3 (05:44→23:10)
[2021-09-11] MEDS: methylPREDNISolone Sod Succinate 125 MG/2 ML INJ IV SCH ×3 (05:45→23:11)
--- NOTE | 2021-09-11 08:44 | Progress Note ---
Assessment and Plan Assessment and plan: 50-year-old female patient was admitted with COVID-19 pneumonia severe hypoxic hypercapnic respiratory failure had a prolonged stay in the hospital for 3 to 4 months and was discharged on 08/28/2021 on home oxygen and long-term steroids and other supportive care, patient again was admitted on the stabilized and discharged on the . patient already has home oxygen and all the medications are needed. Patient readmitted 09/01/21 with acute hypoxic respiratory failure and altered level of consciousness, s/p BiPAP, chest x-ray gaseous distention of the stomach. Pulmonary following, patient also has generalized anxiety on Xanax. 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 Gomes PCR test is negative Severe hypoxic and hypercapnic respiratory failure, required BiPAP on admission Patient was on 10 L of nasal cannula oxygen/100% nonrebreather/BiPAP, currently on high flow O2 25 L X-ray chest show moderate gaseous distention of the stomach severe diffuse bilateral chronic parenchymal opacities that have not changed chest x-ray Patient was recently discharged on on home 3 L oxygen CTA chest; no CT evidence of PE, diffuse severe bilateral mixed interstitial and alveolar opacities CT head without contrast; there is 2 small 2 to 3 mm focus of calcification along the lateral left frontal lobe which appears to be incidental, Patient is receiving currently high-dose Solu-Medrol therapy, per pulmonary --Abdominal distention with ileus Pulmonary recommended NG tube placement with intermittent suction for gastric distention Repeat abdomen x-ray 09/03 showed no gaseous distention, now tolerating diet -- IDDM (insulin dependent diabetes mellitus) Continue home insulin and coverage Follow hemoglobin A1c, SSI as needed --[place] (generalized anxiety disorder) intermittent panic episodes Continue Xanax as necessary Psych consult --Hypokalemia, continue to replete and monitor BMP --DVT prophylaxis On Lovenox and GI prophylaxis Daily clinical course: 09/01/2021; on intermittent BiPAP, chest x-ray gaseous distention of stomach recommend, NG tube placement intermittent suction and supportive care Disposition monitor closely wean will oxygen;, 2 -4 to 5 L nasal cannula, and discharge when stable. Patient already has home oxygen 09/02: Remains hypoxic and hypercapnic, somnolent post Ativan, on high flow O2 30 to 40 L, high-dose Solu-Medrol and NG tube for gastric distention. wean FiO2 as tolerated and BiPAP as needed for the hypercapnia, recheck ABG. Discussed with the pulmonary and nursing staff. 09/03: Off BiPAP this morning, continue to follow serum glucose, patient on high-dose steroid, continue high flow O2 and wean off as tolerated. Repeat abdominal x-ray showed non significant normal bowel gas pattern. Will initiate on clear liquid diet, will monitor off NG tube. 09/04; continue to follow clinically, empiric steroid, wean off O2 as tolerated, patient remains on high flow O2. Will advance diet as tolerated. Continue to monitor serum blood glucose and adjust insulin doses accordingly. 09/05: Follow clinically, consistent carb diet, high-dose empiric steroid, wean off O2 as tolerated. Transfer out of intermediate care to [facility] with telemetry. 09/06: Remains on high flow O2 25 L, continue to provide supportive care, wean off O2 as tolerated, adjust serum blood glucose with insulin, tolerating consistent carb diet. 09/07/21: Continue to replete electrolytes and monitor. Wean off O2 as tolerated, guarded prognosis, continue empiric steroid. Follow clinically. 09/08/21; continue to replete and monitor potassium, wean off O2 as tolerated. Patient remains on 25 L high flow O2. Continue empiric steroid, follow clinically. 09/09/21; spiking temp, will order pancultures, repeat chest x-ray, guarded prognosis, remains on 25 L high flow O2, follow clinically 09/10; patient is afebrile, remains on high flow 25 L nasal cannula oxygen, wean as tolerated, patient already has home oxygen Wean aggressively as tolerated, if no improvement consider hospice 09/11; patient's urine cultures positive for gram-negative rods, will add Levaquin 750 mg IV daily, follow culture sensitivities and adjust as needed Patient is anxious, has intermittent panic episodes, continue Xanax, consult psych History Interval history: I seen and examined the patient at the bedside Patient's chart and medications reviewed Patient remains on high flow nasal cannula oxygen Complains of mild shortness of breath Hospitalist Physical - Constitutional Vitals: Temp Pulse Resp BP Pulse Ox 97.7 F 95 H 18 116/69 97 09/10/21 22:05 09/10/21 22:05 09/10/21 22:05 09/10/21 22:05 09/10/21 22:05 General appearance: Present: no acute distress, well-nourished, other (On high flow oxygen, more alert and awake) - EENT Eyes: Present: PERRL, EOM intact - Neck Neck: Present: supple, normal ROM - Respiratory Respiratory effort: normal Respiratory: bilateral: diminished, rhonchi, negative: rales, wheezing - Cardiovascular Rhythm: regular Heart Sounds: Present: S1 & S2 - Extremities Extremities: no ischemia, No edema - Abdominal General gastrointestinal: soft, non-tender, non-distended, normal bowel sounds - Integumentary Integumentary: Present: clear, warm - Psychiatric Psychiatric: appropriate mood/affect, cooperative - Neurologic Neurologic: moves all extremities Results - Labs CBC & Chem 7: 09/08/21 04:31 09/09/21 07:50 Labs: Laboratory Last Values WBC 8.2 K/mm3 (4.5-11.0) 09/08/21 04:31 RBC 4.99 M/mm3 (3.65-5.03) 09/08/21 04:31 Hgb 14.2 gm/dl (10.1-14.3) 09/08/21 04:31 Hct 44.9 % (30.3-42.9) H 09/08/21 04:31 MCV 90 fl (79-97) 09/08/21 04:31 MCH 28 pg (28-32) 09/08/21 04:31 MCHC 32 % (30-34) 09/08/21 04:31 RDW 17.2 % (13.2-15.2) H 09/08/21 04:31 Plt Count 178 K/mm3 (140-440) 09/08/21 04:31 Lymph % (Auto) 12.3 % (13.4-35.0) L 09/08/21 04:31 [place] % (Auto) 6.6 % (0.0-7.3) 09/08/21 04:31 Eos % (Auto) 0.3 % (0.0-4.3) 09/08/21 04:31 Baso % (Auto) 1.7 % (0.0-1.8) 09/08/21 04:31 Lymph # (Auto) 1.0 K/mm3 (1.2-5.4) L 09/08/21 04:31 [place] # (Auto) 0.5 K/mm3 (0.0-0.8) 09/08/21 04:31 Eos # (Auto) 0.0 K/mm3 (0.0-0.4) 09/08/21 04:31 Baso # (Auto) 0.1 K/mm3 (0.0-0.1) 09/08/21 04:31 Add Manual Diff Complete 09/03/21 06:05 Total Counted 100 09/03/21 06:05 Seg Neutrophils % 79.1 % (40.0-70.0) H 09/08/21 04:31 Seg Neuts % (Manual) 94.0 % (40.0-70.0) H 09/03/21 06:05 Lymphocytes % (Manual) 3.0 % (13.4-35.0) L 09/03/21 06:05 Monocytes % (Manual) 3.0 % (0.0-7.3) 09/03/21 06:05 Nucleated RBC % Not Reportable 09/03/21 06:05 Seg Neutrophils # 6.5 K/mm3 (1.8-7.7) 09/08/21 04:31 Seg Neutrophils # Man 7.3 K/mm3 (1.8-7.7) 09/03/21 06:05 Band Neutrophils # 0.0 K/mm3 09/03/21 06:05 Lymphocytes # (Manual) 0.2 K/mm3 (1.2-5.4) L 09/03/21 06:05 Abs React Lymphs (Man) 0.0 K/mm3 09/03/21 06:05 Monocytes # (Manual) 0.2 K/mm3 (0.0-0.8) 09/03/21 06:05 Eosinophils # (Manual) 0.0 K/mm3 (0.0-0.4) 09/03/21 06:05 Basophils # (Manual) 0.0 K/mm3 (0.0-0.1) 09/03/21 06:05 Metamyelocytes # 0.0 K/mm3 09/03/21 06:05 Myelocytes # 0.0 K/mm3 09/03/21 06:05 Promyelocytes # 0.0 K/mm3 09/03/21 06:05 Blast Cells # 0.0 K/mm3 09/03/21 06:05 WBC Morphology Not Reportable 09/03/21 06:05 Hypersegmented Neuts Not Reportable 09/03/21 06:05 Hyposegmented Neuts Not Reportable 09/03/21 06:05 Hypogranular Neuts Not Reportable 09/03/21 06:05 Smudge Cells Not Reportable 09/03/21 06:05 Toxic Granulation Not Reportable 09/03/21 06:05 Toxic Vacuolation Not Reportable 09/03/21 06:05 Dohle Bodies Not Reportable 09/03/21 06:05 Pelger-Huet Anomaly Not Reportable 09/03/21 06:05 Janelle Rods Not Reportable 09/03/21 06:05 Platelet Estimate Consistent w auto 09/03/21 06:05 Clumped Platelets Not Reportable 09/03/21 06:05 Plt Clumps, EDTA Not Reportable 09/03/21 06:05 Large Platelets Not Reportable 09/03/21 06:05 Giant Platelets Not Reportable 09/03/21 06:05 Platelet Satelliting Not Reportable 09/03/21 06:05 Plt Morphology Comment Not Reportable 09/03/21 06:05 RBC Morphology Normal 09/03/21 06:05 Dimorphic RBCs Not Reportable 09/03/21 06:05 Polychromasia Not Reportable 09/03/21 06:05 Hypochromasia Not Reportable 09/03/21 06:05 Poikilocytosis 1+ 09/03/21 06:05 Anisocytosis Not Reportable 09/03/21 06:05 Microcytosis Not Reportable 09/03/21 06:05 Macrocytosis Not Reportable 09/03/21 06:05 Spherocytes Not Reportable 09/03/21 06:05 Pappenheimer Bodies Not Reportable 09/03/21 06:05 Sickle Cells Not Reportable 09/03/21 06:05 Target Cells Not Reportable 09/03/21 06:05 Tear Drop Cells Not Reportable 09/03/21 06:05 Ovalocytes Not Reportable 09/03/21 06:05 Stomatocytes 3+ 09/03/21 06:05 Helmet Cells Not Reportable 09/03/21 06:05 [place] Bodies Not Reportable 09/03/21 06:05 [place] Rings Not Reportable 09/03/21 06:[address] Flat Cells Not Reportable 09/03/21 06:05 Bite Cells Not Reportable 09/03/21 06:05 Crenated Cell Not Reportable 09/03/21 06:05 Elliptocytes Not Reportable 09/03/21 06:05 Acanthocytes (Spur) Not Reportable 09/03/21 06:05 Rouleaux Not Reportable 09/03/21 06:05 Hemoglobin C Crystals Not Reportable 09/03/21 06:05 Schistocytes Not Reportable 09/03/21 06:05 Malaria parasites Not Reportable 09/03/21 06:05 Justin Bodies Not Reportable 09/03/21 06:05 Hem Pathologist Commnt No 09/03/21 06:05 D-Dimer 710.59 ng/mlDDU (0-234) H 08/31/21 19:32 ABG pH 7.240 pH Units (7.350-7.450) L 09/01/21 23:56 ABG pCO2 111.3 mm Hg 09/01/21 23:56 ABG pO2 198.0 mm Hg (80.0-90.0) H 09/01/21 23:56 ABG HCO3 46.6 mmol/L (20.0-26.0) H 09/01/21 23:56 ABG O2 Saturation 99.0 % (95.0-99.0) 09/01/21 23:56 ABG O2 Content 16.8 (0.0-44) 09/01/21 23:56 ABG Base Excess 14.8 mmol/L (-2.0-3.0) H 09/01/21 23:56 ABG Hemoglobin 12.0 gm/dl (12.0-16.0) 09/01/21 23:56 ABG Carboxyhemoglobin 1.6 % (0.0-5.0) 09/01/21 23:56 ABG Methemoglobin 0.6 % (0.0-1.5) 09/01/21 23:56 Oxyhemoglobin 96.8 % (95.0-99.0) 09/01/21 23:56 FiO2 60 % 09/01/21 23:56 Sodium 138 mmol/L (137-145) 09/09/21 07:50 Potassium 4.7 mmol/L (3.6-5.0) D 09/09/21 07:50 Chloride 88.8 mmol/L (98-107) L 09/09/21 07:50 Carbon Dioxide 39 mmol/L (22-30) H 09/09/21 07:50 Anion Gap 15 mmol/L 09/09/21 07:50 BUN 14 mg/dL (7-17) 09/09/21 07:50 Creatinine < 0.2 mg/dL (0.6-1.2) L 09/09/21 07:50 Estimated GFR > 60 ml/min 09/09/21 07:50 BUN/Creatinine Ratio 70 % 09/09/21 07:50 Glucose 197 mg/dL (65-100) H 09/09/21 07:50 POC Glucose 207 mg/dL (70-105) H 09/11/21 08:01 Calcium 8.8 mg/dL (8.4-10.2) 09/09/21 07:50 Magnesium 2.10 mg/dL (1.7-2.3) 09/08/21 04:31 Total Bilirubin 0.30 mg/dL (0.1-1.2) 09/03/21 06:05 AST 29 units/L (5-40) 09/03/21 06:05 ALT 71 units/L (7-56) H 09/03/21 06:05 Alkaline Phosphatase 82 units/L (35-129) 09/03/21 06:05 NT-Pro-B Natriuret Pep 524.1 pg/mL (0-450) H 08/31/21 19:32 Total Protein 7.0 g/dL (6.3-8.2) 09/03/21 06:05 Albumin 3.8 g/dL (3.9-5) L 09/03/21 06:05 Albumin/Globulin Ratio 1.2 % 09/03/21 06:05 HCG, Qual Negative (Negative) 08/31/21 19:32 Urine Color Yellow (Yellow) 09/10/21 07:00 Urine Turbidity Cloudy (Clear) 09/10/21 07:00 Urine pH 7.0 (5.0-7.0) 09/10/21 07:00 Ur Specific Shield[place] 1.022 (1.003-1.030) 09/10/21 07:00 Urine Protein <15 mg/dl mg/dL (Negative) 09/10/21 07:00 Urine Glucose (UA) >=500 mg/dL (Negative) 09/10/21 07:00 Urine Ketones Neg mg/dL (Negative) 09/10/21 07:00 Urine Blood Sm (Negative) 09/10/21 07:00 Urine Nitrite Neg (Negative) 09/10/21 07:00 Urine Bilirubin Neg (Negative) 09/10/21 07:00 Urine Urobilinogen < 2.0 mg/dL (<2.0) 09/10/21 07:00 Ur Leukocyte Esterase Mod (Negative) 09/10/21 07:00 Urine WBC (Auto) 24.0 /HPF (0.0-6.0) H 09/10/21 07:00 Urine RBC (Auto) 17.0 /HPF (0.0-6.0) 09/10/21 07:00 U Epithel Cells (Auto) 3.0 /HPF (0-13.0) 09/10/21 07:00 Urine Bacteria (Auto) 2+ /HPF (Negative) 09/10/21 07:00 Calcium Oxalate Crystal Few 09/10/21 07:00 Urine Mucus 1+ /HPF 09/10/21 07:00 Ur Yeast w Hyphae Few /HPF 09/10/21 07:00 Urine Yeast (Budding) Few /HPF 09/10/21 07:00 Microbiology: Microbiology 09/09/21 18:02 Peripheral/Venous Blood Culture - Preliminary NO GROWTH AFTER 24 HOURS 09/09/21 18:02 Peripheral/Venous Blood Culture - Preliminary NO GROWTH AFTER 24 HOURS Amos/IV: Voiding Method External Female Catheter Active Medications - Current Medications Current Medications: Generic Name Dose Route Start Last Admin Trade Name Freq PRN Reason Stop Dose Admin Acetaminophen 650 mg 09/01/21 01:25 09/10/21 22:33 Acetaminophen 325 Mg Tab PO 650 mg Q4H PRN Administration Pain MILD(1-3)/Fever >100.5/[place] Albuterol 2.5 mg 09/01/21 01:25 Albuterol 2.5 Mg/3 Ml Nebu IH Q3HRT PRN Shortness Of Breath Alprazolam 1 mg 09/01/21 01:38 09/10/21 22:24 Alprazolam 1 Mg Tab PO 1 mg BID PRN Administration Agitation Dextrose 50 ml 09/01/21 01:25 Dextrose 50% In Water (25gm) 50 Ml Syringe IV Q30MIN PRN Hypoglycemia Protocol Famotidine 20 mg 09/01/21 10:00 09/10/21 22:29 Famotidine 20 Mg Tab PO 20 mg BID TUTU Administration Heparin Sodium (Porcine) 5,000 unit 09/01/21 06:00 09/11/21 05:44 Heparin 5,000 Unit/1 Ml Vial SUB-Q 5,000 unit Q8HR TUTU Administration Insulin Glargine 10 units 09/08/21 22:00 09/10/21 22:26 Insulin Glargine 100 Units/Ml SUB-Q 10 units QHS TUTU Administration Insulin Human Lispro 0 unit 09/01/21 07:30 09/10/21 22:25 Insulin Lispro 100 Unit/Ml SUB-Q 3 unit ACHS TUTU Administration Protocol Methylprednisolone Sodium Succinate 60 mg 09/06/21 14:03 09/11/21 05:45 Methylprednisolone Sod Succinate 125 Mg/2 Ml Inj IV 60 mg Q8HR TUTU Administration Ondansetron HCl 4 mg 09/01/21 01:25 09/05/21 15:12 Ondansetron 4 Mg/2 Ml Inj IV 4 mg Q8H PRN Administration Nausea And Vomiting Sodium Chloride 10 ml 09/01/21 10:00 09/10/21 22:37 Sodium Chloride 0.9% 10 Ml Flush Syringe IV 10 ml BID TUTU Administration Sodium Chloride 10 ml 09/01/21 01:25 09/01/21 14:16 Sodium Chloride 0.9% 10 Ml Flush Syringe IV 10 ml PRN PRN Administration LINE FLUSH Nutrition/Malnutrition Assess - Dietary Evaluation Nutrition/Malnutrition Findings: Nutrition Notes Start: 09/01/21 12:25 Freq: Status: Active Protocol: Document 09/09/21 14:03 SAQIB (Rec: 09/09/21 14:18 SAQIB [id number]) Nutrition Notes Initial or Follow up Brief Note Current Diagnosis Diabetes,Respiratory Failure Other Pertinent Diagnosis Post COVID-19 Syndrome, hypercapnia, [place]. Current Diet Consistent Carbohydrates Diet (since B 09/06). Height 5 ft 2 in Weight 54 kg [place] Body Weight (kg) 50.00 BMI 21.7 Weight change and time frame No body weight change reported . Weight Status Appropriate Subjective/Other Information RD consult on dietary advancement, %PO tolerance and intake of meals. Pt's current %PO intake of meals is close to 75%, according to ADL notes. Percent of energy/protein needs met: Prescribed Consistent Carbohydrates Diet provides for energy/protein needs (2, 061 Kcal/91 g) during LOS. Current % PO Fair (50-74%) Nutrition Intervention Change Diet Order: Continue Consistent Carbohydrates Diet. Goal #1 Maintain body weight within +/ -3% of admission body weight during LOS. Goal #2 Reach and maintain acceptable chemistry lab values during LOS. Follow-Up By: 09/16/21 Additional Comments Continue monitoring food tolerance, %PO intake of meals , Hydration, and BM.
[2021-09-11] MEDS: INSULIN LISPRO 100 UNIT/ML SUB-Q SCH ×4 (09:22→23:09)
[2021-09-11] MEDS: FAMOTIDINE 20 MG TAB PO SCH ×2 (09:22→23:12)
[2021-09-11] MEDS: INSULIN GLARGINE 100 UNITS/ML SUB-Q SCH (23:07)
[2021-09-11] MEDS: ACETAMINOPHEN 325 MG TAB PO PRN (23:37)
[2021-09-11] MEDS: ALPRAZolam 1 MG TAB PO PRN (23:37)
[2021-09-12] MEDS: HEPARIN 5,000 UNIT/1 ML VIAL SUB-Q SCH ×3 (05:26→23:18)
[2021-09-12] MEDS: methylPREDNISolone Sod Succinate 125 MG/2 ML INJ IV SCH ×2 (05:27→14:05)
[2021-09-12] MEDS: INSULIN LISPRO 100 UNIT/ML SUB-Q SCH ×4 (07:30→23:10)
--- NOTE | 2021-09-12 09:01 | Progress Note ---
Assessment and Plan Assessment and plan: 50-year-old female patient was admitted with COVID-19 pneumonia severe hypoxic hypercapnic respiratory failure had a prolonged stay in the hospital for 3 to 4 months and was discharged on 08/28/2021 on home oxygen and long-term steroids and other supportive care, patient again was admitted on the stabilized and discharged on the . patient already has home oxygen and all the medications are needed. Patient readmitted 09/01/21 with acute hypoxic respiratory failure and altered level of consciousness, s/p BiPAP, chest x-ray gaseous distention of the stomach. Pulmonary following, patient also has generalized anxiety on Xanax. 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 Gomes PCR test is negative Severe hypoxic and hypercapnic respiratory failure, required BiPAP on admission Patient was on 10 L of nasal cannula oxygen/100% nonrebreather/BiPAP, currently on high flow O2 25 L X-ray chest show moderate gaseous distention of the stomach severe diffuse bilateral chronic parenchymal opacities that have not changed chest x-ray Patient was recently discharged on on home 3 L oxygen CTA chest; no CT evidence of PE, diffuse severe bilateral mixed interstitial and alveolar opacities CT head without contrast; there is 2 small 2 to 3 mm focus of calcification along the lateral left frontal lobe which appears to be incidental, Patient is receiving currently high-dose Solu-Medrol therapy, per pulmonary --Abdominal distention with ileus Pulmonary recommended NG tube placement with intermittent suction for gastric distention Repeat abdomen x-ray 09/03 showed no gaseous distention, now tolerating diet -- IDDM (insulin dependent diabetes mellitus) Continue home insulin and coverage Follow hemoglobin A1c, SSI as needed --[place] (generalized anxiety disorder) intermittent panic episodes Continue Xanax as necessary Psych consult --Hypokalemia, continue to replete and monitor BMP --DVT prophylaxis On Lovenox and GI prophylaxis Daily clinical course: 09/01/2021; on intermittent BiPAP, chest x-ray gaseous distention of stomach recommend, NG tube placement intermittent suction and supportive care Disposition monitor closely wean will oxygen;, 2 -4 to 5 L nasal cannula, and discharge when stable. Patient already has home oxygen 09/02: Remains hypoxic and hypercapnic, somnolent post Ativan, on high flow O2 30 to 40 L, high-dose Solu-Medrol and NG tube for gastric distention. wean FiO2 as tolerated and BiPAP as needed for the hypercapnia, recheck ABG. Discussed with the pulmonary and nursing staff. 09/03: Off BiPAP this morning, continue to follow serum glucose, patient on high-dose steroid, continue high flow O2 and wean off as tolerated. Repeat abdominal x-ray showed non significant normal bowel gas pattern. Will initiate on clear liquid diet, will monitor off NG tube. 09/04; continue to follow clinically, empiric steroid, wean off O2 as tolerated, patient remains on high flow O2. Will advance diet as tolerated. Continue to monitor serum blood glucose and adjust insulin doses accordingly. 09/05: Follow clinically, consistent carb diet, high-dose empiric steroid, wean off O2 as tolerated. Transfer out of intermediate care to [facility] [place] with telemetry. 09/06: Remains on high flow O2 25 L, continue to provide supportive care, wean off O2 as tolerated, adjust serum blood glucose with insulin, tolerating consistent carb diet. 09/07/21: Continue to replete electrolytes and monitor. Wean off O2 as tolerated, guarded prognosis, continue empiric steroid. Follow clinically. 09/08/21; continue to replete and monitor potassium, wean off O2 as tolerated. Patient remains on 25 L high flow O2. Continue empiric steroid, follow clinically. 09/09/21; spiking temp, will order pancultures, repeat chest x-ray, guarded prognosis, remains on 25 L high flow O2, follow clinically 09/10; patient is afebrile, remains on high flow 25 L nasal cannula oxygen, wean as tolerated, patient already has home oxygen Wean aggressively as tolerated, if no improvement consider hospice 09/11; patient's urine cultures positive for gram-negative rods, will add Levaquin 750 mg IV daily, follow culture sensitivities and adjust as needed Patient is anxious, has intermittent panic episodes, continue Xanax, consult psych 09/12; urine cultures positive for E. coli, sensitivities include Levaquin, remains on high flow nasal cannula oxygen, wean as tolerated Consults and recommendations noted and appreciated History Interval history: I have seen and examined the patient at the bedside Patient's chart and medications reviewed Remains on high flow nasal cannula oxygen Slightly agitated Hospitalist Physical - Constitutional Vitals: Temp Pulse Resp BP Pulse Ox 97.8 F 87 20 112/73 95 09/12/21 05:14 09/12/21 05:14 09/12/21 05:14 09/12/21 05:14 09/12/21 05:14 General appearance: Present: mild distress, well-nourished, other (On high flow oxygen, more alert and awake) - EENT Eyes: Present: PERRL, EOM intact - Neck Neck: Present: supple, normal ROM - Respiratory Respiratory effort: normal Respiratory: bilateral: diminished, negative: rales, rhonchi - Cardiovascular Rhythm: regular Heart Sounds: Present: S1 & S2 - Extremities Extremities: no ischemia, No edema - Abdominal General gastrointestinal: soft, non-tender, non-distended, normal bowel sounds - Integumentary Integumentary: Present: clear, warm - Psychiatric Psychiatric: appropriate mood/affect, cooperative - Neurologic Neurologic: moves all extremities Results - Labs CBC & Chem 7: 09/08/21 04:31 09/09/21 07:50 Labs: Laboratory Last Values WBC 8.2 K/mm3 (4.5-11.0) 09/08/21 04:31 RBC 4.99 M/mm3 (3.65-5.03) 09/08/21 04:31 Hgb 14.2 gm/dl (10.1-14.3) 09/08/21 04:31 Hct 44.9 % (30.3-42.9) H 09/08/21 04:31 MCV 90 fl (79-97) 09/08/21 04:31 MCH 28 pg (28-32) 09/08/21 04:31 MCHC 32 % (30-34) 09/08/21 04:31 RDW 17.2 % (13.2-15.2) H 09/08/21 04:31 Plt Count 178 K/mm3 (140-440) 09/08/21 04:31 Lymph % (Auto) 12.3 % (13.4-35.0) L 09/08/21 04:31 [place] % (Auto) 6.6 % (0.0-7.3) 09/08/21 04:31 Eos % (Auto) 0.3 % (0.0-4.3) 09/08/21 04:31 Baso % (Auto) 1.7 % (0.0-1.8) 09/08/21 04:31 Lymph # (Auto) 1.0 K/mm3 (1.2-5.4) L 09/08/21 04:31 [place] # (Auto) 0.5 K/mm3 (0.0-0.8) 09/08/21 04:31 Eos # (Auto) 0.0 K/mm3 (0.0-0.4) 09/08/21 04:31 Baso # (Auto) 0.1 K/mm3 (0.0-0.1) 09/08/21 04:31 Add Manual Diff Complete 09/03/21 06:05 Total Counted 100 09/03/21 06:05 Seg Neutrophils % 79.1 % (40.0-70.0) H 09/08/21 04:31 Seg Neuts % (Manual) 94.0 % (40.0-70.0) H 09/03/21 06:05 Lymphocytes % (Manual) 3.0 % (13.4-35.0) L 09/03/21 06:05 Monocytes % (Manual) 3.0 % (0.0-7.3) 09/03/21 06:05 Nucleated RBC % Not Reportable 09/03/21 06:05 Seg Neutrophils # 6.5 K/mm3 (1.8-7.7) 09/08/21 04:31 Seg Neutrophils # Man 7.3 K/mm3 (1.8-7.7) 09/03/21 06:05 Band Neutrophils # 0.0 K/mm3 09/03/21 06:05 Lymphocytes # (Manual) 0.2 K/mm3 (1.2-5.4) L 09/03/21 06:05 Abs React Lymphs (Man) 0.0 K/mm3 09/03/21 06:05 Monocytes # (Manual) 0.2 K/mm3 (0.0-0.8) 09/03/21 06:05 Eosinophils # (Manual) 0.0 K/mm3 (0.0-0.4) 09/03/21 06:05 Basophils # (Manual) 0.0 K/mm3 (0.0-0.1) 09/03/21 06:05 Metamyelocytes # 0.0 K/mm3 09/03/21 06:05 Myelocytes # 0.0 K/mm3 09/03/21 06:05 Promyelocytes # 0.0 K/mm3 09/03/21 06:05 Blast Cells # 0.0 K/mm3 09/03/21 06:05 WBC Morphology Not Reportable 09/03/21 06:05 Hypersegmented Neuts Not Reportable 09/03/21 06:05 Hyposegmented Neuts Not Reportable 09/03/21 06:05 Hypogranular Neuts Not Reportable 09/03/21 06:05 Smudge Cells Not Reportable 09/03/21 06:05 Toxic Granulation Not Reportable 09/03/21 06:05 Toxic Vacuolation Not Reportable 09/03/21 06:05 Dohle Bodies Not Reportable 09/03/21 06:05 Pelger-Huet Anomaly Not Reportable 09/03/21 06:05 Janelle Rods Not Reportable 09/03/21 06:05 Platelet Estimate Consistent w auto 09/03/21 06:05 Clumped Platelets Not Reportable 09/03/21 06:05 Plt Clumps, EDTA Not Reportable 09/03/21 06:05 Large Platelets Not Reportable 09/03/21 06:05 Giant Platelets Not Reportable 09/03/21 06:05 Platelet Satelliting Not Reportable 09/03/21 06:05 Plt Morphology Comment Not Reportable 09/03/21 06:05 RBC Morphology Normal 09/03/21 06:05 Dimorphic RBCs Not Reportable 09/03/21 06:05 Polychromasia Not Reportable 09/03/21 06:05 Hypochromasia Not Reportable 09/03/21 06:05 Poikilocytosis 1+ 09/03/21 06:05 Anisocytosis Not Reportable 09/03/21 06:05 Microcytosis Not Reportable 09/03/21 06:05 Macrocytosis Not Reportable 09/03/21 06:05 Spherocytes Not Reportable 09/03/21 06:05 Pappenheimer Bodies Not Reportable 09/03/21 06:05 Sickle Cells Not Reportable 09/03/21 06:05 Target Cells Not Reportable 09/03/21 06:05 Tear Drop Cells Not Reportable 09/03/21 06:05 Ovalocytes Not Reportable 09/03/21 06:05 Stomatocytes 3+ 09/03/21 06:05 Helmet Cells Not Reportable 09/03/21 06:05 Ahuja-Henderson Bodies Not Reportable 09/03/21 06:05 [place] Rings Not Reportable 09/03/21 06:05 [place] Cells Not Reportable 09/03/21 06:05 Bite Cells Not Reportable 09/03/21 06:05 Crenated Cell Not Reportable 09/03/21 06:05 Elliptocytes Not Reportable 09/03/21 06:05 Acanthocytes (Spur) Not Reportable 09/03/21 06:05 Rouleaux Not Reportable 09/03/21 06:05 Hemoglobin C Crystals Not Reportable 09/03/21 06:05 Schistocytes Not Reportable 09/03/21 06:05 Malaria parasites Not Reportable 09/03/21 06:05 Justin Bodies Not Reportable 09/03/21 06:05 Hem Pathologist Commnt No 09/03/21 06:05 D-Dimer 710.59 ng/mlDDU (0-234) H 08/31/21 19:32 ABG pH 7.240 pH Units (7.350-7.450) L 09/01/21 23:56 ABG pCO2 111.3 mm Hg 09/01/21 23:56 ABG pO2 198.0 mm Hg (80.0-90.0) H 09/01/21 23:56 ABG HCO3 46.6 mmol/L (20.0-26.0) H 09/01/21 23:56 ABG O2 Saturation 99.0 % (95.0-99.0) 09/01/21 23:56 ABG O2 Content 16.8 (0.0-44) 09/01/21 23:56 ABG Base Excess 14.8 mmol/L (-2.0-3.0) H 09/01/21 23:56 ABG Hemoglobin 12.0 gm/dl (12.0-16.0) 09/01/21 23:56 ABG Carboxyhemoglobin 1.6 % (0.0-5.0) 09/01/21 23:56 ABG Methemoglobin 0.6 % (0.0-1.5) 09/01/21 23:56 Oxyhemoglobin 96.8 % (95.0-99.0) 09/01/21 23:56 FiO2 60 % 09/01/21 23:56 Sodium 138 mmol/L (137-145) 09/09/21 07:50 Potassium 4.7 mmol/L (3.6-5.0) D 09/09/21 07:50 Chloride 88.8 mmol/L (98-107) L 09/09/21 07:50 Carbon Dioxide 39 mmol/L (22-30) H 09/09/21 07:50 Anion Gap 15 mmol/L 09/09/21 07:50 BUN 14 mg/dL (7-17) 09/09/21 07:50 Creatinine < 0.2 mg/dL (0.6-1.2) L 09/09/21 07:50 Estimated GFR > 60 ml/min 09/09/21 07:50 BUN/Creatinine Ratio 70 % 09/09/21 07:50 Glucose 197 mg/dL (65-100) H 09/09/21 07:50 POC Glucose 222 mg/dL (70-105) H 09/12/21 08:38 Calcium 8.8 mg/dL (8.4-10.2) 09/09/21 07:50 Magnesium 2.10 mg/dL (1.7-2.3) 09/08/21 04:31 Total Bilirubin 0.30 mg/dL (0.1-1.2) 09/03/21 06:05 AST 29 units/L (5-40) 09/03/21 06:05 ALT 71 units/L (7-56) H 09/03/21 06:05 Alkaline Phosphatase 82 units/L (35-129) 09/03/21 06:05 NT-Pro-B Natriuret Pep 524.1 pg/mL (0-450) H 08/31/21 19:32 Total Protein 7.0 g/dL (6.3-8.2) 09/03/21 06:05 Albumin 3.8 g/dL (3.9-5) L 09/03/21 06:05 Albumin/Globulin Ratio 1.2 % 09/03/21 06:05 HCG, Qual Negative (Negative) 08/31/21 19:32 Urine Color Yellow (Yellow) 09/10/21 07:00 Urine Turbidity Cloudy (Clear) 09/10/21 07:00 Urine pH 7.0 (5.0-7.0) 09/10/21 07:00 Ur Specific [place] 1.022 (1.003-1.030) 09/10/21 07:00 Urine Protein <15 mg/dl mg/dL (Negative) 09/10/21 07:00 Urine Glucose (UA) >=500 mg/dL (Negative) 09/10/21 07:00 Urine Ketones Neg mg/dL (Negative) 09/10/21 07:00 Urine Blood Sm (Negative) 09/10/21 07:00 Urine Nitrite Neg (Negative) 09/10/21 07:00 Urine Bilirubin Neg (Negative) 09/10/21 07:00 Urine Urobilinogen < 2.0 mg/dL (<2.0) 09/10/21 07:00 Ur Leukocyte Esterase Mod (Negative) 09/10/21 07:00 Urine WBC (Auto) 24.0 /HPF (0.0-6.0) H 09/10/21 07:00 Urine RBC (Auto) 17.0 /HPF (0.0-6.0) 09/10/21 07:00 U Epithel Cells (Auto) 3.0 /HPF (0-13.0) 09/10/21 07:00 Urine Bacteria (Auto) 2+ /HPF (Negative) 09/10/21 07:00 Calcium Oxalate Crystal Few 09/10/21 07:00 Urine Mucus 1+ /HPF 09/10/21 07:00 Ur Yeast w [place]pha[place] Few /HPF 09/10/21 07:00 Urine Yeast (Budding) Few /HPF 09/10/21 07:00 Microbiology: Microbiology 09/09/21 18:02 Peripheral/Venous Blood Culture - Preliminary NO GROWTH AFTER 48 HOURS 09/09/21 18:02 Peripheral/Venous Blood Culture - Preliminary NO GROWTH AFTER 48 HOURS 09/10/21 07:00 Urine,Clean Catch Urine Culture - Preliminary Gram Negative Nicolas Amos/IV: Voiding Method External Female Catheter Active Medications - Current Medications Current Medications: Generic Name Dose Route Start Last Admin Trade Name Freq PRN Reason Stop Dose Admin Acetaminophen 650 mg 09/01/21 01:25 09/11/21 23:37 Acetaminophen 325 Mg Tab PO 650 mg Q4H PRN Administration Pain MILD(1-3)/Fever >100.5/[place] Albuterol 2.5 mg 09/01/21 01:25 Albuterol 2.5 Mg/3 Ml Nebu IH Q3HRT PRN Shortness Of Breath Alprazolam 1 mg 09/01/21 01:38 09/11/21 23:37 Alprazolam 1 Mg Tab PO 1 mg BID PRN Administration Agitation Dextrose 50 ml 09/01/21 01:25 Dextrose 50% In Water (25gm) 50 Ml Syringe IV Q30MIN PRN Hypoglycemia Protocol Famotidine 20 mg 09/01/21 10:00 09/11/21 23:12 Famotidine 20 Mg Tab PO 20 mg BID TUTU Administration Heparin Sodium (Porcine) 5,000 unit 09/01/21 06:00 09/12/21 05:26 Heparin 5,000 Unit/1 Ml Vial SUB-Q 5,000 unit Q8HR TUTU Administration Insulin Glargine 10 units 09/08/21 22:00 09/11/21 23:07 Insulin Glargine 100 Units/Ml SUB-Q 10 units QHS TUTU Administration Insulin Human Lispro 0 unit 09/01/21 07:30 09/11/21 23:09 Insulin Lispro 100 Unit/Ml SUB-Q 2 unit ACHS TUTU Administration Protocol Methylprednisolone Sodium Succinate 60 mg 09/06/21 14:03 09/12/21 05:27 Methylprednisolone Sod Succinate 125 Mg/2 Ml Inj IV 60 mg Q8HR TUTU Administration Ondansetron HCl 4 mg 09/01/21 01:25 09/05/21 15:12 Ondansetron 4 Mg/2 Ml Inj IV 4 mg Q8H PRN Administration Nausea And Vomiting Sodium Chloride 10 ml 09/01/21 10:00 09/11/21 23:11 Sodium Chloride 0.9% 10 Ml Flush Syringe IV 10 ml BID TUTU Administration Sodium Chloride 10 ml 09/01/21 01:25 09/01/21 14:16 Sodium Chloride 0.9% 10 Ml Flush Syringe IV 10 ml PRN PRN Administration LINE FLUSH Nutrition/Malnutrition Assess - Dietary Evaluation Nutrition/Malnutrition Findings: Nutrition Notes Start: 09/01/21 12:25 Freq: Status: Active Protocol: Document 09/09/21 14:03 SAQIB (Rec: 09/09/21 14:18 SAQIB [id number]) Nutrition Notes Initial or Follow up Brief Note Current Diagnosis Diabetes,Respiratory Failure Other Pertinent Diagnosis Post COVID-19 Syndrome, hypercapnia, [place]. Current Diet Consistent Carbohydrates Diet (since B 09/06). Height 5 ft 2 in Weight 54 kg [place] Body Weight (kg) 50.00 BMI 21.7 Weight change and time frame No body weight change reported . Weight Status Appropriate Subjective/Other Information RD consult on dietary advancement, %PO tolerance and intake of meals. Pt's current %PO intake of meals is close to 75%, according to ADL notes. Percent of energy/protein needs met: Prescribed Consistent Carbohydrates Diet provides for energy/protein needs (2, 061 Kcal/91 g) during LOS. Current % PO Fair (50-74%) Nutrition Intervention Change Diet Order: Continue Consistent Carbohydrates Diet. Goal #1 Maintain body weight within +/ -3% of admission body weight during LOS. Goal #2 Reach and maintain acceptable chemistry lab values during LOS. Follow-Up By: 09/16/21 Additional Comments Continue monitoring food tolerance, %PO intake of meals , Hydration, and BM.
[2021-09-12] MEDS: FAMOTIDINE 20 MG TAB PO SCH ×2 (10:33→23:18)
--- NOTE | 2021-09-12 14:40 | Progress Note ---
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 Will drop steroids to 40q8 09/10/21: Please be more aggressive with oxygen weaning. Will consider weaning steroids again or Thursday. 09/08/21: Continue steroids at current dosing. Wean Fio2 for sats >88%. 09/06/21: Will drop steroids to 60 q8 starting now. 09/04/21: Will start to taper steroids today. Continue to wean FiO2 as tolerated. Anxiety control. High dose steroids Anxiety therapy Wean FiO2 as tolerated ABG not indicated currently as she is sleepy from IV ativan administered because she is NPO and could not get her xanax Subjective Date of service: 09/12/21 Interval history: no acute events. Still on HFNC Objective Vital Signs - 12hr 09/12/21 09/12/21 09/12/21 03:00 05:14 10:00 Temperature 97.8 F Pulse Rate 87 Respiratory 20 Rate Blood Pressure 112/73 O2 Sat by Pulse 96 95 95 Oximetry 09/12/21 11:58 Temperature Pulse Rate Respiratory Rate Blood Pressure O2 Sat by Pulse 92 Oximetry CBC and BMP: 09/08/21 04:31 09/09/21 07:50 ABG, PT/INR, D-dimer: ABG ABG pH 7.240 pH Units (7.350-7.450) L 09/01/21 23:56 ABG pCO2 111.3 mm Hg 09/01/21 23:56 ABG pO2 198.0 mm Hg (80.0-90.0) H 09/01/21 23:56 ABG O2 Saturation 99.0 % (95.0-99.0) 09/01/21 23:56 PT/INR, D-dimer D-Dimer 710.59 ng/mlDDU (0-234) H 08/31/21 19:32 Abnormal lab findings: Abnormal Labs 08/31/21 08/31/21 08/31/21 19:32 19:32 19:32 Hct RDW 16.4 H Lymph % (Auto) [place] % (Auto) 9.0 H Lymph # (Auto) [place] # (Auto) 1.0 H Seg Neutrophils % 76.2 H Seg Neuts % (Manual) Lymphocytes % (Manual) Seg Neutrophils # 8.3 H Lymphocytes # (Manual) D-Dimer 710.59 H ABG pH ABG pO2 ABG HCO3 ABG O2 Saturation ABG Base Excess Sodium Potassium Chloride 92.7 L Carbon Dioxide 36 H BUN Creatinine 0.4 L D Glucose 249 H POC Glucose Calcium ALT NT-Pro-B Natriuret Pep Albumin Urine WBC (Auto) 08/31/21 08/31/21 09/01/21 19:32 21:05 09:24 Hct RDW Lymph % (Auto) [place] % (Auto) Lymph # (Auto) [place] # (Auto) Seg Neutrophils % Seg Neuts % (Manual) Lymphocytes % (Manual) Seg Neutrophils # Lymphocytes # (Manual) D-Dimer ABG pH 7.244 L ABG pO2 307.7 H ABG HCO3 47.9 H ABG O2 Saturation 99.4 H ABG Base Excess 16.0 H Sodium Potassium Chloride Carbon Dioxide BUN Creatinine Glucose POC Glucose 106 H Calcium ALT NT-Pro-B Natriuret Pep 524.1 H Albumin Urine WBC (Auto) 09/01/21 09/01/21 09/01/21 13:39 16:22 23:56 Hct RDW Lymph % (Auto) [place] % (Auto) Lymph # (Auto) [place] # (Auto) Seg Neutrophils % Seg Neuts % (Manual) Lymphocytes % (Manual) Seg Neutrophils # Lymphocytes # (Manual) D-Dimer ABG pH 7.240 L ABG pO2 198.0 H ABG HCO3 46.6 H ABG O2 Saturation ABG Base Excess 14.8 H Sodium Potassium Chloride Carbon Dioxide BUN Creatinine Glucose POC Glucose 154 H 188 H Calcium ALT NT-Pro-B Natriuret Pep Albumin Urine WBC (Auto) 09/02/21 09/02/21 09/02/21 01:49 07:22 07:22 Hct RDW 16.4 H Lymph % (Auto) [place] % (Auto) Lymph # (Auto) [place] # (Auto) Seg Neutrophils % Seg Neuts % (Manual) 97.0 H Lymphocytes % (Manual) 2.0 L Seg Neutrophils # Lymphocytes # (Manual) 0.1 L D-Dimer ABG pH ABG pO2 ABG HCO3 ABG O2 Saturation ABG Base Excess Sodium Potassium Chloride 82.7 L Carbon Dioxide 41 H* BUN 21 H Creatinine 0.3 L Glucose 198 H POC Glucose 132 H Calcium ALT NT-Pro-B Natriuret Pep Albumin Urine WBC (Auto) 09/02/21 09/02/21 09/02/21 08:29 11:27 16:59 Hct RDW Lymph % (Auto) [place] % (Auto) Lymph # (Auto) [place] # (Auto) Seg Neutrophils % Seg Neuts % (Manual) Lymphocytes % (Manual) Seg Neutrophils # Lymphocytes # (Manual) D-Dimer ABG pH ABG pO2 ABG HCO3 ABG O2 Saturation ABG Base Excess Sodium Potassium Chloride Carbon Dioxide BUN Creatinine Glucose POC Glucose 201 H 232 H 118 H Calcium ALT NT-Pro-B Natriuret Pep Albumin Urine WBC (Auto) 09/02/21 09/03/21 09/03/21 22:08 06:05 06:05 Hct RDW 16.5 H Lymph % (Auto) [place] % (Auto) Lymph # (Auto) [place] # (Auto) Seg Neutrophils % Seg Neuts % (Manual) 94.0 H Lymphocytes % (Manual) 3.0 L Seg Neutrophils # Lymphocytes # (Manual) 0.2 L D-Dimer ABG pH ABG pO2 ABG HCO3 ABG O2 Saturation ABG Base Excess Sodium Potassium Chloride 79.3 L Carbon Dioxide 52 H* D BUN 27 H Creatinine 0.2 L Glucose 228 H POC Glucose 241 H Calcium 10.4 H ALT 71 H NT-Pro-B Natriuret Pep Albumin 3.8 L Urine WBC (Auto) 09/03/21 09/03/21 09/03/21 07:53 11:37 15:52 Hct RDW Lymph % (Auto) [place] % (Auto) Lymph # (Auto) [place] # (Auto) Seg Neutrophils % Seg Neuts % (Manual) Lymphocytes % (Manual) Seg Neutrophils # Lymphocytes # (Manual) D-Dimer ABG pH ABG pO2 ABG HCO3 ABG O2 Saturation ABG Base Excess Sodium Potassium Chloride Carbon Dioxide BUN Creatinine Glucose POC Glucose 241 H 202 H 284 H Calcium ALT NT-Pro-B Natriuret Pep Albumin Urine WBC (Auto) 09/03/21 09/04/21 09/04/21 22:07 08:33 11:16 Hct RDW Lymph % (Auto) [place] % (Auto) Lymph # (Auto) [place] # (Auto) Seg Neutrophils % Seg Neuts % (Manual) Lymphocytes % (Manual) Seg Neutrophils # Lymphocytes # (Manual) D-Dimer ABG pH ABG pO2 ABG HCO3 ABG O2 Saturation ABG Base Excess Sodium Potassium Chloride Carbon Dioxide BUN Creatinine Glucose POC Glucose 311 H 232 H 356 H Calcium ALT NT-Pro-B Natriuret Pep Albumin Urine WBC (Auto) 09/04/21 09/04/21 09/05/21 17:10 23:05 08:08 Hct RDW Lymph % (Auto) [place] % (Auto) Lymph # (Auto) [place] # (Auto) Seg Neutrophils % Seg Neuts % (Manual) Lymphocytes % (Manual) Seg Neutrophils # Lymphocytes # (Manual) D-Dimer ABG pH ABG pO2 ABG HCO3 ABG O2 Saturation ABG Base Excess Sodium Potassium Chloride Carbon Dioxide BUN Creatinine Glucose POC Glucose 328 H 150 H 342 H Calcium ALT NT-Pro-B Natriuret Pep Albumin Urine WBC (Auto) 09/05/21 09/05/21 09/05/21 11:04 13:23 13:23 Hct RDW 17.1 H Lymph % (Auto) [place] % (Auto) Lymph # (Auto) [place] # (Auto) Seg Neutrophils % Seg Neuts % (Manual) Lymphocytes % (Manual) Seg Neutrophils # Lymphocytes # (Manual) D-Dimer ABG pH ABG pO2 ABG HCO3 ABG O2 Saturation ABG Base Excess Sodium Potassium 2.6 L* D Chloride 74.4 L Carbon Dioxide 46 H* BUN Creatinine 0.3 L Glucose 389 H POC Glucose 395 H Calcium ALT NT-Pro-B Natriuret Pep Albumin Urine WBC (Auto) 09/05/21 09/05/21 09/06/21 16:22 21:09 08:02 Hct RDW Lymph % (Auto) [place] % (Auto) Lymph # (Auto) [place] # (Auto) Seg Neutrophils % Seg Neuts % (Manual) Lymphocytes % (Manual) Seg Neutrophils # Lymphocytes # (Manual) D-Dimer ABG pH ABG pO2 ABG HCO3 ABG O2 Saturation ABG Base Excess Sodium Potassium Chloride Carbon Dioxide BUN Creatinine Glucose POC Glucose 195 H 243 H 119 H Calcium ALT NT-Pro-B Natriuret Pep Albumin Urine WBC (Auto) 09/06/21 09/06/21 09/06/21 11:00 11:19 16:06 Hct RDW Lymph % (Auto) [place] % (Auto) Lymph # (Auto) [place] # (Auto) Seg Neutrophils % Seg Neuts % (Manual) Lymphocytes % (Manual) Seg Neutrophils # Lymphocytes # (Manual) D-Dimer ABG pH ABG pO2 ABG HCO3 ABG O2 Saturation ABG Base Excess Sodium 136 L Potassium Chloride 78.3 L Carbon Dioxide 47 H* BUN Creatinine 0.3 L Glucose 354 H POC Glucose 309 H 381 H Calcium ALT NT-Pro-B Natriuret Pep Albumin Urine WBC (Auto) 09/06/21 09/07/21 09/07/21 22:25 11:11 16:50 Hct RDW Lymph % (Auto) [place] % (Auto) Lymph # (Auto) [place] # (Auto) Seg Neutrophils % Seg Neuts % (Manual) Lymphocytes % (Manual) Seg Neutrophils # Lymphocytes # (Manual) D-Dimer ABG pH ABG pO2 ABG HCO3 ABG O2 Saturation ABG Base Excess Sodium Potassium Chloride Carbon Dioxide BUN Creatinine Glucose POC Glucose 217 H 442 H 222 H Calcium ALT NT-Pro-B Natriuret Pep Albumin Urine WBC (Auto) 09/07/21 09/08/21 09/08/21 21:52 04:31 04:31 Hct 44.9 H RDW 17.2 H Lymph % (Auto) 12.3 L [place] % (Auto) Lymph # (Auto) 1.0 L [place] # (Auto) Seg Neutrophils % 79.1 H Seg Neuts % (Manual) Lymphocytes % (Manual) Seg Neutrophils # Lymphocytes # (Manual) D-Dimer ABG pH ABG pO2 ABG HCO3 ABG O2 Saturation ABG Base Excess Sodium Potassium 2.8 L* D Chloride 87.6 L Carbon Dioxide 45 H* BUN Creatinine 0.2 L Glucose 46 L POC Glucose 360 H Calcium ALT NT-Pro-B Natriuret Pep Albumin Urine WBC (Auto) 09/08/21 09/08/21 09/08/21 05:25 05:53 11:50 Hct RDW Lymph % (Auto) [place] % (Auto) Lymph # (Auto) [place] # (Auto) Seg Neutrophils % Seg Neuts % (Manual) Lymphocytes % (Manual) Seg Neutrophils # Lymphocytes # (Manual) D-Dimer ABG pH ABG pO2 ABG HCO3 ABG O2 Saturation ABG Base Excess Sodium Potassium Chloride Carbon Dioxide BUN Creatinine Glucose POC Glucose 39 L 64 L 280 H Calcium ALT NT-Pro-B Natriuret Pep Albumin Urine WBC (Auto) 09/08/21 09/08/21 09/09/21 16:20 21:32 07:20 Hct RDW Lymph % (Auto) [place] % (Auto) Lymph # (Auto) [place] # (Auto) Seg Neutrophils % Seg Neuts % (Manual) Lymphocytes % (Manual) Seg Neutrophils # Lymphocytes # (Manual) D-Dimer ABG pH ABG pO2 ABG HCO3 ABG O2 Saturation ABG Base Excess Sodium Potassium Chloride Carbon Dioxide BUN Creatinine Glucose POC Glucose 256 H 203 H 194 H Calcium ALT NT-Pro-B Natriuret Pep Albumin Urine WBC (Auto) 09/09/21 09/09/21 09/09/21 07:50 11:13 16:20 Hct RDW Lymph % (Auto) [place] % (Auto) Lymph # (Auto) [place] # (Auto) Seg Neutrophils % Seg Neuts % (Manual) Lymphocytes % (Manual) Seg Neutrophils # Lymphocytes # (Manual) D-Dimer ABG pH ABG pO2 ABG HCO3 ABG O2 Saturation ABG Base Excess Sodium Potassium Chloride 88.8 L Carbon Dioxide 39 H BUN Creatinine < 0.2 L Glucose 197 H POC Glucose 258 H 231 H Calcium ALT NT-Pro-B Natriuret Pep Albumin Urine WBC (Auto) 09/09/21 09/10/21 09/10/21 22:17 07:00 08:02 Hct RDW Lymph % (Auto) [place] % (Auto) Lymph # (Auto) [place] # (Auto) Seg Neutrophils % Seg Neuts % (Manual) Lymphocytes % (Manual) Seg Neutrophils # Lymphocytes # (Manual) D-Dimer ABG pH ABG pO2 ABG HCO3 ABG O2 Saturation ABG Base Excess Sodium Potassium Chloride Carbon Dioxide BUN Creatinine Glucose POC Glucose 222 H 213 H Calcium ALT NT-Pro-B Natriuret Pep Albumin Urine WBC (Auto) 24.0 H 09/10/21 09/10/21 09/10/21 11:22 15:49 22:08 Hct RDW Lymph % (Auto) [place] % (Auto) Lymph # (Auto) [place] # (Auto) Seg Neutrophils % Seg Neuts % (Manual) Lymphocytes % (Manual) Seg Neutrophils # Lymphocytes # (Manual) D-Dimer ABG pH ABG pO2 ABG HCO3 ABG O2 Saturation ABG Base Excess Sodium Potassium Chloride Carbon Dioxide BUN Creatinine Glucose POC Glucose 241 H 201 H 212 H Calcium ALT NT-Pro-B Natriuret Pep Albumin Urine WBC (Auto) 09/11/21 09/11/21 09/11/21 08:01 11:21 16:41 Hct RDW Lymph % (Auto) [place] % (Auto) Lymph # (Auto) [place] # (Auto) Seg Neutrophils % Seg Neuts % (Manual) Lymphocytes % (Manual) Seg Neutrophils # Lymphocytes # (Manual) D-Dimer ABG pH ABG pO2 ABG HCO3 ABG O2 Saturation ABG Base Excess Sodium Potassium Chloride Carbon Dioxide BUN Creatinine Glucose POC Glucose 207 H 265 H 234 H Calcium ALT NT-Pro-B Natriuret Pep Albumin Urine WBC (Auto) 09/11/21 09/12/21 09/12/21 22:09 08:38 11:28 Hct RDW Lymph % (Auto) [place] % (Auto) Lymph # (Auto) [place] # (Auto) Seg Neutrophils % Seg Neuts % (Manual) Lymphocytes % (Manual) Seg Neutrophils # Lymphocytes # (Manual) D-Dimer ABG pH ABG pO2 ABG HCO3 ABG O2 Saturation ABG Base Excess Sodium Potassium Chloride Carbon Dioxide BUN Creatinine Glucose POC Glucose 293 H 222 H 326 H Calcium ALT NT-Pro-B Natriuret Pep Albumin Urine WBC (Auto)
[2021-09-12] MEDS ORDERED: methylPREDNISolone Sod Succinate 125 MG/2 ML INJ IV SCH (14:41)
[2021-09-12] MEDS: levoFLOXacin 250 MG TAB PO SCH (15:35)
--- NOTE | 2021-09-12 15:39 | Consultation ---
History of Present Illness - Reason for Consult Consult date: 09/12/21 Reason for consult: mental health evalution - Chief Complaint Chief complaint: Dyspnea Respiratory distress - History of Present Psychiatric Illness The patient is a 50 year old female with no psychiatric history. This interview was conducted via an physician compensation analyst #[id number]. The patient is alert and oriented x2 and presents with constricted affect. The patient states she feels sad staying in the hospital. She denies being depressed or having excessive anxiousness. The patient denies any current suicidal/homicidal ideation and denies hallucinations. PSYCH HISTORY Diagnoses: Denies Suicide attempts or Self-harm behavior: Denies Prior psychiatric hospitalizations: Denies Substance Abuse history: Denies Previous psychiatric medications tried: Denies Outpatient treatment: Denies PAST MEDICAL HISTORY: Family Psychiatric History: None reported or documented SOCIAL HISTORY Marital Status: Living Arrangements: Lives with and daughter Employment Status: Employed Access to guns/weapons: none reported Education:unknown History of Abuse: none Legal History: none REVIEW OF SYSTEMS ROS cannot be reliably obtained from the patient due to her mental status MENTAL STATUS EXAMINATION General Appearance and Behavior: Age appropriate, fair hygiene, wearing appropriate clothes,, poor eye contact, cooperative polite with questioning. Cooperation: Participating Mood:"ok" Affect and affective range: constricted Thought Process: Goal directed Thought Content:Reality oriented Speech: Normal volume, Regular rate and rhythm, Intellectual Functioning: Average Suicidal Ideation: Denies Homicidal Ideation:Denies Hallucination:aDenies Impulse Control: Impaired Insight and Judgment: Limited insight and good judgment, Memory: Normal Attention: Distractible, Orientation: Alert, oriented Assessment and Plan - Psychiatric problem (1) R/O Unspecified anxiety Current Visit: Yes Status: Acute Treatment Plan I agree with the current treatment plan. MEDICATIONS: Risks, benefits and alternatives of medications discussed with the patient, questions answered and consent obtained from patient. PSYCHOTHERAPY: Supportive psychotherapy provided MEDICAL: Per primary team DELIRIUM PRECAUTIONS: Please re-orient patient frequently, keep lights on during the day, and minimize benzodiazepines and opiates as these medications could worsen patient's confusion. 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 Thank you for the consult. Please contact with any questions and/or concerns. Medications and Allergies Medications and Allergies Allergies Allergy/AdvReac Type Severity Reaction Status Date / Time No Known Allergies Allergy Verified 04/21/21 01:13 Home Medications Medication Instructions Recorded Confirmed Last Taken Type Calcium Carbonate [Tums 500MG CHEW] 500 mg PO BID PRN #14 tablet 08/28/21 09/02/21 08/29/21 08:00 Rx Cholecalciferol Vit D3 [Vitamin D3 1,000 unit PO QDAY #14 tablet 08/28/21 09/02/21 08/29/21 08:00 Rx 1,000 UNIT TAB] Insulin Glargine [Lantus VIAL] 10 units SUB-Q DAILY 30 Days #2 08/28/21 09/02/21 08/29/21 08:00 Rx vial Insulin Regular, Human [Novolin R] 4 units SC ACHS 30 Days #2 vial 08/28/21 09/02/21 Unknown Rx predniSONE 6 tab PO QDAY #104 tab 08/28/21 09/02/21 08/29/21 07:00 Rx ALPRAZolam [Xanax TAB] 1 mg PO BID PRN #7 tablet 08/31/21 09/02/21 Unknown Rx Melatonin [Melatonin 5MG TAB] 1 tab PO QHS PRN #10 tablet 08/31/21 09/03/21 Unknown Rx Active Meds: Active Medications Acetaminophen (Acetaminophen 325 Mg Tab) 650 mg PO Q4H PRN PRN Reason: Pain MILD(1-3)/Fever >100.5/[place] Last Admin: 09/11/21 23:37 Dose: 650 mg Documented by: Albuterol (Albuterol 2.5 Mg/3 Ml Nebu) 2.5 mg IH Q3HRT PRN PRN Reason: Shortness Of Breath Alprazolam (Alprazolam 1 Mg Tab) 1 mg PO BID PRN PRN Reason: Agitation Last Admin: 09/11/21 23:37 Dose: 1 mg Documented by: Dextrose (Dextrose 50% In Water (25gm) 50 Ml Syringe) 50 ml IV Q30MIN PRN; Protocol PRN Reason: Hypoglycemia Famotidine (Famotidine 20 Mg Tab) 20 mg PO BID [facility] Last Admin: 09/12/21 10:33 Dose: 20 mg Documented by: Heparin Sodium (Porcine) (Heparin 5,000 Unit/1 Ml Vial) 5,000 unit SUB-Q Q8HR [facility] Last Admin: 09/12/21 14:05 Dose: 5,000 unit Documented by: Insulin Glargine (Insulin Glargine 100 Units/Ml) 10 units SUB-Q QHS [facility] Last Admin: 09/11/21 23:07 Dose: 10 units Documented by: Insulin Human Lispro (Insulin Lispro 100 Unit/Ml) 0 unit SUB-Q ACHS [facility]; Protocol Last Admin: 09/12/21 14:05 Dose: 6 unit Documented by: Levofloxacin (Levofloxacin 250 Mg Tab) 250 mg PO Q24HR [facility]; Protocol Methylprednisolone Sodium Succinate (Methylprednisolone Sod Succinate 40 Mg/1 Ml Inj) 40 mg IV Q8HR [facility] Ondansetron HCl (Ondansetron 4 Mg/2 Ml Inj) 4 mg IV Q8H PRN PRN Reason: Nausea And Vomiting Last Admin: 09/05/21 15:12 Dose: 4 mg Documented by: Sodium Chloride (Sodium Chloride 0.9% 10 Ml Flush Syringe) 10 ml IV BID [facility] Last Admin: 09/12/21 10:33 Dose: 10 ml Documented by: Sodium Chloride (Sodium Chloride 0.9% 10 Ml Flush Syringe) 10 ml IV PRN PRN PRN Reason: LINE FLUSH Last Admin: 09/01/21 14:16 Dose: 10 ml Documented by: Mental Status Exam - Vital signs Last Vital Signs Temp 97.8 F 09/12/21 05:14 Pulse 87 09/12/21 05:14 Resp 20 09/12/21 05:14 BP 112/73 09/12/21 05:14 Pulse Ox 92 09/12/21 11:58 Results Result Diagrams: 09/08/21 04:31 09/09/21 07:50 Abnormal lab results 09/11/21 09/11/21 09/12/21 Range/Units 16:41 22:09 08:38 POC Glucose 234 H 293 H 222 H (70-105) mg/dL 09/12/21 Range/Units 11:28 POC Glucose 326 H (70-105) mg/dL All other labs normal.
--- NOTE | 2021-09-12 19:28 | Progress Note ---
Assessment and Plan Assessment and plan: Assessment and plan: --Sepsis secondary to UTI/E. 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 Gomes PCR test is negative Severe hypoxic and hypercapnic respiratory failure, required BiPAP on admission Patient was on 10 L of nasal cannula oxygen/100% nonrebreather/BiPAP, currently on high flow O2 25 L X-ray chest show moderate gaseous distention of the stomach severe diffuse bilateral chronic parenchymal opacities that have not changed chest x-ray Patient was recently discharged on on home 3 L oxygen CTA chest; no CT evidence of PE, diffuse severe bilateral mixed interstitial and alveolar opacities CT head without contrast; there is 2 small 2 to 3 mm focus of calcification along the lateral left frontal lobe which appears to be incidental, Patient is receiving currently high-dose Solu-Medrol therapy, per pulmonary --Abdominal distention with ileus[present on admission] resolved Repeat abdomen x-ray 09/03 showed no gaseous distention, now tolerating diet --Type 2 diabetes mellitus Continue home insulin and coverage Follow hemoglobin A1c, SSI as needed --Generalized anxiety disorder Continue Xanax as necessary Psych consult --Hypokalemia: Closely monitor electrolytes and replenish as needed --DVT prophylaxis On Lovenox and GI prophylaxis --Brief history and daily hospital course: 50-year-old female patient was admitted with COVID-19 pneumonia severe hypoxic hypercapnic respiratory failure had a prolonged stay in the hospital for 3 to 4 months and was discharged on 08/28/2021 on home oxygen and long-term steroids and other supportive care, patient again was admitted on the stabilized and discharged on the . patient already has home oxygen and all the medications are needed. Patient readmitted 09/01/21 with acute hypoxic respiratory failure and altered level of consciousness, s/p BiPAP, chest x-ray gaseous distention of the stomach. Pulmonary following, patient also has generalized anxiety on Xanax. 09/01/2021; on intermittent BiPAP, chest x-ray gaseous distention of stomach recommend, NG tube placement intermittent suction and supportive care Disposition monitor closely wean will oxygen;, 2 -4 to 5 L nasal cannula, and discharge when stable. Patient already has home oxygen 09/02: Remains hypoxic and hypercapnic, somnolent post Ativan, on high flow O2 30 to 40 L, high-dose Solu-Medrol and NG tube for gastric distention. wean FiO2 as tolerated and BiPAP as needed for the hypercapnia, recheck ABG. Discussed with the pulmonary and nursing staff. 09/03: Off BiPAP this morning, continue to follow serum glucose, patient on high-dose steroid, continue high flow O2 and wean off as tolerated. Repeat abdominal x-ray showed non significant normal bowel gas pattern. Will initiate on clear liquid diet, will monitor off NG tube. 09/04;follow clinically, empiric steroid, wean off O2 as tolerated,on high flow O2.advance diet as tolerated. monitorblood glucose and adjust insulin prn 09/05: Follow clinically, consistent carb diet, high-dose empiric steroid, wean off O2 as tolerated. Transfer out of intermediate care to [facility] with telemetry. 09/06: Remains on high flow O2 25 L, supportive care, wean off O2 as tolerated, adjust serum blood glucose with insulin, tolerating consistent carb diet. 09/07/21: Continue to replete electrolytes and monitor. Wean off O2 as tolerated, guarded prognosis, continue empiric steroid. Follow clinically. 09/08/21;replete and monitor potassium, wean off O2 as tolerated. Patient remains on 25 L high flow O2. Continue empiric steroid, follow clinically. 09/09/21; spiking temp, will order pancultures, repeat chest x-ray, guarded prognosis, remains on 25 L high flow O2, follow clinically 09/10; patient is afebrile, remains on high flow 25 L nasal cannula oxygen, wean as tolerated, patient already has home oxygen Wean aggressively as tolerated, if no improvement consider hospice 09/11; patient's urine cultures positive for gram-negative rods, will add Levaquin 750 mg IV daily, follow culture sensitivities and adjust as needed Patient is anxious, has intermittent panic episodes, continue Xanax, consult psych 09/12; urine cultures positive for E. coli, sensitivities include Levaquin, remains on high flow nasal cannula oxygen, wean as tolerated Consults and recommendations noted and appreciated 1231; sepsis due to UTI E. coli, remains on high flow nasal cannula oxygen, wean as tolerated, psych evaluation noted no new recommendations History Interval history: I have seen and examined the patient at the bedside Patient's chart and medications reviewed Patient feels better continues to require HFNC 20 L/35%/92 O2 sat No new complaints Hospitalist Physical - Constitutional Vitals: Temp Pulse Resp BP Pulse Ox 98.5 F 110 H 19 114/74 94 09/12/21 17:54 09/12/21 17:54 09/12/21 17:54 09/12/21 17:54 09/12/21 17:54 General appearance: Present: no acute distress, well-nourished, other (On high flow oxygen, more alert and awake) - EENT Eyes: Present: PERRL, EOM intact - Neck Neck: Present: supple, normal ROM - Respiratory Respiratory effort: normal Respiratory: bilateral: diminished, rhonchi, negative: rales, wheezing - Cardiovascular Rhythm: regular Heart Sounds: Present: S1 & S2 - Extremities Extremities: no ischemia, No edema - Abdominal General gastrointestinal: soft, non-tender, non-distended, normal bowel sounds - Integumentary Integumentary: Present: clear, warm - Psychiatric Psychiatric: appropriate mood/affect, cooperative - Neurologic Neurologic: CNII-XII intact, moves all extremities Results - Labs CBC & Chem 7: 09/08/21 04:31 09/09/21 07:50 Labs: Laboratory Last Values WBC 8.2 K/mm3 (4.5-11.0) 09/08/21 04:31 RBC 4.99 M/mm3 (3.65-5.03) 09/08/21 04:31 Hgb 14.2 gm/dl (10.1-14.3) 09/08/21 04:31 Hct 44.9 % (30.3-42.9) H 09/08/21 04:31 MCV 90 fl (79-97) 09/08/21 04:31 MCH 28 pg (28-32) 09/08/21 04:31 MCHC 32 % (30-34) 09/08/21 04:31 RDW 17.2 % (13.2-15.2) H 09/08/21 04:31 Plt Count 178 K/mm3 (140-440) 09/08/21 04:31 Lymph % (Auto) 12.3 % (13.4-35.0) L 09/08/21 04:31 [place] % (Auto) 6.6 % (0.0-7.3) 09/08/21 04:31 Eos % (Auto) 0.3 % (0.0-4.3) 09/08/21 04:31 Baso % (Auto) 1.7 % (0.0-1.8) 09/08/21 04:31 Lymph # (Auto) 1.0 K/mm3 (1.2-5.4) L 09/08/21 04:31 [place] # (Auto) 0.5 K/mm3 (0.0-0.8) 09/08/21 04:31 Eos # (Auto) 0.0 K/mm3 (0.0-0.4) 09/08/21 04:31 Baso # (Auto) 0.1 K/mm3 (0.0-0.1) 09/08/21 04:31 Add Manual Diff Complete 09/03/21 06:05 Total Counted 100 09/03/21 06:05 Seg Neutrophils % 79.1 % (40.0-70.0) H 09/08/21 04:31 Seg Neuts % (Manual) 94.0 % (40.0-70.0) H 09/03/21 06:05 Lymphocytes % (Manual) 3.0 % (13.4-35.0) L 09/03/21 06:05 Monocytes % (Manual) 3.0 % (0.0-7.3) 09/03/21 06:05 Nucleated RBC % Not Reportable 09/03/21 06:05 Seg Neutrophils # 6.5 K/mm3 (1.8-7.7) 09/08/21 04:31 Seg Neutrophils # Man 7.3 K/mm3 (1.8-7.7) 09/03/21 06:05 Band Neutrophils # 0.0 K/mm3 09/03/21 06:05 Lymphocytes # (Manual) 0.2 K/mm3 (1.2-5.4) L 09/03/21 06:05 Abs React Lymphs (Man) 0.0 K/mm3 09/03/21 06:05 Monocytes # (Manual) 0.2 K/mm3 (0.0-0.8) 09/03/21 06:05 Eosinophils # (Manual) 0.0 K/mm3 (0.0-0.4) 09/03/21 06:05 Basophils # (Manual) 0.0 K/mm3 (0.0-0.1) 09/03/21 06:05 Metamyelocytes # 0.0 K/mm3 09/03/21 06:05 Myelocytes # 0.0 K/mm3 09/03/21 06:05 Promyelocytes # 0.0 K/mm3 09/03/21 06:05 Blast Cells # 0.0 K/mm3 09/03/21 06:05 WBC Morphology Not Reportable 09/03/21 06:05 Hypersegmented Neuts Not Reportable 09/03/21 06:05 Hyposegmented Neuts Not Reportable 09/03/21 06:05 Hypogranular Neuts Not Reportable 09/03/21 06:05 Smudge Cells Not Reportable 09/03/21 06:05 Toxic Granulation Not Reportable 09/03/21 06:05 Toxic Vacuolation Not Reportable 09/03/21 06:05 Dohle Bodies Not Reportable 09/03/21 06:05 Pelger-Huet Anomaly Not Reportable 09/03/21 06:05 Janelle Rods Not Reportable 09/03/21 06:05 Platelet Estimate Consistent w auto 09/03/21 06:05 Clumped Platelets Not Reportable 09/03/21 06:05 Plt Clumps, EDTA Not Reportable 09/03/21 06:05 Large Platelets Not Reportable 09/03/21 06:05 Giant Platelets Not Reportable 09/03/21 06:05 Platelet Satelliting Not Reportable 09/03/21 06:05 Plt Morphology Comment Not Reportable 09/03/21 06:05 RBC Morphology Normal 09/03/21 06:05 Dimorphic RBCs Not Reportable 09/03/21 06:05 Polychromasia Not Reportable 09/03/21 06:05 Hypochromasia Not Reportable 09/03/21 06:05 Poikilocytosis 1+ 09/03/21 06:05 Anisocytosis Not Reportable 09/03/21 06:05 Microcytosis Not Reportable 09/03/21 06:05 Macrocytosis Not Reportable 09/03/21 06:05 Spherocytes Not Reportable 09/03/21 06:05 Pappenheimer Bodies Not Reportable 09/03/21 06:05 Sickle Cells Not Reportable 09/03/21 06:05 Target Cells Not Reportable 09/03/21 06:05 Tear Drop Cells Not Reportable 09/03/21 06:05 Ovalocytes Not Reportable 09/03/21 06:05 Stomatocytes 3+ 09/03/21 06:05 Helmet Cells Not Reportable 09/03/21 06:05 Ahuja-[place] Bodies Not Reportable 09/03/21 06:05 [place] Rings Not Reportable 09/03/21 06:05 Phenix Cells Not Reportable 09/03/21 06:05 Bite Cells Not Reportable 09/03/21 06:05 Crenated Cell Not Reportable 09/03/21 06:05 Elliptocytes Not Reportable 09/03/21 06:05 Acanthocytes (Spur) Not Reportable 09/03/21 06:05 Rouleaux Not Reportable 09/03/21 06:05 Hemoglobin C Crystals Not Reportable 09/03/21 06:05 Schistocytes Not Reportable 09/03/21 06:05 Malaria parasites Not Reportable 09/03/21 06:05 Justin Bodies Not Reportable 09/03/21 06:05 Hem Pathologist Commnt No 09/03/21 06:05 D-Dimer 710.59 ng/mlDDU (0-234) H 08/31/21 19:32 ABG pH 7.240 pH Units (7.350-7.450) L 09/01/21 23:56 ABG pCO2 111.3 mm Hg 09/01/21 23:56 ABG pO2 198.0 mm Hg (80.0-90.0) H 09/01/21 23:56 ABG HCO3 46.6 mmol/L (20.0-26.0) H 09/01/21 23:56 ABG O2 Saturation 99.0 % (95.0-99.0) 09/01/21 23:56 ABG O2 Content 16.8 (0.0-44) 09/01/21 23:56 ABG Base Excess 14.8 mmol/L (-2.0-3.0) H 09/01/21 23:56 ABG Hemoglobin 12.0 gm/dl (12.0-16.0) 09/01/21 23:56 ABG Carboxyhemoglobin 1.6 % (0.0-5.0) 09/01/21 23:56 ABG Methemoglobin 0.6 % (0.0-1.5) 09/01/21 23:56 Oxyhemoglobin 96.8 % (95.0-99.0) 09/01/21 23:56 FiO2 60 % 09/01/21 23:56 Sodium 138 mmol/L (137-145) 09/09/21 07:50 Potassium 4.7 mmol/L (3.6-5.0) D 09/09/21 07:50 Chloride 88.8 mmol/L (98-107) L 09/09/21 07:50 Carbon Dioxide 39 mmol/L (22-30) H 09/09/21 07:50 Anion Gap 15 mmol/L 09/09/21 07:50 BUN 14 mg/dL (7-17) 09/09/21 07:50 Creatinine < 0.2 mg/dL (0.6-1.2) L 09/09/21 07:50 Estimated GFR > 60 ml/min 09/09/21 07:50 BUN/Creatinine Ratio 70 % 09/09/21 07:50 Glucose 197 mg/dL (65-100) H 09/09/21 07:50 POC Glucose 130 mg/dL (70-105) H 09/12/21 16:25 Calcium 8.8 mg/dL (8.4-10.2) 09/09/21 07:50 Magnesium 2.10 mg/dL (1.7-2.3) 09/08/21 04:31 Total Bilirubin 0.30 mg/dL (0.1-1.2) 09/03/21 06:05 AST 29 units/L (5-40) 09/03/21 06:05 ALT 71 units/L (7-56) H 09/03/21 06:05 Alkaline Phosphatase 82 units/L (35-129) 09/03/21 06:05 NT-Pro-B Natriuret Pep 524.1 pg/mL (0-450) H 08/31/21 19:32 Total Protein 7.0 g/dL (6.3-8.2) 09/03/21 06:05 Albumin 3.8 g/dL (3.9-5) L 09/03/21 06:05 Albumin/Globulin Ratio 1.2 % 09/03/21 06:05 HCG, Qual Negative (Negative) 08/31/21 19:32 Urine Color Yellow (Yellow) 09/10/21 07:00 Urine Turbidity Cloudy (Clear) 09/10/21 07:00 Urine pH 7.0 (5.0-7.0) 09/10/21 07:00 Ur Specific [place] 1.022 (1.003-1.030) 09/10/21 07:00 Urine Protein <15 mg/dl mg/dL (Negative) 09/10/21 07:00 Urine Glucose (UA) >=500 mg/dL (Negative) 09/10/21 07:00 Urine Ketones Neg mg/dL (Negative) 09/10/21 07:00 Urine Blood Sm (Negative) 09/10/21 07:00 Urine Nitrite Neg (Negative) 09/10/21 07:00 Urine Bilirubin Neg (Negative) 09/10/21 07:00 Urine Urobilinogen < 2.0 mg/dL (<2.0) 09/10/21 07:00 Ur Leukocyte Esterase Mod (Negative) 09/10/21 07:00 Urine WBC (Auto) 24.0 /HPF (0.0-6.0) H 09/10/21 07:00 Urine RBC (Auto) 17.0 /HPF (0.0-6.0) 09/10/21 07:00 U Epithel Cells (Auto) 3.0 /HPF (0-13.0) 09/10/21 07:00 Urine Bacteria (Auto) 2+ /HPF (Negative) 09/10/21 07:00 Calcium Oxalate Crystal Few 09/10/21 07:00 Urine Mucus 1+ /HPF 09/10/21 07:00 Ur Yeast w Hyphae Few /HPF 09/10/21 07:00 Urine Yeast (Budding) Few /HPF 09/10/21 07:00 Microbiology: Microbiology 09/10/21 07:00 Urine,Clean Catch Urine Culture - Final Escherichia Coli 09/09/21 18:02 Peripheral/Venous Blood Culture - Preliminary NO GROWTH AFTER 48 HOURS 09/09/21 18:02 Peripheral/Venous Blood Culture - Preliminary NO GROWTH AFTER 48 HOURS Amos/IV: Voiding Method External Female Catheter Active Medications - Current Medications Current Medications: Generic Name Dose Route Start Last Admin Trade Name Freq PRN Reason Stop Dose Admin Acetaminophen 650 mg 09/01/21 01:25 09/11/21 23:37 Acetaminophen 325 Mg Tab PO 650 mg Q4H PRN Administration Pain MILD(1-3)/Fever >100.5/[place] Albuterol 2.5 mg 09/01/21 01:25 Albuterol 2.5 Mg/3 Ml Nebu IH Q3HRT PRN Shortness Of Breath Alprazolam 1 mg 09/01/21 01:38 09/11/21 23:37 Alprazolam 1 Mg Tab PO 1 mg BID PRN Administration Agitation Dextrose 50 ml 09/01/21 01:25 Dextrose 50% In Water (25gm) 50 Ml Syringe IV Q30MIN PRN Hypoglycemia Protocol Famotidine 20 mg 09/01/21 10:00 09/12/21 10:33 Famotidine 20 Mg Tab PO 20 mg BID TUTU Administration Heparin Sodium (Porcine) 5,000 unit 09/01/21 06:00 09/12/21 14:05 Heparin 5,000 Unit/1 Ml Vial SUB-Q 5,000 unit Q8HR TUTU Administration Insulin Glargine 10 units 09/08/21 22:00 09/11/21 23:07 Insulin Glargine 100 Units/Ml SUB-Q 10 units QHS TUTU Administration Insulin Human Lispro 0 unit 09/01/21 07:30 09/12/21 16:39 Insulin Lispro 100 Unit/Ml SUB-Q Not Given ACHS [facility] Protocol Levofloxacin 250 mg 09/12/21 11:00 09/12/21 15:35 Levofloxacin 250 Mg Tab PO 250 mg Q24HR TUTU Administration Protocol Methylprednisolone Sodium Succinate 40 mg 09/12/21 22:00 Methylprednisolone Sod Succinate 40 Mg/1 Ml Inj IV Q8HR [facility] Ondansetron HCl 4 mg 09/01/21 01:25 09/05/21 15:12 Ondansetron 4 Mg/2 Ml Inj IV 4 mg Q8H PRN Administration Nausea And Vomiting Sodium Chloride 10 ml 09/01/21 10:00 09/12/21 10:33 Sodium Chloride 0.9% 10 Ml Flush Syringe IV 10 ml BID TUTU Administration Sodium Chloride 10 ml 09/01/21 01:25 09/01/21 14:16 Sodium Chloride 0.9% 10 Ml Flush Syringe IV 10 ml PRN PRN Administration LINE FLUSH Nutrition/Malnutrition Assess - Dietary Evaluation Nutrition/Malnutrition Findings: Nutrition Notes Start: 09/01/21 12:25 Freq: Status: Active Protocol: Document 09/09/21 14:03 SAQIB (Rec: 09/09/21 14:18 SAQIB [id number]) Nutrition Notes Initial or Follow up Brief Note Current Diagnosis Diabetes,Respiratory Failure Other Pertinent Diagnosis Post COVID-19 Syndrome, hypercapnia, [place]. Current Diet Consistent Carbohydrates Diet (since B 09/06). Height 5 ft 2 in Weight 54 kg [place] Body Weight (kg) 50.00 BMI 21.7 Weight change and time frame No body weight change reported . Weight Status Appropriate Subjective/Other Information RD consult on dietary advancement, %PO tolerance and intake of meals. Pt's current %PO intake of meals is close to 75%, according to ADL notes. Percent of energy/protein needs met: Prescribed Consistent Carbohydrates Diet provides for energy/protein needs (2, 061 Kcal/91 g) during LOS. Current % PO Fair (50-74%) Nutrition Intervention Change Diet Order: Continue Consistent Carbohydrates Diet. Goal #1 Maintain body weight within +/ -3% of admission body weight during LOS. Goal #2 Reach and maintain acceptable chemistry lab values during LOS. Follow-Up By: 09/16/21 Additional Comments Continue monitoring food tolerance, %PO intake of meals , Hydration, and BM.
[2021-09-12] MEDS: ACETAMINOPHEN 325 MG TAB PO PRN (23:14)
[2021-09-12] MEDS: INSULIN GLARGINE 100 UNITS/ML SUB-Q SCH (23:18)
[2021-09-12] MEDS: methylPREDNISolone Sod Succinate 40 MG/1 ML INJ IV SCH (23:19)
[2021-09-12] MEDS: ALPRAZolam 1 MG TAB PO PRN (23:25)
[2021-09-13] MEDS: methylPREDNISolone Sod Succinate 40 MG/1 ML INJ IV SCH ×3 (05:28→21:58)
[2021-09-13] MEDS: HEPARIN 5,000 UNIT/1 ML VIAL SUB-Q SCH ×3 (05:29→21:56)
[2021-09-13] MEDS: INSULIN LISPRO 100 UNIT/ML SUB-Q SCH ×4 (07:30→22:21)
[2021-09-13] MEDS: levoFLOXacin 250 MG TAB PO SCH (11:05)
[2021-09-13] MEDS: FAMOTIDINE 20 MG TAB PO SCH ×2 (11:06→22:03)
[2021-09-13] MEDS: ALPRAZolam 1 MG TAB PO PRN ×2 (12:21→22:28)
--- NOTE | 2021-09-13 15:54 | Progress Note ---
Assessment and Plan Assessment and plan: --Sepsis secondary to UTI/E. 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 Gomes PCR test is negative Severe hypoxic and hypercapnic respiratory failure, required BiPAP on admission Patient was on 10 L of nasal cannula oxygen/100% nonrebreather/BiPAP, currently on high flow O2 25 L X-ray chest show moderate gaseous distention of the stomach severe diffuse bilateral chronic parenchymal opacities that have not changed chest x-ray Patient was recently discharged on on home 3 L oxygen CTA chest; no CT evidence of PE, diffuse severe bilateral mixed interstitial and alveolar opacities CT head without contrast; there is 2 small 2 to 3 mm focus of calcification along the lateral left frontal lobe which appears to be incidental, Patient is receiving currently high-dose Solu-Medrol therapy, per pulmonary --Abdominal distention with ileus[present on admission] resolved Repeat abdomen x-ray 09/03 showed no gaseous distention, now tolerating diet --Type 2 diabetes mellitus Continue home insulin and coverage Follow hemoglobin A1c, SSI as needed --Generalized anxiety disorder Continue Xanax as necessary Psych consult --Hypokalemia: Closely monitor electrolytes and replenish as needed --DVT prophylaxis On Lovenox and GI prophylaxis --Brief history and daily hospital course: 50-year-old female patient was admitted with COVID-19 pneumonia severe hypoxic hypercapnic respiratory failure had a prolonged stay in the hospital for 3 to 4 months and was discharged on 08/28/2021 on home oxygen and long-term steroids and other supportive care, patient again was admitted on the stabilized and discharged on the . patient already has home oxygen and all the medications are needed. Patient readmitted 09/01/21 with acute hypoxic respiratory failure and altered level of consciousness, s/p BiPAP, chest x-ray gaseous distention of the stomach. Pulmonary following, patient also has generalized anxiety on Xanax. 09/01/2021; on intermittent BiPAP, chest x-ray gaseous distention of stomach recommend, NG tube placement intermittent suction and supportive care Disposition monitor closely wean will oxygen;, 2 -4 to 5 L nasal cannula, and discharge when stable. Patient already has home oxygen 09/02: Remains hypoxic and hypercapnic, somnolent post Ativan, on high flow O2 30 to 40 L, high-dose Solu-Medrol and NG tube for gastric distention. wean FiO2 as tolerated and BiPAP as needed for the hypercapnia, recheck ABG. Discussed with the pulmonary and nursing staff. 09/03: Off BiPAP this morning, continue to follow serum glucose, patient on high-dose steroid, continue high flow O2 and wean off as tolerated. Repeat abdominal x-ray showed non significant normal bowel gas pattern. Will initiate on clear liquid diet, will monitor off NG tube. 09/04;follow clinically, empiric steroid, wean off O2 as tolerated,on high flow O2.advance diet as tolerated. monitorblood glucose and adjust insulin prn 09/05: Follow clinically, consistent carb diet, high-dose empiric steroid, wean off O2 as tolerated. Transfer out of intermediate care to [facility] with telemetry. 09/06: Remains on high flow O2 25 L, supportive care, wean off O2 as tolerated, adjust serum blood glucose with insulin, tolerating consistent carb diet. 09/07/21: Continue to replete electrolytes and monitor. Wean off O2 as tolerated, guarded prognosis, continue empiric steroid. Follow clinically. 09/08/21;replete and monitor potassium, wean off O2 as tolerated. Patient remains on 25 L high flow O2. Continue empiric steroid, follow clinically. 09/09/21; spiking temp, will order pancultures, repeat chest x-ray, guarded prognosis, remains on 25 L high flow O2, follow clinically 09/10; patient is afebrile, remains on high flow 25 L nasal cannula oxygen, wean as tolerated, patient already has home oxygen Wean aggressively as tolerated, if no improvement consider hospice 09/11; patient's urine cultures positive for gram-negative rods, will add Levaquin 750 mg IV daily, follow culture sensitivities and adjust as needed Patient is anxious, has intermittent panic episodes, continue Xanax, consult psy ch 09/12; urine cultures positive for E. coli, sensitivities include Levaquin, remains on high flow nasal cannula oxygen, wean as tolerated Consults and recommendations noted and appreciated 09/13; sepsis due to UTI E. coli, remains on high flow nasal cannula oxygen, wean as tolerated, psych evaluation noted no new recommendations 09/14/21: On HFNC 20 L/35% FiO2/95 O2 sats, wean as tolerated, continue current management History Interval history: I have seen and examined the patient Patient remains on high flow nasal cannula oxygen In mild distress, Anxious vital signs noted Hospitalist Physical - Constitutional Vitals: Temp Pulse Resp BP Pulse Ox 98.2 F 94 H 24 134/86 92 09/13/21 11:15 09/13/21 11:15 09/13/21 11:15 09/13/21 11:15 09/13/21 11:15 General appearance: Present: mild distress, well-nourished, other (On high flow oxygen, more alert and awake) - EENT Eyes: Present: PERRL, EOM intact - Neck Neck: Present: supple, normal ROM - Respiratory Respiratory effort: normal Respiratory: bilateral: diminished, negative: rales, rhonchi, wheezing - Cardiovascular Rhythm: regular Heart Sounds: Present: S1 & S2 - Extremities Extremities: no ischemia, No edema - Abdominal General gastrointestinal: soft, non-tender, non-distended, normal bowel sounds - Integumentary Integumentary: Present: clear, warm - Psychiatric Psychiatric: appropriate mood/affect, cooperative - Neurologic Neurologic: CNII-XII intact, moves all extremities Results - Labs CBC & Chem 7: 09/08/21 04:31 09/09/21 07:50 Labs: Laboratory Last Values WBC 8.2 K/mm3 (4.5-11.0) 09/08/21 04:31 RBC 4.99 M/mm3 (3.65-5.03) 09/08/21 04:31 Hgb 14.2 gm/dl (10.1-14.3) 09/08/21 04:31 Hct 44.9 % (30.3-42.9) H 09/08/21 04:31 MCV 90 fl (79-97) 09/08/21 04:31 MCH 28 pg (28-32) 09/08/21 04:31 MCHC 32 % (30-34) 09/08/21 04:31 RDW 17.2 % (13.2-15.2) H 09/08/21 04:31 Plt Count 178 K/mm3 (140-440) 09/08/21 04:31 Lymph % (Auto) 12.3 % (13.4-35.0) L 09/08/21 04:31 [place] % (Auto) 6.6 % (0.0-7.3) 09/08/21 04:31 Eos % (Auto) 0.3 % (0.0-4.3) 09/08/21 04:31 Baso % (Auto) 1.7 % (0.0-1.8) 09/08/21 04:31 Lymph # (Auto) 1.0 K/mm3 (1.2-5.4) L 09/08/21 04:31 [place] # (Auto) 0.5 K/mm3 (0.0-0.8) 09/08/21 04:31 Eos # (Auto) 0.0 K/mm3 (0.0-0.4) 09/08/21 04:31 Baso # (Auto) 0.1 K/mm3 (0.0-0.1) 09/08/21 04:31 Add Manual Diff Complete 09/03/21 06:05 Total Counted 100 09/03/21 06:05 Seg Neutrophils % 79.1 % (40.0-70.0) H 09/08/21 04:31 Seg Neuts % (Manual) 94.0 % (40.0-70.0) H 09/03/21 06:05 Lymphocytes % (Manual) 3.0 % (13.4-35.0) L 09/03/21 06:05 Monocytes % (Manual) 3.0 % (0.0-7.3) 09/03/21 06:05 Nucleated RBC % Not Reportable 09/03/21 06:05 Seg Neutrophils # 6.5 K/mm3 (1.8-7.7) 09/08/21 04:31 Seg Neutrophils # Man 7.3 K/mm3 (1.8-7.7) 09/03/21 06:05 Band Neutrophils # 0.0 K/mm3 09/03/21 06:05 Lymphocytes # (Manual) 0.2 K/mm3 (1.2-5.4) L 09/03/21 06:05 Abs React Lymphs (Man) 0.0 K/mm3 09/03/21 06:05 Monocytes # (Manual) 0.2 K/mm3 (0.0-0.8) 09/03/21 06:05 Eosinophils # (Manual) 0.0 K/mm3 (0.0-0.4) 09/03/21 06:05 Basophils # (Manual) 0.0 K/mm3 (0.0-0.1) 09/03/21 06:05 Metamyelocytes # 0.0 K/mm3 09/03/21 06:05 Myelocytes # 0.0 K/mm3 09/03/21 06:05 Promyelocytes # 0.0 K/mm3 09/03/21 06:05 Blast Cells # 0.0 K/mm3 09/03/21 06:05 WBC Morphology Not Reportable 09/03/21 06:05 Hypersegmented Neuts Not Reportable 09/03/21 06:05 Hyposegmented Neuts Not Reportable 09/03/21 06:05 Hypogranular Neuts Not Reportable 09/03/21 06:05 Smudge Cells Not Reportable 09/03/21 06:05 Toxic Granulation Not Reportable 09/03/21 06:05 Toxic Vacuolation Not Reportable 09/03/21 06:05 Dohle Bodies Not Reportable 09/03/21 06:05 Pelger-Huet Anomaly Not Reportable 09/03/21 06:05 Janelle Rods Not Reportable 09/03/21 06:05 Platelet Estimate Consistent w auto 09/03/21 06:05 Clumped Platelets Not Reportable 09/03/21 06:05 Plt Clumps, EDTA Not Reportable 09/03/21 06:05 Large Platelets Not Reportable 09/03/21 06:05 Giant Platelets Not Reportable 09/03/21 06:05 Platelet Satelliting Not Reportable 09/03/21 06:05 Plt Morphology Comment Not Reportable 09/03/21 06:05 RBC Morphology Normal 09/03/21 06:05 Dimorphic RBCs Not Reportable 09/03/21 06:05 Polychromasia Not Reportable 09/03/21 06:05 Hypochromasia Not Reportable 09/03/21 06:05 Poikilocytosis 1+ 09/03/21 06:05 Anisocytosis Not Reportable 09/03/21 06:05 Microcytosis Not Reportable 09/03/21 06:05 Macrocytosis Not Reportable 09/03/21 06:05 Spherocytes Not Reportable 09/03/21 06:05 Pappenheimer Bodies Not Reportable 09/03/21 06:05 Sickle Cells Not Reportable 09/03/21 06:05 Target Cells Not Reportable 09/03/21 06:05 Tear Drop Cells Not Reportable 09/03/21 06:05 Ovalocytes Not Reportable 09/03/21 06:05 Stomatocytes 3+ 09/03/21 06:05 Helmet Cells Not Reportable 09/03/21 06:05 Ahuja-Christine Bodies Not Reportable 09/03/21 06:05 [place] Rings Not Reportable 09/03/21 06:05 [place] Cells Not Reportable 09/03/21 06:05 Bite Cells Not Reportable 09/03/21 06:05 Crenated Cell Not Reportable 09/03/21 06:05 Elliptocytes Not Reportable 09/03/21 06:05 Acanthocytes (Spur) Not Reportable 09/03/21 06:05 Rouleaux Not Reportable 09/03/21 06:05 Hemoglobin C Crystals Not Reportable 09/03/21 06:05 Schistocytes Not Reportable 09/03/21 06:05 Malaria parasites Not Reportable 09/03/21 06:05 Justin Bodies Not Reportable 09/03/21 06:05 Hem Pathologist Commnt No 09/03/21 06:05 D-Dimer 710.59 ng/mlDDU (0-234) H 08/31/21 19:32 ABG pH 7.240 pH Units (7.350-7.450) L 09/01/21 23:56 ABG pCO2 111.3 mm Hg 09/01/21 23:56 ABG pO2 198.0 mm Hg (80.0-90.0) H 09/01/21 23:56 ABG HCO3 46.6 mmol/L (20.0-26.0) H 09/01/21 23:56 ABG O2 Saturation 99.0 % (95.0-99.0) 09/01/21 23:56 ABG O2 Content 16.8 (0.0-44) 09/01/21 23:56 ABG Base Excess 14.8 mmol/L (-2.0-3.0) H 09/01/21 23:56 ABG Hemoglobin 12.0 gm/dl (12.0-16.0) 09/01/21 23:56 ABG Carboxyhemoglobin 1.6 % (0.0-5.0) 09/01/21 23:56 ABG Methemoglobin 0.6 % (0.0-1.5) 09/01/21 23:56 Oxyhemoglobin 96.8 % (95.0-99.0) 09/01/21 23:56 FiO2 60 % 09/01/21 23:56 Sodium 138 mmol/L (137-145) 09/09/21 07:50 Potassium 4.7 mmol/L (3.6-5.0) D 09/09/21 07:50 Chloride 88.8 mmol/L (98-107) L 09/09/21 07:50 Carbon Dioxide 39 mmol/L (22-30) H 09/09/21 07:50 Anion Gap 15 mmol/L 09/09/21 07:50 BUN 14 mg/dL (7-17) 09/09/21 07:50 Creatinine < 0.2 mg/dL (0.6-1.2) L 09/09/21 07:50 Estimated GFR > 60 ml/min 09/09/21 07:50 BUN/Creatinine Ratio 70 % 09/09/21 07:50 Glucose 197 mg/dL (65-100) H 09/09/21 07:50 POC Glucose 263 mg/dL (70-105) H 09/13/21 11:12 Calcium 8.8 mg/dL (8.4-10.2) 09/09/21 07:50 Magnesium 2.10 mg/dL (1.7-2.3) 09/08/21 04:31 Total Bilirubin 0.30 mg/dL (0.1-1.2) 09/03/21 06:05 AST 29 units/L (5-40) 09/03/21 06:05 ALT 71 units/L (7-56) H 09/03/21 06:05 Alkaline Phosphatase 82 units/L (35-129) 09/03/21 06:05 NT-Pro-B Natriuret Pep 524.1 pg/mL (0-450) H 08/31/21 19:32 Total Protein 7.0 g/dL (6.3-8.2) 09/03/21 06:05 Albumin 3.8 g/dL (3.9-5) L 09/03/21 06:05 Albumin/Globulin Ratio 1.2 % 09/03/21 06:05 HCG, Qual Negative (Negative) 08/31/21 19:32 Urine Color Yellow (Yellow) 09/10/21 07:00 Urine Turbidity Cloudy (Clear) 09/10/21 07:00 Urine pH 7.0 (5.0-7.0) 09/10/21 07:00 Ur Specific [place] 1.022 (1.003-1.030) 09/10/21 07:00 Urine Protein <15 mg/dl mg/dL (Negative) 09/10/21 07:00 Urine Glucose (UA) >=500 mg/dL (Negative) 09/10/21 07:00 Urine Ketones Neg mg/dL (Negative) 09/10/21 07:00 Urine Blood Sm (Negative) 09/10/21 07:00 Urine Nitrite Neg (Negative) 09/10/21 07:00 Urine Bilirubin Neg (Negative) 09/10/21 07:00 Urine Urobilinogen < 2.0 mg/dL (<2.0) 09/10/21 07:00 Ur Leukocyte Esterase Mod (Negative) 09/10/21 07:00 Urine WBC (Auto) 24.0 /HPF (0.0-6.0) H 09/10/21 07:00 Urine RBC (Auto) 17.0 /HPF (0.0-6.0) 09/10/21 07:00 U Epithel Cells (Auto) 3.0 /HPF (0-13.0) 09/10/21 07:00 Urine Bacteria (Auto) 2+ /HPF (Negative) 09/10/21 07:00 Calcium Oxalate Crystal Few 09/10/21 07:00 Urine Mucus 1+ /HPF 09/10/21 07:00 Ur Yeast w Hyphae Few /HPF 09/10/21 07:00 Urine Yeast (Budding) Few /HPF 09/10/21 07:00 Microbiology: Microbiology 09/09/21 18:02 Peripheral/Venous Blood Culture - Preliminary NO GROWTH AFTER 72 HOURS 09/09/21 18:02 Peripheral/Venous Blood Culture - Preliminary NO GROWTH AFTER 72 HOURS 09/10/21 07:00 Urine,Clean Catch Urine Culture - Final Escherichia Coli Amos/IV: Voiding Method External Female Catheter Active Medications - Current Medications Current Medications: Generic Name Dose Route Start Last Admin Trade Name Freq PRN Reason Stop Dose Admin Acetaminophen 650 mg 09/01/21 01:25 09/12/21 23:14 Acetaminophen 325 Mg Tab PO 650 mg Q4H PRN Administration Pain MILD(1-3)/Fever >100.5/[place] Albuterol 2.5 mg 09/01/21 01:25 Albuterol 2.5 Mg/3 Ml Nebu IH Q3HRT PRN Shortness Of Breath Alprazolam 1 mg 09/01/21 01:38 09/13/21 12:21 Alprazolam 1 Mg Tab PO 1 mg BID PRN Administration Agitation Dextrose 50 ml 09/01/21 01:25 Dextrose 50% In Water (25gm) 50 Ml Syringe IV Q30MIN PRN Hypoglycemia Protocol Famotidine 20 mg 09/01/21 10:00 09/13/21 11:06 Famotidine 20 Mg Tab PO 20 mg BID TUTU Administration Heparin Sodium (Porcine) 5,000 unit 09/01/21 06:00 09/13/21 14:16 Heparin 5,000 Unit/1 Ml Vial SUB-Q 5,000 unit Q8HR TUTU Administration Insulin Glargine 10 units 09/08/21 22:00 09/12/21 23:18 Insulin Glargine 100 Units/Ml SUB-Q 10 units QHS TUTU Administration Insulin Human Lispro 0 unit 09/01/21 07:30 09/13/21 12:26 Insulin Lispro 100 Unit/Ml SUB-Q 4 unit ACHS TUTU Administration Protocol Levofloxacin 250 mg 09/12/21 11:00 09/13/21 11:05 Levofloxacin 250 Mg Tab PO 09/16/21 10:59 250 mg Q24HR TUTU Administration Protocol Methylprednisolone Sodium Succinate 40 mg 09/12/21 22:00 09/13/21 14:16 Methylprednisolone Sod Succinate 40 Mg/1 Ml Inj IV 40 mg Q8HR TUTU Administration Ondansetron HCl 4 mg 09/01/21 01:25 09/05/21 15:12 Ondansetron 4 Mg/2 Ml Inj IV 4 mg Q8H PRN Administration Nausea And Vomiting Sodium Chloride 10 ml 09/01/21 10:00 09/13/21 11:06 Sodium Chloride 0.9% 10 Ml Flush Syringe IV 10 ml BID TUTU Administration Sodium Chloride 10 ml 09/01/21 01:25 09/01/21 14:16 Sodium Chloride 0.9% 10 Ml Flush Syringe IV 10 ml PRN PRN Administration LINE FLUSH Nutrition/Malnutrition Assess - Dietary Evaluation Nutrition/Malnutrition Findings: Nutrition Notes Start: 09/01/21 12:25 Freq: Status: Active Protocol: Document 09/09/21 14:03 SAQIB (Rec: 09/09/21 14:18 SAQIB [id number]) Nutrition Notes Initial or Follow up Brief Note Current Diagnosis Diabetes,Respiratory Failure Other Pertinent Diagnosis Post COVID-19 Syndrome, hypercapnia, [place]. Current Diet Consistent Carbohydrates Diet (since B 09/06). Height 5 ft 2 in Weight 54 kg [place] Body Weight (kg) 50.00 BMI 21.7 Weight change and time frame No body weight change reported . Weight Status Appropriate Subjective/Other Information RD consult on dietary advancement, %PO tolerance and intake of meals. Pt's current %PO intake of meals is close to 75%, according to ADL notes. Percent of energy/protein needs met: Prescribed Consistent Carbohydrates Diet provides for energy/protein needs (2, 061 Kcal/91 g) during LOS. Current % PO Fair (50-74%) Nutrition Intervention Change Diet Order: Continue Consistent Carbohydrates Diet. Goal #1 Maintain body weight within +/ -3% of admission body weight during LOS. Goal #2 Reach and maintain acceptable chemistry lab values during LOS. Follow-Up By: 09/16/21 Additional Comments Continue monitoring food tolerance, %PO intake of meals , Hydration, and BM.
[2021-09-13] MEDS: INSULIN GLARGINE 100 UNITS/ML SUB-Q SCH (22:01)
[2021-09-13] MEDS: ACETAMINOPHEN 325 MG TAB PO PRN (22:17)
[2021-09-14] MEDS: HEPARIN 5,000 UNIT/1 ML VIAL SUB-Q SCH ×3 (05:46→22:52)
[2021-09-14] MEDS: methylPREDNISolone Sod Succinate 40 MG/1 ML INJ IV SCH ×3 (05:46→22:51)
[2021-09-14] MEDS: levoFLOXacin 250 MG TAB PO SCH ×2 (08:20→10:00)
[2021-09-14] MEDS: FAMOTIDINE 20 MG TAB PO SCH ×3 (08:21→22:51)
[2021-09-14] MEDS: INSULIN LISPRO 100 UNIT/ML SUB-Q SCH ×4 (08:21→23:13)
[2021-09-14] MEDS: ACETAMINOPHEN 325 MG TAB PO PRN (20:28)
[2021-09-14] MEDS: INSULIN GLARGINE 100 UNITS/ML SUB-Q SCH (22:57)
[2021-09-14] MEDS: ALPRAZolam 1 MG TAB PO PRN (23:14)
[2021-09-15] MEDS: methylPREDNISolone Sod Succinate 40 MG/1 ML INJ IV SCH ×3 (05:49→22:51)
[2021-09-15] MEDS: HEPARIN 5,000 UNIT/1 ML VIAL SUB-Q SCH ×3 (05:50→22:53)
[2021-09-15] MEDS: ACETAMINOPHEN 325 MG TAB PO PRN ×3 (06:16→23:06)
[2021-09-15] MEDS: INSULIN LISPRO 100 UNIT/ML SUB-Q SCH ×4 (07:42→22:52)
[2021-09-15] MEDS: FAMOTIDINE 20 MG TAB PO SCH ×2 (11:15→22:52)
[2021-09-15] MEDS: levoFLOXacin 250 MG TAB PO SCH (11:15)
[2021-09-15] MEDS: ALPRAZolam 1 MG TAB PO PRN ×2 (13:10→22:51)
--- NOTE | 2021-09-15 18:40 | Progress Note ---
Assessment and Plan Assessment and plan: --Sepsis secondary to UTI/E. 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 Gomes PCR test is negative Severe hypoxic and hypercapnic respiratory failure, required BiPAP on admission Patient was on 10 L of nasal cannula oxygen/100% nonrebreather/BiPAP, currently on high flow O2 25 L X-ray chest show moderate gaseous distention of the stomach severe diffuse bilateral chronic parenchymal opacities that have not changed chest x-ray Patient was recently discharged on on home 3 L oxygen CTA chest; no CT evidence of PE, diffuse severe bilateral mixed interstitial and alveolar opacities CT head without contrast; there is 2 small 2 to 3 mm focus of calcification along the lateral left frontal lobe which appears to be incidental, Patient is receiving currently high-dose Solu-Medrol therapy, per pulmonary --Abdominal distention with ileus[present on admission] resolved Repeat abdomen x-ray 09/03 showed no gaseous distention, now tolerating diet --Type 2 diabetes mellitus Continue home insulin and coverage Follow hemoglobin A1c, SSI as needed --Generalized anxiety disorder Continue Xanax as necessary Psych consult --Hypokalemia: Closely monitor electrolytes and replenish as needed --DVT prophylaxis On Lovenox and GI prophylaxis --Brief history and daily hospital course: 50-year-old female patient was admitted with COVID-19 pneumonia severe hypoxic hypercapnic respiratory failure had a prolonged stay in the hospital for 3 to 4 months and was discharged on 08/28/2021 on home oxygen and long-term steroids and other supportive care, patient again was admitted on the stabilized and discharged on the . patient already has home oxygen and all the medications are needed. Patient readmitted 09/01/21 with acute hypoxic respiratory failure and altered level of consciousness, s/p BiPAP, chest x-ray gaseous distention of the stomach. Pulmonary following, patient also has generalized anxiety on Xanax. 09/01/2021; on intermittent BiPAP, chest x-ray gaseous distention of stomach recommend, NG tube placement intermittent suction and supportive care Disposition monitor closely wean will oxygen;, 2 -4 to 5 L nasal cannula, and discharge when stable. Patient already has home oxygen 09/02: Remains hypoxic and hypercapnic, somnolent post Ativan, on high flow O2 30 to 40 L, high-dose Solu-Medrol and NG tube for gastric distention. wean FiO2 as tolerated and BiPAP as needed for the hypercapnia, recheck ABG. Discussed with the pulmonary and nursing staff. 09/03: Off BiPAP this morning, continue to follow serum glucose, patient on high-dose steroid, continue high flow O2 and wean off as tolerated. Repeat abdominal x-ray showed non significant normal bowel gas pattern. Will initiate on clear liquid diet, will monitor off NG tube. 09/04;follow clinically, empiric steroid, wean off O2 as tolerated,on high flow O2.advance diet as tolerated. monitorblood glucose and adjust insulin prn 09/05: Follow clinically, consistent carb diet, high-dose empiric steroid, wean off O2 as tolerated. Transfer out of intermediate care to [facility] with telemetry. 09/06: Remains on high flow O2 25 L, supportive care, wean off O2 as tolerated, adjust serum blood glucose with insulin, tolerating consistent carb diet. 09/07/21: Continue to replete electrolytes and monitor. Wean off O2 as tolerated, guarded prognosis, continue empiric steroid. Follow clinically. 09/08/21;replete and monitor potassium, wean off O2 as tolerated. Patient remains on 25 L high flow O2. Continue empiric steroid, follow clinically. 09/09/21; spiking temp, will order pancultures, repeat chest x-ray, guarded prognosis, remains on 25 L high flow O2, follow clinically 09/10; patient is afebrile, remains on high flow 25 L nasal cannula oxygen, wean as tolerated, patient already has home oxygen Wean aggressively as tolerated, if no improvement consider hospice 09/11; patient's urine cultures positive for gram-negative rods, will add Levaquin 750 mg IV daily, follow culture sensitivities and adjust as needed Patient is anxious, has intermittent panic episodes, continue Xanax, consult psy ch 09/12; urine cultures positive for E. coli, sensitivities include Levaquin, remains on high flow nasal cannula oxygen, wean as tolerated Consults and recommendations noted and appreciated 09/13; sepsis due to UTI E. coli, remains on high flow nasal cannula oxygen, wean as tolerated, psych evaluation noted no new recommendations 09/14/21: On HFNC 20 L/35% FiO2/95 O2 sats, wean as tolerated, continue current management 09/15/21; remains an HFNC oxygen, chronically ill looking. Consider LTAC pl acement, social issues History Interval history: I have seen and examined the patient at the bedside Patient's chart and medications reviewed Patient remains on high flow nasal cannula oxygen Unable to wean Vital signs noted Hospitalist Physical - Constitutional Vitals: Temp Pulse Resp BP Pulse Ox 97.4 F L 100 H 18 119/76 94 09/14/21 21:51 09/14/21 21:51 09/15/21 07:16 09/14/21 21:51 09/14/21 22:00 General appearance: Present: mild distress, well-nourished, other (On high flow oxygen, more alert and awake) - EENT Eyes: Present: PERRL, EOM intact - Neck Neck: Present: supple, normal ROM - Respiratory Respiratory effort: normal Respiratory: bilateral: diminished, negative: rales, rhonchi, wheezing - Cardiovascular Rhythm: regular Heart Sounds: Present: S1 & S2 - Extremities Extremities: no ischemia, No edema - Abdominal General gastrointestinal: soft, non-tender, non-distended, normal bowel sounds - Integumentary Integumentary: Present: clear, warm - Psychiatric Psychiatric: appropriate mood/affect, depressed - Neurologic Neurologic: moves all extremities Results - Labs CBC & Chem 7: 09/08/21 04:31 09/09/21 07:50 Labs: Laboratory Last Values WBC 8.2 K/mm3 (4.5-11.0) 09/08/21 04:31 RBC 4.99 M/mm3 (3.65-5.03) 09/08/21 04:31 Hgb 14.2 gm/dl (10.1-14.3) 09/08/21 04:31 Hct 44.9 % (30.3-42.9) H 09/08/21 04:31 MCV 90 fl (79-97) 09/08/21 04:31 MCH 28 pg (28-32) 09/08/21 04:31 MCHC 32 % (30-34) 09/08/21 04:31 RDW 17.2 % (13.2-15.2) H 09/08/21 04:31 Plt Count 178 K/mm3 (140-440) 09/08/21 04:31 Lymph % (Auto) 12.3 % (13.4-35.0) L 09/08/21 04:31 Weld % (Auto) 6.6 % (0.0-7.3) 09/08/21 04:31 Eos % (Auto) 0.3 % (0.0-4.3) 09/08/21 04:31 Baso % (Auto) 1.7 % (0.0-1.8) 09/08/21 04:31 Lymph # (Auto) 1.0 K/mm3 (1.2-5.4) L 09/08/21 04:31 Weld # (Auto) 0.5 K/mm3 (0.0-0.8) 09/08/21 04:31 Eos # (Auto) 0.0 K/mm3 (0.0-0.4) 09/08/21 04:31 Baso # (Auto) 0.1 K/mm3 (0.0-0.1) 09/08/21 04:31 Add Manual Diff Complete 09/03/21 06:05 Total Counted 100 09/03/21 06:05 Seg Neutrophils % 79.1 % (40.0-70.0) H 09/08/21 04:31 Seg Neuts % (Manual) 94.0 % (40.0-70.0) H 09/03/21 06:05 Lymphocytes % (Manual) 3.0 % (13.4-35.0) L 09/03/21 06:05 Monocytes % (Manual) 3.0 % (0.0-7.3) 09/03/21 06:05 Nucleated RBC % Not Reportable 09/03/21 06:05 Seg Neutrophils # 6.5 K/mm3 (1.8-7.7) 09/08/21 04:31 Seg Neutrophils # Man 7.3 K/mm3 (1.8-7.7) 09/03/21 06:05 Band Neutrophils # 0.0 K/mm3 09/03/21 06:05 Lymphocytes # (Manual) 0.2 K/mm3 (1.2-5.4) L 09/03/21 06:05 Abs React Lymphs (Man) 0.0 K/mm3 09/03/21 06:05 Monocytes # (Manual) 0.2 K/mm3 (0.0-0.8) 09/03/21 06:05 Eosinophils # (Manual) 0.0 K/mm3 (0.0-0.4) 09/03/21 06:05 Basophils # (Manual) 0.0 K/mm3 (0.0-0.1) 09/03/21 06:05 Metamyelocytes # 0.0 K/mm3 09/03/21 06:05 Myelocytes # 0.0 K/mm3 09/03/21 06:05 Promyelocytes # 0.0 K/mm3 09/03/21 06:05 Blast Cells # 0.0 K/mm3 09/03/21 06:05 WBC Morphology Not Reportable 09/03/21 06:05 Hypersegmented Neuts Not Reportable 09/03/21 06:05 Hyposegmented Neuts Not Reportable 09/03/21 06:05 Hypogranular Neuts Not Reportable 09/03/21 06:05 Smudge Cells Not Reportable 09/03/21 06:05 Toxic Granulation Not Reportable 09/03/21 06:05 Toxic Vacuolation Not Reportable 09/03/21 06:05 Dohle Bodies Not Reportable 09/03/21 06:05 Pelger-Huet Anomaly Not Reportable 09/03/21 06:05 Janelle Rods Not Reportable 09/03/21 06:05 Platelet Estimate Consistent w auto 09/03/21 06:05 Clumped Platelets Not Reportable 09/03/21 06:05 Plt Clumps, EDTA Not Reportable 09/03/21 06:05 Large Platelets Not Reportable 09/03/21 06:05 Giant Platelets Not Reportable 09/03/21 06:05 Platelet Satelliting Not Reportable 09/03/21 06:05 Plt Morphology Comment Not Reportable 09/03/21 06:05 RBC Morphology Normal 09/03/21 06:05 Dimorphic RBCs Not Reportable 09/03/21 06:05 Polychromasia Not Reportable 09/03/21 06:05 Hypochromasia Not Reportable 09/03/21 06:05 Poikilocytosis 1+ 09/03/21 06:05 Anisocytosis Not Reportable 09/03/21 06:05 Microcytosis Not Reportable 09/03/21 06:05 Macrocytosis Not Reportable 09/03/21 06:05 Spherocytes Not Reportable 09/03/21 06:05 Pappenheimer Bodies Not Reportable 09/03/21 06:05 Sickle Cells Not Reportable 09/03/21 06:05 Target Cells Not Reportable 09/03/21 06:05 Tear Drop Cells Not Reportable 09/03/21 06:05 Ovalocytes Not Reportable 09/03/21 06:05 Stomatocytes 3+ 09/03/21 06:05 Helmet Cells Not Reportable 09/03/21 06:05 [place] Bodies Not Reportable 09/03/21 06:05 [place] Rings Not Reportable 09/03/21 06:05 [place] Cells Not Reportable 09/03/21 06:05 Bite Cells Not Reportable 09/03/21 06:05 Crenated Cell Not Reportable 09/03/21 06:05 Elliptocytes Not Reportable 09/03/21 06:05 Acanthocytes (Spur) Not Reportable 09/03/21 06:05 Rouleaux Not Reportable 09/03/21 06:05 Hemoglobin C Crystals Not Reportable 09/03/21 06:05 Schistocytes Not Reportable 09/03/21 06:05 Malaria parasites Not Reportable 09/03/21 06:05 Justin Bodies Not Reportable 09/03/21 06:05 Hem Pathologist Commnt No 09/03/21 06:05 D-Dimer 710.59 ng/mlDDU (0-234) H 08/31/21 19:32 ABG pH 7.240 pH Units (7.350-7.450) L 09/01/21 23:56 ABG pCO2 111.3 mm Hg 09/01/21 23:56 ABG pO2 198.0 mm Hg (80.0-90.0) H 09/01/21 23:56 ABG HCO3 46.6 mmol/L (20.0-26.0) H 09/01/21 23:56 ABG O2 Saturation 99.0 % (95.0-99.0) 09/01/21 23:56 ABG O2 Content 16.8 (0.0-44) 09/01/21 23:56 ABG Base Excess 14.8 mmol/L (-2.0-3.0) H 09/01/21 23:56 ABG Hemoglobin 12.0 gm/dl (12.0-16.0) 09/01/21 23:56 ABG Carboxyhemoglobin 1.6 % (0.0-5.0) 09/01/21 23:56 ABG Methemoglobin 0.6 % (0.0-1.5) 09/01/21 23:56 Oxyhemoglobin 96.8 % (95.0-99.0) 09/01/21 23:56 FiO2 60 % 09/01/21 23:56 Sodium 138 mmol/L (137-145) 09/09/21 07:50 Potassium 4.7 mmol/L (3.6-5.0) D 09/09/21 07:50 Chloride 88.8 mmol/L (98-107) L 09/09/21 07:50 Carbon Dioxide 39 mmol/L (22-30) H 09/09/21 07:50 Anion Gap 15 mmol/L 09/09/21 07:50 BUN 14 mg/dL (7-17) 09/09/21 07:50 Creatinine < 0.2 mg/dL (0.6-1.2) L 09/09/21 07:50 Estimated GFR > 60 ml/min 09/09/21 07:50 BUN/Creatinine Ratio 70 % 09/09/21 07:50 Glucose 197 mg/dL (65-100) H 09/09/21 07:50 POC Glucose 247 mg/dL (70-105) H 09/15/21 18:05 Calcium 8.8 mg/dL (8.4-10.2) 09/09/21 07:50 Magnesium 2.10 mg/dL (1.7-2.3) 09/08/21 04:31 Total Bilirubin 0.30 mg/dL (0.1-1.2) 09/03/21 06:05 AST 29 units/L (5-40) 09/03/21 06:05 ALT 71 units/L (7-56) H 09/03/21 06:05 Alkaline Phosphatase 82 units/L (35-129) 09/03/21 06:05 NT-Pro-B Natriuret Pep 524.1 pg/mL (0-450) H 08/31/21 19:32 Total Protein 7.0 g/dL (6.3-8.2) 09/03/21 06:05 Albumin 3.8 g/dL (3.9-5) L 09/03/21 06:05 Albumin/Globulin Ratio 1.2 % 09/03/21 06:05 HCG, Qual Negative (Negative) 08/31/21 19:32 Urine Color Yellow (Yellow) 09/10/21 07:00 Urine Turbidity Cloudy (Clear) 09/10/21 07:00 Urine pH 7.0 (5.0-7.0) 09/10/21 07:00 Ur Specific [place] 1.022 (1.003-1.030) 09/10/21 07:00 Urine Protein <15 mg/dl mg/dL (Negative) 09/10/21 07:00 Urine Glucose (UA) >=500 mg/dL (Negative) 09/10/21 07:00 Urine Ketones Neg mg/dL (Negative) 09/10/21 07:00 Urine Blood Sm (Negative) 09/10/21 07:00 Urine Nitrite Neg (Negative) 09/10/21 07:00 Urine Bilirubin Neg (Negative) 09/10/21 07:00 Urine Urobilinogen < 2.0 mg/dL (<2.0) 09/10/21 07:00 Ur Leukocyte Esterase Mod (Negative) 09/10/21 07:00 Urine WBC (Auto) 24.0 /HPF (0.0-6.0) H 09/10/21 07:00 Urine RBC (Auto) 17.0 /HPF (0.0-6.0) 09/10/21 07:00 U Epithel Cells (Auto) 3.0 /HPF (0-13.0) 09/10/21 07:00 Urine Bacteria (Auto) 2+ /HPF (Negative) 09/10/21 07:00 Calcium Oxalate Crystal Few 09/10/21 07:00 Urine Mucus 1+ /HPF 09/10/21 07:00 Ur Yeast w Hyphae Few /HPF 09/10/21 07:00 Urine Yeast (Budding) Few /HPF 09/10/21 07:00 Microbiology: Microbiology 09/09/21 18:02 Peripheral/Venous Blood Culture - Final NO GROWTH AFTER 5 DAYS 09/09/21 18:02 Peripheral/Venous Blood Culture - Final NO GROWTH AFTER 5 DAYS Amos/IV: Voiding Method External Female Catheter Active Medications - Current Medications Current Medications: Generic Name Dose Route Start Last Admin Trade Name Freq PRN Reason Stop Dose Admin Acetaminophen 650 mg 09/01/21 01:25 09/15/21 12:14 Acetaminophen 325 Mg Tab PO 650 mg Q4H PRN Administration Pain MILD(1-3)/Fever >100.5/[place] Albuterol 2.5 mg 09/01/21 01:25 09/14/21 14:56 Albuterol 2.5 Mg/3 Ml Nebu IH 2.5 mg Q3HRT PRN Administration Shortness Of Breath Alprazolam 1 mg 09/01/21 01:38 09/15/21 13:10 Alprazolam 1 Mg Tab PO 1 mg BID PRN Administration Agitation Dextrose 50 ml 09/01/21 01:25 Dextrose 50% In Water (25gm) 50 Ml Syringe IV Q30MIN PRN Hypoglycemia Protocol Famotidine 20 mg 09/01/21 10:00 09/15/21 11:15 Famotidine 20 Mg Tab PO 20 mg BID TUTU Administration Heparin Sodium (Porcine) 5,000 unit 09/01/21 06:00 09/15/21 13:05 Heparin 5,000 Unit/1 Ml Vial SUB-Q 5,000 unit Q8HR TUTU Administration Insulin Glargine 15 units 09/15/21 18:37 Insulin Glargine 100 Units/Ml SUB-Q QHS TUTU Insulin Human Lispro 0 unit 09/01/21 07:30 09/15/21 12:41 Insulin Lispro 100 Unit/Ml SUB-Q 4 unit ACHS TUTU Administration Protocol Levofloxacin 250 mg 09/12/21 11:00 09/15/21 11:15 Levofloxacin 250 Mg Tab PO 09/16/21 10:59 250 mg Q24HR TUTU Administration Protocol Methylprednisolone Sodium Succinate 40 mg 09/12/21 22:00 09/15/21 13:05 Methylprednisolone Sod Succinate 40 Mg/1 Ml Inj IV 40 mg Q8HR TUTU Administration Ondansetron HCl 4 mg 09/01/21 01:25 09/05/21 15:12 Ondansetron 4 Mg/2 Ml Inj IV 4 mg Q8H PRN Administration Nausea And Vomiting Sodium Chloride 10 ml 09/01/21 10:00 09/15/21 13:05 Sodium Chloride 0.9% 10 Ml Flush Syringe IV 10 ml BID TUTU Administration Sodium Chloride 10 ml 09/01/21 01:25 09/01/21 14:16 Sodium Chloride 0.9% 10 Ml Flush Syringe IV 10 ml PRN PRN Administration LINE FLUSH Nutrition/Malnutrition Assess - Dietary Evaluation Nutrition/Malnutrition Findings: Nutrition Notes Start: 09/01/21 12:25 Freq: Status: Active Protocol: Document 09/09/21 14:03 SAQIB (Rec: 09/09/21 14:18 SAQIB [id number]) Nutrition Notes Initial or Follow up Brief Note Current Diagnosis Diabetes,Respiratory Failure Other Pertinent Diagnosis Post COVID-19 Syndrome, hypercapnia, [place]. Current Diet Consistent Carbohydrates Diet (since B 09/06). Height 5 ft 2 in Weight 54 kg [place] Body Weight (kg) 50.00 BMI 21.7 Weight change and time frame No body weight change reported . Weight Status Appropriate Subjective/Other Information RD consult on dietary advancement, %PO tolerance and intake of meals. Pt's current %PO intake of meals is close to 75%, according to ADL notes. Percent of energy/protein needs met: Prescribed Consistent Carbohydrates Diet provides for energy/protein needs (2, 061 Kcal/91 g) during LOS. Current % PO Fair (50-74%) Nutrition Intervention Change Diet Order: Continue Consistent Carbohydrates Diet. Goal #1 Maintain body weight within +/ -3% of admission body weight during LOS. Goal #2 Reach and maintain acceptable chemistry lab values during LOS. Follow-Up By: 09/16/21 Additional Comments Continue monitoring food tolerance, %PO intake of meals , Hydration, and BM.
[2021-09-15] MEDS: INSULIN GLARGINE 100 UNITS/ML SUB-Q SCH (22:53)
[2021-09-16] MEDS: HEPARIN 5,000 UNIT/1 ML VIAL SUB-Q SCH ×3 (06:08→22:23)
[2021-09-16] MEDS: methylPREDNISolone Sod Succinate 40 MG/1 ML INJ IV SCH ×3 (06:08→22:27)
--- NOTE | 2021-09-16 08:49 | Progress Note ---
Assessment and Plan Assessment and plan: Uncontrolled blood sugars probably secondary to steroids, increase Lantus to 15 units subcu daily --Sepsis secondary to UTI/E. 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 Gomes PCR test is negative Severe hypoxic and hypercapnic respiratory failure, required BiPAP on admission Patient was on 10 L of nasal cannula oxygen/100% nonrebreather/BiPAP, currently on high flow O2 25 L X-ray chest show moderate gaseous distention of the stomach severe diffuse bilateral chronic parenchymal opacities that have not changed chest x-ray Patient was recently discharged on on home 3 L oxygen CTA chest; no CT evidence of PE, diffuse severe bilateral mixed interstitial and alveolar opacities CT head without contrast; there is 2 small 2 to 3 mm focus of calcification jeff g the lateral left frontal lobe which appears to be incidental, Patient is receiving currently high-dose Solu-Medrol therapy, per pulmonary --Abdominal distention with ileus[present on admission] resolved Repeat abdomen x-ray 09/03 showed no gaseous distention, now tolerating diet --Type 2 diabetes mellitus Continue home insulin and coverage Follow hemoglobin A1c, SSI as needed --Generalized anxiety disorder Continue Xanax as necessary Psych consult --Hypokalemia: Closely monitor electrolytes and replenish as needed --DVT prophylaxis On Lovenox and GI prophylaxis --Brief history and daily hospital course: 50-year-old female patient was admitted with COVID-19 pneumonia severe hypoxic hypercapnic respiratory failure had a prolonged stay in the hospital for 3 to 4 months and was discharged on 08/28/2021 on home oxygen and long-term steroids and other supportive care, patient again was admitted on the stabilized and discharged on the . patient already has home oxygen and all the medications are needed. Patient readmitted 09/01/21 with acute hypoxic respiratory failure and altered level of consciousness, s/p BiPAP, chest x-ray gaseous distention of the stomach. Pulmonary following, patient also has generalized anxiety on Xanax. 09/01/2021; on intermittent BiPAP, chest x-ray gaseous distention of stomach recommend, NG tube placement intermittent suction and supportive care Disposition monitor closely wean will oxygen;, 2 -4 to 5 L nasal cannula, and discharge when stable. Patient already has home oxygen 09/02: Remains hypoxic and hypercapnic, somnolent post Ativan, on high flow O2 30 to 40 L, high-dose Solu-Medrol and NG tube for gastric distention. wean FiO2 as tolerated and BiPAP as needed for the hypercapnia, recheck ABG. Discussed with the pulmonary and nursing staff. 09/03: Off BiPAP this morning, continue to follow serum glucose, patient on high-dose steroid, continue high flow O2 and wean off as tolerated. Repeat abdominal x-ray showed non significant normal bowel gas pattern. Will initiate on clear liquid diet, will monitor off NG tube. 09/04;follow clinically, empiric steroid, wean off O2 as tolerated,on high flow O2.advance diet as tolerated. monitorblood glucose and adjust insulin prn 09/05: Follow clinically, consistent carb diet, high-dose empiric steroid, wean off O2 as tolerated. Transfer [facility] of intermediate [facility] to [facility] with telem etry. 09/06: Remains on high flow O2 25 L, supportive care, wean off O2 as tolerated, adjust serum blood glucose with insulin, tolerating consistent carb diet. 09/07/21: Continue to replete electrolytes and monitor. Wean off O2 as tolerated, guarded prognosis, continue empiric steroid. Follow clinically. 09/08/21;replete and monitor potassium, wean off O2 as tolerated. Patient remains on 25 L high flow O2. Continue empiric steroid, follow clinically. 09/09/21; spiking temp, will order pancultures, repeat chest x-ray, guarded prognosis, remains on 25 L high flow O2, follow clinically 09/10; patient is afebrile, remains on high flow 25 L nasal cannula oxygen, wean as tolerated, patient already has home oxygen Wean aggressively as tolerated, if no improvement consider hospice 09/11; patient's urine cultures positive for gram-negative rods, will add Levaquin 750 mg IV daily, follow culture sensitivities and adjust as needed Patient is anxious, has intermittent panic episodes, continue Xanax, consult psych 09/12; urine cultures positive for E. coli, sensitivities include Levaquin, remains on high flow nasal cannula oxygen, wean as tolerated Consults and recommendations noted and appreciated 09/13; sepsis due to UTI E. coli, remains on high flow nasal cannula oxygen, wean as tolerated, psych evaluation noted no new recommendations 09/14/21: On HFNC 20 L/35% FiO2/95 O2 sats, wean as tolerated, continue current management 09/15/21; remains an HFNC oxygen, chronically ill looking. Consider LTAC placement, social issues 09/16/2021; on 30 L HFNC O2, wean as tolerated History Interval history: Seen and examined the patient at the bedside Patient's chart and medications reviewed Patient is requiring high flow nasal cannula 30 L 35% FiO2 94% oxygen saturation Patient is chronically ill looking cachectic And anxious Hospitalist Physical - Constitutional Vitals: Temp Pulse Resp BP Pulse Ox 97.2 F L 93 H 18 130/78 94 09/16/21 04:30 09/16/21 04:30 09/16/21 04:30 09/16/21 04:30 09/16/21 08:11 General appearance: Present: mild distress, well-nourished, other (On high flow oxygen, more alert and awake) - EENT Eyes: Present: PERRL, EOM intact - Neck Neck: Present: supple, normal ROM - Respiratory Respiratory effort: normal Respiratory: bilateral: diminished, negative: rales, rhonchi, wheezing - Cardiovascular Rhythm: regular Heart Sounds: Present: S1 & S2 - Extremities Extremities: no ischemia, No edema - Abdominal General gastrointestinal: soft, non-tender, non-distended, normal bowel sounds - Integumentary Integumentary: Present: clear, warm - Psychiatric Psychiatric: appropriate mood/affect, cooperative - Neurologic Neurologic: CNII-XII intact, moves all extremities Results - Labs CBC & Chem 7: 09/08/21 04:31 09/09/21 07:50 Labs: Laboratory Last Values WBC 8.2 K/mm3 (4.5-11.0) 09/08/21 04:31 RBC 4.99 M/mm3 (3.65-5.03) 09/08/21 04:31 Hgb 14.2 gm/dl (10.1-14.3) 09/08/21 04:31 Hct 44.9 % (30.3-42.9) H 09/08/21 04:31 MCV 90 fl (79-97) 09/08/21 04:31 MCH 28 pg (28-32) 09/08/21 04:31 MCHC 32 % (30-34) 09/08/21 04:31 RDW 17.2 % (13.2-15.2) H 09/08/21 04:31 Plt Count 178 K/mm3 (140-440) 09/08/21 04:31 Lymph % (Auto) 12.3 % (13.4-35.0) L 09/08/21 04:31 Saline % (Auto) 6.6 % (0.0-7.3) 09/08/21 04:31 Eos % (Auto) 0.3 % (0.0-4.3) 09/08/21 04:31 Baso % (Auto) 1.7 % (0.0-1.8) 09/08/21 04:31 Lymph # (Auto) 1.0 K/mm3 (1.2-5.4) L 09/08/21 04:31 Saline # (Auto) 0.5 K/mm3 (0.0-0.8) 09/08/21 04:31 Eos # (Auto) 0.0 K/mm3 (0.0-0.4) 09/08/21 04:31 Baso # (Auto) 0.1 K/mm3 (0.0-0.1) 09/08/21 04:31 Add Manual Diff Complete 09/03/21 06:05 Total Counted 100 09/03/21 06:05 Seg Neutrophils % 79.1 % (40.0-70.0) H 09/08/21 04:31 Seg Neuts % (Manual) 94.0 % (40.0-70.0) H 09/03/21 06:05 Lymphocytes % (Manual) 3.0 % (13.4-35.0) L 09/03/21 06:05 Monocytes % (Manual) 3.0 % (0.0-7.3) 09/03/21 06:05 Nucleated RBC % Not Reportable 09/03/21 06:05 Seg Neutrophils # 6.5 K/mm3 (1.8-7.7) 09/08/21 04:31 Seg Neutrophils # Man 7.3 K/mm3 (1.8-7.7) 09/03/21 06:05 Band Neutrophils # 0.0 K/mm3 09/03/21 06:05 Lymphocytes # (Manual) 0.2 K/mm3 (1.2-5.4) L 09/03/21 06:05 Abs React Lymphs (Man) 0.0 K/mm3 09/03/21 06:05 Monocytes # (Manual) 0.2 K/mm3 (0.0-0.8) 09/03/21 06:05 Eosinophils # (Manual) 0.0 K/mm3 (0.0-0.4) 09/03/21 06:05 Basophils # (Manual) 0.0 K/mm3 (0.0-0.1) 09/03/21 06:05 Metamyelocytes # 0.0 K/mm3 09/03/21 06:05 Myelocytes # 0.0 K/mm3 09/03/21 06:05 Promyelocytes # 0.0 K/mm3 09/03/21 06:05 Blast Cells # 0.0 K/mm3 09/03/21 06:05 WBC Morphology Not Reportable 09/03/21 06:05 Hypersegmented Neuts Not Reportable 09/03/21 06:05 Hyposegmented Neuts Not Reportable 09/03/21 06:05 Hypogranular Neuts Not Reportable 09/03/21 06:05 Smudge Cells Not Reportable 09/03/21 06:05 Toxic Granulation Not Reportable 09/03/21 06:05 Toxic Vacuolation Not Reportable 09/03/21 06:05 Dohle Bodies Not Reportable 09/03/21 06:05 Pelger-Huet Anomaly Not Reportable 09/03/21 06:05 Janelle Rods Not Reportable 09/03/21 06:05 Platelet Estimate Consistent w auto 09/03/21 06:05 Clumped Platelets Not Reportable 09/03/21 06:05 Plt Clumps, EDTA Not Reportable 09/03/21 06:05 Large Platelets Not Reportable 09/03/21 06:05 Giant Platelets Not Reportable 09/03/21 06:05 Platelet Satelliting Not Reportable 09/03/21 06:05 Plt Morphology Comment Not Reportable 09/03/21 06:05 RBC Morphology Normal 09/03/21 06:05 Dimorphic RBCs Not Reportable 09/03/21 06:05 Polychromasia Not Reportable 09/03/21 06:05 Hypochromasia Not Reportable 09/03/21 06:05 Poikilocytosis 1+ 09/03/21 06:05 Anisocytosis Not Reportable 09/03/21 06:05 Microcytosis Not Reportable 09/03/21 06:05 Macrocytosis Not Reportable 09/03/21 06:05 Spherocytes Not Reportable 09/03/21 06:05 Pappenheimer Bodies Not Reportable 09/03/21 06:05 Sickle Cells Not Reportable 09/03/21 06:05 Target Cells Not Reportable 09/03/21 06:05 Tear Drop Cells Not Reportable 09/03/21 06:05 Ovalocytes Not Reportable 09/03/21 06:05 Stomatocytes 3+ 09/03/21 06:05 Helmet Cells Not Reportable 09/03/21 06:05 Ahu[place] Bodies Not Reportable 09/03/21 06:05 Reeder Rings Not Reportable 09/03/21 06:05 Crow Cells Not Reportable 09/03/21 06:05 Bite Cells Not Reportable 09/03/21 06:05 Crenated Cell Not Reportable 09/03/21 06:05 Elliptocytes Not Reportable 09/03/21 06:05 Acanthocytes (Spur) Not Reportable 09/03/21 06:05 Rouleaux Not Reportable 09/03/21 06:05 Hemoglobin C Crystals Not Reportable 09/03/21 06:05 Schistocytes Not Reportable 09/03/21 06:05 Malaria parasites Not Reportable 09/03/21 06:05 Justin Bodies Not Reportable 09/03/21 06:05 Hem Pathologist Commnt No 09/03/21 06:05 D-Dimer 710.59 ng/mlDDU (0-234) H 08/31/21 19:32 ABG pH 7.240 pH Units (7.350-7.450) L 09/01/21 23:56 ABG pCO2 111.3 mm Hg 09/01/21 23:56 ABG pO2 198.0 mm Hg (80.0-90.0) H 09/01/21 23:56 ABG HCO3 46.6 mmol/L (20.0-26.0) H 09/01/21 23:56 ABG O2 Saturation 99.0 % (95.0-99.0) 09/01/21 23:56 ABG O2 Content 16.8 (0.0-44) 09/01/21 23:56 ABG Base Excess 14.8 mmol/L (-2.0-3.0) H 09/01/21 23:56 ABG Hemoglobin 12.0 gm/dl (12.0-16.0) 09/01/21 23:56 ABG Carboxyhemoglobin 1.6 % (0.0-5.0) 09/01/21 23:56 ABG Methemoglobin 0.6 % (0.0-1.5) 09/01/21 23:56 Oxyhemoglobin 96.8 % (95.0-99.0) 09/01/21 23:56 FiO2 60 % 09/01/21 23:56 Sodium 138 mmol/L (137-145) 09/09/21 07:50 Potassium 4.7 mmol/L (3.6-5.0) D 09/09/21 07:50 Chloride 88.8 mmol/L (98-107) L 09/09/21 07:50 Carbon Dioxide 39 mmol/L (22-30) H 09/09/21 07:50 Anion Gap 15 mmol/L 09/09/21 07:50 BUN 14 mg/dL (7-17) 09/09/21 07:50 Creatinine < 0.2 mg/dL (0.6-1.2) L 09/09/21 07:50 Estimated GFR > 60 ml/min 09/09/21 07:50 BUN/Creatinine Ratio 70 % 09/09/21 07:50 Glucose 197 mg/dL (65-100) H 09/09/21 07:50 POC Glucose 196 mg/dL (70-105) H 09/16/21 07:51 Calcium 8.8 mg/dL (8.4-10.2) 09/09/21 07:50 Magnesium 2.10 mg/dL (1.7-2.3) 09/08/21 04:31 Total Bilirubin 0.30 mg/dL (0.1-1.2) 09/03/21 06:05 AST 29 units/L (5-40) 09/03/21 06:05 ALT 71 units/L (7-56) H 09/03/21 06:05 Alkaline Phosphatase 82 units/L (35-129) 09/03/21 06:05 NT-Pro-B Natriuret Pep 524.1 pg/mL (0-450) H 08/31/21 19:32 Total Protein 7.0 g/dL (6.3-8.2) 09/03/21 06:05 Albumin 3.8 g/dL (3.9-5) L 09/03/21 06:05 Albumin/Globulin Ratio 1.2 % 09/03/21 06:05 HCG, Qual Negative (Negative) 08/31/21 19:32 Urine Color Yellow (Yellow) 09/10/21 07:00 Urine Turbidity Cloudy (Clear) 09/10/21 07:00 Urine pH 7.0 (5.0-7.0) 09/10/21 07:[address] [place] 1.022 (1.003-1.030) 09/10/21 07:00 Urine Protein <15 mg/dl mg/dL (Negative) 09/10/21 07:00 Urine Glucose (UA) >=500 mg/dL (Negative) 09/10/21 07:00 Urine Ketones Neg mg/dL (Negative) 09/10/21 07:00 Urine Blood Sm (Negative) 09/10/21 07:00 Urine Nitrite Neg (Negative) 09/10/21 07:00 Urine Bilirubin Neg (Negative) 09/10/21 07:00 Urine Urobilinogen < 2.0 mg/dL (<2.0) 09/10/21 07:00 Ur Leukocyte Esterase Mod (Negative) 09/10/21 07:00 Urine WBC (Auto) 24.0 /HPF (0.0-6.0) H 09/10/21 07:00 Urine RBC (Auto) 17.0 /HPF (0.0-6.0) 09/10/21 07:00 U Epithel Cells (Auto) 3.0 /HPF (0-13.0) 09/10/21 07:00 Urine Bacteria (Auto) 2+ /HPF (Negative) 09/10/21 07:00 Calcium Oxalate Crystal Few 09/10/21 07:00 Urine Mucus 1+ /HPF 09/10/21 07:00 Ur Yeast w [place]phae Few /HPF 09/10/21 07:00 Urine Yeast (Budding) Few /HPF 09/10/21 07:00 Amos/IV: Voiding Method Incontinent Active Medications - Current Medications Current Medications: Generic Name Dose Route Start Last Admin Trade Name Freq PRN Reason Stop Dose Admin Acetaminophen 650 mg 09/01/21 01:25 09/15/21 23:06 Acetaminophen 325 Mg Tab PO 650 mg Q4H PRN Administration Pain MILD(1-3)/Fever >100.5/[place] Albuterol 2.5 mg 09/01/21 01:25 09/14/21 14:56 Albuterol 2.5 Mg/3 Ml Nebu IH 2.5 mg Q3HRT PRN Administration Shortness Of Breath Alprazolam 1 mg 09/01/21 01:38 09/15/21 22:51 Alprazolam 1 Mg Tab PO 1 mg BID PRN Administration Agitation Dextrose 50 ml 09/01/21 01:25 Dextrose 50% In Water (25gm) 50 Ml Syringe IV Q30MIN PRN Hypoglycemia Protocol Famotidine 20 mg 09/01/21 10:00 09/15/21 22:52 Famotidine 20 Mg Tab PO 20 mg BID TUTU Administration Heparin Sodium (Porcine) 5,000 unit 09/01/21 06:00 09/16/21 06:08 Heparin 5,000 Unit/1 Ml Vial SUB-Q 5,000 unit Q8HR TUTU Administration Insulin Glargine 15 units 09/15/21 18:37 09/15/21 22:53 Insulin Glargine 100 Units/Ml SUB-Q 15 units QHS TUTU Administration Insulin Human Lispro 0 unit 09/01/21 07:30 09/15/21 22:52 Insulin Lispro 100 Unit/Ml SUB-Q 6 unit ACHS TUTU Administration Protocol Levofloxacin 250 mg 09/12/21 11:00 09/15/21 11:15 Levofloxacin 250 Mg Tab PO 09/16/21 10:59 250 mg Q24HR TUTU Administration Protocol Methylprednisolone Sodium Succinate 40 mg 09/12/21 22:00 09/16/21 06:08 Methylprednisolone Sod Succinate 40 Mg/1 Ml Inj IV 40 mg Q8HR TUTU Administration Ondansetron HCl 4 mg 09/01/21 01:25 09/05/21 15:12 Ondansetron 4 Mg/2 Ml Inj IV 4 mg Q8H PRN Administration Nausea And Vomiting Sodium Chloride 10 ml 09/01/21 10:00 09/15/21 22:54 Sodium Chloride 0.9% 10 Ml Flush Syringe IV 10 ml BID TUTU Administration Sodium Chloride 10 ml 09/01/21 01:25 09/01/21 14:16 Sodium Chloride 0.9% 10 Ml Flush Syringe IV 10 ml PRN PRN Administration LINE FLUSH Nutrition/Malnutrition Assess - Dietary Evaluation Nutrition/Malnutrition Findings: Nutrition Notes Start: 09/01/21 12 :25 Freq: Status: Active Protocol: Document 09/09/21 14:03 SAQIB (Rec: 09/09/21 14:18 SAQIB [id number]) Nutrition Notes Initial or Follow up Brief Note Current Diagnosis Diabetes,Respiratory Failure Other Pertinent Diagnosis Post COVID-19 Syndrome, hypercapnia, [place]. Current Diet Consistent Carbohydrates Diet (since B 09/06). Height 5 ft 2 in Weight 54 kg [place] Body Weight (kg) 50.00 BMI 21.7 Weight change and time frame No body weight change reported . Weight Status Appropriate Subjective/Other Information RD consult on dietary advancement, %PO tolerance and intake of meals. Pt's current %PO intake of meals is close to 75%, according to ADL notes. Percent of energy/protein needs met: Prescribed Consistent Carbohydrates Diet provides for energy/protein needs (2, 061 Kcal/91 g) during LOS. Current % PO Fair (50-74%) Nutrition Intervention Change Diet Order: Continue Consistent Carbohydrates Diet. Goal #1 Maintain body weight within +/ -3% of admission body weight during LOS. Goal #2 Reach and maintain acceptable chemistry lab values during LOS. Follow-Up By: 09/16/21 Additional Comments Continue monitoring food tolerance, %PO intake of meals , Hydration, and BM.
[2021-09-16] MEDS: levoFLOXacin 250 MG TAB PO SCH (09:54)
[2021-09-16] MEDS: ACETAMINOPHEN 325 MG TAB PO PRN ×2 (09:54→22:33)
[2021-09-16] MEDS: INSULIN LISPRO 100 UNIT/ML SUB-Q SCH ×4 (09:54→22:22)
[2021-09-16] MEDS: FAMOTIDINE 20 MG TAB PO SCH ×2 (09:54→22:25)
[2021-09-16] MEDS ORDERED: FUROSEMIDE 20 MG/2 ML INJ IV NR (12:40)
--- NOTE | 2021-09-16 12:42 | Progress Note ---
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 Prone as tolerated. Wean Flow and FiO2 for sats >88% 09/12/21: No new recs. Will drop steroids to 40q8 09/10/21: Please be more aggressive with oxygen weaning. Will consider weaning steroids again or Thursday. 09/08/21: Continue steroids at current dosing. Wean Fio2 for sats >88%. 09/06/21: Will drop steroids to 60 q8 starting now. 09/04/21: Will start to taper steroids today. Continue to wean FiO2 as tolerated. Anxiety control. High dose steroids Anxiety therapy Wean FiO2 as tolerated ABG not indicated currently as she is sleepy from IV ativan administered because she is NPO and could not get her xanax Subjective Date of service: 09/16/21 Interval history: Back and forth between 20 and 30 liters of flow with FiO2 still at 35%. Remainder is negative Objective Vital Signs - 12hr 09/16/21 09/16/21 09/16/21 03:28 04:30 08:11 Temperature 97.2 F L Pulse Rate 93 H Respiratory 18 Rate Blood Pressure 130/78 O2 Sat by Pulse 94 100 94 Oximetry 09/16/21 09/16/21 10:54 11:27 Temperature 97.5 F L Pulse Rate 114 H Respiratory 18 18 Rate Blood Pressure 135/83 O2 Sat by Pulse 95 Oximetry CBC and BMP: 09/08/21 04:31 09/09/21 07:50 ABG, PT/INR, D-dimer: ABG ABG pH 7.240 pH Units (7.350-7.450) L 09/01/21 23:56 ABG pCO2 111.3 mm Hg 09/01/21 23:56 ABG pO2 198.0 mm Hg (80.0-90.0) H 09/01/21 23:56 ABG O2 Saturation 99.0 % (95.0-99.0) 09/01/21 23:56 PT/INR, D-dimer D-Dimer 710.59 ng/mlDDU (0-234) H 08/31/21 19:32 Abnormal lab findings: Abnormal Labs 08/31/21 08/31/21 08/31/21 19:32 19:32 19:32 Hct RDW 16.4 H Lymph % (Auto) [place] % (Auto) 9.0 H Lymph # (Auto) [place] # (Auto) 1.0 H Seg Neutrophils % 76.2 H Seg Neuts % (Manual) Lymphocytes % (Manual) Seg Neutrophils # 8.3 H Lymphocytes # (Manual) D-Dimer 710.59 H ABG pH ABG pO2 ABG HCO3 ABG O2 Saturation ABG Base Excess Sodium Potassium Chloride 92.7 L Carbon Dioxide 36 H BUN Creatinine 0.4 L D Glucose 249 H POC Glucose Calcium ALT NT-Pro-B Natriuret Pep Albumin Urine WBC (Auto) 08/31/21 08/31/21 09/01/21 19:32 21:05 09:24 Hct RDW Lymph % (Auto) [place] % (Auto) Lymph # (Auto) [place] # (Auto) Seg Neutrophils % Seg Neuts % (Manual) Lymphocytes % (Manual) Seg Neutrophils # Lymphocytes # (Manual) D-Dimer ABG pH 7.244 L ABG pO2 307.7 H ABG HCO3 47.9 H ABG O2 Saturation 99.4 H ABG Base Excess 16.0 H Sodium Potassium Chloride Carbon Dioxide BUN Creatinine Glucose POC Glucose 106 H Calcium ALT NT-Pro-B Natriuret Pep 524.1 H Albumin Urine WBC (Auto) 09/01/21 09/01/21 09/01/21 13:39 16:22 23:56 Hct RDW Lymph % (Auto) [place] % (Auto) Lymph # (Auto) [place] # (Auto) Seg Neutrophils % Seg Neuts % (Manual) Lymphocytes % (Manual) Seg Neutrophils # Lymphocytes # (Manual) D-Dimer ABG pH 7.240 L ABG pO2 198.0 H ABG HCO3 46.6 H ABG O2 Saturation ABG Base Excess 14.8 H Sodium Potassium Chloride Carbon Dioxide BUN Creatinine Glucose POC Glucose 154 H 188 H Calcium ALT NT-Pro-B Natriuret Pep Albumin Urine WBC (Auto) 09/02/21 09/02/21 09/02/21 01:49 07:22 07:22 Hct RDW 16.4 H Lymph % (Auto) [place] % (Auto) Lymph # (Auto) [place] # (Auto) Seg Neutrophils % Seg Neuts % (Manual) 97.0 H Lymphocytes % (Manual) 2.0 L Seg Neutrophils # Lymphocytes # (Manual) 0.1 L D-Dimer ABG pH ABG pO2 ABG HCO3 ABG O2 Saturation ABG Base Excess Sodium Potassium Chloride 82.7 L Carbon Dioxide 41 H* BUN 21 H Creatinine 0.3 L Glucose 198 H POC Glucose 132 H Calcium ALT NT-Pro-B Natriuret Pep Albumin Urine WBC (Auto) 09/02/21 09/02/21 09/02/21 08:29 11:27 16:59 Hct RDW Lymph % (Auto) [place] % (Auto) Lymph # (Auto) [place] # (Auto) Seg Neutrophils % Seg Neuts % (Manual) Lymphocytes % (Manual) Seg Neutrophils # Lymphocytes # (Manual) D-Dimer ABG pH ABG pO2 ABG HCO3 ABG O2 Saturation ABG Base Excess Sodium Potassium Chloride Carbon Dioxide BUN Creatinine Glucose POC Glucose 201 H 232 H 118 H Calcium ALT NT-Pro-B Natriuret Pep Albumin Urine WBC (Auto) 09/02/21 09/03/21 09/03/21 22:08 06:05 06:05 Hct RDW 16.5 H Lymph % (Auto) [place] % (Auto) Lymph # (Auto) [place] # (Auto) Seg Neutrophils % Seg Neuts % (Manual) 94.0 H Lymphocytes % (Manual) 3.0 L Seg Neutrophils # Lymphocytes # (Manual) 0.2 L D-Dimer ABG pH ABG pO2 ABG HCO3 ABG O2 Saturation ABG Base Excess Sodium Potassium Chloride 79.3 L Carbon Dioxide 52 H* D BUN 27 H Creatinine 0.2 L Glucose 228 H POC Glucose 241 H Calcium 10.4 H ALT 71 H NT-Pro-B Natriuret Pep Albumin 3.8 L Urine WBC (Auto) 09/03/21 09/03/21 09/03/21 07:53 11:37 15:52 Hct RDW Lymph % (Auto) [place] % (Auto) Lymph # (Auto) [place] # (Auto) Seg Neutrophils % Seg Neuts % (Manual) Lymphocytes % (Manual) Seg Neutrophils # Lymphocytes # (Manual) D-Dimer ABG pH ABG pO2 ABG HCO3 ABG O2 Saturation ABG Base Excess Sodium Potassium Chloride Carbon Dioxide BUN Creatinine Glucose POC Glucose 241 H 202 H 284 H Calcium ALT NT-Pro-B Natriuret Pep Albumin Urine WBC (Auto) 09/03/21 09/04/21 09/04/21 22:07 08:33 11:16 Hct RDW Lymph % (Auto) [place] % (Auto) Lymph # (Auto) [place] # (Auto) Seg Neutrophils % Seg Neuts % (Manual) Lymphocytes % (Manual) Seg Neutrophils # Lymphocytes # (Manual) D-Dimer ABG pH ABG pO2 ABG HCO3 ABG O2 Saturation ABG Base Excess Sodium Potassium Chloride Carbon Dioxide BUN Creatinine Glucose POC Glucose 311 H 232 H 356 H Calcium ALT NT-Pro-B Natriuret Pep Albumin Urine WBC (Auto) 09/04/21 09/04/21 09/05/21 17:10 23:05 08:08 Hct RDW Lymph % (Auto) [place] % (Auto) Lymph # (Auto) [place] # (Auto) Seg Neutrophils % Seg Neuts % (Manual) Lymphocytes % (Manual) Seg Neutrophils # Lymphocytes # (Manual) D-Dimer ABG pH ABG pO2 ABG HCO3 ABG O2 Saturation ABG Base Excess Sodium Potassium Chloride Carbon Dioxide BUN Creatinine Glucose POC Glucose 328 H 150 H 342 H Calcium ALT NT-Pro-B Natriuret Pep Albumin Urine WBC (Auto) 09/05/21 09/05/21 09/05/21 11:04 13:23 13:23 Hct RDW 17.1 H Lymph % (Auto) [place] % (Auto) Lymph # (Auto) [place] # (Auto) Seg Neutrophils % Seg Neuts % (Manual) Lymphocytes % (Manual) Seg Neutrophils # Lymphocytes # (Manual) D-Dimer ABG pH ABG pO2 ABG HCO3 ABG O2 Saturation ABG Base Excess Sodium Potassium 2.6 L* D Chloride 74.4 L Carbon Dioxide 46 H* BUN Creatinine 0.3 L Glucose 389 H POC Glucose 395 H Calcium ALT NT-Pro-B Natriuret Pep Albumin Urine WBC (Auto) 09/05/21 09/05/21 09/06/21 16:22 21:09 08:02 Hct RDW Lymph % (Auto) [place] % (Auto) Lymph # (Auto) [place] # (Auto) Seg Neutrophils % Seg Neuts % (Manual) Lymphocytes % (Manual) Seg Neutrophils # Lymphocytes # (Manual) D-Dimer ABG pH ABG pO2 ABG HCO3 ABG O2 Saturation ABG Base Excess Sodium Potassium Chloride Carbon Dioxide BUN Creatinine Glucose POC Glucose 195 H 243 H 119 H Calcium ALT NT-Pro-B Natriuret Pep Albumin Urine WBC (Auto) 09/06/21 09/06/21 09/06/21 11:00 11:19 16:06 Hct RDW Lymph % (Auto) [place] % (Auto) Lymph # (Auto) [place] # (Auto) Seg Neutrophils % Seg Neuts % (Manual) Lymphocytes % (Manual) Seg Neutrophils # Lymphocytes # (Manual) D-Dimer ABG pH ABG pO2 ABG HCO3 ABG O2 Saturation ABG Base Excess Sodium 136 L Potassium Chloride 78.3 L Carbon Dioxide 47 H* BUN Creatinine 0.3 L Glucose 354 H POC Glucose 309 H 381 H Calcium ALT NT-Pro-B Natriuret Pep Albumin Urine WBC (Auto) 09/06/21 09/07/21 09/07/21 22:25 11:11 16:50 Hct RDW Lymph % (Auto) [place] % (Auto) Lymph # (Auto) [place] # (Auto) Seg Neutrophils % Seg Neuts % (Manual) Lymphocytes % (Manual) Seg Neutrophils # Lymphocytes # (Manual) D-Dimer ABG pH ABG pO2 ABG HCO3 ABG O2 Saturation ABG Base Excess Sodium Potassium Chloride Carbon Dioxide BUN Creatinine Glucose POC Glucose 217 H 442 H 222 H Calcium ALT NT-Pro-B Natriuret Pep Albumin Urine WBC (Auto) 09/07/21 09/08/21 09/08/21 21:52 04:31 04:31 Hct 44.9 H RDW 17.2 H Lymph % (Auto) 12.3 L [place] % (Auto) Lymph # (Auto) 1.0 L [place] # (Auto) Seg Neutrophils % 79.1 H Seg Neuts % (Manual) Lymphocytes % (Manual) Seg Neutrophils # Lymphocytes # (Manual) D-Dimer ABG pH ABG pO2 ABG HCO3 ABG O2 Saturation ABG Base Excess Sodium Potassium 2.8 L* D Chloride 87.6 L Carbon Dioxide 45 H* BUN Creatinine 0.2 L Glucose 46 L POC Glucose 360 H Calcium ALT NT-Pro-B Natriuret Pep Albumin Urine WBC (Auto) 09/08/21 09/08/21 09/08/21 05:25 05:53 11:50 Hct RDW Lymph % (Auto) [place] % (Auto) Lymph # (Auto) [place] # (Auto) Seg Neutrophils % Seg Neuts % (Manual) Lymphocytes % (Manual) Seg Neutrophils # Lymphocytes # (Manual) D-Dimer ABG pH ABG pO2 ABG HCO3 ABG O2 Saturation ABG Base Excess Sodium Potassium Chloride Carbon Dioxide BUN Creatinine Glucose POC Glucose 39 L 64 L 280 H Calcium ALT NT-Pro-B Natriuret Pep Albumin Urine WBC (Auto) 09/08/21 09/08/21 09/09/21 16:20 21:32 07:20 Hct RDW Lymph % (Auto) [place] % (Auto) Lymph # (Auto) [place] # (Auto) Seg Neutrophils % Seg Neuts % (Manual) Lymphocytes % (Manual) Seg Neutrophils # Lymphocytes # (Manual) D-Dimer ABG pH ABG pO2 ABG HCO3 ABG O2 Saturation ABG Base Excess Sodium Potassium Chloride Carbon Dioxide BUN Creatinine Glucose POC Glucose 256 H 203 H 194 H Calcium ALT NT-Pro-B Natriuret Pep Albumin Urine WBC (Auto) 09/09/21 09/09/21 09/09/21 07:50 11:13 16:20 Hct RDW Lymph % (Auto) [place] % (Auto) Lymph # (Auto) [place] # (Auto) Seg Neutrophils % Seg Neuts % (Manual) Lymphocytes % (Manual) Seg Neutrophils # Lymphocytes # (Manual) D-Dimer ABG pH ABG pO2 ABG HCO3 ABG O2 Saturation ABG Base Excess Sodium Potassium Chloride 88.8 L Carbon Dioxide 39 H BUN Creatinine < 0.2 L Glucose 197 H POC Glucose 258 H 231 H Calcium ALT NT-Pro-B Natriuret Pep Albumin Urine WBC (Auto) 09/09/21 09/10/21 09/10/21 22:17 07:00 08:02 Hct RDW Lymph % (Auto) [place] % (Auto) Lymph # (Auto) [place] # (Auto) Seg Neutrophils % Seg Neuts % (Manual) Lymphocytes % (Manual) Seg Neutrophils # Lymphocytes # (Manual) D-Dimer ABG pH ABG pO2 ABG HCO3 ABG O2 Saturation ABG Base Excess Sodium Potassium Chloride Carbon Dioxide BUN Creatinine Glucose POC Glucose 222 H 213 H Calcium ALT NT-Pro-B Natriuret Pep Albumin Urine WBC (Auto) 24.0 H 09/10/21 09/10/21 09/10/21 11:22 15:49 22:08 Hct RDW Lymph % (Auto) [place] % (Auto) Lymph # (Auto) [place] # (Auto) Seg Neutrophils % Seg Neuts % (Manual) Lymphocytes % (Manual) Seg Neutrophils # Lymphocytes # (Manual) D-Dimer ABG pH ABG pO2 ABG HCO3 ABG O2 Saturation ABG Base Excess Sodium Potassium Chloride Carbon Dioxide BUN Creatinine Glucose POC Glucose 241 H 201 H 212 H Calcium ALT NT-Pro-B Natriuret Pep Albumin Urine WBC (Auto) 09/11/21 09/11/21 09/11/21 08:01 11:21 16:41 Hct RDW Lymph % (Auto) [place] % (Auto) Lymph # (Auto) [place] # (Auto) Seg Neutrophils % Seg Neuts % (Manual) Lymphocytes % (Manual) Seg Neutrophils # Lymphocytes # (Manual) D-Dimer ABG pH ABG pO2 ABG HCO3 ABG O2 Saturation ABG Base Excess Sodium Potassium Chloride Carbon Dioxide BUN Creatinine Glucose POC Glucose 207 H 265 H 234 H Calcium ALT NT-Pro-B Natriuret Pep Albumin Urine WBC (Auto) 09/11/21 09/12/21 09/12/21 22:09 08:38 11:28 Hct RDW Lymph % (Auto) [place] % (Auto) Lymph # (Auto) [place] # (Auto) Seg Neutrophils % Seg Neuts % (Manual) Lymphocytes % (Manual) Seg Neutrophils # Lymphocytes # (Manual) D-Dimer ABG pH ABG pO2 ABG HCO3 ABG O2 Saturation ABG Base Excess Sodium Potassium Chloride Carbon Dioxide BUN Creatinine Glucose POC Glucose 293 H 222 H 326 H Calcium ALT NT-Pro-B Natriuret Pep Albumin Urine WBC (Auto) 09/12/21 09/12/21 09/13/21 16:25 21:45 07:41 Hct RDW Lymph % (Auto) [place] % (Auto) Lymph # (Auto) [place] # (Auto) Seg Neutrophils % Seg Neuts % (Manual) Lymphocytes % (Manual) Seg Neutrophils # Lymphocytes # (Manual) D-Dimer ABG pH ABG pO2 ABG HCO3 ABG O2 Saturation ABG Base Excess Sodium Potassium Chloride Carbon Dioxide BUN Creatinine Glucose POC Glucose 130 H 191 H 165 H Calcium ALT NT-Pro-B Natriuret Pep Albumin Urine WBC (Auto) 09/13/21 09/13/21 09/13/21 11:12 16:59 22:01 Hct RDW Lymph % (Auto) [place] % (Auto) Lymph # (Auto) [place] # (Auto) Seg Neutrophils % Seg Neuts % (Manual) Lymphocytes % (Manual) Seg Neutrophils # Lymphocytes # (Manual) D-Dimer ABG pH ABG pO2 ABG HCO3 ABG O2 Saturation ABG Base Excess Sodium Potassium Chloride Carbon Dioxide BUN Creatinine Glucose POC Glucose 263 H 162 H 276 H Calcium ALT NT-Pro-B Natriuret Pep Albumin Urine WBC (Auto) 09/14/21 09/14/21 09/14/21 08:12 12:28 16:30 Hct RDW Lymph % (Auto) [place] % (Auto) Lymph # (Auto) [place] # (Auto) Seg Neutrophils % Seg Neuts % (Manual) Lymphocytes % (Manual) Seg Neutrophils # Lymphocytes # (Manual) D-Dimer ABG pH ABG pO2 ABG HCO3 ABG O2 Saturation ABG Base Excess Sodium Potassium Chloride Carbon Dioxide BUN Creatinine Glucose POC Glucose 179 H 212 H 227 H Calcium ALT NT-Pro-B Natriuret Pep Albumin Urine WBC (Auto) 09/14/21 09/15/21 09/15/21 22:56 12:12 18:05 Hct RDW Lymph % (Auto) [place] % (Auto) Lymph # (Auto) [place] # (Auto) Seg Neutrophils % Seg Neuts % (Manual) Lymphocytes % (Manual) Seg Neutrophils # Lymphocytes # (Manual) D-Dimer ABG pH ABG pO2 ABG HCO3 ABG O2 Saturation ABG Base Excess Sodium Potassium Chloride Carbon Dioxide BUN Creatinine Glucose POC Glucose 275 H 297 H 247 H Calcium ALT NT-Pro-B Natriuret Pep Albumin Urine WBC (Auto) 09/15/21 09/16/21 09/16/21 22:21 07:51 11:22 Hct RDW Lymph % (Auto) [place] % (Auto) Lymph # (Auto) [place] # (Auto) Seg Neutrophils % Seg Neuts % (Manual) Lymphocytes % (Manual) Seg Neutrophils # Lymphocytes # (Manual) D-Dimer ABG pH ABG pO2 ABG HCO3 ABG O2 Saturation ABG Base Excess Sodium Potassium Chloride Carbon Dioxide BUN Creatinine Glucose POC Glucose 309 H 196 H 278 H Calcium ALT NT-Pro-B Natriuret Pep Albumin Urine WBC (Auto)
[2021-09-16] MEDS: ALPRAZolam 1 MG TAB PO PRN ×2 (13:43→22:33)
[2021-09-16] MEDS: INSULIN GLARGINE 100 UNITS/ML SUB-Q SCH (22:21)
--- NOTE | 2021-09-16 23:40 | Progress Note ---
Assessment and Plan Assessment and plan: Uncontrolled blood sugars probably secondary to steroids, increase Lantus to 15 units subcu daily --Sepsis secondary to UTI/E. 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 Gomes PCR test is negative Severe hypoxic and hypercapnic respiratory failure, required BiPAP on admission Patient was on 10 L of nasal cannula oxygen/100% nonrebreather/BiPAP, currently on high flow O2 25 L X-ray chest show moderate gaseous distention of the stomach severe diffuse bilateral chronic parenchymal opacities that have not changed chest x-ray Patient was recently discharged on on home 3 L oxygen CTA chest; no CT evidence of PE, diffuse severe bilateral mixed interstitial and alveolar opacities CT head without contrast; there is 2 small 2 to 3 mm focus of calcification along the lateral left frontal lobe which appears to be incidental, Patient is receiving currently high-dose Solu-Medrol therapy, per pulmonary --Abdominal distention with ileus[present on admission] resolved Repeat abdomen x-ray 09/03 showed no gaseous distention, now tolerating diet --Type 2 diabetes mellitus Continue home insulin and coverage Follow hemoglobin A1c, SSI as needed --Generalized anxiety disorder Continue Xanax as necessary Psych consult --Hypokalemia: Closely monitor electrolytes and replenish as needed --DVT prophylaxis On Lovenox and GI prophylaxis --Brief history and daily hospital course: 50-year-old female patient was admitted with COVID-19 pneumonia severe hypoxic hypercapnic respiratory failure had a prolonged stay in the hospital for 3 to 4 months and was discharged on 08/28/2021 on home oxygen and long-term steroids and other supportive care, patient again was admitted on the stabilized and discharged on the . patient already has home oxygen and all the medications are needed. Patient readmitted 09/01/21 with acute hypoxic respiratory failure and altered level of consciousness, s/p BiPAP, chest x-ray gaseous distention of the stomach. Pulmonary following, patient also has generalized anxiety on Xanax. 09/01/2021; on intermittent BiPAP, chest x-ray gaseous distention of stomach recommend, NG tube placement intermittent suction and supportive care Disposition monitor closely wean will oxygen;, 2 -4 to 5 L nasal cannula, and discharge when stable. Patient already has home oxygen 09/02: Remains hypoxic and hypercapnic, somnolent post Ativan, on high flow O2 30 to 40 L, high-dose Solu-Medrol and NG tube for gastric distention. wean FiO2 as tolerated and BiPAP as needed for the hypercapnia, recheck ABG. Discussed with the pulmonary and nursing staff. 09/03: Off BiPAP this morning, continue to follow serum glucose, patient on high-dose steroid, continue high flow O2 and wean off as tolerated. Repeat abdominal x-ray showed non significant normal bowel gas pattern. Will initiate on clear liquid diet, will monitor off NG tube. 09/04;follow clinically, empiric steroid, wean off O2 as tolerated,on high flow O2.advance diet as tolerated. monitorblood glucose and adjust insulin prn 09/05: Follow clinically, consistent carb diet, high-dose empiric steroid, wean off O2 as tolerated. Transfer out of intermediate care to [facility] with telemetry. 09/06: Remains on high flow O2 25 L, supportive care, wean off O2 as tolerated, adjust serum blood glucose with insulin, tolerating consistent carb diet. 09/07/21: Continue to replete electrolytes and monitor. Wean off O2 as tolerated, guarded prognosis, continue empiric steroid. Follow clinically. 09/08/21;replete and monitor potassium, wean off O2 as tolerated. Patient remains on 25 L high flow O2. Continue empiric steroid, follow clinically. 09/09/21; spiking temp, will order pancultures, repeat chest x-ray, guarded prognosis, remains on 25 L high flow O2, follow clinically 09/10; patient is afebrile, remains on high flow 25 L nasal cannula oxygen, wean as tolerated, patient already has home oxygen Wean aggressively as tolerated, if no improvement consider hospice 09/11; patient's urine cultures positive for gram-negative rods, will add Levaquin 750 mg IV daily, follow culture sensitivities and adjust as needed Patient is anxious, has intermittent panic episodes, continue Xanax, consult psych 09/12; urine cultures positive for E. coli, sensitivities include Levaquin, remains on high flow nasal cannula oxygen, wean as tolerated Consults and recommendations noted and appreciated 09/13; sepsis due to UTI E. coli, remains on high flow nasal cannula oxygen, wean as tolerated, psych evaluation noted no new recommendations 09/14/21: On HFNC 20 L/35% FiO2/95 O2 sats, wean as tolerated, continue current management 09/15/21; remains an HFNC oxygen, chronically ill looking. Consider LTAC placement, social issues 09/16/2021; on 30 L HFNC O2, wean as tolerated 09/17/2021; remains on HFNC 30 L/35% FiO2/94 O2 sats, steroids reduced to 40 mg every 8 hours, follow pulmonary recommendations Unable to consider LTAC, as patient is undocumented and no resources, DANA catherine per case management when stable Disposition; wean oxygen as tolerated, follow pulmonary and case management recommendations Tried to discuss about hospice, however patient and family unable to comprehend and understand hospice services, History Interval history: Patient remains on high flow nasal cannula oxygen 30 L/35% FiO2/94% O2 sats I seen and examined the patient at the bedside, patient's chart medications tests and reports reviewed Patient looks critically ill, mild shortness of breath, continues to be on HFNC oxygen Unable to wean, vital signs noted Hospitalist Physical - Constitutional Vitals: Temp Pulse Resp BP Pulse Ox 97.9 F 111 H 28 H 123/75 94 09/16/21 21:57 09/16/21 21:57 09/16/21 21:57 09/16/21 21:57 09/16/21 23:20 General appearance: Present: mild distress, well-nourished, other (On high flow oxygen, more alert and awake) - EENT Eyes: Present: PERRL, EOM intact - Neck Neck: Present: supple, normal ROM - Respiratory Respiratory effort: other (Distress) Respiratory: bilateral: diminished, rhonchi, negative: rales, wheezing - Cardiovascular Rhythm: regular Heart Sounds: Present: S1 & S2 - Extremities Extremities: no ischemia, No edema - Abdominal General gastrointestinal: soft, non-tender, non-distended, normal bowel sounds - Integumentary Integumentary: Present: clear, warm - Psychiatric Psychiatric: appropriate mood/affect, cooperative - Neurologic Neurologic: moves all extremities Results - Labs CBC & Chem 7: 09/08/21 04:31 09/09/21 07:50 Labs: Laboratory Last Values WBC 8.2 K/mm3 (4.5-11.0) 09/08/21 04:31 RBC 4.99 M/mm3 (3.65-5.03) 09/08/21 04:31 Hgb 14.2 gm/dl (10.1-14.3) 09/08/21 04:31 Hct 44.9 % (30.3-42.9) H 09/08/21 04:31 MCV 90 fl (79-97) 09/08/21 04:31 MCH 28 pg (28-32) 09/08/21 04:31 MCHC 32 % (30-34) 09/08/21 04:31 RDW 17.2 % (13.2-15.2) H 09/08/21 04:31 Plt Count 178 K/mm3 (140-440) 09/08/21 04:31 Lymph % (Auto) 12.3 % (13.4-35.0) L 09/08/21 04:31 [place] % (Auto) 6.6 % (0.0-7.3) 09/08/21 04:31 Eos % (Auto) 0.3 % (0.0-4.3) 09/08/21 04:31 Baso % (Auto) 1.7 % (0.0-1.8) 09/08/21 04:31 Lymph # (Auto) 1.0 K/mm3 (1.2-5.4) L 09/08/21 04:31 [place] # (Auto) 0.5 K/mm3 (0.0-0.8) 09/08/21 04:31 Eos # (Auto) 0.0 K/mm3 (0.0-0.4) 09/08/21 04:31 Baso # (Auto) 0.1 K/mm3 (0.0-0.1) 09/08/21 04:31 Add Manual Diff Complete 09/03/21 06:05 Total Counted 100 09/03/21 06:05 Seg Neutrophils % 79.1 % (40.0-70.0) H 09/08/21 04:31 Seg Neuts % (Manual) 94.0 % (40.0-70.0) H 09/03/21 06:05 Lymphocytes % (Manual) 3.0 % (13.4-35.0) L 09/03/21 06:05 Monocytes % (Manual) 3.0 % (0.0-7.3) 09/03/21 06:05 Nucleated RBC % Not Reportable 09/03/21 06:05 Seg Neutrophils # 6.5 K/mm3 (1.8-7.7) 09/08/21 04:31 Seg Neutrophils # Man 7.3 K/mm3 (1.8-7.7) 09/03/21 06:05 Band Neutrophils # 0.0 K/mm3 09/03/21 06:05 Lymphocytes # (Manual) 0.2 K/mm3 (1.2-5.4) L 09/03/21 06:05 Abs React Lymphs (Man) 0.0 K/mm3 09/03/21 06:05 Monocytes # (Manual) 0.2 K/mm3 (0.0-0.8) 09/03/21 06:05 Eosinophils # (Manual) 0.0 K/mm3 (0.0-0.4) 09/03/21 06:05 Basophils # (Manual) 0.0 K/mm3 (0.0-0.1) 09/03/21 06:05 Metamyelocytes # 0.0 K/mm3 09/03/21 06:05 Myelocytes # 0.0 K/mm3 09/03/21 06:05 Promyelocytes # 0.0 K/mm3 09/03/21 06:05 Blast Cells # 0.0 K/mm3 09/03/21 06:05 WBC Morphology Not Reportable 09/03/21 06:05 Hypersegmented Neuts Not Reportable 09/03/21 06:05 Hyposegmented Neuts Not Reportable 09/03/21 06:05 Hypogranular Neuts Not Reportable 09/03/21 06:05 Smudge Cells Not Reportable 09/03/21 06:05 Toxic Granulation Not Reportable 09/03/21 06:05 Toxic Vacuolation Not Reportable 09/03/21 06:05 Dohle Bodies Not Reportable 09/03/21 06:05 Pelger-Huet Anomaly Not Reportable 09/03/21 06:05 Janelle Rods Not Reportable 09/03/21 06:05 Platelet Estimate Consistent w auto 09/03/21 06:05 Clumped Platelets Not Reportable 09/03/21 06:05 Plt Clumps, EDTA Not Reportable 09/03/21 06:05 Large Platelets Not Reportable 09/03/21 06:05 Giant Platelets Not Reportable 09/03/21 06:05 Platelet Satelliting Not Reportable 09/03/21 06:05 Plt Morphology Comment Not Reportable 09/03/21 06:05 RBC Morphology Normal 09/03/21 06:05 Dimorphic RBCs Not Reportable 09/03/21 06:05 Polychromasia Not Reportable 09/03/21 06:05 Hypochromasia Not Reportable 09/03/21 06:05 Poikilocytosis 1+ 09/03/21 06:05 Anisocytosis Not Reportable 09/03/21 06:05 Microcytosis Not Reportable 09/03/21 06:05 Macrocytosis Not Reportable 09/03/21 06:05 Spherocytes Not Reportable 09/03/21 06:05 Pappenheimer Bodies Not Reportable 09/03/21 06:05 Sickle Cells Not Reportable 09/03/21 06:05 Target Cells Not Reportable 09/03/21 06:05 Tear Drop Cells Not Reportable 09/03/21 06:05 Ovalocytes Not Reportable 09/03/21 06:05 Stomatocytes 3+ 09/03/21 06:05 Helmet Cells Not Reportable 09/03/21 06:05 [place] Bodies Not Reportable 09/03/21 06:05 [place] Rings Not Reportable 09/03/21 06:05 [place] Cells Not Reportable 09/03/21 06:05 Bite Cells Not Reportable 09/03/21 06:05 Crenated Cell Not Reportable 09/03/21 06:05 Elliptocytes Not Reportable 09/03/21 06:05 Acanthocytes (Spur) Not Reportable 09/03/21 06:05 Rouleaux Not Reportable 09/03/21 06:05 Hemoglobin C Crystals Not Reportable 09/03/21 06:05 Schistocytes Not Reportable 09/03/21 06:05 Malaria parasites Not Reportable 09/03/21 06:05 Justin Bodies Not Reportable 09/03/21 06:05 Hem Pathologist Commnt No 09/03/21 06:05 D-Dimer 710.59 ng/mlDDU (0-234) H 08/31/21 19:32 ABG pH 7.240 pH Units (7.350-7.450) L 09/01/21 23:56 ABG pCO2 111.3 mm Hg 09/01/21 23:56 ABG pO2 198.0 mm Hg (80.0-90.0) H 09/01/21 23:56 ABG HCO3 46.6 mmol/L (20.0-26.0) H 09/01/21 23:56 ABG O2 Saturation 99.0 % (95.0-99.0) 09/01/21 23:56 ABG O2 Content 16.8 (0.0-44) 09/01/21 23:56 ABG Base Excess 14.8 mmol/L (-2.0-3.0) H 09/01/21 23:56 ABG Hemoglobin 12.0 gm/dl (12.0-16.0) 09/01/21 23:56 ABG Carboxyhemoglobin 1.6 % (0.0-5.0) 09/01/21 23:56 ABG Methemoglobin 0.6 % (0.0-1.5) 09/01/21 23:56 Oxyhemoglobin 96.8 % (95.0-99.0) 09/01/21 23:56 FiO2 60 % 09/01/21 23:56 Sodium 138 mmol/L (137-145) 09/09/21 07:50 Potassium 4.7 mmol/L (3.6-5.0) D 09/09/21 07:50 Chloride 88.8 mmol/L (98-107) L 09/09/21 07:50 Carbon Dioxide 39 mmol/L (22-30) H 09/09/21 07:50 Anion Gap 15 mmol/L 09/09/21 07:50 BUN 14 mg/dL (7-17) 09/09/21 07:50 Creatinine < 0.2 mg/dL (0.6-1.2) L 09/09/21 07:50 Estimated GFR > 60 ml/min 09/09/21 07:50 BUN/Creatinine Ratio 70 % 09/09/21 07:50 Glucose 197 mg/dL (65-100) H 09/09/21 07:50 POC Glucose 246 mg/dL (70-105) H 09/16/21 21:56 Calcium 8.8 mg/dL (8.4-10.2) 09/09/21 07:50 Magnesium 2.10 mg/dL (1.7-2.3) 09/08/21 04:31 Total Bilirubin 0.30 mg/dL (0.1-1.2) 09/03/21 06:05 AST 29 units/L (5-40) 09/03/21 06:05 ALT 71 units/L (7-56) H 09/03/21 06:05 Alkaline Phosphatase 82 units/L (35-129) 09/03/21 06:05 NT-Pro-B Natriuret Pep 524.1 pg/mL (0-450) H 08/31/21 19:32 Total Protein 7.0 g/dL (6.3-8.2) 09/03/21 06:05 Albumin 3.8 g/dL (3.9-5) L 09/03/21 06:05 Albumin/Globulin Ratio 1.2 % 09/03/21 06:05 HCG, Qual Negative (Negative) 08/31/21 19:32 Urine Color Yellow (Yellow) 09/10/21 07:00 Urine Turbidity Cloudy (Clear) 09/10/21 07:00 Urine pH 7.0 (5.0-7.0) 09/10/21 07:00 Ur Specific [place] 1.022 (1.003-1.030) 09/10/21 07:00 Urine Protein <15 mg/dl mg/dL (Negative) 09/10/21 07:00 Urine Glucose (UA) >=500 mg/dL (Negative) 09/10/21 07:00 Urine Ketones Neg mg/dL (Negative) 09/10/21 07:00 Urine Blood Sm (Negative) 09/10/21 07:00 Urine Nitrite Neg (Negative) 09/10/21 07:00 Urine Bilirubin Neg (Negative) 09/10/21 07:00 Urine Urobilinogen < 2.0 mg/dL (<2.0) 09/10/21 07:00 Ur Leukocyte Esterase Mod (Negative) 09/10/21 07:00 Urine WBC (Auto) 24.0 /HPF (0.0-6.0) H 09/10/21 07:00 Urine RBC (Auto) 17.0 /HPF (0.0-6.0) 09/10/21 07:00 U Epithel Cells (Auto) 3.0 /HPF (0-13.0) 09/10/21 07:00 Urine Bacteria (Auto) 2+ /HPF (Negative) 09/10/21 07:00 Calcium Oxalate Crystal Few 09/10/21 07:00 Urine Mucus 1+ /HPF 09/10/21 07:00 Ur Yeast w [place] Few /HPF 09/10/21 07:00 Urine Yeast (Budding) Few /HPF 09/10/21 07:00 Amos/IV: Voiding Method Incontinent Active Medications - Current Medications Current Medications: Generic Name Dose Route Start Last Admin Trade Name Freq PRN Reason Stop Dose Admin Acetaminophen 650 mg 09/01/21 01:25 09/16/21 22:33 Acetaminophen 325 Mg Tab PO 650 mg Q4H PRN Administration Pain MILD(1-3)/Fever >100.5/[place] Albuterol 2.5 mg 09/01/21 01:25 09/14/21 14:56 Albuterol 2.5 Mg/3 Ml Nebu IH 2.5 mg Q3HRT PRN Administration Shortness Of Breath Alprazolam 1 mg 09/01/21 01:38 09/16/21 22:33 Alprazolam 1 Mg Tab PO 1 mg BID PRN Administration Agitation Dextrose 50 ml 09/01/21 01:25 Dextrose 50% In Water (25gm) 50 Ml Syringe IV Q30MIN PRN Hypoglycemia Protocol Famotidine 20 mg 09/01/21 10:00 09/16/21 22:25 Famotidine 20 Mg Tab PO 20 mg BID TUTU Administration Heparin Sodium (Porcine) 5,000 unit 09/01/21 06:00 09/16/21 22:23 Heparin 5,000 Unit/1 Ml Vial SUB-Q 5,000 unit Q8HR TUTU Administration Insulin Glargine 15 units 09/15/21 18:37 09/16/21 22:21 Insulin Glargine 100 Units/Ml SUB-Q 15 units QHS TUTU Administration Insulin Human Lispro 0 unit 09/01/21 07:30 09/16/21 22:22 Insulin Lispro 100 Unit/Ml SUB-Q 3 unit ACHS TUTU Administration Protocol Methylprednisolone Sodium Succinate 40 mg 09/12/21 22:00 09/16/21 22:27 Methylprednisolone Sod Succinate 40 Mg/1 Ml Inj IV 40 mg Q8HR TUTU Administration Ondansetron HCl 4 mg 09/01/21 01:25 09/05/21 15:12 Ondansetron 4 Mg/2 Ml Inj IV 4 mg Q8H PRN Administration Nausea And Vomiting Sodium Chloride 10 ml 09/01/21 10:00 09/16/21 09:54 Sodium Chloride 0.9% 10 Ml Flush Syringe IV 10 ml BID TUTU Administration Sodium Chloride 10 ml 09/01/21 01:25 09/01/21 14:16 Sodium Chloride 0.9% 10 Ml Flush Syringe IV 10 ml PRN PRN Administration LINE FLUSH Nutrition/Malnutrition Assess - Dietary Evaluation Nutrition/Malnutrition Findings: Nutrition Notes Start: 09/01/21 12:25 Freq: Status: Active Protocol: Document 09/16/21 15:34 SAQIB (Rec: 09/16/21 15:38 SAQIB [id number]) Nutrition Notes Initial or Follow up Brief Note Current Diet Consistent Carbohydrates Diet (since B 09/06). Height 5 ft 2 in Weight 54 kg [place] Body Weight (kg) 50.00 BMI 21.7 Weight change and time frame No body weight change reported . Weight Status Appropriate Subjective/Other Information RD consult on routine F/U on dietary tolerance. Pt's %PO intake of meals is Good (75-100%), according to ADL notes. Percent of energy/protein needs met: Prescribed Consistent Carbohydrates Diet provides for energy/protein needs (2, 061 Kcal/91 g) during LOS. Current % PO Good (75-100%) Nutrition Intervention Change Diet Order: Continue Consistent Carbohydrates Diet. Revisit per MD consult or patient Sign Off request: Additional Comments Continue monitoring food tolerance, %PO intake of meals and BM.
[2021-09-17] MEDS: methylPREDNISolone Sod Succinate 40 MG/1 ML INJ IV SCH ×3 (05:26→23:17)
[2021-09-17] MEDS: HEPARIN 5,000 UNIT/1 ML VIAL SUB-Q SCH ×3 (05:27→23:16)
[2021-09-17] MEDS: INSULIN LISPRO 100 UNIT/ML SUB-Q SCH ×4 (11:23→23:20)
[2021-09-17] MEDS: FAMOTIDINE 20 MG TAB PO SCH ×2 (11:24→23:19)
[2021-09-17] MEDS: INSULIN GLARGINE 100 UNITS/ML SUB-Q SCH (23:17)
[2021-09-17] MEDS: ACETAMINOPHEN 325 MG TAB PO PRN (23:18)
[2021-09-17] MEDS: ALPRAZolam 1 MG TAB PO PRN (23:18)
[2021-09-18] MEDS: HEPARIN 5,000 UNIT/1 ML VIAL SUB-Q SCH ×3 (06:48→21:52)
[2021-09-18] MEDS: methylPREDNISolone Sod Succinate 40 MG/1 ML INJ IV SCH ×3 (06:50→21:52)
[2021-09-18] MEDS: FAMOTIDINE 20 MG TAB PO SCH ×2 (10:32→21:52)
[2021-09-18] MEDS: ACETAMINOPHEN 325 MG TAB PO PRN ×3 (10:32→21:56)
[2021-09-18] MEDS: INSULIN LISPRO 100 UNIT/ML SUB-Q SCH ×3 (10:33→18:00)
--- NOTE | 2021-09-18 14:50 | Progress Note ---
Assessment and Plan 50 y/o female with chronic respiratory failure secondary to COVID with scarring residual from COVID 09/18/21: Lasix made no improvement. So will not repeat. Will drop steroids to 20q8 starting now. 09/16/21: Lasix 20mg IV x1 today. Prone as tolerated. Wean Flow and FiO2 for sats >88% 09/12/21: No new recs. Will drop steroids to 40q8 09/10/21: Please be more aggressive with oxygen weaning. Will consider weaning steroids again or Thursday. 09/08/21: Continue steroids at current dosing. Wean Fio2 for sats >88%. 09/06/21: Will drop steroids to 60 q8 starting now. 09/04/21: Will start to taper steroids today. Continue to wean FiO2 as tolerated. Anxiety control. High dose steroids Anxiety therapy Wean FiO2 as tolerated ABG not indicated currently as she is sleepy from IV ativan administered because she is NPO and could not get her xanax Subjective Date of service: 09/18/21 Interval history: Still on 30 and 35%. Objective Vital Signs - 12hr 09/18/21 09/18/21 10:00 11:52 Temperature 97.9 F Pulse Rate 114 H Respiratory 24 Rate Blood Pressure 136/78 O2 Sat by Pulse 95 96 Oximetry CBC and BMP: 09/08/21 04:31 09/09/21 07:50 ABG, PT/INR, D-dimer: ABG ABG pH 7.240 pH Units (7.350-7.450) L 09/01/21 23:56 ABG pCO2 111.3 mm Hg 09/01/21 23:56 ABG pO2 198.0 mm Hg (80.0-90.0) H 09/01/21 23:56 ABG O2 Saturation 99.0 % (95.0-99.0) 09/01/21 23:56 PT/INR, D-dimer D-Dimer 710.59 ng/mlDDU (0-234) H 08/31/21 19:32 Abnormal lab findings: Abnormal Labs 08/31/21 08/31/21 08/31/21 19:32 19:32 19:32 Hct RDW 16.4 H Lymph % (Auto) [place] % (Auto) 9.0 H Lymph # (Auto) [place] # (Auto) 1.0 H Seg Neutrophils % 76.2 H Seg Neuts % (Manual) Lymphocytes % (Manual) Seg Neutrophils # 8.3 H Lymphocytes # (Manual) D-Dimer 710.59 H ABG pH ABG pO2 ABG HCO3 ABG O2 Saturation ABG Base Excess Sodium Potassium Chloride 92.7 L Carbon Dioxide 36 H BUN Creatinine 0.4 L D Glucose 249 H POC Glucose Calcium ALT NT-Pro-B Natriuret Pep Albumin Urine WBC (Auto) 08/31/21 08/31/21 09/01/21 19:32 21:05 09:24 Hct RDW Lymph % (Auto) [place] % (Auto) Lymph # (Auto) [place] # (Auto) Seg Neutrophils % Seg Neuts % (Manual) Lymphocytes % (Manual) Seg Neutrophils # Lymphocytes # (Manual) D-Dimer ABG pH 7.244 L ABG pO2 307.7 H ABG HCO3 47.9 H ABG O2 Saturation 99.4 H ABG Base Excess 16.0 H Sodium Potassium Chloride Carbon Dioxide BUN Creatinine Glucose POC Glucose 106 H Calcium ALT NT-Pro-B Natriuret Pep 524.1 H Albumin Urine WBC (Auto) 09/01/21 09/01/21 09/01/21 13:39 16:22 23:56 Hct RDW Lymph % (Auto) [place] % (Auto) Lymph # (Auto) [place] # (Auto) Seg Neutrophils % Seg Neuts % (Manual) Lymphocytes % (Manual) Seg Neutrophils # Lymphocytes # (Manual) D-Dimer ABG pH 7.240 L ABG pO2 198.0 H ABG HCO3 46.6 H ABG O2 Saturation ABG Base Excess 14.8 H Sodium Potassium Chloride Carbon Dioxide BUN Creatinine Glucose POC Glucose 154 H 188 H Calcium ALT NT-Pro-B Natriuret Pep Albumin Urine WBC (Auto) 09/02/21 09/02/21 09/02/21 01:49 07:22 07:22 Hct RDW 16.4 H Lymph % (Auto) [place] % (Auto) Lymph # (Auto) [place] # (Auto) Seg Neutrophils % Seg Neuts % (Manual) 97.0 H Lymphocytes % (Manual) 2.0 L Seg Neutrophils # Lymphocytes # (Manual) 0.1 L D-Dimer ABG pH ABG pO2 ABG HCO3 ABG O2 Saturation ABG Base Excess Sodium Potassium Chloride 82.7 L Carbon Dioxide 41 H* BUN 21 H Creatinine 0.3 L Glucose 198 H POC Glucose 132 H Calcium ALT NT-Pro-B Natriuret Pep Albumin Urine WBC (Auto) 09/02/21 09/02/21 09/02/21 08:29 11:27 16:59 Hct RDW Lymph % (Auto) [place] % (Auto) Lymph # (Auto) [place] # (Auto) Seg Neutrophils % Seg Neuts % (Manual) Lymphocytes % (Manual) Seg Neutrophils # Lymphocytes # (Manual) D-Dimer ABG pH ABG pO2 ABG HCO3 ABG O2 Saturation ABG Base Excess Sodium Potassium Chloride Carbon Dioxide BUN Creatinine Glucose POC Glucose 201 H 232 H 118 H Calcium ALT NT-Pro-B Natriuret Pep Albumin Urine WBC (Auto) 09/02/21 09/03/21 09/03/21 22:08 06:05 06:05 Hct RDW 16.5 H Lymph % (Auto) [place] % (Auto) Lymph # (Auto) [place] # (Auto) Seg Neutrophils % Seg Neuts % (Manual) 94.0 H Lymphocytes % (Manual) 3.0 L Seg Neutrophils # Lymphocytes # (Manual) 0.2 L D-Dimer ABG pH ABG pO2 ABG HCO3 ABG O2 Saturation ABG Base Excess Sodium Potassium Chloride 79.3 L Carbon Dioxide 52 H* D BUN 27 H Creatinine 0.2 L Glucose 228 H POC Glucose 241 H Calcium 10.4 H ALT 71 H NT-Pro-B Natriuret Pep Albumin 3.8 L Urine WBC (Auto) 09/03/21 09/03/21 09/03/21 07:53 11:37 15:52 Hct RDW Lymph % (Auto) [place] % (Auto) Lymph # (Auto) [place] # (Auto) Seg Neutrophils % Seg Neuts % (Manual) Lymphocytes % (Manual) Seg Neutrophils # Lymphocytes # (Manual) D-Dimer ABG pH ABG pO2 ABG HCO3 ABG O2 Saturation ABG Base Excess Sodium Potassium Chloride Carbon Dioxide BUN Creatinine Glucose POC Glucose 241 H 202 H 284 H Calcium ALT NT-Pro-B Natriuret Pep Albumin Urine WBC (Auto) 09/03/21 09/04/21 09/04/21 22:07 08:33 11:16 Hct RDW Lymph % (Auto) [place] % (Auto) Lymph # (Auto) [place] # (Auto) Seg Neutrophils % Seg Neuts % (Manual) Lymphocytes % (Manual) Seg Neutrophils # Lymphocytes # (Manual) D-Dimer ABG pH ABG pO2 ABG HCO3 ABG O2 Saturation ABG Base Excess Sodium Potassium Chloride Carbon Dioxide BUN Creatinine Glucose POC Glucose 311 H 232 H 356 H Calcium ALT NT-Pro-B Natriuret Pep Albumin Urine WBC (Auto) 09/04/21 09/04/21 09/05/21 17:10 23:05 08:08 Hct RDW Lymph % (Auto) [place] % (Auto) Lymph # (Auto) [place] # (Auto) Seg Neutrophils % Seg Neuts % (Manual) Lymphocytes % (Manual) Seg Neutrophils # Lymphocytes # (Manual) D-Dimer ABG pH ABG pO2 ABG HCO3 ABG O2 Saturation ABG Base Excess Sodium Potassium Chloride Carbon Dioxide BUN Creatinine Glucose POC Glucose 328 H 150 H 342 H Calcium ALT NT-Pro-B Natriuret Pep Albumin Urine WBC (Auto) 09/05/21 09/05/21 09/05/21 11:04 13:23 13:23 Hct RDW 17.1 H Lymph % (Auto) [place] % (Auto) Lymph # (Auto) [place] # (Auto) Seg Neutrophils % Seg Neuts % (Manual) Lymphocytes % (Manual) Seg Neutrophils # Lymphocytes # (Manual) D-Dimer ABG pH ABG pO2 ABG HCO3 ABG O2 Saturation ABG Base Excess Sodium Potassium 2.6 L* D Chloride 74.4 L Carbon Dioxide 46 H* BUN Creatinine 0.3 L Glucose 389 H POC Glucose 395 H Calcium ALT NT-Pro-B Natriuret Pep Albumin Urine WBC (Auto) 09/05/21 09/05/21 09/06/21 16:22 21:09 08:02 Hct RDW Lymph % (Auto) [place] % (Auto) Lymph # (Auto) [place] # (Auto) Seg Neutrophils % Seg Neuts % (Manual) Lymphocytes % (Manual) Seg Neutrophils # Lymphocytes # (Manual) D-Dimer ABG pH ABG pO2 ABG HCO3 ABG O2 Saturation ABG Base Excess Sodium Potassium Chloride Carbon Dioxide BUN Creatinine Glucose POC Glucose 195 H 243 H 119 H Calcium ALT NT-Pro-B Natriuret Pep Albumin Urine WBC (Auto) 09/06/21 09/06/21 09/06/21 11:00 11:19 16:06 Hct RDW Lymph % (Auto) [place] % (Auto) Lymph # (Auto) [place] # (Auto) Seg Neutrophils % Seg Neuts % (Manual) Lymphocytes % (Manual) Seg Neutrophils # Lymphocytes # (Manual) D-Dimer ABG pH ABG pO2 ABG HCO3 ABG O2 Saturation ABG Base Excess Sodium 136 L Potassium Chloride 78.3 L Carbon Dioxide 47 H* BUN Creatinine 0.3 L Glucose 354 H POC Glucose 309 H 381 H Calcium ALT NT-Pro-B Natriuret Pep Albumin Urine WBC (Auto) 09/06/21 09/07/21 09/07/21 22:25 11:11 16:50 Hct RDW Lymph % (Auto) [place] % (Auto) Lymph # (Auto) [place] # (Auto) Seg Neutrophils % Seg Neuts % (Manual) Lymphocytes % (Manual) Seg Neutrophils # Lymphocytes # (Manual) D-Dimer ABG pH ABG pO2 ABG HCO3 ABG O2 Saturation ABG Base Excess Sodium Potassium Chloride Carbon Dioxide BUN Creatinine Glucose POC Glucose 217 H 442 H 222 H Calcium ALT NT-Pro-B Natriuret Pep Albumin Urine WBC (Auto) 09/07/21 09/08/21 09/08/21 21:52 04:31 04:31 Hct 44.9 H RDW 17.2 H Lymph % (Auto) 12.3 L [place] % (Auto) Lymph # (Auto) 1.0 L [place] # (Auto) Seg Neutrophils % 79.1 H Seg Neuts % (Manual) Lymphocytes % (Manual) Seg Neutrophils # Lymphocytes # (Manual) D-Dimer ABG pH ABG pO2 ABG HCO3 ABG O2 Saturation ABG Base Excess Sodium Potassium 2.8 L* D Chloride 87.6 L Carbon Dioxide 45 H* BUN Creatinine 0.2 L Glucose 46 L POC Glucose 360 H Calcium ALT NT-Pro-B Natriuret Pep Albumin Urine WBC (Auto) 09/08/21 09/08/21 09/08/21 05:25 05:53 11:50 Hct RDW Lymph % (Auto) [place] % (Auto) Lymph # (Auto) [place] # (Auto) Seg Neutrophils % Seg Neuts % (Manual) Lymphocytes % (Manual) Seg Neutrophils # Lymphocytes # (Manual) D-Dimer ABG pH ABG pO2 ABG HCO3 ABG O2 Saturation ABG Base Excess Sodium Potassium Chloride Carbon Dioxide BUN Creatinine Glucose POC Glucose 39 L 64 L 280 H Calcium ALT NT-Pro-B Natriuret Pep Albumin Urine WBC (Auto) 09/08/21 09/08/21 09/09/21 16:20 21:32 07:20 Hct RDW Lymph % (Auto) [place] % (Auto) Lymph # (Auto) [place] # (Auto) Seg Neutrophils % Seg Neuts % (Manual) Lymphocytes % (Manual) Seg Neutrophils # Lymphocytes # (Manual) D-Dimer ABG pH ABG pO2 ABG HCO3 ABG O2 Saturation ABG Base Excess Sodium Potassium Chloride Carbon Dioxide BUN Creatinine Glucose POC Glucose 256 H 203 H 194 H Calcium ALT NT-Pro-B Natriuret Pep Albumin Urine WBC (Auto) 09/09/21 09/09/21 09/09/21 07:50 11:13 16:20 Hct RDW Lymph % (Auto) [place] % (Auto) Lymph # (Auto) [place] # (Auto) Seg Neutrophils % Seg Neuts % (Manual) Lymphocytes % (Manual) Seg Neutrophils # Lymphocytes # (Manual) D-Dimer ABG pH ABG pO2 ABG HCO3 ABG O2 Saturation ABG Base Excess Sodium Potassium Chloride 88.8 L Carbon Dioxide 39 H BUN Creatinine < 0.2 L Glucose 197 H POC Glucose 258 H 231 H Calcium ALT NT-Pro-B Natriuret Pep Albumin Urine WBC (Auto) 09/09/21 09/10/21 09/10/21 22:17 07:00 08:02 Hct RDW Lymph % (Auto) [place] % (Auto) Lymph # (Auto) [place] # (Auto) Seg Neutrophils % Seg Neuts % (Manual) Lymphocytes % (Manual) Seg Neutrophils # Lymphocytes # (Manual) D-Dimer ABG pH ABG pO2 ABG HCO3 ABG O2 Saturation ABG Base Excess Sodium Potassium Chloride Carbon Dioxide BUN Creatinine Glucose POC Glucose 222 H 213 H Calcium ALT NT-Pro-B Natriuret Pep Albumin Urine WBC (Auto) 24.0 H 09/10/21 09/10/21 09/10/21 11:22 15:49 22:08 Hct RDW Lymph % (Auto) [place] % (Auto) Lymph # (Auto) [place] # (Auto) Seg Neutrophils % Seg Neuts % (Manual) Lymphocytes % (Manual) Seg Neutrophils # Lymphocytes # (Manual) D-Dimer ABG pH ABG pO2 ABG HCO3 ABG O2 Saturation ABG Base Excess Sodium Potassium Chloride Carbon Dioxide BUN Creatinine Glucose POC Glucose 241 H 201 H 212 H Calcium ALT NT-Pro-B Natriuret Pep Albumin Urine WBC (Auto) 12/09/11/21 09/11/21 08:01 11:21 16:41 Hct RDW Lymph % (Auto) [place] % (Auto) Lymph # (Auto) [place] # (Auto) Seg Neutrophils % Seg Neuts % (Manual) Lymphocytes % (Manual) Seg Neutrophils # Lymphocytes # (Manual) D-Dimer ABG pH ABG pO2 ABG HCO3 ABG O2 Saturation ABG Base Excess Sodium Potassium Chloride Carbon Dioxide BUN Creatinine Glucose POC Glucose 207 H 265 H 234 H Calcium ALT NT-Pro-B Natriuret Pep Albumin Urine WBC (Auto) 09/11/21 09/12/21 09/12/21 22:09 08:38 11:28 Hct RDW Lymph % (Auto) [place] % (Auto) Lymph # (Auto) [place] # (Auto) Seg Neutrophils % Seg Neuts % (Manual) Lymphocytes % (Manual) Seg Neutrophils # Lymphocytes # (Manual) D-Dimer ABG pH ABG pO2 ABG HCO3 ABG O2 Saturation ABG Base Excess Sodium Potassium Chloride Carbon Dioxide BUN Creatinine Glucose POC Glucose 293 H 222 H 326 H Calcium ALT NT-Pro-B Natriuret Pep Albumin Urine WBC (Auto) 09/12/21 09/12/21 09/13/21 16:25 21:45 07:41 Hct RDW Lymph % (Auto) [place] % (Auto) Lymph # (Auto) [place] # (Auto) Seg Neutrophils % Seg Neuts % (Manual) Lymphocytes % (Manual) Seg Neutrophils # Lymphocytes # (Manual) D-Dimer ABG pH ABG pO2 ABG HCO3 ABG O2 Saturation ABG Base Excess Sodium Potassium Chloride Carbon Dioxide BUN Creatinine Glucose POC Glucose 130 H 191 H 165 H Calcium ALT NT-Pro-B Natriuret Pep Albumin Urine WBC (Auto) 09/13/21 09/13/21 09/13/21 11:12 16:59 22:01 Hct RDW Lymph % (Auto) [place] % (Auto) Lymph # (Auto) [place] # (Auto) Seg Neutrophils % Seg Neuts % (Manual) Lymphocytes % (Manual) Seg Neutrophils # Lymphocytes # (Manual) D-Dimer ABG pH ABG pO2 ABG HCO3 ABG O2 Saturation ABG Base Excess Sodium Potassium Chloride Carbon Dioxide BUN Creatinine Glucose POC Glucose 263 H 162 H 276 H Calcium ALT NT-Pro-B Natriuret Pep Albumin Urine WBC (Auto) 09/14/21 09/14/21 09/14/21 08:12 12:28 16:30 Hct RDW Lymph % (Auto) [place] % (Auto) Lymph # (Auto) [place] # (Auto) Seg Neutrophils % Seg Neuts % (Manual) Lymphocytes % (Manual) Seg Neutrophils # Lymphocytes # (Manual) D-Dimer ABG pH ABG pO2 ABG HCO3 ABG O2 Saturation ABG Base Excess Sodium Potassium Chloride Carbon Dioxide BUN Creatinine Glucose POC Glucose 179 H 212 H 227 H Calcium ALT NT-Pro-B Natriuret Pep Albumin Urine WBC (Auto) 09/14/21 09/15/21 09/15/21 22:56 12:12 18:05 Hct RDW Lymph % (Auto) [place] % (Auto) Lymph # (Auto) [place] # (Auto) Seg Neutrophils % Seg Neuts % (Manual) Lymphocytes % (Manual) Seg Neutrophils # Lymphocytes # (Manual) D-Dimer ABG pH ABG pO2 ABG HCO3 ABG O2 Saturation ABG Base Excess Sodium Potassium Chloride Carbon Dioxide BUN Creatinine Glucose POC Glucose 275 H 297 H 247 H Calcium ALT NT-Pro-B Natriuret Pep Albumin Urine WBC (Auto) 09/15/21 09/16/21 09/16/21 22:21 07:51 11:22 Hct RDW Lymph % (Auto) [place] % (Auto) Lymph # (Auto) [place] # (Auto) Seg Neutrophils % Seg Neuts % (Manual) Lymphocytes % (Manual) Seg Neutrophils # Lymphocytes # (Manual) D-Dimer ABG pH ABG pO2 ABG HCO3 ABG O2 Saturation ABG Base Excess Sodium Potassium Chloride Carbon Dioxide BUN Creatinine Glucose POC Glucose 309 H 196 H 278 H Calcium ALT NT-Pro-B Natriuret Pep Albumin Urine WBC (Auto) 09/16/21 09/16/21 09/17/21 16:10 21:56 07:45 Hct RDW Lymph % (Auto) [place] % (Auto) Lymph # (Auto) [place] # (Auto) Seg Neutrophils % Seg Neuts % (Manual) Lymphocytes % (Manual) Seg Neutrophils # Lymphocytes # (Manual) D-Dimer ABG pH ABG pO2 ABG HCO3 ABG O2 Saturation ABG Base Excess Sodium Potassium Chloride Carbon Dioxide BUN Creatinine Glucose POC Glucose 264 H 246 H 174 H Calcium ALT NT-Pro-B Natriuret Pep Albumin Urine WBC (Auto) 09/17/21 09/17/21 09/17/21 11:25 15:43 21:19 Hct RDW Lymph % (Auto) [place] % (Auto) Lymph # (Auto) [place] # (Auto) Seg Neutrophils % Seg Neuts % (Manual) Lymphocytes % (Manual) Seg Neutrophils # Lymphocytes # (Manual) D-Dimer ABG pH ABG pO2 ABG HCO3 ABG O2 Saturation ABG Base Excess Sodium Potassium Chloride Carbon Dioxide BUN Creatinine Glucose POC Glucose 275 H 242 H 255 H Calcium ALT NT-Pro-B Natriuret Pep Albumin Urine WBC (Auto) 09/18/21 09/18/21 08:00 11:50 Hct RDW Lymph % (Auto) [place] % (Auto) Lymph # (Auto) [place] # (Auto) Seg Neutrophils % Seg Neuts % (Manual) Lymphocytes % (Manual) Seg Neutrophils # Lymphocytes # (Manual) D-Dimer ABG pH ABG pO2 ABG HCO3 ABG O2 Saturation ABG Base Excess Sodium Potassium Chloride Carbon Dioxide BUN Creatinine Glucose POC Glucose 170 H 244 H Calcium ALT NT-Pro-B Natriuret Pep Albumin Urine WBC (Auto)
--- NOTE | 2021-09-18 17:47 | Progress Note ---
Assessment and Plan 50-year-old female patient was admitted with COVID-19 pneumonia severe hypoxic hypercapnic respiratory failure had a prolonged stay in the hospital for 3 to 4 months and was discharged on 08/28/2021 on home oxygen and long-term st eroids and other supportive care, patient again was admitted on the stabilized and discharged on the . patient already has home oxygen and all the medications are needed. Patient readmitted 09/01/21 with acute hypoxic respiratory failure and altered level of consciousness, s/p BiPAP, chest x-ray gaseous distention of the stomach. Pulmonary following, patient also has generalized anxiety on Xanax. 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 Gomes PCR test is negative Severe hypoxic and hypercapnic respiratory failure, required BiPAP on admission Patient was on 10 L of nasal cannula oxygen/100% nonrebreather/BiPAP, currently on high flow O2 X-ray chest show moderate gaseous distention of the stomach severe diffuse bilateral chronic parenchymal opacities that have not changed chest x-ray Patient was recently discharged on on home 3 L oxygen CTA chest; no CT evidence of PE, diffuse severe bilateral mixed interstitial and alveolar opacities CT head without contrast; there is 2 small 2 to 3 mm focus of calcification along the lateral left frontal lobe which appears to be incidental, Patient is receiving currently high-dose Solu-Medrol therapy, per pulmonary --Abdominal distention with ileus Pulmonary recommended NG tube placement with intermittent suction for gastric distention Repeat abdomen x-ray 09/03 showed no gaseous distention, now tolerating diet -- IDDM (insulin dependent diabetes mellitus) Continue home insulin and coverage Follow hemoglobin A1c, SSI as needed --[place] (generalized anxiety disorder) Continue Xanax as necessary --Hypokalemia, continue to replete and monitor BMP --Uncontrolled blood sugars probably secondary to steroids, increase Lantus to 15 units subcu daily --Sepsis secondary to UTI/E. coli Completed treatment with Levaquin --DVT prophylaxis On Lovenox and GI prophylaxis Daily clinical course: 09/01/2021; on intermittent BiPAP, chest x-ray gaseous distention of stomach recommend, NG tube placement intermittent suction and supportive care Disposition monitor closely wean will oxygen;, 2 -4 to 5 L nasal cannula, and discharge when stable. Patient already has home oxygen 09/02: Remains hypoxic and hypercapnic, somnolent post Ativan, on high flow O2 30 to 40 L, high-dose Solu-Medrol and NG tube for gastric distention. wean FiO2 as tolerated and BiPAP as needed for the hypercapnia, recheck ABG. Discussed with the pulmonary and nursing staff. 09/03: Off BiPAP this morning, continue to follow serum glucose, patient on high-dose steroid, continue high flow O2 and wean off as tolerated. Repeat abdominal x-ray showed non significant normal bowel gas pattern. Will initiate on clear liquid diet, will monitor off NG tube. 09/04; continue to follow clinically, empiric steroid, wean off O2 as tolerated, patient remains on high flow O2. Will advance diet as tolerated. Continue to monitor serum blood glucose and adjust insulin doses accordingly. 09/05: Follow clinically, consistent carb diet, high-dose empiric steroid, wean off O2 as tolerated. Transfer out of intermediate care to [facility] with telemetry. 09/06: Remains on high flow O2 25 L, continue to provide supportive care, wean off O2 as tolerated, adjust serum blood glucose with insulin, tolerating consistent carb diet. 09/07/21: Continue to replete electrolytes and monitor. Wean off O2 as tolerated, guarded prognosis, continue empiric steroid. Follow clinically. 09/08/21; continue to replete and monitor potassium, wean off O2 as tolerated. Patient remains on 25 L high flow O2. Continue empiric steroid, follow clinically. 09/09/21; spiking temp, will order pancultures, repeat chest x-ray, guarded prognosis, remains on 25 L high flow O2, follow clinically 09/10; patient is afebrile, remains on high flow 25 L nasal cannula oxygen, wean as tolerated, patient already has home oxygen Wean aggressively as tolerated, if no improvement consider hospice 09/11; patient's urine cultures positive for gram-negative rods, will add Levaquin 750 mg IV daily, follow culture sensitivities and adjust as needed Patient is anxious, has intermittent panic episodes, continue Xanax, consult psych 09/12; urine cultures positive for E. coli, sensitivities include Levaquin, remains on high flow nasal cannula oxygen, wean as tolerated Consults and recommendations noted and appreciated 09/13; sepsis due to UTI E. coli, remains on high flow nasal cannula oxygen, wean as tolerated, psych evaluation noted no new recommendations 09/14/21: On HFNC 20 L/35% FiO2/95 O2 sats, wean as tolerated, continue current management 09/15/21; remains an HFNC oxygen, chronically ill looking. Consider LTAC placement, social issues 09/16/2021; on 30 L HFNC O2, wean as tolerated 09/17/2021; remains on HFNC 30 L/35% FiO2/94 O2 sats, steroids reduced to 40 mg every 8 hours, follow pulmonary recommendations Unable to consider LTAC, as patient is undocumented and no resources, DC planning per case management when stable 09/18/20; remains on 30 L high flow O2, rifle case repairer working on LTAC versus hospice placement. Continue to provide supportive care Subjective Date of service: 09/18/21 Interval history: Patient seen and examined. Medical records and medication list reviewed. No acute event overnight noted by the RN. Patient complains of difficulty breathing even on minimal exertion. Patient on high flow O2, tolerating diet, spiking temp Discussed plan of care at bedside with patient's RN and CM . Objective - Exam Narrative Exam: GENERAL: well-developed and well-nourished female lying on bed appeared to be in moderate discomfort. HEENT: Normocephalic. Atraumatic. No conjunctival congestion or icterus. Patient has moist mucous membranes. NECK: Supple. Trachea midline. CHEST/LUNGS: Diminished breath sound bilaterally. No wheezes crackles or rhonchi. Patient on high flow O2 HEART/CARDIOVASCULAR: Regular in rate and rhythm. S1 and S2 positive. ABDOMEN: Abdomen is soft, nontender. Patient has normal bowel sounds. SKIN: There is no rash. Warm and dry. NEURO: No focal motor deficit. Follows command. MUSCULOSKELETAL: No joint effusion or tenderness. EXTRIMITY: No edema, no cyanosis or clubbing. PSYCH: Cooperative but appears anxious. - Constitutional Vitals: Vital Signs - 12hr 09/18/21 09/18/21 09/18/21 10:00 11:52 17:32 Temperature 97.9 F 98.3 F Pulse Rate 114 H 115 H Respiratory 24 24 Rate Blood Pressure 136/78 146/106 O2 Sat by Pulse 95 96 92 Oximetry - Labs CBC & Chem 7: 09/08/21 04:31 09/09/21 07:50 Labs: Abnormal lab results 09/17/21 09/18/21 09/18/21 Range/Units 21:19 08:00 11:50 POC Glucose 255 H 170 H 244 H (70-105) mg/dL 09/18/21 Range/Units 17:30 POC Glucose 218 H (70-105) mg/dL
[2021-09-18] MEDS: ALPRAZolam 1 MG TAB PO PRN (21:56)
[2021-09-18] MEDS: INSULIN GLARGINE 100 UNITS/ML SUB-Q SCH (21:58)
[2021-09-19] MEDS: INSULIN LISPRO 100 UNIT/ML SUB-Q SCH ×4 (03:03→18:58)
[2021-09-19] MEDS: HEPARIN 5,000 UNIT/1 ML VIAL SUB-Q SCH ×2 (05:52→13:20)
[2021-09-19] MEDS: methylPREDNISolone Sod Succinate 40 MG/1 ML INJ IV SCH ×2 (05:52→13:20)
[2021-09-19] MEDS: FAMOTIDINE 20 MG TAB PO SCH ×2 (07:58→10:00)
[2021-09-19 14:40] LABS: Hemoglobin 13.2 gm/dl (10.1-14.3); Mean Corpuscular HGB Conc 31 % (30-34); Mean Corpuscular Volume 91 fl (79-97); Platelet Count 305 K/mm3 (140-440); Red Blood Count 4.71 M/mm3 (3.65-5.03); Red Cell Distribution Width 18.6 % (13.2-15.2)
[2021-09-19 14:41] LABS: Hematocrit 42.9 % (30.3-42.9)
[2021-09-19 15:06] LABS: Blood Urea Nitrogen 21 mg/dL (7-17); Calcium 8.8 mg/dL (8.4-10.2); Hemolysis Index 195
[2021-09-19 15:08] LABS: BUN/Creatinine Ratio 105
--- NOTE | 2021-09-19 15:39 | Progress Note ---
Assessment and Plan 50-year-old female patient was admitted with COVID-19 pneumonia severe hypoxic hypercapnic respiratory failure had a prolonged stay in the hospital for 3 to 4 months and was discharged on 08/28/2021 on home oxygen and long-term st eroids and other supportive care, patient again was admitted on the stabilized and discharged on the . patient already has home oxygen and all the medications are needed. Patient readmitted 09/01/21 with acute hypoxic respiratory failure and altered level of consciousness, s/p BiPAP, chest x-ray gaseous distention of the stomach. Pulmonary following, patient also has generalized anxiety on Xanax. 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 Gomes PCR test is negative Severe hypoxic and hypercapnic respiratory failure, required BiPAP on admission Patient was on 10 L of nasal cannula oxygen/100% nonrebreather/BiPAP, currently on high flow O2 X-ray chest show moderate gaseous distention of the stomach severe diffuse bilateral chronic parenchymal opacities that have not changed chest x-ray Patient was recently discharged on on home 3 L oxygen CTA chest; no CT evidence of PE, diffuse severe bilateral mixed interstitial and alveolar opacities CT head without contrast; there is 2 small 2 to 3 mm focus of calcification along the lateral left frontal lobe which appears to be incidental, Patient is receiving currently high-dose Solu-Medrol therapy, per pulmonary --Abdominal distention with ileus Pulmonary recommended NG tube placement with intermittent suction for gastric distention Repeat abdomen x-ray 09/03 showed no gaseous distention, now tolerating diet -- IDDM (insulin dependent diabetes mellitus) Continue home insulin and coverage Follow hemoglobin A1c, SSI as needed --[place] (generalized anxiety disorder) Continue Xanax as necessary --Hypokalemia, repleted --hyperkalemia, ordered kayexalate --Uncontrolled blood sugars probably secondary to steroids, increase Lantus to 15 units subcu daily --Sepsis secondary to UTI/E. coli Completed treatment with Levaquin --DVT prophylaxis On Lovenox and GI prophylaxis Daily clinical course: 09/01/2021; on intermittent BiPAP, chest x-ray gaseous distention of stomach recommend, NG tube placement intermittent suction and supportive care Disposition monitor closely wean will oxygen;, 2 -4 to 5 L nasal cannula, and discharge when stable. Patient already has home oxygen 09/02: Remains hypoxic and hypercapnic, somnolent post Ativan, on high flow O2 30 to 40 L, high-dose Solu-Medrol and NG tube for gastric distention. wean FiO2 as tolerated and BiPAP as needed for the hypercapnia, recheck ABG. Discussed with the pulmonary and nursing staff. 09/03: Off BiPAP this morning, continue to follow serum glucose, patient on high-dose steroid, continue high flow O2 and wean off as tolerated. Repeat abdominal x-ray showed non significant normal bowel gas pattern. Will initiate on clear liquid diet, will monitor off NG tube. 09/04; continue to follow clinically, empiric steroid, wean off O2 as tolerated, patient remains on high flow O2. Will advance diet as tolerated. Continue to monitor serum blood glucose and adjust insulin doses accordingly. 09/05: Follow clinically, consistent carb diet, high-dose empiric steroid, wean off O2 as tolerated. Transfer out of intermediate care to [facility] with telemetry. 09/06: Remains on high flow O2 25 L, continue to provide supportive care, wean off O2 as tolerated, adjust serum blood glucose with insulin, tolerating consistent carb diet. 09/07/21: Continue to replete electrolytes and monitor. Wean off O2 as tolerated, guarded prognosis, continue empiric steroid. Follow clinically. 09/08/21; continue to replete and monitor potassium, wean off O2 as tolerated. Patient remains on 25 L high flow O2. Continue empiric steroid, follow clinically. 09/09/21; spiking temp, will order pancultures, repeat chest x-ray, guarded prognosis, remains on 25 L high flow O2, follow clinically 09/10; patient is afebrile, remains on high flow 25 L nasal cannula oxygen, wean as tolerated, patient already has home oxygen Wean aggressively as tolerated, if no improvement consider hospice 09/11; patient's urine cultures positive for gram-negative rods, will add Levaquin 750 mg IV daily, follow culture sensitivities and adjust as needed Patient is anxious, has intermittent panic episodes, continue Xanax, consult psych 09/12; urine cultures positive for E. coli, sensitivities include Levaquin, remains on high flow nasal cannula oxygen, wean as tolerated Consults and recommendations noted and appreciated 09/13; sepsis due to UTI E. coli, remains on high flow nasal cannula oxygen, wean as tolerated, psych evaluation noted no new recommendations 09/14/21: On HFNC 20 L/35% FiO2/95 O2 sats, wean as tolerated, continue current management 09/15/21; remains an HFNC oxygen, chronically ill looking. Consider LTAC placement, social issues 09/16/2021; on 30 L HFNC O2, wean as tolerated 09/17/2021; remains on HFNC 30 L/35% FiO2/94 O2 sats, steroids reduced to 40 mg every 8 hours, follow pulmonary recommendations Unable to consider LTAC, as patient is undocumented and no resources, DC planning per case management when stable 09/18/20; remains on 30 L high flow O2, case hardener working on LTAC versus hospice placement. Continue to provide supportive care 09/19/20: Remains on high flow O2, potassium 5.7 today -ordered for Kayexalate. Will monitor BMP. Patient remains on high flow O2. Pending placement. Subjective Date of service: 09/19/21 Interval history: Patient seen and examined. Medical records and medication list reviewed. No acute event overnight noted by the RN. Patient on high flow O2, tolerating diet, Discussed plan of care at bedside with patient's RN and CM . Objective - Exam Narrative Exam: GENERAL: well-developed and well-nourished female lying on bed appeared to be in moderate discomfort. HEENT: Normocephalic. Atraumatic. No conjunctival congestion or icterus. Patient has moist mucous membranes. NECK: Supple. Trachea midline. CHEST/LUNGS: Diminished breath sound bilaterally. No wheezes crackles or rhonchi. Patient on high flow O2 HEART/CARDIOVASCULAR: Regular in rate and rhythm. S1 and S2 positive. ABDOMEN: Abdomen is soft, nontender. Patient has normal bowel sounds. SKIN: There is no rash. Warm and dry. NEURO: No focal motor deficit. Follows command. MUSCULOSKELETAL: No joint effusion or tenderness. EXTRIMITY: No edema, no cyanosis or clubbing. PSYCH: Cooperative but appears anxious. - Constitutional Vitals: Vital Signs - 12hr 09/19/21 09/19/21 09/19/21 05:20 08:16 13:12 Temperature 97.5 F L 97.4 F L Pulse Rate 100 H 111 H Respiratory 20 24 Rate Blood Pressure 141/81 141/75 O2 Sat by Pulse 98 95 92 Oximetry - Labs CBC & Chem 7: 09/19/21 14:00 09/19/21 14:00 Labs: Abnormal lab results 09/18/21 09/18/21 09/19/21 Range/Units 17:30 22:32 12:20 RDW (13.2-15.2) % Sodium (137-145) mmol/L Potassium (3.6-5.0) mmol/L Chloride (98-107) mmol/L Carbon Dioxide (22-30) mmol/L BUN (7-17) mg/dL Creatinine (0.6-1.2) mg/dL Glucose (65-100) mg/dL POC Glucose 218 H 295 H 220 H (70-105) mg/dL 09/19/21 09/19/21 Range/Units 14:00 14:00 RDW 18.6 H (13.2-15.2) % Sodium 136 L (137-145) mmol/L Potassium 5.7 H (3.6-5.0) mmol/L Chloride 92.1 L (98-107) mmol/L Carbon Dioxide 37 H (22-30) mmol/L BUN 21 H (7-17) mg/dL Creatinine 0.2 L (0.6-1.2) mg/dL Glucose 230 H (65-100) mg/dL POC Glucose (70-105) mg/dL
[2021-09-19] MEDS ORDERED: SODIUM POLYSTYRENE 15 GM/60 ML ORAL LIQD PO ONE ×2 (16:29→19:00)
[2021-09-20] MEDS: INSULIN GLARGINE 100 UNITS/ML SUB-Q SCH ×2 (00:57→21:57)
[2021-09-20] MEDS: methylPREDNISolone Sod Succinate 40 MG/1 ML INJ IV SCH ×4 (00:58→21:57)
[2021-09-20] MEDS: HEPARIN 5,000 UNIT/1 ML VIAL SUB-Q SCH ×4 (00:58→21:57)
[2021-09-20] MEDS: FAMOTIDINE 20 MG TAB PO SCH ×3 (00:59→21:57)
[2021-09-20] MEDS: INSULIN LISPRO 100 UNIT/ML SUB-Q SCH ×5 (01:00→21:56)
[2021-09-20] MEDS: ACETAMINOPHEN 325 MG TAB PO PRN ×3 (01:03→17:57)
[2021-09-20] MEDS: ALPRAZolam 1 MG TAB PO PRN ×2 (01:03→21:59)
[2021-09-20 05:12] LABS: Blood Urea Nitrogen 18 mg/dL (7-17); Hemolysis Index 49
[2021-09-20 05:13] LABS: BUN/Creatinine Ratio 90
--- NOTE | 2021-09-20 10:00 | Progress Note ---
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 Suggest dropping to either 20q12 or change to 40 of prednisone daily starting tomorrow. Wean FiO2 for sats >88%. Will see as needed over the weekend. I am back on Thursday. 09/18/21: Lasix made no improvement. So will not repeat. Will drop steroids to 20q8 starting now. 09/16/21: Lasix 20mg IV x1 today. Prone as tolerated. Wean Flow and FiO2 for sats >88% 09/12/21: No new recs. Will drop steroids to 40q8 09/10/21: Please be more aggressive with oxygen weaning. Will consider weaning steroids again or Thursday. 09/08/21: Continue steroids at current dosing. Wean Fio2 for sats >88%. 09/06/21: Will drop steroids to 60 q8 starting now. 09/04/21: Will start to taper steroids today. Continue to wean FiO2 as tolerated. Anxiety control. High dose steroids Anxiety therapy Wean FiO2 as tolerated ABG not indicated currently as she is sleepy from IV ativan administered because she is NPO and could not get her xanax Subjective Date of service: 09/20/21 Interval history: Still on 30 and 35%. Good sats. Objective Vital Signs - 12hr 09/19/21 09/20/21 09/20/21 22:44 01:47 02:26 Temperature 98.0 F Pulse Rate 111 H Respiratory 20 Rate Blood Pressure 128/84 O2 Sat by Pulse 91 95 95 Oximetry 09/20/21 09/20/21 09/20/21 03:45 06:00 07:59 Temperature 97.4 F L 98.4 F Pulse Rate 99 H 99 H 104 H Respiratory 20 18 Rate Blood Pressure 140/84 127/78 O2 Sat by Pulse 96 95 Oximetry CBC and BMP: 09/19/21 14:00 09/20/21 04:32 ABG, PT/INR, D-dimer: ABG ABG pH 7.240 pH Units (7.350-7.450) L 09/01/21 23:56 ABG pCO2 111.3 mm Hg 09/01/21 23:56 ABG pO2 198.0 mm Hg (80.0-90.0) H 09/01/21 23:56 ABG O2 Saturation 99.0 % (95.0-99.0) 09/01/21 23:56 PT/INR, D-dimer D-Dimer 710.59 ng/mlDDU (0-234) H 08/31/21 19:32 Abnormal lab findings: Abnormal Labs 08/31/21 08/31/21 08/31/21 19:32 19:32 19:32 Hct RDW 16.4 H Lymph % (Auto) [place] % (Auto) 9.0 H Lymph # (Auto) [place] # (Auto) 1.0 H Seg Neutrophils % 76.2 H Seg Neuts % (Manual) Lymphocytes % (Manual) Seg Neutrophils # 8.3 H Lymphocytes # (Manual) D-Dimer 710.59 H ABG pH ABG pO2 ABG HCO3 ABG O2 Saturation ABG Base Excess Sodium Potassium Chloride 92.7 L Carbon Dioxide 36 H BUN Creatinine 0.4 L D Glucose 249 H POC Glucose Calcium ALT NT-Pro-B Natriuret Pep Albumin Urine WBC (Auto) 08/31/21 08/31/21 09/01/21 19:32 21:05 09:24 Hct RDW Lymph % (Auto) [place] % (Auto) Lymph # (Auto) [place] # (Auto) Seg Neutrophils % Seg Neuts % (Manual) Lymphocytes % (Manual) Seg Neutrophils # Lymphocytes # (Manual) D-Dimer ABG pH 7.244 L ABG pO2 307.7 H ABG HCO3 47.9 H ABG O2 Saturation 99.4 H ABG Base Excess 16.0 H Sodium Potassium Chloride Carbon Dioxide BUN Creatinine Glucose POC Glucose 106 H Calcium ALT NT-Pro-B Natriuret Pep 524.1 H Albumin Urine WBC (Auto) 09/01/21 09/01/21 09/01/21 13:39 16:22 23:56 Hct RDW Lymph % (Auto) [place] % (Auto) Lymph # (Auto) [place] # (Auto) Seg Neutrophils % Seg Neuts % (Manual) Lymphocytes % (Manual) Seg Neutrophils # Lymphocytes # (Manual) D-Dimer ABG pH 7.240 L ABG pO2 198.0 H ABG HCO3 46.6 H ABG O2 Saturation ABG Base Excess 14.8 H Sodium Potassium Chloride Carbon Dioxide BUN Creatinine Glucose POC Glucose 154 H 188 H Calcium ALT NT-Pro-B Natriuret Pep Albumin Urine WBC (Auto) 09/02/21 09/02/21 09/02/21 01:49 07:22 07:22 Hct RDW 16.4 H Lymph % (Auto) [place] % (Auto) Lymph # (Auto) [place] # (Auto) Seg Neutrophils % Seg Neuts % (Manual) 97.0 H Lymphocytes % (Manual) 2.0 L Seg Neutrophils # Lymphocytes # (Manual) 0.1 L D-Dimer ABG pH ABG pO2 ABG HCO3 ABG O2 Saturation ABG Base Excess Sodium Potassium Chloride 82.7 L Carbon Dioxide 41 H* BUN 21 H Creatinine 0.3 L Glucose 198 H POC Glucose 132 H Calcium ALT NT-Pro-B Natriuret Pep Albumin Urine WBC (Auto) 09/02/21 09/02/21 09/02/21 08:29 11:27 16:59 Hct RDW Lymph % (Auto) [place] % (Auto) Lymph # (Auto) [place] # (Auto) Seg Neutrophils % Seg Neuts % (Manual) Lymphocytes % (Manual) Seg Neutrophils # Lymphocytes # (Manual) D-Dimer ABG pH ABG pO2 ABG HCO3 ABG O2 Saturation ABG Base Excess Sodium Potassium Chloride Carbon Dioxide BUN Creatinine Glucose POC Glucose 201 H 232 H 118 H Calcium ALT NT-Pro-B Natriuret Pep Albumin Urine WBC (Auto) 09/02/21 09/03/21 09/03/21 22:08 06:05 06:05 Hct RDW 16.5 H Lymph % (Auto) [place] % (Auto) Lymph # (Auto) [place] # (Auto) Seg Neutrophils % Seg Neuts % (Manual) 94.0 H Lymphocytes % (Manual) 3.0 L Seg Neutrophils # Lymphocytes # (Manual) 0.2 L D-Dimer ABG pH ABG pO2 ABG HCO3 ABG O2 Saturation ABG Base Excess Sodium Potassium Chloride 79.3 L Carbon Dioxide 52 H* D BUN 27 H Creatinine 0.2 L Glucose 228 H POC Glucose 241 H Calcium 10.4 H ALT 71 H NT-Pro-B Natriuret Pep Albumin 3.8 L Urine WBC (Auto) 09/03/21 09/03/21 09/03/21 07:53 11:37 15:52 Hct RDW Lymph % (Auto) [place] % (Auto) Lymph # (Auto) [place] # (Auto) Seg Neutrophils % Seg Neuts % (Manual) Lymphocytes % (Manual) Seg Neutrophils # Lymphocytes # (Manual) D-Dimer ABG pH ABG pO2 ABG HCO3 ABG O2 Saturation ABG Base Excess Sodium Potassium Chloride Carbon Dioxide BUN Creatinine Glucose POC Glucose 241 H 202 H 284 H Calcium ALT NT-Pro-B Natriuret Pep Albumin Urine WBC (Auto) 09/03/21 09/04/21 09/04/21 22:07 08:33 11:16 Hct RDW Lymph % (Auto) [place] % (Auto) Lymph # (Auto) [place] # (Auto) Seg Neutrophils % Seg Neuts % (Manual) Lymphocytes % (Manual) Seg Neutrophils # Lymphocytes # (Manual) D-Dimer ABG pH ABG pO2 ABG HCO3 ABG O2 Saturation ABG Base Excess Sodium Potassium Chloride Carbon Dioxide BUN Creatinine Glucose POC Glucose 311 H 232 H 356 H Calcium ALT NT-Pro-B Natriuret Pep Albumin Urine WBC (Auto) 09/04/21 09/04/21 09/05/21 17:10 23:05 08:08 Hct RDW Lymph % (Auto) [place] % (Auto) Lymph # (Auto) [place] # (Auto) Seg Neutrophils % Seg Neuts % (Manual) Lymphocytes % (Manual) Seg Neutrophils # Lymphocytes # (Manual) D-Dimer ABG pH ABG pO2 ABG HCO3 ABG O2 Saturation ABG Base Excess Sodium Potassium Chloride Carbon Dioxide BUN Creatinine Glucose POC Glucose 328 H 150 H 342 H Calcium ALT NT-Pro-B Natriuret Pep Albumin Urine WBC (Auto) 09/05/21 09/05/21 09/05/21 11:04 13:23 13:23 Hct RDW 17.1 H Lymph % (Auto) [place] % (Auto) Lymph # (Auto) [place] # (Auto) Seg Neutrophils % Seg Neuts % (Manual) Lymphocytes % (Manual) Seg Neutrophils # Lymphocytes # (Manual) D-Dimer ABG pH ABG pO2 ABG HCO3 ABG O2 Saturation ABG Base Excess Sodium Potassium 2.6 L* D Chloride 74.4 L Carbon Dioxide 46 H* BUN Creatinine 0.3 L Glucose 389 H POC Glucose 395 H Calcium ALT NT-Pro-B Natriuret Pep Albumin Urine WBC (Auto) 09/05/21 09/05/21 09/06/21 16:22 21:09 08:02 Hct RDW Lymph % (Auto) [place] % (Auto) Lymph # (Auto) [place] # (Auto) Seg Neutrophils % Seg Neuts % (Manual) Lymphocytes % (Manual) Seg Neutrophils # Lymphocytes # (Manual) D-Dimer ABG pH ABG pO2 ABG HCO3 ABG O2 Saturation ABG Base Excess Sodium Potassium Chloride Carbon Dioxide BUN Creatinine Glucose POC Glucose 195 H 243 H 119 H Calcium ALT NT-Pro-B Natriuret Pep Albumin Urine WBC (Auto) 09/06/21 09/06/21 09/06/21 11:00 11:19 16:06 Hct RDW Lymph % (Auto) [place] % (Auto) Lymph # (Auto) [place] # (Auto) Seg Neutrophils % Seg Neuts % (Manual) Lymphocytes % (Manual) Seg Neutrophils # Lymphocytes # (Manual) D-Dimer ABG pH ABG pO2 ABG HCO3 ABG O2 Saturation ABG Base Excess Sodium 136 L Potassium Chloride 78.3 L Carbon Dioxide 47 H* BUN Creatinine 0.3 L Glucose 354 H POC Glucose 309 H 381 H Calcium ALT NT-Pro-B Natriuret Pep Albumin Urine WBC (Auto) 09/06/21 09/07/21 09/07/21 22:25 11:11 16:50 Hct RDW Lymph % (Auto) [place] % (Auto) Lymph # (Auto) [place] # (Auto) Seg Neutrophils % Seg Neuts % (Manual) Lymphocytes % (Manual) Seg Neutrophils # Lymphocytes # (Manual) D-Dimer ABG pH ABG pO2 ABG HCO3 ABG O2 Saturation ABG Base Excess Sodium Potassium Chloride Carbon Dioxide BUN Creatinine Glucose POC Glucose 217 H 442 H 222 H Calcium ALT NT-Pro-B Natriuret Pep Albumin Urine WBC (Auto) 09/07/21 09/08/21 09/08/21 21:52 04:31 04:31 Hct 44.9 H RDW 17.2 H Lymph % (Auto) 12.3 L [place] % (Auto) Lymph # (Auto) 1.0 L [place] # (Auto) Seg Neutrophils % 79.1 H Seg Neuts % (Manual) Lymphocytes % (Manual) Seg Neutrophils # Lymphocytes # (Manual) D-Dimer ABG pH ABG pO2 ABG HCO3 ABG O2 Saturation ABG Base Excess Sodium Potassium 2.8 L* D Chloride 87.6 L Carbon Dioxide 45 H* BUN Creatinine 0.2 L Glucose 46 L POC Glucose 360 H Calcium ALT NT-Pro-B Natriuret Pep Albumin Urine WBC (Auto) 09/08/21 09/08/21 09/08/21 05:25 05:53 11:50 Hct RDW Lymph % (Auto) [place] % (Auto) Lymph # (Auto) [place] # (Auto) Seg Neutrophils % Seg Neuts % (Manual) Lymphocytes % (Manual) Seg Neutrophils # Lymphocytes # (Manual) D-Dimer ABG pH ABG pO2 ABG HCO3 ABG O2 Saturation ABG Base Excess Sodium Potassium Chloride Carbon Dioxide BUN Creatinine Glucose POC Glucose 39 L 64 L 280 H Calcium ALT NT-Pro-B Natriuret Pep Albumin Urine WBC (Auto) 09/08/21 09/08/21 09/09/21 16:20 21:32 07:20 Hct RDW Lymph % (Auto) [place] % (Auto) Lymph # (Auto) [place] # (Auto) Seg Neutrophils % Seg Neuts % (Manual) Lymphocytes % (Manual) Seg Neutrophils # Lymphocytes # (Manual) D-Dimer ABG pH ABG pO2 ABG HCO3 ABG O2 Saturation ABG Base Excess Sodium Potassium Chloride Carbon Dioxide BUN Creatinine Glucose POC Glucose 256 H 203 H 194 H Calcium ALT NT-Pro-B Natriuret Pep Albumin Urine WBC (Auto) 09/09/21 09/09/21 09/09/21 07:50 11:13 16:20 Hct RDW Lymph % (Auto) [place] % (Auto) Lymph # (Auto) [place] # (Auto) Seg Neutrophils % Seg Neuts % (Manual) Lymphocytes % (Manual) Seg Neutrophils # Lymphocytes # (Manual) D-Dimer ABG pH ABG pO2 ABG HCO3 ABG O2 Saturation ABG Base Excess Sodium Potassium Chloride 88.8 L Carbon Dioxide 39 H BUN Creatinine < 0.2 L Glucose 197 H POC Glucose 258 H 231 H Calcium ALT NT-Pro-B Natriuret Pep Albumin Urine WBC (Auto) 09/09/21 09/10/21 09/10/21 22:17 07:00 08:02 Hct RDW Lymph % (Auto) [place] % (Auto) Lymph # (Auto) [place] # (Auto) Seg Neutrophils % Seg Neuts % (Manual) Lymphocytes % (Manual) Seg Neutrophils # Lymphocytes # (Manual) D-Dimer ABG pH ABG pO2 ABG HCO3 ABG O2 Saturation ABG Base Excess Sodium Potassium Chloride Carbon Dioxide BUN Creatinine Glucose POC Glucose 222 H 213 H Calcium ALT NT-Pro-B Natriuret Pep Albumin Urine WBC (Auto) 24.0 H 09/10/21 09/10/21 09/10/21 11:22 15:49 22:08 Hct RDW Lymph % (Auto) [place] % (Auto) Lymph # (Auto) [place] # (Auto) Seg Neutrophils % Seg Neuts % (Manual) Lymphocytes % (Manual) Seg Neutrophils # Lymphocytes # (Manual) D-Dimer ABG pH ABG pO2 ABG HCO3 ABG O2 Saturation ABG Base Excess Sodium Potassium Chloride Carbon Dioxide BUN Creatinine Glucose POC Glucose 241 H 201 H 212 H Calcium ALT NT-Pro-B Natriuret Pep Albumin Urine WBC (Auto) 09/11/21 09/11/21 09/11/21 08:01 11:21 16:41 Hct RDW Lymph % (Auto) [place] % (Auto) Lymph # (Auto) [place] # (Auto) Seg Neutrophils % Seg Neuts % (Manual) Lymphocytes % (Manual) Seg Neutrophils # Lymphocytes # (Manual) D-Dimer ABG pH ABG pO2 ABG HCO3 ABG O2 Saturation ABG Base Excess Sodium Potassium Chloride Carbon Dioxide BUN Creatinine Glucose POC Glucose 207 H 265 H 234 H Calcium ALT NT-Pro-B Natriuret Pep Albumin Urine WBC (Auto) 09/11/21 09/12/21 09/12/21 22:09 08:38 11:28 Hct RDW Lymph % (Auto) [place] % (Auto) Lymph # (Auto) [place] # (Auto) Seg Neutrophils % Seg Neuts % (Manual) Lymphocytes % (Manual) Seg Neutrophils # Lymphocytes # (Manual) D-Dimer ABG pH ABG pO2 ABG HCO3 ABG O2 Saturation ABG Base Excess Sodium Potassium Chloride Carbon Dioxide BUN Creatinine Glucose POC Glucose 293 H 222 H 326 H Calcium ALT NT-Pro-B Natriuret Pep Albumin Urine WBC (Auto) 09/12/21 09/12/21 09/13/21 16:25 21:45 07:41 Hct RDW Lymph % (Auto) [place] % (Auto) Lymph # (Auto) [place] # (Auto) Seg Neutrophils % Seg Neuts % (Manual) Lymphocytes % (Manual) Seg Neutrophils # Lymphocytes # (Manual) D-Dimer ABG pH ABG pO2 ABG HCO3 ABG O2 Saturation ABG Base Excess Sodium Potassium Chloride Carbon Dioxide BUN Creatinine Glucose POC Glucose 130 H 191 H 165 H Calcium ALT NT-Pro-B Natriuret Pep Albumin Urine WBC (Auto) 09/13/21 09/13/21 09/13/21 11:12 16:59 22:01 Hct RDW Lymph % (Auto) [place] % (Auto) Lymph # (Auto) [place] # (Auto) Seg Neutrophils % Seg Neuts % (Manual) Lymphocytes % (Manual) Seg Neutrophils # Lymphocytes # (Manual) D-Dimer ABG pH ABG pO2 ABG HCO3 ABG O2 Saturation ABG Base Excess Sodium Potassium Chloride Carbon Dioxide BUN Creatinine Glucose POC Glucose 263 H 162 H 276 H Calcium ALT NT-Pro-B Natriuret Pep Albumin Urine WBC (Auto) 09/14/21 09/14/21 09/14/21 08:12 12:28 16:30 Hct RDW Lymph % (Auto) [place] % (Auto) Lymph # (Auto) [place] # (Auto) Seg Neutrophils % Seg Neuts % (Manual) Lymphocytes % (Manual) Seg Neutrophils # Lymphocytes # (Manual) D-Dimer ABG pH ABG pO2 ABG HCO3 ABG O2 Saturation ABG Base Excess Sodium Potassium Chloride Carbon Dioxide BUN Creatinine Glucose POC Glucose 179 H 212 H 227 H Calcium ALT NT-Pro-B Natriuret Pep Albumin Urine WBC (Auto) 09/14/21 09/15/21 09/15/21 22:56 12:12 18:05 Hct RDW Lymph % (Auto) [place] % (Auto) Lymph # (Auto) [place] # (Auto) Seg Neutrophils % Seg Neuts % (Manual) Lymphocytes % (Manual) Seg Neutrophils # Lymphocytes # (Manual) D-Dimer ABG pH ABG pO2 ABG HCO3 ABG O2 Saturation ABG Base Excess Sodium Potassium Chloride Carbon Dioxide BUN Creatinine Glucose POC Glucose 275 H 297 H 247 H Calcium ALT NT-Pro-B Natriuret Pep Albumin Urine WBC (Auto) 09/15/21 09/16/21 09/16/21 22:21 07:51 11:22 Hct RDW Lymph % (Auto) [place] % (Auto) Lymph # (Auto) [place] # (Auto) Seg Neutrophils % Seg Neuts % (Manual) Lymphocytes % (Manual) Seg Neutrophils # Lymphocytes # (Manual) D-Dimer ABG pH ABG pO2 ABG HCO3 ABG O2 Saturation ABG Base Excess Sodium Potassium Chloride Carbon Dioxide BUN Creatinine Glucose POC Glucose 309 H 196 H 278 H Calcium ALT NT-Pro-B Natriuret Pep Albumin Urine WBC (Auto) 01/12/0309/16/21 09/17/21 16:10 21:56 07:45 Hct RDW Lymph % (Auto) [place] % (Auto) Lymph # (Auto) [place] # (Auto) Seg Neutrophils % Seg Neuts % (Manual) Lymphocytes % (Manual) Seg Neutrophils # Lymphocytes # (Manual) D-Dimer ABG pH ABG pO2 ABG HCO3 ABG O2 Saturation ABG Base Excess Sodium Potassium Chloride Carbon Dioxide BUN Creatinine Glucose POC Glucose 264 H 246 H 174 H Calcium ALT NT-Pro-B Natriuret Pep Albumin Urine WBC (Auto) 09/17/21 09/17/21 09/17/21 11:25 15:43 21:19 Hct RDW Lymph % (Auto) [place] % (Auto) Lymph # (Auto) [place] # (Auto) Seg Neutrophils % Seg Neuts % (Manual) Lymphocytes % (Manual) Seg Neutrophils # Lymphocytes # (Manual) D-Dimer ABG pH ABG pO2 ABG HCO3 ABG O2 Saturation ABG Base Excess Sodium Potassium Chloride Carbon Dioxide BUN Creatinine Glucose POC Glucose 275 H 242 H 255 H Calcium ALT NT-Pro-B Natriuret Pep Albumin Urine WBC (Auto) 09/18/21 09/18/21 09/18/21 08:00 11:50 17:30 Hct RDW Lymph % (Auto) [place] % (Auto) Lymph # (Auto) [place] # (Auto) Seg Neutrophils % Seg Neuts % (Manual) Lymphocytes % (Manual) Seg Neutrophils # Lymphocytes # (Manual) D-Dimer ABG pH ABG pO2 ABG HCO3 ABG O2 Saturation ABG Base Excess Sodium Potassium Chloride Carbon Dioxide BUN Creatinine Glucose POC Glucose 170 H 244 H 218 H Calcium ALT NT-Pro-B Natriuret Pep Albumin Urine WBC (Auto) 09/18/21 09/19/21 09/19/21 22:32 12:20 14:00 Hct RDW 18.6 H Lymph % (Auto) [place] % (Auto) Lymph # (Auto) [place] # (Auto) Seg Neutrophils % Seg Neuts % (Manual) Lymphocytes % (Manual) Seg Neutrophils # Lymphocytes # (Manual) D-Dimer ABG pH ABG pO2 ABG HCO3 ABG O2 Saturation ABG Base Excess Sodium Potassium Chloride Carbon Dioxide BUN Creatinine Glucose POC Glucose 295 H 220 H Calcium ALT NT-Pro-B Natriuret Pep Albumin Urine WBC (Auto) 09/19/21 09/19/21 09/19/21 14:00 18:32 21:19 Hct RDW Lymph % (Auto) [place] % (Auto) Lymph # (Auto) [place] # (Auto) Seg Neutrophils % Seg Neuts % (Manual) Lymphocytes % (Manual) Seg Neutrophils # Lymphocytes # (Manual) D-Dimer ABG pH ABG pO2 ABG HCO3 ABG O2 Saturation ABG Base Excess Sodium 136 L Potassium 5.7 H Chloride 92.1 L Carbon Dioxide 37 H BUN 21 H Creatinine 0.2 L Glucose 230 H POC Glucose 173 H 190 H Calcium ALT NT-Pro-B Natriuret Pep Albumin Urine WBC (Auto) 09/20/21 09/20/21 04:32 07:57 Hct RDW Lymph % (Auto) [place] % (Auto) Lymph # (Auto) [place] # (Auto) Seg Neutrophils % Seg Neuts % (Manual) Lymphocytes % (Manual) Seg Neutrophils # Lymphocytes # (Manual) D-Dimer ABG pH ABG pO2 ABG HCO3 ABG O2 Saturation ABG Base Excess Sodium 135 L Potassium Chloride 92.3 L Carbon Dioxide 33 H BUN 18 H Creatinine 0.2 L Glucose 264 H POC Glucose 237 H Calcium ALT NT-Pro-B Natriuret Pep Albumin Urine WBC (Auto)
--- NOTE | 2021-09-20 16:13 | Progress Note ---
Assessment and Plan 50-year-old female patient was admitted with COVID-19 pneumonia severe hypoxic hypercapnic respiratory failure had a prolonged stay in the hospital for 3 to 4 months and was discharged on 08/28/2021 on home oxygen and long-term st eroids and other supportive care, patient again was admitted on the stabilized and discharged on the . patient already has home oxygen and all the medications are needed. Patient readmitted 09/01/21 with acute hypoxic respiratory failure and altered level of consciousness, s/p BiPAP, chest x-ray gaseous distention of the stomach. Pulmonary following, patient also has generalized anxiety on Xanax. 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 Gomes PCR test is negative Severe hypoxic and hypercapnic respiratory failure, required BiPAP on admission Patient was on 10 L of nasal cannula oxygen/100% nonrebreather/BiPAP, currently on high flow O2 X-ray chest show moderate gaseous distention of the stomach severe diffuse bilateral chronic parenchymal opacities that have not changed chest x-ray Patient was recently discharged on on home 3 L oxygen CTA chest; no CT evidence of PE, diffuse severe bilateral mixed interstitial and alveolar opacities CT head without contrast; there is 2 small 2 to 3 mm focus of calcification along the lateral left frontal lobe which appears to be incidental, Patient is receiving currently high-dose Solu-Medrol therapy, per pulmonary --Abdominal distention with ileus Pulmonary recommended NG tube placement with intermittent suction for gastric distention Repeat abdomen x-ray 09/03 showed no gaseous distention, now tolerating diet -- IDDM (insulin dependent diabetes mellitus) Continue home insulin and coverage Follow hemoglobin A1c, SSI as needed --[place] (generalized anxiety disorder) Continue Xanax as necessary --Hypokalemia, repleted --hyperkalemia, s/p kayexalate --Uncontrolled blood sugars probably secondary to steroids, increase Lantus to 15 units subcu daily --Sepsis secondary to UTI/E. coli Completed treatment with Levaquin --DVT prophylaxis On Lovenox and GI prophylaxis Daily clinical course: 09/01/2021; on intermittent BiPAP, chest x-ray gaseous distention of stomach recommend, NG tube placement intermittent suction and supportive care Disposition monitor closely wean will oxygen;, 2 -4 to 5 L nasal cannula, and discharge when stable. Patient already has home oxygen 09/02: Remains hypoxic and hypercapnic, somnolent post Ativan, on high flow O2 30 to 40 L, high-dose Solu-Medrol and NG tube for gastric distention. wean FiO2 as tolerated and BiPAP as needed for the hypercapnia, recheck ABG. Discussed with the pulmonary and nursing staff. 09/03: Off BiPAP this morning, continue to follow serum glucose, patient on high-dose steroid, continue high flow O2 and wean off as tolerated. Repeat abdominal x-ray showed non significant normal bowel gas pattern. Will initiate on clear liquid diet, will monitor off NG tube. 09/04; continue to follow clinically, empiric steroid, wean off O2 as tolerated, patient remains on high flow O2. Will advance diet as tolerated. Continue to monitor serum blood glucose and adjust insulin doses accordingly. 09/05: Follow clinically, consistent carb diet, high-dose empiric steroid, wean off O2 as tolerated. Transfer out of intermediate care to [facility] with telemetry. 09/06: Remains on high flow O2 25 L, continue to provide supportive care, wean off O2 as tolerated, adjust serum blood glucose with insulin, tolerating consistent carb diet. 09/07/21: Continue to replete electrolytes and monitor. Wean off O2 as tolerated, guarded prognosis, continue empiric steroid. Follow clinically. 09/08/21; continue to replete and monitor potassium, wean off O2 as tolerated. Patient remains on 25 L high flow O2. Continue empiric steroid, follow clinically. 09/09/21; spiking temp, will order pancultures, repeat chest x-ray, guarded p rognosis, remains on 25 L high flow O2, follow clinically 09/10; patient is afebrile, remains on high flow 25 L nasal cannula oxygen, wean as tolerated, patient already has home oxygen Wean aggressively as tolerated, if no improvement consider hospice 09/11; patient's urine cultures positive for gram-negative rods, will add Levaquin 750 mg IV daily, follow culture sensitivities and adjust as needed Patient is anxious, has intermittent panic episodes, continue Xanax, consult psych 09/12; urine cultures positive for E. coli, sensitivities include Levaquin, remains on high flow nasal cannula oxygen, wean as tolerated Consults and recommendations noted and appreciated 09/13; sepsis due to UTI E. coli, remains on high flow nasal cannula oxygen, wean as tolerated, psych evaluation noted no new recommendations 09/14/21: On HFNC 20 L/35% FiO2/95 O2 sats, wean as tolerated, continue current ma nagement 09/15/21; remains an HFNC oxygen, chronically ill looking. Consider LTAC placement, social issues 09/16/2021; on 30 L HFNC O2, wean as tolerated 09/17/2021; remains on HFNC 30 L/35% FiO2/94 O2 sats, steroids reduced to 40 mg every 8 hours, follow pulmonary recommendations Unable to consider LTAC, as patient is undocumented and no resources, DC planning per case management when stable 09/18/20; remains on 30 L high flow O2, senior case manager working on LTAC versus hospice placement. Continue to provide supportive care 09/19/20: Remains on high flow O2, potassium 5.7 today -ordered for Kayexalate. Will monitor BMP. Patient remains on high flow O2. Pending placement. 09/20/20: Remains on high flow O2, continue to monitor BMP. Multiple social issues, unable to find placement. Continue supportive care and wean off O2 as tolerated. Potassium 4.9 today. Subjective Date of service: 09/20/21 Interval history: Patient seen and examined. Medical records and medication list reviewed. No acute event overnight noted by the RN. Patient on high flow O2, tolerating diet, Discussed plan of care at bedside with patient's RN and CM . Objective - Exam Narrative Exam: GENERAL: well-developed and well-nourished female lying on bed appeared to be in moderate discomfort. HEENT: Normocephalic. Atraumatic. No conjunctival congestion or icterus. Patient has moist mucous membranes. NECK: Supple. Trachea midline. CHEST/LUNGS: Diminished breath sound bilaterally. No wheezes crackles or rhonchi. Patient on high flow O2 HEART/CARDIOVASCULAR: Regular in rate and rhythm. S1 and S2 positive. ABDOMEN: Abdomen is soft, nontender. Patient has normal bowel sounds. SKIN: There is no rash. Warm and dry. NEURO: No focal motor deficit. Follows command. MUSCULOSKELETAL: No joint effusion or tenderness. EXTRIMITY: No edema, no cyanosis or clubbing. PSYCH: Cooperative but appears anxious. - Constitutional Vitals: Vital Signs - 12hr 09/20/21 09/20/21 09/20/21 06:00 07:59 08:00 Temperature 98.4 F Pulse Rate 99 H 104 H Pulse Rate [ Radial] Respiratory 18 Rate Blood Pressure 127/78 O2 Sat by Pulse 95 95 Oximetry 09/20/21 09/20/21 09/20/21 10:00 11:08 14:00 Temperature 99.3 F Pulse Rate 89 108 H Pulse Rate [ 78 Radial] Respiratory 19 18 Rate Blood Pressure 137/82 O2 Sat by Pulse 96 93 92 Oximetry 09/20/21 15:20 Temperature 98.5 F Pulse Rate 110 H Pulse Rate [ Radial] Respiratory 18 Rate Blood Pressure 129/85 O2 Sat by Pulse 93 Oximetry - Labs CBC & Chem 7: 09/19/21 14:00 09/20/21 04:32 Labs: Abnormal lab results 09/19/21 09/19/21 09/20/21 Range/Units 18:32 21:19 04:32 Sodium 135 L (137-145) mmol/L Chloride 92.3 L (98-107) mmol/L Carbon Dioxide 33 H (22-30) mmol/L BUN 18 H (7-17) mg/dL Creatinine 0.2 L (0.6-1.2) mg/dL Glucose 264 H (65-100) mg/dL POC Glucose 173 H 190 H (70-105) mg/dL 09/20/21 09/20/21 09/20/21 Range/Units 07:57 11:06 15:19 Sodium (137-145) mmol/L Chloride (98-107) mmol/L Carbon Dioxide (22-30) mmol/L BUN (7-17) mg/dL Creatinine (0.6-1.2) mg/dL Glucose (65-100) mg/dL POC Glucose 237 H 232 H 195 H (70-105) mg/dL
[2021-09-21] MEDS: HEPARIN 5,000 UNIT/1 ML VIAL SUB-Q SCH ×3 (05:07→21:40)
[2021-09-21] MEDS: methylPREDNISolone Sod Succinate 40 MG/1 ML INJ IV SCH ×3 (05:07→21:39)
[2021-09-21] MEDS: INSULIN LISPRO 100 UNIT/ML SUB-Q SCH ×4 (08:51→21:38)
--- NOTE | 2021-09-21 09:22 | Progress Note ---
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 feels sl better Objective Vital Signs - 12hr 09/20/21 09/21/21 09/21/21 23:22 01:29 02:19 Temperature 98.3 F Pulse Rate 107 H Respiratory 19 Rate Blood Pressure 143/85 O2 Sat by Pulse 91 93 95 Oximetry 09/21/21 09/21/21 09/21/21 03:49 07:26 08:55 Temperature 98.0 F 98.4 F Pulse Rate 98 H 93 H Respiratory 20 16 Rate Blood Pressure 126/76 124/81 O2 Sat by Pulse 98 99 96 Oximetry Constitutional: no acute distress ENT: oropharynx moist Neck: supple Ascultation: Bilateral: diminished breath sounds Cardiovascular: regular rate and rhythm Gastrointestinal: normoactive bowel sounds, soft, non-tender Integumentary: normal Extremities: no cyanosis Neurologic: normal mental status CBC and BMP: 09/19/21 14:00 09/20/21 04:32 ABG, PT/INR, D-dimer: ABG ABG pH 7.240 pH Units (7.350-7.450) L 09/01/21 23:56 ABG pCO2 111.3 mm Hg 09/01/21 23:56 ABG pO2 198.0 mm Hg (80.0-90.0) H 09/01/21 23:56 ABG O2 Saturation 99.0 % (95.0-99.0) 09/01/21 23:56 PT/INR, D-dimer D-Dimer 710.59 ng/mlDDU (0-234) H 08/31/21 19:32 Abnormal lab findings: Abnormal Labs 08/31/21 08/31/21 08/31/21 19:32 19:32 19:32 Hct RDW 16.4 H Lymph % (Auto) [place] % (Auto) 9.0 H Lymph # (Auto) [place] # (Auto) 1.0 H Seg Neutrophils % 76.2 H Seg Neuts % (Manual) Lymphocytes % (Manual) Seg Neutrophils # 8.3 H Lymphocytes # (Manual) D-Dimer 710.59 H ABG pH ABG pO2 ABG HCO3 ABG O2 Saturation ABG Base Excess Sodium Potassium Chloride 92.7 L Carbon Dioxide 36 H BUN Creatinine 0.4 L D Glucose 249 H POC Glucose Calcium ALT NT-Pro-B Natriuret Pep Albumin Urine WBC (Auto) 08/31/21 08/31/21 09/01/21 19:32 21:05 09:24 Hct RDW Lymph % (Auto) [place] % (Auto) Lymph # (Auto) [place] # (Auto) Seg Neutrophils % Seg Neuts % (Manual) Lymphocytes % (Manual) Seg Neutrophils # Lymphocytes # (Manual) D-Dimer ABG pH 7.244 L ABG pO2 307.7 H ABG HCO3 47.9 H ABG O2 Saturation 99.4 H ABG Base Excess 16.0 H Sodium Potassium Chloride Carbon Dioxide BUN Creatinine Glucose POC Glucose 106 H Calcium ALT NT-Pro-B Natriuret Pep 524.1 H Albumin Urine WBC (Auto) 09/01/21 09/01/21 09/01/21 13:39 16:22 23:56 Hct RDW Lymph % (Auto) [place] % (Auto) Lymph # (Auto) [place] # (Auto) Seg Neutrophils % Seg Neuts % (Manual) Lymphocytes % (Manual) Seg Neutrophils # Lymphocytes # (Manual) D-Dimer ABG pH 7.240 L ABG pO2 198.0 H ABG HCO3 46.6 H ABG O2 Saturation ABG Base Excess 14.8 H Sodium Potassium Chloride Carbon Dioxide BUN Creatinine Glucose POC Glucose 154 H 188 H Calcium ALT NT-Pro-B Natriuret Pep Albumin Urine WBC (Auto) 09/02/21 09/02/21 09/02/21 01:49 07:22 07:22 Hct RDW 16.4 H Lymph % (Auto) [place] % (Auto) Lymph # (Auto) [place] # (Auto) Seg Neutrophils % Seg Neuts % (Manual) 97.0 H Lymphocytes % (Manual) 2.0 L Seg Neutrophils # Lymphocytes # (Manual) 0.1 L D-Dimer ABG pH ABG pO2 ABG HCO3 ABG O2 Saturation ABG Base Excess Sodium Potassium Chloride 82.7 L Carbon Dioxide 41 H* BUN 21 H Creatinine 0.3 L Glucose 198 H POC Glucose 132 H Calcium ALT NT-Pro-B Natriuret Pep Albumin Urine WBC (Auto) 09/02/21 09/02/21 09/02/21 08:29 11:27 16:59 Hct RDW Lymph % (Auto) [place] % (Auto) Lymph # (Auto) [place] # (Auto) Seg Neutrophils % Seg Neuts % (Manual) Lymphocytes % (Manual) Seg Neutrophils # Lymphocytes # (Manual) D-Dimer ABG pH ABG pO2 ABG HCO3 ABG O2 Saturation ABG Base Excess Sodium Potassium Chloride Carbon Dioxide BUN Creatinine Glucose POC Glucose 201 H 232 H 118 H Calcium ALT NT-Pro-B Natriuret Pep Albumin Urine WBC (Auto) 09/02/21 09/03/21 09/03/21 22:08 06:05 06:05 Hct RDW 16.5 H Lymph % (Auto) [place] % (Auto) Lymph # (Auto) [place] # (Auto) Seg Neutrophils % Seg Neuts % (Manual) 94.0 H Lymphocytes % (Manual) 3.0 L Seg Neutrophils # Lymphocytes # (Manual) 0.2 L D-Dimer ABG pH ABG pO2 ABG HCO3 ABG O2 Saturation ABG Base Excess Sodium Potassium Chloride 79.3 L Carbon Dioxide 52 H* D BUN 27 H Creatinine 0.2 L Glucose 228 H POC Glucose 241 H Calcium 10.4 H ALT 71 H NT-Pro-B Natriuret Pep Albumin 3.8 L Urine WBC (Auto) 09/03/21 09/03/21 09/03/21 07:53 11:37 15:52 Hct RDW Lymph % (Auto) [place] % (Auto) Lymph # (Auto) [place] # (Auto) Seg Neutrophils % Seg Neuts % (Manual) Lymphocytes % (Manual) Seg Neutrophils # Lymphocytes # (Manual) D-Dimer ABG pH ABG pO2 ABG HCO3 ABG O2 Saturation ABG Base Excess Sodium Potassium Chloride Carbon Dioxide BUN Creatinine Glucose POC Glucose 241 H 202 H 284 H Calcium ALT NT-Pro-B Natriuret Pep Albumin Urine WBC (Auto) 09/03/21 09/04/21 09/04/21 22:07 08:33 11:16 Hct RDW Lymph % (Auto) [place] % (Auto) Lymph # (Auto) [place] # (Auto) Seg Neutrophils % Seg Neuts % (Manual) Lymphocytes % (Manual) Seg Neutrophils # Lymphocytes # (Manual) D-Dimer ABG pH ABG pO2 ABG HCO3 ABG O2 Saturation ABG Base Excess Sodium Potassium Chloride Carbon Dioxide BUN Creatinine Glucose POC Glucose 311 H 232 H 356 H Calcium ALT NT-Pro-B Natriuret Pep Albumin Urine WBC (Auto) 09/04/21 09/04/21 09/05/21 17:10 23:05 08:08 Hct RDW Lymph % (Auto) [place] % (Auto) Lymph # (Auto) [place] # (Auto) Seg Neutrophils % Seg Neuts % (Manual) Lymphocytes % (Manual) Seg Neutrophils # Lymphocytes # (Manual) D-Dimer ABG pH ABG pO2 ABG HCO3 ABG O2 Saturation ABG Base Excess Sodium Potassium Chloride Carbon Dioxide BUN Creatinine Glucose POC Glucose 328 H 150 H 342 H Calcium ALT NT-Pro-B Natriuret Pep Albumin Urine WBC (Auto) 09/05/21 09/05/21 09/05/21 11:04 13:23 13:23 Hct RDW 17.1 H Lymph % (Auto) [place] % (Auto) Lymph # (Auto) [place] # (Auto) Seg Neutrophils % Seg Neuts % (Manual) Lymphocytes % (Manual) Seg Neutrophils # Lymphocytes # (Manual) D-Dimer ABG pH ABG pO2 ABG HCO3 ABG O2 Saturation ABG Base Excess Sodium Potassium 2.6 L* D Chloride 74.4 L Carbon Dioxide 46 H* BUN Creatinine 0.3 L Glucose 389 H POC Glucose 395 H Calcium ALT NT-Pro-B Natriuret Pep Albumin Urine WBC (Auto) 09/05/21 09/05/21 09/06/21 16:22 21:09 08:02 Hct RDW Lymph % (Auto) [place] % (Auto) Lymph # (Auto) [place] # (Auto) Seg Neutrophils % Seg Neuts % (Manual) Lymphocytes % (Manual) Seg Neutrophils # Lymphocytes # (Manual) D-Dimer ABG pH ABG pO2 ABG HCO3 ABG O2 Saturation ABG Base Excess Sodium Potassium Chloride Carbon Dioxide BUN Creatinine Glucose POC Glucose 195 H 243 H 119 H Calcium ALT NT-Pro-B Natriuret Pep Albumin Urine WBC (Auto) 09/06/21 09/06/21 09/06/21 11:00 11:19 16:06 Hct RDW Lymph % (Auto) [place] % (Auto) Lymph # (Auto) [place] # (Auto) Seg Neutrophils % Seg Neuts % (Manual) Lymphocytes % (Manual) Seg Neutrophils # Lymphocytes # (Manual) D-Dimer ABG pH ABG pO2 ABG HCO3 ABG O2 Saturation ABG Base Excess Sodium 136 L Potassium Chloride 78.3 L Carbon Dioxide 47 H* BUN Creatinine 0.3 L Glucose 354 H POC Glucose 309 H 381 H Calcium ALT NT-Pro-B Natriuret Pep Albumin Urine WBC (Auto) 09/06/21 09/07/21 09/07/21 22:25 11:11 16:50 Hct RDW Lymph % (Auto) [place] % (Auto) Lymph # (Auto) [place] # (Auto) Seg Neutrophils % Seg Neuts % (Manual) Lymphocytes % (Manual) Seg Neutrophils # Lymphocytes # (Manual) D-Dimer ABG pH ABG pO2 ABG HCO3 ABG O2 Saturation ABG Base Excess Sodium Potassium Chloride Carbon Dioxide BUN Creatinine Glucose POC Glucose 217 H 442 H 222 H Calcium ALT NT-Pro-B Natriuret Pep Albumin Urine WBC (Auto) 09/07/21 09/08/21 09/08/21 21:52 04:31 04:31 Hct 44.9 H RDW 17.2 H Lymph % (Auto) 12.3 L [place] % (Auto) Lymph # (Auto) 1.0 L [place] # (Auto) Seg Neutrophils % 79.1 H Seg Neuts % (Manual) Lymphocytes % (Manual) Seg Neutrophils # Lymphocytes # (Manual) D-Dimer ABG pH ABG pO2 ABG HCO3 ABG O2 Saturation ABG Base Excess Sodium Potassium 2.8 L* D Chloride 87.6 L Carbon Dioxide 45 H* BUN Creatinine 0.2 L Glucose 46 L POC Glucose 360 H Calcium ALT NT-Pro-B Natriuret Pep Albumin Urine WBC (Auto) 09/08/21 09/08/21 09/08/21 05:25 05:53 11:50 Hct RDW Lymph % (Auto) [place] % (Auto) Lymph # (Auto) [place] # (Auto) Seg Neutrophils % Seg Neuts % (Manual) Lymphocytes % (Manual) Seg Neutrophils # Lymphocytes # (Manual) D-Dimer ABG pH ABG pO2 ABG HCO3 ABG O2 Saturation ABG Base Excess Sodium Potassium Chloride Carbon Dioxide BUN Creatinine Glucose POC Glucose 39 L 64 L 280 H Calcium ALT NT-Pro-B Natriuret Pep Albumin Urine WBC (Auto) 09/08/21 09/08/21 09/09/21 16:20 21:32 07:20 Hct RDW Lymph % (Auto) [place] % (Auto) Lymph # (Auto) [place] # (Auto) Seg Neutrophils % Seg Neuts % (Manual) Lymphocytes % (Manual) Seg Neutrophils # Lymphocytes # (Manual) D-Dimer ABG pH ABG pO2 ABG HCO3 ABG O2 Saturation ABG Base Excess Sodium Potassium Chloride Carbon Dioxide BUN Creatinine Glucose POC Glucose 256 H 203 H 194 H Calcium ALT NT-Pro-B Natriuret Pep Albumin Urine WBC (Auto) 09/09/21 09/09/21 09/09/21 07:50 11:13 16:20 Hct RDW Lymph % (Auto) [place] % (Auto) Lymph # (Auto) [place] # (Auto) Seg Neutrophils % Seg Neuts % (Manual) Lymphocytes % (Manual) Seg Neutrophils # Lymphocytes # (Manual) D-Dimer ABG pH ABG pO2 ABG HCO3 ABG O2 Saturation ABG Base Excess Sodium Potassium Chloride 88.8 L Carbon Dioxide 39 H BUN Creatinine < 0.2 L Glucose 197 H POC Glucose 258 H 231 H Calcium ALT NT-Pro-B Natriuret Pep Albumin Urine WBC (Auto) 09/09/21 09/10/21 09/10/21 22:17 07:00 08:02 Hct RDW Lymph % (Auto) [place] % (Auto) Lymph # (Auto) [place] # (Auto) Seg Neutrophils % Seg Neuts % (Manual) Lymphocytes % (Manual) Seg Neutrophils # Lymphocytes # (Manual) D-Dimer ABG pH ABG pO2 ABG HCO3 ABG O2 Saturation ABG Base Excess Sodium Potassium Chloride Carbon Dioxide BUN Creatinine Glucose POC Glucose 222 H 213 H Calcium ALT NT-Pro-B Natriuret Pep Albumin Urine WBC (Auto) 24.0 H 09/10/21 09/10/21 09/10/21 11:22 15:49 22:08 Hct RDW Lymph % (Auto) [place] % (Auto) Lymph # (Auto) [place] # (Auto) Seg Neutrophils % Seg Neuts % (Manual) Lymphocytes % (Manual) Seg Neutrophils # Lymphocytes # (Manual) D-Dimer ABG pH ABG pO2 ABG HCO3 ABG O2 Saturation ABG Base Excess Sodium Potassium Chloride Carbon Dioxide BUN Creatinine Glucose POC Glucose 241 H 201 H 212 H Calcium ALT NT-Pro-B Natriuret Pep Albumin Urine WBC (Auto) 09/11/21 09/11/21 09/11/21 08:01 11:21 16:41 Hct RDW Lymph % (Auto) [place] % (Auto) Lymph # (Auto) [place] # (Auto) Seg Neutrophils % Seg Neuts % (Manual) Lymphocytes % (Manual) Seg Neutrophils # Lymphocytes # (Manual) D-Dimer ABG pH ABG pO2 ABG HCO3 ABG O2 Saturation ABG Base Excess Sodium Potassium Chloride Carbon Dioxide BUN Creatinine Glucose POC Glucose 207 H 265 H 234 H Calcium ALT NT-Pro-B Natriuret Pep Albumin Urine WBC (Auto) 09/11/21 09/12/21 09/12/21 22:09 08:38 11:28 Hct RDW Lymph % (Auto) [place] % (Auto) Lymph # (Auto) [place] # (Auto) Seg Neutrophils % Seg Neuts % (Manual) Lymphocytes % (Manual) Seg Neutrophils # Lymphocytes # (Manual) D-Dimer ABG pH ABG pO2 ABG HCO3 ABG O2 Saturation ABG Base Excess Sodium Potassium Chloride Carbon Dioxide BUN Creatinine Glucose POC Glucose 293 H 222 H 326 H Calcium ALT NT-Pro-B Natriuret Pep Albumin Urine WBC (Auto) 09/12/21 09/12/21 09/13/21 16:25 21:45 07:41 Hct RDW Lymph % (Auto) [place] % (Auto) Lymph # (Auto) [place] # (Auto) Seg Neutrophils % Seg Neuts % (Manual) Lymphocytes % (Manual) Seg Neutrophils # Lymphocytes # (Manual) D-Dimer ABG pH ABG pO2 ABG HCO3 ABG O2 Saturation ABG Base Excess Sodium Potassium Chloride Carbon Dioxide BUN Creatinine Glucose POC Glucose 130 H 191 H 165 H Calcium ALT NT-Pro-B Natriuret Pep Albumin Urine WBC (Auto) 09/13/21 09/13/21 09/13/21 11:12 16:59 22:01 Hct RDW Lymph % (Auto) [place] % (Auto) Lymph # (Auto) [place] # (Auto) Seg Neutrophils % Seg Neuts % (Manual) Lymphocytes % (Manual) Seg Neutrophils # Lymphocytes # (Manual) D-Dimer ABG pH ABG pO2 ABG HCO3 ABG O2 Saturation ABG Base Excess Sodium Potassium Chloride Carbon Dioxide BUN Creatinine Glucose POC Glucose 263 H 162 H 276 H Calcium ALT NT-Pro-B Natriuret Pep Albumin Urine WBC (Auto) 09/14/21 09/14/21 09/14/21 08:12 12:28 16:30 Hct RDW Lymph % (Auto) [place] % (Auto) Lymph # (Auto) [place] # (Auto) Seg Neutrophils % Seg Neuts % (Manual) Lymphocytes % (Manual) Seg Neutrophils # Lymphocytes # (Manual) D-Dimer ABG pH ABG pO2 ABG HCO3 ABG O2 Saturation ABG Base Excess Sodium Potassium Chloride Carbon Dioxide BUN Creatinine Glucose POC Glucose 179 H 212 H 227 H Calcium ALT NT-Pro-B Natriuret Pep Albumin Urine WBC (Auto) 09/14/21 09/15/21 09/15/21 22:56 12:12 18:05 Hct RDW Lymph % (Auto) [place] % (Auto) Lymph # (Auto) [place] # (Auto) Seg Neutrophils % Seg Neuts % (Manual) Lymphocytes % (Manual) Seg Neutrophils # Lymphocytes # (Manual) D-Dimer ABG pH ABG pO2 ABG HCO3 ABG O2 Saturation ABG Base Excess Sodium Potassium Chloride Carbon Dioxide BUN Creatinine Glucose POC Glucose 275 H 297 H 247 H Calcium ALT NT-Pro-B Natriuret Pep Albumin Urine WBC (Auto) 09/15/21 09/16/21 09/16/21 22:21 07:51 11:22 Hct RDW Lymph % (Auto) [place] % (Auto) Lymph # (Auto) [place] # (Auto) Seg Neutrophils % Seg Neuts % (Manual) Lymphocytes % (Manual) Seg Neutrophils # Lymphocytes # (Manual) D-Dimer ABG pH ABG pO2 ABG HCO3 ABG O2 Saturation ABG Base Excess Sodium Potassium Chloride Carbon Dioxide BUN Creatinine Glucose POC Glucose 309 H 196 H 278 H Calcium ALT NT-Pro-B Natriuret Pep Albumin Urine WBC (Auto) 09/16/21 09/16/21 09/17/21 16:10 21:56 07:45 Hct RDW Lymph % (Auto) [place] % (Auto) Lymph # (Auto) [place] # (Auto) Seg Neutrophils % Seg Neuts % (Manual) Lymphocytes % (Manual) Seg Neutrophils # Lymphocytes # (Manual) D-Dimer ABG pH ABG pO2 ABG HCO3 ABG O2 Saturation ABG Base Excess Sodium Potassium Chloride Carbon Dioxide BUN Creatinine Glucose POC Glucose 264 H 246 H 174 H Calcium ALT NT-Pro-B Natriuret Pep Albumin Urine WBC (Auto) 09/17/21 09/17/21 09/17/21 11:25 15:43 21:19 Hct RDW Lymph % (Auto) [place] % (Auto) Lymph # (Auto) [place] # (Auto) Seg Neutrophils % Seg Neuts % (Manual) Lymphocytes % (Manual) Seg Neutrophils # Lymphocytes # (Manual) D-Dimer ABG pH ABG pO2 ABG HCO3 ABG O2 Saturation ABG Base Excess Sodium Potassium Chloride Carbon Dioxide BUN Creatinine Glucose POC Glucose 275 H 242 H 255 H Calcium ALT NT-Pro-B Natriuret Pep Albumin Urine WBC (Auto) 09/18/21 09/18/21 09/18/21 08:00 11:50 17:30 Hct RDW Lymph % (Auto) [place] % (Auto) Lymph # (Auto) [place] # (Auto) Seg Neutrophils % Seg Neuts % (Manual) Lymphocytes % (Manual) Seg Neutrophils # Lymphocytes # (Manual) D-Dimer ABG pH ABG pO2 ABG HCO3 ABG O2 Saturation ABG Base Excess Sodium Potassium Chloride Carbon Dioxide BUN Creatinine Glucose POC Glucose 170 H 244 H 218 H Calcium ALT NT-Pro-B Natriuret Pep Albumin Urine WBC (Auto) 09/18/21 09/19/21 09/19/21 22:32 12:20 14:00 Hct RDW 18.6 H Lymph % (Auto) [place] % (Auto) Lymph # (Auto) [place] # (Auto) Seg Neutrophils % Seg Neuts % (Manual) Lymphocytes % (Manual) Seg Neutrophils # Lymphocytes # (Manual) D-Dimer ABG pH ABG pO2 ABG HCO3 ABG O2 Saturation ABG Base Excess Sodium Potassium Chloride Carbon Dioxide BUN Creatinine Glucose POC Glucose 295 H 220 H Calcium ALT NT-Pro-B Natriuret Pep Albumin Urine WBC (Auto) 09/19/21 09/19/21 09/19/21 14:00 18:32 21:19 Hct RDW Lymph % (Auto) [place] % (Auto) Lymph # (Auto) [place] # (Auto) Seg Neutrophils % Seg Neuts % (Manual) Lymphocytes % (Manual) Seg Neutrophils # Lymphocytes # (Manual) D-Dimer ABG pH ABG pO2 ABG HCO3 ABG O2 Saturation ABG Base Excess Sodium 136 L Potassium 5.7 H Chloride 92.1 L Carbon Dioxide 37 H BUN 21 H Creatinine 0.2 L Glucose 230 H POC Glucose 173 H 190 H Calcium ALT NT-Pro-B Natriuret Pep Albumin Urine WBC (Auto) 09/20/21 09/20/21 09/20/21 04:32 07:57 11:06 Hct RDW Lymph % (Auto) [place] % (Auto) Lymph # (Auto) [place] # (Auto) Seg Neutrophils % Seg Neuts % (Manual) Lymphocytes % (Manual) Seg Neutrophils # Lymphocytes # (Manual) D-Dimer ABG pH ABG pO2 ABG HCO3 ABG O2 Saturation ABG Base Excess Sodium 135 L Potassium Chloride 92.3 L Carbon Dioxide 33 H BUN 18 H Creatinine 0.2 L Glucose 264 H POC Glucose 237 H 232 H Calcium ALT NT-Pro-B Natriuret Pep Albumin Urine WBC (Auto) 09/20/21 09/20/21 09/21/21 15:19 20:04 07:24 Hct RDW Lymph % (Auto) [place] % (Auto) Lymph # (Auto) [place] # (Auto) Seg Neutrophils % Seg Neuts % (Manual) Lymphocytes % (Manual) Seg Neutrophils # Lymphocytes # (Manual) D-Dimer ABG pH ABG pO2 ABG HCO3 ABG O2 Saturation ABG Base Excess Sodium Potassium Chloride Carbon Dioxide BUN Creatinine Glucose POC Glucose 195 H 209 H 58 L Calcium ALT NT-Pro-B Natriuret Pep Albumin Urine WBC (Auto)
[2021-09-21] MEDS: FAMOTIDINE 20 MG TAB PO SCH ×2 (10:44→21:40)
[2021-09-21] MEDS ORDERED: HYDROCORTISONE 1% CREAM 28.4GM TP PRN (15:00)
--- NOTE | 2021-09-21 15:33 | XRay Report ---
CHEST 1 VIEW 09/21/2021 3:07 PM INDICATION / CLINICAL INFORMATION: Shortness of breath. COMPARISON: 09/09/21. FINDINGS: SUPPORT DEVICES: None. HEART / MEDIASTINUM: Cardiomegaly is stable. LUNGS / PLEURA: There are moderate patchy parenchymal opacities throughout both lungs, more prominent peripherally. Disease is unchanged to slightly increased. No pleural effusion. No pneumothorax. ADDITIONAL FINDINGS: No significant additional findings. IMPRESSION: Moderate bilateral parenchymal opacities are unchanged to slightly increased compared to 09/09/21. Signer Name: Raymond Parsons MD Signed: 09/21/2021 3:28 PM Workstation Name: [id number]
--- NOTE | 2021-09-21 16:30 | Progress Note ---
Assessment and Plan 50-year-old female patient was admitted with COVID-19 pneumonia severe hypoxic hypercapnic respiratory failure had a prolonged stay in the hospital for 3 to 4 months and was discharged on 08/28/2021 on home oxygen and long-term st eroids and other supportive care, patient again was admitted on the stabilized and discharged on the . patient already has home oxygen and all the medications are needed. Patient readmitted 09/01/21 with acute hypoxic respiratory failure and altered level of consciousness, s/p BiPAP, chest x-ray gaseous distention of the stomach. Pulmonary following, patient also has generalized anxiety on Xanax. 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 Gomes PCR test is negative Severe hypoxic and hypercapnic respiratory failure, required BiPAP on admission Patient was on 10 L of nasal cannula oxygen/100% nonrebreather/BiPAP, currently on high flow O2 X-ray chest show moderate gaseous distention of the stomach severe diffuse bilateral chronic parenchymal opacities that have not changed chest x-ray Patient was recently discharged on on home 3 L oxygen CTA chest; no CT evidence of PE, diffuse severe bilateral mixed interstitial and alveolar opacities CT head without contrast; there is 2 small 2 to 3 mm focus of calcification along the lateral left frontal lobe which appears to be incidental, Patient is receiving currently high-dose Solu-Medrol therapy, per pulmonary --Abdominal distention with ileus Pulmonary recommended NG tube placement with intermittent suction for gastric distention Repeat abdomen x-ray 09/03 showed no gaseous distention, now tolerating diet -- IDDM (insulin dependent diabetes mellitus) Continue home insulin and coverage Follow hemoglobin A1c, SSI as needed --[place] (generalized anxiety disorder) Continue Xanax as necessary --Hypokalemia, repleted --hyperkalemia, s/p kayexalate --Uncontrolled blood sugars probably secondary to steroids, increase Lantus to 15 units subcu daily --Sepsis secondary to UTI/E. coli Completed treatment with Levaquin --DVT prophylaxis On Lovenox and GI prophylaxis Daily clinical course: 09/01/2021; on intermittent BiPAP, chest x-ray gaseous distention of stomach recommend, NG tube placement intermittent suction and supportive care Disposition monitor closely wean will oxygen;, 2 -4 to 5 L nasal cannula, and discharge when stable. Patient already has home oxygen 09/02: Remains hypoxic and hypercapnic, somnolent post Ativan, on high flow O2 30 to 40 L, high-dose Solu-Medrol and NG tube for gastric distention. wean FiO2 as tolerated and BiPAP as needed for the hypercapnia, recheck ABG. Discussed with the pulmonary and nursing staff. 09/03: Off BiPAP this morning, continue to follow serum glucose, patient on high-dose steroid, continue high flow O2 and wean off as tolerated. Repeat abdominal x-ray showed non significant normal bowel gas pattern. Will initiate on clear liquid diet, will monitor off NG tube. 09/04; continue to follow clinically, empiric steroid, wean off O2 as tolerated, patient remains on high flow O2. Will advance diet as tolerated. Continue to monitor serum blood glucose and adjust insulin doses accordingly. 09/05: Follow clinically, consistent carb diet, high-dose empiric steroid, wean off O2 as tolerated. Transfer out of intermediate care to [facility] with telemetry. 09/06: Remains on high flow O2 25 L, continue to provide supportive care, wean off O2 as tolerated, adjust serum blood glucose with insulin, tolerating consistent carb diet. 09/07/21: Continue to replete electrolytes and monitor. Wean off O2 as tolerated, guarded prognosis, continue empiric steroid. Follow clinically. 09/08/21; continue to replete and monitor potassium, wean off O2 as tolerated. Patient remains on 25 L high flow O2. Continue empiric steroid, follow clinically. 09/09/21; spiking temp, will order pancultures, repeat chest x-ray, guarded p rognosis, remains on 25 L high flow O2, follow clinically 09/10; patient is afebrile, remains on high flow 25 L nasal cannula oxygen, wean as tolerated, patient already has home oxygen Wean aggressively as tolerated, if no improvement consider hospice 09/11; patient's urine cultures positive for gram-negative rods, will add Levaquin 750 mg IV daily, follow culture sensitivities and adjust as needed Patient is anxious, has intermittent panic episodes, continue Xanax, consult psych 09/12; urine cultures positive for E. coli, sensitivities include Levaquin, remains on high flow nasal cannula oxygen, wean as tolerated Consults and recommendations noted and appreciated 09/13; sepsis due to UTI E. coli, remains on high flow nasal cannula oxygen, wean as tolerated, psych evaluation noted no new recommendations 09/14/21: On HFNC 20 L/35% FiO2/95 O2 sats, wean as tolerated, continue current ma nagement 09/15/21; remains an HFNC oxygen, chronically ill looking. Consider LTAC placement, social issues 09/16/2021; on 30 L HFNC O2, wean as tolerated 09/17/2021; remains on HFNC 30 L/35% FiO2/94 O2 sats, steroids reduced to 40 mg every 8 hours, follow pulmonary recommendations Unable to consider LTAC, as patient is undocumented and no resources, DC planning per case management when stable 09/18/21; remains on 30 L high flow O2, director of casework department working on LTAC versus hospice placement. Continue to provide supportive care 09/19/21: Remains on high flow O2, potassium 5.7 today -ordered for Kayexalate. Will monitor BMP. Patient remains on high flow O2. Pending placement. 09/20/21: Remains on high flow O2, continue to monitor BMP. Multiple social issues, unable to find placement. Continue supportive care and wean off O2 as tolerated. Potassium 4.9 today. 09/21/21: unable to find placement. Continue supportive care and wean off O2 as tolerated. Remains on high flow O2. Subjective Date of service: 09/21/21 Interval history: Patient seen and examined. Medical records and medication list reviewed. No acute event overnight noted by the RN. Patient on high flow O2, tolerating diet, Discussed plan of care at bedside with patient's RN and CM . Objective - Exam Narrative Exam: GENERAL: well-developed and well-nourished female lying on bed appeared to be in moderate discomfort. HEENT: Normocephalic. Atraumatic. No conjunctival congestion or icterus. Patient has moist mucous membranes. NECK: Supple. Trachea midline. CHEST/LUNGS: Diminished breath sound bilaterally. No wheezes crackles or rhonchi. Patient on high flow O2 HEART/CARDIOVASCULAR: Regular in rate and rhythm. S1 and S2 positive. ABDOMEN: Abdomen is soft, nontender. Patient has normal bowel sounds. SKIN: There is no rash. Warm and dry. NEURO: No focal motor deficit. Follows command. MUSCULOSKELETAL: No joint effusion or tenderness. EXTRIMITY: No edema, no cyanosis or clubbing. PSYCH: Cooperative but appears anxious. - Constitutional Vitals: Vital Signs - 12hr 09/21/21 09/21/21 09/21/21 07:26 08:55 10:00 Temperature 98.4 F Pulse Rate 93 H 94 H Respiratory 16 Rate Blood Pressure 124/81 O2 Sat by Pulse 99 96 94 Oximetry 09/21/21 11:43 Temperature 98.2 F Pulse Rate 110 H Respiratory 16 Rate Blood Pressure 136/84 O2 Sat by Pulse 96 Oximetry - Labs CBC & Chem 7: 09/19/21 14:00 09/20/21 04:32 Labs: Abnormal lab results 09/20/21 09/21/21 09/21/21 Range/Units 20:04 07:24 11:42 POC Glucose 209 H 58 L 137 H (70-105) mg/dL 09/21/21 Range/Units 15:48 POC Glucose 192 H (70-105) mg/dL
[2021-09-21] MEDS: INSULIN GLARGINE 100 UNITS/ML SUB-Q SCH (21:38)
[2021-09-21] MEDS: ALPRAZolam 1 MG TAB PO PRN (21:40)
[2021-09-21] MEDS: cloNIDine TTS 0.2 MG/24 HR PATCH TD SCH (21:40)
[2021-09-21] MEDS: ACETAMINOPHEN 325 MG TAB PO PRN (21:48)
[2021-09-22] MEDS: HEPARIN 5,000 UNIT/1 ML VIAL SUB-Q SCH ×3 (05:59→22:29)
[2021-09-22] MEDS: methylPREDNISolone Sod Succinate 40 MG/1 ML INJ IV SCH ×3 (06:01→22:29)
[2021-09-22] MEDS: ALPRAZolam 1 MG TAB PO PRN ×2 (08:55→22:27)
[2021-09-22] MEDS: INSULIN LISPRO 100 UNIT/ML SUB-Q SCH ×4 (08:55→22:28)
[2021-09-22] MEDS: FAMOTIDINE 20 MG TAB PO SCH ×2 (08:59→22:27)
--- NOTE | 2021-09-22 09:24 | Progress Note ---
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 Current Visit: No Status: Acute (6) Respiratory failure with hypoxia and hypercapnia Current Visit: No Status: Acute Qualifiers: Chronicity: acute Qualified Code(s): J96.01 - Acute respiratory failure with hypoxia; J96.02 - Acute respiratory failure with hypercapnia Subjective Interval history: awake Objective Vital Signs - 12hr 09/21/21 09/21/21 09/22/21 21:40 23:53 02:51 Temperature 95.7 F L Pulse Rate 104 H 80 Respiratory 18 Rate Blood Pressure 124/76 119/76 O2 Sat by Pulse 98 100 Oximetry 09/22/21 07:33 Temperature 98.4 F Pulse Rate 88 Respiratory 16 Rate Blood Pressure 151/79 O2 Sat by Pulse 98 Oximetry Constitutional: no acute distress ENT: oropharynx moist Neck: supple Ascultation: Bilateral: diminished breath sounds Cardiovascular: regular rate and rhythm Gastrointestinal: normoactive bowel sounds, soft, non-tender Integumentary: normal Extremities: no cyanosis Neurologic: normal mental status CBC and BMP: 09/19/21 14:00 09/20/21 04:32 ABG, PT/INR, D-dimer: ABG ABG pH 7.240 pH Units (7.350-7.450) L 09/01/21 23:56 ABG pCO2 111.3 mm Hg 09/01/21 23:56 ABG pO2 198.0 mm Hg (80.0-90.0) H 09/01/21 23:56 ABG O2 Saturation 99.0 % (95.0-99.0) 09/01/21 23:56 PT/INR, D-dimer D-Dimer 710.59 ng/mlDDU (0-234) H 08/31/21 19:32 Abnormal lab findings: Abnormal Labs 08/31/21 08/31/21 08/31/21 19:32 19:32 19:32 Hct RDW 16.4 H Lymph % (Auto) [place] % (Auto) 9.0 H Lymph # (Auto) [place] # (Auto) 1.0 H Seg Neutrophils % 76.2 H Seg Neuts % (Manual) Lymphocytes % (Manual) Seg Neutrophils # 8.3 H Lymphocytes # (Manual) D-Dimer 710.59 H ABG pH ABG pO2 ABG HCO3 ABG O2 Saturation ABG Base Excess Sodium Potassium Chloride 92.7 L Carbon Dioxide 36 H BUN Creatinine 0.4 L D Glucose 249 H POC Glucose Calcium ALT NT-Pro-B Natriuret Pep Albumin Urine WBC (Auto) 08/31/21 08/31/21 09/01/21 19:32 21:05 09:24 Hct RDW Lymph % (Auto) [place] % (Auto) Lymph # (Auto) [place] # (Auto) Seg Neutrophils % Seg Neuts % (Manual) Lymphocytes % (Manual) Seg Neutrophils # Lymphocytes # (Manual) D-Dimer ABG pH 7.244 L ABG pO2 307.7 H ABG HCO3 47.9 H ABG O2 Saturation 99.4 H ABG Base Excess 16.0 H Sodium Potassium Chloride Carbon Dioxide BUN Creatinine Glucose POC Glucose 106 H Calcium ALT NT-Pro-B Natriuret Pep 524.1 H Albumin Urine WBC (Auto) 09/01/21 09/01/21 09/01/21 13:39 16:22 23:56 Hct RDW Lymph % (Auto) [place] % (Auto) Lymph # (Auto) [place] # (Auto) Seg Neutrophils % Seg Neuts % (Manual) Lymphocytes % (Manual) Seg Neutrophils # Lymphocytes # (Manual) D-Dimer ABG pH 7.240 L ABG pO2 198.0 H ABG HCO3 46.6 H ABG O2 Saturation ABG Base Excess 14.8 H Sodium Potassium Chloride Carbon Dioxide BUN Creatinine Glucose POC Glucose 154 H 188 H Calcium ALT NT-Pro-B Natriuret Pep Albumin Urine WBC (Auto) 09/02/21 09/02/21 09/02/21 01:49 07:22 07:22 Hct RDW 16.4 H Lymph % (Auto) [place] % (Auto) Lymph # (Auto) [place] # (Auto) Seg Neutrophils % Seg Neuts % (Manual) 97.0 H Lymphocytes % (Manual) 2.0 L Seg Neutrophils # Lymphocytes # (Manual) 0.1 L D-Dimer ABG pH ABG pO2 ABG HCO3 ABG O2 Saturation ABG Base Excess Sodium Potassium Chloride 82.7 L Carbon Dioxide 41 H* BUN 21 H Creatinine 0.3 L Glucose 198 H POC Glucose 132 H Calcium ALT NT-Pro-B Natriuret Pep Albumin Urine WBC (Auto) 09/02/21 09/02/21 09/02/21 08:29 11:27 16:59 Hct RDW Lymph % (Auto) [place] % (Auto) Lymph # (Auto) [place] # (Auto) Seg Neutrophils % Seg Neuts % (Manual) Lymphocytes % (Manual) Seg Neutrophils # Lymphocytes # (Manual) D-Dimer ABG pH ABG pO2 ABG HCO3 ABG O2 Saturation ABG Base Excess Sodium Potassium Chloride Carbon Dioxide BUN Creatinine Glucose POC Glucose 201 H 232 H 118 H Calcium ALT NT-Pro-B Natriuret Pep Albumin Urine WBC (Auto) 09/02/21 09/03/21 09/03/21 22:08 06:05 06:05 Hct RDW 16.5 H Lymph % (Auto) [place] % (Auto) Lymph # (Auto) [place] # (Auto) Seg Neutrophils % Seg Neuts % (Manual) 94.0 H Lymphocytes % (Manual) 3.0 L Seg Neutrophils # Lymphocytes # (Manual) 0.2 L D-Dimer ABG pH ABG pO2 ABG HCO3 ABG O2 Saturation ABG Base Excess Sodium Potassium Chloride 79.3 L Carbon Dioxide 52 H* D BUN 27 H Creatinine 0.2 L Glucose 228 H POC Glucose 241 H Calcium 10.4 H ALT 71 H NT-Pro-B Natriuret Pep Albumin 3.8 L Urine WBC (Auto) 09/03/21 09/03/21 09/03/21 07:53 11:37 15:52 Hct RDW Lymph % (Auto) [place] % (Auto) Lymph # (Auto) [place] # (Auto) Seg Neutrophils % Seg Neuts % (Manual) Lymphocytes % (Manual) Seg Neutrophils # Lymphocytes # (Manual) D-Dimer ABG pH ABG pO2 ABG HCO3 ABG O2 Saturation ABG Base Excess Sodium Potassium Chloride Carbon Dioxide BUN Creatinine Glucose POC Glucose 241 H 202 H 284 H Calcium ALT NT-Pro-B Natriuret Pep Albumin Urine WBC (Auto) 09/03/21 09/04/21 09/04/21 22:07 08:33 11:16 Hct RDW Lymph % (Auto) [place] % (Auto) Lymph # (Auto) [place] # (Auto) Seg Neutrophils % Seg Neuts % (Manual) Lymphocytes % (Manual) Seg Neutrophils # Lymphocytes # (Manual) D-Dimer ABG pH ABG pO2 ABG HCO3 ABG O2 Saturation ABG Base Excess Sodium Potassium Chloride Carbon Dioxide BUN Creatinine Glucose POC Glucose 311 H 232 H 356 H Calcium ALT NT-Pro-B Natriuret Pep Albumin Urine WBC (Auto) 09/04/21 09/04/21 09/05/21 17:10 23:05 08:08 Hct RDW Lymph % (Auto) [place] % (Auto) Lymph # (Auto) [place] # (Auto) Seg Neutrophils % Seg Neuts % (Manual) Lymphocytes % (Manual) Seg Neutrophils # Lymphocytes # (Manual) D-Dimer ABG pH ABG pO2 ABG HCO3 ABG O2 Saturation ABG Base Excess Sodium Potassium Chloride Carbon Dioxide BUN Creatinine Glucose POC Glucose 328 H 150 H 342 H Calcium ALT NT-Pro-B Natriuret Pep Albumin Urine WBC (Auto) 09/05/21 09/05/21 09/05/21 11:04 13:23 13:23 Hct RDW 17.1 H Lymph % (Auto) [place] % (Auto) Lymph # (Auto) [place] # (Auto) Seg Neutrophils % Seg Neuts % (Manual) Lymphocytes % (Manual) Seg Neutrophils # Lymphocytes # (Manual) D-Dimer ABG pH ABG pO2 ABG HCO3 ABG O2 Saturation ABG Base Excess Sodium Potassium 2.6 L* D Chloride 74.4 L Carbon Dioxide 46 H* BUN Creatinine 0.3 L Glucose 389 H POC Glucose 395 H Calcium ALT NT-Pro-B Natriuret Pep Albumin Urine WBC (Auto) 09/05/21 09/05/21 09/06/21 16:22 21:09 08:02 Hct RDW Lymph % (Auto) [place] % (Auto) Lymph # (Auto) [place] # (Auto) Seg Neutrophils % Seg Neuts % (Manual) Lymphocytes % (Manual) Seg Neutrophils # Lymphocytes # (Manual) D-Dimer ABG pH ABG pO2 ABG HCO3 ABG O2 Saturation ABG Base Excess Sodium Potassium Chloride Carbon Dioxide BUN Creatinine Glucose POC Glucose 195 H 243 H 119 H Calcium ALT NT-Pro-B Natriuret Pep Albumin Urine WBC (Auto) 09/06/21 09/06/21 09/06/21 11:00 11:19 16:06 Hct RDW Lymph % (Auto) [place] % (Auto) Lymph # (Auto) [place] # (Auto) Seg Neutrophils % Seg Neuts % (Manual) Lymphocytes % (Manual) Seg Neutrophils # Lymphocytes # (Manual) D-Dimer ABG pH ABG pO2 ABG HCO3 ABG O2 Saturation ABG Base Excess Sodium 136 L Potassium Chloride 78.3 L Carbon Dioxide 47 H* BUN Creatinine 0.3 L Glucose 354 H POC Glucose 309 H 381 H Calcium ALT NT-Pro-B Natriuret Pep Albumin Urine WBC (Auto) 09/06/21 09/07/21 09/07/21 22:25 11:11 16:50 Hct RDW Lymph % (Auto) [place] % (Auto) Lymph # (Auto) [place] # (Auto) Seg Neutrophils % Seg Neuts % (Manual) Lymphocytes % (Manual) Seg Neutrophils # Lymphocytes # (Manual) D-Dimer ABG pH ABG pO2 ABG HCO3 ABG O2 Saturation ABG Base Excess Sodium Potassium Chloride Carbon Dioxide BUN Creatinine Glucose POC Glucose 217 H 442 H 222 H Calcium ALT NT-Pro-B Natriuret Pep Albumin Urine WBC (Auto) 09/07/21 09/08/21 09/08/21 21:52 04:31 04:31 Hct 44.9 H RDW 17.2 H Lymph % (Auto) 12.3 L [place] % (Auto) Lymph # (Auto) 1.0 L [place] # (Auto) Seg Neutrophils % 79.1 H Seg Neuts % (Manual) Lymphocytes % (Manual) Seg Neutrophils # Lymphocytes # (Manual) D-Dimer ABG pH ABG pO2 ABG HCO3 ABG O2 Saturation ABG Base Excess Sodium Potassium 2.8 L* D Chloride 87.6 L Carbon Dioxide 45 H* BUN Creatinine 0.2 L Glucose 46 L POC Glucose 360 H Calcium ALT NT-Pro-B Natriuret Pep Albumin Urine WBC (Auto) 09/08/21 09/08/21 09/08/21 05:25 05:53 11:50 Hct RDW Lymph % (Auto) [place] % (Auto) Lymph # (Auto) [place] # (Auto) Seg Neutrophils % Seg Neuts % (Manual) Lymphocytes % (Manual) Seg Neutrophils # Lymphocytes # (Manual) D-Dimer ABG pH ABG pO2 ABG HCO3 ABG O2 Saturation ABG Base Excess Sodium Potassium Chloride Carbon Dioxide BUN Creatinine Glucose POC Glucose 39 L 64 L 280 H Calcium ALT NT-Pro-B Natriuret Pep Albumin Urine WBC (Auto) 09/08/21 09/08/2109/09/21 16:20 21:32 07:20 Hct RDW Lymph % (Auto) [place] % (Auto) Lymph # (Auto) [place] # (Auto) Seg Neutrophils % Seg Neuts % (Manual) Lymphocytes % (Manual) Seg Neutrophils # Lymphocytes # (Manual) D-Dimer ABG pH ABG pO2 ABG HCO3 ABG O2 Saturation ABG Base Excess Sodium Potassium Chloride Carbon Dioxide BUN Creatinine Glucose POC Glucose 256 H 203 H 194 H Calcium ALT NT-Pro-B Natriuret Pep Albumin Urine WBC (Auto) 09/09/21 09/09/21 09/09/21 07:50 11:13 16:20 Hct RDW Lymph % (Auto) [place] % (Auto) Lymph # (Auto) [place] # (Auto) Seg Neutrophils % Seg Neuts % (Manual) Lymphocytes % (Manual) Seg Neutrophils # Lymphocytes # (Manual) D-Dimer ABG pH ABG pO2 ABG HCO3 ABG O2 Saturation ABG Base Excess Sodium Potassium Chloride 88.8 L Carbon Dioxide 39 H BUN Creatinine < 0.2 L Glucose 197 H POC Glucose 258 H 231 H Calcium ALT NT-Pro-B Natriuret Pep Albumin Urine WBC (Auto) 09/09/21 09/10/21 09/10/21 22:17 07:00 08:02 Hct RDW Lymph % (Auto) [place] % (Auto) Lymph # (Auto) [place] # (Auto) Seg Neutrophils % Seg Neuts % (Manual) Lymphocytes % (Manual) Seg Neutrophils # Lymphocytes # (Manual) D-Dimer ABG pH ABG pO2 ABG HCO3 ABG O2 Saturation ABG Base Excess Sodium Potassium Chloride Carbon Dioxide BUN Creatinine Glucose POC Glucose 222 H 213 H Calcium ALT NT-Pro-B Natriuret Pep Albumin Urine WBC (Auto) 24.0 H 09/10/21 09/10/21 09/10/21 11:22 15:49 22:08 Hct RDW Lymph % (Auto) [place] % (Auto) Lymph # (Auto) [place] # (Auto) Seg Neutrophils % Seg Neuts % (Manual) Lymphocytes % (Manual) Seg Neutrophils # Lymphocytes # (Manual) D-Dimer ABG pH ABG pO2 ABG HCO3 ABG O2 Saturation ABG Base Excess Sodium Potassium Chloride Carbon Dioxide BUN Creatinine Glucose POC Glucose 241 H 201 H 212 H Calcium ALT NT-Pro-B Natriuret Pep Albumin Urine WBC (Auto) 09/11/21 09/11/21 09/11/21 08:01 11:21 16:41 Hct RDW Lymph % (Auto) [place] % (Auto) Lymph # (Auto) [place] # (Auto) Seg Neutrophils % Seg Neuts % (Manual) Lymphocytes % (Manual) Seg Neutrophils # Lymphocytes # (Manual) D-Dimer ABG pH ABG pO2 ABG HCO3 ABG O2 Saturation ABG Base Excess Sodium Potassium Chloride Carbon Dioxide BUN Creatinine Glucose POC Glucose 207 H 265 H 234 H Calcium ALT NT-Pro-B Natriuret Pep Albumin Urine WBC (Auto) 09/11/21 09/12/21 09/12/21 22:09 08:38 11:28 Hct RDW Lymph % (Auto) [place] % (Auto) Lymph # (Auto) [place] # (Auto) Seg Neutrophils % Seg Neuts % (Manual) Lymphocytes % (Manual) Seg Neutrophils # Lymphocytes # (Manual) D-Dimer ABG pH ABG pO2 ABG HCO3 ABG O2 Saturation ABG Base Excess Sodium Potassium Chloride Carbon Dioxide BUN Creatinine Glucose POC Glucose 293 H 222 H 326 H Calcium ALT NT-Pro-B Natriuret Pep Albumin Urine WBC (Auto) 09/12/21 09/12/21 09/13/21 16:25 21:45 07:41 Hct RDW Lymph % (Auto) [place] % (Auto) Lymph # (Auto) [place] # (Auto) Seg Neutrophils % Seg Neuts % (Manual) Lymphocytes % (Manual) Seg Neutrophils # Lymphocytes # (Manual) D-Dimer ABG pH ABG pO2 ABG HCO3 ABG O2 Saturation ABG Base Excess Sodium Potassium Chloride Carbon Dioxide BUN Creatinine Glucose POC Glucose 130 H 191 H 165 H Calcium ALT NT-Pro-B Natriuret Pep Albumin Urine WBC (Auto) 09/13/21 09/13/21 09/13/21 11:12 16:59 22:01 Hct RDW Lymph % (Auto) [place] % (Auto) Lymph # (Auto) [place] # (Auto) Seg Neutrophils % Seg Neuts % (Manual) Lymphocytes % (Manual) Seg Neutrophils # Lymphocytes # (Manual) D-Dimer ABG pH ABG pO2 ABG HCO3 ABG O2 Saturation ABG Base Excess Sodium Potassium Chloride Carbon Dioxide BUN Creatinine Glucose POC Glucose 263 H 162 H 276 H Calcium ALT NT-Pro-B Natriuret Pep Albumin Urine WBC (Auto) 09/14/21 09/14/21 09/14/21 08:12 12:28 16:30 Hct RDW Lymph % (Auto) [place] % (Auto) Lymph # (Auto) [place] # (Auto) Seg Neutrophils % Seg Neuts % (Manual) Lymphocytes % (Manual) Seg Neutrophils # Lymphocytes # (Manual) D-Dimer ABG pH ABG pO2 ABG HCO3 ABG O2 Saturation ABG Base Excess Sodium Potassium Chloride Carbon Dioxide BUN Creatinine Glucose POC Glucose 179 H 212 H 227 H Calcium ALT NT-Pro-B Natriuret Pep Albumin Urine WBC (Auto) 09/14/21 09/15/21 09/15/21 22:56 12:12 18:05 Hct RDW Lymph % (Auto) [place] % (Auto) Lymph # (Auto) [place] # (Auto) Seg Neutrophils % Seg Neuts % (Manual) Lymphocytes % (Manual) Seg Neutrophils # Lymphocytes # (Manual) D-Dimer ABG pH ABG pO2 ABG HCO3 ABG O2 Saturation ABG Base Excess Sodium Potassium Chloride Carbon Dioxide BUN Creatinine Glucose POC Glucose 275 H 297 H 247 H Calcium ALT NT-Pro-B Natriuret Pep Albumin Urine WBC (Auto) 09/15/21 09/16/21 09/16/21 22:21 07:51 11:22 Hct RDW Lymph % (Auto) [place] % (Auto) Lymph # (Auto) [place] # (Auto) Seg Neutrophils % Seg Neuts % (Manual) Lymphocytes % (Manual) Seg Neutrophils # Lymphocytes # (Manual) D-Dimer ABG pH ABG pO2 ABG HCO3 ABG O2 Saturation ABG Base Excess Sodium Potassium Chloride Carbon Dioxide BUN Creatinine Glucose POC Glucose 309 H 196 H 278 H Calcium ALT NT-Pro-B Natriuret Pep Albumin Urine WBC (Auto) 09/16/21 09/16/21 09/17/21 16:10 21:56 07:45 Hct RDW Lymph % (Auto) [place] % (Auto) Lymph # (Auto) [place] # (Auto) Seg Neutrophils % Seg Neuts % (Manual) Lymphocytes % (Manual) Seg Neutrophils # Lymphocytes # (Manual) D-Dimer ABG pH ABG pO2 ABG HCO3 ABG O2 Saturation ABG Base Excess Sodium Potassium Chloride Carbon Dioxide BUN Creatinine Glucose POC Glucose 264 H 246 H 174 H Calcium ALT NT-Pro-B Natriuret Pep Albumin Urine WBC (Auto) 09/17/21 09/17/21 09/17/21 11:25 15:43 21:19 Hct RDW Lymph % (Auto) [place] % (Auto) Lymph # (Auto) [place] # (Auto) Seg Neutrophils % Seg Neuts % (Manual) Lymphocytes % (Manual) Seg Neutrophils # Lymphocytes # (Manual) D-Dimer ABG pH ABG pO2 ABG HCO3 ABG O2 Saturation ABG Base Excess Sodium Potassium Chloride Carbon Dioxide BUN Creatinine Glucose POC Glucose 275 H 242 H 255 H Calcium ALT NT-Pro-B Natriuret Pep Albumin Urine WBC (Auto) 09/18/21 09/18/21 09/18/21 08:00 11:50 17:30 Hct RDW Lymph % (Auto) [place] % (Auto) Lymph # (Auto) [place] # (Auto) Seg Neutrophils % Seg Neuts % (Manual) Lymphocytes % (Manual) Seg Neutrophils # Lymphocytes # (Manual) D-Dimer ABG pH ABG pO2 ABG HCO3 ABG O2 Saturation ABG Base Excess Sodium Potassium Chloride Carbon Dioxide BUN Creatinine Glucose POC Glucose 170 H 244 H 218 H Calcium ALT NT-Pro-B Natriuret Pep Albumin Urine WBC (Auto) 09/18/21 09/19/21 09/19/21 22:32 12:20 14:00 Hct RDW 18.6 H Lymph % (Auto) [place] % (Auto) Lymph # (Auto) [place] # (Auto) Seg Neutrophils % Seg Neuts % (Manual) Lymphocytes % (Manual) Seg Neutrophils # Lymphocytes # (Manual) D-Dimer ABG pH ABG pO2 ABG HCO3 ABG O2 Saturation ABG Base Excess Sodium Potassium Chloride Carbon Dioxide BUN Creatinine Glucose POC Glucose 295 H 220 H Calcium ALT NT-Pro-B Natriuret Pep Albumin Urine WBC (Auto) 09/19/21 09/19/21 09/19/21 14:00 18:32 21:19 Hct RDW Lymph % (Auto) [place] % (Auto) Lymph # (Auto) [place] # (Auto) Seg Neutrophils % Seg Neuts % (Manual) Lymphocytes % (Manual) Seg Neutrophils # Lymphocytes # (Manual) D-Dimer ABG pH ABG pO2 ABG HCO3 ABG O2 Saturation ABG Base Excess Sodium 136 L Potassium 5.7 H Chloride 92.1 L Carbon Dioxide 37 H BUN 21 H Creatinine 0.2 L Glucose 230 H POC Glucose 173 H 190 H Calcium ALT NT-Pro-B Natriuret Pep Albumin Urine WBC (Auto) 01/04/0409/20/21 09/20/21 04:32 07:57 11:06 Hct RDW Lymph % (Auto) [place] % (Auto) Lymph # (Auto) [place] # (Auto) Seg Neutrophils % Seg Neuts % (Manual) Lymphocytes % (Manual) Seg Neutrophils # Lymphocytes # (Manual) D-Dimer ABG pH ABG pO2 ABG HCO3 ABG O2 Saturation ABG Base Excess Sodium 135 L Potassium Chloride 92.3 L Carbon Dioxide 33 H BUN 18 H Creatinine 0.2 L Glucose 264 H POC Glucose 237 H 232 H Calcium ALT NT-Pro-B Natriuret Pep Albumin Urine WBC (Auto) 09/20/21 09/20/21 09/21/21 15:19 20:04 07:24 Hct RDW Lymph % (Auto) [place] % (Auto) Lymph # (Auto) [place] # (Auto) Seg Neutrophils % Seg Neuts % (Manual) Lymphocytes % (Manual) Seg Neutrophils # Lymphocytes # (Manual) D-Dimer ABG pH ABG pO2 ABG HCO3 ABG O2 Saturation ABG Base Excess Sodium Potassium Chloride Carbon Dioxide BUN Creatinine Glucose POC Glucose 195 H 209 H 58 L Calcium ALT NT-Pro-B Natriuret Pep Albumin Urine WBC (Auto) 09/21/21 09/21/21 09/21/21 11:42 15:48 21:10 Hct RDW Lymph % (Auto) [place] % (Auto) Lymph # (Auto) [place] # (Auto) Seg Neutrophils % Seg Neuts % (Manual) Lymphocytes % (Manual) Seg Neutrophils # Lymphocytes # (Manual) D-Dimer ABG pH ABG pO2 ABG HCO3 ABG O2 Saturation ABG Base Excess Sodium Potassium Chloride Carbon Dioxide BUN Creatinine Glucose POC Glucose 137 H 192 H 321 H Calcium ALT NT-Pro-B Natriuret Pep Albumin Urine WBC (Auto) 09/22/21 07:31 Hct RDW Lymph % (Auto) [place] % (Auto) Lymph # (Auto) [place] # (Auto) Seg Neutrophils % Seg Neuts % (Manual) Lymphocytes % (Manual) Seg Neutrophils # Lymphocytes # (Manual) D-Dimer ABG pH ABG pO2 ABG HCO3 ABG O2 Saturation ABG Base Excess Sodium Potassium Chloride Carbon Dioxide BUN Creatinine Glucose POC Glucose 189 H Calcium ALT NT-Pro-B Natriuret Pep Albumin Urine WBC (Auto)
[2021-09-22] MEDS: ACETAMINOPHEN 325 MG TAB PO PRN ×2 (13:00→22:27)
--- NOTE | 2021-09-22 17:37 | Progress Note ---
Assessment and Plan 50-year-old female patient was admitted with COVID-19 pneumonia severe hypoxic hypercapnic respiratory failure had a prolonged stay in the hospital for 3 to 4 months and was discharged on 08/28/2021 on home oxygen and long-term st eroids and other supportive care, patient again was admitted on the stabilized and discharged on the . patient already has home oxygen and all the medications are needed. Patient readmitted 09/01/21 with acute hypoxic respiratory failure and altered level of consciousness, s/p BiPAP, chest x-ray gaseous distention of the stomach. Pulmonary following, patient also has generalized anxiety on Xanax. 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 Gomes PCR test is negative Severe hypoxic and hypercapnic respiratory failure, required BiPAP on admission Patient was on 10 L of nasal cannula oxygen/100% nonrebreather/BiPAP, currently on high flow O2 X-ray chest show moderate gaseous distention of the stomach severe diffuse bilateral chronic parenchymal opacities that have not changed chest x-ray Patient was recently discharged on on home 3 L oxygen CTA chest; no CT evidence of PE, diffuse severe bilateral mixed interstitial and alveolar opacities CT head without contrast; there is 2 small 2 to 3 mm focus of calcification along the lateral left frontal lobe which appears to be incidental, Patient is receiving currently high-dose Solu-Medrol therapy, per pulmonary --Abdominal distention with ileus Pulmonary recommended NG tube placement with intermittent suction for gastric distention Repeat abdomen x-ray 09/03 showed no gaseous distention, now tolerating diet -- IDDM (insulin dependent diabetes mellitus) Continue home insulin and coverage Follow hemoglobin A1c, SSI as needed --[place] (generalized anxiety disorder) Continue Xanax as necessary --Hypokalemia, repleted --hyperkalemia, s/p kayexalate --Uncontrolled blood sugars probably secondary to steroids, increase Lantus to 15 units subcu daily --Sepsis secondary to UTI/E. coli Completed treatment with Levaquin --DVT prophylaxis On Lovenox and GI prophylaxis Daily clinical course: 09/01/2021; on intermittent BiPAP, chest x-ray gaseous distention of stomach recommend, NG tube placement intermittent suction and supportive care Disposition monitor closely wean will oxygen;, 2 -4 to 5 L nasal cannula, and discharge when stable. Patient already has home oxygen 09/02: Remains hypoxic and hypercapnic, somnolent post Ativan, on high flow O2 30 to 40 L, high-dose Solu-Medrol and NG tube for gastric distention. wean FiO2 as tolerated and BiPAP as needed for the hypercapnia, recheck ABG. Discussed with the pulmonary and nursing staff. 09/03: Off BiPAP this morning, continue to follow serum glucose, patient on high-dose steroid, continue high flow O2 and wean off as tolerated. Repeat abdominal x-ray showed non significant normal bowel gas pattern. Will initiate on clear liquid diet, will monitor off NG tube. 09/04; continue to follow clinically, empiric steroid, wean off O2 as tolerated, patient remains on high flow O2. Will advance diet as tolerated. Continue to monitor serum blood glucose and adjust insulin doses accordingly. 09/05: Follow clinically, consistent carb diet, high-dose empiric steroid, wean off O2 as tolerated. Transfer out of intermediate care to [facility] with telemetry. 09/06: Remains on high flow O2 25 L, continue to provide supportive care, wean off O2 as tolerated, adjust serum blood glucose with insulin, tolerating consistent carb diet. 09/07/21: Continue to replete electrolytes and monitor. Wean off O2 as tolerated, guarded prognosis, continue empiric steroid. Follow clinically. 09/08/21; continue to replete and monitor potassium, wean off O2 as tolerated. Patient remains on 25 L high flow O2. Continue empiric steroid, follow clinically. 09/09/21; spiking temp, will order pancultures, repeat chest x-ray, guarded p rognosis, remains on 25 L high flow O2, follow clinically 09/10; patient is afebrile, remains on high flow 25 L nasal cannula oxygen, wean as tolerated, patient already has home oxygen Wean aggressively as tolerated, if no improvement consider hospice 09/11; patient's urine cultures positive for gram-negative rods, will add Levaquin 750 mg IV daily, follow culture sensitivities and adjust as needed Patient is anxious, has intermittent panic episodes, continue Xanax, consult psych 09/12; urine cultures positive for E. coli, sensitivities include Levaquin, remains on high flow nasal cannula oxygen, wean as tolerated Consults and recommendations noted and appreciated 09/13; sepsis due to UTI E. coli, remains on high flow nasal cannula oxygen, wean as tolerated, psych evaluation noted no new recommendations 09/14/21: On HFNC 20 L/35% FiO2/95 O2 sats, wean as tolerated, continue current ma nagement 09/15/21; remains an HFNC oxygen, chronically ill looking. Consider LTAC placement, social issues 09/16/2021; on 30 L HFNC O2, wean as tolerated 09/17/2021; remains on HFNC 30 L/35% FiO2/94 O2 sats, steroids reduced to 40 mg every 8 hours, follow pulmonary recommendations Unable to consider LTAC, as patient is undocumented and no resources, DC planning per case management when stable 09/18/21; remains on 30 L high flow O2, case operator working on LTAC versus hospice placement. Continue to provide supportive care 09/19/21: Remains on high flow O2, potassium 5.7 today -ordered for Kayexalate. Will monitor BMP. Patient remains on high flow O2. Pending placement. 09/20/21: Remains on high flow O2, continue to monitor BMP. Multiple social issues, unable to find placement. Continue supportive care and wean off O2 as tolerated. Potassium 4.9 today. 09/21/21: unable to find placement. Continue supportive care and wean off O2 as tolerated. Remains on high flow O2. 09/22/21; Continue supportive care and wean off O2 as tolerated. Remains on high flow O2. Patient have no insurance, unable to wean off from O2. LTAC refused,. systems engineering manager working on placement. Subjective Date of service: 09/22/21 Interval history: Patient seen and examined. Medical records and medication list reviewed. No acute event overnight noted by the RN. Patient on high flow O2, tolerating diet, Discussed plan of care at bedside with patient's RN and CM . Objective - Exam Narrative Exam: GENERAL: well-developed and well-nourished female lying on bed appeared to be in moderate discomfort. HEENT: Normocephalic. Atraumatic. No conjunctival congestion or icterus. Patient has moist mucous membranes. NECK: Supple. Trachea midline. CHEST/LUNGS: Diminished breath sound bilaterally. No wheezes crackles or rhonchi. Patient on high flow O2 HEART/CARDIOVASCULAR: Regular in rate and rhythm. S1 and S2 positive. ABDOMEN: Abdomen is soft, nontender. Patient has normal bowel sounds. SKIN: There is no rash. Warm and dry. NEURO: No focal motor deficit. Follows command. MUSCULOSKELETAL: No joint effusion or tenderness. EXTRIMITY: No edema, no cyanosis or clubbing. PSYCH: Cooperative but appears anxious. - Constitutional Vitals: Vital Signs - 12hr 09/22/21 09/22/21 09/22/21 07:33 10:00 16:06 Temperature 98.4 F 98.2 F Pulse Rate 88 109 H 109 H Respiratory 16 18 Rate Blood Pressure 151/79 120/78 O2 Sat by Pulse 98 98 100 Oximetry - Labs CBC & Chem 7: 09/19/21 14:00 09/20/21 04:32 Labs: Abnormal lab results 09/21/21 09/22/21 09/22/21 Range/Units 21:10 07:31 11:20 POC Glucose 321 H 189 H 186 H (70-105) mg/dL 09/22/21 Range/Units 16:08 POC Glucose 182 H (70-105) mg/dL
[2021-09-22] MEDS: INSULIN GLARGINE 100 UNITS/ML SUB-Q SCH (22:30)
[2021-09-23] MEDS: methylPREDNISolone Sod Succinate 40 MG/1 ML INJ IV SCH ×3 (06:09→22:31)
[2021-09-23] MEDS: HEPARIN 5,000 UNIT/1 ML VIAL SUB-Q SCH ×3 (06:10→22:31)
[2021-09-23] MEDS: INSULIN LISPRO 100 UNIT/ML SUB-Q SCH ×4 (08:00→22:31)
[2021-09-23] MEDS: FAMOTIDINE 20 MG TAB PO SCH ×2 (11:36→22:32)
--- NOTE | 2021-09-23 18:14 | Progress Note ---
Assessment and Plan 50-year-old female patient was admitted with COVID-19 pneumonia severe hypoxic hypercapnic respiratory failure had a prolonged stay in the hospital for 3 to 4 months and was discharged on 08/28/2021 on home oxygen and long-term st eroids and other supportive care, patient again was admitted on the stabilized and discharged on the . patient already has home oxygen and all the medications are needed. Patient readmitted 09/01/21 with acute hypoxic respiratory failure and altered level of consciousness, s/p BiPAP, chest x-ray gaseous distention of the stomach. Pulmonary following, patient also has generalized anxiety on Xanax. 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 Gomes PCR test is negative Severe hypoxic and hypercapnic respiratory failure, required BiPAP on admission Patient was on 10 L of nasal cannula oxygen/100% nonrebreather/BiPAP, currently on high flow O2 X-ray chest show moderate gaseous distention of the stomach severe diffuse bilateral chronic parenchymal opacities that have not changed chest x-ray Patient was recently discharged on on home 3 L oxygen CTA chest; no CT evidence of PE, diffuse severe bilateral mixed interstitial and alveolar opacities CT head without contrast; there is 2 small 2 to 3 mm focus of calcification along the lateral left frontal lobe which appears to be incidental, Patient is receiving currently high-dose Solu-Medrol therapy, per pulmonary --Abdominal distention with ileus Pulmonary recommended NG tube placement with intermittent suction for gastric distention Repeat abdomen x-ray 09/03 showed no gaseous distention, now tolerating diet -- IDDM (insulin dependent diabetes mellitus) Continue home insulin and coverage Follow hemoglobin A1c, SSI as needed --[place] (generalized anxiety disorder) Continue Xanax as necessary --Hypokalemia, repleted --hyperkalemia, s/p kayexalate --Uncontrolled blood sugars probably secondary to steroids, increase Lantus to 15 units subcu daily --Sepsis secondary to UTI/E. coli Completed treatment with Levaquin --DVT prophylaxis On Lovenox and GI prophylaxis Daily clinical course: 09/01/2021; on intermittent BiPAP, chest x-ray gaseous distention of stomach recommend, NG tube placement intermittent suction and supportive care Disposition monitor closely wean will oxygen;, 2 -4 to 5 L nasal cannula, and discharge when stable. Patient already has home oxygen 09/02: Remains hypoxic and hypercapnic, somnolent post Ativan, on high flow O2 30 to 40 L, high-dose Solu-Medrol and NG tube for gastric distention. wean FiO2 as tolerated and BiPAP as needed for the hypercapnia, recheck ABG. Discussed with the pulmonary and nursing staff. 09/03: Off BiPAP this morning, continue to follow serum glucose, patient on high-dose steroid, continue high flow O2 and wean off as tolerated. Repeat abdominal x-ray showed non significant normal bowel gas pattern. Will initiate on clear liquid diet, will monitor off NG tube. 09/04; continue to follow clinically, empiric steroid, wean off O2 as tolerated, patient remains on high flow O2. Will advance diet as tolerated. Continue to monitor serum blood glucose and adjust insulin doses accordingly. 09/05: Follow clinically, consistent carb diet, high-dose empiric steroid, wean off O2 as tolerated. Transfer out of intermediate care to [facility] with telemetry. 09/06: Remains on high flow O2 25 L, continue to provide supportive care, wean off O2 as tolerated, adjust serum blood glucose with insulin, tolerating consistent carb diet. 09/07/21: Continue to replete electrolytes and monitor. Wean off O2 as tolerated, guarded prognosis, continue empiric steroid. Follow clinically. 09/08/21; continue to replete and monitor potassium, wean off O2 as tolerated. Patient remains on 25 L high flow O2. Continue empiric steroid, follow clinically. 09/09/21; spiking temp, will order pancultures, repeat chest x-ray, guarded prognosis, remains on 25 L high flow O2, follow clinically 09/10; patient is afebrile, remains on high flow 25 L nasal cannula oxygen, wean as tolerated, patient already has home oxygen Wean aggressively as tolerated, if no improvement consider hospice 09/11; patient's urine cultures positive for gram-negative rods, will add Levaquin 750 mg IV daily, follow culture sensitivities and adjust as needed Patient is anxious, has intermittent panic episodes, continue Xanax, consult psych 09/12; urine cultures positive for E. coli, sensitivities include Levaquin, remains on high flow nasal cannula oxygen, wean as tolerated Consults and recommendations noted and appreciated 09/13; sepsis due to UTI E. coli, remains on high flow nasal cannula oxygen, wean as tolerated, psych evaluation noted no new recommendations 09/14/21: On HFNC 20 L/35% FiO2/95 O2 sats, wean as tolerated, continue current management 09/15/21; remains an HFNC oxygen, chronically ill looking. Consider LTAC placement, social issues 09/16/2021; on 30 L HFNC O2, wean as tolerated 09/17/2021; remains on HFNC 30 L/35% FiO2/94 O2 sats, steroids reduced to 40 mg every 8 hours, follow pulmonary recommendations Unable to consider LTAC, as patient is undocumented and no resources, DC planning per case management when stable 09/18/21; remains on 30 L high flow O2, case mgr working on LTAC versus hospice placement. Continue to provide supportive care 09/19/21: Remains on high flow O2, potassium 5.7 today -ordered for Kayexalate. Will monitor BMP. Patient remains on high flow O2. Pending placement. 09/20/21: Remains on high flow O2, continue to monitor BMP. Multiple social issues, unable to find placement. Continue supportive care and wean off O2 as tolerated. Potassium 4.9 today. 09/21/21: unable to find placement. Continue supportive care and wean off O2 as tolerated. Remains on high flow O2. 09/22/21; Continue supportive care and wean off O2 as tolerated. Remains on high flow O2. Patient have no insurance, unable to wean off from O2. LTAC refused,. financial sales manager working on placement. 09/23: Patient remains on high flow O2, wean off as tolerated. Pulmonary following. Patient need placement to LTAC or home with hospice. Subjective Date of service: 09/23/21 Interval history: Patient seen and examined. Medical records and medication list reviewed. No acute event overnight noted by the RN. Patient on high flow O2, tolerating diet, Discussed plan of care at bedside with patient's RN and CM . Objective - Exam Narrative Exam: GENERAL: well-developed and well-nourished female lying on bed appeared to be in moderate discomfort. HEENT: Normocephalic. Atraumatic. No conjunctival congestion or icterus. Patient has moist mucous membranes. NECK: Supple. Trachea midline. CHEST/LUNGS: Diminished breath sound bilaterally. No wheezes crackles or rhonchi. Patient on high flow O2 HEART/CARDIOVASCULAR: Regular in rate and rhythm. S1 and S2 positive. ABDOMEN: Abdomen is soft, nontender. Patient has normal bowel sounds. SKIN: There is no rash. Warm and dry. NEURO: No focal motor deficit. Follows command. MUSCULOSKELETAL: No joint effusion or tenderness. EXTRIMITY: No edema, no cyanosis or clubbing. PSYCH: Cooperative but appears anxious. - Constitutional Vitals: Vital Signs - 12hr 09/23/21 09/23/21 09/23/21 07:59 08:00 10:00 Temperature 97.5 F L Pulse Rate 85 85 Respiratory 20 Rate Blood Pressure 109/60 O2 Sat by Pulse 100 96 100 Oximetry 09/23/21 09/23/21 14:00 15:38 Temperature 98.3 F Pulse Rate 103 H Respiratory 20 Rate Blood Pressure 113/56 O2 Sat by Pulse 95 98 Oximetry - Labs CBC & Chem 7: 09/19/21 14:00 09/20/21 04:32 Labs: Abnormal lab results 09/22/21 09/23/21 09/23/21 Range/Units 21:55 08:02 12:09 POC Glucose 235 H 114 H 176 H (70-105) mg/dL 09/23/21 Range/Units 17:21 POC Glucose 186 H (70-105) mg/dL
[2021-09-23] MEDS: ACETAMINOPHEN 325 MG TAB PO PRN (18:18)
[2021-09-23] MEDS: INSULIN GLARGINE 100 UNITS/ML SUB-Q SCH (22:31)
[2021-09-23] MEDS: ALPRAZolam 1 MG TAB PO PRN (22:40)
[2021-09-24] MEDS: HEPARIN 5,000 UNIT/1 ML VIAL SUB-Q SCH ×3 (05:58→22:15)
[2021-09-24] MEDS: methylPREDNISolone Sod Succinate 40 MG/1 ML INJ IV SCH ×3 (05:58→22:14)
[2021-09-24] MEDS: INSULIN LISPRO 100 UNIT/ML SUB-Q SCH ×4 (08:00→22:16)
--- NOTE | 2021-09-24 09:14 | Progress Note ---
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 Wean HFNC. 09/20/21: Currently on 20q8, which is about 60 of prednisone daily. Suggest dropping to either 20q12 or change to 40 of prednisone daily starting tomorrow. Wean FiO2 for sats >88%. Will see as needed over the weekend. I am back on Thursday. 09/18/21: Lasix made no improvement. So will not repeat. Will drop steroids to 20q8 starting now. 09/16/21: Lasix 20mg IV x1 today. Prone as tolerated. Wean Flow and FiO2 for sats >88% 09/12/21: No new recs. Will drop steroids to 40q8 09/10/21: Please be more aggressive with oxygen weaning. Will consider weaning steroids again or Thursday. 09/08/21: Continue steroids at current dosing. Wean Fio2 for sats >88%. 09/06/21: Will drop steroids to 60 q8 starting now. 09/04/21: Will start to taper steroids today. Continue to wean FiO2 as tolerated. Anxiety control. High dose steroids Anxiety therapy Wean FiO2 as tolerated ABG not indicated currently as she is sleepy from IV ativan administered because she is NPO and could not get her xanax Subjective Date of service: 09/24/21 Interval history: Patient on 35 and 40 with sat documented of 99%. Not sure why she isnt weaning. Objective Vital Signs - 12hr 09/23/21 09/23/21 09/24/21 22:00 22:52 01:35 Temperature 97.4 F L Pulse Rate 87 Respiratory 20 Rate Blood Pressure 112/72 O2 Sat by Pulse 98 100 99 Oximetry 09/24/21 09/24/21 03:40 07:50 Temperature 97.7 F 98.2 F Pulse Rate 77 81 Respiratory 20 20 Rate Blood Pressure 122/76 135/78 O2 Sat by Pulse 98 99 Oximetry Constitutional: no acute distress ENT: oropharynx moist Neck: supple Ascultation: Bilateral: diminished breath sounds Cardiovascular: regular rate and rhythm Gastrointestinal: normoactive bowel sounds, soft, non-tender Integumentary: normal Extremities: no cyanosis Neurologic: normal mental status CBC and BMP: 09/19/21 14:00 09/20/21 04:32 ABG, PT/INR, D-dimer: ABG ABG pH 7.240 pH Units (7.350-7.450) L 09/01/21 23:56 ABG pCO2 111.3 mm Hg 09/01/21 23:56 ABG pO2 198.0 mm Hg (80.0-90.0) H 09/01/21 23:56 ABG O2 Saturation 99.0 % (95.0-99.0) 09/01/21 23:56 PT/INR, D-dimer D-Dimer 710.59 ng/mlDDU (0-234) H 08/31/21 19:32 Abnormal lab findings: Abnormal Labs 08/31/21 08/31/21 08/31/21 19:32 19:32 19:32 Hct RDW 16.4 H Lymph % (Auto) [place] % (Auto) 9.0 H Lymph # (Auto) [place] # (Auto) 1.0 H Seg Neutrophils % 76.2 H Seg Neuts % (Manual) Lymphocytes % (Manual) Seg Neutrophils # 8.3 H Lymphocytes # (Manual) D-Dimer 710.59 H ABG pH ABG pO2 ABG HCO3 ABG O2 Saturation ABG Base Excess Sodium Potassium Chloride 92.7 L Carbon Dioxide 36 H BUN Creatinine 0.4 L D Glucose 249 H POC Glucose Calcium ALT NT-Pro-B Natriuret Pep Albumin Urine WBC (Auto) 08/31/21 08/31/21 09/01/21 19:32 21:05 09:24 Hct RDW Lymph % (Auto) [place] % (Auto) Lymph # (Auto) [place] # (Auto) Seg Neutrophils % Seg Neuts % (Manual) Lymphocytes % (Manual) Seg Neutrophils # Lymphocytes # (Manual) D-Dimer ABG pH 7.244 L ABG pO2 307.7 H ABG HCO3 47.9 H ABG O2 Saturation 99.4 H ABG Base Excess 16.0 H Sodium Potassium Chloride Carbon Dioxide BUN Creatinine Glucose POC Glucose 106 H Calcium ALT NT-Pro-B Natriuret Pep 524.1 H Albumin Urine WBC (Auto) 09/01/21 09/01/21 09/01/21 13:39 16:22 23:56 Hct RDW Lymph % (Auto) [place] % (Auto) Lymph # (Auto) [place] # (Auto) Seg Neutrophils % Seg Neuts % (Manual) Lymphocytes % (Manual) Seg Neutrophils # Lymphocytes # (Manual) D-Dimer ABG pH 7.240 L ABG pO2 198.0 H ABG HCO3 46.6 H ABG O2 Saturation ABG Base Excess 14.8 H Sodium Potassium Chloride Carbon Dioxide BUN Creatinine Glucose POC Glucose 154 H 188 H Calcium ALT NT-Pro-B Natriuret Pep Albumin Urine WBC (Auto) 09/02/21 09/02/21 09/02/21 01:49 07:22 07:22 Hct RDW 16.4 H Lymph % (Auto) [place] % (Auto) Lymph # (Auto) [place] # (Auto) Seg Neutrophils % Seg Neuts % (Manual) 97.0 H Lymphocytes % (Manual) 2.0 L Seg Neutrophils # Lymphocytes # (Manual) 0.1 L D-Dimer ABG pH ABG pO2 ABG HCO3 ABG O2 Saturation ABG Base Excess Sodium Potassium Chloride 82.7 L Carbon Dioxide 41 H* BUN 21 H Creatinine 0.3 L Glucose 198 H POC Glucose 132 H Calcium ALT NT-Pro-B Natriuret Pep Albumin Urine WBC (Auto) 09/02/21 09/02/21 09/02/21 08:29 11:27 16:59 Hct RDW Lymph % (Auto) [place] % (Auto) Lymph # (Auto) [place] # (Auto) Seg Neutrophils % Seg Neuts % (Manual) Lymphocytes % (Manual) Seg Neutrophils # Lymphocytes # (Manual) D-Dimer ABG pH ABG pO2 ABG HCO3 ABG O2 Saturation ABG Base Excess Sodium Potassium Chloride Carbon Dioxide BUN Creatinine Glucose POC Glucose 201 H 232 H 118 H Calcium ALT NT-Pro-B Natriuret Pep Albumin Urine WBC (Auto) 09/02/21 09/03/21 09/03/21 22:08 06:05 06:05 Hct RDW 16.5 H Lymph % (Auto) [place] % (Auto) Lymph # (Auto) [place] # (Auto) Seg Neutrophils % Seg Neuts % (Manual) 94.0 H Lymphocytes % (Manual) 3.0 L Seg Neutrophils # Lymphocytes # (Manual) 0.2 L D-Dimer ABG pH ABG pO2 ABG HCO3 ABG O2 Saturation ABG Base Excess Sodium Potassium Chloride 79.3 L Carbon Dioxide 52 H* D BUN 27 H Creatinine 0.2 L Glucose 228 H POC Glucose 241 H Calcium 10.4 H ALT 71 H NT-Pro-B Natriuret Pep Albumin 3.8 L Urine WBC (Auto) 09/03/21 09/03/21 09/03/21 07:53 11:37 15:52 Hct RDW Lymph % (Auto) [place] % (Auto) Lymph # (Auto) [place] # (Auto) Seg Neutrophils % Seg Neuts % (Manual) Lymphocytes % (Manual) Seg Neutrophils # Lymphocytes # (Manual) D-Dimer ABG pH ABG pO2 ABG HCO3 ABG O2 Saturation ABG Base Excess Sodium Potassium Chloride Carbon Dioxide BUN Creatinine Glucose POC Glucose 241 H 202 H 284 H Calcium ALT NT-Pro-B Natriuret Pep Albumin Urine WBC (Auto) 09/03/21 09/04/21 09/04/21 22:07 08:33 11:16 Hct RDW Lymph % (Auto) [place] % (Auto) Lymph # (Auto) [place] # (Auto) Seg Neutrophils % Seg Neuts % (Manual) Lymphocytes % (Manual) Seg Neutrophils # Lymphocytes # (Manual) D-Dimer ABG pH ABG pO2 ABG HCO3 ABG O2 Saturation ABG Base Excess Sodium Potassium Chloride Carbon Dioxide BUN Creatinine Glucose POC Glucose 311 H 232 H 356 H Calcium ALT NT-Pro-B Natriuret Pep Albumin Urine WBC (Auto) 09/04/21 09/04/21 09/05/21 17:10 23:05 08:08 Hct RDW Lymph % (Auto) [place] % (Auto) Lymph # (Auto) [place] # (Auto) Seg Neutrophils % Seg Neuts % (Manual) Lymphocytes % (Manual) Seg Neutrophils # Lymphocytes # (Manual) D-Dimer ABG pH ABG pO2 ABG HCO3 ABG O2 Saturation ABG Base Excess Sodium Potassium Chloride Carbon Dioxide BUN Creatinine Glucose POC Glucose 328 H 150 H 342 H Calcium ALT NT-Pro-B Natriuret Pep Albumin Urine WBC (Auto) 09/05/21 09/05/21 09/05/21 11:04 13:23 13:23 Hct RDW 17.1 H Lymph % (Auto) [place] % (Auto) Lymph # (Auto) [place] # (Auto) Seg Neutrophils % Seg Neuts % (Manual) Lymphocytes % (Manual) Seg Neutrophils # Lymphocytes # (Manual) D-Dimer ABG pH ABG pO2 ABG HCO3 ABG O2 Saturation ABG Base Excess Sodium Potassium 2.6 L* D Chloride 74.4 L Carbon Dioxide 46 H* BUN Creatinine 0.3 L Glucose 389 H POC Glucose 395 H Calcium ALT NT-Pro-B Natriuret Pep Albumin Urine WBC (Auto) 09/05/21 09/05/21 09/06/21 16:22 21:09 08:02 Hct RDW Lymph % (Auto) [place] % (Auto) Lymph # (Auto) [place] # (Auto) Seg Neutrophils % Seg Neuts % (Manual) Lymphocytes % (Manual) Seg Neutrophils # Lymphocytes # (Manual) D-Dimer ABG pH ABG pO2 ABG HCO3 ABG O2 Saturation ABG Base Excess Sodium Potassium Chloride Carbon Dioxide BUN Creatinine Glucose POC Glucose 195 H 243 H 119 H Calcium ALT NT-Pro-B Natriuret Pep Albumin Urine WBC (Auto) 09/06/21 09/06/21 09/06/21 11:00 11:19 16:06 Hct RDW Lymph % (Auto) [place] % (Auto) Lymph # (Auto) [place] # (Auto) Seg Neutrophils % Seg Neuts % (Manual) Lymphocytes % (Manual) Seg Neutrophils # Lymphocytes # (Manual) D-Dimer ABG pH ABG pO2 ABG HCO3 ABG O2 Saturation ABG Base Excess Sodium 136 L Potassium Chloride 78.3 L Carbon Dioxide 47 H* BUN Creatinine 0.3 L Glucose 354 H POC Glucose 309 H 381 H Calcium ALT NT-Pro-B Natriuret Pep Albumin Urine WBC (Auto) 09/06/21 09/07/21 09/07/21 22:25 11:11 16:50 Hct RDW Lymph % (Auto) [place] % (Auto) Lymph # (Auto) [place] # (Auto) Seg Neutrophils % Seg Neuts % (Manual) Lymphocytes % (Manual) Seg Neutrophils # Lymphocytes # (Manual) D-Dimer ABG pH ABG pO2 ABG HCO3 ABG O2 Saturation ABG Base Excess Sodium Potassium Chloride Carbon Dioxide BUN Creatinine Glucose POC Glucose 217 H 442 H 222 H Calcium ALT NT-Pro-B Natriuret Pep Albumin Urine WBC (Auto) 09/07/21 09/08/21 09/08/21 21:52 04:31 04:31 Hct 44.9 H RDW 17.2 H Lymph % (Auto) 12.3 L [place] % (Auto) Lymph # (Auto) 1.0 L [place] # (Auto) Seg Neutrophils % 79.1 H Seg Neuts % (Manual) Lymphocytes % (Manual) Seg Neutrophils # Lymphocytes # (Manual) D-Dimer ABG pH ABG pO2 ABG HCO3 ABG O2 Saturation ABG Base Excess Sodium Potassium 2.8 L* D Chloride 87.6 L Carbon Dioxide 45 H* BUN Creatinine 0.2 L Glucose 46 L POC Glucose 360 H Calcium ALT NT-Pro-B Natriuret Pep Albumin Urine WBC (Auto) 09/08/21 09/08/21 09/08/21 05:25 05:53 11:50 Hct RDW Lymph % (Auto) [place] % (Auto) Lymph # (Auto) [place] # (Auto) Seg Neutrophils % Seg Neuts % (Manual) Lymphocytes % (Manual) Seg Neutrophils # Lymphocytes # (Manual) D-Dimer ABG pH ABG pO2 ABG HCO3 ABG O2 Saturation ABG Base Excess Sodium Potassium Chloride Carbon Dioxide BUN Creatinine Glucose POC Glucose 39 L 64 L 280 H Calcium ALT NT-Pro-B Natriuret Pep Albumin Urine WBC (Auto) 09/08/21 09/08/21 09/09/21 16:20 21:32 07:20 Hct RDW Lymph % (Auto) [place] % (Auto) Lymph # (Auto) [place] # (Auto) Seg Neutrophils % Seg Neuts % (Manual) Lymphocytes % (Manual) Seg Neutrophils # Lymphocytes # (Manual) D-Dimer ABG pH ABG pO2 ABG HCO3 ABG O2 Saturation ABG Base Excess Sodium Potassium Chloride Carbon Dioxide BUN Creatinine Glucose POC Glucose 256 H 203 H 194 H Calcium ALT NT-Pro-B Natriuret Pep Albumin Urine WBC (Auto) 09/09/21 09/09/21 09/09/21 07:50 11:13 16:20 Hct RDW Lymph % (Auto) [place] % (Auto) Lymph # (Auto) [place] # (Auto) Seg Neutrophils % Seg Neuts % (Manual) Lymphocytes % (Manual) Seg Neutrophils # Lymphocytes # (Manual) D-Dimer ABG pH ABG pO2 ABG HCO3 ABG O2 Saturation ABG Base Excess Sodium Potassium Chloride 88.8 L Carbon Dioxide 39 H BUN Creatinine < 0.2 L Glucose 197 H POC Glucose 258 H 231 H Calcium ALT NT-Pro-B Natriuret Pep Albumin Urine WBC (Auto) 09/09/21 09/10/21 09/10/21 22:17 07:00 08:02 Hct RDW Lymph % (Auto) [place] % (Auto) Lymph # (Auto) [place] # (Auto) Seg Neutrophils % Seg Neuts % (Manual) Lymphocytes % (Manual) Seg Neutrophils # Lymphocytes # (Manual) D-Dimer ABG pH ABG pO2 ABG HCO3 ABG O2 Saturation ABG Base Excess Sodium Potassium Chloride Carbon Dioxide BUN Creatinine Glucose POC Glucose 222 H 213 H Calcium ALT NT-Pro-B Natriuret Pep Albumin Urine WBC (Auto) 24.0 H 09/10/21 09/10/21 09/10/21 11:22 15:49 22:08 Hct RDW Lymph % (Auto) [place] % (Auto) Lymph # (Auto) [place] # (Auto) Seg Neutrophils % Seg Neuts % (Manual) Lymphocytes % (Manual) Seg Neutrophils # Lymphocytes # (Manual) D-Dimer ABG pH ABG pO2 ABG HCO3 ABG O2 Saturation ABG Base Excess Sodium Potassium Chloride Carbon Dioxide BUN Creatinine Glucose POC Glucose 241 H 201 H 212 H Calcium ALT NT-Pro-B Natriuret Pep Albumin Urine WBC (Auto) 09/11/21 09/11/21 09/11/21 08:01 11:21 16:41 Hct RDW Lymph % (Auto) [place] % (Auto) Lymph # (Auto) [place] # (Auto) Seg Neutrophils % Seg Neuts % (Manual) Lymphocytes % (Manual) Seg Neutrophils # Lymphocytes # (Manual) D-Dimer ABG pH ABG pO2 ABG HCO3 ABG O2 Saturation ABG Base Excess Sodium Potassium Chloride Carbon Dioxide BUN Creatinine Glucose POC Glucose 207 H 265 H 234 H Calcium ALT NT-Pro-B Natriuret Pep Albumin Urine WBC (Auto) 09/11/21 09/12/21 09/12/21 22:09 08:38 11:28 Hct RDW Lymph % (Auto) [place] % (Auto) Lymph # (Auto) [place] # (Auto) Seg Neutrophils % Seg Neuts % (Manual) Lymphocytes % (Manual) Seg Neutrophils # Lymphocytes # (Manual) D-Dimer ABG pH ABG pO2 ABG HCO3 ABG O2 Saturation ABG Base Excess Sodium Potassium Chloride Carbon Dioxide BUN Creatinine Glucose POC Glucose 293 H 222 H 326 H Calcium ALT NT-Pro-B Natriuret Pep Albumin Urine WBC (Auto) 09/12/21 09/12/21 09/13/21 16:25 21:45 07:41 Hct RDW Lymph % (Auto) [place] % (Auto) Lymph # (Auto) [place] # (Auto) Seg Neutrophils % Seg Neuts % (Manual) Lymphocytes % (Manual) Seg Neutrophils # Lymphocytes # (Manual) D-Dimer ABG pH ABG pO2 ABG HCO3 ABG O2 Saturation ABG Base Excess Sodium Potassium Chloride Carbon Dioxide BUN Creatinine Glucose POC Glucose 130 H 191 H 165 H Calcium ALT NT-Pro-B Natriuret Pep Albumin Urine WBC (Auto) 09/13/21 09/13/21 09/13/21 11:12 16:59 22:01 Hct RDW Lymph % (Auto) [place] % (Auto) Lymph # (Auto) [place] # (Auto) Seg Neutrophils % Seg Neuts % (Manual) Lymphocytes % (Manual) Seg Neutrophils # Lymphocytes # (Manual) D-Dimer ABG pH ABG pO2 ABG HCO3 ABG O2 Saturation ABG Base Excess Sodium Potassium Chloride Carbon Dioxide BUN Creatinine Glucose POC Glucose 263 H 162 H 276 H Calcium ALT NT-Pro-B Natriuret Pep Albumin Urine WBC (Auto) 09/14/21 09/14/21 09/14/21 08:12 12:28 16:30 Hct RDW Lymph % (Auto) [place] % (Auto) Lymph # (Auto) [place] # (Auto) Seg Neutrophils % Seg Neuts % (Manual) Lymphocytes % (Manual) Seg Neutrophils # Lymphocytes # (Manual) D-Dimer ABG pH ABG pO2 ABG HCO3 ABG O2 Saturation ABG Base Excess Sodium Potassium Chloride Carbon Dioxide BUN Creatinine Glucose POC Glucose 179 H 212 H 227 H Calcium ALT NT-Pro-B Natriuret Pep Albumin Urine WBC (Auto) 09/14/21 09/15/21 09/15/21 22:56 12:12 18:05 Hct RDW Lymph % (Auto) [place] % (Auto) Lymph # (Auto) [place] # (Auto) Seg Neutrophils % Seg Neuts % (Manual) Lymphocytes % (Manual) Seg Neutrophils # Lymphocytes # (Manual) D-Dimer ABG pH ABG pO2 ABG HCO3 ABG O2 Saturation ABG Base Excess Sodium Potassium Chloride Carbon Dioxide BUN Creatinine Glucose POC Glucose 275 H 297 H 247 H Calcium ALT NT-Pro-B Natriuret Pep Albumin Urine WBC (Auto) 09/15/21 09/16/21 09/16/21 22:21 07:51 11:22 Hct RDW Lymph % (Auto) [place] % (Auto) Lymph # (Auto) [place] # (Auto) Seg Neutrophils % Seg Neuts % (Manual) Lymphocytes % (Manual) Seg Neutrophils # Lymphocytes # (Manual) D-Dimer ABG pH ABG pO2 ABG HCO3 ABG O2 Saturation ABG Base Excess Sodium Potassium Chloride Carbon Dioxide BUN Creatinine Glucose POC Glucose 309 H 196 H 278 H Calcium ALT NT-Pro-B Natriuret Pep Albumin Urine WBC (Auto) 09/16/21 09/16/21 09/17/21 16:10 21:56 07:45 Hct RDW Lymph % (Auto) [place] % (Auto) Lymph # (Auto) [place] # (Auto) Seg Neutrophils % Seg Neuts % (Manual) Lymphocytes % (Manual) Seg Neutrophils # Lymphocytes # (Manual) D-Dimer ABG pH ABG pO2 ABG HCO3 ABG O2 Saturation ABG Base Excess Sodium Potassium Chloride Carbon Dioxide BUN Creatinine Glucose POC Glucose 264 H 246 H 174 H Calcium ALT NT-Pro-B Natriuret Pep Albumin Urine WBC (Auto) 09/17/21 09/17/21 09/17/21 11:25 15:43 21:19 Hct RDW Lymph % (Auto) [place] % (Auto) Lymph # (Auto) [place] # (Auto) Seg Neutrophils % Seg Neuts % (Manual) Lymphocytes % (Manual) Seg Neutrophils # Lymphocytes # (Manual) D-Dimer ABG pH ABG pO2 ABG HCO3 ABG O2 Saturation ABG Base Excess Sodium Potassium Chloride Carbon Dioxide BUN Creatinine Glucose POC Glucose 275 H 242 H 255 H Calcium ALT NT-Pro-B Natriuret Pep Albumin Urine WBC (Auto) 09/18/21 09/18/21 09/18/21 08:00 11:50 17:30 Hct RDW Lymph % (Auto) [place] % (Auto) Lymph # (Auto) [place] # (Auto) Seg Neutrophils % Seg Neuts % (Manual) Lymphocytes % (Manual) Seg Neutrophils # Lymphocytes # (Manual) D-Dimer ABG pH ABG pO2 ABG HCO3 ABG O2 Saturation ABG Base Excess Sodium Potassium Chloride Carbon Dioxide BUN Creatinine Glucose POC Glucose 170 H 244 H 218 H Calcium ALT NT-Pro-B Natriuret Pep Albumin Urine WBC (Auto) 09/18/21 09/19/21 09/19/21 22:32 12:20 14:00 Hct RDW 18.6 H Lymph % (Auto) [place] % (Auto) Lymph # (Auto) [place] # (Auto) Seg Neutrophils % Seg Neuts % (Manual) Lymphocytes % (Manual) Seg Neutrophils # Lymphocytes # (Manual) D-Dimer ABG pH ABG pO2 ABG HCO3 ABG O2 Saturation ABG Base Excess Sodium Potassium Chloride Carbon Dioxide BUN Creatinine Glucose POC Glucose 295 H 220 H Calcium ALT NT-Pro-B Natriuret Pep Albumin Urine WBC (Auto) 09/19/21 09/19/21 09/19/21 14:00 18:32 21:19 Hct RDW Lymph % (Auto) [place] % (Auto) Lymph # (Auto) [place] # (Auto) Seg Neutrophils % Seg Neuts % (Manual) Lymphocytes % (Manual) Seg Neutrophils # Lymphocytes # (Manual) D-Dimer ABG pH ABG pO2 ABG HCO3 ABG O2 Saturation ABG Base Excess Sodium 136 L Potassium 5.7 H Chloride 92.1 L Carbon Dioxide 37 H BUN 21 H Creatinine 0.2 L Glucose 230 H POC Glucose 173 H 190 H Calcium ALT NT-Pro-B Natriuret Pep Albumin Urine WBC (Auto) 09/20/21 09/20/21 09/20/21 04:32 07:57 11:06 Hct RDW Lymph % (Auto) [place] % (Auto) Lymph # (Auto) [place] # (Auto) Seg Neutrophils % Seg Neuts % (Manual) Lymphocytes % (Manual) Seg Neutrophils # Lymphocytes # (Manual) D-Dimer ABG pH ABG pO2 ABG HCO3 ABG O2 Saturation ABG Base Excess Sodium 135 L Potassium Chloride 92.3 L Carbon Dioxide 33 H BUN 18 H Creatinine 0.2 L Glucose 264 H POC Glucose 237 H 232 H Calcium ALT NT-Pro-B Natriuret Pep Albumin Urine WBC (Auto) 09/20/21 09/20/21 09/21/21 15:19 20:04 07:24 Hct RDW Lymph % (Auto) [place] % (Auto) Lymph # (Auto) [place] # (Auto) Seg Neutrophils % Seg Neuts % (Manual) Lymphocytes % (Manual) Seg Neutrophils # Lymphocytes # (Manual) D-Dimer ABG pH ABG pO2 ABG HCO3 ABG O2 Saturation ABG Base Excess Sodium Potassium Chloride Carbon Dioxide BUN Creatinine Glucose POC Glucose 195 H 209 H 58 L Calcium ALT NT-Pro-B Natriuret Pep Albumin Urine WBC (Auto) 09/21/21 09/21/21 09/21/21 11:42 15:48 21:10 Hct RDW Lymph % (Auto) [place] % (Auto) Lymph # (Auto) [place] # (Auto) Seg Neutrophils % Seg Neuts % (Manual) Lymphocytes % (Manual) Seg Neutrophils # Lymphocytes # (Manual) D-Dimer ABG pH ABG pO2 ABG HCO3 ABG O2 Saturation ABG Base Excess Sodium Potassium Chloride Carbon Dioxide BUN Creatinine Glucose POC Glucose 137 H 192 H 321 H Calcium ALT NT-Pro-B Natriuret Pep Albumin Urine WBC (Auto) 09/22/21 09/22/21 09/22/21 07:31 11:20 16:08 Hct RDW Lymph % (Auto) [place] % (Auto) Lymph # (Auto) [place] # (Auto) Seg Neutrophils % Seg Neuts % (Manual) Lymphocytes % (Manual) Seg Neutrophils # Lymphocytes # (Manual) D-Dimer ABG pH ABG pO2 ABG HCO3 ABG O2 Saturation ABG Base Excess Sodium Potassium Chloride Carbon Dioxide BUN Creatinine Glucose POC Glucose 189 H 186 H 182 H Calcium ALT NT-Pro-B Natriuret Pep Albumin Urine WBC (Auto) 09/22/21 09/23/21 09/23/21 21:55 08:02 12:09 Hct RDW Lymph % (Auto) [place] % (Auto) Lymph # (Auto) [place] # (Auto) Seg Neutrophils % Seg Neuts % (Manual) Lymphocytes % (Manual) Seg Neutrophils # Lymphocytes # (Manual) D-Dimer ABG pH ABG pO2 ABG HCO3 ABG O2 Saturation ABG Base Excess Sodium Potassium Chloride Carbon Dioxide BUN Creatinine Glucose POC Glucose 235 H 114 H 176 H Calcium ALT NT-Pro-B Natriuret Pep Albumin Urine WBC (Auto) 09/23/21 09/23/21 09/24/21 17:21 20:20 07:50 Hct RDW Lymph % (Auto) [place] % (Auto) Lymph # (Auto) [place] # (Auto) Seg Neutrophils % Seg Neuts % (Manual) Lymphocytes % (Manual) Seg Neutrophils # Lymphocytes # (Manual) D-Dimer ABG pH ABG pO2 ABG HCO3 ABG O2 Saturation ABG Base Excess Sodium Potassium Chloride Carbon Dioxide BUN Creatinine Glucose POC Glucose 186 H 167 H 69 L Calcium ALT NT-Pro-B Natriuret Pep Albumin Urine WBC (Auto)
[2021-09-24] MEDS: FAMOTIDINE 20 MG TAB PO SCH ×2 (11:26→22:15)
[2021-09-24] MEDS: ACETAMINOPHEN 325 MG TAB PO PRN ×2 (18:07→22:14)
--- NOTE | 2021-09-24 18:11 | Progress Note ---
Assessment and Plan Assessment and plan: 50-year-old female patient was admitted with COVID-19 pneumonia severe hypoxic hypercapnic respiratory failure had a prolonged stay in the hospital for 3 to 4 months and was discharged on 08/28/2021 on home oxygen and long-term steroids and other supportive care, patient again was admitted on the stabilized and discharged on the . patient already has home oxygen and all the medications are needed. Patient readmitted 09/01/21 with acute hypoxic respiratory failure and altered level of consciousness, s/p BiPAP, chest x-ray gaseous distention of the stomach. Pulmonary following, patient also has generalized anxiety on Xanax. 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 Gomes PCR test is negative Severe hypoxic and hypercapnic respiratory failure, required BiPAP on admission Patient was on 10 L of nasal cannula oxygen/100% nonrebreather/BiPAP, currently on high flow O2 X-ray chest show moderate gaseous distention of the stomach severe diffuse bilateral chronic parenchymal opacities that have not changed chest x-ray Patient was recently discharged on on home 3 L oxygen CTA chest; no CT evidence of PE, diffuse severe bilateral mixed interstitial and alveolar opacities CT head without contrast; there is 2 small 2 to 3 mm focus of calcification along the lateral left frontal lobe which appears to be incidental, Patient is receiving currently high-dose Solu-Medrol therapy, per pulmonary --Abdominal distention with ileus Pulmonary recommended NG tube placement with intermittent suction for gastric distention Repeat abdomen x-ray 09/03 showed no gaseous distention, now tolerating diet -- IDDM (insulin dependent diabetes mellitus) Continue home insulin and coverage Follow hemoglobin A1c, SSI as needed --[place] (generalized anxiety disorder) Continue Xanax as necessary --Hypokalemia, repleted --hyperkalemia, s/p kayexalate --Uncontrolled blood sugars probably secondary to steroids, increase Lantus to 15 units subcu daily --Sepsis secondary to UTI/E. coli Completed treatment with Levaquin --DVT prophylaxis On Lovenox and GI prophylaxis Daily clinical course: 09/01/2021; on intermittent BiPAP, chest x-ray gaseous distention of stomach recommend, NG tube placement intermittent suction and supportive care Disposition monitor closely wean will oxygen;, 2 -4 to 5 L nasal cannula, and discharge when stable. Patient already has home oxygen 09/02: Remains hypoxic and hypercapnic, somnolent post Ativan, on high flow O2 30 to 40 L, high-dose Solu-Medrol and NG tube for gastric distention. wean FiO2 as tolerated and BiPAP as needed for the hypercapnia, recheck ABG. Discussed with the pulmonary and nursing staff. 09/03: Off BiPAP this morning, continue to follow serum glucose, patient on high -dose steroid, continue high flow O2 and wean off as tolerated. Repeat abdominal x-ray showed non significant normal bowel gas pattern. Will initiate on clear liquid diet, will monitor off NG tube. 09/04; continue to follow clinically, empiric steroid, wean off O2 as tolerated, patient remains on high flow O2. Will advance diet as tolerated. Continue to monitor serum blood glucose and adjust insulin doses accordingly. 09/05: Follow clinically, consistent carb diet, high-dose empiric steroid, wean off O2 as tolerated. Transfer out of intermediate care to [facility] with telemetry. 09/06: Remains on high flow O2 25 L, continue to provide supportive care, wean off O2 as tolerated, adjust serum blood glucose with insulin, tolerating consistent carb diet. 09/07/21: Continue to replete electrolytes and monitor. Wean off O2 as tolerated, guarded prognosis, continue empiric steroid. Follow clinically. 09/08/21; continue to replete and monitor potassium, wean off O2 as tolerated. Patient remains on 25 L high flow O2. Continue empiric steroid, follow clinically. 09/09/21; spiking temp, will order pancultures, repeat chest x-ray, guarded prognosis, remains on 25 L high flow O2, follow clinically 09/10; patient is afebrile, remains on high flow 25 L nasal cannula oxygen, wean as tolerated, patient already has home oxygen Wean aggressively as tolerated, if no improvement consider hospice 09/11; patient's urine cultures positive for gram-negative rods, will add Levaquin 750 mg IV daily, follow culture sensitivities and adjust as needed Patient is anxious, has intermittent panic episodes, continue Xanax, consult psych 09/12; urine cultures positive for E. coli, sensitivities include Levaquin, remains on high flow nasal cannula oxygen, wean as tolerated Consults and recommendations noted and appreciated 09/13; sepsis due to UTI E. coli, remains on high flow nasal cannula oxygen, wean as tolerated, psych evaluation noted no new recommendations 09/14/21: On HFNC 20 L/35% FiO2/95 O2 sats, wean as tolerated, continue current management 09/15/21; remains an HFNC oxygen, chronically ill looking. Consider LTAC placement, social issues 09/16/2021; on 30 L HFNC O2, wean as tolerated 09/17/2021; remains on HFNC 30 L/35% FiO2/94 O2 sats, steroids reduced to 40 mg every 8 hours, follow pulmonary recommendations Unable to consider LTAC, as patient is undocumented and no resources, DC planning per case management when stable 09/18/21; remains on 30 L high flow O2, geriatric case manager working on LTAC versus hospice placement. Continue to provide supportive care 09/19/21: Remains on high flow O2, potassium 5.7 today -ordered for Kayexalate. Will monitor BMP. Patient remains on high flow O2. Pending placement. 09/20/21: Remains on high flow O2, continue to monitor BMP. Multiple social issues, unable to find placement. Continue supportive care and wean off O2 as tolerated. Potassium 4.9 today. 09/21/21: unable to find placement. Continue supportive care and wean off O2 as tolerated. Remains on high flow O2. 09/22/21; Continue supportive care and wean off O2 as tolerated. Remains on high flow O2. Patient have no insurance, unable to wean off from O2. LTAC refused ,. library manager working on placement. 09/23: Patient remains on high flow O2, wean off as tolerated. Pulmonary following. Patient need placement to LTAC or home with hospice. 09/24/2021: Patient is awake, alert and verbal. She has mild respiratory distress at rest with a tachypnea, remains on high flow oxygen at 35 L. She is currently bedbound. She has good strength in upper extremities but poor strength in both lower extremities. Spoke with her daughter who speaks fluent Ivorian regarding her home hospice. Her daughter states that family does not want home hospice. Daughter further states that they're planning to take her home in [place] via private aircraft. She is in contact with the medical team in [place] and planning to send medical records there. Case management on the case for discharge planning. History Interval history: Patient is awake, alert and verbal. She has mild respiratory distress at rest with a tachypnea, remains on high flow oxygen at 35 L. She is currently bedbound. She has good strength in upper extremities but poor strength in both lower extremities. Spoke with her daughter who speaks fluent Ivorian regarding her home hospice. Her daughter states that family did not agree for home hospice. Daughter further states that they're planning to take her home in [place] via private aircraft. She is in contact with the medical team in [place] and planning to send medical records there. Hospitalist Physical - Constitutional Vitals: Temp Pulse Resp BP Pulse Ox 98.0 F 95 H 20 128/78 98 09/24/21 16:11 09/24/21 16:11 09/24/21 16:11 09/24/21 16:11 09/24/21 16:11 General appearance: Present: mild distress, well-nourished, other (On high flow oxygen, alert and awake) - EENT Eyes: Present: PERRL, EOM intact ENT: hearing intact - Neck Neck: Present: supple - Respiratory Respiratory effort: labored (Mother's mental distance with the tachypnea and rest.) Respiratory: bilateral: diminished, rales - Cardiovascular Rhythm: regular - Extremities Extremities: No edema - Abdominal General gastrointestinal: soft, non-tender - Integumentary Integumentary: Absent: rash - Psychiatric Psychiatric: appropriate mood/affect - Neurologic Neurologic: other (Alert and available. Strength in upper extremities normal and symmetrical. Strength in lower extremities poor and symmetrical, 2/5. Gait not tested.) Results - Labs CBC & Chem 7: 09/19/21 14:00 09/20/21 04:32 Labs: Laboratory Last Values WBC 9.6 K/mm3 (4.5-11.0) 09/19/21 14:00 RBC 4.71 M/mm3 (3.65-5.03) 09/19/21 14:00 Hgb 13.2 gm/dl (10.1-14.3) 09/19/21 14:00 Hct 42.9 % (30.3-42.9) 09/19/21 14:00 MCV 91 fl (79-97) 09/19/21 14:00 MCH 28 pg (28-32) 09/19/21 14:00 MCHC 31 % (30-34) 09/19/21 14:00 RDW 18.6 % (13.2-15.2) H 09/19/21 14:00 Plt Count 305 K/mm3 (140-440) 09/19/21 14:00 Lymph % (Auto) 12.3 % (13.4-35.0) L 09/08/21 04:31 Sargent % (Auto) 6.6 % (0.0-7.3) 09/08/21 04:31 Eos % (Auto) 0.3 % (0.0-4.3) 09/08/21 04:31 Baso % (Auto) 1.7 % (0.0-1.8) 09/08/21 04:31 Lymph # (Auto) 1.0 K/mm3 (1.2-5.4) L 09/08/21 04:31 Sargent # (Auto) 0.5 K/mm3 (0.0-0.8) 09/08/21 04:31 Eos # (Auto) 0.0 K/mm3 (0.0-0.4) 09/08/21 04:31 Baso # (Auto) 0.1 K/mm3 (0.0-0.1) 09/08/21 04:31 Add Manual Diff Complete 09/03/21 06:05 Total Counted 100 09/03/21 06:05 Seg Neutrophils % 79.1 % (40.0-70.0) H 09/08/21 04:31 Seg Neuts % (Manual) 94.0 % (40.0-70.0) H 09/03/21 06:05 Lymphocytes % (Manual) 3.0 % (13.4-35.0) L 09/03/21 06:05 Monocytes % (Manual) 3.0 % (0.0-7.3) 09/03/21 06:05 Nucleated RBC % Not Reportable 09/03/21 06:05 Seg Neutrophils # 6.5 K/mm3 (1.8-7.7) 09/08/21 04:31 Seg Neutrophils # Man 7.3 K/mm3 (1.8-7.7) 09/03/21 06:05 Band Neutrophils # 0.0 K/mm3 09/03/21 06:05 Lymphocytes # (Manual) 0.2 K/mm3 (1.2-5.4) L 09/03/21 06:05 Abs React Lymphs (Man) 0.0 K/mm3 09/03/21 06:05 Monocytes # (Manual) 0.2 K/mm3 (0.0-0.8) 09/03/21 06:05 Eosinophils # (Manual) 0.0 K/mm3 (0.0-0.4) 09/03/21 06:05 Basophils # (Manual) 0.0 K/mm3 (0.0-0.1) 09/03/21 06:05 Metamyelocytes # 0.0 K/mm3 09/03/21 06:05 Myelocytes # 0.0 K/mm3 09/03/21 06:05 Promyelocytes # 0.0 K/mm3 09/03/21 06:05 Blast Cells # 0.0 K/mm3 09/03/21 06:05 WBC Morphology Not Reportable 09/03/21 06:05 Hypersegmented Neuts Not Reportable 09/03/21 06:05 Hyposegmented Neuts Not Reportable 09/03/21 06:05 Hypogranular Neuts Not Reportable 09/03/21 06:05 Smudge Cells Not Reportable 09/03/21 06:05 Toxic Granulation Not Reportable 09/03/21 06:05 Toxic Vacuolation Not Reportable 09/03/21 06:05 Dohle Bodies Not Reportable 09/03/21 06:05 Pelger-Huet Anomaly Not Reportable 09/03/21 06:05 Janelle Rods Not Reportable 09/03/21 06:05 Platelet Estimate Consistent w auto 09/03/21 06:05 Clumped Platelets Not Reportable 09/03/21 06:05 Plt Clumps, EDTA Not Reportable 09/03/21 06:05 Large Platelets Not Reportable 09/03/21 06:05 Giant Platelets Not Reportable 09/03/21 06:05 Platelet Satelliting Not Reportable 09/03/21 06:05 Plt Morphology Comment Not Reportable 09/03/21 06:05 RBC Morphology Normal 09/03/21 06:05 Dimorphic RBCs Not Reportable 09/03/21 06:05 Polychromasia Not Reportable 09/03/21 06:05 Hypochromasia Not Reportable 09/03/21 06:05 Poikilocytosis 1+ 09/03/21 06:05 Anisocytosis Not Reportable 09/03/21 06:05 Microcytosis Not Reportable 09/03/21 06:05 Macrocytosis Not Reportable 09/03/21 06:05 Spherocytes Not Reportable 09/03/21 06:05 Pappenheimer Bodies Not Reportable 09/03/21 06:05 Sickle Cells Not Reportable 09/03/21 06:05 Target Cells Not Reportable 09/03/21 06:05 Tear Drop Cells Not Reportable 09/03/21 06:05 Ovalocytes Not Reportable 09/03/21 06:05 Stomatocytes 3+ 09/03/21 06:05 Helmet Cells Not Reportable 09/03/21 06:05 Ahuja-Chatom Bodies Not Reportable 09/03/21 06:05 [place] Rings Not Reportable 09/03/21 06:05 Crow Cells Not Reportable 09/03/21 06:05 Bite Cells Not Reportable 09/03/21 06:05 Crenated Cell Not Reportable 09/03/21 06:05 Elliptocytes Not Reportable 09/03/21 06:05 Acanthocytes (Spur) Not Reportable 09/03/21 06:05 Rouleaux Not Reportable 09/03/21 06:05 Hemoglobin C Crystals Not Reportable 09/03/21 06:05 Schistocytes Not Reportable 09/03/21 06:05 Malaria parasites Not Reportable 09/03/21 06:05 Justin Bodies Not Reportable 09/03/21 06:05 Hem Pathologist Commnt No 09/03/21 06:05 D-Dimer 710.59 ng/mlDDU (0-234) H 08/31/21 19:32 ABG pH 7.240 pH Units (7.350-7.450) L 09/01/21 23:56 ABG pCO2 111.3 mm Hg 09/01/21 23:56 ABG pO2 198.0 mm Hg (80.0-90.0) H 09/01/21 23:56 ABG HCO3 46.6 mmol/L (20.0-26.0) H 09/01/21 23:56 ABG O2 Saturation 99.0 % (95.0-99.0) 09/01/21 23:56 ABG O2 Content 16.8 (0.0-44) 09/01/21 23:56 ABG Base Excess 14.8 mmol/L (-2.0-3.0) H 09/01/21 23:56 ABG Hemoglobin 12.0 gm/dl (12.0-16.0) 09/01/21 23:56 ABG Carboxyhemoglobin 1.6 % (0.0-5.0) 09/01/21 23:56 ABG Methemoglobin 0.6 % (0.0-1.5) 09/01/21 23:56 Oxyhemoglobin 96.8 % (95.0-99.0) 09/01/21 23:56 FiO2 60 % 09/01/21 23:56 Sodium 135 mmol/L (137-145) L 09/20/21 04:32 Potassium 4.9 mmol/L (3.6-5.0) 09/20/21 04:32 Chloride 92.3 mmol/L (98-107) L 09/20/21 04:32 Carbon Dioxide 33 mmol/L (22-30) H 09/20/21 04:32 Anion Gap 15 mmol/L 09/20/21 04:32 BUN 18 mg/dL (7-17) H 09/20/21 04:32 Creatinine 0.2 mg/dL (0.6-1.2) L 09/20/21 04:32 Estimated GFR > 60 ml/min 09/20/21 04:32 BUN/Creatinine Ratio 90 % 09/20/21 04:32 Glucose 264 mg/dL (65-100) H 09/20/21 04:32 POC Glucose 193 mg/dL (70-105) H 09/24/21 16:12 Calcium 9.0 mg/dL (8.4-10.2) 09/20/21 04:32 Magnesium 2.10 mg/dL (1.7-2.3) 09/08/21 04:31 Total Bilirubin 0.30 mg/dL (0.1-1.2) 09/03/21 06:05 AST 29 units/L (5-40) 09/03/21 06:05 ALT 71 units/L (7-56) H 09/03/21 06:05 Alkaline Phosphatase 82 units/L (35-129) 09/03/21 06:05 NT-Pro-B Natriuret Pep 524.1 pg/mL (0-450) H 08/31/21 19:32 Total Protein 7.0 g/dL (6.3-8.2) 09/03/21 06:05 Albumin 3.8 g/dL (3.9-5) L 09/03/21 06:05 Albumin/Globulin Ratio 1.2 % 09/03/21 06:05 HCG, Qual Negative (Negative) 08/31/21 19:32 Urine Color Yellow (Yellow) 09/10/21 07:00 Urine Turbidity Cloudy (Clear) 09/10/21 07:00 Urine pH 7.0 (5.0-7.0) 09/10/21 07:00 Ur Specific Dequincy 1.022 (1.003-1.030) 09/10/21 07:00 Urine Protein <15 mg/dl mg/dL (Negative) 09/10/21 07:00 Urine Glucose (UA) >=500 mg/dL (Negative) 09/10/21 07:00 Urine Ketones Neg mg/dL (Negative) 09/10/21 07:00 Urine Blood Sm (Negative) 09/10/21 07:00 Urine Nitrite Neg (Negative) 09/10/21 07:00 Urine Bilirubin Neg (Negative) 09/10/21 07:00 Urine Urobilinogen < 2.0 mg/dL (<2.0) 09/10/21 07:00 Ur Leukocyte Esterase Mod (Negative) 09/10/21 07:00 Urine WBC (Auto) 24.0 /HPF (0.0-6.0) H 09/10/21 07:00 Urine RBC (Auto) 17.0 /HPF (0.0-6.0) 09/10/21 07:00 U Epithel Cells (Auto) 3.0 /HPF (0-13.0) 09/10/21 07:00 Urine Bacteria (Auto) 2+ /HPF (Negative) 09/10/21 07:00 Calcium Oxalate Crystal Few 09/10/21 07:00 Urine Mucus 1+ /HPF 09/10/21 07:00 Ur Yeast w Hyphae Few /HPF 09/10/21 07:00 Urine Yeast (Budding) Few /HPF 09/10/21 07:00 Amos/IV: Voiding Method External Female Catheter Active Medications - Current Medications Current Medications: Generic Name Dose Route Start Last Admin Trade Name Freq PRN Reason Stop Dose Admin Acetaminophen 650 mg 09/01/21 01:25 09/24/21 18:07 Acetaminophen 325 Mg Tab PO 650 mg Q4H PRN Administration Pain MILD(1-3)/Fever >100.5/[place] Albuterol 2.5 mg 09/01/21 01:25 09/14/21 14:56 Albuterol 2.5 Mg/3 Ml Nebu IH 2.5 mg Q3HRT PRN Administration Shortness Of Breath Alprazolam 1 mg 09/01/21 01:38 09/23/21 22:40 Alprazolam 1 Mg Tab PO 1 mg BID PRN Administration Agitation Clonidine HCl 0.2 mg 09/21/21 16:00 09/21/21 21:40 Clonidine Tts 0.2 Mg/24 Hr Patch TD 0.2 mg Sa TUTU Administration Dextrose 50 ml 09/01/21 01:25 Dextrose 50% In Water (25gm) 50 Ml Syringe IV Q30MIN PRN Hypoglycemia Protocol Famotidine 20 mg 09/01/21 10:00 09/24/21 11:26 Famotidine 20 Mg Tab PO 20 mg BID TUTU Administration Heparin Sodium (Porcine) 5,000 unit 09/01/21 06:00 09/24/21 14:43 Heparin 5,000 Unit/1 Ml Vial SUB-Q 5,000 unit Q8HR TUTU Administration Hydrocortisone Acetate 1 applic 09/21/21 15:00 Hydrocortisone 1% Cream 28.4gm TP Q8H PRN Skin Irritation Insulin Glargine 18 units 09/19/21 22:00 09/23/21 22:31 Insulin Glargine 100 Units/Ml SUB-Q 18 units QHS TUTU Administration Insulin Human Lispro 0 unit 09/01/21 07:30 09/24/21 18:02 Insulin Lispro 100 Unit/Ml SUB-Q 2 unit ACHS TUTU Administration Protocol Methylprednisolone Sodium Succinate 20 mg 09/18/21 22:00 09/24/21 14:43 Methylprednisolone Sod Succinate 40 Mg/1 Ml Inj IV 20 mg Q8HR TUTU Administration Ondansetron HCl 4 mg 09/01/21 01:25 09/05/21 15:12 Ondansetron 4 Mg/2 Ml Inj IV 4 mg Q8H PRN Administration Nausea And Vomiting Sodium Chloride 10 ml 09/01/21 10:00 09/24/21 11:26 Sodium Chloride 0.9% 10 Ml Flush Syringe IV 10 ml BID TUTU Administration Sodium Chloride 10 ml 09/01/21 01:25 09/24/21 14:43 Sodium Chloride 0.9% 10 Ml Flush Syringe IV 10 ml PRN PRN Administration LINE FLUSH Nutrition/Malnutrition Assess - Dietary Evaluation Nutrition/Malnutrition Findings: Nutrition Notes Start: 09/01/21 12:25 Freq: Status: Active Protocol: Document 09/16/21 15:34 SAQIB (Rec: 09/16/21 15:38 SAQIB [id number]) Nutrition Notes Initial or Follow up Brief Note Current Diet Consistent Carbohydrates Diet (since B 09/06). Height 5 ft 2 in Weight 54 kg [place] Body Weight (kg) 50.00 BMI 21.7 Weight change and time frame No body weight change reported . Weight Status Appropriate Subjective/Other Information RD consult on routine F/U on dietary tolerance. Pt's %PO intake of meals is Good (75-100%), according to ADL notes. Percent of energy/protein needs met: Prescribed Consistent Carbohydrates Diet provides for energy/protein needs (2, 061 Kcal/91 g) during LOS. Current % PO Good (75-100%) Nutrition Intervention Change Diet Order: Continue Consistent Carbohydrates Diet. Revisit per MD consult or patient Sign Off request: Additional Comments Continue monitoring food tolerance, %PO intake of meals and BM.
[2021-09-24] MEDS: INSULIN GLARGINE 100 UNITS/ML SUB-Q SCH (22:14)
[2021-09-24] MEDS: ALPRAZolam 1 MG TAB PO PRN (22:14)
[2021-09-25] MEDS: methylPREDNISolone Sod Succinate 40 MG/1 ML INJ IV SCH ×4 (05:58→22:48)
[2021-09-25] MEDS: HEPARIN 5,000 UNIT/1 ML VIAL SUB-Q SCH ×4 (05:58→22:48)
[2021-09-25] MEDS: INSULIN LISPRO 100 UNIT/ML SUB-Q SCH ×4 (07:50→22:49)
[2021-09-25] MEDS: FAMOTIDINE 20 MG TAB PO SCH ×2 (10:48→22:49)
[2021-09-25] MEDS: ACETAMINOPHEN 325 MG TAB PO PRN (11:04)
[2021-09-25] MEDS: ALPRAZolam 1 MG TAB PO PRN ×2 (11:05→22:48)
--- NOTE | 2021-09-25 17:50 | Progress Note ---
Assessment and Plan Assessment and plan: 50-year-old female patient was admitted with COVID-19 pneumonia severe hypoxic hypercapnic respiratory failure had a prolonged stay in the hospital for 3 to 4 months and was discharged on 08/28/2021 on home oxygen and long-term steroids and other supportive care, patient again was admitted on the stabilized and discharged on the . patient already has home oxygen and all the medications are needed. Patient readmitted 09/01/21 with acute hypoxic respiratory failure and altered level of consciousness, s/p BiPAP, chest x-ray gaseous distention of the stomach. Pulmonary following, patient also has generalized anxiety on Xanax. 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 Gomes PCR test is negative Severe hypoxic and hypercapnic respiratory failure, required BiPAP on admission Patient was on 10 L of nasal cannula oxygen/100% nonrebreather/BiPAP, currently on high flow O2 X-ray chest show moderate gaseous distention of the stomach severe diffuse bilateral chronic parenchymal opacities that have not changed chest x-ray Patient was recently discharged on on home 3 L oxygen CTA chest; no CT evidence of PE, diffuse severe bilateral mixed interstitial and alveolar opacities CT head without contrast; there is 2 small 2 to 3 mm focus of calcification along the lateral left frontal lobe which appears to be incidental, Patient is receiving currently high-dose Solu-Medrol therapy, per pulmonary --Abdominal distention with ileus Pulmonary recommended NG tube placement with intermittent suction for gastric distention Repeat abdomen x-ray 09/03 showed no gaseous distention, now tolerating diet -- IDDM (insulin dependent diabetes mellitus) Continue home insulin and coverage Follow hemoglobin A1c, SSI as needed --[place] (generalized anxiety disorder) Continue Xanax as necessary --Hypokalemia, repleted --hyperkalemia, s/p kayexalate --Uncontrolled blood sugars probably secondary to steroids, increase Lantus to 15 units subcu daily --Sepsis secondary to UTI/E. coli Completed treatment with Levaquin --DVT prophylaxis On Lovenox and GI prophylaxis Daily clinical course: 09/01/2021; on intermittent BiPAP, chest x-ray gaseous distention of stomach recommend, NG tube placement intermittent suction and supportive care Disposition monitor closely wean will oxygen;, 2 -4 to 5 L nasal cannula, and discharge when stable. Patient already has home oxygen 09/02: Remains hypoxic and hypercapnic, somnolent post Ativan, on high flow O2 30 to 40 L, high-dose Solu-Medrol and NG tube for gastric distention. wean FiO2 as tolerated and BiPAP as needed for the hypercapnia, recheck ABG. Discussed with the pulmonary and nursing staff. 09/03: Off BiPAP this morning, continue to follow serum glucose, patient on high -dose steroid, continue high flow O2 and wean off as tolerated. Repeat abdominal x-ray showed non significant normal bowel gas pattern. Will initiate on clear liquid diet, will monitor off NG tube. 09/04; continue to follow clinically, empiric steroid, wean off O2 as tolerated, patient remains on high flow O2. Will advance diet as tolerated. Continue to monitor serum blood glucose and adjust insulin doses accordingly. 09/05: Follow clinically, consistent carb diet, high-dose empiric steroid, wean off O2 as tolerated. Transfer out of intermediate care to [facility] with telemetry. 09/06: Remains on high flow O2 25 L, continue to provide supportive care, wean off O2 as tolerated, adjust serum blood glucose with insulin, tolerating consistent carb diet. 09/07/21: Continue to replete electrolytes and monitor. Wean off O2 as tolerated, guarded prognosis, continue empiric steroid. Follow clinically. 09/08/21; continue to replete and monitor potassium, wean off O2 as tolerated. Patient remains on 25 L high flow O2. Continue empiric steroid, follow clinically. 09/09/21; spiking temp, will order pancultures, repeat chest x-ray, guarded prognosis, remains on 25 L high flow O2, follow clinically 09/10; patient is afebrile, remains on high flow 25 L nasal cannula oxygen, wean as tolerated, patient already has home oxygen Wean aggressively as tolerated, if no improvement consider hospice 09/11; patient's urine cultures positive for gram-negative rods, will add Levaquin 750 mg IV daily, follow culture sensitivities and adjust as needed Patient is anxious, has intermittent panic episodes, continue Xanax, consult psych 09/12; urine cultures positive for E. coli, sensitivities include Levaquin, remains on high flow nasal cannula oxygen, wean as tolerated Consults and recommendations noted and appreciated 09/13; sepsis due to UTI E. coli, remains on high flow nasal cannula oxygen, wean as tolerated, psych evaluation noted no new recommendations 09/14/21: On HFNC 20 L/35% FiO2/95 O2 sats, wean as tolerated, continue current management 09/15/21; remains an HFNC oxygen, chronically ill looking. Consider LTAC placement, social issues 09/16/2021; on 30 L HFNC O2, wean as tolerated 09/17/2021; remains on HFNC 30 L/35% FiO2/94 O2 sats, steroids reduced to 40 mg every 8 hours, follow pulmonary recommendations Unable to consider LTAC, as patient is undocumented and no resources, DC planning per case management when stable 09/18/21; remains on 30 L high flow O2, case management social worker working on LTAC versus hospice placement. Continue to provide supportive care 09/19/21: Remains on high flow O2, potassium 5.7 today -ordered for Kayexalate. Will monitor BMP. Patient remains on high flow O2. Pending placement. 09/20/21: Remains on high flow O2, continue to monitor BMP. Multiple social issues, unable to find placement. Continue supportive care and wean off O2 as tolerated. Potassium 4.9 today. 09/21/21: unable to find placement. Continue supportive care and wean off O2 as tolerated. Remains on high flow O2. 09/22/21; Continue supportive care and wean off O2 as tolerated. Remains on high flow O2. Patient have no insurance, unable to wean off from O2. LTAC refused ,. executive manager working on placement. 09/23: Patient remains on high flow O2, wean off as tolerated. Pulmonary following. Patient need placement to LTAC or home with hospice. 09/24/2021: Patient is awake, alert and verbal. She has mild respiratory distress at rest with a tachypnea, remains on high flow oxygen at 35 L. She is currently bedbound. She has good strength in upper extremities but poor strength in both lower extremities. Spoke with her daughter who speaks fluent Spanish regarding her home hospice. Her daughter states that family does not want home hospice. Daughter further states that they're planning to take her home in [place] via private aircraft. She is in contact with the medical team in [place] and planning to send medical records there. Case management on the case for discharge planning. 09/25: Patient remains in mild to moderate respiratory distress at rest O2 is being aggressively weaned by respiratory team. 09/26: Patient remains in the mild to moderate respiratory distress at rest. O2 is being aggressively weaned by respiratory team. History Interval history: Patient is awake, alert and verbal. She has mild respiratory distress at rest with a tachypnea, O2 is being weaned aggressively. Currently on 15% Ventimask. Tolerating diet. Hospitalist Physical - Constitutional Vitals: Temp Pulse Resp BP Pulse Ox 97.9 F 102 H 18 124/78 99 09/25/21 15:06 09/25/21 15:06 09/25/21 15:06 09/25/21 15:06 09/25/21 16:40 General appearance: Present: mild distress, well-nourished, other (On high flow oxygen, alert and awake) - EENT Eyes: Present: PERRL, EOM intact ENT: clear oral mucosa - Neck Neck: Present: supple - Respiratory Respiratory effort: labored Respiratory: bilateral: diminished - Cardiovascular Rhythm: regular - Extremities Extremities: No edema - Abdominal General gastrointestinal: soft, non-tender, normal bowel sounds - Integumentary Integumentary: Absent: rash - Psychiatric Psychiatric: other (Anxious) - Neurologic Neurologic: other (Alert and oriented. Speech normal. Strength in upper extremities normal. Strength lower extremities 23/5.) Results - Labs CBC & Chem 7: 09/19/21 14:00 09/20/21 04:32 Labs: Laboratory Last Values WBC 9.6 K/mm3 (4.5-11.0) 09/19/21 14:00 RBC 4.71 M/mm3 (3.65-5.03) 09/19/21 14:00 Hgb 13.2 gm/dl (10.1-14.3) 09/19/21 14:00 Hct 42.9 % (30.3-42.9) 09/19/21 14:00 MCV 91 fl (79-97) 09/19/21 14:00 MCH 28 pg (28-32) 09/19/21 14:00 MCHC 31 % (30-34) 09/19/21 14:00 RDW 18.6 % (13.2-15.2) H 09/19/21 14:00 Plt Count 305 K/mm3 (140-440) 09/19/21 14:00 Lymph % (Auto) 12.3 % (13.4-35.0) L 09/08/21 04:31 [place] % (Auto) 6.6 % (0.0-7.3) 09/08/21 04:31 Eos % (Auto) 0.3 % (0.0-4.3) 09/08/21 04:31 Baso % (Auto) 1.7 % (0.0-1.8) 09/08/21 04:31 Lymph # (Auto) 1.0 K/mm3 (1.2-5.4) L 09/08/21 04:31 [place] # (Auto) 0.5 K/mm3 (0.0-0.8) 09/08/21 04:31 Eos # (Auto) 0.0 K/mm3 (0.0-0.4) 09/08/21 04:31 Baso # (Auto) 0.1 K/mm3 (0.0-0.1) 09/08/21 04:31 Add Manual Diff Complete 09/03/21 06:05 Total Counted 100 09/03/21 06:05 Seg Neutrophils % 79.1 % (40.0-70.0) H 09/08/21 04:31 Seg Neuts % (Manual) 94.0 % (40.0-70.0) H 09/03/21 06:05 Lymphocytes % (Manual) 3.0 % (13.4-35.0) L 09/03/21 06:05 Monocytes % (Manual) 3.0 % (0.0-7.3) 09/03/21 06:05 Nucleated RBC % Not Reportable 09/03/21 06:05 Seg Neutrophils # 6.5 K/mm3 (1.8-7.7) 09/08/21 04:31 Seg Neutrophils # Man 7.3 K/mm3 (1.8-7.7) 09/03/21 06:05 Band Neutrophils # 0.0 K/mm3 09/03/21 06:05 Lymphocytes # (Manual) 0.2 K/mm3 (1.2-5.4) L 09/03/21 06:05 Abs React Lymphs (Man) 0.0 K/mm3 09/03/21 06:05 Monocytes # (Manual) 0.2 K/mm3 (0.0-0.8) 09/03/21 06:05 Eosinophils # (Manual) 0.0 K/mm3 (0.0-0.4) 09/03/21 06:05 Basophils # (Manual) 0.0 K/mm3 (0.0-0.1) 09/03/21 06:05 Metamyelocytes # 0.0 K/mm3 09/03/21 06:05 Myelocytes # 0.0 K/mm3 09/03/21 06:05 Promyelocytes # 0.0 K/mm3 09/03/21 06:05 Blast Cells # 0.0 K/mm3 09/03/21 06:05 WBC Morphology Not Reportable 09/03/21 06:05 Hypersegmented Neuts Not Reportable 09/03/21 06:05 Hyposegmented Neuts Not Reportable 09/03/21 06:05 Hypogranular Neuts Not Reportable 09/03/21 06:05 Smudge Cells Not Reportable 09/03/21 06:05 Toxic Granulation Not Reportable 09/03/21 06:05 Toxic Vacuolation Not Reportable 09/03/21 06:05 Dohle Bodies Not Reportable 09/03/21 06:05 Pelger-Huet Anomaly Not Reportable 09/03/21 06:05 Janelle Rods Not Reportable 09/03/21 06:05 Platelet Estimate Consistent w auto 09/03/21 06:05 Clumped Platelets Not Reportable 09/03/21 06:05 Plt Clumps, EDTA Not Reportable 09/03/21 06:05 Large Platelets Not Reportable 09/03/21 06:05 Giant Platelets Not Reportable 09/03/21 06:05 Platelet Satelliting Not Reportable 09/03/21 06:05 Plt Morphology Comment Not Reportable 09/03/21 06:05 RBC Morphology Normal 09/03/21 06:05 Dimorphic RBCs Not Reportable 09/03/21 06:05 Polychromasia Not Reportable 09/03/21 06:05 Hypochromasia Not Reportable 09/03/21 06:05 Poikilocytosis 1+ 09/03/21 06:05 Anisocytosis Not Reportable 09/03/21 06:05 Microcytosis Not Reportable 09/03/21 06:05 Macrocytosis Not Reportable 09/03/21 06:05 Spherocytes Not Reportable 09/03/21 06:05 Pappenheimer Bodies Not Reportable 09/03/21 06:05 Sickle Cells Not Reportable 09/03/21 06:05 Target Cells Not Reportable 09/03/21 06:05 Tear Drop Cells Not Reportable 09/03/21 06:05 Ovalocytes Not Reportable 09/03/21 06:05 Stomatocytes 3+ 09/03/21 06:05 Helmet Cells Not Reportable 09/03/21 06:05 [place] Bodies Not Reportable 09/03/21 06:05 [place] Rings Not Reportable 09/03/21 06:05 [place] Cells Not Reportable 09/03/21 06:05 Bite Cells Not Reportable 09/03/21 06:05 Crenated Cell Not Reportable 09/03/21 06:05 Elliptocytes Not Reportable 09/03/21 06:05 Acanthocytes (Spur) Not Reportable 09/03/21 06:05 Rouleaux Not Reportable 09/03/21 06:05 Hemoglobin C Crystals Not Reportable 09/03/21 06:05 Schistocytes Not Reportable 09/03/21 06:05 Malaria parasites Not Reportable 09/03/21 06:05 Justin Bodies Not Reportable 09/03/21 06:05 Hem Pathologist Commnt No 09/03/21 06:05 D-Dimer 710.59 ng/mlDDU (0-234) H 08/31/21 19:32 ABG pH 7.240 pH Units (7.350-7.450) L 09/01/21 23:56 ABG pCO2 111.3 mm Hg 09/01/21 23:56 ABG pO2 198.0 mm Hg (80.0-90.0) H 09/01/21 23:56 ABG HCO3 46.6 mmol/L (20.0-26.0) H 09/01/21 23:56 ABG O2 Saturation 99.0 % (95.0-99.0) 09/01/21 23:56 ABG O2 Content 16.8 (0.0-44) 09/01/21 23:56 ABG Base Excess 14.8 mmol/L (-2.0-3.0) H 09/01/21 23:56 ABG Hemoglobin 12.0 gm/dl (12.0-16.0) 09/01/21 23:56 ABG Carboxyhemoglobin 1.6 % (0.0-5.0) 09/01/21 23:56 ABG Methemoglobin 0.6 % (0.0-1.5) 09/01/21 23:56 Oxyhemoglobin 96.8 % (95.0-99.0) 09/01/21 23:56 FiO2 60 % 09/01/21 23:56 Sodium 135 mmol/L (137-145) L 09/20/21 04:32 Potassium 4.9 mmol/L (3.6-5.0) 09/20/21 04:32 Chloride 92.3 mmol/L (98-107) L 09/20/21 04:32 Carbon Dioxide 33 mmol/L (22-30) H 09/20/21 04:32 Anion Gap 15 mmol/L 09/20/21 04:32 BUN 18 mg/dL (7-17) H 09/20/21 04:32 Creatinine 0.2 mg/dL (0.6-1.2) L 09/20/21 04:32 Estimated GFR > 60 ml/min 09/20/21 04:32 BUN/Creatinine Ratio 90 % 09/20/21 04:32 Glucose 264 mg/dL (65-100) H 09/20/21 04:32 POC Glucose 165 mg/dL (70-105) H 09/25/21 15:04 Calcium 9.0 mg/dL (8.4-10.2) 09/20/21 04:32 Magnesium 2.10 mg/dL (1.7-2.3) 09/08/21 04:31 Total Bilirubin 0.30 mg/dL (0.1-1.2) 09/03/21 06:05 AST 29 units/L (5-40) 09/03/21 06:05 ALT 71 units/L (7-56) H 09/03/21 06:05 Alkaline Phosphatase 82 units/L (35-129) 09/03/21 06:05 NT-Pro-B Natriuret Pep 524.1 pg/mL (0-450) H 08/31/21 19:32 Total Protein 7.0 g/dL (6.3-8.2) 09/03/21 06:05 Albumin 3.8 g/dL (3.9-5) L 09/03/21 06:05 Albumin/Globulin Ratio 1.2 % 09/03/21 06:05 HCG, Qual Negative (Negative) 08/31/21 19:32 Urine Color Yellow (Yellow) 09/10/21 07:00 Urine Turbidity Cloudy (Clear) 09/10/21 07:00 Urine pH 7.0 (5.0-7.0) 09/10/21 07:00 Ur Specific [place] 1.022 (1.003-1.030) 09/10/21 07:00 Urine Protein <15 mg/dl mg/dL (Negative) 09/10/21 07:00 Urine Glucose (UA) >=500 mg/dL (Negative) 09/10/21 07:00 Urine Ketones Neg mg/dL (Negative) 09/10/21 07:00 Urine Blood Sm (Negative) 09/10/21 07:00 Urine Nitrite Neg (Negative) 09/10/21 07:00 Urine Bilirubin Neg (Negative) 09/10/21 07:00 Urine Urobilinogen < 2.0 mg/dL (<2.0) 09/10/21 07:00 Ur Leukocyte Esterase Mod (Negative) 09/10/21 07:00 Urine WBC (Auto) 24.0 /HPF (0.0-6.0) H 09/10/21 07:00 Urine RBC (Auto) 17.0 /HPF (0.0-6.0) 09/10/21 07:00 U Epithel Cells (Auto) 3.0 /HPF (0-13.0) 09/10/21 07:00 Urine Bacteria (Auto) 2+ /HPF (Negative) 09/10/21 07:00 Calcium Oxalate Crystal Few 09/10/21 07:00 Urine Mucus 1+ /HPF 09/10/21 07:00 Ur Yeast w [place]pha[place] Few /HPF 09/10/21 07:00 Urine Yeast (Budding) Few /HPF 09/10/21 07:00 Amos/IV: Voiding Method External Female Catheter Active Medications - Current Medications Current Medications: Generic Name Dose Route Start Last Admin Trade Name Freq PRN Reason Stop Dose Admin Acetaminophen 650 mg 09/01/21 01:25 09/25/21 11:04 Acetaminophen 325 Mg Tab PO 650 mg Q4H PRN Administration Pain MILD(1-3)/Fever >100.5/[place] Albuterol 2.5 mg 09/01/21 01:25 09/14/21 14:56 Albuterol 2.5 Mg/3 Ml Nebu IH 2.5 mg Q3HRT PRN Administration Shortness Of Breath Alprazolam 1 mg 09/01/21 01:38 09/25/21 11:05 Alprazolam 1 Mg Tab PO 1 mg BID PRN Administration Agitation Clonidine HCl 0.2 mg 09/21/21 16:00 09/21/21 21:40 Clonidine Tts 0.2 Mg/24 Hr Patch TD 0.2 mg Sa TUTU Administration Dextrose 50 ml 09/01/21 01:25 Dextrose 50% In Water (25gm) 50 Ml Syringe IV Q30MIN PRN Hypoglycemia Protocol Famotidine 20 mg 09/01/21 10:00 09/25/21 10:48 Famotidine 20 Mg Tab PO 20 mg BID TUTU Administration Heparin Sodium (Porcine) 5,000 unit 09/01/21 06:00 09/25/21 14:37 Heparin 5,000 Unit/1 Ml Vial SUB-Q Not Given Q8HR TUTU Hydrocortisone Acetate 1 applic 09/21/21 15:00 Hydrocortisone 1% Cream 28.4gm TP Q8H PRN Skin Irritation Insulin Human Lispro 0 unit 09/01/21 07:30 09/25/21 16:13 Insulin Lispro 100 Unit/Ml SUB-Q 2 unit ACHS TUTU Administration Protocol Methylprednisolone Sodium Succinate 20 mg 09/18/21 22:00 09/25/21 14:37 Methylprednisolone Sod Succinate 40 Mg/1 Ml Inj IV Not Given Q8HR [facility] Ondansetron HCl 4 mg 09/01/21 01:25 09/05/21 15:12 Ondansetron 4 Mg/2 Ml Inj IV 4 mg Q8H PRN Administration Nausea And Vomiting Sodium Chloride 10 ml 09/01/21 10:00 09/25/21 10:49 Sodium Chloride 0.9% 10 Ml Flush Syringe IV 10 ml BID TUTU Administration Sodium Chloride 10 ml 09/01/21 01:25 09/24/21 14:43 Sodium Chloride 0.9% 10 Ml Flush Syringe IV 10 ml PRN PRN Administration LINE FLUSH Nutrition/Malnutrition Assess - Dietary Evaluation Nutrition/Malnutrition Findings: Nutrition Notes Start: 12/19/21 12:25 Freq: Status: Active Protocol: Document 09/16/21 15:34 SAQIB (Rec: 09/16/21 15:38 SAQIB [id number]) Nutrition Notes Initial or Follow up Brief Note Current Diet Consistent Carbohydrates Diet (since B 09/06). Height 5 ft 2 in Weight 54 kg [place] Body Weight (kg) 50.00 BMI 21.7 Weight change and time frame No body weight change reported . Weight Status Appropriate Subjective/Other Information RD consult on routine F/U on dietary tolerance. Pt's %PO intake of meals is Good (75-100%), according to ADL notes. Percent of energy/protein needs met: Prescribed Consistent Carbohydrates Diet provides for energy/protein needs (2, 061 Kcal/91 g) during LOS. Current % PO Good (75-100%) Nutrition Intervention Change Diet Order: Continue Consistent Carbohydrates Diet. Revisit per MD consult or patient Sign Off request: Additional Comments Continue monitoring food tolerance, %PO intake of meals and BM.
[2021-09-26] MEDS: methylPREDNISolone Sod Succinate 40 MG/1 ML INJ IV SCH ×2 (05:37→22:47)
[2021-09-26] MEDS: HEPARIN 5,000 UNIT/1 ML VIAL SUB-Q SCH ×3 (05:38→22:00)
[2021-09-26] MEDS: INSULIN LISPRO 100 UNIT/ML SUB-Q SCH ×4 (09:38→22:46)
[2021-09-26] MEDS: FAMOTIDINE 20 MG TAB PO SCH ×2 (09:38→22:46)
[2021-09-26] MEDS: ALPRAZolam 1 MG TAB PO PRN ×2 (09:58→22:50)
--- NOTE | 2021-09-26 11:53 | Progress Note ---
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 Family plans to transport patient to [place] via [facility]? Encourage aggressive weaning of FIO2. Will change steroids today. 09/24/21: WIll change to 40 of prednisone daily starting today. Wean HFNC. 09/20/21: Currently on 20q8, which is about 60 of prednisone daily. Suggest dropping to either 20q12 or change to 40 of prednisone daily starting tomorrow. Wean FiO2 for sats >88%. Will see as needed over the weekend. I am back on Thursday. 09/18/21: Lasix made no improvement. So will not repeat. Will drop steroids to 20q8 starting now. 09/16/21: Lasix 20mg IV x1 today. Prone as tolerated. Wean Flow and FiO2 for sats >88% 09/12/21: No new recs. Will drop steroids to 40q8 09/10/21: Please be more aggressive with oxygen weaning. Will consider weaning steroids again or Thursday. 09/08/21: Continue steroids at current dosing. Wean Fio2 for sats >88%. 09/06/21: Will drop steroids to 60 q8 starting now. 09/04/21: Will start to taper steroids today. Continue to wean FiO2 as tolerated. Anxiety control. High dose steroids Anxiety therapy Wean FiO2 as tolerated ABG not indicated currently as she is sleepy from IV ativan administered because she is NPO and could not get her xanax Subjective Date of service: 09/26/21 Interval history: Weaned to 15 liter venturi mask at 50%. Last documented sat by RT was 99%. Under vitals 97% Objective Vital Signs - 12hr 09/26/21 09/26/21 09/26/21 02:00 02:14 03:48 Temperature 97.2 F L Pulse Rate 95 H Respiratory 21 Rate Blood Pressure 109/65 O2 Sat by Pulse 99 100 100 Oximetry 09/26/21 09/26/21 09/26/21 07:35 08:10 11:17 Temperature 98.6 F 98.2 F Pulse Rate 90 95 H Respiratory 16 16 Rate Blood Pressure 113/65 116/72 O2 Sat by Pulse 100 100 97 Oximetry Constitutional: no acute distress ENT: oropharynx moist Neck: supple Ascultation: Bilateral: diminished breath sounds Cardiovascular: regular rate and rhythm Gastrointestinal: normoactive bowel sounds, soft, non-tender Integumentary: normal Extremities: no cyanosis Neurologic: normal mental status CBC and BMP: 09/19/21 14:00 09/20/21 04:32 ABG, PT/INR, D-dimer: ABG ABG pH 7.240 pH Units (7.350-7.450) L 09/01/21 23:56 ABG pCO2 111.3 mm Hg 09/01/21 23:56 ABG pO2 198.0 mm Hg (80.0-90.0) H 09/01/21 23:56 ABG O2 Saturation 99.0 % (95.0-99.0) 09/01/21 23:56 PT/INR, D-dimer D-Dimer 710.59 ng/mlDDU (0-234) H 08/31/21 19:32 Abnormal lab findings: Abnormal Labs 08/31/21 08/31/21 08/31/21 19:32 19:32 19:32 Hct RDW 16.4 H Lymph % (Auto) [place] % (Auto) 9.0 H Lymph # (Auto) [place] # (Auto) 1.0 H Seg Neutrophils % 76.2 H Seg Neuts % (Manual) Lymphocytes % (Manual) Seg Neutrophils # 8.3 H Lymphocytes # (Manual) D-Dimer 710.59 H ABG pH ABG pO2 ABG HCO3 ABG O2 Saturation ABG Base Excess Sodium Potassium Chloride 92.7 L Carbon Dioxide 36 H BUN Creatinine 0.4 L D Glucose 249 H POC Glucose Calcium ALT NT-Pro-B Natriuret Pep Albumin Urine WBC (Auto) 08/31/21 08/31/21 09/01/21 19:32 21:05 09:24 Hct RDW Lymph % (Auto) [place] % (Auto) Lymph # (Auto) [place] # (Auto) Seg Neutrophils % Seg Neuts % (Manual) Lymphocytes % (Manual) Seg Neutrophils # Lymphocytes # (Manual) D-Dimer ABG pH 7.244 L ABG pO2 307.7 H ABG HCO3 47.9 H ABG O2 Saturation 99.4 H ABG Base Excess 16.0 H Sodium Potassium Chloride Carbon Dioxide BUN Creatinine Glucose POC Glucose 106 H Calcium ALT NT-Pro-B Natriuret Pep 524.1 H Albumin Urine WBC (Auto) 09/01/21 09/01/21 09/01/21 13:39 16:22 23:56 Hct RDW Lymph % (Auto) [place] % (Auto) Lymph # (Auto) [place] # (Auto) Seg Neutrophils % Seg Neuts % (Manual) Lymphocytes % (Manual) Seg Neutrophils # Lymphocytes # (Manual) D-Dimer ABG pH 7.240 L ABG pO2 198.0 H ABG HCO3 46.6 H ABG O2 Saturation ABG Base Excess 14.8 H Sodium Potassium Chloride Carbon Dioxide BUN Creatinine Glucose POC Glucose 154 H 188 H Calcium ALT NT-Pro-B Natriuret Pep Albumin Urine WBC (Auto) 09/02/21 09/02/21 09/02/21 01:49 07:22 07:22 Hct RDW 16.4 H Lymph % (Auto) [place] % (Auto) Lymph # (Auto) [place] # (Auto) Seg Neutrophils % Seg Neuts % (Manual) 97.0 H Lymphocytes % (Manual) 2.0 L Seg Neutrophils # Lymphocytes # (Manual) 0.1 L D-Dimer ABG pH ABG pO2 ABG HCO3 ABG O2 Saturation ABG Base Excess Sodium Potassium Chloride 82.7 L Carbon Dioxide 41 H* BUN 21 H Creatinine 0.3 L Glucose 198 H POC Glucose 132 H Calcium ALT NT-Pro-B Natriuret Pep Albumin Urine WBC (Auto) 09/02/21 09/02/21 09/02/21 08:29 11:27 16:59 Hct RDW Lymph % (Auto) [place] % (Auto) Lymph # (Auto) [place] # (Auto) Seg Neutrophils % Seg Neuts % (Manual) Lymphocytes % (Manual) Seg Neutrophils # Lymphocytes # (Manual) D-Dimer ABG pH ABG pO2 ABG HCO3 ABG O2 Saturation ABG Base Excess Sodium Potassium Chloride Carbon Dioxide BUN Creatinine Glucose POC Glucose 201 H 232 H 118 H Calcium ALT NT-Pro-B Natriuret Pep Albumin Urine WBC (Auto) 09/02/21 09/03/21 09/03/21 22:08 06:05 06:05 Hct RDW 16.5 H Lymph % (Auto) [place] % (Auto) Lymph # (Auto) [place] # (Auto) Seg Neutrophils % Seg Neuts % (Manual) 94.0 H Lymphocytes % (Manual) 3.0 L Seg Neutrophils # Lymphocytes # (Manual) 0.2 L D-Dimer ABG pH ABG pO2 ABG HCO3 ABG O2 Saturation ABG Base Excess Sodium Potassium Chloride 79.3 L Carbon Dioxide 52 H* D BUN 27 H Creatinine 0.2 L Glucose 228 H POC Glucose 241 H Calcium 10.4 H ALT 71 H NT-Pro-B Natriuret Pep Albumin 3.8 L Urine WBC (Auto) 09/03/21 09/03/21 09/03/21 07:53 11:37 15:52 Hct RDW Lymph % (Auto) [place] % (Auto) Lymph # (Auto) [place] # (Auto) Seg Neutrophils % Seg Neuts % (Manual) Lymphocytes % (Manual) Seg Neutrophils # Lymphocytes # (Manual) D-Dimer ABG pH ABG pO2 ABG HCO3 ABG O2 Saturation ABG Base Excess Sodium Potassium Chloride Carbon Dioxide BUN Creatinine Glucose POC Glucose 241 H 202 H 284 H Calcium ALT NT-Pro-B Natriuret Pep Albumin Urine WBC (Auto) 09/03/21 09/04/21 09/04/21 22:07 08:33 11:16 Hct RDW Lymph % (Auto) [place] % (Auto) Lymph # (Auto) [place] # (Auto) Seg Neutrophils % Seg Neuts % (Manual) Lymphocytes % (Manual) Seg Neutrophils # Lymphocytes # (Manual) D-Dimer ABG pH ABG pO2 ABG HCO3 ABG O2 Saturation ABG Base Excess Sodium Potassium Chloride Carbon Dioxide BUN Creatinine Glucose POC Glucose 311 H 232 H 356 H Calcium ALT NT-Pro-B Natriuret Pep Albumin Urine WBC (Auto) 09/04/21 09/04/21 09/05/21 17:10 23:05 08:08 Hct RDW Lymph % (Auto) [place] % (Auto) Lymph # (Auto) [place] # (Auto) Seg Neutrophils % Seg Neuts % (Manual) Lymphocytes % (Manual) Seg Neutrophils # Lymphocytes # (Manual) D-Dimer ABG pH ABG pO2 ABG HCO3 ABG O2 Saturation ABG Base Excess Sodium Potassium Chloride Carbon Dioxide BUN Creatinine Glucose POC Glucose 328 H 150 H 342 H Calcium ALT NT-Pro-B Natriuret Pep Albumin Urine WBC (Auto) 09/05/21 09/05/21 09/05/21 11:04 13:23 13:23 Hct RDW 17.1 H Lymph % (Auto) [place] % (Auto) Lymph # (Auto) [place] # (Auto) Seg Neutrophils % Seg Neuts % (Manual) Lymphocytes % (Manual) Seg Neutrophils # Lymphocytes # (Manual) D-Dimer ABG pH ABG pO2 ABG HCO3 ABG O2 Saturation ABG Base Excess Sodium Potassium 2.6 L* D Chloride 74.4 L Carbon Dioxide 46 H* BUN Creatinine 0.3 L Glucose 389 H POC Glucose 395 H Calcium ALT NT-Pro-B Natriuret Pep Albumin Urine WBC (Auto) 09/05/21 09/05/21 09/06/21 16:22 21:09 08:02 Hct RDW Lymph % (Auto) [place] % (Auto) Lymph # (Auto) [place] # (Auto) Seg Neutrophils % Seg Neuts % (Manual) Lymphocytes % (Manual) Seg Neutrophils # Lymphocytes # (Manual) D-Dimer ABG pH ABG pO2 ABG HCO3 ABG O2 Saturation ABG Base Excess Sodium Potassium Chloride Carbon Dioxide BUN Creatinine Glucose POC Glucose 195 H 243 H 119 H Calcium ALT NT-Pro-B Natriuret Pep Albumin Urine WBC (Auto) 09/06/21 09/06/21 09/06/21 11:00 11:19 16:06 Hct RDW Lymph % (Auto) [place] % (Auto) Lymph # (Auto) [place] # (Auto) Seg Neutrophils % Seg Neuts % (Manual) Lymphocytes % (Manual) Seg Neutrophils # Lymphocytes # (Manual) D-Dimer ABG pH ABG pO2 ABG HCO3 ABG O2 Saturation ABG Base Excess Sodium 136 L Potassium Chloride 78.3 L Carbon Dioxide 47 H* BUN Creatinine 0.3 L Glucose 354 H POC Glucose 309 H 381 H Calcium ALT NT-Pro-B Natriuret Pep Albumin Urine WBC (Auto) 09/06/21 09/07/21 09/07/21 22:25 11:11 16:50 Hct RDW Lymph % (Auto) [place] % (Auto) Lymph # (Auto) [place] # (Auto) Seg Neutrophils % Seg Neuts % (Manual) Lymphocytes % (Manual) Seg Neutrophils # Lymphocytes # (Manual) D-Dimer ABG pH ABG pO2 ABG HCO3 ABG O2 Saturation ABG Base Excess Sodium Potassium Chloride Carbon Dioxide BUN Creatinine Glucose POC Glucose 217 H 442 H 222 H Calcium ALT NT-Pro-B Natriuret Pep Albumin Urine WBC (Auto) 09/07/21 09/08/21 09/08/21 21:52 04:31 04:31 Hct 44.9 H RDW 17.2 H Lymph % (Auto) 12.3 L [place] % (Auto) Lymph # (Auto) 1.0 L [place] # (Auto) Seg Neutrophils % 79.1 H Seg Neuts % (Manual) Lymphocytes % (Manual) Seg Neutrophils # Lymphocytes # (Manual) D-Dimer ABG pH ABG pO2 ABG HCO3 ABG O2 Saturation ABG Base Excess Sodium Potassium 2.8 L* D Chloride 87.6 L Carbon Dioxide 45 H* BUN Creatinine 0.2 L Glucose 46 L POC Glucose 360 H Calcium ALT NT-Pro-B Natriuret Pep Albumin Urine WBC (Auto) 09/08/21 09/08/21 09/08/21 05:25 05:53 11:50 Hct RDW Lymph % (Auto) [place] % (Auto) Lymph # (Auto) [place] # (Auto) Seg Neutrophils % Seg Neuts % (Manual) Lymphocytes % (Manual) Seg Neutrophils # Lymphocytes # (Manual) D-Dimer ABG pH ABG pO2 ABG HCO3 ABG O2 Saturation ABG Base Excess Sodium Potassium Chloride Carbon Dioxide BUN Creatinine Glucose POC Glucose 39 L 64 L 280 H Calcium ALT NT-Pro-B Natriuret Pep Albumin Urine WBC (Auto) 09/08/21 09/08/21 09/09/21 16:20 21:32 07:20 Hct RDW Lymph % (Auto) [place] % (Auto) Lymph # (Auto) [place] # (Auto) Seg Neutrophils % Seg Neuts % (Manual) Lymphocytes % (Manual) Seg Neutrophils # Lymphocytes # (Manual) D-Dimer ABG pH ABG pO2 ABG HCO3 ABG O2 Saturation ABG Base Excess Sodium Potassium Chloride Carbon Dioxide BUN Creatinine Glucose POC Glucose 256 H 203 H 194 H Calcium ALT NT-Pro-B Natriuret Pep Albumin Urine WBC (Auto) 09/09/21 09/09/21 09/09/21 07:50 11:13 16:20 Hct RDW Lymph % (Auto) [place] % (Auto) Lymph # (Auto) [place] # (Auto) Seg Neutrophils % Seg Neuts % (Manual) Lymphocytes % (Manual) Seg Neutrophils # Lymphocytes # (Manual) D-Dimer ABG pH ABG pO2 ABG HCO3 ABG O2 Saturation ABG Base Excess Sodium Potassium Chloride 88.8 L Carbon Dioxide 39 H BUN Creatinine < 0.2 L Glucose 197 H POC Glucose 258 H 231 H Calcium ALT NT-Pro-B Natriuret Pep Albumin Urine WBC (Auto) 09/09/21 09/10/21 09/10/21 22:17 07:00 08:02 Hct RDW Lymph % (Auto) [place] % (Auto) Lymph # (Auto) [place] # (Auto) Seg Neutrophils % Seg Neuts % (Manual) Lymphocytes % (Manual) Seg Neutrophils # Lymphocytes # (Manual) D-Dimer ABG pH ABG pO2 ABG HCO3 ABG O2 Saturation ABG Base Excess Sodium Potassium Chloride Carbon Dioxide BUN Creatinine Glucose POC Glucose 222 H 213 H Calcium ALT NT-Pro-B Natriuret Pep Albumin Urine WBC (Auto) 24.0 H 09/10/21 09/10/21 09/10/21 11:22 15:49 22:08 Hct RDW Lymph % (Auto) [place] % (Auto) Lymph # (Auto) [place] # (Auto) Seg Neutrophils % Seg Neuts % (Manual) Lymphocytes % (Manual) Seg Neutrophils # Lymphocytes # (Manual) D-Dimer ABG pH ABG pO2 ABG HCO3 ABG O2 Saturation ABG Base Excess Sodium Potassium Chloride Carbon Dioxide BUN Creatinine Glucose POC Glucose 241 H 201 H 212 H Calcium ALT NT-Pro-B Natriuret Pep Albumin Urine WBC (Auto) 09/11/21 09/11/21 09/11/21 08:01 11:21 16:41 Hct RDW Lymph % (Auto) [place] % (Auto) Lymph # (Auto) [place] # (Auto) Seg Neutrophils % Seg Neuts % (Manual) Lymphocytes % (Manual) Seg Neutrophils # Lymphocytes # (Manual) D-Dimer ABG pH ABG pO2 ABG HCO3 ABG O2 Saturation ABG Base Excess Sodium Potassium Chloride Carbon Dioxide BUN Creatinine Glucose POC Glucose 207 H 265 H 234 H Calcium ALT NT-Pro-B Natriuret Pep Albumin Urine WBC (Auto) 09/11/21 09/12/21 09/12/21 22:09 08:38 11:28 Hct RDW Lymph % (Auto) [place] % (Auto) Lymph # (Auto) [place] # (Auto) Seg Neutrophils % Seg Neuts % (Manual) Lymphocytes % (Manual) Seg Neutrophils # Lymphocytes # (Manual) D-Dimer ABG pH ABG pO2 ABG HCO3 ABG O2 Saturation ABG Base Excess Sodium Potassium Chloride Carbon Dioxide BUN Creatinine Glucose POC Glucose 293 H 222 H 326 H Calcium ALT NT-Pro-B Natriuret Pep Albumin Urine WBC (Auto) 09/12/21 09/12/21 09/13/21 16:25 21:45 07:41 Hct RDW Lymph % (Auto) [place] % (Auto) Lymph # (Auto) [place] # (Auto) Seg Neutrophils % Seg Neuts % (Manual) Lymphocytes % (Manual) Seg Neutrophils # Lymphocytes # (Manual) D-Dimer ABG pH ABG pO2 ABG HCO3 ABG O2 Saturation ABG Base Excess Sodium Potassium Chloride Carbon Dioxide BUN Creatinine Glucose POC Glucose 130 H 191 H 165 H Calcium ALT NT-Pro-B Natriuret Pep Albumin Urine WBC (Auto) 09/13/21 09/13/21 09/13/21 11:12 16:59 22:01 Hct RDW Lymph % (Auto) [place] % (Auto) Lymph # (Auto) [place] # (Auto) Seg Neutrophils % Seg Neuts % (Manual) Lymphocytes % (Manual) Seg Neutrophils # Lymphocytes # (Manual) D-Dimer ABG pH ABG pO2 ABG HCO3 ABG O2 Saturation ABG Base Excess Sodium Potassium Chloride Carbon Dioxide BUN Creatinine Glucose POC Glucose 263 H 162 H 276 H Calcium ALT NT-Pro-B Natriuret Pep Albumin Urine WBC (Auto) 09/14/21 09/14/21 09/14/21 08:12 12:28 16:30 Hct RDW Lymph % (Auto) [place] % (Auto) Lymph # (Auto) [place] # (Auto) Seg Neutrophils % Seg Neuts % (Manual) Lymphocytes % (Manual) Seg Neutrophils # Lymphocytes # (Manual) D-Dimer ABG pH ABG pO2 ABG HCO3 ABG O2 Saturation ABG Base Excess Sodium Potassium Chloride Carbon Dioxide BUN Creatinine Glucose POC Glucose 179 H 212 H 227 H Calcium ALT NT-Pro-B Natriuret Pep Albumin Urine WBC (Auto) 09/14/21 09/15/21 09/15/21 22:56 12:12 18:05 Hct RDW Lymph % (Auto) [place] % (Auto) Lymph # (Auto) [place] # (Auto) Seg Neutrophils % Seg Neuts % (Manual) Lymphocytes % (Manual) Seg Neutrophils # Lymphocytes # (Manual) D-Dimer ABG pH ABG pO2 ABG HCO3 ABG O2 Saturation ABG Base Excess Sodium Potassium Chloride Carbon Dioxide BUN Creatinine Glucose POC Glucose 275 H 297 H 247 H Calcium ALT NT-Pro-B Natriuret Pep Albumin Urine WBC (Auto) 09/15/21 09/16/21 09/16/21 22:21 07:51 11:22 Hct RDW Lymph % (Auto) [place] % (Auto) Lymph # (Auto) [place] # (Auto) Seg Neutrophils % Seg Neuts % (Manual) Lymphocytes % (Manual) Seg Neutrophils # Lymphocytes # (Manual) D-Dimer ABG pH ABG pO2 ABG HCO3 ABG O2 Saturation ABG Base Excess Sodium Potassium Chloride Carbon Dioxide BUN Creatinine Glucose POC Glucose 309 H 196 H 278 H Calcium ALT NT-Pro-B Natriuret Pep Albumin Urine WBC (Auto) 09/16/21 09/16/21 09/17/21 16:10 21:56 07:45 Hct RDW Lymph % (Auto) [place] % (Auto) Lymph # (Auto) [place] # (Auto) Seg Neutrophils % Seg Neuts % (Manual) Lymphocytes % (Manual) Seg Neutrophils # Lymphocytes # (Manual) D-Dimer ABG pH ABG pO2 ABG HCO3 ABG O2 Saturation ABG Base Excess Sodium Potassium Chloride Carbon Dioxide BUN Creatinine Glucose POC Glucose 264 H 246 H 174 H Calcium ALT NT-Pro-B Natriuret Pep Albumin Urine WBC (Auto) 09/17/21 09/17/21 09/17/21 11:25 15:43 21:19 Hct RDW Lymph % (Auto) [place] % (Auto) Lymph # (Auto) [place] # (Auto) Seg Neutrophils % Seg Neuts % (Manual) Lymphocytes % (Manual) Seg Neutrophils # Lymphocytes # (Manual) D-Dimer ABG pH ABG pO2 ABG HCO3 ABG O2 Saturation ABG Base Excess Sodium Potassium Chloride Carbon Dioxide BUN Creatinine Glucose POC Glucose 275 H 242 H 255 H Calcium ALT NT-Pro-B Natriuret Pep Albumin Urine WBC (Auto) 09/18/21 09/18/21 09/18/21 08:00 11:50 17:30 Hct RDW Lymph % (Auto) [place] % (Auto) Lymph # (Auto) [place] # (Auto) Seg Neutrophils % Seg Neuts % (Manual) Lymphocytes % (Manual) Seg Neutrophils # Lymphocytes # (Manual) D-Dimer ABG pH ABG pO2 ABG HCO3 ABG O2 Saturation ABG Base Excess Sodium Potassium Chloride Carbon Dioxide BUN Creatinine Glucose POC Glucose 170 H 244 H 218 H Calcium ALT NT-Pro-B Natriuret Pep Albumin Urine WBC (Auto) 01/05/22 01/06/22 01/06/22 22:32 12:20 14:00 Hct RDW 18.6 H Lymph % (Auto) [place] % (Auto) Lymph # (Auto) [place] # (Auto) Seg Neutrophils % Seg Neuts % (Manual) Lymphocytes % (Manual) Seg Neutrophils # Lymphocytes # (Manual) D-Dimer ABG pH ABG pO2 ABG HCO3 ABG O2 Saturation ABG Base Excess Sodium Potassium Chloride Carbon Dioxide BUN Creatinine Glucose POC Glucose 295 H 220 H Calcium ALT NT-Pro-B Natriuret Pep Albumin Urine WBC (Auto) 09/19/21 09/19/21 09/19/21 14:00 18:32 21:19 Hct RDW Lymph % (Auto) [place] % (Auto) Lymph # (Auto) [place] # (Auto) Seg Neutrophils % Seg Neuts % (Manual) Lymphocytes % (Manual) Seg Neutrophils # Lymphocytes # (Manual) D-Dimer ABG pH ABG pO2 ABG HCO3 ABG O2 Saturation ABG Base Excess Sodium 136 L Potassium 5.7 H Chloride 92.1 L Carbon Dioxide 37 H BUN 21 H Creatinine 0.2 L Glucose 230 H POC Glucose 173 H 190 H Calcium ALT NT-Pro-B Natriuret Pep Albumin Urine WBC (Auto) 09/20/21 09/20/21 09/20/21 04:32 07:57 11:06 Hct RDW Lymph % (Auto) [place] % (Auto) Lymph # (Auto) [place] # (Auto) Seg Neutrophils % Seg Neuts % (Manual) Lymphocytes % (Manual) Seg Neutrophils # Lymphocytes # (Manual) D-Dimer ABG pH ABG pO2 ABG HCO3 ABG O2 Saturation ABG Base Excess Sodium 135 L Potassium Chloride 92.3 L Carbon Dioxide 33 H BUN 18 H Creatinine 0.2 L Glucose 264 H POC Glucose 237 H 232 H Calcium ALT NT-Pro-B Natriuret Pep Albumin Urine WBC (Auto) 09/20/21 09/20/21 09/21/21 15:19 20:04 07:24 Hct RDW Lymph % (Auto) [place] % (Auto) Lymph # (Auto) [place] # (Auto) Seg Neutrophils % Seg Neuts % (Manual) Lymphocytes % (Manual) Seg Neutrophils # Lymphocytes # (Manual) D-Dimer ABG pH ABG pO2 ABG HCO3 ABG O2 Saturation ABG Base Excess Sodium Potassium Chloride Carbon Dioxide BUN Creatinine Glucose POC Glucose 195 H 209 H 58 L Calcium ALT NT-Pro-B Natriuret Pep Albumin Urine WBC (Auto) 09/21/21 09/21/21 09/21/21 11:42 15:48 21:10 Hct RDW Lymph % (Auto) [place] % (Auto) Lymph # (Auto) [place] # (Auto) Seg Neutrophils % Seg Neuts % (Manual) Lymphocytes % (Manual) Seg Neutrophils # Lymphocytes # (Manual) D-Dimer ABG pH ABG pO2 ABG HCO3 ABG O2 Saturation ABG Base Excess Sodium Potassium Chloride Carbon Dioxide BUN Creatinine Glucose POC Glucose 137 H 192 H 321 H Calcium ALT NT-Pro-B Natriuret Pep Albumin Urine WBC (Auto) 09/22/21 09/22/21 09/22/21 07:31 11:20 16:08 Hct RDW Lymph % (Auto) [place] % (Auto) Lymph # (Auto) [place] # (Auto) Seg Neutrophils % Seg Neuts % (Manual) Lymphocytes % (Manual) Seg Neutrophils # Lymphocytes # (Manual) D-Dimer ABG pH ABG pO2 ABG HCO3 ABG O2 Saturation ABG Base Excess Sodium Potassium Chloride Carbon Dioxide BUN Creatinine Glucose POC Glucose 189 H 186 H 182 H Calcium ALT NT-Pro-B Natriuret Pep Albumin Urine WBC (Auto) 09/22/21 09/23/21 09/23/21 21:55 08:02 12:09 Hct RDW Lymph % (Auto) [place] % (Auto) Lymph # (Auto) [place] # (Auto) Seg Neutrophils % Seg Neuts % (Manual) Lymphocytes % (Manual) Seg Neutrophils # Lymphocytes # (Manual) D-Dimer ABG pH ABG pO2 ABG HCO3 ABG O2 Saturation ABG Base Excess Sodium Potassium Chloride Carbon Dioxide BUN Creatinine Glucose POC Glucose 235 H 114 H 176 H Calcium ALT NT-Pro-B Natriuret Pep Albumin Urine WBC (Auto) 09/23/21 09/23/21 09/24/21 17:21 20:20 07:50 Hct RDW Lymph % (Auto) [place] % (Auto) Lymph # (Auto) [place] # (Auto) Seg Neutrophils % Seg Neuts % (Manual) Lymphocytes % (Manual) Seg Neutrophils # Lymphocytes # (Manual) D-Dimer ABG pH ABG pO2 ABG HCO3 ABG O2 Saturation ABG Base Excess Sodium Potassium Chloride Carbon Dioxide BUN Creatinine Glucose POC Glucose 186 H 167 H 69 L Calcium ALT NT-Pro-B Natriuret Pep Albumin Urine WBC (Auto) 09/24/21 09/24/21 09/24/21 11:22 16:12 20:27 Hct RDW Lymph % (Auto) [place] % (Auto) Lymph # (Auto) [place] # (Auto) Seg Neutrophils % Seg Neuts % (Manual) Lymphocytes % (Manual) Seg Neutrophils # Lymphocytes # (Manual) D-Dimer ABG pH ABG pO2 ABG HCO3 ABG O2 Saturation ABG Base Excess Sodium Potassium Chloride Carbon Dioxide BUN Creatinine Glucose POC Glucose 230 H 193 H 252 H Calcium ALT NT-Pro-B Natriuret Pep Albumin Urine WBC (Auto) 09/25/21 09/25/21 09/25/21 07:45 11:24 15:04 Hct RDW Lymph % (Auto) [place] % (Auto) Lymph # (Auto) [place] # (Auto) Seg Neutrophils % Seg Neuts % (Manual) Lymphocytes % (Manual) Seg Neutrophils # Lymphocytes # (Manual) D-Dimer ABG pH ABG pO2 ABG HCO3 ABG O2 Saturation ABG Base Excess Sodium Potassium Chloride Carbon Dioxide BUN Creatinine Glucose POC Glucose 46 L 161 H 165 H Calcium ALT NT-Pro-B Natriuret Pep Albumin Urine WBC (Auto) 09/25/21 09/26/21 09/26/21 21:04 07:33 11:16 Hct RDW Lymph % (Auto) [place] % (Auto) Lymph # (Auto) [place] # (Auto) Seg Neutrophils % Seg Neuts % (Manual) Lymphocytes % (Manual) Seg Neutrophils # Lymphocytes # (Manual) D-Dimer ABG pH ABG pO2 ABG HCO3 ABG O2 Saturation ABG Base Excess Sodium Potassium Chloride Carbon Dioxide BUN Creatinine Glucose POC Glucose 263 H 207 H 179 H Calcium ALT NT-Pro-B Natriuret Pep Albumin Urine WBC (Auto)
--- NOTE | 2021-09-26 20:32 | Progress Note ---
Assessment and Plan Assessment and plan: 50-year-old female patient was admitted with COVID-19 pneumonia severe hypoxic hypercapnic respiratory failure had a prolonged stay in the hospital for 3 to 4 months and was discharged on 08/28/2021 on home oxygen and long-term steroids and other supportive care, patient again was admitted on the stabilized and discharged on the . patient already has home oxygen and all the medications are needed. Patient readmitted 09/01/21 with acute hypoxic respiratory failure and altered level of consciousness, s/p BiPAP, chest x-ray gaseous distention of the stomach. Pulmonary following, patient also has generalized anxiety on Xanax. 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 Gomes PCR test is negative Severe hypoxic and hypercapnic respiratory failure, required BiPAP on admission Patient was on 10 L of nasal cannula oxygen/100% nonrebreather/BiPAP, currently on high flow O2 X-ray chest show moderate gaseous distention of the stomach severe diffuse bilateral chronic parenchymal opacities that have not changed chest x-ray Patient was recently discharged on on home 3 L oxygen CTA chest; no CT evidence of PE, diffuse severe bilateral mixed interstitial and alveolar opacities CT head without contrast; there is 2 small 2 to 3 mm focus of calcification along the lateral left frontal lobe which appears to be incidental, Patient is receiving currently high-dose Solu-Medrol therapy, per pulmonary --Abdominal distention with ileus Pulmonary recommended NG tube placement with intermittent suction for gastric distention Repeat abdomen x-ray 09/03 showed no gaseous distention, now tolerating diet -- IDDM (insulin dependent diabetes mellitus) Continue home insulin and coverage Follow hemoglobin A1c, SSI as needed --[place] (generalized anxiety disorder) Continue Xanax as necessary --Hypokalemia, repleted --hyperkalemia, s/p kayexalate --Uncontrolled blood sugars probably secondary to steroids, increase Lantus to 15 units subcu daily --Sepsis secondary to UTI/E. coli Completed treatment with Levaquin --DVT prophylaxis On Lovenox and GI prophylaxis Daily clinical course: 09/01/2021; on intermittent BiPAP, chest x-ray gaseous distention of stomach recommend, NG tube placement intermittent suction and supportive care Disposition monitor closely wean will oxygen;, 2 -4 to 5 L nasal cannula, and discharge when stable. Patient already has home oxygen 09/02: Remains hypoxic and hypercapnic, somnolent post Ativan, on high flow O2 30 to 40 L, high-dose Solu-Medrol and NG tube for gastric distention. wean FiO2 as tolerated and BiPAP as needed for the hypercapnia, recheck ABG. Discussed with the pulmonary and nursing staff. 09/03: Off BiPAP this morning, continue to follow serum glucose, patient on high -dose steroid, continue high flow O2 and wean off as tolerated. Repeat abdominal x-ray showed non significant normal bowel gas pattern. Will initiate on clear liquid diet, will monitor off NG tube. 09/04; continue to follow clinically, empiric steroid, wean off O2 as tolerated, patient remains on high flow O2. Will advance diet as tolerated. Continue to monitor serum blood glucose and adjust insulin doses accordingly. 09/05: Follow clinically, consistent carb diet, high-dose empiric steroid, wean off O2 as tolerated. Transfer out of intermediate care to [facility] with telemetry. 09/06: Remains on high flow O2 25 L, continue to provide supportive care, wean off O2 as tolerated, adjust serum blood glucose with insulin, tolerating consistent carb diet. 09/07/21: Continue to replete electrolytes and monitor. Wean off O2 as tolerated, guarded prognosis, continue empiric steroid. Follow clinically. 09/08/21; continue to replete and monitor potassium, wean off O2 as tolerated. Patient remains on 25 L high flow O2. Continue empiric steroid, follow clinically. 09/09/21; spiking temp, will order pancultures, repeat chest x-ray, guarded prognosis, remains on 25 L high flow O2, follow clinically 09/10; patient is afebrile, remains on high flow 25 L nasal cannula oxygen, wean as tolerated, patient already has home oxygen Wean aggressively as tolerated, if no improvement consider hospice 09/11; patient's urine cultures positive for gram-negative rods, will add Levaquin 750 mg IV daily, follow culture sensitivities and adjust as needed Patient is anxious, has intermittent panic episodes, continue Xanax, consult psych 09/12; urine cultures positive for E. coli, sensitivities include Levaquin, remains on high flow nasal cannula oxygen, wean as tolerated Consults and recommendations noted and appreciated 09/13; sepsis due to UTI E. coli, remains on high flow nasal cannula oxygen, wean as tolerated, psych evaluation noted no new recommendations 09/14/21: On HFNC 20 L/35% FiO2/95 O2 sats, wean as tolerated, continue current management 09/15/21; remains an HFNC oxygen, chronically ill looking. Consider LTAC placement, social issues 09/16/2021; on 30 L HFNC O2, wean as tolerated 09/17/2021; remains on HFNC 30 L/35% FiO2/94 O2 sats, steroids reduced to 40 mg every 8 hours, follow pulmonary recommendations Unable to consider LTAC, as patient is undocumented and no resources, DC planning per case management when stable 09/18/21; remains on 30 L high flow O2, shoe caser working on LTAC versus hospice placement. Continue to provide supportive care 09/19/21: Remains on high flow O2, potassium 5.7 today -ordered for Kayexalate. Will monitor BMP. Patient remains on high flow O2. Pending placement. 09/20/21: Remains on high flow O2, continue to monitor BMP. Multiple social issues, unable to find placement. Continue supportive care and wean off O2 as tolerated. Potassium 4.9 today. 09/21/21: unable to find placement. Continue supportive care and wean off O2 as tolerated. Remains on high flow O2. 09/22/21; Continue supportive care and wean off O2 as tolerated. Remains on high flow O2. Patient have no insurance, unable to wean off from O2. LTAC refused ,. entertainment centre manager working on placement. 09/23: Patient remains on high flow O2, wean off as tolerated. Pulmonary following. Patient need placement to LTAC or home with hospice. 09/24/2021: Patient is awake, alert and verbal. She has mild respiratory distress at rest with a tachypnea, remains on high flow oxygen at 35 L. She is currently bedbound. She has good strength in upper extremities but poor strength in both lower extremities. Spoke with her daughter who speaks fluent Serbian regarding her home hospice. Her daughter states that family does not want home hospice. Daughter further states that they're planning to take her home in [place] via private aircraft. She is in contact with the medical team in [place] and planning to send medical records there. Case management on the case for discharge planning. 09/25: Patient remains in mild to moderate respiratory distress at rest O2 is being aggressively weaned by respiratory team. 09/26: Patient remains in the mild to moderate respiratory distress at rest. O2 is being aggressively weaned by respiratory team. History Interval history: Patient is awake, alert and verbal. She has mild respiratory distress at rest with a tachypnea, O2 is being weaned aggressively by RT. Hospitalist Physical - Constitutional Vitals: Temp Pulse Resp BP Pulse Ox 98.4 F 102 H 21 126/81 100 09/26/21 15:54 09/26/21 19:34 09/26/21 19:34 09/26/21 19:34 09/26/21 19:34 General appearance: Present: mild distress, well-nourished, other (On high flow oxygen, alert and awake) - EENT Eyes: Present: PERRL, EOM intact ENT: clear oral mucosa - Neck Neck: Present: supple - Respiratory Respiratory: bilateral: diminished - Cardiovascular Rhythm: regular - Extremities Extremities: no ischemia - Abdominal General gastrointestinal: soft, non-tender - Integumentary Integumentary: Absent: rash - Psychiatric Psychiatric: other (Anxious) - Neurologic Neurologic: other (Alert and oriented, normal speech, strength in upper EXTR n ormal, strength in both lower [id number]) Results - Labs CBC & Chem 7: 09/19/21 14:00 09/20/21 04:32 Labs: Laboratory Last Values WBC 9.6 K/mm3 (4.5-11.0) 09/19/21 14:00 RBC 4.71 M/mm3 (3.65-5.03) 09/19/21 14:00 Hgb 13.2 gm/dl (10.1-14.3) 09/19/21 14:00 Hct 42.9 % (30.3-42.9) 09/19/21 14:00 MCV 91 fl (79-97) 09/19/21 14:00 MCH 28 pg (28-32) 09/19/21 14:00 MCHC 31 % (30-34) 09/19/21 14:00 RDW 18.6 % (13.2-15.2) H 09/19/21 14:00 Plt Count 305 K/mm3 (140-440) 09/19/21 14:00 Lymph % (Auto) 12.3 % (13.4-35.0) L 09/08/21 04:31 [place] % (Auto) 6.6 % (0.0-7.3) 09/08/21 04:31 Eos % (Auto) 0.3 % (0.0-4.3) 09/08/21 04:31 Baso % (Auto) 1.7 % (0.0-1.8) 09/08/21 04:31 Lymph # (Auto) 1.0 K/mm3 (1.2-5.4) L 09/08/21 04:31 [place] # (Auto) 0.5 K/mm3 (0.0-0.8) 09/08/21 04:31 Eos # (Auto) 0.0 K/mm3 (0.0-0.4) 09/08/21 04:31 Baso # (Auto) 0.1 K/mm3 (0.0-0.1) 09/08/21 04:31 Add Manual Diff Complete 09/03/21 06:05 Total Counted 100 09/03/21 06:05 Seg Neutrophils % 79.1 % (40.0-70.0) H 09/08/21 04:31 Seg Neuts % (Manual) 94.0 % (40.0-70.0) H 09/03/21 06:05 Lymphocytes % (Manual) 3.0 % (13.4-35.0) L 09/03/21 06:05 Monocytes % (Manual) 3.0 % (0.0-7.3) 09/03/21 06:05 Nucleated RBC % Not Reportable 09/03/21 06:05 Seg Neutrophils # 6.5 K/mm3 (1.8-7.7) 09/08/21 04:31 Seg Neutrophils # Man 7.3 K/mm3 (1.8-7.7) 09/03/21 06:05 Band Neutrophils # 0.0 K/mm3 09/03/21 06:05 Lymphocytes # (Manual) 0.2 K/mm3 (1.2-5.4) L 09/03/21 06:05 Abs React Lymphs (Man) 0.0 K/mm3 09/03/21 06:05 Monocytes # (Manual) 0.2 K/mm3 (0.0-0.8) 09/03/21 06:05 Eosinophils # (Manual) 0.0 K/mm3 (0.0-0.4) 09/03/21 06:05 Basophils # (Manual) 0.0 K/mm3 (0.0-0.1) 09/03/21 06:05 Metamyelocytes # 0.0 K/mm3 09/03/21 06:05 Myelocytes # 0.0 K/mm3 09/03/21 06:05 Promyelocytes # 0.0 K/mm3 09/03/21 06:05 Blast Cells # 0.0 K/mm3 09/03/21 06:05 WBC Morphology Not Reportable 09/03/21 06:05 Hypersegmented Neuts Not Reportable 09/03/21 06:05 Hyposegmented Neuts Not Reportable 09/03/21 06:05 Hypogranular Neuts Not Reportable 09/03/21 06:05 Smudge Cells Not Reportable 09/03/21 06:05 Toxic Granulation Not Reportable 09/03/21 06:05 Toxic Vacuolation Not Reportable 09/03/21 06:05 Dohle Bodies Not Reportable 09/03/21 06:05 Pelger-Huet Anomaly Not Reportable 09/03/21 06:05 Janelle Rods Not Reportable 09/03/21 06:05 Platelet Estimate Consistent w auto 09/03/21 06:05 Clumped Platelets Not Reportable 09/03/21 06:05 Plt Clumps, EDTA Not Reportable 09/03/21 06:05 Large Platelets Not Reportable 09/03/21 06:05 Giant Platelets Not Reportable 09/03/21 06:05 Platelet Satelliting Not Reportable 09/03/21 06:05 Plt Morphology Comment Not Reportable 09/03/21 06:05 RBC Morphology Normal 09/03/21 06:05 Dimorphic RBCs Not Reportable 09/03/21 06:05 Polychromasia Not Reportable 09/03/21 06:05 Hypochromasia Not Reportable 09/03/21 06:05 Poikilocytosis 1+ 09/03/21 06:05 Anisocytosis Not Reportable 09/03/21 06:05 Microcytosis Not Reportable 09/03/21 06:05 Macrocytosis Not Reportable 09/03/21 06:05 Spherocytes Not Reportable 09/03/21 06:05 Pappenheimer Bodies Not Reportable 09/03/21 06:05 Sickle Cells Not Reportable 09/03/21 06:05 Target Cells Not Reportable 09/03/21 06:05 Tear Drop Cells Not Reportable 09/03/21 06:05 Ovalocytes Not Reportable 09/03/21 06:05 Stomatocytes 3+ 09/03/21 06:05 Helmet Cells Not Reportable 09/03/21 06:05 [place] Bodies Not Reportable 09/03/21 06:05 [place] Rings Not Reportable 09/03/21 06:05 [place] Cells Not Reportable 09/03/21 06:05 Bite Cells Not Reportable 09/03/21 06:05 Crenated Cell Not Reportable 09/03/21 06:05 Elliptocytes Not Reportable 09/03/21 06:05 Acanthocytes (Spur) Not Reportable 09/03/21 06:05 Rouleaux Not Reportable 09/03/21 06:05 Hemoglobin C Crystals Not Reportable 09/03/21 06:05 Schistocytes Not Reportable 09/03/21 06:05 Malaria parasites Not Reportable 09/03/21 06:05 [place] Bodies Not Reportable 09/03/21 06:05 Hem Pathologist Commnt No 09/03/21 06:05 D-Dimer 710.59 ng/mlDDU (0-234) H 08/31/21 19:32 ABG pH 7.240 pH Units (7.350-7.450) L 09/01/21 23:56 ABG pCO2 111.3 mm Hg 09/01/21 23:56 ABG pO2 198.0 mm Hg (80.0-90.0) H 09/01/21 23:56 ABG HCO3 46.6 mmol/L (20.0-26.0) H 09/01/21 23:56 ABG O2 Saturation 99.0 % (95.0-99.0) 09/01/21 23:56 ABG O2 Content 16.8 (0.0-44) 09/01/21 23:56 ABG Base Excess 14.8 mmol/L (-2.0-3.0) H 09/01/21 23:56 ABG Hemoglobin 12.0 gm/dl (12.0-16.0) 09/01/21 23:56 ABG Carboxyhemoglobin 1.6 % (0.0-5.0) 09/01/21 23:56 ABG Methemoglobin 0.6 % (0.0-1.5) 09/01/21 23:56 Oxyhemoglobin 96.8 % (95.0-99.0) 09/01/21 23:56 FiO2 60 % 09/01/21 23:56 Sodium 135 mmol/L (137-145) L 09/20/21 04:32 Potassium 4.9 mmol/L (3.6-5.0) 09/20/21 04:32 Chloride 92.3 mmol/L (98-107) L 09/20/21 04:32 Carbon Dioxide 33 mmol/L (22-30) H 09/20/21 04:32 Anion Gap 15 mmol/L 09/20/21 04:32 BUN 18 mg/dL (7-17) H 09/20/21 04:32 Creatinine 0.2 mg/dL (0.6-1.2) L 09/20/21 04:32 Estimated GFR > 60 ml/min 09/20/21 04:32 BUN/Creatinine Ratio 90 % 09/20/21 04:32 Glucose 264 mg/dL (65-100) H 09/20/21 04:32 POC Glucose 128 mg/dL (70-105) H 09/26/21 15:54 Calcium 9.0 mg/dL (8.4-10.2) 09/20/21 04:32 Magnesium 2.10 mg/dL (1.7-2.3) 09/08/21 04:31 Total Bilirubin 0.30 mg/dL (0.1-1.2) 09/03/21 06:05 AST 29 units/L (5-40) 09/03/21 06:05 ALT 71 units/L (7-56) H 09/03/21 06:05 Alkaline Phosphatase 82 units/L (35-129) 09/03/21 06:05 NT-Pro-B Natriuret Pep 524.1 pg/mL (0-450) H 08/31/21 19:32 Total Protein 7.0 g/dL (6.3-8.2) 09/03/21 06:05 Albumin 3.8 g/dL (3.9-5) L 09/03/21 06:05 Albumin/Globulin Ratio 1.2 % 09/03/21 06:05 HCG, Qual Negative (Negative) 08/31/21 19:32 Urine Color Yellow (Yellow) 09/10/21 07:00 Urine Turbidity Cloudy (Clear) 09/10/21 07:00 Urine pH 7.0 (5.0-7.0) 09/10/21 07:00 Ur Specific Balsam 1.022 (1.003-1.030) 09/10/21 07:00 Urine Protein <15 mg/dl mg/dL (Negative) 09/10/21 07:00 Urine Glucose (UA) >=500 mg/dL (Negative) 09/10/21 07:00 Urine Ketones Neg mg/dL (Negative) 09/10/21 07:00 Urine Blood Sm (Negative) 09/10/21 07:00 Urine Nitrite Neg (Negative) 09/10/21 07:00 Urine Bilirubin Neg (Negative) 09/10/21 07:00 Urine Urobilinogen < 2.0 mg/dL (<2.0) 09/10/21 07:00 Ur Leukocyte Esterase Mod (Negative) 09/10/21 07:00 Urine WBC (Auto) 24.0 /HPF (0.0-6.0) H 09/10/21 07:00 Urine RBC (Auto) 17.0 /HPF (0.0-6.0) 09/10/21 07:00 U Epithel Cells (Auto) 3.0 /HPF (0-13.0) 09/10/21 07:00 Urine Bacteria (Auto) 2+ /HPF (Negative) 09/10/21 07:00 Calcium Oxalate Crystal Few 09/10/21 07:00 Urine Mucus 1+ /HPF 09/10/21 07:00 Ur Yeast w Hyphae Few /HPF 09/10/21 07:00 Urine Yeast (Budding) Few /HPF 09/10/21 07:00 Amos/IV: Voiding Method External Female Catheter Active Medications - Current Medications Current Medications: Generic Name Dose Route Start Last Admin Trade Name Freq PRN Reason Stop Dose Admin Acetaminophen 650 mg 09/01/21 01:25 09/25/21 11:04 Acetaminophen 325 Mg Tab PO 650 mg Q4H PRN Administration Pain MILD(1-3)/Fever >100.5/[place] Albuterol 2.5 mg 09/01/21 01:25 09/14/21 14:56 Albuterol 2.5 Mg/3 Ml Nebu IH 2.5 mg Q3HRT PRN Administration Shortness Of Breath Alprazolam 1 mg 09/01/21 01:38 09/26/21 09:58 Alprazolam 1 Mg Tab PO 1 mg BID PRN Administration Agitation Clonidine HCl 0.2 mg 09/21/21 16:00 09/21/21 21:40 Clonidine Tts 0.2 Mg/24 Hr Patch TD 0.2 mg Sa TUTU Administration Dextrose 50 ml 09/01/21 01:25 Dextrose 50% In Water (25gm) 50 Ml Syringe IV Q30MIN PRN Hypoglycemia Protocol Famotidine 20 mg 09/01/21 10:00 09/26/21 09:38 Famotidine 20 Mg Tab PO 20 mg BID TUTU Administration Heparin Sodium (Porcine) 5,000 unit 09/01/21 06:00 09/26/21 14:53 Heparin 5,000 Unit/1 Ml Vial SUB-Q 5,000 unit Q8HR TUTU Administration Hydrocortisone Acetate 1 applic 09/21/21 15:00 Hydrocortisone 1% Cream 28.4gm TP Q8H PRN Skin Irritation Insulin Human Lispro 0 unit 09/01/21 07:30 09/26/21 16:06 Insulin Lispro 100 Unit/Ml SUB-Q Not Given ACHS [facility] Protocol Methylprednisolone Sodium Succinate 20 mg 09/26/21 22:00 Methylprednisolone Sod Succinate 40 Mg/1 Ml Inj IV Q12HR [facility] Ondansetron HCl 4 mg 09/01/21 01:25 09/05/21 15:12 Ondansetron 4 Mg/2 Ml Inj IV 4 mg Q8H PRN Administration Nausea And Vomiting Sodium Chloride 10 ml 09/01/21 10:00 09/26/21 09:39 Sodium Chloride 0.9% 10 Ml Flush Syringe IV 10 ml BID TUTU Administration Sodium Chloride 10 ml 09/01/21 01:25 09/26/21 05:41 Sodium Chloride 0.9% 10 Ml Flush Syringe IV 10 ml PRN PRN Administration LINE FLUSH Nutrition/Malnutrition Assess - Dietary Evaluation Nutrition/Malnutrition Findings: Nutrition Notes Start: 09/01/21 12:25 Freq: Status: Active Protocol: Document 09/16/21 15:34 SAQIB (Rec: 09/16/21 15:38 SAQIB [id number]) Nutrition Notes Initial or Follow up Brief Note Current Diet Consistent Carbohydrates Diet (since B 09/06). Height 5 ft 2 in Weight 54 kg [place] Body Weight (kg) 50.00 BMI 21.7 Weight change and time frame No body weight change reported . Weight Status Appropriate Subjective/Other Information RD consult on routine F/U on dietary tolerance. Pt's %PO intake of meals is Good (75-100%), according to ADL notes. Percent of energy/protein needs met: Prescribed Consistent Carbohydrates Diet provides for energy/protein needs (2, 061 Kcal/91 g) during LOS. Current % PO Good (75-100%) Nutrition Intervention Change Diet Order: Continue Consistent Carbohydrates Diet. Revisit per MD consult or patient Sign Off request: Additional Comments Continue monitoring food tolerance, %PO intake of meals and BM.
[2021-09-27] MEDS: ACETAMINOPHEN 325 MG TAB PO PRN ×2 (00:26→22:22)
[2021-09-27] MEDS: HEPARIN 5,000 UNIT/1 ML VIAL SUB-Q SCH ×3 (06:00→22:18)
[2021-09-27] MEDS: INSULIN LISPRO 100 UNIT/ML SUB-Q SCH ×5 (08:42→22:18)
[2021-09-27] MEDS: methylPREDNISolone Sod Succinate 40 MG/1 ML INJ IV SCH (09:18)
[2021-09-27] MEDS: ALPRAZolam 1 MG TAB PO PRN ×2 (09:18→22:22)
[2021-09-27] MEDS: FAMOTIDINE 20 MG TAB PO SCH ×2 (09:18→22:18)
[2021-09-27] MEDS: predniSONE 20 MG TAB PO SCH (12:29)
--- NOTE | 2021-09-27 19:20 | Progress Note ---
Assessment and Plan Assessment and plan: 50-year-old female patient was admitted with COVID-19 pneumonia severe hypoxic hypercapnic respiratory failure had a prolonged stay in the hospital for 3 to 4 months and was discharged on 08/28/2021 on home oxygen and long-term steroids and other supportive care, patient again was admitted on the stabilized and discharged on the . patient already has home oxygen and all the medications are needed. Patient readmitted 09/01/21 with acute hypoxic respiratory failure and altered level of consciousness, s/p BiPAP, chest x-ray gaseous distention of the stomach. Pulmonary following, patient also has generalized anxiety on Xanax. 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 Gomes PCR test is negative Severe hypoxic and hypercapnic respiratory failure, required BiPAP on admission Patient was on 10 L of nasal cannula oxygen/100% nonrebreather/BiPAP, currently on high flow O2 X-ray chest show moderate gaseous distention of the stomach severe diffuse bilateral chronic parenchymal opacities that have not changed chest x-ray Patient was recently discharged on on home 3 L oxygen CTA chest; no CT evidence of PE, diffuse severe bilateral mixed interstitial and alveolar opacities CT head without contrast; there is 2 small 2 to 3 mm focus of calcification along the lateral left frontal lobe which appears to be incidental, Patient is receiving currently high-dose Solu-Medrol therapy, per pulmonary --Abdominal distention with ileus Pulmonary recommended NG tube placement with intermittent suction for gastric distention Repeat abdomen x-ray 09/03 showed no gaseous distention, now tolerating diet -- IDDM (insulin dependent diabetes mellitus) Continue home insulin and coverage Follow hemoglobin A1c, SSI as needed --[place] (generalized anxiety disorder) Continue Xanax as necessary --Hypokalemia, repleted --hyperkalemia, s/p kayexalate --Uncontrolled blood sugars probably secondary to steroids, increase Lantus to 15 units subcu daily --Sepsis secondary to UTI/E. coli Completed treatment with Levaquin --DVT prophylaxis On Lovenox and GI prophylaxis Daily clinical course: 09/01/2021; on intermittent BiPAP, chest x-ray gaseous distention of stomach recommend, NG tube placement intermittent suction and supportive care Disposition monitor closely wean will oxygen;, 2 -4 to 5 L nasal cannula, and discharge when stable. Patient already has home oxygen 09/02: Remains hypoxic and hypercapnic, somnolent post Ativan, on high flow O2 30 to 40 L, high-dose Solu-Medrol and NG tube for gastric distention. wean FiO2 as tolerated and BiPAP as needed for the hypercapnia, recheck ABG. Discussed with the pulmonary and nursing staff. 09/03: Off BiPAP this morning, continue to follow serum glucose, patient on high -dose steroid, continue high flow O2 and wean off as tolerated. Repeat abdominal x-ray showed non significant normal bowel gas pattern. Will initiate on clear liquid diet, will monitor off NG tube. 09/04; continue to follow clinically, empiric steroid, wean off O2 as tolerated, patient remains on high flow O2. Will advance diet as tolerated. Continue to monitor serum blood glucose and adjust insulin doses accordingly. 09/05: Follow clinically, consistent carb diet, high-dose empiric steroid, wean off O2 as tolerated. Transfer out of intermediate care to [facility] with telemetry. 09/06: Remains on high flow O2 25 L, continue to provide supportive care, wean off O2 as tolerated, adjust serum blood glucose with insulin, tolerating consistent carb diet. 09/07/21: Continue to replete electrolytes and monitor. Wean off O2 as tolerated, guarded prognosis, continue empiric steroid. Follow clinically. 09/08/21; continue to replete and monitor potassium, wean off O2 as tolerated. Patient remains on 25 L high flow O2. Continue empiric steroid, follow clinically. 09/09/21; spiking temp, will order pancultures, repeat chest x-ray, guarded prognosis, remains on 25 L high flow O2, follow clinically 09/10; patient is afebrile, remains on high flow 25 L nasal cannula oxygen, wean as tolerated, patient already has home oxygen Wean aggressively as tolerated, if no improvement consider hospice 09/11; patient's urine cultures positive for gram-negative rods, will add Levaquin 750 mg IV daily, follow culture sensitivities and adjust as needed Patient is anxious, has intermittent panic episodes, continue Xanax, consult psych 09/12; urine cultures positive for E. coli, sensitivities include Levaquin, remains on high flow nasal cannula oxygen, wean as tolerated Consults and recommendations noted and appreciated 09/13; sepsis due to UTI E. coli, remains on high flow nasal cannula oxygen, wean as tolerated, psych evaluation noted no new recommendations 09/14/21: On HFNC 20 L/35% FiO2/95 O2 sats, wean as tolerated, continue current management 09/15/21; remains an HFNC oxygen, chronically ill looking. Consider LTAC placement, social issues 09/16/2021; on 30 L HFNC O2, wean as tolerated 09/17/2021; remains on HFNC 30 L/35% FiO2/94 O2 sats, steroids reduced to 40 mg every 8 hours, follow pulmonary recommendations Unable to consider LTAC, as patient is undocumented and no resources, DC planning per case management when stable 09/18/21; remains on 30 L high flow O2, adult protective caseworker working on LTAC versus hospice placement. Continue to provide supportive care 09/19/21: Remains on high flow O2, potassium 5.7 today -ordered for Kayexalate. Will monitor BMP. Patient remains on high flow O2. Pending placement. 09/20/21: Remains on high flow O2, continue to monitor BMP. Multiple social issues, unable to find placement. Continue supportive care and wean off O2 as tolerated. Potassium 4.9 today. 09/21/21: unable to find placement. Continue supportive care and wean off O2 as tolerated. Remains on high flow O2. 09/22/21; Continue supportive care and wean off O2 as tolerated. Remains on high flow O2. Patient have no insurance, unable to wean off from O2. LTAC refused ,. manager php working on placement. 09/23: Patient remains on high flow O2, wean off as tolerated. Pulmonary following. Patient need placement to LTAC or home with hospice. 09/24/2021: Patient is awake, alert and verbal. She has mild respiratory distress at rest with a tachypnea, remains on high flow oxygen at 35 L. She is currently bedbound. She has good strength in upper extremities but poor strength in both lower extremities. Spoke with her daughter who speaks fluent [place] regarding her home hospice. Her daughter states that family does not want home hospice. Daughter further states that they're planning to take her home in [place] via private aircraft. She is in contact with the medical team in [place] and planning to send medical records there. Case management on the case for discharge planning. 09/25: Patient remains in mild to moderate respiratory distress at rest O2 is being aggressively weaned by respiratory team. 09/26: Patient remains in the mild to moderate respiratory distress at rest. O2 is being aggressively weaned by respiratory team. 09/27: Patient is awake, alert and verbal. Remains in mild respiratory distress at rest with a tachypnea, O2 is being weaned aggressively by RT., currently on 8 L O2, Solu-Medrol changed to prednisone 40 mg daily by pulmonary. Tolerating diet. History Interval history: Patient is awake, alert and verbal. She has mild respiratory distress at rest with a tachypnea, O2 is being weaned aggressively by RT., currently on 8 L high flow O2, Solu-Medrol changed to prednisone 40 mg daily by pulmonary. Tolerating diet. Hospitalist Physical - Constitutional Vitals: Temp Pulse Resp BP Pulse Ox 97.3 F L 79 22 134/86 100 09/27/21 03:49 09/27/21 03:49 09/27/21 03:49 09/27/21 03:49 09/27/21 14:55 General appearance: Present: mild distress, well-nourished, other (On 8 L oxygen, alert and awake) - EENT Eyes: Present: PERRL, EOM intact ENT: hearing intact, clear oral mucosa - Neck Neck: Present: supple - Respiratory Respiratory effort: labored Respiratory: bilateral: diminished - Cardiovascular Rhythm: regular - Extremities Extremities: No edema - Abdominal General gastrointestinal: soft, non-tender, non-distended - Integumentary Integumentary: Absent: rash - Psychiatric Psychiatric: other (Anxious) - Neurologic Neurologic: other (Alert and oriented, normal speech, started approximately normal, started lower extremities 2/5.) Results - Labs CBC & Chem 7: 09/19/21 14:00 09/20/21 04:32 Labs: Laboratory Last Values WBC 9.6 K/mm3 (4.5-11.0) 09/19/21 14:00 RBC 4.71 M/mm3 (3.65-5.03) 09/19/21 14:00 Hgb 13.2 gm/dl (10.1-14.3) 09/19/21 14:00 Hct 42.9 % (30.3-42.9) 09/19/21 14:00 MCV 91 fl (79-97) 09/19/21 14:00 MCH 28 pg (28-32) 09/19/21 14:00 MCHC 31 % (30-34) 09/19/21 14:00 RDW 18.6 % (13.2-15.2) H 09/19/21 14:00 Plt Count 305 K/mm3 (140-440) 09/19/21 14:00 Lymph % (Auto) 12.3 % (13.4-35.0) L 09/08/21 04:31 [facility] % (Auto) 6.6 % (0.0-7.3) 09/08/21 04:31 Eos % (Auto) 0.3 % (0.0-4.3) 09/08/21 04:31 Baso % (Auto) 1.7 % (0.0-1.8) 09/08/21 04:31 Lymph # (Auto) 1.0 K/mm3 (1.2-5.4) L 09/08/21 04:31 [facility] # (Auto) 0.5 K/mm3 (0.0-0.8) 09/08/21 04:31 Eos # (Auto) 0.0 K/mm3 (0.0-0.4) 09/08/21 04:31 Baso # (Auto) 0.1 K/mm3 (0.0-0.1) 09/08/21 04:31 Add Manual Diff Complete 09/03/21 06:05 Total Counted 100 09/03/21 06:05 Seg Neutrophils % 79.1 % (40.0-70.0) H 09/08/21 04:31 Seg Neuts % (Manual) 94.0 % (40.0-70.0) H 09/03/21 06:05 Lymphocytes % (Manual) 3.0 % (13.4-35.0) L 09/03/21 06:05 Monocytes % (Manual) 3.0 % (0.0-7.3) 09/03/21 06:05 Nucleated RBC % Not Reportable 09/03/21 06:05 Seg Neutrophils # 6.5 K/mm3 (1.8-7.7) 09/08/21 04:31 Seg Neutrophils # Man 7.3 K/mm3 (1.8-7.7) 09/03/21 06:05 Band Neutrophils # 0.0 K/mm3 09/03/21 06:05 Lymphocytes # (Manual) 0.2 K/mm3 (1.2-5.4) L 09/03/21 06:05 Abs React Lymphs (Man) 0.0 K/mm3 09/03/21 06:05 Monocytes # (Manual) 0.2 K/mm3 (0.0-0.8) 09/03/21 06:05 Eosinophils # (Manual) 0.0 K/mm3 (0.0-0.4) 09/03/21 06:05 Basophils # (Manual) 0.0 K/mm3 (0.0-0.1) 09/03/21 06:05 Metamyelocytes # 0.0 K/mm3 09/03/21 06:05 Myelocytes # 0.0 K/mm3 09/03/21 06:05 Promyelocytes # 0.0 K/mm3 09/03/21 06:05 Blast Cells # 0.0 K/mm3 09/03/21 06:05 WBC Morphology Not Reportable 09/03/21 06:05 Hypersegmented Neuts Not Reportable 09/03/21 06:05 Hyposegmented Neuts Not Reportable 09/03/21 06:05 Hypogranular Neuts Not Reportable 09/03/21 06:05 Smudge Cells Not Reportable 09/03/21 06:05 Toxic Granulation Not Reportable 09/03/21 06:05 Toxic Vacuolation Not Reportable 09/03/21 06:05 Dohle Bodies Not Reportable 09/03/21 06:05 Pelger-Huet Anomaly Not Reportable 09/03/21 06:05 Janelle Rods Not Reportable 09/03/21 06:05 Platelet Estimate Consistent w auto 09/03/21 06:05 Clumped Platelets Not Reportable 09/03/21 06:05 Plt Clumps, EDTA Not Reportable 09/03/21 06:05 Large Platelets Not Reportable 09/03/21 06:05 Giant Platelets Not Reportable 09/03/21 06:05 Platelet Satelliting Not Reportable 09/03/21 06:05 Plt Morphology Comment Not Reportable 09/03/21 06:05 RBC Morphology Normal 09/03/21 06:05 Dimorphic RBCs Not Reportable 09/03/21 06:05 Polychromasia Not Reportable 09/03/21 06:05 Hypochromasia Not Reportable 09/03/21 06:05 Poikilocytosis 1+ 09/03/21 06:05 Anisocytosis Not Reportable 09/03/21 06:05 Microcytosis Not Reportable 09/03/21 06:05 Macrocytosis Not Reportable 09/03/21 06:05 Spherocytes Not Reportable 09/03/21 06:05 Pappenheimer Bodies Not Reportable 09/03/21 06:05 Sickle Cells Not Reportable 09/03/21 06:05 Target Cells Not Reportable 09/03/21 06:05 Tear Drop Cells Not Reportable 09/03/21 06:05 Ovalocytes Not Reportable 09/03/21 06:05 Stomatocytes 3+ 09/03/21 06:05 Helmet Cells Not Reportable 09/03/21 06:05 [place] Bodies Not Reportable 09/03/21 06:05 [place] Rings Not Reportable 09/03/21 06:05 [place] Cells Not Reportable 09/03/21 06:05 Bite Cells Not Reportable 09/03/21 06:05 Crenated Cell Not Reportable 09/03/21 06:05 Elliptocytes Not Reportable 09/03/21 06:05 Acanthocytes (Spur) Not Reportable 09/03/21 06:05 Rouleaux Not Reportable 09/03/21 06:05 Hemoglobin C Crystals Not Reportable 09/03/21 06:05 Schistocytes Not Reportable 09/03/21 06:05 Malaria parasites Not Reportable 09/03/21 06:05 Justin Bodies Not Reportable 09/03/21 06:05 Hem Pathologist Commnt No 09/03/21 06:05 D-Dimer 710.59 ng/mlDDU (0-234) H 08/31/21 19:32 ABG pH 7.240 pH Units (7.350-7.450) L 09/01/21 23:56 ABG pCO2 111.3 mm Hg 09/01/21 23:56 ABG pO2 198.0 mm Hg (80.0-90.0) H 09/01/21 23:56 ABG HCO3 46.6 mmol/L (20.0-26.0) H 09/01/21 23:56 ABG O2 Saturation 99.0 % (95.0-99.0) 09/01/21 23:56 ABG O2 Content 16.8 (0.0-44) 09/01/21 23:56 ABG Base Excess 14.8 mmol/L (-2.0-3.0) H 09/01/21 23:56 ABG Hemoglobin 12.0 gm/dl (12.0-16.0) 09/01/21 23:56 ABG Carboxyhemoglobin 1.6 % (0.0-5.0) 09/01/21 23:56 ABG Methemoglobin 0.6 % (0.0-1.5) 09/01/21 23:56 Oxyhemoglobin 96.8 % (95.0-99.0) 09/01/21 23:56 FiO2 60 % 09/01/21 23:56 Sodium 135 mmol/L (137-145) L 09/20/21 04:32 Potassium 4.9 mmol/L (3.6-5.0) 09/20/21 04:32 Chloride 92.3 mmol/L (98-107) L 09/20/21 04:32 Carbon Dioxide 33 mmol/L (22-30) H 09/20/21 04:32 Anion Gap 15 mmol/L 09/20/21 04:32 BUN 18 mg/dL (7-17) H 09/20/21 04:32 Creatinine 0.2 mg/dL (0.6-1.2) L 09/20/21 04:32 Estimated GFR > 60 ml/min 09/20/21 04:32 BUN/Creatinine Ratio 90 % 09/20/21 04:32 Glucose 264 mg/dL (65-100) H 09/20/21 04:32 POC Glucose 297 mg/dL (70-105) H 09/27/21 16:22 Calcium 9.0 mg/dL (8.4-10.2) 09/20/21 04:32 Magnesium 2.10 mg/dL (1.7-2.3) 09/08/21 04:31 Total Bilirubin 0.30 mg/dL (0.1-1.2) 09/03/21 06:05 AST 29 units/L (5-40) 09/03/21 06:05 ALT 71 units/L (7-56) H 09/03/21 06:05 Alkaline Phosphatase 82 units/L (35-129) 09/03/21 06:05 NT-Pro-B Natriuret Pep 524.1 pg/mL (0-450) H 08/31/21 19:32 Total Protein 7.0 g/dL (6.3-8.2) 09/03/21 06:05 Albumin 3.8 g/dL (3.9-5) L 09/03/21 06:05 Albumin/Globulin Ratio 1.2 % 09/03/21 06:05 HCG, Qual Negative (Negative) 08/31/21 19:32 Urine Color Yellow (Yellow) 09/10/21 07:00 Urine Turbidity Cloudy (Clear) 09/10/21 07:00 Urine pH 7.0 (5.0-7.0) 09/10/21 07:00 Ur Specific [place] 1.022 (1.003-1.030) 09/10/21 07:00 Urine Protein <15 mg/dl mg/dL (Negative) 09/10/21 07:00 Urine Glucose (UA) >=500 mg/dL (Negative) 09/10/21 07:00 Urine Ketones Neg mg/dL (Negative) 09/10/21 07:00 Urine Blood Sm (Negative) 09/10/21 07:00 Urine Nitrite Neg (Negative) 09/10/21 07:00 Urine Bilirubin Neg (Negative) 09/10/21 07:00 Urine Urobilinogen < 2.0 mg/dL (<2.0) 09/10/21 07:00 Ur Leukocyte Esterase Mod (Negative) 09/10/21 07:00 Urine WBC (Auto) 24.0 /HPF (0.0-6.0) H 09/10/21 07:00 Urine RBC (Auto) 17.0 /HPF (0.0-6.0) 09/10/21 07:00 U Epithel Cells (Auto) 3.0 /HPF (0-13.0) 09/10/21 07:00 Urine Bacteria (Auto) 2+ /HPF (Negative) 09/10/21 07:00 Calcium Oxalate Crystal Few 09/10/21 07:00 Urine Mucus 1+ /HPF 09/10/21 07:00 Ur Yeast w [place]pha[place] Few /HPF 09/10/21 07:00 Urine Yeast (Budding) Few /HPF 09/10/21 07:00 Amos/IV: Voiding Method External Female Catheter Active Medications - Current Medications Current Medications: Generic Name Dose Route Start Last Admin Trade Name Freq PRN Reason Stop Dose Admin Acetaminophen 650 mg 09/01/21 01:25 09/27/21 00:26 Acetaminophen 325 Mg Tab PO 650 mg Q4H PRN Administration Pain MILD(1-3)/Fever >100.5/[place] Albuterol 2.5 mg 09/01/21 01:25 09/14/21 14:56 Albuterol 2.5 Mg/3 Ml Nebu IH 2.5 mg Q3HRT PRN Administration Shortness Of Breath Alprazolam 1 mg 09/01/21 01:38 09/27/21 09:18 Alprazolam 1 Mg Tab PO 1 mg BID PRN Administration Agitation Clonidine HCl 0.2 mg 09/21/21 16:00 09/21/21 21:40 Clonidine Tts 0.2 Mg/24 Hr Patch TD 0.2 mg Sa TUTU Administration Dextrose 50 ml 09/01/21 01:25 Dextrose 50% In Water (25gm) 50 Ml Syringe IV Q30MIN PRN Hypoglycemia Protocol Famotidine 20 mg 09/01/21 10:00 09/27/21 09:18 Famotidine 20 Mg Tab PO 20 mg BID TUTU Administration Heparin Sodium (Porcine) 5,000 unit 09/01/21 06:00 09/27/21 15:24 Heparin 5,000 Unit/1 Ml Vial SUB-Q 5,000 unit Q8HR TUTU Administration Hydrocortisone Acetate 1 applic 09/21/21 15:00 Hydrocortisone 1% Cream 28.4gm TP Q8H PRN Skin Irritation Insulin Human Lispro 0 unit 09/01/21 07:30 09/27/21 17:33 Insulin Lispro 100 Unit/Ml SUB-Q 4 unit ACHS TUTU Administration Protocol Ondansetron HCl 4 mg 09/01/21 01:25 09/05/21 15:12 Ondansetron 4 Mg/2 Ml Inj IV 4 mg Q8H PRN Administration Nausea And Vomiting Prednisone 40 mg 09/27/21 11:00 09/27/21 12:29 Prednisone 20 Mg Tab PO 40 mg QDAY TUTU Administration Sodium Chloride 10 ml 09/01/21 10:00 09/27/21 09:18 Sodium Chloride 0.9% 10 Ml Flush Syringe IV 10 ml BID TTUU Administration Sodium Chloride 10 ml 09/01/21 01:25 09/26/21 05:41 Sodium Chloride 0.9% 10 Ml Flush Syringe IV 10 ml PRN PRN Administration LINE FLUSH Nutrition/Malnutrition Assess - Dietary Evaluation Nutrition/Malnutrition Findings: Nutrition Notes Start: 09/01/21 12:25 Freq: Status: Active Protocol: Document 09/16/21 15:34 SAQIB (Rec: 09/16/21 15:38 SAQIB [id number]) Nutrition Notes Initial or Follow up Brief Note Current Diet Consistent Carbohydrates Diet (since B 09/06). Height 5 ft 2 in Weight 54 kg [place] Body Weight (kg) 50.00 BMI 21.7 Weight change and time frame No body weight change reported . Weight Status Appropriate Subjective/Other Information RD consult on routine F/U on dietary tolerance. Pt's %PO intake of meals is Good (75-100%), according to ADL notes. Percent of energy/protein needs met: Prescribed Consistent Carbohydrates Diet provides for energy/protein needs (2, 061 Kcal/91 g) during LOS. Current % PO Good (75-100%) Nutrition Intervention Change Diet Order: Continue Consistent Carbohydrates Diet. Revisit per MD consult or patient Sign Off request: Additional Comments Continue monitoring food tolerance, %PO intake of meals and BM.
[2021-09-28] MEDS: HEPARIN 5,000 UNIT/1 ML VIAL SUB-Q SCH ×3 (05:33→21:34)
[2021-09-28 06:15] LABS: Basophils % (Auto) 0.3 % (0.0-1.8); Eosinophils % (Auto) 0.2 % (0.0-4.3); Hematocrit 40.5 % (30.3-42.9); Hemoglobin 12.7 gm/dl (10.1-14.3); Lymphocytes # (Auto) 0.6 K/mm3 (1.2-5.4); Lymphocytes % (Auto) 9.3 % (13.4-35.0); Mean Corpuscular HGB Conc 32 % (30-34); Mean Corpuscular Volume 91 fl (79-97); Monocytes # (Auto) 0.5 K/mm3 (0.0-0.8); Monocytes % (Auto) 7.7 % (0.0-7.3); Platelet Count 253 K/mm3 (140-440); Red Blood Count 4.46 M/mm3 (3.65-5.03); Red Cell Distribution Width 18.3 % (13.2-15.2)
[2021-09-28 06:25] LABS: Alanine Aminotransferase 63 units/L (7-56); Albumin 3.6 g/dL (3.9-5); Blood Urea Nitrogen 21 mg/dL (7-17); Calcium 9.6 mg/dL (8.4-10.2); Hemolysis Index 67
[2021-09-28 06:26] LABS: BUN/Creatinine Ratio 105
[2021-09-28] MEDS: INSULIN LISPRO 100 UNIT/ML SUB-Q SCH ×3 (08:39→18:01)
--- NOTE | 2021-09-28 08:44 | Progress Note ---
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 Down to 3 liters with good sats. Taper prednisone as follows: 40 daily for 4 more days, then 30 daily for 5 days, then 20 daily for 5 days, then 10 daily for 5 days then stop. Has been discharged with oxygen in the past but I do not know if they have it home or not. 09/26/21: Reviewed IMS note from yesterday. Family plans to transport patient to [place] via [facility]? Encourage aggressive weaning of FIO2. Will change steroids today. 09/24/21: WIll change to 40 of prednisone daily starting today. Wean HFNC. 09/20/21: Currently on 20q8, which is about 60 of prednisone daily. Suggest dropping to either 20q12 or change to 40 of prednisone daily starting tomorrow. Wean FiO2 for sats >88%. Will see as needed over the weekend. I am back on Thursday. 09/18/21: Lasix made no improvement. So will not repeat. Will drop steroids to 20q8 starting now. 09/16/21: Lasix 20mg IV x1 today. Prone as tolerated. Wean Flow and FiO2 for sats >88% 09/12/21: No new recs. Will drop steroids to 40q8 09/10/21: Please be more aggressive with oxygen weaning. Will consider weaning steroids again or Thursday. 09/08/21: Continue steroids at current dosing. Wean Fio2 for sats >88%. 09/06/21: Will drop steroids to 60 q8 starting now. 09/04/21: Will start to taper steroids today. Continue to wean FiO2 as shaan ated. Anxiety control. High dose steroids Anxiety therapy Wean FiO2 as tolerated ABG not indicated currently as she is sleepy from IV ativan administered because she is NPO and could not get her xanax Subjective Date of service: 09/28/21 Interval history: patient weaned to 3 liters NC. Objective Vital Signs - 12hr 09/27/21 09/27/21 09/27/21 20:52 21:02 23:15 Temperature 97.3 F L Pulse Rate 95 H Respiratory 16 Rate Blood Pressure 113/63 O2 Sat by Pulse 97 100 100 Oximetry 09/28/21 09/28/21 09/28/21 01:39 03:53 07:57 Temperature 97.4 F L Pulse Rate 88 Respiratory 18 Rate Blood Pressure 101/66 O2 Sat by Pulse 100 100 97 Oximetry Constitutional: no acute distress ENT: oropharynx moist Neck: supple Ascultation: Bilateral: diminished breath sounds Cardiovascular: regular rate and rhythm Gastrointestinal: normoactive bowel sounds, soft, non-tender Integumentary: normal Extremities: no cyanosis Neurologic: normal mental status CBC and BMP: 09/28/21 05:38 09/28/21 05:38 ABG, PT/INR, D-dimer: ABG ABG pH 7.240 pH Units (7.350-7.450) L 09/01/21 23:56 ABG pCO2 111.3 mm Hg 09/01/21 23:56 ABG pO2 198.0 mm Hg (80.0-90.0) H 09/01/21 23:56 ABG O2 Saturation 99.0 % (95.0-99.0) 09/01/21 23:56 PT/INR, D-dimer D-Dimer 710.59 ng/mlDDU (0-234) H 08/31/21 19:32 Abnormal lab findings: Abnormal Labs 08/31/21 08/31/21 08/31/21 19:32 19:32 19:32 Hct RDW 16.4 H Lymph % (Auto) [place] % (Auto) 9.0 H Lymph # (Auto) [place] # (Auto) 1.0 H Seg Neutrophils % 76.2 H Seg Neuts % (Manual) Lymphocytes % (Manual) Seg Neutrophils # 8.3 H Lymphocytes # (Manual) D-Dimer 710.59 H ABG pH ABG pO2 ABG HCO3 ABG O2 Saturation ABG Base Excess Sodium Potassium Chloride 92.7 L Carbon Dioxide 36 H BUN Creatinine 0.4 L D Glucose 249 H POC Glucose Calcium ALT NT-Pro-B Natriuret Pep Total Protein Albumin Urine WBC (Auto) 08/31/21 08/31/21 09/01/21 19:32 21:05 09:24 Hct RDW Lymph % (Auto) [place] % (Auto) Lymph # (Auto) [place] # (Auto) Seg Neutrophils % Seg Neuts % (Manual) Lymphocytes % (Manual) Seg Neutrophils # Lymphocytes # (Manual) D-Dimer ABG pH 7.244 L ABG pO2 307.7 H ABG HCO3 47.9 H ABG O2 Saturation 99.4 H ABG Base Excess 16.0 H Sodium Potassium Chloride Carbon Dioxide BUN Creatinine Glucose POC Glucose 106 H Calcium ALT NT-Pro-B Natriuret Pep 524.1 H Total Protein Albumin Urine WBC (Auto) 09/01/21 09/01/21 09/01/21 13:39 16:22 23:56 Hct RDW Lymph % (Auto) [place] % (Auto) Lymph # (Auto) [place] # (Auto) Seg Neutrophils % Seg Neuts % (Manual) Lymphocytes % (Manual) Seg Neutrophils # Lymphocytes # (Manual) D-Dimer ABG pH 7.240 L ABG pO2 198.0 H ABG HCO3 46.6 H ABG O2 Saturation ABG Base Excess 14.8 H Sodium Potassium Chloride Carbon Dioxide BUN Creatinine Glucose POC Glucose 154 H 188 H Calcium ALT NT-Pro-B Natriuret Pep Total Protein Albumin Urine WBC (Auto) 09/02/21 09/02/21 09/02/21 01:49 07:22 07:22 Hct RDW 16.4 H Lymph % (Auto) [place] % (Auto) Lymph # (Auto) [place] # (Auto) Seg Neutrophils % Seg Neuts % (Manual) 97.0 H Lymphocytes % (Manual) 2.0 L Seg Neutrophils # Lymphocytes # (Manual) 0.1 L D-Dimer ABG pH ABG pO2 ABG HCO3 ABG O2 Saturation ABG Base Excess Sodium Potassium Chloride 82.7 L Carbon Dioxide 41 H* BUN 21 H Creatinine 0.3 L Glucose 198 H POC Glucose 132 H Calcium ALT NT-Pro-B Natriuret Pep Total Protein Albumin Urine WBC (Auto) 09/02/21 09/02/21 09/02/21 08:29 11:27 16:59 Hct RDW Lymph % (Auto) [place] % (Auto) Lymph # (Auto) [place] # (Auto) Seg Neutrophils % Seg Neuts % (Manual) Lymphocytes % (Manual) Seg Neutrophils # Lymphocytes # (Manual) D-Dimer ABG pH ABG pO2 ABG HCO3 ABG O2 Saturation ABG Base Excess Sodium Potassium Chloride Carbon Dioxide BUN Creatinine Glucose POC Glucose 201 H 232 H 118 H Calcium ALT NT-Pro-B Natriuret Pep Total Protein Albumin Urine WBC (Auto) 1209/03/21 09/03/21 22:08 06:05 06:05 Hct RDW 16.5 H Lymph % (Auto) [place] % (Auto) Lymph # (Auto) [place] # (Auto) Seg Neutrophils % Seg Neuts % (Manual) 94.0 H Lymphocytes % (Manual) 3.0 L Seg Neutrophils # Lymphocytes # (Manual) 0.2 L D-Dimer ABG pH ABG pO2 ABG HCO3 ABG O2 Saturation ABG Base Excess Sodium Potassium Chloride 79.3 L Carbon Dioxide 52 H* D BUN 27 H Creatinine 0.2 L Glucose 228 H POC Glucose 241 H Calcium 10.4 H ALT 71 H NT-Pro-B Natriuret Pep Total Protein Albumin 3.8 L Urine WBC (Auto) 09/03/21 09/03/21 09/03/21 07:53 11:37 15:52 Hct RDW Lymph % (Auto) [place] % (Auto) Lymph # (Auto) [place] # (Auto) Seg Neutrophils % Seg Neuts % (Manual) Lymphocytes % (Manual) Seg Neutrophils # Lymphocytes # (Manual) D-Dimer ABG pH ABG pO2 ABG HCO3 ABG O2 Saturation ABG Base Excess Sodium Potassium Chloride Carbon Dioxide BUN Creatinine Glucose POC Glucose 241 H 202 H 284 H Calcium ALT NT-Pro-B Natriuret Pep Total Protein Albumin Urine WBC (Auto) 09/03/21 09/04/21 09/04/21 22:07 08:33 11:16 Hct RDW Lymph % (Auto) [place] % (Auto) Lymph # (Auto) [place] # (Auto) Seg Neutrophils % Seg Neuts % (Manual) Lymphocytes % (Manual) Seg Neutrophils # Lymphocytes # (Manual) D-Dimer ABG pH ABG pO2 ABG HCO3 ABG O2 Saturation ABG Base Excess Sodium Potassium Chloride Carbon Dioxide BUN Creatinine Glucose POC Glucose 311 H 232 H 356 H Calcium ALT NT-Pro-B Natriuret Pep Total Protein Albumin Urine WBC (Auto) 09/04/21 09/04/21 09/05/21 17:10 23:05 08:08 Hct RDW Lymph % (Auto) [place] % (Auto) Lymph # (Auto) [place] # (Auto) Seg Neutrophils % Seg Neuts % (Manual) Lymphocytes % (Manual) Seg Neutrophils # Lymphocytes # (Manual) D-Dimer ABG pH ABG pO2 ABG HCO3 ABG O2 Saturation ABG Base Excess Sodium Potassium Chloride Carbon Dioxide BUN Creatinine Glucose POC Glucose 328 H 150 H 342 H Calcium ALT NT-Pro-B Natriuret Pep Total Protein Albumin Urine WBC (Auto) 09/05/21 09/05/21 09/05/21 11:04 13:23 13:23 Hct RDW 17.1 H Lymph % (Auto) [place] % (Auto) Lymph # (Auto) [place] # (Auto) Seg Neutrophils % Seg Neuts % (Manual) Lymphocytes % (Manual) Seg Neutrophils # Lymphocytes # (Manual) D-Dimer ABG pH ABG pO2 ABG HCO3 ABG O2 Saturation ABG Base Excess Sodium Potassium 2.6 L* D Chloride 74.4 L Carbon Dioxide 46 H* BUN Creatinine 0.3 L Glucose 389 H POC Glucose 395 H Calcium ALT NT-Pro-B Natriuret Pep Total Protein Albumin Urine WBC (Auto) 09/05/21 09/05/21 09/06/21 16:22 21:09 08:02 Hct RDW Lymph % (Auto) [place] % (Auto) Lymph # (Auto) [place] # (Auto) Seg Neutrophils % Seg Neuts % (Manual) Lymphocytes % (Manual) Seg Neutrophils # Lymphocytes # (Manual) D-Dimer ABG pH ABG pO2 ABG HCO3 ABG O2 Saturation ABG Base Excess Sodium Potassium Chloride Carbon Dioxide BUN Creatinine Glucose POC Glucose 195 H 243 H 119 H Calcium ALT NT-Pro-B Natriuret Pep Total Protein Albumin Urine WBC (Auto) 09/06/21 09/06/21 09/06/21 11:00 11:19 16:06 Hct RDW Lymph % (Auto) [place] % (Auto) Lymph # (Auto) [place] # (Auto) Seg Neutrophils % Seg Neuts % (Manual) Lymphocytes % (Manual) Seg Neutrophils # Lymphocytes # (Manual) D-Dimer ABG pH ABG pO2 ABG HCO3 ABG O2 Saturation ABG Base Excess Sodium 136 L Potassium Chloride 78.3 L Carbon Dioxide 47 H* BUN Creatinine 0.3 L Glucose 354 H POC Glucose 309 H 381 H Calcium ALT NT-Pro-B Natriuret Pep Total Protein Albumin Urine WBC (Auto) 09/06/21 09/07/21 09/07/21 22:25 11:11 16:50 Hct RDW Lymph % (Auto) [place] % (Auto) Lymph # (Auto) [place] # (Auto) Seg Neutrophils % Seg Neuts % (Manual) Lymphocytes % (Manual) Seg Neutrophils # Lymphocytes # (Manual) D-Dimer ABG pH ABG pO2 ABG HCO3 ABG O2 Saturation ABG Base Excess Sodium Potassium Chloride Carbon Dioxide BUN Creatinine Glucose POC Glucose 217 H 442 H 222 H Calcium ALT NT-Pro-B Natriuret Pep Total Protein Albumin Urine WBC (Auto) 09/07/21 09/08/21 09/08/21 21:52 04:31 04:31 Hct 44.9 H RDW 17.2 H Lymph % (Auto) 12.3 L [place] % (Auto) Lymph # (Auto) 1.0 L [place] # (Auto) Seg Neutrophils % 79.1 H Seg Neuts % (Manual) Lymphocytes % (Manual) Seg Neutrophils # Lymphocytes # (Manual) D-Dimer ABG pH ABG pO2 ABG HCO3 ABG O2 Saturation ABG Base Excess Sodium Potassium 2.8 L* D Chloride 87.6 L Carbon Dioxide 45 H* BUN Creatinine 0.2 L Glucose 46 L POC Glucose 360 H Calcium ALT NT-Pro-B Natriuret Pep Total Protein Albumin Urine WBC (Auto) 09/08/21 09/08/21 09/08/21 05:25 05:53 11:50 Hct RDW Lymph % (Auto) [place] % (Auto) Lymph # (Auto) [place] # (Auto) Seg Neutrophils % Seg Neuts % (Manual) Lymphocytes % (Manual) Seg Neutrophils # Lymphocytes # (Manual) D-Dimer ABG pH ABG pO2 ABG HCO3 ABG O2 Saturation ABG Base Excess Sodium Potassium Chloride Carbon Dioxide BUN Creatinine Glucose POC Glucose 39 L 64 L 280 H Calcium ALT NT-Pro-B Natriuret Pep Total Protein Albumin Urine WBC (Auto) 09/08/21 09/08/21 09/09/21 16:20 21:32 07:20 Hct RDW Lymph % (Auto) [place] % (Auto) Lymph # (Auto) [place] # (Auto) Seg Neutrophils % Seg Neuts % (Manual) Lymphocytes % (Manual) Seg Neutrophils # Lymphocytes # (Manual) D-Dimer ABG pH ABG pO2 ABG HCO3 ABG O2 Saturation ABG Base Excess Sodium Potassium Chloride Carbon Dioxide BUN Creatinine Glucose POC Glucose 256 H 203 H 194 H Calcium ALT NT-Pro-B Natriuret Pep Total Protein Albumin Urine WBC (Auto) 09/09/21 09/09/21 09/09/21 07:50 11:13 16:20 Hct RDW Lymph % (Auto) [place] % (Auto) Lymph # (Auto) [place] # (Auto) Seg Neutrophils % Seg Neuts % (Manual) Lymphocytes % (Manual) Seg Neutrophils # Lymphocytes # (Manual) D-Dimer ABG pH ABG pO2 ABG HCO3 ABG O2 Saturation ABG Base Excess Sodium Potassium Chloride 88.8 L Carbon Dioxide 39 H BUN Creatinine < 0.2 L Glucose 197 H POC Glucose 258 H 231 H Calcium ALT NT-Pro-B Natriuret Pep Total Protein Albumin Urine WBC (Auto) 09/09/21 09/10/21 09/10/21 22:17 07:00 08:02 Hct RDW Lymph % (Auto) [place] % (Auto) Lymph # (Auto) [place] # (Auto) Seg Neutrophils % Seg Neuts % (Manual) Lymphocytes % (Manual) Seg Neutrophils # Lymphocytes # (Manual) D-Dimer ABG pH ABG pO2 ABG HCO3 ABG O2 Saturation ABG Base Excess Sodium Potassium Chloride Carbon Dioxide BUN Creatinine Glucose POC Glucose 222 H 213 H Calcium ALT NT-Pro-B Natriuret Pep Total Protein Albumin Urine WBC (Auto) 24.0 H 09/10/21 09/10/21 09/10/21 11:22 15:49 22:08 Hct RDW Lymph % (Auto) [place] % (Auto) Lymph # (Auto) [place] # (Auto) Seg Neutrophils % Seg Neuts % (Manual) Lymphocytes % (Manual) Seg Neutrophils # Lymphocytes # (Manual) D-Dimer ABG pH ABG pO2 ABG HCO3 ABG O2 Saturation ABG Base Excess Sodium Potassium Chloride Carbon Dioxide BUN Creatinine Glucose POC Glucose 241 H 201 H 212 H Calcium ALT NT-Pro-B Natriuret Pep Total Protein Albumin Urine WBC (Auto) 09/11/21 09/11/21 09/11/21 08:01 11:21 16:41 Hct RDW Lymph % (Auto) [place] % (Auto) Lymph # (Auto) [place] # (Auto) Seg Neutrophils % Seg Neuts % (Manual) Lymphocytes % (Manual) Seg Neutrophils # Lymphocytes # (Manual) D-Dimer ABG pH ABG pO2 ABG HCO3 ABG O2 Saturation ABG Base Excess Sodium Potassium Chloride Carbon Dioxide BUN Creatinine Glucose POC Glucose 207 H 265 H 234 H Calcium ALT NT-Pro-B Natriuret Pep Total Protein Albumin Urine WBC (Auto) 09/11/21 09/12/21 09/12/21 22:09 08:38 11:28 Hct RDW Lymph % (Auto) [place] % (Auto) Lymph # (Auto) [place] # (Auto) Seg Neutrophils % Seg Neuts % (Manual) Lymphocytes % (Manual) Seg Neutrophils # Lymphocytes # (Manual) D-Dimer ABG pH ABG pO2 ABG HCO3 ABG O2 Saturation ABG Base Excess Sodium Potassium Chloride Carbon Dioxide BUN Creatinine Glucose POC Glucose 293 H 222 H 326 H Calcium ALT NT-Pro-B Natriuret Pep Total Protein Albumin Urine WBC (Auto) 09/12/21 09/12/21 09/13/21 16:25 21:45 07:41 Hct RDW Lymph % (Auto) [place] % (Auto) Lymph # (Auto) [place] # (Auto) Seg Neutrophils % Seg Neuts % (Manual) Lymphocytes % (Manual) Seg Neutrophils # Lymphocytes # (Manual) D-Dimer ABG pH ABG pO2 ABG HCO3 ABG O2 Saturation ABG Base Excess Sodium Potassium Chloride Carbon Dioxide BUN Creatinine Glucose POC Glucose 130 H 191 H 165 H Calcium ALT NT-Pro-B Natriuret Pep Total Protein Albumin Urine WBC (Auto) 09/13/21 09/13/21 09/13/21 11:12 16:59 22:01 Hct RDW Lymph % (Auto) [place] % (Auto) Lymph # (Auto) [place] # (Auto) Seg Neutrophils % Seg Neuts % (Manual) Lymphocytes % (Manual) Seg Neutrophils # Lymphocytes # (Manual) D-Dimer ABG pH ABG pO2 ABG HCO3 ABG O2 Saturation ABG Base Excess Sodium Potassium Chloride Carbon Dioxide BUN Creatinine Glucose POC Glucose 263 H 162 H 276 H Calcium ALT NT-Pro-B Natriuret Pep Total Protein Albumin Urine WBC (Auto) 09/14/21 09/14/21 09/14/21 08:12 12:28 16:30 Hct RDW Lymph % (Auto) [place] % (Auto) Lymph # (Auto) [place] # (Auto) Seg Neutrophils % Seg Neuts % (Manual) Lymphocytes % (Manual) Seg Neutrophils # Lymphocytes # (Manual) D-Dimer ABG pH ABG pO2 ABG HCO3 ABG O2 Saturation ABG Base Excess Sodium Potassium Chloride Carbon Dioxide BUN Creatinine Glucose POC Glucose 179 H 212 H 227 H Calcium ALT NT-Pro-B Natriuret Pep Total Protein Albumin Urine WBC (Auto) 09/14/21 09/15/21 09/15/21 22:56 12:12 18:05 Hct RDW Lymph % (Auto) [place] % (Auto) Lymph # (Auto) [place] # (Auto) Seg Neutrophils % Seg Neuts % (Manual) Lymphocytes % (Manual) Seg Neutrophils # Lymphocytes # (Manual) D-Dimer ABG pH ABG pO2 ABG HCO3 ABG O2 Saturation ABG Base Excess Sodium Potassium Chloride Carbon Dioxide BUN Creatinine Glucose POC Glucose 275 H 297 H 247 H Calcium ALT NT-Pro-B Natriuret Pep Total Protein Albumin Urine WBC (Auto) 09/15/21 09/16/21 09/16/21 22:21 07:51 11:22 Hct RDW Lymph % (Auto) [place] % (Auto) Lymph # (Auto) [place] # (Auto) Seg Neutrophils % Seg Neuts % (Manual) Lymphocytes % (Manual) Seg Neutrophils # Lymphocytes # (Manual) D-Dimer ABG pH ABG pO2 ABG HCO3 ABG O2 Saturation ABG Base Excess Sodium Potassium Chloride Carbon Dioxide BUN Creatinine Glucose POC Glucose 309 H 196 H 278 H Calcium ALT NT-Pro-B Natriuret Pep Total Protein Albumin Urine WBC (Auto) 09/16/21 09/16/21 09/17/21 16:10 21:56 07:45 Hct RDW Lymph % (Auto) [place] % (Auto) Lymph # (Auto) [place] # (Auto) Seg Neutrophils % Seg Neuts % (Manual) Lymphocytes % (Manual) Seg Neutrophils # Lymphocytes # (Manual) D-Dimer ABG pH ABG pO2 ABG HCO3 ABG O2 Saturation ABG Base Excess Sodium Potassium Chloride Carbon Dioxide BUN Creatinine Glucose POC Glucose 264 H 246 H 174 H Calcium ALT NT-Pro-B Natriuret Pep Total Protein Albumin Urine WBC (Auto) 09/17/21 09/17/21 09/17/21 11:25 15:43 21:19 Hct RDW Lymph % (Auto) [place] % (Auto) Lymph # (Auto) [place] # (Auto) Seg Neutrophils % Seg Neuts % (Manual) Lymphocytes % (Manual) Seg Neutrophils # Lymphocytes # (Manual) D-Dimer ABG pH ABG pO2 ABG HCO3 ABG O2 Saturation ABG Base Excess Sodium Potassium Chloride Carbon Dioxide BUN Creatinine Glucose POC Glucose 275 H 242 H 255 H Calcium ALT NT-Pro-B Natriuret Pep Total Protein Albumin Urine WBC (Auto) 09/18/21 09/18/21 09/18/21 08:00 11:50 17:30 Hct RDW Lymph % (Auto) [place] % (Auto) Lymph # (Auto) [place] # (Auto) Seg Neutrophils % Seg Neuts % (Manual) Lymphocytes % (Manual) Seg Neutrophils # Lymphocytes # (Manual) D-Dimer ABG pH ABG pO2 ABG HCO3 ABG O2 Saturation ABG Base Excess Sodium Potassium Chloride Carbon Dioxide BUN Creatinine Glucose POC Glucose 170 H 244 H 218 H Calcium ALT NT-Pro-B Natriuret Pep Total Protein Albumin Urine WBC (Auto) 09/18/21 09/19/21 09/19/21 22:32 12:20 14:00 Hct RDW 18.6 H Lymph % (Auto) [place] % (Auto) Lymph # (Auto) [place] # (Auto) Seg Neutrophils % Seg Neuts % (Manual) Lymphocytes % (Manual) Seg Neutrophils # Lymphocytes # (Manual) D-Dimer ABG pH ABG pO2 ABG HCO3 ABG O2 Saturation ABG Base Excess Sodium Potassium Chloride Carbon Dioxide BUN Creatinine Glucose POC Glucose 295 H 220 H Calcium ALT NT-Pro-B Natriuret Pep Total Protein Albumin Urine WBC (Auto) 09/19/21 09/19/21 09/19/21 14:00 18:32 21:19 Hct RDW Lymph % (Auto) [place] % (Auto) Lymph # (Auto) [place] # (Auto) Seg Neutrophils % Seg Neuts % (Manual) Lymphocytes % (Manual) Seg Neutrophils # Lymphocytes # (Manual) D-Dimer ABG pH ABG pO2 ABG HCO3 ABG O2 Saturation ABG Base Excess Sodium 136 L Potassium 5.7 H Chloride 92.1 L Carbon Dioxide 37 H BUN 21 H Creatinine 0.2 L Glucose 230 H POC Glucose 173 H 190 H Calcium ALT NT-Pro-B Natriuret Pep Total Protein Albumin Urine WBC (Auto) 09/20/21 09/20/21 09/20/21 04:32 07:57 11:06 Hct RDW Lymph % (Auto) [place] % (Auto) Lymph # (Auto) [place] # (Auto) Seg Neutrophils % Seg Neuts % (Manual) Lymphocytes % (Manual) Seg Neutrophils # Lymphocytes # (Manual) D-Dimer ABG pH ABG pO2 ABG HCO3 ABG O2 Saturation ABG Base Excess Sodium 135 L Potassium Chloride 92.3 L Carbon Dioxide 33 H BUN 18 H Creatinine 0.2 L Glucose 264 H POC Glucose 237 H 232 H Calcium ALT NT-Pro-B Natriuret Pep Total Protein Albumin Urine WBC (Auto) 09/20/21 09/20/21 09/21/21 15:19 20:04 07:24 Hct RDW Lymph % (Auto) [place] % (Auto) Lymph # (Auto) [place] # (Auto) Seg Neutrophils % Seg Neuts % (Manual) Lymphocytes % (Manual) Seg Neutrophils # Lymphocytes # (Manual) D-Dimer ABG pH ABG pO2 ABG HCO3 ABG O2 Saturation ABG Base Excess Sodium Potassium Chloride Carbon Dioxide BUN Creatinine Glucose POC Glucose 195 H 209 H 58 L Calcium ALT NT-Pro-B Natriuret Pep Total Protein Albumin Urine WBC (Auto) 09/21/21 09/21/21 09/21/21 11:42 15:48 21:10 Hct RDW Lymph % (Auto) [place] % (Auto) Lymph # (Auto) [place] # (Auto) Seg Neutrophils % Seg Neuts % (Manual) Lymphocytes % (Manual) Seg Neutrophils # Lymphocytes # (Manual) D-Dimer ABG pH ABG pO2 ABG HCO3 ABG O2 Saturation ABG Base Excess Sodium Potassium Chloride Carbon Dioxide BUN Creatinine Glucose POC Glucose 137 H 192 H 321 H Calcium ALT NT-Pro-B Natriuret Pep Total Protein Albumin Urine WBC (Auto) 09/22/21 09/22/21 09/22/21 07:31 11:20 16:08 Hct RDW Lymph % (Auto) [place] % (Auto) Lymph # (Auto) [place] # (Auto) Seg Neutrophils % Seg Neuts % (Manual) Lymphocytes % (Manual) Seg Neutrophils # Lymphocytes # (Manual) D-Dimer ABG pH ABG pO2 ABG HCO3 ABG O2 Saturation ABG Base Excess Sodium Potassium Chloride Carbon Dioxide BUN Creatinine Glucose POC Glucose 189 H 186 H 182 H Calcium ALT NT-Pro-B Natriuret Pep Total Protein Albumin Urine WBC (Auto) 09/22/21 09/23/21 09/23/21 21:55 08:02 12:09 Hct RDW Lymph % (Auto) [place] % (Auto) Lymph # (Auto) [place] # (Auto) Seg Neutrophils % Seg Neuts % (Manual) Lymphocytes % (Manual) Seg Neutrophils # Lymphocytes # (Manual) D-Dimer ABG pH ABG pO2 ABG HCO3 ABG O2 Saturation ABG Base Excess Sodium Potassium Chloride Carbon Dioxide BUN Creatinine Glucose POC Glucose 235 H 114 H 176 H Calcium ALT NT-Pro-B Natriuret Pep Total Protein Albumin Urine WBC (Auto) 09/23/21 09/23/21 09/24/21 17:21 20:20 07:50 Hct RDW Lymph % (Auto) [place] % (Auto) Lymph # (Auto) [place] # (Auto) Seg Neutrophils % Seg Neuts % (Manual) Lymphocytes % (Manual) Seg Neutrophils # Lymphocytes # (Manual) D-Dimer ABG pH ABG pO2 ABG HCO3 ABG O2 Saturation ABG Base Excess Sodium Potassium Chloride Carbon Dioxide BUN Creatinine Glucose POC Glucose 186 H 167 H 69 L Calcium ALT NT-Pro-B Natriuret Pep Total Protein Albumin Urine WBC (Auto) 09/24/21 09/24/21 09/24/21 11:22 16:12 20:27 Hct RDW Lymph % (Auto) [place] % (Auto) Lymph # (Auto) [place] # (Auto) Seg Neutrophils % Seg Neuts % (Manual) Lymphocytes % (Manual) Seg Neutrophils # Lymphocytes # (Manual) D-Dimer ABG pH ABG pO2 ABG HCO3 ABG O2 Saturation ABG Base Excess Sodium Potassium Chloride Carbon Dioxide BUN Creatinine Glucose POC Glucose 230 H 193 H 252 H Calcium ALT NT-Pro-B Natriuret Pep Total Protein Albumin Urine WBC (Auto) 09/25/21 09/25/21 09/25/21 07:45 11:24 15:04 Hct RDW Lymph % (Auto) [place] % (Auto) Lymph # (Auto) [place] # (Auto) Seg Neutrophils % Seg Neuts % (Manual) Lymphocytes % (Manual) Seg Neutrophils # Lymphocytes # (Manual) D-Dimer ABG pH ABG pO2 ABG HCO3 ABG O2 Saturation ABG Base Excess Sodium Potassium Chloride Carbon Dioxide BUN Creatinine Glucose POC Glucose 46 L 161 H 165 H Calcium ALT NT-Pro-B Natriuret Pep Total Protein Albumin Urine WBC (Auto) 09/25/21 09/26/21 09/26/21 21:04 07:33 11:16 Hct RDW Lymph % (Auto) [place] % (Auto) Lymph # (Auto) [place] # (Auto) Seg Neutrophils % Seg Neuts % (Manual) Lymphocytes % (Manual) Seg Neutrophils # Lymphocytes # (Manual) D-Dimer ABG pH ABG pO2 ABG HCO3 ABG O2 Saturation ABG Base Excess Sodium Potassium Chloride Carbon Dioxide BUN Creatinine Glucose POC Glucose 263 H 207 H 179 H Calcium ALT NT-Pro-B Natriuret Pep Total Protein Albumin Urine WBC (Auto) 09/26/21 09/26/21 09/27/21 15:54 21:02 07:42 Hct RDW Lymph % (Auto) [place] % (Auto) Lymph # (Auto) [place] # (Auto) Seg Neutrophils % Seg Neuts % (Manual) Lymphocytes % (Manual) Seg Neutrophils # Lymphocytes # (Manual) D-Dimer ABG pH ABG pO2 ABG HCO3 ABG O2 Saturation ABG Base Excess Sodium Potassium Chloride Carbon Dioxide BUN Creatinine Glucose POC Glucose 128 H 122 H 192 H Calcium ALT NT-Pro-B Natriuret Pep Total Protein Albumin Urine WBC (Auto) 09/27/21 09/27/21 09/27/21 12:01 16:22 20:48 Hct RDW Lymph % (Auto) [place] % (Auto) Lymph # (Auto) [place] # (Auto) Seg Neutrophils % Seg Neuts % (Manual) Lymphocytes % (Manual) Seg Neutrophils # Lymphocytes # (Manual) D-Dimer ABG pH ABG pO2 ABG HCO3 ABG O2 Saturation ABG Base Excess Sodium Potassium Chloride Carbon Dioxide BUN Creatinine Glucose POC Glucose 264 H 297 H 263 H Calcium ALT NT-Pro-B Natriuret Pep Total Protein Albumin Urine WBC (Auto) 09/28/21 09/28/21 09/28/21 05:38 05:38 07:33 Hct RDW 18.3 H Lymph % (Auto) 9.3 L [place] % (Auto) 7.7 H Lymph # (Auto) 0.6 L [place] # (Auto) Seg Neutrophils % 82.5 H Seg Neuts % (Manual) Lymphocytes % (Manual) Seg Neutrophils # Lymphocytes # (Manual) D-Dimer ABG pH ABG pO2 ABG HCO3 ABG O2 Saturation ABG Base Excess Sodium 134 L Potassium Chloride 87.4 L Carbon Dioxide 39 H BUN 21 H Creatinine < 0.2 L Glucose 154 H POC Glucose 144 H Calcium ALT 63 H NT-Pro-B Natriuret Pep Total Protein 6.0 L Albumin 3.6 L Urine WBC (Auto)
[2021-09-28] MEDS: predniSONE 20 MG TAB PO SCH (09:56)
[2021-09-28] MEDS: ALPRAZolam 1 MG TAB PO PRN ×2 (09:56→21:34)
[2021-09-28] MEDS: FAMOTIDINE 20 MG TAB PO SCH ×2 (09:56→21:34)
[2021-09-28] MEDS: cloNIDine TTS 0.2 MG/24 HR PATCH TD SCH (18:01)
--- NOTE | 2021-09-28 19:49 | Progress Note ---
Assessment and Plan - Patient Problems (1) Acute hypercapnic respiratory failure Current Visit: Yes Status: Acute Plan to address problem: Supplemental oxygen, supportive care, pulmonary toilet. Patient medically optimized at this time. Discharge to home hospice care. (2) Debility Current Visit: Yes Status: Acute Plan to address problem: Supportive care, range of motion exercises as tolerated (3) Pulmonary fibrosis, postinflammatory Current Visit: Yes Status: Acute Plan to address problem: Supportive care, steroid therapy, continue medical management. (4) Coronavirus infection Current Visit: No Status: Acute Plan to address problem: Resolved, supportive care. (5) Advance care planning Current Visit: No Status: Acute Plan to address problem: Disease education conducted, care plan discussed, diagnosis discussed, prognosis discussed, patient is full code. Patient knowledges understanding and agreement with care plan, +30 minutes. History Interval history: 50 YO Female HD #28 with Sepsis, Acute on Chronic Respiratory Failure, Pulmonary Fibrosis S/P coronavirus infection. Patient has poor prognosis. Patient p ending discharge to home hospice care. No reported nursing events. Patient medically optimized at this time. Hospitalist Physical - Constitutional Vitals: Temp Pulse Resp BP Pulse Ox 97.8 F 92 H 18 103/66 100 09/28/21 07:23 09/28/21 07:23 09/28/21 07:23 09/28/21 07:23 09/28/21 09:16 General appearance: Present: mild distress, cachectic, other (On 8 L oxygen, alert and awake) - EENT Eyes: Present: PERRL ENT: hearing intact - Neck Neck: Present: supple - Respiratory Respiratory effort: labored Respiratory: bilateral: diminished - Cardiovascular Rhythm: regular Heart Sounds: Present: S1 & S2 - Extremities Extremities: no ischemia Peripheral Pulses: within normal limits - Abdominal General gastrointestinal: soft, non-tender, non-distended - Integumentary Integumentary: Present: clear, dry - Psychiatric Psychiatric: cooperative - Neurologic Neurologic: CNII-XII intact Results - Labs CBC & Chem 7: 09/28/21 05:38 09/28/21 05:38 Labs: Laboratory Last Values WBC 5.9 K/mm3 (4.5-11.0) 09/28/21 05:38 RBC 4.46 M/mm3 (3.65-5.03) 09/28/21 05:38 Hgb 12.7 gm/dl (10.1-14.3) 09/28/21 05:38 Hct 40.5 % (30.3-42.9) 09/28/21 05:38 MCV 91 fl (79-97) 09/28/21 05:38 MCH 29 pg (28-32) 09/28/21 05:38 MCHC 32 % (30-34) 09/28/21 05:38 RDW 18.3 % (13.2-15.2) H 09/28/21 05:38 Plt Count 253 K/mm3 (140-440) 09/28/21 05:38 Lymph % (Auto) 9.3 % (13.4-35.0) L 09/28/21 05:38 [place] % (Auto) 7.7 % (0.0-7.3) H 09/28/21 05:38 Eos % (Auto) 0.2 % (0.0-4.3) 09/28/21 05:38 Baso % (Auto) 0.3 % (0.0-1.8) 09/28/21 05:38 Lymph # (Auto) 0.6 K/mm3 (1.2-5.4) L 09/28/21 05:38 [place] # (Auto) 0.5 K/mm3 (0.0-0.8) 09/28/21 05:38 Eos # (Auto) 0.0 K/mm3 (0.0-0.4) 09/28/21 05:38 Baso # (Auto) 0.0 K/mm3 (0.0-0.1) 09/28/21 05:38 Add Manual Diff Complete 09/03/21 06:05 Total Counted 100 09/03/21 06:05 Seg Neutrophils % 82.5 % (40.0-70.0) H 09/28/21 05:38 Seg Neuts % (Manual) 94.0 % (40.0-70.0) H 09/03/21 06:05 Lymphocytes % (Manual) 3.0 % (13.4-35.0) L 09/03/21 06:05 Monocytes % (Manual) 3.0 % (0.0-7.3) 09/03/21 06:05 Nucleated RBC % Not Reportable 09/03/21 06:05 Seg Neutrophils # 4.9 K/mm3 (1.8-7.7) 09/28/21 05:38 Seg Neutrophils # Man 7.3 K/mm3 (1.8-7.7) 09/03/21 06:05 Band Neutrophils # 0.0 K/mm3 09/03/21 06:05 Lymphocytes # (Manual) 0.2 K/mm3 (1.2-5.4) L 09/03/21 06:05 Abs React Lymphs (Man) 0.0 K/mm3 09/03/21 06:05 Monocytes # (Manual) 0.2 K/mm3 (0.0-0.8) 09/03/21 06:05 Eosinophils # (Manual) 0.0 K/mm3 (0.0-0.4) 09/03/21 06:05 Basophils # (Manual) 0.0 K/mm3 (0.0-0.1) 09/03/21 06:05 Metamyelocytes # 0.0 K/mm3 09/03/21 06:05 Myelocytes # 0.0 K/mm3 09/03/21 06:05 Promyelocytes # 0.0 K/mm3 09/03/21 06:05 Blast Cells # 0.0 K/mm3 09/03/21 06:05 WBC Morphology Not Reportable 09/03/21 06:05 Hypersegmented Neuts Not Reportable 09/03/21 06:05 Hyposegmented Neuts Not Reportable 09/03/21 06:05 Hypogranular Neuts Not Reportable 09/03/21 06:05 Smudge Cells Not Reportable 09/03/21 06:05 Toxic Granulation Not Reportable 09/03/21 06:05 Toxic Vacuolation Not Reportable 09/03/21 06:05 Dohle Bodies Not Reportable 09/03/21 06:05 Pelger-Huet Anomaly Not Reportable 09/03/21 06:05 Janelle Rods Not Reportable 09/03/21 06:05 Platelet Estimate Consistent w auto 09/03/21 06:05 Clumped Platelets Not Reportable 09/03/21 06:05 Plt Clumps, EDTA Not Reportable 09/03/21 06:05 Large Platelets Not Reportable 09/03/21 06:05 Giant Platelets Not Reportable 09/03/21 06:05 Platelet Satelliting Not Reportable 09/03/21 06:05 Plt Morphology Comment Not Reportable 09/03/21 06:05 RBC Morphology Normal 09/03/21 06:05 Dimorphic RBCs Not Reportable 09/03/21 06:05 Polychromasia Not Reportable 09/03/21 06:05 Hypochromasia Not Reportable 09/03/21 06:05 Poikilocytosis 1+ 09/03/21 06:05 Anisocytosis Not Reportable 09/03/21 06:05 Microcytosis Not Reportable 09/03/21 06:05 Macrocytosis Not Reportable 09/03/21 06:05 Spherocytes Not Reportable 09/03/21 06:05 Pappenheimer Bodies Not Reportable 09/03/21 06:05 Sickle Cells Not Reportable 09/03/21 06:05 Target Cells Not Reportable 09/03/21 06:05 Tear Drop Cells Not Reportable 09/03/21 06:05 Ovalocytes Not Reportable 09/03/21 06:05 Stomatocytes 3+ 09/03/21 06:05 Helmet Cells Not Reportable 09/03/21 06:05 [place] Bodies Not Reportable 09/03/21 06:05 [place] Rings Not Reportable 09/03/21 06:05 [place] Cells Not Reportable 09/03/21 06:05 Bite Cells Not Reportable 09/03/21 06:05 Crenated Cell Not Reportable 09/03/21 06:05 Elliptocytes Not Reportable 09/03/21 06:05 Acanthocytes (Spur) Not Reportable 09/03/21 06:05 Rouleaux Not Reportable 09/03/21 06:05 Hemoglobin C Crystals Not Reportable 09/03/21 06:05 Schistocytes Not Reportable 09/03/21 06:05 Malaria parasites Not Reportable 09/03/21 06:05 Justin Bodies Not Reportable 09/03/21 06:05 Hem Pathologist Commnt No 09/03/21 06:05 D-Dimer 710.59 ng/mlDDU (0-234) H 08/31/21 19:32 ABG pH 7.240 pH Units (7.350-7.450) L 09/01/21 23:56 ABG pCO2 111.3 mm Hg 09/01/21 23:56 ABG pO2 198.0 mm Hg (80.0-90.0) H 09/01/21 23:56 ABG HCO3 46.6 mmol/L (20.0-26.0) H 09/01/21 23:56 ABG O2 Saturation 99.0 % (95.0-99.0) 09/01/21 23:56 ABG O2 Content 16.8 (0.0-44) 09/01/21 23:56 ABG Base Excess 14.8 mmol/L (-2.0-3.0) H 09/01/21 23:56 ABG Hemoglobin 12.0 gm/dl (12.0-16.0) 09/01/21 23:56 ABG Carboxyhemoglobin 1.6 % (0.0-5.0) 09/01/21 23:56 ABG Methemoglobin 0.6 % (0.0-1.5) 09/01/21 23:56 Oxyhemoglobin 96.8 % (95.0-99.0) 09/01/21 23:56 FiO2 60 % 09/01/21 23:56 Sodium 134 mmol/L (137-145) L 09/28/21 05:38 Potassium 4.4 mmol/L (3.6-5.0) 09/28/21 05:38 Chloride 87.4 mmol/L (98-107) L 09/28/21 05:38 Carbon Dioxide 39 mmol/L (22-30) H 09/28/21 05:38 Anion Gap 12 mmol/L 09/28/21 05:38 BUN 21 mg/dL (7-17) H 09/28/21 05:38 Creatinine < 0.2 mg/dL (0.6-1.2) L 09/28/21 05:38 Estimated GFR > 60 ml/min 09/28/21 05:38 BUN/Creatinine Ratio 105 % 09/28/21 05:38 Glucose 154 mg/dL (65-100) H 09/28/21 05:38 POC Glucose 228 mg/dL (70-105) H 09/28/21 15:41 Calcium 9.6 mg/dL (8.4-10.2) 09/28/21 05:38 Magnesium 2.10 mg/dL (1.7-2.3) 09/08/21 04:31 Total Bilirubin 0.30 mg/dL (0.1-1.2) 09/28/21 05:38 AST 21 units/L (5-40) 09/28/21 05:38 ALT 63 units/L (7-56) H 09/28/21 05:38 Alkaline Phosphatase 90 units/L (35-129) 09/28/21 05:38 NT-Pro-B Natriuret Pep 524.1 pg/mL (0-450) H 08/31/21 19:32 Total Protein 6.0 g/dL (6.3-8.2) L 09/28/21 05:38 Albumin 3.6 g/dL (3.9-5) L 09/28/21 05:38 Albumin/Globulin Ratio 1.5 % 09/28/21 05:38 HCG, Qual Negative (Negative) 08/31/21 19:32 Urine Color Yellow (Yellow) 09/10/21 07:00 Urine Turbidity Cloudy (Clear) 09/10/21 07:00 Urine pH 7.0 (5.0-7.0) 09/10/21 07:00 Ur Specific [place] 1.022 (1.003-1.030) 09/10/21 07:00 Urine Protein <15 mg/dl mg/dL (Negative) 09/10/21 07:00 Urine Glucose (UA) >=500 mg/dL (Negative) 09/10/21 07:00 Urine Ketones Neg mg/dL (Negative) 09/10/21 07:00 Urine Blood Sm (Negative) 09/10/21 07:00 Urine Nitrite Neg (Negative) 09/10/21 07:00 Urine Bilirubin Neg (Negative) 09/10/21 07:00 Urine Urobilinogen < 2.0 mg/dL (<2.0) 09/10/21 07:00 Ur Leukocyte Esterase Mod (Negative) 09/10/21 07:00 Urine WBC (Auto) 24.0 /HPF (0.0-6.0) H 09/10/21 07:00 Urine RBC (Auto) 17.0 /HPF (0.0-6.0) 09/10/21 07:00 U Epithel Cells (Auto) 3.0 /HPF (0-13.0) 09/10/21 07:00 Urine Bacteria (Auto) 2+ /HPF (Negative) 09/10/21 07:00 Calcium Oxalate Crystal Few 09/10/21 07:00 Urine Mucus 1+ /HPF 09/10/21 07:00 Ur Yeast w Hyphae Few /HPF 09/10/21 07:00 Urine Yeast (Budding) Few /HPF 09/10/21 07:00 Amos/IV: Voiding Method External Female Catheter Active Medications - Current Medications Current Medications: Generic Name Dose Route Start Last Admin Trade Name Freq PRN Reason Stop Dose Admin Acetaminophen 650 mg 09/01/21 01:25 09/27/21 22:22 Acetaminophen 325 Mg Tab PO 650 mg Q4H PRN Administration Pain MILD(1-3)/Fever >100.5/[place] Albuterol 2.5 mg 09/01/21 01:25 09/14/21 14:56 Albuterol 2.5 Mg/3 Ml Nebu IH 2.5 mg Q3HRT PRN Administration Shortness Of Breath Alprazolam 1 mg 09/01/21 01:38 09/28/21 09:56 Alprazolam 1 Mg Tab PO 1 mg BID PRN Administration Agitation Clonidine HCl 0.2 mg 09/21/21 16:00 09/28/21 18:01 Clonidine Tts 0.2 Mg/24 Hr Patch TD 0.2 mg Sa TUTU Administration Dextrose 50 ml 09/01/21 01:25 Dextrose 50% In Water (25gm) 50 Ml Syringe IV Q30MIN PRN Hypoglycemia Protocol Famotidine 20 mg 09/01/21 10:00 09/28/21 09:56 Famotidine 20 Mg Tab PO 20 mg BID TUTU Administration Heparin Sodium (Porcine) 5,000 unit 09/01/21 06:00 09/28/21 13:35 Heparin 5,000 Unit/1 Ml Vial SUB-Q 5,000 unit Q8HR TUTU Administration Hydrocortisone Acetate 1 applic 09/21/21 15:00 Hydrocortisone 1% Cream 28.4gm TP Q8H PRN Skin Irritation Insulin Human Lispro 0 unit 09/01/21 07:30 09/28/21 18:01 Insulin Lispro 100 Unit/Ml SUB-Q 3 unit ACHS TUTU Administration Protocol Ondansetron HCl 4 mg 09/01/21 01:25 09/05/21 15:12 Ondansetron 4 Mg/2 Ml Inj IV 4 mg Q8H PRN Administration Nausea And Vomiting Prednisone 40 mg 09/27/21 11:00 09/28/21 09:56 Prednisone 20 Mg Tab PO 40 mg QDAY TUTU Administration Sodium Chloride 10 ml 09/01/21 10:00 09/28/21 09:56 Sodium Chloride 0.9% 10 Ml Flush Syringe IV 10 ml BID TUTU Administration Sodium Chloride 10 ml 09/01/21 01:25 09/26/21 05:41 Sodium Chloride 0.9% 10 Ml Flush Syringe IV 10 ml PRN PRN Administration LINE FLUSH Nutrition/Malnutrition Assess - Dietary Evaluation Nutrition/Malnutrition Findings: Nutrition Notes Start: 09/01/21 12:25 Freq: Status: Active Protocol: Document 09/16/21 15:34 SAQIB (Rec: 09/16/21 15:38 SAQIB [id number]) Nutrition Notes Initial or Follow up Brief Note Current Diet Consistent Carbohydrates Diet (since B 09/06). Height 5 ft 2 in Weight 54 kg [place] Body Weight (kg) 50.00 BMI 21.7 Weight change and time frame No body weight change reported . Weight Status Appropriate Subjective/Other Information RD consult on routine F/U on dietary tolerance. Pt's %PO intake of meals is Good (75-100%), according to ADL notes. Percent of energy/protein needs met: Prescribed Consistent Carbohydrates Diet provides for energy/protein needs (2, 061 Kcal/91 g) during LOS. Current % PO Good (75-100%) Nutrition Intervention Change Diet Order: Continue Consistent Carbohydrates Diet. Revisit per MD consult or patient Sign Off request: Additional Comments Continue monitoring food tolerance, %PO intake of meals and BM.
[2021-09-28] MEDS: ACETAMINOPHEN 325 MG TAB PO PRN (21:34)
[2021-09-29] MEDS: INSULIN LISPRO 100 UNIT/ML SUB-Q SCH ×3 (11:34→23:35)
[2021-09-29] MEDS: FAMOTIDINE 20 MG TAB PO SCH ×2 (11:35→22:41)
[2021-09-29] MEDS: predniSONE 20 MG TAB PO SCH (11:35)
[2021-09-29] MEDS: HEPARIN 5,000 UNIT/1 ML VIAL SUB-Q SCH ×3 (11:35→22:43)
[2021-09-29] MEDS: ALPRAZolam 1 MG TAB PO PRN ×2 (11:35→22:42)
--- NOTE | 2021-09-29 14:15 | Progress Note ---
Assessment and Plan - Patient Problems (1) Acute hypercapnic respiratory failure Current Visit: Yes Status: Acute Plan to address problem: Supplemental oxygen, supportive care, pulmonary toilet. Patient medically optimized at this time. Discharge to home hospice care. (2) Debility Current Visit: Yes Status: Acute Plan to address problem: Supportive care, range of motion exercises as tolerated (3) Pulmonary fibrosis, postinflammatory Current Visit: Yes Status: Acute Plan to address problem: Supportive care, steroid therapy, continue medical management. (4) Coronavirus infection Current Visit: No Status: Acute Plan to address problem: Resolved, supportive care. (5) Advance care planning Current Visit: No Status: Acute Plan to address problem: Disease education conducted, care plan discussed, diagnosis discussed, prognosis discussed, patient is full code. Patient knowledges understanding and agreement with care plan, +30 minutes. History Interval history: 50 YO Female HD #29 with Sepsis, Acute on Chronic Respiratory Failure, Pulmonary Fibrosis S/P coronavirus infection. Patient has poor prognosis. Patient p ending discharge to home hospice care. No reported nursing events. Patient medically optimized at this time. Hospitalist Physical - Constitutional Vitals: Temp Pulse Resp BP Pulse Ox 97.8 F 90 16 102/68 94 09/29/21 11:51 09/29/21 11:51 09/29/21 11:51 09/29/21 11:51 09/29/21 11:51 General appearance: Present: mild distress, cachectic, other (On 8 L oxygen, alert and awake) - EENT Eyes: Present: PERRL ENT: hearing intact - Neck Neck: Present: supple - Respiratory Respiratory effort: labored Respiratory: bilateral: diminished - Cardiovascular Rhythm: regular Heart Sounds: Present: S1 & S2 - Extremities Extremities: no ischemia Peripheral Pulses: within normal limits - Abdominal General gastrointestinal: soft, non-tender, non-distended - Integumentary Integumentary: Present: dry - Psychiatric Psychiatric: cooperative - Neurologic Neurologic: CNII-XII intact Results - Labs CBC & Chem 7: 09/28/21 05:38 09/28/21 05:38 Labs: Laboratory Last Values WBC 5.9 K/mm3 (4.5-11.0) 09/28/21 05:38 RBC 4.46 M/mm3 (3.65-5.03) 09/28/21 05:38 Hgb 12.7 gm/dl (10.1-14.3) 09/28/21 05:38 Hct 40.5 % (30.3-42.9) 09/28/21 05:38 MCV 91 fl (79-97) 09/28/21 05:38 MCH 29 pg (28-32) 09/28/21 05:38 MCHC 32 % (30-34) 09/28/21 05:38 RDW 18.3 % (13.2-15.2) H 09/28/21 05:38 Plt Count 253 K/mm3 (140-440) 09/28/21 05:38 Lymph % (Auto) 9.3 % (13.4-35.0) L 09/28/21 05:38 [place] % (Auto) 7.7 % (0.0-7.3) H 09/28/21 05:38 Eos % (Auto) 0.2 % (0.0-4.3) 09/28/21 05:38 Baso % (Auto) 0.3 % (0.0-1.8) 09/28/21 05:38 Lymph # (Auto) 0.6 K/mm3 (1.2-5.4) L 09/28/21 05:38 [place] # (Auto) 0.5 K/mm3 (0.0-0.8) 09/28/21 05:38 Eos # (Auto) 0.0 K/mm3 (0.0-0.4) 09/28/21 05:38 Baso # (Auto) 0.0 K/mm3 (0.0-0.1) 09/28/21 05:38 Add Manual Diff Complete 09/03/21 06:05 Total Counted 100 09/03/21 06:05 Seg Neutrophils % 82.5 % (40.0-70.0) H 09/28/21 05:38 Seg Neuts % (Manual) 94.0 % (40.0-70.0) H 09/03/21 06:05 Lymphocytes % (Manual) 3.0 % (13.4-35.0) L 09/03/21 06:05 Monocytes % (Manual) 3.0 % (0.0-7.3) 09/03/21 06:05 Nucleated RBC % Not Reportable 09/03/21 06:05 Seg Neutrophils # 4.9 K/mm3 (1.8-7.7) 09/28/21 05:38 Seg Neutrophils # Man 7.3 K/mm3 (1.8-7.7) 09/03/21 06:05 Band Neutrophils # 0.0 K/mm3 09/03/21 06:05 Lymphocytes # (Manual) 0.2 K/mm3 (1.2-5.4) L 09/03/21 06:05 Abs React Lymphs (Man) 0.0 K/mm3 09/03/21 06:05 Monocytes # (Manual) 0.2 K/mm3 (0.0-0.8) 09/03/21 06:05 Eosinophils # (Manual) 0.0 K/mm3 (0.0-0.4) 09/03/21 06:05 Basophils # (Manual) 0.0 K/mm3 (0.0-0.1) 09/03/21 06:05 Metamyelocytes # 0.0 K/mm3 09/03/21 06:05 Myelocytes # 0.0 K/mm3 09/03/21 06:05 Promyelocytes # 0.0 K/mm3 09/03/21 06:05 Blast Cells # 0.0 K/mm3 09/03/21 06:05 WBC Morphology Not Reportable 09/03/21 06:05 Hypersegmented Neuts Not Reportable 09/03/21 06:05 Hyposegmented Neuts Not Reportable 09/03/21 06:05 Hypogranular Neuts Not Reportable 09/03/21 06:05 Smudge Cells Not Reportable 09/03/21 06:05 Toxic Granulation Not Reportable 09/03/21 06:05 Toxic Vacuolation Not Reportable 09/03/21 06:05 Dohle Bodies Not Reportable 09/03/21 06:05 Pelger-Huet Anomaly Not Reportable 09/03/21 06:05 Janelle Rods Not Reportable 09/03/21 06:05 Platelet Estimate Consistent w auto 09/03/21 06:05 Clumped Platelets Not Reportable 09/03/21 06:05 Plt Clumps, EDTA Not Reportable 09/03/21 06:05 Large Platelets Not Reportable 09/03/21 06:05 Giant Platelets Not Reportable 09/03/21 06:05 Platelet Satelliting Not Reportable 09/03/21 06:05 Plt Morphology Comment Not Reportable 09/03/21 06:05 RBC Morphology Normal 09/03/21 06:05 Dimorphic RBCs Not Reportable 09/03/21 06:05 Polychromasia Not Reportable 09/03/21 06:05 Hypochromasia Not Reportable 09/03/21 06:05 Poikilocytosis 1+ 09/03/21 06:05 Anisocytosis Not Reportable 09/03/21 06:05 Microcytosis Not Reportable 09/03/21 06:05 Macrocytosis Not Reportable 09/03/21 06:05 Spherocytes Not Reportable 09/03/21 06:05 Pappenheimer Bodies Not Reportable 09/03/21 06:05 Sickle Cells Not Reportable 09/03/21 06:05 Target Cells Not Reportable 09/03/21 06:05 Tear Drop Cells Not Reportable 09/03/21 06:05 Ovalocytes Not Reportable 09/03/21 06:05 Stomatocytes 3+ 09/03/21 06:05 Helmet Cells Not Reportable 09/03/21 06:05 Ahuja-[place] Bodies Not Reportable 09/03/21 06:05 [place] Rings Not Reportable 09/03/21 06:05 [place] Cells Not Reportable 09/03/21 06:05 Bite Cells Not Reportable 09/03/21 06:05 Crenated Cell Not Reportable 09/03/21 06:05 Elliptocytes Not Reportable 09/03/21 06:05 Acanthocytes (Spur) Not Reportable 09/03/21 06:05 Rouleaux Not Reportable 09/03/21 06:05 Hemoglobin C Crystals Not Reportable 09/03/21 06:05 Schistocytes Not Reportable 09/03/21 06:05 Malaria parasites Not Reportable 09/03/21 06:05 Justin Bodies Not Reportable 09/03/21 06:05 Hem Pathologist Commnt No 09/03/21 06:05 D-Dimer 710.59 ng/mlDDU (0-234) H 08/31/21 19:32 ABG pH 7.240 pH Units (7.350-7.450) L 09/01/21 23:56 ABG pCO2 111.3 mm Hg 09/01/21 23:56 ABG pO2 198.0 mm Hg (80.0-90.0) H 09/01/21 23:56 ABG HCO3 46.6 mmol/L (20.0-26.0) H 09/01/21 23:56 ABG O2 Saturation 99.0 % (95.0-99.0) 09/01/21 23:56 ABG O2 Content 16.8 (0.0-44) 09/01/21 23:56 ABG Base Excess 14.8 mmol/L (-2.0-3.0) H 09/01/21 23:56 ABG Hemoglobin 12.0 gm/dl (12.0-16.0) 09/01/21 23:56 ABG Carboxyhemoglobin 1.6 % (0.0-5.0) 09/01/21 23:56 ABG Methemoglobin 0.6 % (0.0-1.5) 09/01/21 23:56 Oxyhemoglobin 96.8 % (95.0-99.0) 09/01/21 23:56 FiO2 60 % 09/01/21 23:56 Sodium 134 mmol/L (137-145) L 09/28/21 05:38 Potassium 4.4 mmol/L (3.6-5.0) 09/28/21 05:38 Chloride 87.4 mmol/L (98-107) L 09/28/21 05:38 Carbon Dioxide 39 mmol/L (22-30) H 09/28/21 05:38 Anion Gap 12 mmol/L 09/28/21 05:38 BUN 21 mg/dL (7-17) H 09/28/21 05:38 Creatinine < 0.2 mg/dL (0.6-1.2) L 09/28/21 05:38 Estimated GFR > 60 ml/min 09/28/21 05:38 BUN/Creatinine Ratio 105 % 09/28/21 05:38 Glucose 154 mg/dL (65-100) H 09/28/21 05:38 POC Glucose 217 mg/dL (70-105) H 09/29/21 11:32 Calcium 9.6 mg/dL (8.4-10.2) 09/28/21 05:38 Magnesium 2.10 mg/dL (1.7-2.3) 09/08/21 04:31 Total Bilirubin 0.30 mg/dL (0.1-1.2) 09/28/21 05:38 AST 21 units/L (5-40) 09/28/21 05:38 ALT 63 units/L (7-56) H 09/28/21 05:38 Alkaline Phosphatase 90 units/L (35-129) 09/28/21 05:38 NT-Pro-B Natriuret Pep 524.1 pg/mL (0-450) H 08/31/21 19:32 Total Protein 6.0 g/dL (6.3-8.2) L 09/28/21 05:38 Albumin 3.6 g/dL (3.9-5) L 09/28/21 05:38 Albumin/Globulin Ratio 1.5 % 09/28/21 05:38 HCG, Qual Negative (Negative) 08/31/21 19:32 Urine Color Yellow (Yellow) 09/10/21 07:00 Urine Turbidity Cloudy (Clear) 09/10/21 07:00 Urine pH 7.0 (5.0-7.0) 09/10/21 07:00 Ur Specific [place] 1.022 (1.003-1.030) 09/10/21 07:00 Urine Protein <15 mg/dl mg/dL (Negative) 09/10/21 07:00 Urine Glucose (UA) >=500 mg/dL (Negative) 09/10/21 07:00 Urine Ketones Neg mg/dL (Negative) 09/10/21 07:00 Urine Blood Sm (Negative) 09/10/21 07:00 Urine Nitrite Neg (Negative) 09/10/21 07:00 Urine Bilirubin Neg (Negative) 09/10/21 07:00 Urine Urobilinogen < 2.0 mg/dL (<2.0) 09/10/21 07:00 Ur Leukocyte Esterase Mod (Negative) 09/10/21 07:00 Urine WBC (Auto) 24.0 /HPF (0.0-6.0) H 09/10/21 07:00 Urine RBC (Auto) 17.0 /HPF (0.0-6.0) 09/10/21 07:00 U Epithel Cells (Auto) 3.0 /HPF (0-13.0) 09/10/21 07:00 Urine Bacteria (Auto) 2+ /HPF (Negative) 09/10/21 07:00 Calcium Oxalate Crystal Few 09/10/21 07:00 Urine Mucus 1+ /HPF 09/10/21 07:00 Ur Yeast w Hyphae Few /HPF 09/10/21 07:00 Urine Yeast (Budding) Few /HPF 09/10/21 07:00 Amos/IV: Voiding Method External Female Catheter Active Medications - Current Medications Current Medications: Generic Name Dose Route Start Last Admin Trade Name Freq PRN Reason Stop Dose Admin Acetaminophen 650 mg 09/01/21 01:25 09/28/21 21:34 Acetaminophen 325 Mg Tab PO 650 mg Q4H PRN Administration Pain MILD(1-3)/Fever >100.5/[place] Albuterol 2.5 mg 09/01/21 01:25 09/14/21 14:56 Albuterol 2.5 Mg/3 Ml Nebu IH 2.5 mg Q3HRT PRN Administration Shortness Of Breath Alprazolam 1 mg 09/01/21 01:38 09/29/21 11:35 Alprazolam 1 Mg Tab PO 1 mg BID PRN Administration Agitation Clonidine HCl 0.2 mg 09/21/21 16:00 09/28/21 18:01 Clonidine Tts 0.2 Mg/24 Hr Patch TD 0.2 mg Sa TUTU Administration Dextrose 50 ml 09/01/21 01:25 Dextrose 50% In Water (25gm) 50 Ml Syringe IV Q30MIN PRN Hypoglycemia Protocol Famotidine 20 mg 09/01/21 10:00 09/29/21 11:35 Famotidine 20 Mg Tab PO 20 mg BID TUTU Administration Heparin Sodium (Porcine) 5,000 unit 09/01/21 06:00 09/29/21 11:35 Heparin 5,000 Unit/1 Ml Vial SUB-Q 5,000 unit Q8HR TUTU Administration Hydrocortisone Acetate 1 applic 09/21/21 15:00 Hydrocortisone 1% Cream 28.4gm TP Q8H PRN Skin Irritation Insulin Human Lispro 0 unit 09/01/21 07:30 09/29/21 11:34 Insulin Lispro 100 Unit/Ml SUB-Q Not Given ACHS TUTU Protocol Ondansetron HCl 4 mg 09/01/21 01:25 09/05/21 15:12 Ondansetron 4 Mg/2 Ml Inj IV 4 mg Q8H PRN Administration Nausea And Vomiting Prednisone 40 mg 09/27/21 11:00 09/29/21 11:35 Prednisone 20 Mg Tab PO 40 mg QDAY TUTU Administration Sodium Chloride 10 ml 09/01/21 10:00 09/29/21 11:35 Sodium Chloride 0.9% 10 Ml Flush Syringe IV 10 ml BID TUTU Administration Sodium Chloride 10 ml 09/01/21 01:25 09/26/21 05:41 Sodium Chloride 0.9% 10 Ml Flush Syringe IV 10 ml PRN PRN Administration LINE FLUSH Nutrition/Malnutrition Assess - Dietary Evaluation Nutrition/Malnutrition Findings: Nutrition Notes Start: 09/01/21 12:25 Freq: Status: Active Protocol: Document 09/16/21 15:34 SAQIB (Rec: 09/16/21 15:38 SAQIB [id number]) Nutrition Notes Initial or Follow up Brief Note Current Diet Consistent Carbohydrates Diet (since B 09/06). Height 5 ft 2 in Weight 54 kg [place] Body Weight (kg) 50.00 BMI 21.7 Weight change and time frame No body weight change reported . Weight Status Appropriate Subjective/Other Information RD consult on routine F/U on dietary tolerance. Pt's %PO intake of meals is Good (75-100%), according to ADL notes. Percent of energy/protein needs met: Prescribed Consistent Carbohydrates Diet provides for energy/protein needs (2, 061 Kcal/91 g) during LOS. Current % PO Good (75-100%) Nutrition Intervention Change Diet Order: Continue Consistent Carbohydrates Diet. Revisit per MD consult or patient Sign Off request: Additional Comments Continue monitoring food tolerance, %PO intake of meals and BM.
[2021-09-29] MEDS: ACETAMINOPHEN 325 MG TAB PO PRN (22:42)
[2021-09-30] MEDS: INSULIN LISPRO 100 UNIT/ML SUB-Q SCH ×4 (08:34→22:00)
[2021-09-30] MEDS: predniSONE 20 MG TAB PO SCH (09:25)
[2021-09-30] MEDS: FAMOTIDINE 20 MG TAB PO SCH ×2 (09:25→22:00)
[2021-09-30] MEDS: HEPARIN 5,000 UNIT/1 ML VIAL SUB-Q SCH ×2 (09:25→13:17)
--- NOTE | 2021-09-30 09:36 | Discharge Summary ---
Providers - Providers Date of Admission: 09/01/21 01:25 Attending physician: HILARIA HAMILTON 09/01/21 01:25 Consult to Dietitian/Nutrition [CONS] Routine Physician Instructions: Reason For Exam: Reason for Consult: Diet education Consult to Physician [CONS] Routine Comment: Consulting Provider: JALIL LYNCH Physician Instructions: Reason For Exam: respiratory failure 09/10/21 09:09 Physical Therapy Evaluation and Treat [CONS] Stat Comment: Reason For Exam: eval and treat 09/11/21 13:21 psychiatry consult [Consult to Mental Health] [CONS] Routine Reason For Exam: Generalized anxiety and panic episodes Primary care physician: PLANNING TECHNICIAN Hospitalization Condition: Stable Disposition: 30 STILL A PATIENT - Discharge Diagnoses (1) Acute hypercapnic respiratory failure Status: Acute (2) Debility Status: Acute (3) Pulmonary fibrosis, postinflammatory Status: Acute (4) Coronavirus infection Status: Acute (5) Advance care planning Status: Acute Exam - Constitutional Vitals: Temp Pulse Resp BP Pulse Ox 98.0 F 88 16 113/70 100 09/30/21 07:38 09/30/21 07:38 09/30/21 07:38 09/30/21 07:38 09/30/21 07:38 Plan Follow up with: PRIMARY CARE, [Primary Care Provider] - 3-5 Days
[2021-09-30] MEDS: ACETAMINOPHEN 325 MG TAB PO PRN (13:20)
[2021-09-30] MEDS ORDERED: ENOXAPARIN 60 MG/0.6 ML INJ SUB-Q ONE (15:30)
[2021-09-30 16:57] LABS: ABG Base Excess 10.3 mmol/L (-2.0-3.0); ABG HCO3 42.8 mmol/L (20.0-26.0); ABG Methemoglobin 0.6 % (0.0-1.5); ABG Oxygen Saturation 90.1 % (95.0-99.0); ABG PCO2 109.9 mm Hg; ABG PH 7.208 pH Units (7.350-7.450); ABG PO2 67.1 mm Hg (80.0-90.0)
[2021-09-30] MEDS ORDERED: LORazepam 2 MG/ML VIAL IV NR (16:57)
[2021-09-30] MEDS ORDERED: ENOXAPARIN 60 MG/0.6 ML INJ SUB-Q NR (17:15)
[2021-09-30 18:33] LABS: Hematocrit 42.9 % (30.3-42.9); Hemoglobin 13.4 gm/dl (10.1-14.3); Mean Corpuscular HGB Conc 31 % (30-34); Mean Corpuscular Volume 93 fl (79-97); Platelet Count 237 K/mm3 (140-440); Red Blood Count 4.61 M/mm3 (3.65-5.03); Red Cell Distribution Width 18.9 % (13.2-15.2)
[2021-09-30 18:49] LABS: Alanine Aminotransferase 117 units/L (7-56); Albumin 3.7 g/dL (3.9-5); Blood Urea Nitrogen 19 mg/dL (7-17); Calcium 9.4 mg/dL (8.4-10.2); Hemolysis Index 11
[2021-09-30 18:54] LABS: BUN/Creatinine Ratio 95
[2021-09-30] MEDS ORDERED: ENOXAPARIN 100 MG/1 ML INJ SUB-Q SCH (22:00)
[2021-09-30 22:03] LABS: Basophils % (Manual) 0 % (0.0-1.8); Eosinophils % (Manual) 0 % (0.0-4.3); Total Cells Counted 100
[2021-09-30 22:11] LABS: Anisocytosis 1+; Platelet Estimate Consistent w Auto
[2021-09-30 22:12] LABS: Schistocytes Rare
[2021-10-01] MEDS: ENOXAPARIN 60 MG/0.6 ML INJ SUB-Q SCH ×2 (06:20→17:59)
[2021-10-01] MEDS: INSULIN LISPRO 100 UNIT/ML SUB-Q SCH ×4 (08:20→22:25)
[2021-10-01] MEDS: predniSONE 20 MG TAB PO SCH (09:58)
[2021-10-01] MEDS: FAMOTIDINE 20 MG TAB PO SCH ×2 (10:01→22:28)
--- NOTE | 2021-10-01 12:24 | Progress Note ---
Assessment and Plan - Patient Problems (1) Acute hypercapnic respiratory failure Current Visit: Yes Status: Acute Plan to address problem: Supplemental oxygen, supportive care, pulmonary toilet. Patient medically optimized at this time. Patient placed on noninvasive positive pressure ventilation. Blood gas ordered. Continue supportive care. (2) Debility Current Visit: Yes Status: Acute Plan to address problem: Supportive care, range of motion exercises as tolerated (3) Pulmonary fibrosis, postinflammatory Current Visit: Yes Status: Acute Plan to address problem: Supportive care, steroid therapy, continue medical management. (4) Coronavirus infection Current Visit: No Status: Acute Plan to address problem: Resolved, supportive care. (5) Advance care planning Current Visit: No Status: Acute Plan to address problem: Disease education conducted, care plan discussed, diagnosis discussed, prognosis discussed, patient is full code. Patient knowledges understanding and agreement with care plan, +30 minutes. History Interval history: 50 YO Female HD #30 with Sepsis, Acute on Chronic Respiratory Failure, Severe Pu lmonary Fibrosis S/P coronavirus infection. Patient has poor prognosis. Patient pending discharge to home. At time of discharge the patient was being transferred from bed to chair and subsequently became agitated and tachypneic. Patient subsequently became hypoxic and hypercapnic due to her respiratory rate combined with her pulmonary fibrosis. Patient placed on nonrebreather mask and underwent ABG which revealed acute hypoxemic respiratory failure. CTA chest ordered to assess for pulmonary embolism. Patient symptoms resolved after treatment with noninvasive positive pressure ventilation. Hospitalist Physical - Constitutional Vitals: Temp Pulse Resp BP Pulse Ox 97.9 F 102 H 32 H 94/51 100 10/01/21 12:15 10/01/21 12:17 10/01/21 12:17 10/01/21 12:15 10/01/21 12:17 General appearance: Present: mild distress, cachectic, other (On 8 L oxygen, alert and awake) - EENT Eyes: Present: PERRL ENT: hearing intact - Neck Neck: Present: supple - Respiratory Respiratory effort: labored Respiratory: bilateral: diminished - Cardiovascular Rhythm: regular Heart Sounds: Present: S1 & S2 - Extremities Extremities: no ischemia Peripheral Pulses: within normal limits - Abdominal General gastrointestinal: soft, non-tender, non-distended - Integumentary Integumentary: Present: clear, dry - Psychiatric Psychiatric: cooperative - Neurologic Neurologic: CNII-XII intact Results - Labs CBC & Chem 7: 09/30/21 18:27 09/30/21 18:27 Labs: Laboratory Last Values WBC 11.5 K/mm3 (4.5-11.0) H 09/30/21 18:27 RBC 4.61 M/mm3 (3.65-5.03) 09/30/21 18:27 Hgb 13.4 gm/dl (10.1-14.3) 09/30/21 18:27 Hct 42.9 % (30.3-42.9) 09/30/21 18:27 MCV 93 fl (79-97) 09/30/21 18: MCH 29 pg (28-32) 09/30/21 18: MCHC 31 % (30-34) 09/30/21 18: RDW 18.9 % (13.2-15.2) H 09/30/21 18:27 Plt Count 237 K/mm3 (140-440) 09/30/21 18:27 Lymph % (Auto) 9.3 % (13.4-35.0) L 09/28/21 05:38 [place] % (Auto) 7.7 % (0.0-7.3) H 09/28/21 05:38 Eos % (Auto) 0.2 % (0.0-4.3) 09/28/21 05:38 Baso % (Auto) 0.3 % (0.0-1.8) 09/28/21 05:38 Lymph # (Auto) 0.6 K/mm3 (1.2-5.4) L 09/28/21 05:38 [place] # (Auto) 0.5 K/mm3 (0.0-0.8) 09/28/21 05:38 Eos # (Auto) 0.0 K/mm3 (0.0-0.4) 09/28/21 05:38 Baso # (Auto) 0.0 K/mm3 (0.0-0.1) 09/28/21 05:38 Add Manual Diff Complete 09/30/21 18: Total Counted 100 09/30/21 18:27 Seg Neutrophils % Super[employer] 09/30/21 18:27 Seg Neuts % (Manual) 99.0 % (40.0-70.0) H 09/30/21 18:27 Band Neutrophils % 0 % 09/30/21 18:27 Lymphocytes % (Manual) 0 % (13.4-35.0) L 09/30/21 18:27 Reactive Lymphs % (Man) 0 % 09/30/21 18:27 Monocytes % (Manual) 1.0 % (0.0-7.3) 09/30/21 18:27 Eosinophils % (Manual) 0 % (0.0-4.3) 09/30/21 18:27 Basophils % (Manual) 0 % (0.0-1.8) 09/30/21 18:27 Metamyelocytes % 0 % 09/30/21 18:27 Myelocytes % 0 % 09/30/21 18:27 Promyelocytes % 0 % 09/30/21 18:27 Blast Cells % 0 % 09/30/21 18:27 Nucleated RBC % Not Reportable 09/30/21 18: Seg Neutrophils # 4.9 K/mm3 (1.8-7.7) 09/28/21 05:38 Seg Neutrophils # Man 11.4 K/mm3 (1.8-7.7) H 09/30/21 18:27 Band Neutrophils # 0.0 K/mm3 09/30/21 18:27 Lymphocytes # (Manual) 0.0 K/mm3 (1.2-5.4) L 09/30/21 18:27 Abs React Lymphs (Man) 0.0 K/mm3 09/30/21 18:27 Monocytes # (Manual) 0.1 K/mm3 (0.0-0.8) 09/30/21 18:27 Eosinophils # (Manual) 0.0 K/mm3 (0.0-0.4) 09/30/21 18:27 Basophils # (Manual) 0.0 K/mm3 (0.0-0.1) 09/30/21 18:27 Metamyelocytes # 0.0 K/mm3 09/30/21 18:27 Myelocytes # 0.0 K/mm3 09/30/21 18:27 Promyelocytes # 0.0 K/mm3 09/30/21 18:27 Blast Cells # 0.0 K/mm3 09/30/21 18:27 WBC Morphology Not Reportable 09/30/21 18: Hypersegmented Neuts Not Reportable 09/30/21 18:27 Hyposegmented Neuts Not Reportable 09/30/21 18:27 Hypogranular Neuts Not Reportable 09/30/21 18:27 Smudge Cells Not Reportable 09/30/21 18:27 Toxic Granulation Not Reportable 09/30/21 18:27 Toxic Vacuolation Not Reportable 09/30/21 18:27 Dohle Bodies Not Reportable 09/30/21 18:27 Pelger-Huet Anomaly Not Reportable 09/30/21 18:27 Janelle Rods Not Reportable 09/30/21 18:27 Platelet Estimate Consistent w auto 09/30/21 18:27 Clumped Platelets Not Reportable 09/30/21 18:27 Plt Clumps, EDTA Not Reportable 09/30/21 18:27 Large Platelets Not Reportable 09/30/21 18:27 Giant Platelets Not Reportable 09/30/21 18:27 Platelet Satelliting Not Reportable 09/30/21 18:27 Plt Morphology Comment Not Reportable 09/30/21 18:27 RBC Morphology Not Reportable 09/30/21 18:27 Dimorphic RBCs Not Reportable 09/30/21 18:27 Polychromasia Not Reportable 09/30/21 18:27 Hypochromasia Not Reportable 09/30/21 18:27 Poikilocytosis Not Reportable 09/30/21 18:27 Anisocytosis 1+ 09/30/21 18:27 Microcytosis Few 09/30/21 18:27 Macrocytosis Not Reportable 09/30/21 18:27 Spherocytes Not Reportable 09/30/21 18:27 Pappenheimer Bodies Not Reportable 09/30/21 18:27 Sickle Cells Not Reportable 09/30/21 18:27 Target Cells Not Reportable 09/30/21 18:27 Tear Drop Cells Not Reportable 09/30/21 18:27 Ovalocytes Not Reportable 09/30/21 18:27 Stomatocytes 3+ 09/03/21 06:05 Helmet Cells Not Reportable 09/30/21 18:27 [place] Bodies Not Reportable 09/30/21 18:27 Elton Rings Not Reportable 09/30/21 18:27 Crow Cells Not Reportable 09/30/21 18:27 Bite Cells Not Reportable 09/30/21 18:27 Crenated Cell Not Reportable 09/30/21 18:27 Elliptocytes Not Reportable 09/30/21 18:27 Acanthocytes (Spur) Not Reportable 09/30/21 18:27 Rouleaux Not Reportable 09/30/21 18:27 Hemoglobin C Crystals Not Reportable 09/30/21 18:27 Schistocytes Rare 09/30/21 18:27 Malaria parasites Not Reportable 09/30/21 18:27 Justin Bodies Not Reportable 09/30/21 18:27 Hem Pathologist Commnt No 09/30/21 18:27 D-Dimer 710.59 ng/mlDDU (0-234) H 08/31/21 19:32 ABG pH 7.208 pH Units (7.350-7.450) L 09/30/21 16:45 ABG pCO2 109.9 mm Hg 09/30/21 16:45 ABG pO2 67.1 mm Hg (80.0-90.0) L 09/30/21 16:45 ABG HCO3 42.8 mmol/L (20.0-26.0) H 09/30/21 16:45 ABG O2 Saturation 90.1 % (95.0-99.0) L 09/30/21 16:45 ABG O2 Content 17.0 (0.0-44) 09/30/21 16:45 ABG Base Excess 10.3 mmol/L (-2.0-3.0) H 09/30/21 16:45 ABG Hemoglobin 13.7 gm/dl (12.0-16.0) 09/30/21 16:45 ABG Carboxyhemoglobin 1.6 % (0.0-5.0) 09/30/21 16:45 ABG Methemoglobin 0.6 % (0.0-1.5) 09/30/21 16:45 Oxyhemoglobin 88.1 % (95.0-99.0) L 09/30/21 16:45 FiO2 100 % 09/30/21 16:45 Sodium 137 mmol/L (137-145) 09/30/21 18:27 Potassium 4.9 mmol/L (3.6-5.0) 09/30/21 18:27 Chloride 89.0 mmol/L (98-107) L 09/30/21 18:27 Carbon Dioxide 36 mmol/L (22-30) H 09/30/21 18:27 Anion Gap 17 mmol/L 09/30/21 18:27 BUN 19 mg/dL (7-17) H 09/30/21 18:27 Creatinine < 0.2 mg/dL (0.6-1.2) L 09/30/21 18:27 Estimated GFR > 60 ml/min 09/30/21 18:27 BUN/Creatinine Ratio 95 % 09/30/21 18:27 Glucose 430 mg/dL (65-100) H 09/30/21 18:27 POC Glucose 235 mg/dL (70-105) H 10/01/21 11:08 Calcium 9.4 mg/dL (8.4-10.2) 09/30/21 18: Magnesium 2.10 mg/dL (1.7-2.3) 09/08/21 04:31 Total Bilirubin 0.40 mg/dL (0.1-1.2) 09/30/21 18:27 AST 39 units/L (5-40) 09/30/21 18:27 ALT 117 units/L (7-56) H 09/30/21 18:27 Alkaline Phosphatase 135 units/L (35-129) H 09/30/21 18:27 NT-Pro-B Natriuret Pep 524.1 pg/mL (0-450) H 08/31/21 19:32 Total Protein 6.9 g/dL (6.3-8.2) 09/30/21 18:27 Albumin 3.7 g/dL (3.9-5) L 09/30/21 18: Albumin/Globulin Ratio 1.2 % 09/30/21 18:27 HCG, Qual Negative (Negative) 08/31/21 19:32 Urine Color Yellow (Yellow) 09/10/21 07:00 Urine Turbidity Cloudy (Clear) 09/10/21 07:00 Urine pH 7.0 (5.0-7.0) 09/10/21 07:00 Ur Specific [place] 1.022 (1.003-1.030) 09/10/21 07:00 Urine Protein <15 mg/dl mg/dL (Negative) 09/10/21 07:00 Urine Glucose (UA) >=500 mg/dL (Negative) 09/10/21 07:00 Urine Ketones Neg mg/dL (Negative) 09/10/21 07:00 Urine Blood Sm (Negative) 09/10/21 07:00 Urine Nitrite Neg (Negative) 09/10/21 07:00 Urine Bilirubin Neg (Negative) 09/10/21 07:00 Urine Urobilinogen < 2.0 mg/dL (<2.0) 09/10/21 07:00 Ur Leukocyte Esterase Mod (Negative) 09/10/21 07:00 Urine WBC (Auto) 24.0 /HPF (0.0-6.0) H 09/10/21 07:00 Urine RBC (Auto) 17.0 /HPF (0.0-6.0) 09/10/21 07:00 U Epithel Cells (Auto) 3.0 /HPF (0-13.0) 09/10/21 07:00 Urine Bacteria (Auto) 2+ /HPF (Negative) 09/10/21 07:00 Calcium Oxalate Crystal Few 09/10/21 07:00 Urine Mucus 1+ /HPF 09/10/21 07:00 Ur Yeast w Hyphae Few /HPF 09/10/21 07:00 Urine Yeast (Budding) Few /HPF 09/10/21 07:00 Amos/IV: Voiding Method External Female Catheter Active Medications - Current Medications Current Medications: Generic Name Dose Route Start Last Admin Trade Name Freq PRN Reason Stop Dose Admin Acetaminophen 650 mg 09/01/21 01:25 09/30/21 13:20 Acetaminophen 325 Mg Tab PO 650 mg Q4H PRN Administration Pain MILD(1-3)/Fever >100.5/[place] Albuterol 2.5 mg 09/01/21 01:25 09/14/21 14:56 Albuterol 2.5 Mg/3 Ml Nebu IH 2.5 mg Q3HRT PRN Administration Shortness Of Breath Alprazolam 1 mg 09/01/21 01:38 09/29/21 22:42 Alprazolam 1 Mg Tab PO 1 mg BID PRN Administration Agitation Clonidine HCl 0.2 mg 09/21/21 16:00 09/28/21 18:01 Clonidine Tts 0.2 Mg/24 Hr Patch TD 0.2 mg Sa TUTU Administration Dextrose 50 ml 09/01/21 01:25 Dextrose 50% In Water (25gm) 50 Ml Syringe IV Q30MIN PRN Hypoglycemia Protocol Enoxaparin Sodium 50 mg 10/01/21 06:00 10/01/21 06:20 Enoxaparin 60 Mg/0.6 Ml Inj 1 mg/kg (50 mg) 50 mg SUB-Q Administration Q12H [facility] Protocol Famotidine 20 mg 09/01/21 10:00 10/01/21 10:01 Famotidine 20 Mg Tab PO Not Given BID [facility] Hydrocortisone Acetate 1 applic 09/21/21 15:00 Hydrocortisone 1% Cream 28.4gm TP Q8H PRN Skin Irritation Insulin Human Lispro 0 unit 09/01/21 07:30 10/01/21 12:20 Insulin Lispro 100 Unit/Ml SUB-Q Not Given ACHS [facility] Protocol Ondansetron HCl 4 mg 09/01/21 01:25 09/05/21 15:12 Ondansetron 4 Mg/2 Ml Inj IV 4 mg Q8H PRN Administration Nausea And Vomiting Prednisone 40 mg 09/27/21 11:00 10/01/21 09:58 Prednisone 20 Mg Tab PO Not Given QDAY TUTU Sodium Chloride 10 ml 09/01/21 10:00 10/01/21 10:01 Sodium Chloride 0.9% 10 Ml Flush Syringe IV 10 ml BID TUTU Administration Sodium Chloride 10 ml 09/01/21 01:25 09/26/21 05:41 Sodium Chloride 0.9% 10 Ml Flush Syringe IV 10 ml PRN PRN Administration LINE FLUSH Nutrition/Malnutrition Assess - Dietary Evaluation Nutrition/Malnutrition Findings: Nutrition Notes Start: 09/01/21 12:25 Freq: Status: Active Protocol: Document 09/16/21 15:34 SAQIB (Rec: 09/16/21 15:38 SAQIB [id number]) Nutrition Notes Initial or Follow up Brief Note Current Diet Consistent Carbohydrates Diet (since B 09/06). Height 5 ft 2 in Weight 54 kg [place] Body Weight (kg) 50.00 BMI 21.7 Weight change and time frame No body weight change reported . Weight Status Appropriate Subjective/Other Information RD consult on routine F/U on dietary tolerance. Pt's %PO intake of meals is Good (75-100%), according to ADL notes. Percent of energy/protein needs met: Prescribed Consistent Carbohydrates Diet provides for energy/protein needs (2, 061 Kcal/91 g) during LOS. Current % PO Good (75-100%) Nutrition Intervention Change Diet Order: Continue Consistent Carbohydrates Diet. Revisit per MD consult or patient Sign Off request: Additional Comments Continue monitoring food tolerance, %PO intake of meals and BM.
--- NOTE | 2021-10-01 12:57 | Cat Scan Report ---
CTA CHEST WITH IV CONTRAST INDICATION: Dyspnea CONTRAST: 100 cc Omnipaque 350 IV COMPARISON: 09/01/2021, 06/06/2021 Three-plane MIP reconstructions were produced. All CT scans at this location are performed using CT d ose reduction for ALARA by means of automated exposure control. FINDINGS: No significant axillary or chest wall abnormalities are seen. Visualized portions of the up per abdomen show cholecystectomy changes, fatty infiltration of the liver, a stable left adrenal nodu le. No pleural effusions are seen. No mediastinal or hilar masses are noted. No obvious endobronchial lesions are seen. No pneumothorax or pneumomediastinum are noted. On previous examination in August there was prominent bilateral patchy but widely distributed inter stitial and alveolar infiltrate. Mostly interstitial type prominent markings are again seen bilateral ly in a similar distribution though moderately improved in many areas. Compared with study in er markings are noticeably more prominent. Mild bullous changes are seen. Bronchiectasis is noted. No definite new infiltrates are seen as best can be determined. No definite pulmonary nodule is seen th ough in this background detection sensitivity is lowered. Aorta shows no aneurysmal dilatation or evidence of dissection. Good opacification of the pulmonary arterial system was achieved. Though there is mild artifact I do not see obvious evidence of pulmonary thromboembolism. Evidence of pulmonary arterial hypertension is again seen with prominent central pulmonary arteries noted. The pulmonary trunk diameter measures 3. 8 cm in the same level of the ascending aortic diameter measures only 2.4 cm. IMPRESSION: 1. No evidence of pulmonary thromboembolism 2. Evidence of pulmonary arterial hypertension is again seen 3. Extensive bilateral moderate increased interstitial markings which are improved from study in mb. A component of this likely represents underlying chronic disease but, particularly compared to study in May, there also appears to be superimposed moderate infiltrate bilaterally. Signer Name: Ritchie Moss MD Signed: 10/01/2021 12:53 PM Workstation Name: [id number]
--- NOTE | 2021-10-01 17:25 | Progress Note ---
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 She had been stable on 3 liters for a few days prior to discharge and upon transfer from bed to chair this happened. Could there be something cardiac related? 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 her lungs will likely never look the same. Will place on steroids but IV given she cannot follow commands per charting and remains on bipap therapy. Very very poor prognosis. 09/28/21: No further word or documentation of transport via private aircraft to [place] in the chart. Down to 3 liters with good sats. Taper prednisone as follows: 40 daily for 4 more days, then 30 daily for 5 days, then 20 daily for 5 days, then 10 daily for 5 days then stop. Has been discharged with oxygen in the past but I do not know if they have it home or not. 09/26/21: Reviewed IMS note from yesterday. Family plans to transport patient to [place] via [facility]? Encourage aggressive weaning of FIO2. Will change steroids today. 09/24/21: WIll change to 40 of prednisone daily starting today. Wean HFNC. 09/20/21: Currently on 20q8, which is about 60 of prednisone daily. Suggest dropping to either 20q12 or change to 40 of prednisone daily starting tomorrow. Wean FiO2 for sats >88%. Will see as needed over the weekend. I am back on Thursday. 09/18/21: Lasix made no improvement. So will not repeat. Will drop steroids to 20q8 starting now. 09/16/21: Lasix 20mg IV x1 today. Prone as tolerated. Wean Flow and FiO2 for sats >88% 09/12/21: No new recs. Will drop steroids to 40q8 09/10/21: Please be more aggressive with oxygen weaning. Will consider weaning steroids again or Thursday. 09/08/21: Continue steroids at current dosing. Wean Fio2 for sats >88%. 09/06/21: Will drop steroids to 60 q8 starting now. 09/04/21: Will start to taper steroids today. Continue to wean FiO2 as tolerated. Anxiety control. High dose steroids Anxiety therapy Wean FiO2 as tolerated ABG not indicated currently as she is sleepy from IV ativan administered because she is NPO and could not get her xanax Subjective Date of service: 10/01/21 Interval history: sImilar epidose that happened on day of last discharged happened yesterday based upon what I can tell from chart. CTA was negative for PE but showed ILD which we already know she had from previous CXR's. Currently on bipap. Patient was hypercapnic and acidotic yesterday. NO repeat abg today. Objective Vital Signs - 12hr 10/01/21 10/01/21 10/01/21 07:52 10:00 11:03 Temperature Pulse Rate 105 H Pulse Rate [ 102 H From Monitor] Respiratory 37 H 20 Rate Blood Pressure 109/60 O2 Sat by Pulse 100 98 Oximetry 10/01/21 10/01/21 10/01/21 12:15 12:17 15:25 Temperature 97.9 F 98.2 F Pulse Rate 102 H 102 H 109 H Pulse Rate [ From Monitor] Respiratory 18 32 H 18 Rate Blood Pressure 94/51 118/65 O2 Sat by Pulse 100 100 100 Oximetry 10/01/21 16:31 Temperature Pulse Rate 105 H Pulse Rate [ From Monitor] Respiratory 20 Rate Blood Pressure O2 Sat by Pulse 100 Oximetry Constitutional: no acute distress ENT: oropharynx moist Neck: supple Ascultation: Bilateral: diminished breath sounds Cardiovascular: regular rate and rhythm Gastrointestinal: normoactive bowel sounds, soft, non-tender Integumentary: normal Extremities: no cyanosis Neurologic: normal mental status CBC and BMP: 09/30/21 18:27 09/30/21 18:27 ABG, PT/INR, D-dimer: ABG ABG pH 7.208 pH Units (7.350-7.450) L 09/30/21 16:45 ABG pCO2 109.9 mm Hg 09/30/21 16:45 ABG pO2 67.1 mm Hg (80.0-90.0) L 09/30/21 16:45 ABG O2 Saturation 90.1 % (95.0-99.0) L 09/30/21 16:45 PT/INR, D-dimer D-Dimer 710.59 ng/mlDDU (0-234) H 08/31/21 19:32 Abnormal lab findings: Abnormal Labs 08/31/21 08/31/2108/31/21 19:32 19:32 19:32 WBC Hct RDW 16.4 H Lymph % (Auto) [place] % (Auto) 9.0 H Lymph # (Auto) [place] # (Auto) 1.0 H Seg Neutrophils % 76.2 H Seg Neuts % (Manual) Lymphocytes % (Manual) Seg Neutrophils # 8.3 H Seg Neutrophils # Man Lymphocytes # (Manual) D-Dimer 710.59 H ABG pH ABG pO2 ABG HCO3 ABG O2 Saturation ABG Base Excess Oxyhemoglobin Sodium Potassium Chloride 92.7 L Carbon Dioxide 36 H BUN Creatinine 0.4 L D Glucose 249 H POC Glucose Calcium ALT Alkaline Phosphatase NT-Pro-B Natriuret Pep Total Protein Albumin Urine WBC (Auto) 08/31/21 08/31/21 09/01/21 19:32 21:05 09:24 WBC Hct RDW Lymph % (Auto) [place] % (Auto) Lymph # (Auto) [place] # (Auto) Seg Neutrophils % Seg Neuts % (Manual) Lymphocytes % (Manual) Seg Neutrophils # Seg Neutrophils # Man Lymphocytes # (Manual) D-Dimer ABG pH 7.244 L ABG pO2 307.7 H ABG HCO3 47.9 H ABG O2 Saturation 99.4 H ABG Base Excess 16.0 H Oxyhemoglobin Sodium Potassium Chloride Carbon Dioxide BUN Creatinine Glucose POC Glucose 106 H Calcium ALT Alkaline Phosphatase NT-Pro-B Natriuret Pep 524.1 H Total Protein Albumin Urine WBC (Auto) 09/01/21 09/01/21 09/01/21 13:39 16:22 23:56 WBC Hct RDW Lymph % (Auto) [place] % (Auto) Lymph # (Auto) [place] # (Auto) Seg Neutrophils % Seg Neuts % (Manual) Lymphocytes % (Manual) Seg Neutrophils # Seg Neutrophils # Man Lymphocytes # (Manual) D-Dimer ABG pH 7.240 L ABG pO2 198.0 H ABG HCO3 46.6 H ABG O2 Saturation ABG Base Excess 14.8 H Oxyhemoglobin Sodium Potassium Chloride Carbon Dioxide BUN Creatinine Glucose POC Glucose 154 H 188 H Calcium ALT Alkaline Phosphatase NT-Pro-B Natriuret Pep Total Protein Albumin Urine WBC (Auto) 09/02/21 09/02/21 09/02/21 01:49 07:22 07:22 WBC Hct RDW 16.4 H Lymph % (Auto) [place] % (Auto) Lymph # (Auto) [place] # (Auto) Seg Neutrophils % Seg Neuts % (Manual) 97.0 H Lymphocytes % (Manual) 2.0 L Seg Neutrophils # Seg Neutrophils # Man Lymphocytes # (Manual) 0.1 L D-Dimer ABG pH ABG pO2 ABG HCO3 ABG O2 Saturation ABG Base Excess Oxyhemoglobin Sodium Potassium Chloride 82.7 L Carbon Dioxide 41 H* BUN 21 H Creatinine 0.3 L Glucose 198 H POC Glucose 132 H Calcium ALT Alkaline Phosphatase NT-Pro-B Natriuret Pep Total Protein Albumin Urine WBC (Auto) 09/02/21 09/02/21 09/02/21 08:29 11:27 16:59 WBC Hct RDW Lymph % (Auto) [place] % (Auto) Lymph # (Auto) [place] # (Auto) Seg Neutrophils % Seg Neuts % (Manual) Lymphocytes % (Manual) Seg Neutrophils # Seg Neutrophils # Man Lymphocytes # (Manual) D-Dimer ABG pH ABG pO2 ABG HCO3 ABG O2 Saturation ABG Base Excess Oxyhemoglobin Sodium Potassium Chloride Carbon Dioxide BUN Creatinine Glucose POC Glucose 201 H 232 H 118 H Calcium ALT Alkaline Phosphatase NT-Pro-B Natriuret Pep Total Protein Albumin Urine WBC (Auto) 09/02/21 09/03/21 09/03/21 22:08 06:05 06:05 WBC Hct RDW 16.5 H Lymph % (Auto) [place] % (Auto) Lymph # (Auto) [place] # (Auto) Seg Neutrophils % Seg Neuts % (Manual) 94.0 H Lymphocytes % (Manual) 3.0 L Seg Neutrophils # Seg Neutrophils # Man Lymphocytes # (Manual) 0.2 L D-Dimer ABG pH ABG pO2 ABG HCO3 ABG O2 Saturation ABG Base Excess Oxyhemoglobin Sodium Potassium Chloride 79.3 L Carbon Dioxide 52 H* D BUN 27 H Creatinine 0.2 L Glucose 228 H POC Glucose 241 H Calcium 10.4 H ALT 71 H Alkaline Phosphatase NT-Pro-B Natriuret Pep Total Protein Albumin 3.8 L Urine WBC (Auto) 09/03/21 09/03/21 09/03/21 07:53 11:37 15:52 WBC Hct RDW Lymph % (Auto) [place] % (Auto) Lymph # (Auto) [place] # (Auto) Seg Neutrophils % Seg Neuts % (Manual) Lymphocytes % (Manual) Seg Neutrophils # Seg Neutrophils # Man Lymphocytes # (Manual) D-Dimer ABG pH ABG pO2 ABG HCO3 ABG O2 Saturation ABG Base Excess Oxyhemoglobin Sodium Potassium Chloride Carbon Dioxide BUN Creatinine Glucose POC Glucose 241 H 202 H 284 H Calcium ALT Alkaline Phosphatase NT-Pro-B Natriuret Pep Total Protein Albumin Urine WBC (Auto) 09/03/21 09/04/21 09/04/21 22:07 08:33 11:16 WBC Hct RDW Lymph % (Auto) [place] % (Auto) Lymph # (Auto) [place] # (Auto) Seg Neutrophils % Seg Neuts % (Manual) Lymphocytes % (Manual) Seg Neutrophils # Seg Neutrophils # Man Lymphocytes # (Manual) D-Dimer ABG pH ABG pO2 ABG HCO3 ABG O2 Saturation ABG Base Excess Oxyhemoglobin Sodium Potassium Chloride Carbon Dioxide BUN Creatinine Glucose POC Glucose 311 H 232 H 356 H Calcium ALT Alkaline Phosphatase NT-Pro-B Natriuret Pep Total Protein Albumin Urine WBC (Auto) 09/04/21 09/04/21 09/05/21 17:10 23:05 08:08 WBC Hct RDW Lymph % (Auto) [place] % (Auto) Lymph # (Auto) [place] # (Auto) Seg Neutrophils % Seg Neuts % (Manual) Lymphocytes % (Manual) Seg Neutrophils # Seg Neutrophils # Man Lymphocytes # (Manual) D-Dimer ABG pH ABG pO2 ABG HCO3 ABG O2 Saturation ABG Base Excess Oxyhemoglobin Sodium Potassium Chloride Carbon Dioxide BUN Creatinine Glucose POC Glucose 328 H 150 H 342 H Calcium ALT Alkaline Phosphatase NT-Pro-B Natriuret Pep Total Protein Albumin Urine WBC (Auto) 09/05/21 09/05/21 09/05/21 11:04 13:23 13:23 WBC Hct RDW 17.1 H Lymph % (Auto) [place] % (Auto) Lymph # (Auto) [place] # (Auto) Seg Neutrophils % Seg Neuts % (Manual) Lymphocytes % (Manual) Seg Neutrophils # Seg Neutrophils # Man Lymphocytes # (Manual) D-Dimer ABG pH ABG pO2 ABG HCO3 ABG O2 Saturation ABG Base Excess Oxyhemoglobin Sodium Potassium 2.6 L* D Chloride 74.4 L Carbon Dioxide 46 H* BUN Creatinine 0.3 L Glucose 389 H POC Glucose 395 H Calcium ALT Alkaline Phosphatase NT-Pro-B Natriuret Pep Total Protein Albumin Urine WBC (Auto) 09/05/21 09/05/2109/06/21 16:22 21:09 08:02 WBC Hct RDW Lymph % (Auto) [place] % (Auto) Lymph # (Auto) [place] # (Auto) Seg Neutrophils % Seg Neuts % (Manual) Lymphocytes % (Manual) Seg Neutrophils # Seg Neutrophils # Man Lymphocytes # (Manual) D-Dimer ABG pH ABG pO2 ABG HCO3 ABG O2 Saturation ABG Base Excess Oxyhemoglobin Sodium Potassium Chloride Carbon Dioxide BUN Creatinine Glucose POC Glucose 195 H 243 H 119 H Calcium ALT Alkaline Phosphatase NT-Pro-B Natriuret Pep Total Protein Albumin Urine WBC (Auto) 09/06/21 09/06/21 09/06/21 11:00 11:19 16:06 WBC Hct RDW Lymph % (Auto) [place] % (Auto) Lymph # (Auto) [place] # (Auto) Seg Neutrophils % Seg Neuts % (Manual) Lymphocytes % (Manual) Seg Neutrophils # Seg Neutrophils # Man Lymphocytes # (Manual) D-Dimer ABG pH ABG pO2 ABG HCO3 ABG O2 Saturation ABG Base Excess Oxyhemoglobin Sodium 136 L Potassium Chloride 78.3 L Carbon Dioxide 47 H* BUN Creatinine 0.3 L Glucose 354 H POC Glucose 309 H 381 H Calcium ALT Alkaline Phosphatase NT-Pro-B Natriuret Pep Total Protein Albumin Urine WBC (Auto) 09/06/21 09/07/21 09/07/21 22:25 11:11 16:50 WBC Hct RDW Lymph % (Auto) [place] % (Auto) Lymph # (Auto) [place] # (Auto) Seg Neutrophils % Seg Neuts % (Manual) Lymphocytes % (Manual) Seg Neutrophils # Seg Neutrophils # Man Lymphocytes # (Manual) D-Dimer ABG pH ABG pO2 ABG HCO3 ABG O2 Saturation ABG Base Excess Oxyhemoglobin Sodium Potassium Chloride Carbon Dioxide BUN Creatinine Glucose POC Glucose 217 H 442 H 222 H Calcium ALT Alkaline Phosphatase NT-Pro-B Natriuret Pep Total Protein Albumin Urine WBC (Auto) 09/07/21 09/08/21 09/08/21 21:52 04:31 04:31 WBC Hct 44.9 H RDW 17.2 H Lymph % (Auto) 12.3 L [place] % (Auto) Lymph # (Auto) 1.0 L [place] # (Auto) Seg Neutrophils % 79.1 H Seg Neuts % (Manual) Lymphocytes % (Manual) Seg Neutrophils # Seg Neutrophils # Man Lymphocytes # (Manual) D-Dimer ABG pH ABG pO2 ABG HCO3 ABG O2 Saturation ABG Base Excess Oxyhemoglobin Sodium Potassium 2.8 L* D Chloride 87.6 L Carbon Dioxide 45 H* BUN Creatinine 0.2 L Glucose 46 L POC Glucose 360 H Calcium ALT Alkaline Phosphatase NT-Pro-B Natriuret Pep Total Protein Albumin Urine WBC (Auto) 09/08/21 09/08/21 09/08/21 05:25 05:53 11:50 WBC Hct RDW Lymph % (Auto) [place] % (Auto) Lymph # (Auto) [place] # (Auto) Seg Neutrophils % Seg Neuts % (Manual) Lymphocytes % (Manual) Seg Neutrophils # Seg Neutrophils # Man Lymphocytes # (Manual) D-Dimer ABG pH ABG pO2 ABG HCO3 ABG O2 Saturation ABG Base Excess Oxyhemoglobin Sodium Potassium Chloride Carbon Dioxide BUN Creatinine Glucose POC Glucose 39 L 64 L 280 H Calcium ALT Alkaline Phosphatase NT-Pro-B Natriuret Pep Total Protein Albumin Urine WBC (Auto) 09/08/21 09/08/21 09/09/21 16:20 21:32 07:20 WBC Hct RDW Lymph % (Auto) [place] % (Auto) Lymph # (Auto) [place] # (Auto) Seg Neutrophils % Seg Neuts % (Manual) Lymphocytes % (Manual) Seg Neutrophils # Seg Neutrophils # Man Lymphocytes # (Manual) D-Dimer ABG pH ABG pO2 ABG HCO3 ABG O2 Saturation ABG Base Excess Oxyhemoglobin Sodium Potassium Chloride Carbon Dioxide BUN Creatinine Glucose POC Glucose 256 H 203 H 194 H Calcium ALT Alkaline Phosphatase NT-Pro-B Natriuret Pep Total Protein Albumin Urine WBC (Auto) 09/09/21 09/09/21 09/09/21 07:50 11:13 16:20 WBC Hct RDW Lymph % (Auto) [place] % (Auto) Lymph # (Auto) [place] # (Auto) Seg Neutrophils % Seg Neuts % (Manual) Lymphocytes % (Manual) Seg Neutrophils # Seg Neutrophils # Man Lymphocytes # (Manual) D-Dimer ABG pH ABG pO2 ABG HCO3 ABG O2 Saturation ABG Base Excess Oxyhemoglobin Sodium Potassium Chloride 88.8 L Carbon Dioxide 39 H BUN Creatinine < 0.2 L Glucose 197 H POC Glucose 258 H 231 H Calcium ALT Alkaline Phosphatase NT-Pro-B Natriuret Pep Total Protein Albumin Urine WBC (Auto) 09/09/21 09/10/21 09/10/21 22:17 07:00 08:02 WBC Hct RDW Lymph % (Auto) [place] % (Auto) Lymph # (Auto) [place] # (Auto) Seg Neutrophils % Seg Neuts % (Manual) Lymphocytes % (Manual) Seg Neutrophils # Seg Neutrophils # Man Lymphocytes # (Manual) D-Dimer ABG pH ABG pO2 ABG HCO3 ABG O2 Saturation ABG Base Excess Oxyhemoglobin Sodium Potassium Chloride Carbon Dioxide BUN Creatinine Glucose POC Glucose 222 H 213 H Calcium ALT Alkaline Phosphatase NT-Pro-B Natriuret Pep Total Protein Albumin Urine WBC (Auto) 24.0 H 09/10/21 09/10/21 09/10/21 11:22 15:49 22:08 WBC Hct RDW Lymph % (Auto) [place] % (Auto) Lymph # (Auto) [place] # (Auto) Seg Neutrophils % Seg Neuts % (Manual) Lymphocytes % (Manual) Seg Neutrophils # Seg Neutrophils # Man Lymphocytes # (Manual) D-Dimer ABG pH ABG pO2 ABG HCO3 ABG O2 Saturation ABG Base Excess Oxyhemoglobin Sodium Potassium Chloride Carbon Dioxide BUN Creatinine Glucose POC Glucose 241 H 201 H 212 H Calcium ALT Alkaline Phosphatase NT-Pro-B Natriuret Pep Total Protein Albumin Urine WBC (Auto) 09/11/21 09/11/21 09/11/21 08:01 11:21 16:41 WBC Hct RDW Lymph % (Auto) [place] % (Auto) Lymph # (Auto) [place] # (Auto) Seg Neutrophils % Seg Neuts % (Manual) Lymphocytes % (Manual) Seg Neutrophils # Seg Neutrophils # Man Lymphocytes # (Manual) D-Dimer ABG pH ABG pO2 ABG HCO3 ABG O2 Saturation ABG Base Excess Oxyhemoglobin Sodium Potassium Chloride Carbon Dioxide BUN Creatinine Glucose POC Glucose 207 H 265 H 234 H Calcium ALT Alkaline Phosphatase NT-Pro-B Natriuret Pep Total Protein Albumin Urine WBC (Auto) 09/11/21 09/12/21 09/12/21 22:09 08:38 11:28 WBC Hct RDW Lymph % (Auto) [place] % (Auto) Lymph # (Auto) [place] # (Auto) Seg Neutrophils % Seg Neuts % (Manual) Lymphocytes % (Manual) Seg Neutrophils # Seg Neutrophils # Man Lymphocytes # (Manual) D-Dimer ABG pH ABG pO2 ABG HCO3 ABG O2 Saturation ABG Base Excess Oxyhemoglobin Sodium Potassium Chloride Carbon Dioxide BUN Creatinine Glucose POC Glucose 293 H 222 H 326 H Calcium ALT Alkaline Phosphatase NT-Pro-B Natriuret Pep Total Protein Albumin Urine WBC (Auto) 09/12/21 09/12/21 09/13/21 16:25 21:45 07:41 WBC Hct RDW Lymph % (Auto) [place] % (Auto) Lymph # (Auto) [place] # (Auto) Seg Neutrophils % Seg Neuts % (Manual) Lymphocytes % (Manual) Seg Neutrophils # Seg Neutrophils # Man Lymphocytes # (Manual) D-Dimer ABG pH ABG pO2 ABG HCO3 ABG O2 Saturation ABG Base Excess Oxyhemoglobin Sodium Potassium Chloride Carbon Dioxide BUN Creatinine Glucose POC Glucose 130 H 191 H 165 H Calcium ALT Alkaline Phosphatase NT-Pro-B Natriuret Pep Total Protein Albumin Urine WBC (Auto) 09/13/21 09/13/21 09/13/21 11:12 16:59 22:01 WBC Hct RDW Lymph % (Auto) [place] % (Auto) Lymph # (Auto) [place] # (Auto) Seg Neutrophils % Seg Neuts % (Manual) Lymphocytes % (Manual) Seg Neutrophils # Seg Neutrophils # Man Lymphocytes # (Manual) D-Dimer ABG pH ABG pO2 ABG HCO3 ABG O2 Saturation ABG Base Excess Oxyhemoglobin Sodium Potassium Chloride Carbon Dioxide BUN Creatinine Glucose POC Glucose 263 H 162 H 276 H Calcium ALT Alkaline Phosphatase NT-Pro-B Natriuret Pep Total Protein Albumin Urine WBC (Auto) 09/14/21 09/14/21 09/14/21 08:12 12:28 16:30 WBC Hct RDW Lymph % (Auto) [place] % (Auto) Lymph # (Auto) [place] # (Auto) Seg Neutrophils % Seg Neuts % (Manual) Lymphocytes % (Manual) Seg Neutrophils # Seg Neutrophils # Man Lymphocytes # (Manual) D-Dimer ABG pH ABG pO2 ABG HCO3 ABG O2 Saturation ABG Base Excess Oxyhemoglobin Sodium Potassium Chloride Carbon Dioxide BUN Creatinine Glucose POC Glucose 179 H 212 H 227 H Calcium ALT Alkaline Phosphatase NT-Pro-B Natriuret Pep Total Protein Albumin Urine WBC (Auto) 09/14/21 09/15/21 09/15/21 22:56 12:12 18:05 WBC Hct RDW Lymph % (Auto) [place] % (Auto) Lymph # (Auto) [place] # (Auto) Seg Neutrophils % Seg Neuts % (Manual) Lymphocytes % (Manual) Seg Neutrophils # Seg Neutrophils # Man Lymphocytes # (Manual) D-Dimer ABG pH ABG pO2 ABG HCO3 ABG O2 Saturation ABG Base Excess Oxyhemoglobin Sodium Potassium Chloride Carbon Dioxide BUN Creatinine Glucose POC Glucose 275 H 297 H 247 H Calcium ALT Alkaline Phosphatase NT-Pro-B Natriuret Pep Total Protein Albumin Urine WBC (Auto) 09/15/21 09/16/21 09/16/21 22:21 07:51 11:22 WBC Hct RDW Lymph % (Auto) [place] % (Auto) Lymph # (Auto) [place] # (Auto) Seg Neutrophils % Seg Neuts % (Manual) Lymphocytes % (Manual) Seg Neutrophils # Seg Neutrophils # Man Lymphocytes # (Manual) D-Dimer ABG pH ABG pO2 ABG HCO3 ABG O2 Saturation ABG Base Excess Oxyhemoglobin Sodium Potassium Chloride Carbon Dioxide BUN Creatinine Glucose POC Glucose 309 H 196 H 278 H Calcium ALT Alkaline Phosphatase NT-Pro-B Natriuret Pep Total Protein Albumin Urine WBC (Auto) 09/16/21 09/16/21 09/17/21 16:10 21:56 07:45 WBC Hct RDW Lymph % (Auto) [place] % (Auto) Lymph # (Auto) [place] # (Auto) Seg Neutrophils % Seg Neuts % (Manual) Lymphocytes % (Manual) Seg Neutrophils # Seg Neutrophils # Man Lymphocytes # (Manual) D-Dimer ABG pH ABG pO2 ABG HCO3 ABG O2 Saturation ABG Base Excess Oxyhemoglobin Sodium Potassium Chloride Carbon Dioxide BUN Creatinine Glucose POC Glucose 264 H 246 H 174 H Calcium ALT Alkaline Phosphatase NT-Pro-B Natriuret Pep Total Protein Albumin Urine WBC (Auto) 09/17/21 09/17/21 09/17/21 11:25 15:43 21:19 WBC Hct RDW Lymph % (Auto) [place] % (Auto) Lymph # (Auto) [place] # (Auto) Seg Neutrophils % Seg Neuts % (Manual) Lymphocytes % (Manual) Seg Neutrophils # Seg Neutrophils # Man Lymphocytes # (Manual) D-Dimer ABG pH ABG pO2 ABG HCO3 ABG O2 Saturation ABG Base Excess Oxyhemoglobin Sodium Potassium Chloride Carbon Dioxide BUN Creatinine Glucose POC Glucose 275 H 242 H 255 H Calcium ALT Alkaline Phosphatase NT-Pro-B Natriuret Pep Total Protein Albumin Urine WBC (Auto) 09/18/21 09/18/21 09/18/21 08:00 11:50 17:30 WBC Hct RDW Lymph % (Auto) [place] % (Auto) Lymph # (Auto) [place] # (Auto) Seg Neutrophils % Seg Neuts % (Manual) Lymphocytes % (Manual) Seg Neutrophils # Seg Neutrophils # Man Lymphocytes # (Manual) D-Dimer ABG pH ABG pO2 ABG HCO3 ABG O2 Saturation ABG Base Excess Oxyhemoglobin Sodium Potassium Chloride Carbon Dioxide BUN Creatinine Glucose POC Glucose 170 H 244 H 218 H Calcium ALT Alkaline Phosphatase NT-Pro-B Natriuret Pep Total Protein Albumin Urine WBC (Auto) 09/18/21 09/19/21 09/19/21 22:32 12:20 14:00 WBC Hct RDW 18.6 H Lymph % (Auto) [place] % (Auto) Lymph # (Auto) [place] # (Auto) Seg Neutrophils % Seg Neuts % (Manual) Lymphocytes % (Manual) Seg Neutrophils # Seg Neutrophils # Man Lymphocytes # (Manual) D-Dimer ABG pH ABG pO2 ABG HCO3 ABG O2 Saturation ABG Base Excess Oxyhemoglobin Sodium Potassium Chloride Carbon Dioxide BUN Creatinine Glucose POC Glucose 295 H 220 H Calcium ALT Alkaline Phosphatase NT-Pro-B Natriuret Pep Total Protein Albumin Urine WBC (Auto) 09/19/21 09/19/21 09/19/21 14:00 18:32 21:19 WBC Hct RDW Lymph % (Auto) [place] % (Auto) Lymph # (Auto) [place] # (Auto) Seg Neutrophils % Seg Neuts % (Manual) Lymphocytes % (Manual) Seg Neutrophils # Seg Neutrophils # Man Lymphocytes # (Manual) D-Dimer ABG pH ABG pO2 ABG HCO3 ABG O2 Saturation ABG Base Excess Oxyhemoglobin Sodium 136 L Potassium 5.7 H Chloride 92.1 L Carbon Dioxide 37 H BUN 21 H Creatinine 0.2 L Glucose 230 H POC Glucose 173 H 190 H Calcium ALT Alkaline Phosphatase NT-Pro-B Natriuret Pep Total Protein Albumin Urine WBC (Auto) 09/20/21 09/20/21 09/20/21 04:32 07:57 11:06 WBC Hct RDW Lymph % (Auto) [place] % (Auto) Lymph # (Auto) [place] # (Auto) Seg Neutrophils % Seg Neuts % (Manual) Lymphocytes % (Manual) Seg Neutrophils # Seg Neutrophils # Man Lymphocytes # (Manual) D-Dimer ABG pH ABG pO2 ABG HCO3 ABG O2 Saturation ABG Base Excess Oxyhemoglobin Sodium 135 L Potassium Chloride 92.3 L Carbon Dioxide 33 H BUN 18 H Creatinine 0.2 L Glucose 264 H POC Glucose 237 H 232 H Calcium ALT Alkaline Phosphatase NT-Pro-B Natriuret Pep Total Protein Albumin Urine WBC (Auto) 09/20/21 09/20/21 09/21/21 15:19 20:04 07:24 WBC Hct RDW Lymph % (Auto) [place] % (Auto) Lymph # (Auto) [place] # (Auto) Seg Neutrophils % Seg Neuts % (Manual) Lymphocytes % (Manual) Seg Neutrophils # Seg Neutrophils # Man Lymphocytes # (Manual) D-Dimer ABG pH ABG pO2 ABG HCO3 ABG O2 Saturation ABG Base Excess Oxyhemoglobin Sodium Potassium Chloride Carbon Dioxide BUN Creatinine Glucose POC Glucose 195 H 209 H 58 L Calcium ALT Alkaline Phosphatase NT-Pro-B Natriuret Pep Total Protein Albumin Urine WBC (Auto) 09/21/21 09/21/21 09/21/21 11:42 15:48 21:10 WBC Hct RDW Lymph % (Auto) [place] % (Auto) Lymph # (Auto) [place] # (Auto) Seg Neutrophils % Seg Neuts % (Manual) Lymphocytes % (Manual) Seg Neutrophils # Seg Neutrophils # Man Lymphocytes # (Manual) D-Dimer ABG pH ABG pO2 ABG HCO3 ABG O2 Saturation ABG Base Excess Oxyhemoglobin Sodium Potassium Chloride Carbon Dioxide BUN Creatinine Glucose POC Glucose 137 H 192 H 321 H Calcium ALT Alkaline Phosphatase NT-Pro-B Natriuret Pep Total Protein Albumin Urine WBC (Auto) 09/22/21 09/22/21 09/22/21 07:31 11:20 16:08 WBC Hct RDW Lymph % (Auto) [place] % (Auto) Lymph # (Auto) [place] # (Auto) Seg Neutrophils % Seg Neuts % (Manual) Lymphocytes % (Manual) Seg Neutrophils # Seg Neutrophils # Man Lymphocytes # (Manual) D-Dimer ABG pH ABG pO2 ABG HCO3 ABG O2 Saturation ABG Base Excess Oxyhemoglobin Sodium Potassium Chloride Carbon Dioxide BUN Creatinine Glucose POC Glucose 189 H 186 H 182 H Calcium ALT Alkaline Phosphatase NT-Pro-B Natriuret Pep Total Protein Albumin Urine WBC (Auto) 09/22/21 09/23/21 09/23/21 21:55 08:02 12:09 WBC Hct RDW Lymph % (Auto) [place] % (Auto) Lymph # (Auto) [place] # (Auto) Seg Neutrophils % Seg Neuts % (Manual) Lymphocytes % (Manual) Seg Neutrophils # Seg Neutrophils # Man Lymphocytes # (Manual) D-Dimer ABG pH ABG pO2 ABG HCO3 ABG O2 Saturation ABG Base Excess Oxyhemoglobin Sodium Potassium Chloride Carbon Dioxide BUN Creatinine Glucose POC Glucose 235 H 114 H 176 H Calcium ALT Alkaline Phosphatase NT-Pro-B Natriuret Pep Total Protein Albumin Urine WBC (Auto) 09/23/21 09/23/21 09/24/21 17:21 20:20 07:50 WBC Hct RDW Lymph % (Auto) [place] % (Auto) Lymph # (Auto) [place] # (Auto) Seg Neutrophils % Seg Neuts % (Manual) Lymphocytes % (Manual) Seg Neutrophils # Seg Neutrophils # Man Lymphocytes # (Manual) D-Dimer ABG pH ABG pO2 ABG HCO3 ABG O2 Saturation ABG Base Excess Oxyhemoglobin Sodium Potassium Chloride Carbon Dioxide BUN Creatinine Glucose POC Glucose 186 H 167 H 69 L Calcium ALT Alkaline Phosphatase NT-Pro-B Natriuret Pep Total Protein Albumin Urine WBC (Auto) 09/24/21 09/24/21 09/24/21 11:22 16:12 20:27 WBC Hct RDW Lymph % (Auto) [place] % (Auto) Lymph # (Auto) [place] # (Auto) Seg Neutrophils % Seg Neuts % (Manual) Lymphocytes % (Manual) Seg Neutrophils # Seg Neutrophils # Man Lymphocytes # (Manual) D-Dimer ABG pH ABG pO2 ABG HCO3 ABG O2 Saturation ABG Base Excess Oxyhemoglobin Sodium Potassium Chloride Carbon Dioxide BUN Creatinine Glucose POC Glucose 230 H 193 H 252 H Calcium ALT Alkaline Phosphatase NT-Pro-B Natriuret Pep Total Protein Albumin Urine WBC (Auto) 09/25/21 09/25/21 09/25/21 07:45 11:24 15:04 WBC Hct RDW Lymph % (Auto) [place] % (Auto) Lymph # (Auto) [place] # (Auto) Seg Neutrophils % Seg Neuts % (Manual) Lymphocytes % (Manual) Seg Neutrophils # Seg Neutrophils # Man Lymphocytes # (Manual) D-Dimer ABG pH ABG pO2 ABG HCO3 ABG O2 Saturation ABG Base Excess Oxyhemoglobin Sodium Potassium Chloride Carbon Dioxide BUN Creatinine Glucose POC Glucose 46 L 161 H 165 H Calcium ALT Alkaline Phosphatase NT-Pro-B Natriuret Pep Total Protein Albumin Urine WBC (Auto) 09/25/21 09/26/21 09/26/21 21:04 07:33 11:16 WBC Hct RDW Lymph % (Auto) [place] % (Auto) Lymph # (Auto) [place] # (Auto) Seg Neutrophils % Seg Neuts % (Manual) Lymphocytes % (Manual) Seg Neutrophils # Seg Neutrophils # Man Lymphocytes # (Manual) D-Dimer ABG pH ABG pO2 ABG HCO3 ABG O2 Saturation ABG Base Excess Oxyhemoglobin Sodium Potassium Chloride Carbon Dioxide BUN Creatinine Glucose POC Glucose 263 H 207 H 179 H Calcium ALT Alkaline Phosphatase NT-Pro-B Natriuret Pep Total Protein Albumin Urine WBC (Auto) 09/26/21 09/26/21 09/27/21 15:54 21:02 07:42 WBC Hct RDW Lymph % (Auto) [place] % (Auto) Lymph # (Auto) [place] # (Auto) Seg Neutrophils % Seg Neuts % (Manual) Lymphocytes % (Manual) Seg Neutrophils # Seg Neutrophils # Man Lymphocytes # (Manual) D-Dimer ABG pH ABG pO2 ABG HCO3 ABG O2 Saturation ABG Base Excess Oxyhemoglobin Sodium Potassium Chloride Carbon Dioxide BUN Creatinine Glucose POC Glucose 128 H 122 H 192 H Calcium ALT Alkaline Phosphatase NT-Pro-B Natriuret Pep Total Protein Albumin Urine WBC (Auto) 09/27/21 09/27/21 09/27/21 12:01 16:22 20:48 WBC Hct RDW Lymph % (Auto) [place] % (Auto) Lymph # (Auto) [place] # (Auto) Seg Neutrophils % Seg Neuts % (Manual) Lymphocytes % (Manual) Seg Neutrophils # Seg Neutrophils # Man Lymphocytes # (Manual) D-Dimer ABG pH ABG pO2 ABG HCO3 ABG O2 Saturation ABG Base Excess Oxyhemoglobin Sodium Potassium Chloride Carbon Dioxide BUN Creatinine Glucose POC Glucose 264 H 297 H 263 H Calcium ALT Alkaline Phosphatase NT-Pro-B Natriuret Pep Total Protein Albumin Urine WBC (Auto) 09/28/21 09/28/21 09/28/21 05:38 05:38 07:33 WBC Hct RDW 18.3 H Lymph % (Auto) 9.3 L [place] % (Auto) 7.7 H Lymph # (Auto) 0.6 L [place] # (Auto) Seg Neutrophils % 82.5 H Seg Neuts % (Manual) Lymphocytes % (Manual) Seg Neutrophils # Seg Neutrophils # Man Lymphocytes # (Manual) D-Dimer ABG pH ABG pO2 ABG HCO3 ABG O2 Saturation ABG Base Excess Oxyhemoglobin Sodium 134 L Potassium Chloride 87.4 L Carbon Dioxide 39 H BUN 21 H Creatinine < 0.2 L Glucose 154 H POC Glucose 144 H Calcium ALT 63 H Alkaline Phosphatase NT-Pro-B Natriuret Pep Total Protein 6.0 L Albumin 3.6 L Urine WBC (Auto) 09/28/21 09/28/21 09/28/21 11:35 15:41 20:26 WBC Hct RDW Lymph % (Auto) [place] % (Auto) Lymph # (Auto) [place] # (Auto) Seg Neutrophils % Seg Neuts % (Manual) Lymphocytes % (Manual) Seg Neutrophils # Seg Neutrophils # Man Lymphocytes # (Manual) D-Dimer ABG pH ABG pO2 ABG HCO3 ABG O2 Saturation ABG Base Excess Oxyhemoglobin Sodium Potassium Chloride Carbon Dioxide BUN Creatinine Glucose POC Glucose 196 H 228 H 178 H Calcium ALT Alkaline Phosphatase NT-Pro-B Natriuret Pep Total Protein Albumin Urine WBC (Auto) 09/29/21 09/29/21 09/29/21 11:32 16:44 21:17 WBC Hct RDW Lymph % (Auto) [place] % (Auto) Lymph # (Auto) [place] # (Auto) Seg Neutrophils % Seg Neuts % (Manual) Lymphocytes % (Manual) Seg Neutrophils # Seg Neutrophils # Man Lymphocytes # (Manual) D-Dimer ABG pH ABG pO2 ABG HCO3 ABG O2 Saturation ABG Base Excess Oxyhemoglobin Sodium Potassium Chloride Carbon Dioxide BUN Creatinine Glucose POC Glucose 217 H 287 H 251 H Calcium ALT Alkaline Phosphatase NT-Pro-B Natriuret Pep Total Protein Albumin Urine WBC (Auto) 09/30/21 09/30/21 09/30/21 10:54 16:36 16:45 WBC Hct RDW Lymph % (Auto) [place] % (Auto) Lymph # (Auto) [place] # (Auto) Seg Neutrophils % Seg Neuts % (Manual) Lymphocytes % (Manual) Seg Neutrophils # Seg Neutrophils # Man Lymphocytes # (Manual) D-Dimer ABG pH 7.208 L ABG pO2 67.1 L ABG HCO3 42.8 H ABG O2 Saturation 90.1 L ABG Base Excess 10.3 H Oxyhemoglobin 88.1 L Sodium Potassium Chloride Carbon Dioxide BUN Creatinine Glucose POC Glucose 150 H 250 H Calcium ALT Alkaline Phosphatase NT-Pro-B Natriuret Pep Total Protein Albumin Urine WBC (Auto) 09/30/21 09/30/21 10/01/21 18:27 18:27 08:36 WBC 11.5 H Hct RDW 18.9 H Lymph % (Auto) [place] % (Auto) Lymph # (Auto) [place] # (Auto) Seg Neutrophils % Seg Neuts % (Manual) 99.0 H Lymphocytes % (Manual) 0 L Seg Neutrophils # Seg Neutrophils # Man 11.4 H Lymphocytes # (Manual) 0.0 L D-Dimer ABG pH ABG pO2 ABG HCO3 ABG O2 Saturation ABG Base Excess Oxyhemoglobin Sodium Potassium Chloride 89.0 L Carbon Dioxide 36 H BUN 19 H Creatinine < 0.2 L Glucose 430 H POC Glucose 270 H Calcium ALT 117 H Alkaline Phosphatase 135 H NT-Pro-B Natriuret Pep Total Protein Albumin 3.7 L Urine WBC (Auto) 10/01/21 10/01/21 11:08 15:23 WBC Hct RDW Lymph % (Auto) [place] % (Auto) Lymph # (Auto) [place] # (Auto) Seg Neutrophils % Seg Neuts % (Manual) Lymphocytes % (Manual) Seg Neutrophils # Seg Neutrophils # Man Lymphocytes # (Manual) D-Dimer ABG pH ABG pO2 ABG HCO3 ABG O2 Saturation ABG Base Excess Oxyhemoglobin Sodium Potassium Chloride Carbon Dioxide BUN Creatinine Glucose POC Glucose 235 H 222 H Calcium ALT Alkaline Phosphatase NT-Pro-B Natriuret Pep Total Protein Albumin Urine WBC (Auto)
[2021-10-02] MEDS: ENOXAPARIN 60 MG/0.6 ML INJ SUB-Q SCH ×2 (05:25→17:25)
[2021-10-02] MEDS: methylPREDNISolone Sod Succinate 40 MG/1 ML INJ IV SCH (09:51)
[2021-10-02] MEDS: INSULIN LISPRO 100 UNIT/ML SUB-Q SCH ×3 (11:59→23:30)
[2021-10-02] MEDS: FAMOTIDINE 20 MG TAB PO SCH ×2 (11:59→23:30)
[2021-10-03] MEDS ORDERED: SODIUM CHLORIDE 0.9% 500 ML 500 ML IV ONE (00:36)
[2021-10-03 02:14] LABS: ABG Base Excess 12.8 mmol/L (-2.0-3.0); ABG Methemoglobin 0.7 % (0.0-1.5); ABG Oxygen Saturation 89.4 % (95.0-99.0); ABG PCO2 159.6 mm Hg; ABG PO2 71.5 mm Hg (80.0-90.0)
[2021-10-03 02:25] LABS: ABG PH 7.097 pH Units (7.350-7.450)
[2021-10-03] MEDS ORDERED: SODIUM CHLORIDE 0.9% 1000 ML 1,000 ML ONE (03:10)
[2021-10-03] MEDS ORDERED: LORazepam 2 MG/ML VIAL ONE (03:32)
[2021-10-03] MEDS ORDERED: LORazepam 2 MG/ML VIAL IV PRN (03:37)
[2021-10-03] MEDS ORDERED: SODIUM CHLORIDE 0.9% 1000 ML 1,000 ML IV ONE (03:39)
[2021-10-03 06:40] LABS: ABG Base Excess 12.4 mmol/L (-2.0-3.0); ABG HCO3 47.4 mmol/L (20.0-26.0); ABG Methemoglobin 0.8 % (0.0-1.5); ABG Oxygen Saturation 96.6 % (95.0-99.0); ABG PCO2 157.3 mm Hg
[2021-10-03 06:54] LABS: ABG PH 7.097 pH Units (7.350-7.450)
--- NOTE | 2021-10-03 09:04 | XRay Report ---
CHEST - 1 VIEW 0804 hours INDICATION: Hypoxia COMPARISON: Yesterday FINDINGS: Support devices: None Heart: Stable mild cardiomegaly Lungs/pleura: Stable low lung volumes with diffuse interstitial infiltrates. No pleural effusion or pneumothorax. Additional findings: There is moderate to large gas in the proximal stomach. IMPRESSION: Unchanged exam. Signer Name: Josh Santoyo Jr, MD Signed: 10/03/2021 9:00 AM Workstation Name: [id number]
[2021-10-03 09:25] LABS: ABG HCO3 47.1 mmol/L (20.0-26.0); ABG Methemoglobin 0.8 % (0.0-1.5); ABG PCO2 140.3 mm Hg; ABG PO2 67.1 mm Hg (80.0-90.0)
[2021-10-03 09:29] LABS: ABG PH 7.144 pH Units (7.350-7.450)
[2021-10-03] MEDS ORDERED: FAMOTIDINE 20 MG/2 ML INJ IV SCH (10:00)
--- NOTE | 2021-10-03 10:04 | Progress Note ---
Assessment and Plan - Patient Problems (1) Acute hypercapnic respiratory failure Current Visit: Yes Status: Acute Plan to address problem: Supplemental oxygen, supportive care, pulmonary toilet. Patient medically optimized at this time. Patient placed on noninvasive positive pressure ventilation and currently being weaned successfully. Continue supportive care. (2) Debility Current Visit: Yes Status: Acute Plan to address problem: Supportive care, range of motion exercises as tolerated (3) Pulmonary fibrosis, postinflammatory Current Visit: Yes Status: Acute Plan to address problem: Supportive care, steroid therapy, continue medical management. (4) Coronavirus infection Current Visit: No Status: Acute Plan to address problem: Resolved, supportive care. (5) Advance care planning Current Visit: No Status: Acute Plan to address problem: Disease education conducted, care plan discussed, diagnosis discussed, prognosis discussed, patient is full code. Patient knowledges understanding and agreement with care plan, +30 minutes. History Interval history: 50 YO Female HD #31 with Sepsis, Acute on Chronic Respiratory Failure, Severe Pulmonary Fibrosis S/P coronavirus infection. Patient has poor prognosis. Sophia ent pending discharge to home. Pt resting in bed, currently on BIPAP. Nursing staff and respiratory staff informed to continue to wean patient off bipap today. No reported nursing events. Pt is alert and responsive. Hospitalist Physical - Constitutional Vitals: Temp Pulse Resp BP Pulse Ox 99.9 F H 99 H 40 H 111/61 97 10/03/21 03:34 10/03/21 09:00 10/03/21 09:00 10/03/21 09:00 10/03/21 09:00 General appearance: Present: mild distress, cachectic, other (On 8 L oxygen, alert and awake) - EENT Eyes: Present: PERRL ENT: hearing intact - Neck Neck: Present: supple - Respiratory Respiratory effort: labored Respiratory: bilateral: diminished, rhonchi - Cardiovascular Rhythm: regular Heart Sounds: Present: S1 & S2 - Extremities Extremities: no ischemia Extremity abnormal: edema Peripheral Pulses: within normal limits - Abdominal General gastrointestinal: soft, non-tender, non-distended - Integumentary Integumentary: Present: clear, dry - Psychiatric Psychiatric: cooperative - Neurologic Neurologic: CNII-XII intact Results - Labs CBC & Chem 7: 09/30/21 18:27 09/30/21 18:27 Labs: Laboratory Last Values WBC 11.5 K/mm3 (4.5-11.0) H 09/30/21 18: RBC 4.61 M/mm3 (3.65-5.03) 09/30/21 18: Hgb 13.4 gm/dl (10.1-14.3) 09/30/21 18: Hct 42.9 % (30.3-42.9) 09/30/21 18: MCV 93 fl (79-97) 09/30/21 18: MCH 29 pg (28-32) 09/30/21 18: MCHC 31 % (30-34) 09/30/21 18: RDW 18.9 % (13.2-15.2) H 09/30/21 18: Plt Count 237 K/mm3 (140-440) 09/30/21 18: Lymph % (Auto) 9.3 % (13.4-35.0) L 09/28/21 05:38 [place] % (Auto) 7.7 % (0.0-7.3) H 09/28/21 05:38 Eos % (Auto) 0.2 % (0.0-4.3) 09/28/21 05:38 Baso % (Auto) 0.3 % (0.0-1.8) 09/28/21 05:38 Lymph # (Auto) 0.6 K/mm3 (1.2-5.4) L 09/28/21 05:38 [place] # (Auto) 0.5 K/mm3 (0.0-0.8) 09/28/21 05:38 Eos # (Auto) 0.0 K/mm3 (0.0-0.4) 09/28/21 05:38 Baso # (Auto) 0.0 K/mm3 (0.0-0.1) 09/28/21 05:38 Add Manual Diff Complete 09/30/21 18: Total Counted 100 09/30/21 18: Seg Neutrophils % Logistics Planner 09/30/21 18: Seg Neuts % (Manual) 99.0 % (40.0-70.0) H 09/30/21 18: Band Neutrophils % 0 % 09/30/21 18: Lymphocytes % (Manual) 0 % (13.4-35.0) L 09/30/21 18:27 Reactive Lymphs % (Man) 0 % 09/30/21 18:27 Monocytes % (Manual) 1.0 % (0.0-7.3) 09/30/21 18:27 Eosinophils % (Manual) 0 % (0.0-4.3) 09/30/21 18:27 Basophils % (Manual) 0 % (0.0-1.8) 09/30/21 18:27 Metamyelocytes % 0 % 09/30/21 18:27 Myelocytes % 0 % 09/30/21 18:27 Promyelocytes % 0 % 09/30/21 18:27 Blast Cells % 0 % 09/30/21 18: Nucleated RBC % Not Reportable 09/30/21 18: Seg Neutrophils # 4.9 K/mm3 (1.8-7.7) 09/28/21 05:38 Seg Neutrophils # Man 11.4 K/mm3 (1.8-7.7) H 09/30/21 18: Band Neutrophils # 0.0 K/mm3 09/30/21 18:27 Lymphocytes # (Manual) 0.0 K/mm3 (1.2-5.4) L 09/30/21 18:27 Abs React Lymphs (Man) 0.0 K/mm3 09/30/21 18:27 Monocytes # (Manual) 0.1 K/mm3 (0.0-0.8) 09/30/21 18:27 Eosinophils # (Manual) 0.0 K/mm3 (0.0-0.4) 09/30/21 18:27 Basophils # (Manual) 0.0 K/mm3 (0.0-0.1) 09/30/21 18:27 Metamyelocytes # 0.0 K/mm3 09/30/21 18:27 Myelocytes # 0.0 K/mm3 09/30/21 18:27 Promyelocytes # 0.0 K/mm3 09/30/21 18:27 Blast Cells # 0.0 K/mm3 09/30/21 18:27 WBC Morphology Not Reportable 09/30/21 18:27 Hypersegmented Neuts Not Reportable 09/30/21 18:27 Hyposegmented Neuts Not Reportable 09/30/21 18: Hypogranular Neuts Not Reportable 09/30/21 18:27 Smudge Cells Not Reportable 09/30/21 18:27 Toxic Granulation Not Reportable 09/30/21 18:27 Toxic Vacuolation Not Reportable 09/30/21 18:27 Dohle Bodies Not Reportable 09/30/21 18:27 Pelger-Huet Anomaly Not Reportable 09/30/21 18:27 Janelle Rods Not Reportable 09/30/21 18:27 Platelet Estimate Consistent w auto 09/30/21 18:27 Clumped Platelets Not Reportable 09/30/21 18:27 Plt Clumps, EDTA Not Reportable 09/30/21 18:27 Large Platelets Not Reportable 09/30/21 18:27 Giant Platelets Not Reportable 09/30/21 18:27 Platelet Satelliting Not Reportable 09/30/21 18:27 Plt Morphology Comment Not Reportable 09/30/21 18:27 RBC Morphology Not Reportable 09/30/21 18:27 Dimorphic RBCs Not Reportable 09/30/21 18:27 Polychromasia Not Reportable 09/30/21 18:27 Hypochromasia Not Reportable 09/30/21 18:27 Poikilocytosis Not Reportable 09/30/21 18:27 Anisocytosis 1+ 09/30/21 18:27 Microcytosis Few 09/30/21 18:27 Macrocytosis Not Reportable 09/30/21 18:27 Spherocytes Not Reportable 09/30/21 18:27 Pappenheimer Bodies Not Reportable 09/30/21 18:27 Sickle Cells Not Reportable 09/30/21 18:27 Target Cells Not Reportable 09/30/21 18:27 Tear Drop Cells Not Reportable 09/30/21 18:27 Ovalocytes Not Reportable 09/30/21 18:27 Stomatocytes 3+ 09/03/21 06:05 Helmet Cells Not Reportable 09/30/21 18:27 [place] Bodies Not Reportable 09/30/21 18:27 [place] Rings Not Reportable 09/30/21 18:27 [place] Cells Not Reportable 09/30/21 18:27 Bite Cells Not Reportable 09/30/21 18:27 Crenated Cell Not Reportable 09/30/21 18:27 Elliptocytes Not Reportable 09/30/21 18:27 Acanthocytes (Spur) Not Reportable 09/30/21 18:27 Rouleaux Not Reportable 09/30/21 18:27 Hemoglobin C Crystals Not Reportable 09/30/21 18:27 Schistocytes Rare 09/30/21 18:27 Malaria parasites Not Reportable 09/30/21 18:27 [place] Bodies Not Reportable 09/30/21 18:27 Hem Pathologist Commnt No 09/30/21 18:27 D-Dimer 710.59 ng/mlDDU (0-234) H 08/31/21 19:32 ABG pH 7.144 pH Units (7.350-7.450) L* 10/03/21 09:10 POC ABG pCO2 Cancelled 10/03/21 01:46 ABG pCO2 140.3 mm Hg 10/03/21 09:10 POC ABG pO2 Cancelled 10/03/21 01:46 ABG pO2 67.1 mm Hg (80.0-90.0) L 10/03/21 09:10 POC ABG HCO3 Cancelled 10/03/21 01:46 ABG HCO3 47.1 mmol/L (20.0-26.0) H 10/03/21 09:10 ABG O2 Saturation 92.0 % (95.0-99.0) L 10/03/21 09:10 ABG O2 Content 15.8 (0.0-44) 10/03/21 09:10 POC ABG Base Excess Cancelled 10/03/21 01:46 ABG Base Excess 13.0 mmol/L (-2.0-3.0) H 10/03/21 09:10 ABG Hemoglobin 12.5 gm/dl (12.0-16.0) 10/03/21 09:10 ABG Oxyhemoglobin Cancelled 10/03/21 01:46 ABG Carboxyhemoglobin 1.4 % (0.0-5.0) 10/03/21 09:10 ABG Methemoglobin 0.8 % (0.0-1.5) 10/03/21 09:10 ABG Sodium Cancelled 10/03/21 01:46 ABG Potassium Cancelled 10/03/21 01:46 ABG Chloride Cancelled 10/03/21 01:46 ABG Glucose Cancelled 10/03/21 01:46 ABG Lactate Cancelled 10/03/21 01:46 Oxyhemoglobin 90.0 % (95.0-99.0) L 10/03/21 09:10 Carboxyhemoglobin Cancelled 10/03/21 01:46 FiO2 100 % 10/03/21 09:10 FiO2 % Cancelled 10/03/21 01:46 Sodium 137 mmol/L (137-145) 09/30/21 18:27 Potassium 4.9 mmol/L (3.6-5.0) 09/30/21 18:27 Chloride 89.0 mmol/L (98-107) L 09/30/21 18:27 Carbon Dioxide 36 mmol/L (22-30) H 09/30/21 18:27 Anion Gap 17 mmol/L 09/30/21 18:27 BUN 19 mg/dL (7-17) H 09/30/21 18:27 Creatinine < 0.2 mg/dL (0.6-1.2) L 09/30/21 18:27 Estimated GFR > 60 ml/min 09/30/21 18:27 BUN/Creatinine Ratio 95 % 09/30/21 18:27 Glucose 430 mg/dL (65-100) H 09/30/21 18:27 POC Glucose 223 mg/dL (70-105) H 10/03/21 09:01 Calcium 9.4 mg/dL (8.4-10.2) 09/30/21 18:27 Magnesium 2.10 mg/dL (1.7-2.3) 09/08/21 04:31 Total Bilirubin 0.40 mg/dL (0.1-1.2) 09/30/21 18:27 Bilirubin Cancelled 10/03/21 01:46 AST 39 units/L (5-40) 09/30/21 18:27 ALT 117 units/L (7-56) H 09/30/21 18:27 Alkaline Phosphatase 135 units/L (35-129) H 09/30/21 18:27 NT-Pro-B Natriuret Pep 524.1 pg/mL (0-450) H 08/31/21 19:32 Total Protein 6.9 g/dL (6.3-8.2) 09/30/21 18:27 Albumin 3.7 g/dL (3.9-5) L 01/17/22 18:27 Albumin/Globulin Ratio 1.2 % 09/30/21 18:27 HCG, Qual Negative (Negative) 08/31/21 19:32 Arterial Blood Glucose Cancelled 10/03/21 01:46 Arterial Blood Ionized Calcium Cancelled 10/03/21 01:46 Urine Color Yellow (Yellow) 09/10/21 07:00 Urine Turbidity Cloudy (Clear) 09/10/21 07:00 Urine pH 7.0 (5.0-7.0) 09/10/21 07:00 Ur Specific [place] 1.022 (1.003-1.030) 09/10/21 07:00 Urine Protein <15 mg/dl mg/dL (Negative) 09/10/21 07:00 Urine Glucose (UA) >=500 mg/dL (Negative) 09/10/21 07:00 Urine Ketones Neg mg/dL (Negative) 09/10/21 07:00 Urine Blood Sm (Negative) 09/10/21 07:00 Urine Nitrite Neg (Negative) 09/10/21 07:00 Urine Bilirubin Neg (Negative) 09/10/21 07:00 Urine Urobilinogen < 2.0 mg/dL (<2.0) 09/10/21 07:00 Ur Leukocyte Esterase Mod (Negative) 09/10/21 07:00 Urine WBC (Auto) 24.0 /HPF (0.0-6.0) H 09/10/21 07:00 Urine RBC (Auto) 17.0 /HPF (0.0-6.0) 09/10/21 07:00 U Epithel Cells (Auto) 3.0 /HPF (0-13.0) 09/10/21 07:00 Urine Bacteria (Auto) 2+ /HPF (Negative) 09/10/21 07:00 Calcium Oxalate Crystal Few 09/10/21 07:00 Urine Mucus 1+ /HPF 09/10/21 07:00 Ur Yeast w Hypha[place] Few /HPF 09/10/21 07:00 Urine Yeast (Budding) Few /HPF 09/10/21 07:00 Amos/IV: Voiding Method External Female Catheter Active Medications - Current Medications Current Medications: Generic Name Dose Route Start Last Admin Trade Name Freq PRN Reason Stop Dose Admin Acetaminophen 650 mg 09/01/21 01:25 09/30/21 13:20 Acetaminophen 325 Mg Tab PO 650 mg Q4H PRN Administration Pain MILD(1-3)/Fever >100.5/[place] Alprazolam 1 mg 09/01/21 01:38 09/29/21 22:42 Alprazolam 1 Mg Tab PO 1 mg BID PRN Administration Agitation Clonidine HCl 0.2 mg 09/21/21 16:00 09/28/21 18:01 Clonidine Tts 0.2 Mg/24 Hr Patch TD 0.2 mg Sa TUTU Administration Enoxaparin Sodium 50 mg 10/01/21 06:00 10/02/21 17:25 Enoxaparin 60 Mg/0.6 Ml Inj 1 mg/kg (50 mg) 50 mg SUB-Q Administration Q12H [facility] Protocol Famotidine 20 mg 10/03/21 10:00 Famotidine 20 Mg/2 Ml Inj IV BID TUTU Hydrocortisone Acetate 1 applic 09/21/21 15:00 Hydrocortisone 1% Cream 28.4gm TP Q8H PRN Skin Irritation Insulin Human Lispro 0 unit 09/01/21 07:30 10/02/21 23:30 Insulin Lispro 100 Unit/Ml SUB-Q Not Given ACHS [facility] Protocol Lorazepam 2 mg 10/03/21 03:37 Lorazepam 2 Mg/Ml Vial IV Q1H PRN Seizures Methylprednisolone Sodium Succinate 40 mg 10/02/21 10:00 10/02/21 09:51 Methylprednisolone Sod Succinate 40 Mg/1 Ml Inj IV 40 mg Q24HR TUTU Administration Nutrition/Malnutrition Assess - Dietary Evaluation Nutrition/Malnutrition Findings: Nutrition Notes Start: 09/01/21 12:25 Freq: Status: Active Protocol: Document 09/16/21 15:34 SAQIB (Rec: 09/16/21 15:38 [email or web address] [id number]) Nutrition Notes Initial or Follow up Brief Note Current Diet Consistent Carbohydrates Diet (since B 09/06). Height 5 ft 2 in Weight 54 kg [place] Body Weight (kg) 50.00 BMI 21.7 Weight change and time frame No body weight change reported . Weight Status Appropriate Subjective/Other Information RD consult on routine F/U on dietary tolerance. Pt's %PO intake of meals is Good (75-100%), according to ADL notes. Percent of energy/protein needs met: Prescribed Consistent Carbohydrates Diet provides for energy/protein needs (2, 061 Kcal/91 g) during LOS. Current % PO Good (75-100%) Nutrition Intervention Change Diet Order: Continue Consistent Carbohydrates Diet. Revisit per MD consult or patient Sign Off request: Additional Comments Continue monitoring food tolerance, %PO intake of meals and BM.
[2021-10-03] MEDS: methylPREDNISolone Sod Succinate 40 MG/1 ML INJ IV SCH (10:05)
[2021-10-03] MEDS: INSULIN LISPRO 100 UNIT/ML SUB-Q SCH ×2 (10:06→13:34)
--- NOTE | 2021-10-03 10:09 | Progress Note ---
Assessment and Plan - Patient Problems (1) Acute hypercapnic respiratory failure Current Visit: Yes Status: Acute Plan to address problem: Supplemental oxygen, supportive care, pulmonary toilet. Patient medically optimized at this time. Pt denies pain. Pt alert and cooperative and voices no new complaints. Family meeting conducted in patient room yesterday evening. Pt daughter and informed of prognosis and care plan. D/C planning in AM. Continue supportive care. (2) Debility Current Visit: Yes Status: Acute Plan to address problem: Supportive care, range of motion exercises as tolerated (3) Pulmonary fibrosis, postinflammatory Current Visit: Yes Status: Acute Plan to address problem: Supportive care, steroid therapy, continue medical management. (4) Coronavirus infection Current Visit: No Status: Acute Plan to address problem: Resolved, supportive care. (5) Advance care planning Current Visit: No Status: Acute Plan to address problem: Disease education conducted, care plan discussed, diagnosis discussed, prognosis discussed, patient is full code. Patient acknowledges understanding and agreement with care plan, +30 minutes. Family meeting conducted in patient room yesterday evening. Pt daughter and informed of prognosis and care plan. D/C planning in AM. Continue supportive care. History Interval history: 50 YO Female HD #32 with Sepsis, Acute on Chronic Respiratory Failure, Severe Pulmonary Fibrosis S/P coronavirus infection. Patient has poor prognosis. Patient pending discharge to home. Pt resting in bed, Pt is alert and cooperative and back to baseline level of cognition and function. Hospitalist Physical - Constitutional Vitals: Temp Pulse Resp BP Pulse Ox 99.9 F H 99 H 40 H 111/61 97 10/03/21 03:34 10/03/21 09:00 10/03/21 09:00 10/03/21 09:00 10/03/21 09:00 General appearance: Present: mild distress, cachectic, other (On 8 L oxygen, alert and awake) - EENT Eyes: Present: PERRL, EOM intact ENT: hearing intact - Neck Neck: Present: supple - Respiratory Respiratory: bilateral: diminished - Cardiovascular Rhythm: regular Heart Sounds: Present: S1 & S2 - Extremities Extremities: no ischemia Peripheral Pulses: within normal limits - Abdominal General gastrointestinal: soft, non-tender, non-distended - Integumentary Integumentary: Present: clear, dry - Psychiatric Psychiatric: cooperative - Neurologic Neurologic: CNII-XII intact Results - Labs CBC & Chem 7: 09/30/21 18:27 09/30/21 18:27 Labs: Laboratory Last Values WBC 11.5 K/mm3 (4.5-11.0) H 09/30/21 18:27 RBC 4.61 M/mm3 (3.65-5.03) 09/30/21 18:27 Hgb 13.4 gm/dl (10.1-14.3) 09/30/21 18: Hct 42.9 % (30.3-42.9) 09/30/21 18: MCV 93 fl (79-97) 09/30/21 18: MCH 29 pg (28-32) 09/30/21 18: MCHC 31 % (30-34) 09/30/21 18: RDW 18.9 % (13.2-15.2) H 09/30/21 18:27 Plt Count 237 K/mm3 (140-440) 09/30/21 18:27 Lymph % (Auto) 9.3 % (13.4-35.0) L 09/28/21 05:38 Norman % (Auto) 7.7 % (0.0-7.3) H 09/28/21 05:38 Eos % (Auto) 0.2 % (0.0-4.3) 09/28/21 05:38 Baso % (Auto) 0.3 % (0.0-1.8) 09/28/21 05:38 Lymph # (Auto) 0.6 K/mm3 (1.2-5.4) L 09/28/21 05:38 Norman # (Auto) 0.5 K/mm3 (0.0-0.8) 09/28/21 05:38 Eos # (Auto) 0.0 K/mm3 (0.0-0.4) 09/28/21 05:38 Baso # (Auto) 0.0 K/mm3 (0.0-0.1) 09/28/21 05:38 Add Manual Diff Complete 09/30/21 18:27 Total Counted 100 09/30/21 18:27 Seg Neutrophils % [employer] Administrator 09/30/21 18:27 Seg Neuts % (Manual) 99.0 % (40.0-70.0) H 09/30/21 18:27 Band Neutrophils % 0 % 09/30/21 18:27 Lymphocytes % (Manual) 0 % (13.4-35.0) L 09/30/21 18:27 Reactive Lymphs % (Man) 0 % 09/30/21 18:27 Monocytes % (Manual) 1.0 % (0.0-7.3) 09/30/21 18:27 Eosinophils % (Manual) 0 % (0.0-4.3) 09/30/21 18:27 Basophils % (Manual) 0 % (0.0-1.8) 09/30/21 18:27 Metamyelocytes % 0 % 09/30/21 18:27 Myelocytes % 0 % 09/30/21 18:27 Promyelocytes % 0 % 09/30/21 18:27 Blast Cells % 0 % 09/30/21 18:27 Nucleated RBC % Not Reportable 09/30/21 18: Seg Neutrophils # 4.9 K/mm3 (1.8-7.7) 09/28/21 05:38 Seg Neutrophils # Man 11.4 K/mm3 (1.8-7.7) H 09/30/21 18:27 Band Neutrophils # 0.0 K/mm3 09/30/21 18:27 Lymphocytes # (Manual) 0.0 K/mm3 (1.2-5.4) L 09/30/21 18:27 Abs React Lymphs (Man) 0.0 K/mm3 09/30/21 18:27 Monocytes # (Manual) 0.1 K/mm3 (0.0-0.8) 09/30/21 18:27 Eosinophils # (Manual) 0.0 K/mm3 (0.0-0.4) 09/30/21 18:27 Basophils # (Manual) 0.0 K/mm3 (0.0-0.1) 09/30/21 18:27 Metamyelocytes # 0.0 K/mm3 09/30/21 18:27 Myelocytes # 0.0 K/mm3 09/30/21 18:27 Promyelocytes # 0.0 K/mm3 09/30/21 18:27 Blast Cells # 0.0 K/mm3 09/30/21 18:27 WBC Morphology Not Reportable 09/30/21 18: Hypersegmented Neuts Not Reportable 09/30/21 18:27 Hyposegmented Neuts Not Reportable 09/30/21 18:27 Hypogranular Neuts Not Reportable 09/30/21 18:27 Smudge Cells Not Reportable 09/30/21 18:27 Toxic Granulation Not Reportable 09/30/21 18:27 Toxic Vacuolation Not Reportable 09/30/21 18:27 Dohle Bodies Not Reportable 09/30/21 18:27 Pelger-Huet Anomaly Not Reportable 09/30/21 18:27 Janelle Rods Not Reportable 09/30/21 18:27 Platelet Estimate Consistent w auto 09/30/21 18:27 Clumped Platelets Not Reportable 09/30/21 18:27 Plt Clumps, EDTA Not Reportable 09/30/21 18:27 Large Platelets Not Reportable 09/30/21 18:27 Giant Platelets Not Reportable 09/30/21 18:27 Platelet Satelliting Not Reportable 09/30/21 18:27 Plt Morphology Comment Not Reportable 09/30/21 18:27 RBC Morphology Not Reportable 09/30/21 18:27 Dimorphic RBCs Not Reportable 09/30/21 18:27 Polychromasia Not Reportable 09/30/21 18:27 Hypochromasia Not Reportable 09/30/21 18:27 Poikilocytosis Not Reportable 09/30/21 18:27 Anisocytosis 1+ 09/30/21 18:27 Microcytosis Few 09/30/21 18:27 Macrocytosis Not Reportable 09/30/21 18:27 Spherocytes Not Reportable 09/30/21 18:27 Pappenheimer Bodies Not Reportable 09/30/21 18:27 Sickle Cells Not Reportable 09/30/21 18:27 Target Cells Not Reportable 09/30/21 18:27 Tear Drop Cells Not Reportable 09/30/21 18:27 Ovalocytes Not Reportable 09/30/21 18:27 Stomatocytes 3+ 09/03/21 06:05 Helmet Cells Not Reportable 09/30/21 18:27 [place] Bodies Not Reportable 09/30/21 18:27 Rowena Rings Not Reportable 09/30/21 18:27 Girard Cells Not Reportable 09/30/21 18:27 Bite Cells Not Reportable 09/30/21 18:27 Crenated Cell Not Reportable 09/30/21 18:27 Elliptocytes Not Reportable 09/30/21 18:27 Acanthocytes (Spur) Not Reportable 09/30/21 18:27 Rouleaux Not Reportable 09/30/21 18:27 Hemoglobin C Crystals Not Reportable 09/30/21 18:27 Schistocytes Rare 09/30/21 18:27 Malaria parasites Not Reportable 09/30/21 18:27 Justin Bodies Not Reportable 09/30/21 18:27 Hem Pathologist Commnt No 09/30/21 18:27 D-Dimer 710.59 ng/mlDDU (0-234) H 08/31/21 19:32 ABG pH 7.144 pH Units (7.350-7.450) L* 10/03/21 09:10 POC ABG pCO2 Cancelled 10/03/21 01:46 ABG pCO2 140.3 mm Hg 10/03/21 09:10 POC ABG pO2 Cancelled 10/03/21 01:46 ABG pO2 67.1 mm Hg (80.0-90.0) L 10/03/21 09:10 POC ABG HCO3 Cancelled 10/03/21 01:46 ABG HCO3 47.1 mmol/L (20.0-26.0) H 10/03/21 09:10 ABG O2 Saturation 92.0 % (95.0-99.0) L 10/03/21 09:10 ABG O2 Content 15.8 (0.0-44) 10/03/21 09:10 POC ABG Base Excess Cancelled 10/03/21 01:46 ABG Base Excess 13.0 mmol/L (-2.0-3.0) H 10/03/21 09:10 ABG Hemoglobin 12.5 gm/dl (12.0-16.0) 10/03/21 09:10 ABG Oxyhemoglobin Cancelled 10/03/21 01:46 ABG Carboxyhemoglobin 1.4 % (0.0-5.0) 10/03/21 09:10 ABG Methemoglobin 0.8 % (0.0-1.5) 10/03/21 09:10 ABG Sodium Cancelled 10/03/21 01:46 ABG Potassium Cancelled 10/03/21 01:46 ABG Chloride Cancelled 10/03/21 01:46 ABG Glucose Cancelled 10/03/21 01:46 ABG Lactate Cancelled 10/03/21 01:46 Oxyhemoglobin 90.0 % (95.0-99.0) L 10/03/21 09:10 Carboxyhemoglobin Cancelled 10/03/21 01:46 FiO2 100 % 10/03/21 09:10 FiO2 % Cancelled 10/03/21 01:46 Sodium 137 mmol/L (137-145) 09/30/21 18:27 Potassium 4.9 mmol/L (3.6-5.0) 09/30/21 18:27 Chloride 89.0 mmol/L (98-107) L 09/30/21 18:27 Carbon Dioxide 36 mmol/L (22-30) H 09/30/21 18:27 Anion Gap 17 mmol/L 09/30/21 18:27 BUN 19 mg/dL (7-17) H 09/30/21 18:27 Creatinine < 0.2 mg/dL (0.6-1.2) L 09/30/21 18:27 Estimated GFR > 60 ml/min 09/30/21 18:27 BUN/Creatinine Ratio 95 % 09/30/21 18:27 Glucose 430 mg/dL (65-100) H 09/30/21 18:27 POC Glucose 223 mg/dL (70-105) H 10/03/21 09:01 Calcium 9.4 mg/dL (8.4-10.2) 09/30/21 18:27 Magnesium 2.10 mg/dL (1.7-2.3) 09/08/21 04:31 Total Bilirubin 0.40 mg/dL (0.1-1.2) 09/30/21 18:27 Bilirubin Cancelled 10/03/21 01:46 AST 39 units/L (5-40) 09/30/21 18:27 ALT 117 units/L (7-56) H 09/30/21 18:27 Alkaline Phosphatase 135 units/L (35-129) H 09/30/21 18:27 NT-Pro-B Natriuret Pep 524.1 pg/mL (0-450) H 08/31/21 19:32 Total Protein 6.9 g/dL (6.3-8.2) 09/30/21 18:27 Albumin 3.7 g/dL (3.9-5) L 09/30/21 18:27 Albumin/Globulin Ratio 1.2 % 09/30/21 18:27 HCG, Qual Negative (Negative) 08/31/21 19:32 Arterial Blood Glucose Cancelled 10/03/21 01:46 Arterial Blood Ionized Calcium Cancelled 10/03/21 01:46 Urine Color Yellow (Yellow) 09/10/21 07:00 Urine Turbidity Cloudy (Clear) 09/10/21 07:00 Urine pH 7.0 (5.0-7.0) 09/10/21 07:00 Ur Specific [place] 1.022 (1.003-1.030) 09/10/21 07:00 Urine Protein <15 mg/dl mg/dL (Negative) 09/10/21 07:00 Urine Glucose (UA) >=500 mg/dL (Negative) 09/10/21 07:00 Urine Ketones Neg mg/dL (Negative) 09/10/21 07:00 Urine Blood Sm (Negative) 09/10/21 07:00 Urine Nitrite Neg (Negative) 09/10/21 07:00 Urine Bilirubin Neg (Negative) 09/10/21 07:00 Urine Urobilinogen < 2.0 mg/dL (<2.0) 09/10/21 07:00 Ur Leukocyte Esterase Mod (Negative) 09/10/21 07:00 Urine WBC (Auto) 24.0 /HPF (0.0-6.0) H 09/10/21 07:00 Urine RBC (Auto) 17.0 /HPF (0.0-6.0) 09/10/21 07:00 U Epithel Cells (Auto) 3.0 /HPF (0-13.0) 09/10/21 07:00 Urine Bacteria (Auto) 2+ /HPF (Negative) 09/10/21 07:00 Calcium Oxalate Crystal Few 09/10/21 07:00 Urine Mucus 1+ /HPF 09/10/21 07:00 Ur Yeast w Hyphae Few /HPF 09/10/21 07:00 Urine Yeast (Budding) Few /HPF 09/10/21 07:00 Amos/IV: Voiding Method External Female Catheter Active Medications - Current Medications Current Medications: Generic Name Dose Route Start Last Admin Trade Name Freq PRN Reason Stop Dose Admin Acetaminophen 650 mg 09/01/21 01:25 09/30/21 13:20 Acetaminophen 325 Mg Tab PO 650 mg Q4H PRN Administration Pain MILD(1-3)/Fever >100.5/[place] Alprazolam 1 mg 09/01/21 01:38 09/29/21 22:42 Alprazolam 1 Mg Tab PO 1 mg BID PRN Administration Agitation Clonidine HCl 0.2 mg 09/21/21 16:00 09/28/21 18:01 Clonidine Tts 0.2 Mg/24 Hr Patch TD 0.2 mg Sa TUTU Administration Enoxaparin Sodium 50 mg 10/01/21 06:00 10/02/21 17:25 Enoxaparin 60 Mg/0.6 Ml Inj 1 mg/kg (50 mg) 50 mg SUB-Q Administration Q12H [facility] Protocol Famotidine 20 mg 10/03/21 10:00 Famotidine 20 Mg/2 Ml Inj IV BID TUTU Hydrocortisone Acetate 1 applic 09/21/21 15:00 Hydrocortisone 1% Cream 28.4gm TP Q8H PRN Skin Irritation Insulin Human Lispro 0 unit 09/01/21 07:30 10/02/21 23:30 Insulin Lispro 100 Unit/Ml SUB-Q Not Given ACHS [facility] Protocol Lorazepam 2 mg 10/03/21 03:37 Lorazepam 2 Mg/Ml Vial IV Q1H PRN Seizures Methylprednisolone Sodium Succinate 40 mg 10/02/21 10:00 10/02/21 09:51 Methylprednisolone Sod Succinate 40 Mg/1 Ml Inj IV 40 mg Q24HR TUTU Administration Nutrition/Malnutrition Assess - Dietary Evaluation Nutrition/Malnutrition Findings: Nutrition Notes Start: 09/01/21 12:25 Freq: Status: Active Protocol: Document 09/16/21 15:34 SAQIB (Rec: 09/16/21 15:38 SAQIB [id number]) Nutrition Notes Initial or Follow up Brief Note Current Diet Consistent Carbohydrates Diet (since B 09/06). Height 5 ft 2 in Weight 54 kg [place] Body Weight (kg) 50.00 BMI 21.7 Weight change and time frame No body weight change reported . Weight Status Appropriate Subjective/Other Information RD consult on routine F/U on dietary tolerance. Pt's %PO intake of meals is Good (75-100%), according to ADL notes. Percent of energy/protein needs met: Prescribed Consistent Carbohydrates Diet provides for energy/protein needs (2, 061 Kcal/91 g) during LOS. Current % PO Good (75-100%) Nutrition Intervention Change Diet Order: Continue Consistent Carbohydrates Diet. Revisit per MD consult or patient Sign Off request: Additional Comments Continue monitoring food tolerance, %PO intake of meals and BM.
[2021-10-03] MEDS: ENOXAPARIN 60 MG/0.6 ML INJ SUB-Q SCH (10:10)
--- NOTE | 2021-10-03 10:43 | Consultation ---
History of Present Illness Consult date: 10/03/21 Reason for Consult: Respiratory failure,agonal breathing,Post Covid-19 History of present illness: Asked by Dr. Hussein not to see pt. since she had no neurological issue please feel free to contact me as needed Past History Past Medical History: diabetes, hyperlipidemia, seizures, other ( COVID-19 positive test (U07.1, COVID-19) with Acute Pneumonia (J12.89, Other viral pneu monia)(If respiratory failure or sepsis present, add as separate assessment) ) Medications and Allergies Allergies Allergy/AdvReac Type Severity Reaction Status Date / Time No Known Allergies Allergy Verified 09/20/21 13:59 Home Medications Medication Instructions Recorded Confirmed Last Taken Type Cholecalciferol Vit D3 [Vitamin D3 1,000 unit PO QDAY #14 tablet 08/28/21 09/02/21 08/29/21 08:00 Rx 1,000 UNIT TAB] Insulin Glargine [Lantus VIAL] 10 units SUB-Q DAILY 30 Days #2 08/28/21 09/02/21 08/29/21 08:00 Rx vial predniSONE 6 tab PO QDAY #104 tab 08/28/21 09/02/21 08/29/21 07:00 Rx ALPRAZolam [Xanax TAB] 1 mg PO BID PRN #7 tablet 08/31/21 09/02/21 Unknown Rx Melatonin [Melatonin 5MG TAB] 1 tab PO QHS PRN #10 tablet 08/31/21 09/03/21 Unknown Rx predniSONE [Deltasone] 5 mg PO .TAPER #48 tab 09/30/21 Unknown Rx LORazepam [Ativan] 1 mg PO BID #60 tab 10/01/21 Unknown Rx predniSONE 10 mg PO .TAPER #48 tab 10/01/21 Unknown Rx Active Meds: Active Medications Acetaminophen (Acetaminophen 325 Mg Tab) 650 mg PO Q4H PRN PRN Reason: Pain MILD(1-3)/Fever >100.5/[place] Last Admin: 09/30/21 13:20 Dose: 650 mg Alprazolam (Alprazolam 1 Mg Tab) 1 mg PO BID PRN PRN Reason: Agitation Last Admin: 09/29/21 22:42 Dose: 1 mg Clonidine HCl (Clonidine Tts 0.2 Mg/24 Hr Patch) 0.2 mg TD Sa TUTU Last Admin: 09/28/21 18:01 Dose: 0.2 mg Enoxaparin Sodium (Enoxaparin 60 Mg/0.6 Ml Inj) 50 mg 1 mg/kg (50 mg) SUB-Q Q12H [facility]; Protocol Last Admin: 10/03/21 10:10 Dose: 50 mg Famotidine (Famotidine 20 Mg/2 Ml Inj) 20 mg IV BID [facility] Last Admin: 10/03/21 10:06 Dose: 20 mg Hydrocortisone Acetate (Hydrocortisone 1% Cream 28.4gm) 1 applic TP Q8H PRN PRN Reason: Skin Irritation Levetiracetam 1,000 mg/ (Dextrose) 110 mls @ 400 mls/hr IV Q12HR [facility] Insulin Human Lispro (Insulin Lispro 100 Unit/Ml) 0 unit SUB-Q ACHS [facility]; Protocol Last Admin: 10/03/21 10:06 Dose: 3 unit Lorazepam (Lorazepam 2 Mg/Ml Vial) 2 mg IV Q1H PRN PRN Reason: Seizures Methylprednisolone Sodium Succinate (Methylprednisolone Sod Succinate 40 Mg/1 Ml Inj) 40 mg IV Q24HR [facility] Last Admin: 10/03/21 10:05 Dose: 40 mg Physical Examination - Vital Signs Vital Signs: Vital Signs Pulse Ox 100 08/31/21 19:35 Results - Laboratory Findings CBC and BMP: 09/30/21 18:27 09/30/21 18:27 Abnormal Lab Findings: Abnormal Labs 08/31/21 08/31/21 08/31/21 19:32 19:32 19:32 WBC Hct RDW 16.4 H Lymph % (Auto) [place] % (Auto) 9.0 H Lymph # (Auto) [place] # (Auto) 1.0 H Seg Neutrophils % 76.2 H Seg Neuts % (Manual) Lymphocytes % (Manual) Seg Neutrophils # 8.3 H Seg Neutrophils # Man Lymphocytes # (Manual) D-Dimer 710.59 H ABG pH ABG pO2 ABG HCO3 ABG O2 Saturation ABG Base Excess Oxyhemoglobin Sodium Potassium Chloride 92.7 L Carbon Dioxide 36 H BUN Creatinine 0.4 L D Glucose 249 H POC Glucose Calcium ALT Alkaline Phosphatase NT-Pro-B Natriuret Pep Total Protein Albumin Urine WBC (Auto) 08/31/21 08/31/21 09/01/21 19:32 21:05 09:24 WBC Hct RDW Lymph % (Auto) [place] % (Auto) Lymph # (Auto) [place] # (Auto) Seg Neutrophils % Seg Neuts % (Manual) Lymphocytes % (Manual) Seg Neutrophils # Seg Neutrophils # Man Lymphocytes # (Manual) D-Dimer ABG pH 7.244 L ABG pO2 307.7 H ABG HCO3 47.9 H ABG O2 Saturation 99.4 H ABG Base Excess 16.0 H Oxyhemoglobin Sodium Potassium Chloride Carbon Dioxide BUN Creatinine Glucose POC Glucose 106 H Calcium ALT Alkaline Phosphatase NT-Pro-B Natriuret Pep 524.1 H Total Protein Albumin Urine WBC (Auto) 09/01/21 09/01/21 09/01/21 13:39 16:22 23:56 WBC Hct RDW Lymph % (Auto) [place] % (Auto) Lymph # (Auto) [place] # (Auto) Seg Neutrophils % Seg Neuts % (Manual) Lymphocytes % (Manual) Seg Neutrophils # Seg Neutrophils # Man Lymphocytes # (Manual) D-Dimer ABG pH 7.240 L ABG pO2 198.0 H ABG HCO3 46.6 H ABG O2 Saturation ABG Base Excess 14.8 H Oxyhemoglobin Sodium Potassium Chloride Carbon Dioxide BUN Creatinine Glucose POC Glucose 154 H 188 H Calcium ALT Alkaline Phosphatase NT-Pro-B Natriuret Pep Total Protein Albumin Urine WBC (Auto) 09/02/21 09/02/21 09/02/21 01:49 07:22 07:22 WBC Hct RDW 16.4 H Lymph % (Auto) [place] % (Auto) Lymph # (Auto) [place] # (Auto) Seg Neutrophils % Seg Neuts % (Manual) 97.0 H Lymphocytes % (Manual) 2.0 L Seg Neutrophils # Seg Neutrophils # Man Lymphocytes # (Manual) 0.1 L D-Dimer ABG pH ABG pO2 ABG HCO3 ABG O2 Saturation ABG Base Excess Oxyhemoglobin Sodium Potassium Chloride 82.7 L Carbon Dioxide 41 H* BUN 21 H Creatinine 0.3 L Glucose 198 H POC Glucose 132 H Calcium ALT Alkaline Phosphatase NT-Pro-B Natriuret Pep Total Protein Albumin Urine WBC (Auto) 09/02/21 09/02/21 09/02/21 08:29 11:27 16:59 WBC Hct RDW Lymph % (Auto) [place] % (Auto) Lymph # (Auto) [place] # (Auto) Seg Neutrophils % Seg Neuts % (Manual) Lymphocytes % (Manual) Seg Neutrophils # Seg Neutrophils # Man Lymphocytes # (Manual) D-Dimer ABG pH ABG pO2 ABG HCO3 ABG O2 Saturation ABG Base Excess Oxyhemoglobin Sodium Potassium Chloride Carbon Dioxide BUN Creatinine Glucose POC Glucose 201 H 232 H 118 H Calcium ALT Alkaline Phosphatase NT-Pro-B Natriuret Pep Total Protein Albumin Urine WBC (Auto) 09/02/21 09/03/21 09/03/21 22:08 06:05 06:05 WBC Hct RDW 16.5 H Lymph % (Auto) [place] % (Auto) Lymph # (Auto) [place] # (Auto) Seg Neutrophils % Seg Neuts % (Manual) 94.0 H Lymphocytes % (Manual) 3.0 L Seg Neutrophils # Seg Neutrophils # Man Lymphocytes # (Manual) 0.2 L D-Dimer ABG pH ABG pO2 ABG HCO3 ABG O2 Saturation ABG Base Excess Oxyhemoglobin Sodium Potassium Chloride 79.3 L Carbon Dioxide 52 H* D BUN 27 H Creatinine 0.2 L Glucose 228 H POC Glucose 241 H Calcium 10.4 H ALT 71 H Alkaline Phosphatase NT-Pro-B Natriuret Pep Total Protein Albumin 3.8 L Urine WBC (Auto) 09/03/21 09/03/21 09/03/21 07:53 11:37 15:52 WBC Hct RDW Lymph % (Auto) [place] % (Auto) Lymph # (Auto) [place] # (Auto) Seg Neutrophils % Seg Neuts % (Manual) Lymphocytes % (Manual) Seg Neutrophils # Seg Neutrophils # Man Lymphocytes # (Manual) D-Dimer ABG pH ABG pO2 ABG HCO3 ABG O2 Saturation ABG Base Excess Oxyhemoglobin Sodium Potassium Chloride Carbon Dioxide BUN Creatinine Glucose POC Glucose 241 H 202 H 284 H Calcium ALT Alkaline Phosphatase NT-Pro-B Natriuret Pep Total Protein Albumin Urine WBC (Auto) 09/03/21 09/04/21 09/04/21 22:07 08:33 11:16 WBC Hct RDW Lymph % (Auto) [place] % (Auto) Lymph # (Auto) [place] # (Auto) Seg Neutrophils % Seg Neuts % (Manual) Lymphocytes % (Manual) Seg Neutrophils # Seg Neutrophils # Man Lymphocytes # (Manual) D-Dimer ABG pH ABG pO2 ABG HCO3 ABG O2 Saturation ABG Base Excess Oxyhemoglobin Sodium Potassium Chloride Carbon Dioxide BUN Creatinine Glucose POC Glucose 311 H 232 H 356 H Calcium ALT Alkaline Phosphatase NT-Pro-B Natriuret Pep Total Protein Albumin Urine WBC (Auto) 09/04/21 09/04/21 09/05/21 17:10 23:05 08:08 WBC Hct RDW Lymph % (Auto) [place] % (Auto) Lymph # (Auto) [place] # (Auto) Seg Neutrophils % Seg Neuts % (Manual) Lymphocytes % (Manual) Seg Neutrophils # Seg Neutrophils # Man Lymphocytes # (Manual) D-Dimer ABG pH ABG pO2 ABG HCO3 ABG O2 Saturation ABG Base Excess Oxyhemoglobin Sodium Potassium Chloride Carbon Dioxide BUN Creatinine Glucose POC Glucose 328 H 150 H 342 H Calcium ALT Alkaline Phosphatase NT-Pro-B Natriuret Pep Total Protein Albumin Urine WBC (Auto) 09/05/21 09/05/21 09/05/21 11:04 13:23 13:23 WBC Hct RDW 17.1 H Lymph % (Auto) [place] % (Auto) Lymph # (Auto) [place] # (Auto) Seg Neutrophils % Seg Neuts % (Manual) Lymphocytes % (Manual) Seg Neutrophils # Seg Neutrophils # Man Lymphocytes # (Manual) D-Dimer ABG pH ABG pO2 ABG HCO3 ABG O2 Saturation ABG Base Excess Oxyhemoglobin Sodium Potassium 2.6 L* D Chloride 74.4 L Carbon Dioxide 46 H* BUN Creatinine 0.3 L Glucose 389 H POC Glucose 395 H Calcium ALT Alkaline Phosphatase NT-Pro-B Natriuret Pep Total Protein Albumin Urine WBC (Auto) 09/05/21 09/05/21 09/06/21 16:22 21:09 08:02 WBC Hct RDW Lymph % (Auto) [place] % (Auto) Lymph # (Auto) [place] # (Auto) Seg Neutrophils % Seg Neuts % (Manual) Lymphocytes % (Manual) Seg Neutrophils # Seg Neutrophils # Man Lymphocytes # (Manual) D-Dimer ABG pH ABG pO2 ABG HCO3 ABG O2 Saturation ABG Base Excess Oxyhemoglobin Sodium Potassium Chloride Carbon Dioxide BUN Creatinine Glucose POC Glucose 195 H 243 H 119 H Calcium ALT Alkaline Phosphatase NT-Pro-B Natriuret Pep Total Protein Albumin Urine WBC (Auto) 09/06/21 09/06/21 09/06/21 11:00 11:19 16:06 WBC Hct RDW Lymph % (Auto) [place] % (Auto) Lymph # (Auto) [place] # (Auto) Seg Neutrophils % Seg Neuts % (Manual) Lymphocytes % (Manual) Seg Neutrophils # Seg Neutrophils # Man Lymphocytes # (Manual) D-Dimer ABG pH ABG pO2 ABG HCO3 ABG O2 Saturation ABG Base Excess Oxyhemoglobin Sodium 136 L Potassium Chloride 78.3 L Carbon Dioxide 47 H* BUN Creatinine 0.3 L Glucose 354 H POC Glucose 309 H 381 H Calcium ALT Alkaline Phosphatase NT-Pro-B Natriuret Pep Total Protein Albumin Urine WBC (Auto) 09/06/21 09/07/21 09/07/21 22:25 11:11 16:50 WBC Hct RDW Lymph % (Auto) [place] % (Auto) Lymph # (Auto) [place] # (Auto) Seg Neutrophils % Seg Neuts % (Manual) Lymphocytes % (Manual) Seg Neutrophils # Seg Neutrophils # Man Lymphocytes # (Manual) D-Dimer ABG pH ABG pO2 ABG HCO3 ABG O2 Saturation ABG Base Excess Oxyhemoglobin Sodium Potassium Chloride Carbon Dioxide BUN Creatinine Glucose POC Glucose 217 H 442 H 222 H Calcium ALT Alkaline Phosphatase NT-Pro-B Natriuret Pep Total Protein Albumin Urine WBC (Auto) 09/07/21 09/08/21 09/08/21 21:52 04:31 04:31 WBC Hct 44.9 H RDW 17.2 H Lymph % (Auto) 12.3 L [place] % (Auto) Lymph # (Auto) 1.0 L [place] # (Auto) Seg Neutrophils % 79.1 H Seg Neuts % (Manual) Lymphocytes % (Manual) Seg Neutrophils # Seg Neutrophils # Man Lymphocytes # (Manual) D-Dimer ABG pH ABG pO2 ABG HCO3 ABG O2 Saturation ABG Base Excess Oxyhemoglobin Sodium Potassium 2.8 L* D Chloride 87.6 L Carbon Dioxide 45 H* BUN Creatinine 0.2 L Glucose 46 L POC Glucose 360 H Calcium ALT Alkaline Phosphatase NT-Pro-B Natriuret Pep Total Protein Albumin Urine WBC (Auto) 09/08/21 09/08/21 09/08/21 05:25 05:53 11:50 WBC Hct RDW Lymph % (Auto) [place] % (Auto) Lymph # (Auto) [place] # (Auto) Seg Neutrophils % Seg Neuts % (Manual) Lymphocytes % (Manual) Seg Neutrophils # Seg Neutrophils # Man Lymphocytes # (Manual) D-Dimer ABG pH ABG pO2 ABG HCO3 ABG O2 Saturation ABG Base Excess Oxyhemoglobin Sodium Potassium Chloride Carbon Dioxide BUN Creatinine Glucose POC Glucose 39 L 64 L 280 H Calcium ALT Alkaline Phosphatase NT-Pro-B Natriuret Pep Total Protein Albumin Urine WBC (Auto) 09/08/21 09/08/21 09/09/21 16:20 21:32 07:20 WBC Hct RDW Lymph % (Auto) [place] % (Auto) Lymph # (Auto) [place] # (Auto) Seg Neutrophils % Seg Neuts % (Manual) Lymphocytes % (Manual) Seg Neutrophils # Seg Neutrophils # Man Lymphocytes # (Manual) D-Dimer ABG pH ABG pO2 ABG HCO3 ABG O2 Saturation ABG Base Excess Oxyhemoglobin Sodium Potassium Chloride Carbon Dioxide BUN Creatinine Glucose POC Glucose 256 H 203 H 194 H Calcium ALT Alkaline Phosphatase NT-Pro-B Natriuret Pep Total Protein Albumin Urine WBC (Auto) 09/09/21 09/09/21 09/09/21 07:50 11:13 16:20 WBC Hct RDW Lymph % (Auto) [place] % (Auto) Lymph # (Auto) [place] # (Auto) Seg Neutrophils % Seg Neuts % (Manual) Lymphocytes % (Manual) Seg Neutrophils # Seg Neutrophils # Man Lymphocytes # (Manual) D-Dimer ABG pH ABG pO2 ABG HCO3 ABG O2 Saturation ABG Base Excess Oxyhemoglobin Sodium Potassium Chloride 88.8 L Carbon Dioxide 39 H BUN Creatinine < 0.2 L Glucose 197 H POC Glucose 258 H 231 H Calcium ALT Alkaline Phosphatase NT-Pro-B Natriuret Pep Total Protein Albumin Urine WBC (Auto) 09/09/21 09/10/21 09/10/21 22:17 07:00 08:02 WBC Hct RDW Lymph % (Auto) [place] % (Auto) Lymph # (Auto) [place] # (Auto) Seg Neutrophils % Seg Neuts % (Manual) Lymphocytes % (Manual) Seg Neutrophils # Seg Neutrophils # Man Lymphocytes # (Manual) D-Dimer ABG pH ABG pO2 ABG HCO3 ABG O2 Saturation ABG Base Excess Oxyhemoglobin Sodium Potassium Chloride Carbon Dioxide BUN Creatinine Glucose POC Glucose 222 H 213 H Calcium ALT Alkaline Phosphatase NT-Pro-B Natriuret Pep Total Protein Albumin Urine WBC (Auto) 24.0 H 09/10/21 09/10/21 09/10/21 11:22 15:49 22:08 WBC Hct RDW Lymph % (Auto) [place] % (Auto) Lymph # (Auto) [place] # (Auto) Seg Neutrophils % Seg Neuts % (Manual) Lymphocytes % (Manual) Seg Neutrophils # Seg Neutrophils # Man Lymphocytes # (Manual) D-Dimer ABG pH ABG pO2 ABG HCO3 ABG O2 Saturation ABG Base Excess Oxyhemoglobin Sodium Potassium Chloride Carbon Dioxide BUN Creatinine Glucose POC Glucose 241 H 201 H 212 H Calcium ALT Alkaline Phosphatase NT-Pro-B Natriuret Pep Total Protein Albumin Urine WBC (Auto) 09/11/21 09/11/21 09/11/21 08:01 11:21 16:41 WBC Hct RDW Lymph % (Auto) [place] % (Auto) Lymph # (Auto) [place] # (Auto) Seg Neutrophils % Seg Neuts % (Manual) Lymphocytes % (Manual) Seg Neutrophils # Seg Neutrophils # Man Lymphocytes # (Manual) D-Dimer ABG pH ABG pO2 ABG HCO3 ABG O2 Saturation ABG Base Excess Oxyhemoglobin Sodium Potassium Chloride Carbon Dioxide BUN Creatinine Glucose POC Glucose 207 H 265 H 234 H Calcium ALT Alkaline Phosphatase NT-Pro-B Natriuret Pep Total Protein Albumin Urine WBC (Auto) 09/11/21 09/12/21 09/12/21 22:09 08:38 11:28 WBC Hct RDW Lymph % (Auto) [place] % (Auto) Lymph # (Auto) [place] # (Auto) Seg Neutrophils % Seg Neuts % (Manual) Lymphocytes % (Manual) Seg Neutrophils # Seg Neutrophils # Man Lymphocytes # (Manual) D-Dimer ABG pH ABG pO2 ABG HCO3 ABG O2 Saturation ABG Base Excess Oxyhemoglobin Sodium Potassium Chloride Carbon Dioxide BUN Creatinine Glucose POC Glucose 293 H 222 H 326 H Calcium ALT Alkaline Phosphatase NT-Pro-B Natriuret Pep Total Protein Albumin Urine WBC (Auto) 09/12/21 09/12/21 09/13/21 16:25 21:45 07:41 WBC Hct RDW Lymph % (Auto) [place] % (Auto) Lymph # (Auto) [place] # (Auto) Seg Neutrophils % Seg Neuts % (Manual) Lymphocytes % (Manual) Seg Neutrophils # Seg Neutrophils # Man Lymphocytes # (Manual) D-Dimer ABG pH ABG pO2 ABG HCO3 ABG O2 Saturation ABG Base Excess Oxyhemoglobin Sodium Potassium Chloride Carbon Dioxide BUN Creatinine Glucose POC Glucose 130 H 191 H 165 H Calcium ALT Alkaline Phosphatase NT-Pro-B Natriuret Pep Total Protein Albumin Urine WBC (Auto) 09/13/21 09/13/21 09/13/21 11:12 16:59 22:01 WBC Hct RDW Lymph % (Auto) [place] % (Auto) Lymph # (Auto) [place] # (Auto) Seg Neutrophils % Seg Neuts % (Manual) Lymphocytes % (Manual) Seg Neutrophils # Seg Neutrophils # Man Lymphocytes # (Manual) D-Dimer ABG pH ABG pO2 ABG HCO3 ABG O2 Saturation ABG Base Excess Oxyhemoglobin Sodium Potassium Chloride Carbon Dioxide BUN Creatinine Glucose POC Glucose 263 H 162 H 276 H Calcium ALT Alkaline Phosphatase NT-Pro-B Natriuret Pep Total Protein Albumin Urine WBC (Auto) 09/14/21 09/14/21 09/14/21 08:12 12:28 16:30 WBC Hct RDW Lymph % (Auto) [place] % (Auto) Lymph # (Auto) [place] # (Auto) Seg Neutrophils % Seg Neuts % (Manual) Lymphocytes % (Manual) Seg Neutrophils # Seg Neutrophils # Man Lymphocytes # (Manual) D-Dimer ABG pH ABG pO2 ABG HCO3 ABG O2 Saturation ABG Base Excess Oxyhemoglobin Sodium Potassium Chloride Carbon Dioxide BUN Creatinine Glucose POC Glucose 179 H 212 H 227 H Calcium ALT Alkaline Phosphatase NT-Pro-B Natriuret Pep Total Protein Albumin Urine WBC (Auto) 09/14/21 09/15/21 09/15/21 22:56 12:12 18:05 WBC Hct RDW Lymph % (Auto) [place] % (Auto) Lymph # (Auto) [place] # (Auto) Seg Neutrophils % Seg Neuts % (Manual) Lymphocytes % (Manual) Seg Neutrophils # Seg Neutrophils # Man Lymphocytes # (Manual) D-Dimer ABG pH ABG pO2 ABG HCO3 ABG O2 Saturation ABG Base Excess Oxyhemoglobin Sodium Potassium Chloride Carbon Dioxide BUN Creatinine Glucose POC Glucose 275 H 297 H 247 H Calcium ALT Alkaline Phosphatase NT-Pro-B Natriuret Pep Total Protein Albumin Urine WBC (Auto) 09/15/21 09/16/21 09/16/21 22:21 07:51 11:22 WBC Hct RDW Lymph % (Auto) [place] % (Auto) Lymph # (Auto) [place] # (Auto) Seg Neutrophils % Seg Neuts % (Manual) Lymphocytes % (Manual) Seg Neutrophils # Seg Neutrophils # Man Lymphocytes # (Manual) D-Dimer ABG pH ABG pO2 ABG HCO3 ABG O2 Saturation ABG Base Excess Oxyhemoglobin Sodium Potassium Chloride Carbon Dioxide BUN Creatinine Glucose POC Glucose 309 H 196 H 278 H Calcium ALT Alkaline Phosphatase NT-Pro-B Natriuret Pep Total Protein Albumin Urine WBC (Auto) 09/16/21 09/16/21 09/17/21 16:10 21:56 07:45 WBC Hct RDW Lymph % (Auto) [place] % (Auto) Lymph # (Auto) [place] # (Auto) Seg Neutrophils % Seg Neuts % (Manual) Lymphocytes % (Manual) Seg Neutrophils # Seg Neutrophils # Man Lymphocytes # (Manual) D-Dimer ABG pH ABG pO2 ABG HCO3 ABG O2 Saturation ABG Base Excess Oxyhemoglobin Sodium Potassium Chloride Carbon Dioxide BUN Creatinine Glucose POC Glucose 264 H 246 H 174 H Calcium ALT Alkaline Phosphatase NT-Pro-B Natriuret Pep Total Protein Albumin Urine WBC (Auto) 09/17/21 09/17/21 09/17/21 11:25 15:43 21:19 WBC Hct RDW Lymph % (Auto) [place] % (Auto) Lymph # (Auto) [place] # (Auto) Seg Neutrophils % Seg Neuts % (Manual) Lymphocytes % (Manual) Seg Neutrophils # Seg Neutrophils # Man Lymphocytes # (Manual) D-Dimer ABG pH ABG pO2 ABG HCO3 ABG O2 Saturation ABG Base Excess Oxyhemoglobin Sodium Potassium Chloride Carbon Dioxide BUN Creatinine Glucose POC Glucose 275 H 242 H 255 H Calcium ALT Alkaline Phosphatase NT-Pro-B Natriuret Pep Total Protein Albumin Urine WBC (Auto) 09/18/21 09/18/21 09/18/21 08:00 11:50 17:30 WBC Hct RDW Lymph % (Auto) [place] % (Auto) Lymph # (Auto) [place] # (Auto) Seg Neutrophils % Seg Neuts % (Manual) Lymphocytes % (Manual) Seg Neutrophils # Seg Neutrophils # Man Lymphocytes # (Manual) D-Dimer ABG pH ABG pO2 ABG HCO3 ABG O2 Saturation ABG Base Excess Oxyhemoglobin Sodium Potassium Chloride Carbon Dioxide BUN Creatinine Glucose POC Glucose 170 H 244 H 218 H Calcium ALT Alkaline Phosphatase NT-Pro-B Natriuret Pep Total Protein Albumin Urine WBC (Auto) 09/18/21 09/19/21 09/19/21 22:32 12:20 14:00 WBC Hct RDW 18.6 H Lymph % (Auto) [place] % (Auto) Lymph # (Auto) [place] # (Auto) Seg Neutrophils % Seg Neuts % (Manual) Lymphocytes % (Manual) Seg Neutrophils # Seg Neutrophils # Man Lymphocytes # (Manual) D-Dimer ABG pH ABG pO2 ABG HCO3 ABG O2 Saturation ABG Base Excess Oxyhemoglobin Sodium Potassium Chloride Carbon Dioxide BUN Creatinine Glucose POC Glucose 295 H 220 H Calcium ALT Alkaline Phosphatase NT-Pro-B Natriuret Pep Total Protein Albumin Urine WBC (Auto) 09/19/21 09/19/21 09/19/21 14:00 18:32 21:19 WBC Hct RDW Lymph % (Auto) [place] % (Auto) Lymph # (Auto) [place] # (Auto) Seg Neutrophils % Seg Neuts % (Manual) Lymphocytes % (Manual) Seg Neutrophils # Seg Neutrophils # Man Lymphocytes # (Manual) D-Dimer ABG pH ABG pO2 ABG HCO3 ABG O2 Saturation ABG Base Excess Oxyhemoglobin Sodium 136 L Potassium 5.7 H Chloride 92.1 L Carbon Dioxide 37 H BUN 21 H Creatinine 0.2 L Glucose 230 H POC Glucose 173 H 190 H Calcium ALT Alkaline Phosphatase NT-Pro-B Natriuret Pep Total Protein Albumin Urine WBC (Auto) 09/20/21 09/20/21 09/20/21 04:32 07:57 11:06 WBC Hct RDW Lymph % (Auto) [place] % (Auto) Lymph # (Auto) [place] # (Auto) Seg Neutrophils % Seg Neuts % (Manual) Lymphocytes % (Manual) Seg Neutrophils # Seg Neutrophils # Man Lymphocytes # (Manual) D-Dimer ABG pH ABG pO2 ABG HCO3 ABG O2 Saturation ABG Base Excess Oxyhemoglobin Sodium 135 L Potassium Chloride 92.3 L Carbon Dioxide 33 H BUN 18 H Creatinine 0.2 L Glucose 264 H POC Glucose 237 H 232 H Calcium ALT Alkaline Phosphatase NT-Pro-B Natriuret Pep Total Protein Albumin Urine WBC (Auto) 09/20/21 09/20/21 09/21/21 15:19 20:04 07:24 WBC Hct RDW Lymph % (Auto) [place] % (Auto) Lymph # (Auto) [place] # (Auto) Seg Neutrophils % Seg Neuts % (Manual) Lymphocytes % (Manual) Seg Neutrophils # Seg Neutrophils # Man Lymphocytes # (Manual) D-Dimer ABG pH ABG pO2 ABG HCO3 ABG O2 Saturation ABG Base Excess Oxyhemoglobin Sodium Potassium Chloride Carbon Dioxide BUN Creatinine Glucose POC Glucose 195 H 209 H 58 L Calcium ALT Alkaline Phosphatase NT-Pro-B Natriuret Pep Total Protein Albumin Urine WBC (Auto) 09/21/21 09/21/21 09/21/21 11:42 15:48 21:10 WBC Hct RDW Lymph % (Auto) [place] % (Auto) Lymph # (Auto) [place] # (Auto) Seg Neutrophils % Seg Neuts % (Manual) Lymphocytes % (Manual) Seg Neutrophils # Seg Neutrophils # Man Lymphocytes # (Manual) D-Dimer ABG pH ABG pO2 ABG HCO3 ABG O2 Saturation ABG Base Excess Oxyhemoglobin Sodium Potassium Chloride Carbon Dioxide BUN Creatinine Glucose POC Glucose 137 H 192 H 321 H Calcium ALT Alkaline Phosphatase NT-Pro-B Natriuret Pep Total Protein Albumin Urine WBC (Auto) 09/22/21 09/22/21 09/22/21 07:31 11:20 16:08 WBC Hct RDW Lymph % (Auto) [place] % (Auto) Lymph # (Auto) [place] # (Auto) Seg Neutrophils % Seg Neuts % (Manual) Lymphocytes % (Manual) Seg Neutrophils # Seg Neutrophils # Man Lymphocytes # (Manual) D-Dimer ABG pH ABG pO2 ABG HCO3 ABG O2 Saturation ABG Base Excess Oxyhemoglobin Sodium Potassium Chloride Carbon Dioxide BUN Creatinine Glucose POC Glucose 189 H 186 H 182 H Calcium ALT Alkaline Phosphatase NT-Pro-B Natriuret Pep Total Protein Albumin Urine WBC (Auto) 09/22/21 09/23/21 09/23/21 21:55 08:02 12:09 WBC Hct RDW Lymph % (Auto) [place] % (Auto) Lymph # (Auto) [place] # (Auto) Seg Neutrophils % Seg Neuts % (Manual) Lymphocytes % (Manual) Seg Neutrophils # Seg Neutrophils # Man Lymphocytes # (Manual) D-Dimer ABG pH ABG pO2 ABG HCO3 ABG O2 Saturation ABG Base Excess Oxyhemoglobin Sodium Potassium Chloride Carbon Dioxide BUN Creatinine Glucose POC Glucose 235 H 114 H 176 H Calcium ALT Alkaline Phosphatase NT-Pro-B Natriuret Pep Total Protein Albumin Urine WBC (Auto) 09/23/21 09/23/21 09/24/21 17:21 20:20 07:50 WBC Hct RDW Lymph % (Auto) [place] % (Auto) Lymph # (Auto) [place] # (Auto) Seg Neutrophils % Seg Neuts % (Manual) Lymphocytes % (Manual) Seg Neutrophils # Seg Neutrophils # Man Lymphocytes # (Manual) D-Dimer ABG pH ABG pO2 ABG HCO3 ABG O2 Saturation ABG Base Excess Oxyhemoglobin Sodium Potassium Chloride Carbon Dioxide BUN Creatinine Glucose POC Glucose 186 H 167 H 69 L Calcium ALT Alkaline Phosphatase NT-Pro-B Natriuret Pep Total Protein Albumin Urine WBC (Auto) 09/24/21 09/24/21 09/24/21 11:22 16:12 20:27 WBC Hct RDW Lymph % (Auto) [place] % (Auto) Lymph # (Auto) [place] # (Auto) Seg Neutrophils % Seg Neuts % (Manual) Lymphocytes % (Manual) Seg Neutrophils # Seg Neutrophils # Man Lymphocytes # (Manual) D-Dimer ABG pH ABG pO2 ABG HCO3 ABG O2 Saturation ABG Base Excess Oxyhemoglobin Sodium Potassium Chloride Carbon Dioxide BUN Creatinine Glucose POC Glucose 230 H 193 H 252 H Calcium ALT Alkaline Phosphatase NT-Pro-B Natriuret Pep Total Protein Albumin Urine WBC (Auto) 09/25/21 09/25/21 09/25/21 07:45 11:24 15:04 WBC Hct RDW Lymph % (Auto) [place] % (Auto) Lymph # (Auto) [place] # (Auto) Seg Neutrophils % Seg Neuts % (Manual) Lymphocytes % (Manual) Seg Neutrophils # Seg Neutrophils # Man Lymphocytes # (Manual) D-Dimer ABG pH ABG pO2 ABG HCO3 ABG O2 Saturation ABG Base Excess Oxyhemoglobin Sodium Potassium Chloride Carbon Dioxide BUN Creatinine Glucose POC Glucose 46 L 161 H 165 H Calcium ALT Alkaline Phosphatase NT-Pro-B Natriuret Pep Total Protein Albumin Urine WBC (Auto) 09/25/21 09/26/21 09/26/21 21:04 07:33 11:16 WBC Hct RDW Lymph % (Auto) [place] % (Auto) Lymph # (Auto) [place] # (Auto) Seg Neutrophils % Seg Neuts % (Manual) Lymphocytes % (Manual) Seg Neutrophils # Seg Neutrophils # Man Lymphocytes # (Manual) D-Dimer ABG pH ABG pO2 ABG HCO3 ABG O2 Saturation ABG Base Excess Oxyhemoglobin Sodium Potassium Chloride Carbon Dioxide BUN Creatinine Glucose POC Glucose 263 H 207 H 179 H Calcium ALT Alkaline Phosphatase NT-Pro-B Natriuret Pep Total Protein Albumin Urine WBC (Auto) 09/26/21 09/26/21 09/27/21 15:54 21:02 07:42 WBC Hct RDW Lymph % (Auto) [place] % (Auto) Lymph # (Auto) [place] # (Auto) Seg Neutrophils % Seg Neuts % (Manual) Lymphocytes % (Manual) Seg Neutrophils # Seg Neutrophils # Man Lymphocytes # (Manual) D-Dimer ABG pH ABG pO2 ABG HCO3 ABG O2 Saturation ABG Base Excess Oxyhemoglobin Sodium Potassium Chloride Carbon Dioxide BUN Creatinine Glucose POC Glucose 128 H 122 H 192 H Calcium ALT Alkaline Phosphatase NT-Pro-B Natriuret Pep Total Protein Albumin Urine WBC (Auto) 09/27/21 09/27/21 09/27/21 12:01 16:22 20:48 WBC Hct RDW Lymph % (Auto) [place] % (Auto) Lymph # (Auto) [place] # (Auto) Seg Neutrophils % Seg Neuts % (Manual) Lymphocytes % (Manual) Seg Neutrophils # Seg Neutrophils # Man Lymphocytes # (Manual) D-Dimer ABG pH ABG pO2 ABG HCO3 ABG O2 Saturation ABG Base Excess Oxyhemoglobin Sodium Potassium Chloride Carbon Dioxide BUN Creatinine Glucose POC Glucose 264 H 297 H 263 H Calcium ALT Alkaline Phosphatase NT-Pro-B Natriuret Pep Total Protein Albumin Urine WBC (Auto) 09/28/21 09/28/21 09/28/21 05:38 05:38 07:33 WBC Hct RDW 18.3 H Lymph % (Auto) 9.3 L [place] % (Auto) 7.7 H Lymph # (Auto) 0.6 L [place] # (Auto) Seg Neutrophils % 82.5 H Seg Neuts % (Manual) Lymphocytes % (Manual) Seg Neutrophils # Seg Neutrophils # Man Lymphocytes # (Manual) D-Dimer ABG pH ABG pO2 ABG HCO3 ABG O2 Saturation ABG Base Excess Oxyhemoglobin Sodium 134 L Potassium Chloride 87.4 L Carbon Dioxide 39 H BUN 21 H Creatinine < 0.2 L Glucose 154 H POC Glucose 144 H Calcium ALT 63 H Alkaline Phosphatase NT-Pro-B Natriuret Pep Total Protein 6.0 L Albumin 3.6 L Urine WBC (Auto) 09/28/21 09/28/21 09/28/21 11:35 15:41 20:26 WBC Hct RDW Lymph % (Auto) [place] % (Auto) Lymph # (Auto) [place] # (Auto) Seg Neutrophils % Seg Neuts % (Manual) Lymphocytes % (Manual) Seg Neutrophils # Seg Neutrophils # Man Lymphocytes # (Manual) D-Dimer ABG pH ABG pO2 ABG HCO3 ABG O2 Saturation ABG Base Excess Oxyhemoglobin Sodium Potassium Chloride Carbon Dioxide BUN Creatinine Glucose POC Glucose 196 H 228 H 178 H Calcium ALT Alkaline Phosphatase NT-Pro-B Natriuret Pep Total Protein Albumin Urine WBC (Auto) 09/29/21 09/29/21 09/29/21 11:32 16:44 21:17 WBC Hct RDW Lymph % (Auto) [place] % (Auto) Lymph # (Auto) [place] # (Auto) Seg Neutrophils % Seg Neuts % (Manual) Lymphocytes % (Manual) Seg Neutrophils # Seg Neutrophils # Man Lymphocytes # (Manual) D-Dimer ABG pH ABG pO2 ABG HCO3 ABG O2 Saturation ABG Base Excess Oxyhemoglobin Sodium Potassium Chloride Carbon Dioxide BUN Creatinine Glucose POC Glucose 217 H 287 H 251 H Calcium ALT Alkaline Phosphatase NT-Pro-B Natriuret Pep Total Protein Albumin Urine WBC (Auto) 09/30/21 09/30/21 09/30/21 10:54 16:36 16:45 WBC Hct RDW Lymph % (Auto) [place] % (Auto) Lymph # (Auto) [place] # (Auto) Seg Neutrophils % Seg Neuts % (Manual) Lymphocytes % (Manual) Seg Neutrophils # Seg Neutrophils # Man Lymphocytes # (Manual) D-Dimer ABG pH 7.208 L ABG pO2 67.1 L ABG HCO3 42.8 H ABG O2 Saturation 90.1 L ABG Base Excess 10.3 H Oxyhemoglobin 88.1 L Sodium Potassium Chloride Carbon Dioxide BUN Creatinine Glucose POC Glucose 150 H 250 H Calcium ALT Alkaline Phosphatase NT-Pro-B Natriuret Pep Total Protein Albumin Urine WBC (Auto) 09/30/21 09/30/21 10/01/21 18:27 18:27 08:36 WBC 11.5 H Hct RDW 18.9 H Lymph % (Auto) [place] % (Auto) Lymph # (Auto) [place] # (Auto) Seg Neutrophils % Seg Neuts % (Manual) 99.0 H Lymphocytes % (Manual) 0 L Seg Neutrophils # Seg Neutrophils # Man 11.4 H Lymphocytes # (Manual) 0.0 L D-Dimer ABG pH ABG pO2 ABG HCO3 ABG O2 Saturation ABG Base Excess Oxyhemoglobin Sodium Potassium Chloride 89.0 L Carbon Dioxide 36 H BUN 19 H Creatinine < 0.2 L Glucose 430 H POC Glucose 270 H Calcium ALT 117 H Alkaline Phosphatase 135 H NT-Pro-B Natriuret Pep Total Protein Albumin 3.7 L Urine WBC (Auto) 10/01/21 10/01/21 10/02/21 11:08 15:23 07:59 WBC Hct RDW Lymph % (Auto) [place] % (Auto) Lymph # (Auto) [place] # (Auto) Seg Neutrophils % Seg Neuts % (Manual) Lymphocytes % (Manual) Seg Neutrophils # Seg Neutrophils # Man Lymphocytes # (Manual) D-Dimer ABG pH ABG pO2 ABG HCO3 ABG O2 Saturation ABG Base Excess Oxyhemoglobin Sodium Potassium Chloride Carbon Dioxide BUN Creatinine Glucose POC Glucose 235 H 222 H 193 H Calcium ALT Alkaline Phosphatase NT-Pro-B Natriuret Pep Total Protein Albumin Urine WBC (Auto) 10/02/21 10/02/21 10/02/21 11:49 15:44 20:57 WBC Hct RDW Lymph % (Auto) [place] % (Auto) Lymph # (Auto) [place] # (Auto) Seg Neutrophils % Seg Neuts % (Manual) Lymphocytes % (Manual) Seg Neutrophils # Seg Neutrophils # Man Lymphocytes # (Manual) D-Dimer ABG pH ABG pO2 ABG HCO3 ABG O2 Saturation ABG Base Excess Oxyhemoglobin Sodium Potassium Chloride Carbon Dioxide BUN Creatinine Glucose POC Glucose 298 H 292 H 261 H Calcium ALT Alkaline Phosphatase NT-Pro-B Natriuret Pep Total Protein Albumin Urine WBC (Auto) 10/03/21 10/03/21 10/03/21 00:33 01:46 03:53 WBC Hct RDW Lymph % (Auto) [place] % (Auto) Lymph # (Auto) [place] # (Auto) Seg Neutrophils % Seg Neuts % (Manual) Lymphocytes % (Manual) Seg Neutrophils # Seg Neutrophils # Man Lymphocytes # (Manual) D-Dimer ABG pH ABG pO2 71.5 L ABG HCO3 48.0 H ABG O2 Saturation ABG Base Excess 12.8 H Oxyhemoglobin 87.4 L Sodium Potassium Chloride Carbon Dioxide BUN Creatinine Glucose POC Glucose 250 H 231 H Calcium ALT Alkaline Phosphatase NT-Pro-B Natriuret Pep Total Protein Albumin Urine WBC (Auto) 10/03/21 10/03/21 10/03/21 06:05 09:01 09:10 WBC Hct RDW Lymph % (Auto) [place] % (Auto) Lymph # (Auto) [place] # (Auto) Seg Neutrophils % Seg Neuts % (Manual) Lymphocytes % (Manual) Seg Neutrophils # Seg Neutrophils # Man Lymphocytes # (Manual) D-Dimer ABG pH 7.097 L* 7.144 L* ABG pO2 104.0 H 67.1 L ABG HCO3 47.4 H 47.1 H ABG O2 Saturation 92.0 L ABG Base Excess 12.4 H 13.0 H Oxyhemoglobin 94.4 L 90.0 L Sodium Potassium Chloride Carbon Dioxide BUN Creatinine Glucose POC Glucose 223 H Calcium ALT Alkaline Phosphatase NT-Pro-B Natriuret Pep Total Protein Albumin Urine WBC (Auto)
[2021-10-03] MEDS ORDERED: levETIRAcetam 1,000 MG in DEXTROSE 5% IN WATER 100 ML IV SCH (11:30)
--- NOTE | 2021-10-03 12:25 | Event Note ---
Date: 10/03/21 Patient transferred to ICU secondary to hypotension and altered mental state. Acidotic on gas from hypercapnea which likely led to hypotension. Both improving but patients mental state is not. Per report seizure like activity but none witnessed. Asked the daughter to come up emergently to bedside to visit. Showed her her mothers' CT of chest and compared it to a normal CT. She became tearful when I told her that if we put her mother on a ventilator she would never come off and she would likely pass on the vent. Asked about AND status after I gave her some time to visit with her mother. She agrees to this. Will continue bipap to see if this improves mental state. If not improvement, then will pursue comfort measures with family. Patient has been hospitalized for at least 6 months. very very poor prognosis.
[2021-10-03 15:20] VITALS: BP 54/27
--- NOTE | 2021-10-03 15:33 | Death Summary ---
Summary - Providers Date of service: 10/03/21 Consults: 09/01/21 01:25 Consult to Dietitian/Nutrition [CONS] Routine Physician Instructions: Reason For Exam: Reason for Consult: Diet education Consult to Physician [CONS] Routine Comment: Consulting Provider: JALIL LYNCH Physician Instructions: Reason For Exam: respiratory failure 09/10/21 09:09 Physical Therapy Evaluation and Treat [CONS] Stat Comment: Reason For Exam: eval and treat 09/11/21 13:21 psychiatry consult [Consult to Mental Health] [CONS] Routine Reason For Exam: Generalized anxiety and panic episodes Attending: SAILAJA ACOSTA MD - summary Date of admission: 09/01/21 01:25 Date of : 10/03/21 - Final diagnosis (1) Cardiac arrest Note: Final diagnosis: Called to see patient for unresponsiveness. On exam the patient did not respond to verbal or physical stimuli. Absent heart and breath sounds.Absent peripheral pulses. Pupils are fixed and dilated. Patient pronounced at 15:15. All life support machinery discontinued. Next of kin notified. (2) Acute hypercapnic respiratory failure Note: Final diagnosis: (3) Pulmonary fibrosis, postinflammatory Note: Final diagnosis: (4) Pneumonia due to SARS-associated coronavirus Note: Final diagnosis:
== END 2021-10-03 15:15 | DRG 189 ==
LOC: ED 19:01 → IMCU 09-01 01:25 → 3A 09-04 22:01 → 4A 09-20 01:08 → CC1 10-03 03:22
PROVIDERS: ADMIT Hospitalist; ATTEND Internal Medicine
PROC: 5A09357 Assistance with Respiratory Ventilation, Less than 24 Consecutive Hours, Continuous Positive Airway Pressure (ICD-10-PCS; 2021-09-01)
PROC: 5A0955A Assistance with Respiratory Ventilation, Greater than 96 Consecutive Hours, High Flow/Velocity Cannula (ICD-10-PCS; 2021-09-02)
PROC: 5A09357 Assistance with Respiratory Ventilation, Less than 24 Consecutive Hours, Continuous Positive Airway Pressure (ICD-10-PCS; 2021-09-05)
PROC: 5A09357 Assistance with Respiratory Ventilation, Less than 24 Consecutive Hours, Continuous Positive Airway Pressure (ICD-10-PCS; 2021-09-07)
PROC: 5A09357 Assistance with Respiratory Ventilation, Less than 24 Consecutive Hours, Continuous Positive Airway Pressure (ICD-10-PCS; 2021-09-13)
PROC: 5A09357 Assistance with Respiratory Ventilation, Less than 24 Consecutive Hours, Continuous Positive Airway Pressure (ICD-10-PCS; 2021-09-15)
PROC: 5A09357 Assistance with Respiratory Ventilation, Less than 24 Consecutive Hours, Continuous Positive Airway Pressure (ICD-10-PCS; 2021-09-19)
PROC: 5A09357 Assistance with Respiratory Ventilation, Less than 24 Consecutive Hours, Continuous Positive Airway Pressure (ICD-10-PCS; 2021-09-23)
PROC: 5A09557 Assistance with Respiratory Ventilation, Greater than 96 Consecutive Hours, Continuous Positive Airway Pressure (ICD-10-PCS; 2021-09-26)
PROC: 4A033R1 Measurement of Arterial Saturation, Peripheral, Percutaneous Approach (ICD-10-PCS; principal; 2021-10-03)
DX: J96.21 Acute and chronic respiratory failure with hypoxia (principal); A41.51 Sepsis due to Escherichia coli [E. coli]; J12.81 Pneumonia due to SARS-associated coronavirus; K56.7 Ileus, unspecified; N39.0 Urinary tract infection, site not specified; J96.22 Acute and chronic respiratory failure with hypercapnia; E11.9 Type 2 diabetes mellitus without complications; U09.9 Post COVID-19 condition, unspecified; E78.00 Pure hypercholesterolemia, unspecified; Z79.4 Long term (current) use of insulin; E78.5 Hyperlipidemia, unspecified; F41.1 Generalized anxiety disorder; E87.6 Hypokalemia; J84.10 Pulmonary fibrosis, unspecified; I46.9 Cardiac arrest, cause unspecified
CPT/HCPCS: 36415; 36600; 70450; 71045; 71275; 74018; 80048; 80053; 81001; 82803; 82962; 83735; 83880; 84703; 85007; 85025; 85027; 85379; 87040; 87076; 87086; 87186; 93005; 94640; 94660; 94760; 99291; G0378; J3490; J7060; Q0162; Q9967; J0456; J0696; J1100; J1170; J1644; J1650; J1815; J1940; J1953; J2060; J2405; J2920; J2930; J3480; J7030; J7040; J7512